=== PATIENT | female | born 1995 | race Caucasian/White ===

== ENCOUNTER 2018-03-04 18:51 | Outpatient (REF) | payer MEDICAID, SELFPAY | END 2018-03-04 19:11 | LOC: NCHCN 18:51 | PROVIDERS: PCP Nurse Practitioner Family; Visit Provider Family Medicine | DX: R34 Anuria and oliguria (principal) | CPT/HCPCS: 87086 ==

== ENCOUNTER 2018-03-23 12:07 | Outpatient (CLI) | payer MEDICAID, SELFPAY ==
[2018-03-23 13:27] LABS: Albumin 4.1 g/dL (3.4-5.0); Anion Gap 12.7 mmol/L (3-11); BUN 11 mg/dL (7-18); CO2 26.3 mmol/L (21.0-32.0); CREATININE 0.31 mg/dL (0.55-1.02); Calcium 9.7 mg/dL (8.5-10.1); Chloride 103 mmol/L (98-107); Glucose 73 mg/dL (70-100); PHOSPHORUS 4.2 mg/dL (2.6-4.7); Potassium 4.1 mmol/L (3.5-5.1); Sodium 142 mmol/L (136-145)
== END 2018-03-23 12:27 ==
PROVIDERS: PCP Nurse Practitioner Family; Visit Provider Nurse Practitioner Gerontology
DX: R34 Anuria and oliguria (principal)
CPT/HCPCS: 36415; 80069

== ENCOUNTER 2018-10-22 12:41 | Emergency (ER) | payer MEDICAID, SELFPAY ==
[2018-10-22] MEDS: Acetaminophen 325 MG TAB 650 MG PO (12:30)
[2018-10-22 12:35] VITALS: PULSE 88; RESP 18; TEMP 36.8; O2SAT 95
--- NOTE | 2018-10-22 12:51 | DI.RAD_ITS ---
SYMPTOMS/DIAGNOSIS: S/P FALL, ? FRACTURE LEFT HUMERUS: AP and transthoracic lateral views were performed. No fracture is identified. Elbow and shoulder are unremarkable as visualized. IMPRESSION: Negative left humerus. AP PELVIS: AP view of the pelvis was obtained and shows chronic severe pelvic deformity and fragmentation of both acetabula and proximal femurs, presumably chronic. Mcnair rods are in place in the lumbar spine and fixation screws transfix the SI joints. No acute fracture identified. LEFT KNEE: Two views were obtained. No acute fracture seen. LEFT WRIST: Three views were obtained. No fracture seen. SUPINE AP AND LATERAL CHEST: Supine views of the chest was performed. Rods are seen through the thoracolumbar spine. There are chronic spine and rib deformities. The heart size appears normal. The lungs are clear. IMPRESSION: No acute abnormality. RIGHT SHOULDER: The positioning is suboptimal. No fracture or dislocation is seen. IMPRESSION: No acute abnormality.
--- NOTE | 2018-10-22 12:56 | ED.GENADUL_ITS ---
Discharge Plan Disposition Patient Disposition: HOME Condition: Stable Discharge Details Chief Complaint: Trauma Clinical Impression: Fall from wheelchair, Abrasion of face, Abrasion of multiple sites of lower extremity, Abrasion of multiple sites of upper extremity and shoulder Primary Care Provider: Lorna Bal ED Provider: Magdalena Calderon Home Meds and New Rx's Prescriptions: Continued lorazepam 1 MG tablet 1 mg PO PRN Qty: 20 RF: 0 diazepam 5 MG/5 ML solution 3 mg PO Q8H PRN Qty: 60 RF: 0 polyethylene glycol 3350 17 GM powder in packet 1 - 2 cap PO DAILY Qty: 1 RF: 3 nystatin 60 GM powder 1 julio cesar Topical QID Qty: 60 RF: 2 capsaicin 60 GM cream 1 julio cesar Topical TID Qty: 60 RF: 2 baclofen 10 MG tablet 1 tab PO BID Qty: 180 RF: 3 levonorgestrel-ethinyl estrad [Introvale] 1 EACH tablets,dose pack,3 month 1 ea PO DAILY Qty: 1 RF: 2 multivitamin [Daily Multi-Vitamin] 1 EACH tablet 1 ea PO DAILY RF: 0 clotrimazole 15 GM cream 15 gm Topical DIRECTED RF: 0 Discharge Instructions Instructions: Head Injury (ED), Abrasion (ED), Fall Prevention (ED) Additional Instructions: Alternate Tylenol and Motrin as needed and directed for pain. Apply ice to the affected area several times daily for 20 minutes at a time. Follow-up with the primary care doctor next week for reevaluation. Return immediately to the emergency department if you develop any worsening or new concerning symptoms. Discharge Data Discharge Date/Time-TO BE ENTERED AT DEPARTURE: 10/22/18 15:36 Discharge Physician: Magdalena Calderon Medical Decision Making 23yo F w/ a history of cerebral palsy, TBI, scoliosis and back surgery who presents status post mechanical fall out of wheelchair. Vitals within normal limits. Patient noted to have abrasion to right face, and multiple extremity abrasions but no deformities. Lungs clear to auscultation. Chest and abdomen no trauma and nontender. No C-spine/T-spine/L-spine step-off or evidence of trauma. Due to being unable to obtain a history, and evidence of trauma, patient sent for CT head/facial bones/cervical spine in addition to chest x-ray, pelvis x- ray, left wrist x-ray, left humerus x-ray, left knee x-ray, right shoulder x-ray all of which were discussed with radiologist and negative. Patient was smiling prior to discharge. Mom felt comfortable taking patient home. She was given a dose of Tylenol here. Instructed to follow-up with primary care doctor for reevaluation and to return here anytime if worse. Medical Records Medical records reviewed: Yes I reviewed the patient's medical records. Imaging Data Radiologic Study: Radiologist's impression: CRANIAL CT: Noncontrast cranial CT was performed. The orbital and temporal bone structures appear intact. The mastoid air cells and paranasal sinuses are well aerated. No acute calvarial or facial fracture identified. There are severe changes of cerebral atrophy which appear chronic with marked encephalomalacia also noted particularly over the cerebral vertex and occipital region on the left. No evidence of acute intracranial hemorrhage, mass effect or midline shift. CONCLUSION: No evidence of acute intracranial injury. CERVICAL SPINE CT: CT examination of the cervical spine was performed utilizing multi-slice acquisition and multi-planar reconstruction. Note is made of Mcnair rods of the upper thoracic region which obscure portions of the upper thoracic posterior elements. No evidence of acute cervical fracture or dislocation. No cervical mass or adenopathy. The tracheal laryngeal structures appear intact. The lung apices appear clear. CONCLUSION: No evidence of acute cervical fracture. FACIAL CT: CT examination of the facial region was performed utilizing multi-slice acquisition and multi-planar reconstruction. Orbital structures appear intact. The paranasal sinuses are well aerated. No fracture seen involving the facial bones. Mandible appears intact as visualized. CONCLUSION: No evidence of acute facial fracture. HPI General Mode of arrival: EMS . Date/Time Provider Initiated Documentation: 10/22/18 13:20 . Limitations to Documentation: physical limitation and other (nonverbal) . Information obtained by: family . HPI Narrative: Patient is a 23-year-old female with a history of cerebral palsy, TBI with history of scoliosis and spine surgery who presents status post fall out of wheelchair. [employer] Worker states that they were pushing wheelchair up a ramp when patient was not secured in properly and she fell forward out of her wheelchair striking her head and extremities on the ground. Patient arrived to ED collared by EMS. Patient is able to make some sounds at baseline but is otherwise nonverbal and unable to provide history. Caretakers deny any LOC or vomiting. Related Data Home Medications Medication Instructions Recorded Confirmed lorazepam 1 mg PO PRN #20 02/24/13 03/24/18 diazepam 3 mg PO Q8H PRN #60 ml 01/19/14 03/24/18 polyethylene glycol 3350 1 - 2 cap PO DAILY #1 bottle 09/20/14 03/24/18 nystatin 1 julio cesar TOPICAL QID #60 gm 12/08/14 03/24/18 capsaicin 1 julio cesar TOPICAL TID #60 gm 04/10/16 03/24/18 baclofen 1 tab PO BID #180 tab 06/13/16 03/24/18 levonorgestrel-ethinyl estrad 1 ea PO DAILY #1 pack 06/13/16 03/24/18 [Introvale] clotrimazole 15 gm TOPICAL DIRECTED 09/08/17 03/24/18 multivitamin [Daily Multi-Vitamin] 1 ea PO DAILY 09/08/17 03/24/18 Allergies Allergy/AdvReac Type Severity Reaction Status Date / Time cyclobenzaprine Allergy Unknown Unverified 09/11/17 06:39 fluoxetine AdvReac Unknown Per Unverified 09/11/17 06:39 caregiver General Stated Complaint: Trauma SANG: 3 Review of Systems Review of Systems All systems reviewed & are unremarkable except as noted in HPI and below Constitutional Reports as per HPI, Denies chills and Denies fever(s) Eyes Denies blurry vision ENT Denies dizziness, Denies sore throat and Denies throat swelling Cardiovascular Denies chest pain and Denies dyspnea Respiratory Denies cough and Denies dyspnea Gastrointestinal Denies abdominal pain, Denies diarrhea and Denies vomiting Genitourinary Denies hematuria and Denies dysuria Musculoskeletal Denies back pain and Denies numbness Integumentary/Breasts Denies lesions and Denies rash Neurologic Denies dizziness, Denies focal weakness and Denies numbness Allergic/Immunologic Denies throat swelling [facility] Medical History Cognitive and neurobehavioral dysfunction following brain injury Femur fracture Idiopathic urticaria Neuromuscular scoliosis Presence of intrathecal baclofen pump Quadriplegic cerebral palsy Scoliosis Spasticity Supraventricular tachycardia Surgical History Mediport placement hip release Social History Smoking/Tobacco Use Status: Never Alcohol Intake: never Drug use: Never Do you feel safe at home: Yes Do you feel safe in your relationship?: Yes Exam Const General: cooperative and no acute distress Orientation: alert and awake [facility] Head images: 1. Superficial abrasions noted to R side of face. No bony deformity. Ears: hearing grossly normal bilaterally, external ears normal and TM's normal bilaterally General nose exam: external nose normal Face and sinus: normal facial exam Mouth: oral mucosae normal Teeth and gingiva: dentition normal Throat: posterior oropharynx normal Eyes General: appearance normal, both eyes and all related structures Eyelids: eyelids normal Pupils: PERRL EOM: EOM intact bilaterally Neck Neck: normal visual inspection Lymphatic: no lymphadenopathy noted Other: in c collar Chest Chest: normal inspection of the chest, normal palpation of entire chest wall and no tenderness Resp Effort & Inspection: normal respiratory effort and able to speak in complete sentences Auscultation: clear to auscultation bilaterally Cardio Rate: regular rate Rhythm: regular rhythm GI Inspection: normal to inspection and no abdominal wall ecchymosis Palpation: soft, not firm, no guarding, no hepatosplenomegaly, no masses and nontender Auscultation: normal bowel sounds Back/Spine/Pelvis Cervical Spine: No step off deformity Thoracic/Lumbar Spine: other (no step off deformity noted to thoracic or lumbar spine) Pelvis: no pain with anterior-posterior compression and no pain with lateral compression Skin General skin exam: no rashes or lesions noted Neuro General: alert and awake Cognition: normal cognition Speech: speech normal Gait: normal gait Motor: muscle tone normal throughout Sensory Exam: no sensory deficits noted Extrem Other: Superficial abrasions noted to left upper arm, right anterior shoulder, bilateral dorsal wrists, bilateral posterior elbows, left anterior knee. No deformities noted to any extremities. Patient has bilateral lower leg atrophy with chronic external rotation at hips b/l. Psych Appearance: grossly normal Mental Status: mental status grossly normal Speech and Movement: speech and movement normal Affect: normal affect Thought Process: normal Course Vital Signs Temperature 98.2 F 10/22/18 12:35 Pulse 88 10/22/18 12:35 Respiratory Rate 18 10/22/18 12:35 Pulse Oximetry 95 10/22/18 12:35 Temperature 98.2 F 10/22/18 12:35 Temperature Source Skin 10/22/18 12:35 Pulse 88 10/22/18 12:35 Respiratory Rate 18 10/22/18 12:35 Pulse Oximetry 95 10/22/18 12:35 Oxygen Delivery Method Room Air 10/22/18 12:35 Oxygen Flow Rate 0 10/22/18 12:35
--- NOTE | 2018-10-22 13:48 | DI.CT_ITS ---
SYMPTOMS/DIAGNOSIS: S/P FALL ONTO GROUND, ABRASIONS RT EYE/FACE, ? ACUTE FACIAL FX/INTRACRANIAL INJURY/CERVICAL FRACTURE CRANIAL CT: Noncontrast cranial CT was performed. The orbital and temporal bone structures appear intact. The mastoid air cells and paranasal sinuses are well aerated. No acute calvarial or facial fracture identified. There are severe changes of cerebral atrophy which appear chronic with marked encephalomalacia also noted particularly over the cerebral vertex and occipital region on the left. No evidence of acute intracranial hemorrhage, mass effect or midline shift. CONCLUSION: No evidence of acute intracranial injury. CERVICAL SPINE CT: CT examination of the cervical spine was performed utilizing multi-slice acquisition and multi-planar reconstruction. Note is made of Mcnair rods of the upper thoracic region which obscure portions of the upper thoracic posterior elements. No evidence of acute cervical fracture or dislocation. No cervical mass or adenopathy. The tracheal laryngeal structures appear intact. The lung apices appear clear. CONCLUSION: No evidence of acute cervical fracture. FACIAL CT: CT examination of the facial region was performed utilizing multi-slice acquisition and multi-planar reconstruction. Orbital structures appear intact. The paranasal sinuses are well aerated. No fracture seen involving the facial bones. Mandible appears intact as visualized. CONCLUSION: No evidence of acute facial fracture.
--- NOTE | 2018-10-22 14:37 | NUR.NOTE ---
Nursing Note: Abrasion noted to right catholic region. Tenderness and swelling noted to the left upper extremity and left lower extremity.
[2018-10-22 15:40] VITALS: BP 100/64; PULSE 91; RESP 14; TEMP 36.6; O2SAT 97
== END 2018-10-22 15:36 | disposition home or self-care (01) ==
PROVIDERS: Emergency Provider Physician Assistant; PCP Nurse Practitioner Family
DX: S00.81XA Abrasion of other part of head, initial encounter (principal); S40.211A Abrasion of right shoulder, initial encounter; S80.212A Abrasion, left knee, initial encounter; S70.212A Abrasion, left hip, initial encounter; S60.812A Abrasion of left wrist, initial encounter; W05.0XXA Fall from non-moving wheelchair, initial encounter; G82.50 Quadriplegia, unspecified
CPT/HCPCS: 90471; 99284; 70450; 70486; 71046; 72125; 72170; 73030; 73060; 73110; 73560

== ENCOUNTER 2020-08-31 00:32 | Outpatient (CLI) | payer MEDICAID, SELFPAY ==
--- NOTE | 2020-08-31 13:00 | NS.NUTBLAN_ITS ---
Tana was referred for Medical Nutrition Therapy for wellness check and for strategies for caregivers to increase her fluid intake. Tana also has constipation that is treated with mirilax and senna. Tana is quadriplegic with cognitive dysfunction, spasticity, hyptonia, contractures with hx of pressure ulcers to bilateral heels. No new labs to review. Estimated Needs: [id number] kcal, 50-60 g protein, 1700 ml fluid Weight taken with pelon lift: 131 lbs Ht: 62 in (documented), appears closer to 60 inches. Up 6 lbs in last 2 years. BMI: 26 (based on 60 inches). Weight is appropriate at this time, but further weight gain is not recommended. Tana appears well nourished, has had excellent mouth care. weaver [place] (Di) reports that Tana typically will only drink [place] Suns and will not drink other fluids unless bargained with. Diet recall indicates well balanced meals with focus on complex carbs, lean protein, fruits and vegetables and healthy fats. Laurie does not regularly eat simple carbs or junk foods, care givers provider her with home cooked meals and encourage her to try new things on regular basis. Reviewed different foods to offer that also count as fluids such as soups, jello, yogurt, pudding, ice pops. Goal at this time is for weight maintenance and adequate hydration. Follow up appt. scheduled for 03/05/21 at 1 pm.
== END 2020-08-31 00:33 | disposition home or self-care (01) ==
LOC: DS 00:32
PROVIDERS: PCP Nurse Practitioner Family; Visit Provider Dietitian, Registered
DX: R63.8 Other symptoms and signs concerning food and fluid intake (principal); K59.00 Constipation, unspecified; G80.0 Spastic quadriplegic cerebral palsy; Z87.820 Personal history of traumatic brain injury; Z68.26 Body mass index [BMI] 26.0-26.9, adult; Z71.3 Dietary counseling and surveillance
CPT/HCPCS: 97802

== ENCOUNTER 2021-04-02 17:35 | Outpatient (REF) | payer MEDICAID, SELFPAY ==
[2021-04-03 14:22] LABS: COVID-19 RT-PCR UVMMC Result Negative (Negative)
== END 2021-04-02 17:36 | disposition home or self-care (01) ==
LOC: NCHCN 17:35
PROVIDERS: PCP Nurse Practitioner Family; Visit Provider Nurse Practitioner Family
DX: Z20.822 Contact with and (suspected) exposure to COVID-19 (principal)
CPT/HCPCS: U0003

== ENCOUNTER 2021-04-04 01:49 | Outpatient (CLI) | payer MEDICAID, SELFPAY ==
--- NOTE | 2021-04-04 | DI.RAD_ITS ---
Exam(s) XR CHEST 2V PA LATERAL EXAM: XR CHEST 2V PA LATERAL CLINICAL HISTORY: MYALGIA,M79.10, FEVER, R50.9. TECHNIQUE: 2D digital imaging was performed. COMPARISON: CR XR CHEST 2V PA LATERAL from 10/22/2018 FINDINGS: Mcnair rods again noted in the thoracolumbar spine. Heart size is normal. The mediastinum is not widened. Lungs are clear. No infiltrates nor pleural effusions. No fractures evident. IMPRESSION: No acute pulmonary findings. DATA REPOSITORY: RADIATION DOSE DELIVERED:
--- NOTE | 2021-04-04 | DI.RAD_ITS ---
Exam(s) XR WRIST RT COMPLETE EXAM: XR WRIST RT COMPLETE CLINICAL HISTORY: RT WRIST PAIN, [id number]. TECHNIQUE: 2D digital imaging was performed. COMPARISON: CR XR WRIST LT COMPLETE from 10/22/2018 FINDINGS: No evidence of acute fracture nor osseous lesions. On the lateral view distal ulna appears somewhat dorsally located. On the AP view is no evidence coleman iance. IMPRESSION: No fracture. DATA REPOSITORY: RADIATION DOSE DELIVERED:
--- NOTE | 2021-04-04 | DI.RAD_ITS ---
Exam(s) XR HIP PELVIS ADULT BL EXAM: XR HIP PELVIS ADULT BL CLINICAL HISTORY: BILAT HIP PAIN, [id number]. TECHNIQUE: 2D digital imaging was performed. COMPARISON: CR XR pelvis AP from 10/22/2018 FINDINGS: Again noted is chronic severe pelvic deformity fragmentation the level both acetabuli and femoral hea d-necks is again evident, this on a chronic basis. No acute fractures evident. No radiographic evid ence of osteomyelitis. Abundant fecal material again noted in rectum, unchanged. Appearance of the distal aspect of the hardware is unchanged. IMPRESSION: Severe pelvic-bilateral hip deformities but without significant radiographic change compared to 10/22. DATA REPOSITORY: RADIATION DOSE DELIVERED:
== END 2021-04-04 02:09 ==
PROVIDERS: PCP Nurse Practitioner Family; Visit Provider Nurse Practitioner Family
DX: M79.18 Myalgia, other site (principal); R50.9 Fever, unspecified; M25.551 Pain in right hip; M25.531 Pain in right wrist; M25.552 Pain in left hip; M85.88 Other specified disorders of bone density and structure, other site
CPT/HCPCS: 73521; 71046; 73110

== ENCOUNTER 2022-06-17 15:19 | Inpatient (IN) | payer MEDICAID, SELFPAY ==
[2022-06-17 15:27] VITALS: BP 112/73; PULSE 107; RESP 16; O2SAT 99
--- NOTE | 2022-06-17 16:00 | DI.RAD_ITS ---
Exam(s) XR THORACIC SPINE COMPLETE EXAM: XR THORACIC SPINE COMPLETE CLINICAL HISTORY: cellulitis, osteo?. TECHNIQUE: 2D digital imaging was performed of the thoracic spine. Three views were obtained. AP, swimmer's and lateral views were obtained. COMPARISON: CR XR CHEST 2V PA LATERAL from 04/04/2021 FINDINGS: BONES: There is no fracture or destructive lesion. The vertebral bodies and posterior elements are un remarkable. Posterior fusion hardware is again seen extending from the thoracic into the lumbar spine . It appears unchanged. DISKS:Alignment is within normal limits. Interverebral disc spaces are maintained. SOFT TISSUE: Visualized lungs are clear. IMPRESSION: No radiographic evidence to suggest acute osteomyelitis. DATA REPOSITORY: RADIATION DOSE DELIVERED:
--- NOTE | 2022-06-17 16:00 | DI.RAD_ITS ---
Exam(s) XR LUMBAR SPINE COMPLETE EXAM: XR LUMBAR SPINE COMPLETE CLINICAL HISTORY: cellulitis, osteo?. TECHNIQUE: 2D digital imaging was performed of the lumbar spine. Five images were obtained. AP, la teral, right oblique, left oblique and L5-S1 spot views were obtained. COMPARISON: CR XR pelvis AP from 10/22/2018 FINDINGS: BONES: No fracture or destructive lesion. Vertebral bodies are unremarkable. There is chronic deform ity of the hips which is only partially imaged. There again seen posterior spinal instrumentation. The orthopedic hardware appears intact. DISKS: Multilevel disc space narrowing is present. ALIGNMENT: There is again seen a right convex curvature of the lower thoracic and lumbar spine. No s pondylolysis or spondylolisthesis. SOFT TISSUE: There is a large amount of stool in the rectum which may represent fecal impaction. IMPRESSION: 1. No evidence to suggest acute osteomyelitis. 2. Large amount of stool in the rectum which may represent fecal impaction. DATA REPOSITORY: RADIATION DOSE DELIVERED:
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
[2022-06-17 16:42] LABS: Lactate 1.5 mmol/L (0.6-1.4)
[2022-06-17 16:44] LABS: Abs Immature Grans 0.02 10^3/uL (0.0-0.06); Absolute Basophil Count 0.05 10^3/uL (0.0-0.2); Absolute Eosinophil Count 0.04 10^3/uL (0.0-0.7); Absolute Lymphocyte Count 1.52 10^3/uL (1.2-3.4); Absolute Monocyte Count 0.48 10^3/uL (0.1-0.8); Absolute Neutrophil Count 7.39 10^3/uL (1.2-6.7); Basophils % 0.5; Eosinophils % 0.4; HCT 37.3 % (36.0-46.0); HGB 11.3 g/dL (11.2-15.7); Immature Grans % 0.2; MCH 23.5 pg (27.0-33.0); MCHC 30.3 % (32.0-36.0); MCV 78 fL (80-95); MPV 9.1 fL (8.0-11.0); Monocytes % 5.1; Neutrophils % 77.8; Platelet Count 565 10^3/uL (130-400); RBC 4.81 10^6/uL (3.93-5.22); RDW 17.2 % (11.7-14.6); RDW-SD 48.2 fL
[2022-06-17 16:47] LABS: ESR 56 mm/hr (0-20)
[2022-06-17 16:57] LABS: ALT 30 U/L (14-59); AST 14 U/L (15-37); Albumin 3.2 g/dL (3.4-5.0); Alkaline Phosphatase 167 U/L (46-116); Anion Gap 8.4 mmol/L (3-11); BUN 7 mg/dL (7-18); Bilirubin, Total 0.2 mg/dL (0.2-1.0); C-Reactive Protein 9.45 mg/dL (0.0-0.3); CO2 30.6 mmol/L (21.0-32.0); CREATININE 0.4 mg/dL (0.55-1.02); Calcium 9.6 mg/dL (8.5-10.1); Chloride 103 mmol/L (98-107); Estimated GFR 138.17 (mL/min/1.73m2); Glucose 101 mg/dL (74-106); Potassium 3.7 mmol/L (3.5-5.1); Sodium 142 mmol/L (136-145); Total Protein 9.1 g/dL (6.4-8.2)
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
[2022-06-17 17:49] LABS: Bilirubin Negative (Negative); Blood Negative (Negative); Clarity Clear (Clear); Glucose Negative (Negative); Ketones Negative (Negative); Leukocyte Esterase Negative (Negative); Nitrite Negative (Negative); Specific Gravity 1.025 (1.005-1.025); Urobilinogen 0.2 mg/dL (Up to 0.2); pH 6.5 (5-8)
[2022-06-17 18:07] LABS: Influenza A PCR Negative (Negative); Influenza B PCR Negative (Negative); RSV PCR Negative (Negative)
[2022-06-17] MEDS: CEFEPIME 2 GM in Normal Saline 100 ML IVPB (18:07)
[2022-06-17 18:15] VITALS: BP 119/83; PULSE 107; RESP 16; O2SAT 99
[2022-06-17 18:19] LABS: COVID-19 PCR Positive (Negative); Source Nasopharynx
--- NOTE | 2022-06-17 18:52 | DI.VRAD_ITS ---
PROCEDURE INFORMATION: Exam: XR Thoracic Spine Exam date and time: 06/17/2022 5:48 PM Age: 26 years old Clinical indication: Other: Cellulitis, osteo? TECHNIQUE: Imaging protocol: Radiologic exam of the thoracic spine. Views: 3 views. COMPARISON: CR XR CHEST 2V PA LATERAL 04/04/2021 8:53 AM FINDINGS: Bones/joints: Again noted is posterior fusion hardware involving the thoracic and lumbar spine, which appears unchanged and intact. There is no focal osseous destruction or abnormal periosteal reaction to suggest acute osteomyelitis. No acute compression fractures or displaced fractures are identified. Again noted is moderate broad-based dextroscoliosis centered around the lower thoracic spine with mild levoscoliosis of the upper thoracic spine. Soft tissues: Unremarkable. Lungs: The lungs are clear. Pleural spaces: There are no pleural effusions present. Gastrointestinal tract: There is increased mild air distention of the stomach. IMPRESSION: No radiographic evidence of acute osteomyelitis. Dictated and Authenticated by: Andrade Rojas MD. Ordering:CHOCO Kay MD
--- NOTE | 2022-06-17 18:53 | DI.VRAD_ITS ---
PROCEDURE INFORMATION: Exam: XR Lumbosacral Spine Exam date and time: 06/17/2022 5:50 PM Age: 26 years old Clinical indication: Other: Cellulitis, osteo? ; Prior surgery; Surgery date: 6+ months TECHNIQUE: Imaging protocol: Radiologic exam of the lumbosacral spine. Views: 4 or 5 views. COMPARISON: CR XR HIP PELVIS ADULT BL 04/04/2021 9:04 AM FINDINGS: Bones/joints: There is hardware prior of posterior spinal fusion extending from the lower thoracic spine to the sacroiliac joints. The screw fixating the right sacroiliac joint is not connected to the posterior right spinal meredith at the lumbar level, unchanged from prior study. There is no evidence for hardware loosening. There is moderate to severe dextroscoliosis of the lumbar spine. No acute compression fractures or displaced fractures are identified. There is multilevel moderate disc space narrowing, which is without clear change. There is no focal osseous destruction or abnormal periosteal reaction to suggest acute osteomyelitis. There is chronic appearing osseous deformity around both hips, only partially imaged, which is without clear change from prior study. Soft tissues: Unremarkable. Gastrointestinal tract: Again noted is a large amount of stool within the rectum suggesting fecal impaction. There is mild air distension of the stomach and a few large bowel loops which could reflect ileus. IMPRESSION: 1. No radiographic evidence of acute osteomyelitis. 2. Moderate to severe lumbar dextroscoliosis. 3. No evidence for loosening of the spinal fusion hardware. 4. Findings suggest fecal impaction, as on prior study. Dictated and Authenticated by: Andrade Rojas MD. Ordering:CHOCO Kay MD
[2022-06-17 19:02] VITALS: BP 132/84; PULSE 131; RESP 18; TEMP 36.7; O2SAT 100
[2022-06-17] MEDS: VANCOMYCIN/WATER (PEG) 1.25 GM/250 ML BAG IV (19:09)
[2022-06-17] MEDS: Baclofen 10 MG TAB PO (19:10)
[2022-06-17] MEDS: Normal Saline Flush 10 ML SYR (19:11)
--- NOTE | 2022-06-17 20:30 | RT.EKG_ITS ---
APPROVED REPORT Exam: Resting ECG Reason for Exam: Elevated HR Patient Location: I HR:145 bpm ECG Measurements Heart Rate 145 AXIS MA 110 P 22 QRSd 82 QRS 14 QT 292 T [id number] QTc 454 Conclusion Sinus tachycardia...rate> 99 Baseline wander in lead(s) V3
[2022-06-17] MEDS: Senna TAB 2 TAB PO (21:23)
[2022-06-17] MEDS: Melatonin 3 MG TAB PO (21:24)
--- NOTE | 2022-06-17 21:44 | CE_ITS ---
Date of service: 06/17/22 Time of Service: 21:44 Event Note: Called for elevated heart rate. [facility] C[facility] states she thinks patient is anxious, calling out in ways that suggest this. Does not seem to be in any pain. Puiles approx 140/regular (130 earlier), BP 132/84, 36.7, 18, 100% RA. lungs clear; jackson tachy/regular; abdomen soft and NT EKG: sinus tach, no STTW changes A/P: Sinus tachycardia, likely due to anxiety. Will give prn Ativan 1 mg IV q4 prn Time Spent with Patient Time spent in critical care(minutes): 20 Time Spent Included: Chart review, Documenting critically ill care, Time at immediate bedside and Discussing critically ill care with other medical staff
[2022-06-17] MEDS: diazePAM 2 MG TAB PO (22:32)
[2022-06-18] MEDS: CEFEPIME 2 GM in Normal Saline 100 ML IVPB ×2 (02:36→16:05)
[2022-06-18 02:44] VITALS: BP 109/63; PULSE 104; RESP 18; TEMP 36.9; O2SAT 99
[2022-06-18 07:11] LABS: ESR 85 mm/hr (0-20)
[2022-06-18 07:25] LABS: C-Reactive Protein 9.14 mg/dL (0.0-0.3); Magnesium 1.9 mg/dL (1.8-2.4)
[2022-06-18] MEDS: Multivitamin TAB 1 TAB PO (08:40)
[2022-06-18] MEDS: Baclofen 10 MG TAB PO ×2 (08:40→20:35)
[2022-06-18] MEDS: Normal Saline Flush 10 ML SYR IVP (08:41)
[2022-06-18] MEDS: Polyethylene Glycol 3350 17 GM PACKET PO (08:41)
[2022-06-18] MEDS: VANCOMYCIN/WATER (PEG) 1.25 GM/250 ML BAG IV ×2 (08:42→16:05)
--- NOTE | 2022-06-18 12:55 | PGE_ITS ---
Date of Service Date of service: 06/18/22 Time of Service: 12:55 Assessment and Plan Assessment and plan (1) Quadriplegia: Assessment and plan: Her history states this is secondary to nonaccidental trauma at age 1. Maintain skin integrity with repositioning as per protocol. (2) Scoliosis: Assessment and plan: With history of surgical correction. (3) Spasticity: Assessment and plan: Cont her routine baclofen dosing and monitor. (4) Cellulitis: Status: Acute Assessment and plan: Area of mild redness at lumbar region over scar from previous surgery. Caregivers endorse that she has had signs representing pain of more than her normal low back pain. Inflammatory markers are elevated; trending Investigate possibility of osteomyelitis - MRI pending; she did not have an IV today for contrast, this will be done by tomorrow. Vancomycin and Cefepime initiated in the ED. MRSA swab pending (5) Lab test positive for detection of COVID-19 virus: Assessment and plan: Positive Covid at the end of February, Positive covid here in the ED, exhibiting no symptoms or signs Covid precautions maintained. (6) DVT prophylaxis: Status: Deleted Assessment and plan: SCDs - holding enoxaparin secondary to possible instrumentation if abscess (7) Discharge planning issues: Status: Deleted Assessment and plan: Return to current living situation - has 17/[address] with Dr Samuel Subjective Subjective Patient reports: no new complaints Exam Narrative Exam Narrative: Semi-fowlers, appears comfortable, interactive with caregiver Const Orientation: alert, awake and oriented to person HENMT Head: normal to inspection and normocephalic Mouth: moist mucous membranes Eyes General: appearance normal, both eyes and all related structures Conjunctivae: conjunctivae normal Neck Neck: normal visual inspection, trachea midline and supple Resp Effort & Inspection: normal respiratory effort and able to speak in complete sentences Auscultation: clear to auscultation bilaterally Cardio Rate: tachycardic (102) Rhythm: regular rhythm Heart Sounds: S1 normal and S2 normal GI Inspection: non-distended Palpation: soft and nontender Back/Spine/Pelvis Back: no CVA tenderness Other: Well-healed surgical incision, some erythema, induration, she reports discomfort when touched around the surgical scar at T12-L3. No drainage, weeping, fluctuance or pointing abscess. Skin General skin exam: erythema Neuro General: no meningeal signs and focal motor deficits present (Quadraplegia.) Cranial Nerves: facial strength normal Extrem General: capillary refill normal and other (Baseline spasticity) Psych Appearance: grossly normal Mental Status: mental status grossly normal Objective Last Vital Signs Temp 36.9 C 06/18/22 02:44 Pulse 104 H 06/18/22 02:44 Resp 18 06/18/22 02:44 BP 109/63 06/18/22 02:44 Pulse Ox 99 06/18/22 02:44 Laboratory Results - last 24 hr 06/17/22 06/17/22 06/17/22 16:30 16:30 16:30 WBC 9.50 RBC 4.81 Hgb 11.3 Hct 37.3 MCV 78 L MCH 23.5 L MCHC 30.3 L RDW 17.2 H Plt Count 565 H MPV 9.1 Immature Gran % 0.2 Neutrophils % 77.8 Lymphocytes % 16.0 Monocytes % 5.1 Eosinophils % 0.4 Basophils % 0.5 Nucleated RBC % 0.0 Absolute Neutrophils 7.39 H Absolute Lymphocytes 1.52 Absolute Monocytes 0.48 Absolute Eosinophils 0.04 Absolute Basophils 0.05 ESR VBG Lactate 1.5 H Sodium 142 Potassium 3.7 Chloride 103 Carbon Dioxide 30.6 Anion Gap 8.4 BUN 7 Creatinine 0.4 L Est GFR (CKD-EPI 2020) 138.17 Glucose 101 Calcium 9.6 Magnesium Total Bilirubin 0.2 AST 14 L ALT 30 Alkaline Phosphatase 167 H C-Reactive Protein 9.45 H Total Protein 9.1 H Albumin 3.2 L Urine Color Urine Clarity Urine pH Ur Specific [place] Urine Protein Urine Ketones Urine Blood Urine Nitrite Urine Bilirubin Urine Urobilinogen Ur Leukocyte Esterase Urine Glucose COVID-19 Source SARS-CoV-2 (PCR) Influenza Type A (PCR) Influenza Type B (PCR) RSV (PCR) 06/17/22 06/17/22 06/17/22 16:30 17:00 17:35 WBC RBC Hgb Hct MCV MCH MCHC RDW Plt Count MPV Immature Gran % Neutrophils % Lymphocytes % Monocytes % Eosinophils % Basophils % Nucleated RBC % Absolute Neutrophils Absolute Lymphocytes Absolute Monocytes Absolute Eosinophils Absolute Basophils ESR 56 H VBG Lactate Sodium Potassium Chloride Carbon Dioxide Anion Gap BUN Creatinine Est GFR (CKD-EPI 2020) Glucose Calcium Magnesium Total Bilirubin AST ALT Alkaline Phosphatase C-Reactive Protein Total Protein Albumin Urine Color Yellow Urine Clarity Clear Urine pH 6.5 Ur Specific [place] 1.025 Urine Protein Negative Urine Ketones Negative Urine Blood Negative Urine Nitrite Negative Urine Bilirubin Negative Urine Urobilinogen 0.2 Ur Leukocyte Esterase Negative Urine Glucose Negative COVID-19 Source Nasopharynx SARS-CoV-2 (PCR) Positive A Influenza Type A (PCR) Negative Influenza Type B (PCR) Negative RSV (PCR) Negative 06/18/22 06/18/22 06:58 06:58 WBC RBC Hgb Hct MCV MCH MCHC RDW Plt Count MPV Immature Gran % Neutrophils % Lymphocytes % Monocytes % Eosinophils % Basophils % Nucleated RBC % Absolute Neutrophils Absolute Lymphocytes Absolute Monocytes Absolute Eosinophils Absolute Basophils ESR 85 H VBG Lactate Sodium Potassium Chloride Carbon Dioxide Anion Gap BUN Creatinine Est GFR (CKD-EPI 2020) Glucose Calcium Magnesium 1.9 Total Bilirubin AST ALT Alkaline Phosphatase C-Reactive Protein 9.14 H Total Protein Albumin Urine Color Urine Clarity Urine pH Ur Specific [place] Urine Protein Urine Ketones Urine Blood Urine Nitrite Urine Bilirubin Urine Urobilinogen Ur Leukocyte Esterase Urine Glucose COVID-19 Source SARS-CoV-2 (PCR) Influenza Type A (PCR) Influenza Type B (PCR) RSV (PCR) Time Spent with Patient Time Spent with Patient: 25-34 minutes Time was spent: preparing to see the patient(eg.review tests), ordering medications,tests, procedures, referring, communicating with other health aged or disabled care worker, indepentently interpreting results and care coordination
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
[2022-06-18 16:18] VITALS: BP 103/63; PULSE 102; RESP 16; TEMP 35.6; O2SAT 98
--- NOTE | 2022-06-19 | DI.US_ITS ---
Exam(s) US SOFT TISS ABD WALL/LOW BACK EXAM: US SOFT TISS ABD WALL/LOW BACK CLINICAL HISTORY: Possible infection. TECHNIQUE: Ultrasound was performed using standard protocol. COMPARISON: No exams were available for comparison FINDINGS: Sonographic assessment utilizing grayscale and color Doppler imaging was performed and targeted to th e area of clinical concern. Targeted ultrasound of the lower back was performed. There does appear to be a subcutaneous fluid co llection measuring 9 x 8 mm. There is a communication to the skin surface noted. This lies deep to the surgical scar. There is edema seen in the soft tissues of the lower back. IMPRESSION: Findings suspicious for subcutaneous fluid collection at the level of the scar on the lower back. Th is may represent an abscess, seroma or resolving hematoma. Please correlate clinically. DATA REPOSITORY:
[2022-06-19] MEDS: CEFEPIME 2 GM in Normal Saline 100 ML IVPB ×3 (01:54→16:48)
[2022-06-19] MEDS: VANCOMYCIN/WATER (PEG) 1.25 GM/250 ML BAG IV ×2 (03:55→17:36)
[2022-06-19 05:30] VITALS: BP 98/59; PULSE 81; RESP 18; TEMP 36.8; O2SAT 100
[2022-06-19 07:22] LABS: Abs Immature Grans 0.03 10^3/uL (0.0-0.06); Absolute Basophil Count 0.03 10^3/uL (0.0-0.2); Absolute Eosinophil Count 0.07 10^3/uL (0.0-0.7); Absolute Lymphocyte Count 2.21 10^3/uL (1.2-3.4); Absolute Monocyte Count 0.46 10^3/uL (0.1-0.8); Absolute Neutrophil Count 4.21 10^3/uL (1.2-6.7); Basophils % 0.4; HCT 31.2 % (36.0-46.0); HGB 9.6 g/dL (11.2-15.7); Immature Grans % 0.4; Lymphocytes % 31.5; MCH 23.6 pg (27.0-33.0); MCHC 30.8 % (32.0-36.0); MCV 77 fL (80-95); MPV 9.5 fL (8.0-11.0); Monocytes % 6.6; Neutrophils % 60.1; Platelet Count 469 10^3/uL (130-400); RBC 4.06 10^6/uL (3.93-5.22); RDW 17.5 % (11.7-14.6); RDW-SD 48.8 fL; WBC 7.01 10^3/uL (4.4-10.8)
[2022-06-19 07:27] LABS: ESR 78 mm/hr (0-20)
[2022-06-19 07:41] LABS: Anion Gap 9.7 mmol/L (3-11); BUN 10 mg/dL (7-18); CO2 25.3 mmol/L (21.0-32.0); CREATININE 0.5 mg/dL (0.55-1.02); Calcium 9.2 mg/dL (8.5-10.1); Chloride 109 mmol/L (98-107); Estimated GFR 130.12 (mL/min/1.73m2); Glucose 84 mg/dL (74-106); Potassium 3.5 mmol/L (3.5-5.1); Sodium 144 mmol/L (136-145)
[2022-06-19 07:44] LABS: C-Reactive Protein 7.54 mg/dL (0.0-0.3)
[2022-06-19] MEDS: Baclofen 10 MG TAB PO ×2 (08:19→19:16)
[2022-06-19] MEDS: Multivitamin TAB 1 TAB PO (08:19)
[2022-06-19] MEDS: Nystatin POWDER 60 GM JAR TP ×3 (08:27→16:49)
[2022-06-19 08:34] VITALS: BP 104/64; PULSE 83; RESP 16; TEMP 36.3; O2SAT 97
[2022-06-19] MEDS: Ondansetron 4 MG/2 ML VIAL IVP (14:03)
[2022-06-19] MEDS: Normal Saline 1,000 ML 125 ML IV (14:04)
[2022-06-19 15:15] VITALS: BP 86/59; PULSE 81; RESP 16; TEMP 37.3; O2SAT 99
[2022-06-19 16:01] LABS: Vancomycin, Trough 18.3 ug/mL (10.0-20.0)
--- NOTE | 2022-06-19 16:09 | CHAPLAIN ---
Tana is a quadriplegic with CP. She lives in a private nursing home. She was resting in bed when I visited and I spoke with her and her caregiver, explained my role and offered support.
--- NOTE | 2022-06-19 16:11 | PDOC.CMPRO ---
- If Service Date Differs Date of service: 06/19/22 Time of Service: 16:11 Care Management Progress Note S/O: Ortho consult; cleared for discharge with outpatient follow up. Anticipated discharge today, CM continues to follow. A: 27 year old female admitted 06/17/22 for cellulitis P: Tana will return home when ready per MD. She will resume current supports and transport via private vehicle with her caregivers/home providers.
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
[2022-06-19] MEDS: Acetaminophen 325 MG TAB PO (19:15)
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
== END 2022-06-19 19:55 | disposition home or self-care (01) | DRG 602 ==
LOC: ER 17:44 → MS 18:36
PROVIDERS: Nurse Practitioner Family; Admitting Provider Family Medicine; Emergency Provider Physician Assistant; PCP Nurse Practitioner Family; Visit Provider Family Medicine
DX: L03.312 Cellulitis of back [any part except buttock and flank] (principal); G80.0 Spastic quadriplegic cerebral palsy; U07.1 COVID-19; I47.1 Supraventricular tachycardia; R25.2 Cramp and spasm; R62.50 Unspecified lack of expected normal physiological development in childhood; M41.86 Other forms of scoliosis, lumbar region; S06.89AS Other specified intracranial injury with loss of consciousness status unknown, sequela; X58.XXXS Exposure to other specified factors, sequela; F41.9 Anxiety disorder, unspecified
CPT/HCPCS: 36415; 36569; 80048; 80053; 85652; 87040; 87081; 87637; 99285; 72072; 72110; 76705; 80202; 81003; 83605; 83735; 85025; 86140; 93005; 93010; 99222; 99239; J2405

== ENCOUNTER 2022-07-15 14:56 | Outpatient (REF) | payer MEDICAID, SELFPAY ==
[2022-07-15 20:09] LABS: Abs Immature Grans 0.02 10^3/uL (0.0-0.06); Absolute Basophil Count 0.02 10^3/uL (0.0-0.2); Absolute Eosinophil Count 0.05 10^3/uL (0.0-0.7); Absolute Lymphocyte Count 1.71 10^3/uL (1.2-3.4); Absolute Monocyte Count 0.37 10^3/uL (0.1-0.8); Absolute Neutrophil Count 3.54 10^3/uL (1.2-6.7); Basophils % 0.4; Eosinophils % 0.9; HCT 34.7 % (36.0-46.0); HGB 10.5 g/dL (11.2-15.7); Immature Grans % 0.4; Lymphocytes % 29.9; MCH 24.6 pg (27.0-33.0); MCHC 30.3 % (32.0-36.0); MCV 82 fL (80-95); Monocytes % 6.5; Neutrophils % 61.9; Platelet Count 515 10^3/uL (130-400); RBC 4.26 10^6/uL (3.93-5.22); RDW 20.3 % (11.7-14.6); RDW-SD 59.6 fL; WBC 5.71 10^3/uL (4.4-10.8)
[2022-07-15 20:22] LABS: ALT 34 U/L (14-59); AST 19 U/L (15-37); Albumin 3.4 g/dL (3.4-5.0); Alkaline Phosphatase 175 U/L (46-116); BUN 9 mg/dL (7-18); Bilirubin, Total 0.2 mg/dL (0.2-1.0); C-Reactive Protein 5.44 mg/dL (0.0-0.3); CREATININE 0.4 mg/dL (0.55-1.02); Calcium 9.3 mg/dL (8.5-10.1); Chloride 106 mmol/L (98-107); Estimated GFR 137.31 (mL/min/1.73m2); Glucose 85 mg/dL (74-106); Potassium 4.4 mmol/L (3.5-5.1); Sodium 140 mmol/L (136-145); Total Protein 8.1 g/dL (6.4-8.2)
[2022-07-15 20:24] LABS: Anisocytosis 2+; Diff Comment RBC Morph Reviewed
== END 2022-07-15 14:57 | disposition home or self-care (01) ==
LOC: NCHCN 14:56
PROVIDERS: PCP Nurse Practitioner Family; Visit Provider Nurse Practitioner Family
DX: K59.09 Other constipation (principal); A41.51 Sepsis due to Escherichia coli [E. coli]; R79.82 Elevated C-reactive protein (CRP)
CPT/HCPCS: 80053; 85025; 86140

== ENCOUNTER 2022-08-07 16:35 | Outpatient (REF) | payer MEDICAID, SELFPAY ==
[2022-08-07 14:41] LABS: Abs Immature Grans 0.02 10^3/uL (0.0-0.06); Absolute Basophil Count 0.03 10^3/uL (0.0-0.2); Absolute Eosinophil Count 0.08 10^3/uL (0.0-0.7); Absolute Lymphocyte Count 2.05 10^3/uL (1.2-3.4); Absolute Monocyte Count 0.42 10^3/uL (0.1-0.8); Basophils % 0.4; Eosinophils % 1.2; HCT 36.7 % (36.0-46.0); HGB 11.5 g/dL (11.2-15.7); Immature Grans % 0.3; Lymphocytes % 29.7; MCH 25.4 pg (27.0-33.0); MCHC 31.3 % (32.0-36.0); MCV 81 fL (80-95); MPV 10.4 fL (8.0-11.0); Monocytes % 6.1; Neutrophils % 62.3; RBC 4.52 10^6/uL (3.93-5.22); RDW 18.7 % (11.7-14.6); RDW-SD 54.8 fL
[2022-08-07 15:10] LABS: Platelet Count 282 10^3/uL (130-400)
== END 2022-08-07 16:36 | disposition home or self-care (01) ==
LOC: NCHCN 16:35
PROVIDERS: PCP Nurse Practitioner Family; Visit Provider Nurse Practitioner Family
DX: A41.51 Sepsis due to Escherichia coli [E. coli] (principal)
CPT/HCPCS: 80053; 85025; 86140

== ENCOUNTER 2022-08-18 17:52 | Outpatient (REF) | payer MEDICAID, SELFPAY ==
[2022-08-18 18:08] LABS: ALT 34 U/L (14-59); AST 29 U/L (15-37); Albumin 3.5 g/dL (3.4-5.0); Alkaline Phosphatase 218 U/L (46-116); BUN 9 mg/dL (7-18); Bilirubin, Total 0.2 mg/dL (0.2-1.0); CREATININE 0.4 mg/dL (0.55-1.02); Calcium 9.3 mg/dL (8.5-10.1); Chloride 105 mmol/L (98-107); Estimated GFR 137.31 (mL/min/1.73m2); Glucose 87 mg/dL (74-106); Potassium 4.3 mmol/L (3.5-5.1); Sodium 139 mmol/L (136-145); Total Protein 8.3 g/dL (6.4-8.2)
== END 2022-08-18 17:53 | disposition home or self-care (01) ==
LOC: LBN 17:52
PROVIDERS: PCP Nurse Practitioner Family; Visit Provider Internal Medicine Addiction Medicine
DX: L03.312 Cellulitis of back [any part except buttock and flank] (principal); M46.26 Osteomyelitis of vertebra, lumbar region; B96.20 Unspecified Escherichia coli [E. coli] as the cause of diseases classified elsewhere; G06.1 Intraspinal abscess and granuloma
CPT/HCPCS: 80053; 85025; 86140

== ENCOUNTER 2022-09-03 12:39 | Outpatient (REF) | payer MEDICAID, SELFPAY ==
[2022-09-03 12:58] LABS: Absolute Basophil Count 0.02 10^3/uL (0.0-0.2); Absolute Eosinophil Count 0.08 10^3/uL (0.0-0.7); Absolute Lymphocyte Count 1.74 10^3/uL (1.2-3.4); Absolute Monocyte Count 0.23 10^3/uL (0.1-0.8); Absolute Neutrophil Count 3.68 10^3/uL (1.2-6.7); Basophils % 0.3; Eosinophils % 1.4; HCT 39.6 % (36.0-46.0); HGB 12.6 g/dL (11.2-15.7); Lymphocytes % 30.3; MCH 24.9 pg (27.0-33.0); MCHC 31.8 % (32.0-36.0); MCV 78 fL (80-95); MPV 9.9 fL (8.0-11.0); Platelet Count 353 10^3/uL (130-400); RBC 5.06 10^6/uL (3.93-5.22); RDW 17.3 % (11.7-14.6); RDW-SD 48.7 fL; WBC 5.75 10^3/uL (4.4-10.8)
[2022-09-03 13:19] LABS: ALT 41 U/L (14-59); AST 22 U/L (15-37); Albumin 3.5 g/dL (3.4-5.0); Alkaline Phosphatase 234 U/L (46-116); Anion Gap 8.6 mmol/L (3-11); BUN 8 mg/dL (7-18); Bilirubin, Total 0.3 mg/dL (0.2-1.0); C-Reactive Protein 3.49 mg/dL (0.0-0.3); CO2 27.4 mmol/L (21.0-32.0); CREATININE 0.5 mg/dL (0.55-1.02); Calcium 9.5 mg/dL (8.5-10.1); Chloride 104 mmol/L (98-107); Estimated GFR 130.12 (mL/min/1.73m2); Glucose 96 mg/dL (74-106); Potassium 4.1 mmol/L (3.5-5.1); Sodium 140 mmol/L (136-145); Total Protein 8.1 g/dL (6.4-8.2)
== END 2022-09-03 12:40 | disposition home or self-care (01) ==
LOC: LBN 12:39
PROVIDERS: PCP Nurse Practitioner Family; Visit Provider Internal Medicine Addiction Medicine
DX: R78.81 Bacteremia (principal); A49.8 Other bacterial infections of unspecified site; L02.818 Cutaneous abscess of other sites; M46.26 Osteomyelitis of vertebra, lumbar region
CPT/HCPCS: 80053; 85025; 86140

== ENCOUNTER 2022-09-19 15:57 | Outpatient (REF) | payer MEDICAID, SELFPAY ==
[2022-09-19 20:57] LABS: ESR 69 mm/hr (0-20)
[2022-09-19 20:58] LABS: Abs Immature Grans 0.01 10^3/uL (0.0-0.06); Absolute Basophil Count 0.04 10^3/uL (0.0-0.2); Absolute Eosinophil Count 0.04 10^3/uL (0.0-0.7); Absolute Lymphocyte Count 1.52 10^3/uL (1.2-3.4); Absolute Monocyte Count 0.28 10^3/uL (0.1-0.8); Absolute Neutrophil Count 4.42 10^3/uL (1.2-6.7); Basophils % 0.6; Eosinophils % 0.6; HCT 39.6 % (36.0-46.0); HGB 12.8 g/dL (11.2-15.7); Immature Grans % 0.2; Lymphocytes % 24.1; MCH 25.4 pg (27.0-33.0); MCHC 32.3 % (32.0-36.0); MCV 79 fL (80-95); MPV 10.5 fL (8.0-11.0); Monocytes % 4.4; Neutrophils % 70.1; Platelet Count 367 10^3/uL (130-400); RBC 5.03 10^6/uL (3.93-5.22); RDW 17.5 % (11.7-14.6); RDW-SD 49.1 fL; WBC 6.31 10^3/uL (4.4-10.8)
[2022-09-19 21:11] LABS: ALT 32 U/L (14-59); AST 20 U/L (15-37); Albumin 3.3 g/dL (3.4-5.0); Alkaline Phosphatase 231 U/L (46-116); Anion Gap 5.9 mmol/L (3-11); BUN 9 mg/dL (7-18); Bilirubin, Total 0.3 mg/dL (0.2-1.0); C-Reactive Protein 2.66 mg/dL (0.0-0.3); CO2 30.1 mmol/L (21.0-32.0); CREATININE 0.4 mg/dL (0.55-1.02); Calcium 9.4 mg/dL (8.5-10.1); Chloride 106 mmol/L (98-107); Estimated GFR 137.31 (mL/min/1.73m2); GGT 34 U/L (5-55); Glucose 103 mg/dL (74-106); Potassium 4.3 mmol/L (3.5-5.1); Sodium 142 mmol/L (136-145)
== END 2022-09-19 15:58 | disposition home or self-care (01) ==
LOC: NCHCN 15:57
PROVIDERS: PCP Nurse Practitioner Family; Visit Provider Nurse Practitioner Family
DX: D64.9 Anemia, unspecified (principal); R74.8 Abnormal levels of other serum enzymes; K59.09 Other constipation; G06.1 Intraspinal abscess and granuloma; E55.9 Vitamin D deficiency, unspecified; R70.0 Elevated erythrocyte sedimentation rate; R79.82 Elevated C-reactive protein (CRP)
CPT/HCPCS: 80053; 82306; 85652; 82977; 85025; 86140

== ENCOUNTER 2022-10-07 13:17 | Outpatient (REF) | payer MEDICAID, SELFPAY ==
[2022-10-07 13:05] LABS: ALT 40 U/L (14-59); AST 31 U/L (15-37); Albumin 3.2 g/dL (3.4-5.0); Alkaline Phosphatase 241 U/L (46-116); Anion Gap 7.1 mmol/L (3-11); BUN 8 mg/dL (7-18); Bilirubin, Total 0.3 mg/dL (0.2-1.0); C-Reactive Protein 4.32 mg/dL (0.0-0.3); CO2 25.9 mmol/L (21.0-32.0); CREATININE 0.4 mg/dL (0.55-1.02); Calcium 8.8 mg/dL (8.5-10.1); Chloride 104 mmol/L (98-107); Estimated GFR 137.31 (mL/min/1.73m2); Glucose 79 mg/dL (74-106); Sodium 137 mmol/L (136-145); Total Protein 7.8 g/dL (6.4-8.2)
== END 2022-10-07 13:18 | disposition home or self-care (01) ==
LOC: LBN 13:17
PROVIDERS: PCP Nurse Practitioner Family; Visit Provider Internal Medicine Addiction Medicine
DX: R78.81 Bacteremia (principal); A49.8 Other bacterial infections of unspecified site; L02.818 Cutaneous abscess of other sites; M46.26 Osteomyelitis of vertebra, lumbar region
CPT/HCPCS: 80053; 85025; 86140

== ENCOUNTER 2022-10-14 12:25 | Outpatient (REF) | payer MEDICAID, SELFPAY ==
[2022-10-14 13:14] LABS: Abs Immature Grans 0.01 10^3/uL (0.0-0.06); Absolute Basophil Count 0.04 10^3/uL (0.0-0.2); Absolute Eosinophil Count 0.06 10^3/uL (0.0-0.7); Absolute Lymphocyte Count 1.54 10^3/uL (1.2-3.4); Absolute Monocyte Count 0.28 10^3/uL (0.1-0.8); Absolute Neutrophil Count 2.99 10^3/uL (1.2-6.7); Basophils % 0.8; Eosinophils % 1.2; HGB 11.1 g/dL (11.2-15.7); Immature Grans % 0.2; Lymphocytes % 31.3; MCH 25.9 pg (27.0-33.0); MCHC 32.6 % (32.0-36.0); MCV 79 fL (80-95); Monocytes % 5.7; Neutrophils % 60.8; RBC 4.29 10^6/uL (3.93-5.22); RDW 18.1 % (11.7-14.6); RDW-SD 51.4 fL; WBC 4.92 10^3/uL (4.4-10.8)
[2022-10-14 13:23] LABS: ALT 39 U/L (14-59); AST 24 U/L (15-37); Albumin 3.2 g/dL (3.4-5.0); Alkaline Phosphatase 236 U/L (46-116); Anion Gap 10.1 mmol/L (3-11); BUN 8 mg/dL (7-18); Bilirubin, Total 0.2 mg/dL (0.2-1.0); C-Reactive Protein 2.94 mg/dL (0.0-0.3); CO2 26.9 mmol/L (21.0-32.0); CREATININE 0.4 mg/dL (0.55-1.02); Calcium 8.7 mg/dL (8.5-10.1); Chloride 104 mmol/L (98-107); Estimated GFR 137.31 (mL/min/1.73m2); Glucose 77 mg/dL (74-106); Potassium 4.6 mmol/L (3.5-5.1); Sodium 141 mmol/L (136-145); Total Protein 7.6 g/dL (6.4-8.2)
[2022-10-14 14:19] LABS: Platelet Count 355 10^3/uL (130-400)
== END 2022-10-14 12:26 | disposition home or self-care (01) ==
LOC: LBN 12:25
PROVIDERS: PCP Nurse Practitioner Family; Visit Provider Internal Medicine Addiction Medicine
DX: R78.81 Bacteremia (principal); A49.8 Other bacterial infections of unspecified site; L02.91 Cutaneous abscess, unspecified; M46.26 Osteomyelitis of vertebra, lumbar region
CPT/HCPCS: 80053; 85025; 86140

== ENCOUNTER 2022-10-21 16:05 | Outpatient (REF) | payer MEDICAID, SELFPAY ==
[2022-10-21 17:46] LABS: Abs Immature Grans 0.01 10^3/uL (0.0-0.06); Absolute Basophil Count 0.03 10^3/uL (0.0-0.2); Absolute Eosinophil Count 0.04 10^3/uL (0.0-0.7); Absolute Lymphocyte Count 1.56 10^3/uL (1.2-3.4); Absolute Monocyte Count 0.19 10^3/uL (0.1-0.8); Absolute Neutrophil Count 2.41 10^3/uL (1.2-6.7); Basophils % 0.7; Eosinophils % 0.9; HCT 35.2 % (36.0-46.0); HGB 11.1 g/dL (11.2-15.7); Immature Grans % 0.2; Lymphocytes % 36.8; MCH 25.5 pg (27.0-33.0); MCHC 31.5 % (32.0-36.0); MCV 81 fL (80-95); MPV 9.2 fL (8.0-11.0); Monocytes % 4.5; Neutrophils % 56.9; Platelet Count 346 10^3/uL (130-400); RBC 4.35 10^6/uL (3.93-5.22); RDW-SD 52.9 fL; WBC 4.24 10^3/uL (4.4-10.8)
[2022-10-21 18:56] LABS: ALT 37 U/L (14-59); AST 21 U/L (15-37); Albumin 3.4 g/dL (3.4-5.0); Alkaline Phosphatase 221 U/L (46-116); Anion Gap 9.8 mmol/L (3-11); BUN 10 mg/dL (7-18); Bilirubin, Total 0.2 mg/dL (0.2-1.0); CO2 27.2 mmol/L (21.0-32.0); CREATININE 0.4 mg/dL (0.55-1.02); Calcium 9.1 mg/dL (8.5-10.1); Chloride 103 mmol/L (98-107); Estimated GFR 137.31 (mL/min/1.73m2); Glucose 88 mg/dL (74-106); Sodium 140 mmol/L (136-145); Total Protein 7.7 g/dL (6.4-8.2)
[2022-10-21 21:22] LABS: ESR 65 mm/hr (0-20)
== END 2022-10-21 16:06 | disposition home or self-care (01) ==
LOC: NCHCN 16:05
PROVIDERS: PCP Nurse Practitioner Family; Visit Provider Nurse Practitioner Family
DX: M86.9 Osteomyelitis, unspecified (principal); R78.81 Bacteremia; A49.8 Other bacterial infections of unspecified site; L02.91 Cutaneous abscess, unspecified
CPT/HCPCS: 80053; 85652; 85025; 86140

== ENCOUNTER 2022-11-11 15:53 | Outpatient (REF) | payer MEDICAID, SELFPAY ==
[2022-11-11 16:11] LABS: Abs Immature Grans 0.01 10^3/uL (0.0-0.06); Absolute Basophil Count 0.02 10^3/uL (0.0-0.2); Absolute Eosinophil Count 0.06 10^3/uL (0.0-0.7); Absolute Lymphocyte Count 1.56 10^3/uL (1.2-3.4); Absolute Monocyte Count 0.33 10^3/uL (0.1-0.8); Absolute Neutrophil Count 2.47 10^3/uL (1.2-6.7); Basophils % 0.4; Eosinophils % 1.3; HCT 35.5 % (36.0-46.0); HGB 11.2 g/dL (11.2-15.7); Immature Grans % 0.2; Lymphocytes % 35.1; MCH 25.9 pg (27.0-33.0); MCHC 31.5 % (32.0-36.0); MCV 82 fL (80-95); Monocytes % 7.4; Neutrophils % 55.6; Platelet Count 323 10^3/uL (130-400); RBC 4.32 10^6/uL (3.93-5.22); RDW 17.7 % (11.7-14.6); WBC 4.45 10^3/uL (4.4-10.8)
[2022-11-11 16:34] LABS: ESR 71 mm/hr (0-20)
[2022-11-11 16:45] LABS: ALT 29 U/L (14-59); AST 15 U/L (15-37); Albumin 3.6 g/dL (3.4-5.0); Alkaline Phosphatase 241 U/L (46-116); Anion Gap 8.6 mmol/L (3-11); BUN 12 mg/dL (7-18); Bilirubin, Total 0.2 mg/dL (0.2-1.0); C-Reactive Protein 5.27 mg/dL (0.0-0.3); CO2 27.4 mmol/L (21.0-32.0); CREATININE 0.3 mg/dL (0.55-1.02); Calcium 9.3 mg/dL (8.5-10.1); Chloride 103 mmol/L (98-107); Estimated GFR 147.17 (mL/min/1.73m2); Glucose 69 mg/dL (74-106); Potassium 4.6 mmol/L (3.5-5.1); Sodium 139 mmol/L (136-145)
[2022-11-11 16:47] LABS: Vitamin D 25 Total 24.5 ng/mL (30-100)
== END 2022-11-11 15:54 | disposition home or self-care (01) ==
LOC: NCHCN 15:53
PROVIDERS: PCP Nurse Practitioner Family; Visit Provider Nurse Practitioner Family
DX: E55.9 Vitamin D deficiency, unspecified (principal); D64.9 Anemia, unspecified; K59.00 Constipation, unspecified; M86.9 Osteomyelitis, unspecified; G82.50 Quadriplegia, unspecified
CPT/HCPCS: 80053; 82306; 85652; 85025; 86140

== ENCOUNTER 2022-11-25 10:25 | Outpatient (REF) | payer MEDICAID, SELFPAY ==
[2022-11-25 13:28] LABS: Abs Immature Grans 0.01 10^3/uL (0.0-0.06); Absolute Basophil Count 0.02 10^3/uL (0.0-0.2); Absolute Eosinophil Count 0.05 10^3/uL (0.0-0.7); Absolute Lymphocyte Count 1.52 10^3/uL (1.2-3.4); Absolute Monocyte Count 0.17 10^3/uL (0.1-0.8); Absolute Neutrophil Count 1.75 10^3/uL (1.2-6.7); Basophils % 0.6; Eosinophils % 1.4; HCT 36.7 % (36.0-46.0); HGB 11.7 g/dL (11.2-15.7); Immature Grans % 0.3; Lymphocytes % 43.2; MCH 26.6 pg (27.0-33.0); MCHC 31.9 % (32.0-36.0); MCV 83 fL (80-95); MPV 9.7 fL (8.0-11.0); Monocytes % 4.8; Neutrophils % 49.7; Platelet Count 302 10^3/uL (130-400); RDW 18.3 % (11.7-14.6); RDW-SD 55.8 fL; WBC 3.52 10^3/uL (4.4-10.8)
[2022-11-25 13:43] LABS: ALT 51 U/L (14-59); AST 31 U/L (15-37); Albumin 3.5 g/dL (3.4-5.0); Alkaline Phosphatase 258 U/L (46-116); Anion Gap 7.5 mmol/L (3-11); BUN 12 mg/dL (7-18); Bilirubin, Total 0.2 mg/dL (0.2-1.0); C-Reactive Protein 2.13 mg/dL (0.0-0.3); CO2 25.5 mmol/L (21.0-32.0); CREATININE 0.4 mg/dL (0.55-1.02); Calcium 8.9 mg/dL (8.5-10.1); Chloride 105 mmol/L (98-107); Estimated GFR 137.31 (mL/min/1.73m2); Glucose 103 mg/dL (74-106); Potassium 3.9 mmol/L (3.5-5.1); Sodium 138 mmol/L (136-145); Total Protein 7.8 g/dL (6.4-8.2)
== END 2022-11-25 10:26 | disposition home or self-care (01) ==
LOC: LBN 10:25
PROVIDERS: PCP Nurse Practitioner Family; Visit Provider Internal Medicine Addiction Medicine
DX: R78.81 Bacteremia (principal); A49.8 Other bacterial infections of unspecified site; L02.818 Cutaneous abscess of other sites; M60.08 Infective myositis, other site; M46.26 Osteomyelitis of vertebra, lumbar region
CPT/HCPCS: 80053; 85025; 86140

== ENCOUNTER 2022-12-02 10:31 | Outpatient (REF) | payer MEDICAID, SELFPAY ==
[2022-12-02 11:16] LABS: Abs Immature Grans 0.02 10^3/uL (0.0-0.06); Absolute Basophil Count 0.02 10^3/uL (0.0-0.2); Absolute Eosinophil Count 0.05 10^3/uL (0.0-0.7); Absolute Lymphocyte Count 1.43 10^3/uL (1.2-3.4); Absolute Monocyte Count 0.24 10^3/uL (0.1-0.8); Absolute Neutrophil Count 2.62 10^3/uL (1.2-6.7); Basophils % 0.5; Eosinophils % 1.1; HCT 34.9 % (36.0-46.0); HGB 11.4 g/dL (11.2-15.7); Immature Grans % 0.5; Lymphocytes % 32.6; MCHC 32.7 % (32.0-36.0); MCV 83 fL (80-95); MPV 9.2 fL (8.0-11.0); Monocytes % 5.5; Neutrophils % 59.8; Platelet Count 294 10^3/uL (130-400); RBC 4.22 10^6/uL (3.93-5.22); RDW 18.1 % (11.7-14.6); RDW-SD 54.5 fL; WBC 4.38 10^3/uL (4.4-10.8)
== END 2022-12-02 10:32 | disposition home or self-care (01) ==
LOC: LBN 10:31
PROVIDERS: PCP Nurse Practitioner Family; Visit Provider Internal Medicine Addiction Medicine
DX: M48.26 Kissing spine, lumbar region (principal); R78.81 Bacteremia; L02.91 Cutaneous abscess, unspecified
CPT/HCPCS: 80053; 85025; 86140

== ENCOUNTER 2022-12-09 13:37 | Outpatient (REF) | payer MEDICAID, SELFPAY ==
[2022-12-09 12:32] LABS: Abs Immature Grans 0.01 10^3/uL (0.0-0.06); Absolute Basophil Count 0.02 10^3/uL (0.0-0.2); Absolute Eosinophil Count 0.06 10^3/uL (0.0-0.7); Absolute Lymphocyte Count 1.37 10^3/uL (1.2-3.4); Absolute Monocyte Count 0.22 10^3/uL (0.1-0.8); Absolute Neutrophil Count 2.37 10^3/uL (1.2-6.7); Basophils % 0.5; Eosinophils % 1.5; HCT 37.4 % (36.0-46.0); HGB 11.9 g/dL (11.2-15.7); Immature Grans % 0.2; Lymphocytes % 33.8; MCH 26.7 pg (27.0-33.0); MCHC 31.8 % (32.0-36.0); MCV 84 fL (80-95); Monocytes % 5.4; Neutrophils % 58.6; RBC 4.46 10^6/uL (3.93-5.22); RDW 17.3 % (11.7-14.6); RDW-SD 53.2 fL; WBC 4.05 10^3/uL (4.4-10.8)
[2022-12-09 12:47] LABS: ALT 27 U/L (14-59); AST 16 U/L (15-37); Albumin 3.6 g/dL (3.4-5.0); Alkaline Phosphatase 272 U/L (46-116); Anion Gap 11.6 mmol/L (3-11); BUN 11 mg/dL (7-18); Bilirubin, Total 0.2 mg/dL (0.2-1.0); CO2 26.4 mmol/L (21.0-32.0); CREATININE 0.5 mg/dL (0.55-1.02); Calcium 9.2 mg/dL (8.5-10.1); Chloride 104 mmol/L (98-107); Estimated GFR 130.12 (mL/min/1.73m2); Glucose 91 mg/dL (74-106); Potassium 4.3 mmol/L (3.5-5.1); Sodium 142 mmol/L (136-145)
[2022-12-09 13:15] LABS: Diff Comment Diff Reviewed; RBC Morphology Normal
== END 2022-12-09 13:38 | disposition home or self-care (01) ==
LOC: LBN 13:37
PROVIDERS: PCP Nurse Practitioner Family; Visit Provider Nurse Practitioner Family
DX: L03.312 Cellulitis of back [any part except buttock and flank] (principal); M46.26 Osteomyelitis of vertebra, lumbar region; B96.20 Unspecified Escherichia coli [E. coli] as the cause of diseases classified elsewhere; Z79.2 Long term (current) use of antibiotics; R74.8 Abnormal levels of other serum enzymes; R79.82 Elevated C-reactive protein (CRP)
CPT/HCPCS: 80053; 85025; 86140

== ENCOUNTER 2022-12-16 12:43 | Outpatient (REF) | payer MEDICAID, SELFPAY ==
[2022-12-16 11:27] LABS: Abs Immature Grans 0.01 10^3/uL (0.0-0.06); Absolute Basophil Count 0.03 10^3/uL (0.0-0.2); Absolute Eosinophil Count 0.07 10^3/uL (0.0-0.7); Absolute Lymphocyte Count 1.62 10^3/uL (1.2-3.4); Absolute Monocyte Count 0.26 10^3/uL (0.1-0.8); Absolute Neutrophil Count 2.32 10^3/uL (1.2-6.7); Basophils % 0.7; Eosinophils % 1.6; HCT 36.1 % (36.0-46.0); HGB 11.8 g/dL (11.2-15.7); Immature Grans % 0.2; Lymphocytes % 37.6; MCH 27.1 pg (27.0-33.0); MCHC 32.7 % (32.0-36.0); MCV 83 fL (80-95); MPV 9.5 fL (8.0-11.0); Neutrophils % 53.9; Platelet Count 352 10^3/uL (130-400); RBC 4.35 10^6/uL (3.93-5.22); RDW 16.5 % (11.7-14.6); RDW-SD 49.4 fL; WBC 4.31 10^3/uL (4.4-10.8)
[2022-12-16 11:30] LABS: ESR 83 mm/hr (0-20)
[2022-12-16 11:44] LABS: ALT 24 U/L (14-59); AST 17 U/L (15-37); Albumin 3.7 g/dL (3.4-5.0); Alkaline Phosphatase 310 U/L (46-116); Anion Gap 10.2 mmol/L (3-11); BUN 8 mg/dL (7-18); Bilirubin, Total 0.2 mg/dL (0.2-1.0); C-Reactive Protein 5.72 mg/dL (0.0-0.3); CO2 25.8 mmol/L (21.0-32.0); CREATININE 0.4 mg/dL (0.55-1.02); Calcium 9.5 mg/dL (8.5-10.1); Chloride 101 mmol/L (98-107); Estimated GFR 137.31 (mL/min/1.73m2); Glucose 74 mg/dL (74-106); Potassium 4.1 mmol/L (3.5-5.1); Sodium 137 mmol/L (136-145); Total Protein 8.4 g/dL (6.4-8.2)
== END 2022-12-16 12:44 | disposition home or self-care (01) ==
LOC: LBN 12:43
PROVIDERS: PCP Nurse Practitioner Family; Visit Provider Nurse Practitioner Family
DX: R79.82 Elevated C-reactive protein (CRP) (principal); M60.88 Other myositis, other site; R74.8 Abnormal levels of other serum enzymes; Z79.2 Long term (current) use of antibiotics; M46.26 Osteomyelitis of vertebra, lumbar region; R70.0 Elevated erythrocyte sedimentation rate
CPT/HCPCS: 80053; 85652; 85025; 86140

== ENCOUNTER 2022-12-23 13:10 | Outpatient (REF) | payer MEDICAID, SELFPAY ==
[2022-12-23 16:51] LABS: Albumin 3.7 g/dL (3.4-5.0); Alkaline Phosphatase 281 U/L (46-116); BUN 9 mg/dL (7-18); Bilirubin, Total 0.2 mg/dL (0.2-1.0); CREATININE 0.3 mg/dL (0.55-1.02); Chloride 102 mmol/L (98-107); Estimated GFR 147.17 (mL/min/1.73m2); Glucose 88 mg/dL (74-106); Potassium 4.2 mmol/L (3.5-5.1); Sodium 138 mmol/L (136-145); Total Protein 8.3 g/dL (6.4-8.2)
[2022-12-23 16:52] LABS: ALT 26 U/L (14-59); AST 15 U/L (15-37); C-Reactive Protein 2.26 mg/dL (0.0-0.3)
== END 2022-12-23 13:11 | disposition home or self-care (01) ==
LOC: LBN 13:10
PROVIDERS: PCP Nurse Practitioner Family; Visit Provider Nurse Practitioner Family
DX: M46.26 Osteomyelitis of vertebra, lumbar region (principal); L03.312 Cellulitis of back [any part except buttock and flank]; G06.1 Intraspinal abscess and granuloma; B96.20 Unspecified Escherichia coli [E. coli] as the cause of diseases classified elsewhere
CPT/HCPCS: 80053; 85652; 85025; 86140

== ENCOUNTER 2022-12-24 16:04 | Outpatient (REF) | payer MEDICAID, SELFPAY ==
[2022-12-24 17:31] LABS: Absolute Basophil Count 0.02 10^3/uL (0.0-0.2); Absolute Eosinophil Count 0.05 10^3/uL (0.0-0.7); Absolute Lymphocyte Count 1.39 10^3/uL (1.2-3.4); Absolute Monocyte Count 0.29 10^3/uL (0.1-0.8); Absolute Neutrophil Count 1.99 10^3/uL (1.2-6.7); Basophils % 0.5; Eosinophils % 1.3; HCT 37.7 % (36.0-46.0); HGB 12.4 g/dL (11.2-15.7); Lymphocytes % 37.2; MCH 27.8 pg (27.0-33.0); MCHC 32.9 % (32.0-36.0); MCV 85 fL (80-95); MPV 9.7 fL (8.0-11.0); Monocytes % 7.8; Neutrophils % 53.2; Platelet Count 346 10^3/uL (130-400); RBC 4.46 10^6/uL (3.93-5.22); RDW 16.5 % (11.7-14.6); RDW-SD 50.4 fL; WBC 3.74 10^3/uL (4.4-10.8)
[2022-12-24 18:06] LABS: ESR 77 mm/hr (0-20)
== END 2022-12-24 16:05 | disposition home or self-care (01) ==
LOC: LBN 16:04
PROVIDERS: PCP Nurse Practitioner Family; Visit Provider Nurse Practitioner Family
DX: L03.312 Cellulitis of back [any part except buttock and flank] (principal); M46.26 Osteomyelitis of vertebra, lumbar region; B96.20 Unspecified Escherichia coli [E. coli] as the cause of diseases classified elsewhere; G06.1 Intraspinal abscess and granuloma; R70.0 Elevated erythrocyte sedimentation rate
CPT/HCPCS: 85652; 85025

== ENCOUNTER 2022-12-30 10:24 | Outpatient (REF) | payer MEDICAID, SELFPAY ==
[2022-12-30 11:40] LABS: Abs Immature Grans 0.01 10^3/uL (0.0-0.06); Absolute Basophil Count 0.02 10^3/uL (0.0-0.2); Absolute Eosinophil Count 0.08 10^3/uL (0.0-0.7); Absolute Lymphocyte Count 1.46 10^3/uL (1.2-3.4); Absolute Monocyte Count 0.25 10^3/uL (0.1-0.8); Absolute Neutrophil Count 2.16 10^3/uL (1.2-6.7); Basophils % 0.5; HGB 12.1 g/dL (11.2-15.7); Immature Grans % 0.3; Lymphocytes % 36.7; MCHC 31.8 % (32.0-36.0); MCV 85 fL (80-95); MPV 9.5 fL (8.0-11.0); Monocytes % 6.3; Neutrophils % 54.2; Platelet Count 309 10^3/uL (130-400); RBC 4.48 10^6/uL (3.93-5.22); RDW 16.2 % (11.7-14.6); WBC 3.98 10^3/uL (4.4-10.8)
[2022-12-30 12:10] LABS: ALT 32 U/L (14-59); AST 23 U/L (15-37); Albumin 3.6 g/dL (3.4-5.0); Alkaline Phosphatase 287 U/L (46-116); BUN 11 mg/dL (7-18); Bilirubin, Total 0.1 mg/dL (0.2-1.0); C-Reactive Protein 2.41 mg/dL (0.0-0.3); CREATININE 0.4 mg/dL (0.55-1.02); Calcium 9.2 mg/dL (8.5-10.1); Chloride 102 mmol/L (98-107); Estimated GFR 137.31 (mL/min/1.73m2); Glucose 95 mg/dL (74-106); Sodium 139 mmol/L (136-145)
== END 2022-12-30 10:25 | disposition home or self-care (01) ==
LOC: LBN 10:24
PROVIDERS: PCP Nurse Practitioner Family; Visit Provider Internal Medicine Addiction Medicine
DX: M46.26 Osteomyelitis of vertebra, lumbar region (principal); M60.88 Other myositis, other site; L02.818 Cutaneous abscess of other sites; A49.8 Other bacterial infections of unspecified site; R78.81 Bacteremia
CPT/HCPCS: 80053; 85025; 86140

== ENCOUNTER 2023-01-05 14:35 | Outpatient (REF) | payer MEDICAID, SELFPAY ==
[2023-01-05 13:37] LABS: Absolute Basophil Count 0.02 10^3/uL (0.0-0.2); Absolute Eosinophil Count 0.04 10^3/uL (0.0-0.7); Absolute Lymphocyte Count 1.42 10^3/uL (1.2-3.4); Absolute Monocyte Count 0.21 10^3/uL (0.1-0.8); Absolute Neutrophil Count 2.06 10^3/uL (1.2-6.7); Basophils % 0.5; Eosinophils % 1.1; HCT 39.9 % (36.0-46.0); HGB 12.6 g/dL (11.2-15.7); Lymphocytes % 37.9; MCHC 31.6 % (32.0-36.0); MCV 89 fL (80-95); MPV 9.9 fL (8.0-11.0); Monocytes % 5.6; Neutrophils % 54.9; Platelet Count 324 10^3/uL (130-400); RDW 16.6 % (11.7-14.6); RDW-SD 53.1 fL; WBC 3.75 10^3/uL (4.4-10.8)
[2023-01-05 14:15] LABS: ALT 31 U/L (14-59); AST 20 U/L (15-37); Albumin 3.7 g/dL (3.4-5.0); Alkaline Phosphatase 296 U/L (46-116); Anion Gap 10.3 mmol/L (3-11); BUN 10 mg/dL (7-18); Bilirubin, Total 0.2 mg/dL (0.2-1.0); CO2 26.7 mmol/L (21.0-32.0); CREATININE 0.4 mg/dL (0.55-1.02); Calcium 9.2 mg/dL (8.5-10.1); Chloride 101 mmol/L (98-107); Estimated GFR 137.31 (mL/min/1.73m2); Glucose 78 mg/dL (74-106); Potassium 4.2 mmol/L (3.5-5.1); Sodium 138 mmol/L (136-145); Total Protein 8.3 g/dL (6.4-8.2)
== END 2023-01-05 14:36 | disposition home or self-care (01) ==
LOC: NCHCN 14:35
PROVIDERS: PCP Nurse Practitioner Family; Visit Provider Nurse Practitioner Family
DX: L03.312 Cellulitis of back [any part except buttock and flank] (principal); G06.1 Intraspinal abscess and granuloma; B96.20 Unspecified Escherichia coli [E. coli] as the cause of diseases classified elsewhere
CPT/HCPCS: 80053; 85652; 85025; 86140

== ENCOUNTER 2023-01-12 13:47 | Outpatient (REF) | payer MEDICAID, SELFPAY ==
[2023-01-12 15:21] LABS: HCT 37.3 % (36.0-46.0); MCH 27.5 pg (27.0-33.0); MCHC 32.2 % (32.0-36.0); MCV 85 fL (80-95); MPV 10.4 fL (8.0-11.0); Platelet Count 312 10^3/uL (130-400); RBC 4.37 10^6/uL (3.93-5.22); RDW-SD 50.4 fL; WBC 3.94 10^3/uL (4.4-10.8)
[2023-01-12 15:25] LABS: ESR 66 mm/hr (0-20)
== END 2023-01-12 13:48 | disposition home or self-care (01) ==
LOC: LBN 13:47
PROVIDERS: PCP Nurse Practitioner Family; Visit Provider Nurse Practitioner Family
DX: G06.1 Intraspinal abscess and granuloma (principal); M46.26 Osteomyelitis of vertebra, lumbar region; B96.20 Unspecified Escherichia coli [E. coli] as the cause of diseases classified elsewhere
CPT/HCPCS: 80053; 85027; 85652; 86140

== ENCOUNTER 2023-01-13 14:34 | Outpatient (REF) | payer MEDICAID, SELFPAY ==
[2023-01-13 15:20] LABS: Abs Immature Grans 0.01 10^3/uL (0.0-0.06); Absolute Basophil Count 0.02 10^3/uL (0.0-0.2); Absolute Eosinophil Count 0.05 10^3/uL (0.0-0.7); Absolute Lymphocyte Count 1.36 10^3/uL (1.2-3.4); Absolute Monocyte Count 0.19 10^3/uL (0.1-0.8); Absolute Neutrophil Count 2.08 10^3/uL (1.2-6.7); Basophils % 0.5; Eosinophils % 1.3; HCT 39.2 % (36.0-46.0); HGB 12.8 g/dL (11.2-15.7); Immature Grans % 0.3; Lymphocytes % 36.7; MCH 27.5 pg (27.0-33.0); MCHC 32.7 % (32.0-36.0); MCV 84 fL (80-95); MPV 9.4 fL (8.0-11.0); Monocytes % 5.1; Neutrophils % 56.1; Platelet Count 308 10^3/uL (130-400); RBC 4.65 10^6/uL (3.93-5.22); RDW 16.3 % (11.7-14.6); RDW-SD 50.4 fL; WBC 3.71 10^3/uL (4.4-10.8)
[2023-01-13 15:37] LABS: ALT 23 U/L (14-59); AST 13 U/L (15-37); Albumin 3.7 g/dL (3.4-5.0); Alkaline Phosphatase 282 U/L (46-116); Anion Gap 11.2 mmol/L (3-11); BUN 9 mg/dL (7-18); Bilirubin, Total 0.1 mg/dL (0.2-1.0); C-Reactive Protein 2.68 mg/dL (0.0-0.3); CO2 24.8 mmol/L (21.0-32.0); CREATININE 0.4 mg/dL (0.55-1.02); Calcium 9.6 mg/dL (8.5-10.1); Chloride 103 mmol/L (98-107); Estimated GFR 137.31 (mL/min/1.73m2); Glucose 96 mg/dL (74-106); Potassium 4.2 mmol/L (3.5-5.1); Sodium 139 mmol/L (136-145); Total Protein 8.6 g/dL (6.4-8.2)
== END 2023-01-13 14:35 | disposition home or self-care (01) ==
LOC: NCHCN 14:34
PROVIDERS: PCP Nurse Practitioner Family; Visit Provider Nurse Practitioner Family
DX: M46.26 Osteomyelitis of vertebra, lumbar region (principal); B96.20 Unspecified Escherichia coli [E. coli] as the cause of diseases classified elsewhere; G06.1 Intraspinal abscess and granuloma; R79.82 Elevated C-reactive protein (CRP); R79.89 Other specified abnormal findings of blood chemistry
CPT/HCPCS: 80053; 85025; 86140

== ENCOUNTER 2023-01-20 15:03 | Outpatient (REF) | payer MEDICAID, SELFPAY ==
[2023-01-20 16:56] LABS: Absolute Basophil Count 0.02 10^3/uL (0.0-0.2); Absolute Eosinophil Count 0.05 10^3/uL (0.0-0.7); Absolute Lymphocyte Count 1.26 10^3/uL (1.2-3.4); Absolute Monocyte Count 0.16 10^3/uL (0.1-0.8); Absolute Neutrophil Count 1.64 10^3/uL (1.2-6.7); Basophils % 0.6; Eosinophils % 1.6; HCT 38.1 % (36.0-46.0); HGB 12.3 g/dL (11.2-15.7); Lymphocytes % 40.3; MCH 27.6 pg (27.0-33.0); MCHC 32.3 % (32.0-36.0); MCV 86 fL (80-95); MPV 9.6 fL (8.0-11.0); Monocytes % 5.1; Neutrophils % 52.4; Platelet Count 304 10^3/uL (130-400); RBC 4.45 10^6/uL (3.93-5.22); RDW 15.9 % (11.7-14.6); RDW-SD 49.6 fL; WBC 3.13 10^3/uL (4.4-10.8)
[2023-01-20 16:58] LABS: ESR 65 mm/hr (0-20)
[2023-01-20 17:03] LABS: ALT 18 U/L (14-59); AST 17 U/L (15-37); Albumin 3.6 g/dL (3.4-5.0); Alkaline Phosphatase 272 U/L (46-116); Anion Gap 10.9 mmol/L (3-11); BUN 12 mg/dL (7-18); Bilirubin, Total 0.1 mg/dL (0.2-1.0); C-Reactive Protein 1.95 mg/dL (0.0-0.3); CO2 26.1 mmol/L (21.0-32.0); CREATININE 0.4 mg/dL (0.55-1.02); Calcium 9.4 mg/dL (8.5-10.1); Chloride 104 mmol/L (98-107); Estimated GFR 137.31 (mL/min/1.73m2); Glucose 139 mg/dL (74-106); Potassium 3.7 mmol/L (3.5-5.1); Sodium 141 mmol/L (136-145); Total Protein 8.2 g/dL (6.4-8.2)
[2023-01-20 17:19] LABS: Vitamin D 25 Total 35.1 ng/mL (30-100)
== END 2023-01-20 15:04 | disposition home or self-care (01) ==
LOC: NCHCN 15:03
PROVIDERS: PCP Nurse Practitioner Family; Visit Provider Nurse Practitioner Family
DX: G06.1 Intraspinal abscess and granuloma (principal); M46.26 Osteomyelitis of vertebra, lumbar region; B96.20 Unspecified Escherichia coli [E. coli] as the cause of diseases classified elsewhere
CPT/HCPCS: 80053; 82306; 85652; 85025; 86140

== ENCOUNTER 2023-01-27 15:07 | Outpatient (REF) | payer MEDICAID, SELFPAY ==
[2023-01-27 15:36] LABS: Abs Immature Grans 0.01 10^3/uL (0.0-0.06); Absolute Basophil Count 0.01 10^3/uL (0.0-0.2); Absolute Eosinophil Count 0.06 10^3/uL (0.0-0.7); Absolute Monocyte Count 0.27 10^3/uL (0.1-0.8); Absolute Neutrophil Count 2.53 10^3/uL (1.2-6.7); Basophils % 0.2; Eosinophils % 1.4; HCT 36.8 % (36.0-46.0); HGB 11.9 g/dL (11.2-15.7); Immature Grans % 0.2; Lymphocytes % 31.1; MCH 27.4 pg (27.0-33.0); MCHC 32.3 % (32.0-36.0); MCV 85 fL (80-95); MPV 9.5 fL (8.0-11.0); Monocytes % 6.5; Neutrophils % 60.6; Platelet Count 294 10^3/uL (130-400); RBC 4.35 10^6/uL (3.93-5.22); RDW 15.9 % (11.7-14.6); RDW-SD 49.5 fL; WBC 4.18 10^3/uL (4.4-10.8)
[2023-01-27 15:53] LABS: ALT 38 U/L (14-59); AST 27 U/L (15-37); Albumin 3.5 g/dL (3.4-5.0); Alkaline Phosphatase 277 U/L (46-116); BUN 12 mg/dL (7-18); Bilirubin, Total 0.1 mg/dL (0.2-1.0); C-Reactive Protein 2.91 mg/dL (0.0-0.3); CREATININE 0.5 mg/dL (0.55-1.02); Calcium 9.5 mg/dL (8.5-10.1); Chloride 104 mmol/L (98-107); Estimated GFR 130.12 (mL/min/1.73m2); Glucose 104 mg/dL (74-106); Potassium 4.2 mmol/L (3.5-5.1); Sodium 138 mmol/L (136-145); Total Protein 8.1 g/dL (6.4-8.2)
[2023-01-27 23:44] LABS: ESR (LRH) 85 mm/hr
== END 2023-01-27 15:08 | disposition home or self-care (01) ==
LOC: NCHCN 15:07
PROVIDERS: PCP Nurse Practitioner Family; Visit Provider Nurse Practitioner Family
DX: G06.1 Intraspinal abscess and granuloma (principal); M46.26 Osteomyelitis of vertebra, lumbar region; B96.20 Unspecified Escherichia coli [E. coli] as the cause of diseases classified elsewhere
CPT/HCPCS: 80053; 85652; 85025; 86140

== ENCOUNTER 2023-02-03 18:18 | Outpatient (REF) | payer MEDICAID, SELFPAY ==
[2023-02-03 12:32] LABS: Abs Immature Grans 0.02 10^3/uL (0.0-0.06); Absolute Basophil Count 0.02 10^3/uL (0.0-0.2); Absolute Eosinophil Count 0.03 10^3/uL (0.0-0.7); Absolute Lymphocyte Count 1.03 10^3/uL (1.2-3.4); Basophils % 0.4; Eosinophils % 0.6; HCT 37.6 % (36.0-46.0); HGB 12.3 g/dL (11.2-15.7); Immature Grans % 0.4; MCH 27.7 pg (27.0-33.0); MCHC 32.7 % (32.0-36.0); MCV 85 fL (80-95); MPV 9.8 fL (8.0-11.0); Monocytes % 4.1; Neutrophils % 73.5; Platelet Count 315 10^3/uL (130-400); RBC 4.44 10^6/uL (3.93-5.22); RDW 15.9 % (11.7-14.6); RDW-SD 48.8 fL
[2023-02-03 13:11] LABS: INR 1.1 (0.9-1.1); PTT Activated 35.8 sec (23.6-32.8); Prothrombin Time 10.6 sec (9.1-11.1)
[2023-02-03 13:38] LABS: ALT 41 U/L (14-59); AST 16 U/L (15-37); Albumin 3.7 g/dL (3.4-5.0); Alkaline Phosphatase 312 U/L (46-116); Anion Gap 10.5 mmol/L (3-11); BUN 12 mg/dL (7-18); Bilirubin, Total 0.2 mg/dL (0.2-1.0); C-Reactive Protein 2.41 mg/dL (0.0-0.3); CO2 26.5 mmol/L (21.0-32.0); CREATININE 0.5 mg/dL (0.55-1.02); Calcium 9.6 mg/dL (8.5-10.1); Chloride 102 mmol/L (98-107); Estimated GFR 130.12 (mL/min/1.73m2); Glucose 113 mg/dL (74-106); Potassium 3.8 mmol/L (3.5-5.1); Sodium 139 mmol/L (136-145); Total Protein 8.3 g/dL (6.4-8.2)
[2023-02-03 13:45] LABS: MRSA PCR Negative (Negative)
[2023-02-05 12:05] LABS: ESR (LRH) 87 mm/hr
== END 2023-02-03 18:19 | disposition home or self-care (01) ==
LOC: NCHCN 18:18
PROVIDERS: PCP Nurse Practitioner Family; Visit Provider Nurse Practitioner Family
DX: Z51.89 Encounter for other specified aftercare (principal); G80.9 Cerebral palsy, unspecified; Q67.5 Congenital deformity of spine; Z01.818 Encounter for other preprocedural examination; R53.83 Other fatigue
CPT/HCPCS: 80053; 85652; 87641; 85025; 85610; 85730; 86140; 87086

== ENCOUNTER 2023-02-27 15:34 | Outpatient (REF) | payer MEDICAID, SELFPAY ==
[2023-02-27 17:25] LABS: ESR 58 mm/hr (0-20)
[2023-02-27 17:26] LABS: Abs Immature Grans 0.03 10^3/uL (0.0-0.06); Absolute Basophil Count 0.04 10^3/uL (0.0-0.2); Absolute Eosinophil Count 0.11 10^3/uL (0.0-0.7); Absolute Lymphocyte Count 1.23 10^3/uL (1.2-3.4); Absolute Monocyte Count 0.33 10^3/uL (0.1-0.8); Absolute Neutrophil Count 2.46 10^3/uL (1.2-6.7); Eosinophils % 2.6; HCT 34.9 % (36.0-46.0); HGB 11.2 g/dL (11.2-15.7); Immature Grans % 0.7; Lymphocytes % 29.3; MCH 28.5 pg (27.0-33.0); MCHC 32.1 % (32.0-36.0); MCV 89 fL (80-95); MPV 9.3 fL (8.0-11.0); Monocytes % 7.9; Neutrophils % 58.5; Platelet Count 445 10^3/uL (130-400); RBC 3.93 10^6/uL (3.93-5.22); RDW 14.8 % (11.7-14.6); RDW-SD 47.7 fL
[2023-02-27 17:37] LABS: ALT 94 U/L (14-59); AST 68 U/L (15-37); Albumin 2.9 g/dL (3.4-5.0); Alkaline Phosphatase 327 U/L (46-116); Anion Gap 9.2 mmol/L (3-11); BUN 32 mg/dL (7-18); Bilirubin, Total 0.1 mg/dL (0.2-1.0); C-Reactive Protein 5.76 mg/dL (0.0-0.3); CO2 28.8 mmol/L (21.0-32.0); Calcium 9.3 mg/dL (8.5-10.1); Chloride 101 mmol/L (98-107); Creatine Kinase 10 U/L (26-192); Estimated GFR 78.21 (mL/min/1.73m2); Glucose 101 mg/dL (74-106); Potassium 3.6 mmol/L (3.5-5.1); Sodium 139 mmol/L (136-145); Total Protein 7.2 g/dL (6.4-8.2)
[2023-02-27 17:38] LABS: Bilirubin, Direct < 0.1 mg/dL (0.0-0.2)
== END 2023-02-27 15:35 | disposition home or self-care (01) ==
LOC: LBN 15:34
PROVIDERS: PCP Nurse Practitioner Family; Visit Provider Internal Medicine Pulmonary Disease
DX: G06.1 Intraspinal abscess and granuloma (principal); M46.26 Osteomyelitis of vertebra, lumbar region; B96.20 Unspecified Escherichia coli [E. coli] as the cause of diseases classified elsewhere; Z79.2 Long term (current) use of antibiotics; B34.1 Enterovirus infection, unspecified; T84.63XA Infection and inflammatory reaction due to internal fixation device of spine, initial encounter
CPT/HCPCS: 80053; 80076; 82550; 85652; 85025; 86140

== ENCOUNTER 2023-03-04 17:01 | Emergency (ER) | payer MEDICAID, SELFPAY ==
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
[2023-03-04 17:12] VITALS: BP 105/85; PULSE 95; RESP 20; TEMP 36.1
--- NOTE | 2023-03-04 17:30 | DI.RAD_ITS ---
Exam(s) XR PORTABLE CHEST AP EXAM: XR PORTABLE CHEST AP CLINICAL HISTORY: access picc. TECHNIQUE: 2D digital imaging was performed. COMPARISON: CR XR CHEST 2V PA LATERAL from 04/04/2021 FINDINGS: Single AP portable view. Mcnair rods noted. Heart size is upper normal. The mediastinum is not widened. No obvious infiltrates nor pleural effusions. No pulmonary edema. No pneumothorax. No obvious frac tures. IMPRESSION: No obvious acute pulmonary findings on this single AP portable view of the chest. DATA REPOSITORY: RADIATION DOSE DELIVERED:
[2023-03-04 19:34] VITALS: RESP 20
[2023-03-04 19:52] VITALS: BP 115/78; PULSE 95
[2023-03-04 20:00] VITALS: BP 114/82; PULSE 91; O2SAT 98
[2023-03-04 20:43] VITALS: BP 119/88; PULSE 102; RESP 22; TEMP 36.8; O2SAT 96
== END 2023-03-04 21:02 | disposition home or self-care (01) ==
PROVIDERS: Emergency Provider Emergency Medicine; PCP Nurse Practitioner Family
DX: T82.898A Other specified complication of vascular prosthetic devices, implants and grafts, initial encounter (principal)
CPT/HCPCS: 99283; 71045

== ENCOUNTER 2023-03-06 19:06 | Outpatient (REF) | payer MEDICAID, SELFPAY ==
[2023-03-06 19:37] LABS: Abs Immature Grans 0.03 10^3/uL (0.0-0.06); Absolute Basophil Count 0.06 10^3/uL (0.0-0.2); Absolute Eosinophil Count 0.11 10^3/uL (0.0-0.7); Absolute Neutrophil Count 3.61 10^3/uL (1.2-6.7); Eosinophils % 1.8; HCT 25.1 % (36.0-46.0); HGB 8.4 g/dL (11.2-15.7); Immature Grans % 0.5; Lymphocytes % 31.1; MCH 29.8 pg (27.0-33.0); MCHC 33.5 % (32.0-36.0); MCV 89 fL (80-95); MPV 9.7 fL (8.0-11.0); Monocytes % 6.5; Neutrophils % 59.1; Platelet Count 484 10^3/uL (130-400); RBC 2.82 10^6/uL (3.93-5.22); RDW 15.5 % (11.7-14.6); RDW-SD 50.4 fL; WBC 6.11 10^3/uL (4.4-10.8)
[2023-03-06 19:44] LABS: ALT 115 U/L (14-59); AST 54 U/L (15-37); Albumin 3.1 g/dL (3.4-5.0); Alkaline Phosphatase 343 U/L (46-116); BUN 15 mg/dL (7-18); Bilirubin, Total 0.2 mg/dL (0.2-1.0); C-Reactive Protein 2.79 mg/dL (0.0-0.3); CREATININE 0.6 mg/dL (0.55-1.02); Chloride 106 mmol/L (98-107); Creatine Kinase 34 U/L (26-192); Estimated GFR 124.53 (mL/min/1.73m2); Glucose 92 mg/dL (74-106); Potassium 4.2 mmol/L (3.5-5.1); Sodium 142 mmol/L (136-145); Total Protein 7.4 g/dL (6.4-8.2)
[2023-03-06 20:08] LABS: ESR 42 mm/hr (0-20)
== END 2023-03-06 19:07 | disposition home or self-care (01) ==
LOC: LBN 19:06
PROVIDERS: PCP Nurse Practitioner Family; Visit Provider Internal Medicine Pulmonary Disease
DX: G06.1 Intraspinal abscess and granuloma (principal); B96.20 Unspecified Escherichia coli [E. coli] as the cause of diseases classified elsewhere; M46.26 Osteomyelitis of vertebra, lumbar region; Z79.2 Long term (current) use of antibiotics; B34.1 Enterovirus infection, unspecified; T84.63XD Infection and inflammatory reaction due to internal fixation device of spine, subsequent encounter
CPT/HCPCS: 80053; 82550; 85652; 85025; 86140

== ENCOUNTER 2023-03-13 21:10 | Outpatient (REF) | payer MEDICAID, SELFPAY ==
[2023-03-13 13:17] LABS: Abs Immature Grans 0.01 10^3/uL (0.0-0.06); Absolute Basophil Count 0.03 10^3/uL (0.0-0.2); Absolute Eosinophil Count 0.13 10^3/uL (0.0-0.7); Absolute Lymphocyte Count 1.36 10^3/uL (1.2-3.4); Absolute Monocyte Count 0.28 10^3/uL (0.1-0.8); Absolute Neutrophil Count 2.35 10^3/uL (1.2-6.7); Basophils % 0.7; Eosinophils % 3.1; HCT 25.4 % (36.0-46.0); HGB 8.2 g/dL (11.2-15.7); Immature Grans % 0.2; Lymphocytes % 32.7; MCH 29.4 pg (27.0-33.0); MCHC 32.3 % (32.0-36.0); MCV 91 fL (80-95); MPV 10.2 fL (8.0-11.0); Monocytes % 6.7; Neutrophils % 56.6; Platelet Count 300 10^3/uL (130-400); RBC 2.79 10^6/uL (3.93-5.22); RDW 15.8 % (11.7-14.6); RDW-SD 51.6 fL; WBC 4.16 10^3/uL (4.4-10.8)
[2023-03-13 13:20] LABS: ALT 69 U/L (14-59); AST 37 U/L (15-37); Albumin 3.2 g/dL (3.4-5.0); Alkaline Phosphatase 276 U/L (46-116); Anion Gap 9.6 mmol/L (3-11); BUN 17 mg/dL (7-18); Bilirubin, Total 0.2 mg/dL (0.2-1.0); C-Reactive Protein 2.93 mg/dL (0.0-0.3); CO2 26.4 mmol/L (21.0-32.0); CREATININE 0.4 mg/dL (0.55-1.02); Calcium 9.6 mg/dL (8.5-10.1); Chloride 104 mmol/L (98-107); Creatine Kinase 19 U/L (26-192); ESR 37 mm/hr (0-20); Estimated GFR 137.31 (mL/min/1.73m2); Glucose 81 mg/dL (74-106); Potassium 4.2 mmol/L (3.5-5.1); Sodium 140 mmol/L (136-145); Total Protein 7.5 g/dL (6.4-8.2)
== END 2023-03-13 21:11 | disposition home or self-care (01) ==
LOC: LBN 21:10
PROVIDERS: PCP Nurse Practitioner Family; Visit Provider Internal Medicine Pulmonary Disease
DX: M46.26 Osteomyelitis of vertebra, lumbar region (principal); B96.20 Unspecified Escherichia coli [E. coli] as the cause of diseases classified elsewhere; B34.1 Enterovirus infection, unspecified; G06.1 Intraspinal abscess and granuloma; T84.63XD Infection and inflammatory reaction due to internal fixation device of spine, subsequent encounter; R70.0 Elevated erythrocyte sedimentation rate; R79.82 Elevated C-reactive protein (CRP)
CPT/HCPCS: 80053; 82550; 85652; 85025; 86140

== ENCOUNTER 2023-04-03 09:38 | Outpatient (REF) | payer MEDICAID, SELFPAY ==
[2023-04-03 11:12] LABS: Abs Immature Grans 0.02 10^3/uL (0.0-0.06); Absolute Basophil Count 0.03 10^3/uL (0.0-0.2); Absolute Eosinophil Count 0.09 10^3/uL (0.0-0.7); Absolute Lymphocyte Count 1.25 10^3/uL (1.2-3.4); Absolute Neutrophil Count 4.31 10^3/uL (1.2-6.7); Basophils % 0.5; Eosinophils % 1.5; HCT 29.6 % (36.0-46.0); HGB 9.6 g/dL (11.2-15.7); Immature Grans % 0.3; Lymphocytes % 20.8; MCH 27.9 pg (27.0-33.0); MCHC 32.4 % (32.0-36.0); MCV 86 fL (80-95); MPV 9.7 fL (8.0-11.0); Neutrophils % 71.9; Platelet Count 524 10^3/uL (130-400); RBC 3.44 10^6/uL (3.93-5.22); RDW 14.7 % (11.7-14.6); RDW-SD 46.6 fL
[2023-04-03 11:16] LABS: ESR 55 mm/hr (0-20)
[2023-04-03 11:25] LABS: ALT 89 U/L (14-59); AST 48 U/L (15-37); Albumin 3.3 g/dL (3.4-5.0); Alkaline Phosphatase 365 U/L (46-116); Anion Gap 12.5 mmol/L (3-11); BUN 13 mg/dL (7-18); Bilirubin, Direct 0.1 mg/dL (0.0-0.2); Bilirubin, Total 0.3 mg/dL (0.2-1.0); C-Reactive Protein 6.28 mg/dL (0.0-0.3); CO2 24.5 mmol/L (21.0-32.0); CREATININE 0.4 mg/dL (0.55-1.02); Calcium 9.2 mg/dL (8.5-10.1); Chloride 102 mmol/L (98-107); Creatine Kinase 45 U/L (26-192); Estimated GFR 137.31 (mL/min/1.73m2); Glucose 144 mg/dL (74-106); Potassium 3.8 mmol/L (3.5-5.1); Sodium 139 mmol/L (136-145); Total Protein 7.8 g/dL (6.4-8.2)
== END 2023-04-03 09:39 | disposition home or self-care (01) ==
LOC: LBN 09:38
PROVIDERS: PCP Nurse Practitioner Family; Visit Provider Internal Medicine Pulmonary Disease
DX: G06.1 Intraspinal abscess and granuloma (principal); Z79.2 Long term (current) use of antibiotics; B34.1 Enterovirus infection, unspecified; T84.63XD Infection and inflammatory reaction due to internal fixation device of spine, subsequent encounter
CPT/HCPCS: 80053; 80076; 82550; 85652; 85025; 86140

== ENCOUNTER 2023-04-10 09:36 | Outpatient (REF) | payer MEDICAID, SELFPAY ==
[2023-04-10 11:11] LABS: ALT 137 U/L (14-59); AST 77 U/L (15-37); Alkaline Phosphatase 414 U/L (46-116); Anion Gap 11.3 mmol/L (3-11); BUN 7 mg/dL (7-18); Bilirubin, Total 0.2 mg/dL (0.2-1.0); C-Reactive Protein 9.51 mg/dL (0.0-0.3); CO2 24.7 mmol/L (21.0-32.0); CREATININE 0.3 mg/dL (0.55-1.02); Calcium 9.3 mg/dL (8.5-10.1); Chloride 102 mmol/L (98-107); Estimated GFR 147.17 (mL/min/1.73m2); Glucose 90 mg/dL (74-106); Potassium 4.3 mmol/L (3.5-5.1); Sodium 138 mmol/L (136-145); Total Protein 7.5 g/dL (6.4-8.2)
== END 2023-04-10 09:37 | disposition home or self-care (01) ==
LOC: LBN 09:36
PROVIDERS: PCP Nurse Practitioner Family; Visit Provider Internal Medicine Pulmonary Disease
DX: M46.26 Osteomyelitis of vertebra, lumbar region (principal); R79.82 Elevated C-reactive protein (CRP); R79.89 Other specified abnormal findings of blood chemistry
CPT/HCPCS: 80053; 85652; 86140

== ENCOUNTER 2023-04-24 16:10 | Outpatient (REF) | payer MEDICAID, SELFPAY ==
[2023-04-24 14:30] LABS: ESR 53 mm/hr (0-20)
[2023-04-24 14:32] LABS: Absolute Basophil Count 0.03 10^3/uL (0.0-0.2); Absolute Eosinophil Count 0.06 10^3/uL (0.0-0.7); Absolute Monocyte Count 0.26 10^3/uL (0.1-0.8); Absolute Neutrophil Count 2.66 10^3/uL (1.2-6.7); Basophils % 0.7; Eosinophils % 1.5; HCT 31.3 % (36.0-46.0); HGB 9.6 g/dL (11.2-15.7); Lymphocytes % 24.9; MCH 25.5 pg (27.0-33.0); MCHC 30.7 % (32.0-36.0); MCV 83 fL (80-95); MPV 9.9 fL (8.0-11.0); Monocytes % 6.5; Neutrophils % 66.4; Platelet Count 423 10^3/uL (130-400); RBC 3.76 10^6/uL (3.93-5.22); RDW 16.9 % (11.7-14.6); RDW-SD 50.4 fL; WBC 4.01 10^3/uL (4.4-10.8)
[2023-04-24 14:54] LABS: ALT 34 U/L (14-59); AST 30 U/L (15-37); Albumin 3.2 g/dL (3.4-5.0); Alkaline Phosphatase 256 U/L (46-116); Anion Gap 10.2 mmol/L (3-11); BUN 11 mg/dL (7-18); Bilirubin, Total 0.1 mg/dL (0.2-1.0); C-Reactive Protein 5.46 mg/dL (0.0-0.3); CO2 27.8 mmol/L (21.0-32.0); CREATININE 0.4 mg/dL (0.55-1.02); Calcium 9.5 mg/dL (8.5-10.1); Chloride 102 mmol/L (98-107); Estimated GFR 137.31 (mL/min/1.73m2); Glucose 97 mg/dL (74-106); Potassium 3.8 mmol/L (3.5-5.1); Sodium 140 mmol/L (136-145); Total Protein 8.7 g/dL (6.4-8.2)
[2023-04-24 22:38] LABS: Hepatitis A Antibody IgM Negative (Negative); Hepatitis B Core Antibody Negative (Negative); Hepatitis B surface Ag Negative (Negative); Hepatitis C Ab w Rflx HCV PCR Negative (Negative)
== END 2023-04-24 16:11 | disposition home or self-care (01) ==
LOC: NCHCN 16:10
PROVIDERS: PCP Nurse Practitioner Family; Visit Provider Nurse Practitioner Family
DX: M86.9 Osteomyelitis, unspecified (principal); R74.9 Abnormal serum enzyme level, unspecified
CPT/HCPCS: 80053; 85652; 86704; 86709; 86803; 87340; 85025; 86140

== ENCOUNTER 2023-05-14 12:18 | Outpatient (REF) | payer MEDICAID, SELFPAY ==
[2023-05-14 12:52] LABS: Abs Immature Grans 0.01 10^3/uL (0.0-0.06); Absolute Basophil Count 0.02 10^3/uL (0.0-0.2); Absolute Eosinophil Count 0.07 10^3/uL (0.0-0.7); Absolute Lymphocyte Count 1.32 10^3/uL (1.2-3.4); Absolute Monocyte Count 0.19 10^3/uL (0.1-0.8); Basophils % 0.6; Eosinophils % 1.9; HCT 34.3 % (36.0-46.0); HGB 10.4 g/dL (11.2-15.7); Immature Grans % 0.3; Lymphocytes % 36.6; MCH 24.4 pg (27.0-33.0); MCHC 30.3 % (32.0-36.0); MCV 81 fL (80-95); MPV 9.6 fL (8.0-11.0); Monocytes % 5.3; Neutrophils % 55.3; Platelet Count 351 10^3/uL (130-400); RBC 4.26 10^6/uL (3.93-5.22); RDW 17.8 % (11.7-14.6); RDW-SD 51.3 fL; WBC 3.61 10^3/uL (4.4-10.8)
[2023-05-14 12:53] LABS: ESR 67 mm/hr (0-20)
[2023-05-14 13:04] LABS: ALT 64 U/L (14-59); AST 35 U/L (15-37); Albumin 3.3 g/dL (3.4-5.0); Alkaline Phosphatase 283 U/L (46-116); Anion Gap 10.6 mmol/L (3-11); BUN 13 mg/dL (7-18); Bilirubin, Total 0.2 mg/dL (0.2-1.0); CO2 27.4 mmol/L (21.0-32.0); CREATININE 0.4 mg/dL (0.55-1.02); Calcium 9.4 mg/dL (8.5-10.1); Chloride 102 mmol/L (98-107); Creatine Kinase 21 U/L (26-192); Estimated GFR 137.31 (mL/min/1.73m2); Glucose 90 mg/dL (74-106); Potassium 4.1 mmol/L (3.5-5.1); Sodium 140 mmol/L (136-145); Total Protein 7.8 g/dL (6.4-8.2)
== END 2023-05-14 12:19 | disposition home or self-care (01) ==
LOC: LBN 12:18
PROVIDERS: PCP Nurse Practitioner Family
DX: G06.1 Intraspinal abscess and granuloma (principal); M46.26 Osteomyelitis of vertebra, lumbar region; T84.63XD Infection and inflammatory reaction due to internal fixation device of spine, subsequent encounter
CPT/HCPCS: 80053; 82550; 85652; 85025; 86140

== ENCOUNTER → 2023-06-10 00:32 | Outpatient (CLI) | payer MEDICAID, SELFPAY ==
--- NOTE | 2023-06-10 | DI.RAD_ITS ---
Exam(s) XR HIP PELVIS ADULT BL EXAM: XR HIP PELVIS ADULT BL CLINICAL HISTORY: CEREBRAL PALSY,CHRONIC OSTEOMYELITIS,EVAL PELVIC HARDWARE. TECHNIQUE: 2D digital imaging was performed of the pelvis and bilateral hips. Three images were obt ained. AP pelvis and bilateral lateral views of both hips were obtained. COMPARISON: CR XR HIP PELVIS ADULT BL from 04/04/2021 FINDINGS: BONES: No acute fracture is present. No bony destructive lesion is seen. The distal aspects of spinal rods are seen in the lower lumbar spine and sacrum. The bones are osteopenic. No acute fracture is identified. JOINTS: Chronic deformities involving the acetabuli bilaterally and fragmentation of both humeral hea ds are noted. Chronic dislocations of the hips are noted. SOFT TISSUE: There is a large amount of stool in the rectum. IMPRESSION: 1. No acute abnormality. 2. Chronic deformities involving the pelvis and hips bilaterally. DATA REPOSITORY: RADIATION DOSE DELIVERED:
== END ==
PROVIDERS: PCP Nurse Practitioner Family; Visit Provider Neurological Surgery
DX: Q67.5 Congenital deformity of spine (principal)
CPT/HCPCS: 73521

== ENCOUNTER → 2023-06-10 00:33 | Outpatient (CLI) | payer MEDICAID, SELFPAY ==
--- NOTE | 2023-06-10 | DI.RAD_ITS ---
Exam(s) XR LUMBAR SPINE AP, LAT EXAM: XR LUMBAR SPINE AP, LAT CLINICAL HISTORY: CEREBRAL PALSY,G80.9,CONGENITAL DEFORMITY OF SPINE,q67.5,CHRONIC OSTEOMYELI. TECHNIQUE: 2D digital imaging was performed of the lumbar spine. Two images were obtained. AP and cross-table lateral views were obtained. COMPARISON: CR XR CHEST 2V PA LATERAL from 04/04/2021 CR,XR XR LUMBAR SPINE COMPLETE from 06/17/2022 FINDINGS: The cross-table lateral image is suboptimal due to patient positioning. There is again seen a marked right convex thoracolumbar curvature centered at L1. There are spinal r ods extending the entire length of the visualized thoracic and lumbosacral spine. The rods appear in tact. No acute fracture is seen in the lumbar spine, within the limits of the examination. The bone s appear osteopenic. Chronic deformity is seen of the hips bilaterally. This is not completely imag ed on the examination. There is a moderate amount of stool in the rectum. IMPRESSION: 1. Examination is limited due to the patient positioning and scoliosis. 2. Posterior spinal rods within a right convex thoracolumbar scoliosis. 3. No definite acute fracture is identified. DATA REPOSITORY: RADIATION DOSE DELIVERED:
== END ==
PROVIDERS: PCP Nurse Practitioner Family; Visit Provider Neurological Surgery
DX: Q67.5 Congenital deformity of spine
CPT/HCPCS: 72100

== ENCOUNTER 2023-06-17 13:23 | Outpatient (REF) | payer MEDICAID, SELFPAY ==
[2023-06-17 13:41] LABS: Abs Immature Grans 0.01 10^3/uL (0.0-0.06); Absolute Basophil Count 0.03 10^3/uL (0.0-0.2); Absolute Eosinophil Count 0.06 10^3/uL (0.0-0.7); Absolute Lymphocyte Count 1.34 10^3/uL (1.2-3.4); Absolute Monocyte Count 0.31 10^3/uL (0.1-0.8); Absolute Neutrophil Count 2.43 10^3/uL (1.2-6.7); Basophils % 0.7; Eosinophils % 1.4; HCT 38.4 % (36.0-46.0); HGB 12.1 g/dL (11.2-15.7); Immature Grans % 0.2; Lymphocytes % 32.1; MCH 24.7 pg (27.0-33.0); MCHC 31.5 % (32.0-36.0); MCV 78 fL (80-95); MPV 10.1 fL (8.0-11.0); Monocytes % 7.4; Neutrophils % 58.2; Platelet Count 325 10^3/uL (130-400); RDW 20.3 % (11.7-14.6); RDW-SD 56.8 fL; WBC 4.17 10^3/uL (4.4-10.8)
[2023-06-17 13:55] LABS: Anisocytosis 1+; Diff Comment RBC Morph Reviewed; Microcytosis 1+; Poikilocytes 1+
== END 2023-06-17 13:24 | disposition home or self-care (01) ==
LOC: LBN 13:23
PROVIDERS: PCP Nurse Practitioner Family; Visit Provider Nurse Practitioner Family
DX: K59.09 Other constipation (principal)
CPT/HCPCS: 85025

== ENCOUNTER 2023-07-01 13:38 | Outpatient (REF) | payer MEDICAID, SELFPAY ==
[2023-07-01 16:06] LABS: ALT 70 U/L (14-59); AST 27 U/L (15-37); Albumin 3.6 g/dL (3.4-5.0); Alkaline Phosphatase 233 U/L (46-116); Anion Gap 11.6 mmol/L (3-11); BUN 13 mg/dL (7-18); Bilirubin, Total 0.1 mg/dL (0.2-1.0); CO2 26.4 mmol/L (21.0-32.0); CREATININE 0.4 mg/dL (0.55-1.02); Calcium 9.5 mg/dL (8.5-10.1); Chloride 104 mmol/L (98-107); Estimated GFR 136.46 (mL/min/1.73m2); Glucose 102 mg/dL (74-106); Sodium 142 mmol/L (136-145); Total Protein 7.9 g/dL (6.4-8.2)
[2023-07-01 16:32] LABS: Iron 42 ug/dL (50-170); Total Iron Binding Capacity 403 ug/dL (250-450); Transferrin Sat 10 % (15-50)
[2023-07-02 10:27] LABS: Tissue Transglutaminase IgA <4.0 CU (<20.0)
[2023-07-02 11:44] LABS: IgA 284 mg/dL (85-499); IgG 1631 mg/dL (610-1616)
== END 2023-07-01 13:39 | disposition home or self-care (01) ==
LOC: LBN 13:38
PROVIDERS: PCP Nurse Practitioner Family; Visit Provider Nurse Practitioner Family
DX: K59.09 Other constipation (principal); R79.89 Other specified abnormal findings of blood chemistry
CPT/HCPCS: 80053; 82784; 83540; 83550

== ENCOUNTER 2023-07-29 12:10 | Outpatient (REF) | payer MEDICAID, SELFPAY ==
[2023-07-29 13:28] LABS: Vitamin D 25 Total 39.4 ng/mL (30-100)
== END 2023-07-29 12:11 | disposition home or self-care (01) ==
LOC: NCHCN 12:10
PROVIDERS: PCP Nurse Practitioner Family; Visit Provider Nurse Practitioner Family
DX: E55.9 Vitamin D deficiency, unspecified (principal)
CPT/HCPCS: 82306

== ENCOUNTER 2023-10-28 14:53 | Outpatient (REF) | payer MEDICAID, SELFPAY ==
[2023-10-28 13:04] LABS: Abs Immature Grans 0.03 10^3/uL (0.0-0.06); Absolute Basophil Count 0.03 10^3/uL (0.0-0.2); Absolute Eosinophil Count 0.11 10^3/uL (0.0-0.7); Absolute Lymphocyte Count 1.52 10^3/uL (1.2-3.4); Absolute Monocyte Count 0.39 10^3/uL (0.1-0.8); Absolute Neutrophil Count 5.16 10^3/uL (1.2-6.7); Basophils % 0.4 %; Eosinophils % 1.5 %; HCT 38.8 % (36.0-46.0); HGB 12.5 g/dL (11.2-15.7); Immature Grans % 0.4 %; MCH 28.3 pg (27.0-33.0); MCHC 32.2 % (32.0-36.0); MCV 88 fL (80-95); MPV 9.8 fL (8.0-11.0); Monocytes % 5.4 %; Neutrophils % 71.3 %; Platelet Count 482 10^3/uL (130-400); RBC 4.41 10^6/uL (3.93-5.22); RDW 14.3 % (11.7-14.6); RDW-SD 46.1 fL; WBC 7.24 10^3/uL (4.4-10.8)
[2023-10-28 13:24] LABS: ALT 54 U/L (14-59); AST 22 U/L (15-37); Alkaline Phosphatase 263 U/L (46-116); Anion Gap 8.8 mmol/L (3-11); BUN 8 mg/dL (7-18); Bilirubin, Total 0.27 mg/dL (0.2-1.0); CO2 29.2 mmol/L (21.0-32.0); CREATININE 0.4 mg/dL (0.55-1.02); Calcium 9.1 mg/dL (8.5-10.1); Chloride 103 mmol/L (98-107); Estimated GFR 136.46 (mL/min/1.73m2); Glucose 98 mg/dL (74-106); Potassium 4.3 mmol/L (3.5-5.1); Sodium 141 mmol/L (136-145); Total Protein 7.9 g/dL (6.4-8.2)
== END 2023-10-28 14:54 | disposition home or self-care (01) ==
LOC: NCHCN 14:53
PROVIDERS: PCP Nurse Practitioner Family; Visit Provider Nurse Practitioner Family
DX: R50.9 Fever, unspecified (principal); R79.82 Elevated C-reactive protein (CRP)
CPT/HCPCS: 80053; 85025; 86140

== ENCOUNTER 2023-11-09 18:09 | Outpatient (REF) | payer MEDICAID, SELFPAY ==
[2023-11-09 17:50] LABS: Abs Immature Grans 0.01 10^3/uL (0.0-0.06); Absolute Basophil Count 0.04 10^3/uL (0.0-0.2); Absolute Eosinophil Count 0.14 10^3/uL (0.0-0.7); Absolute Lymphocyte Count 2.02 10^3/uL (1.2-3.4); Absolute Monocyte Count 0.37 10^3/uL (0.1-0.8); Absolute Neutrophil Count 3.93 10^3/uL (1.2-6.7); Basophils % 0.6 %; Eosinophils % 2.2 %; HCT 36.7 % (36.0-46.0); HGB 11.8 g/dL (11.2-15.7); Immature Grans % 0.2 %; MCHC 32.2 % (32.0-36.0); MCV 87 fL (80-95); MPV 9.5 fL (8.0-11.0); Monocytes % 5.7 %; Neutrophils % 60.3 %; Platelet Count 430 10^3/uL (130-400); RBC 4.22 10^6/uL (3.93-5.22); RDW 14.5 % (11.7-14.6); RDW-SD 46.3 fL; WBC 6.51 10^3/uL (4.4-10.8)
--- OUTSIDE RECORDS SUMMARY | 2023-11-09 18:10 | XMS_ITS | Encounter Summary ---
Author Organization [facility] Address [facility] [place] [address] Care Team Providers Care Geothermal Production Manager Name Role Phone Lorna Bal APRN Primary Care Provider [phone] Encounter Details Date Type Department Care Team (Late st Contact Info) Description 11/09/2023 Telephone [place] [id number] Yas Tracy, RN Social History Tobacco Use Types Packs/Day Years Used Date Smoking Tobacco: Never Passive Smoke Exposure: Never Smokeless Tobacco: Never Comments:NO SMOKERS IN THE H OME Alcohol Use Standard Drinks/Week Comments No 0 (1 standard drink = 0.6 oz pur e alcohol) [facility] Utilities Answer Date Recorded In the past 12 months has e electric, gas, oil, or water [employer] threatened to shut off services in your home? No 10/29/2023 Hunger Vital Sign Answer Date Recorded Within the past 12 months, y ou worried that your food would run out before you got the money to buy more. Never true 10/29/19 24 Within the past 12 months, t he food you bought just didn't last and you didn't have money to get more. Never true 10/29/2023 PRAPARE - Transportation Answer Date Re corded In the past 12 months, has l ack of transportation kept you from medical appointments or from getting medications? No 07/2023 In the past 12 months, has l ack of transportation kept you from meetings, work, or from getting things needed for daily living? No 10/29/2023 Housing Stability Vital Sign Answer Eric e Recorded In the last 12 months, was t here a time when you were not able to pay the mortgage or rent on time? No 10/29/2023 In the past 12 months, how m any times have you moved where you were living? 0 10/29/2023 At any time in the past 12 m [facility], were you homeless or living in a nursing home (including now)? No 10/29/2023 IPV Inpatient Questions Answer Date Recorded Does Anyone Try to Keep You From Having Contact with Others or Doing Things Outside Your Home? no 10/29/2023 Feels Threatened by Someone no 07/2023 Feels Unsafe at Home or Work/School yes 10/29/2023 Physical Signs of Abuse Present no 10/29/2023 Sex and Gender Information Value Date Recorded Sex Assigned at Not on file Gender Identity Not on file Sexual Orientation Not on file documented as of this encounter Miscellaneous Notes * Telephone Encounter - Yas Tracy RN - 11/09/2023 4:17 PM EDT [facility] nurse reporting pt PICC has migrated 2CM out. Report OK as long as it isn't more than 3 CM. documented in this encounter Plan of Treatment Upcoming Encounters Date Type Department Care Team (Late st Contact Info) Description 11/19/2023 2:30 PM EDT TH Visit (TeleHealth) Infectious Disease at [facility] [place] [phone] Lilli Joy APRN [facility] [place] [address] 11/30/2023 12:50 PM EDT Appointment Radiology at [facility] [place] [address] 12/03/2023 12:30 PM EDT Office [place] [phone] Hollie Ambriz MD [facility] [place] [address] documented as of this encounter Visit Diagnoses Not on filedocumented in this encounter Care Teams Geothermal Production Manager Relationship Specialty Start Date End Date Lorna Bal APRN [address] [place] [address] PCP - General Family Medicine 05/27/18 documented as of this encounter
--- OUTSIDE RECORDS SUMMARY | 2023-11-09 18:10 | XMS_ITS | Data Portability ---
Author Organization [facility] Address [address] [facility] [address] Assessment Encounter Date Assessment Date Assessment LastModified by Organization Details LastModified Time 04/24/2023 04/24/2023 The total time devoted to today's encounter, including both the inqm-vc-mhbo time with the patient and/or family/caregi aleta and avu-qksx-hs-f scar time I personally spent is 48 minutes. Not available 04/24/2023 09:38:15 Plan of Treatment Reminders Order Date Submit Date Provider Last Modified By Organization Details Last Modified Time Details Appointments Follow Up 30 2023 10:00A M LORNA MARTINEZ Not available Not available Not available Lab hepatitis panel (A+B+C), acute, serum 2022 023 [facility] (Registration ), [address] [place] [address] [place], [address], 04/25/2023 11:53:33 CMP, serum or plasma 2022 023 [facility] (Registration ), [address] [place] [address] [place], [address], 04/24/2023 14:57:58 CBC w/ auto diff 2022 023 [facility] (Registration ), [address] [place] [address] [place], [address], 04/24/2023 14:43:55 C-reactiv e protein, quantitat brissa, serum or plasma 2022 [email or web address] [facility] (Registration ), [address] [place] [address] , [place], [address], 05/01/2023 11:12:20 ESR (erythroc yte sedimenta tion rate), blood 2022 [email or web address] [facility] (Registration ), [address] [place] [address] , [place], [address], 05/01/2023 11:12:20 Referral orthopedi c surgeon referral - 2nd time sending for spasms to the right wrist/ thumb. 2023 024 [facility], [address], [place], [address], 08/24/2023 10:27:47 Procedures None recorded. Surgeries None recorded. Imaging None recorded. Medication Orders Ensure Active High Protein oral liquid 2022 023 [facility] [place], [address], 04/24/2023 09:17:52 Patient TargetsNo targets recorded. Patient Instructions Encounter Date Encounter Id Patient Instructions Last Modified By Organization Details Last Modified Time 04/24/2023 [id number] - Call Dr Augustin at [facility] - Call infectious disease at [facility] Work on improving bowels that we discussed Not available 04/24/2023 09:34:29 Reason for Referral Orthopedic Surgeon Referral for Tetraplegia 2nd time sending for spasms to the right wrist/ thumb. 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 hand specialist for right thumb pain and contracture of hand Referring Physician: Lorna Martinez, Family Medicine, Encounter Date: 07/28/2023 Results Created Date Observation Date Name Description Value Unit Range Abnormal Flag LastModifiedBy Organization Detail LastModifiedTime 04/03/2004/03/2023 COMPL ETE BLOOD COUNT W/DIF F WBC 6.00 10_3/ uL 4.4-10 .8 normal Not Available [address] [place], [address] 04/03/2023 11:18:43 04/03/20 23 04/03/2023 COMPL ETE BLOOD COUNT W/DIF F RBC 3.44 10_6/ uL 3.93-5 .22 low Not Available [address] [place], [address] 04/03/2023 11:18:43 04/03/20 23 04/03/2023 COMPL ETE BLOOD COUNT W/DIF F HGB 9.6 g/dL 11.2-1 5.7 low Not Available [address] [place], [address] 04/03/2023 11:18:43 04/03/20 23 04/03/2023 COMPL ETE BLOOD COUNT W/DIF F HCT 29.6 % 36.0-4 6.0 low Not Available [address] [place], [address] 04/03/2023 11:18:43 04/03/20 23 04/03/2023 COMPL ETE BLOOD COUNT W/DIF F MCV 86 fL 80-95 normal Not Available [address] [place], [address] 04/03/2023 11:18:43 04/03/20 23 04/03/2023 COMPL ETE BLOOD COUNT W/DIF F MCH 27.9 pg 27.0-3 3.0 normal Not Available [address] [place], [address] 04/03/2023 11:18:43 04/03/20 23 04/03/2023 COMPL ETE BLOOD COUNT W/DIF F MCHC 32.4 % 32.0-3 6.0 normal Not Available [address] [place], [address] 04/03/2023 11:18:43 04/03/20 23 04/03/2023 COMPL ETE BLOOD COUNT W/DIF F RDW 14.7 % 11.7-1 4.6 high Not Available [address] [place], [address] 04/03/2023 11:18:43 04/03/20 23 04/03/2023 COMPL ETE BLOOD COUNT W/DIF F platelet count 524 10_3/ uL 130-40 0 high Not Available [address] [place], [address] 04/03/2023 11:18:43 04/03/20 23 04/03/2023 COMPL ETE BLOOD COUNT W/DIF F MPV 9.7 fL 8.0-11 .0 normal Not Available [address] [place], [address] 04/03/2023 11:18:43 04/03/2004/03/2023 COMPL ETE BLOOD COUNT W/DIF F neutrophils % 71.9 Not Available [address] [place], [address] 04/03/2023 11:18:43 04/03/20 23 04/03/2023 COMPL ETE BLOOD COUNT W/DIF F lymphocytes % 20.8 Not Available [address] [place], [address] 04/03/2023 11:18:43 04/03/20 23 04/03/2023 COMPL ETE BLOOD COUNT W/DIF F monocytes % 5.0 Not Available [address] [place], [address] 04/03/2023 11:18:43 04/03/20 23 04/03/2023 COMPL ETE BLOOD COUNT W/DIF F eosinophils % 1.5 Not Available [address] [place], [address] 04/03/2023 11:18:43 04/03/20 23 04/03/2023 COMPL ETE BLOOD COUNT W/DIF F basophils % 0.5 Not Available [address] [place], [address] 04/03/2023 11:18:43 04/03/20 23 04/03/2023 COMPL ETE BLOOD COUNT W/DIF F immature grans % 0.3 Not Available [address] [place], [address] 04/03/2023 11:18:43 04/03/20 23 04/03/2023 COMPL ETE BLOOD COUNT W/DIF F nucleated RBC 0.0 % 0.0-0. 3 normal Not Available [address] [place], [address] 04/03/2023 11:18:43 04/03/20 23 04/03/2023 COMPL ETE BLOOD COUNT W/DIF F absolute neutrophil count 4.31 10_3/ uL 1.2-6. 7 normal Not Available [address] [place], [address] 04/03/2023 11:18:43 04/03/20 23 04/03/2023 COMPL ETE BLOOD COUNT W/DIF F absolute lymphocyte count 1.25 10_3/ uL 1.2-3. 4 normal Not Available [address] [place], [address] 04/03/2023 11:18:43 04/03/20 23 04/03/2023 COMPL ETE BLOOD COUNT W/DIF F absolute monocyte count 0.30 10_3/ uL 0.1-0. 8 normal Not Available [address] [place], [address] 04/03/2023 11:18:43 04/03/20 23 04/03/2023 COMPL ETE BLOOD COUNT W/DIF F absolute eosinophil count 0.09 10_3/ uL 0.0-0. 7 normal Not Available [address] [place], [address] 04/03/2023 11:18:43 04/03/20 23 04/03/2023 COMPL ETE BLOOD COUNT W/DIF F absolute basophil count 0.03 10_3/ uL 0.0-0. 2 normal Not Available [address] [place], [address] 04/03/2023 11:18:43 04/03/20 23 04/03/2023 LIVER PANEL total protein 7.8 g/dL 6.4-8. 2 normal Not Available [address] [place], [address] 04/03/2023 11:30:47 04/03/2004/03/2023 LIVER PANEL albumin 3.3 g/dL 3.4-5. 0 low Not Available [address] [place], [address] 04/03/2023 11:30:47 04/03/20 23 04/03/2023 LIVER PANEL bilirubin, total 0.3 mg/dL 0.2-1. 0 normal Not Available [address] [place], [address] 04/03/2023 11:30:47 04/03/2004/03/2023 LIVER PANEL alk phos 365 U/L 46-116 high Not Available [address] [place], [address] 04/03/2023 11:30:47 04/03/2004/03/2023 LIVER PANEL AST 48 U/L 15-37 high Not Available [address] [place], [address] 04/03/2023 11:30:47 04/03/2004/03/2023 LIVER PANEL ALT 89 U/L 14-59 high Not Available [address] [place], [address] 04/03/2023 11:30:47 04/03/20 23 04/03/2023 LIVER PANEL bilirubin, conjugated 0.1 mg/dL 0.0-0. 2 normal Not Available [address] [place], [address] 04/03/2023 11:30:47 04/03/20 23 04/03/2023 COMPR EHENS BRISSA METAB OLIC PANEL calcium 9.2 mg/dL 8.5-10 .1 normal Not Available [address] [place], [address] 04/03/2023 11:30:47 04/03/20 23 04/03/2023 COMPR EHENS BRISSA METAB OLIC PANEL glucose 144 mg/dL 74-106 high Not Available [facility] [address] [place], [address] 04/03/2023 11:30:47 04/03/20 23 04/03/2023 COMPR EHENS BRISSA METAB OLIC PANEL BUN 13 mg/dL 7-18 normal Not Available [address] [place], [address] 04/03/2023 11:30:47 04/03/20 23 04/03/2023 COMPR EHENS BRISSA METAB OLIC PANEL creatinine 0.4 mg/dL 0.55-1 .02 low Not Available [address] [place], [address] 04/03/2023 11:30:47 04/03/20 23 04/03/2023 COMPR EHENS BRISSA METAB OLIC PANEL estimated GFR 137.31 mL/min /1.73m 2 Not Available [address] [place], [address] 04/03/2023 11:30:47 04/03/20 23 04/03/2023 COMPR EHENS BRISSA METAB OLIC PANEL sodium 139 mmol/ L 136-14 5 normal Not Available [address] [place], [address] 04/03/2023 11:30:47 04/03/20 23 04/03/2023 COMPR EHENS BRISSA METAB OLIC PANEL potassium 3.8 mmol/ L 3.5-5. 1 normal Not Available [address] [place], [address] 04/03/2023 11:30:47 04/03/20 23 04/03/2023 COMPR EHENS BRISSA METAB OLIC PANEL chloride 102 mmol/ L 98-107 normal Not Available [address] [place], [address] 04/03/2023 11:30:47 04/03/20 23 04/03/2023 COMPR EHENS BRISSA METAB OLIC PANEL CO2 24.5 mmol/ L 21.0-3 2.0 normal Not Available [address] [place], [address] 04/03/2023 11:30:47 04/03/20 23 04/03/2023 COMPR EHENS BRISSA METAB OLIC PANEL anion gap 12.5 mmol/ L 3-11 high Not Available [address] [place], [address] 04/03/2023 11:30:47 04/03/20 23 04/03/2023 CREAT INE KINAS E creatine kinase 45 U/L 26-192 normal Not Available [address] [place], [address] 04/03/2023 11:30:48 04/03/20 23 04/03/2023 C-MARIELOS CTIVE PROTE IN C-reactive protein 6.28 mg/dL 0.0-0. 3 high Not Available [address] [place], [address] 04/03/2023 11:30:48 04/03/20 23 04/03/2023 ESR ESR 55 mm/HR 0-20 high Not Available [address] [place], [address] 04/03/2023 11:37:48 04/10/20 23 04/10/2023 COMPR EHENS BRISSA METAB OLIC PANEL calcium 9.3 mg/dL 8.5-10 .1 normal Not Available [address] [place], [address] 04/10/2023 12:25:49 04/10/20 23 04/10/2023 COMPR EHENS BRISSA METAB OLIC PANEL glucose 90 mg/dL 74-106 normal Not Available [address] [place], [address] 04/10/2023 12:25:49 04/10/20 23 04/10/2023 COMPR EHENS BRISSA METAB OLIC PANEL BUN 7 mg/dL 7-18 normal Not Available [address] [place], [address] 04/10/2023 12:25:49 04/10/20 23 04/10/2023 COMPR EHENS BRISSA METAB OLIC PANEL creatinine 0.3 mg/dL 0.55-1 .02 low Not Available [address] [place], [address] 04/10/2023 12:25:49 04/10/20 04/10/2023 COMPR EHENS BRISSA METAB OLIC PANEL estimated GFR 147.17 mL/min /1.73m 2 Not Available [address] [place], [address] 04/10/2023 12:25:49 04/10/20 23 04/10/2023 COMPR EHENS BRISSA METAB OLIC PANEL total protein 7.5 g/dL 6.4-8. 2 normal Not Available [address] [place], [address] 04/10/2023 12:25:49 04/10/20 23 04/10/2023 COMPR EHENS BRISSA METAB OLIC PANEL albumin 3.0 g/dL 3.4-5. 0 low Not Available [address] [place], [address] 04/10/2023 12:25:49 04/10/20 23 04/10/2023 COMPR EHENS BRISSA METAB OLIC PANEL bilirubin, total 0.2 mg/dL 0.2-1. 0 normal Not Available [address] [place], [address] 04/10/2023 12:25:49 04/10/20 23 04/10/2023 COMPR EHENS BRISSA METAB OLIC PANEL alk phos 414 U/L 46-116 high Not Available [address] [place], [address] 04/10/2023 12:25:49 04/10/20 23 04/10/2023 COMPR EHENS BRISSA METAB OLIC PANEL sodium 138 mmol/ L 136-14 5 normal Not Available [address] [place], [address] 04/10/2023 12:25:49 04/10/20 23 04/10/2023 COMPR EHENS BRISSA METAB OLIC PANEL potassium 4.3 mmol/ L 3.5-5. 1 normal Not Available [address] [place], [address] 04/10/2023 12:25:49 04/10/20 23 04/10/2023 COMPR EHENS BRISSA METAB OLIC PANEL chloride 102 mmol/ L 98-107 normal Not Available [address] [place], [address] 04/10/2023 12:25:49 04/10/20 23 04/10/2023 COMPR EHENS BRISSA METAB OLIC PANEL CO2 24.7 mmol/ L 21.0-3 2.0 normal Not Available [address] [place], [address] 04/10/2023 12:25:49 04/10/20 23 04/10/2023 COMPR EHENS BRISSA METAB OLIC PANEL anion gap 11.3 mmol/ L 3-11 high Not Available [address] [place], [address] 04/10/2023 12:25:49 04/10/2004/10/2023 COMPR EHENS BRISSA METAB OLIC PANEL AST 77 U/L 15-37 high Not Available [address] [place], [address] 04/10/2023 12:25:49 04/10/20 23 04/10/2023 COMPR EHENS BRISSA METAB OLIC PANEL ALT 137 U/L 14-59 high Not Available [address] [place], [address] 04/10/2023 12:25:49 04/10/20 23 04/10/2023 C-MARIELOS CTIVE PROTE IN C-reactive protein 9.51 mg/dL 0.0-0. 3 high Not Available [address] [place], [address] 04/10/2023 12:25:50 04/10/20 23 04/10/2023 C-MARIELOS CTIVE PROTE IN C-reactive protein 9.51 mg/dL 0.0-0. 3 high Not Available [address] [place], [address] 04/12/2023 01:17:45 04/24/2004/24/2023 ESR ESR 53 mm/HR 0-20 high Not Available [address] [place], [address] 04/24/2023 14:34:51 04/24/2004/24/2023 COMPL ETE BLOOD COUNT W/DIF F WBC 4.01 10_3/ uL 4.4-10 .8 low Not Available [address] [place], [address] 04/24/2023 14:43:55 04/24/20 23 04/24/2023 COMPL ETE BLOOD COUNT W/DIF F RBC 3.76 10_6/ uL 3.93-5 .22 low Not Available [address] [place], [address] 04/24/2023 14:43:55 04/24/20 23 04/24/2023 COMPL ETE BLOOD COUNT W/DIF F HGB 9.6 g/dL 11.2-1 5.7 low Not Available [address] [place], [address] 04/24/2023 14:43:55 04/24/20 23 04/24/2023 COMPL ETE BLOOD COUNT W/DIF F HCT 31.3 % 36.0-4 6.0 low Not Available [address] [place], [address] 04/24/2023 14:43:55 04/24/20 23 04/24/2023 COMPL ETE BLOOD COUNT W/DIF F MCV 83 fL 80-95 normal Not Available [address] [place], [address] 04/24/2023 14:43:55 04/24/20 23 04/24/2023 COMPL ETE BLOOD COUNT W/DIF F MCH 25.5 pg 27.0-3 3.0 low Not Available [address] [place], [address] 04/24/2023 14:43:55 04/24/20 23 04/24/2023 COMPL ETE BLOOD COUNT W/DIF F MCHC 30.7 % 32.0-3 6.0 low Not Available [address] [place], [address] 04/24/2023 14:43:55 04/24/20 23 04/24/2023 COMPL ETE BLOOD COUNT W/DIF F RDW 16.9 % 11.7-1 4.6 high Not Available [address] [place], [address] 04/24/2023 14:43:55 04/24/20 23 04/24/2023 COMPL ETE BLOOD COUNT W/DIF F platelet count 423 10_3/ uL 130-40 0 high Not Available [address] [place], [address] 04/24/2023 14:43:55 04/24/20 23 04/24/2023 COMPL ETE BLOOD COUNT W/DIF F MPV 9.9 fL 8.0-11 .0 normal Not Available [address] [place], [address] 04/24/2023 14:43:55 04/24/2004/24/2023 COMPL ETE BLOOD COUNT W/DIF F neutrophils % 66.4 Not Available [address] [place], [address] 04/24/2023 14:43:55 04/24/20 23 04/24/2023 COMPL ETE BLOOD COUNT W/DIF F lymphocytes % 24.9 Not Available [address] [place], [address] 04/24/2023 14:43:55 04/24/20 23 04/24/2023 COMPL ETE BLOOD COUNT W/DIF F monocytes % 6.5 Not Available [address] [place], [address] 04/24/2023 14:43:55 04/24/20 23 04/24/2023 COMPL ETE BLOOD COUNT W/DIF F eosinophils % 1.5 Not Available [address] [place], [address] 04/24/2023 14:43:55 04/24/20 23 04/24/2023 COMPL ETE BLOOD COUNT W/DIF F basophils % 0.7 Not Available [address] [place], [address] 04/24/2023 14:43:55 04/24/20 23 04/24/2023 COMPL ETE BLOOD COUNT W/DIF F immature grans % 0.0 Not Available [address] [place], [address] 04/24/2023 14:43:55 04/24/20 23 04/24/2023 COMPL ETE BLOOD COUNT W/DIF F nucleated RBC 0.0 % 0.0-0. 3 normal Not Available [address] [place], [address] 04/24/2023 14:43:55 04/24/20 23 04/24/2023 COMPL ETE BLOOD COUNT W/DIF F absolute neutrophil count 2.66 10_3/ uL 1.2-6. 7 normal Not Available [address] [place], [address] 04/24/2023 14:43:55 04/24/20 23 04/24/2023 COMPL ETE BLOOD COUNT W/DIF F absolute lymphocyte count 1.00 10_3/ uL 1.2-3. 4 low Not Available [address] [place], [address] 04/24/2023 14:43:55 04/24/20 23 04/24/2023 COMPL ETE BLOOD COUNT W/DIF F absolute monocyte count 0.26 10_3/ uL 0.1-0. 8 normal Not Available [address] [place], [address] 04/24/2023 14:43:55 04/24/20 23 04/24/2023 COMPL ETE BLOOD COUNT W/DIF F absolute eosinophil count 0.06 10_3/ uL 0.0-0. 7 normal Not Available [address] [place], [address] 04/24/2023 14:43:55 04/24/20 23 04/24/2023 COMPL ETE BLOOD COUNT W/DIF F absolute basophil count 0.03 10_3/ uL 0.0-0. 2 normal Not Available [address] [place], [address] 04/24/2023 14:43:55 04/24/20 23 04/24/2023 COMPR EHENS BRISSA METAB OLIC PANEL calcium 9.5 mg/dL 8.5-10 .1 normal Not Available [address] [place], [address] 04/24/2023 14:57:58 04/24/20 23 04/24/2023 COMPR EHENS BRISSA METAB OLIC PANEL glucose 97 mg/dL 74-106 normal Not Available [address] [place], [address] 04/24/2023 14:57:58 04/24/20 23 04/24/2023 COMPR EHENS BRISSA METAB OLIC PANEL BUN 11 mg/dL 7-18 normal Not Available [address] [place], [address] 04/24/2023 14:57:58 04/24/20 23 04/24/2023 COMPR EHENS BRISSA METAB OLIC PANEL creatinine 0.4 mg/dL 0.55-1 .02 low Not Available [address] [place], [address] 04/24/2023 14:57:58 04/24/20 23 04/24/2023 COMPR EHENS BRISSA METAB OLIC PANEL estimated GFR 137.31 mL/min /1.73m 2 Not Available [address] [place], [address] 04/24/2023 14:57:58 04/24/20 23 04/24/2023 COMPR EHENS BRISSA METAB OLIC PANEL total protein 8.7 g/dL 6.4-8. 2 high Not Available [address] [place], [address] 04/24/2023 14:57:58 04/24/20 23 04/24/2023 COMPR EHENS BRISSA METAB OLIC PANEL albumin 3.2 g/dL 3.4-5. 0 low Not Available [address] [place], [address] 04/24/2023 14:57:58 04/24/20 23 04/24/2023 COMPR EHENS BRISSA METAB OLIC PANEL bilirubin, total 0.1 mg/dL 0.2-1. 0 low Not Available [address] [place], [address] 04/24/2023 14:57:58 04/24/20 23 04/24/2023 COMPR EHENS BRISSA METAB OLIC PANEL alk phos 256 U/L 46-116 high Not Available [address] [place], [address] 04/24/2023 14:57:58 04/24/20 23 04/24/2023 COMPR EHENS BRISSA METAB OLIC PANEL sodium 140 mmol/ L 136-14 5 normal Not Available [address] [place], [address] 04/24/2023 14:57:58 04/24/20 23 04/24/2023 COMPR EHENS BRISSA METAB OLIC PANEL potassium 3.8 mmol/ L 3.5-5. 1 normal Not Available [address] [place], [address] 04/24/2023 14:57:58 04/24/20 23 04/24/2023 COMPR EHENS BRISSA METAB OLIC PANEL chloride 102 mmol/ L 98-107 normal Not Available [address] [place], [address] 04/24/2023 14:57:58 04/24/20 23 04/24/2023 COMPR EHENS BRISSA METAB OLIC PANEL CO2 27.8 mmol/ L 21.0-3 2.0 normal Not Available [address] [place], [address] 04/24/2023 14:57:58 04/24/20 23 04/24/2023 COMPR EHENS BRISSA METAB OLIC PANEL anion gap 10.2 mmol/ L 3-11 normal Not Available [address] [place], [address] 04/24/2023 14:57:58 04/24/20 23 04/24/2023 COMPR EHENS BRISSA METAB OLIC PANEL AST 30 U/L 15-37 normal Not Available [address] [place], [address] 04/24/2023 14:57:58 04/24/20 23 04/24/2023 COMPR EHENS BRISSA METAB OLIC PANEL ALT 34 U/L 14-59 normal Not Available [address] [place], [address] 04/24/2023 14:57:58 04/24/20 23 04/24/2023 C-MARIELOS CTIVE PROTE IN C-reactive protein 5.46 mg/dL 0.0-0. 3 high Not Available [address] [place], [address] 04/24/2023 14:57:59 04/24/20 23 04/24/2023 ACUTE HEPAT ITIS PROFI LE hepatitis B surface Ag Negati ve negati ve Not Available [address] [place], [address] 04/25/2023 11:53:33 04/24/20 23 04/24/2023 ACUTE HEPAT ITIS PROFI LE hepatitis C Ab W rflx HCV PCR Negati ve negati ve Not Available [address] [place], [address] 04/25/2023 11:53:33 04/24/20 23 04/24/2023 ACUTE HEPAT ITIS PROFI LE hepatitis A antibody IgM Negati ve negati ve Not Available [address] [place], [address] 04/25/2023 11:53:33 04/24/20 23 04/24/2023 ACUTE HEPAT ITIS PROFI LE hepatitis B core antibody Negati ve negati ve Not Available [address] [place], [address] 04/25/2023 11:53:33 05/01/19 24 05/01/2023 fecal occul t blood , stool Occult Blood negati ve Not Available [address], [address], 05/01/2023 16:26:46 05/14/19 24 05/14/2023 COMPL ETE BLOOD COUNT W/DIF F WBC 3.61 10_3/ uL 4.4-10 .8 low Not Available [address] [place], [address] 05/14/2023 12:56:33 05/14/19 24 05/14/2023 COMPL ETE BLOOD COUNT W/DIF F RBC 4.26 10_6/ uL 3.93-5 .22 normal Not Available [address] [place], [address] 05/14/2023 12:56:33 05/14/19 24 05/14/2023 COMPL ETE BLOOD COUNT W/DIF F HGB 10.4 g/dL 11.2-1 5.7 low Not Available [address] [place], [address] 05/14/2023 12:56:33 05/14/19 24 05/14/2023 COMPL ETE BLOOD COUNT W/DIF F HCT 34.3 % 36.0-4 6.0 low Not Available [address] [place], [address] 05/14/2023 12:56:33 05/14/19 24 05/14/2023 COMPL ETE BLOOD COUNT W/DIF F MCV 81 fL 80-95 normal Not Available [address] [place], [address] 05/14/2023 12:56:33 05/14/19 24 05/14/2023 COMPL ETE BLOOD COUNT W/DIF F MCH 24.4 pg 27.0-3 3.0 low Not Available [address] [place], [address] 05/14/2023 12:56:33 05/14/19 24 05/14/2023 COMPL ETE BLOOD COUNT W/DIF F MCHC 30.3 % 32.0-3 6.0 low Not Available [address] [place], [address] 05/14/2023 12:56:33 05/14/19 24 05/14/2023 COMPL ETE BLOOD COUNT W/DIF F RDW 17.8 % 11.7-1 4.6 high Not Available [address] [place], [address] 05/14/2023 12:56:33 05/14/19 24 05/14/2023 COMPL ETE BLOOD COUNT W/DIF F platelet count 351 10_3/ uL 130-40 0 normal Not Available [address] [place], [address] 05/14/2023 12:56:33 05/14/19 24 05/14/2023 COMPL ETE BLOOD COUNT W/DIF F MPV 9.6 fL 8.0-11 .0 normal Not Available [address] [place], [address] 05/14/2023 12:56:33 05/14/19 24 05/14/2023 COMPL ETE BLOOD COUNT W/DIF F neutrophils % 55.3 Not Available [address] [place], [address] 05/14/2023 12:56:33 05/14/19 24 05/14/2023 COMPL ETE BLOOD COUNT W/DIF F lymphocytes % 36.6 Not Available [address] [place], [address] 05/14/2023 12:56:33 05/14/19 24 05/14/2023 COMPL ETE BLOOD COUNT W/DIF F monocytes % 5.3 Not Available [address] [place], [address] 05/14/2023 12:56:33 05/14/19 24 05/14/2023 COMPL ETE BLOOD COUNT W/DIF F eosinophils % 1.9 Not Available [address] [place], [address] 05/14/2023 12:56:33 05/14/19 24 05/14/2023 COMPL ETE BLOOD COUNT W/DIF F basophils % 0.6 Not Available [address] [place], [address] 05/14/2023 12:56:33 05/14/19 24 05/14/2023 COMPL ETE BLOOD COUNT W/DIF F immature grans % 0.3 Not Available [address] [place], [address] 05/14/2023 12:56:33 05/14/19 24 05/14/2023 COMPL ETE BLOOD COUNT W/DIF F nucleated RBC 0.0 % 0.0-0. 3 normal Not Available [address] [place], [address] 05/14/2023 12:56:33 05/14/19 24 05/14/2023 COMPL ETE BLOOD COUNT W/DIF F absolute neutrophil count 2.00 10_3/ uL 1.2-6. 7 normal Not Available [address] [place], [address] 05/14/2023 12:56:33 05/14/19 24 05/14/2023 COMPL ETE BLOOD COUNT W/DIF F absolute lymphocyte count 1.32 10_3/ uL 1.2-3. 4 normal Not Available [address] [place], [address] 05/14/2023 12:56:33 05/14/19 24 05/14/2023 COMPL ETE BLOOD COUNT W/DIF F absolute monocyte count 0.19 10_3/ uL 0.1-0. 8 normal Not Available [address] [place], [address] 05/14/2023 12:56:33 05/14/19 24 05/14/2023 COMPL ETE BLOOD COUNT W/DIF F absolute eosinophil count 0.07 10_3/ uL 0.0-0. 7 normal Not Available [address] [place], [address] 05/14/2023 12:56:33 05/14/19 24 05/14/2023 COMPL ETE BLOOD COUNT W/DIF F absolute basophil count 0.02 10_3/ uL 0.0-0. 2 normal Not Available [address] [place], [address] 05/14/2023 12:56:33 05/14/19 24 05/14/2023 ESR ESR 67 mm/HR 0-20 high Not Available [address] [place], [address] 05/14/2023 12:56:35 05/14/19 24 05/14/2023 COMPR EHENS BRISSA METAB OLIC PANEL calcium 9.4 mg/dL 8.5-10 .1 normal Not Available [address] [place], [address] 05/14/2023 13:06:39 05/14/19 24 05/14/2023 COMPR EHENS BRISSA METAB OLIC PANEL glucose 90 mg/dL 74-106 normal Not Available [address] [place], [address] 05/14/2023 13:06:39 05/14/19 24 05/14/2023 COMPR EHENS BRISSA METAB OLIC PANEL BUN 13 mg/dL 7-18 normal Not Available [address] [place], [address] 05/14/2023 13:06:39 05/14/19 24 05/14/2023 COMPR EHENS BRISSA METAB OLIC PANEL creatinine 0.4 mg/dL 0.55-1 .02 low Not Available [address] [place], [address] 05/14/2023 13:06:39 05/14/19 24 05/14/2023 COMPR EHENS BRISSA METAB OLIC PANEL estimated GFR 137.31 mL/min /1.73m 2 Not Available [address] [place], [address] 05/14/2023 13:06:39 05/14/19 24 05/14/2023 COMPR EHENS BRISSA METAB OLIC PANEL total protein 7.8 g/dL 6.4-8. 2 normal Not Available [address] [place], [address] 05/14/2023 13:06:39 05/14/19 24 05/14/2023 COMPR EHENS BRISSA METAB OLIC PANEL albumin 3.3 g/dL 3.4-5. 0 low Not Available [address] [place], [address] 05/14/2023 13:06:39 05/14/19 24 05/14/2023 COMPR EHENS BRISSA METAB OLIC PANEL bilirubin, total 0.2 mg/dL 0.2-1. 0 normal Not Available [address] [place], [address] 05/14/2023 13:06:39 05/14/19 24 05/14/2023 COMPR EHENS BRISSA METAB OLIC PANEL alk phos 283 U/L 46-116 high Not Available [address] [place], [address] 05/14/2023 13:06:39 05/14/19 24 05/14/2023 COMPR EHENS BRISSA METAB OLIC PANEL sodium 140 mmol/ L 136-14 5 normal Not Available [address] [place], [address] 05/14/2023 13:06:39 05/14/19 24 05/14/2023 COMPR EHENS BRISSA METAB OLIC PANEL potassium 4.1 mmol/ L 3.5-5. 1 normal Not Available [address] [place], [address] 05/14/2023 13:06:39 05/14/19 24 05/14/2023 COMPR EHENS BRISSA METAB OLIC PANEL chloride 102 mmol/ L 98-107 normal Not Available [address] [place], [address] 05/14/2023 13:06:39 05/14/19 24 05/14/2023 COMPR EHENS BRISSA METAB OLIC PANEL CO2 27.4 mmol/ L 21.0-3 2.0 normal Not Available [address] [place], [address] 05/14/2023 13:06:39 05/14/19 24 05/14/2023 COMPR EHENS BRISSA METAB OLIC PANEL anion gap 10.6 mmol/ L 3-11 normal Not Available [address] [place], [address] 05/14/2023 13:06:39 05/14/19 24 05/14/2023 COMPR EHENS BRISSA METAB OLIC PANEL AST 35 U/L 15-37 normal Not Available [address] [place], [address] 05/14/2023 13:06:39 05/14/19 24 05/14/2023 COMPR EHENS BRISSA METAB OLIC PANEL ALT 64 U/L 14-59 high Not Available [address] [place], [address] 05/14/2023 13:06:39 05/14/19 24 05/14/2023 CREAT INE KINAS E creatine kinase 21 U/L 26-192 low Not Available [address] [place], [address] 05/14/2023 13:06:43 05/14/19 24 05/14/2023 C-MARIELOS CTIVE PROTE IN C-reactive protein 3.60 mg/dL 0.0-0. 3 high Not Available [address] [place], [address] 05/14/2023 13:06:43 06/17/19 24 06/17/2023 COMPL ETE BLOOD COUNT W/DIF F WBC 4.17 10_3/ uL 4.4-10 .8 low Not Available [address] [place], [address] 06/17/2023 13:58:18 06/17/19 24 06/17/2023 COMPL ETE BLOOD COUNT W/DIF F RBC 4.90 10_6/ uL 3.93-5 .22 normal Not Available [address] [place], [address] 06/17/2023 13:58:18 06/17/19 24 06/17/2023 COMPL ETE BLOOD COUNT W/DIF F HGB 12.1 g/dL 11.2-1 5.7 normal Not Available [address] [place], [address] 06/17/2023 13:58:18 06/17/19 24 06/17/2023 COMPL ETE BLOOD COUNT W/DIF F HCT 38.4 % 36.0-4 6.0 normal Not Available [address] [place], [address] 06/17/2023 13:58:18 06/17/19 24 06/17/2023 COMPL ETE BLOOD COUNT W/DIF F MCV 78 fL 80-95 low Not Available [address] [place], [address] 06/17/2023 13:58:18 06/17/19 24 06/17/2023 COMPL ETE BLOOD COUNT W/DIF F MCH 24.7 pg 27.0-3 3.0 low Not Available [address] [place], [address] 06/17/2023 13:58:18 06/17/19 24 06/17/2023 COMPL ETE BLOOD COUNT W/DIF F MCHC 31.5 % 32.0-3 6.0 low Not Available [address] [place], [address] 06/17/2023 13:58:18 06/17/19 24 06/17/2023 COMPL ETE BLOOD COUNT W/DIF F RDW 20.3 % 11.7-1 4.6 high Not Available [address] [place], [address] 06/17/2023 13:58:18 06/17/19 24 06/17/2023 COMPL ETE BLOOD COUNT W/DIF F platelet count 325 10_3/ uL 130-40 0 normal Not Available [address] [place], [address] 06/17/2023 13:58:18 06/17/19 24 06/17/2023 COMPL ETE BLOOD COUNT W/DIF F MPV 10.1 fL 8.0-11 .0 normal Not Available [address] [place], [address] 06/17/2023 13:58:18 06/17/19 24 06/17/2023 COMPL ETE BLOOD COUNT W/DIF F neutrophils % 58.2 Not Available [address] [place], [address] 06/17/2023 13:58:18 06/17/19 24 06/17/2023 COMPL ETE BLOOD COUNT W/DIF F lymphocytes % 32.1 Not Available [address] [place], [address] 06/17/2023 13:58:18 06/17/19 24 06/17/2023 COMPL ETE BLOOD COUNT W/DIF F monocytes % 7.4 Not Available Michaela buchanan [address] [place], [address] 06/17/2023 13:58:18 06/17/19 24 06/17/2023 COMPL ETE BLOOD COUNT W/DIF F eosinophils % 1.4 Not Available [address] [place], [address] 06/17/2023 13:58:18 06/17/19 24 06/17/2023 COMPL ETE BLOOD COUNT W/DIF F basophils % 0.7 Not Available Tarasfelicia annides [address] [place], [address] 06/17/2023 13:58:18 06/17/19 24 06/17/2023 COMPL ETE BLOOD COUNT W/DIF F immature grans % 0.2 Not Available [address] [place], [address] 06/17/2023 13:58:18 06/17/19 24 06/17/2023 COMPL ETE BLOOD COUNT W/DIF F nucleated RBC 0.0 % 0.0-0. 3 normal Not Available [address] [place], [address] 06/17/2023 13:58:18 06/17/19 24 06/17/2023 COMPL ETE BLOOD COUNT W/DIF F absolute neutrophil count 2.43 10_3/ uL 1.2-6. 7 normal Not Available [address] [place], [address] 06/17/2023 13:58:18 06/17/19 24 06/17/2023 COMPL ETE BLOOD COUNT W/DIF F absolute lymphocyte count 1.34 10_3/ uL 1.2-3. 4 normal Not Available [address] [place], [address] 06/17/2023 13:58:18 06/17/19 24 06/17/2023 COMPL ETE BLOOD COUNT W/DIF F absolute monocyte count 0.31 10_3/ uL 0.1-0. 8 normal Not Available [address] [place], [address] 06/17/2023 13:58:18 06/17/19 24 06/17/2023 COMPL ETE BLOOD COUNT W/DIF F absolute eosinophil count 0.06 10_3/ uL 0.0-0. 7 normal Not Available [address] [place], [address] 06/17/2023 13:58:18 06/17/19 24 06/17/2023 COMPL ETE BLOOD COUNT W/DIF F absolute basophil count 0.03 10_3/ uL 0.0-0. 2 normal Not Available [address] [place], [address] 06/17/2023 13:58:18 06/17/19 24 06/17/2023 COMPL ETE BLOOD COUNT W/DIF F diff comment RBC Morph Review ed Not Available [address] [place], [address] 06/17/2023 13:58:18 06/17/19 24 06/17/2023 COMPL ETE BLOOD COUNT W/DIF F RBC morphology See Below Not Available [address] [place], [address] 06/17/2023 13:58:18 06/17/19 24 06/17/2023 COMPL ETE BLOOD COUNT W/DIF F anisocytosis 1+ Not Available Nor [address] [place], [address] 06/17/2023 13:58:18 06/17/19 24 06/17/2023 COMPL ETE BLOOD COUNT W/DIF F microcytosis 1+ Not Available [address] [place], [address] 06/17/2023 13:58:18 06/17/19 24 06/17/2023 COMPL ETE BLOOD COUNT W/DIF F poikilocytes 1+ Not Available Nor [address] [place], [address] 06/17/2023 13:58:18 07/01/19 24 07/01/2023 COMPR EHENS BRISSA METAB OLIC PANEL calcium 9.5 mg/dL 8.5-10 .1 normal Not Available [address] [place], [address] 07/01/2023 16:12:34 07/01/19 24 07/01/2023 COMPR EHENS BRISSA METAB OLIC PANEL glucose 102 mg/dL 74-106 normal Not Available [address] [place], [address] 07/01/2023 16:12:34 07/01/19 24 07/01/2023 COMPR EHENS BRISSA METAB OLIC PANEL BUN 13 mg/dL 7-18 normal Not Available [address] [place], [address] 07/01/2023 16:12:34 07/01/19 24 07/01/2023 COMPR EHENS BRISSA METAB OLIC PANEL creatinine 0.4 mg/dL 0.55-1 .02 low Not Available [address] [place], [address] 07/01/2023 16:12:34 07/01/19 24 07/01/2023 COMPR EHENS BRISSA METAB OLIC PANEL estimated GFR 136.46 mL/min /1.73m 2 Not Available [address] [place], [address] 07/01/2023 16:12:34 07/01/19 24 07/01/2023 COMPR EHENS BRISSA METAB OLIC PANEL total protein 7.9 g/dL 6.4-8. 2 normal Not Available [address] [place], [address] 07/01/2023 16:12:34 07/01/19 24 07/01/2023 COMPR EHENS BRISSA METAB OLIC PANEL albumin 3.6 g/dL 3.4-5. 0 normal Not Available [address] [place], [address] 07/01/2023 16:12:34 07/01/19 24 07/01/2023 COMPR EHENS BRISSA METAB OLIC PANEL bilirubin, total 0.1 mg/dL 0.2-1. 0 low Not Available [address] [place], [address] 07/01/2023 16:12:34 07/01/19 24 07/01/2023 COMPR EHENS BRISSA METAB OLIC PANEL alk phos 233 U/L 46-116 high Not Available [address] [place], [address] 07/01/2023 16:12:34 07/01/19 24 07/01/2023 COMPR EHENS BRISSA METAB OLIC PANEL sodium 142 mmol/ L 136-14 5 normal Not Available [address] [place], [address] 07/01/2023 16:12:34 07/01/19 24 07/01/2023 COMPR EHENS BRISSA METAB OLIC PANEL potassium 4.0 mmol/ L 3.5-5. 1 normal Not Available [address] [place], [address] 07/01/2023 16:12:34 07/01/19 24 07/01/2023 COMPR EHENS BRISSA METAB OLIC PANEL chloride 104 mmol/ L 98-107 normal Not Available [address] [place], [address] 07/01/2023 16:12:34 07/01/19 24 07/01/2023 COMPR EHENS BRISSA METAB OLIC PANEL CO2 26.4 mmol/ L 21.0-3 2.0 normal Not Available [address] [place], [address] 07/01/2023 16:12:34 07/01/19 24 07/01/2023 COMPR EHENS BRISSA METAB OLIC PANEL anion gap 11.6 mmol/ L 3-11 high Not Available [address] [place], [address] 07/01/2023 16:12:34 07/01/19 24 07/01/2023 COMPR EHENS BRISSA METAB OLIC PANEL AST 27 U/L 15-37 normal Not Available [address] [place], [address] 07/01/2023 16:12:34 07/01/19 24 07/01/2023 COMPR EHENS BRISSA METAB OLIC PANEL ALT 70 U/L 14-59 high Not Available [address] [place], [address] 07/01/2023 16:12:34 07/01/19 24 07/01/2023 IRON/ IBCT iron 42 ug/dL 50-170 low Not Available [address] [place], [address] 07/01/2023 16:36:37 07/01/19 24 07/01/2023 IRON/ IBCT total iron binding capacity 403 ug/dL 250-45 0 normal Not Available [address] [place], [address] 07/01/2023 16:36:37 07/01/19 24 07/01/2023 IRON/ IBCT transferrin sat 10 % 15-50 low Not Available [address] [place], [address] 07/01/2023 16:36:37 07/01/19 24 07/02/2023 TISSU E TRANS GLUTA YASH E IGA tissue transglutami nase IgA <4.0 cu <20.0 Not Available [address] [place], [address] 07/02/2023 11:39:19 07/01/19 24 07/02/2023 IGG IgG 1631 mg/dL 610-16 16 abnormal Not Available [address] [place], [address] 07/02/2023 15:55:58 07/01/19 24 07/02/2023 IGA IgA 284 mg/dL 85-499 Not Available [address] [place], [address] 07/02/2023 15:55:58 07/29/19 24 07/29/2023 VITAM IN D 25 TOTAL vitamin D 25 total 39.4 NG/mL 30-100 normal Not Available [address] [place], [address] 07/29/2023 13:31:45 06/10/19 24 06/10/2023 x-ray imagi ng repor t Ro t Name: Tana Cavazos Unit #: [id number] Loc: DI Orderi ng Provid er: Caleb Lopez M.D. 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 TECHNI QUE: 2D digita l imagin g was perfor med of the lumbar spine. Two images were obtain ed. AP and cross- table latera l views were obtain ed. COMPAR JES: CR XR CHEST 2V PA LATERA L from 2020 CR,XR XR LUMBAR SPINE COMPLE TE from 2022 FINDIN GS: The cross- table latera l image is subopt imal due to patien t positi oning. There is again seen a marked right convex thorac olumba r curvat ure center ed at L1. There are spinal rods extend ing the entire length of the visual ized thorac ic and lumbos acral spine. The rods appear intact . No acute fractu re is seen in the lumbar spine, within the limits of the examin ation. The bones appear osteop enic. Chroni c deform ity is seen of the hips bilate rally. This is not comple tely imaged on the examin ation. There is a modera te amount of stool in the rectum . IMPRES MARCELA: 1. Examin ation is limite d due to the patien t positi oning and scolio sis. 2. 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 3. No defini te acute fractu re is identi fied. DATA REPOSI TORY: RADIAT ION DOSE DELIVE RED: Ordere d By: Caleb Lopez M.D. CC: ------ ------ ------ ------ ------ ------ ------ ------ ------ ------ ------ ------ - Dictat ed By: Anurag Frost M.D. 1240 1240 Transc ribed By: Anurag Frost 1240 This is privil eged, confid ential inform ation intend ed only for the provid er named. Any use or distri bution by any person other than this provid er is strict ly prohib ited. If you receiv e this report in error, please notify us immedi corina at [phone] and return the origin al report to us at the addres s above. Thank- you. [facility] [address], [place], [address] 06/11/2023 05:27:44 06/10/19 24 06/10/2023 x-ray imagi ng repor t Patien t Name: Tana Cavazos Unit #: [id number] Loc: DI Orderi ng Provid er: LORENGILSON CAMPBELL t #: [id number] Status : REG CLI Primar y Care Provid er: Melody watsonNathalie patrick Date of Exam: Sex: F Admiss ion Date: : 1995 Age: 27 Exam(s ) XR HIP PELVIS ADULT BL EXAM: XR HIP PELVIS ADULT BL CLINIC AL HISTOR Y: CEREBR AL PALSY, CHRONI C OSTEOM YELITI S,EVAL PELVIC HARDWA RE. TECHNI QUE: 2D digita l imagin g was perfor med of the pelvis and bilate ral hips. Three images were obtain ed. AP pelvis and bilate ral latera l views of both hips were obtain ed. COMPAR JES: CR XR HIP PELVIS ADULT BL from 2020 FINDIN GS: BONES: No acute fractu re is presen t. No bony destru ctive lesion is seen. The distal aspect s of spinal rods are seen in the lower lumbar spine and sacrum . The bones are osteop enic. No acute fra cture is identi fied. JOINTS : Chroni c deform ities involv ing the acetab elzbieta bilate rally and fragme ntatio n of both ernie l heads are noted. Chroni c disloc ations of the hips are noted. SOFT TISSUE : There is a large amount of stool in the rectum . IMPRES MARCELA: 1. No acute abnorm ality. 2. Chroni c deform ities involv ing the pelvis and hips bilate rally. DATA REPOSI TORY: RADIAT ION DOSE DELIVE RED: Ordere d By: GILSON BARKSDALE CC: ------ ------ ------ ------ ------ ------ ------ ------ ------ ------ ------ ------ - Dictat ed By: Anurag Frost M.D. 1243 1243 Transc ribed By: Anurag Frost 1243 This is privil eged, confid ential inform ation intend ed only for the provid er named. Any use or distri bution by any person other than this provid er is strict ly prohib ited. If you receiv e this report in error, please notify us immedi maxinely at and return the origin al report to us at the addres s above. Thank- you. [facility] [address], [place], [address] 06/11/2023 05:27:45 Result Notes None recorded. Problems Name Status Onset Date Resolution Date Notes Provider Name and Address Organization Details Recorded Time Consciousness and/or awareness finding Active 2016 Problem Code: R41.89; Problem Code Type: ICD-10; LORNA MARTINEZ APRN [address], [place], [address] , 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 Overall stable and well cared for. 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 Order mesh slings, caregiver will contact [facility] to see if the ones needed are available through them since not able to get through [facility]. Needs new TLSO for her back, current one no longer fits due to weight gain, breast development, recent surgeries. Order new TLSO through [employer], do referral to PT for new education on TLSO once fitted as well as new wheelchair evaluation and then will order wheelchair with recommendatio ns for device specification s. Good supportive foot wear and keeping feet elevated off surfaces. has heel protectors as well. Continue with good perianal hygiene. Continue current bowel regimen since overall effective, push fluid intake and high fiber foods. Encouraged good dental hygiene and see dentist routinely. Problem Code: G82.50; Problem Code Type: ICD-10; [address], [place], [address] , [facility] 3 06:06:34 Scoliosis deformity of spine Active 2016 Problem Code: M41.9; Problem Code Type: ICD-10; [address], [place], [address] , [facility] 3 06:06:35 Spasm Active 201603/02/2017 - Comments only - Emelyn Easley MD - Patient will need on going physical therapy to help prevent worsening spasticity and contractures. Problem Code: R25.2; Problem Code Type: ICD-10; [address], [place], [address] , [facility] 3 06:06:35 Idiopathic urticaria Active 2016 Problem Code: L50.1; Problem Code Type: ICD-10; [address], [place], [address] , [facility] 3 06:06:35 Supraventricu lar tachycardia Active 201606/08/2017 - Comments only - Lorna Martinez APRN - monitor for now. Problem Code: I47.1; Problem Code Type: ICD-Kylie; [address], [place], [address] , [facility] 3 06:06:35 Traumatic or non-traumatic injury Active 2016 Problem Code: T14.90; Problem Code Type: ICD-10; LORNA MARTINEZ APRN [address], [place], [address] , [facility] 3 06:06:35 Disorder of muscle Active 201610/20/2016 - Comments only - Emelyn Easley MD - This causes some constipation that has been improved by miralax. Problem Code: M62.9; Problem Code Type: ICD-10; LORNA MARTINEZ APRN [address], [place], [address] , [facility] 3 06:06:35 Adult health examination Active 201610/20/2016 - Comments only - Emelyn Easley MD - Tana Cavazos is a 21 year old female who a quadriplegia with cognitive dysfunction. She is here with her 3 care givers for a well exam. They were able to get her on the exam table and she tolerated the exam fairly well. Jairon has never been sexually active no pap was needed. Her immunization are up to date. She sees her dentist, eats healthy food and they follow all recommended medical care. Problem Code: Z00.00; Problem Code Type: ICD-10; LORNA MARTINEZ APRN [address], [place], [address] , [facility] 3 06:06:35 Impacted cerumen of bilateral ears Completed 201609/29/2016 09/15/2016 - Comments only - Jade Arevalo SETTER OUT - Rev'd procedure for cerumen removal using warm water and hydrogen peroxide solution as well as possible need for manual removal. Discussed common side effects. Rec'd verbal consent to proceed. Right ear cerumen came out with irrigation. Left cerumen came out with irrigation. No manual removal with forceps required. She tolerated procedure well. Right EAC is clear, TM is translucent, mobile with good cone of light. Left EAC is clear, TM is transulcent, mobile with good cone of light. Problem Code: H61.23; Problem Code Type: ICD-10; Not Available [facility] 3 03:53:19 Impacted cerumen Active 201612/03/2016 - Comments only - Jade Arevalo SETTER OUT - - Cerumen not impacted today. Recommended to continue regular checks at future visits, discussed appropriate ear hygiene, and advised f/u for development of symptoms such as ear pulling/pain or trouble hearing. The patient verbalized understanding and agreement to this care plan. Problem Code: H61.20; Problem Code Type: ICD-10; [address], [place], [address] , [facility] 3 06:06:35 Pre-surgery evaluation Completed 201601/09/2017 12/26/2016 - Comments only - Jade Arevalo SETTER OUT - - Pt presents for pre-op physical as she is having a DEXA scan on 12/30 at [facility] and they have requested that she has a physical within the last 30 days. There are no concerns raised by her aid who is with her, and no findings on exam that suggest she should not move forward with procedure as scheduled. Problem Code: Z01.818; Problem Code Type: ICD-10; Not Available [facility] 3 03:53:19 Contracture of joint of hand Active 201606/08/2017 - Comments only - Lorna Martinez APRN - continue wearing splint during the day. Wash cloth in her hand while sleeping. Continue with routine stretching and movement as able. Problem Code: M24.549; Problem Code Type: ICD-10; [address], [place], [address] , [facility] 3 06:06:35 History of skin and/or subcutaneous tissue disease Active 201706/08/2017 - Comments only - Lorna Martinez APRN - has seen podiatry. Monitor feet routinely. Problem Code: Z87.2; Problem Code Type: ICD-10; [address], [place], [address] , [facility] 3 06:06:35 Disorder of tooth development Completed 201703/11/2018 Problem Code: K00.9; Problem Code Type: ICD-10; Not Available [facility] 3 03:53:19 Exposure to communicable disease Completed 202004/03/2021 Problem Code: Z20.828; Problem Code Type: ICD-10; Not Available [facility] 3 03:53:20 Localized eruption of skin Completed 202112/08/2021 Problem Code: R21; Problem Code Type: ICD-10; Not Available [facility] 3 03:53:20 Disorder of skin appendage Completed 202112/08/2021 Problem Code: L73.9; Problem Code Type: ICD-10; Not Available [facility] 3 03:53:20 Sepsis caused by Escherichia coli Active 202208/07/2022 - Comments only - Lorna Martinez APRN - continue mgmt through specialist. Blood drawn, may not be enough of sample but will send. If not enough, will need to come to office. drawn CBCD, CRP, CMP. Problem Code: A41.51; Problem Code Type: ICD-10; [address], [place], [address] , [facility] 3 06:06:35 Constipation Active 2022 Problem Code: K59.00; Problem Code Type: ICD-10; [address], [place], [address] , [facility] 3 06:06:35 Spinal cord abscess Active [address], [place], [address] , [facility] 3 06:06:35 High enzyme level in serum Active 2022 Problem Code: R74.8; Problem Code Type: ICD-10; [address], [facility] [address] , [facility] 3 06:06:35 Anemia Active 2022 Problem Code: D64.9; Problem Code Type: ICD-10; [address], [facility] [address] , [facility] 3 06:06:35 Vitamin D deficiency Active 2022 4.4.24- After completes current HD vitamin D she is to change to vitamin D 5000 IU once a day khb. [address], [place] [facility] [address] , [facility] 4 07:57:05 Osteomyelitis Active 2022 Problem Code: M86.9; Problem Code Type: ICD-10; [address], [facility] [address] , [facility] 3 06:06:35 Congenital deformity of spine Active 2022 Problem Code: Q67.5; Problem Code Type: ICD-10; [address], [facility] [address] , [facility] 3 06:06:35 Chronic osteomyelitis with draining sinus Active 2022 Problem Code: M86.48; Problem Code Type: ICD-10; [address], [facility] [id number] [place] [address] 3 06:06:35 Fever Completed 202011/07/2021 Problem Code: R50.9; Problem Code Type: ICD-10; Not Available [facility] 3 03:53:22 Pain of toe of left foot Completed 201603/02/2017 Problem Code: M79.675; Problem Code Type: ICD-10; Not Available [facility] 3 03:53:23 Tinea pedis Completed 201607/17/2020 Problem Code: B35.3; Problem Code Type: ICD-10; Not Available [facility] 3 03:53:23 Device in situ Completed 201609/02/2018 Problem Code: Z97.8; Problem Code Type: ICD-10; Not Available [facility] 3 03:53:24 Closed fracture of lower leg Completed 201607/17/2020 Problem Code: S82.90xD; Problem Code Type: ICD-10; Not Available [facility] 3 03:53:27 Pain of right wrist Completed 202011/07/2021 Problem Code: M25.531; Problem Code Type: ICD-10; Not Available [facility] 3 03:53:27 Disorder of skin and/or subcutaneous tissue Completed 201807/17/2020 Problem Code: L98.9; Problem Code Type: ICD-10; Not Available [facility] 3 03:53:28 Pain in right hip joint Completed 202011/07/2021 Problem Code: M25.551; Problem Code Type: ICD-10; Not Available [facility] 3 03:53:30 Muscle pain Completed 202011/07/2021 Problem Code: M79.10; Problem Code Type: ICD-10; Not Available [facility] 3 03:53:32 Pain in right lower limb Completed 201607/17/2020 Problem Code: M79.604; Problem Code Type: ICD-10; Not Available [facility] 3 03:53:32 Vaccine adverse reaction Completed 201911/07/2021 Not Available [facility] 3 03:53:33 Chronic ulcer of foot Completed 201707/17/2020 Problem Code: L97.529; Problem Code Type: ICD-10; Not Available [facility] 3 03:53:33 Accidental fall Completed 201807/17/2020 Not Available [facility] 3 03:53:34 Cellulitis of toe Completed 201605/08/2017 Problem Code: L03.039; Problem Code Type: ICD-10; Not Available [facility] 3 03:53:35 Pre-surgery evaluation Completed 202202/22/2023 Problem Code: Z01.818; Problem Code Type: ICD-10; Not Available [facility] 4 05:38:03 Intertrigo Active 2023 Martha Lopez RN [facility], [facility] 4 09:39:19 Thrombocytosi s Active 2023 LORNA MARTINEZ APRN [facility] [address], [place], [address] , [facility] 4 21:17:57 Notes:*Problem Name: Oliguri a and anuria *Problem Status: active *Comments: *Problem Code: R34 *Problem Code Type: ICD-10 *Note Date: 03/04/2018 Problem Notes None recorded. Procedures Surgical History None recorded. Imaging Results Imaging Date Name Status LastModified by [facility] Details LastModified Time 06/10/2023 x-ray imaging report completed [address] [facility] [id number] 06/11/2023 05:27:44 06/10/2023 x-ray imaging report completed [address] [facility] [id number] 06/11/2023 05:27:45 Procedure Notes None recorded. Medical Equipment None Reported. Allergies Allergen ID Allergen Name Allergen Category Reaction Reaction Severity Criticality Documentation Date Start Date Code Code System Note Provider Name and Address Organization Details Recorded Time 55295 fluoxetin e hydrochlo ride medicatio n other mild Not available 03/06/20232018 72053 4 RxNorm unsur e Aller gyRea ction : 'unsu re'; Not Available [facility] 3 16:14:36 14438 doxycycli ne Not available rash severe Not available 03/06/20232022 3640 RxNorm Aller gyRea ction : 'Rash , [place] avelino l,'; Not Available [facility] 16:14:36 Medications Name Sig Start Date Stop Date Status Note LastModified by Organization Details LastModified Time acetamino phen 325 mg tablet Take 3 tablet by mouth every eight hours as needed active Per [facility] d/c summary 02/25/23 Not Available Not Available Not Available cefpodoxi me 200 mg tablet TAKE ONE TABLET BY MOUTH TWICE A DAY WITH MEAL/MAXIMINO D 04/24 completed Not Available Not Available Not Available levonorge strel-eth inyl estradiol 0.1 mg-20 mcg tablet Take 1 tab by mouth daily continuo usly for the 3 weeks of active pill then start the next pack. 02/04 completed Not Available Not Available Not Available senna 8.6 mg tablet Take 2 tablet every night 2023 active Not Available Not Available Not Avai lable ondansetr on HCl 4 mg tablet Take 1 tablet by mouth every eight hours as needed 07/23 completed Per [facility] d/c summary 02/25/23 Not Available Not Available Not Available Debrox 6.5 % ear drops Instill 5 drop into both ears twice a day 3 days prior to next visit 2020 active Not Available Not Available Not Avai lable bacitraci n zinc 500 unit/gram topical ointment Apply as directed to affected area once a day Apply topicall y once daily to affected area 07/23 completed Per [facility] d/c summary 02/25/23 Not Available Not Available Not Available sulfameth oxazole 800 mg-trimet hoprim 160 mg tablet Take 1 tablet every 12 hours by oral route as directed for 120 days. 07/23 completed Not Available Not Available Not Available Ensure High Protein oral liquid Drink 1 can three times a day active Not Available Not Available No t Available baclofen 10 mg tablet TAKE ONE TABLET BY MOUTH TWO TIMES A DAY 09/19 completed Not Available Not Available Not Available bisacodyl 10 mg rectal supposito ry Insert 1 supposit ory once a day as needed 2023 active Not Available Not Available Not Avai lable cephalexi n 500 mg capsule TAKE ONE CAPSULE BY MOUTH TWICE A DAY 04/24 completed Not Available Not Available Not Available nystatin 100,000 unit/gram topical cream APPLY A SMALL AMOUNT TO AFFECTED AREA TWO TIMES A DAY TO EUGENIA- AREA UNTIL RESOLVED as needed active talk to caregive rs before prescrib ing. Not Available Not Available Not Available cephalexi n 500 mg tablet Take 1 tablet by mouth twice a day 06/22 completed Not Available Not Available Not Available capsaicin 0.025 % topical cream apply to hips and knees TID PRN pain 2016 active Not Available Not Available Not Avai lable nystatin 100,000 unit/gram topical powder APPLY TO AFFECTED AREA(S) FOUR TIMES A DAY 2023 active Not Available Not Available Not Avai lable lorazepam 1 mg tablet 1 tablet PO PRN (give 1/2 to 1 tab prior to stressfu l events) 10/20 completed Not Available Not Available Not Available polyethyl da glycol 3350 17 gram/dose oral powder MIX 1 CAPFUL IN 8 OZ OF WATER AND TAKE BY MOUTH ONCE A DAY 2023 active Not Available Not Available Not Avai lable levofloxa kylie 750 mg tablet Take 750 mg as directed 750mg daily for probably 6 wks started on 07/07/1909/19 completed Not Available Not Available Not Available Vitamin D2 1,250 mcg (50,000 unit) capsule TAKE 1 CAPSULE BY MOUTH ONCE A WEEK active Not Available Not Available No t Available ketoconaz ole 2 % topical cream apply 2 times a day between toes 05/08 completed Not Available Not Available Not Available clotrimaz ole 1 % topical cream Apply twice a day as directed 01/15 completed Not Available Not Available Not Available doxycycli ne hyclate 100 mg tablet TAKE 1 TABLET BY MOUTH TWICE DAILY 04/24 completed Not Available Not Available Not Available Bactrim 400 mg-80 mg tablet Take 1 tablet by mouth twice a day 09/27 completed last [facility] Infectio us note stated Bactrim DS 800-160m g 1 BID Not Available Not Available Not Available sodium chloride 0.9 % (flush) injection syringe Infuse 10ml into venous catheter 2 times a day 07/23 completed Per [facility] d/c summary 02/25/23 Not Available Not Available Not Available ceftriaxo ne 2 gram/50 mL in dextrose (iso-osm) intraveno us piggyback Infuse 2 gram intraven ously once a day Infuse 50ml (2g total) into a venous catheter daily 07/23 completed Per [facility] d/c summary 02/25/23 Not Available Not Available Not Available cranberry 1 gummy daily active Not Available Not Available No t Available iron 1 gummy daily active Not Available Not Available No t Available Multivita l 0.4 mg-162 mg-18 mg tablet 1 tab qd 2017 active Not Available Not Available Not Avai lable Multivita l 2 tablet once a day 2017 active Not Available Not Available Not Avai lable cholecalc iferol (vitamin D3) 50 mcg (2,000 unit) capsule TAKE ONE CAPSULE BY MOUTH EVERY DAY 04/24 completed Not Available Not Available Not Available diazepam 5 mg/5 mL (1 mg/mL, 5 mL) oral solution 3 mg PO Q8H PRN spasm 10/20 completed Not Available Not Available Not Available Azo Cranberry 250 mg chewable tablet 3 gummies at bedtime. 2019 active Not Available Not Available Not Avai lable Probiotic (B. coagulans ) 10 billion cell capsule,d elayed release Take 1 capsule by mouth twice a day active Not Available Not Available No t Available Metamucil 0.4 gram capsule Take 3 capsule by mouth once a day 2022 active Not Available Not Available Not Avai lable daptomyci n 350 mg intraveno us solution Infuse 350 mg intraven ously once a day every 24 hours 07/23 completed Not Available Not Available Not Available lidocaine HCl 4 % topical patch Apply 2 patch to skin once a day Place 2 patches on skin once daily (leave on for 12 hours, then remove patch for 12 patch free hours) 07/23 completed Per [facility] d/c summary 02/25/23 Not Available Not Available Not Available Vitals Date Recorded Body height Body mass index (BMI) Body weight Systolic blood pressure Diastolic blood pressure Provider Name and Address Organization Details Last Updated DateTime 04/24/2023 157.48 cm 22.7 kg/m2 34274.45 g 98 mm[Hg] 68 mm[Hg] YOGESH BENDER [facility] 3 09:07:06 Date Recorded Body height Body mass index (BMI) Body weight Oxygen saturation Oxygen saturation in Arterial blood by Pulse oximetry Heart rate Systolic blood pressure Diastolic blood pressure Provider Name and Address Organization Details Last Updated DateTime 4 157.48 cm 22.7 kg/m2 06847.4 5 g 99 % 99 % 86 /min 112 mm[Hg] 74 mm[Hg] YOGESH BENDER [facility] 4 08:53:15 Social History None recorded. Functional Status None recorded. Mental Status None recorded. Family History Relationship Description Onset Age of this Age Resolved Age Notes Notes:*Problem: mom - living - eye condition father not involved Siblings- 4- alive and well Children- none HTN: no HLD: no CAD: MGM DM: no Breast CA: no Colon CA: no Breast CA: no Medical History No medical history recorded. Gynecological HistoryNo gynecological history recorded. Obstetrics History GPAL:G 0 P 0 0 0 0 Immunizations Vaccine Type Date Status Provider Name and Address Organization Details Recorded Time MMR 09/16/1994 completed Not Available [facility] 03:50:44 MMR 03/20/1998 completed Not Available [facility] 03:50:45 DTaP, unspecified formulation 05/15/1994 completed Not Available [facility] 03/06/2023 03:50:45 DTaP, unspecified formulation 1993 completed Not Available [facility] 03/06/2023 03:50:45 DTaP, unspecified formulation 1993 completed Not Available [facility] 03/06/2023 03:50:45 DTaP, unspecified formulation 03/07/1994 completed Not Available [facility] 03/06/2023 03:50:45 DTaP, unspecified formulation 03/20/1998 completed Not Available [facility] 03/06/2023 03:50:45 meningococcal ACWY, unspecified formulation 09/15/2011 completed Not Available [facility] 03/06/2023 03:50:46 Td (adult), 5 Lf tetanus toxoid, preservative free, adsorbed 10/20/2016 completed Not Available [facility] 03/06/2023 03:50:46 Tdap 10/22/2018 completed Not Available [facility] 03:50:46 Tdap 11/24/2006 completed Not Available [facility] 03:50:46 Influenza, split virus, quadrivalent, PF 01/15/2021 completed Not Available [facility] 03/06/2023 03:50:47 Influenza, split virus, quadrivalent, PF 02/17/2022 completed Not Available [facility] 03/06/2023 03:50:47 Influenza, split virus, quadrivalent, PF 02/28/2019 completed Not Available [facility] 03/06/2023 03:50:48 Influenza, split virus, quadrivalent, PF 04/02/2020 completed Not Available [facility] 03/06/2023 03:50:48 Influenza, split virus, quadrivalent, preservative 03/02/2017 completed Not Available [facility] 03/06/2023 03:50:48 Influenza, split virus, quadrivalent, preservative 03/04/2018 completed Not Available [facility] 03/06/2023 03:50:48 Hib, unspecified formulation 1993 completed Not Available [facility] 03/06/2023 03:50:48 Hib, unspecified formulation 09/16/1994 completed Not Available [facility] 03/06/2023 03:50:49 Hib, unspecified formulation 1993 completed Not Available [facility] 03/06/2023 03:50:49 Hib, unspecified formulation 03/07/1994 completed Not Available [facility] 03/06/2023 03:50:49 COVID-19, mRNA, LNP-S, PF, 100 mcg/0.5mL dose or 50 mcg/0.25mL dose 08/21/2020 completed Not Available [facility] 03/06/20 03:50:49 COVID-19, mRNA, LNP-S, PF, 100 mcg/0.5mL dose or 50 mcg/0.25mL dose 09/18/2020 completed Not Available [facility] 03/06/20 03:50:49 COVID-19, mRNA, LNP-S, PF, 100 mcg/0.5mL dose or 50 mcg/0.25mL dose 04/10/2021 completed Not Available [facility] 03/06/20 03:50:50 varicella 11/24/2006 completed Not Available [facility] 03:50:50 varicella 01/21/1999 completed Not Available [facility] 03:50:50 SARS-COV-2 (COVID-19) vaccine, UNSPECIFIED 09/25/2021 completed Not Available [facility] 03/06/2023 03:50:50 Hep B, unspecified formulation 1993 completed Not Available [facility] 03/06/2023 03:50:51 Hep B, unspecified formulation 1993 completed Not Available [facility] 03/06/2023 03:50:51 Hep B, unspecified formulation 03/07/1994 completed Not Available [facility] 03/06/2023 03:50:52 Hep A, unspecified formulation 06/22/2000 completed Not Available [facility] 03/06/2023 03:50:52 Hep A, unspecified formulation 11/07/1997 completed Not Available [facility] 03/06/2023 03:50:52 influenza, unspecified formulation 01/18/2016 completed Not Available [facility] 03/06/2023 03:50:52 polio, unspecified formulation 05/15/1994 completed Not Available [facility] 03/06/2023 03:50:52 polio, unspecified formulation 1993 completed Not Available [facility] 03/06/2023 03:50:52 polio, unspecified formulation 09/15/1994 completed Not Available [facility] 03/06/2023 03:50:53 polio, unspecified formulation 03/07/1994 completed Not Available [facility] 03/06/2023 03:50:53 Influenza, split virus, quadrivalent, PF 01/23/2023 completed Not Available [facility] 05/08/2023 05:31:40 Past Encounters Encounter ID Performer Location Encounter Start Date Encounter Closed Date Diagnosis/Indication Diagnosis SNOMED-CT Code [id number] LORNA MARTINEZ APRN [address] [address] 04/24/2023 08:44:16 04/24/2023 10:09:30 Tetraplegia 43699867 Osteomyelitis 33194715 High enzym e level in serum 394365693 [id number] LORNA MARTINEZ APRN [address] [address] 07/24/2023 08:40:55 07/24/2023 09:38:18 Tetraplegia 76180454 Osteomyelitis 79014026 High enzym e level in serum 370768723 Health Concerns Section Related Observation LastModified by Organization Detai ls LastModified Time None Recorded Concern Status LastModified by Organization Details LastModified Time None Recorded Advance Directives Directive None Recorded Payers Encounter Date Sequence Insurance Name Policy Number Policy Green Covered Member ID Green Member ID Guarantor Name 04/24/2023 1 [facility] (MEDICAID) Tana Cavazos [id number] Tana Cavazos 07/24/2023 1 [facility] (MEDICAID) Tana Cavazos [id number] Tana Cavazos Notes Date Note Type Note Provider Name and Address Organization Details Recorded Time 04/24/2023 text/html HPI Notes: Is he re today for follow-up of: - FU cognitive dysfunction, quadriplegia, scoliosis with spasticity, hypotonia, leg pain, contractures, foot ulcers. Is wheelchair bound. Caregivers use pelon. Uses shower chair for bathing. Takes senna, miralax and bisacodyl PRN for her constipation. Has baclofen for her spasticity. Does not tolerate TLSO, this causes discomfort and is no longer wearing. Nystatin and interdry for skin folds and intertrigo/ skin breakdown. Frequent pressure related sores, repositioned and has padding in necessary areas. Contractures, caregivers stretch as she tolerates. - Osteomyelitis of spine. Since May. Has had inpatient stays and has been outpatient on antimicrobials. -- Had surgery 02/11/23 and was discharged 02/25. Pelvic screw revision and washout with complex plastics closure. Had a PICC line placed and was on IV antimicrobials for about 6-8 weeks. IV abx stopped 03/25/23. -- Has been working with surgeon at [facility] and ID at [facility]. -- Has elevated inflammatory markers that are gradually rising, specifically CRP and ESR -- Normal CK -- CBCD shows chronic anemia at this point, her PLT count has been elevated. WBC was normal. differential has been normal. Last checked 04/03/23 -- LFTs are elevated; initially alk phos was primarily elevated, but over the last few months her AST and ALT have been increasing. She had abdominal US done at [facility] 03/28/23 and this was normal. ID felt the elevated LFTs was r/t her APAP use and per their note recommended to decrease. -- ID 03/19, was recommended to take bactrim and if CRP did not trend down, then would need re-evaluation with imaging. -- ID 03/26/23, concerns about rising inflammatory markers. Plans was to continue repeating labs in 1-2 weeks, order CT scan, continue bactrim for suppressive. -- Had CT scan done 04/17 and showed mass like structure at level of upper sacrum that is larger than pre-surgery, it is 6cm in size. Per caregivers: Had US done for elevated LFTs. Had CT scan of her spine, shows a mass that they have not heard of. No one has called with results. They see surgeon next in 3 months. Had been off abx for 2 weeks after PICC line was pulled since ID was not getting a hold of prescribing provider. She is sleeping well. Does not usually wake during the night routinely. They have not seen any evidence of pain. Her back looks good, no redness, swelling; has healed very nicely. No fevers, chills. Appetite is poor. More picky. Has not been doing her ensure. Not drinking much fluid during the day, rarely flavored water, rarely liquids. will gag and let the fluids through her mouth or fake drink. Rarely eating jello. Will eat oatmeal and yogurt routinely urination is normal for her, holds when she wants to. Last 3 weeks are bowel movements are once per week or less. Has not been doing metamucil. Miralax once per day. Continues to do senna. skin is good, no openings, no ulcers to her heels. No yeast in folds currently. No jaundice. No chest discomfort, no SOB. No concerns about her ears. Rigidity to muscles is unchanged, bracing to the right wrist, she removes at times. Baclofen TID did help with this. LORNA MARTINEZ, [employer] [address], [place], [address], [place] [facility] 04/24/2023 10:55:28 07/24/2023 text/html HPI Notes: Is he re today for follow-up of: - FU cognitive dysfunction, quadriplegia, scoliosis with spasticity, hypotonia, leg pain, contractures, foot ulcers. Is wheelchair bound. Caregivers use pelon. Uses shower chair for bathing. Takes senna, miralax and bisacodyl PRN for her constipation. Has baclofen for her spasticity. Does not tolerate TLSO, this causes discomfort and is no longer wearing. Nystatin and interdry for skin folds and intertrigo/ skin breakdown. Frequent pressure related sores, repositioned and has padding in necessary areas. Contractures, caregivers stretch as she tolerates. - Chronic constipation. Saw gastroenterology 04/18, was recommended to get a colonoscopy, was pending consent from mother for procedure. Was recommended to trial / consider doing glycerin supp daily instead of bisacodyl as a rescue to see if this improved her bowels. Last visit with her I did recommend to restart metamucil and increase miralax to BID. - Osteomyelitis of spine. Since May. Has had inpatient stays and has been outpatient on antimicrobials. -- Had surgery 02/11/23 and was discharged 02/25. Pelvic screw revision and washout with complex plastics closure. Had a PICC line placed and was on IV antimicrobials for about 6-8 weeks. IV abx stopped 03/25/23. -- Has been working with surgeon at [facility] and ID at [facility]. -- Has elevated inflammatory markers that are gradually rising, specifically CRP and ESR -- Normal CK -- CBCD shows chronic anemia at this point, her PLT count has been elevated. WBC was normal. differential has been normal. Last checked 04/03/23 -- LFTs are elevated; initially alk phos was primarily elevated, but over the last few months her AST and ALT have been increasing. She had abdominal US done at [facility] 03/28/23 and this was normal. ID felt the elevated LFTs was r/t her APAP use and per their note recommended to decrease. -- ID 03/19, was recommended to take bactrim and if CRP did not trend down, then would need re-evaluation with imaging. -- ID 03/26/23, concerns about rising inflammatory markers. Plans was to continue repeating labs in 1-2 weeks, order CT scan, continue bactrim for suppressive. -- Had CT scan done 04/18 and showed mass like structure at level of upper sacrum that is larger than pre-surgery, it is 6cm in size. -- Phone visit with neurosurgery last 05/20, he felt the left pelvic mass was likely related to the disintegrated antibiotic impregnated beads that were placed intraoperatively. He felt symptomatically she was doing well. He was hopeful that she would not need long-term suppressive antibiotic therapy. -- Saw ID 07/18, recommendations were to continue bactrim 1 tab PO BID, FU with neurosurgery and to FU with them in 2 months. Per caregivers: Not drinking hardly anything. When she does drink it is usually ensure, sometimes flavored water or sprite but not often. Water filled fruits and veggies, still eating those. She was eating jell-o. Tana has a colo coming up. They are concerned about the colo, bowel prep. Miralax and bisacodyl. Not peeing as much, because not eating/ drinking as much. was dry from 8am-5pm. 2 lightly soaked briefs. Not super soaking as much. appetite is good. issue is fluid intake. takes meds in yogurt or pudding, crushed up typically. bowel movements are ok. 3rd day without BM she will get a supp; then will have a few good bowel movements. Miralax is BID and metamucil is daily. Needs the supp 2 times in the last 1 month. Pain has been more in the right wrist, wearing her splint. caregivers wondering about botox; thumb and fingers get stuck, tight at times. Spasms primarily to the right wrist/ hand. sometimes legs will tremor/ twitch. the increase in baclofen has not been helpful for this. Rare APAP for discomfort with good results. ears not bothering her. No issues getting abx. no issues with surgeon. plan to stop abx in July and see how she does. LORNA MARTINEZ, [employer] HELPER [address], [place], [id number], [facility]. 07/24/2023 09:32:54 OBGyn Episode No OBEpisode recorded.
--- OUTSIDE RECORDS SUMMARY | 2023-11-09 18:10 | XMS_ITS | Clinical Summary ---
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 ORDERABLES Performing Organization Address [facility] Co de Phone Number [facility] [place] [place] [address] * (ABNORMAL) Sedimentation rate (10/31/2023 4:47 AM EDT) Only the most recent of4 resultswithin the time period is included. Pathologist [facility] Sed Rate 113(H) 2 - 37 mm/hr [facility] Comment: Effective April 06, 2019 new capillary photometric technology has resulted in a change in reference ranges. It is recommended that each ESR result be reviewed with its own age appropriate reference range. Blood 10/31/2023 4:47 AM EDT 10/31/2023 4:55 AM EDT Narrative Resulting Agency Comment Spec In Lab Sharron Winters MD HEMATOLOGY ORDERABLE S Performing Organization Address [facility] Co de Phone Number [facility] [place] [address] * Magnesium (10/31/2023 4:47 AM EDT) Only the most recent of4 resultswithin the time period is included. [facility] Magnesium 0.86 0.69 - 1.07 mmol/L [facility] Blood 10/31/2023 4:47 AM EDT 10/31/2023 4:55 AM EDT Narrative Resulting Agency Comment Spec In Lab Sharron Winters MD CHEMISTRY ORDERABLES Performing Organization Address [facility] Co de Phone Number [facility] [place] [address] * (ABNORMAL) Basic Metabolic Panel (non-fasting) (10/31/2023 4:47 AM EDT) Only the most recent of4 resultswithin the time period is included. Pathologist [facility] Glucose Lvl 120 65 - 199 mg/dL [facility] Comment:Diabetes: >=200 mg/d L plus symptoms BUN 8 8 - 18 mg/dL [facility] Creatinine 0.27(L) 0.70 - 1.20 mg/dL [facility] Sodium 140 135 - 145 mmol/L [facility] Potassium 3.8 3.5 - 5.0 mmol/L [facility] Comment: Please note: ??Patients with WBC >100,000 may have falsely elevated Potassium levels. ??For accurate Potassium quantification in these patients send serum separator tube (gold top) for subsequent determinations. ??Contact the Clinical Chemistry Laboratory if there are any questions. Chloride 106 98 - 107 mmol/L [facility] CO2 23 22 - 31 mmol/L [facility] Anion Gap 11 5 - 15 mmol/L [facility] Calcium 9.2 8.5 - 10.5 mg/dL [facility] Estimated GFR 150 >=60 mL/min/1. 73 m?? [facility] Comment: This patient's estimated GFR was calculated using the 2020 CKD-EPI equation. The estimated GFR can vary from the measured GFR by up to 30% in the absence of rapidly changing kidney function. Assessment of the estimated GFR is not appropriate when creatinine concentrations are rapidly changing. For clinical situations in which a more precise estimate of GFR is necessary, consider alternative methods of GFR estimation such as a 24-hour urine creatinine clearance. Assignment of CKD stage 1-5 for patients with an eGFR near the transition point between stages may be based on clinical assessment of muscle mass and symptoms in addition to eGFR. Blood 10/31/2023 4:47 AM EDT 10/31/2023 4:55 AM EDT Narrative Resulting Agency Comment Spec In Lab Sharron Winters MD CHEMISTRY ORDERABLES [facility] [place] [address] * IR All Drainage Procedures (10/30/2023 3:23 PM EDT) Anatomical Region Laterality Modality X-Ray Angiograph y Narrative 10/30/2023 3:27 PM EDT Table formatting from the original result was not included. Images from the original result were not included. IR PROCEDURE NOTE Procedure: Paraspinal drain placement. Indication for Procedure: Per Dr. Greer, Tana Cavazos is a 28 y.o. female w/ TBI with spastic quadriplegia, CP, nonverbal, scoliosis, with history of complicated surgical fixation hardware requiring prior percutaneous drain placement for perihardware soft tissue collection. ??Additionally was recently admitted from 06/24 to 07/09 for lumbar subcutaneous abscesses and E. coli bacteremia who presents to the ED with fever, redness, warmth, and swelling spot on her back, found to have increased size of known focal collection at the lower mid posterior to the presacral region, compatible with fluid collection adjacent to sacral hardware and bone. Lucency of the underlying sacrum concerning for associated osteomyelitis. ??Orthopedic surgery was consulted and recommended and IR aspiration versus drainage to guide antibiotic therapy. Procedure events and findings: After obtaining informed consent, pt was positioned left side down on procedure table. ??Fluoroscopy performed to identify the spinal and pelvic hardware adjacent to the fluid collection on CT. ??Ultrasound in that region then showed a poorly visualized region of lower echogenicity felt to be the collection noted on CT. A site for drain placement was chosen and identified on the skin. ??The skin was marked, prepped, and local anesthesia provided with 1% lidocaine. Maximum sterile barrier technique was used throughout. ??Due to the painful nature of the procedure, patient received split doses of intravenous versed from the IR nurse while pulse, pressure, and oxygen saturation were continuously monitored. An 18 ga needle was directed into the low echogenicity region with ultrasound guidance. ??Aspiration returned purulent fluid. ??A guide wire was advanced through the needle under fluoroscopy and coiled. ??The access tract was dilated and a 10Fr locking pigtail drainage catheter was placed. Roughly 50 cc of purulent fluid was aspirated and a fluid sample sent for lab work. ??The catheter was anchored with suture and connected to bulb drainage. ?? Medications: Versed 2mg IV, 1% Lidocaine <10ccs subcutaneous. Est Blood Loss: <5cc. Complications: ??No immediate. Impression: 1. ??10 Fr paraspinal drain placement. 2. ??~50 cc purulent fluid aspirated, sample sent for lab work. 3. ??Default plan for ~4 week follow-up. ??Doubt sooner follow-up would be of use given for 3-month duration of treatment in 2022. Resident/Fellow: None. Attending: Dr. Olegario Hair performed this procedure. ? Sharron Winters MD IMG IR ORDERABLES * Anaerobic Culture (10/30/2023 3:02 PM EDT) Anaerobic Culture No anaerobic organisms isolated [facility] Fluid 10/30/2023 3:02 PM EDT 10/30/2023 3:47 PM EDT Comment:Infected seroma/absc ess lower mid posterior presacral region. Fluid culture. Narrative Resulting Agency Comment Spec In Lab Andrade Melvin MD MICROBIOLOGY - GENER AL ORDERABLES Performing Organization Address City/[facility]/ZIP Co de Phone Number [facility] [place] [place] [address] * Body Fluid Culture, Aerobic (10/30/2023 3:02 PM EDT) Body Fluid Culture Rare mixed bacterial morphotypes suggestive of normal cutaneous zenon [facility] Gram Stain Many Neutrophils seen No microorganisms seen. [facility] Fluid 10/30/2023 3:02 PM EDT 10/30/2023 3:47 PM EDT Comment:Infected seroma/absc ess lower mid posterior presacral region. Fluid culture. Narrative Resulting Agency Comment Spec In Lab Andrade Melvin MD MICROBIOLOGY - GENER AL ORDERABLES Performing Organization Address City/[facility]/ZIP Co de Phone Number [facility] [place] [place] [address] * POCT urine (10/29/2023 10:26 AM EDT) POC Urine HCG Negative POC Control Internal Controls Acceptable 10/29/2023 10:2 6 AM EDT Sharron Winters MD POINT OF CARE TEST O RDERABLES * Lactate, whole blood, send to lab [place] (10/29/2023 8:37 AM EDT) Lactate WB 1.8 0.5 - 2.2 mmol/L [facility] Blood 10/29/2023 8:37 AM EDT 10/29/2023 8:47 AM EDT Narrative Resulting Agency Comment Spec In Lab Brennan Maldonado MD CHEMISTRY ORDERABLE S Performing Organization Address City/[facility]/ZIP Co de Phone Number [facility] [place] [address] * Phosphorus (10/29/2023 8:37 AM EDT) Only the most recent of2 resultswithin the time period is included. Pathologist [facility] Phosphorus 3.6 2.5 - 4.5 mg/dL [facility] Blood 10/29/2023 8:37 AM EDT 10/29/2023 8:47 AM EDT Narrative Resulting Agency Comment Spec In Lab Brennan Maldonado MD CHEMISTRY ORDERABLE S [facility] [place] [place] [address] * (ABNORMAL) Urinalysis Microscopic Exam (10/29/2023 2:33 AM EDT) Pathologist [facility] RBC UA >100(H) 0 - 4 /HPF [facility] WBC UA 4 0 - 5 /HPF [facility] Squam Epith UA 4 <=4 /HPF [facility] Hyaline Cast UA <1 0 - 2 /LPF [facility] Comment: Interpret results with caution, microscopic results are from suboptimal specimen volume Straight Catheter Urine 10/29/2023 2:33 AM EDT 10/29/2023 2:43 AM EDT Narrative Resulting Agency Comment Spec In Lab Sharron Winters MD URINE ORDERABLES [facility] [place] [address] * (ABNORMAL) Urinalysis with reflex Culture (10/29/2023 2:33 AM EDT) Glucose UA Negative Negative mg/dL [facility] Protein UA 30(A) Negative mg/dL [facility] Bilirubin UA Negative Negative mg/dL [facility] Comment: Clinical correlation required for positive Urine Bilirubin results as false positive may occur with some drugs and drug related products. If a false positive is suspected a serum total bilirubin should be considered if clinically indicated. Urobilinogen UA Normal Normal mg/dL [facility] pH UA 6.5 5.0 - 8.0 [facility] Blood UA Large(A) Negative mg/dL [facility] Ketones UA Negative Negative mg/dL [facility] Nitrite UA Negative Negative [facility] Leukocytes UA Negative Negative mcL [facility] Appearance UA Clear Clear [facility] Spec [place] UA >=1.030(A) 1.005 - 1.030 [facility] Color UA Yellow Yellow [facility] Culture Reflexed No [facility] Straight Catheter Urine 10/29/2023 2:33 AM EDT 10/29/2023 2:43 AM EDT Narrative Resulting Agency Comment Spec In Lab Sharron Winters MD URINE ORDERABLES [facility] [place] [address] * CT Lumbar Spine w Contrast (10/28/2023 9:50 PM EDT) WORKSTATION ID [id number] RAD Anatomical Region Laterality Modality L-spine Computed Tomogra phy Impressions 10/28/2023 10:17 PM EDT Focal heterogeneous organizing collection at the lower mid posterior to the presacral region, compatible with an infected seroma/abscess. Lucency of the underlying sacrum concerning for associated osteomyelitis. Thank you for letting us participate in the care of this patient. ??If you are a health care provider and have any questions regarding this report, please contact the number below. ??For patients who have questions please contact the health care attendant that requested your imaging first. ? Electronically signed by: Enid Vargas MD, [facility] ([phone]), at 10/28/2023 10:17 PM Narrative 10/28/2023 10:17 PM EDT EXAMINATION: CT LUMBAR SPINE W CONTRAST CLINICAL HISTORY: Possible abscess in lumbar spine, has hardware in spine, infections requiring PICC Abx and IR drainage at same site TECHNIQUE: CT lumbar spine performed after the intravenous administration of contrast. Administered 100.0 ml of OMNIPAQUE 350.00 mg/ml. COMPARISON: CT lumbar spine, most recent from April 16, 2023 FINDINGS: Diagnostic quality is degraded by abnormal position related to scoliosis and streak artifact from spine fusion hardware. Scoliosis of the spine with partially imaged lower thoracic through lumbar to sacral fusion hardware is in unchanged alignment. There is no evidence of hardware fracture or loosening within limits of the study as noted. Osseous fusion of the posterior elements is again noted. No acute fracture or dislocation. There is atrophy of the body wall muscles with fatty replacement. There is a focal fluid collection along the lower mid midline extending to the presacral region, with largest collection abutting the most distal aspect of the sacral fusion hardware. The fluid collection measures approximately 8.8 x 3.2 x 6.8cm, with evidence of internal debris/heterogeneity and organization. The collection abuts the lower lumbar spine and upper sacrum, with associated osseous lucency of the right lamina, series 7 image 60, concerning for associated osteomyelitis. Partially imaged right hip dysplasia with chronic deformity of the right acetabulum and femoral head. The left hip joint is not imaged. Procedure Note Enid Vargas MD - 10/28/2023 EXAMINATION: CT LUMBAR SPINE W CONTRAST CLINICAL HISTORY: Possible abscess in lumbar spine, has hardware inspine, infections requiring PICC Abx and IR drainage at same site TECHNIQUE: CT lumbar spine performed after the intravenous administration ofcontrast. Administered 100.0 ml of OMNIPAQUE 350.00 mg/ml. COMPARISON: CT lumbar spine, most recent from April 16, 2023 FINDINGS: Diagnostic quality is degraded by abnormal position related to scoliosis and streak artifact from spine fusion hardware. Scoliosis of the spine with partially imaged lower thoracic through lumbarto sacral fusion hardware is in unchanged alignment. There is no evidenceof hardware fracture or loosening within limits of the study as noted.Osseous fusion of the posterior elements is again noted. No acute fracture or dislocation. There is atrophy of the body wall muscles with fattyreplacement. There is a focal fluid collection along the lower mid midline extending tothe presacral region, with largest collection abutting the most distal aspectof the sacral fusion hardware. The fluid collection measures approximately 8.8 x3.2 x 6.8cm, with evidence of internal debris/heterogeneity and organization.The collection abuts the lower lumbar spine and upper sacrum, withassociated osseous lucency of the right lamina, series 7 image 60, concerning for associated osteomyelitis. Partially imaged right hip dysplasia withchronic deformity of the right acetabulum and femoral head. The left hip joint isnot imaged. IMPRESSION Focal heterogeneous organizing collection at the lower mid posterior tothe presacral region, compatible with an infected seroma/abscess. Lucency ofthe underlying sacrum concerning for associated osteomyelitis. Thank you for letting us participate in the care of this patient. If youare a health care provider and have any questions regarding this report,please contact the number below. For patients who have questions please contactthe health care attendant that requested your imaging first. Electronically signed by: Enid Vargas MD, [facility]([phone]), at 10/28/2023 10:17 PM Siomara Hernandez MD IMG CT ORDERABLES from Last 3 Months Advance Directives Documents on File Type Date Recorded Patient Special Order Jeweler Expl anation Personal Special Order Jeweler 04/29/2023 4:18 PM has new guardian Personal Special Order Jeweler 04/29/2023 2:04 PM has new guardian Guardianship document 06/15/2018 11:23 AM Guardianship document 10/28/2023 7:54 PM Am dean Brown Effective 09/17/23-missing rights and responsibilities * Attempt Cardiopulmonary Resuscitation - Inpatient (Latest Code Status on File) Date Activated Date Inactivated Comments 10/30/2023 1:55 PM 11/03/2023 7:25 PM Question Answer Comments Code Status decision made by: Patient Content of discussion: full code * Attempt Cardiopulmonary Resuscitation - Inpatient Date Activated Date Inactivated Comments 10/29/2023 12:59 AM 10/30/2023 1:55 PM Question Answer Comments Code Status decision made by: Legal Guardian Name (and relationship if needed): Fannie, her le gal sarah Content of discussion: CP resuscitation * Attempt Cardiopulmonary Resuscitation - Inpatient Date Activated Date Inactivated Comments 09/26/2022 12:44 PM 09/27/2022 4:39 AM Question Answer Comments Code Status decision made by: Patient * Attempt Cardiopulmonary Resuscitation - Inpatient Date Activated Date Inactivated Comments 09/10/2022 11:14 AM 09/11/2022 4:34 AM Question Answer Comments Code Status decision made by: Patient * Attempt Cardiopulmonary Resuscitation - Inpatient Date Activated Date Inactivated Comments 08/25/2022 7:10 AM 08/26/2022 4:39 AM Question Answer Comments Code Status decision made by: Patient Care Teams Lithographic Photographer Apprentice Relationship Specialty Start Date End Date Lorna Bal APRN [address] [place] [address] PCP - General Family Medicine 05/27/18
--- OUTSIDE RECORDS SUMMARY | 2023-11-09 18:11 | XMS_ITS | Encounter Summary ---
Author Organization [facility] [place] [address] Care Team Providers Care Auto Transport Driver Name Role Phone Lorna Bal APRN Primary Care Provider [phone] Reason for Referral * Consultation (Routine) - Authorized Specialty Diagnoses / Procedures Referred By Contac t Referred To Contact Infectious Diseases Diagnoses 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 Hollie Ambriz MD [facility] [place] [address] Hollie Ambriz MD [facility] [place] [address] Referral ID Status Reason Start Date Expiration Date Visits Requested Visits Authorized [id number] Authorized Assume Subset of Care 11/02/2023 11/01/2024 1 1 * Home Health Care (Routine) - Authorized Specialty Diagnoses / Procedures Referred By Contac t Referred To Contact Diagnoses 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 Wally Rosen MD [facility] [place] [address] Home Health & [address] [place] [address] Referral ID Status Reason Start Date Expiration Date Visits Requested Visits Authorized [id number] Authorized Consult, Test & Treat 11/03/2023 05/01/2024 999 999 * Diagnostic Test (Routine) - Authorized Specialty Diagnoses / Procedures Referred By Contac t Referred To Contact Radiology Diagnoses Abscess Procedures IR Drain Check/Change/Remove Andrade Melvin MD [facility] [place] [address] [place] [address] Referral ID Status Reason Start Date Expiration Date Visits Requested Visits Authorized [id number] Authorized Specialty Service Requested 10/30/2023 05/01/2025 1 1 Reason for Visit * Reason Comments Abscess In back * Auth/Cert (Routine) Specialty Diagnoses / Procedures Referred By Contac t Referred To Contact Diagnoses Abscess Procedures EMERGENCY IPI Sharron Winters MD [facility] [place] [address] [facility] Referral ID Status Reason Start Date Expiration Date Visits Re quested Visits Authorized [id number] 1 1 Encounter Details Date Type Department Care Team (Latest Contact Info) Description 10/28/2023 8:05 PM EDT - 11/03/2023 5:25 PM EDT Hospital Encounter Medical Specialites Unit Level 1 [place] [address] Siomara Hernandez MD [facility] [place] [address] Andrade Ocampo [place] [facility] [address] [place] [address] [place] [address] [place] [address] Abscess; 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 Discharge Disposition: Home with VNA Social History Tobacco Use Types Packs/Day Years Used Date Smoking Tobacco: Never Passive Smoke Exposure: Never Smokeless Tobacco: Never Comments:NO SMOKERS IN THE H OME Alcohol Use Standard Drinks/Week Comments No 0 (1 standard drink = 0.6 oz pur e alcohol) [facility] Utilities Answer Date Recorded In the past 12 months has th e [employer], gas, oil, or water [employer] threatened to shut off services in your [...] any time in the past 12 m [facility], were you homeless or living in a senior living (including now)? No 10/29/2023 DH IPV Inpatient Questions Answer Date Recorded Does [...] on file documented as of this encounter Last Filed Vital Signs Vital Sign Reading [...] Mass Index 22.86 10/29/2023 1:01 PM EDT documented in this encounter Discharge Summaries * Wally Rosen MD - 10/30/2023 2:31 PM EDT Discharge Summary Patient Name: Tana Cavazos Patient Age: 28 y.o. Language: Russian Race: White Ethnicity: Not nor Admit date: 10/28/2023 Discharge date and time: 11/03/2023 4:34 PM Attending Physician: Wally Rosen MD Discharge Physician: WALLY ROSEN MD Follow-up Recommendations for Providers: CBC w/diff, CMP and CRP weekly while on abx Inpatient Provider Contact Information: For questions regarding this document or issues relating to this hospitalization on the Medical Service, please contact your inpatient physician through the [facility] [employer] . Issues afterhours and on weekends will be handled by the Hospitalist staff on-call. Discharge Diagnoses (Hospital Problems) and Secondary Diagnoses (Chronic Problems): Active Hospital Problems Diagnosis Abscess Resolved Hospital Problems No resolved problems to display. 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 Indication for Procedure: Per Dr. Greer, Tana Cavazos is a 28 y.o. female w/ TBI with spastic quadriplegia, CP, nonverbal, scoliosis, withhistory of complicated surgical fixation hardware requiring prior percutaneous drain placement for perihardware soft tissue collection. Additionally was recently admitted from 06/24 to 07/09 [...] the underlying sacrum concerning for associated osteomyelitis. Orthopedic surgerywas consulted and recommended and IR aspiration versus drainage to guide antibiotic therapy. Procedure events and findings: After obtaining informed consent, pt was positioned left side down on procedure table. Fluoroscopy performed to identify the spinal and pelvic hardware adjacent to the fluid collection on CT. Ultrasound in that region then showed a poorly visualized region of lower ech ogenicity felt to be the collection noted on CT. A site for drain placement was chosen and identified on the skin. The skin was marked, prepped, andlocal anesthesia provided with 1% lidocaine. Maximum sterile barrier technique was used throughout.Due to the painful nature of the procedure, patient received split doses of intravenous versed fromthe IR nurse while pulse, pressure, and oxygen saturation were continuously monitored. An 18 ga needle was directed into the low echogenicity region with ultrasound guidance. Aspiration returned purulent fluid. A guide wire was advanced through the needle under fluoroscopy and coiled. The access tract was dilated and a 10Fr locking pigtail drainage catheter was placed. Roughly 50 cc of purulent fluid was aspirated and a fluid sample sent for lab work. The catheter was anchored withsuture and connected to bulb drainage. Medications: Versed 2mg IV, 1% Lidocaine <10ccs subcutaneous. Est Blood Loss: <5cc. Complications: No immediate. Impression: 1. 10 Fr paraspinal drain placement. 2. ~50 cc purulent fluid aspirated, sample sent for lab work. 3. Default plan for ~4 week follow-up. Doubt sooner follow-up would be of use given for 3-month duration of treatment in 2022. History of Presentation: As per admitting H&P: Recently admitted from 06/24 to 07/09 for lumbar subcutaneous abscesses and E. coli bacteremia who presents to the ED with fever, redness, warmth, on her back. History was obtained from Fannie, her legal guardian. She states that Tana underwent back surgery last January, and had been on antibiotics until they were stopped in August. Fannie noticed recurrent redness and warmth in Tana's lower back, and Tana developed a fever up to 100.3??F. Lab tests at a nearby hospital showed elevated inflammatory markers. Tana was then brought to [facility], where she has been receiving her medical care. ED course: Vital signs: Temp 36, HR 110, BP 124/98, RR 19, SpO2 98% on RA Lab tests: CBC: WBC 8.7, H&H 11.9 and 36.5, platelets 525 BMP: Sodium 137, anion gap 10, BUN and creatinine 7 and 0.25 ESR >119, CRP 148 Imaging: CT Lumbar Spine w Contrast IMPRESSION Focal heterogeneous organizing collection at the lower mid posterior to the presacral region, compatible with an infected seroma/abscess. Lucency of the underlying sacrum concerning for associated osteomyelitis. Consults: Ortho recommended IR drainage to guide IV antibiotics. Hospital Course: #Infected seroma/abscess at the lower mid posterior to the presacral region #Concern for associated osteomyelitis #Hx of lumbar subcutaneous abscesses Orthopedics was consulted on admission, they recommended IR consult for drainage vs drain placementand discussion with ID for potential life-long antibiotics given signs/symptoms recrudesced not long after discontinuation of antibiotics in August. She underwent IR drain placement on 10/29 as above and afterwards was started on Ceftrixone and Daptomycin. Nasal MRSA PCR returned negative and the Daptomycin was discontinued. Her CRP steadily improved on her antibiotics and samples yielding purulent fluid however cultures remained negative ID recommended continuing CTX 2 gm IV daily for a total of 6 weeks (ending 12/11/23) with plan to likely transition back to long-term suppression with TMP-SMX. She had a PICC placed and was discharged with OPAT. #TBI with spastic quadriplegia #Cerebral palsy, nonverbal #Scoliosis s/p PSF, prior bilateral [place] Her home baclofen and acetaminophen were continued. Vital Signs at Discharge: BP: 97/65, Heart Rate: (!) 109, Temp: 36.6 ??C (97.9 ??F), Resp: 18, BMI (Calculated): 22.86 Height: 157.5 cm (5' 2) (10/29/23 1301) Weight: 56.7 kg (125 lb) (10/29/23 1301) Functional and Cognitive Status: At baseline Important Studies and Lab Data: Labs: Recent Labs 11/02/2352510/31/2344610/30/23447 WBC 7.5 5.2 6.9 HGB 11.1* 11.1* 11.3* HCT 33.8* 33.8* 34.8* PLATELET 477* 488* 432* Recent Labs 11/02/2352510/31/2344610/30/23447 NA 138 140 136 K 3.9 3.8 4.1 CL 104 106 102 CO2 21* 23 23 BUN 13 8 7* CREATININE 0.27* 0.27* 0.33* Recent Labs 11/02/23525 AST 13 ALT 27 ALKPHOS 209* BILITOT <0.2* Recent Labs 11/02/2352510/31/237 10/30/238 10/29/23 0837 10/29/23 0208 CALCIUM 9.8 9.2 9.3 9.4 -- MAGNESIUM -- 0.86 0.89 0.94 0.85 PHOS -- -- -- 3.6 3.1 Recent Labs 11/02/2352510/30/23447 CK 14 29 No results for input(s): PT, PTT, INR in the last 168 hours. Studies: Results for orders placed or performed during the hospital encounter of 10/28/23 CT Lumbar Spine w Contrast (Exam End: 10/28/2023 9:50 PM) Result Value WORKSTATION ID [id number] Impression Focal heterogeneous organizing collection at the lower mid posterior to the presacral region, compatible with an infected seroma/abscess. Lucency of the underlying sacrum concerning for associated osteomyelitis. Thank you for letting us participate in the care of this patient. If you are a health care provider and have any questions regarding this report, please contact the number below. For patients who have questions please contact the health care management specialist that requested your imaging first. Abdomen 1 view (Generic) (Exam End: 11/01/2023 10:14 PM) Result Value WORKSTATION ID [id number] Impression 1. Rectal distention with stool. 2. No evidence of obstruction. 3. Bony demineralization, LEFT hip dysplasia, Mcnair rods, severe scoliosis Thank you for letting us participate in the care of this patient. If you are a health care provider and have any questions regarding this report, please contact the number below. For patients who have questions please contact the health care management specialist that requested your imaging first. Electronically signed by: Marisela Estrella MD, [facility] ([phone]), at 11/02/2023 8:47 AM XR PICC Placement Over 5 Years with Imaging Guidance (IV Team) (Exam End: 11/03/2023 11:19 AM) Result Value WORKSTATION ID [id number] Impression Satisfactory position of left PICC. I have personally reviewed the image(s) and the resident's interpretation and agree with the findings, Deb Avery MD at 11/03/2023 11:55 AM Thank you for letting us participate in the care of this patient. If you are a health care provider and have any questions regarding this report, please contact the number below. For patients who have questions please contact the health care management specialist that requested your imaging first. Pending Studies and Lab Data: none Discharge Conditions/Prognosis: stable Discharge to: home with OPAT Updated Allergies/ADRs: Allergies Allergen Reactions Fluoxetine Other (See Comments) HIVES, HEART RACES Tegaderm [Transparent Dressings] Itching and Dermatitis Please use [id number] Cyclobenzaprine Other Reaction(s): Not available Doxycycline Other (See Comments) Cough, rash Penicillins Immunizations Given this Hospitalization: Immunization History Administered Date(s) Administered Influenza (Novel K1S4-28) Injectable 02/25/2009 Influenza Trivalent w/Preservative 04/25/2011 Influenza Vaccine, Whole 03/27/2009 Discharge Medications: Your Medications New Medications Dose Details alteplase 2 mg Recon Soln Commonly known as: Cathflo Instill reconstituted alteplase (Cathflo) 2 mg per instillation (based on volume of lumen). May repeat x1 per occlusion Quantity: 1 each Refills: PRN cefTRIAXone 1 gram injection solution Commonly known as: Rocephin Inject 2 g into the vein daily for 39 days. Estimated EOT 12/11/2023 2 g Quantity: 78 each Refills: 0 heparin flush (porcine) 10 unit/mL Solution Inject 3 mLs into the vein as needed (For Line Patency - See Instructions). FLUSH PROTOCOL WITH MEDICATIONS (SASH): Before med infusion: flush with NS 10 [...] and then heparin (10 units/mL) 3 mL 3 mL Quantity: 100 each Refills: PRN sodium chloride 0.9 % (flush) Syringe Commonly known as: BD PosiFlush Normal Saline 0.9 Inject 10 mLs into the vein as needed (For Line Patency - See Instructions). FLUSH PROTOCOL WITH MEDICATIONS (SASH): Before med infusion: flush with NS 10 [...] (10 units/mL) 3 mL. // FLUSH WITHOUT MEDICATION:Twice Daily & PRN: flush with NS 10 mL and then heparin (10 units/mL) 3 mL 10 mL Quantity: 100 each Refills: PRN Continued medications, unchanged Dose Details baclofen 10 mg tablet Commonly known as: Lioresal Take 10 mg by mouth 3 times daily. 10 mg Refills: 0 bisacodyL 10 mg Suppository Commonly known as: Dulcolax Place 10 mg rectally daily as needed (Constipation). 10 mg Refills: 0 ergocalciferoL (vitamin D2) 50,000 unit capsule Commonly known as: vitamin D2 Take 50,000 Units by mouth once a week. 50,000 Units Refills: 0 polyethylene glycoL 17 gram oral powder packet Commonly known as: Miralax Take 17 g by mouth daily. 17 g Refills: 0 senna 8.6 mg tablet Commonly known as: Senokot Take 2 tablets by mouth nightly. 2 tablet Refills: 0 STOPPED Medications nystatin 100,000 unit/gram Powder Commonly known as: MYCOSTATIN sulfamethoxazole-trimethoprim 400-80 mg tablet Commonly known as: Bactrim Smoking Status at Discharge: Social History Tobacco Use Smoking Status Never Passive exposure: Never Smokeless Tobacco Never Tobacco Comments NO SMOKERS IN THE HOME Instructions Given to Patient at Discharge: Patient Instructions Instruction after leaving the hospital Why you were hospitalized: recurrent infection in back Call your doctor or seek medical attention if you develop the following: fever, chills, increased redness or swelling Activity level: as tolerated Diet: as before Shower/Bath: Do not soak in water while drain in place Drain Care: Flush with 5cc Normal Saline twice daily Specific instructions related to your condition: Home IV antibiotics for 6 weeks Your Inpatient Doctor(s) at [facility]: Paola Carrington and Danita General Instructions None Future Appointments and Orders Future Appointments and Orders Future Appointments Provider Department Dept Phone 11/30/2023 12:50 PM [facility] IR ROOM 4 Radiology at [facility] Arrive at: [facility] [phone] Please expect a call from a radiology nurse within 3 days of your exam, you will need to follow theinstructions given at that time. Future Orders Complete By Expires IR Drain Check/Change/Remove [[id number] Custom] 11/30/2023 (Approximate) 05/31/2024 Process Instructions: Scheduling Instructions: Comments: Questions: Where will study be performed?: [facility] Radiology To be scheduled: Next available after expected date Reason for exam and clinical history: Status post paraspinal drain placement 10/30/2023, planning 4 week interval follow-up given 3-month course for drainage of same region in 2022. Exam/Procedure requested: What labs need to be collected during imaging study?: Is the patient ?: No Does patient require sedation?: Sedation rationale: Is the patient on anticoagulant / antiplatelet therapy ?: No OPAT: Order / Recommendation for Post Discharge IV Antibiotic Management [WEH522 CPT(R)] As directed Process Instructions: If no progress note charted, please enter Clinical details in comments. Scheduling Instructions: Comments: - If this order was signed greater than 72 hours prior to [facility] discharge, please call to confirm the accuracy of this order. Please Fax all results to: [facility] Program Infectious Disease Section [facility], [place] [address] FAX: - After hours, please contact the Infectious Disease Physician immigration associate at . - Line care instructions - see flush/heparin orders. Facilities may follow organizational policies/practices regarding heparin. - [facility] for medication administration/ground support equipment mechanic and catheter care/maintenance authorized. - CVC/PICC Dressing Change weekly and PRN Please use CHG or Bio Patch RN: Please care for PICC line including dressing changes weekly and prn. Please draw labs every Thursday and PRN and fax results to [facility] at [phone]. Please draw labs off PICC line. Please see [facility] for lab draw details. Please RN visit for IV ABX teaching and ongoing assessment. [facility] for Medication Administration/Hookup and catheter care/maintenance: - Teach Patient/Caregiver goals/self-monitoring/therapy administration to independence per the Nursing Care Plan. - [facility] visit frequency; initial, weekly and 2 PRN visits for complications and/or issueswith therapy for the duration of therapy. - Insert/maintain/replace/remove vascular access device as needed when clinically appropriate and per the Nursing Care Plan. ( PIV: 22 - 24 qauqe) - Change VAD dressing, extension set and needleless connector weekly and 2 PRN visits for complications and/or issues with therapy for the duration of therapy. Disinfect site with CHG or Betadine/alcohol, may use antimicrobial patch to site routinely or as needed. - If ordered, may draw labs via Central line or peripherally and flushed per orders. Questions: ID Diagnosis: Osteomyelitis and hardware infection of lower mid representative government relations to sacral region of spine S/P drain placement on 10/30 Microorganisms being treated: Unknown Special Instructions: After IV ABX, should transition back to fpc suppression with TMP-SMX Antibiotic: Ceftriaxone 2G IV Q24H Start date: 10/30/2023 Anticipated stop date: 12/11/2023 Labs: Q Thursday: CBC/Diff, CMP Q Thursday Inflammatory CRP Attending Responsible for IV Antimicrobials: Hollie Ambriz MD Referral to Home Health [[id number] Custom] As directed Process Instructions: If no progress note charted, please enter Clinical details in comments. Scheduling Instructions: Comments: Please evaluate Tana Cavazos for admission to Home Health. [address] [place] [id number] (home) [phone] (work) Date of : 1995 Inpatient DOCUMENTATION FOR VNA SERVICES (INCLUDING THOSE PATIENTS WITH MEDICARE COVERAGE REQUIRING HOME VNA SERVICES AND/OR HOSPICE SERVICES) PATIENT'S LOCATION: Tana Cavazos [address] [place] [phone] (home) Cell: Telephone Information: Enrollment Coordinator's Name: Fannie Villarreal (Guardian) [phone] (M) In discussion with the attending physician, it is certified that this patient is under their care and that they, or a Nurse Practitioner, Clinical Nurse specialist or Physician Orchid Superintendent who is working directly with them, had a face to face encounter that meets the physician face to face encounter requirements with this patient on 11/03/23 The encounter with the patient was in whole, or in part, for the following medical condition, whichis the primary reason for home health care services: recurrent paraspinal infection In discussion with the provider, it is certified that, based on their findings, the following services are medically necessary for home health services. To provide the following care/treatments with the clinical findings supporting the need for services as follows: HOME CARE ORDERS: RN ORDERS: Assess vital signs, cardiopulmonary status, nutrition, hydration, elimination -Additional Orders: Monitor medication effectiveness and management, Reinforce education regarding health issues, and Assess wound or incision (please add detailed wound care instructions here: Forward Flush drain with 5cc Normal saline BID; dry gauze dressing at tube site daily; weekly CBC, Comp Metabolic panel and CRP while on IV antibiotics; routine PICC care) HOME HEALTH CARE AGENCY: [facility] [address] [address] START OF CARE: within 24-48 hours of discharge Questions: Disciplines Requested: Nursing Recurring Lab Work Interval Expires CBC (with Diff) [[id number] Custom] Once a week until 01/03/2024 01/03/2024 Process Instructions: Scheduling Instructions: Comments: To be Drawn on Thursday. Please fax orders to [facility] ID at [phone]. Questions: Comprehensive metabolic panel (non-fasting) [LAB17 Custom] Once a week until 01/03/2024 01/03/2024 Process Instructions: Scheduling Instructions: Comments: To be Drawn on Thursday. Please fax orders to [facility] ID at [phone]. Questions: CRP, acute inflammation [[id number] Custom] Once a week until 01/03/2024 01/03/2024 Process Instructions: Scheduling Instructions: Comments: To be Drawn on Thursday. Please fax orders to [facility] ID at [phone]. Questions: Discharge References/Attachments None documented in this encounter Discharge Instructions * Patient Instructions* Wally Rosen MD - 11/03/2023 2:59 PM EDT Instruction after leaving the hospital Why you were hospitalized: recurrent infection in back Call your doctor or seek medical attention if you develop the following: fever, chills, increased redness or swelling Activity level: as tolerated Diet: as before Shower/Bath: Do not soak in water while drain in place Drain Care: Flush with 5cc Normal Saline twice daily Specific instructions related to your condition: Home IV antibiotics for 6 weeks Your Inpatient Doctor(s) at [facility]: Paola Carrington and Danita documented in this encounter Medications at Time of Discharge Medication Sig Dispensed Refills Start Date End Date cefTRIAXone (Rocephin) 1 gram injection solutionIndications:S diana abscess Inject 2 g into the vein daily for 39 days. Estimated EOT 12/11/2023 78 each 11/02/2023 12/11/2023 sodium chloride 0.9 %, flush, (BD PosiFlush Normal Saline 0.9) SyringeIndications:Sp inal abscess Inject 10 mLs into the vein as needed (For Line Patency - See Instructions). FLUSH PROTOCOL WITH MEDICATIONS (SASH): Before med infusion: flush with NS 10 [...] (10 units/mL) 3 mL 100 each 11/02/2023 heparin flush, porcine, 10 unit/mL SolutionIndications:S diana abscess Inject 3 mLs into the vein as needed (For Line Patency - See Instructions). FLUSH PROTOCOL WITH MEDICATIONS (SASH): Before med infusion: flush with NS 10 [...] (10 units/mL) 3 mL 100 each 11/02/2023 alteplase (Cathflo) 2 mg Recon SolnIndications:Spina l abscess Instill reconstituted alteplase (Cathflo) 2 mg per instillation (based on volume of lumen). May repeat x1 per occlusion 1 each 11/02/2023 bisacodyL (Dulcolax) [address] 10 mg rectally daily as needed (Constipation). ergocalciferoL, vitamin D2, (vitamin D2) 50,000 unit capsule Take 50,000 Units by mouth once a week. 01/15/2023 polyethylene glycoL (Miralax) 17 gram oral powder packet Take 17 g by mouth daily. 07/09/2022 senna (Senokot) 8.6 mg tablet Take 2 tablets by mouth nightly. baclofen (Lioresal) 10 mg tablet Take 10 mg by mouth 3 times daily. documented as of this encounter Progress Notes * Wally Rosen MD - 11/03/2023 3:21 PM EDT Hospital Medicine - Attending Day of Discharge Documentation Discharge diagnosis Active Hospital Problems Diagnosis Abscess Resolved Hospital Problems No resolved problems to display. 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 I spent >30 minutes (Day of Discharge Code 42291) involved in the final examination of the patient, discussion of the hospital stay, instructions for continuing care to all relevant caregivers, and preparation of discharge records, prescriptions and referral forms. Plans Discharge to home with OPAT Follow-up scheduled with ID Please see the Discharge Summary for complete details of any medication changes and additional plans. WALLY ROSEN MD 11/03/2023 * Wally Rosen MD - 11/02/2023 1:17 PM EDT Hospital Medicine Attending Daily Progress Note Hospital Day 4 days (10/28/2023) 24h-Interval Events & Subjective: Somewhat constipated No other acute issues Appreciate ID input, cx's neg -> 6 weeks CTX OPAT I have reviewed patient's most recent labs and imaging, pertinent findings are included in the planbelow. Assessment: Tana Cavazos is a 28 y.o. woman w/ TBI with spastic quadriplegia, CP, nonverbal, scoliosis, s/p PSF(02/2009), prior bilateral Girdlestone's-2010 who was recently admitted from 06/24 to 07/09 for lumbar subcutaneous abscesses and E. coli bacteremia who presents to the ED with fever, redness, warmth, and swelling spot on her back, found to have focal collection at the lower mid posterior to the presacral region, compatible with an infected seroma/abscess. Lucency of the underlying sacrum concerning for associated osteomyelitis. Orthopedic surgery was consulted and recommended IR drainage drainage to guide antibiotic therapy. Plan: #Infected seroma/abscess at the lower mid posterior to the presacral region #Concern for associated osteomyelitis #Hx of lumbar subcutaneous abscesses ESR >119, CRP 148 -> 133 _> 120 -> 99 Appreciate orthopedics, IR, and ID input Nasal MRSA PCR pending - d/c dapto - continue CTX 2gm IV daily x 6 weeks - PICC line - coordinate OPAT #TBI with spastic quadriplegia #Cerebral palsy, nonverbal #Scoliosis s/p PSF, prior bilateral Girdlestone Continue baclofen 10 Mg p.o. twice daily Tylenol as needed #Nutrition/Fluids: Regular diet #DVT: LMWH #Code: Attempt Cardiopulmonary Resuscitation - Inpatient #Dispo: Home with ?OPAT? IPI Certification I certify that I am a D-H credentialed attending provider with admitting privileges and that the patient meets or has met medical necessity to require an inpatient IPI level of care meeting a minimumof two midnights or is on the [facility] inpatient only procedure list (status C) due to: recurrent presacral abscess requiring drainage, IV abx, and close monitoring. WALLY ROSEN MD //Daily Patient Assessment: Comfortable in bed, nontoxic, in no distress RRR No audible wheezing, normal effort Abd soft, NT Drain site C/D/I with sero-sangious drainage in bulb. Last Weight: 56.7 kg (125 lb) Admit Weight: 56.25 kg Vitals Range last 24 hrs Temperature Temp: [36.1 ??C (97 ??F)-36.5 ??C (97.7 ??F)] Heart Rate Heart Rate: -- Blood Pressure BP: (97-126)/(66-84) Respiratory Rate Resp: [16-20] SpO2 SpO2: [98 %-99 %] Intake/Output Summary (Last 24 hours) at 11/02/2023 1317 Last data filed at 11/02/2023 0800 Gross per 24 hour Intake 537 ml Output 1180 ml Net -643 ml Infusions: IV Fluid Orders None Scheduled Medications: cefTRIAXone 2 g Intravenous Q24H polyethylene glycoL 17 g Oral Daily senna 17.2 mg Oral Nightly sodium chloride 0.9 % (flush) 5 mL Intravenous BID enoxaparin 40 mg Subcutaneous Nightly lactobacillius capsule 1 capsule Oral Daily baclofen 10 mg Oral TID PRN Medications: polyethylene glycoL (MIRALAX) oral powder AND bisacodyL AND bisacodyl EC AND lactulose AND lactulose AND magnesium citrate AND Tap water enema, acetaminophen, ondansetron, sodium chloride 0.9 % (flush), lidocaine, melatonin Labs Reviewed: Recent Labs 11/02/2352510/31/2344610/30/23447 WBC 7.5 5.2 6.9 HGB 11.1* 11.1* 11.3* HCT 33.8* 33.8* 34.8* PLATELET 477* 488* 432* Recent Labs 11/02/2352510/31/2344610/30/238 10/29/23 0837 10/29/23 0208 NA 138 140 136 140 -- K 3.9 3.8 4.1 4.2 -- CL 104 106 102 103 -- CO2 21* 23 23 26 -- BUN 13 8 7* 6* -- CREATININE 0.27* 0.27* 0.33* 0.31* -- GLUCOSE 109 120 113 96 -- ANIONGAP 13 11 11 11 -- CALCIUM 9.8 9.2 9.3 9.4 -- MAGNESIUM -- 0.86 0.89 0.94 0.85 PHOS -- -- -- 3.6 3.1 No results for input(s): POCGLU in the last 168 hours. No results for input(s): LACTATE in the last 168 hours. Recent Labs 11/02/23 0526 AST 13 ALT 27 Recent Labs 11/02/23 0526 ALKPHOS 209* BILITOT <0.2* No results for input(s): INR, PT, PTT in the last 168 hours. Recent Labs 11/02/23 0526 10/30/23 0448 CK 14 29 Recent Labs 11/02/23 0526 GLUCOSE 109 Micro: No results found for: URINECULTURE Lab Results Component Value Date/Time GRAMSTAIN Many Neutrophils seen No microorganisms seen. 10/30/2023 1502 BFCX 10/30/2023 1502 Rare mixed bacterial morphotypes suggestive of normal cutaneous zenon No results found for: BLOODCX Imaging: Results for orders placed or performed during the hospital encounter of 10/28/23 CT Lumbar Spine w Contrast (Exam End: 10/28/2023 9:50 PM) Result Value WORKSTATION ID [id number] Impression Focal heterogeneous organizing collection at the lower mid posterior to the presacral region, compatible with an infected seroma/abscess. Lucency of the underlying sacrum concerning for associated osteomyelitis. Thank you for letting us participate in the care of this patient. If you are a health care provider and have any questions regarding this report, please contact the number below. For patients who have questions please contact the health care management specialist that requested your imaging first. Abdomen 1 view (Generic) (Exam End: 11/01/2023 10:14 PM) Result Value WORKSTATION ID [id number] Impression 1. Rectal distention with stool. 2. No evidence of obstruction. 3. Bony demineralization, LEFT hip dysplasia, Mcnair rods, severe scoliosis Thank you for letting us participate in the care of this patient. If you are a health care provider and have any questions regarding this report, please contact the number below. For patients who have questions please contact the health care management specialist that requested your imaging first. Electronically signed by: Marisela Estrella MD, [facility] ([phone]), at 11/02/2023 8:47 AM ECG: No results found for: DIAGLINE, QTCCALC * Hollie Ambriz MD - 11/02/2023 1:08 PM EDT OPAT INTAKE: Diagnosis: Osteomyelitis + hardware infection, Antibiotic Type: IV, Organism(s): Unknown, Antibiotic(s) being taken: Ceftriaxone (2g daily) With a start date of 10/30/2023, and anticipated end date of 12/11/2023. Desired labs: CBC w/diff, CMP and CRP. Lab frequency: Weekly Other: Desired timing of end of therapy appointment: Week of: 12/07/2023. Other speciality appointments to coordinate with: No Dialysis patient?: No Imaging needed?: No Preferred provider for end of therapy visit: Dr. Ambriz * Hollie Ambriz MD - 11/02/2023 10:29 AM EDT Infectious Disease Service - Follow-Up Note Active ID Issue(s): - Recurrent spinal infection with underlying hardware Subjective: Caregivers feel that patient has been uncomfortable since her drain was placed but she has also been constipated. Antimicrobials: Daptomycin (10/29-) Ceftriaxone (10/29-) Vitals: Last value Range last 24 hrs Temperature Temp: 36.5 ??C (97.7 ??F) Temp: [5 ??C (41 ??F)-36.5 ??C (97.7 ??F)] Heart Rate Heart Rate: 99 Heart Rate: -- Blood Pressure BP: 99/66 BP: (96-126)/(61-84) Respiratory Rate Resp: 19 Resp: [15-20] SpO2 SpO2: 98 % SpO2: [98 %-100 %] Physical Exam: General: In no acute distress, resting in bed comfortably, pleasant Neck: Supple, trachea midline Pulmonary: Clear to auscultation listening anteriorly, no wheezes or crackles CV: Regular rate and rhythm, no murmurs Abdomen: Soft, non-distended, non-tender to palpation in all quadrants MSK: Drain in place with serosanguinous output with some debris, not frankly purulent in appearance Extremities: No peripheral edema Skin: No rashes or lesions noted on visible skin Neuro: Alert, moving upper but not lower extremities spontaneously Laboratory: Recent Labs 11/02/2352510/31/2344610/30/23447 WBC 7.5 5.2 6.9 HGB 11.1* 11.1* 11.3* HCT 33.8* 33.8* 34.8* PLATELET 477* 488* 432* Recent Labs 11/02/2352510/31/2344610/30/23447 NA 138 140 136 K 3.9 3.8 4.1 CL 104 106 102 CO2 23 BUN 13 8 7* CREATININE 0.27* 0.27* 0.33* Recent Labs 11/02/23525 AST 13 ALT 27 ALKPHOS 209* BILITOT <0.2* Microbiology: 10/30 MRSA swab - negative 10/29 Body fluid Cx - rare mixed skin zenon ... 02/11/23 OSH OR Cx - NG 08/27/22 OSH Wound Cx - rare Staph haemolyticus, rare Staph capitis 09/26/22 Abscess Cx - NG 09/26/22 Abscess fungal Cx - NG 09/26/22 Abscess AFB Cx - NG 07/31/22 BCx x2 - NG 07/30/22 BCx x1 - NG 07/28/22 BCx x2 - Pseudmonas oryzihabitans in 1/ vials 07/24/22 Body fluid Cx - NG 07/24/22 Body fluid fungal Cx - NG 07/24/22 Body fluid AFB Cx - NG 07/24/22 Abscess Cx - NG 07/22/22 Body fluid Cx - NG 07/22/22 BCx x2 - NG 07/07/22 BCx x1 - NG 07/06/22 BCx x1 - NG 07/03/22 BCx x2 - E coli in 1/4 vials (escobar-S) 07/01/22 BCx x1 - NG 06/25/22 Body fluid Cx x2 - NG 06/25/22 BCx x2 - NG Radiology/Studies/Procedures: CT of L-spine w/ IV contrast (10/28/2023) Focal heterogeneous organizing collection at the lower mid posterior to the presacral region, compatible with an infected seroma/abscess. Lucency of the underlying sacrum concerning for associated osteomyelitis. Impression: Tana Cavazos is a 28 y.o. female with Hx of cerebral palsy w/ spastic quadriplegia, non-verbal at baseline, as well as prior posterolateral spinal fusion in 2008 and bilateral Girdlestones in 2010, w/ recurrent collections around her spinal hardware that were never definitively proven to be infected, in part because Cxs were always taken after antibiotic administration. She did have transient bacteremias, including E coli in June 2022 and Pseudomonas oryzihabitans in July 2022, though it wasunknown if this correlated to the microbiology in the spine. Eventually, she underwent R pelvic srew revision and washout with complex plastics closure at [facility] in [place] on 02/11, after which she was treated with 6 weeks of IV vancomycin + pip-tazo. Then, she was placed on suppressive TMP-SMX to complete a total of ~7 months of treatment, which was eventually stopped on 09/23. She is now re-admitted with erythema and warmth at the previous incision site, w/ CT L-spine showing a reaccumulated collection with concern for underlying osteomyelitis. She is s/p IR drainage on 10/29,at which point purulent material was expressed. Cxs were obtained, and post-procedurally, she was started empirically on IV daptomycin + ceftriaxone. Unfortunately, despite the fact that she has been off of antibiotics for >1 month, patient's abscess Cxs have not revealed growth of pathogenic organisms. However, there is no doubt based on her clinical trajectory that her spinal collections are infected. Thus, I would treat her with 6 weeks ofIV ceftriaxone for a Cx-negative process, after which she should likely transition back to fpc suppression with TMP-SMX. Recommendations: - Stop daptomycin - Continue IV ceftriaxone 2g daily for a total of 6 weeks, ending on 12/11/2023 - After finishing above, should transition back to lobsterman suppression with TMP-SMX - Cleared from ID perspective for PICC placement - Check CBC w/ diff, CMP, and CRP weekly to monitor for clinical progression and antimicrobial toxicity - We will arrange ID follow-up appointment prior to completion of IV ceftriaxone I spent a total of 50 minutes on the [id number] encounter, chart review, documentation, and coordination of care. The Infectious Disease consult service will continue to follow the patient. Do not hesitate to pageID Green team with any further questions or concerns. X ID will sign off. Please contact us if further consultation required. Hollie Ambriz MD Staff Physician in Infectious Diseases * Anthony Singh RN - 11/02/2023 9:51 AM EDT During VAS Purposeful Rounding, an assessment of your patient's venous access was performed fby theVascular Access Service. The following tasks were performed if needed and communicated to the bedside RN Choose all that apply: [x] PIV(s) checked for patency if daily need for flush needs to be performed [] CVAD was checked for patency if daily flush needs to be performed [x] IV tubing clamped or capped if needed [] Visual inspection of your patient's central line dressing integrity [x] Review of indications for vascular access [] A photo was taken of your patient's central line [x] Visual inspection of your patient's IV dressing integrity [] Othe While rounding an intervention was needed and communicated to the bedside RN Choose all that apply: [] Nonocclusive IV dressing addressed [] Nonocclusive CVAD dressing (please identify type of line) [] Infusion site leaking [] IV not patent and removed [] IV not indicated [] IV placed [] IV restarted [] Implanted Port, PICC or ML dressing changed if needed (either PRN or weekly) [] Other * Wally Rosen MD - 11/01/2023 11:54 AM EDT [facility] Medicine Attending Daily Progress Note Hospital Day 3 days (10/28/2023) 24h-Interval Events & Subjective: Doing well s/p drain placement No acute events or issues Appreciate ID input On ceftriaxone and dapto pending cultures; nasal MRSA PCR pending Cultures from abscess remain NGTD CBC, CMP, CRP, CK weekly starting this Thursday and PRN. I have reviewed patient's most recent labs and imaging, pertinent findings are included in the planbelow. Assessment: Tana Cavazos is a 28 y.o. woman w/ TBI with spastic quadriplegia, CP, nonverbal, scoliosis, s/p PSF(02/2009), prior bilateral Girdlestone's-2010 who was recently admitted from 06/24 to 07/09 for lumbar subcutaneous abscesses and E. coli bacteremia who presents to the ED with fever, redness, warmth, and swelling spot on her back, found to have focal collection at the lower mid posterior to the presacral region, compatible with an infected seroma/abscess. Lucency of the underlying sacrum concerning for associated osteomyelitis. Orthopedic surgery was consulted and recommended IR drainage drainage to guide antibiotic therapy. Plan: #Infected seroma/abscess at the lower mid posterior to the presacral region #Concern for associated osteomyelitis #Hx of lumbar subcutaneous abscesses ESR >119, CRP 148 -> 133 _> 120 -> 99 Appreciate orthopedics, IR, and ID input Nasal MRSA PCR pending #TBI with spastic quadriplegia #Cerebral palsy, nonverbal #Scoliosis s/p PSF, prior bilateral Girdlestone Continue baclofen 10 Mg p.o. twice daily Tylenol as needed #Nutrition/Fluids: Regular diet #DVT: LMWH #Code: Attempt Cardiopulmonary Resuscitation - Inpatient #Dispo: Home with ?OPAT? IPI Certification I certify that I am a D-H credentialed attending provider with admitting privileges and that the patient meets or has met medical necessity to require an inpatient IPI level of care meeting a minimumof two midnights or is on the [facility] inpatient only procedure list (status C) due to: recurrent presacral abscess requiring drainage, IV abx, and close monitoring. WALLY ROSEN MD //Daily Patient Assessment: Comfortable in bed, nontoxic, in no distress RRR No audible wheezing, normal effort Abd soft, NT Drain site C/D/I with sero-sangious drainage in bulb. Last Weight: 56.7 kg (125 lb) Admit Weight: 56.25 kg Vitals Range last 24 hrs Temperature Temp: [35.7 ??C (96.3 ??F)-36.6 ??C (97.9 ??F)] Heart Rate Heart Rate: -- Blood Pressure BP: (85-107)/(59-74) Respiratory Rate Resp: [16-19] SpO2 SpO2: [97 %-99 %] Intake/Output Summary (Last 24 hours) at 11/01/2023 1154 Last data filed at 11/01/2023 0400 Gross per 24 hour Intake 355 ml Output 1410 ml Net -1055 ml Infusions: IV Fluid Orders Start Dose/Rate Route Frequency Stop 10/30/231999 DAPTOmycin (Cubicin) 450 mg in sodium chloride 0.9% 59 mL 450 mg 118 mL/hr over 30 Minutes Intravenous EVERY 24 HOURS Scheduled Medications: cefTRIAXone 2 g Intravenous Q24H DAPTOmycin 450 mg Intravenous Q24H polyethylene glycoL 17 g Oral Daily senna 17.2 mg Oral Nightly sodium chloride 0.9 % (flush) 5 mL Intravenous BID enoxaparin 40 mg Subcutaneous Nightly lactobacillius capsule 1 capsule Oral Daily baclofen 10 mg Oral TID PRN Medications: acetaminophen, ondansetron, sodium chloride 0.9 % (flush), lidocaine, melatonin Labs Reviewed: Recent Labs 10/31/2344610/30/2344710/29/23 0837 WBC 5.2 6.9 8.6 HGB 11.1* 11.3* 11.2* HCT 33.8* 34.8* 33.8* PLATELET 488* 432* 477* Recent Labs 10/31/2344610/30/2344710/29/23 0837 10/29/23 0208 NA 140 136 140 -- K 3.8 4.1 4.2 -- CL 106 102 103 -- CO2 23 23 26 -- BUN 8 7* 6* -- CREATININE 0.27* 0.33* 0.31* -- GLUCOSE 120 113 96 -- ANIONGAP 11 11 11 -- CALCIUM 9.2 9.3 9.4 -- MAGNESIUM 0.86 0.89 0.94 0.85 PHOS -- -- 3.6 3.1 No results for input(s): POCGLU in the last 168 hours. No results for input(s): LACTATE in the last 168 hours. No results for input(s): AST, ALT in the last 168 hours. No results for input(s): ALKPHOS, BILITOT, BILIDIR in the last 168 hours. No results for input(s): INR, PT, PTT in the last 168 hours. Recent Labs 10/30/23 0448 CK 29 Recent Labs 10/31/23 0447 GLUCOSE 120 Micro: No results found for: URINECULTURE Lab Results Component Value Date/Time GRAMSTAIN Many Neutrophils seen No microorganisms seen. 10/30/2023 1502 BFCX No growth to date. 10/30/2023 1502 No results found for: BLOODCX Imaging: Results for orders placed or performed during the hospital encounter of 10/28/23 CT Lumbar Spine w Contrast (Exam End: 10/28/2023 9:50 PM) Result Value WORKSTATION ID [id number] Impression Focal heterogeneous organizing collection at the lower mid posterior to the presacral region, compatible with an infected seroma/abscess. Lucency of the underlying sacrum concerning for associated osteomyelitis. Thank you for letting us participate in the care of this patient. If you are a health care provider and have any questions regarding this report, please contact the number below. For patients who have questions please contact the health care management specialist that requested your imaging first. : No results found for: DIAGLINE, QTCCALC * Wally Rosen MD - 10/31/2023 4:13 PM EDT Hospital Medicine Attending Daily Progress Note Hospital Day 2 days (10/28/2023) 24h-Interval Events & Subjective: Doing well s/p drain placement No acute events or issues Appreciate ID input On ceftriaxone and dapto pending cultures CBC, CMP, CRP, CK weekly starting this Thursday and PRN. I have reviewed patient's most recent labs and imaging, pertinent findings are included in the planbelow. Assessment: Tana Cavazos is a 28 y.o. female w/ TBI with spastic quadriplegia, CP, nonverbal, scoliosis, s/p PSF(02/2009), prior bilateral Girdlestone's-2010 who was recently admitted from 06/24 to 07/09 for lumbar subcutaneous abscesses and E. coli bacteremia who presents to the ED with fever, redness, warmth,and swelling spot on her back, found to have focal collection at the lower mid posterior to the presacral region, compatible with an infected seroma/abscess. Lucency of the underlying sacrum concerning for associated osteomyelitis. Orthopedic surgery was consulted and recommended IR drainage drainage to guide antibiotic therapy. Plan: #Infected seroma/abscess at the lower mid posterior to the presacral region #Concern for associated osteomyelitis #Hx of lumbar subcutaneous abscesses ESR >119, CRP 148 -> 133 _> 120 -> 99 Appreciate orthopedics, IR, and ID input #TBI with spastic quadriplegia #Cerebral palsy, nonverbal #Scoliosis s/p PSF, prior bilateral Girdlestone Continue baclofen 10 Mg p.o. twice daily Tylenol as needed #Nutrition/Fluids: Regular diet #DVT: LMWH #Code: Attempt Cardiopulmonary Resuscitation - Inpatient #Dispo: Home with ?OPAT? IPI Certification I certify that I am a D-H credentialed attending provider with admitting privileges and that the patient meets or has met medical necessity to require an inpatient IPI level of care meeting a minimumof two midnights or is on the [facility] inpatient only procedure list (status C) due to: recurrent presacral abscess requiring drainage, IV abx, and close monitoring. WALLY ROSEN MD //Daily Patient Assessment: Comfortable in bed, nontoxic, in no distress RRR No audible wheezing, normal effort Abd soft, NT Drain site C/D/I with sero-sangious drainage in bulb. NOTE TO THE READER: ALL INFO BELOW HERE IS AUTO-FILLED Last Weight: 56.7 kg (125 lb) Admit Weight: 56.25 kg Vitals Range last 24 hrs Temperature Temp: [35.7 ??C (96.3 ??F)-36.6 ??C (97.9 ??F)] Heart Rate Heart Rate: -- Blood Pressure BP: (90-103)/(56-68) Respiratory Rate Resp: [18-19] SpO2 SpO2: [96 %-99 %] Intake/Output Summary (Last 24 hours) at 10/31/2023 1613 Last data filed at 10/31/2023 1400 Gross per 24 hour Intake 805 ml Output 1750 ml Net -945 ml Infusions: IV Fluid Orders Start Dose/Rate Route Frequency Stop 10/30/231999 DAPTOmycin (Cubicin) 450 mg in sodium chloride 0.9% 59 mL 450 mg 118 mL/hr over 30 Minutes Intravenous EVERY 24 HOURS Scheduled Medications: cefTRIAXone 2 g Intravenous Q24H DAPTOmycin 450 mg Intravenous Q24H polyethylene glycoL 17 g Oral Daily senna 17.2 mg Oral Nightly sodium chloride 0.9 % (flush) 5 mL Intravenous BID enoxaparin 40 mg Subcutaneous Nightly lactobacillius capsule 1 capsule Oral Daily baclofen 10 mg Oral TID PRN Medications: ondansetron, sodium chloride 0.9 % (flush), lidocaine, melatonin, acetaminophen Labs Reviewed: Recent Labs 10/31/2344610/30/2344710/29/23 0837 WBC 5.2 6.9 8.6 HGB 11.1* 11.3* 11.2* HCT 33.8* 34.8* 33.8* PLATELET 488* 432* 477* Recent Labs 10/31/2344610/30/2344710/29/23 0837 10/29/23 0208 NA 140 136 140 -- K 3.8 4.1 4.2 -- CL 106 102 103 -- CO2 23 23 26 -- BUN 8 7* 6* -- CREATININE 0.27* 0.33* 0.31* -- GLUCOSE 120 113 96 -- ANIONGAP 11 11 11 -- CALCIUM 9.2 9.3 9.4 -- MAGNESIUM 0.86 0.89 0.94 0.85 PHOS -- -- 3.6 3.1 No results for input(s): POCGLU in the last 168 hours. No results for input(s): LACTATE in the last 168 hours. No results for input(s): AST, ALT in the last 168 hours. No results for input(s): ALKPHOS, BILITOT, BILIDIR in the last 168 hours. No results for input(s): INR, PT, PTT in the last 168 hours. Recent Labs 10/30/23 0448 CK 29 Recent Labs 10/31/23 0447 GLUCOSE 120 Micro: No results found for: URINECULTURE Lab Results Component Value Date/Time GRAMSTAIN Many Neutrophils seen No microorganisms seen. 10/30/2023 1502 BFCX No growth to date. 10/30/2023 1502 No results found for: BLOODCX Imaging: Results for orders placed or performed during the hospital encounter of 10/28/23 CT Lumbar Spine w Contrast (Exam End: 10/28/2023 9:50 PM) Result Value WORKSTATION ID [id number] Impression Focal heterogeneous organizing collection at the lower mid posterior to the presacral region, compatible with an infected seroma/abscess. Lucency of the underlying sacrum concerning for associated osteomyelitis. Thank you for letting us participate in the care of this patient. If you are a health care provider and have any questions regarding this report, please contact the number below. For patients who have questions please contact the health care management specialist that requested your imaging first. : No results found for: DIAGLINE, QTCCALC * Willis Calero DO - 10/31/2023 9:14 AM EDT INTERVENTIONAL RADIOLOGY Inpatient Progress Note Admitted 10/28/2023 Procedure(s): Sacral drain placement Post-procedure day: #1 Time of patient encounter: 900 24 Hour Events: - NAEO - underwent sacral drain placement with 120cc of serous/purulent material in the CARMELLA bulb Last Value 24 Hour Range Temperature 36.3 ??C (97.3 ??F) Temp: [35.7 ??C (96.2 ??F)-36.6 ??C (97.9 ??F)] Heart Rate 99 Heart Rate: [99] Blood Pressure 90/56 BP: (86-103)/(56-72) Respiratory Rate 19 Resp: [16-20] SpO2 97 % SpO2: [93 %-99 %] Physical Exam GEN No distress CARDS RRR LUNGS No wheezing, on RA ABD Non tender, nondistended, sacral drain with catheter intact and serous/purulent material in theJP bulb Drains/Tubes: Sacral drain with serous/purulent material in the CARMELLA bulb Labs: Reviewed Micro: NGTD Imaging: None New Assessment: 28 y.o. female w/ TBI with spastic quadriplegia, nonverbal, scoliosis, s/p PSF(02/2009), found to have focal collection at the lower mid posterior to the presacral region, compatible withan infected seroma/abscess. Patient underwent IR drain placement on 10/30/23. Drain catheter working well. VSS and labs stable. Micro NGTD. Remains on ceftriaxone and daptomycin. Plan: - forward flush drain catheter BID, order placed. - follow up micro - IR to sign off, please reach out for any questions or concerns, or if we can assist in any other way. - IR drain check follow up in 4 weeks ordered, sealant mixer updated. Willis Calero DO, MBA Interventional Radiology 10/31/2023 [id number] * Dimple Jimenez RN - 10/30/2023 3:33 PM EDT Called report to EUNICE Kevin at [phone] * Dimple Jimenez RN - 10/30/2023 3:04 PM EDT ANGIO NURSING DATABASE Name: Tana Cavazos Date of : 1995 AGE: 28 y.o. [address] [address] [place], [place] [address] [id number] (home) [phone] (work) Mobile: Telephone Information: Referring Provider: None REASON FOR VISIT: Order Questions Answers Is the patient on anticoagulant / antiplatelet therapy ? No,DOAC (Direct Oral Anticoagulant) Reason for exam and clinical history: #Infected seroma/abscess at the lower mid posterior to the presacral region Is the patient ? No Planned procedure: IR soft tissue aspiration/drain placement Labs to be performed day of procedure: No labs Sedation: Moderate (Conscious sedation) Prophylactic antibiotic : None Contrast: Omnipaque Additional medications for procedure: Lidocaine Planned access site: TBD Position: Supine Consent: Pending Medications to discontinue (and days held): None Case Urgency:: E- Elective IN-patient intervention within 3 days Allergies Allergen Reactions Fluoxetine Other (See Comments) HIVES, HEART RACES Tegaderm [Transparent Dressings] Itching and Dermatitis Please use [id number] Cyclobenzaprine Other Reaction(s): Not available Doxycycline Other (See Comments) Cough, rash Penicillins Pertinent PMH: 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 09/10/22 Drain removal x 2 Local only 6/2/23 Low back Fluid aspiration Midazolam 1mg IV. Caregiver Mariano in procedure w/ pt, supportive of pt and aided w/ positioning. 10/30/23 Pre-sacral drain placement IV Versed 2 mg, IV Zofran 4mg 1425 to procedure room 3 via stretcher. Onto table L side lying. All monitors, O2, safety strap in place. Meds per protocol. Laboratory Results: Lab Results Component Value Date CREATININE 0.33 (L) 10/30/2023 Lab Results Component Value Date K 4.1 10/30/2023 Lab Results Component Value Date PLATELET 432 (H) 10/30/2023 * Rebel Carrington MD - 10/30/2023 12:35 PM EDT Hospital Medicine Attending Daily Progress Note Hospital Day 1 day (10/28/2023) 24h-Interval Events & Subjective: Seen this morning prior to IR suite trip; guardian not present at the time but pt comfortable, responded hi, seemed pleased and when surveyed did not say yes to any complaints. Will consult ID pending IR drain results today. Labs stable. I have reviewed patient's most recent labs and imaging, pertinent findings are included in the planbelow. Assessment: Tana Cavazos is a 28 y.o. female w/ TBI with spastic quadriplegia, CP, nonverbal, scoliosis, s/p PSF(02/2009), prior bilateral Girdlestone's-2010 who was recently admitted from 06/24 to 07/09 for lumbar subcutaneous abscesses and E. coli bacteremia who presents to the ED with fever, redness, warmth,and swelling spot on her back, found to have focal collection at the lower mid posterior to the presacral region, compatible with an infected seroma/abscess. Lucency of the underlying sacrum concerning for associated osteomyelitis. Orthopedic surgery was consulted and recommended and IR drainage drainage to guide antibiotic therapy. Plan: #Infected seroma/abscess at the lower mid posterior to the presacral region #Concern for associated osteomyelitis #Hx of lumbar subcutaneous abscesses ESR >119, CRP 148 Patient is currently hemodynamically stable. Will continue holding off on antibiotics for now pending IR drainage Trend inflammatory markers daily Consult to orthopedics, IR, will defer ID until drain placement #TBI with spastic quadriplegia #Cerebral palsy, nonverbal #Scoliosis s/p PSF, prior bilateral Girdlestone Continue baclofen 10 Mg p.o. twice daily Tylenol as needed #Nutrition/Fluids: NPO diet (Give Meds) #DVT: LMWH #Code: Attempt Cardiopulmonary Resuscitation - Inpatient #Dispo: Home with ?OPAT? IPI Certification I certify that I am a D-H credentialed attending provider with admitting privileges and that the patient meets or has met medical necessity to require an inpatient IPI level of care meeting a minimumof two midnights or is on the [facility] inpatient only procedure list (status C) due to: IR drain of presacral abscess Rebel Carrington MD //Daily Patient Assessment: Comfortable in bed, nontoxic, in no distress RRR No audible wheezing, normal effort Abd soft, NT NOTE TO THE READER: ALL INFO BELOW HERE IS AUTO-FILLED Last Weight: 56.7 kg (125 lb) Admit Weight: 56.25 kg Vitals Range last 24 hrs Temperature Temp: [35.8 ??C (96.4 ??F)-36.7 ??C (98.1 ??F)] Heart Rate Heart Rate: -- Blood Pressure BP: (91-104)/(58-73) Respiratory Rate Resp: [16-20] SpO2 SpO2: [96 %-100 %] Intake/Output Summary (Last 24 hours) at 10/30/2023 1236 Last data filed at 10/30/2023 0908 Gross per 24 hour Intake 55 ml Output 800 ml Net -745 ml Infusions: IV Fluid Orders None Scheduled Medications: polyethylene glycoL 17 g Oral Daily senna 17.2 mg Oral Nightly sodium chloride 0.9 % (flush) 5 mL Intravenous BID enoxaparin 40 mg Subcutaneous Nightly lactobacillius capsule 1 capsule Oral Daily baclofen 10 mg Oral TID PRN Medications: sodium chloride 0.9 % (flush), lidocaine, melatonin, acetaminophen Labs Reviewed: Recent Labs 10/30/2344710/29/23 0837 10/28/23 2100 WBC 6.9 8.6 8.7 HGB 11.3* 11.2* 11.9 HCT 34.8* 33.8* 36.5 PLATELET 432* 477* 525* Recent Labs 10/30/2344710/29/23 0837 10/29/23 0208 10/28/23 2100 NA 136 140 -- 137 K 4.1 4.2 -- Not Perf CL 102 103 -- 102 CO2 23 26 -- 25 BUN 7* 6* -- 7* CREATININE 0.33* 0.31* -- 0.25* GLUCOSE 113 96 -- 88 ANIONGAP 11 11 -- 10 CALCIUM 9.3 9.4 -- 9.4 MAGNESIUM 0.89 0.94 0.85 -- PHOS -- 3.6 3.1 -- No results for input(s): POCGLU in the last 168 hours. No results for input(s): LACTATE in the last 168 hours. No results for input(s): AST, ALT in the last 168 hours. No results for input(s): ALKPHOS, BILITOT, BILIDIR in the last 168 hours. No results for input(s): INR, PT, PTT in the last 168 hours. No results for input(s): TROPONINT, CK, PROBNP in the last 168 hours. Recent Labs 10/30/23447 GLUCOSE 113 Micro: No results found for: URINECULTURE No results found for: GRAMSTAIN, BFCX, LOWERRESPCX, TISSUECX No results found for: BLOODCX Imaging: Results for orders placed or performed during the hospital encounter of 10/28/23 CT Lumbar Spine w Contrast (Exam End: 10/28/2023 9:50 PM) Result Value WORKSTATION ID [id number] Impression Focal heterogeneous organizing collection at the lower mid posterior to the presacral region, compatible with an infected seroma/abscess. Lucency of the underlying sacrum concerning for associated osteomyelitis. Thank you for letting us participate in the care of this patient. If you are a health care provider and have any questions regarding this report, please contact the number below. For patients who have questions please contact the health care management specialist that requested your imaging first. : No results found for: DIAGLINE, QTCCALC * Kristina Rodriguez RN - 10/30/2023 9:26 AM EDT IR for drain placement today for a paraspinal fluid collection; then ID will need to be consulted for results and to decide on OPAT They have requested referrals to: [address] or Note routed to a Speech Correction Consultant who will communicate referrals to facilities and provide any required information. * Rebel Carrington MD - 10/29/2023 11:50 AM EDT Hospital Medicine Attending Daily Progress Note Hospital Day 0 days (10/28/2023) 24h-Interval Events & Subjective: Soft pressures overnight; give hyaline casts on UA, expect she is likely dehydrated. Will give 1L of LR. Otherwise asymptomatic. I spoke to her legal guardian Fannie who was at bedside and night was largely uneventful, and she sometimes gets low blood pressures at home as well. Labs are also reassuring, lorraine with lactate normal. Awaiting IR consult and drain, likely tomorrow but possibly today. ID is aware of patient but will not formally consult until we have samples to guide their decision-making process. I have reviewed patient's most recent labs and imaging, pertinent findings are included in the planbelow. Assessment: Tana Cavazos is a 28 y.o. female w/ TBI with spastic quadriplegia, CP, nonverbal, scoliosis, s/p PSF(02/2009), prior bilateral Girdlestone's-2010 who was recently admitted from 06/24 to 07/09 for lumbar subcutaneous abscesses and E. coli bacteremia who presents to the ED with fever, redness, warmth,and swelling spot on her back, found to have focal collection at the lower mid posterior to the presacral region, compatible with an infected seroma/abscess. Lucency of the underlying sacrum concerning for associated osteomyelitis. Orthopedic surgery was consulted and recommended and IR drainage drainage to guide antibiotic therapy. Plan: #Infected seroma/abscess at the lower mid posterior to the presacral region #Concern for associated osteomyelitis #Hx of lumbar subcutaneous abscesses ESR >119, CRP 148 Patient is currently hemodynamically stable. Will continue holding off on antibiotics for now pending IR drainage Trend inflammatory markers daily Consult to orthopedics, IR, will defer ID until drain placement #TBI with spastic quadriplegia #Cerebral palsy, nonverbal #Scoliosis s/p PSF, prior bilateral Girdlestone Continue baclofen 10 Mg p.o. twice daily Tylenol as needed #Nutrition/Fluids: NPO diet (Give Meds) #DVT: LMWH #Code: Attempt Cardiopulmonary Resuscitation - Inpatient #Dispo: TBD IPI Certification I certify that I am a D-H credentialed attending provider with admitting privileges and that the patient meets or has met medical necessity to require an inpatient IPI level of care meeting a minimumof two midnights or is on the [facility] inpatient only procedure list (status C) due to: IR drain of presacral abscess Rebel Carrington MD //Daily Patient Assessment: Comfortable in bed, nontoxic, in no distress RRR No audible wheezing, normal effort NOTE TO THE READER: ALL INFO BELOW HERE IS AUTO-FILLED Last Weight: 56.2 kg (124 lb) Admit Weight: 56.25 kg Vitals Range last 24 hrs Temperature Temp: [36 ??C (96.8 ??F)-37.1 ??C (98.8 ??F)] Heart Rate Heart Rate: [110] Blood Pressure BP: (75-124)/(43-98) Respiratory Rate Resp: [18-20] SpO2 SpO2: [95 %-100 %] Intake/Output Summary (Last 24 hours) at 10/29/2023 1150 Last data filed at 10/29/2023 0912 Gross per 24 hour Intake 5 ml Output -- Net 5 ml Infusions: IV Fluid Orders Start Dose/Rate Route Frequency Stop 10/29/23 1151 lactated Ringers 500 mL IV bolus 250 mL/hr over 2 Hours Intravenous ONCE 10/29/23 2350 10/29/23 0755 lactated Ringers 500 mL IV bolus 500 mL/hr over 1 Hours Intravenous ONCE 10/29/23 0944 Scheduled Medications: polyethylene glycoL 17 g Oral Daily senna 17.2 mg Oral Nightly sodium chloride 0.9 % (flush) 5 mL Intravenous BID enoxaparin 40 mg Subcutaneous Nightly lactobacillius capsule 1 capsule Oral Daily lactated Ringers 500 mL IV bolus Intravenous Once baclofen 10 mg Oral TID PRN Medications: sodium chloride 0.9 % (flush), lidocaine, melatonin, acetaminophen Labs Reviewed: Recent Labs 10/29/23 0837 10/28/23 2100 WBC 8.6 8.7 HGB 11.2* 11.9 HCT 33.8* 36.5 PLATELET 477* 525* Recent Labs 10/29/23 0837 10/29/23 0208 10/28/23 2100 NA 140 -- 137 K 4.2 -- Not Perf CL 103 -- 102 CO2 26 -- 25 BUN 6* -- 7* CREATININE 0.31* -- 0.25* GLUCOSE 96 -- 88 ANIONGAP 11 -- 10 CALCIUM 9.4 -- 9.4 MAGNESIUM 0.94 0.85 -- PHOS 3.6 3.1 -- No results for input(s): POCGLU in the last 168 hours. No results for input(s): LACTATE in the last 168 hours. No results for input(s): AST, ALT in the last 168 hours. No results for input(s): ALKPHOS, BILITOT, BILIDIR in the last 168 hours. No results for input(s): INR, PT, PTT in the last 168 hours. No results for input(s): TROPONINT, CK, PROBNP in the last 168 hours. Recent Labs 10/29/23 0837 GLUCOSE 96 Micro: No results found for: URINECULTURE No results found for: GRAMSTAIN, BFCX, LOWERRESPCX, TISSUECX No results found for: BLOODCX Imaging: Results for orders placed or performed during the hospital encounter of 10/28/23 CT Lumbar Spine w Contrast (Exam End: 10/28/2023 9:50 PM) Result Value WORKSTATION ID [id number] Impression Focal heterogeneous organizing collection at the lower mid posterior to the presacral region, compatible with an infected seroma/abscess. Lucency of the underlying sacrum concerning for associated osteomyelitis. Thank you for letting us participate in the care of this patient. If you are a health care provider and have any questions regarding this report, please contact the number below. For patients who have questions please contact the health care management specialist that requested your imaging first. : No results found for: DIAGLINE, QTCCALC documented in this encounter H&P Notes * Lucho Burciaga MD - 10/30/2023 1:52 PM EDT Interventional Radiology Interval H&P: Procedure: Planned procedure: IR soft tissue aspiration/drain placement Update to H&P: The patient's history and physical exam have been reviewed and completed. There has been NO interval change from that of the pre-procedural note done within the last 30 days. Thereis NO change in the procedural plan. Meds: Current medications reviewed. No medications held. Labs: No new relevant labs. Physical Exam: General: Awake, alert, oriented Cardiovascular: Regular, Normal Pulmonary: Breath sounds clear to auscultation The planned procedure (and sedation plan if appropriate), its benefits and risks, and alternatives were discussed with the patient. The patient consented to the procedure. The indications for the procedure are still present. Pre-sedation Assessment: Sedation Plan: moderate (conscious sedation) ASA: 2: Patient with mild systemic disease Mallampati: II: tonsillar pillars are blocked by the tongue Confirm NPO status: Yes History of anesthetic complications: No Current medications reviewed: Yes Allergies reviewed: Yes * Josse Greer MD - 10/29/2023 12:25 PM EDT Images from the original note were not included. INTERVENTIONAL RADIOLOGY FOCUSED H&P and PRE-PROCEDURE NOTE: PCP: Lorna Bal APRN Referring Provider: Rebel Carrington MD Planned Procedure: Planned procedure: IR soft tissue aspiration/drain placement Procedure Indication: Chronic perihardware fluid collection Procedure Request: Interventional Radiology Service contacted by [facility] medicine at 12:15 PM regarding the procedure request below. Presenting Diagnosis/ Complaint: Tana Cavazos is a 28 y.o. female w/ TBI with spastic quadriplegia, CP, nonverbal, scoliosis, with history of complicated surgical fixation hardware requiring prior percutaneous drain placement for perihardware soft tissue collection. Additionally was recently admitted from 06/24 to 07/09 [...] the underlying sacrum concerning for associated osteomyelitis. Orthopedic surgery was consulted and recommended and IR aspiration versus drainage to guide antibiotic therapy. ROZ consulted for IR soft tissue aspiration/drain placement Past Medical/Surgical History: has no past medical history on file. has a past surgical history that includes back surgery (scoliosis repair); Hip Osteotomy (bilateral); Reconstruc Hip Socket, Resec Fem Head (80153) (08/15/2010); Apply Of Hip Casts, Two Legs (04840) (08/15/2010); Removal Deep Implant (63326) (08/15/2010); Osteotomy Femur Shaft/Supracondy (31297) (2010); Remove Spinal Canal Catheter (88351) (N/A, 05/11/2014); Remove Infusn Device/Pump (22685) (N/A, 05/11/2014); I&D, Post Spine, Lumb/Sacr/Lumbosac (03937) (N/A, 05/20/2014); Repr, Dural/Csf Leak, Not Req Laminectomy (15976) (N/A, 05/20/2014); I&D, Post Spine, Lumb/Sacr/Lumbosac (37748) (N/A, 05/26/2014); Impact Tooth Remov Comp Bony ([id number]) (N/A, 06/14/2018); Rem Imp Tooth W Mucoper Flp ([id number]) (N/A, 06/14/2018); IR All Drainage Procedures (06/25/2022); IR Drain Check/Change/Remove (07/01/2022); IR All Drainage Procedures (07/04/2022); IR All Drainage Procedures (07/24/2022); IR Drain Check/Change/Remove (08/11/2022); IR Drain Check/Change/Remove (08/25/2022); IR Drain Check/Change/Remove (09/10/2022); IR All Drainage Procedures (09/26/2022); and Colonoscopy, Biopsy (16006) (N/A, 08/05/2023). Medications: Current Outpatient Medications Medication Instructions baclofen (LIORESAL) 10 mg, Oral, 3 TIMES DAILY bisacodyL (DULCOLAX) 10 mg, Rectal, DAILY PRN ergocalciferoL (vitamin D2) (VITAMIN D2) 50,000 Units, Oral, WEEKLY polyethylene glycoL (MIRALAX) 17 g, Oral, DAILY senna (Senokot) 8.6 mg tablet 2 tablets, Oral, NIGHTLY sulfamethoxazole-trimethoprim (Bactrim) 400-80 mg tablet 1 tablet, Oral, 2 TIMES DAILY Allergies: Fluoxetine, Tegaderm [transparent dressings], Cyclobenzaprine, Doxycycline, and Penicillins Social History and Habits: Social History Tobacco Use Smoking status: Never Passive exposure: Never Smokeless tobacco: Never Tobacco comments: NO SMOKERS IN THE HOME Vaping Use Vaping status: Never Used Substance Use Topics Alcohol use: No Drug use: No Significant Family History: family history includes Cancer in her maternal grandmother; Heart Disease in her maternal grandfather. Pertinent ROS: as per HPI Labs: Lab Results Component Value Date WBC 8.6 10/29/2023 HCT 33.8 (L) 10/29/2023 PLATELET 477 (H) 10/29/2023 BUN 6 (L) 10/29/2023 CREATININE 0.31 (L) 10/29/2023 ALKPHOS 302 (H) 09/24/2023 AST 23 09/24/2023 ALBUMIN 4.6 09/24/2023 BILIDIR <0.1 04/16/2023 BILITOT 0.3 09/24/2023 ALT 49 (H) 09/24/2023 PROT 8.4 (H) 09/24/2023 K 4.2 10/29/2023 Imaging: CT lumbar spine with contrast 10/28/2023 Physical Exam: Pending (to be performed in angio the day of procedure) ASA: Pending (to be assessed in angio the day of procedure) Mallampati Class: Pending (to be assessed in angio the day of procedure) Reviewed with Attending: Dr. Self Plan: Planned procedure: IR soft tissue aspiration/drain placement Labs to be performed day of procedure: No labs Sedation: Moderate (Conscious sedation) Prophylactic antibiotic : None Contrast: Omnipaque Additional medications for procedure: Lidocaine Planned access site: TBD Position: Supine Consent: Pending Medications to discontinue (and days held): None Case Urgency:: E- Elective IN-patient intervention within 3 days Josse Greer MD PGY-6 Interventional & Diagnostic Radiology IR Team Pager: [phone] Personal Pager [phone] 10/29/2023 * Sharron Winters MD - 10/29/2023 12:07 AM EDT Inpatient Hospital Medicine - Admission Note Problem List: There are no hospital problems to display for this patient. 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 coli bacteremia who presents to the ED with fever, redness, warmth, on her back. History was obtained from Fannie, her legal guardian. She states that Tana underwent back surgery last January, and had been on antibiotics until they were stopped in August. Fannie noticed recurrent redness and warmth in Tana's lower back, and Tana developed a fever up to 100.3??F. Lab tests at a nearby hospital showed elevated inflammatory markers. Tana was then brought to [facility], where she has been receiving her medical care. ED course: Vital signs: Temp 36, HR 110, BP 124/98, RR 19, SpO2 98% on RA Lab tests: CBC: WBC 8.7, H&H 11.9 and 36.5, platelets 525 BMP: Sodium 137, anion gap 10, BUN and creatinine 7 and 0.25 ESR >119, CRP 148 Imaging: CT Lumbar Spine w Contrast IMPRESSION Focal heterogeneous organizing collection at the lower mid posterior to the presacral region, compatible with an infected seroma/abscess. Lucency of the underlying sacrum concerning for associated osteomyelitis. Consults: Ortho recommended IR drainage to guide IV antibiotics. Management: Baclofen 10 mg p.o. Review of Systems: Negative except as noted above Past Medical and Surgical History: No past medical history on file. Past Surgical History: Procedure Laterality Date BACK SURGERY scoliosis repair HIP OSTEOTOMY bilateral IR ALL DRAINAGE PROCEDURES 06/25/2022 IR All Drainage Procedures 06/25/2022 Mich Martino MD [facility] INTERVENTIONL RAD IR ALL DRAINAGE PROCEDURES 07/04/2022 IR All Drainage Procedures 07/04/2022 Mich Martino MD [facility] INTERVENTIONL RAD IR ALL DRAINAGE PROCEDURES 07/24/2022 IR All Drainage Procedures 07/24/2022 Anurag Kumar MD [facility] INTERVENTIONL RAD IR ALL DRAINAGE PROCEDURES 09/26/2022 IR All Drainage Procedures 09/26/2022 Jamaal Jenkins, DO [facility] INTERVENTIONL RAD IR DRAIN CHECK/CHANGE/REMOVE 07/01/2022 IR Drain Check/Change/Remove 07/01/2022 Jamaal Jenkins, DO [facility] INTERVENTIONL RAD IR DRAIN CHECK/CHANGE/REMOVE 08/11/2022 IR Drain Check/Change/Remove 08/11/2022 Piter Self MD [facility] INTERVENTIONL RAD IR DRAIN CHECK/CHANGE/REMOVE 08/25/2022 IR Drain Check/Change/Remove 08/25/2022 Jamaal Jenkins, [facility] INTERVENTIONL RAD IR DRAIN CHECK/CHANGE/REMOVE 09/10/2022 IR Drain Check/Change/Remove 09/10/2022 Mich Martino MD [facility] INTERVENTIONL RAD PRO APPLY OF HIP CASTS, TWO LEGS 08/15/2010 CAST APPLICATION, HIP SPICA, BOTH LEGS performed by BARRERA OLIVER at [facility] MAIN OR PRO COLONOSCOPY, BIOPSY N/A 08/05/2023 COLONOSCOPY FLEXIBLE, WITH BX (WRVU 3.56) performed by Jamar Gastelum MD at [facility] ENDOSCOPY PRO I&D, POST SPINE, LUMB/SACR/LUMBOSAC N/A 05/20/2014 @I & D, OPEN, DEEP ABSCESS, LUMBAR, SACRAL, LUMBOSACRAL performed by Freddy Isbell MD at [facility] MAIN OR PRO I&D, POST SPINE, LUMB/SACR/LUMBOSAC N/A 05/26/2014 @I & D, OPEN, DEEP ABSCESS, LUMBAR, SACRAL, LUMBOSACRAL performed by Freddy Isbell MD at [facility] MAIN OR PRO IMPACT TOOTH REMOV COMP BONY N/A 06/14/2018 SURGICAL EXTRACTIONS, REMOVAL OF IMPACTED TOOTH, COMPLETELY BONY (WRVU 1.93) performed by Keith Cotton MD at [facility] OSC PRO OSTEOTOMY FEMUR SHAFT/SUPRACONDY 08/15/2010 ??OSTEOTOMY, FEMUR SHAFT OR SUPRACONDYLAR W/O FIXATION performed by BARRERA OLIVER at [facility] MAIN OR PRO RECONSTRUC HIP SOCKET, RESEC FEM HEAD 08/15/2010 ??ACETABULOPLASTY (GIRDLESTONE), RESECTION FEMORAL HEAD, BILATERAL performed by BARRERA OLIVER [facility] MAIN OR PRO REMOVAL DEEP IMPLANT 08/15/2010 REMOVAL IMPLANT, DEEP, BRUNO performed by BARRERA OLIVER at [facility] MAIN OR PRO REMOVAL ERUPTED TOOTH WITH ELEVATION OF MUCOPERIOSTEAL FLAP N/A 06/14/2018 SURGICAL EXTRACTIONS REQUIRING ELEVATION OF MUCOPERIOSTEAL FLAP AND REMOVAL OF BONE OR SECTION OF TOOTH (WRVU 1.09) performed by Keith Cotton MD at [facility] PRO REMOVE INFUSN DEVICE/PUMP N/A 05/11/2014 REMOVAL OF SPINE INFUSION PUMP performed by Jamaal Samuel MD at [facility] MAIN OR PRO REMOVE SPINAL CANAL CATHETER N/A 05/11/2014 REMOVAL OF INTRATHECAL OR EPIDURAL CATHETER performed by Jamaal Samuel MD at [facility] MAIN OR PRO REPR, DURAL/CSF LEAK, NOT REQ LAMINECTOMY N/A 05/20/2014 @REPAIR DURAL\CSF LEAK,NOT REQUIRING LAMINECTOMY performed by Freddy Isbell MD at [facility] MAIN OR Prior To Admission Medications: (Not in a hospital admission) Allergies: Allergies Allergen Reactions Fluoxetine Other (See Comments) HIVES, HEART RACES Tegaderm [Transparent Dressings] Itching and Dermatitis Please use [id number] Cyclobenzaprine Other Reaction(s): Not available Doxycycline Other (See Comments) Cough, rash Penicillins Family History: Family History Problem Relation Age of Onset Cancer Maternal Grandmother Heart Disease Maternal Grandfather Social History and Habits: Social History Socioeconomic History Marital status: Single Spouse name: Not on file Number of children: Not on file Years of education: Not on file Highest education level: Not on file Occupational History Not on file Tobacco Use Smoking status: Never Passive exposure: Never Smokeless tobacco: Never Tobacco comments: NO SMOKERS IN THE HOME Vaping Use Vaping status: Never Used Substance and Sexual Activity Alcohol use: No Drug use: No Sexual activity: Not on file Other Topics Concern Not on file Social History Narrative Not on file Social Determinants of Health Financial Resource Strain: Low Risk (02/21/2023) Received from [employer] Overall Financial Resource Strain (CARDIA) Difficulty of Paying Living Expenses: Not very hard Food Insecurity: Unknown (02/21/2023) Received from [employer] Hunger Vital Sign Worried About Running Out of Food in the Last Year: Never true Ran Out of Food in the Last Year: Not on file Transportation Needs: No Transportation Needs (02/21/2023) Received from [employer] PRAPARE - Transportation Lack of Transportation (Medical): No Lack of Transportation (Non-Medical): No Physical Activity: Not on file Intimate Partner Violence: Unknown (02/21/2023) Received from [employer] Humiliation, Afraid, Rape, and Kick questionnaire Fear of Current or Ex-Partner: No Emotionally Abused: Not on file Physically Abused: Not on file Sexually Abused: Not on file Housing Stability: Unknown (02/21/2023) Received from [facility] Housing Stability Vital Sign Unable to Pay for Housing in the Last Year: Not on file Number of Places Lived in the Last Year: Not on file Unstable Housing in the Last Year: No Immunizations: Immunization History Administered Date(s) Administered Influenza (Novel [id number]) Injectable 02/25/2009 Influenza Trivalent w/Preservative 04/25/2011 Influenza Vaccine, Whole 03/27/2009 Physical Exam: Last Set of Vitals and range of vitals over past 24 hours: Last value Range last 24 hrs Temperature Temp: 36 ??C (96.8 ??F) Temp: [36 ??C (96.8 ??F)] Heart Rate Heart Rate: (!) 110 Heart Rate: [110] Blood Pressure BP: (!) 124/98 BP: (124)/(98) Respiratory Rate Resp: 19 Resp: [19] SpO2 SpO2: 98 % SpO2: [98 %] Body mass index is 22.68 kg/m??. Physical Exam Constitutional: General: She is not in acute distress. HENT: Head: Normocephalic and atraumatic. Mouth/Throat: Pharynx: Oropharynx is clear. Eyes: Extraocular Movements: Extraocular movements intact. Pupils: Pupils are equal, round, and reactive to light. Cardiovascular: Rate and Rhythm: Normal rate and regular rhythm. Pulmonary: Effort: No respiratory distress. Breath sounds: No wheezing. Abdominal: General: There is no distension. Tenderness: There is abdominal tenderness. Musculoskeletal: Cervical back: No rigidity or tenderness. Comments: b/l contracted LE Skin: Coloration: Skin is not jaundiced or pale. Findings: Erythema present. Comments: lower back with erythema Neurological: Mental Status: Mental status is at baseline. Laboratory (Last 24 Hours): Recent Results (from the past 24 hour(s)) Basic Metabolic Panel (non-fasting) Result Value Ref Range Glucose Lvl 88 65 - 199 mg/dL BUN 7 (L) 8 - 18 mg/dL Creatinine 0.25 (L) 0.70 - 1.20 mg/dL Sodium 137 135 - 145 mmol/L Potassium Not Perf 3.5 - 5.0 Chloride 102 98 - 107 mmol/L CO2 25 22 - 31 mmol/L Anion Gap 10 5 - 15 mmol/L Calcium 9.4 8.5 - 10.5 mg/dL Estimated GFR 153 >=60 mL/min/1.73 m?? Sedimentation rate Result Value Ref Range Sed Rate >119 (H) 2 - 37 mm/hr CRP, acute inflammation Result Value Ref Range CRP 148.3 (H) <=4.9 mg/L Hemogram Result Value Ref Range WBC 8.7 4.0 - 9.5 x10(3)/mcL RBC 4.28 4.00 - 5.21 x10(6)/mcL Hemoglobin 11.9 11.7 - 15.5 g/dL Hematocrit 36.5 35.7 - 45.8 % MCV 85.3 82.6 - 94.4 fL MCH 27.8 27.1 - 32.0 pg MCHC 32.6 31.7 - 35.0 g/dL Platelets 525 (H) 145 - 357 x10(3)/mcL RDWSD 43.8 37.0 - 46.0 fL RDWCV 14.2 (H) 11.5 - 14.1 % MPV 9.2 7.6 - 12.9 fL nRBC % Auto 0.0 % nRBC Abs Auto 0.000 0.000 - 0.000 x10(3)/mcL Differential, Automated Result Value Ref Range Neutrophils % 66.3 % Neutr Abs (ANC) 5.75 1.70 - 6.10 x10(3)/mcL Lymphocytes % 24.1 % Lymphocytes Abs 2.1 0.9 - 3.2 x10(3)/mcL Monocytes % 7.2 % Monocyte Abs 0.6 0.3 - 0.9 x10(3)/mcL Eosinophils % 1.4 % Eosinophils Abs 0.1 0.0 - 0.4 x10(3)/mcL Basophils % 0.5 % Basophils Abs 0.0 0.0 - 0.1 x10(3)/mcL Immature Gran % 0.50 % Debora Gran Abs 0.04 0.00 - 0.04 x10(3)/mcL Assessment and plan: Tana Cavazos is a 27 y.o. 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 coli bacteremia who presents to the ED with fever, redness, warmth, and swelling spot on her back, found to have focal collection at the lower mid posteriorto the presacral region, compatible with an infected seroma/abscess. Lucency of the underlying sacrum concerning for associated osteomyelitis. Orthopedic surgery was consulted and recommended and IR drainage drainage to guide antibiotic therapy. #Infected seroma/abscess at the lower mid posterior to the presacral region #Concern for associated osteomyelitis #Hx of lumbar subcutaneous abscesses ESR >119, CRP 148 Patient is currently hemodynamically stable. Will continue holding off on antibiotics for now pending IR drainage Trend inflammatory markers daily Consult to orthopedics and ID #TBI with spastic quadriplegia #Cerebral palsy, nonverbal #Scoliosis s/p PSF, prior bilateral Girdlestone Continue baclofen 10 Mg p.o. twice daily Tylenol as needed # Bundle FENGI: Regular diet DVT Prophylaxis: LMWH Anticipated Disposition: fpc care facility Code Status: Attempt Cardiopulmonary Resuscitation - Inpatient A copy of this document will be sent to the patient's Primary Care Physician and/or Referring Physician. Sharron Winters MD 10/29/2023 documented in this encounter Procedure Notes * Margie Bucio, EUNICE - 11/03/2023 11:28 AM EDTAssociated Order(s): PLACE PICC LINE: CONTACT VASCULAR ACCESS PICC/Midline Insertion Procedure Note Indications: Anti-infective This [...] procedure, the patient's identity, intended procedure, site/side, correctpatient positioning and presence of the site aleisha was confirmed as applicable. The medical history and chart were reviewed to rule out potential contraindications to the planned procedure. Hand Hygiene: The billet sawyer did perform hand hygiene prior to line insertion. Catheter type: PICC Lot number: [id number] Procedure Technique: Skin was prepped with chlorhexidine. [...] placement. A 4 Fr. single lumen Bard catheter was placed into the left basilic [...] Successful PICC placement. Margie Bucio RN 11/03/2023 * Andrade Melvin MD - 10/30/2023 3:13 PM EDT Images from the original note were not included. IR PROCEDURE NOTE Procedure: Paraspinal drain placement. Indication for Procedure: Per Tana Olivera Dirk is a 28 y.o. female w/ TBI with spastic quadriplegia, CP, nonverbal, scoliosis, withhistory of complicated surgical fixation hardware requiring prior percutaneous drain placement for perihardware soft tissue collection. Additionally was recently admitted from 06/24 to 07/09 [...] the underlying sacrum concerning for associated osteomyelitis. Orthopedic surgerywas consulted and recommended and IR aspiration versus drainage to guide antibiotic therapy. Procedure events and findings: After obtaining informed consent, pt was positioned left side down on procedure table. Fluoroscopy performed to identify the spinal and pelvic hardware adjacent to the fluid collection on CT. Ultrasound in that region then showed a poorly visualized region of lower ech ogenicity felt to be the collection noted on CT. A site for drain placement was chosen and identified on the skin. The skin was marked, prepped, andlocal anesthesia provided with 1% lidocaine. Maximum sterile barrier technique was used throughout.Due to the painful nature of the procedure, patient received split doses of intravenous versed fromthe IR nurse while pulse, pressure, and oxygen saturation were continuously monitored. An 18 ga needle was directed into the low echogenicity region with ultrasound guidance. Aspiration returned purulent fluid. A guide wire was advanced through the needle under fluoroscopy and coiled. The access tract was dilated and a 10Fr locking pigtail drainage catheter was placed. Roughly 50 cc of purulent fluid was aspirated and a fluid sample sent for lab work. The catheter was anchored withsuture and connected to bulb drainage. Medications: Versed 2mg IV, 1% Lidocaine <10ccs subcutaneous. Est Blood Loss: <5cc. Complications: No immediate. Impression: 1. 10 Fr paraspinal drain placement. 2. ~50 cc purulent fluid aspirated, sample sent for lab work. 3. Default plan for ~4 week follow-up. Doubt sooner follow-up would be of use given for 3-month duration of treatment in 2022. Resident/Fellow: None. Attending: Dr. Olegario Hair performed this procedure. documented in this encounter ED Notes * Buster Kennedy - 10/29/2023 2:25 AM EDT @0215 PT transferred from ED29 to ED32. PT transferred from stretcher to hospital bed. Dirty linen removed. PT resting comfortably. * James Frederick MD - 10/28/2023 9:52 PM EDT ED Resident Note HPI: Tana Cavazos is a 28 y.o. female traumatic brain injury with resultant spastic quadriplegia, scoliosis status post spinal surgery with implant, chronic contractures on baclofen and prior abscess in low back overlying prior surgical site who presents to the Emergency Department with their caregiverand guardian with concerns regarding a subjective fever and chills at home, new redness, swelling, pain in the low back overlying the surgical scar at the same location of the prior abscess noted since Thursday. They are unclear if Thursday was the first day that this was present that, they were both out of town for 4 days before that but noticed it for the first time on Thursday. Unclear as to changesin neurofunction and lower extremities given baseline quadriplegia. Tmax 100.3, CRP was 13 on outpatient blood draw. Patient was referred to [facility] by infectious disease for a CT of the lumbar spine aswell as consultation with IR for aspiration for culture directed antibiotics. No vomiting, no diarrhea, no other changes from patient's normal baseline per caregiver. ROS as per HPI Vitals: ED Triage Vitals [10/28/232000] BP: (!) 124/98 Heart Rate: (!) 110 Resp: 19 Temp: 36 ??C (96.8 ??F) Temp src: Temporal SpO2: 98 % O2 Device: RA O2 Flow Rate (L/min): n/a Physical Exam Vitals and nursing note reviewed. Exam conducted with a outbound telemarketer present. HENT: Head: Normocephalic and atraumatic. Cardiovascular: Rate and Rhythm: Regular rhythm. Tachycardia present. Pulses: Normal pulses. Heart sounds: Normal heart sounds. Pulmonary: Effort: Pulmonary effort is normal. Breath sounds: Normal breath sounds. Abdominal: General: Abdomen is flat. There is no distension. Palpations: Abdomen is soft. There is no mass. Tenderness: There is no abdominal tenderness. There is no guarding. Skin: General: Skin is warm. Capillary Refill: Capillary refill takes less than 2 seconds. Findings: Erythema present. Comments: Erythema in high sacral and lower lumbar spine at midline, fluctuant mass, blanchable, hot at site of prior abscess Neurological: Mental Status: She is alert. Comments: Patient is neuro exam is difficult to assess secondary to baseline inability to communicate, has muscular spasticity in upper extremities, flaccid paralysis in lower extremities at baseline ED Course: I have reviewed labs and imaging, images and available reports, and they are significant for: ED Course as of 10/29/2321Oct 28, 20232138 Sed Rate(!): >119 2138 WBC: 8.[address] Lumbar Spine w Contrast Lumbar abscess vs possible infection fluid collection overlying known hardware at site of prior abscess. Concern for osteomyelitis in underlying sacrum. 2232 CRP(!): 148.3 CT Lumbar Spine w Contrast Final Result Focal heterogeneous organizing collection at the lower mid posterior to the presacral region, compatible with an infected seroma/abscess. Lucency of the underlying sacrum concerning for associated osteomyelitis. Thank you for letting us participate in the care of this patient. If you are a health care provider and have any questions regarding this report, please contact the number below. For patients who have questions please contact the health care management specialist that requested your imaging first. Procedures Assessment and Plan: 28 y.o. female with history of abscess in her lower back overlying mechanical hardware and spine. Presenting with fevers, new swelling and erythema suggestive of an abscess at the same site. CT of the lumbar spine with contrast did demonstrate a possible abscess versus seroma with infection overlying the site of prior infection. Patient was discussed with spine surgery, they felt that there was no indication at this point in time for surgical management, will continue to follow the patient. Patient was also discussed with IR, will plan for a IR drainage for culture and antibiotic selection tomorrow morning. Patient to be admitted to hospital medicine while awaiting these procedures. Patientdoes not have any evidence of sepsis at this time, normal vital signs, no tachycardia, Tmax at 96 8in the emergency department. No antibiotics started at this time given desire for aspiration prior to initiation. Discussed all of these results and proposed plan with the family, they were comfortable with admission. Patient advised to be n.p.o. at midnight, caregiver understands. Signed out to Dr. Soria awaiting admission to hospital medicine. James Frederick MD Resident 10/29/239 Associated attestation - Siomara Hernandez MD - 10/29/2023 11:14 AM EDT ED ATTENDING ATTESTATION NOTE The patient was seen in conjunction with the resident physician. I have independently performed thekey portions of the history and physical exam. I have reviewed the diagnostic studies including labs, imaging studies and EKGs. I have discussed the details of the case with the resident and agree with the assessment and plan as described in the resident note unless noted below or in my separate note. Brief Summary: 28 y.o. female with TBI, spastic quadriplegia, scoliosis s/p fixation c/b multiple madonna hardware fluid collection treated as likely infections on fpc antibiotics currently Bactrim presenting with about 5 days of redness, swelling, tenderness at midline lumbar region, unclear if painful, interm ittently. Borderline fever. Outpatient labs with increasing CRP, referred by ID for further workup.Patient awake alert, interactive, in no apparent distress. Spastic extremities, moving upper extremities symmetrically. Limited neurologic exam at baseline. Afebrile, normotensive no tachycardia. Midline lumbar surgical incision scar with mild 6 cm region of erythema no spreading erythema no streaki ng mild warmth and ballotable no marked fluctuance. Plan for labs including CBC inflammatory markers and CT lumbar spine. Notable for marked increase of inflammatory markers. CT lumbar spine with lumbar fluid collection and concern for osteomyelitis. Plan to engage spine surgery, IR and admit to medicine for further management. * Kristel Oneil RN - 10/28/2023 8:30 PM EDT 2020 introduced self and role to pt and family/caretakers at bedside. Pt is baseline nonverbal dt TBI in infancy. pleasant mood, calm and cooperative. Attempted to place ultrasound line in left upperarm. Paged IV team for assistance with IV placement. * Esteban King APRN - 10/28/2023 7:57 PM EDT Patient Name: Tana Cavazos Patient : 1995 Encounter Date: 10/28/2023 Brief Provider Triage Note 28 y.o. female presents to the emergency department with prior back surgery, complicated by abscessrequiring surgery. Initially surgery believed to be at [facility]. Was on antibiotics until a month ago. Now with ht spot in back, called ID and they recco she come in. Tmax 100.3. Also previous baclofen pump explant c/b infection in 2015. Here with Fannie her legal guardian (paperwork just updated by registration). Brief focused physical exam notable for alert female, in wheelchair, limited verbalization, increased tone in extremities. BP (!) 124/98 Pulse (!) 110 Temp 36 ??C (96.8 ??F) (Temporal) Resp 19 Wt 56.2 kg (124 lb) SpO2 98% BMI 22.68 kg/m?? Plan: labs and U/A with reflex culture Patient requires further evaluation, diagnosis and management in the emergency department. Esteban King APRN 10/28/232002 documented in this encounter Miscellaneous Notes * Plan of Care - Diandra Luo RN - 11/03/2023 5:24 PM EDT OUTCOME EVALUATION NOTE: OUTCOME SUMMARY: Pt alert, MARYA orientation (Pt minimally verbal). Pt continues to be tachycardic, other VSS on RA. Assessment as filed, see doc flowsheets. Pt had PICC placed today, see vascular note. Teaching for OPAT given by EUNICE Armstrong. CARMELLA drain flushed per orders. Tele in sinus tach. Meds given per JUN orders. AVS reviewed with caregiver, questions answered and encouraged. Patient belonging's returned. Pt d/c home with services. CARE PLAN GOAL OUTCOME EVALUATION: Problem: Adult Inpatient Plan of Care Goal: Plan of Care Review Outcome: Outcome (s) achieved Goal: Patient-Specific Goal (Individualized) Description: Patient will rest at least 3 hours uninterrupted. Outcome: Outcome (s) achieved Goal: Absence of Hospital-Acquired Illness or Injury Outcome: Outcome (s) achieved Goal: Optimal Comfort and Wellbeing Outcome: Outcome (s) achieved Goal: Readiness for Transition of Care Outcome: Outcome (s) achieved Problem: Infection Goal: Absence of Infection Signs and Symptoms Outcome: Outcome (s) achieved Problem: Skin Injury Risk Increased Goal: Skin Health and Integrity Outcome: Outcome (s) achieved Problem: Impaired Wound Healing Goal: Optimal Wound Healing Outcome: Outcome (s) achieved Problem: Fall Injury Risk Goal: Absence of Fall and Fall-Related Injury Outcome: Outcome (s) achieved * Plan of Care - Margie Bucio RN - 11/03/2023 11:27 AM EDT Images from the original [place] [address] [facility] Vascular Access Service Peripherally Inserted Central Catheter (PICC) Teaching Sheet Peripherally inserted central catheters ([id number]) (PICC) are used when you need IV (intravenous) medicines and fluids. A catheter is a small flexible plastic tube. The catheter is put in througha vein under your skin. A vein is a tube inside your body that carries blood from the body to the heart. The catheter is usually put into a vein on the inside of your upper arm. Then it is threaded up this vein and ends in the blood vessel near your heart. The PICC catheter may be used for taking blood for laboratory tests. You may also get IV fluids andmedicines quickly and easily. Having the catheter may keep your arm from being stuck many times with a needle. The catheter will have 1-3 small tails (tubes) coming from your arm where the catheter was put in. Why do I need a PICC line or midline catheter? PICC lines are used for lobsterman treatments. PICC lines may be used for up to a year. They are often put in to give you IV medicines at home. You may need a PICC catheter because caregivers cannot use smaller veins in your body. Smaller veins may be damaged, or they may have poor blood flow. Catheters are also used in case of emergency when you would need medicines or fluids very quickly. The following are medicines and treatments you may get when you have a PICC line. ?? Antibiotics. These are medicines to prevent infection. ?? Frequent blood sample collection. ?? IV medicines that would make your smaller veins sore or damaged. ?? Receiving IV fluids for a long period of time. ?? Pain medicine. ?? Total Parenteral Nutrition: This is also called TPN. TPN is a special liquid food that goes directly into your veins. ?? Blood ?? Chemotherapy (Medicine for cancer) What are the benefits of having a PICC line put in? Having a PICC line may keep your arm from being stuck many times with a needle to draw blood or start an IV (intravenous catheter) . Through a PICC catheter, you may have blood taken for tests. You may also get IV fluids and medicines quickly and easily. Small veins can be damaged or irritated by certain drugs or nutritional solutions. A PICC line helps to decrease vein irritation from antibiotics, IV pain drugs, or IV cancer drugs. A PICC line can be left in place when you go home. If you go home with a PICC line in place, home care can be set up via the nurse [employer] to help you. What are possible complications of having a PICC line put in? Some possible complications are: bruising, swelling, or infection in the arm with the PICC line mal-positioned catheter (catheter tip in wrong place) occlusion (blocked catheter) mechanical phlebitis (vein irritation) and thrombosis (clot) Your doctor is the person you should talk to if you have questions about what would happen if you do not choose to have a PICC line put in. Your doctor can talk to you about other choices you may have. What should I expect when it is put in? A written consent that gives you're ok to have it put in needs to be signed after you understand that you are going to have a PICC put in, and all your questions about the procedure have been answered to your satisfaction. This is a safety feature that the hospital practices before doing procedures. An experienced nurse who has been through special training and education will be putting this catheter in. The procedure is done in a specially equipped room in Interventional Radiology on the third floor. The PICC nurse will first talk to you about any questions that you may have. The PICC nurse will explain to you what is going to be done before starting. Once you arrive in the procedure room in Interventional Radiology, the PICC nurse will then set up for the procedure. She will unwrap the sterile kit and open the needed supplies. A gown and mask andgloves will be worn while putting it in. An ultrasound machine will be used to help guide the catheter in the right place. This machine uses a handle with sound waves to find the vein. The area on your arm where the catheter will be put in is then numbed with a medicine put under your skin with a tiny needle. The nurse will then put in the catheter using fluoroscopy (a type of x-ray) as a guide. Once the catheter is in your vein, it will be threaded up your arm to the area beforeyour heart. While it is being threaded, you may be asked to turn your head. When the catheter is in, the nurse will place a small dressing on the site along with a little jacques which will help keep the catheter in place. After the procedure is done, a radiologist (doctor in x-ray department) will look at your x-ray to make sure that the end of the catheter is in proper position to give your fluids and/or medications. What should I expect in the care of my PICC? A dressing that is specially made to prevent infections will be put on. After this, the dressing will only be changed once a week unless it needs it sooner. If you go home with the catheter in, you may take a shower as long as you keep the site dry. You can do this by wearing a specially fitted PICC protector that will be provided to you before dischargefrom the hospital. The dressing at the site must be kept clean and dry. It is important that you watch for signs of infection at the site. Your healthcare provider should be notified if these occur: Redness Swelling Pus Pain at the site Other reasons to notify your healthcare provider are: Catheter becomes partially or totally removed Unable to infuse medication/fluid Unable to draw back blood from the catheter. This may be an early sign that a clot is forming on the end of the catheter. If this occurs, a medicine called Cathflo may be used to dissolve this clot. Ask the PICC nurse or your doctor, any questions you may have so you feel secure in consenting to having a PICC line. References: Vascular Access Device Selection, Insertion, and Management, [employer] 01/29. A Review of the Efficacy, Safety, Use, and Administration of Cathflo, [employer] 2005 * Plan of Care - Arielle Patino RN - 11/03/2023 3:34 AM EDT OUTCOME EVALUATION NOTE: OUTCOME SUMMARY: Pt tachy. MD alerted. Otherwise VSS on RA. Pt nonverbal. Unable to answer orientation questions. Residential Sales Rep at bedside. 1x BM this shift. CARMELLA drain dressing C/D/I. See I&O. Tele in place. Assessment as charted. Medication given per JUN. Safety maintained. Care ongoing. PLAN MOVING FORWARD: Monitor I&O PICC IV abx D/C planning. INDIVIDUALIZED FALL PREVENTION INTERVENTIONS: Patient-specific fall risk factors per assessment: [current deficits]: Quadriplegia, nonverbal, IV sites, Hospital; environment. Assistance [level of assistance required for transfers and ambulation]: 2X Assist Supervision [direct monitoring required during toileting and ADLs]: Eyes/ hands on Surveillance [continuous indirect monitoring]: Call fay within reach, bed alarm in place, room near nursing station, purposeful rounding. Patient-specific fall prevention interventions for sensory deficits provided, if applicable: [X] N/A CARE PLAN GOAL OUTCOME EVALUATION: Problem: Adult Inpatient Plan of Care Goal: Plan of Care Review Outcome: Ongoing (Interventions Implemented as Appropriate) Goal: Patient-Specific Goal (Individualized) Description: Patient will rest at least 3 hours uninterrupted. Outcome: Ongoing (Interventions Implemented as Appropriate) Goal: Absence of Hospital-Acquired Illness or Injury Outcome: Ongoing (Interventions Implemented as Appropriate) Goal: Optimal Comfort and Wellbeing Outcome: Ongoing (Interventions Implemented as Appropriate) Goal: Readiness for Transition of Care Outcome: Ongoing (Interventions Implemented as Appropriate) Problem: Infection Goal: Absence of Infection Signs and Symptoms Outcome: Ongoing (Interventions Implemented as Appropriate) Problem: Skin Injury Risk Increased Goal: Skin Health and Integrity Outcome: Ongoing (Interventions Implemented as Appropriate) Problem: Impaired Wound Healing Goal: Optimal Wound Healing Outcome: Ongoing (Interventions Implemented as Appropriate) Problem: Fall Injury Risk Goal: Absence of Fall and Fall-Related Injury Outcome: Ongoing (Interventions Implemented as Appropriate) * Consult Note - Rito Brown RN - 11/02/2023 7:44 PM EDTSummary: Turnback Patient Turn Back/PICC Consultation This patient has been turned back by the Vascular Access Service due to inadequate vasculature suitable for venipuncture and or peripheral IV initiation. Two Vascular Access nurses have initiated a minimum total of four unsuccessful attempts for PIV access, including the use of Ultrasound guidance technology Due to the inadequacy of vasculature available for venipuncture and for patient comfort and safety,the Vascular Access Service will not attempt further access or lab draws on this patient for: [x ] 24 hrs [ ] 48hrs It is the recommendation of the Vascular Access Service staff that this patient have an alternativevenous access device ordered by a physician as soon as possible for patient comfort and to be able to safely administer the prescribed medications via venous infusion. Please page the PICC room at [phone] or call [phone] between the hours of 7:00am and 5:30pm Thursday-Thursday for PICC line placement/scheduling. After hours the Vascular Access Service can be reached at anytime on pager [phone] PICCrequests for the following day. Primary RN Arielle notified of turnback and states she will notify admitting provider. Patient scheduled for PICC line placement tomorrow. * Plan of Care - Maryana Cottrell RN - 11/02/2023 12:44 PM EDT Problem: Adult Inpatient Plan of Care Goal: Plan of Care Review Outcome: Ongoing (Interventions Implemented as Appropriate) Goal: Patient-Specific Goal (Individualized) Description: Patient will rest at least 3 hours uninterrupted. Outcome: Ongoing (Interventions Implemented as Appropriate) Goal: Absence of Hospital-Acquired Illness or Injury Outcome: Ongoing (Interventions Implemented as Appropriate) Goal: Optimal Comfort and Wellbeing Outcome: Ongoing (Interventions Implemented as Appropriate) Goal: Readiness for Transition of Care Outcome: Ongoing (Interventions Implemented as Appropriate) Problem: Infection Goal: Absence of Infection Signs and Symptoms Outcome: Ongoing (Interventions Implemented as Appropriate) Problem: Skin Injury Risk Increased Goal: Skin Health and Integrity Outcome: Ongoing (Interventions Implemented as Appropriate) Problem: Impaired Wound Healing Goal: Optimal Wound Healing Outcome: Ongoing (Interventions Implemented as Appropriate) * Care Management - Kristina Rodriguez RN - 11/02/2023 11:48 AM EDT OFFICE OF CARE MANAGEMENT PROGRESS NOTE LOS: Hospital Day 4 days Chart reviewed, care reviewed with primary team and at interdisciplinary rounds. Patient continues to meet inpatient level of care related to: abscess at the lower mid posterior to the presacral region s/p IR drain place, ID consulted waiting for cultures. Decision Maker: Guardian Guardianship paperwork on file: Yes Decision Maker Name: Fannie Villarreal Decision Maker Contact Information: Functional status prior to admission: Completely Dependent Home Environment: Others in the home: roomate(s), other relative(s) (guardian and caregiver). Current Living Arrangements: home/apartment/condo. Accessibility Concerns: Single level home with a ramp to enter.. Current Functional Ability: Completely Dependent DME used at home: wheelchair - manual, shower chair, hospital bed DME Needed at Discharge: No Patient is insured through: Primary Insurance: [place] Payor: [place] / Plan: [place] / Product Type: *No Product type* / Secondary Insurance: N/A Plan for discharge is: Home w/ Services Outpatient Agency/Support Group Needs: Homecare agency Home Health Services: Registered Nurse Agency Referrals: [facility] [address] [place] [address] or Transportation: family or friend will provide Plan going forward: Care Management will continue to follow and assist with discharge planning and coordination of care as indicated. Anticipated Date of Discharge: 11/06/2023 Kristina Rodriguez [employer] [phone] * Plan of Care - Arielle Patino RN - 11/02/2023 5:29 AM EDT OUTCOME EVALUATION NOTE: OUTCOME SUMMARY: Pt VSS on RA. Pt nonverbal. Unable to answer orientation questions. Moans and frowns when in pain. Pain medication given per JUN. Residential Sales Rep at bedside. 1x BM this shift. CARMELLA drain dressing C/D/I. See I&O. Assessment as charted. Medication given per JUN. Safety maintained. Care ongoing. PLAN MOVING FORWARD: Monitor I&O IV abx D/C planning. INDIVIDUALIZED FALL PREVENTION INTERVENTIONS: Patient-specific fall risk factors per assessment: [current deficits]: Quadriplegia, nonverbal, IV sites, Hospital; environment. Assistance [level of assistance required for transfers and ambulation]: 2X Assist Supervision [direct monitoring required during toileting and ADLs]: Eyes/ hands on Surveillance [continuous indirect monitoring]: Call fay within reach, bed alarm in place, room near nursing station, purposeful rounding. Patient-specific fall prevention interventions for sensory deficits provided, if applicable: [X] N/A CARE PLAN GOAL OUTCOME EVALUATION: Problem: Adult Inpatient Plan of Care Goal: Plan of Care Review Outcome: Ongoing (Interventions Implemented as Appropriate) Goal: Patient-Specific Goal (Individualized) Description: Patient will rest at least 3 hours uninterrupted. Outcome: Ongoing (Interventions Implemented as Appropriate) Goal: Absence of Hospital-Acquired Illness or Injury Outcome: Ongoing (Interventions Implemented as Appropriate) Goal: Optimal Comfort and Wellbeing Outcome: Ongoing (Interventions Implemented as Appropriate) Goal: Readiness for Transition of Care Outcome: Ongoing (Interventions Implemented as Appropriate) Problem: Infection Goal: Absence of Infection Signs and Symptoms Outcome: Ongoing (Interventions Implemented as Appropriate) Problem: Skin Injury Risk Increased Goal: Skin Health and Integrity Outcome: Ongoing (Interventions Implemented as Appropriate) Problem: Impaired Wound Healing Goal: Optimal Wound Healing Outcome: Ongoing (Interventions Implemented as Appropriate) Problem: Fall Injury Risk Goal: Absence of Fall and Fall-Related Injury Outcome: Ongoing (Interventions Implemented as Appropriate) * Plan of Care - Maryana Cottrell RN - 11/01/2023 12:13 PM EDT Problem: Adult Inpatient Plan of Care Goal: Plan of Care Review Outcome: Ongoing (Interventions Implemented as Appropriate) Goal: Patient-Specific Goal (Individualized) Description: Patient will rest at least 3 hours uninterrupted. Outcome: Ongoing (Interventions Implemented as Appropriate) Goal: Absence of Hospital-Acquired Illness or Injury Outcome: Ongoing (Interventions Implemented as Appropriate) Goal: Optimal Comfort and Wellbeing Outcome: Ongoing (Interventions Implemented as Appropriate) Goal: Readiness for Transition of Care Outcome: Ongoing (Interventions Implemented as Appropriate) Problem: Infection Goal: Absence of Infection Signs and Symptoms Outcome: Ongoing (Interventions Implemented as Appropriate) Problem: Skin Injury Risk Increased Goal: Skin Health and Integrity Outcome: Ongoing (Interventions Implemented as Appropriate) Problem: Impaired Wound Healing Goal: Optimal Wound Healing Outcome: Ongoing (Interventions Implemented as Appropriate) * Plan of Care - Jaye Murry RN - 11/01/2023 6:47 AM EDT OUTCOME EVALUATION NOTE: OUTCOME SUMMARY: Patient's vitals stable, audibly moans and frowns when in pain. Pain managed with PRN medications, patient rested in bed with eyes closed. Patient tolerated turns with caregiver and staff assistance.Wound dressing clean, dry, and intact. CARMELLA drains serosanguineous fluid. Patient tolerated IV antibiotics. No other assessment changes. PLAN MOVING FORWARD: Monitor I/Os IV antibiotics D/C planning INDIVIDUALIZED FALL PREVENTION INTERVENTIONS: Patient-specific fall risk factors per assessment: [current deficits]: quadriplegic, orientation, co-morbidities Assistance [level of assistance required for transfers and ambulation]: x2 assist Supervision [direct monitoring required during toileting and ADLs]: eyes on, hands on Surveillance [continuous indirect monitoring]: call light within reach, bed alarm in place, room near RN station, purposeful rounding. CPG GOAL OUTCOME EVALUATION: Problem: Adult Inpatient Plan of Care Goal: Plan of Care Review Outcome: Ongoing (Interventions Implemented as Appropriate) Goal: Patient-Specific Goal (Individualized) Description: Patient will rest at least 3 hours uninterrupted. Outcome: Ongoing (Interventions Implemented as Appropriate) Goal: Absence of Hospital-Acquired Illness or Injury Outcome: Ongoing (Interventions Implemented as Appropriate) Goal: Optimal Comfort and Wellbeing Outcome: Ongoing (Interventions Implemented as Appropriate) Goal: Readiness for Transition of Care Outcome: Ongoing (Interventions Implemented as Appropriate) Problem: Infection Goal: Absence of Infection Signs and Symptoms Outcome: Ongoing (Interventions Implemented as Appropriate) Problem: Skin Injury Risk Increased Goal: Skin Health and Integrity Outcome: Ongoing (Interventions Implemented as Appropriate) Problem: Impaired Wound Healing Goal: Optimal Wound Healing Outcome: Ongoing (Interventions Implemented as Appropriate) * Consult Note - Hollie Ambriz MD - 10/31/2023 7:48 AM EDT Infectious Disease Service - Initial Consultation ID: Tana Cavazos Room: [address] [place] [address] Consulting Service: Hospital Medicine Consulting Attending: Rebel Carrington MD Admission Date: 10/28/2023 Reason for Consult: Recurrent spinal infection HPI: Tana Cavazos is a 28 y.o. female with Hx of cerebral palsy w/ spastic quadriplegia, non-verbal at baseline, as well as prior posterolateral spinal fusion in 2008 and bilateral Girdlestones in 2010, who was admitted to [facility] in May 2022 for redness and tenderness over midline surgical incision.CT scan showed 2 irregular collections within the posterior lumbar region. The superior collection was around T12, and the more inferior collection was around L3-L4 with a R sided gluteal component that surrounding a dislocated screw She underwent CT-guided drainage of these collections on 06/25, with purulent material found from the inferior collection. Cultures were negative and it was decided to monitor off antibiotics. Her drain was removed on 07/01, and on 07/03, she developed E coli bacteremia.Repeat CT L-spine at that time showed persistent / recurrent loculated collections in the dorsal subcutaneous fat and likely R gluteal musculature, for which IR drain was placed on 07/04, with no Cxs sent. 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 The IR drain was removed on 07/08, and was discharged to home on 07/10. However, while still on levofloxacin, patient developed worsening redness and a lump over prior drain site, for which she was readmitted to [facility] on 07/22 to manage this issue. On arrival to [facility], she was afebrile without leukocytosis. Repeat of her L-spine showed that an increase in size of the soft tissue collection about the dislocated R iliac screw was slightly larger, as well as of the dorsal subcutaneous collection along the L L2-L3 lamina. She underwent bedside I&D of the bump on 07/22, w/ GS and Cxs negat mirian to date. She then underwent placement of two IR drains on 07/24, with Cxs again negative. Subsequently, blood Cxs on 07/28 revealed growth of Pseudomonas oryzihabitans, for which decision was made to treat with PO levofloxacin. Subsequently on an outpatient basis, she was transitioned to PO doxycycline on 08/13. Of note, she was evaluated by spine surgery multiple times at [facility] and was not deemeda candidate for operative intervention. Then, she was seen at [facility] for a second surgical opinion. On 08/27/2022, superficialCxs there revealed growth of Staph hemolyticus and capitis. She was initially continued on doxycycline for this but subsequently switched to TMP-SMX in early September 2022 given ?possible allergic reaction. She also did undergo re-insertion of IR drains on 09/26, with Cxs again returning negative. Eventually, she got a third surgical opinion at [facility] in [place] given the need for plastics closure of her overlying skin. The desire had been to hold TMP-SMX prior to this to increase yield of intra-operative Cxs, but this was not done. Ultimately, patient was taken to the OR on 02/11 for R pelvic srew revision and washout with complex plastics closure. Operative Cxs were againnegative. Post-operatively, she was treated with 6 weeks of ?IV vancomycin and pip-tazo, ending on 03/25, after which she was placed back onto TMP-SMX for suppression. She was seen in ID clinic on 03/26, at which point she was noted to have onging elevated CPR in the 80-90's. This eventually downtrended to 47. Eventually, CT of the L-spine was repeated on 04/16, showing interval development of acomplex, mass-like lesion in the L posterior paraspinous tissues, felt to represent liquefied hematoma or abscess. She continued to follow in ID clinic at [facility]. We discussed the equipoise as to whether the fluid collections surrounding the lumbar spinal hardware were infected to begin with, as well as the lack offeasibility/concern for toxicity with lifelong antimicrobial suppression for a young woman in her late 20's-early 30's. Eventually, after a shared decision making process involving her caregivers, wilfredet a plan of treating for ~6 months following this patient's surgery and then watching closely offof antibiotics. Thus, her TMP-SMX was stopped on 09/23 after an ID clinic evaluation. Her CRP at that time was 42, and the plan had been to repeat this lab in ~2-4 weeks locally, though this was not done. Subsequently, the patient's caregiver, Fannie, called in to the ID clinic on 10/26 stating that the patient had had increasing warmth and erythema in her lower back, as well as low grade fevers. She hadinitially expressed a desire to evaluate on an outpatient basis, but eventually, she brought the patient into the ED on 10/27. While she was afebrile with normal WBC count, CRP had jumped up to 148.3. CT L-spine showed a focal heterogenous organizing collection along the lower mid posterior to the presacral region, compatible with an infected seroma/abscess. This also showed a lucency of the underlying sacrum, concerning for associated osteomyelitis. IR was consulted and placed a drain into the co llection on 10/29, with aspiration of purulent fluid. Post-procedurally, she was started on daptomycin and ceftriaxone. 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 M46.20 Abscess L02.91 Skin ulcer of back L98.429 Medications: ondansetron (pf) (Zofran) (2 mg/mL) injection 4 mg cefTRIAXone (Rocephin) 2 g vial attach to sodium chloride 0.9% 50 mL Mini-Bag Plus DAPTOmycin (Cubicin) 450 mg in sodium chloride 0.9% 59 mL polyethylene glycoL (Miralax) packet 17 g senna (Senokot) tablet 17.2 mg sodium chloride 0.9 % (flush) (BD PosiFlush Normal Saline 0.9) flush 5 mL sodium chloride 0.9 % (flush) (BD PosiFlush Normal Saline 0.9) flush 5-20 mL lidocaine (Xylocaine) 1% (10 mg/mL) injection 3 mg melatonin tablet 3 mg enoxaparin (Lovenox) (40 mg/0.4 mL) subcutaneous injection 40 mg acetaminophen (Tylenol) tablet 650 mg lactobacillus acidophilus capsule 1 capsule baclofen (Lioresal) tablet 10 mg Allergies: Allergies Allergen Reactions Fluoxetine Other (See Comments) HIVES, HEART RACES Tegaderm [Transparent Dressings] Itching and Dermatitis Please use [id number] Cyclobenzaprine Other Reaction(s): Not available Doxycycline Other (See Comments) Cough, rash Penicillins Family History: As above, otherwise non-contributory Social History: Social History Tobacco Use Smoking status: Never Passive exposure: Never Smokeless tobacco: Never Tobacco comments: NO SMOKERS IN THE HOME Vaping Use Vaping status: Never Used Substance Use Topics Alcohol use: No Drug use: No Vitals: Last value Range last 24 hrs Temperature Temp: 36.3 ??C (97.3 ??F) Temp: [35.7 ??C (96.2 ??F)-36.6 ??C (97.9 ??F)] Heart Rate Heart Rate: 99 Heart Rate: [99] Blood Pressure BP: 90/56 BP: (86-103)/(56-72) Respiratory Rate Resp: 19 Resp: [16-20] SpO2 SpO2: 97 % SpO2: [93 %-99 %] Physical Exam: General: In no acute distress, resting in bed comfortably, pleasant Neck: Supple, trachea midline Pulmonary: Clear to auscultation listening anteriorly, no wheezes or crackles CV: Regular rate and rhythm, no murmurs Abdomen: Soft, non-distended, non-tender to palpation in all quadrants MSK: Drain in place with serosanguinous output, not frankly purulent in appearance Extremities: No peripheral edema Skin: No rashes or lesions noted on visible skin Neuro: Alert, moving upper but not lower extremities spontaneously Laboratory: Recent Labs 07/10/18 44610/30/238 10/29/23 0837 WBC 5.2 6.9 8.6 HGB 11.1* 11.3* 11.2* HCT 33.8* 34.8* 33.8* PLATELET 488* 432* 477* Recent Labs 10/31/2344610/30/238 10/29/23 0837 NA 140 136 140 K 3.8 4.1 4.2 CL 106 102 103 CO2 23 23 26 BUN 8 7* 6* CREATININE 0.27* 0.33* 0.31* No results for input(s): AST, ALT, ALKPHOS, BILITOT, BILIDIR in the last 168 hours. Microbiology: 10/30/23 Body fluid Cx - in progress ... 02/11/23 OSH OR Cx - NG 08/27/22 OSH Wound Cx - rare Staph haemolyticus, rare Staph capitis 09/26/22 Abscess Cx - NG 09/26/22 Abscess fungal Cx - NG 09/26/22 Abscess AFB Cx - NG 07/31/22 BCx x2 - NG 07/30/22 BCx x1 - NG 07/28/22 BCx x2 - Pseudmonas oryzihabitans in 1/4 vials 07/24/22 Body fluid Cx - NG 07/24/22 Body fluid fungal Cx - NG 07/24/22 Body fluid AFB Cx - NG 07/24/22 Abscess Cx - NG 07/22/22 Body fluid Cx - NG 07/22/22 BCx x2 - NG 07/07/22 BCx x1 - NG 07/06/22 BCx x1 - NG 07/03/22 BCx x2 - E coli in 1/4 vials (escobar-S) 07/01/22 BCx x1 - NG 06/25/22 Body fluid Cx x2 - NG 06/25/22 BCx x2 - NG Radiology/Studies/Procedures: CT of L-spine w/ IV contrast (10/28/2023) Focal heterogeneous organizing collection at the lower mid posterior to the presacral region, compatible with an infected seroma/abscess. Lucency of the underlying sacrum concerning for associated osteomyelitis. Impression: Tana Cavazos is a 28 y.o. female with Hx of cerebral palsy w/ spastic quadriplegia, non-verbal at baseline, as well as prior posterolateral spinal fusion in 2008 and bilateral Girdlestones in 2010, w/ recurrent collections around her spinal hardware that were never definitively proven to be infected, in part because Cxs were always taken after antibiotic administration. She did have transient bacteremias, including E coli in June 2022 and Pseudomonas oryzihabitans in July 2022, though it wasunknown if this correlated to the microbiology in the spine. Eventually, she underwent R pelvic srew revision and washout with complex plastics closure at [facility] on 02/11, after which she was treated with 6 weeks of IV vancomycin + pip-tazo. Then, she was placed on suppressive TMP-SMX to complete a total of ~7 months of treatment, which was eventually stopped on 09/23. She is now re-admitted with erythema and warmth at the previous incision site, w/ CT L-spine showing a reaccumulated collection with concern for underlying osteomyelitis. She is s/p IR drainage on 10/29,at which point purulent material was expressed. Cxs are pending, and post-procedurally, she was started on IV daptomycin + ceftriaxone. It is unfortunate that this has recurred, and there is clearly some ongoing infection of remaining hardware. I am hopeful that this time, because Cxs were obtained off of antibiotics, that we will beable to isolate the culprit pathogen. We can then use this information to give culture-directed therapy, and I anticipate that this time, we will plan to proceed with lifelong antibiotic suppression after an up-front course. Recommendations: - Continue IV daptomycin 8 mg/kg daily - Continue IV ceftriaxone 2g daily - Awaiting result of abscess Cxs to tailor therapy -- hopeful these will reveal growth given lack of receipt of antecedent antibiotics - Expect need for PICC placement to allow administration of IV antibiotics at home - Please trend CBC w/ diff, CMP, CK, and CRP at least weekly I spent a total of 80 minutes on the [id number] encounter, chart review, documentation, and coordination of care. X The Infectious Disease consult service will continue to follow the patient. Do not hesitate to page ID Green team with any further questions or concerns. ID will sign off. Please contact us if further consultation required. Hollie Ambriz MD Staff Physician in Infectious Diseases * Plan of Care - Jaye Murry RN - 10/31/2023 6:00 AM EDT OUTCOME EVALUATION NOTE: OUTCOME SUMMARY: Patient's vitals stable, no apparent signs of distress or pain. Patient tolerated turns with caregiver and staff assistance. Wound dressing clean, dry, and intact; CARMELLA drain drains serosanguineous fluid. Patient tolerated IV antibiotics. No other assessment changes. PLAN MOVING FORWARD: Wound care IV antibiotics D/C planning INDIVIDUALIZED FALL PREVENTION INTERVENTIONS: Patient-specific fall risk factors per assessment: [current deficits]: quadriplegic, orientation, co-morbidities Assistance [level of assistance required for transfers and ambulation]: x2 turn assist Supervision [direct monitoring required during toileting and ADLs]: eyes on, hands on Surveillance [continuous indirect monitoring]: call light within reach, room near RN station, bed alarm in place, purposeful rounding CPG GOAL OUTCOME EVALUATION: Problem: Adult Inpatient Plan of Care Goal: Plan of Care Review Outcome: Ongoing (Interventions Implemented as Appropriate) Goal: Patient-Specific Goal (Individualized) Description: Patient will rest at least 3 hours uninterrupted. Outcome: Ongoing (Interventions Implemented as Appropriate) Goal: Absence of Hospital-Acquired Illness or Injury Outcome: Ongoing (Interventions Implemented as Appropriate) Goal: Optimal Comfort and Wellbeing Outcome: Ongoing (Interventions Implemented as Appropriate) Goal: Readiness for Transition of Care Outcome: Ongoing (Interventions Implemented as Appropriate) Problem: Infection Goal: Absence of Infection Signs and Symptoms Outcome: Ongoing (Interventions Implemented as Appropriate) Problem: Skin Injury Risk Increased Goal: Skin Health and Integrity Outcome: Ongoing (Interventions Implemented as Appropriate) Problem: Impaired Wound Healing Goal: Optimal Wound Healing Outcome: Ongoing (Interventions Implemented as Appropriate) * Plan of Care - Shahbaz Barfield Jr., RN - 10/30/2023 6:49 PM EDT OUTCOME EVALUATION NOTE: OUTCOME SUMMARY: Pt had IR drain of abscess. Non-verbal. RA, reg HR, VSS. Carmella drain placed draining serosanguinous drainage. ABX ordered. Vanco held due to reported reaction from guardian. PLAN MOVING FORWARD: IV ABX, DC planning INDIVIDUALIZED FALL PREVENTION INTERVENTIONS: Patient-specific fall risk factors per assessment: [current deficits]: Non verbal, spastic quadriplegia Assistance [level of assistance required for transfers and ambulation]: total, 2 assist Supervision [direct monitoring required during toileting and ADLs]: dependent, 2 assist Surveillance [continuous indirect monitoring]: Masimo Patient-specific fall prevention interventions for sensory deficits provided, if applicable: [X] No CARE PLAN GOAL OUTCOME EVALUATION: Problem: Adult Inpatient Plan of Care Goal: Plan of Care Review Outcome: Ongoing (Interventions Implemented as Appropriate) Goal: Patient-Specific Goal (Individualized) Description: Patient will rest at least 3 hours uninterrupted. Outcome: Ongoing (Interventions Implemented as Appropriate) Goal: Absence of Hospital-Acquired Illness or Injury Outcome: Ongoing (Interventions Implemented as Appropriate) Goal: Optimal Comfort and Wellbeing Outcome: Ongoing (Interventions Implemented as Appropriate) Goal: Readiness for Transition of Care Outcome: Ongoing (Interventions Implemented as Appropriate) Problem: Infection Goal: Absence of Infection Signs and Symptoms Outcome: Ongoing (Interventions Implemented as Appropriate) Problem: Skin Injury Risk Increased Goal: Skin Health and Integrity Outcome: Ongoing (Interventions Implemented as Appropriate) Problem: Impaired Wound Healing Goal: Optimal Wound Healing Outcome: Ongoing (Interventions Implemented as Appropriate) * Consult Note - Kelly Cummings, [facility] - 10/30/2023 4:10 PM EDT Adden: The pharmacist-managed vancomycin consult service will sign-off and vancomycin therapy, if it is tana continued, must be ordered by the responsible prescriber. Pharmacists??? therapeutic drug monitoring will continue for patients receiving vancomycin. Should specific assistance be needed regarding re-initation or continuation of vancomycin therapy, please page the care area pharmacist with any questions you may have. Alternately, during off-hours you may call [phone] to contact a pharmacist. [facility] Pharmacokinetics Note Drug: Vancomycin Pharmacokinetic target: AUC24 (range) 400-600 mg/L.hr Tana Cavazos is a(n) 28 years old female initiating Vancomycin for paraspinal infection, concern forosteo Recent measured serum creatinine values: 10/30/2023 04:48 0.33 mg/dL 10/29/2023 08:37 0.31 mg/dL 10/28/2023 21:00 0.25 mg/dL Assessment: Analysis using GetBack[employer] gives the following patient-specific pharmacokinetic parameters: CL: 5.38 L/hr V: 47.3 L T1/2: 8.32 hours At this time we recommend a regimen of 1250 mg IV every 12 hours, which is predicted to result in asteady-state trough of 11.9 mg/L and AUC24 of 462 mg/L.hr. Recommendations: - Vancomycin 1250 mg IV every 12 hours - Obtain Vancomycin level tomorrow, pharmacy to manage - Continue to monitor serum creatinine Kelly Cummings * Consult Note - Stephanie Auguste RN - 10/30/2023 11:41 AM EDT Certified Wound Care Nurse Rounding Note Situation: Asked to see Tana Cavazos by Zakia Mercado RN for low sumit score, 11 Background: eD-H notes reviewed for history, admitting diagnosis and active problem list. Rounded on patient, discussed patient with RN. Reviewed assessment of all bony prominences and under devices for pressure ulcer development, ability to turn/reposition and if there are any barriers due to patient condition for routine care, turning schedules and or pressure ulcer prevention. ? Issues/concerns identified: No concerns at this time ? Current Wound Care Recommendations reviewed: Follow hospital standard for pressure injury prevention and skin care. Refer to adult/pediatric pressure ulcer prevention job aid in the clinical policy library. ? Wound Care will complete the consult at this time. If there are further issues please re-consult via eD-H. Discussed with RN: Herberth ? Please contact Stephanie Auguste RN on secure chat or the wound care team at [phone] with skin and wound care concerns or questions. * Plan of Care - Jaye Murry RN - 10/30/2023 6:26 AM EDT OUTCOME EVALUATION NOTE: OUTCOME SUMMARY: Patient's vitals stable, no apparent signs of distress or pain. Patient tolerated turns with caregiver and staff assistance. Skin clean, dry, and intact. No assessment changes. PLAN MOVING FORWARD: IR drain placement Q2 turns D/C planning INDIVIDUALIZED FALL PREVENTION INTERVENTIONS: Patient-specific fall risk factors per assessment: [current deficits]: Quadriplegic, orientation, co-morbidities Assistance [level of assistance required for transfers and ambulation]: x2 turn assist Supervision [direct monitoring required during toileting and ADLs]: eyes on, hands on Surveillance [continuous indirect monitoring]: call light within reach, room near RN station, bed alarm in place, purposeful rounding CPG GOAL OUTCOME EVALUATION: Problem: Adult Inpatient Plan of Care Goal: Plan of Care Review Outcome: Ongoing (Interventions Implemented as Appropriate) Goal: Patient-Specific Goal (Individualized) Description: Patient will rest at least 3 hours uninterrupted. Outcome: Ongoing (Interventions Implemented as Appropriate) Goal: Absence of Hospital-Acquired Illness or Injury Outcome: Ongoing (Interventions Implemented as Appropriate) Goal: Optimal Comfort and Wellbeing Outcome: Ongoing (Interventions Implemented as Appropriate) Goal: Readiness for Transition of Care Outcome: Ongoing (Interventions Implemented as Appropriate) Problem: Infection Goal: Absence of Infection Signs and Symptoms Outcome: Ongoing (Interventions Implemented as Appropriate) Problem: Skin Injury Risk Increased Goal: Skin Health and Integrity Outcome: Ongoing (Interventions Implemented as Appropriate) Problem: Impaired Wound Healing Goal: Optimal Wound Healing Outcome: Ongoing (Interventions Implemented as Appropriate) * Plan of Care - Zakia Mercado RN - 10/29/2023 1:56 PM EDT Patient here for IR drainage of abscess in back. NPO most of the day, but meds allowed with applesauce. BP soft on all extremities: MD contacted, gave fluid boluses x2 with response Purewick catheter effective for incontinence management. She had a BM today. Patient is mostly nonverbal but understands and responds to cueing. Can turn with 1 assist. Caregiver states they use a pelon at home. Report given to floor charge nurse. Problem: Adult Inpatient Plan of Care Goal: Plan of Care Review Outcome: Ongoing (Interventions Implemented as Appropriate) Goal: Patient-Specific Goal (Individualized) Outcome: Ongoing (Interventions Implemented as Appropriate) Goal: Absence of Hospital-Acquired Illness or Injury Outcome: Ongoing (Interventions Implemented as Appropriate) Goal: Optimal Comfort and Wellbeing Outcome: Ongoing (Interventions Implemented as Appropriate) Goal: Readiness for Transition of Care Outcome: Ongoing (Interventions Implemented as Appropriate) * Initial Assessments - Alicja Franklin RN - 10/29/2023 9:08 AM EDTSummaximus: [place] Initial Assessment Office of Care Management Initial Assessment Alicja Franklin RN reviewed record and discussed patient with Care Team. Source of Information: Team, bedside nurse, medical record, and Guardian (Fannie Villarreal, guardian, atthe bedside.) Introduced self/reviewed role; services accepted. Admitted From: Home Reason for Hospitalization: Per H&P: 27 y.o. 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 coli bacteremia who presents to the ED with fever, redness, warmth, on her back. History was obtained from Fannie, her legal guardian. She states that Tana underwent back surgery last January, and had been on antibiotics until they were stopped in August. Fannie noticed recurrent redness and warmth in Tana's lower back, and Tana developed a fever up to 100.3??F. Lab tests at a nearby hospital showed elevated inflammatory markers. Tana was then brought to [facility], where she has been receiving her medical care. Past medical History: No past medical history on file. Hospitalizations Within the Past 30 Days: no previous admission in last 30 days Current Decision-Making Capacity: Guardian Name(s) of Court Appointed Guardian(s): Fannie Villarreal Court Appointed Guardian(s) Contact Information: Guardianship paperwork on file?: Yes Advance Care Planning: Attempt Cardiopulmonary Resuscitation - Inpatient <no information> -Advanced Directive: Other (Guardianship form on file.) Current Coping/Education/Information Needs: Pt is giggling and saying Hi Current Functional Ability: Completely Dependent Functional Status Prior to Admission: Completely Dependent Prior ADLs & IADLs: Assistance Needed with ADLs & IADLs Cooking / Eating: Completely Dependent Cleaning: Family / Friends do Cleaning Laundry: Has Assistance Driving: Family / Friends Provide Rides Groceries: Family / Friends Provide Groceries Medication Management: Dependent with Medication Management Bathing: Family / Friends do Bathing Dressing: Family / Friends do Dressing Home Environment: Others in the home: roomate(s), other relative(s) (guardian and caregiver). Current Living Arrangements: home/apartment/condo. Accessibility Concerns:Single level home with a ramp to enter.. In the last 12 months, was there a time when you were not able to pay the mortgage or rent on time?: No In the past 12 months, how many times have you moved where you were living?: 0 At any time in the past 12 months, were you homeless or living in a senior living (including now)?: No In the past 12 months has the [employer], gas, oil, or water [employer] threatened to shut off services in your home?: No Within the past 12 months, you worried that your food would run out before you got the money to buymore.: Never true Within the past 12 months, the food you bought just didn't last and you didn't have money to get more.: Never true Resource / Environmental Concerns: Resource/Environmental Concerns: none In the past 12 months, has lack of transportation kept you from medical appointments or from getting medications?: No In the past 12 months, has lack of transportation kept you from meetings, work, or from getting things needed for daily living?: No Current DME: wheelchair - manual, shower chair, hospital bed Home Address confirmed as: [address] [facility] [address] Social & Family Supports: All names listed below confirmed with patient as current and correct Extended Emergency Contact Information Primary Emergency Contact: [place] [address] [facility] Mobile Relation: Guardianship Secondary Emergency Contact: Fernanda Sorensen Mobile Relation: Paid Caregiver Mother: Anderson Thorpe Address: [address] [address] [facility] Home Phone: [phone] Mobile Current Care Provided by: other (see comments) Provides Primary Care For: no one, unable/limited ability to care for self Caregiver if needed: other (see comments) (Fannie and Fernanda) Quality of Family relationships: helpful, supportive, involved Community Resources being provided currently: homecare agency ([facility] for blood draws.) Behavioral Health History: none noted Substance Use/Abuse listed: Social History Tobacco Use Smoking Status Never Passive exposure: Never Smokeless Tobacco Never Tobacco Comments NO SMOKERS IN THE HOME 0 No problems reported 1-2 Low level 3-5 Moderate level 6-8 Substantial level 9- 10 Severe level 0 to 7 points: Low risk 8 to 15 points: Medium risk 16 to 19 points: High risk 20 to 40 points: Addiction likely Other Pertinent/Service Specific Information: none Health/Prescription Coverage: Primary Insurance: [place] Payor: [place] / Plan: [place] / Product Type: *No Product type* / Secondary Insurance: N/A Prescription Coverage: Yes Preferred Pharmacy: [facility] Home Delivery - [facility] [address] [facility] [address] [facility] [address] [facility] [address] [place] [id number] [place] Status: Patient is a : No Primary Care Provider confirmed: Lorna Bal, GAS FITTER APPRENTICE [phone] Patient/Caregiver Goals of Treatment: Fannie anticipates pt to return home upon discharge. Potential Needs for Transition of Care: home health care Agency Referrals: I have met with the passenger service representative to: discuss discharge planning needs. provide the [facility], Office of Care Management letter from the Behavioral Health Professional pertaining to rehab referrals. provide a letter describing our affiliations within the [facility] and educate about their right to choose where referrals are sent. provide a list of Home Health Agencies / Durable Medical Equipment vendors which serve their preferred geographic area. provided patient with [facility] Star Quality Rating handout. They have requested referrals to: [facility] [address] [place] [address] Note routed to a Speech Correction Consultant who will communicate referrals to facilities and provide any required information. Transportation: no concerns Transportation Anticipated: family or friend will provide Concerns to be Addressed: discharge planning Assessment: Patient is admitted to Medicine service for Abscess. Plan going forward: Plan for IR drainage of the abscess. Care Management team will continue to follow and assist with discharge planing and coordination of care as indicated. Alicja Franklin RN, BSN, ACM-AIRCRAFT RIGGING AND CONTROLS MECHANICcash posting specialist Office of Care Management Pager: [phone] * Consult Note - Zach Pierre RPH - 10/29/2023 3:01 AM EDT [facility] List Update for Medication Reconciliation 10/29/23 3:01 AM Tana Cavazos 1995 Allergies Allergen Reactions Fluoxetine Other (See Comments) HIVES, HEART RACES Tegaderm [Transparent Dressings] Itching and Dermatitis Please use [id number] Cyclobenzaprine Other Reaction(s): Not available Doxycycline Other (See Comments) Cough, rash Penicillins Person Interviewed: [facility] Quality of Interview/accuracy of medication list: excellent Sources used to compile medication list: [] Epic medication list [] SureScripts/Dispense Report [] PCP/Specialist list [x] Retail pharmacy [] Patient list [] MAR [] Other Changes made to home medication list: Additions: Bisacodyl prn Deletions: Nystatin, Probiotic, Vitamin, Psyllium Changes: None Additional Notes: [facility] Medication List Recommended changes: None The home medication list is now updated to the best of my knowledge and is ready to be reconciled by the provider. Please contact the TelePhaacy Medication Reconciliation Pharmacist at for any questions. Zach Pierre RPH * Consult Note - Zach Galvan MD - 10/29/2023 12:52 AM EDT Images from the original note were not included. Orthopaedic Spine Consult Note Attending: Dr. Hutton Tana Cavazos is a 28 y.o. female who presents to see us in consultation today at the request of Siomara Hernandez MD. Chief Complaint: Prior surgical site redness, recent fevers and chills History of Present Illness: Tana Cavazos is a 28 y.o. 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 Of note, patient has a known history of lumbar subcutaneous abscesses and E. coli bacteremia status post IR guided drainage 07/09/2022. She was also evaluated by our team on 07/22/2022 for concern for a lumbar soft tissue collection in the region of her prior hardware. At that time, she underwent an IR-guided aspiration and drainage. Cultures from that aspiration remained negative though she did have positive blood cultures for Pseudomonas necessitating therapy with Levofloxacin. On 02/12/2024, the patient underwent a revision surgery in [place], [place] that involved removal of a R pelvic screw and washout with PRS closure. OR cultures were negative at that time but patient developed post-operative hypotension requiring NCCU admission. A CT of the lumbar spine done at that time showed a Interval development of complex masslike lesion in the left posterior paraspinous tissues.. Her Bactrim was stopped on 09/23 due to a down-trending CRP and benign-looking surgical site. She has re-presented today due to subjective fevers with associated redness and warmth surrounding her prior surgical incision since termination of antibiotics. Information is obtained from the patient's ca regivers as she is nonverbal at baseline. They state that she has simply not seem to herself. VNAbecame concerned in the recent days when her CRP nearly tripled. A CT scan was performed today thatshows an increase in the size of her presacral fluid collection compared to prior imaging. On my discussion with musculoskeletal radiology, the fluid collection appears to abut her surgical hardware up to the L5 level. In our ED, she has remained afebrile but is tachycardic to 110. Vitals are otherwise stable. WBC: 8.7 ESR 119 CRP 148.3. Last known CRP while on antibiotic therapy was 42.3. 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 Past Surgical History: Procedure Laterality Date BACK SURGERY scoliosis repair HIP OSTEOTOMY bilateral IR ALL DRAINAGE PROCEDURES 06/25/2022 IR All Drainage Procedures 06/25/2022 Mich Martino MD [facility] INTERVENTIONL RAD IR ALL DRAINAGE PROCEDURES 07/04/2022 IR All Drainage Procedures 07/04/2022 Mich Martino MD [facility] INTERVENTIONL RAD IR ALL DRAINAGE PROCEDURES 07/24/2022 IR All Drainage Procedures 07/24/2022 Anurag Kumar MD [facility] INTERVENTIONL RAD IR ALL DRAINAGE PROCEDURES 09/26/2022 IR All Drainage Procedures 09/26/2022 Jamaal Jenkins, DO [facility] INTERVENTIONL RAD IR DRAIN CHECK/CHANGE/REMOVE 07/01/2022 IR Drain Check/Change/Remove 07/01/2022 Jamaal Jenkins, DO [facility] INTERVENTIONL RAD IR DRAIN CHECK/CHANGE/REMOVE 08/11/2022 IR Drain Check/Change/Remove 08/11/2022 Piter Self MD [facility] INTERVENTIONL RAD IR DRAIN CHECK/CHANGE/REMOVE 08/25/2022 IR Drain Check/Change/Remove 08/25/2022 Jamaal Jenkins, DO [facility] INTERVENTIONL RAD IR DRAIN CHECK/CHANGE/REMOVE 09/10/2022 IR Drain Check/Change/Remove 09/10/2022 Mich Martino MD [facility] INTERVENTIONL RAD PRO APPLY OF HIP CASTS, TWO LEGS 08/15/2010 CAST APPLICATION, HIP SPICA, BOTH LEGS performed by BARRERA OLIVER at [facility] MAIN OR PRO COLONOSCOPY, BIOPSY N/A 08/05/2023 COLONOSCOPY FLEXIBLE, WITH BX (WRVU 3.56) performed by Jamar Gastelum MD at [facility] ENDOSCOPY PRO I&D, POST SPINE, LUMB/SACR/LUMBOSAC N/A 05/20/2014 @I & D, OPEN, DEEP ABSCESS, LUMBAR, SACRAL, LUMBOSACRAL performed by Freddy Isbell MD at [facility] MAIN OR PRO I&D, POST SPINE, LUMB/SACR/LUMBOSAC N/A 05/26/2014 @I & D, OPEN, DEEP ABSCESS, LUMBAR, SACRAL, LUMBOSACRAL performed by Freddy Isbell MD at [facility] MAIN OR PRO IMPACT TOOTH REMOV COMP BONY N/A 06/14/2018 SURGICAL EXTRACTIONS, REMOVAL OF IMPACTED TOOTH, COMPLETELY BONY (WRVU 1.93) performed by Keith Cotton MD at [facility] OSC PRO OSTEOTOMY FEMUR SHAFT/SUPRACONDY 08/15/2010 ??OSTEOTOMY, FEMUR SHAFT OR SUPRACONDYLAR W/O FIXATION performed by BARRERA OLIVER at [facility] MAIN OR PRO RECONSTRUC HIP SOCKET, RESEC FEM HEAD 08/15/2010 ??ACETABULOPLASTY (GIRDLESTONE), RESECTION FEMORAL HEAD, BILATERAL performed by BARRERA OLIVER [facility] MAIN OR PRO REMOVAL DEEP IMPLANT 08/15/2010 REMOVAL IMPLANT, DEEP, BRUNO performed by BARRERA OLIVER at [facility] MAIN OR PRO REMOVAL ERUPTED TOOTH WITH ELEVATION OF MUCOPERIOSTEAL FLAP N/A 06/14/2018 SURGICAL EXTRACTIONS REQUIRING ELEVATION OF MUCOPERIOSTEAL FLAP AND REMOVAL OF BONE OR SECTION OF TOOTH (WRVU 1.09) performed by Keith Cotton MD at [facility] OSC PRO REMOVE INFUSN DEVICE/PUMP N/A 05/11/2014 REMOVAL OF SPINE INFUSION PUMP performed by Jamaal Samuel MD at [facility] MAIN OR PRO REMOVE SPINAL CANAL CATHETER N/A 05/11/2014 REMOVAL OF INTRATHECAL OR EPIDURAL CATHETER performed by Jamaal Samuel MD at [facility] MAIN OR PRO REPR, DURAL/CSF LEAK, NOT REQ LAMINECTOMY N/A 05/20/2014 @REPAIR DURAL\CSF LEAK,NOT REQUIRING LAMINECTOMY performed by Freddy Isbell MD at [facility] MAIN OR Home Medications: (Not in a hospital admission) Allergies: Allergies Allergen Reactions Fluoxetine Other (See Comments) HIVES, HEART RACES Tegaderm [Transparent Dressings] Itching and Dermatitis Please use [id number] Cyclobenzaprine Other Reaction(s): Not available Doxycycline Other (See Comments) Cough, rash Penicillins Current Medications: No current facility-administered medications on file prior to encounter. Current Outpatient Medications on File Prior to Encounter Medication Sig Dispense Refill sulfamethoxazole-trimethoprim (Bactrim) 400-80 mg tablet TAKE 1 TABLET BY MOUTH TWICE A DAY 60 tablet 0 ergocalciferoL, vitamin D2, (vitamin D2) 50,000 unit capsule Take 50,000 Units by mouth once a week. Psyllium Husk-Sucrose 3.4 gram/7 gram Powder Take by mouth daily. lactobacillus rhamnosus, GG, (CULTURELLE) 10 billion cell Capsule Take 1 capsule by mouth daily. polyethylene glycoL (Miralax) 17 gram oral powder packet Take 17 g by mouth daily. senna (Senokot) 8.6 mg tablet Take 2 tablets by mouth nightly. nystatin (MYCOSTATIN) 100,000 unit/gram Powder Apply 1 each topically 2 times daily. baclofen (Lioresal) 10 mg tablet Take 10 mg by mouth 3 times daily. multivitamin (THERAGRAN) Tablet Take 1 tablet by mouth daily. Family History: Non-contributory Social History: Social History Occupational History Not on file Tobacco Use Smoking status: Never Passive exposure: Never Smokeless tobacco: Never Tobacco comments: NO SMOKERS IN THE HOME Vaping Use Vaping status: Never Used Substance and Sexual Activity Alcohol use: No Drug use: No Sexual activity: Not on file Review of Systems: As per HPI, otherwise negative Objective: Temp: [36 ??C (96.8 ??F)] Heart Rate: [110] Resp: [19] BP: (124)/(98) SpO2: [98 %] Heart Rate from SpO2: -- Gen: NAD, awake, alert, appropriate CV: RRR, no MGR Pulm: Non-labored breathing, lungs CTA Focused Spine Exam: Back: Prior lumbosacral incision site is benign appearing with minimal periwound erythema. Contractures of bilateral shoulders and elbows. Contractures of bilateral hips and knees with hyperflexion of both ankles. No drainage. No stepoff. No abrasons present. Motor and sensory: Unable to assess motor activity due to quadriplegic status. Sensory exam is unreliable but respondsto light touch in all 4 extremities. Imaging: CT lumbar spine (10/28/23): Independent review of her lumbar spine CT scan shows an 8 x 3 x 7 cm heterogeneous fluid collectionextending from the presacral region up to the level of L5, where it abuts her surgical hardware. Hardware appears intact with no evidence of loosening. Assessment/Plan: 28 y.o. female who presents with repeat accumulation of a lumbosacral fluid collection surrounding spinal hardware in the setting of a rising CRP and subjective fevers since completion of antibiotic therapy at the end of August. The patient is afebrile in our emergency department withstable vital signs. On further discussion with her caregivers, they are frustrated that her most recent revision surgery and debridement did not lead to resolution of the recurrent fluid accumulations. I discussed with them that at this time, she is hemodynamically stable and not showing any signs of clinical decompensation. Options were discussed including IR-guided aspiration + drainage vs surgical debridement and likely removal or hardware. They expressed a preference to avoid an extensive surgical debridement at this time if possible. Given this, would recommend engaging with our interventional radiology team for a repeat image- guided aspiration to guide further antibiotic therapy. Would also consider drain placement to help further resolve the fluid collection. Lastly, would recommend engaging with our infectious disease team for recommendations regarding antibiotic therapy pendingher aspiration results. It appears that the patient may benefit from lifelong suppressive therapy as her CRP had been well- controlled while on antibiotic therapy. Orthopedic spine surgery will continue to be available should any clinical questions remain or she demonstrate any signs of acute clinical deterioration. - Activity: activity as tolerated - DVT prophylaxis: per primary - Medications: pain control, antibiotics per ID - Follow up: as needed pending course. James Swanson IV, DO Orthopaedic Surgery, [id number] ADDENDUM: Case reviewed with Dr. Galvan. Plan as above. If patient fails IR- guided aspiration and antibiotics, surgical debridement and likely HERI can be considered. Spine Attending I have seen and examined the patient and agree with the resident's findings and plan. Pt has long hx related to scoliosis surgery. She presented with spontaneous infection last year, initially treated with drainage and abx but infection persisted. According to family, she had I+D with hardware exchange at [facility] last year. She was doing well until oral abx stopped and she seemed listless. Inflammatory markers were elevated, and CT scan showed fluid collection dorsal to sacrum andlower L spine on R. Options discussed including IR drainage and abx vs. I+D and hardware removal. Family prefers IR drainage and abx. If this fails, she may need I+D and hardware removal. Would recommend determining what hardware is present and whether MRI could be performed to better characterize fluid collection. documented in this encounter Plan of Treatment Upcoming Encounters Date Type Department Care Team (Late st Contact Info) Description 11/19/2023 2:30 PM EDT TH Visit (TeleHealth) [place] [phone] Lilli Joy APRN [facility] [place] [address] 11/30/2023 12:50 PM [place] [phone] 12/03/2023 12:30 PM EDT Office [place] [phone] Hollie Ambriz MD [facility] [place] [address] Scheduled Orders Name Type Priority Associated Diagnoses Orde r Schedule IR Drain Check/Change/Remove Imaging Routine Abscess Expected: 11/30/2023 (Approximate), Expires: 05/31/2024 CBC (with Diff) Lab Routine 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 Once a week for 6 Occurrences starting 11/02/2023 until 01/03/2024 Comprehensive metabolic panel (non-fasting) Lab Routine 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 Once a week for 6 Occurrences starting 11/02/2023 until 01/03/2024 CRP, acute inflammation Lab Routine 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 Once a week for 6 Occurrences starting 11/02/2023 until 01/03/2024 Scheduled Referrals Name Type Priority Associated Diagnoses Order Schedule OPAT: Order / Recommendation for Post Discharge IV Antibiotic Management Outpatient Referral Routine 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 Ordered: 11/02/2023 Referral to Home Health Outpatient Referral Routine 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 Ordered: 11/03/2023 documented as of this encounter Procedures Procedure Name Priority Date/Time Associated Diagnosis Comments PLACE PICC LINE: CONTACT VASCULAR ACCESS Routine 11/03/2023 11:28 AM EDT XR PICC PLACEMENT OVER 5 YEARS (IV TEAM) Routine 11/03/2023 11:19 AM EDT HC C-REACTIVE PROTEIN Routine 11/02/2023 5:26 AM EDT HEMOGRAM Routine 11/02/2023 5:26 AM EDT DIFFERENTIAL, AUTOMATED Routine 11/02/2023 5:26 AM EDT HC CBC,PLT & AUTO DIFF Routine 5:26 AM EDT HC CREATINE PHOSPHOKINASE, SERUM Routine 11/02/2023 5:26 AM EDT COMPREHENSIVE METABOLIC PANEL (NON-FASTING) Routine 11/02/2023 5:26 AM EDT XR ABDOMEN 1 VIEW Routine 11/01/2023 10: 14 PM EDT HC MRSA DETECTION BY PCR Routine 10/31/2023 6:10 PM EDT HC C-REACTIVE PROTEIN Routine 10/31/2023 4:47 AM EDT HEMOGRAM Routine 10/31/2023 4:47 AM EDT DIFFERENTIAL, AUTOMATED Routine 10/31/2023 4:47 AM EDT HC ESR-SEDIMENTATION RATE, BLOOD Routine 10/31/2023 4:47 AM EDT HC CBC,PLT & AUTO DIFF Routine 4:47 AM EDT HC MAGNESIUM, SERUM Routine 10/31/2023 4 :47 AM EDT BASIC METABOLIC PANEL (NON-FASTING) Routine 10/31/2023 4:47 AM EDT IR ALL DRAINAGE PROCEDURES STAT 10/30/2023 3:23 PM EDT ANAEROBIC CULTURE Routine 10/30/2023 3:0 2 PM EDT HC GRAM STAIN FOR BACTERIA Routine 10/30/2023 3:02 PM EDT BODY FLUID CULTURE, AEROBIC Routine 10/30/2023 3:02 PM EDT HC C-REACTIVE PROTEIN Routine 10/30/2023 4:48 AM EDT HEMOGRAM Routine 10/30/2023 4:48 AM EDT DIFFERENTIAL, AUTOMATED Routine 10/30/2023 4:48 AM EDT HC ESR-SEDIMENTATION RATE, BLOOD Routine 10/30/2023 4:48 AM EDT HC CBC,PLT & AUTO DIFF Routine 4:48 AM EDT HC MAGNESIUM, SERUM Routine 10/30/2023 4 :48 AM EDT CK Routine 10/30/2023 4:48 AM EDT BASIC METABOLIC PANEL (NON-FASTING) Routine 10/30/2023 4:48 AM EDT POCT URINE STAT 10/29/2023 10:26 AM EDT HEMOGRAM Routine 10/29/2023 8:37 AM EDT DIFFERENTIAL, AUTOMATED Routine 10/29/2023 8:37 AM EDT HC L-LACTATE Routine 10/29/2023 8:37 AM EDT HC CBC,PLT & AUTO DIFF Routine 8:37 AM EDT HC PHOSPHORUS, SERUM Routine 10/29/2023 8:37 AM EDT HC MAGNESIUM, SERUM Routine 10/29/2023 8 :37 AM EDT BASIC METABOLIC PANEL (NON-FASTING) Routine 10/29/2023 8:37 AM EDT URINALYSIS MICROSCOPIC EXAM STAT 10/29/2023 2:33 AM EDT URINALYSIS WITH REFLEX CULTURE STAT 10/29/2023 2:33 AM EDT HC C-REACTIVE PROTEIN Routine 10/29/2023 2:08 AM EDT HC ESR-SEDIMENTATION RATE, BLOOD Routine 10/29/2023 2:08 AM EDT HC PHOSPHORUS, SERUM Routine 10/29/2023 2:08 AM EDT HC MAGNESIUM, SERUM Routine 10/29/2023 2 :[address] LUMBAR SPINE WITH CONTRAST STAT 10/28/2023 9:50 PM EDT HC C-REACTIVE PROTEIN STAT 10/28/2023 9:00 PM EDT HEMOGRAM STAT 10/28/2023 9:00 PM EDT DIFFERENTIAL, AUTOMATED STAT 10/28/2023 9:00 PM EDT HC ESR-SEDIMENTATION RATE, BLOOD STAT 10/28/2023 9:00 PM EDT HC CBC,PLT & AUTO DIFF STAT 9:00 PM EDT BASIC METABOLIC PANEL (NON-FASTING) STAT 10/28/2023 9:00 PM EDT documented in this encounter Results * Place PICC Line: Contact Vascular Access Page [phone] Extremity to exclude: No restrictions; Is PICC [...] to the planned procedure. Hand Hygiene: The billet sawyer did perform hand hygiene prior to line insertion. Catheter type: PICC Lot number: [id number] Procedure Technique: Skin was prepped with chlorhexidine. [...] Successful PICC placement. Margie Bucio RN 11/03/2023 Wally Rosen MD PROCEDURE/MINOR SURG ICAL ORDERABLES * XR PICC Placement Over 5 Years with Imaging Guidance (IV Team) (11/03/2023 11:19 AM EDT) Job1001 Signature WORKSTATION ID [id number] RAD Anatomical Region Laterality Modality N/A Radio [...] have questions please contact the health care management specialist that requested your imaging first. ? Narrative 11/03/2023 11:55 AM EDT EXAMINATION: XR [...] who have questions please contactthe health care management specialist that requested your imaging first. Wally Rosen MD IMG FLUORO ORDERABLE S * Differential, Automated (11/02/2023 5:26 AM EDT) Neutrophils % 69.0 % [facility] Neutr Abs (ANC) 5.16 1.70 - 6.10 x10(3)/[facility] Lymphocytes % 21.7 % [facility] Lymphocytes Abs 1.6 0.9 - 3.2 x10(3)/[facility] Monocytes % 6.8 % [facility] Monocyte Abs 0.5 0.3 - 0.9 x10(3)/[facility] Eosinophils % 1.6 % [facility] Eosinophils Abs 0.1 0.0 - 0.4 x10(3)/[facility] Basophils % 0.5 % [facility] Basophils Abs 0.0 0.0 - 0.1 x10(3)/[facility] Immature Gran % 0.40 % [facility] Comment: Immature granulocytes(IG's)percentage and absolute count will include metamyelocytes, myelocytes, and promyelocytes. Blood smears from CBCs yielding IG's will be scanned manually for concordance. If this scan disagrees with the automated IG or if promyelocytes are noted, a manual differential will be performed. Debora Gran Abs 0.03 0.00 - 0.04 x10(3)/[facility] Blood 11/02/2023 5:26 AM EDT 11/02/2023 5:43 AM EDT Narrative Resulting Agency Comment Spec In Lab Wally Rosen MD HEMATOLOGY ORDERABLE S [facility] [place] [address] * (ABNORMAL) Hemogram (11/02/2023 5:26 AM EDT) WBC 7.5 4.0 - 9.5 x10(3)/[facility] RBC 3.89(L) 4.00 - 5.21 x10(6)/[facility] Hemoglobin 11.1(L) 11.7 - 15.5 g/dL [facility] Hematocrit 33.8(L) 35.7 - 45.8 % [facility] MCV 86.9 82.6 - 94.4 [facility] MCH 28.5 27.1 - 32.0 pg [facility] MCHC 32.8 31.7 - 35.0 g/dL [facility] Platelets 477(H) 145 - 357 x10(3)/[facility] RDWSD 45.1 37.0 - 46.0 [facility] RDWCV 14.3(H) 11.5 - 14.1 % [facility] MPV 9.1 7.6 - 12.9 [facility] nRBC % Auto 0.0 % [facility] nRBC Abs Auto 0.000 0.000 - 0.000 x10(3)/[facility] Blood 11/02/2023 5:26 AM EDT 11/02/2023 5:43 AM EDT Narrative Resulting Agency Comment Spec In Lab Wally Rosen MD HEMATOLOGY ORDERABLE S [facility] [place] [address] * CK (11/02/2023 5:26 AM EDT) [facility] CK, Total 14 0 - 160 unit/L [facility] Blood 11/02/2023 5:26 AM EDT 11/02/2023 5:44 AM EDT Narrative Resulting Agency Comment Spec In Lab Wally Rosen MD CHEMISTRY ORDERABLES Performing Organization Address [facility] Co de Phone Number [facility] [place] [address] * (ABNORMAL) Comprehensive metabolic panel (non-fasting) (11/02/2023 5:26 AM EDT) [facility] Glucose Lvl 109 65 - 199 mg/dL [facility] Comment:Diabetes: >=200 mg/d L plus symptoms BUN 13 8 - 18 mg/dL [facility] Comment:result rechecked-mg Creatinine 0.27(L) 0.70 - 1.20 mg/dL [facility] Sodium 138 135 - 145 mmol/L [facility] Potassium 3.9 3.5 - 5.0 mmol/L [facility] Comment: Please note: ??Patients with WBC >100,000 may have falsely elevated Potassium levels. ??For accurate Potassium quantification in these patients send serum separator tube (gold top) for subsequent determinations. ??Contact the Clinical Chemistry Laboratory if there are any questions. Chloride 104 98 - 107 mmol/L [facility] CO2 21(L) 22 - 31 mmol/L [facility] Anion Gap 13 5 - 15 mmol/L [facility] Calcium 9.8 8.5 - 10.5 mg/dL [facility] Total Protein 7.2 6.1 - 8.0 g/dL [facility] Albumin 3.5 3.2 - 5.2 g/dL [facility] AST 13 0 - 30 unit/L [facility] ALT 27 0 - 30 unit/L [facility] Alk Phos 209(H) 35 - 105 unit/L [facility] Total Bilirubin <0.2(L) 0.2 - 1.3 mg/dL [facility] Estimated GFR 150 >=60 mL/min/1. 73 m?? [facility] Comment: This patient's estimated [...] Narrative Resulting Agency Comment Spec In Lab Wally Rosen MD CHEMISTRY ORDERABLES Performing Organization Address City/[facility]/ZIP Co de Phone Number [facility] [place] [address] * (ABNORMAL) CRP, acute inflammation (11/02/2023 5:26 AM EDT) CRP 62.8(H) <=4.9 mg/L [facility] Blood 11/02/2023 5:26 AM EDT 11/02/2023 5:44 AM EDT Narrative Resulting Agency Comment Spec In Lab Wally Rosen MD CHEMISTRY ORDERABLES Performing Organization Address City/[facility]/ZIP Co de Phone Number [facility] [place] [address] * XR Abdomen 1 view (Generic) (11/01/2023 10:14 PM EDT) WORKSTATION ID [id number] RAD Anatomical Region Laterality Modality Abdomen N/A [...] have questions please contact the health care management specialist that requested your imaging first. ? Electronically signed by: Marisela Estrella MD, [facility] ([phone]), at 11/02/2023 8:47 AM Narrative 11/02/2023 8:47 [...] who have questions please contactthe health care management specialist that requested your imaging first. Electronically signed by: Marisela Estrella MD, [facility]([phone]), at 11/02/2023 8:47 AM Mindy Da Silva G[employer]TER APPRENTICE IMG DX ORDERABLES * MRSA PCR Screen ([facility]/CGP/APD/NL) (10/31/2023 6:10 PM EDT) MRSA Result Negative Negative [facility] MRSA Interp Methicillin-resist ant Staphylococcus aureus (MRSA) is NOT DETECTED The MRSA target DNA sequences (mec and SCC) were not detected within the acceptable ranges using the Xpert MRSA NxG on the GeneXpert Dx System ([employer] ([employer])). This suggests the absence of MRSA in the patient specimen submitted for testing. This test is cleared by the U.S. Food and Drug Administration for clinical use and its performance characteristics have been verified by the [facility] at [facility]. This result does not rule out the presence of any other organisms. Rare false negative results may occur if MRSA is present at low concentrations with much higher concentrations of other organisms including MRSE or S. aureus with an empty SCC cassette. [facility] Comment: [VERIFIED DATE]07.07.24 Verified By:Marisela Jolly (Electronic Signature) Nasopharyngeal Swab 10/31/19 6:10 PM EDT 11/01/2023 8:24 AM EDT Comment:Specimen Type->Nasop haryngeal Swab Narrative Resulting Agency Comment Spec In Lab Wally Rosen MD MICROBIOLOGY - GENER AL ORDERABLES [facility] [place] [address] * Differential, Automated (10/31/2023 4:47 AM EDT) Neutrophils % 56.2 % [facility] Neutr Abs (ANC) 2.93 1.70 - 6.10 x10(3)/[facility] Lymphocytes % 32.1 % [facility] Lymphocytes Abs 1.7 0.9 - 3.2 x10(3)/[facility] Monocytes % 9.0 % [facility] Monocyte Abs 0.5 0.3 - 0.9 x10(3)/[facility] Eosinophils % 1.7 % [facility] Eosinophils Abs 0.1 0.0 - 0.4 x10(3)/[facility] Basophils % 0.8 % [facility] Basophils Abs 0.0 0.0 - 0.1 x10(3)/[facility] Immature Gran % 0.20 % [facility] Comment: Immature granulocytes(IG's)percentage and absolute count will include metamyelocytes, myelocytes, and promyelocytes. Blood smears from CBCs yielding IG's will be scanned manually for concordance. If this scan disagrees with the automated IG or if promyelocytes are noted, a manual differential will be performed. Debora Gran Abs 0.01 0.00 - 0.04 x10(3)/[facility] Blood 10/31/2023 4:47 AM EDT 10/31/2023 4:55 AM EDT Narrative Resulting Agency Comment Spec In Lab Sharron Winters MD HEMATOLOGY ORDERABLE S Performing Organization Address City/[facility]/ZIP Co de Phone Number [facility] [place] [address] * (ABNORMAL) Hemogram (10/31/2023 4:47 AM EDT) WBC 5.2 4.0 - 9.5 x10(3)/[facility] RBC 3.89(L) 4.00 - 5.21 x10(6)/[facility] Hemoglobin 11.1(L) 11.7 - 15.5 g/dL [facility] Hematocrit 33.8(L) 35.7 - 45.8 % [facility] MCV 86.9 82.6 - 94.4 fL [facility] MCH 28.5 27.1 - 32.0 pg [facility] MCHC 32.8 31.7 - 35.0 g/dL [facility] Platelets 488(H) 145 - 357 x10(3)/[facility] RDWSD 45.6 37.0 - 46.0 [facility] RDWCV 14.3(H) 11.5 - 14.1 % [facility] MPV 9.0 7.6 - 12.9 [facility] nRBC % Auto 0.0 % [facility] nRBC Abs Auto 0.000 0.000 - 0.000 x10(3)/[facility] Blood 10/31/2023 4:47 AM EDT 10/31/2023 4:55 AM EDT Narrative Resulting Agency Comment Spec In Lab Sharron Winters MD HEMATOLOGY ORDERABLE S [facility] [place] [address] * (ABNORMAL) CRP, acute inflammation (10/31/2023 4:47 AM EDT) CRP 99.2(H) <=4.9 mg/L [facility] Blood 10/31/2023 4:47 AM EDT 10/31/2023 4:55 AM EDT Narrative Resulting Agency Comment Spec In Lab Sharron Winters MD CHEMISTRY ORDERABLES [facility] [place] [address] * (ABNORMAL) Basic Metabolic Panel (non-fasting) (10/31/2023 4:47 AM EDT) Glucose Lvl 120 65 - 199 mg/dL [facility] Comment:Diabetes: >=200 mg/d L plus symptoms BUN 8 8 - 18 mg/dL [facility] Creatinine 0.27(L) 0.70 - 1.20 mg/dL [facility] Sodium 140 135 - 145 mmol/L [facility] Potassium 3.8 3.5 - 5.0 mmol/L [facility] Comment: Please note: ??Patients with WBC >100,000 may have falsely elevated Potassium levels. ??For accurate Potassium quantification in these patients send serum separator tube (gold top) for subsequent determinations. ??Contact the Clinical Chemistry Laboratory if there are any questions. Chloride 106 98 - 107 mmol/L [facility] CO2 23 22 - 31 mmol/L [facility] Anion Gap 11 5 - 15 mmol/L [facility] Calcium 9.2 8.5 - 10.5 mg/dL [facility] Estimated GFR 150 >=60 mL/min/1. 73 m?? [facility] Comment: This patient's estimated [...] Winters MD CHEMISTRY ORDERABLES Performing Organization Address [facility] Co de Phone Number [facility] [place] [address] * (ABNORMAL) Sedimentation rate (10/31/2023 4:47 AM EDT) Sed Rate 113(H) 2 - 37 mm/hr [facility] Comment: Effective April 06, 2019 new capillary photometric technology has resulted in a change in reference ranges. It is recommended that each ESR result be reviewed with its own age appropriate reference range. Blood 10/31/2023 4:47 AM EDT 10/31/2023 4:55 AM EDT Narrative Resulting Agency Comment Spec In Lab Sharron Winters MD HEMATOLOGY ORDERABLE S Performing Organization Address [facility] Co de Phone Number [facility] [place] [address] * Magnesium (10/31/2023 4:47 AM EDT) Magnesium 0.86 0.69 - 1.07 mmol/L [facility] Blood 10/31/2023 4:47 AM EDT 10/31/2023 4:55 AM EDT Narrative Resulting Agency Comment Spec In Lab Sharron Winters MD CHEMISTRY ORDERABLES Performing Organization Address [facility] Co de Phone Number [facility] [place] [address] * IR All Drainage Procedures (10/30/2023 3:23 PM EDT) Anatomical Region Laterality Modality X-Ray Angiograph y Narrative 10/30/2023 3:27 PM EDT Table formatting from the original result was not included. Images from the original result were not included. IR PROCEDURE NOTE Procedure: Paraspinal drain placement. Indication for Procedure: Per Tana Olivera Dirk is a 28 y.o. female w/ TBI [...] of treatment in 2022. Resident/Fellow: None. Attending: I, Dr. Melvin performed this procedure. ? Sharron Winters MD IMG IR ORDERABLES * Anaerobic Culture (10/30/2023 3:02 PM EDT) Pathologist [facility] Anaerobic Culture No anaerobic organisms isolated [facility] Fluid 10/30/2023 3:02 PM EDT 10/30/2023 3:47 PM EDT Comment:Infected seroma/absc ess lower mid posterior presacral region. Fluid culture. Narrative Resulting Agency Comment Spec In Lab Andrade Melvin MD MICROBIOLOGY - GENER AL ORDERABLES Performing Organization Address [facility]/ZIP Co de Phone Number [facility] [place] [address] * Body Fluid Culture, Aerobic (10/30/2023 3:02 PM EDT) Pathologist [facility] Body Fluid Culture Rare mixed bacterial morphotypes suggestive of normal cutaneous zenon [facility] Gram Stain Many Neutrophils seen No microorganisms seen. [facility] Fluid 10/30/2023 3:02 PM EDT 10/30/2023 3:47 PM EDT Comment:Infected seroma/absc ess lower mid posterior presacral region. Fluid culture. Narrative Resulting Agency Comment Spec In Lab Andrade Melvin MD MICROBIOLOGY - GENER AL ORDERABLES [facility] [place] [address] * CK (10/30/2023 4:48 AM EDT) CK, Total 29 0 - 160 unit/L [facility] Blood Venous Draw / Unknown 10/30/2023 4:48 AM EDT 10/30/2023 5:06 AM EDT Narrative Resulting Agency Comment Spec In Lab Hollie SIMMS CHEMISTRY ORDERABLES [facility] [place] [address] * Differential, Automated (10/30/2023 4:48 AM EDT) [facility] Neutrophils % 67.0 % [facility] Neutr Abs (ANC) 4.61 1.70 - 6.10 x10(3)/[facility] Lymphocytes % 22.3 % [facility] Lymphocytes Abs 1.5 0.9 - 3.2 x10(3)/[facility] Monocytes % 8.2 % [facility] Monocyte Abs 0.6 0.3 - 0.9 x10(3)/[facility] Eosinophils % 1.6 % [facility] Eosinophils Abs 0.1 0.0 - 0.4 x10(3)/[facility] Basophils % 0.6 % [facility] Basophils Abs 0.0 0.0 - 0.1 x10(3)/[facility] Immature Gran % 0.30 % [facility] Comment: Immature granulocytes(IG's)percentage and absolute count will include metamyelocytes, myelocytes, and promyelocytes. Blood smears from CBCs yielding IG's will be scanned manually for concordance. If this scan disagrees with the automated IG or if promyelocytes are noted, a manual differential will be performed. Debora Gran Abs 0.02 0.00 - 0.04 x10(3)/[facility] Blood 10/30/2023 4:48 AM EDT 10/30/2023 5:01 AM EDT Narrative Resulting Agency Comment Spec In Lab Sharron Winters MD HEMATOLOGY ORDERABLE S Performing Organization Address City/[facility]/ZIP Co de Phone Number [facility] [place] [address] * (ABNORMAL) Hemogram (10/30/2023 4:48 AM EDT) WBC 6.9 4.0 - 9.5 x10(3)/[facility] RBC 3.97(L) 4.00 - 5.21 x10(6)/[facility] Hemoglobin 11.3(L) 11.7 - 15.5 g/dL [facility] Hematocrit 34.8(L) 35.7 - 45.8 % [facility] MCV 87.7 82.6 - 94.4 fL [facility] MCH 28.5 27.1 - 32.0 pg [facility] MCHC 32.5 31.7 - 35.0 g/dL [facility] Platelets 432(H) 145 - 357 x10(3)/[facility] RDWSD 45.6 37.0 - 46.0 [facility] RDWCV 14.3(H) 11.5 - 14.1 % [facility] MPV 9.3 7.6 - 12.9 [facility] nRBC % Auto 0.0 % [facility] nRBC Abs Auto 0.000 0.000 - 0.000 x10(3)/[facility] Blood 10/30/2023 4:48 AM EDT 10/30/2023 5:01 AM EDT Narrative Resulting Agency Comment Spec In Lab Sharron Winters MD HEMATOLOGY ORDERABLE S [facility] [place] [address] * (ABNORMAL) CRP, acute inflammation (10/30/2023 4:48 AM EDT) CRP 120.3(H) <=4.9 mg/L [facility] Comment:result rechecked-KS Blood 10/30/2023 4:48 AM EDT 10/30/2023 5:01 AM EDT Narrative Resulting Agency Comment Spec In Lab Sharron Winters MD CHEMISTRY ORDERABLES [facility] [place] [address] * (ABNORMAL) Basic Metabolic Panel (non-fasting) (10/30/2023 4:48 AM EDT) Glucose Lvl 113 65 - 199 mg/dL [facility] Comment:Diabetes: >=200 mg/d L plus symptoms BUN 7(L) 8 - 18 mg/dL [facility] Creatinine 0.33(L) 0.70 - 1.20 mg/dL [facility] Sodium 136 135 - 145 mmol/L [facility] Potassium 4.1 3.5 - 5.0 mmol/L [facility] Comment: Please note: ??Patients with WBC >100,000 may have falsely elevated Potassium levels. ??For accurate Potassium quantification in these patients send serum separator tube (gold top) for subsequent determinations. ??Contact the Clinical Chemistry Laboratory if there are any questions. Chloride 102 98 - 107 mmol/L [facility] CO2 23 22 - 31 mmol/L [facility] Anion Gap 11 5 - 15 mmol/L [facility] Calcium 9.3 8.5 - 10.5 mg/dL [facility] Estimated GFR 143 >=60 mL/min/1. 73 m?? [facility] Comment: This patient's estimated [...] and symptoms in addition to eGFR. Blood 10/30/2023 4:48 AM EDT 10/30/2023 5:01 AM EDT Narrative Resulting Agency Comment Spec In Lab Sharron Winters MD CHEMISTRY ORDERABLES Performing Organization Address City/[facility] Co de Phone Number [facility] [place] [address] * (ABNORMAL) Sedimentation rate (10/30/2023 4:48 AM EDT) Sed Rate 103(H) 2 - 37 mm/hr [facility] Comment: Effective April 06, 2019 new capillary photometric technology has resulted in a change in reference ranges. It is recommended that each ESR result be reviewed with its own age appropriate reference range. Blood 10/30/2023 4:48 AM EDT 10/30/2023 5:01 AM EDT Narrative Resulting Agency Comment Spec In Lab Sharron Winters MD HEMATOLOGY ORDERABLE S Performing Organization Address [facility] Co de Phone Number [facility] [place] [address] * Magnesium (10/30/2023 4:48 AM EDT) Magnesium 0.89 0.69 - 1.07 mmol/L [facility] Blood 10/30/2023 4:48 AM EDT 10/30/2023 5:01 AM EDT Narrative Resulting Agency Comment Spec In Lab Sharron Winters MD CHEMISTRY ORDERABLES Performing Organization Address [facility] Co de Phone Number [facility] [place] [address] * POCT urine (10/29/2023 10:26 AM EDT) [facility] POC Urine HCG Negative POC Control Internal Controls Acceptable 10/29/2023 10:2 6 AM EDT Sharron Winters MD POINT OF CARE TEST O RDERABLES * (ABNORMAL) Differential, Automated (10/29/2023 8:37 AM EDT) [facility] Neutrophils % 74.9 % [facility] Neutr Abs (ANC) 6.45(H) 1.70 - 6.10 x10(3)/[facility] Lymphocytes % 16.8 % [facility] Lymphocytes Abs 1.4 0.9 - 3.2 x10(3)/[facility] Monocytes % 6.1 % [facility] Monocyte Abs 0.5 0.3 - 0.9 x10(3)/[facility] Eosinophils % 1.3 % [facility] Eosinophils Abs 0.1 0.0 - 0.4 x10(3)/[facility] Basophils % 0.6 % [facility] Basophils Abs 0.0 0.0 - 0.1 x10(3)/[facility] Immature Gran % 0.30 % [facility] Comment: Immature granulocytes(IG's)percentage and absolute count will include metamyelocytes, myelocytes, and promyelocytes. Blood smears from CBCs yielding IG's will be scanned manually for concordance. If this scan disagrees with the automated IG or if promyelocytes are noted, a manual differential will be performed. Debora Gran Abs 0.03 0.00 - 0.04 x10(3)/[facility] Blood 10/29/2023 8:37 AM EDT 10/29/2023 8:47 AM EDT Narrative Resulting Agency Comment Spec In Lab Brennan Maldonado MD HEMATOLOGY ORDERABL ES [facility] [place] [address] * (ABNORMAL) Hemogram (10/29/2023 8:37 AM EDT) WBC 8.6 4.0 - 9.5 x10(3)/[facility] RBC 3.98(L) 4.00 - 5.21 x10(6)/[facility] Hemoglobin 11.2(L) 11.7 - 15.5 g/dL [facility] Hematocrit 33.8(L) 35.7 - 45.8 % [facility] MCV 84.9 82.6 - 94.4 fL [facility] MCH 28.1 27.1 - 32.0 pg [facility] MCHC 33.1 31.7 - 35.0 g/dL [facility] Platelets 477(H) 145 - 357 x10(3)/[facility] RDWSD 44.0 37.0 - 46.0 [facility] RDWCV 14.1 11.5 - 14.1 % [facility] MPV 9.3 7.6 - 12.9 [facility] nRBC % Auto 0.0 % [facility] nRBC Abs Auto 0.000 0.000 - 0.000 x10(3)/[facility] Blood 10/29/2023 8:37 AM EDT 10/29/2023 8:47 AM EDT Narrative Resulting Agency Comment Spec In Lab Brennan Maldonado MD HEMATOLOGY ORDERABL ES [facility] [place] [address] * Lactate, whole blood, send to lab ([facility] (10/29/2023 8:37 AM EDT) Lactate WB 1.8 0.5 - 2.2 mmol/L [facility] Blood 10/29/2023 8:37 AM EDT 10/29/2023 8:47 AM EDT Narrative Resulting Agency Comment Spec In Lab Brennan Maldonado MD CHEMISTRY ORDERABLE S Performing Organization Address [facility]/ZIP Co de Phone Number [facility] [place] [address] * Phosphorus (10/29/2023 8:37 AM EDT) Pathologist [facility] Phosphorus 3.6 2.5 - 4.5 mg/dL [facility] Blood 10/29/2023 8:37 AM EDT 10/29/2023 8:47 AM EDT Narrative Resulting Agency Comment Spec In Lab Brennan Maldonado MD CHEMISTRY ORDERABLE S Performing Organization Address [facility] Co de Phone Number [facility] [place] [address] * Magnesium (10/29/2023 8:37 AM EDT) Pathologist [facility] Magnesium 0.94 0.69 - 1.07 mmol/L [facility] Blood 10/29/2023 8:37 AM EDT 10/29/2023 8:47 AM EDT Narrative Resulting Agency Comment Spec In Lab Brennan Maldonado MD CHEMISTRY ORDERABLE S Performing Organization Address [facility] Co de Phone Number [facility] [place] [address] * (ABNORMAL) Basic Metabolic Panel (non-fasting) (10/29/2023 8:37 AM EDT) Pathologist [facility] Glucose Lvl 96 65 - 199 mg/dL [facility] Comment:Diabetes: >=200 mg/d L plus symptoms BUN 6(L) 8 - 18 mg/dL [facility] Creatinine 0.31(L) 0.70 - 1.20 mg/dL [facility] Sodium 140 135 - 145 mmol/L [facility] Potassium 4.2 3.5 - 5.0 mmol/L [facility] Comment: Please note: ??Patients with WBC >100,000 may have falsely elevated Potassium levels. ??For accurate Potassium quantification in these patients send serum separator tube (gold top) for subsequent determinations. ??Contact the Clinical Chemistry Laboratory if there are any questions. Chloride 103 98 - 107 mmol/L [facility] CO2 26 22 - 31 mmol/L [facility] Anion Gap 11 5 - 15 mmol/L [facility] Calcium 9.4 8.5 - 10.5 mg/dL [facility] Estimated GFR 145 >=60 mL/min/1. 73 m?? [facility] Comment: This patient's estimated [...] and symptoms in addition to eGFR. Blood 10/29/2023 8:37 AM EDT 10/29/2023 8:47 AM EDT Narrative Resulting Agency Comment Spec In Lab Brennan Maldonado MD CHEMISTRY ORDERABLE S [facility] [place] [address] * (ABNORMAL) Urinalysis Microscopic Exam (10/29/2023 2:33 AM EDT) RBC UA >100(H) 0 - 4 /HPF [facility] WBC UA 4 0 - 5 /HPF [facility] Squam Epith UA 4 <=4 /HPF [facility] Hyaline Cast UA <1 0 - 2 /LPF [facility] Comment: Interpret results with caution, microscopic results are from suboptimal specimen volume Straight Catheter Urine 10/29/2023 2:33 AM EDT 10/29/2023 2:43 AM EDT Narrative Resulting Agency Comment Spec In Lab Sharron Winters MD URINE ORDERABLES Performing Organization Address City/[facility] Co de Phone Number [facility] [place] [address] * (ABNORMAL) Urinalysis with reflex Culture (10/29/2023 2:33 AM EDT) Glucose UA Negative Negative mg/dL [facility] Protein UA 30(A) Negative mg/dL [facility] Bilirubin UA Negative Negative mg/dL [facility] Comment: Clinical correlation required for positive Urine Bilirubin results as false positive may occur with some drugs and drug related products. If a false positive is suspected a serum total bilirubin should be considered if clinically indicated. Urobilinogen UA Normal Normal mg/dL [facility] pH UA 6.5 5.0 - 8.0 [facility] Blood UA Large(A) Negative mg/dL [facility] Ketones UA Negative Negative mg/dL [facility] Nitrite UA Negative Negative [facility] Leukocytes UA Negative Negative mcL [facility] Appearance UA Clear Clear [facility] Spec [place] UA >=1.030(A) 1.005 - 1.030 [facility] Color UA Yellow Yellow [facility] Culture Reflexed No [facility] Straight Catheter Urine 10/29/2023 2:33 AM EDT 10/29/2023 2:43 AM EDT Narrative Resulting Agency Comment Spec In Lab Sharron Winters MD URINE ORDERABLES [facility] [place] [address] * (ABNORMAL) CRP, acute inflammation (10/29/2023 2:08 AM EDT) CRP 133.4(H) <=4.9 mg/L [facility] Blood 10/29/2023 2:08 AM EDT 10/29/2023 2:33 AM EDT Narrative Resulting Agency Comment Spec In Lab Sharron Winters MD CHEMISTRY ORDERABLES Performing Organization Address [facility] Co de Phone Number [facility] [place] [address] * Phosphorus (10/29/2023 2:08 AM EDT) Phosphorus 3.1 2.5 - 4.5 mg/dL [facility] Blood 10/29/2023 2:08 AM EDT 10/29/2023 2:33 AM EDT Narrative Resulting Agency Comment Spec In Lab Sharron Winters MD CHEMISTRY ORDERABLES Performing Organization Address [facility] Co de Phone Number [facility] [place] [address] * (ABNORMAL) Sedimentation rate (10/29/2023 2:08 AM EDT) Sed Rate >119(H) 2 - 37 mm/hr [facility] Comment: Effective April 06, 2019 new capillary photometric technology has resulted in a change in reference ranges. It is recommended that each ESR result be reviewed with its own age appropriate reference range. Blood 10/29/2023 2:08 AM EDT 10/29/2023 2:33 AM EDT Narrative Resulting Agency Comment Spec In Lab Sharron Winters MD HEMATOLOGY ORDERABLE S Performing Organization Address City/[facility]/ZIP Co de Phone Number [facility] [place] [address] * Magnesium (10/29/2023 2:08 AM EDT) Magnesium 0.85 0.69 - 1.07 mmol/L [facility] Blood 10/29/2023 2:08 AM EDT 10/29/2023 2:33 AM EDT Narrative Resulting Agency Comment Spec In Lab Sharron Winters MD CHEMISTRY ORDERABLES [facility] [place] [address] * CT Lumbar Spine w Contrast (10/28/2023 9:50 PM EDT) WORKSTATION ID [id number] RAD Anatomical Region Laterality Modality L-spine Computed [...] have questions please contact the health care management specialist that requested your imaging first. ? Narrative 10/28/2023 10:17 PM EDT EXAMINATION: CT [...] who have questions please contactthe health care management specialist that requested your imaging first. Siomara Hernandez MD IMG CT ORDERABLES * Differential, Automated (10/28/2023 9:00 PM EDT) Neutrophils % 66.3 % [facility] Neutr Abs (ANC) 5.75 1.70 - 6.10 x10(3)/[facility] Lymphocytes % 24.1 % [facility] Lymphocytes Abs 2.1 0.9 - 3.2 x10(3)/[facility] Monocytes % 7.2 % [facility] Monocyte Abs 0.6 0.3 - 0.9 x10(3)/[facility] Eosinophils % 1.4 % [facility] Eosinophils Abs 0.1 0.0 - 0.4 x10(3)/[facility] Basophils % 0.5 % [facility] Basophils Abs 0.0 0.0 - 0.1 x10(3)/[facility] Immature Gran % 0.50 % [facility] Comment: Immature granulocytes(IG's)percentage and absolute count will include metamyelocytes, myelocytes, and promyelocytes. Blood smears from CBCs yielding IG's will be scanned manually for concordance. If this scan disagrees with the automated IG or if promyelocytes are noted, a manual differential will be performed. Debora Gran Abs 0.04 0.00 - 0.04 x10(3)/[facility] Blood 10/28/2023 9:00 PM EDT 10/28/2023 9:17 PM EDT Narrative Resulting Agency Comment Spec In Lab Esteban Sonamaxineshmuel GAS FITTER APPRENTICE HEMATOLOGY ORDERABLE S [facility] [place] [address] * (ABNORMAL) Hemogram (10/28/2023 9:00 PM EDT) WBC 8.7 4.0 - 9.5 x10(3)/[facility] RBC 4.28 4.00 - 5.21 x10(6)/[facility] Hemoglobin 11.9 11.7 - 15.5 g/dL [facility] Hematocrit 36.5 35.7 - 45.8 % [facility] MCV 85.3 82.6 - 94.4 [facility] MCH 27.8 27.1 - 32.0 pg [facility] MCHC 32.6 31.7 - 35.0 g/dL [facility] Platelets 525(H) 145 - 357 x10(3)/[facility] RDWSD 43.8 37.0 - 46.0 [facility] RDWCV 14.2(H) 11.5 - 14.1 % [facility] MPV 9.2 7.6 - 12.9 [facility] nRBC % Auto 0.0 % [facility] nRBC Abs Auto 0.000 0.000 - 0.000 x10(3)/[facility] Blood 10/28/2023 9:00 PM EDT 10/28/2023 9:17 PM EDT Narrative Resulting Agency Comment Spec In Lab Esteban Bacaicoa GAS FITTER APPRENTICE HEMATOLOGY ORDERABLE S Performing Organization Address City/[facility]/ZIP Co de Phone Number [facility] [place] [address] * (ABNORMAL) CRP, acute inflammation (10/28/2023 9:00 PM EDT) CRP 148.3(H) <=4.9 mg/L [facility] Blood 10/28/2023 9:00 PM EDT 10/28/2023 9:17 PM EDT Narrative Resulting Agency Comment Spec In Lab Esteban Bacaicoa GAS FITTER APPRENTICE CHEMISTRY ORDERABLES Performing Organization Address [facility] Co de Phone Number [facility] [place] [address] * (ABNORMAL) Sedimentation rate (10/28/2023 9:00 PM EDT) Sed Rate >119(H) 2 - 37 mm/hr [facility] Comment: Effective April 06, 2019 new capillary photometric technology has resulted in a change in reference ranges. It is recommended that each ESR result be reviewed with its own age appropriate reference range. Blood 10/28/2023 9:00 PM EDT 10/28/2023 9:17 PM EDT Narrative Resulting Agency Comment Spec In Lab Esteban Bacaicoa GAS FITTER APPRENTICE HEMATOLOGY ORDERABLE S Performing Organization Address [facility]/ZIP Co de Phone Number [facility] [place] [address] * (ABNORMAL) Basic Metabolic Panel (non-fasting) (10/28/2023 9:00 PM EDT) Glucose Lvl 88 65 - 199 mg/dL [facility] Comment:Diabetes: >=200 mg/d L plus symptoms BUN 7(L) 8 - 18 mg/dL [facility] Creatinine 0.25(L) 0.70 - 1.20 mg/dL [facility] Sodium 137 135 - 145 mmol/L [facility] Potassium Not Perf 3.5 - 5.0 [facility] Comment: Unable to quantitate due to sample hemolysis. ??Sample redraw suggested. Called by: PRATIK, Read back by: EDMUND KAMARA, Date/Time:10/28/23 22:39. Please note: ??Patients with WBC >100,000 may have falsely elevated Potassium levels. ??For accurate Potassium quantification in these patients send serum separator tube (gold top) for subsequent determinations. ??Contact the Clinical Chemistry Laboratory if there are any questions. Chloride 102 98 - 107 mmol/L [facility] CO2 25 22 - 31 mmol/L [facility] Anion Gap 10 5 - 15 mmol/L [facility] Calcium 9.4 8.5 - 10.5 mg/dL [facility] Estimated GFR 153 >=60 mL/min/1. 73 m?? [facility] Comment: This patient's estimated [...] and symptoms in addition to eGFR. Blood 10/28/2023 9:00 PM EDT 10/28/2023 9:17 PM EDT Narrative Resulting Agency Comment Spec In Lab Esteban King APRN CHEMISTRY ORDERABLES [facility] [place] [address] documented in this encounter Visit Diagnoses Diagnosis Abscess- Primary Cellulitis and abscess of unspecified site Abscess Cellulitis and abscess of unspecified site 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 Acute osteomyelitis, other specified site documented in this encounter Admitting Diagnoses Diagnosis Abscess Cellulitis and abscess of unspecified site documented in this encounter Administered Medications Inactive Administered Medications - up to 3 most recent administrations Medication Order MAR Action Action Date Dose Rate Site acetaminophen (Tylenol) tablet 650 mg 650 mg, Oral, EVERY 6 HOURS PRN, Starting on Dianne 10/29/23 at 0059, Until 10/31/23 at 1831, Pain, Maximum dose of acetaminophen is 4,000 mg from all sources in 24 hours. When ordered for pain, acetaminophen should be given even when other ordered pain medications are indicated., Routine Given 10/31/2023 2:21 PM EDT 650 mg Given 10/30/2023 8:01 PM EDT 650 mg acetaminophen (Tylenol) tablet 650 mg 650 mg, Oral, EVERY 4 HOURS PRN, Starting on 10/31/23 at 1831, Until Thu11/03/23 at 1925, Pain, Maximum dose of acetaminophen is 4,000 mg from all sources in 24 hours. When ordered for pain, acetaminophen should be given even when other ordered pain medications are indicated., Routine Given 11/02/2023 8:33 AM EDT 650 mg Given 11/02/2023 4:32 AM EDT 650 mg Given 11/01/2023 9:31 PM EDT 650 mg baclofen (Lioresal) tablet 10 mg 10 mg, Oral, 3 TIMES DAILY, First dose on Thu10/28/23 at 2155, Until Discontinued, Routine Given 11/03/2023 2:04 PM EDT 10 mg Given 11/03/2023 9:06 AM EDT 10 mg Given 11/02/2023 9:23 PM EDT 10 mg bisacodyL (Dulcolax) suppository 10 mg 10 mg, Rectal, DAILY PRN, Starting on Thu11/02/23 at 0833, Until Thu11/03/23 at 1925, Constipation, Give if no BM within last 24 hr and rectal fullness is reported or assessed. Give concomitantly with any scheduled bowel medications ordered. , Routine bisacodyl EC (Dulcolax) tablet 10 mg 10 mg, Oral, 2 TIMES DAILY PRN, Starting on Thu11/02/23 at 0833, Until Thu11/03/23 at 1925, Constipation, Give if no BM after 24 hr after prior interventions. BM expected in 6-8 hours. If BM desired sooner, use next ordered agent. Give concomitantly with any scheduled bowel medications ordered., Routine cefTRIAXone (Rocephin) 2 g vial attach to sodium chloride 0.9% 50 mL Mini-Bag Plus 2 g, Intravenous, EVERY 24 HOURS, First dose (after last modification) on Thu10/30/23 at 1700, Until Discontinued, Administer over 30 Minutes, Tolerated ceftriaxone in past, Indication for (Active or Suspected): Bone/Joint New Bag 11/02/2023 5:13 PM EDT 2 g 100 mL/h r New Bag 11/01/2023 5:10 PM EDT 2 g 100 mL/hr New Bag 10/31/2023 6:16 PM EDT 2 g 100 mL/hr cefTRIAXone (Rocephin) 2 g vial attach to sodium chloride 0.9% 50 mL Mini-Bag Plus 2 g, Intravenous, EVERY 24 HOURS, First dose (after last modification) on Thu11/03/23 at 1600, Until Discontinued, Administer over 30 Minutes, Tolerated ceftriaxone in past, Indication for (Active or Suspected): Bone/Joint New Bag 11/03/2023 4:02 PM EDT 2 g 100 mL/h r DAPTOmycin (Cubicin) 450 mg in sodium chloride 0.9% 59 mL 450 mg, Intravenous, at 118 mL/hr, EVERY 24 HOURS, First dose on Thu10/30/23 at 2000, Until Discontinued, Dose rounded per P&T policy, Routine New Bag 11/01/2023 9:01 PM EDT 450 mg 118 mL/hr New Bag 10/31/2023 10:43 PM EDT 450 mg 118 mL/hr New Bag 10/30/2023 8:11 PM EDT 450 mg 118 mL/hr enoxaparin (Lovenox) (40 mg/0.4 mL) subcutaneous injection 40 mg 40 mg, Subcutaneous, NIGHTLY, First dose on Thu10/29/23 at 2100, Until Discontinued, Routine Given 11/02/2023 9:23 PM EDT 40 mg Given 11/01/2023 9:01 PM EDT 40 mg Given 10/31/2023 10:42 PM EDT 40 mg iohexoL (Omnipaque) (350 mg/mL) solution 0-200 mL 0-200 mL, Intravenous, ONCE PRN, 1 dose, Starting on Thu10/28/23 at 2136, Until Thu10/28/23 at 2151, Per Protocol, Warning Vesicant/Irritant Medication , Radiology Contrast, Routine Given 10/28/2023 9:51 PM EDT 110 mLs lactated Ringers 500 mL IV bolus at 500 mL/hr, Intravenous, ONCE, 1 dose, On Thu10/29/23 at 0755 New Bag 10/29/2023 8:44 AM EDT 500 mL/hr lactated Ringers 500 mL IV bolus at 250 mL/hr, Intravenous, ONCE, 1 dose, On Thu10/29/23 at 1151 Continued Bag 10/29/2023 11:51 AM EDT 250 mL/hr lactobacillus acidophilus capsule 1 capsule 1 capsule, Oral, DAILY, First dose on Thu10/29/23 at 0900, Until Discontinued, Routine Given 11/03/2023 9:06 AM EDT 1 capsule Given 11/02/2023 8:33 AM EDT 1 capsule Given 11/01/2023 9:52 AM EDT 1 capsule lactulose (Chronulac) (0.67 gram/mL) oral liquid 20 g 20 g, Oral, DAILY PRN, Starting on Thu11/02/23 at 0833, Until Thu11/03/23 at 1925, Constipation, Give if no BM 24 hr after prior interventions or if BM is desired within 2 hr. Give concomitantly with any scheduled bowel medications ordered, Routine lactulose (Chronulac) (0.67 gram/mL) oral liquid 20 g 20 g, Oral, DAILY PRN, Starting on Thu11/02/23 at 0833, Until Thu11/03/23 at 1925, Constipation, Give an additional (2nd) dose of lactulose 2 hr after 1st dose if still no BM. Disregard if 1st dose of lactulose not ordered. Give concomitantly with any scheduled bowel medications ordered. , Routine lidocaine (Xylocaine) 1% (10 mg/mL) injection 10 mg 10 mg, Subcutaneous, ONCE, 1 dose, On Thu10/30/23 at 1430, For use in Interventional Radiology (IR) only for procedure with direct provider supervision and verbal order., Angio/IR (Intra-Procedure), Routine Given 10/30/2023 3:02 PM EDT 10 mg magnesium citrate oral liquid 296 mL 296 mL, Oral, ONCE PRN, 1 dose, Starting on Thu11/02/23 at 0833, Until Thu11/03/23 at 1925, Constipation, Give if no BM 2 hr after previous interventions. If 2 hr after mag citrate there is still no BM, see order for tap water enema, if placed. Give concomitantly with any scheduled bowel medications ordered., Routine midazolam (pf) (Versed) (1 mg/mL) multi-dose injection 0.5-1 mg 0.5-1 mg, Intravenous, EVERY 3 MIN PRN, Starting on Thu10/30/23 at 1341, Until Thu10/30/23 at 1535, Sedation, For use in Interventional Radiology (IR) only for procedural sedation with direct provider supervision and verbal order. - Start dose: 1 mg (Reduce dose to 0.5 mg if history of sedation sensitivity). - Titration dose: 0.5 mg - 1 mg (based on patient response) every 3 minutes PRN to obtain RASS score of -3. Maximum dose: 1 mg/dose, 5 mg/hour., Angio/IR (Intra-Procedure), Routine Given 10/30/2023 3:08 PM EDT 0.5 mg Given 10/30/2023 3:04 PM EDT 0.5 mg Given 10/30/2023 2:55 PM EDT 0.5 mg ondansetron (pf) (Zofran) (2 mg/mL) injection 4 mg 4 mg, Intravenous, EVERY 8 HOURS PRN, Starting on Thu10/30/23 at 1355, Until Thu11/03/23 at 1925, Nausea Given 10/30/2023 2:21 PM EDT 4 mg polyethylene glycoL (Miralax) packet 17 g 17 g, Oral, DAILY, First dose on Thu10/29/23 at 0900, Until Discontinued, Routine Given 11/03/2023 9:06 AM EDT 17 g Given 11/02/2023 8:33 AM EDT 17 g Given 11/01/2023 9:52 AM EDT 17 g polyethylene glycoL (Miralax) packet 17 g 17 g, Oral, DAILY PRN, Starting on Thu11/02/23 at 0833, Until Thu11/03/23 at 1925, Constipation, Give if no BM within last 24 hr. Give concomitantly with any scheduled bowel medications ordered. , Routine senna (Senokot) tablet 17.2 mg 17.2 mg, Oral, NIGHTLY, First dose on Thu10/29/23 at 2100, Until Discontinued, Routine Given 11/02/2023 9:23 PM EDT 17.2 mg Given 11/01/2023 9:01 PM EDT 17.2 mg Given 10/31/2023 10:42 PM EDT 17.2 mg sodium chloride 0.9 % (flush) (BD PosiFlush Normal Saline 0.9) flush 5 mL 5 mL, Intravenous, 2 TIMES DAILY, First dose on Thu10/29/23 at 0102, Until Discontinued, Routine Given 11/02/2023 8:33 AM EDT 5 mLs Given 11/01/2023 9:31 PM EDT 5 mLs Given 11/01/2023 9:52 AM EDT 5 mLs sodium chloride 0.9 % (flush) (BD PosiFlush Normal Saline 0.9) flush 5 mL 5 mL, Intravenous, 2 TIMES DAILY, First dose on Thu10/30/23 at 1430, Until Discontinued, Angio/IR (Day of Procedure), Routine Given 10/30/2023 3:05 PM EDT 5 mLs documented in this encounter Active and Recently Administered Medications Times are shown in EDT. Scheduled Medication Order 11/01/2023 11/02/2023 11/03/2023 baclofen (Lioresal) tablet 10 mg 10 mg, Oral, 3 TIMES DAILY, First dose on Thu10/28/23 at 2155, Until Discontinued, Routine 0951 (Given - Provider: Maryana Ctotrell RN)1331 (Given - Provider: Muriel Sanchez RN)210 (Given - Provider: Arielle Contreras RN) 0833 (Given - Provider: Maryana Cottrell RN)1315 (Given - Provider: Maryana Cottrell RN)2123 (Given - Provider: Arielle Contreras RN) 0906 (Given - Provider: Diandra Luo RN)1404 (Given - Provider: Diandra Luo RN) cefTRIAXone (Rocephin) 2 g vial attach to sodium chloride 0.9% 50 mL Mini-Bag Plus (CANCELED) 2 g, Intravenous, EVERY 24 HOURS, First dose (after last modification) on Thu10/30/23 at 1700, Until Discontinued, Administer over 30 Minutes, Tolerated ceftriaxone in past, Indication for (Active or Suspected): Bone/Joint 1710 (New Bag - Provider: Maryana Cottrell RN)1740 (Stopped - Provider: Maryana Cottrell RN) 1713 (New Bag - Provider: Maryana Cottrell RN)1743 (Stopped - Provider: Arielle Contreras RN) cefTRIAXone (Rocephin) 2 g vial attach to sodium chloride 0.9% 50 mL Mini-Bag Plus 2 g, Intravenous, EVERY 24 HOURS, First dose (after last modification) on Thu11/03/23 at 1600, Until Discontinued, Administer over 30 Minutes, Tolerated ceftriaxone in past, Indication for (Active or Suspected): Bone/Joint 1602 (New Bag - Provider: Diandra Luo RN)1632 (Stopped - Provider: Diandra Luo RN) DAPTOmycin (Cubicin) 450 mg in sodium chloride 0.9% 59 mL (CANCELED) 450 mg, Intravenous, at 118 mL/hr, EVERY 24 HOURS, First dose on Thu10/30/23 at 2000, Until Discontinued, Dose rounded per P&T policy, Routine 2100 (New Bag - Provider: Arielle Contreras RN)2130 (Stopped - Provider: Arielle Contreras RN) enoxaparin (Lovenox) (40 mg/0.4 mL) subcutaneous injection 40 mg 40 mg, Subcutaneous, NIGHTLY, First dose on Thu10/29/23 at 2100, Until Discontinued, Routine 2100 (Given - Provider: Arielle Contreras RN) 2122 (Given - Provider: Arielle Contreras RN) lactobacillus acidophilus capsule 1 capsule 1 capsule, Oral, DAILY, First dose on Thu10/29/23 at 0900, Until Discontinued, Routine 951 (Given - Provider: Maryana Cottrell RN) 08 (Given - Provider: Maryana Cottrell RN) 09 (Given - Provider: Diandra Luo RN) polyethylene glycoL (Miralax) packet 17 g 17 g, Oral, DAILY, First dose on Thu4/24 at 0900, Until Discontinued, Routine 951 (Given - Provider: Maryana Cottrell RN) 08 (Given - Provider: Maryana Cottrell RN) 09 (Given - Provider: Diandra Luo RN) senna (Senokot) tablet 17.2 mg 17.2 mg, Oral, NIGHTLY, First dose on Dianne 10/29/23 at 2100, Until Discontinued, Routine 2100 (Given - Provider: Arielle Contreras RN) 2122 (Given - Provider: Arielle Contreras RN) sodium chloride 0.9 % (flush) (BD PosiFlush Normal Saline 0.9) flush 5 mL 5 mL, Intravenous, 2 TIMES DAILY, First dose on Dianne 10/29/23 at 0102, Until Discontinued, Routine 951 (Given - Provider: Maryana Cottrell RN)2130 (Given - Provider: Arielle Contreras RN) 832 (Given - Provider: Maryana Cottrell RN)2099 (Not Given - Provider: Arielle Contreras RN - Reason: See comment - Comment: no access) 905 (Not Given - Provider: Diandra Luo RN - Reason: Loss of access) PRN Medication Order 11/01/2023 11/02/2023 11/03/2023 acetaminophen (Tylenol) tablet 650 mg 650 mg, Oral, EVERY 4 HOURS PRN, Starting on 10/31/23 at 1831, Until Thu11/03/23 at 1925, Pain, Maximum dose of acetaminophen is 4,000 mg from all sources in 24 hours. When ordered for pain, acetaminophen should be given even when other ordered pain medications are indicated., Routine 951 (Given - Provider: Maryana Cottrell RN)144 (Given - Provider: Muriel Sanchez RN)2130 (Given - Provider: Arielle Contreras RN) 431 (Given - Provider: Arielle Contreras RN)832 (Given - Provider: Maryana Cottrell RN) bisacodyL (Dulcolax) suppository 10 mg(Linked Group 1) 10 mg, Rectal, DAILY PRN, Starting on 11/02/23 at 0833, Until Thu11/03/23 at 1925, Constipation, Give if no BM within last 24 hr and rectal fullness is reported or assessed. Give concomitantly with any scheduled bowel medications ordered. , Routine bisacodyl EC (Dulcolax) tablet 10 mg(Linked Group 1) 10 mg, Oral, 2 TIMES DAILY PRN, Starting on Thu11/02/23 at 0833, Until Thu11/03/23 at 1925, Constipation, Give if no BM after 24 hr after prior interventions. BM expected in 6-8 hours. If BM desired sooner, use next ordered agent. Give concomitantly with any scheduled bowel medications ordered., Routine lactulose (Chronulac) (0.67 gram/mL) oral liquid 20 g(Linked Group 1) 20 g, Oral, DAILY PRN, Starting on Thu11/02/23 at 0833, Until Thu11/03/23 at 1925, Constipation, Give if no BM 24 hr after prior interventions or if BM is desired within 2 hr. Give concomitantly with any scheduled bowel medications ordered, Routine lactulose (Chronulac) (0.67 gram/mL) oral liquid 20 g(Linked Group 1) 20 g, Oral, DAILY PRN, Starting on Thu11/02/23 at 0833, Until Thu11/03/23 at 1925, Constipation, Give an additional (2nd) dose of lactulose 2 hr after 1st dose if still no BM. Disregard if 1st dose of lactulose not ordered. Give concomitantly with any scheduled bowel medications ordered. , Routine lidocaine (Xylocaine) 1% (10 mg/mL) injection 3 mg 3 mg (0.3 mL), Subcutaneous, ONCE PRN, 1 dose, Starting on Thu10/29/23 at 0100, Until Thu11/03/23 at 1925, for discomfort with PIV insertion, Routine magnesium citrate oral liquid 296 mL(Linked Group 1) 296 mL, Oral, ONCE PRN, 1 dose, Starting on Thu11/02/23 at 0833, Until Thu11/03/23 at 1925, Constipation, Give if no BM 2 hr after previous interventions. If 2 hr after mag citrate there is still no BM, see order for tap water enema, if placed. Give concomitantly with any scheduled bowel medications ordered., Routine melatonin tablet 3 mg 3 mg, Oral, NIGHTLY PRN, Starting on Thu10/29/23 at 0100, Until Thu11/03/23 at 1925, Sleep, Sleep, Routine ondansetron (pf) (Zofran) (2 mg/mL) injection 4 mg 4 mg, Intravenous, EVERY 8 HOURS PRN, Starting on Thu10/30/23 at 1355, Until Thu11/03/23 at 1925, Nausea polyethylene glycoL (Miralax) packet 17 g(Linked Group 1) 17 g, Oral, DAILY PRN, Starting on Thu11/02/23 at 0833, Until Thu11/03/23 at 192, Constipation, Give if no BM within last 24 hr. Give concomitantly with any scheduled bowel medications ordered. , Routine sodium chloride 0.9 % (flush) (BD PosiFlush Normal Saline 0.9) flush 5-20 mL 5-20 mL, Intravenous, EVERY 1 MIN PRN, Starting on Thu10/29/23 at 0100, Until Thu11/03/23 at 192, flush, Flush pertains to all indwelling lines. Flush per protocol found in the job aid using the link provided on this medication record., Routine Linked Groups Order Group 1: polyethylene glycoL (Miralax) packet 17 gJump to med 17 g, Oral, DAILY PRN, Starting on Thu11/02/23 at 0833, Until Thu11/03/23 at 192, Constipation, Give if no BM within last 24 hr. Give concomitantly with any scheduled bowel medications ordered. , Routine And bisacodyL (Dulcolax) suppository 10 mgJump to med 10 mg, Rectal, DAILY PRN, Starting on Thu11/02/23 at 0833, Until Thu11/03/23 at 192, Constipation, Give if no BM within last 24 hr and rectal fullness is reported or assessed. Give concomitantly with any scheduled bowel medications ordered. , Routine And bisacodyl EC (Dulcolax) tablet 10 mgJump to med 10 mg, Oral, 2 TIMES DAILY PRN, Starting on Thu11/02/23 at 0833, Until Thu11/03/23 at 192, Constipation, Give if no BM after 24 hr after prior interventions. BM expected in 6-8 hours. If BM desired sooner, use next ordered agent. Give concomitantly with any scheduled bowel medications ordered., Routine And lactulose (Chronulac) (0.67 gram/mL) oral liquid 20 gJump to med 20 g, Oral, DAILY PRN, Starting on Thu11/02/23 at 0833, Until Thu11/03/23 at 1925, Constipation, Give if no BM 24 hr after prior interventions or if BM is desired within 2 hr. Give concomitantly with any scheduled bowel medications ordered, Routine And lactulose (Chronulac) (0.67 gram/mL) oral liquid 20 gJump to med 20 g, Oral, DAILY PRN, Starting on Thu11/02/23 at 0833, Until Thu11/03/23 at 1925, Constipation, Give an additional (2nd) dose of lactulose 2 hr after 1st dose if still no BM. Disregard if 1st dose of lactulose not ordered. Give concomitantly with any scheduled bowel medications ordered. , Routine And magnesium citrate oral liquid 296 mLJump to med 296 mL, Oral, ONCE PRN, 1 dose, Starting on Thu11/02/23 at 0833, Until Thu11/03/23 at 1925, Constipation, Give if no BM 2 hr after previous interventions. If 2 hr after mag citrate there is still no BM, see order for tap water enema, if placed. Give concomitantly with any scheduled bowel medications ordered., Routine And Tap water enema (CANCELED) Routine, DAILY PRN, Starting on Thu11/02/23 at 0833, Until Specified, Give if no BM in at least 24 hr and all other ordered bowel regimen medications have been unsuccessful. Give concomitantly with any scheduled bowel medications ordered. documented in this encounter Care Teams Auto Transport Driver Relationship Specialty Start Date End Date Lorna Bal, GAS FITTER APPRENTICE [address] [place] [address] PCP - General Family Medicine 05/27/18 documented as of this encounter
--- OUTSIDE RECORDS SUMMARY | 2023-11-09 18:11 | XMS_ITS | Encounter Summary ---
Author Organization [facility] Address [facility] [place] [address] Care Team Providers Care Survey Researcher Name Role Phone Lorna Bal APRN Primary Care Provider [phone] Encounter Details Date Type Department Care Team (Late st Contact Info) Description 10/28/2023 Telephone [place] [address] Neva Thorpe, RN Social History Tobacco Use Types Packs/Day Years Used Date Smoking Tobacco: Never Passive Smoke Exposure: Never Smokeless Tobacco: Never Comments:NO SMOKERS IN THE H OME Alcohol Use Standard Drinks/Week Comments No 0 (1 standard drink = 0.6 oz pur e alcohol) [facility] Utilities Answer Date Recorded In the past 12 months has e [employer], gas, oil, or water [employer] threatened to shut off services in your [...] any time in the past 12 m [facility], were you homeless or living in a halfway (including now)? No 10/29/2023 IPV Inpatient Questions [...] encounter Miscellaneous Notes * Telephone Encounter - Neva Thorpe RN - 10/28/2023 4:[address] Hollie Ambriz: Sorry I'm not at a computer right now but can you document a note to have the ED HOLD antibiotics until imaging is done? That is assuming she's not septic of course. I'd say like if able, hold antibiotics while eval is being done to optimize cultures if able to be obtained documented in this encounter Plan of Treatment Upcoming Encounters Date Type Department Care Team (Late st Contact Info) Description 11/19/2023 2:30 PM EDT TH Visit (TeleHealth) Infectious Disease at [facility] [place] [address] [facility] [place] [address] 11/30/2023 12:50 PM EDT Appointment [place] [phone] 12/03/2023 12:30 PM EDT Office [place] [phone] Hollie Ambriz MD [facility] [place] [address] documented as of this encounter Visit Diagnoses Not on filedocumented in this encounter Care Teams Survey Researcher Relationship Specialty Start Date End Date Lorna Bal APRN [address] [place] [address] PCP - General Family Medicine 05/27/18 documented as of this encounter
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
--- OUTSIDE RECORDS SUMMARY | 2023-11-09 18:11 | XMS_ITS | Encounter Summary ---
[place] [address] Care Team Providers Care Chain Saw Mechanic Name Role Phone Lorna Bal APRN Primary Care Provider [phone] Encounter Details Date Type Department Care Team (Latest Contact Info) Description 09/24/2023 Travel Social History Tobacco Use Types Packs/Day Years Used Date Smoking Tobacco: Never Smokeless Tobacco: Never Comments:NO SMOKERS IN THE H OME Alcohol Use Standard Drinks/Week Comments No 0 (1 standard drink = 0.6 oz pur e alcohol) COUNT [facility]CLUDES [facility] Inpatient Questions Answer Date Recorded Does Anyone [...] Upcoming Encounters Date Type Department Care Team ( Contact Info) Description 11/19/2023 2:30 PM EDT TH Visit (TeleHealth) Infectious Disease at [facility] [place] [phone] Lilli Joy APRN [facility] [place] [address] 11/30/2023 12:50 PM EDT Appointment [place] [address] 12/03/2023 12:30 PM EDT Office Visit [place] [address] Hollie Ambriz MD [facility] [place] [address] documented as of this encounter Visit Diagnoses Not on filedocumented in this encounter Care Teams Chain Saw Mechanic Relationship Specialty Start Date End Date Lorna Bal APRN [address] [place] [address] PCP - General Family Medicine 05/27/18 documented as of this encounter
--- OUTSIDE RECORDS SUMMARY | 2023-11-09 18:11 | XMS_ITS | Encounter Summary ---
Author Organization Formerly [facility] Address [facility] [place] [address] Care Team Providers Care Dining Room Maid Name Role Phone Lorna Bal APRN Primary Care Provider [phone] Encounter Details Date Type Department Care Team (Latest Contact Info) Description 07/02/2023 11:00 AM EST TH Visit (TeleHealth) [place] [id number] George Tipton MD [facility] [place] [address] 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; [facility] 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 Social History Tobacco Use Types Packs/Day Years Used Date Smoking Tobacco: Never Smokeless Tobacco: Never Comments:NO SMOKERS IN THE H OME Alcohol Use Standard Drinks/Week Comments No 0 (1 standard drink = 0.6 oz pur e alcohol) [facility] Inpatient Questions Answer Date Recorded Does Anyone [...] on file documented as of this encounter Progress Notes * George Tipton MD - 07/02/2023 11:00 AM EST INFECTIOUS DISEASE CLINIC - OUTPATIENT FOLLOW-UP NOTE History of Present Illness: Tana Cavazos is a 27 y.o. female with history of traumatic brain injury with spastic quadriplegia,cerebral palsy and complex spinal history including scoliosis, bilateral Girdlestone in 2010, who was admitted in May for redness and tenderness over midline surgical scar and failed outpatient a ntibiotics. CT scan at that time showed 2 irregular collections within the posterior lumbar region.It appears more inferior collection was around L3-L4 and extended to encompass right-sided gluteal component that surrounding a dislocated screw in the more superior collection appears to be around T12. She underwent IR guided drainage. Cultures remained negative. It was decided to monitor off antibiotics. Subsequently she developed fever and hypotension. CT scan showed loculated gluteal abscess.She had E coli bacteremia during that hospitalization. She was discharged on PO ciprofloxacin to treat spinal collections gluteal abscess and bacteremia. Patient was readmitted on 07/22 with increased redness and purulent drainage from the same area. Repeat imaging showed multiple paraspinal and spinal collections. Initially levofloxacin was started. patient underwent IR drainage on 07/24. After deliberation it was decided to continue levofloxacin with weekly monitoring and use surgery as a last resort. Blood cultures were positive for Pseudomonas or yzihabitan. Levofloxacin was extended for 6 more weeks. After completing therapy she was switched to doxycycline to cover corynebacterium and strep species. On 08/27 Superficial cultures at OSH were positive for Staphylococcus hemolyticus and S. Capitis. She was evaluated in ID clinic on 09/10, Doxycyline was continued and she was switched to Bactrim on 09/25. She has remained on bactrim. Followed up with in admire. MRI was not possible sec. To hardware. CRP/ESR was trending upwards. NSG referred her to [facility] for surgery. The patient went to the OR on 02/11 for R pelvic srew revision and washout with complex plastics closure. She was started on vancomycin and pip/tazo. OR cultures remained negative. Post-operatively, patient had nausea/vomiting and hypotension requiring pressors and IV resuscitation. She was fluid resuscitated. PICC line was placed 02/13. She developed pressor-dependent hypotension and was transferred to the [facility]. ID recommended continuing vancomycin and zosyn until 03/25. Patient was discharged home. She completed her therapy on 03/25. She has a persistently elevated CRP. Repeat CT A/P lumbar spineshowed Interval development of complex masslike lesion in the left posterior paraspinous tissues. While the metallic hardware precludes accurate assessment of enhancement, spinal canal involvement, or bone involvement, the rim of the abnormality appears to be of higher attenuation than the center and therefore the lesion most likely represents liquefied hematoma or abscess. Neurosurgeon recommended continuing bed bug exterminator suppressive antibiotics. Subjective: We called and talked to the caregiver for the patient. According to her Tana has been doing better. No complaints. She has required laxatives for constipation. No diarrhea has been tolerating Bactrim. Was scheduled a phone visit with the surgeon that was canceled. Was waiting to reschedule. Pertinent Medications: Bactrim Vital signs: Televisit not performed Labs: Reviewed Microbiology: 07/03/2022 blood culture positive for E. coli 07/28/2022 blood culture positive for Pseudomonas oryzihabitans 08/27/2022 superficial wound culture positive for Staphylococcus hemolyticus and Staphylococcus capitis 02/11/2023 Intraoperative cultures no growth Imaging: Reviewed ROS: 14 point ROS (-) except as above No exam performed since it was a telephone visit Assessment/Plan: Patient is a 27-year-old female with history of spastic quadriplegia, cerebral palsy and scoliosis status post multiple surgical intervention and bilateral Girdlestone in 2010 who was admitted in June 2022 with E. coli and Pseudomonas bacteremia of unclear origin with paraspinal co llections s/p IR drain placement that was treated with IV antibiotics inpatient and oral floroquinolones in August 2022. Since then she was on bactrim based on superficial skin cultures. Patient underwent R pelvic srew revision and washout with complex plastics closure on 02/11. Post operative cultures were negative. She completed 6 weeks of vancomycin and pip/tazo on 03/25. CRP is down to 2.9 and wound appears well healed. Post operative CRP trended upwards. CT Lumbar spine showedleft paraspinous fluid collection. Post operative per surgeon. She was continued on bactrim and tolerated therapy well. Patient has been on antibiotics since June 2022. We had E. coli and Pseudomonas bacteremia in June 2022 that was adequately treated with a prolonged course of levofloxacin and superficial cultures were positive for Staphylococcus hemolyticus and capitis treated with Bactrim. Her operative cultures from January 2023 were negative. At this time we feel 6 months of antibiotics postoperatively with a trial off antibiotics to see if there is any recurrence of infection. In absence of cultures and long-term suppression with Bactrim would not be a feasible option since it is associated with significant toxicities including hyperkalemia and elevated creatinine. We will wait for Tana to be assess by her surgeons and then reassess her at the end of July( 6 months of suppression) and decide at the time about stopping bactrim. Patient has CMP performed yesterday will await for fax result. We wanted to check creatinine and LFTs for safety while she is on Bactrim Recommendations: Continue Bactrim 1 tablet p.o. twice daily Follow-up with neurosurgery Follow-up with ID clinic in 2 months George Tipton MD Infectious Diseases Fellow- [id number] Pager: [phone] 07/01/2023 5:26 PM Plan discussed with Dr. Nikolay Toledo This note was created using [email or web address]) voice recognition software. * Nikolay Toledo MD - 07/02/2023 11:00 AM EST ID Attending Attestation I have seen and examined the patient and reviewed the fellow's above history, and I agree with the details as written. The assessment and plan were formulated in discussion with me and I agree with them as documented, with the following additions/modifications: It is not clear to me that we have demonstrated over infection of these fluid collections surrounding lumbar spinal hardware, and thus, I am not in favor of continuing bed bug exterminator suppressive antibiotics. We discussed a tentative stopping point of ~6 months following her most recent revision surgery,though we will check labs to monitor for antimicrobial toxicity, which may tip this risk/benefit equation. Importantly, an elevated CRP in and of itself is not diagnostic of ongoing or recurrent infection, as this is a very non-specific test. I shared with Tana's caregivers that we would like to have one last in-person visit with her priorto officially stopping her antibiotics. Nikolay Toledo MD Staff Physician in Infectious Diseases documented in this encounter Miscellaneous Notes * Addendum Note - Nikolay Toledo MD - 07/02/2023 11:00 AM ESTAddended by: NIKOLAY TOLEDO on: 07/02/2023 04:47 PM Modules accepted: Level of Service documented in this encounter Plan of Treatment Upcoming Encounters Date Type Department Care Team (Late st Contact Info) Description 11/19/2023 2:30 PM EDT TH Visit (TeleHealth) [place] [address] Lilli Joy APRN [facility] [place] [address] 11/30/2023 12:50 PM EDT Appointment [place] [address] 12/03/2023 12:30 PM EDT Office Visit [place] [address] Nikolay Toledo MD [facility] [place] [address] documented as of this encounter Visit Diagnoses Diagnosis 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 Acute osteomyelitis, other specified site [facility] 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 Encounter for long-term (current) use of antibiotics documented in this encounter Care Teams Dining Room Maid Relationship Specialty Start Date End Date Lorna Bal APRN [address] [place] [address] PCP - General Family Medicine 05/27/18 documented as of this encounter
--- OUTSIDE RECORDS SUMMARY | 2023-11-09 18:11 | XMS_ITS | Encounter Summary ---
Author Organization [facility] [place] [address] Care Team Providers Care Ramp Manager Name Role Phone Lorna Bal APRN Primary Care Provider [phone] Encounter Details Date Type Department Care Team (Latest Contact Info) Description 08/24/2023 9:00 AM EDT TH Visit (TeleHealth) [place] [id number] Samantha Crystal APRN [facility] [place] [address] Constipation, unspecified constipation type Social History Tobacco Use Types Packs/Day Years Used Date Smoking Tobacco: Never Smokeless Tobacco: Never Comments:NO SMOKERS IN THE H OME Alcohol Use Standard Drinks/Week Comments No 0 (1 standard drink = 0.6 oz pur e alcohol) [facility] Inpatient Questions Answer Date Recorded Does Anyone [...] as of this encounter Progress Notes * Samantha Crystal, TRANSPORTATION PLANNING ENGINEER - 08/24/2023 9:00 AM EDT Gastroenterology Follow Up Telehealth Note Ms. Tana Cavazos is a 28 y.o. female who presents to the section of Gastroenterology for follow upfor constipation. Interval Update: -Here today with Fernanda her director of neighborhood service center. -Since her colonoscopy her bowels have been really good. -There was a period after the colonoscopy where she did not need the suppository. -Current routine: Miralax AM and PM. Metamucil AM and PM. Senna nightly. -She gets a suppository every 3rd day if she has not gone. -Found they can get her to drink more with syringes- did it for colonoscopy and it helped. HISTORY OF PRESENT ILLNESS from 06/08/2023: This is a pleasant 28 y.o. female with a PMH significant for history of spastic quadriplegia, cerebral palsy and scoliosis status post multiple surgical intervention and bilateral [place] in 2010. Currently is nonverbal and she presents today with her in-home caregivers Fannie and Fernanda. Her constipation has been a chronic problem for years. Her bowel routine consists of MiraLAX, senna and Metamucil. If she does not have a bowel movement within 3 days then they used a suppository. Her current bowel routine involves 1 capful of MiraLAX twice daily, 1 teaspoon of Metamucil twice daily and senna twice daily. She had also previously tried milk of magnesia in the past with no response. She is currently moving her bowels every 3 days on average. She denies any bloody or black stools. She had a CT scan that showed some inflammation in the past and was sent here to schedule colonoscopy. If she does not move her bowels and her caregivers report that she will moan and appear to have some more generalized some stomach discomfort. She is being followed in [place] after hospital stay for a spinal infection. The plan is for her to remain on antibiotics lifelong. She had a surgery in January 2023 where they removed the screw and cleaned out the hardware in her lower surgical site. She also had some implanted antibiotics at that time. Following that period of time she was on IV antibiotics with a PICC line for a period of time but she is recently converted to oral antibiotics. Presently her stools are soft for the most part-not described as loose or diarrhea but not a ton offormed to them. She had stool testing that returned normal. They deny any significant straining to move her bowels. But with her surgical history do worry about the muscles and if they are rosalba appropriately. Her in home caregivers report that it is a struggle to get her to drink water throughout the day. And sometimes it is hard to get her to eat. Tana's current legal guardian is her mom Melissa, but paperwork has been filed with the court for Fannie to become her legal guardian. Weight: Had dropped when she was sick and regained. Appetite: Low. Dietary recall B: Oatmeal and yogurt or scrambled eggs and sausage. Or waffle. Applesauce or yogurt for pills. L: Snack items. Does not really like eating lunch. Feel abx might upset her stomach D: Wide variety: salads, meat, carb and vegetable. Green beans, rice and chicken. Daily Behaviors: Soda/Coffee:Sometimes coffee. 1-2 times a week. Drinks sprite occasionally Flavored water or crystal light and Guadalupe sun. Ensure shakes. Herbal supplements: Iron gummy and cranberry gummy. NSAIDs: Avoids NSAIDs ETOH: None Smoking: None Drugs: None. Therapies Tried: Miralax (on average 1 capful BID)- helps metamucil (1 tsp BID)- helps senna (daily 8.6 BID)- helps MOM in the past- no response Social: Occupation: Has caretakers. Relationship Status: Lives with caregivers. Rent a house. Has two caretakers with Tana and her roommate. Antibiotics: significant in the year. For spinal abscess. Had E. Coli lastt year. Imaging/Studies: 08/05/2023: Colonoscopy Impression: - The examined portion of the ileum was normal. - The entire examined colon is normal. Mild melanosis throughout. Biopsied in rectum/sigmoid. Surgical Pathology DIAGNOSIS A - Rectum r/o microscopic colitis, biopsy (Multiple): - Colonic mucosa within normal limits. 03/27/2023: US RUQ IMPRESSION 1. Liver is normal in size and echogenicity without focal lesion. 2. Calcified gallstone at the gallbladder neck. Normal wall thickness. No pericholecystic fluid. 3. No intra or extrahepatic biliary dilatation. 4. No ascites. 07/05/2022: CT AP W IMPRESSION 1. Stable and smaller subcutaneous and para midline soft tissue collections extending from the skin to the edge of the lumbar spine and hardware. 2. Proctitis. 3. Cannot distinguish left lower lobe collapse from pneumonia. 4. Nonobstructing left nephrolithiasis. 5. Thick-walled bladder. Cystitis is not excluded. Previous Labs: Lab Results Component Value Date WBC 6.0 03/26/2023 HGB 8.9 (L) 03/26/2023 HCT 27.5 (L) 03/26/2023 MCV 89.6 03/26/2023 PLATELET 355 03/26/2023 Chemistry Component Value Date/Time NA 137 04/16/2023 1620 K 3.8 04/16/2023 1620 CL 99 04/16/2023 1620 CO2 27 04/16/2023 1620 BUN 10 04/16/2023 1620 CREATININE 0.49 (L) 04/16/2023 1620 Component Value Date/Time CALCIUM 9.4 04/16/2023 1620 ALKPHOS 320 (H) 04/16/2023 1620 AST 15 04/16/2023 1620 ALT 40 (H) 04/16/2023 1620 BILITOT <0.2 (L) 04/16/2023 1620 Lab Results Component Value Date IRON 52 07/08/2022 TIBC 217 (L) 07/08/2022 FERRITIN 204 (H) 07/08/2022 Lab Results Component Value Date TSH 1.45 07/02/2022 Lab Results Component Value Date GLUCFASTING 95 07/01/2022 CREATININE 0.49 (L) 04/16/2023 CRP Date/Time Value Ref Range Status 04/16/2023 04:20 PM 47.2 (H) <=4.9 mg/L Final Amylase Date/Time Value Ref Range Status 05/22/2014 12:45 PM 89 28 - 100 unit/L Final Lipase Date/Time Value Ref Range Status 07/28/2022 11:27 PM 29 0 - 60 unit/L Final REVIEW OF SYSTEMS Notable for the gastrointestinal symptoms as described above. There has been no anorexia, fever, orunintended weight change; no red or painful eyes; no oral ulcers, chronic oral lesions, or chronic sore throat. There is no cough, shortness of breath, palpitations, or chest pain. There is no dysuria, urinary incontinence. No chronic joint pains or history of inflammatory arthritis. There is no recent skin rash. The patient denies psychiatric problems. There are no neurologic symptoms or easy bruising or bleeding. 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 M46.20 Abscess L02.91 Skin ulcer of back L98.429 PAST SURGICAL HISTORY: Past Surgical History: Procedure Laterality Date BACK SURGERY scoliosis repair HIP OSTEOTOMY bilateral IR ALL DRAINAGE PROCEDURES 06/25/2022 IR All Drainage Procedures 06/25/2022 Mich Martino MD [facility] INTERVENTIONL RAD IR ALL DRAINAGE PROCEDURES 07/04/2022 IR All Drainage Procedures 07/04/2022 Mich Martino MD [facility] INTERVENTIONL RAD IR ALL DRAINAGE PROCEDURES 07/24/2022 IR All Drainage Procedures 07/24/2022 Anurag Kumar MD [facility] INTERVENTIONL RAD IR ALL DRAINAGE PROCEDURES 09/26/2022 IR All Drainage Procedures 09/26/2022 Jamaal Jenkins, DO [facility] INTERVENTIONL RAD IR DRAIN CHECK/CHANGE/REMOVE 07/01/2022 IR Drain Check/Change/Remove 07/01/2022 Jamaal Jenkins, DO [facility] INTERVENTIONL RAD IR DRAIN CHECK/CHANGE/REMOVE 08/11/2022 IR Drain Check/Change/Remove 08/11/2022 Piter Self MD [facility] INTERVENTIONL RAD IR DRAIN CHECK/CHANGE/REMOVE 08/25/2022 IR Drain Check/Change/Remove 08/25/2022 Jamaal Jenkins, DO [facility] INTERVENTIONL RAD IR DRAIN CHECK/CHANGE/REMOVE 09/10/2022 IR Drain Check/Change/Remove 09/10/2022 Mich Martino MD [facility] INTERVENTIONL RAD PRO APPLY OF HIP CASTS, TWO LEGS 08/15/2010 CAST APPLICATION, HIP SPICA, BOTH LEGS performed by BARRERA OLIVER at [facility] MAIN OR PRO COLONOSCOPY, BIOPSY N/A 08/05/2023 COLONOSCOPY FLEXIBLE, WITH BX (WRVU 3.56) performed by Jamar Gastelum MD at [facility] ENDOSCOPY PRO I&D, POST SPINE, LUMB/SACR/LUMBOSAC N/A 05/20/2014 @I & D, OPEN, DEEP ABSCESS, LUMBAR, SACRAL, LUMBOSACRAL performed by Freddy Isbell MD at [facility] MAIN OR PRO I&D, POST SPINE, LUMB/SACR/LUMBOSAC N/A 05/26/2014 @I & D, OPEN, DEEP ABSCESS, LUMBAR, SACRAL, LUMBOSACRAL performed by Freddy Isbell MD at [facility] MAIN OR PRO IMPACT TOOTH REMOV COMP BONY N/A 06/14/2018 SURGICAL EXTRACTIONS, REMOVAL OF IMPACTED TOOTH, COMPLETELY BONY (WRVU 1.93) performed by Keith Cotton MD at [facility] OSC PRO OSTEOTOMY FEMUR SHAFT/SUPRACONDY 08/15/2010 ??OSTEOTOMY, FEMUR SHAFT OR SUPRACONDYLAR W/O FIXATION performed by BARRERA OLIVER at [facility] OR PRO RECONSTRUC HIP SOCKET, RESEC FEM HEAD 08/15/2010 ??ACETABULOPLASTY (GIRDLESTONE), RESECTION FEMORAL HEAD, BILATERAL performed by BARRERA OLIVER [facility] MAIN OR PRO REMOVAL DEEP IMPLANT 08/15/2010 REMOVAL IMPLANT, DEEP, BRUNO performed by BARRERA OLIVER at [facility] MAIN OR PRO REMOVAL ERUPTED TOOTH WITH ELEVATION OF MUCOPERIOSTEAL FLAP N/A 06/14/2018 SURGICAL EXTRACTIONS REQUIRING ELEVATION OF MUCOPERIOSTEAL FLAP AND REMOVAL OF BONE OR SECTION OF TOOTH (WRVU 1.09) performed by Keith Cotton MD at [facility] OSC PRO REMOVE INFUSN DEVICE/PUMP N/A 05/11/2014 REMOVAL OF SPINE INFUSION PUMP performed by Jamaal Samuel MD at [facility] MAIN OR PRO REMOVE SPINAL CANAL CATHETER N/A 05/11/2014 REMOVAL OF INTRATHECAL OR EPIDURAL CATHETER performed by Jamaal Samuel MD at [facility] MAIN OR PRO REPR, DURAL/CSF LEAK, NOT REQ LAMINECTOMY N/A 05/20/2014 @REPAIR DURAL\CSF LEAK,NOT REQUIRING LAMINECTOMY performed by Freddy Isbell MD at [facility] MAIN OR MEDICATIONS: Current Outpatient Medications Medication Sig Dispense Refill sulfamethoxazole-trimethoprim (Bactrim) 400-80 mg tablet Take 1 tablet by mouth 2 times daily. 60 tablet 0 ergocalciferoL, vitamin D2, (vitamin [...] mg tablet Take 10 mg by mouth 2 times daily. multivitamin (THERAGRAN) Tablet Take 1 tablet by mouth daily. No current facility-administered medications for this visit. ALLERGIES/ADR Allergies Allergen Reactions Fluoxetine Other (See Comments) HIVES, HEART RACES Tegaderm [Transparent Dressings] Itching and Dermatitis Please use [id number] Cyclobenzaprine Other Reaction(s): Not available Doxycycline Other (See Comments) Cough, rash Penicillins SOCIAL HISTORY: Social History Social History Narrative Not on file Social History Tobacco Use Smoking status: Never Smokeless tobacco: Never Tobacco comments: NO SMOKERS IN THE HOME Substance Use Topics Alcohol use: No FAMILY HISTORY: family history includes Cancer in her maternal grandmother; Heart Disease in her maternal grandfather. There is no family history of inflammatory bowel disease, celiac disease, or colorectal cancer. There is no history of liver disease. PHYSICAL EXAMINATION: No data found. Wt Readings from Last 3 Encounters: 08/05/23 56.2 kg (124 lb) 03/26/23 56.2 kg (124 lb) 09/26/22 49.4 kg (108 lb 12.8 oz) There is no height or weight on file to calculate BMI. No physical exam was completed as this visit was done via Telehealth ADDITIONAL TESTING: Reviewed available labs, imaging and endoscopy results in EDH/CIS as well as Scan Docs tab. IMPRESSION: Ms. Tana Cavazos is a 28 y.o. female who presents for follow up on chronic constipation. #Anemia She had some evidence of anemia on prior test so I would like to update some more recent labs. Theyare requesting these to go to [facility] ([facility] I will need to request these results as they believe she had them drawn. #Constipation We updated a colonoscopy after her last visit for anemia and CT evidence of proctitis. Her colonoscopy and rectal biopsies were normal. From a treatment standpoint her current constipation plan seemsto be working fair. She does require bisacodyl suppositories as rescue agent every 3 days if she has not moved her bowels. This improved after the colonoscopy. We did discuss prescription grade medications like Linzess, but we will hold on those treatments as her current routine is working well. They would like to follow up PRN. Will request labs and if normal then follow up PRN. Total time spent on encounter today: Time spent reviewing records prior to this encounter: 5 minutes Time spent during encounter with patient including counselin minutes Time spent documenting encounter after office visit: 5 minutes Samantha Crystal, TOMEKA, TRANSPORTATION PLANNING ENGINEER, BILINGUAL [employer] TE[employer]ER-C Section of Gastroenterology [place] [address] documented in this encounter Plan of Treatment Upcoming Encounters Date Type Department Care Team (Late st Contact Info) Description 11/19/2023 2:30 PM EDT TH Visit (TeleHealth) [place] [address] Lilli Joy APRN [facility] [place] [address] 11/30/2023 12:50 PM EDT [place] [address] 12/03/2023 12:30 PM EDT Office [place] [address] [facility] [place] [address] documented as of this encounter Visit Diagnoses Diagnosis Constipation, unspecified constipation type documented in this encounter Care Teams Ramp Manager Relationship Specialty Start Date End Date Lorna Bal APRN [address] [place] [address] PCP - General Family Medicine 05/27/18 documented as of this encounter
--- OUTSIDE RECORDS SUMMARY | 2023-11-09 18:11 | XMS_ITS | Encounter Summary ---
Author Organization [facility] [place] [address] Care Team Providers Care Human Resources Office Assistant Name Role Phone Lorna Bal APRN Primary Care Provider [phone] Reason for Referral * Diagnostic Test (Routine) - Authorized Specialty Diagnoses / Procedures Referred By Contac t Referred To Contact Radiology Diagnoses 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 Procedures CT Lumbar Spine w Contrast Hollie Ambriz MD [facility] [place] [address] [facility] [place] [address] Referral ID Status Reason Start Date Expiration Date Visits Requested Visits Authorized [id number] Authorized Specialty Service Requested 10/27/2023 04/28/2025 1 1 Encounter Details Date Type Department Care Team (Late st Contact Info) Description 10/27/2023 Telephone [place] [address] Hollie Ambriz MD [facility] [place] [address] Social History Tobacco Use Types Packs/Day Years Used Date Smoking Tobacco: Never Passive Smoke Exposure: Never Smokeless Tobacco: Never Comments:NO SMOKERS IN THE H OME Alcohol Use Standard Drinks/Week Comments No 0 (1 standard drink = 0.6 oz pur e alcohol) [facility] Inpatient Questions Answer Date Recorded [...] encounter Miscellaneous Notes * Telephone Encounter - Hollie Ambriz MD - 10/27/2023 12:19 PM EDT ID Telephone Call Spoke with Fannie about the fact that the patient's back has been increasingly warm and erythematousfor the past week and that she has been having low-grade fevers, though also in the setting of having come down with what sounds like a viral infection. Set shared plan of obtaining labs locally at [facility] and ideally coordinating a CT L-spine at [facility] [place] [place], followed by potential IR aspiration if a collection has reaccumulated. Ideally this would all be done before antibiotics are restarted in order to increase yield of cultures. Hollie Ambriz MD Staff Physician in Infectious Diseases documented in this encounter Plan of Treatment Upcoming Encounters Date Type Department Care Team (Late st Contact Info) Description 11/19/2023 2:30 PM EDT TH Visit (TeleHealth) [place] [phone] Lilli Joy APRN [facility] [place] [address] 11/30/2023 12:50 PM EDT [place] [phone] 12/03/2023 12:30 PM EDT Office [place] [address] Hollie Ambriz MD [facility] [place] [address] Scheduled Orders Name Type Priority Associated Diagnoses Orde r Schedule CT Lumbar Spine w Contrast Imaging Routine 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 Expected: 10/27/2023, Expires: 04/27/2024 CBC (with Diff) Lab Routine 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 Expected: 10/27/2023 (Approximate), Expires: 04/27/2024 Comprehensive metabolic panel (non-fasting) Lab Routine 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 Expected: 10/27/2023 (Approximate), Expires: 04/27/2024 CRP, acute inflammation Lab Routine 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 Expected: 10/27/2023, Expires: 04/27/2024 documented as of this encounter Visit Diagnoses Diagnosis 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- Primary Acute osteomyelitis, other specified site documented in this encounter Care Teams Human Resources Office Assistant Relationship Specialty Start Date End Date Lorna Bal, [place] [address] [place] [address] PCP - General Family Medicine 05/27/18 documented as of this encounter
--- OUTSIDE RECORDS SUMMARY | 2023-11-09 18:11 | XMS_ITS | Encounter Summary ---
Author Organization [facility] Address [facility] [place] [address] Care Team Providers Care Coconut Candy Maker Name Role Phone Lorna Bal APRN Primary Care Provider [phone] Encounter Details Date Type Department Care Team (Late st Contact Info) Description 09/24/2023 10:00 AM EDT Office Visit [place] [phone] Ronn Tipton MD [facility] [place] [address] 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; shelter 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 Social History Tobacco Use Types Packs/Day Years Used Date Smoking Tobacco: Never Smokeless Tobacco: Never Comments:NO SMOKERS IN THE H OME Alcohol Use Standard Drinks/Week Comments No 0 (1 standard drink = 0.6 oz pur e alcohol) [facility] Inpatient Questions Answer Date Recorded [...] Sign Reading Time Taken Comments Blood Pressure 122/90 09/24/2023 10:02 AM EDT Pulse 88 09/24/2023 10:02 AM EDT Temperature 36.1 ??C (96.9 ??F) 09/24/2023 10:02 AM E DT Respiratory Rate 16 09/24/2023 10:02 AM EDT Oxygen Saturation 99% 09/24/2023 10:02 AM EDT Inhaled Oxygen Concentration - - Weight - - Height 157.5 cm (5' 2.01) 09/24/2023 10:02 AM E DT Body Mass Index - - documented in this encounter Progress Notes * Ronn Tipton MD - 09/24/2023 10:00 AM EDT INFECTIOUS DISEASE CLINIC - OUTPATIENT FOLLOW-UP NOTE History of Present Illness: Tana Cavazos is a 27 y.o. female with history of traumatic brain injury with spastic quadriplegia,cerebral palsy and complex spinal history including scoliosis, bilateral Girdlestone in 2010 she was initially admitted in May 2022 for redness and tenderness over midline surgical scar and failed outpatient antibiotics.CT scan showed 2 irregular collections within the [...] abscess and bacteremia. Patient was readmitted on 07/22/22 with increased redness and purulent drainage from the same area. Repeat imaging showed multiple paraspinal and spinal collections. Initially levofloxacin was started. patient underwent IR drainage on 07/24/22. After deliberation it was decided to continue levofloxacin with weekly monitoring and use surgery as a last resort. Blood cultures were positive for Pseudomonas oryzihabitan. Levofloxacin was extended for 6 more weeks. After completing therapy she was switched to doxycycline to cover corynebacterium and strep species. On 08/27 Superficial cultures at OSH were positive for Staphylococcus hemolyticus and S. Capitis. She was evaluated in ID clinic on 09/10, Doxycyline was continued and she was switched to Bactrim on 09/25. She has remained on bactrim. Followed up with in [place]. MRI was not possible sec. To hardware. CRP/ESR was trending upwards. NSG referred her to [facility] for surgery. The patient went to the [...] liquefied hematoma or abscess. Neurosurgeon recommended continuing snf suppressive antibiotics Subjective: Tana is in pleasant mood and playful. Caregivers accompanying her in clinic. Patient is doing better. The wound on her back closed 2 months ago. She was evaluated by GI and hada normal colonoscopy in July 2023. She had a telemetry health visit with her surgeon and he explained to the caregivers that imaging is showing the antibiotic beads that he had placed and he is not concerned about an abscess. Pertinent Medications: Bactrim Vital signs: Televisit not performed Labs: Reviewed Microbiology: 07/03/2022 blood culture positive for E. coli 07/28/2022 blood culture positive for Pseudomonas oryzihabitans 08/27/2022 superficial wound culture positive for Staphylococcus hemolyticus and Staphylococcus capitis 02/11/2023 Intraoperative cultures no growth Imaging: Reviewed ROS: 14 point ROS (-) except as above Physical Exam Vitals and nursing note reviewed. Constitutional: General: She is not in acute distress. Comments: Playful, does not follow commands HENT: Right Ear: External ear normal. Left Ear: External ear normal. Nose: Nose normal. Pulmonary: Effort: Pulmonary effort is normal. Musculoskeletal: Comments: Midline lumbar surgical wound is well healed. Assessment/Plan: Patient is a 27-year-old female with history of spastic quadriplegia, cerebral palsy and scoliosis status post multiple surgical intervention and bilateral Girdlestone in 2010 who was admitted in June 2022 with E. coli and Pseudomonas bacteremia of unclear origin with paraspinal collections s/p IRdrain placement that was treated with IV antibiotics inpatient and oral floroquinolones in August 2022. Since then she was on bactrim based on superficial skin cultures. She underwent R pelvic srew revision and washout with complex plastics closure on 02/11. Post operative cultures were negative. She completed 6 weeks of vancomycin and pip/tazo on 03/25/23. She has been on Bactrim since February 2023 and has tolerated therapy well. At this time we feel she has been treated with antibiotics for almost 8 months. Surgical wound has closed and she has remained afebrile and stable. She was recently evaluated by her surgical team andthey were not concerned about any recurrence of infection. At this time we feel Bactrim can be stopped and we will observe the patient off antibiotics. Check CRP today to document a new baseline. We discussed the plan with patient's caregiver and they were in agreement but wanted us to be available to answer their questions in future if they need to contact us. We reassured them that she still is clinic patient and if they have any questions they are welcome to reach out to us. Recommendations: Discontinue Bactrim Check CMP and CRP today Follow-up with ID on as-needed basis Ronn Tipton MD Infectious Diseases Fellow- [id number] Pager: [phone] 09/23/2023 11:03 AM Plan discussed with Dr. Hollie Ambriz This note was created using [employer] voice recognition software. * Hollie Ambriz MD - 09/24/2023 10:00 AM EDT ID Attending Attestation I have seen and examined the patient and reviewed the fellow's above history, and I agree with the details as written. The assessment and plan were formulated in discussion with me and I agree with them as documented, with the following additions/modifications: Given the equipoise as to whether the fluid collections surrounding the lumbar spinal hardware wereinfected to begin with, as well as the lack of feasibility/concern for toxicity with lifelong antimicrobial suppression for a young woman in her late 20's-early 30's, after a shared decision making process involving her caregivers, we had previously set a plan of treating for 6 months following this patient's most recent surgery and then watching closely off of antibiotics. We are now at this 6 month aleisha. After another discussion with this patient's caregivers today, we have opted to stop antibiotics and monitor closely for recurrence of infection. We discussed what this could look like. After today's visit, we did obtain labs prior to discontinuation, which showed that her CRP still remains in the ~40's range. I am not sure what to make of this, as CRP elevation can be nonspecific as previously discussed, and she is doing clinically very well right now. Having said that, I am in agreement with the patient's neurosurgeon's recommendation of repeating labs a fewweek after stopping antibiotics to understand the trend over time. I have asked Dr. Tipton to coordinate with this patient's caregivers to have labs obtained closer to home. Hollie Ambriz MD Staff Physician in Infectious Diseases documented in this encounter Miscellaneous Notes * Addendum Note - Ronn Titpon MD - 09/24/2023 10:00 AM EDTAddended by: RONN TIPTON on: 09/28/2023 09:51 AM Modules accepted: Orders documented in this encounter Plan of Treatment Upcoming Encounters Date Type Department Care Team (Late st Contact Info) Description 11/19/2023 2:30 PM EDT TH Visit (TeleHealth) Infectious Disease at [facility] [place] [address] Lilli Joy APRN [facility] [place] [address] 11/30/2023 12:50 PM EDT [place] [address] 12/03/2023 12:30 PM EDT Office [place] [address] Hollie Ambriz MD [facility] [place] [address] documented as of this encounter Procedures Procedure Name Priority Date/Time Associated Diagnosis Comments HC VENIPUNCTURE Routine 09/24/2023 11:03 AM EDT 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 COMPREHENSIVE METABOLIC PANEL (NON-FASTING) Routine 09/24/2023 11:03 AM EDT 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 documented in this encounter Results * (ABNORMAL) Comprehensive metabolic panel (non-fasting) (09/24/2023 11:03 AM EDT) Glucose Lvl 98 65 - 199 mg/dL [facility] Comment:Diabetes: >=200 mg/d L plus symptoms BUN 16 8 - 18 mg/dL [facility] Creatinine 0.27(L) 0.70 - 1.20 mg/dL [facility] Sodium 138 135 - 145 mmol/L [facility] Potassium 3.7 3.5 - 5.0 mmol/L [facility] Comment: Please note: ??Patients with WBC >100,000 may have falsely elevated Potassium levels. ??For accurate Potassium quantification in these patients send serum separator tube (gold top) for subsequent determinations. ??Contact the Clinical Chemistry Laboratory if there are any questions. Chloride 100 98 - 107 mmol/L [facility] CO2 23 22 - 31 mmol/L [facility] Anion Gap 15 5 - 15 mmol/L [facility] Calcium 10.3 8.5 - 10.5 mg/dL [facility] Total Protein 8.4(H) 6.1 - 8.0 g/dL [facility] Albumin 4.6 3.2 - 5.2 g/dL [facility] AST 23 0 - 30 unit/L [facility] ALT 49(H) 0 - 30 unit/L [facility] Alk Phos 302(H) 35 - 105 unit/L [facility] Total Bilirubin 0.3 0.2 - 1.3 mg/dL [facility] Estimated GFR 150 >=60 mL/min/1. 73 m?? [facility] Comment: This patient's estimated GFR was [...] and symptoms in addition to eGFR. Blood 09/24/2023 11:0 3 AM EDT 09/24/2023 11:10 AM EDT Narrative Resulting Agency Comment Spec In Lab Ronn Tipton MD CHEMISTRY ORDERABLES Performing Organization Address City/[facility]/[place] [address] * (ABNORMAL) CRP, acute inflammation (09/24/2023 11:03 AM EDT) CRP 42.3(H) <=4.9 mg/L [facility] Blood 09/24/2023 11:0 3 AM EDT 09/24/2023 11:10 AM EDT Narrative Resulting Agency Comment Spec In Lab Ronn Tipton MD [place] [address] documented in this encounter Visit Diagnoses Diagnosis 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 Acute osteomyelitis, other specified site shelter 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 Encounter for long-term (current) use of antibiotics documented in this encounter Care Teams Coconut Candy Maker Relationship Specialty Start Date End Date Lorna Bal APRN [address] [place] [address] PCP - General Family Medicine 05/27/18 documented as of this encounter
--- OUTSIDE RECORDS SUMMARY | 2023-11-09 18:11 | XMS_ITS | Encounter Summary ---
Author Organization [facility] [place] [address] Care Team Providers Care Global Consumer Sector Vice President Name Role Phone Lorna Bal APRN Primary Care Provider [phone] Encounter Details Date Type Department Care Team (Late st Contact Info) Description 06/16/2023 Telephone [place] [phone] Martha Kennedy Social History Tobacco Use Types Packs/Day Years Used Date Smoking Tobacco: Never Smokeless Tobacco: Never Comments:NO SMOKERS IN THE H OME Alcohol Use Standard Drinks/Week Comments No 0 (1 standard drink = 0.6 oz pur e alcohol) [facility] Inpatient Questions Answer Date Recorded Does [...] encounter Miscellaneous Notes * Telephone Encounter - Martha Kennedy - 06/16/2023 12:02 PM EST Patient mother called as she was giving authorization for the patient to have a procedure ordered by Yuriy. patients home provider will call to schedule the procedure. documented in this encounter Plan of Treatment Upcoming Encounters Date Type Department Care Team (Late st Contact Info) Description 11/19/2023 2:30 PM EDT TH Visit (TeleHealth) [place] [address] Lilli Joy APRN [facility] [place] [address] 11/30/2023 12:50 PM EDT [place] [address] 12/03/2023 12:30 PM EDT Office [place] [address] Hollie Ambriz MD [facility] [place] [address] documented as of this encounter Visit Diagnoses Not on filedocumented in this encounter Care Teams Global Consumer Sector Vice President Relationship Specialty Start Date End Date Lorna Bal APRN [address] [place] [address] PCP - General Family Medicine 05/27/18 documented as of this encounter
--- OUTSIDE RECORDS SUMMARY | 2023-11-09 18:11 | XMS_ITS | Encounter Summary ---
[place] [address] Care Team Providers Care Offal Trimmer Name Role Phone Lorna Bal APRN Primary Care Provider [phone] Reason for Referral * Occupational Therapy (Routine) - Closed Specialty Diagnoses / Procedures Referred By Contmonica t Referred To Contact Occupational Therapy Diagnoses Chronic pain of right thumb Lucho Foster MD [facility] [place] [address] [facility] [place] [address] Referral ID Status Reason Start Date Expiration Date V isits Requested Visits Authorized [id number] Closed Consult Only 09/29/2023 09/28/2024 30 30 * Physical Therapy (Routine) - Authorized Specialty Diagnoses / Procedures Referred By Contac t Referred To Contact Physical Therapy Diagnoses Chronic pain of right thumb Lucho Foster MD [facility] [place] [address] Referral ID Status Reason Start Date Expiration Date Visits Requested Visits Authorized [id number] Authorized Evaluate and Treat 09/29/2023 03/27/2024 12 12 Reason for Visit * Reason Comments Establish Care CONTRACTURE OF R VIKAS MB NO KNOWN INJURY Hx OF RELEASE DOS: ([facility]) CRISTELA * Consultation (Routine) - Authorized Specialty Diagnoses / Procedures Referred By Contac t Referred To Contact Orthopaedics Diagnoses Contracture of joint of hand, 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 Lorna Bal APRN [address] [place] [address] [facility] [address] [place] [phone] Referral ID Status Reason Start Date Expiration Date Visits Requested Visits Authorized [id number] Authorized Consult, Test & Treat PCP Updated and/or Approved 08/03/2023 08/02/2024 6 6 Encounter Details Date Type Department Care Team (Latest Contact Info) Description 09/29/2023 10:30 AM EDT Office [place] [address] Chuckie Mayfield MD [facility] [place] [address] Chronic pain of right thumb; 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 Social History Tobacco Use Types Packs/Day Years Used Date Smoking Tobacco: Never Passive Smoke Exposure: Never Smokeless Tobacco: Never Tobacco Cessation:Counseling Given: Not Answered Comments:NO SMOKERS IN THE HOME Alcohol Use Standard Drinks/Week Comments No 0 (1 standard drink = 0.6 oz pur e alcohol) [facility] Inpatient Questions Answer Date Recorded [...] Sign Reading Time Taken Comments Blood Pressure - - Pulse - - Temperature - - Respiratory Rate - - Oxygen Saturation - - Inhaled Oxygen Concentration - - Weight 54.4 kg (120 lb) 09/29/2023 10:2 3 AM EDT patient reported Height 157.5 cm (5' 2) 09/29/2023 10:2 3 AM EDT Body Mass Index 21.95 09/29/2023 10:23 AM EDT documented in this encounter Progress Notes * Lucho Foster MD - 09/29/2023 10:30 AM EDT Images from the original note were not included. ORTHOPAEDIC SURGERY CLINIC NEW PATIENT EVALUATION DATE OF VISIT: 09/29/23 Chief complaint: Chief Complaint Patient presents with Establish Care CONTRACTURE OF R THUMB NO KNOWN INJURY Hx OF RELEASE DOS: ([facility]) CRISTELA Date of injury: N/A History of present illness: Tana Cavazos is a 28 y.o. year-old female with CP and associated spastic quadriplegia GMFCS V, history of right elbow and wrist contracture releases, who is seen today for evaluation of right thumb and shoulder spasticity. She presents with Fannie and Mariano, who participate in her care. They report worsening flexion contracture of the thumb and adduction contracture of the shoulder, which have progressed over the past several years. They feel her thumb causes pain whenparticularly spastic, and the adducted shoulder makes hygiene difficult. They report stretching of the hand and upper extremity twice per day. She has a splint for her right hand/thumb that is primarily worn at night (Tana removes the splint during the day). Living situation: dual housing with two part time flexible clerk caregivers. Fannie is Guardian. Thumb in palm they state is periodic spasticity and contractures, sometimes relaxes. Right shoulderdoes often make hygiene difficult due to position. Hand/thumb is not affecting hygiene. 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 Right leg pain 11/09/2014 Presence of intrathecal baclofen pump 02/28/2014 Spasticity 07/20/2013 Scoliosis 11/07/2010 Edema leg 11/04/2010 Acquired dysplasia of hip, bilateral 08/16/2010 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 04/27/1995 Medications: sulfamethoxazole-trimethoprim (Bactrim) 400-80 mg tablet ergocalciferoL, vitamin D2, (vitamin D2) 50,000 unit capsule Psyllium Husk-Sucrose 3.4 gram/7 gram Powder lactobacillus rhamnosus, GG, (CULTURELLE) 10 billion cell Capsule polyethylene glycoL (Miralax) 17 gram oral powder packet senna (Senokot) 8.6 mg tablet nystatin (MYCOSTATIN) 100,000 unit/gram Powder multivitamin (THERAGRAN) Tablet baclofen (Lioresal) 10 mg tablet Allergies: Allergies Allergen Reactions Fluoxetine Other (See Comments) HIVES, HEART RACES Tegaderm [Transparent Dressings] Itching and Dermatitis Please use [id number] Cyclobenzaprine Other Reaction(s): Not available Doxycycline Other (See Comments) Cough, rash Penicillins Social history: Social History Tobacco Use Smoking status: Never Passive exposure: Never Smokeless tobacco: Never Tobacco comments: NO SMOKERS IN THE HOME Substance Use Topics Alcohol use: No Occupation: disabled Questionnaire Responses: 03/18/2019 [facility] Surgical Postop Visit PROMIS-10 General Health Very Good PROMIS-10 Quality of Life Very Good PROMIS-10 Physical Health Very Good PROMIS-10 Mental Health Very Good PROMIS-10 Social Activity Very Good PROMIS-10 Everyday Activities A little PROMIS-10 Pain 4 PROMIS-10 Fatigue Moderate PROMIS-10 Social Roles Good PROMIS-10 Anxious or Depressed Rarely PROMIS PHYSICAL HEALTH SCORE 39.8 PROMIS MENTAL HEALTH SCORE 53.3 Satisfaction with Treatment Somewhat satisfied Choose Same Treatment Again Completely uncertain No data to display No data to display Vital signs: Temp: -- Heart Rate: -- BP: -- Body mass index is 21.95 kg/m??. Physical Exam: No acute distress Affect within normal limits for age Alert and oriented Speech clear and intact, appropriate for age Head atraumatic Respirations unlabored Brisk capillary refill peripheral bilateral upper extremities, warm and well perfused RUE: Shoulder w/ 5' passive external rotation, 70' passive abduction Elbow w/ 30' -140' passive ROM Wrist w/ 70' extension 60' flexion (passive) Fingers 2-5 w/ full passive extension and flexion Thumb w/ moderate 1st webspace tightness Near full supination, pronation (passive) Imaging: N/A Assessment/Plan: 28 y.o. year-old female with CP and associated spastic quadriplegia GMFCS V, history of right elbow and wrist contracture releases, presenting for evaluation of right thumb and shoulder spasticity. On exam, she demonstrates reasonable passive ROM when spasticity is overcome. We discussed management options, including continued stretching + splinting, splint immobilization, spasticity control, or surgery in the form of releases vs thumb fusion. We discussed that her current level of passive motion is above the threshold for which surgery would be recommended. She does not have contractures, and the UE is nonfunctional at baseline. Surgery would involve isolated soft tissue releases vs fusion at a neutral position if Tana fails conservative management. In the interim, recommended medical management with PCP vs neurologist for spasticity control and consideration of botox administration. Plan for f/u in [address] Mayfield for repeat evaluation. Plan: Thumb spica custom splint w/ OT, to be worn at night and when tolerated during the day PT referral for shoulder ROM, abduction external rotation Medical management w/ PCP and/or neurology for spasticity control in the setting of periodic spasticity episodes, to see if any more room on spasticity medications for right upper extremity relaxation. At the moment her overall tone control does appear good on examination. If she continues to have Tightness despite these nonoperative measures, especially of the shoulder for hygiene, we may consider operative intervention in the future. Patient to call sooner with any questions or concerns. This plan was discussed with the patient and they are in agreement. All of the patient's questions were answered, and they were satisfied with the discussion. Follow up: When: 6 months Thu/Thu for OT Xray: No Type: In person The above dictation was made with voice recognition software. Chuckie Mayfield MD, MPH Department of Orthopaedic Surgery Pediatric Orthopaedic & Hand Surgeon documented in this encounter Plan of Treatment Upcoming Encounters Date Type Department Care Team (Late st Contact Info) Description 11/19/2023 2:30 PM EDT TH Visit (TeleHealth) [place] [address] Lilli Joy APRN [facility] [place] [address] 11/30/2023 12:50 PM EDT [place] [phone] 12/03/2023 12:30 PM EDT Office [place] [address] Hollie Ambriz MD [facility] [place] [address] Scheduled Referrals Name Type Priority Associated Diagnoses Order Schedule Referral to Physical Therapy Outpatient Referral Routine Chronic pain of right thumb Ordered: 09/29/2023 Referral to Occupational Therapy Outpatient Referral Routine Chronic pain of right thumb Ordered: 09/29/2023 documented as of this encounter Visit Diagnoses Diagnosis Chronic pain of right thumb 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
--- OUTSIDE RECORDS SUMMARY | 2023-11-09 18:11 | XMS_ITS | Encounter Summary ---
Author Organization [facility] Address [facility] [place] [address] Care Team Providers Care Inspector Balance Bridge Name Role Phone Lorna Bal APRN Primary Care Provider [phone] Encounter Details Date Type Department Care Team (Latest Contact Info) Description 08/05/2023 9:03 AM EDT - 08/05/2023 11:39 AM EDT Hospital [place] [address] Jamar Gastelum MD [facility] DR GASTROENTER[place] [address] Discharge Disposition: Home Social History Tobacco Use Types Packs/Day Years Used Date Smoking Tobacco: Never Smokeless Tobacco: Never Comments:NO SMOKERS IN THE H OME Alcohol Use Standard Drinks/Week Comments No 0 (1 standard drink = 0.6 oz pur e alcohol) [facility] Inpatient Questions Answer Date Recorded [...] Sign Reading Time Taken Comments Blood Pressure 119/81 08/05/2023 11:25 AM EDT Pulse 69 08/05/2023 9:31 AM EDT Temperature 35.7 ??C (96.3 ??F) 08/05/2023 9:31 AM ED T Respiratory Rate 16 08/05/2023 11:25 AM EDT Oxygen Saturation 99% 08/05/2023 11:25 AM EDT Inhaled Oxygen Concentration - - Weight 56.2 kg (124 lb) 08/05/2023 9:31 AM EDT Height 157.5 cm (5' 2) 08/05/2023 9:31 AM EDT Body Mass Index 22.68 08/05/2023 9:31 AM EDT documented in this encounter Discharge Instructions * Discharge Instructions* Laura Pedro RN - 08/05/2023 11:01 AM EDT Colonoscopy: What to Expect at Home Your Recovery Your doctor will talk to you about when you will need your next colonoscopy. Your doctor can help you decide how often you need to be checked. This will depend on the results of your test and your risk for colorectal cancer. After the test, you may be bloated or have gas pains. You may need to pass gas. If a biopsy was done or a polyp was removed, you may have streaks of blood in your stool (feces) for a few days. Problems such as heavy rectal bleeding may not occur until several weeks after the test. This isn't common. But it can happen after polyps are removed. This care sheet gives you a general idea about how long it will take for you to recover. But each person recovers at a different pace. Follow the steps below to get better as quickly as possible. How can you care for yourself at home? Activity Rest when you feel tired. You can do your normal activities when it feels okay to do so. Diet Follow your doctor's directions for eating. Unless your doctor has told you not to, drink plenty of fluids. This helps to replace the fluids that were lost during the colon prep. Do not drink alcohol. Medicines Your doctor will tell you if and when you can restart your medicines. He or she will also give you instructions about taking any new medicines. If you take blood thinners, such as warfarin (Coumadin), clopidogrel (Plavix), or aspirin, be sure to talk to your doctor. He or she will tell you if and when to start taking those medicines again. Make sure that you understand exactly what your doctor wants you to do. If polyps were removed or a biopsy was done during the test, your doctor may tell you not to take aspirin or other anti-inflammatory medicines for a few days. These include ibuprofen (Advil, Motrin) and naproxen (Aleve). Other instructions For your safety, do not drive or operate machinery until the medicine wears off and you can think clearly. Your doctor may tell you not to drive or operate machinery until the day after your test. Do not sign legal documents or make major decisions until the medicine wears off and you can think clearly. The anesthesia can make it hard for you to fully understand what you are agreeing to. Additional Information for Sedation Patients For patients who received sedation: You may have received medications before and/or during your procedure which effects your judgement and reaction time. Do not drive, operate machinery, drink alcoholic beverages or make important decisions for 24 hours. Be careful on stairs as you may be unsteady on your feet. You may eat a regular diet as tolerated. Do not smoke if you are alone. IV site: Slight redness or tenderness is normal, you can use a warm compress if you would like. If tenderness and/or redness increase or if foul drainage occurs, please contact your Doctor. Please call [phone] before 8pm Mon-Fri with problems, questions or concerns. If you call after 8pm or on weekends, call the Hospital at [phone] and ask to speak to the Hi Teacher refrigeration person and the overlay operator will contact that person for you. When should you call for help? Call 461 anytime you think you may need emergency care. For example, call if: You passed out (lost consciousness). You pass maroon or bloody stools. You have trouble breathing. Call your doctor now or seek immediate medical care if: You have pain that does not get better after you take pain medicine. You are sick to your stomach or cannot drink fluids. You have new or worse belly pain. You have blood in your stools. You have a fever. You cannot pass stools or gas. Watch closely for changes in your health, and be sure to contact your doctor if you have any problems. Where can you learn more? [facility] View your After Visit Summary and more online at [email or web address] If you would like to provide feedback about your hospital experience, please call the Office of Patient and Family Relations at . If you have received this After Visit Summary in error, please immediately return it in person to the department, or notify the [facility] Privacy Office by calling toll free at between the hours of 8AM and 5PM to arrange for our retrieval of the documents at no cost to you. Content Version: 12.2 ?? 3925-8688 [employer]. Care instructions adapted under license by [facility]. If you have questions about a medical condition or this instruction, always ask your healthcare professional. [employer] disclaims any warranty or liability for your use of this information. * Patient Instructions* Jamar Gastelum MD - 08/05/2023 10:58 AM EDT Please see Recommendations in the Provation procedure report which is documented in the procedural note in E-DH. documented in this encounter Medications at Time of Discharge Medication Sig Dispensed Refills Start Date End Date ergocalciferoL, vitamin D2, (vitamin D2) 50,000 unit capsule Take 50,000 Units by mouth once a week. 01/15/2023 polyethylene glycoL (Miralax) 17 gram oral powder packet Take 17 g by mouth daily. 07/09/2022 senna (Senokot) 8.6 mg tablet Take 2 tablets by mouth nightly. baclofen (Lioresal) 10 mg tablet Take 10 mg by mouth 3 times daily. sulfamethoxazole-trimet hoprim (Bactrim) 400-80 mg tablet Take 1 tablet by mouth 2 times daily. 08/11/2023 nystatin (MYCOSTATIN) 100,000 unit/gram Powder Apply 1 each topically 2 times daily. 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 ASA 3 - Patient with moderate systemic disease with functional limitations Sedation Plan: anesthesia Risks and benefits of the procedure explained to the patient. Consent signed. documented in this encounter Miscellaneous Notes * Op Note - Jamar Gastelum MD - 08/05/2023 10:35 AM EDT [facility] Operative Note Patient Name: Tana Cavazos : [id number] MR#: [id number] Case Date: 08/05/2023 Surgeon: Surgeon(s) and Role: * Jamar Gastelum MD - Primary Preoperative diagnosis: Colonoscopy- Chronic constipation and anemia Postoperative diagnosis: Normal colonoscopy exam, biopsies taken in rectum Procedure(s) (LRB): COLONOSCOPY, DIAGNOSTIC (WRVU 3.26) (N/A) Anesthesia: MAC Full procedure note is documented under the Procedure section of eDH. Attestation: Case Date: 08/05/2023 I performed this procedure without the involvement of a resident. JAMAR GASTELUM MD 08/05/2023 documented in this encounter Plan of Treatment Upcoming Encounters Date Type Department Care Team (Late st Contact Info) Description 11/19/2023 2:30 PM EDT TH Visit (TeleHealth) [place] [address] Lilli Joy APRN [facility] [place] [address] 11/30/2023 12:50 PM [place] [address] 12/03/2023 12:30 PM EDT [place] [address] Hollie Ambriz MD [facility] [place] [address] documented as of this encounter Procedures Procedure Name Priority Date/Time Associated Diagnosis Comments SPECIMEN TO PATHOLOGY Routine 08/05/2023 11:01 AM EDT SURGICAL PATHOLOGY REPORT Routine 08/05/2023 11:00 AM EDT Colonoscopy, Biopsy ([id number]) 08/05/2023 10:27 AM EDT Constipation, unspecified constipation type COLONOSCOPY Routine 08/05/2023 9:59 AM EDT documented in this encounter Results * Specimen to Pathology (08/05/2023 11:01 AM EDT) AP Specimen 08/05/2023 11:0 1 AM EDT 08/05/2023 11:01 AM EDT [facility] - 08/05/2023 11:01 AM EDT Specimen requisition ordered. ??Separate Pathology report to follow Jamar Hair MD PATHOLOGY/CYTOLO GY ORDERABLES Performing Organization Address [facility] Co de Phone Number [facility] [place] [address] * Surgical Pathology Report (08/05/2023 11:00 AM EDT) Surgical Pathology Report [id number] ? Location: 4T; EA11; A The signing pathologist has (i) examined the relevant preparation(s) for the specimen(s) and (ii) rendered or confirmed the diagnosis(es). . ?Surgical Pathology DIAGNOSIS A - Rectum r/o microscopic colitis, biopsy (Multiple): - ??Colonic mucosa within normal limits. CR-PX Electronically signed by: ?Jazmyne GIRALDO PhD, Courtney Verified: ??08/17/2023 16:08 ??Pathologist Performed at: ??-[facility] Dept. of Pathology, [place] [address] Railroad Baggage Porter: Frank Turpin MD, FCAP, ??CLIA Certificate: [id number] SPECIMEN(S) SUBMITTED A - rectum r/o microscopic colitis, biopsy (Multiple) CLINICAL INFORMATION 28-year-old female with chronic constipation SPECIMEN PROCESSING A - Labeled/Fixative : Rectum rule out microscopic colitis, formalin. Quantity/Size: Multiple, averaging 0.3 cm. Tissue Description: Soft, red tissues. Sections/Process ing: Submitted in toto ??in 2 cassettes labeled A1-A2. ??sns [facility] 08/05/2023 11:0 0 AM EDT Jamar Hair MD PATHOLOGY/CYTOLO GY ORDERABLES Performing Organization Address City/[facility]/ZIP Co de Phone Number [facility] [place] [address] * COLONOSCOPY (08/05/2023 9:59 AM EDT) COLONOSCOPY [facility] Endoscopy ___ Procedure Date: 08/05/2023 9:59 AM ? Patient Name: Tana Cavazos ? Date of : 1995 ? Age: 28 ? Order #: [id number] ? Instrument Name: [id number] ? ___ Procedure: ? Colonoscopy Indications: ? Constipation Providers: ? Jamar Gastelum MD, Angelita ? Roel Howard Referring : ?Lorna Bal Medicines: ? See the Anesthesia note for ? documentation of the administered ? medications Complications: ? No immediate complications. ___ Procedure: ? Pre-Anesthesia Assessment: ? - Prior to the procedure, a History ? and Physical was performed, and ? patient medications, allergies and ? sensitivities were reviewed. The ? patient's tolerance of previous ? anesthesia was reviewed. ? - The risks and benefits of the ? procedure and the sedation options ? and risks were discussed with the ? patient. All questions were ? answered and informed consent was ? obtained. ? - Abdominal Examination: bowel ? sounds present, abdomen soft and ? non-tender, no masses or ? organomegaly noted. ? - CV Examination: normal. ? - Mental Status Examination: alert ? and oriented. ? - Respiratory Examination: clear to ? auscultation. ? - ASA Grade Assessment: III - A ? patient with severe systemic ? disease. ? - After reviewing the risks and ? benefits, the patient was deemed in ? satisfactory condition to undergo ? the procedure. ? - Monitored anesthesia care under ? the supervision of an ? anesthesiologist was determined to ? be medically necessary for this ? procedure based on severe ? comorbidity (greater than ASA Grade ? II). ? The procedure, indications, ? benefits, risks and alternatives ? were explained to the patient. ? Specifically discussed were ? potential complications including, ? but not limited to, bleeding, ? perforation, infection, missing a ? cancer, and adverse medication ? reactions. The patient was placed ? in the left lateral decubitus ? position, and a digital rectal exam ? was performed. The Colonoscope was ? inserted in the anus and under ? direct visualization, advanced to ? the terminal ileum. Careful ? inspection was made as the ? colonoscope was withdrawn. The ? patient tolerated the procedure ? well. The quality of the bowel ? preparation was excellent. The ? colonoscopy was performed without ? difficulty. ? Findings: ? The terminal ileum appeared normal. ? The entire examined colon appeared normal. Mild ? melanosis throughout. Biopsies for histology were ? taken with a cold forceps from the rectum/sigmoid for ? evaluation of microscopic colitis. ? Moderate Sedation: ? Not applicable - See Anesthesia documentation Impression: ?- The examined portion of the ileum ? was normal. ? - The entire examined colon is ? normal. Mild melanosis throughout. ? Biopsied in rectum/sigmoid.. Recommendation: ?- Await pathology results. ? - Return to referring physician ? after studies are complete. ? Attending Participation: ? I personally performed the entire procedure. ? Jamar Gastelum MD 08/05/2023 11:05:15 AM This report has been signed electronically. Number of Addenda: 0 Note Initiated On: 08/05/2023 9:59 AM PROVATION 08/05/2023 9:59 AM EDT Lorna Bal MR TEACHER GENERAL SURGICAL ORDERABLES PROVATION documented in this encounter Visit Diagnoses Not on filedocumented in this encounter Active and Recently Administered Medications Care Teams Inspector Balance Bridge Relationship Specialty Start Date End Date Lorna Bal APRN [address] [place] [address] PCP - General Family Medicine 05/27/18 documented as of this encounter
--- OUTSIDE RECORDS SUMMARY | 2023-11-09 18:11 | XMS_ITS | Encounter Summary ---
Author Organization [facility] [place] [address] Care Team Providers Care Import/Export Clerk Name Role Phone Lorna Bal APRN Primary Care Provider [phone] Encounter Details Date Type Department Care Team (Late st Contact Info) Description 10/27/2023 Telephone [place] [address] Halima García Social History Tobacco Use Types Packs/Day Years Used Date Smoking Tobacco: Never Passive Smoke Exposure: Never Smokeless Tobacco: Never Comments:NO SMOKERS IN THE H OME Alcohol Use Standard Drinks/Week Comments No 0 (1 standard drink = 0.6 oz pur e alcohol) [facility] Inpatient Questions Answer Date Recorded Does Anyone [...] encounter Miscellaneous Notes * Telephone Encounter - Halima García - 10/27/2023 10:23 AM EDT freelance displayer (josy) called stating the patient's infection has returned in her back. They are requesting an order for a aspiration to be put in. documented in this encounter Plan of Treatment Upcoming Encounters Date Type Department Care Team (Late st Contact Info) Description 11/19/2023 2:30 PM EDT TH Visit (TeleHealth) [place] [address] Lilli Joy [place] [place] [address] 11/30/2023 12:50 PM EDT [place] [address] 12/03/2023 12:30 PM EDT Office [place] [address] Hollie Ambriz MD [facility] [place] [address] documented as of this encounter Visit Diagnoses Not on filedocumented in this encounter Care Teams Import/Export Clerk Relationship Specialty Start Date End Date Lorna Bal APRN [address] [place] [address] PCP - General Family Medicine 05/27/18 documented as of this encounter
--- OUTSIDE RECORDS SUMMARY | 2023-11-09 18:11 | XMS_ITS | Encounter Summary ---
Author Organization [facility] Address [facility] [place] [address] Care Team Providers Care Housekeeper/Laundry Assistant Name Role Phone Lorna Bal APRN Primary Care Provider [phone] Encounter Details Date Type Department Care Team (Late st Contact Info) Description 10/28/2023 Telephone [place] [address] Neva Thorpe, RN Social History Tobacco Use Types Packs/Day Years Used Date Smoking Tobacco: Never Passive Smoke Exposure: Never Smokeless Tobacco: Never Comments:NO SMOKERS IN THE H OME Alcohol Use Standard Drinks/Week Comments No 0 (1 standard drink = 0.6 oz pur e alcohol) [facility] Utilities Answer Date Recorded In the past 12 months has e [place], gas, oil, or water [employer] threatened to shut off services in your [...] any time in the past 12 m [facility], were you homeless or living in a fdc (including now)? No 10/29/2023 DH IPV Inpatient [...] Encounter - Neva Thorpe RN - 10/28/2023 1:28 PM EDT This RN reached back ot to Fannie: Labs drawn at [facility] today-waiting for results Area still on her back. Bright red. Turns white when touched. Hot to the touch. Area is hard to thetouch. No drainage noted. Running a temperature of 99.9F consistently. Three days ago she 100.3F. Fannie states she is normally 96F. CT scan not scheduled yet. Fannie will call to schedule today. Tana is eating normally/acting WNL. Inquired about Fannie being the contact on the [facility] portal. 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 Plan: Fannie will call back once she has the lab results. Will call to schedule CT Scan. Fannie understands that the department is closed tomorrow for the holiday. This RN explained how to reach the provider hydrate control tender if necessary. Will review with Dr Hollie Ambriz 10/28/2023 1634 [facility] faxing labs over. Fannie states she is bringing Tana into the ER here at to be evaluated. Dr Ambriz updated documented in this encounter Plan of Treatment Upcoming Encounters Date Type Department Care Team (Late st Contact Info) Description 11/19/2023 2:30 PM EDT TH Visit (TeleHealth) [place] [address] Lilli Joy APRN [facility] [place] [address] 11/30/2023 12:50 PM EDT [place]ointment [place] [address] 12/03/2023 12:30 PM EDT Office [place] [address] Hollie Ambriz MD [facility] [place] [address] documented as of this encounter Visit Diagnoses Not on filedocumented in this encounter Care Teams Housekeeper/Laundry Assistant Relationship Specialty Start Date End Date Lorna Bal APRN [address] [place] [address] PCP - General Family Medicine 05/27/18 documented as of this encounter
--- OUTSIDE RECORDS SUMMARY | 2023-11-09 18:11 | XMS_ITS | Encounter Summary ---
Author Organization [facility] Address [facility] [place] [address] Care Team Providers Care Steelworker Name Role Phone Lorna Bal APRN Primary Care Provider [phone] Reason for Visit * Reason Comments Medication Refill Encounter Details Date Type Department Care Team (Late st Contact Info) Description 09/10/2023 Refill [place] [address] Hollie Ambriz MD [facility] [place] [address] Social History Tobacco Use Types Packs/Day Years Used Date Smoking Tobacco: Never Smokeless Tobacco: Never Comments:NO SMOKERS IN THE H OME Alcohol Use Standard Drinks/Week Comments No 0 (1 standard drink = 0.6 oz pur e alcohol) [facility] Inpatient Questions Answer Date Recorded Does Anyone [...] EDT TH Visit (TeleHealth) [place] [address] Lilli Joy APRN [facility] [place] [address] 11/30/2023 12:50 PM EDT Appointment [place] [address] 12/03/2023 12:30 PM EDT Office Visit [place] [address] Hollie Ambriz MD [facility] [place] [address] documented as of this encounter Visit Diagnoses Not on filedocumented in this encounter Care Teams Steelworker Relationship Specialty Start Date End Date Lorna Bal APRN [address] [place] [address] PCP - General Family Medicine 05/27/18 documented as of this encounter
--- OUTSIDE RECORDS SUMMARY | 2023-11-09 18:11 | XMS_ITS | Encounter Summary ---
Author Organization [facility] Address [facility] [place] [address] Care Team Providers Care Community Outreach Advocate Name Role Phone Lorna Bal APRN Primary Care Provider [phone] Encounter Details Date Type Department Care Team (Latest Contact Info) Description 09/29/2023 Travel Social History Tobacco Use Types Packs/Day Years Used Date Smoking Tobacco: Never Passive Smoke Exposure: Never Smokeless Tobacco: Never Comments:NO SMOKERS IN THE H OME Alcohol Use Standard Drinks/Week Comments No 0 (1 standard drink = 0.6 oz pur e alcohol) [facility] Inpatient Questions Answer Date Recorded [...] EDT TH Visit (TeleHealth) Infectious Disease at [facility] [place] [address] Lilli Joy [place]N [facility] [place] [address] 11/30/2023 12:50 PM EDT Appointment [place] [address] 12/03/2023 12:30 PM EDT Office Visit [place] [address] Hollie Ambriz MD [facility] [place] [address] documented as of this encounter Visit Diagnoses Not on filedocumented in this encounter Care Teams Community Outreach Advocate Relationship Specialty Start Date End Date Lorna Bal APRN [address] [place] [address] PCP - General Family Medicine 05/27/18 documented as of this encounter
--- OUTSIDE RECORDS SUMMARY | 2023-11-09 18:11 | XMS_ITS | Encounter Summary ---
Author Organization [facility] [place] [address] Care Team Providers Care Printer Helper Name Role Phone Lorna Bal APRN Primary Care Provider +1 [phone] Encounter Details Date Type Department Care Team (Late st Contact Info) Description 08/11/2023 Telephone [place] [address] Halima García Social History Tobacco Use Types Packs/Day Years Used Date Smoking Tobacco: Never Smokeless Tobacco: Never Comments:NO SMOKERS IN THE H OME Alcohol Use Standard Drinks/Week Comments No 0 (1 standard drink = 0.6 oz pur e alcohol) [facility] Inpatient Questions Answer Date Recorded Does [...] * Telephone Encounter - Halima García - 08/11/2023 2:44 PM EDTSummary: RX REFILL Pt needs a refill for sulfamethoxazole-trimethoprim (Bactrim) 400-80 mg tablet. Please send to: [facility]- - [place], [place] - [address] [facility] documented in this encounter Plan of Treatment Upcoming Encounters Date Type Department Care Team (Late st Contact Info) Description 11/19/2023 2:30 PM EDT TH Visit (TeleHealth) [place] [address] Lilli Joy [place] [id number] 11/30/2023 12:50 PM EDT [place] [address] 12/03/2023 12:30 PM EDT Office [place] [address] Hollie Ambriz MD [facility] [place] [address] documented as of this encounter Visit Diagnoses Not on filedocumented in this encounter Care Teams Printer Helper Relationship Specialty Start Date End Date Lorna Bal APRN [address] [place] [address] PCP - General Family Medicine 05/27/18 documented as of this encounter
--- OUTSIDE RECORDS SUMMARY | 2023-11-09 18:11 | XMS_ITS | Encounter Summary ---
Author Organization [facility] Address [facility] [place] [address] Care Team Providers Care Foam Rubber Mixer Name Role Phone Lorna Bal APRN Primary Care Provider +1 [phone] Encounter Details Date Type Department Care Team (Latest Contact Info) Description 10/28/2023 Travel Social History Tobacco Use Types Packs/Day Years Used Date Smoking Tobacco: Never Passive Smoke Exposure: Never Smokeless Tobacco: Never Comments:NO SMOKERS IN THE H OME Alcohol Use Standard Drinks/Week Comments No 0 (1 standard drink = 0.6 oz pur e alcohol) [facility] Utilities Answer Date Recorded In the past 12 months has e [employer], gas, oil, or water [employer] threatened to shut off services in your [...] any time in the past [facility] or living in a f[facility] (including now)? No 10/29/2023 IPV Inpatient Questions [...] EDT TH Visit (TeleHealth) [place] [address] Lilli Joy [place]N [facility] [place] [address] 11/30/2023 12:50 PM ED[place] [address] 12/03/2023 12:30 PM EDT Office [place] [address] Hollie Ambriz MD [facility] [place] [address] documented as of this encounter Visit Diagnoses Not on filedocumented in this encounter Care Teams Foam Rubber Mixer Relationship Specialty Start Date End Date Lorna Bal APRN [address] [place] [address] PCP - General Family Medicine 05/27/18 documented as of this encounter
--- OUTSIDE RECORDS SUMMARY | 2023-11-09 18:11 | XMS_ITS | Encounter Summary ---
Author Organization [facility] [place] [address] Care Team Providers Care Fabric Worker Fitter Name Role Phone Lorna Bal APRN Primary Care Provider +1 [phone] Encounter Details Date Type Department Care Team (Late st Contact Info) Description 06/12/2023 Telephone [place] [address] Tobi Luna Social History Tobacco Use Types Packs/Day Years Used Date Smoking Tobacco: Never Smokeless Tobacco: Never Comments:NO SMOKERS IN THE H OME Alcohol Use Standard Drinks/Week Comments No 0 (1 standard drink = 0.6 oz pur e alcohol) [facility] Inpatient Questions Answer Date Recorded Does [...] encounter Miscellaneous Notes * Telephone Encounter - Tobi Luna - 06/12/2023 10:07 AM EST Home care provider called to schedule COLO There is mention of it in telehealth visit with Samantha Crystal, but no orders I sent an inbasket request for orders to be put in documented in this encounter Plan of Treatment Upcoming Encounters Date Type Department Care Team (Late st Contact Info) Description 11/19/2023 2:30 PM EDT TH Visit (TeleHealth) [place] [address] Lilli Joy APRN [facility] [place] [address] 11/30/2023 12:50 PM EDT [place] [address] 12/03/2023 12:30 PM EDT Office [place] [address] Hollie Ambriz MD [facility] [place] [address] documented as of this encounter Visit Diagnoses Not on filedocumented in this encounter Care Teams Fabric Worker Fitter Relationship Specialty Start Date End Date Lorna Bal APRN [address] [place] [address] PCP - General Family Medicine 05/27/18 documented as of this encounter
--- OUTSIDE RECORDS SUMMARY | 2023-11-09 18:11 | XMS_ITS | Encounter Summary ---
Author Organization [facility] Address [facility] [place] [address] Care Team Providers Care Facilities Director Name Role Phone Lorna Bal APRN Primary Care Provider +1 [phone] Encounter Details Date Type Department Care Team (Late st Contact Info) Description 08/05/2023 10:15 AM EDT - 08/05/2023 11:00 AM EDT Surgery [place] [address] Jamar Gastelum MD [facility] [place] [address] COLONOSCOPY FLEXIBLE, WITH BX (WRVU 3.56) Social History Tobacco Use Types Packs/Day Years Used Date Smoking Tobacco: Never Smokeless Tobacco: Never Comments:NO SMOKERS IN THE H OME Alcohol Use Standard Drinks/Week Comments No 0 (1 standard drink = 0.6 oz pur e alcohol) [facility] Inpatient Questions Answer Date Recorded Does Anyone [...] Sign Reading Time Taken Comments Blood Pressure 117/77 08/05/2023 9:31 AM EDT Pulse 69 08/05/2023 9:31 AM EDT Temperature 35.7 ??C (96.3 ??F) 08/05/2023 9:31 AM ED T Respiratory Rate - - Oxygen Saturation 98% 08/05/2023 9:31 AM EDT Inhaled Oxygen Concentration - - [...] occurs, please contact your Doctor. Please call [phone] before 8pm Mon-Fri with problems, questions or concerns. If you call after 8pm or on weekends, call the Hospital at [phone] and ask to speak to the Instructional Technology Instructor health and safety consultant and the electrolog operator will contact that person for you. When should you call for help? Call 137 anytime you think you may need emergency [...] any problems. Where can you learn more? [facility] View your After Visit Summary and more online at [email or web address] If you would like to provide feedback about your hospital experience, please call the Office of Patient and Family Relations at . If you have received this After Visit Summary in error, please immediately return it in person to the department, or notify the [facility] Privacy Office by calling toll free at between the hours of 8AM and 5PM to arrange for our retrieval of the documents at no cost to you. Content Version: 12.2 ?? [id number] [employer]. Care instructions adapted under license by [facility]. If you have questions about a medical condition or this instruction, always ask your healthcare professional. [employer] disclaims any warranty or liability for your [...] Gastelum MD - 08/05/2023 10:35 AM EDT [facility] [place] Operative Note Patient Name: Tana Cavazos : [id number] MR#: [id number] Case Date: 08/05/2023 Surgeon: Surgeon(s) and Role: [...] EDT TH Visit (TeleHealth) [place] [address] Lilli Joy APRN [facility] [place] [address] 11/30/2023 12:50 PM EDT Appointment [place] [address] 12/03/2023 12:30 PM EDT Office Visit [place] [address] Hollie Ambriz MD [facility] [place] [address] documented as of this encounter Procedures Procedure Name Priority Date/Time Associated Diagnosis Comments SPECIMEN TO PATHOLOGY Routine 08/05/2023 11:01 AM EDT SURGICAL PATHOLOGY REPORT Routine 08/05/2023 11:00 AM EDT Colonoscopy, Biopsy ([id number]) 08/05/2023 10:27 AM EDT Constipation, unspecified constipation type COLONOSCOPY Routine 08/05/2023 9:59 AM EDT documented in this encounter Results * Specimen to Pathology (08/05/2023 11:01 AM EDT) AP Specimen 08/05/2023 11:0 1 AM EDT 08/05/2023 11:01 AM EDT [facility] - 08/05/2023 11:01 AM EDT Specimen requisition ordered. ??Separate Pathology report to follow Jamar Hair MD PATHOLOGY/CYTOLO GY ORDERABLES Performing Organization Address [facility] Co de Phone Number [facility] [place] [address] * Surgical Pathology Report (08/05/2023 11:00 AM EDT) Surgical Pathology Report [id number] ? Location: 4T; EA11; A The signing pathologist has (i) examined the relevant preparation(s) for the specimen(s) and (ii) rendered or confirmed the diagnosis(es). . ?Surgical Pathology DIAGNOSIS A - Rectum r/o microscopic colitis, biopsy (Multiple): - ??Colonic mucosa within normal limits. CR-PX Electronically signed by: ?Jazmyne GIRALDO PhD, Courtney Verified: ??08/17/2023 16:08 ??Pathologist Performed at: ??-[facility] [place] Dept. of Pathology, [place] [address] Wax Blender: Frank Turpin MD, FCAP, ??CLIA Certificate: [id number] SPECIMEN(S) SUBMITTED A - rectum r/o microscopic colitis, biopsy (Multiple) CLINICAL INFORMATION 28-year-old female with chronic constipation SPECIMEN PROCESSING A - Labeled/Fixative : Rectum rule out microscopic colitis, formalin. Quantity/Size: Multiple, averaging 0.3 cm. Tissue Description: Soft, red tissues. Sections/Process ing: Submitted in toto ??in 2 cassettes labeled A1-A2. ??sns [facility] 08/05/2023 11:0 0 AM EDT Jamar Hair MD PATHOLOGY/CYTOLO GY ORDERABLES Performing Organization Address [facility]/State/ZIP Co de Phone Number [facility] [place] [address] * COLONOSCOPY (08/05/2023 9:59 AM EDT) COLONOSCOPY [facility] Endoscopy ___ Procedure Date: 08/05/2023 9:59 AM ? Patient Name: Tana Cavazos ? Date of : 1995 ? Age: 28 ? Order #: [id number] ? Instrument Name: [id number] ? ___ Procedure: ? Colonoscopy Indications: ? Constipation Providers: ? Jamar Gastelum MD, Angelita ? Roel Howard MD: ?Lorna Bal Medicines: ? See the Anesthesia [...] PROVATION 08/05/2023 9:59 AM EDT Lorna Bal CONTROL ROOM AGENT GENERAL SURGICAL ORDERABLES [employer] documented in this encounter Visit Diagnoses Diagnosis Constipation, unspecified constipation type documented in this encounter Active and Recently Administered Medications Care Teams Facilities Director Relationship Specialty Start Date End Date Lorna Bal APRN [address] [place] [address] PCP - General Family Medicine 05/27/18 documented as of this encounter
--- OUTSIDE RECORDS SUMMARY | 2023-11-09 18:11 | XMS_ITS | Encounter Summary ---
Author Organization [facility] [place] [address] Care Team Providers Care Fire Alarm Repairer Name Role Phone Lorna Bal APRN Primary Care Provider +1 -[phone] Encounter Details Date Type Department Care Team (Late st Contact Info) Description 06/17/2023 Telephone [place] [address] Tobi Luna Social History Tobacco Use Types [...] * Telephone Encounter - Tobi Luna - 06/17/2023 10:02 AM EST Tana Cavazos [id number] Diagnosis/Indication: Chronic constipation and anemia Please review patient chart to confirm if previous Endoscopy procedure was performed within system. If yes, take note of Anesthesia type used. If previous procedure found, and with MAC/propofol Anesthesia support was used, schedule this procedure with Anesthesia and skip the Anesthesia portion of questions. If not performed within system, not performed at all, or performed with IVCS, ask Anesthesia questions. SCHEDULING QUESTIONS (ask all patient these questions) Have you ever had a/an Colonoscopy before? No If yes, did you have any problems with the procedure (such as waking up during the procedure, pain or difficulties afterwards, etc.)? No What type of sedation was used: None Do you take any blood thinners or have you been diagnosed with a bleeding disorder that increases your risk of bleeding with procedures? No Do you have a Pacemaker or Defibrillator device? If yes, send pool message to Cardiology with patient information and date or procedure. No Are you a diabetic? If yes, call PCP/managing provider to discuss use of prep and any questions or concerns related to. No Do you take any iron supplements or vitamins that contain iron? Yes Do you have a preference regarding the gender of your provider? Yes female ANESTHESIA QUESTIONS (YES to any question, please book with Anesthesia support) Have you ever been diagnosed with Pulmonary Hypertension and/or Congential Heart Disease? No Have you been diagnosed with A-Fib (atrial fibrillation) that is NOT being well controled with medications? No Have you ever had an allergic or adverse reaction to Fentanyl or Versed? No Have you had a problem with sedation or anesthesia? (Waking up during procedure, extreme confusion after, etc.) Yes nausea Do you have a diagnosis of Obstructive Sleep Apnea that requires the use of a c- pap machine? No Do you use an oxygen tank at home? No Do you use a rescue inhaler more than twice per day? (COPD, severe asthma) No Do you experience breathing problems when you lay flat for a period of time? No Do you take prescription narcotic pain medications, including suboxone or methodone? No SCHEDULING CONFIRMATIONS: Please note any and all parts of your conversation with the patient here. We offer all new patients an opportunity to have an appointment with one of our associate care providers to learn more about your upcoming procedure, ask questions and get answers. These appointmentsare offered via telehealth. Would you be interested in scheduling this appointment? (Only ask if NEW referral patient; skip this question if GI provider ordered the procedure.) No Is there any other information or concerns you would like to us to share with your care team in relation to your upcoming scheduled procedure? Yes: hip issues You must have a responsible alliance party who will drive you to your procedure, stay on campus for the entire duration of your procedure, and drive you home from your procedure. Who will likely be your driver license examiner for the procedure? *Please Verify the height and weight, and adjust if height and/or weight have changed* Estimated body mass index is 24.22 kg/m?? as calculated from the following: Height as of 03/26/23: 152.4 cm (5'). Weight as of 03/26/23: 56.2 kg (124 lb). Age:27 y.o. documented in this encounter Plan of Treatment Upcoming Encounters Date Type Department Care Team (Late st Contact Info) Description 11/19/2023 2:30 PM EDT TH Visit (TeleHealth) [place] [address] Lilli Joy APRN [facility] [place] [address] 11/30/2023 12:50 PM EDT [place]ointment [place] [address] 12/03/2023 12:30 PM EDT Office Visit [place] [address] Hollie Ambriz MD [facility] [place] [address] documented as of this encounter Visit Diagnoses Not on filedocumented in this encounter Care Teams Fire Alarm Repairer Relationship Specialty Start Date End Date Lorna Bal APRN [address] [place] [address] PCP - General Family Medicine 05/27/18 documented as of this encounter
--- OUTSIDE RECORDS SUMMARY | 2023-11-09 18:11 | XMS_ITS | Encounter Summary ---
Author Organization [facility] Address [facility] [place] [address] Care Team Providers Care Welding Operator Name Role Phone Lorna Bal APRN Primary Care Provider +1 -[phone] Encounter Details Date Type Department Care Team (Late st Contact Info) Description 10/28/2023 Telephone [place] [address] Neva Thorpe, RN Social History Tobacco Use Types Packs/Day Years Used Date Smoking Tobacco: Never Passive Smoke Exposure: Never Smokeless Tobacco: Never Comments:NO SMOKERS IN THE H OME Alcohol Use Standard Drinks/Week Comments No 0 (1 standard drink = 0.6 oz pur e alcohol) [facility] Utilities Answer Date Recorded In the past 12 months has e [employer], gas, oil, or water [employer] threatened to shut off services in your [...] any time in the past 12 m [facility], were you homeless or living in a mcfp (including now)? No 10/29/2023 IPV Inpatient Questions [...] Encounter - Neva Thorpe RN - 10/28/2023 4:33 PM EDT Opened in error documented in this encounter Plan of Treatment Upcoming Encounters Date Type Department Care Team (Late st Contact Info) Description 11/19/2023 2:30 PM EDT TH Visit (TeleHealth) [place] [address] Lilli Joy [place]N [facility] [place] [id number] 11/30/2023 12:50 PM EDT [place] [address] 12/03/2023 12:30 PM EDT Office [place] [address] Hollie Ambriz MD [facility] [place] [address] documented as of this encounter Visit Diagnoses Not on filedocumented in this encounter Care Teams Welding Operator Relationship Specialty Start Date End Date Lorna Bal APRN [address] [place] [address] PCP - General Family Medicine 05/27/18 documented as of this encounter
--- OUTSIDE RECORDS SUMMARY | 2023-11-09 18:11 | XMS_ITS | Encounter Summary ---
Author Organization [facility] Address [place] [address] Care Team Providers Care Director Of Retail Analytics Name Role Phone Lorna Bal APRN Primary Care Provider +1 -[phone] Encounter Details Date Type Department Care Team (Late st Contact Info) Description 10/28/2023 Telephone [place] [address] Neva Thorpe, RN Social History Tobacco Use Types Packs/Day Years Used Date Smoking Tobacco: Never Passive Smoke Exposure: Never Smokeless Tobacco: Never Comments:NO SMOKERS IN THE H OME Alcohol Use Standard Drinks/Week Comments No 0 (1 standard drink = 0.6 oz pur e alcohol) [facility] Utilities Answer Date Recorded In the past 12 months has e [employer], gas, oil, or water [employer] threatened to shut off services in your [...] any time in the past 12 m [facility], were you homeless or living in a usp (including now)? No 10/29/2023 IPV Inpatient Questions [...] Encounter - Neva Thorpe RN - 10/28/2023 10:35 AM EDT This RN reached out to Fannie, thomas, for an update on Tana. Also, checking in to see if labs were drawn and if CYT has been scheduled. Message left requesting a return call. documented in this encounter Plan of Treatment Upcoming Encounters Date Type Department Care Team (Late st Contact Info) Description 11/19/2023 2:30 PM EDT TH Visit (TeleHealth) [place] [address] Lilli Joy APRN [facility] [place] [address] 11/30/2023 12:50 PM EDT [place] [address] 12/03/2023 12:30 PM EDT Office [place] [address] Hollie Ambriz MD [facility] [place] [address] documented as of this encounter Visit Diagnoses Not on filedocumented in this encounter Care Teams Director Of Retail Analytics Relationship Specialty Start Date End Date Lorna Bal APRN [address] [place] [address] PCP - General Family Medicine 05/27/18 documented as of this encounter
--- OUTSIDE RECORDS SUMMARY | 2023-11-09 18:11 | XMS_ITS | Encounter Summary ---
Author Organization [facility] Address [facility] [place] [address] Care Team Providers Care Boiler Fitter Name Role Phone Lorna Bal APRN Primary Care Provider +1 [phone] Encounter Details Date Type Department Care Team (Late st Contact Info) Description 08/05/2023 10:24 AM EDT Anesthesia [place] [phone] Christopher Johansen MD [facility] [place] [address] Buster Brooke Anesthesia Record Procedure Summary Procedure Name Responsible Anesthesiologist Anesthesia Start Time Anesthesia Stop Time COLONOSCOPY FLEXIBLE, WITH BX (WRVU 3.56) (Trunk) Christopher Johansen MD 08/05/23 1024 08/05/23 1109 Events Date Time Event Comment 08/05/2023 0916 1024 AN Verify 1024 Start 1024 An Start Data 1030 An Induction 1034 Anesthesia Ready 1108 an stop data 1108 Recovery or ICU Handoff Nori ent care was transferred to the destination unit staff after review of the patient's medical history, current anesthetic/surgical status and plan, according to the Provider Handoff Checklist. 1109 Stop Meds Name Total Propofol 100 mg Propofol INF 137.69 mg lactated ringers 500 mL * Agents Name O2 Auxiliary Flowmeter 1 * Blood No blood administrations on file. Lines, Drains, and Airways Type Details Placement Removal Incision 06/25/22; 1627; uppe r; lumbar spine; non-laparascopic puncture; aspiration site; LDA not present upon assessment; 10/29/23 06/25/22 1627 by Gadiel Morris RN 10/29/23 0000 by Jaye Murry, EUNICE Incision 07/01/22; 1530; Left ; lumbar spine; non-laparascopic puncture; Drain removal site.; LDA not present upon assessment; 10/29/23 07/01/22 1530 by Veronica Thornton RN 10/29/23 0000 by Jaye Murry, EUNICE Incision 07/04/22; 1559; Righ t, lower; thoracic spine; non-laparascopic puncture; LDA not present upon assessment; 10/29/23 07/04/22 1559 by Ty Alonso RN 10/29/23 0000 by Jaye Murry, RN Incision 07/08/22; 1032; lowe r; thoracic spine; non-laparascopic puncture; LDA not present upon assessment; 10/29/23 07/08/22 1032 by Kiarra Morris RN 10/29/23 0000 by Jaye Murry, RN External Catheter 07/23/22; 0032; external catheter applied; 10/29/23; 1700 07/23/22 0032 by Alma Prescott RN 10/29/23 1700 by Shahbaz Barfield Jr., RN Incision 09/10/22; 1253; Righ t; gluteal; non-laparascopic puncture; LDA not present upon assessment; 10/29/23 09/10/22 1253 by Reji Qiu RN 10/29/23 0000 by Jaye Murry, RN (RETIRED) Peripheral IV Line - Single Lumen 09/26/22; 1042; metacarpal vein (top of hand), right; uakh-ptc-hblwxa catheter system; 22 gauge; distraction, intradermal injection, tolerated well; LDA not present upon assessment; 10/29/23; 0840 09/26/22 1042 by Ramiro Aden LPN 10/29/23 0840 by Hank Christian RN Incision 09/26/22; 1328; Righ t; gluteal; non-laparascopic puncture; Aspiration site (Gregory, DO); LDA not present upon assessment; 10/29/23 09/26/22 1328 by Nathalie Hernández RN 10/29/23 0000 by Jaye Murry RN PIV 08/05/23; 1015; ecun-yov-ypgcbc catheter system; 22 gauge; great saphenous vein (medial side of leg), left; Ultrasound Guidance; Tamara; 08/05/23; 1127 08/05/23 1015 by Buster Brooke 08/05/23 1127 by Laura Pedro RN documented in this encounter Social History Tobacco Use Types Packs/Day Years Used Date Smoking Tobacco: Never Smokeless Tobacco: Never Comments:NO SMOKERS IN THE H OME Alcohol Use Standard Drinks/Week Comments No 0 (1 standard drink = 0.6 oz pur e alcohol) DH IPV Inpatient Questions Answer Date Recorded [...] on file documented as of this encounter OR Notes * Anesthesia Postprocedure Evaluation - Christopher Johansen MD - 08/05/2023 12:46 PM EDT Department of Anesthesiology Post-procedure Note Patient: Tana Cavazos Procedure Summary Date: 08/05/23 Room / Location: [facility] ENDO 5 / [facility] ENDOSCOPY Anesthesia Start: 1024 Anesthesia Stop: 110 Procedure: COLONOSCOPY FLEXIBLE, WITH BX (WRVU 3.56) (Trunk) Diagnosis: Constipation, unspecified constipation type (Colonoscopy- Chronic constipation and anemia) Surgeons: Jamar Gastelum MD Responsible Provider: Christopher Johansen MD Anesthesia Type: MAC ASA Status: 3 All Anesthesia Providers: Anesthesiologist: Christopher Johansen MD Student Nurse Casino Investigator: Buster Brooke Vitals Value Taken Time BP 119/81 08/05/23 1125 Temp Pulse Resp 16 08/05/23 1125 SpO2 99 % 08/05/23 1127 Pain Level 0 08/05/23 1125 Vitals shown include unfiled device data. Patient Location: PACU/[facility] Level of Consciousness: Awake and Alert Pain Management: Satisfactory Analgesia PONV: None Cardiovascular Status: At Baseline and Hemodynamically Stable Respiratory Status: At Baseline and Room Air Postoperative Fluid Status: Intravascular EUvolemia Possible Anesthetic Complications: NONE apparent at time of evaluation Final Primary Anesthesia Type: MAC (The anesthetic type performed was the same as planned.) Comments: CHRISTOPHER JOHANSEN MD * Anesthesia Preprocedure Evaluation - Christopher Johansen MD - 08/05/2023 9:12 AM EDT Pre-Anesthesia Evaluation for: Tana Cavazos a 28 y.o. female. Procedure(s): [facility] Patient Active Problem List Diagnosis Date Noted ??? Skin ulcer of back 01/29/2023 ??? Abscess 07/22/2022 ??? 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 06/24/2022 ??? Fracture of femur, distal 07/31/2015 ??? 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 Right leg pain 11/09/2014 ??? Presence of intrathecal baclofen pump 02/28/2014 ??? Spasticity 07/20/2013 ??? Scoliosis 11/07/2010 ??? Edema leg 11/04/2010 ??? Acquired dysplasia of hip, bilateral 08/16/2010 ??? 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 Past Surgical History: Procedure Laterality Date ??? BACK SURGERY scoliosis repair ??? HIP OSTEOTOMY bilateral ??? IR ALL DRAINAGE PROCEDURES 06/25/2022 IR All Drainage Procedures 06/25/2022 Mich Martino MD [facility] DORAL RAD ??? IR ALL DRAINAGE PROCEDURES 07/04/2022 IR All Drainage Procedures 07/04/2022 Mich Martino MD [facility] INTERVENTIONL RAD ??? IR ALL DRAINAGE PROCEDURES 07/24/2022 IR All Drainage Procedures 07/24/2022 Anurag Kumar MD [facility] INTERVENTIONL RAD ??? IR ALL DRAINAGE PROCEDURES 09/26/2022 IR All Drainage Procedures 09/26/2022 Jamaal Jenkins, DO [facility] INTERVENTIONL RAD ??? IR DRAIN CHECK/CHANGE/REMOVE 07/01/2022 IR Drain Check/Change/Remove 07/01/2022 Jamaal Jenkins, DO [facility] INTERVENTIONL RAD ??? IR DRAIN CHECK/CHANGE/REMOVE 08/11/2022 IR Drain Check/Change/Remove 08/11/2022 Piter Self MD [facility] INTERVENTIONL RAD ??? IR DRAIN CHECK/CHANGE/REMOVE 08/25/2022 IR Drain Check/Change/Remove 08/25/2022 Jamaal Jenkins, DO [facility] INTERVENTIONL RAD ??? IR DRAIN CHECK/CHANGE/REMOVE 09/10/2022 IR Drain Check/Change/Remove 09/10/2022 Mich Martino MD [facility] INTERVENTIONL RAD ??? PRO APPLY OF HIP CASTS, TWO LEGS 08/15/2010 CAST APPLICATION, HIP SPICA, BOTH LEGS performed by BARRERA OLIVER at [facility] OR ? ? PRO I&D, POST SPINE, LUMB/SACR/LUMBOSAC N/A 05/20/2014 @I & D, OPEN, DEEP ABSCESS, LUMBAR, SACRAL, LUMBOSACRAL performed by Freddy Isbell MD at [facility] MAIN OR ? ? PRO I&D, POST SPINE, LUMB/SACR/LUMBOSAC N/A 05/26/2014 @I & D, OPEN, DEEP ABSCESS, LUMBAR, SACRAL, LUMBOSACRAL performed by Freddy Isbell MD at [facility] MAIN OR ??? PRO IMPACT TOOTH REMOV COMP BONY N/A 06/14/2018 SURGICAL EXTRACTIONS, REMOVAL OF IMPACTED TOOTH, COMPLETELY BONY (WRVU 1.93) performed by Keith Cotton MD at [facility] OSC ??? PRO OSTEOTOMY FEMUR SHAFT/SUPRACONDY 08/15/2010 ??OSTEOTOMY, FEMUR SHAFT OR SUPRACONDYLAR W/O FIXATION performed by BARRERA OLIVER at [facility] MAIN OR ??? PRO RECONSTRUC HIP SOCKET, RESEC FEM HEAD 08/15/2010 ??ACETABULOPLASTY (GIRDLESTONE), RESECTION FEMORAL HEAD, BILATERAL performed by BARRERA OLIVER [facility] MAIN OR ??? PRO REMOVAL DEEP IMPLANT 08/15/2010 REMOVAL IMPLANT, DEEP, BRUNO performed by BARRERA OLIVER at [facility] MAIN OR ??? PRO REMOVAL ERUPTED TOOTH WITH ELEVATION OF MUCOPERIOSTEAL FLAP N/A 06/14/2018 SURGICAL EXTRACTIONS REQUIRING ELEVATION OF MUCOPERIOSTEAL FLAP AND REMOVAL OF BONE OR SECTION OF TOOTH (WRVU 1.09) performed by Keith Cotton MD at [facility] OSC ??? PRO REMOVE INFUSN DEVICE/PUMP N/A 05/11/2014 REMOVAL OF SPINE INFUSION PUMP performed by Jamaal Samuel MD at [facility] MAIN OR ??? PRO REMOVE SPINAL CANAL CATHETER N/A 05/11/2014 REMOVAL OF INTRATHECAL OR EPIDURAL CATHETER performed by Jamaal Samuel MD at [facility] MAIN OR ??? PRO REPR, DURAL/CSF LEAK, NOT REQ LAMINECTOMY N/A 05/20/2014 @REPAIR DURAL\CSF LEAK,NOT REQUIRING LAMINECTOMY performed by Freddy Isbell MD at [facility] MAIN OR Social History Tobacco Use ??? Smoking status: Never ??? Smokeless tobacco: Never ??? Tobacco comments: NO SMOKERS IN THE HOME Substance Use Topics ??? Alcohol use: No Social History Substance and Sexual Activity Drug Use No Allergies Allergen Reactions ??? Fluoxetine Other (See Comments) HIVES, HEART RACES ??? Tegaderm [Transparent Dressings] Itching and Dermatitis Please use [id number] ??? Cyclobenzaprine Other Reaction(s): Not available ??? Penicillins Medications: MAR and/or home medications have been reviewed. Physical Exam: Preprocedure Vitals Current as of 08/05/23 0912 No BP, pulse, respiration, SpO2, or temperature recorded. Height: Weight: BMI: IBW: Airway Assessment: Mallampati: (Unable to Assess) Cardiovascular Assessment: system normal Pulmonary Assessment: (+) decreased breath sounds Dental Assessment: Misc Assessment: Patient is wearing No contact(s). IV access: Peripheral line Last Filed Perioperative Cognitive Screening None Anesthesia Plan: ASA 3 MAC, with a(n) intravenous induction 28 year old female with spastic quadriplegia after traumatic head injury age 1 with baclofen pump here for colonoscopy after constipation. This patient requires anesthesia to mitigate those risks. Tolerated multiple anesthetics in the past. Prior inhalational induction and Grade 1 view via ETT. Will attempt IV start in endoscopy prior to procedure. Medical chart reviewed thoroughly with particular attention paid to conditions that immediately impact perioperative care and planning, including, but not limited to, cardiac, respiratory, hematological, and vascular conditions. Risks/benefits discussed with patient including, but not limited to, de ntal/airway/lip injury, vascular injury, nerve injury, thrombosis, eye injury, awareness, CVA, cardiac arrest, , adverse drug reactions, among others. All questions answered to her satisfaction. PLAN: MAC w GA backup. Std monitors PIV Region - Other Informed Consent: Anesthetic plan and risks discussed with patient. Plan discussed with RADIO INTERFERENCE INVESTIGATOR. Anesthesia Screening documented in this encounter Plan of Treatment Upcoming Encounters Date Type Department Care Team (Late st Contact Info) Description 11/19/2023 2:30 PM EDT TH Visit (TeleHealth) [place] [phone] Lilli Joy APRN [facility] [place] [address] 11/30/2023 12:50 PM EDT [place] [phone] 12/03/2023 12:30 PM EDT Office [place] [phone] Hollie Ambriz MD [facility] [place] [address] documented as of this encounter Visit Diagnoses Not on filedocumented in this encounter Administered Medications Inactive Administered Medications - up to 3 most recent administrations Medication Order MAR Action Action Date Dose Rate Site lactated ringers infusion Intravenous, CONTINUOUS PRN, Starting on Thu08/05/23 at 1024, Until Thu08/05/23 at 1109, Anesthesia Intra-op New Bag 08/05/2023 10:24 AM EDT propofoL (Diprivan) (10 mg/mL) infusion Intravenous, CONTINUOUS PRN, Starting on Thu08/05/23 at 1032, Until Thu08/05/23 at 1109, Anesthesia Intra-op, Routine Rate/Dose Change 08/05/2023 10:35 AM EDT 125 mcg/kg/min 42.15 mL/hr New Bag 08/05/2023 10:32 AM EDT 150 mcg/kg/min 50.58 mL /hr propofoL (Diprivan) 10 mg/mL bolus injection (Anesthesia) Intravenous, PRN, Starting on Thu08/05/23 at 1032, Until Thu08/05/23 at 1109, Anesthesia Intra-op Given 08/05/2023 10:52 AM EDT 20 mg Given 08/05/2023 10:43 AM EDT 20 mg Given 08/05/2023 10:32 AM EDT 60 mg documented in this encounter Care Teams Boiler Fitter Relationship Specialty Start Date End Date Lorna Bal APRN [address] [place] [address] PCP - General Family Medicine 05/27/18 documented as of this encounter
--- OUTSIDE RECORDS SUMMARY | 2023-11-09 18:11 | XMS_ITS | Encounter Summary ---
[place] [address] Care Team Providers Care Chief Engineer Production Name Role Phone Lorna Bal APRN Primary Care Provider [phone] [phone] Reason for Visit * Occupational Therapy (Routine) - Closed Specialty Diagnoses / Procedures Referred By Karlo t Referred To Contact Occupational Therapy Diagnoses Chronic pain of right thumb Lucho Foster MD [facility] [place] [address] [facility] [place] [address] Referral ID Status Reason Start Date Expiration Date V isits Requested Visits Authorized [id number] Closed Consult Only 09/29/2023 09/28/2024 30 30 Encounter Details Date Type Department Care Team (Late st Contact Info) Description 09/29/2023 10:00 AM EDT Office [place] [address] Gaby Lake OT [facility] PHYSICAL MEDICINE & [place] [address] 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 Tran Velasco MD Follow-up: 6 months Total Treatment time: 45 Minutes Timed Code Treatment Time: 0 minutes OCCUPATIONAL PROFILE: Tana Cavazos is a 28 y.o. year old Right hand dominant person who is seen today with two of her caregivers for assessment of her bilateral hands affected by spasitic quadriplegia- the right hand has a thumb adduction tightness that has not been addressed with splinting or stretching . Tana Cavazos is referred to Occupational Therapy for fabrication of a custom orthosis. Patient presents today accompanied by patient and nursing attendantcaregivers. She is very good natured and cooperative with splinting today. Date of onset of symptoms: congenital Date of surgery: na Pertinent History and/or Co-morbidities: 1. 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 Spasticity Occupation: none Vocational status: na- lives in dependent living Avocational Activities: has her communication device that she interacts with. Able to follow verbalcommands well. Pain: (Assessed using the Visual Analog Pain Scale) At Rest: 0/10 With Activity: 0/10 Patient Specific Functional Scale (PSFS) (unable to perform 0/10 - Able to perform without difficulty 10/10) Activity At Evaluation 1.) light grasping 3/10 2.)pinch tasks 0/10 3.)self care 2/10 Treatment Today: Orthosis - Elbow Orthotic W/O Jts, Custom, Fit & Adj (L3702) Orthosis - Hand Finger Orthotic, W/O Jts, Custom, Fit & Adj (L3913) Educated patient in etiology and biomechanics as related to patient's symptoms Fabricated hand based C-bar thumb abduction orthosis Instructed in orthosis wear and care- recommend for night use Had caregivers take photos for donning/doffing on their phone today Review application and skin precautions to be aware of with use Instruct on gentle passive stretching for thumb radial and palmar abduction as well. HEP is reviewed and assigned as below CLINICAL DECISION MAKING: Tana Cavazos has a well fitting orthosis post therapy. Tana Cavazos is able to independently verbalize and demonstrate the recommended home program following instructions today. Tana Cavazos has fiar potential for gains with therapy/home program use. Patient knows to call with any questions or concerns. Plan for ongoing therapy is assisted living provided care. Short Term Goals (to be met by end of the visit today): Date Goal Met: Today 1. Tana Cavazos will demonstrate independence with donning and doffing of her orthosis and verbalization of purpose. Goal Status: Meets. Today 2. Tana Cavazos will be independent with home exercises as evident with demonstration in therapy. Goal Status: Meets Detention Goals (to be met by one year): Date Goal Met: 1. Tana Cavazos will prevent thumb adduction contracture that could interfere with self care in her hand Goal Status: In progress PLAN: Orthosis to provide support and protection to the joint (X) Tana Cavazos participated in the evaluation, collaborated on treatment goals, and agrees to the treatment plan. documented in this encounter Plan of Treatment Upcoming Encounters Date Type Department Care Team (Late st Contact Info) Description 11/19/2023 2:30 PM EDT TH Visit (TeleHealth) Infectious Disease at [facility] [place] [address] Lilli Joy, [place] [facility] [place] [address] 11/30/2023 12:50 PM EDT [place] [address] 12/03/2023 12:30 PM EDT Office [place] [phone] Hollie Ambriz MD [facility] [place] [address] Scheduled Referrals Name Type Priority Associated Diagnoses Order Schedule Referral to Occupational Therapy Outpatient Referral Routine Chronic pain of right thumb Ordered: 09/29/2023 documented as of this encounter Visit Diagnoses Diagnosis 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
--- OUTSIDE RECORDS SUMMARY | 2023-11-09 18:11 | XMS_ITS | Encounter Summary ---
Author Organization [facility] Address [facility] [place] [address] Care Team Providers Care Hammerer Tab Name Role Phone Lorna Bal APRN Primary Care Provider [phone] [phone] Reason for Visit * Reason Onset Date Comments Medication Refill 08/11/2023 Encounter Details Date Type Department Care Team (Late st Contact Info) Description 08/11/2023 Refill [place] [address] Hollie Ambriz MD [facility] [place] [address] Social History Tobacco Use Types Packs/Day Years [...] EDT TH Visit (TeleHealth) [place] [address] Lilli Joy APRN [facility] [place] [address] 11/30/2023 12:50 PM EDT [place] [address] 12/03/2023 12:30 PM EDT Office [place] [phone] Hollie Ambriz MD [facility] [address] INFECTIOUS DISEASE [place], [place] [phone] documented as of this encounter Visit Diagnoses Not on filedocumented in this encounter Care Teams Hammerer Tab Relationship Specialty Start Date End Date Lorna Bal APRN [address] [place] [address] PCP - General Family Medicine 05/27/18 documented as of this encounter
--- OUTSIDE RECORDS SUMMARY | 2023-11-09 18:11 | XMS_ITS | Encounter Summary ---
Author Organization [facility] Address [facility] Benjamin [facility] [address] Care Team Providers Care Clinical Research Technician Name Role Phone Lorna Bal APRN Primary Care Provider [phone] [phone] Encounter Details Date Type Department Care Team (Late st Contact Info) Description 09/28/2023 Orders Only [place] [address] Hollie Ambriz MD [facility] [place] [address] senior care 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; 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; Acute hematogenous osteomyelitis, unspecified site Social History Tobacco Use Types Packs/Day Years Used Date Smoking Tobacco: Never Smokeless Tobacco: Never Comments:NO SMOKERS IN THE H OME Alcohol Use Standard Drinks/Week Comments No 0 (1 standard drink = 0.6 oz pur e alcohol) [facility] Inpatient Questions Answer Date Recorded Does [...] EDT TH Visit (TeleHealth) [place] [address] Lilli Joy APRN [facility] [place] [address] 11/30/2023 12:50 PM EDT [place]oint[place] [phone] 12/03/2023 12:30 PM EDT Office [place] [phone] Hollie Ambriz MD [facility] [place] [address] documented as of this encounter Visit Diagnoses Diagnosis senior care 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 Encounter for long-term (current) use of antibiotics 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 Acute osteomyelitis, other specified site Acute hematogenous osteomyelitis, unspecified site documented in this encounter Care Teams Clinical Research Technician Relationship Specialty Start Date End Date Lorna Bal APRN [address] [place] [address] PCP - General Family Medicine 05/27/18 documented as of this encounter
--- OUTSIDE RECORDS SUMMARY | 2023-11-09 18:12 | XMS_ITS | Encounter Summary ---
Author Organization [facility] [place] [address] Care Team Providers Care Gauge Maker Name Role Phone Lorna Bal APRN Primary Care Provider [phone] [phone] Encounter Details Date Type Department Care Team (Late st Contact Info) Description 04/24/2023 Telephone Infectious Disease at [facility] [place] [phone] Meme Morataya Social History Tobacco Use Types Packs/Day Years [...] EDT TH Visit (TeleHealth) [place] [address] Lilli Joy APRN [facility] [place] [address] 11/30/2023 12:50 PM EDT [place]ointment [place] [phone] 12/03/2023 12:30 PM EDT Office Visit [place] [phone] Hollie Ambriz MD [facility] [place] [address] documented as of this encounter Visit Diagnoses Not on filedocumented in this encounter Care Teams Gauge Maker Relationship Specialty Start Date End Date Lorna Bal APRN [address] [place] [address] PCP - General Family Medicine 05/27/18 documented as of this encounter
--- OUTSIDE RECORDS SUMMARY | 2023-11-09 18:12 | XMS_ITS | Encounter Summary ---
Author Organization [facility] [place] [address] Care Team Providers Care Giver Name Role Phone Lorna Bal APRN Primary Care Provider [phone] Encounter Details Date Type Department Care Team (Late st Contact Info) Description 10/27/2022 Telephone [place] [id number] Halima García Social History Tobacco Use Types Packs/Day Years Used Date Smoking Tobacco: Never Smokeless Tobacco: Never Comments:NO SMOKERS IN THE H OME Alcohol Use Standard Drinks/Week Comments No 0 (1 standard drink = 0.6 oz pur e alcohol) [facility] Inpatient Questions Answer Date Recorded Does [...] * Telephone Encounter - Halima García - 11/04/2022 11:56 AM EDT Called and relayed message to home health aid. * Telephone Encounter - Halima García - 10/27/2022 12:48 PM EDTSummary: Request Mom called, pt's caregiver would like to take the patient swimming, they have an adhesive bandage to cover the pinhole. Please advise documented in this encounter Plan of Treatment Upcoming Encounters Date Type Department Care Team (Late st Contact Info) Description 11/19/2023 2:30 PM EDT TH Visit (TeleHealth) [place] [address] Lilli Joy APRN [facility] [place] [address] 11/30/2023 12:50 PM EDT [place]oint[place] [phone] 12/03/2023 12:30 PM EDT Office [place] [address] oHllie Ambriz MD [facility] [place] [address] documented as of this encounter Visit Diagnoses Not on filedocumented in this encounter Care Teams Giver Relationship Specialty Start Date End Date Lorna Bal APRN [address] [place] [address] PCP - General Family Medicine 05/27/18 documented as of this encounter
--- OUTSIDE RECORDS SUMMARY | 2023-11-09 18:12 | XMS_ITS | Encounter Summary ---
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, other site Procedures CT Thoracic Spine wo Contrast (Generic) Lorna Bal APRN [address] [place] [address] [facility] [place] [address] Referral ID Status Reason Start Date Expiration Date V isits Requested Visits Authorized [id number] Closed Specialty Service Requested 12/25/2022 06/24/2024 1 1 * Diagnostic Test (Routine) - Closed Specialty Diagnoses / Procedures Referred By Contac t Referred To Contact Radiology Diagnoses Cerebral palsy, unspecified type 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, other site Procedures CT Cervical Spine wo Contrast Lorna Bal APRN [address] [place] [address] [facility] [place] [address] Referral ID Status Reason Start Date Expiration Date V isits Requested Visits Authorized [id number] Closed Specialty Service Requested 12/25/2022 06/24/2024 1 1 Reason for Visit * Diagnostic Test (Routine) - Closed Specialty Diagnoses / Procedures Referred By Contmonica t Referred To Contact Radiology Diagnoses Cerebral palsy, unspecified type 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, other site Procedures CT Cervical Spine wo Contrast Lorna Bal APRN [address] [place] [address] [facility] [place] [address] Referral ID Status Reason Start Date Expiration Date V isits Requested Visits Authorized [id number] Closed Specialty Service Requested 12/25/2022 06/24/2024 1 1 Encounter Details Date Type Department Care Team (Latest Contact Info) Description 12/31/2022 10:50 AM EDT - 12/31/2022 11:59 PM EDT Hospital Encounter [place] [address] Lorna Bal APRN [address] [place], [place] [id number] Cerebral palsy, unspecified type; Congenital deformity of spine; Chronic osteomyelitis with draining sinus, other site Discharge Disposition: Home Social History Tobacco Use [...] on file documented as of this encounter Medications at Time of Discharge Medication Sig Dispensed Refills Start Date End Date polyethylene glycoL (Miralax) 17 gram oral powder packet Take 17 g by mouth daily. 07/09/2022 senna (Senokot) 8.6 mg tablet Take 2 tablets by mouth nightly. baclofen (Lioresal) 10 mg tablet Take 10 mg by mouth 3 times daily. nystatin (MYCOSTATIN) 100,000 unit/gram Powder Apply 1 each topically 2 times daily. 06/02/2022 10/29/2023 documented as of this encounter Plan of Treatment Upcoming Encounters Date Type Department Care Team (Late st Contact Info) Description 11/19/2023 2:30 PM EDT TH Visit (TeleHealth) [place] [address] Lilli Joy APRN [facility] [place] [address] 11/30/2023 12:50 PM EDT Appointment [place] [address] 12/03/2023 12:30 PM EDT Office Visit Infectious [place] [address] Hollie Ambriz MD [facility] [place] [address] documented as of this encounter Procedures Procedure Name Priority Date/Time Associated Diagnosis Comments CT THORACIC SPINE WO CONTRAST Routine 12/31/2022 11:06 AM EDT Cerebral palsy, unspecified type 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 ??Minimal cervical degenerative change. 2. ??Severe thoracolumbar rotatory dextroscoliosis. 3. ??Mild left C2-C3, T9-T10, and T10-T11 neural foraminal narrowing. I have personally reviewed the image(s) and the resident's interpretation and agree with the findings, Svitlana Mcbride at 12/31/2022 4:00 PM Thank you for letting us participate in the care of this patient. ??If you are a health care provider and have any questions regarding this report, please contact the number below. ??For patients who have questions please contact the health foster care social worker that requested your imaging first. ? Electronically signed by: Svitlana Mcbride [facility] ([phone]), at 12/31/2022 4:00 PM Narrative 12/31/2022 4:00 PM EDT EXAMINATION: CT THORACIC SPINE WO CONTRAST (GENERIC), CT CERVICAL SPINE WO CONTRAST CLINICAL HISTORY: needs prior to surgery with Dr Augustin in [place] TECHNIQUE: CT cervical and thoracic spine performed without intravenous contrast administration. COMPARISON: CT lumbar spine 09/26/2022 FINDINGS: Cervical spine findings: Visualized posterior fossa contents demonstrate markedly enlarged left lateral ventricle from severe cerebral posterior back encephalomalacia. Mild left and moderate cerebellar atrophy. Alignment is maintained and the cervical spine. Normal vertebral body heights. Asymmetric posterior disc height loss at C4-5 and mild disc height loss at C5-6 and C6-7. Small anterolateral marginal osteophytes at C5-C6. Minimal uncovertebral arthropathy at C2-C3 and C3-C4. Mild left foraminal narrowing at C2-C3, otherwise no significant foraminal stenosis in the cervical spine. No significant spinal canal stenosis. No prevertebral soft tissue swelling. No cervical lymphadenopathy. The thyroid gland appears normal. Thoracic spine findings: The thoracic vertebra are numbered with T1 being the first rib-bearing vertebra. Extensive posterior spinal fixation throughout the thoracic region with rods and screws, extending from T1 through the sacrum. Severe rotatory dextroscoliosis of the thoracic vertebra centered at T9-10 with resultant mild degenerative disease, including disc calcification along the concave side of the curve, mainly at T7-T10. Scoliotic deformity produces acute curvature of the posterior right-sided ribs. Normal vertebral body heights. Mild left-sided neural foraminal narrowing at T9-T10, and T10-T11. Spinal canal views are limited by hardware artifact. The visualized portions of the lung appear normal, limited by motion. Procedure Note Svitlana Mcbride MD - 12/31/2022 EXAMINATION: CT THORACIC SPINE WO CONTRAST (GENERIC), CT CERVICAL SPINEWO CONTRAST CLINICAL HISTORY: needs prior to surgery with Dr Augustin [place] TECHNIQUE: CT cervical and thoracic spine performed without intravenous contrast administration. COMPARISON: CT lumbar spine 09/26/2022 FINDINGS: Cervical spine findings: Visualized posterior fossa contents demonstrate markedly enlarged leftlateral ventricle from severe cerebral posterior back encephalomalacia. Mild leftand moderate cerebellar atrophy. Alignment is maintained and the cervicalspine. Normal vertebral body heights. Asymmetric posterior disc height loss atC4-5 and mild disc height loss at C5-6 and C6-7. Small anterolateral marginalosteophytes at C5-C6. Minimal uncovertebral arthropathy at C2-C3 and C3-C4. Mildleft foraminal narrowing at C2-C3, otherwise no significant foraminal stenosisin the cervical spine. No significant spinal canal stenosis. No prevertebral soft tissue swelling. No cervical lymphadenopathy. Thethyroid gland appears normal. Thoracic spine findings: The thoracic vertebra are numbered with T1 being the first rib-bearingvertebra. Extensive posterior spinal fixation throughout the thoracic region withrods and screws, extending from T1 through the sacrum. Severe rotatory dextroscoliosis of the thoracic vertebra centered at T9-10with resultant mild degenerative disease, including disc calcification alongthe concave side of the curve, mainly at T7-T10. Scoliotic deformity producesacute curvature of the posterior right-sided ribs. Normal vertebral bodyheights. Mild left-sided neural foraminal narrowing at T9-T10, and T10-T11. Spinal canalviews are limited by hardware artifact. The visualized portions of the lung appear normal, limited by motion. IMPRESSION 1. Minimal cervical degenerative change. 2. Severe thoracolumbar rotatory dextroscoliosis. 3. Mild left C2-C3, T9-T10, and T10-T11 neural foraminal narrowing. I have personally reviewed the image(s) and the resident's interpretationand agree with the findings, Svitlana Mcbride at 12/31/2022 4:00 PM Thank you for letting us participate in the care of this patient. If youare a health care provider and have any questions regarding this report,please contact the number below. For patients who have questions please contactthe health foster care social worker that requested your imaging first. Electronically signed by: Svitlana Mcbride [facility]([phone]), at 12/31/2022 4:00 PM Lorna Bal APRN [facility] [place] ORDERABLES * CT Cervical Spine wo Contrast (12/31/2022 11:06 AM EDT) Anatomical Region Laterality Modality C-spine Computed Tomogra phy Impressions 12/31/2022 4:00 PM EDT 1. ??Minimal cervical degenerative change. 2. ??Severe thoracolumbar rotatory dextroscoliosis. 3. ??Mild left C2-C3, T9-T10, and T10-T11 neural foraminal narrowing. I have personally reviewed the image(s) and the resident's interpretation and agree with the findings, Svitlana Mcbride at 12/31/2022 4:00 PM Thank you for letting us participate in the care of this patient. ??If you are a health care provider and have any questions regarding this report, please contact the number below. ??For patients who have questions please contact the health foster care social worker that requested your imaging first. ? Electronically signed by: Svitlana Mcbride [facility] ([phone]), at 12/31/2022 4:00 PM Narrative 12/31/2022 4:00 PM EDT EXAMINATION: CT THORACIC SPINE WO CONTRAST (GENERIC), CT CERVICAL SPINE WO CONTRAST CLINICAL HISTORY: needs prior to surgery with Dr Augustin [place] TECHNIQUE: CT cervical and thoracic spine performed without intravenous contrast administration. COMPARISON: CT lumbar spine 09/26/2022 FINDINGS: Cervical spine findings: Visualized posterior fossa contents demonstrate markedly enlarged left lateral ventricle from severe cerebral posterior back encephalomalacia. Mild left and moderate cerebellar atrophy. Alignment is maintained and the cervical spine. Normal vertebral body heights. Asymmetric posterior disc height loss at C4-5 and mild disc height loss at C5-6 and C6-7. Small anterolateral marginal osteophytes at C5-C6. Minimal uncovertebral arthropathy at C2-C3 and C3-C4. Mild left foraminal narrowing at C2-C3, otherwise no significant foraminal stenosis in the cervical spine. No significant spinal canal stenosis. No prevertebral soft tissue swelling. No cervical lymphadenopathy. The thyroid gland appears normal. Thoracic spine findings: The thoracic vertebra are numbered with T1 being the first rib-bearing vertebra. Extensive posterior spinal fixation throughout the thoracic region with rods and screws, extending from T1 through the sacrum. Severe rotatory dextroscoliosis of the thoracic vertebra centered at T9-10 with resultant mild degenerative disease, including disc calcification along the concave side of the curve, mainly at T7-T10. Scoliotic deformity produces acute curvature of the posterior right-sided ribs. Normal vertebral body heights. Mild left-sided neural foraminal narrowing at T9-T10, and T10-T11. Spinal canal views are limited by hardware artifact. The visualized portions of the lung appear normal, limited by motion. Procedure Note Svitlana Mcbride MD - 12/31/2022 EXAMINATION: CT THORACIC SPINE WO CONTRAST (GENERIC), CT CERVICAL SPINEWO CONTRAST CLINICAL HISTORY: needs prior to surgery with Dr Augustin [place] TECHNIQUE: CT cervical and thoracic spine performed without intravenous contrast administration. COMPARISON: CT lumbar spine 09/26/2022 FINDINGS: Cervical spine findings: Visualized posterior fossa contents demonstrate markedly enlarged leftlateral ventricle from severe cerebral posterior back encephalomalacia. Mild leftand moderate cerebellar atrophy. Alignment is maintained and the cervicalspine. Normal vertebral body heights. Asymmetric posterior disc height loss atC4-5 and mild disc height loss at C5-6 and C6-7. Small anterolateral marginalosteophytes at C5-C6. Minimal uncovertebral arthropathy at C2-C3 and C3-C4. Mildleft foraminal narrowing at C2-C3, otherwise no significant foraminal stenosisin the cervical spine. No significant spinal canal stenosis. No prevertebral soft tissue swelling. No cervical lymphadenopathy. Thethyroid gland appears normal. Thoracic spine findings: The thoracic vertebra are numbered with T1 being the first rib-bearingvertebra. Extensive posterior spinal fixation throughout the thoracic region withrods and screws, extending from T1 through the sacrum. Severe rotatory dextroscoliosis of the thoracic vertebra centered at T9-10with resultant mild degenerative disease, including disc calcification alongthe concave side of the curve, mainly at T7-T10. Scoliotic deformity producesacute curvature of the posterior right-sided ribs. Normal vertebral bodyheights. Mild left-sided neural foraminal narrowing at T9-T10, and T10-T11. Spinal canalviews are limited by hardware artifact. The visualized portions of the lung appear normal, limited by motion. IMPRESSION 1. Minimal cervical degenerative change. 2. Severe thoracolumbar rotatory dextroscoliosis. 3. Mild left C2-C3, T9-T10, and T10-T11 neural foraminal narrowing. I have personally reviewed the image(s) and the resident's interpretationand agree with the findings, Svitlana Mcbride at 12/31/2022 4:00 PM Thank you for letting us participate in the care of this patient. If youare a health care provider and have any questions regarding this report,please contact the number below. For patients who have questions please contactthe health foster care social worker that requested your imaging first. 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
--- OUTSIDE RECORDS SUMMARY | 2023-11-09 18:12 | XMS_ITS | Encounter Summary ---
Author Organization [facility] Address [facility] [place] [address] Care Team Providers Care 3D Technologist Name Role Phone Lorna Bal APRN Primary Care Provider [phone] Reason for Visit * Consultation (Urgent) - Authorized Specialty Diagnoses / Procedures Referred By Contmonica t Referred To Contact Infectious Diseases Diagnoses Osteomyelitis, unspecified site, unspecified type Spinal cord abscess Lorna Bal APRN [address] [place] [address] [facility] [address] [place] [id number] Referral ID Status Reason Start Date Expiration Date Visits Requested Visits Authorized [id number] Authorized Consult, Test & Treat PCP Updated and/or Approved 12/23/2022 12/23/2023 6 6 Encounter Details Date Type Department Care Team (Late st Contact Info) Description 01/29/2023 9:30 AM EDT Office [place] [address] George Tipton MD [facility] [place] [address] 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 Social History Tobacco [...] Sign Reading Time Taken Comments Blood Pressure 122/74 01/29/2023 9:27 AM EDT Pulse 95 01/29/2023 9:27 AM EDT Temperature 36.1 ??C (96.9 ??F) 01/29/2023 9:27 AM ED T Respiratory Rate 16 01/29/2023 9:27 AM EDT Oxygen Saturation 100% 01/29/2023 9:27 AM EDT Inhaled Oxygen Concentration - - Weight - - Height 157.5 cm (5' 2.01) 01/29/2023 9:27 AM ED T Body Mass Index - - documented in this encounter Progress Notes * George Tipton MD - 01/29/2023 9:30 AM EDT INFECTIOUS DISEASE OUTPATIENT CONSULTATION NOTE Reason for Consult: Lumbar infection with hardware in place History of Present Illness: Tana Cavazos is [...] imaging showed multiple paraspinal and spinal collections. nitially levofloxacin was started. patient underwent IR drainage on 07/24. After deliberation it was decided to continue levofloxacin withweekly monitoring and use surgery as a last resort. Blood cultures were positive for Pseudomonas ory zihabitan. Levofloxacin was extended for 6 more weeks. After completing therapy she was switched to doxycycline to cover corynebacterium and strep species. On 08/27 Superficial cultures at OSH were positive for Staphylococcus hemolyticus and S. Capitis. She was evaluated in ID clinic on 09/10, Doxycyline was continued and she was switched to Bactrim on 09/25. She has remained on bactrim. Followed up with in [place]. MRI was not possible sec. To hardware. CRP/ESR was trending upwards. NSG referred her to [facility] for surgery and patient is scheduled for a procedure on 02/11/23. Patient presents to ID clinic to reestablish care in anticipation that she will need antibiotics after her surgery since she will have new hardware in setting of chronic infection. Patient is accompanied by 2 caregivers. According to the caregivers patient lives in a house in [place] with another roommate. They have been taking care of her for 7 years. Patient received flu shot last Thursday Past Medical History: Reviewed I have reviewed Vital Signs: BP 122/74, HR 95, RR 16, 100% Labs:Labs from July reviewed Antibiotics: Bactrim Microbiology: 07/03/2022 blood culture positive for E. coli 07/28/2022 blood culture positive for Pseudomonas oryzihabitans 08/27/2022 superficial wound culture positive for Staphylococcus hemolyticus and Staphylococcus capitis Imaging: IMPRESSION 1. Minimal cervical degenerative change. 2. Severe thoracolumbar rotatory dextroscoliosis. 3. Mild left C2-C3, T9-T10, and T10-T11 neural foraminal narrowing Past Surgical History: Past Surgical History: Procedure Laterality Date BACK SURGERY scoliosis repair HIP OSTEOTOMY bilateral IR ALL DRAINAGE PROCEDURES 06/25/2022 IR All Drainage Procedures 06/25/[address] [facility] RAD IR ALL DRAINAGE PROCEDURES 07/04/2022 IR All Drainage Procedures 07/04/[address] [facility] IR ALL DRAINAGE PROCEDURES 07/24/2022 IR All Drainage Procedures 07/24/[address] [facility] RAD IR ALL DRAINAGE PROCEDURES 09/26/2022 IR All Drainage Procedures 09/26/2022 Jamaal Jenkins, DO [facility] RAD IR DRAIN CHECK/CHANGE/REMOVE 07/01/2022 IR Drain Check/Change/Remove 07/01/2022 Jamaal Jenkins, DO [facility] RAD IR DRAIN CHECK/CHANGE/REMOVE 08/11/2022 IR Drain Check/Change/Remove 08/11/[address] [facility] RAD IR DRAIN CHECK/CHANGE/REMOVE 08/25/2022 IR Drain Check/Change/Remove 08/25/2022 Jamaal Jenkins, DO [facility] RAD IR DRAIN CHECK/CHANGE/REMOVE 09/10/2022 IR Drain Check/Change/Remove 09/10/[address] [facility] RAD PRO APPLY OF HIP CASTS, TWO LEGS 08/15/2010 CAST APPLICATION, HIP SPICA, BOTH LEGS performed by BARRERA OLIVER at [facility] MAIN OR PRO I&D, POST SPINE, LUMB/SACR/LUMBOSAC N/A 05/20/2014 @I & D, OPEN, DEEP ABSCESS, LUMBAR, SACRAL, LUMBOSACRAL performed by Freddy Isbell MD at [facility] MAIN OR PRO I&D, POST SPINE, LUMB/SACR/LUMBOSAC N/A 05/26/2014 @I & D, OPEN, DEEP ABSCESS, LUMBAR, SACRAL, LUMBOSACRAL performed by Freddy Isbell MD at [facility] MAIN OR PRO IMPACT TOOTH REMOV COMP BONY N/A 06/14/2018 SURGICAL EXTRACTIONS, REMOVAL OF IMPACTED TOOTH, COMPLETELY BONY (WRVU 1.93) performed by Keith Cotton MD at [facility] OSC PRO OSTEOTOMY FEMUR SHAFT/SUPRACONDY 08/15/2010 ??OSTEOTOMY, FEMUR SHAFT OR SUPRACONDYLAR W/O FIXATION performed by BARRERA OLIVER at [facility] MAIN OR PRO RECONSTRUC HIP SOCKET, RESEC FEM HEAD 08/15/2010 ??ACETABULOPLASTY (GIRDLESTONE), RESECTION FEMORAL HEAD, BILATERAL performed by BARRERA OLIVER [facility] MAIN OR PRO REMOVAL DEEP IMPLANT 08/15/2010 REMOVAL IMPLANT, DEEP, BRUNO performed by BARRERA OLIVER at [facility] MAIN OR PRO REMOVAL ERUPTED TOOTH WITH ELEVATION OF MUCOPERIOSTEAL FLAP N/A 06/14/2018 SURGICAL EXTRACTIONS REQUIRING ELEVATION OF MUCOPERIOSTEAL FLAP AND REMOVAL OF BONE OR SECTION OF TOOTH (WRVU 1.09) performed by Keith Cotton MD at [facility] OSC PRO REMOVE INFUSN DEVICE/PUMP N/A 05/11/2014 REMOVAL OF SPINE INFUSION PUMP performed by Jamaal Samuel MD at [facility] MAIN OR PRO REMOVE SPINAL CANAL CATHETER N/A 05/11/2014 REMOVAL OF INTRATHECAL OR EPIDURAL CATHETER performed by Jamaal Samuel MD at [facility] MAIN OR PRO REPR, DURAL/CSF LEAK, NOT REQ LAMINECTOMY N/A 05/20/2014 @REPAIR DURAL\CSF LEAK,NOT REQUIRING LAMINECTOMY performed by Freddy Isbell MD at [facility] MAIN OR Allergies: Allergies Allergen Reactions Fluoxetine Other (See Comments) HIVES, HEART RACES Tegaderm [Transparent Dressings] Itching and Dermatitis Please use [id number] Penicillins Immunization History: Immunization History Administered Date(s) Administered Influenza Vaccine (Novel) [id number], Injectable 02/25/2009 Influenza Vaccine w/Preservative, Split 04/25/2011 Influenza Vaccine, Whole 03/27/2009 Family History: Family History Problem Relation Age of Onset Cancer Maternal Grandmother Heart Disease Maternal Grandfather Social History: Hx of CP, lives in a senior care with care givers. ROS: 14 point ROS (-) except as above Physical Exam Vitals and nursing note reviewed. Constitutional: General: She is not in acute distress. Comments: Pleasant Babbles at times Does not follow commands HENT: Head: Normocephalic. Right Ear: External ear normal. Left Ear: External ear normal. Nose: Nose normal. Mouth/Throat: Mouth: Mucous membranes are moist. Eyes: Extraocular Movements: Extraocular movements intact. Cardiovascular: Rate and Rhythm: Normal rate and regular rhythm. Heart sounds: No murmur heard. Pulmonary: Effort: Pulmonary effort is normal. Breath sounds: Normal breath sounds. No wheezing. Abdominal: General: Bowel sounds are normal. There is no distension. Palpations: Abdomen is soft. Tenderness: There is no abdominal tenderness. Musculoskeletal: Right lower leg: No edema. Left lower leg: No edema. Comments: Right wrist incision scar Midline lumbar scar, small open with minimal redness in the midline, no discharge or tenderness around the opening Skin: General: Skin is warm. Neurological: Comments: Does not follow commands Assessment and Plan: Patient is a 27-year-old female with history of spastic quadriplegia, cerebral palsy and scoliosis status post multiple surgical intervention and bilateral [place] in 2010 who was admitted in June 2022 with E. coli and Pseudomonas bacteremia of unclear origin with paraspinal collections statuspost IR drain placement that was treated with IV antibiotics inpatient and oral zenon quinolones. Patient has been on Bactrim prophylaxis based on superficial skin cultures. Patient is being evaluated by neurosurgery in [facility] and is scheduled to undergo revision lumbar interbody fusion. We are evaluating the patient in anticipation that she will need antibiotics postprocedure. After discussing with the caregivers we decided to hold Bactrim as it will increase the yield of intraoperative cultures. Once surgery is performed in [facility] patient will need ID follow-up inpatient and then her care can be transitioned over to our clinic since it is closer to [place]. At this time Bactrim will be held and caregivers were advised to monitor for signs of infection including redness swelling or fevers. If redness and swelling worsens they can resume Bactrim and call our clinic. If patient remains stable she should stay off bactrim until the surgery is performed. Bactrim refill will be provide incase she develops redness and swelling Recommendations: Hold bactrim for now Proceed with surgery on 02/11 Follow up in ID clinic post operatively as needed Plan discussed with Dr. Nikolay Tipton MD Infectious Diseases Fellow-[id number] [facility] Pager: [phone] 01/28/2023 10:38 AM * Nikolay Toledo MD - 01/29/2023 9:30 AM EDT ID Attending Attestation I have seen and examined the patient and reviewed the fellow's above history, and I agree with the details as written. The assessment and plan were formulated in discussion with me and I agree with them as documented, with the following additions/modifications: Patient has been treated with prolonged antibiotic courses to treat presumed infected collections surrounding old lumbar spinal hardware, though these antibiotics have been targeted against either organisms that grew on blood Cxs or on superficial swab Cxs. It sounds like attempts at sampling theseactual collections have not yielded growth of any specific organisms, and as such, it is difficult to say definitively whether these are sterile or infected. She has been recently on a prolonged course of TMP-SMX, recommended by Dr. Dasilva in early September 2022, and is planned to undergo surgical removal of this hardware later this month at a hospital in [place]. I actually think this poses a good opportunity to try holding antibiotics to increase the yield of intra- operative Cxs, to potentially guide antibiotic treatment in the post-operative setting. While we did provide a refill for this patient's TMP-SMX, we have asked her caregivers to actually hold this antibiotic for as long as able, with resumption only if she develops signs or symptoms of breakthrough infection between now and her surgery. We will plan to see her back in the ID office after her surgery occurs. Nikolay Toledo MD Staff Physician in Infectious Diseases documented in this encounter Miscellaneous Notes * Addendum Note - Nikolay Toledo MD - 01/29/2023 9:30 AM EDTAddended by: NIKOLAY TOLEDO on: 02/03/2023 05:09 PM Modules accepted: Level of Service documented in this encounter Plan of Treatment Upcoming Encounters Date Type Department Care Team (Late st Contact Info) Description 11/19/2023 2:30 PM EDT TH Visit (TeleHealth) [place] [address] Lilli Joy APRN [facility] [place] [address] 11/30/2023 12:50 PM EDT [place] [phone] 12/03/2023 12:30 PM EDT Office [place] [phone] Nikolay Toledo MD [facility] [place] [address] documented as of this encounter Visit Diagnoses Diagnosis 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
--- OUTSIDE RECORDS SUMMARY | 2023-11-09 18:12 | XMS_ITS | Encounter Summary ---
[place] [address] Care Team Providers Care Pastoral Assistant Name Role Phone Lorna Bal APRN Primary Care Provider [phone] Encounter Details Date Type Department Care Team (Latest Contact Info) Description 09/09/2022 Travel Social History Tobacco Use Types Packs/Day Years Used Date Smoking Tobacco: Never Smokeless Tobacco: Never Comments:NO SMOKERS IN THE H OME Alcohol Use Standard Drinks/Week Comments No 0 (1 standard drink = 0.6 oz pur e alcohol) [facility] Inpatient Questions Answer Date Recorded Does Anyone [...] EDT TH Visit (TeleHealth) Infectious Disease at [facility] [id number] Lilli Joy APRN [facility] [place] [address] 11/30/2023 12:50 PM EDT Appointment [place] [address] 12/03/2023 12:30 PM EDT Office Visit [place] [address] Hollie Ambriz MD [facility] [address] documented as of this encounter Visit Diagnoses Not on filedocumented in this encounter Care Teams Pastoral Assistant Relationship Specialty Start Date End Date Lorna Bal APRN [address] [place] [address] PCP - General Family Medicine 05/27/18 documented as of this encounter
--- OUTSIDE RECORDS SUMMARY | 2023-11-09 18:12 | XMS_ITS | Encounter Summary ---
Author Organization [facility] Address [facility] [place] [address] Care Team Providers Care Business Improvement Manager Name Role Phone Lorna Bal APRN Primary Care Provider [phone] Reason for Visit * Reason Comments Follow-up Encounter Details Date Type Department Care Team (Late st Contact Info) Description 03/26/2023 10:00 AM EST Office [place] [address] George Tipton MD [facility] [place] [address] 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 Dx) Social History Tobacco Use Types Packs/Day Years Used Date Smoking Tobacco: Never Smokeless Tobacco: Never Tobacco Cessation:Counseling Given: Not Answered Comments:NO SMOKERS IN THE HOME Alcohol Use Standard Drinks/Week Comments No 0 (1 standard drink = 0.6 oz pur e alcohol) [facility] Inpatient Questions Answer Date Recorded Does [...] Sign Reading Time Taken Comments Blood Pressure 113/75 03/26/2023 9:59 AM EST Pulse 94 03/26/2023 9:59 AM EST Temperature 36.6 ??C (97.9 ??F) 03/26/2023 9 :59 AM EST Respiratory Rate 17 03/26/2023 9:59 AM EST Oxygen Saturation 100% 03/26/2023 9:5 9 AM EST Inhaled Oxygen Concentration - - Weight 56.2 kg (124 lb) 03/26/2023 9:59 AM EST reported by caaregiver Height 152.4 cm (5') 03/26/2023 9:59 AM EST Body Mass Index 24.22 03/26/2023 9:59 AM EST documented in this encounter Progress Notes * George Tipton MD - 03/26/2023 10:00 AM EST INFECTIOUS DISEASE CLINIC - OUTPATIENT FOLLOW-UP NOTE History of Present Illness: Tana Shelton is a 27 y.o. female with history [...] remained on bactrim. Followed up with in [place]. MRI was not possible sec. To hardware. CRP/ESR was trending upwards. NSG referred her to [facility] for surgery. The patient went to the [...] discharged home. She completed her therapy on 03/25 Subjective: Per caregivers patients has been tolerating therapy. Her last lab work was on 03/13. They were unable to draw labs last week. No diarrhea recently. No abdominal tenderness Pertinent Medications: Reviewed Vital signs: BP 113/75, HR 94, RR 17, Labs: 03/13 WBC 4.1, hemoglobin 8.2, platelets 300, ESR 58 --> 42 -->37 Sodium 140, potassium 4.2, creatinine 0.4 total bilirubin 0.2 AST 37, ALT 69, alkaline phosphatase 327 --> 343 -->276 CRP 2.9 Microbiology: Reviewed Imaging: Reviewed ROS: 14 point ROS (-) except as above Physical Exam Vitals and nursing note reviewed. Constitutional: General: She is not in acute distress. Comments: Awake HENT: Head: Normocephalic and atraumatic. Right Ear: External ear normal. Left Ear: External ear normal. Nose: Nose normal. Mouth/Throat: Mouth: Mucous membranes are moist. Eyes: Extraocular Movements: Extraocular movements intact. Pupils: Pupils are equal, round, and reactive to light. Cardiovascular: Rate and Rhythm: Normal rate and regular rhythm. Heart sounds: Normal heart sounds. No murmur heard. Pulmonary: Effort: Pulmonary effort is normal. No respiratory distress. Breath sounds: Normal breath sounds. No wheezing. Abdominal: General: Bowel sounds are normal. There is no distension. Palpations: Abdomen is soft. Tenderness: There is no abdominal tenderness. Musculoskeletal: Comments: Thin extremities Skin: General: Skin is warm. Neurological: General: No focal deficit present. Mental Status: She is oriented to person, place, and time. Psychiatric: Mood and Affect: Mood normal. Assessment/Plan: Patient is a 27-year-old female with [...] to 2.9 and wound appears well healed. Patient has an elevated CRP at 86.3 today. Labs from OSH shows it was down to 29.3 g/dl. PICC line removed in the clinic as she had completed her therapy. We recommend repeat CRP in 1 week and if continues to trend upwards will need repeat imaging. O/E wound appeared well healed but elevated CRP remains concerning. Patient has retained hardware and will need long antibiotics suppression. Since patient ws swell controlled on bactrim we intend to start bactrim. CMP ordered prior to starting bactrim showed transaminitis. Reviewing prior labs ALT and ALP were elevated since January. Patient is taking tylenol which may be contributing to transaminitis. Out patient USG ordered which showed calcified GB neck stone. No acute cholecystitis seen. Recommendations: Check CMP and CRP in 1 week Start Bactrim 1 tab PO BID George Tipton MD Infectious Diseases Fellow- [id number] Pager: [phone] 03/25/2023 4:00 PM Plan discussed with Dr. Gabo Trevino This note was created using [employer]) voice recognition software. I have seen the patient and reviewed and confirmed the salient history and physical exam findings and I agree with the details as written by Dr Tipton. The assessment and plan were formulated in discussion with me and I agree with them as documented. Detailed history reviewed and as noted above. Completed course of IV treatment, Vanco and Zosyn. Her wound looks very good and there is no tenderness in the area. She has some abdominal distension inclinic today, so recommended further evaluation with ultrasound, today if possible. Her CRP is elevated which could be related to abdomen vs lumbosacral/pelvic osteo vs other issue. Checking ESR. May need repeat imaging. Agree with Bactrim for chronic suppression, but if there is anongoing active process, she will need reevaluation to determine whether additional IV treatment is indicated. Addendum: ESR is improved at 69 but still elevated. RUQ ultrasound shows gallstone at GB neck without evidence of cholecystitis. Recommend repeat imaging and repeat ESR to further evaluate. Continue Bactrim for now. Repeat labs in 1-2 weeks from initiation. Gabo Trevino MD [facility] Infectious Disease * Olinda Barahona RN - 03/26/2023 10:00 AM EST Picc Catheter Removal: PICC Removal Catheter Removal: Date: 03/26/23 [ X] Catheter removed intact with 37 cm removed from left arm, per MD order. Reason for removal: [ X ] End of Therapy [ ] Phlebitis [ ] Cellulitis [ ] Catheter-related infection: [ ] Suspected [ ] Documented [ ] Thrombus: [ ] Suspected [ ] Documented [ ] Infiltration [ ] Other Description of insertion/exit site: [X ] no signs of infection, no bleeding at site [ ] other (see narrative below) Patient Education: [ X ] Patient instructed to observe site for redness, swelling, discomfort and /or exudates and call a Healthcare Provider if any of these signs/symptoms present. Comments:The following teaching sheet was provided to patient and patient's caregivers along with education regarding monitoring parameters and limitations. Pt's caregiver expressed understanding of teaching. Patient Guidelines for Self-Care after PICC (Peripherally Inserted Central Catheter) Removal Your PICC was removed on 03/26/23 at 11:20 A Petroleum ointment was applied to the insertion site (where the PICC went into your skin). The nurse applied gauze and a transparent (see-through) dressing over the insertion site. To help your PICC insertion site heal: *Avoid heavy lifting (for example, no more than a gallon of milk) or vigorous activities for 24 hours * Keep the dressing over the insertion site dry for 24 hours * You can remove the dressing after 24 hours. Call your doctor after your PICC has been removed if you experience any of the following: * Fever (temperature over 100.1F) * Chills * Drainage from the insertion site ( including bleeding). *Redness, warmth, pain, swelling, or a pink/red streak going up your arm *A knot at the insertion site or anywhere in the arm *If bleeding should occur, hold firm pressure for 3-5 minutes. Do not remove the dressing that the nurse put on when the PICC was removed. If needed, apply another dressing over the first dressing. If bleeding does not stop, call or seek medical attention. Gabo Rubio MD - 03/26/2023 10:00 AM EST I have seen the patient and reviewed and confirmed the salient history and physical exam findings and I agree with the details as written by Dr Tipton. The assessment and plan were formulated in discussion with me and I agree with them as documented. Detailed history reviewed and as noted above. Completed course of IV treatment, Vanco and Zosyn. Her wound looks very good and there is no tenderness in the area. She has some abdominal distension inclinic today, so recommended further evaluation with ultrasound, today if possible. Her CRP is elevated which could be related to abdomen vs lumbosacral/pelvic osteo vs other issue. Checking ESR. May need repeat imaging. Agree with Bactrim for chronic suppression, but if there is anongoing active process, she will need reevaluation to determine whether additional IV treatment is indicated. Addendum: ESR is improved at 69 but still elevated. RUQ ultrasound shows gallstone at GB neck without evidence of cholecystitis. Recommend repeat imaging and repeat ESR to further evaluate. Continue Bactrim for now. Repeat labs in 1-2 weeks from initiation. Gabo Trevino MD [facility] Infectious Disease documented in this encounter Plan of Treatment Upcoming Encounters Date Type Department Care Team (Late st Contact Info) Description 11/19/2023 2:30 PM EDT TH Visit (TeleHealth) [place] [address] Lilli Joy [place] [facility] [place] [address] 11/30/2023 12:50 PM EDT [place] [phone] 12/03/2023 12:30 PM EDT Office [place] [address] Hollie Ambriz MD [facility] [address] INFECTIOUS [place] [address] Scheduled Orders Name Type Priority Associated Diagnoses Orde r Schedule Cath, Percutaneous Central Cath Removal (PICC) Procedures Routine 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 Expected: 09/25/2023, Expires: 04/25/2024 documented as of this encounter Procedures Procedure Name Priority Date/Time Associated Diagnosis Comments HC C-REACTIVE PROTEIN Routine 03/26/2023 11:06 AM EST 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 SCAN, PERIPHERAL BLOOD Routine 11:06 AM EST HEMOGRAM Routine 03/26/2023 11:06 AM EST 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 DIFFERENTIAL, AUTOMATED Routine 03/26/2023 11:06 AM EST 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 HC ESR-SEDIMENTATION RATE, BLOOD Routine 03/26/2023 11:06 AM EST 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 HC CBC,PLT & AUTO DIFF Routine 11:06 AM EST 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 COMPREHENSIVE METABOLIC PANEL (NON-FASTING) Routine 03/26/2023 11:06 AM EST 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 documented in this encounter Results * (ABNORMAL) CRP, acute inflammation (04/16/2023 4:20 PM EST) CRP 47.2(H) <=4.9 mg/L [facility] Blood 04/16/2023 4:20 PM EST 04/16/2023 4:28 PM EST Narrative Resulting Agency Comment Spec In Lab Gabo Trevino MD CHEMISTRY ORDERABLE S Performing Organization Address City/State/[facility] Co de Phone Number [facility] [place] [address] * (ABNORMAL) Comprehensive metabolic panel (non-fasting) (04/16/2023 4:20 PM EST) Glucose Lvl 79 65 - 199 mg/dL [facility] Comment:Diabetes: >=200 mg/d L plus symptoms BUN 10 8 - 18 mg/dL [facility] Creatinine 0.49(L) 0.70 - 1.20 mg/dL [facility] Sodium 137 135 - 145 mmol/L [facility] Potassium 3.8 3.5 - 5.0 mmol/L [facility] Comment: Please note: ??Patients with WBC >100,000 may have falsely elevated Potassium levels. ??For accurate Potassium quantification in these patients send serum separator tube (gold top) for subsequent determinations. ??Contact the Clinical Chemistry Laboratory if there are any questions. Chloride 99 98 - 107 mmol/L [facility] CO2 27 22 - 31 mmol/L [facility] Anion Gap 11 5 - 15 mmol/L [facility] Calcium 9.4 8.5 - 10.5 mg/dL [facility] Total Protein 7.9 6.1 - 8.0 g/dL [facility] Albumin 4.2 3.2 - 5.2 g/dL [facility] AST 15 0 - 30 unit/L [facility] ALT 40(H) 0 - 30 unit/L [facility] Alk Phos 320(H) 35 - 105 unit/L [facility] Total Bilirubin <0.2(L) 0.2 - 1.3 mg/dL [facility] Estimated GFR 131 >=60 mL/min/1. 73 m?? [facility] Comment: This patient's estimated GFR [...] and symptoms in addition to eGFR. Blood 04/16/2023 4:20 PM EST 04/16/2023 4:28 PM EST Narrative Resulting Agency Comment Spec In Lab Gabo Trevino MD CHEMISTRY ORDERABLE S Performing Organization Address City/State/[facility] Co de Phone Number [facility] [place] [address] * US Abdomen Limited Hepatology Protocol (03/27/2023 3:24 PM EST) Anatomical Region Laterality Modality Abdomen Ultrasound 03/27/2023 3:21 PM EST Impressions 03/27/2023 3:37 PM EST 1. ??Liver is normal in size and echogenicity without focal lesion. 2. ??Calcified gallstone at the gallbladder neck. Normal wall thickness. No pericholecystic fluid. 3. ??No intra or extrahepatic biliary dilatation. 4. ??No ascites. I have personally reviewed the image(s) and the resident's interpretation and agree with the findings, Curt Dozier MD at 03/27/2023 3:31 PM Thank you for letting us participate in the care of this patient. If you are a health care provider and have any questions regarding this report, please contact the number above. For patients who have questions, please contact the health career technical counselor that requested your imaging first. ? Curt Dozier, Staff Physician Electronically Signed Final Report ?? 03/27/2023 03:36 pm Narrative 03/27/2023 3:37 PM EST Abdominal ? (Signed Final 03/27/2023 03:36 pm) PATIENT INFO: ID #: ? [id number] ?: ??[birth year] (27 yrs)(F) Name: ? TANA SHELTON ?Visit Date: 03/27/2023 03:21 pm PERFORMED BY: Attending: ?Jacoby GONZALES MD, Curt Langston Performed By: ? Shelby Gardner RDMS Referred By: ?GABO TREVINO Location: ? [place] SERVICE(S) PROVIDED: [facility] - Hepatology Protocol - Abdominal ?[id number] Limited Survey Single Organ or Quadrant - [id number] INDICATIONS: Transaminitis ------ LIVER: ------ Right Lobe Length: ?? 14.4 ?? cm Echogenicity/Echotexture: ?? Normal GALLBLADDER: Cholelithiasis: ?Mobile stone Wall Thickness: ?2. mm Focal Tenderness: ?Negative sonographic Freed's sign BILIARY TRACT: Intrahepatic Ducts: ?? Normal Extrahepatic Ducts: ?? Normal Common Duct Size: ? 3.0 ? mm FLUID COLLECTIONS: Ascites not present on 4 quadrant evaluation. Procedure Note Curt Dozier III, MD - 03/27/2023 Abdominal (Signed Final 03/27/2023 03:36 pm) PATIENT INFO: ID #: [id number] : [birth year] (27 yrs)(F) Name: TANA SHELTON Visit Date: 03/27/2023 03:21 pm PERFORMED BY: Attending: Jacoby GONZALES MD, Arthur L. Performed By: Shelby Gardner RDMS Referred By: GABO TREVINO Location: [place] SERVICE(S) [facility]: [facility] - Hepatology Protocol - Abdominal 95885 Limited Survey Single Organ or Quadrant - [id number] INDICATIONS: Transaminitis ------ LIVER: ------ Right Lobe Length: 14.4 cm Echogenicity/Echotexture: Normal GALLBLADDER: Cholelithiasis: Mobile stone Wall Thickness: 2. mm Focal Tenderness: Negative sonographic Freed's sign BILIARY TRACT: Intrahepatic Ducts: Normal Extrahepatic Ducts: Normal Common Duct Size: 3.0 mm FLUID COLLECTIONS: Ascites not present on 4 quadrant evaluation. IMPRESSION 1. Liver is normal in size and echogenicity without focal lesion. 2. Calcified gallstone at the gallbladder neck. Normal wall thickness. No pericholecystic fluid. 3. No intra or extrahepatic biliary dilatation. 4. No ascites. I have personally reviewed the image(s) and the resident's interpretation and agree with the findings, Curt Dozier MD at 03/27/2023 3:31 PM Electronically signed by: Curt Dozier MD, [facility] ([phone]), at 03/27/2023 3:31 PM Thank you for letting us participate in the care of this patient. If you are a health care provider and have any questions regarding this report, please contact the number above. For patients who have questions, please contact the health career technical counselor that requested your imaging first. Curt Dozier, Staff Physician Electronically Signed Final Report 03/27/2023 03:36 pm Gabo Trevino MD IMG US GEN ORDERABL ES * Scan, Peripheral Blood (03/26/2023 11:06 AM EST) Pathologist [facility] Estimate Normal [facility] RBC Morphology Abnormal [facility] Hypochromia Slight [facility] Stomatocytes 1-5 /HPF [facility] Stippled RBCs Present >1/HPF [facility] Blood 03/26/2023 11:0 6 AM EST 03/26/2023 11:21 AM EST Narrative Resulting Agency Comment Spec In Lab George Tipton MD HEMATOLOGY ORDERABLE S [facility] [place] [address] * Differential, Automated (03/26/2023 11:06 AM EST) [facility] Neutrophils % 62.0 % [facility] Neutr Abs (ANC) 3.69 1.70 - 6.10 x10(3)/[facility] Lymphocytes % 27.7 % [facility] Lymphocytes Abs 1.6 0.9 - 3.2 x10(3)/[facility] Monocytes % 7.7 % [facility] Monocyte Abs 0.5 0.3 - 0.9 x10(3)/[facility] Eosinophils % 1.8 % [facility] Eosinophils Abs 0.1 0.0 - 0.4 x10(3)/[facility] Basophils % 0.5 % [facility] Basophils Abs 0.0 0.0 - 0.1 x10(3)/[facility] Immature Gran % 0.30 % [facility] Comment: Immature granulocytes(IG's)percentage and absolute count will include metamyelocytes, myelocytes, and promyelocytes. Blood smears from CBCs yielding IG's will be scanned manually for concordance. If this scan disagrees with the automated IG or if promyelocytes are noted, a manual differential will be performed. Debora Gran Abs 0.02 0.00 - 0.04 x10(3)/[facility] Blood 03/26/2023 11:0 6 AM EST 03/26/2023 11:21 AM EST Narrative Resulting Agency Comment Spec In Lab George Tipton MD HEMATOLOGY ORDERABLE S [facility] [place] [address] * (ABNORMAL) Hemogram (03/26/2023 11:06 AM EST) WBC 6.0 4.0 - 9.5 x10(3)/[facility] RBC 3.07(L) 4.00 - 5.21 x10(6)/[facility] Hemoglobin 8.9(L) 11.7 - 15.5 g/dL [facility] Hematocrit 27.5(L) 35.7 - 45.8 % [facility] MCV 89.6 82.6 - 94.[address] [facility] MCH 29.0 27.1 - 32.[address] [facility] MCHC 32.4 31.7 - 35.0 g/dL [facility] Platelets 355 145 - 357 x10(3)/[facility] RDWSD 49.0(H) 37.0 - 46.0 [facility] RDWCV 15.0(H) 11.5 - 14.1 % [facility] MPV 9.1 7.6 - 12.[address] [facility] nRBC % Auto 0.0 % [facility] nRBC Abs Auto 0.000 0.000 - 0.000 x10(3)/[facility] Blood 03/26/2023 11:0 6 AM EST 03/26/2023 11:21 AM EST Narrative Resulting Agency Comment Spec In Lab George Tipton MD HEMATOLOGY ORDERABLE S [facility] [place] [address] * (ABNORMAL) Comprehensive metabolic panel (non-fasting) (03/26/2023 11:06 AM EST) Glucose Lvl 81 65 - 199 mg/dL [facility] Comment:Diabetes: >=200 mg/d L plus symptoms BUN 19(H) 8 - 18 mg/dL [facility] Creatinine 0.27(L) 0.70 - 1.20 mg/dL [facility] Sodium 140 135 - 145 mmol/L [facility] Potassium 4.3 3.5 - 5.0 mmol/L [facility] Comment: Please note: ??Patients with WBC >100,000 may have falsely elevated Potassium levels. ??For accurate Potassium quantification in these patients send serum separator tube (gold top) for subsequent determinations. ??Contact the Clinical Chemistry Laboratory if there are any questions. Chloride 104 98 - 107 mmol/L [facility] CO2 23 22 - 31 mmol/L [facility] Anion Gap 13 5 - 15 mmol/L [facility] Calcium 9.8 8.5 - 10.5 mg/dL [facility] Total Protein 7.7 6.1 - 8.0 g/dL [facility] Albumin 4.3 3.2 - 5.2 g/dL [facility] AST 45(H) 0 - 30 unit/L [facility] ALT 101(H) 0 - 30 unit/L [facility] Alk Phos 378(H) 35 - 105 unit/L [facility] Total Bilirubin <0.2(L) 0.2 - 1.3 mg/dL [facility] Estimated GFR 151 >=60 mL/min/1. 73 m?? [facility] Comment: This patient's estimated GFR [...] and symptoms in addition to eGFR. Blood 03/26/2023 11:0 6 AM EST 03/26/2023 11:21 AM EST Narrative Resulting Agency Comment Spec In Lab Gabo Trevino MD CHEMISTRY ORDERABLE S Performing Organization Address [facility] Co de Phone Number [facility] [place] [address] * (ABNORMAL) Sedimentation rate (03/26/2023 11:06 AM EST) Sed Rate 69(H) 2 - 37 mm/hr [facility] Comment: Effective April 06, 2019 new capillary photometric technology has resulted in a change in reference ranges. It is recommended that each ESR result be reviewed with its own age appropriate reference range. Blood 03/26/2023 11:0 6 AM EST 03/26/2023 11:21 AM EST Narrative Resulting Agency Comment Spec In Lab Gabo Trevino MD HEMATOLOGY ORDERABL ES Performing Organization Address [facility] Co de Phone Number [facility] [place] [address] * (ABNORMAL) CRP, acute inflammation (03/26/2023 11:06 AM EST) CRP 86.3(H) <=4.9 mg/L [facility] Blood 03/26/2023 11:0 6 AM EST 03/26/2023 11:21 AM EST Narrative Resulting Agency Comment Spec In Lab Gabo Trevino MD CHEMISTRY ORDERABLE S Performing Organization Address City/[facility] Co de Phone Number [facility] [place] [address] documented in this encounter Visit Diagnoses Diagnosis 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- Primary Acute osteomyelitis, other specified site 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 Acute osteomyelitis, other specified site documented in this encounter Care Teams Business Improvement Manager Relationship Specialty Start Date End Date Lorna Bal APRN [address] [place] [address] PCP - General Family Medicine 05/27/18 documented as of this encounter
--- OUTSIDE RECORDS SUMMARY | 2023-11-09 18:12 | XMS_ITS | Encounter Summary ---
[place] [address] Care Team Providers Care Mortgage Loan Coordinator Name Role Phone Lorna Bal APRN Primary Care Provider [phone] [phone] Reason for Referral * Consultation (Routine) - Authorized Specialty Diagnoses / Procedures Referred By Contmonica t Referred To Contact Gastroenterology Diagnoses Constipation, unspecified constipation type constipation Lorna Bal APRN [address] [place] [address] [facility] [address] [place] [phone] Referral ID Status Reason Start Date Expiration Date Visits Requested Visits Authorized [id number] Authorized Consult, Test & Treat PCP Updated and/or Approved 01/30/2023 01/30/2024 12 12 Encounter Details Date Type Department Care Team (Latest Contact Info) Description 01/30/2023 Transcribe Orders eDH Incoming Referrals [phone] Lorna Bal APRN [address] [place], [place] [id number] Constipation, unspecified constipation type Social History Tobacco Use Types Packs/Day Years Used Date Smoking Tobacco: Never Smokeless Tobacco: Never Comments:NO SMOKERS IN THE H OME Alcohol Use Standard Drinks/Week Comments No 0 (1 standard drink = 0.6 oz pur e alcohol) [facility] Inpatient Questions Answer Date Recorded Does [...] EDT TH Visit (TeleHealth) [place] [address] Lilli Joy APRN [facility] [place] [address] 11/30/2023 12:50 PM EDT [place] [address] 12/03/2023 12:30 PM EDT Office [place] [address] Hollie Ambriz MD [facility] [place] [address] Scheduled Referrals Name Type Priority Associated Diagnoses Order Schedule Referral to Gastroenterology Outpatient Referral Routine Constipation, unspecified constipation type Ordered: 01/30/2023 documented as of this encounter Visit Diagnoses Diagnosis Constipation, unspecified constipation type documented in this encounter Care Teams Mortgage Loan Coordinator Relationship Specialty Start Date End Date Lorna Bal APRN [address] [place] [address] PCP - General Family Medicine 05/27/18 documented as of this encounter
--- OUTSIDE RECORDS SUMMARY | 2023-11-09 18:12 | XMS_ITS | Encounter Summary ---
Author Organization [facility] [place] [address] Care Team Providers Care Steward Racetrack Name Role Phone Lorna Bal APRN Primary Care Provider [phone] Encounter Details Date Type Department Care Team (Late st Contact Info) Description 04/03/2023 Telephone [place] [phone] Halima García Social History Tobacco Use Types [...] as of this encounter Miscellaneous Notes * Addendum Note - Ronn Tipton MD - 04/03/2023 11:02 AM ESTAddended by: RONN TIPTON on: 04/03/2023 11:02 AM Modules accepted: Orders * Telephone Encounter - Halima García - 04/03/2023 8:56 AM EST Pt's caregiver called very upset, the pt's levels are very high and she was hoping to start the abxy. I explained the issue with the pharmacy and let her know we are working on sending another script to the pharmacy. Caregiver also mentioned the lab orders were never sent to [facility]. I reviewed the lab orders and she mentioned the ESR was missing. Thanks Halima documented in this encounter Plan of Treatment Upcoming Encounters Date Type Department Care Team (Late st Contact Info) Description 11/19/2023 2:30 PM EDT TH Visit (TeleHealth) [place] [address] [facility] [place] [address] 11/30/2023 12:50 PM ED[place] [address] 12/03/2023 12:30 PM EDT Office [place] [address] Hollie Ambriz MD [facility] [place] [address] documented as of this encounter Visit Diagnoses Diagnosis 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 Acute osteomyelitis, other specified site documented in this encounter Care Teams Steward Racetrack Relationship Specialty Start Date End Date Lorna Bal APRN [address] [place] [address] PCP - General Family Medicine 05/27/18 documented as of this encounter
--- OUTSIDE RECORDS SUMMARY | 2023-11-09 18:12 | XMS_ITS | Encounter Summary ---
[place] [address] Care Team Providers Care Geriatric Nurse Assistant Name Role Phone Lorna Bal APRN Primary Care Provider [phone] Encounter Details Date Type Department Care Team (Latest Contact Info) Description 04/16/2023 Travel Social History Tobacco Use Types Packs/Day Years Used Date Smoking Tobacco: Never Smokeless Tobacco: Never Comments:NO SMOKERS IN THE H OME Alcohol Use Standard Drinks/Week Comments No 0 (1 standard drink = 0.6 oz pur e alcohol) [facility] Inpatient Questions Answer Date Recorded [...] (TeleHealth) Infectious Disease at [facility] [place] [phone] Lilli Joy APRN [facility] [place] [address] 11/30/2023 12:50 PM EDT [place] [address] 12/03/2023 12:30 PM EDT Office [place] [address] Hollie Ambriz MD [facility] [place] [address] documented as of this encounter Visit Diagnoses Not on filedocumented in this encounter Care Teams Geriatric Nurse Assistant Relationship Specialty Start Date End Date Lorna Bal APRN [address] [place] [address] PCP - General Family Medicine 05/27/18 documented as of this encounter
--- OUTSIDE RECORDS SUMMARY | 2023-11-09 18:12 | XMS_ITS | Encounter Summary ---
[place] [address] Care Team Providers Care Directional Drill Operator Name Role Phone Lorna Bal APRN Primary Care Provider [phone] [phone] Encounter Details Date Type Department Care Team (Latest Contact Info) Description 03/26/2023 Travel Social History Tobacco Use Types Packs/Day [...] EDT TH Visit (TeleHealth) Infectious Disease [place] [phone] Lilli Joy APRN [facility] [place] [address] 11/30/2023 12:50 PM EDT [place] [address] 12/03/2023 12:30 PM EDT Office [place] [address] Hollie Ambriz MD [facility] [place] [address] documented as of this encounter Visit Diagnoses Not on filedocumented in this encounter Care Teams Directional Drill Operator Relationship Specialty Start Date End Date Lorna Bal APRN [address] [place] [address] PCP - General Family Medicine 05/27/18 documented as of this encounter
--- OUTSIDE RECORDS SUMMARY | 2023-11-09 18:12 | XMS_ITS | Encounter Summary ---
Author Organization [facility] [place] [address] Care Team Providers Care Product Safety Test Engineer Name Role Phone Lorna Bal APRN Primary Care Provider [phone] Encounter Details Date Type Department Care Team (Late st Contact Info) Description 09/26/2022 Telephone Infect[place] [address] Valentina Stanton Social History Tobacco Use Types Packs/Day Years Used Date Smoking Tobacco: Never Smokeless Tobacco: Never Comments:NO SMOKERS IN THE H OME Alcohol Use Standard Drinks/Week Comments No 0 (1 standard drink = 0.6 oz pur e alcohol) [facility] Inpatient Questions Answer Date Recorded Does Anyone [...] encounter Miscellaneous Notes * Telephone Encounter - Valentina Stanton - 09/26/2022 11:27 AM EDT Pt mom called and CT called to make us aware that CT was completed and needs provider Dr. Moya review the scan and determine if pt will need the IR drain? Will call caregiver Fernanda once we know at number [phone]. This was okay per pt Mom. documented in this encounter Plan of Treatment Upcoming Encounters Date Type Department Care Team (Late st Contact Info) Description 11/19/2023 2:30 PM EDT TH Visit (TeleHealth) [place] [phone] Lilli Joy APRN [facility] [id number] 11/30/2023 12:50 PM EDT Appointment [place] [address] 12/03/2023 12:30 PM EDT Office Visit [place] [phone] Hollie Ambriz MD [facility] [place] [address] documented as of this encounter Visit Diagnoses Not on filedocumented in this encounter Care Teams Product Safety Test Engineer Relationship Specialty Start Date End Date Lorna Bal APRN [address] [place] [address] PCP - General Family Medicine 05/27/18 documented as of this encounter
--- OUTSIDE RECORDS SUMMARY | 2023-11-09 18:12 | XMS_ITS | Encounter Summary ---
Author Organization [facility] Address [facility] [place] [address] Care Team Providers Care Net Sorter Name Role Phone Lorna Bal APRN Primary Care Provider [phone] Encounter Details Date Type Department Care Team (Late st Contact Info) Description 09/10/2022 10:00 AM EDT Office Visit [place] [phone] Sergey Keane MD [facility] [place] [address] 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; terminal carman 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; Soft tissue abscess Social History Tobacco Use Types Packs/Day Years Used Date Smoking Tobacco: Never Smokeless Tobacco: Never Comments:NO SMOKERS IN THE H OME Alcohol Use Standard Drinks/Week Comments No 0 (1 standard drink = 0.6 oz pur e alcohol) [facility] Inpatient Questions Answer Date Recorded [...] Sign Reading Time Taken Comments Blood Pressure 139/92 09/10/2022 10:00 AM EDT Pulse 96 09/10/2022 10:00 AM EDT Temperature 36.1 ??C (96.9 ??F) 09/10/2022 10:00 AM E DT Respiratory Rate 16 09/10/2022 10:00 AM EDT Oxygen Saturation 100% 09/10/2022 10:00 AM EDT Inhaled Oxygen Concentration - - Weight 49.2 kg (108 lb 6.4 oz) 09/10/2022 10:00 AM EDT Height 157.5 cm (5' 2.01) 09/10/2022 10:00 AM E DT Body Mass Index 19.82 09/10/2022 10:00 AM EDT documented in this encounter Progress Notes * Sergey Keane MD - 09/10/2022 10:00 AM EDT Images from the original note were not included. DEPARTMENT OF INF[facility]IOUS DISEASE [facility] INFECTIOUS DISEASE CLINIC NOTE PCP: Lorna Bal APRN Chief complaint: Follow up for spinal collections History of Present Illness: 27 year-old female with a PMH of??TBI with spastic quadriplegia, CP, and complex spinal hx including scoliosis, 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 and??prior bilateral Girdlestone??in??2010 admitted to [facility] on 06/24??for evaluation of??increasing redness and tenderness over the midline surgical scar??and failing courses of ABX at OSH. During that admission a??CT of the spine showed two??irregular collections within the posterior ??lumbar region. It appears the more inferior collection was around L3-L4 and extended to encompass a R sided gluteal component that surrounding a dislocated screw. The more superior collection appears to be around T12. She underwent??IR guided drainage with findings of old blood from the superior collection,and purulent material from the inferior collection, drain was placed.??Cultures obtained and finalized with no growth.??In??absence??of??identified??pathogen??and SIRS??she was??monitor off ABX. Then??she developed fever??and hypotension,?repeating lumbar CT showed??loculated collections??and a gluteal abscess. Patient underwent??new??IR drainage,??with minimal drainage, no culture were obtained??and drain kept in place??. During that admission she also developed E coli bacteremia of unclear source. possible proctitis??noted on CT abdomen???.??Decision was made for6 weeks of po levofloxacin,??to??treat the bacteremia, the spinal collections and gluteal abscess. Patient was discharged with close monitoring and ID??follow up. Eventually her drain was removed on 07/08.? Unfortunately??she developed??increased redness and purulent drainage from the same area??she returned to [facility] on 07/22, a repeated CT of the lumbar spine showed multiple spinal and paraspinal collections. Initial plan was to continue treatment with levofloxacin in addition to surgical source control by orthopedics since drains have shown to fail in multiple oportunities. Orthopedic surgery evaluated the patient decision was for another trial of drain placement plus antibiotics. Patient underwent IR drain on 07/24 one drain at L2/3 collection and the other at the sacroiliac site, culture negatives. . The overall consensus from orthopedic surgery end was for a trial of conservative management with drains in an attempt to avoid surgery, unless an indication arises. We therefore elected through shared-decision to continue levofloxacin with weekly laboratory monitoring. During that admission her BCx returned positive for Pseudomonas oryzihabitan . The clinical significance of this positive blood culture was uncertain as this organism does not typically cause clinical infection in immunocompetent hosts. Decision was to treat for another 6 weeks of levofloxacin. After completion of levofloxacin and based on culture data decision was to cover other indolent pathogens such as corynebacterium spp or strep and she was switched to doxycycline, drains remained in place and she was advised to follow up in 4 weeks and referral to orthopedic surgery was provided. In the interim patient was seen at [facility] by infectious diseases for a second opinion. I had an extensive conversation with [facility] provider regarding patient's clinical course at and treatment plan provided by our team. Some superficial cultures were obtained showing staph hemolyticus and capitis. Patient was kept on doxycycline and today presents for follow up. As per caregivers and patients mother, Mrs Cavazos is doing well with current therapy, altough she developed a facial rash after sunlight exposure, but fever, no AMS, drain output remains minimal and she is being followed by IR Review of Systems: Unable to obtain due to clinical status Meds: Current Outpatient Medications on File Prior to Visit Medication Sig Dispense Refill ??? doxycycline (Vibramycin) 100 mg capsule Take 1 capsule by mouth 2 times daily for 90 days. 60 capsule 2 ??? lactobacillus rhamnosus, GG, (CULTURELLE) 10 billion cell Capsule Take 1 capsule by mouth daily. ??? polyethylene glycoL (Miralax) 17 gram oral powder packet Take 17 g by mouth daily. ??? senna (Senokot) 8.6 mg tablet Take 2 tablets by mouth nightly. ??? nystatin (MYCOSTATIN) 100,000 unit/gram Powder Apply 1 each topically 2 times daily. ??? baclofen (Lioresal) 10 mg tablet Take 10 mg by mouth 2 times daily. ??? multivitamin (THERAGRAN) Tablet Take 1 tablet by mouth daily. No current facility-administered medications on file prior to visit. Vital Signs Last value Range last 24 hrs Temperature Temp: 36.1 ??C (96.9 ??F) Temp: -- Heart Rate Heart Rate: 96 Heart Rate: -- Blood Pressure BP: (!) 139/92 BP: -- Respiratory Rate Resp: 16 Resp: -- SpO2 SpO2: 100 % SpO2: -- Physical Exam GENERAL APPEARANCE: ??In no acute distress. VITAL SIGNS: Reviewed HEENT: Oropharynx is clear. Mouth ??no lesions. NECK: No lymphadenopathy or tenderness. LUNGS: Breath sounds are equal and clear bilaterally. No wheezes, rhonchi, or rales. HEART: Regular rate and rhythm with normal S1 and S2. No murmurs ABDOMEN: Soft. No mass, tenderness, guarding, or rebound. No organomegaly or hernia. Bowel sounds are present.?? SPINE: [address], 1 with serous drainage 3 cc. 2 with no output EXTREMITIES: No cyanosis, clubbing, or edema. NEUROLOGIC: Awake, alert,?? SKIN: ??No lesions, nodules or rashes are noted Laboratory Last 3 Lytes Recent Labs 08/11/22 1453 07/31/22 0453 07/28/22 2327 NA 141 138 138 K 4.0 3.9 3.9 CL 105 103 102 CO2 24 24 25 BUN 9 11 7* CREATININE 0.25* 0.29* 0.30* Last 3 LFTs Recent Labs 08/11/22 1453 07/28/22 2327 07/07/22 0341 07/06/22 0621 07/05/22 0531 AST 19 35* 20 25 39* ALT 26 42* 42* 57* 74* ALKPHOS 211* 182* 177* 199* 209* BILITOT <0.2* 0.2 <0.2* 0.3 0.4 BILIDIR -- -- <0.1 0.1 0.1 Last CRP, SEDRATE Recent Labs 08/11/22 1453 07/28/22 0502 07/27/22 0245 CRP 45.8* < > 27.0* SEDRATE -- -- 105* < > = values in this interval not displayed. Last 3 CBC Recent Labs 08/11/22 1453 08/01/22 0547 07/31/22 0453 WBC 6.2 5.3 4.8 Summary: 27 year-old female with a PMH of??TBI with spastic quadriplegia, CP, and complex spinal hx including scoliosis, 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 and??prior bilateral Girdlestone??in??2010 and multiple hospital admission in the past couple months( as detailed above) for management of E coli and Pseudomonas oryzihabitans bacteremia of unclear origin, and culture-negative spinal collections, requiring IR drainage and failed multiple course of IV and PO antibiotic . These collections are most likely secondary to a dislocated screw from her previous spinal surgeries. Patient seen by neurosurgery and orthopedic surgery in multiple occassions, due to the location and high risk complications that entails a surgical approach, a more conservative management with ABX and drains have been proposed, most recent witha course of po Levofloxacin then transitioned to doxycycline to cover most common pathogens associated with this presentations. Overall it is a very complex case due to the limited surgical options that she has to achieve source control, understanding that the culprit for this collections is the dislocated spinal hardware.From Infectious diseases perspective we planning to continue therapy with doxycyline as she has tolerated well and there is no evidence of worsening infection based on symptoms and lab results. Unclear the significance of outside cultures given the sterile technic used to obtain them and this can represent skin zenon and contamination. She should continue to follow up withIR for drain check and spine surgery at [facility] for possible surgical Options. They would like to continue receiving ID care at [facility] at least until surgical options are explored at outside institution. Plan Based on patient clinical presentation, review of data and chart my plan is as follows: -Continue doxycycline 100 mg PO BID -Avoid sunlight exposure while on doxyxycline -Pending evaluation by surgery at [facility], at that point they will decide if they continue care at or will see ID at other institution -Alarm signs were provided, come to the ED, call the office or 911 if initial symptoms return, fever, chills, associated with nausea, vomiting profuse diarrhea, confusion decrease urinary volumes Case discussed with Dr. Jamar Dasilva Follow up: As needed Sergey Doan MD Infectious Disease Fellow [facility] 09/14/2022 Chronic suppression Behaving as infection * Jamar Dasilva MD - 09/10/2022 10:00 AM EDT Attending Addendum: I have seen and examined the patient, reviewed the data and agree with the note by Dr. Jefferson. documented in this encounter Plan of Treatment Upcoming Encounters Date Type Department Care Team (Late st Contact Info) Description 11/19/2023 2:30 PM EDT TH Visit (TeleHealth) [place] [address] Lilli Joy APRN [facility] [place] [address] 11/30/2023 12:50 PM EDT Appointment [place] [address] 12/03/2023 12:30 PM EDT Office Visit [place] [address] Hollie Ambriz MD [facility] [place] [address] documented as of this encounter Visit Diagnoses Diagnosis 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 Acute osteomyelitis, other specified site alf 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 Encounter for long-term (current) use of antibiotics Soft tissue abscess Cellulitis and abscess of other specified site documented in this encounter Care Teams Net Sorter Relationship Specialty Start Date End Date Lorna Bal APRN [address] [place] [address] PCP - General Family Medicine 05/27/18 documented as of this encounter
--- OUTSIDE RECORDS SUMMARY | 2023-11-09 18:12 | XMS_ITS | Encounter Summary ---
Author Organization [facility] [place] [address] Care Team Providers Care Director State Pharmacy Name Role Phone Lorna Bal APRN Primary Care Provider [phone] [phone] Reason for Referral * Diagnostic Test (Routine) - Closed Specialty Diagnoses / Procedures Referred By Contac t Referred To Contact Radiology Diagnoses 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 Procedures CT Lumbar Spine w Contrast George Tipton MD [facility] [place] [address] [facility] [place] [address] Referral ID Status Reason Start Date Expiration Date V isits Requested Visits Authorized [id number] Closed Specialty Service Requested 04/15/2023 10/14/2024 1 1 Encounter Details Date Type Department Care Team (Late st Contact Info) Description 04/15/2023 Notes [place] [address] George Tipton MD [facility] [place] [address] Social History Tobacco Use Types [...] Progress Notes * George Tipton MD - 04/15/2023 10:25 AM EST Patient is a 27-year-old female with history of spastic quadriplegia and scoliosis status post right pelvic plastic closure on 02/11. She was treated with vancomycin and Zosyn. End of therapy 03/25 CRP has been persistently elevated since end of therapy. CRP was 86.3 and its up to 95 today. I called the patient's caregiver and we will order repeat CT lumbar spine with contrast. Previously MRI was not performed secondary to extensive hardware and poor signal quality. documented in this encounter Plan of Treatment Upcoming Encounters Date Type Department Care Team (Late st Contact Info) Description 11/19/2023 2:30 PM EDT TH Visit (TeleHealth) [place] [address] Lilli Joy APRN [facility] [place] [address] 11/30/2023 12:50 PM [place] [address] 12/03/2023 12:30 PM EDT Office [place] [address] Hollie Ambriz MD [facility] [place] [address] documented as of this encounter Results * CT Lumbar Spine w Contrast (04/16/2023 3:45 PM EST) Anatomical Region Laterality Modality L-spine Computed Tomogra phy Impressions 04/17/2023 10:53 AM EST Markedly limited study secondary to metallic artifact. Interval development of complex masslike lesion in the left posterior paraspinous tissues. While the metallic hardware precludes accurate assessment of enhancement, spinal canal involvement, or bone involvement, the rim of the abnormality appears to be of higher attenuation than the center and therefore the lesion most likely represents liquefied hematoma or abscess. Thank you for letting us participate in the care of this patient. ??If you are a health care provider and have any questions regarding this report, please contact the number below. ??For patients who have questions please contact the health palliative care specialist that requested your imaging first. ? Narrative 04/17/2023 10:53 AM EST EXAMINATION: CT LUMBAR SPINE W CONTRAST CLINICAL HISTORY: Low back pain, infection or inflammation suspected (Ped 0-18y) Hx of spastic paraplegia and girldstone in 2010. Revision surgery on 02/11. Completed vancomycin and zosyn on 03/24. CRP remained elevated, rule out abscess TECHNIQUE: CT lumbar spine performed after the intravenous administration of contrast. . Contrast dose 80 cc Omnipaque 350 COMPARISON: CT lumbar spine of 09/26/2022 FINDINGS: Evaluation of the lumbar spine is markedly limited by the presence of metallic hardware producing extensive streak artifact. There is interval alteration of the configuration of the metallic hardware with addition of a right and multiple additional screws. No bone erosion is evident outside the areas of artifact. No displaced fracture is visible. There is a poorly marginated masslike structure in the left posterior paraspinous tissues at the level of the upper sacrum through the level of L3. It measures approximately six cm This lies along the site of a cleft or scar along the skin surface. It appears to have a low-attenuation center and slightly higher attenuation rim. Its deep margins are difficult to identify secondary to the artifact but they appear to extend into the bone surface. This abnormality appears substantially larger than that present at a similar location on the prior study Procedure Note Bobo Keane MD - 04/17/2023 EXAMINATION: CT LUMBAR SPINE W CONTRAST CLINICAL HISTORY: Low back pain, infection or inflammation suspected (Ped0-18y) Hx of spastic paraplegia and girldstone in 2010. Revision surgery on02/11. Completed vancomycin and zosyn on 03/24. CRP remained elevated, rule outabscess TECHNIQUE: CT lumbar spine performed after the intravenous administration ofcontrast. . Contrast dose 80 cc Omnipaque 350 COMPARISON: CT lumbar spine of 09/26/2022 FINDINGS: Evaluation of the lumbar spine is markedly limited by the presence ofmetallic hardware producing extensive streak artifact. There is interval alterationof the configuration of the metallic hardware with addition of a right andmultiple additional screws. No bone erosion is evident outside the areas ofartifact. No displaced fracture is visible. There is a poorly marginated masslikestructure in the left posterior paraspinous tissues at the level of the uppersacrum through the level of L3. It measures approximately six cm This lies alongthe site of a cleft or scar along the skin surface. It appears to have a low-attenuation center and slightly higher attenuation rim. Its deepmargins are difficult to identify secondary to the artifact but they appear to extendinto the bone surface. This abnormality appears substantially larger thanthat present at a similar location on the prior study IMPRESSION Markedly limited study secondary to metallic artifact. Interval development of complex masslike lesion in the left posterior paraspinous tissues. While the metallic hardware precludes accurateassessment of enhancement, spinal canal involvement, or bone involvement, the rim ofthe abnormality appears to be of higher attenuation than the center andtherefore the lesion most likely represents liquefied hematoma or abscess. Thank you for letting us participate in the care of this patient. If youare a health care provider and have any questions regarding this report,please contact the number below. For patients who have questions please contactthe health palliative care specialist that requested your imaging first. Keri Trevino MD IMG CT ORDERABLES documented in this encounter Visit Diagnoses Diagnosis 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- Primary Acute osteomyelitis, other specified site 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 Acute osteomyelitis, other specified site documented in this encounter Care Teams Director State Pharmacy Relationship Specialty Start Date End Date Lorna Bal APRN [address] [place] [address] PCP - General Family Medicine 05/27/18 documented as of this encounter
--- OUTSIDE RECORDS SUMMARY | 2023-11-09 18:12 | XMS_ITS | Encounter Summary ---
Author Organization [facility] Address [facility] [place] [address] Care Team Providers Care Predictive Maintenance Specialist Name Role Phone Lorna Bal APRN Primary Care Provider [phone] Encounter Details Date Type Department Care Team (Late st Contact Info) Description 09/24/2022 Orders Only Radiology at [facility] [place] [address] Hank Nunez PA [facility] [place] [id number] Social History Tobacco Use Types Packs/Day Years Used Date Smoking Tobacco: Never Smokeless Tobacco: Never Comments:NO SMOKERS IN THE H OME Alcohol Use Standard Drinks/Week Comments No 0 (1 standard drink = 0.6 oz pur e alcohol) [facility] Inpatient Questions Answer Date Recorded Does [...] as of this encounter Progress Notes * Hank Nunez PA - 09/24/2022 4:46 PM EDT Interventional Radiology - Progress Note Patient Name: Tana Cavazos : 1995 MR#: [id number] Spoke with Anderson regarding concerns regarding overall plan for Tana. Recommended she attend her appointments in [place] in hope of guiding toward more definitive management of recurrent lumbar infections. If felt that repeat drainage is indicated, recommended repeat cross-sectional imaging to assess for accessible drain targets or previously undrained collections. Ideally this is ordered by areferring service. Spoke briefly to Dr Dasilva via secure chat - he was willing to enter order for CT and for further drain procedures if this plan moves forward. All questions and concerns addressed, and Anderson was thankful for the followup call. Plan or recommendation formulated in discussion with and directed by Interventional Radiology attending physician Salena. documented in this encounter Plan of Treatment Upcoming Encounters Date Type Department Care Team (Late st Contact Info) Description 11/19/2023 2:30 PM EDT TH Visit (TeleHealth) [place] [id number] Lilli Joy APRN [facility] [place] [id number] 11/30/2023 12:50 PM ED[place] [address] 12/03/2023 12:30 PM EDT Office [place] [address] Hollie Ambriz MD [facility] [place] [address] documented as of this encounter Visit Diagnoses Not on filedocumented in this encounter Care Teams Predictive Maintenance Specialist Relationship Specialty Start Date End Date Lorna Bal APRN [address] [place] [address] PCP - General Family Medicine 05/27/18 documented as of this encounter
--- OUTSIDE RECORDS SUMMARY | 2023-11-09 18:12 | XMS_ITS | Encounter Summary ---
Author Organization [facility] [address] Care Team Providers Care Billet Checker Name Role Phone Lorna Bal APRN Primary Care Provider [phone] Reason for Visit * Consultation (Routine) - Authorized Specialty Diagnoses / Procedures Referred By Karlo duarte Referred To Contact Gastroenterology Diagnoses Constipation, unspecified constipation type constipation Lorna Bal APRN [address] [place] [address] [facility] [place] [address] [address] Referral ID Status Reason Start Date Expiration Date Visits Requested Visits Authorized [id number] Authorized Consult, Test & Treat PCP Updated and/or Approved 01/30/2023 01/30/2024 12 12 Encounter Details Date Type Department Care Team (Latest Contact Info) Description 06/08/2023 9:00 AM EST TH Visit (TeleHealth) [place] [address] Samantha Crystal APRN [facility] [place] [address] Constipation, unspecified constipation type Social History Tobacco [...] of this encounter Progress Notes * Samantha Crystal APRN - 06/08/2023 9:00 AM EST Gastroenterology New Patient Telehealth Note Ms. Tana Cavazos is a 27 y.o. female who presents to the section of Gastroenterology for consultation at the request of Dr. Lorna Bal APRN for constipation. HISTORY OF PRESENT ILLNESS This is a pleasant 27 y.o. female with a PMH significant for [...] stomach discomfort. She is being followed in [place] after hospital stay for a spinal infection. [...] abscess. Had E. Coli lastt year. Imaging/Studies: 03/27/2023: US RUQ IMPRESSION 1. Liver is [...] All Drainage Procedures 06/25/2022 Mich Martino MD [facility] INTERVENTIONL RAD IR ALL DRAINAGE PROCEDURES 07/04/2022 IR All Drainage Procedures 07/04/2022 Mich Martino MD [facility] INTERVENTIONL RAD IR ALL DRAINAGE PROCEDURES 07/24/2022 IR All Drainage Procedures 07/24/2022 Anurag Kumar MD [facility] INTERVENTION[facility] RAD IR ALL DRAINAGE PROCEDURES 09/26/2022 IR All Drainage Procedures 09/26/2022 Jamaal Jenkins, DO [facility] INTERVENTIONL RAD IR DRAIN CHECK/CHANGE/REMOVE 07/01/2022 IR Drain Check/Change/Remove 07/01/2022 Jamaal Jenkins, DO [facility] INTERVENTIONL RAD IR DRAIN CHECK/CHANGE/REMOVE 08/11/2022 IR Drain Check/Change/Remove 08/11/2022 Piter Self MD [facility] INTERVENTIONL RAD IR DRAIN CHECK/CHANGE/REMOVE 08/25/2022 IR Drain Check/Change/Remove 08/25/2022 Jamaal Jenkins, DO [facility] INTERVENTIONL RAD IR DRAIN CHECK/CHANGE/REMOVE 09/10/2022 IR Drain Check/Change/Remove 09/10/2022 Mich Martino MD [facility] INTERVENTIONL RAD PRO APPLY OF HIP CASTS, TWO LEGS 08/15/2010 CAST APPLICATION, HIP SPICA, BOTH LEGS performed by BARRERA OLIVER at [facility] MAIN OR PRO I&D, POST SPINE, LUMB/SACR/LUMBOSAC N/A 05/20/2014 @I & D, OPEN, DEEP ABSCESS, LUMBAR, SACRAL, LUMBOSACRAL performed by Freddy Isbell MD at [facility] MAIN OR PRO I&D, POST SPINE, LUMB/SACR/LUMBOSAC N/A 05/26/2014 @I & D, OPEN, DEEP ABSCESS, LUMBAR, SACRAL, LUMBOSACRAL performed by Freddy Isbell MD at [facility] MAIN OR PRO IMPACT TOOTH REMOV COMP BONY N/A 06/14/2018 SURGICAL EXTRACTIONS, REMOVAL OF IMPACTED TOOTH, COMPLETELY BONY (WRVU 1.93) performed by Keith Cotton MD at [facility] OSC PRO OSTEOTOMY FEMUR SHAFT/SUPRACONDY 08/15/2010 ??OSTEOTOMY, FEMUR SHAFT OR SUPRACONDYLAR W/O FIXATION performed by BARRERA OLIVER at [facility] MAIN OR PRO RECONSTRUC HIP SOCKET, RESEC FEM HEAD 08/15/2010 ??ACETABULOPLASTY (GIRDLESTONE), RESECTION FEMORAL HEAD, BILATERAL performed by BARRERA OLIVER [facility] MAIN OR PRO REMOVAL DEEP IMPLANT 08/15/2010 REMOVAL IMPLANT, DEEP, BRUNO performed by BARRERA OLIVER at [facility] MAIN OR PRO REMOVAL ERUPTED TOOTH WITH ELEVATION OF MUCOPERIOSTEAL FLAP N/A 06/14/2018 SURGICAL EXTRACTIONS REQUIRING ELEVATION OF MUCOPERIOSTEAL FLAP AND REMOVAL OF BONE OR SECTION OF TOOTH (WRVU 1.09) performed by Keith Cotton MD at [facility] OSC PRO REMOVE INFUSN DEVICE/PUMP N/A 05/11/2014 REMOVAL OF SPINE INFUSION PUMP performed by Jamaal Samuel MD at [facility] MAIN OR PRO REMOVE SPINAL CANAL CATHETER N/A 05/11/2014 REMOVAL OF INTRATHECAL OR EPIDURAL CATHETER performed by Jamaal Samuel MD at [facility] MAIN OR PRO REPR, DURAL/CSF LEAK, NOT REQ LAMINECTOMY N/A 05/20/2014 @REPAIR DURAL\CSF LEAK,NOT REQUIRING LAMINECTOMY performed by Freddy Isbell MD at [facility] MAIN OR MEDICATIONS: Current Outpatient Medications Medication Sig Dispense Refill sulfamethoxazole-trimethoprim DS (Bactrim DS) 800-160 mg tablet Take 1 tablet by mouth 2 times daily for 120 days. 60 tablet 3 ergocalciferoL, vitamin D2, (vitamin D2) 50,000 unit [...] [Transparent Dressings] Itching and Dermatitis Please use [id number] Cyclobenzaprine Other Reaction(s): Not available Penicillins SOCIAL HISTORY: Social History Social History [...] found. Wt Readings from Last 3 Encounters: 03/26/23 56.2 kg (124 lb) 09/26/22 49.4 kg (108 lb 12.8 oz) 09/10/22 49.2 kg (108 lb 6.4 oz) There is no height or weight on file to calculate BMI. No physical exam was completed as this visit was done via Telehealth ADDITIONAL TESTING: Reviewed available labs, imaging and endoscopy results in EDH/CIS as well as Scan Docs tab. IMPRESSION: Ms. Tana Cavazos is a 27 y.o. female who presents for chronic constipation. At this time we reviewed her history, symptoms, prior trials, and prior testing. She had some evidence of anemia on prior test so I would like to update some more recent labs. Theyare requesting these to go to [facility] ([facility] hosp[facility]). They are aware that they will need to let me know when they have been completed. I would also like to update a colonoscopy at this time given her chronic constipation and history of anemia. CT also showed proctitis. The situation is somewhat complex and that the legal guardian penelope Johnson and can be challenging to get in touch with. However Fannie is currently in the process of obtaining legal guardianship with the court but this paperwork has not been finalized. I will plan to reach out to mom to notify her of our plans and work on obtaining consent for colonoscopy. From a treatment standpoint her current constipation plan seems to be working fair. However she does require bisacodyl suppositories as rescue agent every 3 days if she has not moved her bowels. I did discuss that they could consider using a glycerin suppository daily to help with management of herbowels from below and continuing to work with the Metamucil, MiraLAX and senna that she is taking. We did discuss prescription grade medications like Linzess, but we will hold on those treatments until her colonoscopy has been completed. We will plan to follow-up 2 weeks after the colonoscopy has been completed. Addendum: 06/15/23: left second voicemail- for Mom requesting consent to order colonoscopy. Called [phone]. Awaiting call back for consent for colonoscopy. Ordered colonoscopy at this time and will await consent confirmation with mom prior to procedure. Total time spent on encounter today: Time spent reviewing records prior to this encounter: 10 minutes Time spent during encounter with patient including counselin minutes Time spent documenting encounter after office visit: 5 minutes Samantha Crystal, MSN, MOLDER MACHINE TENDER, HAT BLOCK BENCH HAND-C Section of Gastroenterology [place] [address] documented in this encounter Plan of Treatment Upcoming Encounters Date Type Department Care Team (Late st Contact Info) Description 11/19/2023 2:30 PM EDT TH Visit (TeleHealth) [place] [address] [address]N [facility] [address] 11/30/2023 12:50 PM EDT [place] [address] 12/03/2023 12:30 PM EDT Office [place] [address] Hollie Ambriz MD [facility] [place] [address] Scheduled Orders Name Type Priority Associated Diagnoses Orde r Schedule CBC (with Diff) Lab Routine Constipation, unspecified constipation type Expected: 06/15/2023, Expires: 09/13/2023 IgA Lab Routine Constipation, unspecified constipation type Expected: 06/15/2023, Expires: 09/13/2023 IgG Lab Routine Constipation, unspecified constipation type Expected: 06/15/2023, Expires: 09/13/2023 Tissue transglutaminase, IgA Lab Routine Constipation, unspecified constipation type Expected: 06/15/2023, Expires: 09/13/2023 Comprehensive metabolic panel (non-fasting) Lab Routine Constipation, unspecified constipation type Expected: 06/15/2023, Expires: 09/13/2023 Ferritin Lab Routine Constipation, unspecified constipation type Expected: 06/15/2023, Expires: 09/13/2023 Iron and TIBC Lab Routine Constipation, unspecified constipation type Expected: 06/29/2023 (Approximate), Expires: 12/29/2023 TSH Lab Routine Constipation, unspecified constipation type Expected: 06/15/2023 (Approximate), Expires: 12/15/2023 ENDOSCOPY CASE REQUEST: COLONOSCOPY, DIAGNOSTIC (WRVU 3.26) Procedures Routine Constipation, unspecified constipation type Ordered: 06/15/2023 documented as of this encounter Visit Diagnoses Diagnosis Constipation, unspecified constipation type documented in this encounter Care Teams Billet Checker Relationship Specialty Start Date End Date Lorna Bal APRN [address] [place] [address] PCP - General Family Medicine 05/27/18 documented as of this encounter
--- OUTSIDE RECORDS SUMMARY | 2023-11-09 18:12 | XMS_ITS | Encounter Summary ---
Author Organization [facility] [place] [address] Care Team Providers Care Audiometrist Name Role Phone Lorna Bal APRN Primary Care Provider [phone] Reason for Referral * Consultation (Routine) - Authorized Specialty Diagnoses / Procedures Referred By Contac t Referred To Contact Wound Care Diagnoses Osteomyelitis, unspecified site, unspecified type Spinal cord abscess Lorna Bal APRN [address] [place] [address] [facility] [place] [address] Referral ID Status Reason Start Date Expiration Date Visits Requested Visits Authorized [id number] Authorized Consult, Test & Treat PCP Updated and/or Approved 12/26/2022 12/26/2023 12 12 Encounter Details Date Type Department Care Team (Latest Contact Info) Description 12/26/2022 Transcribe Orders eDH Incoming Referrals [phone] Lorna Bal APRN [address] [place] [address] Osteomyelitis, unspecified site, unspecified type; Spinal cord abscess Social History Tobacco Use Types Packs/Day [...] EDT TH Visit (TeleHealth) [place] [address] Lilli Joy APRN [facility] [place] [address] 11/30/2023 12:50 PM [place] [address] 12/03/2023 12:30 PM EDT Office [place] [address] Hollie Ambriz MD [facility] [place] [address] Scheduled Referrals Name Type Priority Associated Diagnoses Orde r Schedule Referral to Plastic Surgery Outpatient Referral Routine Osteomyelitis, unspecified site, unspecified type Spinal cord abscess Ordered: 12/26/2022 documented as of this encounter Visit Diagnoses Diagnosis Osteomyelitis, unspecified site, unspecified type Spinal cord abscess Acute osteomyelitis, other specified site documented in this encounter Care Teams Audiometrist Relationship Specialty Start Date End Date Lorna Bal APRN [address] [place] [address] PCP - General Family Medicine 05/27/18 documented as of this encounter
--- OUTSIDE RECORDS SUMMARY | 2023-11-09 18:12 | XMS_ITS | Encounter Summary ---
Author Organization [facility] [place] [address] Care Team Providers Care Creel Cleaner Name Role Phone Lorna Bal APRN Primary Care Provider [phone] Reason for Referral * Diagnostic Test (Routine) - Closed Specialty Diagnoses / Procedures Referred By Contac t Referred To Contact Radiology Diagnoses 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 Procedures IR All Drainage Procedures IR All Biopsy Procedures Jamar Dasilva MD [facility] [place] [address] [place] [address] Referral ID Status Reason Start Date Expiration Date V isits Requested Visits Authorized [id number] Closed Specialty Service Requested 09/26/2022 03/28/2024 1 1 Encounter Details Date Type Department Care Team (Late st Contact Info) Description 09/26/2022 Orders [place] [address] Jamar Dasilva MD [facility] [place] [address] 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 Social History Tobacco Use Types Packs/Day [...] EDT TH Visit (TeleHealth) [place] [address] Lilli Joy [place] [address] 11/30/2023 12:50 PM EDT [place] [address] 12/03/2023 12:30 PM EDT Office [place] [address] Hollie Ambriz MD [facility] [place] [address] documented as of this encounter Results * IR All Drainage Procedures (09/26/2022 1:33 PM EDT) Anatomical Region Laterality Modality X-Ray Angiograph y Narrative 09/26/2022 1:46 PM EDT INTERVENTIONAL RADIOLOGY PROCEDURE NOTE Procedure: Aspiration of two right gluteal collections Indication for Procedure: Paralumbar fluid collections, back pain Informed Consent: After discussing risks (including infection, trauma / damage to surrounding structures, hemorrhage, non-success, amongst others), and benefits of the procedure, the patient;s healthcare proxy consented to the procedure. Monitoring and Sedation Details: Due to the painful nature of the procedure, patient received split doses of intravenous versed from the IR nurse while pulse, pressure,??end tidal CO2 parameters and oxygen saturation were continuously monitored. Procedure Events and Technique: A standard time-out was conducted just before the start of the procedure to verify all foster aspects; including the correct patient and planned procedure, procedure location, informed consent, and all relevant critical information, all of which were correct. The patient was positioned left lateral decubitus on the procedure table. ?? The right gluteal was cleaned and prepped in typical sterile fashion; maximal sterile barrier technique was used throughout. ?? The procedure was performed under sonographic guidance. ??The more inferior collection was identified with sonography and images were stored. ??Local anesthesia was obtained with 1% lidocaine injected subcutaneously via a 25-gauge needle. ??Under realtime sonographic guidance an 18-gauge needle was advanced into the collection. The collection was aspirated. The needle was removed. Repeat sonographic image was obtained. ?? The procedure was repeated with the more superior collection. Medications: Versed 1 mg IV, 1% Lidocaine <10 cc subcutaneous. Contrast: None. Fluoroscopic Time: None. Estimated Blood Loss: < 5 cc. Complications: ??No immediate. Findings: ? ? Dual collections involving the right gluteal screws / tissues. ? ? Aspiration of both collections. ??Approximately 5 cc of blood tinged, opaque fluid aspirated from both collections. ??Samples sent for requested laboratory examinations. ? ? Final sonographic images showed no residual collections. Impression: Successful aspiration of dual gluteal collections. Resident/Fellow: None. Attending: Dr. Jamaal Jenkins. I, Dr. Jenkins, was present throughout the procedure. Jamar Dasilva MD IMG IR ORDERABLES * AFB culture Back (09/26/2022 12:49 PM EDT) Acid Fast Bacilli Culture No Acid Fast Bacilli isolated [facility] Acid Fast Stain No Acid Fast Bacilli seen [facility] Back 09/26/2022 12:4 9 PM EDT 09/26/2022 2:05 PM EDT Narrative Resulting Agency Comment Spec In Lab Jamar Dasilva MD MICROBIOLOGY - NERFL ORDERABLES [facility] [place] [address] documented in this encounter Visit Diagnoses Diagnosis 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 Acute osteomyelitis, other specified site 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 Acute osteomyelitis, other specified site documented in this encounter Care Teams Creel Cleaner Relationship Specialty Start Date End Date Lorna Bal APRN [address] [place] [address] PCP - General Family Medicine 05/27/18 documented as of this encounter
--- OUTSIDE RECORDS SUMMARY | 2023-11-09 18:12 | XMS_ITS | Encounter Summary ---
Author Organization [facility] Address [facility] [place] [address] Care Team Providers Care Metal Cut Off Saw Tender Name Role Phone Lorna Bal APRN Primary Care Provider [phone] Encounter Details Date Type Department Care Team (Late st Contact Info) Description 04/29/2023 Notes [place] [phone] George Tipton MD [facility] CRITICAL [place] [address] Social History Tobacco Use Types Packs/Day Years [...] Progress Notes * George Tipton MD - 04/29/2023 3:37 PM EST Patient had a persistently elevated CRP after completion of IV therapy. CT lumbar spine from 04/[address] Augustin(Neurosurgeon, [facility]) and talked to medical support assistant. According to her the surgeon reviewed the images and at this time no interventions are planned. Theyrecommend suppressive antibiotics and she is scheduled for an appointment in May but they willtry to arrange for an appointment sooner within the next 1 to 2 weeks and evaluate. documented in this encounter Plan of Treatment Upcoming Encounters Date Type Department Care Team (Late st Contact Info) Description 11/19/2023 2:30 PM EDT TH Visit (TeleHealth) [place] [address] Lilli Joy [place] [address] 11/30/2023 12:50 PM ED[place] [address] 12/03/2023 12:30 PM EDT Office [place] [address] Hollie Ambriz MD [facility] [place] [address] documented as of this encounter Visit Diagnoses Not on filedocumented in this encounter Care Teams Metal Cut Off Saw Tender Relationship Specialty Start Date End Date Lorna Bal APRN [address] [place] [address] PCP - General Family Medicine 05/27/18 documented as of this encounter
--- OUTSIDE RECORDS SUMMARY | 2023-11-09 18:12 | XMS_ITS | Encounter Summary ---
Author Organization [facility] Address [facility] [place] [address] Care Team Providers Care Typewriter Repairer Name Role Phone Lorna Bal APRN Primary Care Provider [phone] [phone] Encounter Details Date Type Department Care Team (Late st Contact Info) Description 01/29/2023 1:00 PM EDT Office [place] [phone] Reji Macdonald MD [facility] [place] [address] 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 Social History Tobacco Use Types [...] as of this encounter Progress Notes * Ruma Jimenez Ofelia - 01/29/2023 1:00 PM EDT Comprehensive Wound Clinic: Plastic Surgery Consultation Note Provider: Reji Macdonald MD. PCP: Lorna Bal APRN CC: spinal cord abyss HPI: Tana Cavazos is a 27 y.o. female here in consultation for management of her postoperative care for planned operation and [place]. She is here with her caregivers but her mother is her legal guardian. She has been seen at [facility] been seen by the orthopedic team and infectious diseases for extended periods of time. It is unclear as to what the long-term plan was for management of thisbut eventually apparently she made it to [place] after referral by infectious disease and then subsequently was referred to [place]. At that point time she was seen by a spine surgeon and then had planned removal of hardware and then this was to be coordinated with plastic surgery. The referral to hear from her primary care was to have us manage her postoperatively given the distance of the surgeon to her home. I attempted to call her mother but the phone went to voicemail on each occasion that I called today. 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 M46.20 Abscess L02.91 Past Surgical History: Procedure Laterality Date BACK SURGERY scoliosis repair HIP OSTEOTOMY bilateral IR ALL DRAINAGE PROCEDURES 06/25/2022 IR All Drainage Procedures 06/25/2022 Mich Martino MD [facility] INTERVENTIONL RAD IR ALL DRAINAGE PROCEDURES 07/04/2022 IR All Drainage Procedures 07/04/2022 Mich Martino MD [facility] INTERVENTIONL RAD IR ALL DRAINAGE PROCEDURES 07/24/2022 IR All Drainage Procedures 07/24/2022 Anurag Kumar MD [facility] INTERVENTIONL RAD IR ALL DRAINAGE PROCEDURES 09/26/2022 IR All Drainage Procedures 09/26/2022 Jamaal Jenkins, DO [facility] INTERVENTIONL RAD IR DRAIN CHECK/CHANGE/REMOVE 07/01/2022 IR Drain Check/Change/Remove 07/01/2022 Jamaal Jenkins, DO [facility] INTERVENTIONL RAD IR DRAIN CHECK/CHANGE/REMOVE 08/11/2022 IR Drain Check/Change/Remove 08/11/2022 Piter Self MD [facility] INTERVENTIONL RAD IR DRAIN CHECK/CHANGE/REMOVE 08/25/2022 IR Drain Check/Change/Remove 08/25/2022 Jamaal Jenkins, DO [facility] INTERVENTIONL RAD IR DRAIN CHECK/CHANGE/REMOVE 09/10/2022 IR Drain Check/Change/Remove 09/10/2022 Mich Martino MD [facility] INTERVENTIONL RAD PRO APPLY OF HIP CASTS, TWO LEGS 08/15/2010 CAST APPLICATION, HIP SPICA, BOTH LEGS performed by BARRERA OLIVER at [facility] MAIN OR PRO I&D, POST SPINE, LUMB/SACR/LUMBOSAC N/A 05/20/2014 @I & D, OPEN, DEEP ABSCESS, LUMBAR, SACRAL, LUMBOSACRAL performed by Freddy Isbell MD at [facility] MAIN OR PRO I&D, POST SPINE, LUMB/SACR/LUMBOSAC N/A 05/26/2014 @I & D, OPEN, DEEP ABSCESS, LUMBAR, SACRAL, LUMBOSACRAL performed by Freddy Isbell MD at [facility] MAIN OR PRO IMPACT TOOTH REMOV COMP BONY N/A 06/14/2018 SURGICAL EXTRACTIONS, REMOVAL OF IMPACTED TOOTH, COMPLETELY BONY (WRVU 1.93) performed by Keith Cotton MD at [facility] OSC PRO OSTEOTOMY FEMUR SHAFT/SUPRACONDY 08/15/2010 ??OSTEOTOMY, FEMUR SHAFT OR SUPRACONDYLAR W/O FIXATION performed by BARRERA OLIVER at [facility] MAIN OR PRO RECONSTRUC HIP SOCKET, RESEC FEM HEAD 08/15/2010 ??ACETABULOPLASTY (GIRDLESTONE), RESECTION FEMORAL HEAD, BILATERAL performed by BARRERA OLIVER [facility] MAIN OR PRO REMOVAL DEEP IMPLANT 08/15/2010 REMOVAL IMPLANT, DEEP, BRUNO performed by BARRERA OLIVER at [facility] MAIN OR PRO REMOVAL ERUPTED TOOTH WITH ELEVATION OF MUCOPERIOSTEAL FLAP N/A 06/14/2018 SURGICAL EXTRACTIONS REQUIRING ELEVATION OF MUCOPERIOSTEAL FLAP AND REMOVAL OF BONE OR SECTION OF TOOTH (WRVU 1.09) performed by Keith Cotton MD at [facility] OSC PRO REMOVE INFUSN DEVICE/PUMP N/A 05/11/2014 REMOVAL OF SPINE INFUSION PUMP performed by Jamaal Samuel MD at [facility] MAIN OR PRO REMOVE SPINAL CANAL CATHETER N/A 05/11/2014 REMOVAL OF INTRATHECAL OR EPIDURAL CATHETER performed by Jamaal Samuel MD at [facility] MAIN OR PRO REPR, DURAL/CSF LEAK, NOT REQ LAMINECTOMY N/A 05/20/2014 @REPAIR DURAL\CSF LEAK,NOT REQUIRING LAMINECTOMY performed by Freddy Isbell MD at [facility] MAIN OR Social History Socioeconomic History Marital status: Single Spouse name: Not on file Number of children: Not on file Years of education: Not on file Highest education level: Not on file Occupational History Not on file Tobacco Use Smoking status: Never Smokeless tobacco: Never Tobacco comments: NO SMOKERS IN THE HOME Vaping Use Vaping Use: Never used Substance and Sexual Activity Alcohol use: No Drug use: No Sexual activity: Not on file Other Topics Concern Not on file Social History Narrative Not on file Social Determinants of Health Financial Resource Strain: Not on file Food Insecurity: Not on file Transportation Needs: Not on file Physical Activity: Not on file Housing Stability: Not on file Allergies Allergen Reactions Fluoxetine Other (See Comments) HIVES, HEART RACES Tegaderm [Transparent Dressings] Itching and Dermatitis Please use [id number] Cyclobenzaprine Other Reaction(s): Not available Penicillins Current Outpatient Medications on File Prior to Visit Medication Sig Dispense Refill lactobacillus rhamnosus, GG, (CULTURELLE) 10 billion cell [...] facility-administered medications on file prior to visit. Examination: There were no vitals taken for this visit. Constitutional: No acute distress She is resting comfortably. In the center of her back there is a puncta. There is minimal erythema at this puncta. She has a long midline incision. There is no obvious drainage. She is nonverbal She has no acute distress. Impression: Tana Cavazos 27 y.o. 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 I was able to reach out and contact her PCP Sonya Bal. The referral was made to me to assume her postoperative care after a complex orthopedic and plastic surgery operation. I explained to the caregivers today that I would not find that to be an appropriate way to provideher care. I think if she is going to have a complex surgical intervention that that follow-up care should be arranged through the surgeons that are providing her with that care. They did express somefrustration with this and they had the expectation that I would assume her postoperative care. I have not had any direct communication with the surgeons nor have they reached out to the orthopedic team here that I am aware of. I think it would be very peculiar to perform a complex intervention and then discharged the patient to have follow-up elsewhere. I advised her primary care on the telephonetoday after not being able to reach her mother that they could certainly reach out to the orthopedic team here as well as the infectious disease team here to assess whether or not this is an appropriate plan. Otherwise I think her best course of care is to have all of her care associated with a surgical intervention managed by the surgeon that is doing this. Plan: 1.if she is planning to proceed with a surgical intervention she should have her follow-up care with the surgeon performing her operation. I, Ruma Jimenez, have performed the documentation for this encounter in the presence of and actingas a scribe for REJI MACDONALD MD. I performed the services which were documented by the scribe, and I agree with the accuracy of the documentation in this encounter. REJI MACDONALD MD documented in this encounter Plan of Treatment Upcoming Encounters Date Type Department Care Team (Late st Contact Info) Description 11/19/2023 2:30 PM EDT TH Visit (TeleHealth) [place] [address] Lilli Joy APRN [facility] [place] [address] 11/30/2023 12:50 PM EDT Appointment [place] [address] 12/03/2023 12:30 PM EDT Office Visit [place] [address] Hollie Ambriz MD [facility] [place] [address] documented as of this encounter Visit Diagnoses Diagnosis 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 Acute osteomyelitis, other specified site documented in this encounter Care Teams Typewriter Repairer Relationship Specialty Start Date End Date Lorna Bal APRN [address] [place] [address] PCP - General Family Medicine 05/27/18 documented as of this encounter
--- OUTSIDE RECORDS SUMMARY | 2023-11-09 18:12 | XMS_ITS | Encounter Summary ---
Author Organization [facility] [place] [address] Care Team Providers Care Grinder Set Up Operator Surface Name Role Phone Lorna Bal APRN Primary Care Provider [phone] Reason for Referral * Diagnostic Test (Routine) - Closed Specialty Diagnoses / Procedures Referred By Contac t Referred To Contact Radiology Diagnoses 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 Procedures CT Lumbar Spine w Contrast Jamar Dasilva MD [facility] [place] [address] [facility] [place] [address] Referral ID Status Reason Start Date Expiration Date V isits Requested Visits Authorized [id number] Closed Specialty Service Requested 09/25/2022 03/27/2024 1 1 Reason for Visit * Diagnostic Test (Routine) - Closed Specialty Diagnoses / Procedures Referred By Contac t Referred To Contact Radiology Diagnoses 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 Procedures CT Lumbar Spine w Contrast Jamar Dasilva MD [facility] [place] [address] [facility] [place] [address] Referral ID Status Reason Start Date Expiration Date V isits Requested Visits Authorized [id number] Closed Specialty Service Requested 09/25/2022 03/27/2024 1 1 Encounter Details Date Type Department Care Team (Latest Contact Info) Description 09/26/2022 10:24 AM EDT - 09/26/2022 12:12 PM EDT Hospital [place] [address] Jamar Dasilva MD [facility] [place] [address] 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 Discharge Disposition: Home Social History Tobacco Use [...] 10 mg by mouth 3 times daily. sulfamethoxazole-trime thoprim DS (Bactrim DS) 800-160 mg tablet Take 1 tablet by mouth 2 times daily for 30 days. 60 tablet 3 09/25/2022 10/25/2022 doxycycline (Vibramycin) 100 mg capsule Take 1 capsule by mouth 2 times daily for 90 days. 60 capsule 2 08/13/2022 11/11/2022 nystatin (MYCOSTATIN) 100,000 unit/gram Powder Apply 1 each topically 2 times daily. 06/02/2022 10/29/2023 documented as of this encounter Plan of Treatment Upcoming Encounters Date Type Department Care Team (Late st Contact Info) Description 11/19/2023 2:30 PM EDT TH Visit (TeleHealth) [place] [address] Lilli Joy APRN [facility] [address] [place], [place] [address] 11/30/2023 12:50 PM EDT [place]oint[place] [address] 12/03/2023 12:30 PM EDT Office [place] [address] Hollie Ambriz MD [facility] [place] [address] documented as of this encounter Procedures Procedure Name Priority Date/Time Associated Diagnosis Comments CT LUMBAR SPINE WITH CONTRAST Routine 09/26/2022 10:42 AM EDT 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 documented in this encounter Results * CT Lumbar Spine w Contrast (09/26/2022 10:42 AM EDT) Anatomical Region Laterality Modality L-spine Computed Tomogra phy Impressions 09/26/2022 10:59 AM EDT Prior spinal fixation for scoliosis. No pathologic demineralization is noted related to infection or hardware loosening. Thank you for letting us participate in the care of this patient. ??If you are a health care provider and have any questions regarding this report, please contact the number below. ??For patients who have questions please contact the health healthcare customer service that requested your imaging first. ? Electronically signed by: Pantera Salazar MD, [facility] ([phone]), at 09/26/2022 10:59 AM Narrative 09/26/2022 10:59 AM EDT EXAMINATION: CT LUMBAR SPINE W CONTRAST CLINICAL HISTORY: Low back pain, infection or inflammation suspected (Ped 0-18y) TECHNIQUE: CT lumbar spine performed after the intravenous administration of contrast. Administered 70.0 ml of OMNIPAQUE 350.00 mg/ml. COMPARISON: There is CT of the lumbar spine 08/13/2022 FINDINGS: Scanogram views demonstrate severe scoliotic curvature of the thoracolumbar spine convex to the right. Extensive spinal fixation is performed throughout the thoracic lumbar and sacral region with bilateral rods and multiple pedicle screws. Soft tissue images shows severe constipation. Hardware is identified as described off of the scanogram. Evaluation of meredith and screws shows them to be satisfactorily placed. No loosening is identified. No fractures are seen. No aggressive bone lesions are evident. Procedure Note Pantera Salazar MD - 09/26/2022 EXAMINATION: CT LUMBAR SPINE W CONTRAST CLINICAL HISTORY: Low back pain, infection or inflammation suspected (Ped0-18y) TECHNIQUE: CT lumbar spine performed after the intravenous administration ofcontrast. Administered 70.0 ml of OMNIPAQUE 350.00 mg/ml. COMPARISON: There is CT of the lumbar spine 08/13/2022 FINDINGS: Scanogram views demonstrate severe scoliotic curvature of thethoracolumbar spine convex to the right. Extensive spinal fixation is performedthroughout the thoracic lumbar and sacral region with bilateral rods and multiplepedicle screws. Soft tissue images shows severe constipation. Hardware is identified as described off of the scanogram. Evaluation of meredith and screws shows them tana satisfactorily placed. No loosening is identified. No fractures are seen.No aggressive bone lesions are evident. IMPRESSION Prior spinal fixation for scoliosis. No pathologic demineralization isnoted related to infection or hardware loosening. Thank you for letting us participate in the care of this patient. If youare a health care provider and have any questions regarding this report,please contact the number below. For patients who have questions please contactthe health healthcare customer service that requested your imaging first. Jamar Dasilva MD IMG CT ORDERABLES documented in this encounter Visit Diagnoses Diagnosis 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 Acute osteomyelitis, other specified site documented in this encounter Administered Medications Inactive Administered Medications - up to 3 most recent administrations Medication Order MAR Action Action Date Dose Rate Site iohexoL (Omnipaque) (350 mg/mL) solution 0-200 mL 0-200 mL, Intravenous, ONCE PRN, 1 dose, Starting on Thu09/26/22 at 1042, Until Thu09/26/22 at 1045, Per Protocol, Warning Vesicant/Irritant Medication , Radiology Contrast, Routine Given 09/26/2022 10:45 AM EDT 70 mLs documented in this encounter Care Teams Grinder Set Up Operator Surface Relationship Specialty Start Date End Date Lorna Bal, DOORS PREFITTER [address] [place] [address] PCP - General Family Medicine 05/27/18 documented as of this encounter
--- OUTSIDE RECORDS SUMMARY | 2023-11-09 18:12 | XMS_ITS | Encounter Summary ---
[place] [address] Care Team Providers Care Microfilm Operator Name Role Phone Lorna Bal APRN Primary Care Provider +1 -[phone] Reason for Referral * Consultation (Urgent) - Authorized Specialty Diagnoses / Procedures Referred By Contac t Referred To Contact Infectious Diseases Diagnoses Osteomyelitis, unspecified site, unspecified type Spinal cord abscess Lorna Bal APRN [address] [place] [address] [facility] Infectious Dis [address] [place] [phone] Referral ID Status Reason Start Date Expiration Date Visits Requested Visits Authorized [id number] Authorized Consult, Test & Treat PCP Updated and/or Approved 12/23/2022 12/23/2023 6 6 Encounter Details Date Type Department Care Team (Latest Contact Info) Description 12/23/2022 Transcribe Orders eDH Incoming Referrals [phone] Lorna Bal APRN [address] [place] [address] Osteomyelitis, unspecified site, unspecified type; [...] EDT TH Visit (TeleHealth) [place] [address] Lilli Joy APRN [facility] [place] [address] 11/30/2023 12:50 PM EDT [place] [address] 12/03/2023 12:30 PM EDT Office [place] [address] Hollie Ambriz MD [facility] [place] [address] Scheduled Referrals Name Type Priority Associated Diagnoses Order Schedule Referral to Infectious Disease and [facility] Outpatient Referral Urgent Osteomyelitis, unspecified site, unspecified type Spinal cord abscess Ordered: 12/23/2022 documented as of this encounter Visit Diagnoses Diagnosis Osteomyelitis, unspecified site, unspecified type Spinal cord abscess Acute osteomyelitis, other specified site documented in this encounter Care Teams Microfilm Operator Relationship Specialty Start Date End Date Lorna Bal, [place] [address] [place] [address] PCP - General Family Medicine 05/27/18 documented as of this encounter
--- OUTSIDE RECORDS SUMMARY | 2023-11-09 18:12 | XMS_ITS | Encounter Summary ---
Author Organization [facility] [place] [address] Care Team Providers Care Woodworker Helper Name Role Phone Lorna Bal APRN Primary Care Provider +1 [phone] Encounter Details Date Type Department Care Team (Latest Contact Info) Description 03/27/2023 2:54 PM EST - 03/27/2023 11:59 PM EST Hospital En[place] [address] [place] [address] 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 Discharge Disposition: Home Social History Tobacco Use Types Packs/Day Years Used Date Smoking Tobacco: Never Smokeless Tobacco: Never Comments:NO SMOKERS IN THE H OME Alcohol Use Standard Drinks/Week Comments No 0 (1 standard drink = 0.6 oz pur e alcohol) [facility] Inpatient Questions Answer Date [...] daily for 120 days. 60 tablet 3 03/29/2023 07/27/2023 cefTRIAXone (Rocephin) 2 gram/50 mL Piggyback Inject 2 g into the vein every 24 hours. 02/23/2023 06/08/2023 DAPTOmycin (Cubicin) 350 mg injection solution Inject 4 mg/kg/dose into the vein Daily. 06/08/2023 sodium chloride 0.9 %, flush, (BD PosiFlush Normal Saline 0.9) Syringe Inject 10 mLs into the vein Twice daily. 02/23/2023 06/08/2023 nystatin (MYCOSTATIN) 100,000 unit/gram Powder Apply 1 each topically 2 times daily. 06/02/2022 10/29/2023 documented as of this encounter Plan of Treatment Upcoming Encounters Date Type Department Care Team (Late st Contact Info) Description 11/19/2023 2:30 PM EDT TH Visit (TeleHealth) [place] [address] Lilli Joy [place]N [facility] [place] [address] 11/30/2023 12:50 PM EDT Appointment Radiology at [facility] [place] [address] 12/03/2023 12:30 PM EDT Office [place] [address] Hollie Ambriz MD [facility] [place] [address] documented as of this encounter Procedures Procedure Name Priority Date/Time Associated Diagnosis Comments US ABDOMEN LIMITED HEPATOLOGY PROTOCOL Routine 03/27/2023 3:24 PM EST 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 documented in this encounter Results * US Abdomen Limited Hepatology Protocol (03/27/2023 [...] PM Electronically signed by: Curt Dozier MD, [facility] ([phone]), at 03/27/2023 3:31 PM Thank you for letting us participate in the care of this patient. If you are a health care provider and have any questions regarding this report, please contact the number above. For patients who have questions, please contact the health patient care that requested your imaging first. ? Curt Dozier, Staff Physician Electronically Signed Final Report ?? 03/27/2023 03:36 pm Narrative 03/27/2023 3:37 PM EST Abdominal ? (Signed Final 03/27/2023 03:36 pm) PATIENT INFO: ID #: ? [id number] ?: ??[birth year] (27 yrs)(F) Name: ? TANA SHELTON ?Visit Date: 03/27/2023 03:21 pm PERFORMED BY: Attending: ?Jacoby GONZALES MD, Curt Langston Performed By: ? Shelby Gardner RDMS Referred By: ?GABO BANDA Location: ? [place] SERVICE(S) PROVIDED: [facility] - Hepatology Protocol - Abdominal ?31290 Limited Survey Single Organ or Quadrant - [id number] INDICATIONS: Transaminitis ------ LIVER: ------ Right Lobe [...] 03/27/2023 03:36 pm) PATIENT INFO: ID #: [id number] : [birth year] (27 yrs)(F) Name: TANA SHELTON Visit Date: 03/27/2023 03:21 pm PERFORMED BY: Attending: Jacoyb GONZALES MD, Arthur L. Performed By: Shelby Gardner RDMS Referred By: GABO BANDA Location: [place] SERVICE(S) PROVIDED: [facility] - Hepatology Protocol - Abdominal 20980 Limited Survey Single Organ or Quadrant - [id number] INDICATIONS: Transaminitis ------ LIVER: ------ Right Lobe [...] PM Electronically signed by: Curt Dozier MD, [facility] ([phone]), at 03/27/2023 3:31 PM Thank you for letting us participate in the care of this patient. If you are a health care provider and have any questions regarding this report, please contact the number above. For patients who have questions, please contact the health patient care that requested your imaging first. Curt Dozier, Staff Physician Electronically Signed Final Report 03/27/2023 03:36 pm Gabo Banda MD IMG US GEN ORDERABL ES documented in this encounter Visit Diagnoses Diagnosis 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 Acute osteomyelitis, other specified site documented in this encounter Care Teams Woodworker Helper Relationship Specialty Start Date End Date Lorna Bal APRN [address] [place] [address] PCP - General Family Medicine 05/27/18 documented as of this encounter
--- OUTSIDE RECORDS SUMMARY | 2023-11-09 18:12 | XMS_ITS | Encounter Summary ---
Author Organization [facility] [place] [address] Care Team Providers Care Dinkey Skinner Name Role Phone Lorna Bal APRN Primary Care Provider +1 -[phone] Reason for Referral * Diagnostic Test (Routine) - Closed Specialty Diagnoses / Procedures Referred By Contac t Referred To Contact Radiology Diagnoses 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 Procedures CT Lumbar Spine w Contrast Jaamr Dasilva MD [facility] [place] [address] [facility] [place] [address] Referral ID Status Reason Start Date Expiration Date V isits Requested Visits Authorized [id number] Closed Specialty Service Requested 09/25/2022 03/27/2024 1 1 Encounter Details Date Type Department Care Team (Late st Contact Info) Description 09/25/2022 Orders [place] [address] Jamar Dasilva MD [facility] [place] [address] 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 Social History Tobacco Use Types Packs/Day Years Used Date Smoking Tobacco: Never Smokeless Tobacco: Never Comments:NO SMOKERS IN THE H OME Alcohol Use Standard Drinks/Week Comments No 0 (1 standard drink = 0.6 oz pur e alcohol) [facility] Inpatient Questions Answer Date Recorded Does Anyone [...] EDT TH Visit (TeleHealth) [place] [address] Lilli Joy APRN [facility] [place] [address] 11/30/2023 12:50 PM EDT [place] [address] 12/03/2023 12:30 PM EDT Office [place] [address] Hollie Ambriz MD [facility] [place] [address] documented as of this encounter Results * [...] who have questions please contact the health social worker palliative care that requested your imaging first. ? Narrative 09/26/2022 10:59 AM EDT EXAMINATION: CT [...] patients who have questions please contactthe health social worker palliative care that requested your imaging first. Jamar Dasilva MD IMG CT ORDERABLES documented in this encounter Visit Diagnoses Diagnosis 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 Acute osteomyelitis, other specified site 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 Acute osteomyelitis, other specified site documented in this encounter Care Teams Dinkey Skinner Relationship Specialty Start Date End Date Lorna Bal APRN [address] [place] [address] PCP - General Family Medicine 05/27/18 documented as of this encounter
--- OUTSIDE RECORDS SUMMARY | 2023-11-09 18:12 | XMS_ITS | Encounter Summary ---
Author Organization [facility] [place] [address] Care Team Providers Care Electrical Maintenance Man Name Role Phone Lorna Bal APRN Primary Care Provider +1 -[phone] Encounter Details Date Type Department Care Team (Late st Contact Info) Description 09/25/2022 Telephone [place] [address] Jamar Dasilva MD [facility] [place] [address] Social History Tobacco Use Types Packs/Day Years [...] encounter Miscellaneous Notes * Telephone Encounter - Maryanne Sarabia RN - 09/25/2022 2:02 PM EDT Tana's mother, Javed, called to update on her daughter's status. Tana saw her neurosurgeon today in [employer]. He feels that her symptoms are an allergic reaction to the current abx and requests that the abx be changed. The neurosurgeon said that they need to go in and remove a screw and clean out the area around the meredith in Tana's back. They do not want to do this at [facility] as it will require a plastic surgeon to close up due to Tana's skin being compromised. Javed relays that the neurosurgeon is trying to arrange surgery in [place] where a plastic surgeon is available. The neurosurgeon needs to know the specific material used in the meredith and screws. Javed has put in for a records through medical records department. She is hoping Dr. Dasilva could get her this information quickly so she can forward to the neurosurgeon to facilitate surgery. Questions Javed is asking- #1 -How can we get the abx changed? #2 -What material is in the hardware? #3 -Tana's CRP is a little over 70. Mom was told previously if it went over 70 [facility] she [facility] that? No fever and WBC is normal. #4- Can Dr. Dasilva help to schedule an appt with radiology to have the drains put back in? documented in this encounter Plan of Treatment Upcoming Encounters Date Type Department Care Team (Late st Contact Info) Description 11/19/2023 2:30 PM EDT TH Visit (TeleHealth) [place] [address] Lilli Joy APRN [facility] [place] [address] 11/30/2023 12:50 PM EDT [place] [address] 12/03/2023 12:30 PM EDT Office [place] [address] Hollie Ambriz MD [facility] [place] [address] documented as of this encounter Visit Diagnoses Not on filedocumented in this encounter Care Teams Electrical Maintenance Man Relationship Specialty Start Date End Date Lorna Bal APRN [address] [place] [address] PCP - General Family Medicine 05/27/18 documented as of this encounter
--- OUTSIDE RECORDS SUMMARY | 2023-11-09 18:12 | XMS_ITS | Encounter Summary ---
Author Organization [facility] [place] [address] Care Team Providers Care Paper Rewinder Operator Name Role Phone Lorna Bal APRN Primary Care Provider +1 -[phone] Encounter Details Date Type Department Care Team (Late st Contact Info) Description 03/30/2023 Telephone [place] [address] Halima García Social History Tobacco Use Types Packs/Day Years Used Date Smoking Tobacco: Never Smokeless Tobacco: Never Comments:NO SMOKERS IN THE H OME Alcohol Use Standard Drinks/Week Comments No 0 (1 standard drink = 0.6 oz pur e alcohol) [facility] Inpatient Questions Answer Date Recorded Does [...] * Telephone Encounter - Halima García - 03/30/2023 8:44 AM EST Erika - pharmacist CB: [phone] [facility] - [place], [place] - [address] [facility]. Erika from [facility] called Dr. Tipton isn't setup with [place] medicaid so the script for bactrim won't go through. The pharmacy is requesting a new script from the attending. Jack Varghese documented in this encounter Plan of Treatment Upcoming Encounters Date Type Department Care Team (Late st Contact Info) Description 11/19/2023 2:30 PM EDT TH Visit (TeleHealth) [place] [address] Lilli Joy APRN [facility] [place] [address] 11/30/2023 12:50 PM [place] [address] 12/03/2023 12:30 PM EDT Office [place] [address] Hollie Ambriz MD [facility] [place] [address] documented as of this encounter Visit Diagnoses Not on filedocumented in this encounter Care Teams Paper Rewinder Operator Relationship Specialty Start Date End Date Lorna Bal APRN [address] [place] [address] PCP - General Family Medicine 05/27/18 documented as of this encounter
--- OUTSIDE RECORDS SUMMARY | 2023-11-09 18:12 | XMS_ITS | Encounter Summary ---
Author Organization [facility] [place] [address] Care Team Providers Care Primer Waterproofing Machine Operator Name Role Phone Lorna Bal APRN Primary Care Provider +1 -[phone] Encounter Details Date Type Department Care Team (Late st Contact Info) Description 09/25/2022 Telephone [place] [address] Valentina Stanton Social History Tobacco Use Types [...] EDT TH Visit (TeleHealth) [place] [address] Lilli Joy APRN [facility] [place] [address] 11/30/2023 12:50 PM EDT [place] [address] 12/03/2023 12:30 PM EDT Office [place] [address] Hollie Ambriz MD [facility] [place] [address] documented as of this encounter Visit Diagnoses Not on filedocumented in this encounter Care Teams Primer Waterproofing Machine Operator Relationship Specialty Start Date End Date Lorna Bal APRN [address] [place] [address] PCP - General Family Medicine 05/27/18 documented as of this encounter
--- OUTSIDE RECORDS SUMMARY | 2023-11-09 18:12 | XMS_ITS | Encounter Summary ---
Author Organization [facility] [place] [address] Care Team Providers Care Air Export Operations Agent Name Role Phone Lorna Bal APRN Primary Care Provider +1 -[phone] Encounter Details Date Type Department Care Team (Late st Contact Info) Description 12/25/[address] [place] [address] Sirisha Patino Social History Tobacco Use Types Packs/Day Years Used Date Smoking Tobacco: Never Smokeless Tobacco: Never Comments:NO SMOKERS IN THE H OME Alcohol Use Standard Drinks/Week Comments No 0 (1 standard drink = 0.6 oz pur e alcohol) [facility] Inpatient Questions Answer Date Recorded Does [...] TH Visit (TeleHealth) [place] [address] Lilli Joy APRN [facility] [place] [address] 11/30/2023 12:50 PM EDT Appointment [place] [address] 12/03/2023 12:30 PM EDT Office Visit [place] [address] Hollie Ambriz MD [facility] [place] [address] documented as of this encounter Visit Diagnoses Not on filedocumented in this encounter Care Teams Air Export Operations Agent Relationship Specialty Start Date End Date Lorna Bal APRN [address] [place] [address] PCP - General Family Medicine 05/27/18 documented as of this encounter
--- OUTSIDE RECORDS SUMMARY | 2023-11-09 18:12 | XMS_ITS | Encounter Summary ---
[place] [address] Care Team Providers Care Mailing Manager Name Role Phone Lorna Bal APRN Primary Care Provider +1 -[phone] Encounter Details Date Type Department Care Team (Latest Contact Info) Description 01/29/2023 Travel Social History Tobacco Use Types Packs/Day Years Used Date Smoking Tobacco: Never Smokeless Tobacco: Never Comments:NO SMOKERS IN THE H OME Alcohol Use Standard Drinks/Week Comments No 0 (1 standard drink = 0.6 oz pur e alcohol) [facility] Inpatient Questions Answer Date Recorded Does [...] EDT TH Visit (TeleHealth) Infectious Disease at [facility] [place] [address] Lilli Joy [place] [facility] [address] 11/30/2023 12:50 PM EDT [place] [address] 12/03/2023 12:30 PM EDT Office [place] [address] Hollie Ambriz MD [facility] [place] [address] documented as of this encounter Visit Diagnoses Not on filedocumented in this encounter Care Teams Mailing Manager Relationship Specialty Start Date End Date Lorna Bal APRN [address] [place] [address] PCP - General Family Medicine 05/27/18 documented as of this encounter
--- OUTSIDE RECORDS SUMMARY | 2023-11-09 18:12 | XMS_ITS | Encounter Summary ---
[place] [address] Care Team Providers Care Box Sealing Machine Feeder Name Role Phone Lorna Bal APRN Primary Care Provider +1 -[phone] Encounter Details Date Type Department Care Team (Latest Contact Info) Description 04/16/2023 4:05 PM EST Laboratory Appointment Lab [address] [place] [address] 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 Social History Tobacco Use Types [...] EDT TH Visit (TeleHealth) [place] [address] Lilli Joy [place] [address] 11/30/2023 12:50 PM EDT [place] [address] 12/03/2023 12:30 PM EDT Office [place] [address] Hollie Ambriz MD [facility] [place] [address] documented as of this encounter Procedures Procedure Name Priority Date/Time Associated Diagnosis Comments HC VENIPUNCTURE Routine 04/16/2023 4:20 PM EST 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 BILIRUBIN, DIRECT Routine 04/16/2023 4:2 0 PM EST COMPREHENSIVE METABOLIC PANEL (NON-FASTING) Routine 04/16/2023 4:20 PM EST 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 documented in this encounter Results * Bilirubin, Direct (04/16/2023 4:20 PM EST) [facility] Bili, Direct <0.1 0.0 - 0.3 mg/dL [facility] Blood 04/16/2023 4:20 PM EST 04/16/2023 4:28 PM EST Narrative Resulting Agency Comment Spec In Lab George Tipton MD CHEMISTRY ORDERABLES [facility] [place] [address] * (ABNORMAL) Comprehensive metabolic panel (non-fasting) (04/16/2023 4:20 PM EST) [facility] Glucose Lvl 79 65 - 199 mg/dL [facility] Comment:Diabetes: >=200 mg/d L plus symptoms BUN 10 8 - 18 mg/dL [facility] Creatinine 0.49(L) 0.70 - 1.20 mg/dL [facility] Sodium 137 135 - 145 mmol/L [facility] Potassium 3.8 3.5 - 5.0 mmol/L [facility] Comment: Please note: ??Patients with WBC >100,000 may have falsely elevated Potassium levels. ??For accurate Potassium quantification in these patients send serum separator tube (gold top) for subsequent determinations. ??Contact the Clinical Chemistry Laboratory if there are any questions. Chloride 99 98 - 107 mmol/L [facility] CO2 27 22 - 31 mmol/L [facility] Anion Gap 11 5 - 15 mmol/L [facility] Calcium 9.4 8.5 - 10.5 mg/dL [facility] Total Protein 7.9 6.1 - 8.0 g/dL [facility] Albumin 4.2 3.2 - 5.2 g/dL [facility] AST 15 0 - 30 unit/L [facility] ALT 40(H) 0 - 30 unit/L [facility] Alk Phos 320(H) 35 - 105 unit/L [facility] Total Bilirubin <0.2(L) 0.2 - 1.3 mg/dL [facility] Estimated GFR 131 >=60 mL/min/1. 73 m?? [facility] Comment: This patient's estimated GFR [...] Narrative Resulting Agency Comment Spec In Lab Keri Trevino MD CHEMISTRY ORDERABLE S Performing Organization Address City/[facility]/ZIP Co de Phone Number [facility] [place] [address] * (ABNORMAL) CRP, acute inflammation (04/16/2023 4:20 PM EST) CRP 47.2(H) <=4.9 mg/L [facility] Blood 04/16/2023 4:20 PM EST 04/16/2023 4:28 PM EST Narrative Resulting Agency Comment Spec In Lab Keri Trevino MD CHEMISTRY ORDERABLE S Performing Organization Address City/[facility]/ZIP Co de Phone Number [facility] [place] [address] documented in this encounter Visit Diagnoses Diagnosis 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 Acute osteomyelitis, other specified site documented in this encounter Care Teams Box Sealing Machine Feeder Relationship Specialty Start Date End Date Lorna Bal APRN [address] [place] [address] PCP - General Family Medicine 05/27/18 documented as of this encounter
--- OUTSIDE RECORDS SUMMARY | 2023-11-09 18:12 | XMS_ITS | Encounter Summary ---
Author Organization [facility] [place] [address] Care Team Providers Care Boat Person Name Role Phone Lorna Bal APRN Primary Care Provider [phone] Reason for Referral * Diagnostic Test (Routine) - Closed Specialty Diagnoses / Procedures Referred By Contac t Referred To Contact Radiology Diagnoses 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 Procedures CT Lumbar Spine w Contrast George Tipton MD [facility] [place] [address] [facility] [place] [address] Referral ID Status Reason Start Date Expiration Date V isits Requested Visits Authorized [id number] Closed Specialty Service Requested 04/15/2023 10/14/2024 1 1 Reason for Visit * Diagnostic Test (Routine) - Closed Specialty Diagnoses / Procedures Referred By Contac t Referred To Contact Radiology Diagnoses 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 Procedures CT Lumbar Spine w Contrast George Tipton MD [facility] [place] [address] [facility] [place] [address] Referral ID Status Reason Start Date Expiration Date V isits Requested Visits Authorized [id number] Closed Specialty Service Requested 04/15/2023 10/14/2024 1 1 Encounter Details Date Type Department Care Team (Latest Contact Info) Description 04/16/2023 3:10 PM EST - 04/16/2023 11:59 PM EST [place] [address] [place] [address] 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 Discharge Disposition: Home [...] EDT TH Visit (TeleHealth) [place] [address] Lilli Joy APRN [facility] [place] [address] 11/30/2023 12:50 PM [place] [phone] 12/03/2023 12:30 PM EDT Office [place] [phone] Hollie Ambriz MD [facility] [place] [address] documented as of this encounter Procedures Procedure Name Priority Date/Time Associated Diagnosis Comments CT LUMBAR SPINE WITH CONTRAST Routine 04/16/2023 3:45 PM EST 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 documented in this [...] your imaging first. ? Electronically signed by: Bobo Keane MD, [facility] ([phone]), at 04/17/2023 10:53 AM Narrative 04/17/2023 10:53 AM EST EXAMINATION: CT [...] requested your imaging first. Electronically signed by: Bobo Keane MD, [facility]([phone]), at 04/17/2023 10:53 AM Keri Trevino MD IMG CT ORDERABLES documented in this encounter Visit Diagnoses Diagnosis 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 Acute osteomyelitis, other specified site documented in this encounter Administered Medications Inactive Administered Medications - up to 3 most recent administrations Medication Order MAR Action Action Date Dose Rate Site iohexoL (Omnipaque) (350 mg/mL) solution 0-200 mL 0-200 mL, Intravenous, ONCE PRN, 1 dose, Starting on Dianne 04/16/23 at 1545, Until Dianne 04/16/23 at 1545, Per Protocol, Warning Vesicant/Irritant Medication , Radiology Contrast, Routine Given 04/16/2023 3:45 PM EST 80 mLs documented in this encounter Care Teams Boat Person Relationship Specialty Start Date End Date Lorna Bal, [employer] [address] [place] [address] PCP - General Family Medicine 05/27/18 documented as of this encounter
--- OUTSIDE RECORDS SUMMARY | 2023-11-09 18:12 | XMS_ITS | Encounter Summary ---
[place] [address] Care Team Providers Care Compressor Mechanic Name Role Phone Lorna Bal APRN Primary Care Provider [phone] Encounter Details Date Type Department Care Team (Latest Contact Info) Description 12/31/2022 Travel Social History Tobacco Use Types Packs/Day Years Used Date Smoking Tobacco: Never Smokeless Tobacco: Never Comments:NO SMOKERS IN THE H OME Alcohol Use Standard Drinks/Week Comments No 0 (1 standard drink = 0.6 oz pur e alcohol) [facility] Inpatient Questions Answer Date Recorded [...] EDT TH Visit (TeleHealth) Infectious Disease at [facility] [place] [phone] Lilli Joy APRN [facility] [place] [address] 11/30/2023 12:50 PM EDT Appointment [place] [address] 12/03/2023 12:30 PM EDT Office Visit [place] [address] Hollie Ambriz MD [facility] [place] [address] documented as of this encounter Visit Diagnoses Not on filedocumented in this encounter Care Teams Compressor Mechanic Relationship Specialty Start Date End Date Lorna Bal APRN [address] [place] [address] PCP - General Family Medicine 05/27/18 documented as of this encounter
--- OUTSIDE RECORDS SUMMARY | 2023-11-09 18:12 | XMS_ITS | Encounter Summary ---
[place] [address] Care Team Providers Care Spring Machine Operator Name Role Phone Lorna Bal APRN Primary Care Provider [phone] Reason for Referral * Diagnostic Test (Routine) - Closed Specialty Diagnoses / Procedures Referred By Contac t Referred To Contact Radiology Diagnoses 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 Procedures IR All Drainage Procedures IR All Biopsy Procedures Jamar Dasilva MD [facility] [place] [address] [place] [address] Referral ID Status Reason Start Date Expiration Date V isits Requested Visits Authorized [id number] Closed Specialty Service Requested 09/26/2022 03/28/2024 1 1 Reason for Visit * Diagnostic Test (Routine) - Closed Specialty Diagnoses / Procedures Referred By Contac t Referred To Contact Radiology Diagnoses 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 Procedures IR All Drainage Procedures IR All Biopsy Procedures Jamar Dasilva MD [facility] [place] [address] [facility] [place] [address] Referral ID Status Reason Start Date Expiration Date V isits Requested Visits Authorized [id number] Closed Specialty Service Requested 09/26/2022 03/28/2024 1 1 Encounter Details Date Type Department Care Team (Latest Contact Info) Description 09/26/2022 12:13 PM EDT - 09/26/2022 11:59 PM EDT Hospital [place] [address] Jamar Dasilva MD [facility] [place] [address] 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 Discharge Disposition: Home [...] Sign Reading Time Taken Comments Blood Pressure 109/76 09/26/2022 1:42 PM EDT Pulse 69 09/26/2022 12:42 PM EDT Temperature - - Respiratory Rate 16 09/26/2022 1:42 PM EDT Oxygen Saturation 97% 09/26/2022 1:42 PM EDT Inhaled Oxygen Concentration - - Weight 49.4 kg (108 lb 12.8 oz) 023 12:42 PM EDT Height - - Body Mass Index 19.89 09/10/2022 10:00 AM EDT documented in this encounter Discharge Instructions * Discharge Instructions* Nathalie Rivera RN - 09/26/2022 1:27 PM EDT Discharge Instructions For Your Puncture Site Activity and Diet: Go Home and rest quietly for the remainder of the day. You may resume your normal activities tomorrow. Resume your usual diet after the procedure. Bandage: There is a sterile dressing over the puncture site consisting of small gauze with a clear dressing (Tegaderm). This dressing should be left in place for 24 hours. If the clear dressing becomes loose you should place tape over the edges to secure it in place. Bathing: Do not take a shower until 24 hours after your procedure; after this time you may shower with the dressing in place, then remove it and pat your skin dry. You may use a bandaid to cover the site if there is any drainage. When to call your healthcare provider: If you notice bleeding or a bulge from the puncture site, you should apply firm pressure over the site for 10-15 minutes, keeping the site covered and call your doctor. If you are still bleeding after 10-15 minutes, reapply pressure, and have someone drive you to the nearest Emergency Department, or call 911. If you develop pain, redness, drainage or swelling at or around the puncture site. If you develop fever equal to or greater than 101F and/or shaking chills. When to call the Interventional Radiology Department: Please call with any questions or concerns. If it is during regular office hours, please call [phone]. If it is after regular office hours, or on weekends or holidays, please call [phone] and ask to speak to the Insulation Cutter educational specialist for Interventional Radiology. You have received medication during your procedure to help lessen anxiety and keep you comfortable.These medications affect judgement and reaction time. We recommend that you do not drive, operate equipment, sign any important documents, or smoke unattended for 24 hours following your procedure. Because of the sedation, be careful on stairs, as you may be unsteady on your feet. You may resume your regular diet as tolerated. IV site -- slight redness, or tenderness is normal, you can use a warm compress. If tenderness and redness increases or foul drainage occurs, please contact your M. D. Revised 05/11/15 documented in this encounter Medications at Time [...] 06/02/2022 10/29/2023 documented as of this encounter Progress Notes * Nathalie Rivera, RN - 09/26/2022 1:32 PM EDT [facility] DATABASE Name: Tana Cavazos Date of : 1995 AGE: 27 y.o. Address: [address] [place] [address] Phone: [phone] (home) Mobile: Telephone Information: Referring Provider: Jamar Dasilva REASON FOR VISIT: Paralumbar fluid aspiration Order Questions Answers Where will study be performed? [facility] Radiology [120] Is the patient on anticoagulant / antiplatelet therapy ? No Reason for exam and clinical history: history of fluid collections in spinie. CT shows small residual collections after drain removal. please aspirate. d/w IR (Chrissie) Is the patient ? No Planned procedure: Paralumbar fluid aspiration- 2 collections Labs to be performed day of procedure: No labs Sedation: Other (See comments) (Versed only) Prophylactic antibiotic : None Contrast: No contrast Additional medications for procedure: Lidocaine Planned access site: Existing lumbar drains Position: Prone Consent: Pending Medications to discontinue (and days held): None Case Urgency:: F- Elective OUT-patient intervention within 3 days Allergies Allergen Reactions ??? Fluoxetine Other (See Comments) HIVES, HEART RACES ??? Tegaderm [Transparent Dressings] Itching and Dermatitis Please use [id number] ??? Penicillins Pertinent PMH: Patient Active Problem List Diagnosis Code ??? 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 Acquired dysplasia of hip, bilateral M21.859 ??? Edema leg R60.0 ??? Scoliosis M41.9 ??? Spasticity R25.2 ??? Presence of intrathecal baclofen pump Z97.8 ??? Right leg pain M79.604 ??? Fracture of femur, distal S72.409A ??? 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 M46.20 ??? Abscess L02.91 Date/Procedure Meds Given/Comments 06/25/22 Low back drain placement Versed 2 mg IV 07/01/22 drain removed local 07/04/2022 Lower back drain placement IV Versed 0.5 mg 07/24/22 drain placement x 2 2mg versed, local lidocaine 08/11/22 Drain check and drain replacement of #1 10F Local only; tolerated well. 09/10/22 Drain removal x 2 Local only 09/26/22 Low back Fluid aspiration Midazolam 1mg IV. Caregiver Mariano in procedure w/ pt, supportive of pt and aided w/ positioning. 1308 to procedure room 1 via stretcher. Remains on stretcher, L side lying. All monitors, O2, safety strap in place. Meds per protocol. Laboratory Results: Lab Results Component Value Date CREATININE 0.25 (L) 08/11/2022 Lab Results Component Value Date K 4.0 08/11/2022 Lab Results Component Value Date PLATELET 387 (H) 08/11/2022 documented in this encounter H&P Notes * Chrissie Lee PA - 09/26/2022 12:12 PM EDT Images from the original note were not included. Interventional Radiology Focused Pre-procedure H&P: PCP: Lorna Bal APRN Referring Provider: Jamar Dasilva Planned procedure: Paralumbar fluid aspiration- 2 collections Procedure indication: Paralumbar fluid collections, back pain IR workflow: Procedure request received through Interventional Radiology eDH order queue. Order Questions Answers Where will study be performed? [facility] Radiology [120] Is the patient on anticoagulant / antiplatelet therapy ? No Reason for exam and clinical history: history of fluid collections in spinie. CT shows small residual collections after drain removal. please aspirate. d/w IR (Chrissie) Is the patient ? No History of Present Illness: Per chart review, Tana Cavazos is a 27 y.o. female with PMH of CP, spastic quadriplegia and scoliosis s/p spinal fusion in ' with recurrent subcutaneous paralumbar abscesses who presents to Interventional Radiology to undergo aspiration of 2 paralumbar fluid collections with cultures in the setting of recent back pain and CT L-Spine 09/26 demonstrating collections. Case discussed with IR attending, Dr. Self. Fluid collections are too small for drain placement. Remainder of patient's medical and surgical history, allergies, medications, and social/family history obtained below as previously outlined in patient's medical record. IR History: Date/Procedure Meds Given/Comments 06/25/22 Low back drain placement Versed 2 mg IV ??07/01/22 drain removed?local ??07/04/2022 Lower back drain placement ??IV Versed??0.5 mg?07/24/22??drain placement x 2 2mg versed, local lidocaine 08/11/22 Drain check??and drain replacement of #1 10F Local only; tolerated well.?09/10/22 Drain removal x 2 ??Local only ?? Imagin09/26/22 Assessment: 27 y.o. female with paralumbar fluid collections presenting to Interventional Radiologyfor aspiration and culture. Plan Planned procedure: Paralumbar fluid aspiration- 2 collections Labs to be performed day of procedure: No labs Sedation: Other (See comments) (Versed only) Prophylactic antibiotic : None Contrast: No contrast Additional medications for procedure: Lidocaine Consent: Pending Medications to discontinue (and days held): None Cytopathology presence needed: No Case Urgency:: F- Elective OUT-patient intervention within 3 days Labs: Lab Results Component Value Date HGB 12.1 08/11/2022 HCT 37.4 08/11/2022 WBC 6.2 08/11/2022 PLATELET 387 (H) 08/11/2022 BUN 9 08/11/2022 CREATININE 0.25 (L) 08/11/2022 ALBUMIN 4.2 08/11/2022 BILIDIR <0.1 07/07/2022 BILITOT <0.2 (L) 08/11/2022 AST 19 08/11/2022 ALT 26 08/11/2022 ALKPHOS 211 (H) 08/11/2022 Allergies: Fluoxetine, Tegaderm [transparent dressings], and Penicillins Medications: Current Outpatient Medications on File Prior to Encounter Medication Sig Dispense Refill ??? sulfamethoxazole-trimethoprim DS (Bactrim DS) 800-160 mg tablet Take 1 tablet by mouth 2 times daily for 30 days. 60 tablet 3 ??? doxycycline (Vibramycin) 100 mg capsule Take [...] Tablet Take 1 tablet by mouth daily. Current Facility-Administered Medications on File Prior to Encounter Medication Dose Route Frequency Provider Last Rate Last Admin ??? [COMPLETED] iohexoL (Omnipaque) (350 mg/mL) solution 0-200 mL 0-200 mL Intravenous Once PRN Aleksandr Khan, DO 70 mL at 09/26/22 1045 Past Medical/Surgical history: Patient Active Problem List Diagnosis Code ??? 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 Acquired dysplasia of hip, bilateral M21.859 ??? Edema leg R60.0 ??? Scoliosis M41.9 ??? Spasticity R25.2 ??? Presence of intrathecal baclofen pump Z97.8 ??? Right leg pain M79.604 ??? Fracture of femur, distal S72.409A ??? 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 M46.20 ??? Abscess L02.91 No past medical history on file. Past Surgical History: Procedure Laterality Date ??? BACK SURGERY scoliosis repair ??? HIP OSTEOTOMY bilateral ??? IR ALL DRAINAGE PROCEDURES 06/25/2022 IR All Drainage Procedures 06/25/2022 Mich Martino MD [facility] INTERVENTIONL RAD ??? IR ALL DRAINAGE PROCEDURES 07/04/2022 IR All Drainage Procedures 07/04/2022 Mich Martino MD [facility] RAD ??? IR ALL DRAINAGE PROCEDURES 07/24/2022 IR All Drainage Procedures 07/24/2022 Anurag Kumar MD [facility] RAD ??? IR DRAIN CHECK/CHANGE/REMOVE 07/01/2022 IR Drain Check/Change/Remove 07/01/2022 Jamaal Jenkins, DO [facility] RAD ??? IR DRAIN CHECK/CHANGE/REMOVE 08/11/2022 IR Drain Check/Change/Remove 08/11/2022 Piter Self MD [facility] RAD ??? IR DRAIN CHECK/CHANGE/REMOVE 08/25/2022 IR Drain Check/Change/Remove 08/25/2022 Jamaal Jenkins, DO [facility] RAD ??? IR DRAIN CHECK/CHANGE/REMOVE 09/10/2022 IR Drain Check/Change/Remove 09/10/2022 Mich Martino MD [facility] RAD ??? PRO APPLY OF HIP CASTS, TWO LEGS 08/15/2010 CAST APPLICATION, HIP SPICA, BOTH LEGS performed by BARRERA OLIVER at [facility] MAIN OR ? ? PRO I&D, POST SPINE, LUMB/SACR/LUMBOSAC N/A 05/20/2014 @I & D, OPEN, DEEP ABSCESS, LUMBAR, SACRAL, LUMBOSACRAL performed by Freddy Isbell MD at [facility] MA[facility] OR ? ? PRO I&D, POST SPINE, LUMB/SACR/LUMBOSAC N/A 05/26/2014 @I & D, OPEN, DEEP ABSCESS, LUMBAR, SACRAL, LUMBOSACRAL performed by Freddy Isbell MD at [facility] MA[facility] OR ??? PRO IMPACT TOOTH REMOV COMP BONY N/A 06/14/2018 SURGICAL EXTRACTIONS, REMOVAL OF IMPACTED TOOTH, COMPLETELY BONY (WRVU 1.93) performed by Keith Cotton MD at [facility] ??? PRO OSTEOTOMY FEMUR SHAFT/SUPRACONDY 08/15/2010 ??OSTEOTOMY, FEMUR SHAFT OR SUPRACONDYLAR W/O FIXATION performed by BARRERA OLIVER at [facility] MA[facility] OR ??? PRO RECONSTRUC HIP SOCKET, RESEC FEM HEAD 08/15/2010 ??ACETABULOPLASTY (GIRDLESTONE), RESECTION FEMORAL HEAD, BILATERAL performed by BARRERA OLIVER [facility] OR ??? PRO REMOVAL DEEP IMPLANT 08/15/2010 REMOVAL IMPLANT, DEEP, BRUNO performed by BARRERA OLIVER at [facility] MA[facility] OR ??? PRO REMOVAL ERUPTED TOOTH WITH ELEVATION OF MUCOPERIOSTEAL FLAP N/A 06/14/2018 SURGICAL EXTRACTIONS REQUIRING ELEVATION OF MUCOPERIOSTEAL FLAP AND REMOVAL OF BONE OR SECTION OF TOOTH (WRVU 1.09) performed by Keith Cotton MD at [facility] ??? PRO REMOVE INFUSN DEVICE/PUMP N/A 05/11/2014 REMOVAL OF SPINE INFUSION PUMP performed by Jamaal Samuel MD at [facility] OR ??? PRO REMOVE SPINAL CANAL CATHETER N/A 05/11/2014 REMOVAL OF INTRATHECAL OR EPIDURAL CATHETER performed by Jamaal Samuel MD at [facility] OR ??? PRO REPR, DURAL/CSF LEAK, NOT REQ LAMINECTOMY N/A 05/20/2014 @REPAIR DURAL\CSF LEAK,NOT REQUIRING LAMINECTOMY performed by Freddy Isbell MD at [facility] OR Social History and Habits: Social History Tobacco Use ??? Smoking status: Never ??? Smokeless tobacco: Never ??? Tobacco comments: NO SMOKERS IN THE HOME Vaping Use ??? Vaping Use: Never used Substance Use Topics ??? Alcohol use: No ??? Drug use: No Significant Family History: Family History Problem Relation Age of Onset ??? Cancer Maternal Grandmother ??? Heart Disease Maternal Grandfather Pertinent ROS: as per HPI Physical Exam: Pending (to be performed in IR the day of procedure) ASA: Pending (to be assessed in IR the day of procedure) Mallampati class: Pending (to be assessed in IR the day of procedure) 09/26/2022 Chrissie Lee PA-C documented in this encounter Plan of Treatment Upcoming Encounters Date Type Department Care Team (Late st Contact Info) Description 11/19/2023 2:30 PM EDT TH Visit (TeleHealth) [place] [address] Lilli Joy [address]N [facility] [place] [address] 11/30/2023 12:50 PM EDT [place] [phone] 12/03/2023 12:30 PM EDT Office [place] [phone] Hollie Ambriz MD [facility] [place] [address] documented as of this encounter Procedures Procedure Name Priority Date/Time Associated Diagnosis Comments IR ALL DRAINAGE PROCEDURES Routine 09/26/2022 1:33 PM EDT 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 HC FUNGUS CULTURE, MISC SOURCE Routine 09/26/2022 12:49 PM EDT 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 ANAEROBIC CULTURE Routine 09/26/2022 12: 49 PM EDT 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 HC GRAM STAIN FOR BACTERIA Routine 09/26/2022 12:49 PM EDT 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 HC MYCOBACTERIA CULTURE Routine 09/26/2022 12:49 PM EDT 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 FUNGAL STAIN Routine 09/26/2022 12:49 PM EDT 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 ABSCESS/WOUND ASPIRATE CULTURE Routine 09/26/2022 12:49 PM EDT 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 FUNGUS CULTURE Routine 09/26/2022 12:49 PM EDT 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 documented in this encounter Results * IR All Drainage [...] Jamar Dasilva MD IMG IR ORDERABLES * Anaerobic Culture (09/26/2022 12:49 PM EDT) Anaerobic Culture No anaerobic organisms isolated [facility] Abscess STRUCTURE OF BACK OF TRUNK / Unknown 09/26/2022 12:49 PM EDT 09/26/2022 2:05 PM EDT Narrative Resulting Agency Comment Spec In Lab Jamar Dasilva MD MICROBIOLOGY - GE NERAL ORDERABLES Performing Organization Address [facility] Co de Phone Number [facility] [place] [address] * Abscess/Wound Aspirate Culture (09/26/2022 12:49 PM EDT) Abscess/Wound Aspirate Culture No growth [facility] Gram Stain Few Neutrophils seen No microorganisms seen. [facility] Abscess STRUCTURE OF BACK OF TRUNK / Unknown 09/26/2022 12:49 PM EDT 09/26/2022 2:05 PM EDT Narrative Resulting Agency Comment Spec In Lab Jamar Dasilva MD MICROBIOLOGY - GE NERAL ORDERABLES Performing Organization Address [facility] Co de Phone Number [facility] [place] [address] * Calcofluor White Stain (09/26/2022 12:49 PM EDT) Calcofluor Stain Calcofluor White Preparation: Negative [facility] Abscess 09/26/2022 12:4 9 PM EDT 09/26/2022 2:05 PM EDT Narrative Resulting Agency Comment Spec In Lab Jamar Dasilva MD MICROBIOLOGY - GE NERAL ORDERABLES Performing Organization Address [facility] Co de Phone Number [facility] [place] [address] * Fungus culture (09/26/2022 12:49 PM EDT) Fungus Culture No Fungus isolated [facility] Abscess 09/26/2022 12:4 9 PM EDT 09/26/2022 2:05 PM EDT Narrative Resulting Agency Comment Spec In Lab Jamar Dasilva MD MICROBIOLOGY - GE NERAL ORDERABLES Performing Organization Address [facility] Co de Phone Number [facility] [place] [address] * AFB culture Back (09/26/2022 12:49 PM EDT) Acid Fast Bacilli Culture No Acid Fast Bacilli isolated [facility] Acid Fast Stain No Acid Fast Bacilli seen [facility] Back 09/26/2022 12:4 9 PM EDT 09/26/2022 2:05 PM EDT Narrative Resulting Agency Comment Spec In Lab Jamar Dasilva MD MICROBIOLOGY - GE NERAL ORDERABLES Performing Organization Address [facility] [place] [address] documented in this encounter Visit Diagnoses Diagnosis 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 Acute osteomyelitis, other specified site documented in this encounter Administered Medications Inactive Administered Medications - up to 3 most recent administrations Medication Order MAR Action Action Date Dose Rate Site lidocaine (Xylocaine) 1% (10 mg/mL) injection 10 mg 10 mg, Subcutaneous, ONCE, 1 dose, On Thu09/26/22 at 1315, For use in Interventional Radiology (IR) only for procedure with direct provider supervision and verbal order., Angio/IR (Intra-Procedure), Routine Given 09/26/2022 1:27 PM EDT 10 mg midazolam (pf) (Versed) (1 mg/mL) multi-dose injection 0.5-1 mg 0.5-1 mg, Intravenous, EVERY 3 MIN PRN, Starting on Thu09/26/22 at 1257, Until Thu09/26/22 at 1441, Sedation, For use in Interventional Radiology (IR) [...] mg/dose, 5 mg/hour., Angio/IR (Intra-Procedure), Routine Given 09/26/2022 1:21 PM EDT 0.5 mg Given 09/26/2022 1:17 PM EDT 0.5 mg sodium chloride 0.9 % (flush) (BD PosiFlush Normal Saline 0.9) flush 5 mL 5 mL, Intravenous, 2 TIMES DAILY, First dose on Thu09/26/22 at 1315, Until Discontinued, Angio/IR (Day of Procedure), Routine Given 09/26/2022 1:20 PM EDT 5 mLs documented in this encounter Care Teams Spring Machine Operator Relationship Specialty Start Date End Date Lorna Bal, [place] [address] [place] [address] PCP - General Family Medicine 05/27/18 documented as of this encounter
--- OUTSIDE RECORDS SUMMARY | 2023-11-09 18:12 | XMS_ITS | Encounter Summary ---
Author Organization [facility] [place] [address] Care Team Providers Care Plant Health Care Technician Name Role Phone Lorna Bal APRN Primary Care Provider [phone] Reason for Referral * Diagnostic Test (Routine) - Pending Review Specialty Diagnoses / Procedures Referred By Contmonica t Referred To Contact Radiology Diagnoses 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 Abscess Contracture of left elbow Closed fracture of distal end of right femur with routine healing, unspecified fracture morphology, subsequent encounter Right leg pain Presence of intrathecal baclofen pump Spasticity Neuromuscular scoliosis of thoracolumbar region Edema leg Acquired dysplasia of hip, unspecified laterality Traumatic brain injury, without loss of consciousness, sequela Procedures IR Drain Check/Change/Remove Jamaal Jenkins, [facility] [place] [address] [facility] [place] [address] Referral ID Status Reason Start Date Expiration Date Visits Requested Visits Authorized [id number] Pending Review Specialty Service Requested 08/25/2022 02/26/2024 1 1 Reason for Visit * Diagnostic Test (Routine) - Pending Review Specialty Diagnoses / Procedures Referred By Contac t Referred To Contact Radiology Diagnoses 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 Abscess Contracture of left elbow Closed fracture of distal end of right femur with routine healing, unspecified fracture morphology, subsequent encounter Right leg pain Presence of intrathecal baclofen pump Spasticity Neuromuscular scoliosis of thoracolumbar region Edema leg Acquired dysplasia of hip, unspecified laterality Traumatic brain injury, without loss of consciousness, sequela Procedures IR Drain Check/Change/Remove Jamaal Jenkins, [facility] [place] [address] [facility] [place] [address] Referral ID Status Reason Start Date Expiration Date Visits Requested Visits Authorized [id number] Pending Review Specialty Service Requested 08/25/2022 02/26/2024 1 1 Encounter Details Date Type Department Care Team (Latest Contact Info) Description 09/10/2022 10:49 AM EDT - 09/10/2022 11:59 PM EDT Hospital [place] [address] Jamaal Jenkins, [facility] [place] [address] 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; Abscess; Contracture of left elbow; Closed fracture of distal end of right femur with routine healing, unspecified fracture morphology, subsequent encounter; Right leg pain; Presence of intrathecal baclofen pump; Spasticity; Neuromuscular scoliosis of thoracolumbar region; Edema leg; Acquired dysplasia of hip, unspecified laterality; Traumatic brain injury, without loss of consciousness, sequela Discharge Disposition: Home Social History Tobacco Use Types Packs/Day Years Used Date Smoking Tobacco: Never Smokeless Tobacco: Never Comments:NO SMOKERS IN THE H OME Alcohol Use Standard Drinks/Week Comments No 0 (1 standard drink = 0.6 oz pur e alcohol) [facility] Inpatient Questions Answer Date Recorded Does [...] Sign Reading Time Taken Comments Blood Pressure 106/61 09/10/2022 11:39 AM EDT Pulse 90 09/10/2022 11:39 AM EDT Temperature 35.6 ??C (96 ??F) 09/10/2022 11:39 AM EDT Respiratory Rate 16 09/10/2022 11:39 AM EDT Oxygen Saturation 100% 09/10/2022 11:39 AM EDT Inhaled Oxygen Concentration - - Weight - - Height - - Body Mass Index - - documented in this encounter Discharge Instructions * Discharge Instructions* Reji Qiu RN - 09/10/2022 12:55 PM EDT [facility] Vascular and Interventional Radiology Discharge Instructions For Your Puncture Site Activity [...] is during regular office hours, please call [phone]. If it is after regular office hours, or on weekends or holidays, please call [phone] and ask to speak to the [employer] Crew Chief industrial education instructor for Interventional Radiology. You may resume your regular diet as [...] 10 mg by mouth 3 times daily. doxycycline (Vibramycin) 100 mg capsule Take 1 capsule by mouth 2 times daily for 90 days. 60 capsule 2 08/13/2022 11/11/2022 nystatin (MYCOSTATIN) 100,000 unit/gram Powder Apply 1 each topically 2 times daily. 06/02/2022 10/29/2023 documented as of this encounter Progress Notes * Reji Qiu RN - 09/05/2022 10:59 AM EDT [facility] Name: Tana Cavazos Date of : 1995 AGE: 27 y.o. [address]: [address] [place] [address] Phone: [phone] (home) Mobile: Telephone Information: Referring Provider: Jamaal Jenkins REASON FOR VISIT: Planned procedure: Routine drain check Labs to be performed day of procedure: No labs Sedation: No Sedation Prophylactic antibiotic : None Contrast: Omnipaque Additional medications for procedure: Lidocaine Planned access site: Existing lumbar drains Position: Prone Consent: Scanned Medications to discontinue (and days held): None Case Urgency:: G1-Elective Outpatient intervention within 4-7 days Order Questions Answers Where will study be performed? [facility] Radiology [120] Reason for exam and clinical history: Paraspinal abscesses status post drain palcement. Persistent collections. Drain repositioned 08/25. Routine 3-week drain check. Is the patient ? No Is the patient on anticoagulant / antiplatelet therapy ? No Allergies Allergen Reactions ??? Fluoxetine Other (See Comments) HIVES, HEART RACES ??? Tegaderm [Transparent Dressings] Itching and Dermatitis Please use [id number] ??? Penicillins Pertinent PMH: Patient Active Problem [...] Drain removal x 2 ??Local only ?? 1224 to procedure room 1 via stretcher. Onto table right side down. Safety strap in place. Meds perprotocol. Laboratory Results: Lab Results Component Value Date CREATININE 0.25 (L) 08/11/2022 Lab Results Component Value Date K 4.0 08/11/2022 Lab Results Component Value Date PLATELET 387 (H) 08/11/2022 documented in this encounter H&P Notes * Barron Hayes MD - 09/04/2022 1:16 PM EDT Images from the original note were not included. INTERVENTIONAL RADIOLOGY FOCUSED H&P and PRE-PROCEDURE NOTE: PCP: Lorna Bal APRN Referring Provider: Dr. Jenkins Planned Procedure: Planned procedure: Routine drain check Procedure Indication: Paraspinal fluid collections Procedure Request: Procedure request received through the Interventional Radiology eDH order queue. Presenting Diagnosis/ Complaint: Tana Cavazos is a 27 y.o. female with history of TBI, spastic quadriplegia, CP, scoliosis with admission for lumbar subcutaneous abscess and E. coli bacteremia status post lumbar paraspinal drain placement on 07/24. Last drain check on 08/25 demonstrates more caudal drainage catheter with persistent collection in communication with sacral screw, drain left in place.The more cranial drainage catheter within undrained paraspinal collection. This catheter was exchanged and repositioned into the undrained components. Patient now presenting for routine follow-up. Past Medical/Surgical History: Patient Active Problem List Diagnosis Code ??? [...] All Drainage Procedures 06/25/2022 Mich Martino MD [facility] INTERVENTIONL RAD ??? IR ALL DRAINAGE PROCEDURES 07/04/2022 IR All Drainage Procedures 07/04/2022 Mich Martino MD [facility] INTERVENTIONL RAD ??? IR ALL DRAINAGE PROCEDURES 07/24/2022 IR All Drainage Procedures 07/24/2022 Anurag Kumar MD [facility] INTERVENTIONL RAD ??? IR DRAIN CHECK/CHANGE/REMOVE 07/01/2022 IR Drain Check/Change/Remove 07/01/2022 Jamaal Jenkins, DO [facility] INTERVENTIONL RAD ??? IR DRAIN CHECK/CHANGE/REMOVE 08/11/2022 IR Drain Check/Change/Remove 08/11/2022 Piter Self MD [facility] INTERVENTIONL RAD ??? IR DRAIN CHECK/CHANGE/REMOVE 08/25/2022 IR Drain Check/Change/Remove 08/25/2022 Jamaal Jenkins P, DO [facility] INTERVENTIONL RAD ??? PRO APPLY OF HIP CASTS, TWO LEGS 08/15/2010 CAST APPLICATION, HIP SPICA, BOTH LEGS performed by BARRERA OLIVER at [facility] MAIN OR ? ? PRO I&D, POST SPINE, LUMB/SACR/LUMBOSAC N/A 05/20/2014 @I & D, OPEN, DEEP ABSCESS, LUMBAR, SACRAL, LUMBOSACRAL performed by Freddy Isbell MD at [facility] MAIN OR ? ? PRO I&D, POST SPINE, LUMB/SACR/LUMBOSAC N/A 05/26/2014 @I & D, OPEN, DEEP ABSCESS, LUMBAR, SACRAL, LUMBOSACRAL performed by Freddy sIbell MD at [facility] MAIN OR ??? PRO IMPACT TOOTH REMOV COMP BONY N/A 06/14/2018 SURGICAL EXTRACTIONS, REMOVAL OF IMPACTED TOOTH, COMPLETELY BONY (WRVU 1.93) performed by Keith Cotton MD at [facility] OSC ??? PRO OSTEOTOMY FEMUR SHAFT/SUPRACONDY 08/15/2010 ??OSTEOTOMY, FEMUR SHAFT OR SUPRACONDYLAR W/O FIXATION performed by BARRERA OLIVER at [facility] OR ??? PRO RECONSTRUC HIP SOCKET, RESEC FEM HEAD 08/15/2010 ??ACETABULOPLASTY (GIRDLESTONE), RESECTION FEMORAL HEAD, BILATERAL performed by BARRERA OLIVER [facility] OR ??? PRO REMOVAL DEEP IMPLANT 08/15/2010 REMOVAL IMPLANT, DEEP, BRUNO performed by BARRERA OLIVER at [facility] MAIN OR ??? PRO REMOVAL ERUPTED TOOTH WITH ELEVATION OF MUCOPERIOSTEAL FLAP N/A 06/14/2018 SURGICAL EXTRACTIONS REQUIRING ELEVATION OF MUCOPERIOSTEAL FLAP AND REMOVAL OF BONE OR SECTION OF TOOTH (WRVU 1.09) performed by Keith Cotton MD at [facility] OSC ??? PRO REMOVE INFUSN DEVICE/PUMP N/A 05/11/2014 REMOVAL OF SPINE INFUSION PUMP performed by Jamaal Samuel MD at [facility] MAIN OR ??? PRO REMOVE SPINAL CANAL CATHETER N/A 05/11/2014 REMOVAL OF INTRATHECAL OR EPIDURAL CATHETER performed by Jamaal Samuel MD at [facility] MAIN OR ??? PRO REPR, DURAL/CSF LEAK, NOT REQ LAMINECTOMY N/A 05/20/2014 @REPAIR DURAL\CSF LEAK,NOT REQUIRING LAMINECTOMY performed by Freddy Isbell MD at [facility] MAIN OR Medications: Current Outpatient Medications on File Prior to Encounter Medication Sig Dispense Refill ??? doxycycline (Vibramycin) [...] facility-administered medications on file prior to encounter. Allergies: Fluoxetine, Tegaderm [transparent dressings], and Penicillins Social History and Habits: Social History Socioeconomic History ??? Marital status: Single Spouse name: Not on file ??? Number of children: Not on file ??? Years of education: Not on file ??? Highest education level: Not on file Occupational History ??? Not on file Tobacco Use ??? Smoking status: Never ??? Smokeless tobacco: Never ??? Tobacco comments: NO SMOKERS IN THE HOME Vaping Use ??? Vaping Use: Never used Substance and Sexual Activity ??? Alcohol use: No ??? Drug use: No ??? Sexual activity: Not on file Other Topics Concern ??? Not on file Social History Narrative ??? Not on file Social Determinants of Health Financial Resource Strain: Not on file Food Insecurity: Not on file Transportation Needs: Not on file Physical Activity: Not on file Housing Stability: Not on file Significant Family History: Family History Problem Relation Age of Onset ??? Cancer Maternal Grandmother ??? Heart Disease Maternal Grandfather Pertinent ROS: as per HPI Labs: Lab Results Component Value Date WBC 6.2 08/11/2022 HCT 37.4 08/11/2022 PLATELET 387 (H) 08/11/2022 BUN 9 08/11/2022 CREATININE 0.25 (L) 08/11/2022 ALKPHOS 211 (H) 08/11/2022 AST 19 08/11/2022 ALBUMIN 4.2 08/11/2022 BILIDIR <0.1 07/07/2022 BILITOT <0.2 (L) 08/11/2022 ALT 26 08/11/2022 PROT 8.0 08/11/2022 K 4.0 08/11/2022 Imaging: Physical Exam: Pending (to be performed in angio the day of procedure) ASA: Pending (to be assessed in angio the day of procedure) Mallampati Class: Pending (to be assessed in angio the day of procedure) Assessment: 27 y.o. female with two lumbar paraspinal drains presenting for drain check. Plan: Planned procedure: Routine drain check Labs to be performed day of procedure: No labs Sedation: No Sedation Prophylactic antibiotic : None Contrast: Omnipaque Additional medications for procedure: Lidocaine Planned access site: Existing lumbar drains Position: Prone Consent: Scanned Medications to discontinue (and days held): None Case Urgency:: G1-Elective Outpatient intervention within 4-7 days 09/04/2022 documented in this encounter Plan of Treatment Upcoming Encounters Date Type Department Care Team (Late st Contact Info) Description 11/19/2023 2:30 PM EDT TH Visit (TeleHealth) [place] [phone] Lilli Joy APRN [facility] [place] [address] 11/30/2023 12:50 PM EDT Appointment Radiology at [facility] [place] [phone] 12/03/2023 12:30 PM EDT Office Visit Infectious Disease at [facility] [address] Hollie Ambriz MD [facility] DR INFECTIOUS [place] [address] documented as of this encounter Procedures Procedure Name Priority Date/Time Associated Diagnosis Comments IR DRAIN CHECK/CHANGE/REMOV E Routine 09/10/2022 12:58 PM EDT 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 Abscess Contracture of left elbow Closed fracture of distal end of right femur with routine healing, unspecified fracture morphology, subsequent encounter Right leg pain Presence of intrathecal baclofen pump Spasticity Neuromuscular scoliosis of thoracolumbar region Edema leg Acquired dysplasia of hip, unspecified laterality Traumatic brain injury, without loss of consciousness, sequela documented in this encounter Results * IR Drain Check/Change/Remove (09/10/2022 12:58 PM EDT) Anatomical Region Laterality Modality Head X-Ray Angiograph y Narrative 09/10/2022 3:07 PM EDT Preoperative Diagnosis: Percutaneous drain follow up Postoperative Diagnosis: Same Procedure Performed: Fluoroscopic drain check, removal of drain Estimated Blood Loss: Less than 5 cc. Operators: Mich Martino MD, Attending Fluoroscopy time: ?? Please see IR Tech notes for Time/dose. Cefazolin/ cefuroxime was not ordered for antimicrobial prophylaxis as it is not indicated or strongly backed by the medical literature. Anesthesia: 1. None. The risks, benefits, and alternatives to the procedure were explained to the patient's family, who then gave written consent which was placed in the chart. ??The patient could not give informed consent at this time due to current medical condition. Appropriate time-out was performed prior to the procedure. Description of Procedure: ?? Pt's previous symptoms prior to drain placement have resolved, no new symptoms, no fevers. ??Drain output is minimal (<5cc/day) The existing drains were prepped and draped in the usual sterile fashion. ?? Contrast was carefully injected into the superior drain demonstrating no significant residual cavity. ??The drain was cut to release pigtail. ??Using gentle traction, the drain and retention suture were removed. Contrast was carefully injected into the inferior drain demonstrating no significant residual cavity. ??The drain was cut to release pigtail. ??Using gentle traction, the drain and retention suture were removed. The patient tolerated the procedure well. Dressing was placed. Findings: Pt doing well with minimal drain output, no fevers or new symptoms. Impression: No significant residual cavity associated with either the upper or lower drain. ??Uneventful removal of percutaneous drain. ?? I, the attending interventional radiologist performed the entire procedure. ?? Jamaal Jenkins DO IMG IR ORDERABLES documented in this encounter Visit Diagnoses Diagnosis 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 Acute osteomyelitis, other specified site Abscess Cellulitis and abscess of unspecified site Contracture of left elbow Contracture of upper arm joint Closed fracture of distal end of right femur with routine healing, unspecified fracture morphology, subsequent encounter Right leg pain Pain in limb Presence of intrathecal baclofen pump Spasticity Abnormal involuntary movements Neuromuscular scoliosis of thoracolumbar region Other kyphoscoliosis and scoliosis Edema leg Edema Acquired dysplasia of hip, unspecified laterality Traumatic brain injury, without loss of consciousness, sequela documented in this encounter Administered Medications Inactive Administered Medications - up to 3 most recent administrations Medication Order MAR Action Action Date Dose Rate Site iohexoL (Omnipaque) (350 mg/mL) solution 1-400 mL 1-400 mL, Other, ONCE, 1 dose, On Thu09/10/22 at 1200, For intra-procedural use by proceduralist., Angio/IR (Intra-Procedure), Routine Given 09/10/2022 12:48 PM EDT 10 mLs documented in this encounter Care Teams Plant Health Care Technician Relationship Specialty Start Date End Date Lorna Bal APRN [address] [place] [address] PCP - General Family Medicine 05/27/18 documented as of this encounter
--- OUTSIDE RECORDS SUMMARY | 2023-11-09 18:12 | XMS_ITS | Encounter Summary ---
Author Organization [facility] [place] [address] Care Team Providers Care Edge Kitter Name Role Phone Lorna Bal APRN Primary Care Provider [phone] Encounter Details Date Type Department Care Team (Late st Contact Info) Description 09/24/2022 Telephone [place] [phone] Valentina Stanton Social History Tobacco Use Types [...] EDT TH Visit (TeleHealth) [place] [address] Lilli Joy APRN [facility] [place] [address] 11/30/2023 12:50 PM EDT [place] [phone] 12/03/2023 12:30 PM EDT Office [place] [phone] Hollie Ambriz MD [facility] [place] [address] documented as of this encounter Visit Diagnoses Not on filedocumented in this encounter Care Teams Edge Kitter Relationship Specialty Start Date End Date Lorna Bal APRN [address] [place] [address] PCP - General Family Medicine 05/27/18 documented as of this encounter
--- OUTSIDE RECORDS SUMMARY | 2023-11-09 18:12 | XMS_ITS | Encounter Summary ---
Author Organization [facility] [place] [address] Care Team Providers Care Lunchroom Worker Name Role Phone Lorna Bal APRN Primary Care Provider [phone] Encounter Details Date Type Department Care Team (Late st Contact Info) Description 09/08/2022 Telephone [place] [address] Sergey Keane MD [facility] [place] [address] Social History Tobacco Use Types Packs/Day Years [...] encounter Miscellaneous Notes * Telephone Encounter - Sergey Keane MD - 09/08/2022 1:49 PM EDT Images from the original note were not included. Received a message from Mrs Cavazos mother and HCP stating she wanted to talk to a physician about Mrs Cavazos plan moving forward. Patient was recently seen at [facility] for a second opinion. I had the opportunity to speak with the attending physician Dr Patel on 09/03. At the time we discussed Mrs Cavazos clinical course and therapies provided here at [facility]. After our conversation she mentioned that she didn't have any other different recommendations for now in terms of treatment and that further care from infectious disease partcan be continued whenever the patiens caregiver decides. I explained this to Tana's mother, currently she continues on doxycycline as stated in our prior visit. With no signs or symptoms of active infection. She also has drains in placed and seen periodically by IR. Plan for now is to see Mrs Cavazos in ID clinic next Thursday when we will reassess current And future plans. Sergey Doan MD Infectious Disease Fellow documented in this encounter Plan of Treatment Upcoming Encounters Date Type Department Care Team (Late st Contact Info) Description 11/19/2023 2:30 PM EDT TH Visit (TeleHealth) [place] [phone] Lilli Joy APRN [facility] [place] [address] 11/30/2023 12:50 PM EDT [place] [phone] 12/03/2023 12:30 PM EDT Office [place] [phone] Hollie Ambriz MD [facility] [place] [address] documented as of this encounter Visit Diagnoses Not on filedocumented in this encounter Care Teams Lunchroom Worker Relationship Specialty Start Date End Date Lorna Bal APRN [address] [place] [address] PCP - General Family Medicine 05/27/18 documented as of this encounter
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
--- OUTSIDE RECORDS SUMMARY | 2023-11-09 18:12 | XMS_ITS | Encounter Summary ---
[place] [address] Care Team Providers Care Transverse Abdominal Muscle Surgeon Name Role Phone Lorna Bal APRN Primary Care Provider [phone] Encounter Details Date Type Department Care Team (Latest Contact Info) Description 09/26/2022 Travel Social History Tobacco Use Types Packs/Day Years Used Date Smoking Tobacco: Never Smokeless Tobacco: Never Comments:NO SMOKERS IN THE H OME Alcohol Use Standard Drinks/Week Comments No 0 (1 standard drink = 0.6 oz pur e alcohol) [facility] Inpatient Questions Answer Date Recorded Does [...] EDT TH Visit (TeleHealth) Infectious Disease [place] [phone] Lilli Joy [place]N [facility] [place] [address] 11/30/2023 12:50 PM EDT [place] [address] 12/03/2023 12:30 PM EDT Office [place] [address] Hollie Ambriz MD [facility] [place] [address] documented as of this encounter Visit Diagnoses Not on filedocumented in this encounter Care Teams Transverse Abdominal Muscle Surgeon Relationship Specialty Start Date End Date Lorna Bal APRN [address] [place] [address] PCP - General Family Medicine 05/27/18 documented as of this encounter
--- OUTSIDE RECORDS SUMMARY | 2023-11-09 18:12 | XMS_ITS | Encounter Summary ---
Author Organization [facility] [place] [address] Care Team Providers Care Forest Ranger Technician Name Role Phone Lorna Bal APRN Primary Care Provider [phone] Encounter Details Date Type Department Care Team (Late st Contact Info) Description 09/24/2022 Telephone [place] [id number] Sergey Keane MD [facility] [place] [address] Social History Tobacco Use Types Packs/Day Years Used Date Smoking Tobacco: Never Smokeless Tobacco: Never Comments:NO SMOKERS IN THE H OME Alcohol Use Standard Drinks/Week Comments No 0 (1 standard drink = 0.6 oz pur e alcohol) [facility] Inpatient Questions Answer Date Recorded [...] encounter Miscellaneous Notes * Telephone Encounter - Jamar Dasilva MD - 09/24/2022 2:07 PM EDT Spoke to Javed, Discussed Tana's symptoms. SOunds probably that there is a reaccumulation of fluid. Suggested calling our IR here to see if they can replace drain, however, also discussed that it may be best if Tana is clinically stable to go to her appt in [place] tomorrow with NSG to show them the lesions and see if they can do something about it. I discussed I had limited ability to assist and that a change of antibiotics without new cultures and drainage was not a great idea and the I would be happy to work with either IR here or NSG in [place] to assist. Discussed warning signs to present to the ED. I suspect she just has continued inflammation of the hardware and now that the drain is out it is reaccumulating. Likely will need a chronic drain or surgery. This will be up to NSG on [place]. * Telephone Encounter - Maryanne Sarabia RN - 09/24/2022 1:41 PM EDT Patient's Mother, Javed, called. Tana's drains came out a little over a week ago. Her inflammation markers were down then but a CRP drawn at PCP is now over 70 per Mom. She lost a toenail, dry cough,skin is cracking, hair is shedding and has skin reddening and sensitivity. No fever. Mom is wondering if drains should be placed again. She prefers not to go to the ED. Tana has a neurosurgery appt tomorrow in [place]. Mom can be reached at [phone] until 5 pm. Then after 5 pm call Fannie Villarreal [phone]. Note forwarded to Dr. Gerber Dasilva and Dr. Sergey Doan. documented in this encounter Plan of Treatment Upcoming Encounters Date Type Department Care Team (Late st Contact Info) Description 11/19/2023 2:30 PM EDT TH Visit (TeleHealth) [place] [address] Lilli Joy APRN [facility] [place] [address] 11/30/2023 12:50 PM EDT [place] [phone] 12/03/2023 12:30 PM EDT Office [place] [phone] Hollie Ambriz MD [facility] [place] [address] documented as of this encounter Visit Diagnoses Not on filedocumented in this encounter Care Teams Forest Ranger Technician Relationship Specialty Start Date End Date Lorna Bal APRN [address] [place] [address] PCP - General Family Medicine 05/27/18 documented as of this encounter
--- OUTSIDE RECORDS SUMMARY | 2023-11-09 18:13 | XMS_ITS | Encounter Summary ---
Author Organization [facility] [place] [address] Care Team Providers Care Dental Equipment Technician Name Role Phone Lorna Bal APRN Primary Care Provider [phone] Reason for Referral * Diagnostic Test (Routine) [...] sequela Procedures IR Drain Check/Change/Remove Jamaal Jenkins, [facility] [place] [address] [facility] [place] [address] Referral ID Status Reason Start Date Expiration Date Visits Requested Visits Authorized [id number] Pending Review Specialty Service Requested 08/25/2022 02/26/2024 1 1 * Diagnostic Test (Routine) - New Request Specialty Diagnoses / Procedures Referred By Contac t Referred To Contact Radiology Diagnoses 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 Procedures IR Drain Check/Change/Remove Hank [place] PA [facility] [place] [address] [place] [address] Referral ID Status Reason Start Date Expiration Date Visits Requested Visits Authorized [id number] New Request Specialty Service Requested 08/21/2022 02/21/2024 1 1 Reason for Visit * Diagnostic Test (Routine) - New Request Specialty Diagnoses / Procedures Referred By Contac t Referred To Contact Radiology Diagnoses 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 Procedures IR Drain Check/Change/Remove Hank [place] PA [facility] [place] [address] [place] [address] Referral ID Status Reason Start Date Expiration Date Visits Requested Visits Authorized [id number] New Request Specialty Service Requested 08/21/2022 02/21/2024 1 1 Encounter Details Date Type Department Care Team (Latest Contact Info) Description 08/25/2022 12:57 PM EDT - 08/25/2022 11:59 PM EDT Hospital [place] [address] Piter Self MD [facility] [place] [address] 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; Abscess; Contracture of left elbow; [...] on file documented as of this encounter Discharge Instructions * Discharge Instructions* Tegan Snyder RN - 08/25/2022 3:39 PM EDT Images from the original note were not included. INTERVENTIONAL RADIOLOGY DRAIN CARE INSTRUCTIONS Drains help to keep fluid from collecting by removing the extra blood and fluid from under the skinor from an abscess within the body. A drain is temporary. It stays in place until the drainage has slowed down or stopped. Your Provider will decide when each drain should be removed. This is usuallyafter each drain has 30cc or less in 24 hours for 2-3 days in a row. You will then be scheduled for what is called a Sinogram to check and see if the fluid collection has gotten smaller. How do I care for the drains at home? Pin your drain/s to your clothing by using a safety pin through the plastic loop on the top of the bulb. If the drain is not attached to your clothing, it may pull out from under your skin. Also, a drain usually feels more comfortable when it???s attached. To care for the drain at home, you will have to empty the drain, ???strip?? the drain tubing, and change the dressing if applicable. * See the following information on instructions on how to do this. You will go home with a dressing over the insertion site. Usually, Visiting Nurses are set up to show you how to change the dressing and care for the drain. They may teach a family member if they arewilling. The dressing needs to only be change once a week provided there is no leakage around the tube. What problems may I have with my drain? The bulb is not compressed- The bulb may not be squeezed tightly enough, the plug may not be closedsecurely, or the tube has slipped out a bit and is leaking. Follow the instructions on how to emptythe drain. If the bulb remains expanded, then notify your doctor or nurse during business hours. No drainage or sudden decrease in amount of drainage- This may be due to a plug in the drain. Please notify your doctor or nurse during business hours. The tube accidentally falls out- If this happens, place a dry gauze dressing over the drain site and notify your doctor or nurse during business hours. Increased redness, swelling, or heat around the tube insertion site- This may be a sign of infection. Take your temperature: if it is higher than 101F or 38.8C, call your doctor or nurse immediately.Otherwise, notify your doctor or nurse during business hours and keep the dressing clean and dry. How to Empty Your Drain and flush drain Note: Wash your hands thoroughly before emptying your drain(s). Unpin the drain from your clothing. 1. Turn the white stopcock so it is not parallel (in line) with the tubing. 2. Unscrew the tubing with the bulb attached from stopcock. Make sure you keep everything clean. 3. Attach the syringe with sterile saline to the stopcock. 4. Inject saline per MD order, 3-5 cc's. Forward flush only, do not aspirate back. 5. Re-attach the tubing with the bulb to the stopcock. 6. Invert the bulb and pull open the plug. 7. Have the plastic measuring cup from the hospital ready to collect and measure the drainage. Please measure the output at the same time every 24 hours and record the amount. 8. Turn the drain upside down and squeeze the contents of the bulb into the measuring cup. Be sure to empty the bulb as completely as possible. Flush the contents in the toilet. 9. Use the drain output log chart to record the amount of drainage twice a day or any time the bulbis full. Record the total for 24 hours for each drain you have. 10. If you have more than one drain, remember to record the drainage from each drain separately. 11. To prevent infection, do not let the stopper or top of the bottle touch the measuring cup or any other surface. Use one hand to squeeze all of the air from the drain. With the drain still squeezed, use your other hand to replace the top. This creates the suction necessary to remove the fluids from your body. Pin the drain back on your clothing to avoid pulling it out accidently. Wash your hands again. Remember to wash your hands before and after the procedure to reduce the risk of infection. Flushing the Drain: Your doctor may want the drain to be flushed once or twice daily to keep the fluid from plugging the drain. Flush the drain with 3-5 cc daily with the syringes supplied to you. FORWARD FLUSH ONLY, DO NOT ASPIRATE BACK. When to call the Interventional Radiology Department: Please call with any questions or concerns. If it is during regular office hours, please call [phone]. If it is after regular office hours, or on weekends or holidays, please call [phone] and ask to speak to the Wet Pour Mixer cash on delivery clerk for Interventional Radiology. XX You have received medication during your procedure to help lessen anxiety and keep you comfortable. These medications affect judgement and reaction time. We [...] occurs, please contact your M. D. Revised 02/10/19 Drainage Record NAME: Date of Surgery: Date: Time: If more than one drain, which one: Drainage Amount (per drain) Total Amount (per drain; in 24 hours) documented in this encounter Medications at Time [...] as of this encounter Progress Notes * Tegan Snyder RN - 08/21/2022 3:20 PM EDT [facility] NURSING DATABASE Name: Tana Cavazos Date of : 1995 AGE: 27 y.o. Address: [address] [place] [id number] Phone: [phone] (home) Mobile: Telephone Information: Referring Provider: Hank [place] REASON FOR VISIT: Order Questions Answers Where will study be performed? [facility] Radiology [120] Reason for exam and clinical history: Lumbar drain, recurrent soft tissue infections Exam/Procedure requested: Drain leaking at site, repositioned approx 1 week ago due to partial dislodgement Is the patient ? No Does patient require sedation? None Is the patient on anticoagulant / antiplatelet therapy ? No Planned procedure: drain check/exchange/removal Labs to be performed day of procedure: No labs Sedation: No Sedation Prophylactic antibiotic : None Contrast: Omnipaque Additional medications for procedure: Lidocaine; Lido jelly Position: Left Decub Consent: Pending Medications to discontinue (and days held): None Case Urgency:: G2- Elective Outpatient intervention within 8-14 days Allergies Allergen Reactions ??? Fluoxetine Other (See Comments) HIVES, HEART RACES ??? Tegaderm [Transparent Dressings] Itching and Dermatitis Please use [id number] ??? Penicillins Pertinent PMH: Patient Active Problem [...] replacement of #1 10F Local only; tolerated well.?08/25/22 Drain Check x2 - reposition x1 Local Only 1525 to procedure room 1 via stretcher. Onto table side lying. All monitors, O2, safety strap in place. Meds per protocol. Laboratory Results: Lab Results Component Value Date CREATININE 0.25 (L) 08/11/2022 Lab Results Component Value Date K 4.0 08/11/2022 Lab Results Component Value Date PLATELET 387 (H) 08/11/2022 documented in this encounter H&P Notes * Barron Hayes MD - 08/21/2022 11:09 AM EDT Images from the original note were not included. INTERVENTIONAL RADIOLOGY FOCUSED H&P and PRE-PROCEDURE NOTE: PCP: Lorna Bal APRN Referring Provider: Dr. Self Planned Procedure: Lumbar drain check (2 drains) Procedure Indication: Posterior lumbar soft tissue collections Procedure Request: Procedure request received through the Interventional Radiology eDH order queue. Presenting Diagnosis/ Complaint: Tana Cavazos is a 27 y.o. female with with history of TBI, spastic quadriplegia, CP, scoliosis, recently admitted for lumbar subcutaneous abscess and E. coli bacteremia status post drain placement on 07/09 which was dislodged and replaced on 07/24. Additional 8 [place] drain placed into adjacent L2/L3 collection at that time. Patient presenting for drain check. Last drain check 08/11 demonstrating residual abscess cavities, drains left in place. Patient had interval CT lumbar spine on 08/13 demonstrating slightly decreased size of caudal collection and decreased size of cranial collection. Past Medical/Surgical History: Patient Active Problem List [...] All Drainage Procedures 06/25/2022 Mich Martino MD [facility] INTERVENTIONL RAD ??? IR ALL DRAINAGE PROCEDURES 07/04/2022 IR All Drainage Procedures 07/04/2022 Mich Martino MD [facility] INTERVENTIONL RAD ??? IR ALL DRAINAGE PROCEDURES 07/24/2022 IR All Drainage Procedures 07/24/2022 Anurag Kumar MD [facility] INTERVENTIONL RAD ??? IR DRAIN CHECK/CHANGE/REMOVE 07/01/2022 IR Drain Check/Change/Remove 07/01/2022 Jamaal Jenkins, DO [facility] INTERVENTIONL RAD ??? PRO APPLY OF HIP CASTS, TWO LEGS 08/15/2010 CAST APPLICATION, HIP SPICA, BOTH LEGS performed by BARRERA OLIVER at [facility] OR ? ? PRO I&D, POST SPINE, LUMB/SACR/LUMBOSAC N/A 05/20/2014 @I & D, OPEN, DEEP ABSCESS, LUMBAR, SACRAL, LUMBOSACRAL performed by Freddy Isbell MD at [facility] OR ? ? PRO I&D, POST SPINE, LUMB/SACR/LUMBOSAC N/A 05/26/2014 @I & D, OPEN, DEEP ABSCESS, LUMBAR, SACRAL, LUMBOSACRAL performed by Freddy Isbell MD at [facility] OR ??? PRO IMPACT TOOTH REMOV COMP BONY N/A 06/14/2018 SURGICAL EXTRACTIONS, REMOVAL OF IMPACTED TOOTH, COMPLETELY BONY (WRVU 1.93) performed by Keith Cotton MD at [facility] OSC ??? PRO OSTEOTOMY FEMUR SHAFT/SUPRACONDY 08/15/2010 ??OSTEOTOMY, FEMUR SHAFT OR SUPRACONDYLAR W/O FIXATION performed by BARRERA OLIVER at [facility] MAIN OR ??? PRO RECONSTRUC HIP SOCKET, RESEC FEM HEAD 08/15/2010 ??ACETABULOPLASTY (GIRDLESTONE), RESECTION FEMORAL HEAD, BILATERAL performed by BARRERA OLIVER Counts include [facility] beds at the [facility] MAIN OR ??? PRO REMOVAL DEEP IMPLANT 08/15/2010 REMOVAL IMPLANT, DEEP, BRUNO performed by BARRERA OLIVER at [facility] MAIN OR ??? PRO REMOVAL ERUPTED TOOTH WITH ELEVATION OF MUCOPERIOSTEAL FLAP N/A 06/14/2018 SURGICAL EXTRACTIONS REQUIRING ELEVATION OF MUCOPERIOSTEAL FLAP AND REMOVAL OF BONE OR SECTION OF TOOTH (WRVU 1.09) performed by Keith Cotton MD at [facility] OSC ??? PRO REMOVE INFUSN DEVICE/PUMP N/A 05/11/2014 REMOVAL OF SPINE INFUSION PUMP performed by Jamaal Samuel MD at [facility] OR ??? PRO REMOVE SPINAL CANAL CATHETER N/A 05/11/2014 REMOVAL OF INTRATHECAL OR EPIDURAL CATHETER performed by Jamaal Samuel MD at [facility] OR ??? PRO REPR, DURAL/CSF LEAK, NOT REQ LAMINECTOMY N/A 05/20/2014 @REPAIR DURAL\CSF LEAK,NOT REQUIRING LAMINECTOMY performed by Freddy Isbell MD at [facility] OR Medications: Current Outpatient Medications on File [...] day of procedure) Assessment: 27 y.o. female presenting for drain check of 2 lumbar drains. Plan: Planned procedure: drain check/exchange/removal Labs to be performed day of procedure: No labs Sedation: No Sedation Prophylactic antibiotic : None Contrast: Omnipaque Additional medications for procedure: Lidocaine; Lido jelly Position: Left Decub Consent: Pending Medications to discontinue (and days held): None Case Urgency:: G2- Elective Outpatient intervention within 8-14 days 08/21/2022 documented in this encounter Plan of Treatment Upcoming Encounters Date Type Department Care Team (Late st Contact Info) Description 11/19/2023 2:30 PM EDT TH Visit (TeleHealth) [place] [phone] Lilli Joy APRN [facility] [place] [address] 11/30/2023 12:50 PM ED[place] [phone] 12/03/2023 12:30 PM EDT Office [place] [phone] Hollie Ambriz MD [facility] [place] [address] documented as of this encounter Procedures Procedure Name Priority Date/Time Associated Diagnosis Comments IR DRAIN CHECK/CHANGE/REMOVE Routine 08/25/2022 4:12 PM EDT 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 documented in this [...] the entire procedure. ?? Jamaal Jenkins DO [facility] IR ORDERABLES * IR Drain Check/Change/Remove (08/25/2022 4:12 PM EDT) Anatomical Region Laterality Modality Head X-Ray Angiograph y Narrative 08/25/2022 4:17 PM EDT INTERVENTIONAL RADIOLOGY PROCEDURE NOTE Procedure: ?? Drainage Catheter Evaluation ?? Drainage Catheter Evaluation, Exchange, and Repositioning Indication for Procedure: Posterior lumbar soft tissue collections Tana Cavazos is a 27 y.o. female with with history of TBI, spastic quadriplegia, CP, scoliosis, recently admitted for lumbar subcutaneous abscess and E. coli bacteremia status post drain placement on 07/09 which was dislodged and replaced on 07/24. Additional 8 [place] drain placed into adjacent L2/L3 collection at that time. ??Patient presenting for drain check. Last drain check 08/11 demonstrating residual abscess cavities, drains left in place. ??Patient had interval CT lumbar spine on 08/13 demonstrating slightly decreased size of caudal collection and decreased size of cranial collection. Informed Consent: After discussing risks (including infection, trauma / damage to surrounding structures, hemorrhage, non-success, amongst others), and benefits of the procedure, the patient's healthcare proxy consented to the procedure. Monitoring and Sedation Details: The IR nurse was present continuously monitoring ??pulse, pressure, and oxygen saturation. No systemic sedation was utilized. Procedure Events and Technique: A standard time-out was conducted just before the start of the procedure to verify all foster aspects; including the correct patient and planned procedure, procedure location, informed consent, and all relevant critical information, all of which were correct. The patient was positioned left side down on the procedure table. ??The lower back including the previously placed drainage catheters were cleaned and prepped in typical sterile fashion; maximal sterile barrier technique was used throughout. ?? More Caudal Lumbar Drainage Catheter: Chemist Organic fluoroscopic images were obtained. ??Contrast was injected through the catheter and repeat fluoroscopic images were obtained. The drainage catheter was left in place. ??A sterile dressing was applied. ?? More Cranial Lumbar Drainage Catheter: Chemist Organic fluoroscopic images were obtained. ??Contrast was injected through the catheter and repeat fluoroscopic images were obtained. ??The catheter was cut and an 0.035 Amplatz wire was advanced through the catheter. ??The catheter was removed over the wire. ??Exchange was made for a 4-Fr catheter and an 0.035 stiff glide wire, and the deeper component of the collection was selected, confirmed with contrast injection. ??Exchange was made for and 0.035 Amplatz wire and a new 8.5-Fr Loaiza-Serrano drainage catheter was advanced into the collection, confirmed with contrast injection. ??The catheter was sutured in place with 2-0 prolene. ??A sterile dressing was applied. Medications: 2% Lidocaine Jelly Topically Contrast: 20 cc Omnipaque 350, intra-cavitary. Fluoroscopic Time: 1.5 minutes. Estimated Blood Loss: < 5 cc. Complications: ??No immediate. Findings: ?? More Caudal Lumbar Drainage Catheter: Residual cavity, about the size of the pigtail, but tracking along the lumber spine inferiorly and communicating with the sacral screw. ??Drainage catheter left in place. ?? More Cranial Lumbar Drainage Catheter: No significant residual cavity at the drainage catheter site; however, persistent 1 x 3 cm paraspinal collection that did not aspirate upon catheter aspiration. ??Exchange and repositioning of a new drainage catheter into the paraspinal collection. ?? Impression: 1. More caudal drainage catheter with persistent collection and communication with a sacral screw; drainage catheter left in place. 2. More cranial drainage catheter with undrained paraspinal collection; drainage catheter exchanged and repositioned into the undrained component. Resident/Fellow: None. Attending: Dr. Jamaal Jenkins. I, Dr. Jenkins, was present throughout the procedure. Piter Self MD IMG IR ORDERABLES documented in this encounter [...] brain injury, without loss of consciousness, sequela 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 Acute osteomyelitis, other specified site [...] 1-400 mL, Other, ONCE, 1 dose, On Thu08/25/22 at 1445, For intra-procedural use by proceduralist., Angio/IR (Intra-Procedure), Routine Given 08/25/2022 4:13 PM EDT 15 mLs documented in this encounter Care Teams Dental Equipment Technician Relationship Specialty Start Date End Date Lorna Bal APRN [address] [place] [address] PCP - General Family Medicine 05/27/18 documented as of this encounter
--- OUTSIDE RECORDS SUMMARY | 2023-11-09 18:13 | XMS_ITS | Encounter Summary ---
[place] [address] Care Team Providers Care Energy Management Specialist Name Role Phone Lorna Bal APRN Primary Care Provider [phone] Encounter Details Date Type Department Care Team (Latest Contact Info) Description 08/11/2022 Travel Social History Tobacco Use Types Packs/Day [...] EDT TH Visit (TeleHealth) Infectious Disease at [facility] [place] [phone] Lilli Joy APRN [facility] [place] [address] 11/30/2023 12:50 PM EDT [place] [address] 12/03/2023 12:30 PM EDT Office [place] [address] Hollie Ambriz MD [facility] [place] [address] documented as of this encounter Visit Diagnoses Not on filedocumented in this encounter Care Teams Energy Management Specialist Relationship Specialty Start Date End Date Lorna Bal APRN [address] [place] [address] PCP - General Family Medicine 05/27/18 documented as of this encounter
--- OUTSIDE RECORDS SUMMARY | 2023-11-09 18:13 | XMS_ITS | Encounter Summary ---
Author Organization [facility] [place] [address] Care Team Providers Care Photoengraving Sketch Maker Name Role Phone Lorna Bal APRN Primary Care Provider [phone] [phone] Reason for Referral * Diagnostic Test (Routine) - Closed Specialty Diagnoses / Procedures Referred By Contac t Referred To Contact Radiology Diagnoses Abscess Procedures CT Lumbar Spine w Contrast [place] [address] [facility] [place] [address] Referral ID Status Reason Start Date Expiration Date V isits Requested Visits Authorized [id number] Closed Specialty Service Requested 08/12/2022 02/12/2024 1 1 Reason for Visit * Diagnostic Test (Routine) - Closed Specialty Diagnoses / Procedures Referred By Contac t Referred To Contact Radiology Diagnoses Abscess Procedures CT Lumbar Spine w Contrast [place] [address] [facility] [place] [address] Referral ID Status Reason Start Date Expiration Date V isits Requested Visits Authorized [id number] Closed Specialty Service Requested 08/12/2022 02/12/2024 1 1 Encounter Details Date Type Department Care Team (Latest Contact Info) Description 08/13/2022 8:33 AM EDT - 08/13/2022 11:59 PM EDT Hospital [place] [phone] [place] [address] Abscess Discharge Disposition: Home Social History Tobacco Use [...] 90 days. 60 capsule 2 08/13/2022 11/11/2022 levoFLOXacin (Levaquin) 750 mg tablet Take 1 tablet by mouth every morning for 39 days. 40 tablet 07/09/2022 08/17/2022 nystatin (MYCOSTATIN) 100,000 unit/gram Powder Apply 1 each topically 2 times daily. 06/02/2022 10/29/2023 documented as of this encounter Plan of Treatment Upcoming Encounters Date Type Department Care Team (Late st Contact Info) Description 11/19/2023 2:30 PM EDT TH Visit (TeleHealth) [place] [address] Lilli Joy APRN [facility] [place] [address] 11/30/2023 12:50 PM EDT [place] [address] 12/03/2023 12:30 PM EDT Office [place] [address] Hollie Ambriz MD [facility] [place] [address] documented as of this encounter Procedures Procedure Name Priority Date/Time Associated Diagnosis Comments CT LUMBAR SPINE WITH CONTRAST Routine 08/13/2022 9:19 AM EDT Abscess documented in this encounter Results * CT Lumbar Spine w Contrast (08/13/2022 9:19 AM EDT) Anatomical Region Laterality Modality L-spine Computed Tomogra phy Impressions 08/13/2022 4:52 PM EDT Continued interval improvement. Thank you for letting us participate in the care of this patient. ??If you are a health care provider and have any questions regarding this report, please contact the number below. ??For patients who have questions please contact the health ambulatory care nurse that requested your imaging first. ? Narrative 08/13/2022 4:52 PM EDT EXAMINATION: CT LUMBAR SPINE W CONTRAST CLINICAL HISTORY: Low back pain, infection suspected Eval for internal cchnages i abcesses s/p drain placement TECHNIQUE: CT lumbar spine performed after the intravenous administration of contrast. Administered 74.9 ml of OMNIPAQUE 350.00 mg/ml. COMPARISON: Multiple recent comparison CT scans the most recent is dated 07/28/2022. FINDINGS: The severe scoliosis of the lumbar spine with posterior fusion hardware is unchanged. 2 posterior drains in the soft tissues of the lower back again identified. The collection about the inferior drain is slightly smaller. The collection about the more cephalad drain has nearly resolved. No new collections are identified. Procedure Note Jamaal Villafuerte MD - 08/13/2022 EXAMINATION: CT LUMBAR SPINE W CONTRAST CLINICAL HISTORY: Low back pain, infection suspected Eval for internal cchnages i abcesses s/p drain placement TECHNIQUE: CT lumbar spine performed after the intravenous administration ofcontrast. Administered 74.9 ml of OMNIPAQUE 350.00 mg/ml. COMPARISON: Multiple recent comparison CT scans the most recent is dated 07/28/2022. FINDINGS: The severe scoliosis of the lumbar spine with posterior fusion hardwareis unchanged. 2 posterior drains in the soft tissues of the lower back again identified.The collection about the inferior drain is slightly smaller. The collection about the more cephalad drain has nearly resolved. No new collections are identified. IMPRESSION Continued interval improvement. Thank you for letting us participate in the care of this patient. If youare a health care provider and have any questions regarding this report,please contact the number below. For patients who have questions please contactthe health ambulatory care nurse that requested your imaging first. Jamshid Collins MD IMG CT ORDERABLES documented in this encounter Visit Diagnoses Diagnosis Abscess Cellulitis and abscess of unspecified site documented in this encounter Administered Medications Inactive Administered Medications - up to 3 most recent administrations Medication Order MAR Action Action Date Dose Rate Site iohexoL (Omnipaque) (350 mg/mL) solution 0-200 mL 0-200 mL, Intravenous, ONCE PRN, 1 dose, Starting on Thu08/13/22 at 0919, Until Thu08/13/22 at 0920, Per Protocol, Warning Vesicant/Irritant Medication , Radiology Contrast, Routine Given 08/13/2022 9:20 AM EDT 75 mLs documented in this encounter Care Teams Photoengraving Sketch Maker Relationship Specialty Start Date End Date Lorna Bal APRN [address] [place] [address] PCP - General Family Medicine 05/27/18 documented as of this encounter
--- OUTSIDE RECORDS SUMMARY | 2023-11-09 18:13 | XMS_ITS | Encounter Summary ---
[place] [address] Care Team Providers Care Whipped Topping Supervisor Name Role Phone Lorna Bal APRN Primary Care Provider [phone] [phone] Encounter Details Date Type Department Care Team (Latest Contact Info) Description 08/11/2022 2:40 PM EDT Laboratory Appointment Lab [address] [phone] 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; Bacteremia; E coli infection; Soft tissue abscess; Muscle abscess Social History Tobacco Use Types Packs/Day [...] EDT TH Visit (TeleHealth) [place] [phone] Lilli Joy APRN [facility] [place] [address] 11/30/2023 12:50 PM EDT [place] [address] 12/03/2023 12:30 PM EDT Office [place] [address] Hollie Ambriz MD [facility] [place] [address] documented as of this encounter Procedures Procedure Name Priority Date/Time Associated Diagnosis Comments HC VENIPUNCTURE Routine 08/11/2022 2:53 PM EDT 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 Bacteremia E coli infection Soft tissue abscess Muscle abscess HEMOGRAM Routine 08/11/2022 2:53 PM EDT 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 Bacteremia E coli infection Soft tissue abscess Muscle abscess DIFFERENTIAL, AUTOMATED Routine 08/11/2022 2:53 PM EDT 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 Bacteremia E coli infection Soft tissue abscess Muscle abscess HC CBC,PLT & AUTO DIFF Routine 3 2:53 PM EDT 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 Bacteremia E coli infection Soft tissue abscess Muscle abscess COMPREHENSIVE METABOLIC PANEL (NON-FASTING) Routine 08/11/2022 2:53 PM EDT 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 Bacteremia E coli infection Soft tissue abscess Muscle abscess documented in this encounter Results * Differential, Automated (08/11/2022 2:53 PM EDT) Neutrophils % 66.1 % [facility] Neutr Abs (ANC) 4.09 1.70 - 6.10 x10(3)/[facility] Lymphocytes % 26.8 % [facility] Lymphocytes Abs 1.7 0.9 - 3.2 x10(3)/[facility] Monocytes % 5.7 % [facility] Monocyte Abs 0.4 0.3 - 0.9 x10(3)/[facility] Eosinophils % 1.1 % [facility] Eosinophils Abs 0.1 0.0 - 0.4 x10(3)/[facility] Basophils % 0.3 % [facility] Basophils Abs 0.0 0.0 - 0.1 x10(3)/[facility] Immature Gran % 0.00 % [facility] Comment: Immature granulocytes(IG's)percentage and absolute count will include metamyelocytes, myelocytes, and promyelocytes. Blood smears from CBCs yielding IG's will be scanned manually for concordance. If this scan disagrees with the automated IG or if promyelocytes are noted, a manual differential will be performed. Debora Gran Abs 0.00 0.00 - 0.04 x10(3)/[facility] Blood 08/11/2022 2:53 PM EDT 08/11/2022 3:21 PM EDT Narrative Resulting Agency Comment Spec In Lab Jamaal Estrada MD HEMATOLOGY ORDERABL ES [facility] [place] [address] * (ABNORMAL) Hemogram (08/11/2022 2:53 PM EDT) WBC 6.2 4.0 - 9.5 x10(3)/[facility] RBC 4.81 4.00 - 5.21 x10(6)/[facility] Hemoglobin 12.1 11.7 - 15.5 g/dL [facility] Hematocrit 37.4 35.7 - 45.8 % [facility] MCV 77.8(L) 82.6 - 94.[address] [facility] MCH 25.2(L) 27.1 - 32.[address] [facility] MCHC 32.4 31.7 - 35.0 g/dL [facility] Platelets 387(H) 145 - 357 x10(3)/[facility] RDWSD 50.0(H) 37.0 - 46.[address] [facility] RDWCV 17.9(H) 11.5 - 14.1 % [facility] MPV 9.6 7.6 - 12.[address] [facility] nRBC % Auto 0.0 % [facility] nRBC Abs Auto 0.000 0.000 - 0.000 x10(3)/[facility] Blood 08/11/2022 2:53 PM EDT 08/11/2022 3:21 PM EDT Narrative Resulting Agency Comment Spec In Lab Jamaal Estrada MD HEMATOLOGY ORDERABL ES [facility] [place] [address] * (ABNORMAL) Comprehensive metabolic panel (non-fasting) (08/11/2022 2:53 PM EDT) Glucose Lvl 75 65 - 199 mg/dL [facility] Comment:Diabetes: >=200 mg/d L plus symptoms BUN 9 8 - 18 mg/dL [facility] Creatinine 0.25(L) 0.70 - 1.20 mg/dL [facility] Sodium 141 135 - 145 mmol/L [facility] Potassium 4.0 3.5 - 5.0 mmol/L [facility] Comment: Please note: ??Patients with WBC >100,000 may have falsely elevated Potassium levels. ??For accurate Potassium quantification in these patients send serum separator tube (gold top) for subsequent determinations. ??Contact the Clinical Chemistry Laboratory if there are any questions. Chloride 105 98 - 107 mmol/L [facility] CO2 24 22 - 31 mmol/L [facility] Anion Gap 12 5 - 15 mmol/L [facility] Calcium 9.4 8.5 - 10.5 mg/dL [facility] Total Protein 8.0 6.1 - 8.0 g/dL [facility] Albumin 4.2 3.2 - 5.2 g/dL [facility] AST 19 0 - 30 unit/L [facility] ALT 26 0 - 30 unit/L [facility] Alk Phos 211(H) 35 - 105 unit/L [facility] Total Bilirubin <0.2(L) 0.2 - 1.3 mg/dL [facility] Estimated GFR 154 >=60 mL/min/1. 73 m?? [facility] [...] and symptoms in addition to eGFR. Blood 08/11/2022 2:53 PM EDT 08/11/2022 3:21 PM EDT Narrative Resulting Agency Comment Spec In Lab Jamaal Estrada MD CHEMISTRY ORDERABLE S [facility] [place] [address] * (ABNORMAL) CRP, acute inflammation (08/11/2022 2:53 PM EDT) CRP 45.8(H) <=4.9 mg/L [facility] Blood 08/11/2022 2:53 PM EDT 08/11/2022 3:21 PM EDT Narrative Resulting Agency Comment Spec In Lab Jamaal Estrada MD CHEMISTRY ORDERABLE S [facility] [place] [address] documented in this encounter Visit Diagnoses Diagnosis 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 Acute osteomyelitis, other specified site Bacteremia E coli infection Other and unspecified Escherichia coli (E. coli) Soft tissue abscess Cellulitis and abscess of other specified site Muscle abscess Other disorder of muscle, ligament, and fascia documented in this encounter Care Teams Whipped Topping Supervisor Relationship Specialty Start Date End Date Lorna Bal APRN [address] [place] [address] PCP - General Family Medicine 05/27/18 documented as of this encounter
--- OUTSIDE RECORDS SUMMARY | 2023-11-09 18:13 | XMS_ITS | Encounter Summary ---
Author Organization [facility] [place] [address] Care Team Providers Care Contract Paralegal Name Role Phone Lorna Bal APRN Primary Care Provider [phone] [phone] Reason for Referral * Diagnostic Test (Routine) - New Request Specialty Diagnoses / Procedures Referred By Karlo t Referred To Contact Radiology Diagnoses 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 Procedures IR Drain Check/Change/Remove Hank Nunez [place] [facility] [place] [address] [place] [address] Referral ID Status Reason Start Date Expiration Date Visits Requested Visits Authorized [id number] New Request Specialty Service Requested 08/21/2022 02/21/2024 1 1 Encounter Details Date Type Department Care Team (Late st Contact Info) Description 08/21/2022 Orders [place] [address] Hank Nunez [place] [facility] [place] [address] 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 Social History Tobacco Use [...] EDT TH Visit (TeleHealth) [place] [address] Lilli Joy [place] [facility] [place] [address] 11/30/2023 12:50 PM EDT Appointment [place] [address] 12/03/2023 12:30 PM EDT Office Visit [place] [address] Hollie Ambriz MD [facility] [place] [address] documented as of this encounter Results * IR Drain Check/Change/Remove (08/25/2022 4:12 PM [...] dislodged and replaced on 07/24. Additional 8 Nigerian drain placed into adjacent L2/L3 collection at [...] throughout. ?? More Caudal Lumbar Drainage Catheter: Sales Broker fluoroscopic images were obtained. ??Contrast was injected through the catheter and repeat fluoroscopic images were obtained. The drainage catheter was left in place. ??A sterile dressing was applied. ?? More Cranial Lumbar Drainage Catheter: Sales Broker fluoroscopic images were obtained. ??Contrast was injected [...] of consciousness, sequela documented in this encounter Care Teams Contract Paralegal Relationship Specialty Start Date End Date Lorna Bal APRN [address] [place] [address] PCP - General Family Medicine 05/27/18 documented as of this encounter
--- OUTSIDE RECORDS SUMMARY | 2023-11-09 18:13 | XMS_ITS | Encounter Summary ---
Author Organization [facility] [place] [address] Care Team Providers Care Motor Pool Driver Name Role Phone Lorna Bal APRN Primary Care Provider [phone] [phone] Encounter Details Date Type Department Care Team (Late st Contact Info) Description 09/03/2022 Notes Only Infectious Disease at [facility] [place] [phone] Mesha Mckeon, RN Social History Tobacco Use Types Packs/Day [...] as of this encounter Progress Notes * Mesha Mckeon, RN - 09/03/2022 11:59 PM EDT This staff writer received called from patient's mom about concerns about her daughter's drains. She reported that they have stopped draining and was wondering how long we were keeping it in. I instructed her to call IR for a drain check. Mom verbalized understanding. She also stated that she took her to [place] for a second opinion. That doctor in [place] was concerned about pt and wanted a call back as well. This staff writer sent inbasket and routed secretaries notes from the Doctor in [place] to Shawn [place]. Mom is very concerned about her daughters infection. Her end date is on 09/04. documented in this encounter Plan of Treatment Upcoming Encounters Date Type Department Care Team (Late st Contact Info) Description 11/19/2023 2:30 PM EDT TH Visit (TeleHealth) [place] [address] Lilli Joy [place] [address] 11/30/2023 12:50 PM EDT Appointment [place] [address] 12/03/2023 12:30 PM EDT Office Visit [place] [address] Hollie Ambriz MD [facility] [place] [address] documented as of this encounter Visit Diagnoses Not on filedocumented in this encounter Care Teams Motor Pool Driver Relationship Specialty Start Date End Date Lorna Bal APRN [address] [place] [address] PCP - General Family Medicine 05/27/18 documented as of this encounter
--- OUTSIDE RECORDS SUMMARY | 2023-11-09 18:13 | XMS_ITS | Encounter Summary ---
[place] [address] Care Team Providers Care Veterans Employment Representative Name Role Phone Lorna Bal APRN Primary Care Provider [phone] [phone] Encounter Details Date Type Department Care Team (Latest Contact Info) Description 08/13/2022 Travel Social History Tobacco Use Types Packs/Day Years Used Date Smoking Tobacco: Never Smokeless Tobacco: Never Comments:NO SMOKERS IN THE H OME Alcohol Use Standard Drinks/Week Comments No 0 (1 standard drink = 0.6 oz pur e alcohol) [facility] Inpatient Questions Answer Date Recorded Does [...] EDT TH Visit (TeleHealth) Infectious Disease at [facility] [place] [phone] Lilli Joy [place]N [facility] [place] [address] 11/30/2023 12:50 PM EDT [place] [address] 12/03/2023 12:30 PM EDT Office [place] [address] Hollie Ambriz MD [facility] [place] [address] documented as of this encounter Visit Diagnoses Not on filedocumented in this encounter Care Teams Veterans Employment Representative Relationship Specialty Start Date End Date Lorna Bal APRN [address] [place] [address] PCP - General Family Medicine 05/27/18 documented as of this encounter
--- OUTSIDE RECORDS SUMMARY | 2023-11-09 18:13 | XMS_ITS | Encounter Summary ---
Author Organization [facility] [place] [address] Care Team Providers Care Rn Staff Name Role Phone Lorna Bal APRN Primary Care Provider +1 [phone] Encounter Details Date Type Department Care Team (Late st Contact Info) Description 08/07/2022 1:00 PM EDT TH Visit (TeleHealth) Infectious Disease at [facility] [place] [phone] Lilli Joy APRN [facility] [place] [address] 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; Acute hematogenous osteomyelitis, unspecified site; Escherichia coli infection; Pseudomonas infection Social History Tobacco Use Types Packs/Day Years Used Date Smoking Tobacco: Never Smokeless Tobacco: Never Comments:NO SMOKERS IN THE H OME Alcohol Use Standard Drinks/Week Comments No 0 (1 standard drink = 0.6 oz pur e alcohol) [facility] Inpatient Questions Answer Date Recorded Does [...] as of this encounter Progress Notes * Lilli Joy, MORTGAGE BRANCH MANAGER - 08/07/2022 1:00 PM EDT .. INFECTIOUS DISEASE CLINIC - OUTPATIENT FOLLOW UP Chief Complaint: Osteomyelitis and Hardware Infection Microorganism(s): Eschericia coli, Pseudomonas oryzihabitans Antimicrobial Therapy: Levofloxacin 750 mg PO daily History of Present Illness: Tana Cavazos is a 27 y.o. 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 Per chart, patient had a previous admission 06/24 - 07/09/2022 for evaluation and treatment of Eschericia coli Bacteremia and spinal Abscess after presenting to ED with increasing redness and tenderness over the midline surgical scar on her back. Radiographs did not demonstrate evidence of hardware loosening and an US was performed which showed an 8 x 9 mm??subcutaneous fluid collection whic h was evaluated by Orthopaedics who did not recommend aspiration. ??During that admission, she had two attempts at IR drain placement into the lower collection, though it appears that output was minimal on both occasions, and the drain was removed after a couple of days. Cultures obtained from these drainage procedures did not reveal growth of any organisms, however, may have been sterilized due to antecedent receipt of antibiotics. She did have an episode of fever and hypotension, at which point she was noted to have E coli Bacteremia, though it was unclear if the source of Bacteremia was due to the collections. Ultimately, the decision was made to discharge Ms. Cavazos with 6 weeks of Levofloxacin, given concern for hardware involvement of this infection. Unfortunately she developed increased redness and purulent drainage from the same area and and returned to ED on 07/22/2022. A repeat CT of the lumbar spine showed multiple spinal and paraspinal collections. Per ID, the etiology of these collections remained unclear and they asked for surgical consult for source control. ID was oncerned that this progressive process represented a lack of source control, rather than antibiotic failure, and strongly suggested consideration of surgical washout in order to improve the likelihood of eradication of the infection. On 07/24/2022, she underwent IR drain placements; one at L-2/3 collection and the other at the sacroiliac site. Repeat CT lumbar spine demonstrated a slight decrease in the soft tissue collections following interval placed drains. Both the Primary team and Orthopaedics opted for a trial of conservative management with the drains in an attempt to avoid surgery. Therefore, ID recommended continuingoral Levofloxacin and obtaining repeat lumbar imaging near end of therapy. Patient presents today, via Telephone, for her ID interim visit to evaluate her progress and response to long-term antibiotic therapy. A Telehealth visit was planned, however patient does not have the technology to support that today. Interview done with patient's Care Provider, Fannie Villarreal, as patient is non- verbal and developmentally delayed at baseline. ROS: Caregiver, Fannie Villarreal, states patient is doing well and shows no overt signs of: Fevers, chills, night sweats, headache, dizziness chest pain, palpitations shortness of breath, cough abdominal pain, nausea/vomiting, constipation/diarrhea hematuria, dysuria She notes that Tana has evidence of a vaginal yeast infection and is asking for a recommendation for treatment. Medications: Current Outpatient Medications Medication Sig Dispense Refill ??? doxycycline (Vibramycin) [...] Tablet Take 1 tablet by mouth daily. Allergies: Allergies Allergen Reactions ??? Fluoxetine Other (See Comments) HIVES, HEART RACES ??? Tegaderm [Transparent Dressings] Itching and Dermatitis Please use [id number] ??? Penicillins Physical Exam: Deferred Labs: Lab Results Component Value Date WBC 6.2 08/11/2022 HGB 12.1 08/11/2022 HCT 37.4 08/11/2022 MCV 77.8 (L) 08/11/2022 PLATELET 387 (H) 08/11/2022 CRP (mg/L) Date Value 08/11/2022 45.8 (H) 07/31/2022 28.8 (H) 07/28/2022 51.5 (H) 07/28/2022 33.1 (H) 07/27/2022 27.0 (H) 07/26/2022 40.5 (H) 07/22/2022 48.9 (H) 07/08/2022 16.8 (H) 07/06/2022 54.2 (H) 07/03/2022 73.7 (H) 07/01/2022 53.1 (H) 06/28/2022 53.8 (H) 06/24/2022 96.9 (H) CRP High Sens (mg/L) Date Value 06/01/2014 15.4 Lab Results Component Value Date NA 141 08/11/2022 K 4.0 08/11/2022 CL 105 08/11/2022 CO2 24 08/11/2022 BUN 9 08/11/2022 CREATININE 0.25 (L) 08/11/2022 GLUCOSE 75 08/11/2022 GLUCFASTING 95 07/01/2022 CALCIUM 9.4 08/11/2022 ESTGFR 154 08/11/2022 Lab Results Component Value Date ALT 26 08/11/2022 AST 19 08/11/2022 ALKPHOS 211 (H) 08/11/2022 BILITOT <0.2 (L) 08/11/2022 BILIDIR <0.1 07/07/2022 ALBUMIN 4.2 08/11/2022 PROT 8.0 08/11/2022 Microbiology: Reviewed Imaging: Reviewed Assessment: From an ID perspective, the patient is doing well AEB no s/s infection (F/C, night sweats, headaches, dizziness, malaise, etc), no leukocytosis, and CRP = 28.8 this week (decreased from 51.5 last week). In addition, patient is tolerating long-term IV antimicrobial therapy well AEB no SEs and stable lab work. Patient has an EOT appointment scheduled with ID Fellow, Dr. Ronny Doan, 09/10/2022. Plan: 1. Continue Levofloxacin 750 mg PO daily 2. Continue weekly lab work: CBC w/diff, CMP, and CRP 3. OTC antifungal formulation. Apply to vaginal area, externally or internally with applicator for treatment of vaginal yeast infection. Do 2x/day while on antibiotic therapy 4. CT lumbar spine prior to EOT 5. EOT visit is scheduled 6. Patient's ID Attendings, Dr.s Woodard and Thang, apprised of above I spent a total of 30 minutes with the patient, including my review of medical records prior to thevisit, clinical decision making, coordination of care and documentation. Lilli Joy APRN, Infectious Disease 08/07/2022 1:00 PM documented in this encounter Plan of Treatment Upcoming Encounters Date Type Department Care Team (Late st Contact Info) Description 11/19/2023 2:30 PM EDT TH Visit (TeleHealth) [place] [phone] Lilli Joy [address]N [facility] [place] [address] 11/30/2023 12:50 PM EDT Appointment [place] [address] 12/03/2023 12:30 PM EDT Office [place] [phone] Hollie Ambriz MD [facility] [place] [address] documented as of this encounter Visit Diagnoses Diagnosis 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 Acute osteomyelitis, other specified site Acute hematogenous osteomyelitis, unspecified site Escherichia coli infection Other and unspecified Escherichia coli (E. coli) Pseudomonas infection Pseudomonas infection in conditions classified elsewhere and of unspecified site documented in this encounter Additional Health Concerns Infection Onset Date Last Indicated Resolved Time Enterovirus / Rhinovirus 07/28/2022 07/28/2022 8:09 PM EDT documented as of this encounter Care Teams Rn Staff Relationship Specialty Start Date End Date Lorna Bal APRN [address] [place] [address] PCP - General Family Medicine 05/27/18 documented as of this encounter
--- OUTSIDE RECORDS SUMMARY | 2023-11-09 18:13 | XMS_ITS | Encounter Summary ---
[place] [address] Care Team Providers Care Digital Content Coordinator Name Role Phone Lorna Bal APRN Primary Care Provider +1 [phone] Encounter Details Date Type Department Care Team (Latest Contact Info) Description 08/25/2022 Travel Social History Tobacco Use Types Packs/Day Years Used Date Smoking Tobacco: Never Smokeless Tobacco: Never Comments:NO SMOKERS IN THE H OME Alcohol Use Standard Drinks/Week Comments No 0 (1 standard drink = 0.6 oz pur e alcohol) [facility] Inpatient Questions Answer Date Recorded Does [...] EDT TH Visit (TeleHealth) Infectious Disease [place] [phone] Lilli Joy APRN [facility] [place] [address] 11/30/2023 12:50 PM EDT [place] [address] 12/03/2023 12:30 PM EDT Office [place] [address] Hollie Ambriz MD [facility] [place] [address] documented as of this encounter Visit Diagnoses Not on filedocumented in this encounter Care Teams Digital Content Coordinator Relationship Specialty Start Date End Date Lorna Bal APRN [address] [place] [address] PCP - General Family Medicine 05/27/18 documented as of this encounter
--- OUTSIDE RECORDS SUMMARY | 2023-11-09 18:13 | XMS_ITS | Encounter Summary ---
Author Organization [facility] [place] [address] Care Team Providers Care Triage Clinician Name Role Phone Lorna Bal APRN Primary Care Provider +1 -[phone] Encounter Details Date Type Department Care Team (Late st Contact Info) Description 08/06/2022 Telephone [place] [phone] Halima García Social History Tobacco Use Types Packs/Day Years Used Date Smoking Tobacco: Never Smokeless Tobacco: Never Comments:NO SMOKERS IN THE H OME Alcohol Use Standard Drinks/Week Comments No 0 (1 standard drink = 0.6 oz pur e alcohol) [facility] Inpatient Questions Answer Date Recorded [...] * Telephone Encounter - Halima García - 08/06/2022 8:35 AM EDT Shonna from [facility] called. Pt's home healthcare orders need to be restarted and orders need to be placed for weekly lab draw and drainage care. documented in this encounter Plan of Treatment Upcoming Encounters Date Type Department Care Team (Late st Contact Info) Description 11/19/2023 2:30 PM EDT TH Visit (TeleHealth) [place] [address] Lilli Joy APRN [facility] [place] [address] 11/30/2023 12:50 PM EDT [place] [address] 12/03/2023 12:30 PM EDT Office [place] [address] Hollie Ambriz MD [facility] [place] [address] documented as of this encounter Visit Diagnoses Not on filedocumented in this encounter Additional Health Concerns Infection Onset Date Last Indicated Resolved Time Enterovirus / Rhinovirus 07/28/2022 07/28/2022 8:09 PM EDT documented as of this encounter Care Teams Triage Clinician Relationship Specialty Start Date End Date Lorna Bal APRN [address] [place] [address] PCP - General Family Medicine 05/27/18 documented as of this encounter
--- OUTSIDE RECORDS SUMMARY | 2023-11-09 18:13 | XMS_ITS | Encounter Summary ---
[place] [address] Care Team Providers Care Personal Care Attendant Name Role Phone Lorna Bal APRN Primary Care Provider +1 -[phone] Encounter Details Date Type Department Care Team (Late st Contact Info) Description 08/25/2022 Transcribe [place] [phone] Lorna Bal APRN [address] [place], [place] [address] Social History Tobacco Use Types Packs/Day Years [...] EDT TH Visit (TeleHealth[place] [phone] Lilli Joy APRN [facility] [place] [address] 11/30/2023 12:50 PM EDT [place] [address] 12/03/2023 12:30 PM EDT Office [place] [address] Hollie Ambriz MD [facility] [place] [address] documented as of this encounter Visit Diagnoses Not on filedocumented in this encounter Care Teams Personal Care Attendant Relationship Specialty Start Date End Date Lorna Bal APRN [address] [place] [address] PCP - General Family Medicine 05/27/18 documented as of this encounter
--- OUTSIDE RECORDS SUMMARY | 2023-11-09 18:13 | XMS_ITS | Encounter Summary ---
Author Organization [facility] [place] [address] Care Team Providers Care Processing Clerk Name Role Phone Lorna Bal APRN Primary Care Provider +1 -[phone] Encounter Details Date Type Department Care Team (Late st Contact Info) Description 09/03/2022 Telephone [place] [phone] Halima García Social History Tobacco Use Types Packs/Day Years Used Date Smoking Tobacco: Never Smokeless Tobacco: Never Comments:NO SMOKERS IN THE H OME Alcohol Use Standard Drinks/Week Comments No 0 (1 standard drink = 0.6 oz pur e alcohol) [facility] Inpatient Questions Answer Date Recorded Does Anyone [...] * Telephone Encounter - Halima García - 09/03/2022 12:43 PM EDT Please return call to Dr. Ila Hadley from [facility]. Requesting a call back to discuss pt dx, 2nd option and how she can best assist with the pt's care. Dr. Hadley [phone]. Thanks Halima documented in this encounter Plan of Treatment Upcoming Encounters Date Type Department Care Team (Late st Contact Info) Description 11/19/2023 2:30 PM EDT TH Visit (TeleHealth) [place] [address] Lilli Joy APRN [facility] [place] [address] 11/30/2023 12:50 PM ED[place] [address] 12/03/2023 12:30 PM EDT Office [place] [address] Hollie Ambriz MD [facility] [place] [address] documented as of this encounter Visit Diagnoses Not on filedocumented in this encounter Care Teams Processing Clerk Relationship Specialty Start Date End Date Lorna Bal APRN [address] [place] [address] PCP - General Family Medicine 05/27/18 documented as of this encounter
--- OUTSIDE RECORDS SUMMARY | 2023-11-09 18:13 | XMS_ITS | Encounter Summary ---
Author Organization [facility] [place] [address] Care Team Providers Care Diversity Manager Name Role Phone Lorna Bal APRN Primary Care Provider +1 -[phone] Encounter Details Date Type Department Care Team (Late st Contact Info) Description 08/15/2022 Telephone [place] [address] Neva Thorpe, RN Social History Tobacco Use [...] Miscellaneous Notes * Telephone Encounter - Neva Thorpe, RN - 08/15/2022 2:26 PM EDT Pictures received via [facility] of Tana's back wound. This RN spoke with Fannie(Caregiver) and she stated that the area was healing, but is now back to where it was 3 1/2 weeks ago. Area is warm to touch,white drainage, no odor noted. Afebrile. Pt is nonverbal, but acting normally. Doxycycline started this morning as prescribed. Fannie states Dr Woodard requested pictures be sent to him. Will review with Dr Woodard and Dr Jefferson. documented in this encounter Plan of Treatment Upcoming Encounters Date Type Department Care Team (Late st Contact Info) Description 11/19/2023 2:30 PM EDT TH Visit (TeleHealth) [place] [address] [address]N [facility] [place] [address] 11/30/2023 12:50 PM EDT Appointment [place] [address] 12/03/2023 12:30 PM EDT Office Visit [place] [address] Hollie Ambriz MD [facility] [place] [address] documented as of this encounter Visit Diagnoses Not on filedocumented in this encounter Care Teams Diversity Manager Relationship Specialty Start Date End Date Lorna Bal APRN [address] [place], [place] [address] PCP - General Family Medicine 05/27/18 documented as of this encounter
--- OUTSIDE RECORDS SUMMARY | 2023-11-09 18:13 | XMS_ITS | Encounter Summary ---
Author Organization [facility] [place] [address] Care Team Providers Care Substance Abuse Technician Name Role Phone Lorna Bal APRN Primary Care Provider +1 -[phone] Encounter Details Date Type Department Care Team (Late st Contact Info) Description 08/19/2022 Telephone Infectious Disease at [facility] [place] [address] Lilli Joy [place] [facility] [place] [address] Social History Tobacco Use Types Packs/Day Years [...] encounter Miscellaneous Notes * Telephone Encounter - Lilli Joy, FILLING CARRIER - 08/19/2022 8:59 PM EDT S: Received communication from patient's caregiver, Fannie, that the dressing around one of Tana's drains was wet this morning. She is concerned that the tube is dislodged slightly. She also reports that there is zero output in the bulb but that is not new. Per Fannie, the other drain continues to drain 10-20 ml per day and that is the norm. She denies foul odor, redness, or warmth around the tube. The caregiver reports that Tana is doing well, she's as happy as can be, and denies that Tana has fever, chills, sweats, or evidence of any discomfort. She is wondering when the next drain check in IR is. Ms. Cavazos is a 27 y.o. female with PMH of??TBI with spastic quadriplegia, cerebral palsy, non-verbal, developmentally delayed, scoliosis s/p posterior spinal fusion??in??2008 with residual deformity,and bilateral Girdlestone??in??2010,??who was admitted 07/23 - 08/01/2022 due to continued infection of her lumbar spine. She is s/p IR drain placement on 07/24/2022 with one drain at L2/3 collection and the other at the sacroiliac site. Per this provider's Telehealth note of 08/07/2022: Per chart, patient had a previous admission 06/24 - 07/09/2022 for evaluation and treatment of Eschericia coli Bacteremia and spinal Abscess after presenting to ED with increasing redness and tenderness over the midline surgical scar on her back. Radiographs did not demonstrate evidence of hardware loosening and an US was performed which showed an 8 x 9 mm??subcutaneous fluid collection which was evaluated by Orthopaedics who did not recommend aspiration. ??During that admission, she hadtwo attempts at IR drain placement into the lower collection, though it appears that output was minimal on both occasions, and the drain was removed after a couple of days. Cultures obtained from these drainage procedures did not reveal growth of any organisms, however, may have been sterilized dueto antecedent receipt of antibiotics. She did have an episode of fever and hypotension, at which point she was noted to have E coli Bacteremia, though it was unclear if the source of Bacteremia was due to the collections. Ultimately, the decision was made to discharge Ms. Cavazos with 6 weeks of Levofloxacin, given concern for hardware involvement of this infection. Unfortunately??she developed??increased redness and purulent drainage from the same area??and and returned to ED on 07/22/2022. Arepeat CT of the lumbar spine showed multiple [...] the likelihood of eradication of the infection. At the time, both the Primary team and Orthopaedics opted for a trial of conservative management with the drains in an attempt to avoid surgery. Therefore, ID recommended continuing oral Levofloxacinand obtaining repeat lumbar imaging near end of therapy. This was done 08/13/2022 and demonstrated a lmost complete resolution of one collection with a drain in, and shrinkage of the other, with no new collections. Patient and her family were seen in the outpatient ID Clinic that same day and decision made for suppression therapy using Doxycycline. Recommendation at that visit was for patient to continue to follow up with IR for drain check and also with Orthopaedics to consider surgery. Currently, Ms. Cavazos is taking Doxycycline 100 mg po bid. fever, chills, associated with nausea, vomiting profuse diarrhea, confusion decrease urinary volumes O/A: Spinal Abscess with drains in place Long-term antimicrobial therapy P: 1. Continue Doxycycline 100 mg po bid 2. Caregiver advised that if fever, chills, nausea, vomiting, profuse diarrhea, confusion, or decreased urinary volume, to take patient to ED for evaluation 3. Will contact patient's ID Attending, Dr. Woodard regarding next steps. Currently there are no appointments with Orthopaedics or Interventional Radiology 4. This provider will follow-up with patient and her family on 08/20/2022 with plan 5. Patient's ID Attendings, Dr.s Woodard and Thang, apprised of above Lilli Joy APRN, Infectious Disease 08/19/2022 6:00 PM documented in this encounter Plan of Treatment Upcoming Encounters Date Type Department Care Team (Late st Contact Info) Description 11/19/2023 2:30 PM EDT TH Visit (TeleHealth) [place] [address] Lilli Joy APRN [facility] [place] [address] 11/30/2023 12:50 PM EDT [place] [address] 12/03/2023 12:30 PM EDT Office [place] [address] Hollie Ambriz MD [facility] [place] [address] documented as of this encounter Visit Diagnoses Not on filedocumented in this encounter Care Teams Substance Abuse Technician Relationship Specialty Start Date End Date Lorna Bal APRN [address] [place] [address] PCP - General Family Medicine 05/27/18 documented as of this encounter
--- OUTSIDE RECORDS SUMMARY | 2023-11-09 18:13 | XMS_ITS | Encounter Summary ---
Author Organization [place] [address] Care Team Providers Care Record Center Coordinator Name Role Phone Lorna Bal APRN Primary Care Provider [phone] [phone] Reason for Referral * Home Health Care (Routine) - Denied Specialty Diagnoses / Procedures Referred By Contac t Referred To Contact Diagnoses 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 [place] [address] [facility] [address] [place] [phone] Referral ID Status Reason Start Date Expiration Date V isits Requested Visits Authorized [id number] Denied Consult, Test & Treat 08/06/2022 08/06/2023 999 0 Encounter Details Date Type Department Care Team (Late st Contact Info) Description 08/06/2022 [place] [phone] [place] [address] 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 Social History Tobacco [...] EDT TH Visit (TeleHealth) [place] [address] Lilli Joy APRN [facility] [place] [address] 11/30/2023 12:50 PM EDT [place] [address] 12/03/2023 12:30 PM EDT Office Visit Infectious Disease at [place] [phone] Hollie Ambriz MD [facility] [place] [address] Scheduled Referrals Name Type Priority Associated Diagnoses Orde r Schedule Referral to Home Health Outpatient Referral Routine 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 Ordered: 08/06/2022 documented as of this encounter Visit Diagnoses Diagnosis 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 Acute osteomyelitis, other specified site documented in this encounter Additional Health Concerns Infection Onset Date Last Indicated Resolved Time Enterovirus / Rhinovirus 07/28/2022 07/28/2022 8:09 PM EDT documented as of this encounter Care Teams Record Center Coordinator Relationship Specialty Start Date End Date Valeriano, Lorna H, CUSTOMER [employer]ICE [employer] [address] [place] [address] PCP - General Family Medicine 05/27/18 documented as of this encounter
--- OUTSIDE RECORDS SUMMARY | 2023-11-09 18:13 | XMS_ITS | Encounter Summary ---
[place] [address] Care Team Providers Care Parakeet Raiser Name Role Phone Lorna Bal APRN Primary Care Provider [phone] [phone] Reason for Referral * Diagnostic Test (Routine) - New Request Specialty Diagnoses / Procedures Referred By Contac t Referred To Contact Radiology Diagnoses 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 Procedures IR Drain Check/Change/Remove Lucho Burciaga MD [facility] [place] [address] [place] [address] Referral ID Status Reason Start Date Expiration Date Visits Requested Visits Authorized [id number] New Request Specialty Service Requested 07/24/2022 01/25/2024 1 1 Reason for Visit * Diagnostic Test (Routine) - New Request Specialty Diagnoses / Procedures Referred By Contac t Referred To Contact Radiology Diagnoses 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 Procedures IR Drain Check/Change/Remove Lucho Burciaga MD [facility] [place] [address] [address] [place] [address] Referral ID Status Reason Start Date Expiration Date Visits Requested Visits Authorized [id number] New Request Specialty Service Requested 07/24/2022 01/25/2024 1 1 Encounter Details Date Type Department Care Team (Latest Contact Info) Description 08/11/2022 11:53 AM EDT - 08/11/2022 11:59 PM EDT Hospital [place] [address] Anurag Kumar MD [facility] [place] [address] 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 Discharge Disposition: Home Social History Tobacco Use Types Packs/Day Years Used Date Smoking Tobacco: Never Smokeless Tobacco: Never Comments:NO SMOKERS IN THE H OME Alcohol Use Standard Drinks/Week Comments No 0 (1 standard drink = 0.6 oz pur e alcohol) [facility] Inpatient Questions Answer Date Recorded Does [...] Sign Reading Time Taken Comments Blood Pressure 113/67 08/11/2022 1:59 PM EDT Pulse 94 08/11/2022 1:45 PM EDT Temperature 35.8 ??C (96.4 ??F) 08/11/2022 12:38 PM E DT Respiratory Rate 14 08/11/2022 1:59 PM EDT Oxygen Saturation 97% 08/11/2022 1:59 PM EDT Inhaled Oxygen Concentration - - Weight - - Height - - Body Mass Index - - documented in this encounter Discharge Instructions * Discharge Instructions* Carine Daniel RN - 08/11/2022 2:01 PM EDT INTERVENTIONAL RADIOLOGY DRAIN CARE INSTRUCTIONS Drains help [...] is during regular office hours, please call [phone]. If it is after regular office hours, or on weekends or holidays, please call [phone] and ask to speak to the Magnetic Testing Technician environmental permitting specialist for Interventional Radiology. XX You have received [...] 10 mg by mouth 3 times daily. levoFLOXacin (Levaquin) 750 mg tablet Take 1 tablet by mouth every morning for 39 days. 40 tablet 07/09/2022 08/17/2022 nystatin (MYCOSTATIN) 100,000 unit/gram Powder Apply 1 each topically 2 times daily. 06/02/2022 10/29/2023 documented as of this encounter Progress Notes * Carine Daniel RN - 08/11/2022 1:31 PM EDT [facility] NUR[facility] DATABASE Name: Tana Cavazos Date of : 1995 AGE: 27 y.o. Address: [address] [place] [id number] Phone: [phone] (home) Mobile: Telephone Information: Referring Provider: Lucho Burciaga REASON FOR VISIT: Order Questions Answers Where will study be performed? [facility] [120] Reason for exam and clinical history: Sacral and L2-L3 soft tissuel fluid collections Is the patient ? No Is the patient on anticoagulant / antiplatelet therapy ? No Allergies Allergen Reactions ??? Fluoxetine Other (See Comments) HIVES, HEART RACES ??? Tegaderm [Transparent Dressings] Itching and Dermatitis Please use [id number] ??? Penicillins Pertinent PMH: Patient Active Problem [...] ??07/04/2022 Lower back drain placement ??IV Versed??0.5 mg?07/24/22 drain placement x 2 2mg versed, local lidocaine 08/11/22 Drain check??and drain replacement of #1 10F Local only; tolerated well.? 1321 to procedure room IR 4 via stretcher. Onto table left lateral decubatis. All monitors, O2, safety strap in place. Meds per protocol. Laboratory Results: Lab Results Component Value Date CREATININE 0.29 (L) 07/31/2022 Lab Results Component Value Date K 3.9 07/31/2022 Lab Results Component Value Date PLATELET 329 08/01/2022 documented in this encounter H&P Notes * Anamika Todd PA - 08/06/2022 11:10 AM EDT Images from the original note were not included. Interventional Radiology Focused Pre-procedure H&P: PCP: Lorna Bal APRN Referring Provider: Lucho Burciaga Planned procedure: drain check/exchange/removal Procedure indication: routine drain check/exchange/removal IR workflow: Procedure request received through Interventional Radiology eDH order queue. Order Questions Answers Where will study be performed? [facility] Radiology [120] Reason for exam and clinical history: Sacral and L2-L3 soft tissuel fluid collections Is the patient ? No Is the patient on anticoagulant / antiplatelet therapy ? No History of Present Illness: Per chart review, Tana Cavazos is a 27 y.o. female with PMH of TBI, spastic quadriplegia, CP, scoliosis s/p PSF(02/2009) recently admitted for lumbar subcutaneous abscesses and E. coli bacteremia status post IR guided drainage 07/09/2022 (removed and subsequently replaced due to reaccumulation), now also s/p placement of 10Fr into collection adjacent to right SI joint screw as well as 8 Fr into collection adjacent to L2/L3, who presents to Interventional Radiology toundergo routine drain check for these drains. Remainder of patient's medical and surgical history, allergies, medications, and social/family history obtained below as previously outlined in patient's medical record. IR History: Date/Procedure Meds Given/Comments 06/25/22 Low back drain placement Versed 2 mg IV ??07/01/22 drain removed?local ??07/04/2022 Lower back drain placement ??IV Versed??0.5 mg?07/24/22??drain placement x 2 2mg versed, local lidocaine Anticoagulation/Antiplatelet: None listed Labs: Lab Results Component Value Date HGB 9.9 (L) 08/01/2022 HCT 32.2 (L) 08/01/2022 WBC 5.3 08/01/2022 PLATELET 329 08/01/2022 BUN 11 07/31/2022 CREATININE 0.29 (L) 07/31/2022 ALBUMIN 3.6 07/28/2022 BILIDIR <0.1 07/07/2022 BILITOT 0.2 07/28/2022 AST 35 (H) 07/28/2022 ALT 42 (H) 07/28/2022 ALKPHOS 182 (H) 07/28/2022 Allergies: Fluoxetine, Tegaderm [transparent dressings], and Penicillins Imaging: Assessment: 27 y.o. female with lumbar subcutaneous abscesses presenting to Interventional Radiology for routine drain checks. Plan Planned procedure: drain check/exchange/removal Labs to be performed day of procedure: No labs Sedation: No Sedation Prophylactic antibiotic : None Contrast: Omnipaque Additional medications for procedure: Lidocaine, Lido jelly Position: Left Decub Consent: Pending Medications to discontinue (and days held): None Cytopathology presence needed: No Case Urgency:: G2- Elective Outpatient intervention within 8-14 days Medications: Current Outpatient Medications on File Prior to Encounter Medication Sig Dispense Refill ??? polyethylene glycoL (Miralax) 17 gram oral powder packet Take 17 g by mouth daily. ??? levoFLOXacin (Levaquin) 750 mg tablet Take 1 tablet by mouth every morning for 39 days. 40 tablet 0 ??? senna (Senokot) 8.6 mg tablet Take 2 tablets by mouth nightly. ??? nystatin (MYCOSTATIN) 100,000 unit/gram Powder Apply 1 each topically 2 times daily. ??? baclofen (Lioresal) 10 mg tablet Take 10 mg by mouth 2 times daily. ??? multivitamin (THERAGRAN) Tablet Take 1 tablet by mouth daily. No current facility-administered medications on file prior to encounter. Past Medical/Surgical history: Patient Active Problem List [...] All Drainage Procedures 06/25/2022 Mich Martino MD [facility] INTERVENTIONL RAD ??? IR ALL DRAINAGE PROCEDURES 07/04/2022 IR All Drainage Procedures 07/04/2022 Mich Martino MD [facility] INTERVENTIONL RAD ??? IR ALL DRAINAGE PROCEDURES 07/24/2022 IR All Drainage Procedures 07/24/2022 Anurag Kumar MD [facility] INTERVENTIONL RAD ??? IR DRAIN CHECK/CHANGE/REMOVE 07/01/2022 IR Drain Check/Change/Remove 07/01/2022 Jamaal Jenkins, DO [facility] INTERVENTIONL RAD ??? PRO APPLY OF HIP CASTS, TWO LEGS 08/15/2010 CAST APPLICATION, HIP SPICA, BOTH LEGS performed by BARRERA OLIVER at [facility] MAIN OR ? ? PRO I&D, POST SPINE, LUMB/SACR/LUMBOSAC N/A 05/20/2014 @I & D, OPEN, DEEP ABSCESS, LUMBAR, SACRAL, LUMBOSACRAL performed by Freddy Isebll MD at [facility] MAIN OR ? ? PRO I&D, POST SPINE, LUMB/SACR/LUMBOSAC N/A 05/26/2014 @I & D, OPEN, DEEP ABSCESS, LUMBAR, SACRAL, LUMBOSACRAL performed by Freddy Isbell MD at [facility] MAIN OR ??? PRO IMPACT TOOTH REMOV COMP BONY N/A 06/14/2018 SURGICAL EXTRACTIONS, REMOVAL OF IMPACTED TOOTH, COMPLETELY BONY (WRVU 1.93) performed by Keith Cotton MD at [facility] OSC ??? PRO OSTEOTOMY FEMUR SHAFT/SUPRACONDY 08/15/2010 ??OSTEOTOMY, FEMUR SHAFT OR SUPRACONDYLAR W/O FIXATION performed by BARRERA OLIVER at [facility] OR ??? PRO RECONSTRUC HIP SOCKET, RESEC FEM HEAD 08/15/2010 ??ACETABULOPLASTY (GIRDLESTONE), RESECTION FEMORAL HEAD, BILATERAL performed by BARRERA OLIVER [facility] OR ??? PRO REMOVAL DEEP IMPLANT 08/15/2010 REMOVAL IMPLANT, DEEP, BRUNO performed by BARRERA OLIVER at [facility] OR ??? PRO REMOVAL ERUPTED TOOTH WITH ELEVATION OF MUCOPERIOSTEAL FLAP N/A 06/14/2018 SURGICAL EXTRACTIONS REQUIRING ELEVATION OF MUCOPERIOSTEAL FLAP AND REMOVAL OF BONE OR SECTION OF TOOTH (WRVU 1.09) performed by Keith Cototn MD at [facility] OSC ??? PRO REMOVE INFUSN DEVICE/PUMP N/A 05/11/2014 REMOVAL OF SPINE INFUSION PUMP performed by Jamaal aSmuel MD at [facility] MAIN OR ??? PRO REMOVE SPINAL CANAL CATHETER N/A 05/11/2014 REMOVAL OF INTRATHECAL OR EPIDURAL CATHETER performed by Jamaal Samuel MD at [facility] MAIN OR ??? PRO REPR, DURAL/CSF LEAK, NOT REQ LAMINECTOMY N/A 05/20/2014 @REPAIR DURAL\CSF LEAK,NOT REQUIRING LAMINECTOMY performed by Freddy Isbell MD at [facility] MAIN OR Social History and Habits: Social History [...] assessed in IR the day of procedure) 08/06/2022 Anamika Todd PA-C documented in this encounter Plan of Treatment Upcoming Encounters Date Type Department Care Team (Late st Contact Info) Description 11/19/2023 2:30 PM EDT TH Visit (TeleHealth) [place] [phone] Lilli Joy APRN [facility] [place] [address] 11/30/2023 12:50 PM EDT [place] [phone] 12/03/2023 12:30 PM EDT Office [place] [phone] Hollie Ambriz MD [facility] [place] [address] (work) documented as of this encounter Procedures Procedure Name Priority Date/Time Associated Diagnosis Comments IR DRAIN CHECK/CHANGE/REMOVE Routine 08/11/2022 2:08 PM EDT 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 documented in this encounter Results * IR Drain Check/Change/Remove (08/11/2022 2:08 PM EDT) Anatomical Region Laterality Modality Head X-Ray Angiograph y Impressions 08/25/2022 7:33 AM EDT : ?? Drains within abscess cavities. Recommend: continue drain to bulb suction. ??Flush with 5-10 cc NS q12 h. ?? Re-check in 1 week. Attending: I, Dr. Self, was present for the procedure. ?? Narrative 08/25/2022 7:33 AM EDT IR PROCEDURE REPORT : ??Drain check x2, drain exchange x 1 INDICATION: Drains in sacral and L2-L3 soft tissue fluid collections in continuity with spine hardware, on antibiotics. ?? TECHNIQUE: Spot image obtained. ??Contrast injected into upper drain, spot image obtained. ?? Contrast injected into lower drain, spot image obtained. ??10 Fr drain exchanged over Amplatz wire for a new 10 Fr drain with additional sideholes. ?? Patient tolerated the procedures well and there were no immediate complications. Contrast : ??25 cc Omnipaque 350. ??( 25 cc discarded) ? EBL : ??0 cc. FINDINGS: Upper drain within 3 cm residual lobulated collection Lower drain within Anurag Kumar MD IMG IR ORDERABLES documented in this encounter Visit Diagnoses Diagnosis 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 Acute osteomyelitis, other specified site documented in this encounter Administered Medications Inactive Administered Medications - up to 3 most recent administrations Medication Order MAR Action Action Date Dose Rate Site iohexoL (Omnipaque) (350 mg/mL) solution 1-400 mL 1-400 mL, Other, ONCE, 1 dose, On 08/11/22 at 1300, For intra-procedural use by proceduralist., Angio/IR (Intra-Procedure), Routine Given 08/11/2022 1:00 PM EDT 10 mLs lidocaine (Xylocaine) 1% (10 mg/mL) injection 10 mg 10 mg, Subcutaneous, ONCE, 1 dose, On 08/11/22 at 1300, For use in Interventional Radiology (IR) only for procedure with direct provider supervision and verbal order., Angio/IR (Intra-Procedure), Routine Given 08/11/2022 1:48 PM EDT 10 mg documented in this encounter Care Teams Parakeet Raiser Relationship Specialty Start Date End Date Lorna Bal APRN [address] [place] [address] PCP - General Family Medicine 05/27/18 documented as of this encounter
--- OUTSIDE RECORDS SUMMARY | 2023-11-09 18:13 | XMS_ITS | Encounter Summary ---
Author Organization [facility] [place] [address] Care Team Providers Care Scale Tester Name Role Phone Lorna Bal APRN Primary Care Provider [phone] [phone] Encounter Details Date Type Department Care Team (Late st Contact Info) Description 08/07/2022 Telephone [place] [phone] Mesha Mckeon, RN Social History Tobacco Use [...] EDT TH Visit (TeleHealth) [place] [address] Lilli Joy APRN [facility] [place] [address] 11/30/2023 12:50 PM ED[place] [phone] 12/03/2023 12:30 PM EDT Office [place] [phone] Hollie Ambriz MD [facility] [place] [address] documented as of this encounter Visit Diagnoses Not on filedocumented in this encounter Additional Health Concerns Infection Onset Date Last Indicated Resolved Time Enterovirus / Rhinovirus 07/28/2022 07/28/2022 8:09 PM EDT documented as of this encounter Care Teams Scale Tester Relationship Specialty Start Date End Date Lorna Bal APRN [address] [place] [address] PCP - General Family Medicine 05/27/18 documented as of this encounter
--- OUTSIDE RECORDS SUMMARY | 2023-11-09 18:13 | XMS_ITS | Encounter Summary ---
Author Organization [facility] [place] [address] Care Team Providers Care Wall Worker Name Role Phone Lorna Bal APRN Primary Care Provider [phone] [phone] Encounter Details Date Type Department Care Team (Latest Contact Info) Description 08/25/2022 Transcribe [place] [phone] Lorna Bal APRN [address] [place], [place] [id number] Escherichia coli septicemia; Intraspinal abscess; Spinal cord abscess Social History Tobacco Use [...] EDT TH Visit (TeleHealth) [place] [phone] Lilli Joy APRN [facility] [place] [address] 11/30/2023 12:50 PM EDT [place] [address] 12/03/2023 12:30 PM EDT Office [place] [phone] Hollie Ambriz MD [facility] [place] [address] documented as of this encounter Visit Diagnoses Diagnosis Escherichia coli septicemia Septicemia due to Escherichia coli (E. coli) Intraspinal abscess Spinal cord abscess Acute osteomyelitis, other specified site documented in this encounter Care Teams Wall Worker Relationship Specialty Start Date End Date Lorna Bal APRN [address] [place] [address] PCP - General Family Medicine 05/27/18 documented as of this encounter
--- OUTSIDE RECORDS SUMMARY | 2023-11-09 18:13 | XMS_ITS | Encounter Summary ---
Author Organization [facility] [place] [address] Care Team Providers Care Continuous Pickling Line Pickler Name Role Phone Lorna Bal APRN Primary Care Provider [phone] [phone] Encounter Details Date Type Department Care Team (Late st Contact Info) Description 09/05/2022 Telephone [place] [phone] Valentina Stanton Social History Tobacco Use Types [...] EDT TH Visit (TeleHealth) [place] [address] Lilli Joy APRN [facility] [place] [address] 11/30/2023 12:50 PM EDT [place] [phone] 12/03/2023 12:30 PM EDT Office [place] [phone] Hollie Ambriz MD [facility] [place] [address] documented as of this encounter Visit Diagnoses Not on filedocumented in this encounter Care Teams Continuous Pickling Line Pickler Relationship Specialty Start Date End Date Lorna Bal APRN [address] [place] [address] PCP - General Family Medicine 05/27/18 documented as of this encounter
--- OUTSIDE RECORDS SUMMARY | 2023-11-09 18:13 | XMS_ITS | Encounter Summary ---
Author Organization [facility] [place] [address] Care Team Providers Care Rivet Tosser Name Role Phone Lorna Bal APRN Primary Care Provider [phone] [phone] Encounter Details Date Type Department Care Team (Late st Contact Info) Description 09/08/2022 Telephone [place] [phone] Valentina Stanton Social History Tobacco Use Types [...] EDT TH Visit (TeleHealth) [place] [address] Lilli Joy APRN [facility] [place] [address] 11/30/2023 12:50 PM EDT Appointment [place] [phone] 12/03/2023 12:30 PM EDT Office Visit [place] [phone] Hollie Ambriz MD [facility] [place] [address] documented as of this encounter Visit Diagnoses Not on filedocumented in this encounter Care Teams Rivet Tosser Relationship Specialty Start Date End Date Lorna Bal APRN [address] [place] [address] PCP - General Family Medicine 05/27/18 documented as of this encounter
--- OUTSIDE RECORDS SUMMARY | 2023-11-09 18:13 | XMS_ITS | Encounter Summary ---
[place] [address] Care Team Providers Care Press Operator Meat Name Role Phone Lorna Bal APRN Primary Care Provider [phone] [phone] Reason for Referral * Consultation (Routine) - Closed Specialty Diagnoses / Procedures Referred By Contac t Referred To Contact [facility] Diagnoses 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 Soft tissue abscess Bacteremia Sergey Keane MD [facility] [place] [address] [facility] [place] [address] Referral ID Status Reason Start Date Expiration Date V isits Requested Visits Authorized [id number] Closed Consult, Test & Treat 08/13/2022 08/13/2023 1 1 Encounter Details Date Type Department Care Team (Late st Contact Info) Description 08/13/2022 11:30 AM EDT Office [place] [address] Sergey Keane MD [facility] [place] [address] 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; Soft tissue abscess; Bacteremia; [facility] 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 Social History [...] Sign Reading Time Taken Comments Blood Pressure 139/84 08/13/2022 11:02 AM EDT Pulse 88 08/13/2022 11:02 AM EDT Temperature 36.1 ??C (96.9 ??F) 08/13/2022 11:02 AM E DT Respiratory Rate 16 08/13/2022 11:02 AM EDT Oxygen Saturation 100% 08/13/2022 11:02 AM EDT Inhaled Oxygen Concentration - - Weight 49.9 kg (110 lb) 08/13/2022 11:02 AM EDT Height 157.5 cm (5' 2.01) 08/13/2022 11:02 AM E DT Body Mass Index 20.11 08/13/2022 11:02 AM EDT documented in this encounter Progress Notes * Sergey Keane MD - 08/13/2022 11:30 AM EDT Images from the original note were not included. DEPARTMENT OF INFECTIOUS DISEASE & [facility] INFECTIOUS DISEASE CLINIC NOTE PCP: Lorna Bal APRN Chief complaint: Follow up for spinal collections History of Present Illness: 27 year-old female with a PMH of??TBI with spastic quadriplegia, CP, and complex spinal hx including scoliosis, 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 and??prior bilateral [place]??in??2010 admitted to [facility] on 06/24??for evaluation of??increasing redness and tenderness [...] drainage from the same area??she returned to [facility] on 07/22, a repeated CT of the [...] admission her BCx returned positive for Pseudomonas oryzihabitans, rather than the expected E Coli . The clinical significance of this positive blood culture was uncertain as this organism does not typically cause clinical infection in immunocompetent hosts. Decision was to treat for another 6 weeks of levofloxacin. Today patient presents to ID office in company of her care givers and mother. They mention she is at her baseline mental status, no fever, no chills, no vomiting or diarrhea. One drain wit no output, the other drain with minimal serous drainage. Review of Systems: Unable to obtain due to clinical status Meds: Current Outpatient Medications on File Prior to Visit Medication Sig Dispense Refill ??? lactobacillus rhamnosus, GG, (CULTURELLE) 10 billion cell Capsule Take 1 capsule by mouth daily. ??? polyethylene glycoL (Miralax) 17 gram oral powder packet Take 17 g by mouth daily. ??? [] levoFLOXacin (Levaquin) 750 mg tablet Take 1 [...] ??F) Temp: -- Heart Rate Heart Rate: 88 Heart Rate: -- Blood Pressure BP: 139/84 BP: -- Respiratory Rate Resp: 16 Resp: [...] hernia. Bowel sounds are present.?? SPINE: [address], 1 with serous drainage [...] proposed, most recent witha course of po Levofloxacin. Today patient presented for follow up after hospital discharge. Very complex case due to the limited surgical options that she has to achieve source control, understanding that the culprit for this collections is her dislocated spinal hardware. I explained in detailed to the care givers and HCP that we are in front of an uncurable infection. They were informed that this is going to be a recurrent issue moving forward, as it has been proven that ABX therapy and drains are inefficient managing these collections. I also explained that the fact that cultures have failed to shown any pathogens makes very challenging the ABX selection, but despite these resultsthis is definitely behaving as an infection. Recent labs have shown a normal WBC but persistently elevated CRP.CT from today demonstrates almostcomplete resolution of one collection with a drain in, and shrinkage of the other, with no new collections.From Infectious diseases perspective we can offer a suppression regimen with doxycyline ( less side effects and safer profile) that can cover the most commonly associated pathogens, understanding that this is just a temporary measure. She should continue to follow up with IR for drain check.I consider that patient should be seen by orthopedic surgery as outpatient to reassess the indications of surgery and further explain the prognosis of this disease to her caregivers. Plan Based on patient clinical presentation, review of data and chart my plan is as follows: -Discontinue levofloxacin -Transition to doxycycline 100 mg PO BID -Referred to orthopedic surgery for outpatient follow up -Alarm signs were provided, come to the ED, call the office or 911 if initial symptoms return, fever, chills, associated with nausea, vomiting profuse diarrhea, confusion decrease urinary volumes Case discussed with Dr. Jamar Dasilva Follow up: As needed Sergey Doan MD Infectious Disease Fellow [facility] 08/18/2022 Chronic suppression Behaving as infection * Jamar Dasilva MD - 08/13/2022 11:30 AM EDT Attending Addendum: I have seen and examined the patient, reviewed the data and agree with the note by Dr. Jefferson. Interesting that the cultures were negative. However, I reviewed the images in detail with the family and caregivers today and showed my concerns about tracking of the inflammatory process (likely infection) to the hardware. We discussed that we would work with them to minimize intervention. This could s till progress despite this and should be followed by spine. We discussed the doxycyline use and hope she tolerates it. documented in this encounter Plan of Treatment Upcoming Encounters Date Type Department Care Team (Late st Contact Info) Description 11/19/2023 2:30 PM EDT TH Visit (TeleHealth) [place] [address] Lilli Joy [place] [facility] [place] [address] 11/30/2023 12:50 PM EDT [place] [address] 12/03/2023 12:30 PM EDT Office [place] [address] Hollie Ambriz MD [facility] [address] Scheduled Referrals Name Type Priority Associated Diagnoses Order Schedule Referral to Orthopaedics Outpatient Referral Routine 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 Soft tissue abscess Bacteremia Ordered: 08/13/2022 documented as of this encounter Visit Diagnoses Diagnosis 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 Acute osteomyelitis, other specified site Soft tissue abscess Cellulitis and abscess of other specified site Bacteremia [facility] 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 Encounter for long-term (current) use of antibiotics documented in this encounter Care Teams Press Operator Meat Relationship Specialty Start Date End Date Lorna Bal APRN [address] [place] [address] PCP - General Family Medicine 05/27/18 documented as of this encounter
--- OUTSIDE RECORDS SUMMARY | 2023-11-09 18:13 | XMS_ITS | Encounter Summary ---
[place] [address] Care Team Providers Care Leather Etcher Name Role Phone Lorna Bal APRN Primary Care Provider [phone] [phone] Encounter Details Date Type Department Care Team (Latest Contact Info) Description 08/25/2022 4:30 PM EDT Laboratory Appointment Lab [place] [address] 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; Bacteremia; E coli infection; Soft [...] EDT TH Visit (TeleHealth) [place] [address] Lilli Joy APRN [facility] [place] [address] 11/30/2023 12:50 PM EDT [place] [address] 12/03/2023 12:30 PM EDT Office [place] [address] Hollie Ambriz MD [facility] [place] [address] documented as of this encounter Visit Diagnoses Diagnosis 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 Acute osteomyelitis, other specified site Bacteremia E coli infection Other and unspecified Escherichia coli (E. coli) Soft tissue abscess Cellulitis and abscess of other specified site Muscle abscess Other disorder of muscle, ligament, and fascia documented in this encounter Care Teams Leather Etcher Relationship Specialty Start Date End Date Lorna Bal APRN [address] [place] [address] PCP - General Family Medicine 05/27/18 documented as of this encounter
--- OUTSIDE RECORDS SUMMARY | 2023-11-09 18:13 | XMS_ITS | Encounter Summary ---
Author Organization [facility] [place] [address] Care Team Providers Care Rail Car Welder Name Role Phone Lorna Bal APRN Primary Care Provider [phone] Encounter Details Date Type Department Care Team (Late st Contact Info) Description 08/15/2022 Telephone [place] [address] Shawn Woodard MD [facility] [place] [address] Social History Tobacco Use Types Packs/Day Years [...] encounter Miscellaneous Notes * Telephone Encounter - Shawn Woodard MD - 08/15/2022 3:06 PM EDT Call to Anderson, Tana's mother, to answer her earlier call to the [facility] nursing group with concerns. She was both confused after her clinic appointment of two days ago, when she feels that she received two different messages from the fellow and attending she saw (one suggesting there may not even olmedo infection and the other that Tana might need to be on antibiotics for life); and also concernedabout a [place] of erythema which she had noted around an old drain site. We also today had received a message from VNA about drainage at this old site, and Anderson was able to get on the phone with the VNA who was with the patient at the time of our call and the VNA didin fact tell us that there was definite drainage. Tana has otherwise been acting her usual self and has been without fevers. Recent labs have shown a normal WBC but persistently elevated CRP. CT from two days ago demonstrates almost complete resolution of one collection with a drain in and shrinkage of the other, with no new collections. We had a lengthy discussion about the complicated decision making around caring for Tana and reaffirmed that the infection may not be curable (hence discussion about manager long term care antibiotics), especially with the remaining screw, which Javed clearly understands. In fact she does express a wish that surgery had been performed to resolve this concern. In the short term, we agreed that it is reasonable to monitor Tana at home in the absence of fevers and given the reassuring CT, and to hope that the new drainage is from a superficial abscess only (given CT findings) and may thus spontaneously resolve with drainage. Should she develop fevers, on the other hand, or become otherwise ill, she will need to be seen in the local or ED. I offered to be available to her next week by phone should she have concerns. documented in this encounter Plan of Treatment Upcoming Encounters Date Type Department Care Team (Late st Contact Info) Description 11/19/2023 2:30 PM EDT TH Visit (TeleHealth) [place] [address] Lilli Joy [place] [address] 11/30/2023 12:50 PM EDT Appointment [place] [phone] 12/03/2023 12:30 PM EDT Office Visit [place] [address] Hollie Ambriz MD [facility] [place] [address] documented as of this encounter Visit Diagnoses Not on filedocumented in this encounter Care Teams Rail Car Welder Relationship Specialty Start Date End Date Lorna Bal APRN [address] [place] [address] PCP - General Family Medicine 05/27/18 documented as of this encounter
--- OUTSIDE RECORDS SUMMARY | 2023-11-09 18:14 | XMS_ITS | Encounter Summary ---
[place] [address] Care Team Providers Care Cloth Painter Name Role Phone Lorna Bal APRN Primary Care Provider [phone] [phone] Encounter Details Date Type Department Care Team (Latest Contact Info) Description 07/24/2022 Travel Social History Tobacco Use Types Packs/Day Years Used Date Smoking Tobacco: Never Smokeless Tobacco: Never Comments:NO SMOKERS IN THE H OME Alcohol Use Standard Drinks/Week Comments No 0 (1 standard drink = 0.6 oz pur e alcohol) [facility] Inpatient Questions Answer Date Recorded Does [...] EDT TH Visit (TeleHealth) Infectious Disease [place] [phone] Lilli Joy APRN [facility] [place] [id number] 11/30/2023 12:50 PM EDT [place] [address] 12/03/2023 12:30 PM EDT Office [place] [address] Hollie Ambriz MD [facility] [place] [address] documented as of this encounter Visit Diagnoses Not on filedocumented in this encounter Care Teams Cloth Painter Relationship Specialty Start Date End Date Lorna Bal APRN [address] [place] [address] PCP - General Family Medicine 05/27/18 documented as of this encounter
--- OUTSIDE RECORDS SUMMARY | 2023-11-09 18:14 | XMS_ITS | Encounter Summary ---
Author Organization [facility] [place] [address] Care Team Providers Care Account Supervisor Name Role Phone Lorna Bal APRN Primary Care Provider [phone] [phone] Encounter Details Date Type Department Care Team (Late st Contact Info) Description 07/09/2022 Notes Only Infectious Disease at [facility] [place] [phone] Mesha Mckeon, RN Social History Tobacco Use [...] Progress Notes * Mesha Mckeon, RN - 07/09/2022 9:51 AM EDT Infectious Disease Department Faxed to [facility] on 07/09/22 at 0950 Fax confirmation on 07/09/22 at 0952 Document(s) faxed: Standing labs documented in this encounter Plan of Treatment Upcoming Encounters Date Type Department Care Team (Late st Contact Info) Description 11/19/2023 2:30 PM EDT TH Visit (TeleHealth) [place] [address] Lilli Joy [place] [address] 11/30/2023 12:50 PM EDT [place] [address] 12/03/2023 12:30 PM EDT Office [place] [address] Hollie Ambriz MD [facility] [place] [address] documented as of this encounter Visit Diagnoses Not on filedocumented in this encounter Additional Health Concerns Infection Onset Date Last Indicated Resolved Time Parainfluenza Virus 06/28/2022 06/28/2022 07/10/19 8:09 PM EDT documented as of this encounter Care Teams Account Supervisor Relationship Specialty Start Date End Date Lorna Bal APRN [address] [place] [address] PCP - General Family Medicine 05/27/18 documented as of this encounter
--- OUTSIDE RECORDS SUMMARY | 2023-11-09 18:14 | XMS_ITS | Encounter Summary ---
Author Organization [facility] Address [facility] [place] [address] Care Team Providers Care Powder Compounder Name Role Phone Lorna Bal APRN Primary Care Provider [phone] [phone] Encounter Details Date Type Department Care Team (Late st Contact Info) Description 07/12/2022 Telephone [place] [address] Ainsley Doyle MD [facility] [place] [address] Social History Tobacco Use Types Packs/Day Years [...] encounter Miscellaneous Notes * Telephone Encounter - Ainsley Doyle MD - 07/12/2022 3:54 PM EDT Images from the original note were not included. After hr call from pt's mom today re: new redness and lump over her spinal incision. She sent me this photo: Orientation: this is pt's back, with head to the right and hip to the left. Pt does not have fevers, nor is she acting fussy or irritable. She is taking levofloxacin 750 at home. Advised close monitoring of the redness/bump. Since the paraspinal drain was removed 07/08, there may be reaccumulation of fluid. Discussed emergency s/s including fevers, confusion, acting sick - if this happens, bring pt to the ER. If not, continue monitoring and our team will touch base with mom on Thursday about next steps. Reasonable to consider basic labs (CBC, CMP, CRP) and in- person evaluation. Discussed with ID attending, Dr Huang. documented in this encounter Plan of Treatment Upcoming Encounters Date Type Department Care Team (Late st Contact Info) Description 11/19/2023 2:30 PM EDT TH Visit (TeleHealth) [place] [address] Lilli Joy APRN [facility] [place] [address] 11/30/2023 12:50 PM EDT [place] [address] 12/03/2023 12:30 PM EDT Office [place] [address] Hollie Ambriz MD [facility] [place] [address] documented as of this encounter Visit Diagnoses Not on filedocumented in this encounter Care Teams Powder Compounder Relationship Specialty Start Date End Date Lorna Bal APRN [address] [place] [address] PCP - General Family Medicine 05/27/18 documented as of this encounter
--- OUTSIDE RECORDS SUMMARY | 2023-11-09 18:14 | XMS_ITS | Encounter Summary ---
Author Organization [facility] Address [facility] [place] [address] Care Team Providers Care Lead Pressman Name Role Phone Lorna Bal APRN Primary Care Provider [phone] [phone] Encounter Details Date Type Department Care Team (Late st Contact Info) Description 07/17/[address] [facility] [place] [address] Jaamal Estrada MD [facility] [place] [address] Social History Tobacco Use Types Packs/Day Years Used Date Smoking Tobacco: Never Smokeless Tobacco: Never Comments:NO SMOKERS IN THE H OME Alcohol Use Standard Drinks/Week Comments No 0 (1 standard drink = 0.6 oz pur e alcohol) [facility] Inpatient Questions Answer Date Recorded [...] encounter Miscellaneous Notes * Telephone Encounter - Jamaal Estrada MD - 07/17/2022 3:55 PM EDT Infectious Disease Telephone Note I called Tana Cavazos 's mother to follow up on the redness on Tana's back and to discuss lab results. The red spot 'popped' and drained pus and now the redness is resolving. CRP is slightly up from 16 on 07/08 to 54 on 07/15. It's not clear to me if the infection in the back is indeed related to the E.coli bacteremia with we're treating with levofloxacin or due to another organism. However, two attempts by IR to culture the fluid collection have either not yielded enough fluid for culture or not grown anything on culture. For now, we agreed to continue levofloxacin for the planned duration of 6 weeks, treating as if Tana has osteodiscitis. The abscess in the back should stop draining and heal in the next days - if not, we should make another attempt at culturing. We will follow up next week. Jamaal Estrada MD ID Staff Physician documented in this encounter Plan of Treatment Upcoming Encounters Date Type Department Care Team (Late st Contact Info) Description 11/19/2023 2:30 PM EDT TH Visit (TeleHealth) [place] [address] Lilli Joy APRN [facility] [place] [address] 11/30/2023 12:50 PM EDT [place] [address] 12/03/2023 12:30 PM EDT Office [place] [address] Hollie Ambriz MD [facility] [place] [address] documented as of this encounter Visit Diagnoses Not on filedocumented in this encounter Care Teams Lead Pressman Relationship Specialty Start Date End Date Lorna Bal APRN [address] [place] [address] PCP - General Family Medicine 05/27/18 documented as of this encounter
--- OUTSIDE RECORDS SUMMARY | 2023-11-09 18:14 | XMS_ITS | Encounter Summary ---
Author Organization [facility] [place] [address] Care Team Providers Care Activity Manager Name Role Phone Lorna Bal APRN Primary Care Provider [phone] [phone] Encounter Details Date Type Department Care Team (Late st Contact Info) Description 07/15/2022 Telephone [place] [address] Valentina Stanton Social History Tobacco Use Types Packs/Day Years Used Date Smoking Tobacco: Never Smokeless Tobacco: Never Comments:NO SMOKERS IN THE H OME Alcohol Use Standard Drinks/Week Comments No 0 (1 standard drink = 0.6 oz pur e alcohol) [facility] Inpatient Questions Answer Date Recorded Does Anyone [...] Telephone Encounter - Jamaal Estrada MD - 07/15/2022 2:16 PM EDT Images from the original note were not included. Infectious Disease Telephone Note I called Tana Cavazos's mother. She shared with me that Tana developed redness over the previous drain site and on some spots on her buttocks three days ago. No fevers, no signs of systemic illness, alert. She is taking levofloxacin as prescribed. [facility] fallon labs today. We talked about the fact that we do not have definitive cultures from the fluid collection and presumed hardware infection in Tana's back, as there was no fluid on sonogram and drain placement on 07/04. We are basing a 6 week course for presumed spinal osteo on the E.coli bacteremia she had on 07/03. I recommended we await labs, including CRP. If rising (17 on discharge on 07/08), or if redness worsens, we might add a short course of cephalexin for a cellulitis. Alternatively, we could consider re-scanning Tana to rule out reaccumulation of fluid. We agreed to talk again after labs have been reported. I asked Tana's mother to activate her eDH account so we can assure that our communication is captured in her chart. Jamaal Estrada MD ID Staff Physician Pictures sent on 07/14: documented in this encounter Plan of Treatment Upcoming Encounters Date Type Department Care Team (Late st Contact Info) Description 11/19/2023 2:30 PM EDT TH Visit (TeleHealth) [place] [address] Lilli Joy APRN [facility] [place] [address] 11/30/2023 12:50 PM EDT [place] [address] 12/03/2023 12:30 PM EDT Office [place] [address] Hollie Ambriz MD [facility] [place] [address] documented as of this encounter Visit Diagnoses Not on filedocumented in this encounter Care Teams Activity Manager Relationship Specialty Start Date End Date Lorna Bal APRN [address] [place] [address] PCP - General Family Medicine 05/27/18 documented as of this encounter
--- OUTSIDE RECORDS SUMMARY | 2023-11-09 18:14 | XMS_ITS | Encounter Summary ---
Author Organization [facility] [place] [address] Care Team Providers Care Engine Assembly Supervisor Name Role Phone Lorna Bal APRN Primary Care Provider [phone] Encounter Details Date Type Department Care Team (Late st Contact Info) Description 07/22/2022 Orders Only Radiology at [facility] [address] Yury Gibbons MD [facility] [place] [address] Social History Tobacco Use Types Packs/Day Years [...] EDT TH Visit (TeleHealth) [place] [id number] Lilli Joy APRN [facility] [place] [address] 11/30/2023 12:50 PM [place] [address] 12/03/2023 12:30 PM EDT Office [place] [address] Hollie Ambriz MD [facility] [place] [address] documented as of this encounter Visit Diagnoses Not on filedocumented in this encounter Care Teams Engine Assembly Supervisor Relationship Specialty Start Date End Date Lorna Bal APRN [address] [place] [address] PCP - General Family Medicine 05/27/18 documented as of this encounter
--- OUTSIDE RECORDS SUMMARY | 2023-11-09 18:14 | XMS_ITS | Encounter Summary ---
Author Organization [facility] [place] [place] [address] Care Team Providers Care Electroplating Worker Name Role Phone Lorna Bal APRN Primary Care Provider [phone] Encounter Details Date Type Department Care Team (Late st Contact Info) Description 07/22/2022 Notes Only Infectious Disease at [facility] [place] [id number] Mesha Mckeon, RN Social History Tobacco Use [...] Progress Notes * Mesha Mckeon, RN - 07/22/2022 1:28 PM EDT Received call from [facility] who informed this commercial insurance underwriter that they are unable to obtain labs due to poor access. They other issue was when she did the dressing change on her spine the wound is open again and draining copious amounts of pus. Nurse also reports that the are looks like there is a bump on her lower spine that may need to be drained. Pt currently on Levofloxacin 750mg PO daily. Nurse was instructed to have the pt come to ED to be reevaluated. documented in this encounter Plan of Treatment Upcoming Encounters Date Type Department Care Team (Late st Contact Info) Description 11/19/2023 2:30 PM EDT TH Visit (TeleHealth) [place] [address] Lilli Joy APRN [facility] [place] [address] 11/30/2023 12:50 PM EDT [place]oint[place] [phone] 12/03/2023 12:30 PM EDT Office Visit [place] [address] Hollie Ambriz MD [facility] [place] [address] documented as of this encounter Visit Diagnoses Not on filedocumented in this encounter Care Teams Electroplating Worker Relationship Specialty Start Date End Date Lorna Bal APRN [address] [place] [address] PCP - General Family Medicine 05/27/18 documented as of this encounter
--- OUTSIDE RECORDS SUMMARY | 2023-11-09 18:14 | XMS_ITS | Encounter Summary ---
[place] [address] Care Team Providers Care Etched Circuit Processor Name Role Phone Lorna Bal APRN Primary Care Provider [phone] Reason for Referral * Diagnostic Test (Routine) - New Request Specialty Diagnoses / Procedures Referred By Contac t Referred To Contact Radiology Diagnoses 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 Procedures IR Drain Check/Change/Remove Lucho Burciaga MD [facility] [place] [address] [place] [address] Referral ID Status Reason Start Date Expiration Date Visits Requested Visits Authorized [id number] New Request Specialty Service Requested 07/24/2022 01/25/2024 1 1 Reason for Visit * Reason Comments Wound Check * Auth/Cert (Routine) Specialty Diagnoses / Procedures Referred By Contac t Referred To Contact Diagnoses Abscess Procedures EMERGENCY Eddi Samuel MD [facility] [place] [address] [facility] Referral ID Status Reason Start Date Expiration Date Visits Re quested Visits Authorized [id number] 1 1 Encounter Details Date Type Department Care Team (Latest Contact Info) Description 07/22/2022 5:43 PM EDT - 08/01/2022 5:12 PM EDT Hospital Encounter Medical Specialites Unit Level 1 [place] [id number] Alek Tavares MD [facility] [place] [address] Eddi Váz[place] [address] [place] [address] [place] [address] 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 Dx); QT prolongation; Abscess Discharge Disposition: Home Social History Tobacco [...] Sign Reading Time Taken Comments Blood Pressure 95/61 08/01/2022 11:14 AM EDT Pulse 118 07/28/2022 10:17 PM EDT Temperature 36.4 ??C (97.5 ??F) 08/01/2022 11:14 AM E DT Respiratory Rate 16 08/01/2022 11:13 AM EDT Oxygen Saturation 97% 08/01/2022 11:14 AM EDT Inhaled Oxygen Concentration - - Weight - - Height - - Body Mass Index - - documented in this encounter Discharge Summaries * Jamshid Collins MD - 08/01/2022 1:46 PM EDT Images from the original note were not included. Discharge Summary Patient Name: Tana Cavazos Patient Age: 27 y.o. Language: Pashto Race: White Ethnicity: Not nor Admit date: 07/22/2022 Discharge date and time: 08/01/2022 1:46 PM Attending Physician: Jamshid Collins MD Discharge Physician: Jamshid Collins MD Follow-up Recommendations for Providers: ?? Patient will need IR follow up for drain check 08/11 ?? Recommend at least weekly labs including CBC, CMP, and CRP while she remains on antibiotics ?? Recommend follow up repeat CT of lumbar spine to evaluate for interval changes in abscesses ?? Remain on levofloxacin until directed to stop by ID Inpatient Provider Contact Information: For questions regarding this document or issues relating to this hospitalization on the Medical Service, please contact your inpatient physician through the [facility] Molder Offbearer . Issues afterhours and on weekends will be handled by the Hospitalist staff on-call. Discharge Diagnoses (Hospital Problems) and Secondary Diagnoses (Chronic Problems): Active Hospital Problems Diagnosis ??? Abscess Resolved Hospital Problems No resolved problems to display. Active Non-Hospital Problems Diagnosis ??? 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 ??? Fracture of femur, distal ??? Contracture of elbow ??? Right leg pain ??? Presence of intrathecal baclofen pump ??? Spasticity ??? Scoliosis ??? Edema leg ??? Acquired dysplasia of hip, bilateral ??? 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 coli bacteremia s/p aspiration(with aspirate cultures being negative) who presented to the ED today with her caregiver for increased redness around the area andincreased purulent drainage over the last few days. Patient was previously discharged on levofloxacin to be continued through 08/17. She however denies any fevers or chills. Denies any cough or shortness of breath. Denies any nausea, vomiting or altered mental status. ?? In the ED initial vitals on presentation-94/70, 96.F, sat 99% on room air. Labs with WBC at 5.6, mild anemia. BMP unremarkable however ESR elevated to 119 and CRP uptrending to 48.[address] of the lumbar spine showed mildly increasing soft tissue collection around the right iliac screw and a dorsal subcutaneous collection at L3 which is larger as well. Considering previous cultures being pansensitive E. coli she was switched to ceftriaxone and admitted to hospital medicine forfurther management. Likely IR guided drainage versus spine consult for drainage tomorrow. Hospital Course: Tana was admitted to hospital medicine on 07/22 in stable condition. #Lumbar subcutaneous abscesses with elevated inflammatory markers ID and Orthopedics were consulted on admission. ID recommended surgical washout and removal of the loose screw in her back. They also recommended continuing oral levofloxacin given prior microbiologic data (prior blood cultures with E coli). Orthopedics, however, recommended avoiding surgery and instead recommended IR drain placement. The patient had two drains successfully placed by IR on 07/24. Following drain placement the patient remained stable and afebrile. Inflammatory markers initially trended down. The drains had several hundred cc of fluid the first day, minimal output afterwards. The patient had repeat CT of her lumbar spine per ID recommendations on 07/28. This noted interval decrease in size of the collections being drained, particularly in the more cephalad drain. After further discussions between multiple services, Orthopedics still recommended against operative washout in the immediate future, while acknowledging that this might eventually be required. Isaiah remained stable on an oral antibiotic and with no immediate operative plans, ID felt comfortable with discharging Tana to home with close follow up, regular labs, and repeat imaging. # Enterovirus/Rhinovirus On 07/28, patient noted to have new runny nose and later cough. Also noted to be more irritable and her temperature was elevated but not in febrile range. After a coughing spell, a respiratory panel and CXR were ordered. Panel was positive for enterovirus/rhinovirus. CXR was unremarkable. She was given supportive and symptomatic treatments as needed. # Positive blood culture (Pseudomonas oryzihabitans), likely contaminant Before Tana could be discharged, a blood culture that had been drawn as part of the evaluation that led to her enterovirus diagnosis turned positive approximately 48 hours after they had been collected (on the evening of 07/28). This was positive in only one of four bottles (aerobic bottle). These were not identified by PCR, but eventually it was found to be growing Pseudomonas oryzihabitans. Subsequent cultures drawn on 07/30 and 07/31 had no growth. The susceptibilities showed that this organism was susceptible to levofloxacin. As Tana was not systemically ill, not febrile, and was already on an antibiotic that was active against this organism, both Medicine and ID felt that this constituted a contaminant. ?? #TBI with spastic quadriplegia #Cerebral palsy, nonverbal #Scoliosis s/p PSF, prior bilateral Girdlestone Patient was continued on her usual home regimen including baclofen and as needed Tylenol Vital Signs at Discharge: BP: 95/61, Heart Rate: (!) 118, Temp: 36.4 ??C (97.5 ??F), Resp: 16, Functional and Cognitive Status: At baseline. Essentially nonverbal. Nonambulatory with spastic quadriplegia. Completely dependent for all care. Important Studies and Lab Data: Labs: Recent Labs 08/01/22 0547 07/31/2245207/30/22 0514 WBC 5.3 4.8 4.1 HGB 9.9* 10.3* 9.9* HCT 32.2* 33.3* 31.7* PLATELET 329 302 305 Recent Labs 07/31/2245207/28/22232607/28/22 0502 NA 138 138 138 K 3.9 3.9 4.0 CL 103 102 103 CO2 24 25 25 BUN 11 7* 10 CREATININE 0.29* 0.30* 0.28* Recent Labs 07/28/222326 AST 35* ALT 42* ALKPHOS 182* BILITOT 0.2 Recent Labs 07/31/2245207/28/22232607/28/22 0502 07/27/22 0245 CALCIUM 9.3 9.2 8.8 9.3 MAGNESIUM -- 0.73 -- 0.78 PHOS -- 4.2 -- -- No results for input(s): CK, TROPONINT in the last 168 hours. No results for input(s): PT, PTT, INR in the last 168 hours. Studies: N/A Pending Studies and Lab Data: none Discharge Conditions/Prognosis: Upon discharge the pt is hemodynamically stable, not requiring supplemental oxygen, afebrile and pain free Discharge to: home Updated Allergies/ADRs: Allergies Allergen Reactions ??? Fluoxetine Other (See Comments) HIVES, HEART RACES ??? Tegaderm [Transparent Dressings] Itching and Dermatitis Please use [id number] ??? Penicillins Immunizations Given this Hospitalization: Immunization History Administered Date(s) Administered ??? Influenza Vaccine (Novel) P2E2-24, Injectable 02/25/2009 ??? Influenza Vaccine w/Preservative, Split 04/25/2011 ??? Influenza Vaccine, Whole 03/27/2009 Discharge Medications: Your Medications Continued medications, unchanged Dose Details baclofen 10 mg tablet Commonly known as: Lioresal Take 10 mg by mouth 2 times daily. 10 mg Refills: 0 levoFLOXacin 750 mg tablet Commonly known as: Levaquin Take 1 tablet by mouth every morning for 39 days. 750 mg Quantity: 40 tablet Refills: 0 multivitamin Tab Commonly known as: THERAGRAN Take 1 tablet by mouth daily. 1 tablet Refills: 0 nystatin 100,000 unit/gram Powd Commonly known as: MYCOSTATIN Apply 1 each topically 2 times daily. 1 each Refills: 0 polyethylene glycoL 17 gram oral powder packet Commonly known as: Miralax Take 17 g by mouth daily. 17 g Refills: 0 senna 8.6 mg tablet Commonly known as: Senokot Take 2 tablets by mouth nightly. 2 tablet Refills: 0 Smoking Status at Discharge: Social History Tobacco Use Smoking Status Never Smokeless Tobacco Never Tobacco Comments NO SMOKERS IN THE HOME Instructions Given to Patient at Discharge: Patient Instructions Instructions after leaving the hospital Why you were hospitalized: Abscesses in Tana's back. Call your doctor or seek medical attention if you develop the following: chest pain, shortness of breath, feeling dizzy upon standing, passing out, diarrhea, constipation lasting longer than 2 days, fevers (temperature over 100.3), chills, abdominal pain, vomiting, difficulty or discomfort when urinating, bloody or black bowel movements, or any other acute or concerning symptom. Activity level: Resume your previous level of activity Diet: Resume your previous diet Driving: N/A Shower/Bath: See below Wound Care: See below Anticoagulation Management (Blood Thinner Medications) Upon Discharge: N/A Specific instructions related to your condition: You should watch Tana for significant changes from her baseline behaviors, which could indicate worsening of the infection. If Tana has a high fever, new wounds on her back, a change in the character of the fluid in her drains then you should call her doctor or brought her to be seen. Tana should continue to take her antibiotic (levofloxacin) every day. This will help her to fight the infection. She should continue this every day until the infectious disease doctors tell her to stop it. She might require longterm antibiotics to suppress infection. At some point in the future, the Orthopedic Surgeons may need to do an operation on her back if the infection comes back and can't be controlled with medication alone. It will be important to follow up with the infectious disease doctors shortly after discharge. Appointments are already scheduled. She will need labs drawn weekly to monitor her while she is on an antibiotic and to monitor for signs her infection could be worsening. Lab draws have been ordered and it will be best if Tana has her blood drawn before each of her upcoming appointments. She will needa repeat CT scan after discharge (this has been ordered as well), which the infectious doctors willuse to help gauge if she is continuing to get better. Tana has an appointment arranged with the radiology doctors to check her drains. Please keep this appointment and see the recommendations below on how to care for these drains at home. Important Medication changes (Please see medication list for full list of medications at time of discharge): No changes Follow-Up Appointments Future Appointments Date Time Provider Department Center 08/07/2022 1:00 PM Lilli Joy APRN [facility] ID 5C [facility] 08/11/2022 12:50 PM [facility] IR ROOM 6 MH IR [facility] Rad 08/13/2022 11:30 AM Sergey Keane MD [facility] ID 5C [facility] Non-[facility] Follow-up Appointments: N/A Your Inpatient Doctor(s) at [facility]: ALEK TAVARES, ERNESTO MCCARTHY, EDDI BELL TIMOTHY R For questions regarding issues relating to your hospitalization on the Hospital Medicine Service, please contact your inpatient physician through the [facility] Molder Offbearer [phone]. Issues after hours and on weekends will be handled by the Hospitalist staff on-call. Your Primary Care Provider Lorna Bal APRN [phone] General Instructions INTERVENTIONAL RADIOLOGY DRAIN CARE INSTRUCTIONS Drains help [...] tightly enough, the plug may not be closed securely, or the tube has slipped out a bit and is leaking. Follow the instructions on how to empty the drain. If the bulb remains expanded, then notify your doctor or nurse during business hours. ??? No drainage or sudden decrease in amount of drainage- This may be due to a plug in the drain. Please notify your doctor or nurse during business hours. ??? The tube accidentally falls out- If this happens, place a dry gauze dressing over the drain site and notify your doctor or nurse during business hours. ??? Increased redness, swelling, or heat around the tube insertion site- This may be a sign of infection. Take your temperature: if it is higher than 101F or 38.8C, call your doctor or nurse immediately. Otherwise, notify your doctor or nurse during business [...] the measuring cup or any other surface. 1. 2. Use one hand to squeeze all of the air from the drain. With the drain still squeezed, use your other hand to replace the top. This creates the suction necessary to remove the fluids from your body. 3. Pin the drain back on your clothing to avoid pulling it out accidently. 4. Wash your hands again. Remember to wash [...] is during regular office hours, please call [phone]. If it is after regular office hours, or on weekends or holidays, please call [phone] and ask to speak to the Program Control Analyst card tape converter operator for Interventional Radiology. XX You have received [...] Total Amount (per drain; in 24 hours) Future Appointments and Orders Future Appointments and Orders Future Appointments Provider Department Dept Phone 08/07/2022 1:00 PM Lilli Joy APRN Infectious Disease at [facility] Arrive at: Home [phone] Please do not come in for this visit. Your provider will call you at the number you provided. 08/11/2022 12:50 PM [facility] IR ROOM 6 Radiology at [facility] Arrive at: [facility] RADIOLOGY [phone] Please expect a call from a radiology nurse within 3 days of your exam, you will need to follow theinstructions given at that time. 08/13/2022 11:30 AM Sergey Keane MD Infectious Disease at [facility] Arrive at: [employer] Area [phone] Future Orders Complete By Expires IR Drain Check/Change/Remove [[id number] Custom] 08/07/2022 (Approximate) 02/06/2023 Process Instructions: Scheduling Instructions: Comments: Questions: Where will study be performed?: [facility] Radiology Reason for exam and clinical history: Sacral and L2-L3 soft tissuel fluid collections Clinical information / foster questions for radiologist: Exam/Procedure requested: What labs need to be collected during imaging study?: Is the patient ?: No Does patient require sedation?: GA rationale: Requested Time: Date of injury if applicable: Is the patient on anticoagulant / antiplatelet therapy ?: No CT Lumbar Spine w Contrast [[id number] Custom] 08/08/2022 02/07/2023 Process Instructions: Scheduling Instructions: Questions: Clinical information / foster questions for radiologist: eval for interval changes in abscesses s/p drain placement Where will study be performed?: [facility] Radiology Is the patient ?: No Stat read required?: Does patient require sedation?: GA rationale: Date of injury if applicable: Recurring Lab Work Interval Expires CBC (with Diff) [[id number] Custom] Once a week until 08/02/2023 08/02/2023 Process Instructions: INCLUDES: WBC, RBC, Hgb, Hct, Platelets, RBC Indices and Differential Scheduling Instructions: Comments: Questions: Comprehensive metabolic panel (non-fasting) [LAB17 Custom] Once a week until 08/02/2023 08/02/2023 Process Instructions: INCLUDES: Calcium, T Protein, Albumin, AST, ALT, Alk Phos, T Bili, BUN, Creat, GFR, Glucose, Lytes. Scheduling Instructions: Comments: Questions: CRP, acute inflammation [[id number] Custom] Once a week until 08/02/2023 08/02/2023 Process Instructions: Scheduling Instructions: Comments: Questions: Discharge References/Attachments None documented in this encounter Discharge Instructions * Discharge Instructions* Rebecca Hernandez RN - 07/24/2022 9:14 AM EDT Images from the original note [...] is during regular office hours, please call [phone]. If it is after regular office hours, or on weekends or holidays, please call [phone] and ask to speak to the Program Control Analyst card tape converter operator for Interventional Radiology. XX You have received [...] Total Amount (per drain; in 24 hours) * Patient Instructions* Jamshid Collins MD - 08/01/2022 1:14 PM EDT Instructions after leaving the hospital Why you were hospitalized: Abscesses in Yahaira back. Call your doctor or seek medical attention if you develop the following: chest pain, shortness of breath, feeling dizzy upon standing, passing out, diarrhea, constipation lasting longer than 2 days, fevers (temperature over 100.3), chills, abdominal pain, vomiting, difficulty or discomfort when urinating, bloody or black bowel movements, or any other acute or concerning symptom. Activity level: Resume your previous level of activity Diet: Resume your previous diet Driving: N/A Shower/Bath: See below Wound Care: See below Anticoagulation Management (Blood Thinner Medications) Upon Discharge: N/A Specific instructions related to your condition: You should watch Tana for significant changes from her baseline behaviors, which could indicate worsening of the infection. If Tana has a high fever, new wounds on her back, a change in the character of the fluid in her drains then you should call her doctor or brought her to be seen. Tana should continue to take her antibiotic (levofloxacin) every day. This will help her to fight the infection. She should continue this every day until the infectious disease doctors tell her to stop it. She might require longterm antibiotics to suppress infection. At some point in the future, the Orthopedic Surgeons may need to do an operation on her back if the infection comes back and can't be controlled with medication alone. It will be important to follow up with the infectious disease doctors shortly after discharge. Appointments are already scheduled. She will need labs drawn weekly to monitor her while she is on an antibiotic and to monitor for signs her infection could be worsening. Lab draws have been ordered and it will be best if Tana has her blood drawn before each of her upcoming appointments. She will needa repeat CT scan after discharge (this has been ordered as well), which the infectious doctors willuse to help gauge if she is continuing to get better. Tana has an appointment arranged with the radiology doctors to check her drains. Please keep this appointment and see the recommendations below on how to care for these drains at home. Important Medication changes (Please see medication list for full list of medications at time of discharge): No changes Follow-Up Appointments Future Appointments Date Time Provider Department Center 08/07/2022 1:00 PM Lilli Joy APRN [facility] ID 5C [facility] 08/11/2022 12:50 PM [facility] IR ROOM 6 [facility] Rad 08/13/2022 11:30 AM Sergey Keane MD [facility] ID 5C [facility] Non-[facility] Follow-up Appointments: N/A Your Inpatient Doctor(s) at [facility]: ALEK TAVARES ABHIJIT S STEWART, EMILY A O'DOWD, EDDI BELL TIMOTHY R For questions regarding issues relating to your hospitalization on the Hospital Medicine Service, please contact your inpatient physician through the [facility] Molder Offbearer [phone]. Issues after hours and on weekends will be handled by the Hospitalist staff on-call. Your Primary Care Provider Lorna Bal, HAND HEEL SEAT FITTER [phone] documented in this encounter Medications at Time [...] as of this encounter Progress Notes * Shawn Woodard MD - 08/01/2022 5:12 PM EDT Infectious Disease Follow-Up Antimicrobials: Levofloxacin Events: none Subjective: Unable to obtain. No significant interval changes per caregiver at bedside. Physical Exam: BP 95/61 (BP Location (NBP): Left arm, Patient Position: Lying) Pulse (!) 118 Temp 36.4 ??C (97.5 ??F) (Oral) Resp 16 SpO2 97% General: no acute distress, able to track to voice, occasionally smiling CV: tachycardic, regular rhythm, no obvious murmurs Resp: clear to auscultation bilaterally; no wheezing, crackles, or rhonchi Abd: soft, non-distended, non-tender on palpation MSK: drains x2 with ongoing yellow output Ext: warm and well-perfused, no lower extremity edema Skin: no visible rashes Pertinent labs, microbiology, imaging and procedures: Reviewed Impression: We remained perplexed by the isolation of Pseudomonas oryzihabitans on blood culture, rather than the expected E Coli as before. The clinical significance of this positive blood culture is uncertain as this organism does not typically cause clinical infection in humans on literature review, and if implicated, usually involves immunocompromised hosts. That said, it is difficult to completely dismiss this as a contaminant, particularly given occurrence while on susceptible antibiotics. We remain concerned about the adequacy of source control with just IR drainage despite some improvement of herfluid collections on repeat CT. Orthopedics has nevertheless recommended against surgical intervention unless there is clinical deterioration. At this juncture, we can attempt another trial of antibiotics given strong preference byher healthcare proxy for conservative management, though how successful this will be is far from certain. We therefore recommend continuing levofloxacin, an agent with excellent bioavailability and activity against isolated organisms, for a tentative duration of 6 weeks in treatment of hardware-associated infection. She will need repeat CT prior to discontinuation of therapy. We will also follow-up her surveillance blood cultures - if any of these return positive, a more aggressive approach will have to be re-considered. Recommendations: 1. Continue levofloxacin 750mg PO q24h ??? Advised to avoid co-administration with dairy products, multivitamins, and divalent cations 2. Weekly CBC, CMP, CRP while on above to monitor for toxicity and disease progression 3. Duration of therapy tentatively set at 6 weeks from most recent drain placement (anticipated enddate: 09/04/22) 4. Will need repeat CT lumbar in the next couple of weeks 5. ID follow-up scheduled on 08/07/22 Discussed with attending, Dr. Vance Lundberg DO ID Fellow Green Team Pager: [phone] I examined the patient independently of Dr. Lundberg, but agree with her findings and recommendations after discussion with her and review of her note. I also reviewed with her all pertinent labs, microbiology and radiology detailed above. At this point I think we can make final recommendations as above.Happily, repeat blood cultures are NGTD, so I don't think the isolated positive culture from 07/28 needs to change our plans. Shawn Woodard MD * Chrissie Lundberg DO - 08/01/2022 3:17 PM EDT DH OPAT INTAKE: Diagnosis: Osteomyelitis + hardware infection, Antibiotic Type: PO, Organism(s): E.coli, ?Pseudomonas oryzihabitans. Antibiotic(s) being taken: Levofloxacin (750mg PO q24h) With a start date of 07/24/2022, and anticipated end date of 09/04/2022. Desired labs: CBC w/diff, CMP and CRP. Lab frequency: Weekly Other: Desired timing of end of therapy appointment: Week of: 09/01/2022. Other speciality appointments to coordinate with: Yes Which speciality?: Ortho Dialysis patient?: No Imaging needed?: Yes What study?: CT lumbar w/ contrast Who is ordering?: to be ordered Preferred provider for end of therapy visit: whoever is available ([facility] already scheduled follow-up) * Priscilla Calixto - 08/01/2022 12:45 PM EDT Nutrition Services Note - Low Nutrition Acuity Tana Cavazos is a 27 y.o. female Reason for intervention: hospital length of stay Nutrition Plan: Continue diet order Monitor good PO Miralax noted Monitor weight weekly Patient scheduled for a hospital length of stay nutrition evaluation. Client Development Manager spoke with nursing d/tpt status. Per documentation patient has excellent PO intakes recorded at 75-100% over the past 4 days. According to dining services software they have ordered btwn 1608-3033kcals/day within the sameduration. Pt is eating great with caregiver assistance and is completing 75% of food received per RN. Client Development Manager unable to assess weight d/t only documentation upon admission 06/24. Please update and trend wts to allow for ongoing assessment of weight changes. Clinical Nutrition to monitor and follow. Active Orders Diet Regular diet Frequency: Effective Now Number of Occurrences: Until Specified Admit Weight: Estimated body mass index is 19.77 kg/m?? as calculated from the following: Height as of 07/28/22: 157.4 cm (5' 1.97). Weight as of 06/24/22: 49 kg (108 lb). Wt Readings from Last 5 Encounters: 06/24/22 49 kg (108 lb) 03/18/19 51.7 kg (114 lb) 05/27/18 54.4 kg (120 lb) 03/06/17 56.7 kg (125 lb) 12/30/16 52.2 kg (115 lb 1.3 oz) Weight loss: unable to assess d/t lack of documentation. Please update and monitor weight trends weekly to allow for further nutritional assessment. Appetite: Excellent (75%-100%) - per chart and RN. Pt has a great appetite and does not require nutritional supplementation per RN. Food allergies:no known food allergies - per chart Chewing/Swallowing difficulty: none - per RN Nausea/Vomiting: no nausea and no vomiting - per RN Last Bowel Movement: 07/31/22 Nutrition services to follow weekly through hospital course unless consulted in the interim. ALEJANDRO Roque * Jamshid Collins MD - 08/01/2022 7:23 AM EDT Hospital Medicine - Attending Day of Discharge Documentation Discharge diagnosis Active Hospital Problems Diagnosis ??? Abscess Resolved Hospital Problems No resolved problems to display. Secondary Issues Active Non-Hospital Problems Diagnosis ??? 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 ??? Fracture of femur, distal ??? Contracture of elbow ??? Right leg pain ??? Presence of intrathecal baclofen pump ??? Spasticity ??? Scoliosis ??? Edema leg ??? Acquired dysplasia of hip, bilateral ??? 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 I spent >30 minutes (Day of Discharge Code 68851) involved in the final examination of the patient, discussion of the hospital stay, instructions for continuing care to all relevant caregivers, and preparation of discharge records, prescriptions and referral forms. Plans ? Discharge to home ? Follow-up scheduled with infectious diseases, IR ? Please see the Discharge Summary for complete details of any medication changes and additional plans. Jamshid Collins MD [facility] Medicine * Yandy Masters RN - 08/01/2022 2:01 AM EDTSummary: Nursing OUTCOME EVALUATION NOTE: OUTCOME SUMMARY: Alert, non-verbal, hx of paraplegia, vss, 2a/L, no s+s of pain. Patient is resting comfortably in bed, Fannie (floor care technician) at bedside and attentive to patient, 2 JPs WNL, no acute distress, WCTM. PLAN MOVING FORWARD: PO ABX D/c planning INDIVIDUALIZED FALL PREVENTION INTERVENTIONS: Patient-specific fall risk factors per assessment: [current deficits]: Paraplegic Assistance [level of assistance required for transfers and ambulation]: 2a/lift Supervision [direct monitoring required during toileting and ADLs]: Hand/eyes on Surveillance [continuous indirect monitoring]: Hourly rounding, call fay, bed alarm, room close tonurse station, MASIMO Patient-specific fall prevention interventions for sensory deficits provided, if applicable: [X] Yes CARE PLAN GOAL OUTCOME EVALUATION: * Shawn Woodard MD - 07/31/2022 6:52 PM EDT Infectious Disease Follow-Up Antimicrobials: Levofloxacin Events: ?? Remains afebrile ?? Ortho recommendations reviewed - no plan for surgery unless clinical deterioriation Subjective: Patient non-verbal. Seemed to be smiling less than usual. Caregiver at bedside also notes that she is quieter and less interactive. Has been having more frequent bowel movements. Physical Exam: BP 101/76 (BP Location (NBP): Left arm, Patient Position: Lying) Pulse (!) 118 Temp 36.4 ??C (97.5 ??F) (Axillary) Resp 16 SpO2 97% General: no acute distress, able to track to voice, less interactive compared to usual CV: tachycardic, regular rhythm, no obvious murmurs Resp: clear to auscultation bilaterally; no wheezing, crackles, or rhonchi Abd: soft, non-distended, non-tender on palpation MSK: drains x2 with ongoing yellow output Ext: warm and well-perfused, no lower extremity edema Skin: no visible rashes Pertinent labs, microbiology, imaging and procedures: Reviewed Impression: Surprisingly, the organism from the positive blood culture on 07/28/22 is now identified as Pseudomonas oryzihabitans rather than the expected E Coli as before. On literature review, this is a Pseudomonas species (formerly known as Flavimonas oryzihabitans) that rarely causes clinical infections in humans, and if implicated, usually in immunocompromised hosts. They are apparently rarely resistant and are typically susceptible to fluoroquinolones. The clinical significance of this blood culture isolate is uncertain. I wonder whether this could be a contaminant on the basis of recovery in a single bottle and unusual organism without known association to this type of infection. That said, it is also hard to dismiss this new update in her microin her current situation, with uncertainty surrounding the adequacy of source control with just IR drainage. We noted family's preference for conservative management and recommendations against surgical intervention by Orthopedics unless there is clinical deterioration. For now, continue levofloxacin as you are given ongoing clinical stability. Will await repeat BC and susceptibilities of the Pseudomonas isolate. If repeat BC remain positive, then we will have to consider a more aggressive approach to adequately address her infection. Recommendations: 1. Continue levofloxacin 750mg PO q24h 2. Follow-up susceptibilities of Pseudomonas blood isolate 3. Follow-up repeat BC; please repeat another set today 4. Periodic CBC w/ diff, CMP, CRP while on above to monitor for toxicity and disease progression 5. If diarrhea persists, can consider C difficile screen Following. Please call with questions. Discussed with attending, Dr. Vance Lundberg, DO ID Fellow Green Team Pager: [phone] I examined the patient independently of Dr. Lundberg, but agree with her findings and recommendations after discussion with her and review of her note. I also reviewed with her all pertinent labs, microbiology and radiology detailed above. The isolation of an unusual species pf Pseudomonas from blood is very surprising and concerning for persistent infection that may not be amenable to medical therapy,which will be confirmed if this is a sensitive organism and repeat cultures are again positive. In interim would treat as above. Shawn Woodard MD * Abiola Black MD - 07/31/2022 8:22 AM EDT BRIEF UPDATE FROM ORTHO SPINE TEAM: At this time, all of Tana's cultures from lumbar fluid collections remain negative. Cultures for bacterial organisms were negative and final 07/29. Cultures for Fungal remain preliminarly NGTD. Discussed case this AM and plan to continue to follow patient peripherally. If clinically she deteriorates, will consider surgical intervention. Shady Black MD Orthopaedic Resident, PGY3 Associated attestation - Joe Harrison MD - 08/01/2022 9:36 AM EDT Agree with resident note. If this fails then consider surgical debridement vac placement possible plastics involvement. Joe Harrison MD [facility] Spine Surgery - Department of Orthopaedic Surgery [employer] - Department of Orthopedic Surgery / [employer] Pharmacy Technician Trainee Professor - [facility] 08/01/2022 * Jamshid Collins MD - 07/31/2022 7:34 AM EDT Hospital Medicine Attending Daily Progress Note Admit Date: 07/22/2022 Hospital Day 9 days Subjective Interval History: ??? No acute events ??? Stable VS overnight, remains afebrile ??? Nonverbal, unable to voice complaints. Appears in no distress today ROS: Unable to attend Active Hospital Problems Diagnosis ??? Abscess Resolved Hospital Problems No resolved problems to display. PMH Active Non-Hospital Problems Diagnosis ??? 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 ??? Fracture of femur, distal ??? Contracture of elbow ??? Right leg pain ??? Presence of intrathecal baclofen pump ??? Spasticity ??? Scoliosis ??? Edema leg ??? Acquired dysplasia of hip, bilateral ??? 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 lidocaine 1 patch Transdermal Daily ??? levoFLOXacin 750 mg Oral QAM ??? baclofen 10 mg Oral BID ??? polyethylene glycoL 17 g Oral Daily ??? senna 17.2 mg Oral Nightly ??? sodium chloride 0.9 % (flush) 5 mL Intravenous BID ??? senna-docusate 2 tablet Oral BID ??? enoxaparin 30 mg Subcutaneous Nightly Continuous infusions: PRN: ibuprofen, sodium chloride 0.9 % (flush), lidocaine, acetaminophen Objective Physical Exam Vitals Range last 24 hrs Temperature Temp: [36.5 ??C (97.7 ??F)-36.8 ??C (98.2 ??F)] Heart Rate Heart Rate: -- Blood Pressure BP: (88-121)/(53-89) Respiratory Rate Resp: [15-16] SpO2 SpO2: [98 %-99 %] Patient Vitals for the past 24 hrs: Temp Heart Rate From SP02 Resp BP SpO2 O2 Device 07/30/22 1606 36.5 ??C (97.7 ??F) 78 bpm 15 121/89 98 % -- 07/30/22 2018 36.8 ??C (98.2 ??F) 81 bpm 16 112/61 99 % RA 07/31/22 0654 36.6 ??C (97.9 ??F) 65 bpm 16 (!) 88/53 99 % RA Intake/Output Summary (Last 24 hours) at 07/31/2022 1125 Last data filed at 07/31/2022 0800 Gross per 24 hour Intake 350 ml Output -- Net 350 ml Physical Exam GEN: NAD, makes eye contact, occasionally can verbalize hello or yes HEENT: at/nc, anicteric CV: rrr, no m/r/g PULM: cta b/l, comfortable ABD: soft, nt/nd, nabs EXT: b/l contracted LE with girdlestone procedures Neuro: at baseline Skin: lower back with mild erythema, wounds dressed with two drains in place Studies reviewed in eDH. Remarkable for the following: LABS: Lab Results Component Value Date WBC 4.8 07/31/2022 HGB 10.3 (L) 07/31/2022 HCT 33.3 (L) 07/31/2022 MCV 80.0 (L) 07/31/2022 PLATELET 302 07/31/2022 Lab Results Component Value Date NA 138 07/31/2022 K 3.9 07/31/2022 CL 103 07/31/2022 CO2 24 07/31/2022 BUN 11 07/31/2022 CREATININE 0.29 (L) 07/31/2022 GLUCOSE 88 07/31/2022 GLUCFASTING 95 07/01/2022 CALCIUM 9.3 07/31/2022 ESTGFR 148 07/31/2022 MICRO: No results for input(s): URINECULTURE in the last 720 hours. Recent Labs 07/22/22 2130 07/24/22 1522 07/24/22 1547 GRAMSTAIN Many Neutrophils seen No microorganisms seen. Few Neutrophils seen No microorganisms seen. Many Neutrophils seen No microorganisms seen. BFCX No growth to date. No growth -- Recent Labs 07/07/22 0341 07/22/22 2115 07/22/22 2247 07/28/22 2311 07/28/22 2327 07/30/22 0514 BLOODCX No growth at 5 days. No growth at 5 days. No growth at 5 days. No growth at 2 days. Pseudomonas oryzihabitans isolated Susceptibility testing in progress * No growth at 1 day. ECG: Recent Labs 07/25/22 1242 DIAGLINE Sinus tachycardia Possible Inferior infarct (cited on or before 07-JUL-2022) Abnormal ECG When compared with ECG of 07-JUL-2022 11:44, Nonspecific T wave abnormality no longer evident in Anterior leads QTCCALC 435 IMAGING: CT L spine w/contrast, CT A/P OTHER Studies: NA Assessment & Plan Assessment and Plan: Tana Cavazos is a 27 y.o. year old female with TBI with spastic quadriplegia, CP, nonverbal, scoliosis, s/p PSF(02/2009), prior bilateral Girdlestone's-2010 who??was recently admitted from 06/24 to 07/09 for lumbar subcutaneous abscesses and E. coli bacteremia s/p aspiration(with aspirate cultures being negative)??on levofloxacin 04/18 who presented to the ED 07/22 with increased redness and purulent drainage from the same area. ESR elevated to 119 and CRP uptrending to 48.9 [address] ??CT imaging of the lumbar spine showed mildly increasing soft tissue collection around the right iliac screw and a dorsal subcutaneous collection at L3 which is larger as well. 07/31/2022: Status post IR drain x 2 on 07/24. Drain output remains minimal. Repeat CT overall showed improvement on the abscesses. We had discussed discharging Tana with PO abx and close follow up, but unfortunately now her blood cultures from 07/28 are positive in 1/4 bottles. This was identified as Pseudomonas oryzihabitans on 07/31, all other cultures have remained negative. Orthopedics was re-engaged and still recommending non-operative management if she remains stable. Unclear the significance of this finding, though suspect this might be a contaminant given it should usually be susceptible FLQ's, was only in a single bottle, and Tana remains well overall. Will await susceptibility, discuss further with ID. If this is concluded to be a contaminant, would be feasible to discharge with outpatient management with continued PO abx, labs (including CRP), close follow up (1-1.5 weeks). Summary of plan with changes for 07/31/2022: ??? Continue levofloxacin ??? Follow up susceptibilities for Pseudomonas oryzihabitans ??? Culture if febrile ??? Appreciate ID recommednations ??? Trending CRP #Lumbar subcutaneous abscesses with markers c/f deep infection - On Levaquin at home, previous blood cultures growing E. coli with aspirate cultures being negative - On levofloxacin per ID. ID feels outpatient management might be a reasonable option, as Ortho still feels that operative management is unfavorable. ?? #TBI with spastic quadriplegia #Cerebral palsy, nonverbal #Scoliosis s/p PSF, prior bilateral Girdlestone -??Continue baclofen 10 Mg p.o. twice daily -??Tylenol as needed # Bundle FENGI: Regular diet DVT Prophylaxis: LMWH LDA: CARMELLA drain x 2, oropeza, PIV Anticipated Disposition: supervisor intermediates care facility Code Status: Attempt Cardiopulmonary Resuscitation - Inpatient Attestation: Attending Attestation and Certification I have examined the patient myself and personally reviewed all studies. In addition, I certify thatI am a [facility] credentialed attending provider with admitting privileges and that the patient meets or has met medical necessity to require an inpatient IPI level of care meeting a minimum of two midnights or is on the [facility] inpatient only procedure list (status C) due to: monitoring of fluid status given an inability to regulate fluid balance and the need for administration or restriction of fluids Team Pager(MD Coverage 17/11): #[phone] PCP: Lorna Bal, HAND HEEL SEAT FITTER [phone] Jamshid Collins MD 07/31/2022 * Paige Gonzalez RN - 07/31/2022 5:14 AM EDT OUTCOME SUMMARY: Pt Alert, Orientation MARYA-nonverbal., VSS, afebrile, no pain, no shortness of breath, and no chest pain noted. O2@RA. CARMELLA drains in place and intact. External cath in place, working properly. No BM on this shift Pt's mom at bedside overnight. Pt remained free from falls during this shift. Assessment as filled, bed in lowest position, all belongings and call light within reach. PLAN MOVING FORWARD: Vitals/Labs Falls prevention D/C INDIVIDUALIZED FALL PREVENTION INTERVENTIONS: Patient-specific fall risk factors per assessment: [current deficits]: High fall risk, weakness, BLE absent movement. Assistance [level of assistance required for transfers and ambulation]: Total 2 person w/lift Supervision [direct monitoring required during toileting and ADLs]: Hands on Surveillance [continuous indirect monitoring]: Gojeeo Bed alarm Room near nurses' station Rounding Patient-specific fall prevention interventions for sensory deficits provided, if applicable: [X] No * Shawn Woodard MD - 07/30/2022 7:28 PM EDT Infectious Disease Follow-Up Antimicrobials: Levofloxacin Events: Repeat BC on 07/28/22 detecting GNR in 1/4 bottles, repeating pending Subjective: Unable to obtain. Nursing staff reports that she is clinically unchanged, though still not quite back to baseline. Physical Exam: BP 121/89 (BP Location (NBP): Left arm, Patient Position: Lying) Pulse (!) 118 Temp 36.5 ??C (97.7 ??F) (Oral) Resp 15 SpO2 98% General: no acute distress, able to track to voice, smiling CV: regular rate and rhythm, no obvious murmurs Resp: clear to auscultation bilaterally; no wheezing, crackles, or rhonchi Abd: soft, non-distended, non-tender on palpation MSK: drains x2 with ongoing yellow output Ext: warm and well-perfused, contracted, no lower extremity edema Skin: no visible rashes Pertinent labs, microbiology, imaging and procedures: Reviewed Impression: In brief, this is a 27 y/o female with cerebral palsy, spastic quadriplegia, scoliosis s/p PSF (02/2009) with residual deformity, bilateral proximal femoral resections (07/2010), and developmental delay who was discovered to have enlarging fluid collections in the thoracolumbar region, one of which involves a dislocated right iliac screw and another extending deep to the spine, on imaging after presenting with ongoing localized erythema overlying her surgical scar with purulent drainage despite antibiotic therapy and prior limited attempts at IR drainage. IR again placed 2 drains on 07/24/22, one in a collection adjacent to right SI screw and another in a collection adjacent to L2/3. Interestingly, repeat blood cultures on 07/28/22 are now growing GNR in 1 of 4 bottles. Unclear if this is the same E Coli as before. Also strange to not be identified by BCID. Given my concerns about the adequacy of source control with drains alone and now possible bacteremia in spite of antibiotic therapy, I think that the prudent thing to do is to have Orthopedics weigh in again on surgical intervention (in particular the dislocated screw). I am not entirely convinced of antibiotic failure, so will not make changes to her regimen for now pending ID/susceptibilitiesof the organism. This is of course assuming that she remains clinically stable. Recommendations: 1. Continue levofloxacin 750mg PO q24h 2. Please re-engage Orthopedics about surgical intervention given positive blood cultures 3. Follow-up BC 4. Periodic CBC w/ diff, CMP, CRP while on above to monitor for toxicity and disease progression Following. Please call with questions. Discussed with attending, Dr. Vance Lundberg, DO ID Fellow Green Team Pager: [phone] I interviewed and examined the patient independently of Dr. Lundberg, but agree with her findings and recommendations after discussion with her and review of her note. I also reviewed with her all pertinent labs, microbiology and radiology detailed above. Surprisingly and very concerningly recent blood culture has now turned positive for a GNR that is unidentified on BCID. This presumably is from deep infection that is being drained, but this raises concern that current medical management with drainage may not be adequate to treat the infection. Given that she is otherwise clinically stable we willdefer adjusting antimicrobials until we have microbiologic identification and sensitivity testing available on the GNR. We will of course also have to repeat blood cultures to ensure that the bacteremia resolves, since if it doesn't it will be an absolute indiction for more aggressive intervention/diagnostics. Shawn Woodard MD * Frankie Duff RN - 07/30/2022 6:56 PM EDT OUTCOME EVALUATION NOTE: OUTCOME SUMMARY: Assumed care of patient. Pt nonverbal. MARYA orientation. Alert and responds to commands. VSS on RA. Medications administered per MAR crushed in chocolate pudding. Pure wick in place, incontinence careprovided. Caregiver at bedside. No acute event during this shift. Will notify MD of any changes. PLAN MOVING FORWARD: ABX D/C planning INDIVIDUALIZED FALL PREVENTION INTERVENTIONS: Patient-specific fall risk factors per assessment: [current deficits]: Quadriplegia, PIV Assistance [level of assistance required for transfers and ambulation]: 2 assist with a lift. Supervision [direct monitoring required during toileting and ADLs]: Hands on Surveillance [continuous indirect monitoring]: Bed alarm on, Masimo on, call light within reach, purposeful rounding. Patient-specific fall prevention interventions for sensory deficits provided, if applicable: [X] N/A CARE PLAN GOAL OUTCOME EVALUATION: * Jamshid Collins MD - 07/30/2022 11:31 AM EDT [facility] Medicine Attending Daily Progress Note Admit Date: 07/22/2022 Hospital Day 8 days Subjective Interval History: ??? No acute events ??? Overnight, cultures from 4/3 became positive for GNR's (not yet identified) ??? Stable VS overnight. ??? Appears less irritable and more comfortable than yesterday, though difficult to assess ??? Nonverbal, unable to voice complaints. Appears in no distress today ROS: Unable to attend Active Hospital Problems Diagnosis ??? Abscess Resolved Hospital Problems No resolved problems to display. PMH Active Non-Hospital Problems Diagnosis ??? 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 ??? Fracture of femur, distal ??? Contracture of elbow ??? Right leg pain ??? Presence of intrathecal baclofen pump ??? Spasticity ??? Scoliosis ??? Edema leg ??? Acquired dysplasia of hip, bilateral ??? 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 lidocaine 1 patch Transdermal Daily ??? levoFLOXacin 750 mg Oral QAM ??? baclofen 10 mg Oral BID ??? polyethylene glycoL 17 g Oral Daily ??? senna 17.2 mg Oral Nightly ??? sodium chloride 0.9 % (flush) 5 mL Intravenous BID ??? senna-docusate 2 tablet Oral BID ??? enoxaparin 30 mg Subcutaneous Nightly Continuous infusions: PRN: ibuprofen, sodium chloride 0.9 % (flush), lidocaine, acetaminophen Objective Physical Exam Vitals Range last 24 hrs Temperature Temp: [35.9 ??C (96.6 ??F)-36.8 ??C (98.2 ??F)] Heart Rate Heart Rate: -- Blood Pressure BP: (97-101)/(56-70) Respiratory Rate Resp: [15-16] SpO2 SpO2: [96 %-100 %] Patient Vitals for the past 24 hrs: Temp Heart Rate From SP02 Resp BP SpO2 O2 Device 07/29/22 1305 35.9 ??C (96.6 ??F) 88 bpm 15 101/63 97 % -- 07/29/22 1953 36.3 ??C (97.3 ??F) 93 bpm 16 98/70 99 % RA 07/30/22 0519 36.4 ??C (97.5 ??F) 88 bpm 16 98/67 96 % RA 07/30/22 1105 36.8 ??C (98.2 ??F) (!) 104 bpm 15 97/56 100 % -- Intake/Output Summary (Last 24 hours) at 07/30/2022 1132 Last data filed at 07/30/2022 0800 Gross per 24 hour Intake 134 ml Output 600 ml Net -466 ml Physical Exam GEN: NAD, makes eye contact, occasionally can verbalize hello or yes HEENT: at/nc, anicteric CV: rrr, no m/r/g PULM: cta b/l, comfortable ABD: soft, nt/nd, nabs EXT: b/l contracted LE with girdlestone procedures Neuro: at baseline Skin: lower back with mild erythema, wounds dressed with two drains in place Studies reviewed in eDH. Remarkable for the following: LABS: Lab Results Component Value Date WBC 4.1 07/30/2022 HGB 9.9 (L) 07/30/2022 HCT 31.7 (L) 07/30/2022 MCV 78.9 (L) 07/30/2022 PLATELET 305 07/30/2022 Lab Results Component Value Date NA 138 07/28/2022 K 3.9 07/28/2022 CL 102 07/28/2022 CO2 25 07/28/2022 BUN 7 (L) 07/28/2022 CREATININE 0.30 (L) 07/28/2022 GLUCOSE 98 07/28/2022 GLUCFASTING 95 07/01/2022 CALCIUM 9.2 07/28/2022 ESTGFR 147 07/28/2022 MICRO: No results for input(s): URINECULTURE in the last 720 hours. Recent Labs 07/22/22 2130 07/24/22 1522 07/24/22 1547 GRAMSTAIN Many Neutrophils seen No microorganisms seen. Few Neutrophils seen No microorganisms seen. Many Neutrophils seen No microorganisms seen. BFCX No growth to date. No growth -- Recent Labs 07/06/22 0621 07/07/22 0341 07/22/22 2115 07/22/22 2247 07/28/22 2311 07/28/22 2327 BLOODCX No growth at 5 days. No growth at 5 days. No growth at 5 days. No growth at 5 days. No growth at 1 day. No organism target detected in Blood Culture Identification Panel by PCR Refer to link [email or web address] for a complete list of organisms. Identification to follow. * ECG: Recent Labs 07/25/22 1242 DIAGLINE Sinus tachycardia Possible Inferior infarct (cited on or before 07-JUL-2022) Abnormal ECG When compared with ECG of 07-JUL-2022 11:44, Nonspecific T wave abnormality no longer evident in Anterior leads QTCCALC 435 IMAGING: CT L spine w/contrast, CT A/P OTHER Studies: NA Assessment & Plan Assessment and Plan: Tana Cavazos is a 27 y.o. year old female with TBI with spastic quadriplegia, CP, nonverbal, scoliosis, s/p PSF(02/2009), prior bilateral Girdlestone's-2010 who??was recently admitted from 06/24 to 07/09 for lumbar subcutaneous abscesses and E. coli bacteremia s/p aspiration(with aspirate cultures being negative)??on levofloxacin 04/18 who presented to the ED 07/22 with increased redness and purulent drainage from the same area. ESR elevated to 119 and CRP uptrending to 48.9 from previous. ??CT imaging of the lumbar spine showed mildly increasing soft tissue collection around the right iliac screw and a dorsal subcutaneous collection at L3 which is larger as well. 07/30/2022: Status post IR drain x 2 on 07/24. Drain output is minimal at this point. Repeat CT overall showed improvement on the abscesses. We had discussed discharging Tana with PO abx and close follow up, but unfortunately now her blood cultures from 07/28 are positive, growing GNR's. Concerned thatthis means we don't truly have adequate source control. Will discuss again with Ortho whether we should pursue operative management; certainly this would not be ideal but with the positive cultures Iworry she may fail the current management. If Ortho still recommends no operative management in the immediate future, could reconsider if outpatient management with continued PO abx, labs (including CRP), close follow up (1-1.5 weeks) would be reasonable. Summary of plan with changes for 07/30/2022: ??? Continue levofloxacin ??? Culture if febrile ??? Re-engage with Ortho, ID today ??? Trending CRP #Lumbar subcutaneous abscesses with markers c/f deep infection - On Levaquin at home, previous blood cultures growing E. coli with aspirate cultures being negative - On levofloxacin per ID. ID feels outpatient management might be a reasonable option, as Ortho still feels that operative management is unfavorable. ?? #TBI with spastic quadriplegia #Cerebral palsy, nonverbal #Scoliosis s/p PSF, prior bilateral Girdlestone -??Continue baclofen 10 Mg p.o. twice daily -??Tylenol as needed # Bundle FENGI: Regular diet DVT Prophylaxis: LMWH LDA: CARMELLA drain x 2, oropeza, PIV Anticipated Disposition: supervisor intermediates care facility Code Status: Attempt Cardiopulmonary Resuscitation - Inpatient Attestation: Attending Attestation and Certification I have examined the patient myself and personally reviewed all studies. In addition, I certify thatI am a D-H credentialed attending provider with admitting privileges and that the patient meets or has met medical necessity to require an inpatient IPI level of care meeting a minimum of two midnights or is on the [facility] inpatient only procedure list (status C) due to: monitoring of fluid status given an inability to regulate fluid balance and the need for administration or restriction of fluids Team Pager(MD Coverage 17/11): [phone] PCP: Lorna Bal, HAND HEEL SE[employer]TER [phone] Jamshid Collins MD 07/30/2022 * Shawn Woodard MD - 07/29/2022 7:29 PM EDT Infectious Disease Follow-Up Antimicrobials: Levofloxacin Events: - Underwent repeat CT lumbar w/ contrast with below findings: IMPRESSION Interval decrease in size of soft tissue attenuation collections areas about each of the two interval placed drains. The degree of decrease is more substantial in the more cephalad of the two areas - Increased coughing yesterday. No new fevers, but tachycardic. Labs with WBC 4.9, lactate 1.7, CRP51.5. CXR clear. UA bland. Blood cultures in progress. RVP detected rhino/enterovirus (+ parainfluenza one month ago). Subjective: Caregiver at bedside noted that Tana had a rough night with coughing episodes and runny nose. She was surprised that there was no fevers since she appeared flush. She is more stable today, though less like herself. Physical Exam: BP 101/63 (BP Location (NBP): Left arm, Patient Position: Lying) Pulse (!) 118 Temp 35.9 ??C (96.6 ??F) (Oral) Resp 15 SpO2 97% General: no acute distress, able to track to voice, smiling CV: regular rate and rhythm, no obvious murmurs Resp: clear to auscultation bilaterally; no wheezing, crackles, or rhonchi Abd: soft, non-distended, non-tender on palpation MSK: drains x2 with minimal output Ext: warm and well-perfused, contracted, no lower extremity edema Skin: no visible rashes Pertinent labs, microbiology, imaging and procedures: Reviewed Impression: In brief, this is a 27 y/o female with cerebral palsy, spastic quadriplegia, scoliosis s/p PSF (02/2009) with residual deformity, bilateral proximal femoral resections (07/2010), and developmental delay who was discovered to have enlarging fluid collections in the thoracolumbar region, one of which involves a dislocated right iliac screw and another extending deep to the spine, on imaging after presenting with ongoing localized erythema overlying her surgical scar with purulent drainage despite antibiotic therapy and prior limited attempts at IR drainage. IR again placed 2 drains on 07/24/22, one in a collection adjacent to right SI screw and another in a collection adjacent to L2/3. Other than confirmed rhino/enterovirus infection in the setting of a new cough and runny nose yesterday, Tana has remained otherwise stable without any systemic manifestations of infection noted. Repeat CT lumbar demonstrates slight decrease in the soft tissue collections following interval placeddrains, more pronounced in the cephalad one. We are again left with sparse microbiology save for the E Coli bloodstream isolate during her prior admission on 07/03/22 that is presumably related given presence of these same spinal fluid collections at the time. I spoke with the primary team and Orthopedics about potential next steps, as my concern is of the adequacy of source control with drains based on her clinical trajectory thus far. I do not feel that her stagnant progress is the result of antibiotic failure, as cultures have repeatedly failed to identify any organism outside of the previously mentioned E Coli. The overall consensus from their end is for a trial of conservative management with drains in an attempt to avoid surgery, unless an indication arises. We therefore elected through shared- decision to continue levofloxacin with weekly laboratory monitoring. CRP right now is 51.5, slightly up from before, but difficult to interpret with her new rhino/enterovirus infection. Duration of antibiotics will likely be prolonged, on the order of several weeks, and ultimately guided by clinical course and serial imaging. Should repeat lumbar imaging show persistent fluid collections or if the patient clinically worsens in any way, we willhave to consider the option of surgical debridement with removal of the dislocated screw by Orthoped ics to optimally address her infection Recommendations: 1. Continue levofloxacin 750mg PO q24h ?? Advised to avoid co-administration with dairy products, multivitamins, and divalent cations 2. Weekly CBC, CMP, CRP while on above to monitor for toxicity and disease progression 3. Duration of therapy tentatively set at 6 weeks from most recent drain placement (anticipated enddate: 09/04/22) 4. Will need repeat CT lumbar in the next couple of weeks 5. ID follow-up scheduled on 08/07/22 We will sign off. Please call with questions. Discussed with attending, Dr. Vance Lundberg DO ID Fellow [place] Team Pager: [phone] I interviewed and examined the patient independently from Dr. Lundberg, but agree with her findings and recommendations after discussion with her and review of her note. I also reviewed with her all pertinent labs, microbiology and radiology detailed above. We agree with plan for trial of medical treatment, though likelihood of success is far from certain, so would transition to ambulatory management as above. Shawn Woodard MD * Chrissie Lundberg DO - 07/29/2022 3:28 PM EDT DH OPAT INTAKE: Diagnosis: Osteomyelitis + hardware infection, Antibiotic Type: PO, Organism(s): E.coli, Antibiotic(s) being taken: Levofloxacin (750mg PO q24h) With a start date of 07/24/2022, and anticipated end date of 09/04/2022. Desired labs: CBC w/diff, CMP and CRP. Lab frequency: Weekly Other: Desired timing of end of therapy appointment: Week of: 09/01/2022. Other speciality appointments to coordinate with: Yes Which speciality?: Ortho Dialysis patient?: No Imaging needed?: Yes What study?: CT lumbar w/ contrast Who is ordering?: to be ordered Preferred provider for end of therapy visit: whoever is available ([facility] already scheduled follow-up) * Jamshid Collins MD - 07/29/2022 1:27 PM EDT Hospital Medicine Attending Daily Progress Note Admit Date: 07/22/2022 Hospital Day 7 days Subjective Interval History: ??? No acute events ??? Noted to be coughing/sneezing much more yesterday. RN concerned and as a result ordered respiratory panel and CXR. ??? Panel positive for entero/rhinovirus. CXR unremarkable. ??? Stable VS overnight. Afebrile but RN reported patient felt warm ??? This morning, appears somewhat irritable but occasionally smiles and waves ??? Nonverbal, unable to voice complaints. Appears in no distress today ROS: Unable to attend Active Hospital Problems Diagnosis ??? Abscess Resolved Hospital Problems No resolved problems to display. PM Active Non-Hospital Problems Diagnosis ??? 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 ??? Fracture of femur, distal ??? Contracture of elbow ??? Right leg pain ??? Presence of intrathecal baclofen pump ??? Spasticity ??? Scoliosis ??? Edema leg ??? Acquired dysplasia of hip, bilateral ??? 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 lidocaine 1 patch Transdermal Daily ??? levoFLOXacin 750 mg Oral QAM ??? baclofen 10 mg Oral BID ??? polyethylene glycoL 17 g Oral Daily ??? senna 17.2 mg Oral Nightly ??? sodium chloride 0.9 % (flush) 5 mL Intravenous BID ??? senna-docusate 2 tablet Oral BID ??? enoxaparin 30 mg Subcutaneous Nightly Continuous infusions: PRN: ibuprofen, sodium chloride 0.9 % (flush), lidocaine, acetaminophen Objective Physical Exam Vitals Range last 24 hrs Temperature Temp: [35.9 ??C (96.6 ??F)-37.3 ??C (99.1 ??F)] Heart Rate Heart Rate: [118] Blood Pressure BP: (101-126)/(63-84) Respiratory Rate Resp: [15-20] SpO2 SpO2: [97 %-98 %] Patient Vitals for the past 24 hrs: Temp Heart Rate From SP02 Pulse Resp BP SpO2 O2 Device 07/28/22 1746 37.1 ??C (98.8 ??F) (!) 124 bpm -- 20 126/77 98 % -- 07/28/22 2217 37.3 ??C (99.1 ??F) (!) 120 bpm (!) 118 16 111/66 98 % RA 07/29/22 0203 36.8 ??C (98.2 ??F) 96 bpm -- -- -- 97 % RA 07/29/22 0551 36.7 ??C (98.1 ??F) 96 bpm -- 16 109/84 97 % RA 07/29/22 1305 35.9 ??C (96.6 ??F) 88 bpm -- 15 101/63 97 % -- Intake/Output Summary (Last 24 hours) at 07/29/2022 1328 Last data filed at 07/29/2022 0821 Gross per 24 hour Intake 1678 ml Output 1510.5 ml Net 167.5 ml Physical Exam GEN: NAD, makes eye contact, occasionally can verbalize hello or yes HEENT: at/nc, anicteric CV: rrr, no m/r/g PULM: cta b/l, comfortable ABD: soft, nt/nd, nabs EXT: b/l contracted LE with girdlestone procedures Neuro: at baseline Skin: lower back with mild erythema, wounds dressed with two drains in place Studies reviewed in eDH. Remarkable for the following: LABS: Lab Results Component Value Date WBC 4.9 07/28/2022 HGB 10.0 (L) 07/28/2022 HCT 32.3 (L) 07/28/2022 MCV 79.6 (L) 07/28/2022 PLATELET 303 07/28/2022 Lab Results Component Value Date NA 138 07/28/2022 K 3.9 07/28/2022 CL 102 07/28/2022 CO2 25 07/28/2022 BUN 7 (L) 07/28/2022 CREATININE 0.30 (L) 07/28/2022 GLUCOSE 98 07/28/2022 GLUCFASTING 95 07/01/2022 CALCIUM 9.2 07/28/2022 ESTGFR 147 07/28/2022 MICRO: No results for input(s): URINECULTURE in the last 720 hours. Recent Labs 07/22/22 2130 07/24/22 1522 07/24/22 1547 GRAMSTAIN Many Neutrophils seen No microorganisms seen. Few Neutrophils seen No microorganisms seen. Many Neutrophils seen No microorganisms seen. BFCX No growth to date. No growth -- Recent Labs 07/03/22 2245 07/03/22 2305 07/06/22 0621 07/07/22 0341 07/22/22 2115 07/22/22 2247 BLOODCX No growth at 5 days. Escherichia coli detected by PCR Isolate saved. If future testing is required, contact the [facility]. * No growth at 5 days. No growth at 5 days. No growth at 5 days. No growth at 5 days. ECG: Recent Labs 07/25/22 1242 DIAGLINE Sinus tachycardia Possible Inferior infarct (cited on or before 07-JUL-2022) Abnormal ECG When compared with ECG of 07-JUL-2022 11:44, Nonspecific T wave abnormality no longer evident in Anterior leads QTCCALC 435 IMAGING: CT L spine w/contrast, CT A/P OTHER Studies: NA Assessment & Plan Assessment and Plan: Tana Cavazos is a 27 y.o. year old female with TBI with spastic quadriplegia, CP, nonverbal, scoliosis, s/p PSF(02/2009), prior bilateral Girdlestone's-2010 who??was recently admitted from 06/24 to 07/09 for lumbar subcutaneous abscesses and E. coli bacteremia s/p aspiration(with aspirate cultures being negative)??on levofloxacin 04/18 who presented to the ED 07/22 with increased redness and purulent drainage from the same area. ESR elevated to 119 and CRP uptrending to 48.9 from previous. ??CT imaging of the lumbar spine showed mildly increasing soft tissue collection around the right iliac screw and a dorsal subcutaneous collection at L3 which is larger as well. 07/29/2022: Status post IR drain x 2 on 07/24. Drain output is minimal at this point. Repeat CT overall showed improvement on the abscesses. Discussed with ID today that Ortho still feels operative management is not favored due to radiographic improvement. If no plans for OR in the immediate future, ID feels outpatient management with continued PO abx, labs (including CRP), close follow up (1-1.5 weeks) would be reasonable. Summary of plan with changes for 07/29/2022: ??? Continue levofloxacin ? ? Culture if T > 101.5 ??? Trending CRP #Lumbar subcutaneous abscesses with markers c/f deep infection - On Levaquin at home, previous blood cultures growing E. coli with aspirate cultures being negative - On levofloxacin per ID. ID feels outpatient management might be a reasonable option, as Ortho still feels that operative management is unfavorable. ?? #TBI with spastic quadriplegia #Cerebral palsy, nonverbal #Scoliosis s/p PSF, prior bilateral Girdlestone -??Continue baclofen 10 Mg p.o. twice daily -??Tylenol as needed # Bundle FENGI: Regular diet DVT Prophylaxis: LMWH LDA: CARMELLA drain x 2, oropeza, PIV Anticipated Disposition: supervisor intermediates care facility Code Status: Attempt Cardiopulmonary Resuscitation - Inpatient Attestation: Attending Attestation and Certification I have examined the patient myself and personally reviewed all studies. In addition, I certify thatI am a D-H credentialed attending provider with admitting privileges and that the patient meets or has met medical necessity to require an inpatient IPI level of care meeting a minimum of two midnights or is on the [facility] inpatient only procedure list (status C) due to: monitoring of fluid status given an inability to regulate fluid balance and the need for administration or restriction of fluids Team Pager(MD Coverage 17/11): [phone] PCP: Lorna Bal, HAND HEEL SEAT FITTER [phone] Jamshid Collins MD 07/29/2022 * Jamshid Collins MD - 07/28/2022 7:31 AM EDT Hospital Medicine Attending Daily Progress Note Admit Date: 07/22/2022 Hospital Day 6 days Subjective Interval History: ??? No acute events ??? Tachy again overnight. Given another IVF bolus with good response. Limited UOP noted overnight. ??? Nonverbal, unable to voice complaints. Appears in no distress today ??? Per Caregiver at the bedside, has new runny nose this morning ROS: Unable to attend Active Hospital Problems Diagnosis ??? Abscess Resolved Hospital Problems No resolved problems to display. PMH Active Non-Hospital Problems Diagnosis ??? 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 ??? Fracture of femur, distal ??? Contracture of elbow ??? Right leg pain ??? Presence of intrathecal baclofen pump ??? Spasticity ??? Scoliosis ??? Edema leg ??? Acquired dysplasia of hip, bilateral ??? 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 levoFLOXacin 750 mg Oral QAM ??? baclofen 10 mg Oral BID ??? polyethylene glycoL 17 g Oral Daily ??? senna 17.2 mg Oral Nightly ??? sodium chloride 0.9 % (flush) 5 mL Intravenous BID ??? senna-docusate 2 tablet Oral BID ??? enoxaparin 30 mg Subcutaneous Nightly Continuous infusions: PRN: sodium chloride 0.9 % (flush), lidocaine, acetaminophen Objective Physical Exam Vitals Range last 24 hrs Temperature Temp: [37.1 ??C (98.8 ??F)] Heart Rate Heart Rate: [106-122] Blood Pressure BP: (97-113)/(64-69) Respiratory Rate Resp: [16] SpO2 SpO2: [96 %-100 %] Patient Vitals for the past 24 hrs: Temp Heart Rate From SP02 Pulse Resp BP SpO2 O2 Device 07/27/22 1155 -- (!) 113 bpm -- -- -- 99 % -- 07/27/22 1200 -- (!) 130 bpm -- -- -- 99 % -- 07/27/22 1205 -- (!) 111 bpm -- -- -- 99 % -- 07/27/22 1210 -- (!) 113 bpm -- -- -- 98 % -- 07/27/22 1215 -- (!) 107 bpm -- -- -- 98 % -- 07/27/22 1220 -- (!) 117 bpm -- -- -- 98 % -- 07/27/22 1225 -- (!) 115 bpm -- -- -- 99 % -- 07/27/22 1230 -- (!) 115 bpm -- -- -- 98 % -- 07/27/22 1235 -- (!) 115 bpm -- -- -- 98 % -- 07/27/22 1240 -- (!) 113 bpm -- -- -- 97 % -- 07/27/22 1245 -- (!) 109 bpm -- -- -- 98 % -- 07/27/22 1250 -- (!) 110 bpm -- -- -- 98 % -- 07/27/22 1255 -- (!) 112 bpm -- -- -- 98 % -- 07/27/22 1300 -- (!) 107 bpm -- -- -- 98 % -- 07/27/22 1305 -- (!) 105 bpm -- -- -- 98 % -- 07/27/22 1310 -- (!) 113 bpm -- -- -- 98 % -- 07/27/22 1315 -- (!) 111 bpm -- -- -- 98 % -- 07/27/22 1320 -- (!) 121 bpm -- -- -- 99 % -- 07/27/22 1325 -- (!) 119 bpm -- -- -- 98 % -- 07/27/22 1330 -- (!) 114 bpm -- -- -- 98 % -- 07/27/22 1335 -- (!) 115 bpm -- -- -- 98 % -- 07/27/22 1340 -- (!) 112 bpm -- -- -- 99 % -- 07/27/22 1345 -- (!) 106 bpm -- -- -- 98 % -- 07/27/22 1350 -- (!) 109 bpm -- -- -- 96 % -- 07/27/22 1355 -- 88 bpm -- -- -- 97 % -- 07/27/22 1400 -- (!) 117 bpm -- -- -- 98 % -- 07/27/22 1405 -- (!) 117 bpm -- -- -- 96 % -- 07/27/22 1410 -- (!) 106 bpm -- -- -- 98 % -- 07/27/22 1415 -- (!) 119 bpm -- -- -- 97 % -- 07/27/22 1420 -- (!) 108 bpm -- -- -- 97 % -- 07/27/22 1425 -- (!) 144 bpm -- -- -- 99 % -- 07/27/22 1430 -- (!) 119 bpm -- -- -- 98 % -- 07/27/22 1435 -- (!) 112 bpm -- -- -- 98 % -- 07/27/22 1440 -- (!) 111 bpm -- -- -- 98 % -- 07/27/22 1445 -- (!) 118 bpm -- -- -- 98 % -- 07/27/22 1450 -- (!) 109 bpm -- -- -- 98 % -- 07/27/22 1455 -- 100 bpm -- -- -- 97 % -- 07/27/22 1500 -- (!) 118 bpm -- -- -- 96 % -- 07/27/22 1505 -- (!) 113 bpm -- -- -- 98 % -- 07/27/22 1510 -- (!) 110 bpm -- -- -- 98 % -- 07/27/22 1515 -- (!) 107 bpm -- -- -- 98 % -- 07/27/22 1520 -- (!) 118 bpm -- -- -- 98 % -- 07/27/22 1525 -- (!) 104 bpm -- -- -- 98 % -- 07/27/22 1530 -- (!) 115 bpm -- -- -- 98 % -- 07/27/22 1535 -- (!) 110 bpm -- -- -- 99 % -- 07/27/22 1540 -- 97 bpm -- -- -- 98 % -- 07/27/22 1545 -- (!) 110 bpm -- -- -- 97 % -- 07/27/22 1550 -- (!) 117 bpm -- -- -- 97 % -- 07/27/22 1555 -- (!) 117 bpm -- -- -- 98 % -- 07/27/22 1600 -- (!) 109 bpm -- -- -- 98 % -- 07/27/22 1605 -- (!) 107 bpm -- -- -- 98 % -- 07/27/22 1610 -- (!) 104 bpm -- -- -- 98 % -- 07/27/22 1615 -- (!) 105 bpm -- -- -- 98 % -- 07/27/22 1620 -- (!) 105 bpm -- -- -- 98 % -- 07/27/22 1625 -- (!) 117 bpm -- -- -- 98 % -- 07/27/22 1630 -- (!) 109 bpm -- -- -- 98 % -- 07/27/22 1635 -- (!) 114 bpm -- -- -- 98 % -- 07/27/22 1640 -- (!) 108 bpm -- -- -- 98 % -- 07/27/22 164 -- (!) 118 bpm -- -- -- 98 % -- 07/27/22 1650 -- (!) 121 bpm -- -- -- 99 % -- 07/27/221654 -- (!) 117 bpm -- -- -- 97 % -- 07/27/221699 -- (!) 118 bpm -- -- -- 99 % -- 07/27/221704 -- (!) 115 bpm -- -- -- 98 % -- 07/27/221709 -- (!) 102 bpm -- -- -- 98 % -- 07/27/221714 -- (!) 103 bpm -- -- -- 100 % -- 07/27/221719 -- (!) 106 bpm -- -- -- 97 % -- 07/27/221724 -- (!) 103 bpm -- -- -- 99 % -- 07/27/221729 -- (!) 101 bpm -- -- -- 98 % -- 07/27/221734 -- (!) 118 bpm -- -- -- 99 % -- 07/27/221739 -- (!) 116 bpm -- -- -- 98 % -- 07/27/221744 -- (!) 111 bpm -- -- -- 99 % -- 07/27/221749 -- (!) 116 bpm -- -- -- 98 % -- 07/27/221751 -- (!) 116 bpm -- -- 113/68 100 % -- 07/27/22 2303 37.1 ??C (98.8 ??F) (!) 114 bpm (!) 122 16 99/69 97 % RA 07/28/22 0504 37.1 ??C (98.8 ??F) 96 bpm (!) 106 16 97/64 97 % RA 07/28/22 1049 -- -- -- -- -- -- RA Intake/Output Summary (Last 24 hours) at 07/28/2022 1150 Last data filed at 07/28/2022 0505 Gross per 24 hour Intake 20 ml Output 1199.5 ml Net -1179.5 ml Physical Exam GEN: NAD, makes eye contact, occasionally can verbalize hello or yes HEENT: at/nc, anicteric CV: rrr, no m/r/g PULM: cta b/l, comfortable ABD: soft, nt/nd, nabs EXT: b/l contracted LE with girdlestone procedures Neuro: at baseline Skin: lower back with mild erythema, wounds dressed with two drains in place Studies reviewed in eDH. Remarkable for the following: LABS: Lab Results Component Value Date WBC 4.4 07/28/2022 HGB 9.5 (L) 07/28/2022 HCT 30.3 (L) 07/28/2022 MCV 79.1 (L) 07/28/2022 PLATELET 295 07/28/2022 Lab Results Component Value Date NA 138 07/28/2022 K 4.0 07/28/2022 CL 103 07/28/2022 CO2 25 07/28/2022 BUN 10 07/28/2022 CREATININE 0.28 (L) 07/28/2022 GLUCOSE 91 07/28/2022 GLUCFASTING 95 07/01/2022 CALCIUM 8.8 07/28/2022 ESTGFR 150 07/28/2022 MICRO: No results for input(s): URINECULTURE in the last 720 hours. Recent Labs 07/22/22 2130 07/24/22 1522 07/24/22 1547 GRAMSTAIN Many Neutrophils seen No microorganisms seen. Few Neutrophils seen No microorganisms seen. Many Neutrophils seen No microorganisms seen. BFCX No growth to date. No growth -- Recent Labs 07/03/22 2245 07/03/22 2305 07/06/22 0621 07/07/22 0341 07/22/22 2115 07/22/22 2247 BLOODCX No growth at 5 days. Escherichia coli detected by PCR Isolate saved. If future testing is required, contact the Micro[facility] Fore[facility]. * No growth at 5 days. No growth at 5 days. No growth at 5 days. No growth at 5 days. ECG: Recent Labs 07/25/22 1242 DIAGLINE Sinus tachycardia Possible Inferior infarct (cited on or before 07-JUL-2022) Abnormal ECG When compared with ECG of 07-JUL-2022 11:44, Nonspecific T wave abnormality no longer evident in Anterior leads QTCCALC 435 IMAGING: CT L spine w/contrast, CT A/P OTHER Studies: NA Assessment & Plan Assessment and Plan: Tana Cavazos is a 27 y.o. year old female with TBI with spastic quadriplegia, CP, nonverbal, scoliosis, s/p PSF(02/2009), prior bilateral Girdlestone's-2010 who??was recently admitted from 06/24 to 07/09 for lumbar subcutaneous abscesses and E. coli bacteremia s/p aspiration(with aspirate cultures being negative)??on levofloxacin 04/18 who presented to the ED 07/22 with increased redness and purulent drainage from the same area. ESR elevated to 119 and CRP uptrending to 48.9 from previous. ??CT imaging of the lumbar spine showed mildly increasing soft tissue collection around the right iliac screw and a dorsal subcutaneous collection at L3 which is larger as well. 07/28/2022: Status post IR drain x 2 on 07/24. Drain output is minimal at this point. Clinically appears well, no changes on physical exam. CRP is slightly higher today (27 --> 33.1). Will obtain repeat CT of her lumbar spine today to re-evaluate the abscesses. If they appear worse or there is significant clinical change will re-engage with Ortho to advocate for more definitive treatment. Note she has been somewhat tachy in the evenings recently, with less UOP. Suspect perhaps a little behind on fluid intake. Will give her some more fluids today and monitor. Summary of plan with changes for 07/28/2022: ??? Continue levofloxacin ? ? Culture if T > 101.5 ??? Trending CRP ??? Plan CT L-spine today ??? IVF today, monitor UOP #Lumbar subcutaneous abscesses with markers c/f deep infection - On Levaquin at home, previous blood cultures growing E. coli with aspirate cultures being negative - On levofloxacin per ID. Both ID and I feel source control was not obtained with abx and drainage and would advocate for surgical debridement. For now ortho spine is saying to have IR drain. Following response but if inflammatory markers remain elevated would continue to advocate for more definitive treatment ?? #TBI with spastic quadriplegia #Cerebral palsy, nonverbal #Scoliosis s/p PSF, prior bilateral Girdlestone -??Continue baclofen 10 Mg p.o. twice daily -??Tylenol as needed # Bundle FENGI: Regular diet DVT Prophylaxis: LMWH LDA: CARMELLA drain x 2, oropeza, PIV Anticipated Disposition: supervisor intermediates care facility Code Status: Attempt Cardiopulmonary Resuscitation - Inpatient Attestation: Attending Attestation and Certification I have examined the patient myself and personally reviewed all studies. In addition, I certify thatI am a D-H credentialed attending provider with admitting privileges and that the patient meets or has met medical necessity to require an inpatient IPI level of care meeting a minimum of two midnights or is on the [facility] inpatient only procedure list (status C) due to: monitoring of fluid status given an inability to regulate fluid balance and the need for administration or restriction of fluids Team Pager( Coverage 17/11): #[phone] PCP: Lorna Bal, HAND HEEL SEAT FITTER [phone] Jamshid Collins MD 07/28/2022 * Margy Mtz RN - 07/27/2022 5:58 PM EDT OUTCOME EVALUATION NOTE: ?? OUTCOME SUMMARY: ?? Pt non-verbal. Pleasant and caregiver helps facilitate communication. VSS on RA. Pt tachycardic, was sustaining 120 BPM couple of times and during med pass HR got up to 140 BPM for few seconds. aware. TELE in place. Sinus Tach all day 100-120. Incontinence care provided as needed. Turns Q2. CARMELLA drains in place and drains serosanguineous fluid. Output for the day shift 5 & 10 mL. Drains flushed per order. BMX1. ?? PLAN MOVING FORWARD: ?? Monitor VS. Abx. DC plan ?? INDIVIDUALIZED FALL PREVENTION INTERVENTIONS: ?? Patient-specific fall risk factors per assessment: [current deficits]: quadraplegia ?? Assistance [level of assistance required for transfers and ambulation]: dependent ?? Supervision [direct monitoring required during toileting and ADLs]: Hands on ?? Surveillance [continuous indirect monitoring]: Purposeful rounding, room near nursing station ?? Patient-specific fall prevention interventions for sensory deficits provided, if applicable: N/A * Jamshid Collins MD - 07/27/2022 7:32 AM EDT Hospital Medicine Attending Daily Progress Note Admit Date: 07/22/2022 Hospital Day 5 days Subjective Interval History: ??? No acute events ??? Overnight, tachy when given medications. Prompted IVF bolus and labs notable for normal lactate. ??? Nonverbal, unable to voice complaints. Appears in no distress today ??? CARMELLA drain output much less yesterday compared with day prior ROS: Unable to attend Active Hospital Problems Diagnosis ??? Abscess Resolved Hospital Problems No resolved problems to display. PMH Active Non-Hospital Problems Diagnosis ??? 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 ??? Fracture of femur, distal ??? Contracture of elbow ??? Right leg pain ??? Presence of intrathecal baclofen pump ??? Spasticity ??? Scoliosis ??? Edema leg ??? Acquired dysplasia of hip, bilateral ??? 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 levoFLOXacin 750 mg Oral QAM ??? baclofen 10 mg Oral BID ??? polyethylene glycoL 17 g Oral Daily ??? senna 17.2 mg Oral Nightly ??? sodium chloride 0.9 % (flush) 5 mL Intravenous BID ??? senna-docusate 2 tablet Oral BID ??? enoxaparin 30 mg Subcutaneous Nightly Continuous infusions: PRN: sodium chloride 0.9 % (flush), lidocaine, acetaminophen Objective Physical Exam Vitals Range last 24 hrs Temperature Temp: [35.8 ??C (96.4 ??F)-36.7 ??C (98.1 ??F)] Heart Rate Heart Rate: -- Blood Pressure BP: (114-133)/(72-94) Respiratory Rate Resp: [16-18] SpO2 SpO2: [97 %-98 %] Patient Vitals for the past 24 hrs: Temp Heart Rate From SP02 Resp BP SpO2 O2 Device 07/26/22 1215 35.8 ??C (96.4 ??F) 96 bpm 18 114/72 98 % RA 07/26/22 1804 36.3 ??C (97.3 ??F) (!) 102 bpm 17 124/81 97 % RA 07/26/22 2048 36.7 ??C (98.1 ??F) (!) 137 bpm 16 (!) 133/94 97 % RA Intake/Output Summary (Last 24 hours) at 07/27/2022 0732 Last data filed at 07/27/2022 0500 Gross per 24 hour Intake 128 ml Output 464 ml Net -336 ml Physical Exam GEN: NAD, makes eye contact, occasionally can verbalize hello or yes HEENT: at/nc, anicteric CV: rrr, no m/r/g PULM: cta b/l, comfortable ABD: soft, nt/nd, nabs EXT: b/l contracted LE with girdlestone procedures Neuro: at baseline Skin: lower back with mild erythema, one area over lumbar suture line with active purulence, lower area with palpable fluctuance Studies reviewed in eDH. Remarkable for the following: LABS: Lab Results Component Value Date WBC 5.3 07/27/2022 HGB 10.4 (L) 07/27/2022 HCT 33.6 (L) 07/27/2022 MCV 78.7 (L) 07/27/2022 PLATELET 350 07/27/2022 Lab Results Component Value Date NA 139 07/27/2022 K 4.1 07/27/2022 CL 103 07/27/2022 CO2 25 07/27/2022 BUN 12 07/27/2022 CREATININE 0.35 (L) 07/27/2022 GLUCOSE 105 07/27/2022 GLUCFASTING 95 07/01/2022 CALCIUM 9.3 07/27/2022 ESTGFR 142 07/27/2022 MICRO: No results for input(s): URINECULTURE in the last 720 hours. Recent Labs 07/22/2207/24/23 1522 07/24/22 1547 GRAMSTAIN Many Neutrophils seen No microorganisms seen. Few Neutrophils seen No microorganisms seen. Many Neutrophils seen No microorganisms seen. BFCX No growth to date. No growth to date. -- Recent Labs 07/03/22 2245 07/03/22 2305 07/06/22 0621 07/07/22 0341 07/22/22 2115 07/22/22 2247 BLOODCX No growth at 5 days. Escherichia coli detected by PCR Isolate saved. If future testing is required, contact the Microbiology Shop Foreman. * No growth at 5 days. No growth at 5 days. No growth at 4 days. No growth at 4 days. ECG: Recent Labs 07/25/22 1242 DIAGLINE Sinus tachycardia Possible Inferior infarct (cited on or before 07-JUL-2022) Abnormal ECG When compared with ECG of 07-JUL-2022 11:44, Nonspecific T wave abnormality no longer evident in Anterior leads QTCCALC 435 IMAGING: CT L spine w/contrast, CT A/P OTHER Studies: NA Assessment & Plan Assessment and Plan: Tana Cavazos is a 27 y.o. year old female with TBI with spastic quadriplegia, CP, nonverbal, scoliosis, s/p PSF(02/2009), prior bilateral Girdlestone's-2010 who??was recently admitted from 06/24 to 07/09 for lumbar subcutaneous abscesses and E. coli bacteremia s/p aspiration(with aspirate cultures being negative)??on levofloxacin 04/18 who presented to the ED 07/22 with increased redness and purulent drainage from the same area. ESR elevated to 119 and CRP uptrending to 48.9 from previous. ??CT imaging of the lumbar spine showed mildly increasing soft tissue collection around the right iliac screw and a dorsal subcutaneous collection at L3 which is larger as well. 07/27/2022: Status post IR drain x 2 on 07/24. Drain output significantly less yesterday than day before. Clinically appears well, no changes on physical exam. Continues to get irritable and tachycardicat times, especially when being given medications. Her CRP has trended down since the drains were placed (40.5 --> 27 today). Discussed with ID today, will continue to trend CRP and will get CT lum bar spine tomorrow to re-evaluate abscesses. If CRP rises or clinical change will re-engage with Ortho to advocate for more definitive treatment. Summary of plan with changes for 07/27/2022: ??? Continue levofloxacin ? ? Culture if T > 101.5 ??? Trending CRP ??? Plan CT L-spine early this coming week #Lumbar subcutaneous abscesses with markers c/f deep infection - On Levaquin at home, previous blood cultures growing E. coli with aspirate cultures being negative - On levofloxacin per ID. Both ID and I feel source control was not obtained with abx and drainage and would advocate for surgical debridement. For now ortho spine is saying to have IR drain. Following response but if inflammatory markers remain elevated would continue to advocate for more definitive treatment ?? #TBI with spastic quadriplegia #Cerebral palsy, nonverbal #Scoliosis s/p PSF, prior bilateral Girdlestone -??Continue baclofen 10 Mg p.o. twice daily -??Tylenol as needed # Bundle FENGI: Regular diet DVT Prophylaxis: LMWH LDA: CARMELLA drain x 2, oropeza, PIV Anticipated Disposition: supervisor intermediates care facility Code Status: Attempt Cardiopulmonary Resuscitation - Inpatient Attestation: Attending Attestation and Certification I have examined the patient myself and personally reviewed all studies. In addition, I certify thatI am a [facility] credentialed attending provider with admitting privileges and that the patient meets or has met medical necessity to require an inpatient IPI level of care meeting a minimum of two midnights or is on the [facility] inpatient only procedure list (status C) due to: monitoring of fluid status given an inability to regulate fluid balance and the need for administration or restriction of fluids Team Pager( Coverage 17/11): #[phone] PCP: Lorna Bal, HAND HEEL SEAT FITTER [phone] Jamshid Collins MD 07/27/2022 * Citlali Mcdonald RN - 07/27/2022 5:37 AM EDT .. OUTCOME EVALUATION NOTE: OUTCOME SUMMARY: Pt is non-verbal with a pleasant countenance. BP stable HR irregular. Placed on Telemetry. LactatedRingers 250mL/hr over 4 hours given on RA, no distressed noted. Rested between care. Incontinence care provided. No distress noted PLAN MOVING FORWARD: D/c planning IV abx INDIVIDUALIZED FALL PREVENTION INTERVENTIONS: Patient-specific fall risk factors per assessment: [current deficits]: quadreplegia Assistance [level of assistance required for transfers and ambulation]: dependent Supervision [direct monitoring required during toileting and ADLs]: Hands on Surveillance [continuous indirect monitoring]: Purposeful rounding Patient-specific fall prevention interventions for sensory deficits provided, if applicable: na CARE PLAN GOAL OUTCOME EVALUATION: * Margy Mtz RN - 07/26/2022 6:36 PM EDT OUTCOME EVALUATION NOTE: OUTCOME SUMMARY: Pt non-verbal. Pleasant and caregiver helps facilitate communication. VSS on RA. Incontinence care provided as needed. Turns Q2. CARMELLA drains in place and drains serosanguineous fluid. Output for the day shift 3 & 11 mL. PLAN MOVING FORWARD: Monitor VS. Abx. DC plan INDIVIDUALIZED FALL PREVENTION INTERVENTIONS: Patient-specific fall risk factors per assessment: [current deficits]: quadraplegia Assistance [level of assistance required for transfers and ambulation]: dependent Supervision [direct monitoring required during toileting and ADLs]: Hands on Surveillance [continuous indirect monitoring]: Purposeful rounding, room near nursing station Patient-specific fall prevention interventions for sensory deficits provided, if applicable: N/A CARE PLAN GOAL OUTCOME EVALUATION: * Jamshid Collins MD - 07/26/2022 7:25 AM EDT Hospital Medicine Attending Daily Progress Note Admit Date: 07/22/2022 Hospital Day 4 days Subjective Interval History: ??? No acute events ??? Nonverbal, unable to voice complaints. Appears in no distress today ??? Per Caregiver Shonna, Tana is more energetic and seems happier and less irritable after her drains were placed ROS: Unable to attend Active Hospital Problems Diagnosis ??? Abscess Resolved Hospital Problems No resolved problems to display. PMH Active Non-Hospital Problems Diagnosis ??? 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 ??? Fracture of femur, distal ??? Contracture of elbow ??? Right leg pain ??? Presence of intrathecal baclofen pump ??? Spasticity ??? Scoliosis ??? Edema leg ??? Acquired dysplasia of hip, bilateral ??? 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 levoFLOXacin 750 mg Oral QAM ??? baclofen 10 mg Oral BID ??? polyethylene glycoL 17 g Oral Daily ??? senna 17.2 mg Oral Nightly ??? sodium chloride 0.9 % (flush) 5 mL Intravenous BID ??? senna-docusate 2 tablet Oral BID ??? enoxaparin 30 mg Subcutaneous Nightly Continuous infusions: PRN: sodium chloride 0.9 % (flush), lidocaine, acetaminophen Objective Physical Exam Vitals Range last 24 hrs Temperature Temp: [36.5 ??C (97.7 ??F)-36.7 ??C (98.1 ??F)] Heart Rate Heart Rate: -- Blood Pressure BP: (92-119)/(56-80) Respiratory Rate Resp: [14-17] SpO2 SpO2: [97 %-99 %] Patient Vitals for the past 24 hrs: Temp Heart Rate From SP02 Resp BP SpO2 O2 Device 07/25/22 1205 36.5 ??C (97.7 ??F) (!) 101 bpm 14 105/80 98 % -- 07/25/22 1812 36.6 ??C (97.9 ??F) (!) 123 bpm -- 119/78 99 % -- 07/25/222024 36.7 ??C (98.1 ??F) (!) 105 bpm 16 92/56 98 % RA 07/26/22 0432 36.7 ??C (98.1 ??F) 82 bpm 17 96/58 97 % RA Intake/Output Summary (Last 24 hours) at 07/26/2022 0725 Last data filed at 07/26/2022 0336 Gross per 24 hour Intake 220 ml Output 1210 ml Net -990 ml Physical Exam GEN: NAD, makes eye contact, answers most questions with yes HEENT: at/nc, anicteric CV: rrr, no m/r/g PULM: cta b/l, comfortable ABD: soft, nt/nd, nabs EXT: b/l contracted LE with girdlestone procedures Neuro: at baseline Skin: lower back with mild erythema, one area over lumbar suture line with active purulence, lower area with palpable fluctuance Studies reviewed in eDH. Remarkable for the following: LABS: Lab Results Component Value Date WBC 4.9 07/26/2022 HGB 10.1 (L) 07/26/2022 HCT 31.9 (L) 07/26/2022 MCV 78.4 (L) 07/26/2022 PLATELET 348 07/26/2022 Lab Results Component Value Date NA 139 07/26/2022 K 3.8 07/26/2022 CL 103 07/26/2022 CO2 23 07/26/2022 BUN 13 07/26/2022 CREATININE 0.25 (L) 07/26/2022 GLUCOSE 100 07/26/2022 GLUCFASTING 95 07/01/2022 CALCIUM 9.4 07/26/2022 ESTGFR 154 07/26/2022 MICRO: No results for input(s): URINECULTURE in the last 720 hours. Recent Labs 07/22/22 2130 07/24/22 1522 07/24/22 1547 GRAMSTAIN Many Neutrophils seen No microorganisms seen. Few Neutrophils seen No microorganisms seen. Many Neutrophils seen No microorganisms seen. BFCX No growth to date. No growth to date. -- Recent Labs 07/03/22 2245 07/03/22 2305 07/06/22 0621 07/07/22 0341 07/22/22 2115 07/22/22 2247 BLOODCX No growth at 5 days. Escherichia coli detected by PCR Isolate saved. If future testing is required, contact the Microbiology [facility] Foreman. * No growth at 5 days. No growth at 5 days. No growth at 3 days. No growth at 3 days. ECG: Recent Labs 07/25/22 1242 DIAGLINE Sinus tachycardia Possible Inferior infarct (cited on or before 07-JUL-2022) Abnormal ECG When compared with ECG of 07-JUL-2022 11:44, Nonspecific T wave abnormality no longer evident in Anterior leads QTCCALC 435 IMAGING: CT L spine w/contrast, CT A/P OTHER Studies: NA Assessment & Plan Assessment and Plan: Tana Cavazos is a 27 y.o. year old female with TBI with spastic quadriplegia, CP, nonverbal, scoliosis, s/p PSF(02/2009), prior bilateral Girdlestone's-2010 who??was recently admitted from 06/24 to 07/09 for lumbar subcutaneous abscesses and E. coli bacteremia s/p aspiration(with aspirate cultures being negative)??on levofloxacin 04/18 who presented to the ED 07/22 with increased redness and purulent drainage from the same area. ESR elevated to 119 and CRP uptrending to 48.9 from previous. ??CT imaging of the lumbar spine showed mildly increasing soft tissue collection around the right iliac screw and a dorsal subcutaneous collection at L3 which is larger as well. Now status post IR drain x 2 on 07/24. Clinically doing well, continuing abx. Will trend inflammatory markers and if persistently elevated or clinical change will re-engage with Ortho to advocate for more definitive treatment. Summary of plan with changes for 07/26/2022: ??? No changes to plan today ??? Continue levofloxacin ??? Follow CARMELLA drain cultures ? ? Culture if T > 101.5 ??? Consider repeat CT L-spine early next week if inflammatory markers not downtrending #Lumbar subcutaneous abscesses with markers c/f deep infection - On Levaquin at home, previous blood cultures growing E. coli with aspirate cultures being negative - On levofloxacin per ID. Both ID and I feel source control was not obtained with abx and drainage and would advocate for surgical debridement. For now ortho spine is saying to have IR drain. Following response but if inflammatory markers remain elevated would continue to advocate for more definitive treatment ?? #TBI with spastic quadriplegia #Cerebral palsy, nonverbal #Scoliosis s/p PSF, prior bilateral Girdlestone -??Continue baclofen 10 Mg p.o. twice daily -??Tylenol as needed # Bundle FENGI: Regular diet DVT Prophylaxis: LMWH LDA: CARMELLA drain x 2, oropeza, PIV Anticipated Disposition: supervisor intermediates care facility Code Status: Attempt Cardiopulmonary Resuscitation - Inpatient Attestation: Attending Attestation and Certification I have examined the patient myself and personally reviewed all studies. In addition, I certify thatI am a [facility]-H credentialed attending provider with admitting privileges and that the patient meets or has met medical necessity to require an inpatient IPI level of care meeting a minimum of two midnights or is on the [facility] inpatient only procedure list (status C) due to: monitoring of fluid status given an inability to regulate fluid balance and the need for administration or restriction of fluids Team Pager( Coverage 17/11): #[phone] PCP: Lorna Bal, HAND HEEL SEAT FITTER [phone] Jamshid Collins MD 07/26/2022 * Citlali Mcdonald RN - 07/26/2022 1:03 AM EDT .. OUTCOME EVALUATION NOTE: OUTCOME SUMMARY: Pt is non-verbal with a pleasant countenance. VSS on RA, no distressed noted. Rested between care. Incontinence care provided. No distress noted PLAN MOVING FORWARD: D/c planning IV abx INDIVIDUALIZED FALL PREVENTION INTERVENTIONS: Patient-specific fall risk factors per assessment: [current deficits]: quadreplegia Assistance [level of assistance required for transfers and ambulation]: dependent Supervision [direct monitoring required during toileting and ADLs]: Hands on Surveillance [continuous indirect monitoring]: Purposeful rounding Patient-specific fall prevention interventions for sensory deficits provided, if applicable: na CARE PLAN GOAL OUTCOME EVALUATION: * Sergey Keane MD - 07/25/2022 11:36 AM EDT Images from the original note were not included. DEPARTMENT OF INFECTIOUS DISEASE [facility] INFECTIOUS DISEASE PROGRESS NOTE Reason for follow up Spinal collections Hx of E coli bacteremia ( resolved) Major 24 Hour Events Underwent IR drain placement of lumbar and sacroiliac collection. EKG with QTc of 435 ms. Subjective Case discussed during rounds with ID team and the attending Dr. Ambriz Patient is seen and examined at bedside. Caregiver at bedside. She refers she is looking well, no fever, no vomiting no diarrhea Review of systems Unable to obtain due to patient clinical status Antimicrobials Ceftriaxone 07/22-07/23 Levofloxacin 07/23-> Physical Exam Temp: [35.6 ??C (96 ??F)-36.4 ??C (97.5 ??F)] Heart Rate: [69-105] Resp: [12-20] BP: (92-125)/(60-81) SpO2: [97 %-100 %] Heart Rate from SpO2: [67 bpm-101 bpm] GENERAL APPEARANCE: In no acute distress. VITAL SIGNS: Reviewed HEENT: Oropharynx is clear. Mouth no lesions. NECK: No lymphadenopathy or tenderness. LUNGS: Breath sounds are equal and clear bilaterally. No wheezes, rhonchi, or rales. HEART: Regular rate and rhythm with normal S1 and S2. No murmurs ABDOMEN: Soft. No mass, tenderness, guarding, or rebound. No organomegaly or hernia. Bowel sounds are present. SPINE: [address] seropurulent sanguinous drainage 3 cc EXTREMITIES: No cyanosis, clubbing, or edema. NEUROLOGIC: Awake, alert, SKIN: No lesions, nodules or rashes are noted Laboratory CBC: Recent Labs 07/25/22 0437 07/24/22 0525 07/23/22 0300 WBC 4.9 4.4 6.2 HGB 10.3* 9.6* 10.5* PLATELET 357 343 364* Chemistry: Recent Labs 07/25/22 0437 07/24/22 0525 07/23/22 0300 NA 138 138 141 K 3.9 3.9 3.6 CL 105 104 105 CO2 BUN 13 11 9 CREATININE 0.49* 0.34* 0.31* GLUCOSE 99 89 101 Recent Labs 07/25/22 0437 07/24/22 0525 07/23/22 0300 07/02/22 0615 07/01/22 1814 06/30/22 0429 06/29/22 0558 06/28/22 0538 CALCIUM 8.9 9.1 8.9 < > -- < > 9.0 9.1 MAGNESIUM -- -- -- -- 0.74 -- 0.88 0.78 < > = values in this interval not displayed. LFT's: Recent Labs 07/07/22 0341 07/06/22 0621 07/05/22 0531 BILITOT <0.2* 0.3 0.4 BILIDIR <0.1 0.1 0.1 ALBUMIN 2.9* 3.2 3.1* ALKPHOS 177* 199* 209* ALT 42* 57* 74* AST 20 25 39* Microbiology Body Fluid Culture 07/24 No growth to date. Blood Culture 07/22 No growth at 2 days New Notable Imaging/Studies: Reviewed No new in the past 24 hrs Summary 27 year-old female with a PMH of TBI with spastic quadriplegia, CP, scoliosis, s/p PSF in 2008 and prior bilateral Girdlestone in 2010 recently admitted to on 06/24 for evaluation of increasing redness and tenderness over the midline surgical scar and failing courses of ABX at OSH. During that admission a CT performed on 06/24 showed two irregular collections within the posterior lumbar region s/p IR guided drainage with findings of old blood from the superior collection, inferior collection drained purulent material, and a drain was placed. Cultures with no growth. In absence of identified pathogen and SIRS she was monitor off ABX. Then she developed fever and hypotension, repeating lumbar CT showed loculated collections and a gluteal abscess. Patient underwent new IR drainage, with minimal drainage, no culture were obtained and drain kept in place . BCx returned positive for E coli. possible source proctitis noted on CT abdomen . Decision was made to treat for 6 weeks with ABX, to cover the bacteremia and the spinal collection and gluteal abscess. Patient was discharged with close monitoring and ID follow up. Eventually her drain was removed on 07/08. Unfortunately she developed increased redness and purulent drainage from the same area she presented returned to [facility] on 07/22, a repeated CT of the lumbar spine showed multiple spinal and paraspinal collections. Initial plan was to continue treatment with levofloxacin in addition to surgical sourcecontrol by orthopedics since drains have shown to fail in multiple oportunities. Orthopedic surgeryevaluated the patient decision was for another trial of drain placement plus antibiotics. Patient underwent IR drain on 07/24 one drain at L2/3 collection and the other at the sacroiliac site. So far patient remains stable, no SIRS, culture negatives. We planning to continue current ABX therapy. Deci jesi of duration will be based on future culture data and evolution of collections. She will require repeat imaging at some point if evidence of high output from drains or clinical deteroriation Recommendations -Continue levofloxacin 750 mg PO daily -Follow up with cultures from CARMELLA drains, as well as output of these drains -Consider repeat CT lumbar spine in a few days to monitor effectiveness of drainage with this non-invasive approach -Daily monitoring of CBC and temperature curve -Repeat blood cultures if temperature greater than 101.5 -Monitor for toxicity of PO levofloxacin by checking at least weekly CBC w/ diff, CMP Thank you for allowing us to participate in the care of this patient. Infectious diseases team will: Continue to follow [x] Sign off from this case. Please call us back for any further question [] Sergey Doan MD Infectious Disease Fellow Pager [phone] 07/25/22 (Attending addendum to follow) Associated attestation - Hollie Ambriz MD - 07/25/2022 5:48 PM EDT ID Attending Attestation I have seen and examined the patient and reviewed the fellow's above history, and I agree with the details as written. The assessment and plan were formulated in discussion with me and I agree with them as documented. Hollie Ambriz MD Staff Physician in Infectious Diseases * Jamshid Collins MD - 07/25/2022 7:36 AM EDT Hospital Medicine Attending Daily Progress Note Admit Date: 07/22/2022 Hospital Day 3 days Subjective Interval History: ??? No acute events ??? Had IR drain placed yesterday x 2 ??? Nonverbal, unable to voice complaints. Appears in no distress today ROS: Unable to attend Active Hospital Problems Diagnosis ??? Abscess Resolved Hospital Problems No resolved problems to display. PMH Active Non-Hospital Problems Diagnosis ??? 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 ??? Fracture of femur, distal ??? Contracture of elbow ??? Right leg pain ??? Presence of intrathecal baclofen pump ??? Spasticity ??? Scoliosis ??? Edema leg ??? Acquired dysplasia of hip, bilateral ??? 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 levoFLOXacin 750 mg Oral QAM ??? baclofen 10 mg Oral BID ??? polyethylene glycoL 17 g Oral Daily ??? senna 17.2 mg Oral Nightly ??? sodium chloride 0.9 % (flush) 5 mL Intravenous BID ??? senna-docusate 2 tablet Oral BID ??? enoxaparin 30 mg Subcutaneous Nightly Continuous infusions: PRN: sodium chloride 0.9 % (flush), lidocaine, acetaminophen Objective Physical Exam Vitals Range last 24 hrs Temperature Temp: [35.6 ??C (96 ??F)-36.4 ??C (97.5 ??F)] Heart Rate Heart Rate: [69-105] Blood Pressure BP: (92-125)/(60-81) Respiratory Rate Resp: [12-20] SpO2 SpO2: [97 %-100 %] Patient Vitals for the past 24 hrs: Temp Heart Rate From SP02 Pulse Resp BP SpO2 O2 Device 07/24/22 0900 35.7 ??C (96.3 ??F) 82 bpm -- 16 97/60 98 % RA 07/24/22 1100 -- -- -- -- -- -- RA 07/24/22 1138 35.7 ??C (96.3 ??F) 76 bpm -- 18 110/67 98 % RA 07/24/22 1410 -- -- -- -- -- -- RA 07/24/22 1429 35.6 ??C (96 ??F) 67 bpm 69 20 99/74 100 % RA 07/24/22 1500 -- 92 bpm 87 13 92/60 100 % RA 07/24/22 1505 -- 86 bpm 83 12 110/66 98 % RA 07/24/22 1510 -- 74 bpm 75 14 113/68 100 % RA 07/24/22 1515 -- 82 bpm 82 16 103/66 100 % RA 07/24/22 1520 -- 95 bpm 81 15 104/64 98 % RA 07/24/22 1525 -- 81 bpm (!) 101 17 101/70 99 % RA 07/24/22 1530 -- 89 bpm 96 17 112/65 98 % RA 07/24/22 1535 -- 85 bpm 87 19 94/63 98 % RA 07/24/22 1540 -- 99 bpm 100 20 108/64 100 % RA 07/24/22 1545 -- (!) 101 bpm (!) 105 16 125/66 100 % RA 07/24/22 1550 -- 99 bpm (!) 102 16 105/78 97 % RA 07/24/22 1555 -- 89 bpm 96 17 97/71 99 % RA 07/24/22 1608 36 ??C (96.8 ??F) 100 bpm -- 16 103/67 99 % RA 07/24/22 1615 -- 79 bpm -- 16 99/70 98 % RA 07/24/22 1641 35.9 ??C (96.6 ??F) 84 bpm 83 18 98/66 97 % RA 07/24/222021 36 ??C (96.8 ??F) 99 bpm -- 16 119/81 98 % -- 07/25/22 0656 36.4 ??C (97.5 ??F) 86 bpm 86 18 121/80 99 % RA Intake/Output Summary (Last 24 hours) at 07/25/2022 0736 Last data filed at 07/25/2022 0400 Gross per 24 hour Intake 100 ml Output -- Net 100 ml Physical Exam GEN: NAD, makes eye contact, answers most questions with yes HEENT: at/nc, anicteric CV: rrr, no m/r/g PULM: cta b/l, comfortable ABD: soft, nt/nd, nabs EXT: b/l contracted LE with girdlestone procedures Neuro: at baseline Skin: lower back with mild erythema, one area over lumbar suture line with active purulence, lower area with palpable fluctuance Studies reviewed in eDH. Remarkable for the following: LABS: Lab Results Component Value Date WBC 4.9 07/25/2022 HGB 10.3 (L) 07/25/2022 HCT 32.6 (L) 07/25/2022 MCV 78.4 (L) 07/25/2022 PLATELET 357 07/25/2022 Lab Results Component Value Date NA 138 07/25/2022 K 3.9 07/25/2022 CL 105 07/25/2022 CO2 23 07/25/2022 BUN 13 07/25/2022 CREATININE 0.49 (L) 07/25/2022 GLUCOSE 99 07/25/2022 GLUCFASTING 95 07/01/2022 CALCIUM 8.9 07/25/2022 ESTGFR 131 07/25/2022 MICRO: No results for input(s): URINECULTURE in the last 720 hours. Recent Labs 06/25/22 1511 06/25/22 1512 07/22/22 2130 07/24/22 1522 07/24/22 1547 GRAMSTAIN Many Neutrophils seen No microorganisms seen. Many Neutrophils seen No microorganisms seen. Many Neutrophils seen No microorganisms seen. Few Neutrophils seen No microorganisms seen. Many Neutrophils seen No microorganisms seen. BFCX No growth No growth No growth to date. -- -- Recent Labs 07/03/22 2245 07/03/22 2305 07/06/22 0621 07/07/22 0341 07/22/22 2115 07/22/22 2247 BLOODCX No growth at 5 days. Escherichia coli detected by PCR Isolate saved. If future testing is required, contact the Micro[facility]. * No growth at 5 days. No growth at 5 days. No growth at 2 days. No growth at 2 days. ECG: Recent Labs 07/07/22 1144 DIAGLINE Normal sinus rhythm with sinus arrhythmia Cannot rule out Inferior infarct , age undetermined Abnormal ECG When compared with ECG of 04-JUL-2022 00:16, Vent. rate has decreased BY 74 BPM Confirmed by MD Jeanmarie, Ty ([id number]) on 07/10/2022 4:37:33 PM QTCCALC 467 IMAGING: CT L spine w/contrast, CT A/P OTHER Studies: NA Assessment & Plan Assessment and Plan: Tana Cavazos is a 27 y.o. year old female with TBI with spastic quadriplegia, CP, nonverbal, scoliosis, s/p PSF(02/2009), prior bilateral Girdlestone's-2010 who??was recently admitted from 06/24 to 07/09 for lumbar subcutaneous abscesses and E. coli bacteremia s/p aspiration(with aspirate cultures being negative)??on levofloxacin 04/18 who presented to the ED 07/22 with increased redness and purulent drainage from the same area. ESR elevated to 119 and CRP uptrending to 48.9 from previous. ??CT imaging of the lumbar spine showed mildly increasing soft tissue collection around the right iliac screw and a dorsal subcutaneous collection at L3 which is larger as well. Now status post IR drain x 2 on 07/24. Clinically doing well, continuing abx. Will trend inflammatory markers and if persistently elevated or clinical change will re-engage with Ortho to advocate for more definitive treatment. Summary of plan with changes for 07/25/2022: ??? Continue levofloxacin ??? Follow CARMELLA drain cultures ? ? Culture if T > 101.5 #Lumbar subcutaneous abscesses with markers c/f deep infection - On Levaquin at home, previous blood cultures growing E. coli with aspirate cultures being negative - On levaquin per ID consult pending drainage. Both ID and I feel source control was not obtained with abx and drainage and would advocate for surgical debridement. For now ortho spine is saying to have IR drain. Patient is in for the drain today, send cultures and we will follow response but if inflammatory markers remain elevated would continue to advocate for more definitive treatment ?? #TBI with spastic quadriplegia #Cerebral palsy, nonverbal #Scoliosis s/p PSF, prior bilateral Girdlestone -??Continue baclofen 10 Mg p.o. twice daily -??Tylenol as needed # Bundle FENGI: Regular diet DVT Prophylaxis: LMWH LDA: CARMELLA drain x 2, oropeza, PIV Anticipated Disposition: longterm care facility Code Status: Attempt Cardiopulmonary Resuscitation - Inpatient Attestation: Attending Attestation and Certification I have examined the patient myself and personally reviewed all studies. In addition, I certify thatI am a D-H credentialed attending provider with admitting privileges and that the patient meets or has met medical necessity to require an inpatient IPI level of care meeting a minimum of two midnights or is on the [facility] inpatient only procedure list (status C) due to: monitoring of fluid status given an inability to regulate fluid balance and the need for administration or restriction of fluids Team Pager( Coverage 17/11): #[phone] PCP: Lorna Bal, HAND HE[employer] SE[employer]TER [phone] Jamshid Collins MD 07/25/2022 * Anamika Todd PA - 07/25/2022 7:12 AM EDT Interventional Radiology Inpatient Progress Note Admitted 07/22/2022 Procedure(s): Drain placements - L2/3 collection and collection about the sacroiliac joint screw Post-procedure day: #1 Time of patient encounter: 07:00 24 Hour Events: No adverse events overnight. AVSS on RA. Per caregiver at bedside, patient slept well, minimal pain noted. Last Value 24 Hour Range Temperature 36.4 ??C (97.5 ??F) Temp: [35.6 ??C (96 ??F)-36.4 ??C (97.5 ??F)] Heart Rate 86 Heart Rate: [69-105] Blood Pressure 121/80 BP: (92-125)/(60-81) Respiratory Rate 18 Resp: [12-20] SpO2 99 % SpO2: [97 %-100 %] Physical Exam GEN No distress, A&O CARDS RRR LUNGS CTA B/L ABD Non tender, nondistended ACCESS CARMELLA bulbs with about 10cc serosanguinous fluid; sites C/D/I Drains/Tubes (drainage over 24 hours) - nothing charted, but each CARMELLA appears to have ~10cc serosanguinous fluid Labs: Reviewed - Last 3 wbc, hgb, hct plt Recent Labs 07/25/22 0437 07/24/22 0525 07/23/22 0300 WBC 4.9 4.4 6.2 HGB 10.3* 9.6* 10.5* HCT 32.6* 31.4* 32.7* PLATELET 357 343 364* Micro: NGTD Imaging: No relevant post procedural imaging. Assessment: 27 y.o. female s/p two drain placements into L2/3 collection and collection about the sacroiliac joint screw. Plan: -Drain check scheduled with IR for 08/11/22 -IR will sign-off at this time. Please page with further questions and concerns. Anamika Todd PA-C Interventional Radiology IR Team Pager [phone] * Citlali Mcdonald RN - 07/25/2022 4:46 AM EDT .. OUTCOME EVALUATION NOTE: OUTCOME SUMMARY: Pt is non-verbal with a pleasant countenance. VSS on RA, no distressed noted. Rested between care. Incontinence care provided. No distress noted PLAN MOVING FORWARD: D/c planning IV abx INDIVIDUALIZED FALL PREVENTION INTERVENTIONS: Patient-specific fall risk factors per assessment: [current deficits]: quadreplegia Assistance [level of assistance required for transfers and ambulation]: dependent Supervision [direct monitoring required during toileting and ADLs]: Hands on Surveillance [continuous indirect monitoring]: Purposeful rounding Patient-specific fall prevention interventions for sensory deficits provided, if applicable: na CARE PLAN GOAL OUTCOME EVALUATION: * Rebecca Hernandez RN - 07/24/2022 3:03 PM EDT ANGIO NURSING DATABASE Name: Tana Cavazos Date of : 1995 AGE: 27 y.o. [address]: [address] [place] [address] Phone: [phone] (home) Mobile: Telephone Information: Referring Provider: Unknown REASON FOR VISIT: Order Questions Answers Is the patient on anticoagulant / antiplatelet therapy ? No Reason for exam and clinical history: worsening fluid collection at inferior aspect on prior infection site Is the patient ? No Planned procedure: Paraspinal drain placement Labs to be performed day of procedure: No labs Sedation: Moderate (Conscious sedation) Prophylactic antibiotic : None Contrast: No contrast Additional medications for procedure: Lidocaine Position: Supine Consent: Pending Medications to discontinue (and days held): None Case Urgency:: D- Intervention within 24 hrs Allergies Allergen Reactions ??? Fluoxetine Other (See Comments) HIVES, HEART RACES ??? Tegaderm [Transparent Dressings] Itching and Dermatitis Please use [id number] ??? Penicillins Pertinent PMH: Patient Active Problem [...] placement Versed 2 mg IV ??07/01/22 drain removed ??local ??07/04/2022 Lower back drain placement ??IV Versed 0.5 mg ??07/24/22 drain placement x 2 2mg versed, local lidocaine ? 1440 to procedure room 2 via stretcher. Onto table left lateral decubitus. All monitors, O2, safetystrap in place. Meds per protocol. Laboratory Results: Lab Results Component Value Date CREATININE 0.34 (L) 07/24/2022 Lab Results Component Value Date K 3.9 07/24/2022 Lab Results Component Value Date PLATELET 343 07/24/2022 * Ernesto Willingham MD - 07/24/2022 8:27 AM EDT Hospital Medicine Attending Daily Progress Note Admit Date: 07/22/2022 ( Hospital Day 2 days ) Active Hospital Problems Diagnosis ??? Abscess Resolved Hospital Problems No resolved problems to display. ASSESSMENT: 27-year-old female, PMH of TBI with spastic quadriplegia, CP, nonverbal, scoliosis, s/p PSF(02/2009), prior bilateral Girdlestone's-2010 who was recently admitted from 06/24 to 07/09 for lumbar subcutaneous abscesses and E. coli bacteremia s/p aspiration(with aspirate cultures being negative) on levofloxacin 04/18 who presented to the ED 07/22 with increased redness and purulent drainage from the same area. ESR elevated to 119 and CRP uptrending to 48.[address] imaging of the lumbar spine showed mildly increasing soft tissue collection around the right iliac screw and a dorsal subcutaneous collection at L3 which is larger as well. ?? #Lumbar subcutaneous abscesses with markers c/f deep infection - On Levaquin at home, previous blood cultures growing E. coli with aspirate cultures being negative - On levaquin per ID consult pending drainage. Both ID and I feel source control was not obtained with abx and drainage and would advocate for surgical debridement. For now ortho spine is saying to have IR drain. Patient is in for the drain today, send cultures and we will follow response but if inflammatory markers remain elevated would continue to advocate for more definitive treatment ?? #TBI with spastic quadriplegia #Cerebral palsy, nonverbal #Scoliosis s/p PSF, prior bilateral Girdlestone - Continue baclofen 10 Mg p.o. twice daily - Tylenol as needed ?? #DVT prophylaxis-Lovenox #FEN/PPx/Disposition - Nutrition: NPO diet (Give Meds) - DVT PPx: lovenox - Disposition: her longterm care facility - Family support: mother and her supervisor intermediates care providers - Code Status: Attempt Cardiopulmonary Resuscitation - Inpatient IPI Certification I certify that I am a D-H credentialed attending provider with admitting privileges and that the patient meets or has met medical necessity to require an inpatient IPI level of care meeting a minimumof two midnights or is on the [facility] inpatient only procedure list (status C) due to: monitoring of fluid status given an inability to regulate fluid balance and the need for administration or restriction of fluids Ernesto Willingham MD TEAM/PAGER:[phone] Subjective/24hr events: Says yes to most questions. Fannie, her caregiver, is at bedside appropriately asking questions about surgery vs. Drainage. ROS:unable to obtain Vitals: Last value Range last 24 hrs Temperature Temp: 35.7 ??C (96.3 ??F) Temp: [35.7 ??C (96.3 ??F)-36.2 ??C (97.2 ??F)] Heart Rate Heart Rate: 88 Heart Rate: -- Blood Pressure BP: 96/60 BP: (84-108)/(55-72) Respiratory Rate Resp: 15 Resp: [15-20] SpO2 SpO2: 98 % SpO2: [96 %-100 %] Intake/Output Summary (Last 24 hours) at 07/24/2022 0827 Last data filed at 07/24/2022 0500 Gross per 24 hour Intake -- Output 1100 ml Net -1100 ml EXAM GEN: NAD, makes eye contact, answers most questions with yes HEENT: at/nc, anicteric CV: rrr, no m/r/g PULM: cta b/l, comfortable ABD: soft, nt/nd, nabs EXT: b/l contracted LE with girdlestone procedures Neuro: at baseline Skin: lower back with mild erythema, one area over lumbar suture line with active purulence, lower area with palpable fluctuance LABS: Reviewed in eDH. Remarkable for the following: Recent Labs 07/24/22 0525 07/23/220 07/22/221911 WBC 4.4 6.2 5.6 HGB 9.6* 10.5* 11.2* HCT 31.4* 32.7* 36.2 PLATELET 343 364* 449* Recent Labs 07/24/22 0525 07/23/22 0300 07/22/221911 NA 138 141 139 K 3.9 3.6 3.8 CL 104 105 103 CO2 23 23 26 BUN 11 9 10 CREATININE 0.34* 0.31* 0.34* GLUCOSE 89 101 99 CALCIUM 9.1 8.9 9.4 No results for input(s): AST, ALT, ALKPHOS, BILITOT, BILIDIR in the last 72 hours. No results for input(s): URINECULTURE in the last 720 hours. Recent Labs 06/25/22 0855 07/01/22202007/03/22224407/03/22 2305 07/06/22 0621 07/07/22 0341 07/22/22 2115 07/22/22 2247 BLOODCX No growth at 5 days. No growth at 5 days. No growth at 5 days. No growth at 5 days. Escherichia coli detected by PCR Isolate saved. If future testing is required, contact the [facility]. * No growth at 5 days. No growth at 5 days. No growth at 1 day. No growth at 1 day. STUDIES: Results for orders placed or performed during the hospital encounter of 07/22/22 CT Lumbar Spine w Contrast (Exam End: 07/22/2022 7:25 PM) Narrative EXAMINATION: CT LUMBAR SPINE W CONTRAST CLINICAL HISTORY: Low back pain, infection suspected Low back pain, infection suspected TECHNIQUE: CT lumbar spine performed after the intravenous administration of contrast. Administered 60.0 ml of OMNIPAQUE 350.00 mg/ml. COMPARISON: CT lumbar spine 07/03/2022. FINDINGS: Marked lumbar dextroscoliosis with bilateral posterior fusion consisting of pedicle screws and rods at L1-L4 with continuation of the fusion to iliac bone hardware on the left. The right-sided iliac screw is disconnected and does not articulate with the lumbar spinal hardware. Solid posterior osseous fusion. Alignment is unchanged. Irregular soft tissue density collection in the subcutaneous fat about the disconnected right iliac screw and adjacent spinal meredith measures 4.5 cm transverse, 3.1 cm AP and at least 6.1 cm craniocaudal. This compares to 3.6 x 2.5 x 6.0 cm remeasured on the current study. Stable T12/L1 posterior subcutaneous soft tissue collection that abuts the dermis. Another dorsal subcutaneous soft tissue collection at L3 that abuts the skin surface appears larger. Abnormal soft tissue fullness along left-sided lamina and L2 and L3 may be in continuity with soft tissue collections described above, but not significantly changed when compared to prior. Evaluation of spinal canal is significantly marred by the hardware artifact. Impression 1. The soft tissue collection about the dislocated right iliac screw is mildly larger. 2. The dorsal subcutaneous collection at T12 not significantly changed. 3. The dorsal subcutaneous collection at L3 which is associated with soft tissue fullness along the left L2 and L3 lamina is larger. 4. Ultrasound may be helpful for further evaluation of these collections. Thank you for letting us participate in the care of this patient. If you are a health care provider and have any questions regarding this report, please contact the number below. For patients who have questions please contact the health ambulatory care that requested your imaging first. Electronically signed by: Jamaal Villafuerte [facility] ([phone]), at 07/22/2022 8:03 PM Medications: Scheduled Meds: ??? levoFLOXacin 750 mg Oral QAM ??? baclofen 10 mg Oral BID ??? polyethylene glycoL 17 g Oral Daily ??? senna 17.2 mg Oral Nightly ??? sodium chloride 0.9 % (flush) 5 mL Intravenous BID ??? senna-docusate 2 tablet Oral BID ??? enoxaparin 30 mg Subcutaneous Nightly Continuous Infusions: ??? lactated Ringers 100 mL/hr (07/24/22 0500) PRN Meds:.sodium chloride 0.9 % (flush), lidocaine, acetaminophen * Ernesto Willingham MD - 07/23/2022 11:11 AM EDT Hospital Medicine Attending Daily Progress Note Admit Date: 07/22/2022 ( Hospital Day 1 day ) Active Hospital Problems Diagnosis ??? Abscess Resolved Hospital Problems No resolved problems to display. ASSESSMENT: 27-year-old female, PMH of TBI with spastic quadriplegia, CP, nonverbal, scoliosis, s/p PSF(02/2009), prior bilateral Girdlestone's-2010 who was recently admitted from 06/24 to 07/09 for lumbar subcutaneous abscesses and E. coli bacteremia s/p aspiration(with aspirate cultures being negative) on levofloxacin 04/18 who presented to the ED 07/22 with increased redness and purulent drainage from the same area. ESR elevated to 119 and CRP uptrending to 48.[address] imaging of the lumbar spine showed mildly increasing soft tissue collection around the right iliac screw and a dorsal subcutaneous collection at L3 which is larger as well. Considering previous cultures being pansensitive E. coli she was switched to ceftriaxone and admitted to hospital medicine for further management. ?? #Lumbar subcutaneous abscesses with markers c/f deep infection - On Levaquin at home, previous blood cultures growing E. coli with aspirate cultures being negative - I switched back to levaquin pending ID consult as I presume this collection is polymicrobial - for now holding on IR so that ID and ortho spine can see patient as I anticipate will benefit from OR washout ?? #TBI with spastic quadriplegia #Cerebral palsy, nonverbal #Scoliosis s/p PSF, prior bilateral Girdlestone - Continue baclofen 10 Mg p.o. twice daily - Tylenol as needed ?? #DVT prophylaxis-Lovenox #FEN/PPx/Disposition - Nutrition: NPO diet (Give Meds) - DVT PPx: lovenox - Disposition: her longterm care facility - Family support: mother and her supervisor intermediates care providers - Code Status: Attempt Cardiopulmonary Resuscitation - Inpatient IPI Certification I certify that I am a D-H credentialed attending provider with admitting privileges and that the patient meets or has met medical necessity to require an inpatient IPI level of care meeting a minimumof two midnights or is on the [facility] inpatient only procedure list (status C) due to: monitoring of fluid status given an inability to regulate fluid balance and the need for administration or restriction of fluids Ernesto Willingham MD TEAM/PAGER:[phone] Subjective/24hr events: Says yes to most questions. Does cry out on pain when examining her back. ROS:unable to obtain Vitals: Last value Range last 24 hrs Temperature Temp: 35.6 ??C (96 ??F) Temp: [35.6 ??C (96 ??F)] Heart Rate Heart Rate: 88 Heart Rate: [88] Blood Pressure BP: (!) 84/65 BP: (84-110)/(61-81) Respiratory Rate Resp: 20 Resp: [16-20] SpO2 SpO2: 98 % SpO2: [97 %-100 %] Intake/Output Summary (Last 24 hours) at 07/23/2022 1111 Last data filed at 07/23/2022 0031 Gross per 24 hour Intake -- Output 150 ml Net -150 ml EXAM GEN: NAD, makes eye contact, answers most questions with yes HEENT: at/nc, anicteric CV: rrr, no m/r/g PULM: cta b/l, comfortable ABD: soft, nt/nd, nabs EXT: b/l contracted LE with girdlestone procedures Neuro: at baseline Skin: lower back with mild erythema, one area over lumbar suture line with active purulence, lower area with palpable fluctuance LABS: Reviewed in eDH. Remarkable for the following: Recent Labs 07/23/2229907/22/221911 WBC 6.2 5.6 HGB 10.5* 11.2* HCT 32.7* 36.2 PLATELET 364* 449* Recent Labs 07/23/2229907/22/221911 NA 141 139 K 3.6 3.8 CL 105 103 CO2 23 26 BUN 9 10 CREATININE 0.31* 0.34* GLUCOSE 101 99 CALCIUM 8.9 9.4 No results for input(s): AST, ALT, ALKPHOS, BILITOT, BILIDIR in the last 72 hours. No results for input(s): URINECULTURE in the last 720 hours. Recent Labs 06/25/22 0855 07/01/22202007/03/22 2245 07/03/22 2305 07/06/22 0621 07/07/22 0341 BLOODCX No growth at 5 days. No growth at 5 days. No growth at 5 days. No growth at 5 days. Escherichia coli detected by PCR Isolate saved. If future testing is required, contact the Micro[facility]. * No growth at 5 days. No growth at 5 days. STUDIES: Results for orders placed or performed during the hospital encounter of 07/22/22 CT Lumbar Spine w Contrast (Exam End: 07/22/2022 7:25 PM) Narrative EXAMINATION: CT LUMBAR SPINE W CONTRAST CLINICAL HISTORY: Low back pain, infection suspected Low back pain, infection suspected TECHNIQUE: CT lumbar spine performed after the intravenous administration of contrast. Administered 60.0 ml of OMNIPAQUE 350.00 mg/ml. COMPARISON: CT lumbar spine 07/03/2022. FINDINGS: Marked lumbar dextroscoliosis with bilateral posterior fusion consisting of pedicle screws and rods at L1-L4 with continuation of the fusion to iliac bone hardware on the left. The right-sided iliac screw is disconnected and does not articulate with the lumbar spinal hardware. Solid posterior osseous fusion. Alignment is unchanged. Irregular soft tissue density collection in the subcutaneous fat about the disconnected right iliac screw and adjacent spinal meredith measures 4.5 cm transverse, 3.1 cm AP and at least 6.1 cm craniocaudal. This compares to 3.6 x 2.5 x 6.0 cm remeasured on the current study. Stable T12/L1 posterior subcutaneous soft tissue collection that abuts the dermis. Another dorsal subcutaneous soft tissue collection at L3 that abuts the skin surface appears larger. Abnormal soft tissue fullness along left-sided lamina and L2 and L3 may be in continuity with soft tissue collections described above, but not significantly changed when compared to prior. Evaluation of spinal canal is significantly marred by the hardware artifact. Impression 1. The soft tissue collection about the dislocated right iliac screw is mildly larger. 2. The dorsal subcutaneous collection at T12 not significantly changed. 3. The dorsal subcutaneous collection at L3 which is associated with soft tissue fullness along the left L2 and L3 lamina is larger. 4. Ultrasound may be helpful for further evaluation of these collections. Thank you for letting us participate in the care of this patient. If you are a health care provider and have any questions regarding this report, please contact the number below. For patients who have questions please contact the health ambulatory care that requested your imaging first. Electronically signed by: Jamaal Villafuerte [facility] ([phone]), at 07/22/2022 8:03 PM Medications: Scheduled Meds: ??? [START ON 07/24/2022] levoFLOXacin 750 mg Oral QAM ??? baclofen 10 mg Oral BID ??? polyethylene glycoL 17 g Oral Daily ??? senna 17.2 mg Oral Nightly ??? sodium chloride 0.9 % (flush) 5 mL Intravenous BID ??? senna-docusate 2 tablet Oral BID ??? enoxaparin 30 mg Subcutaneous Nightly Continuous Infusions: ??? lactated Ringers PRN Meds:.sodium chloride 0.9 % (flush), lidocaine, acetaminophen documented in this encounter H&P Notes * Lucho Burciaga MD - 07/24/2022 2:29 PM EDT INTERVENTIONAL RADIOLOGY INTERVAL H&P NOTE: PCP: Lorna Bal APRN Planned Procedure: Planned procedure: Drain placements - L2/3 collection and collection about the sacroiliac joint screw Physical Exam: Cards: RRR Pulm: Normal work of breathing ASA: Class 3 Mallampati Class: Class 3 Assessment: 27 y.o. female with CP and scoliosis s/p PSF with paraspinal fulid collections s/p IR drain placements and removals as delineated above, now with clinical concern for increasing size of the paraspinal collections, one of which is in close relationship/continuous with the hardware. Patient had an I&D at bedside yesterday and was admitted to medicine. ?? - IR re-consulted to place drains at both the collection around the sacroiliac screw and the collection in the lumbar region. - Primary team to place any desired fluid analysis labs. Plan: Planned procedure: Drain placements - L2/3 collection and collection about the sacroiliac joint screw Labs to be performed day of procedure: No labs Sedation: Moderate (Conscious sedation) Prophylactic antibiotic : None Contrast: No contrast; Omnipaque Additional medications for procedure: Lidocaine Position: Supine Consent: Completed Medications to discontinue (and days held): None Case Urgency:: D- Intervention within 24 hrs 07/24/2022 * Lisset Hernandez MD - 07/24/2022 8:14 AM EDT Images from the original note were not included. INTERVENTIONAL RADIOLOGY FOCUSED H&P and PRE-PROCEDURE NOTE: PCP: Lorna Bal APRN Referring Provider: Dr. Willingham Planned Procedure: Procedure Indication: Persistent, enlarging paraspinal (lumbar) collections Procedure Request: Procedure request received through the Interventional Radiology eDH order queue. Presenting Diagnosis/ Complaint: Tana Cavazos is a 27 y.o. female with a PMHx of TBI, spastic quadriplegia, CP, scoliosis s/p PSF(02/2009) recently admitted for lumbar subcutaneousabscesses and E. coli bacteremia status post IR guided drainage 07/09/2022. She presented to the ED yesterday evening when her caregiver noted that there had been increasing erythema and drainage from the distal and proximal aspects of the wound; patient baseline behavior and cognition have been within her normal range. Labs at that time: WBC 6.2, Hgb 10.5, PLT 364 and was HDS on RA. CT of the lumbar spine showed slightly larger fluid collections at the level of the irght iliac screw and the one at the level of L3 as compared to prior study from 06/24/22. Of note, one of the collections appears to be in close relationship with the hardware. IR history: Paraspinal drain placed 06/25/22 (Dr. Martino) Removed 07/01/22 due to minimal output (Dr. Jenkins) Replaced 07/04/22 due to reaccumulation (Dr. Martino) Site check on 07/08/22 Patient is now admitted to medicine. Ortho also consulted and a bedside I&D was performed (07/22) with fluid sent for cultures. IR re-consulted for drain placement into the collection around the sacroiliac screw and the collection in the lumbar region. Past Medical/Surgical History: Patient Active Problem List [...] All Drainage Procedures 06/25/2022 Mich Martino MD [facility] INTERVENTIONL RAD ??? IR ALL DRAINAGE PROCEDURES 07/04/2022 IR All Drainage Procedures 07/04/2022 Mich Martino MD [facility] INTERVENTIONL RAD ??? IR DRAIN CHECK/CHANGE/REMOVE 07/01/2022 IR Drain Check/Change/Remove 07/01/2022 Jamaal Jenkins, DO [facility] INTERVENTIONL RAD ??? PRO APPLY OF HIP CASTS, TWO LEGS 08/15/2010 CAST APPLICATION, HIP SPICA, BOTH LEGS performed by YAS OLIVER at [facility] OR ? ? PRO I&D, POST SPINE, LUMB/SACR/LUMBOSAC N/A 05/20/2014 @I & D, OPEN, DEEP ABSCESS, LUMBAR, SACRAL, LUMBOSACRAL performed by Freddy Isbell MD at [facility] OR ? ? PRO I&D, POST SPINE, LUMB/SACR/LUMBOSAC N/A 05/26/2014 @I & D, OPEN, DEEP ABSCESS, LUMBAR, SACRAL, LUMBOSACRAL performed by Freddy Isbell MD at [facility] OR ??? PRO IMPACT TOOTH REMOV COMP BONY N/A 06/14/2018 SURGICAL EXTRACTIONS, REMOVAL OF IMPACTED TOOTH, COMPLETELY BONY (WRVU 1.93) performed by Keith Cotton MD at [facility] ??? PRO OSTEOTOMY FEMUR SHAFT/SUPRACONDY 08/15/2010 ??OSTEOTOMY, FEMUR SHAFT OR SUPRACONDYLAR W/O FIXATION performed by YAS OLIVER at [facility] OR ??? PRO RECONSTRUC HIP SOCKET, RESEC FEM HEAD 08/15/2010 ??ACETABULOPLASTY (GIRDLESTONE), RESECTION FEMORAL HEAD, BILATERAL performed by YAS OLIVER [facility], [facility]1983 OR ??? PRO REMOVAL DEEP IMPLANT 08/15/2010 REMOVAL IMPLANT, DEEP, BRUNO performed by YAS OLIVER at [facility] OR ??? PRO REMOVAL ERUPTED TOOTH WITH ELEVATION OF MUCOPERIOSTEAL FLAP N/A 06/14/2018 SURGICAL EXTRACTIONS REQUIRING ELEVATION OF MUCOPERIOSTEAL FLAP AND REMOVAL OF BONE OR SECTION OF TOOTH (WRVU 1.09) performed by Keith Cotton MD at [facility] ??? PRO REMOVE INFUSN DEVICE/PUMP N/A 05/11/2014 REMOVAL OF SPINE INFUSION PUMP performed by Jamaal Samuel MD at [facility] OR ??? PRO REMOVE SPINAL CANAL CATHETER N/A 05/11/2014 REMOVAL OF INTRATHECAL OR EPIDURAL CATHETER performed by Jamaal Samuel MD at [facility] OR ??? PRO REPR, DURAL/CSF LEAK, NOT REQ LAMINECTOMY N/A 05/20/2014 @REPAIR DURAL\CSF LEAK,NOT REQUIRING LAMINECTOMY performed by Freddy Isbell MD at [facility] MAIN OR Medications: No current facility-administered medications on file [...] Take 1 tablet by mouth daily. Allergies: Fluoxetine, Tegaderm [transparent dressings], and Penicillins [...] comments: NO SMOKERS IN THE HOME Substance and Sexual Activity ??? Alcohol use: [...] Labs: Lab Results Component Value Date WBC 4.4 07/24/2022 HCT 31.4 (L) 07/24/2022 PLATELET 343 07/24/2022 BUN 11 07/24/2022 CREATININE 0.34 (L) 07/24/2022 ALKPHOS 177 (H) 07/07/2022 AST 20 07/07/2022 ALBUMIN 2.9 (L) 07/07/2022 BILIDIR <0.1 07/07/2022 BILITOT <0.2 (L) 07/07/2022 ALT 42 (H) 07/07/2022 PROT 6.0 (L) 07/07/2022 K 3.9 07/24/2022 Imaging: CT L-spine (07/22/22) Physical Exam: Pending (to be performed in angio the day of procedure) ASA: Pending (to be assessed in angio the day of procedure) Mallampati Class: Pending (to be assessed in angio the day of procedure) Assessment: 27 y.o. female with CP and scoliosis s/p PSF with paraspinal fulid collections s/p IR drain placements and removals as delineated above, now with clinical concern for increasing size of the paraspinal collections, one of which is in close relationship/continuous with the hardware. Patient had an I&D at bedside yesterday and was admitted to medicine. - IR re-consulted to place drains at both the collection around the sacroiliac screw and the collection in the lumbar region. - Primary team to place any desired fluid analysis labs. Reviewed with Attending: Dr. Melvin 07/24/2022 * Lisset Hernandez MD - 07/23/2022 7:27 AM EDT Images from the original note were not included. INTERVENTIONAL RADIOLOGY FOCUSED H&P and PRE-PROCEDURE NOTE: PCP: Lorna Bal APRN Referring Provider: Dr. Willingham Planned Procedure: Procedure Indication: Persistent, enlarging paraspinal (lumbar) collections Procedure Request: Procedure request received through the Interventional Radiology eDH order queue. Presenting Diagnosis/ Complaint: Tana Cavazos is a 27 y.o. female with a PMHx of TBI, spastic quadriplegia, CP, scoliosis s/p PSF(02/2009) recently admitted for lumbar subcutaneousabscesses and E. coli bacteremia status post IR guided drainage 07/09/2022. She presented to the ED yesterday evening when her caregiver noted that there had been increasing erythema and drainage from the distal and proximal aspects of the wound; patient baseline behavior and cognition have been within her normal range. Labs at that time: WBC 6.2, Hgb 10.5, PLT 364 and was HDS on RA. CT of the lumbar spine showed slightly larger fluid collections at the level of the irght iliac screw and the one at L3 as compared to prior study from 06/24/22. Of note, one of the collections appears to be in close relationship with the hardware. IR history: Paraspinal drain placed 06/25/22 (Dr. Martino) Removed 07/01/22 due to minimal output (Dr. Jenkins) Replaced 07/04/22 due to reaccumulation (Dr. Martino) Site check on 07/08/22 IR was consulted for potential drain placement Patient is now admitted to medicine. Ortho also consulted and a bedside I&D was performed (07/22) with fluid sent for cultures. Past Medical/Surgical History: Patient Active Problem List [...] All Drainage Procedures 06/25/2022 Mich Martino MD [facility] INTERVENTIONL RAD ??? IR ALL DRAINAGE PROCEDURES 07/04/2022 IR All Drainage Procedures 07/04/2022 Mich Martino MD [facility] INTERVENTIONL RAD ??? IR DRAIN CHECK/CHANGE/REMOVE 07/01/2022 IR Drain Check/Change/Remove 07/01/2022 Jamaal Jenknis, DO [facility] INTERVENTIONL RAD ??? PRO APPLY OF HIP CASTS, TWO LEGS 08/15/2010 CAST APPLICATION, HIP SPICA, BOTH LEGS performed by YAS OLIVER at [facility] OR ? ? PRO I&D, POST SPINE, LUMB/SACR/LUMBOSAC N/A 05/20/2014 @I & D, OPEN, DEEP ABSCESS, LUMBAR, SACRAL, LUMBOSACRAL performed by Freddy Isbell MD at [facility] OR ? ? PRO I&D, POST SPINE, LUMB/SACR/LUMBOSAC N/A 05/26/2014 @I & D, OPEN, DEEP ABSCESS, LUMBAR, SACRAL, LUMBOSACRAL performed by Freddy Isbell MD at [facility] OR ??? PRO IMPACT TOOTH REMOV COMP BONY N/A 06/14/2018 SURGICAL EXTRACTIONS, REMOVAL OF IMPACTED TOOTH, COMPLETELY BONY (WRVU 1.93) performed by Keith Cotton MD at [facility] ??? PRO OSTEOTOMY FEMUR SHAFT/SUPRACONDY 08/15/2010 ??OSTEOTOMY, FEMUR SHAFT OR SUPRACONDYLAR W/O FIXATION performed by YAS OLIVER at [facility] OR ??? PRO RECONSTRUC HIP SOCKET, RESEC FEM HEAD 08/15/2010 ??ACETABULOPLASTY (GIRDLESTONE), RESECTION FEMORAL HEAD, BILATERAL performed by YAS OLIVER [facility] OR ??? PRO REMOVAL DEEP IMPLANT 08/15/2010 REMOVAL IMPLANT, DEEP, BRUNO performed by YAS OLIVER at [facility] OR ??? PRO REMOVAL ERUPTED TOOTH WITH ELEVATION OF MUCOPERIOSTEAL FLAP N/A 06/14/2018 SURGICAL EXTRACTIONS REQUIRING ELEVATION OF MUCOPERIOSTEAL FLAP AND REMOVAL OF BONE OR SECTION OF TOOTH (WRVU 1.09) performed by Keith Cotton MD at [facility] ??? PRO REMOVE INFUSN DEVICE/PUMP N/A 05/11/2014 REMOVAL OF SPINE INFUSION PUMP performed by Jamaal Samuel MD at [facility] OR ??? PRO REMOVE SPINAL CANAL CATHETER N/A 05/11/2014 REMOVAL OF INTRATHECAL OR EPIDURAL CATHETER performed by Jamaal Samuel MD at [facility] OR ??? PRO REPR, DURAL/CSF LEAK, NOT REQ LAMINECTOMY N/A 05/20/2014 @REPAIR DURAL\CSF LEAK,NOT REQUIRING LAMINECTOMY performed by Freddy Isbell MD at [facility] OR Medications: No current facility-administered medications on file [...] Take 1 tablet by mouth daily. Allergies: Fluoxetine, Tegaderm [transparent dressings], and Penicillins [...] comments: NO SMOKERS IN THE HOME Substance and Sexual Activity ??? Alcohol use: [...] Lab Results Component Value Date WBC 6.2 07/23/2022 HCT 32.7 (L) 07/23/2022 PLATELET 364 (H) 07/23/2022 BUN 9 07/23/2022 CREATININE 0.31 (L) 07/23/2022 ALKPHOS 177 (H) 07/07/2022 AST 20 07/07/2022 ALBUMIN 2.9 (L) 07/07/2022 BILIDIR <0.1 07/07/2022 BILITOT <0.2 (L) 07/07/2022 ALT 42 (H) 07/07/2022 PROT 6.0 (L) 07/07/2022 K 3.6 07/23/2022 Imaging: CT L-spine (07/22/22) Physical Exam: Pending (to be performed in angio the day of procedure) ASA: Pending (to be assessed in angio the day of procedure) Mallampati Class: Pending (to be assessed in angio the day of procedure) Assessment: 27 y.o. female with CP and scoliosis s/p PSF with paraspinal fulid collections s/p IR drain placements and removals as delineated above, now with clinical concern for increasing size of the paraspinal collections, one of which is in close relationship/continuous with the hardware. Patient had an I&D at bedside yesterday and was admitted to medicine. IR was initially consulted for image guided drain placement, however, after discussion with primary team this morning, they would like engage with ortho spine in regards to pursuing operative debridement which we are in agreement with. Please reach out with questions, concerns, or if the plan changes and assistance from IR is needed.Otherwise, continued management per surgery. Reviewed with Attending: Dr. Melvin 07/23/2022 * Eddi Vázquez MD - 07/22/2022 10:00 PM EDT Inpatient Hospital Medicine - Admission Note Problem List: Active Hospital Problems Diagnosis ??? Abscess Resolved Hospital Problems No resolved problems to display. Active Non-Hospital Problems Diagnosis ??? 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 ??? Fracture of femur, distal ??? Contracture of elbow ??? Right leg pain ??? Presence of intrathecal baclofen pump ??? Spasticity ??? Scoliosis ??? Edema leg ??? Acquired dysplasia of hip, bilateral ??? 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 coli bacteremia s/p aspiration(with aspirate cultures being negative) who presented to the ED today with her caregiver for increased redness around the area andincreased purulent drainage over the last few days. Patient was previously discharged on levofloxacin to be continued through 08/17. She however denies any fevers or chills. Denies any cough or shortness of breath. Denies any nausea, vomiting or altered mental status. In the ED initial vitals on presentation-94/70, 96.F, sat 99% on room air. Labs with WBC at 5.6, mild anemia. BMP unremarkable however ESR elevated to 119 and CRP uptrending to 48.[address] of the lumbar spine showed mildly increasing soft tissue collection around the right iliac screw and a dorsal subcutaneous collection at L3 which is larger as well. Considering previous cultures being pansensitive E. coli she was switched to ceftriaxone and admitted to hospital medicine forfurther management. Likely IR guided drainage versus spine consult for drainage tomorrow. Review of Systems: Review of Systems 10 point ROS is negative except above Past Medical and Surgical History: PMH, PSH, FH, SH reviewed Past Surgical History: Procedure Laterality Date ??? BACK SURGERY scoliosis repair ??? HIP OSTEOTOMY bilateral ??? IR ALL DRAINAGE PROCEDURES 06/25/2022 IR All Drainage Procedures 06/25/2022 Mich Martino MD [facility] INTERVENTIONL RAD ??? IR ALL DRAINAGE PROCEDURES 07/04/2022 IR All Drainage Procedures 07/04/2022 Mich Martino MD [facility] INTERVENTIONL RAD ??? IR DRAIN CHECK/CHANGE/REMOVE 07/01/2022 IR Drain Check/Change/Remove 07/01/2022 Jamaal Jenkins, DO [facility] INTERVENTIONL RAD ??? PRO APPLY OF HIP CASTS, TWO LEGS 08/15/2010 CAST APPLICATION, HIP SPICA, BOTH LEGS performed by YAS OLIVER at [facility] MAIN OR ? ? PRO I&D, POST SPINE, LUMB/SACR/LUMBOSAC N/A 05/20/2014 @I & D, OPEN, DEEP ABSCESS, LUMBAR, SACRAL, LUMBOSACRAL performed by Freddy Isbell MD at [facility] MAIN OR ? ? PRO I&D, POST SPINE, LUMB/SACR/LUMBOSAC N/A 05/26/2014 @I & D, OPEN, DEEP ABSCESS, LUMBAR, SACRAL, LUMBOSACRAL performed by Freddy Isbell MD at [facility] MAIN OR ??? PRO IMPACT TOOTH REMOV COMP BONY N/A 06/14/2018 SURGICAL EXTRACTIONS, REMOVAL OF IMPACTED TOOTH, COMPLETELY BONY (WRVU 1.93) performed by Keith Cotton MD at [facility] ??? PRO OSTEOTOMY FEMUR SHAFT/SUPRACONDY 08/15/2010 ??OSTEOTOMY, FEMUR SHAFT OR SUPRACONDYLAR W/O FIXATION performed by YAS OLIVER at [facility] OR ??? PRO RECONSTRUC HIP SOCKET, RESEC FEM HEAD 08/15/2010 ??ACETABULOPLASTY (GIRDLESTONE), RESECTION FEMORAL HEAD, BILATERAL performed by AYS OLIVER [facility] OR ??? PRO REMOVAL DEEP IMPLANT 08/15/2010 REMOVAL IMPLANT, DEEP, BRUNO performed by YAS OLIVER at [facility] OR ??? PRO REMOVAL ERUPTED TOOTH WITH ELEVATION OF MUCOPERIOSTEAL FLAP N/A 06/14/2018 SURGICAL EXTRACTIONS REQUIRING ELEVATION OF MUCOPERIOSTEAL FLAP AND REMOVAL OF BONE OR SECTION OF TOOTH (WRVU 1.09) performed by Keith Cotton MD at [facility] ??? PRO REMOVE INFUSN DEVICE/PUMP N/A 05/11/2014 REMOVAL OF SPINE INFUSION PUMP performed by Jamaal Samuel MD at [facility] OR ??? PRO REMOVE SPINAL CANAL CATHETER N/A 05/11/2014 REMOVAL OF INTRATHECAL OR EPIDURAL CATHETER performed by Jamaal Samuel MD at [facility] OR ??? PRO REPR, DURAL/CSF LEAK, NOT REQ LAMINECTOMY N/A 05/20/2014 @REPAIR DURAL\CSF LEAK,NOT REQUIRING LAMINECTOMY performed by Freddy Isbell MD at [facility] OR Prior To Admission Medications: (Not in a hospital admission) Allergies: Allergies Allergen Reactions ??? Fluoxetine Other (See Comments) HIVES, HEART RACES ??? Tegaderm [Transparent Dressings] Itching and Dermatitis Please use [id number] ??? Penicillins Family History: Family History Problem Relation Age of Onset ??? Cancer Maternal Grandmother ??? Heart Disease Maternal Grandfather Social History and [...] comments: NO SMOKERS IN THE HOME Substance and Sexual Activity ??? Alcohol use: No ??? Drug use: No ??? Sexual activity: Not on file Other Topics Concern ??? Not on file Social History Narrative ??? Not on file Social Determinants of Health Financial Resource Strain: Not on file Food Insecurity: Not on file Transportation Needs: Not on file Physical Activity: Not on file Housing Stability: Not on file Immunizations: Immunization History Administered Date(s) Administered ??? Influenza Vaccine (Novel) [id number], Injectable 02/25/2009 ??? Influenza Vaccine w/Preservative, Split 04/25/2011 ??? Influenza Vaccine, Whole 03/27/2009 Physical Exam: Last Set of Vitals and range of vitals over past 24 hours: Last value Range last 24 hrs Temperature Temp: 35.6 ??C (96 ??F) Temp: [35.6 ??C (96 ??F)] Heart Rate Heart Rate: 88 Heart Rate: [88] Blood Pressure BP: (!) 86/61 (admitting team paged. pt asymptomatic) BP: (86-110)/(61-81) Respiratory Rate Resp: 20 Resp: [16-20] SpO2 SpO2: 100 % SpO2: [97 %-100 %] There is no height or weight on file to calculate BMI. Physical Exam Constitutional: Appearance: Normal appearance. HENT: Head: Normocephalic. Nose: Nose normal. Mouth/Throat: Mouth: Mucous membranes are moist. Cardiovascular: Rate and Rhythm: Normal rate and regular rhythm. Pulses: Normal pulses. Heart sounds: Normal heart sounds. Pulmonary: Effort: Pulmonary effort is normal. Breath sounds: Normal breath sounds. Abdominal: General: Abdomen is flat. There is no distension. Palpations: Abdomen is soft. Tenderness: There is no abdominal tenderness. Musculoskeletal: General: No swelling or tenderness. Skin: General: Skin is warm and dry. Capillary Refill: Capillary refill takes less than 2 seconds. Neurological: Mental Status: She is alert. Mental status is at baseline. Psychiatric: Mood and Affect: Mood normal. Laboratory (Last 24 Hours): Recent Results (from the past 24 hour(s)) Basic Metabolic Panel (non-fasting) Result Value Ref Range Glucose Lvl 99 65 - 199 mg/dL BUN 10 8 - 18 mg/dL Creatinine 0.34 (L) 0.70 - 1.20 mg/dL Sodium 139 135 - 145 mmol/L Potassium 3.8 3.5 - 5.0 mmol/L Chloride 103 98 - 107 mmol/L CO2 26 22 - 31 mmol/L Anion Gap 10 5 - 15 mmol/L Calcium 9.4 8.5 - 10.5 mg/dL Estimated GFR 143 >=60 mL/min/1.73 m?? Sedimentation rate Result Value Ref Range Sed Rate >119 (H) 2 - 37 mm/hr CRP, acute inflammation Result Value Ref Range CRP 48.9 (H) <=4.9 mg/L Hemogram Result Value Ref Range WBC 5.6 4.0 - 9.5 x10(3)/mcL RBC 4.58 4.00 - 5.21 x10(6)/mcL Hemoglobin 11.2 (L) 11.7 - 15.5 g/dL Hematocrit 36.2 35.7 - 45.8 % MCV 79.0 (L) 82.6 - 94.4 fL MCH 24.5 (L) 27.1 - 32.0 pg MCHC 30.9 (L) 31.7 - 35.0 g/dL Platelets 449 (H) 145 - 357 x10(3)/mcL RDWSD 52.9 (H) 37.0 - 46.0 fL RDWCV 18.3 (H) 11.5 - 14.1 % MPV 9.2 7.6 - 12.9 fL nRBC % Auto 0.0 % nRBC Abs Auto 0.000 0.000 - 0.000 x10(3)/mcL Differential, Automated Result Value Ref Range Neutrophils % 53.7 % Neutr Abs (ANC) 3.01 1.70 - 6.10 x10(3)/mcL Lymphocytes % 37.4 % Lymphocytes Abs 2.1 0.9 - 3.2 x10(3)/mcL Monocytes % 6.2 % Monocyte Abs 0.4 0.3 - 0.9 x10(3)/mcL Eosinophils % 1.4 % Eosinophils Abs 0.1 0.0 - 0.4 x10(3)/mcL Basophils % 1.1 % Basophils Abs 0.1 0.0 - 0.1 x10(3)/mcL Immature Gran % 0.20 % Debora Gran Abs 0.01 0.00 - 0.04 x10(3)/mcL Cell Count Body Fluid Other Result Value Ref Range Spec Type BF Other Color BF Red Appearance BF Clotted WBC BF Ct Clotted Polymorph % Clotted % Mononuc % Clotted % Polymorph BF ABS Clotted /mcl Mononuc ABS Clotted /mcl Body Fluid Culture, Aerobic Specimen: Fluid Result Value Ref Range Gram Stain Many Neutrophils seen No microorganisms seen. Basic Metabolic Panel (non-fasting) Result Value Ref Range Glucose Lvl 101 65 - 199 mg/dL BUN 9 8 - 18 mg/dL Creatinine 0.31 (L) 0.70 - 1.20 mg/dL Sodium 141 135 - 145 mmol/L Potassium 3.6 3.5 - 5.0 mmol/L Chloride 105 98 - 107 mmol/L CO2 23 22 - 31 mmol/L Anion Gap 13 5 - 15 mmol/L Calcium 8.9 8.5 - 10.5 mg/dL Estimated GFR 146 >=60 mL/min/1.73 m?? Hemogram Result Value Ref Range WBC 6.2 4.0 - 9.5 x10(3)/mcL RBC 4.19 4.00 - 5.21 x10(6)/mcL Hemoglobin 10.5 (L) 11.7 - 15.5 g/dL Hematocrit 32.7 (L) 35.7 - 45.8 % MCV 78.0 (L) 82.6 - 94.4 fL MCH 25.1 (L) 27.1 - 32.0 pg MCHC 32.1 31.7 - 35.0 g/dL Platelets 364 (H) 145 - 357 x10(3)/mcL RDWSD 53.3 (H) 37.0 - 46.0 fL RDWCV 18.6 (H) 11.5 - 14.1 % MPV 9.0 7.6 - 12.9 fL nRBC % Auto 0.0 % nRBC Abs Auto 0.000 0.000 - 0.000 x10(3)/mcL Differential, Automated Result Value Ref Range Neutrophils % 50.7 % Neutr Abs (ANC) 3.15 1.70 - 6.10 x10(3)/mcL Lymphocytes % 40.3 % Lymphocytes Abs 2.5 0.9 - 3.2 x10(3)/mcL Monocytes % 7.2 % Monocyte Abs 0.4 0.3 - 0.9 x10(3)/mcL Eosinophils % 1.1 % Eosinophils Abs 0.1 0.0 - 0.4 x10(3)/mcL Basophils % 0.5 % Basophils Abs 0.0 0.0 - 0.1 x10(3)/mcL Immature Gran % 0.20 % Debora Gran Abs 0.01 0.00 - 0.04 x10(3)/mcL Microbiology: Blood Cultures: Urine Cultures: Radiology: CXR - CT - ?? IMPRESSION 1. The soft tissue collection about the dislocated right iliac screw is mildly larger. ?? 2. The dorsal subcutaneous collection at T12 not significantly changed. ?? 3. The dorsal subcutaneous collection at L3 which is associated with soft tissue fullness along the left L2 and L3 lamina is larger. ?? 4. Ultrasound may be helpful for further evaluation of these collections. ?? 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 coli bacteremia s/p aspiration(with aspirate cultures being negative) on levofloxacin 04/18 who presented to the ED today with increased redness and purulent drainage from the same area In the ED initial vitals on presentation-94/70, 96.F, sat 99% on room air. Labs with WBC at 5.6, mild anemia. BMP unremarkable however ESR elevated to 119 and CRP uptrending to 48.[address] of the lumbar spine showed mildly increasing soft tissue collection around the right iliac screw and a dorsal subcutaneous collection at L3 which is larger as well. Considering previous cultures being pansensitive E. coli she was switched to ceftriaxone and admitted to hospital medicine forfurther management. Likely IR guided drainage versus spine consult for drainage tomorrow. #Lumbar subcutaneous abscesses - On Levaquin at home, previous blood cultures growing E. coli with aspirate cultures being negative - We will switch to ceftriaxone for now - IR consult for drainage ordered, may need spine consult for debridement/drainage #TBI with spastic quadriplegia #Cerebral palsy, nonverbal #Scoliosis s/p PSF, prior bilateral Girdlestone - Continue baclofen 10 Mg p.o. twice daily - Tylenol as needed ?? #DVT prophylaxis-Lovenox A copy of this document will be sent to the patient's Primary Care Physician and/or Referring Physician. Eddi Vázquez MD 07/23/2022 documented in this encounter ED Notes * Giorgi Woo RN - 07/23/2022 3:45 PM EDT Ortho consult back at bedside * Giorgi Woo RN - 07/23/2022 1:24 PM EDT Ortho consult at bedside * Giorgi Woo RN - 07/23/2022 9:23 AM EDT Consulting provider at bedside * Giorgi Woo RN - 07/23/2022 8:26 AM EDT IV team at bedside * Alma Prescott RN - 07/23/2022 12:12 AM EDT Pt moved into a hospital bed, external catheter placed. Will continue to monitor. Corporate Meeting Planner at bedside. * Samuel Comer MD - 07/22/2022 7:33 PM EDT ED Resident Note HPI: Tana Cavazos is a 27 y.o. female PMH of TBI with spastic quadriplegia, CP, nonverbal, scoliosis, s/p PSF(02/2009), prior bilateral Girdlestone's-2010, recent admission to the hospital medicine service for lumbar subcutaneous abscesses and E. coli bacteremia status post IR guided drainage discharged 07/09/2022, who presents to the Emergency Department with increasing erythema and drainage from prior site infection. Patient has been taking levofloxacin as an outpatient. Her caregiver notes that over the past few days there has been increasing erythema and drainage from both the distal and proximal aspects of thewound, at the proximal aspect of the lumbar spinal incision and separately from proximal aspect of anal fold. Patient's caregiver notes that the patient has been acting normally and at her baseline level of interaction and cognition. She is nonverbal at baseline. Patient caregiver spoke with the infectious disease team who encouraged her to bring the patient to the ED for further evaluation basedon the volume of drainage that the patient had. ROS as per HPI Vitals: ED Triage Vitals BP: 94/70 [07/22/22 1440] Heart Rate: 88 [07/22/22 1438] Resp: 16 [07/22/22 143] Temp: 35.6 ??C (96 ??F) [07/22/22 1438] Temp src: Temporal [07/22/22 1438] SpO2: 99 % [07/22/22 1438] O2 Device: RA [07/22/22 1805] O2 Flow Rate (L/min): n/a Physical Exam Constitutional: Appearance: Normal appearance. HENT: Head: Normocephalic and atraumatic. Cardiovascular: Rate and Rhythm: Normal rate and regular rhythm. Pulses: Normal pulses. Heart sounds: Normal heart sounds. Pulmonary: Effort: Pulmonary effort is normal. Breath sounds: Normal breath sounds. Abdominal: General: Abdomen is flat. Palpations: Abdomen is soft. Skin: General: Skin is warm. Capillary Refill: Capillary refill takes less than 2 seconds. Comments: See media images Diffuse erythema of lumbar spinal incision Separate are of erythema at proximal aspect of anal crease with mild induration, no fluctuance appreciated No active drainage Neurological: Mental Status: She is alert. Mental status is at baseline. ED Course: I have reviewed labs and imaging, images and available reports, and they are significant for: recurrence/persistence of surgical site infection CT Lumbar Spine w Contrast Final Result 1. The soft tissue collection about the dislocated right iliac screw is mildly larger. 2. The dorsal subcutaneous collection at T12 not significantly changed. 3. The dorsal subcutaneous collection at L3 which is associated with soft tissue fullness along the left L2 and L3 lamina is larger. 4. Ultrasound may be helpful for further evaluation of these collections. Thank you for letting us participate in the care of this patient. If you are a health care provider and have any questions regarding this report, please contact the number below. For patients who have questions please contact the health ambulatory care that requested your imaging first. Electronically signed by: Jamaal Villafuerte [facility] ([phone]), at 07/22/2022 8:03 PM Recent Results (from the past 24 hour(s)) Basic Metabolic Panel (non-fasting) Result Value Ref Range Glucose Lvl 99 65 - 199 mg/dL BUN 10 8 - 18 mg/dL Creatinine 0.34 (L) 0.70 - 1.20 mg/dL Sodium 139 135 - 145 mmol/L Potassium 3.8 3.5 - 5.0 mmol/L Chloride 103 98 - 107 mmol/L CO2 26 22 - 31 mmol/L Anion Gap 10 5 - 15 mmol/L Calcium 9.4 8.5 - 10.5 mg/dL Estimated GFR 143 >=60 mL/min/1.73 m?? Sedimentation rate Result Value Ref Range Sed Rate >119 (H) 2 - 37 mm/hr CRP, acute inflammation Result Value Ref Range CRP 48.9 (H) <=4.9 mg/L Hemogram Result Value Ref Range WBC 5.6 4.0 - 9.5 x10(3)/mcL RBC 4.58 4.00 - 5.21 x10(6)/mcL Hemoglobin 11.2 (L) 11.7 - 15.5 g/dL Hematocrit 36.2 35.7 - 45.8 % MCV 79.0 (L) 82.6 - 94.4 fL MCH 24.5 (L) 27.1 - 32.0 pg MCHC 30.9 (L) 31.7 - 35.0 g/dL Platelets 449 (H) 145 - 357 x10(3)/mcL RDWSD 52.9 (H) 37.0 - 46.0 fL RDWCV 18.3 (H) 11.5 - 14.1 % MPV 9.2 7.6 - 12.9 fL nRBC % Auto 0.0 % nRBC Abs Auto 0.000 0.000 - 0.000 x10(3)/mcL Differential, Automated Result Value Ref Range Neutrophils % 53.7 % Neutr Abs (ANC) 3.01 1.70 - 6.10 x10(3)/mcL Lymphocytes % 37.4 % Lymphocytes Abs 2.1 0.9 - 3.2 x10(3)/mcL Monocytes % 6.2 % Monocyte Abs 0.4 0.3 - 0.9 x10(3)/mcL Eosinophils % 1.4 % Eosinophils Abs 0.1 0.0 - 0.4 x10(3)/mcL Basophils % 1.1 % Basophils Abs 0.1 0.0 - 0.1 x10(3)/mcL Immature Gran % 0.20 % Debora Gran Abs 0.01 0.00 - 0.04 x10(3)/mcL Assessment and Plan: 27 y.o. female with PMH of TBI with spastic quadriplegia, CP, nonverbal, scoliosis, s/p PSF(02/2009), prior bilateral Girdlestone's-2010, recent admission to the hospital medicine service for lumbar subcutaneous abscesses and E. coli bacteremia status post IR guided drainage discharged 07/09/2022, who presents to the Emergency Department with increasing erythema and drainage from prior site infection. Overall, patient is afebrile with stable vitals and a reassuring white blood cell count of 5.6.She does not appear to be systemically ill from this. It is unclear whether or not the infection tracks to a deep deeper fluid collection or is superficial. On my exam I did not palpate a large area of fluctuance that was amenable to drainage, although it is possible that this site tracks deeper. ACT with contrast has been ordered to better characterize the extent of infection. At the least, thepatient has ongoing cellulitis with superficial fluid collection as the source of the drainage which may be amenable to continuation of outpatient oral antibiotic therapy with or without addition of additional agent to the levofloxacin which the patient has been taking. Final plan will be pending the results of the CT scan. Will plan to trial bedside I&D and send micro if there is no obvious need for imminent surgical I&D, and will discuss case with ID team. Addendum 2100: CT with enlargement of multiple prior lumbar abscesses. ESR > 119 (110), CRP 48.9 (16.8). Pt maybenefit from admission for IV abx and possible repeat IR guided drainage along with ID consult given that her infection appears to be worsening/she is at risk of again becoming systemically ill from this in the setting of her recent E. Coli bacteremia. Bedside aspiration performed with ~2.5ccs serosanguinous fluid aspirated from distal pilonidal superficial fluid collection. Sent for cultures/GS and cell count. Samuel Comer MD 07/22/22 Samuel Comer MD Resident 07/22/22 0805 Associated attestation - Alek Tavares MD - 07/25/2022 12:07 PM EDT ED ATTENDING ATTESTATION NOTE The patient [...] or in my separate note. Brief Summary: History obtained from floor care technician 27 y.o. female with history of traumatic brain injury, spastic quadriplegia and recent admission for paravertebral infection brought in by caregiver for concern about recurrent infection in the face of Levaquin. Specifically she notes 2 lesions, one at the superior and one at the inferior ends of surgical scar x10 days. She reports that the superior wound began to drain about 5 days ago. No fevers, chills, nausea, vomiting, other systemic symptoms. On exam pus expression superiorly, the inferior lesion is fluctuant not draining. Minimal surrounding erythema. ED course: Inflammatory markers elevated. CT scan was performed and reviewed. I&D was performed and purulent material sent for culture. Admitted to hospital medicine. I was present for and supervised the foster portions of the procedure (I&D) and immediate available for the entire procedure. * Diana Robert RN - 07/22/2022 6:45 PM EDT IV team at bedside * Diana Robert RN - 07/22/2022 6:06 PM EDT Introduced self/role to pt and caregiver, assisted pt into bed with pelon, attached to pulse oximetry monitoring and obtained VS. Pt has special needs, is at baseline per caregiver. Pt's oxygen saturation stable on RA, HR in the 70s. Pt has wounds to back, afebrile. Warm blankets provided. Bed locked and in lowest position. * Bernardo Epps LPN - 07/22/2022 2:48 PM EDT Patient will need US Guided IV for labs and fluids. Patient is special needs and a difficult stick,the least amount of sticks the better for patient * Phyllis Koenig PA - 07/22/2022 2:36 PM EDT 27F recent admission for spinal abscess 06/24/22-07/09 - now presenting for a new wound along the incision site where she had a spinal surgery in the past. Presenting for wound check. No fevers or chills. She is on Levofloxacin. Pt is alert, nontoxic appearing. Phyllis Koenig PA 07/22/22 1441 documented in this encounter Miscellaneous Notes * Plan of Care - Jimbo Willams RN - 08/01/2022 3:07 PM EDT Tana Cavazos discharged to home by wheelchair van with caretakers, Fannie and Mariano. All belongings sent with patient. MANNY removed. Discharge instructions, medications, and follow-up appointments reviewed, education provided on 08/01, all questions answered. Caregivers instructed to call with concerns.Video recorded on instructions of how to flush CARMELLA drains. Instructions and materials given to caretakers. Awaiting ride set for 1700. * Care Management Discharge - Yas John RN - 08/01/2022 9:58 AM EDT CARE MANAGEMENT FINAL DISCHARGE NOTE Chart reviewed, care reviewed with primary team and at interdisciplinary rounds. Patient is medically ready for discharge to home. Needs for Transition of Care: Plan for discharge is: Home w/o Services Outpatient Agency/Support Group Needs: None Agency Referrals & Follow-up Care:N/A Transportation: family or friend will provide Wheelchair van/Ambulance? No Functional status prior to admission: Completely Dependent Home Environment: Others in the home: friend(s), other (see comments) (caregiver Fannie). Current Living Arrangements: home/apartment/condo. Accessibility Concerns:ramp to enter. Current Functional Ability: Completely Dependent DME used at home: lift device, hospital bed DME Needed at Discharge: N/A Patient is insured through: Primary Insurance: [place] Pay[place] / Plan: [place] / Product Type: *No Product type* / Secondary Insurance: N/A Prescription Coverage: Yes This plan was formulated with input from patient, caregivers and team. All are in agreement with plan. Yas John RN, BSN, LALA Coater Helper Pager [phone] * Plan of Care - Jimbo Willams RN - 07/31/2022 3:30 PM EDT OUTCOME EVALUATION NOTE: OUTCOME SUMMARY: Patient remains alert and nonverbal, VSS and does not appear to be in any pain. Caregivers remain at bedside and are very supportive of pt. CARMELLA drains with small amount of output throughout shift, please see Doc Flows. No acute changes, will continue to monitor. PLAN MOVING FORWARD: PO abx INDIVIDUALIZED FALL PREVENTION INTERVENTIONS: Patient-specific fall risk factors per assessment: [current deficits]: IV sites, CP Assistance [level of assistance required for transfers and ambulation]: 2A lift Supervision [direct monitoring required during toileting and ADLs]: Eyes on, hands on Surveillance [continuous indirect monitoring]: Bed alarm, masimo, purposeful rounding * Care Management - Yas John RN - 07/31/2022 11:40 AM EDT OFFICE OF CARE MANAGEMENT PROGRESS NOTE LOS: Hospital Day 9 days Chart reviewed, care reviewed with primary team and at interdisciplinary rounds. Patient continues to meet inpatient level of care related to: lumbar abscess. Decision Maker: Guardian Guardianship paperwork on file: Yes Decision Maker Name: Anderson Thorpe Decision Maker Contact Information: [phone] (M) Proxy Activated: Yes Functional status prior to admission: Completely Dependent Home Environment: Others in the home: friend(s), other (see comments) (caregiver Fannie). Current Living Arrangements: home/apartment/condo. Accessibility Concerns: ramp to enter. Current Functional Ability: Completely Dependent DME used at home: lift device, hospital bed DME Needed at Discharge: No Patient is insured through: Primary Insurance: [place] / Plan[place] / Product Type: *No Product type* / Secondary Insurance: N/A Plan for discharge is: Home w/o Services Outpatient Agency/Support Group Needs: None Agency Referrals: Not Applicable Transportation family or friend will provide Barriers to discharge: Discharge planning Supports: Caregiver support Plan going forward: Care Management will continue to follow and assist with discharge planning and coordination of care as indicated. Anticipated Date of Discharge: 08/01/2022 Yas John RN, BSN, LALA Coater Helper Pager [phone] * Plan of Care - Guerita Quinonez RN - 07/30/2022 2:27 AM EDT OUTCOME EVALUATION NOTE: OUTCOME SUMMARY: Pt nonverbal at baseline. MARYA orientation. Arouses to voice and responds to commands. VSS on RA Medications administered per MAR crushed in chocolate pudding. CARMELLA drain flushed per order Purewick in place, incontinence care provided. Caregiver at bedside overnight Positive BC back around 0200. MD notified and a repeat set ordered. Pt resting between care No events, safety maintained PLAN MOVING FORWARD: Abx Dc planning INDIVIDUALIZED FALL PREVENTION INTERVENTIONS: Patient-specific fall risk factors per assessment: [current deficits]: CP, quadriplegia, PIV Assistance [level of assistance required for transfers and ambulation]: 2 assist with lift Supervision [direct monitoring required during toileting and ADLs]: Hands on Surveillance [continuous indirect monitoring]: Bed alarm on, call light in reach, masimo, purposeful rounding Patient-specific fall prevention interventions for sensory deficits provided, if applicable: [X] N/A CARE PLAN GOAL OUTCOME EVALUATION: Guerita Quinonez, EUNICE * Plan of Care - Helena Serrano RN - 07/29/2022 1:13 PM EDT OUTCOME EVALUATION NOTE: OUTCOME SUMMARY: MARYA orientation, pt nonverbal. Caregiver at bedside. PO ABX administered. PRN Ibuprofen x 1 for 6/10 pain via FACES, with good effect. CARMELLA drain flushed per order. Incontinence care provided. Resting between care. VSS on RA. Assessment as filed. Scheduled medications administered. Will continue to monitor and alert MD if any changes. PLAN MOVING FORWARD: PO ABX, pain management, d/c planning INDIVIDUALIZED FALL PREVENTION INTERVENTIONS: Patient-specific fall risk factors per assessment: [current deficits]: CP, Quadriplegia, IV site Assistance [level of assistance required for transfers and ambulation]: 2 assist with lift Supervision [direct monitoring required during toileting and ADLs]: Hands on Surveillance [continuous indirect monitoring]: Room near unit station, bed alarm on, call fay within reach, caregiver at bedside, Masimo, purposeful rounding Patient-specific fall prevention interventions for sensory deficits provided, if applicable: N/A CARE PLAN GOAL OUTCOME EVALUATION: * Plan of Care - Maren Barnard RN - 07/29/2022 2:44 AM EDT OUTCOME EVALUATION NOTE: OUTCOME SUMMARY: Pt non-verbal. Pleasant and caregiver helps facilitate communication. On RA. Pt. Running tachy 120s. Ill appearing. Showing signs of fever but no temp when taken. MD notified. COVID test order (neg).Resp PCR (+enterovirus), UA (neg), BC pending, lactic (neg), mag (low-IV mag ordered), CBC, BMP. Straight cath done to obtain urine. Tylenol given for pain/fever. Transferred care to different room at 0200. PLAN MOVING FORWARD: Monitor S&S UOP D/c planning INDIVIDUALIZED FALL PREVENTION INTERVENTIONS: Patient-specific fall risk factors per assessment: [current deficits]: quadraplegia Assistance [level of assistance required for transfers and ambulation]: dependent Supervision [direct monitoring required during toileting and ADLs]: Hands on, eyes on Surveillance [continuous indirect monitoring]: Purposeful rounding, room near nursing station, caregiver present Patient-specific fall prevention interventions for sensory deficits provided, if applicable: yes. caregivers non medical present * Plan of Care - Tasha Dseai RN - 07/29/2022 2:03 AM EDT OUTCOME EVALUATION NOTE: OUTCOME SUMMARY: This RN assumed care of pt at 0200. Pt alert but non-verbal and unable to assess orientation questions. Caregiver at bedside. VSS on RA. LR infusing at 100 mL/hr and discontinued at 0400. IV Mag given. External catheter in place. CARMELLA drain insertion sites C/D/I and minimal serosanguinous output noted in each (see Flowsheet). Respiratory panel resulted and pt positive for Enterovirus (see Results).This RN agrees with the previous RN's assessment. Safety maintained. Will continue to monitor. PLAN MOVING FORWARD: Abx CARMELLA drains VS q6h [place] INDIVIDUALIZED FALL PREVENTION INTERVENTIONS: Bed alarm, wheels locked and bed in lowest position, side rails up x3, call fay/personal items within reach, non-skid socks when OOB, purposeful hourly rounding, room near nurse's station Patient-specific fall risk factors per assessment: [current deficits]: IV site, generalized weakness, quadriplegia Assistance [level of assistance required for transfers and ambulation]: 2 Assist w/ lift Supervision [direct monitoring required during toileting and ADLs]: Hands on Surveillance [continuous indirect monitoring]: Masimo on Patient-specific fall prevention interventions for sensory deficits provided, if applicable: [X] N/A CPG GOAL OUTCOME EVALUATION: * Plan of Care - Zayda Matthews RN - 07/28/2022 7:31 PM EDT OUTCOME EVALUATION NOTE: OUTCOME SUMMARY: Patient alert, patient nonverbal- unable to assess orientation. BP down to 90/54, MD notified. Continuous fluids initiated and running at 100mL/hr. HR up to 120s, team aware. Tele Dc'd. CT lumbar of the spine completed. BMx1 during shift, incontinence care provided. External catheter in place. All medications administered, see MAR. Patient resting in between care. Safety maintained. PLAN MOVING FORWARD: Fluids, Monitor VS, I&Os, D/C planning INDIVIDUALIZED FALL PREVENTION INTERVENTIONS: Patient-specific fall risk factors per assessment: [current deficits]: Quadriplegia, hospital environment Assistance [level of assistance required for transfers and ambulation]: 2 assist with a lift Supervision [direct monitoring required during toileting and ADLs]: Hands on Surveillance [continuous indirect monitoring]: Masimo, bed alarm in use, purposeful rounding, home care music therapist at bed side. * Care Management - Yas John RN - 07/28/2022 11:42 AM EDT OFFICE OF CARE MANAGEMENT PROGRESS NOTE LOS: Hospital Day 6 days Chart reviewed, care reviewed with primary team and at interdisciplinary rounds. Patient continues to meet inpatient level of care related to: abscess. Decision Maker: Guardian Guardianship paperwork on file: Yes Decision Maker Name: Anderson Thorpe Decision Maker Contact Information: [phone] (M) Proxy Activated: Yes Functional status prior to admission: Completely Dependent Home Environment: Others in the home: friend(s), other (see comments) (caregiver Fannie). Current Living Arrangements: home/apartment/condo. Accessibility Concerns: ramp to enter. Current Functional Ability: Completely Dependent DME used at home: lift device, hospital bed DME Needed at Discharge: No Patient is insured through: Primary Insurance: [place] / Plan[place] / Product Type: *No Product type* / Secondary Insurance: N/A Plan for discharge is: Home w/o Services Outpatient Agency/Support Group Needs: None Agency Referrals: TBD Transportation: family or friend will provide Barriers to discharge: Discharge planning Supports: Caregiver support Plan going forward: Care Management will continue to follow and assist with discharge planning and coordination of care as indicated. Anticipated Date of Discharge: 07/29/2022 Yas John RN, BSN, LALA Coater Helper Pager [phone] * Plan of Care - Maren Barnard RN - 07/28/2022 3:17 AM EDT OUTCOME EVALUATION NOTE: OUTCOME SUMMARY: Pt non-verbal. Pleasant and caregiver helps facilitate communication. On . Pt. Running tachy 130's-140's. notified. 1LR slow bolus given. HR improving overnight. UOP monitored via external cath.Meds given per JUN. Assessment as charted. CARMELLA drains flushed w/ 5cc per order.Will contact MD if anything changes. Pt. With <150cc UOP all night. Bladder scan showed <50cc in bladder. MD notified. No orders at this time. PLAN MOVING FORWARD: Monitor UOP D/c planning INDIVIDUALIZED FALL PREVENTION INTERVENTIONS: Patient-specific fall risk factors per assessment: [current deficits]: quadraplegia Assistance [level of assistance required for transfers and ambulation]: dependent Supervision [direct monitoring required during toileting and ADLs]: Hands on, eyes on Surveillance [continuous indirect monitoring]: Purposeful rounding, room near nursing station, caregiver present Patient-specific fall prevention interventions for sensory deficits provided, if applicable: yes. caregivers non medical present * Plan of Care - Osman Bowen RN - 07/25/2022 5:28 PM EDT OUTCOME EVALUATION NOTE: OUTCOME SUMMARY: Pt nonverbal, marya orientation. No s/sx of pain. Reddened areas on back, no drainage observed. Bulb suction has minimal output, flushed per orders. Caregiver at the bedside, attentive to patient's needs. Resting in bed between care, safety maintained. PLAN MOVING FORWARD: D/c planning Mx VS, Labs Drains abx INDIVIDUALIZED FALL PREVENTION INTERVENTIONS: Patient-specific fall risk factors per assessment: [current deficits]: Generalized weakness, nonverbal, pain, contractures Assistance [level of assistance required for transfers and ambulation]: 2A w/ lift Supervision [direct monitoring required during toileting and ADLs]: hands on Surveillance [continuous indirect monitoring]: Purposeful rounding, call fay in reach, caregiver at the bedside Patient-specific fall prevention interventions for sensory deficits provided, if applicable: [X] Yes CARE PLAN GOAL OUTCOME EVALUATION: * Initial Assessments - Yas John RN - 07/25/2022 1:42 PM EDT Office of Care Management Initial Assessment Yas John RN reviewed record and discussed patient with Care Team. Source of Information: Team, bedside nurse, medical record, and Chart Review Reason for Hospitalization: abscess Covid Vaccination Status: 1st, 2nd & booster Past medical History: No past medical history on file. Hospitalizations Within the Past 30 Days: Current Decision-Making Capacity: Guardian Name(s) of Court Appointed Guardian(s): Anderson Maurilio Court Appointed Guardian(s) Contact Information: [phone] (H) [phone] (M) Proxy Activated: Yes Guardianship paperwork on file?: Yes Advance Care Planning: Attempt Cardiopulmonary Resuscitation - Inpatient <no information> -Advanced Directive: Yes, on file Who is your DPOA-HC?: Parent Current Coping/Education/Information Needs: caregivers aware of plans Current Functional Ability: Completely Dependent Functional Status Prior to Admission: Completely Dependent Prior ADLs & IADLs: Assistance Needed with ADLs & IADLs Cooking / Eating: Completely Dependent Cleaning: Family / Friends do Cleaning Laundry: Has Assistance Pet Care: N/A Driving: Family / Friends Provide Rides Groceries: Family / Friends Provide Groceries Medication Management: Family / Friend / Caregiver Assists with Medications (who) Bathing: Family / Friends do Bathing Dressing: Family / Friends do Dressing Home Environment: Others in the home: friend(s), other (see comments) (caregiver Fannie). Current Living Arrangements: home/apartment/condo. Accessibility Concerns:ramp to enter. Resource / Environmental Concerns: Resource/Environmental Concerns: none Current DME: lift device, hospital bed Home Address listed as: [address] [place] [id number] Social & Family Supports: All names listed below confirmed with patient as current and correct Extended Emergency Contact Information [facility] Relation: Mother Secondary Emergency Contact: [facility] Relation: Step parent Current Care Provided by: other (see comments) (caregivers) Provides Primary Care For: no one, unable/limited ability to care for self Caregiver if needed: other (see comments) (17/[address] at admission) Quality of Family relationships: helpful, involved, supportive Community Resources being provided currently: none Behavioral Health History: none noted Substance Use/Abuse listed: Social History Tobacco Use Smoking Status Never Smokeless Tobacco Never Tobacco Comments NO SMOKERS IN THE HOME 0 No problems reported 1-2 Low level 3-5 Moderate level 6-8 Substantial level 9- 10 Severe level 0 to 7 points: Low risk 8 to 15 points: Medium risk 16 to 19 points: High risk 20 to 40 points: Addiction likely Other Pertinent/Service Specific Information: n/a Health/Prescription Coverage: Primary Insurance: [place] Payor[place] / Plan: [place] / Product Type: *No Product type* / Secondary Insurance: N/A ; Prescription Coverage: Yes Preferred Pharmacy: [facility] [address] [place] [id number] [place] [address] [place] [id number] [facility] - [place], [place] - [address] [facility] [address] [id number] - [facility], [place] - [address] [facility] [address] [place] [address] Status: Patient is a : No Primary Care Provider listed: Lorna Bal APRN [phone] Patient/Caregiver Goals of Treatment: return home with caregivers Potential Needs for Transition of Care: none Agency Referrals: Not Applicable Transportation: no concerns Transportation Anticipated: family or friend will provide Concerns to be Addressed: no discharge needs identified Assessment: Patient is admitted to medicine service for abscess. Plan: TBD watch for needs based on hospital course A member of the Care Management team will continue to monitor progress, follow for continuity of care and assist with transition of care planning. Yas John RN, BSN, LALA Coater Helper Pager [phone] * Plan of Care - Osman Bowen RN - 07/24/2022 6:26 PM EDT OUTCOME EVALUATION NOTE: OUTCOME SUMMARY: Patient brightens with approach, on room air, home care music therapist at bedside, IR placed 2 carmella drains to bulb suction. No s/s of pain. Safety maintained. PLAN MOVING FORWARD: D/C planning Monitor drains I&O's Awaiting culture results Monitor for s/s of infection INDIVIDUALIZED FALL PREVENTION INTERVENTIONS: Patient-specific fall risk factors per assessment: [current deficits Generalized weakness, nonverbal, pain, contractures Assistance [level of assistance required for transfers and ambulation]: 2A with lift Supervision [direct monitoring required during toileting and ADLs]: hands on Surveillance [continuous indirect monitoring]: Purposeful rounding, call fay in reach, caregiver at the bedside Patient-specific fall prevention interventions for sensory deficits provided, if applicable: [X] Yes CARE PLAN GOAL OUTCOME EVALUATION: * Brief Op Note - Lucho Burciaga MD - 07/24/2022 4:07 PM EDT INTERVENTIONAL RADIOLOGY BRIEF PROCEDURE NOTE Patient Name: Tana Cavazos : 1995 Case Date: 07/24/2022 Operators: Attending: Anurag Kumar MD Resident/Fellow/Student: Lucho Burciaga MD Post-operative diagnosis/Indication: perivertebral abscesses Name of Procedure Performed: Planned procedure: Drain placements - L2/3 collection and collection about the sacroiliac joint screw Brief description of the procedure: ?? Ultrasound and fluoroscopic guided localization of SI joint and L2/3 collections. ?? Placement of 10fr SI and 8fr L2/3 pigtail drains under image guidance. ?? Samples collected for cultures ordered by primary team. Findings of the procedure: ?? Drains placed in 10fr SI and 8fr L2/3 abscesses EBL: <10 mL Specimens: collected for cultures ordered by primary team. Complications: No immediate Plan/Disposition: Stable, to recovery FULL PROCEDURE NOTE TO FOLLOW IN IMAGE REPORT * Plan of Care - Janna Dennison RN - 07/24/2022 4:41 AM EDT OUTCOME EVALUATION NOTE: OUTCOME SUMMARY: Bps soft overnight, 87/57 up to 90s/50s, MD aware, continuous LR fluids increased from 50mL/hr to 100mL/hr. Pt nonverbal, marya orientation. No s/sx of pain. Reddened areas on back, no drainage observed. NPO at 0000 for IR drainage 07/24. Caregiver at the bedside, attentive to patient's needs. Restingin bed between care, safety maintained. PLAN MOVING FORWARD: D/c planning Mx VS, Labs IR drainage Ortho recs INDIVIDUALIZED FALL PREVENTION INTERVENTIONS: Patient-specific fall risk factors per assessment: [current deficits]: Generalized weakness, nonverbal, pain, contractures Assistance [level of assistance required for transfers and ambulation]: 2A w/ lift Supervision [direct monitoring required during toileting and ADLs]: Hands on Surveillance [continuous indirect monitoring]: Purposeful rounding, call fay in reach, caregiver at the bedside Patient-specific fall prevention interventions for sensory deficits provided, if applicable: CARE PLAN GOAL OUTCOME EVALUATION: * Consult Note - Sergey Keane MD - 07/23/2022 12:34 PM EDT Images from the original note were not included. DEPARTMENT OF INFECTIOUS DISEASE & [facility] INFECTIOUS DISEASE CONSULT NOTE Patient Name: Tana Cavazos PCP: Lorna Bal APRN PCP phone #: [phone] Reason for Admission: Lumbar subcutaneous abscesses with markers c/f deep infection Reason for ID Consult: Draining wounds, on levofloxacin History of Present Illness: 27 year-old female with a PMH of TBI with spastic quadriplegia, CP, scoliosis, s/p PSF in 2008 and prior bilateral Girdlestone in 2010 with complex spinal history as follows: recently admitted to on 06/24 after her mother noticed she had increasing redness and tenderness over the midline surgicalscar on the back seen in OSH concerns of cellulitis, she was on cephalexin--> cefepime + vancomyc in --> cefpodoxime despite ABX symptoms persited. CT performed on 06/24 showed two irregular collections within the posterior subcutaneous fat of the lumbar region. On 06/25 she underwent IR guided drainage with findings of old blood from the superior collection, while the more inferior collection drained purulent material, and a drain was placed. Cultures with no growth which was not entirely surprising since she was on antibiotics when specimen was collected. There was a possibility that her collection was sterile in nature In absence of identified pathogen or ongoing SIRS we decided initially to monitor off ABX, with active surveillance of acute phase reactants and possible repeating imaging. Drain was removed by IR. Patient was slotted for discharge when she developed fever and hypotension prompting initiation of ABX and repeating lumbar imaging showing loculated collections and a gluteal abscess. Unfortunately given the urgency of the situation, Cefepime and vancomycin were initiated before drainage was obtain.Patient underwent IR drainage of collection with minimal drainage, no culture were obtained . BCx returned positive for E coli. Unclear source, UA was negative. Only possible source GI translocation f rom Proctitis noted on CT abdomen . Decision was made to treat for 6 weeks with ABX, to cover the bacteremia and the spinal collection and gluteal abscess. Patient was discharged with close monitoring and ID follow up. On 07/12 Patients mother noted a new redness area and a bump in the spine. Advised close monitoring of the redness/bump (pictures in the chert). Since the paraspinal drain was removed 07/08, there may be reaccumulation of fluid. Discussed emergency s/s including fevers, confusion, acting sick. Telephone encounter with ID on 07/15 and 07/17. At that time The red spot 'popped' and drained pus and the redness was resolving. CRP up from 16 -> 54. Decision was to continue levofloxac in treating as if Tana has osteodiscitis. Unfortunately with increased redness and purulent drainage from the same area she presented to the ED today. Upon arrival to [facility] she was found afebrile, hemodynamically stable. Normal WBC, ESR 119, CRP 48. CT of the spine showed The right-sided iliac screw is disconnected and does not articulate with the lumbar spinal, Irregular soft tissue density collection in the subcutaneous fat about the disconnected right iliac screw and adjacent spinal meredith Hardware, Stable T12/L1 posterior subcutaneous soft tissue collection, Abnormal soft tissue fullness along left- sided lamina and L2 and L3. I&D at bedside . Blood cultures were obtained. Patient was started on ceftriaxone and ID is consulted for further recommendations Antimicrobial assessment YES NO Prior ABX use in the past 3 months [x] [] Prior hospital admission in the past 3 months [x] [] ABX allergies [] [x] Review of Systems: Unable to obtain due to patient clinical status Antimicrobials: Ceftriaxone 07/22 Vitals: Last value Range last 24 hrs Temperature Temp: 35.6 ??C (96 ??F) Temp: [35.6 ??C (96 ??F)] Heart Rate Heart Rate: 88 Heart Rate: [88] Blood Pressure BP: (!) 84/65 BP: (84-110)/(61-81) Respiratory Rate Resp: 20 Resp: [16-20] SpO2 SpO2: 98 % SpO2: [97 %-100 %] Examination: GENERAL APPEARANCE: In no acute distress. VITAL SIGNS: Reviewed HEENT: Oropharynx is clear. Mouth no lesions. NECK: No lymphadenopathy or tenderness. LUNGS: Breath sounds are equal and clear bilaterally. No wheezes, rhonchi, or rales. HEART: Regular rate and rhythm with normal S1 and S2. No murmurs ABDOMEN: Soft. No mass, tenderness, guarding, or rebound. No organomegaly or hernia. Bowel sounds are present. SPINE: Lumbar spine covered, area of erythema, point of drainage, with no active secreetion EXTREMITIES: No cyanosis, clubbing, or edema. NEUROLOGIC: Awake, alert, SKIN: No lesions, nodules or rashes are noted Laboratory: CBC: Recent Labs 07/23/22 0300 07/22/22191107/09/22 0355 WBC 6.2 5.6 6.8 HGB 10.5* 11.2* 8.8* PLATELET 364* 449* 386* Chemistry: Recent Labs 07/23/22 0300 07/22/22191107/09/22 0355 NA 141 139 139 K 3.6 3.8 4.2 CL 105 103 104 CO2 BUN 9 10 8 CREATININE 0.31* 0.34* 0.26* GLUCOSE 101 99 101 Recent Labs 07/23/22 0300 07/22/22191107/09/22 0355 07/02/22 0615 07/01/22 1814 06/30/22 0429 06/29/22 0558 06/28/22 0538 CALCIUM 8.9 9.4 9.1 < > -- < > 9.0 9.1 MAGNESIUM -- -- -- -- 0.74 -- 0.88 0.78 < > = values in this interval not displayed. LFT's: Recent Labs 07/07/22 0341 07/06/22 0621 07/05/22 0531 BILITOT <0.2* 0.3 0.4 BILIDIR <0.1 0.1 0.1 ALBUMIN 2.9* 3.2 3.1* ALKPHOS 177* 199* 209* ALT 42* 57* 74* AST 20 25 39* Microbiology Imaging Studies: Reviewed by me CT lumbar spine 07/22 IMPRESSION 1. The soft tissue collection about the dislocated right iliac screw is mildly larger. 2. The dorsal subcutaneous collection at T12 not significantly changed. 3. The dorsal subcutaneous collection at L3 which is associated with soft tissue fullness along the left L2 and L3 lamina is larger. 4. Ultrasound may be helpful for further evaluation of these collections. Diagnosis: Spinal collections Hx of E coli bacteremia ( resolved) Summary 27 year-old female with a PMH of TBI with spastic quadriplegia, CP, scoliosis, s/p PSF in 2008 and prior bilateral Girdlestone in 2010 recently admitted to on 06/24 for evaluation of increasing redness and tenderness over the midline surgical scar and failing courses of ABX at OSH. During that admission a CT performed on 06/24 showed two irregular collections within the posterior lumbar region s/p IR guided drainage with findings of old blood from the superior collection, inferior collection drained purulent material, and a drain was placed. Cultures with no growth. In absence of identified pathogen and SIRS she was monitor off ABX. Then she developed fever and hypotension, repeating lumbar CT showed loculated collections and a gluteal abscess. Patient underwent new IR drainage, with minimal drainage, no culture were obtained and drain kept in place . BCx returned positive for E coli. possible source proctitis noted on CT abdomen . Decision was made to treat for 6 weeks with ABX, to cover the bacteremia and the spinal collection and gluteal abscess. Patient was discharged with close monitoring and ID follow up. Eventually her drain was removed on 07/08. Unfortunately she developedincreased redness and purulent drainage from the same area she presented returned to [facility] on 07/22, a repeated CT of the lumbar spine showed multiple spinal and paraspinal collections. Very complex peace e. It is unclear the etiology of these collections. The fact that patient has failed multiple timesABXs and drain placement is clear indication that there is inadequate source control, and a surgical approach should be consider. At this time per ID perspective, since she is hemodynamically stable,with no clinical evidence of SIRS and cultures negative will recommend continue treatment with levofloxacin. Orthopedic surgery evaluation is pending to decide future surgical plans. Decision of duration and further ABX will be based on culture data and plans for source control Recommendations: -Continue levofloxacin 750 mg PO daily - Please check QTc given prior prolongation to >500 ms and recent prolonged fluoroquinolone use -Agree with surgical consultation to discuss role of washing out these collections, as she has failed IR drainage -Daily monitoring of CBC and temperature curve -Repeat blood cultures if temperature greater than 101.5 -Monitor for toxicity of PO levofloxacin by checking at least weekly CBC w/ diff, CMP Patient updated, and verbalized understanding. Thank you for allowing us to participate in the care of this patient. We will continue to follow along with you Case discussed with (attending addendum to follow) Sergey Doan MD Infectious Disease Fellow 07/23/2022 Associated attestation - Hollie Ambriz MD - 07/23/2022 7:00 PM EDT ID Attending Attestation I have seen and examined the patient and reviewed the fellow's above history, and I agree with the details as written. The assessment and plan were formulated in discussion with me and I agree with them as documented, with the following additions/modifications: Patient was recently admitted to [facility] in early June 2022, at which point she was noted to have 2-3subcutaneous lumbar collections. It appears the more inferior collection is around L3-L4 and extends to encompass a R sided gluteal component that surrounding a dislocated screw. The more superior collection appears to be around T12. During that admission, she had two attempts at IR drain placementinto the lower collection, though it appears that output was minimal on both occasions, and the drain was removed after a couple of days. Cxs obtained from these drainage procedures did not reveal growth of any organisms, however, may have been sterilized due to antecedent receipt of antibiotics. She did have an episode of fever + hypotension during this admission, at which point she was noted tohave E coli bacteremia, though it was unclear if the source of bacteremia was due to these collections. Ultimately, the decision was made to discharge the patient with 6 weeks of levofloxacin, given concern for hardware involvement of this infection. After discharge, she developed a pimple over the site of a previous drain, which then popped revealing output of purulent material. She was re-admitted to [facility] on 07/22 for ongoing management, at which point a repeat CT scan showed that the lower L3-L4 and R gluteal collections had grown in size. I am concerned that this progressive process represents a lack of source control, rather than antibiotic failure, and would strongly suggest consideration of surgical washout, at which point it would also be beneficial to remove the loose screw in order to improve the likelihood of eradication of this infection. For now, it is OK to continue PO levofloxacin. We did consider the role of holding this antibiotic to improve the yield of Cxs. However, she has already been on antibiotics for weeks, and holding for 1-2 days is unlikely to provide much additional yield in terms of ability to grow organisms on Cx. I do note that she had a prolonged QTc to >500 ms on an EKG from her last admission.Though this had improved on repeat, it would be prudent to repeat an EKG now, particularly as she has been on levofloxacin for some time. We will continue to follow. I spent a total of 80 minutes on the date of service on the icdv-da-nurs encounter, chart review, clinical decision making, documentation, and coordination of care. Hollie Ambriz MD Staff Physician in Infectious Diseases * Consult Note - Mal Menchaca MD - 07/23/2022 12:28 PM EDT Images from the original note were not included. ORTHOPAEDIC SURGERY SPINE CONSULT NOTE ATTENDING: Dr. Christy Cavazos is a 27 y.o. female who presents to see us in consultation today at the request of Ernesto Willingham MD. CHIEF COMPLAINT: lumbar erythema, fluid collection Time Paged: 12:00 PM Time Seen: 12:30 PM HPI: Tanajohn Cavazos is a 27 y.o. female with history of CP/spastic quadriplegia and history of spinal fusion for scoliosis (Dr. Oliver 2008), bilateral Girdlestone procedures, removal of a baclofen pumpin 2014 complicated by infection requiring multiple washouts and prolonged antibiotics since resolved, who presents with worsening lumbar erythema and drainage. Patient had an admission to the hospital from 06/24 and 07/09 for T12-L2 fluid collection. On previous presentation on 06/24 CT demonstrated 2 fluid collections in the subcutaneous tissues of the lumbar spine. At this time the patient exhibited elevated inflammatory markers. Was unclear whether these collections communicated with the implanted hardware. IR aspiration demonstrated that the superior collection was consistent with a chronichematoma in the inferior collection demonstrated gross purulence. Drain was placed in this collection. Gram stain of the fluid at the inferior collection was negative and there was no growth on culture from this collection. Blood cultures on 07/03 demonstrated E. Coli., however these resolved by 07/07. She presents today afebrile with a WBC of 5.6 with CRP of 48.9. ESR of > 119. The patient presents today at the request of [facility] for increased purulent drainage from her superior collection site. The patient is non-verbal. Her caregiver at bedside noted no fevers or changes in demeanor. She notedthat the drainage began last Thursday, but has since had minimal output. FOCUSED REVIEW OF SYSTEMS: Unable to assess as patient is non-verbal Active Hospital Problems Diagnosis ??? Abscess Resolved Hospital Problems No resolved problems to display. Active Non-Hospital Problems Diagnosis ??? 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 ??? Fracture of femur, distal ??? Contracture of elbow ??? Right leg pain ??? Presence of intrathecal baclofen pump ??? Spasticity ??? Scoliosis ??? Edema leg ??? Acquired dysplasia of hip, bilateral ??? 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 SOCIAL HISTORY: Social History Tobacco Use Smoking Status Never Smokeless Tobacco Never Tobacco Comments NO SMOKERS IN THE HOME Social History Substance and Sexual Activity Alcohol Use No MEDICATIONS: ??? lactated ringers infusion ??? [START ON 07/24/2022] levoFLOXacin (Levaquin) tablet 750 mg ??? baclofen (Lioresal) tablet 10 mg ??? polyethylene glycoL (Miralax) packet 17 g ??? senna (Senokot) tablet 17.2 mg ??? sodium chloride 0.9 % (flush) (BD PosiFlush Normal Saline 0.9) flush 5 mL ??? sodium chloride 0.9 % (flush) (BD PosiFlush Normal Saline 0.9) flush 5-20 mL ??? lidocaine (Xylocaine) 1% (10 mg/mL) injection 3 mg ??? senna-docusate (Pericolace) 8.6-50 mg per tablet 2 tablet ??? enoxaparin (Lovenox) (30 mg/0.3 mL) subcutaneous injection 30 mg ??? acetaminophen (Tylenol) tablet 650 mg ??? polyethylene glycoL (Miralax) 17 gram oral powder packet ??? levoFLOXacin (Levaquin) 750 mg tablet ??? senna (Senokot) 8.6 mg tablet ??? nystatin (MYCOSTATIN) 100,000 unit/gram Powder ??? baclofen (Lioresal) 10 mg tablet ??? multivitamin (THERAGRAN) Tablet ??? lactated Ringers OBJECTIVE: @VITALSRANGE@ Intake/Output Summary (Last 24 hours) at 07/23/2022 1231 Last data filed at 07/23/2022 0031 Gross per 24 hour Intake -- Output 150 ml Net -150 ml There is no height or weight on file to calculate BMI. PHYSICAL EXAM: Gen: NAD, awake, alert, appropriate CV: Regular rate and rhythm Pulm: Non-labored breathing Focused Spine Exam: Neck: No apparent pain with flexion or extension. No cervical spine bony tenderness, crepitance, orstepoff. ?? Back: Two erythematous fluctuant sites in the lumbar region/sacral. Tenderness to palpation. Expressed drainage from superior site on exam. Non-tender at other regions of the spine. Significant contractures and stiffness of bilateral shoulders and elbows. Significant stiffness of bilateral hips and knees. Ankles hyper dorsiflexed. Legs with significant external rotation. Motor: Patient has spastic quadriplegia. No motor function of right upper and bilateral lower extremities.Patient demonstrates purposeful gross movements of left hand and is able to grasp on command. ?? Sensory: Appears to respond to light touch stimulus in all four extremities but does not provide reliable sensory exam. ?? Reflexes: ?? R L Biceps Not tested Not tested Franz Not tested Not tested Patellar Not tested Not tested Ankle jerk Not tested Not tested Plantar Not tested Not tested Clonus 2 beats 2 beats ? Sacral Reflexes: Not tested LABS: Last 3 wbc, hgb, hct plt Recent Labs 07/23/22 0300 07/22/22 1912 07/09/22 0355 WBC 6.2 5.6 6.8 HGB 10.5* 11.2* 8.8* HCT 32.7* 36.2 28.1* PLATELET 364* 449* 386* Last 3 Lytes Recent Labs 07/23/22 0300 07/22/22191107/09/22 0355 NA 141 139 139 K 3.6 3.8 4.2 CL 105 103 104 CO2 BUN 9 10 8 CREATININE 0.31* 0.34* 0.26* Last CRP, SEDRATE Recent Labs 07/22/221911 CRP 48.9* SEDRATE >119* IMAGING: CT Lumbar spine w/ contrast 07/23/22: Increased soft tissue collection surrounding right illiac screw . Dorsal T12 subcutaneous collection unchanged. Increased subcutaneous soft tissue collection along left L2 and L3 lamina. ASSESSMENT/RECOMMENDATIONS: 27 y.o. female who presents with purulence and erythema over her lumbarabscess. Plan to attempt initial IR guided drainage and culture directed antibiotics. Monitor for progression of symptoms. - Activity- AAT - DVT prophylaxis- per primary - Antibiotics: Per primary/ID - Diet - No orthopaedic restrictions - Discuss with Dr. Christy Menchaca MD Pager: [phone] 07/23/22 12:31 PM Future Appointments Date Time Provider Department Center 07/31/2022 1:00 PM Lilli Joy APRN [facility] ID 5C [facility] 08/13/2022 11:30 AM Sergey Keane MD [facility] ID [facility]C [facility] Associated attestation - Joe Harrison MD - 07/25/2022 12:47 PM EDT Recommend IR drainage. Try to avoid surgery. However, may need debridement and VAC placement. Joe Harrison MD [facility] - Department of Orthopaedic Surgery [employer] - Department of Orthopedic Surgery / [employer] Pharmacy Technician Trainee Professor - [facility] 07/25/2022 * Consult Note - Oriana Rondon [facility] - 07/23/2022 1:09 AM EDT TelePharmacy Home Medication List Update for Medication Reconciliation 07/23/22 1:09 AM Tana Cavazos 1995 Allergies Allergen Reactions ??? Fluoxetine Other (See Comments) HIVES, HEART RACES ??? Tegaderm [Transparent Dressings] Itching and Dermatitis Please use [id number] ??? Penicillins ??? Person Interviewed: adult floor care technician ??? Quality of Interview/accuracy of medication list: good ??? Sources used to compile medication list: [x] Epic medication list [x] SureScripts [] PCP/Specialist list [] Retail pharmacy [] Patient list [] MAR [] Other ??? Changes made to home medication list: o Additions: - None o Deletions: - None o Changes: - None ??? Additional Notes: Updated medication list with information provided by patients adult floor care technician, Fannie Villarreal. Fannie reports also using Interdry sheets BID as a dressing change for the patient. ??? Recommended changes: None The home medication list is now updated to the best of my knowledge and is ready to be reconciled by the provider. Please contact the TelePharmacy Medication Reconciliation Pharmacist at for any questions. Oriana Rondon RPH documented in this encounter Plan of Treatment Upcoming Encounters Date Type Department Care Team (Late st Contact Info) Description 11/19/2023 2:30 PM EDT TH Visit (TeleHealth) [place] [address] Lilli Joy [place] [facility] [place] [address] 11/30/2023 12:50 PM EDT [place] [address] 12/03/2023 12:30 PM EDT Office [place] [address] Hollie Ambriz MD [facility] [place] [address] documented as of this encounter Procedures Procedure Name Priority Date/Time Associated Diagnosis Comments HEMOGRAM Routine 08/01/2022 5:47 AM EDT DIFFERENTIAL, AUTOMATED Routine 08/01/2022 5:47 AM EDT HC CBC,PLT & AUTO DIFF Routine 08/01/2022 5:47 AM EDT BLOOD CULTURE Routine 07/31/2022 1:09 PM EDT HC BLOOD CULTURE- STAT 07/31/2022 1:0 4 PM EDT HC C-REACTIVE PROTEIN Routine 07/31/2022 4:53 AM EDT HEMOGRAM Routine 07/31/2022 4:53 AM EDT DIFFERENTIAL, AUTOMATED Routine 07/31/2022 4:53 AM EDT HC VENIPUNCTURE Routine 07/31/2022 4:53 AM EDT BASIC METABOLIC PANEL (NON-FASTING) Routine 07/31/2022 4:53 AM EDT HEMOGRAM Routine 07/30/2022 5:14 AM EDT DIFFERENTIAL, AUTOMATED Routine 07/30/2022 5:14 AM EDT HC BLOOD CULTURE- Routine 07/30/2022 5:1 4 AM EDT HC VENIPUNCTURE Routine 07/30/2022 5:14 AM EDT HC C-REACTIVE PROTEIN Routine 07/28/2022 11:27 PM EDT HEMOGRAM STAT 07/28/2022 11:27 PM EDT DIFFERENTIAL, AUTOMATED STAT 07/28/2022 11:27 PM EDT HC L-LACTATE STAT 07/28/2022 11:27 PM EDT HC BLOOD CULTURE- STAT 07/28/2022 11: 27 PM EDT HC VENIPUNCTURE STAT 07/28/2022 11:27 PM EDT PHOSPHORUS STAT 07/28/2022 11:27 PM EDT MAGNESIUM STAT 07/28/2022 11:27 PM EDT HC LIPASE STAT 07/28/2022 11:27 PM EDT COMPREHENSIVE METABOLIC PANEL (NON-FASTING) STAT 07/28/2022 11:27 PM EDT URINALYSIS WITH REFLEX CULTURE Routine 07/28/2022 11:20 PM EDT HC VENIPUNCTURE STAT 07/28/2022 11:11 PM EDT XR CHEST ONE VIEW Routine 07/28/2022 8:1 1 PM EDT RAPID COVID-19 PCR ([facility]) Routine 07/28/2022 8:01 PM EDT RESPIRATORY PANEL PCR Routine 07/28/2022 8:[address] LUMBAR SPINE WITH CONTRAST Routine 07/28/2022 11:29 AM EDT HC C-REACTIVE PROTEIN Routine 07/28/2022 5:02 AM EDT HEMOGRAM Routine 07/28/2022 5:02 AM EDT DIFFERENTIAL, AUTOMATED Routine 07/28/2022 5:02 AM EDT HC CBC,PLT & AUTO DIFF Routine 07/28/2022 5:02 AM EDT BASIC METABOLIC PANEL (NON-FASTING) Routine 07/28/2022 5:02 AM EDT HC C-REACTIVE PROTEIN Routine 07/27/2022 2:45 AM EDT HEMOGRAM Routine 07/27/2022 2:45 AM EDT DIFFERENTIAL, AUTOMATED Routine 07/27/2022 2:45 AM EDT HC L-LACTATE Routine 07/27/2022 2:45 AM EDT HC ESR-SEDIMENTATION RATE, BLOOD Routine 07/27/2022 2:45 AM EDT HC CBC,PLT & AUTO DIFF Routine 07/27/2022 2:45 AM EDT HC MAGNESIUM, SERUM Routine 07/27/2022 2 :45 AM EDT BASIC METABOLIC PANEL (NON-FASTING) Routine 07/27/2022 2:45 AM EDT HC C-REACTIVE PROTEIN Routine 07/26/2022 4:46 AM EDT HEMOGRAM Routine 07/26/2022 4:46 AM EDT DIFFERENTIAL, AUTOMATED Routine 07/26/2022 4:46 AM EDT HC ESR-SEDIMENTATION RATE, BLOOD Routine 07/26/2022 4:46 AM EDT HC VENIPUNCTURE Routine 07/26/2022 4:46 AM EDT BASIC METABOLIC PANEL (NON-FASTING) Routine 07/26/2022 4:46 AM EDT EKG 12-LEAD Routine 07/25/2022 12:42 PM EDT QT prolongation HEMOGRAM Routine 07/25/2022 4:37 AM EDT DIFFERENTIAL, AUTOMATED Routine 07/25/2022 4:37 AM EDT HC VENIPUNCTURE Routine 07/25/2022 4:37 AM EDT BASIC METABOLIC PANEL (NON-FASTING) Routine 07/25/2022 4:37 AM EDT IR ALL DRAINAGE PROCEDURES Routine 07/24/2022 4:02 PM EDT ANAEROBIC CULTURE Routine 07/24/2022 3:4 7 PM EDT HC CULTURE ANAEROBE PRESUMPTIVE Routine 07/24/2022 3:47 PM EDT HC BODY FLUID CRYSTALS Routine 07/24/2022 3:47 PM EDT HC WOUND/ABSCESS CX Routine 07/24/2022 3 :47 PM EDT HC BODY FLUID CELL COUNT Routine 07/24/2022 3:47 PM EDT ANAEROBIC CULTURE Routine 07/24/2022 3:2 2 PM EDT HC BODY FLUID CULTURE Routine 07/24/2022 3:22 PM EDT AFB CULTURE Routine 07/24/2022 3:22 PM EDT HC BODY FLUID CRYSTALS Routine 07/24/2022 3:22 PM EDT FUNGAL STAIN Routine 07/24/2022 3:22 PM EDT BODY FLUID CULTURE, AEROBIC Routine 07/24/2022 3:22 PM EDT FUNGUS CULTURE Routine 07/24/2022 3:22 PM EDT HC BODY FLUID CELL COUNT Routine 07/24/2022 3:22 PM EDT HEMOGRAM Routine 07/24/2022 5:25 AM EDT DIFFERENTIAL, AUTOMATED Routine 07/24/2022 5:25 AM EDT HC CBC,PLT & AUTO DIFF Routine 07/24/2022 5:25 AM EDT BASIC METABOLIC PANEL (NON-FASTING) Routine 07/24/2022 5:25 AM EDT HEMOGRAM Routine 07/23/2022 3:00 AM EDT DIFFERENTIAL, AUTOMATED Routine 07/23/2022 3:00 AM EDT HC CBC,PLT & AUTO DIFF Routine 07/23/2022 3:00 AM EDT BASIC METABOLIC PANEL (NON-FASTING) Routine 07/23/2022 3:00 AM EDT BLOOD CULTURE Routine 07/22/2022 10:47 PM EDT ANAEROBIC CULTURE STAT 07/22/2022 9:3 0 PM EDT HC BODY FLUID CULTURE STAT 07/22/2022 9:30 PM EDT BODY FLUID CULTURE, AEROBIC STAT 07/22/2022 9:30 PM EDT HC BODY FLUID CELL COUNT STAT 07/22/2022 9:30 PM EDT HC BLOOD CULTURE- STAT 07/22/2022 9:[address] LUMBAR SPINE WITH CONTRAST STAT 07/22/2022 7:25 PM EDT HC C-REACTIVE PROTEIN STAT 07/22/2022 7:12 PM EDT HEMOGRAM STAT 07/22/2022 7:12 PM EDT DIFFERENTIAL, AUTOMATED STAT 07/22/2022 7:12 PM EDT HC ESR-SEDIMENTATION RATE, BLOOD STAT 07/22/2022 7:12 PM EDT HC CBC,PLT & AUTO DIFF STAT 07/22/2022 7:12 PM EDT BASIC METABOLIC PANEL (NON-FASTING) STAT 07/22/2022 7:12 PM EDT documented in this encounter Results * IR [...] within Anurag Kumar MD IMG IR ORDERABLES * Differential, Automated (08/01/2022 5:47 AM EDT) Neutrophils % 48.3 % [facility] Neutr Abs (ANC) 2.57 1.70 - 6.10 x10(3)/[facility] Lymphocytes % 42.1 % [facility] Lymphocytes Abs 2.2 0.9 - 3.2 x10(3)/[facility] Monocytes % 6.4 % [facility] Monocyte Abs 0.3 0.3 - 0.9 x10(3)/[facility] Eosinophils % 2.6 % [facility] Eosinophils Abs 0.1 0.0 - 0.4 x10(3)/[facility] Basophils % 0.4 % [facility] Basophils Abs 0.0 0.0 - 0.1 x10(3)/[facility] Immature Gran % 0.20 % [facility] Comment: Immature granulocytes(IG's)percentage and absolute count will include metamyelocytes, myelocytes, and promyelocytes. Blood smears from CBCs yielding IG's will be scanned manually for concordance. If this scan disagrees with the automated IG or if promyelocytes are noted, a manual differential will be performed. Debora Gran Abs 0.01 0.00 - 0.04 x10(3)/[facility] Blood 08/01/2022 5:47 AM EDT 08/01/2022 6:03 AM EDT Narrative Resulting Agency Comment Spec In Lab Jamshid Collins MD HEMATOLOGY ORDERABLE S [facility] [place] [address] * (ABNORMAL) Hemogram (08/01/2022 5:47 AM EDT) WBC 5.3 4.0 - 9.5 x10(3)/[facility] RBC 3.99(L) 4.00 - 5.21 x10(6)/[facility] Hemoglobin 9.9(L) 11.7 - 15.5 g/dL [facility] Hematocrit 32.2(L) 35.7 - 45.8 % [facility] MCV 80.7(L) 82.6 - 94.4 [facility] MCH 24.8(L) 27.1 - 32.[address] [facility] MCHC 30.7(L) 31.7 - 35.0 g/dL [facility] Platelets 329 145 - 357 x10(3)/[facility] RDWSD 53.1(H) 37.0 - 46.0 [facility] RDWCV 18.1(H) 11.5 - 14.1 % [facility] MPV 9.3 7.6 - 12.[address] [facility] nRBC % Auto 0.0 % [facility] nRBC Abs Auto 0.000 0.000 - 0.000 x10(3)/mcL [facility] Blood 08/01/2022 5:47 AM EDT 08/01/2022 6:03 AM EDT Narrative Resulting Agency Comment Spec In Lab Jamshid Collins MD HEMATOLOGY ORDERABLE S [facility] [place] [address] * Blood culture (07/31/2022 1:09 PM EDT) Blood Culture No growth at [address] [facility] Blood STRUCTURE OF LEFT HAND / Unknown 07/31/2022 1:09 PM EDT 07/31/2022 2:09 PM EDT Comment:#2 Narrative Resulting Agency Comment Spec In Lab Jamshid Collins MD MICROBIOLOGY - BLOOD ORDERABLES Performing Organization Address [facility]/ZIP Co de Phone Number [facility] [place] [address] * Blood culture (07/31/2022 1:04 PM EDT) Blood Culture No growth at [address] [facility] Blood STRUCTURE OF RIGHT HAND / Unknown 07/31/2022 1:04 PM EDT 07/31/2022 2:09 PM EDT Comment:#1 Narrative Resulting Agency Comment Spec In Lab Jamshid Collins MD MICROBIOLOGY - BLOOD ORDERABLES Performing Organization Address City/[facility]/ZIP Co de Phone Number [facility] [place] [address] * Differential, Automated (07/31/2022 4:53 AM EDT) Neutrophils % 42.0 % [facility] Neutr Abs (ANC) 2.02 1.70 - 6.10 x10(3)/[facility] Lymphocytes % 47.6 % [facility] Lymphocytes Abs 2.3 0.9 - 3.2 x10(3)/[facility] Monocytes % 7.3 % [facility] Monocyte Abs 0.4 0.3 - 0.9 x10(3)/[facility] Eosinophils % 2.5 % [facility] Eosinophils Abs 0.1 0.0 - 0.4 x10(3)/[facility] Basophils % 0.4 % [facility] Basophils Abs 0.0 0.0 - 0.1 x10(3)/[facility] Immature Gran % 0.20 % [facility] Comment: Immature granulocytes(IG's)percentage and absolute count will include metamyelocytes, myelocytes, and promyelocytes. Blood smears from CBCs yielding IG's will be scanned manually for concordance. If this scan disagrees with the automated IG or if promyelocytes are noted, a manual differential will be performed. Debora Gran Abs 0.01 0.00 - 0.04 x10(3)/[facility] Blood 07/31/2022 4:53 AM EDT 07/31/2022 5:07 AM EDT Narrative Resulting Agency Comment Spec In Lab Jamshid Collins MD HEMATOLOGY ORDERABLE S [facility] [place] [address] * (ABNORMAL) Hemogram (07/31/2022 4:53 AM EDT) WBC 4.8 4.0 - 9.5 x10(3)/[facility] RBC 4.16 4.00 - 5.21 x10(6)/[facility] Hemoglobin 10.3(L) 11.7 - 15.5 g/dL [facility] Hematocrit 33.3(L) 35.7 - 45.8 % [facility] MCV 80.0(L) 82.6 - 94.[address] [facility] MCH 24.8(L) 27.1 - 32.[address] [facility] MCHC 30.9(L) 31.7 - 35.0 g/dL [facility] Platelets 302 145 - 357 x10(3)/[facility] RDWSD 53.7(H) 37.0 - 46.0 [facility] RDWCV 18.5(H) 11.5 - 14.1 % [facility] MPV 9.2 7.6 - 12.9 [facility] nRBC % Auto 0.0 % [facility] nRBC Abs Auto 0.000 0.000 - 0.000 x10(3)/[facility] Blood 07/31/2022 4:53 AM EDT 07/31/2022 5:07 AM EDT Narrative Resulting Agency Comment Spec In Lab Jamshid Collins MD HEMATOLOGY ORDERABLE S [facility] [place] [address] * (ABNORMAL) CRP, acute inflammation (07/31/2022 4:53 AM EDT) CRP 28.8(H) <=4.9 mg/L [facility] Comment:result rechecked-KS Blood 07/31/2022 4:53 AM EDT 07/31/2022 5:07 AM EDT Narrative Resulting Agency Comment Spec In Lab Jamshid Collins MD CHEMISTRY ORDERABLES [facility] [place] [address] * (ABNORMAL) Basic Metabolic Panel (non-fasting) (07/31/2022 4:53 AM EDT) Glucose Lvl 88 65 - 199 mg/dL [facility] Comment:Diabetes: >=200 mg/d L plus symptoms BUN 11 8 - 18 mg/dL [facility] Comment:result rechecked-KS Creatinine 0.29(L) 0.70 - 1.20 mg/dL [facility] Sodium 138 135 - 145 mmol/L [facility] Potassium 3.9 3.5 - 5.0 mmol/L [facility] Comment: Please note: ??Patients with WBC >100,000 may have falsely elevated Potassium levels. ??For accurate Potassium quantification in these patients send serum separator tube (gold top) for subsequent determinations. ??Contact the Clinical Chemistry Laboratory if there are any questions. Chloride 103 98 - 107 mmol/L [facility] CO2 24 22 - 31 mmol/L [facility] Anion Gap 11 5 - 15 mmol/L [facility] Calcium 9.3 8.5 - 10.5 mg/dL [facility] Estimated GFR 148 >=60 mL/min/1. 73 m?? [facility] Comment: This patient's estimated GFR [...] and symptoms in addition to eGFR. Blood 07/31/2022 4:53 AM EDT 07/31/2022 5:07 AM EDT Narrative Resulting Agency Comment Spec In Lab Jamshid Collins MD CHEMISTRY ORDERABLES [facility] [place] [address] * Differential, Automated (07/30/2022 5:14 AM EDT) Pathologist [facility] Neutrophils % 44.1 % [facility] Neutr Abs (ANC) 1.79 1.70 - 6.10 x10(3)/[facility] Lymphocytes % 42.9 % [facility] Lymphocytes Abs 1.7 0.9 - 3.2 x10(3)/[facility] Monocytes % 9.1 % [facility] Monocyte Abs 0.4 0.3 - 0.9 x10(3)/[facility] Eosinophils % 3.2 % [facility] Eosinophils Abs 0.1 0.0 - 0.4 x10(3)/[facility] Basophils % 0.5 % [facility] Basophils Abs 0.0 0.0 - 0.1 x10(3)/[facility] Immature Gran % 0.20 % [facility] Comment: Immature granulocytes(IG's)percentage and absolute count will include metamyelocytes, myelocytes, and promyelocytes. Blood smears from CBCs yielding IG's will be scanned manually for concordance. If this scan disagrees with the automated IG or if promyelocytes are noted, a manual differential will be performed. Debora Gran Abs 0.01 0.00 - 0.04 x10(3)/[facility] Blood 07/30/2022 5:14 AM EDT 07/30/2022 5:38 AM EDT Narrative Resulting Agency Comment Spec In Lab Jamshid Collins MD HEMATOLOGY ORDERABLE S [facility] [place] [address] * (ABNORMAL) Hemogram (07/30/2022 5:14 AM EDT) Pathologist [facility] WBC 4.1 4.0 - 9.5 x10(3)/[facility] RBC 4.02 4.00 - 5.21 x10(6)/[facility] Hemoglobin 9.9(L) 11.7 - 15.5 g/dL [facility] Hematocrit 31.7(L) 35.7 - 45.8 % [facility] MCV 78.9(L) 82.6 - 94.[address] [facility] MCH 24.6(L) 27.1 - 32.[address] [facility] MCHC 31.2(L) 31.7 - 35.0 g/dL [facility] Platelets 305 145 - 357 x10(3)/[facility] RDWSD 53.1(H) 37.0 - 46.[address] [facility] RDWCV 18.5(H) 11.5 - 14.1 % [facility] MPV 9.6 7.6 - 12.9 [facility] nRBC % Auto 0.0 % [facility] nRBC Abs Auto 0.000 0.000 - 0.000 x10(3)/[facility] Blood 07/30/2022 5:14 AM EDT 07/30/2022 5:38 AM EDT Narrative Resulting Agency Comment Spec In Lab Jamshid Collins MD HEMATOLOGY ORDERABLE S [facility] [place] [address] * Blood culture (07/30/2022 5:14 AM EDT) Blood Culture No growth at [address] [facility] Blood STRUCTURE OF LEFT HAND / Unknown 07/30/2022 5:14 AM EDT 07/30/2022 6:38 AM EDT Narrative Resulting Agency Comment Spec In Lab Yury Saavedra MD MICROBIOLOGY - BLOO D ORDERABLES [facility] [place] [address] * Phosphorus (07/28/2022 11:27 PM EDT) Pathologist [facility] Phosphorus 4.2 2.5 - 4.5 mg/dL [facility] Blood Venous Draw / Unknown 07/28/2022 11:27 PM EDT 07/28/2022 11:44 PM EDT Narrative Resulting Agency Comment Spec In Lab Shea Fox MD CHEMISTRY ORDERABLES Performing Organization Address City/[facility]/ZIP Co de Phone Number [facility] [place] [address] * Magnesium (07/28/2022 11:27 PM EDT) [facility] Magnesium 0.73 0.69 - 1.07 mmol/L [facility] Blood Venous Draw / Unknown 07/28/2022 11:27 PM EDT 07/28/2022 11:44 PM EDT Narrative Resulting Agency Comment Spec In Lab Shea Fox MD CHEMISTRY ORDERABLES Performing Organization Address City/[facility]/ZIP Co de Phone Number [facility] [place] [address] * Differential, Automated (07/28/2022 11:27 PM EDT) [facility] Neutrophils % 51.2 % [facility] Neutr Abs (ANC) 2.52 1.70 - 6.10 x10(3)/[facility] Lymphocytes % 37.3 % [facility] Lymphocytes Abs 1.8 0.9 - 3.2 x10(3)/[facility] Monocytes % 9.1 % [facility] Monocyte Abs 0.4 0.3 - 0.9 x10(3)/[facility] Eosinophils % 1.4 % [facility] Eosinophils Abs 0.1 0.0 - 0.4 x10(3)/[facility] Basophils % 0.6 % [facility] Basophils Abs 0.0 0.0 - 0.1 x10(3)/[facility] Immature Gran % 0.40 % [facility] Comment: Immature granulocytes(IG's)percentage and absolute count will include metamyelocytes, myelocytes, and promyelocytes. Blood smears from CBCs yielding IG's will be scanned manually for concordance. If this scan disagrees with the automated IG or if promyelocytes are noted, a manual differential will be performed. Debora Gran Abs 0.02 0.00 - 0.04 x10(3)/[facility] Blood 07/28/2022 11:2 7 PM EDT 07/28/2022 11:34 PM EDT Narrative Resulting Agency Comment Spec In Lab Shea Fox MD HEMATOLOGY ORDERABLE S Performing Organization Address City/State/[facility] Co de Phone Number [facility] [place] [address] * (ABNORMAL) Hemogram (07/28/2022 11:27 PM EDT) WBC 4.9 4.0 - 9.5 x10(3)/[facility] RBC 4.06 4.00 - 5.21 x10(6)/[facility] Hemoglobin 10.0(L) 11.7 - 15.5 g/dL [facility] Hematocrit 32.3(L) 35.7 - 45.8 % [facility] MCV 79.6(L) 82.6 - 94.[address] [facility] MCH 24.6(L) 27.1 - 32.[address] [facility] MCHC 31.0(L) 31.7 - 35.0 g/dL [facility] Platelets 303 145 - 357 x10(3)/[facility] RDWSD 53.3(H) 37.0 - 46.[address] [facility] RDWCV 18.5(H) 11.5 - 14.1 % [facility] MPV 9.2 7.6 - 12.9 [facility] nRBC % Auto 0.0 % [facility] nRBC Abs Auto 0.000 0.000 - 0.000 x10(3)/[facility] Blood 07/28/2022 11:2 7 PM EDT 07/28/2022 11:34 PM EDT Narrative Resulting Agency Comment Spec In Lab Shea Fox MD HEMATOLOGY ORDERABLE S [facility] [place] [address] * (ABNORMAL) Blood culture (07/28/2022 11:27 PM EDT) Blood Culture Pseudomonas oryzihabitans isolated Isolate saved. If future testing is required, contact the Microbiology Shop Foreman. (A) [facility] Gram Stain Aerobic Growth detected in aerobic bottle. Gram Negative Rods seen Results called to and read back by Guerita Quinonez RN ??07/30/22 02:02:27 (A) [facility] Organism Pseudomonas oryzihabitans(A) [facility] Organism Gram Negative Rods(A) [facility] Blood 07/28/2022 11:2 7 PM EDT 07/29/2022 12:17 AM EDT Comment:R hand, AER ONLY Narrative Resulting Agency Comment Spec In Lab Organism Antibiotic Method Susceptibility Pseudomonas oryzihabitans Amikacin MICROSCAN METHO D Sensitive Pseudomonas oryzihabitans Aztreonam MICROSCAN METHO D Resistant Pseudomonas oryzihabitans Cefepime MICROSCAN METHO D Sensitive Pseudomonas oryzihabitans Ceftazidime MICROSCAN METHO D Sensitive Pseudomonas oryzihabitans Ciprofloxacin MICROSCAN METH OD Sensitive Pseudomonas oryzihabitans Gentamicin MICROSCAN METHO D Sensitive Pseudomonas oryzihabitans Levofloxacin MICROSCAN METHO D Sensitive Pseudomonas oryzihabitans Meropenem MICROSCAN METHO D Sensitive Pseudomonas oryzihabitans Piperacillin/Tazobactam MICR OSCAN METHOD Sensitive Pseudomonas oryzihabitans Tobramycin MICROSCAN METHO D Sensitive Pseudomonas oryzihabitans Trimethoprim/Sulfa MICROSCAN METHOD Sensitive Shea Fox MD MICROBIOLOGY - BLOOD ORDERABLES Performing Organization Address City/[facility]/ZIP Co de Phone Number [facility] [place] [address] * Lactate, whole blood, send to lab ([facility]) (07/28/2022 11:27 PM EDT) Pathologist [facility] Lactate WB 1.7 0.5 - 2.2 mmol/L [facility] Blood 07/28/2022 11:2 7 PM EDT 07/28/2022 11:33 PM EDT Narrative Resulting Agency Comment Spec In Lab Shea Fox MD CHEMISTRY ORDERABLES Performing Organization Address [facility] Co de Phone Number [facility] [place] [address] * Lipase (07/28/2022 11:27 PM EDT) Pathologist [facility] Lipase 29 0 - 60 unit/L [facility] Blood 07/28/2022 11:2 7 PM EDT 07/28/2022 11:34 PM EDT Narrative Resulting Agency Comment Spec In Lab Shea Fox MD CHEMISTRY ORDERABLES Performing Organization Address [facility]/ZIP Co de Phone Number [facility] [place] [address] * (ABNORMAL) Comprehensive metabolic panel (non-fasting) (07/28/2022 11:27 PM EDT) Glucose Lvl 98 65 - 199 mg/dL [facility] Comment:Diabetes: >=200 mg/d L plus symptoms BUN 7(L) 8 - 18 mg/dL [facility] Creatinine 0.30(L) 0.70 - 1.20 mg/dL [facility] Sodium 138 135 - 145 mmol/L [facility] Potassium 3.9 3.5 - 5.0 mmol/L [facility] Comment: Please note: ??Patients with WBC >100,000 may have falsely elevated Potassium levels. ??For accurate Potassium quantification in these patients send serum separator tube (banner top) for subsequent determinations. ??Contact the Clinical Chemistry Laboratory if there are any questions. Chloride 102 98 - 107 mmol/L [facility] CO2 25 22 - 31 mmol/L [facility] Anion Gap 11 5 - 15 mmol/L [facility] Calcium 9.2 8.5 - 10.5 mg/dL [facility] Total Protein 7.3 6.1 - 8.0 g/dL [facility] Albumin 3.6 3.2 - 5.2 g/dL [facility] AST 35(H) 0 - 30 unit/L [facility] ALT 42(H) 0 - 30 unit/L [facility] Alk Phos 182(H) 35 - 105 unit/L [facility] Total Bilirubin 0.2 0.2 - 1.3 mg/dL [facility] Estimated GFR 147 >=60 mL/min/1. 73 m?? [facility] Comment: This patient's estimated GFR [...] and symptoms in addition to eGFR. Blood 07/28/2022 11:2 7 PM EDT 07/28/2022 11:34 PM EDT Narrative Resulting Agency Comment Spec In Lab Shea Fox MD CHEMISTRY ORDERABLES [facility] [place] [address] * (ABNORMAL) CRP, acute inflammation (07/28/2022 11:27 PM EDT) CRP 51.5(H) <=4.9 mg/L [facility] Blood 07/28/2022 11:2 7 PM EDT 07/28/2022 11:44 PM EDT Narrative Resulting Agency Comment Spec In Lab Jamshid Collins MD CHEMISTRY ORDERABLES Performing Organization Address [facility]/ZIP Co de Phone Number [facility] [place] [address] * Urinalysis with reflex Culture (07/28/2022 11:20 PM EDT) Glucose UA Negative Negative mg/dL [facility] Protein UA Negative Negative mg/dL [facility] Bilirubin UA Negative Negative mg/dL [facility] Comment: Clinical correlation required for positive Urine Bilirubin results as false positive may occur with some drugs and drug related products. If a false positive is suspected a serum total bilirubin should be considered if clinically indicated. Urobilinogen UA Normal Normal mg/dL M [facility] pH UA 7.5 5.0 - 8.0 [facility] Blood UA Negative Negative mg/dL [facility] Ketones UA Negative Negative mg/dL [facility] Nitrite UA Negative Negative [facility] Leukocytes UA Negative Negative mcL [facility] Appearance UA Clear Clear [facility] Spec Hundred UA 1.013 1.005 - 1.030 [facility] Color UA Yellow Yellow [facility] Culture Reflexed No [facility] Straight Catheter Urine 07/28/2022 11:20 PM EDT 07/29/2022 12:04 AM EDT Narrative Resulting Agency Comment Spec In Lab Shea Fox MD URINE ORDERABLES Performing Organization Address [facility] [place] [address] * Blood culture (07/28/2022 11:11 PM EDT) Blood Culture No growth at [address] [facility] Blood 07/28/2022 11:1 1 PM EDT 07/29/2022 12:17 AM EDT Comment:R hand Narrative Resulting Agency Comment Spec In Lab Shea Fox MD MICROBIOLOGY - BLOOD ORDERABLES Performing Organization Address [facility] de Phone Number [facility] [place] [address] * XR Chest One View (07/28/2022 8:11 PM EDT) Anatomical Region Laterality Modality Chest N/A Digital Radiogra phy Impressions 07/28/2022 8:32 PM EDT No appreciable airspace consolidation or effusions. Thank you for letting us participate in the care of this patient. ??If you are a health care provider and have any questions regarding this report, please contact the number below. ??For patients who have questions please contact the health ambulatory care that requested your imaging first. ? Narrative 07/28/2022 8:32 PM EDT EXAMINATION: XR CHEST ONE VIEW CLINICAL HISTORY: new cough and clinical change in nonverbal pt, c/f PNA TECHNIQUE: 1 view of the chest COMPARISON: Chest x-ray 07/02/2022 FINDINGS: No appreciable airspace consolidation. No pleural effusion or pneumothorax. Unchanged cardiomediastinal silhouette. No evidence of pulmonary edema. Thoracolumbar posterior spinal fusion hardware is redemonstrated. No acute osseous injury identified. Mild dextroconvex curvature of the lower thoracic spine. Procedure Note Faina Gallego MD - 07/28/2022 EXAMINATION: XR CHEST ONE VIEW CLINICAL HISTORY: new cough and clinical change in nonverbal pt, c/f PNA TECHNIQUE: 1 view of the chest COMPARISON: Chest x-ray 07/02/2022 FINDINGS: No appreciable airspace consolidation. No pleural effusion orpneumothorax. Unchanged cardiomediastinal silhouette. No evidence of pulmonary edema. Thoracolumbar posterior spinal fusion hardware is redemonstrated. Noacute osseous injury identified. Mild dextroconvex curvature of the lowerthoracic spine. IMPRESSION No appreciable airspace consolidation or effusions. Thank you for letting us participate in the care of this patient. If youare a health care provider and have any questions regarding this report,please contact the number below. For patients who have questions please contactthe health ambulatory care that requested your imaging first. Electronically signed by: FAINA GALLEGO MD, [facility]([phone]), at 07/28/2022 8:32 PM Jamshid Collins MD IMG DX ORDERABLES * (ABNORMAL) Respiratory Panel PCR (07/28/2022 8:01 PM EDT) Resp Panel Source [employer] Swab [facility] Resp Panel PCR Positive(A) Negative [facility] Comment: Respiratory Panels are performed on the QThru, using multiplexed PCR nucleic acid detection. ??Negative results do not preclude respiratory infection and should not be used as the sole basis for diagnosis, treatment or other management decisions. Adenovirus Not Detected Not Detected [facility] Coronavirus HKU1 Not Detected Not Detected [facility] Coronavirus NL63 Not Detected Not Detected [facility] Coronavirus 229E Not Detected Not Detected [facility] Coronavirus OC43 Not Detected Not Detected [facility] SARS-CoV-2 Not Detect[address] Not Detected [facility] Comment: Testing for SARS-CoV-2 (Severe acute respiratory syndrome coronavirus 2) to aid in the diagnosis of COVID-19 is performed using the BioHeartFlowe Respiratory Panel 2.1 (RIVS) as authorized by the FDA issued Emergency Use Authorization (EUA). This panel also tests for multiple other viral and bacterial pathogens. This assay is intended for In-vitro Diagnostic (IVD) use with nasopharyngeal swabs in viral transport media. The assay is performed based on the instructions for use and additional guidance provided by the FDA. Testing is performed in laboratories within the [facility], each of which is certified under the Clinical Laboratory Improvement Amendments of 1988 (CLIA), 42 U.S.C. section 263a, to perform high-complexity tests. Assay performance has been verified according to clinical laboratory regulatory requirements. The test result for SARS-CoV-2 provided above should be interpreted in combination with the clinical observation, patient history and epidemiological information. For testing of asymptomatic individuals, assay performance characteristics and clinical utility have not been evaluated. ??A result of Not Detected indicates that the viral RNA target is not present but does not preclude SARS-CoV-2 infection. False negative results may occur if a specimen is improperly collected, transported or handled; if amplification inhibitors are present; or if inadequate numbers of viral particles are present in the specimen. When a diagnostic test is negative, the possibility of a false negative result should be considered in the context of a patient's recent exposures and the presence of clinical signs and symptoms consistent with COVID-19. A result of Detected suggests a current or recent infection. Positive and negative predictive values for this test are dependent on disease prevalence. A result of Invalid indicates the inability to conclusively determine the presence or absence of SARS-CoV-2 RNA in the sample which can be due to a variety of factors. ??Collection of a new sample for repeat testing is recommended in the case of an invalid result. CDC COVID-19 criteria for testing on human specimens and clinical management guidance information are available at the CDC Coronavirus Disease 2019 (COVID-19) webpage under Information for Healthcare Professionals (https://www.cdc.gov/coronavirus/2019-ncov/hcp/index.html). Additional information about this and other EUA tests can be found in provider and patient fact sheets at the following FDA website: https://www.fda.gov/medical-devices/oabkapczcjm-fbpdach-6064-tpuno-13-avloatewr- use-a viwgphbosmaao-mtavhxp-ybuirtw/ehtbq-qynfjqrusei-rcfn Human Metapneumovirus Not Detected Not Detected [facility] Human Rhino/Enterovirus Detected(A) Not Detected [facility] Influenza A Not Detected Not Detected [facility] Influenza B Not Detected Not Detected [facility] Parainfluenza 1 Not Detected Not Detected [facility] Parainfluenza 2 Not Detect[address] Not Detected [facility] Parainfluenza 3 Not Detected Not Detected [facility] Parainfluenza 4 Not Detected Not Detected [facility] Respiratory Syncytial Virus Not Detected Not Detected [facility] Chlamydophila pneumoniae Not Detected Not Detected [facility] Mycoplasma pneumoniae Not Detected Not Detected [facility] Nasopharyngeal Swab Other / Unknown 07/28 8:01 PM EDT 07/28/2022 8:29 PM EDT Comment:Symptoms->Fever / Re spiratory Symptoms Narrative Resulting Agency Comment Spec In Lab Shea Fox MD MICROBIOLOGY - GENER AL ORDERABLES [facility] [place] [address] * COVID-19 PCR (07/28/2022 8:01 PM EDT) SARS-CoV-2 RNA PCR Not Detected Not Detected [facility] Comment: This result should be interpreted in combination with the clinical observations, patient history and epidemiological information. For testing of asymptomatic individuals, assay performance characteristics and clinical utility have not been evaluated. Testing for SARS-CoV-2 (Severe acute respiratory syndrome coronavirus 2, formerly known as 2019 novel coronavirus or 2019-nCoV) to aid in the diagnosis of COVID-19 is performed using the Simplexa COVID-19 Direct Assay by QThru as authorized by the FDA issued Emergency Use Authorization (EUA). This assay is intended for In-vitro Diagnostic (IVD) use with nasopharyngeal swabs collected from individuals meeting the CDC criteria for testing. The assay is performed based on the instructions for use and additional guidance provided by the FDA. Testing is performed in the Microbiology Laboratory within the Department of Pathology and Laboratory Medicine at [facility], certified under the Clinical Laboratory Improvement Amendments of 1988 (CLIA), 42 U.S.C. section 263a, to perform high complexity tests. Assay performance has been verified according to clinical laboratory regulatory requirements. Test results are provided above. A result of Not Detected indicates that the viral RNA target is not present but does not preclude SARS-CoV-2 infection. False negative results may occur if a specimen is improperly collected, transported or handled; if amplification inhibitors are present; or if inadequate numbers of viral particles are present in the specimen. A result of Detected suggests a current or recent infection and the patient is presumed to be infected. Positive and negative predictive values for this test are highly dependent on disease prevalence. A result of Invalid indicates the inability to conclusively determine the presence or absence of SARS-CoV-2 RNA in the sample which can be due to a variety of factors. Recollection is recommended in the case of an invalid result. CDC COVID-19 criteria for testing on human specimens and clinical management guidance information are available at the CDC Coronavirus Disease 2019 (COVID-19) webpage under Information for Healthcare Professionals (https://www.cdc.gov/coronavirus/2019-ncov/hcp/index.html). Additional information about this and other EUA tests can be found in provider and patient fact sheets at the following FDA website: https://www.fda.gov/medical-devices/lugrfokralg-hvnvcfo-0503-zjrsc-01-kxljtldpr- use-a rzmskvhcjlrct-schltvh-txjhsnb/hpbcm-faaahemdnyj-qmpb SARS-CoV-2 Source [employer] Swab [facility] Nasopharyngeal Swab 07/29/19 8:01 PM EDT 07/28/2022 8:29 PM EDT Comment:Symptoms->Fever / Re spiratory Symptoms Narrative Resulting Agency Comment Spec In Lab Jamshid Collins MD MICROBIOLOGY - GENER AL ORDERABLES [facility] [place] [address] * CT Lumbar Spine w Contrast (07/28/2022 11:29 AM EDT) Anatomical Region Laterality Modality L-spine Computed Tomogra phy Impressions 07/28/2022 1:12 PM EDT Interval decrease in size of soft tissue attenuation collections areas about each of the two interval placed drains. The degree of decrease is more substantial in the more cephalad of the two areas Thank you for letting us participate in the care of this patient. ??If you are a health care provider and have any questions regarding this report, please contact the number below. ??For patients who have questions please contact the health ambulatory care that requested your imaging first. ? Narrative 07/28/2022 1:12 PM EDT EXAMINATION: CT LUMBAR SPINE W CONTRAST CLINICAL HISTORY: Low back pain, infection suspected eval for interval changes in abscesses s/p drain placement; query insufficient source control TECHNIQUE: CT lumbar spine performed after the intravenous administration of contrast. Administered 65.0 ml of OMNIPAQUE 350.00 mg/ml. COMPARISON: CT lumbar spine of 07/22/2022 FINDINGS: There is been interval placement of two drains in the lower back. Soft tissue attenuation material about the lower two drains is slightly decreased when compared to the prior study; the abnormal material continues to surround the dorsal aspect of the iliac screw. The size of the collection about the more cephalad of the two drains is substantially decreased in size. No new or enlarging collection is evident. No site of osteolysis is present. The marked scoliotic deformity of the lumbar spine is unchanged. The configuration of the posterior fusion hardware is unaltered. Procedure Note Bobo Keane MD - 07/28/2022 EXAMINATION: CT LUMBAR SPINE W CONTRAST CLINICAL HISTORY: Low back pain, infection suspected eval for interval changes in abscesses s/p drain placement; queryinsufficient source control TECHNIQUE: CT lumbar spine performed after the intravenous administration ofcontrast. Administered 65.0 ml of OMNIPAQUE 350.00 mg/ml. COMPARISON: CT lumbar spine of 07/22/2022 FINDINGS: There is been interval placement of two drains in the lower back. Softtissue attenuation material about the lower two drains is slightly decreasedwhen compared to the prior study; the abnormal material continues to surroundthe dorsal aspect of the iliac screw. The size of the collection about themore cephalad of the two drains is substantially decreased in size. No new or enlarging collection is evident. No site of osteolysis is present. The marked scoliotic deformity of thelumbar spine is unchanged. The configuration of the posterior fusion hardwareis unaltered. IMPRESSION Interval decrease in size of soft tissue attenuation collections areasabout each of the two interval placed drains. The degree of decrease is more substantial in the more cephalad of the two areas Thank you for letting us participate in the care of this patient. If youare a health care provider and have any questions regarding this report,please contact the number below. For patients who have questions please contactthe health ambulatory care that requested your imaging first. Electronically signed by: Bobo Keane MD, [facility]([phone]), at 07/28/2022 1:12 PM Jamshid Collins MD IMG CT ORDERABLES * Differential, Automated (07/28/2022 5:02 AM EDT) Neutrophils % 52.9 % [facility] Neutr Abs (ANC) 2.31 1.70 - 6.10 x10(3)/[facility] Lymphocytes % 34.3 % [facility] Lymphocytes Abs 1.5 0.9 - 3.2 x10(3)/[facility] Monocytes % 11.2 % [facility] Monocyte Abs 0.5 0.3 - 0.9 x10(3)/[facility] Eosinophils % 1.1 % [facility] Eosinophils Abs 0.0 0.0 - 0.4 x10(3)/[facility] Basophils % 0.5 % [facility] Basophils Abs 0.0 0.0 - 0.1 x10(3)/[facility] Immature Gran % 0.00 % [facility] Comment: Immature granulocytes(IG's)percentage and absolute count will include metamyelocytes, myelocytes, and promyelocytes. Blood smears from CBCs yielding IG's will be scanned manually for concordance. If this scan disagrees with the automated IG or if promyelocytes are noted, a manual differential will be performed. Debora Gran Abs 0.00 0.00 - 0.04 x10(3)/[facility] Blood 07/28/2022 5:02 AM EDT 07/28/2022 5:24 AM EDT Narrative Resulting Agency Comment Spec In Lab Jamshid Collins MD HEMATOLOGY ORDERABLE S [facility] [place] [address] * (ABNORMAL) Hemogram (07/28/2022 5:02 AM EDT) Pathologist [facility] WBC 4.4 4.0 - 9.5 x10(3)/[facility] RBC 3.83(L) 4.00 - 5.21 x10(6)/[facility] Hemoglobin 9.5(L) 11.7 - 15.5 g/dL [facility] Hematocrit 30.3(L) 35.7 - 45.8 % [facility] MCV 79.1(L) 82.6 - 94.[address] [facility] MCH 24.8(L) 27.1 - 32.[address] [facility] MCHC 31.4(L) 31.7 - 35.0 g/dL [facility] Platelets 295 145 - 357 x10(3)/[facility] RDWSD 53.1(H) 37.0 - 46.[address] [facility] RDWCV 18.3(H) 11.5 - 14.1 % [facility] MPV 9.5 7.6 - 12.[address] [facility] nRBC % Auto 0.0 % [facility] nRBC Abs Auto 0.000 0.000 - 0.000 x10(3)/[facility] Blood 07/28/2022 5:02 AM EDT 07/28/2022 5:24 AM EDT Narrative Resulting Agency Comment Spec In Lab Jamshid Collins MD HEMATOLOGY ORDERABLE S Performing Organization Address City/[facility]/ZIP Co de Phone Number [facility] [place] [address] * (ABNORMAL) CRP, acute inflammation (07/28/2022 5:02 AM EDT) CRP 33.1(H) <=4.9 mg/L [facility] Blood 07/28/2022 5:02 AM EDT 07/28/2022 5:24 AM EDT Narrative Resulting Agency Comment Spec In Lab Jamshid Collins MD CHEMISTRY ORDERABLES [facility] [place] [address] * (ABNORMAL) Basic Metabolic Panel (non-fasting) (07/28/2022 5:02 AM EDT) Glucose Lvl 91 65 - 199 mg/dL [facility] Comment:Diabetes: >=200 mg/d L plus symptoms BUN 10 8 - 18 mg/dL [facility] Creatinine 0.28(L) 0.70 - 1.20 mg/dL [facility] Sodium 138 135 - 145 mmol/L [facility] Potassium 4.0 3.5 - 5.0 mmol/L [facility] Comment: Please note: ??Patients with WBC >100,000 may have falsely elevated Potassium levels. ??For accurate Potassium quantification in these patients send serum separator tube (gold top) for subsequent determinations. ??Contact the Clinical Chemistry Laboratory if there are any questions. Chloride 103 98 - 107 mmol/L [facility] CO2 25 22 - 31 mmol/L [facility] Anion Gap 10 5 - 15 mmol/L [facility] Calcium 8.8 8.5 - 10.5 mg/dL [facility] Estimated GFR 150 >=60 mL/min/1. 73 m?? [facility] Comment: This patient's estimated GFR [...] and symptoms in addition to eGFR. Blood 07/28/2022 5:02 AM EDT 07/28/2022 5:24 AM EDT Narrative Resulting Agency Comment Spec In Lab Jamshid Collins MD CHEMISTRY ORDERABLES Performing Organization Address City/[facility]/ZIP Co de Phone Number [facility] [place] [address] * Differential, Automated (07/27/2022 2:45 AM EDT) Neutrophils % 48.7 % [facility] Neutr Abs (ANC) 2.57 1.70 - 6.10 x10(3)/[facility] Lymphocytes % 40.6 % [facility] Lymphocytes Abs 2.1 0.9 - 3.2 x10(3)/[facility] Monocytes % 8.2 % [facility] Monocyte Abs 0.4 0.3 - 0.9 x10(3)/[facility] Eosinophils % 1.5 % [facility] Eosinophils Abs 0.1 0.0 - 0.4 x10(3)/[facility] Basophils % 0.8 % [facility] Basophils Abs 0.0 0.0 - 0.1 x10(3)/[facility] Immature Gran % 0.20 % [facility] Comment: Immature granulocytes(IG's)percentage and absolute count will include metamyelocytes, myelocytes, and promyelocytes. Blood smears from CBCs yielding IG's will be scanned manually for concordance. If this scan disagrees with the automated IG or if promyelocytes are noted, a manual differential will be performed. Debora Gran Abs 0.01 0.00 - 0.04 x10(3)/[facility] LABORATORY Blood 07/27/2022 2:45 AM EDT 07/27/2022 2:52 AM EDT Narrative Resulting Agency Comment Spec In Lab Jamshid Collins MD HEMATOLOGY ORDERABLE S Performing Organization Address City/[facility]/ZIP Co de Phone Number [facility] [place] [address] * (ABNORMAL) Hemogram (07/27/2022 2:45 AM EDT) Pathologist [facility] WBC 5.3 4.0 - 9.5 x10(3)/[facility] LABORATORY RBC 4.27 4.00 - 5.21 x10(6)/[facility] LABORATORY Hemoglobin 10.4(L) 11.7 - 15.5 g/dL [facility] Hematocrit 33.6(L) 35.7 - 45.8 % [facility] MCV 78.7(L) 82.6 - 94.[address] [facility] MCH 24.4(L) 27.1 - 32.[address] [facility] MCHC 31.0(L) 31.7 - 35.0 g/dL [facility] Platelets 350 145 - 357 x10(3)/[facility] LABORATORY RDWSD 52.4(H) 37.0 - 46.0 [facility] LABORATORY RDWCV 18.3(H) 11.5 - 14.1 % [facility] MPV 9.4 7.6 - 12.9 [facility] LABORATORY nRBC % Auto 0.0 % [facility] LABORATORY nRBC Abs Auto 0.000 0.000 - 0.000 x10(3)/[facility] LABORATORY Blood 07/27/2022 2:45 AM EDT 07/27/2022 2:52 AM EDT Narrative Resulting Agency Comment Spec In Lab Jamshid Collins MD HEMATOLOGY ORDERABLE S [facility] [place] [address] * Lactate, whole blood, send to lab ([facility]) (07/27/2022 2:45 AM EDT) Pathologist [facility] Lactate WB 1.2 0.5 - 2.2 mmol/L [facility] Blood 07/27/2022 2:45 AM EDT 07/27/2022 2:50 AM EDT Narrative Resulting Agency Comment Spec In Lab Shea Fox MD CHEMISTRY ORDERABLES Performing Organization Address [facility] Co de Phone Number [facility] [place] [address] * Magnesium (07/27/2022 2:45 AM EDT) Magnesium 0.78 0.69 - 1.07 mmol/L [facility] Blood 07/27/2022 2:45 AM EDT 07/27/2022 2:52 AM EDT Narrative Resulting Agency Comment Spec In Lab Sharron Winters MD CHEMISTRY ORDERABLES Performing Organization Address [facility] Co de Phone Number [facility] [place] [address] * (ABNORMAL) CRP, acute inflammation (07/27/2022 2:45 AM EDT) CRP 27.0(H) <=4.9 mg/L [facility]ORY Blood 07/27/2022 2:45 AM EDT 07/27/2022 2:52 AM EDT Narrative Resulting Agency Comment Spec In Lab Jamshid Collins MD CHEMISTRY ORDERABLES Performing Organization Address [facility] Co de Phone Number [facility] [place] [address] * (ABNORMAL) Sedimentation rate (07/27/2022 2:45 AM EDT) Sed Rate 105(H) 2 - 37 mm/hr [facility] Comment: Effective April 06, 2019 new capillary photometric technology has resulted in a change in reference ranges. It is recommended that each ESR result be reviewed with its own age appropriate reference range. Blood 07/27/2022 2:45 AM EDT 07/27/2022 2:52 AM EDT Narrative Resulting Agency Comment Spec In Lab Jamshid Collins MD HEMATOLOGY ORDERABLE S [facility] [place] [address] * (ABNORMAL) Basic Metabolic Panel (non-fasting) (07/27/2022 2:45 AM EDT) Glucose Lvl 105 65 - 199 mg/dL [facility] Comment:Diabetes: >=200 mg/d L plus symptoms BUN 12 8 - 18 mg/dL [facility] Creatinine 0.35(L) 0.70 - 1.20 mg/dL [facility] Sodium 139 135 - 145 mmol/L [facility] Potassium 4.1 3.5 - 5.0 mmol/L [facility] Comment: Please note: ??Patients with WBC >100,000 may have falsely elevated Potassium levels. ??For accurate Potassium quantification in these patients send serum separator tube (gold top) for subsequent determinations. ??Contact the Clinical Chemistry Laboratory if there are any questions. Chloride 103 98 - 107 mmol/L [facility] CO2 25 22 - 31 mmol/L [facility] Anion Gap 11 5 - 15 mmol/L [facility] Calcium 9.3 8.5 - 10.5 mg/dL [facility] Estimated GFR 142 >=60 mL/min/1. 73 m?? [facility] Comment: This patient's estimated GFR [...] and symptoms in addition to eGFR. Blood 07/27/2022 2:45 AM EDT 07/27/2022 2:52 AM EDT Narrative Resulting Agency Comment Spec In Lab Jamshid Collins MD CHEMISTRY ORDERABLES Performing Organization Address City/[facility]/ZIP [place] [address] * Differential, Automated (07/26/2022 4:46 AM EDT) Neutrophils % 46.4 % [facility] Neutr Abs (ANC) 2.25 1.70 - 6.10 x10(3)/[facility] LABORATORY Lymphocytes % 43.0 % [facility] Lymphocytes Abs 2.1 0.9 - 3.2 x10(3)/[facility] LABORATORY Monocytes % 8.0 % [facility] Monocyte Abs 0.4 0.3 - 0.9 x10(3)/[facility] LABORATORY Eosinophils % 1.6 % [facility] Eosinophils Abs 0.1 0.0 - 0.4 x10(3)/[facility] LABORATORY Basophils % 0.8 % [facility] Basophils Abs 0.0 0.0 - 0.1 x10(3)/[facility] LABORATORY Immature Gran % 0.20 % [facility] Comment: Immature granulocytes(IG's)percentage and absolute count will include metamyelocytes, myelocytes, and promyelocytes. Blood smears from CBCs yielding IG's will be scanned manually for concordance. If this scan disagrees with the automated IG or if promyelocytes are noted, a manual differential will be performed. Debora Gran Abs 0.01 0.00 - 0.04 x10(3)/[facility] LABORATORY Blood 07/26/2022 4:46 AM EDT 07/26/2022 5:23 AM EDT Narrative Resulting Agency Comment Spec In Lab Jamshid Collins MD HEMATOLOGY ORDERABLE S [facility] [place] [address] * (ABNORMAL) Hemogram (07/26/2022 4:46 AM EDT) WBC 4.9 4.0 - 9.5 x10(3)/[facility] LABORATORY RBC 4.07 4.00 - 5.21 x10(6)/[facility] LABORATORY Hemoglobin 10.1(L) 11.7 - 15.5 g/dL [facility] Hematocrit 31.9(L) 35.7 - 45.8 % [facility] MCV 78.4(L) 82.6 - 94.4 [facility] LABORATORY MCH 24.8(L) 27.1 - 32.[address] [facility] MCHC 31.7 31.7 - 35.0 g/dL [facility] Platelets 348 145 - 357 x10(3)/[facility] LABORATORY RDWSD 52.4(H) 37.0 - 46.0 [facility] LABORATORY RDWCV 18.3(H) 11.5 - 14.1 % [facility] MPV 9.6 7.6 - 12.9 [facility] LABORATORY nRBC % Auto 0.0 % [facility] nRBC Abs Auto 0.000 0.000 - 0.000 x10(3)/[facility] LABORATORY Blood 07/26/2022 4:46 AM EDT 07/26/2022 5:23 AM EDT Narrative Resulting Agency Comment Spec In Lab Jamshid Collins MD HEMATOLOGY ORDERABLE S [facility] [place] [address] * (ABNORMAL) Sedimentation rate (07/26/2022 4:46 AM EDT) Sed Rate 102(H) 2 - 37 mm/hr [facility] Comment: Effective April 06, 2019 new capillary photometric technology has resulted in a change in reference ranges. It is recommended that each ESR result be reviewed with its own age appropriate reference range. Blood 07/26/2022 4:46 AM EDT 07/26/2022 5:23 AM EDT Narrative Resulting Agency Comment Spec In Lab Jamshid Collins MD HEMATOLOGY ORDERABLE S Performing Organization Address [facility]/ZIP Co de Phone Number [facility] [place] [address] * (ABNORMAL) CRP, acute inflammation (07/26/2022 4:46 AM EDT) CRP 40.5(H) <=4.9 mg/L [facility] Blood 07/26/2022 4:46 AM EDT 07/26/2022 5:23 AM EDT Narrative Resulting Agency Comment Spec In Lab Jamshid Collins MD CHEMISTRY ORDERABLES Performing Organization Address [facility] Co de Phone Number [facility] [place] [address] * (ABNORMAL) Basic Metabolic Panel (non-fasting) (07/26/2022 4:46 AM EDT) Glucose Lvl 100 65 - 199 mg/dL [facility] Comment:Diabetes: >=200 mg/d L plus symptoms BUN 13 8 - 18 mg/dL [facility] Creatinine 0.25(L) 0.70 - 1.20 mg/dL [facility] Sodium 139 135 - 145 mmol/L [facility] Potassium 3.8 3.5 - 5.0 mmol/L [facility] Comment: Please note: ??Patients with WBC >100,000 may have falsely elevated Potassium levels. ??For accurate Potassium quantification in these patients send serum separator tube (gold top) for subsequent determinations. ??Contact the Clinical Chemistry Laboratory if there are any questions. Chloride 103 98 - 107 mmol/L [facility] CO2 23 22 - 31 mmol/L [facility] Anion Gap 13 5 - 15 mmol/L [facility] Calcium 9.4 8.5 - 10.5 mg/dL [facility] Estimated GFR 154 >=60 mL/min/1. 73 m?? [facility] Comment: This patient's estimated GFR [...] and symptoms in addition to eGFR. Blood 07/26/2022 4:46 AM EDT 07/26/2022 5:23 AM EDT Narrative Resulting Agency Comment Spec In Lab Jamshid Collins MD CHEMISTRY ORDERABLES [facility] [place] [address] * EKG 12 Lead (07/25/2022 12:42 PM EDT) Ventricular rate 106 BPM MUSE SYSTEM Atrial Rate 106 BPM MUSE SYSTEM P-R Interval 120 ms MUSE SYSTEM QRS Duration 74 ms MUSE SYSTEM Q-T Interval 328 ms MUSE SYSTEM QTC Calculated (Bezet) 435 ms MUSE SYSTEM Calculated P Hardwick 22 degrees MUSE SYSTEM Calculated R Hardwick 7 degrees MUSE SYSTEM Calculated T Hardwick 25 degrees MUSE SYSTEM INTERPRETATION Sinus tachycardia Possible Inferior infarct (cited on or before 07-JUL-2022) Abnormal ECG When compared with ECG of 07-JUL-2022 11:44, Nonspecific T wave abnormality no longer evident in Anterior leads Confirmed by MD Chowdary Daniel ([id number]) on 08/07/2022 5:45:44 PM MUSE SYSTEM 07/25/2022 12:4 2 PM EDT 08/07/2022 5:45 PM EDT Jamshid Collins MD ECG ORDERABLES MUSE SYSTEM * Differential, Automated (07/25/2022 4:37 AM EDT) Neutrophils % 54.4 % [facility] Neutr Abs (ANC) 2.66 1.70 - 6.10 x10(3)/[facility] LABORATORY Lymphocytes % 35.0 % [facility] Lymphocytes Abs 1.7 0.9 - 3.2 x10(3)/[facility] LABORATORY Monocytes % 8.6 % [facility] Monocyte Abs 0.4 0.3 - 0.9 x10(3)/[facility] LABORATORY Eosinophils % 1.0 % [facility] Eosinophils Abs 0.0 0.0 - 0.4 x10(3)/[facility] LABORATORY Basophils % 0.6 % [facility] Basophils Abs 0.0 0.0 - 0.1 x10(3)/[facility] LABORATORY Immature Gran % 0.40 % [facility] Comment: Immature granulocytes(IG's)percentage and absolute count will include metamyelocytes, myelocytes, and promyelocytes. Blood smears from CBCs yielding IG's will be scanned manually for concordance. If this scan disagrees with the automated IG or if promyelocytes are noted, a manual differential will be performed. Debora Gran Abs 0.02 0.00 - 0.04 x10(3)/[facility] LABORATORY Blood 07/25/2022 4:37 AM EDT 07/25/2022 4:50 AM EDT Narrative Resulting Agency Comment Spec In Lab Eddi Vázquez MD HEMATOLOGY ORDERABLE S Performing Organization Address City/[facility]/ZIP Co de Phone Number [facility] [place] [address] * (ABNORMAL) Hemogram (07/25/2022 4:37 AM EDT) [facility] WBC 4.9 4.0 - 9.5 x10(3)/[facility] LABORATORY RBC 4.16 4.00 - 5.21 x10(6)/[facility] LABORATORY Hemoglobin 10.3(L) 11.7 - 15.5 g/dL [facility] Hematocrit 32.6(L) 35.7 - 45.8 % [facility] MCV 78.4(L) 82.6 - 94.[address] [facility] MCH 24.8(L) 27.1 - 32.[address] [facility] MCHC 31.6(L) 31.7 - 35.0 g/dL [facility] Platelets 357 145 - 357 x10(3)/[facility] LABORATORY RDWSD 52.5(H) 37.0 - 46.0 [facility] LABORATORY RDWCV 18.5(H) 11.5 - 14.1 % [facility] MPV 9.6 7.6 - 12.9 [facility] LABORATORY nRBC % Auto 0.0 % [facility] nRBC Abs Auto 0.000 0.000 - 0.000 x10(3)/[facility] LABORATORY Blood 07/25/2022 4:37 AM EDT 07/25/2022 4:50 AM EDT Narrative Resulting Agency Comment Spec In Lab Eddi Vázquez MD HEMATOLOGY ORDERABLE S [facility] [place] [address] * (ABNORMAL) Basic Metabolic Panel (non-fasting) (07/25/2022 4:37 AM EDT) [facility] Glucose Lvl 99 65 - 199 mg/dL [facility] Comment:Diabetes: >=200 mg/d L plus symptoms BUN 13 8 - 18 mg/dL [facility] Creatinine 0.49(L) 0.70 - 1.20 mg/dL [facility] Sodium 138 135 - 145 mmol/L [facility] Potassium 3.9 3.5 - 5.0 mmol/L [facility] Comment: Please note: ??Patients with WBC >100,000 may have falsely elevated Potassium levels. ??For accurate Potassium quantification in these patients send serum separator tube (gold top) for subsequent determinations. ??Contact the Clinical Chemistry Laboratory if there are any questions. Chloride 105 98 - 107 mmol/L [facility] CO2 23 22 - 31 mmol/L [facility] Anion Gap 10 5 - 15 mmol/L [facility] Calcium 8.9 8.5 - 10.5 mg/dL [facility] Estimated GFR 131 >=60 mL/min/1. 73 m?? [facility] Comment: This patient's estimated GFR [...] and symptoms in addition to eGFR. Blood 07/25/2022 4:37 AM EDT 07/25/2022 4:49 AM EDT Narrative Resulting Agency Comment Spec In Lab Eddi Vázquez MD CHEMISTRY ORDERABLES [facility] [place] [address] * IR All Drainage Procedures (07/24/2022 4:02 PM EDT) Anatomical Region Laterality Modality X-Ray Angiograph y Impressions 07/25/2022 8:08 AM EDT Percutaneous placement of a 10 Mozambican drainage catheter into subcutaneous collection adjacent to RIGHT SI joint screw, yielding 5 mL of bloody fluid. Percutaneous placement of a 8 Mozambican drainage catheter into subcutaneous collection adjacent to L2/L3, yielding 5 mL of serosanguinous fluid. Plan: Return to floors in stable condition Routine drain care as ordered Follow-up drain check in 2-3 weeks PROCEDURE SUMMARY: - Soft tissue drainage catheter placement under fluoroscopic and ultrasound guidance x2 - Additional procedure(s): Abscessogram PROCEDURE DETAILS: Pre-procedure Consent: Informed consent for the procedure including risks, benefits and alternatives was obtained and time-out was performed prior to the procedure. Preparation: The site was prepared and draped using maximal sterile barrier technique including cutaneous antisepsis. Anesthesia/sedation Level of anesthesia/sedation: Minimal sedation (anxiolysis), intravenous Versed administered Anesthesia/sedation administered by: Independent trained observer under attending supervision with continuous monitoring of the patients level of consciousness and physiologic status Total intra-service sedation time (minutes): Not applicable Drainage catheter placement The patient was positioned left lateral decubitus. Initial imaging was performed. Local anesthesia was administered. The fluid collection was accessed using an access needle followed by wire insertion and serial dilation and a drainage catheter was placed. Position of the drainage catheter within the fluid collection was confirmed. - Initial imaging findings: Loculated fluid collection surrounding the RIGHT SI joint screw extending cephalad and medial and a similar distribution as seen on recent CT - Drainage catheter placed: Multipurpose drainage catheter - External catheter securement: Non-absorbable suture - Post-drainage imaging findings: Drain within targeted fluid collection Drainage catheter placement The patient was positioned left lateral decubitus. Initial imaging was performed. Local anesthesia was administered. The fluid collection was accessed using an access needle followed by wire insertion and serial dilation and a drainage catheter was placed. Position of the drainage catheter within the fluid collection was confirmed. - Initial imaging findings: Angular subcutaneous fluid collection at the level of L2-L3 similar in appearance to the recent CT study - Drainage catheter placed: Multipurpose drainage catheter - External catheter securement: Non-absorbable suture - Post-drainage imaging findings: Drain within targeted fluid collection Contrast Contrast agent: Omnipaque 350 Contrast volume (mL): [address] dose length product (mGy-cm): Not applicable Fluoroscopy time (minutes): 3 Reference air kerma (mGy): 26 Kerma area product (Gy-cm2): 9.95 Additional Details Additional description of procedure: After drain placement in the collection adjacent to the RIGHT SI screw, contrast was instilled showing a bilobed collection surrounding the SI joint with a thin tract along its cranial margin extending to the second collection at the L2-L3 level. Equipment details: None Specimens removed: Aspirated fluid was sent for analysis. Estimated blood loss (mL): Less than 10 Standardized report: [email or web address] Attestation Signer name: Anurag Kumar MD I attest that I was present for the entire procedure. I reviewed the stored images and agree with the report as written. Sedation attestation: N/A Thank you for letting us participate in the care of this patient. ??If you are a health care provider and have any questions regarding this report, please contact the number below. ??For patients who have questions please contact the health ambulatory care that requested your imaging first. ? Electronically signed by: Anurag Kumar MD, [facility] ([phone]), at 07/25/2022 8:08 AM Narrative 07/25/2022 8:08 AM EDT PROCEDURE: Drainage catheter placement x2 Procedural Personnel Attending physician(s): Anurag Kumar MD Fellow physician(s): None Resident physician(s): Lucho Burciaga MD Advanced practice provider(s): None Pre-procedure diagnosis: Subcutaneous abscess Post-procedure diagnosis: Same Indication: Pain associated with fluid collection Additional clinical history: None Complications: No immediate complications. Procedure Note Anurag Kumar MD - 07/25/2022 PROCEDURE: Drainage catheter placement x2 Procedural Personnel Attending physician(s): Anurag Kumar MD Fellow physician(s): None Resident physician(s): Lucho Burciaga MD Advanced practice provider(s): None Pre-procedure diagnosis: Subcutaneous abscess Post-procedure diagnosis: Same Indication: Pain associated with fluid collection Additional clinical history: None Complications: No immediate complications. IMPRESSION Percutaneous placement of a 10 Mozambican drainage catheter intosubcutaneous collection adjacent to RIGHT SI joint screw, yielding 5 mL of bloodyfluid. Percutaneous placement of a 8 [place]ambican drainage catheter into subcutaneous collection adjacent to L2/L3, yielding 5 mL of serosanguinous fluid. Plan: Return to floors in stable condition Routine drain care as ordered Follow-up drain check in 2-3 weeks PROCEDURE SUMMARY: - Soft tissue drainage catheter placement under fluoroscopic andultrasound guidance x2 - Additional procedure(s): Abscessogram PROCEDURE DETAILS: Pre-procedure Consent: Informed consent for the procedure including risks, benefitsand alternatives was obtained and time-out was performed prior to theprocedure. Preparation: The site was prepared and draped using maximal sterilebarrier technique including cutaneous antisepsis. Anesthesia/sedation Level of anesthesia/sedation: Minimal sedation (anxiolysis), intravenousVersed administered Anesthesia/sedation administered by: Independent trained observer under attending supervision with continuous monitoring of the patients levelof consciousness and physiologic status Total intra-service sedation time (minutes): Not applicable Drainage catheter placement The patient was positioned left lateral decubitus. Initial imaging was performed. Local anesthesia was administered. The fluid collection wasaccessed using an access needle followed by wire insertion and serial dilation kaden drainage catheter was placed. Position of the drainage catheter within thefluid collection was confirmed. - Initial imaging findings: Loculated fluid collection surrounding theRIGHT SI joint screw extending cephalad and medial and a similar distribution asseen on recent CT - Drainage catheter placed: Multipurpose drainage catheter - External catheter securement: Non-absorbable suture - Post-drainage imaging findings: Drain within targeted fluid collection Drainage catheter placement The patient was positioned left lateral decubitus. Initial imaging was performed. Local anesthesia was administered. The fluid collection wasaccessed using an access needle followed by wire insertion and serial dilation kaden drainage catheter was placed. Position of the drainage catheter within thefluid collection was confirmed. - Initial imaging findings: Angular subcutaneous fluid collection at thelevel of L2-L3 similar in appearance to the recent CT study - Drainage catheter placed: Multipurpose drainage catheter - External catheter securement: Non-absorbable suture - Post-drainage imaging findings: Drain within targeted fluid collection Contrast Contrast agent: Omnipaque 350 Contrast volume (mL): [address] dose length product (mGy-cm): Not applicable Fluoroscopy time (minutes): 3 Reference air kerma (mGy): 26 Kerma area product (Gy-cm2): 9.95 Additional Details Additional description of procedure: After drain placement in thecollection adjacent to the RIGHT SI screw, contrast was instilled showing a bilobed collection surrounding the SI joint with a thin tract along its cranialmargin extending to the second collection at the L2-L3 level. Equipment details: None Specimens removed: Aspirated fluid was sent for analysis. Estimated blood loss (mL): Less than 10 Standardized report: [email or web address] Attestation Signer name: Anurag Kumar MD I attest that I was present for the entire procedure. I reviewed thestored images and agree with the report as written. Sedation attestation: N/A Thank you for letting us participate in the care of this patient. If youare a health care provider and have any questions regarding this report,please contact the number below. For patients who have questions please contactthe health ambulatory care that requested your imaging first. Electronically signed by: Anurag Kumar MD, [facility]([phone]), at 07/25/2022 8:08 AM Ernesto Willingham MD IMG IR ORDERABLES * Anaerobic Culture (07/24/2022 3:47 PM EDT) Anaerobic Culture No anaerobic organisms isolated [facility] Fluid 07/24/2022 3:47 PM EDT 07/24/2022 4:43 PM EDT Comment:SI/L5 Narrative Resulting Agency Comment Spec In Lab Anurag Kumar MD MICROBIOLOGY - GEN ERAL ORDERABLES Performing Organization Address City/[facility]/ZIP Co de Phone Number [facility] [place] [address] * Crystal Exam Body Fluid Other (07/24/2022 3:47 PM EDT) Crystal BF Type Other [facility] Comment: Interpret with caution due to questionable sample integrity caused by sample age. Results may be inaccurate due to presence of many degenerated cells. Crystal BF None Seen [facility] Other 07/24/2022 3:47 PM EDT 07/24/2022 4:31 PM EDT Narrative Resulting Agency Comment Spec In Lab Anurag Kumar MD BODY FLUIDS AND ST OOLS ORDERABLES Performing Organization Address City/[facility]/ZIP Co de Phone Number [facility] [place] [address] * Cell Count Body Fluid Other (07/24/2022 3:47 PM EDT) Spec Type BF Other [facility] Comment: Interpret with caution due to questionable sample integrity caused by sample age. Results may be inaccurate due to presence of many degenerated cells. Called by: [facility], Read back by: carlin alejo, Date/Time:07/24/22 17:51. Color BF Red [facility] Comment: Interpret with caution due to questionable sample integrity caused by sample age. Results may be inaccurate due to presence of many degenerated cells. Appearance BF Cloudy [facility] Comment: Interpret with caution due to questionable sample integrity caused by sample age. Results may be inaccurate due to presence of many degenerated cells. WBC BF Ct Not Perf [facility] Comment: Interpret with caution due to questionable sample integrity caused by sample age. Results may be inaccurate due to presence of many degenerated cells. All body fluid results should always be interpreted in light of the total clinical presentation of the patient, including clinical history, data from additional tests and other appropriate information. Polymorph % Not Perf [facility] Comment: Interpret with caution due to questionable sample integrity caused by sample age. Results may be inaccurate due to presence of many degenerated cells. Polymorphonuclear cell percent and absolute values may contain Neutrophils, Eosinophils, and Basophils. Body fluid smear will be scanned manually for concordance. Mononuc % Not Perf [facility] Comment: Interpret with caution due to questionable sample integrity caused by sample age. Results may be inaccurate due to presence of many degenerated cells. Mononuclear cell percent and absolute values may contain Lymphocytes and Monocytes. Body fluid smear will be scanned manually for concordance. Polymorph BF ABS Not Perf [facility] Comment: Interpret with caution due to questionable sample integrity caused by sample age. Results may be inaccurate due to presence of many degenerated cells. Polymorphonuclear cell percent and absolute values may contain Neutrophils, Eosinophils, and Basophils. Body fluid smear will be scanned manually for concordance. Mononuc ABS Not Perf [facility] Comment: Interpret with caution due to questionable sample integrity caused by sample age. Results may be inaccurate due to presence of many degenerated cells. Mononuclear cell percent and absolute values may contain Lymphocytes and Monocytes. Body fluid smear will be scanned manually for concordance. Other 07/24/2022 3:47 PM EDT 07/24/2022 4:31 PM EDT Narrative Resulting Agency Comment Spec In Lab Anurag Kumar MD BODY FLUIDS AND ST OOLS ORDERABLES [facility] [place] [address] * Abscess/Wound Aspirate Culture Abscess; Pelvic (07/24/2022 3:47 PM EDT) Abscess/Wound Aspirate Culture No growth [facility] Gram Stain Many Neutrophils seen No microorganisms seen. [facility] Abscess [place] / Unknown 07/24/2022 3:47 PM EDT 07/24/2022 4:43 PM EDT Comment:SI/L5 Narrative Resulting Agency Comment Spec In Lab Anurag Kumar MD MICROBIOLOGY - GEN ERAL ORDERABLES Performing Organization Address City/[facility]/ZIP Co de Phone Number [facility] [place] [address] * AFB culture (07/24/2022 3:22 PM EDT) Acid Fast Bacilli Culture No Acid Fast Bacilli isolated [facility] Acid Fast Stain No Acid Fast Bacilli seen [facility] Vertebra LUMBAR SPINE STRUCTURE / Unknown 07/24/2022 3:22 PM EDT 07/27/2022 12:32 PM EDT Comment:LUMBAR ABSCESS Narrative Resulting Agency Comment Spec In Lab Jamshid Collins MD MICROBIOLOGY - GENER AL ORDERABLES Performing Organization Address [facility] [place] [address] * Calcofluor White Stain (07/24/2022 3:22 PM EDT) Calcofluor Stain Calcofluor White Preparation: Negative [facility] Abscess LUMBAR SPINE STRUCTURE / Unknown 07/24/2022 3:22 PM EDT 07/27/2022 12:30 PM EDT Comment:Lumbar abscess Narrative Resulting Agency Comment Spec In Lab Jamshid Collins MD MICROBIOLOGY - GENER AL ORDERABLES Performing Organization Address [facility] [place] [address] * Fungus culture (07/24/2022 3:22 PM EDT) Fungus Culture No Fungus isolated [facility] Abscess LUMBAR SPINE STRUCTURE / Unknown 07/24/2022 3:22 PM EDT 07/27/2022 12:30 PM EDT Comment:Lumbar abscess Narrative Resulting Agency Comment Spec In Lab Jamshid Collins MD MICROBIOLOGY - GENER AL ORDERABLES Performing Organization Address City/[facility]/ZIP Co de Phone Number [facility] [place] [address] * Anaerobic Culture (07/24/2022 3:22 PM EDT) Anaerobic Culture No anaerobic organisms isolated [facility] Fluid 07/24/2022 3:22 PM EDT 07/24/2022 4:44 PM EDT Comment:Lumbar abscess Narrative Resulting Agency Comment Spec In Lab Mal Menchaca MD MICROBIOLOGY - GENER AL ORDERABLES [facility] [place] [address] * Body Fluid Culture, Aerobic (07/24/2022 3:22 PM EDT) Body Fluid Culture No growth [facility] Gram Stain Few Neutrophils seen No microorganisms seen. [facility] Fluid 07/24/2022 3:22 PM EDT 07/24/2022 4:44 PM EDT Comment:Lumbar abscess Narrative Resulting Agency Comment Spec In Lab Mal Menchaca MD MICROBIOLOGY - GENER AL ORDERABLES Performing Organization Address [facility]/ZIP Co de Phone Number [facility] [place] [address] * Crystal Exam Body Fluid Other (07/24/2022 3:22 PM EDT) Crystal BF Type Other [facility] Comment: Interpret with caution due to questionable sample integrity caused by sample age. Results may be inaccurate due to presence of many degenerated cells. Crystal BF None Seen [facility] Other 07/24/2022 3:22 PM EDT 07/24/2022 4:34 PM EDT Narrative Resulting Agency Comment Spec In Lab Ernesto Willingham MD BODY FLUIDS AND STOO LS ORDERABLES Performing Organization Address City/[facility]/ZIP Co de Phone Number [facility] [place] [address] * Cell Count Body Fluid Other (07/24/2022 3:22 PM EDT) Spec Type BF Other [facility] Comment: Interpret with caution due to questionable sample integrity caused by sample age. Results may be inaccurate due to presence of many degenerated cells. Called by: millicent, Read back by: carlin alejo, Date/Time:07/24/22 17:51. Color BF Red [facility] Comment: Interpret with caution due to questionable sample integrity caused by sample age. Results may be inaccurate due to presence of many degenerated cells. Appearance BF Cloudy [facility] Comment: Interpret with caution due to questionable sample integrity caused by sample age. Results may be inaccurate due to presence of many degenerated cells. WBC BF Ct Not Perf [facility] Comment: Interpret with caution due to questionable sample integrity caused by sample age. Results may be inaccurate due to presence of many degenerated cells. All body fluid results should always be interpreted in light of the total clinical presentation of the patient, including clinical history, data from additional tests and other appropriate information. Polymorph % Not Perf [facility] Comment: Interpret with caution due to questionable sample integrity caused by sample age. Results may be inaccurate due to presence of many degenerated cells. Polymorphonuclear cell percent and absolute values may contain Neutrophils, Eosinophils, and Basophils. Body fluid smear will be scanned manually for concordance. Mononuc % Not Perf [facility] Comment: Interpret with caution due to questionable sample integrity caused by sample age. Results may be inaccurate due to presence of many degenerated cells. Mononuclear cell percent and absolute values may contain Lymphocytes and Monocytes. Body fluid smear will be scanned manually for concordance. Polymorph BF ABS Not Perf [facility] Comment: Interpret with caution due to questionable sample integrity caused by sample age. Results may be inaccurate due to presence of many degenerated cells. Polymorphonuclear cell percent and absolute values may contain Neutrophils, Eosinophils, and Basophils. Body fluid smear will be scanned manually for concordance. Mononuc ABS Not Perf [facility] Comment: Interpret with caution due to questionable sample integrity caused by sample age. Results may be inaccurate due to presence of many degenerated cells. Mononuclear cell percent and absolute values may contain Lymphocytes and Monocytes. Body fluid smear will be scanned manually for concordance. Other 07/24/2022 3:22 PM EDT 07/24/2022 4:34 PM EDT Narrative Resulting Agency Comment Spec In Lab Ernesto Willingham MD BODY FLUIDS AND STOO LS ORDERABLES [facility] [place] [address] * Differential, Automated (07/24/2022 5:25 AM EDT) Neutrophils % 46.6 % [facility] Neutr Abs (ANC) 2.04 1.70 - 6.10 x10(3)/[facility] Lymphocytes % 42.9 % [facility] Lymphocytes Abs 1.9 0.9 - 3.2 x10(3)/[facility] Monocytes % 8.0 % [facility] Monocyte Abs 0.4 0.3 - 0.9 x10(3)/[facility] Eosinophils % 1.8 % [facility] Eosinophils Abs 0.1 0.0 - 0.4 x10(3)/[facility] Basophils % 0.7 % [facility] Basophils Abs 0.0 0.0 - 0.1 x10(3)/[facility] Immature Gran % 0.00 % [facility] Comment: Immature granulocytes(IG's)percentage and absolute count will include metamyelocytes, myelocytes, and promyelocytes. Blood smears from CBCs yielding IG's will be scanned manually for concordance. If this scan disagrees with the automated IG or if promyelocytes are noted, a manual differential will be performed. Debora Gran Abs 0.00 0.00 - 0.04 x10(3)/[facility] Blood 07/24/2022 5:25 AM EDT 07/24/2022 5:57 AM EDT Narrative Resulting Agency Comment Spec In Lab Eddi Vázquez MD HEMATOLOGY ORDERABLE S [facility] [place] [address] * (ABNORMAL) Hemogram (07/24/2022 5:25 AM EDT) WBC 4.4 4.0 - 9.5 x10(3)/[facility] RBC 3.92(L) 4.00 - 5.21 x10(6)/[facility] Hemoglobin 9.6(L) 11.7 - 15.5 g/dL [facility] Hematocrit 31.4(L) 35.7 - 45.8 % [facility] MCV 80.1(L) 82.6 - 94.[address] [facility] MCH 24.5(L) 27.1 - 32.[address] [facility] MCHC 30.6(L) 31.7 - 35.0 g/dL [facility] Platelets 343 145 - 357 x10(3)/[facility] RDWSD 54.7(H) 37.0 - 46.0 [facility] RDWCV 18.7(H) 11.5 - 14.1 % [facility] MPV 9.5 7.6 - 12.9 [facility] nRBC % Auto 0.0 % [facility] nRBC Abs Auto 0.000 0.000 - 0.000 x10(3)/[facility] Blood 07/24/2022 5:25 AM EDT 07/24/2022 5:57 AM EDT Narrative Resulting Agency Comment Spec In Lab Eddi Vázquez MD HEMATOLOGY ORDERABLE S [facility] [place] [address] * (ABNORMAL) Basic Metabolic Panel (non-fasting) (07/24/2022 5:25 AM EDT) Glucose Lvl 89 65 - 199 mg/dL [facility] Comment:Diabetes: >=200 mg/d L plus symptoms BUN 11 8 - 18 mg/dL [facility] Creatinine 0.34(L) 0.70 - 1.20 mg/dL [facility] Sodium 138 135 - 145 mmol/L [facility] Potassium 3.9 3.5 - 5.0 mmol/L [facility] Comment: Please note: ??Patients with WBC >100,000 may have falsely elevated Potassium levels. ??For accurate Potassium quantification in these patients send serum separator tube (gold top) for subsequent determinations. ??Contact the Clinical Chemistry Laboratory if there are any questions. Chloride 104 98 - 107 mmol/L [facility] CO2 23 22 - 31 mmol/L [facility] Anion Gap 11 5 - 15 mmol/L [facility] Calcium 9.1 8.5 - 10.5 mg/dL [facility] Estimated GFR 143 >=60 mL/min/1. 73 m?? [facility] Comment: This patient's estimated GFR [...] and symptoms in addition to eGFR. Blood 07/24/2022 5:25 AM EDT 07/24/2022 5:57 AM EDT Narrative Resulting Agency Comment Spec In Lab Eddi Vázquez MD CHEMISTRY ORDERABLES [facility] [place] [address] * Differential, Automated (07/23/2022 3:00 AM EDT) Neutrophils % 50.7 % [facility] Neutr Abs (ANC) 3.15 1.70 - 6.10 x10(3)/[facility] Lymphocytes % 40.3 % [facility] Lymphocytes Abs 2.5 0.9 - 3.2 x10(3)/[facility] Monocytes % 7.2 % [facility] Monocyte Abs 0.4 0.3 - 0.9 x10(3)/[facility] Eosinophils % 1.1 % [facility] Eosinophils Abs 0.1 0.0 - 0.4 x10(3)/[facility] Basophils % 0.5 % [facility] Basophils Abs 0.0 0.0 - 0.1 x10(3)/[facility] Immature Gran % 0.20 % [facility] Comment: Immature granulocytes(IG's)percentage and absolute count will include metamyelocytes, myelocytes, and promyelocytes. Blood smears from CBCs yielding IG's will be scanned manually for concordance. If this scan disagrees with the automated IG or if promyelocytes are noted, a manual differential will be performed. Debora Gran Abs 0.01 0.00 - 0.04 x10(3)/[facility] Blood 07/23/2022 3:00 AM EDT 07/23/2022 3:02 AM EDT Narrative Resulting Agency Comment Spec In Lab Eddi Vázquez MD HEMATOLOGY ORDERABLE S [facility] [place] [address] * (ABNORMAL) Hemogram (07/23/2022 3:00 AM EDT) WBC 6.2 4.0 - 9.5 x10(3)/[facility] RBC 4.19 4.00 - 5.21 x10(6)/[facility] Hemoglobin 10.5(L) 11.7 - 15.5 g/dL [facility] Hematocrit 32.7(L) 35.7 - 45.8 % [facility] MCV 78.0(L) 82.6 - 94.[address] [facility] MCH 25.1(L) 27.1 - 32.[address] [facility] MCHC 32.1 31.7 - 35.0 g/dL [facility] Platelets 364(H) 145 - 357 x10(3)/[facility] RDWSD 53.3(H) 37.0 - 46.0 [facility] RDWCV 18.6(H) 11.5 - 14.1 % [facility] MPV 9.0 7.6 - 12.9 [facility] nRBC % Auto 0.0 % [facility] nRBC Abs Auto 0.000 0.000 - 0.000 x10(3)/[facility] Blood 07/23/2022 3:00 AM EDT 07/23/2022 3:02 AM EDT Narrative Resulting Agency Comment Spec In Lab Eddi Vázquez MD HEMATOLOGY ORDERABLE S [facility] [place] [address] * (ABNORMAL) Basic Metabolic Panel (non-fasting) (07/23/2022 3:00 AM EDT) Glucose Lvl 101 65 - 199 mg/dL [facility] Comment:Diabetes: >=200 mg/d L plus symptoms BUN 9 8 - 18 mg/dL [facility] Creatinine 0.31(L) 0.70 - 1.20 mg/dL [facility] Sodium 141 135 - 145 mmol/L [facility] Potassium 3.6 3.5 - 5.0 mmol/L [facility] Comment: Please note: ??Patients with WBC >100,000 may have falsely elevated Potassium levels. ??For accurate Potassium quantification in these patients send serum separator tube (gold top) for subsequent determinations. ??Contact the Clinical Chemistry Laboratory if there are any questions. Chloride 105 98 - 107 mmol/L [facility] CO2 23 22 - 31 mmol/L [facility] Anion Gap 13 5 - 15 mmol/L [facility] Calcium 8.9 8.5 - 10.5 mg/dL [facility] Estimated GFR 146 >=60 mL/min/1. 73 m?? [facility] Comment: This patient's estimated GFR [...] and symptoms in addition to eGFR. Blood 07/23/2022 3:00 AM EDT 07/23/2022 3:02 AM EDT Narrative Resulting Agency Comment Spec In Lab Eddi Vázquez MD CHEMISTRY ORDERABLES [facility] [place] [address] * Blood culture (07/22/2022 10:47 PM EDT) Blood Culture No growth at [address] [facility] Blood VENOUS CATHETER / Unknown 07/22/2022 10:47 PM EDT 07/22/2022 10:48 PM EDT Comment:add-on Narrative Resulting Agency Comment Spec In Lab Samuel Comer MD MICROBIOLOGY - BLOOD ORDERABLES Performing Organization Address City/[facility]/ZIP Co de Phone Number [facility] [place] [address] * Anaerobic Culture (07/22/2022 9:30 PM EDT) Anaerobic Culture No anaerobic organisms isolated [facility] Fluid 07/22/2022 9:30 PM EDT 07/22/2022 9:45 PM EDT Narrative Resulting Agency Comment Spec In Lab Samuel Comer MD MICROBIOLOGY - GENER AL ORDERABLES Performing Organization Address [facility]/ZIP Co de Phone Number [facility] [place] [address] * Body Fluid Culture, Aerobic (07/22/2022 9:30 PM EDT) Body Fluid Culture No growth to date. [facility] Gram Stain Many Neutrophils seen No microorganisms seen. [facility] Fluid 07/22/2022 9:30 PM EDT 07/22/2022 9:45 PM EDT Narrative Resulting Agency Comment Spec In Lab Samuel Comer MD MICROBIOLOGY - GENER AL ORDERABLES Performing Organization Address City/[facility]/ZIP Co de Phone Number [facility] [place] [address] * Cell Count Body Fluid Other (07/22/2022 9:30 PM EDT) Spec Type BF Other [facility] Color BF Red [facility] Appearance BF Clotted [facility] WBC BF Ct Clotted [facility] Comment: Called by: CHARLEY, Read back by: Yarelis Galdamez, Date/Time:07/22/22 21:56. All body fluid results should always be interpreted in light of the total clinical presentation of the patient, including clinical history, data from additional tests and other appropriate information. Polymorph % Clotted % [facility] Comment: Polymorphonuclear cell percent and absolute values may contain Neutrophils, Eosinophils, and Basophils. Body fluid smear will be scanned manually for concordance. Mononuc % Clotted % [facility] Comment: Mononuclear cell percent and absolute values may contain Lymphocytes and Monocytes. Body fluid smear will be scanned manually for concordance. Polymorph BF ABS Clotted /mcl [facility] Comment: Polymorphonuclear cell percent and absolute values may contain Neutrophils, Eosinophils, and Basophils. Body fluid smear will be scanned manually for concordance. Mononuc ABS Clotted /mcl [facility] Comment: Mononuclear cell percent and absolute values may contain Lymphocytes and Monocytes. Body fluid smear will be scanned manually for concordance. Other 07/22/2022 9:30 PM EDT 07/22/2022 9:38 PM EDT Narrative Resulting Agency Comment Spec In Lab Alek Tavares MD BODY FLUIDS AND STOO LS ORDERABLES Performing Organization Address City/[facility]/ZIP Co de Phone Number [facility] [place] [address] * Blood culture (07/22/2022 9:15 PM EDT) Blood Culture No growth at [address] [facility] Blood 07/22/2022 9:15 PM EDT 07/22/2022 9:29 PM EDT Comment:L AC Narrative Resulting Agency Comment Spec In Lab Alke Tavares MD MICROBIOLOGY - BLOOD ORDERABLES Performing Organization Address City/[facility] Co de Phone Number [facility] [place] [phone] * CT Lumbar Spine w Contrast (07/22/2022 7:25 PM EDT) Anatomical Region Laterality Modality L-spine Computed Tomogra phy Impressions 07/22/2022 8:03 PM EDT 1. ??The soft tissue collection about the dislocated right iliac screw is mildly larger. 2. ??The dorsal subcutaneous collection at T12 not significantly changed. 3. ??The dorsal subcutaneous collection at L3 which is associated with soft tissue fullness along the left L2 and L3 lamina is larger. 4. ??Ultrasound may be helpful for further evaluation of these collections. Thank you for letting us participate in the care of this patient. ??If you are a health care provider and have any questions regarding this report, please contact the number below. ??For patients who have questions please contact the health ambulatory care that requested your imaging first. ? Electronically signed by: Jamaal Villafuerte [facility] ([phone]), at 07/22/2022 8:03 PM Narrative 07/22/2022 8:03 PM EDT EXAMINATION: CT LUMBAR SPINE W CONTRAST CLINICAL HISTORY: Low back pain, infection suspected Low back pain, infection suspected TECHNIQUE: CT lumbar spine performed after the intravenous administration of contrast. Administered 60.0 ml of OMNIPAQUE 350.00 mg/ml. COMPARISON: CT lumbar spine 07/03/2022. FINDINGS: Marked lumbar dextroscoliosis with bilateral posterior fusion consisting of pedicle screws and rods at L1-L4 with continuation of the fusion to iliac bone hardware on the left. The right-sided iliac screw is disconnected and does not articulate with the lumbar spinal hardware. Solid posterior osseous fusion. Alignment is unchanged. Irregular soft tissue density collection in the subcutaneous fat about the disconnected right iliac screw and adjacent spinal meredith measures 4.5 cm transverse, 3.1 cm AP and at least 6.1 cm craniocaudal. This compares to 3.6 x 2.5 x 6.0 cm remeasured on the current study. Stable T12/L1 posterior subcutaneous soft tissue collection that abuts the dermis. Another dorsal subcutaneous soft tissue collection at L3 that abuts the skin surface appears larger. Abnormal soft tissue fullness along left-sided lamina and L2 and L3 may be in continuity with soft tissue collections described above, but not significantly changed when compared to prior. Evaluation of spinal canal is significantly marred by the hardware artifact. Procedure Note Jamaal Villafuerte MD - 07/22/2022 EXAMINATION: CT LUMBAR SPINE W CONTRAST CLINICAL HISTORY: Low back pain, infection suspected Low back pain, infection suspected TECHNIQUE: CT lumbar spine performed after the intravenous administration ofcontrast. Administered 60.0 ml of OMNIPAQUE 350.00 mg/ml. COMPARISON: CT lumbar spine 07/03/2022. FINDINGS: Marked lumbar dextroscoliosis with bilateral posterior fusion consistingof pedicle screws and rods at L1-L4 with continuation of the fusion to iliacbone hardware on the left. The right-sided iliac screw is disconnected and doesnot articulate with the lumbar spinal hardware. Solid posterior osseous fusion. Alignment is unchanged. Irregular soft tissue density collection in the subcutaneous fat aboutthe disconnected right iliac screw and adjacent spinal meredith measures 4.5 cm transverse, 3.1 cm AP and at least 6.1 cm craniocaudal. This compares to3.6 x 2.5 x 6.0 cm remeasured on the current study. Stable T12/L1 posterior subcutaneous soft tissue collection that abutsthe dermis. Another dorsal subcutaneous soft tissue collection at L3 that abuts theskin surface appears larger. Abnormal soft tissue fullness along left-sided lamina and L2 and L3 may bein continuity with soft tissue collections described above, but notsignificantly changed when compared to prior. Evaluation of spinal canal is significantly marred by the hardwareartifact. IMPRESSION 1. The soft tissue collection about the dislocated right iliac screw ismildly larger. 2. The dorsal subcutaneous collection at T12 not significantly changed. 3. The dorsal subcutaneous collection at L3 which is associated withsoft tissue fullness along the left L2 and L3 lamina is larger. 4. Ultrasound may be helpful for further evaluation of thesecollections. Thank you for letting us participate in the care of this patient. If youare a health care provider and have any questions regarding this report,please contact the number below. For patients who have questions please contactthe health ambulatory care that requested your imaging first. Electronically signed by: Jamaal Villafuerte [facility]([phone]), at 07/22/2022 8:03 PM Marie Telles MD IMG CT ORDERABLES * Differential, Automated (07/22/2022 7:12 PM EDT) Neutrophils % 53.7 % [facility] Neutr Abs (ANC) 3.01 1.70 - 6.10 x10(3)/[facility] Lymphocytes % 37.4 % [facility] Lymphocytes Abs 2.1 0.9 - 3.2 x10(3)/[facility] Monocytes % 6.2 % [facility] Monocyte Abs 0.4 0.3 - 0.9 x10(3)/[facility] Eosinophils % 1.4 % [facility] Eosinophils Abs 0.1 0.0 - 0.4 x10(3)/[facility] Basophils % 1.1 % [facility] Basophils Abs 0.1 0.0 - 0.1 x10(3)/[facility] Immature Gran % 0.20 % [facility] Comment: Immature granulocytes(IG's)percentage and absolute count will include metamyelocytes, myelocytes, and promyelocytes. Blood smears from CBCs yielding IG's will be scanned manually for concordance. If this scan disagrees with the automated IG or if promyelocytes are noted, a manual differential will be performed. Debora Gran Abs 0.01 0.00 - 0.04 x10(3)/[facility] Blood 07/22/2022 7:12 PM EDT 07/22/2022 7:21 PM EDT Narrative Resulting Agency Comment Spec In Lab Phyllis SIMMS HEMATOLOGY ORDERABLE S [facility] [place] [address] * (ABNORMAL) Hemogram (07/22/2022 7:12 PM EDT) WBC 5.6 4.0 - 9.5 x10(3)/[facility] RBC 4.58 4.00 - 5.21 x10(6)/[facility] Hemoglobin 11.2(L) 11.7 - 15.5 g/dL [facility] Hematocrit 36.2 35.7 - 45.8 % [facility] MCV 79.0(L) 82.6 - 94.4 [facility] MCH 24.5(L) 27.1 - 32.[address] [facility] MCHC 30.9(L) 31.7 - 35.0 g/dL [facility] Platelets 449(H) 145 - 357 x10(3)/[facility] RDWSD 52.9(H) 37.0 - 46.0 [facility] RDWCV 18.3(H) 11.5 - 14.1 % [facility] MPV 9.2 7.6 - 12.9 [facility] nRBC % Auto 0.0 % [facility] nRBC Abs Auto 0.000 0.000 - 0.000 x10(3)/[facility] Blood 07/22/2022 7:12 PM EDT 07/22/2022 7:21 PM EDT Narrative Resulting Agency Comment Spec In Lab Phyllis SIMMS HEMATOLOGY ORDERABLE S [facility] [place] [address] * (ABNORMAL) CRP, acute inflammation (07/22/2022 7:12 PM EDT) CRP 48.9(H) <=4.9 mg/L [facility] Blood 07/22/2022 7:12 PM EDT 07/22/2022 7:21 PM EDT Narrative Resulting Agency Comment Spec In Lab Amarilis Carcamo DO CHEMISTRY O RDERABLES [facility] [place] [address] * (ABNORMAL) Sedimentation rate (07/22/2022 7:12 PM EDT) Sed Rate >119(H) 2 - 37 mm/hr [facility] Comment: Effective April 06, 2019 new capillary photometric technology has resulted in a change in reference ranges. It is recommended that each ESR result be reviewed with its own age appropriate reference range. Blood 07/22/2022 7:12 PM EDT 07/22/2022 7:21 PM EDT Narrative Resulting Agency Comment Spec In Lab Amarilis Carcamo DO HEMATOLOGY ORDERABLES [facility] [place] [address] * (ABNORMAL) Basic Metabolic Panel (non-fasting) (07/22/2022 7:12 PM EDT) [facility] Glucose Lvl 99 65 - 199 mg/dL [facility] Comment:Diabetes: >=200 mg/d L plus symptoms BUN 10 8 - 18 mg/dL [facility] Creatinine 0.34(L) 0.70 - 1.20 mg/dL [facility] Sodium 139 135 - 145 mmol/L [facility] Potassium 3.8 3.5 - 5.0 mmol/L [facility] Comment: Please note: ??Patients with WBC >100,000 may have falsely elevated Potassium levels. ??For accurate Potassium quantification in these patients send serum separator tube (gold top) for subsequent determinations. ??Contact the Clinical Chemistry Laboratory if there are any questions. Chloride 103 98 - 107 mmol/L [facility] CO2 26 22 - 31 mmol/L [facility] Anion Gap 10 5 - 15 mmol/L [facility] Calcium 9.4 8.5 - 10.5 mg/dL [facility] Estimated GFR 143 >=60 mL/min/1. 73 m?? [facility] Comment: This patient's estimated GFR [...] and symptoms in addition to eGFR. Blood 07/22/2022 7:12 PM EDT 07/22/2022 7:21 PM EDT Narrative Resulting Agency Comment Spec In Lab Marie Telles MD CHEMISTRY ORDERABLES [facility] [place] [address] documented in this encounter Visit Diagnoses Diagnosis Abscess- Primary Cellulitis and abscess of unspecified site 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 Acute osteomyelitis, other specified site QT prolongation Nonspecific abnormal electrocardiogram (ECG) (EKG) Abscess Cellulitis and abscess of unspecified site [...] Oral, EVERY 6 HOURS PRN, Starting on Thu07/22/22 at 2204, Until Thu08/01/22 at 1912, Pain, Fever, Administer for temperature greater than or equal to 38.2 degrees celsius. Maximum daily dose of acetaminophen from all sources not to exceed 4,000 mg. When ordered for pain, acetaminophen should be given even when other ordered pain medications are indicated., Routine Given 07/28/2022 10:22 PM EDT 650 mg baclofen (Lioresal) tablet 10 mg 10 mg, Oral, ONCE, 1 dose, On Thu07/22/22 at 2134, Routine Given 07/22/2022 9:34 PM EDT 10 mg baclofen (Lioresal) tablet 10 mg 10 mg, Oral, 2 TIMES DAILY, First dose on Thu07/23/22 at 0900, Until Discontinued, Routine Given 08/01/2022 8:18 AM EDT 10 mg Given 07/31/2022 9:06 PM EDT 10 mg Given 07/31/2022 8:57 AM EDT 10 mg cefTRIAXone (Rocephin) 1 g vial attach to sodium chloride 0.9% 50 mL Mini-Bag Plus 1 g, Intravenous, EVERY 24 HOURS, First dose on Thu07/22/22 at 2200, Until Discontinued, Administer over 30 Minutes, Indication for (Active or Suspected): Skin/Skin Structure New Bag 07/22/2022 10:22 PM EDT 1 g 100 mL/hr enoxaparin (Lovenox) (30 mg/0.3 mL) subcutaneous injection 30 mg 30 mg, Subcutaneous, NIGHTLY, First dose on Thu07/22/22 at 2206, Until Discontinued, Routine Given 07/31/2022 9:06 PM EDT 30 mg Given 07/30/2022 8:29 PM EDT 30 mg Given 07/29/2022 8:20 PM EDT 30 mg ibuprofen (Motrin) tablet 200 mg 200 mg, Oral, EVERY 8 HOURS PRN, Starting on Thu07/29/22 at 0130, Until Thu08/01/22 at 1912, Pain, Administer orally with milk or food to minimize GI irritation. Maximum dose of 3,200 mg from all sources in 24 hours, Routine Given 07/29/2022 8:13 AM EDT 200 mg iohexoL (Omnipaque) (350 mg/mL) solution 0-200 mL 0-200 mL, Intravenous, ONCE PRN, 1 dose, Starting on Thu07/22/22 at 1916, Until Thu07/22/22 at 1921, Per Protocol, Warning Vesicant/Irritant Medication , Radiology Contrast, Routine Given 07/22/2022 7:21 PM EDT 60 mLs iohexoL (Omnipaque) (350 mg/mL) solution 0-200 mL 0-200 mL, Intravenous, ONCE PRN, 1 dose, Starting on Thu07/28/22 at 1129, Until Thu07/28/22 at 1129, Per Protocol, Warning Vesicant/Irritant Medication , Radiology Contrast, Routine Given 07/28/2022 11:29 AM EDT 65 mLs lactated Ringers 1,000 mL IV bolus Intravenous, ONCE, 1 dose, On Thu07/23/22 at 0648 07/23/2022 6:48 AM EDT lactated Ringers 1,000 mL IV bolus at 250 mL/hr, Intravenous, ONCE, 1 dose, On Thu07/27/22 at 0245 New Bag 07/27/2022 2:12 AM EDT 250 mL/hr lactated Ringers 1,000 mL IV bolus at 100 mL/hr, Intravenous, ONCE, 1 dose, On Thu07/27/22 at 2145 New Bag 07/27/2022 9:36 PM EDT 100 mL/hr lactated ringers infusion 100 mL/hr, Intravenous, CONTINUOUS, Starting on Thu07/23/22 at 1110, Until Thu07/24/22 at 1109 07/24/2022 5:00 AM EDT 100 mL/hr 100 mL/hr Rate/Dose Change 07/24/2022 12:54 AM EDT 100 mL/hr 100 mL /hr 07/23/2022 12:44 PM EDT 50 mL/hr 50 mL/hr lactated ringers infusion 100 mL/hr, Intravenous, CONTINUOUS, Starting on Thu07/28/22 at 1245, Until Thu07/29/22 at 0344 07/28/2022 10:12 PM EDT 100 mL/hr 100 mL/hr 07/28/2022 12:00 PM EDT 100 mL/hr 100 mL/hr levoFLOXacin (Levaquin) tablet 750 mg 750 mg, Oral, EVERY MORNING, First dose (after last modification) on Thu07/23/22 at 1700, Until Discontinued, Routine, Indication for (Active or Suspected): Bone/Joint, Restricted Antibiotic: Please indicate the most appropriate choice: ID Approval by Sergey Aguirre Given 08/01/2022 8:18 AM EDT 750 mg Given 07/31/2022 8:57 AM EDT 750 mg Given 07/30/2022 8:19 AM EDT 750 mg lidocaine (Lidoderm) 5% patch 1 patch 1 patch, Transdermal, Administer over 12 Hours, DAILY, First dose on Thu07/29/22 at 0900, Until Discontinued, Apply patch(es) for 12 hours, and then remove for 12 hours. Apply near drains, Routine Patch Applied 08/01/2022 8:17 AM EDT 1 patch 08- Back Lower (Right) Patch Applied 07/31/2022 8:58 AM EDT 1 patch 08- Back Lower (Right) Patch Applied 07/30/2022 8:20 AM EDT 1 patch 07- Back Lower (Left) lidocaine (Xylocaine) 1% (10 mg/mL) injection 10 mg 10 mg, Subcutaneous, ONCE, 1 dose, On Dianne 07/24/22 at 1500, For use in Interventional Radiology (IR) only for procedure with direct provider supervision and verbal order., Angio/IR (Intra-Procedure), Routine Given 07/24/2022 3:21 PM EDT 10 mg lidocaine-EPINEPHrine (1% - 1:100,000) injection 10 mL 10 mL, Intra-articular, ONCE, 1 dose, On 07/22/22 at 2111, Warning Vesicant/Irritant Medication , Routine Given 07/22/2022 9:11 PM EDT 10 mLs magnesium sulfate 2 g in sterile water 50 mL infusion 2 g, Intravenous, ONCE, 1 dose, On 07/29/22 at 0130, Administer over 120 Minutes New Bag 07/29/2022 1:49 AM EDT 2 g 25 mL/hr midazolam (pf) (Versed) (1 mg/mL) multi-dose injection 0.5-1 mg 0.5-1 mg, Intravenous, EVERY 3 MIN PRN, Starting on Dianne 07/24/22 at 1412, Until Dianne 07/24/22 at 1616, Sedation, For use in Interventional Radiology (IR) [...] mg/dose, 5 mg/hour., Angio/IR (Intra-Procedure), Routine Given 07/24/2022 3:43 PM EDT 0.5 mg Given 07/24/2022 3:30 PM EDT 0.5 mg Given 07/24/2022 3:20 PM EDT 0.5 mg polyethylene glycoL (Miralax) packet 17 g 17 g, Oral, DAILY, First dose on Thu07/23/22 at 0900, Until Discontinued, Routine Given 07/31/2022 8:59 AM EDT 17 g Given 07/30/2022 8:19 AM EDT 17 g Given 07/29/2022 8:14 AM EDT 17 g senna (Senokot) tablet 17.2 mg 17.2 mg, Oral, NIGHTLY, First dose on Thu07/22/22 at 2207, Until Discontinued, Routine Given 07/31/2022 9:06 PM EDT 17.2 mg Given 07/30/2022 8:30 PM EDT 17.2 mg Given 07/29/2022 8:17 PM EDT 17.2 mg senna-docusate (Pericolace) 8.6-50 mg per tablet 2 tablet 2 tablet, Oral, 2 TIMES DAILY, First dose on Thu07/22/22 at 2206, Until Discontinued, Routine Given 07/31/2022 9:06 PM EDT 2 tablets Given 07/31/2022 8:59 AM EDT 2 tablets Given 07/30/2022 8:30 PM EDT 2 tablets sodium chloride 0.9 % (flush) (BD PosiFlush Normal Saline 0.9) flush 5 mL 5 mL, Intravenous, 2 TIMES DAILY, First dose on Thu07/22/22 at 2206, Until Discontinued, Routine Given 08/01/2022 8:18 AM EDT 5 mLs Given 07/31/2022 9:06 PM EDT 5 mLs Given 07/31/2022 8:58 AM EDT 5 mLs documented in this encounter Active and Recently Administered Medications Times are shown in EDT. Scheduled Medication Order 07/30/2022 07/31/2022 08/01/2022 baclofen (Lioresal) tablet 10 mg 10 mg, Oral, 2 TIMES DAILY, First dose on Thu07/23/22 at 0900, Until Discontinued, Routine 818 (Given - Provider: Frankie Hair RN)2028 (Given - Provider: Paige Gonzalez RN) 0857 (Given - Provider: Jimbo Willams RN)2106 (Given - Provider: Yandy Masters RN) 0818 (Given - Provider: Jimbo Willams RN) enoxaparin (Lovenox) (30 mg/0.3 mL) subcutaneous injection 30 mg 30 mg, Subcutaneous, NIGHTLY, First dose on Thu07/22/22 at 2206, Until Discontinued, Routine 2028 (Given - Provider: Paige Gonzalez RN) 2105 (Given - Provider: Yandy Masters RN) levoFLOXacin (Levaquin) tablet 750 mg 750 mg, Oral, EVERY MORNING, First dose (after last modification) on Thu07/23/22 at 1700, Until Discontinued, Routine, Indication for (Active or Suspected): Bone/Joint, Restricted Antibiotic: Please indicate the most appropriate choice: ID Approval by Sergey Aguirre 0819 (Given - Provider: Frankie Hair RN) 0857 (Given - Provider: Jimbo Willams RN) 0818 (Given - Provider: Jimbo Willams RN) lidocaine (Lidoderm) 5% patch 1 patch 1 patch, Transdermal, Administer over 12 Hours, DAILY, First dose on Thu07/29/22 at 0900, Until Discontinued, Apply patch(es) for 12 hours, and then remove for 12 hours. Apply near drains, Routine 08 (Patch Applied - Provider: Frankie Hair RN)2019 (Patch Removed - Provider: Paige Gonzalez RN) 0858 (Patch Applied - Provider: Jimbo Willams RN)2057 (Patch Removed - Provider: Yandy Masters RN) 08 (Patch Applied - Provider: Jimbo Willams RN)2016 (Due: Patch Removed - Provider: Jimbo Willams RN) polyethylene glycoL (Miralax) packet 17 g 17 g, Oral, DAILY, First dose on Thu07/23/22 at 0900, Until Discontinued, Routine 818 (Given - Provider: Frankie Hair RN) 0859 (Given - Provider: Jimbo Willams RN) 0900 (Not Given - Provider: Jimbo Willams RN - Reason: Patient/family refused) senna (Senokot) tablet 17.2 mg 17.2 mg, Oral, NIGHTLY, First dose on Thu07/22/22 at 2207, Until Discontinued, Routine 2029 (Given - Provider: Paige Gonzalez RN) 210 (Given - Provider: Yandy Masters RN) senna-docusate (Pericolace) 8.6-50 mg per tablet 2 tablet 2 tablet, Oral, 2 TIMES DAILY, First dose on Thu07/22/22 at 2206, Until Discontinued, Routine 0819 (Given - Provider: Frankie Hair RN)2029 (Given - Provider: Paige Gonzalez RN) 0859 (Given - Provider: Jimbo Willams RN)210 (Given - Provider: Yandy Masters RN) 0900 (Not Given - Provider: Jimbo Willams RN - Reason: Patient/family refused) sodium chloride 0.9 % (flush) (BD PosiFlush Normal Saline 0.9) flush 5 mL 5 mL, Intravenous, 2 TIMES DAILY, First dose on Thu07/22/22 at 2206, Until Discontinued, Routine 0820 (Given - Provider: Frankie Hair RN)2029 (Given - Provider: Paige Gonzalez RN) 0858 (Given - Provider: Jimbo Willams RN)2105 (Given - Provider: Yandy Masters RN) 0818 (Given - Provider: Jimbo Willams RN) PRN Medication Order 07/30/2022 07/31/2022 08/01/2022 acetaminophen (Tylenol) tablet 650 mg 650 mg, Oral, EVERY 6 HOURS PRN, Starting on Thu07/22/22 at 2204, Until Thu08/01/22 at 1912, Pain, Fever, Administer for temperature greater than or equal to 38.2 degrees celsius. Maximum daily dose of acetaminophen from all sources not to exceed 4,000 mg. When ordered for pain, acetaminophen should be given even when other ordered pain medications are indicated., Routine ibuprofen (Motrin) tablet 200 mg 200 mg, Oral, EVERY 8 HOURS PRN, Starting on Thu07/29/22 at 0130, Until Thu08/01/22 at 1912, Pain, Administer orally with milk or food to minimize GI irritation. Maximum dose of 3,200 mg from all sources in 24 hours, Routine lidocaine (Xylocaine) 1% (10 mg/mL) injection 3 mg 3 mg (0.3 mL), Subcutaneous, ONCE PRN, 1 dose, Starting on Thu07/22/22 at 2204, Until Thu08/01/22 at 191, for discomfort with PIV insertion, Routine sodium chloride 0.9 % (flush) (BD PosiFlush Normal Saline 0.9) flush 5-20 mL 5-20 mL, Intravenous, EVERY 1 MIN PRN, Starting on Thu07/22/22 at 2204, Until Thu08/01/22 at 191, flush, Flush pertains to all indwelling lines. Flush per protocol found in the job aid using the link provided on this medication record., Routine documented in this encounter Additional Health Concerns Infection Onset Date Last Indicated Resolved Time Rule Out COVID-19 07/28/2022 07/29/2022 07/29/2022 12:36 AM EDT Rule Out COVID-19 07/28/2022 07/28/2022 07/29/2022 2:25 AM EDT Enterovirus / Rhinovirus 07/28/2022 07/28/2022 8:09 PM EDT Rule Out Respiratory 07/29/2022 07/29/2022 023 2:25 AM EDT documented as of this encounter Care Teams [employer] Relationship Specialty Start Date End Date Lorna Bal APRN [address] [place] [address] PCP - General Family Medicine 05/27/18 documented as of this encounter
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
--- OUTSIDE RECORDS SUMMARY | 2023-11-09 18:15 | XMS_ITS | Encounter Summary ---
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, SEQUEIA/ACQUIRED DYSPLASIA OF HIP Procedures PRO ANESTH, CAT/MRI SCAN, RADIATN THERAPY BONE SCAN Referral ID Status Reason Start Date Expiration Date Visits Re quested Visits Authorized [id number] 1 1 Encounter Details Date Type Department Care Team (Late st Contact Info) Description 12/30/2016 3:00 PM EDT - 12/30/2016 4:28 [place] [address] RESOURCE, ANESTHESIA-KRISTIN None BONE SCAN Social History Tobacco Use Types Packs/Day Years [...] Sign Reading Time Taken Comments Blood Pressure 114/91 12/30/2016 4:30 PM EDT Pulse 99 12/30/2016 4:30 PM EDT Temperature 36.2 ??C (97.2 ??F) 12/30/2016 4:08 PM ED T Respiratory Rate 16 12/30/2016 4:30 PM EDT Oxygen Saturation 99% 12/30/2016 4:30 PM EDT Inhaled Oxygen Concentration - - Weight 52.2 kg (115 lb 1.3 oz) 12/30/2016 1:49 P M EDT Height - - Body Mass Index 21.05 11/24/2016 1:33 PM EDT documented in this encounter Discharge Instructions * Discharge Instructions* Dana Antonio RN - 12/30/2016 4:50 PM EDT POST ANESTHESIA INSTRUCTIONS Go home, rest, use caution on stairs. Change positions slowly. Do not smoke if you are alone. Diet light to regular as tolerated today. If nausea occurs start with clear liquids and progress slowly. No driving, operating machinery, alcoholic beverages and no important decisions for 24 hours. Monitor IV site for signs and symptoms of infection: increasing redness, swelling, foul drainage, if occurs contact M.D. Patients who have had endotrachial tubes (this tube, used by anesthesia department, is passed down your throat after you are asleep, to ensure safe air passage during your operation). A sore throat is normal due to the tube. Cold liquids or soothing lozenges will help ease the discomfort. The generalized muscle aches are due to the medication given to you just before the tube is inserted. As the medication wears off, you may develop muscle soreness, which usually goes away in 12-24 hours. documented in this encounter Medications at Time of Discharge Medication Sig Dispensed Refills Start Date End Date baclofen (LIORESAL) 10 mg TabletIndications:Trauma tic brain injury, without LOC, sequela,Acquired dysplasia of hip, unspecified laterality,Spasticity,Ne uromuscular scoliosis of lumbar region Take 1 tablet by mouth 2 times daily. 180 tablet 11/24/2016 06/24/2022 levonorgestrel-ethinyl estradiol (INTROVALE) 0.15-30 mg-mcg per tablet Take 1 tablet by mouth daily. 03/18/2019 POLYETHYLENE GLYCOL 3350 (MIRALAX ORAL) Take 17 g by mouth as needed. 11/20/2010 07/09/2022 documented as of this encounter Progress Notes * Dana Antonio RN - 12/30/2016 4:54 PM EDT 16:50- discharge instructions discussed with mother and family. Family aware that patient had a catheter during the case. (patient is incontinent). Family aware that if patient down not void by this evening to call for instructions. Family states that they are aware and that the patient has had a catheter in the past and they know to watch for urine output. 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 I paged at 12:17; person answering says very busy; Kyie now second need on the list; someone will be coming. IV inserted left forearm 1320- paged IR at 1320 Tracer injection given by IR at 1325 Told us to send patient to radiology at 1530. Rdz attempt x 2; first unsuccessful; second successfully inserted and placed at 12:30; patent andflowing pale yellow urine. Patient received sedation in SDP; left for Nuclear Medicine by stretcher with anesthesiologists at ~3:30. Anesthesia expects procedure to last about [address] Fregoso documented in this encounter Plan of Treatment Upcoming Encounters Date Type Department Care Team (Late st Contact Info) Description 11/19/2023 2:30 PM EDT TH Visit (TeleHealth) [place] [address] Lilli Joy APRN [facility] [place] [address] 11/30/2023 12:50 PM EDT [place]oint[place] [address] 12/03/2023 12:30 PM EDT Office [place] [address] Hollie Ambriz MD [facility] [place] [address] documented as of this encounter Procedures Procedure Name Priority Date/Time Associated Diagnosis Comments BONE SCAN 12/30/2016 11:00 PM EDT TBI, 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
--- OUTSIDE RECORDS SUMMARY | 2023-11-09 18:15 | XMS_ITS | Encounter Summary ---
Author Organization Formerly [facility] Address [facility] [place] [address] Care Team Providers Care Supervisor Opening And Picking Name Role Phone Lorna Bal APRN Primary Care Provider [phone] Reason for Referral * Home Health Care (Routine) - Closed Specialty Diagnoses / Procedures Referred By Contac t Referred To Contact Diagnoses [place] [address] [facility] & [address] [place] [address] Referral ID Status Reason Start Date Expiration Date V isits Requested Visits Authorized [id number] Closed Consult, Test & Treat 07/09/2022 01/05/2023 999 999 Reason for Visit * Reason Comments Surgical Post Op * Auth/Cert (Routine) Specialty Diagnoses / Procedures Referred By Contac t Referred To Contact Diagnoses 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 Procedures EMERGENCY GABI Eddi Váz[place] [address] [facility] Referral ID Status Reason Start Date Expiration Date Visits Re quested Visits Authorized [id number] 1 1 Encounter Details Date Type Department Care Team (Latest Contact Info) Description 06/24/2022 2:05 PM EST - 07/09/2022 10:29 AM EDT Hospital Encounter Medical Specialites Unit Level 1 [place] [id number] Eddi Váz[place] [address] [place] [address] [place] [address] [place] [address] [place] [address] 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; Tachycardia; Bacteremia Discharge Disposition: Home with VNA Social History [...] Sign Reading Time Taken Comments Blood Pressure 112/78 07/09/2022 5:06 AM EDT Pulse 81 07/05/2022 2:11 PM EST Temperature 36.9 ??C (98.4 ??F) 07/09/2022 5:06 AM ED T Respiratory Rate 16 07/09/2022 5:06 AM EDT Oxygen Saturation 96% 07/09/2022 5:06 AM EDT Inhaled Oxygen Concentration - - Weight 49 kg (108 lb) 06/24/2022 1:17 PM EST Height 157.5 cm (5' 2) 06/24/2022 1:17 PM EST Body Mass Index 19.75 06/24/2022 1:17 PM EST documented in this encounter Discharge Summaries * Hollie Perez MD - 07/09/2022 9:59 AM EDT Discharge Summary Patient Name: Tana Shelton Patient Age: 27 y.o. Language: Thai Race: White Ethnicity: Not nor Admit date: 06/24/2022 Discharge date and time: 07/09/2022 12:37 PM Attending Physician: Hollie Perez Discharge Physician: Hollie Perez MD Follow-up Recommendations for Providers: 1. She is being treated for 6 weeks with Levaquin for EColi bacteremia with fluid collections in back per ID. Ends 08/17. Weekly labs with CBC, CMP, CRP. 2. Will need ID follow-up and repeat CT of back before completing antibiotics 3. Fluid cultures did not have organisms on gram stain or growth but had been on antibiotics. Not clear if truly infected but decision to treat for 6 weeks in setting of EColi bacteremia and fluid collections. 4. Consider outpatient GI evaluation with anorectal thickening on CT that may be source of EColi bacteremia/translocation. May be from some chronic constipation. Not having abdominal or rectal pain. Inpatient Provider Contact Information: For questions regarding this document or issues relating to this hospitalization on the Medical Service, please contact your inpatient physician through the [facility] [employer] . Issues afterhours and on weekends will be handled by the Hospitalist staff on-call. Discharge Diagnoses (Hospital Problems) and Secondary Diagnoses (Chronic Problems): Active Hospital Problems Diagnosis ??? 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 Resolved Hospital Problems No resolved problems to display. Active Non-Hospital Problems Diagnosis ??? Fracture of femur, distal ??? Contracture of elbow ??? Right leg pain ??? Presence of intrathecal baclofen pump ??? Spasticity ??? Scoliosis ??? Edema leg ??? Acquired dysplasia of hip, bilateral ??? 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 She was evaluated by her PCP and was given Keflex with some improvement however on 06/17 she was brought to [facility] by her corrugator for possibly increased back pain and received IV antibiotics for presumed cellulitis. No evidence of draining wounds or areas was seen at that time and the patientwas not septic. Radiographs did not demonstrate evidence of hardware loosening, a US was performed which showed a 8x9mm subcutaneous fluid collection and was evaluated by orthopedics there who did not recommend aspiration. Subsequently discharged on oral antibiotics, however PCP referred them to for further evaluation. The caregiver states that she has noticed increased redness over the last few days. ?? In the ED temp was 36.1, BP 93/79, sat 100% on room air. Labs with normal WBC at 6.8. BMP unremarkable. CRP elevated at 96.9 versus 7.5 previously, ESR 119. Further evaluation with CT imaging showed 2 irregular fluid collections within the posterior subcutaneous fat at the lumbar region with possible deep extension to the level of L1 and L2 lamina on the left side. Denser soft tissue collection around the dislocated right iliac screw likely chronic organized hematoma. She was evaluated by spinesurgery with recommendations for IR guided aspiration and drainage tomorrow. Holding antibiotics for better yield till then Hospital Course: #Possible spinal abscess/Back cellulitis: Tana was admitted with ncreasing redness and tenderness over the midline surgical scar on the backfor several weeks. She had been treated as cellulitis as an outpatient with keflex then cefepime vanc for 3 days at OSH and discharge on cefpodoxime - referred to for further management. ??CT showed two irregular fluid collections within the posterior subcutaneous fat at the lumbar region with possible deep extension to the level of L1 and L2 lamina on the left side. Concern for abscess formation due to discomfort and overlying redness over previous spinal surgery incision on presentation. IR aspiration on 06/25with CARMELLA drain left in place in inferior collection. Superior collection appeared like old blood, while inferior collection appeared purulent. ??Denser soft tissue collection around the dislocated right iliac screw likely chronic organized hematoma. ??Neutrophils seen but gram stain negative Cultures from her drain has remained no growth to date. Drain removed on 07/01. Not clear if these are sterile fluid collections or if affected by prior antibiotics. Repeat CT in setting of fevers showed persistent fluid collection with possible extension to gluteal muscles and drain placedby IR 07/04 (not able to aspirate fluid - ?granulation tissue). No output from drain and removed on 07/08. Plan for antibiotics as below. #EColi bacteremia #Sepsis with episodic tachycardia/relative hypotension, LA 2.6, fever #Hypotension - resolved Tana developed fever on 07/04, with lactic acidosis to 2.6, relative hypotension. . Blood cultures then returned positive with EColi 04/28. UA unrevealing. Fluid culture from 06/25 remained negative withnegative gram stain thus not clear if fluid collections related to EColi or if alternate source. CT A/P to further evaluate for possible GI source with some anorectal thickening that could be source/translocate. Fluid cultures from aspiration on 06/25 no growth and negative gram stain thus less clear that EColi related to fluid collections (had been on antibiotics prior). Repeat blood cultures have been negative. In discussion with ID, not clear if fluid collections related to EColi but given that persist and with hardward, decision to treat for 6 weeks of antibiotics targeting EColi with Levaquin through 08/17. These possible spinal abscesses are not due to a complication of a dislocated iliac screw/ hardware. Will need ID follow-up with repeat CT spine prior to stopping antibiotics. Requested [facility]NA for the weekly lab draws. CRP improved from 96 to 16.8 on discharge. ?? 2. Parainfluenza infection: Supportive care. Not having cough or symptoms at discharge. 3. TBI with spastic quadraplegia/Cerebral palsy/Scoliosis: Continued home baclofen 10mg PO BID. ?? RESOLVED PROBLEMS: Vital Signs at Discharge: BP: 112/78, Heart Rate: 81, Temp: 36.9 ??C (98.4 ??F), Resp: 16, BMI (Calculated): 19.75 Height: 157.5 cm (5' 2) (06/24/22 131) Weight: 49 kg (108 lb) (06/24/221316) Functional and Cognitive Status: Non verbal but awake and alert Important Studies and Lab Data: Labs: Last 3 wbc, hgb, hct plt Recent Labs 07/09/22 0355 07/08/22 0548 07/07/22 0341 WBC 6.8 5.3 3.8* HGB 8.8* 8.4* 7.6* HCT 28.1* 27.2* 25.5* PLATELET 386* 336 281 Last 3 Lytes Recent Labs 07/09/22 03507/08/22 0548 07/07/22 0341 NA 139 140 141 K 4.2 3.8 3.7 CL 104 105 110* CO2 BUN 8 6* 5* CREATININE 0.26* 0.24* 0.23* Last 3 LFTs Recent Labs 07/07/22 0341 07/06/22 0621 07/05/22 0531 AST 20 25 39* ALT 42* 57* 74* ALKPHOS 177* 199* 209* BILITOT <0.2* 0.3 0.4 BILIDIR <0.1 0.1 0.1 Last Ca, Mg, Phos Recent Labs 07/09/22354 CALCIUM 9.1 Last 3 Coags No results for input(s): PT, INR, PTT in the last 168 hours. Last 3 ProBNP, Trop, CK No results for input(s): CK, TROPONINT, PROBNP in the last 168 hours. Last 3 TFT Recent Labs 07/02/22 0615 06/29/22 0558 TSH 1.45 1.84 Last 3 Lipids No results for input(s): CHLPL, HDL, LDLCHOL, LDLDIRECT, TRIG in the last 7068 hours. Last 3 HgbA1C No results for input(s): HA1C in the last 7068 hours. Last CRP, SEDRATE Recent Labs 07/08/22 0548 07/03/22 2305 07/03/22 1008 CRP 16.8* < > -- SEDRATE -- -- 110* < > = values in this interval not displayed. Fluid Culture: (1512 inferior collection, 1511 superior collection) Recent Labs 07/03/22 2305 ORGANISM Escherichia coli* Gram Negative Rods* Anaerobic culture: (1512 inferior collection, 1511 superior collection) No results for input(s): LABANAE in the last 168 hours. Studies: Results for orders placed or performed during the hospital encounter of 06/24/22 CT Lumbar Spine w Contrast (Exam End: 06/24/2022 6:27 PM) Narrative EXAMINATION: CT LUMBAR SPINE W CONTRAST CLINICAL HISTORY: Low back pain, infection suspected; Patient had ultrasound done at outside facility on 06/17/2022 which showed a fluid collection around the L-spine could not rule out abscess TECHNIQUE: CT lumbar spine performed after the intravenous administration of contrast. Administered 65.0 ml of OMNIPAQUE 350.00 mg/ml. COMPARISON: Neck ultrasound dated 06/19/2022. CT lumbar spine 05/26/2014. Lumbar spine x-ray 06/17/2022. FINDINGS: Severe dextroscoliosis of the lumbar spine is again identified with rods and screws. Pedicle screws at L1-L4 again identified. As seen previously the metallic hardware is intact with the exception of the dislocated screw traversing the right iliac bone. Laminar wires identified within the visualized lower thoracic spine. Irregular low-density collection within the left paramedian, posterior subcutaneous fat of the mid lumbar region likely corresponds to the collection identified on the recent ultrasound. This collection extends to the skin surface and measures 4.9 cm AP, 3.2 cm transverse and 6.0 cm craniocaudal. Deep extension is not identified. Minimal rim enhancement. There is a second, more superior collection within the left paramedian posterior subcutaneous fat at T12-L1 level that may communicate with the collection described above. This collection appears to have deep extension to the level of the left L1 and L2 lamina, but evaluation is marred by hardware artifact. This collection also appears to extend to the skin surface as identified on series 5, image 60. Minimal rim enhancement. A separate, denser soft tissue collection centered about the dislocated right iliac screw was likely present previously but better visualized on the current study. This finding is identified on series 5, image 127 through 158. Impression There are 2 irregular collections within the posterior subcutaneous fat of the lumbar region. The more superior collection appears to have deep extension to the level of the L1 and L2 lamina on the left side, but evaluation is marred by artifact. Findings are nonspecific, but infected collection is a possibility. Denser soft tissue collection centered about the dislocated right iliac screw was present on prior study but better visualized on current study. This may represent a chronic organized hematoma. Thank you for letting us participate in the care of this patient. If you are a health care provider and have any questions regarding this report, please contact the number below. For patients who have questions please contact the health critical care specialist that requested your imaging first. Electronically signed by: Jamaal Villafuerte [facility] ([phone]), at 06/24/2022 6:56 PM IR All Drainage Procedures (Exam End: 06/25/2022 4:45 PM) Narrative Preoperative Diagnosis: Paraspinal fluid collections, possible abscess. Postoperative Diagnosis: Superior collection appears to be old blood. The more inferior collection drained purulent material, and a drain was placed. Procedure Performed: Ultrasound-guided aspiration of superior paraspinal fluid collection. Ultrasound-guided aspiration and drain placement of more inferior paraspinal fluid collection. Operators: Mich Martino MD, Attending Estimated Blood Loss: Less than 25 cc. Fluoroscopy time: Please see [facility] IR technologist record for procedural dose/time. Cefazolin/ cefuroxime was not ordered for antimicrobial prophylaxis as it is not indicated or strongly backed by the medical literature. Anesthesia: 1. Conscious sedation with titrated Versed during continuous hemodynamic monitoring including pulse oximetry, heart rate and blood pressure was provided by an independent qualified trained Nurse. I was present during the intraservice time as documented by the IR Nurse. Please see nursing notes for exact medication dosages. 2. 1% lidocaine, local. The risks, benefits, and alternatives to the procedure were explained to the patient's family, who then gave written consent which was placed in the chart. The patient could not give informed consent at this time due to current medical condition. Appropriate time-out was performed prior to the procedure. Description of Procedure: All elements of maximal sterile barrier technique were met including cap, mask, sterile gown, sterile gloves, large sterile sheet, hand hygiene and 2% chlorhexidine for cutaneous antisepsis. The lumbar region was prepped and draped in the usual sterile fashion. Local anesthetic was administered. Using ultrasound guidance, an 18-gauge needle was advanced into the superior paraspinal fluid collection. Only a very small amount of liquid could be aspirated and appeared to be old blood. This was sent for labs. Using ultrasound guidance, an 18-gauge needle was advanced into the more inferior paraspinal fluid collection. This demonstrated shiraz pus, a sample of which was sent for Gram stain and culture. A stiff wire was then advanced into this collection, and the needle was removed over the wire. The tract was dilated, and an 8 Italian drain was advanced over the wire into the fluid collection. This drain was sutured into position. The drain was attached to bulb suction. The patient tolerated the procedure well. Findings: The more superior paraspinal collection appears to be old blood. The more inferior collection appeared purulent, and a drain was placed. Impression: Uneventful aspiration of more superior paraspinal fluid collection. The inferior collection aspiration demonstrated shiraz pus, and an 8 Italian drain was placed using ultrasound guidance as above. I, the attending Interventional Radiologist performed the entire procedure. IR Drain Check/Change/Remove (Exam End: 07/01/2022 3:35 PM) Narrative INTERVENTIONAL RADIOLOGY PROCEDURE NOTE Procedure: Paraspinal Drainage Catheter Evaluation and Removal Indication for Procedure: Paraspinal drainage catheter in situ. Minimal output. Tana Shelton is a 27 y.o. female with PMH of TBI, cerebral palsy, scoliosis who developed two fluid collections: one in the posterior subcutaneous fat and a second, more dense collection centered about a dislocated iliac screw, who is s/p aspiration of the superior paraspinal collection and an 8FR into the more inferior collection. She now presents to Interventional Radiology to undergo drain check/exchange/remove in the setting of low output over the last few days (10mL over the last 48 hours). Informed Consent: After discussing risks (including infection, trauma / damage to surrounding structures, hemorrhage, non-success, amongst others), and benefits of the procedure, the patient consented to the procedure. Monitoring and Sedation Details: The IR nurse was present continuously monitoring pulse, pressure, and oxygen saturation. No systemic sedation was utilized. Procedure Events and Technique: A standard time-out was conducted just before the start of the procedure to verify all foster aspects; including the correct patient and planned procedure, procedure location, informed consent, and all relevant critical information, all of which were correct. The patient was positioned left side down on the procedure table. The back including the previously placed drainage catheter was cleaned and prepped in typical sterile fashion; maximal sterile barrier technique was used throughout. Cleaners fluoroscopic images were obtained. Contrast was injected through the catheter and repeat fluoroscopic images were obtained. The catheter was cut and an 0.035 Amplatz wire was advanced through the catheter. The catheter was removed over the wire. The site was evaluated to ensure no active hemorrhage following catheter removal. The wire was removed and a sterile dressing was applied. Medications: 2% Lidocaine Jelly Topically. Contrast: 10 cc Omnipaque 350, intra-cavitary. Fluoroscopic Time: 0.5 minutes. Estimated Blood Loss: < 5 cc. Complications: No immediate. Findings / Impression: No residual abscess cavity. Drainage catheter removed without incident. Resident/Fellow: None. Attending: Dr. Jamaal Jenkins. I, Dr. Jenkins, was present throughout the procedure. XR Chest One View (Exam End: 07/02/2022 5:04 PM) Narrative EXAMINATION: XR CHEST ONE VIEW CLINICAL HISTORY: fever TECHNIQUE: 1 view of the chest COMPARISON: Chest x-ray, March 23, 2009 FINDINGS: Lungs are clear and without focal consolidation. No pleural effusion or pneumothorax. Cardiomediastinal silhouette and pulmonary vasculature are stable. Stable appearance of the hemithorax and the posterior thoracic to upper lumbar spine fusion hardware. Impression 1. No focal pneumonia. 2. Stable appearance of the posterior spinous fusion hardware and chest. Thank you for letting us participate in the care of this patient. If you are a health care provider and have any questions regarding this report, please contact the number below. For patients who have questions please contact the health critical care specialist that requested your imaging first. Electronically signed by: Enid Vargas MD, [facility] ([phone]), at 07/02/2022 11:[address] Lumbar Spine w Contrast (Exam End: 07/03/2022 5:52 PM) Narrative EXAMINATION: CT LUMBAR SPINE W CONTRAST CLINICAL HISTORY: h/o fluid collection with concern for abscess. s/p CARMELLA drain placement and removal TECHNIQUE: CT lumbar spine performed after the intravenous administration of contrast. Administered 59.3 ml of OMNIPAQUE 350.00 mg/ml. COMPARISON: CT lumbar spine June 24, 2022 FINDINGS: Lumbar dextroscoliosis with apex at L2-3 posterior osseous and instrumented fusion including posterior rods, bilateral L1-L4 pedicle/vertebral body screws, and bilateral iliac screws, the right one of which remains dislocated/disconnected. Otherwise no evidence of hardware loosening or fracture. Hardware artifact partially obscures a right subcutaneous fat/intramuscular collection associated with the dislocated right iliac screw measuring 3.5 x 4.0 cm and extending superiorly in the subcutaneous fat to L3-4, where it is decreased in axial dimension to 4.7 x 2.9cm compared to 4.9cm x 3.2. Strandy changes intervene between this collection and another collection in the midline superficial and deep subcutaneous fat at T12 which is slightly decreased in size to 2.5 x 2.3 cm compared to 2.8 x 2.3 cm previously. No bone destruction. Decreased AP diameter of the vertebral bodies. No definite spinal canal stenosis. Impression Loculated collections in the dorsal subcutaneous fat and likely right gluteal musculature, slightly decreased in size at L3-4 and T12. No peripheral enhancement. Please clinically correlate for signs/symptoms of infection. Thank you for letting us participate in the care of this patient. If you are a health care provider and have any questions regarding this report, please contact the number below. For patients who have questions please contact the health critical care specialist that requested your imaging first. Electronically signed by: Zina Renae MD, [facility] ([phone]), at 07/03/2022 6:31 PM IR All Drainage Procedures (Exam End: 07/04/2022 4:14 PM) Narrative Preoperative Diagnosis: re accumulated Lumbar collection by CT, Fevers Postoperative Diagnosis: Same Procedure Performed: Ultrasound and fluoroscopically guided drain placement. Operators: Mich Martino MD, Attending Estimated Blood Loss: Negligible. Fluoroscopy dose: Please see [facility] IR technologist record for procedural dose/time. Cefazolin/ cefuroxime was not ordered for antimicrobial prophylaxis as it is not indicated or strongly backed by the medical literature. Anesthesia: 1. Conscious sedation with titrated Versed during continuous hemodynamic monitoring including pulse oximetry, heart rate and blood pressure was provided by an independent qualified trained Nurse. I was present during the intraservice time as documented by the IR Nurse. Please see nursing notes for exact medication dosages. 2. 1% lidocaine, local. The patient was informed of the risks, benefits, and alternatives to the procedure and gave written consent, which was then placed in the chart. Appropriate time-out was performed prior to the procedure. Additional DVT prophylaxis was not provided due to the short nature of the procedure, the lack of general anesthesia, and is not strongly backed by the medical literature for this patient population undergoing this type of minimally invasive image guided procedure. Description of Procedure: All elements of maximal sterile barrier technique were met including cap, mask, sterile gown, sterile gloves, large sterile sheet, hand hygiene and 2% chlorhexidine for cutaneous antisepsis. The lumabr region was prepped and draped in the usual sterile fashion. Local anesthetic was administered. Using US guidance, an 18-gauge needle was advanced into the small fluid collection in the lumbar region. An aspirate could not be obtained. A stiff wire was then advanced through the needle into the small fluid collection under fluoroscopic guidance. The needle was removed over the wire. The tract was dilated over the wire and a 8.5 Italian drain was advanced over the wire into the fluid collection. A spot fluoroscopic image shows the drain to be in the collection. The drain was sutured into place and attached to bulb suction. The patient tolerated the procedure well. Impression: Uneventful ultrasound and fluoroscopically guided drain placement as above. No fluid could be aspirated or was present by US. This may represent granulation tissue. I, the attending Interventional Radiologist performed the entire procedure. CT Abdomen & Pelvis w Contrast (Exam End: 07/05/2022 4:07 PM) Narrative EXAMINATION: CT ABDOMEN AND PELVIS W CONTRAST CLINICAL HISTORY: Sepsis - Include more detail below Ecoli bacteremia - has fluid collectsion already drained with negative cs/gram stain - ? abdominal source of EColi? bowel or biliary? TECHNIQUE: Helical CT of the abdomen and pelvis was performed following the intravenous administration of contrast. Administered 66.0 ml of OMNIPAQUE 350.00 mg/ml. Oral contrast administered. COMPARISON: CT lumbar spine June 24, 2022 and July 03, 2022 FINDINGS: Lower chest: Atelectasis versus consolidation left lower lobe. Liver: Normal size and attenuation without lesions. Bile ducts: Nondilated. Gallbladder: No calcified gallstones. Normal caliber wall. Pancreas: Normal attenuation without ductal dilatation. Spleen: Splenomegaly without focal lesion Adrenals: No suprarenal masses. Kidneys: Nonobstructing left nephrolithiasis. Urinary Bladder: Thick walled and incompletely distended Vasculature: Normal caliber abdominal aorta Lymph Nodes: No enlarged lymph nodes. Bowel: Ano rectal mural thickening. Moderate fecal burden. Normal caliber small bowel. Peritoneum and mesentery: Trace pelvic ascites. No free air. Abdominal wall: * 2.4 x 3.2 cm irregular collection without mural enhancement in the left para midline posterior soft tissues in the upper lumbar region extending to the skin surface and anterior edge of the vertebral body (#1). * Persistent stellate soft tissue thickening at the posterior edge of the mid lumbar transverse processes, series 9 image 73. * Lenticular hypodense left paramedian posterior subcutaneous midline lumbar collection stable since July 03, 2022, smaller than June 24, 2022, 1.5 x 4.4 cm (#2). * Stable size of now hypodense, previously enhancing or hyperdense, subcutaneous collection, right of midline, immediately suprajacent to a dorsally projecting fixation screw or meredith (#3). Osseous structures: Severe dextroscoliosis of the lumbar spine with meredith and screw fixation. This is been eloquently described in prior CT lumbar spine reports. Impression 1. Stable and smaller subcutaneous and para midline soft tissue collections extending from the skin to the edge of the lumbar spine and hardware. 2. Proctitis. 3. Cannot distinguish left lower lobe collapse from pneumonia. 4. Nonobstructing left nephrolithiasis. 5. Thick-walled bladder. Cystitis is not excluded. Thank you for letting us participate in the care of this patient. If you are a health care provider and have any questions regarding this report, please contact the number below. For patients who have questions please contact the health critical care specialist that requested your imaging first. Electronically signed by: Nathalie Whitaker MD, [facility] ([phone]), at 07/05/2022 5:38 PM IR Site Check In Recovery Room (Exam End: 07/08/2022 10:29 AM) Narrative This exam is auto-finalizing. No interpretation was done. Pending Studies and Lab Data: None Discharge Conditions/Prognosis: Stable Discharge to: Home Updated Allergies/ADRs: Allergies Allergen Reactions ??? Fluoxetine Other (See Comments) HIVES, HEART RACES ??? Tegaderm [Transparent Dressings] Itching and Dermatitis Please use [id number] ??? Penicillins Immunizations Given this Hospitalization: Immunization History Administered Date(s) Administered ??? Influenza Vaccine (Novel) [id number], Injectable 02/25/2009 ??? Influenza Vaccine w/Preservative, Split 04/25/2011 ??? Influenza Vaccine, Whole 03/27/2009 Discharge Medications: Your Medications New Medications Dose Details levoFLOXacin 750 mg tablet Commonly known as: Levaquin Take 1 tablet by mouth every morning for 39 days. 750 mg Quantity: 40 tablet Refills: 0 Continued medications with new dosing Dose Details baclofen 10 mg tablet Commonly known as: Lioresal Take 10 mg by mouth 2 times daily. What changed: Another medication with the same name was removed. Continue taking this medication, and follow the directions you see here. 10 mg Refills: 0 polyethylene glycoL 17 gram oral powder packet Commonly known as: Miralax Take 17 g by mouth daily. What changed: ?? medication strength ?? when to take this ?? reasons to take this 17 g Refills: 0 Continued medications, unchanged Dose Details multivitamin Tab Commonly known as: THERAGRAN Take 1 tablet by mouth daily. 1 tablet Refills: 0 nystatin 100,000 unit/gram Powd Commonly known as: MYCOSTATIN Apply 1 each topically 2 times daily. 1 each Refills: 0 senna 8.6 mg tablet Commonly known as: Senokot Take 2 tablets by mouth nightly. 2 tablet Refills: 0 STOPPED Medications Acetaminophen 500 mg/15 mL Liqd ammonium lactate 12 % Crea Commonly known as: AMLACTIN cefPODOXime 200 mg tablet Commonly known as: Vantin hydrocortisone 2.5 % Crea ibuprofen 100 mg/5 mL Susp Commonly known as: Motrin ketoconazole 2 % Crea Commonly known as: Nizoral Smoking Status at Discharge: Social History Tobacco Use Smoking Status Never Smokeless Tobacco Never Tobacco Comments NO SMOKERS IN THE HOME Instructions Given to Patient at Discharge: Patient Instructions Instruction after leaving the hospital Why you were hospitalized: You were admitted with concern for the fluid collections in your back and infection. You had the first drain placed on June 25 that was removed on the . This fluid didnot grow bacteria. You then developed fever and were found to have E.Coli in your blood. You had a CT scan of your abdomen which showed some thickening near the rectum that could have been where E.Coli came from. You had another drain placed on July 04 but there was not fluid to aspirate. That drain did not put out fluid and was removed on 07/08. At this point, it is not clear if the fluid pockets were initially infected and did not grow bacteria given prior antibiotics - or if these were unrelated to the EColi in the blood. Your repeat blood cultures have remained negative. You were seen by Infectious Disease. Given the fluid collections and EColi, you will receive a total of 6 weeks of antibiotics which will end August 17. You will see the Infectious Disease doctors before you complete the antibiotics and they will repeat a CT scan to look at the fluid collections. Call your doctor or seek medical attention if you develop the following: Fevers, chills, abdominal pain, nausea, vomiting, not tolerating the antibiotic, diarrhea from the antibiotic, increased redness or pain in your back, or any new concerns. Activity level: As prior Diet: As prior, regular diet without changes Shower/Bath: No new restrictions Specific instructions related to your condition: 1. You are prescribed Levaquin (levofloxacin) - a pill antibiotic to take every day until August 17. 2. You will be called with an appointment with Infectious Disease before your complete you antibiotics. They will do another CT scan to reassess the fluid collections in your back. The number for Infectious Disease is [phone] if you have questions or do not hear by July about your appointment 3. You can use tylenol or motrin if needed if she is having pain. 4. You can use probiotics with the antibiotics if that seems helpful or Activia yogurt. 5. If she develops profuse diarrhea, reach out to primary care for stool testing Follow-Up Appointments Date and Time Provider and Specialty Location July 15, 2022 at 1pm Lorna Bal PCP Office Your Inpatient Doctor(s) at [facility]: [facility] Medicine Dr. Hills and Dr. Jefferson - Infectious Disease. General Instructions [facility] Vascular and Interventional Radiology Discharge Instructions For Your Puncture Site (drain removed on 07/08) Activity and Diet: ??? Go Home and rest quietly for the remainder of the day. You may resume your normal activities tomorrow. ??? Resume your usual diet after the procedure. [...] drainage. When to call your healthcare provider: ??? If you notice bleeding or a bulge from the puncture site, you should apply firm pressure over the site for 10-15 minutes, keeping the site covered and call your doctor. If you are still bleeding after 10-15 minutes, reapply pressure, and have someone drive you to the nearest Emergency Department, or call 911. ??? If you develop pain, redness, drainage or swelling at or around the puncture site. ??? If you develop fever equal to or greater than 101F and/or shaking chills. When to call the Interventional Radiology Department: Please call with any questions or concerns. If it is during regular office hours, please call [phone]. If it is after regular office hours, or on weekends or holidays, please call [phone] and ask to speak to the Cannon Crewmember demand generation manager for Interventional Radiology. You have received medication [...] please contact your M. D. Revised 05/11/15 Future Appointments and Orders Future Appointments and Orders Future Appointments Provider Department Dept Phone 07/31/2022 1:00 PM Lilli Joy APRN Infectious Disease at [facility] Arrive at: Home [phone] Please do not come in for this visit. Your provider will call you at the number you provided. 08/13/2022 11:30 AM Sergey Keane MD Infectious Disease at [facility] Arrive at: [employer] [facility] [phone] Future Orders Complete By Expires IR Drain Check/Change/Remove [[id number] Custom] 07/20/2022 08/06/2022 Process Instructions: Scheduling Instructions: Questions: Where will study be performed?: [facility] Radiology Reason for exam and clinical history: paraspinal drain Clinical information / foster questions for radiologist: Exam/Procedure requested: What labs need to be collected during imaging study?: Is the patient ?: No Does patient require sedation?: GA rationale: Requested Time: Date of injury if applicable: Is the patient on anticoagulant / antiplatelet therapy ?: No Referral to Home Health [REF34 Custom] As directed Process Instructions: If no progress note charted, please enter Clinical details in comments. Scheduling Instructions: Comments: Please evaluate Tana Shelton for admission to Home Health. [address] [place] [id number] Date of : 1995 Inpatient DOCUMENTATION FOR VNA SERVICES (INCLUDING THOSE PATIENTS WITH MEDICARE COVERAGE REQUIRING HOME VNA SERVICES AND/OR HOSPICE SERVICES) PATIENT'S LOCATION: Tana Shelton [address] [facility] [address] Cell: Telephone Information: Telephone Worker's Name: Mother/Guardian Anderson [phone] In discussion with the attending physician, it is certified that this patient is under their care and that they, or a Nurse Practitioner,Clinical Nurse specialist or Physician Life Skills Trainer who is working directly with them, had a face to face encounter that meets the physician face to face encounter requirements with this patient on 07/09/22 The encounter with the patient was in whole, or in part, for the following medical condition, whichis the primary reason for home health care services: E Coli bacteremia In discussion with the provider, it is certified that, based on their findings, the following services are medically necessary for home health services. To provide the following care/treatments with the clinical findings supporting the need for services as follows: HOME CARE ORDERS: RN ORDERS:Assess wound or incision, vital signs, cardiopulmonary status, nutrition, hydration, elimination, meds effectiveness and management; reinforce education re health issues DH OPAT INTAKE: Diagnosis: Bacteremia and Soft tissue/muscle abscess, Spinal collections. Antibiotic Type: PO, ?? Organism(s): E.coli, Antibiotic(s) being taken: Levofloxacin (750 mg PO daily) ?? With a start date of 07/06/2022, and anticipated end date of 08/17/2022. ?? Desired labs: CBC w/diff, CMP and CRP. ?? Lab frequency: Weekly Other: Desired timing of end of therapy appointment: Week of: 08/15/2022. ?? Other speciality appointments to coordinate with: No ?? Dialysis patient?: No ?? Imaging needed?: Yes What study?: CT spine with IV contrast Who is ordering?: Infectious Diseases Preferred provider for end of therapy visit: Dr Jefferson, Dr Samuel HOME HEALTH CARE AGENCY: [facility]. [address] [place] [address] Start of care: Anticipated start of care 24-48 hours after discharge Please note that any additional orders needs or changes will need to be obtained from this patient's PCP: Lorna Bal APRN [address] [facility] [address] All A agencies which cover the area of patient's residence have been reviewed, either verbally fatoumtaa writing, and patient/family have chosen the home health care agency noted ' Questions: Disciplines Requested: Nursing Discharge References/Attachments None documented in this encounter Discharge Instructions * Discharge Instructions* Hollie Perez MD - 06/25/2022 5:20 AM EST [facility] Vascular and Interventional Radiology Discharge Instructions For Your Puncture Site (drain removed on 07/08) Activity and Diet: Go Home and rest [...] is during regular office hours, please call [phone]. If it is after regular office hours, or on weekends or holidays, please call [phone] and ask to speak to the Cannon Crewmember demand generation manager for Interventional Radiology. You have received medication [...] please contact your M. D. Revised 05/11/15 * Patient Instructions* Hollie Perez MD - 07/09/2022 8:42 AM EDT Instruction after leaving the hospital Why you were hospitalized: You were admitted with concern for the fluid collections in your back and infection. You had the first drain placed on June 25 that was removed on the . This fluid didnot grow bacteria. You then developed fever and were found to have E.Coli in your blood. You had a CT scan of your abdomen which showed some thickening near the rectum that could have been where E.Coli came from. You had another drain placed on July 04 but there was not fluid to aspirate. That drain did not put out fluid and was removed on 07/08. At this point, it is not clear if the fluid pockets were initially infected and did not grow bacteria given prior antibiotics - or if these were unrelated to the EColi in the blood. Your repeat blood cultures have remained negative. You were seen by Infectious Disease. Given the fluid collections and EColi, you will receive a total of 6 weeks of antibiotics which will end August 17. You will see the Infectious Disease doctors before you complete the antibiotics and they will repeat a CT scan to look at the fluid collections. Call your doctor or seek medical attention if you develop the following: Fevers, chills, abdominal pain, nausea, vomiting, not tolerating the antibiotic, diarrhea from the antibiotic, increased redness or pain in your back, or any new concerns. Activity level: As prior Diet: As prior, regular diet without changes Shower/Bath: No new restrictions Specific instructions related to your condition: You are prescribed Levaquin (levofloxacin) - a pill antibiotic to take every day until August 17. 2. You will be called with an appointment with Infectious Disease before your complete you antibiotics. They will do another CT scan to reassess the fluid collections in your back. The number for Infectious Disease is [phone] if you have questions or do not hear by July about your appointment 3. You can use tylenol or motrin if needed if she is having pain. 4. You can use probiotics with the antibiotics if that seems helpful or Activia yogurt. 5. If she develops profuse diarrhea, reach out to primary care for stool testing Follow-Up Appointments Date and Time Provider and Specialty Location July 15, 2022 at 1pm Lorna Bal PCP Office Your Inpatient Doctor(s) at [facility]: Dr. Perez - Hospital Medicine Dr. Hills and Dr. Jefferson - Infectious Disease. documented in this encounter Medications at Time [...] as of this encounter Progress Notes * Hollie Perez MD - 07/09/2022 9:59 AM EDT Hospital Medicine - Attending Day of Discharge Documentation Discharge diagnosis Active Hospital Problems Diagnosis ??? 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 Resolved Hospital Problems No resolved problems to display. Secondary Issues Active Non-Hospital Problems Diagnosis ??? Fracture of femur, distal ??? Contracture of elbow ??? Right leg pain ??? Presence of intrathecal baclofen pump ??? Spasticity ??? Scoliosis ??? Edema leg ??? Acquired dysplasia of hip, bilateral ??? 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 I spent >30 minutes (Day of Discharge Code 67408) involved in the final examination of the patient, discussion of the hospital stay, instructions for continuing care to all relevant caregivers, and preparation of discharge records, prescriptions and referral forms. Plans ? Discharge to home ? Follow-up scheduled with PCP, ID to schedule ? Please see the Discharge Summary for complete details of any medication changes and additional plans. * Hollie Perez MD - 07/08/2022 1:38 PM EDT Hospital Medicine Attending Daily Progress Note DATE OF ADMISSION: 06/24/2022 Hospital Day 14 days Active Hospital Problems Diagnosis ??? 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 Resolved Hospital Problems No resolved problems to display. ASSESSMENT: Tana is a 27 y/o with h/o TBI with spastic quadriplegia, CP, s/p intrathecal baclofen pump and removal complicated by site infection in past, nonverbal, scoliosis, s/p PSF an bilateral [place]ird[place] '11 admitted with increasing redness and tenderness over the midline surgical scar on the back for several weeks and fluid collections. Prior to this admission she had been treated as cellulitis as an outpatient with keflex then cefepime vanc for 3 days at [facility] and discharged on cefpodoxime, referred to for further management. CT showed two irregular fluid collections within the posterior subcutaneous fat at the lumbar region with possible deep extension to the level of L1 and L2 lamina on the left side. Denser soft tissue collection around the dislocated right iliac screw likely chronic organized hematoma. She was evaluatedby spine surgery with recommendations for IR guided aspiration and drainage (done 06/25). Cultures from her drain has remained no growth to date. Patient developed fever 3/10, LA 2.6, relative hypotension - repeat CT shows persistent fluid collection with possible extension to gluteal muscles and drain placed by IR 07/04 (not able to aspirate -?granulation tissue). Blood cultures then returned with EColi. UA unrevealing. Fluid cultures no growth and negative gram stain thus less clear that EColi related to fluid collections (had been on antibiotics prior though no organisms on gram stain from 06/25). CT with some anorectal thickening that could be source of EColi. . Appreciate ID and at this juncture plan for 6 weeks and change to levaquin on discharge. Will give dose of levaquin tomorrow morning to ensure tolerates then plan to dc home tomorrow. BP improved today with more oral intake; normal am cortisol. PLAN: #Sepsis with episodic tachycardia/relative hypotension, LA 2.6, fever #EColi bacteremia -? From spinal collections or other source #Hypotension - resolved -CTX through today - levaquin before leaves tomorrow -Repeat culture NGTD -CT A/P as below with anorectal thickening as possible source of bacterial translocation -Appreciate ID input - plan for 6 weeks of antibiotics with levaquin; will need ID f/u and imaging before stops abx # Possible spinal abscess/Back cellulitis - cultures negativ: -Concern for abscess formation due to discomfort and overlying redness over previous spinal surgeryincision. - S/p IR aspiration with CARMELLA drain in place from 06/25. Superior drain appeared like old blood, while inferior collection appeared purulent on drainage. CARMELLA drain removed by IR on 07/01/2022. -Attempt at re-aspiration on 07/04 - no fluid aspiration - drain placed and discussed with IR- not draining - will remove today -Follow-up fluid cultures - NGTD - At this juncture will not plan repeat drainage unless clinical change -Talk with IR about current drain # Parainfluenza, URTI - Cont supportive care -Minimal cough # TBI with spastic quadraplegia/Cerebral palsy/Scoliosis: Continue home baclofen 10mg PO BID and APAP as needed. Family: Updated mom at bedside IV access/ MIVF PIV Tubes/ Drains CARMELLA drain DVT prophylaxis Enoxaparin Wound care none Goals of care, communication with family Full code TRANSMISSION SPECIALIST, nutrition recommendations, diet regular Anticipated Disposition, PT/OT recommendations Home tomorrow Team Pager ( Coverage 17/11) [phone] PCP Lorna Bal APRN Attestation IPI Certification I certify that I am a [facility] credentialed attending provider with admitting privileges and that the patient meets or has met medical necessity to require an inpatient IPI level of care meeting a minimumof two midnights or is on the [facility] inpatient only procedure list (status C) due to possible abscess requiring IV antibiotics. Hollie Perez MD 07/08/2022 INTERVAL HISTORY/ Subjective: No acute events - SBP 100s - no bolus. Did not have a BM yesterday. No vomiting. No fevers. Non verbal but awake and smiling. Talked to mom - she has been eating and thinks she will be happy to get home. VITALS: Vitals Range last 24 hrs Temperature Temp: [35.7 ??C (96.3 ??F)-36.8 ??C (98.2 ??F)] Heart Rate Heart Rate: -- Blood Pressure BP: (87-113)/(55-74) Respiratory Rate Resp: [16-20] SpO2 SpO2: [96 %-99 %] Intake/Output Summary (Last 24 hours) at 07/08/2022 1338 Last data filed at 07/07/20222025 Gross per 24 hour Intake -- Output 2 ml Net -2 ml No data found. Body mass index is 19.75 kg/m??. Estimated Creatinine Clearance: 267.5 mL/min (A) (based on SCr of 0.24 mg/dL (L)).. PHYSICAL EXAM: CONSTITUTIONAL: In bed, non-toxic, smiling and awake HEENT: Anicteric sclera CHEST: RRR, LUNGS: Lungs clear to auscultation anteriorly ABDOMEN: soft, BS present, not grimacing to palpation of RUQ, abdomen EXTREMITIES: contractures, no edema LABS: Recent Labs 07/08/22 0548 07/07/2234007/06/22 1840 07/05/22 0531 WBC 5.3 3.8* -- 3.4* HGB 8.4* 7.6* 8.5* 7.7* HCT 27.2* 25.5* 26.4* 25.4* PLATELET 336 281 -- 240 Recent Labs 07/08/22 0548 07/07/22 0341 07/06/22 0621 NA 140 141 138 K 3.8 3.7 3.6 CL 105 110* 104 CO2 Not Perf BUN 6* 5* 4* CREATININE 0.24* 0.23* 0.26* Recent Labs 07/07/22 03407/06/22 0621 07/05/22 0531 AST 20 25 39* ALT 42* 57* 74* ALKPHOS 177* 199* 209* BILITOT <0.2* 0.3 0.4 BILIDIR <0.1 0.1 0.1 Recent Labs 07/08/22 0548 07/07/22 0341 07/06/22 0621 CALCIUM 8.7 8.3* 8.6 No results for input(s): PT, INR, PTT in the last 168 hours. No results for input(s): CK, TROPONINT in the last 168 hours. INPATIENT MEDICATIONS: Scheduled ??? [START ON 07/09/2022] levoFLOXacin 750 mg Oral QAM ??? cefTRIAXone 2 g Intravenous Q24H ??? polyethylene glycoL (MIRALAX) oral powder 17 g Oral Daily ??? senna-docusate 2 tablet Oral BID ??? miconazole Topical (Top) BID ??? sodium chloride 0.9 % (flush) 5 mL Intravenous BID ??? enoxaparin 30 mg Subcutaneous Nightly ??? baclofen 10 mg Oral BID ??? multivitamin with minerals 1 tablet Oral Daily Continuous infusions: PRN: prochlorperazine, ondansetron, benzonatate, bisacodyL, acetaminophen, sodium chloride 0.9 % (flush), lidocaine Studies reviewed in eDH. Remarkable for the following: FSBG Trend: Recent Labs 07/06/22 1736 POCGLU 86 MICRO: No results for input(s): URINECULTURE in the last 720 hours. Recent Labs 06/25/22 1511 06/25/22 1512 GRAMSTAIN Many Neutrophils seen No microorganisms seen. Many Neutrophils seen No microorganisms seen. BFCX No growth No growth Recent Labs 06/25/22 0855 07/01/22202007/03/22 2245 07/03/22 2305 07/06/22 0621 07/07/22 0341 BLOODCX No growth at 5 days. No growth at 5 days. No growth at 5 days. No growth at 4 days. Escherichia coli detected by PCR Isolate saved. If future testing is required, contact the Microbiology Marine Electronics Technician. * No growth at 1 day. No growth at 1 day. ECG: Recent Labs 07/07/22 1144 DIAGLINE Normal sinus rhythm with sinus arrhythmia Cannot rule out Inferior infarct , age undetermined Abnormal ECG When compared with ECG of 04-JUL-2022 00:16, Vent. rate has decreased BY 74 BPM Minimal criteria for Inferior infarct are now Present Nonspecific T wave abnormality, improved in Inferior leads Nonspecific T wave abnormality, improved in Lateral leads QTCCALC 467 VASCULAR: No results for input(s): VBTEXTRPT in the last 720 hours. IMAGING: Results for orders placed or performed during the hospital encounter of 06/24/22 CT Lumbar Spine w Contrast (Exam End: 06/24/2022 6:27 PM) Impression There are 2 irregular collections within the posterior subcutaneous fat of the lumbar region. The more superior collection appears to have deep extension to the level of the L1 and L2 lamina on the left side, but evaluation is marred by artifact. Findings are nonspecific, but infected collection is a possibility. Denser soft tissue collection centered about the dislocated right iliac screw was present on prior study but better visualized on current study. This may represent a chronic organized hematoma. Thank you for letting us participate in the care of this patient. If you are a health care provider and have any questions regarding this report, please contact the number below. For patients who have questions please contact the health critical care specialist that requested your imaging first. Electronically signed by: Jamaal Villafuerte, [facility] ([phone]), at 06/24/2022 6:56 PM XR Chest One View (Exam End: 07/02/2022 5:04 PM) Impression 1. No focal pneumonia. 2. Stable appearance of the posterior spinous fusion hardware and chest. Thank you for letting us participate in the care of this patient. If you are a health care provider and have any questions regarding this report, please contact the number below. For patients who have questions please contact the health critical care specialist that requested your imaging first. Electronically signed by: Enid Vargas MD, [facility] ([phone]), at 07/02/2022 11:[address] Lumbar Spine w Contrast (Exam End: 07/03/2022 5:52 PM) Impression Loculated collections in the dorsal subcutaneous fat and likely right gluteal musculature, slightly decreased in size at L3-4 and T12. No peripheral enhancement. Please clinically correlate for signs/symptoms of infection. Thank you for letting us participate in the care of this patient. If you are a health care provider and have any questions regarding this report, please contact the number below. For patients who have questions please contact the health critical care specialist that requested your imaging first. Electronically signed by: Zina Renae MD, [facility] ([phone]), at 07/03/2022 6:[address] Abdomen & Pelvis w Contrast (Exam End: 07/05/2022 4:07 PM) Impression 1. Stable and smaller subcutaneous and para midline soft tissue collections extending from the skin to the edge of the lumbar spine and hardware. 2. Proctitis. 3. Cannot distinguish left lower lobe collapse from pneumonia. 4. Nonobstructing left nephrolithiasis. 5. Thick-walled bladder. Cystitis is not excluded. Thank you for letting us participate in the care of this patient. If you are a health care provider and have any questions regarding this report, please contact the number below. For patients who have questions please contact the health critical care specialist that requested your imaging first. Electronically signed by: Nathalie Whitaker MD, [facility] ([phone]), at 07/05/2022 5:38 PM * Chrissie Lee PA - 07/08/2022 10:34 AM EDT 10:30- Paraspinal drain (placed 07/04) removed as requested per primary team 2nd scant output. IR attending, Dr. Martino, approved this request. Catheter trimmed proximal to hub to release pigtail. Catheter easily removed with all components intact without resistance. Site was covered with clean dressing. There were no immediate complications. * Sergey Keane MD - 07/08/2022 8:08 AM EDT OPAT INTAKE: Diagnosis: Bacteremia and Soft tissue/muscle abscess, Spinal collections. Antibiotic Type: PO, Organism(s): E.coli, Antibiotic(s) being taken: Levofloxacin (750 mg PO daily) With a start date of 07/06/2022, and anticipated end date of 08/17/2022. Desired labs: CBC w/diff, CMP and CRP. Lab frequency: Weekly Other: Desired timing of end of therapy appointment: Week of: 08/15/2022. Other speciality appointments to coordinate with: No Dialysis patient?: No Imaging needed?: Yes What study?: CT spine with IV contrast Who is ordering?: Infectious Diseases Preferred provider for end of therapy visit: Dr Jefferson, Dr Samuel * Hollie Perez MD - 07/07/2022 6:02 PM EDT Hospital Medicine Attending Daily Progress Note DATE OF ADMISSION: 06/24/2022 Hospital Day 13 days Active Hospital Problems Diagnosis ??? 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 Resolved Hospital Problems No resolved problems to display. INTERVAL HISTORY/ Subjective: Bolused overnight for BP Changed to ceftriaxone for escobar sens EColi Bld cx negative 07/06 and 07/07 Talked with mom at bedside and caregiver this morning. Tana more alert today and more interactive.Ate bag of pretzels with her mom. They feel her face looks puffy from IVF - outs not recorded but +5.7L. ASSESSMENT: Tana is a 27 y/o with h/o TBI with spastic quadriplegia, CP, s/p intrathecal baclofen pump and removal complicated by site infection in past, nonverbal, scoliosis, s/p PSF an bilateral Girdlestone '11 admitted with increasing redness and tenderness over the midline surgical scar on the back for several weeks. She had been treated as cellulitis as an outpatient with keflex then cefepime vanc (inpt admission [place] - no evidence of draining wounds or areas , not septic, no loosing of hardware, US hsowed 8 x 9mm subcutaneous fluid collection evaluated by ortho - not drained; discharged on cefpodoxime), referred to for further management. CT showed two irregular fluid collections within the posterior subcutaneous fat at the lumbar region with possible deep extension to the level of L1 and L2 lamina onthe left side. Denser soft tissue collection around the dislocated right iliac screw likely chronicorganized hematoma. She was evaluated by spine surgery with recommendations for IR guided aspiration and drainage (done 06/25). Cultures from her drain has remained no growth to date. Patient developed fever 07/04, LA 2.6, relative hypotension - repeat CT shows persistent fluid collection with possible extension to gluteal muscles and drain placed by IR 07/04 (not able to aspirate -?granulation tissue). Blood cultures then returned with EColi. UA unrevealing. Not clear if fluid collections related to EColi or if alternate source (no organisms on gram stain from 06/25). Vomited 07/05. CT with some anorectal thickening that could be source/ translocate. Fluid cultures no growth and negative gram stain thus less clear that EColi related to fluid collections (had been on antibiotics prior). Appreciate ID and at this juncture plan for 6 weeks and change to levaquin on discharge. Given positive fluid balance, will tolerate SBP to 80s if asymptomatic. Will check am cortisol though AI unlikely. Monitor Hgb likely some hemodilution. If remains stable, possible dc in 1-2 days. PLAN: #Sepsis with episodic tachycardia/relative hypotension, LA 2.6, fever #EColi bacteremia -? From spinal collections or other source #Hypotension -Bolus prn hypotension - tolerate SBP 80s if asymptomatic -Continue CTX -then levaquin on dc for 6 weeks from 07/06. QTc OK. -Repeat culture NGTD -CT A/P as below -Appreciate ID input # Possible spinal abscess/Back cellulitis: -Concern for abscess formation due to discomfort and overlying redness over previous spinal surgeryincision. - S/p IR aspiration with CARMELLA drain in place from 06/25. Superior drain appeared like old blood, while inferior collection appeared purulent on drainage. CARMELLA drain removed by IR on 07/01/2022. -Attempt at re-aspiration on 07/04 - no fluid aspiration - drain placed -Follow-up fluid cultures - NGTD - At this juncture will not plan repeat drainage unless clinical change -Talk with IR about current drain # Parainfluenza, URTI - Cont supportive care -Minimal cough # TBI with spastic quadraplegia/Cerebral palsy/Scoliosis: Continue home baclofen 10mg PO BID and APAP as needed. Family: Updated mom at bedside IV access/ MIVF PIV Tubes/ Drains CARMELLA drain DVT prophylaxis Enoxaparin Wound care none Goals of care, communication with family Full code TRANSMISSION SPECIALIST, nutrition recommendations, diet regular Anticipated Disposition, PT/OT recommendations Home in next 1-2 days Team Pager ( Coverage 17/11) [phone] PCP Lorna Bal APRN Attestation IPI Certification I certify that I am a [facility] credentialed attending provider with admitting privileges and that the patient meets or has met medical necessity to require an inpatient IPI level of care meeting a minimumof two midnights or is on the [facility] inpatient only procedure list (status C) due to possible abscess requiring IV antibiotics. Hollie Perez MD 07/07/2022 ROS: non verbal. Talked to caregiver at bedside. Noted did not eat as much but as bubbly this morning. Vomited during my visit which is not typical per caregiver. Does not seem to be having pain per caregiver. VITALS: Vitals Range last 24 hrs Temperature Temp: [35.6 ??C (96.1 ??F)-36.1 ??C (97 ??F)] Heart Rate Heart Rate: -- Blood Pressure BP: (83-97)/(46-64) Respiratory Rate Resp: [14-18] SpO2 SpO2: [93 %-98 %] Intake/Output Summary (Last 24 hours) at 07/07/2022 1802 Last data filed at 07/07/2022 0456 Gross per 24 hour Intake 1974 ml Output -- Net 1974 ml No data found. Body mass index is 19.75 kg/m??. Estimated Creatinine Clearance: 279.2 mL/min (A) (based on SCr of 0.23 mg/dL (L)).. PHYSICAL EXAM: CONSTITUTIONAL: In bed, non-toxic HEENT: Anicteric sclera CHEST: RRR, LUNGS: Lungs clear to auscultation anteriorly ABDOMEN: soft, BS present, not grimacing to palpation of RUQ, abdomen EXTREMITIES: contractures, no edema LABS: Recent Labs 07/07/22 0341 07/06/22 1840 07/05/22 0531 07/04/22 0607 WBC 3.8* -- 3.4* 8.3 HGB 7.6* 8.5* 7.7* 8.3* HCT 25.5* 26.4* 25.4* 26.0* PLATELET 281 -- 240 244 Recent Labs 07/07/22 0341 07/06/22 0621 07/05/22 0531 NA 141 138 142 K 3.7 3.6 3.8 CL 110* 104 108* CO2 23 Not Perf 25 BUN 5* 4* 6* CREATININE 0.23* 0.26* 0.29* Recent Labs 07/07/22 03407/06/22 0621 07/05/22 0531 AST 20 25 39* ALT 42* 57* 74* ALKPHOS 177* 199* 209* BILITOT <0.2* 0.3 0.4 BILIDIR <0.1 0.1 0.1 Recent Labs 07/07/22 03407/06/22 0621 07/05/22 0531 CALCIUM 8.3* 8.6 8.4* No results for input(s): PT, INR, PTT in the last 168 hours. No results for input(s): CK, TROPONINT in the last 168 hours. INPATIENT MEDICATIONS: Scheduled ??? cefTRIAXone 2 g Intravenous Q24H ??? polyethylene glycoL (MIRALAX) oral powder 17 g Oral Daily ??? senna-docusate 2 tablet Oral BID ??? miconazole Topical (Top) BID ??? sodium chloride 0.9 % (flush) 5 mL Intravenous BID ??? enoxaparin 30 mg Subcutaneous Nightly ??? baclofen 10 mg Oral BID ??? multivitamin with minerals 1 tablet Oral Daily Continuous infusions: PRN: prochlorperazine, ondansetron, benzonatate, bisacodyL, acetaminophen, sodium chloride 0.9 % (flush), lidocaine Studies reviewed in eDH. Remarkable for the following: FSBG Trend: Recent Labs 07/06/22 1736 POCGLU 86 MICRO: No results for input(s): URINECULTURE in the last 720 hours. Recent Labs 06/25/22 1511 06/25/22 1512 GRAMSTAIN Many Neutrophils seen No microorganisms seen. Many Neutrophils seen No microorganisms seen. BFCX No growth No growth Recent Labs 06/25/22 0855 07/01/22202007/03/22 2245 07/03/22 2305 07/06/22 0621 BLOODCX No growth at 5 days. No growth at 5 days. No growth at 5 days. No growth at 3 days. Escherichia coli detected by PCR Isolate saved. If future testing is required, contact the Microbiology Marine Electronics Technician. * No growth at 1 day. ECG: Recent Labs 07/07/22 1144 DIAGLINE Normal sinus rhythm with sinus arrhythmia Cannot rule out Inferior infarct , age undetermined Abnormal ECG When compared with ECG of 04-JUL-2022 00:16, Vent. rate has decreased BY 74 BPM Minimal criteria for Inferior infarct are now Present Nonspecific T wave abnormality, improved in Inferior leads Nonspecific T wave abnormality, improved in Lateral leads QTCCALC 467 VASCULAR: No results for input(s): VBTEXTRPT in the last 720 hours. IMAGING: Results for orders placed or performed during the hospital encounter of 06/24/22 CT Lumbar Spine w Contrast (Exam End: 06/24/2022 6:27 PM) Impression There are 2 irregular collections within the posterior subcutaneous fat of the lumbar region. The more superior collection appears to have deep extension to the level of the L1 and L2 lamina on the left side, but evaluation is marred by artifact. Findings are nonspecific, but infected collection is a possibility. Denser soft tissue collection centered about the dislocated right iliac screw was present on prior study but better visualized on current study. This may represent a chronic organized hematoma. Thank you for letting us participate in the care of this patient. If you are a health care provider and have any questions regarding this report, please contact the number below. For patients who have questions please contact the health critical care specialist that requested your imaging first. Electronically signed by: Jamaal Villafuerte [facility] ([phone]), at 06/24/2022 6:56 PM XR Chest One View (Exam End: 07/02/2022 5:04 PM) Impression 1. No focal pneumonia. 2. Stable appearance of the posterior spinous fusion hardware and chest. Thank you for letting us participate in the care of this patient. If you are a health care provider and have any questions regarding this report, please contact the number below. For patients who have questions please contact the health critical care specialist that requested your imaging first. Electronically signed by: Enid Vargas MD, [facility] ([phone]), at 07/02/2022 11:[address] Lumbar Spine w Contrast (Exam End: 07/03/2022 5:52 PM) Impression Loculated collections in the dorsal subcutaneous fat and likely right gluteal musculature, slightly decreased in size at L3-4 and T12. No peripheral enhancement. Please clinically correlate for signs/symptoms of infection. Thank you for letting us participate in the care of this patient. If you are a health care provider and have any questions regarding this report, please contact the number below. For patients who have questions please contact the health critical care specialist that requested your imaging first. Electronically signed by: Zina Renae MD, [facility] ([phone]), at 07/03/2022 6:[address] Abdomen & Pelvis w Contrast (Exam End: 07/05/2022 4:07 PM) Impression 1. Stable and smaller subcutaneous and para midline soft tissue collections extending from the skin to the edge of the lumbar spine and hardware. 2. Proctitis. 3. Cannot distinguish left lower lobe collapse from pneumonia. 4. Nonobstructing left nephrolithiasis. 5. Thick-walled bladder. Cystitis is not excluded. Thank you for letting us participate in the care of this patient. If you are a health care provider and have any questions regarding this report, please contact the number below. For patients who have questions please contact the health critical care specialist that requested your imaging first. Electronically signed by: Nathalie Whitaker MD, [facility] ([phone]), at 07/05/2022 5:38 PM * Sergey Keane MD - 07/07/2022 4:02 PM EDT Images from the original note were not included. DEPARTMENT OF INFECTIOUS DISEASE & INTERNATIONAL [facility] INFECTIOUS DISEASE PROGRESS NOTE Reason for follow up: E coli bacteremia, Spinal collections, gluteal abscess Subjective:Case discussed during rounds with ID team and the attending Dr. Samuel Patient is seen and examined at bedside. project construction manager at bedside, refers she is lethargic with decreased PO intake. No fever Review of systems: All negative except for what is stated above Antimicrobials: Cefepime 07/04-07/05 Vancomycin 07/04-07/05 Ceftriaxone 07/05 Physical Exam: Temp: [35.6 ??C (96.1 ??F)-36.2 ??C (97.2 ??F)] Heart Rate: -- Resp: [14-18] BP: (71-97)/(40-64) SpO2: [93 %-99 %] Heart Rate from SpO2: [57 bpm-76 bpm] VITAL SIGNS: Reviewed HEENT: Oropharynx is clear. Mouth no lesions. NECK: No lymphadenopathy or tenderness. LUNGS: Breath sounds are equal and clear bilaterally. No wheezes, rhonchi, or rales. HEART: Regular rate and rhythm with normal S1 and S2. No murmurs ABDOMEN: Soft. No mass, tenderness, guarding, or rebound. No organomegaly or hernia. Bowel sounds are present. EXTREMITIES: No cyanosis, clubbing, or edema. NEUROLOGIC: Awake SKIN: No lesions, nodules or rashes are noted ?? Labs: CBC: Recent Labs 07/07/22 0341 07/06/22 1840 07/05/22 0531 07/04/22 0607 WBC 3.8* -- 3.4* 8.3 HGB 7.6* 8.5* 7.7* 8.3* PLATELET 281 -- 240 244 Chemistry: Recent Labs 07/07/22 0341 07/06/22 0621 07/05/22 0531 NA 141 138 142 K 3.7 3.6 3.8 CL 110* 104 108* CO2 23 Not Perf 25 BUN 5* 4* 6* CREATININE 0.23* 0.26* 0.29* GLUCOSE 90 80 85 Recent Labs 07/07/22 0341 07/06/22 0621 07/05/22 0531 07/02/22 0615 07/01/22 1814 06/30/22 0429 06/29/22 0558 06/28/22 0538 CALCIUM 8.3* 8.6 8.4* < > -- < > 9.0 9.1 MAGNESIUM -- -- -- -- 0.74 -- 0.88 0.78 < > = values in this interval not displayed. LFT's: Recent Labs 07/07/22 0341 07/06/22 0621 07/05/22 0531 BILITOT <0.2* 0.3 0.4 BILIDIR <0.1 0.1 0.1 ALBUMIN 2.9* 3.2 3.1* ALKPHOS 177* 199* 209* ALT 42* 57* 74* AST 20 25 39* Microbiology: Blood Culture 07/03/22 ??Abnormal?? Escherichia coli detected by PCR New Notable Imaging/Studies: Reviewed No new in the past 24 hrs Summary: 27 year-old female with a PMH of??TBI with spastic quadriplegia, CP, scoliosis, 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 and??prior bilateral Girdlestone??in??2010??was admitted to on 06/24 after her mother noticed she had??increasing redness and tenderness over the midline surgical scar on the back??seen in OSH concerns of cellulitis,??she was on??cephalexin--> cefepime + vancomycin --> cefpodoxime??de spite ABX symptoms persited.??CT performed on 06/24 showed two??irregular collections within the posterior subcutaneous fat of the lumbar region. On 06/25 she underwent IR guided drainage with findings of old blood from the superior collection, while the??more inferior collection drained purulent material, and a drain was placed.??Cultures with no growth to date which is not entirely surprising since she was on antibiotics??when specimen was collected. There was a possibility that her collection were sterile in nature ??vs an indolent organism such as C.acnes?. Patient was monitored off ABX for a week, she was hemodynamically stable, afebrile, with normal WBCcount. In??absence??of??identified??pathogen or ongoing SIRS we decided to monitor off ABX, with active surveillance of acute phase reactants and possible repeating imaging. Drain was removed by IR. Patient was slotted for discharge when she developed fever and hypotension prompting initiation of ABX and repeating lumbar imaging showing loculated collections and a gluteal abscess. Unfortunately given the urgency of the situation, Cefepime and vancomycin were initiated before drainage was obtain. Patient underwent IR drainage of collection with minimal drainage, no culture were obtained . However her BCx returned positive for E coli. Unclear source, UA negative, CT no evidence of abnormalities. Only possible source is GI translocation from Proctitis. At this time it is possible that shehad transient bacteremia that promoted developing of this spinal collections. Thus we are planning to treat for 6 weeks with ABX, this will cover the bacteremia and the spinal collection and gluteal abscess . Ceftriaxone can be continued while in house, and upon discharge she can be transitioned tolevofloxacin. QTC rechecked. Recommendations: -Continue ceftriaxone 2 gr IV 8 hrs while in house -Transition to Levofloxacin 750 mg PO daily duration of therapy 6 weeks From 07/06 -Follow up with ID as outpatient prior to completion of ABX therapy -Rest of management per primary team Thank you for allowing us to participate in the care of this patient. Infectious diseases team will: Continue to follow [] Sign off from this case. Please call us back for any further question [x] Sergey Doan MD Infectious Disease Fellow Pager [phone] 07/07/22 (Attending addendum to follow) Associated attestation - Jamaal Hills MD - 07/07/2022 7:53 PM EDT I have seen and examined the patient and discussed the assessment and plan with the fellow. I reviewed the fellow's note and I agree with the documented findings and recommendations. While it's not certain that the spinal fluid collection is infected, we assume that the E.coli bacteremia related, even if it likely originates from the inflamed colon seen on CT scan. We therefore recommend a 6 week course for hardware-associated spinal osteomyelitis, which can be done with ceftriaxone while in house and with oral levofloxacin on discharge. I recommend repeat imaging or GI evaluation before the end of treatment to evaluate the colon and to assure resolution of the paraspinal fluid collections. Jamaal Hills MD ID Staff Physician * Hollie Perez MD - 07/06/2022 2:07 PM EDT Hospital Medicine Attending Daily Progress Note DATE OF ADMISSION: 06/24/2022 Hospital Day 12 days Active Hospital Problems Diagnosis ??? 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 Resolved Hospital Problems No resolved problems to display. INTERVAL HISTORY/ Subjective: Bolus IVF overnight for lower BP Remains on cefepime CT A/P done with EColi bacteremia Talked with caregiver at bedside - notes that note as interactive and not wanting to eat. Not clearif uncomfortable or nauseous or if throat hurts. Does not seem to be having abdominal pain. Notes that at home can go a week between bowel movements. ASSESSMENT: Tana is a 27 y/o with h/o TBI with spastic quadriplegia, CP, s/p intrathecal baclofen pump and removal complicated by site infection in past, nonverbal, scoliosis, s/p PSF an bilateral Girdlestone '11 admitted with increasing redness and tenderness over the midline surgical scar on the back for several weeks. She had been treated as cellulitis as an outpatient with keflex then cefepime vanc (inpt admission [place] - no evidence of draining wounds or areas , not septic, no loosing of hardware, US hsowed 8 x 9mm subcutaneous fluid collection evaluated by ortho - not drained; discharged on cefpodoxime), referred to for further management. CT showed two irregular fluid collections within the posterior subcutaneous fat at the lumbar region with possible deep extension to the level of L1 and L2 lamina onthe left side. Denser soft tissue collection around the dislocated right iliac screw likely chronicorganized hematoma. She was evaluated by spine surgery with recommendations for IR guided aspiration and drainage (done 06/25). Cultures from her drain has remained no growth to date. Patient developed fever 07/04, LA 2.6, relative hypotension - repeat CT shows persistent fluid collection with possible extension to gluteal muscles and drain placed by IR 07/04 (not able to aspirate -?granulation tissue). Blood cultures have now returned with EColi. UA unrevealing. AP, AST/ALT mildelevations (no prior this admit). Not clear if fluid collections related to EColi or if alternate source (no organisms on gram stain from 06/25). Vomited 07/05. CT with some anorectal thickening but sounds like has some chronic constipation. Possible could translocate. Fluid cultures no growth and negative gram stain thus less clear that EColi related to fluid collections (had been on antibiotics but also would have covered EColi). She is still not feeling to her baseline with lower po intake. Monitoring repeat cultures, narrow to ceftriaxone. Appreciate ID input. PLAN: # Possible spinal abscess/Back cellulitis: -Concern for abscess formation due to discomfort and overlying redness over previous spinal surgeryincision. - S/p IR aspiration with CARMELLA drain in place from 06/25. Superior drain appeared like old blood, while inferior collection appeared purulent on drainage. CARMELLA drain removed by IR on 07/01/2022. -Attempt at re-aspiration on 07/04 - no fluid aspiration - drain placed -Follow-up fluid cultures - NGTD #Sepsis with episodic tachycardia/relative hypotension, LA 2.6, fever #EColi bacteremia -? From spinal collections or other source -Continue with IV fluids - bolus prn hypotension -Change cefepime to ceftriaxone - escobar sensitive -Repeat culture today -CT A/P as below -Appreciate ID # Parainfluenza, URTI - Cont supportive care -Minimal cough # TBI with spastic quadraplegia/Cerebral palsy/Scoliosis: Continue home baclofen 10mg PO BID and APAP as needed. Family: Updated mom by phone and spoke to caregiver at bedside IV access/ MIVF PIV Tubes/ Drains CARMELLA drain DVT prophylaxis Enoxaparin Wound care none Goals of care, communication with family Full code TRANSMISSION SPECIALIST, nutrition recommendations, diet regular Anticipated Disposition, PT/OT recommendations Home Team Pager ( Coverage 17/11) [phone] PCP Lorna Bal APRN Attestation IPI Certification I certify that I am a D-H credentialed attending provider with admitting privileges and that the patient meets or has met medical necessity to require an inpatient IPI level of care meeting a minimumof two midnights or is on the CMS inpatient only procedure list (status C) due to possible abscess requiring IV antibiotics. Hollie Perez MD 07/06/2022 ROS: non verbal. Talked to caregiver at bedside. Noted did not eat as much but as bubbly this morning. Vomited during my visit which is not typical per caregiver. Does not seem to be having pain per caregiver. VITALS: Vitals Range last 24 hrs Temperature Temp: [36.1 ??C (96.9 ??F)-36.8 ??C (98.2 ??F)] Heart Rate Heart Rate: [81] Blood Pressure BP: (80-105)/(47-64) Respiratory Rate Resp: [15-18] SpO2 SpO2: [91 %-100 %] Intake/Output Summary (Last 24 hours) at 07/06/2022 1407 Last data filed at 07/05/20221999 Gross per 24 hour Intake 0 ml Output 2.5 ml Net -2.5 ml No data found. Body mass index is 19.75 kg/m??. Estimated Creatinine Clearance: 247 mL/min (A) (based on SCr of 0.26 mg/dL (L)).. PHYSICAL EXAM: CONSTITUTIONAL: In bed, non-toxic HEENT: Anicteric sclera CHEST: RRR, LUNGS: Lungs clear to auscultation anteriorly ABDOMEN: soft, BS present, not grimacing to palpation of RUQ, abdomen EXTREMITIES: contractures, no edema LABS: Recent Labs 07/05/2253007/04/22 0607/03/22 1008 WBC 3.4* 8.3 3.2* HGB 7.7* 8.3* 9.9* HCT 25.4* 26.0* 32.2* PLATELET 240 244 307 Recent Labs 07/06/2262007/05/22 0531 07/04/22 06 NA 138 142 134* K 3.6 3.8 4.1 CL 104 108* 100 CO2 Not Perf 25 24 BUN 4* 6* 8 CREATININE 0.26* 0.29* 0.34* Recent Labs 03/12/23 0621 03/11/23 0531 AST 25 39* ALT 57* 74* ALKPHOS 199* 209* BILITOT 0.3 0.4 BILIDIR 0.1 0.1 Recent Labs 07/06/22 0621 07/05/22 0531 07/04/22 0607 CALCIUM 8.6 8.4* 8.4* No results for input(s): PT, INR, PTT in the last 168 hours. No results for input(s): CK, TROPONINT in the last 168 hours. INPATIENT MEDICATIONS: Scheduled ??? cefTRIAXone 2 g Intravenous Q24H ??? senna-docusate 2 tablet Oral BID ??? miconazole Topical (Top) BID ??? sodium chloride 0.9 % (flush) 5 mL Intravenous BID ??? enoxaparin 30 mg Subcutaneous Nightly ??? baclofen 10 mg Oral BID ??? multivitamin with minerals 1 tablet Oral Daily Continuous infusions: ??? sodium chloride 0.9% PRN: prochlorperazine, ondansetron, polyethylene glycoL (MIRALAX) oral powder, benzonatate, bisacodyL, acetaminophen, sodium chloride 0.9 % (flush), lidocaine Studies reviewed in eDH. Remarkable for the following: FSBG Trend: No results for input(s): POCGLU in the last 72 hours. MICRO: No results for input(s): URINECULTURE in the last 720 hours. Recent Labs 06/25/22 1511 06/25/22 1512 GRAMSTAIN Many Neutrophils seen No microorganisms seen. Many Neutrophils seen No microorganisms seen. BFCX No growth No growth Recent Labs 06/25/22 0855 07/01/22202007/03/22 2245 07/03/22 2305 BLOODCX No growth at 5 days. No growth at 5 days. No growth at 4 days. No growth at 2 days. Escherichia coli detected by PCR Isolate saved. If future testing is required, contact the Microbiology Marine Electronics Technician. * ECG: Recent Labs 07/04/22 0016 DIAGLINE Sinus tachycardia Nonspecific T wave abnormality Abnormal ECG When compared with ECG of 01-JUL-2022 14:17, ST no longer elevated in Inferior leads Nonspecific T wave abnormality, worse in Lateral leads QTCCALC 521 VASCULAR: No results for input(s): VBTEXTRPT in the last 720 hours. IMAGING: Results for orders placed or performed during the hospital encounter of 06/24/22 CT Lumbar Spine w Contrast (Exam End: 06/24/2022 6:27 PM) Impression There are 2 irregular collections within the posterior subcutaneous fat of the lumbar region. The more superior collection appears to have deep extension to the level of the L1 and L2 lamina on the left side, but evaluation is marred by artifact. Findings are nonspecific, but infected collection is a possibility. Denser soft tissue collection centered about the dislocated right iliac screw was present on prior study but better visualized on current study. This may represent a chronic organized hematoma. Thank you for letting us participate in the care of this patient. If you are a health care provider and have any questions regarding this report, please contact the number below. For patients who have questions please contact the health critical care specialist that requested your imaging first. Electronically signed by: Jamaal Villafuerte [facility] ([phone]), at 06/24/2022 6:56 PM XR Chest One View (Exam End: 07/02/2022 5:04 PM) Impression 1. No focal pneumonia. 2. Stable appearance of the posterior spinous fusion hardware and chest. Thank you for letting us participate in the care of this patient. If you are a health care provider and have any questions regarding this report, please contact the number below. For patients who have questions please contact the health critical care specialist that requested your imaging first. Electronically signed by: Enid Vargas MD, [facility] ([phone]), at 07/02/2022 11:[address] Lumbar Spine w Contrast (Exam End: 07/03/2022 5:52 PM) Impression Loculated collections in the dorsal subcutaneous fat and likely right gluteal musculature, slightly decreased in size at L3-4 and T12. No peripheral enhancement. Please clinically correlate for signs/symptoms of infection. Thank you for letting us participate in the care of this patient. If you are a health care provider and have any questions regarding this report, please contact the number below. For patients who have questions please contact the health critical care specialist that requested your imaging first. Electronically signed by: Zina Renae MD, [facility] ([phone]), at 07/03/2022 6:[address] Abdomen & Pelvis w Contrast (Exam End: 07/05/2022 4:07 PM) Impression 1. Stable and smaller subcutaneous and para midline soft tissue collections extending from the skin to the edge of the lumbar spine and hardware. 2. Proctitis. 3. Cannot distinguish left lower lobe collapse from pneumonia. 4. Nonobstructing left nephrolithiasis. 5. Thick-walled bladder. Cystitis is not excluded. Thank you for letting us participate in the care of this patient. If you are a health care provider and have any questions regarding this report, please contact the number below. For patients who have questions please contact the health critical care specialist that requested your imaging first. Electronically signed by: Nathalie Whitaker MD, [facility] ([phone]), at 07/05/2022 5:38 PM * Willis Calero, - 07/06/2022 9:06 AM EDT INTERVENTIONAL RADIOLOGY Inpatient Progress Note Admitted 06/24/2022 Procedure(s): Paraspinal drain Post-procedure day: #2 Time of patient encounter: 856 24 Hour Events: - afebrile, labs similar to prior - minimal drain output ~2.5cc Last Value 24 Hour Range Temperature 36.2 ??C (97.2 ??F) Temp: [36.2 ??C (97.2 ??F)-36.8 ??C (98.2 ??F)] Heart Rate 81 Heart Rate: [81] Blood Pressure 97/64 BP: (80-105)/(47-64) Respiratory Rate 16 Resp: [16-18] SpO2 96 % SpO2: [91 %-97 %] Physical Exam GEN No distress, A&O CARDS RRR LUNGS No acute respiratory distress ABD Soft, non tender, nondistended BACK Lumbar paraspinal drain with <2cc of serous/serosan output in the connecting tube. DressingCDI Drains/Tubes: Paraspinal catheter Labs: Reviewed Micro: NA Imaging: NA Assessment: 27 y.o. female w/ PMH of CP with spastic quadriplegia loculated paraspinal collections at L3-L4, who underwent 8Fr paraspinal drain placement on 07/04/22. Drain is in appropriate position with minimal output. Plan: - monitor drain output - forward flush 5cc per day - IR to continue to follow peripherally. - IR follow up ordered, shortage worker notified. Willis Calero DO, MBA Interventional Radiology 07/06/2022 [id number] * Paige Gonzalez RN - 07/06/2022 5:40 AM EDT OUTCOME SUMMARY: Pt??alert but nonverbal, MARYA orientation, VSS,??no pain,??no shortness of breath, and no chest pain??noted. O2@RA. IV antibiotic given per JUN. No BM on this shift Pt remained free from falls during this shift. Assessment as filled, bed in lowest position, all belongings and call light within reach. ?? PLAN MOVING FORWARD: Pain Management Vitals/Labs Diet restrictions Falls prevention D/C ? INDIVIDUALIZED FALL PREVENTION INTERVENTIONS: ?? Patient-specific fall risk factors per assessment: [current deficits]:?High fall risk,??paraplegia, IV tubing.? Assistance [level of assistance required for transfers and ambulation]:?Total??2 person??w/lift ?? Supervision [direct monitoring required during toileting and ADLs]:?Total ?? Surveillance [facility]continuous indirect monitoring[facility] near nurses' station Rounding? Patient-specific fall prevention interventions for sensory deficits provided, if applicable:?[X]No * Azucena Ryan RN - 07/05/2022 5:23 PM EST OUTCOME EVALUATION NOTE: OUTCOME SUMMARY: Patient??is??alert??mostly??nonverbal,??except for a few words?Unable to assess orientation level. vss but hypotensive most of the shift. Pt received 500cc bolus this morning for BP in the 70s. Daily 5cc drain flush, output on this shift 2.5cc. Pt endorsed 1X episode of N/V prn zofran administered with good effect. Pt went down for a ABD/pelvis CT. Pt is still not taking PO intake, per career guidance technician have concerns for strep. No BM on this shift. No further concerns from family and caregiver at this time, Safety maintained PLAN MOVING FORWARD: Continue with Cefepime IV abx Monitor VS and drain output Encourage PO intake D/c planning ?? INDIVIDUALIZED FALL PREVENTION INTERVENTIONS: Patient-specific fall risk factors per assessment: [current deficits]: High fall risk,??paraplegia,IV tubing.?? Assistance [level of assistance required for transfers and ambulation]: Assist X2 with lift (Total) Supervision [direct monitoring required during toileting and ADLs]: Total hands on ?? Surveillance [continuous indirect monitoring]: Masimo, purposeful rounding ?? Patient-specific fall prevention interventions for sensory deficits provided, if applicable: n/a CARE PLAN GOAL OUTCOME EVALUATION: * Shawn Woodard MD - 07/05/2022 3:14 PM EST Images from the original note were not included. DEPARTMENT OF INFECTIOUS DISEASE & [facility]ATIONAL [facility] INFECTIOUS DISEASE PROGRESS NOTE Reason for follow up: subcutaneous loculated fluid collections and suspected R gluteal abscess, E.coli bacteremia Major 24 Hour Events: One of two sets of blood cultures from 07/03 growing E.coli. Nothing able to beaspirated from subcutaneous fluid collections so no culture, CARMELLA drain placed. Tmax 100 over the past 24 hours, BP trending down and most recently 77/43. Subjective: Patient is sleeping/lethargic on my exam but I was able to take history from family member at bedside. She notes that the patient has been lethargic over the past two days and has not been eating or drinking. Tana has not complained about abdominal pain but did throw up around 1 hour ago. Review of systems: Unable to obtain due to patient clinical status Antimicrobials: Cefepime 07/04 Vancomycin 07/04 Physical Exam: Temp: [35.9 ??C (96.6 ??F)-37.8 ??C (100 ??F)] Heart Rate: [81] Resp: [18-20] BP: (77-109)/(39-74) SpO2: [92 %-100 %] Heart Rate from SpO2: [73 bpm-114 bpm] GENERAL APPEARANCE: Lethargic, does not open eyes or respond to questions LUNGS: Breath sounds are equal and clear bilaterally. No wheezes, rhonchi, or rales. HEART: Regular rate and rhythm with normal S1 and S2. No murmurs ABDOMEN: Soft, no masses noted. No tenderness to palpation. CARMELLA drain with scant, clear watery sanguinous drainage. Labs: CBC: Recent Labs 07/05/22 0531 07/04/22 0607 07/03/22 1008 WBC 3.4* 8.3 3.2* HGB 7.7* 8.3* 9.9* PLATELET 240 244 307 Chemistry: Recent Labs 07/05/22 0531 07/04/22 0607 07/02/22 0615 NA 142 134* 134* K 3.8 4.1 4.0 CL 108* 100 100 CO2 25 24 24 BUN 6* 8 5* CREATININE 0.29* 0.34* 0.24* GLUCOSE 85 114 91 Recent Labs 07/05/22 0531 07/04/22 0607 07/02/22 0615 07/01/22 1814 06/30/22 0429 06/29/22 0558 06/28/22 0538 CALCIUM 8.4* 8.4* 8.7 -- < > 9.0 9.1 MAGNESIUM -- -- -- 0.74 -- 0.88 0.78 < > = values in this interval not displayed. LFT's: Recent Labs 07/05/22 0531 BILITOT 0.4 BILIDIR 0.1 ALBUMIN 3.1* ALKPHOS 209* ALT 74* AST 39* Microbiology: 07/03 blood culture: 1/2 sets with GNR in anaerobic bottle by gram stain, E.coli by PCR pending drug sensitivities Fluid ?? Specimen Comment: Superior spinal fluid collection 0 Result Notes Component 5 d ago Body Fluid Culture No growth ?? : Hand, Right; Blood Pediatric Specimen Comment: #2 0 Result Notes Component 5 d ago Blood Culture No growth at 5 days. ? New Notable Imaging/Studies: Reviewed CT lumbar spine 07/04/22 IMPRESSION Loculated collections in the dorsal subcutaneous fat and likely right gluteal musculature, slightly decreased in size at L3-4 and T12. No peripheral enhancement. Please clinically correlate for signs/symptoms of infection. Diagnosis: E.coli bacteremia, soft tissue and R gluteal abscess Summary: 27 year-old female who is found to have loculated subcutaneous fluid collections, right gluteal abscess, inflammation/myositis of psoas muscle, and is now found to have E.coli bacteremia. 1. E.coli bacteremia - new finding. Blood pressures soft over the last 48 hours and receiving fluidresuscitation. She does not have tenderness to palpation of the abdomen but did vomit today and hasslightly uptrending LFTs, so agree with obtaining CT a/p to investigate intraabdominal source of bacteremia. 2. Loculated fluid collections, right gluteal fluid collection, and muscle inflammation - IR unableto aspirate fluid from the collections, but I wonder whether that is due to the loculated nature ofthe collections. If there is nothing found on CT a/p today, discussing with IR/surgery about definitive drainage (especially given it previously drained purulence) would be the next step. Recommendations: -stop Vancomycin as we now have a target for antibiotic choice -continue cefepime 2g q8h -agree with CT a/p to look for source of bacteremia -repeat blood culture -Daily monitoring of CBC -Monitor ABX toxicity with CBC and CMP -Temperature curve -Repeat blood cultures if temperature greater than 101.5 -Rest of management per primary team Thank you for allowing us to participate in the care of this patient. Infectious diseases team will: Continue to follow [x] Sign off from this case. Please call us back for any further question [] Moise Mitchell MD Infectious Disease Fellow 07/05/22 I interviewed and examined the patient independently from Dr. Mitchell, but agree with her findings and recommendations after discussion with her and review of her note. I also reviewed with her all pertinent labs, microbiology and radiology. The identification of E.coli bacteremia is somewhat surprising so merits further work up, but also allows us to narrow therapy as ove; with further recommendations based on this work up and sensitivity testing on the bacteria. Shawn Woodard MD * GalileaWillis tavarez DO - 07/05/2022 10:47 AM EST INTERVENTIONAL RADIOLOGY Inpatient Progress Note Admitted 06/24/2022 Procedure(s): Paraspinal drain Post-procedure day: #1 Time of patient encounter: 756 24 Hour Events: - underwent paraspinal drain placement - minimal drain output Last Value 24 Hour Range Temperature 37 ??C (98.6 ??F) Temp: [36.6 ??C (97.8 ??F)-38.8 ??C (101.8 ??F)] Heart Rate 91 Heart Rate: -- Blood Pressure (!) 86/39 BP: (85-109)/(39-74) Respiratory Rate 18 Resp: [18-20] SpO2 96 % SpO2: [94 %-100 %] Physical Exam GEN No distress, A&O CARDS RRR LUNGS No acute respiratory distress ABD Soft, non tender, nondistended BACK Lumbar paraspinal drain with <2cc of serous/serosan output in the connecting tube. DressingCDI Drains/Tubes: Paraspinal catheter Labs: Reviewed Micro: NA Imaging: NA Assessment: 27 y.o. female w/ PMH of CP with spastic quadriplegia loculated paraspinal collections at L3-L4, who underwent 8Fr paraspinal drain placement on 07/04/22. Drain is in appropriate position with minimal output. Plan: - monitor drain output - forward flush 5cc per day - IR to continue to follow up Willis Calero DO, MBA Interventional Radiology 07/04/2022 [id number] * Hollie Perez MD - 07/05/2022 8:34 AM EST Hospital Medicine Attending Daily Progress Note DATE OF ADMISSION: 06/24/2022 Hospital Day 11 days Active Hospital Problems Diagnosis ??? 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 Resolved Hospital Problems No resolved problems to display. INTERVAL HISTORY/ Subjective: -1/2 blood cultures returned with EColi - started back on cefepime -IR attempted re-aspiration - not able to aspirate fluid (questioned if granulation tissue) - drainplaced -Started on IVF -Hypotension to SBP 70s this morning ASSESSMENT: Tana is a 27 y/o with h/o TBI with spastic quadriplegia, CP, s/p intrathecal baclofen pump and removal complicated by site infection in past, nonverbal, scoliosis, s/p PSF an bilateral [place] '11 admitted with increasing redness and tenderness over the midline surgical scar on the back for several weeks. She had been treated as cellulitis as an outpatient with keflex then cefepime vanc (inpt admission [place] - no evidence of draining wounds or areas , not septic, no loosing of hardware, US hsowed 8 x 9mm subcutaneous fluid collection evaluated by ortho - not drained; discharged on cefpodoxime), referred to for further management. CT showed two irregular fluid collections within the posterior subcutaneous fat at the lumbar region with possible deep extension to the level of L1 and L2 lamina onthe left side. Denser soft tissue collection around the dislocated right iliac screw likely chronicorganized hematoma. She was evaluated by spine surgery with recommendations for IR guided aspiration and drainage (done 06/25). Cultures from her drain has remained no growth to date. Patient developed fever 07/04, LA 2.6, relative hypotension - repeat CT shows persistent fluid collection with possible extension to gluteal muscles and drain placed by IR 07/04 (not able to aspirate -?granulation tissue). Blood cultures have now returned with EColi. UA unrevealing. AP, AST/ALT mildelevations (no prior this admit). Not clear if fluid collections related to EColi or if alternate source (no organisms on gram stain from 06/25). Vomited today. Will pursue CT A/P to eval for abdominalsource. PLAN: # Possible spinal abscess/Back cellulitis: -Concern for abscess formation due to discomfort and overlying redness over previous spinal surgeryincision. - S/p IR aspiration with CARMELLA drain in place from 06/25. Superior drain appeared like old blood, while inferior collection appeared purulent on drainage. CARMELLA drain removed by IR on 07/01/2022. -Attempt at re-aspiration on 07/04 - no fluid aspiration - drain placed -Follow-up fluid cultures - NGTD -Cefepime as below for EColi; stop Vanc #Sepsis with episodic tachycardia/relative hypotension, LA 2.6, fever #EColi bacteremia -? From spinal collections or other source -Continue with IV fluids - bolus prn hypotension -Continue cefepime -Repeat culture tomorrow given source not clear -CT A/P -Appreciate ID # Parainfluenza, URTI - Cont supportive care -Minimal cough now per caregiver at bedside # TBI with spastic quadraplegia/Cerebral palsy/Scoliosis: Continue home baclofen 10mg PO BID and APAP as needed. IV access/ MIVF PIV Tubes/ Drains CARMELLA drain DVT prophylaxis Enoxaparin Wound care none Goals of care, communication with family Full code TRANSMISSION SPECIALIST, nutrition recommendations, diet regular Anticipated Disposition, PT/OT recommendations Home Team Pager ( Coverage 17/11) [phone] PCP Lorna Bal APRN Attestation IPI Certification I certify that I am a D-H credentialed attending provider with admitting privileges and that the patient meets or has met medical necessity to require an inpatient IPI level of care meeting a minimumof two midnights or is on the [facility] inpatient only procedure list (status C) due to possible abscess requiring IV antibiotics. Hollie Perez MD 07/05/2022 ROS: non verbal. Talked to caregiver at bedside. Noted did not eat as much but as bubbly this morning. Vomited during my visit which is not typical per caregiver. Does not seem to be having pain per caregiver. VITALS: Vitals Range last 24 hrs Temperature Temp: [35.9 ??C (96.6 ??F)-37.8 ??C (100 ??F)] Heart Rate Heart Rate: -- Blood Pressure BP: (77-109)/(39-74) Respiratory Rate Resp: [18-20] SpO2 SpO2: [93 %-100 %] Intake/Output Summary (Last 24 hours) at 07/05/2022 0834 Last data filed at 07/04/2022 1200 Gross per 24 hour Intake 0 ml Output -- Net 0 ml No data found. Body mass index is 19.75 kg/m??. Estimated Creatinine Clearance: 221.4 mL/min (A) (based on SCr of 0.29 mg/dL (L)).. PHYSICAL EXAM: CONSTITUTIONAL: In bed, non-toxic HEENT: Anicteric sclera CHEST: RRR, LUNGS: Lungs clear to auscultation anteriorly ABDOMEN: soft, BS present, not grimacing to palpation of RUQ, abdomen EXTREMITIES: contractures, no edema LABS: Recent Labs 07/05/22 0531 07/04/22 0607 07/03/22 1008 WBC 3.4* 8.3 3.2* HGB 7.7* 8.3* 9.9* HCT 25.4* 26.0* 32.2* PLATELET 240 244 307 Recent Labs 07/05/22 0531 07/04/22 0607 07/02/22 0615 NA 142 134* 134* K 3.8 4.1 4.0 CL 108* 100 100 CO2 25 24 24 BUN 6* 8 5* CREATININE 0.29* 0.34* 0.24* Recent Labs 07/05/22 0531 AST 39* ALT 74* ALKPHOS 209* BILITOT 0.4 BILIDIR 0.1 Recent Labs 07/05/22 0531 07/04/22 0607 07/02/22 0615 CALCIUM 8.4* 8.4* 8.7 No results for input(s): PT, INR, PTT in the last 168 hours. No results for input(s): CK, TROPONINT in the last 168 hours. INPATIENT MEDICATIONS: Scheduled ??? ceFEPime 2 g Intravenous Q8H ??? senna-docusate 2 tablet Oral BID ??? miconazole Topical (Top) BID ??? sodium chloride 0.9 % (flush) 5 mL Intravenous BID ??? enoxaparin 30 mg Subcutaneous Nightly ??? baclofen 10 mg Oral BID ??? multivitamin with minerals 1 tablet Oral Daily Continuous infusions: PRN: ondansetron, polyethylene glycoL (MIRALAX) oral powder, benzonatate, bisacodyL, acetaminophen,sodium chloride 0.9 % (flush), lidocaine Studies reviewed in eDH. Remarkable for the following: FSBG Trend: No results for input(s): POCGLU in the last 72 hours. MICRO: No results for input(s): URINECULTURE in the last 720 hours. Recent Labs 06/25/22 1511 06/25/22 1512 GRAMSTAIN Many Neutrophils seen No microorganisms seen. Many Neutrophils seen No microorganisms seen. BFCX No growth No growth Recent Labs 06/25/22 0855 07/01/22202007/03/22 2245 07/03/22 2305 BLOODCX No growth at 5 days. No growth at 5 days. No growth at 3 days. No growth at 1 day. Escherichia coli detected by PCR Susceptibility testing in progress * ECG: Recent Labs 07/04/22 0016 DIAGLINE Sinus tachycardia Nonspecific T wave abnormality Abnormal ECG When compared with ECG of 01-JUL-2022 14:17, ST no longer elevated in Inferior leads Nonspecific T wave abnormality, worse in Lateral leads QTCCALC 521 VASCULAR: No results for input(s): VBTEXTRPT in the last 720 hours. IMAGING: Results for orders placed or performed during the hospital encounter of 06/24/22 CT Lumbar Spine w Contrast (Exam End: 06/24/2022 6:27 PM) Impression There are 2 irregular collections within the posterior subcutaneous fat of the lumbar region. The more superior collection appears to have deep extension to the level of the L1 and L2 lamina on the left side, but evaluation is marred by artifact. Findings are nonspecific, but infected collection is a possibility. Denser soft tissue collection centered about the dislocated right iliac screw was present on prior study but better visualized on current study. This may represent a chronic organized hematoma. Thank you for letting us participate in the care of this patient. If you are a health care provider and have any questions regarding this report, please contact the number below. For patients who have questions please contact the health critical care specialist that requested your imaging first. Electronically signed by: Jamaal Villafuerte [facility] ([phone]), at 06/24/2022 6:56 PM XR Chest One View (Exam End: 07/02/2022 5:04 PM) Impression 1. No focal pneumonia. 2. Stable appearance of the posterior spinous fusion hardware and chest. Thank you for letting us participate in the care of this patient. If you are a health care provider and have any questions regarding this report, please contact the number below. For patients who have questions please contact the health critical care specialist that requested your imaging first. Electronically signed by: Enid Vargas MD, [facility] ([phone]), at 07/02/2022 11:[address] Lumbar Spine w Contrast (Exam End: 07/03/2022 5:52 PM) Impression Loculated collections in the dorsal subcutaneous fat and likely right gluteal musculature, slightly decreased in size at L3-4 and T12. No peripheral enhancement. Please clinically correlate for signs/symptoms of infection. Thank you for letting us participate in the care of this patient. If you are a health care provider and have any questions regarding this report, please contact the number below. For patients who have questions please contact the health critical care specialist that requested your imaging first. Electronically signed by: Zina Renae MD, [facility] ([phone]), at 07/03/2022 6:31 PM * Paige Gonzalez RN - 07/05/2022 4:45 AM EST OUTCOME SUMMARY: Pt alert but nonverbal, MARYA orientation, VSS, no pain,??no shortness of breath, and no chest pain noted. O2@RA. IV antibiotic and continuous fluids given per JUN. No BM on this shift Pt remained free from falls during this shift. Assessment as filled, bed in lowest position, all belongings and call light within reach. ?? PLAN MOVING FORWARD: Pain Management Vitals/Labs Diet restrictions Falls prevention D/C ? INDIVIDUALIZED FALL PREVENTION INTERVENTIONS: ?? Patient-specific fall risk factors per assessment: [current deficits]:?High fall risk, paraplegia, IV tubing.? Assistance [level of assistance required for transfers and ambulation]:?Total??2 person w/lift ?? Supervision [direct monitoring required during toileting and ADLs]:?Total ?? Surveillance [continuous indirect monitoring[facility] near nurses' station Rounding? Patient-specific fall prevention interventions for sensory deficits provided, if applicable:?[X]No * Azucena Ryan RN - 07/04/2022 6:11 PM EST OUTCOME EVALUATION NOTE: OUTCOME SUMMARY: Patient??is alert mostly??nonverbal, except for a few words Unable to assess orientation level. Tachycardic in the 110s and febrile all shift. RN was able to give pt's tylenol at 8am with good effect. Pt is not very cooperating today. Pt went down to IR for fluid aspiration, back with drain in backto suction, CDI. No drainage seen. Caregiver brought up concern about pt's back of mouth looking red and swollen with concerns about Strep. Pt refused to open her mouth for this RN. Concern passed onto the team. Pt endorsed vomiting post IR X2, PRN zofran administered with good effect .Caregiver remains at bedside providing daily and incontinence care. Safety maintained. ?? PLAN MOVING FORWARD: IV abx Monitor VS and drain output Encourage PO intake D/c planning INDIVIDUALIZED FALL PREVENTION INTERVENTIONS: Patient-specific fall risk factors per assessment: [current deficits]: High fall risk, paraplegia, IV tubing.?? Assistance [level of assistance required for transfers and ambulation]: Assist X2 with lift (Total) Supervision [direct monitoring required during toileting and ADLs]: Total hands on Surveillance [continuous indirect monitoring]: Masimo, purposeful rounding Patient-specific fall prevention interventions for sensory deficits provided, if applicable: n/a CARE PLAN GOAL OUTCOME EVALUATION: * Ty Alonso RN - 07/04/2022 3:19 PM EST ANGIO NURSING DATABASE Name: TANA SHELTON Date of : 1995 AGE: 27 y.o. [address]: [address] [place] [id number] Phone: [phone] (home) Mobile: Telephone Information: Referring Provider: Lorna Bal REASON FOR VISIT: Order Questions Answers Is the patient on anticoagulant / antiplatelet therapy ? Low Molecular Weight Heparin Reason for exam and clinical history: Persisent fever, fluid collection in lumbar region What labs need to be collected during imaging study? cell count, gram stain, culture and sensitivity Is the patient ? No Is the patient taking any anticoagulants and/or antiplatelet meds? Yes Is patient awake, alert, and consentable? No Does patient need assist to stand? Yes Does Patient have any mobility limitations (e.g. spinal precautions) No Does patient require constant supervision? Yes Is patient over 450 lbs (200 kg) No Does patient have a pacemaker? No Does patient have a Chest Tube? No Is there a language / communication barrier? Yes Does patient have any additional special needs or accommodation required? caregiver at bedside 17/11; past TBI and nonverbal Planned procedure: Paraspinal drain placement Labs to [...] [Transparent Dressings] Itching and Dermatitis Please use [id number] ??? Penicillins Pertinent PMH: Patient Active Problem List Diagnosis Code ??? 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 Acquired dysplasia of hip, bilateral M21.859 ??? Edema leg R60.0 ??? Scoliosis M41.9 ??? Spasticity R25.2 ??? Presence of intrathecal baclofen pump Z97.8 ??? Right leg pain M79.604 ??? Fracture of femur, distal S72.409A ??? 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 M46.20 Date/Procedure Meds Given/Comments 06/25/22 Low back drain placement Versed 2 mg IV ??07/01/22 drain removed ??local ??07/04/2022 Lower back drain placement ??IV Versed 0.5 mg ? 1530 to procedure room IR 3 via stretcher. Onto table Prone/side. All monitors, O2, safety strap inplace. Meds per protocol. Laboratory Results: Lab Results Component Value Date CREATININE 0.34 (L) 07/04/2022 Lab Results Component Value Date K 4.1 07/04/2022 Lab Results Component Value Date PLATELET 244 07/04/2022 * Sergey Keane MD - 07/04/2022 1:55 PM EST Images from the original note were not included. DEPARTMENT OF INFECTIOUS DISEASE & [facility] INFECTIOUS DISEASE PROGRESS NOTE Reason for follow up: Spinal collections Major 24 Hour Events: Patient with episodes of fever and hypotension during the nights, sepsis alert triggered patient was stared on ABX Subjective:Case discussed during rounds with ID team and the attending Dr. Samuel Patient is seen and examined at bedside. Unable to provide history. Info obtained trough chart revision and nursing staff. Fever up to 38.4, hypotension 89/58 Review of systems: Unable to obtain due to patient clinical status Antimicrobials: Cefepime 07/04 Vancomycin 07/04 Physical Exam: Temp: [37.2 ??C (99 ??F)-38.8 ??C (101.8 ??F)] Heart Rate: -- Resp: [16-18] BP: (85-119)/(43-75) SpO2: [94 %-98 %] Heart Rate from SpO2: [104 bpm-157 bpm] GENERAL APPEARANCE: In no acute distress. VITAL SIGNS: Reviewed HEENT: Oropharynx is clear. Mouth no lesions. NECK: No lymphadenopathy or tenderness. LUNGS: Breath sounds are equal and clear bilaterally. No wheezes, rhonchi, or rales. HEART: Regular rate and rhythm with normal S1 and S2. No murmurs ABDOMEN: Soft. No mass, tenderness, guarding, or rebound. No organomegaly or hernia. Bowel sounds are present. EXTREMITIES: No cyanosis, clubbing, or edema. NEUROLOGIC: Awake SKIN: No lesions, nodules or rashes are noted Labs: CBC: Recent Labs 07/04/22 0607 07/03/22 1008 07/02/22 0615 WBC 8.3 3.2* 3.3* HGB 8.3* 9.9* 9.6* PLATELET 244 307 336 Chemistry: Recent Labs 07/04/22 0607 07/02/22 0615 07/01/22 0550 06/29/22 0558 06/28/22 0538 NA 134* 134* 138 < > 137 K 4.1 4.0 4.1 < > 4.0 CL 100 100 103 < > 102 CO2 24 24 24 < > 25 BUN 8 5* 10 < > 11 CREATININE 0.34* 0.24* 0.25* < > 0.27* GLUCOSE 114 91 -- -- 95 < > = values in this interval not displayed. Recent Labs 07/04/22 0607 07/02/22 0615 07/01/22 1814 07/01/22 0550 06/30/22 0429 06/29/22 0558 06/28/22 0538 CALCIUM 8.4* 8.7 -- 9.0 < > 9.0 9.1 MAGNESIUM -- -- 0.74 -- -- 0.88 0.78 < > = values in this interval not displayed. LFT's: No results for input(s): BILITOT, BILIDIR, ALBUMIN, ALKPHOS, ALT, AST in the last 7068 hours. Microbiology: Fluid ?? Specimen Comment: Superior spinal fluid collection 0 Result Notes Component 5 d ago Body Fluid Culture No growth ?? : Hand, Right; Blood Pediatric Specimen Comment: #2 0 Result Notes Component 5 d ago Blood Culture No growth at 5 days. ? New Notable Imaging/Studies: Reviewed CT lumbar spine 07/04/22 IMPRESSION Loculated collections in the dorsal subcutaneous fat and likely right gluteal musculature, slightly decreased in size at L3-4 and T12. No peripheral enhancement. Please clinically correlate for signs/symptoms of infection. Diagnosis: Spinal collection, query abscess Summary: 27 year-old female with a PMH of??TBI with spastic quadriplegia, CP, scoliosis, 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 and??prior bilateral Girdlestone??in??2010??was admitted to on 06/24 after her mother noticed she had??increasing redness and tenderness over the midline surgical scar on the back seen in OSH concerns of cellulitis, she was on cephalexin--> cefepime + vancomycin --> cefpodoxime despite ABX symptoms persited.??CT performed on 06/24 showed two??irregular collections within the posterior subcutaneous fat of the lumbar region. On 06/25 she underwent IR guided drainage with findings of old blood from the superior collection, while the??more inferior collection drained purulent material, and a drain was placed.??Cultures with no growth to date which is not entirely surprising since she was on antibiotics when specimen was collected. There was a possibility that her collection were sterile in nature vs an indolent organism such as C.acnes?. Patient was monitored off ABX for a week,she was hemodynamically stable, afebrile, with normal WBC count. In absence of identified pathogen or ongoing SIRS we decided to monitor off ABX, with active surveillance of acute phase reactants andpossible repeating imaging. Drain was removed by IR. Patient was slotted for discharge when she developed fever and hypotension prompting initiation of ABX and repeating lumbar imaging showing loculated collections. Unfortunately given the urgency of the situation, ABX were initiated before drainage was obtain. As per now will recommend stop ABX, and obtain drainage as soon as possible in an attempt to increase culture yield. ABX can be resumed after procedure. Recommendations: -Hold ABX -Obtain IR drainage of spinal lesion -Resume ABX after procedure -Daily monitoring of CBC -Monitor ABX toxicity with CBC and CMP -Temperature curve -Repeat blood cultures if temperature greater than 101.5 -Rest of management per primary team Thank you for allowing us to participate in the care of this patient. Infectious diseases team will: Continue to follow [x] Sign off from this case. Please call us back for any further question [] Sergey Doan MD Infectious Disease Fellow Pager [phone] 07/04/22 (Attending addendum to follow) Associated attestation - Jamaal Hills MD - 07/04/2022 5:39 PM EST I have seen and examined the patient and discussed the assessment and plan with the fellow. I reviewed the fellow's note and I agree with the documented findings and recommendations. Recurrent fevers and persistent fluid collection abutting her spinal hardware warrant a repeat aspiration for culture. Reasonable to start ceftriaxone and vancomycin after you've obtained samples. Jamaal Hills MD ID Staff Physician * Ian Duarte MD - 07/04/2022 1:52 PM EST [facility] Attending Daily Progress Note DATE OF ADMISSION: 06/24/2022 Hospital Day 10 days Active Hospital Problems Diagnosis ??? 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 Resolved Hospital Problems No resolved problems to display. INTERVAL HISTORY/ Subjective: Patient was febrile with tachycardia, hypotension last night. Received IV fluid bolus, started on cefepime, vancomycin. 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 CT imaging showed 2 irregular fluid collections within the posterior subcutaneous fat at the lumbarregion with possible deep extension to the level of L1 and L2 lamina on the left side. Denser soft tissue collection around the dislocated right iliac screw likely chronic organized hematoma. She wasevaluated by spine surgery with recommendations for IR guided aspiration and drainage (done 06/25). Cultures from her drain has remained no growth to date. Antibiotics were stopped and monitored . Patient developed low grade fever initially but now has spiking fevers. Repeat CT shows persistent fluid collection with possible extension to gluteal muscles. Requested ID to reevaluate patient. PLAN: # Possible spinal abscess/Back cellulitis: Concern for abscess formation due to discomfort and overlying redness over previous spinal surgery incision. - S/p IR aspiration with CARMELLA drain in place. Superior drain appeared like old blood, while inferior collection appeared purulent on drainage. CARMELLA drain removed by IR on 07/01/2022. -Patient has repeat spiking fevers now. -Discussed with infectious disease consultant nurse. Patient will get a repeat aspiration today. -Start broad-spectrum antibiotics after fluid collection aspiration. # Fever: #Sepsis -Continue with IV fluids. -Start broad-spectrum antibiotics after fluid collection aspiration. # Episodic tachycardia: -Likely related to fevers and infection. n. # Parainfluenza, URTI - Cont supportive care -Minimal cough now per caregiver at bedside. # TBI with spastic quadraplegia/Cerebral palsy/Scoliosis: Continue home baclofen 10mg PO BID and APAP as needed. IV access/ MIVF PIV Tubes/ Drains CARMELLA drain DVT prophylaxis Enoxaparin Wound care none Goals of care, communication with family Full code TRANSMISSION SPECIALIST, nutrition recommendations, diet regular Anticipated Disposition, PT/OT recommendations Home Team Pager ( Coverage 17/11) [phone] PCP Lorna Bal APRN Attestation IPI Certification I certify that I am a [facility] credentialed attending provider with admitting privileges and that the patient meets or has met medical necessity to require an inpatient IPI level of care meeting a minimumof two midnights or is on the [facility] inpatient only procedure list (status C) due to possible abscess requiring IV antibiotics. Ian Duarte MD 07/04/2022 ROS: Patient is non verbal. Appears very tired. She is not interacting as she usually does. VITALS: Vitals Range last 24 hrs Temperature Temp: [37.2 ??C (99 ??F)-38.8 ??C (101.8 ??F)] Heart Rate Heart Rate: -- Blood Pressure BP: (85-119)/(43-75) Respiratory Rate Resp: [16-18] SpO2 SpO2: [94 %-98 %] Intake/Output Summary (Last 24 hours) at 07/04/2022 1352 Last data filed at 07/04/2022 0400 Gross per 24 hour Intake 1170 ml Output -- Net 1170 ml No data found. Body mass index is 19.75 kg/m??. Estimated Creatinine Clearance: 188.9 mL/min (A) (based on SCr of 0.34 mg/dL (L)).. PHYSICAL EXAM: CONSTITUTIONAL: Appears tired. HEENT: PERRLA, EOMI, (-) JVD CHEST: RRR, (-) murmur LUNGS: Lungs clear to auscultation (-) wheeze, (-) crackles ABDOMEN: soft, NABS, (-) tenderness, (-) hepatomegaly, (-) splenomegaly EXTREMITIES: (-) edema, bilateral lower extremities with disuse atrophy. SKIN: moist, (-) rash Back: CARMELLA drain removal site. Clean. LABS: Recent Labs 07/04/22 0607 07/03/22 1008 07/02/22 0615 WBC 8.3 3.2* 3.3* HGB 8.3* 9.9* 9.6* HCT 26.0* 32.2* 30.7* PLATELET 244 307 336 Recent Labs 07/04/22 0607 07/02/22 0615 07/01/22 0550 NA 134* 134* 138 K 4.1 4.0 4.1 CL 100 100 103 CO2 24 24 24 BUN 8 5* 10 CREATININE 0.34* 0.24* 0.25* No results for input(s): AST, ALT, ALKPHOS, BILITOT, BILIDIR in the last 168 hours. Recent Labs 07/04/22 0607 07/02/22 0615 07/01/22 0550 CALCIUM 8.4* 8.7 9.0 No results for input(s): PT, INR, PTT in the last 168 hours. No results for input(s): CK, TROPONINT in the last 168 hours. INPATIENT MEDICATIONS: Scheduled ??? senna-docusate 2 tablet Oral BID ??? miconazole Topical (Top) BID ??? sodium chloride 0.9 % (flush) 5 mL Intravenous BID ??? enoxaparin 30 mg Subcutaneous Nightly ??? baclofen 10 mg Oral BID ??? multivitamin with minerals 1 tablet Oral Daily Continuous infusions: ??? lactated Ringers 100 mL/hr (07/04/22 0941) PRN: ondansetron, Vancomycin Level - MAR Order Reminder, polyethylene glycoL (MIRALAX) oral powder,benzonatate, bisacodyL, acetaminophen, sodium chloride 0.9 % (flush), lidocaine Studies reviewed in eDH. Remarkable for the following: FSBG Trend: No results for input(s): POCGLU in the last 72 hours. MICRO: No results for input(s): URINECULTURE in the last 720 hours. Recent Labs 06/25/22 1511 06/25/22 1512 GRAMSTAIN Many Neutrophils seen No microorganisms seen. Many Neutrophils seen No microorganisms seen. BFCX No growth No growth Recent Labs 06/25/22 0855 07/01/222020 BLOODCX No growth at 5 days. No growth at 5 days. No growth at 2 days. ECG: Recent Labs 07/04/22 0016 DIAGLINE Sinus tachycardia Nonspecific T wave abnormality Abnormal ECG When compared with ECG of 01-JUL-2022 14:17, ST no longer elevated in Inferior leads Nonspecific T wave abnormality, worse in Lateral leads QTCCALC 521 VASCULAR: No results for input(s): VBTEXTRPT in the last 720 hours. IMAGING: Results for orders placed or performed during the hospital encounter of 06/24/22 CT Lumbar Spine w Contrast (Exam End: 06/24/2022 6:27 PM) Impression There are 2 irregular collections within the posterior subcutaneous fat of the lumbar region. The more superior collection appears to have deep extension to the level of the L1 and L2 lamina on the left side, but evaluation is marred by artifact. Findings are nonspecific, but infected collection is a possibility. Denser soft tissue collection centered about the dislocated right iliac screw was present on prior study but better visualized on current study. This may represent a chronic organized hematoma. Thank you for letting us participate in the care of this patient. If you are a health care provider and have any questions regarding this report, please contact the number below. For patients who have questions please contact the health critical care specialist that requested your imaging first. Electronically signed by: Jamaal Villafuerte [facility] ([phone]), at 06/24/2022 6:56 PM XR Chest One View (Exam End: 07/02/2022 5:04 PM) Impression 1. No focal pneumonia. 2. Stable appearance of the posterior spinous fusion hardware and chest. Thank you for letting us participate in the care of this patient. If you are a health care provider and have any questions regarding this report, please contact the number below. For patients who have questions please contact the health critical care specialist that requested your imaging first. Electronically signed by: Enid Vargas MD, [facility] ([phone]), at 07/02/2022 11:[address] Lumbar Spine w Contrast (Exam End: 07/03/2022 5:52 PM) Impression Loculated collections in the dorsal subcutaneous fat and likely right gluteal musculature, slightly decreased in size at L3-4 and T12. No peripheral enhancement. Please clinically correlate for signs/symptoms of infection. Thank you for letting us participate in the care of this patient. If you are a health care provider and have any questions regarding this report, please contact the number below. For patients who have questions please contact the health critical care specialist that requested your imaging first. Electronically signed by: Zina Renae MD, [facility] ([phone]), at 07/03/2022 6:31 PM * Paige Gonzalez RN - 07/04/2022 5:22 AM EST OUTCOME SUMMARY: Pt alert but nonverbal, MARYA orientation, no pain, no shortness of breath, and no chest pain noted. O2@RA. Pt's tempeture 101.1F at the beginning of the shift and one event of emesis. MD notified. Blood cultures, UA, lactate draw and Zofran ordered. Zofran given with positive effect. Pt's tempeture trending down during the shift. Pt HR 150 sustaining and BP 80s/40s MD notified, LR bolus ordered 3x. BP still having soft Bps. HR improving during this shift. No BM on this shift Pt remained free from falls during this shift. Assessment as filled, bed in lowest position, all belongings and call light within reach. PLAN MOVING FORWARD: Pain Management Vitals/Labs Diet restrictions Falls prevention D/C INDIVIDUALIZED FALL PREVENTION INTERVENTIONS: Patient-specific fall risk factors per assessment: [current deficits]: High fall risk, paraplegia, IV tubing. Assistance [level of assistance required for transfers and ambulation]: Total 2 person w/lift Supervision [direct monitoring required during toileting and ADLs]: Total Surveillance [continuous indirect monitoring]: [facility] near nurses' station Rounding Patient-specific fall prevention interventions for sensory deficits provided, if applicable: [X] No * Lilli Hughes RPH - 07/04/2022 12:03 AM EST Clinical Pharmacist Note - VancFD Tana Shelton [id number] 1995 Tana Shelton is a 27 y.o. female who is starting antibiotic therapy which includes intravenous vancomycin. Based on a review of the patient???s chart and/or conversation with the patient???s providers vancomycin is being used for empiric coverage of spinal abscess infection with a targeted goal of15 - 20 mcg/mL. The following Pharmacokinetic data has been evaluated: Wt Readings from Last 1 Encounters: 06/24/22 49 kg (108 lb) Ht Readings from Last 1 Encounters: 06/24/22 157.5 cm (5' 2) Labs: Creatinine clearance: Creatinine (mg/dL) Date Value 07/02/2022 0.24 (L) Dosing recommendations: ??? Based on this information, vancomycin therapy will be initiated with a one- time dose of 1000 mgto be given now followed by 1000mg q12h. ??? A full dosing regimen will be ordered upon complete pharmacist consultation to follow. We will continue to monitor the patient as long as she remains on vancomycin therapy. Thank you forthis consult and please page the care area pharmacist with any questions you may have. Alternately,during off-hours (9p-7a) you may call [phone] to contact a pharmacist. Lilli Hughes RPH * Azucena Ryan RN - 07/03/2022 6:07 PM EST OUTCOME EVALUATION NOTE: OUTCOME SUMMARY: Patient is alert mostly nonverbal, except for a few words Unable to assess orientation level. Tachycardic in the 110s . All other vital signs stable on RA. All scheduled medications administered, seeMAR.Caregiver at bedside providing daily and incontinence care. Safety maintained. PLAN MOVING FORWARD: D/c planning. Monitor VS. Monitor labs. INDIVIDUALIZED FALL PREVENTION INTERVENTIONS: Patient-specific fall risk factors per assessment: [current deficits]: Immobility Assistance [level of assistance required for transfers and ambulation]: ASSIST X2 with lift Supervision [direct monitoring required during toileting and ADLs]: Hands on Surveillance [continuous indirect monitoring]: Christina purposeful [place] Patient-specific fall prevention interventions for sensory deficits provided, if applicable: n/a CARE PLAN GOAL OUTCOME EVALUATION: * Ian Duarte MD - 07/03/2022 2:38 PM EST Hospital Medicine Attending Daily Progress Note DATE OF ADMISSION: 06/24/2022 Hospital Day 9 days Active Hospital Problems Diagnosis ??? 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 Resolved Hospital Problems No resolved problems to display. INTERVAL HISTORY/ Subjective: Patient was very tired/sleepy entire day with poor PO intake. Spiked temp of 38.4 last night. 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 CT imaging showed 2 irregular fluid collections within the posterior subcutaneous fat at the lumbarregion with possible deep extension to the level of L1 and L2 lamina on the left side. Denser soft tissue collection around the dislocated right iliac screw likely chronic organized hematoma. She wasevaluated by spine surgery with recommendations for IR guided aspiration and drainage (done 06/25). Cultures from her drain has remained no growth to date. She has low grade fever. Repeat blood cultures, UA, CXR did not reveal any source of infection. PLAN: # Possible spinal abscess/Back cellulitis: Concern for abscess formation due to discomfort and overlying redness over previous spinal surgery incision. - S/p IR aspiration with CARMELLA drain in place. Superior drain appeared like old blood, while inferior collection appeared purulent on drainage. CARMELLA drain removed by IR on 07/01/2022. - Cultures negative so far. - Repeat CT lumbar spine today due to recurrent low grade fevers. # Fever: Site of CARMELLA site looks clean. -Back without any erythema -No cough or sob noted. cxr without infiltrates. -UA not suggestive of UTI -Repeat CT lumbar spine today. # Episodic tachycardia: -Unclear etiology -Possibly related to poor PO intake, low grade fever, pain. # Parainfluenza, URTI - Cont supportive care -Minimal cough now per caregiver at bedside. # TBI with spastic quadraplegia/Cerebral palsy/Scoliosis: Continue home baclofen 10mg PO BID and APAP as needed. IV access/ MIVF PIV Tubes/ Drains CARMELLA drain DVT prophylaxis Enoxaparin Wound care none Goals of care, communication with family Full code TRANSMISSION SPECIALIST, nutrition recommendations, diet regular Anticipated Disposition, PT/OT recommendations Home Team Pager ( Coverage 17/11) [phone] PCP Lorna Bal APRN Attestation IPI Certification I certify that I am a D-H credentialed attending provider with admitting privileges and that the patient meets or has met medical necessity to require an inpatient IPI level of care meeting a minimumof two midnights or is on the [facility] inpatient only procedure list (status C) due to possible abscess requiring IV antibiotics. Ian Duarte MD 07/03/2022 ROS: Patient is non verbal. Doesn't appear to be in pain Continues to get off&on low grade fever VITALS: Vitals Range last 24 hrs Temperature Temp: [37 ??C (98.6 ??F)-38 ??C (100.4 ??F)] Heart Rate Heart Rate: -- Blood Pressure BP: (103-149)/(70-92) Respiratory Rate Resp: [16] SpO2 SpO2: [95 %-97 %] Intake/Output Summary (Last 24 hours) at 07/03/2022 1438 Last data filed at 07/03/2022 0800 Gross per 24 hour Intake 50 ml Output 40 ml Net 10 ml No data found. Body mass index is 19.75 kg/m??. Estimated Creatinine Clearance: 267.5 mL/min (A) (based on SCr of 0.24 mg/dL (L)).. PHYSICAL EXAM: CONSTITUTIONAL: awake, alert, not in acute distress HEENT: PERRLA, EOMI, (-) JVD CHEST: RRR, (-) murmur LUNGS: Lungs clear to auscultation (-) wheeze, (-) crackles ABDOMEN: soft, NABS, (-) tenderness, (-) hepatomegaly, (-) splenomegaly EXTREMITIES: (-) edema, bilateral lower extremities with disuse atrophy. SKIN: moist, (-) rash Back: CARMELLA drain removal site. Clean. LABS: Recent Labs 07/03/22 1008 07/02/22 0615 07/01/22 0550 WBC 3.2* 3.3* 5.8 HGB 9.9* 9.6* 9.3* HCT 32.2* 30.7* 29.6* PLATELET 307 336 352 Recent Labs 07/02/22 0615 07/01/22 0550 06/30/22 0429 NA 134* 138 142 K 4.0 4.1 3.7 CL 100 103 105 CO2 24 24 25 BUN 5* 10 11 CREATININE 0.24* 0.25* 0.22* No results for input(s): AST, ALT, ALKPHOS, BILITOT, BILIDIR in the last 168 hours. Recent Labs 07/02/22 0615 07/01/22 0550 06/30/22 0429 CALCIUM 8.7 9.0 8.9 No results for input(s): PT, INR, PTT in the last 168 hours. No results for input(s): CK, TROPONINT in the last 168 hours. INPATIENT MEDICATIONS: Scheduled ??? senna-docusate 2 tablet Oral BID ??? miconazole Topical (Top) BID ??? sodium chloride 0.9 % (flush) 5 mL Intravenous BID ??? enoxaparin 30 mg Subcutaneous Nightly ??? baclofen 10 mg Oral BID ??? multivitamin with minerals 1 tablet Oral Daily Continuous infusions: PRN: polyethylene glycoL (MIRALAX) oral powder, benzonatate, bisacodyL, acetaminophen, sodium chloride 0.9 % (flush), lidocaine Studies reviewed in eDH. Remarkable for the following: FSBG Trend: No results for input(s): POCGLU in the last 72 hours. MICRO: No results for input(s): URINECULTURE in the last 720 hours. Recent Labs 06/25/22 1511 06/25/22 1512 GRAMSTAIN Many Neutrophils seen No microorganisms seen. Many Neutrophils seen No microorganisms seen. BFCX No growth No growth Recent Labs 06/25/22 0855 07/01/222020 BLOODCX No growth at 5 days. No growth at 5 days. No growth at 1 day. ECG: Recent Labs 07/01/22 1417 DIAGLINE Sinus tachycardia Nonspecific T wave abnormality Otherwise normal ECG When compared with ECG of 29-JUN-2022 08:55, No significant change was found Confirmed by Lyndon Lafleur ([id number]) on 07/02/2022 5:10:53 PM QTCCALC 443 VASCULAR: No results for input(s): VBTEXTRPT in the last 720 hours. IMAGING: Results for orders placed or performed during the hospital encounter of 06/24/22 CT Lumbar Spine w Contrast (Exam End: 06/24/2022 6:27 PM) Impression There are 2 irregular collections within the posterior subcutaneous fat of the lumbar region. The more superior collection appears to have deep extension to the level of the L1 and L2 lamina on the left side, but evaluation is marred by artifact. Findings are nonspecific, but infected collection is a possibility. Denser soft tissue collection centered about the dislocated right iliac screw was present on prior study but better visualized on current study. This may represent a chronic organized hematoma. Thank you for letting us participate in the care of this patient. If you are a health care provider and have any questions regarding this report, please contact the number below. For patients who have questions please contact the health critical care specialist that requested your imaging first. Electronically signed by: Jamaal Villafuerte, [facility] ([phone]), at 06/24/2022 6:56 PM XR Chest One View (Exam End: 07/02/2022 5:04 PM) Impression 1. No focal pneumonia. 2. Stable appearance of the posterior spinous fusion hardware and chest. Thank you for letting us participate in the care of this patient. If you are a health care provider and have any questions regarding this report, please contact the number below. For patients who have questions please contact the health critical care specialist that requested your imaging first. Electronically signed by: Enid Vargas MD, [facility] ([phone]), at 07/02/2022 11:26 PM * Nury Torres RN - 07/03/2022 4:04 AM EST OUTCOME EVALUATION NOTE: ?? OUTCOME SUMMARY: ?? Assumed care of patient. VSS on RA with the exception of tachycardia in low 100s. On tele NSR/ST, no events. TMAX 99.7F. Patient's caregiver, Fannie, at bedside overnight. Attentive to patient and performing ADLs. Pt endorsing pain in right hand/arm. Per Fannie, this is baseline pain. Pt scoring 4/10 on the Non-verbal non ICU pain scale at this time. Pt reassured with gentle touch and distraction. Fannie performed gentle ROM exercises with Tana which appeared to help. Patient no longer scoring on pain scale and appeared comfortable afterwards. Meds given per order. No acute issues. Will notify MD of changes. ?? PLAN MOVING FORWARD: ?? D/c planning. Monitor VS. Monitor labs. ?? INDIVIDUALIZED FALL PREVENTION INTERVENTIONS: ?? Patient-specific fall risk factors per assessment: [current deficits]: Immobility ?? Assistance [level of assistance required for transfers and ambulation]: 2A lift ?? Supervision [direct monitoring required during toileting and ADLs]: Hands on ?? Surveillance [continuous indirect monitoring]: Call fay within reach. Purposeful rounding. Room near nursing station. Bed alarm on. ?? Patient-specific fall prevention interventions for sensory deficits provided, if applicable: [X] No ? CARE PLAN GOAL OUTCOME EVALUATION: * Ian Duarte MD - 07/02/2022 1:21 PM EST Hospital Medicine Attending Daily Progress Note DATE OF ADMISSION: 06/24/2022 Hospital Day 8 days Active Hospital Problems Diagnosis ??? 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 Resolved Hospital Problems No resolved problems to display. INTERVAL HISTORY/ Subjective: Patient was very tired/sleepy entire day with poor PO intake. Spiked temp of 38.4 last night. 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 CT imaging showed 2 irregular fluid collections within the posterior subcutaneous fat at the lumbarregion with possible deep extension to the level of L1 and L2 lamina on the left side. Denser soft tissue collection around the dislocated right iliac screw likely chronic organized hematoma. She wasevaluated by spine surgery with recommendations for IR guided aspiration and drainage (done 06/25). Cultures from her drain has remained no growth to date. PLAN: # Possible spinal abscess/Back cellulitis: Concern for abscess formation due to discomfort and overlying redness over previous spinal surgery incision. - S/p IR aspiration with CARMELLA drain in place. Superior drain appeared like old blood, while inferior collection appeared purulent on drainage. CARMELLA drain removed by IR on 07/01/2022. - Cultures negative so far. - Sed rate > 119 yesterday to 89 today. - Discussed with ID # Fever: Site of CARMELLA site looks clean. -Back without any erythema -No cough or sob noted -No swelling in legs -Check UA # Episodic tachycardia: -Unclear etiology -Possibly related to poor PO intake - On LR 75 ml/hr since last night # Parainfluenza, URTI - Cont supportive care -Minimal cough now per caregiver at bedside. # TBI with spastic quadraplegia/Cerebral palsy/Scoliosis: Continue home baclofen 10mg PO BID and APAP as needed. IV access/ MIVF PIV Tubes/ Drains CARMELLA drain DVT prophylaxis Enoxaparin Wound care none Goals of care, communication with family Full code TRANSMISSION SPECIALIST, nutrition recommendations, diet regular Anticipated Disposition, PT/OT recommendations Home Team Pager ( Coverage 17/11) [phone] PCP Lorna Bal APRN Attestation IPI Certification I certify that I am a D-H credentialed attending provider with admitting privileges and that the patient meets or has met medical necessity to require an inpatient IPI level of care meeting a minimumof two midnights or is on the [facility] inpatient only procedure list (status C) due to possible abscess requiring IV antibiotics. Ian Duarte MD 07/02/2022 ROS: Patient is non verbal. Appears to be at her baseline today. Doesn't appear to be in pain. Appetite poor yesterday. VITALS: Vitals Range last 24 hrs Temperature Temp: [36.4 ??C (97.5 ??F)-38.4 ??C (101.1 ??F)] Heart Rate Heart Rate: -- Blood Pressure BP: (94-137)/(64-118) Respiratory Rate Resp: [16-20] SpO2 SpO2: [97 %-100 %] Intake/Output Summary (Last 24 hours) at 07/02/2022 1321 Last data filed at 07/02/2022 0850 Gross per 24 hour Intake 415 ml Output -- Net 415 ml No data found. Body mass index is 19.75 kg/m??. Estimated Creatinine Clearance: 267.5 mL/min (A) (based on SCr of 0.24 mg/dL (L)).. PHYSICAL EXAM: CONSTITUTIONAL: awake, alert, not in acute distress HEENT: PERRLA, EOMI, (-) JVD CHEST: RRR, (-) murmur LUNGS: Lungs clear to auscultation (-) wheeze, (-) crackles ABDOMEN: soft, NABS, (-) tenderness, (-) hepatomegaly, (-) splenomegaly EXTREMITIES: (-) edema, bilateral lower extremities with disuse atrophy. SKIN: moist, (-) rash Back: CARMELLA drain removal site. Clean. LABS: Recent Labs 07/02/22 0615 07/01/22 0550 06/30/22 0429 WBC 3.3* 5.8 6.4 HGB 9.6* 9.3* 9.4* HCT 30.7* 29.6* 30.4* PLATELET 336 352 349 Recent Labs 07/02/22 0615 07/01/22 0550 06/30/22 0429 NA 134* 138 142 K 4.0 4.1 3.7 CL 100 103 105 CO2 24 24 25 BUN 5* 10 11 CREATININE 0.24* 0.25* 0.22* No results for input(s): AST, ALT, ALKPHOS, BILITOT, BILIDIR in the last 168 hours. Recent Labs 07/02/22 0615 07/01/22 0550 06/30/22 0429 CALCIUM 8.7 9.0 8.9 No results for input(s): PT, INR, PTT in the last 168 hours. No results for input(s): CK, TROPONINT in the last 168 hours. INPATIENT MEDICATIONS: Scheduled ??? senna-docusate 2 tablet Oral BID ??? miconazole Topical (Top) BID ??? sodium chloride 0.9 % (flush) 5 mL Intravenous BID ??? enoxaparin 30 mg Subcutaneous Nightly ??? baclofen 10 mg Oral BID ??? multivitamin with minerals 1 tablet Oral Daily Continuous infusions: PRN: polyethylene glycoL (MIRALAX) oral powder, benzonatate, bisacodyL, acetaminophen, sodium chloride 0.9 % (flush), lidocaine Studies reviewed in eDH. Remarkable for the following: FSBG Trend: No results for input(s): POCGLU in the last 72 hours. MICRO: No results for input(s): URINECULTURE in the last 720 hours. Recent Labs 06/25/22 1511 06/25/22 1512 GRAMSTAIN Many Neutrophils seen No microorganisms seen. Many Neutrophils seen No microorganisms seen. BFCX No growth No growth Recent Labs 06/25/22 0855 BLOODCX No growth at 5 days. No growth at 5 days. ECG: Recent Labs 07/01/22 1417 DIAGLINE Sinus tachycardia Otherwise normal ECG When compared with ECG of 29-JUN-2022 08:55, Nonspecific T wave abnormality, improved in Lateral leads QTCCALC 443 VASCULAR: No results for input(s): VBTEXTRPT in the last 720 hours. IMAGING: Results for orders placed or performed during the hospital encounter of 06/24/22 CT Lumbar Spine w Contrast (Exam End: 06/24/2022 6:27 PM) Impression There are 2 irregular collections within the posterior subcutaneous fat of the lumbar region. The more superior collection appears to have deep extension to the level of the L1 and L2 lamina on the left side, but evaluation is marred by artifact. Findings are nonspecific, but infected collection is a possibility. Denser soft tissue collection centered about the dislocated right iliac screw was present on prior study but better visualized on current study. This may represent a chronic organized hematoma. Thank you for letting us participate in the care of this patient. If you are a health care provider and have any questions regarding this report, please contact the number below. For patients who have questions please contact the health critical care specialist that requested your imaging first. Electronically signed by: Jamaal Villafuerte [facility] ([phone]), at 06/24/2022 6:56 PM * Karrie Smallwood - 07/02/2022 12:21 PM EST Nutrition Services Note - Low Nutrition Acuity Tana Shelton is a 27 y.o. female Reason for intervention: hospital day 9 Nutrition Plan: Continue current diet. Encourage good PO intake. Multivitamin with minerals noted. Monitor weight. Patient screened for hospital length of stay. Deaf Teacher communicated with RN by secure chat and primary career guidance technician by phone. Per primary caregiver, patient has been eating pretty well throughout this admission, except for yesterday, but today seems to be doing well. Patient reported to have had a good breakfast today and a decent lunch. Primary caregiver describes the patient's food preferences to be picky, but they are able to find items on the menu that she will eat. Per caregiver, patient'slast weight was taken ~3 weeks ago, where patient weighed 108 lbs. Deaf Teacher recommends an updated weight on patient to allow for assessment of weight changes. Nutrition services to continue to monitor and follow up. Active Orders Diet Regular diet Frequency: Effective Now Number of Occurrences: Until Specified Admit Weight: 48.99 kg Estimated body mass index is 19.75 kg/m?? as calculated from the following: Height as of this encounter: 157.5 cm (5' 2). Weight as of this encounter: 49 kg (108 lb). Wt Readings from Last 5 Encounters: 06/24/22 49 kg (108 lb) 03/18/19 51.7 kg (114 lb) 05/27/18 54.4 kg (120 lb) 03/06/17 56.7 kg (125 lb) 12/30/16 52.2 kg (115 lb 1.3 oz) Weight loss: none - per weight graph, recommend updated weight. Appetite: Excellent (75%-100%) Food allergies:no known food allergies - per chart Chewing/Swallowing difficulty: none - per chart Nausea/Vomiting: no nausea and no vomiting - per flowsheets Last Bowel Movement: 06/29/22 Patient education / questions: not appropriate for education Nutrition services to follow weekly through hospital course unless consulted in the interim. ALEJANDRO Osei [phone] * Emeka Zavala MD - 07/02/2022 7:47 AM EST ORTHOPAEDIC SURGERY INPATIENT POST OP NOTE Patient Name: Tana Shelton Age: 27 y.o. Surgery/Issue: T12-L2 fluid collection Attending: Dr. Harrison Date of consult: 06/24 SUBJECTIVE / INTERVAL HISTORY: Tmax 38.4 yesterday night, resolved spontaneously. HR 105 this AM. No growth to date from either IR drain site, drains d/c'd yesterday. Seen by ID, recommending continuing to hold abx for now Cold symptoms, respiratory panel showing parainfluenza virus 3 Active Hospital Problems Diagnosis ??? 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 Resolved Hospital Problems No resolved problems to display. Active Non-Hospital Problems Diagnosis ??? Fracture of femur, distal ??? Contracture of elbow ??? Right leg pain ??? Presence of intrathecal baclofen pump ??? Spasticity ??? Scoliosis ??? Edema leg ??? Acquired dysplasia of hip, bilateral ??? 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 lactated ringers infusion ??? benzonatate (Tessalon) capsule 100 mg ??? senna-docusate (Pericolace) 8.6-50 mg per tablet 1 tablet ??? bisacodyL (Dulcolax) suppository 10 mg ??? miconazole (Micotin) 2 % powder ??? acetaminophen (Tylenol) tablet 500 mg ??? sodium chloride 0.9 % (flush) (BD PosiFlush Normal Saline 0.9) flush 5 mL ??? sodium chloride 0.9 % (flush) (BD PosiFlush Normal Saline 0.9) flush 5-20 mL ??? lidocaine (Xylocaine) 1% (10 mg/mL) injection 3 mg ??? enoxaparin (Lovenox) (30 mg/0.3 mL) subcutaneous injection 30 mg ??? baclofen (Lioresal) tablet 10 mg ??? multivitamin with minerals (Thera M) tablet 1 tablet ??? lactated Ringers 50 mL/hr (07/01/226) OBJECTIVE: Temp: [36.4 ??C (97.5 ??F)-38.4 ??C (101.1 ??F)] Resp: [16-20] BP: (94-137)/(64-118) Intake/Output Summary (Last 24 hours) at 07/02/2022 0747 Last data filed at 07/01/2022 2151 Gross per 24 hour Intake 410 ml Output -- Net 410 ml Body mass index is 19.75 kg/m??. Exam: General: NAD, awake/alert, responds to questions CV: RRR assessed peripherally Resp: Breathing comfortably on RA Focused Spine Exam: Well healed surgical incision. Mild erythema in upper lumbar region. no fluctuance. Appears to be nontender to palpation throughout spine ?? Significant contractures and stiffness of bilateral shoulders and elbows. Significant stiffness of bilateral hips and knees. Ankles hyper dorsiflexed. Legs with significant external rotation. Motor: Patient has spastic quadriplegia. No motor function of right upper and bilateral lower extremities. Lab Results Component Value Date NA 134 (L) 07/02/2022 K 4.0 07/02/2022 CL 100 07/02/2022 CO2 24 07/02/2022 BUN 5 (L) 07/02/2022 CREATININE 0.24 (L) 07/02/2022 GLUCOSE 91 07/02/2022 GLUCFASTING 95 07/01/2022 CALCIUM 8.7 07/02/2022 Lab Results Component Value Date WBC 3.3 (L) 07/02/2022 HGB 9.6 (L) 07/02/2022 HCT 30.7 (L) 07/02/2022 MCV 77.1 (L) 07/02/2022 PLATELET 336 07/02/2022 ASSESSMENT / PLAN: Tana Shelton is a 27 y.o. female with hx spinal fusion of thoracic spine to pelvis admitted for infectious workup of subcutaneous fluid collection T12-L2. Now s/p aspiration, drain placement w/ IR. Patient remains non-toxic appearing and hemodynamically stable. Aspirate with negative gram stain and no growth to date cultures. Defer to ID for antibiotic plan. No plans for surgical intervention from an ortho spine perspective and recommend continued medical management. Emeka Zavala MD 07/02/2022 * Nury Torres RN - 07/02/2022 6:02 AM EST OUTCOME EVALUATION NOTE: OUTCOME SUMMARY: Assumed care of patient. VSS on RA with the exception of tachycardia up to 120s. On tele ST, no events. Patient's mother, Javed, at bedside overnight. Attentive to patient and performing ADLs. Pt scoring 3/10 on the Non-verbal non ICU pain scale. Javed expressed concern about patient's hydration status due to poor PO intake that day, stating it seems like patient has a sore throat. MD notified. Tessalon PRN ordered. LR ordered for 50cc/hr. No acute issues overnight. Pt woke up and appeared to be feeling better. PLAN MOVING FORWARD: D/c planning. Monitor VS. Monitor labs. INDIVIDUALIZED FALL PREVENTION INTERVENTIONS: Patient-specific fall risk factors per assessment: [current deficits]: Immobility Assistance [level of assistance required for transfers and ambulation]: 2A lift Supervision [direct monitoring required during toileting and ADLs]: Hands on Surveillance [continuous indirect monitoring]: Call fay within reach. Purposeful rounding. Room near nursing station. Bed alarm on. Patient-specific fall prevention interventions for sensory deficits provided, if applicable: [X] No CARE PLAN GOAL OUTCOME EVALUATION: * Ian Duarte MD - 07/01/2022 1:50 PM EST [facility] Attending Daily Progress Note DATE OF ADMISSION: 06/24/2022 Hospital Day 7 days Active Hospital Problems Diagnosis ??? 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 Resolved Hospital Problems No resolved problems to display. INTERVAL HISTORY/ Subjective: Patient appears comfortable but tachycardic today again. Sed rate is up again. 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 CT imaging showed 2 irregular fluid collections within the posterior subcutaneous fat at the lumbarregion with possible deep extension to the level of L1 and L2 lamina on the left side. Denser soft tissue collection around the dislocated right iliac screw likely chronic organized hematoma. She wasevaluated by spine surgery with recommendations for IR guided aspiration and drainage (done 06/25). Cultures from her drain has remained no growth to date. PLAN: # Possible spinal abscess/Back cellulitis: Concern for abscess formation due to discomfort and overlying redness over previous spinal surgery incision. - S/p IR aspiration with CARMELLA drain in place. Superior drain appeared like old blood, while inferior collection appeared purulent on drainage. CARMELLA drain with about 5 cc of drainage per day. Discussed with IR. They would remove CARMELLA drain today as out put is minimal. - Cultures pending to guide therapy, but with no growth so far. - Sed rate > 119 today. - Appreciate ID input. - Baseline outpatient blood pressures and HRs low, 100s/60s and 90s bpm respectively. # Episodic tachycardia: -Unclear etiology -Doesn't appear to be in pain -Give Ns 500 ml fluid bolus and reevaluate. # Parainfluenza, URTI - Cont supportive care -Minimal cough now per caregiver at bedside. # TBI with spastic quadraplegia/Cerebral palsy/Scoliosis: Continue home baclofen 10mg PO BID and APAP as needed. IV access/ MIVF PIV Tubes/ Drains CARMELLA drain DVT prophylaxis Enoxaparin Wound care none Goals of care, communication with family Full code TRANSMISSION SPECIALIST, nutrition recommendations, diet regular Anticipated Disposition, PT/OT recommendations Home Team Pager ( Coverage 17/11) [phone] PCP Lorna Bal APRN Attestation IPI Certification I certify that I am a D-H credentialed attending provider with admitting privileges and that the patient meets or has met medical necessity to require an inpatient IPI level of care meeting a minimumof two midnights or is on the [facility] inpatient only procedure list (status C) due to possible abscess requiring IV antibiotics. Ian Duarte MD 07/01/2022 ROS: Patient is non verbal. Patients caregiver states she is doing good today . Doesn't appear to be in pain. Eating well. No fever, anorexia (+) cough VITALS: Vitals Range last 24 hrs Temperature Temp: [36.4 ??C (97.5 ??F)-37.5 ??C (99.5 ??F)] Heart Rate Heart Rate: -- Blood Pressure BP: (99-116)/(69-79) Respiratory Rate Resp: [16-18] SpO2 SpO2: [95 %-99 %] Intake/Output Summary (Last 24 hours) at 07/01/2022 1355 Last data filed at 07/01/2022 1334 Gross per 24 hour Intake 700 ml Output 5 ml Net 695 ml No data found. Body mass index is 19.75 kg/m??. Estimated Creatinine Clearance: 256.8 mL/min (A) (based on SCr of 0.25 mg/dL (L)).. PHYSICAL EXAM: CONSTITUTIONAL: awake, alert, not in acute distress HEENT: PERRLA, EOMI, (-) JVD CHEST: RRR, (-) murmur LUNGS: Lungs clear to auscultation (-) wheeze, (-) crackles ABDOMEN: soft, NABS, (-) tenderness, (-) hepatomegaly, (-) splenomegaly EXTREMITIES: (-) edema, bilateral lower extremities with disuse atrophy. SKIN: moist, (-) rash Back: CARMELLA drain in place.minimal pinkish drainage noted. LABS: Recent Labs 07/01/22 0550 06/30/2242806/29/22557 WBC 5.8 6.4 5.6 HGB 9.3* 9.4* 9.8* HCT 29.6* 30.4* 31.7* PLATELET 352 349 345 Recent Labs 07/01/22 0550 06/30/2242806/29/22557 NA 138 142 134* K 4.1 3.7 4.1 CL 103 105 102 CO2 24 25 21* BUN 10 11 11 CREATININE 0.25* 0.22* 0.25* No results for input(s): AST, ALT, ALKPHOS, BILITOT, BILIDIR in the last 168 hours. Recent Labs 07/01/22 0550 06/30/22 0429 06/29/22 0558 CALCIUM 9.0 8.9 9.0 No results for input(s): PT, INR, PTT in the last 168 hours. No results for input(s): CK, TROPONINT in the last 168 hours. INPATIENT MEDICATIONS: Scheduled ??? senna-docusate 1 tablet Oral BID ??? miconazole Topical (Top) BID ??? sodium chloride 0.9 % (flush) 5 mL Intravenous BID ??? enoxaparin 30 mg Subcutaneous Nightly ??? baclofen 10 mg Oral BID ??? multivitamin with minerals 1 tablet Oral Daily Continuous infusions: PRN: bisacodyL, acetaminophen, sodium chloride 0.9 % (flush), lidocaine Studies reviewed in eDH. Remarkable for the following: FSBG Trend: No results for input(s): POCGLU in the last 72 hours. MICRO: No results for input(s): URINECULTURE in the last 720 hours. Recent Labs 06/25/22 1511 06/25/22 1512 GRAMSTAIN Many Neutrophils seen No microorganisms seen. Many Neutrophils seen No microorganisms seen. BFCX No growth No growth Recent Labs 06/25/22 0855 BLOODCX No growth at 5 days. No growth at 5 days. ECG: Recent Labs 06/29/22 0855 DIAGLINE Sinus tachycardia Nonspecific T wave abnormality Abnormal ECG When compared with ECG of 26-JUN-2022 20:46, Minimal criteria for Inferior infarct are no longer Present Nonspecific T wave abnormality, worse in Lateral leads Confirmed by MD Shabazz Danette ([id number]) on 06/29/2022 9:49:48 PM QTCCALC 458 VASCULAR: No results for input(s): VBTEXTRPT in the last 720 hours. IMAGING: Results for orders placed or performed during the hospital encounter of 06/24/22 CT Lumbar Spine w Contrast (Exam End: 06/24/2022 6:27 PM) Impression There are 2 irregular collections within the posterior subcutaneous fat of the lumbar region. The more superior collection appears to have deep extension to the level of the L1 and L2 lamina on the left side, but evaluation is marred by artifact. Findings are nonspecific, but infected collection is a possibility. Denser soft tissue collection centered about the dislocated right iliac screw was present on prior study but better visualized on current study. This may represent a chronic organized hematoma. Thank you for letting us participate in the care of this patient. If you are a health care provider and have any questions regarding this report, please contact the number below. For patients who have questions please contact the health critical care specialist that requested your imaging first. Electronically signed by: Jamaal Villafuerte [facility] ([phone]), at 06/24/2022 6:56 PM * Tegan Snyder RN - 07/01/2022 11:44 AM EST ANGIO NURSING DATABASE Name: Tana Shelton Date of : 1995 AGE: 27 y.o. Address: [address] [place] [address] Phone: [phone] (home) Mobile: Telephone Information: Referring Provider: Lorna Bal REASON FOR VISIT: Order Questions Answers Is the patient on anticoagulant / antiplatelet therapy ? No Reason for exam and clinical history: Paraspinal drain into superifical collection placed 06/25 Clinical information / foster questions for radiologist: Scant output since placement, cultures negative Exam/Procedure requested: Please remove drain morning of 07/01 prior to discharge Is the patient ? No Does patient require sedation? None Is the patient taking any anticoagulants and/or antiplatelet meds? Yes Is patient awake, alert, and consentable? No Does patient need assist to stand? Yes Does Patient have any mobility limitations (e.g. spinal precautions) No Does patient require constant supervision? Yes Is patient over 450 lbs (200 kg) No Does patient have a pacemaker? No Does patient have a Chest Tube? No Is there a language / communication barrier? Yes Does patient have any additional special needs or accommodation required? caregiver at bedside 17/11; past TBI and nonverbal Planned procedure: drain check/exchange/removal Labs to be performed day of procedure: No labs Sedation: No Sedation Prophylactic antibiotic : None Contrast: Omnipaque Additional medications for procedure: Lidocaine Position: Supine Consent: Pending Medications to discontinue (and days held): None Case Urgency:: D- Intervention within 24 hrs Allergies Allergen Reactions ??? Fluoxetine Other (See Comments) HIVES, HEART RACES ??? Tegaderm [Transparent Dressings] Itching and Dermatitis Please use [id number] ??? Penicillins Pertinent PMH: Patient Active Problem List Diagnosis Code ??? 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 Acquired dysplasia of hip, bilateral M21.859 ??? Edema leg R60.0 ??? Scoliosis M41.9 ??? Spasticity R25.2 ??? Presence of intrathecal baclofen pump Z97.8 ??? Right leg pain M79.604 ??? Fracture of femur, distal S72.409A ??? 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 M46.20 Date/Procedure Meds Given/Comments 06/25/22 Low back drain placement Versed 2 mg IV ? Laboratory Results: Lab Results Component Value Date CREATININE 0.25 (L) 07/01/2022 Lab Results Component Value Date K 4.1 07/01/2022 Lab Results Component Value Date PLATELET 352 07/01/2022 * Hank Nunez PA - 06/30/2022 4:43 PM EST Interventional Radiology - Progress Note Patient Name: Tana Shelton : 1995 MR#: [id number] Received contact from primary team regarding drain in soft tissue of back, placed 06/25 by IR. Discharge tentatively planned for 07/01. Drain has had scant output since placement with negative culture results. Patient has completed all directed antibiotic therapy and remains afebrile. Recommend: removal of drain at bedside prior to discharge. * Sergey Keane MD - 06/30/2022 3:39 PM EST Images from the original note were not included. DEPARTMENT OF INFECTIOUS DISEASE & [facility] INFECTIOUS DISEASE PROGRESS NOTE Reason for follow up: Spinal collection, query abscess Major 24 Hour Events: No major events Subjective:Case discussed during rounds with ID team and the attending Dr arthur Amaya Patient is seen and examined at bedside. Patient overal feeling well, No fever, no chills, no nausea, no vomiting, no diarrhea, no rash. Tolerating ABX Review of systems: All negative except for what is stated above Antimicrobials: None at the moment Physical Exam: Temp: [36.5 ??C (97.7 ??F)] Heart Rate: -- Resp: [18] BP: (94-100)/(67-68) SpO2: [98 %-99 %] Heart Rate from SpO2: [83 bpm-86 bpm] GENERAL APPEARANCE: In no acute distress. VITAL SIGNS: Reviewed HEENT: Oropharynx is clear. Mouth no lesions. NECK: No lymphadenopathy or tenderness. LUNGS: Breath sounds are equal and clear bilaterally. No wheezes, rhonchi, or rales. HEART: Regular rate and rhythm with normal S1 and S2. No murmurs ABDOMEN: Soft. No mass, tenderness, guarding, or rebound. No organomegaly or hernia. Bowel sounds are present. EXTREMITIES: No cyanosis, clubbing, or edema. MSK: CARMELLA drain 5 cc serosanguinous fluid SKIN: No lesions, nodules or rashes are noted Labs: CBC: Recent Labs 06/30/2242806/29/2255706/28/22 0538 WBC 6.4 5.6 5.6 HGB 9.4* 9.8* 9.9* PLATELET 349 345 371* Chemistry: Recent Labs 06/30/2242806/29/2255706/28/22 0506/27/2255706/26/22 0538 NA 142 134* 137 138 141 K 3.7 4.1 4.0 3.9 4.2 CL 105 102 102 102 103 CO2 25 21* 25 25 26 BUN 11 11 11 12 12 CREATININE 0.22* 0.25* 0.27* 0.32* 0.28* GLUCOSE -- -- 95 97 97 Recent Labs 06/30/22 0429 06/29/22 0558 06/28/22 0538 CALCIUM 8.9 9.0 9.1 MAGNESIUM -- 0.88 0.78 LFT's: No results for input(s): BILITOT, BILIDIR, ALBUMIN, ALKPHOS, ALT, AST in the last 7068 hours. Microbiology: Fluid Specimen Comment: Superior spinal fluid collection 0 Result Notes Component 5 d ago Body Fluid Culture No growth : Hand, Right; Blood Pediatric Specimen Comment: #2 0 Result Notes Component 5 d ago Blood Culture No growth at 5 days. New Notable Imaging/Studies: Reviewed No new in the past 24 hours Diagnosis: Spinal collection, query abscess Summary: 27 year-old female with a PMH of TBI with spastic quadriplegia, CP, scoliosis, s/p PSF in 2008 and prior bilateral Girdlestone in 2010 was admitted to on 06/24 after her mother noticed she had increasing redness and tenderness over the midline surgical scar on the back seen in OSH concerns of cellulitis, she was on cephalexin--> cefepime + vancomycin --> cefpodoxime despite ABX symptoms pe rsited. CT performed on 06/24 showed two irregular collections within the posterior subcutaneous fatof the lumbar region. On 06/25 she underwent IR guided drainage with findings of old blood from the superior collection, while the more inferior collection drained purulent material, and a drain was placed. So far patient has been off antibiotics for almost a week, she is hemodynamically stable, afebrile, normal WBC count. Cultures with no growth to date which is not entirely surprising since she was on antibiotics when specimen was collected. Also there is a possibility for a sterile collection vs an indolent organism such as C.acnes? At this time in absence of identified pathogen or ongoing SIRS will planning to monitor off ABX, check CRP now and one week later, if CRP downtrend no further testing. If it raises up will repeat CT and drainage sample to increase culture yield. Patients mother in agreement Recommendations: -No ABX -Trend CRP in 1 week -Follow up with ID with results - Alarm signs were provided, come to the ED, call the office or 911 if initial symptoms return, fever, chills, associated with nausea, vomiting profuse diarrhea, confusion decrease urinary volumes. -Rest of management per primary team Thank you for allowing us to participate in the care of this patient. Infectious diseases team will: Continue to follow [] Sign off from this case. Please call us back for any further question [x] Sergey Doan MD Infectious Disease Fellow Pager [phone] 06/30/22 (Attending addendum to follow) Associated attestation - Jamaal Hills MD - 06/30/2022 7:22 PM EST I have seen and examined the patient and discussed the assessment and plan with the fellow. I reviewed the fellow's note and I agree with the documented findings and recommendations. I discussed our recommendations with Tana's mother on the phone: based on the absence of fever norleukocytosis despite holding antibiotics for 6 days, the lack of growth on cultures and the minimaldrainage from the IR placed drains suggest that Tana's paraspinal infection might have been adequately treated with pre-admission antibiotics and drainage; we therefore recommend no further antibiotic treatment. Since there is a small chance that Tana's hardware was infected, and considering her limited ability to verbally express herself, it would be reasonable to repeat a CRP in a week or so - if rising, we recommend repeating a CT to rule in/out repeat fluid accumulation, which should prompt repeat aspi ration and culture. Jamaal Hills MD ID Staff Physician I spent a total of 50 minutes reviewing data, examining Tana and speaking with her mother and other providers. * Ian Duarte MD - 06/30/2022 1:34 PM EST Hospital Medicine Attending Daily Progress Note DATE OF ADMISSION: 06/24/2022 Hospital Day 6 days Active Hospital Problems Diagnosis ??? 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 Resolved Hospital Problems No resolved problems to display. INTERVAL HISTORY/ Subjective: Tachycardia better now. She had a BM after suppository yesterday ASSESSMENT: 27-year-old female, PMH of TBI with spastic quadriplegia, CP, s/p intrathecal baclofen pump and removal complicated by site infection, bacteremia, nonverbal, scoliosis, s/p PSF(02/2009), prior bilateral Girdlestone's-2010 who has had increasing redness and tenderness over the midline surgical scar on the back x 3 weeks treated as cellulitis as an outpatient with Keflex, followed by an inpatient admission for 3 days where a fluid collection was seen (not drained) and subsequently referred to for further management ?? CT imaging showed 2 irregular fluid collections within the posterior subcutaneous fat at the lumbarregion with possible deep extension to the level of L1 and L2 lamina on the left side. Denser soft tissue collection around the dislocated right iliac screw likely chronic organized hematoma. She wasevaluated by spine surgery with recommendations for IR guided aspiration and drainage (done 06/25). Cultures from her drain has remained no growth to date. PLAN: # Possible spinal abscess/Back cellulitis: Concern for abscess formation due to discomfort and overlying redness over previous spinal surgery incision. - S/p IR aspiration with CARMELLA drain in place. Superior drain appeared like old blood, while inferior collection appeared purulent on drainage. CARMELLA drain with about 5 cc of drainage per day. Will discusswith IR about CARMELLA drain removal timing. - Cultures pending to guide therapy, but with no growth so far. - Repeat ESR/CRP remain elevated - Appreciate ID input. - Baseline outpatient blood pressures and HRs low, 100s/60s and 90s bpm respectively. # Parainfluenza, URTI - Cont supportive care -Minimal cough now per caregiver at bedside. # TBI with spastic quadraplegia/Cerebral palsy/Scoliosis: Continue home baclofen 10mg PO BID and APAP as needed. IV access/ MIVF PIV Tubes/ Drains none DVT prophylaxis Enoxaparin Wound care none Goals of care, communication with family Full code TRANSMISSION SPECIALIST, nutrition recommendations, diet regular Anticipated Disposition, PT/OT recommendations Home Team Pager ( Coverage 17/11) [phone] PCP Lorna Bal APRN Attestation IPI Certification I certify that I am a D-H credentialed attending provider with admitting privileges and that the patient meets or has met medical necessity to require an inpatient IPI level of care meeting a minimumof two midnights or is on the [facility] inpatient only procedure list (status C) due to possible abscess requiring IV antibiotics. Ian Duarte MD 06/30/2022 ROS: Patient is non verbal. Per patients caregiver at bedside, patient doesn't appear to be in pain. Eating well. No fever, anorexia (+) cough VITALS: Vitals Range last 24 hrs Temperature Temp: [36.5 ??C (97.7 ??F)-36.6 ??C (97.9 ??F)] Heart Rate Heart Rate: -- Blood Pressure BP: (94-130)/(67-76) Respiratory Rate Resp: [18] SpO2 SpO2: [93 %-99 %] Intake/Output Summary (Last 24 hours) at 06/30/2022 1334 Last data filed at 06/30/2022 0800 Gross per 24 hour Intake 200 ml Output 5 ml Net 195 ml Patient Vitals for the past 168 hrs: Weight 06/24/22 1317 49 kg (108 lb) Body mass index is 19.75 kg/m??. Estimated Creatinine Clearance: 291.9 mL/min (A) (based on SCr of 0.22 mg/dL (L)).. PHYSICAL EXAM: CONSTITUTIONAL: awake, alert, not in acute distress HEENT: PERRLA, EOMI, (-) JVD CHEST: RRR, (-) murmur LUNGS: Lungs clear to auscultation (-) wheeze, (-) crackles ABDOMEN: soft, NABS, (-) tenderness, (-) hepatomegaly, (-) splenomegaly EXTREMITIES: (-) edema, bilateral lower extremities with disuse atrophy. SKIN: moist, (-) rash Back: CARMELLA drain in place.minimal pinkish drainage noted. LABS: Recent Labs 06/30/22 0429 06/29/22 0558 06/28/22 0538 WBC 6.4 5.6 5.6 HGB 9.4* 9.8* 9.9* HCT 30.4* 31.7* 31.6* PLATELET 349 345 371* Recent Labs 06/30/22 0429 06/29/22 0558 06/28/22 0538 NA 142 134* 137 K 3.7 4.1 4.0 CL 105 102 102 CO2 25 21* 25 BUN 11 11 11 CREATININE 0.22* 0.25* 0.27* No results for input(s): AST, ALT, ALKPHOS, BILITOT, BILIDIR in the last 168 hours. Recent Labs 06/30/22 04206/29/22 0558 06/28/22 0538 CALCIUM 8.9 9.0 9.1 No results for input(s): PT, INR, PTT in the last 168 hours. No results for input(s): CK, TROPONINT in the last 168 hours. INPATIENT MEDICATIONS: Scheduled ??? senna-docusate 1 tablet Oral BID ??? miconazole Topical (Top) BID ??? sodium chloride 0.9 % (flush) 5 mL Intravenous BID ??? enoxaparin 30 mg Subcutaneous Nightly ??? baclofen 10 mg Oral BID ??? multivitamin with minerals 1 tablet Oral Daily Continuous infusions: PRN: bisacodyL, acetaminophen, sodium chloride 0.9 % (flush), lidocaine Studies reviewed in eDH. Remarkable for the following: FSBG Trend: No results for input(s): POCGLU in the last 72 hours. MICRO: No results for input(s): URINECULTURE in the last 720 hours. Recent Labs 06/25/22 1511 06/25/22 1512 GRAMSTAIN Many Neutrophils seen No microorganisms seen. Many Neutrophils seen No microorganisms seen. BFCX No growth No growth Recent Labs 06/25/22 0855 BLOODCX No growth at 4 days. No growth at 4 days. ECG: Recent Labs 06/29/22 0855 DIAGLINE Sinus tachycardia Nonspecific T wave abnormality Abnormal ECG When compared with ECG of 26-JUN-2022 20:46, Minimal criteria for Inferior infarct are no longer Present Nonspecific T wave abnormality, worse in Lateral leads Confirmed by MD Shabazz Danette ([id number]) on 06/29/2022 9:49:48 PM QTCCALC 458 VASCULAR: No results for input(s): VBTEXTRPT in the last 720 hours. IMAGING: Results for orders placed or performed during the hospital encounter of 06/24/22 CT Lumbar Spine w Contrast (Exam End: 06/24/2022 6:27 PM) Impression There are 2 irregular collections within the posterior subcutaneous fat of the lumbar region. The more superior collection appears to have deep extension to the level of the L1 and L2 lamina on the left side, but evaluation is marred by artifact. Findings are nonspecific, but infected collection is a possibility. Denser soft tissue collection centered about the dislocated right iliac screw was present on prior study but better visualized on current study. This may represent a chronic organized hematoma. Thank you for letting us participate in the care of this patient. If you are a health care provider and have any questions regarding this report, please contact the number below. For patients who have questions please contact the health critical care specialist that requested your imaging first. Electronically signed by: Jamaal Villafuerte [facility] ([phone]), at 06/24/2022 6:56 PM * Estevan Alfaro MD - 06/29/2022 7:21 AM EST Hospital Medicine Attending Daily Progress Note DATE OF ADMISSION: 06/24/2022 Hospital Day 5 days Active Hospital Problems Diagnosis ??? 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 Resolved Hospital Problems No resolved problems to display. INTERVAL HISTORY/ Subjective: Ongoing sinus tachycardia. Check Mg and TSH today. Monitor off IV antibiotics. Spinal fluid cultureNGTD. 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 CT imaging showed 2 irregular fluid collections within the posterior subcutaneous fat at the lumbarregion with possible deep extension to the level of L1 and L2 lamina on the left side. Denser soft tissue collection around the dislocated right iliac screw likely chronic organized hematoma. She wasevaluated by spine surgery with recommendations for IR guided aspiration and drainage (done 06/25). Cultures from her drain has remained no growth to date. PLAN: # Possible spinal abscess/Back cellulitis: Concern for abscess formation due to discomfort and overlying redness over previous spinal surgery incision. - S/p IR aspiration with CARMELLA drain in place. Superior drain appeared like old blood, while inferior collection appeared purulent on drainage. - Cultures pending to guide therapy, but with no growth so far. - Repeat ESR/CRP remain elevated - ID consult; monitor off antibiotics - Baseline outpatient blood pressures and HRs low, 100s/60s and 90s bpm respectively. # Parainfluenza, URTI - Cont supportive care # TBI with spastic quadraplegia/Cerebral palsy/Scoliosis: Continue home baclofen 10mg PO BID and APAP as needed. IV access/ MIVF PIV Tubes/ Drains none DVT prophylaxis Enoxaparin Wound care none Goals of care, communication with family Full code TRANSMISSION SPECIALIST, nutrition recommendations, diet regular Anticipated Disposition, PT/OT recommendations Home Team Pager ( Coverage 17/11) [phone] PCP Lorna Bal APRN Attestation IPI Certification I certify that I am a D-H credentialed attending provider with admitting privileges and that the patient meets or has met medical necessity to require an inpatient IPI level of care meeting a minimumof two midnights or is on the [facility] inpatient only procedure list (status C) due to: monitoring of fluid status given an inability to regulate fluid balance and the need for administration or restriction of fluids Estevan Alfaro MD 06/29/2022 ROS: No fever, anorexia (+) cough, (+) nasal congestion No chest pain, palpitation No abdominal pain, N/V No hematuria, dysuria VITALS: Vitals Range last 24 hrs Temperature Temp: [36.5 ??C (97.7 ??F)-37 ??C (98.6 ??F)] Heart Rate Heart Rate: -- Blood Pressure BP: (93-116)/(55-81) Respiratory Rate Resp: [16-18] SpO2 SpO2: [97 %-99 %] Intake/Output Summary (Last 24 hours) at 06/29/2022 0721 Last data filed at 06/28/2022 1636 Gross per 24 hour Intake 10 ml Output 5 ml Net 5 ml Patient Vitals for the past 168 hrs: Weight 06/24/22 1317 49 kg (108 lb) Body mass index is 19.75 kg/m??. Estimated Creatinine Clearance: 256.8 mL/min (A) (based on SCr of 0.25 mg/dL (L)).. PHYSICAL EXAM: CONSTITUTIONAL: awake, alert, not in acute distress HEENT: PERRLA, EOMI, (-) JVD (-) thyromegaly CHEST: RRR, (-) murmur LUNGS: SCE, resonant to percussion, (-) wheeze, (-) crackles ABDOMEN: soft, NABS, (-) tenderness, (-) hepatomegaly, (-) splenomegaly EXTREMITIES: (-) edema, pulses full and equal SKIN: moist, (-) rash LABS: Recent Labs 06/29/2255706/28/22 0538 06/27/22 05 WBC 5.6 5.6 5.5 HGB 9.8* 9.9* 9.2* HCT 31.7* 31.6* 30.0* PLATELET 345 371* 389* Recent Labs 06/29/22 0558 06/28/22 0538 06/27/22 0558 NA 134* 137 138 K 4.1 4.0 3.9 CL 102 102 102 CO2 21* 25 25 BUN 11 11 12 CREATININE 0.25* 0.27* 0.32* No results for input(s): AST, ALT, ALKPHOS, BILITOT, BILIDIR in the last 168 hours. Recent Labs 06/29/22 0558 06/28/22 0538 06/27/22 05 CALCIUM 9.0 9.1 9.2 No results for input(s): PT, INR, PTT in the last 168 hours. No results for input(s): CK, TROPONINT in the last 168 hours. INPATIENT MEDICATIONS: Scheduled ??? miconazole Topical (Top) BID ??? sodium chloride 0.9 % (flush) 5 mL Intravenous BID ??? enoxaparin 30 mg Subcutaneous Nightly ??? baclofen 10 mg Oral BID ??? senna 17.2 mg Oral Nightly ??? multivitamin with minerals 1 tablet Oral Daily Continuous infusions: PRN: acetaminophen, sodium chloride 0.9 % (flush), lidocaine Studies reviewed in eDH. Remarkable for the following: FSBG Trend: No results for input(s): POCGLU in the last 72 hours. MICRO: No results for input(s): URINECULTURE in the last 720 hours. Recent Labs 06/25/22 1511 06/25/22 1512 GRAMSTAIN Many Neutrophils seen No microorganisms seen. Many Neutrophils seen No microorganisms seen. BFCX No growth to date. No growth to date. Recent Labs 06/25/22 0855 BLOODCX No growth at 3 days. No growth at 3 days. ECG: Recent Labs 06/26/22 2046 DIAGLINE Sinus tachycardia Abnormal ECG Confirmed by Altagracia Palomo ([id number]) on 06/27/2022 3:21:46 PM QTCCALC 448 VASCULAR: No results for input(s): VBTEXTRPT in the last 720 hours. IMAGING: Results for orders placed or performed during the hospital encounter of 06/24/22 CT Lumbar Spine w Contrast (Exam End: 06/24/2022 6:27 PM) Impression There are 2 irregular collections within the posterior subcutaneous fat of the lumbar region. The more superior collection appears to have deep extension to the level of the L1 and L2 lamina on the left side, but evaluation is marred by artifact. Findings are nonspecific, but infected collection is a possibility. Denser soft tissue collection centered about the dislocated right iliac screw was present on prior study but better visualized on current study. This may represent a chronic organized hematoma. Thank you for letting us participate in the care of this patient. If you are a health care provider and have any questions regarding this report, please contact the number below. For patients who have questions please contact the health critical care specialist that requested your imaging first. Electronically signed by: Jamaal [facility]afuerte [facility] ([phone]), at 06/24/2022 6:56 PM * Edvin Looney MD - 06/29/2022 5:41 AM EST ORTHOPAEDIC SURGERY INPATIENT POST OP NOTE Patient Name: Tana Shelton Age: 27 y.o. Surgery/Issue: T12-L2 fluid collection Attending: Dr. Harrison Date of consult: 06/24 SUBJECTIVE / INTERVAL HISTORY: Afebrile, VSS aside from mild tachycardia in the low 100s Morning labs pending No growth to date from either IR drain site Seen by ID, recommending continuing to hold abx for now Cold symptoms, respiratory panel showing parainfluenza virus 3 . FOCUSED REVIEW OF SYSTEMS: unable to perform due to mental status Active Hospital Problems Diagnosis ??? 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 Resolved Hospital Problems No resolved problems to display. Active Non-Hospital Problems Diagnosis ??? Fracture of femur, distal ??? Contracture of elbow ??? Right leg pain ??? Presence of intrathecal baclofen pump ??? Spasticity ??? Scoliosis ??? Edema leg ??? Acquired dysplasia of hip, bilateral ??? 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 miconazole (Micotin) 2 % powder ??? acetaminophen (Tylenol) tablet 500 mg ??? sodium chloride 0.9 % (flush) (BD PosiFlush Normal Saline 0.9) flush 5 mL ??? sodium chloride 0.9 % (flush) (BD PosiFlush Normal Saline 0.9) flush 5-20 mL ??? lidocaine (Xylocaine) 1% (10 mg/mL) injection 3 mg ??? enoxaparin (Lovenox) (30 mg/0.3 mL) subcutaneous injection 30 mg ??? baclofen (Lioresal) tablet 10 mg ??? senna (Senokot) tablet 17.2 mg ??? multivitamin with minerals (Thera M) tablet 1 tablet OBJECTIVE: Temp: [36.5 ??C (97.7 ??F)-37 ??C (98.6 ??F)] Resp: [16-18] BP: (93-116)/(55-81) Intake/Output Summary (Last 24 hours) at 06/29/2022 0541 Last data filed at 06/28/2022 1636 Gross per 24 hour Intake 10 ml Output 5 ml Net 5 ml Body mass index is 19.75 kg/m??. Exam: General: NAD, awake/alert, responds to questions CV: RRR assessed peripherally Resp: Breathing comfortably on RA Focused Spine Exam: Well healed surgical incision. Mild erythema in upper lumbar region. no fluctuance. Appears to be nontender to palpation throughout spine ?? Significant contractures and stiffness of bilateral shoulders and elbows. Significant stiffness of bilateral hips and knees. Ankles hyper dorsiflexed. Legs with significant external rotation. Motor: Patient has spastic quadriplegia. No motor function of right upper and bilateral lower extremities.Patient demonstrates purposeful gross movements of left hand and is able to grasp on command. Sensory: Appears to respond to light touch stimulus in all four extremities but does not provide reliable sensory exam. Lab Results Component Value Date NA 137 06/28/2022 K 4.0 06/28/2022 CL 102 06/28/2022 CO2 25 06/28/2022 BUN 11 06/28/2022 CREATININE 0.27 (L) 06/28/2022 GLUCOSE 95 06/28/2022 CALCIUM 9.1 06/28/2022 Lab Results Component Value Date WBC 5.6 06/28/2022 HGB 9.9 (L) 06/28/2022 HCT 31.6 (L) 06/28/2022 MCV 77.5 (L) 06/28/2022 PLATELET 371 (H) 06/28/2022 ASSESSMENT / PLAN: Tana Shelton is a 27 y.o. female with hx spinal fusion of thoracic spine to pelvis admitted for infectious workup of subcutaneous fluid collection T12-L2. Now s/p aspiration, drain placement w/ IR. Patient remains non-toxic appearing and hemodynamically stable. Aspirate with negative gram stain and no growth to date cultures. Defer to ID for antibiotic plan. No plans for surgical intervention from an ortho spine perspective and recommend continued medical management. Edvin Looney MD 06/29/2022 * Estevan Alfaro MD - 06/28/2022 8:07 AM EST Hospital Medicine Attending Daily Progress Note DATE OF ADMISSION: 06/24/2022 Hospital Day 4 days Active Hospital Problems Diagnosis ??? 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 Resolved Hospital Problems No resolved problems to display. INTERVAL HISTORY/ Subjective: Tachycardic overnight. Given IVF bolus. Mother at bedside; noted cough and nasal congestion. ESR and CRP still elevated. Cultures NGTD. Consult ID for concern for spinal abscess. 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 CT imaging showed 2 irregular fluid collections within the posterior subcutaneous fat at the lumbarregion with possible deep extension to the level of L1 and L2 lamina on the left side. Denser soft tissue collection around the dislocated right iliac screw likely chronic organized hematoma. She wasevaluated by spine surgery with recommendations for IR guided aspiration and drainage. Cultures from her drain has remained no growth to date. PLAN: # Possible spinal abscess/Back cellulitis: Concern for abscess formation due to discomfort and overlying redness over previous spinal surgery incision. - S/p IR aspiration with CARMELLA drain in place. Superior drain appeared like old blood, while inferior collection appeared purulent on drainage. - Cultures pending to guide therapy, but with no growth so far. - Repeat ESR/CRP remain elevated - Consult ID today; previous baclofen pump removed due to site infection with Pseudomonas and coagulase negative Staphylococcus. Treated with levofloxacin. - Baseline outpatient blood pressures and HRs low, 100s/60s and 90s bpm respectively. # Cough - Send respiratory virus panel today # TBI with spastic quadraplegia/Cerebral palsy/Scoliosis: Continue home baclofen 10mg PO BID and APAP as needed. IV access/ MIVF PIV Tubes/ Drains none DVT prophylaxis Enoxaparin Wound care none Goals of care, communication with family Full code TRANSMISSION SPECIALIST, nutrition recommendations, diet regular Anticipated Disposition, PT/OT recommendations Home Team Pager ( Coverage 17/11) [phone] PCP Lorna Bal APRN Attestation IPI Certification I certify that I am a D-H credentialed attending provider with admitting privileges and that the patient meets or has met medical necessity to require an inpatient IPI level of care meeting a minimumof two midnights or is on the [facility] inpatient only procedure list (status C) due to: monitoring of fluid status given an inability to regulate fluid balance and the need for administration or restriction of fluids Estevan Alfaro MD 06/28/2022 ROS: No fever, anorexia (+) cough, (+) nasal congestion No chest pain, palpitation No abdominal pain, N/V No hematuria, dysuria VITALS: Vitals Range last 24 hrs Temperature Temp: [36.4 ??C (97.5 ??F)-36.5 ??C (97.7 ??F)] Heart Rate Heart Rate: -- Blood Pressure BP: (92-122)/(59-72) Respiratory Rate Resp: [16-19] SpO2 SpO2: [96 %-97 %] Intake/Output Summary (Last 24 hours) at 06/28/2022 0807 Last data filed at 06/27/2022 1643 Gross per 24 hour Intake 10 ml Output 5 ml Net 5 ml Patient Vitals for the past 168 hrs: Weight 06/24/22 1317 49 kg (108 lb) Body mass index is 19.75 kg/m??. Estimated Creatinine Clearance: 237.8 mL/min (A) (based on SCr of 0.27 mg/dL (L)).. PHYSICAL EXAM: CONSTITUTIONAL: awake, alert, not in acute distress HEENT: PERRLA, EOMI, (-) JVD (-) thyromegaly CHEST: RRR, (-) murmur LUNGS: SCE, resonant to percussion, (-) wheeze, (-) crackles ABDOMEN: soft, NABS, (-) tenderness, (-) hepatomegaly, (-) splenomegaly EXTREMITIES: (-) edema, pulses full and equal SKIN: moist, (-) rash LABS: Recent Labs 06/28/22 0538 06/27/22 0558 06/26/22 0538 WBC 5.6 5.5 5.3 HGB 9.9* 9.2* 10.1* HCT 31.6* 30.0* 33.5* PLATELET 371* 389* 467* Recent Labs 06/28/2238 06/27/22 0558 06/26/22 0538 NA 137 138 141 K 4.0 3.9 4.2 CL 102 102 103 CO2 25 25 26 BUN 11 12 12 CREATININE 0.27* 0.32* 0.28* No results for input(s): AST, ALT, ALKPHOS, BILITOT, BILIDIR in the last 168 hours. Recent Labs 06/28/22 0506/27/22 0558 06/26/22 0538 CALCIUM 9.1 9.2 9.3 No results for input(s): PT, INR, PTT in the last 168 hours. No results for input(s): CK, TROPONINT in the last 168 hours. INPATIENT MEDICATIONS: Scheduled ??? miconazole Topical (Top) BID ??? sodium chloride 0.9 % (flush) 5 mL Intravenous BID ??? enoxaparin 30 mg Subcutaneous Nightly ??? baclofen 10 mg Oral BID ??? senna 17.2 mg Oral Nightly ??? multivitamin with minerals 1 tablet Oral Daily Continuous infusions: PRN: acetaminophen, sodium chloride 0.9 % (flush), lidocaine Studies reviewed in eDH. Remarkable for the following: FSBG Trend: No results for input(s): POCGLU in the last 72 hours. MICRO: No results for input(s): URINECULTURE in the last 720 hours. Recent Labs 06/25/22 1511 06/25/22 1512 GRAMSTAIN Many Neutrophils seen No microorganisms seen. Many Neutrophils seen No microorganisms seen. BFCX No growth to date. No growth to date. Recent Labs 06/25/22 0855 BLOODCX No growth at 2 days. No growth at 2 days. ECG: Recent Labs 06/26/22 2046 DIAGLINE Sinus tachycardia Abnormal ECG Confirmed by Altagracia Palomo ([email or web address]) on 06/27/2022 3:21:46 PM QTCCALC 448 VASCULAR: No results for input(s): VBTEXTRPT in the last 720 hours. IMAGING: Results for orders placed or performed during the hospital encounter of 06/24/22 CT Lumbar Spine w Contrast (Exam End: 06/24/2022 6:27 PM) Impression There are 2 irregular collections within the posterior subcutaneous fat of the lumbar region. The more superior collection appears to have deep extension to the level of the L1 and L2 lamina on the left side, but evaluation is marred by artifact. Findings are nonspecific, but infected collection is a possibility. Denser soft tissue collection centered about the dislocated right iliac screw was present on prior study but better visualized on current study. This may represent a chronic organized hematoma. Thank you for letting us participate in the care of this patient. If you are a health care provider and have any questions regarding this report, please contact the number below. For patients who have questions please contact the health critical care specialist that requested your imaging first. Electronically signed by: Jamaal [facility]af[facility] ([phone]), at 06/24/2022 6:56 PM * Anurag Call DO - 06/27/2022 6:20 PM EST HOSPITAL MEDICINE ATTENDING DAILY PROGRESS NOTE Patient Tana Shelton 1995 [id number] Physician Anurag Call DO Pager [phone] Encounter Date June 27, 2022 Admit Date 06/24/2022 Hospital Day 3 PCP Lorna Bal, GEODETIC ENGINEER [phone] ASSESSMENT/PLAN: Active Hospital Problems Diagnosis ??? 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 Resolved Hospital Problems No resolved problems to display. 1. Possible spinal abscess/Back cellulitis: Concern for abscess formation due to discomfort and overlying redness over previous spinal surgery incision. IR aspiration with CARMELLA drain in place. Superiordrain appeared like old blood, while inferior collection appeared purulent on drainage. Cultures pending to guide therapy, but with no growth so far. Remains hemodynamically stable without evidence of infection off antibiotics. Follow for now with low threshold to start if febrile or not her usual self. Discussed with orthopaedics and recommending rechecking ESR/CRP. May need to involve ID if cultures remain negative. Previous baclofen pump removed due to site infection with Pseudomonas and coagulase negative Staphylococcus. Treated with levofloxacin. Follow culture results for identificationand susceptibility to tailor therapy as needed. Baseline outpatient blood pressures and HRs low, 100s/60s and 90s bpm respectively. 2. TBI with spastic quadraplegia/Cerebral palsy/Scoliosis: Continue home baclofen 10mg PO BID and APAP as needed. 3. DVT Prophylaxis: LMWH CODE STATUS: Attempt Cardiopulmonary Resuscitation - Inpatient RESOLVED PROBLEMS: NONE Disposition: Home pending infectious work-up SUBJECTIVE: Less awake and interactive this morning than yesterday, but smiling and responding to voice still. Caregiver at bedside saying close to baseline. OBJECTIVE: Last value Range last 24 hrs Temp: 36.4 ??C (97.5 ??F) Temp: [36.1 ??C (97 ??F)-36.5 ??C (97.7 ??F)] Heart Rate: 91 Heart Rate from SpO2: (!) 102 bpm Heart Rate: -- BP: 109/72 BP: (92-109)/(56-72) Resp: 18 Resp: [18-20] SpO2: 97 % SpO2: [95 %-97 %] FiO2: / on None (Room air) Height: 157.5 cm (5' 2) Weight: 49 kg (108 lb) BMI (Calculated): 19.75 BMI Classification: Normal Weight Intake/Output Summary (Last 24 hours) at 06/27/2022 1828 Last data filed at 06/27/2022 1643 Gross per 24 hour Intake 110 ml Output 8 ml Net 102 ml GEN: awake, alert, NAD HEENT: PERRLA, EOMI, MMM, trachea midline, no JVD CHEST: CTA B/L, no W/R/R, no accessory muscle use HEART: RRR S1S2, no M/R/G, no LE edema ABD/PEL/BACK: soft, NT, ND, +BS; previous incision and inflammation appears similar to image in orthopaedic note, mild redness and warmth, CARMELLA drain in place with scant amount of bloody drainage (~5mL) EXT: no clubbing or cyanosis, no erythema LABS/IMAGING: Recent Labs 06/27/2258 06/26/22 0506/25/22 022 NA 138 141 140 K 3.9 4.2 4.1 CL 102 103 103 CO2 25 26 27 BUN 12 12 9 CREATININE 0.32* 0.28* 0.30* CALCIUM 9.2 9.3 9.4 Recent Labs 06/27/2255706/26/2253706/25/22219 WBC 5.5 5.3 7.2 HGB 9.2* 10.1* 9.8* HCT 30.0* 33.5* 30.7* MCV 77.9* 77.9* 75.6* PLATELET 389* 467* 437* No results for input(s): PT, INR, PTT in the last 72 hours. Back Fluid Culture: 1512: Inferior 1511: Superior Recent Labs 06/25/22 1512 06/25/22 1511 BFCX No growth to date. No growth to date. GRAMSTAIN Many Neutrophils seen No microorganisms seen. Many Neutrophils seen No microorganisms seen. Anaerobic culture: 1512: Inferior 1511: Superior Recent Labs 06/25/22 1512 06/25/22 1511 LABANAE No anaerobic organisms isolated to date No anaerobic organisms isolated to date Imaging: No results found for this visit on 06/24/22 (from the past 24 hour(s)). CONSULTANTS: IP ADMISSION REQUEST MEDICATIONS: SCHEDULED ??? miconazole Topical (Top) BID ??? sodium chloride 0.9 % (flush) 5 mL Intravenous BID ??? enoxaparin 30 mg Subcutaneous Nightly ??? baclofen 10 mg Oral BID ??? senna 17.2 mg Oral Nightly ??? multivitamin with minerals 1 tablet Oral Daily PRN acetaminophen, 500 mg, Q4H PRN sodium chloride 0.9 % (flush), 5-20 mL, Q1 Min PRN lidocaine, 0.3 mL, Once PRN DIET: Regular diet IPI Certification I certify that I am a D-H credentialed attending provider with admitting privileges and that the patient meets or has met medical necessity to require an inpatient IPI level of care meeting a minimumof two midnights or is on the [facility] inpatient only procedure list (status C) due to: Possible spinal abscess with involvement of previous placed hardware Anurag Call DO [phone] Hospitalist 06/27/2022 6:28 PM * Cristian, Lucho Gibson MD - 06/27/2022 4:32 PM EST ORTHOPAEDIC SURGERY INPATIENT POST OP NOTE Patient Name: Tana Shelton Age: 27 y.o. Surgery/Issue: T12-L2 fluid collection Attending: Dr. Harrison Date of consult: 06/24 SUBJECTIVE / INTERVAL HISTORY: Afebrile, HDS. Remains off abx. S/p fluid aspiration w/ IR 06/25; superior collection consistent with chronic hematoma, inferior collection w/ gross purulence s/p US-guided drain placement. Aspiration: negative gram stain and NGTD cxs. Blood cxs: NGTD. WBC 5.5 (5.3). FOCUSED REVIEW OF SYSTEMS: as above. Active Hospital Problems Diagnosis ??? 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 Resolved Hospital Problems No resolved problems to display. Active Non-Hospital Problems Diagnosis ??? Fracture of femur, distal ??? Contracture of elbow ??? Right leg pain ??? Presence of intrathecal baclofen pump ??? Spasticity ??? Scoliosis ??? Edema leg ??? Acquired dysplasia of hip, bilateral ??? 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 miconazole (Micotin) 2 % powder ??? acetaminophen (Tylenol) tablet 500 mg ??? sodium chloride 0.9 % (flush) (BD PosiFlush Normal Saline 0.9) flush 5 mL ??? sodium chloride 0.9 % (flush) (BD PosiFlush Normal Saline 0.9) flush 5-20 mL ??? lidocaine (Xylocaine) 1% (10 mg/mL) injection 3 mg ??? enoxaparin (Lovenox) (30 mg/0.3 mL) subcutaneous injection 30 mg ??? baclofen (Lioresal) tablet 10 mg ??? senna (Senokot) tablet 17.2 mg ??? multivitamin with minerals (Thera M) tablet 1 tablet OBJECTIVE: Temp: [36.1 ??C (97 ??F)-36.5 ??C (97.7 ??F)] Resp: [19-20] BP: (92-101)/(56-66) Intake/Output Summary (Last 24 hours) at 06/27/2022 1632 Last data filed at 06/27/2022 0929 Gross per 24 hour Intake 350 ml Output 13 ml Net 337 ml Body mass index is 19.75 kg/m??. Exam: General: NAD, awake/alert, responds to questions CV: RRR assessed peripherally Resp: Breathing comfortably on RA Focused Spine Exam: Well healed surgical incision. Mild erythema in upper lumbar region. no fluctuance. Appears to be nontender to palpation throughout spine ?? Significant contractures and stiffness of bilateral shoulders and elbows. Significant stiffness of bilateral hips and knees. Ankles hyper dorsiflexed. Legs with significant external rotation. Motor: Patient has spastic quadriplegia. No motor function of right upper and bilateral lower extremities.Patient demonstrates purposeful gross movements of left hand and is able to grasp on command. Sensory: Appears to respond to light touch stimulus in all four extremities but does not provide reliable sensory exam. Lab Results Component Value Date NA 138 06/27/2022 K 3.9 06/27/2022 CL 102 06/27/2022 CO2 25 06/27/2022 BUN 12 06/27/2022 CREATININE 0.32 (L) 06/27/2022 GLUCOSE 97 06/27/2022 CALCIUM 9.2 06/27/2022 Lab Results Component Value Date WBC 5.5 06/27/2022 HGB 9.2 (L) 06/27/2022 HCT 30.0 (L) 06/27/2022 MCV 77.9 (L) 06/27/2022 PLATELET 389 (H) 06/27/2022 ASSESSMENT / PLAN: Tana Shelton is a 27 y.o. female with hx spinal fusion of thoracic spine to pelvis admitted for infectious workup of subcutaneous fluid collection T12-L2. Now s/p aspiration, drain placement w/ IR. Patient remains non-toxic appearing and hemodynamically stable. Aspirate with negative gram stain and no growth to date cultures. WBC stable. Recommend trending inflammatory labs by obtaining updated ESR and CRP. If cultures become positive, recommend antibiotic therapy and consideration of ID consultation. No plans for surgical intervention from an ortho spine perspective and recommend continued medical management. Lucho Foster MD 06/27/2022 * Claudine Boone RN - 06/27/2022 3:59 AM EST OUTCOME EVALUATION NOTE: OUTCOME SUMMARY: Patient alert mostly non verbal , but does answer some yes/no questions intermittently and makes noises. Upon initial assessment patients HR in 120s. 2700# MD made aware. EKG and VBG completed and telemetry monitoring applied. Ordered for 500cc bolus, HR sustaining in 110s after. Another 500 cc bolus ordered and HR in 100-110s after. Started on LR 75cc/hr, and HR continued to decrease throughout night. Mother remained at bedside throughout. Afebrile, CARMELLA draining as charted. PLAN MOVING FORWARD: Monitor labs Monitor vitals CARMELLA drain Awaiting cultures INDIVIDUALIZED FALL PREVENTION INTERVENTIONS: Patient-specific fall risk factors per assessment: [current deficits]: WC bound, CP, CARMELLA drain, hospital environment, generalized wekaness Assistance [level of assistance required for transfers and ambulation]: 2x Lift OOB Supervision [direct monitoring required during toileting and ADLs]: Eyes on, hands on Surveillance [continuous indirect monitoring]: Bed alarm, masimo, purposeful rounding, telemetry, family at bedside, room near unit station * Zhanna Garrett - 06/26/2022 7:15 PM EST [employer] Machine Operator Encounter Note Patient Name: Tana Shelton : [id number] MR#: [id number] Admit Date: 06/24/2022 2:05 PM Hospital Day 2 days Narrative: Initiated visit with Pt on unit rounds. Pt and caregiver were awake and Ms. Sehlton's caregiver invited me in. Assessment: Ms. Shelton was smiling and held my hand as she invited me in. Tana and her caregiver, Fannie, appearto have a very sweet and loving garcia. Fannie relayed that she has been tending to Tana for 12 years, since she graduated high school. Tana smiled through the whole visit and was very responsive to touch and positive attention. Fannie stated that Tana's mom would be coming back from [place] until the hospital knows what next stepsare. Fannie stated that she was so glad she got Tana to [facility], as the smaller hospitals were dissmissing and ignoring her observations and need for medical assessment for Tana. Intervention and Outcome: Held Levar hand and laughed a bit with her, while getting a brief life review through Fannie on their time together. I affirmed the amount of love, care and trust I could see between them. Follow-up: None planned Time in Direct Care: 15 min Zhanna Garrett 06/26/2022 * Anurag Call DO - 06/26/2022 4:51 PM EST [facility] MEDICINE ATTENDING DAILY PROGRESS NOTE Patient Tana Shelton 1995 [id number] Physician Anurag Call DO Pager [phone] Encounter Date June 26, 2022 Admit Date 06/24/2022 Hospital Day 2 PCP Lorna Bal, GEODETIC ENGINEER [phone] ASSESSMENT/PLAN: Active Hospital Problems Diagnosis ??? 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 Resolved Hospital Problems No resolved problems to display. 1. Possible spinal abscess/Back cellulitis: Concern for abscess formation due to discomfort and overlying redness over previous spinal surgery incision. IR aspiration with CARMELLA drain in place. Superiordrain appeared like old blood, while inferior collection appeared purulent. Cultures pending to guide therapy. Remains hemodynamically stable without evidence of infection off antibiotics. Follow fornow with low threshold to start if febrile or not her usual self. Previous baclofen pump removed due to site infection with Pseudomonas and coagulase negative Staphylococcus. Treated with levofloxacin. Follow culture results for ID and susceptibility to tailor therapy as needed. 2. TBI with spastic quadraplegia/Cerebral palsy/Scoliosis: Continue home baclofen 10mg PO BID and APAP as needed. 3. DVT Prophylaxis: LMWH CODE STATUS: Attempt Cardiopulmonary Resuscitation - Inpatient RESOLVED PROBLEMS: NONE Disposition: Home pending infectious work-up SUBJECTIVE: More awake and interactive this morning. Smiling and responding to voice OBJECTIVE: Last value Range last 24 hrs Temp: 36.6 ??C (97.8 ??F) Temp: [36.4 ??C (97.5 ??F)-36.6 ??C (97.8 ??F)] Heart Rate: 91 Heart Rate from SpO2: 91 bpm Heart Rate: [91] BP: 108/76 BP: (97-109)/(57-76) Resp: 25 Resp: [20-25] SpO2: 100 % SpO2: [97 %-100 %] FiO2: / on None (Room air) Height: 157.5 cm (5' 2) Weight: 49 kg (108 lb) BMI (Calculated): 19.75 BMI Classification: Normal Weight Intake/Output Summary (Last 24 hours) at 06/26/2022 1651 Last data filed at 06/26/2022 1332 Gross per 24 hour Intake 830 ml Output 0 ml Net 830 ml GEN: awake, alert, NAD HEENT: PERRLA, EOMI, MMM, trachea midline, no JVD CHEST: CTA B/L, no W/R/R, no accessory muscle use HEART: RRR S1S2, no M/R/G, no LE edema ABD/PEL/BACK: soft, NT, ND, +BS; previous incision and inflammation appears similar to image in orthopaedic note, mild redness and warmth, CARMELLA drain in place with small amount of bloody drainage EXT: no clubbing or cyanosis, no erythema LABS/IMAGING: Recent Labs 06/26/22 0538 06/25/22 0220 06/24/22 1623 NA 141 140 143 K 4.2 4.1 3.9 CL 103 103 104 CO2 26 27 27 BUN 12 9 9 CREATININE 0.28* 0.30* 0.26* CALCIUM 9.3 9.4 10.0 Recent Labs 06/26/22 0538 06/25/22 0220 06/24/22 1623 WBC 5.3 7.2 6.8 HGB 10.1* 9.8* 10.5* HCT 33.5* 30.7* 33.6* MCV 77.9* 75.6* 76.4* PLATELET 467* 437* 516* No results for input(s): PT, INR, PTT in the last 72 hours. Back Fluid Culture: 1512: Inferior 1511: Superior Recent Labs 06/25/22 1512 06/25/22 1511 BFCX No growth to date. No growth to date. GRAMSTAIN Many Neutrophils seen No microorganisms seen. Many Neutrophils seen No microorganisms seen. Anaerobic culture: 1512: Inferior 1511: Superior Recent Labs 06/25/22 1512 06/25/22 1511 LABANAE No anaerobic organisms isolated to date No anaerobic organisms isolated to date Imaging: No results found for this visit on 06/24/22 (from the past 24 hour(s)). CONSULTANTS: IP ADMISSION REQUEST MEDICATIONS: SCHEDULED ??? miconazole Topical (Top) BID ??? sodium chloride 0.9 % (flush) 5 mL Intravenous BID ??? enoxaparin 30 mg Subcutaneous Nightly ??? baclofen 10 mg Oral BID ??? senna 17.2 mg Oral Nightly ??? multivitamin with minerals 1 tablet Oral Daily PRN acetaminophen, 500 mg, Q4H PRN sodium chloride 0.9 % (flush), 5-20 mL, Q1 Min PRN lidocaine, 0.3 mL, Once PRN DIET: Regular diet IPI Certification I certify that I am a D-H credentialed attending provider with admitting privileges and that the patient meets or has met medical necessity to require an inpatient IPI level of care meeting a minimumof two midnights or is on the [facility] inpatient only procedure list (status C) due to: Possible spinal abscess with involvement of previous placed hardware Anurag Call DO [id number] Hospitalist 06/26/2022 4:51 PM * Jimbo Willams RN - 06/26/2022 1:54 PM EST OUTCOME EVALUATION NOTE: OUTCOME SUMMARY: Patient remains alert and more interactive today than previous shifts, able to answer yes/no questions intermittently. VSS and does not appear to be in any pain. Caregiver remains at bedside. CARMELLA drain with small serosanguineous output, 10 cc total for shift. No acute changes, will continue to monitor. PLAN MOVING FORWARD: IV abx?, monitor VS & labs INDIVIDUALIZED FALL PREVENTION INTERVENTIONS: Patient-specific fall risk factors per assessment: [current deficits]: WC bound, CP, CARMELLA drain Assistance [level of assistance required for transfers and ambulation]: Lift OOB Supervision [direct monitoring required during toileting and ADLs]: Eyes on, hands on Surveillance [continuous indirect monitoring]: Bed alarm, masimo, purposeful rounding * Cristian, Lucho Gibson MD - 06/26/2022 6:11 AM EST ORTHOPAEDIC SURGERY INPATIENT POST OP NOTE Patient Name: Tana Shelton Age: 27 y.o. Surgery/Issue: T12-L2 fluid collection Attending: Dr. Harrison Date of consult: 06/24 SUBJECTIVE / INTERVAL HISTORY: Afebrile, HDS. S/p fluid aspiration w/ IR 06/25; superior collection consistent with chronic hematoma, inferior collection w/ gross purulence s/p US-guided drain placement. Aspiration: negative gram stain and NGTD cxs. Blood cxs: NGTD. WBC 5.3 (7.2). Remains off abx. FOCUSED REVIEW OF SYSTEMS: as above. Active Hospital Problems Diagnosis ??? 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 Resolved Hospital Problems No resolved problems to display. Active Non-Hospital Problems Diagnosis ??? Fracture of femur, distal ??? Contracture of elbow ??? Right leg pain ??? Presence of intrathecal baclofen pump ??? Spasticity ??? Scoliosis ??? Edema leg ??? Acquired dysplasia of hip, bilateral ??? 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 acetaminophen (Tylenol) tablet 500 mg ??? sodium chloride 0.9 % (flush) (BD PosiFlush Normal Saline 0.9) flush 5 mL ??? sodium chloride 0.9 % (flush) (BD PosiFlush Normal Saline 0.9) flush 5-20 mL ??? lidocaine (Xylocaine) 1% (10 mg/mL) injection 3 mg ??? enoxaparin (Lovenox) (30 mg/0.3 mL) subcutaneous injection 30 mg ??? baclofen (Lioresal) tablet 10 mg ??? senna (Senokot) tablet 17.2 mg ??? multivitamin with minerals (Thera M) tablet 1 tablet OBJECTIVE: Temp: [36 ??C (96.8 ??F)-36.6 ??C (97.9 ??F)] Heart Rate: [91] Resp: [13-24] BP: (90-112)/(56-79) Intake/Output Summary (Last 24 hours) at 06/26/2022 0642 Last data filed at 06/25/2022 1815 Gross per 24 hour Intake 350 ml Output 0 ml Net 350 ml Body mass index is 19.75 kg/m??. Exam: General: NAD, awake/alert, responds to questions CV: RRR assessed peripherally Resp: Breathing comfortably on RA Focused Spine Exam: Well healed surgical incision. Mild erythema in upper lumbar region. no fluctuance. Appears to be nontender to palpation throughout spine ?? Significant contractures and stiffness of bilateral shoulders and elbows. Significant stiffness of bilateral hips and knees. Ankles hyper dorsiflexed. Legs with significant external rotation. Motor: Patient has spastic quadriplegia. No motor function of right upper and bilateral lower extremities.Patient demonstrates purposeful gross movements of left hand and is able to grasp on command. Sensory: Appears to respond to light touch stimulus in all four extremities but does not provide reliable sensory exam. Lab Results Component Value Date NA 140 06/25/2022 K 4.1 06/25/2022 CL 103 06/25/2022 CO2 27 06/25/2022 BUN 9 06/25/2022 CREATININE 0.30 (L) 06/25/2022 GLUCOSE 97 06/25/2022 CALCIUM 9.4 06/25/2022 Lab Results Component Value Date WBC 5.3 06/26/2022 HGB 10.1 (L) 06/26/2022 HCT 33.5 (L) 06/26/2022 MCV 77.9 (L) 06/26/2022 PLATELET 467 (H) 06/26/2022 ASSESSMENT / PLAN: Tana Shelton is a 27 y.o. female with hx spinal fusion of thoracic spine to pelvis admitted for infectious workup of subcutaneous fluid collection T12-L2. Now s/p aspiration, drain placement w/ IR. Patient remains non-toxic appearing and hemodynamically stable. Aspirate with negative gram stain and no growth to date cultures. Given reported purulent appearance of fluid anticipate bacterial culture growth, which could guide antibiotic therapy if warranted. No plans for surgical intervention from an ortho spine perspective and recommend continued medical management. Lucho Foster MD 06/26/2022 * Jimbo Willams RN - 06/25/2022 5:52 PM EST OUTCOME EVALUATION NOTE: OUTCOME SUMMARY: Patient arrived from IR at 1700. Pt remains nonverbal, but does not appear to be in any pain. VSS. Nely, caregiver at bedside. CARMELLA drain with no output. Given PRN Tylenol for moaning with good effect. Incontinence care provided. No acute changes, will continue to monitor. PLAN MOVING FORWARD: Pain control, IV abx? INDIVIDUALIZED FALL PREVENTION INTERVENTIONS: Patient-specific fall risk factors per assessment: [current deficits]: IV sites, non verbal, WC bound Assistance [level of assistance required for transfers and ambulation]: 1A to turn in bed Supervision [direct monitoring required during toileting and ADLs]: Eyes on, hands on Surveillance [continuous indirect monitoring]: Bed alarm, masimo, caregiver @ bedside * Anurag Call DO - 06/25/2022 5:37 PM EST HOSPITAL MEDICINE ATTENDING DAILY PROGRESS NOTE Patient Tana Shelton 1995 [id number] Physician Anurag Call DO Pager [phone] Encounter Date June 25, 2022 Admit Date 06/24/2022 Hospital Day 1 PCP Lorna Bal, GEODETIC ENGINEER [phone] ASSESSMENT/PLAN: Active Hospital Problems Diagnosis ??? 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 Resolved Hospital Problems No resolved problems to display. 1. Possible spinal abscess/Back cellulitis: Concern for abscess formation due to discomfort and overlying redness over previous incision spinal surgery. Two fluid collections seen, but unsure if theyare communicating or reach to depth of lamina. Previous baclofen pump removed due to site infection. Previously grew Pseudomonas and coagulase negative Staphylococcus treated with levofloxacin. Non-toxic appearing, so holding off on antibiotics while awaiting culture data. Follow culture results for ID and susceptibility to tailor therapy as needed. Appreciate IR assistance with sampling today. Low threshold to start antibiotics if febrile. 2. TBI with spastic quadraplegia/Cerebral palsy/Scoliosis: Continue home baclofen 10mg PO BID and APAP as needed. 3. DVT Prophylaxis: LMWH CODE STATUS: Attempt Cardiopulmonary Resuscitation - Inpatient RESOLVED PROBLEMS: NONE Disposition: Home pending infectious work-up SUBJECTIVE: Non-verbal, smiling, making eye contact, and waving. Appears at baseline per caregiver Fannie at bedside. OBJECTIVE: Last value Range last 24 hrs Temp: 36.6 ??C (97.9 ??F) Temp: [36 ??C (96.8 ??F)-36.6 ??C (97.9 ??F)] Heart Rate: 78 Heart Rate from SpO2: 72 bpm Heart Rate: [78-96] BP: 98/71 BP: (90-112)/(56-79) Resp: 16 Resp: [12-18] SpO2: 99 % SpO2: [96 %-100 %] FiO2: / on None (Room air) Height: 157.5 cm (5' 2) Weight: 49 kg (108 lb) BMI (Calculated): 19.75 BMI Classification: Normal Weight No intake or output data in the 24 hours ending 06/25/22 5027 GEN: awake, alert, NAD HEENT: PERRLA, EOMI, MMM, trachea midline, no JVD CHEST: CTA B/L, no W/R/R, no accessory muscle use HEART: RRR S1S2, no M/R/G, no LE edema ABD/PEL/BACK: soft, NT, ND, +BS; previous incision and inflammation appears similar to image in orthopaedic note, mild redness and warmth EXT: no clubbing or cyanosis, no erythema LABS/IMAGING: Recent Labs 06/25/22 0220 06/24/22 1623 NA 140 143 K 4.1 3.9 CL 103 104 CO2 27 27 BUN 9 9 CREATININE 0.30* 0.26* CALCIUM 9.4 10.0 Recent Labs 06/25/22 0220 06/24/22 1623 WBC 7.2 6.8 HGB 9.8* 10.5* HCT 30.7* 33.6* MCV 75.6* 76.4* PLATELET 437* 516* No results for input(s): PT, INR, PTT in the last 72 hours. Imaging: Results for orders placed or performed during the hospital encounter of 06/24/22 (from the past 24 hour(s)) CT Lumbar Spine w Contrast (Exam End: 06/24/2022 6:27 PM) Impression There are 2 irregular collections within the posterior subcutaneous fat of the lumbar region. The more superior collection appears to have deep extension to the level of the L1 and L2 lamina on the left side, but evaluation is marred by artifact. Findings are nonspecific, but infected collection is a possibility. Denser soft tissue collection centered about the dislocated right iliac screw was present on prior study but better visualized on current study. This may represent a chronic organized hematoma. Thank you for letting us participate in the care of this patient. If you are a health care provider and have any questions regarding this report, please contact the number below. For patients who have questions please contact the health critical care specialist that requested your imaging first. Electronically signed by: Jamaal Villafuerte [facility] ([phone]), at 06/24/2022 6:56 PM CONSULTANTS: IP ADMISSION REQUEST MEDICATIONS: SCHEDULED ??? sodium chloride 0.9 % (flush) 5 mL Intravenous BID ??? enoxaparin 30 mg Subcutaneous Nightly ??? baclofen 10 mg Oral BID ??? senna 17.2 mg Oral Nightly ??? multivitamin with minerals 1 tablet Oral Daily PRN acetaminophen, 500 mg, Q4H PRN sodium chloride 0.9 % (flush), 5-20 mL, Q1 Min PRN lidocaine, 0.3 mL, Once PRN DIET: Regular diet IPI Certification I certify that I am a D-H credentialed attending provider with admitting privileges and that the patient meets or has met medical necessity to require an inpatient IPI level of care meeting a minimumof two midnights or is on the [facility] inpatient only procedure list (status C) due to: Possible spinal abscess with involvement of previous placed hardware Anurag Call DO [id number] Hospitalist 06/25/2022 5:37 PM * Gadiel Morris RN - 06/25/2022 4:19 PM EST ANGIO NURSING DATABASE Name: Tana Shelton Date of : 1995 AGE: 27 y.o. Address: [address] [place] [address] (home) Mobile: Telephone Information: Referring Provider: Lorna Bal REASON FOR VISIT: Lumbar aspiration Order Questions Answers Is the patient on anticoagulant / antiplatelet therapy ? No Reason for exam and clinical history: Prior history of spinal surgery now with 2 irregular collections within the posterior subcutaneous fat of the What labs need to be collected during imaging study? Cultures Is the patient ? No Planned procedure: Lumbar aspiration vs drainage Labs to be performed day of procedure: No labs Sedation: Moderate (Conscious sedation) Prophylactic antibiotic : None Contrast: No contrast Additional medications for procedure: Lidocaine Position: Supine Consent: Completed Medications to discontinue (and days held): None Case Urgency:: D- Intervention within 24 hrs Allergies Allergen Reactions ??? Fluoxetine Other (See Comments) HIVES, HEART RACES ??? Tegaderm [Transparent Dressings] Itching and Dermatitis Please use [id number] ??? Penicillins Pertinent PMH: Patient Active Problem List Diagnosis Code ??? 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 Acquired dysplasia of hip, bilateral M21.859 ??? Edema leg R60.0 ??? Scoliosis M41.9 ??? Spasticity R25.2 ??? Presence of intrathecal baclofen pump Z97.8 ??? Right leg pain M79.604 ??? Fracture of femur, distal S72.409A ??? 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 M46.20 Date/Procedure Meds Given/Comments 06/25/22 Low back drain placement Versed 2 mg IV 1608 to procedure room 1 via stretcher. Onto bed right side-lying. All monitors, O2, safety strap in place. Meds per protocol. Laboratory Results: Lab Results Component Value Date CREATININE 0.30 (L) 06/25/2022 Lab Results Component Value Date K 4.1 06/25/2022 Lab Results Component Value Date PLATELET 437 (H) 06/25/2022 documented in this encounter H&P Notes * Chrissie Lee PA - 07/04/2022 2:11 PM EST Images from the original note were not included. Interventional Radiology Focused Pre-procedure H&P: PCP: Lorna Bal APRN Referring Provider: Lorna Bal Planned procedure: Paraspinal drain placement Procedure indication: Paraspinal fluid collection, fever, leukocytosis IR workflow: Procedure request received through Interventional Radiology eDH order queue. Order Questions Answers Is the patient on anticoagulant / antiplatelet therapy ? Low Molecular Weight Heparin Reason for exam and clinical history: Persisent fever, fluid collection in lumbar region What labs need to be collected during imaging study? cell count, gram stain, culture and sensitivity Is the patient ? No Is the patient taking any anticoagulants and/or antiplatelet meds? Yes Is patient awake, alert, and consentable? No Does patient need assist to stand? Yes Does Patient have any mobility limitations (e.g. spinal precautions) No Does patient require constant supervision? Yes Is patient over 450 lbs (200 kg) No Does patient have a pacemaker? No Does patient have a Chest Tube? No Is there a language / communication barrier? Yes Does patient have any additional special needs or accommodation required? caregiver at bedside 17/11; past TBI and nonverbal History of Present Illness: Per chart review, Tana Shelton is a 27 y.o. female with PMH of CP withspastic quadriplegia and non-verbal currently admitted to the medical floor for spinal abscess s/p IR drain on 06/25 (fluid culture negative, removed 07/01) with persistent fever, leukocytosis and CT L-Spine 07/03 showing persistent loculated paraspinal collections at L3-4 and T12 who presents to Interventional Radiology to undergo paraspinal drain placement. Case discussed with IR doctor of the day, Dr. Martino. Remainder of patient's medical and surgical history, allergies, medications, and social/family history obtained below as previously outlined in patient's medical record. IR History: Date/Procedure ?Meds Given/Comments 06/25/22 Low back drain placement Versed 2 mg IV ? Imagin07/03/22 Assessment: 27 y.o. female with paraspinal fluid collection presenting to Interventional Radiology for paraspinal drain placement. Plan Planned procedure: Paraspinal drain placement Labs to be performed day of procedure: No labs Sedation: Moderate (Conscious sedation) Prophylactic antibiotic : None Contrast: No contrast Additional medications for procedure: Lidocaine Position: Supine Consent: Pending Medications to discontinue (and days held): None Cytopathology presence needed: No Case Urgency:: D- Intervention within 24 hrs Labs: Lab Results Component Value Date HGB 8.3 (L) 07/04/2022 HCT 26.0 (L) 07/04/2022 WBC 8.3 07/04/2022 PLATELET 244 07/04/2022 BUN 8 07/04/2022 CREATININE 0.34 (L) 07/04/2022 ALBUMIN 3.9 05/22/2014 BILIDIR 0.1 05/22/2014 BILITOT 0.2 05/22/2014 AST 13 05/22/2014 ALT 16 05/22/2014 ALKPHOS 65 05/22/2014 Allergies: Fluoxetine, Tegaderm [transparent dressings], and Penicillins Medications: No current facility-administered medications on file prior to encounter. Current Outpatient Medications on File Prior to Encounter Medication Sig Dispense Refill ??? senna (Senokot) 8.6 mg Tablet Take 2 tablets by mouth nightly. ??? cefPODOXime (Vantin) 200 mg Tablet Take 200 mg by mouth 2 times daily. ??? nystatin (MYCOSTATIN) 100,000 unit/gram Powder Apply 1 each topically 2 times daily. ??? baclofen (Lioresal) 10 mg Tablet Take 10 mg by mouth 2 times daily. ??? multivitamin (THERAGRAN) Tablet Take 1 tablet by mouth daily. ??? POLYETHYLENE GLYCOL 3350 (MIRALAX ORAL) Take 17 g by mouth as needed. Past Medical/Surgical history: Patient Active Problem List Diagnosis Code ??? 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 Acquired dysplasia of hip, bilateral M21.859 ??? Edema leg R60.0 ??? Scoliosis M41.9 ??? Spasticity R25.2 ??? Presence of intrathecal baclofen pump Z97.8 ??? Right leg pain M79.604 ??? Fracture of femur, distal S72.409A ??? 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 M46.20 No past medical history on file. Past Surgical History: Procedure Laterality Date ??? BACK SURGERY scoliosis repair ??? HIP OSTEOTOMY bilateral ??? IR ALL DRAINAGE PROCEDURES 06/25/2022 IR All Drainage Procedures 06/25/2022 Mich Martino MD [facility] INTERVENTIONL RAD ??? IR DRAIN CHECK/CHANGE/REMOVE 07/01/2022 IR Drain Check/Change/Remove 07/01/2022 Jamaal Jenkins, DO [facility] INTERVENTIONL RAD ??? PRO APPLY OF HIP CASTS, TWO LEGS 08/15/2010 CAST APPLICATION, HIP SPICA, BOTH LEGS performed by BARRERA OLIVER at [facility] MAIN OR ? ? PRO I&D, POST SPINE, LUMB/SACR/LUMBOSAC N/A 05/20/2014 @I & D, OPEN, DEEP ABSCESS, LUMBAR, SACRAL, LUMBOSACRAL performed by Freddy Isbell MD at [facility] OR ? ? PRO I&D, POST SPINE, LUMB/SACR/LUMBOSAC N/A 05/26/2014 @I & D, OPEN, DEEP ABSCESS, LUMBAR, SACRAL, LUMBOSACRAL performed by Freddy Isbell MD at [facility] OR ??? PRO IMPACT TOOTH REMOV COMP BONY N/A 06/14/2018 SURGICAL EXTRACTIONS, REMOVAL OF IMPACTED TOOTH, COMPLETELY BONY (WRVU 1.93) performed by Keith Cotton MD at [facility] OSC ??? PRO OSTEOTOMY FEMUR SHAFT/SUPRACONDY 08/15/2010 ??OSTEOTOMY, FEMUR SHAFT OR SUPRACONDYLAR W/O FIXATION performed by BARRERA OLIVER at [facility] MAIN OR ??? PRO RECONSTRUC HIP SOCKET, RESEC FEM HEAD 08/15/2010 ??ACETABULOPLASTY (GIRDLESTONE), RESECTION FEMORAL HEAD, BILATERAL performed by BARRERA OLIVER [facility] MAIN OR ??? PRO REMOVAL DEEP IMPLANT 08/15/2010 REMOVAL IMPLANT, DEEP, BRUNO performed by BARRERA OLIVER at [facility] MAIN OR ??? PRO REMOVAL ERUPTED TOOTH WITH ELEVATION OF MUCOPERIOSTEAL FLAP N/A 06/14/2018 SURGICAL EXTRACTIONS REQUIRING ELEVATION OF MUCOPERIOSTEAL FLAP AND REMOVAL OF BONE OR SECTION OF TOOTH (WRVU 1.09) performed by Keith Cotton MD at [facility] OSC ??? PRO REMOVE INFUSN DEVICE/PUMP N/A 05/11/2014 REMOVAL OF SPINE INFUSION PUMP performed by Jamaal Samuel MD at [facility] MAIN OR ??? PRO REMOVE SPINAL CANAL CATHETER N/A 05/11/2014 REMOVAL OF INTRATHECAL OR EPIDURAL CATHETER performed by Jamaal Samuel MD at [facility] OR ??? PRO REPR, DURAL/CSF LEAK, NOT REQ LAMINECTOMY N/A 05/20/2014 @REPAIR DURAL\CSF LEAK,NOT REQUIRING LAMINECTOMY performed by Freddy Isbell MD at [facility] OR Social History and Habits: Social [...] assessed in IR the day of procedure) 07/04/2022 Chrissie Delgadoally signed by Chrissie Lee PA at 07/04/2022 3:09 PM EST * Wolf, DEMI Torres - 07/01/2022 9:39 AM EST Interventional Radiology Focused Pre-procedure H&P: PCP: Lorna Bal APRN Referring Provider: Lorna Bal Planned procedure: Drain check/removal/exchange Procedure indication: Drain check given minimal-low output IR workflow: Procedure request received through Interventional Radiology eDH order queue. There are no answered order specific questions. History of Present Illness: Per chart review, Tana Shelton is a 27 y.o. female with PMH of TBI, cerebral palsy, scoliosis who developed two fluid collections: one in the posterior subcutaneous fat and a second, more dense collection centered about a dislocated iliac screw, who is s/p aspiration ofthe superior paraspinal collection and an 8FR into the more inferior collection. She now presents to Interventional Radiology to undergo drain check/exchange/remove in the setting of low output over the last few days (10mL over the last 48 hours). Remainder of patient's medical and surgical history, allergies, medications, and social/family history obtained below as previously outlined in patient's medical record. IR History: 06/25/22 Low back drain placement Versed 2 mg IV Imaging: Drain placement 06/25/22: Assessment: 27 y.o. female s/p presenting to Interventional Radiology for interval drain check/removal/exchange in the setting of recent drain placement into paraspinal fluid collection. Plan Planned procedure: Drain check/exchange/removal Labs to be performed day of procedure: No labs Sedation: Local only Prophylactic antibiotic: None Contrast: Omnipaque Additional medications for procedure: Lidocaine Position: Supine Consent: Pending Medications to discontinue (and days held): None Cytopathology presence needed: No Case Urgency:: D- Intervention within 24 hrs Labs: Lab Results Component Value Date HGB 9.3 (L) 07/01/2022 HCT 29.6 (L) 07/01/2022 WBC 5.8 07/01/2022 PLATELET 352 07/01/2022 BUN 10 07/01/2022 CREATININE 0.25 (L) 07/01/2022 ALBUMIN 3.9 05/22/2014 BILIDIR 0.1 05/22/2014 BILITOT 0.2 05/22/2014 AST 13 05/22/2014 ALT 16 05/22/2014 ALKPHOS 65 05/22/2014 Allergies: Fluoxetine, Tegaderm [transparent dressings], and Penicillins Medications: No current facility-administered medications on file prior to encounter. Current Outpatient Medications on File Prior to Encounter Medication Sig Dispense Refill ??? senna (Senokot) 8.6 mg Tablet Take 2 tablets by mouth nightly. ??? cefPODOXime (Vantin) 200 mg Tablet Take 200 mg by mouth 2 times daily. ??? nystatin (MYCOSTATIN) 100,000 unit/gram Powder Apply 1 each topically 2 times daily. ??? baclofen (Lioresal) 10 mg Tablet Take 10 mg by mouth 2 times daily. ??? multivitamin (THERAGRAN) Tablet Take 1 tablet by mouth daily. ??? POLYETHYLENE GLYCOL 3350 (MIRALAX ORAL) Take 17 g by mouth as needed. Past Medical/Surgical history: Patient Active Problem List Diagnosis Code ??? 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 Acquired dysplasia of hip, bilateral M21.859 ??? Edema leg R60.0 ??? Scoliosis M41.9 ??? Spasticity R25.2 ??? Presence of intrathecal baclofen pump Z97.8 ??? Right leg pain M79.604 ??? Fracture of femur, distal S72.409A ??? 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 M46.20 No past medical history on file. Past Surgical History: Procedure Laterality Date ??? BACK SURGERY scoliosis repair ??? HIP OSTEOTOMY bilateral ??? IR ALL DRAINAGE PROCEDURES 06/25/2022 IR All Drainage Procedures 06/25/2022 Mich Martino MD [facility] INTERVENTIONL RAD ??? PRO APPLY OF HIP CASTS, TWO LEGS 08/15/2010 CAST APPLICATION, HIP SPICA, BOTH LEGS performed by BARRERA OLIVER at [facility] MAIN OR ? ? PRO I&D, POST SPINE, LUMB/SACR/LUMBOSAC N/A 05/20/2014 @I & D, OPEN, DEEP ABSCESS, LUMBAR, SACRAL, LUMBOSACRAL performed by Freddy Isbell MD at [facility] MAIN OR ? ? PRO I&D, POST SPINE, LUMB/SACR/LUMBOSAC N/A 05/26/2014 @I & D, OPEN, DEEP ABSCESS, LUMBAR, SACRAL, LUMBOSACRAL performed by Freddy Isbell MD at [facility] OR ??? PRO IMPACT TOOTH REMOV COMP BONY N/A 06/14/2018 SURGICAL EXTRACTIONS, REMOVAL OF IMPACTED TOOTH, COMPLETELY BONY (WRVU 1.93) performed by Keith Cotton MD at [facility] OSC ??? PRO OSTEOTOMY FEMUR SHAFT/SUPRACONDY 08/15/2010 ??OSTEOTOMY, FEMUR SHAFT OR SUPRACONDYLAR W/O FIXATION performed by BARRERA OLIVER at [facility] OR ??? PRO RECONSTRUC HIP SOCKET, RESEC FEM HEAD 08/15/2010 ??ACETABULOPLASTY (GIRDLESTONE), RESECTION FEMORAL HEAD, BILATERAL performed by BARRERA OLIVER [facility] OR ??? PRO REMOVAL DEEP IMPLANT 08/15/2010 REMOVAL IMPLANT, DEEP, BRUNO performed by BARRERA OLIVER at [facility] OR ??? PRO REMOVAL ERUPTED TOOTH WITH ELEVATION OF MUCOPERIOSTEAL FLAP N/A 06/14/2018 SURGICAL EXTRACTIONS REQUIRING ELEVATION OF MUCOPERIOSTEAL FLAP AND REMOVAL OF BONE OR SECTION OF TOOTH (WRVU 1.09) performed by Keith Cotton MD at [facility] ??? PRO REMOVE INFUSN DEVICE/PUMP N/A 05/11/2014 REMOVAL OF SPINE INFUSION PUMP performed by Jamaal Samuel MD at [facility] OR ??? PRO REMOVE SPINAL CANAL CATHETER N/A 05/11/2014 REMOVAL OF INTRATHECAL OR EPIDURAL CATHETER performed by Jamaal Samuel MD at [facility] OR ??? PRO REPR, DURAL/CSF LEAK, NOT REQ LAMINECTOMY N/A 05/20/2014 @REPAIR DURAL\CSF LEAK,NOT REQUIRING LAMINECTOMY performed by Freddy Isbell MD at [facility] OR Social History and Habits: Social [...] assessed in IR the day of procedure) 07/01/2022 Anamika Todd PA-C * Barron Garcia MD - 06/25/2022 3:40 PM EST INTERVENTIONAL RADIOLOGY FOCUSED H&P: Procedure: Planned procedure: Lumbar aspiration vs drainage Update to H&P: The patient's history and physical exam have been reviewed and completed. There has been NO interval change from that of the pre-procedural note done within the last 30 days. There is NO change in the procedural plan. Physical Exam: Cardiovascular: Regular, Normal Pulmonary: Breath sounds clear to auscultation Meds: Current medications reviewed. No medications held. Labs: No new relevant labs. The planned procedure (and sedation plan if appropriate) , its benefits and risks, and alternativeswere discussed with the legal guardian. The legal guardian consented to the procedure. PRE-SEDATION ASSESSMENT: Sedation Plan: moderate (conscious sedation) ASA: 3: Patient with severe systemic disease Mallampati: III: only the base of the uvula can be seen Confirm NPO status: Yes History of anesthetic complications: No Current medications reviewed: Yes Allergies reviewed: Yes, Tegaderms. S. Gómez Ellison MD PGY-2 Pager #[phone] Department of Radiology [facility] 06/25/2022 Source Note - Hank Nunez PA - 06/25/2022 2:21 PM EST Images from the original note were not included. Interventional Radiology Focused Pre-procedure H&P: PCP: Lorna Bal APRN Procedure indication: Quadriplegia, tender erythematous lesion, collections on imaging IR workflow: Interventional Radiology Service contacted by Elenita Call at 1400 regarding the procedurerequest below. History of present illness: Per chart review, Tana Shelton is a 27 y.o. female who presents to Interventional Radiology to undergo sampling/drainage of lumbar subcutaneous collections in setting of fluid on imaging. This is a patient with TBI, cerebral palsy, scoliosis, presenting for evaluation of posterior midline surgical scar that has become progressively tender and erythematous over recent weeks. Imaging concerning for abscess. CT demonstrates 5x3x6 cm irregular collection in the left posterior subcutaneous fat and second, more dense collection centered about a dislocated iliac screw. Elevated CRP/ESR elevated. Afebrile, no leukocytosis. IR consulted for aspiration of fluid areas, indwelling drainage as indicated. Consent obtained from mother/guardian. Patient tolerates right lateral decubitus position best. Remainder of patient's medical and surgical history, allergies, medications, and social/family history obtained below as previously outlined in patient's medical record. IR history: none Imaging: Assessment: 27 y.o. female with fluid collection in lower lumbar area presenting to Interventional Radiology for sampling, possible drainage. Assessment for moderate sedation pending based on patient's ability to communicate. May proceed with single medication anxiolysis vs analgesia vs anesthesia as necessary. Plan Planned procedure: Lumbar aspiration vs drainage Labs to be performed day of procedure: No labs Sedation: Moderate (Conscious sedation) Prophylactic antibiotic : None Contrast: No contrast Additional medications for procedure: Lidocaine Position: Supine Consent: Completed Medications to discontinue (and days held): None Cytopathology presence needed: No Case Urgency:: D- Intervention within 24 hrs Plan or recommendation formulated in discussion with and directed by Interventional Radiology attending physician Clair. Labs: Lab Results Component Value Date HGB 9.8 (L) 06/25/2022 HCT 30.7 (L) 06/25/2022 WBC 7.2 06/25/2022 PLATELET 437 (H) 06/25/2022 BUN 9 06/25/2022 CREATININE 0.30 (L) 06/25/2022 ALBUMIN 3.9 05/22/2014 BILIDIR 0.1 05/22/2014 BILITOT 0.2 05/22/2014 AST 13 05/22/2014 ALT 16 05/22/2014 ALKPHOS 65 05/22/2014 Allergies: Fluoxetine, Tegaderm [transparent dressings], and Penicillins Medications: No current facility-administered medications on file prior to encounter. Current Outpatient Medications on File Prior to Encounter Medication Sig Dispense Refill ??? senna (Senokot) 8.6 mg Tablet Take 2 tablets by mouth nightly. ??? cefPODOXime (Vantin) 200 mg Tablet Take 200 mg by mouth 2 times daily. ??? nystatin (MYCOSTATIN) 100,000 unit/gram Powder Apply 1 each topically 2 times daily. ??? baclofen (Lioresal) 10 mg Tablet Take 10 mg by mouth 2 times daily. ??? multivitamin (THERAGRAN) Tablet Take 1 tablet by mouth daily. ??? POLYETHYLENE GLYCOL 3350 (MIRALAX ORAL) Take 17 g by mouth as needed. Past medical/surgical history: Patient Active Problem List Diagnosis Code ??? 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 Acquired dysplasia of hip, bilateral M21.859 ??? Edema leg R60.0 ??? Scoliosis M41.9 ??? Spasticity R25.2 ??? Presence of intrathecal baclofen pump Z97.8 ??? Right leg pain M79.604 ??? Fracture of femur, distal S72.409A ??? 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 M46.20 No past medical history on file. Past Surgical History: Procedure Laterality Date ??? BACK SURGERY scoliosis repair ??? HIP OSTEOTOMY bilateral ??? PRO APPLY OF HIP CASTS, TWO LEGS 08/15/2010 CAST APPLICATION, HIP SPICA, BOTH LEGS performed by BARRERA OLIVER at [facility] MAIN OR ? ? PRO I&D, POST SPINE, LUMB/SACR/LUMBOSAC N/A 05/20/2014 @I & D, OPEN, DEEP ABSCESS, LUMBAR, SACRAL, LUMBOSACRAL performed by Freddy Isbell MD at [facility] MAIN OR ? ? PRO I&D, POST SPINE, LUMB/SACR/LUMBOSAC N/A 05/26/2014 @I & D, OPEN, DEEP ABSCESS, LUMBAR, SACRAL, LUMBOSACRAL performed by Freddy Isbell MD at [facility] MAIN OR ??? PRO IMPACT TOOTH REMOV COMP BONY N/A 06/14/2018 SURGICAL EXTRACTIONS, REMOVAL OF IMPACTED TOOTH, COMPLETELY BONY (WRVU 1.93) performed by Keith Cotton MD at [facility] ??? PRO OSTEOTOMY FEMUR SHAFT/SUPRACONDY 08/15/2010 ??OSTEOTOMY, FEMUR SHAFT OR SUPRACONDYLAR W/O FIXATION performed by BARRERA OLIVER at [facility] MAIN OR ??? PRO RECONSTRUC HIP SOCKET, RESEC FEM HEAD 08/15/2010 ??ACETABULOPLASTY (GIRDLESTONE), RESECTION FEMORAL HEAD, BILATERAL performed by BARRERA OLIVER [facility] MAIN OR ??? PRO REMOVAL DEEP IMPLANT 08/15/2010 REMOVAL IMPLANT, DEEP, BRUNO performed by BARRERA OLIVER at [facility] MAIN OR ??? PRO REMOVAL ERUPTED TOOTH WITH ELEVATION OF MUCOPERIOSTEAL FLAP N/A 06/14/2018 SURGICAL EXTRACTIONS REQUIRING ELEVATION OF MUCOPERIOSTEAL FLAP AND REMOVAL OF BONE OR SECTION OF TOOTH (WRVU 1.09) performed by Keith Cotton MD at [facility] ??? PRO REMOVE INFUSN DEVICE/PUMP N/A 05/11/2014 REMOVAL OF SPINE INFUSION PUMP performed by Jamaal Samuel MD at [facility] MAIN OR ??? PRO REMOVE SPINAL CANAL CATHETER N/A 05/11/2014 REMOVAL OF INTRATHECAL OR EPIDURAL CATHETER performed by Jamaal Samuel MD at [facility] OR ??? PRO REPR, DURAL/CSF LEAK, NOT REQ LAMINECTOMY N/A 05/20/2014 @REPAIR DURAL\CSF LEAK,NOT REQUIRING LAMINECTOMY performed by Freddy Isbell MD at [facility] OR Social history and habits: Social History Tobacco Use ??? Smoking status: Never ??? Smokeless tobacco: Never ??? Tobacco comments: NO SMOKERS IN THE HOME Substance Use Topics ??? Alcohol use: No ??? Drug use: No Significant family history: Family History Problem Relation Age of Onset ??? Cancer Maternal Grandmother ??? Heart Disease Maternal Grandfather Pertinent ROS: as per HPI Physical exam: Pending (to be performed in interventional radiology the day of procedure) ASA: Pending (to be assessed in interventional radiology the day of procedure) Mallampati class: Pending (to be assessed in interventional radiology the day of procedure) 06/25/2022 DEMI Haddad * Hank Nunez PA - 06/25/2022 2:21 PM EST Images from the original note were not included. Interventional Radiology Focused Pre-procedure H&P: PCP: Lorna Bal APRN Procedure indication: Quadriplegia, tender erythematous lesion, collections on imaging IR workflow: Interventional Radiology Service contacted by Elenita Call at 1400 regarding the procedurerequest below. History of present illness: Per chart review, Tana Shelton is a 27 y.o. female who presents to Interventional Radiology to undergo sampling/drainage of lumbar subcutaneous collections in setting of fluid on imaging. This is a patient with TBI, cerebral palsy, scoliosis, presenting for evaluation of posterior midline surgical scar that has become progressively tender and erythematous over recent weeks. Imaging concerning for abscess. CT demonstrates 5x3x6 cm irregular collection in the left posterior subcutaneous fat and second, more dense collection centered about a dislocated iliac screw. Elevated CRP/ESR elevated. Afebrile, no leukocytosis. IR consulted for aspiration of fluid areas, indwelling drainage as indicated. Consent obtained from mother/guardian. Patient tolerates right lateral decubitus position best. Remainder of patient's medical and surgical history, allergies, medications, and social/family history obtained below as previously outlined in patient's medical record. IR history: none Imaging: Assessment: 27 y.o. female with fluid collection in lower lumbar area presenting to Interventional Radiology for sampling, possible drainage. Assessment for moderate sedation pending based on patient's ability to communicate. May proceed with single medication anxiolysis vs analgesia vs anesthesia as necessary. Plan Planned procedure: Lumbar aspiration vs drainage Labs to be performed day of procedure: No labs Sedation: Moderate (Conscious sedation) Prophylactic antibiotic : None Contrast: No contrast Additional medications for procedure: Lidocaine Position: Supine Consent: Completed Medications to discontinue (and days held): None Cytopathology presence needed: No Case Urgency:: D- Intervention within 24 hrs Plan or recommendation formulated in discussion with and directed by Interventional Radiology attending physician Clair. Labs: Lab Results Component Value Date HGB 9.8 (L) 06/25/2022 HCT 30.7 (L) 06/25/2022 WBC 7.2 06/25/2022 PLATELET 437 (H) 06/25/2022 BUN 9 06/25/2022 CREATININE 0.30 (L) 06/25/2022 ALBUMIN 3.9 05/22/2014 BILIDIR 0.1 05/22/2014 BILITOT 0.2 05/22/2014 AST 13 05/22/2014 ALT 16 05/22/2014 ALKPHOS 65 05/22/2014 Allergies: Fluoxetine, Tegaderm [transparent dressings], and Penicillins Medications: No current facility-administered medications on file prior to encounter. Current Outpatient Medications on File Prior to Encounter Medication Sig Dispense Refill ??? senna (Senokot) 8.6 mg Tablet Take 2 tablets by mouth nightly. ??? cefPODOXime (Vantin) 200 mg Tablet Take 200 mg by mouth 2 times daily. ??? nystatin (MYCOSTATIN) 100,000 unit/gram Powder Apply 1 each topically 2 times daily. ??? baclofen (Lioresal) 10 mg Tablet Take 10 mg by mouth 2 times daily. ??? multivitamin (THERAGRAN) Tablet Take 1 tablet by mouth daily. ??? POLYETHYLENE GLYCOL 3350 (MIRALAX ORAL) Take 17 g by mouth as needed. Past medical/surgical history: Patient Active Problem List Diagnosis Code ??? 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 Acquired dysplasia of hip, bilateral M21.859 ??? Edema leg R60.0 ??? Scoliosis M41.9 ??? Spasticity R25.2 ??? Presence of intrathecal baclofen pump Z97.8 ??? Right leg pain M79.604 ??? Fracture of femur, distal S72.409A ??? 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 M46.20 No past medical history on file. Past Surgical History: Procedure Laterality Date ??? BACK SURGERY scoliosis repair ??? HIP OSTEOTOMY bilateral ??? PRO APPLY OF HIP CASTS, TWO LEGS 08/15/2010 CAST APPLICATION, HIP SPICA, BOTH LEGS performed by BARRERA OLIVER at [facility] MAIN OR ? ? PRO I&D, POST SPINE, LUMB/SACR/LUMBOSAC N/A 05/20/2014 @I & D, OPEN, DEEP ABSCESS, LUMBAR, SACRAL, LUMBOSACRAL performed by Freddy Isbell MD at [facility] MAIN OR ? ? PRO I&D, POST SPINE, LUMB/SACR/LUMBOSAC N/A 05/26/2014 @I & D, OPEN, DEEP ABSCESS, LUMBAR, SACRAL, LUMBOSACRAL performed by Freddy Isbell MD at [facility] MAIN OR ??? PRO IMPACT TOOTH REMOV COMP BONY N/A 06/14/2018 SURGICAL EXTRACTIONS, REMOVAL OF IMPACTED TOOTH, COMPLETELY BONY (WRVU 1.93) performed by Keith Cottno MD at [facility] ??? PRO OSTEOTOMY FEMUR SHAFT/SUPRACONDY 08/15/2010 ??OSTEOTOMY, FEMUR SHAFT OR SUPRACONDYLAR W/O FIXATION performed by BARRERA OLIVER at [facility] OR ??? PRO RECONSTRUC HIP SOCKET, RESEC FEM HEAD 08/15/2010 ??ACETABULOPLASTY (GIRDLESTONE), RESECTION FEMORAL HEAD, BILATERAL performed by BARRERA OLIVER [facility] OR ??? PRO REMOVAL DEEP IMPLANT 08/15/2010 REMOVAL IMPLANT, DEEP, BRUNO performed by BARRERA OLIVER at [facility] OR ??? PRO REMOVAL ERUPTED TOOTH WITH ELEVATION OF MUCOPERIOSTEAL FLAP N/A 06/14/2018 SURGICAL EXTRACTIONS REQUIRING ELEVATION OF MUCOPERIOSTEAL FLAP AND REMOVAL OF BONE OR SECTION OF TOOTH (WRVU 1.09) performed by Keith Cotton MD at [facility] ??? PRO REMOVE INFUSN DEVICE/PUMP N/A 05/11/2014 REMOVAL OF SPINE INFUSION PUMP performed by Jamaal Samuel MD at [facility] OR ??? PRO REMOVE SPINAL CANAL CATHETER N/A 05/11/2014 REMOVAL OF INTRATHECAL OR EPIDURAL CATHETER performed by Jamaal Samuel MD at [facility] OR ??? PRO REPR, DURAL/CSF LEAK, NOT REQ LAMINECTOMY N/A 05/20/2014 @REPAIR DURAL\CSF LEAK,NOT REQUIRING LAMINECTOMY performed by Freddy Isbell MD at [facility] OR Social history and habits: Social History Tobacco Use ??? Smoking status: Never ??? Smokeless tobacco: Never ??? Tobacco comments: NO SMOKERS IN THE HOME Substance Use Topics ??? Alcohol use: No ??? Drug use: No Significant family history: Family History Problem Relation Age of Onset ??? Cancer Maternal Grandmother ??? Heart Disease Maternal Grandfather Pertinent ROS: as per HPI Physical exam: Pending (to be performed in interventional radiology the day of procedure) ASA: Pending (to be assessed in interventional radiology the day of procedure) Mallampati class: Pending (to be assessed in interventional radiology the day of procedure) 06/25/2022 DEMI Haddad * Eddi Vázquez MD - 06/24/2022 10:00 PM EST Inpatient Hospital Medicine - Admission Note Problem List: Active Hospital Problems Diagnosis ??? 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 Resolved Hospital Problems No resolved problems to display. Active Non-Hospital Problems Diagnosis ??? Fracture of femur, distal ??? Contracture of elbow ??? Right leg pain ??? Presence of intrathecal baclofen pump ??? Spasticity ??? Scoliosis ??? Edema leg ??? Acquired dysplasia of hip, bilateral ??? 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 Female presents to [facility] with redness and drainage from midline surgical scar of the lumbar area History of Present Illness: HPI The patient is a 27-year-old female, PMH of TBI with spastic quadriplegia, CP, nonverbal, scoliosis, s/p PSF(02/2009), prior bilateral Girdlestone's-2010 who has had increasing redness and tendernessover the midline surgical scar on the back since the last 3 weeks or so. She was evaluated by her PCP and was given Keflex with some improvement however on 06/17 she was brought to [facility] by her corrugator for possibly increased back pain and received IV antibiotics for presumed cellulitis. No evidence of draining wounds or areas was seen at that time and the patientwas not septic. Radiographs did not demonstrate evidence of hardware loosening, a US was performed which showed a 8x9mm subcutaneous fluid collection and was evaluated by orthopedics there who did not recommend aspiration. Subsequently discharged on oral antibiotics, however PCP referred them to for further evaluation. The caregiver states that she has noticed increased redness over the last few days. In the ED temp was 36.1, BP 93/79, sat 100% on room air. Labs with normal WBC at 6.8. BMP unremarkable. CRP elevated at 96.9 versus 7.5 previously, ESR 119. Further evaluation with CT imaging showed 2 irregular fluid collections within the posterior subcutaneous fat at the lumbar region with possible deep extension to the level of L1 and L2 lamina on the left side. Denser soft tissue collection around the dislocated right iliac screw likely chronic organized hematoma. She was evaluated by spinesurgery with recommendations for IR guided aspiration and drainage tomorrow. Holding antibiotics for better yield till then Review of Systems: Review of Systems 10 point ROS is negative except above Past Medical and Surgical History: PMH, PSH, FH, SH reviewed No past medical history on file. Past Surgical History: Procedure Laterality Date ??? BACK SURGERY scoliosis repair ??? HIP OSTEOTOMY bilateral ??? PRO APPLY OF HIP CASTS, TWO LEGS 08/15/2010 CAST APPLICATION, HIP SPICA, BOTH LEGS performed by BARRERA OLIVER at [facility] MAIN OR ? ? PRO I&D, POST SPINE, LUMB/SACR/LUMBOSAC N/A 05/20/2014 @I & D, OPEN, DEEP ABSCESS, LUMBAR, SACRAL, LUMBOSACRAL performed by Freddy Isbell MD at [facility] MAIN OR ? ? PRO I&D, POST SPINE, LUMB/SACR/LUMBOSAC N/A 05/26/2014 @I & D, OPEN, DEEP ABSCESS, LUMBAR, SACRAL, LUMBOSACRAL performed by Freddy Isbell MD at [facility] MAIN OR ??? PRO IMPACT TOOTH REMOV COMP BONY N/A 06/14/2018 SURGICAL EXTRACTIONS, REMOVAL OF IMPACTED TOOTH, COMPLETELY BONY (WRVU 1.93) performed by Keith Cotton MD at [facility] ??? PRO OSTEOTOMY FEMUR SHAFT/SUPRACONDY 08/15/2010 ??OSTEOTOMY, FEMUR SHAFT OR SUPRACONDYLAR W/O FIXATION performed by BARRERA OLIVER at [facility] MAIN OR ??? PRO RECONSTRUC HIP SOCKET, RESEC FEM HEAD 08/15/2010 ??ACETABULOPLASTY (GIRDLESTONE), RESECTION FEMORAL HEAD, BILATERAL performed by BARRERA OLIVER [facility] MAIN OR ??? PRO REMOVAL DEEP IMPLANT 08/15/2010 REMOVAL IMPLANT, DEEP, BRUNO performed by BARRERA OLIVER at [facility] MAIN OR ??? PRO REMOVAL ERUPTED TOOTH WITH ELEVATION OF MUCOPERIOSTEAL FLAP N/A 06/14/2018 SURGICAL EXTRACTIONS REQUIRING ELEVATION OF MUCOPERIOSTEAL FLAP AND REMOVAL OF BONE OR SECTION OF TOOTH (WRVU 1.09) performed by Keith Cotton MD at [facility] ??? PRO REMOVE INFUSN DEVICE/PUMP N/A 05/11/2014 REMOVAL OF SPINE INFUSION PUMP performed by Jamaal Samuel MD at [facility] MAIN OR ??? PRO REMOVE SPINAL CANAL CATHETER N/A 05/11/2014 REMOVAL OF INTRATHECAL OR EPIDURAL CATHETER performed by Jamaal Samuel MD at [facility] MAIN OR ??? PRO REPR, DURAL/CSF LEAK, NOT REQ LAMINECTOMY N/A 05/20/2014 @REPAIR DURAL\CSF LEAK,NOT REQUIRING LAMINECTOMY performed by Freddy Isbell MD at [facility] MAIN OR Prior To Admission Medications: (Not in a hospital admission) Allergies: Allergies Allergen Reactions ??? Fluoxetine Other (See Comments) HIVES, HEART RACES ??? Tegaderm [Transparent Dressings] Itching and Dermatitis Please use [id number] ??? Penicillins Family History: Family History Problem [...] Administered Date(s) Administered ??? Influenza Vaccine (Novel) [id number], Injectable 02/25/2009 ??? Influenza Vaccine w/Preservative, Split 04/25/2011 ??? Influenza Vaccine, Whole 03/27/2009 Physical Exam: Last Set of Vitals and range of vitals over past 24 hours: Last value Range last 24 hrs Temperature Temp: 36.1 ??C (96.9 ??F) Temp: [36.1 ??C (96.9 ??F)] Heart Rate Heart Rate: 78 Heart Rate: [78-96] Blood Pressure BP: 94/64 BP: (93-100)/(64-81) Respiratory Rate Resp: 12 Resp: [12-18] SpO2 SpO2: 98 % SpO2: [98 %-100 %] Body mass index is 19.75 kg/m??. Physical Exam Constitutional: Appearance: Normal appearance. HENT: Nose: Nose normal. Cardiovascular: Rate and Rhythm: Normal rate and regular rhythm. Pulses: Normal pulses. Heart sounds: Normal heart sounds. Pulmonary: Effort: Pulmonary effort is normal. No respiratory distress. Breath sounds: Normal breath sounds. Abdominal: General: Abdomen is flat. Bowel sounds are normal. There is no distension. Palpations: Abdomen is soft. Tenderness: There is no abdominal tenderness. Musculoskeletal: General: No swelling. Normal range of motion. Cervical back: Normal range of motion. Skin: General: Skin is warm and dry. Capillary Refill: Capillary refill takes less than 2 seconds. Neurological: General: No focal deficit present. Mental Status: She is alert and oriented to person, place, and time. Psychiatric: Mood and Affect: Mood normal. Laboratory (Last 24 Hours): Recent Results (from the past 24 hour(s)) Basic Metabolic Panel (non-fasting) Result Value Ref Range Glucose Lvl 97 65 - 199 mg/dL BUN 9 8 - 18 mg/dL Creatinine 0.26 (L) 0.70 - 1.20 mg/dL Sodium 143 135 - 145 mmol/L Potassium 3.9 3.5 - 5.0 mmol/L Chloride 104 98 - 107 mmol/L CO2 27 22 - 31 mmol/L Anion Gap 12 5 - 15 mmol/L Calcium 10.0 8.5 - 10.5 mg/dL Estimated GFR 152 >=60 mL/min/1.73 m?? CRP, acute inflammation Result Value Ref Range CRP 96.9 (H) <=4.9 mg/L Sedimentation rate Result Value Ref Range Sed Rate >119 (H) 2 - 37 mm/hr Hemogram Result Value Ref Range WBC 6.8 4.0 - 9.5 x10(3)/mcL RBC 4.40 4.00 - 5.21 x10(6)/mcL Hemoglobin 10.5 (L) 11.7 - 15.5 g/dL Hematocrit 33.6 (L) 35.7 - 45.8 % MCV 76.4 (L) 82.6 - 94.4 fL MCH 23.9 (L) 27.1 - 32.0 pg MCHC 31.3 (L) 31.7 - 35.0 g/dL Platelets 516 (H) 145 - 357 x10(3)/mcL RDWSD 48.5 (H) 37.0 - 46.0 fL RDWCV 17.8 (H) 11.5 - 14.1 % MPV 9.0 7.6 - 12.9 fL nRBC % Auto 0.0 % nRBC Abs Auto 0.000 0.000 - 0.000 x10(3)/mcL Differential, Automated Result Value Ref Range Neutrophils % 63.2 % Neutr Abs (ANC) 4.29 1.70 - 6.10 x10(3)/mcL Lymphocytes % 29.4 % Lymphocytes Abs 2.0 0.9 - 3.2 x10(3)/mcL Monocytes % 4.6 % Monocyte Abs 0.3 0.3 - 0.9 x10(3)/mcL Eosinophils % 1.8 % Eosinophils Abs 0.1 0.0 - 0.4 x10(3)/mcL Basophils % 0.7 % Basophils Abs 0.0 0.0 - 0.1 x10(3)/mcL Immature Gran % 0.30 % Debora Gran Abs 0.02 0.00 - 0.04 x10(3)/mcL Basic Metabolic Panel (non-fasting) Result Value Ref Range Glucose Lvl 97 65 - 199 mg/dL BUN 9 8 - 18 mg/dL Creatinine 0.30 (L) 0.70 - 1.20 mg/dL Sodium 140 135 - 145 mmol/L Potassium 4.1 3.5 - 5.0 mmol/L Chloride 103 98 - 107 mmol/L CO2 27 22 - 31 mmol/L Anion Gap 10 5 - 15 mmol/L Calcium 9.4 8.5 - 10.5 mg/dL Estimated GFR 147 >=60 mL/min/1.73 m?? Hemogram Result Value Ref Range WBC 7.2 4.0 - 9.5 x10(3)/mcL RBC 4.06 4.00 - 5.21 x10(6)/mcL Hemoglobin 9.8 (L) 11.7 - 15.5 g/dL Hematocrit 30.7 (L) 35.7 - 45.8 % MCV 75.6 (L) 82.6 - 94.4 fL MCH 24.1 (L) 27.1 - 32.0 pg MCHC 31.9 31.7 - 35.0 g/dL Platelets 437 (H) 145 - 357 x10(3)/mcL RDWSD 48.7 (H) 37.0 - 46.0 fL RDWCV 17.9 (H) 11.5 - 14.1 % MPV 8.9 7.6 - 12.9 fL nRBC % Auto 0.0 % nRBC Abs Auto 0.000 0.000 - 0.000 x10(3)/mcL Differential, Automated Result Value Ref Range Neutrophils % 60.4 % Neutr Abs (ANC) 4.34 1.70 - 6.10 x10(3)/mcL Lymphocytes % 30.3 % Lymphocytes Abs 2.2 0.9 - 3.2 x10(3)/mcL Monocytes % 7.2 % Monocyte Abs 0.5 0.3 - 0.9 x10(3)/mcL Eosinophils % 1.4 % Eosinophils Abs 0.1 0.0 - 0.4 x10(3)/mcL Basophils % 0.6 % Basophils Abs 0.0 0.0 - 0.1 x10(3)/mcL Immature Gran % 0.10 % Edbora Gran Abs 0.01 0.00 - 0.04 x10(3)/mcL Microbiology: Blood Cultures: Urine Cultures: Radiology: CXR - CT - IMPRESSION There are 2 irregular collections within the posterior subcutaneous fat of the lumbar region. The more superior collection appears to have deep extension to the level of the L1 and L2 lamina on the left side, but evaluation is marred by artifact. Findings are nonspecific, but infected collection is a possibility. ?? Denser soft tissue collection centered about the dislocated right iliac screw was present on prior study but better visualized on current study. This may represent a chronic organized hematoma. Ultrasound - MRI - Other Studies: EKG - Echocardiogram - Vascular Studies - Pulmonary Report - Endoscopy - Assessment: 27-year-old female, PMH of TBI with spastic quadriplegia, CP, s/p intrathecal baclofen pump and removal complicated by site infection, bacteremia, nonverbal, scoliosis, s/p PSF(02/2009), prior bilateral Girdlestone's-2010 who has had increasing redness and tenderness over the midline surgical scar on the back since the last 3 weeks treated as cellulitis as an outpatient with Keflex, followed by an inpatient admission for 3 days where a fluid collection was seen(not drained) and subsequently referred to for further management In the ED temp was 36.1, BP 93/79, sat 100% on room air. Labs with normal WBC at 6.8. BMP unremarkable. CRP elevated at 96.9 versus 7.5 previously, ESR 119. Further evaluation with CT imaging showed 2 irregular fluid collections within the posterior subcutaneous fat at the lumbar region with possible deep extension to the level of L1 and L2 lamina on the left side. Denser soft tissue collection around the dislocated right iliac screw likely chronic organized hematoma. She was evaluated by spinesurgery with recommendations for IR guided aspiration and drainage tomorrow. Holding antibiotics for better yield till then #Cellulitis lumbar back region #Fluid collection in the lumbar subcutaneous fat - Infected versus serous, IR guided drainage today - Patient stable - Holding antibiotics till aspiration - Inflammatory markers elevated - N.p.o. #TBI with spastic quadriplegia #Cerebral palsy, nonverbal #Scoliosis s/p PSF, prior bilateral Girdlestone - Continue baclofen 10 Mg p.o. twice daily - Tylenol as needed #DVT prophylaxis-Lovenox CODE STATUS-full code A copy of this document will be sent to the patient's Primary Care Physician and/or Referring Physician. Eddi Vázquez MD documented in this encounter ED Notes * Shanel Iniguez RN - 06/25/2022 9:23 AM EST This RN assisted the caregiver with helping clean the patient, give them a bed bath and reposition in bed. More pillows added to support the pt head and neck as well as take some pressure off of her elbows/arms. * Shanel Iniguez RN - 06/25/2022 7:34 AM EST IV team paged to help get blood cultures. Pt is a hard stick and the IV team was utilized last night with getting pt IV access. * Lucy Mitchell RN - 06/24/2022 11:22 PM EST Assumed care of pt. Pt asleep on stretcher. Stores called to order a recliner for pts caregiver at bedside. Will continue to monitor. * Annabella Crawford APRN - 06/24/2022 2:53 PM EST Images from the original note were not included. ED Provider Note HPI: Tana Shelton is a 27 y.o. female with a PMHx of spastic quadriplegia CP, scoliosis s/p PSF (03/20/09), prior bilateral girdlestones (2010 Dr. Oliver). She was brought to her PCP 10 days ago for evaluation of cellulitis on her back and was subsequently started on Keflex and has had improvement in thecellulitis. Tana was brought [facility] on 06/17/2022 by her corrugator as there was some concern for having perceived pain her back (patient is non-verbal). Patient was hospitalized for IV antibiotic treatment of a presumed cellulitis. examination by providers at [facility] did not not preceded evidence of pain, with minimal erythema in the back, no evidence of draining wounds, or areas of fluctuance, and the patient was at her baseline neurologic state without new deficits. Radiographs were obtained which do did not demonstrate any evidence of hardware loosening, or change in alignment of hardware. An ultrasound was performed, which demonstrated an 8mm x 9mm subcutaneous fluid collection which may represent an abscess, seroma, or resolving hematoma. The patient was evaluated by orthopaedics at [facility] (Dr. Weiss) who did not recommend attempting to aspirate the area. Inflammatory labs on 06/19/20 were: WBC: 7, CRP: 7.5. She is afebrile, and there have been no fevers since the time she began oral antibiotics for the cellulitis. Prior to discharge Dr. Simmons from orthopedics at [facility] once consulted. Per his note on 06/19/2022 recommendation was that patient continue her antibiotic course for cellulitis (patient is on cefpodoxime) and that she may follow-up inthe spine clinic if caregivers do not continue to see improvement. Caregivers present to the ED today as they called patient's PCP for follow-up and PCP stated that patient must go to the ED for reevaluation and that PCP is not comfortable with continuing care for this issue given possibility of underlying possible abscess. Per caregivers, patient is at her baseline however states that the area of redness does seem to be progressing again since her discharge from [facility] on 06/19/2020. Patient hasbeen afebrile with no changes in urine smell or color or change in baseline behavior. History obtained from patient's caregiver and chart review as patient is nonverbal. ROS as per HPi Vitals: ED Triage Vitals [06/24/22 1317] BP: 93/79 Heart Rate: 96 Resp: 18 Temp: 36.1 ??C (96.9 ??F) Temp src: Tympanic SpO2: 100 % O2 Device: RA O2 Flow Rate (L/min): n/a Physical Exam Vitals and nursing note reviewed. HENT: Head: Normocephalic and atraumatic. Cardiovascular: Rate and Rhythm: Normal rate and regular rhythm. Pulses: Normal pulses. Heart sounds: Normal heart sounds. Pulmonary: Effort: Pulmonary effort is normal. Breath sounds: Normal breath sounds. Musculoskeletal: Comments: There is mild erythema midline tenderness to palpation over the L- spine by previous surgical incision. There is no drainage or bleeding. No step- offs, crepitus or deformities noted. Skin: General: Skin is warm and dry. Findings: Erythema present. Neurological: Mental Status: She is alert. Mental status is at baseline. ED Course: I have reviewed labs and imaging, images and available reports, and they are significant for: Patient's laboratory values are significant for CRP of 96.9 is a marked elevation from 06/19when patient'sCRP was 7.54. Sed rate greater than 119. Patient does not have any leukocytosis remainder of patient's laboratory values are within clinically acceptable limits. Paged neurosurgery to discuss imaging options. Neurosurgery requested I reach out to orthopedics [facility] are following patient and did the previous consult note from [facility]. Spoke with orthopedics who are recommending touching base with radiology to see if adding contrast to his CT would help characterize the fluid collection. CT significant for 2 irregular collections within the posterior subcutaneous fat of the lumbar region. 1908: Have paged Ortho surgery to discuss findings and plan. Ortho states that they do not follow her and therefore are recommending I reach out to neurosurgery as they do not have spine coverage. 1925: Spoke with neurosurgery who dictated that this should be discussed with orthopedics. I indicated to the neurosurgery resident that orthopedics specifically requests that I speak with them regarding plan. 2001: Caregivers are getting anxious regarding hour-long drive home and the weather conditions and are wondering about plan. Have repaged neurosurgery for plan 2046: Orthopedics were able to reach their quality improvement specialist and will evaluate patient. Plan based on initial laboratory work-up and CT results is for IR guided drainage of the abscess tomorrow. Orthopedics has requested initiation of hospital medicine admission. Plan has been discussed with patient's caregivers who are agreeable thereto. CT Lumbar Spine w Contrast Final Result There are 2 irregular collections within the posterior subcutaneous fat of the lumbar region. The more superior collection appears to have deep extension to the level of the L1 and L2 lamina on the left side, but evaluation is marred by artifact. Findings are nonspecific, but infected collection is a possibility. Denser soft tissue collection centered about the dislocated right iliac screw was present on prior study but better visualized on current study. This may represent a chronic organized hematoma. Thank you for letting us participate in the care of this patient. If you are a health care provider and have any questions regarding this report, please contact the number below. For patients who have questions please contact the health critical care specialist that requested your imaging first. Electronically signed by: Jamaal Villafuerte [facility] ([phone]), at 06/24/2022 6:56 PM Assessment and Plan: 27 y.o. female with history of spastic quadriplegia CP, scoliosis, prior bilateral Girdlestone's who was recently discharged home on 06/19/2021 from [facility] where she received IV antibiotics for possible cellulitis to the lumbar spine surrounding old surgical site. Ultrasound there was significant for8 mm x 9 mm subcutaneous fluid collection which was determined to be a possible abscess, seroma or resolving hematoma. Patient received IV antibiotics while at [facility] and was discharged on p.o. cefpodoxime which patient has been taking. Patient was brought into the ED by caregivers as PCP was not comfortable with discharge plan for further work-up and evaluation. CT is significant for 2 irregular collections within the posterior subcutaneous fat of the lumbar region. The more superior collection appears to have deep extension to the level of the L1 and L2 lamina on the left side. Denser soft tissue collection centered at the dislocated right iliac screw waspresent on prior study but better visualized on current study. This may represent a chronic organized hematoma. Patient's laboratory values are significant for CRP 96.9, sed rate greater than 119. Remainder of patient's laboratory values are within clinically acceptable limits. Ortho spine will see patient but based on imaging and inflammatory markers have recommended hospital admission for IR guided drainage of the abscess tomorrow. Plan discussed with caregivers were agreeable thereto. Patient admitted to hospital medicine. Did this case involve critical care? No The visit findings, diagnosis, and care plan were discussed with the patient. Annabella Crawford APRN [id number] * Kristel Oneil RN - 06/24/2022 2:27 PM EST 2:27 PM introduced self/role to pt and caregivers. Pt is developmentally delayed and is in normal mental state. Speaks in one word sentences, alert to self. 3:35 PM MD at bedside inserting ultrasound guided IV. Caregivers at bedside comforting patient. 4:58 PM pt resting comfortably with caregivers at bedside. 9:07 PM MD at bedside updating mom over the phone regarding admission. Caregivers at bedside. Pt isin NAD. 9:47 PM caregivers have left the bedside to get food. Pt is alert and resting comfortably in bed. * Kvng Damon PA - 06/24/2022 1:08 PM EST ED triage note Pt is 27 yo F with history of TBI with spastic quadriplegia, prior spine surgery many years ago. Has developed an redness and would on the spine for 3 wks. ? Cellulitis was on abx, seen at OSH and admitted . Sent to for re-eval. No fever, accompanied by caregivers. Chronically ill-appearing female resting in her wheelchair noted afeb 93/79 98 100% resp nad Neuro alert 27-year-old female with history of spastic quadriplegia scoliosis. Comes in with some redness over her lower back incision. Concern for cellulitis and infection. Sent from outside hospital where she was admitted recently We will get some basic labs, CRP, sed rate, evaluation the main ED Kvng Damon PA 06/24/22 1313 documented in this encounter Miscellaneous Notes * Care Management Discharge - Phyllis Abraham RN - 07/09/2022 10:29 AM EDT CARE MANAGEMENT FINAL DISCHARGE NOTE Chart reviewed, care reviewed with primary team and at interdisciplinary rounds. Patient is medically ready for discharge to Home. Needs for Transition of Care: Plan for discharge is: Home w/ Services Outpatient Agency/Support Group Needs: Homecare agency Home Health Services: Registered Nurse Agency Referrals & Follow-up Care: Contact information for [facility] [id number] [place] [id number] Transportation: family or friend will provide *Mother and caregiver will transport in handicapped van Wheelchair van/Ambulance? No Functional status prior to admission: Completely Dependent Home Environment: Others in the home: roomate(s), other (see comments) (caregiver, Fannie). Current Living Arrangements: home/apartment/condo. Accessibility Concerns:ramp to enter the home.. Current Functional Ability: Completely Dependent DME used at home: hospital bed, lift device DME Needed at Discharge: None Patient is insured through: Primary Insurance: [place] Payor: [place] / Plan: [place] / Product Type: *No Product type* / Secondary Insurance: N/A Prescription Coverage: Yes This plan was formulated with input from patient, mother John and team. All are in agreement with plan. Phyllis Abraham RN, BSN Measurement Operator - Medicine Office of Care Management Office: Pager: [phone] * Plan of Care - Jigna Neal RN - 07/09/2022 10:27 AM EDT Tana Shelton discharged to Home by private car with caregivers. All belongings sent with patient. MANNY removed, incision healing well, skin free from pressure ulcers. Discharge instructions, medications, and follow-up appointments reviewed, education provided on antibotics, paper prescriptions given to patient, all questions answered. Caregivers instructed to call with concerns. * Plan of Care - Janna Dennison RN - 07/09/2022 3:28 AM EDT OUTCOME EVALUATION NOTE: OUTCOME SUMMARY: VSS on RA, Alert, nonverbal, unable to assess orientation. Pills crushed in pudding. Mom at the bedside, turning/changing patient. Resting between care, no acute events. PLAN MOVING FORWARD: D/c planning PO anbx INDIVIDUALIZED FALL PREVENTION INTERVENTIONS: Patient-specific fall risk factors per assessment: [current deficits]: Generalized weakness, immobility Assistance [level of assistance required for transfers and ambulation]: 2A w/ lift Supervision [direct monitoring required during toileting and ADLs]: Hands on Surveillance [continuous indirect monitoring]: Purposeful rounding, call fay in reach, caregiver at bedside Patient-specific fall prevention interventions for sensory deficits provided, if applicable: CARE PLAN GOAL OUTCOME EVALUATION: * Plan of Care - Vi Bonds RN - 07/08/2022 6:41 PM EDT OUTCOME EVALUATION NOTE: ?? OUTCOME SUMMARY: ?? Pt remains alert, though nonverbal throughout shift; unable to assess orientation. VSS on RA. Pt has good oral intake throughout shift with encouragement. Mother remains at bedside throughout night. No episodes of emesis today. CARMELLA drain removed today per IR, guaze and tegaderm dressing clean, dry and intact. Incontinence care provided as needed, pt does not have BM, but has dose of miralax and senna. IV antibiotics continued, plan to transition to oral tomorrow 07/09. Medications given per JUN, assessment as filed. Will continue to monitor and notify team of changes. ?? PLAN MOVING FORWARD: ?? Encourage PO intake IV antibiotics, transition to oral 07/09 VS monitoring D/C home 07/09 ?? INDIVIDUALIZED FALL PREVENTION INTERVENTIONS: ?? Patient-specific fall risk factors per assessment: [current deficits]:?Decreased mobility, IV sites/lines, decreased orientation ?? Assistance [level of assistance required for transfers and ambulation]:?2a with lift OOB ?? Supervision [direct monitoring required during toileting and ADLs]:?Hands on, eyes on ?? Surveillance [continuous indirect monitoring]:?Caregiver at bedside, purposeful rounding ?? Patient-specific fall prevention interventions for sensory deficits provided, if applicable:?[X]N/A * Plan of Care - Diandra Luo - 07/08/2022 3:11 AM EDT OUTCOME EVALUATION NOTE: OUTCOME SUMMARY: Physical assessment as charted. Pt is alert and cooperative, though nonverbal. MARYA orientation. VSSon RA. Meds given per MAR and crushed in pudding with help pursuading from mother. CARMELLA drain is intact with little to no output overnight. Incontinence care and turning performed. Caregiver at the bedside participating in care and attending to pt's needs. Resting between care. Safety maintained at this time. PLAN MOVING FORWARD: D/C planning IV abx Monitor vitals INDIVIDUALIZED FALL PREVENTION INTERVENTIONS: Patient-specific fall risk factors per assessment: [current deficits]: Poor mobility, IV sites, MARYA orientation Assistance [level of assistance required for transfers and ambulation]: 2A w/ Lift Supervision [direct monitoring required during toileting and ADLs]: Hands on, eyes on Surveillance [continuous indirect monitoring]: Purposeful rounding, caregiver at bedside, bed in lowest position, room near unit station, call fay within reach. Patient-specific fall prevention interventions for sensory deficits provided, if applicable: [X] N/A CPG GOAL OUTCOME EVALUATION: * Plan of Care - Vi Bonds RN - 07/07/2022 5:40 PM EDT OUTCOME EVALUATION NOTE: OUTCOME SUMMARY: Pt remains alert, though nonverbal throughout shift; unable to assess orientation. VSS on RA ex forx1 hypotensive BP of 80's/50's; MDs aware and no updates to plan of care, monitor for now. Pt has fair oral intake throughout shift with encouragement. Mother at bedside, pt visibly happy. No episodes of emesis today. CARMELLA drain intact with scant serosanguinous fluid. Incontinence care provided as needed, pt does not have BM, but has dose of miralax. IV antibiotics continued, plan to transition to oral. Medications given per JUN, assessment as filed. Will continue to monitor and notify team of changes. PLAN MOVING FORWARD: Encourage PO intake IV antibiotics, transition to oral? VS monitoring INDIVIDUALIZED FALL PREVENTION INTERVENTIONS: Patient-specific fall risk factors per assessment: [current deficits]: Decreased mobility, IV sites/lines, decreased orientation ?? Assistance [level of assistance required for transfers and ambulation]: 2a with lift OOB ?? Supervision [direct monitoring required during toileting and ADLs]: Hands on, eyes on ?? Surveillance [continuous indirect monitoring]: Caregiver at bedside, purposeful rounding ?? Patient-specific fall prevention interventions for sensory deficits provided, if applicable: [X] N/A * Plan of Care - Janna Dennison RN - 07/07/2022 4:51 AM EDT OUTCOME EVALUATION NOTE: OUTCOME SUMMARY: Bps 90s/60s, MAP > 65, all other vitals WNL on RA. MARYA orientation, appears comfortable in bed. Alert, follows commands. Pills crushed in pudding, only able to tolerate a few bites. Poor PO intake, small sips observed. IVF continued through the night, d/c this AM per MAR/MD. CARMELLA drain intact, little to no output observed. Incontinence care provided. Caregiver at the bedside participating in care/ attentive to patient's needs. Resting quietly in bed between care, no acute events. PLAN MOVING FORWARD: D/c planning Mx vitals IV anbx INDIVIDUALIZED FALL PREVENTION INTERVENTIONS: Patient-specific fall risk factors per assessment: [current deficits]: Generalized weakness Assistance [level of assistance required for transfers and ambulation]: 2A w/ lift Supervision [direct monitoring required during toileting and ADLs]: Hands on Surveillance [continuous indirect monitoring]: Purposeful rounding, call fay in reach, bed alarm on, caregiver at bedside Patient-specific fall prevention interventions for sensory deficits provided, if applicable: CARE PLAN GOAL OUTCOME EVALUATION: * Plan of Care - Vi Bonds RN - 07/06/2022 6:25 PM EDT OUTCOME EVALUATION NOTE: OUTCOME SUMMARY: Pt remains awake and alert, unable to assess neuro status as she is nonverbal at baseline; makes incomprehensible sounds. Per caregiver is more tired than usual. VSS on RA ex for hypotensive BP. In AM, BP is 84/59, and received a one time 500mL bolus of LR and 100mL/hr maintenance fluids. With evening vitals, BP down to 71/40; team and life safety aware, ordered additional bolus of 500mL NS, and IVF increased to 150mL/hr. Has x1 episode of emesis, given zofran x1 with good effect, and compazinex1 post-meal. CARMELLA drain remains intact and drains scant amounts of serosanguinous fluid; flushed as ordered. Caregiver at bedside and attentive to patients needs. IV antibiotics continued. Pt continues to have poor PO intake despite encouragement. Medications given per JUN, assessment as filed. Willcontinue to monitor and notify team of changes. PLAN MOVING FORWARD: IV fluids IV antibiotics Encourage PO intake/nutrition INDIVIDUALIZED FALL PREVENTION INTERVENTIONS: Patient-specific fall risk factors per assessment: [current deficits]: Decreased mobility, IV sites/lines, decreased orientation Assistance [level of assistance required for transfers and ambulation]: 2a with lift OOB Supervision [direct monitoring required during toileting and ADLs]: Hands on, eyes on Surveillance [continuous indirect monitoring]: Caregiver at bedside, purposeful rounding Patient-specific fall prevention interventions for sensory deficits provided, if applicable: [X] N/A CARE PLAN GOAL OUTCOME EVALUATION: * Consult Note - Jean-Pierre Godinez RN - 07/06/2022 6:03 PM EDT Called to see Tana by bedside RN for hypotension, BP 71/40 Tana is in bed, awake, with caregiver at bedside. Tana is mostly non-verbal but is happy and smiling. Caregiver explains that she is not her normal self, more tired, been sleeping most of the day. Chart reviewed. Tana is somnolent, keeping eyes open, follows commands. Breathing is normal and unlabored. Skin iswarm, pink, and dry. Oral mucous membranes appear dry. Abdomen soft/non tender. No edema. CARMELLA drain on R lower back is clean and intact, dressing dry, scant serosanguineous drainage. Cap refil is 2-3 seconds in all four. Making good urine per caregiver. Tana is a 27yo female with hx TBI, CP, and numerous orthopedic surgeries. She was admitted on 06/24for increased redness on midline spine scar, found to have E. Coli bacteremia and parainfluenza URTI. Today she is hypotensive and sleepy, likely 2/2 infection, dehydration, poor PO intake. Crystalloid boluses, maintenance fluids started Encourage PO intake Antibiotics, monitor CARMELLA drain Trend lactate H+H, Hgb 7.7 yesterday morning Please call with any questions #[phone] Jean-Pierre Godinez RN * Consult Note - Vi Lawrence, [facility] - 07/05/2022 8:27 AM EST ?? The pharmacist-managed vancomycin consult service will sign-off and vancomycin therapy, if it isto be continued, must be ordered by the responsible prescriber. ?? Pharmacists??? therapeutic drug monitoring will continue for patients receiving vancomycin. Should specific assistance be needed regarding re- initation or continuation of vancomycin therapy, please page the care area pharmacist with any questions you may have. Alternately, during off-hours you comfort mason call [phone] to contact a pharmacist. * Care Management - Phyllis Abraham RN - 07/04/2022 11:47 AM EST OFFICE OF CARE MANAGEMENT PROGRESS NOTE LOS: Hospital Day 10 days Chart reviewed, care reviewed with primary team and at interdisciplinary rounds. Patient continues to meet inpatient level of care related to: sepsis, spinal abscess. Decision Maker: Guardian Guardianship paperwork on file: Yes Decision Maker Name: mother Torres Decision Maker Contact Information: Functional status prior to admission: Completely Dependent Home Environment: Others in the home: roomate(s), other (see comments) (caregiver, Fannie). Current Living Arrangements: home/apartment/condo. Accessibility Concerns: ramp to enter the home.. Current Functional Ability: Completely Dependent */ caregivers at home, may or may not need additional services DME used at home: hospital bed, lift device DME Needed at Discharge: No Patient is insured through: Primary Insurance: [place] Payor[place] / Plan: [place] / Product Type: *No Product type* / Secondary Insurance: N/A Last Physical Therapy Recommendation: with Last Occupational Therapy Recommendation: with Plan for discharge is: Home w/ Services Outpatient Agency/Support Group Needs: Homecare agency Agency Referrals: [facility] following for DC needs and possible acceptance. Transportation: family or friend will provide Barriers to discharge: Discharge planning Plan going forward: Repeat CT lumbar spine today due to recurrent low grade fevers Care Management will continue to follow and assist with discharge planning and coordination of care as indicated. Anticipated Date of Discharge: 07/07/2022 Phyllis Abraham, RN, BSN Measurement Operator - Medicine Office of Care Management Office: Pager: [phone] * Care Management - Amy Trejo RN - 07/02/2022 4:51 PM EST OFFICE OF CARE MANAGEMENT PROGRESS NOTE LOS: Hospital Day 8 days Chart reviewed, care reviewed with primary team and at interdisciplinary rounds. Patient continues to meet inpatient level of care related to: continues need for monitoring of tachycardia (per morning rounds). Decision Maker: Guardian Guardianship paperwork on file: Yes Decision Maker Name: Anderson Thorpe, mother Decision Maker Contact Information: Functional status prior to admission: Completely Dependent Home Environment: Others in the home: roomate(s), other (see comments) (caregiver, Fannie). Current Living Arrangements: home/apartment/condo. Accessibility Concerns: ramp to enter the home.. Current Functional Ability: Completely Dependent *24/ caregivers at home, may or may not need additional services DME used at home: hospital bed, lift device DME Needed at Discharge: No Patient is insured through: Primary Insurance: [place] Pay[place]: [place] / Plan: [place] / Product Type: *No Product type* / Secondary Insurance: N/A Plan for discharge is: Pending Hospital Course and PT/OT Recommendations Outpatient Agency/Support Group Needs: None Agency Referrals: I have met with the hostess party sales representative (anderson) to: ?? discuss discharge planning needs. ?? provide the [facility], Office of Care Management letter from the Cab Station Attendant pertaining to rehabreferrals. ?? provide a letter describing our affiliations within the [facility] and educate about their right to choose where referrals are sent. ?? provide a list of Home Health Agencies / Durable Medical Equipment vendors which serve their preferred geographic area. ?? provided patient with CMS Star Quality Rating handout. They have requested referrals to: [facility]. [address] [place] [id number] Note routed to a Executive Vice President who will communicate referrals to facilities and provide any required information. Transportation: family or friend will provide Barriers to discharge: Discharge planning Plan going forward: Plan pending ID recommendations (per morning rounds). Plan to continue to monitor patient's HR today. Referrals placed to above VNA per guardian request for lab draws. Care Management will continue to follow and assist with discharge planning and coordination of care as indicated. Anticipated Date of Discharge: 07/03/2022 Amy Trejo RN, Pager-[phone] * Plan of Care - Katherine Ryan RN - 07/02/2022 4:51 PM EST OUTCOME EVALUATION NOTE: OUTCOME SUMMARY: Alert on RA, assessment as documented. Does not appear to be in pain. LR 500cc bolus fo SBP 94 increased to 110. HR remain tachy to low 100s. Cont LR discontinued. [facility]ed for UA sample. CXR obtained. High temp of 38. See results. S/p CARMELLA sites CDI. Caregivers at bedside. Continuing to monitor. Safety maintained. Will cont to monitor. PLAN MOVING FORWARD: D.c planning INDIVIDUALIZED FALL PREVENTION INTERVENTIONS: Patient-specific fall risk factors per assessment: [current deficits]: low Assistance [level of assistance required for transfers and ambulation]: bedrest Supervision [direct monitoring required during toileting and ADLs]: 1a Surveillance [continuous indirect monitoring]: Purposeful hourly rounding, call fay within reach, caregiver at bedside Patient-specific fall prevention interventions for sensory deficits provided, if applicable: [X] Yes CARE PLAN GOAL OUTCOME EVALUATION: * Plan of Care - Anurag Contreras RN - 07/01/2022 5:30 PM EST OUTCOME EVALUATION NOTE: OUTCOME SUMMARY: Pt remained free from falls/injury, HR sustaining in 120s/130s, 500cc NS bolus administered with minimal effect. EKG ST. VS otherwise stable, afebrile. No appearance of pain observed or reported fromcaregivers. CARMELLA drain removed in IR, band aid applied, no drainage noted. Pt in good spirits and interactive. PLAN MOVING FORWARD: Plan to trend inflammatory markers Monitor HR Possible d/c tomorrow INDIVIDUALIZED FALL PREVENTION INTERVENTIONS: Patient-specific fall risk factors per assessment: [current deficits]: bed bound Assistance [level of assistance required for transfers and ambulation]: dependent Supervision [direct monitoring required during toileting and ADLs]: hands on/total care Surveillance [continuous indirect monitoring]: masimo, tele, hourly rounding Patient-specific fall prevention interventions for sensory deficits provided, if applicable: [X] N/A CARE PLAN GOAL OUTCOME EVALUATION: * Plan of Care - Zayda Matthews RN - 07/01/2022 6:54 AM EST OUTCOME EVALUATION NOTE: OUTCOME SUMMARY: Patient is mostly nonverbal, able to say some words. Unable to assess orientation level. Patient alert. Tachycardic when moving around up to 117, sustaining in 80s-90s at rest. All other vital signs stable. All scheduled medications administered, see MAR. CARMELLA drain in place and drained a small amount of blood. Caregiver at bedside providing incontinence care. Safety maintained. Patient resting between care. PLAN MOVING FORWARD: Awaiting culture results. Possible surgical intervention, Monitor CARMELLA drain, monitor labs, VS q6 while awake INDIVIDUALIZED FALL PREVENTION INTERVENTIONS: Patient-specific fall risk factors per assessment: [current deficits]: Bed rest Assistance [level of assistance required for transfers and ambulation]: 2 assist with a lift/dependant Supervision [direct monitoring required during toileting and ADLs]: Total care Surveillance [continuous indirect monitoring]: Christina, purposeful rounding * Plan of Care - Anurag Contreras RN - 06/30/2022 4:49 PM EST OUTCOME EVALUATION NOTE: OUTCOME SUMMARY: Pt remained free from falls/injury, VSS, tachycardia resolved. Pt with good appetite and spirits. Interactive on assessment. CARMELLA with <5cc op. No c/o pain, voiding appropriately. Caregiver at bedside for shift. PLAN MOVING FORWARD: Plan to remove drain in IR tomorrow prior to dc Probable d/c tomorrow INDIVIDUALIZED FALL PREVENTION INTERVENTIONS: Patient-specific fall risk factors per assessment: [current deficits]: complete care Assistance [level of assistance required for transfers and ambulation]: complete Supervision [direct monitoring required during toileting and ADLs]: total feed, dependent Surveillance [continuous indirect monitoring]: bed alarm, masimo Patient-specific fall prevention interventions for sensory deficits provided, if applicable: [X] N/A CARE PLAN GOAL OUTCOME EVALUATION: * Plan of Care - Zayda Matthews RN - 06/30/2022 7:22 AM EST OUTCOME EVALUATION NOTE: OUTCOME SUMMARY: Patient nonverbal, able to say some words. Unable to assess orientation level. Patient alert. VSS on RA. Fleet enema administeredx1 for discomfort related to constipation. Patient had 2 large Bms after enema, stool loose in consistency. Incontinence care provided. All scheduled medications administered, see MAR. LR 500mL/hr bolus administered for hydration. Telemetry Dc'd. Safety maintained. Patient resting between care. PLAN MOVING FORWARD: Awaiting culture results. Possible surgical intervention, Monitor CARMELLA drain, monitor labs, VS q6 while awake INDIVIDUALIZED FALL PREVENTION INTERVENTIONS: Patient-specific fall risk factors per assessment: [current deficits]: Bed rest Assistance [level of assistance required for transfers and ambulation]: 2 assist with a lift/dependant Supervision [direct monitoring required during toileting and ADLs]: Total care Surveillance [continuous indirect monitoring]: Christina, purposeful rounding * Plan of Care - Anurag Contreras RN - 06/29/2022 6:13 PM EST OUTCOME EVALUATION NOTE: OUTCOME SUMMARY: Pt remained free from falls/injury, received Mg replacement x1, remained tachycardic in low 100s, afrebile. Appears visibly comfortable in bed, intermittently nods appropriately. Received prn suppository for mother c/o constipation/decreased appetite. Mother at bedside majority of shift, requesting update from ID team on plan going forward. CARMELLA w/ 5cc serosanguinous output. PLAN MOVING FORWARD: Awaiting culture results Possible surgical intervention? Monitor drain output Trend inflammatory/infection markers INDIVIDUALIZED FALL PREVENTION INTERVENTIONS: Patient-specific fall risk factors per assessment: [current deficits]: bed bound Assistance [level of assistance required for transfers and ambulation]: complete/dependent Supervision [direct monitoring required during toileting and ADLs]: total care Surveillance [continuous indirect monitoring]: masimo, bed alarm, hourly rounding Patient-specific fall prevention interventions for sensory deficits provided, if applicable: [X] N/A CARE PLAN GOAL OUTCOME EVALUATION: * Plan of Care - Piter Magaña RN - 06/28/2022 11:54 PM EST OUTCOME EVALUATION NOTE: ?? OUTCOME SUMMARY: Patient has been sleeping intermittently throughout the night. VSS. Mom remains atthe bedside and is attentive to patient. Continues on tele. HR noted to sustain in the 120's-130's.Later returned to 90's-low 100's without intervention. Tele showed ST. All other VSS. Patient asymptomatic throughout. Droplet/contance precautions maintained. CARMELLA drain continues to bulb suction and with scant drainage. No acute issues noted @ this time. ?? PLAN MOVING FORWARD:Will continue to monitor, maintain droplet/contact precautions, monitor on tele, perform incontinence care, offer assistance, and otherwise tx as necessary/ordered. ?? INDIVIDUALIZED FALL PREVENTION INTERVENTIONS: ?? Patient-specific fall risk factors per assessment: [current deficits]: Flaccid BLLE, spasticity, generalized weakness ?? Assistance [level of assistance required for transfers and ambulation]: 2 assist, lift ?? Supervision [direct monitoring required during toileting and ADLs]: Hands on/eyes on ?? Surveillance [continuous indirect monitoring]: Bed alarm, tele, purposeful rounding ?? Patient-specific fall prevention interventions for sensory deficits provided, if applicable: [X] No ? CPG GOAL OUTCOME EVALUATION: ?? * Plan of Care - Agustin Hamm RN - 06/28/2022 3:55 PM EST OUTCOME SUMMARY: ?? Pt alert, mostly nonverbal; answering yes/no questions intermittently. VSS on RA, except BP soft at93/55 and tachy intermittently at low 100's. MD notified, 500cc LR bolus ordered and given. RecheckBP at 100/63 and 116/81, HR remain at 100's-110's, MD notified, no new orders. Remained on tele. Respiratory panel PCR ordered and obtained d/t pt coughing and had stuffy nose. Started contact anddroplet precautions. CARMELLA drain in place w/ small serosanguineous output, see I/O. New IV inserted as old IV had difficultflushing. Pt's family at bedside throughout and helped with care. Meds given per JUN. Safety maintained. No other issues. Will CTM and notify MD of any changes. ?? PLAN MOVING FORWARD: ?? Monitor VS, labs Culture pending CARMELLA drain ?? INDIVIDUALIZED FALL PREVENTION INTERVENTIONS: ?? Patient-specific fall risk factors per assessment: [current deficits]: Medical equipment, medication administration, CP ?? Assistance [level of assistance required for transfers and ambulation]: 2A w/ lift ?? Supervision [direct monitoring required during toileting and ADLs]: Hands on ?? Surveillance [continuous indirect monitoring]: Bed alarm, hourly rounding, room close to nursing station, family/caregiver at bedside ?? Patient-specific fall prevention interventions for sensory deficits provided, if applicable: [X] N/A ? CARE PLAN GOAL OUTCOME EVALUATION: ?? * Consult Note - Tonya Tee MD - 06/28/2022 11:25 AM EST Infectious Disease Reason for consult: 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 Requesting: Estevan Alfaro MD History of Present Illness: 27 year-old female with a PMH of TBI with spastic quadriplegia, CP, scoliosis, s/p PSF in 2008 and prior bilateral Gird[place] in 2010 was admitted to on 06/24 after hermother noticed she had increasing redness and tenderness over the midline surgical scar on the back. These symptoms started about 3 weeks prior to admission. The patient had been prescribed Keflex by her PCP which she took for 2-days and noted some symptom improvement. On 06/17 she was seen at [facility] due to increased back pain and received IV antibiotics (vancomycin and cefepime) for cellulitis and was also noted to have a 8x9mm subcutaneous fluid collection on US and was evaluated by orthopedics there who did not recommend aspiration. She had been discharged on oral antibiotics (cefpodoxime), however, due to ongoing symptoms she presented here. CT performed on 06/24 showed two irregular collections within the posterior subcutaneous fat of the lumbar region. The more superior collection appeared to have deep extension to the level of the L1 and L2 lamina on the left side, while the denser soft tissue collection centered about the dislocatedright iliac screw was present on prior study. On 06/25 she underwent IR guided drainage with findings of old blood from the superior collection, while the more inferior collection drained purulent material, and a drain was placed. Of note last week the patient's roommate tested positive for parainfluenza virus and according to her mother Tana is experiencing new URT symptoms over the last few days. 10-point ROS: negative other than that stated in HPI. Other Medical and Surgical History: Medications: reviewed Allergies/SE to antibiotics: none Family History: negative for recurrent infections or immunocompromised conditions Social History: noncontributory Objective: BP 99/63 (BP Location (NBP): Right arm, Patient Position: Lying) Pulse 91 Temp 36.8 ??C (98.2 ??F) (Oral) Resp 16 Ht 157.5 cm (5' 2) Wt 49 kg (108 lb) SpO2 99% BMI 19.75 kg/m?? General: no acute distress HEENT: oropharynx without exudates or erythema, neck supple CV: regular rate and rhythm, no obvious murmurs Resp: clear to auscultation bilaterally; no wheezing, crackles, or rhonchi Abd: soft, non-distended, non-tender on palpation Ext: warm and well-perfused, no lower extremity edema Skin: no visible rashes Pertinent labs, microbiology, imaging and procedures were reviewed. Labs: 06/28 WBC 5.6 (N 54%) Hb 9.9 Plt 371 Cr 0.27 CRP 53 (prior on 06/24 96) Micro: 06/25 blood cultures - no growth 06/25 spinal fluid collection cultures - gram stain many neutrophils, no microorganisms, culture withno growth to date EKG/Echo - reviewed Imaging - reviewed 06/24 CT LS w/contrast - There are 2 irregular collections within the posterior subcutaneous fat of the lumbar region. The more superior collection appears to have deep extension to the level of the L1 and L2 lamina on the left side, but evaluation is marred by artifact. Findings are nonspecific, but infected collection is a possibility. Denser soft tissue collection centered about the dislocated right iliac screw was present on prior study but better visualized on current study. This may represent a chronic organized hematoma Procedures - reviewed 06/25 IR guided drainage - Superior collection appears to be old blood. The more inferior collection drained purulent material, and a drain was placed Impression: 27 year-old female with a PMH of TBI with spastic quadriplegia, CP, scoliosis, s/p PSF in 2008 and prior bilateral Girdlestone in 2010 was admitted to on 06/24 after her mother noticed she had increasing redness and tenderness over the midline surgical scar on the back. These symptoms started about 3 weeks prior to admission (she was on keflex --> cefepime + vancomycin --> cefpodoxime before presentation here). CT performed on 06/24 showed two irregular collections within the posterior subcutaneous fat of the lumbar region. The more superior collection appeared to have deep extension to the level of the L1 and L2 lamina on the left side, while the denser soft tissue collection centered about the dislocated right iliac screw was present on prior study. On 06/25 she underwent IR guideddrainage with findings of old blood from the superior collection, while the more inferior collection drained purulent material, and a drain was placed. Cultures with no growth to date which is not entirely surprising since she was on antibiotics and also because the this was a slow to progress infection that raises suspicion for an indolent organism such as C.acne. We will wait another day for cultures to mature, if they remain unrevealing operative cultures may be needed to help make a diagnosis. If this is not feasible we may need to treat empirically. Given proximity to hardware a long course of treatment will likely be required. Recommendations: -Please check respiratory viral panel -Follow OR cultures -Continue to monitor off antibiotics for now Recommendations shared with primary team. Thank you for this consult, we will follow with you. Please call with questions, pager [phone]. Discussed with attending, Dr. Brown Tee MD Infectious Disease Fellow 06/28/22 Associated attestation - Jamar Dasilva MD - 06/29/2022 8:23 AM EST Attending Addendum: I have seen and examined the patient, reviewed the data and agree with the note by Dr. Tee. Will need to engage spine surgery. If cultures are positive, likely needs debridement. If negative, may need more tissue. It is possible that her prior antibiotics at [facility] have made cultures less sensitive. * Plan of Care - Piter Magaña RN - 06/28/2022 5:15 AM EST OUTCOME EVALUATION NOTE: OUTCOME SUMMARY: Patient has been sleeping intermittently throughout the night. VSS. Mom remains atthe bedside and is attentive to patient. Continues on tele. HR noted to sustain in the 120's-130's.Tele showed ST. All other VSS. Patient asymptomatic. MD ([id number]) made aware and ordered 500 ml bolus of LR. HR noted to improve with rates in the 90's to low 100's. CARMELLA drain continues to bulb suction and with scant drainage. No acute issues noted @ this time. PLAN MOVING FORWARD:Will continue to monitor, monitor on tele, perform incontinence care, offer assistance, and otherwise tx as necessary/ordered. INDIVIDUALIZED FALL PREVENTION INTERVENTIONS: Patient-specific fall risk factors per assessment: [current deficits]: Flaccid BLLE, spasticity, generalized weakness Assistance [level of assistance required for transfers and ambulation]: 2 assist, lift Supervision [direct monitoring required during toileting and ADLs]: Hands on/eyes on Surveillance [continuous indirect monitoring]: Bed alarm, tele, purposeful rounding Patient-specific fall prevention interventions for sensory deficits provided, if applicable: [X] No CPG GOAL OUTCOME EVALUATION: * Plan of Care - Agustin Hamm RN - 06/27/2022 1:05 PM EST OUTCOME EVALUATION NOTE: OUTCOME SUMMARY: Pt alert, mostly nonverbal; answering yes/no questions intermittently. VSS on RA, except BP soft at92/59 and tachy intermittently at high 90's to low 100's, pt asymptomatic, MD notified, no new orders. Remained on tele, no tele events. Caregiver at bedside throughout. CARMELLA drain with small serosanguineous output, 5mL throughout shift. Meds given per JUN. Safety maintained. No other issues. Will CTM and notify MD of any changes. PLAN MOVING FORWARD: Monitor VS, labs CARMELLA drain IV abx? INDIVIDUALIZED FALL PREVENTION INTERVENTIONS: Patient-specific fall risk factors per assessment: [current deficits]: Medical equipment, medication administration, CP Assistance [level of assistance required for transfers and ambulation]: 2A w/ lift Supervision [direct monitoring required during toileting and ADLs]: Hands on Surveillance [continuous indirect monitoring]: Bed alarm, hourly rounding, room close to nursing station, family/caregiver at bedside Patient-specific fall prevention interventions for sensory deficits provided, if applicable: [X] N/A CARE PLAN GOAL OUTCOME EVALUATION: * Plan of Care - Flori Villalobos RN - 06/26/2022 6:42 AM EST OUTCOME EVALUATION NOTE: ?? OUTCOME SUMMARY: Tana appeared to be sleeping for majority of shift, vitals stable. Did not appear to be in pain, caregiver at bedside overnight who agreed that Tana appeared comfortable. Took meds with pudding without difficulty. CARMELLA with scant drainage overnight. Nursing staff will continue to monitor and provide care. PLAN MOVING FORWARD: Pain control, IV abx?, drain o/p INDIVIDUALIZED FALL PREVENTION INTERVENTIONS: Patient-specific fall risk factors per assessment: [current deficits]: IV sites, non verbal, WC bound, poor insight Assistance [level of assistance required for transfers and ambulation]: 1A to turn in bed Supervision [direct monitoring required during toileting and ADLs]: Eyes on, hands on Surveillance [continuous indirect monitoring]: Bed alarm, keylao, caregiver @ bedside * Initial Assessments - Alicja Franklin RN - 06/25/2022 11:11 AM ESTSummary: CM Initial Assessment Office of Care Management Initial Assessment Alicja Franklin RN reviewed record and discussed patient with Care Team. Source of Information: Team, bedside nurse, medical record, and Caregiver (Fannie Phil, caregiver.) Introduced self/reviewed role; services accepted. Reason for Hospitalization: Per H&P: 27-year-old female, PMH of TBI with spastic quadriplegia, CP, s/p intrathecal baclofen pump and removal complicated by site infection, bacteremia, nonverbal, scoliosis, s/p PSF(02/2009), prior bilateral Girdlestone's-2010 who has had increasing redness and tenderness over the midline surgical scar on the back since the last 3 weeks treated as cellulitis asan outpatient with Keflex, followed by an inpatient admission for 3 days where a fluid collection was seen(not drained) and subsequently referred to for further management. Covid Vaccination Status: 1st, 2nd & booster Last COVID test: Past medical History: No past medical history on file. Hospitalizations Within the Past 30 Days: no previous admission in last 30 days Current Decision-Making Capacity: Guardian Name(s) of Court Appointed Guardian(s): Anderson Thorpe mother Court Appointed Guardian(s) Contact Information: Guardianship paperwork on file?: Yes Advance Care Planning: Attempt Cardiopulmonary Resuscitation - Inpatient <no information> -Advanced Directive: Other (Guardianship) Current Coping/Education/Information Needs: Caregiver is understanding about the plan of care. Current Functional Ability: Completely Dependent Functional Status [...] Environment: Others in the home: roomate(s), other (see comments) (caregiver, Fannie). Current Living Arrangements: home/apartment/condo. Accessibility Concerns:ramp to enter the home.. Resource / Environmental Concerns: Resource/Environmental Concerns: none Current DME: hospital bed, lift device Home Address confirmed as: [address] [facility] [address] Social & Family Supports: All names listed below confirmed with patient as current and correct Extended Emergency Contact Information [facility] Relation: Mother Secondary [facility] Mobile Relation: Step parent Current Care Provided by: other (see comments) (Caregiver Fannie or Di) Provides Primary Care For: no one, unable/limited ability to care for self Caregiver if needed: other (see comments) (has 24 hr care) Quality of Family relationships: involved, supportive Community Resources being provided currently: none Behavioral Health History: none noted Substance Use/Abuse listed: Social History Tobacco Use Smoking Status Never Smokeless Tobacco Never Tobacco Comments NO SMOKERS IN THE HOME In the past year have you used an illegal drug or used a prescription medication for non-medical reasons?: No 0 No problems reported 1-2 Low level 3-5 Moderate level 6-8 Substantial level 9- 10 Severe level In the past year have you had 4 or more drinks a day containing alcohol?: No 0 to 7 points: Low risk 8 to 15 points: Medium risk 16 to 19 points: High risk 20 to 40 points: Addiction likely Other Pertinent/Service Specific Information: none Health/Prescription Coverage: Primary Insurance: [place] Pay[place] / Plan: [place] / Product Type: *No Product type* / Secondary Insurance: N/A Prescription Coverage: Yes Preferred Pharmacy: [facility] [address] [place] [address] [address] [place] [id number] [facility] Home Delivery - [facility] [address] [facility] [address] [facility] [id number] - [place], [place] - [address] [facility] [address] [facility] [address] Status: Patient is a : No Primary Care Provider confirmed: Lorna Bal, GEODETIC ENGINEER [phone] Patient/Caregiver Goals of Treatment: Caregiver anticipates return home upon discharge. Potential Needs for Transition of Care: none Agency Referrals: Not Applicable Transportation: no concerns Transportation Anticipated: family or friend will provide Concerns to be Addressed: discharge planning Assessment: Patient is admitted to Medicine service for 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. Plan: Pt lives with a dual home provider. Pt has 24 hour care and all equipment needed for care. Dependent on the plan pt may or may not need HH services. A member of the Care Management team will continue to monitor progress, follow for continuity of care and assist with transition of care planning. Alicja Franklin RN, BSN technology professional Office of Care Management Pager: [phone] * Consult Note - Piter Palmer MD - 06/24/2022 11:04 PM EST Images from the original note were not included. Orthopaedic Spine Consult Note Consult Received: 6PM Patient Seen: 7PM Attending: Dr. Harrison Tana S Shelton is a 27 y.o. female who presents to see us in consultation today at the request of Eddi Vázquez MD for lumbar erythema. Chief Complaint: lumbar erythema, fluid collection History of Present Illness: Tana Shelton is a 27 y.o. female with CP/spastic quadriplegia and history of spinal fusion for scoliosis (Dr. Oliver 2008), bilateral Girdlestone procedures, removal of a baclofen pump in 2014 complicated by infection requiring multiple washouts and prolonged antibiotics since resolved, who presents with 1 week of lumbar erythema. Prior to this episode erythema, the caretakers report the patient has been doing well and has not had an issue with her back in years. Patient was originally seen at [facility] where an ultrasound performed demonstrating a small fluid collection in the subcutaneous tissue. Patient was admitted for 2 days at [facility] for IV antibiotics and then ultimately transitioned to p.o. antibiotics on discharge. Patient presents to the [facility] ED today for persistent erythema despite antibiotic regimen. Patient is nonverbal and nonambulatory. Patient is accompanied by some of her caretakers who note that Tana seems to be more uncomfortable with turns for hygiene. Currently, patient is afebrile withstable vital signs. A CT of the lumbar spine was obtained with contrast which was notable for 2 fluid collections in the subcutaneous tissues of the lumbar spine for which orthopedic surgery was consulted. AFVSS, WBC 6.8, ESR >119, CRP 96.9 Past Medical and Surgical History: Patient Active [...] of elbow M24.529 ??? 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 M46.20 No past medical history on file. Past Surgical History: Procedure Laterality Date ??? BACK SURGERY scoliosis repair ??? HIP OSTEOTOMY bilateral ??? PRO APPLY OF HIP CASTS, TWO LEGS 08/15/2010 CAST APPLICATION, HIP SPICA, BOTH LEGS performed by BARRERA OLIVER at [facility] MAIN OR ? ? PRO I&D, POST SPINE, LUMB/SACR/LUMBOSAC N/A 05/20/2014 @I & D, OPEN, DEEP ABSCESS, LUMBAR, SACRAL, LUMBOSACRAL performed by Freddy Isbell MD at [facility] MAIN OR ? ? PRO I&D, POST SPINE, LUMB/SACR/LUMBOSAC N/A 05/26/2014 @I & D, OPEN, DEEP ABSCESS, LUMBAR, SACRAL, LUMBOSACRAL performed by Freddy Isbell MD at [facility] MAIN OR ??? PRO IMPACT TOOTH REMOV COMP BONY N/A 06/14/2018 SURGICAL EXTRACTIONS, REMOVAL OF IMPACTED TOOTH, COMPLETELY BONY (WRVU 1.93) performed by Keith Cotton MD at [facility] OSC ??? PRO OSTEOTOMY FEMUR SHAFT/SUPRACONDY 08/15/2010 ??OSTEOTOMY, FEMUR SHAFT OR SUPRACONDYLAR W/O FIXATION performed by BARRERA OLIVER at [facility] MAIN OR ??? PRO RECONSTRUC HIP SOCKET, RESEC FEM HEAD 08/15/2010 ??ACETABULOPLASTY (GIRDLESTONE), RESECTION FEMORAL HEAD, BILATERAL performed by BARRERA OLIVER [facility] MAIN OR ??? PRO REMOVAL DEEP IMPLANT 08/15/2010 REMOVAL IMPLANT, DEEP, BRUNO performed by BARRERA OLIVER at [facility] MAIN OR ??? PRO REMOVAL ERUPTED TOOTH WITH ELEVATION OF MUCOPERIOSTEAL FLAP N/A 06/14/2018 SURGICAL EXTRACTIONS REQUIRING ELEVATION OF MUCOPERIOSTEAL FLAP AND REMOVAL OF BONE OR SECTION OF TOOTH (WRVU 1.09) performed by Keith Cotton MD at [facility] OSC ??? PRO REMOVE INFUSN DEVICE/PUMP N/A 05/11/2014 REMOVAL OF SPINE INFUSION PUMP performed by Jamaal Samuel MD at [facility] MAIN OR ??? PRO REMOVE SPINAL CANAL CATHETER N/A 05/11/2014 REMOVAL OF INTRATHECAL OR EPIDURAL CATHETER performed by Jamaal Samuel MD at [facility] OR ??? PRO REPR, DURAL/CSF LEAK, NOT REQ LAMINECTOMY N/A 05/20/2014 @REPAIR DURAL\CSF LEAK,NOT REQUIRING LAMINECTOMY performed by Freddy Isbell MD at [facility] OR Home Medications: (Not in a hospital admission) Allergies: Allergies Allergen Reactions ??? Fluoxetine Other (See Comments) HIVES, HEART RACES ??? Tegaderm [Transparent Dressings] Itching and Dermatitis Please use [id number] ??? Penicillins Current Medications: No current facility-administered medications on file prior to encounter. Current Outpatient Medications on File Prior to Encounter Medication Sig Dispense Refill ??? senna (Senokot) 8.6 mg Tablet Take 2 tablets by mouth nightly. ??? cefPODOXime (Vantin) 200 mg Tablet Take 200 mg by mouth 2 times daily. ??? nystatin (MYCOSTATIN) 100,000 unit/gram Powder Apply 1 each topically 2 times daily. ??? baclofen (Lioresal) 10 mg Tablet Take 10 mg by mouth 2 times daily. ??? multivitamin (THERAGRAN) Tablet Take 1 tablet by mouth daily. ??? [DISCONTINUED] baclofen (LIORESAL) 10 mg Tablet Take 1 tablet by mouth 2 times daily. 180 tablet 0 ??? POLYETHYLENE GLYCOL 3350 (MIRALAX ORAL) Take 17 g by mouth as needed. ??? [DISCONTINUED] ketoconazole (NIZORAL) 2 % Cream Ketoconazole cream mixed 1:1 with Rx: Hydrocortisone cream twice a day when flaring or before flares up to 7 days 30 g 1 ??? [DISCONTINUED] hydrocortisone 2.5 % Cream Hydrocortisone 2.5% cream mixed 1:1 with Rx: Ketoconazole cream twice a day when flaring or before flares up to 7 days 30 g 1 ??? [DISCONTINUED] Acetaminophen 500 mg/15 mL Liquid Take 15 mLs by mouth every 4 hours as needed. 1 Bottle 0 ??? [DISCONTINUED] ibuprofen (ADVIL;MOTRIN) 100 mg/5 mL Suspension Take 13.6 mLs by mouth every 4 hours as needed for Pain or Fever. 1 Bottle 0 ??? [DISCONTINUED] ammonium lactate (AMLACTIN) 12 % Cream Apply 2-3 times daily to affected area onarms and legs. 385 g 0 Family History: Non-contributory Social History: Living situation: Resides with family Review of Systems: As per HPI, otherwise negative Objective: Temp: [36.1 ??C (96.9 ??F)] Heart Rate: [94-96] Resp: [18] BP: (93-100)/(66-81) SpO2: [99 %-100 %] Heart Rate from SpO2: -- Gen: NAD, awake, alert, appropriate, limited verbalization CV: RRR assessed peripherally Pulm: Non-labored breathing on RA Focused Spine Exam: Neck: No apparent pain with flexion or extension. No cervical spine bony tenderness, crepitance, orstepoff. Back: Well healed surgical incision. Mild erythema in upper lumbar region. no fluctuance. Appears to be nontender to palpation throughout spine Significant contractures and stiffness of bilateral shoulders and elbows. Significant stiffness of bilateral hips and knees. Ankles hyper dorsiflexed. Legs with significant external rotation. Motor: Patient has spastic quadriplegia. No motor function of right upper and bilateral lower extremities.Patient demonstrates purposeful gross movements of left hand and is able to grasp on command. Sensory: Appears to respond to light touch stimulus in all four extremities but does not provide reliable sensory exam. Reflexes: R L Biceps Not tested Not tested Franz Not tested Not tested Patellar Not tested Not tested Ankle jerk Not tested Not tested Plantar Not tested Not tested Clonus 6 beats 6 beats Sacral Reflexes: Not tested Imaging: CT Lumbar spine (06/24/22): Personally reviewed CT of lumbar spine demonstrating 2 distinct fluid collections. Inferiorly, there is a 5X3X 6 cm mildly rim-enhancing fluid collection extending close to the skin surface. There yanely second fluid collection superiorly at the level of T12-L2 that extends down to the L1 and L2 lamina with mild rim enhancement. These 2 fluid collections may communicate. Evidence of displaced right iliac screw present from prior studies. Assessment/Plan: 27 y.o. female with complex medical history including CP/spastic quadriplegia, spine fusion for scoliosis (2008) who presents with lumbar erythema evidence of fluid collections on advanced imaging. Patient appears to be at her baseline neurologically per history supplemented by her caretakers. Patient remains afebrile and hemodynamically stable however does exhibit elevated inflammatory markers. Given these findings, these fluid collections may represent an infectious process. Unable to determine if these fluid collections definitively communicate with the implanted hardware. Regarding her infectious history, patient had a remote history of infection after the baclofen pumpwas removed in 2014 which required multiple washouts and prolonged antibiotics but was believed to be resolved as of 2014 with several years of no issues. Regarding her current clinical situation, the etiology of this possible infection remains unclear. Patient does not have any overlying ulcers orwounds. Recommend admission to hospital medicine. Recommend aspiration of these fluid collections for culture directed antibiotic therapy if infected. No acute surgical intervention indicated at this time. - Activity: As tolerated - DVT prophylaxis: Per primary recommend Lovenox - Antibiotics: Hold as long as hemodynamically stable until aspiration to improve yield - Diet: N.p.o. after midnight Piter Palmer MD Orthopaedic Surgery, [id number] Associated attestation - Joe Harrison MD - 06/25/2022 3:24 PM EST Complex medical patient. H/o Spinal fusion thoracic to pelvis. Presents with subcutaneous collection based on CT and ultrasound. Erythema. On prior abx. ? Extendsdeep to lamina L1. CT hard to read due to artifact. Agree with plan on aspiration of as much of the fluid as possible. Try to avoid surgical intervetion if possible. If surgical intervention may require plastic surgeryfor closure to possible poor wound healing. Joe Harrison MD [facility] Spine Surgery - Department of Orthopaedic Surgery Chairman And Ceo - Department of Orthopedic Surgery / Academics and Research Sanitarian Aide Professor - [facility] 06/25/2022 * Consult Note - Kelvin Munson, [facility] - 06/24/2022 9:44 PM EST TelePharmacy Home Medication List Update for Medication Reconciliation 06/24/22 9:45 PM Tana Shelton 1995 Allergies Allergen Reactions ??? Fluoxetine Other (See Comments) HIVES, HEART RACES ??? Tegaderm [Transparent Dressings] Itching and Dermatitis Please use [id number] ??? Penicillins ??? Person Interviewed: adult corrugator ??? Quality of Interview/accuracy of medication list: good ??? Sources used to compile medication list: [x] Epic medication list [x] SureScripts [] PCP/Specialist list [] Retail pharmacy [] Patient list [] MAR [] Other ??? Changes made to home medication list: o Additions: - Nystatin 100,000 unit/gram powder topically to the affected area(s) BID - Cefpodoxime 200 mg BID - Senna 8.6 mg take 2 tablets nightly o Deletions: - Acetaminophen 500 mg/15 mL 15 mLs Q4H PRN - Ammonium lactate 12% cream - Hydrocortisone 2.5% cream - Ibuprofen 100 mg/5 mL 13.6 mLs Q4H PRN - Ketoconazole 2% cream o Changes: - none ??? Additional Notes: o Pt was prescribed cefpodoxime 200 mg BID on 06/19/22 x 8 ds, and prescribed cephalexin 500 mg BID on 06/12/22 x 10 ds previously. ??? Recommended changes: o none The home medication list is now updated to the best of my knowledge and is ready to be reconciled by the provider. Please contact the TelePharmacy Medication Reconciliation Pharmacist at for any questions. Kelvin Munson RPH * ED Triage - Hollie Chand RN - 06/24/2022 1:19 PM EST HPI (Adult) Stated Reason for Visit: Pt. brought in by caregivers for surgical wound evaluation. Pt. had spinalsurgery for scoliosis and was admitted to hospital on June 17. Pt. sent home on antibiotics, but sent here today by MD for concern due to redness and swollen spot near surgical site. Pt. is nonverbal, in wheelchair, acting baseline per caregivers, but has vomited intermittently. Pt. is afebrile upon arrival to ED History Obtained From: other (see comments) (caregivers) documented in this encounter Plan of Treatment Upcoming Encounters Date Type Department Care Team (Late st Contact Info) Description 11/19/2023 2:30 PM EDT TH Visit (TeleHealth) [place] [id number] Lilli Joy APRN [facility] [place] [address] 11/30/2023 12:50 PM EDT Appointment [place] [address] 12/03/2023 12:30 PM EDT Office Visit [place] [address] Hollie Ambriz MD [facility] INFECTIOUS [place] [address] Scheduled Referrals Name Type Priority Associated Diagnoses Orde r Schedule Referral to Home Health Outpatient Referral Routine Bacteremia Ordered: 07/09/2022 documented as of this encounter Procedures Procedure Name Priority Date/Time Associated Diagnosis Comments HEMOGRAM Routine 07/09/2022 3:55 AM EDT DIFFERENTIAL, AUTOMATED Routine 07/09/2022 3:55 AM EDT HC CBC,PLT & AUTO DIFF Routine 3:55 AM EDT BASIC METABOLIC PANEL (NON-FASTING) Routine 07/09/2022 3:55 AM EDT IR SITE CHECK IN RECOVERY ROOM Routine 07/08/2022 10:29 AM EDT HC C-REACTIVE PROTEIN Routine 07/08/2022 5:48 AM EDT HEMOGRAM Routine 07/08/2022 5:48 AM EDT DIFFERENTIAL, AUTOMATED Routine 07/08/2022 5:48 AM EDT HC IRON BINDING CAPACITY Routine 07/08/2022 5:48 AM EDT HC CBC,PLT & AUTO DIFF Routine 5:48 AM EDT HC FERRITIN, SERUM Routine 07/08/2022 5: 48 AM EDT HC CORTISOL, BLOOD Routine 07/08/2022 5: 48 AM EDT BASIC METABOLIC PANEL (NON-FASTING) Routine 07/08/2022 5:48 AM EDT EKG 12-LEAD Routine 07/07/2022 11:44 AM EDT Bacteremia BLOOD GAS VENOUS ([facility]) Routine 7:10 AM EDT SCAN, PERIPHERAL BLOOD Routine 3:41 AM EDT HEMOGRAM Routine 07/07/2022 3:41 AM EDT DIFFERENTIAL, AUTOMATED Routine 07/07/2022 3:41 AM EDT HC BLOOD CULTURE- Routine 07/07/2022 3:4 1 AM EDT HC CBC,PLT & AUTO DIFF Routine 3:41 AM EDT HC VENIPUNCTURE Routine 07/07/2022 3:41 AM EDT BASIC METABOLIC PANEL (NON-FASTING) Routine 07/07/2022 3:41 AM EDT HC HEMOGLOBIN, BLOOD STAT 07/06/2022 6:40 PM EDT HC VENIPUNCTURE STAT 07/06/2022 6:40 PM EDT POCT GLUCOSE Routine 07/06/2022 5:36 PM EDT CRP, ACUTE INFLAMMATION Routine 07/06/2022 6:21 AM EDT LAVENDER TUBE HOLD Routine 07/06/2022 6: 21 AM EDT HC VENIPUNCTURE Routine 07/06/2022 6:21 AM EDT HEPATIC FUNCTION PANEL Routine 6:21 AM EDT BASIC METABOLIC PANEL (NON-FASTING) Routine 07/06/2022 6:[address] ABDOMEN AND PELVIS W CONTRAST Routine 07/05/2022 4:07 PM EST BILIRUBIN, DIRECT Routine 07/05/2022 5:3 1 AM EST SCAN, PERIPHERAL BLOOD Routine 5:31 AM EST HEMOGRAM Routine 07/05/2022 5:31 AM EST DIFFERENTIAL, AUTOMATED Routine 07/05/2022 5:31 AM EST HC VENIPUNCTURE Routine 07/05/2022 5:31 AM EST COMPREHENSIVE METABOLIC PANEL (NON-FASTING) Routine 07/05/2022 5:31 AM EST IR ALL DRAINAGE PROCEDURES Routine 07/04/2022 4:14 PM EST HEMOGRAM Routine 07/04/2022 6:07 AM EST DIFFERENTIAL, AUTOMATED Routine 07/04/2022 6:07 AM EST HC L-LACTATE Timed 07/04/2022 6:07 AM EST HC VENIPUNCTURE Routine 07/04/2022 6:07 AM EST BASIC METABOLIC PANEL (NON-FASTING) Routine 07/04/2022 6:07 AM EST URINALYSIS MICROSCOPIC EXAM Routine 07/04/2022 3:05 AM EST URINALYSIS WITH REFLEX CULTURE Routine 07/04/2022 3:05 AM EST HC L-LACTATE STAT 07/04/2022 12:50 AM EST EKG 12-LEAD STAT 07/04/2022 12:16 AM EST 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 HC C-REACTIVE PROTEIN Timed 07/03/2022 11:05 PM EST LAVENDER TUBE HOLD Timed 07/03/2022 11 :05 PM EST HC VENIPUNCTURE STAT 07/03/2022 11:05 PM EST HC VENIPUNCTURE STAT 07/03/2022 10:[address] LUMBAR SPINE WITH CONTRAST Routine 07/03/2022 5:52 PM EST HEMOGRAM Routine 07/03/2022 10:08 AM EST DIFFERENTIAL, AUTOMATED Routine 07/03/2022 10:08 AM EST HC ESR-SEDIMENTATION RATE, BLOOD Routine 07/03/2022 10:08 AM EST HC VENIPUNCTURE Routine 07/03/2022 10:08 AM EST XR CHEST ONE VIEW Routine 07/02/2022 5:0 4 PM EST URINALYSIS MICROSCOPIC EXAM Routine 07/02/2022 3:35 PM EST URINALYSIS WITH REFLEX CULTURE Routine 07/02/2022 3:35 PM EST HC THYROID STIMULATING HORMONE, SERUM Routine 07/02/2022 6:15 AM EST HEMOGRAM Routine 07/02/2022 6:15 AM EST DIFFERENTIAL, AUTOMATED Routine 07/02/2022 6:15 AM EST HC VENIPUNCTURE Routine 07/02/2022 6:15 AM EST HC CBC,PLT & AUTO DIFF Routine 6:15 AM EST BASIC METABOLIC PANEL (NON-FASTING) Routine 07/02/2022 6:15 AM EST HC VENIPUNCTURE STAT 07/01/2022 8:21 PM EST HC VENIPUNCTURE STAT 07/01/2022 6:14 PM EST HC MAGNESIUM, SERUM Routine 07/01/2022 6 :14 PM EST IR DRAIN CHECK/CHANGE/REMOVE Routine 07/01/2022 3:35 PM EST EKG 12-LEAD Routine 07/01/2022 2:17 PM EST Tachycardia HC C-REACTIVE PROTEIN Routine 07/01/2022 5:50 AM EST BMP W/FASTING GLUCOSE Routine 07/01/2022 5:50 AM EST HEMOGRAM Routine 07/01/2022 5:50 AM EST DIFFERENTIAL, AUTOMATED Routine 07/01/2022 5:50 AM EST HC ESR-SEDIMENTATION RATE, BLOOD Routine 07/01/2022 5:50 AM EST HC CBC,PLT & AUTO DIFF Routine 5:50 AM EST BMP W/FASTING GLUCOSE Routine 06/30/2022 4:29 AM EST HEMOGRAM Routine 06/30/2022 4:29 AM EST DIFFERENTIAL, AUTOMATED Routine 06/30/2022 4:29 AM EST HC CBC,PLT & AUTO DIFF Routine 4:29 AM EST EKG 12-LEAD Routine 06/29/2022 8:55 AM EST Tachycardia BMP W/FASTING GLUCOSE Routine 06/29/2022 5:58 AM EST HEMOGRAM Routine 06/29/2022 5:58 AM EST DIFFERENTIAL, AUTOMATED Routine 06/29/2022 5:58 AM EST HC CBC,PLT & AUTO DIFF Routine 5:58 AM EST TSH Routine 06/29/2022 5:58 AM EST MAGNESIUM Routine 06/29/2022 5:58 AM EST HC RESPIRATORY VIRUS PANEL BY PCR Routine 06/28/2022 2:58 PM EST HC C-REACTIVE PROTEIN Routine 06/28/2022 5:38 AM EST HEMOGRAM Routine 06/28/2022 5:38 AM EST DIFFERENTIAL, AUTOMATED Routine 06/28/2022 5:38 AM EST HC ESR-SEDIMENTATION RATE, BLOOD Routine 06/28/2022 5:38 AM EST HC CBC,PLT & AUTO DIFF Routine 5:38 AM EST HC MAGNESIUM, SERUM Routine 06/28/2022 5 :38 AM EST BASIC METABOLIC PANEL (NON-FASTING) Routine 06/28/2022 5:38 AM EST HEMOGRAM Routine 06/27/2022 5:58 AM EST DIFFERENTIAL, AUTOMATED Routine 06/27/2022 5:58 AM EST HC VENIPUNCTURE Routine 06/27/2022 5:58 AM EST BASIC METABOLIC PANEL (NON-FASTING) Routine 06/27/2022 5:58 AM EST BLOOD GAS VENOUS ([facility]) STAT 9:01 PM EST EKG 12-LEAD STAT 06/26/2022 8:46 PM EST 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 HEMOGRAM Routine 06/26/2022 5:38 AM EST DIFFERENTIAL, AUTOMATED Routine 06/26/2022 5:38 AM EST HC CBC,PLT & AUTO DIFF Routine 3 5:38 AM EST BASIC METABOLIC PANEL (NON-FASTING) Routine 06/26/2022 5:38 AM EST IR ALL DRAINAGE PROCEDURES Routine 06/25/2022 4:45 PM EST ANAEROBIC CULTURE Routine 06/25/2022 3:1 2 PM EST HC BODY FLUID CULTURE Routine 06/25/2022 3:12 PM EST BODY FLUID CULTURE, AEROBIC Routine 06/25/2022 3:12 PM EST ANAEROBIC CULTURE Routine 06/25/2022 3:1 1 PM EST HC BODY FLUID CULTURE Routine 06/25/2022 3:11 PM EST BODY FLUID CULTURE, AEROBIC Routine 06/25/2022 3:11 PM EST HC BLOOD CULTURE- Routine 06/25/2022 8:5 5 AM EST HC BLOOD CULTURE- Routine 06/25/2022 8:5 5 AM EST HEMOGRAM Routine 06/25/2022 2:20 AM EST DIFFERENTIAL, AUTOMATED Routine 06/25/2022 2:20 AM EST HC CBC,PLT & AUTO DIFF Routine 2:20 AM EST BASIC METABOLIC PANEL (NON-FASTING) Routine 06/25/2022 2:[address] LUMBAR SPINE WITH CONTRAST STAT 06/24/2022 6:27 PM EST HC C-REACTIVE PROTEIN STAT 06/24/2022 4:23 PM EST HEMOGRAM STAT 06/24/2022 4:23 PM EST DIFFERENTIAL, AUTOMATED STAT 06/24/2022 4:23 PM EST HC ESR-SEDIMENTATION RATE, BLOOD STAT 06/24/2022 4:23 PM EST HC CBC,PLT & AUTO DIFF STAT 4:23 PM EST BASIC METABOLIC PANEL (NON-FASTING) STAT 06/24/2022 4:23 PM EST documented in this encounter Results * (ABNORMAL) Differential, Automated (07/09/2022 3:55 AM EDT) Neutrophils % 51.7 % [facility] Neutr Abs (ANC) 3.50 1.70 - 6.10 x10(3)/[facility] Lymphocytes % 39.1 % [facility] Lymphocytes Abs 2.6 0.9 - 3.2 x10(3)/[facility] Monocytes % 5.9 % [facility] Monocyte Abs 0.4 0.3 - 0.9 x10(3)/[facility] [facility] Eosinophils % 1.5 % [facility] Eosinophils Abs 0.1 0.0 - 0.4 x10(3)/[facility] Basophils % 0.6 % [facility] Basophils Abs 0.0 0.0 - 0.1 x10(3)/[facility] [place] Immature Gran % 1.20 % [facility] Comment: Immature granulocytes(IG's)percentage and absolute count will include metamyelocytes, myelocytes, and promyelocytes. Blood smears from CBCs yielding IG's will be scanned manually for concordance. If this scan disagrees with the automated IG or if promyelocytes are noted, a manual differential will be performed. Debora Gran Abs 0.08(H) 0.00 - 0.04 x10(3)/[facility] Blood 07/09/2022 3:55 AM EDT 07/09/2022 4:02 AM EDT Narrative Resulting Agency Comment Spec In Lab Hollie Perez MD HEMATOLOGY ORDERABL ES [facility] [place] [address] * (ABNORMAL) Hemogram (07/09/2022 3:55 AM EDT) WBC 6.8 4.0 - 9.5 x10(3)/[facility] RBC 3.54(L) 4.00 - 5.21 x10(6)/[facility] Hemoglobin 8.8(L) 11.7 - 15.5 g/dL [facility] Hematocrit 28.1(L) 35.7 - 45.8 % [facility] MCV 79.4(L) 82.6 - 94.4 fL [facility] MCH 24.9(L) 27.1 - 32.0 pg [facility] MCHC 31.3(L) 31.7 - 35.0 g/dL [facility] Platelets 386(H) 145 - 357 x10(3)/[facility] LABORATORY RDWSD 57.2(H) 37.0 - 46.0 fL [facility] RDWCV 20.9(H) 11.5 - 14.1 % [facility] MPV 9.4 7.6 - 12.9 [facility] LAB[facility]ATORY nRBC % Auto 0.0 % [facility] nRBC Abs Auto 0.000 0.000 - 0.000 x10(3)/[facility] LABORAT[facility] Blood 07/09/2022 3:55 AM EDT 07/09/2022 4:02 AM EDT Narrative Resulting Agency Comment Spec In Lab Hollie Perez MD HEMATOLOGY ORDERABL ES [facility] [place] [place] [address] * (ABNORMAL) Basic Metabolic Panel (non-fasting) (07/09/2022 3:55 AM EDT) Glucose Lvl 101 65 - 199 mg/dL [facility] Comment:Diabetes: >=200 mg/d L plus symptoms BUN 8 8 - 18 mg/dL [facility] Creatinine 0.26(L) 0.70 - 1.20 mg/dL [facility] Sodium 139 135 - 145 mmol/L [facility] Potassium 4.2 3.5 - 5.0 mmol/L [facility] Comment: Please note: ??Patients with WBC >100,000 may have falsely elevated Potassium levels. ??For accurate Potassium quantification in these patients send serum separator tube (gold top) for subsequent determinations. ??Contact the Clinical Chemistry Laboratory if there are any questions. Chloride 104 98 - 107 mmol/L [facility] CO2 23 22 - 31 mmol/L [facility] Anion Gap 12 5 - 15 mmol/L [facility] Calcium 9.1 8.5 - 10.5 mg/dL [facility] Estimated GFR 152 >=60 mL/min/1. 73 m?? [facility] Comment: This patient's estimated GFR [...] and symptoms in addition to eGFR. Blood 07/09/2022 3:55 AM EDT 07/09/2022 4:02 AM EDT Narrative Resulting Agency Comment Spec In Lab Hollie Perez MD CHEMISTRY ORDERABLE S [facility] [place] [place] [address] * IR Site Check In Recovery Room (07/08/2022 10:29 AM EDT) Narrative Dicom, Auditing User - 07/08/2022 10:29 AM EDT This exam is auto-finalizing. No interpretation was done. Hollie Perez MD IMG IR ORDERABLES * (ABNORMAL) Differential, Automated (07/08/2022 5:48 AM EDT) Neutrophils % 49.5 % [facility] Neutr Abs (ANC) 2.62 1.70 - 6.10 x10(3)/[facility] Lymphocytes % 41.6 % [facility] Lymphocytes Abs 2.2 0.9 - 3.2 x10(3)/[facility] Monocytes % 5.5 % [facility] Monocyte Abs 0.3 0.3 - 0.9 x10(3)/[facility] Eosinophils % 2.1 % [facility] Eosinophils Abs 0.1 0.0 - 0.4 x10(3)/[facility] Basophils % 0.4 % [facility] Basophils Abs 0.0 0.0 - 0.1 x10(3)/[facility] Immature Gran % 0.90 % [facility] Comment: Immature granulocytes(IG's)percentage and absolute count will include metamyelocytes, myelocytes, and promyelocytes. Blood smears from CBCs yielding IG's will be scanned manually for concordance. If this scan disagrees with the automated IG or if promyelocytes are noted, a manual differential will be performed. Debora Gran Abs 0.05(H) 0.00 - 0.04 x10(3)/[facility] Blood 07/08/2022 5:48 AM EDT 07/08/2022 5:53 AM EDT Narrative Resulting Agency Comment Spec In Lab Hollie Perez MD HEMATOLOGY ORDERABL ES [facility] [place] [place] [address] * (ABNORMAL) Hemogram (07/08/2022 5:48 AM EDT) WBC 5.3 4.0 - 9.5 x10(3)/[facility] LAB[facility] RBC 3.42(L) 4.00 - 5.21 x10(6)/[facility] Hemoglobin 8.4(L) 11.7 - 15.5 g/dL [facility] Hematocrit 27.2(L) 35.7 - 45.8 % [facility] MCV 79.5(L) 82.6 - 94.4 fL [facility] MCH 24.6(L) 27.1 - 32.0 pg [facility] MCHC 30.9(L) 31.7 - 35.0 g/dL [facility] Platelets 336 145 - 357 x10(3)/[facility] RDWSD 55.7(H) 37.0 - 46.0 fL [facility] RDWCV 19.9(H) 11.5 - 14.1 % [facility] MPV 9.2 7.6 - 12.9 [facility] nRBC % Auto 0.4 % [facility] nRBC Abs Auto 0.020(H) 0.000 - 0.000 x10(3)/[facility] Blood 07/08/2022 5:48 AM EDT 07/08/2022 5:53 AM EDT Narrative Resulting Agency Comment Spec In Lab Hollie Perez MD HEMATOLOGY ORDERABL ES [facility] [place] [address] * (ABNORMAL) Basic Metabolic Panel (non-fasting) (07/08/2022 5:48 AM EDT) Glucose Lvl 92 65 - 199 mg/dL [facility] Comment:Diabetes: >=200 mg/d L plus symptoms BUN 6(L) 8 - 18 mg/dL [facility] Creatinine 0.24(L) 0.70 - 1.20 mg/dL [facility] Sodium 140 135 - 145 mmol/L [facility] Potassium 3.8 3.5 - 5.0 mmol/L [facility] Comment: Please note: ??Patients with WBC >100,000 may have falsely elevated Potassium levels. ??For accurate Potassium quantification in these patients send serum separator tube (gold top) for subsequent determinations. ??Contact the Clinical Chemistry Laboratory if there are any questions. Chloride 105 98 - 107 mmol/L [facility] CO2 23 22 - 31 mmol/L [facility] Anion Gap 12 5 - 15 mmol/L [facility] Calcium 8.7 8.5 - 10.5 mg/dL [facility] Estimated GFR 155 >=60 mL/min/1. 73 m?? [facility] Comment: This patient's estimated GFR [...] and symptoms in addition to eGFR. Blood 07/08/2022 5:48 AM EDT 07/08/2022 5:53 AM EDT Narrative Resulting Agency Comment Spec In Lab Hollie Perez MD CHEMISTRY ORDERABLE S [facility] [place] [address] * Cortisol (07/08/2022 5:48 AM EDT) Cortisol 17.6 mcg/dL [facility] Comment: Reference ranges: ??AM (6-10am): ??4.8-19.5 mcg/dL ??PM (4-8pm) : ??2.5-11.9 mcg/dL Blood 07/08/2022 5:48 AM EDT 07/08/2022 5:53 AM EDT Narrative Resulting Agency Comment Spec In Lab Hollie Perez MD CHEMISTRY ORDERABLE S Performing Organization Address City/[facility]/ZIP Co de Phone Number [facility] [place] [place] [address] * (ABNORMAL) CRP, acute inflammation (07/08/2022 5:48 AM EDT) Pathologist [facility] CRP 16.8(H) <=4.9 mg/L [facility] Blood 07/08/2022 5:48 AM EDT 07/08/2022 5:53 AM EDT Narrative Resulting Agency Comment Spec In Lab Hollie Perez MD CHEMISTRY ORDERABLE S Performing Organization Address [facility] Co de Phone Number [facility] [place] [address] * (ABNORMAL) Ferritin (07/08/2022 5:48 AM EDT) [facility] Ferritin 204(H) 15 - 150 ng/mL [facility] Comment: Pediatric reference ranges not verified at [facility], interpret with caution. Reference ranges for females greater than 50 years of age approach values for men, i.e., 30-400 ng/mL. Blood 07/08/2022 5:48 AM EDT 07/08/2022 5:53 AM EDT Narrative Resulting Agency Comment Spec In Lab Hollie Perez MD CHEMISTRY ORDERABLE S Performing Organization Address [facility]/ZIP Co de Phone Number [facility] [place] [place] [address] * (ABNORMAL) Iron and TIBC (07/08/2022 5:48 AM EDT) Pathologist [facility] Iron 52 30 - 150 mcg/dL [facility] TIBC 217(L) 250 - 450 mcg/dL [facility] Iron Saturation 24 20 - 50 % [facility] Blood 07/08/2022 5:48 AM EDT 07/08/2022 5:53 AM EDT Narrative Resulting Agency Comment Spec In Lab Hollie Perez MD CHEMISTRY ORDERABLE S Performing Organization Address City/[facility]/ZIP Co de Phone Number [facility] [place] [address] * EKG 12 Lead (07/07/2022 11:44 AM EDT) Ventricular rate 78 BPM MUSE SYSTEM Atrial Rate 78 BPM MUSE SYSTEM P-R Interval 132 ms MUSE SYSTEM QRS Duration 84 ms MUSE SYSTEM Q-T Interval 410 ms MUSE SYSTEM QTC Calculated (Bezet) 467 ms MUSE SYSTEM Calculated P [place] 23 degrees MUSE SYSTEM Calculated R [place] 0 degrees MUSE SYSTEM Calculated T [place] 24 degrees MUSE SYSTEM INTERPRETATION Normal sinus rhythm with sinus arrhythmia Cannot rule out Inferior infarct , age undetermined Abnormal ECG When compared with ECG of 04-JUL-2022 00:16, Vent. rate has decreased BY ??74 BPM Confirmed by MD Murry Michael ([id number]) on 07/10/2022 4:37:33 PM MUSE SYSTEM 07/07/2022 11:4 4 AM EDT 07/10/2022 4:37 PM EDT Hollie Perez MD ECG ORDERABLES Performing Organization Address [facility]/ZIP Co de Phone Number MUSE SYSTEM * (ABNORMAL) Blood Gas Venous ([facility]) (07/07/2022 7:10 AM EDT) pH Hitesh 7.42 7.32 - 7.42 [facility] pCO2 Hitesh 39(L) 41 - 51 mmHg [facility] pO2 Hitesh 58(H) 25 - 40 mmHg [facility] HCO3 Hitesh 24.5 mmol/L [facility] BE Hitesh 0.0 mmol/L [facility] Hgb Blood Gas 8.8(L) 11.7 - 15.5 g/dL [facility] O2HB Hitesh 89.6 % [facility] COHB Hitesh 0.3 % [facility] Comment: Nonsmokers: 0.5-1.5% COHB Smokers: Variable, but usually less than 10% Toxic: 20-30% COHB Lethal: Greater than 60% COHB METHB Hitesh 0.1 <=1.5 % [facility] Na Whole Blood 138 135 - 145 mmol/L [facility] K Whole Blood 3.6 3.5 - 5.0 mmol/L [facility] Comment: Please note: Patients with WBC >100,000 may have falsely elevated Potassium levels. Contact the Clinical Chemistry Laboratory if there are any questions. ICa Whole Blood 1.16 1.15 - 1.33 mmol/L [facility] Comment: Note: ??Total bilirubin higher than 20 mg/dL may lead to falsely low ionized calcium. CL Whole Blood 109(H) 98 - 107 mmol/L [facility] Gluc Whole Bld 89 65 - 199 mg/dL [facility] Comment:Diabetes: >=200 mg/d L plus symptoms Lactate WB 1.3 0.5 - 2.2 mmol/L [facility] BGas Source Venous [facility] Blood Venous Draw / Unknown 07/07/2022 7:10 AM EDT 07/07/2022 7:18 AM EDT Narrative Resulting Agency Comment Spec In Lab Mayank Kang MD CHEMISTRY ORDERABLES [facility] [place] [place] [address] * Scan, Peripheral Blood (07/07/2022 3:41 AM EDT) Plat Estimate Normal [facility] RBC Morphology Abnormal [facility] Macrocytes 1-5 /HPF [facility] Microcytes 6-10 /HPF [facility] Hypochromia Slight [facility] Ovalocytes 1-5 /HPF [facility] Giant Platelets Less than 1 /HPF [facility] Blood 07/07/2022 3:41 AM EDT 07/07/2022 3:46 AM EDT Narrative Resulting Agency Comment Spec In Lab Hollie Perez MD HEMATOLOGY ORDERABL ES Performing Organization Address [facility]/ZIP Co de Phone Number [facility] [place] [address] * (ABNORMAL) Differential, Automated (07/07/2022 3:41 AM EDT) Neutrophils % 40.9 % [facility] Neutr Abs (ANC) 1.54(L) 1.70 - 6.10 x10(3)/[facility] Lymphocytes % 49.7 % [facility] Lymphocytes Abs 1.9 0.9 - 3.2 x10(3)/[facility] Monocytes % 6.3 % [facility] Monocyte Abs 0.2(L) 0.3 - 0.9 x10(3)/[facility] Eosinophils % 2.1 % [facility] Eosinophils Abs 0.1 0.0 - 0.4 x10(3)/[facility] Basophils % 0.5 % [facility] Basophils Abs 0.0 0.0 - 0.1 x10(3)/[facility] Immature Gran % 0.50 % [facility] Comment: Immature granulocytes(IG's)percentage and absolute count will include metamyelocytes, myelocytes, and promyelocytes. Blood smears from CBCs yielding IG's will be scanned manually for concordance. If this scan disagrees with the automated IG or if promyelocytes are noted, a manual differential will be performed. Debora Gran Abs 0.02 0.00 - 0.04 x10(3)/[facility] Blood 07/07/2022 3:41 AM EDT 07/07/2022 3:46 AM EDT Narrative Resulting Agency Comment Spec In Lab Hollie Perez MD HEMATOLOGY ORDERABL ES Performing Organization Address City/[facility]/ZIP Co de Phone Number [facility] [place] [address] * (ABNORMAL) Hemogram (07/07/2022 3:41 AM EDT) [facility] WBC 3.8(L) 4.0 - 9.5 x10(3)/[facility] LABORATORY RBC 3.13(L) 4.00 - 5.21 x10(6)/[facility] LABORATORY Hemoglobin 7.6(L) 11.7 - 15.5 g/dL [facility] Hematocrit 25.5(L) 35.7 - 45.8 % [facility] MCV 81.5(L) 82.6 - 94.4 [facility] LABORATORY MCH 24.3(L) 27.1 - 32.0 pg [facility] MCHC 29.8(L) 31.7 - 35.0 g/dL [facility] Platelets 281 145 - 357 x10(3)/[facility] LABORATORY RDWSD 56.9(H) 37.0 - 46.0 [facility] RDWCV 19.5(H) 11.5 - 14.1 % [facility] MPV 9.5 7.6 - 12.9 [facility] nRBC % Auto 0.0 % [facility] nRBC Abs Auto 0.000 0.000 - 0.000 x10(3)/[facility] LABOR[facility] Blood 07/07/2022 3:41 AM EDT 07/07/2022 3:46 AM EDT Narrative Resulting Agency Comment Spec In Lab Hollie Perez MD HEMATOLOGY ORDERABL ES [facility] [place] [place] [address] * (ABNORMAL) Basic Metabolic Panel (non-fasting) (07/07/2022 3:41 AM EDT) Glucose Lvl 90 65 - 199 mg/dL [facility] Comment:Diabetes: >=200 mg/d L plus symptoms BUN 5(L) 8 - 18 mg/dL [facility] Creatinine 0.23(L) 0.70 - 1.20 mg/dL [facility] Sodium 141 135 - 145 mmol/L [facility] Potassium 3.7 3.5 - 5.0 mmol/L [facility] Comment: Please note: ??Patients with WBC >100,000 may have falsely elevated Potassium levels. ??For accurate Potassium quantification in these patients send serum separator tube (gold top) for subsequent determinations. ??Contact the Clinical Chemistry Laboratory if there are any questions. Chloride 110(H) 98 - 107 mmol/L [facility] CO2 23 22 - 31 mmol/L [facility] Anion Gap 8 5 - 15 mmol/L [facility] Calcium 8.3(L) 8.5 - 10.5 mg/dL [facility] Estimated GFR 157 >=60 mL/min/1. 73 m?? [facility] Comment: This patient's estimated GFR [...] and symptoms in addition to eGFR. Blood 07/07/2022 3:41 AM EDT 07/07/2022 3:46 AM EDT Narrative Resulting Agency Comment Spec In Lab Hollie Perez MD CHEMISTRY ORDERABLE S [facility] [place] [address] * Blood culture (07/07/2022 3:41 AM EDT) Blood Culture No growth at 5 days. [facility] Blood 07/07/2022 3:41 AM EDT 07/07/2022 4:59 AM EDT Comment:L hand Narrative Resulting Agency Comment Spec In Lab Hollie Perez MD MICROBIOLOGY - BLOO D ORDERABLES Performing Organization Address City/[facility]/ZIP Co de Phone Number [facility] [place] [address] * (ABNORMAL) Hepatic Function Panel (07/07/2022 3:41 AM EDT) Total Protein 6.0(L) 6.1 - 8.0 g/dL [facility] Albumin 2.9(L) 3.2 - 5.2 g/dL [facility] AST 20 0 - 30 unit/L [facility] ALT 42(H) 0 - 30 unit/L [facility] Alk Phos 177(H) 35 - 105 unit/L [facility] Total Bilirubin <0.2(L) 0.2 - 1.3 mg/dL [facility] Bili, Direct <0.1 0.0 - 0.3 mg/dL [facility] Blood 07/07/2022 3:41 AM EDT 07/07/2022 3:46 AM EDT Narrative Resulting Agency Comment Spec In Lab Hollie Perez MD CHEMISTRY ORDERABLE S Performing Organization Address [facility]/ZIP Co de Phone Number [facility] [place] [address] * (ABNORMAL) Hemoglobin and Hematocrit, blood (07/06/2022 6:40 PM EDT) Hemoglobin 8.5(L) 11.7 - 15.5 g/dL [facility] Hematocrit 26.4(L) 35.7 - 45.8 % [facility] Blood 07/06/2022 6:40 PM EDT 07/06/2022 6:46 PM EDT Narrative Resulting Agency Comment Spec In Lab Hollie Perez MD HEMATOLOGY ORDERABL ES Performing Organization Address [facility] Co de Phone Number [facility] [place] [address] * Lactate, whole blood, send to lab ([facility] (07/06/2022 6:40 PM EDT) Lactate WB 0.6 0.5 - 2.2 mmol/L [facility] Blood 07/06/2022 6:40 PM EDT 07/06/2022 6:46 PM EDT Narrative Resulting Agency Comment Spec In Lab Hollie Perez MD CHEMISTRY ORDERABLE S Performing Organization Address [facility] Co de Phone Number [facility] [place] [address] * POCT Glucose (07/06/2022 5:36 PM EDT) POC Glucose 86 65 - 199 mg/dL [facility] Comment: Supplemental ranges: <140 mg/dL before meals <180 mg/dL all other times of the day Blood 07/06/2022 5:36 PM EDT 07/06/2022 5:36 PM EDT Hollie Perez MD POINT OF CARE TEST ORDERABLES Performing Organization Address [facility] Co de Phone Number [facility] [place] [address] * (ABNORMAL) CRP, acute inflammation (07/06/2022 6:21 AM EDT) CRP 54.2(H) <=4.9 mg/L [facility] Blood Venous Draw / Unknown 07/06/2022 6:21 AM EDT 07/06/2022 7:28 AM EDT Narrative Resulting Agency Comment Spec In Lab Hollie Perez MD CHEMISTRY ORDERABLE S [facility] [place] [address] * (ABNORMAL) Basic Metabolic Panel (non-fasting) (07/06/2022 6:21 AM EDT) Glucose Lvl 80 65 - 199 mg/dL [facility] Comment:Diabetes: >=200 mg/d L plus symptoms BUN 4(L) 8 - 18 mg/dL [facility] Creatinine 0.26(L) 0.70 - 1.20 mg/dL [facility] Sodium 138 135 - 145 mmol/L [facility] Potassium 3.6 3.5 - 5.0 mmol/L [facility] Comment: Please note: ??Patients with WBC >100,000 may have falsely elevated Potassium levels. ??For accurate Potassium quantification in these patients send serum separator tube (gold top) for subsequent determinations. ??Contact the Clinical Chemistry Laboratory if there are any questions. Chloride 104 98 - 107 mmol/L [facility] CO2 Not Perf 22 - 31 [facility] Comment:Add-on request. Samp le too old to perform test. Anion Gap Unable to Calculate 5 - 15 mmol/L [facility] Calcium 8.6 8.5 - 10.5 mg/dL [facility] Estimated GFR 152 >=60 mL/min/1 .73 m?? [facility] Comment: This patient's estimated GFR [...] and symptoms in addition to eGFR. Blood Venous Draw / Unknown 07/06/2022 6:21 AM EDT 07/06/2022 7:28 AM EDT Narrative Resulting Agency Comment Spec In Lab Hollie Perez MD CHEMISTRY ORDERABLE S Performing Organization Address [facility]/ZIP Co de Phone Number [facility] [place] [address] * Lavender Tube HOLD (07/06/2022 6:21 AM EDT) Lavender Hold Sample in lab. [facility] Blood Venous Draw / Unknown 07/06/2022 6:21 AM EDT 07/06/2022 6:28 AM EDT Hollie Perez MD HEMATOLOGY ORDERABL ES Performing Organization Address [facility] Co de Phone Number [facility] [place] [address] * (ABNORMAL) Hepatic Function Panel (07/06/2022 6:21 AM EDT) Total Protein 6.7 6.1 - 8.0 g/dL [facility] Albumin 3.2 3.2 - 5.2 g/dL [facility] AST 25 0 - 30 unit/L [facility] ALT 57(H) 0 - 30 unit/L [facility] Alk Phos 199(H) 35 - 105 unit/L [facility] Total Bilirubin 0.3 0.2 - 1.3 mg/dL [facility] Bili, Direct 0.1 0.0 - 0.3 mg/dL [facility] Blood 07/06/2022 6:21 AM EDT 07/06/2022 6:27 AM EDT Narrative Resulting Agency Comment Spec In Lab Hollie Perez MD CHEMISTRY ORDERABLE S Performing Organization Address [facility] Co de Phone Number [facility] [place] [address] * Blood culture (07/06/2022 6:21 AM EDT) Blood Culture No growth at 5 days. [facility] Blood 07/06/2022 6:21 AM EDT 07/06/2022 11:05 AM EDT Comment:R Hand Narrative Resulting Agency Comment Spec In Lab Hollie Perez MD MICROBIOLOGY - BLOO D ORDERABLES Performing Organization Address [facility] Co de Phone Number [facility] [place] [address] * CT Abdomen & Pelvis w Contrast (07/05/2022 4:07 PM EST) Anatomical Region Laterality Modality Abdomen, Pelvis Computed Tomogra phy Impressions 07/05/2022 5:38 PM EST 1. ??Stable and smaller subcutaneous and para midline soft tissue collections extending from the skin to the edge of the lumbar spine and hardware. 2. ??Proctitis. 3. ??Cannot distinguish left lower lobe collapse from pneumonia. 4. ??Nonobstructing left nephrolithiasis. 5. ??Thick-walled bladder. Cystitis is not excluded. Thank you for letting us participate in the care of this patient. ??If you are a health care provider and have any questions regarding this report, please contact the number below. ??For patients who have questions please contact the health critical care specialist that requested your imaging first. ? Electronically signed by: Nathalie Whitaker MD, [facility] ([phone]), at 07/05/2022 5:38 PM Narrative 07/05/2022 5:38 PM EST EXAMINATION: CT ABDOMEN AND PELVIS W CONTRAST CLINICAL HISTORY: Sepsis - Include more detail below Ecoli bacteremia - has fluid collectsion already drained with negative cs/gram stain - ? abdominal source of EColi? bowel or biliary? TECHNIQUE: Helical CT of the abdomen and pelvis was performed following the intravenous administration of contrast. Administered 66.0 ml of OMNIPAQUE 350.00 mg/ml. Oral contrast administered. COMPARISON: CT lumbar spine June 24, 2022 and July 03, 2022 FINDINGS: Lower chest: Atelectasis versus consolidation left lower lobe. Liver: Normal size and attenuation without lesions. Bile ducts: Nondilated. Gallbladder: No calcified gallstones. Normal caliber wall. Pancreas: Normal attenuation without ductal dilatation. Spleen: Splenomegaly without focal lesion Adrenals: No suprarenal masses. Kidneys: Nonobstructing left nephrolithiasis. Urinary Bladder: Thick walled and incompletely distended Vasculature: Normal caliber abdominal aorta Lymph Nodes: No enlarged lymph nodes. Bowel: Ano rectal mural thickening. Moderate fecal burden. Normal caliber small bowel. Peritoneum and mesentery: Trace pelvic ascites. No free air. Abdominal wall: * ??2.4 x 3.2 cm irregular collection without mural enhancement in the left para midline posterior soft tissues in the upper lumbar region extending to the skin surface and anterior edge of the vertebral body (#1). * ??Persistent stellate soft tissue thickening at the posterior edge of the mid lumbar transverse processes, series 9 image 73. * ??Lenticular hypodense left paramedian posterior subcutaneous midline lumbar collection stable since July 03, 2022, smaller than June 24, 2022, 1.5 x 4.4 cm (#2). * ??Stable size of now hypodense, previously enhancing or hyperdense, subcutaneous collection, right of midline, immediately suprajacent to a dorsally projecting fixation screw or meredith (#3). Osseous structures: Severe dextroscoliosis of the lumbar spine with meredith and screw fixation. This is been eloquently described in prior CT lumbar spine reports. Procedure Note Nathalie Whitaker MD - 07/05/2022 EXAMINATION: CT ABDOMEN AND PELVIS W CONTRAST CLINICAL HISTORY: Sepsis - Include more detail below Ecoli bacteremia - has fluid collectsion already drained with negativecs/gram stain - ? abdominal source of EColi? bowel or biliary? TECHNIQUE: Helical CT of the abdomen and pelvis was performed followingthe intravenous administration of contrast. Administered 66.0 ml of KCVEDVLQL694.00 mg/ml. Oral contrast administered. COMPARISON: CT lumbar spine June 24, 2022 and July 03, 2022 FINDINGS: Lower chest: Atelectasis versus consolidation left lower lobe. Liver: Normal size and attenuation without lesions. Bile ducts: Nondilated. Gallbladder: No calcified gallstones. Normal caliber wall. Pancreas: Normal attenuation without ductal dilatation. Spleen: Splenomegaly without focal lesion Adrenals: No suprarenal masses. Kidneys: Nonobstructing left nephrolithiasis. Urinary Bladder: Thick walled and incompletely distended Vasculature: Normal caliber abdominal aorta Lymph Nodes: No enlarged lymph nodes. Bowel: Ano rectal mural thickening. Moderate fecal burden. Normal calibersmall bowel. Peritoneum and mesentery: Trace pelvic ascites. No free air. Abdominal wall: * 2.4 x 3.2 cm irregular collection without mural enhancement in the leftpara midline posterior soft tissues in the upper lumbar region extending to theskin surface and anterior edge of the vertebral body (#1). * Persistent stellate soft tissue thickening at the posterior edge of themid lumbar transverse processes, series 9 image 73. * Lenticular hypodense left paramedian posterior subcutaneous midlinelumbar collection stable since July 03, 2022, smaller than June 24, 2022, 1.5x 4.4 cm (#2). * Stable size of now hypodense, previously enhancing or hyperdense, subcutaneous collection, right of midline, immediately suprajacent to adorsally projecting fixation screw or meredith (#3). Osseous structures: Severe dextroscoliosis of the lumbar spine with rodand screw fixation. This is been eloquently described in prior CT lumbarspine reports. IMPRESSION 1. Stable and smaller subcutaneous and para midline soft tissuecollections extending from the skin to the edge of the lumbar spine and hardware. 2. Proctitis. 3. Cannot distinguish left lower lobe collapse from pneumonia. 4. Nonobstructing left nephrolithiasis. 5. Thick-walled bladder. Cystitis is not excluded. Thank you for letting us participate in the care of this patient. If youare a health care provider and have any questions regarding this report,please contact the number below. For patients who have questions please contactthe health critical care specialist that requested your imaging first. Hollei Perez MD IMG CT ORDERABLES * Scan, Peripheral Blood (07/05/2022 5:31 AM EST) [facility] Plat Estimate Normal [facility] RBC Morphology Abnormal [facility] Hypochromia Slight [facility] Blood 07/05/2022 5:31 AM EST 07/05/2022 5:43 AM EST Narrative Resulting Agency Comment Spec In Lab Ian Duarte MD HEMATOLOGY ORDArthur SALDANA Performing Organization Address City/[facility]/ZIP Co de Phone Number [facility] [place] [address] * Bilirubin, Direct (07/05/2022 5:31 AM EST) [facility] Bili, Direct 0.1 0.0 - 0.3 mg/dL [facility] Blood 07/05/2022 5:31 AM EST 07/05/2022 5:43 AM EST Narrative Resulting Agency Comment Spec In Lab Hollie Perez MD CHEMISTRY ORDERABLE S Performing Organization Address City/[facility]/ZIP Co de Phone Number [facility] [place] [address] * (ABNORMAL) Differential, Automated (07/05/2022 5:31 AM EST) [facility] Neutrophils % 41.2 % [facility] Neutr Abs (ANC) 1.39(L) 1.70 - 6.10 x10(3)/mc L [facility] Lymphocytes % 45.4 % [facility] Lymphocytes Abs 1.5 0.9 - 3.2 x10(3)/[facility] Monocytes % 11.6 % [facility] Monocyte Abs 0.4 0.3 - 0.9 x10(3)/[facility] Eosinophils % 0.6 % [facility] Eosinophils Abs 0.0 0.0 - 0.4 x10(3)/[facility] Basophils % 0.6 % [facility] Basophils Abs 0.0 0.0 - 0.1 x10(3)/[facility] Immature Gran % 0.60 % [facility] Comment: Immature granulocytes(IG's)percentage and absolute count will include metamyelocytes, myelocytes, and promyelocytes. Blood smears from CBCs yielding IG's will be scanned manually for concordance. If this scan disagrees with the automated IG or if promyelocytes are noted, a manual differential will be performed. Debora Gran Abs 0.02 0.00 - 0.04 x10(3)/[facility] Blood 07/05/2022 5:31 AM EST 07/05/2022 5:43 AM EST Narrative Resulting Agency Comment Spec In Lab Ian Duarte MD HEMATOLOGY CLEO SALDANA Performing Organization Address City/State/[facility] Co de Phone Number [facility] [place] [address] * (ABNORMAL) Hemogram (07/05/2022 5:31 AM EST) WBC 3.4(L) 4.0 - 9.5 x10(3)/[facility] RBC 3.20(L) 4.00 - 5.21 x10(6)/[facility] Hemoglobin 7.7(L) 11.7 - 15.5 g/dL [facility] Hematocrit 25.4(L) 35.7 - 45.8 % [facility] MCV 79.4(L) 82.6 - 94.4 fL [facility] MCH 24.1(L) 27.1 - 32.0 pg [facility] MCHC 30.3(L) 31.7 - 35.0 g/dL [facility] Platelets 240 145 - 357 x10(3)/[facility]ORATORY RDWSD 56.9(H) 37.0 - 46.0 fL [facility] RDWCV 19.7(H) 11.5 - 14.1 % [facility] MPV 9.5 7.6 - 12.9 fL [facility] nRBC % Auto 0.0 % [facility] nRBC Abs Auto 0.000 0.000 - 0.000 x10(3)/[facility] Blood 07/05/2022 5:31 AM EST 07/05/2022 5:43 AM EST Narrative Resulting Agency Comment Spec In Lab Ian Duarte MD HEMATOLOGY CLEO SALDANA [facility] [place] [address] * (ABNORMAL) Comprehensive metabolic panel (non-fasting) (07/05/2022 5:31 AM EST) Glucose Lvl 85 65 - 199 mg/dL [facility] Comment:Diabetes: >=200 mg/d L plus symptoms BUN 6(L) 8 - 18 mg/dL [facility] Creatinine 0.29(L) 0.70 - 1.20 mg/dL [facility] Sodium 142 135 - 145 mmol/L [facility] Potassium 3.8 3.5 - 5.0 mmol/L [facility] Comment: Please note: ??Patients with WBC >100,000 may have falsely elevated Potassium levels. ??For accurate Potassium quantification in these patients send serum separator tube (gold top) for subsequent determinations. ??Contact the Clinical Chemistry Laboratory if there are any questions. Chloride 108(H) 98 - 107 mmol/L [facility] CO2 25 22 - 31 mmol/L [facility] Anion Gap 9 5 - 15 mmol/L [facility] Calcium 8.4(L) 8.5 - 10.5 mg/dL [facility] Total Protein 5.9(L) 6.1 - 8.0 g/dL [facility] Albumin 3.1(L) 3.2 - 5.2 g/dL [facility] AST 39(H) 0 - 30 unit/L [facility] ALT 74(H) 0 - 30 unit/L [facility] Alk Phos 209(H) 35 - 105 unit/L [facility] Total Bilirubin 0.4 0.2 - 1.3 mg/dL [facility] Estimated GFR 148 >=60 mL/min/1. 73 m?? [facility] Comment: This patient's estimated GFR [...] and symptoms in addition to eGFR. Blood 07/05/2022 5:31 AM EST 07/05/2022 5:43 AM EST Narrative Resulting Agency Comment Spec In Lab Ian Duarte MD CHEMISTRY ORDER MYRANDA [facility] [place] [address] * IR All Drainage Procedures (07/04/2022 4:14 PM EST) Anatomical Region Laterality Modality X-Ray Angiograph y Narrative 07/04/2022 4:52 PM EST Preoperative Diagnosis: re accumulated Lumbar collection by CT, Fevers Postoperative Diagnosis: ?? Same Procedure Performed: Ultrasound and fluoroscopically guided drain placement. Operators: Mich Martino MD, Attending Estimated Blood Loss: Negligible. Fluoroscopy dose: ??Please see [facility] IR technologist record for procedural dose/time. Cefazolin/ cefuroxime was not ordered for antimicrobial prophylaxis as it is not indicated or strongly backed by the medical literature. Anesthesia: 1. Conscious sedation with titrated ??Versed during continuous hemodynamic monitoring including pulse oximetry, heart rate and blood pressure was provided by an independent qualified trained Nurse. ?? I was present during the intraservice time as documented by the IR Nurse. ??Please see nursing notes for exact medication dosages. 2. 1% lidocaine, local. The patient was informed of the risks, benefits, and alternatives to the procedure and gave written consent, which was then placed in the chart. Appropriate time-out was performed prior to the procedure. Additional DVT prophylaxis was not provided due to the short nature of the procedure, the lack of general anesthesia, and is not strongly backed by the medical literature for this patient population undergoing this type of minimally invasive image guided procedure. Description of Procedure: ??All elements of maximal sterile barrier technique were met including cap, mask, sterile gown, sterile gloves, large sterile sheet, hand hygiene and 2% chlorhexidine for cutaneous antisepsis. The lumabr region was prepped and draped in the usual sterile fashion. ?? Local anesthetic was administered. ??Using US guidance, an 18-gauge needle was advanced into the small fluid collection in the lumbar region. ??An aspirate could not be obtained. ??A stiff wire was then advanced through the needle into the small fluid collection under fluoroscopic guidance. ?? The needle was removed over the wire. ??The tract was dilated over the wire and a 8.5 Italian drain was advanced over the wire into the fluid collection. ??A spot fluoroscopic image shows the drain to be in the collection. ??The drain was sutured into place and attached to bulb suction. The patient tolerated the procedure well. Impression: Uneventful ultrasound and fluoroscopically guided drain placement as above. ??No fluid could be aspirated or was present by US. ??This may represent granulation tissue. I, the attending Interventional Radiologist performed the entire procedure. Ian Duarte MD IMG IR ORDERABL ES * (ABNORMAL) Differential, Automated (07/04/2022 6:07 AM EST) Neutrophils % 81.6 % [facility] Neutr Abs (ANC) 6.79(H) 1.70 - 6.10 x10(3)/mc L [facility] Lymphocytes % 11.8 % [facility] Lymphocytes Abs 1.0 0.9 - 3.2 x10(3)/[facility] Monocytes % 6.3 % [facility] Monocyte Abs 0.5 0.3 - 0.9 x10(3)/[facility] Eosinophils % 0.0 % [facility] Eosinophils Abs 0.0 0.0 - 0.4 x10(3)/[facility] Basophils % 0.1 % [facility] Basophils Abs 0.0 0.0 - 0.1 x10(3)/[facility] Immature Gran % 0.20 % [facility] Comment: Immature granulocytes(IG's)percentage and absolute count will include metamyelocytes, myelocytes, and promyelocytes. Blood smears from CBCs yielding IG's will be scanned manually for concordance. If this scan disagrees with the automated IG or if promyelocytes are noted, a manual differential will be performed. Debora Gran Abs 0.02 0.00 - 0.04 x10(3)/mc L [facility] Blood 07/04/2022 6:07 AM EST 07/04/2022 6:14 AM EST Narrative Resulting Agency Comment Spec In Lab Ian Duarte MD HEMATOLOGY CLEO SALDANA [facility] [place] [place] [address] * (ABNORMAL) Hemogram (07/04/2022 6:07 AM EST) Pathologist [facility] WBC 8.3 4.0 - 9.5 x10(3)/[facility] RBC 3.38(L) 4.00 - 5.21 x10(6)/[facility] Hemoglobin 8.3(L) 11.7 - 15.5 g/dL [facility] Hematocrit 26.0(L) 35.7 - 45.8 % [facility] MCV 76.9(L) 82.6 - 94.4 fL [facility] MCH 24.6(L) 27.1 - 32.0 pg [facility] MCHC 31.9 31.7 - 35.0 g/dL [facility] [place] Platelets 244 145 - 357 x10(3)/[facility] RDWSD 54.5(H) 37.0 - 46.0 [facility] RDWCV 19.5(H) 11.5 - 14.1 % [facility] MPV 9.3 7.6 - 12.9 [facility] nRBC % Auto 0.0 % [facility] nRBC Abs Auto 0.000 0.000 - 0.000 x10(3)/[facility] Blood 07/04/2022 6:07 AM EST 07/04/2022 6:14 AM EST Narrative Resulting Agency Comment Spec In Lab Ian Duarte MD HEMATOLOGY CLEO SALDANA [facility] [place] [place] [address] * Lactate, whole blood, send to lab ([facility] (07/04/2022 6:07 AM EST) Pathologist [facility] Lactate WB 1.9 0.5 - 2.2 mmol/L [facility] Blood 07/04/2022 6:07 AM EST 07/04/2022 6:14 AM EST Narrative Resulting Agency Comment Spec In Lab Yury Saavedra MD CHEMISTRY ORDERABLE S [facility] [address] * (ABNORMAL) Basic Metabolic Panel (non-fasting) (07/04/2022 6:07 AM EST) Glucose Lvl 114 65 - 199 mg/dL [facility] Comment:Diabetes: >=200 mg/d L plus symptoms BUN 8 8 - 18 mg/dL [facility] Creatinine 0.34(L) 0.70 - 1.20 mg/dL [facility] Sodium 134(L) 135 - 145 mmol/L [facility] Potassium 4.1 3.5 - 5.0 mmol/L [facility] Comment: Please note: ??Patients with WBC >100,000 may have falsely elevated Potassium levels. ??For accurate Potassium quantification in these patients send serum separator tube (gold top) for subsequent determinations. ??Contact the Clinical Chemistry Laboratory if there are any questions. Chloride 100 98 - 107 mmol/L [facility] CO2 24 22 - 31 mmol/L [facility] Anion Gap 10 5 - 15 mmol/L [facility] Calcium 8.4(L) 8.5 - 10.5 mg/dL [facility] Estimated GFR 143 >=60 mL/min/1. 73 m?? [facility] Comment: This patient's estimated GFR [...] and symptoms in addition to eGFR. Blood 07/04/2022 6:07 AM EST 07/04/2022 6:14 AM EST Narrative Resulting Agency Comment Spec In Lab Ian Duarte MD CHEMISTRY ORDER MYRANDA Performing Organization Address [facility]/ZIP Co de Phone Number [facility] [place] [address] * (ABNORMAL) Urinalysis Microscopic Exam (07/04/2022 3:05 AM EST) RBC UA 2 0 - 4 /HPF [facility] WBC UA 2 0 - 5 /HPF [facility] Squam Epith UA 6(H) <=4 /HPF [facility] TriPhos Adina UA Occasional (A) None /HPF [facility] Clean Catch Urine 07/04/2022 3:05 AM EST 07/04/2022 3:10 AM EST Narrative Resulting Agency Comment Spec In Lab Yury Saavedra MD URINE ORDERABLES Performing Organization Address [facility] Co de Phone Number [facility] [place] [address] * (ABNORMAL) Urinalysis with reflex Culture (07/04/2022 3:05 AM EST) Glucose UA Negative Negative mg/dL [facility] Protein UA 30(A) Negative mg/dL [facility] Bilirubin UA Negative Negative mg/dL [facility] Comment: Clinical correlation required for positive Urine Bilirubin results as false positive may occur with some drugs and drug related products. If a false positive is suspected a serum total bilirubin should be considered if clinically indicated. Urobilinogen UA Normal Normal mg/dL [facility] pH UA 8.0 5.0 - 8.0 [facility] Blood UA Negative Negative mg/dL [facility] Ketones UA Negative Negative mg/dL [facility] Nitrite UA Negative Negative [facility] Leukocytes UA Trace(A) Negative mcL [facility] Appearance UA Cloudy(A) Clear [facility] Spec [place] UA >=1.030(A) 1.005 - 1.030 [facility] Color UA Dark Yellow Yellow [facility] Culture Reflexed No [facility] Clean Catch Urine 07/04/2022 3:05 AM EST 07/04/2022 3:10 AM EST Narrative Resulting Agency Comment Spec In Lab Yury Saavedra MD URINE ORDERABLES Performing Organization Address [facility]/ZIP Co de Phone Number [facility] [address] * (ABNORMAL) Lactate, whole blood, send to lab ([facility] (07/04/2022 12:50 AM EST) Pathologist [facility] Lactate WB 2.6(H) 0.5 - 2.2 mmol/L [facility] Blood 07/04/2022 12:5 0 AM EST 07/04/2022 1:02 AM EST Narrative Resulting Agency Comment Spec In Lab Yury Saavedra MD CHEMISTRY ORDERABLE S Performing Organization Address City/[facility]/ZIP Co de Phone Number [facility] [address] * EKG 12 Lead (07/04/2022 12:16 AM EST) Ventricular rate 152 BPM MUSE SYSTEM Atrial Rate 152 BPM MUSE SYSTEM P-R Interval 112 ms MUSE SYSTEM QRS Duration 66 ms MUSE SYSTEM Q-T Interval 328 ms MUSE SYSTEM QTC Calculated (Bezet) 521 ms MUSE SYSTEM Calculated P [place] 13 degrees MUSE SYSTEM Calculated R [place] 7 degrees MUSE SYSTEM Calculated T [place] 54 degrees MUSE SYSTEM INTERPRETATION Sinus tachycardia Nonspecific T wave abnormality Abnormal ECG When compared with ECG of 01-JUL-2022 14:17, No significant change was found I personally reviewed the tracing and edited the fellows interpretation Confirmed by fellow Ravinder Garcia ([id number]) on 07/07/2022 4:08:27 AM Confirmed by MD CONTRERAS SALVATORE ([id number]) on 07/07/2022 10:33:36 AM MUSE SYSTEM 07/04/2022 12:1 6 AM EST 07/07/2022 10:33 AM EDT Yury Saavedra MD ECG ORDERABLES Performing Organization Address City/[facility]/ZIP Co de Phone Number MUSE SYSTEM * Lavender Tube HOLD (07/03/2022 11:05 PM EST) Lavender Hold Sample in lab. [facility] Blood Venous Draw / Unknown 07/03/2022 11:05 PM EST 07/03/2022 11:14 PM EST Yury Saavedra MD HEMATOLOGY ORDERABL ES Performing Organization Address [facility] Co de Phone Number [facility] [address] * (ABNORMAL) CRP, acute inflammation (07/03/2022 11:05 PM EST) Pathologist [facility] CRP 73.7(H) <=4.9 mg/L [facility] Blood 07/03/2022 11:0 5 PM EST 07/03/2022 11:14 PM EST Narrative Resulting Agency Comment Spec In Lab Yury Saavedra MD CHEMISTRY ORDERABLE S Performing Organization Address [facility] Co de Phone Number [facility] [place] [address] * (ABNORMAL) Blood culture (07/03/2022 11:05 PM EST) Pathologist [facility] Blood Culture Escherichia coli detected by PCR Isolate saved. If future testing is required, contact the Microbiology Marine Electronics Technician. (A) [facility] Gram Stain Anaerobic Growth detected in anaerobic bottle. Gram Negative Rods seen Results called to and read back by Zoila Rincon RN (A) [facility] Organism Escherichia coli(A) [facility] Organism Gram Negative Rods(A) [facility] Blood STRUCTURE OF RIGHT HAND / Unknown 07/03/2022 11:05 PM EST 07/04/2022 12:01 AM EST Narrative Resulting Agency Comment Spec In Lab Organism Antibiotic Method Susceptibility Escherichia coli Amikacin MICROSCAN METHOD Sensitive Escherichia coli Amoxicillin + Clavulanate MICROSCAN M ETHOD Sensitive Escherichia coli Ampicillin MICROSCAN METHOD Sensitive Escherichia coli Ampicillin + Sulbactam MICROSCAN METH OD Sensitive Escherichia coli Aztreonam MICROSCAN METHOD Sensitive Escherichia coli Cefazolin MICROSCAN METHOD Sensitive Escherichia coli Cefepime MICROSCAN METHOD <=2: Sensitive Escherichia coli Cefpodoxime MICROSCAN METHOD Sensitive Escherichia coli Ceftazidime MICROSCAN METHOD <=2: Sensitive Escherichia coli Ceftriaxone MICROSCAN METHOD Sensitive Escherichia coli Cefuroxime MICROSCAN METHOD Sensitive Escherichia coli Ciprofloxacin MICROSCAN METHOD Sensitive Escherichia coli Ertapenem MICROSCAN METHOD Sensitive Escherichia coli Gentamicin MICROSCAN METHOD Sensitive Escherichia coli Levofloxacin MICROSCAN METHOD Sensitive Comment: Levofloxacin and Ciprofloxacin may not adequately treat infections in critically ill patients even when isolates test susceptible in the laboratory. Contact Infectious Disease before using in critically ill patients. Escherichia coli Meropenem MICROSCAN METHOD <=1: Sensitive Escherichia coli Piperacillin/Tazobactam MICROSCAN MET HOD <=8: Sensitive Escherichia coli Tetracycline MICROSCAN METHOD Sensitive Escherichia coli Tigecycline MICROSCAN METHOD Sensitive Escherichia coli Tobramycin MICROSCAN METHOD Sensitive Escherichia coli Trimethoprim/Sulfa MICROSCAN METHOD Sensitive Yury Saavedra MD MICROBIOLOGY - BLOO D ORDERABLES Performing Organization Address City/State/[facility] Co de Phone Number [facility] [address] * Blood culture (07/03/2022 10:45 PM EST) Blood Culture No growth at 5 days. [facility] Blood STRUCTURE OF LEFT HAND / Unknown 07/03/2022 10:45 PM EST 07/04/2022 Narrative Resulting Agency Comment Spec In Lab Yury Saavedra MD MICROBIOLOGY - BLOO D ORDERABLES [facility] [place] [address] * CT Lumbar Spine w Contrast (07/03/2022 5:52 PM EST) Anatomical Region Laterality Modality L-spine Computed Tomogra phy Impressions 07/03/2022 6:31 PM EST Loculated collections in the dorsal subcutaneous fat and likely right gluteal musculature, slightly decreased in size at L3-4 and T12. No peripheral enhancement. Please clinically correlate for signs/symptoms of infection. Thank you for letting us participate in the care of this patient. ??If you are a health care provider and have any questions regarding this report, please contact the number below. ??For patients who have questions please contact the health critical care specialist that requested your imaging first. ? Electronically signed by: Zina Renae MD, [facility] ([phone]), at 07/03/2022 6:31 PM Narrative 07/03/2022 6:31 PM EST EXAMINATION: CT LUMBAR SPINE W CONTRAST CLINICAL HISTORY: h/o fluid collection with concern for abscess. s/p CARMELLA drain placement and removal TECHNIQUE: CT lumbar spine performed after the intravenous administration of contrast. Administered 59.3 ml of OMNIPAQUE 350.00 mg/ml. COMPARISON: CT lumbar spine June 24, 2022 FINDINGS: Lumbar dextroscoliosis with apex at L2-3 posterior osseous and instrumented fusion including posterior rods, bilateral L1-L4 pedicle/vertebral body screws, and bilateral iliac screws, the right one of which remains dislocated/disconnected. Otherwise no evidence of hardware loosening or fracture. Hardware artifact partially obscures a right subcutaneous fat/intramuscular collection associated with the dislocated right iliac screw measuring 3.5 x 4.0 cm and extending superiorly in the subcutaneous fat to L3-4, where it is decreased in axial dimension to 4.7 x 2.9cm compared to 4.9cm x 3.2. Strandy changes intervene between this collection and another collection in the midline superficial and deep subcutaneous fat at T12 which is slightly decreased in size to 2.5 x 2.3 cm compared to 2.8 x 2.3 cm previously. No bone destruction. Decreased AP diameter of the vertebral bodies. No definite spinal canal stenosis. Procedure Note Zina Renae MD - 07/03/2022 EXAMINATION: CT LUMBAR SPINE W CONTRAST CLINICAL HISTORY: h/o fluid collection with concern for abscess. s/p JPdrain placement and removal TECHNIQUE: CT lumbar spine performed after the intravenous administration ofcontrast. Administered 59.3 ml of OMNIPAQUE 350.00 mg/ml. COMPARISON: CT lumbar spine June 24, 2022 FINDINGS: Lumbar dextroscoliosis with apex at L2-3 posterior osseous andinstrumented fusion including posterior rods, bilateral L1-L4 pedicle/vertebral bodyscrews, and bilateral iliac screws, the right one of which remains dislocated/disconnected. Otherwise no evidence of hardware loosening or fracture. Hardware artifact partially obscures a right subcutaneousfat/intramuscular collection associated with the dislocated right iliac screw measuring 3.5x 4.0 cm and extending superiorly in the subcutaneous fat to L3-4, where it is decreased in axial dimension to 4.7 x 2.9cm compared to 4.9cm x 3.2.Strandy changes intervene between this collection and another collection in themidline superficial and deep subcutaneous fat at T12 which is slightly decreasedin size to 2.5 x 2.3 cm compared to 2.8 x 2.3 cm previously. No bone destruction. Decreased AP diameter of the vertebral bodies. Nodefinite spinal canal stenosis. IMPRESSION Loculated collections in the dorsal subcutaneous fat and likely rightgluteal musculature, slightly decreased in size at L3-4 and T12. No peripheral enhancement. Please clinically correlate for signs/symptoms ofinfection. Thank you for letting us participate in the care of this patient. If youare a health care provider and have any questions regarding this report,please contact the number below. For patients who have questions please contactthe health critical care specialist that requested your imaging first. Ian Duarte MD IMG CT ORDERABL ES * (ABNORMAL) Differential, Automated (07/03/2022 10:08 AM EST) Neutrophils % 50.0 % [facility] Neutr Abs (ANC) 1.61(L) 1.70 - 6.10 x10(3)/ L [facility] Lymphocytes % 37.0 % [facility] Lymphocytes Abs 1.2 0.9 - 3.2 x10(3)/[facility] Monocytes % 10.9 % [facility] Monocyte Abs 0.4 0.3 - 0.9 x10(3)/[facility] Eosinophils % 0.9 % [facility] Eosinophils Abs 0.0 0.0 - 0.4 x10(3)/[facility] Basophils % 0.9 % [facility] Basophils Abs 0.0 0.0 - 0.1 x10(3)/[facility] Immature Gran % 0.30 % [facility] Comment: Immature granulocytes(IG's)percentage and absolute count will include metamyelocytes, myelocytes, and promyelocytes. Blood smears from CBCs yielding IG's will be scanned manually for concordance. If this scan disagrees with the automated IG or if promyelocytes are noted, a manual differential will be performed. Debora Gran Abs 0.01 0.00 - 0.04 x10(3)/ L [facility] Blood 07/03/2022 10:0 8 AM EST 07/03/2022 10:19 AM EST Narrative Resulting Agency Comment Spec In Lab Ian Duarte MD HEMATOLOGY CLEO SALDANA [facility] [place] [address] * (ABNORMAL) Hemogram (07/03/2022 10:08 AM EST) WBC 3.2(L) 4.0 - 9.5 x10(3)/[facility] RBC 4.08 4.00 - 5.21 x10(6)/[facility] Hemoglobin 9.9(L) 11.7 - 15.5 g/dL [facility] Hematocrit 32.2(L) 35.7 - 45.8 % [facility] [place] MCV 78.9(L) 82.6 - 94.4 fL [facility] MCH 24.3(L) 27.1 - 32.0 pg [facility] MCHC 30.7(L) 31.7 - 35.0 g/dL [facility] [place] Platelets 307 145 - 357 x10(3)/[facility] RDWSD 53.3(H) 37.0 - 46.0 fL [facility] RDWCV 19.0(H) 11.5 - 14.1 % [facility] MPV 9.2 7.6 - 12.9 fL [facility] nRBC % Auto 0.0 % [facility] nRBC Abs Auto 0.000 0.000 - 0.000 x10(3)/[facility] Blood 07/03/2022 10:0 8 AM EST 07/03/2022 10:19 AM EST Narrative Resulting Agency Comment Spec In Lab Ian Duarte MD HEMATOLOGY CLEO SALDANA [facility] [place] [address] * (ABNORMAL) Sedimentation rate (07/03/2022 10:08 AM EST) Sed Rate 110(H) 2 - 37 mm/hr [facility] Comment: Effective April 06, 2019 new capillary photometric technology has resulted in a change in reference ranges. It is recommended that each ESR result be reviewed with its own age appropriate reference range. Blood 07/03/2022 10:0 8 AM EST 07/03/2022 10:19 AM EST Narrative Resulting Agency Comment Spec In Lab Ian Duarte MD HEMATOLOGY CLEO SALDANA [facility] [place] [address] * XR Chest One View (07/02/2022 5:04 PM EST) Anatomical Region Laterality Modality Chest N/A Digital Radiogra phy Impressions 07/02/2022 11:26 PM EST 1. ??No focal pneumonia. 2. ??Stable appearance of the posterior spinous fusion hardware and chest. Thank you for letting us participate in the care of this patient. ??If you are a health care provider and have any questions regarding this report, please contact the number below. ??For patients who have questions please contact the health critical care specialist that requested your imaging first. ? Narrative 07/02/2022 11:26 PM EST EXAMINATION: XR CHEST ONE VIEW CLINICAL HISTORY: fever TECHNIQUE: 1 view of the chest COMPARISON: Chest x-ray, March 23, 2009 FINDINGS: Lungs are clear and without focal consolidation. No pleural effusion or pneumothorax. Cardiomediastinal silhouette and pulmonary vasculature are stable. Stable appearance of the hemithorax and the posterior thoracic to upper lumbar spine fusion hardware. Procedure Note Enid Vargas MD - 07/02/2022 EXAMINATION: XR CHEST ONE VIEW CLINICAL HISTORY: fever TECHNIQUE: 1 view of the chest COMPARISON: Chest x-ray, March 23, 2009 FINDINGS: Lungs are clear and without focal consolidation. No pleural effusion or pneumothorax. Cardiomediastinal silhouette and pulmonary vasculature arestable. Stable appearance of the hemithorax and the posterior thoracic to upperlumbar spine fusion hardware. IMPRESSION 1. No focal pneumonia. 2. Stable appearance of the posterior spinous fusion hardware andchest. Thank you for letting us participate in the care of this patient. If youare a health care provider and have any questions regarding this report,please contact the number below. For patients who have questions please contactthe health critical care specialist that requested your imaging first. Electronically signed by: Enid Vargas MD, [facility]([phone]), at 07/02/2022 11:26 PM Ian Duarte MD IMG DX ORDERABL ES * (ABNORMAL) Urinalysis Microscopic Exam (07/02/2022 3:35 PM EST) RBC UA 7(H) 0 - 4 /HPF [facility] WBC UA 3 0 - 5 /HPF [facility] Squam Epith UA 4 <=4 /HPF [facility] Hyaline Cast UA 3(H) 0 - 2 /LPF [facility] Straight Catheter Urine 07/02/2022 3:35 PM EST 07/02/2022 4:10 PM EST Narrative Resulting Agency Comment Spec In Lab Ian Duarte MD URINE ORDERABLE S [facility] [place] [address] * (ABNORMAL) Urinalysis with reflex Culture (07/02/2022 3:35 PM EST) Glucose UA Negative Negative mg/dL [facility] Protein UA Negative Negative mg/dL [facility] Bilirubin UA Negative Negative mg/dL [facility] Comment: Clinical correlation required for positive Urine Bilirubin results as false positive may occur with some drugs and drug related products. If a false positive is suspected a serum total bilirubin should be considered if clinically indicated. Urobilinogen UA Normal Normal mg/dL [facility] pH UA 7.5 5.0 - 8.0 [facility] Blood UA Trace(A) Negative mg/dL [facility] Ketones UA Negative Negative mg/dL [facility] Nitrite UA Negative Negative [facility] Leukocytes UA Negative Negative [facility] Appearance UA Clear Clear [facility] Spec [place] UA 1.016 1.005 - 1.030 [facility] Color UA Yellow Yellow [facility] Culture Reflexed No [facility] Straight Catheter Urine 07/02/2022 3:35 PM EST 07/02/2022 4:10 PM EST Narrative Resulting Agency Comment Spec In Lab Ian Duarte MD URINE ORDERABLE S Performing Organization Address City/State/[facility] Co de Phone Number [facility] [address] * Differential, Automated (07/02/2022 6:15 AM EST) Neutrophils % 57.6 % [facility] Neutr Abs (ANC) 1.89 1.70 - 6.10 x10(3)/[facility] Lymphocytes % 32.3 % [facility] Lymphocytes Abs 1.1 0.9 - 3.2 x10(3)/[facility] Monocytes % 9.5 % [facility] Monocyte Abs 0.3 0.3 - 0.9 x10(3)/[facility] Eosinophils % 0.0 % [facility] Eosinophils Abs 0.0 0.0 - 0.4 x10(3)/[facility] Basophils % 0.3 % [facility] Basophils Abs 0.0 0.0 - 0.1 x10(3)/[facility] Immature Gran % 0.30 % [facility] Comment: Immature granulocytes(IG's)percentage and absolute count will include metamyelocytes, myelocytes, and promyelocytes. Blood smears from CBCs yielding IG's will be scanned manually for concordance. If this scan disagrees with the automated IG or if promyelocytes are noted, a manual differential will be performed. Debora Gran Abs 0.01 0.00 - 0.04 x10(3)/[facility] Blood 07/02/2022 6:15 AM EST 07/02/2022 6:49 AM EST Narrative Resulting Agency Comment Spec In Lab Ian Duarte MD HEMATOLOGY CLEO SALDANA Performing Organization Address City/State/[facility] Co de Phone Number [facility] [address] * (ABNORMAL) Hemogram (07/02/2022 6:15 AM EST) WBC 3.3(L) 4.0 - 9.5 x10(3)/[facility] RBC 3.98(L) 4.00 - 5.21 x10(6)/[facility] Hemoglobin 9.6(L) 11.7 - 15.5 g/dL [facility] Hematocrit 30.7(L) 35.7 - 45.8 % [facility] MCV 77.1(L) 82.6 - 94.4 fL [facility] MCH 24.1(L) 27.1 - 32.0 pg [facility] MCHC 31.3(L) 31.7 - 35.0 g/dL [facility] Platelets 336 145 - 357 x10(3)/[facility] RDWSD 51.1(H) 37.0 - 46.0 fL [facility] RDWCV 18.6(H) 11.5 - 14.1 % [facility] MPV 9.1 7.6 - 12.9 fL [facility] nRBC % Auto 0.0 % [facility] nRBC Abs Auto 0.000 0.000 - 0.000 x10(3)/mcL [facility] Blood 07/02/2022 6:15 AM EST 07/02/2022 6:49 AM EST Narrative Resulting Agency Comment Spec In Lab Ian Duarte MD HEMATOLOGY ORDE RABLES Performing Organization Address [facility] Co de Phone Number [facility] [place] [address] * TSH [place] (07/02/2022 6:15 AM EST) [facility] TSH 1.45 0.27 - 4.20 mcIU/mL [facility] Comment: Reference Interval (mcIU/mL): Females: ??First Trimester: 0.23-3.88 ??Second Trimester: 0.22-3.90 ??Third Trimester: 0.44-4.66 Blood 07/02/2022 6:15 AM EST 07/02/2022 6:49 AM EST Narrative Resulting Agency Comment Spec In Lab Ian Duarte MD CHEMISTRY ORDER MYRANDA Performing Organization Address [facility] Co de Phone Number [facility] [place] [address] * (ABNORMAL) Basic Metabolic Panel (non-fasting) (07/02/2022 6:15 AM EST) [facility] Glucose Lvl 91 65 - 199 mg/dL [facility] Comment:Diabetes: >=200 mg/d L plus symptoms BUN 5(L) 8 - 18 mg/dL [facility] Creatinine 0.24(L) 0.70 - 1.20 mg/dL [facility] Sodium 134(L) 135 - 145 mmol/L [facility] Potassium 4.0 3.5 - 5.0 mmol/L [facility] Comment: Please note: ??Patients with WBC >100,000 may have falsely elevated Potassium levels. ??For accurate Potassium quantification in these patients send serum separator tube (gold top) for subsequent determinations. ??Contact the Clinical Chemistry Laboratory if there are any questions. Chloride 100 98 - 107 mmol/L [facility] CO2 24 22 - 31 mmol/L [facility] Anion Gap 10 5 - 15 mmol/L [facility] Calcium 8.7 8.5 - 10.5 mg/dL [facility] Estimated GFR 155 >=60 mL/min/1. 73 m?? [facility] Comment: This patient's estimated GFR [...] and symptoms in addition to eGFR. Blood 07/02/2022 6:15 AM EST 07/02/2022 6:49 AM EST Narrative Resulting Agency Comment Spec In Lab Ian Duarte MD CHEMISTRY ORDER MYRANDA [facility] [place] [address] * (ABNORMAL) Sedimentation rate (07/02/2022 6:15 AM EST) Sed Rate 89(H) 2 - 37 mm/hr [facility] Comment: Effective April 06, 2019 new capillary photometric technology has resulted in a change in reference ranges. It is recommended that each ESR result be reviewed with its own age appropriate reference range. Blood 07/02/2022 6:15 AM EST 07/02/2022 6:49 AM EST Narrative Resulting Agency Comment Spec In Lab Ian Duarte MD HEMATOLOGY ORDE RABLES Performing Organization Address [facility] Co de Phone Number [facility] [place] [address] * Blood culture (07/01/2022 8:21 PM EST) Blood Culture No growth at 5 days. [facility] Blood 07/01/2022 8:21 PM EST 07/01/2022 8:57 PM EST Comment:RH Narrative Resulting Agency Comment Spec In Lab Ian Duarte MD MICROBIOLOGY - BLOOD ORDERABLES Performing Organization Address [facility] Co de Phone Number [facility] [address] * Magnesium (07/01/2022 6:14 PM EST) Magnesium 0.74 0.69 - 1.07 mmol/L [facility] Blood 07/01/2022 6:14 PM EST 07/01/2022 6:21 PM EST Narrative Resulting Agency Comment Spec In Lab Ian Duarte MD CHEMISTRY ORDER MYRANDA Performing Organization Address [facility] de Phone Number [facility] [place] [address] * Lactate, whole blood, send to lab ([facility] (07/01/2022 6:14 PM EST) Lactate WB 1.7 0.5 - 2.2 mmol/L [facility] Blood 07/01/2022 6:14 PM EST 07/01/2022 6:21 PM EST Narrative Resulting Agency Comment Spec In Lab Ian Duarte MD CHEMISTRY ORDER MYRANDA [facility] [place] [place] [address] * IR Drain Check/Change/Remove (07/01/2022 3:35 PM EST) Anatomical Region Laterality Modality Head X-Ray Angiograph y Narrative 07/01/2022 10:06 PM EST INTERVENTIONAL RADIOLOGY PROCEDURE NOTE Procedure: Paraspinal Drainage Catheter Evaluation and Removal Indication for Procedure: Paraspinal drainage catheter in situ. ??Minimal output. Tana Shelton is a 27 y.o. female with PMH of TBI, cerebral palsy, scoliosis who developed two fluid collections: one in the posterior subcutaneous fat and a second, more dense collection centered about a dislocated iliac screw, who is s/p aspiration of the superior paraspinal collection and an 8FR into the more inferior collection. She now presents to Interventional Radiology to undergo drain check/exchange/remove in the setting of low output over the last few days (10mL over the last 48 hours). Informed Consent: After discussing risks (including infection, trauma / damage to surrounding structures, hemorrhage, non-success, amongst others), and benefits of the procedure, the patient consented to the procedure. Monitoring and Sedation [...] side down on the procedure table. ??The back including the previously placed drainage catheter was cleaned and prepped in typical sterile fashion; maximal sterile barrier technique was used throughout. ?? Cleaners fluoroscopic images were obtained. ??Contrast was injected through the catheter and repeat fluoroscopic images were obtained. ??The catheter was cut and an 0.035 Amplatz wire was advanced through the catheter. ??The catheter was removed over the wire. ??The site was evaluated to ensure no active hemorrhage following catheter removal. ??The wire was removed and a sterile dressing was applied. ?? Medications: 2% Lidocaine Jelly Topically. Contrast: 10 cc Omnipaque 350, intra-cavitary. Fluoroscopic Time: 0.5 minutes. Estimated Blood Loss: < 5 cc. Complications: ??No immediate. Findings / Impression: No residual abscess cavity. ??Drainage catheter removed without incident. ?? Resident/Fellow: None. Attending: Dr. Jamaal Jenkins. I, Dr. Jenkins, was present throughout the procedure. Ian Duarte MD IMG IR ORDERABL ES * EKG 12 Lead (07/01/2022 2:17 PM EST) Ventricular rate 133 BPM MUSE SYSTEM Atrial Rate 133 BPM MUSE SYSTEM P-R Interval 120 ms MUSE SYSTEM QRS Duration 74 ms MUSE SYSTEM Q-T Interval 298 ms MUSE SYSTEM QTC Calculated (Bezet) 443 ms MUSE SYSTEM Calculated P [place] 37 degrees MUSE SYSTEM Calculated R [place] 62 degrees MUSE SYSTEM Calculated T [place] 19 degrees MUSE SYSTEM INTERPRETATION Sinus tachycardia Nonspecific T wave abnormality Otherwise normal ECG When compared with ECG of 29-JUN-2022 08:55, No significant change was found Confirmed by Lyndon Lafleur ([id number]) on 07/02/2022 5:10:53 PM MUSE SYSTEM 07/01/2022 2:17 PM EST 07/02/2022 5:10 PM EST Ian Duarte MD ECG ORDERABLES MUSE SYSTEM * Differential, Automated (07/01/2022 5:50 AM EST) Neutrophils % 75.5 % [facility] Neutr Abs (ANC) 4.41 1.70 - 6.10 x10(3)/[facility] Lymphocytes % 15.0 % [facility] Lymphocytes Abs 0.9 0.9 - 3.2 x10(3)/[facility] Monocytes % 7.7 % [facility] Monocyte Abs 0.4 0.3 - 0.9 x10(3)/[facility] Eosinophils % 1.0 % [facility] Eosinophils Abs 0.1 0.0 - 0.4 x10(3)/[facility] Basophils % 0.5 % [facility] Basophils Abs 0.0 0.0 - 0.1 x10(3)/[facility] Immature Gran % 0.30 % [facility] Comment: Immature granulocytes(IG's)percentage and absolute count will include metamyelocytes, myelocytes, and promyelocytes. Blood smears from CBCs yielding IG's will be scanned manually for concordance. If this scan disagrees with the automated IG or if promyelocytes are noted, a manual differential will be performed. Debora Gran Abs 0.02 0.00 - 0.04 x10(3)/[facility] Blood 07/01/2022 5:50 AM EST 07/01/2022 6:17 AM EST Narrative Resulting Agency Comment Spec In Lab Estevan Alfaro MD HEMATOLOGY ORDERABLE S Performing Organization Address City/State/[facility] Co de Phone Number [facility] [address] * (ABNORMAL) Hemogram (07/01/2022 5:50 AM EST) WBC 5.8 4.0 - 9.5 x10(3)/[facility] RBC 3.84(L) 4.00 - 5.21 x10(6)/[facility] Hemoglobin 9.3(L) 11.7 - 15.5 g/dL [facility] Hematocrit 29.6(L) 35.7 - 45.8 % [facility] MCV 77.1(L) 82.6 - 94.4 fL [facility] MCH 24.2(L) 27.1 - 32.0 pg [facility] MCHC 31.4(L) 31.7 - 35.0 g/dL [facility] Platelets 352 145 - 357 x10(3)/[facility] RDWSD 51.2(H) 37.0 - 46.0 fL [facility] RDWCV 18.6(H) 11.5 - 14.1 % [facility] MPV 9.3 7.6 - 12.9 fL [facility] nRBC % Auto 0.0 % [facility] nRBC Abs Auto 0.000 0.000 - 0.000 x10(3)/[facility] Blood 07/01/2022 5:50 AM EST 07/01/2022 6:17 AM EST Narrative Resulting Agency Comment Spec In Lab Estevan Alfaro MD HEMATOLOGY ORDERABLE S Performing Organization Address City/[facility]/ZIP Co de Phone Number [facility] [place] [address] * (ABNORMAL) CRP, acute inflammation (07/01/2022 5:50 AM EST) CRP 53.1(H) <=4.9 mg/L [facility] Comment:result rechecked-KS Blood 07/01/2022 5:50 AM EST 07/01/2022 6:17 AM EST Narrative Resulting Agency Comment Spec In Lab Ian Duarte MD CHEMISTRY ORDER MYRANDA Performing Organization Address City/[facility]/ZIP Co de Phone Number [facility] [place] [address] * (ABNORMAL) Sedimentation rate (07/01/2022 5:50 AM EST) Sed Rate >119(H) 2 - 37 mm/hr [facility] Comment: Effective April 06, 2019 new capillary photometric technology has resulted in a change in reference ranges. It is recommended that each ESR result be reviewed with its own age appropriate reference range. Blood 07/01/2022 5:50 AM EST 07/01/2022 6:17 AM EST Narrative Resulting Agency Comment Spec In Lab Ian Duarte MD HEMATOLOGY CLEO SALDANA [facility] [place] [address] * (ABNORMAL) BMP w/fasting Glucose (07/01/2022 5:50 AM EST) Glucose Fasting 95 65 - 99 mg/dL [facility] Comment: ?Fasting* Glucose Interpretive Criteria Normal ?65-99 mg/dL Impaired Fasting glucose ?100-125 mg/dL Consistent with Diabetes Mellitus ? >or= 126 mg/dL *Fasting is defined as no caloric intake for at least 8 hours In the absence of unequivocal hyperglycemia a plasma glucose value of >or= 126 mg/dL should be repeated on a subsequent day. Diagnosis and Classification of Diabetes Mellitus, Position Statement from the [place] [employer]. ??Diabetes Care, Volume 33, Supplement 1, Apr 2009 BUN 10 8 - 18 mg/dL [facility] Creatinine 0.25(L) 0.70 - 1.20 mg/dL [facility] Sodium 138 135 - 145 mmol/L [facility] Potassium 4.1 3.5 - 5.0 mmol/L [facility] Comment: Please note: ??Patients with WBC >100,000 may have falsely elevated Potassium levels. ??For accurate Potassium quantification in these patients send serum separator tube (gold top) for subsequent determinations. ??Contact the Clinical Chemistry Laboratory if there are any questions. Chloride 103 98 - 107 mmol/L [facility] CO2 24 22 - 31 mmol/L [facility] Anion Gap 11 5 - 15 mmol/L [facility] Calcium 9.0 8.5 - 10.5 mg/dL [facility] Estimated GFR 154 >=60 mL/min/1. 73 m?? [facility] Comment: This patient's estimated GFR [...] and symptoms in addition to eGFR. Blood 07/01/2022 5:50 AM EST 07/01/2022 6:17 AM EST Narrative Resulting Agency Comment Spec In Lab Estevan Alfaro MD CHEMISTRY ORDERABLES [facility] [place] [address] * Differential, Automated (06/30/2022 4:29 AM EST) Neutrophils % 57.6 % [facility] Neutr Abs (ANC) 3.68 1.70 - 6.10 x10(3)/[facility] Lymphocytes % 33.2 % [facility] Lymphocytes Abs 2.1 0.9 - 3.2 x10(3)/[facility] Monocytes % 7.0 % [facility] Monocyte Abs 0.4 0.3 - 0.9 x10(3)/[facility] Eosinophils % 1.4 % [facility] Eosinophils Abs 0.1 0.0 - 0.4 x10(3)/[facility] Basophils % 0.5 % [facility] Basophils Abs 0.0 0.0 - 0.1 x10(3)/[facility] Immature Gran % 0.30 % [facility] Comment: Immature granulocytes(IG's)percentage and absolute count will include metamyelocytes, myelocytes, and promyelocytes. Blood smears from CBCs yielding IG's will be scanned manually for concordance. If this scan disagrees with the automated IG or if promyelocytes are noted, a manual differential will be performed. Debora Gran Abs 0.02 0.00 - 0.04 x10(3)/[facility] Blood 06/30/2022 4:29 AM EST 06/30/2022 4:51 AM EST Narrative Resulting Agency Comment Spec In Lab Estevan Alfaro MD HEMATOLOGY ORDERABLE S [facility] [place] [address] * (ABNORMAL) Hemogram (06/30/2022 4:29 AM EST) WBC 6.4 4.0 - 9.5 x10(3)/[facility] RBC 3.96(L) 4.00 - 5.21 x10(6)/[facility] Hemoglobin 9.4(L) 11.7 - 15.5 g/dL [facility] Hematocrit 30.4(L) 35.7 - 45.8 % [facility] MCV 76.8(L) 82.6 - 94.4 [facility]ATORY MCH 23.7(L) 27.1 - 32.0 pg [facility] MCHC 30.9(L) 31.7 - 35.0 g/dL [facility] Platelets 349 145 - 357 x10(3)/[facility]ORY RDWSD 50.4(H) 37.0 - 46.0 [facility] RDWCV 18.4(H) 11.5 - 14.1 % [facility] MPV 9.3 7.6 - 12.9 [facility] nRBC % Auto 0.0 % [facility] nRBC Abs Auto 0.000 0.000 - 0.000 x10(3)/[facility] Blood 06/30/2022 4:29 AM EST 06/30/2022 4:51 AM EST Narrative Resulting Agency Comment Spec In Lab Estevan Alfaro MD HEMATOLOGY ORDERABLE S [facility] [place] [address] * (ABNORMAL) BMP w/fasting Glucose (06/30/2022 4:29 AM EST) Glucose Fasting 86 65 - 99 mg/dL [facility] Comment: ?Fasting* Glucose Interpretive Criteria Normal ?65-99 mg/dL Impaired Fasting glucose ?100-125 mg/dL Consistent with Diabetes Mellitus ? >or= 126 mg/dL *Fasting is defined as no caloric intake for at least 8 hours In the absence of unequivocal hyperglycemia a plasma glucose value of >or= 126 mg/dL should be repeated on a subsequent day. Diagnosis and Classification of Diabetes Mellitus, Position Statement from the [place] [employer]. ??Diabetes Care, Volume 33, Supplement 1, Apr 2009 BUN 11 8 - 18 mg/dL [facility] Creatinine 0.22(L) 0.70 - 1.20 mg/dL [facility] Sodium 142 135 - 145 mmol/L [facility] Potassium 3.7 3.5 - 5.0 mmol/L [facility] Comment: Please note: ??Patients with WBC >100,000 may have falsely elevated Potassium levels. ??For accurate Potassium quantification in these patients send serum separator tube (gold top) for subsequent determinations. ??Contact the Clinical Chemistry Laboratory if there are any questions. Chloride 105 98 - 107 mmol/L [facility] CO2 25 22 - 31 mmol/L [facility] Anion Gap 12 5 - 15 mmol/L [facility] Calcium 8.9 8.5 - 10.5 mg/dL [facility] Estimated GFR 159 >=60 mL/min/1. 73 m?? [facility] Comment: This patient's estimated GFR [...] and symptoms in addition to eGFR. Blood 06/30/2022 4:29 AM EST 06/30/2022 4:51 AM EST Narrative Resulting Agency Comment Spec In Lab Estevan Alfaro MD CHEMISTRY ORDERABLES Performing Organization Address [facility] Co de Phone Number [facility] [address] * EKG 12 Lead (06/29/2022 8:55 AM EST) Ventricular rate 112 BPM MUSE SYSTEM Atrial Rate 112 BPM MUSE SYSTEM P-R Interval 124 ms MUSE SYSTEM QRS Duration 78 ms MUSE SYSTEM Q-T Interval 336 ms MUSE SYSTEM QTC Calculated (Bezet) 458 ms MUSE SYSTEM Calculated P [place] 22 degrees MUSE SYSTEM Calculated R [place] 8 degrees MUSE SYSTEM Calculated T [place] 69 degrees MUSE SYSTEM INTERPRETATION Sinus tachycardia Nonspecific T wave abnormality Abnormal ECG When compared with ECG of 26-JUN-2022 20:46, Minimal criteria for Inferior infarct are no longer Present Nonspecific T wave abnormality, worse in Lateral leads Confirmed by MD Shabazz Danette ([id number]) on 06/29/2022 9:49:48 PM MUSE SYSTEM 06/29/2022 8:55 AM EST 06/29/2022 9:49 PM EST Estevan Alfaro MD ECG ORDERABLES Performing Organization Address [facility] Co de Phone Number MUSE SYSTEM * TSH (06/29/2022 5:58 AM EST) [facility] TSH 1.84 0.27 - 4.20 mcIU/mL [facility] Comment: Reference Interval (mcIU/mL): Females: ??First Trimester: 0.23-3.88 ??Second Trimester: 0.22-3.90 ??Third Trimester: 0.44-4.66 Blood Venous Draw / Unknown 06/29/2022 5:58 AM EST 06/29/2022 6:10 AM EST Narrative Resulting Agency Comment Spec In Lab Estevan Alfaro MD CHEMISTRY ORDERABLES Performing Organization Address City/[facility]/ZIP Co de Phone Number [facility] [place] [address] * Magnesium (06/29/2022 5:58 AM EST) [facility] Magnesium 0.88 0.69 - 1.07 mmol/L [facility] Blood Venous Draw / Unknown 06/29/2022 5:58 AM EST 06/29/2022 6:10 AM EST Narrative Resulting Agency Comment Spec In Lab Estevan Alfaro MD CHEMISTRY ORDERABLES Performing Organization Address City/[facility]/ZIP Co de Phone Number [facility] [place] [address] * Differential, Automated (06/29/2022 5:58 AM EST) [facility] Neutrophils % 61.0 % [facility] Neutr Abs (ANC) 3.44 1.70 - 6.10 x10(3)/[facility] Lymphocytes % 26.5 % [facility] Lymphocytes Abs 1.5 0.9 - 3.2 x10(3)/[facility] LABOR[facility]ORY Monocytes % 9.0 % [facility] Monocyte Abs 0.5 0.3 - 0.9 x10(3)/[facility] Eosinophils % 2.1 % [facility] Eosinophils Abs 0.1 0.0 - 0.4 x10(3)/[facility] Basophils % 0.9 % [facility] Basophils Abs 0.0 0.0 - 0.1 x10(3)/[facility] Immature Gran % 0.50 % [facility] Comment: Immature granulocytes(IG's)percentage and absolute count will include metamyelocytes, myelocytes, and promyelocytes. Blood smears from CBCs yielding IG's will be scanned manually for concordance. If this scan disagrees with the automated IG or if promyelocytes are noted, a manual differential will be performed. Debora Gran Abs 0.03 0.00 - 0.04 x10(3)/[facility] Blood 06/29/2022 5:58 AM EST 06/29/2022 6:06 AM EST Narrative Resulting Agency Comment Spec In Lab Estevan Alfaro MD HEMATOLOGY ORDERABLE S [facility] [place] [address] * (ABNORMAL) Hemogram (06/29/2022 5:58 AM EST) WBC 5.6 4.0 - 9.5 x10(3)/[facility] RBC 4.11 4.00 - 5.21 x10(6)/[facility] Hemoglobin 9.8(L) 11.7 - 15.5 g/dL [facility] Hematocrit 31.7(L) 35.7 - 45.8 % [facility] MCV 77.1(L) 82.6 - 94.4 fL [facility] MCH 23.8(L) 27.1 - 32.0 pg [facility] MCHC 30.9(L) 31.7 - 35.0 g/dL [facility] Platelets 345 145 - 357 x10(3)/[facility]ORY RDWSD 50.5(H) 37.0 - 46.0 fL [facility] RDWCV 18.3(H) 11.5 - 14.1 % [facility] MPV 9.2 7.6 - 12.9 fL [facility] nRBC % Auto 0.0 % [facility] nRBC Abs Auto 0.000 0.000 - 0.000 x10(3)/mcL [facility] Blood 06/29/2022 5:58 AM EST 06/29/2022 6:06 AM EST Narrative Resulting Agency Comment Spec In Lab Estevan Alfaro MD HEMATOLOGY ORDERABLE S Performing Organization Address City/State/[facility] Co de Phone Number [facility] [place] [address] * (ABNORMAL) BMP w/fasting Glucose (06/29/2022 5:58 AM EST) Glucose Fasting 90 65 - 99 mg/dL [facility] Comment: ?Fasting* Glucose Interpretive Criteria Normal ?65-99 mg/dL Impaired Fasting glucose ?100-125 mg/dL Consistent with Diabetes Mellitus ? >or= 126 mg/dL *Fasting is defined as no caloric intake for at least 8 hours In the absence of unequivocal hyperglycemia a plasma glucose value of >or= 126 mg/dL should be repeated on a subsequent day. Diagnosis and Classification of Diabetes Mellitus, Position Statement from the [place] [employer]. ??Diabetes Care, Volume 33, Supplement 1, Apr 2009 BUN 11 8 - 18 mg/dL [facility] Creatinine 0.25(L) 0.70 - 1.20 mg/dL [facility] Sodium 134(L) 135 - 145 mmol/L [facility] Potassium 4.1 3.5 - 5.0 mmol/L [facility] Comment: Please note: ??Patients with WBC >100,000 may have falsely elevated Potassium levels. ??For accurate Potassium quantification in these patients send serum separator tube (gold top) for subsequent determinations. ??Contact the Clinical Chemistry Laboratory if there are any questions. Chloride 102 98 - 107 mmol/L [facility] CO2 21(L) 22 - 31 mmol/L [facility] Anion Gap 11 5 - 15 mmol/L [facility] Calcium 9.0 8.5 - 10.5 mg/dL [facility] Estimated GFR 154 >=60 mL/min/1. 73 m?? [facility] Comment: This patient's estimated GFR [...] and symptoms in addition to eGFR. Blood 06/29/2022 5:58 AM EST 06/29/2022 6:06 AM EST Narrative Resulting Agency Comment Spec In Lab Estevan Alfaro MD CHEMISTRY ORDERABLES Performing Organization Address City/State/[facility] Co de Phone Number [facility] [place] [address] * (ABNORMAL) Respiratory Panel PCR (06/28/2022 2:58 PM EST) Resp Panel Source DIPLOMATIC OFFICER Swab MA [facility] Resp Panel PCR Positive(A) Negative MAR Y [facility] Comment: Respiratory Panels are performed on the [employer], using multiplexed PCR nucleic acid detection. ??Negative results do not preclude respiratory infection and should not be used as the sole basis for diagnosis, treatment or other management decisions. Adenovirus Not Detected Not Detected [facility] Coronavirus HKU1 Not Detected Not Detected [facility] Coronavirus NL63 Not Detected Not Detected [facility] Coronavirus 229E Not Detected Not Detected [facility] Coronavirus OC43 Not Detected Not Detected [facility] SARS-CoV-2 Not Detected Not Detected [facility] Comment: Testing for SARS-CoV-2 (Severe acute respiratory syndrome coronavirus 2) to aid in the diagnosis of COVID-19 is performed using the [employer] Respiratory Panel 2.1 ([employer]) as authorized by the FDA issued Emergency Use Authorization (EUA). This panel also tests for multiple other viral and bacterial pathogens. This assay is intended for In-vitro Diagnostic (IVD) use with nasopharyngeal swabs in viral transport media. The assay is performed based on the instructions for use and additional guidance provided by the FDA. Testing is performed in laboratories within the [facility], each of which is certified under the [...] fact sheets at the following FDA website: https://www.fda.gov/medical-devices/mufjdtgyico-wsrjiyi-3719-imvlc-32-gwsvycfiy- use-a ravrdqaybybus-suilopr-kingkst/ximfs-nrjguqrznui-hptn Human Metapneumovirus Not Detected Not Detected [facility] Human Rhino/Enterovirus Not Detected Not Detected [facility] Influenza A Not Detected Not Detected [facility] Influenza B Not Detected Not Detected [facility] Parainfluenza 1 Not Detected Not Detected [facility] Parainfluenza 2 Not Detected Not Detected [facility] Parainfluenza 3 Detected(A) Not Detected [facility] Parainfluenza 4 Not Detected Not Detected [facility] Respiratory Syncytial Virus Not Detected Not Detected [facility] Chlamydophila pneumoniae Not Detected Not Detected [facility] Mycoplasma pneumoniae Not Detected Not Detected [facility] Nasopharyngeal Swab 06/29/19 2:58 PM EST 06/28/2022 4:24 PM EST Narrative Resulting Agency Comment Spec In Lab Estevan Alfaro MD MICROBIOLOGY - GENER AL ORDERABLES Performing Organization Address City/State/[facility] Co de Phone Number [facility] [place] [address] * Differential, Automated (06/28/2022 5:38 AM EST) Neutrophils % 54.1 % [facility] Neutr Abs (ANC) 3.04 1.70 - 6.10 x10(3)/[facility] Lymphocytes % 34.3 % [facility] Lymphocytes Abs 1.9 0.9 - 3.2 x10(3)/[facility] Monocytes % 8.7 % [facility] Monocyte Abs 0.5 0.3 - 0.9 x10(3)/[facility] Eosinophils % 2.0 % [facility] Eosinophils Abs 0.1 0.0 - 0.4 x10(3)/[facility] Basophils % 0.5 % [facility] Basophils Abs 0.0 0.0 - 0.1 x10(3)/[facility] Immature Gran % 0.40 % [facility] Comment: Immature granulocytes(IG's)percentage and absolute count will include metamyelocytes, myelocytes, and promyelocytes. Blood smears from CBCs yielding IG's will be scanned manually for concordance. If this scan disagrees with the automated IG or if promyelocytes are noted, a manual differential will be performed. Debora Gran Abs 0.02 0.00 - 0.04 x10(3)/[facility] Blood 06/28/2022 5:38 AM EST 06/28/2022 5:54 AM EST Narrative Resulting Agency Comment Spec In Lab Anurag Call DO HEMATOLOGY ORDERABLE S [facility] [place] [place] [address] * (ABNORMAL) Hemogram (06/28/2022 5:38 AM EST) WBC 5.6 4.0 - 9.5 x10(3)/[facility] RBC 4.08 4.00 - 5.21 x10(6)/[facility] Hemoglobin 9.9(L) 11.7 - 15.5 g/dL [facility] Hematocrit 31.6(L) 35.7 - 45.8 % [facility] MCV 77.5(L) 82.6 - 94.4 fL [facility] MCH 24.3(L) 27.1 - 32.0 pg [facility] MCHC 31.3(L) 31.7 - 35.0 g/dL [facility] Platelets 371(H) 145 - 357 x10(3)/[facility] RDWSD 50.5(H) 37.0 - 46.0 [facility] RDWCV 18.2(H) 11.5 - 14.1 % [facility] MPV 9.3 7.6 - 12.9 fL [facility] nRBC % Auto 0.0 % [facility] nRBC Abs Auto 0.000 0.000 - 0.000 x10(3)/[facility] Blood 06/28/2022 5:38 AM EST 06/28/2022 5:54 AM EST Narrative Resulting Agency Comment Spec In Lab Anurag Call DO HEMATOLOGY ORDERABLE S Performing Organization Address [facility] de Phone Number [facility] [place] [address] * Magnesium (06/28/2022 5:38 AM EST) Magnesium 0.78 0.69 - 1.07 mmol/L [facility] Blood 06/28/2022 5:38 AM EST 06/28/2022 5:54 AM EST Narrative Resulting Agency Comment Spec In Lab Anurag Call DO CHEMISTRY ORDERABLES Performing Organization Address [facility] de Phone Number [facility] [place] [address] * (ABNORMAL) Basic Metabolic Panel (non-fasting) (06/28/2022 5:38 AM EST) Glucose Lvl 95 65 - 199 mg/dL [facility] Comment:Diabetes: >=200 mg/d L plus symptoms BUN 11 8 - 18 mg/dL [facility] Creatinine 0.27(L) 0.70 - 1.20 mg/dL [facility] Sodium 137 135 - 145 mmol/L [facility] Potassium 4.0 3.5 - 5.0 mmol/L [facility] Comment: Please note: ??Patients with WBC >100,000 may have falsely elevated Potassium levels. ??For accurate Potassium quantification in these patients send serum separator tube (gold top) for subsequent determinations. ??Contact the Clinical Chemistry Laboratory if there are any questions. Chloride 102 98 - 107 mmol/L [facility] CO2 25 22 - 31 mmol/L [facility] Anion Gap 10 5 - 15 mmol/L [facility] Calcium 9.1 8.5 - 10.5 mg/dL [facility] Estimated GFR 151 >=60 mL/min/1. 73 m?? [facility] Comment: This patient's estimated GFR [...] and symptoms in addition to eGFR. Blood 06/28/2022 5:38 AM EST 06/28/2022 5:54 AM EST Narrative Resulting Agency Comment Spec In Lab Anurag Call DO CHEMISTRY ORDERABLES [facility] [place] [place] [address] * (ABNORMAL) CRP, acute inflammation (06/28/2022 5:38 AM EST) CRP 53.8(H) <=4.9 mg/L [facility] Blood 06/28/2022 5:38 AM EST 06/28/2022 5:54 AM EST Narrative Resulting Agency Comment Spec In Lab Anurag Call CHEMISTRY ORDERABLES Performing Organization Address City/[facility] Co de Phone Number [facility] [address] * (ABNORMAL) Sedimentation rate (06/28/2022 5:38 AM EST) Pathologist [facility] Sed Rate 113(H) 2 - 37 mm/hr [facility] Comment: Effective April 06, 2019 new capillary photometric technology has resulted in a change in reference ranges. It is recommended that each ESR result be reviewed with its own age appropriate reference range. Blood 06/28/2022 5:38 AM EST 06/28/2022 5:54 AM EST Narrative Resulting Agency Comment Spec In Lab Anurag Call HEMATOLOGY ORDERABLE S Performing Organization Address [facility] Co de Phone Number [facility] [place] [address] * Differential, Automated (06/27/2022 5:58 AM EST) [facility] Neutrophils % 50.4 % [facility] Neutr Abs (ANC) 2.79 1.70 - 6.10 x10(3)/[facility] Lymphocytes % 38.7 % [facility] Lymphocytes Abs 2.1 0.9 - 3.2 x10(3)/[facility] Monocytes % 8.0 % [facility] Monocyte Abs 0.4 0.3 - 0.9 x10(3)/[facility] Eosinophils % 1.8 % [facility] Eosinophils Abs 0.1 0.0 - 0.4 x10(3)/[facility] Basophils % 0.7 % [facility] Basophils Abs 0.0 0.0 - 0.1 x10(3)/[facility] Immature Gran % 0.40 % [facility] Comment: Immature granulocytes(IG's)percentage and absolute count will include metamyelocytes, myelocytes, and promyelocytes. Blood smears from CBCs yielding IG's will be scanned manually for concordance. If this scan disagrees with the automated IG or if promyelocytes are noted, a manual differential will be performed. Debora Gran Abs 0.02 0.00 - 0.04 x10(3)/[facility] Blood 06/27/2022 5:58 AM EST 06/27/2022 6:24 AM EST Narrative Resulting Agency Comment Spec In Lab Eddi Vázquez MD HEMATOLOGY ORDERABLE S [facility] [place] [address] * (ABNORMAL) Hemogram (06/27/2022 5:58 AM EST) WBC 5.5 4.0 - 9.5 x10(3)/[facility] LABORATORY RBC 3.85(L) 4.00 - 5.21 x10(6)/[facility] LABORATORY Hemoglobin 9.2(L) 11.7 - 15.5 g/dL [facility] Hematocrit 30.0(L) 35.7 - 45.8 % [facility] MCV 77.9(L) 82.6 - 94.4 [facility] MCH 23.9(L) 27.1 - 32.0 pg [facility] MCHC 30.7(L) 31.7 - 35.0 g/dL [facility] Platelets 389(H) 145 - 357 x10(3)/[facility] LABORATORY RDWSD 50.5(H) 37.0 - 46.0 [facility] LABORATORY RDWCV 17.9(H) 11.5 - 14.1 % [facility] MPV 9.4 7.6 - 12.9 [facility] LABORATORY nRBC % Auto 0.0 % [facility] nRBC Abs Auto 0.000 0.000 - 0.000 x10(3)/[facility] LABORATORY Blood 06/27/2022 5:58 AM EST 06/27/2022 6:24 AM EST Narrative Resulting Agency Comment Spec In Lab Eddi Vázquez MD HEMATOLOGY ORDERABLE S [facility] [place] [address] * (ABNORMAL) Basic Metabolic Panel (non-fasting) (06/27/2022 5:58 AM EST) Glucose Lvl 97 65 - 199 mg/dL [facility] Comment:Diabetes: >=200 mg/d L plus symptoms BUN 12 8 - 18 mg/dL [facility] Creatinine 0.32(L) 0.70 - 1.20 mg/dL [facility] Sodium 138 135 - 145 mmol/L [facility] Potassium 3.9 3.5 - 5.0 mmol/L [facility] Comment: Please note: ??Patients with WBC >100,000 may have falsely elevated Potassium levels. ??For accurate Potassium quantification in these patients send serum separator tube (gold top) for subsequent determinations. ??Contact the Clinical Chemistry Laboratory if there are any questions. Chloride 102 98 - 107 mmol/L [facility] CO2 25 22 - 31 mmol/L [facility] Anion Gap 11 5 - 15 mmol/L [facility] Calcium 9.2 8.5 - 10.5 mg/dL [facility] Estimated GFR 145 >=60 mL/min/1. 73 m?? [facility] Comment: This patient's estimated GFR [...] and symptoms in addition to eGFR. Blood 06/27/2022 5:58 AM EST 06/27/2022 6:24 AM EST Narrative Resulting Agency Comment Spec In Lab Eddi Vázquez MD CHEMISTRY ORDERABLES [facility] [place] [address] * (ABNORMAL) Blood Gas Venous ([facility]) (06/26/2022 9:01 PM EST) pH Hitesh 7.45(H) 7.32 - 7.42 [facility] pCO2 Hitesh 40(L) 41 - 51 mmHg [facility] pO2 Hitesh 70(H) 25 - 40 mmHg [facility] HCO3 Hitesh 27.2 mmol/L [facility] BE Hitesh 3.2 mmol/L [facility] Hgb Blood Gas 11.5(L) 11.7 - 15.5 g/dL [facility] O2HB Hitesh 94.6 % [facility] COHB Hitesh 0.1 % [facility] Comment: Nonsmokers: 0.5-1.5% COHB Smokers: Variable, but usually less than 10% Toxic: 20-30% COHB Lethal: Greater than 60% COHB METHB Hitesh 0.3 <=1.5 % [facility] Na Whole Blood 140 135 - 145 mmol/L [facility] K Whole Blood 4.2 3.5 - 5.0 mmol/L [facility] Comment: Please note: Patients with WBC >100,000 may have falsely elevated Potassium levels. Contact the Clinical Chemistry Laboratory if there are any questions. ICa Whole Blood 1.20 1.15 - 1.33 mmol/L [facility] Comment: Note: ??Total bilirubin higher than 20 mg/dL may lead to falsely low ionized calcium. CL Whole Blood 101 98 - 107 mmol/L [facility] Gluc Whole Bld 98 65 - 199 mg/dL [facility] Comment:Diabetes: >=200 mg/d L plus symptoms Lactate WB 1.3 0.5 - 2.2 mmol/L [facility] BGas Source Venous [facility] Blood Venous Draw / Unknown 06/26/2022 9:01 PM EST 06/26/2022 9:07 PM EST Narrative Resulting Agency Comment Spec In Lab Mayank Kang MD CHEMISTRY ORDERABLES Performing Organization Address City/[facility]/ZIP Co de Phone Number [facility] [place] [address] * EKG 12 Lead (06/26/2022 8:46 PM EST) Ventricular rate 136 BPM MUSE SYSTEM Atrial Rate 136 BPM MUSE SYSTEM P-R Interval 126 ms MUSE SYSTEM QRS Duration 72 ms MUSE SYSTEM Q-T Interval 298 ms MUSE SYSTEM QTC Calculated (Bezet) 448 ms MUSE SYSTEM Calculated P [place] 35 degrees MUSE SYSTEM Calculated R [place] 7 degrees MUSE SYSTEM Calculated T [place] 52 degrees MUSE SYSTEM INTERPRETATION Sinus tachycardia Abnormal ECG Confirmed by Altagracia Palomo ([id number]) on 06/27/2022 3:21:46 PM MUSE SYSTEM 06/26/2022 8:46 PM EST 06/27/2022 3:21 PM EST Mayank Kang MD ECG ORDERABLES Performing Organization Address [facility] Co de Phone Number MUSE SYSTEM * Differential, Automated (06/26/2022 5:38 AM EST) Neutrophils % 55.3 % [facility] Neutr Abs (ANC) 2.95 1.70 - 6.10 x10(3)/[facility] LABORATORY Lymphocytes % 34.1 % [facility] Lymphocytes Abs 1.8 0.9 - 3.2 x10(3)/[facility] LABORATORY Monocytes % 8.1 % [facility] Monocyte Abs 0.4 0.3 - 0.9 x10(3)/[facility] LABORATORY Eosinophils % 1.7 % [facility] Eosinophils Abs 0.1 0.0 - 0.4 x10(3)/[facility] LABORATORY Basophils % 0.6 % [facility] Basophils Abs 0.0 0.0 - 0.1 x10(3)/[facility] LABORATORY Immature Gran % 0.20 % [facility] Comment: Immature granulocytes(IG's)percentage and absolute count will include metamyelocytes, myelocytes, and promyelocytes. Blood smears from CBCs yielding IG's will be scanned manually for concordance. If this scan disagrees with the automated IG or if promyelocytes are noted, a manual differential will be performed. Debora Gran Abs 0.01 0.00 - 0.04 x10(3)/[facility] LABORATORY Blood 06/26/2022 5:38 AM EST 06/26/2022 6:21 AM EST Narrative Resulting Agency Comment Spec In Lab Eddi Vázquez MD HEMATOLOGY ORDERABLE S [facility] [place] [address] * (ABNORMAL) Hemogram (06/26/2022 5:38 AM EST) WBC 5.3 4.0 - 9.5 x10(3)/[facility] LABORATORY RBC 4.30 4.00 - 5.21 x10(6)/[facility] LABORATORY Hemoglobin 10.1(L) 11.7 - 15.5 g/dL [facility] Hematocrit 33.5(L) 35.7 - 45.8 % [facility] MCV 77.9(L) 82.6 - 94.4 fL [facility] MCH 23.5(L) 27.1 - 32.0 pg [facility] MCHC 30.1(L) 31.7 - 35.0 g/dL [facility] Platelets 467(H) 145 - 357 x10(3)/[facility] LABORATORY RDWSD 50.8(H) 37.0 - 46.0 fL [facility] RDWCV 18.1(H) 11.5 - 14.1 % [facility] MPV 9.4 7.6 - 12.9 fL [facility] nRBC % Auto 0.0 % [facility] nRBC Abs Auto 0.000 0.000 - 0.000 x10(3)/[facility] LABORATORY Blood 06/26/2022 5:38 AM EST 06/26/2022 6:21 AM EST Narrative Resulting Agency Comment Spec In Lab Eddi Vázquez MD HEMATOLOGY ORDERABLE S [facility] [place] [address] * (ABNORMAL) Basic Metabolic Panel (non-fasting) (06/26/2022 5:38 AM EST) Glucose Lvl 97 65 - 199 mg/dL [facility] Comment:Diabetes: >=200 mg/d L plus symptoms BUN 12 8 - 18 mg/dL [facility] Creatinine 0.28(L) 0.70 - 1.20 mg/dL [facility] Sodium 141 135 - 145 mmol/L [facility] Potassium 4.2 3.5 - 5.0 mmol/L [facility] Comment: Please note: ??Patients with WBC >100,000 may have falsely elevated Potassium levels. ??For accurate Potassium quantification in these patients send serum separator tube (gold top) for subsequent determinations. ??Contact the Clinical Chemistry Laboratory if there are any questions. Chloride 103 98 - 107 mmol/L [facility] CO2 26 22 - 31 mmol/L [facility] Anion Gap 12 5 - 15 mmol/L [facility] Calcium 9.3 8.5 - 10.5 mg/dL [facility] Estimated GFR 150 >=60 mL/min/1. 73 m?? [facility] Comment: This patient's estimated GFR [...] and symptoms in addition to eGFR. Blood 06/26/2022 5:38 AM EST 06/26/2022 6:21 AM EST Narrative Resulting Agency Comment Spec In Lab Eddi Vázquez MD CHEMISTRY ORDERABLES [facility] [place] [place] [address] * IR All Drainage Procedures (06/25/2022 4:45 PM EST) Anatomical Region Laterality Modality X-Ray Angiograph y Narrative 06/26/2022 6:57 AM EST Preoperative Diagnosis: Paraspinal fluid collections, possible abscess. Postoperative Diagnosis: Superior collection appears to be old blood. ??The more inferior collection drained purulent material, and a drain was placed. Procedure Performed: Ultrasound-guided aspiration of superior paraspinal fluid collection. Ultrasound-guided aspiration and drain placement of more inferior paraspinal fluid collection. Operators: Mich Martino MD, Attending Estimated Blood Loss: Less than 25 cc. Fluoroscopy time: ?? Please see [facility] IR technologist record for procedural dose/time. Cefazolin/ cefuroxime was not ordered for antimicrobial prophylaxis as it is not indicated or strongly backed by the medical literature. Anesthesia: 1. Conscious sedation with titrated ??Versed during continuous hemodynamic monitoring including pulse oximetry, heart rate and blood pressure was provided by an independent qualified trained Nurse. ?? I was present during the intraservice time as documented by the IR Nurse. ??Please see nursing notes for exact medication dosages. 2. 1% lidocaine, local. The risks, benefits, and alternatives to the procedure were explained to the patient's family, who then gave written consent which was placed in the chart. ??The patient could not give informed consent at this time due to current medical condition. Appropriate time-out was performed prior to the procedure. Description of Procedure: ??All elements of maximal sterile barrier technique were met including cap, mask, sterile gown, sterile gloves, large sterile sheet, hand hygiene and 2% chlorhexidine for cutaneous antisepsis. The lumbar region was prepped and draped in the usual sterile fashion. ?? Local anesthetic was administered. ? Using ultrasound guidance, an 18-gauge needle was advanced into the superior paraspinal fluid collection. ??Only a very small amount of liquid could be aspirated and appeared to be old blood. ??This was sent for labs. Using ultrasound guidance, an 18-gauge needle was advanced into the more inferior paraspinal fluid collection. ??This demonstrated shiraz pus, a sample of which was sent for Gram stain and culture. ??A stiff wire was then advanced into this collection, and the needle was removed over the wire. ??The tract was dilated, and an 8 Italian drain was advanced over the wire into the fluid collection. ??This drain was sutured into position. ?? The drain was attached to bulb suction. The patient tolerated the procedure well. Findings: The more superior paraspinal collection appears to be old blood. The more inferior collection appeared purulent, and a drain was placed. Impression: Uneventful aspiration of more superior paraspinal fluid collection. ??The inferior collection aspiration demonstrated shiraz pus, and an 8 Italian drain was placed using ultrasound guidance as above. I, the attending Interventional Radiologist performed the entire procedure. ?? Eddi Vázquez MD IM IR ORDERABLES * Anaerobic Culture (06/25/2022 3:12 PM EST) Anaerobic Culture No anaerobic organisms isolated [facility] Fluid 06/25/2022 3:12 PM EST 06/25/2022 5:21 PM EST Comment:Inferior spinal flui d collection Narrative Resulting Agency Comment Spec In Lab Anurag Call DO MICROBIOLOGY - GENER AL ORDERABLES Performing Organization Address City/[facility] Co de Phone Number [facility] [place] [address] * Body Fluid Culture, Aerobic (06/25/2022 3:12 PM EST) Body Fluid Culture No growth [facility] Gram Stain Many Neutrophils seen No microorganisms seen. [facility] Fluid 06/25/2022 3:12 PM EST 06/25/2022 5:21 PM EST Comment:Inferior spinal flui d collection Narrative Resulting Agency Comment Spec In Lab Anurag Call MICROBIOLOGY - GENER AL ORDERABLES Performing Organization Address [facility] Co de Phone Number [facility] [place] [address] * Anaerobic Culture (06/25/2022 3:11 PM EST) Anaerobic Culture No anaerobic organisms isolated [facility] Fluid 06/25/2022 3:11 PM EST 06/25/2022 5:21 PM EST Comment:Superior spinal flui d collection Narrative Resulting Agency Comment Spec In Lab Anurag Call MICROBIOLOGY - GENER AL ORDERABLES Performing Organization Address [facility] Co de Phone Number [facility] [place] [address] * Body Fluid Culture, Aerobic (06/25/2022 3:11 PM EST) Body Fluid Culture No growth [facility] Gram Stain Many Neutrophils seen No microorganisms seen. [facility] Fluid 06/25/2022 3:11 PM EST 06/25/2022 5:21 PM EST Comment:Superior spinal flui d collection Narrative Resulting Agency Comment Spec In Lab Anurag Call MICROBIOLOGY - GENER AL ORDERABLES Performing Organization Address City/[facility]/ZIP Co de Phone Number [facility] [place] [address] * Blood culture (06/25/2022 8:55 AM EST) Blood Culture No growth at 5 days. [facility] Blood Pediatric STRUCTURE OF RIGHT HAND / Unknown 06/25/2022 8:55 AM EST 06/25/2022 9:16 AM EST Comment:#2 Narrative Resulting Agency Comment Spec In Lab Eddi Vázquez MD MICROBIOLOGY - BLOOD ORDERABLES Performing Organization Address City/[facility]/ZIP Co de Phone Number [facility] [place] [address] * Blood culture (06/25/2022 8:55 AM EST) Blood Culture No growth at 5 days. [facility] Blood Pediatric STRUCTURE OF RIGHT UPPER LIMB / Unknown 06/25/2022 8:55 AM EST 06/25/2022 9:16 AM EST Comment:#1 upper Narrative Resulting Agency Comment Spec In Lab Eddi Vázquez MD MICROBIOLOGY - BLOOD ORDERABLES Performing Organization Address City/[facility]/ZIP Co de Phone Number [facility] [place] [address] * Differential, Automated (06/25/2022 2:20 AM EST) Neutrophils % 60.4 % [facility] Neutr Abs (ANC) 4.34 1.70 - 6.10 x10(3)/[facility] LABORATORY Lymphocytes % 30.3 % [facility] Lymphocytes Abs 2.2 0.9 - 3.2 x10(3)/[facility] LABORATORY Monocytes % 7.2 % [facility] Monocyte Abs 0.5 0.3 - 0.9 x10(3)/[facility] LABORATORY Eosinophils % 1.4 % [facility] Eosinophils Abs 0.1 0.0 - 0.4 x10(3)/[facility] LABORATORY Basophils % 0.6 % [facility] Basophils Abs 0.0 0.0 - 0.1 x10(3)/[facility] LABORATORY Immature Gran % 0.10 % [facility] Comment: Immature granulocytes(IG's)percentage and absolute count will include metamyelocytes, myelocytes, and promyelocytes. Blood smears from CBCs yielding IG's will be scanned manually for concordance. If this scan disagrees with the automated IG or if promyelocytes are noted, a manual differential will be performed. Debora Gran Abs 0.01 0.00 - 0.04 x10(3)/[facility] LABORATORY Blood 06/25/2022 2:20 AM EST 06/25/2022 2:26 AM EST Narrative Resulting Agency Comment Spec In Lab Eddi Vázquez MD HEMATOLOGY ORDERABLE S Performing Organization Address City/State/[facility] Co de Phone Number [facility] [address] * (ABNORMAL) Hemogram (06/25/2022 2:20 AM EST) WBC 7.2 4.0 - 9.5 x10(3)/[facility] LABORATORY RBC 4.06 4.00 - 5.21 x10(6)/[facility] LABORATORY Hemoglobin 9.8(L) 11.7 - 15.5 g/dL [facility] Hematocrit 30.7(L) 35.7 - 45.8 % [facility] MCV 75.6(L) 82.6 - 94.4 fL [facility] MCH 24.1(L) 27.1 - 32.0 pg [facility] MCHC 31.9 31.7 - 35.0 g/dL [facility] Platelets 437(H) 145 - 357 x10(3)/[facility] LABORATORY RDWSD 48.7(H) 37.0 - 46.0 fL [facility] RDWCV 17.9(H) 11.5 - 14.1 % [facility] MPV 8.9 7.6 - 12.9 fL [facility] nRBC % Auto 0.0 % [facility] nRBC Abs Auto 0.000 0.000 - 0.000 x10(3)/mcL [facility] Blood 06/25/2022 2:20 AM EST 06/25/2022 2:26 AM EST Narrative Resulting Agency Comment Spec In Lab Eddi Vázquez MD HEMATOLOGY ORDERABLE S [facility] [place] [address] * (ABNORMAL) Basic Metabolic Panel (non-fasting) (06/25/2022 2:20 AM EST) Glucose Lvl 97 65 - 199 mg/dL [facility] Comment:Diabetes: >=200 mg/d L plus symptoms BUN 9 8 - 18 mg/dL [facility] Creatinine 0.30(L) 0.70 - 1.20 mg/dL [facility] Sodium 140 135 - 145 mmol/L [facility] Potassium 4.1 3.5 - 5.0 mmol/L [facility] Comment: Please note: ??Patients with WBC >100,000 may have falsely elevated Potassium levels. ??For accurate Potassium quantification in these patients send serum separator tube (gold top) for subsequent determinations. ??Contact the Clinical Chemistry Laboratory if there are any questions. Chloride 103 98 - 107 mmol/L [facility] CO2 27 22 - 31 mmol/L [facility] Anion Gap 10 5 - 15 mmol/L [facility] Calcium 9.4 8.5 - 10.5 mg/dL [facility] Estimated GFR 147 >=60 mL/min/1. 73 m?? [facility] Comment: This patient's estimated GFR [...] and symptoms in addition to eGFR. Blood 06/25/2022 2:20 AM EST 06/25/2022 2:26 AM EST Narrative Resulting Agency Comment Spec In Lab Eddi Vázquez MD CHEMISTRY ORDERABLES [facility] [place] [address] * CT Lumbar Spine w Contrast (06/24/2022 6:27 PM EST) Anatomical Region Laterality Modality L-spine Computed Tomogra phy Impressions 06/24/2022 6:56 PM EST There are 2 irregular collections within the posterior subcutaneous fat of the lumbar region. The more superior collection appears to have deep extension to the level of the L1 and L2 lamina on the left side, but evaluation is marred by artifact. Findings are nonspecific, but infected collection is a possibility. Denser soft tissue collection centered about the dislocated right iliac screw was present on prior study but better visualized on current study. This may represent a chronic organized hematoma. Thank you for letting us participate in the care of this patient. ??If you are a health care provider and have any questions regarding this report, please contact the number below. ??For patients who have questions please contact the health critical care specialist that requested your imaging first. ? Electronically signed by: Jamaal Villafuerte [facility] ([phone]), at 06/24/2022 6:56 PM Narrative 06/24/2022 6:56 PM EST EXAMINATION: CT LUMBAR SPINE W CONTRAST CLINICAL HISTORY: Low back pain, infection suspected; Patient had ultrasound done at outside facility on 06/17/2022 which showed a fluid collection around the L-spine could not rule out abscess TECHNIQUE: CT lumbar spine performed after the intravenous administration of contrast. Administered 65.0 ml of OMNIPAQUE 350.00 mg/ml. COMPARISON: Neck ultrasound dated 06/19/2022. CT lumbar spine 05/26/2014. Lumbar spine x-ray 06/17/2022. FINDINGS: Severe dextroscoliosis of the lumbar spine is again identified with rods and screws. Pedicle screws at L1-L4 again identified. As seen previously the metallic hardware is intact with the exception of the dislocated screw traversing the right iliac bone. Laminar wires identified within the visualized lower thoracic spine. Irregular low-density collection within the left paramedian, posterior subcutaneous fat of the mid lumbar region likely corresponds to the collection identified on the recent ultrasound. This collection extends to the skin surface and measures 4.9 cm AP, 3.2 cm transverse and 6.0 cm craniocaudal. Deep extension is not identified. Minimal rim enhancement. There is a second, more superior collection within the left paramedian posterior subcutaneous fat at T12-L1 level that may communicate with the collection described above. This collection appears to have deep extension to the level of the left L1 and L2 lamina, but evaluation is marred by hardware artifact. This collection also appears to extend to the skin surface as identified on series 5, image 60. Minimal rim enhancement. A separate, denser soft tissue collection centered about the dislocated right iliac screw was likely present previously but better visualized on the current study. This finding is identified on series 5, image 127 through 158. Procedure Note Jamaal Villafuerte MD - 06/24/2022 EXAMINATION: CT LUMBAR SPINE W CONTRAST CLINICAL HISTORY: Low back pain, infection suspected; Patient hadultrasound done at outside facility on 06/17/2022 which showed a fluid collectionaround the L-spine could not rule out abscess TECHNIQUE: CT lumbar spine performed after the intravenous administration ofcontrast. Administered 65.0 ml of OMNIPAQUE 350.00 mg/ml. COMPARISON: Neck ultrasound dated 06/19/2022. CT lumbar spine 05/26/2014. Lumbar spinex-ray 06/17/2022. FINDINGS: Severe dextroscoliosis of the lumbar spine is again identified with rodsand screws. Pedicle screws at L1-L4 again identified. As seen previously the metallic hardware is intact with the exception of the dislocated screw traversing the right iliac bone. Laminar wires identified within thevisualized lower thoracic spine. Irregular low-density collection within the left paramedian, posterior subcutaneous fat of the mid lumbar region likely corresponds to thecollection identified on the recent ultrasound. This collection extends to the skinsurface and measures 4.9 cm AP, 3.2 cm transverse and 6.0 cm craniocaudal. Deep extension is not identified. Minimal rim enhancement. There is a second, more superior collection within the left paramedianposterior subcutaneous fat at T12-L1 level that may communicate with thecollection described above. This collection appears to have deep extension to thelevel of the left L1 and L2 lamina, but evaluation is marred by hardware artifact.This collection also appears to extend to the skin surface as identified onseries 5, image 60. Minimal rim enhancement. A separate, denser soft tissue collection centered about the dislocatedright iliac screw was likely present previously but better visualized on thecurrent study. This finding is identified on series 5, image 127 through 158. IMPRESSION There are 2 irregular collections within the posterior subcutaneous fat ofthe lumbar region. The more superior collection appears to have deep extensionto the level of the L1 and L2 lamina on the left side, but evaluation ismarred by artifact. Findings are nonspecific, but infected collection is apossibility. Denser soft tissue collection centered about the dislocated right iliacscrew was present on prior study but better visualized on current study. Thismay represent a chronic organized hematoma. Thank you for letting us participate in the care of this patient. If youare a health care provider and have any questions regarding this report,please contact the number below. For patients who have questions please contactthe health critical care specialist that requested your imaging first. Electronically signed by: Jamaal Villafuerte [facility]([phone]), at 06/24/2022 6:56 PM Annabella uGdinoharlanbrittnee GEODETIC ENGINEER IMG CT ORDERABLES * Differential, Automated (06/24/2022 4:23 PM EST) Neutrophils % 63.2 % [facility] Neutr Abs (ANC) 4.29 1.70 - 6.10 x10(3)/[facility] Lymphocytes % 29.4 % [facility] Lymphocytes Abs 2.0 0.9 - 3.2 x10(3)/[facility] Monocytes % 4.6 % [facility] Monocyte Abs 0.3 0.3 - 0.9 x10(3)/[facility] Eosinophils % 1.8 % [facility] Eosinophils Abs 0.1 0.0 - 0.4 x10(3)/[facility] Basophils % 0.7 % [facility] Basophils Abs 0.0 0.0 - 0.1 x10(3)/[facility] Immature Gran % 0.30 % [facility] Comment: Immature granulocytes(IG's)percentage and absolute count will include metamyelocytes, myelocytes, and promyelocytes. Blood smears from CBCs yielding IG's will be scanned manually for concordance. If this scan disagrees with the automated IG or if promyelocytes are noted, a manual differential will be performed. Debora Gran Abs 0.02 0.00 - 0.04 x10(3)/[facility] Blood 06/24/2022 4:23 PM EST 06/24/2022 4:38 PM EST Narrative Resulting Agency Comment Spec In Lab Kvng SIMMS HEMATOLOGY ORDERABL ES [facility] [place] [address] * (ABNORMAL) Hemogram (06/24/2022 4:23 PM EST) WBC 6.8 4.0 - 9.5 x10(3)/[facility] RBC 4.40 4.00 - 5.21 x10(6)/[facility] Hemoglobin 10.5(L) 11.7 - 15.5 g/dL [facility] [place]ematocrit 33.6(L) 35.7 - 45.8 % [facility] MCV 76.4(L) 82.6 - 94.4 fL [facility] MCH 23.9(L) 27.1 - 32.0 pg [facility] MCHC 31.3(L) 31.7 - 35.0 g/dL [facility] Platelets 516(H) 145 - 357 x10(3)/[facility] [place] [facility] RDWSD 48.5(H) 37.0 - 46.0 [facility] RDWCV 17.8(H) 11.5 - 14.1 % [facility] MPV 9.0 7.6 - 12.9 [facility] nRBC % Auto 0.0 % [facility] nRBC Abs Auto 0.000 0.000 - 0.000 x10(3)/[facility] Blood 06/24/2022 4:23 PM EST 06/24/2022 4:38 PM EST Narrative Resulting Agency Comment Spec In Lab Kvng SIMMS HEMATOLOGY ORDERABL ES [facility] [place] [address] * (ABNORMAL) Sedimentation rate (06/24/2022 4:23 PM EST) Sed Rate >119(H) 2 - 37 mm/hr [facility] Comment: Effective April 06, 2019 new capillary photometric technology has resulted in a change in reference ranges. It is recommended that each ESR result be reviewed with its own age appropriate reference range. Blood 06/24/2022 4:23 PM EST 06/24/2022 4:38 PM EST Narrative Resulting Agency Comment Spec In Lab Gaby Robert MD HEMATOLOGY ORDERABLE S Performing Organization Address City/[facility]/ZIP Co de Phone Number [facility] [place] [address] * (ABNORMAL) CRP, acute inflammation (06/24/2022 4:23 PM EST) CRP 96.9(H) <=4.9 mg/L [facility] Blood 06/24/2022 4:23 PM EST 06/24/2022 4:38 PM EST Narrative Resulting Agency Comment Spec In Lab Gaby Robert MD CHEMISTRY ORDERABLES Performing Organization Address [facility] Co de Phone Number [facility] [place] [address] * (ABNORMAL) Basic Metabolic Panel (non-fasting) (06/24/2022 4:23 PM EST) Glucose Lvl 97 65 - 199 mg/dL [facility] Comment:Diabetes: >=200 mg/d L plus symptoms BUN 9 8 - 18 mg/dL [facility] Creatinine 0.26(L) 0.70 - 1.20 mg/dL [facility] Sodium 143 135 - 145 mmol/L [facility] Potassium 3.9 3.5 - 5.0 mmol/L [facility] Comment: Please note: ??Patients with WBC >100,000 may have falsely elevated Potassium levels. ??For accurate Potassium quantification in these patients send serum separator tube (gold top) for subsequent determinations. ??Contact the Clinical Chemistry Laboratory if there are any questions. Chloride 104 98 - 107 mmol/L [facility] CO2 27 22 - 31 mmol/L [facility] Anion Gap 12 5 - 15 mmol/L [facility] Calcium 10.0 8.5 - 10.5 mg/dL [facility] Estimated GFR 152 >=60 mL/min/1. 73 m?? [facility] Comment: This patient's estimated GFR [...] and symptoms in addition to eGFR. Blood 06/24/2022 4:23 PM EST 06/24/2022 4:38 PM EST Narrative Resulting Agency Comment Spec In Lab Gaby Robert MD CHEMISTRY ORDERABLES [facility] [place] [place] [address] documented in this encounter Visit Diagnoses Diagnosis 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- Primary Acute osteomyelitis, other specified site 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 Acute osteomyelitis, other specified site Tachycardia Tachycardia, unspecified Bacteremia documented in this encounter Admitting Diagnoses Diagnosis 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 Acute osteomyelitis, other specified site documented in this encounter Administered Medications Inactive Administered Medications - up to 3 most recent administrations Medication Order MAR Action Action Date Dose Rate Site acetaminophen (Tylenol) tablet 500 mg 500 mg, Oral, EVERY 4 HOURS PRN, Starting on Thu06/25/22 at 1724, Until Thu07/09/22 at 1229, Pain, Fever, Maximum dose of acetaminophen is 4,000 mg from all sources in 24 hours. When ordered for pain, acetaminophen should be given even when other ordered pain medications are indicated. , Routine Given 07/06/2022 1:35 PM EDT 500 mg Given 07/04/2022 1:41 PM EST 500 mg Given 07/04/2022 8:09 AM EST 500 mg baclofen (Lioresal) tablet 10 mg 10 mg, Oral, ONCE, 1 dose, On Tu06/24/22 at 2103, STAT Given 06/24/2022 9:05 PM EST 10 mg baclofen (Lioresal) tablet 10 mg 10 mg, Oral, 2 TIMES DAILY, First dose on Thu06/25/22 at 0900, Until Discontinued, Routine Given 07/09/2022 8:40 AM EDT 10 mg Given 07/08/2022 8:01 PM EDT 10 mg Given 07/08/2022 9:42 AM EDT 10 mg benzonatate (Tessalon) capsule 100 mg 100 mg, Oral, 3 TIMES DAILY PRN, Starting on Thu07/01/22 at 2206, Until Thu07/09/22 at 1229, Cough, or sore throat, DO NOT CRUSH OR OPEN, Routine bisacodyL (Dulcolax) suppository 10 mg 10 mg, Rectal, DAILY PRN, Starting on Thu06/29/22 at 1733, Until Thu07/09/22 at 1229, Constipation, Routine Given 06/29/2022 5:41 PM EST 10 mg ceFEPime (Maxipime) 2g vial attach to sodium chloride 0.9% 100 mL Mini-Bag Plus 2 g 2 g, Intravenous, EVERY 8 HOURS, First dose on Thu07/04/22 at 0045, Until Discontinued, Administer over 3 Hours, Indication for (Active or Suspected): Bone/Joint New Bag 07/04/2022 8:12 AM EST 2 g 33.3 mL/ hr New Bag 07/04/2022 2:30 AM EST 2 g 33.3 mL/hr ceFEPime (Maxipime) 2g vial attach to sodium chloride 0.9% 100 mL Mini-Bag Plus 2 g 2 g, Intravenous, EVERY 8 HOURS, First dose on Thu07/04/22 at 1745, Until Discontinued, Administer over 3 Hours, Indication for (Active or Suspected): Bacteremia/Sepsis New Bag 07/06/2022 9:22 AM EDT 2 g 3 3.3 mL/hr New Bag 07/06/2022 3:14 AM EDT 2 g 33.3 mL/hr New Bag 07/05/2022 4:54 PM EST 2 g 33.3 mL/hr cefTRIAXone (Rocephin) 2 g vial attach to sodium chloride 0.9% 50 mL Mini-Bag Plus 2 g, Intravenous, EVERY 24 HOURS, 3 doses, First dose on Thu07/06/22 at 1500, Last dose on Thu07/08/22 at 1500, Administer over 30 Minutes, Indication for (Active or Suspected): Bacteremia/Sepsis New Bag 07/08/2022 3:50 PM EDT 2 g 100 mL/hr New Bag 07/07/2022 2:24 PM EDT 2 g 100 mL/hr New Bag 07/06/2022 4:16 PM EDT 2 g 100 mL/hr enoxaparin (Lovenox) (30 mg/0.3 mL) subcutaneous injection 30 mg 30 mg, Subcutaneous, NIGHTLY, First dose on Thu06/25/22 at 2100, Until Discontinued, Routine Given 07/08/2022 8:01 PM EDT 30 mg Given 07/06/2022 8:31 PM EDT 30 mg Given 07/05/2022 8:04 PM EST 30 mg iohexoL (Omnipaque) (350 mg/mL) solution 0-200 mL 0-200 mL, Intravenous, ONCE PRN, 1 dose, Starting on Tu06/24/22 at 1820, Until Tu06/24/22 at 1820, Per Protocol, Warning Vesicant/Irritant Medication , Radiology Contrast, Routine Given 06/24/2022 6:20 PM EST 65 mLs iohexoL (Omnipaque) (350 mg/mL) solution 0-200 mL 0-200 mL, Intravenous, ONCE PRN, 1 dose, Starting on Dianne 07/03/22 at 1728, Until Dianne 07/03/22 at 1728, Per Protocol, Warning Vesicant/Irritant Medication , Radiology Contrast, Routine Given 07/03/2022 5:28 PM EST 59 mLs iohexoL (Omnipaque) (350 mg/mL) solution 0-200 mL 0-200 mL, Intravenous, ONCE PRN, 1 dose, Starting on 07/05/22 at 1603, Until 07/05/22 at 1604, Per Protocol, Warning Vesicant/Irritant Medication , Radiology Contrast, Routine Given 07/05/2022 4:04 PM EST 75 mLs iohexoL (Omnipaque) (350 mg/mL) solution 0-50 mL 0-50 mL, Oral, ONCE PRN, 1 dose, Starting on 07/05/22 at 1603, Until 07/05/22 at 1604, Per Protocol, Warning Vesicant/Irritant Medication , Radiology Contrast, Routine Given 07/05/2022 4:04 PM EST 0 mLs iohexoL (Omnipaque) (350 mg/mL) solution 1-400 mL 1-400 mL, Other, ONCE, 1 dose, On Thu07/01/22 at 1600, For intra-procedural use by proceduralist., Angio/IR (Intra-Procedure), Routine Given 07/01/2022 3:30 PM EST 3 mLs iohexoL (Omnipaque) (350 mg/mL) solution 50 mL 50 mL, Other, ONCE PRN, 1 dose, Starting on Thu07/04/22 at 1616, Until Thu07/04/22 at 1616, Per Protocol, Warning Vesicant/Irritant Medication , Routine Given 07/04/2022 4:16 PM EST 4 mLs ketorolac (Toradol) (15 mg/mL) injection 15 mg 15 mg, Intravenous, ONCE, 1 dose, On Thu07/04/22 at 1915, Routine Given 07/04/2022 6:38 PM EST 15 mg lactated Ringers 500 mL IV bolus at 500 mL/hr, Intravenous, ONCE, 1 dose, On Dianne 06/26/22 at 2130 New Bag 06/26/2022 9:01 PM EST 500 mL/hr lactated Ringers 500 mL IV bolus at 500 mL/hr, Intravenous, ONCE, 1 dose, On Thu06/27/22 at 0015 New Bag 06/26/2022 11:23 PM EST 500 mL/hr lactated Ringers 500 mL IV bolus at 500 mL/hr, Intravenous, ONCE, 1 dose, On Thu06/27/22 at 2345 New Bag 06/27/2022 10:58 PM EST 500 mL/hr lactated Ringers 500 mL IV bolus at 500 mL/hr, Intravenous, ONCE, 1 dose, On 06/28/22 at 1230 New Bag 06/28/2022 3:18 PM EST 500 mL/hr lactated Ringers 500 mL IV bolus at 500 mL/hr, Intravenous, ONCE, 1 dose, On Thu06/29/22 at 2030 New Bag 06/29/2022 8:05 PM EST 500 mL/hr lactated Ringers 500 mL IV bolus Intravenous, ONCE, 1 dose, On Thu07/02/22 at 0900 Continued Bag 07/02/2022 8:48 AM EST lactated Ringers 500 mL IV bolus at 500 mL/hr, Intravenous, ONCE, 1 dose, On Thu07/04/22 at 0045 New Bag 07/04/2022 12:27 AM EST 500 mL/hr lactated Ringers 500 mL IV bolus at 500 mL/hr, Intravenous, ONCE, 1 dose, On Thu07/04/22 at 0330 07/04/2022 3:00 AM EST 500 mL/hr lactated Ringers 500 mL IV bolus at 500 mL/hr, Intravenous, ONCE, 1 dose, On Thu07/04/22 at 0615 New Bag 07/04/2022 5:35 AM EST 500 mL/hr lactated Ringers 500 mL IV bolus Intravenous, ONCE, 1 dose, On Thu07/05/22 at 0845 Bag 07/05/2022 7:59 AM EST lactated Ringers 500 mL IV bolus at 500 mL/hr, Intravenous, ONCE, 1 dose, On Thu07/06/22 at 0730 New Bag 07/06/2022 6:47 AM EDT 500 mL/hr lactated Ringers 500 mL IV bolus Intravenous, ONCE, 1 dose, On Thu07/06/22 at 1345 07/06/2022 1:11 PM EDT 500 mL/hr lactated Ringers 500 mL IV bolus at 500 mL/hr, Intravenous, ONCE, 1 dose, On Thu07/07/22 at 0730 Bag 07/07/2022 6:30 AM EDT 500 mL/hr lactated ringers infusion 75 mL/hr, Intravenous, CONTINUOUS, Starting on Thu06/27/22 at 0200, Until Thu06/27/22 at 0859 New Bag 06/27/2022 1:42 AM EST 75 mL/hr 75 mL/hr lactated ringers infusion 50 mL/hr, Intravenous, CONTINUOUS, Starting on Thu07/01/22 at 2300, Until Thu07/02/22 at 1059 New Bag 07/01/2022 10:15 PM EST 50 mL/hr 50 mL/hr lactated ringers infusion 100 mL/hr, Intravenous, CONTINUOUS, Starting on Thu07/04/22 at 0400, Until Thu07/04/22 at 1359 New Bag 07/04/2022 9:41 AM EST 100 mL/hr 100 mL/hr Rate/Dose Change 07/04/2022 8:15 AM EST 100 mL/hr 100 mL/ hr New Bag 07/04/2022 3:59 AM EST 75 mL/hr 75 mL/hr lactated ringers infusion 100 mL/hr, Intravenous, CONTINUOUS, Starting on Thu07/04/22 at 1915, Until 07/05/22 at 0514 New Bag 07/05/2022 2:11 AM EST 100 mL/hr 100 mL/hr New Bag 07/04/2022 6:38 PM EST 100 mL/hr 100 mL/hr levoFLOXacin (Levaquin) tablet 750 mg 750 mg, Oral, EVERY MORNING, First dose on Thu07/09/22 at 0700, Until Discontinued, Routine, Indication for (Active or Suspected): Bacteremia/Sepsis, Restricted Antibiotic: Please indicate the most appropriate choice: ID Approval by Sergey Aguirre Given 07/09/2022 8:40 AM EDT 750 mg lidocaine (Xylocaine) 1% (10 mg/mL) injection 10 mg 10 mg, Subcutaneous, ONCE, 1 dose, On Thu06/25/22 at 1630, For use in Interventional Radiology (IR) only for procedure with direct provider supervision and verbal order., Angio/IR (Intra-Procedure), Routine Given 06/25/2022 4:25 PM EST 10 mg lidocaine (Xylocaine) 1% (10 mg/mL) injection 10 mg 10 mg, Subcutaneous, ONCE, 1 dose, On Thu07/04/22 at 1600, For use in Interventional Radiology (IR) only for procedure with direct provider supervision and verbal order., Angio/IR (Intra-Procedure), Routine Given 07/04/2022 3:54 PM EST 10 mg magnesium sulfate 1 g in dextrose 5% 100 mL infusion 1 g, Intravenous, ONCE, 1 dose, On Thu06/29/22 at 1230, Administer over 60 Minutes New Bag 06/29/2022 12:17 PM EST 1 g 100 mL/hr magnesium sulfate 2 g in sterile water 50 mL infusion 2 g, Intravenous, ONCE, 1 dose, On Tu07/01/22 at 2030, Administer over 120 Minutes New Bag 07/01/2022 9:57 PM EST 2 g 25 mL/hr miconazole (Micotin) 2 % powder Topical (Top), 2 TIMES DAILY, First dose on Dianne 06/26/22 at 1145, Until Discontinued Given 07/08/2022 8:01 PM EDT Given 07/08/2022 9:42 AM EDT Given 07/07/2022 8:05 PM EDT midazolam (pf) (Versed) (1 mg/mL) multi-dose injection 0.5-1 mg 0.5-1 mg, Intravenous, EVERY 3 MIN PRN, Starting on Thu06/25/22 at 1535, Until Thu06/25/22 at 1701, Sedation, For use in Interventional Radiology (IR) [...] mg/dose, 5 mg/hour., Angio/IR (Intra-Procedure), Routine Given 06/25/2022 4:28 PM EST 0.5 mg Given 06/25/2022 4:16 PM EST 0.5 mg Given 06/25/2022 4:10 PM EST 1 mg midazolam (pf) (Versed) (1 mg/mL) multi-dose injection 0.5-1 mg 0.5-1 mg, Intravenous, EVERY 3 MIN PRN, Starting on Thu07/04/22 at 1501, Until Thu07/04/22 at 1703, Sedation, For use in Interventional Radiology (IR) [...] mg/dose, 5 mg/hour., Angio/IR (Intra-Procedure), Routine Given 07/04/2022 3:46 PM EST 0.5 mg multivitamin with minerals (Thera M) tablet 1 tablet 1 tablet, Oral, DAILY, First dose on Thu06/25/22 at 0900, Until Discontinued, Routine Given 07/09/2022 8:40 AM EDT 1 tablet Given 07/08/2022 9:42 AM EDT 1 tablet Given 07/07/2022 10:27 AM EDT 1 tablet ondansetron (pf) (Zofran) (2 mg/mL) injection 4 mg 4 mg, Intravenous, EVERY 8 HOURS PRN, Starting on Dianne 07/03/22 at 2231, Until Thu07/09/22 at 1229, Nausea Given 07/08/2022 7:18 PM EDT 4 mg Given 07/07/2022 8:26 PM EDT 4 mg Given 07/06/2022 10:22 AM EDT 4 mg polyethylene glycoL (Miralax) packet 17 g 17 g, Oral, DAILY PRN, Starting on Thu07/02/22 at 0902, Until Thu07/06/22 at 1452, Constipation, Routine Given 07/02/2022 8:18 PM EST 17 g polyethylene glycoL (Miralax) packet 17 g 17 g, Oral, DAILY, First dose (after last modification) on Thu07/07/22 at 0900, Until Discontinued, Routine Given 07/09/2022 8:41 AM EDT 17 g Given 07/08/2022 9:42 AM EDT 17 g Given 07/07/2022 2:24 PM EDT 17 g prochlorperazine (Compazine) (5 mg/mL) injection 5 mg 5 mg, Intravenous, EVERY 6 HOURS PRN, Starting on Thu07/06/22 at 1354, Until Thu07/09/22 at 1229, Nausea, Vomiting, Routine Given 07/06/2022 2:14 PM EDT 5 mg senna (Senokot) tablet 17.2 mg 17.2 mg, Oral, NIGHTLY, First dose on Thu06/24/22 at 2320, Until Discontinued, Routine Given 06/28/2022 8:42 PM EST 17.2 mg Given 06/27/2022 8:40 PM EST 17.2 mg Given 06/26/2022 8:15 PM EST 17.2 mg senna-docusate (Pericolace) 8.6-50 mg per tablet 1 tablet 1 tablet, Oral, 2 TIMES DAILY, First dose on Thu06/29/22 at 2100, Until Discontinued, Routine Given 07/02/2022 8:51 AM EST 1 tablet Given 07/01/2022 9:50 PM EST 1 tablet Given 07/01/2022 8:59 AM EST 1 tablet senna-docusate (Pericolace) 8.6-50 mg per tablet 2 tablet 2 tablet, Oral, 2 TIMES DAILY, First dose (after last modification) on Thu07/02/22 at 2100, Until Discontinued, Routine Given 07/09/2022 8:40 AM EDT 2 tablets Given 07/08/2022 8:01 PM EDT 2 tablets Given 07/07/2022 8:04 PM EDT 2 tablets sodium chloride 0.9 % (flush) (BD PosiFlush Normal Saline 0.9) flush 5 mL 5 mL, Intravenous, 2 TIMES DAILY, First dose on Thu06/24/22 at 2320, Until Discontinued, Routine Given 07/09/2022 8:52 AM EDT 5 mLs Given 07/08/2022 8:06 PM EDT 5 mLs Given 07/08/2022 9:42 AM EDT 5 mLs sodium chloride 0.9% 500 mL IV bolus at 250 mL/hr, Intravenous, ONCE, 1 dose, On Thu07/01/22 at 1215 New 07/01/2022 11:28 AM EST 250 mL/hr sodium chloride 0.9% 500 mL IV bolus at 250 mL/hr, Intravenous, ONCE, 1 dose, On Thu07/06/22 at 1815 07/06/2022 5:32 PM EDT 250 mL/hr sodium chloride 0.9% infusion 100 mL/hr, Intravenous, CONTINUOUS, Starting on Thu07/06/22 at 1500, Until Thu07/06/22 at 1812 07/06/2022 4:17 PM EDT 100 mL/hr 100 mL/hr sodium chloride 0.9% infusion 150 mL/hr, Intravenous, CONTINUOUS, Starting on Thu07/06/22 at 1815, Until Thu07/07/22 at 0414 07/06/2022 10:20 PM EDT 150 mL/hr 150 mL/hr 07/06/2022 6:55 PM EDT 150 mL/hr 150 mL/hr sodium phosphates (FLEET) 19-7 gram/118 mL rectal enema 1 Bottle 1 Bottle, Rectal, ONCE, 1 dose, On Thu06/29/22 at 2000, Routine Given 06/29/2022 8:05 PM EST 1 Bottle vancomycin (Vancocin) 1 gram in sodium chloride 0.9% 250 mL infusion 1,000 mg, Intravenous, at 250 mL/hr, ONCE, 1 dose, On Thu07/04/22 at 0045, Maximum infusion rate is 1 gram/hour. If flushing of the face, neck, upper body, arms, and/or back occurs decrease infusion rate by 50% to reduce the severity of symptoms. This medication may have an associated drug lab level. Please see MAR for scheduled level. Warning Vesicant/Irritant Medication , Routine New Bag 07/04/2022 1:17 AM EST 1,000 mg 250 mL/hr vancomycin (Vancocin) 750 mg in sodium chloride 0.9% 250 mL infusion 750 mg, Intravenous, at 333.3 mL/hr, EVERY 8 HOURS, First dose (after last modification) on Thu07/04/22 at 0900, Until Discontinued, Maximum infusion rate is 1 gram/hour. If flushing of the face, neck, upper body, arms, and/or back occurs decrease infusion rate by 50% to reduce the severity of symptoms. This medication may have an associated drug lab level. Please see MAR for scheduled level. Warning Vesicant/Irritant Medication , Routine New Bag 07/04/2022 9:40 AM EST 750 mg 333.3 mL/hr documented in this encounter Active and Recently Administered Medications Times are shown in EDT. Scheduled Medication Order 07/07/2022 07/08/2022 07/09/2022 baclofen (Lioresal) tablet 10 mg 10 mg, Oral, 2 TIMES DAILY, First dose on Thu06/25/22 at 0900, Until Discontinued, Routine 1022 (Given - Provider: Vi Bonds RN)2003 (Given - Provider: Diandra Luo) 0942 (Given - Provider: Vi Bonds RN)2000 (Given - Provider: Will Vitale LPN) 0840 (Given - Provider: Jigna Neal RN) cefTRIAXone (Rocephin) 2 g vial attach to sodium chloride 0.9% 50 mL Mini-Bag Plus (COMPLETED) 2 g, Intravenous, EVERY 24 HOURS, 3 doses, First dose on Thu07/06/22 at 1500, Last dose on Thu07/08/22 at 1500, Administer over 30 Minutes, Indication for (Active or Suspected): Bacteremia/Sepsis 1424 (New Bag - Provider: Vi Bonds RN)1454 (Stopped - Provider: Vi Bonds RN) 1550 (New Bag - Provider: Vi Bonds RN)1620 (Stopped - Provider: Vi Bonds RN) enoxaparin (Lovenox) (30 mg/0.3 mL) subcutaneous injection 30 mg 30 mg, Subcutaneous, NIGHTLY, First dose on Thu06/25/22 at 2100, Until Discontinued, Routine 2100 (Not Given - Provider: Janna Dennison RN - Reason: Patient/family refused) 2000 (Given - Provider: Will Vitale LPN) lactated Ringers 500 mL IV bolus (COMPLETED) at 500 mL/hr, Intravenous, ONCE, 1 dose, On Thu07/07/22 at 0730 0630 (New Bag - Provider: Vi Bonds RN)0730 (Stopped - Provider: Vi Bonds RN) levoFLOXacin (Levaquin) tablet 750 mg 750 mg, Oral, EVERY MORNING, First dose on Thu07/09/22 at 0700, Until Discontinued, Routine, Indication for (Active or Suspected): Bacteremia/Sepsis, Restricted Antibiotic: Please indicate the most appropriate choice: ID Approval by Sergey Aguirre 0840 (Given - Provider: Jigna Neal RN) miconazole (Micotin) 2 % powder Topical (Top), 2 TIMES DAILY, First dose on Thu06/26/22 at 1145, Until Discontinued 1031 (Given - Provider: Vi Bonds RN)2004 (Given - Provider: Diandra Luo) 0942 (Given - Provider: Vi Bonds RN)2000 (Given - Provider: Will Vitale LPN) 0900 (Not Given - Provider: Jigna Neal RN - Reason: Patient/family refused) multivitamin with minerals (Thera M) tablet 1 tablet 1 tablet, Oral, DAILY, First dose on Thu06/25/22 at 0900, Until Discontinued, Routine 1027 (Given - Provider: Vi Bonds RN) 0942 (Given - Provider: Vi Bonds RN) 0840 (Given - Provider: Jigna Neal RN) polyethylene glycoL (Miralax) packet 17 g 17 g, Oral, DAILY, First dose (after last modification) on Thu07/07/22 at 0900, Until Discontinued, Routine 1424 (Given - Provider: Vi Bonds RN) 0942 (Given - Provider: Vi Bonds RN) 0841 (Given - Provider: Jigna Neal RN) senna-docusate (Pericolace) 8.6-50 mg per tablet 2 tablet 2 tablet, Oral, 2 TIMES DAILY, First dose (after last modification) on Thu07/02/22 at 2100, Until Discontinued, Routine 0900 (Not Given - Provider: Vi Bonds RN - Reason: Patient/family refused)2003 (Given - Provider: Diandra Luo) 0942 (Not Given - Provider: Vi Bonds RN - Reason: Patient/family refused)2000 (Given - Provider: Will Vitale LPN) 0840 (Given - Provider: Jigna Neal RN) sodium chloride 0.9 % (flush) (BD PosiFlush Normal Saline 0.9) flush 5 mL 5 mL, Intravenous, 2 TIMES DAILY, First dose on Thu06/24/22 at 2320, Until Discontinued, Routine 1032 (Given - Provider: Vi Bonds RN)2004 (Given - Provider: Diandra Luo) 0942 (Given - Provider: Vi Bonds RN)2005 (Given - Provider: Will Vitale LPN) 0852 (Given - Provider: Jigna Neal RN) PRN Medication Order 07/07/2022 07/08/2022 07/09/2022 acetaminophen (Tylenol) tablet 500 mg 500 mg, Oral, EVERY 4 HOURS PRN, Starting on Thu06/25/22 at 1724, Until Thu07/09/22 at 1229, Pain, Fever, Maximum dose of acetaminophen is 4,000 mg from all sources in 24 hours. When ordered for pain, acetaminophen should be given even when other ordered pain medications are indicated. , Routine benzonatate (Tessalon) capsule 100 mg 100 mg, Oral, 3 TIMES DAILY PRN, Starting on Thu07/01/22 at 2206, Until Thu07/09/22 at 1229, Cough, or sore throat, DO NOT CRUSH OR OPEN, Routine bisacodyL (Dulcolax) suppository 10 mg 10 mg, Rectal, DAILY PRN, Starting on 06/29/22 at 1733, Until Thu07/09/22 at 1229, Constipation, Routine lidocaine (Xylocaine) 1% (10 mg/mL) injection 3 mg 3 mg (0.3 mL), Subcutaneous, ONCE PRN, 1 dose, Starting on 06/24/22 at 2318, Until Thu07/09/22 at 1229, for discomfort with PIV insertion, Routine ondansetron (pf) (Zofran) (2 mg/mL) injection 4 mg 4 mg, Intravenous, EVERY 8 HOURS PRN, Starting on Dianne 07/03/22 at 2231, Until Thu07/09/22 at 1229, Nausea 2025 (Given - Provider: Diandra Luo) 1917 (Given - Provider: Vi Bonds RN) prochlorperazine (Compazine) (5 mg/mL) injection 5 mg 5 mg, Intravenous, EVERY 6 HOURS PRN, Starting on 07/06/22 at 1354, Until Thu07/09/22 at 1229, Nausea, Vomiting, Routine sodium chloride 0.9 % (flush) (BD PosiFlush Normal Saline 0.9) flush 5-20 mL 5-20 mL, Intravenous, EVERY 1 MIN PRN, Starting on 06/24/22 at 2318, Until Thu07/09/22 at 1229, flush, Flush pertains to all indwelling lines. Flush per protocol found in the job aid using the link provided on this medication record., Routine documented in this encounter Additional Health Concerns Infection Onset Date Last Indicated Resolved Time Rule Out Respiratory 06/28/2022 06/28/2022 023 5:38 PM EST Rule Out COVID-19 06/28/2022 06/28/2022 06/28/2022 5:38 PM EST Parainfluenza Virus 06/28/2022 06/28/2022 07/10/19 8:09 PM EDT documented as of this encounter Care Teams Supervisor Opening And Picking Relationship Specialty Start Date End Date Lorna Bal APRN [address] [place] [address] PCP - General Family Medicine 05/27/18 documented as of this encounter
--- OUTSIDE RECORDS SUMMARY | 2023-11-09 18:15 | XMS_ITS | Encounter Summary ---
[place] [address] Care Team Providers Care Bark Press Operator Name Role Phone Lorna Bal APRN Primary Care Provider [phone] [phone] Encounter Details Date Type Department Care Team (Late st Contact Info) Description 06/17/2022 Ancillary [place] [address] Joe Harrison MD [facility] [place] [address] Social History Tobacco Use Types Packs/Day Years [...] EDT TH Visit (TeleHealth) [place] [address] Lilli Joy APRN [facility] [place] [address] 11/30/2023 12:50 PM EDT [place] [phone] 12/03/2023 12:30 PM EDT Office [place] [address] Hollie Ambriz MD [facility] [place] [address] documented as of this encounter Procedures Procedure Name Priority Date/Time Associated Diagnosis Comments FILM LIBRARY STORAGE ONLY DX SPINE Routine 06/17/2022 12:00 AM EST documented in this encounter Results * Film Library- Storage Only DX Spine (06/17/2022 12:00 AM EST) Narrative [facility] - 06/19/2022 4:36 PM EST This exam is auto-finalizing. It's purpose is for storage only. Joe Harrison MD IMG FILM LIBRARY ORD ERABLES [place], [place] documented in this encounter Visit Diagnoses Not on filedocumented in this encounter Care Teams Bark Press Operator Relationship Specialty Start Date End Date Lorna Bal APRN [address] [address] PCP - General Family Medicine 05/27/18 documented as of this encounter
--- OUTSIDE RECORDS SUMMARY | 2023-11-09 18:15 | XMS_ITS | Encounter Summary ---
[place] [address] Care Team Providers Care Distresser Name Role Phone Lorna Bal APRN Primary Care Provider [phone] [phone] Encounter Details Date Type Department Care Team (Late st Contact Info) Description 06/19/2022 4:45 PM EST Ancillary Procedure [place] [phone] Joe Harrison MD [facility] [place] [address] Social History Tobacco Use Types Packs/Day Years [...] Visit (TeleHealth) [place] [address] Lilli Joy APRN [facility] [place] [address] 11/30/2023 12:50 PM EDT [place] [phone] 12/03/2023 12:30 PM EDT Office [place] [address] Hollie Ambriz MD [facility] [place] [address] documented as of this encounter Procedures Procedure Name Priority Date/Time Associated Diagnosis Comments FILM LIBRARY STORAGE ONLY ULTRASOUND STUDY Routine 06/19/2022 4:40 PM EST documented in this encounter Results * Film Library- Storage Only Ultrasound Study (06/19/2022 4:40 PM EST) Narrative [facility] - 06/19/2022 4:40 PM EST This exam is auto-finalizing. It's purpose is for storage only. Joe Harrison MD IMG FILM LIBRARY ORD ERABLES [place], [place] documented in this encounter Visit Diagnoses Not on filedocumented in this encounter Care Teams Distresser Relationship Specialty Start Date End Date Lorna Bal APRN [address] [place] [address] PCP - General Family Medicine 05/27/18 documented as of this encounter
--- OUTSIDE RECORDS SUMMARY | 2023-11-09 18:15 | XMS_ITS | Encounter Summary ---
Author Organization [facility] [place] [address] Care Team Providers Care Eviscerator Name Role Phone Emelyn Easley MD Primary Care Provider [phone] Reason for Referral * Diagnostic Test (Routine) - Closed Specialty Diagnoses / Procedures Referred By Contac t Referred To Contact Radiology Diagnoses Traumatic brain injury, without LOC, sequela Acquired dysplasia of hip, unspecified laterality Procedures NM Whole Body Bone Scan Vanda Carter, [place] [address] [facility] [place] [address] Referral ID Status Reason Start Date Expiration Date V isits Requested Visits Authorized [id number] Closed Specialty Service Requested 12/16/2016 12/16/2017 2 2 Reason for Visit * Auth/Cert Specialty Diagnoses / Procedures Referred By Contac t Referred To Contact Diagnoses TBI, W/O LOC, SEQUEIA/ACQUIRED DYSPLASIA OF HIP Procedures PRO ANESTH, CAT/MRI SCAN, RADIATN THERAPY BONE SCAN Referral ID Status Reason Start Date Expiration Date Visits Re quested Visits Authorized [id number] 1 1 Encounter Details Date Type Department Care Team (Latest Contact Info) Description 12/30/2016 12:00 PM EDT - 12/30/2016 2:56 PM EDT Hospital Encounter [place] [phone] Josse Mckee MD [facility] [place] [address] Traumatic brain injury, without LOC, sequela; Acquired dysplasia of hip, unspecified laterality Discharge Disposition: Home Social History Tobacco Use [...] 11/20/2010 07/09/2022 documented as of this encounter Plan of Treatment Upcoming Encounters Date Type Department Care Team (Late st Contact Info) Description 11/19/2023 2:30 PM EDT TH Visit (TeleHealth) [place] [phone] Lilli Joy APRN [facility] [place] [address] 11/30/2023 12:50 PM EDT [place] [phone] 12/03/2023 12:30 PM EDT Office Visit Infectious Disease at [facility] [place] [address] Hollie Ambriz MD [facility] [place] [address] documented as of this encounter Procedures Procedure Name Priority Date/Time Associated Diagnosis Comments NM BONE SCAN WHOLE BODY Routine 12/30/2016 4:02 PM EDT Traumatic brain injury, without LOC, sequela Acquired dysplasia of hip, unspecified laterality documented in this encounter Results * NM Whole Body Bone Scan (12/30/2016 4:02 PM EDT) Anatomical Region Laterality Modality Nuclear Medicine Impressions 12/30/2016 5:18 PM EDT 1. ??Mild diffuse increased uptake within the bilateral hip joints likely due to chronic osseous remodeling. 2. ??No focal uptake within the spine. I have personally reviewed the image(s) and the residents interpretation and agree with the findings, Angelica Taylor at 12/30/2016 5:18 PM Narrative 12/30/2016 5:18 PM EDT EXAMINATION: NM WHOLE BODY BONE SCAN CLINICAL HISTORY: Evaluate source of pain, hips vs spine. Please use a catheter and sedation for the study. TECHNIQUE: Three hours following the intravenous administration of 22 mCi of technetium-99m MDP, images of the planar entire skeleton were obtained in the anterior posterior projections, in addition to spot lateral planar images of the head. Patient was sedated for this examination by the section of Anesthesia. COMPARISON: Bone scan 12/10/2016; spine and pelvic radiographs dated 11/24/2016; CT abdomen dated 05/27/2014. FINDINGS: Evaluation is somewhat limited due to limited patient positioning particularly of the upper extremities and underlying severe thoracolumbar scoliosis extremity contractures. Rdz catheter is present. A single area of focal intense uptake is seen within the right hemipelvis which likely represents urine likely within the bladder or right ureter. Mild diffuse increased activity within the bilateral hip joints is seen. Two tiny foci of increased activity overlying the soft tissues the left anterior hip likely represent contamination. No focal increased activity within the spine. ??The kidneys are unremarkable. Procedure Note Angelica Taylor MD - 12/30/2016 EXAMINATION: NM WHOLE BODY BONE SCAN CLINICAL HISTORY: Evaluate source of pain, hips vs spine. Please use acatheter and sedation for the study. TECHNIQUE: Three hours following the intravenous administration of 22 mCiof technetium-99m MDP, images of the planar entire skeleton were obtained inthe anterior posterior projections, in addition to spot lateral planar imagesof the head. Patient was sedated for this examination by the section ofAnesthesia. COMPARISON: Bone scan 12/10/2016; spine and pelvic radiographs date11/24/2016; CT abdomen dated 05/27/2014. FINDINGS: Evaluation is somewhat limited due to limited patient positioningparticularly of the upper extremities and underlying severe thoracolumbar scoliosisextremity contractures. Rdz catheter is present. A single area of focal intenseuptake is seen within the right hemipelvis which likely represents urine likelywithin the bladder or right ureter. Mild diffuse increased activity within the bilateral hip joints is seen. Two tiny foci of increased activityoverlying the soft tissues the left anterior hip likely represent contamination. Nofocal increased activity within the spine. The kidneys are unremarkable. IMPRESSION 1. Mild diffuse increased uptake within the bilateral hip joints likelydue to chronic osseous remodeling. 2. No focal uptake within the spine. I have personally reviewed the image(s) and the residents interpretationand agree with the findings, Angelica Taylor at 12/30/2016 5:18 PM Josse Mckee MD [facility] [place] [place] ORDER[place]LES documented in this encounter Visit Diagnoses Diagnosis Traumatic brain injury, without LOC, sequela Acquired dysplasia of hip, unspecified laterality documented in this encounter Administered Medications Inactive Administered Medications - up to 3 most recent administrations Medication Order MAR Action Action Date Dose Rate Site technetium (Tc-99m) methylene diphosphonate (MDP) injection 22 mCi 22 mCi, Intravenous, ONCE PRN, 1 dose, Starting on Thu12/30/16 at 1325, Until Thu12/30/16 at 1325, Per Protocol, Routine Given 12/30/2016 1:25 PM EDT 22 mCi documented in this encounter Care Teams Eviscerator Relationship Specialty Start Date End Date Emelyn Easley MD [address] [place] [address] PCP - General Family Medicine 08/26/16 05/26/18 documented as of this encounter
--- OUTSIDE RECORDS SUMMARY | 2023-11-09 18:15 | XMS_ITS | Encounter Summary ---
[place] [address] Care Team Providers Care Dissolver Operator Name Role Phone Lorna Bal APRN Primary Care Provider [phone] Encounter Details Date Type Department Care Team (Latest Contact Info) Description 07/04/2022 Travel Social History Tobacco Use Types Packs/Day [...] (TeleHealth) Infectious Disease at [facility] [phone] Lilli Joy APRN [facility] [place] [address] 11/30/2023 12:50 PM EDT [place] [address] 12/03/2023 12:30 PM EDT Office [place] [address] Hollie Ambriz MD [facility] [place] [address] documented as of this encounter Visit Diagnoses Not on filedocumented in this encounter Additional Health Concerns Infection Onset Date Last Indicated Resolved Time Parainfluenza Virus 06/28/2022 06/28/2022 07/10/19 23 8:09 PM EDT documented as of this encounter Care Teams Dissolver Operator Relationship Specialty Start Date End Date Lorna Bal APRN [address] [place] [address] PCP - General Family Medicine 05/27/18 documented as of this encounter
--- OUTSIDE RECORDS SUMMARY | 2023-11-09 18:15 | XMS_ITS | Encounter Summary ---
Author Organization [facility] Address [facility] [place] [address] Care Team Providers Care Safety Analyst Name Role Phone Lorna Bal APRN Primary Care Provider [phone] [phone] Encounter Details Date Type Department Care Team (Latest Contact Info) Description 03/18/2019 1:45 PM EST - 03/18/2019 11:59 PM EST Hospital Encounter XRay at [address] [place] [address] Josse Mckee MD [facility] [place] [address] Acquired dysplasia of hip, unspecified laterality Discharge [...] Sig Dispensed Refills Start Date End Date Acetaminophen 500 mg/15 mL Liquid Take 15 mLs by mouth every 4 hours as needed. 1 Bottle 06/14/2018 06/24/2022 ibuprofen (ADVIL;MOTRIN) 100 mg/5 mL Suspension Take 13.6 mLs by mouth every 4 hours as needed for Pain or Fever. 1 Bottle 06/14/2018 06/24/2022 ammonium lactate (AMLACTIN) 12 % CreamIndications:Kerato sis pilaris Apply 2-3 times daily to affected area on arms and legs. 385 g 11/16/2017 06/24/2022 baclofen (LIORESAL) 10 mg TabletIndications:Traum atic brain injury, without LOC, sequela,Acquired dysplasia of hip, unspecified laterality,Spasticity,N euromuscular scoliosis of lumbar region Take 1 tablet by mouth 2 times daily. 180 tablet 11/24/2016 06/24/2022 POLYETHYLENE GLYCOL 3350 (MIRALAX ORAL) Take 17 g by mouth as needed. 11/20/2010 07/09/2022 documented as of this encounter Plan of Treatment Upcoming Encounters Date Type Department Care Team (Late st Contact Info) Description 11/19/2023 2:30 PM EDT TH Visit (TeleHealth) [place] [address] Lilli Joy APRN [facility] [place] [address] 11/30/2023 12:50 PM EDT [place] [address] 12/03/2023 12:30 PM EDT Office [place] [address] Hollie Ambriz MD [facility] [place] [address] documented as of this encounter Procedures Procedure Name Priority Date/Time Associated Diagnosis Comments XR PELVIS AND FROG LATERAL BILAT Routine 03/18/2019 2:18 PM EST Acquired dysplasia of hip, unspecified laterality documented in this encounter Results * XR Pelvis & Frog Lat Bilat (Pedi Only) (03/18/2019 2:18 PM EST) Anatomical Region Laterality Modality Pelvis, Hip N/A Digital Radiogra phy Impressions 03/18/2019 4:22 PM EST Status post [place]. No acute change. Thank you for letting us participate in the care of this patient. For questions regarding this report, please contact the number below. ? Electronically signed by: Zander Sherwood [facility] ([phone]), at 03/18/2019 4:22 PM Narrative 03/18/2019 4:22 PM EST EXAMINATION: XR [...] Diagnosis Acquired dysplasia of hip, unspecified laterality documented in this encounter Care Teams Safety Analyst Relationship Specialty Start Date End Date Lorna Bal, OCCASIONAL CAREGIVER [address] [place] [address] PCP - General Family Medicine 05/27/18 documented as of this encounter
--- OUTSIDE RECORDS SUMMARY | 2023-11-09 18:15 | XMS_ITS | Encounter Summary ---
Author Organization [facility] Address [facility] [place] [address] Care Team Providers Care Dock Operations Supervisor Name Role Phone Lorna Bal APRN Primary Care Provider [phone] [phone] Encounter Details Date Type Department Care Team (Late st Contact Info) Description 07/08/2022 Orders Only Infectious Disease at [facility] [place] [address] Jamaal Estrada MD [facility] [place] [address] 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; Bacteremia; E coli infection; Soft tissue abscess; Muscle abscess Social History Tobacco Use Types Packs/Day Years Used Date Smoking Tobacco: Never Smokeless Tobacco: Never Comments:NO SMOKERS IN THE H OME Alcohol Use Standard Drinks/Week Comments No 0 (1 standard drink = 0.6 oz pur e alcohol) [facility] Inpatient Questions Answer Date Recorded Does [...] EDT TH Visit (TeleHealth) [place] [address] Lilli Joy APRN [facility] [place] [address] 11/30/2023 12:50 PM EDT [place] [address] 12/03/2023 12:30 PM EDT Office [place] [address] Hollie Ambriz MD [facility] DR [place] [address] documented as of this encounter Visit Diagnoses Diagnosis 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 Acute osteomyelitis, other specified site Bacteremia E coli infection Other and unspecified Escherichia coli (E. coli) Soft tissue abscess Cellulitis and abscess of other specified site Muscle abscess Other disorder of muscle, ligament, and fascia documented in this encounter Additional Health Concerns Infection Onset Date Last Indicated Resolved Time Parainfluenza Virus 06/28/2022 06/28/2022 07/10/19 23 8:09 PM EDT documented as of this encounter Care Teams Dock Operations Supervisor Relationship Specialty Start Date End Date Lorna Bal APRN [address] [place] [address] PCP - General Family Medicine 05/27/18 documented as of this encounter
--- OUTSIDE RECORDS SUMMARY | 2023-11-09 18:15 | XMS_ITS | Encounter Summary ---
Author Organization [facility] Address [facility] [place] [address] Care Team Providers Care Flight Surgeon Name Role Phone Lorna Bal APRN Primary Care Provider [phone] [phone] Reason for Visit * Consultation (Routine) - Closed Specialty Diagnoses / Procedures Referred By Contact Referred To Contact Maxillofacial Surgery Diagnoses wisdom teeth extraction no images Yas [address]ner, [place] [address] Keith Cotton MD [facility] DR ORAL & [place] [address] Referral ID Status Reason Start Date Expiration Date Visits Re quested Visits Authorized [id number] Closed 03/20/2018 03/20/2019 1 1 Encounter Details Date Type Department Care Team (Late st Contact Info) Description 05/27/2018 11:00 AM EST Office Visit [place] [address] Keith Cotton MD [facility] DR ORAL & [place] [address] Impacted teeth Social History Tobacco Use Types Packs/Day Years [...] - - Weight 54.4 kg (120 lb) 05/27/2018 12:36 PM EST Height 157.5 cm (5' 2) 05/27/2018 12:36 PM EST Body Mass Index 21.95 05/27/2018 12:36 PM EST documented in this encounter Progress Notes * Keith Cotton MD - 05/27/2018 11:00 AM EST Oral & Maxillofacial Surgery Extraction Consult Tana Cavazos is a 22 y.o. female who is referred to us by at [facility] for consultation regarding wisdom teeth dental extractions. A complete history of the Tana 's symptoms and physical signs were reviewed with attention to initial findings and progression, pain, bleeding, swelling, lumps, bumps, drainage, dysphagia, odynophagia, paresthesia, dysarthria and systemic effects. Pertinent notations from today's history: ?? Pt presents in a wheelchair with 2 caregivers ?? 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 Patient Active Problem List Diagnosis Code ??? 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 Acquired dysplasia of hip, bilateral M21.859 ??? Edema leg R60.0 ??? Scoliosis M41.9 ??? Spasticity R25.2 ??? Presence of intrathecal baclofen pump Z96.89 ??? Right leg pain M79.604 ??? Fracture of femur, distal S72.409A ??? 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 ammonium lactate (AMLACTIN) 12 % Cream ??? multivitamin (THERAGRAN) Tablet ??? baclofen (LIORESAL) 10 mg Tablet ??? levonorgestrel-ethinyl estradiol (INTROVALE) 0.15-30 mg-mcg per tablet ??? POLYETHYLENE GLYCOL 3350 (MIRALAX ORAL) Allergies Allergen Reactions ??? Fluoxetine Other (See Comments) HIVES, HEART RACES ??? Tegaderm [Transparent Dressings] Itching and Dermatitis Please use [id number] ROS with attention to cardiac, pulmonary, hepatic, renal, neurologic and dermatologic systems reviewed with relevant findings as noted. Physical Exam: Physical exam was limited but demonstrated a functional occlusion and good range of motion. Teeth appeared in good repair without facial asymmetry and without buccal fluctuance. Mild mandibular anterior gingivitis; ectopic maxillary right second molar. Tongue wnl, anterior occlusion wnl. Maxillary third molars not visible transoraly; the mandibular third molars may be transverse in orientation with 1 mm of exposure. Not able to obtain panorex radiograph; wheelchair bound. Radiographic Examination: None available Impression: Impacted and ectopic teeth; Recommendations and Plans: General anesthesia and extraction of the following teeth: Extracting #1,4,16,17,32- in the MOR Requesting IV placement after sedation by the care givers since the last iv attempt required ultrasound exam and still required one hour of painful prodding. Anticipated benefits and potential risks of the surgical intervention discussed were carefully reviewed with her care givers including but not limited to bleeding, infection, soft tissue dehiscence, delayed wound healing, nerve paresthesias and palsies, sinus injuries, injuries to adjacent tissues both hard and soft and possible need for additional surgery. They have both had third molars extracted and are aware of the post operative management. Questions regarding the proposed intervention were encouraged and answered. Time Statement: Thirty minutes was spent with the patient greater than 20 minutes of which included direct discussion regarding the clinical and radiographic findings where indicated, the potential diagnoses and a review of the natural history as well as treatment alternatives, their benefits and attendant risks. Tana was given an opportunity to ask questions and instructed to contact us if further questions arise following the consultation. Mesha Hair, SHABBIR, am acting as a scribe for Dr. Cotton. All work documented was performedby Dr. Cotton. Keith Hair, performed the above scribed service and agree with the accuracy of the note. documented in this encounter Plan of Treatment Upcoming Encounters Date Type Department Care Team (Late st Contact Info) Description 11/19/2023 2:30 PM EDT TH Visit (TeleHealth) [place] [address] Lilli Joy APRN [facility] [place] [address] 11/30/2023 12:50 PM EDT Appointment [place] [address] 12/03/2023 12:30 PM EDT Office Visit [place] [address] Hollie Ambriz MD [facility] [place] [address] documented as of this encounter Visit Diagnoses Diagnosis Impacted teeth documented in this encounter Care Teams Flight Surgeon Relationship Specialty Start Date End Date Lorna Bal APRN [address] [place] [address] PCP - General Family Medicine 05/27/18 documented as of this encounter
--- OUTSIDE RECORDS SUMMARY | 2023-11-09 18:15 | XMS_ITS | Encounter Summary ---
Author Organization [facility] Address [facility] [place] [address] Care Team Providers Care Group Tester Name Role Phone Lorna Bal APRN Primary Care Provider [phone] Reason for Visit * Auth/Cert Specialty Diagnoses [...] Expiration Date Visits Re quested Visits Authorized [id number] 1 1 Encounter Details Date Type Department Care Team (Late st Contact Info) Description 06/14/2018 9:45 AM EST - 06/14/2018 11:30 AM EST Surgery [place] [id number] Keith Wilson MD [facility] DR ORAL & [place] [address] SURGICAL EXTRACTIONS, REMOVAL OF IMPACTED TOOTH, COMPLETELY BONY (WRVU 1.93) Social History Tobacco Use Types Packs/Day Years [...] Sign Reading Time Taken Comments Blood Pressure 135/64 06/14/2018 11:30 AM EST Pulse 95 06/14/2018 11:30 AM EST Temperature 36.1 ??C (97 ??F) 06/14/2018 11:15 AM EST Respiratory Rate 20 06/14/2018 11:30 AM EST Oxygen Saturation 99% 06/14/2018 11:30 AM EST Inhaled Oxygen Concentration - - Weight - - Height - - Body Mass Index - - documented in this encounter Discharge Instructions * Discharge Instructions* Jon Dey RN - 06/14/2018 9:14 AM EST General Anesthesia Discharge Instructions Go home and rest. You may be sleepy for several hours. Take it easy as sudden position changes may cause nausea and/or dizziness. Use caution on stairs. Do not smoke if you are alone. Follow a light to regular diet as tolerated today. If nausea occurs, start with clear liquids, and progress slowly to a regular diet. Do not drive, operate machinery, drink alcoholic beverages or make any legal decisions after havinggeneral anesthesia. The medications given change your reaction time and alter your judgement. IV site -- slight redness is normal, you can use warm compresses. If tenderness and redness increases or foul drainage occurs, please contact your M.D. Patients who have had endotracheal tubes/LMA (tubes used by the anesthesia staff to ensure a safe airway during your operation) may have a sore throat. This is normal and cold liquids or soothing lozenges will help ease this discomfort. Narcotic pain medications can cause constipation, please ask the surgeons office what they recommend for prevention of this. Some non-pharmaceutical means of constipation prevention include increasing intake of fluids, eating more fruits and vegetables as well as fruit juices. If you are uncomfortable and/or unable to urinate within 8 hours of discharge and it is before 5 pm, call your physician. If it is after 5pm go to the closest emergency room or call the hospital brim pouncing machine operator at [phone] and ask for physician superintendent radio communications covering for your physician. Questions or problems after 5pm or on a weekend: Call the [facility] brim pouncing machine operator at and ask for the physician superintendent radio communications covering for your doctor. * Patient Instructions* Keith Wilson MD - 06/14/2018 9:09 AM EST On the Day of Surgery: DO NOT rinse your mouth, smoke, or use a straw when drinking. Any of these could cause you to bleed more. You should remain at home, rest, and avoid alcoholic beverages. Discomfort: It is not uncommon for you to have some discomfort following a surgical procedure. Thisdiscomfort may last for three days or more. Pain relievers such as ibuprofen or Tylenol may be taken - 2 tablets every 3 to 4 hours as needed. If a narcotic is prescribed, take this only as needed. Narcotic drugs may cause nausea. DO NOT take them on an empty stomach, and DO NOT drive or consume alcohol while on narcotics. If prescribed Vicodin, usual dosage is 1- 2 tablets every 4-6 hours as needed for pain. Total daily dosage SHOULD NOT EXCEED 8 tablets. Other discomforts you may experience include: slight earache, sore throat, numbness or tingling in the lips or chin, aches in other teeth, and tightness of the jaw muscles. Bleeding: It is normal for the extraction site to bleed post-operatively. If bleeding continues, place gauze directly over the socket and bite down gently, but firmly, for 20 minutes. Repeat this process as needed. If bleeding is heavy, keep head elevated or sit upright, avoid exercise, hot liquids, smoking, and drinking from straws. If the bleeding does not stop with pressure, try a lukewarm, damp tea bag in place of the gauze foranother 20 minutes. The tea bag will help to form blood clots and stop the bleeding. If bleeding continues, call your doctor. Swelling: To reduce immediate swelling after your procedure, apply an ice pack, with pressure, to the face over the area of the procedure. Ice should be applied for 15-20 minutes at a time, for the first 24 hours. After 24 hours, a moist warm compress may be helpful. Most swelling will occur [id number] hours following the procedure. Mouth Rinse: Vigorous mouth washing may cause bleeding to begin again if clots are not formed. DO NOT RINSE on the day of surgery. Begin rinsing one day after the procedure very gently with warm saltwater (1/2 teaspoon per 8 oz. warm water). Continue rinsing 3-6 times a day for several days. This will keep surgical sites clean and will help with healing. Diet: It is best to eat light, soft foods, and drink plenty of liquids following a surgical procedure. Foods like, yogurt, pasta, eggs, soups, and ice cream are good choices. Avoid hot liquids for 24hours after tooth extraction. Avoid foods that are difficult to chew. Once chewing becomes easier, you may return to your normal diet. In General: If stitches are used, they will dissolve or unravel in about three days to one week. Avoid strenuous exercise, such as jogging and contact sports for at least one week following surgery. Swelling is usually most extensive 24- 48 hours following surgery, and usually takes 4-5 days to subside. Sockets can take 4-6 weeks to heal, and often heal from the inside out. It may take 10-14 days before you feel like your normal self again. The Oral Surgery staff can be reached during office hours at [phone]. If you have questions atnight or on weekends, Dr. Wilson can be reached at [phone]. documented in this encounter Medications at Time of Discharge Medication Sig Dispensed Refills Start Date End Date Acetaminophen 500 mg/15 mL Liquid Take 15 mLs by mouth every 4 hours as needed. 1 Bottle 06/14/2018 06/24/2022 ibuprofen (ADVIL;MOTRIN) 100 mg/5 mL Suspension Take 13.6 mLs by mouth every 4 hours as needed for Pain or Fever. 1 Bottle 06/14/2018 06/24/2022 oxyCODONE (ROXICODONE) 5 mg/5 mL Solution Take 5 mLs by mouth every 4 hours as needed for Pain. 60 mL 06/14/2018 03/18/2019 ammonium lactate (AMLACTIN) 12 % CreamIndications:Kerato sis [...] as of this encounter Progress Notes * Jessica Silva RN - 06/14/2018 12:18 PM EST Discharge instructions given to Care givers & mother. Tana tolerated Ibuprofen and Ice pop. documented in this encounter H&P Notes * Keith Wilson MD - 06/14/2018 8:58 AM EST Patient Name: Tana Cavazos Patient Age: 22 y.o. Birthdate: 1995 Admit date: 06/14/2018 Attending Physician: Keith Wilson MD INTERVAL H&P CC: impacted and carious teeth S: Tana Cavazos's condition is unchanged since H&P originally performed. Denies any new ED visits, hospitalizations, trauma, or new events. Has been overall doing well. No past medical history on file. Past Surgical History: Procedure Laterality Date ??? BACK SURGERY scoliosis repair ??? HIP OSTEOTOMY bilateral ??? PRO APPLY OF HIP CASTS, TWO LEGS 08/15/2010 CAST APPLICATION, HIP SPICA, BOTH LEGS performed by BARRERA OLIVER at [facility] MAIN OR ? ? PRO I&D, POST SPINE, LUMB/SACR/LUMBOSAC N/A 05/20/2014 @I & D, OPEN, DEEP ABSCESS, LUMBAR, SACRAL, LUMBOSACRAL performed by Freddy Isbell MD at [facility] MAIN OR ? ? PRO I&D, POST SPINE, LUMB/SACR/LUMBOSAC N/A 05/26/2014 @I & D, OPEN, DEEP ABSCESS, LUMBAR, SACRAL, LUMBOSACRAL performed by Freddy Isbell MD at [facility] MAIN OR ??? PRO OSTEOTOMY FEMUR SHAFT/SUPRACONDY 08/15/2010 ??OSTEOTOMY, FEMUR SHAFT OR SUPRACONDYLAR W/O FIXATION performed by BARRERA OLIVER at [facility] OR ??? PRO RECONSTRUC HIP SOCKET, RESEC FEM HEAD 08/15/2010 ??ACETABULOPLASTY (GIRDLESTONE), RESECTION FEMORAL HEAD, BILATERAL performed by BARRERA OLIVER [facility] OR ??? PRO REMOVAL DEEP IMPLANT 08/15/2010 REMOVAL IMPLANT, DEEP, BRUNO performed by BARRERA OLIVER at [facility] OR ??? PRO REMOVE INFUSN DEVICE/PUMP N/A [...] MD at [facility] OR Allergies Allergen Reactions ??? Fluoxetine Other (See Comments) HIVES, HEART RACES ??? Tegaderm [Transparent Dressings] Itching and Dermatitis Please use [id number] No current facility-administered medications on file prior to encounter. Current Outpatient Medications on File Prior to Encounter Medication Sig Dispense Refill ??? multivitamin (THERAGRAN) Tablet Take 1 tablet by mouth daily. ??? baclofen (LIORESAL) 10 mg Tablet Take 1 tablet by mouth 2 times daily. 180 tablet 0 ??? POLYETHYLENE GLYCOL 3350 (MIRALAX ORAL) Take by mouth daily. ??? ammonium lactate (AMLACTIN) 12 % Cream Apply 2-3 times daily to affected area on arms and legs.385 g 0 ??? levonorgestrel-ethinyl estradiol (INTROVALE) 0.15-30 mg-mcg per tablet Take 1 tablet by mouth daily. Family History Problem Relation Age of Onset ??? Cancer Maternal Grandmother ??? Heart Disease Maternal Grandfather Social History Socioeconomic History ??? Marital status: Single Spouse name: Not on file ??? Number of children: Not on file ??? Years of education: Not on file ??? Highest education level: Not on file Social Needs ??? Financial resource strain: Not on file ??? Food insecurity - worry: Not on file ??? Food insecurity - inability: Not on file ??? Transportation needs - medical: Not on file ??? Transportation needs - non-medical: Not on file Occupational History ??? Not on file Tobacco Use ??? Smoking status: Never Smoker ??? Smokeless tobacco: Never Used ??? Tobacco comment: NO SMOKERS IN THE HOME Substance and Sexual Activity ??? Alcohol use: No ??? Drug use: No ??? Sexual activity: Not on file Other Topics Concern ??? Not on file Social History Narrative ??? Not on file Review of Systems: Constitutional: denies fever, chills Skin: denies any new growths orrashes HEENT: denies head ache,no recent upper respiratory sx Resp: denies any SOB, HARRIS CV: No CP, no palpitations GI: denies abd pain, vomiting : denies dysuria, hematuria PV: denies past DVT, claudication MS: denies joint pain, swelling Neuro: denies weakness, numbness Heme/Lymph: denies bruising, bleeding Endo: no troubles with sugar, denies fatigue O: No data found. NAD, A&Ox3 Non-labored respirations, clear to auscultation bilaterally Regular rate and rhythm, no murmur on auscultation Site marked AP: 22 y.o. female with impacted wisdom teeth. - After extensive discussion of the risks, benefits, and alteratives of surgical intervention, the patient consented to proceed with surgery. - IV antibiotics ordered - Proceed to OR for: Procedure(s): SURGICAL EXTRACTIONS, REMOVAL OF IMPACTED TOOTH, COMPLETELY BONY (WRVU 1.93) SURGICAL EXTRACTIONS REQUIRING ELEVATION OF MUCOPERIOSTEAL FLAP AND REMOVAL OF BONE OR SECTION OF TOOTH (WRVU 1.09) No flowsheet data found. [place] PDMP QUERY DATE: 06/14/18 Risk Assessment Category: Low Tana Cavazos is getting a prescription opioid for the treatment of acute post- operative pain related to the surgical procedure during this encounter. Pt has been advised to take the smallest dose possible to control pain and as the pain improves to take smaller doses and increase the time between doses. In addition to this medication, pt was educated on the non-opioid pain medications that can be taken for adjunct treatment of pain. Non-pharmacological treatments were also discussed that include but not limited to ice, elevation, and activity modification as appropriate. The Acute Opioid Therapy Informed Consent form has been completed during this encounter and sent tomedical records for scanning to chart. No future appointments. Keith Wilson DMD, MD name plate stamping machine operator documented in this encounter Miscellaneous Notes * Op Note - Keith Wilson MD - 06/14/2018 11:06 AM EST [facility] Operative Note Patient Name: Tana Cavazos : [id number] MR#: [id number] Case Date: 06/14/2018 Surgeon: Surgeon(s) and Role: * Keith Wilson MD - Primary Preoperative diagnosis: impacted wisdom teeth Postoperative diagnosis: impacted wisdom teeth Procedure(s) (LRB): SURGICAL EXTRACTIONS, REMOVAL OF IMPACTED TOOTH, COMPLETELY BONY (WRVU 1.93) (N/A) SURGICAL EXTRACTIONS REQUIRING ELEVATION OF MUCOPERIOSTEAL FLAP AND REMOVAL OF BONE OR SECTION OF TOOTH (WRVU 1.09) (N/A) Anesthesia: General Estimated Blood Loss: * No values recorded between 06/14/2018 9:37 AM and 06/14/2018 11:06 AM * Specimens removed during surgery: None Drains: Surgical Closure: Primary Closure - skin incision is completely closed without any wires, linus, drains or other devices Disposition: awakened from anesthesia, extubated and taken to the recovery room in a stable condition, having suffered no apparent untoward event. Condition: doing well without problems (Please see the Surgical Encounter Summary for any Implant and Specimen details pertinent to this patient.) HPI/Surgical Indications: impacted wisdom teeth and ectopic upper right second premolar #4. Procedure : The patient was brought to the operating room and placed under general anesthesia via nasoendotracheal tube. Tana Aleman prepped and draped in the standard fashion for behavioral health assistant. The oral cavity was suctioned and an oral pharyngeal pack was placed. 7 cc of 1% Xylocaine with 1- 200,000 epinephrine was used to infiltrate the surgical sites. #15 blade was used to make an incision in the soft tissue overlying the complete bony impacted maxillary right third molar - tooth #1. Mucoperiosteum was then reflected and elevated superiorly. Bone overlying the tooth and on the lateral aspect of the alveolus was removed. The tooth was then extracted and the extraction site was curetted and irrigated. Soft tissue was then coapted with interrupted 3-0 chromic suture. An identical procedure was used remove the complete bony impacted maxillary left third molar - tooth #16. Attention was then turned to the mandible where 15 blade was used to incise the soft tissue overlying the bony impacted lower right third molar - tooth #32. Mucoperiosteum was reflected laterally andthe GL 2ours drill was used to remove bone overlying the tooth and the tooth perimeter. The impactedtooth was then divided into multiple fragments to facilitate its delivery. The extraction site was subsequently irrigated and the soft tissue was coapted with interrupted 3-0 chromic suture. An identical procedure was used remove the complete bony impacted mandibular left third molar - tooth #17. Once these were removed tooth #4 which was ectopic was surgically removed. It was oriented on the palate and the mucoperiosteum was incised and reflected on the palatal aspec t of the ridge. Once reflected, bone was removed on the palatal aspect of the crown of the tooth and it was extracted. The mu coperiosteum was coapted with 3-0 chromic. All of the above extraction sites were packed with non-compressed gelfoam. Good hemostasis was noted throughout and an additional 4 cc of 1/2 % marcaine with epi was infilrated along the surgical sites. No evidence of injury to the sinuses or inferior alveolar nerve noted. The oral cavity was then carefully suctioned and the oral pharyngeal pack was removed. An oral gastric tube was passed to empty the stomach. The patient was awakened, extubated and brought to the recovery room in satisfactory condition having tolerated the procedure well with a minimum of blood loss. Infection Bundle used? No Attestation: Case Date: 06/14/2018 I performed this procedure without the involvement of a resident. KEITH WILSON MD 06/14/2018 documented in this encounter Plan of Treatment Upcoming Encounters Date Type Department Care Team (Late st Contact Info) Description 11/19/2023 2:30 PM EDT TH Visit (TeleHealth) [place] [phone] Lilli Joy APRN [facility] [place] [address] 11/30/2023 12:50 PM EDT [place] [phone] 12/03/2023 12:30 PM EDT Office [place] [phone] [facility] [place] [address] documented as of this encounter Procedures Procedure Name Priority Date/Time Associated Diagnosis Comments SURGICAL EXTRACTIONS REQUIRING ELEVATION OF MUCOPERIOSTEAL FLAP AND REMOVAL OF BONE OR SECTION OF TOOTH (WRVU 1.09) Yes 06/14/2018 9:13 AM EST impacted wisdom teeth SURGICAL EXTRACTIONS, REMOVAL OF IMPACTED TOOTH, COMPLETELY BONY (WRVU 1.93) Yes 06/14/2018 9:13 AM EST impacted wisdom teeth documented in this encounter Visit Diagnoses Not on filedocumented in this encounter Administered Medications Inactive Administered Medications - up to 3 most recent administrations Medication Order MAR Action Action Date Dose Rate Site BUpivacaine-EPINEPHrine 0.5 %-1:200,000 injection ONCE PRN, Starting on Thu06/14/18 at 1100, Until Thu06/14/18 at 1420, Intra-Operative (Intra-Procedure), Routine Given 06/14/2018 11:00 AM EST 4 mLs fentaNYL (PF) 50mcg/mL injection 12.5-25 mcg, Intravenous, EVERY 5 MIN PRN, Starting on Thu06/14/18 at 1157, Until Thu06/14/18 at 1420, Pain, Give 12.5 mcg every 5 minutes PRN for mild to moderate pain (1-5) Give 25 mcg every 5 minutes PRN for moderate to severe pain (6-10). Hold for respiratory rate less than 10 per minute. Maximum dose 250 mcg over one hour. If ordered with hydromorphone or morphine, give hydromorphone or morphine first and use fentanyl for breakthrough pain., PACU Recovery, Routine gelatin adsorbable (GELFOAM) sponge ONCE PRN, Starting on Thu06/14/18 at 1020, Until Thu06/14/18 at 1420, Intra-Operative (Intra-Procedure) Given 06/14/2018 10:20 AM EST 3 each 19- Surgical Site hydrocortisone 1 % ointment ONCE PRN, Starting on Thu06/14/18 at 1006, Until Thu06/14/18 at 1420, Intra-Operative (Intra-Procedure) Given 06/14/2018 10:06 AM EST 0.25 Tubes 19- Surgical Site ibuprofen (ADVIL;MOTRIN) 100 mg/5 mL suspension 300 mg 300 mg, Oral, EVERY 6 HOURS PRN, Starting on Thu06/14/18 at 1112, Until Thu06/14/18 at 1420, Pain, May be given concomitantly with other analgesia. If both acetaminophen and ibuprofen ordered, please give acetaminophen first for pain. If pain not relieved in 30 minutes may administer ibuprofen, if ordered. Administer orally with milk or food to minimize GI irritation., Routine Given 06/14/2018 11:59 AM EST 300 mg lactated Ringers infusion 1,000 mL 1,000 mL, at 100 mL/hr, Intravenous, CONTINUOUS, Starting on Thu06/14/18 at 0900, Until Thu06/14/18 at 1420, Day of Surgery (Day of Procedure) New Bag 06/14/2018 9:15 AM EST lidocaine (XYLOCAINE) 10 mg/mL (1 %) injection 3 mg 3 mg (0.3 mL), Subcutaneous, ONCE PRN, 1 dose, Starting on Thu06/14/18 at 0839, Until Thu06/14/18 at 1420, for discomfort with PIV insertion, Day of Surgery (Day of Procedure), Routine lidocaine-EPINEPHrine 2 %-1:200,000 injection ONCE PRN, Starting on Thu06/14/18 at 1006, Until Thu06/14/18 at 1420, Intra-Operative (Intra-Procedure), Routine Given 06/14/2018 10:06 AM EST 3.5 mLs 19- Surgical Site sodium chloride 0.9 % flush 5-20 mL 5-20 mL, Intravenous, EVERY 1 MIN PRN, Starting on Thu06/14/18 at 0839, Until Thu06/14/18 at 1420, flush, Flush pertains to all indwelling lines. Flush per protocol found in the job aid using the link provided on this medication record., Day of Surgery (Day of Procedure), Routine documented in this encounter Active and Recently Administered Medications Times are shown in EST. Scheduled Medication Order 06/12/2018 06/13/2018 06/14/2018 ampicillin-sulbactam (UNASYN) 3 g vial attach to sodium chloride 0.9% 100 mL Mini-Bag Plus (COMPLETED) 3 g, Intravenous, ONCE, 1 dose, On Thu06/14/18 at 1000, Administer over 30 Minutes, Warning Vesicant/Irritant Medication , Day of Surgery (Day of Procedure), Indication for (Active or Suspected): Prophylaxis 0933 (New Bag - Prov ider: Laxmi Fowler CRNA) Continuous Medication Order 06/12/2018 06/13/2018 06/14/2018 dextrose 5% and sodium chloride 0.45% infusion 1,000 mL, at 100 mL/hr, Intravenous, CONTINUOUS, Starting on Thu06/14/18 at 1130, Until Thu06/14/18 at 1420 1130 (Due) lactated Ringers infusion 1,000 mL 1,000 mL, at 100 mL/hr, Intravenous, CONTINUOUS, Starting on Thu06/14/18 at 0900, Until Thu06/14/18 at 1420, Day of Surgery (Day of Procedure) 0915 (New Bag - Prov ider: Laxmi Fowler CRNA)1013 (Stopped - Provider: Laxmi Fowler CRNA) PRN Medication Order 06/12/2018 06/13/2018 06/14/2018 acetaminophen (TYLENOL) 650 mg/20.3 mL oral liquid 500 mg 500 mg, Oral, EVERY 4 HOURS PRN, Starting on Thu06/14/18 at 1112, Until Thu06/14/18 at 1420, Pain, May be given concomitantly with other analgesia. If both acetaminophen and ibuprofen ordered, please give acetaminophen first for pain. If pain not relieved in 30 minutes may administer ibuprofen, if ordered. Maximum dose of acetaminophen is 4000 mg from all sources in 24 hours., Routine BUpivacaine-EPINEPHrine 0.5 %-1:200,000 injection (CANCELED) ONCE PRN, Starting on Thu06/14/18 at 1100, Until Thu06/14/18 at 1420, Intra-Operative (Intra-Procedure), Routine 1100 (Given - Provid er: Keith Wilson MD) fentaNYL (PF) 50mcg/mL injection 12.5-25 mcg, Intravenous, EVERY 5 MIN PRN, Starting on Thu06/14/18 at 1157, Until Thu06/14/18 at 1420, Pain, Give 12.5 mcg every 5 minutes PRN for mild to moderate pain (1-5) Give 25 mcg every 5 minutes PRN for moderate to severe pain (6-10). Hold for respiratory rate less than 10 per minute. Maximum dose 250 mcg over one hour. If ordered with hydromorphone or morphine, give hydromorphone or morphine first and use fentanyl for breakthrough pain., PACU Recovery, Routine gelatin adsorbable (GELFOAM) sponge (CANCELED) ONCE PRN, Starting on Thu06/14/18 at 1020, Until Thu06/14/18 at 1420, Intra-Operative (Intra-Procedure) 1020 (Given - Provid er: Keith Wilson MD - Comment: On field for surgeon's use as needed) hydrocortisone 1 % ointment (CANCELED) ONCE PRN, Starting on Thu06/14/18 at 1006, Until Thu06/14/18 at 1420, Intra-Operative (Intra-Procedure) 1006 (Given - Provid er: Keith Wilson MD - Comment: applied to lips) ibuprofen (ADVIL;MOTRIN) 100 mg/5 mL suspension 300 mg 300 mg, Oral, EVERY 6 HOURS PRN, Starting on Thu06/14/18 at 1112, Until Thu06/14/18 at 1420, Pain, May be given concomitantly with other analgesia. If both acetaminophen and ibuprofen ordered, please give acetaminophen first for pain. If pain not relieved in 30 minutes may administer ibuprofen, if ordered. Administer orally with milk or food to minimize GI irritation., Routine 1159 (Given - Provid er: Jessica Silva RN) lidocaine (XYLOCAINE) 10 mg/mL (1 %) injection 3 mg 3 mg (0.3 mL), Subcutaneous, ONCE PRN, 1 dose, Starting on Thu06/14/18 at 0839, Until Thu06/14/18 at 1420, for discomfort with PIV insertion, Day of Surgery (Day of Procedure), Routine lidocaine-EPINEPHrine 2 %-1:200,000 injection (CANCELED) ONCE PRN, Starting on Thu06/14/18 at 1006, Until Thu06/14/18 at 1420, Intra-Operative (Intra-Procedure), Routine 1006 (Given - Provid er: Keith Wilson MD) sodium chloride 0.9 % flush 5-20 mL 5-20 mL, Intravenous, EVERY 1 MIN PRN, Starting on Thu06/14/18 at 0839, Until Thu06/14/18 at 1420, flush, Flush pertains to all indwelling lines. Flush per protocol found in the job aid using the link provided on this medication record., Day of Surgery (Day of Procedure), Routine documented in this encounter Care Teams Group Tester Relationship Specialty Start Date End Date Lorna Bal APRN [address] [place] [address] PCP - General Family Medicine 05/27/18 documented as of this encounter
--- OUTSIDE RECORDS SUMMARY | 2023-11-09 18:15 | XMS_ITS | Encounter Summary ---
Author Organization [facility] Address [facility] [place] [address] Care Team Providers Care Principal Systems Engineer Name Role Phone Emelyn Easley MD Primary Care Provider [phone] Reason for Visit * Reason Comments Follow Up Surgery Bilateral Girdle sto ne procedure Encounter Details Date Type Department Care Team (Late st Contact Info) Description 03/06/2017 11:40 AM EST Office [place] [address] Josse Mckee MD [facility] [place] [address] Acquired dysplasia of hip, unspecified laterality; Traumatic brain injury, without loss of consciousness, sequela Social History Tobacco Use Types Packs/Day Years [...] - Inhaled Oxygen Concentration - - Weight 56.7 kg (125 lb) 03/06/2017 12:09 PM EST verbal Height - - Body Mass Index 22.86 11/24/2016 1:33 PM EDT documented in this encounter Progress Notes * Vanda Carter PA - 03/06/2017 11:40 AM EST PATIENT NAME: Tana Cavazos AGE: 21 y.o.. MR#: [id number] ? DATE OF VISIT: 03/06/2017 ? STAFF: Today's covering physician is Dr. Mckee. ? HISTORY OF PRESENT ILLNESS: Tana Cavazos is a 21 y.o. 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 She was a patient of Dr. Brandt for many years. She had PSF of a severe scoliosis on 03/20/[address] Ramirez, with a residual curve. Her mother had discussed revision of this fusion surgery with Dr. Smith in the past. She underwent girdlestone procedure in July [address] Ramirez after previous bilateral proximal femoral valgus osteotomies with continued pain. She currently wears a [place] brace for her residual curve. She is non-ambulatory and uses a wheelchair. The right hip seems to be the most painful thing for her. She continues on oral Baclofen for tone [...] hand. ? RADIOLOGICAL STUDIES: I reviewed the bone scan done which shows mild difuse increased uptake in thehips bilaterally, which is symmetric. ? ASSESSMENT/PLAN: Tana Cavazos is a 21 y.o. female with spastic quadriplegic CP who presents today for follow up of her hips and spine. The bone scan was not that impressive in terms of the uptake in her hips, but atthis point her best option for pain relief may be injections of steroid into the hips, as well as botox/phenol at that time, done with physiatry at [facility]. Dr. Mckee gave them his card today and they will call if they would like to schedule these injections. Otherwise, they can follow up in 1 year with X-rays of the hips and spine. documented in this encounter Plan of Treatment Upcoming Encounters Date Type Department Care Team (Late st Contact Info) Description 11/19/2023 2:30 PM EDT TH Visit (TeleHealth) [place] [address] Lilli Joy APRN [facility] [place] [address] 11/30/2023 12:50 PM EDT [place] [address] 12/03/2023 12:30 PM EDT Office [place] [address] Hollie Ambriz MD [facility] [place] [address] documented as of this encounter Visit Diagnoses Diagnosis Acquired dysplasia of hip, unspecified laterality Traumatic brain injury, without loss of consciousness, sequela documented in this encounter Care Teams Principal Systems Engineer Relationship Specialty Start Date End Date Emelyn Easley MD [address] [place] [address] PCP - General Family Medicine 08/26/16 05/26/18 documented as of this encounter
--- OUTSIDE RECORDS SUMMARY | 2023-11-09 18:15 | XMS_ITS | Encounter Summary ---
Author Organization [facility]ly [facility] [place] [address] Care Team Providers Care Biofuels Research Scientist Name Role Phone Lorna Bal APRN Primary Care Provider [phone] Encounter Details Date Type Department Care Team (Latest Contact Info) Description 06/24/2022 Travel Social History Tobacco Use Types Packs/Day [...] Encounters Date Type Department Care Team (Late Contact Info) Description 11/19/2023 2:30 PM EDT TH Visit (TeleHealth) [place] [address] Lilli Joy [place]N [facility] [address] 11/30/2023 12:50 PM EDT [place] [address] 12/03/2023 12:30 PM EDT Office [place] [address] Hollie Ambriz MD [facility] [place] [address] documented as of this encounter Visit Diagnoses Not on filedocumented in this encounter Care Teams Biofuels Research Scientist Relationship Specialty Start Date End Date Lorna Bal, RESTAURANT AREA DIRECTOR [address] [place] [address] PCP - General Family Medicine 05/27/18 documented as of this encounter
--- OUTSIDE RECORDS SUMMARY | 2023-11-09 18:15 | XMS_ITS | Encounter Summary ---
Author Organization [facility] Address [facility] [place] [address] Care Team Providers Care Fine Arts Packer Name Role Phone Lorna Bal APRN Primary Care Provider [phone] Reason for Visit * Reason Comments Follow-up * Consultation (Routine) - Specialty Diagnoses / Procedures Referred By Karlo duarte Referred To Contact Dermatology Diagnoses Disorder of the skin and subcutaneous tissue, unspecified Lorna Bal APRN [address] [place] [address] [facility] Dermatology [address] [place] [address] Referral ID Status Reason Start Date Expiration Date V isits Requested Visits Authorized [id number] Consult, Test & Treat Connection [facility] PCP Updated and/or Approved 10/10/2019 10/09/2020 12 12 Encounter Details Date Type Department Care Team (Late st Contact Info) Description 10/31/2019 10:40 AM EDT Office Visit Dermatology at [facility] [address] [place] [address] Deanna Norton MD [facility] [address] [address] Intertrigo Social History Tobacco Use Types Packs/Day Years [...] as of this encounter Progress Notes * Deanna Norton MD - 10/31/2019 10:40 AM EDT DERMATOLOGY OUTPATIENT CLINIC NOTE Date of service: 10/31/2019 Tana Cavazos : 1995 Provider: Deanna Norton MD PROBLEM: left side crease SKIN HISTORY: - Okay to leave detailed message with results? With care givers - Skin cancer (including type): no ?? HPI Tana Cavazos is a 24 y.o. female. Established pt here with her career agent Nely. She has a creaseon the left side of her abdomen due to her scoliosis. It seems to get worse in the summer time. When not raw the caregiver uses intradry BID and when raw nystatin cream. It was reported that the PCP said maybe botox would help. Social History: Lives with home care providers in her own apartment. Wheelchair bound d/t CP Family History: None ADR: Allergies Allergen Reactions ??? Fluoxetine Other (See Comments) HIVES, HEART RACES ??? Tegaderm [Transparent Dressings] Itching and Dermatitis Please use [id number] CURRENT MEDICATIONS: Current Outpatient Medications Medication Sig Dispense Refill ??? Acetaminophen 500 mg/15 mL Liquid Take 15 mLs by mouth every 4 hours as needed. 1 Bottle 0 ??? ibuprofen (ADVIL;MOTRIN) 100 mg/5 mL Suspension Take 13.6 mLs by mouth every 4 hours as needed for Pain or Fever. 1 Bottle 0 ??? ammonium lactate (AMLACTIN) 12 % Cream Apply 2-3 times daily to affected area on arms and legs.385 g 0 ??? multivitamin (THERAGRAN) Tablet Take 1 tablet by mouth daily. ??? baclofen (LIORESAL) 10 mg Tablet Take 1 tablet by mouth 2 times daily. 180 tablet 0 ??? POLYETHYLENE GLYCOL 3350 (MIRALAX ORAL) Take by mouth daily. No current facility-administered medications for this visit. PROBLEM LIST: Patient Active Problem List Diagnosis Code ??? 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 Acquired dysplasia of hip, bilateral M21.859 ??? Edema leg R60.0 ??? Scoliosis M41.9 ??? Spasticity R25.2 ??? Presence of intrathecal baclofen pump Z97.8 ??? Right leg pain M79.604 ??? Fracture of femur, distal S72.409A ??? 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 Oriented X 3. Skin: denies other skin complaints EXAM General: NAD, pleasant, cooperative Skin: Focused skin examination of the abdomen and left flank was normal with the exception of the findings listed below. Significant skin findings: - left fold: slight erythema. No fissuring today ASSESSMENT/PLAN Intertrigo -- discussed use of botox and the difficulty of treating every ~6 months, will try other options prior to considering botox. If below does not work, can consider drysol or antiperspirant deodorant. -- start Rx: Hydrocortisone 2.5% cream mixed 1:1 with Rx: Ketoconazole cream BID when flaring or before flares up to 7 days -- continue use of nystatin powder and interdry RTC - 1 year for a follow up or sooner if problems arise. Note initiated and routed to physician for review and change by: CHENG CASTRO LPN I, Adam R Couitt, have performed the documentation for this encounter in the presence of and actingas a scribe for Deanna Norton MD. I, Dr. Deanna Norton, performed the visit service though my nurse assisted me in scribing the note. I reviewed and edited this note above, a scribed service performed by my nurse. On closure of this note I agree with the accuracy of the documentation. Deanna Norton MD Section of Dermatology [facility] documented in this encounter Plan of Treatment Upcoming Encounters Date Type Department Care Team (Late st Contact Info) Description 11/19/2023 2:30 PM EDT TH Visit (TeleHealth) [place] [address] Lilli Joy APRN [facility] [place] [address] 11/30/2023 12:50 PM EDT [place]oint[place] [address] 12/03/2023 12:30 PM EDT Office Visit [place] [address] Hollie Ambriz MD [facility] [place] [address] documented as of this encounter Visit Diagnoses Diagnosis Intertrigo Other specified erythematous condition documented in this encounter Care Teams Fine Arts Packer Relationship Specialty Start Date End Date Lorna Bal APRN [address] [place] [address] PCP - General Family Medicine 05/27/18 documented as of this encounter
--- OUTSIDE RECORDS SUMMARY | 2023-11-09 18:15 | XMS_ITS | Encounter Summary ---
Author Organization [facility] Address [facility] [place] [address] Care Team Providers Care Bookseamer Blindstitch Name Role Phone Emelyn Easley MD Primary Care Provider [phone] Encounter Details Date Type Department Care Team (Late st Contact Info) Description 01/20/2017 Telephone Orthopaedics at [facility] [place] [place] [address] Vanda Carter PA [facility] [place] [address] Social History Tobacco Use Types Packs/Day Years [...] encounter Miscellaneous Notes * Telephone Encounter - Aruna Jamil RN - 01/20/2017 12:57 PM EDT Returned call to patient's Mother, Javed, received voicemail, left message instructing per DEMI Carter-She should come back and see Dr. Mckee in February for follow up and to further discuss these results with him. Can you relay to mom that the bone scan showed increased uptake in both of her hip joints. Therefore, we can guess that a lot of her pain is actually from the hip joints. We would recommend trying steroid injections into the hip joints, which would be done at X-ray and can be done in the mean time before her visit with Dr. Mckee if she would like. She can also likely increase her Baclofen dose with whoever is currently managing that dose and prescription for Tana. Left contact number for questions/concerns * Telephone Encounter - Aruna Jamil RN - 01/20/2017 12:08 PM EDT Call from patient's mother requesting results from the Bone scan and next steps. Instructed would get her message to DEMI Carter for consideration. documented in this encounter Plan of Treatment Upcoming Encounters Date Type Department Care Team (Late st Contact Info) Description 11/19/2023 2:30 PM EDT TH Visit (TeleHealth) [place] [address] Lilli Joy APRN [facility] [place] [address] 11/30/2023 12:50 PM EDT Appointment [place] [address] 12/03/2023 12:30 PM EDT Office Visit [place] [address] Hollie Ambriz MD [facility] [place] [address] documented as of this encounter Visit Diagnoses Not on filedocumented in this encounter Care Teams Bookseamer Blindstitch Relationship Specialty Start Date End Date Emelyn Easley MD [address] [place] [address] PCP - General Family Medicine 08/26/16 05/26/18 documented as of this encounter
--- OUTSIDE RECORDS SUMMARY | 2023-11-09 18:15 | XMS_ITS | Encounter Summary ---
Author Organization [facility] Address [facility] [place] [address] Care Team Providers Care Behavioral Medical Director Name Role Phone Lorna Bal APRN Primary Care Provider [phone] Reason for Visit * Auth/Cert Specialty Diagnoses [...] Expiration Date Visits Re quested Visits Authorized [id number] 1 1 Encounter Details Date Type Department Care Team (Late st Contact Info) Description 06/14/2018 8:34 AM EST - 06/14/2018 12:20 PM EST Hospital Encounter [place] [phone] Keith Wilson MD [facility]ILL[place] [place] [address] Discharge Disposition: Home Social History Tobacco Use [...] Sign Reading Time Taken Comments Blood Pressure 128/58 06/14/2018 12:00 PM EST Pulse 95 06/14/2018 11:30 AM EST Temperature 36.1 ??C (97 ??F) 06/14/2018 11:15 AM EST Respiratory Rate 20 06/14/2018 12:00 PM EST Oxygen Saturation 97% 06/14/2018 12:00 PM EST Inhaled Oxygen Concentration - - Weight [...] closest emergency room or call the hospital refinery operator vapor recovery unit at [phone] and ask for physician intervention nurse covering for your physician. Questions or problems after 5pm or on a weekend: Call the [facility] refinery operator vapor recovery unit at and ask for the physician intervention nurse covering for your doctor. * Patient Instructions* [...] may be helpful. Most swelling will occur onegxc64-06 hours following the procedure. Mouth Rinse: Vigorous [...] can be reached during office hours at [phone]. If you have questions atnight or on weekends, Dr. Wilson can be reached at [phone]. documented in this encounter Medications at Time [...] BOTH LEGS performed by BARRERA OLIVER at [facility] MAIN OR ? ? PRO I&D, POST SPINE, LUMB/SACR/LUMBOSAC N/A 05/20/2014 @I & D, OPEN, DEEP ABSCESS, LUMBAR, SACRAL, LUMBOSACRAL performed by Freddy Isbell MD at [facility] MAIN OR ? ? PRO I&D, POST SPINE, LUMB/SACR/LUMBOSAC N/A 05/26/2014 @I & D, OPEN, DEEP ABSCESS, LUMBAR, SACRAL, LUMBOSACRAL performed by Freddy Isbell MD at [facility] MAIN OR ??? PRO OSTEOTOMY FEMUR SHAFT/SUPRACONDY 08/15/2010 ??OSTEOTOMY, FEMUR SHAFT OR SUPRACONDYLAR W/O FIXATION performed by BARRERA OLIVER at [facility] MAIN OR ??? PRO RECONSTRUC HIP SOCKET, RESEC FEM HEAD 08/15/2010 ??ACETABULOPLASTY (GIRDLESTONE), RESECTION FEMORAL HEAD, BILATERAL performed by [facility] ??? PRO REMOVAL DEEP IMPLANT 08/15/2010 REMOVAL IMPLANT, DEEP, BRUNO performed by BARRERA OLIVER at [facility] MAIN OR ??? PRO REMOVE INFUSN DEVICE/PUMP N/A 05/11/2014 REMOVAL OF SPINE INFUSION PUMP performed by Jamaal aSmuel MD at [facility] MAIN OR ??? PRO REMOVE SPINAL CANAL CATHETER N/A 05/11/2014 REMOVAL OF INTRATHECAL OR EPIDURAL CATHETER performed by Jamaal Samuel MD at [facility] OR ??? PRO REPR, DURAL/CSF LEAK, NOT REQ LAMINECTOMY N/A 05/20/2014 @REPAIR DURAL\CSF LEAK,NOT REQUIRING LAMINECTOMY performed by Freddy Isbell MD at [facility] OR Allergies Allergen Reactions ??? Fluoxetine Other (See Comments) HIVES, HEART RACES ??? Tegaderm [Transparent Dressings] Itching and Dermatitis Please use [id number] No current facility-administered medications on file prior [...] TOOTH (WRVU 1.09) No flowsheet data found. [place] PDMP QUERY DATE: 02/18/19 Risk Assessment Category: Low Tana S Cavazos is getting a prescription opioid for [...] No future appointments. Keith Wilson DMD, MD fluorescent lamp replacer documented in this encounter Miscellaneous Notes * Op Note - Keith Wilson MD - 06/14/2018 11:06 AM EST [facility] [place] Patient Name: Tana Cavazos : [id number] MR#: [id number] Case Date: 06/14/2018 Surgeon: Surgeon(s) and Role: [...] draped in the standard fashion for behavioral medical director. The oral cavity was suctioned and an [...] tooth #32. Mucoperiosteum was reflected laterally andthe [employer] drill was used to remove bone overlying [...] EDT TH Visit (TeleHealth) [place] [address] Lilli Joy APRN [facility] [place] [address] 11/30/2023 12:50 PM EDT Appointment [place] [address] 12/03/2023 12:30 PM EDT Office Visit [place] [address] Hollie Ambriz MD [facility] [place] [address] documented as of this encounter Procedures Procedure [...] MAR Action Action Date Dose Rate Site fentaNYL (PF) 50mcg/mL injection 12.5-25 mcg, Intravenous, EVERY 5 MIN PRN, Starting on 06/14/18 at 1157, Until Thu06/14/18 at 1420, Pain, [...] fentanyl for breakthrough pain., PACU Recovery, Routine ibuprofen (ADVIL;MOTRIN) 100 mg/5 mL suspension 300 [...] Day of Surgery (Day of Procedure), Routine sodium chloride 0.9 % flush 5-20 mL [...] Routine documented in this encounter Care Teams Behavioral Medical Director Relationship Specialty Start Date End Date Lorna Bal APRN [address] [place] [address] PCP - General Family Medicine 05/27/18 documented as of this encounter
--- OUTSIDE RECORDS SUMMARY | 2023-11-09 18:15 | XMS_ITS | Encounter Summary ---
Author Organization [facility] [place] [address] Care Team Providers Care Sales Representative Metals Name Role Phone Emelyn Easley MD Primary Care Provider [phone] Reason for Visit * Auth/Cert Specialty Diagnoses / Procedures Referred By Contac t Referred To Contact Diagnoses TBI, W/O LOC, SEQUEIA/ACQUIRED DYSPLASIA OF HIP Procedures PRO ANESTH, CAT/MRI SCAN, RADIATN THERAPY BONE SCAN Referral ID Status Reason Start Date Expiration Date Visits Re quested Visits Authorized [id number] 1 1 Encounter Details Date Type Department Care Team (Latest Contact Info) Description 12/30/2016 2:57 PM EDT - 12/30/2016 11:59 PM EDT Hospital Encounter [place] [address] Josse Mckee MD [facility] [place] [address] Discharge Disposition: Home Social History Tobacco Use [...] TH Visit (TeleHealth) Infect[place] [address]1000 Lilli Joy APRN [facility] [place] [address] 11/30/2023 12:50 PM EDT Appointment [place] [address] 12/03/2023 12:30 PM EDT Office Visit [place] [address] Hollie Ambriz MD [facility] [place] [address] documented as of this encounter Procedures Procedure [...] at 12/30/2016 5:18 PM Josse Mckee MD IMG NM ORDERABLES documented in this encounter Visit Diagnoses Not on filedocumented in this encounter Care Teams Sales Representative Metals Relationship Specialty Start Date End Date Emelyn Easley MD [address] [address] PCP - General Family Medicine 08/26/16 05/26/18 documented as of this encounter
--- OUTSIDE RECORDS SUMMARY | 2023-11-09 18:15 | XMS_ITS | Encounter Summary ---
Author Organization [facility] Address [facility] [place] [address] Care Team Providers Care Operating Room Orderly Name Role Phone Lorna Bal APRN Primary Care Provider [phone] Encounter Details Date Type Department Care Team (Late st Contact Info) Description 06/30/2022 Orders [place] [address] Sergey Keane MD [facility] INFECTIOUS [place] [address] 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 Social History Tobacco Use Types [...] EDT TH Visit (TeleHealth) [place] [address] Lilli Joy APRN [facility] [place] [address] 11/30/2023 12:50 PM EDT [place] [address] 12/03/2023 12:30 PM EDT Office [place] [address]1000 Hollie Ambriz MD [facility] [place] [address] documented as of this encounter Visit Diagnoses Diagnosis 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 Acute osteomyelitis, other specified site documented in this encounter Additional Health Concerns Infection Onset Date Last Indicated Resolved Time Parainfluenza Virus 06/28/2022 06/28/2022 07/10/19 23 8:09 PM EDT Rule Out COVID-19 07/28/2022 07/29/2022 07/29/2022 12:36 AM EDT Rule Out COVID-19 07/28/2022 07/28/2022 07/29/2022 2:25 AM EDT Enterovirus / Rhinovirus 07/28/2022 07/28/2022 8:09 PM EDT Rule Out Respiratory 07/29/2022 07/29/2022 023 2:25 AM EDT documented as of this encounter Care Teams Operating Room Orderly Relationship Specialty Start Date End Date Lorna Bal APRN [address] [place] [address] PCP - General Family Medicine 05/27/18 documented as of this encounter
--- OUTSIDE RECORDS SUMMARY | 2023-11-09 18:15 | XMS_ITS | Encounter Summary ---
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, SEQUEIA/ACQUIRED DYSPLASIA OF HIP Procedures PRO ANESTH, CAT/MRI SCAN, RADIATN THERAPY BONE SCAN Referral ID Status Reason Start Date Expiration Date Visits Re quested Visits Authorized [id number] 1 1 Encounter Details Date Type Department Care Team (Late st Contact Info) Description 12/30/2016 3:23 PM [place] [address] Gaby Cantu MD [facility] [place] [address] Sidney Lawson MD [facility] [place] [address] Anesthesia Record Procedure Summary Procedure Name Responsible Anesthesiologist Anesthesia Start Time Anesthesia Stop Time BONE SCAN Gaby Cantu MD 12/30/16 1523 12/30/16 1608 Events Date Time Event Comment 12/30/2016 1512 1523 Start 1529 AN Verify 1530 An Start Data 1531 Anesthesia Ready 1600 an stop data 1601 Transport 1607 Recovery or ICU Handoff Nori ent care was transferred to the destination unit staff after review of the patient's medical history, current anesthetic/surgical status and plan, according to the Provider Handoff Checklist. 1608 Stop Meds Name Total Propofol 30 mg Propofol INF 360.18 mg * Agents Name O2 * Blood No blood administrations on file. [...] 1715 by Philippe Bonner Incision 05/26/14; abdomen; other (see comments) (previous incision site); 12/23/21 (LDA [...] Thomas RN 12/23/21 1715 by Philippe Bonner Urethral Catheter 12/30/16; 1315; Physician order; Physician order, other (see comments); indwelling single lumen catheter (patient incontinent; 1st scan aborted & rescheduled today); 100% silicone; 14; inserted at this facility; 2; none; 12/30/16; 165112/30/16 1315 by Sarahy Fregoso RN 12/30/16 165 by Dana Antonio RN (RETIRED) Peripheral IV Line - Single Lumen 12/30/16; 1322; metacarpal vein (top of hand), right; 22 gauge; distraction, intradermal injection, tolerated well; 12/30/16; 165112/30/16 1322 by Ramiro Aden LPN 12/30/16 1652 by Dana Antonio RN documented in this encounter Social History [...] OR Notes * Anesthesia Postprocedure Evaluation - Sidney Lawson MD - 12/30/2016 4:27 PM EDT [facility] [place]esthesiology Post-procedure Note Patient: Tana Cavazos Procedure Summary Date Anesthesia Start Anesthesia Stop Room / Location 12/30/16 1523 1608 [facility] ADULT RADIOLOGY / [facility] Procedure Diagnosis Surgeon Responsible Provider BONE SCAN (N/A ) (TBI, W/O LOC, SEQUEIA/ACQUIRED DYSPLASIA OF HIP) RESOURCE, ANESTHESIA-Gaby Hallman MD All Anesthesia Providers: Anesthesiologist: Gaby Cantu MD Tube Bender Hand: Sidney Lawson MD Last (1hr) Vitals: BP (!) 80/50 (12/30/16 1608) Temp 36.2 ??C (97.2 ??F) (12/30/16 1608) Pulse 93 (12/30/16 1608) Resp 16 (12/30/16 1608) SpO2 97 % (12/30/16 1608) Patient Location: PACU/[facility] Level of Consciousness: Awake and Alert Pain Management: Satisfactory Analgesia PONV: None Cardiovascular Status: At Baseline Respiratory Status: At Baseline Postoperative Fluid Status: Intravascular EUvolemia Possible Anesthetic Complications: NONE apparent at time of evaluation Final Primary Anesthesia Type: MAC (The anesthetic type performed was the same as planned.) Comments: * Anesthesia Preprocedure Evaluation - Gaby Cantu MD - 12/26/2016 12:13 PM EDT Pre-Anesthesia Evaluation for: Tana Cavazos a 21 y.o. female. Procedure(s): BONE SCAN Patient Active Problem List Diagnosis ??? Fracture [...] BOTH LEGS performed by BARRERA OLIVER at [facility] OR ? ? PRO I&D, POST SPINE, LUMB/SACR/LUMBOSAC N/A 05/20/2014 @I & D, OPEN, DEEP ABSCESS, LUMBAR, SACRAL, LUMBOSACRAL performed by Freddy Isbell MD at [facility] OR ? ? PRO I&D, POST SPINE, LUMB/SACR/LUMBOSAC N/A 05/26/2014 @I & D, OPEN, DEEP ABSCESS, LUMBAR, SACRAL, LUMBOSACRAL performed by Freddy Isbell MD at [facility] OR ??? PRO OSTEOTOMY FEMUR SHAFT/SUPRACONDY 08/15/2010 ??OSTEOTOMY, FEMUR SHAFT OR SUPRACONDYLAR W/O FIXATION performed by BARRERA OLIVER at [facility] OR ??? PRO RECONSTRUC HIP SOCKET, RESEC FEM HEAD 08/15/2010 ??ACETABULOPLASTY (GIRDLESTONE), RESECTION FEMORAL HEAD, BILATERAL performed by BARRERA OLIVER Critical access hospital OR ??? PRO REMOVAL DEEP IMPLANT 08/15/2010 REMOVAL IMPLANT, DEEP, BRUNO performed by BARRERA OLIVER at [facility] OR ??? PRO REMOVE INFUSN DEVICE/PUMP N/A 05/11/2014 REMOVAL OF SPINE INFUSION PUMP performed by Jamaal Saumel MD at [facility] OR ??? PRO REMOVE SPINAL CANAL CATHETER N/A 05/11/2014 REMOVAL OF INTRATHECAL OR EPIDURAL CATHETER performed by Jamaal Samuel MD at [facility] MA[facility] OR ??? PRO REPR, DURAL/CSF LEAK, NOT REQ LAMINECTOMY N/A 05/20/2014 @REPAIR DURAL\CSF LEAK,NOT REQUIRING LAMINECTOMY performed by Freddy Isbell MD at [facility] MA[facility] OR Social History Substance Use Topics ??? Smoking status: Never Smoker ??? Smokeless tobacco: Never Used Comment: NO SMOKERS IN THE HOME ??? Alcohol use No History Drug Use No Allergies Allergen Reactions ??? Fluoxetine Other (See Comments) HIVES, HEART RACES ??? Tegaderm [Transparent Dressings] Itching and Dermatitis Please use [id number] Medications: MAR and/or home medications have been reviewed. Physical Exam: There were no vitals filed for this visit. There is no height or weight on file to calculate BMI. Airway Assessment: Proven grade I airway Cardiovascular Assessment: Rhythm: regular Rate: normal Pulmonary Assessment: Dental Assessment: Misc Assessment: IV access: Peripheral line Anesthesia Plan: ASA 2 MAC, with a(n) intravenous induction 21 y.o. 52 kg F with spastic quadroplegic CP presenting for nuc med bone scan under anesthesia to eval for source of chronic pain. PMH: TBI at 1 y.o, numerous anesthetic for pressure related wound debridements and orthopaedic injuries. She takes PO baclofen and has allergies to fluoxetine and tegaderms Proven grade 1 airway Plan: MAC with GA backup, asa monitors Region - Other Informed Consent: Anesthetic plan and risks discussed with patient and mother. Plan discussed with attending and resident. PAT Staff Note documented in this encounter Plan of Treatment Upcoming Encounters Date Type Department Care Team (Late st Contact Info) Description 11/19/2023 2:30 PM EDT TH Visit (TeleHealth) [place] [address] Lilli Joy APRN [facility] [place] [address] 11/30/2023 12:50 PM EDT [place] [address] 12/03/2023 12:30 PM EDT Office Visit Infectious Disease at [facility] [place] [address] Hollie Ambriz MD [facility] [place] [address] documented as of this encounter Visit Diagnoses Not on filedocumented in this encounter Administered Medications Inactive Administered Medications - up to 3 most recent administrations Medication Order MAR Action Action Date Dose Rate Site propofol (DIPRIVAN) 10 mg/mL bolus injection (Anesthesia) PRN, Starting on Thu12/30/16 at 1518, Until Thu12/30/16 at 1619, Anesthesia Intra-op Given 12/30/2016 3:18 PM EDT 30 mg propofol (DIPRIVAN) infusion CONTINUOUS PRN, Starting on Thu12/30/16 at 1517, Until Thu12/30/16 at 1619, Anesthesia Intra-op, Routine New Bag 12/30/2016 3:17 PM EDT 150 mcg/kg/min 47 mL/hr documented in this encounter Care Teams Ophthalmic Dispenser Relationship Specialty Start Date End Date Emelyn Easley MD [address] [place] [address] PCP - General Family Medicine 08/26/16 05/26/18 documented as of this encounter
--- OUTSIDE RECORDS SUMMARY | 2023-11-09 18:15 | XMS_ITS | Encounter Summary ---
[place] [address] Care Team Providers Care Oracle Ebs Consultant Name Role Phone Lorna Bal APRN Primary Care Provider [phone] Encounter Details Date Type Department Care Team (Late st Contact Info) Description 06/19/2022 Telephone [place] [id number] Gurdeep Simmons MD [facility] [place] [address] Social History Tobacco Use Types Packs/Day Years [...] encounter Miscellaneous Notes * Telephone Encounter - Gurdeep Simmons MD - 06/19/2022 4:51 PM EST ORTHOPAEDIC SURGERY TRANSFER [facility] CALL: Received a call from Kelly Landa APRN at [facility] regarding Tana Cavazos through the transfer center. In summary, Tana Cavazos is a 27 y.o. female with a PMHx of spastic quadriplegia CP, scoliosis s/p PSF (03/20/09), prior bilateral girdlestones (2010 Dr. Ramirez). She was brought to her PCP 4 days ago for evaluation of cellulitis on her back and was subsequently started on Keflex and has had improvement in the cellulitis. Tana was brought to the ED today byher photo mask pattern generator as there was some concern for having perceived pain her back (patient is non-verbal).Per report, examination by providers at [facility] do not demonstrate evidence of pain, with minimal erythema in the back, no evidence of draining wounds, or areas of fluctuance, and the patient is at her baseline neurologic state without new deficits. Radiographs were obtained which do not demonstrate any evidence of hardware loosening, or change in alignment of hardware. An ultrasound was performed, which demonstrated an 8mm x 9mm subcutaneous fluid collection which may represent an abscess, seroma, or resolving hematoma. The patient was evaluated by orthopaedics at [facility] (Dr. Weiss) who did not recommend attempting to aspirate the area. Inflammatory labs today are: WBC: 7, CRP: 7.5. She is afebrile, and there have been no fevers since the time she began oral antibiotics for the cellulitis. As the patient is not having pain on examination per provider report, and is not having any neurologic deficits, I recommended that she continue her antibiotic course for the cellulitis, and that shemay follow up in the spine clinic if she does not continue to see improvement. All provider questions were answered. Gurdeep Simmons MD Orthopaedic Surgery 5408 documented in this encounter Plan of Treatment Upcoming Encounters Date Type Department Care Team (Late st Contact Info) Description 11/19/2023 2:30 PM EDT TH Visit (TeleHealth) Infectious Disease at [facility] [place] [address] Lilli Joy APRN [facility] [place] [address] 11/30/2023 12:50 PM EDT [place] [address] 12/03/2023 12:30 PM EDT Office [place] [address] Hollie Ambriz MD [facility] [place] [address] documented as of this encounter Visit Diagnoses Not on filedocumented in this encounter Care Teams Oracle Ebs Consultant Relationship Specialty Start Date End Date Lorna Bal APRN [address] [place] [address] PCP - General Family Medicine 05/27/18 documented as of this encounter
--- OUTSIDE RECORDS SUMMARY | 2023-11-09 18:15 | XMS_ITS | Encounter Summary ---
Author Organization [facility] [place] [address] Care Team Providers Care Brake Coupler Dinkey Name Role Phone Emelyn Easley MD Primary Care Provider [phone] Reason for Visit * Reason Onset Date Comments Appointment 02/05/2017 Encounter Details Date Type Department Care Team (Late st Contact Info) Description 02/05/2017 Telephone [place] [phone] Sarah Shah APRN [facility] [place] [address] Appointment Social History Tobacco Use Types Packs/Day Years [...] encounter Miscellaneous Notes * Telephone Encounter - Ines Bueno - 02/05/2017 2:32 PM EDT Patient scheduled * Telephone Encounter - BuenoAlisapepe Gilbert - 02/05/2017 2:28 PM EDT LM # 1 to schedule follow up with VINCENT DELACRUZ on March 06 for XR CP SP BILAT GIRDLE STONE PROCEDURE. documented in this encounter Plan of Treatment Upcoming Encounters Date Type Department Care Team (Late st Contact Info) Description 11/19/2023 2:30 PM EDT TH Visit (TeleHealth) [place] [address] Lilli Joy APRN [facility] [place] [address] 11/30/2023 12:50 PM EDT [place] [address] 12/03/2023 12:30 PM EDT Office [place] [address] Hollie Ambriz MD [facility] [place] [address] documented as of this encounter Visit Diagnoses Not on filedocumented in this encounter Care Teams Brake Coupler Dinkey Relationship Specialty Start Date End Date Emelyn Easley MD [address] [place] [address] PCP - General Family Medicine 08/26/16 05/26/18 documented as of this encounter
--- OUTSIDE RECORDS SUMMARY | 2023-11-09 18:15 | XMS_ITS | Encounter Summary ---
Author Organization [facility] Address [facility] [place] [address] Care Team Providers Care Instrumentation Engineering Technician Name Role Phone Emelyn Easley MD Primary Care Provider [phone] Reason for Visit * Reason Comments Rash * Consultation (Routine) - Closed Specialty Diagnoses / Procedures Referred By Karlo duarte Referred To Contact Dermatology Diagnoses RASH TO UPPER EXTREMITIES EXTENDS TO RIGHT SIDE. Lorna Bal APRN [address] [place] [address] [facility] [address] [place] [address] Referral ID Status Reason Start Date Expiration Date V isits Requested Visits Authorized [id number] Closed Consult, Test & Treat Connection [facility] 09/15/2017 09/15/2018 1 1 Encounter Details Date Type Department Care Team (Late st Contact Info) Description 11/16/2017 9:00 AM EDT Office Visit Dermatology at [facility] [address] [place] [address] Emili Mcdonald MD [facility] [address] GURDEEP [place] [address] Keratosis pilaris (Primary Dx); Multiple benign nevi Social History Tobacco Use Types Packs/Day Years [...] as of this encounter Progress Notes * Emili Mcdonald MD - 11/16/2017 9:00 AM EDT Images from the original note were not included. DERMATOLOGY - NEW PATIENT NOTE Date of service: 11/16/2017 Tana Cavazos : 1995, 22 y.o. CC: Rash and moles. HPI: Tana Cavazos is a 22 y.o. female referred by Lorna Bal with the following concerns: here w home care providers, [place]. Rash on arms. Does not itch. Present for at least one year. Denies hx of seasonal allergies. No hx of asthma. Unknown family history. Also has a few moles on the R leg and neck which home care providers wanted checked. Asymptomatic. Relevant Skin History: - Okay to leave detailed message with results? With care givers - Skin cancer (including type): no Family History: Melanoma: no Relevant Social History: - lives with home care providers in her own apartment. Wheelchair bound d/t CP Meds: Current Outpatient Prescriptions Medication Sig Dispense Refill ??? multivitamin (THERAGRAN) Tablet Take 1 tablet by mouth daily. ??? baclofen (LIORESAL) 10 mg Tablet Take 1 tablet by mouth 2 times daily. 180 tablet 0 ??? levonorgestrel-ethinyl estradiol (INTROVALE) 0.15-30 mg-mcg per tablet Take 1 tablet by mouth daily. ??? POLYETHYLENE GLYCOL 3350 (MIRALAX ORAL) Take by mouth daily. No current facility-administered medications for this visit. Allergies: Allergies Allergen Reactions ??? Fluoxetine Other (See Comments) HIVES, HEART RACES ??? Tegaderm [Transparent Dressings] Itching and Dermatitis Please use [id number] Review of Systems: - General: Feels well. - Skin: No other skin concerns. Examination: - Constitutional: Patient was alert, well-appearing and in no noticeable distress. - Skin: Patient was asked to disrobe to the level of their comfort. Examination of skin from the waist up was performed. This includes examination of the skin of the face, ears, neck, chest, axillae,left and right upper extremities, hands, back, and abdomen. Diagnosis/Skin findings/Assessment/Plan: 1. Keratosis pilaris (KP) - Bilateral arms: spiny follicular based papules with slight erythema. Counseled: Keratosis pilaris is a very common condition characterized by rough skin-colored to erythematous follicular papules. The pathogenesis is due to abnormal retention of sloughed skin cells within hair follicles. Most often the papules arise on the cheeks, thighs, and outer aspect of the upper arms or forearms. When it is present only on the cheeks in babies it does tend to resolve with time, while those babies with more widespread involvement it is more often persistent. Keratosis pilaris is particularly prevalent in those with atopic dermatitis and tends to be more severe during the winter months or in low humidity environments. Although it can be bothersome, it is completely harmless. Unfortunately there is no effective treatment aside from gentle skin care and emollients. - Rx: Ammonium lactate daily OTC hydrocortisone if itchy. 2. Multiple benign nevi: 8 mm brown macule with a central darker macule on R mejia. Lower neck 4 mm pedunculated papule. -educated the patient on the ABCDE of skin cancer and melanoma. The patient is aware that a melanoma can arise from an existing mole, and that if any of the features of the ABCDE or spontaneous bleeding occur, the patient was instructed to return for an evaluation -recommended the patient's to monitor the back and posterior legs every 2-3 months, encouraged photodocumentation - wear sunscreen and broad-rimmed hat RTC: As needed. Note initiated by KENYA ARTHUR LPN. I performed the above scribed service and agree with the accuracy of the documentation in this encounter. Reviewed and signed by Emili Mcdonald MD Resident in Dermatology [facility] Patient seen in conjunction with staff theater company producer: Wally Araya MD Section of Dermatology [facility] Level of Resident Supervision: Direct Supervision (The supervising physician is physically present with the resident and patient). * Wally Araya MD - 11/16/2017 9:00 AM EDT I directly supervised Dr. Mcdonald in the care of this patient. I saw and evaluated this patient with Dr. Mcdonald. He presented the history and physical exam details to me, then we saw the patient together and I confirmed these findings. I agree with details as written. My physical examination confirms Dr. Mcdonald's findings. The assessment and plan were formulated in discussion with me at the time of visit and I agree withthem as documented. WALLY ARAYA MD FAAD Staff Physician documented in this encounter Plan of Treatment Upcoming Encounters Date Type Department Care Team (Late st Contact Info) Description 11/19/2023 2:30 PM EDT TH Visit (TeleHealth) [place] [address] Lilli Joy APRN [facility] [place] [address] 11/30/2023 12:50 PM EDT Appointment [place] [address] 12/03/2023 12:30 PM EDT Office Visit [place] [phone] Hollie Ambriz MD [facility] [place] [address] documented as of this encounter Visit Diagnoses Diagnosis Keratosis pilaris- Primary Other specified congenital anomaly of skin Multiple benign nevi Benign neoplasm of skin, site unspecified documented in this encounter Care Teams Instrumentation Engineering Technician Relationship Specialty Start Date End Date Emelyn Easley MD [address] [place] [address] PCP - General Family Medicine 08/26/16 05/26/18 documented as of this encounter
--- OUTSIDE RECORDS SUMMARY | 2023-11-09 18:16 | XMS_ITS | Encounter Summary ---
Author Organization [facility] Address One [facility] [place] [address] Care Team Providers Care Traveling Storekeeper Name Role Phone Naina Lindsey MD Primary Care Provider [phone] Encounter Details Date Type Department Care Team (Latest Contact Info) Description 11/09/2014 11:01 AM EDT - 11/09/2014 11:59 PM EDT Hospital Encounter XRay at [address] [place] [address] Acquired dysplasia of hip, unspecified laterality; Traumatic brain injury, sequela; Spasticity; Scoliosis; Right leg pain Social History Tobacco Use Types Packs/Day Years [...] Sig Dispensed Refills Start Date End Date bisacodyl (DULCOLAX) [address] 1 suppository rectally daily as needed. 60 suppository 3 06/02/2014 11/24/2016 acetaminophen (TYLENOL) 650 mg/20.3 mL Solution Take 22.3 mLs by mouth every 6 hours. 05/12/2014 11/24/2016 diaZEPam (VALIUM) 5 mg/5 mL (5 mL) Solution Take 5 mLs by mouth 2 times daily. 100 mL 0 05/12/2014 11/24/2016 levonorgestrel-ethi nyl estradiol (INTROVALE) 0.15-30 mg-mcg per tablet Take 1 tablet by mouth daily. 03/18/2019 POLYETHYLENE GLYCOL 3350 (MIRALAX ORAL) Take 17 g by mouth as needed. 11/20/2010 07/09/2022 baclofen (LIORESAL) 10 mg tablet 10 MG = 1 Tablet(s), PO, QPM 07/11/2010 11/24/2016 ibuprofen (ADVIL;MOTRIN) 100 mg/5 mL suspension 300 mg, PO, Q6H prn 07/11/2010 documented as of this encounter Plan of Treatment Upcoming Encounters Date Type Department Care Team (Late st Contact Info) Description 11/19/2023 2:30 PM EDT TH Visit (TeleHealth) [place] [address] Lilli Joy APRN [facility] [place] [address] 11/30/2023 12:50 PM EDT [place] [address] 12/03/2023 12:30 PM EDT Office [place] [address] Hollie Ambriz MD [facility] [place] [address] documented as of this encounter Procedures Procedure Name Priority Date/Time Associated Diagnosis Comments XR FEMURS 2 VIEWS BILAT Routine 11/09/2014 12:06 PM EDT Acquired dysplasia of hip, unspecified laterality Traumatic brain injury, sequela Spasticity Scoliosis Right leg pain documented in this encounter Results * (ABNORMAL) XR Bilateral Femurs 2 Views (11/09/2014 12:06 PM EDT) Anatomical Region Laterality Modality Thigh Bilateral Radiographic Becca ging 11/09/2014 12:0 6 PM EDT Addenda Addendum by Marci Bee MD on 11/23/2014 1:47 PM EDT Addendum Begins TECHNIQUE: ??Multiple views bilateral femurs. Addendum Ends Addendum by SHANNON, UNSIGNED REPORT on 11/23/2014 1:47 PM EDT Addendum Begins TECHNIQUE: ??Multiple views bilateral femurs. Addendum Ends Addendum by SHANNON, UNSIGNED REPORT on 11/23/2014 1:31 PM EDT Addendum Begins TECHNIQUE: ??Multiple views bilateral femurs. Addendum Ends Narrative 11/09/2014 1:57 PM EDT EXAMINATION: BILATERAL FEMURS 2 VIEWS CLINICAL HISTORY: Spasticity, osteopenia, assess for R (and possible L) distal femur fx TECHNIQUE: COMPARISON: Pelvic Radiographs of August [address] abdomen from April 2014 FINDINGS: Right femur: Bones: No acute fracture. Decrease bone mineralization related to disuse. 1. ??Femur-Malunited supracondylar fracture of the distal right femur. The fracture lines are completely obliterated. The healed fracture has a 90 degree angulation with apex posterior. The femur is gracile representing nonweightbearing state. ?? 2. ??Sacrum: The right sacral screw this is no longer connected to the spinal meredith. Consider supplementary spine exam as the Spine fixation hardware are not included in entirety. Joints: 1. 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 Irregular heterotopic bone formations at the empty acetabular cup. 2. ??Right knee: Knee in flexion on all images and therefore, difficult to evaluate. Soft tissue: Grossly normal Left femur: Bones: No fracture is present. Left femur-gracile left femur related to disuse. Absent left femoral head results from ??prior Girdlestone procedure. Joints: 1. ??Left hip-absent left femoral head related to Girdlestone procedure. There are small well-corticated heterotopic bone formation in the empty acetabulum. 2. ??The left knee is flexed and there is a high riding patella Soft tissue: Normal. Impression 1. ??No acute fracture 2. ??unchanged bilateral Girdlestone surgery with absent femoral heads 3. ??Malunited supracondylar fracture of the right distal femur with angular deformity. 4. ?? Possible separation of the right sacral screw and the spinal meredith. Consider supplementary pelvic radiograph. Unexpected finding Resulting Agency Comment Unexpected Finding Procedure Note Marci Bee MD / SHANNON, UNSIGNED REPORT - 11/23/2014 EXAMINATION: BILATERAL FEMURS 2 VIEWS CLINICAL HISTORY: Spasticity, osteopenia, assess for R (and possible L)distal femur fx TECHNIQUE: COMPARISON: Pelvic Radiographs of August [address] abdomen from April2014 FINDINGS: Right femur: Bones: No acute fracture. Decrease bone mineralization related to disuse. 1. Femur-Malunited supracondylar fracture of the distal right femur.The fracture lines are completely obliterated. The healed fracture has a 90degree angulation with apex posterior. The femur is gracile representing nonweightbearing state. 2. Sacrum: The right sacral screw this is no longer connected to thespinal meredith. Consider supplementary spine exam as the Spine fixation hardware arenot included in entirety. Joints: 1. Right hip Prior Girdlestone procedure results in absence of rightfemoral head. Irregular heterotopic bone formations at the empty acetabular cup. 2. Right knee: Knee in flexion on all images and therefore, difficultto evaluate. Soft tissue: Grossly normal Left femur: Bones: No fracture is present. Left femur-gracile left femur related to disuse. Absent left femoralhead results from prior Girdlestone procedure. Joints: 1. Left hip-absent left femoral head related to Girdlestone procedure.There are small well-corticated heterotopic bone formation in the emptyacetabulum. 2. The left knee is flexed and there is a high riding patella Soft tissue: Normal. Impression 1. No acute fracture 2. unchanged bilateral Girdlestone surgery with absent femoral heads 3. Malunited supracondylar fracture of the right distal femur withangular deformity. 4. Possible separation of the right sacral screw and the spinal meredith.Consider supplementary pelvic radiograph. Unexpected finding Mesha Cabral MD IMG DX ORDERABLES documented in this encounter Visit Diagnoses Diagnosis Acquired dysplasia of hip, unspecified laterality Traumatic brain injury, sequela Spasticity Abnormal involuntary movements Scoliosis Scoliosis (and kyphoscoliosis), idiopathic Right leg pain Pain in limb documented in this encounter Care Teams Traveling Storekeeper Relationship Specialty Start Date End Date Naina Lindsey MD [address] [place] [address] [place] [address] PCP - General 03/19/10 08/25/16 documented as of this encounter
--- OUTSIDE RECORDS SUMMARY | 2023-11-09 18:16 | XMS_ITS | Encounter Summary ---
Author Organization [facility] Address [facility] [place] [address] Care Team Providers Care Financial Operations Analyst Name Role Phone Naina Lindsey MD Primary Care Provider [phone] Encounter Details Date Type Department Care Team (Late st Contact Info) Description 11/09/2014 [place] [phone] Mesha Cabral MD [facility] [place] [address] Scoliosis Social History Tobacco Use Types Packs/Day Years [...] EDT TH Visit (TeleHealth) [place] [phone] Lilli Joy APRN [facility] [place] [address] 11/30/2023 12:50 PM ED[place] [address] 12/03/2023 12:30 PM EDT Office [place] [address] Hollie Ambriz MD [facility] DR [place] [address] documented as of this encounter Visit Diagnoses Diagnosis Scoliosis Scoliosis (and kyphoscoliosis), idiopathic documented in this encounter Care Teams Financial Operations Analyst Relationship Specialty Start Date End Date Naina Lindsey MD [address] [place] [address] [place] [address] PCP - General 03/19/10 08/25/16 documented as of this encounter
--- OUTSIDE RECORDS SUMMARY | 2023-11-09 18:16 | XMS_ITS | Encounter Summary ---
[place] [address] Care Team Providers Care Railway Signal Technician Name Role Phone Naina Lindsey MD Primary Care Provider [phone] Reason for Visit * Reason Onset Date Comments Referral 09/13/2014 Encounter Details Date Type Department Care Team (Late st Contact Info) Description 09/13/2014 Telephone [place] [phone] Emelyn Perez Referral Social History Tobacco Use Types Packs/Day Years [...] encounter Miscellaneous Notes * Telephone Encounter - Ruma Perez - 09/27/2014 8:00 AM EDT All ready scheduled. * Telephone Encounter - Love Chavez - 09/26/2014 9:49 AM EDT Parent requesting possible sooner eval not on a because it is for a scoliosis brace that is needed and she can't really wait until March. * Telephone Encounter - Emelyn Perez - 09/13/2014 2:54 PM EDT Message at home number to call to schedule appointment from referral: [facility] On a in [facility]. documented in this encounter Plan of Treatment Upcoming Encounters Date Type Department Care Team (Late st Contact Info) Description 11/19/2023 2:30 PM EDT TH Visit (TeleHealth) [place] [address] [facility] [place] [address] 11/30/2023 12:50 PM EDT [place] [address] 12/03/2023 12:30 PM EDT Office [place] [address] Hollie Ambriz MD [facility] [place] [address] documented as of this encounter Visit Diagnoses Not on filedocumented in this encounter Care Teams Railway Signal Technician Relationship Specialty Start Date End Date Naina Lindsey MD [address] [place] [address] PCP - General 03/19/10 08/25/16 documented as of this encounter
--- OUTSIDE RECORDS SUMMARY | 2023-11-09 18:16 | XMS_ITS | Encounter Summary ---
Author [facility] [place] [address] Care Team Providers Care Transformation Manager Name Role Phone Naina Lindsey MD Primary Care Provider [phone] Reason for Visit * Reason Onset Date Comments Appointment 10/12/2014 Encounter Details Date Type Department Care Team (Late st Contact Info) Description 10/12/2014 Telephone [place] [phone] Mesha Cabral MD [facility] DR [place] [address] Appointment Social History Tobacco Use Types Packs/Day [...] encounter Miscellaneous Notes * Telephone Encounter - Veronica Torres - 10/18/2014 8:23 AM EDT Not able to contact patient * Telephone Encounter - Nuvia Lott - 10/12/2014 11:12 AM EDT I have called and left a message for patient to call and schedule an appointment. Called to see if they would like a sooner appointment with Dr Cabral Appointment in January or later documented in this encounter Plan of Treatment Upcoming Encounters Date Type Department Care Team (Late st Contact Info) Description 11/19/2023 2:30 PM EDT TH Visit (TeleHealth) [place] [address] Lilli Joy, [place] [facility] [place] [address] 11/30/2023 12:50 PM EDT [place] [address] 12/03/2023 12:30 PM EDT Office [place] [address] Hollie Ambriz MD [facility] [place] [address] documented as of this encounter Visit Diagnoses Not on filedocumented in this encounter Care Teams Transformation Manager Relationship Specialty Start Date End Date Naina Lindsey [place] [address] PCP - General 03/19/10 08/25/16 documented as of this encounter
--- OUTSIDE RECORDS SUMMARY | 2023-11-09 18:16 | XMS_ITS | Encounter Summary ---
[place] [address] Care Team Providers Care Culinary Artist Name Role Phone Emelyn Easley MD Primary Care Provider [phone] Reason for Visit * Reason Onset Date Comments Appointment 12/10/2016 Encounter Details Date Type Department Care Team (Late st Contact Info) Description 12/10/2016 Telephone [place] [phone] Josse Mckee MD [address] [place] [address] Appointment Social History Tobacco Use Types Packs/Day [...] encounter Miscellaneous Notes * Telephone Encounter - Kristen Best - 12/17/2016 5:34 PM EDT Unable to contact, letter sent * Telephone Encounter - Ines Bueno - 12/16/2016 8:10 AM EDT LM#2 to reschedule patients bone scan with sedation and Catheter, new orders in. This is not for MRI just Bone Scan * Telephone Encounter - Renetta Denny - 12/11/2016 4:13 PM EDT Parent called to schedule patient's MRI. MRI stated the order was place incorrectly. Please place correct order so we can schedule. Patient would like to schedule around the end of month. Parent had a difficult time communicating with Dr. Mckee during previous MRI. * Telephone Encounter - Kristen Best - 12/11/2016 8:10 AM EDT LM#1 to reschedule patients bone scan with sedation, new orders in * Telephone Encounter - Ines Bueno - 12/10/2016 3:54 PM EDT Patient mother was upset that the Bone Scan Order was incorrectly placed in the system. The patient required citation and it wasn't order. Patient also required a catheter so the radiation fluid wouldn't come out of her body during the Bone Scan and that also wasn't order. Now the patient has to reschedule the appointment and a new order needs to be placed. documented in this encounter Plan of Treatment Upcoming Encounters Date Type Department Care Team (Late st Contact Info) Description 11/19/2023 2:30 PM EDT TH Visit (TeleHealth) Infectious Disease at [facility] [place] [address] Lilli Joy, [place] [facility] [place] [address] 11/30/2023 12:50 PM EDT Appointment [place] [address] 12/03/2023 12:30 PM EDT Office Visit [place] [address] Hollie Ambriz MD [facility] [place] [address] documented as of this encounter Visit Diagnoses Diagnosis Acquired dysplasia of hip, unspecified laterality Neuromuscular scoliosis of lumbar region Other kyphoscoliosis and scoliosis Traumatic brain injury, without LOC, sequela documented in this encounter Care Teams Culinary Artist Relationship Specialty Start Date End Date Emelyn Easley MD [address] [place] [address] PCP - General Family Medicine 08/26/16 05/26/18 documented as of this encounter
--- OUTSIDE RECORDS SUMMARY | 2023-11-09 18:16 | XMS_ITS | Encounter Summary ---
Author Organization [facility] Address One [facility] [place] [address] Care Team Providers Care Embroidery Cutter Name Role Phone Naina Lindsey MD Primary Care Provider [phone] Encounter Details Date Type Department Care Team (Latest Contact Info) Description 11/09/2014 11:01 AM EDT - 11/09/2014 11:59 PM EDT Hospital Encounter XRay at [address] [place] [address] Acquired dysplasia of hip, unspecified laterality; Traumatic [...] EDT TH Visit (TeleHealth) [place] [address] Lilli Joy APRN [facility] [place] [address] 11/30/2023 12:50 PM EDT Appointment [place] [address] 12/03/2023 12:30 PM EDT Office Visit [place] [address] Hollie Ambriz MD [facility] [place] [address] documented as of this encounter Procedures Procedure Name Priority Date/Time Associated Diagnosis Comments XR FOOT 2 VIEWS BILAT Routine 11/09/2014 12:06 PM EDT documented in this encounter Results * XR feet bilateral- 2 views (11/09/2014 12:06 PM EDT) Anatomical Region Laterality Modality Foot Bilateral Radiographic Becca ging 11/09/2014 12:0 6 PM EDT Impressions 11/09/2014 1:31 PM EDT IMPRESSION: Bilateral dorsiflexion deformities of both feet with probable pes planus. Marked osteopenia. Probable mild RIGHT hallux valgus. Narrative 11/09/2014 1:31 PM EDT EXAMINATION: TWO VIEW ONLY BOTH FEET CLINICAL HISTORY: 1v bilat feet - lateral only, bilat feet TECHNIQUE: Bilateral lateral views of the foot and an oblique view of the RIGHT foot COMPARISON: None FINDINGS: Both feet are apparently fixed in dorsiflexion with apparent marked pes planus, although nonweightbearing images. There appears a mild hallux valgus on the RIGHT. Diffuse bony demineralization suggesting disuse. Procedure Note Anurag Rod MD - 11/09/2014 EXAMINATION: TWO VIEW ONLY BOTH FEET CLINICAL HISTORY: 1v bilat feet - lateral only, bilat feet TECHNIQUE: Bilateral lateral views of the foot and an oblique view of theRIGHT foot COMPARISON: None FINDINGS: Both feet are apparently fixed in dorsiflexion with apparentmarked pes planus, although nonweightbearing images. There appears a mild halluxvalgus on the RIGHT. Diffuse bony demineralization suggesting disuse. IMPRESSION IMPRESSION: Bilateral dorsiflexion deformities of both feet with probable pes planus.Marked osteopenia. Probable mild RIGHT hallux valgus. Mesha Cabral MD IMG DX ORDERABLES documented in this encounter Visit Diagnoses Diagnosis Acquired dysplasia of hip, unspecified laterality Traumatic brain injury, sequela Spasticity Abnormal involuntary movements Scoliosis Scoliosis (and kyphoscoliosis), idiopathic Right leg pain Pain in limb documented in this encounter Care Teams Embroidery Cutter Relationship Specialty Start Date End Date Naina Lindsey MD [address] [place] [address] PCP - General 03/19/10 08/25/16 documented as of this encounter
--- OUTSIDE RECORDS SUMMARY | 2023-11-09 18:16 | XMS_ITS | Encounter Summary ---
Author Organization [facility] [place] [address] Care Team Providers Care Child Care Director Name Role Phone Naina Lindsey MD Primary Care Provider Reason for Visit * Reason Onset Date Comments Bumped Appointment 09/29/2014 Encounter Details Date Type Department Care Team (Late st Contact Info) Description 09/29/2014 Telephone [place] [phone] Mesha Cabral MD [facility] [place] [address] Bumped Appointment Social History Tobacco Use Types Packs/Day [...] encounter Miscellaneous Notes * Telephone Encounter - Emelyn Perez - 10/26/2014 2:21 PM EDT Patient rescheduled. * Telephone Encounter - Emelyn Perez R - 10/25/2014 8:45 AM EDT Message at home number to call to reschedule 11/[address] Cabral. May reschedule to a Thursday or clinic, double book over a follow-up patient. * Telephone Encounter - Maria Fernanda Chanel - 09/29/2014 10:05 AM EDT LM for Anderson with appt information for Tana. I have set her up for the next available appt with Dr. Cabral for a 60 minute appt, with xrays prior (per September) for an evaluation for a scoli brace. Requested a call back if this date and time are inconvenient. documented in this encounter Plan of Treatment Upcoming Encounters Date Type Department Care Team (Late st Contact Info) Description 11/19/2023 2:30 PM EDT TH Visit (TeleHealth) [place] [address] Lilli Joy APRN [facility] [place] [address] 11/30/2023 12:50 PM EDT [place] [address] 12/03/2023 12:30 PM EDT Office [place] [address] Hollie Ambriz MD [facility] [place] [address] documented as of this encounter Visit Diagnoses Not on filedocumented in this encounter Care Teams Child Care Director Relationship Specialty Start Date End Date Naina Lindsey MD [address] [place] [address] PCP - General 03/19/10 08/25/16 documented as of this encounter
--- OUTSIDE RECORDS SUMMARY | 2023-11-09 18:16 | XMS_ITS | Encounter Summary ---
[place] [address] Care Team Providers Care Chip Bin Operator Name Role Phone Emelyn Easley MD Primary Care Provider [phone] Reason for Referral * Diagnostic Test (Routine) - Closed Specialty Diagnoses / Procedures Referred By Contac t Referred To Contact Radiology Diagnoses Traumatic brain injury, without LOC, sequela Acquired dysplasia of hip, unspecified laterality Spasticity Neuromuscular scoliosis of lumbar region Procedures NM Whole Body Bone Scan Vanda Carter [place] [facility] [place] [address] [place] [address] Referral ID Status Reason Start Date Expiration Date V isits Requested Visits Authorized [id number] Closed Specialty Service Requested 11/24/2016 11/24/2017 1 1 Reason for Visit * Diagnostic Test (Routine) - Closed Specialty Diagnoses / Procedures Referred By Contac t Referred To Contact Radiology Diagnoses Traumatic brain injury, without LOC, sequela Acquired dysplasia of hip, unspecified laterality Spasticity Neuromuscular scoliosis of lumbar region Procedures NM Whole Body Bone Scan Vanda Carter [place] [facility] [place] [address] [facility] [place] [address] Referral ID Status Reason Start Date Expiration Date V isits Requested Visits Authorized [id number] Closed Specialty Service Requested 11/24/2016 11/24/2017 1 1 Encounter Details Date Type Department Care Team (Latest Contact Info) Description 12/10/2016 10:57 AM EDT - 12/10/2016 1:59 PM EDT Hospital En[place] [address] Josse Mckee MD [facility] [place] [address] Traumatic brain injury, without LOC, sequela; Acquired dysplasia of hip, unspecified laterality; Spasticity; Neuromuscular scoliosis of lumbar region Discharge Disposition: Home Social History Tobacco Use [...] Visit (TeleHealth) [place] [address] Lilli Joy APRN [facility] [place] [address] 11/30/2023 12:50 PM EDT [place] [address] 12/03/2023 12:30 PM EDT Office [place] [phone] Hollie Ambriz MD [facility] INFECTIOUS DISEASE [place], [place] [id number] documented as of this encounter Procedures Procedure Name Priority Date/Time Associated Diagnosis Comments NM BONE SCAN WHOLE BODY Routine 12/10/2016 3:33 PM EDT Traumatic brain injury, without LOC, sequela Acquired dysplasia of hip, unspecified laterality Spasticity Neuromuscular scoliosis of lumbar region documented in this encounter Results * NM Whole Body Bone Scan (12/10/2016 3:33 PM EDT) Anatomical Region Laterality Modality Nuclear Medicine Impressions 12/10/2016 4:00 PM EDT This examination is greatly limited. There is no abnormal activity within the spine. The pelvis cannot be evaluated. 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 TECHNIQUE: Three hours following the intravenous administration of 23 mCi of technetium-99m MDP, images of the entire skeleton were obtained. Comparison: None FINDINGS: This examination is greatly limited. This patient was not capable of holding still for the examination. Positioning was difficult. The left leg is not completely visualized. Urine contamination limits visualization. There is a scoliosis of the lumbar spine. No abnormal activity is identified in the spine or upper extremities. The pelvis is not adequately visualized. The right renal collecting system and ureter are dilated. 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 TECHNIQUE: Three hours following the intravenous administration of 23 mCiof technetium-99m MDP, images of the entire skeleton were obtained. Comparison: None FINDINGS: This examination is greatly limited. This patient was not capable ofholding still for the examination. Positioning was difficult. The left leg isnot completely visualized. Urine contamination limits visualization. There is a scoliosis of the lumbar spine. No abnormal activity isidentified in the spine or upper extremities. The pelvis is not adequately visualized. The right renal collecting system and ureter are dilated. IMPRESSION This examination is greatly limited. There is no abnormal activity within the spine. The pelvis cannot be evaluated. Josse Mckee MD G NM ORDERABLES documented in this encounter Visit Diagnoses Diagnosis Traumatic brain injury, without LOC, sequela Acquired dysplasia of hip, unspecified laterality Spasticity Abnormal involuntary movements Neuromuscular scoliosis of lumbar region Other kyphoscoliosis and scoliosis documented in this encounter Administered Medications Inactive Administered Medications - up to 3 most recent administrations Medication Order MAR Action Action Date Dose Rate Site technetium (Tc-99m) methylene diphosphonate (MDP) injection 23.4 mCi 23.4 mCi, Intravenous, ONCE PRN, 1 dose, Starting on Thu12/10/16 at 1245, Until Thu12/10/16 at 1245, Per Protocol, Routine Given 12/10/2016 12:45 PM EDT 23.4 mCi documented in this encounter Care Teams Chip Bin Operator Relationship Specialty Start Date End Date Emelyn Easley MD [address] [place] [address] PCP - General Family Medicine 08/26/16 05/26/18 documented as of this encounter
--- OUTSIDE RECORDS SUMMARY | 2023-11-09 18:16 | XMS_ITS | Encounter Summary ---
Author Organization [facility] Address [facility] [address] Care Team Providers Care Trim Setter Helper Name Role Phone Emelyn Easley MD Primary Care Provider [phone] Reason for Referral * Physical Therapy (Routine) - Closed Specialty Diagnoses / Procedures Referred By Contac t Referred To Contact Diagnoses Traumatic brain injury, without LOC, sequela Acquired dysplasia of hip, unspecified laterality Spasticity Neuromuscular scoliosis of lumbar region Vanda Carter PA [facility] [place] [address] Unknown None Referral ID Status Reason Start Date Expiration Date V isits Requested Visits Authorized [id number] Closed Evaluate and Treat 11/24/2016 05/23/2017 12 12 * Diagnostic Test (Routine) - Closed Specialty Diagnoses / Procedures Referred By Contac t Referred To Contact Radiology Diagnoses Traumatic brain injury, without LOC, sequela Acquired dysplasia of hip, unspecified laterality Spasticity Neuromuscular scoliosis of lumbar region Procedures NM Whole Body Bone Scan Vanda Carter PA [facility] [place] [address] [place] [address] Referral ID Status Reason Start Date Expiration Date V isits Requested Visits Authorized [id number] Closed Specialty Service Requested 11/24/2016 11/24/2017 1 1 Reason for Visit * Consultation (Routine) - Closed Specialty Diagnoses / Procedures Referred By Contac t Referred To Contact Orthopaedics Diagnoses leg pain,chronic, right Emelyn Easley MD [address] [place] [address] [facility] [address] [place] [phone] Referral ID Status Reason Start Date Expiration Date V isits Requested Visits Authorized [id number] Closed Consult, Test & Treat [facility] 08/26/2016 08/26/2017 1 1 Encounter Details Date Type Department Care Team (Late st Contact Info) Description 11/24/2016 1:00 PM EDT Office [place] [address] Josse Mckee MD [facility] [place] [address] Traumatic brain injury, without LOC, sequela; Acquired dysplasia of hip, unspecified laterality; Spasticity; Neuromuscular scoliosis of lumbar region Social History Tobacco Use Types Packs/Day Years [...] - Inhaled Oxygen Concentration - - Weight 52.2 kg (115 lb) 11/24/2016 1:33 PM EDT Height 157.5 cm (5' 2) 11/24/2016 1:33 PM EDT Body Mass Index 21.03 11/24/2016 1:33 PM EDT documented in this encounter Progress Notes * Vanda Carter PA - 11/24/2016 1:00 PM EDT PATIENT NAME: Tana Cavazos AGE: 21 y.o.. MR#: [id number] ? DATE OF VISIT: 11/24/2016 ? STAFF: Today's covering physician is Dr. [...] with continued pain. She currently wears a [place] brace for her residual curve. She is non-ambulatory and recently got a new wheelchair which is helpful. She does seem to be having pain, per her mother and caregiver, mostly on the right hip, and possibly in her spine, but it is hard to determine what causes her the most pain. She can sit in the chair for a couple of hours at a time. She did have surgeries on the right wrist and arm with . She also had her Baclofen pump removed here in 2014 and suffered a distal femur fracture during that surgery, and ended up with a post-operative infection. Since then she has been taking oral Baclofen, managed by her PCP, and is taking 15 mg per day. ROS: Negative for fever, chills, SOB, chest pain, nausea, vomiting, and diarrhea. ? Patient's medications, allergies, past medical, surgical, social and family histories were reviewedand updated as appropriate. ?? Physical Exam Constitutional: oriented to person, place, and time and well-developed, well- nourished, and in no distress. Skin: Skin is warm and dry. ? Minimal arc of hip motion on the right. About 20 degrees of abduction. Slightly more hip motion on the right with about 45 degrees of flexion and 45 degrees of abduction. Calcaneovalgus feet bilaterally. Thumb and palm deformity on right hand. ? RADIOLOGICAL STUDIES: I reviewed XR's taken today of the spine which show previous spinal fusion. Ireviewed X-rays taken today of the hips today which show previous femoral head resection. ? ASSESSMENT/PLAN: Tana Cavazos is a 21 y.o. female with spastic quadriplegic CP who presents today for follow up of her hips and spine. At this point she has undergone multiple failed surgeries and is still having pain, so we would not recommend another surgery right now. We will start by getting a bone scan to seeif we can determine what the main generator of her pain is. We will also increase her Baclofen doseto 10 mg BID, taking a total of 20 mg per day. She should follow up with a different provider to continue managing this dose, but we prescribed 3 months of that today. Depending on the bone scan results, injections of botox/phenol or even steroid into the hips may be a good option. They will followup in [address] Mckee will discuss bone scan results with them. I provided a referral for PTtoday as well. documented in this encounter Plan of Treatment Upcoming Encounters Date Type Department Care Team (Late st Contact Info) Description 11/19/2023 2:30 PM EDT TH Visit (TeleHealth) [place] [phone] Lilli Joy APRN [facility] [place] [address] 11/30/2023 12:50 PM EDT [place] [phone] 12/03/2023 12:30 PM EDT Office [place] [phone] Hollie Ambriz MD [facility] [place] [address] Scheduled Referrals Name Type Priority Associated Diagnoses Orde r Schedule Referral to Physical Therapy Outpatient Referral Routine Traumatic Brain Injury, Without Loc, Sequela Acquired dysplasia of hip, unspecified laterality Spasticity Neuromuscular scoliosis of lumbar region Ordered: 11/24/2016 documented as of this encounter Results * NM Whole Body [...] scoliosis Traumatic brain injury, without LOC, sequela Acquired dysplasia of hip, unspecified laterality Spasticity Abnormal involuntary movements Neuromuscular scoliosis of lumbar region Other kyphoscoliosis and scoliosis documented in this encounter Care Teams Trim Setter Helper Relationship Specialty Start Date End Date Emelyn Easley MD [address] [place] [address] PCP - General Family Medicine 08/26/16 05/26/18 documented as of this encounter
--- OUTSIDE RECORDS SUMMARY | 2023-11-09 18:16 | XMS_ITS | Encounter Summary ---
Author Organization [facility] Address [facility] [place] [address] Care Team Providers Care Marketing Operations Manager Name Role Phone Naina Lindsey MD Primary Care Provider [phone] Encounter Details Date Type Department Care Team (Late st Contact Info) Description 11/09/2014 9:31 AM EDT - 11/09/2014 11:00 AM EDT Hospital Encounter XRay at [address] [place] [address] Scoliosis Social History Tobacco Use Types Packs/Day [...] EDT TH Visit (TeleHealth) [place] [address] Lilli Joy APRN [facility] [place] [address] 11/30/2023 12:50 PM EDT [place]oint[place] [phone] 12/03/2023 12:30 PM EDT Office [place] [phone] Hollie Ambriz MD [facility] [place] [address] documented as of this encounter Procedures Procedure Name Priority Date/Time Associated Diagnosis Comments XR SCOLIOSIS OR TOTAL SPINE 2 VIEW Routine 11/09/2014 10:08 AM EDT Scoliosis documented in this encounter Results * XR scoliosis 2 view (11/09/2014 10:08 AM EDT) Anatomical Region Laterality Modality C-spine, T-spine, L-spine N/A Radiog raphic Imaging 11/09/2014 10:0 8 AM EDT Impressions 11/09/2014 10:20 AM EDT IMPRESSION: Stable appearance of the posterior spinal fusion since prior study of 06/12/2010. Narrative 11/09/2014 10:20 AM EDT EXAMINATION: SCOLIOSIS 2 VIEW CLINICAL HISTORY: scoliosis TECHNIQUE: Supine AP and right side down lateral views of the spine. COMPARISON: 06/12/2010 FINDINGS: The patient is status post instrumented posterior spinal fusion from the cervicothoracic junction to the sacrum. There has been no change in appearance since prior study. There is no evidence of hardware complication. Note is made of a chronically dislocated, dysplastic left hip with fragmentation of the femoral head. The rectum is very distended and stool-filled consistent with chronic constipation. The visualized portions of both humeri are quite gracile consistent with very little use. Procedure Note Barron Larkin MD - 11/09/2014 EXAMINATION: SCOLIOSIS 2 VIEW CLINICAL HISTORY: scoliosis TECHNIQUE: Supine AP and right side down lateral views of the spine. COMPARISON: 06/12/2010 FINDINGS: The patient is status post instrumented posterior spinal fusion from the cervicothoracic junction to the sacrum. There has been no change inappearance since prior study. There is no evidence of hardware complication. Note is made of a chronically dislocated, dysplastic left hip withfragmentation of the femoral head. The rectum is very distended and stool-filledconsistent with chronic constipation. The visualized portions of both humeri arequite gracile consistent with very little use. IMPRESSION IMPRESSION: Stable appearance of the posterior spinal fusion since prior study of06/12/2010. Mesha Cabral MD IMG DX ORDERABLES documented in this encounter Visit Diagnoses Diagnosis Scoliosis Scoliosis (and kyphoscoliosis), idiopathic documented in this encounter Care Teams Marketing Operations Manager Relationship Specialty Start Date End Date Naina Lindsey MD [address] [place] [address] [place] [address] PCP - General 03/19/10 08/25/16 documented as of this encounter
--- OUTSIDE RECORDS SUMMARY | 2023-11-09 18:16 | XMS_ITS | Encounter Summary ---
Author Organization [facility] [place] [address] Care Team Providers Care Emissions Testing And Repair Technician Name Role Phone Naina Lindsey MD Primary Care Provider [phone] Reason for Visit * Reason Comments Follow-up HCK / REMOVE DEE Hayes Encounter Details Date Type Department Care Team (Latest Contact Info) Description 06/08/2014 4:30 PM EST Office [place] [address] Alek Sinha, SKILLS INSTRUCTOR [facility] [place] [address] Spasticity; Postoperative wound infection, subsequent encounter Discharge Disposition: Home Social History Tobacco Use [...] Pressure - - Pulse - - Temperature 37.1 ??C (98.7 ??F) 06/08/2014 5:03 PM ES T Respiratory Rate - - Oxygen Saturation - - Inhaled Oxygen Concentration - - Weight - - Height - - Body Mass Index - - documented in this encounter Progress Notes * Alek Sinha, SKILLS INSTRUCTOR - 06/23/2014 3:02 PM EST Florin Cavazos was seen today in the pediatric neurosurgery clinic for a post-op follow up visit. Tana is a 18 year old girl with a history of increased tone which was managed with intrathecal baclofen. She underwent placement of an intrathecal baclofen pump in 2007 at the [facility]. Mother feels that the pump has not been helpful in treating Tana's tone. She has been followed Jenny Dotson who has weaned Tana off of her baclofen. For this we have been asked to explant her pump which she underwent on 05/11/2014 and was discharged on 05/12/2014. She returned to the ED on 05/20/2014 with complaint of fluid leaking from her incision and fever. She did not have any other sx at that time. For this she was admitted and taken to the OR for a wash out which she underwent on 05/21/2014: deep soft tissue abscess, repair of dural/ csf leak with out laminectomy Tana was admitted as above and taken to the OR on 05/21. She was taken back to the PICU for post-opcare and started on triple antibiotics. Gal wound cultures were positive for pseudomonas and her antibiotic therapy was narrowed to ceftazidime. On post-op day 5 she was again noted to have purulentdrainage coming form the wound and was taken back to the OR for a second washout. Vancomycin was restarted and a PICC line was place. Wound culture form the second washout grew coag negative Staph. Her antibiotics were narrowed to just oral Levaquin and she was later discharged home. Since discharge mother reports that Tana is now back to her neurological baseline and that her wounds are healing well. Temp(Src) 37.1 ??C (98.7 ??F) (Axillary) On exam Tana is her usual please self. She is lying on the exam table and is being comforted by her brother who are very caring of Tana. Tana is generally well appearing. Her incisions are clean with no drainage, no erythema, and no swelling of any kind. The wound margins have slightly over grown the sutures. All suture material was removed from the wounds today with out difficulty. Tana tolerated her suture removal very well. A/P: 19 year old girl with spasticity s/p explant of baclofen pump which was complicated by wound infection which required clean out x 2 and antibiotics. She returns today for a post-op follow up with a generally well exam and nicely healed incisions. Follow up as needed. Mother will call if she has any concerns. documented in this encounter Plan of Treatment Upcoming Encounters Date Type Department Care Team (Late st Contact Info) Description 11/19/2023 2:30 PM EDT TH Visit (TeleHealth) [place] [address] Lilli Joy APRN [facility] [place] [address] 11/30/2023 12:50 PM ED[place] [address] 12/03/2023 12:30 PM EDT Office [place] [address] Hollie Ambriz MD [facility] [place] [address] documented as of this encounter Visit Diagnoses Diagnosis Spasticity Abnormal involuntary movements Postoperative wound infection, subsequent encounter documented in this encounter Care Teams Emissions Testing And Repair Technician Relationship Specialty Start Date End Date Nain[place] [address] PCP - General 03/19/10 08/25/16 documented as of this encounter
--- OUTSIDE RECORDS SUMMARY | 2023-11-09 18:16 | XMS_ITS | Encounter Summary ---
[place] [address] Care Team Providers Care Bicycle Subassembler Name Role Phone Emelyn Easley MD Primary Care Provider [phone] Reason for Visit * Reason Onset Date Comments Other 12/19/2016 Encounter Details Date Type Department Care Team (Late st Contact Info) Description 12/19/2016 Telephone [place] [address] Josse Mckee MD [facility] [place] [address] Other Social History Tobacco Use Types Packs/Day Years [...] encounter Miscellaneous Notes * Telephone Encounter - Amy Gonzales - 12/19/2016 4:22 PM EDT Error documented in this encounter Plan of Treatment Upcoming Encounters Date Type Department Care Team (Late st Contact Info) Description 11/19/2023 2:30 PM EDT TH Visit (TeleHealth) [place] [phone] Lilli Joy APRN [facility] [place] [address] 11/30/2023 12:50 PM EDT [place]ointment [place] [address] 12/03/2023 12:30 PM EDT Office [place] [phone] Hollie Ambriz MD [facility] [place] [address] documented as of this encounter Visit Diagnoses Not on filedocumented in this encounter Care Teams Bicycle Subassembler Relationship Specialty Start Date End Date Emelyn Easley MD [address] [place] [address] PCP - General Family Medicine 08/26/16 05/26/18 documented as of this encounter
--- OUTSIDE RECORDS SUMMARY | 2023-11-09 18:16 | XMS_ITS | Encounter Summary ---
[facility] Address [facility] [place] [address] Care Team Providers Care Electronics Detail Draftsperson Name Role Phone Emelyn Easley MD Primary Care Provider [phone] Encounter Details Date Type Department Care Team (Latest Contact Info) Description 11/24/2016 12:04 PM EDT - 11/24/2016 11:59 PM EDT Hospital Encounter XRay at [address] [place] [address] Josse Mckee MD [facility] [place] [address] Acquired dysplasia of hip, unspecified laterality Discharge [...] EDT TH Visit (TeleHealth) [place] [address] Lilli Joy APRN [facility] [place] [address] 11/30/2023 12:50 PM EDT Appointment [place] [address] 12/03/2023 12:30 PM EDT Office Visit [place] [address] Hollie Ambriz MD [facility] [place] [address] documented as of this encounter Procedures Procedure Name Priority Date/Time Associated Diagnosis Comments XR PELVIS AND FROG LATERAL BILAT Routine 11/24/2016 1:23 PM EDT Acquired dysplasia of hip, unspecified laterality documented in this encounter Results * XR Pelvis & Frog Lat Bilat (Pedi Only) (11/24/2016 1:23 PM EDT) Anatomical Region Laterality Modality Pelvis, Hip N/A Digital Radiogra phy Impressions 11/24/2016 1:53 PM EDT Postsurgical changes consistent with earlier proximal femoral resection. No acute injury. Narrative 11/24/2016 1:53 PM EDT EXAMINATION: XR PELVIS AND FROG LAT BILAT (PEDI ONLY) CLINICAL HISTORY: hip dysplasia TECHNIQUE: AP and frog-leg views of the pelvis COMPARISON: 09/24/2010 and 05/09/2008. FINDINGS: As seen on previous studies proximal femoral resection is been performed bilaterally. There is proliferative bone at the margins of the proximal femur and the pseudoacetabulum bilaterally. Both hips are held in a flexed position on both studies. Posterior pedicle screw and meredith fixation extends from the lumbar spine to the pelvis. A pronounced scoliosis is present and there is a additional fixation screw at the right sacroiliac joint. Bones are demineralized and hypoplastic. No acute fractures identified. Procedure Note Zander Sherwood MD - 11/24/2016 EXAMINATION: XR PELVIS AND FROG LAT BILAT (PEDI ONLY) CLINICAL HISTORY: hip dysplasia TECHNIQUE: AP and frog-leg views of the pelvis COMPARISON: 09/24/2010 and 05/09/2008. FINDINGS: As seen on previous studies proximal femoral resection is been performed bilaterally. There is proliferative bone at the margins of the proximalfemur and the pseudoacetabulum bilaterally. Both hips are held in a flexed position on both studies. Posterior pedicle screw and meredith fixation extends from the lumbar spine tothe pelvis. A pronounced scoliosis is present and there is a additionalfixation screw at the right sacroiliac joint. Bones are demineralized and hypoplastic. No acute fractures identified. IMPRESSION Postsurgical changes consistent with earlier proximal femoral resection. No acute injury. Josse Mckee MD IMG DX ORDERABLES documented in this encounter Visit Diagnoses Diagnosis Acquired dysplasia of hip, unspecified laterality documented in this encounter Care Teams Electronics Detail Draftsperson Relationship Specialty Start Date End Date Emelyn Easley MD [address] [place] [id number] PCP - General Family Medicine 08/26/16 05/26/18 documented as of this encounter
--- OUTSIDE RECORDS SUMMARY | 2023-11-09 18:16 | XMS_ITS | Encounter Summary ---
Author Organization [facility] Address [facility] [place] [address] Care Team Providers Care Garage Door Installer Name Role Phone Naina Lindsey MD Primary Care Provider [phone] Reason for Visit * Reason Onset Date Comments Appointment 08/02/2015 Encounter Details Date Type Department Care Team (Late st Contact Info) Description 08/02/2015 Telephone [place] [phone] Mesha Cabral MD [facility] [place] [address] Appointment Social History Tobacco Use Types Packs/Day [...] * Telephone Encounter - Kristen Best - 08/13/2015 3:16 PM EDT Unable to contact, letter sent * Telephone Encounter - Lucrecia Sandhu - 08/09/2015 11:35 AM EDT Lm#2 to find out if patient wanted to schedule a follow up with an UE provider. ? Surgical options or follow up as needed? * Telephone Encounter - Kristen Best - 08/02/2015 10:50 AM EDT Lm#1 to find out if patient wanted to schedule a follow up with an UE provider. ? Surgical options or follow up as needed? documented in this encounter Plan of Treatment Upcoming Encounters Date Type Department Care Team (Late st Contact Info) Description 11/19/2023 2:30 PM EDT TH Visit (TeleHealth) [place] [address] Lilli Joy APRN [facility] [place] [address] 11/30/2023 12:50 PM EDT [place]oint[place] [address] 12/03/2023 12:30 PM EDT Office [place] [address] Hollie Ambriz MD [facility] [place] [address] documented as of this encounter Visit Diagnoses Not on filedocumented in this encounter Care Teams Garage Door Installer Relationship Specialty Start Date End Date Naina Lindsey MD [address] [place] [address] [place] [address] PCP - General 03/19/10 08/25/16 documented as of this encounter
--- OUTSIDE RECORDS SUMMARY | 2023-11-09 18:16 | XMS_ITS | Encounter Summary ---
Author Organization [facility] [place] [address] Care Team Providers Care Clinical Technician Name Role Phone Emelyn Easley MD Primary Care Provider [phone] Reason for Referral * Diagnostic Test (Routine) - Closed Specialty Diagnoses / Procedures Referred By Contac t Referred To Contact Radiology Diagnoses Traumatic brain injury, without LOC, sequela Acquired dysplasia of hip, unspecified laterality Procedures NM Whole Body Bone Scan Vanda Carter [place] [facility] [place] [address] [place] [address] Referral ID Status Reason Start Date Expiration Date V isits Requested Visits Authorized [id number] Closed Specialty Service Requested 12/16/2016 12/16/2017 2 2 Encounter Details Date Type Department Care Team (Late st Contact Info) Description 12/16/2016 Orders [place] [address] Vanda Carter [place] [facility] [place] [address] Traumatic brain injury, without LOC, sequela; Acquired dysplasia of hip, unspecified laterality Social [...] EDT TH Visit (TeleHealth) [place] [address] Lilli Joy APRN [facility] [place] [address] 11/30/2023 12:50 PM EDT Appointment [place] [address] 12/03/2023 12:30 PM EDT Office Visit [place] [address] Hollie Ambriz MD [facility] [place] [address] documented as of this encounter Results * [...] sequela Acquired dysplasia of hip, unspecified laterality Traumatic brain injury, without LOC, sequela Acquired dysplasia of hip, unspecified laterality documented in this encounter Care Teams Clinical Technician Relationship Specialty Start Date End Date Emelyn Easley MD [address] [place] [address] PCP - General Family Medicine 08/26/16 05/26/18 documented as of this encounter
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
--- OUTSIDE RECORDS SUMMARY | 2023-11-09 18:16 | XMS_ITS | Encounter Summary ---
Author Organization [facility] [place] [address] Care Team Providers Care Whipped Topping Supervisor Name Role Phone Emelyn Easley MD Primary Care Provider [phone] Reason for Visit * Auth/Cert Specialty Diagnoses / Procedures Referred By Contac t Referred To Contact Diagnoses TBI, W/O LOC, SEQUEIA/ACQUIRED DYSPLASIA OF HIP Procedures PRO ANESTH, CAT/MRI SCAN, RADIATN THERAPY BONE SCAN Referral ID Status Reason Start Date Expiration Date Visits Re quested Visits Authorized [id number] 1 1 Encounter Details Date Type Department Care Team (Latest Contact Info) Description 12/30/2016 10:57 AM EDT - 12/30/2016 4:52 PM EDT Hospital Encounter Same Day Program at [facility] [place] [address] Janna Strickland MD [facility] [place] [address] Discharge Disposition: Home Social History Tobacco Use [...] 11:40; without success they called for another optoelectronics engineer. I paged at 12:17; person answering says [...] EDT TH Visit (TeleHealth) Infectious Disease at [facility] [place] [address] Lilli Joy APRN [facility] [place] [address] 11/30/2023 12:50 PM EDT Appointment [place] [address] 12/03/2023 12:30 PM EDT Office Visit [place] [address] Hollie Ambriz MD [facility] [place] [address] documented as of this encounter Procedures Procedure Name Priority Date/Time Associated Diagnosis Comments BONE SCAN 12/30/2016 11:00 PM EDT TBI, W/O LOC, SEQUEIA/ACQUIRED DYSPLASIA OF HIP documented in this encounter Visit Diagnoses Not on filedocumented in this encounter Care Teams Whipped Topping Supervisor Relationship Specialty Start Date End Date Emelyn Easley MD [address] [place] [address] PCP - General Family Medicine 08/26/16 05/26/18 documented as of this encounter
--- OUTSIDE RECORDS SUMMARY | 2023-11-09 18:16 | XMS_ITS | Encounter Summary ---
Author Organization [facility] Address [facility] [place] [address] Care Team Providers Care Textile Finisher Name Role Phone Emelyn Easley MD Primary Care Provider [phone] Encounter Details Date Type Department Care Team (Latest Contact Info) Description 11/24/2016 12:03 PM EDT Hospital Encounter XRay at [address] [place] [address] Josse Mckee MD [facility] [place] [address] Neuromuscular scoliosis of lumbar region Discharge Disposition: [...] Sig Dispensed Refills Start Date End Date levonorgestrel-ethinyl estradiol (INTROVALE) 0.15-30 mg-mcg per tablet Take 1 tablet by mouth daily. 03/18/2019 POLYETHYLENE GLYCOL 3350 (MIRALAX ORAL) Take 17 g by mouth as needed. 11/20/2010 07/09/2022 documented as of this encounter Plan of Treatment Upcoming Encounters Date Type Department Care Team (Late st Contact Info) Description 11/19/2023 2:30 PM EDT TH Visit (TeleHealth) [place] [address] Lilli Joy APRN [facility] [place] [address] 11/30/2023 12:50 PM EDT [place] [address] 12/03/2023 12:30 PM EDT Office [place] [address] Hollie Ambriz MD [facility] [place] [address] documented as of this encounter Procedures Procedure Name Priority Date/Time Associated Diagnosis Comments XR SCOLIOSIS OR TOTAL SPINE 2 VIEW Routine 11/24/2016 1:23 PM EDT Neuromuscular scoliosis of lumbar region documented in this encounter Results * XR Scoliosis or Total Spine 2 view (11/24/2016 1:23 PM EDT) Anatomical Region Laterality Modality C-spine, T-spine, L-spine N/A Digita l Radiography Impressions 11/24/2016 2:12 PM EDT Severe see shaped scoliosis and subsequent posterior instrumentation. Disengaged present at the inferior most pedicle screw on the right is unchanged compared to the patient's earlier study. Narrative 11/24/2016 2:12 PM EDT EXAMINATION: XR SCOLIOSIS OR TOTAL SPINE 2 VIEW CLINICAL HISTORY: scoliosis TECHNIQUE: AP and lateral views of the spine COMPARISON: 11/09/2014 FINDINGS: As seen on the previous study there is a severe dextroscoliosis of the spine centered at the upper lumbar spine. Patient is present. Significant fused and stabilized with a large posterior construct extending from the cervicothoracic junction to the pelvis. As seen on the previous study the inferior most screw on the right has disengaged from the adjacent parotid. No other acute injury is seen. Procedure Note Zander Sherwood MD - 11/24/2016 EXAMINATION: XR SCOLIOSIS OR TOTAL SPINE 2 VIEW CLINICAL HISTORY: scoliosis TECHNIQUE: AP and lateral views of the spine COMPARISON: 11/09/2014 FINDINGS: As seen on the previous study there is a severe dextroscoliosis of thespine centered at the upper lumbar spine. Patient is present. Significant fusedand stabilized with a large posterior construct extending from thecervicothoracic junction to the pelvis. As seen on the previous study the inferior most screw on the right has disengaged from the adjacent parotid. No other acute injury is seen. IMPRESSION Severe see shaped scoliosis and subsequent posterior instrumentation.Disengaged present at the inferior most pedicle screw on the right is unchangedcompared to the patient's earlier study. Josse Mckee MD IMG DX ORDERABLES documented in this encounter Visit Diagnoses Diagnosis Neuromuscular scoliosis of lumbar region Other kyphoscoliosis and scoliosis documented in this encounter Care Teams Textile Finisher Relationship Specialty Start Date End Date Emelyn Easley MD [address] [place] [address] PCP - General Family Medicine 08/26/16 05/26/18 documented as of this encounter
--- OUTSIDE RECORDS SUMMARY | 2023-11-09 18:16 | XMS_ITS | Encounter Summary ---
Author Organization [facility] Address [facility] [place] [address] Care Team Providers Care Supervisor Roving Department Name Role Phone Naina Lindsey MD Primary Care Provider [phone] Reason for Referral * Consultation (Routine) - Closed Specialty Diagnoses / Procedures Referred By Contac t Referred To Contact Neurology Diagnoses Traumatic brain injury, without loss of consciousness, sequela Spasticity Contracture of elbow, left Mesha Cabral MD [facility] [place] [address] Myah Abdi, [facility] [place] [address] Referral ID Status Reason Start Date Expiration Date V isits Requested Visits Authorized [id number] Closed Consult, Test & Treat 07/31/2015 07/30/2016 1 1 * Consultation (Routine) - Closed Specialty Diagnoses / Procedures Referred By Contac t Referred To Contact Diagnoses Traumatic brain injury, without loss of consciousness, sequela Spasticity Contracture of elbow, left Mesha Cabral MD [facility] [place] [address] Unknown None Referral ID Status Reason Start Date Expiration Date V isits Requested Visits Authorized [id number] Closed Consult, Test & Treat 07/31/2015 01/27/2016 1 1 Reason for Visit * Reason Comments Right Leg Pain Delayed Development Childhood Encounter Details Date Type Department Care Team (Late st Contact Info) Description 07/31/2015 11:00 AM EDT [place] [address] Mesha Cabral MD [facility] [place] [address] Neuromuscular scoliosis of lumbar region; Traumatic brain injury, without loss of consciousness, sequela; Acquired dysplasia of hip, unspecified laterality; Closed fracture of distal end of right femur with routine healing, unspecified fracture morphology, subsequent encounter; Spasticity; Contracture of elbow, left Social History Tobacco Use Types Packs/Day Years [...] - Inhaled Oxygen Concentration - - Weight 47.6 kg (105 lb) 07/31/2015 10:51 AM EDT Height 160 cm (5' 3) 07/31/2015 10:51 AM EDT Body Mass Index 18.6 07/31/2015 10:51 AM EDT documented in this encounter Progress Notes * Mesha Cabral MD - 07/31/2015 1:18 PM EDT This is a followup for this established patient of [facility]. She is 20 years old and has an underlying diagnosis of spastic quadriplegic cerebral palsy. She is accompanied by her mother and group program manager. 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 Therapists wonder if it might be helpful to consider surgical intervention and/or splinting. Mother also notices that Tana may be having some right leg pain near where her distal femur fracture had been. This is really intermittent when she complains of pain and mostly when the leg is being moved or manipulated. She seems to be comfortable once she is situated and seated. I reviewed this patient's problem list, past medical history, medication list, and allergies in the electronic chart and made no changes. REVIEW OF SYSTEMS: No recent illnesses. No fever. No skin integrity problems. All other systems reviewed are negative. PHYSICAL EXAMINATION: Tana is her usual pleasant interactive self. She gets a little anxious when I begin the exam. She has some mild, yet flexible, torticollis. She has residual apex right lumbar scoliosis, but otherwise well-healed incisional line and no areas of tenderness to palpation throughout her back. Her TLSO brace is well fitting. She had some redness of where the brace presses on her ribs, bilaterally, but no break in the skin. She has a deep waist crease on the left side that is being treated with powder and gauze to keep it dry, and the skin does look healthy and mildly red but no moist. Her spine is very stiff, and her pelvis is oblique and also stiff. Both legs have significant hip flexion contractures. Hips tend to stay flexed, abducted, and externally rotated. Tana does have some pain with manipulation of her right leg, and it is unclear whether this is emanating from her hip or knee. She has bilateral significant knee flexion contracture. She does not have any swelling or point tenderness to palpation over the right distal femoral fracture area. She has clinically-obvious deformity, apex posterior angulation of that leg still. Her ankles are in a calcaneus position with no progression but no evidence of skin issues for her feet. X-RAY: Two views of right femur show completely healed distal femoral fracture with apex posterior angulation. We can see on the femur x-ray and on the spine x-ray that both proximal femoral resections have had some heterotopic ossification; and on the right hip area, there is some bony sclerosis between the femur and the acetabulum suggesting some ongoing irritation. Spine radiograph reveals no change in alignment of the scoliotic curve, and posterior fusion instrumentation is unchanged with dissociation of the right pelvis screw fixation to the meredith. I see no further disengagement or breakage of implant, as compared to previous x-rays, and no increase in curvature in the intrinsic. I went back and did a better upper extremity exam. Tana indeed has more spasticity on the right side than her left. She has undergone a tendon transfer on the right wrist in the past and has a well-healed dorsal scar. Her wrist can be extended to beyond neutral, but she has some mild intrinsic tightness on the right side. The elbow has some stiffness, as does the shoulder, but no pain with passive range of motion on the left side. Tana has a little more elbow flexion contracture, stiffness, and a little more difficultly with supination and holds her left wrist in flexion most of the time; and with attempted extension, she again has intrinsic tightness of her digits. IMPRESSION AND PLAN: I reassured that clinically and radiographically we see no major changes with Tana's spine alignment. We will continue with TLSO supportive treatment for her right distal femur fracture. It is both clinically and radiographically healed. I wonder if some of her discomfort is coming from her hip, and I would recommend no surgical intervention for this, but we can work with different positioning techniques to help offload that right hip. I made a prescription for a dynamic elbow extension brace to be used on the left side at nighttime, can be each night or every other night. I will also make a referral to our neurologist, Dr. Myah Abdi, who does Botox injections at this facility, to consider bilateral upper extremity Botox injections in the near future. I advised Mother that I will be leaving [facility] at the end of September of this year; and for my adult patients with spasticity, followup is on an as-needed basis with whomever might replace me, and I recommend following up with primary care physician in the meantime. Item/service Requested: L elbow dynamic extension brace, use nightly Reason why item is being requested: Decrease contracture Spasticity management Effect on recipient if requested item is not provided: Impaired mobility Joint contracture Recommended timetable of use for prescribed treatment/requested item: Ongoing Expected outcome of providing requested item: Improved joint motion Recommended timeframe required to achieve outcome: Ongoing Previous treatment plans and outcomes used: Stretching Physical Therapy Medication This item is the least restrictive, least costly product/service available to meet recipients needs. Provider: Mesha Cabral [place] [address] documented in this encounter Plan of Treatment Upcoming Encounters Date Type Department Care Team (Late st Contact Info) Description 11/19/2023 2:30 PM EDT TH Visit (TeleHealth) [place] [address] Lilli Joy APRN [facility] [place] [address] 11/30/2023 12:50 PM EDT [place] [phone] 12/03/2023 12:30 PM EDT Office [place] [address] Hollie Ambriz MD [facility] [place] [address] Scheduled Referrals Name Type Priority Associated Diagnoses Orde r Schedule Referral to Othotist Outpatient Referral Routine Traumatic brain injury, without loss of consciousness, sequela Spasticity Contracture of elbow, left Ordered: 07/31/2015 Referral to Neurology Outpatient Referral Routine Traumatic brain injury, without loss of consciousness, sequela Spasticity Contracture of elbow, left Ordered: 07/31/2015 documented as of this encounter Results * XR Scoliosis 1 View (SR GENERIC) (07/31/2015 12:04 PM EDT) Anatomical Region Laterality Modality C-spine, T-spine, L-spine N/A Digita l Radiography Impressions 07/31/2015 2:19 PM EDT IMPRESSION: 1. ??Pronounced thoracolumbar scoliosis with increased angulation. 2. ??Unchanged posterior fixation hardware. Narrative 07/31/2015 2:19 PM EDT EXAMINATION: XR SCOLIOSIS 1 VIEW CLINICAL HISTORY: Supine out of brace: ??measure scoli TECHNIQUE: 2 views COMPARISON: October 2014 FINDINGS: Cervical to sacral posterior instrumented fusion. All images were done supine. A pronounced rotoscoliosis of the thoracolumbar spine is approximately 89 degrees, formerly 71 degrees with apex at L2-3. Vertebral bodies: Normal in height. No vertebral fracture. Soft tissues:Large amount of formed stool in the rectosigmoid area. Hips: Resected left femoral head or girdle stone procedure. Procedure Note Marci Bee MD - 07/31/2015 EXAMINATION: XR SCOLIOSIS 1 VIEW CLINICAL HISTORY: Supine out of brace: measure scoli TECHNIQUE: 2 views COMPARISON: October 2014 FINDINGS: Cervical to sacral posterior instrumented fusion. All images were donesupine. A pronounced rotoscoliosis of the thoracolumbar spine is approximately 89degrees, formerly 71 degrees with apex at L2-3. Vertebral bodies: Normal in height. No vertebral fracture. Soft tissues:Large amount of formed stool in the rectosigmoid area. Hips: Resected left femoral head or girdle stone procedure. IMPRESSION IMPRESSION: 1. Pronounced thoracolumbar scoliosis with increased angulation. 2. Unchanged posterior fixation hardware. Mesha Cabral MD IMG DX ORDERABLES * XR Femur 2 View Right (GENERIC) (07/31/2015 12:03 PM EDT) Anatomical Region Laterality Modality Thigh Right Digital Radiogra phy Impressions 07/31/2015 12:39 PM EDT IMPRESSION: Progression of remodeling and sclerosis about the atka acetabulum and proximal right femoral fragment status post Girdlestone procedure in this nonweightbearing patient. Narrative 07/31/2015 12:39 PM EDT EXAMINATION: XR FEMUR 2 VIEW RIGHT CLINICAL HISTORY: F/U on R distal femur fracture TECHNIQUE: AP and lateral views right femur COMPARISON: November 09, 2014 FINDINGS: Nonunited upper right femur fracture shows interval sclerosis and remodeling of fragments and expected site of the anatomic acetabulum. Progression of irregularity and remodeling about the atka acetabulum. The femur remains gracile in nature. Absent femoral head. Procedure Note Nathalie Whitaker MD - 07/31/2015 EXAMINATION: XR FEMUR 2 VIEW RIGHT CLINICAL HISTORY: F/U on R distal femur fracture TECHNIQUE: AP and lateral views right femur COMPARISON: November 09, 2014 FINDINGS: Nonunited upper right femur fracture shows interval sclerosis andremodeling of fragments and expected site of the anatomic acetabulum. Progression of irregularity and remodeling about the atka acetabulum. The femurremains gracile in nature. Absent femoral head. IMPRESSION IMPRESSION: Progression of remodeling and sclerosis about the atka acetabulum andproximal right femoral fragment status post Girdlestone procedure in this nonweightbearing patient. Mesha Cabral MD IMG DX ORDERABLES documented in this encounter Visit Diagnoses Diagnosis Neuromuscular scoliosis of lumbar region Other kyphoscoliosis and scoliosis Traumatic brain injury, without loss of consciousness, sequela Acquired dysplasia of hip, unspecified laterality Closed fracture of distal end of right femur with routine healing, unspecified fracture morphology, subsequent encounter Spasticity Abnormal involuntary movements Contracture of elbow, left Neuromuscular scoliosis of lumbar region Other kyphoscoliosis and scoliosis Traumatic brain injury, without loss of consciousness, sequela Neuromuscular scoliosis of lumbar region Other kyphoscoliosis and scoliosis Traumatic brain injury, without loss of consciousness, sequela Acquired dysplasia of hip, unspecified laterality Closed fracture of distal end of right femur with routine healing, unspecified fracture morphology, subsequent encounter documented in this encounter Care Teams Supervisor Roving Department Relationship Specialty Start Date End Date Naina Lindsey MD [address] [place] [address] PCP - General 03/19/10 08/25/16 documented as of this encounter
--- OUTSIDE RECORDS SUMMARY | 2023-11-09 18:16 | XMS_ITS | Encounter Summary ---
Author Organization [facility] Address [facility] [place] [address] Care Team Providers Care Senior Water/Wastewater Engineer Name Role Phone Naina Lindsey MD Primary Care Provider [phone] Reason for Visit * Reason Comments Scoliosis Encounter Details Date Type Department Care Team (Late st Contact Info) Description 12/29/2014 9:00 AM EDT Office [place] [phone] Ty Vogel MD [facility] [place] [address] Scoliosis Discharge Disposition: Home Social History Tobacco Use [...] - - Weight 47.6 kg (105 lb) 12/29/2014 9:39 AM EDT Height 154.9 cm (5' 1) 12/29/2014 9:39 AM EDT Body Mass Index 19.84 12/29/2014 9:39 AM EDT documented in this encounter Progress Notes * Kristen Mendieta MD - 12/29/2014 10:12 AM EDT CHIEF COMPLAINT: Tana is a spastic quadriplegic with cerebral palsy due to TBI at age 1. She is s/p posterior spinal fusion in 2007 with instrumentation for neuromotor scoliosis with dissociation of distal implant. INTERVAL HISTORY: Tana returns with her mother. She reports that she continues to do well. She didhave an infection related to her baclofen pump this winter. Around the same time devan sustained a right distal femur fracture. Tana is nonverbal and nonambulatory and has a complicated past history with care received both at [facility] and in [place]. PAST MEDICAL HISTORY: For full history, please refer to the electronic chart. 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 She had baclofen pump for quite some time that was recently removed. She has ongoing spasticity. She had in the distant past used AFOs, but not for some time. Medications are listed in the chart. ALLERGIES ARE LISTED IN THE CHART WHICH INCLUDE FLUOXETINE AND TEGADERM. REVIEW OF SYSTEMS: No recent illnesses. No fevers. No other skin issues other than low back crease irritation which is currently stable with nystatin powder and gauze. PHYSICAL EXAMINATION: Tana was examined today in her chair. She has some mild torticollis, and neck stiffness. She has clinically obvious scoliosis with apex left lumbar curvature She has significant pelvic tilt. Her ribs contact her pelvis on the left side. Posteriorly, she has a well-healed spine incision both for her instrumentation and for her recent baclofen pump removal. Lower extremity exam reveals very easy hip range of motion. She as obligatory external rotation of her right hip. And hip and knee flexion contractures. There is obvious deformity of right right femur with apex posterior bowing. The femur fracture seems clinically healed, though Tana does point to the area of deformity and her mom is concerned that she does have pain at this location. X-RAYS: Two views of the spine reveal what is already known, in that the right pelvis to meredith connection is dissociated that is evident on x-rays from over a year ago as well. There is residual lumbar scoliosis apex right lumbar which measures ~90 degrees IMPRESSION AND PLAN: We again had a long conversation with Tana's mom about options for Tana. We discussed the potential for revision scoliosis surgery, but the significant risk of such a surgery. We discussed a possible staged procedure with removal of hardware, osteotomies, possible traction and front- back procedures. Given the revision nature of the surgery and history of infection she is atan even higher risk of infection than other neuromuscular patients. Given that she is currently able to sit in a chair and interact without obvious pain from her back and her skin is currently stable(her mom is quite vigilant about this) it would also be reasonable to continue to monitor Tana andonly consider surgery if these factors seem to change. We discussed that there really is no wrong answer in her case given the severity of her deformity. Her mother will consider these options and wewill plan to see her back as needed to discuss further. We also discussed her right leg and evaluated her wheelchair today. Given her recent fracture and associated changes in posture a new chair will be helpful in helping avoid further complications. wrote a prescription for that today. documented in this encounter Plan of Treatment Upcoming Encounters Date Type Department Care Team (Late st Contact Info) Description 11/19/2023 2:30 PM EDT TH Visit (TeleHealth) [place] [phone] Lilli [place] [address] 11/30/2023 12:50 PM EDT [place] [phone] 12/03/2023 12:30 PM EDT Office [place] [phone] Hollie Ambriz MD [facility] [place] [address] documented as of this encounter Visit Diagnoses Diagnosis Scoliosis Scoliosis (and kyphoscoliosis), idiopathic documented in this encounter Care Teams Senior Water/Wastewater Engineer Relationship Specialty Start Date End Date Naina Lindsey MD [address] [place] [address] [place] [address] PCP - General 03/19/10 08/25/16 documented as of this encounter
--- OUTSIDE RECORDS SUMMARY | 2023-11-09 18:16 | XMS_ITS | Encounter Summary ---
Author Organization [facility] [place] [address] Care Team Providers Care Ballet Soloist Name Role Phone Naina Lindsey MD Primary Care Provider [phone] Encounter Details Date Type Department Care Team (Late st Contact Info) Description 06/19/2014 External Results [place] [address] Donnell Dotson MD [facility] [place] [address] Social History Tobacco Use Types Packs/Day Years [...] EDT TH Visit (TeleHealth) [place] [phone] Lilli Joy APRN [facility] [place] [address] 11/30/2023 12:50 PM EDT Appointment [place] [phone] 12/03/2023 12:30 PM EDT Office Visit [place] [phone] Hollie Ambriz MD [facility] [place] [address] documented as of this encounter Procedures Procedure Name Priority Date/Time Associated Diagnosis Comments IMPLANTABLE DEVICES SCAN Routine 05/03/2014 3:51 PM EST documented in this encounter Visit Diagnoses Not on filedocumented in this encounter Care Teams Ballet Soloist Relationship Specialty Start Date End Date Naina Lindsey MD [address] [place] [address] PCP - General 03/19/10 08/25/16 documented as of this encounter
--- OUTSIDE RECORDS SUMMARY | 2023-11-09 18:16 | XMS_ITS | Encounter Summary ---
[place] [address] Care Team Providers Care Agricultural Plow Operator Name Role Phone Naina Lindsey MD Primary Care Provider [phone] Encounter Details Date Type Department Care Team (Late st Contact Info) Description 01/04/2015 Telephone [place] [phone] Camille Griffin RN Social History Tobacco Use Types Packs/Day [...] encounter Miscellaneous Notes * Telephone Encounter - Camille Griffin RN - 01/08/2015 8:40 AM EDT Spoke with mom last week and suggested [facility]. She stated she would call around and knows she can call us for an order when she decides where to go. * Telephone Encounter - Camille Griffin RN - 01/04/2015 10:59 AM EDT Call received from [facility]. They do not have a [place] provider licence so they will not be able to help with the wheelchair. Spoke with mom and she does not want to go through [employer] [facility] again. Will discuss with the team to see if there are other options in [place] for the wheelchair. documented in this encounter Plan of Treatment Upcoming Encounters Date Type Department Care Team (Late st Contact Info) Description 11/19/2023 2:30 PM EDT TH Visit (TeleHealth) [place] [address] Lilli Joy APRN [facility] [place] [address] 11/30/2023 12:50 PM EDT Appointment [place] [address] 12/03/2023 12:30 PM EDT Office Visit Infectious Disease at [place] [phone] Hollie Ambriz MD [facility] [place] [address] documented as of this encounter Visit Diagnoses Not on filedocumented in this encounter Care Teams Agricultural Plow Operator Relationship Specialty Start Date End Date Nain[place] [address] PCP - General 03/19/10 08/25/16 documented as of this encounter
--- OUTSIDE RECORDS SUMMARY | 2023-11-09 18:16 | XMS_ITS | Encounter Summary ---
Author Organization [facility] Address [facility] [place] [address] Care Team Providers Care Instructor Correspondence [employer] Name Role Phone Naina Lindsey MD Primary Care Provider Encounter Details Date Type Department Care Team (Latest Contact Info) Description 07/31/2015 11:18 AM EDT Hospital Encounter XRay at [address] [place] [address] Mesha Cabral MD [facility] [place] [address] Neuromuscular scoliosis of lumbar region; Traumatic brain [...] EDT TH Visit (TeleHealth) [place] [phone] Lilli Joy [place]N [facility] [place] [address] 11/30/2023 12:50 PM EDT [place] [phone] 12/03/2023 12:30 PM EDT Office [place] [phone] Hollie Ambriz MD [facility] [place] [address] documented as of this encounter Procedures Procedure Name Priority Date/Time Associated Diagnosis Comments XR SCOLIOSIS OR TOTAL SPINE 1 VIEW Routine 07/31/2015 12:04 PM EDT 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 Mesha Cabral MD IMG DX ORDERABLES documented in this encounter Visit Diagnoses Diagnosis Neuromuscular scoliosis of lumbar region Other kyphoscoliosis and scoliosis Traumatic brain injury, without loss of consciousness, sequela documented in this encounter Care Teams Instructor [employer]ence [employer] Relationship Specialty Start Date End Date Naina Lindsey MD [address] [place] [address] PCP - General 03/19/10 08/25/16 documented as of this encounter
--- OUTSIDE RECORDS SUMMARY | 2023-11-09 18:16 | XMS_ITS | Encounter Summary ---
Author Organization [facility] [place] [address] Care Team Providers Care Comic Book Writer Name Role Phone Naina Lindsey MD Primary Care Provider [phone] Reason for Referral * Consultation (Routine) - Specialty Diagnoses / Procedures Referred By Contac t Referred To Contact Physical Medicine and Rehab Diagnoses Acquired dysplasia of hip, unspecified laterality Traumatic brain injury, without LOC, sequela Ty Woods MD [facility] [place] [address] Alek Loaiza MD [address] [place] [address] [address] [place] [address] Referral ID Status Reason Start Date Expiration Date V isits Requested Visits Authorized [id number] Consult, Test & Treat 07/29/2016 01/25/2017 1 1 Encounter Details Date Type Department Care Team (Late st Contact Info) Description 07/29/2016 Orders [place] [address] Ty Woods MD [facility] [place] [address] Acquired dysplasia of hip, unspecified laterality; Traumatic brain injury, without LOC, sequela Social History Tobacco Use Types Packs/Day [...] EDT TH Visit (TeleHealth) Infectious Disease at [place] [phone] Lilli Joy [place] [address] 11/30/2023 12:50 PM EDT [place]ointment [place] [address] 12/03/2023 12:30 PM EDT Office Visit Infectious Disease at [place] [phone] Hollie Ambriz MD [facility] [place] [address] Scheduled Referrals Name Type Priority Associated Diagnoses Orde r Schedule Referral to Orthopaedics Outpatient Referral Routine Acquired dysplasia of hip, unspecified laterality Traumatic Brain Injury, Without Loc, Sequela Ordered: 07/29/2016 documented as of this encounter Visit Diagnoses Diagnosis Acquired dysplasia of hip, unspecified laterality Traumatic brain injury, without LOC, sequela documented in this encounter Care Teams Comic Book Writer Relationship Specialty Start Date End Date Naina Lindsey MD [address] [place] [address] [place] [address] PCP - General 03/19/10 08/25/16 documented as of this encounter
--- OUTSIDE RECORDS SUMMARY | 2023-11-09 18:16 | XMS_ITS | Encounter Summary ---
Author Organization [facility] [place] [address] Care Team Providers Care Tour Agent Name Role Phone Naina Lindsey MD Primary Care Provider [phone] Encounter Details Date Type Department Care Team (Late st Contact Info) Description 12/29/2014 Orders [place] [phone] Mesha Cabral MD [facility] [place] [address] Acquired dysplasia of hip, unspecified laterality; Presence of intrathecal baclofen pump; Scoliosis; Spasticity; Traumatic brain injury, sequela Social History Tobacco Use Types Packs/Day [...] EDT TH Visit (TeleHealth) [place] [address] Lilli Joy APRN [facility] [place] [address] 11/30/2023 12:50 PM EDT [place] [address] 12/03/2023 12:30 PM EDT Office [place] [address] Hollie Ambriz MD [facility] [place] [address] documented as of this encounter Visit Diagnoses Diagnosis Acquired dysplasia of hip, unspecified laterality Presence of intrathecal baclofen pump Scoliosis Scoliosis (and kyphoscoliosis), idiopathic Spasticity Abnormal involuntary movements Traumatic brain injury, sequela documented in this encounter Care Teams Tour Agent Relationship Specialty Start Date End Date Naina Lindsey [place] [address] PCP - General 03/19/10 08/25/16 documented as of this encounter
--- OUTSIDE RECORDS SUMMARY | 2023-11-09 18:16 | XMS_ITS | Encounter Summary ---
Author Organization [facility], [facility] Address [facility] [place] [address] Care Team Providers Care Licensed Aircraft Maintenance Engineer Name Role Phone Naina Lindsey MD Primary Care Provider [phone] Encounter Details Date Type Department Care Team (Latest Contact Info) Description 07/31/2015 11:19 AM EDT - 07/31/2015 11:59 PM EDT Hospital Encounter XRay at [address] [place] [address] Mesha Cabral MD [facility] [place] [address] Neuromuscular scoliosis of lumbar region; Traumatic brain injury, without loss of consciousness, sequela; Acquired dysplasia of hip, unspecified laterality; Closed fracture of distal end of right femur with routine healing, unspecified fracture morphology, subsequent encounter Discharge Disposition: Home Social History [...] TH Visit (TeleHealth) [place] [phone] Lilli Joy APRN [facility] [place] [address] 11/30/2023 12:50 PM EDT Appointment [place] [address] 12/03/2023 12:30 PM EDT Office Visit [place] [address] Hollie Ambriz MD [facility] [place] [address] documented as of this encounter Procedures Procedure Name Priority Date/Time Associated Diagnosis Comments XR FEMUR 2 VIEWS RIGHT Routine 07/31/2015 12:03 PM EDT Neuromuscular scoliosis of lumbar region Traumatic brain injury, without loss of consciousness, sequela Acquired dysplasia of hip, unspecified laterality Closed fracture of distal end of right femur with routine healing, unspecified fracture morphology, subsequent encounter documented in this encounter Results * XR Femur 2 View Right (GENERIC) (07/31/2015 12:03 PM EDT) Anatomical Region Laterality Modality Thigh Right Digital Radiogra phy Impressions 07/31/2015 12:39 PM EDT IMPRESSION: Progression of remodeling and sclerosis about the tuscarora acetabulum and proximal right femoral fragment status [...] Progression of irregularity and remodeling about the tuscarora acetabulum. The femur remains gracile in nature. [...] Progression of irregularity and remodeling about the tuscarora acetabulum. The femurremains gracile in nature. Absent femoral head. IMPRESSION IMPRESSION: Progression of remodeling and sclerosis about the tuscarora acetabulum andproximal right femoral fragment status post [...] encounter documented in this encounter Care Teams Licensed Aircraft Maintenance Engineer Relationship Specialty Start Date End Date Naina Lindsey MD [address] [place] [address] PCP - General 03/19/10 08/25/16 documented as of this encounter
--- OUTSIDE RECORDS SUMMARY | 2023-11-09 18:16 | XMS_ITS | Encounter Summary ---
Author Organization [facility] Address [facility] [place] [address] Care Team Providers Care Yellow Pages Space Salesperson Name Role Phone Naina Lindsey MD Primary Care Provider [phone] Reason for Referral * Consultation (Routine) - Closed Specialty Diagnoses / Procedures Referred By Contac t Referred To Contact Orthotics Diagnoses Traumatic brain injury, sequela Spasticity Scoliosis Mseha Cabral MD [facility] [place] [address] Referral ID Status Reason Start Date Expiration Date V isits Requested Visits Authorized [id number] Closed Consult, Test & Treat 11/09/2014 05/08/2015 3 3 Reason for Visit * Reason Comments Follow-up [facility] Encounter Details Date Type Department Care Team (Late st Contact Info) Description 11/09/2014 10:00 AM EDT Office Visit [place] [address] Mesha Cabral MD [facility] [place] [address] Acquired dysplasia of hip, unspecified laterality; Traumatic brain injury, sequela; Spasticity; Scoliosis; Right leg pain Discharge Disposition: Home Social History Tobacco Use [...] Sign Reading Time Taken Comments Blood Pressure 114/81 11/09/2014 10:18 AM EDT Pulse 124 11/09/2014 10:18 AM EDT Temperature - - Respiratory Rate - - Oxygen Saturation - - Inhaled Oxygen Concentration - - Weight 47.6 kg (105 lb) 11/09/2014 10:18 AM EDT per mom Height 157.5 cm (5' 2) 11/09/2014 10:18 AM EDT per mom Body Mass Index 19.2 11/09/2014 10:18 AM EDT documented in this encounter Progress Notes * Mesha Cabral MD - 11/10/2014 7:27 PM EDT CHIEF COMPLAINT: 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 HISTORY OF PRESENT ILLNESS: This is a 19-year-old female, accompanied by her mother. Tana is nonverbal and nonambulatory and has a complicated past history which is partly documented in our medical records from when her care was received here, but there was a two- to three-year interval when her orthopedic care was received at [facility], I do not have those notes available today, mother fills me on the history. 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 She has not ambulated for quite some time, though she does not vocalize speaking in sentences, she can vocalize and indicate physically areas of pain. This year has been a tough one for her because with an elective procedure to remove her baclofen pump she had a significant infection which required repeated washouts and prolonged IV antibiotics. She has finally recovered from that episode and mother has some concerns regarding her daughter's spine alignment where she had previously used a [place] type TLSO scoliosis brace, it does not seem to fit. Tana's curvature may have progressed since that brace had been made more than a year ago. Mother also notes that her ribs on the left side touch her pelvis and she has got some skin irritation in that deep crease as well as posteriorly. PAST MEDICAL HISTORY: For full history, please [...] skin issues other than low back crease irritation. Remainder of review of systems is noncontributory. PHYSICAL EXAMINATION: I examined Tana both while she was in her chair (not her usual chair, but one used for transport) and on the table. She has limited head control, some mild torticollis, and neck stiffness. She has clinically obvious residual scoliosis with apex left lumbar curvature which is quite severe. She has significant pelvic tilt when she is sitting or lying down and a decrease on her left side which courses across the lumbar area. She has a well-healed spine incision both for her instrumentation and for her recent baclofen pump removal. The irritated skin in the creases mother is treating with gauze to help control moisture and there is no true break in the skin currently. Upper extremity exam reveals bilateral shme-xy-[id number] contractures of the shoulders, elbows, and wrists, but she has no thumb and palm deformity and I can extend fingers very well without any evidence of pain. Lower extremity exam reveals very easy hip range of motion, of course with no crepitance. She has wide symmetrical abduction. She has some hip flexion contractures. There is no evidence of any pain with range of motion of the left leg, but she does seem to have some discomfort with right leg range of motion. There is an anterior crease on her right leg and I had picked up on distal femoral fracture from the CT scan in April, so I carefully examined the distal femur which has of course some apex posterior bowing deformity, but there is no point tenderness to palpation or swelling of the distal femur and when I stressed that area, there is no motion or crepitus. She has severely contracted knees bilaterally and stiff feet that are basically in the neutral or calcaneus position bilaterally. No evidence of any skin problems throughout the lower extremities. X-RAYS: Two views of the spine reveal what is already known, in that the right pelvis to meredith connection is dissociated that is evident on x-rays from over a year ago as well. There is residual lumbar scoliosis apex right lumbar which I measured as to about 90 degrees. The remainder of the implant appears intact, though distally and proximally, that is the right spinopelvic connector that is dissociated. Lateral view shows acceptable sagittal contour and again only the one screw to meredith connection appears to be dissociated, no other failure of implant is detected. I also obtained several views of the right lower extremity and we can see of course the proximal femur resections present. There is some heterotopic ossification between the residual proximal femur and the acetabula, but these appear to be separate islands of bone, nothing representing a fusion of the femur to the pelvis currently. There appears to be not only well-healed distal femur fracture, but also remodeling fracture with almost 90 degrees apex posterior angulation on the right side. IMPRESSION AND PLAN: I had a very long discussion with Tana's mother regarding treatment options both for the scoliosis and for the right femur. I advised her that the femur fracture appears completely healed. We can see the fracture on the CT scan of the abdomen from 04/2014 and I cannot tell from that CT scan if the fracture was acute at that point or already healed. The age of this fracture is completely unknown. It appears healed both clinically and radiographically, but both mother and I can agree that Tana seems to have some sort of pain with range of motion of the right leg. I talked about how I would not recommend any surgical treatment for the healed femur fracture currently. Mother is interested to know if realigning it would be helpful and in my opinion getting the femur back out to straight will just make the knee flexion more evident and problematic. Because this fracture appears healed, I would say we should treat with observation only. For Tana's spine, we had a long discussion about what it would take to do any sort of revision. Revision would be geared toward helping to level the pelvis and thus get rid of the skin problems on the contralateral side from the curve. Her left waist crease is very deep and has some minor skin irritation, there has been no major problems, but I expect the irritation may continue over time. Mother is managing very well with gauze and keeping the area dry and she states that with using a spine brace she did not seem to see as many skin problems. What I am recommending in making a prescription for is a soft thoracolumbosacral orthosis which may help relieve some of the pressure on the skin and the ribs to the pelvis on the left side. I advised, however, that this is not a guarantee that it will work, but is worth a try. The alternate solution of revision spine surgery is a very huge undertaking and though certainly we can consider this (this would have to be a referral to [facility] as I am no longer performing spine surgery). I would say we should give Tana some more time to recover from her previous infection before considering going forward with that. I would like to continue to follow this patient pretty closely where as at this age I would recommend one- to two-year followup, because she has some ongoing issues, I would rather see her in six months and we would repeat x-rays of the right leg if she is having pain, but no x-rays of the spine at that point in time. documented in this encounter Plan of Treatment Upcoming Encounters Date Type Department Care Team (Late st Contact Info) Description 11/19/2023 2:30 PM EDT TH Visit (TeleHealth) [place] [phone] Lilli Joy [place]N [facility] [place] [address] 11/30/2023 12:50 PM EDT Appointment [place] [address] 12/03/2023 12:30 PM EDT Office Visit [place] [address]1000 Hollie Ambriz MD [facility] [place] [address] Scheduled Referrals Name Type Priority Associated Diagnoses Orde r Schedule Referral to Othotist Outpatient Referral Routine Traumatic brain injury, sequela Spasticity Scoliosis Ordered: 11/09/2014 documented as of this encounter Results * (ABNORMAL) XR Bilateral [...] idiopathic Right leg pain Pain in limb Acquired dysplasia of hip, unspecified laterality Traumatic brain injury, sequela Spasticity Abnormal involuntary movements Scoliosis Scoliosis (and kyphoscoliosis), idiopathic Right leg pain Pain in limb documented in this encounter Care Teams Yellow Pages Space Salesperson Relationship Specialty Start Date End Date Naina Lindsey MD [address] [place] [address] PCP - General 03/19/10 08/25/16 documented as of this encounter
--- OUTSIDE RECORDS SUMMARY | 2023-11-09 18:16 | XMS_ITS | Encounter Summary ---
Author Organization [facility] [place] [address] Care Team Providers Care Fishing Worker Name Role Phone Emelyn Easley MD Primary Care Provider Encounter Details Date Type Department Care Team (Late st Contact Info) Description 11/17/2016 Orders [place] [address] Josse Mckee MD [facility] [place] [address] Neuromuscular scoliosis of lumbar region; Acquired dysplasia of hip, unspecified laterality Social [...] EDT TH Visit (TeleHealth) [place] [address] Lilli Joy APRN [facility] [place] [address] 11/30/2023 12:50 PM EDT Appointment Radiology at [facility] [place] [address] 12/03/2023 12:30 PM EDT Office Visit Infectious Disease at [facility] [place] [address] Hollie Ambriz MD [facility] [place] [address] documented as of this encounter Results * [...] injury. Josse Mckee MD IMG DX ORDERABLES * XR Scoliosis or Total Spine 2 [...] of lumbar region Other kyphoscoliosis and scoliosis Acquired dysplasia of hip, unspecified laterality Neuromuscular scoliosis of lumbar region Other kyphoscoliosis and scoliosis Acquired dysplasia of hip, unspecified laterality documented in this encounter Care Teams Fishing Worker Relationship Specialty Start Date End Date Emelyn Easley MD [address] [place] [address] PCP - General Family Medicine 08/26/16 05/26/18 documented as of this encounter
--- OUTSIDE RECORDS SUMMARY | 2023-11-09 18:16 | XMS_ITS | Encounter Summary ---
Author Organization [facility] Address [facility] [place] [address] Care Team Providers Care Quality Assurance Name Role Phone Naina Lindsey MD Primary Care Provider [phone] Encounter Details Date Type Department Care Team (Late st Contact Info) Description 11/09/2014 Orders [place] [address]1000 Mesha Cabral MD [facility] [place] [address] Scoliosis Social History Tobacco Use Types Packs/Day [...] EDT TH Visit (TeleHealth) [place] [phone] Lilli Joy APRN [facility] [place] [address] 11/30/2023 12:50 PM EDT [place] [address] 12/03/2023 12:30 PM EDT Office Visit Infectious Disease at [facility] [place] [place] [address] Hollie Ambriz MD [facility] [place] [address] documented as of this encounter Results * XR scoliosis 2 [...] Diagnoses Diagnosis Scoliosis Scoliosis (and kyphoscoliosis), idiopathic Scoliosis Scoliosis (and kyphoscoliosis), idiopathic documented in this encounter Care Teams Quality Assurance Relationship Specialty Start Date End Date Naina Lindsey MD [address] [place] [address] PCP - General 03/19/10 08/25/16 documented as of this encounter
--- OUTSIDE RECORDS SUMMARY | 2023-11-09 18:16 | XMS_ITS | Encounter Summary ---
[place] [address] Care Team Providers Care Roll Line Operator Name Role Phone Emelyn Easley MD Primary Care Provider [phone] Reason for Visit * Diagnostic Test (Routine) - Closed Specialty Diagnoses / Procedures Referred By Contac t Referred To Contact Radiology Diagnoses Traumatic brain injury, without LOC, sequela Acquired dysplasia of hip, unspecified laterality Spasticity Neuromuscular scoliosis of lumbar region Procedures NM Whole Body Bone Scan Vanda Carter PA [facility] [place] [address] [place] [address] Referral ID Status Reason Start Date Expiration Date V isits Requested Visits Authorized [id number] Closed Specialty Service Requested 11/24/2016 11/24/2017 1 1 Encounter Details Date Type Department Care Team (Latest Contact Info) Description 12/10/2016 2:00 PM EDT - 12/10/2016 11:59 PM EDT Hospital Encounter [place] [address] Josse Mckee MD [facility] [place] [address] Discharge Disposition: Home Social History Tobacco Use [...] EDT TH Visit (TeleHealth) [place] [phone] Lilli Joy APRN [facility] [place] [address] 11/30/2023 12:50 PM EDT [place] [address]1000 12/03/2023 12:30 PM EDT Office [place] [address] Hollie Ambriz MD [facility] [place] [address] documented as of this encounter Procedures Procedure Name Priority Date/Time Associated Diagnosis Comments NM BONE SCAN WHOLE BODY Routine 12/10/2016 3:33 PM EDT Traumatic brain injury, without LOC, sequela Acquired dysplasia of hip, unspecified laterality Spasticity Neuromuscular scoliosis of lumbar region documented in this encounter Visit Diagnoses Not on filedocumented in this encounter Administered Medications Inactive Administered Medications - up to 3 most recent administrations Medication Order MAR Action Action Date Dose Rate Site ALPRAZolam (XANAX) 0.5 mg tablet 1 dose, Starting on Thu12/10/16 at 1423, Until Thu12/10/16 at 1430, TOR [place]: cabinet override Given 12/10/2016 2:30 PM EDT 0.5 mg documented in this encounter Care Teams Roll Line Operator Relationship Specialty Start Date End Date Emelyn Easley MD [address] [place] [address] PCP - General Family Medicine 08/26/16 05/26/18 documented as of this encounter
--- OUTSIDE RECORDS SUMMARY | 2023-11-09 18:17 | XMS_ITS | Encounter Summary ---
Author Organization [facility] Address [facility] [place] [address] Care Team Providers Care Head Transfer Clerk Name Role Phone Naina Lindsey MD Primary Care Provider [phone] Reason for Visit * Reason Comments Post-op Problem Encounter Details Date Type Department Care Team (Latest Contact Info) Description 05/20/2014 8:13 PM EST - 06/02/2014 4:25 PM [facility] [[email or web address] Hospital Encounter [place] [address] Belkis Louie MD [facility] [place] [address] Freddy Burciaga MD [facility] [place] [address] Jamaal Samuel MD [facility] [place] [address] Febrile illness, acute Discharge Disposition: Home with VNA Social History [...] Reading Time Taken Comments Blood Pressure 95/61 06/02/2014 12:00 PM EST Pulse 98 06/02/2014 12:00 PM EST Temperature 37.4 ??C (99.3 ??F) 06/02/2014 1 2:00 PM EST Respiratory Rate 18 06/02/2014 12:0 0 PM EST Oxygen Saturation 100% 06/02/2014 12: 00 PM EST Inhaled Oxygen Concentration - - Weight 47.6 kg (105 lb) 05/25/2014 12:0 8 PM EST Height 157.5 cm (5' 2) 05/27/2014 1:00 PM EST per Mom's report Body Mass Index 19.2 05/25/2014 12:08 PM EST documented in this encounter Discharge Instructions * Discharge Instructions* Alek Sinha APRN - 06/02/2014 2:28 PM EST * Patient Instructions* Alek Sinha APRN - 06/02/2014 2:28 PM EST Discharge instructions: Activity: x Routine activities as tolerated. Your child may fatigue quite easily Avoid contact sports and other rough activities for 3 months after surgery Diet: regular Medications: Your Medications New Medications Dose Details bisacodyl 10 mg Supp Commonly known as: DULCOLAX Place 1 suppository rectally daily as needed. 10 mg Quantity: 60 suppository Refills: 3 levofloxacin 750 mg Tab Commonly known as: LEVAQUIN Take 1 tablet by mouth every morning for 10 days. 750 mg Quantity: 10 tablet Refills: 0 Continued medications, unchanged Dose Details acetaminophen 650 mg/20.3 mL Soln Commonly known as: TYLENOL Take 22.3 mLs by mouth every 6 hours. 15 mg/kg/dose Refills: 0 baclofen 10 mg Tab Commonly known as: LIORESAL 10 MG = 1 Tablet(s), PO, QPM Refills: 0 diaZEPam 5 mg/5 mL (5 mL) Soln Commonly known as: VALIUM Take 5 mLs by mouth 2 times daily. 5 mg Quantity: 100 mL Refills: 0 ibuprofen 100 mg/5 mL Susp Commonly known as: ADVIL;MOTRIN 300 mg, PO, Q6H prn Refills: 0 INTROVALE 0.15-30 mg-mcg 3mpk Take 1 tablet by mouth daily. Generic drug: levonorgestrel-ethinyl estradiol 1 tablet Refills: 0 MIRALAX ORAL Take by mouth daily. Refills: 0 STOPPED Medications oxyCODONE 5 mg Tab Commonly known as: ROXICODONE Wound care: Incision/dressings: Dressings can be removed and she can resume bathing once you get home. Shower/Bath: Don???t submerge the incision under water in a bathtub, hot tub, or go swimming until two weeks after surgery. Sutures: Your sutures are not dissolvable and will need to be removed in 2 weeks after surgery. Things to Watch For: ? Leakage of fluid from the incision ? Excessive redness surrounding the wound ? Increased swelling underneath the wound ? Worsening headache ? Stiff neck ? Sensitivity to light ? Fever greater than 101.5 F ? Anything else that is concerning to you. Follow-up appointments: Follow up in 2 weeks on June 08 at 4:30 pm. Call Pediatric Neurosurgery if you need to reschedule your follow-up appointment. Your attending pediatric neurosurgeon is: Dr. Samuel VNA/ home care orders: New (Edit) Durable Medical Equipment Order Hospital Performed, Routine, Qty-1 Name/Description of requested item: Hospital bed mattress Size requested: twin bed Vendor Name/Contact information: Rosas Smith (Edit) Referral for Outpatient Antibiotics Routine, Hospital Performed Vendor / contact information: [facility] Patient location post discharge: home Service requested: IV abx Start date: 05/26/2014 Responsible MD post discharge contact info: PCP Luis (Edit) Referral to Home Health - at DISCHARGE Routine, Clinic Performed Agency name and contact information: [facility] Patient location post discharge: home What services are requested: Registered Nurse, Home Health Aide, Physical Therapy, Occupational Therapy Start date: 05/26/2014 Responsible MD post discharge contact info: PCP PATIENT'S LOCATION: Tana Hayes Dirk [address] [place] [phone] (home) In discussion with the attending physician, it is certified that this patient is under their care and that they, or a Nurse Practitioner,Clinical Nurse specialist or Physician Scientist who is working directly with them, had a face to face encounter that meets the physician face to face encounter requirements with this patient on 05/24/2014 The encounter with the patient was in whole, or in part, for the following medical condition, which is the primary reason for home health careservices: infection on IV abx In discussion with the provider, it is certified that, based on their findings, the following services are medically necessary for home health services. To provide the following care/treatments with the clinical findings supporting the need for services as follows: HOME CARE ORDERS: RN ORDERS:Assess wound or incision, vital signs, cardiopulmonary status, nutrition, hydration, elimination, meds effectiveness and management; reinforce education re health issues. PT: Continue with therapies OT: Continue with therapies EDI DEVELOPER: Continue support HOME HEALTH CARE AGENCY: [facility]. PHONE: [phone] FAX: [phone] Start of care: 05/26/14 Please note that any additional orders needs or changes will need to be obtained from this patient's PCP: MD Coby [address] / [place] [address] All A agencies which cover the area of patient's residence have been reviewed, either verbally or in writing, and patient/family have chosen the home health care agency noted Emergency contact: After hours and weekends, call the [facility] stone operator at and ask them to page the neurosurgery resident customer experience consultant. documented in this encounter Medications at Time of Discharge Medication Sig Dispensed Refills Start Date End Date levofloxacin (LEVAQUIN) 750 mg Tablet Take 1 tablet by mouth every morning for 10 days. 10 tablet 0 06/02/2014 06/12/2014 bisacodyl (DULCOLAX) [address] 1 [...] prn 07/11/2010 documented as of this encounter Progress Notes * Elmer Cotto RN - 06/02/2014 4:03 PM EST Prior to discharge I have completed the followin) If the patient had any home medications being stored in our medication room I have ensured that they have been returned. 2) Reviewed the discharge navigator and documented all LDA's appropriately. 3) Confirmed patient assessment for flu/pneumococcal vaccination and eligibility, documented administration and/or patient refusal as appropriate. 4) Added nursing instructions and/or health information to the multidisciplinary notes. 5) Printed the After Visit Summary (AVS) and given to the patient or sales representative groceries. 6) If VNA was ordered, I faxed the discharge summary (not the AVS) to the VNA. I have provided written discharge instructions and/or AVS to mom. Participants have stated and/or demonstrated understanding of the followin) Discharge instructions. 2) Follow up visit plan. 3) Signs and symptoms to call primary doctor. 4) Where to obtain any medical supplies if needed (if no, contact [facility]). 5) Discharge medication plan. 6) Prescriptions: (x ) Have been filled and medications are in hand ( ) Have been called in or electronically sent by MD to local pharmacy and family has confirmed that the pharmacy has prescriptions and are able to fill them. ( ) Paper scripts in hand and family has confirmed that the pharmacy is able to fill them. ( ) No prescriptions needed. Additional Nursing Comments: Patient discharged to home with mom. Elmer Cotto RN * Elmer Flanagan MD - 06/02/2014 1:26 PM EST Follow-up Inpatient ID Consult Note Active ID Issues: Surgical site infection with Pseudomonas and CoNS tracking down to CSF (dural tear) without clinical evidence of overt meningitis Antibiotics: Ceftazidime 2 gm IV Q8 hours (05/22-ongoing) Ciprofloxacin 250 mg PO TID (05/27-ongoing) Vancomycin 1 gm IV Q 8 hours (05/27 - ongoing) 24 hour events/Subjective: Remains afebrile. Per Mom, she is doing well, incisions are healing. Normal WBC count. Physical Exam: Last value Range last 48 hrs Temperature Temp: 37.4 ??C (99.3 ??F) Temp: [36.5 ??C (97.7 ??F)-37.8 ??C (100 ??F)] Heart Rate Heart Rate: 98 Heart Rate: [79-138] Blood Pressure BP: 95/61 mmHg BP: (86-119)/(53-84) Respiratory Rate Resp: 18 Resp: [14-25] SpO2 SpO2: 100 % SpO2: [95 %-100 %] General NAD Neuro Spasticity with contractures of LE's Eyes No icterus, no injection Throat Mucous membranes moist. CV RRR Skin Posterior flank incision with minimal erythema but no drainage. Anterior flank incision clean without any drainage or erythema. Back incision still with minimal drainage but no surrounding erythema or fluctuance. Labs: WBC 7.4 Creatinine 0.30 Microbiology: 05/20 Blood cultures - negative 05/20 Urine cultures - negative 05/20 Intraoperative Cultures - lumbar wound cultures #1, #2, baclofen pump tubing - Pseudomonas aeruginosa, escobar-sensitive 05/26 Intraoperative Cultures - posterior flank - neg Anterior flank - CoNS from broth culture Lumbar - GPCs on gram stain; Pseudomonas aeruginosa in culture SUSCEPTIBILITY RESULTS Pseudomonas aeruginosa PAT Interp Aztreonam S Ceftazidime S Ciprofloxacin S Gentamicin S Levofloxacin S Meropenem S Piperacillin/Tazobactam S Tobramycin S SUSCEPTIBILITY RESULTS Coagulase negative Staphylococcus species PAT Interp Ampicillin R Cefazolin S Ceftriaxone S Ciprofloxacin S Clindamycin S Erythromycin R Gentamicin(1) S Levofloxacin S Oxacillin S Penicillin(2) R Trimethoprim/Sulfa S Tetracycline S Vancomycin S Imaging/Studies: None new Impressions: 18 y.o. female with h/o TBI, spastic quadriplegia, admitted with a surgical site infection after removal of a baclofen pump on 05/11/14. She underwent washout with tubing removal on 05/20 where she wasfound to have a dural tear/CSF leak, which was repaired. Unfortunately, she had clinical deterioration with significant erythema and drainage from the surgical site prompting return to the operating room for further debridement on Thursday, 05/26. Cultures growing escobar- sensitive Pseudomonas and now Coagulase negative Staphylococcus from Thursday's procedure. Imaging has not demonstrated deeper infection s/a epidural abscess, etc. Both species are susceptible to Cipro, but we suggest treatment with lev ofloxacin, which is better for gram-positives. Recommendations: -Discharge on levofloxacin, 750 mg qd, for 10 more days (will complete 3-4 weeks of treatment total) -No need to f/u with ID as long as she has close f/u with PCP and Neurosurg Patient discussed with Dr. Flanagan. Nely Boss MD Fellow, Infectious Disease 06/02/2014 ID Attending I reviewed Ms. Shelton's complicated history and discussed the case with Dr. Boss. Ms. Shelton had left the floor by the time I arrived and I did not interview or examine her myself. I agree with the plan to treat with levofloxacin for another 10 days. * Deonna Cooper - 06/02/2014 10:21 AM EST Nutrition Services - Follow-up Note Tana Shelton : 1995 AGE: 18 y.o. Patient Active Problem List Diagnosis Date Noted ??? Presence of intrathecal baclofen pump 02/28/2014 ??? Spasticity 07/20/2013 ??? Scoliosis 11/07/2010 ??? Edema leg 11/04/2010 ??? Acquired dysplasia of hip, bilateral 08/16/2010 ??? 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 Assessment: Mother denies further need for nutrition education. Nutrition Plan: Continue Current Diet. Recommend Daily Multi Vitamins. Encourage good po intake. Monitor weight. Support and encouragement provided. Nutrition services to follow weekly thru hospital course unless consulted in the interim. ALEJANDRO Estrella * Darius Maguire - 06/02/2014 7:18 AM EST Neurosurgery - Inpatient Progress Note ID: Tana Shelton, 18 y.o. female s/p removal of retained hardware, washout of infection 05/20 POD 10 POD 5 Interval Hx: -ALEKSANDRA -Neurologically stable - Afebrile Objective: Medications: Scheduled Meds: ??? nystatin Topical BID ??? docusate sodium 100 mg Oral BID ??? ciprofloxacin (CIPRO) oral liquid 250 mg Oral BID ??? vancomycin 1 g Intravenous Q8H ??? cefTAZidime (FORTAZ) 2g vial attach to sodium chloride 0.9% 50 mL Mini-Bag Plus 2 g [id number] ??? baclofen 10 mg Oral Nightly ??? levonorgestrel-ethinyl estradiol 1 tablet Oral Daily ??? polyethylene glycol 17 g Oral Daily ??? sodium chloride 0.9 % 5 mL Intravenous BID ??? diaZEPam 5 mg Oral BID Continuous Infusions: ??? sodium chloride 0.9% with potassium chloride 20 mEq 50 mL/hr (06/01/14 1705) PRN Meds:acetaminophen OR acetaminophen, flu vaccine (36 mos+) (PF), HYDROmorphone, gadobutrol,heparin flush (PF), diphenhydrAMINE, metoclopramide, ondansetron, sodium chloride 0.9 %, lidocaine,bisacodyl, oxyCODONE Vitals: Temp: [36.5 ??C (97.7 ??F)-37.3 ??C (99.1 ??F)] Heart Rate: [79-138] Resp: [14-25] BP: (87-119)/(53-84) SpO2: [95 %-100 %] I/O: Intake/Output Summary (Last 24 hours) at 06/02/14717 Last data filed at 06/02/14 0557 Gross per 24 hour Intake 2105.4 ml Output 2119 ml Net -13.6 ml Labs: Recent Labs 06/02/14 0555 06/01/14 1240 WBC 7.4 7.4 HGB 11.0* 12.0 PLATELET 362 414* Recent Labs 06/02/14 0555 06/01/14 1240 NA 139 140 K 4.0 3.9 CL 104 104 CO2 23 25 BUN 5* 4* CREATININE 0.30* 0.38* No results for input(s): PT, INR in the last 72 hours. Cx: pseudomonas, CONS Physical Exam: Awake, alert Says a few words appropriately to questions PERRL Does not comply with EOM exam No facial droop Spastic quadriparesis Small amount of drainage on lumbar dressing but none expressed from wound Assessment/Plan:: 18 y.o. female s/p removal of retained hardware, washout of infection 05/20. Neurologically stable. - Close neurological observation, q4 checks - On ceftazadime/vancomycin/ciprofloxacin - would clx with CONS + pseudomonas - PICC - Hold anticoagulation - GI PPx - ID c/s Associated attestation - Jamaal Samuel MD - 06/02/2014 10:56 AM EST Tana looks good. No fever. Sensitivities complete. Wounds healing. Will defer to ID plan. OK with discharge when ID has a firm antibiotic plan. * Mary Joe, OT - 06/01/2014 4:52 PM EST Occupational Therapy Treatment Note Visit #: 3 Patient Dx: Tana Shelton is a 18 y.o. 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 Apparently, she had the baclofen pump placed in 2007, but it hadn't been working so it was removed on 05/11/14. She went home after that procedure but then developed fevers with erythema around the incision site as well as drainage from the incision. She was subsequently admitted on 05/20 and taken tothe OR for washout of the site (by Dr. Burciaga). During the procedure, she was noted to have a CSF leak, so the remaining tubing was removed and everything was closed. (per chart review, Dr. Crabtree 05/23/14.) Precautions/Special Considerations: fall risk; high risk for skin breakdown; Keep SBP <160; joint contractures Activity Order: activity as tolerated Code Status: full code Interval History: no acute events, afebrile overnight, episode of elevated HR this am S: Kenneth Valiente. [facility], [id number] singing ABCs and counting along with stretches O: Patient seen for therapeutic activities and demonstrated the following: ?? Pt alert and engaged today during therapy; laughing and counting along. Following some simple commands such as turn you head side to side, up and down, and squeeze my hand. ?? Pt tolerated gentle AAROM and stretching to all available extremities and repositioning. Tana appeared more fussy with LE stretching today compared to usual ?? UE AAROM: RIGHT LEFT SHOULDER Flexion 0-130* 0-165* Extension WFL WFL Abduction 0-150* 0-160* Adduction WFL WFL Internal rotation WFL WFL External rotation 0-55* 0-60* ELBOW Flexion WFL WFL Extension 0-120* 0-125* WRIST Flexion WFL WFL Extension 0-40* 0-55* Able to fully range B fingers, form full grasp. Pt able to initiate L palmar grasp upon command, but unable to on R side. Pt actively reaching R shoulder above head, using R UE to assist L UE with AAROM, shoulder flexion ?? LE AAROM: RIGHT LEFT HIP Flexion WFL WFL Abduction 0-80* 0-75* Adduction WFL WFL KNEE Flexion WFL WFL Extension 0-90* 0-100* ANKLE Dorsiflexion > WFL, contractures >WFL, contractures Plantarflexion 0-40 0-38* ?? Pt left laying supine in bed, Rashi intact, positioned with pillows, mom at bedside Pain: pt grimaces and becomes fussy with knee and ankle AA ROM and R and L toe stretch. Pt laughingand counting along during remainder of stretching exercises Education: Parent education ongoing re: role of OT, therapeutic stretching, AAROM, positioning, d/cplans, recommendation, safety. Staff Communication: Patient status, treatment, and mobility recommendations discussed with nursing/other staff. A: Pt tolerating gentle AAROM and stretching to all available extremities. Pt tolerated repositioning and demonstrated more active movement of R and L UE; following commands well. Pt turning head side to side and up and down, and actively squeezing therapist's hand with R UE upon command. Pt becoming vocal and fussy with LE stretching, RN aware. Pt will benefit from ongoing therapeutic interventions to achieve pt's and therapy goals Recommendations: Equipment needs at discharge: pt has all necessary equipment. Discharge Recommendations: home PT/OT services in addition to school services. Anticipate pt to d/chome with support and continued PT/OT/SENIOR FIELD ENGINEER/VNA services. Staff communication/Mobility Recommendations: Pt. Would benefit from PROM to (B) LEs and (B) UEs daily and positioning upright in chair for mealsdaily as able. Goals: To be achieved by 06/01/14: ?? Pt will tolerate repositioning pt in bed, w/c, and bedside chair to maintain skin integrity ?? Pt will tolerate gentle PROM and AAROM, stretching and massage. ?? Pt will self feed finger foods using L UE, and R UE for stabilization ?? Family to demonstrate understanding of positioning to decrease risk of skin breakdown, contractures, and loss of range of motion. Plan: Pt to be seen 3-5 per week for therapy including role of OT, positioning, gentle PROM and stretching, massage, recommendations and d/c planning. Eval date: 05/24/2014 Total time spent with patient: 35 minutes Total timed interventions: 30 minutes for TherEx-F Pager: [phone] Mary Joe OT Occupational Therapy Rehabilitation Department * Isra Perez RN - 06/01/2014 2:43 PM EST Patient Name: Tana Shelton Patient Age: 18 y.o. Birthdate: 1995 Admit date: 05/20/2014 Attending Physician: Jamaal Samuel MD OFFICE OF CARE MANAGEMENT Farhana Perez RN Pager: [phone] CLINICAL PLATEMAKER PROGRESS NOTE e-DH reviewed. Report received from DEMI Sanchez. Patient continues to require acute inpatient care for the treatment of infection. Patient remains on triple abx while awaiting final cultures. [facility] and [facility] have been referred to for discharge. Met with patient's mother at bedside. Mom had multiple questions the other day regarding equipment for home. Mattress for hospital bed was ordered and delivered to home from [facility]. Tomasa Sling was ordered and is to be delivered by [facility] when it ships to [facility] warehouse. TLSO brace to be fitted by [employer]. Mom also inquired about a new motorized wheelchair. Called [facility] in [place] to see if patient would qualify, left message with Oliver- the rehab aide for [facility]. Patient will need a assessment and lot of paperwork to be filled out. Relayed this to patient's mother and she will look into this at a later date. Plan: [facility] will continue to follow for coordination of care and to facilitate discharge planning. * Darius Maguire - 06/01/2014 6:44 AM EST Neurosurgery - Inpatient Progress Note ID: Tana Shelton, 18 y.o. female s/p removal of retained hardware, washout of infection 05/20 POD 10 POD 5 Interval Hx: -ALEKSANDRA -Neurologically stable - Afebrile Objective: Medications: Scheduled Meds: ??? nystatin Topical BID ??? docusate sodium 100 mg Oral BID ??? ciprofloxacin (CIPRO) oral liquid 250 mg Oral BID ??? vancomycin 1 g Intravenous Q8H ??? cefTAZidime (FORTAZ) 2g vial attach to sodium chloride 0.9% 50 mL Mini-Bag Plus 2 g [id number] ??? baclofen 10 mg Oral Nightly ??? levonorgestrel-ethinyl estradiol 1 tablet Oral Daily ??? polyethylene glycol 17 g Oral Daily ??? sodium chloride 0.9 % 5 mL Intravenous BID ??? diaZEPam 5 mg Oral BID Continuous Infusions: ??? sodium chloride 0.9% with potassium chloride 20 mEq 50 mL/hr (05/31/14 1445) PRN Meds:acetaminophen OR acetaminophen, flu vaccine (36 mos+) (PF), HYDROmorphone, gadobutrol,heparin flush (PF), diphenhydrAMINE, metoclopramide, ondansetron, sodium chloride 0.9 %, lidocaine,bisacodyl, oxyCODONE Vitals: Temp: [36.8 ??C (98.2 ??F)-37.8 ??C (100 ??F)] Heart Rate: [82-124] Resp: [16-22] BP: (86-115)/(57-81) SpO2: [98 %-100 %] I/O: Intake/Output Summary (Last 24 hours) at 06/01/14 0644 Last data filed at 06/01/14 06 Gross per 24 hour Intake 2990.3 ml Output 1585 ml Net 1405.3 ml Labs: Recent Labs 05/30/14 0650 05/29/14 07 WBC 7.6 6.6 HGB 11.3 11.4 PLATELET 368 330 Recent Labs 05/30/14 0650 05/29/14 07 NA 137 142 K 3.9 3.9 CL 101 106 CO2 24 22 BUN 4* 5* CREATININE 0.29* 0.31* No results for input(s): PT, INR in the last 72 hours. Cx: pseudomonas, CONS Physical Exam: Awake, alert Says a few words appropriately to questions PERRL Does not comply with EOM exam No facial droop Spastic quadriparesis Small amount of drainage on lumbar dressing but none expressed from wound Assessment/Plan:: 18 y.o. female s/p removal of retained hardware, washout of infection 05/20. Neurologically stable. - Close neurological observation, q4 checks - On ceftazadime/vancomycin/ciprofloxacin - would clx with CONS + pseudomonas - PICC - Hold anticoagulation - GI PPx - ID c/s Associated attestation - Jamaal Samuel MD - 06/01/2014 12:39 PM EST Tana looks good. Waiting on final culture results. Intermittent elevated HR which appears to be baseline when looking over last few days of hospital records. No fevers. OK to discharge home when cleared by ID team. Mom asked about ordering a new brace, and I have deferred on this until Tana has recovered and I can review the [facility] records and films * Natividad Esqueda, PT - 05/31/2014 3:23 PM EST Physical Therapy Treatment Note Visit #: 4 Patient Dx: Tana Shelton is a 18 y.o. 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 Patient with the following active problems: Patient Active Problem List Diagnosis Code ??? 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 Acquired dysplasia of hip, bilateral 736.39 ??? Edema leg 782.3 ??? Scoliosis 737.30 ??? Spasticity 781.0 ??? Presence of intrathecal baclofen pump V45.89 PMH: History reviewed. No pertinent past medical history. Social History: Patient lives with her family in a single story home in [place], [place]. Pt's mother reports that there is no stair requirement, and that she has all necessary equipment. Stairs: 0 without a rail to enter Baseline Mobility: Completely dependent for all care, home nursing VNA services 3x/week, school-based PT/OT/SENIOR FIELD ENGINEER, pt due to receive a communication device within the next week or so and has not yet had training on the device Equipment at home: pt's mother reports that she has all necessary equipment Precautions / Special Considerations: Full code; High risk for skin breakdown; At risk to fall; Keep SBP <160 Activity Orders: Activity as tolerated Staff communication/Mobility Recommendations: Pt. Would benefit from PROM to (B) LEs daily and positioning upright in chair for meals daily as able. Interval History: no acute events Subjective: pt very smiley today, much more vocal than in previous treatment session, counting withthis news writer during stretching Objective: Patient seen for 45 mins for functional therapeutic exercise to address goals. Pt demonstrated the following: ?? Pt supine in bed upon arrival ?? Pt dependently transferred to wheelchair with maximal assist x1 and moderate assist x second person ?? Pt enjoyed wheelchair ride around floor ?? Passive stretching provided to (B) LEs in the following muscle groups: ?? Gentle to HIPS: flexors, internal rotators, adductors ?? KNEES: extensors (HS) ?? ANKLES: dorsiflexors, invertors ?? LE PROM: RIGHT LEFT HIP Flexion WFL WFL Abduction 35* 40* Adduction WFL WFL KNEE Flexion WFL WFL Extension (-) 30* (-) 20* ANKLE Dorsiflexion > WFL >WFL Plantarflexion (-) 10* (-) 8* TOES Great toe dorsiflexion (-) 2* 0* Great toe plantarflexion WFL WFL ?? Passive stretching provided to (B) UEs in the following muscle groups: ?? SHOULDERS: extensors, internal rotators, adductors ?? Pt helped this news writer with opposite UE when performing stretching as able ?? ELBOWS: flexors ?? UE PROM: RIGHT LEFT SHOULDER Flexion 130* 165* Extension WFL WFL Abduction 150* 160* Adduction WFL WFL Internal rotation WFL WFL External rotation 55* 60* ELBOW Flexion WFL WFL Extension 120 115 WRIST Flexion WFL WFL Extension 40* 55* ?? Pt dependently transferred back to bed with moderate assist x 2 ?? Pt left resting comfortably in bed with rashi monitor secured, call fay in reach Vitals: Temperature Temp: 37.4 ??C (99.3 ??F) Heart Rate Heart Rate: 124 Blood Pressure BP: 114/81 mmHg Respiratory Rate Resp: 18 SpO2 SpO2: 98 % Pain: 3/10 on FLACC scale Education: Patient and her mother have been educated on Exercise, Positioning, Safety , Home program and Role of therapy and pt's mother verbalizes understanding. Assessment: Tana Shelton admitted for management of infected baclofen pump explantation site s/p washout. Pt very social during today's session, playing with toys, playfully tricking this news writer when counting during passive stretching, and helping to perform UE AAROM as able. Pt reports that joints feel better following PROM and passive stretching, however consistently demonstrates dislike for ankle and toe stretching. Pt will benefit from ongoing therapeutic interventions to achieve therapy goals. Physical Therapy Goals: To be achieved by 06/02/14: 1. Maintain ROM in neck, trunk, and extremities. ONGOING 2. Assist pt in maintaining skin and joint integrity through positioning/splinting. ONGOING 3. Pt will participate in active/active assisted exercise to promote strength and ROM for functional mobility. ONGOING 4. Family to demonstrate understanding of positioning to decrease risk of skin breakdown, contractures, and loss of range of motion. ONGOING Plan: Pt to be seen 3-5 times per week for therapy including Bed mobility, Transfers, Exercise, Positioning and Home program. Patient agrees with plan as stated above. Initial Evaluation Date: 05/24/14 Discharge Recommendations: Patient would benefit from continued therapeutic interventions 2-3 timesa week as provided in a home environment to progress toward functional goals. No other consults recommended at this time Equipment needs: Patient has all necessary equipment. Total time spent with patient: 45 minutes Total timed interventions: 45 minutes for functional therapeutic exercise Natividad Esqueda PT, DPT 05/31/2014 Pager: [phone] Physical Therapy Inpatient Rehabilitation Department * Nathalie Weller RN - 05/30/2014 6:39 PM EST I am in agreement with student nurse Pamella Graves's assessment and recommendations. Small rash noted on pt's perineal area approx [phone], MD's made aware. Will continue to monitor. * Isra Perez RN - 05/30/2014 2:32 PM EST Patient Name: Tana Shelton Patient Age: 18 y.o. Birthdate: 1995 Admit date: 05/20/2014 Attending Physician: Jamaal Samuel MD OFFICE OF CARE MANAGEMENT Farhana Perez RN Pager: [phone] CLINICAL PLATEMAKER PROGRESS NOTE e-DH reviewed. Report received from DEMI Sanchez. Patient continues to require acute inpatient care for the treatment of infection. Patient is on triple abx. Patient needs a new mattress for her hospital bed at home. Patient's mother would like order placed with [facility]. Order pended and booking sent via mInfo Plan: CRC will continue to follow for coordination of care and to facilitate discharge planning. * Mary Joe OT - 05/30/2014 10:27 AM EST Occupational Therapy Treatment Note Visit #: 3 Patient Dx: Tana Shelton is a 18 y.o. 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 Apparently, she had the baclofen pump placed in 2007, but it hadn't been working so it was removed on 05/11/14. She went home after that procedure but then developed fevers with erythema around the incision site as well as drainage from the incision. She was subsequently admitted on 05/20 and taken tothe OR for washout of the site (by Dr. Burciaga). During the procedure, she was noted to have a CSF leak, so the remaining tubing was removed and everything was closed. (per chart review, Dr. Crabtree 05/23/14.) Precautions/Special Considerations: fall risk; high risk for skin breakdown; Keep SBP <160; joint contractures Activity Order: activity as tolerated Code Status: full code Interval History: no acute events; pt to OR on 05/26 for washout 2/2 active drainage from both lumbar and 2 flank incisions; CARMELLA drain over weekend post- operatively, removed 05/28 S: counting; +smiles and laughing; go O: Patient seen for therapeutic activities and demonstrated the following: ?? Pt alert and engaged today during therapy; laughing and counting along. Following some simple commands such as turn you head side to side, up and down, and squeeze my hand. ?? Pt tolerated gentle AAROM and stretching to all available extremities and repositioning. ?? UE AAROM: RIGHT LEFT SHOULDER Flexion 0-130* 0-165* Extension WFL WFL Abduction 0-150* 0-160* Adduction WFL WFL Internal rotation WFL WFL External rotation 0-55* 0-60* ELBOW Flexion WFL WFL Extension 0-120* 0-125* WRIST Flexion WFL WFL Extension 0-40* 0-55* Able to fully range B fingers, form full grasp. Pt able to initiate L palmar grasp upon command, but unable to on R side ?? LE AAROM: RIGHT LEFT HIP Flexion WFL WFL Abduction 0-80* 0-75* Adduction WFL WFL KNEE Flexion WFL WFL Extension 0-90* 0-100* ANKLE Dorsiflexion > WFL, contractures >WFL, contractures Plantarflexion 0-40 0-38* ?? Pt left laying supine in bed, Rashi intact, positioned with pillows, student nurse at bedside Pain: slight grimaces with ankle AAROM and R and L toe stretch. Pt laughing and counting along during remainder of stretching exercises Education: Mom not present for education this am. Educated student nurse of stretching techniques Staff Communication: Patient status, treatment, and mobility recommendations discussed with nursing/other staff. A: Pt tolerating gentle AAROM and stretching to all available extremities. Pt tolerated repositioning and demonstrated more active movement of R and L UE; following commands well. Pt turning head side to side and up and down, and actively squeezing therapist's hand with R UE upon command. Pt with playful demeanor; smiling and laughing. Pt will benefit from ongoing therapeutic interventions to achieve pt's and therapy goals Recommendations: Equipment needs at discharge: pt has all necessary equipment. Discharge Recommendations: home PT/OT services in addition to school services. Anticipate pt to d/chome with support and continued PT/OT/SENIOR FIELD ENGINEER/VNA services. Staff communication/Mobility Recommendations: Pt. Would benefit from PROM to (B) LEs and (B) UEs daily and positioning upright in chair for mealsdaily as able. Goals: To be achieved by 06/01/14: ?? Pt will tolerate repositioning pt in bed, w/c, and bedside chair to maintain skin integrity ?? Pt will tolerate gentle PROM and AAROM, stretching and massage. ?? Pt will self feed finger foods using L UE, and R UE for stabilization ?? Family to demonstrate understanding of positioning to decrease risk of skin breakdown, contractures, and loss of range of motion. Plan: Pt to be seen 3-5 per week for therapy including role of OT, positioning, gentle PROM and stretching, massage, recommendations and d/c planning. Eval date: 05/24/2014 Total time spent with patient: 45 minutes Total timed interventions: 45 minutes for TherEx Pager: [phone] Mary Joe OT Occupational Therapy Rehabilitation Department * MaguireDarius T - 05/30/2014 6:41 AM EST Neurosurgery - Inpatient Progress Note ID: Tana Shelton, 18 y.o. female s/p removal of retained hardware, washout of infection 05/20 POD 8 POD 4 Interval Hx: -ALEKSANDRA -Neurologically stable - Afebrile Objective: Medications: Scheduled Meds: ??? ciprofloxacin (CIPRO) oral liquid 250 mg Oral BID ??? vancomycin 1 g Intravenous Q8H ??? cefTAZidime (FORTAZ) 2g vial attach to sodium chloride 0.9% 50 mL Mini-Bag Plus 2 g [id number] ??? baclofen 10 mg Oral Nightly ??? levonorgestrel-ethinyl estradiol 1 tablet Oral Daily ??? polyethylene glycol 17 g Oral Daily ??? sodium chloride 0.9 % 5 mL Intravenous BID ??? docusate sodium 100 mg Oral BID ??? diaZEPam 5 mg Oral BID Continuous Infusions: ??? sodium chloride 0.9% with potassium chloride 20 mEq 50 mL/hr (05/29/14 1456) PRN Meds:acetaminophen OR acetaminophen, flu vaccine (36 mos+) (PF), HYDROmorphone, gadobutrol,heparin flush (PF), diphenhydrAMINE, metoclopramide, ondansetron, sodium chloride 0.9 %, lidocaine,bisacodyl, oxyCODONE Vitals: Temp: [36.8 ??C (98.2 ??F)-37.5 ??C (99.5 ??F)] Heart Rate: [89-132] Resp: [18-24] BP: (85-113)/(52-78) SpO2: [98 %-100 %] I/O: Intake/Output Summary (Last 24 hours) at 05/30/14 0641 Last data filed at 05/30/14 0410 Gross per 24 hour Intake 1647.9 ml Output 1830 ml Net -182.1 ml Labs: Recent Labs 05/29/14 0713 05/28/14 0900 WBC 6.6 7.6 HGB 11.4 11.3 PLATELET 330 341 Recent Labs 05/29/14 0713 05/28/14 0900 NA 142 139 K 3.9 3.9 CL 106 104 CO2 22 23 BUN 5* 4* CREATININE 0.31* 0.29* No results for input(s): PT, INR in the last 72 hours. Cx: pseudomonas, CONS Physical Exam: Awake, alert Says a few words appropriately to questions PERRL Does not comply with EOM exam No facial droop Spastic quadriparesis Small amount of drainage on lumbar dressing but none expressed from wound Assessment/Plan:: 18 y.o. female s/p removal of retained hardware, washout of infection 05/20. Neurologically stable. - Close neurological observation, q4 checks - On ceftazadime/vancomycin/ciprofloxacin - would clx with CONS + pseudomonas - PICC - Hold anticoagulation - GI PPx - ID c/s Associated attestation - Jamaal Samuel MD - 05/30/2014 9:02 AM EST Tana is stable. No fever. Eating OK. No BM. Wounds look good. Continue bowel meds for constipation. ID input for antibiotics. Has PICC. Work towards discharge home. * Isra Perez RN - 05/29/2014 3:36 PM EST Patient Name: Tana Shelton Patient Age: 18 y.o. Birthdate: 1995 Admit date: 05/20/2014 Attending Physician: Freddy Burciaga MD OFFICE OF CARE MANAGEMENT Farhana Perez RN Pager: [phone] CLINICAL PLATEMAKER PROGRESS NOTE e-DH reviewed. Report received from DEMI Hudson. Patient continues to require acute inpatient care for the treatment of removal of retained hardwares/p washout of infection. Patient continues on triple abx at this tome. VNA and [facility] are pending discharge. Plan: CRC will continue to follow for coordination of care and to facilitate discharge planning. * Mary Joe OT - 05/29/2014 12:22 PM EST Occupational Therapy Attempted to see pt 2x this am: mom requesting to let her sleep. Will follow up as pt becomes available. Please contact this news writer with any further questions or concerns. Thank you. Pager: [phone] Mary Joe, OTR/L Occupational Therapy Inpatient Rehabilitation * Natividad Esqueda, PT - 05/29/2014 9:11 AM EST Physical Therapy Treatment Note Visit #: 3 Patient Dx: Tana Shelton is a 18 y.o. 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 Patient with the following active problems: Patient Active Problem List Diagnosis Code ??? 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 Acquired dysplasia of hip, bilateral 736.39 ??? Edema leg 782.3 ??? Scoliosis 737.30 ??? Spasticity 781.0 ??? Presence of intrathecal baclofen pump V45.89 PMH: History reviewed. No pertinent past medical history. Social History: Patient lives with her family in a single story home in [place], [place]. Pt's mother reports that there is no stair requirement, and that she has all necessary equipment. Stairs: 0 without a rail to enter Baseline Mobility: Completely dependent for all care, home nursing VNA services 3x/week, school-based PT/OT/SENIOR FIELD ENGINEER, pt due to receive a communication device within the next week or so and has not yet had training on the device Equipment at home: pt's mother reports that she has all necessary equipment Precautions / Special Considerations: Full code; High risk for skin breakdown; At risk to fall; Keep SBP <160 Activity Orders: Activity as tolerated Staff communication/Mobility Recommendations: Pt. Would benefit from PROM to (B) LEs daily and positioning upright in chair for meals daily as able. Interval History: OR 05/26 for washout 2/2 active drainage from both lumbar and 2 flank incisions; CARMELLA drain over weekend post-operatively, removed 05/28 Subjective: pt very smiley today, counting with this news writer during stretching, showing off her favorite toys Objective: Patient seen for 55 mins for functional therapeutic exercise to address goals. Pt demonstrated the following: ?? Pt supine in bed upon arrival ?? Passive stretching provided to (B) LEs in the following muscle groups: ?? Gentle to HIPS: flexors, internal rotators, adductors ?? KNEES: extensors (HS) ?? ANKLES: dorsiflexors, invertors ?? LE PROM: RIGHT LEFT HIP Flexion WFL WFL Abduction 35* 40* Adduction WFL WFL KNEE Flexion WFL WFL Extension (-) 30* (-) 20* ANKLE Dorsiflexion > WFL >WFL Plantarflexion (-) 10* (-) 8* ?? Pt dependently transferred from bed to chair by her mother ?? Some noted discomfort upon initial positioning upright in wheelchair, pt calmed and comfortable following ~40 seconds upright in chair ?? At this time during session, MDs arrived for pt assessment and mom in agreement that she would like team to assess surgical site, so pt transferred back to bed dependently via her mother ?? Again, discomfort was expressed by pt upon initial transfer to bed, but resolved in <60 sec ?? Passive stretching provided to (B) UEs in the following muscle groups: ?? SHOULDERS: extensors, internal rotators, adductors ?? ELBOWS: flexors ?? UE PROM: RIGHT LEFT SHOULDER Flexion 150* 150* Extension WFL WFL Abduction 150* 150* Adduction WFL WFL Internal rotation WFL WFL External rotation 35* 35* ELBOW Flexion WFL WFL Extension (-) 20* (-) 15* WRIST Flexion WFL WFL Extension Limited; ~5* Limited; ~5* ?? Pt left resting comfortably in bed with rashi monitor secured, call fay in reach Vitals: Temperature Temp: 37.5 ??C (99.5 ??F) Heart Rate Heart Rate: 106 Blood Pressure BP: 96/65 mmHg Respiratory Rate Resp: 18 SpO2 SpO2: 99 % Pain: pt with minimal expression of discomfort with PROM / stretching to (B) ankles, otherwise did not demonstrate discomfort in today's session Education: Patient and her mother have been educated on Exercise, Positioning, Safety , Home program and Role of therapy and pt's mother verbalizes understanding. Assessment: Tana Shelton admitted for management of infected baclofen pump explantation site s/p washout. Pt much more alert and engaged in today's tx session compared to previous treatment session,and per mom's report is more herself today, although is sleepy. Pt in agreement that she feels better following PROM to (B) UEs and LEs and tolerated all PROM well, again with the exception of ankle ROM which is her baseline. Of note, discussed passive stretching of PIP of great toe into dorsiflexion to reduce joint paint / stiffness with pt's mother 2/2 pt c/o greatest discomfort with PROM in this direction. Mom noted that she has not been educated in ranging toes before, however had good understanding of and felt comfortable and competent integrating this PROM into home routine. Pt will benefit from ongoing therapeutic interventions to achieve therapy goals. Physical Therapy Goals: The following goals were updated today as appropriate. To be achieved by 05/29/14: 1. Maintain ROM in neck, trunk, and extremities. ONGOING 2. Assist pt in maintaining skin and joint integrity through positioning/splinting. ONGOING 3. Pt will participate in active/active assisted exercise to promote strength and ROM for functional mobility. ONGOING 4. Family to demonstrate understanding of positioning to decrease risk of skin breakdown, contractures, and loss of range of motion. ONGOING Plan: Pt to be seen 3-5 times per week for therapy including Bed mobility, Transfers, Exercise, Positioning and Home program. Patient agrees with plan as stated above. Initial Evaluation Date: 05/24/14 Discharge Recommendations: Patient would benefit from continued therapeutic interventions 2-3 timesa week as provided in a home environment to progress toward functional goals. No other consults recommended at this time Equipment needs: Patient has all necessary equipment. Total time spent with patient: 55 minutes Total timed interventions: 55 minutes for functional therapeutic exercise Natividad Esqueda, PT, DPT 05/29/2014 Pager: [phone] Physical Therapy Inpatient Rehabilitation Department * Wai Crabtree MD - 05/29/2014 8:36 AM EST Follow-up Inpatient ID Consult Note Active ID Issues: Surgical site infection with Pseudomonas and CoNS tracking down to CSF (dural tear) without clinical evidence of overt meningitis Antibiotics: Ceftazidime 2 gm IV Q8 hours (05/22-ongoing) Ciprofloxacin 250 mg PO TID (05/27-ongoing) Vancomycin 1 gm IV Q 8 hours (05/27 - ongoing) 24 hour events/Subjective: -05/26 back to OR, found to have purulent material at all 3 incision sites, s/p washout -Cipro added -Vancomycin resumed due to GPCs - CoNS -Afebrile, no leukocytosis -Mom reports that Tana seems very sleepy this morning, but has good appetite -Nursing report they are weaning pain meds Physical Exam: Last value Range last 48 hrs Temperature Temp: 37.5 ??C (99.5 ??F) Temp: [36.2 ??C (97.2 ??F)-37.6 ??C (99.7 ??F)] Heart Rate Heart Rate: 106 Heart Rate: [84-123] Blood Pressure BP: 96/65 mmHg BP: (87-111)/(52-77) Respiratory Rate Resp: 18 Resp: [17-26] SpO2 SpO2: 99 % SpO2: [98 %-100 %] General NAD Neuro Spasticity present with contractures of LE's Eyes No icterus, no injection Throat Mucous membranes moist. Skin Incision sites without some drainage under dressings but no erythema, tenderness, fluctuance Labs: WBC 6.6 Creatinine 0.31 Vancomycin trough 05/28 16.5 Microbiology: 05/20 Blood cultures - negative 05/20 Urine cultures - negative 05/20 Intraoperative Cultures - lumbar wound cultures #1, #2, baclofen pump tubing - Pseudomonas aeruginosa, escobar-sensitive 05/26 Intraoperative Cultures - posterior flank - NGTD Anterior flank - CoNS from broth culture Lumbar - GPCs on gram stain; Pseudomonas aeruginosa in culture SUSCEPTIBILITY RESULTS Pseudomonas aeruginosa PAT Interp Aztreonam S Ceftazidime S Ciprofloxacin S Gentamicin S Levofloxacin S Meropenem S Piperacillin/Tazobactam S Tobramycin S Imaging/Studies: 05/26 CT A/P - IMPRESSION: 1. 3.7 x 0.9 cm posterior subcutaneous air pocket with surrounding inflammatory changes overlying mid lumbar spinous processes without surrounding fluid. 2. No retained subcutaneous nor intra-abdominal foreign body fragment. Residual right anterior abdominal wall subcutaneous fluid collection measuring 6.2 x 1.1 x 2.4 cm with scant peripheral calcification may represent old hematoma/seroma at site of prior fragment retrieval. Impressions: 18 y.o. female with h/o TBI, spastic quadriplegia, admitted with a surgical site infection after removal of a baclofen pump on 05/11/14. She underwent washout with tubing removal on 05/20 where she wasfound to have a dural tear/CSF leak, which was repaired. Unfortunately, she had clinical deterioration with significant erythema and drainage from the surgical site prompting return to the operating room for further debridement on Thursday, 05/26. Cultures growing escobar- sensitive Pseudomonas and now Coagulase negative Staphylococcus from Thursday's procedure. Imaging has not demonstrated deeper infection s/a epidural abscess, etc. However, the Coagulase negative Staphylococcus complicates her antibiotic regimen. Awaiting final susceptibilities to formulate final regimen for home abx in attempts to find an easier dosing schedule (rather than 2 drugs which are both IV Q 8 hours as current). Recommendations: -Continue ceftazidime -Continue ciprofloxacin -Continue vancomycin with goal trough 15-20 -Will f/u susceptibilites of CoNS and adjust abx regimen pending results ID will continue to follow; please do not hesitate to page us on pager [phone] with further questions or concerns. Patient discussed with Dr. Wai Crabtree. Dimple Messina MD Fellow, Infectious Disease 05/29/2014 ID Staff: Discussed with Dr. Messina. Agree with current regimen. This will be a very difficult regimen at homeso some further discussion is needed. We are awaiting sensis on CoNS which may help us to narrow IVregimen. 15 minutes Brandin Crabtree MD * MaguireDarius T - 05/29/2014 6:48 AM EST Neurosurgery - Inpatient Progress Note ID: Tana Hayes Dirk, 18 y.o. female s/p removal of retained hardware, washout of infection 05/20 POD 7 POD 3 Interval Hx: -ALEKSANDRA -Neurologically stable - Afebrile Objective: Medications: Scheduled Meds: ??? ciprofloxacin (CIPRO) oral liquid 250 mg Oral BID ??? vancomycin 1 g Intravenous Q8H ??? cefTAZidime (FORTAZ) 2g vial attach to sodium chloride 0.9% 50 mL Mini-Bag Plus 2 g [id number] ??? baclofen 10 mg Oral Nightly ??? levonorgestrel-ethinyl estradiol 1 tablet Oral Daily ??? polyethylene glycol 17 g Oral Daily ??? sodium chloride 0.9 % 5 mL Intravenous BID ??? docusate sodium 100 mg Oral BID ??? diaZEPam 5 mg Oral BID Continuous Infusions: ??? sodium chloride 0.9% with potassium chloride 20 mEq 50 mL/hr (05/29/14 0624) PRN Meds:acetaminophen OR acetaminophen, flu vaccine (36 mos+) (PF), HYDROmorphone, gadobutrol,heparin flush (PF), diphenhydrAMINE, metoclopramide, ondansetron, sodium chloride 0.9 %, lidocaine,bisacodyl, oxyCODONE Vitals: Temp: [36.9 ??C (98.4 ??F)-37.4 ??C (99.3 ??F)] Heart Rate: [92-123] Resp: [17-26] BP: (87-111)/(52-72) SpO2: [98 %-100 %] I/O: Intake/Output Summary (Last 24 hours) at 05/29/14647 Last data filed at 05/29/14 06 Gross per 24 hour Intake 1543.7 ml Output 2194 ml Net -650.3 ml Labs: Recent Labs 05/28/14 0900 05/27/14 0530 WBC 7.6 6.8 HGB 11.3 10.5* PLATELET 341 321 Recent Labs 05/28/14 0900 05/27/14 0530 NA 139 137 K 3.9 3.9 CL 104 104 CO2 23 22 BUN 4* 4* CREATININE 0.29* 0.21* No results for input(s): PT, INR in the last 72 hours. Cx: pseudomonas Physical Exam: Awake, alert Says a few words appropriately to questions PERRL Does not comply with EOM exam No facial droop Spastic quadriparesis Small amount of drainage on lumbar dressing but none expressed from wound Assessment/Plan:: 18 y.o. female s/p removal of retained hardware, washout of infection 05/20. Neurologically stable. - Close neurological observation, q4 checks - On ceftazadime/vancomycin/ciprofloxacin - would clx with GPC + pseudomonas - PICC - Hold anticoagulation - GI PPx - ID c/s Associated attestation - Jamaal Samuel MD - 05/29/2014 4:27 PM EST I have seen and examined the patient, providing foster components as outlined below. I have reviewed the resident???s above note; my evaluation of the patient is below: Tana presents with wound infection of lumbar wound but not of flank wound. She required washout three days ago. Afebrile and WBC normal. Wound healing, no purulence at this time. No evidence of meningitis. Continue antibiotics. Awaiting final sensitivies for ID to make recommendations of antibiotics. Plan D/C home with PICC antibiotics. Continue PT/OT here. Pain is well controlled at this time. * Darius Maguire - 05/28/2014 7:52 AM EST Neurosurgery - Inpatient Progress Note ID: Tana Shelton, 18 y.o. female s/p removal of retained hardware, washout of infection 05/20 POD 6 POD 2 Interval Hx: -ALEKSANDRA -Neurologically stable Objective: Medications: Scheduled Meds: ??? ciprofloxacin (CIPRO) oral liquid 250 mg Oral BID ??? vancomycin 1 g Intravenous Q8H And ??? Vancomycin Level - MAR Order Reminder NOT APPLICABLE Once ??? cefTAZidime (FORTAZ) 2g vial attach to sodium chloride 0.9% 50 mL Mini-Bag Plus 2 g [id number] ??? baclofen 10 mg Oral Nightly ??? levonorgestrel-ethinyl estradiol 1 tablet Oral Daily ??? polyethylene glycol 17 g Oral Daily ??? sodium chloride 0.9 % 5 mL Intravenous BID ??? docusate sodium 100 mg Oral BID ??? diaZEPam 5 mg Oral BID Continuous Infusions: ??? sodium chloride 0.9% with potassium chloride 20 mEq 50 mL/hr (05/28/14221) PRN Meds:acetaminophen OR acetaminophen, flu vaccine (36 mos+) (PF), HYDROmorphone, gadobutrol,heparin flush (PF), diphenhydrAMINE, metoclopramide, ondansetron, sodium chloride 0.9 %, lidocaine,bisacodyl, oxyCODONE Vitals: Temp: [36.2 ??C (97.2 ??F)-37.6 ??C (99.7 ??F)] Heart Rate: [84-122] Resp: [18-24] BP: (91-106)/(56-77) SpO2: [98 %-99 %] I/O: Intake/Output Summary (Last 24 hours) at 05/28/14 0752 Last data filed at 05/28/14 0416 Gross per 24 hour Intake 2067.53 ml Output 1461 ml Net 606.53 ml Labs: Recent Labs 05/27/14 0530 05/26/14414 WBC 6.8 7.4 HGB 10.5* 10.8* PLATELET 321 378* Recent Labs 05/27/14 0530 05/26/14414 NA 137 138 K 3.9 3.8 CL 104 104 CO2 22 23 BUN 4* 6* CREATININE 0.21* 0.28* No results for input(s): PT, INR in the last 72 hours. Cx: pseudomonas Physical Exam: Awake, alert Says a few words appropriately to questions PERRL Does not comply with EOM exam No facial droop Spastic quadriparesis Dressing clean and dry Wound without fluctuance CARMELLA 5cc Assessment/Plan:: 18 y.o. female s/p removal of retained hardware, washout of infection 05/20. Neurologically stable. - Close neurological observation, q4 checks - On ceftazadime/vancomycin/ciprofloxacin - would clx with GPC + GNR - PICC placement today - Hold anticoagulation - GI PPx - ID c/s * Gretchen Camargo RN - 05/27/2014 4:34 PM EST Patient Name: Tana Shelton Patient Age: 18 y.o. Birthdate: 1995 Admit date: 05/20/2014 Attending Physician: Freddy Burciaga MD Spoke with Gabriela direct care RN. There is no definitive discharge date at this time per team. CRC received call from EUNICE Hair, from [place], [place] or Asking for status as they will follow her after discharge for IV antibiotic treatment. She will need an OPAT order faxed to above agency when she is ready for discharge as well as administration teaching for home. When ready for discharge, [facility] PHONE: [phone] FAX: [phone] will also need to be updated. Referral had been made by previous CRC. Covering pager #[phone] for pager #[phone]. * Darius Maguire T - 05/27/2014 8:23 AM EST Neurosurgery - Inpatient Progress Note ID: Tana Shelton, 18 y.o. female s/p removal of retained hardware, washout of infection 05/20 POD 5 POD 1 Interval Hx: -ALEKSANDRA -Neurologically stable Objective: Medications: Scheduled Meds: ??? bolus IV fluid Intravenous Once ??? vancomycin 1 g Intravenous Q12H ??? ciprofloxacin (CIPRO) oral liquid 250 mg Oral BID ??? cefTAZidime (FORTAZ) 2g vial attach to sodium chloride 0.9% 50 mL Mini-Bag Plus 2 g [id number] ??? baclofen 10 mg Oral Nightly ??? levonorgestrel-ethinyl estradiol 1 tablet Oral Daily ??? polyethylene glycol 17 g Oral Daily ??? sodium chloride 0.9 % 5 mL Intravenous BID ??? docusate sodium 100 mg Oral BID ??? diaZEPam 5 mg Oral BID Continuous Infusions: ??? sodium chloride 0.9% with potassium chloride 20 mEq 50 mL/hr (05/26/14 1818) PRN Meds:vancomycin AND Vancomycin, trough AND Vancomycin Level - MAR Order Reminder, acetaminophen OR acetaminophen, flu vaccine (36 mos+) (PF), HYDROmorphone, gadobutrol, heparin flush (PF), diphenhydrAMINE, metoclopramide, ondansetron, sodium chloride 0.9 %, lidocaine, bisacodyl, oxyCODONE Vitals: Temp: [36.5 ??C (97.7 ??F)-37.6 ??C (99.7 ??F)] Heart Rate: [88-121] Resp: [14-28] BP: (82-109)/(46-75) SpO2: [95 %-100 %] I/O: Intake/Output Summary (Last 24 hours) at 05/27/14 0823 Last data filed at 05/27/14 0545 Gross per 24 hour Intake 1730 ml Output 1131 ml Net 599 ml Labs: Recent Labs 05/27/14 0530 05/26/14 0415 05/25/14 0500 WBC 6.8 7.4 7.1 HGB 10.5* 10.8* 11.3 PLATELET 321 378* 358 Recent Labs 05/27/14 0530 05/26/14 0415 05/25/14 0500 NA 137 138 140 K 3.9 3.8 4.0 CL 104 104 105 CO2 22 23 23 BUN 4* 6* 6* CREATININE 0.21* 0.28* 0.27* No results for input(s): PT, INR in the last 72 hours. Cx: pseudomonas Physical Exam: Awake, alert Says a few words appropriately to questions PERRL Does not comply with EOM exam No facial droop Spastic quadriparesis Dressing clean and dry Wound without fluctuance [address] Assessment/Plan:: 18 y.o. female s/p removal of retained hardware, washout of infection 05/20. Neurologically stable. - Close neurological observation, q4 checks - On ceftazadime/vancomycin/ciprofloxacin - PICC placement today - Hold anticoagulation - GI PPx - ID c/s * Wai Crabtree MD - 05/26/2014 6:46 PM EST ID Staff: Brief note Pt seen and examined. More pronounced wound drainage over right flank. Also continue drainage and erythema of lumbar wound. Dr. Burciaga is planning further exploration in OR and CT has been requested to r/o ongoing FB in right flank. Agree with surgical exploration. Would continue Ceftaz alone pre-op but consider addition of Vanco and Cipro (with ceftaz) pending OR gram stains. ID will f/u cultures over the weekend. 25' M.MKaren Muhammad MD * Natividad Esqueda, PT - 05/26/2014 10:56 AM EST Physical Therapy Treatment Note Visit #: 2 Patient Dx: Tana Shelton is a 18 y.o. 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 Patient with the following active problems: Patient Active Problem List Diagnosis Code ??? 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 Acquired dysplasia of hip, bilateral 736.39 ??? Edema leg 782.3 ??? Scoliosis 737.30 ??? Spasticity 781.0 ??? Presence of intrathecal baclofen pump V45.89 PMH: History reviewed. No pertinent past medical history. Social History: Patient lives with her family in a single story home in [place], [place]. Pt's mother reports that there is no stair requirement, and that she has all necessary equipment. Stairs: 0 without a rail to enter Baseline Mobility: Completely dependent for all care, home nursing VNA services 3x/week, school-based PT/OT/SENIOR FIELD ENGINEER, pt due to receive a communication device within the next week or so and has not yet had training on the device Equipment at home: pt's mother reports that she has all necessary equipment Precautions / Special Considerations: Full code; High risk for skin breakdown; At risk to fall; Keep SBP <160 Activity Orders: Activity as tolerated Staff communication/Mobility Recommendations: Pt. Would benefit from PROM to (B) LEs daily and positioning upright in chair for meals daily as able. Subjective: no verbal subjective today, pt was tearful regarding potential need for OR today at beginning of session, was otherwise social throughout session Objective: Patient seen for 37 mins for functional therapeutic exercise to address goals. Pt demonstrated the following: ?? Pt supine in bed upon arrival ?? Passive stretching provided to (B) LEs in the following muscle groups: ?? Gentle to HIPS: flexors, internal rotators, adductors ?? KNEES: extensors (HS) ?? ANKLES: dorsiflexors, invertors ?? PROM: RIGHT LEFT HIP Flexion WFL WFL Abduction 35* 40* Adduction WFL WFL KNEE Flexion WFL WFL Extension (-) 30* (-) 20* ANKLE Dorsiflexion > WFL >WFL Plantarflexion (-) 10* (-) 8* ?? Pt left resting comfortably in bed with rashi monitor secured, call fya in reach Vitals: Temperature Temp: 36.2 ??C (97.2 ??F) Heart Rate Heart Rate: 100 Blood Pressure BP: 92/50 mmHg Respiratory Rate Resp: 22 SpO2 SpO2: 98 % Pain: pt with minimal expression of discomfort with PROM / stretching to (B) ankles, otherwise did not demonstrate discomfort in today's session Education: Patient and her mother have been educated on Exercise, Positioning, Safety , Home program and Role of therapy and pt's mother verbalizes understanding. Assessment: Tana Shelton admitted for management of infected baclofen pump explantation site s/p washout. Pt in agreement to participate in PT tx session despite being upset regarding potential needto return to OR today. Pt tolerated PROM and stretching to (B) LEs well, and did not demonstrate discomfort with PROM in hips or knees, however consistently demonstrates dislike for ankle PROM and stretching. Pt encouraged to ambulate frequently with staff, getting into the bathroom for toileting and walking out in the [place] as able. Pt will benefit from ongoing therapeutic interventions to achieve therapy goals. Physical Therapy Goals: To be achieved by 05/29/14: 1. Maintain ROM in neck, trunk, and extremities. 2. Assist pt in maintaining skin and joint integrity through positioning/splinting. 3. Pt will participate in active/active assisted exercise to promote strength and ROM for functional mobility 4. Family to demonstrate understanding of positioning to decrease risk of skin breakdown, contractures, and loss of range of motion. Plan: PT services to resume Thursday, pt's mother plans to perform PROM to (B) LEs over weekend and in agreement with plan. Pt to be seen 3-5 times per week for therapy including Bed mobility, Transfers, Exercise, Positioning and Home program. Patient agrees with plan as stated above. Initial Evaluation Date: 05/24/14 Discharge Recommendations: Patient would benefit from continued therapeutic interventions 2-3 timesa week as provided in a home environment to progress toward functional goals. No other consults recommended at this time Equipment needs: Patient has all necessary equipment. Total time spent with patient: 37 minutes Total timed interventions: 37 minutes for functional therapeutic exercise Natividad J Cavagnaro, PT, DPT 05/26/2014 Pager: [phone] Physical Therapy Inpatient Rehabilitation Department * Freddy Burciaga MD - 05/26/2014 6:27 AM EST Neurosurgery - Inpatient Progress Note ID: Tana Shelton, 18 y.o. female s/p removal of retained hardware, washout of infection 05/20 POD 6 Interval Hx: -ALEKSANDRA -Neurologically stable Objective: Medications: Scheduled Meds: ??? cefTAZidime (FORTAZ) 2g vial attach to sodium chloride 0.9% 50 mL Mini-Bag Plus 2 g [id number] ??? baclofen 10 mg Oral Nightly ??? levonorgestrel-ethinyl estradiol 1 tablet Oral Daily ??? polyethylene glycol 17 g Oral Daily ??? sodium chloride 0.9 % 5 mL Intravenous BID ??? docusate sodium 100 mg Oral BID ??? acetaminophen 15 mg/kg/dose Oral Q6H ??? diaZEPam 5 mg Oral BID Continuous Infusions: ??? sodium chloride 0.9% with potassium chloride 20 mEq 50 mL/hr (05/25/14 1628) PRN Meds:gadobutrol, heparin flush (PF), diphenhydrAMINE, metoclopramide, ondansetron, sodium chloride 0.9 %, lidocaine, bisacodyl, oxyCODONE Vitals: Temp: [36.3 ??C (97.3 ??F)-37.8 ??C (100 ??F)] Heart Rate: [101-141] Resp: [19-24] BP: (90-113)/(54-71) SpO2: [97 %-99 %] I/O: Intake/Output Summary (Last 24 hours) at 05/26/14 0628 Last data filed at 05/26/14 0400 Gross per 24 hour Intake 1073.93 ml Output 274 ml Net 799.93 ml Labs: Recent Labs 05/26/14 0415 05/25/14 0500 05/24/14 1242 WBC 7.4 7.1 7.0 HGB 10.8* 11.3 13.0 PLATELET 378* 358 389* Recent Labs 05/26/14 0415 05/25/14 0500 05/24/14 1242 NA 138 140 142 K 3.8 4.0 4.0 CL 104 105 103 CO2 23 23 25 BUN 6* 6* 4* CREATININE 0.28* 0.27* 0.39* No results for input(s): PT, INR in the last 72 hours. Cx: pseudomonas Physical Exam: Awake, alert Says a few words appropriately to questions PERRL Does not comply with EOM exam No facial droop Spastic quadriparesis Dressing clean and dry Wound without fluctuance Assessment/Plan:: 18 y.o. female s/p removal of retained hardware, washout of infection 05/20. Neurologically stable. - Close neurological observation, q4 checks - On ceftazadime - PICC placed - Hold anticoagulation - GI PPx - ID c/s Neurosurgery Attending addendum: I have seen and independently examined the above patient. I have reviewed the resident's history, physical exam, and impressions. I agree with the above, with the following additions/amendments: Purulent drainage on dressing with madonna-incisional tenderness. Non-toxic appearing, supple neck, baseline neurologic status per mother (except that she looks tired). Given appearance of dressing would favor aggressive management with repeat washout, re-inspection for CSF leakage, possible placement of drain. Discussed with mother who agrees. Travis Burciaga MD Neurosurgery * Natividad Esqueda, PT - 05/25/2014 4:50 PM EST Physical Therapy Note Pt unavailable for participation in PT treatment session today secondary to pt scheduled for MRI 5 minutes following first attempt and undergoing PICC placement on second attempt. Discussed plan to follow up to re-attempt tomorrow (05/26) or when appropriate. Please page this news writer if you have any questions, thank you. Natividad Esqueda PT Pager #[phone] Physical Therapy Inpatient Rehabilitation * Mary Joe, OT - 05/25/2014 2:30 PM EST Occupational Therapy Treatment Note Visit #: 2 Patient Dx: Tana Shelton is a 18 y.o. 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 Apparently, she had the baclofen pump placed in 2007, but it hadn't been working so it was removed on 05/11/14. She went home after that procedure but then developed fevers with erythema around the incision site as well as drainage from the incision. She was subsequently admitted on 05/20 and taken tothe OR for washout of the site (by Dr. Burciaga). During the procedure, she was noted to have a CSF leak, so the remaining tubing was removed and everything was closed. (per chart review, Dr. Crabtree 05/23/14. OT consult received 05/24/14 for initial evaluation. Pt planned to go for PICC at 3pm today Precautions/Special Considerations: fall risk; high risk for skin breakdown; Keep SBP <160; joint contractures Activity Order: activity as tolerated Code Status: full code Interval History: no acute events; Remains afebrile with normal WBC count. Having difficulty with IV access. S: singing ABC. 1, 2, 3, 1, 1, 1 (+laughing and smiling, 'tricking' therapist with her counting) O: Patient seen for therapeutic activities and demonstrated the following: ?? Pt laughing, smiling, alert and engaged during treatment this afternoon. Pt enjoys singing alongto Spongebob, ABCs and counting with performing gentle AAROM exercises. ?? Pt tolerated gentle AAROM and stretching to BUEs: ?? L UE ROM: ?? Pt achieving almost full ROM with shoulder flexion, pt lifting arm overhead independently upon cues, ~165*AROM ?? Pt with limited elbow extension 2/2 contractures. Full elbow flexion AAROM ?? Pt with neutral wrist, very limited wrist extension, full AAROM with wrist flexion ?? Able to fully range L fingers; pt initiating palmar grasp when cued 'squeeze my hand.' 3+/5 gripstrength ?? R UE ROM: ?? Significant contractures in R shoulder, impaired shoulder flexion ~30-40*AAROM ?? Pt with limited elbow extension 2/2 contractures. Full elbow flexion AAROM ?? Pt with neutral wrist, very limited wrist extension, full AAROM with wrist flexion ?? Able to fully range R fingers; unable to initiate palmar grasp, despite numbers verbal and tactile cues. ?? Pt tolerated B LE gentle stretching and AAROM, to all available joints ?? Pt left laying supine in bed, positioned in midline with pillows. Mom at bedside. Pain: slight grimaces with ankle AAROM and hamstring stretch. Pt laughing and counting along duringremainder of stretching exercises Education: Pt/family education ongoing. Mom present for education at beginning and end of treatmentsession Staff Communication: Patient status, treatment, and mobility recommendations discussed with nursing/other staff. A: Pt tolerating gentle AAROM and stretching to all available extremities. Pt tolerated repositioning and demonstrated more active movement of L UE; following commands well. Pt with pleasant demeanor; smiling and laughing. Pt will benefit from ongoing therapeutic interventions to achieve pt's and therapy goals Recommendations: Equipment needs at discharge: pt has all necessary equipment. Discharge Recommendations: home PT/OT services in addition to school services. Anticipate pt to d/chome with support and continued PT/OT/SENIOR FIELD ENGINEER/VNA services. Spoke to CRC this am about thoracic brace re-fitting consult. And home OT/PT services upon d/c. Staff communication/Mobility Recommendations: Pt. Would benefit from PROM to (B) LEs and (B) UEs daily and positioning upright in chair for mealsdaily as able. Goals: To be achieved by 06/01/14: ?? Pt will tolerate repositioning pt in bed, w/c, and bedside chair to maintain skin integrity ?? Pt will tolerate gentle PROM and AAROM, stretching and massage. ?? Pt will self feed finger foods using L UE, and R UE for stabilization ?? Family to demonstrate understanding of positioning to decrease risk of skin breakdown, contractures, and loss of range of motion. Plan: Pt to be seen 3-5 per week for therapy including role of OT, positioning, gentle PROM and stretching, massage, recommendations and d/c planning. Eval date: 05/24/2014 Total time spent with patient: 30 minutes Total timed interventions: 27 minutes for TherEx Pager: [phone] Mary Joe OT Occupational Therapy Rehabilitation Department * Page Torres - 05/25/2014 2:19 PM EST Nutrition Services - Initial Note Tana Shelton : 1995 AGE: 18 y.o. Patient Active Problem List Diagnosis Date Noted ??? Presence of intrathecal baclofen pump 02/28/2014 ??? Spasticity 07/20/2013 ??? Scoliosis 11/07/2010 ??? Edema leg 11/04/2010 ??? Acquired dysplasia of hip, bilateral 08/16/2010 ??? 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 04/27/1995 Reason for Nutrition Intervention: Patient Admitted to ICU Diet Order: Regular Appetite: very good per mother Food allergies: NKFA Chewing/Swallowing difficulty: not addressed Height: 154.9 cm (05/11/14) Weight: 47.6 kg Body mass index is 19.85 kg/(m^2). Assessment: Patient's mother at bedside, says that she has been eating very well and that the food has been good. No difficulties ordering from room service, no questions or concerns at this time. Nutrition Plan: Regular diet. Recommend Daily Multi Vitamins. Monitor weight. Encourage good po intake. Support and encouragement provided. Nutrition services to follow weekly thru hospital course unless consulted in the interim. ALEJANDRO Forman * Scott Gómez MD - 05/25/2014 6:21 AM EST Neurosurgery - Inpatient Progress Note ID: Tana Shelton, 18 y.o. female s/p removal of retained hardware, washout of infection 05/20 POD 5 Interval Hx: -ALEKSANDRA -Neurologically stable Objective: Medications: Scheduled Meds: ??? cefTAZidime (FORTAZ) 2g vial attach to sodium chloride 0.9% 50 mL Mini-Bag Plus 2 g [id number] ??? baclofen 10 mg Oral Nightly ??? levonorgestrel-ethinyl estradiol 1 tablet Oral Daily ??? polyethylene glycol 17 g Oral Daily ??? sodium chloride 0.9 % 5 mL Intravenous BID ??? docusate sodium 100 mg Oral BID ??? acetaminophen 15 mg/kg/dose Oral Q6H ??? diaZEPam 5 mg Oral BID Continuous Infusions: ??? sodium chloride 0.9% with potassium chloride 20 mEq 50 mL/hr (05/24/142144) PRN Meds:diphenhydrAMINE, acetaminophen, metoclopramide, ondansetron, sodium chloride 0.9 %, lidocaine, bisacodyl, HYDROmorphone, oxyCODONE Vitals: Temp: [37 ??C (98.6 ??F)-37.7 ??C (99.9 ??F)] Heart Rate: [97-138] Resp: [18-24] BP: (83-96)/(51-61) SpO2: [95 %-100 %] I/O: Intake/Output Summary (Last 24 hours) at 05/25/14 0621 Last data filed at 05/25/14 0400 Gross per 24 hour Intake 1478 ml Output 1080 ml Net 398 ml Labs: Recent Labs 05/25/14 0500 05/24/14 1242 WBC 7.1 7.0 HGB 11.3 13.0 PLATELET 358 389* Recent Labs 05/25/14 0500 05/24/14 1242 05/23/14 0030 05/22/14 1245 NA 140 142 141 < > 142 K 4.0 4.0 3.9 < > 3.6 CL 105 103 107 < > 104 CO2 23 25 21* < > 24 BUN 6* 4* -- -- 2* CREATININE 0.27* 0.39* -- -- 0.31* < > = values in this interval not displayed. No results for input(s): PT, INR in the last 72 hours. Cx: pseudomonas Physical Exam: Awake, alert Says a few words appropriately to questions PERRL Does not comply with EOM exam No facial droop Spastic quadriparesis Dressing clean and dry Wound without fluctuance Assessment/Plan:: 18 y.o. female s/p removal of retained hardware, washout of infection 05/20. Neurologically stable. - Close neurological observation, q4 checks - On ceftazadime - PICC placement today - Hold anticoagulation - GI PPx - ID c/s * Wai Crabtree MD - 05/24/2014 5:00 PM EST Follow-up Inpatient ID Consult Note Active ID Issues: Surgical site infection - Pseudomonas Antibiotics: Ceftazidime 24 hour events/Subjective: Remains afebrile with normal WBC count. Having difficulty with IV access. Physical Exam: Last value Range last 48 hrs Temperature Temp: 37.6 ??C (99.7 ??F) Temp: [37 ??C (98.6 ??F)-37.9 ??C (100.2 ??F)] Heart Rate Heart Rate: 118 Heart Rate: [102-134] Blood Pressure BP: 96/61 mmHg BP: (85-113)/(50-67) Respiratory Rate Resp: 18 Resp: [18-22] SpO2 SpO2: 100 % SpO2: [95 %-100 %] General NAD Neuro Spasticity present with contractures of LE's Eyes No icterus, no injection Throat Mucous membranes moist. Skin Incision sites mostly improved - still some erythema around lumbar incision site but improved since yesterday. Labs: WBC 7 Creatinine 0.39 Micro: Blood cultures: 05/20 - NGTD Urine cultures: 05/20 - neg OR lumbar wound cultures #1: 05/20 - Pseudomonas #2: 05/20 - Pseudomonas Pump tubin/24 - Pseudomonas SUSCEPTIBILITY RESULTS Pseudomonas aeruginosa PAT Interp Aztreonam S Ceftazidime S Ciprofloxacin S Gentamicin S Levofloxacin S Meropenem S Piperacillin/Tazobactam S Tobramycin S Impressions: 18 y.o. female with h/o TBI with spastic quadriplegia who is admitted with a surgical site infection after removal of a baclofen pump on 05/11/14. She had a washout with tubing removal on 05/20 with closure of the wound. However, there is significant erythema and drainage from the surgical site, and with the CSF leak that was appreciated during surgery, we should strongly consider that the CSF may be infected even though she is not showing clinical signs of meningitis. Cultures all growing escobar-sensitive Pseudomonas. Also question of whether or not she may have an epidural abscess beyond the surgical exploration. Recommendations: 1 - Would continue Ceftazidime for now 2 - Ok to place PICC 3 - MRI being discussed Further recs pending above discussions. Patient seen and discussed with Dr. Crabtree. Nely Boss MD Infectious Disease Fellow Internal Medicine/Pediatrics ID Staff: I saw the patient with Dr. Boss. The back and flank wounds are improving. Recommend d/c vanco and continue ceftazidime only. MRI spine may help us to transition earlier to oral cipro. Discussed with Pedi Neurosurgery associate provider. 25' MArleth Crabtree MD * Farhana Perez-Emile Hayes RN - 05/24/2014 1:46 PM EST Patient Name: Tana Shelton Patient Age: 18 y.o. Birthdate: 1995 Admit date: 05/20/2014 Attending Physician: Freddy Burciaga MD Office of Care Management Farhana Perez RN Pager: [phone] Clinical Product Managent Intern Home IV Antibiotic Therapy Referral Note. Report received from NeuroSurgery Team that patient will require continued home IV antibiotic therapy after discharge from the hospital. Met with patient/family to discuss vendor and visiting nurse choices for home IV antibiotic therapy. Reviewed Home Infusion Vendors and Home Health Agencies that serve patient???s address and accept patient???s insurance. Home Health Agency: Patient requested referral to [facility] [employer]. PHONE: [phone] FAX: [phone]. Referrals sent via edischarge. Home Infusion Vendor: Patient requested referral to [place], [place] Tel: or Fax: . Referrals sent via edischarge. Diabetic Status: Patient is not a diabetic. IV access: Type of line: Patient will have PICC place 05/25/14 * Scott Gómez MD - 05/24/2014 6:28 AM EST Neurosurgery - Inpatient Progress Note ID: Tana Shelton, 18 y.o. female s/p removal of retained hardware, washout of infection 05/20 POD 4 Interval Hx: -ALEKSANDRA -Neurologically stable Objective: Medications: Scheduled Meds: ??? Vancomycin Level - MAR Order Reminder NOT APPLICABLE Once And ??? vancomycin 1 g Intravenous Q8H ??? cefTAZidime (FORTAZ) 2g vial attach to sodium chloride 0.9% 50 mL Mini-Bag Plus 2 g [id number] ??? baclofen 10 mg Oral Nightly ??? levonorgestrel-ethinyl estradiol 1 tablet Oral Daily ??? polyethylene glycol 17 g Oral Daily ??? sodium chloride 0.9 % 5 mL Intravenous BID ??? docusate sodium 100 mg Oral BID ??? acetaminophen 15 mg/kg/dose Oral Q6H ??? diaZEPam 5 mg Oral BID Continuous Infusions: ??? sodium chloride 0.9% with potassium chloride 20 mEq 50 mL/hr (05/23/14 1852) PRN Meds:diphenhydrAMINE, acetaminophen, metoclopramide, ondansetron, sodium chloride 0.9 %, lidocaine, bisacodyl, HYDROmorphone, oxyCODONE Vitals: Temp: [37 ??C (98.6 ??F)-37.6 ??C (99.7 ??F)] Heart Rate: [102-131] Resp: [20-22] BP: (90-113)/(50-67) SpO2: [96 %-100 %] I/O: Intake/Output Summary (Last 24 hours) at 05/24/14 0628 Last data filed at 05/24/14 0218 Gross per 24 hour Intake 2558 ml Output 1325 ml Net 1233 ml Labs: Recent Labs 05/22/14 0610 WBC 7.7 HGB 11.6 PLATELET 342 Recent Labs 05/23/14 0030 05/22/14 1820 05/22/14 1245 05/22/14 0610 NA 141 141 142 141 K 3.9 4.0 3.6 2.9* CL 107 103 104 104 CO2 21* 22 24 21* BUN -- -- 2* 3* CREATININE -- -- 0.31* 0.27* No results for input(s): PT, INR in the last 72 hours. Cx: pseudomonas Physical Exam: Awake, alert Says a few words appropriately to questions PERRL Does not comply with EOM exam No facial droop Spastic quadriparesis Dressing clean and dry Wound without fluctuance Assessment/Plan:: 18 y.o. female s/p removal of retained hardware, washout of infection 05/20. Neurologically stable. - Close neurological observation, q4 checks - Vanc, ceftazadime per ID - Final cx pending - SBP <160 - Hold anticoagulation - GI PPx - ID c/s * Scott Gómez MD - 05/23/2014 6:27 AM EST Neurosurgery - Inpatient Progress Note ID: Tana Shelton, 18 y.o. female s/p removal of retained hardware, washout of infection 05/20 POD 3 Interval Hx: -ALEKSANDRA -Neurologically stable Objective: Medications: Scheduled Meds: ??? piperacillin-tazobactam 3.375 g Intravenous Q6H ??? cefTAZidime (FORTAZ) 2g vial attach to sodium chloride 0.9% 50 mL Mini-Bag Plus 2 g [id number] ??? baclofen 10 mg Oral Nightly ??? levonorgestrel-ethinyl estradiol 1 tablet Oral Daily ??? polyethylene glycol 17 g Oral Daily ??? sodium chloride 0.9 % 5 mL Intravenous BID ??? docusate sodium 100 mg Oral BID ??? acetaminophen 15 mg/kg/dose Oral Q6H ??? diaZEPam 5 mg Oral BID Continuous Infusions: ??? sodium chloride 0.9% with potassium chloride 40 mEq 50 mL/hr (05/22/14 1216) PRN Meds:acetaminophen, metoclopramide, ondansetron, sodium chloride 0.9 %, lidocaine, bisacodyl, HYDROmorphone, oxyCODONE Vitals: Temp: [36.8 ??C (98.2 ??F)-38.6 ??C (101.5 ??F)] Heart Rate: [96-153] Resp: [16-20] BP: (92-105)/(59-71) SpO2: [97 %-99 %] I/O: Intake/Output Summary (Last 24 hours) at 05/23/14 06 Last data filed at 05/23/14 0500 Gross per 24 hour Intake 2231.5 ml Output 1888 ml Net 343.5 ml Labs: Recent Labs 05/22/14 0610 05/21/14 0423 05/20/14 1715 WBC 7.7 11.2* 8.4 HGB 11.6 12.8 14.0 PLATELET 342 362 405* Recent Labs 05/23/14 0030 05/22/14 1820 05/22/14 1245 05/22/14 0610 05/21/14 0423 NA 141 141 142 141 138 K 3.9 4.0 3.6 2.9* 4.0 CL 107 103 104 104 106 CO2 21* 22 24 21* 19* BUN -- -- 2* 3* 3* CREATININE -- -- 0.31* 0.27* 0.30* No results for input(s): PT, INR in the last 72 hours. Cx: Rare pseudomonas Physical Exam: Awake, alert Says a few words appropriately to questions PERRL Does not comply with EOM exam No facial droop Spastic quadriparesis Dressing clean and dry Wound without fluctuance Assessment/Plan:: 18 y.o. female s/p removal of retained hardware, washout of infection 05/20. Neurologically stable. - Close neurological observation, q4 checks - Triple Abx - SBP <160 - Hold anticoagulation - GI PPx - ID c/s Lesly Brooks RN - 05/22/2014 1:07 PM EST Office of Care Management Clinical Product Managent Intern Patient Name: Tana Shelton : 1995, 18 yrs Admission Date: 05/20/2014 8:13 PM Attending: Freddy Burciaga MD Order to Admit: pending signature Discussed patient with Provider Team and in multidisciplinary discharge-planning rounds. Reviewed record and interviewed patient. Introduced/reviewed CRC role and services accepted. REASON for HOSPITALIZATION: s/p removal of retained hardware, washout of infection 05/20 PMH: Refer to H&P for details PREVIOUS FUNCTIONAL STATUS: dependent for all care CURRENT FUNCTIONAL STATUS: dependent with all care SOCIAL / FAMILY SUPPORTS: lives with parents. Totally dependent. No stairs. Mother feels has all DME needed to care for pt. VNA sees 3x/wk for bath and RN follows. ADVANCE DIRECTIVES: On File (), Requested Copy(), None on File (x) HEALTH /PRESCRIPTION COVERAGE: [facility] CURRENT HOME/COMMUNITY SERVICES/EQUIPMENT: DME: [facility] bed, wheelchair, tomasa lift, shower chair. Home Health Agency: [facility] PRIMARY CARE PHYSICIAN: NAINA LINDSEY MD [phone] POTENTIAL DISCHARGE NEEDS: Resume vna visits. Mother stated that she has [facility] vna - RN and Aide currently. Waiting to confirm this and pt needs. Might need home IV antibx. TRANSPORTATION @ D/C: family PLAN: CRC will continue to monitor progress, follow for continuity of care and assist with discharge planning while hospitalized Lesly Jesus RN Office of Care Management Clinical Product Managent Intern Covering for Farhana Chris [phone] Pager [phone] * Yandy Dasilva, PharmD - 05/22/2014 9:46 AM EST Clinical Pharmacist Note-Vanc Tana Barlowrd [id number] 1995 Tana Barlowrd is a 18 y.o. female is being monitored due to antibiotic therapy which includes intravenous vancomycin. Regimen: Vancomycin 1000 mg every 12 hours Indication: treatment of an Intrathecal Pump infection Initiation Date:05/20/2014 Day of Therapy:3 Targeted Goal Range: 15 - 20 mcg/mL Pharmacokinetic information: Wt Readings from Last 1 Encounters: 05/21/14 47.628 kg (105 lb) Ht Readings from Last 1 Encounters: 05/11/14 154.9 cm (5' 0.98) Labs: Vancomycin: Vanc Trough (mg/L) Date Value 05/22/2014 6.1 Creatinine clearance: Creatinine (mg/dL) Date Value 05/22/2014 0.27* Estimated Half-Life (T1/2) = 4.5 hours: Estimated Volume of distribution (Vd) = 33.3 Liters Recommendations: Dosing recommendations: ?? Based on this information a dose of 1000 mg every 8 hours, to start at 1500 (time) on 05/22/2014 should achieve an estimated trough level of 15 - 20 mcg/mL. Monitoring recommendations: ?? A new steady state level should be achieved after 4 half-lives. I suggest rechecking a vancomycin trough level 30 minutes prior to a scheduled dose at 0630 (time) on 05/23/2014. We will continue to monitor the patient as long as she remains on vancomycin therapy. Please watch SCr, BUN and fluid status closely. Please page the care area pharmacist with any questions you may have. Alternately, during off-hours you may call [phone] to contact a pharmacist. Yandy Dasilva, PHARMD Pager [phone] * Freddy Burciaga MD - 05/22/2014 6:59 AM EST Neurosurgery - Inpatient Progress Note ID: Tana Hayes Shelton, 18 y.o. female s/p removal of retained hardware, washout of infection 05/20 POD 2 Interval Hx: -ALEKSANDRA -Neurologically stable Objective: Medications: Scheduled Meds: ??? baclofen 10 mg Oral Nightly ??? levonorgestrel-ethinyl estradiol 1 tablet Oral Daily ??? polyethylene glycol 17 g Oral Daily ??? sodium chloride 0.9 % 5 mL Intravenous BID ??? docusate sodium 100 mg Oral BID ??? Vancomycin Level - MAR Order Reminder NOT APPLICABLE Once ??? vancomycin 1 g Intravenous Q12H ??? acetaminophen 15 mg/kg/dose Oral Q6H ??? diaZEPam 5 mg Oral BID ??? cefTRIAXone 2 g Intravenous Q12H ??? metroNIDAZOLE 500 mg Intravenous Q8H MARIANA Continuous Infusions: ??? sodium chloride 0.9% 50 mL/hr (05/22/14 0047) PRN Meds:ondansetron, sodium chloride 0.9 %, lidocaine, bisacodyl, HYDROmorphone, vancomycin AND Vancomycin, trough AND Vancomycin Level - [facility] Order Reminder, oxyCODONE Vitals: Temp: [36.8 ??C (98.2 ??F)-37.9 ??C (100.2 ??F)] Heart Rate: [95-133] Resp: [10-30] BP: (94-123)/(48-77) SpO2: [94 %-100 %] I/O: Intake/Output Summary (Last 24 hours) at 05/22/14 0700 Last data filed at 05/22/14 0540 Gross per 24 hour Intake 1644.6 ml Output 1465 ml Net 179.6 ml Labs: Recent Labs 05/22/14 0610 05/21/14 0423 05/20/14 1715 WBC 7.7 11.2* 8.4 HGB 11.6 12.8 14.0 PLATELET 342 362 405* Recent Labs 05/21/14 0423 05/20/14 1715 NA 138 138 K 4.0 3.7 CL 106 101 CO2 19* 20* BUN 3* 9 CREATININE 0.30* 0.37* No results for input(s): PT, INR in the last 72 hours. Physical Exam: Awake, alert Says a few words appropriately to questions PERRL Does not comply with EOM exam No facial droop Spastic quadriparesis Dressing clean and dry Wound without fluctuance Assessment/Plan:: 18 y.o. female s/p removal of retained hardware, washout of infection 05/20. Neurologically stable. - Close neurological observation, q4 checks - Triple Abx - SBP <160 - Hold anticoagulation - GI PPx Neurosurgery Attending addendum: I have seen and independently examined the above patient. I have reviewed the resident's history, physical exam, and impressions. I agree with the above, with the following additions/amendments: Afebrile. Acting normally per mother. Eyes open, interactive, moves BUE with prompting. Dressings dry. Neck supple. Vomiting overnight without obvious cause. Hypokalemic on labs this am. Needs KCl replacement, peds consult for vomiting. Clinically does not seem to be of ENVIRONMENTAL PROTECTION SPECIALIST origin. Continue triple antibiotics. ID consult. Cultures negative so far - please note that patient did receive Vancomycin in ED prior to OR wound cultures. There was obviously purulent material from the lumbar wound, so would favor empiric treatment even if cultures remain negative. Travis Burciaga MD Neurosurgery * Anurag Bradley RN - 05/21/2014 12:38 PM EST Report given to [facility]. Transferred to [place] [phone] with transport services, RN + family members. Please call Anurag ICU-RN at [phone] with regards to any questions post transfer. Thank you. * Dayday Humphrey MD - 05/21/2014 8:04 AM EST NS PROGRESS NOTE Stable overnight. ??? baclofen 10 mg Oral QAM ??? levonorgestrel-ethinyl estradiol 1 tablet Oral Daily ??? polyethylene glycol 17 g Oral Daily ??? sodium chloride 0.9 % 5 mL Intravenous BID ??? docusate sodium 100 mg Oral BID ??? vancomycin 1 g Intravenous Q12H ??? acetaminophen 15 mg/kg/dose Oral Q6H ??? diaZEPam 5 mg Oral BID ??? cefTRIAXone 2 g Intravenous Q12H ??? metroNIDAZOLE 500 mg Intravenous Q8H MARIANA ??? sodium chloride 0.9% 50 mL/hr (05/21/14 0010) Temp: [35.9 ??C (96.6 ??F)-38.1 ??C (100.6 ??F)] Heart Rate: [81-166] Resp: [11-32] BP: (97-141)/(54-122) SpO2: [97 %-100 %] I/O last 3 completed shifts: In: 1070 [I.V.:1070] Out: 1460 [Urine:1460] Awake, alert Says a few words appropriately to questions PERRL Does not comply with EOM exam No facial droop Spastic quadriparesis Dressing clean and dry Wound without fluctuance Recent Results (from the past 24 hour(s)) ELECTROLYTES PANEL Result Value Ref Range Sodium 138 135 - 145 mmol/L Potassium 3.7 3.5 - 5.0 mmol/L Chloride 101 98 - 107 mmol/L CO2 20 (*) 22 - 31 mmol/L Anion Gap 17 (*) 5 - 15 mmol/L BUN Result Value Ref Range BUN 9 8 - 18 mg/dL CREATININE Result Value Ref Range Creatinine 0.37 (*) 0.70 - 1.20 mg/dL Estimated GFR >60 >=60 GLUCOSE, RANDOM Result Value Ref Range Glucose Lvl 81 60 - 199 mg/dL HEMOGRAM Result Value Ref Range WBC 8.4 4.0 - 10.0 x10(3)/mcL RBC 4.80 3.93 - 5.22 x10(6)/mcL Hemoglobin 14.0 11.2 - 15.7 gm/dL Hematocrit 42.0 34.0 - 45.0 % MCV 87.5 79.0 - 94.0 fL MCH 29.2 26.6 - 32.2 pg MCHC 33.3 32.0 - 36.5 gm/dL Platelets 405 (*) 145 - 370 x10(3)/mcL RDWSD 44.5 35.0 - 46.0 fL RDWCV 13.9 10.9 - 14.4 % MPV 10.8 9.0 - 12.0 fL DIFFERENTIAL, AUTOMATED Result Value Ref Range Neutrophils % 71.0 Neutr Abs (ANC) 5.94 1.50 - 6.30 x10(3)/mcL Lymphocytes % 21.5 Lymphocytes Abs 1.8 1.0 - 3.6 x10(3)/mcL Monocytes % 6.0 Monocyte Abs 0.5 0.2 - 1.0 x10(3)/mcL Eosinophils % 1.2 Eosinophils Abs 0.1 0.0 - 0.5 x10(3)/mcL Basophils % 0.2 Basophils Abs 0.0 0.0 - 0.2 x10(3)/mcL Immature Gran % 0.10 Debora Gran Abs 0.01 0.00 - 0.05 x10(3)/mcL GREEN TUBE HOLD Result Value Ref Range Green Hold Sample in lab. L-LACTATE2 WHOLE BLOOD Result Value Ref Range Lactate WB 1.6 0.5 - 2.2 mmol/L URINALYSIS WITH MICROSCOPIC Result Value Ref Range Glucose UA Negative Negative mg/dL Protein UA Negative Negative mg/dL Bilirubin UA Negative Negative mg/dL Urobilinogen UA >=4.0 (*) Normal mg/dL pH UA 7.0 5.0 - 8.0 Blood UA Negative Negative mg/dL Ketones UA 20 (*) Negative mg/dL Nitrite UA Negative Negative Leukocytes UA Negative Negative mcL Appearance UA Hazy (*) Clear Spec [place] UA 1.026 1.002 - 1.030 Color UA Yellow Yellow RBC UA 32 (*) 0 - 4 /HPF WBC UA 5 0 - 5 /HPF Bacteria UA Rare (*) None /HPF Squam Epith UA 1 <=4 /HPF Trans Epith UA 1 <=1 /HPF Amorph Adina UA Rare (*) None /HPF TISSUE CULTURE Result Value Ref Range Tissue Culture Value: Patient Name: TANA SHELTON Ordered By: CELSONIKITETO Freddy DAILEY MR#: [id number] LOC: OR /Sex: 1995 (18 years), Female PROCEDURE: Tissue Culture SOURCE: Back COLLECTED: 05/20/2014 20:20 FREE TEXT SOURCE: Lumbar Wound Culture STARTED: 05/20/2014 22:13 STAINS / PREPARATIONS Gram Stain Report Verified:05/20/2014 22:28 Few White Blood Cells seen No microorganisms seen. TISSUE CULTURE Result Value Ref Range Tissue Culture Value: Patient Name: TANA SHELTON Ordered By: Freddy BURCIAGA MR#: [id number] LOC: OR /Sex: 1995 (18 years), Female PROCEDURE: Tissue Culture SOURCE: Back COLLECTED: 05/20/2014 21:25 FREE TEXT SOURCE: Lumbar wound Culture #2 STARTED: 05/20/2014 22:12 STAINS / PREPARATIONS Gram Stain Report Verified:05/20/2014 22:31 Few White Blood Cells seen No microorganisms seen. BASIC METABOLIC PANEL (NON-FASTING) Result Value Ref Range Glucose Lvl 107 60 - 199 mg/dL BUN 3 (*) 8 - 18 mg/dL Creatinine 0.30 (*) 0.70 - 1.20 mg/dL Sodium 138 135 - 145 mmol/L Potassium 4.0 3.5 - 5.0 mmol/L Chloride 106 98 - 107 mmol/L CO2 19 (*) 22 - 31 mmol/L Anion Gap 13 5 - 15 mmol/L Calcium 7.3 (*) 8.5 - 10.5 mg/dL Estimated GFR >60 >=60 HEMOGRAM Result Value Ref Range WBC 11.2 (*) 4.0 - 10.0 x10(3)/mcL RBC 4.36 3.93 - 5.22 x10(6)/mcL Hemoglobin 12.8 11.2 - 15.7 gm/dL Hematocrit 38.2 34.0 - 45.0 % MCV 87.6 79.0 - 94.0 fL MCH 29.4 26.6 - 32.2 pg MCHC 33.5 32.0 - 36.5 gm/dL Platelets 362 145 - 370 x10(3)/mcL RDWSD 43.8 35.0 - 46.0 fL RDWCV 13.9 10.9 - 14.4 % MPV 10.9 9.0 - 12.0 fL DIFFERENTIAL, AUTOMATED Result Value Ref Range Neutrophils % 94.4 Neutr Abs (ANC) 10.59 (*) 1.50 - 6.30 x10(3)/mcL Lymphocytes % 4.5 Lymphocytes Abs 0.5 (*) 1.0 - 3.6 x10(3)/mcL Monocytes % 0.9 Monocyte Abs 0.1 (*) 0.2 - 1.0 x10(3)/mcL Eosinophils % 0.0 Eosinophils Abs 0.0 0.0 - 0.5 x10(3)/mcL Basophils % 0.1 Basophils Abs 0.0 0.0 - 0.2 x10(3)/mcL Immature Gran % 0.10 Debora Gran Abs 0.01 0.00 - 0.05 x10(3)/mcL A/P: 18 y.o. female pod 1 I&D lumbar wound with CSF leak repair. Neurologically stable. - close neuro monitoring - vancomycin, ceftriaxone, and flagyl for postop infection - follow up wound cultures - monitor for pseudomeningocele/CSF leak * Jigna Duke RCP - 05/20/2014 11:57 PM EST Pt was extubated by , placed on 6 lpm simple mask with end tidal CO2 inline. Pt tolerated extubation well. * Deanna Villarreal RN - 05/20/2014 10:43 PM EST Pt arrived from OR intubated, sedated, unresponsive, propofol gtt infusing per anesthesia order, RTat bedside to set up vent, monitors applied and set appropriately for pt, lungs CTA, see flowsheet for full assessment, will continue to monitor 1125: Dr. Porras at bedside to reassess pt 1145: Dr. Laguna and Dr. Porras at bedside to administer reversal and extubate pt, RT at bedside to assist with extubation, pt transitioned to simple mask, suctioned for small amount of light brown blood tinged secretions, lungs CTA, pt tolerating well, Dr. Porras remains at bedside 0000: Pt moaning out, will medicate for pain PRN Mom at bedside to see pt 0030: Pt awake, becoming more alert, beginning to answer yes/no questions, pt appears to be at baseline per Dr. Porras, phase II initiated 0040: Report given to Jenn [employer]OW AND BORING MACHINE TENDER info reviewed/questions answered, pt ready for transfer documented in this encounter H&P Notes * Freddy Burciaga MD - 05/23/2014 8:00 AM EST Please see consult note. No changes. documented in this encounter Procedure Notes * Iron Aden RN - 05/25/2014 3:00 PM ESTAssociated Order(s): PLACE PICC LINE: CONTACT VASCULAR ACCESS [...] to the planned procedure. Hand Hygiene: The recovery room rn did perform hand hygiene prior to line insertion. Catheter type: PICC Lot number: [id number] Procedure Technique: Skin was prepped with chlorhexidine. Skin preparation agent was completely dry at the time of first skin puncture. The following barrier precaution methods were used:large sterile drape, maske/eye shield, large sterile gown, sterile gloves and cap. 3 ml of 1% Lidocaine was used for skin wheal. Ultrasound was used for guidance. Radiographic contrast agent was not injected for vein identification. Procedure Details: Order received for catheter placement. A 4 Fr. single lumen Bard Power catheter was placed into theright basilic vein over a 0.018 inch guidewire using modified seldinger technique and fluoroscopy. Arm circumference was 24 cm at 2 cm above the insertion site. Final catheter length (with trimming): 30 cm Internal: 29 cm External: 1 cm Tip in SVC per DR DORSEY. The line was not placed over a guidewire. Post Procedure: Diagnosis: FEBRILE ILLNESS Blood return noted on aspiration of line after placement confirmed. Sterile dressing applied: Biopatch and IV 3000. Findings: The patient did tolerate the procedure well. No Complications. Procedure Comments: NONE Iron Aden RN 05/25/2014 documented in this encounter Nursing Notes * Amarilis Angel RN - 05/26/2014 6:46 PM EST 0-Neuro service notified to reconcil orders Stated he would do KIRK documented in this encounter ED Notes * Belkis Louie MD - 05/20/2014 7:05 PM EST Tana Shelton is a 18 y.o. who presents to the Emergency Department with fevers increased spasticity and redness with drainage around her posterior wound. Patient had a baclofen pump removed about 48 hours ago I evaluated this patient with the resident I will cosign the resident's note Patient arrived tachycardic tachypneic increased spasticity, lactate of 1.6, external jugular vein catheterization placed on the left with good blood return patient was pancultured and identified forstarted neurosurgery was consulted Concerning for postop wound infection, patient's vital signs improved with IV fluid, Tylenol and low-dose Valium CRITICAL CARE DOCUMENTATION: Is there a high potential of sudden, clinically significant, or life threatening deterioration? yes Are there life and/or organ supporting interventions that require frequent personal assessment and manipulation or support to treat/prevent vital organ failure/deterioration? yes I personally performed 60 minutes of aggregate critical care time exclusive of procedures and teaching during this emergency department visit. This includes time spent during direct patient evaluation and reassessment, interpreting diagnostic tests, directing life and/or organ supporting interventions, and documentation. Belkis Louie MD 05/20/14 1908 * Leela Feliz RN - 05/20/2014 7:05 PM EST LATE NOTE ENTERED: Bedside Report given to EUNICE Bowman * Leela Feliz RN - 05/20/2014 6:15 PM EST Pt noted to have bilateral spasm of lower extremities Valium ordered by * Lilli Esquivel Julia - 05/20/2014 5:17 PM EST Name: Tana Shelton Date of : 1995 Chief Complaint: surgical site infection. History of Present Illness: Tana Shelton is a 18 y.o. female presenting with possible intrathecal pump infection. She had her intrathecal baclofen pump removed on She was fine post operatively and has been eating and drinking normally. She has been a little shaky and spasm-y (per Mom) over the past few days and her need for pain meds is greater than Mom would expect. Around noon her nurse changed her dressing and saw green drainage from dressing. The surgical site is red. Mom also noticed that she felt warm and was flushed. They called the customer experience consultant neurosurgeon, who advised that they come to the ED. Review of Systems: General: tactile fevers at home. Pulmonary: no cough, no increased work of breathing, no wheezing Abdominal: no abdominal pain, no nausea/vomiting, no diarrhea, no constipation Skin: has some hives but she frequently gets hives All other systems reviewed and negative. Past Medical History: Patient Active Problem List Diagnosis Code ??? 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 Acquired dysplasia of hip, bilateral 736.39 ??? Edema leg 782.3 ??? Scoliosis 737.30 ??? Spasticity 781.0 ??? Presence of intrathecal baclofen pump V45.89 Past Surgical History: Past Surgical History Procedure Laterality Date ??? Back surgery scoliosis repair ??? Hip osteotomy bilateral ??? Reconstruc hip socket, resec fem head 08/15/2010 ??ACETABULOPLASTY (GIRDLESTONE), RESECTION FEMORAL HEAD, BILATERAL performed by YAS OLIVER [facility] MAIN OR ??? Apply of hip casts, two legs 08/15/2010 CAST APPLICATION, HIP SPICA, BOTH LEGS performed by YAS OLIVER at [facility] MAIN OR ??? Removal deep implant 08/15/2010 REMOVAL IMPLANT, DEEP, BRUNO performed by YAS OLIVER at [facility] MAIN OR ??? Osteotomy femur shaft/supracondy 08/15/2010 ??OSTEOTOMY, FEMUR SHAFT OR SUPRACONDYLAR W/O FIXATION performed by YAS OLIVER at [facility] MAIN OR ??? Remove spinal canal catheter N/A 05/11/2014 REMOVAL OF INTRATHECAL OR EPIDURAL CATHETER performed by Jamaal Samuel MD at [facility] MAIN OR ??? Remove infusn device/pump N/A 05/11/2014 REMOVAL OF SPINE INFUSION PUMP performed by Jamaal Samuel MD at [facility] MAIN OR Medications: No current facility-administered medications on file prior to encounter. Current Outpatient Prescriptions on File Prior to Encounter Medication Sig Dispense Refill ??? acetaminophen (TYLENOL) 650 mg/20.3 mL Solution Take 22.3 mLs by mouth every 6 hours. ??? oxyCODONE (ROXICODONE) 5 mg Tablet Take 1-2 tablets by mouth every 4 hours as needed for Pain (PAIN) for up to 30 days. 30 tablet 0 ??? diaZEPam (VALIUM) 5 mg/5 mL (5 mL) Solution Take 5 mLs by mouth 2 times daily. 100 mL 0 ??? levonorgestrel-ethinyl estradiol (INTROVALE) 0.15-30 mg-mcg per tablet Take 1 tablet by mouth daily. ??? POLYETHYLENE GLYCOL 3350 (MIRALAX ORAL) Take by mouth daily. ??? baclofen (LIORESAL) 10 mg tablet 10 MG = 1 Tablet(s), PO, QPM ??? ibuprofen (ADVIL;MOTRIN) 100 mg/5 mL suspension 300 mg, PO, Q6H prn Allergies: Allergies Allergen Reactions ??? Fluoxetine Other (See Comments) HIVES, HEART RACES Immunizations: UTD Social History: Lives with Mom and three brothers and stepfather Tobacco exposure:No Day care/year in school: [employer] Physical Exam: Vitals: Patient Vitals for the past 24 hrs: BP Temp Temp src Pulse Resp SpO2 Weight 05/21/14 0105 118/70 mmHg - - 101 17 100 % - 05/21/14 0100 - - - 120 19 100 % - 05/21/14 0030 109/74 mmHg 36.7 ??C (98.1 ??F) Temporal 97 16 98 % - 05/21/14 0015 113/80 mmHg - - 125 20 98 % - 05/21/14 0000 111/74 mmHg - - 113 18 99 % - 05/20/14 2356 - - - - 19 100 % - 05/20/14 2345 103/54 mmHg - - 81 16 100 % - 05/20/14 2330 124/90 mmHg - - 111 12 100 % - 05/20/14 2315 125/89 mmHg - - 108 14 100 % - 05/20/14 2300 125/82 mmHg - - 103 13 100 % - 05/20/14 2245 136/100 mmHg - - 126 11 100 % - 05/20/14 2230 118/80 mmHg - - 118 12 100 % - 05/20/14 2229 - - - - 12 100 % - 05/20/14 2227 125/88 mmHg 35.9 ??C (96.6 ??F) Temporal 117 12 100 % - 05/20/14 1945 140/122 mmHg - - 155 14 - - 05/20/14 1930 118/90 mmHg - - 159 23 - - 05/20/14 1915 119/87 mmHg - - 166 23 - - 05/20/14 1845 124/61 mmHg - - 153 24 - - 05/20/14 1830 110/86 mmHg - - - - - - 05/20/14 1700 - 38.1 ??C (100.6 ??F) Rectal 144 32 98 % - 05/20/14 1620 141/90 mmHg 37.2 ??C (98.9 ??F) Axillary 138 20 100 % 47.628 kg (105 lb) Weight: Patient Vitals for the past 168 hrs: Weight 05/20/14 1620 47.628 kg (105 lb) General - awake, alert, mildly agitated but calms with Mom Head - normocephalic/atraumatic, face flushed Eyes - pupils equal, round, and reactive to light, extraocular movements intact, no conjunctival injection, no discharge, no scleral icterus Ears - normal external auditory canals bilat, tympanic membranes WNL bilat Nose - no rhinorrhea Mouth - moist mucous membranes, no oral lesions Oropharynx - no erythema, no exudate, no tonsillar enlargement Neck - supple, full range of motion, no lymphadenopathy Cardiovascular - tachycardic, regular rhythm, no murmurs Pulmonary - no cough; lungs clear to auscultation bilaterally, good air movement throughout, no wheeze, no stridor, no crackles/rales, no retractions, no accessory muscle use Abdomen - difficult exam due to severe scoliosis, soft, not obviously tender. Normoactive bs. Back: Erythema surrounding surgical wound. Purulent drainage from wound. Extremities - warm and well perfused, cap refill < 2 sec throughout Skin - no rashes Neuro - increased tone in upper and lower extremities. Contractures in upper extremities. 3 beats clonus in left ankle. Unable to move arms and legs. ED course: EJ placed 1 L NS given 1 g vancomycin IV 2 mg morphine for pain 50 mg diphenhydramine for red man's Labs (reviewed by me): Recent Results (from the past 24 hour(s)) ELECTROLYTES PANEL Result Value Range Sodium 138 135 - 145 mmol/L Potassium 3.7 3.5 - 5.0 mmol/L Chloride 101 98 - 107 mmol/L CO2 20 (*) 22 - 31 mmol/L Anion Gap 17 (*) 5 - 15 mmol/L BUN Result Value Range BUN 9 8 - 18 mg/dL CREATININE Result Value Range Creatinine 0.37 (*) 0.70 - 1.20 mg/dL Estimated GFR >60 >=60 GLUCOSE, RANDOM Result Value Range Glucose Lvl 81 60 - 199 mg/dL HEMOGRAM Result Value Range WBC 8.4 4.0 - 10.0 x10(3)/mcL RBC 4.80 3.93 - 5.22 x10(6)/mcL Hemoglobin 14.0 11.2 - 15.7 gm/dL Hematocrit 42.0 34.0 - 45.0 % MCV 87.5 79.0 - 94.0 fL MCH 29.2 26.6 - 32.2 pg MCHC 33.3 32.0 - 36.5 gm/dL Platelets 405 (*) 145 - 370 x10(3)/mcL RDWSD 44.5 35.0 - 46.0 fL RDWCV 13.9 10.9 - 14.4 % MPV 10.8 9.0 - 12.0 fL DIFFERENTIAL, AUTOMATED Result Value Range Neutrophils % 71.0 Neutr Abs (ANC) 5.94 1.50 - 6.30 x10(3)/mcL Lymphocytes % 21.5 Lymphocytes Abs 1.8 1.0 - 3.6 x10(3)/mcL Monocytes % 6.0 Monocyte Abs 0.5 0.2 - 1.0 x10(3)/mcL Eosinophils % 1.2 Eosinophils Abs 0.1 0.0 - 0.5 x10(3)/mcL Basophils % 0.2 Basophils Abs 0.0 0.0 - 0.2 x10(3)/mcL Immature Gran % 0.10 Debora Gran Abs 0.01 0.00 - 0.05 x10(3)/mcL GREEN TUBE HOLD Result Value Range Green Hold Sample in lab. L-LACTATE2 WHOLE BLOOD Result Value Range Lactate WB 1.6 0.5 - 2.2 mmol/L URINALYSIS WITH MICROSCOPIC Result Value Range Glucose UA Negative Negative mg/dL Protein UA Negative Negative mg/dL Bilirubin UA Negative Negative mg/dL Urobilinogen UA >=4.0 (*) Normal mg/dL pH UA 7.0 5.0 - 8.0 Blood UA Negative Negative mg/dL Ketones UA 20 (*) Negative mg/dL Nitrite UA Negative Negative Leukocytes UA Negative Negative mcL Appearance UA Hazy (*) Clear Spec [place] UA 1.026 1.002 - 1.030 Color UA Yellow Yellow RBC UA 32 (*) 0 - 4 /HPF WBC UA 5 0 - 5 /HPF Bacteria UA Rare (*) None /HPF Squam Epith UA 1 <=4 /HPF Trans Epith UA 1 <=1 /HPF Amorph Adina UA Rare (*) None /HPF TISSUE CULTURE Result Value Range Tissue Culture Radiographic studies (reviewed by me): Assessment and Plan: Tana Shelton is a 18 y.o. female presenting with sepsis secondary to infection of surgical wound site. She received a NS bolus, tylenol and IV antibiotics here in the ED and tachycardia and fever improved somewhat. She subsequently went to the OR for washout of her surgical wound. Further management including fluid support, antibiotics and pain control per neurosurgery team. Disposition:to PICU Lilli Esquivel MD Resident 05/21/14 0127 Lilli Esquivel MD Resident 05/21/14 1377 Associated attestation - Belkis Louie MD - 06/01/2014 12:47 PM EST ED ATTENDING ATTESTATION NOTE The patient was seen in conjunction with Dr. Esquivel, the resident physician. I have independently performed the foster portions of the history and physical exam. I have reviewed the nursing notes, vitalsigns, and all diagnostic studies personally including labs, imaging studies and EKGs. I have discussed the details of the case with the resident and agree with the assessment and plan as described in the resident note above unless noted otherwise below. Brief Summary: Patient presents with what appears to be a CSF leak and possible wound infection, patient is tachycardiac tachypneic and agitated, or lactate is not in the septic area, external jugular vein IV was placed on the left without complications cultures were sent patient was hydrated with fluids vancomycin was administered neurosurgery was consulted Final Assessment: CSF leak with possible wound infection patient to the OR by neurosurgery please see their note CRITICAL CARE DOCUMENTATION: Is there a high potential of sudden, clinically significant, or life threatening deterioration? yes Are there life and/or organ supporting interventions that require frequent personal assessment and manipulation or support to treat/prevent vital organ failure/deterioration? yes I personally performed 60 minutes of aggregate critical care time exclusive of procedures and teaching during this emergency department visit. This includes time spent during direct patient evaluation and reassessment, interpreting diagnostic tests, directing life and/or organ supporting interventions, and documentation. * Leela Feliz RN - 05/20/2014 5:15 PM EST LATE NOTE ENTERED: Dr. Louie made aware of The only peripheral IV is a 24g into left hand. Also made MD aware that pt has bilateral upper extremity contractions which inhibits attempt for antecubitalIV insertion. PLAN: MD to place external Jugular IV insertion for fluid resuscitation. Mother verbalized understanding. * Leela Feliz RN - 05/20/2014 5:00 PM EST LATE NOTE ENTERED: Assumed pt care at this time. Mother present. Mother assisted with transfer of pt to stretcher. Pt noted to have bilateral hip extension. Pillows propped upon placing pt on stretcher. See complete assessment info. Dr. Louie summonsed to room immediately upon pt's arrival to treatment area. documented in this encounter Miscellaneous Notes * Discharge Summary - Jamaal Dorsey PA - 06/02/2014 1:43 PM EST Images from the original note were not included. Discharge Summary Patient Name: Tana Shelton Patient Age: 18 y.o. date:1995 Admit date: 05/20/2014 Discharge date and time: 06/02/2014 Attending Physician: Jamaal Samuel Primary Diagnosis: wound infection s/p hardware removal Secondary Diagnoses: n/a History of Presentation: Tana is a 18 year old girl with a history of increased tone which was managed with intrathecal baclofen. She underwent placement of an intrathecal baclofen pump in 2007 at the [facility]. Mother feels that the pump has not been helpful in treating Tana's tone. She has been followed by [facility] who has weaned Tana off of [...] taken to the OR for a wash out. Procedures: 05/21/2014: deep soft tissue abscess, repair of dural/ csf leak with out laminectomy 05/26/2014: deep tissue abscess, washout. Hospital Course: Tana was admitted as above and taken to the OR on 05/21. She was taken back to thePICU for post-op care and started on triple antibiotics. Gal wound cultures were positive for pseudomonas and her antibiotic therapy was narrowed to ceftazidime. On post-op day 5 she was again notedto have purulent drainage coming form the wound and was taken back to the OR for a second washout. Vancomycin was restarted and a PICC line was place. Wound culture form the second washout grew coag negative Staph. Her antibiotics have again been narrowed to include oral Levaquin. Her PICC line hasbeen removed. She is now doing very well and back to her baseline status she is tolerating a regular diet, she is no longer having fevers and her incision is dry and intact. Tana has been deemed to be ready for discharge home. Lab data including Microbiology: Recent Results (from the past 72 hour(s)) BASIC METABOLIC PANEL (NON-FASTING) Result Value Ref Range Glucose Lvl 95 60 - 199 mg/dL BUN 4 (*) 8 - 18 mg/dL Creatinine 0.38 (*) 0.70 - 1.20 mg/dL Sodium 140 135 - 145 mmol/L Potassium 3.9 3.5 - 5.0 mmol/L Chloride 104 98 - 107 mmol/L CO2 25 22 - 31 mmol/L Anion Gap 11 5 - 15 mmol/L Calcium 9.0 8.5 - 10.5 mg/dL Estimated GFR >60 >=60 HEMOGRAM Result Value Ref Range WBC 7.4 4.0 - 10.0 x10(3)/mcL RBC 4.20 3.93 - 5.22 x10(6)/mcL Hemoglobin 12.0 11.2 - 15.7 gm/dL Hematocrit 36.5 34.0 - 45.0 % MCV 86.9 79.0 - 94.0 fL MCH 28.6 26.6 - 32.2 pg MCHC 32.9 32.0 - 36.5 gm/dL Platelets 414 (*) 145 - 370 x10(3)/mcL RDWSD 44.9 35.0 - 46.0 fL RDWCV 14.1 10.9 - 14.4 % MPV 10.2 9.0 - 12.0 fL DIFFERENTIAL, AUTOMATED Result Value Ref Range Neutrophils % 66.8 Neutr Abs (ANC) 4.96 1.50 - 6.30 x10(3)/mcL Lymphocytes % 20.9 Lymphocytes Abs 1.6 1.0 - 3.6 x10(3)/mcL Monocytes % 8.7 Monocyte Abs 0.6 0.2 - 1.0 x10(3)/mcL Eosinophils % 3.0 Eosinophils Abs 0.2 0.0 - 0.5 x10(3)/mcL Basophils % 0.5 Basophils Abs 0.0 0.0 - 0.2 x10(3)/mcL Immature Gran % 0.10 Debora Gran Abs 0.01 0.00 - 0.05 x10(3)/mcL HIGH SENSITIVITY CRP Result Value Ref Range CRP High Sens 15.4 SEDIMENTATION RATE Result Value Ref Range Sed Rate 46 (*) 0 - 20 mm/hr BASIC METABOLIC PANEL (NON-FASTING) Result Value Ref Range Glucose Lvl 75 60 - 199 mg/dL BUN 5 (*) 8 - 18 mg/dL Creatinine 0.30 (*) 0.70 - 1.20 mg/dL Sodium 139 135 - 145 mmol/L Potassium 4.0 3.5 - 5.0 mmol/L Chloride 104 98 - 107 mmol/L CO2 23 22 - 31 mmol/L Anion Gap 12 5 - 15 mmol/L Calcium 8.6 8.5 - 10.5 mg/dL Estimated GFR >60 >=60 HEMOGRAM Result Value Ref Range WBC 7.4 4.0 - 10.0 x10(3)/mcL RBC 3.85 (*) 3.93 - 5.22 x10(6)/mcL Hemoglobin 11.0 (*) 11.2 - 15.7 gm/dL Hematocrit 33.8 (*) 34.0 - 45.0 % MCV 87.8 79.0 - 94.0 fL MCH 28.6 26.6 - 32.2 pg MCHC 32.5 32.0 - 36.5 gm/dL Platelets 362 145 - 370 x10(3)/mcL RDWSD 45.9 35.0 - 46.0 fL RDWCV 14.3 10.9 - 14.4 % MPV 10.5 9.0 - 12.0 fL DIFFERENTIAL, AUTOMATED Result Value Ref Range Neutrophils % 64.5 Neutr Abs (ANC) 4.75 1.50 - 6.30 x10(3)/mcL Lymphocytes % 24.3 Lymphocytes Abs 1.8 1.0 - 3.6 x10(3)/mcL Monocytes % 6.9 Monocyte Abs 0.5 0.2 - 1.0 x10(3)/mcL Eosinophils % 3.7 Eosinophils Abs 0.3 0.0 - 0.5 x10(3)/mcL Basophils % 0.5 Basophils Abs 0.0 0.0 - 0.2 x10(3)/mcL Immature Gran % 0.10 Debora Gran Abs 0.01 0.00 - 0.05 x10(3)/mcL Patient Condition at Discharge: stable Discharge instructions: Activity: x Routine activities as tolerated. Your child may fatigue quite easily Avoid contact sports and other rough activities for 3 months after surgery Diet: regular Medications: Your Medications New Medications Dose Details bisacodyl 10 mg Supp Commonly known as: DULCOLAX Place 1 suppository rectally daily as needed. 10 mg Quantity: 60 suppository Refills: 3 levofloxacin 750 mg Tab Commonly known as: LEVAQUIN Take 1 tablet by mouth every morning for 10 days. 750 mg Quantity: 10 tablet Refills: 0 Continued medications, unchanged Dose Details acetaminophen 650 mg/20.3 mL Soln Commonly known as: TYLENOL Take 22.3 mLs by mouth every 6 hours. 15 mg/kg/dose Refills: 0 baclofen 10 mg Tab Commonly known as: LIORESAL 10 MG = 1 Tablet(s), PO, QPM Refills: 0 diaZEPam 5 mg/5 mL (5 mL) Soln Commonly known as: VALIUM Take 5 mLs by mouth 2 times daily. 5 mg Quantity: 100 mL Refills: 0 ibuprofen 100 mg/5 mL Susp Commonly known as: ADVIL;MOTRIN 300 mg, PO, Q6H prn Refills: 0 INTROVALE 0.15-30 mg-mcg 3mpk Take 1 tablet by mouth daily. Generic drug: levonorgestrel-ethinyl estradiol 1 tablet Refills: 0 MIRALAX ORAL Take by mouth daily. Refills: 0 STOPPED Medications oxyCODONE 5 mg Tab Commonly known as: ROXICODONE Wound care: Incision/dressings: Dressings can be removed and she can resume bathing once you get home. Shower/Bath: Don???t submerge the incision under water in a bathtub, hot tub, or go swimming until two weeks after surgery. Sutures: Your sutures are not dissolvable and will need to be removed in 2 weeks after surgery. Things to Watch For: ? Leakage of fluid from the incision ? Excessive redness surrounding the wound ? Increased swelling underneath the wound ? Worsening headache ? Stiff neck ? Sensitivity to light ? Fever greater than 101.5 F ? Anything else that is concerning to you. Follow-up appointments: Follow up in 2 weeks on June 08 at 4:30 pm. Call Pediatric Neurosurgery if you need to reschedule your follow-up appointment. Your attending pediatric neurosurgeon is: Dr. Samuel [facility]/ home care orders: New (Edit) Durable Medical Equipment Order Hospital Performed, Routine, Qty-1 Name/Description of requested item: Hospital bed mattress Size requested: twin bed Vendor Name/Contact information: [facility] New (Edit) Referral for Outpatient Antibiotics Routine, Hospital Performed Vendor / contact information: [facility] Patient location post discharge: home Service requested: IV abx Start date: 05/26/2014 Responsible MD post discharge contact info: PCP New (Edit) Referral to Home Health - at DISCHARGE Routine, Clinic Performed Agency name and contact information: [facility] Patient location post discharge: home What services are requested: Registered Nurse, Home Health Aide, Physical Therapy, Occupational Therapy Start date: 06/06/2014 Responsible MD post discharge contact info: PCP PATIENT'S LOCATION: Tana Freddy Shelton [address] [place] [phone] (home) In discussion with the attending physician, it is certified that this patient is under their care and that they, or a Nurse Practitioner,Clinical Nurse specialist or Physician Scientist who is working directly with them, had a face to face encounter that meets the physician face to face encounter requirements with this patient on 05/24/2014 The encounter with the patient was in whole, or in part, for the following medical condition, which is the primary reason for home health careservices: infection on IV abx In discussion with the provider, it is certified that, based on their findings, the following services are medically necessary for home health services. To provide the following care/treatments with the clinical findings supporting the need for services as follows: HOME CARE ORDERS: RN ORDERS:Assess wound or incision, vital signs, cardiopulmonary status, nutrition, hydration, elimination, meds effectiveness and management; reinforce education re health issues. PT: Continue with therapies OT: Continue with therapies EDI DEVELOPER: Continue support HOME HEALTH CARE AGENCY: [facility] PHONE: [phone] FAX: [phone] Start of care: 05/26/14 Please note that any additional orders needs or changes will need to be obtained from this patient's PCP: NAINA LINDSEY MD [address] / [place] [address] All [facility] agencies which cover the area of patient's residence have been reviewed, either verbally or in writing, and patient/family have chosen the home health care agency noted Emergency contact: After hours and weekends, call the [facility] stone operator at and ask them to page the neurosurgery resident customer experience consultant. * Plan of Care - Margot Monzon RN - 06/02/2014 4:08 AM EST Problem: General Plan of Care Goal: Plan of Care Review Outcome: Ongoing (Interventions Implemented as Appropriate) 06/01/14 0606/01/14 1707 Plan of Care Review Plan of Care Outcome Status ongoing (interventions implemented as appropriate) -- Progress -- improving Coping/Psychosocial Response Interventions Plan of Care Reviewed with -- mother OUTCOME EVALUATION NOTE: OUTCOME SUMMARY: Refused dinner. Taking small amounts of liquids with HS medication. IV fluids infusing as ordered. No discomfort noted. Mother @ bedside; stated that she herself has been vomiting and having diarrhea(got food poisoning from some soup she ate yesterday). PLAN MOVING FORWARD: Continue with antibiotics as ordered. Encourage oral intake. INDIVIDUALIZED FALL PREVENTION: Assistance: Total care. Supervision: Mother and/or nursing staff. Surveillance: The registered nurse will be responsible for purposeful rounding on each of their patients. Purposeful rounding will address the patient's pain/comfort, safety, and presence of family/observer at bedside. Purposeful rounding performed hourly between 0800 and 1800, and every other hourbetween 2000 and 08. CPG GOAL OUTCOME EVALUATION: Goal: Fall Prevention-Safe Patient Handling Outcome: Ongoing (Interventions Implemented as Appropriate) 05/21/14 0805/30/14 0805/30/14 1000 Musculoskeletal Interventions Activity/Level of Assistance -- -- -- Positioning -- -- -- Muscle Strengthening -- -- personal routines for BADL/IADL promoted Self-Care Promotion -- -- -- Activity and Safety Assistive Device -- -- -- Safety Interventions Safety Precautions/Fall Reduction -- -- -- Woodall Fall Risk History of Falling -- 0 -- Secondary Diagnosis -- 15 -- Ambulatory Aids -- 0 -- Intravenous Therapy/Heparin/Saline Lock -- 20 -- Gait/Transferring -- 0 -- Mental Status -- 15 -- Score -- 50 -- OTHER Woodall Fall Risk High (45 and higher) -- -- 05/31/14 1542 06/01/14199906/02/140 Musculoskeletal Interventions Activity/Level of Assistance -- -- with 2-person assist Positioning -- -- -- Muscle Strengthening -- -- -- Self-Care Promotion bathing assistance provided;dressing assistance provided;hygiene assistance provided;adaptive equipment provided -- -- Activity and Safety Assistive Device Wheelchair -- -- Safety Interventions Safety Precautions/Fall Reduction -- fall reduction program maintained;family at bedside -- Woodall Fall Risk History of Falling -- -- -- Secondary Diagnosis -- -- -- Ambulatory Aids -- -- -- Intravenous Therapy/Heparin/Saline Lock -- -- -- Gait/Transferring -- -- -- Mental Status -- -- -- Score -- -- -- OTHER Woodall Fall Risk -- -- -- 06/02/149 Musculoskeletal Interventions Activity/Level of Assistance -- Positioning HOB lowered Muscle Strengthening -- Self-Care Promotion -- Activity and Safety Assistive Device -- Safety Interventions Safety Precautions/Fall Reduction -- Woodall Fall Risk History of Falling -- Secondary Diagnosis -- Ambulatory Aids -- Intravenous Therapy/Heparin/Saline Lock -- Gait/Transferring -- Mental Status -- Score -- OTHER Woodall Fall Risk -- Goal: Infection Control Outcome: Ongoing (Interventions Implemented as Appropriate) 06/01/1492306/01/141999 Coping/Psychosocial Response Interventions Counseling calming techniques promoted;emotional support provided;relaxation techniques promoted;understanding of situation facilitated -- Safety Interventions Isolation Precautions -- standard precautions maintained Infection Prevention promote handwashing;rest/sleep promoted;nutrition promoted;hydration promoted;environmental surveillance;bronchial hygiene promoted -- Goal: Discharge Needs Assessment Outcome: Ongoing (Interventions Implemented as Appropriate) 05/22/1434 05/26/14 1705 05/27/14 1220 Discharge Needs Assessment Concerns to be Addressed -- -- -- Readmission Within the Last 30 Days -- clinical decline -- Equipment Needed After Discharge none -- -- Current Health Anticipated Changes Related to Illness -- none -- Living Environment Transportation Available -- -- car;family or friend will provide Self-Care Equipment Currently Used at Home -- wheelchair -- 06/01/141706 Discharge Needs Assessment Concerns to be Addressed no discharge needs identified Readmission Within the Last 30 Days -- Equipment Needed After Discharge -- Current Health Anticipated Changes Related to Illness -- Living Environment Transportation Available -- Self-Care Equipment Currently Used at Home -- Problem: Skin Integrity Impairment, Risk/Actual (Adult, Obstetrics) Goal: Identify Signs and Symptoms and Related Risk Factors Signs and symptoms and related risk factors are identified upon initiation of Human Response Clinical Practice Guideline (CPG) Outcome: Ongoing (Interventions Implemented as Appropriate) 05/28/14 0506 05/31/141541 Skin Integrity Impairment, Risk/Actual Personal Related Risk Factors (Skin Integrity Impairment, Risk/Actual) -- developmental factors Physiological Related Risk Factors (Skin Integrity Impairment, Risk/Actual) abnormal tissue growth -- Treatment Related Related Risk Factors (Skin Integrity Impairment, Risk/Actual) -- invasive catheters;surgery Signs and Symptoms (Skin Integrity Impairment, Risk/Actual) -- other (see comments) (wound sites appear to be healing well at this time) Goal: Skin Integrity/Wound Healing Patient will demonstrate the desired outcomes. Outcome: Ongoing (Interventions Implemented as Appropriate) 06/01/141706 Skin Integrity Impairment, Risk/Actual (Adult, Obstetrics) Skin Integrity/Wound Healing making progress toward outcome Problem: Infection, Risk/Actual (Adult, Obstetrics) Goal: Identify Signs and Symptoms and Related Risk Factors Signs and symptoms and related risk factors are identified upon initiation of Human Response Clinical Practice Guideline (CPG) Outcome: Ongoing (Interventions Implemented as Appropriate) 05/31/14 1542 06/01/141706 Infection, Risk/Actual Personal Related Risk Factors (Infection, Risk/Actual) -- knowledge deficit Environmental Related Risk Factors (Infection, Risk/Actual) -- hospital acquired (nosocomial) Physiological Related Risk Factors (Infection, Risk/Actual) -- chronic illness Treatment Related Related Risk Factors (Infection, Risk/Actual) invasive procedures -- Signs and Symptoms (Infection, Risk/Actual) other (see comments) (No S/s at this time; continues on IV antibiotics) -- Goal: Infection Prevention/Resolution/Control Patient will demonstrate the desired outcomes. Outcome: Ongoing (Interventions Implemented as Appropriate) 06/01/14 1707 Infection, Risk/Actual (Adult, Obstetrics) Infection Prevention/Resolution/Control making progress toward outcome Problem: Health Knowledge, Opportunity for Enhanced (Adult, NICU, , Obstetrics, Pediatric) Goal: Identify Signs and Symptoms and Related Risk Factors Signs and symptoms and related risk factors are identified upon initiation of Human Response Clinical Practice Guideline (CPG) Outcome: Ongoing (Interventions Implemented as Appropriate) 05/28/14 1727 Health Knowledge, Opportunity for Enhanced Personal Related Risk Factors (Health Knowledge, Opportunity for Enhanced) communication obstacles Physiological Related Risk Factors (Health Knowledge, Opportunity for Enhanced) cognitive limitation;developmental disability * Plan of Care - Dolores Patino RN - 06/01/2014 5:45 PM EST Problem: General Plan of Care Goal: Plan of Care Review 06/01/14 1707 Plan of Care Review Progress improving Coping/Psychosocial Response Interventions Plan of Care Reviewed with mother OUTCOME EVALUATION NOTE: OUTCOME SUMMARY: Afebrile; TMax 37.1. Continues on IV antibiotics. Labs this afternoon [facility]; CRP and Sed Rate elevated. Brief episode of elevated HR 120 - 140's late morning/noon; Dr. Samuel at bedside and reviewed VS and trend. Tana received Oxycodone for some discomfort this afternoon per Mom's request; pain score improved and Mom in agreement Tana appeared more comfortable. Approximately 1740, Tana became upset; Tana was changed and repositioned, Non verbal pain score 8/10; Mom concerned and requested RN notify MD; Dr Sparks notified. Rectal Tylenol and scheduled Baclofen dose administered ( Mom deferredValium at this time) and shortly thereafter non verbal pain score 3/10; Tana smiling with interactions and counting to 10 with encouragement. Mom in agreement Tana appears more comfortable and requesting lights off and provide relaxing environment. Mom aware of plan; Dr Sparks to evaluate later thisevening. PLAN MOVING FORWARD: Monitor closely for subtle S/S infection and or worsening pain. IV antibiotics INDIVIDUALIZED FALL PREVENTION: Assistance: Total; GDD 18 yo. Supervision: Continuous; Moraima. Fannie at home disaster recovery coordinator at bedside this morning ; Mom arrived to bedside later morning and participating in cares at bedside. Surveillance: The registered nurse will be responsible for purposeful rounding on each of their patients. Purposeful rounding will address the patient's pain/comfort, safety, and presence of family/observer at bedside. Purposeful rounding performed hourly between 0800 and 1800, and every other hourbetween 2000 and 0800. CPG GOAL OUTCOME EVALUATION: Goal: Discharge Needs Assessment 06/01/141706 Discharge Needs Assessment Concerns to be Addressed no discharge needs identified Problem: Skin Integrity Impairment, Risk/Actual (Adult, Obstetrics) Goal: Skin Integrity/Wound Healing Patient will demonstrate the desired outcomes. 06/01/141706 Skin Integrity Impairment, Risk/Actual (Adult, Obstetrics) Skin Integrity/Wound Healing making progress toward outcome Problem: Infection, Risk/Actual (Adult, Obstetrics) Goal: Identify Signs and Symptoms and Related Risk Factors Signs and symptoms and related risk factors are identified upon initiation of Human Response Clinical Practice Guideline (CPG) 06/01/141706 Infection, Risk/Actual Personal Related Risk Factors (Infection, Risk/Actual) knowledge deficit Environmental Related Risk Factors (Infection, Risk/Actual) hospital acquired (nosocomial) Physiological Related Risk Factors (Infection, Risk/Actual) chronic illness Goal: Infection Prevention/Resolution/Control Patient will demonstrate the desired outcomes. 06/01/141706 Infection, Risk/Actual (Adult, Obstetrics) Infection Prevention/Resolution/Control making progress toward outcome * Plan of Care - Linsey Mcintyre RN - 06/01/2014 8:37 AM EST Problem: General Plan of Care Goal: Plan of Care Review Outcome: Ongoing (Interventions Implemented as Appropriate) 06/01/14621 Plan of Care Review Plan of Care Outcome Status ongoing (interventions implemented as appropriate) Progress improving Coping/Psychosocial Response Interventions Plan of Care Reviewed with patient OUTCOME EVALUATION NOTE: OUTCOME SUMMARY: Care assumed at 1900, resting in bed with family caregiver at the bedside. No discomfort noted. Turned every 3-4 hours and diaper checked. Voiding qs, no stool through the night. PLAN MOVING FORWARD: Continue with IV abx. Working towards home on the IV abx. INDIVIDUALIZED FALL PREVENTION: Assistance: Total care with 2 assist for diaper changes and turning. Supervision: RN deion and moraima. Mom at bedside all shift. Surveillance: The registered nurse will be responsible for purposeful rounding on each of their patients. Purposeful rounding will address the patient's pain/comfort, safety, and presence of family/observer at bedside. Purposeful rounding performed hourly between 0800 and 1800, and every other hourbetween 2000 and 0800. CPG GOAL OUTCOME EVALUATION: Goal: Fall Prevention-Safe Patient Handling Outcome: Ongoing (Interventions Implemented as Appropriate) 05/31/142021 Safety Interventions Safety Precautions/Fall Reduction family at bedside Goal: Infection Control Outcome: Ongoing (Interventions Implemented as Appropriate) 05/31/14 1542 05/31/142015 Coping/Psychosocial Response Interventions Counseling calming techniques promoted;emotional support provided;goal setting facilitated;personalstrengths integrated;reassurance provided;verbalization of feelings encouraged;relaxation techniques promoted -- Safety Interventions Isolation Precautions -- standard precautions maintained Infection Prevention -- bronchial hygiene promoted;environmental surveillance;hydration promoted;nutrition promoted;promote handwashing;rest/sleep promoted Goal: Discharge Needs Assessment Outcome: Ongoing (Interventions Implemented as Appropriate) 05/26/14 1705 05/27/14 1220 05/31/14 1542 Discharge Needs Assessment Concerns to be Addressed -- -- no discharge needs identified Living Environment Transportation Available -- car;family or friend will provide -- Self-Care Equipment Currently Used at Home wheelchair -- -- Problem: Skin Integrity Impairment, Risk/Actual (Adult, Obstetrics) Goal: Identify Signs and Symptoms and Related Risk Factors Signs and symptoms and related risk factors are identified upon initiation of Human Response Clinical Practice Guideline (CPG) Outcome: Ongoing (Interventions Implemented as Appropriate) 05/31/14 154 Skin Integrity Impairment, Risk/Actual Personal Related Risk Factors (Skin Integrity Impairment, Risk/Actual) developmental factors Treatment Related Related Risk Factors (Skin Integrity Impairment, Risk/Actual) invasive catheters;surgery Signs and Symptoms (Skin Integrity Impairment, Risk/Actual) other (see comments) (wound sites appear to be healing well at this time) Goal: Skin Integrity/Wound Healing Patient will demonstrate the desired outcomes. Outcome: Ongoing (Interventions Implemented as Appropriate) 06/01/14 0659 Skin Integrity Impairment, Risk/Actual (Adult, Obstetrics) Skin Integrity/Wound Healing making progress toward outcome * Plan of Care - Dolores Patino RN - 05/31/2014 4:06 PM EST Problem: General Plan of Care Goal: Fall Prevention-Safe Patient Handling 05/31/14 1542 Musculoskeletal Interventions Activity/Level of Assistance bed rest (OBB to WC with PT today) Positioning HOB up 30 degrees Self-Care Promotion bathing assistance provided;dressing assistance provided;hygiene assistance provided;adaptive equipment provided Activity and Safety Assistive Device Wheelchair Safety Interventions Safety Precautions/Fall Reduction fall reduction program maintained;family at bedside OUTCOME EVALUATION NOTE: OUTCOME SUMMARY: Afebrile.VSS. Neuro checks WNL; at baseline per Mom; counting to 10 with encouragement; smiles withengagement from family and staff. Intermittent discomfort noted today; Mom related possibly due to last BM 5 days ago and Tana feeling abdominal fullness/discomfort. Received scheduled and PRN bowelorders with small results; received Fleets enema at ~ 1400 with fairly immediate large loose stool.Received bed bath. Turned Q 2 hours, repositioned with pillows. Nystatin ordered to diaper are thismorning. Mom at bedside participating in care. PT assisted to WC. Respite provided Mom during bath time and linen change. PLAN MOVING FORWARD: Continue per orders. Monitor skin/incisions for subtle changes/ worsening. Monitor diaper area for improvement with start of Nystatin INDIVIDUALIZED FALL PREVENTION: Assistance: Total; 18 yo with Global developmental delay Supervision: Continuous; Robertao. Mom at bedside providing cares Surveillance: The registered nurse will be responsible for purposeful rounding on each of their patients. Purposeful rounding will address the patient's pain/comfort, safety, and presence of family/observer at bedside. Purposeful rounding performed hourly between 0800 and 1800, and every other hourbetween 2000 and 0800. CPG GOAL OUTCOME EVALUATION: Goal: Infection Control 05/31/14 1542 Coping/Psychosocial Response Interventions Counseling calming techniques promoted;emotional support provided;goal setting facilitated;personalstrengths integrated;reassurance provided;verbalization of feelings encouraged;relaxation techniques promoted Safety Interventions Isolation Precautions standard precautions maintained Infection Prevention bronchial hygiene promoted;environmental surveillance;hydration promoted;nutrition promoted;promote handwashing;rest/sleep promoted Goal: Discharge Needs Assessment 05/31/141541 Discharge Needs Assessment Concerns to be Addressed no discharge needs identified Problem: Skin Integrity Impairment, Risk/Actual (Adult, Obstetrics) Goal: Identify Signs and Symptoms and Related Risk Factors Signs and symptoms and related risk factors are identified upon initiation of Human Response Clinical Practice Guideline (CPG) 05/31/141541 Skin Integrity Impairment, Risk/Actual Personal Related Risk Factors (Skin Integrity Impairment, Risk/Actual) developmental factors Treatment Related Related Risk Factors (Skin Integrity Impairment, Risk/Actual) invasive catheters;surgery Signs and Symptoms (Skin Integrity Impairment, Risk/Actual) other (see comments) (wound sites appear to be healing well at this time) Goal: Skin Integrity/Wound Healing Patient will demonstrate the desired outcomes. 05/31/141541 Skin Integrity Impairment, Risk/Actual (Adult, Obstetrics) Skin Integrity/Wound Healing making progress toward outcome Problem: Infection, Risk/Actual (Adult, Obstetrics) Goal: Identify Signs and Symptoms and Related Risk Factors Signs and symptoms and related risk factors are identified upon initiation of Human Response Clinical Practice Guideline (CPG) 05/31/141541 Infection, Risk/Actual Personal Related Risk Factors (Infection, Risk/Actual) knowledge deficit Environmental Related Risk Factors (Infection, Risk/Actual) hospital acquired (nosocomial) Physiological Related Risk Factors (Infection, Risk/Actual) chronic illness Treatment Related Related Risk Factors (Infection, Risk/Actual) invasive procedures Signs and Symptoms (Infection, Risk/Actual) other (see comments) (No S/s at this time; continues on IV antibiotics) Goal: Infection Prevention/Resolution/Control Patient will demonstrate the desired outcomes. 05/31/141541 Infection, Risk/Actual (Adult, Obstetrics) Infection Prevention/Resolution/Control making progress toward outcome * Plan of Care - Linsey Mcintyre RN - 05/31/2014 5:53 AM EST Problem: General Plan of Care Goal: Plan of Care Review Outcome: Ongoing (Interventions Implemented as Appropriate) 05/31/14 0548 Plan of Care Review Plan of Care Outcome Status ongoing (interventions implemented as appropriate) Progress improving Coping/Psychosocial Response Interventions Plan of Care Reviewed with patient;mother OUTCOME EVALUATION NOTE: OUTCOME SUMMARY: Care assumed at 1900, resting quietly in bed with mom at bedside. Cheerful and interactive. Dressings intact with no drainage. PICC intact with IVF running. Voiding qs, still no stool since 05/25. Abdsoft with + bowel sounds. PLAN MOVING FORWARD: Continue to encourage mobilization and bowel meds. Encourage PO. Continue IV abx. INDIVIDUALIZED FALL PREVENTION: Assistance: Total care, Mom assisting with care. Supervision: RN moraima albarran. Mom at bedside all night. Surveillance: The registered nurse will be responsible for purposeful rounding on each of their patients. Purposeful rounding will address the patient's pain/comfort, safety, and presence of family/observer at bedside. Purposeful rounding performed hourly between 0800 and 1800, and every other hourbetween 2000 and 0800. CPG GOAL OUTCOME EVALUATION: Goal: Fall Prevention-Safe Patient Handling Outcome: Ongoing (Interventions Implemented as Appropriate) Goal: Infection Control Outcome: Ongoing (Interventions Implemented as Appropriate) Goal: Discharge Needs Assessment Outcome: Ongoing (Interventions Implemented as Appropriate) 05/31/14 0548 Discharge Needs Assessment Concerns to be Addressed no discharge needs identified Problem: Skin Integrity Impairment, Risk/Actual (Adult, Obstetrics) Goal: Identify Signs and Symptoms and Related Risk Factors Signs and symptoms and related risk factors are identified upon initiation of Human Response Clinical Practice Guideline (CPG) Outcome: Ongoing (Interventions Implemented as Appropriate) 05/31/14 0548 Skin Integrity Impairment, Risk/Actual Personal Related Risk Factors (Skin Integrity Impairment, Risk/Actual) developmental factors Goal: Skin Integrity/Wound Healing Patient will demonstrate the desired outcomes. Outcome: Ongoing (Interventions Implemented as Appropriate) 05/31/14 0548 Skin Integrity Impairment, Risk/Actual (Adult, Obstetrics) Skin Integrity/Wound Healing making progress toward outcome * Plan of Care - Pamella Graves - 05/30/2014 2:45 PM EST Problem: Infection, Risk/Actual (Adult, Obstetrics) Goal: Infection Prevention/Resolution/Control Patient will demonstrate the desired outcomes. Outcome: Ongoing (Interventions Implemented as Appropriate) 05/30/14 1430 Infection, Risk/Actual (Adult, Obstetrics) Infection Prevention/Resolution/Control making progress toward outcome OUTCOME EVALUATION NOTE: OUTCOME SUMMARY: Pain controlled with PRN oxycodone, FLACC score between 0-3. Neuro checks q4 hrs PERRLA, alert no change in LOC. Received scheduled IV antibiotics. Pt. Tolerated OT well and participated with AROM ofher LUE. PLAN MOVING FORWARD: Continue to monitor pain, neuro, and administer antibiotics as scheduled. INDIVIDUALIZED FALL PREVENTION: Assistance: full Supervision: full Surveillance: full CPG GOAL OUTCOME EVALUATION: * Plan of Care - Pamella Graves - 05/30/2014 2:40 PM EST Problem: Infection, Risk/Actual (Adult, Obstetrics) Goal: Infection Prevention/Resolution/Control Patient will demonstrate the desired outcomes. Outcome: Ongoing (Interventions Implemented as Appropriate) OUTCOME EVALUATION NOTE: OUTCOME SUMMARY: Pain controlled by PRN oxycodone, FLACC score 0-3. Neuro checks completed q4 hours, PERRLA and no change in LOC. Afebrile. No BM x 3 days. Poor PO continues on maintenance IV fluids. UOP 3.2 cc/kg/hr. Received scheduled IV antibiotics. Tolerated OT well and performed AROM of LUE. Turned and repositioned Q 2h, skin intact, no signs of pressure areas. PLAN MOVING FORWARD: Continue neuro checks q4 hrs, continue to monitor pain, and administer scheduled IV antibiotics. INDIVIDUALIZED FALL PREVENTION: Assistance: full Supervision: full Surveillance: full CPG GOAL OUTCOME EVALUATION: * Plan of Care - Linsey Mcintyre RN - 05/30/2014 8:24 AM EST Problem: General Plan of Care Goal: Plan of Care Review Outcome: Ongoing (Interventions Implemented as Appropriate) 05/30/14 0617 Plan of Care Review Plan of Care Outcome Status ongoing (interventions implemented as appropriate) Progress improving Coping/Psychosocial Response Interventions Plan of Care Reviewed with mother OUTCOME EVALUATION NOTE: OUTCOME SUMMARY: Care assumed at 1900, resting quietly in bed with mom at bedside. Happy and interacting with staff.PICC intact to L arm. IVF running, abx as ordered. No discomfort noted. Slept well through the night. PLAN MOVING FORWARD: Continue IV abx. Encourage mobilization and time up in wheelchair. INDIVIDUALIZED FALL PREVENTION: Assistance: Full care, mom will assist as able. Supervision: Rn checks and moraima, mom at bedside all shift. Surveillance: The registered nurse will be responsible for purposeful rounding on each of their patients. Purposeful rounding will address the patient's pain/comfort, safety, and presence of family/observer at bedside. Purposeful rounding performed hourly between 0800 and 1800, and every other hourbetween 2000 and 0800. CPG GOAL OUTCOME EVALUATION: Goal: Fall Prevention-Safe Patient Handling Outcome: Ongoing (Interventions Implemented as Appropriate) Goal: Infection Control Outcome: Ongoing (Interventions Implemented as Appropriate) Goal: Discharge Needs Assessment Outcome: Ongoing (Interventions Implemented as Appropriate) Problem: Skin Integrity Impairment, Risk/Actual (Adult, Obstetrics) Goal: Identify Signs and Symptoms and Related Risk Factors Signs and symptoms and related risk factors are identified upon initiation of Human Response Clinical Practice Guideline (CPG) Outcome: Ongoing (Interventions Implemented as Appropriate) 05/30/14616 Skin Integrity Impairment, Risk/Actual Personal Related Risk Factors (Skin Integrity Impairment, Risk/Actual) developmental factors Goal: Skin Integrity/Wound Healing Patient will demonstrate the desired outcomes. Outcome: Ongoing (Interventions Implemented as Appropriate) 05/30/14616 Skin Integrity Impairment, Risk/Actual (Adult, Obstetrics) Skin Integrity/Wound Healing making progress toward outcome Problem: Infection, Risk/Actual (Adult, Obstetrics) Goal: Identify Signs and Symptoms and Related Risk Factors Signs and symptoms and related risk factors are identified upon initiation of Human Response Clinical Practice Guideline (CPG) Outcome: Ongoing (Interventions Implemented as Appropriate) 05/30/14616 Infection, Risk/Actual Physiological Related Risk Factors (Infection, Risk/Actual) chronic illness Treatment Related Related Risk Factors (Infection, Risk/Actual) invasive procedures Goal: Infection Prevention/Resolution/Control Patient will demonstrate the desired outcomes. Outcome: Ongoing (Interventions Implemented as Appropriate) 05/30/14616 Infection, Risk/Actual (Adult, Obstetrics) Infection Prevention/Resolution/Control making progress toward outcome * Plan of Care - Doe Rios RN - 05/29/2014 6:30 PM EST Problem: General Plan of Care Goal: Plan of Care Review Outcome: Ongoing (Interventions Implemented as Appropriate) 05/29/14 06 Plan of Care Review Plan of Care Outcome Status ongoing (interventions implemented as appropriate) Progress improving Coping/Psychosocial Response Interventions Plan of Care Reviewed with mother OUTCOME EVALUATION NOTE: OUTCOME SUMMARY: VSS, afebrile. More tired today, took nap for most of morning. PICC site c/d/i. Neuro checks WDL. Mom at bedside. PLAN MOVING FORWARD: Continue plan of care as schedule. INDIVIDUALIZED FALL PREVENTION: Assistance: Fully dependent Supervision: Alarms active and audible, Mom at bedside. Surveillance: The registered nurse will be responsible for purposeful rounding on each of their patients. Purposeful rounding will address the patient's pain/comfort, safety, and presence of family/observer at bedside. Purposeful rounding performed hourly between 0800 and 1800, and every other hourbetween 2000 and 0800. CPG OUTCOME EVALUATION: Making progress towards goals . Goal: Fall Prevention-Safe Patient Handling Outcome: Ongoing (Interventions Implemented as Appropriate) 05/21/14 0805/26/14 1000 05/29/14 0603 Musculoskeletal Interventions Activity/Level of Assistance -- -- up ad stephane Positioning -- -- -- Muscle Strengthening -- -- personal routines for BADL/IADL promoted Self-Care Promotion -- -- independence encouraged while providing assistance;adaptive equipment provided;assistance provided to decrease frustration;bathing assistance provided Activity and Safety Assistive Device -- Wheelchair -- Safety Interventions Safety Precautions/Fall Reduction -- -- -- [place] Fall Risk History of Falling -- -- 0 Secondary Diagnosis -- -- 15 Ambulatory Aids -- -- 15 Intravenous Therapy/Heparin/Saline Lock -- -- 0 Gait/Transferring -- -- 20 Mental Status -- -- 0 Score -- -- 50 OTHER [place] Fall Risk High (45 and higher) -- -- 05/29/14 0805/29/14 09 Musculoskeletal Interventions Activity/Level of Assistance -- -- Positioning -- HOB up 15 degrees Muscle Strengthening -- -- Self-Care Promotion -- -- Activity and Safety Assistive Device -- -- Safety Interventions Safety Precautions/Fall Reduction environmental modification;fall reduction program maintained;family at bedside;low bed -- [place] Fall Risk History of Falling -- -- Secondary Diagnosis -- -- Ambulatory Aids -- -- Intravenous Therapy/Heparin/Saline Lock -- -- Gait/Transferring -- -- Mental Status -- -- Score -- -- OTHER [place] Fall Risk -- -- Goal: Infection Control Outcome: Ongoing (Interventions Implemented as Appropriate) 05/29/14 0900 Coping/Psychosocial Response Interventions Counseling calming techniques promoted Safety Interventions Isolation Precautions standard precautions maintained Infection Prevention nutrition promoted;rest/sleep promoted Goal: Discharge Needs Assessment Outcome: Ongoing (Interventions Implemented as Appropriate) 05/22/14 0634 05/26/14170405/27/14 1220 Discharge Needs Assessment Concerns to be Addressed -- no discharge needs identified -- Readmission Within the Last 30 Days -- clinical decline -- Equipment Needed After Discharge none -- -- Current Health Anticipated Changes Related to Illness -- none -- Living Environment Transportation Available -- -- car;family or friend will provide Self-Care Equipment Currently Used at Home -- wheelchair -- Problem: Skin Integrity Impairment, Risk/Actual (Adult, Obstetrics) Goal: Identify Signs and Symptoms and Related Risk Factors Signs and symptoms and related risk factors are identified upon initiation of Human Response Clinical Practice Guideline (CPG) Outcome: Ongoing (Interventions Implemented as Appropriate) 05/26/14170405/28/14 0506 05/29/14 06 Skin Integrity Impairment, Risk/Actual Personal Related Risk Factors (Skin Integrity Impairment, Risk/Actual) -- -- developmental factors Physiological Related Risk Factors (Skin Integrity Impairment, Risk/Actual) -- abnormal tissue growth -- Treatment Related Related Risk Factors (Skin Integrity Impairment, Risk/Actual) invasive catheters -- -- Signs and Symptoms (Skin Integrity Impairment, Risk/Actual) exudate (purulent) -- -- Goal: Skin Integrity/Wound Healing Patient will demonstrate the desired outcomes. Outcome: Ongoing (Interventions Implemented as Appropriate) 05/29/14 06 Skin Integrity Impairment, Risk/Actual (Adult, Obstetrics) Skin Integrity/Wound Healing making progress toward outcome Problem: Infection, Risk/Actual (Adult, Obstetrics) Goal: Identify Signs and Symptoms and Related Risk Factors Signs and symptoms and related risk factors are identified upon initiation of Human Response Clinical Practice Guideline (CPG) Outcome: Ongoing (Interventions Implemented as Appropriate) 05/26/14170402/15 06 Infection, Risk/Actual Personal Related Risk Factors (Infection, Risk/Actual) -- knowledge deficit Environmental Related Risk Factors (Infection, Risk/Actual) healthcare- associated;hospital acquired(nosocomial) -- Physiological Related Risk Factors (Infection, Risk/Actual) -- chronic illness Treatment Related Related Risk Factors (Infection, Risk/Actual) -- invasive procedures Signs and Symptoms (Infection, Risk/Actual) purulent drainage -- Goal: Infection Prevention/Resolution/Control Patient will demonstrate the desired outcomes. Outcome: Ongoing (Interventions Implemented as Appropriate) 05/29/14 06 Infection, Risk/Actual (Adult, Obstetrics) Infection Prevention/Resolution/Control making progress toward outcome Problem: Health Knowledge, Opportunity for Enhanced (Adult, NICU, , Obstetrics, Pediatric) Goal: Identify Signs and Symptoms and Related Risk Factors Signs and symptoms and related risk factors are identified upon initiation of Human Response Clinical Practice Guideline (CPG) Outcome: Ongoing (Interventions Implemented as Appropriate) 05/28/14 1727 Health Knowledge, Opportunity for Enhanced Personal Related Risk Factors (Health Knowledge, Opportunity for Enhanced) communication obstacles Physiological Related Risk Factors (Health Knowledge, Opportunity for Enhanced) cognitive limitation;developmental disability * Plan of Care - Leana Hicks RN - 05/29/2014 6:08 AM EST Problem: General Plan of Care Goal: Plan of Care Review 05/29/14 06 Plan of Care Review Plan of Care Outcome Status ongoing (interventions implemented as appropriate) Progress improving Coping/Psychosocial Response Interventions Plan of Care Reviewed with mother Goal: Fall Prevention-Safe Patient Handling 05/29/14 06 Musculoskeletal Interventions Activity/Level of Assistance up ad stephane Muscle Strengthening personal routines for BADL/IADL promoted Self-Care Promotion independence encouraged while providing assistance;adaptive equipment provided;assistance provided to decrease frustration;bathing assistance provided Safety Interventions Safety Precautions/Fall Reduction lighting adjusted for task/safety;room near unit station;fall reduction program maintained;family at bedside [place] Fall Risk History of Falling 0 Secondary Diagnosis 15 Ambulatory Aids 15 Intravenous Therapy/Heparin/Saline Lock 0 Gait/Transferring 20 Mental Status 0 Score 50 Goal: Infection Control 05/29/14 06 Coping/Psychosocial Response Interventions Counseling calming techniques promoted;reassurance provided;understanding of situation facilitated Safety Interventions Infection Prevention rest/sleep promoted;promote handwashing;nutrition promoted;hydration promoted Problem: Skin Integrity Impairment, Risk/Actual (Adult, Obstetrics) Goal: Identify Signs and Symptoms and Related Risk Factors Signs and symptoms and related risk factors are identified upon initiation of Human Response Clinical Practice Guideline (CPG) 05/29/14602 Skin Integrity Impairment, Risk/Actual Personal Related Risk Factors (Skin Integrity Impairment, Risk/Actual) developmental factors Goal: Skin Integrity/Wound Healing Patient will demonstrate the desired outcomes. 05/29/14602 Skin Integrity Impairment, Risk/Actual (Adult, Obstetrics) Skin Integrity/Wound Healing making progress toward outcome Problem: Infection, Risk/Actual (Adult, Obstetrics) Goal: Identify Signs and Symptoms and Related Risk Factors Signs and symptoms and related risk factors are identified upon initiation of Human Response Clinical Practice Guideline (CPG) 05/29/14602 Infection, Risk/Actual Personal Related Risk Factors (Infection, Risk/Actual) knowledge deficit Physiological Related Risk Factors (Infection, Risk/Actual) chronic illness Treatment Related Related Risk Factors (Infection, Risk/Actual) invasive procedures Goal: Infection Prevention/Resolution/Control Patient will demonstrate the desired outcomes. 05/29/14602 Infection, Risk/Actual (Adult, Obstetrics) Infection Prevention/Resolution/Control making progress toward outcome OUTCOME EVALUATION NOTE: OUTCOME SUMMARY: Nearing outcome goals. Has remained afebrile. No growth of cultures to date. Need for pain meds decreasing. Physical exaqm negative for an acute infectious process. 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 INDIVIDUALIZED FALL PREVENTION: Assistance: 2 Assist Supervision: Mom and RN Surveillance: The registered nurse will be responsible for purposeful rounding on each of their patients. Purposeful rounding will address the patient's pain/comfort, safety, and presence of family/observer at bedside. Purposeful rounding performed hourly between 0800 and 1800, and every other hourbetween 2000 and 0800. CPG GOAL OUTCOME EVALUATION: As stated above. * Plan of Care - Doe Rios RN - 05/28/2014 5:30 PM EST Problem: General Plan of Care Goal: Plan of Care Review Outcome: Ongoing (Interventions Implemented as Appropriate) 05/25/14 0527 05/26/14 1705 Plan of Care Review Plan of Care Outcome Status ongoing (interventions implemented as appropriate) -- Progress -- improving Coping/Psychosocial Response Interventions Plan of Care Reviewed with -- patient;mother OUTCOME EVALUATION NOTE: OUTCOME SUMMARY: VSS, afebrile. CARMELLA drain removed this afternoon. Dressings all c/d/i. PICC patent, dressing also c/d/i. Voiding adequately, no stool this shift. Oxycodone for comfort. Mom at bedside, family in to visit this evening. PLAN MOVING FORWARD: Continue IV abx therapy as ordered. INDIVIDUALIZED FALL PREVENTION: Assistance: Full assist Supervision: Alarms active and audible, Mom at bedside. Surveillance: The registered nurse will be responsible for purposeful rounding on each of their patients. Purposeful rounding will address the patient's pain/comfort, safety, and presence of family/observer at bedside. Purposeful rounding performed hourly between 0800 and 1800, and every other hourbetween 1999 and 08. CPG OUTCOME EVALUATION: Making progress towards goals. Goal: Fall Prevention-Safe Patient Handling Outcome: Ongoing (Interventions Implemented as Appropriate) 05/21/14 0800 05/26/14 1000 05/26/14 1705 Musculoskeletal Interventions Activity/Level of Assistance -- -- -- Positioning -- -- -- Self-Care Promotion -- -- -- Activity and Safety Assistive Device -- Wheelchair -- Safety Interventions Safety Precautions/Fall Reduction -- -- -- [place] Fall Risk History of Falling 0 -- -- Secondary Diagnosis -- -- 15 Ambulatory Aids -- -- 0 Intravenous Therapy/Heparin/Saline Lock -- -- 20 Gait/Transferring -- -- 0 Mental Status -- -- 15 Score -- -- 50 OTHER Woodall Fall Risk High (45 and higher) -- -- 05/26/14201305/28/14 0416 05/28/14 0830 Musculoskeletal Interventions Activity/Level of Assistance -- with 2-person assist -- Positioning -- -- HOB up 15 degrees Self-Care Promotion hygiene assistance provided -- -- Activity and Safety Assistive Device -- -- -- Safety Interventions Safety Precautions/Fall Reduction -- -- environmental modification;fall reduction program maintained;family at bedside;low bed Wood[place] Fall Risk History of Falling -- -- -- Secondary Diagnosis -- -- -- Ambulatory Aids -- -- -- Intravenous Therapy/Heparin/Saline Lock -- -- -- Gait/Transferring -- -- -- Mental Status -- -- -- Score -- -- -- OTHER [place] Fall Risk -- -- -- Goal: Infection Control Outcome: Ongoing (Interventions Implemented as Appropriate) 05/26/14201305/28/14 0830 Coping/Psychosocial Response Interventions Counseling emotional support provided;calming techniques promoted;personal strengths integrated;reassurance provided;understanding of situation facilitated;relaxation techniques promoted;verbalization of feelings encouraged -- Safety Interventions Isolation Precautions -- standard precautions maintained Infection Prevention -- hydration promoted;nutrition promoted;rest/sleep promoted Goal: Discharge Needs Assessment Outcome: Ongoing (Interventions Implemented as Appropriate) 05/22/14 0634 05/26/14170405/27/14 1220 Discharge Needs Assessment Concerns to be Addressed -- no discharge needs identified -- Readmission Within the Last 30 Days -- clinical decline -- Equipment Needed After Discharge none -- -- Current Health Anticipated Changes Related to Illness -- none -- Living Environment Transportation Available -- -- car;family or friend will provide Self-Care Equipment Currently Used at Home -- wheelchair -- Problem: Skin Integrity Impairment, Risk/Actual (Adult, Obstetrics) Goal: Identify Signs and Symptoms and Related Risk Factors Signs and symptoms and related risk factors are identified upon initiation of Human Response Clinical Practice Guideline (CPG) Outcome: Ongoing (Interventions Implemented as Appropriate) 05/26/14170405/28/14 0506 Skin Integrity Impairment, Risk/Actual Personal Related Risk Factors (Skin Integrity Impairment, Risk/Actual) -- developmental factors Physiological Related Risk Factors (Skin Integrity Impairment, Risk/Actual) -- abnormal tissue growth Treatment Related Related Risk Factors (Skin Integrity Impairment, Risk/Actual) invasive catheters -- Signs and Symptoms (Skin Integrity Impairment, Risk/Actual) exudate (purulent) -- Goal: Skin Integrity/Wound Healing Patient will demonstrate the desired outcomes. Outcome: Ongoing (Interventions Implemented as Appropriate) Problem: Infection, Risk/Actual (Adult, Obstetrics) Goal: Identify Signs and Symptoms and Related Risk Factors Signs and symptoms and related risk factors are identified upon initiation of Human Response Clinical Practice Guideline (CPG) Outcome: Ongoing (Interventions Implemented as Appropriate) 05/26/14170401/15 0506 Infection, Risk/Actual Personal Related Risk Factors (Infection, Risk/Actual) malnutrition;stress -- Environmental Related Risk Factors (Infection, Risk/Actual) healthcare- associated;hospital acquired(nosocomial) -- Physiological Related Risk Factors (Infection, Risk/Actual) -- chronic illness Treatment Related Related Risk Factors (Infection, Risk/Actual) -- invasive procedures Signs and Symptoms (Infection, Risk/Actual) purulent drainage -- Goal: Infection Prevention/Resolution/Control Patient will demonstrate the desired outcomes. Outcome: Ongoing (Interventions Implemented as Appropriate) 05/28/14 1727 Infection, Risk/Actual (Adult, Obstetrics) Infection Prevention/Resolution/Control making progress toward outcome Problem: Health Knowledge, Opportunity for Enhanced (Adult, NICU, , Obstetrics, Pediatric) Goal: Identify Signs and Symptoms and Related Risk Factors Signs and symptoms and related risk factors are identified upon initiation of Human Response Clinical Practice Guideline (CPG) Outcome: Ongoing (Interventions Implemented as Appropriate) 05/28/14 1727 Health Knowledge, Opportunity for Enhanced Personal Related Risk Factors (Health Knowledge, Opportunity for Enhanced) communication obstacles Physiological Related Risk Factors (Health Knowledge, Opportunity for Enhanced) cognitive limitation;developmental disability * Consult Note - Elmer Tobin, PharmD - 05/28/2014 11:04 AM EST Clinical Pharmacist Note-Vancomycin Tana Shelton [id number] 1995 Tana Shelton is a 18 y.o. female receiving vancomycin 1g q8h with a targeted goal of 15 - 20 mcg/mL. The following Pharmacokinetic data has been evaluated: Vanc Trough (mg/L) Date Value 05/28/2014 16.5 Creatinine (mg/dL) Date Value 05/28/2014 0.29* Estimated Creatinine Clearance: 232.5 mL/min (based on Cr of 0.29). (Cockcroft & Gault calculation) Dosing recommendations: ??? No change in vancomycin dose or dosing interval at this time. Monitoring recommendations: ??? Recheck vancomycin trough level (30 minutes prior to a scheduled dose) if significant changes in SCr, BUN or fluid status occur; otherwise recheck serum trough levels (30 minutes prior to a scheduled dose) in 5-7 days. We will continue to monitor the patient as long as he/she remains on vancomycin therapy. Please watch SCr, BUN and fluid status closely. Please page the care area pharmacist with any questions you may have. Alternately, during off-hours you may call [phone] to contact a pharmacist. Elmer Tobin PHARMD Pager [phone] * Plan of Care - Leana Hicks RN - 05/28/2014 5:07 AM EST Problem: General Plan of Care Goal: Plan of Care Review OUTCOME EVALUATION NOTE: OUTCOME SUMMARY: Nearing outcome goals. Output for CARMELLA drain minimal. Dressing dry. Afeb with stableVs. One episode of pain requiring dilaudid with good affect. PLAN MOVING FORWARD: Continued monitoring and assessment. INDIVIDUALIZED FALL PREVENTION: Assistance: Full assist Supervision: Mom and RN Surveillance: The registered nurse will be responsible for purposeful rounding on each of their patients. Purposeful rounding will address the patient's pain/comfort, safety, and presence of family/observer at bedside. Purposeful rounding performed hourly between 0800 and 1800, and every other hourbetween 2000 and 0800. CPG GOAL OUTCOME EVALUATION: Nearing outcome goals Problem: Skin Integrity Impairment, Risk/Actual (Adult, Obstetrics) Goal: Identify Signs and Symptoms and Related Risk Factors Signs and symptoms and related risk factors are identified upon initiation of Human Response Clinical Practice Guideline (CPG) 05/28/14 0506 Skin Integrity Impairment, Risk/Actual Personal Related Risk Factors (Skin Integrity Impairment, Risk/Actual) developmental factors Physiological Related Risk Factors (Skin Integrity Impairment, Risk/Actual) abnormal tissue growth Goal: Skin Integrity/Wound Healing Patient will demonstrate the desired outcomes. 05/28/14 0506 Skin Integrity Impairment, Risk/Actual (Adult, Obstetrics) Skin Integrity/Wound Healing making progress toward outcome Problem: Infection, Risk/Actual (Adult, Obstetrics) Goal: Identify Signs and Symptoms and Related Risk Factors Signs and symptoms and related risk factors are identified upon initiation of Human Response Clinical Practice Guideline (CPG) 05/28/14 0506 Infection, Risk/Actual Physiological Related Risk Factors (Infection, Risk/Actual) chronic illness Treatment Related Related Risk Factors (Infection, Risk/Actual) invasive procedures Goal: Infection Prevention/Resolution/Control Patient will demonstrate the desired outcomes. 05/28/14 0506 Infection, Risk/Actual (Adult, Obstetrics) Infection Prevention/Resolution/Control making progress toward outcome * Plan of Care - Doe Rios RN - 05/27/2014 5:23 PM EST Problem: General Plan of Care Goal: Plan of Care Review Outcome: Ongoing (Interventions Implemented as Appropriate) 05/25/14 0527 05/26/14 170 Plan of Care Review Plan of Care Outcome Status ongoing (interventions implemented as appropriate) -- Progress -- improving Coping/Psychosocial Response Interventions Plan of Care Reviewed with -- patient;mother OUTCOME EVALUATION NOTE: OUTCOME SUMMARY: VSS, afebrile. LR bolus given this AM. Vancomycin and PO cipro started, well tolerated. CARMELLA drain putting out small serosanginous drainage. In good spirits today, Mom at bedside. PLAN MOVING FORWARD: Continue abx regimen as ordered. INDIVIDUALIZED FALL PREVENTION: Assistance: Dependent. Supervision: Alarms active and audible, Mom at bedside. Surveillance: The registered nurse will be responsible for purposeful rounding on each of their patients. Purposeful rounding will address the patient's pain/comfort, safety, and presence of family/observer at bedside. Purposeful rounding performed hourly between 0800 and 1800, and every other hourbetween 2000 and 0800. CPG OUTCOME EVALUATION: Making progress towards goals. Goal: Fall Prevention-Safe Patient Handling Outcome: Ongoing (Interventions Implemented as Appropriate) 05/21/14 0805/26/14 1000 05/26/14 1705 Musculoskeletal Interventions Activity/Level of Assistance -- -- -- Positioning -- -- -- Self-Care Promotion -- -- -- Activity and Safety Assistive Device -- Wheelchair -- Safety Interventions Safety Precautions/Fall Reduction -- -- -- [place] Fall Risk History of Falling 0 -- -- Secondary Diagnosis -- -- 15 Ambulatory Aids -- -- 0 Intravenous Therapy/Heparin/Saline Lock -- -- 20 Gait/Transferring -- -- 0 Mental Status -- -- 15 Score -- -- 50 OTHER [place] Fall Risk High (45 and higher) -- -- 05/26/14201305/27/14 0800 05/27/14 1000 Musculoskeletal Interventions Activity/Level of Assistance -- -- with 2-person assist Positioning -- -- -- Self-Care Promotion hygiene assistance provided -- -- Activity and Safety Assistive Device -- -- -- Safety Interventions Safety Precautions/Fall Reduction -- environmental modification;family at bedside;low bed -- [place] Fall Risk History of Falling -- -- -- Secondary Diagnosis -- -- -- Ambulatory Aids -- -- -- Intravenous Therapy/Heparin/Saline Lock -- -- -- Gait/Transferring -- -- -- Mental Status -- -- -- Score -- -- -- OTHER [place] Fall Risk -- -- -- 05/27/14 1400 Musculoskeletal Interventions Activity/Level of Assistance -- Positioning HOB up 30 degrees Self-Care Promotion -- Activity and Safety Assistive Device -- Safety Interventions Safety Precautions/Fall Reduction -- [place] Fall Risk History of Falling -- Secondary Diagnosis -- Ambulatory Aids -- Intravenous Therapy/Heparin/Saline Lock -- Gait/Transferring -- Mental Status -- Score -- OTHER [place] Fall Risk -- Goal: Infection Control Outcome: Ongoing (Interventions Implemented as Appropriate) 05/26/14201305/27/14 0800 Coping/Psychosocial Response Interventions Counseling emotional support provided;calming techniques promoted;personal strengths integrated;reassurance provided;understanding of situation facilitated;relaxation techniques promoted;verbalization of feelings encouraged -- Safety Interventions Isolation Precautions -- standard precautions maintained Infection Prevention environmental surveillance;hydration promoted;nutrition promoted;rest/sleep promoted -- Goal: Discharge Needs Assessment Outcome: Ongoing (Interventions Implemented as Appropriate) 05/22/14 0634 05/26/14 1705 05/27/14 1220 Discharge Needs Assessment Concerns to be Addressed -- no discharge needs identified -- Readmission Within the Last 30 Days -- clinical decline -- Equipment Needed After Discharge none -- -- Current Health Anticipated Changes Related to Illness -- none -- Living Environment Transportation Available -- -- car;family or friend will provide Self-Care Equipment Currently Used at Home -- wheelchair -- Problem: Skin Integrity Impairment, Risk/Actual (Adult, Obstetrics) Goal: Identify Signs and Symptoms and Related Risk Factors Signs and symptoms and related risk factors are identified upon initiation of Human Response Clinical Practice Guideline (CPG) Outcome: Ongoing (Interventions Implemented as Appropriate) 05/26/14 1705 Skin Integrity Impairment, Risk/Actual Personal Related Risk Factors (Skin Integrity Impairment, Risk/Actual) developmental factors Physiological Related Risk Factors (Skin Integrity Impairment, Risk/Actual) abnormal tissue growth;edema;sensory impairment Treatment Related Related Risk Factors (Skin Integrity Impairment, Risk/Actual) invasive catheters Signs and Symptoms (Skin Integrity Impairment, Risk/Actual) exudate (purulent) Goal: Skin Integrity/Wound Healing Patient will demonstrate the desired outcomes. Outcome: Ongoing (Interventions Implemented as Appropriate) 05/27/14 0759 Skin Integrity Impairment, Risk/Actual (Adult, Obstetrics) Skin Integrity/Wound Healing making progress toward outcome Problem: Infection, Risk/Actual (Adult, Obstetrics) Goal: Identify Signs and Symptoms and Related Risk Factors Signs and symptoms and related risk factors are identified upon initiation of Human Response Clinical Practice Guideline (CPG) Outcome: Ongoing (Interventions Implemented as Appropriate) 05/21/14 0549 05/26/14 1705 Infection, Risk/Actual Personal Related Risk Factors (Infection, Risk/Actual) -- malnutrition;stress Environmental Related Risk Factors (Infection, Risk/Actual) -- healthcare- associated;hospital acquired (nosocomial) Physiological Related Risk Factors (Infection, Risk/Actual) -- chronic illness;implanted device Treatment Related Related Risk Factors (Infection, Risk/Actual) invasive device/lines/tubes -- Signs and Symptoms (Infection, Risk/Actual) -- purulent drainage Goal: Infection Prevention/Resolution/Control Patient will demonstrate the desired outcomes. Outcome: Ongoing (Interventions Implemented as Appropriate) 05/27/14 0759 Infection, Risk/Actual (Adult, Obstetrics) Infection Prevention/Resolution/Control making progress toward outcome Problem: Health Knowledge, Opportunity for Enhanced (Adult, NICU, , Obstetrics, Pediatric) Goal: Identify Signs and Symptoms and Related Risk Factors Signs and symptoms and related risk factors are identified upon initiation of Human Response Clinical Practice Guideline (CPG) Outcome: Ongoing (Interventions Implemented as Appropriate) * Plan of Care - Angelica Rosario RN - 05/27/2014 8:10 AM EST Problem: General Plan of Care Goal: Plan of Care Review Outcome: Ongoing (Interventions Implemented as Appropriate) 05/25/14 0527 05/26/14 1705 Plan of Care Review Plan of Care Outcome Status ongoing (interventions implemented as appropriate) -- Progress -- improving Coping/Psychosocial Response Interventions Plan of Care Reviewed with -- patient;mother OUTCOME EVALUATION NOTE: OUTCOME SUMMARY: BPs overnight 82-84/46-51, with decreased urine output, decreased intake in the beginning of the shift MD Jessee pastrana. 1000 mL NS bolus X 1 administered, with + large void (see flowsheets), no BM thisshift. Pain controlled overnight with PRN Tylenol suppositories and IV Dilaudid. Pt sleeping through cares. Neuro checks intact; +CSMT. Labs drawn per orders. CARMELLA drain to back incision with 6mL of tenorio guinous drainage overnight; all dressings C,D,I. Pt turned & repositioned off pressure points. Mother present at bedside; updated on and involved in the plan of care. PLAN MOVING FORWARD: Ongoing, cont IVABX per orders. Monitor for s/s of infection. Control pain. Support pt and mother throughout this hospitalization. INDIVIDUALIZED FALL PREVENTION: Assistance: All cares. Supervision: Moraima younger. Mother present at bedside; updated on and involved in the plan of care. Surveillance: The registered nurse will be responsible for purposeful rounding on each of their patients. Purposeful rounding will address the patient's pain/comfort, safety, and presence of family/observer at bedside. Purposeful rounding performed hourly between 0800 and 1800, and every other hourbetween 2000 and 0800. CPG GOAL OUTCOME EVALUATION: Ongoing, course of IVAB, monitoring for s/s of further infection. Goal: Fall Prevention-Safe Patient Handling Outcome: Ongoing (Interventions Implemented as Appropriate) 05/21/14 0800 05/26/14 1000 05/26/14 170 Musculoskeletal Interventions Activity/Level of Assistance -- -- -- Positioning -- -- -- Self-Care Promotion -- -- -- Activity and Safety Assistive Device -- Wheelchair -- Safety Interventions Safety Precautions/Fall Reduction -- -- -- [place] Fall Risk History of Falling 0 -- -- Secondary Diagnosis -- -- 15 Ambulatory Aids -- -- 0 Intravenous Therapy/Heparin/Saline Lock -- -- 20 Gait/Transferring -- -- 0 Mental Status -- -- 15 Score -- -- 50 OTHER [place] Fall Risk High (45 and higher) -- -- 05/26/14201305/27/14 0545 Musculoskeletal Interventions Activity/Level of Assistance -- with 2-person assist Positioning -- HOB up 15 degrees Self-Care Promotion hygiene assistance provided -- Activity and Safety Assistive Device -- -- Safety Interventions Safety Precautions/Fall Reduction environmental modification;family at bedside;low bed;lighting adjusted for task/safety -- [place] Fall Risk History of Falling -- -- Secondary Diagnosis -- -- Ambulatory Aids -- -- Intravenous Therapy/Heparin/Saline Lock -- -- Gait/Transferring -- -- Mental Status -- -- Score -- -- OTHER [place] Fall Risk -- -- Goal: Infection Control Outcome: Ongoing (Interventions Implemented as Appropriate) 05/26/142013 Coping/Psychosocial Response Interventions Counseling emotional support provided;calming techniques promoted;personal strengths integrated;reassurance provided;understanding of situation facilitated;relaxation techniques promoted;verbalization of feelings encouraged Safety Interventions Isolation Precautions standard precautions maintained Infection Prevention environmental surveillance;hydration promoted;nutrition promoted;rest/sleep promoted Goal: Discharge Needs Assessment Outcome: Ongoing (Interventions Implemented as Appropriate) 05/22/14 0634 05/26/14 1705 Discharge Needs Assessment Concerns to be Addressed -- no discharge needs identified Readmission Within the Last 30 Days -- clinical decline Equipment Needed After Discharge none -- Current Health Anticipated Changes Related to Illness -- none Living Environment Transportation Available -- car;family or friend will provide Self-Care Equipment Currently Used at Home -- wheelchair Problem: Skin Integrity Impairment, Risk/Actual (Adult, Obstetrics) Goal: Identify Signs and Symptoms and Related Risk Factors Signs and symptoms and related risk factors are identified upon initiation of Human Response Clinical Practice Guideline (CPG) Outcome: Ongoing (Interventions Implemented as Appropriate) 05/26/14 1705 Skin Integrity Impairment, Risk/Actual Personal Related Risk Factors (Skin Integrity Impairment, Risk/Actual) developmental factors Physiological Related Risk Factors (Skin Integrity Impairment, Risk/Actual) abnormal tissue growth;edema;sensory impairment Treatment Related Related Risk Factors (Skin Integrity Impairment, Risk/Actual) invasive catheters Goal: Skin Integrity/Wound Healing Patient will demonstrate the desired outcomes. Outcome: Ongoing (Interventions Implemented as Appropriate) 05/27/14 0759 Skin Integrity Impairment, Risk/Actual (Adult, Obstetrics) Skin Integrity/Wound Healing making progress toward outcome Problem: Infection, Risk/Actual (Adult, Obstetrics) Goal: Identify Signs and Symptoms and Related Risk Factors Signs and symptoms and related risk factors are identified upon initiation of Human Response Clinical Practice Guideline (CPG) Outcome: Ongoing (Interventions Implemented as Appropriate) 05/21/14 0549 05/26/14 1705 Infection, Risk/Actual Personal Related Risk Factors (Infection, Risk/Actual) -- malnutrition;stress Environmental Related Risk Factors (Infection, Risk/Actual) -- healthcare- associated;hospital acquired (nosocomial) Physiological Related Risk Factors (Infection, Risk/Actual) -- chronic illness;implanted device Treatment Related Related Risk Factors (Infection, Risk/Actual) invasive device/lines/tubes -- Goal: Infection Prevention/Resolution/Control Patient will demonstrate the desired outcomes. Outcome: Ongoing (Interventions Implemented as Appropriate) 05/27/14 0759 Infection, Risk/Actual (Adult, Obstetrics) Infection Prevention/Resolution/Control making progress toward outcome Problem: Fall/Trauma/Injury Risk (Pediatric) Goal: Identify Signs and Symptoms and Related Risk Factors Signs and symptoms and related risk factors are identified upon initiation of Human Response Clinical Practice Guideline (CPG) Outcome: Outcome (s) achieved Date Met: 05/27/14 05/22/14202905/25/14 174 Fall/Trauma/Injury Risk Personal Related Risk Factors (Fall/Trauma/Injury Risk) gait/mobility problems/weakness -- Physiological Related Risk Factors (Fall/Trauma/Injury Risk) -- developmental disability;incontinence;neurologic alteration;neuromuscular alteration Treatment Related Related Risk Factors (Fall/Trauma/Injury Risk) -- invasive/noninvasive equipment;medication;bed rest Signs and Symptoms (Fall/Trauma/Injury Risk) -- presence of risk factors Problem: Health Knowledge, Opportunity for Enhanced (Adult, NICU, Conrad, Obstetrics, Pediatric) Goal: Identify Signs and Symptoms and Related Risk Factors Signs and symptoms and related risk factors are identified upon initiation of Human Response Clinical Practice Guideline (CPG) Outcome: Ongoing (Interventions Implemented as Appropriate) * Plan of Care - Amarilis Velasco RN - 05/26/2014 5:30 PM EST Problem: General Plan of Care Goal: Plan of Care Review Outcome: Ongoing (Interventions Implemented as Appropriate) 05/26/14 1705 Plan of Care Review Progress improving Coping/Psychosocial Response Interventions Plan of Care Reviewed with patient;mother OUTCOME EVALUATION NOTE: OUTCOME SUMMARY: Wound on back green discharge, CT scan completed currently in the OR having wound explored PLAN MOVING FORWARD: Continue on current antibiotics as ordered INDIVIDUALIZED FALL PREVENTION: Assistance: Total care full assist Supervision: RN and mother Surveillance: Purposeful hourly rounding CPG GOAL OUTCOME EVALUATION: Goal: Fall Prevention-Safe Patient Handling Outcome: Ongoing (Interventions Implemented as Appropriate) 05/21/14 0800 05/25/14 0527 05/26/14 1000 Musculoskeletal Interventions Activity/Level of Assistance -- -- -- Positioning -- -- -- Self-Care Promotion -- bathing assistance provided;feeding assistance provided -- Activity and Safety Assistive Device -- -- Wheelchair Safety Interventions Safety Precautions/Fall Reduction -- -- -- Woodall Fall Risk History of Falling 0 -- -- Secondary Diagnosis -- -- -- Ambulatory Aids -- -- -- Intravenous Therapy/Heparin/Saline Lock -- -- -- Gait/Transferring -- -- -- Mental Status -- -- -- Score -- -- -- 05/26/141704 Musculoskeletal Interventions Activity/Level of Assistance bed rest Positioning HOB up 15 degrees Self-Care Promotion -- Activity and Safety Assistive Device -- Safety Interventions Safety Precautions/Fall Reduction environmental modification;family at bedside;low bed Woodall Fall Risk History of Falling -- Secondary Diagnosis 15 Ambulatory Aids 0 Intravenous Therapy/Heparin/Saline Lock 20 Gait/Transferring 0 Mental Status 15 Score 50 Goal: Infection Control Outcome: Ongoing (Interventions Implemented as Appropriate) 05/26/141704 Coping/Psychosocial Response Interventions Counseling emotional support provided Safety Interventions Isolation Precautions standard precautions maintained Infection Prevention environmental surveillance Goal: Discharge Needs Assessment Outcome: Ongoing (Interventions Implemented as Appropriate) 05/26/141704 Discharge Needs Assessment Concerns to be Addressed no discharge needs identified Readmission Within the Last 30 Days clinical decline Current Health Anticipated Changes Related to Illness none Living Environment Transportation Available car;family or friend will provide Self-Care Equipment Currently Used at Home wheelchair Problem: Skin Integrity Impairment, Risk/Actual (Adult, Obstetrics) Goal: Identify Signs and Symptoms and Related Risk Factors Signs and symptoms and related risk factors are identified upon initiation of Human Response Clinical Practice Guideline (CPG) 05/26/141704 Skin Integrity Impairment, Risk/Actual Personal Related Risk Factors (Skin Integrity Impairment, Risk/Actual) developmental factors Physiological Related Risk Factors (Skin Integrity Impairment, Risk/Actual) abnormal tissue growth;edema;sensory impairment Treatment Related Related Risk Factors (Skin Integrity Impairment, Risk/Actual) invasive catheters Signs and Symptoms (Skin Integrity Impairment, Risk/Actual) exudate (purulent) Goal: Skin Integrity/Wound Healing Patient will demonstrate the desired outcomes. Outcome: Ongoing (Interventions Implemented as Appropriate) 05/26/14 1705 Skin Integrity Impairment, Risk/Actual (Adult, Obstetrics) Skin Integrity/Wound Healing unable to achieve outcome Problem: Infection, Risk/Actual (Adult, Obstetrics) Goal: Identify Signs and Symptoms and Related Risk Factors Signs and symptoms and related risk factors are identified upon initiation of Human Response Clinical Practice Guideline (CPG) Outcome: Ongoing (Interventions Implemented as Appropriate) 05/26/14 1705 Infection, Risk/Actual Personal Related Risk Factors (Infection, Risk/Actual) malnutrition;stress Environmental Related Risk Factors (Infection, Risk/Actual) healthcare- associated;hospital acquired(nosocomial) Physiological Related Risk Factors (Infection, Risk/Actual) chronic illness;implanted device Signs and Symptoms (Infection, Risk/Actual) purulent drainage Goal: Infection Prevention/Resolution/Control Patient will demonstrate the desired outcomes. Outcome: Ongoing (Interventions Implemented as Appropriate) 05/26/14 1705 Infection, Risk/Actual (Adult, Obstetrics) Infection Prevention/Resolution/Control unable to achieve outcome * Op Note - Freddy Burciaga MD - 05/26/2014 4:52 PM EST [facility] [place] Operative Note Patient Name: Tana Shelton : [id number] MR#: [id number] Case Date: 05/26/2014 Surgeon: Surgeon(s) and Role: * Freddy Burciaga MD - Primary * Dayday Humphrey MD - Resident-Surgeon Chief * Darius Maguire MD - Resident-Surgeon Mauricio Preoperative diagnosis: abscess; remove possible retained catheter Postoperative diagnosis: * No post-op diagnosis entered * Procedure(s): @I & D, OPEN, DEEP ABSCESS, LUMBAR, SACRAL, LUMBOSACRAL Procedure is washout of infected lumbar and flank wounds. Indications: Ms. Shelton is status post a previous washout of an infection, is found to have active drainage both from her lumbar incision and the two flank incisions. She is brought back to the Operating Room for a washout. Operative Findings: There was purulent material at all three incisions. Deep cultures were sent from each incision. Description of the Operative Procedure: The patient was brought to the Operating Room and general endotracheal anesthesia induced. She was placed in the lateral decubitus position with the left side down on a beanbag. A maxillary roll was placed. The right flank and lumbar region were prepped and draped in the usual sterile fashion. An appropriate time out was performed. The previous sutures were removed and all three wounds explored. Purulent material was encountered in the deep tissues. Swabs were sent. All incisions were irrigated copiously. No foreign bodies were evident within the field. The previous suture line at the catheter site was inspected and Valsalva performed. No CSF egress was noted. At this point, the decision was made to close. A small round CARMELLA drain was left within the lumbar cavity. The wounds were closed in layers with interrupted Vicryl suture and the skin closed with a running nylon. Sterile dressings were applied and the patient brought to the Recovery Area. Attestation: Case Date: 05/26/2014 I was present and I participated during the entire procedure (does not need to include opening and closing). Freddy Burciaga MD 05/26/2014 * Plan of Care - Ольга Flores RN - 05/26/2014 4:56 AM EST Problem: General Plan of Care Goal: Plan of Care Review Outcome: Ongoing (Interventions Implemented as Appropriate) 05/25/14 0527 05/26/14 0450 Plan of Care Review Plan of Care Outcome Status ongoing (interventions implemented as appropriate) -- Progress improving -- Coping/Psychosocial Response Interventions Plan of Care Reviewed with -- patient;mother OUTCOME EVALUATION NOTE: OUTCOME SUMMARY: Pt afebrile. VSS. IVAB continued. Vascular access in to do PICC line education with mother. PICC line WDL. Dressing intact, scant amount of serosanguineous drainage. Neuro checks appropriate. Will continue to monitor. PLAN MOVING FORWARD: Continue IVAB and monitor neurological status. Assess for S/S of infection. Possible discharge. INDIVIDUALIZED FALL PREVENTION: Assistance: Assistance with ADLs and repositioning Supervision: mother at bedside, active in care Surveillance: The registered nurse will be responsible for purposeful rounding on each of their patients. Purposeful rounding will address the patient's pain/comfort, safety, and presence of family/observer at bedside. Purposeful rounding performed hourly between 0800 and 1800, and every other hourbetween 2000 and 0800. CPG GOAL OUTCOME EVALUATION: Goal: Fall Prevention-Safe Patient Handling Outcome: Ongoing (Interventions Implemented as Appropriate) 05/21/14 0800 05/25/14 0527 05/25/14 0900 Musculoskeletal Interventions Activity/Level of Assistance -- -- bed rest Positioning -- -- -- Self-Care Promotion -- bathing assistance provided;feeding assistance provided -- Activity and Safety Assistive Device -- Wheelchair -- Woodall Fall Risk History of Falling 0 -- -- Secondary Diagnosis 15 -- -- Ambulatory Aids 0 -- -- Intravenous Therapy/Heparin/Saline Lock 20 -- -- Gait/Transferring 0 -- -- Mental Status 15 -- -- Score 50 -- -- OTHER Woodall Fall Risk High (45 and higher) -- -- Safety Interventions Safety Precautions/Fall Reduction -- -- -- 05/25/14 2100 Musculoskeletal Interventions Activity/Level of Assistance -- Positioning HOB up 15 degrees Self-Care Promotion -- Activity and Safety Assistive Device -- Woodall Fall Risk History of Falling -- Secondary Diagnosis -- Ambulatory Aids -- Intravenous Therapy/Heparin/Saline Lock -- Gait/Transferring -- Mental Status -- Score -- OTHER Woodall Fall Risk -- Safety Interventions Safety Precautions/Fall Reduction fall reduction program maintained;environmental modification;family at bedside;lighting adjusted for task/safety;low bed Goal: Infection Control Outcome: Ongoing (Interventions Implemented as Appropriate) 05/25/14 2100 Coping/Psychosocial Response Interventions Counseling calming techniques promoted Safety Interventions Isolation Precautions standard precautions maintained Infection Prevention hydration promoted;nutrition promoted;promote handwashing;rest/sleep promoted Goal: Discharge Needs Assessment Outcome: Ongoing (Interventions Implemented as Appropriate) 05/22/14 0634 05/24/14 9194 Discharge Needs Assessment Concerns to be Addressed no discharge needs identified -- Readmission Within the Last 30 Days clinical decline -- Equipment Needed After Discharge none -- Current Health Anticipated Changes Related to Illness none -- Living Environment Transportation Available family or friend will provide;car -- Self-Care Equipment Currently Used at Home -- wheelchair Problem: Skin Integrity Impairment, Risk/Actual (Adult, Obstetrics) Goal: Identify Signs and Symptoms and Related Risk Factors Signs and symptoms and related risk factors are identified upon initiation of Human Response Clinical Practice Guideline (CPG) Outcome: Ongoing (Interventions Implemented as Appropriate) 05/21/14 0549 Skin Integrity Impairment, Risk/Actual Personal Related Risk Factors (Skin Integrity Impairment, Risk/Actual) developmental factors Physiological Related Risk Factors (Skin Integrity Impairment, Risk/Actual) abnormal tissue growth;sensory impairment Treatment Related Related Risk Factors (Skin Integrity Impairment, Risk/Actual) invasive catheters Goal: Skin Integrity/Wound Healing Patient will demonstrate the desired outcomes. Outcome: Ongoing (Interventions Implemented as Appropriate) 05/25/14 0527 Skin Integrity Impairment, Risk/Actual (Adult, Obstetrics) Skin Integrity/Wound Healing making progress toward outcome Problem: Infection, Risk/Actual (Adult, Obstetrics) Goal: Identify Signs and Symptoms and Related Risk Factors Signs and symptoms and related risk factors are identified upon initiation of Human Response Clinical Practice Guideline (CPG) Outcome: Ongoing (Interventions Implemented as Appropriate) 05/21/14 0549 Infection, Risk/Actual Personal Related Risk Factors (Infection, Risk/Actual) stress Environmental Related Risk Factors (Infection, Risk/Actual) healthcare- associated;hospital acquired(nosocomial) Physiological Related Risk Factors (Infection, Risk/Actual) chronic illness;implanted device Treatment Related Related Risk Factors (Infection, Risk/Actual) invasive device/lines/tubes Signs and Symptoms (Infection, Risk/Actual) malaise/weakness;pain/pressure;purulent drainage Goal: Infection Prevention/Resolution/Control Patient will demonstrate the desired outcomes. Outcome: Ongoing (Interventions Implemented as Appropriate) 05/22/14 0834 Infection, Risk/Actual (Adult, Obstetrics) Infection Prevention/Resolution/Control making progress toward outcome Problem: Fall/Trauma/Injury Risk (Pediatric) Goal: Identify Signs and Symptoms and Related Risk Factors Signs and symptoms and related risk factors are identified upon initiation of Human Response Clinical Practice Guideline (CPG) Outcome: Ongoing (Interventions Implemented as Appropriate) 05/22/14202905/25/14 1746 Fall/Trauma/Injury Risk Personal Related Risk Factors (Fall/Trauma/Injury Risk) gait/mobility problems/weakness -- Physiological Related Risk Factors (Fall/Trauma/Injury Risk) -- developmental disability;incontinence;neurologic alteration;neuromuscular alteration Treatment Related Related Risk Factors (Fall/Trauma/Injury Risk) -- invasive/noninvasive equipment;medication;bed rest Signs and Symptoms (Fall/Trauma/Injury Risk) -- presence of risk factors * Plan of Care - Deo Rios RN - 05/25/2014 5:50 PM EST Problem: General Plan of Care Goal: Plan of Care Review Outcome: Ongoing (Interventions Implemented as Appropriate) 05/25/14526 Plan of Care Review Plan of Care Outcome Status ongoing (interventions implemented as appropriate) Progress improving Coping/Psychosocial Response Interventions Plan of Care Reviewed with patient OUTCOME EVALUATION NOTE: OUTCOME SUMMARY: VSS, afebrile. Spinal MRI today, and successful PICC placement. Site c/d/i. Mom at bedside and active in care. PLAN MOVING FORWARD: Continue IV antibiotic regimen. INDIVIDUALIZED FALL PREVENTION: Assistance: Dependent Supervision: Alarms active and audible, Mom at bedside. Surveillance: The registered nurse will be responsible for purposeful rounding on each of their patients. Purposeful rounding will address the patient's pain/comfort, safety, and presence of family/observer at bedside. Purposeful rounding performed hourly between 0800 and 1800, and every other hourbetween 1999 and 08. CPG OUTCOME EVALUATION: Making progress towards goals. Goal: Fall Prevention-Safe Patient Handling Outcome: Ongoing (Interventions Implemented as Appropriate) 05/21/1479905/24/14199905/25/14526 Musculoskeletal Interventions Activity/Level of Assistance -- -- -- Positioning -- supine;independent with trapeze/overhead bed frame -- Self-Care Promotion -- -- bathing assistance provided;feeding assistance provided Activity and Safety Assistive Device -- -- Wheelchair Woodall Fall Risk History of Falling 0 -- -- Secondary Diagnosis 15 -- -- Ambulatory Aids 0 -- -- Intravenous Therapy/Heparin/Saline Lock 20 -- -- Gait/Transferring 0 -- -- Mental Status 15 -- -- Score 50 -- -- OTHER Woodall Fall Risk High (45 and higher) -- -- Safety Interventions Safety Precautions/Fall Reduction -- -- -- 05/25/14 09 Musculoskeletal Interventions Activity/Level of Assistance bed rest Positioning -- Self-Care Promotion -- Activity and Safety Assistive Device -- Woodall Fall Risk History of Falling -- Secondary Diagnosis -- Ambulatory Aids -- Intravenous Therapy/Heparin/Saline Lock -- Gait/Transferring -- Mental Status -- Score -- OTHER Woodall Fall Risk -- Safety Interventions Safety Precautions/Fall Reduction environmental modification;family at bedside Goal: Infection Control Outcome: Ongoing (Interventions Implemented as Appropriate) 05/24/14199905/25/14 09 Coping/Psychosocial Response Interventions Counseling calming techniques promoted -- Safety Interventions Isolation Precautions -- standard precautions maintained Infection Prevention hydration promoted;nutrition promoted;promote handwashing;rest/sleep promoted -- Goal: Discharge Needs Assessment Outcome: Ongoing (Interventions Implemented as Appropriate) 05/22/14 0605/24/14 1454 Discharge Needs Assessment Concerns to be Addressed no discharge needs identified -- Readmission Within the Last 30 Days clinical decline -- Equipment Needed After Discharge none -- Current Health Anticipated Changes Related to Illness none -- Living Environment Transportation Available family or friend will provide;car -- Self-Care Equipment Currently Used at Home -- wheelchair Problem: Skin Integrity Impairment, Risk/Actual (Adult, Obstetrics) Goal: Identify Signs and Symptoms and Related Risk Factors Signs and symptoms and related risk factors are identified upon initiation of Human Response Clinical Practice Guideline (CPG) Outcome: Ongoing (Interventions Implemented as Appropriate) 05/21/14 0549 Skin Integrity Impairment, Risk/Actual Personal Related Risk Factors (Skin Integrity Impairment, Risk/Actual) developmental factors Physiological Related Risk Factors (Skin Integrity Impairment, Risk/Actual) abnormal tissue growth;sensory impairment Treatment Related Related Risk Factors (Skin Integrity Impairment, Risk/Actual) invasive catheters Goal: Skin Integrity/Wound Healing Patient will demonstrate the desired outcomes. Outcome: Ongoing (Interventions Implemented as Appropriate) 05/25/14 05 Skin Integrity Impairment, Risk/Actual (Adult, Obstetrics) Skin Integrity/Wound Healing making progress toward outcome Problem: Infection, Risk/Actual (Adult, Obstetrics) Goal: Identify Signs and Symptoms and Related Risk Factors Signs and symptoms and related risk factors are identified upon initiation of Human Response Clinical Practice Guideline (CPG) Outcome: Ongoing (Interventions Implemented as Appropriate) 05/21/14 0549 Infection, Risk/Actual Personal Related Risk Factors (Infection, Risk/Actual) stress Environmental Related Risk Factors (Infection, Risk/Actual) healthcare- associated;hospital acquired(nosocomial) Physiological Related Risk Factors (Infection, Risk/Actual) chronic illness;implanted device Treatment Related Related Risk Factors (Infection, Risk/Actual) invasive device/lines/tubes Signs and Symptoms (Infection, Risk/Actual) malaise/weakness;pain/pressure;purulent drainage Goal: Infection Prevention/Resolution/Control Patient will demonstrate the desired outcomes. Outcome: Ongoing (Interventions Implemented as Appropriate) 05/22/14 0834 Infection, Risk/Actual (Adult, Obstetrics) Infection Prevention/Resolution/Control making progress toward outcome Problem: Fall/Trauma/Injury Risk (Pediatric) Goal: Identify Signs and Symptoms and Related Risk Factors Signs and symptoms and related risk factors are identified upon initiation of Human Response Clinical Practice Guideline (CPG) Outcome: Ongoing (Interventions Implemented as Appropriate) 05/22/14202905/25/14 1746 Fall/Trauma/Injury Risk Personal Related Risk Factors (Fall/Trauma/Injury Risk) gait/mobility problems/weakness -- Physiological Related Risk Factors (Fall/Trauma/Injury Risk) -- developmental disability;incontinence;neurologic alteration;neuromuscular alteration Treatment Related Related Risk Factors (Fall/Trauma/Injury Risk) -- invasive/noninvasive equipment;medication;bed rest Signs and Symptoms (Fall/Trauma/Injury Risk) -- presence of risk factors Problem: Health Knowledge, Opportunity for Enhanced (Adult, NICU, , Obstetrics, Pediatric) Goal: Identify Signs and Symptoms and Related Risk Factors Signs and symptoms and related risk factors are identified upon initiation of Human Response Clinical Practice Guideline (CPG) Outcome: Ongoing (Interventions Implemented as Appropriate) * Plan of Echo - Carisa Godwin RN - 05/25/2014 8:02 AM EST Problem: Health Knowledge, Opportunity for Enhanced (Adult, NICU, , Obstetrics, Pediatric) Goal: Knowledgeable about Health Subject/Topic Patient will demonstrate the desired outcomes. Outcome: Outcome (s) achieved Date Met: 05/25/14 05/25/14 0802 Health Knowledge, Opportunity for Enhanced (Adult, NICU, Conrad, Obstetrics, Pediatric) Knowledgeable about Health Subject/Topic achieves outcome * Plan of Care - Ольга Flores RN - 05/25/2014 5:46 AM EST Problem: General Plan of Care Goal: Plan of Care Review Outcome: Ongoing (Interventions Implemented as Appropriate) 05/25/14526 Plan of Care Review Plan of Care Outcome Status ongoing (interventions implemented as appropriate) Progress improving Coping/Psychosocial Response Interventions Plan of Care Reviewed with patient OUTCOME EVALUATION NOTE: OUTCOME SUMMARY: Neuro checks appropriate. Dressing clean,dry and intact. No signs of pain noted. PIV replaced. IVABcontinued. Labs drawn. Will continue to monitor. PLAN MOVING FORWARD: PICC placement today. INDIVIDUALIZED FALL PREVENTION: Assistance: Assistance with mobility and ADLs Supervision: mother at bedside for duration of shift Surveillance: The registered nurse will be responsible for purposeful rounding on each of their patients. Purposeful rounding will address the patient's pain/comfort, safety, and presence of family/observer at bedside. Purposeful rounding performed hourly between 0800 and 1800, and every other hourbetween 1999 and 799. CPG GOAL OUTCOME EVALUATION: Goal: Fall Prevention-Safe Patient Handling 05/21/14 0800 05/22/14195805/24/141999 Musculoskeletal Interventions Activity/Level of Assistance -- bed rest -- Self-Care Promotion -- -- -- Activity and Safety Assistive Device -- -- -- Woodall Fall Risk History of Falling 0 -- -- Secondary Diagnosis 15 -- -- Ambulatory Aids 0 -- -- Intravenous Therapy/Heparin/Saline Lock 20 -- -- Gait/Transferring 0 -- -- Mental Status 15 -- -- Score 50 -- -- OTHER Woodall Fall Risk High (45 and higher) -- -- Safety Interventions Safety Precautions/Fall Reduction -- -- family at bedside;lighting adjusted for task/safety;low bed;environmental modification 05/25/14526 Musculoskeletal Interventions Activity/Level of Assistance -- Self-Care Promotion bathing assistance provided;feeding assistance provided Activity and Safety Assistive Device Wheelchair [place] Fall Risk History of Falling -- Secondary Diagnosis -- Ambulatory Aids -- Intravenous Therapy/Heparin/Saline Lock -- Gait/Transferring -- Mental Status -- Score -- OTHER [place] Fall Risk -- Safety Interventions Safety Precautions/Fall Reduction -- Goal: Infection Control Outcome: Ongoing (Interventions Implemented as Appropriate) 05/24/141999 Coping/Psychosocial Response Interventions Counseling calming techniques promoted Safety Interventions Isolation Precautions standard precautions maintained Infection Prevention hydration promoted;nutrition promoted;promote handwashing;rest/sleep promoted Goal: Discharge Needs Assessment Outcome: Ongoing (Interventions Implemented as Appropriate) 05/22/14 0634 05/24/14 9313 Discharge Needs Assessment Concerns to be Addressed no discharge needs identified -- Equipment Needed After Discharge none -- Current Health Anticipated Changes Related to Illness none -- Living Environment Transportation Available family or friend will provide;car -- Self-Care Equipment Currently Used at Home -- wheelchair Problem: Skin Integrity Impairment, Risk/Actual (Adult, Obstetrics) Goal: Identify Signs and Symptoms and Related Risk Factors Signs and symptoms and related risk factors are identified upon initiation of Human Response Clinical Practice Guideline (CPG) Outcome: Ongoing (Interventions Implemented as Appropriate) 05/21/14 0549 Skin Integrity Impairment, Risk/Actual Personal Related Risk Factors (Skin Integrity Impairment, Risk/Actual) developmental factors Physiological Related Risk Factors (Skin Integrity Impairment, Risk/Actual) abnormal tissue growth;sensory impairment Treatment Related Related Risk Factors (Skin Integrity Impairment, Risk/Actual) invasive catheters Goal: Skin Integrity/Wound Healing Patient will demonstrate the desired outcomes. Outcome: Ongoing (Interventions Implemented as Appropriate) 05/25/14 0527 Skin Integrity Impairment, Risk/Actual (Adult, Obstetrics) Skin Integrity/Wound Healing making progress toward outcome Problem: Infection, Risk/Actual (Adult, Obstetrics) Goal: Identify Signs and Symptoms and Related Risk Factors Signs and symptoms and related risk factors are identified upon initiation of Human Response Clinical Practice Guideline (CPG) Outcome: Ongoing (Interventions Implemented as Appropriate) 05/21/14 0549 Infection, Risk/Actual Personal Related Risk Factors (Infection, Risk/Actual) stress Environmental Related Risk Factors (Infection, Risk/Actual) healthcare- associated;hospital acquired(nosocomial) Physiological Related Risk Factors (Infection, Risk/Actual) chronic illness;implanted device Treatment Related Related Risk Factors (Infection, Risk/Actual) invasive device/lines/tubes Signs and Symptoms (Infection, Risk/Actual) malaise/weakness;pain/pressure;purulent drainage Goal: Infection Prevention/Resolution/Control Patient will demonstrate the desired outcomes. Outcome: Ongoing (Interventions Implemented as Appropriate) 05/22/14 0834 Infection, Risk/Actual (Adult, Obstetrics) Infection Prevention/Resolution/Control making progress toward outcome Problem: Fall/Trauma/Injury Risk (Pediatric) Goal: Identify Signs and Symptoms and Related Risk Factors Signs and symptoms and related risk factors are identified upon initiation of Human Response Clinical Practice Guideline (CPG) Outcome: Ongoing (Interventions Implemented as Appropriate) 05/22/14 2030 Fall/Trauma/Injury Risk Personal Related Risk Factors (Fall/Trauma/Injury Risk) gait/mobility problems/weakness * Plan of Care - Lilia Bridges RN - 05/24/2014 5:36 PM EST Problem: General Plan of Care Goal: Plan of Care Review Outcome: Ongoing (Interventions Implemented as Appropriate) 05/24/14 1735 Plan of Care Review Plan of Care Outcome Status ongoing (interventions implemented as appropriate) Progress improving Coping/Psychosocial Response Interventions Plan of Care Reviewed with patient OUTCOME EVALUATION NOTE: OUTCOME SUMMARY: Monitor VSS and monitor for s/sx of infection PLAN MOVING FORWARD: Plan for PICC tomorrow, monitor pain and monitor VSS INDIVIDUALIZED FALL PREVENTION: Assistance: Full assistance Supervision: mom at bedside all day Surveillance: The registered nurse will be responsible for purposeful rounding on each of their patients. Purposeful rounding will address the patient's pain/comfort, safety, and presence of family/observer at bedside. Purposeful rounding performed hourly between 0800 and 1800, and every other hour between 2000 and 0800. CPG GOAL OUTCOME EVALUATION: * Initial Assessments - Mary Joe OT - 05/24/2014 4:47 PM EST Occupational Therapy Developmental Evaluation Patient profile: Tana Shelton is a 18 y.o. 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 Apparently, she had the baclofen pump placed in 2007, but it hadn't been working so it was removed on 05/11/14. She went home after that procedure but then developed fevers with erythema around the incision site as well as drainage from the incision. She was subsequently admitted on 05/20 and taken to the OR for washout of the site (by Dr. Burciaga). During the procedure, she was noted to have a CSF leak, so the remaining tubing was removed and everything was closed. (per chart review, Dr. Crabtree 05/23/14. OT consult received 05/24/14 for initial evaluation. Patient Active Problem List Diagnosis Code ??? 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 Acquired dysplasia of hip, bilateral 736.39 ??? Edema leg 782.3 ??? Scoliosis 737.30 ??? Spasticity 781.0 ??? Presence of intrathecal baclofen pump V45.89 History reviewed. No pertinent past medical history. Past Surgical History Procedure Laterality Date ??? Back surgery scoliosis repair ??? Hip osteotomy bilateral ??? Reconstruc hip socket, resec fem head 08/15/2010 ??ACETABULOPLASTY (GIRDLESTONE), RESECTION FEMORAL HEAD, BILATERAL performed by YAS OLIVER [facility] OR ??? Apply of hip casts, two legs 08/15/2010 CAST APPLICATION, HIP SPICA, BOTH LEGS performed by YAS OLIVER at [facility] OR ??? Removal deep implant 08/15/2010 REMOVAL IMPLANT, DEEP, BRUNO performed by YAS OLIVER at [facility] OR ??? Osteotomy femur shaft/supracondy 08/15/2010 ??OSTEOTOMY, FEMUR SHAFT OR SUPRACONDYLAR W/O FIXATION performed by YAS OLIVER at [facility] OR ??? Remove spinal canal catheter N/A 05/11/2014 REMOVAL OF INTRATHECAL OR EPIDURAL CATHETER performed by Jamaal Samuel MD at [facility] OR ??? Remove infusn device/pump N/A 05/11/2014 REMOVAL OF SPINE INFUSION PUMP performed by Jamaal Samuel MD at [facility] OR ? ? I&d, post spine, lumb/sacr/lumbosac N/A 05/20/2014 @I & D, OPEN, DEEP ABSCESS, LUMBAR, SACRAL, LUMBOSACRAL performed by Freddy Burciaga MD at [facility] OR ??? Repr, dural/csf leak, not req laminectomy N/A 05/20/2014 @REPAIR DURAL\CSF LEAK,NOT REQUIRING LAMINECTOMY performed by Freddy Burciaga MD at [facility] MA[facility] OR Social and Developmental History: Patient lives with her family in a single level home in [place], [place]. Pt's mother reports that their home is set-up appropriately for Tana's needs, handicap accessible. Developmental History: developmental delay. Tana uses a communication device with one touch point system at baseline. Baseline self care: Pt is dependent for all care. Tana is typically able to eat finger foods independently, using L hand. Requires hand over hand assist for feeding using utensils Home Set-Up: 1 level; no steps to enter; walk in shower with small step up, rolling shower chair, tomasa lift, hospital bed (mom reporting that this needs a new mattress) Daycare/School: Pt's mother reports that she has this spring +1 more year left of high school. Pt participates in classes with her peers. Mom states that Tana does her exercises with everyone else during gym class Services at Baseline: Per mom report: School based therapy services: pt receives speech services almost daily in order to learn and use her new communication device, OT 1x wk and PT 1 x wk. Mom reports that school therapist has been working on stretching, ROM and use of communication device in functional activities. Mom reports that Tana's caregivers and teachers are very good at carrying out necessary stretching and therapeutic interventions throughout the school day. Home nursing VNA services 3x/week DME: tomasa lift, communication device (new device, pt is expecting to receive within the next week hopefully), rolling shower chair, tilt in space w/c, hospital bed *Tana has an older sister who lives in [place] and 3 younger brothers. She likes to listen to music, and play with her brothers in their band. Precautions/Special Considerations: fall risk; high risk for skin breakdown; Keep SBP <160; joint contractures Activity Order: activity as tolerated Code Status: full code Subjective: yea. 3,4,5,6 (pt laughing and helping to count during stretching) Objective: Seen today for OT evaluation. Pts mother present and participating in evaluation. Cognitive Skills: pt answering questioning appropriately 'yes/no' Mom reporting that pt is at her baseline cognitive level of functioning. Social/Emotional/Behavior: interactive, engaged, laughing and participating in stretching Communication: 2-3 word phrases. Pt appropriately responding 'yes' or 'no' to questions. Pt typically uses a communication device (mom reports this should be coming in the mail) Vision & Hearing: no glasses. Pt tracking in all planes, some dysconjugate movements. Mom reports this is her baseline level of functioning 2/2 previous TBI. Pt responding to her name and verbal cues. Neuromuscular: spastic; scoliosis Per PT eval: LE PROM: RIGHT LEFT HIP Flexion WFL WFL Abduction 35* 40* Adduction WFL WFL KNEE Flexion WFL WFL Extension (-) 30* (-) 20* ANKLE Dorsiflexion > WFL >WFL Plantarflexion (-) 10* (-) 8* Mom reporting that pt previously had R UE surgery to decrease contractures and provide pt with increased PROM. Pt now using R UE to stabilize in functional tasks. Pt is L hand dominant. UE PROM: Neck rotation: WFL, but unable to achieve full AROM; passively able to range neck L and R Pt presenting with impaired B shoulder flexion. ~90* PROM R elbow extension > L elbow extension Wrists flexed, internally rotated. Forearms pronated. Pt able to initiate weak grasp B hand. *Pt tolerating gentle PROM and stretching to all available extremities. Gross Motor skills: Pt is dependent for transfers. Max A for rolling to change diaper Mom performed dependent lift to tilt in space w/c. Pt positioned with pillows behind head and underarms, leg rests up and supported by lunch tray (to make one flat surface) with pillows to elevate BLEs Ambulation: w/c dependent Fine Motor skills: Pt reaching to itch face and rub eyes with L UE; pt reaching with L hand to 'high 5' therapist. Overshooting and uncoordinated movement Pt is able to isolate point with L hand Self-Help Skills: pt dependent to change diaper. RN and mom assist. Feeding: per mom: KOTZEBUE assist for use of utensils; not observed at this time. Pain: Pt demonstrating discomfort when B legs are dangled in w/c; resolves when legs are propped upright with tray and pillows, leg rests elevated Informed Consent: The pt/family agrees to and understands the OT treatment plan and goals. Education: Pt and family have been educated on gentle ROM/stretching; maintenance of skin integrity, Role of occupational therapy/rehabilitation, Transfers, Exercise, Positioning, Safety, Activity pacing/Energy conservation, Recommendations, Family training and Discharge planning and verbalizes and demonstrates understanding. Patient status, treatment, and mobility recommendations discussed with nursing. Assessment: Tana is a pleasant 18 y/o female admitted for management of infected baclofen pump explantation site s/p washout. Pt's mother is very supportive and active in her care. Pt has been seen by OT for evaluation, and she presents with spastic quadriplegia. Pt tolerated OT eval (gentle PROM and transfer to w/c) well. Pt would benefit from ongoing OT services to facilitate developmental progression. Pt will benefit from continual gentle PROM and stretching to UEs and LEs to prevent contractures and maintain skin integrity. Recommendations: Equipment needs at discharge: pt has all necessary equipment. Mom reporting that family needs a newhospital bed mattress and TLSO brace Discharge Recommendations: Mom requesting home PT/OT services in addition to school services. Anticipate pt to d/c home with support and continued PT/OT/SENIOR FIELD ENGINEER/VNA services. Spoke with [facility] about consultfor new thoracic brace or re-sizing Staff communication/Mobility Recommendations: Pt. Would benefit from PROM to (B) LEs and (B) UEs daily and positioning upright in chair for mealsdaily as able. Goals: To be achieved by 06/01/14: ?? Pt will tolerate repositioning pt in bed, w/c, and bedside chair to maintain skin integrity ?? Pt will tolerate gentle PROM and AAROM, stretching and massage. ?? Pt will self feed finger foods using L UE, and R UE for stabilization ?? Family to demonstrate understanding of positioning to decrease risk of skin breakdown, contractures, and loss of range of motion. Plan: Pt to be seen 3-5 per week for therapy including role of OT, positioning, gentle PROM and stretching, massage, recommendations and d/c planning. Eval date: 05/24/2014 Total time spent with patient: 35 minutes for initial evaluation Total timed interventions: 0 minutes Thank you for this occupational therapy consult. Pager: [phone] Mary Joe OT 05/24/2014 Occupational Therapy Rehabilitation Department * Initial Assessments - Natividad Esqueda, PT - 05/24/2014 11:12 AM EST Physical Therapy Evaluation Patient profile: Tana Shelton is a 18 y.o. 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 PT Consult Received 05/24 for initial evaluation. Patient with the following active problems: Patient Active Problem List Diagnosis Code ??? 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 Acquired dysplasia of hip, bilateral 736.39 ??? Edema leg 782.3 ??? Scoliosis 737.30 ??? Spasticity 781.0 ??? Presence of intrathecal baclofen pump V45.89 PMH: History reviewed. No pertinent past medical history. Past Surgical History Procedure Laterality Date ??? Back surgery scoliosis repair ??? Hip osteotomy bilateral ??? Reconstruc hip socket, resec fem head 08/15/2010 ??ACETABULOPLASTY (GIRDLESTONE), RESECTION FEMORAL HEAD, BILATERAL performed by YAS OLIVER [facility] MAIN OR ??? Apply of hip casts, two legs 08/15/2010 CAST APPLICATION, HIP SPICA, BOTH LEGS performed by YAS OLIVER at [facility] OR ??? Removal deep implant 08/15/2010 REMOVAL IMPLANT, DEEP, BRUNO performed by YAS OLIVER at [facility] OR ??? Osteotomy femur shaft/supracondy 08/15/2010 ??OSTEOTOMY, FEMUR SHAFT OR SUPRACONDYLAR W/O FIXATION performed by YAS OLIVER at [facility] OR ??? Remove spinal canal catheter N/A 05/11/2014 REMOVAL OF INTRATHECAL OR EPIDURAL CATHETER performed by Jamaal Samuel MD at [facility] OR ??? Remove infusn device/pump N/A 05/11/2014 REMOVAL OF SPINE INFUSION PUMP performed by Jamaal Samuel MD at [facility] OR ? ? I&d, post spine, lumb/sacr/lumbosac N/A 05/20/2014 @I & D, OPEN, DEEP ABSCESS, LUMBAR, SACRAL, LUMBOSACRAL performed by Freddy Burciaga MD at [facility] OR ??? Repr, dural/csf leak, not req laminectomy N/A 05/20/2014 @REPAIR DURAL\CSF LEAK,NOT REQUIRING LAMINECTOMY performed by Freddy Burciaga MD at [facility] OR Social History: Patient lives with her family in a single story home in [place], [place]. Pt's mother reports that there is no stair requirement, and that she has all necessary equipment. Stairs: 0 without a rail to enter Baseline Mobility: Completely dependent for all care, home nursing VNA services 3x/week, school-based PT/OT/SENIOR FIELD ENGINEER, pt due to receive a communication device within the next week or so and has not yet had training on the device Equipment at home: pt's mother reports that she has all necessary equipment Precautions/Special Considerations: Full code; High risk for skin breakdown; At risk to fall; Keep SBP <160 Activity Orders: Activity as tolerated Staff communication/Mobility Recommendations: Pt. Would benefit from PROM to (B) LEs daily and positioning upright in chair for meals daily as able. Subjective: pt very social during today's evaluation and reported yes/no as appropriate and joins in counting with this news writer while stretching Objective: Pt seen for evaluation today. Pain: pt demonstrates minimal discomfort with PROM to (B) ankles, in agreement that the ankles are her least favorite part Vital Signs: Last value Range last 8 hrs Temperature Temp: 37.5 ??C (99.5 ??F) Temp: [37.5 ??C (99.5 ??F)] Heart Rate Heart Rate: 109 Heart Rate: [109] Blood Pressure BP: 85/51 mmHg BP: (85)/(51) Respiratory Rate Resp: 20 Resp: [20] SpO2 SpO2: 95 % SpO2: [95 %] Mental Status: Alert, oriented to person, very social and happy Musculoskeletal: PROM: RIGHT LEFT HIP Flexion WFL WFL Abduction 35* 40* Adduction WFL WFL KNEE Flexion WFL WFL Extension (-) 30* (-) 20* ANKLE Dorsiflexion > WFL >WFL Plantarflexion (-) 10* (-) 8* Bed Mobility: Supine to Sit: dependent using bear hug Rolling R/L: maximal assist Transfers: Dependent Education: patient and her mother have been educated on Exercise, Positioning, Safety , Home program and Role of therapy and pt's mother verbalizes understanding. Patient status, treatment, and mobility recommendations discussed with nursing. Assessment: Tana Shelton admitted for management of infected baclofen pump explantation site s/p washout. Pt's mother and primary caregiver is very supportive and demonstrates excellent comprehension of understanding of therapeutic interventions to support the care of the patient. Provided pt with PROM to (B) LEs today with good pt tolerance. Of note, pt reports that ankles are least favorite joints for PROM 2/2 spasticity. Pt left resting comfortably in bedside chair with Masimo secured and call fay in reach. Pt would benefit PROM to (B) LEs daily and positioning upright in chair for mealsdaily as able. The pt would benefit from skilled therapy services to maximize functional independence while in the hospital and to address limitations as noted above. Goals: To be achieved by 05/29/14: 1. Maintain ROM in neck, trunk, and extremities. 2. Assist pt in maintaining skin and joint integrity through positioning/splinting. 3. Pt will participate in active/active assisted exercise to promote strength and ROM for functional mobility 4. Family to demonstrate understanding of positioning to decrease risk of skin breakdown, contractures, and loss of range of motion. Plan: Pt to be seen 3-5 times per week for therapy including Bed mobility, Transfers, Exercise, Positioning and Home program. Patient agrees with plan as stated above. Discharge Recommendations: Patient would benefit from continued therapeutic interventions 2-3 times a week as provided in a home environment to progress toward functional goals. No other consults recommended at this time Equipment needs: Patient has all necessary equipment. Total time spent with patient: 40 minutes for evaluation Total timed interventions: 40 minutes Natividad Esqueda PT, DPT 05/24/2014 Pager: [phone] Physical Therapy Inpatient Rehabilitation Department * Plan of Care - Jigna Lorenzana RN - 05/24/2014 4:03 AM EST Problem: General Plan of Care Goal: Plan of Care Review Outcome: Ongoing (Interventions Implemented as Appropriate) 05/22/14633 Plan of Care Review Plan of Care Outcome Status ongoing (interventions implemented as appropriate) Progress declining Coping/Psychosocial Response Interventions Plan of Care Reviewed with patient;mother OUTCOME EVALUATION NOTE: OUTCOME SUMMARY: Vss, afebrile, discomfort relieved with 1 dose po oxy PLAN MOVING FORWARD: Continue to monitor INDIVIDUALIZED FALL PREVENTION: Assistance: total Supervision: mom at bedside and attentive to needs Surveillance: *The registered nurse will be responsible for purposeful rounding on each of their patients. Purposeful rounding will address the patient's pain/comfort, safety, and presence of family/observer at bedside. Purposeful rounding performed hourly between 0800 and 1800, and every other hour between 1999 and 799. CPG OUTCOME EVALUATION: Goal: Fall Prevention-Safe Patient Handling Outcome: Ongoing (Interventions Implemented as Appropriate) 05/21/1479905/22/14195805/23/141999 [place] Fall Risk History of Falling 0 -- -- Secondary Diagnosis 15 -- -- Ambulatory Aids 0 -- -- Intravenous Therapy/Heparin/Saline Lock 20 -- -- Gait/Transferring 0 -- -- Mental Status 15 -- -- Score 50 -- -- OTHER [place] Fall Risk High (45 and higher) -- -- Safety Interventions Safety Precautions/Fall Reduction -- -- family at bedside Musculoskeletal Interventions Activity/Level of Assistance -- bed rest -- Positioning -- -- right side Goal: Infection Control Outcome: Ongoing (Interventions Implemented as Appropriate) 05/22/1492405/22/14199905/23/141999 Coping/Psychosocial Response Interventions Counseling -- calming techniques promoted -- Safety Interventions Isolation Precautions -- -- standard precautions maintained Infection Prevention promote handwashing;rest/sleep promoted -- -- Goal: Discharge Needs Assessment Outcome: Ongoing (Interventions Implemented as Appropriate) 05/22/14633 Discharge Needs Assessment Concerns to be Addressed no discharge needs identified Readmission Within the Last 30 Days clinical decline Equipment Needed After Discharge none Current Health Anticipated Changes Related to Illness none Living Environment Transportation Available family or friend will provide;car Self-Care Equipment Currently Used at Home none Problem: Skin Integrity Impairment, Risk/Actual (Adult, Obstetrics) Goal: Identify Signs and Symptoms and Related Risk Factors Signs and symptoms and related risk factors are identified upon initiation of Human Response Clinical Practice Guideline (CPG) Outcome: Ongoing (Interventions Implemented as Appropriate) 05/21/14 0549 Skin Integrity Impairment, Risk/Actual Personal Related Risk Factors (Skin Integrity Impairment, Risk/Actual) developmental factors Physiological Related Risk Factors (Skin Integrity Impairment, Risk/Actual) abnormal tissue growth;sensory impairment Treatment Related Related Risk Factors (Skin Integrity Impairment, Risk/Actual) invasive catheters Goal: Skin Integrity/Wound Healing Patient will demonstrate the desired outcomes. Outcome: Ongoing (Interventions Implemented as Appropriate) 05/22/14 0834 Skin Integrity Impairment, Risk/Actual (Adult, Obstetrics) Skin Integrity/Wound Healing making progress toward outcome Problem: Infection, Risk/Actual (Adult, Obstetrics) Goal: Identify Signs and Symptoms and Related Risk Factors Signs and symptoms and related risk factors are identified upon initiation of Human Response Clinical Practice Guideline (CPG) Outcome: Ongoing (Interventions Implemented as Appropriate) 05/21/14 0549 Infection, Risk/Actual Personal Related Risk Factors (Infection, Risk/Actual) stress Environmental Related Risk Factors (Infection, Risk/Actual) healthcare- associated;hospital acquired(nosocomial) Physiological Related Risk Factors (Infection, Risk/Actual) chronic illness;implanted device Treatment Related Related Risk Factors (Infection, Risk/Actual) invasive device/lines/tubes Signs and Symptoms (Infection, Risk/Actual) malaise/weakness;pain/pressure;purulent drainage Goal: Infection Prevention/Resolution/Control Patient will demonstrate the desired outcomes. Outcome: Ongoing (Interventions Implemented as Appropriate) 05/22/14 0834 Infection, Risk/Actual (Adult, Obstetrics) Infection Prevention/Resolution/Control making progress toward outcome Problem: Fall/Trauma/Injury Risk (Pediatric) Goal: Identify Signs and Symptoms and Related Risk Factors Signs and symptoms and related risk factors are identified upon initiation of Human Response Clinical Practice Guideline (CPG) Outcome: Ongoing (Interventions Implemented as Appropriate) 05/22/142029 Fall/Trauma/Injury Risk Personal Related Risk Factors (Fall/Trauma/Injury Risk) gait/mobility problems/weakness * Plan of Care - Hedy Vazquez RN - 05/23/2014 6:48 PM EST Problem: General Plan of Care Goal: Individualization and Mutuality Outcome: Outcome (s) achieved Date Met: 05/23/14 05/22/14 0634 Individualization Patient Specific Preferences likes syringes or spoons with liquids Patient Specific Interventions turns as needed through the night. Mutuality/Individual Preferences What anxieties, fears or concerns do you have about your health or care? infection control What information would help us give you more personalized care? mom will stay and assist in care. OUTCOME EVALUATION NOTE: OUTCOME SUMMARY: Turned and repositioned Q2, dressings intact, some with dried drainage, diapered, voids, no stool PLAN MOVING FORWARD: Cont IV abx, labs in AM INDIVIDUALIZED FALL PREVENTION: Assistance: Total Care Supervision:Mother Vasquez, RN Surveillance: The registered nurse will be responsible for purposeful rounding on each of their patients. Purposeful rounding will address the patient's pain/comfort, safety, and presence of family/observer at bedside. Purposeful rounding performed hourly between 0800 and 1800, and every other hourbetween 1999 and 0800. CPG GOAL OUTCOME EVALUATION: Making progress towards goal Goal: Fall Prevention-Safe Patient Handling Outcome: Ongoing (Interventions Implemented as Appropriate) 05/21/14 0805/22/14 19505/23/14 0805 [place] Fall Risk History of Falling 0 -- -- Secondary Diagnosis 15 -- -- Ambulatory Aids 0 -- -- Intravenous Therapy/Heparin/Saline Lock 20 -- -- Gait/Transferring 0 -- -- Mental Status 15 -- -- Score 50 -- -- OTHER [place] Fall Risk High (45 and higher) -- -- Safety Interventions Safety Precautions/Fall Reduction -- -- family at bedside Musculoskeletal Interventions Activity/Level of Assistance -- bed rest -- Positioning -- -- -- 05/23/14 1600 [place] Fall Risk History of Falling -- Secondary Diagnosis -- Ambulatory Aids -- Intravenous Therapy/Heparin/Saline Lock -- Gait/Transferring -- Mental Status -- Score -- OTHER [place] Fall Risk -- Safety Interventions Safety Precautions/Fall Reduction -- Musculoskeletal Interventions Activity/Level of Assistance -- Positioning left side Goal: Infection Control Outcome: Ongoing (Interventions Implemented as Appropriate) 05/22/14 0905/22/141999 Coping/Psychosocial Response Interventions Counseling -- calming techniques promoted Safety Interventions Isolation Precautions standard precautions maintained -- Infection Prevention promote handwashing;rest/sleep promoted -- Goal: Discharge Needs Assessment Outcome: Ongoing (Interventions Implemented as Appropriate) 05/22/14 0634 Living Environment Transportation Available family or friend will provide;car Problem: Skin Integrity Impairment, Risk/Actual (Adult, Obstetrics) Goal: Identify Signs and Symptoms and Related Risk Factors Signs and symptoms and related risk factors are identified upon initiation of Human Response Clinical Practice Guideline (CPG) Outcome: Ongoing (Interventions Implemented as Appropriate) 05/21/14 0549 Skin Integrity Impairment, Risk/Actual Personal Related Risk Factors (Skin Integrity Impairment, Risk/Actual) developmental factors Physiological Related Risk Factors (Skin Integrity Impairment, Risk/Actual) abnormal tissue growth;sensory impairment Treatment Related Related Risk Factors (Skin Integrity Impairment, Risk/Actual) invasive catheters Goal: Skin Integrity/Wound Healing Patient will demonstrate the desired outcomes. Outcome: Ongoing (Interventions Implemented as Appropriate) 05/22/14 0834 Skin Integrity Impairment, Risk/Actual (Adult, Obstetrics) Skin Integrity/Wound Healing making progress toward outcome Problem: Infection, Risk/Actual (Adult, Obstetrics) Goal: Identify Signs and Symptoms and Related Risk Factors Signs and symptoms and related risk factors are identified upon initiation of Human Response Clinical Practice Guideline (CPG) Outcome: Ongoing (Interventions Implemented as Appropriate) 05/21/14 0549 Infection, Risk/Actual Personal Related Risk Factors (Infection, Risk/Actual) stress Environmental Related Risk Factors (Infection, Risk/Actual) healthcare- associated;hospital acquired(nosocomial) Physiological Related Risk Factors (Infection, Risk/Actual) chronic illness;implanted device Treatment Related Related Risk Factors (Infection, Risk/Actual) invasive device/lines/tubes Signs and Symptoms (Infection, Risk/Actual) malaise/weakness;pain/pressure;purulent drainage Goal: Infection Prevention/Resolution/Control Patient will demonstrate the desired outcomes. Outcome: Ongoing (Interventions Implemented as Appropriate) 05/22/14 0834 Infection, Risk/Actual (Adult, Obstetrics) Infection Prevention/Resolution/Control making progress toward outcome Problem: Fall/Trauma/Injury Risk (Pediatric) Goal: Identify Signs and Symptoms and Related Risk Factors Signs and symptoms and related risk factors are identified upon initiation of Human Response Clinical Practice Guideline (CPG) 05/22/142029 Fall/Trauma/Injury Risk Personal Related Risk Factors (Fall/Trauma/Injury Risk) gait/mobility problems/weakness * Consult Note - Lucho Smith MD - 05/23/2014 5:23 PM EST Pediatric Consult Progress Note ID: Tana Shelton is a 18 y.o. who was admitted for baclofen pump explant site infection. We are consulting on antibiotic choice and medical management of hypokalemia Interval Events: Tolerating PO well K stable and WNL overnight. Not checking today MIVF turned down to 20 of K instead of 40 of K this afternoon due to adequate PO Fluid culture grew escobar sensitive pseudomonas Antibiotic narrowed to Vanc + Ceftaz , and then after consultation with ID, switched to solo ceftazidime O: Patient Vitals for the past 168 hrs: Weight 05/21/14 1700 47.628 kg (105 lb) 05/20/14 1620 47.628 kg (105 lb) Temp: [37 ??C (98.6 ??F)-37.9 ??C (100.2 ??F)] Heart Rate: [102-134] Resp: [20-22] BP: (90-113)/(50-67) SpO2: [96 %-100 %] General: Awake, alert, interactive. HEENT: mmm, benign oropharynx, PERRL, EOMI, no nasal secretions, eyes without conjunctival injection, drainage/crustiness CV: rrr, no murmurs, 2+ distal pulses Resp: good air entry, CTAB, no increased WOB, no wheezing, crackles Abd: active bowel sounds, soft, non tender, no masses, no HSM MS: MAEW, grossly normal strength Neuro: non focal Back: significant scoliosis. Three dressings seen, over back, right lumbar and right periumbilical areas. Dressings clean. Labs: Recent Results (from the past 24 hour(s)) ELECTROLYTES PANEL Result Value Ref Range Sodium 141 135 - 145 mmol/L Potassium 4.0 3.5 - 5.0 mmol/L Chloride 103 98 - 107 mmol/L CO2 22 22 - 31 mmol/L Anion Gap 16 (*) 5 - 15 mmol/L ELECTROLYTES PANEL Result Value Ref Range Sodium 141 135 - 145 mmol/L Potassium 3.9 3.5 - 5.0 mmol/L Chloride 107 98 - 107 mmol/L CO2 21 (*) 22 - 31 mmol/L Anion Gap 13 5 - 15 mmol/L Assessment and plan: 18 yo young lady with spastic quadriplegia s/p TBI, now admitted under neurosurgery for management of infected baclofen pump explantation site s/p washout 3 days ago. We are being consulted to help with her medical management of hypokalemia and antibiotics for the infection. Hypokalemia was likely 2/2 vomiting and as resolved. At this time she should be allowed to POAL andK in MIVF should be reduced to 20. Antibiotics should be tailored for the pansensitive pseudomonas, likely to be pathogenic. Yesterdaywe recommended switching to Ceftaz + Vanc (after 2 doses of zosyn + vanc), and would defer to ID, who recommended single therapy with Ceftaz. Recommendations: FEN- -Allow POAL -Reduce K in MIVF - D5 NS + 20 K -Recheck K only if further severe vomiting ID- -ceftazidime per ID Mitch Dean MD 05/23/2014 Attending Staff New Consult Documentation Agree with above. - If poor PO and recurrent hyopK, would also follow-up Mag and Phos as these were not specifically repleted. - Nausea/emesis and ? Abdominal pain seems much improved/resolved. Ensure narcotic bowel regimen while on opiods. If recurrent abd pain or issues, we would happy to help in further evaluation. If receiving significant quantities of antiemetics would consider screening ECG to ensure QTc OK. - Now on ceftazidime monotherapy for pseudomonas, defer further abx management to ID. Lucho Smith MD * Consult Note - Wai Crabtree MD - 05/23/2014 11:13 AM EST Infectious Disease Inpatient Consult Note Reason for Consult: We are being asked to see Tana Shelton at the request of Dr. Burciaga for evaluation of surgical site infection. HPI: Tana Shelton is a 18 y.o. 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 Apparently, she had the baclofen pump placed in 2007, but it hadn't been working so it was removed on 05/11/14. She went home after that procedure but then developed feverswith erythema around the incision site as well as drainage from the incision. She was subsequently admitted on 05/20 and taken to the OR for washout of the site. During the procedure, she was noted tohave a CSF leak, so the remaining tubing was removed and everything was closed. She was initially on Ceftriaxone, Vanco, and Flagyl, but these were switched to Zosyn, Ceftazidime when cultures showedPseudomonas. Her last fever was yesterday afternoon, and her WBC count is normal. Vanco was continued as well. ID has been consulted for antibiotic recommendations. Past Medical history: History reviewed. No pertinent past medical history. Patient Active Problem List Diagnosis Code ??? 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 Acquired dysplasia of hip, bilateral 736.39 ??? Edema leg 782.3 ??? Scoliosis 737.30 ??? Spasticity 781.0 ??? Presence of intrathecal baclofen pump V45.89 Medications: Ceftazidime Zosyn Vanco Allergies: Allergies Allergen Reactions ??? Fluoxetine Other (See Comments) HIVES, HEART RACES Social History: History Social History ??? Marital Status: Single Spouse Name: N/A Number of Children: N/A ??? Years of Education: N/A Occupational History ??? Not on file. Social History Main Topics ??? Smoking status: Never Smoker ??? Smokeless tobacco: Never Used Comment: NO SMOKERS IN THE HOME ??? Alcohol Use: No ??? Drug Use: No ??? Sexual Activity: Not on file Other Topics Concern ??? Not on file Social History Narrative Family History: non-contributory ROS Unable to obtain - patient nonverbal Physical Exam: Last value Range last 48 hrs Temperature Temp: 37.1 ??C (98.8 ??F) Temp: [36.8 ??C (98.2 ??F)-38.6 ??C (101.5 ??F)] Heart Rate Heart Rate: 120 Heart Rate: [96-153] Blood Pressure BP: 113/67 mmHg BP: (92-123)/(56-77) Respiratory Rate Resp: 22 Resp: [16-30] SpO2 SpO2: 100 % SpO2: [97 %-100 %] General NAD Neuro Spasticity present with contractures of LE's Eyes No icterus, no injection Throat Mucous membranes moist. Heart RRR Lungs CTAB Abdomen Soft, nontender Skin Multiple incisions - vertical one on lower back very erythematous with some yellowish drainage. One on R hip minimally erythematous with mild drainage. One on lower abdomen clean and healing well without erythema. Labs: WBC 7.7 Creatinine 0.31 Micro: Blood cultures: 05/20 - NGTD Urine cultures: 05/20 - neg OR lumbar wound cultures #1: 05/20 - Pseudomonas #2: 05/20 - Pseudomonas Pump tubin/24 - Pseudomonas SUSCEPTIBILITY RESULTS Pseudomonas aeruginosa PAT Interp Aztreonam S Ceftazidime S Ciprofloxacin S Gentamicin S Levofloxacin S Meropenem S Piperacillin/Tazobactam S Tobramycin S Imaging: Reviewed Impression: 18 y.o. female with h/o TBI with spastic quadriplegia who is admitted with a surgical site infection after removal of a baclofen pump on 05/11/14. She had a washout with tubing removal on 05/20 with closure of the wound. However, there is significant erythema and drainage from the surgical site, and with the CSF leak that was appreciated during surgery, we should strongly consider that the CSF may be infected even though she is not showing clinical signs of meningitis. Cultures all growing escobar-sensitive Pseudomonas. Recommendations: 1 - OK to stop Zosyn and continue Ceftazidime alone 2 - Vanco likely not necessary as no GP's growing in cultures, but ok to continue while awaiting final cultures 3 - Would try to keep her off her back as much as possible in order to allow the lumbar incision todrain and heal Thank you for this interesting consult. We will continue to follow with you. Discussed with team. Patient seen and discussed with Dr. Crabtree. Nely Boss MD Infectious Disease Fellow Internal Medicine/Pediatrics ID Staff: I saw and examined the patient with Dr. Boss.The assessment and plan above was created in discussion with me and is as documented above by the fellow. S/p explant of intrathecal baclofen pump on 05/11/14 (all except small portion of retained right flank catheter) complicated by lumbar wound infection and deep spine soft tissue infection with CSF leak (r/o epidural abscess) requiring debridement on 05/21/2014. At the time of the second surgery, the remaining broken off piece of catheter in the right flank was identified and removed. Pt is tolerating this infection well without clinical evidence of meningitis. Currently her back wound still has evidence of ongoing infection with surrounding erythema and exudate, perhaps because she has only been on effective anti-pseudomonal therapy since 05/22. She also has some milder erythema and exudate over the right lateral abdominal wall where incisions were made to remove tubing. The RLQ abdominal pump explant site wound is healing well. Agree that Ceftazidime is the foster antibiotic based on it's ability to penetrate the ENVIRONMENTAL PROTECTION SPECIALIST. We need todiscuss whether to pursue an MRI spine to help with duration of therapy decisions. If she were to have an occult epidural abscess beyond the explored surgical level, that would certainly drive my thinking to treat for 8 weeks. However, if she does well, doesn't have a persistent CSF leak, and doesn' t have any residual deep parameningeal focus, she might be able to treated for a much shorter duration. She may ultimately be able to transition to oral cipro but unclear at this time. We will continue to follow with you. 80 minutes Brandin Crabtree MD * Plan of Care - Jigna Lorenzana RN - 05/23/2014 5:10 AM EST Problem: General Plan of Care Goal: Plan of Care Review Outcome: Ongoing (Interventions Implemented as Appropriate) 05/22/14 0634 Plan of Care Review Plan of Care Outcome Status ongoing (interventions implemented as appropriate) Progress declining Coping/Psychosocial Response Interventions Plan of Care Reviewed with patient;mother OUTCOME EVALUATION NOTE: OUTCOME SUMMARY: Vss, afebrile, pain controled with po oxy and tylenol, voiding qs PLAN MOVING FORWARD: Continue to monitor INDIVIDUALIZED FALL PREVENTION: Assistance: total Supervision: mom at bedside Surveillance: The registered nurse will be responsible for purposeful rounding on each of their patients. Purposeful rounding will address the patient's pain/comfort, safety, and presence of family/observer at bedside. Purposeful rounding performed hourly between 0800 and 1800, and every other hourbetween 2000 and 0800. CPG OUTCOME EVALUATION: Goal: Individualization and Mutuality Outcome: Ongoing (Interventions Implemented as Appropriate) 05/22/14 06 Individualization Patient Specific Preferences likes syringes or spoons with liquids Patient Specific Interventions turns as needed through the night. Mutuality/Individual Preferences What anxieties, fears or concerns do you have about your health or care? infection control What information would help us give you more personalized care? mom will stay and assist in care. Goal: Fall Prevention-Safe Patient Handling Outcome: Ongoing (Interventions Implemented as Appropriate) 05/21/1479905/22/141958 [place] Fall Risk History of Falling 0 -- Secondary Diagnosis 15 -- Ambulatory Aids 0 -- Intravenous Therapy/Heparin/Saline Lock 20 -- Gait/Transferring 0 -- Mental Status 15 -- Score 50 -- OTHER [place] Fall Risk High (45 and higher) -- Safety Interventions Safety Precautions/Fall Reduction -- family at bedside Musculoskeletal Interventions Activity/Level of Assistance -- bed rest Positioning -- HOB up 30 degrees Goal: Infection Control Outcome: Ongoing (Interventions Implemented as Appropriate) 05/22/1492405/22/141999 Coping/Psychosocial Response Interventions Counseling -- calming techniques promoted Safety Interventions Isolation Precautions standard precautions maintained -- Infection Prevention promote handwashing;rest/sleep promoted -- Goal: Discharge Needs Assessment Outcome: Ongoing (Interventions Implemented as Appropriate) 05/22/14633 Discharge Needs Assessment Concerns to be Addressed no discharge needs identified Readmission Within the Last 30 Days clinical decline Equipment Needed After Discharge none Current Health Anticipated Changes Related to Illness none Living Environment Transportation Available family or friend will provide;car Self-Care Equipment Currently Used at Home none Problem: Skin Integrity Impairment, Risk/Actual (Adult, Obstetrics) Goal: Identify Signs and Symptoms and Related Risk Factors Signs and symptoms and related risk factors are identified upon initiation of Human Response Clinical Practice Guideline (CPG) Outcome: Ongoing (Interventions Implemented as Appropriate) 05/21/14 0549 Skin Integrity Impairment, Risk/Actual Personal Related Risk Factors (Skin Integrity Impairment, Risk/Actual) developmental factors Physiological Related Risk Factors (Skin Integrity Impairment, Risk/Actual) abnormal tissue growth;sensory impairment Treatment Related Related Risk Factors (Skin Integrity Impairment, Risk/Actual) invasive catheters Goal: Skin Integrity/Wound Healing Patient will demonstrate the desired outcomes. Outcome: Ongoing (Interventions Implemented as Appropriate) 05/22/14 0834 Skin Integrity Impairment, Risk/Actual (Adult, Obstetrics) Skin Integrity/Wound Healing making progress toward outcome Problem: Infection, Risk/Actual (Adult, Obstetrics) Goal: Identify Signs and Symptoms and Related Risk Factors Signs and symptoms and related risk factors are identified upon initiation of Human Response Clinical Practice Guideline (CPG) Outcome: Ongoing (Interventions Implemented as Appropriate) 05/21/14 0549 Infection, Risk/Actual Personal Related Risk Factors (Infection, Risk/Actual) stress Environmental Related Risk Factors (Infection, Risk/Actual) healthcare- associated;hospital acquired(nosocomial) Physiological Related Risk Factors (Infection, Risk/Actual) chronic illness;implanted device Treatment Related Related Risk Factors (Infection, Risk/Actual) invasive device/lines/tubes Signs and Symptoms (Infection, Risk/Actual) malaise/weakness;pain/pressure;purulent drainage Goal: Infection Prevention/Resolution/Control Patient will demonstrate the desired outcomes. Outcome: Ongoing (Interventions Implemented as Appropriate) 05/22/14 0834 Infection, Risk/Actual (Adult, Obstetrics) Infection Prevention/Resolution/Control making progress toward outcome Problem: Fall/Trauma/Injury Risk (Pediatric) Goal: Identify Signs and Symptoms and Related Risk Factors Signs and symptoms and related risk factors are identified upon initiation of Human Response Clinical Practice Guideline (CPG) Outcome: Ongoing (Interventions Implemented as Appropriate) 05/22/14 2030 Fall/Trauma/Injury Risk Personal Related Risk Factors (Fall/Trauma/Injury Risk) gait/mobility problems/weakness * Plan of Care - Angelica Rosario RN - 05/22/2014 8:45 PM EST Problem: General Plan of Care Goal: Plan of Care Review Outcome: Ongoing (Interventions Implemented as Appropriate) 05/22/14 0634 Plan of Care Review Plan of Care Outcome Status ongoing (interventions implemented as appropriate) Progress declining Coping/Psychosocial Response Interventions Plan of Care Reviewed with patient;mother OUTCOME EVALUATION NOTE: OUTCOME SUMMARY: VSS, Tmax 38.6, treated with Tylenol, resolved to 37.5. Assessment as documented. Pt K 2.9 in am following episode of vomiting, potassium increased in maint fluids to 40 mEq. One dose of IV [id number] mEq administered per orders. Re-check of K at noon noted as 3.6. One dose of oral k-phos administered. Potassium rechecked @ 1800, resulted in 4.0. IV ABX to EJ, and new PIV per orders. ABX changed today (see MAR). Vanco ran over 2 hours r/t previous report of flushing. Pain controlled today with PRN rectal Tylenol and PRN oxycodone. One dose of Valium administered r/t pt fussiness, pain resolved with multimodal pain medications. Multiple wet diapers this shift. Pt had large BM @ 1800 (soft/formed, brown). Dressing to back changed, MD aware; previous dressing to back had small amount of serous-sanguinous drainage. +CSMT, turned and repositioned with care today. Mother present at bedside;updated on and involved in the plan of care. PLAN MOVING FORWARD: Ongoing, cont to monitor for temperature, pain, incision sites, and labs. Turn and reposition as appropriate. Encourage PO intake. Support pt and mother throughout this hospitalization. INDIVIDUALIZED FALL PREVENTION: Assistance: All care; turn reposition Q2, incontinence care, complete bed bath. Supervision: Moraima younger. Mother present at bedside. Updated on and involved in the plan of care. Surveillance: The registered nurse will be responsible for purposeful rounding on each of their patients. Purposeful rounding will address the patient's pain/comfort, safety, and presence of family/observer at bedside. Purposeful rounding performed hourly between 0800 and 1800, and every other hourbetween 2000 and 0800. CPG GOAL OUTCOME EVALUATION: Ongoing, IVAB administration, monitoring for pain/fevers/labs. Goal: Individualization and Mutuality Outcome: Ongoing (Interventions Implemented as Appropriate) 05/22/14 0634 Individualization Patient Specific Preferences likes syringes or spoons with liquids Patient Specific Interventions turns as needed through the night. Mutuality/Individual Preferences What anxieties, fears or concerns do you have about your health or care? infection control What information would help us give you more personalized care? mom will stay and assist in care. Goal: Fall Prevention-Safe Patient Handling Outcome: Ongoing (Interventions Implemented as Appropriate) 05/22/141958 Safety Interventions Safety Precautions/Fall Reduction family at bedside Musculoskeletal Interventions Activity/Level of Assistance bed rest Positioning HOB up 30 degrees Goal: Infection Control Outcome: Ongoing (Interventions Implemented as Appropriate) 05/22/14 0925 05/22/141999 Coping/Psychosocial Response Interventions Counseling -- calming techniques promoted Safety Interventions Isolation Precautions standard precautions maintained -- Infection Prevention promote handwashing;rest/sleep promoted -- Goal: Discharge Needs Assessment Outcome: Ongoing (Interventions Implemented as Appropriate) 05/22/14 06 Discharge Needs Assessment Concerns to be Addressed no discharge needs identified Readmission Within the Last 30 Days clinical decline Equipment Needed After Discharge none Current Health Anticipated Changes Related to Illness none Living Environment Transportation Available family or friend will provide;car Self-Care Equipment Currently Used at Home none Problem: Skin Integrity Impairment, Risk/Actual (Adult, Obstetrics) Goal: Identify Signs and Symptoms and Related Risk Factors Signs and symptoms and related risk factors are identified upon initiation of Human Response Clinical Practice Guideline (CPG) Outcome: Ongoing (Interventions Implemented as Appropriate) 05/21/14 05 Skin Integrity Impairment, Risk/Actual Personal Related Risk Factors (Skin Integrity Impairment, Risk/Actual) developmental factors Physiological Related Risk Factors (Skin Integrity Impairment, Risk/Actual) abnormal tissue growth;sensory impairment Treatment Related Related Risk Factors (Skin Integrity Impairment, Risk/Actual) invasive catheters Goal: Skin Integrity/Wound Healing Patient will demonstrate the desired outcomes. Outcome: Ongoing (Interventions Implemented as Appropriate) 05/22/14833 Skin Integrity Impairment, Risk/Actual (Adult, Obstetrics) Skin Integrity/Wound Healing making progress toward outcome Problem: Infection, Risk/Actual (Adult, Obstetrics) Goal: Identify Signs and Symptoms and Related Risk Factors Signs and symptoms and related risk factors are identified upon initiation of Human Response Clinical Practice Guideline (CPG) Outcome: Ongoing (Interventions Implemented as Appropriate) 05/21/14 05 Infection, Risk/Actual Personal Related Risk Factors (Infection, Risk/Actual) stress Environmental Related Risk Factors (Infection, Risk/Actual) healthcare- associated;hospital acquired(nosocomial) Physiological Related Risk Factors (Infection, Risk/Actual) chronic illness;implanted device Treatment Related Related Risk Factors (Infection, Risk/Actual) invasive device/lines/tubes Signs and Symptoms (Infection, Risk/Actual) malaise/weakness;pain/pressure;purulent drainage Goal: Infection Prevention/Resolution/Control Patient will demonstrate the desired outcomes. Outcome: Ongoing (Interventions Implemented as Appropriate) 05/22/14833 Infection, Risk/Actual (Adult, Obstetrics) Infection Prevention/Resolution/Control making progress toward outcome Problem: Fall/Trauma/Injury Risk (Pediatric) Goal: Identify Signs and Symptoms and Related Risk Factors Signs and symptoms and related risk factors are identified upon initiation of Human Response Clinical Practice Guideline (CPG) Outcome: Ongoing (Interventions Implemented as Appropriate) 05/22/142029 Fall/Trauma/Injury Risk Personal Related Risk Factors (Fall/Trauma/Injury Risk) gait/mobility problems/weakness Goal: Absence of Trauma/Injury/Falls Patient will demonstrate the desired outcomes. 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 I have reviewed and summarize his prior medical records below. Initial placement of baclofen pump in 2007 in [place]. Due to lack of efficacy the baclofen pump was explanted on 05/11/2014. Uncomplicated post op course, went home on POD 2. On 05/20/14 she presented to the ED via Neurosurgery after her nurse noted green drainage from the posterior dressing. The site was noted to be red, flushed, and she was noted to have fevers. Found tohave post op infection with CSF leak. Went to OR for washout and closure. Low concern for CSF infection. Tolerated the procedure well, and has been on Vanc, Ceftr, Flagyl for antibiotic coverage in the meanwhile. Fluid Cx has grown non specific pseudomonas to date. She came up from PICU yesterday. This AM her BMP showed K down to 2.9 from 4.0 24 hours ago. She was somewhat sleep this AM but is described as being her usual self at this time. This AM she has received an IV run of 10meq K as well as 20K in her MIVF. She has had significant vomiting last night and today, and has received 8mg zofran this AM. Otherwise has been in good health. PMHx: TBI Spastic quadriplegia Scoliosis Meds: No current facility-administered medications on file prior to encounter. Current Outpatient Prescriptions on File Prior to Encounter Medication Sig Dispense Refill ??? acetaminophen (TYLENOL) 650 mg/20.3 mL Solution Take 22.3 mLs by mouth every 6 hours. ??? oxyCODONE (ROXICODONE) 5 mg Tablet Take 1-2 tablets by mouth every 4 hours as needed for Pain (PAIN) for up to 30 days. 30 tablet 0 ??? diaZEPam (VALIUM) 5 mg/5 mL (5 mL) Solution Take 5 mLs by mouth 2 times daily. 100 mL 0 ??? levonorgestrel-ethinyl estradiol (INTROVALE) 0.15-30 mg-mcg per tablet Take 1 tablet by mouth daily. ??? POLYETHYLENE GLYCOL 3350 (MIRALAX ORAL) Take by mouth daily. ??? baclofen (LIORESAL) 10 mg tablet 10 MG = 1 Tablet(s), PO, QPM ??? ibuprofen (ADVIL;MOTRIN) 100 mg/5 mL suspension 300 mg, PO, Q6H prn Allergies: NKDA SocHx: Non contributory FamHx: Non contributory PE: Temp: [36.8 ??C (98.2 ??F)-38.6 ??C (101.5 ??F)] Heart Rate: [96-153] Resp: [16-24] BP: (93-105)/(56-71) Gen: NAD, well-appearing , baseline mentation HEENT: NCAT, PERRL, EOMIs, oropharynx benign, MMM. Neck: no LAD, no stiffness. CV: RRR, nl S1/S2, no M/R/G. Resp: CTAB, good air entry, no wheezing Abd: active bowel sounds, soft, nontender, no hepatosplenomegaly Back: dressing intact Neuro: Non focal Labs: AM BMP Na 141 K 2.9 Cl 104 CO2 21 AG 16 Creat 0.27 Ca 7.8 AM CBC WBC 7.7 Hb 11.6 Plt 342 Impression: 18 yo young lady with spastic quadriplegia s/p TBI, now admitted under neurosurgery formanagement of infected baclofen pump explantation site s/p washout 2 days ago. We are being consulted to help with her medical management. Her K was low this AM at 2.9 likely secondary to vomiting. She has since been tolerating PO intake.We increased her K in MIVF to 40, and after the first run of IV K, the repeat was 3.6. We continuedto allow her to PO, we gave her a 500mg single oral dose of K-Phos orally, and continued the same MIVF. K should be repeated later today and then tomorrow AM, but would not do further runs of IV K atthis time Secondly, the culture came back with non specific pseudomonas. Given the green nature (reportedly) of the fluid drainage, and the absence of other positive growths, I would treat this as pathogenic and cover for it specifically. It would be appropriate to narrow from three antibiotics to zosyn + vanc, which will allow good anerobic, pseudomonal, gram negative coverage while still covering for possible gram positives. We do not yet have the sensitivities, so there there is an argument for doublecovering the pseudomonas till that time. However I think it would be reasonable to just use the above mentioned coverage and await the sensitivities. Recommendations: FEN- -continue MIVF with D5 NS + 40K -use 500mg K-phos oral doses upto QID as needed for persistent low K, if she is able to PO -Recheck K tonight and tomorrow AM -Maintain Mg and P in normal levels in meanwhile (so check BMP + Mg + P each time) ID- -Switch antibiotics to Zosyn + Vanc -Follow up sensitivities Mitch Dean MD Attending Staff New Consult Documentation We have been asked to see this patient in consultation by Dr. Burciaga from Neurosurgery. Please see Dr. Dean's note for details of the patient history of presentation and data. I have discussed, reviewed and agree with the documented history with ROS, social and family history, medication list, physical findings, labs/studies, Assessment and Plan of care. I have examined the patient myself and reviewed all labs and studies personally. Additions to the history, physical, assessment and plan include the followin yo young lady with spastic quadriplegia s/p TBI, now admitted under neurosurgery for management of infected baclofen pump explantation site s/p washout 2 days ago. Course notable for hypokalemia, NBNB emesis, and culture now growing pseudomonas. Issues/Reccommendations: ??? Hypokalemia - Agree with potassium repletion as above. - Magnesium is low normal and would replete (1 gm IV x1 should be sufficient) as this will help in potassium replacement. - Low phos also noted. Would also benefit from neutro-phos when able to tolerate PO. Would repeat phos level next 24 hours, may need IV KPhos if remains low and unable to tolerate PO intake. ??? Emesis: NBNB. Etiology unclear. Possible mild epigastric TTP on exam (? If patient grimaced), but no current clinical concern for acute abdominal process. LFTs and Lipase were normal. Per her daycare sizing machine tender, may be related to administration of oxycodone as this has been issue in the past. Cannotexclude component of baclofen withdrawal, but less likely. No current concern for acute ENVIRONMENTAL PROTECTION SPECIALIST process. - Serial exams. Ensure daily BMs while on opiod pain medication. - Consider further eval (repeat cultures, imaging, etc) pending clinical course. We will continue to follow with you. - Would check baseline ECG for QTc if continues to receive significant quantities of anti-emetics (e.g. Zofran). ??? Wound infection s/p baclofen pump removal on Ctx, flagyl, vanco. Wound culture now growing pseudomonas. Concern for post-op CSF leak noted. Agree with stopping CTX and flagyl and changing to anti-pseudomonal agent (CTX will not treat). If escobar-sensitive pseudomonas and no foreign bodies remain, than monotherapy (e.g. Ceftazidime alone) may be appropriate. If sensitivities return with multiple drug resistance and/or foreign bodies remain in wound site, than double coverage of pseudomonas likely indicated (e.g. ceftaz and an aminoglycoside). Zosyn would be an appropriate antiobiotic for pseudomonas, although it may not have the best ENVIRONMENTAL PROTECTION SPECIALIST penetration unless meninges are actually inflamed. - Agree with changing antibiotics for improved pseudomonal coverage. Ceftazidime (as ordered by primary team would be appropriate) and likely better choice than zosyn if consistent CSF penetration isdesired. Can d/c CTX. - If culture do not grow any other organisms after 48 hours, can likely d/c vanc and anaerobic coverage tomorrow. - Agree with primary team decision for ID consult. Remainder as above. Thanks for this interesting consult and we will continue to follow with you. Lucho Smith MD * Plan of Care - Linsey Mcintyre RN - 05/22/2014 8:51 AM EST Problem: General Plan of Care Goal: Plan of Care Review Outcome: Ongoing (Interventions Implemented as Appropriate) 05/22/14633 Plan of Care Review Plan of Care Outcome Status ongoing (interventions implemented as appropriate) Progress declining Coping/Psychosocial Response Interventions Plan of Care Reviewed with patient;mother OUTCOME EVALUATION NOTE: OUTCOME SUMMARY: Care assumed at 1900, Tana resting quietly in bed. No distress noted at that time. Mom assisting with changing of diaper and turning. Tana medicated with tylenol and oxycodone at 0030 and returned to sleep. At 0430 Tana woke and began vomiting. Vomiting started with undigested food, then retching and brownish fluid only. MD called for antiemetic and UT tylenol. Zofran given when order receivedand med available. EJ line dressing was changed due to being non- occlusive. Unable to draw am labs from EJ and IVT fallon labs periferal. K 2.9, Dr Boyd notified. Mom at bedside all night. PLAN MOVING FORWARD: Continue to monitor vomiting and neuro signs. Continue with abx as ordered INDIVIDUALIZED FALL PREVENTION: Assistance: Full assist, mom at bedside. home care and home health aides teacher will be coming in today to relieve mom for a period of time. Supervision: RN checks and masimo, mom at bedside all shift. Surveillance: The registered nurse will be responsible for purposeful rounding on each of their patients. Purposeful rounding will address the patient's pain/comfort, safety, and presence of family/observer at bedside. Purposeful rounding performed hourly between 0800 and 1800, and every other hourbetween 2000 and 0800. CPG GOAL OUTCOME EVALUATION: Goal: Individualization and Mutuality Outcome: Ongoing (Interventions Implemented as Appropriate) 05/22/1434 Individualization Patient Specific Preferences likes syringes or spoons with liquids Patient Specific Interventions turns as needed through the night. Mutuality/Individual Preferences What anxieties, fears or concerns do you have about your health or care? infection control What information would help us give you more personalized care? mom will stay and assist in care. Goal: Fall Prevention-Safe Patient Handling Outcome: Ongoing (Interventions Implemented as Appropriate) Goal: Infection Control Outcome: Ongoing (Interventions Implemented as Appropriate) Goal: Discharge Needs Assessment Outcome: Ongoing (Interventions Implemented as Appropriate) 05/22/14 0634 Discharge Needs Assessment Concerns to be Addressed no discharge needs identified Readmission Within the Last 30 Days clinical decline Equipment Needed After Discharge none Current Health Anticipated Changes Related to Illness none Living Environment Transportation Available family or friend will provide;car Self-Care Equipment Currently Used at Home none Problem: Skin Integrity Impairment, Risk/Actual (Adult, Obstetrics) Goal: Identify Signs and Symptoms and Related Risk Factors Signs and symptoms and related risk factors are identified upon initiation of Human Response Clinical Practice Guideline (CPG) Outcome: Ongoing (Interventions Implemented as Appropriate) Goal: Skin Integrity/Wound Healing Patient will demonstrate the desired outcomes. Outcome: Ongoing (Interventions Implemented as Appropriate) 05/22/14 0834 Skin Integrity Impairment, Risk/Actual (Adult, Obstetrics) Skin Integrity/Wound Healing making progress toward outcome Problem: Infection, Risk/Actual (Adult, Obstetrics) Goal: Identify Signs and Symptoms and Related Risk Factors Signs and symptoms and related risk factors are identified upon initiation of Human Response Clinical Practice Guideline (CPG) Outcome: Ongoing (Interventions Implemented as Appropriate) Goal: Infection Prevention/Resolution/Control Patient will demonstrate the desired outcomes. Outcome: Ongoing (Interventions Implemented as Appropriate) 05/22/14 0834 Infection, Risk/Actual (Adult, Obstetrics) Infection Prevention/Resolution/Control making progress toward outcome * Plan of Care - Nathalie Weller RN - 05/21/2014 8:08 PM EST Problem: General Plan of Care Goal: Plan of Care Review Outcome: Ongoing (Interventions Implemented as Appropriate) 05/21/14 0549 Plan of Care Review Plan of Care Outcome Status ongoing (interventions implemented as appropriate) Progress improving Coping/Psychosocial Response Interventions Plan of Care Reviewed with patient;mother OUTCOME EVALUATION NOTE: OUTCOME SUMMARY: Pt arrived on unit with family in no apparent distress. She is tolerating IV abx through her IJ. POpain meds administered per mom's request. Wound dressing on back remains dry, reinforced approx 1500. PRN valium administered 1543 due to increased agitation. PLAN MOVING FORWARD: Monitor neuro status, monitor pain. INDIVIDUALIZED FALL PREVENTION: Assistance: Total care Supervision: RN and moraima Surveillance: The registered nurse will be responsible for purposeful rounding on each of their patients. Purposeful rounding will address the patient's pain/comfort, safety, and presence of family/observer at bedside. Purposeful rounding performed hourly between 0800 and 1800, and every other hourbetween 2000 and 0800. CPG GOAL OUTCOME EVALUATION: * Op Note - Freddy Burciaga MD - 05/21/2014 11:53 AM EST [facility] [place] Operative Note Patient Name: Tana Shelton : [id number] MR#: [id number] Case Date: 05/20/2014 - 05/21/2014 Surgeon: Surgeon(s) and Role: * Freddy Burciaga MD - Primary * Dayday Humphrey MD - Resident-Surgeon Mauricio * Gaby Boyd MD - Resident-Surgeon Mauricio Preoperative diagnosis: lumbar wound infection Postoperative diagnosis: lumbar wound infection Procedure(s): @I & D, OPEN, DEEP ABSCESS, LUMBAR, SACRAL, LUMBOSACRAL @REPAIR DURAL\CSF LEAK,NOT REQUIRING LAMINECTOMY Procedures: 1. Wound exploration and I and D. 2. Repair of CSF leak not requiring laminectomy. 3. Retrieval of retained baclofen pump catheter. Indications: Ms. Shelton is status post removal of a Baclofen pump and presents with drainage of both purulent fluid and clear fluid from her lumbar incision. She was brought to the Operating Room for the above procedures. Description of the Operative Procedure: The patient was brought to the Operating Room and general endotracheal anesthesia induced. The patient had received a dose of vancomycin in the Emergency Room. She was placed in the lateral decubitus position, left side down, on a beanbag with an axillary roll. All pressure points were padded. The lumbar region and right flank were prepped with betadine, and the brissa of the lumbar incision were removed. The area was immediately swabbed and sent for microanalysis. It was copiously irrigated with antibiotic-containing solution. It was noted that CSF was welling up from a defect in the fascia. The previously placed suture was no longer competent. Using 2-0 Vicryl suture, this defect was closed so that it was watertight. No leakage was seen with Valsalva. Concurrently, we used fluoroscopy to identify a segment of retained catheter in the right flank. Two separate small incisions were made in an effort to identify this catheter. Ultimately we were able to find the catheter and traced it back along its full length. The catheter was removed as a single piece. Both wounds were again irrigated and then closed in layers. The deep dermal layer was closed with interrupted Vicryl sutures, and all incisions were then finally closed with 4-0 running Nurolon. Sterile dressings were applied and the patient brought to the Recovery Area. Attestation: Case Date: 05/20/2014 - 05/21/2014 I was present and I participated during the entire procedure (does not need to include opening and closing). Freddy Burciaga MD 05/21/2014 * Plan of Care - Dana Foster RN - 05/21/2014 5:50 AM EST Problem: General Plan of Care Goal: Plan of Care Review Outcome: Ongoing (Interventions Implemented as Appropriate) 05/21/14 0549 Plan of Care Review Plan of Care Outcome Status ongoing (interventions implemented as appropriate) Progress improving Coping/Psychosocial Response Interventions Plan of Care Reviewed with patient;mother Problem: Skin Integrity Impairment, Risk/Actual (Adult, Obstetrics) Goal: Identify Signs and Symptoms and Related Risk Factors Signs and symptoms and related risk factors are identified upon initiation of Human Response Clinical Practice Guideline (CPG) 05/21/14 0549 Skin Integrity Impairment, Risk/Actual Personal Related Risk Factors (Skin Integrity Impairment, Risk/Actual) developmental factors Physiological Related Risk Factors (Skin Integrity Impairment, Risk/Actual) abnormal tissue growth;sensory impairment Treatment Related Related Risk Factors (Skin Integrity Impairment, Risk/Actual) invasive catheters Problem: Infection, Risk/Actual (Adult, Obstetrics) Goal: Identify Signs and Symptoms and Related Risk Factors Signs and symptoms and related risk factors are identified upon initiation of Human Response Clinical Practice Guideline (CPG) 05/21/14 0549 Infection, Risk/Actual Personal Related Risk Factors (Infection, Risk/Actual) stress Environmental Related Risk Factors (Infection, Risk/Actual) healthcare- associated;hospital acquired(nosocomial) Physiological Related Risk Factors (Infection, Risk/Actual) chronic illness;implanted device Treatment Related Related Risk Factors (Infection, Risk/Actual) invasive device/lines/tubes Signs and Symptoms (Infection, Risk/Actual) malaise/weakness;pain/pressure;purulent drainage Comments: Pt arrived from PACU on monitored bed with 2 RNs at 0130. Hooked into ICU monitoring, VSS stable, tachy in 120s, RA. Pt able to communicate saying yes and no appropriately. Cognitive delay at baseline, quadriplegic, hip dysplasia. Mother into see pt right away, will sleep in waiting room tonight with son, did express desire to room in with pt in the future. Ceftrixone given per JUN. Pt lethargic and having some difficulty swallowing so PO meds currently held overnight, communicated with MD to acquire IV PRN pain medication. Pt cultured in ED, results pending. Sacral mepilex applied, some blanchable redness on sacrum, adult diaper removed. Old baclofen pump site covered with gauze dressing, some dried serosanguinous drainage. * Consult Note - Freddy Burciaga MD - 05/20/2014 10:36 PM EST NEUROSURGERY CONSULT H&P CC: Leaking from incision, Fever HPI: Asked by Dr Louie to see Tana Shelton, a 18 y.o. female for evaluation of a fever and leakingincision. Available records were reviewed. Tana is a 18 year old with a previous TBI and scoliosis s/p removal of baclofen pump 05/11 presenting to the ED with leaking from the back incision. She has also been febrile and reporting pain from the area. We have been asked to evaluate her. History reviewed. No pertinent past medical history. Past Surgical History Procedure Laterality Date ??? Back surgery scoliosis repair ??? Hip osteotomy bilateral ??? Reconstruc hip socket, resec fem head 08/15/2010 ??ACETABULOPLASTY (GIRDLESTONE), RESECTION FEMORAL HEAD, BILATERAL performed by YAS OLIVER [facility] MAIN OR ??? Apply of hip casts, two legs 08/15/2010 CAST APPLICATION, HIP SPICA, BOTH LEGS performed by YAS OLIVER at [facility] MAIN OR ??? Removal deep implant 08/15/2010 REMOVAL IMPLANT, DEEP, BRUNO performed by YAS OLIVER at [facility] MAIN OR ??? Osteotomy femur shaft/supracondy 08/15/2010 ??OSTEOTOMY, FEMUR SHAFT OR SUPRACONDYLAR W/O FIXATION performed by YAS OLIVER at [facility] MAIN OR ??? Remove spinal canal catheter N/A 05/11/2014 REMOVAL OF INTRATHECAL OR EPIDURAL CATHETER performed by Jamaal Samuel MD at [facility] MAIN OR ??? Remove infusn device/pump N/A 05/11/2014 REMOVAL OF SPINE INFUSION PUMP performed by Jamaal Samuel MD at [facility] MAIN OR No family history on file. History Social History ??? Marital Status: Single Spouse Name: N/A Number of Children: N/A ??? Years of Education: N/A Social History Main Topics ??? Smoking status: Never Smoker ??? Smokeless tobacco: Never Used Comment: NO SMOKERS IN THE HOME ??? Alcohol Use: No ??? Drug Use: No ??? Sexual Activity: None Other Topics Concern ??? None Social History Narrative No current facility-administered medications on file prior to encounter. Current Outpatient Prescriptions on File Prior to Encounter Medication Sig Dispense Refill ??? acetaminophen (TYLENOL) 650 mg/20.3 mL Solution Take 22.3 mLs by mouth every 6 hours. ??? oxyCODONE (ROXICODONE) 5 mg Tablet Take 1-2 tablets by mouth every 4 hours as needed for Pain (PAIN) for up to 30 days. 30 tablet 0 ??? diaZEPam (VALIUM) 5 mg/5 mL (5 mL) Solution Take 5 mLs by mouth 2 times daily. 100 mL 0 ??? levonorgestrel-ethinyl estradiol (INTROVALE) 0.15-30 mg-mcg per tablet Take 1 tablet by mouth daily. ??? POLYETHYLENE GLYCOL 3350 (MIRALAX ORAL) Take by mouth daily. ??? baclofen (LIORESAL) 10 mg tablet 10 MG = 1 Tablet(s), PO, QPM ??? ibuprofen (ADVIL;MOTRIN) 100 mg/5 mL suspension 300 mg, PO, Q6H prn Allergies Allergen Reactions ??? Fluoxetine Other (See Comments) HIVES, HEART RACES ROS: Unable to assess PE: Temp: [37.2 ??C (98.9 ??F)-38.1 ??C (100.6 ??F)] Heart Rate: [138-166] Resp: [12-32] BP: (110-141)/(61-122) SpO2: [98 %-100 %] General: Awake, alert, lying in bed Neuro: MS - Patient is minimally verbal, laying in bed crying Motor - Patient is spastic at baseline in all 4 extremities. She is moving her legs and arms but minimally Sensory - Reacts to stimulation on all 4 extremities CN - PERRL, face symmetric, passive EOM appear intact, would not cooperate with exam, Incision - Incision has erythema and some edema surrounding it. The gauze covering it is green tinged. The anterior looks incision looks clean, healing well without surrounding erythema or edema Recent Results (from the past 24 hour(s)) ELECTROLYTES PANEL Result Value Range Sodium 138 135 - 145 mmol/L Potassium 3.7 3.5 - 5.0 mmol/L Chloride 101 98 - 107 mmol/L CO2 20 (*) 22 - 31 mmol/L Anion Gap 17 (*) 5 - 15 mmol/L BUN Result Value Range BUN 9 8 - 18 mg/dL CREATININE Result Value Range Creatinine 0.37 (*) 0.70 - 1.20 mg/dL Estimated GFR >60 >=60 GLUCOSE, RANDOM Result Value Range Glucose Lvl 81 60 - 199 mg/dL HEMOGRAM Result Value Range WBC 8.4 4.0 - 10.0 x10(3)/mcL RBC 4.80 3.93 - 5.22 x10(6)/mcL Hemoglobin 14.0 11.2 - 15.7 gm/dL Hematocrit 42.0 34.0 - 45.0 % MCV 87.5 79.0 - 94.0 fL MCH 29.2 26.6 - 32.2 pg MCHC 33.3 32.0 - 36.5 gm/dL Platelets 405 (*) 145 - 370 x10(3)/mcL RDWSD 44.5 35.0 - 46.0 fL RDWCV 13.9 10.9 - 14.4 % MPV 10.8 9.0 - 12.0 fL DIFFERENTIAL, AUTOMATED Result Value Range Neutrophils % 71.0 Neutr Abs (ANC) 5.94 1.50 - 6.30 x10(3)/mcL Lymphocytes % 21.5 Lymphocytes Abs 1.8 1.0 - 3.6 x10(3)/mcL Monocytes % 6.0 Monocyte Abs 0.5 0.2 - 1.0 x10(3)/mcL Eosinophils % 1.2 Eosinophils Abs 0.1 0.0 - 0.5 x10(3)/mcL Basophils % 0.2 Basophils Abs 0.0 0.0 - 0.2 x10(3)/mcL Immature Gran % 0.10 Debora Gran Abs 0.01 0.00 - 0.05 x10(3)/mcL GREEN TUBE HOLD Result Value Range Green Hold Sample in lab. L-LACTATE2 WHOLE BLOOD Result Value Range Lactate WB 1.6 0.5 - 2.2 mmol/L URINALYSIS WITH MICROSCOPIC Result Value Range Glucose UA Negative Negative mg/dL Protein UA Negative Negative mg/dL Bilirubin UA Negative Negative mg/dL Urobilinogen UA >=4.0 (*) Normal mg/dL pH UA 7.0 5.0 - 8.0 Blood UA Negative Negative mg/dL Ketones UA 20 (*) Negative mg/dL Nitrite UA Negative Negative Leukocytes UA Negative Negative mcL Appearance UA Hazy (*) Clear Spec [place]aca UA 1.026 1.002 - 1.030 Color UA Yellow Yellow RBC UA 32 (*) 0 - 4 /HPF WBC UA 5 0 - 5 /HPF Bacteria UA Rare (*) None /HPF Squam Epith UA 1 <=4 /HPF Trans Epith UA 1 <=1 /HPF Amorph Adina UA Rare (*) None /HPF TISSUE CULTURE Result Value Range Tissue Culture Value: Patient Name: TANA SHELTON Ordered By: Freddy BURCIAGA MR#: [id number] LOC: OR /Sex: 1995 (18 years), Female PROCEDURE: Tissue Culture SOURCE: Back COLLECTED: 05/20/2014 20:20 FREE TEXT SOURCE: Lumbar Wound Culture STARTED: 05/20/2014 22:13 STAINS / PREPARATIONS Gram Stain Report Verified:05/20/2014 22:28 Few White Blood Cells seen No microorganisms seen. TISSUE CULTURE Result Value Range Tissue Culture Value: Patient Name: TANA SHELTON Ordered By: Freddy BURCIAGA MR#: [id number] LOC: OR /Sex: 1995 (18 years), Female PROCEDURE: Tissue Culture SOURCE: Back COLLECTED: 05/20/2014 21:25 FREE TEXT SOURCE: Lumbar wound Culture #2 STARTED: 05/20/2014 22:12 STAINS / PREPARATIONS Gram Stain Report Verified:05/20/2014 22:31 Few White Blood Cells seen No microorganisms seen. A/P: 18 y.o. female with post-op infection with CSF Leak. - Triple Abx - Will proceed to OR for washout and closure Neurosurgery Attending addendum: I have seen and independently examined the above patient. I have reviewed the resident's history, physical exam, and impressions. I agree with the above, with the following additions/amendments: Purulent material from lumbar wound, mixed with CSF. Acting normally per mother - not clinically meningitic. To OR for washout,wound repair, broad spectrum antibiotics. Travis Burciaga MD Neurosurgery * ED Triage - Mariposa Huntley RN - 05/20/2014 4:21 PM EST Pt brought to ED by Mother wit reports of spinal fluid leak s/p surgery last week. Pt underwesnt surgery for spinal catheter removal and ITB pump removal last . Mom notes normal post op course until yesterday when she noticed a little green drainage on bandage last night. Mom notes this morning drainage has signficantly increased and notes green, clear discharge. Denies fevers at home. Normal PO intake for Pt. No reports of pain or changes from Neurologic baseline. Pt is alert and at baseline. Skin w/p/d, RR even and unlabored. documented in this encounter Plan of Treatment Upcoming Encounters Date Type Department Care Team (Late st Contact Info) Description 11/19/2023 2:30 PM EDT TH Visit (TeleHealth) [place] [address] Lilli Joy APRN [facility] [place] [address] 11/30/2023 12:50 PM EDT [place] [address] 12/03/2023 12:30 PM EDT Office [place] [address] Hollie Ambriz MD [facility] [place] [address] Pending Results Name Type Priority Associated Diagnoses Date /Time XR Fluoro OR c-arm storage only Imaging Routine 05/20/2014 10:59 PM EST Scheduled Orders Name Type Priority Associated Diagnoses Orde r Schedule XR Fluoro OR c-arm storage only Imaging Routine Once PRN (for Ra diant use) for 1 Occurrences starting 05/20/2014 until 05/20/2014 documented as of this encounter Procedures Procedure Name Priority Date/Time Associated Diagnosis Comments ECG SCAN 06/03/2014 12:00 AM EST HEMOGRAM Routine 06/02/2014 5:55 AM EST DIFFERENTIAL, AUTOMATED Routine 06/02/19 15 5:55 AM EST CBC (WITH DIFF) Routine 06/02/2014 5:55 AM EST BASIC METABOLIC PANEL (NON-FASTING) Routine 06/02/2014 5:55 AM EST HEMOGRAM Routine 06/01/2014 12:40 PM EST DIFFERENTIAL, AUTOMATED Routine 06/01/19 15 12:40 PM EST SEDIMENTATION RATE Routine 06/01/2014 12 :40 PM EST CBC (WITH DIFF) Routine 06/01/2014 12:40 PM EST CRP, CARDIAC RISK (HS CRP) Routine 06/01/2014 12:40 PM EST BASIC METABOLIC PANEL (NON-FASTING) Routine 06/01/2014 12:40 PM EST HEMOGRAM Routine 05/30/2014 6:50 AM EST DIFFERENTIAL, AUTOMATED Routine 05/30/19 15 6:50 AM EST CBC (WITH DIFF) Routine 05/30/2014 6:50 AM EST BASIC METABOLIC PANEL (NON-FASTING) Routine 05/30/2014 6:50 AM EST HEMOGRAM Routine 05/29/2014 7:13 AM EST DIFFERENTIAL, AUTOMATED Routine 05/29/19 15 7:13 AM EST CBC (WITH DIFF) Routine 05/29/2014 7:13 AM EST BASIC METABOLIC PANEL (NON-FASTING) Routine 05/29/2014 7:13 AM EST HEMOGRAM Routine 05/28/2014 9:00 AM EST DIFFERENTIAL, AUTOMATED Routine 05/28/19 15 9:00 AM EST CBC (WITH DIFF) Routine 05/28/2014 9:00 AM EST VANCOMYCIN, TROUGH Timed 05/28/2014 9: 00 AM EST BASIC METABOLIC PANEL (NON-FASTING) Routine 05/28/2014 9:00 AM EST HEMOGRAM Routine 05/27/2014 5:30 AM EST DIFFERENTIAL, AUTOMATED Routine 05/27/19 15 5:30 AM EST CBC (WITH DIFF) Routine 05/27/2014 5:30 AM EST BASIC METABOLIC PANEL (NON-FASTING) Routine 05/27/2014 5:30 AM EST ANAEROBIC CULTURE Routine 05/26/2014 5:3 0 PM EST ANAEROBIC CULTURE Routine 05/26/2014 5:3 0 PM EST ANAEROBIC CULTURE Routine 05/26/2014 5:3 0 PM EST TISSUE CULTURE, AEROBIC & ANAEROBIC Routine 05/26/2014 5:30 PM EST TISSUE CULTURE, AEROBIC & ANAEROBIC Routine 05/26/2014 5:30 PM EST TISSUE CULTURE, AEROBIC & ANAEROBIC Routine 05/26/2014 5:30 PM EST TISSUE CULTURE Routine 05/26/2014 5:30 PM EST TISSUE CULTURE Routine 05/26/2014 5:30 PM EST TISSUE CULTURE Routine 05/26/2014 5:30 PM EST @I & D, OPEN, DEEP ABSCESS, LUMBAR, SACRAL, LUMBOSACRAL (WRVU 12.64) 05/26/2014 4:18 PM EST abscess; remove possible retained catheter ABO/RH TYPING STAT 05/26/2014 12:40 PM EST ANTIBODY SCREEN STAT 05/26/2014 12:40 PM EST TYPE AND SCREEN ([facility]) STAT 05/26/2014 12:[address] LUMBAR SPINE RECONSTRUCTION STAT 05/26/2014 12:[address] ABDOMEN AND PELVIS WO CONTRAST STAT 05/26/2014 12:04 PM EST I & D, OPEN, DEEP ABSCESS, LUMBAR, SACRAL, LUMBOSACRAL Routine 05/26/2014 9:34 AM EST HEMOGRAM Routine 05/26/2014 4:15 AM EST DIFFERENTIAL, AUTOMATED Routine 05/26/19 15 4:15 AM EST CBC (WITH DIFF) Routine 05/26/2014 4:15 AM EST BASIC METABOLIC PANEL (NON-FASTING) Routine 05/26/2014 4:[address] PICC LINE: CONTACT VASCULAR ACCESS Routine 05/25/2014 4:01 PM EST XR PICC PLACEMENT OVER 5 YEARS (IV TEAM) Routine 05/25/2014 3:46 PM EST MRI THORACIC SPINE WITHOUT CONTRAST Routine 05/25/2014 1:26 PM EST MRI CERVICAL SPINE WO CONTRAST Routine 05/25/2014 1:26 PM EST HEMOGRAM Routine 05/25/2014 5:00 AM EST DIFFERENTIAL, AUTOMATED Routine 05/25/19 15 5:00 AM EST CBC (WITH DIFF) Routine 05/25/2014 5:00 AM EST BASIC METABOLIC PANEL (NON-FASTING) Routine 05/25/2014 5:00 AM EST HEMOGRAM Routine 05/24/2014 12:42 PM EST DIFFERENTIAL, AUTOMATED Routine 05/24/19 15 12:42 PM EST CBC (WITH DIFF) Routine 05/24/2014 12:42 PM EST BASIC METABOLIC PANEL (NON-FASTING) Routine 05/24/2014 12:42 PM EST VANCOMYCIN, TROUGH Timed 05/24/2014 12 :29 PM EST ELECTROLYTES PANEL Routine 05/23/2014 12 :30 AM EST ELECTROLYTES PANEL Routine 05/22/2014 6: 20 PM EST PHOSPHORUS STAT 05/22/2014 12:45 PM EST MAGNESIUM STAT 05/22/2014 12:45 PM EST LIPASE STAT 05/22/2014 12:45 PM EST AMYLASE STAT 05/22/2014 12:45 PM EST COMPREHENSIVE METABOLIC PANEL (NON-FASTING) STAT 05/22/2014 12:45 PM EST HEMOGRAM Routine 05/22/2014 6:10 AM EST DIFFERENTIAL, AUTOMATED Routine 05/22/19 15 6:10 AM EST CBC (WITH DIFF) Routine 05/22/2014 6:10 AM EST VANCOMYCIN, TROUGH Timed 05/22/2014 6: 10 AM EST BASIC METABOLIC PANEL (NON-FASTING) Routine 05/22/2014 6:10 AM EST HEMOGRAM Routine 05/21/2014 4:23 AM EST DIFFERENTIAL, AUTOMATED Routine 05/21/19 15 4:23 AM EST CBC (WITH DIFF) Routine 05/21/2014 4:23 AM EST BASIC METABOLIC PANEL (NON-FASTING) Routine 05/21/2014 4:23 AM EST REPAIR DURAL\CSF LEAK,NOT REQUIRING LAMINECTOMY Routine 05/20/2014 10:22 PM EST RELIABILITY TECHNICIAN CULTURE Routine 5 10:01 PM EST ANAEROBIC CULTURE Routine 05/20/2014 9:2 5 PM EST TISSUE CULTURE, AEROBIC & ANAEROBIC Routine 05/20/2014 9:25 PM EST TISSUE CULTURE Routine 05/20/2014 9:25 PM EST @REPAIR DURAL\CSF LEAK,NOT REQUIRING LAMINECTOMY (WRVU 12.65) 05/20/2014 8:20 PM EST lumbar wound infection @I & D, OPEN, DEEP ABSCESS, LUMBAR, SACRAL, LUMBOSACRAL (WRVU 12.64) 05/20/2014 8:20 PM EST lumbar wound infection ANAEROBIC CULTURE Routine 05/20/2014 8:2 0 PM EST TISSUE CULTURE, AEROBIC & ANAEROBIC Routine 05/20/2014 8:20 PM EST TISSUE CULTURE Routine 05/20/2014 8:20 PM EST I & D, OPEN, DEEP ABSCESS, LUMBAR, SACRAL, LUMBOSACRAL Routine 05/20/2014 7:27 PM EST URINALYSIS WITH REFLEX CULTURE STAT 05/20/2014 6:46 PM EST URINE CULTURE STAT 05/20/2014 6:46 PM EST L-LACTATE2 WHOLE BLOOD Routine 5 6:17 PM EST BLOOD CULTURE STAT 05/20/2014 6:00 PM EST HEMOGRAM STAT 05/20/2014 5:15 PM EST DIFFERENTIAL, AUTOMATED STAT 05/20/19 15 5:15 PM EST GREEN TUBE HOLD STAT 05/20/2014 5:15 PM EST CREATININE STAT 05/20/2014 5:15 PM EST BLOOD CULTURE STAT 05/20/2014 5:15 PM EST CBC (WITH DIFF) STAT 05/20/2014 5:15 PM EST BUN STAT 05/20/2014 5:15 PM EST GLUCOSE, RANDOM STAT 05/20/2014 5:15 PM EST ELECTROLYTES PANEL STAT 05/20/2014 5: 15 PM EST documented in this encounter Results * SCAN DOC: ECG (06/03/2014 12:00 AM EST) Scanning Provider MEDIA MGR SCAN EXT O RDR/RSLT * Differential, Automated (06/02/2014 5:55 AM EST) Neutrophils % 64.5 % CERNER MILLENNIUM Neutr Abs (ANC) 4.75 1.50 - 6.30 x10(3)/mcL CERNER MILLENNIUM Lymphocytes % 24.3 % CERNER MILLENNIUM Lymphocytes Abs 1.8 1.0 - 3.6 x10(3)/mcL CERNER MILLENNIUM Monocytes % 6.9 % CERNER MILLENNIUM Monocyte Abs 0.5 0.2 - 1.0 x10(3)/mcL CERNER MILLENNIUM Eosinophils % 3.7 % CERNER MILLENNIUM Eosinophils Abs 0.3 0.0 - 0.5 x10(3)/mcL CERNER MILLENNIUM Basophils % 0.5 % CERNER MILLENNIUM Basophils Abs 0.0 0.0 - 0.2 x10(3)/mcL CERNER MILLENNIUM Immature Gran % 0.10 % CERN ER MILLENNIUM Comment: Immature granulocytes(IG's)percentage and absolute count will include metamyelocytes, myelocytes, and promyelocytes. Blood smears from CBCs yielding IG's will be scanned manually for concordance. If this scan disagrees with the automated IG or if promyelocytes are noted, a manual differential will be performed. Debora Gran Abs 0.01 0.00 - 0.05 x10(3)/mcL CERNER MILLENNIUM Blood specimen (specimen) 06/02/2014 5:55 AM EST 06/02/2014 6:09 AM EST Narrative Resulting Agency Comment Spec In Lab S Alek Burciaga MD HEMATOLOGY ORDERABLE S CERNER MILLENNIUM * (ABNORMAL) Hemogram (06/02/2014 5:55 AM EST) WBC 7.4 4.0 - 10.0 x10(3)/mcL CERNER MILLENNIUM RBC 3.85(L) 3.93 - 5.22 x10(6)/mcL CERNER MILLENNIUM Hemoglobin 11.0(L) 11.2 - 15.7 gm/dL CERNER MILLENNIUM Hematocrit 33.8(L) 34.0 - 45.0 % CERNER MILLENNIUM MCV 87.8 79.0 - 94.0 fL CERNER MILLENNIUM MCH 28.6 26.6 - 32.2 pg CERNER MILLENNIUM MCHC 32.5 32.0 - 36.5 gm/dL CERNER MILLENNIUM Platelets 362 145 - 370 x10(3)/mcL CERNER MILLENNIUM RDWSD 45.9 35.0 - 46.0 fL CERNER MILLENNIUM RDWCV 14.3 10.9 - 14.4 % CERNER MILLENNIUM MPV 10.5 9.0 - 12.0 fL CERNER MILLENNIUM Blood specimen (specimen) 06/02/2014 5:55 AM EST 06/02/2014 6:09 AM EST Narrative Resulting Agency Comment Spec In Lab S Alek Burciaga MD HEMATOLOGY ORDERABLE S CERNER MILLENNIUM * (ABNORMAL) Basic Metabolic Panel (non-fasting) (06/02/2014 5:55 AM EST) [facility] Glucose Lvl 75 60 - 199 mg/dL CERNER MILLENNIUM Comment:Diabetes: >=200 mg/d L plus symptoms BUN 5(L) 8 - 18 mg/dL CERNER MILLENNIUM Creatinine 0.30(L) 0.70 - 1.20 mg/dL CERNER MILLENNIUM Comment: Please note that the pediatric reference intervals supplied above were not validated at [facility]. Results from pediatric patients should be interpreted in conjunction to the patient's age, height and muscle mass. Sodium 139 135 - 145 mmol/L CERNER MILLENNIUM Potassium 4.0 3.5 - 5.0 mmol/L CERNER MILLENNIUM Comment: Please note: ??Patients with WBC >100,000 may have falsely elevated Potassium levels. ??For accurate Potassium quantification in these patients send serum separator tube (gold top) for subsequent determinations. ??Contact the Clinical Chemistry Laboratory if there are any questions. Chloride 104 98 - 107 mmol/L CERNER MILLENNIUM CO2 23 22 - 31 mmol/L CERNER MILLENNIUM Anion Gap 12 5 - 15 mmol/L CERNER MILLENNIUM Calcium 8.6 8.5 - 10.5 mg/dL CERNER MILLENNIUM Estimated GFR >60 >=60 CERNER MILLENNIUM Comment: This estimated GFR (eGFR) value was calculated using the MDRD equation which has been validated on patients between the ages of 18 and 70. The MDRD should not be used to assess kidney function in patients < 18 years of age or in patients with extremes of body mass, or in patients with acute kidney failure. This value should be multiplied by 1.2 for patients. For further information please copy and paste the following links into your internet browser. [email or web address] Blood specimen (specimen) 06/02/2014 5:55 AM EST 06/02/2014 6:09 AM EST Narrative Resulting Agency Comment Spec In Lab S Alek Burciaga MD CHEMISTRY ORDERABLES Performing Organization Address [facility] de Phone Number [facility] * (ABNORMAL) Sedimentation rate (06/01/2014 12:40 PM EST) Sed Rate 46(H) 0 - 20 mm/hr [facility] Blood specimen (specimen) Venous Draw / Unknown 06/01/2014 12:40 PM EST 06/01/2014 12:48 PM EST Narrative Resulting Agency Comment Spec In Lab S Alek Burciaga MD HEMATOLOGY ORDERABLE S Performing Organization Address [facility] de Phone Number [facility] * High Sensitivity CRP (06/01/2014 12:40 PM EST) Pathologist [facility] CRP High Sens 15.4 mg/L [facility] Comment: Interpretations: 1) For accurate cardiac risk assessment, the average of 2 values >2 weeks apart should be obtained (ref 1&2). A value >10 mg/L indicates an inflammatory condition, concentrations >10 mg/L should not be used for cardiac risk assessment. ?<1.0 mg/L: low risk ?1.0 - 3.0 mg/L: moderate risk ?>3.0 mg/L: high risk groups for future cardiovascular events 2) The general reference range of apparently healthy individuals using this test is <5.0 mg/L (derived from the test package insert) References: 1. Mandy BURROWS et. al. ??AHA/CDC Scientific Statement: Markers of Inflammation and Cardiovascular Disease. ??Circulation 2003; 107:499-511 2. Ridker PM. ??Clinical applications of C-reactive protein for cardiovascular disease detection and prevention. ??Circulation 2003; 107:363-369 Blood specimen (specimen) Venous Draw / Unknown 06/01/2014 12:40 PM EST 06/01/2014 12:48 PM EST Narrative Resulting Agency Comment Spec In Lab S Alek Burciaga MD CHEMISTRY ORDERABLES CERNER MILLENNIUM * Differential, Automated (06/01/2014 12:40 PM EST) Neutrophils % 66.8 % CERNER MILLENNIUM Neutr Abs (ANC) 4.96 1.50 - 6.30 x10(3)/mcL CERNER MILLENNIUM Lymphocytes % 20.9 % CERNER MILLENNIUM Lymphocytes Abs 1.6 1.0 - 3.6 x10(3)/mcL CERNER MILLENNIUM Monocytes % 8.7 % CERNER MILLENNIUM Monocyte Abs 0.6 0.2 - 1.0 x10(3)/mcL CERNER MILLENNIUM Eosinophils % 3.0 % CERNER MILLENNIUM Eosinophils Abs 0.2 0.0 - 0.5 x10(3)/mcL CERNER MILLENNIUM Basophils % 0.5 % CERNER MILLENNIUM Basophils Abs 0.0 0.0 - 0.2 x10(3)/mcL CERNER MILLENNIUM Immature Gran % 0.10 % CERN ER MILLENNIUM Comment: Immature granulocytes(IG's)percentage and absolute count will include metamyelocytes, myelocytes, and promyelocytes. Blood smears from CBCs yielding IG's will be scanned manually for concordance. If this scan disagrees with the automated IG or if promyelocytes are noted, a manual differential will be performed. Debora Gran Abs 0.01 0.00 - 0.05 x10(3)/mcL CERNER MILLENNIUM Blood specimen (specimen) 06/01/2014 12:40 PM EST 06/01/2014 12:48 PM EST Narrative Resulting Agency Comment Spec In Lab S Alek Burciaga MD HEMATOLOGY ORDERABLE S Performing Organization Address [facility] [[email or web address]] Co de Phone Number [facility] * (ABNORMAL) Hemogram (06/01/2014 12:40 PM EST) WBC 7.4 4.0 - 10.0 x10(3)/mcL CERNER MILLENNIUM RBC 4.20 3.93 - 5.22 x10(6)/mcL CERNER MILLENNIUM Hemoglobin 12.0 11.2 - 15.7 gm/dL CERNER MILLENNIUM Hematocrit 36.5 34.0 - 45.0 % CERNER MILLENNIUM MCV 86.9 79.0 - 94.0 fL CERNER MILLENNIUM MCH 28.6 26.6 - 32.2 pg CERNER MILLENNIUM MCHC 32.9 32.0 - 36.5 gm/dL CERNER MILLENNIUM Platelets 414(H) 145 - 370 x10(3)/mcL CERNER MILLENNIUM RDWSD 44.9 35.0 - 46.0 fL CERNER MILLENNIUM RDWCV 14.1 10.9 - 14.4 % CERNER MILLENNIUM MPV 10.2 9.0 - 12.0 fL CERNER MILLENNIUM Blood specimen (specimen) 06/01/2014 12:40 PM EST 06/01/2014 12:48 PM EST Narrative Resulting Agency Comment Spec In Lab S Alek Burciaga MD HEMATOLOGY ORDERABLE S Performing Organization Address [place]/[facility] [[email or web address]] Co de Phone Number [facility]ERAL[facility] KEMPI[facility] * (ABNORMAL) Basic Metabolic Panel (non-fasting) (06/01/2014 12:40 PM EST) Glucose Lvl 95 60 - 199 mg/dL CERNER MILLENNIUM Comment:Diabetes: >=200 mg/d L plus symptoms BUN 4(L) 8 - 18 mg/dL CERNER MILLENNIUM Creatinine 0.38(L) 0.70 - 1.20 mg/dL CERNER MILLENNIUM Comment: Please note that the pediatric reference intervals supplied above were not validated at [facility]. Results from pediatric patients should be interpreted in conjunction to the patient's age, height and muscle mass. Sodium 140 135 - 145 mmol/L CERNER MILLENNIUM Potassium 3.9 3.5 - 5.0 mmol/L CERNER MILLENNIUM Comment: Please note: ??Patients with WBC >100,000 may have falsely elevated Potassium levels. ??For accurate Potassium quantification in these patients send serum separator tube (gold top) for subsequent determinations. ??Contact the Clinical Chemistry Laboratory if there are any questions. Chloride 104 98 - 107 mmol/L CERNER MILLENNIUM CO2 25 22 - 31 mmol/L CERNER MILLENNIUM Anion Gap 11 5 - 15 mmol/L CERNER MILLENNIUM Calcium 9.0 8.5 - 10.5 mg/dL CERNER MILLENNIUM Estimated GFR >60 >=60 CERNER MILLENNIUM Comment: This estimated GFR (eGFR) value was calculated using the MDRD equation which has been validated on patients between the ages of 18 and 70. The MDRD should not be used to assess kidney function in patients < 18 years of age or in patients with extremes of body mass, or in patients with acute kidney failure. This value should be multiplied by 1.2 for patients. For further information please copy and paste the following links into your internet browser. [email or web address] Blood specimen (specimen) 06/01/2014 12:40 PM EST 06/01/2014 12:48 PM EST Narrative Resulting Agency Comment Spec In Lab S Alek Burciaga MD CHEMISTRY ORDERABLES CERNER MILLENNIUM * Differential, Automated (05/30/2014 6:50 AM EST) Neutrophils % 69.6 % CERNER MILLENNIUM Neutr Abs (ANC) 5.30 1.50 - 6.30 x10(3)/mcL CERNER MILLENNIUM Lymphocytes % 20.4 % CERNER MILLENNIUM Lymphocytes Abs 1.6 1.0 - 3.6 x10(3)/mcL CERNER MILLENNIUM Monocytes % 6.0 % CERNER MILLENNIUM Monocyte Abs 0.5 0.2 - 1.0 x10(3)/mcL CERNER MILLENNIUM Eosinophils % 3.5 % CERNER MILLENNIUM Eosinophils Abs 0.3 0.0 - 0.5 x10(3)/mcL CERNER MILLENNIUM Basophils % 0.4 % CERNER MILLENNIUM Basophils Abs 0.0 0.0 - 0.2 x10(3)/mcL CERNER MILLENNIUM Immature Gran % 0.10 % CERN ER MILLENNIUM Comment: Immature granulocytes(IG's)percentage and absolute count will include metamyelocytes, myelocytes, and promyelocytes. Blood smears from CBCs yielding IG's will be scanned manually for concordance. If this scan disagrees with the automated IG or if promyelocytes are noted, a manual differential will be performed. Debora Gran Abs 0.01 0.00 - 0.05 x10(3)/mcL CERNER MILLENNIUM Blood specimen (specimen) 05/30/2014 6:50 AM EST 05/30/2014 7:02 AM EST Narrative Resulting Agency Comment Spec In Lab S Alek Burciaga MD HEMATOLOGY ORDERABLE S CERNER MILLENNIUM * (ABNORMAL) Hemogram (05/30/2014 6:50 AM EST) WBC 7.6 4.0 - 10.0 x10(3)/mcL CERNER MILLENNIUM RBC 3.94 3.93 - 5.22 x10(6)/mcL CERNER MILLENNIUM Hemoglobin 11.3 11.2 - 15.7 gm/dL CERNER MILLENNIUM Hematocrit 34.7 34.0 - 45.0 % CERNER MILLENNIUM MCV 88.1 79.0 - 94.0 fL CERNER MILLENNIUM MCH 28.7 26.6 - 32.2 pg CERNER MILLENNIUM MCHC 32.6 32.0 - 36.5 gm/dL CERNER MILLENNIUM Platelets 368 145 - 370 x10(3)/mcL CERNER MILLENNIUM RDWSD 46.3(H) 35.0 - 46.0 fL CERNER MILLENNIUM RDWCV 14.3 10.9 - 14.4 % CERNER MILLENNIUM MPV 10.5 9.0 - 12.0 fL CERNER MILLENNIUM Blood specimen (specimen) 05/30/2014 6:50 AM EST 05/30/2014 7:02 AM EST Narrative Resulting Agency Comment Spec In Lab S Alek Burciaga MD HEMATOLOGY ORDERABLE S CERNER MILLENNIUM * (ABNORMAL) Basic Metabolic Panel (non-fasting) (05/30/2014 6:50 AM EST) Glucose Lvl 82 60 - 199 mg/dL CERNER MILLENNIUM Comment:Diabetes: >=200 mg/d L plus symptoms BUN 4(L) 8 - 18 mg/dL CERNER MILLENNIUM Creatinine 0.29(L) 0.70 - 1.20 mg/dL CERNER MILLENNIUM Comment: Please note that the pediatric reference intervals supplied above were not validated at [facility]. Results from pediatric patients should be interpreted in conjunction to the patient's age, height and muscle mass. Sodium 137 135 - 145 mmol/L CERNER MILLENNIUM Potassium 3.9 3.5 - 5.0 mmol/L CERNER MILLENNIUM Comment: Please note: ??Patients with WBC >100,000 may have falsely elevated Potassium levels. ??For accurate Potassium quantification in these patients send serum separator tube (gold top) for subsequent determinations. ??Contact the Clinical Chemistry Laboratory if there are any questions. Chloride 101 98 - 107 mmol/L CERNER MILLENNIUM CO2 24 22 - 31 mmol/L CERNER MILLENNIUM Anion Gap 12 5 - 15 mmol/L CERNER MILLENNIUM Calcium 8.5 8.5 - 10.5 mg/dL CERNER MILLENNIUM Estimated GFR >60 >=60 CERNER MILLENNIUM Comment: This estimated GFR (eGFR) value was calculated using the MDRD equation which has been validated on patients between the ages of 18 and 70. The MDRD should not be used to assess kidney function in patients < 18 years of age or in patients with extremes of body mass, or in patients with acute kidney failure. This value should be multiplied by 1.2 for patients. For further information please copy and paste the following links into your internet browser. [email or web address] Blood specimen (specimen) 05/30/2014 6:50 AM EST 05/30/2014 7:02 AM EST Narrative Resulting Agency Comment Spec In Lab S Alek Burciaga MD CHEMISTRY ORDERABLES CERNER MILLENNIUM * Differential, Automated (05/29/2014 7:13 AM EST) Neutrophils % 64.1 % [facility]ILLENNI[facility] Neutr Abs (ANC) 4.20 1.50 - 6.30 x10(3)/mcL [facility] Lymphocytes % 23.4 % [facility]ILLENNI[facility] Lymphocytes Abs 1.5 1.0 - 3.6 x10(3)/mcL [facility] MILLENNIUM Monocytes % 8.2 % [facility] MILLENNIUM Monocyte Abs 0.5 0.2 - 1.0 x10(3)/mcL [facility] MILLENNIUM Eosinophils % 3.5 % [facility] MILLENNIUM Eosinophils Abs 0.2 0.0 - 0.5 x10(3)/mcL [facility] MILLENNI[facility] Basophils % 0.5 % [facility] MILLENNIUM Basophils Abs 0.0 0.0 - 0.2 x10(3)/mcL [facility]ER MILLENNIUM Immature Gran % 0.30 % CERN ER MILLENNIUM Comment: Immature granulocytes(IG's)percentage and absolute count will include metamyelocytes, myelocytes, and promyelocytes. Blood smears from CBCs yielding IG's will be scanned manually for concordance. If this scan disagrees with the automated IG or if promyelocytes are noted, a manual differential will be performed. Debora Gran Abs 0.02 0.00 - 0.05 x10(3)/mcL CERNER MILLENNIUM Blood specimen (specimen) 05/29/2014 7:13 AM EST 05/29/2014 7:13 AM EST Narrative Resulting Agency Comment Spec In Lab S Alek Burciaga MD HEMATOLOGY ORDERABLE S Performing Organization Address [facility] [[email or web address]] Co de Phone Number CERALIN TOMASENNIUM * (ABNORMAL) Hemogram (05/29/2014 7:13 AM EST) WBC 6.6 4.0 - 10.0 x10(3)/mcL CERNER MILLENNIUM RBC 3.98 3.93 - 5.22 x10(6)/mcL CERNER MILLENNIUM Hemoglobin 11.4 11.2 - 15.7 gm/dL CERNER MILLENNIUM Hematocrit 35.0 34.0 - 45.0 % CERNER MILLENNIUM MCV 87.9 79.0 - 94.0 fL CERNER MILLENNIUM MCH 28.6 26.6 - 32.2 pg CERNER MILLENNIUM MCHC 32.6 32.0 - 36.5 gm/dL CERNER MILLENNIUM Platelets 330 145 - 370 x10(3)/mcL CERNER MILLENNIUM RDWSD 46.3(H) 35.0 - 46.0 fL CERNER MILLENNIUM RDWCV 14.3 10.9 - 14.4 % CERNER MILLENNIUM MPV 10.6 9.0 - 12.0 fL CERNER MILLENNIUM Blood specimen (specimen) 05/29/2014 7:13 AM EST 05/29/2014 7:13 AM EST Narrative Resulting Agency Comment Spec In Lab S Alek Burciaga MD HEMATOLOGY ORDERABLE S Performing Organization Address [place]/[facility] de Phone Number CERALIN KEMPIUM * (ABNORMAL) Basic Metabolic Panel (non-fasting) (05/29/2014 7:13 AM EST) Glucose Lvl 83 60 - 199 mg/dL CERNER MILLENNIUM Comment:Diabetes: >=200 mg/d L plus symptoms BUN 5(L) 8 - 18 mg/dL CERNER MILLENNIUM Creatinine 0.31(L) 0.70 - 1.20 mg/dL CERNER MILLENNIUM Comment: Please note that the pediatric reference intervals supplied above were not validated at [facility]. Results from pediatric patients should be interpreted in conjunction to the patient's age, height and muscle mass. Sodium 142 135 - 145 mmol/L CERNER MILLENNIUM Potassium 3.9 3.5 - 5.0 mmol/L CERNER MILLENNIUM Comment: Please note: ??Patients with WBC >100,000 may have falsely elevated Potassium levels. ??For accurate Potassium quantification in these patients send serum separator tube (gold top) for subsequent determinations. ??Contact the Clinical Chemistry Laboratory if there are any questions. Chloride 106 98 - 107 mmol/L CERNER MILLENNIUM CO2 22 22 - 31 mmol/L CERNER MILLENNIUM Anion Gap 14 5 - 15 mmol/L CERNER MILLENNIUM Calcium 8.6 8.5 - 10.5 mg/dL CERNER MILLENNIUM Estimated GFR >60 >=60 CERNER MILLENNIUM Comment: This estimated GFR (eGFR) value was calculated using the MDRD equation which has been validated on patients between the ages of 18 and 70. The MDRD should not be used to assess kidney function in patients < 18 years of age or in patients with extremes of body mass, or in patients with acute kidney failure. This value should be multiplied by 1.2 for patients. For further information please copy and paste the following links into your internet browser. http://[email or web address] [email or web address] Blood specimen (specimen) 05/29/2014 7:13 AM EST 05/29/2014 7:13 AM EST Narrative Resulting Agency Comment Spec In Lab S Alek Burciaga MD CHEMISTRY ORDERABLES CERNER MILLENNIUM * Differential, Automated (05/28/2014 9:00 AM EST) Neutrophils % 75.3 % CERNER MILLENNIUM Neutr Abs (ANC) 5.73 1.50 - 6.30 x10(3)/mcL CERNER MILLENNIUM Lymphocytes % 16.6 % CERNER MILLENNIUM Lymphocytes Abs 1.3 1.0 - 3.6 x10(3)/mcL CERNER MILLENNIUM Monocytes % 4.3 % CERNER MILLENNIUM Monocyte Abs 0.3 0.2 - 1.0 x10(3)/mcL CERNER MILLENNIUM Eosinophils % 3.2 % CERNER MILLENNIUM Eosinophils Abs 0.2 0.0 - 0.5 x10(3)/mcL CERNER MILLENNIUM Basophils % 0.3 % CERNER MILLENNIUM Basophils Abs 0.0 0.0 - 0.2 x10(3)/mcL CERNER MILLENNIUM Immature Gran % 0.30 % CERN ER MILLENNIUM Comment: Immature granulocytes(IG's)percentage and absolute count will include metamyelocytes, myelocytes, and promyelocytes. Blood smears from CBCs yielding IG's will be scanned manually for concordance. If this scan disagrees with the automated IG or if promyelocytes are noted, a manual differential will be performed. Debora Gran Abs 0.02 0.00 - 0.05 x10(3)/mcL CERNER MILLENNIUM Blood specimen (specimen) 05/28/2014 9:00 AM EST 05/28/2014 9:23 AM EST Narrative Resulting Agency Comment Spec In Lab S Alek Burciaga MD HEMATOLOGY ORDERABLE S CERNER MILLENNIUM * (ABNORMAL) Hemogram (05/28/2014 9:00 AM EST) WBC 7.6 4.0 - 10.0 x10(3)/mcL CERNER MILLENNIUM RBC 3.90(L) 3.93 - 5.22 x10(6)/mcL CERNER MILLENNIUM Hemoglobin 11.3 11.2 - 15.7 gm/dL CERNER MILLENNIUM Hematocrit 34.7 34.0 - 45.0 % CERNER MILLENNIUM MCV 89.0 79.0 - 94.0 fL CERNER MILLENNIUM MCH 29.0 26.6 - 32.2 pg CERNER MILLENNIUM MCHC 32.6 32.0 - 36.5 gm/dL CERNER MILLENNIUM Platelets 341 145 - 370 x10(3)/mcL CERNER MILLENNIUM RDWSD 47.4(H) 35.0 - 46.0 fL CERNER MILLENNIUM RDWCV 14.5(H) 10.9 - 14.4 % CERNER MILLENNIUM MPV 10.4 9.0 - 12.0 fL CERNER MILLENNIUM Blood specimen (specimen) 05/28/2014 9:00 AM EST 05/28/2014 9:23 AM EST Narrative Resulting Agency Comment Spec In Lab Freddy Burciaga MD HEMATOLOGY ORDERABLE S Performing Organization Address [facility] [[email or web address]] Co de Phone Number [facility] * Vancomycin, trough (05/28/2014 9:00 AM EST) Vanc Trough 16.5 mg/L CERNER MILLENNIUM Comment: Therapeutic range for complicated infections such as bacteremia, endocarditis, osteomyelitis, meningitis, and hospital-acquired pneumonia caused by S. aureus: 15-20 mg/L Therapeutic range for other indications: 10-15 mg/L Toxic: >25mg/L Reference: Vancomycin Therapeutic Monitoring: Review and Recommendations from the ASHP, IDSA and SIDP Task Force. ??Am J Health-Syst Pharm. 2009; 66:82-98 Blood specimen (specimen) 05/28/2014 9:00 AM EST 05/28/2014 9:23 AM EST Narrative Resulting Agency Comment Spec In Lab Freddy Burciaga MD CHEMISTRY ORDERABLES Performing Organization Address [facility] de Phone Number [facility] * (ABNORMAL) Basic Metabolic Panel (non-fasting) (05/28/2014 9:00 AM EST) Glucose Lvl 121 60 - 199 mg/dL CERNER MILLENNIUM Comment:Diabetes: >=200 mg/d L plus symptoms BUN 4(L) 8 - 18 mg/dL CERNER MILLENNIUM Creatinine 0.29(L) 0.70 - 1.20 mg/dL CERNER MILLENNIUM Comment: Please note that the pediatric reference intervals supplied above were not validated at [facility]. Results from pediatric patients should be interpreted in conjunction to the patient's age, height and muscle mass. Sodium 139 135 - 145 mmol/L CERNER MILLENNIUM Potassium 3.9 3.5 - 5.0 mmol/L CERNER MILLENNIUM Comment: Please note: ??Patients with WBC >100,000 may have falsely elevated Potassium levels. ??For accurate Potassium quantification in these patients send serum separator tube (gold top) for subsequent determinations. ??Contact the Clinical Chemistry Laboratory if there are any questions. Chloride 104 98 - 107 mmol/L CERNER MILLENNIUM CO2 23 22 - 31 mmol/L CERNER MILLENNIUM Anion Gap 12 5 - 15 mmol/L CERNER MILLENNIUM Calcium 8.8 8.5 - 10.5 mg/dL CERNER MILLENNIUM Estimated GFR >60 >=60 CERNER MILLENNIUM Comment: This estimated GFR (eGFR) value was calculated using the MDRD equation which has been validated on patients between the ages of 18 and 70. The MDRD should not be used to assess kidney function in patients < 18 years of age or in patients with extremes of body mass, or in patients with acute kidney failure. This value should be multiplied by 1.2 for patients. For further information please copy and paste the following links into your internet browser. http://[email or web address] [email or web address] Blood specimen (specimen) 05/28/2014 9:00 AM EST 05/28/2014 9:23 AM EST Narrative Resulting Agency Comment Spec In Lab S Alek Burciaga MD CHEMISTRY ORDERABLES CERALIN TOMASENNIUM * Differential, Automated (05/27/2014 5:30 AM EST) Neutrophils % 68.3 % CERNER MILLENNIUM Neutr Abs (ANC) 4.66 1.50 - 6.30 x10(3)/mcL CERNER MILLENNIUM Lymphocytes % 23.6 % CERNER MILLENNIUM Lymphocytes Abs 1.6 1.0 - 3.6 x10(3)/mcL CERNER MILLENNIUM Monocytes % 5.7 % CERNER MILLENNIUM Monocyte Abs 0.4 0.2 - 1.0 x10(3)/mcL CERNER MILLENNIUM Eosinophils % 2.0 % CERNER MILLENNIUM Eosinophils Abs 0.1 0.0 - 0.5 x10(3)/mcL CERNER MILLENNIUM Basophils % 0.3 % CERNER MILLENNIUM Basophils Abs 0.0 0.0 - 0.2 x10(3)/mcL CERNER MILLENNIUM Immature Gran % 0.10 % CERN ER MILLENNIUM Comment: Immature granulocytes(IG's)percentage and absolute count will include metamyelocytes, myelocytes, and promyelocytes. Blood smears from CBCs yielding IG's will be scanned manually for concordance. If this scan disagrees with the automated IG or if promyelocytes are noted, a manual differential will be performed. Debora Gran Abs 0.01 0.00 - 0.05 x10(3)/mcL CERNER MILLENNIUM Blood specimen (specimen) 05/27/2014 5:30 AM EST 05/27/2014 5:39 AM EST Narrative Resulting Agency Comment Spec In Lab S Alek Burciaga MD HEMATOLOGY ORDERABLE S CERNER MILLENNIUM * (ABNORMAL) Hemogram (05/27/2014 5:30 AM EST) WBC 6.8 4.0 - 10.0 x10(3)/mcL CERNER MILLENNIUM RBC 3.59(L) 3.93 - 5.22 x10(6)/mcL CERNER MILLENNIUM Hemoglobin 10.5(L) 11.2 - 15.7 gm/dL CERNER MILLENNIUM Hematocrit 31.9(L) 34.0 - 45.0 % CERNER MILLENNIUM MCV 88.9 79.0 - 94.0 fL CERNER MILLENNIUM MCH 29.2 26.6 - 32.2 pg CERNER MILLENNIUM MCHC 32.9 32.0 - 36.5 gm/dL CERNER MILLENNIUM Platelets 321 145 - 370 x10(3)/mcL CERNER MILLENNIUM RDWSD 46.9(H) 35.0 - 46.0 fL CERNER MILLENNIUM RDWCV 14.3 10.9 - 14.4 % CERNER MILLENNIUM MPV 10.5 9.0 - 12.0 fL CERNER MILLENNIUM Blood specimen (specimen) 05/27/2014 5:30 AM EST 05/27/2014 5:39 AM EST Narrative Resulting Agency Comment Spec In Lab S Alek Burciaga MD HEMATOLOGY ORDERABLE S CERNER MILLENNIUM * (ABNORMAL) Basic Metabolic Panel (non-fasting) (05/27/2014 5:30 AM EST) Glucose Lvl 81 60 - 199 mg/dL CERNER MILLENNIUM Comment:Diabetes: >=200 mg/d L plus symptoms BUN 4(L) 8 - 18 mg/dL CERNER MILLENNIUM Creatinine 0.21(L) 0.70 - 1.20 mg/dL CERNER MILLENNIUM Comment: Please note that the pediatric reference intervals supplied above were not validated at [facility]. Results from pediatric patients should be interpreted in conjunction to the patient's age, height and muscle mass. Sodium 137 135 - 145 mmol/L CERNER MILLENNIUM Potassium 3.9 3.5 - 5.0 mmol/L CERNER MILLENNIUM Comment: Please note: ??Patients with WBC >100,000 may have falsely elevated Potassium levels. ??For accurate Potassium quantification in these patients send serum separator tube (gold top) for subsequent determinations. ??Contact the Clinical Chemistry Laboratory if there are any questions. Chloride 104 98 - 107 mmol/L CERNER MILLENNIUM CO2 22 22 - 31 mmol/L CERNER MILLENNIUM Anion Gap 11 5 - 15 mmol/L CERNER MILLENNIUM Calcium 8.0(L) 8.5 - 10.5 mg/dL CERNER MILLENNIUM Estimated GFR >60 >=60 CERNER MILLENNIUM Comment: This estimated GFR (eGFR) value was calculated using the MDRD equation which has been validated on patients between the ages of 18 and 70. The MDRD should not be used to assess kidney function in patients < 18 years of age or in patients with extremes of body mass, or in patients with acute kidney failure. This value should be multiplied by 1.2 for patients. For further information please copy and paste the following links into your internet browser. [email or web address] Blood specimen (specimen) 05/27/2014 5:30 AM EST 05/27/2014 5:39 AM EST Narrative Resulting Agency Comment Spec In Lab Freddy Burciaga MD CHEMISTRY ORDERABLES LINDA BASHIR * Anaerobic Culture (05/26/2014 5:30 PM EST) Anaerobic Culture ? Patient Name: TANA SHELTON ? Ordered By: Freddy BURCIAGA ? MR#: [id number] ?LOC: ??PA ? /Sex: ??1995 (18 years), ? Female ? PROCEDURE: Anaerobic Culture ?SOURCE: Back ? COLLECTED: 05/26/2014 17:30 ?FREE TEXT SOURCE: Lumbar ? STARTED: 05/26/2014 17:41 ? FINAL REPORT ? Final Report ? Verified:2014 12:55 ? No anaerobic organisms isolated ? PRELIMINARY REPORT ? Preliminary Report ? Verified:2014 12:08 ? No anaerobic organisms isolated to date ? LINDA BASHIR Structure of back of trunk (body structure) 05/26/2014 5:30 PM EST 05/26/2014 5:41 PM EST Comment:LUMBAR Narrative Resulting Agency Comment Spec In Lab Freddy Burciaga MD MICROBIOLOGY - GENER AL ORDERABLES LINDA BASHIR * Tissue culture (05/26/2014 5:30 PM EST) Tissue Culture ? Patient Name: TANA SHELTON ? Ordered By: Freddy BURCIAGA ? MR#: [id number] ?LOC: ??PA ? /Sex: ??1995 (18 years), ? Female ? PROCEDURE: Tissue Culture ?SOURCE: Back ? COLLECTED: 05/26/2014 17:30 ?FREE TEXT SOURCE: Lumbar ? STARTED: 05/26/2014 17:41 ? STAINS / PREPARATIONS ? Gram Stain Report ? Verified:05/26/19 15 18:39 ? Many White Blood Cells seen ? Rare Gram Positive Cocci seen ? FINAL REPORT ? Final Report ? Verified:05/30/19 15 09:44 ? Few Pseudomonas aeruginosa ? PRELIMINARY REPORT ? Preliminary Report ? Verified:05/28/19 15 11:18 ? Few Pseudomonas aeruginosa ? SUSCEPTIBILITY RESULTS ? Pseudomonas aeruginosa ?PAT Interp ? Aztreonam ?S ? Ceftazidime ?S ? Ciprofloxacin ?S ? Gentamicin ? S ? Levofloxacin ? S ? Meropenem ?S ? Piperacillin/Tazo bactam ?S ? Tobramycin ? S ? Patient: TANA SHELTON ? MR#: [id number] ? S=Susceptible ??I=Intermediate ??R=Resistant ??NA=Not Applicable ? DDS=Dose dependent-suscept ible ??NS=Non-suscepti ble ? LINDA BASHIR Structure of back of trunk (body structure) 05/26/2014 5:30 PM EST 05/26/2014 5:41 PM EST Comment:LUMBAR Narrative Resulting Agency Comment Spec In Lab Freddy Burciaga MD MICROBIOLOGY - GENER AL ORDERABLES LINDA BASHIR * Anaerobic Culture (05/26/2014 5:30 PM EST) Anaerobic Culture ? Patient Name: TANA SHELTON ? Ordered By: Freddy BURCIAGA ? MR#: [id number] ?LOC: ??PA ? /Sex: ??1995 (18 years), ? Female ? PROCEDURE: Anaerobic Culture ?SOURCE: Other ? COLLECTED: 05/26/2014 17:30 ?FREE TEXT SOURCE: Anterior Flank ? STARTED: 05/26/2014 17:41 ? FINAL REPORT ? Final Report ? Verified:2014 12:54 ? No anaerobic organisms isolated ? PRELIMINARY REPORT ? Preliminary Report ? Verified:2014 12:08 ? No anaerobic organisms isolated to date ? LINDA BASHIR Specimen of unknown material (specimen) 05/26/2014 5:30 PM EST 05/26/2014 5:41 PM EST Comment:ANTERIOR FLANK Narrative Resulting Agency Comment Spec In Lab Freddy Burciaga MD MICROBIOLOGY - GENER AL ORDERABLES LINDA BASHIR * Tissue culture (05/26/2014 5:30 PM EST) Tissue Culture ? Patient Name: TANA SHELTON ? Ordered By: Freddy BURCIAGA ? MR#: [id number] ?LOC: ??PA ? /Sex: ??1995 (18 years), ? Female ? PROCEDURE: Tissue Culture ?SOURCE: Other ? COLLECTED: 05/26/2014 17:30 ?FREE TEXT SOURCE: Anterior Flank ? STARTED: 05/26/2014 17:41 ? STAINS / PREPARATIONS ? Gram Stain Report ? Verified:05/26/19 15 18:33 ? Few White Blood Cells seen ? No microorganisms seen. ? FINAL REPORT ? Final Report ? Verified:06/01/19 15 12:03 ? Coagulase negative Staphylococcus species isolated from broth culture. ? No growth on original plates. ? PRELIMINARY REPORT ? Preliminary Report ? Verified:05/30/19 15 11:35 ? Coagulase negative Staphylococcus species isolated from broth culture. ? Susceptibility testing in progress ? No growth on original plates. ? Patient: TANA SHELTON ? MR#: [id number] ? SUSCEPTIBILITY RESULTS ? Coagulase negative Staphylococcus species ? PAT Interp ? Ampicillin ?R ? Cefazolin ? S ? Ceftriaxone ? S ? Ciprofloxacin ? S ? Clindamycin ? S ? Erythromycin ?R ? Gentamicin(1) ? S ? Levofloxacin ?S ? Oxacillin ? S ? Penicillin(2) ? R ? Trimethoprim/Sulf a ?S ? Tetracycline ?S ? Vancomycin ?S ? S=Susceptible ??I=Intermediate ??R=Resistant ??NA=Not Applicable ? DDS=Dose dependent-suscept ible ??NS=Non-suscepti ble ? FOOTNOTES ? (1) ? Gentamicin is not appropriate for Sabine-therapy. ? (2) ? Penicillin resistant, Nafcillin susceptible Staphylococci are resistant to ? B-lactamase labile ? Penicillins including Ampicillin and Piperacillin, but susceptible to B- ? lactamase shelbie Penicillins ? (Nafcillin), B-lactamase inhibitor combinations, first and second ? generation Cephalosporins including ? Cefazolin, and to Cefepime and Meropenem. ? [facility] Specimen of unknown material (specimen) 05/26/2014 5:30 PM EST 05/26/2014 5:41 PM EST Comment:ANTERIOR FLANK Narrative Resulting Agency Comment Spec In Lab Freddy Burciaga MD MICROBIOLOGY - GENER AL ORDERABLES LINDA BASHIR * Anaerobic Culture (05/26/2014 5:30 PM EST) Anaerobic Culture ? Patient Name: TANA SHELTON ? Ordered By: Freddy BURCIAGA ? MR#: [id number] ?LOC: ??PA ? /Sex: ??1995 (18 years), ? Female ? PROCEDURE: Anaerobic Culture ?SOURCE: Other ? COLLECTED: 05/26/2014 17:30 ?FREE TEXT SOURCE: Posterior flank ? STARTED: 05/26/2014 17:41 ? FINAL REPORT ? Final Report ? Verified:2014 12:54 ? No anaerobic organisms isolated ? PRELIMINARY REPORT ? Preliminary Report ? Verified:2014 12:08 ? No anaerobic organisms isolated to date ? LINDA BASHIR Specimen of unknown material (specimen) 05/26/2014 5:30 PM EST 05/26/2014 5:41 PM EST Comment:POSTERIOR FLANK Narrative Resulting Agency Comment Spec In Lab Freddy Burciaga MD MICROBIOLOGY - GENER AL ORDERABLES LINDA BASHIR * Tissue culture (05/26/2014 5:30 PM EST) Tissue Culture ? Patient Name: TANA SHELTON ? Ordered By: Freddy BURCIAGA ? MR#: [id number] ?LOC: ??PA ? /Sex: ??1995 (18 years), ? Female ? PROCEDURE: Tissue Culture ?SOURCE: Other ? COLLECTED: 05/26/2014 17:30 ?FREE TEXT SOURCE: Posterior flank ? STARTED: 05/26/2014 17:41 ? STAINS / PREPARATIONS ? Gram Stain Report ? Verified:05/26/19 15 18:27 ? Few White Blood Cells seen ? No microorganisms seen. ? FINAL REPORT ? Final Report ? Verified:05/30/19 15 09:40 ? No growth ? PRELIMINARY REPORT ? Preliminary Report ? Verified:05/27/19 15 07:58 ? No growth to date. ? CERNER MILLENNIUM Specimen of unknown material (specimen) 05/26/2014 5:30 PM EST 05/26/2014 5:41 PM EST Comment:POSTERIOR FLANK Narrative Resulting Agency Comment Spec In Lab S Alek Burciaga MD MICROBIOLOGY - GENER AL ORDERABLES LINDA KEMPIUM * Antibody screen (05/26/2014 12:40 PM EST) Ab Screen Interp Negative LINDA KEMPIUM Expires at [id number] on: [id number] LINDA KEMPIUM Blood specimen (specimen) 05/26/2014 12:40 PM EST 05/26/2014 12:59 PM EST Narrative Resulting Agency Comment Spec In Lab S Alek Burciaga MD BLOOD BANK LAB ORDER MYRANDA Performing Organization Address [facility] [[email or web address]] Co de Phone Number LINDA BASHIR * ABO/Rh Typing (05/26/2014 12:40 PM EST) ABORH Type O Pos LINDA KEMPIUM Blood specimen (specimen) 05/26/2014 12:40 PM EST 05/26/2014 12:59 PM EST Narrative Resulting Agency Comment Spec In Lab S Alek Burciaga MD BLOOD BANK LAB ORDER MYRANDA Performing Organization Address [facility] [[email or web address]] Co de Phone Number LINDA BASHIR * CT abdomen & pelvis WO contrast (05/26/2014 12:04 PM EST) Anatomical Region Laterality Modality Abdomen, Pelvis Computed Tomogra phy 05/26/2014 12:0 4 PM EST Impressions 05/26/2014 1:07 PM EST IMPRESSION: 1. ??3.7 x 0.9 cm posterior subcutaneous air pocket with surrounding inflammatory changes overlying mid lumbar spinous processes without surrounding fluid. 2. ??No retained subcutaneous nor intra-abdominal foreign body fragment. Residual right anterior abdominal wall subcutaneous fluid collection measuring 6.2 x 1.1 x 2.4 cm with scant peripheral calcification may represent old hematoma/seroma at site of prior fragment retrieval. Narrative 05/26/2014 1:07 PM EST EXAMINATION: CT Abdomen / Pelvis Without Contrast CLINICAL HISTORY: abscess, r/o retained catheter fragment TECHNIQUE: Helical CT of the abdomen and pelvis was performed without the use of intravenous contrast COMPARISON: Intraoperative radiographs May 20, 2014 FINDINGS: Review of osseous structures show significant long-standing rotoscoliosis with extensive beam hardening artifact due to spine fixation rods and screws as well as sacral and right hemipelvic fixation hardware. Left and right femoral heads have been resected and there is extensive dystrophic bone at those joint sites. Imaged portions of lung bases show no airspace consolidation or pleural effusion. No retained subcutaneous nor intra-abdominal foreign body fragment. Residual right anterior abdominal wall subcutaneous fluid collection measuring 6.2 x 1.1 x 2.4 cm with scant peripheral calcification may represent old hematoma/seroma at site of prior fragment retrieval. Contour of unenhanced visualized intra-abdominal organs are within normal limits though these are severely distorted by long-standing bony changes described above. No intra-abdominal or pelvic free air. 3.7 x 0.9 cm posterior subcutaneous air pocket with surrounding inflammatory changes overlying mid lumbar spinous processes without surrounding fluid. Procedure Note Nathalie Whitaker MD - 05/26/2014 EXAMINATION: CT Abdomen / Pelvis Without Contrast CLINICAL HISTORY: abscess, r/o retained catheter fragment TECHNIQUE: Helical CT of the abdomen and pelvis was performed without theuse of intravenous contrast COMPARISON: Intraoperative radiographs May 20, 2014 FINDINGS: Review of osseous structures show significant long-standing rotoscoliosiswith extensive beam hardening artifact due to spine fixation rods and screws aswell as sacral and right hemipelvic fixation hardware. Left and right femoralheads have been resected and there is extensive dystrophic bone at those jointsites. Imaged portions of lung bases show no airspace consolidation or pleural effusion. No retained subcutaneous nor intra-abdominal foreign body fragment.Residual right anterior abdominal wall subcutaneous fluid collection measuring 6.2x 1.1 x 2.4 cm with scant peripheral calcification may represent oldhematoma/seroma at site of prior fragment retrieval. Contour of unenhanced visualized intra-abdominal organs are within normallimits though these are severely distorted by long-standing bony changesdescribed above. No intra-abdominal or pelvic free air. 3.7 x 0.9 cm posterior subcutaneous air pocket with surroundinginflammatory changes overlying mid lumbar spinous processes without surroundingfluid. IMPRESSION IMPRESSION: 1. 3.7 x 0.9 cm posterior subcutaneous air pocket with surroundinginflammatory changes overlying mid lumbar spinous processes without surroundingfluid. 2. No retained subcutaneous nor intra-abdominal foreign body fragment.Residual right anterior abdominal wall subcutaneous fluid collection measuring 6.2x 1.1 x 2.4 cm with scant peripheral calcification may represent oldhematoma/seroma at site of prior fragment retrieval. S Alek Burciaga MD IMG CT ORDERABLES * CT lumbar spine reconstruction (05/26/2014 12:04 PM EST) Anatomical Region Laterality Modality L-spine Computed Tomogra phy 05/26/2014 12:0 4 PM EST Impressions 05/26/2014 12:37 PM EST IMPRESSION: ?Numerous small radiopaque structures in the posterior paraspinous tissues. Characterization these fragments is difficult secondary to streak artifact but they have an appearance most consistent with small bone fragments. Retained catheter cannot be excluded at these sites or in the areas of greatest artifact. Narrative 05/26/2014 12:37 PM EST EXAMINATION: CT Lumbar Spine Reconstructions CLINICAL HISTORY: abscess r/o retained catheter fragment prior to surgery; please include lower thoracic region TECHNIQUE: Helical imaging through this lumbar spine was obtained without intravenous contrast. COMPARISON: MRI of thoracic spine of 05/25/2014. FINDINGS: There is severe rotatory dextroconvex scoliosis of the lumbar spine. Rods are present and there are pedicle screws are present at L1, L2, L3, most and L4; streak artifact from the metallic hardware substantially obscures osseous and nonosseous structures of the spine. The metallic hardware appears intact with the exception of the dislocated screw in the right iliac bone, unchanged from the radiograph of 12/16/2011. There are small radiopaque structures in the posterior paraspinous tissues separate from the spinous processes; they have an appearance most consistent with small bone fragments. No metallic object is seen in the region of the gas and fluid collection in the posterior paraspinous tissues. No acute osseous fracture is evident. Procedure Note Bobo Keane MD - 05/26/2014 EXAMINATION: CT Lumbar Spine Reconstructions CLINICAL HISTORY: abscess r/o retained catheter fragment prior tosurgery; please include lower thoracic region TECHNIQUE: Helical imaging through this lumbar spine was obtainedwithout intravenous contrast. COMPARISON: MRI of thoracic spine of 05/25/2014. FINDINGS: There is severe rotatory dextroconvex scoliosis of the lumbar spine. Rodsare present and there are pedicle screws are present at L1, L2, L3, most andL4; streak artifact from the metallic hardware substantially obscures osseousand nonosseous structures of the spine. The metallic hardware appears intactwith the exception of the dislocated screw in the right iliac bone, unchangedfrom the radiograph of 12/16/2011. There are small radiopaque structures inthe posterior paraspinous tissues separate from the spinous processes; theyhave an appearance most consistent with small bone fragments. No metallic objectis seen in the region of the gas and fluid collection in the posteriorparaspinous tissues. No acute osseous fracture is evident. IMPRESSION IMPRESSION: Numerous small radiopaque structures in the posterior paraspinoustissues. Characterization these fragments is difficult secondary to streak artifactbut they have an appearance most consistent with small bone fragments.Retained catheter cannot be excluded at these sites or in the areas of greatestartifact. S Alek Burciaga MD [facility] CT ORDERABLES * Differential, Automated (05/26/2014 4:15 AM EST) Neutrophils % 63.7 % CERNER MILLENNIUM Neutr Abs (ANC) 4.73 1.50 - 6.30 x10(3)/mcL CERNER MILLENNIUM Lymphocytes % 26.5 % CERNER MILLENNIUM Lymphocytes Abs 2.0 1.0 - 3.6 x10(3)/mcL CERNER MILLENNIUM Monocytes % 6.2 % CERNER MILLENNIUM Monocyte Abs 0.5 0.2 - 1.0 x10(3)/mcL CERNER MILLENNIUM Eosinophils % 3.0 % CERNER MILLENNIUM Eosinophils Abs 0.2 0.0 - 0.5 x10(3)/mcL CERNER MILLENNIUM Basophils % 0.3 % CERNER MILLENNIUM Basophils Abs 0.0 0.0 - 0.2 x10(3)/mcL CERNER MILLENNIUM Immature Gran % 0.30 % CERN ER MILLENNIUM Comment: Immature granulocytes(IG's)percentage and absolute count will include metamyelocytes, myelocytes, and promyelocytes. Blood smears from CBCs yielding IG's will be scanned manually for concordance. If this scan disagrees with the automated IG or if promyelocytes are noted, a manual differential will be performed. Debora Gran Abs 0.02 0.00 - 0.05 x10(3)/mcL CERNER MILLENNIUM Blood specimen (specimen) 05/26/2014 4:15 AM EST 05/26/2014 4:35 AM EST Narrative Resulting Agency Comment Spec In Lab S Alek Burciaga MD HEMATOLOGY ORDERABLE S CERALIN MILLENNIUM * (ABNORMAL) Hemogram (05/26/2014 4:15 AM EST) WBC 7.4 4.0 - 10.0 x10(3)/mcL CERNER MILLENNIUM RBC 3.72(L) 3.93 - 5.22 x10(6)/mcL CERNER MILLENNIUM Hemoglobin 10.8(L) 11.2 - 15.7 gm/dL CERNER MILLENNIUM Hematocrit 33.0(L) 34.0 - 45.0 % CERNER MILLENNIUM MCV 88.7 79.0 - 94.0 fL CERNER MILLENNIUM MCH 29.0 26.6 - 32.2 pg CERNER MILLENNIUM MCHC 32.7 32.0 - 36.5 gm/dL CERNER MILLENNIUM Platelets 378(H) 145 - 370 x10(3)/mcL CERNER MILLENNIUM RDWSD 47.2(H) 35.0 - 46.0 fL CERNER MILLENNIUM RDWCV 14.5(H) 10.9 - 14.4 % CERNER MILLENNIUM MPV 10.7 9.0 - 12.0 fL CERNER MILLENNIUM Blood specimen (specimen) 05/26/2014 4:15 AM EST 05/26/2014 4:35 AM EST Narrative Resulting Agency Comment Spec In Lab S Alek Burciaga MD HEMATOLOGY ORDERABLE S CERALIN KEMPIUM * (ABNORMAL) Basic Metabolic Panel (non-fasting) (05/26/2014 4:15 AM EST) Glucose Lvl 88 60 - 199 mg/dL CERNER MILLENNIUM Comment:Diabetes: >=200 mg/d L plus symptoms BUN 6(L) 8 - 18 mg/dL CERNER MILLENNIUM Creatinine 0.28(L) 0.70 - 1.20 mg/dL CERNER MILLENNIUM Comment: Please note that the pediatric reference intervals supplied above were not validated at [facility]. Results from pediatric patients should be interpreted in conjunction to the patient's age, height and muscle mass. Sodium 138 135 - 145 mmol/L CERNER MILLENNIUM Potassium 3.8 3.5 - 5.0 mmol/L CERNER MILLENNIUM Comment: Please note: ??Patients with WBC >100,000 may have falsely elevated Potassium levels. ??For accurate Potassium quantification in these patients send serum separator tube (gold top) for subsequent determinations. ??Contact the Clinical Chemistry Laboratory if there are any questions. Chloride 104 98 - 107 mmol/L CERNER MILLENNIUM CO2 23 22 - 31 mmol/L CERNER MILLENNIUM Anion Gap 11 5 - 15 mmol/L CERNER MILLENNIUM Calcium 8.5 8.5 - 10.5 mg/dL CERNER MILLENNIUM Estimated GFR >60 >=60 CERNER MILLENNIUM Comment: This estimated GFR (eGFR) value was calculated using the MDRD equation which has been validated on patients between the ages of 18 and 70. The MDRD should not be used to assess kidney function in patients < 18 years of age or in patients with extremes of body mass, or in patients with acute kidney failure. This value should be multiplied by 1.2 for patients. For further information please copy and paste the following links into your internet browser. [email or web address] Blood specimen (specimen) 05/26/2014 4:15 AM EST 05/26/2014 4:35 AM EST Narrative Resulting Agency Comment Spec In Lab S Alek Burciaga MD CHEMISTRY ORDERABLES [facility] * Place PICC Line: Contact Vascular Access Page [phone] (05/25/2014 4:01 PM EST) Narrative Iron Aden RN - 05/25/2014 4:01 PM EST Iron Aden, EUNICE ? 05/25/2014 ??4:01 PM PICC/Midline Insertion Procedure Note Indications: Anti-infective This [...] to the planned procedure. Hand Hygiene: The recovery room rn did perform hand hygiene prior to line insertion. Catheter type: PICC Lot number: [id number] Procedure Technique: Skin was prepped with chlorhexidine. Skin preparation agent was completely dry at the time of first skin puncture. The following barrier precaution methods were used:large sterile drape, maske/eye shield, large sterile gown, sterile gloves and cap. 3 ml of 1% Lidocaine was used for skin wheal. Ultrasound was used for guidance. ??Radiographic contrast agent was not injected for vein identification. Procedure Details: Order received for catheter placement. A 4 Fr. single lumen Bard Power catheter was placed into the right basilic vein over a 0.018 inch guidewire using modified seldinger technique and fluoroscopy. Arm circumference was 24 cm at 2 cm above the insertion site. Final catheter length (with trimming): 30 cm Internal: 29 cm External: 1 cm Tip in SVC per DR DORSEY. The line was not placed over a guidewire. Post Procedure: Diagnosis: FEBRILE ILLNESS Blood return noted on aspiration of line after placement confirmed. Sterile dressing applied: Biopatch and IV 3000. Findings: The patient did tolerate the procedure well. No Complications. Procedure Comments: NONE Iron Aden RN 05/25/2014 S Alek Burciaga MD PROCEDURE/MINOR SURG ICAL ORDERABLES * XR VAS venous access (PICC placement) (05/25/2014 3:46 PM EST) Anatomical Region Laterality Modality N/A Radiographic Becca ging 05/25/2014 3:46 PM EST Narrative 05/25/2014 3:56 PM EST EXAMINATION: PLACEMENT PICC LINE (IV TEAM) Over 5 yrs/XCARM CLINICAL HISTORY: DX: FEBRILE ILLNESS REASON FOR PICC: ABX ??SINGLE LUMEN NO RESTRICTIONS TECHNIQUE: C-arm placement of PICC. Limited view of the line tip only. COMPARISON: None FINDINGS: Intraprocedural frontal radiograph of the mediastinum demonstrates a Left PICC, with the catheter tip projected at the mid IVC at the level of the haseeb. ?? Procedure Note Barron Dorsey MD - 05/25/2014 EXAMINATION: PLACEMENT PICC LINE (IV TEAM) Over 5 yrs/XCARM CLINICAL HISTORY: DX: FEBRILE ILLNESS REASON FOR PICC: ABX SINGLE LUMENNO RESTRICTIONS TECHNIQUE: C-arm placement of PICC. Limited view of the line tip only. COMPARISON: None FINDINGS: Intraprocedural frontal radiograph of the mediastinumdemonstrates a Left PICC, with the catheter tip projected at the mid IVC at the level ofthe haseeb. S Alek Burciaga MD IMG FLUORO ORDERABLE S * MRI cervical spine WO contrast (05/25/2014 1:26 PM EST) Anatomical Region Laterality Modality C-spine Magnetic Resonan ce 05/25/2014 1:26 PM EST Impressions 05/25/2014 4:10 PM EST IMPRESSION: 1. ?? Limited study due to metallic artifact and patient motion. 2. ??Study terminated prior to lumbar spine due to patient motion 3. ?? Within these limits no evidence of discitis osteomyelitis in the cervical or thoracic spine. 4. ??. Very limited evaluation of the posterior elements and spinal canal at C7 and thoracic spine. This report was reviewed by Andrade Rebolledo MD at 05/25/2014 4:05 PM Film and interpretation reviewed by the attending Narrative 05/25/2014 4:10 PM EST EXAMINATION: MR Cspine and thoracic WO Johnny CLINICAL HISTORY: wound infection s/p harware removel. ? intrathecal inf, focal. COMPARISON: Scoliosis radiographs from 12/16/2011 FINDINGS: Blow Molding Machine Operator views demonstrate severe rightward scoliotic deformity centered in the thoracolumbar spine. There is scoliosis correction hardware spanning the thoracolumbar spine. 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 No cord signal abnormalities in the upper cervical spine, lower cervical spine obscured by metallic artifact. Additionally, metallic artifact is obscuring the axial images. No aggressive appearing marrow lesions No cord signal abnormalities. No gross collections in the cervical spine. Blow Molding Machine Operator coronal image 8 of series 8 demonstrates extensive supratentorial parenchymal loss in the left hemisphere not completely characterized on this exam. Thoracic spine: Metallic artifact obscures much of the cord and posterior elements. No aggressive appearing marrow lesions are seen in the visualized thoracic spine. Visualized Disc spaces are normal. Procedure Note Andrade Roth MD - 05/25/2014 EXAMINATION: MR Cspine and thoracic WO Johnny CLINICAL HISTORY: wound infection s/p harware removel. ? intrathecal inf,focal. COMPARISON: Scoliosis radiographs from 12/16/2011 FINDINGS: Blow Molding Machine Operator views demonstrate severe rightward scoliotic deformity centered inthe thoracolumbar spine. There is scoliosis correction hardware spanning the thoracolumbar spine. 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 Thereis a synovial perforation of the atlantoaxial joint. No cord signalabnormalities in the upper cervical spine, lower cervical spine obscured by metallicartifact. Additionally, metallic artifact is obscuring the axial images. Noaggressive appearing marrow lesions No cord signal abnormalities. No grosscollections in the cervical spine. Blow Molding Machine Operator coronal image 8 of series 8 demonstrates extensive supratentorial parenchymal loss in the left hemisphere not completely characterized onthis exam. Thoracic spine: Metallic artifact obscures much of the cord andposterior elements. No aggressive appearing marrow lesions are seen in thevisualized thoracic spine. Visualized Disc spaces are normal. IMPRESSION IMPRESSION: 1. Limited study due to metallic artifact and patient motion. 2. Study terminated prior to lumbar spine due to patient motion 3. Within these limits no evidence of discitis osteomyelitis in thecervical or thoracic spine. 4. . Very limited evaluation of the posterior elements and spinal canalat C7 and thoracic spine. This report was reviewed by Andrade Rebolledo MD at 05/25/2014 4:05 PM Film and interpretation reviewed by the attending Freddy Burciaga MD [facility] MRI ORDERABLES * MRI thoracic spine without contrast (05/25/2014 1:26 PM EST) Anatomical Region Laterality Modality T-spine Magnetic Resonan ce 05/25/2014 1:26 PM EST Narrative 05/25/2014 4:10 PM EST See accession #[id number] for dictation of this study. This report was reviewed by Andrade Rebolledo MD at 05/25/2014 4:05 PM Film and interpretation reviewed by the attending Procedure Note Andrade Roth MD - 05/25/2014 See accession #[id number] for dictation of this study. This report was reviewed by Andrade Rebolledo MD at 05/25/2014 4:05 PM Film and interpretation reviewed by the attending Alek Sinha APRN [facility] MRI ORDERABLES * Differential, Automated (05/25/2014 5:00 AM EST) Neutrophils % 58.9 % CERNER MILLENNIUM Neutr Abs (ANC) 4.19 1.50 - 6.30 x10(3)/mcL CERNER MILLENNIUM Lymphocytes % 31.8 % CERNER MILLENNIUM Lymphocytes Abs 2.3 1.0 - 3.6 x10(3)/mcL CERNER MILLENNIUM Monocytes % 6.0 % CERNER MILLENNIUM Monocyte Abs 0.4 0.2 - 1.0 x10(3)/mcL CERNER MILLENNIUM Eosinophils % 2.7 % CERNER MILLENNIUM Eosinophils Abs 0.2 0.0 - 0.5 x10(3)/mcL CERNER MILLENNIUM Basophils % 0.3 % CERNER MILLENNIUM Basophils Abs 0.0 0.0 - 0.2 x10(3)/mcL CERNER MILLENNIUM Immature Gran % 0.30 % CERN ER MILLENNIUM Comment: Immature granulocytes(IG's)percentage and absolute count will include metamyelocytes, myelocytes, and promyelocytes. Blood smears from CBCs yielding IG's will be scanned manually for concordance. If this scan disagrees with the automated IG or if promyelocytes are noted, a manual differential will be performed. Debora Gran Abs 0.02 0.00 - 0.05 x10(3)/mcL CERNER MILLENNIUM Blood specimen (specimen) 05/25/2014 5:00 AM EST 05/25/2014 5:19 AM EST Narrative Resulting Agency Comment Spec In Lab S Alek Burciaga MD HEMATOLOGY ORDERABLE S Performing Organization Address [facility] [[email or web address]] Co de Phone Number CERALIN MILLENNIUM * (ABNORMAL) Hemogram (05/25/2014 5:00 AM EST) WBC 7.1 4.0 - 10.0 x10(3)/mcL CERNER MILLENNIUM RBC 3.95 3.93 - 5.22 x10(6)/mcL CERNER MILLENNIUM Hemoglobin 11.3 11.2 - 15.7 gm/dL CERNER MILLENNIUM Hematocrit 34.8 34.0 - 45.0 % CERNER MILLENNIUM MCV 88.1 79.0 - 94.0 fL CERNER MILLENNIUM MCH 28.6 26.6 - 32.2 pg CERNER MILLENNIUM MCHC 32.5 32.0 - 36.5 gm/dL CERNER MILLENNIUM Platelets 358 145 - 370 x10(3)/mcL CERNER MILLENNIUM RDWSD 47.5(H) 35.0 - 46.0 fL CERNER MILLENNIUM RDWCV 14.7(H) 10.9 - 14.4 % CERNER MILLENNIUM MPV 10.5 9.0 - 12.0 fL CERNER MILLENNIUM Blood specimen (specimen) 05/25/2014 5:00 AM EST 05/25/2014 5:19 AM EST Narrative Resulting Agency Comment Spec In Lab S Alek Burciaga MD HEMATOLOGY ORDERABLE S Performing Organization Address [place]/[facility] [[email or web address]] Co de Phone Number CERALIN KEMPIUM * (ABNORMAL) Basic Metabolic Panel (non-fasting) (05/25/2014 5:00 AM EST) Glucose Lvl 87 60 - 199 mg/dL CERNER MILLENNIUM Comment:Diabetes: >=200 mg/d L plus symptoms BUN 6(L) 8 - 18 mg/dL CERNER MILLENNIUM Creatinine 0.27(L) 0.70 - 1.20 mg/dL CERNER MILLENNIUM Comment: Please note that the pediatric reference intervals supplied above were not validated at [facility]. Results from pediatric patients should be interpreted in conjunction to the patient's age, height and muscle mass. Sodium 140 135 - 145 mmol/L CERNER MILLENNIUM Potassium 4.0 3.5 - 5.0 mmol/L CERNER MILLENNIUM Comment: Please note: ??Patients with WBC >100,000 may have falsely elevated Potassium levels. ??For accurate Potassium quantification in these patients send serum separator tube (gold top) for subsequent determinations. ??Contact the Clinical Chemistry Laboratory if there are any questions. Chloride 105 98 - 107 mmol/L CERNER MILLENNIUM CO2 23 22 - 31 mmol/L CERNER MILLENNIUM Anion Gap 12 5 - 15 mmol/L CERNER MILLENNIUM Calcium 8.4(L) 8.5 - 10.5 mg/dL CERNER MILLENNIUM Estimated GFR >60 >=60 CERNER MILLENNIUM Comment: This estimated GFR (eGFR) value was calculated using the MDRD equation which has been validated on patients between the ages of 18 and 70. The MDRD should not be used to assess kidney function in patients < 18 years of age or in patients with extremes of body mass, or in patients with acute kidney failure. This value should be multiplied by 1.2 for patients. For further information please copy and paste the following links into your internet browser. [email or web address] [email or web address] Blood specimen (specimen) 05/25/2014 5:00 AM EST 05/25/2014 5:19 AM EST Narrative Resulting Agency Comment Spec In Lab S Alek Burciaga MD CHEMISTRY ORDERABLES CERNER MILLENNIUM * Differential, Automated (05/24/2014 12:42 PM EST) Neutrophils % 63.9 % CERNER MILLENNIUM Neutr Abs (ANC) 4.46 1.50 - 6.30 x10(3)/mcL CERNER MILLENNIUM Lymphocytes % 27.6 % CERNER MILLENNIUM Lymphocytes Abs 1.9 1.0 - 3.6 x10(3)/mcL CERNER MILLENNIUM Monocytes % 5.7 % CERNER MILLENNIUM Monocyte Abs 0.4 0.2 - 1.0 x10(3)/mcL CERNER MILLENNIUM Eosinophils % 2.4 % CERNER MILLENNIUM Eosinophils Abs 0.2 0.0 - 0.5 x10(3)/mcL CERNER MILLENNIUM Basophils % 0.3 % CERNER MILLENNIUM Basophils Abs 0.0 0.0 - 0.2 x10(3)/mcL CERNER MILLENNIUM Immature Gran % 0.10 % CERN ER MILLENNIUM Comment: Immature granulocytes(IG's)percentage and absolute count will include metamyelocytes, myelocytes, and promyelocytes. Blood smears from CBCs yielding IG's will be scanned manually for concordance. If this scan disagrees with the automated IG or if promyelocytes are noted, a manual differential will be performed. Debora Gran Abs 0.01 0.00 - 0.05 x10(3)/mcL CERNER MILLENNIUM Blood specimen (specimen) 05/24/2014 12:42 PM EST 05/24/2014 12:48 PM EST Narrative Resulting Agency Comment Spec In Lab S Alek Burciaga MD HEMATOLOGY ORDERABLE S CERNER MILLENNIUM * (ABNORMAL) Hemogram (05/24/2014 12:42 PM EST) WBC 7.0 4.0 - 10.0 x10(3)/mcL CERNER MILLENNIUM RBC 4.47 3.93 - 5.22 x10(6)/mcL CERNER MILLENNIUM Hemoglobin 13.0 11.2 - 15.7 gm/dL CERNER MILLENNIUM Hematocrit 39.6 34.0 - 45.0 % CERNER MILLENNIUM MCV 88.6 79.0 - 94.0 fL CERNER MILLENNIUM MCH 29.1 26.6 - 32.2 pg CERNER MILLENNIUM MCHC 32.8 32.0 - 36.5 gm/dL CERNER MILLENNIUM Platelets 389(H) 145 - 370 x10(3)/mcL CERNER MILLENNIUM RDWSD 47.3(H) 35.0 - 46.0 fL CERNER MILLENNIUM RDWCV 14.5(H) 10.9 - 14.4 % CERNER MILLENNIUM MPV 10.6 9.0 - 12.0 fL CERNER MILLENNIUM Blood specimen (specimen) 05/24/2014 12:42 PM EST 05/24/2014 12:48 PM EST Narrative Resulting Agency Comment Spec In Lab S Alek Burciaga MD HEMATOLOGY ORDERABLE S CERNER MILLENNIUM * (ABNORMAL) Basic Metabolic Panel (non-fasting) (05/24/2014 12:42 PM EST) Glucose Lvl 78 60 - 199 mg/dL CERNER MILLENNIUM Comment:Diabetes: >=200 mg/d L plus symptoms BUN 4(L) 8 - 18 mg/dL CERNER MILLENNIUM Comment:result rechecked-f Creatinine 0.39(L) 0.70 - 1.20 mg/dL CERNER MILLENNIUM Comment: Please note that the pediatric reference intervals supplied above were not validated at [facility]. Results from pediatric patients should be interpreted in conjunction to the patient's age, height and muscle mass. Sodium 142 135 - 145 mmol/L CERNER MILLENNIUM Potassium 4.0 3.5 - 5.0 mmol/L CERNER MILLENNIUM Comment: Please note: ??Patients with WBC >100,000 may have falsely elevated Potassium levels. ??For accurate Potassium quantification in these patients send serum separator tube (gold top) for subsequent determinations. ??Contact the Clinical Chemistry Laboratory if there are any questions. Chloride 103 98 - 107 mmol/L CERNER MILLENNIUM CO2 25 22 - 31 mmol/L CERNER MILLENNIUM Anion Gap 14 5 - 15 mmol/L CERNER MILLENNIUM Calcium 8.9 8.5 - 10.5 mg/dL CERNER MILLENNIUM Estimated GFR >60 >=60 CERNER MILLENNIUM Comment: This estimated GFR (eGFR) value was calculated using the MDRD equation which has been validated on patients between the ages of 18 and 70. The MDRD should not be used to assess kidney function in patients < 18 years of age or in patients with extremes of body mass, or in patients with acute kidney failure. This value should be multiplied by 1.2 for patients. For further information please copy and paste the following links into your internet browser. [email or web address] Blood specimen (specimen) 05/24/2014 12:42 PM EST 05/24/2014 12:42 PM EST Narrative Resulting Agency Comment Spec In Lab Freddy Burciaga MD CHEMISTRY ORDERABLES Performing Organization Address [facility] de Phone Number CERALIN MinteosIUM * Vancomycin, trough (05/24/2014 12:29 PM EST) Vanc Trough 12.4 mg/L CERNER MILLENNIUM Comment: Therapeutic range for complicated infections such as bacteremia, endocarditis, osteomyelitis, meningitis, and hospital-acquired pneumonia caused by S. aureus: 15-20 mg/L Therapeutic range for other indications: 10-15 mg/L Toxic: >25 mg/L Reference: Vancomycin Therapeutic Monitoring: Review and Recommendations from the ASHP, IDSA and SIDP Task Force. ??Am J Health-Syst Pharm. 2009; 66:82-98 Blood specimen (specimen) 05/24/2014 12:29 PM EST 05/24/2014 12:48 PM EST Narrative Resulting Agency Comment Spec In Lab Freddy Burciaga MD CHEMISTRY ORDERABLES Performing Organization Address [facility] de Phone Number CERALIN TOMASYoubooxIUM * (ABNORMAL) Electrolytes panel (05/23/2014 12:30 AM EST) Sodium 141 135 - 145 mmol/L CERNER MILLENNIUM Potassium 3.9 3.5 - 5.0 mmol/L CERNER MILLENNIUM Comment: Please note: ??Patients with WBC >100,000 may have falsely elevated Potassium levels. ??For accurate Potassium quantification in these patients send serum separator tube (gold top) for subsequent determinations. ??Contact the Clinical Chemistry Laboratory if there are any questions. Chloride 107 98 - 107 mmol/L CERNER MILLENNIUM CO2 21(L) 22 - 31 mmol/L CERNER MILLENNIUM Anion Gap 13 5 - 15 mmol/L CERNER MILLENNIUM Blood specimen (specimen) 05/23/2014 12:30 AM EST 05/23/2014 1:32 AM EST Narrative Resulting Agency Comment Spec In Lab S Alek Burciaga MD CHEMISTRY ORDERABLES Performing Organization Address [facility] de Phone Number CERNER MILLENNIUM * (ABNORMAL) Electrolytes panel (05/22/2014 6:20 PM EST) Sodium 141 135 - 145 mmol/L CERNER MILLENNIUM Potassium 4.0 3.5 - 5.0 mmol/L CERNER MILLENNIUM Comment: Please note: ??Patients with WBC >100,000 may have falsely elevated Potassium levels. ??For accurate Potassium quantification in these patients send serum separator tube (gold top) for subsequent determinations. ??Contact the Clinical Chemistry Laboratory if there are any questions. Chloride 103 98 - 107 mmol/L CERNER MILLENNIUM CO2 22 22 - 31 mmol/L CERNER MILLENNIUM Anion Gap 16(H) 5 - 15 mmol/L CERNER MILLENNIUM Blood specimen (specimen) 05/22/2014 6:20 PM EST 05/22/2014 6:27 PM EST Narrative Resulting Agency Comment Spec In Lab Freddy Burciaga MD CHEMISTRY ORDERABLES Performing Organization Address [facility] de Phone Number CERNER MILLENNIUM * (ABNORMAL) Phosphorus (05/22/2014 12:45 PM EST) Phosphorus 2.2(L) 2.5 - 4.5 mg/dL CERNER MILLENNIUM Blood specimen (specimen) Venous Draw / Unknown 05/22/2014 12:45 PM EST 05/22/2014 1:03 PM EST Narrative Resulting Agency Comment Spec In Lab Lucho Smith MD CHEMISTRY ORDERABLES Performing Organization Address [place]/[facility] [[email or web address]] Co de Phone Number CERNER MILLENNIUM * Magnesium (05/22/2014 12:45 PM EST) Magnesium 0.69 0.69 - 1.07 mmol/L [facility] Blood specimen (specimen) Venous Draw / Unknown 05/22/2014 12:45 PM EST 05/22/2014 1:03 PM EST Narrative Resulting Agency Comment Spec In Lab Lucho Smith MD CHEMISTRY ORDERABLES Performing Organization Address [facility] de Phone Number [facility] * Lipase (05/22/2014 12:45 PM EST) Pathologist [facility] Lipase 44 0 - 60 unit/L [facility] Blood specimen (specimen) 05/22/2014 12:45 PM EST 05/22/2014 1:03 PM EST Narrative Resulting Agency Comment Spec In Lab Lucho Smith MD CHEMISTRY ORDERABLES Performing Organization Address [facility] de Phone Number [facility] * Amylase (05/22/2014 12:45 PM EST) Amylase 89 28 - 100 unit/L [facility] Blood specimen (specimen) 05/22/2014 12:45 PM EST 05/22/2014 1:03 PM EST Narrative Resulting Agency Comment Spec In Lab Lucho Smith MD CHEMISTRY ORDERABLES Performing Organization Address [facility] de Phone Number [facility] * (ABNORMAL) Comprehensive metabolic panel (non-fasting) (05/22/2014 12:45 PM EST) Glucose Lvl 81 60 - 199 mg/dL [facility] Comment:Diabetes: >=200 mg/d L plus symptoms BUN 2(L) 8 - 18 mg/dL [facility] Creatinine 0.31(L) 0.70 - 1.20 mg/dL [facility] Comment: Please note that the pediatric reference intervals supplied above were not validated at [facility]. Results from pediatric patients should be interpreted in conjunction to the patient's age, height and muscle mass. Sodium 142 135 - 145 mmol/L CERNER MILLENNIUM Potassium 3.6 3.5 - 5.0 mmol/L [facility]ERNER MILLENNIUM Comment: Please note: ??Patients with WBC >100,000 may have falsely elevated Potassium levels. ??For accurate Potassium quantification in these patients send serum separator tube (gold top) for subsequent determinations. ??Contact the Clinical Chemistry Laboratory if there are any questions. Chloride 104 98 - 107 mmol/L CERNER MILLENNIUM CO2 24 22 - 31 mmol/L CERNER MILLENNIUM Anion Gap 14 5 - 15 mmol/L CERNER MILLENNIUM Calcium 8.6 8.5 - 10.5 mg/dL CERNER MILLENNIUM Comment:result rechecked-mkf Total Protein 7.1 6.4 - 8.3 gm/dL CERNER MILLENNIUM Albumin 3.9 3.2 - 5.2 gm/dL CERNER MILLENNIUM AST 13 0 - 30 unit/L CERNER MILLENNIUM ALT 16 0 - 30 unit/L CERNER MILLENNIUM Alk Phos 65 40 - 104 unit/L CERNER MILLENNIUM Total Bilirubin 0.2 0.2 - 1.3 mg/dL CERNER MILLENNIUM Bili, Direct 0.1 0.0 - 0.3 mg/dL CERNER MILLENNIUM Estimated GFR >60 >=60 CERNER MILLENNIUM Comment: This estimated GFR (eGFR) value was calculated using the MDRD equation which has been validated on patients between the ages of 18 and 70. The MDRD should not be used to assess kidney function in patients < 18 years of age or in patients with extremes of body mass, or in patients with acute kidney failure. This value should be multiplied by 1.2 for patients. For further information please copy and paste the following links into your internet browser. [email or web address] Blood specimen (specimen) 05/22/2014 12:45 PM EST 05/22/2014 1:03 PM EST Narrative Resulting Agency Comment Spec In Lab Lucho Smith MD CHEMISTRY ORDERABLES [facility] * Differential, Automated (05/22/2014 6:10 AM EST) Neutrophils % 58.9 % CERNER MILLENNIUM Neutr Abs (ANC) 4.55 1.50 - 6.30 x10(3)/mcL CERNER MILLENNIUM Lymphocytes % 33.5 % CERNER MILLENNIUM Lymphocytes Abs 2.6 1.0 - 3.6 x10(3)/mcL CERNER MILLENNIUM Monocytes % 6.2 % CERNER MILLENNIUM Monocyte Abs 0.5 0.2 - 1.0 x10(3)/mcL CERNER MILLENNIUM Eosinophils % 0.8 % CERNER MILLENNIUM Eosinophils Abs 0.1 0.0 - 0.5 x10(3)/mcL CERNER MILLENNIUM Basophils % 0.3 % CERNER MILLENNIUM Basophils Abs 0.0 0.0 - 0.2 x10(3)/mcL CERNER MILLENNIUM Immature Gran % 0.30 % CERN ER MILLENNIUM Comment: Immature granulocytes(IG's)percentage and absolute count will include metamyelocytes, myelocytes, and promyelocytes. Blood smears from CBCs yielding IG's will be scanned manually for concordance. If this scan disagrees with the automated IG or if promyelocytes are noted, a manual differential will be performed. Debora Gran Abs 0.02 0.00 - 0.05 x10(3)/mcL CERNER MILLENNIUM Blood specimen (specimen) 05/22/2014 6:10 AM EST 05/22/2014 6:22 AM EST Narrative Resulting Agency Comment Spec In Lab S Alek Burciaga MD HEMATOLOGY ORDERABLE S [facility] * Hemogram (05/22/2014 6:10 AM EST) WBC 7.7 4.0 - 10.0 x10(3)/mcL CERNER MILLENNIUM RBC 4.03 3.93 - 5.22 x10(6)/mcL CERNER MILLENNIUM Hemoglobin 11.6 11.2 - 15.7 gm/dL CERNER MILLENNIUM Hematocrit 35.0 34.0 - 45.0 % CERNER MILLENNIUM MCV 86.8 79.0 - 94.[address] MCH 28.8 26.6 - 32.[address] [facility] MILLENNIUM MCHC 33.1 32.0 - 36.5 gm/dL [facility] MILLEN[facility]UM Platelets 342 145 - 370 x10(3)/mcL CERNER MILLENNIUM RDWSD 45.2 35.0 - 46.[address] [facility] MILLENNIUM RDWCV 14.2 10.9 - 14.4 % [facility] MILLENNIUM MPV 10.7 9.0 - 12.0 fL [facility] MILLENNIUM Blood specimen (specimen) 05/22/2014 6:10 AM EST 05/22/2014 6:22 AM EST Narrative Resulting Agency Comment Spec In Lab S Alek Burciaga MD HEMATOLOGY ORDERABLE S Performing Organization Address City/[facility]/ZIP Co de Phone Number [facility] * Vancomycin, trough (05/22/2014 6:10 AM EST) Vanc Trough 6.1 mg/L [facility] Comment: Therapeutic range for complicated infections such as bacteremia, endocarditis, osteomyelitis, meningitis, and hospital-acquired pneumonia caused by S. aureus: 15-20 mg/L Therapeutic range for other indications: 10-15 mg/L Toxic: >25 mg/L Reference: Vancomycin Therapeutic Monitoring: Review and Recommendations from the ASHP, IDSA and SIDP Task Force. ??Am J Health-Syst Pharm. 2009; 66:82-98 Blood specimen (specimen) 05/22/2014 6:10 AM EST 05/22/2014 6:22 AM EST Narrative Resulting Agency Comment Spec In Lab S Alek Burciaga MD CHEMISTRY ORDERABLES [facility] * (ABNORMAL) Basic Metabolic Panel (non-fasting) (05/22/2014 6:10 AM EST) Glucose Lvl 86 60 - 199 mg/dL [facility] Comment:Diabetes: >=200 mg/d L plus symptoms BUN 3(L) 8 - 18 mg/dL [facility] Creatinine 0.27(L) 0.70 - 1.20 mg/dL CERNER MILLENNIUM Comment: Please note that the pediatric reference intervals supplied above were not validated at [facility]. Results from pediatric patients should be interpreted in conjunction to the patient's age, height and muscle mass. Sodium 141 135 - 145 mmol/L CERNER MILLENNIUM Potassium 2.9(Criti dean) 3.5 - 5.0 mmol/L [facility]ER MILLENNIUM Comment: Called by: whit, Read back by: fox mcintyre, Date/Time:05/22/14 07:02. Please note: ??Patients with WBC >100,000 may have falsely elevated Potassium levels. ??For accurate Potassium quantification in these patients send serum separator tube (gold top) for subsequent determinations. ??Contact the Clinical Chemistry Laboratory if there are any questions. Chloride 104 98 - 107 mmol/L CERNER MILLENNIUM CO2 21(L) 22 - 31 mmol/L CERNER MILLENNIUM Anion Gap 16(H) 5 - 15 mmol/L CERNER MILLENNIUM Calcium 7.8(L) 8.5 - 10.5 mg/dL [facility]ERNER MILLENNIUM Estimated GFR >60 >=60 [facility]ERNER MILLENNIUM Comment: This estimated GFR (eGFR) value was calculated using the MDRD equation which has been validated on patients between the ages of 18 and 70. The MDRD should not be used to assess kidney function in patients < 18 years of age or in patients with extremes of body mass, or in patients with acute kidney failure. This value should be multiplied by 1.2 for patients. For further information please copy and paste the following links into your internet browser. [email or web address] [email or web address] Blood specimen (specimen) 05/22/2014 6:10 AM EST 05/22/2014 6:22 AM EST Narrative Resulting Agency Comment Spec In Lab S Alek Burciaga MD CHEMISTRY ORDERABLES [facility] * (ABNORMAL) Differential, Automated (05/21/2014 4:23 AM EST) Neutrophils % 94.4 % CERNER MILLENNIUM Neutr Abs (ANC) 10.59(H) 1.50 - 6.30 x10(3)/mc L CERNER MILLENNIUM Lymphocytes % 4.5 % CERNER MILLENNIUM Lymphocytes Abs 0.5(L) 1.0 - 3.6 x10(3)/mc L CERNER MILLENNIUM Monocytes % 0.9 % CERNER MILLENNIUM Monocyte Abs 0.1(L) 0.2 - 1.0 x10(3)/mc L CERNER MILLENNIUM Eosinophils % 0.0 % CERNER MILLENNIUM Eosinophils Abs 0.0 0.0 - 0.5 x10(3)/mc L CERNER MILLENNIUM Basophils % 0.1 % CERNER MILLENNIUM Basophils Abs 0.0 0.0 - 0.2 x10(3)/mc L CERNER MILLENNIUM Immature Gran % 0.10 % CERN ER MILLENNIUM Comment: Immature granulocytes(IG's)percentage and absolute count will include metamyelocytes, myelocytes, and promyelocytes. Blood smears from CBCs yielding IG's will be scanned manually for concordance. If this scan disagrees with the automated IG or if promyelocytes are noted, a manual differential will be performed. Debora Gran Abs 0.01 0.00 - 0.05 x10(3)/mc L [facility]ER MILLENNIUM Blood specimen (specimen) 05/21/2014 4:23 AM EST 05/21/2014 4:38 AM EST Narrative Resulting Agency Comment Spec In Lab S Alek Burciaga MD HEMATOLOGY ORDERABLE S [facility] * (ABNORMAL) Hemogram (05/21/2014 4:23 AM EST) WBC 11.2(H) 4.0 - 10.0 x10(3)/mcL CERNER MILLENNIUM RBC 4.36 3.93 - 5.22 x10(6)/mcL CERNER MILLENNIUM Hemoglobin 12.8 11.2 - 15.7 gm/dL [facility]ERNER MILLENNIUM Hematocrit 38.2 34.0 - 45.0 % CERNER MILLENNIUM MCV 87.6 79.0 - 94.0 fL CERNER MILLENNIUM MCH 29.4 26.6 - 32.2 pg CERNER MILLENNIUM MCHC 33.5 32.0 - 36.5 gm/dL CERNER MILLENNIUM Platelets 362 145 - 370 x10(3)/mcL CERNER MILLENNIUM RDWSD 43.8 35.0 - 46.0 fL CERNER MILLENNIUM RDWCV 13.9 10.9 - 14.4 % CERNER MILLENNIUM MPV 10.9 9.0 - 12.0 fL [facility] MILLENNIUM Blood specimen (specimen) 05/21/2014 4:23 AM EST 05/21/2014 4:38 AM EST Narrative Resulting Agency Comment Spec In Lab S Alek Burciaga MD HEMATOLOGY ORDERABLE S [facility] MILL[facility] * (ABNORMAL) Basic Metabolic Panel (non-fasting) (05/21/2014 4:23 AM EST) Glucose Lvl 107 60 - 199 mg/dL CERNER MILLENNIUM Comment:Diabetes: >=200 mg/d L plus symptoms BUN 3(L) 8 - 18 mg/dL CERNER MILLENNIUM Comment:result rechecked- ll u Creatinine 0.30(L) 0.70 - 1.20 mg/dL CERNER MILLENNIUM Comment: Please note that the pediatric reference intervals supplied above were not validated at [facility]. Results from pediatric patients should be interpreted in conjunction to the patient's age, height and muscle mass. Sodium 138 135 - 145 mmol/L CERNER MILLENNIUM Potassium 4.0 3.5 - 5.0 mmol/L CERNER MILLENNIUM Comment: Please note: ??Patients with WBC >100,000 may have falsely elevated Potassium levels. ??For accurate Potassium quantification in these patients send serum separator tube (gold top) for subsequent determinations. ??Contact the Clinical Chemistry Laboratory if there are any questions. Chloride 106 98 - 107 mmol/L CERNER MILLENNIUM CO2 19(L) 22 - 31 mmol/L CERNER MILLENNIUM Anion Gap 13 5 - 15 mmol/L [facility]ERNER MILLENNIUM Calcium 7.3(L) 8.5 - 10.5 mg/dL [facility]ER MILLENNIUM Estimated GFR >60 >=60 CERNER MILLENNIUM Comment: This estimated GFR (eGFR) value was calculated using the MDRD equation which has been validated on patients between the ages of 18 and 70. The MDRD should not be used to assess kidney function in patients < 18 years of age or in patients with extremes of body mass, or in patients with acute kidney failure. This value should be multiplied by 1.2 for patients. For further information please copy and paste the following links into your internet browser. [email or web address] [email or web address] Blood specimen (specimen) 05/21/2014 4:23 AM EST 05/21/2014 4:38 AM EST Narrative Resulting Agency Comment Spec In Lab Freddy Burciaga MD CHEMISTRY ORDERABLES [facility] * Accounting Practice Manager Culture (05/20/2014 10:01 PM EST) Accounting Practice Manager Culture ? Patient Name: TANA SHELTON ? Ordered By: Freddy BURCIAGA ? MR#: [id number] ?LOC: ??PA ? /Sex: ??1995 (18 years), ? Female ? PROCEDURE: Accounting Practice Manager Culture ?SOURCE: Other ? COLLECTED: 05/20/2014 22:01 ? BODY SITE: Other ? STARTED: 05/20/2014 22:22 ?FREE TEXT SOURCE: retained baclafin pump tubing ? FINAL REPORT ? Final Report ? Verified:05/24/2014 10:28 ? Pseudomonas aeruginosa isolated ? Susceptibilities previously reported ? PRELIMINARY REPORT ? Preliminary Report ? Verified:05/23/2014 11:27 ? Pseudomonas aeruginosa isolated ? Susceptibilities previously reported ? [facility] Specimen of unknown material (specimen) TOPOGRAPHY UNKNOWN / Unknown 05/20/2014 10:01 PM EST 05/20/2014 10:21 PM EST Comment:RETAINED BACLAFIN PU MP TUBING Narrative Resulting Agency Comment Spec In Lab Freddy Burciaga MD MICROBIOLOGY - GENER AL ORDERABLES [facility] * Anaerobic Culture (05/20/2014 9:25 PM EST) Anaerobic Culture ? Patient Name: TANA SHELTON ? Ordered By: Freddy BURCIAGA ? MR#: [id number] ?LOC: ??PA ? /Sex: ??1995 (18 years), ? Female ? PROCEDURE: Anaerobic Culture ?SOURCE: Back ? COLLECTED: 05/20/2014 21:25 ?FREE TEXT SOURCE: Lumbar wound Culture #2 ? STARTED: 05/20/2014 22:12 ? FINAL REPORT ? Final Report ? Verified:2014 15:01 ? No anaerobic organisms isolated ? PRELIMINARY REPORT ? Preliminary Report ? Verified:2014 15:03 ? No anaerobic organisms isolated to date ? LINDA TOMASENNIUM Structure of back of trunk (body structure) 05/20/2014 9:25 PM EST 05/20/2014 10:12 PM EST Comment:LUMBAR WOUND CULTURE #2 Narrative Resulting Agency Comment Spec In Lab S Alek Burciaga MD MICROBIOLOGY - GENER AL ORDERABLES [facility] * Tissue culture (05/20/2014 9:25 PM EST) Tissue Culture ? Patient Name: TANA SHELTON ? Ordered By: Freddy BURCIAGA ? MR#: [id number] ?LOC: ??PA ? /Sex: ??1995 (18 years), ? Female ? PROCEDURE: Tissue Culture ?SOURCE: Back ? COLLECTED: 05/20/2014 21:25 ?FREE TEXT SOURCE: Lumbar wound Culture #2 ? STARTED: 05/20/2014 22:12 ? STAINS / PREPARATIONS ? Gram Stain Report ? Verified:05/20/19 15 22:31 ? Few White Blood Cells seen ? No microorganisms seen. ? FINAL REPORT ? Final Report ? Verified:05/24/19 15 10:26 ? Rare Pseudomonas aeruginosa ? PRELIMINARY REPORT ? Preliminary Report ? Verified:05/23/19 15 09:49 ? Rare Pseudomonas aeruginosa ? SUSCEPTIBILITY RESULTS ? Pseudomonas aeruginosa ?PAT Interp ? Aztreonam ?S ? Ceftazidime ?S ? Ciprofloxacin ?S ? Gentamicin ? S ? Levofloxacin ? S ? Meropenem ?S ? Piperacillin/Tazo bactam ?S ? Tobramycin ? S ? Patient: TANA SHELTON S ? MR#: [id number] ? S=Susceptible ??I=Intermediate ??R=Resistant ??NA=Not Applicable ? DDS=Dose dependent-suscept ible ??NS=Non-suscepti ble ? LINDA BASHIR Structure of back of trunk (body structure) 05/20/2014 9:25 PM EST 05/20/2014 10:12 PM EST Comment:LUMBAR WOUND CULTURE #2 Narrative Resulting Agency Comment Spec In Lab Freddy Burciaga MD MICROBIOLOGY - GENER AL ORDERABLES [facility] * Anaerobic Culture (05/20/2014 8:20 PM EST) Anaerobic Culture ? Patient Name: TANA SHELTON ? Ordered By: Freddy BURCIAGA ? MR#: [id number] ?LOC: ??PA ? /Sex: ??1995 (18 years), ? Female ? PROCEDURE: Anaerobic Culture ?SOURCE: Back ? COLLECTED: 05/20/2014 20:20 ?FREE TEXT SOURCE: Lumbar Wound Culture ? STARTED: 05/20/2014 22:13 ? FINAL REPORT ? Final Report ? Verified:2014 15:01 ? No anaerobic organisms isolated ? PRELIMINARY REPORT ? Preliminary Report ? Verified:2014 15:03 ? No anaerobic organisms isolated to date ? LINDA BASHIR Structure of back of trunk (body structure) 05/20/2014 8:20 PM EST 05/20/2014 10:12 PM EST Comment:LUMBAR WOUND CULTURE Narrative Resulting Agency Comment Spec In Lab Freddy Burciaga MD MICROBIOLOGY - GENER AL ORDERABLES [facility] * Tissue culture (05/20/2014 8:20 PM EST) Tissue Culture ? Patient Name: TANA SHELTON ? Ordered By: Freddy BURCIAGA ? MR#: [id number] ?LOC: ??PA ? /Sex: ??1995 (18 years), ? Female ? PROCEDURE: Tissue Culture ?SOURCE: Back ? COLLECTED: 05/20/2014 20:20 ?FREE TEXT SOURCE: Lumbar Wound Culture ? STARTED: 05/20/2014 22:13 ? STAINS / PREPARATIONS ? Gram Stain Report ? Verified:05/20/2014 22:28 ? Few White Blood Cells seen ? No microorganisms seen. ? FINAL REPORT ? Final Report ? Verified:05/24/2014 10:26 ? Rare Pseudomonas species ? Susceptibilities previously reported ? PRELIMINARY REPORT ? Preliminary Report ? Verified:05/23/2014 09:50 ? Rare Pseudomonas species ? Susceptibilities previously reported ? LINDA BASHIR Structure of back of trunk (body structure) 05/20/2014 8:20 PM EST 05/20/2014 10:12 PM EST Comment:LUMBAR WOUND CULTURE Narrative Resulting Agency Comment Spec In Lab S Alek Burciaga MD MICROBIOLOGY - GENER AL ORDERABLES [facility] * Urine culture First Catch Urine (05/20/2014 6:46 PM EST) Urine Culture ? Patient Name: TANA SHELTON ? Ordered By: BELKIS LOUIE ? MR#: [id number] ?LOC: ??PA ? /Sex: ??1995 (18 years), ? Female ? PROCEDURE: Urine Culture ?SOURCE: [facility] ? COLLECTED: 05/20/2014 18:46 ? STARTED: 05/20/2014 19:29 ? FINAL REPORT ? Final Report ? Verified:2014 09:17 ? No growth (Less than 100 cfu/ml). ? PRELIMINARY REPORT ? Preliminary Report ? Verified:2014 15:02 ? No growth to date. ? CERNER MILLENNIUM Urine specimen obtained via straight catheter (specimen) 05/20/2014 6:46 PM EST 05/20/2014 7:29 PM EST Narrative Resulting Agency Comment Spec In Lab Belkis Louie MD MICROBIOLOGY - GENER AL ORDERABLES [facility] * (ABNORMAL) Urinalysis with microscopic (05/20/2014 6:46 PM EST) Glucose UA Negative Negative mg/dL [facility] MILLENNIUM Protein UA Negative Negative mg/dL [facility] MILLENNI[facility] Bilirubin UA Negative Negative mg/dL [facility] Comment: Clinical correlation required for positive Urine Bilirubin results as false positive may occur with some drugs and drug related products. If a false positive is suspected a serum total bilirubin should be considered if clinically indicated. Urobilinogen UA >=4.0(A) Normal mg/dL C ERNER MILLENNIUM pH UA 7.0 5.0 - 8.0 CERNER MILLENNIUM Blood UA Negative Negative mg/dL [facility]ERNER MILLENNIUM Ketones UA 20(A) Negative mg/dL CERNER MILLENNIUM Nitrite UA Negative Negative CERNER MILLENNIUM Leukocytes UA Negative Negative mcL CER NER MILLENNIUM Appearance UA Hazy(A) Clear CERNER MILLENNIUM Spec [place] UA 1.026 1.002 - 1.030 CERNER MILLENNIUM Color UA Yellow Yellow CERNER MILLENNIUM RBC UA 32(H) 0 - 4 /HPF CERNER MILLENNIUM WBC UA 5 0 - 5 /HPF CERNER MILLENNIUM Bacteria UA Rare(A) None /HPF CERNER MILLENNIUM Squam Epith UA 1 <=4 /HPF CERNE R MILLENNIUM Trans Epith UA 1 <=1 /HPF CERNE R MILLENNIUM Amorph Adina UA Rare(A) None /HPF CERNE R MILLENNIUM Urine specimen (specimen) 05/20/2014 6:46 PM EST 05/20/2014 6:55 PM EST Narrative Resulting Agency Comment Spec In Lab Belkis Louie MD URINE ORDERABLES Performing Organization Address [facility] [[email or web address]] Co de Phone Number [facility] * L-Lactate2 Whole Blood (05/20/2014 6:17 PM EST) Lactate WB 1.6 0.5 - 2.2 mmol/L [facility] Blood specimen (specimen) 05/20/2014 6:17 PM EST 05/20/2014 6:17 PM EST Belkis Louie MD CHEMISTRY ORDERABLES Performing Organization Address [facility] [[email or web address]] Co de Phone Number [facility] * Blood culture (05/20/2014 6:00 PM EST) Blood Culture ? Patient Name: TANA SHELTON ? Ordered By: BELKIS LOUIE ? MR#: [id number] ?LOC: ??PA ? /Sex: ??1995 (18 years), ? Female ? PROCEDURE: Blood Culture ?SOURCE: Blood ? COLLECTED: 05/20/2014 18:00 ?FREE TEXT SOURCE: Left EJ ? STARTED: 05/20/2014 19:45 ? FINAL REPORT ? Final Report ? Verified:2014 23:01 ? No growth at 5 days. ? PRELIMINARY REPORT ? Preliminary Report ? Verified:2014 23:01 ? No growth at 4 days. ? CERNER MILLENNIUM Blood specimen (specimen) 05/20/2014 6:00 PM EST 05/20/2014 7:45 PM EST Comment:LEFT EJ Narrative Resulting Agency Comment Spec In Lab Belkis Louie MD MICROBIOLOGY - BLOOD ORDERABLES Performing Organization Address City/[facility] [[email or web address]] Co de Phone Number [facility] TOMASENNI[facility] * Green Tube HOLD (05/20/2014 5:15 PM EST) Pathologist [facility] Green Hold Sample in lab. CERALIN TOMASENNIUM Blood specimen (specimen) Venous Draw / Unknown 05/20/2014 5:15 PM EST 05/20/2014 5:32 PM EST Belkis Louie MD CHEMISTRY ORDERABLES Performing Organization Address [facility] [[email or web address]] Co de Phone Number [facility] KEMPI[facility] * Differential, Automated (05/20/2014 5:15 PM EST) Neutrophils % 71.0 % CERNER MILLENNIUM Neutr Abs (ANC) 5.94 1.50 - 6.30 x10(3)/mcL CERNER MILLENNIUM Lymphocytes % 21.5 % CERNER MILLENNIUM Lymphocytes Abs 1.8 1.0 - 3.6 x10(3)/mcL CERNER MILLENNIUM Monocytes % 6.0 % CERNER MILLENNIUM Monocyte Abs 0.5 0.2 - 1.0 x10(3)/mcL CERNER MILLENNIUM Eosinophils % 1.2 % CERNER MILLENNIUM Eosinophils Abs 0.1 0.0 - 0.5 x10(3)/mcL CERNER MILLENNIUM Basophils % 0.2 % CERNER MILLENNIUM Basophils Abs 0.0 0.0 - 0.2 x10(3)/mcL CERNER MILLENNIUM Immature Gran % 0.10 % CERN ER MILLENNIUM Comment: Immature granulocytes(IG's)percentage and absolute count will include metamyelocytes, myelocytes, and promyelocytes. Blood smears from CBCs yielding IG's will be scanned manually for concordance. If this scan disagrees with the automated IG or if promyelocytes are noted, a manual differential will be performed. Debora Gran Abs 0.01 0.00 - 0.05 x10(3)/mcL CERNER MILLENNIUM Blood specimen (specimen) 05/20/2014 5:15 PM EST 05/20/2014 5:31 PM EST Narrative Resulting Agency Comment Spec In Lab Belkis Louie MD HEMATOLOGY ORDERABLE S CERALIN MILLENNI[facility] * (ABNORMAL) Hemogram (05/20/2014 5:15 PM EST) WBC 8.4 4.0 - 10.0 x10(3)/mcL CERNER MILLENNIUM RBC 4.80 3.93 - 5.22 x10(6)/mcL CERNER MILLENNIUM Hemoglobin 14.0 11.2 - 15.7 gm/dL CERNER MILLENNIUM Hematocrit 42.0 34.0 - 45.0 % CERNER MILLENNIUM MCV 87.5 79.0 - 94.0 fL CERNER MILLENNIUM MCH 29.2 26.6 - 32.2 pg CERNER MILLENNIUM MCHC 33.3 32.0 - 36.5 gm/dL CERNER MILLENNIUM Platelets 405(H) 145 - 370 x10(3)/mcL CERNER MILLENNIUM RDWSD 44.5 35.0 - 46.0 fL CERNER MILLENNIUM RDWCV 13.9 10.9 - 14.4 % CERNER MILLENNIUM MPV 10.8 9.0 - 12.0 fL CERNER MILLENNIUM Blood specimen (specimen) 05/20/2014 5:15 PM EST 05/20/2014 5:31 PM EST Narrative Resulting Agency Comment Spec In Lab Belkis Louie MD HEMATOLOGY ORDERABLE S [facility]ERALIN [facility] * Blood culture (05/20/2014 5:15 PM EST) Blood Culture ? Patient Name: TANA SHELTON ? Ordered By: BELKIS LOUIE ? MR#: [id number] ?LOC: ??PA ? /Sex: ??1995 (18 years), ? Female ? PROCEDURE: Blood Culture ?SOURCE: Blood ? COLLECTED: 05/20/2014 17:15 ? BODY SITE: Left Hand ? STARTED: 05/20/2014 19:17 ?FREE TEXT SOURCE: Hold until MD hull ? FINAL REPORT ? Final Report ? Verified:2014 23:01 ? No growth at 5 days. ? PRELIMINARY REPORT ? Preliminary Report ? Verified:2014 23:01 ? No growth at 4 days. ? LINDA BASHIR Blood specimen (specimen) STRUCTURE OF LEFT HAND / Unknown 05/20/2014 5:15 PM EST 05/20/2014 7:17 PM EST Comment:HOLD UNTIL MD HULL Narrative Resulting Agency Comment Spec In Lab Belkis Louie MD MICROBIOLOGY - BLOOD ORDERABLES Performing Organization Address City/[facility] de Phone Number [facility] * Glucose, random (05/20/2014 5:15 PM EST) Glucose Lvl 81 60 - 199 mg/dL [facility] Comment:Diabetes: >=200 mg/d L plus symptoms Blood specimen (specimen) 05/20/2014 5:15 PM EST 05/20/2014 5:31 PM EST Narrative Resulting Agency Comment Spec In Lab Belkis Louie MD CHEMISTRY ORDERABLES Performing Organization Address [facility] de Phone Number [facility] * (ABNORMAL) Creatinine (05/20/2014 5:15 PM EST) Creatinine 0.37(L) 0.70 - 1.20 mg/dL [facility] Comment: Please note that the pediatric reference intervals supplied above were not validated at [facility]. Results from pediatric patients should be interpreted in conjunction to the patient's age, height and muscle mass. Estimated GFR >60 >=60 [facility] Comment: This estimated GFR (eGFR) value was calculated using the MDRD equation which has been validated on patients between the ages of 18 and 70. The MDRD should not be used to assess kidney function in patients < 18 years of age or in patients with extremes of body mass, or in patients with acute kidney failure. This value should be multiplied by 1.2 for patients. For further information please copy and paste the following links into your internet browser. [email or web address] Blood specimen (specimen) 05/20/2014 5:15 PM EST 05/20/2014 5:31 PM EST Narrative Resulting Agency Comment Spec In Lab Belkis Louie MD CHEMISTRY ORDERABLES Performing Organization Address [facility] de Phone Number LINDA BASHIR * BUN (05/20/2014 5:15 PM EST) BUN 9 8 - 18 mg/dL [facility]ERNER MILLENNIUM Blood specimen (specimen) 05/20/2014 5:15 PM EST 05/20/2014 5:31 PM EST Narrative Resulting Agency Comment Spec In Lab Belkis Louie MD CHEMISTRY ORDERABLES LINDA BASHIR * (ABNORMAL) Electrolytes panel (05/20/2014 5:15 PM EST) Sodium 138 135 - 145 mmol/L CERNER MILLENNIUM Potassium 3.7 3.5 - 5.0 mmol/L [facility]ERNER MILLENNIUM Comment: Please note: ??Patients with WBC >100,000 may have falsely elevated Potassium levels. ??For accurate Potassium quantification in these patients send serum separator tube (gold top) for subsequent determinations. ??Contact the Clinical Chemistry Laboratory if there are any questions. Chloride 101 98 - 107 mmol/L CERNER MILLENNIUM CO2 20(L) 22 - 31 mmol/L CERNER MILLENNIUM Anion Gap 17(H) 5 - 15 mmol/L CERNER MILLENNIUM Blood specimen (specimen) 05/20/2014 5:15 PM EST 05/20/2014 5:31 PM EST Narrative Resulting Agency Comment Spec In Lab Belkis Louie MD CHEMISTRY ORDERABLES Performing Organization Address [facility] [[email or web address]] Co de Phone Number LINDA BASHIR documented in this encounter Visit Diagnoses Diagnosis Febrile illness, acute Fever, unspecified documented in this encounter Administered Medications Inactive Administered Medications - up to 3 most recent administrations Medication Order MAR Action Action Date Dose Rate Site acetaminophen (TYLENOL) 325 mg tablet 1 dose, Starting on 05/20/14 at 1741, Until 05/20/14 at 1752, LEELA FELIZ: cabinet override Given 05/20/2014 5:52 PM EST 650 mg acetaminophen (TYLENOL) 650 mg/20.3 mL oral liquid 714.0394 mg 714.0394 mg (rounded from 714 mg = 15 mg/kg/dose ? 47.6 kg), Oral, EVERY 6 HOURS, First dose on 05/20/14 at 2245, Until Discontinued, Routine Given 05/22/2014 12:33 AM EST 714.0394 mg Given 05/21/2014 3:49 PM EST 714.0394 mg Given 05/21/2014 10:45 AM EST 714.0394 mg acetaminophen (TYLENOL) suppository 325 mg 325 mg, Rectal, EVERY 4 HOURS PRN, Starting on 05/22/14 at 0716, Until Dianne 05/25/14 at 1421, Fever, Maximum dose of acetaminophen is 4000 mg from all sources in 24 hours., Routine Given 05/23/2014 4:29 PM EST 325 mg Given 05/23/2014 12:00 PM EST 325 mg Given 05/23/2014 6:23 AM EST 325 mg acetaminophen (TYLENOL) suppository 650 mg 650 mg, Rectal, EVERY 4 HOURS PRN, Starting on Thu05/26/14 at 0904, Until Thu06/02/14 at 1832, Pain, Fever, Give if unable to tolerate PO, Maximum dose of acetaminophen is 4000 mg from all sources in 24 hours., Routine Given 05/31/2014 5:02 PM EST 650 m g Given 05/31/2014 10:10 AM EST 650 mg Given 05/29/2014 9:25 AM EST 650 mg baclofen (LIORESAL) tablet 10 mg 10 mg, Oral, NIGHTLY, First dose on Thu05/21/14 at 2100, Until Discontinued, Routine Given 06/01/2014 6:27 PM EST 10 mg Given 05/31/2014 5:57 PM EST 10 mg Given 05/30/2014 6:01 PM EST 10 mg bisacodyl (DULCOLAX) suppository 10 mg 10 mg, Rectal, DAILY PRN, Starting on Thu05/21/14 at 0126, Until Thu06/02/14 at 1832, Constipation, Administer if needed per patient's routine or if no bowel movement within 48 hours to achieve: 1) One bowel movement at least every 48 hours, AND 2) Without straining. If multiple bowel medications ordered, consider adding if docusate or milk of magnesia not sufficient., Routine Given 05/31/2014 12:38 PM EST 10 mg Given 05/22/2014 5:39 PM EST 10 mg cefTAZidime (FORTAZ) 2g vial attach to sodium chloride 0.9% 50 mL Mini-Bag Plus 2 g, Intravenous, EVERY 8 HOURS, First dose on Thu05/22/14 at 1900, Until Discontinued, Administer over 30 Minutes, Attach to 50 mL sodium chloride 0.9% Mini-Bag Plus, Restricted Antibiotic: Please indicate the most appropriate choice: ID Approval by Nely Boss, 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 Given 06/02/2014 5:57 AM EST 2 g 100 mL/hr Given 06/01/2014 10:41 PM EST 2 g 100 mL/hr Given 06/01/2014 2:10 PM EST 2 g 100 mL/hr cefTRIAXone (ROCEPHIN) 1g in dextrose 5% 50mL 1 g, Intravenous, ONCE, 1 dose, On 05/20/14 at 2315, Administer over 30 Minutes, 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 Given 05/21/2014 1:32 AM EST 1 g 100 mL/hr cefTRIAXone (ROCEPHIN) 2g in dextrose 5% 50mL 2,000 mg (2 g), Intravenous, EVERY 12 HOURS, First dose on 05/20/14 at 1000, Until Discontinued, Administer over 30 Minutes, 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 Given 05/22/2014 10:59 AM EST 2,000 mg 100 mL/hr Given 05/21/2014 10:13 PM EST 2,000 mg 100 mL/hr Given 05/21/2014 10:00 AM EST 2,000 mg 100 mL/hr ciprofloxacin (CIPRO) 500 mg/5 mL oral suspension 250 mg 250 mg, Oral, 2 TIMES DAILY, First dose on 05/27/14 at 1000, Until Discontinued, Indication for (Active or Suspected): Skin/Skin Structure Given 06/02/2014 8:31 AM EST 250 mg Given 06/01/2014 8:10 PM EST 250 mg Given 06/01/2014 7:00 AM EST 250 mg diaZEPam (VALIUM) 5 mg/5 mL (5 mL) oral solution 5 mg 5 mg, Oral, 2 TIMES DAILY, First dose on 05/20/14 at 2245, Until Discontinued, Routine Given 06/01/2014 8:51 PM EST 5 mg Given 05/31/2014 8:51 PM EST 5 mg Given 05/30/2014 8:53 PM EST 5 mg diaZEPam (VALIUM) 5 mg/mL injection 2 mg 2 mg, Intravenous, ONCE, 1 dose, On 05/20/14 at 1834, STAT Given 05/20/2014 6:34 PM EST 2 mg diaZEPam (VALIUM) 5 mg/mL injection 2 mg 2 mg, Intravenous, ONCE PRN, 1 dose, Starting on 05/21/14 at 1546, Until Thu05/21/14 at 1545, agitiation/muscle spasm, STAT Given 05/21/2014 3:45 PM EST 2 mg diphenhydrAMINE (BENADRYL) injection 25 mg 25 mg, Intravenous, EVERY 6 HOURS PRN, Starting on Tu05/23/14 at 1357, Until Thu06/02/14 at 1832, Itching, Routine Given 05/24/2014 12:33 PM EST 25 mg Given 05/24/2014 3:51 AM EST 25 mg Given 05/23/2014 7:30 PM EST 25 mg diphenhydrAMINE (BENADRYL) injection 50 mg 50 mg, Intravenous, ONCE, 1 dose, On 05/20/14 at 1907, STAT Given 05/20/2014 7:34 PM EST 50 mg docusate sodium (COLACE) capsule 100 mg 100 mg, Oral, 2 TIMES DAILY, First dose on Thu05/21/14 at 0145, Until Discontinued, Routine Given 05/30/2014 8:53 PM EST 100 mg Given 05/30/2014 8:54 AM EST 100 mg Given 05/29/2014 8:22 PM EST 100 mg docusate sodium (COLACE) oral liquid 100 mg 100 mg, Oral, 2 TIMES DAILY, First dose on Thu05/31/14 at 1230, Until Discontinued, Routine Given 06/01/2014 10:03 AM EST 100 mg Given 05/31/2014 8:51 PM EST 100 mg Given 05/31/2014 12:42 PM EST 100 mg fentaNYL (PF) 50 mcg/mL 2mL syringe 25 mcg, Intravenous, EVERY 5 MIN PRN, Pain, for breakthrough pain, Starting on 05/20/14 at 2215, Until Thu05/21/14 at 0100, Hold for respiratory rate less than 10 per minute. Maximum dose: 250 mcg over one hour., PACU Recovery Given 05/21/2014 12:21 AM EST 25 mcg Given 05/21/2014 12:14 AM EST 25 mcg Given 05/21/2014 12:09 AM EST 25 mcg heparin flush (PF) 10 unit/mL flush 30 Units 30 Units (3 mL), Intravenous, 2 TIMES DAILY PRN, Starting on Dianne 05/25/14 at 1657, Until Thu06/02/14 at 1832, Line Care, Routine Given 05/29/2014 2:11 PM EST 30 Un its Given 05/26/2014 11:06 AM EST 30 Units HYDROmorphone (DILAUDID) injection 0.2 mg 0.2 mg, Intravenous, EVERY 2 HOURS PRN, Starting on Thu05/26/14 at 2000, Until Thu06/02/14 at 1832, Pain, Routine Given 05/27/2014 10:16 PM EST 0.2 mg Given 05/27/2014 12:56 AM EST 0.2 mg Given 05/26/2014 8:14 PM EST 0.2 mg lactated ringers 250 mL IV bolus at 250 mL/hr, Intravenous, ONCE, 1 dose, On 05/27/14 at 0845 Given 05/27/2014 9:28 AM EST 25 0 mL/hr levofloxacin (LEVAQUIN) tablet 750 mg 750 mg, Oral, EVERY MORNING, 10 doses, First dose on Thu06/02/14 at 1400, Last dose on Thu06/11/14 at 0700, Routine, Indication for (Active or Suspected): Skin/Skin Structure, Restricted Antibiotic: Please indicate the most appropriate choice: ID Approval by Wai Crabtree Given 06/02/2014 3:49 PM EST 750 mg levonorgestrel-ethinyl estradiol (SEASONALE) 0.15-30 mg-mcg per tablet 1 tablet 1 tablet, Oral, DAILY, First dose on Thu05/21/14 at 0900, Until Discontinued, Pt may use own med, Routine Given 06/01/2014 6:29 PM EST 1 tablet Given 05/31/2014 6:05 PM EST 1 tablet Given 05/30/2014 6:01 PM EST 1 tablet LORazepam (ATIVAN) tablet 2 mg 2 mg, Oral, ONCE, 1 dose, On Dianne 05/25/14 at 1445, Routine Given 05/25/2014 2:32 PM EST 2 mg metroNIDAZOLE (FLAGYL) 500 mg in sodium chloride 0.9% 100 mL 500 mg, Intravenous, EVERY 8 HOURS SCHEDULED, First dose on 05/20/14 at 2245, Until Discontinued, Administer over 30 Minutes, 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 Given 05/22/2014 5:40 AM EST 500 mg 200 mL/hr Given 05/21/2014 10:55 PM EST 500 mg 200 mL/hr Given 05/21/2014 1:53 PM EST 500 mg 200 mL/hr morphine 2 mg/mL carpuject 2 mg 2 mg, Intravenous, ONCE, 1 dose, On 05/20/14 at 1945, STAT Given 05/20/2014 7:54 PM EST 2 mg nystatin (MYCOSTATIN) cream Topical, 2 TIMES DAILY, First dose on Thu05/31/14 at 0900, Until Discontinued Given 06/02/2014 8:36 AM EST Given 06/01/2014 8:11 PM EST Given 06/01/2014 9:00 AM EST ondansetron (ZOFRAN) injection 4 mg 4 mg, Intravenous, EVERY 30 MIN PRN, Starting on 05/20/14 at 2215, Until 05/21/14 at 0100, Nausea, May repeat 4 mg once in 30 minutes. Consider prochlorperazine if ineffective., PACU Recovery Given 05/20/2014 11:45 PM EST 4 mg ondansetron (ZOFRAN) injection 4 mg 4 mg, Intravenous, EVERY 8 HOURS PRN, Starting on 05/22/14 at 0615, Until 05/22/14 at 0937, Nausea Given 05/22/2014 6:46 AM EST 4 mg ondansetron (ZOFRAN) injection 4 mg 4 mg, Intravenous, EVERY 8 HOURS PRN, Starting on 05/22/14 at 0936, Until Thu06/02/14 at 1832, Nausea, may repeat if not effective in 30 minutes. Given 05/26/2014 6:45 AM EST 4 mg Given 05/22/2014 9:53 AM EST 4 mg oxyCODONE (ROXICODONE) immediate release tablet 5-10 mg 5-10 mg, Oral, EVERY 4 HOURS PRN, Starting on 05/20/14 at 2225, Until 06/02/14 at 1832, Pain, PAIN, 5 mg pain 1-6 10 mg pain 7-10, Routine Given 06/01/2014 2:16 PM EST 5 mg Given 05/31/2014 4:59 PM EST 5 mg Given 05/30/2014 2:26 PM EST 5 mg piperacillin-tazobactam (ZOSYN) 3.375 g in dextrose 5% 50 mL 3.375 g, Intravenous, EVERY 6 HOURS, First dose on Thu05/22/14 at 1530, Until Discontinued, Administer over 4 Hours, Indication for (Active or Suspected): GI/Intra-abdominal Given 05/23/2014 6:23 AM EST 3.375 g 12.5 mL/hr Given 05/23/2014 12:21 AM EST 3.375 g 12.5 mL/hr Given 05/22/2014 6:29 PM EST 3.375 g 12.5 mL/hr polyethylene glycol (MIRALAX) packet 17 g 17 g, Oral, DAILY, First dose on Thu05/21/14 at 0900, Until Discontinued Given 06/01/2014 10:03 AM EST 17 g Given 05/31/2014 9:59 AM EST 17 g Given 05/30/2014 8:59 AM EST 17 g potassium chloride 10 mEq in 100 mL 10 mEq, Intravenous, EVERY 2 HOURS, 4 doses, First dose on Thu05/22/14 at 0900, Last dose on Thu05/22/14 at 1500, Administer over 60 Minutes Given 05/22/2014 9:02 AM EST 10 mEq 100 mL/hr potassium phosphate (monobasic) (K-PHOS) tablet 500 mg 500 mg, Oral, ONCE, 1 dose, On Thu05/22/14 at 1415, Dissolve tablets in 6-8 oz of water; for best results, soak tablets in water for 2-5 minutes, then stir and give to patient., Routine Given 05/22/2014 2:52 PM EST 500 mg propofol (DIPRIVAN) infusion 50 mcg/kg/min ? 47.6 kg (14.28 mL/hr, rounded to 14.3 mL/hr), Intravenous, CONTINUOUS, Starting on 05/20/14 at 2315, Until Thu05/21/14 at 0014, PACU Recovery, Routine Continued Bag 05/20/2014 11:15 PM EST 50 mcg/kg/min 14.3 mL/hr Restarted 05/20/2014 11:07 PM EST 50 mcg/kg/min 14.3 mL/h r sodium chloride 0.9 % flush 5 mL 5 mL, Intravenous, 2 TIMES DAILY, First dose on Thu05/21/14 at 0145, Until Discontinued, Recovery (Recovery-Hospital Unit), Routine Given 05/28/2014 9:09 AM EST 5 mLs Given 05/23/2014 12:01 PM EST 5 mLs Given 05/21/2014 1:45 AM EST 5 mLs sodium chloride 0.9% 1,000 mL IV bolus Intravenous, ONCE, 1 dose, On 05/27/14 at 0100 Given 05/27/2014 12:55 AM EST sodium chloride 0.9% infusion 1,000 mL (1 L), Intravenous, ONCE, 1 dose, On 05/20/14 at 1707 New Bag 05/20/2014 5:07 PM EST 1,000 mLs sodium chloride 0.9% infusion 50 mL/hr, Intravenous, CONTINUOUS, Starting on Thu05/20/14 at 2245, Until Thu05/22/14 at 0759, Recovery (Recovery-Hospital Unit) New Bag 05/22/2014 12:47 AM EST 50 mL/hr 50 mL /hr New Bag 05/21/2014 12:10 AM EST 50 mL/hr 50 mL/hr sodium chloride 0.9% with potassium chloride 20 mEq infusion 50 mL/hr, Intravenous, CONTINUOUS, Starting on Thu05/22/14 at 0815, Until Thu05/22/14 at 1031 New Bag 05/22/2014 8:25 AM EST 50 mL/hr 50 mL /hr sodium chloride 0.9% with potassium chloride 20 mEq infusion 50 mL/hr, Intravenous, CONTINUOUS, Starting on Thu05/23/14 at 1830, Until Thu06/02/14 at 1832 New Bag 06/01/2014 5:05 PM EST 50 mL/hr 50 mL/ hr Restarted 05/31/2014 2:45 PM EST 50 mL/hr 50 mL/hr New Bag 05/31/2014 12:44 PM EST 50 mL/hr 50 mL/hr sodium chloride 0.9% with potassium chloride 40 mEq infusion 50 mL/hr, Intravenous, CONTINUOUS, Starting on Thu05/22/14 at 1100, Until Thu05/23/14 at 1800 New Bag 05/22/2014 12:16 PM EST 50 mL/hr 50 mL/hr sodium phosphates (FLEET) 19-7 gram/118 mL ADULT rectal enema 1 Bottle 1 Bottle, Rectal, ONCE, 1 dose, On Thu05/31/14 at 1330, Routine Given 05/31/2014 3:02 PM EST 1 Bottle vancomycin 1 g in dextrose 5% 200 mL 1,000 mg (1 g), Intravenous, EVERY 12 HOURS, First dose on Thu05/20/14 at 1800, Until Discontinued, Maximum infusion rate is 1 gram/hour. If flushing of the face, neck, upper body, arms, and/or back occurs decrease infusion rate by 50% to reduce the severity of symptoms. This medication may have an associated drug lab level. Please see MAR for scheduled level., Routine Given 05/22/2014 7:10 AM EST 1,000 mg Given 05/21/2014 6:51 PM EST 1,000 mg Given 05/21/2014 6:41 AM EST 1,000 mg vancomycin 1 g in dextrose 5% 200 mL 1,000 mg (1 g), Intravenous, EVERY 8 HOURS, First dose (after last modification) on Thu05/22/14 at 1500, Until Discontinued, Maximum infusion rate is 1 gram/hour. If flushing of the face, neck, upper body, arms, and/or back occurs decrease infusion rate by 50% to reduce the severity of symptoms. This medication may have an associated drug lab level. Please see MAR for scheduled level., Routine Given 05/22/2014 2:19 PM EST 1,000 mg vancomycin 1 g in dextrose 5% 200 mL 1,000 mg (1 g), Intravenous, EVERY 8 HOURS, First dose on Thu05/23/14 at 0900, Until Discontinued, Maximum infusion rate is 1 gram/hour. If flushing of the face, neck, upper body, arms, and/or back occurs decrease infusion rate by 50% to reduce the severity of symptoms. This medication may have an associated drug lab level. Please see MAR for scheduled level., Routine Given 05/23/2014 11:53 AM EST 1,000 mg vancomycin 1 g in dextrose 5% 200 mL 1,000 mg (1 g), Intravenous, EVERY 8 HOURS, First dose (after last modification) on Thu05/23/14 at 2000, Until Discontinued, Maximum infusion rate is 1 gram/hour. If flushing of the face, neck, upper body, arms, and/or back occurs decrease infusion rate by 50% to reduce the severity of symptoms. This medication may have an associated drug lab level. Please see MAR for scheduled level., Routine Given 05/24/2014 12:41 PM EST 1,000 mg Given 05/24/2014 3:47 AM EST 1,000 mg Given 05/23/2014 7:31 PM EST 1,000 mg vancomycin 1 g in dextrose 5% 200 mL 1,000 mg (1 g), Intravenous, EVERY 8 HOURS, First dose (after last modification) on 05/27/14 at 0930, Until Discontinued, Maximum infusion rate is 1 gram/hour. If flushing of the face, neck, upper body, arms, and/or back occurs decrease infusion rate by 50% to reduce the severity of symptoms. This medication may have an associated drug lab level. Please see MAR for scheduled level., STAT Given 06/02/2014 8:36 AM EST 1,000 mg Given 06/02/2014 1:20 AM EST 1,000 mg Given 06/01/2014 6:17 PM EST 1,000 mg documented in this encounter Active and Recently Administered Medications Times are shown in EST. Scheduled Medication Order 05/31/2014 06/01/2014 06/02/2014 baclofen (LIORESAL) tablet 10 mg (CANCELED) 10 mg, Oral, NIGHTLY, First dose on 05/21/14 at 2100, Until Discontinued, Routine 1757 (Given - Provider: Dolores Patino RN) 1827 (Given - Provider: Dolores Patino RN) cefTAZidime (FORTAZ) 2g vial attach to sodium chloride 0.9% 50 mL Mini-Bag Plus (CANCELED) 2 g, Intravenous, EVERY 8 HOURS, First dose on 05/22/14 at 1900, Until Discontinued, Administer over 30 Minutes, Attach to 50 mL sodium chloride 0.9% Mini-Bag Plus, Restricted Antibiotic: Please indicate the most appropriate choice: ID Approval by Nely Boss, 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 0616 (Given - Provider: Linsey Mcintyre RN)1446 (Given - Provider: Dolores Patino RN)2201 (Given - Provider: Linsey Mcintyre RN) 0627 (Given - Provider: Linsey Mcintyre, EUNICE)1410 (Given - Provider: Tasha Yu)224 (Given - Provider: Margot Monzon RN) 0557 (Given - Provider: Margot Monzon RN) ciprofloxacin (CIPRO) 500 mg/5 mL oral suspension 250 mg (CANCELED) 250 mg, Oral, 2 TIMES DAILY, First dose on 05/27/14 at 1000, Until Discontinued, Indication for (Active or Suspected): Skin/Skin Structure 0804 (Given - Provider: Linsey Mcintyre RN)2050 (Given - Provider: Linsey Mcintyre RN) 07 (Given - Provider: Dolores Patino RN)2009 (Given - Provider: Margot Monzon RN) 0831 (Given - Provider: Hedy Vazquez RN) diaZEPam (VALIUM) 5 mg/5 mL (5 mL) oral solution 5 mg (CANCELED) 5 mg, Oral, 2 TIMES DAILY, First dose on 05/20/14 at 2245, Until Discontinued, Routine 0900 (Not Given - Provider: Dolores Patino RN - Reason: Patient/family refused - Comment: Mom refusing)2050 (Given - Provider: Linsey Mcintyre RN) 0900 (Not Given - Provider: Dolores Patino RN - Reason: Patient/family refused - Comment: Caregiver Fannie refused as per Mom's directions and home routine)2050 (Given - Provider: Margot Monzon RN) 0900 (Not Given - Provider: Hedy Vazquez RN - Reason: Contraindicated - Comment: Frequent loose stools) docusate sodium (COLACE) oral liquid 100 mg (CANCELED) 100 mg, Oral, 2 TIMES DAILY, First dose on Thu05/31/14 at 1230, Until Discontinued, Routine 1242 (Given - Provider: Dolores Patino RN)2050 (Given - Provider: Linsey Mcintyre RN) 1003 (Given - Provider: Dolores Patino RN)2100 (Not Given - Provider: Margot Monzon RN - Reason: Patient/family refused) 0900 (Not Given - Provider: Hedy Vazquez RN - Reason: See comment - Comment: Frequent loose stool) levofloxacin (LEVAQUIN) tablet 750 mg 750 mg, Oral, EVERY MORNING, 10 doses, First dose on Thu06/02/14 at 1400, Last dose on Thu06/11/14 at 0700, Routine, Indication for (Active or Suspected): Skin/Skin Structure, Restricted Antibiotic: Please indicate the most appropriate choice: ID Approval by Wai Crabtree [id number] (Given - Provid er: Elmer Cotto RN) levonorgestrel-ethinyl estradiol (SEASONALE) 0.15-30 mg-mcg per tablet 1 tablet (CANCELED) 1 tablet, Oral, DAILY, First dose on Thu05/21/14 at 0900, Until Discontinued, Pt may use own med, Routine 1805 (Given - Provider: Dolores Patino RN) 1829 (Given - Provider: Dolores Patino RN) nystatin (MYCOSTATIN) cream (CANCELED) Topical, 2 TIMES DAILY, First dose on Thu05/31/14 at 0900, Until Discontinued 1000 (Given - Provider: Dolores Patino RN)2100 (Given - Provider: Linsey Mcintyre RN) 0900 (Given - Provider: Dolores Patino RN)2010 (Given - Provider: Margot Monzon RN) 0836 (Given - Provider: Hedy Vazquez RN) polyethylene glycol (MIRALAX) packet 17 g (CANCELED) 17 g, Oral, DAILY, First dose on Thu05/21/14 at 0900, Until Discontinued 0959 (Given - Provider: Dolores Patino RN) 1003 (Given - Provider: Dolores Patino RN - Comment: Caregiver) 0900 (Not Given - Provider: Hedy Vazquez RN - Reason: Contraindicated - Comment: frequennt loose stools) sodium phosphates (FLEET) 19-7 gram/118 mL ADULT rectal enema 1 Bottle (COMPLETED) 1 Bottle, Rectal, ONCE, 1 dose, On Thu05/31/14 at 1330, Routine 1502 (Given - Provider: Dolores Patino RN) vancomycin 1 g in dextrose 5% 200 mL (CANCELED)(Linked Group 1) 1,000 mg (1 g), Intravenous, EVERY 8 HOURS, First dose (after last modification) on Thu05/27/14 at 0930, Until Discontinued, Maximum infusion rate is 1 gram/hour. If flushing of the face, neck, upper body, arms, and/or back occurs decrease infusion rate by 50% to reduce the severity of symptoms. This medication may have an associated drug lab level. Please see MAR for scheduled level., STAT 0138 (Given - Provider: Linsey Mcintyre RN)0943 (Given - Provider: Dolores Patino, EUNICE)1758 (Given - Provider: Dolores Patino RN) 0142 (Given - Provider: Linsey Mcintyre RN)1027 (Given - Provider: Yas Cam RN)1817 (Given - Provider: Dolores Patino RN) 0120 (Given - Provider: Margot Monzon RN)0836 (Given - Provider: Hedy Vazquez RN) Continuous Medication Order 05/31/2014 06/01/2014 06/02/2014 sodium chloride 0.9% with potassium chloride 20 mEq infusion (CANCELED) 50 mL/hr, Intravenous, CONTINUOUS, Starting on Thu05/23/14 at 1830, Until Thu06/02/14 at 1832 1244 (New Bag - Provider: Dolores Patino RN)1330 (Stopped - Provider: Dolores Patino RN - Comment: OOb to WC with PT)1445 (Restarted - Provider: Dolores Patino RN) 1705 (New Bag - Provider: Dolores Patino RN) 1500 (Stopped - Provider: Elmer Cotto RN) PRN Medication Order 05/31/2014 06/01/2014 06/02/2014 acetaminophen (TYLENOL) suppository 650 mg (CANCELED)(Linked Group 2) 650 mg, Rectal, EVERY 4 HOURS PRN, Starting on Thu05/26/14 at 0904, Until Thu06/02/14 at 1832, Pain, Fever, Give if unable to tolerate PO, Maximum dose of acetaminophen is 4000 mg from all sources in 24 hours., Routine 1010 (Given - Provider: Dolores Patino RN)1702 (Given - Provider: Dolores Patino RN) bisacodyl (DULCOLAX) suppository 10 mg 10 mg, Rectal, DAILY PRN, Starting on 05/21/14 at 0126, Until Thu06/02/14 at 1832, Constipation, Administer if needed per patient's routine or if no bowel movement within 48 hours to achieve: 1) One bowel movement at least every 48 hours, AND 2) Without straining. If multiple bowel medications ordered, consider adding if docusate or milk of magnesia not sufficient., Routine 1238 (Given - Provider: Dolores Patino, EUNICE) oxyCODONE (ROXICODONE) immediate release tablet 5-10 mg (CANCELED) 5-10 mg, Oral, EVERY 4 HOURS PRN, Starting on 05/20/14 at 2225, Until Thu06/02/14 at 1832, Pain, PAIN, 5 mg pain 1-6 10 mg pain 7-10, Routine 1659 (Given - Provider: Dolores Patino, EUNICE) 1416 (Given - Provider: Dolores Patino RN) Linked Groups Order Group 1: vancomycin 1 g in dextrose 5% 200 mL (CANCELED)Jump to med 1,000 mg (1 g), Intravenous, EVERY 8 HOURS, First dose (after last modification) on 05/27/14 at 0930, Until Discontinued, Maximum infusion rate is 1 gram/hour. If flushing of the face, neck, upper body, arms, and/or back occurs decrease infusion rate by 50% to reduce the severity of symptoms. This medication may have an associated drug lab level. Please see MAR for scheduled level., STAT And Vancomycin, trough (CANCELED) Timed, PRN, Starting on 05/27/14 at 0848, Until Specified And Vancomycin Level - MAR Order Reminder () NOT APPLICABLE, ONCE, On 05/28/14 at 0915, 1 dose, This alert will be scheduled by a pharmacist after order placement. This order is a reminder to nursing staff to release and draw the PRN drug level at the specified time. It may be necessary to contact phlebotomy 60 minutes prior to the scheduled due time to assure a timely blood draw. Group 2: acetaminophen (TYLENOL) 650 mg/20.3 mL oral liquid 650 mg (CANCELED) 650 mg, Oral, EVERY 4 HOURS PRN, Starting on Thu05/26/14 at 0904, Until Thu06/02/14 at 1832, Pain, Fever, Maximum dose of acetaminophen is 4,000 mg from all sources in 24 hours., Routine Or acetaminophen (TYLENOL) suppository 650 mg (CANCELED)Jump to med 650 mg, Rectal, EVERY 4 HOURS PRN, Starting on Thu05/26/14 at 0904, Until Thu06/02/14 at 1832, Pain, Fever, Give if unable to tolerate PO, Maximum dose of acetaminophen is 4000 mg from all sources in 24 hours., Routine documented in this encounter Care Teams Head Transfer Clerk Relationship Specialty Start Date End Date Naina Lindsey MD [address] [place] [address] PCP - General 03/19/10 08/25/16 documented as of this encounter
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
--- OUTSIDE RECORDS SUMMARY | 2023-11-09 18:18 | XMS_ITS | Encounter Summary ---
Author Organization [facility] [place] [address] Care Team Providers Care Wrapper Operator Name Role Phone Naina Lindsey MD Primary Care Provider [phone] Reason for Visit * Reason Comments Post-op Problem Encounter Details Date Type Department Care Team (Late st Contact Info) Description 05/20/2014 7:24 PM EST - 05/20/2014 9:57 PM EST [place] [address] Freddy Burciaga MD [facility] [place] [address] @I & D, OPEN, DEEP ABSCESS, LUMBAR, SACRAL, LUMBOSACRAL (WRVU 12.64) Social History Tobacco Use Types Packs/Day Years [...] Routine, Hospital Performed Vendor / contact information: [facility] Patient location post discharge: home Service requested: IV abx Start date: 05/26/2014 Responsible MD post discharge contact info: WILL Smith (Edit) Referral to Home Health - at DISCHARGE Routine, Clinic Performed Agency name and contact information: [facility] Patient location post discharge: home What services are requested: Registered Nurse, Home Health Aide, Physical Therapy, Occupational Therapy Start date: 05/26/2014 Responsible MD post discharge contact info: PCP PATIENT'S LOCATION: Tana Shelton [address] [place] [phone] (home) In discussion with the attending physician, it is certified that this patient is under their care and that they, or a Nurse Practitioner,Clinical Nurse specialist or Physician Pharmacy Helper who is working directly with them, had [...] Continue with therapies OT: Continue with therapies DIRECTOR BIOLOGY: Continue support HOME HEALTH CARE AGENCY: [facility] Guide[facility]itter. PHONE: [phone] FAX: [phone] Start of care: 05/26/14 Please note that any additional orders needs or changes will need to be obtained from this patient's PCP: MD Coby BRAGG DR / [facility] [address] All VNA agencies which cover the area of patient's residence have been reviewed, either verbally or in writing, and patient/family have chosen the home health care agency noted Emergency contact: After hours and weekends, call the [facility] proofing machine operator at and ask them to page the neurosurgery resident conditioning yard supervisor. documented in this encounter Medications at Time [...] (AVS) and given to the patient or customer service representative. 6) If VNA was ordered, I faxed [...] the interim. ALEJANDRO Estrella * Darius Maguire T - 06/02/2014 7:18 AM EST Neurosurgery - [...] 0.9% 50 mL Mini-Bag Plus 2 g VftrzbsusmuN4N ??? baclofen 10 mg Oral Nightly ??? levonorgestrel-ethinyl estradiol 1 tablet Oral Daily ??? polyethylene glycol 17 g Oral Daily ??? sodium chloride 0.9 % 5 mL Intravenous BID ??? diaZEPam 5 mg Oral BID Continuous Infusions: ??? sodium chloride 0.9% with potassium chloride 20 mEq 50 mL/hr (06/01/14 4865) PRN Meds:acetaminophen OR acetaminophen, flu vaccine (36 mos+) (PF), HYDROmorphone, gadobutrol,heparin flush (PF), diphenhydrAMINE, metoclopramide, ondansetron, sodium chloride 0.9 %, lidocaine,bisacodyl, oxyCODONE Vitals: Temp: [36.5 ??C (97.7 ??F)-37.3 ??C (99.1 ??F)] Heart Rate: [79-138] Resp: [14-25] BP: (87-119)/(53-84) SpO2: [95 %-100 %] I/O: Intake/Output Summary (Last 24 hours) at 06/02/14 0718 Last data filed at 06/02/14 0557 Gross [...] has a firm antibiotic plan. * Mary Joe OT - 06/01/2014 4:52 PM EST Occupational [...] of elevated HR this am S: Kenneth Rocco. [facility], [id number] singing ABCs and counting along with stretches [...] pt to d/chome with support and continued PT/OT/MARINE EQUIPMENT RESEARCH ENGINEER/VNA services. Staff communication/Mobility Recommendations: Pt. Would [...] timed interventions: 30 minutes for TherEx-F Pager: [phone] Mary Joe, OT Occupational Therapy Rehabilitation Department * Isra Perez RN - 06/01/2014 2:43 PM EST Patient Name: Tana Shelton Patient Age: 18 y.o. Birthdate: 1995 Admit date: 05/20/2014 Attending Physician: Jamaal Samuel MD OFFICE OF CARE MANAGEMENT Farhana Perez RN Pager: [phone] CLINICAL AUTO GLASS INSTALLER PROGRESS NOTE e-DH reviewed. Report received from DEMI Sanchez. Patient continues to require acute inpatient care for the treatment of infection. Patient remains on triple abx while awaiting final cultures. [facility] and [facility] have been referred to for discharge. Met with patient's mother at bedside. Mom had multiple questions the other day regarding equipment for home. Mattress for hospital bed was ordered and delivered to home from [facility]. Tomasa Sling was ordered and is to be delivered by [facility] when it ships to [facility] warehouse. TLSO brace to be fitted by [facility]. Mom also inquired about a new motorized wheelchair. Called [facility] in [place] to see if patient would qualify, left message with Oliver- the rehabilitation physician for [facility]. Patient will need a assessment and lot [...] 0.9% 50 mL Mini-Bag Plus 2 g CosdkqspyqlW2F ??? baclofen 10 mg Oral Nightly ??? [...] 06/01/14 0644 Last data filed at 06/01/14 0627 Gross per 24 hour Intake 2990.3 ml Output 1585 ml Net 1405.3 ml Labs: Recent Labs 05/30/14 0650 05/29/14 0713 WBC 7.6 6.6 HGB 11.3 11.4 PLATELET 368 330 Recent Labs 05/30/14 0650 05/29/14 0713 NA 137 142 K 3.9 3.9 CL [...] has recovered and I can review the [facility] records and films * Natividad Esqueda, [...] family in a single story home in [place], [place]. Pt's mother reports that there is no stair requirement, and that she has all necessary equipment. Stairs: 0 without a rail to enter Baseline Mobility: Completely dependent for all care, home nursing VNA services 3x/week, school-based PT/OT/MARINE EQUIPMENT RESEARCH ENGINEER, pt due to receive a communication [...] than in previous treatment session, counting withthis junior copywriter during stretching Objective: Patient seen for 45 [...] internal rotators, adductors ?? Pt helped this junior copywriter with opposite UE when performing stretching as [...] session, playing with toys, playfully tricking this junior copywriter when counting during passive stretching, and helping [...] exercise Natividad Esqueda PT, DPT 05/31/2014 Pager: [phone] Physical Therapy Inpatient Rehabilitation Department * Nathalie [...] OF CARE MANAGEMENT Farhana Perez RN Pager: [phone] CLINICAL AUTO GLASS INSTALLER PROGRESS NOTE e-DH reviewed. Report received from DEMI Sanchez. Patient continues to require acute inpatient care for the treatment of infection. Patient is on triple abx. Patient needs a new mattress for her hospital bed at home. Patient's mother would like order placed with [employer]. Order pended and booking sent via [employer] Plan: CRC will continue to follow for [...] pt to d/chome with support and continued PT/OT/MARINE EQUIPMENT RESEARCH ENGINEER/VNA services. Staff communication/Mobility Recommendations: Pt. Would [...] timed interventions: 45 minutes for TherEx Pager: [phone] Mary Joe OT Occupational Therapy Rehabilitation Department * Darius Maguire T - 05/30/2014 6:41 AM EST Neurosurgery [...] 0.9% 50 mL Mini-Bag Plus 2 g RkdrgaebgueK6X ??? baclofen 10 mg Oral Nightly ??? [...] OF CARE MANAGEMENT Farhana Perez RN Pager: [phone] CLINICAL AUTO GLASS INSTALLER PROGRESS NOTE e-DH reviewed. Report received from [...] as pt becomes available. Please contact this junior copywriter with any further questions or concerns. Thank you. Pager: [phone] Mary Joe OTR/L Occupational Therapy Inpatient Rehabilitation * Natividad [...] family in a single story home in [place], [place]. Pt's mother reports that there is no stair requirement, and that she has all necessary equipment. Stairs: 0 without a rail to enter Baseline Mobility: Completely dependent for all care, home nursing VNA services 3x/week, school-based PT/OT/MARINE EQUIPMENT RESEARCH ENGINEER, pt due to receive a communication [...] pt very smiley today, counting with this junior copywriter during stretching, showing off her favorite toys [...] 55 minutes for functional therapeutic exercise Natividad Esqueda PT, DPT 05/29/2014 Pager: [phone] Physical Therapy Inpatient Rehabilitation Department * Wai [...] not hesitate to page us on pager [phone] with further questions or concerns. Patient discussed with Dr. Wai Crabtree. Dimple Messina MD Fellow, Infectious Disease 05/29/2014 ID Staff: Discussed with Dr. Messina. Agree with current regimen. This will be a very difficult regimen at [facility] some further discussion is needed. We are awaiting sensis on CoNS which may help us to narrow IVregimen. 15 minutes MArleth Crabtree MD * Darius Maguire T - 05/29/2014 6:48 AM EST Neurosurgery [...] 0.9% 50 mL Mini-Bag Plus 2 g JdqybhpyxufJ7S ??? baclofen 10 mg Oral Nightly ??? [...] I/O: Intake/Output Summary (Last 24 hours) at 05/29/14 0648 Last data filed at 05/29/14 0624 Gross per 24 hour Intake 1543.7 ml [...] controlled at this time. * Darius Maguire T - 05/28/2014 7:52 AM EST Neurosurgery - [...] 0.9% 50 mL Mini-Bag Plus 2 g BqyarswrxacI4X ??? baclofen 10 mg Oral Nightly ??? [...] 606.53 ml Labs: Recent Labs 05/27/14 0530 05/26/14 0415 WBC 6.8 7.4 HGB 10.5* 10.8* PLATELET 321 378* Recent Labs 05/27/14 0530 05/26/14 0415 NA 137 138 K 3.9 3.8 CL [...] Attending Physician: Freddy Burciaga MD Spoke with Gabriela, direct care RN. There is no definitive discharge date at this time per team. CRC received call from EUNICE Hair, from [place], [place] or Asking for status as they will follow her after discharge for IV antibiotic treatment. She will need an OPAT order faxed to above agency when she is ready for discharge as well as administration teaching for home. When ready for discharge, [facility] PHONE: [phone] FAX: [phone] will also need to be updated. Referral had been made by previous CRC. Covering pager #[phone] for pager #[phone]. * Darius Maguire T - 05/27/2014 8:23 [...] 0.9% 50 mL Mini-Bag Plus 2 g SghdfwgemggE7O ??? baclofen 10 mg Oral Nightly ??? levonorgestrel-ethinyl estradiol 1 tablet Oral Daily ??? polyethylene glycol 17 g Oral Daily ??? sodium chloride 0.9 % 5 mL Intravenous BID ??? docusate sodium 100 mg Oral BID ??? diaZEPam 5 mg Oral BID Continuous Infusions: ??? sodium chloride 0.9% with potassium chloride 20 mEq 50 mL/hr (05/26/141817) PRN Meds:vancomycin AND Vancomycin, trough AND Vancomycin [...] Dressing clean and dry Wound without fluctuance [address] Assessment/Plan:: 18 y.o. female s/p removal [...] family in a single story home in [place], [place]. Pt's mother reports that there is no stair requirement, and that she has all necessary equipment. Stairs: 0 without a rail to enter Baseline Mobility: Completely dependent for all care, home nursing VNA services 3x/week, school-based PT/OT/MARINE EQUIPMENT RESEARCH ENGINEER, pt due to receive a communication [...] call fay in reach Vitals: Temperature Temp: 36.2 ??C [...] 37 minutes for functional therapeutic exercise Natividad Esqueda PT, DPT 05/26/2014 Pager: [phone] Physical Therapy Inpatient Rehabilitation Department * Freddy Burciaga MD - 05/26/2014 6:27 AM EST Neurosurgery - Inpatient Progress Note ID: Tana Shelton, 18 y.o. female s/p removal of retained hardware, washout of infection 05/20 POD 6 Interval Hx: -ALEKSANDRA -Neurologically stable Objective: Medications: Scheduled Meds: ??? cefTAZidime (FORTAZ) 2g vial attach to sodium chloride 0.9% 50 mL Mini-Bag Plus 2 g MjergjagimyY2Q ??? baclofen 10 mg Oral Nightly ??? [...] Intake/Output Summary (Last 24 hours) at 05/26/14 06 Last data filed at 05/26/14 0400 Gross [...] (05/26) or when appropriate. Please page this junior copywriter if you have any questions, thank you. Natividad Esqueda PT Pager #[phone] Physical Therapy Inpatient Rehabilitation * Mary Joe, [...] pt to d/chome with support and continued PT/OT/MARINE EQUIPMENT RESEARCH ENGINEER/VNA services. Spoke to CRC this about thoracic brace re-fitting consult. And home [...] timed interventions: 27 minutes for TherEx Pager: [phone] Mary Joe OT Occupational Therapy Rehabilitation Department [...] hospital course unless consulted in the interim. Page Torres, DT * RootScott MD - 05/25/2014 6:21 AM EST Neurosurgery - Inpatient Progress Note ID: Tana Shelton, 18 y.o. female s/p removal of retained hardware, washout of infection 05/20 POD 5 Interval Hx: -ALEKSANDRA -Neurologically stable Objective: Medications: Scheduled Meds: ??? cefTAZidime (FORTAZ) 2g vial attach to sodium chloride 0.9% 50 mL Mini-Bag Plus 2 g NlqryvengixB6R ??? baclofen 10 mg Oral Nightly ??? levonorgestrel-ethinyl estradiol 1 tablet Oral Daily ??? polyethylene glycol 17 g Oral Daily ??? sodium chloride 0.9 % 5 mL Intravenous BID ??? docusate sodium 100 mg Oral BID ??? acetaminophen 15 mg/kg/dose Oral Q6H ??? diaZEPam 5 mg Oral BID Continuous Infusions: ??? sodium chloride 0.9% with potassium chloride 20 mEq 50 mL/hr (05/24/145) PRN Meds:diphenhydrAMINE, acetaminophen, metoclopramide, ondansetron, sodium chloride [...] anticoagulation - GI PPx - ID c/s Wai Russ MD - 05/24/2014 5:00 PM EST Follow-up [...] Discussed with Pedi Neurosurgery associate provider. 25' M.Yusuf Crabtree MD * Isra Perez RN - 05/24/2014 1:46 PM EST Patient Name: Tana Shelton Patient Age: 18 y.o. Birthdate: 1995 Admit date: 05/20/2014 Attending Physician: Freddy Burciaga MD Office of Care Management Farhana Perez RN Pager: [phone] Clinical Lock Technician Home IV Antibiotic Therapy Referral Note. Report received from NeuroSurgery Team that patient will require continued home IV antibiotic therapy after discharge from the hospital. Met with patient/family to discuss vendor and visiting nurse choices for home IV antibiotic therapy. Reviewed Home Infusion Vendors and Home Health Agencies that serve patient???s address and accept patient???s insurance. Home Health Agency: Patient requested referral to [facility]. PHONE: [phone] FAX: [phone]. Referrals sent via edischarge. Home Infusion Vendor: Patient requested referral to [place], [place] [phone] or Fax: . Referrals sent via edischarge. [...] 0.9% 50 mL Mini-Bag Plus 2 g ExuirvlciseV8F ??? baclofen 10 mg Oral Nightly ??? levonorgestrel-ethinyl estradiol 1 tablet Oral Daily ??? polyethylene glycol 17 g Oral Daily ??? sodium chloride 0.9 % 5 mL Intravenous BID ??? docusate sodium 100 mg Oral BID ??? acetaminophen 15 mg/kg/dose Oral Q6H ??? diaZEPam 5 mg Oral BID Continuous Infusions: ??? sodium chloride 0.9% with potassium chloride 20 mEq 50 mL/hr (05/23/141851) PRN Meds:diphenhydrAMINE, acetaminophen, metoclopramide, ondansetron, sodium chloride [...] 0.9% 50 mL Mini-Bag Plus 2 g LapimmehvgxG6Q ??? baclofen 10 mg Oral Nightly ??? [...] Intake/Output Summary (Last 24 hours) at 05/23/14 0627 Last data filed at 05/23/14 0500 Gross [...] - GI PPx - ID c/s Lesly Broosk RN - 05/22/2014 1:07 PM EST Office of Care Management Clinical Lock Technician Patient Name: Tana Shelton : 1995, 18 [...] None on File (x) HEALTH /PRESCRIPTION COVERAGE: [place] [facility] CURRENT HOME/COMMUNITY SERVICES/EQUIPMENT: DME: [facility] bed, wheelchair, tomasa lift, shower chair. Home Health Agency: [facility] PRIMARY CARE PHYSICIAN: NAINA LINDSEY MD [phone] POTENTIAL DISCHARGE NEEDS: Resume vna visits. Mother stated that she has [facility] - RN and Aide currently. Waiting to confirm this and pt needs. Might need home IV antibx. TRANSPORTATION @ D/C: family PLAN: CRC will continue to monitor progress, follow for continuity of care and assist with discharge planning while hospitalized Lesly Jesus RN Office of Care Management Clinical Lock Technician Covering for Farhana Chris [phone] Pager [phone] * Yandy Dasilva, PharmD - 05/22/2014 9:46 AM EST Clinical Pharmacist Note-Vanc Tana S Dirk [id number] 1995 Tana Barlowrd is a 18 y.o. [...] have. Alternately, during off-hours you may call [phone] to contact a pharmacist. Yandy Dasilva PHARMBenjamin Pager [phone] * Freddy Burciaga MD - 05/22/2014 6:59 [...] AND Vancomycin Level - MAR Order Reminder, oxyCODONE Vitals: Temp: [36.8 ??C [...] Clinically does not seem to be of BULLARD MACHINE OPERATOR origin. Continue triple antibiotics. ID consult. Cultures negative so far - please note that patient did receive Vancomycin in ED prior to OR wound cultures. There was obviously purulent material from the lumbar wound, so would favor empiric treatment even if cultures remain negative. Travis Burciaga MD Neurosurgery * Anurag Bradley RN - 05/21/2014 12:38 PM EST Report given to Diana RN Peds. Transferred to [place] [address] with transport services, RN + family members. Please call Anurag ICU-RN at [phone] with regards to any questions post transfer. [...] mcL Appearance UA Hazy (*) Clear Spec [place] UA 1.026 1.002 - 1.030 Color UA [...] TANA SHELTON Ordered By: Freddy BURCIAGA MR#: [id number] LOC: OR /Sex: 1995 (18 years), Female PROCEDURE: Tissue Culture SOURCE: Back COLLECTED: 05/20/2014 20:20 FREE TEXT SOURCE: Lumbar Wound Culture STARTED: 05/20/2014 22:13 STAINS / PREPARATIONS Gram Stain Report Verified:05/20/2014 22:28 Few White Blood Cells seen No microorganisms seen. TISSUE CULTURE Result Value Ref Range Tissue Culture Value: Patient Name: TANA SHELTON Ordered By: EVITAFreddy IRENE MR#: [id number] LOC: OR /Sex: 1995 (18 years), Female [...] II initiated 0040: Report given to Jenn ADMITTING COORDINATOR info reviewed/questions answered, pt ready for transfer [...] to the planned procedure. Hand Hygiene: The carpenter assistant installer did perform hand hygiene prior to line insertion. Catheter type: PICC Lot number: [id number] Procedure Technique: Skin was prepped with chlorhexidine. [...] Angel RN - 05/26/2014 6:46 PM EST 1830-Neuro service notified to reconcil orders Stated he [...] documentation. Belkis Louie MD 05/20/14 1908 * Ryann Feliz RN - 05/20/2014 7:05 PM EST LATE NOTE ENTERED: Bedside Report given to EUNICE Bowman * Ryann Feliz RN - 05/20/2014 6:15 PM EST Pt noted to have bilateral spasm of lower extremities Valium ordered by * Lilli Esquivel - 05/20/2014 5:17 PM EST Name: Tana [...] warm and was flushed. They called the conditioning yard supervisor neurosurgeon, who advised that they come to [...] FEMORAL HEAD, BILATERAL performed by YAS OLIVER [facility] MAIN OR ??? Apply of hip casts, two legs 08/15/2010 CAST APPLICATION, HIP SPICA, BOTH LEGS performed by YAS OLIVER at [facility] MAIN OR ??? Removal deep implant 08/15/2010 REMOVAL IMPLANT, DEEP, BRUNO performed by YAS OLIVER at [facility] MAIN OR ??? Osteotomy femur shaft/supracondy 08/15/2010 ??OSTEOTOMY, FEMUR SHAFT OR SUPRACONDYLAR W/O FIXATION performed by YAS OLIVER at [facility] MAIN OR ??? Remove spinal canal catheter N/A 05/11/2014 REMOVAL OF INTRATHECAL OR EPIDURAL CATHETER performed by Jamaal Samuel MD at [facility] MAIN OR ??? Remove infusn device/pump N/A 05/11/2014 REMOVAL OF SPINE INFUSION PUMP performed by Jamaal Samuel MD at [facility] MAIN OR Medications: No current facility-administered medications [...] stepfather Tobacco exposure:No Day care/year in school: [employer] Physical Exam: Vitals: Patient Vitals for the [...] - - 118 12 100 % - 05/20/149 - - - - 12 100 % - 05/20/14 222 125/88 mmHg 35.9 ??C (96.6 ??F) Temporal [...] mcL Appearance UA Hazy (*) Clear Spec [place] UA 1.026 1.002 - 1.030 Color UA [...] 05/21/14 0127 Lilli Esquivel MD Resident 05/21/14 1045 Associated attestation - Belkis Louie MD - [...] and/or organ supporting interventions, and documentation. * Ryann Feliz RN - 05/20/2014 5:15 PM EST LATE NOTE ENTERED: Dr. Louie made aware of The only peripheral IV is a 24g into left hand. Also made MD aware that pt has bilateral upper extremity contractions which inhibits attempt for antecubitalIV insertion. PLAN: MD to place external Jugular IV insertion for fluid resuscitation. Mother verbalized understanding. * Ryann Feliz RN - 05/20/2014 5:00 PM EST [...] intrathecal baclofen pump in 2007 at the [facility]. Mother feels that the pump has [...] Size requested: twin bed Vendor Name/Contact information: [employer] New (Edit) Referral for Outpatient Antibiotics Routine, Hospital Performed Vendor / contact information: [facility] Patient location post discharge: home Service requested: IV abx Start date: 05/26/2014 Responsible MD post discharge contact info: PCP New (Edit) Referral to Home Health - at DISCHARGE Routine, Clinic Performed Agency name and contact information: [facility] Patient location post discharge: home What services are requested: Registered Nurse, Home Health Aide, Physical Therapy, Occupational Therapy Start date: 06/06/2014 Responsible MD post discharge contact info: PCP PATIENT'S LOCATION: Tana Shelton [address] [place] [phone] (home) In discussion with the attending physician, it is certified that this patient is under their care and that they, or a Nurse Practitioner,Clinical Nurse specialist or Physician Pharmacy Helper who is working directly with them, had [...] Continue with therapies OT: Continue with therapies DIRECTOR BIOLOGY: Continue support HOME HEALTH CARE AGENCY: [facility] PHONE: [phone] FAX: [phone] Start of care: 05/26/14 Please note that any additional orders needs or changes will need to be obtained from this patient's PCP: MD Coby BRAGG [address] / [place] [address] All VNA agencies which cover the area of patient's residence have been reviewed, either verbally or in writing, and patient/family have chosen the home health care agency noted Emergency contact: After hours and weekends, call the [facility] proofing machine operator at and ask them to page the neurosurgery resident conditioning yard supervisor. * Plan of Care - Margot Monzon RN - 06/02/2014 4:08 AM EST Problem: General Plan of Care Goal: Plan of Care Review Outcome: Ongoing (Interventions Implemented as Appropriate) 06/01/14 0622 06/01/14 1707 Plan of Care Review Plan of [...] every other hourbetween 1999 and 08. CPG GOAL OUTCOME EVALUATION: Goal: [...] (45 and higher) -- -- 05/31/14 1542 06/01/14199906/02/1419 Musculoskeletal Interventions Activity/Level of Assistance -- -- [...] OTHER [place] Fall Risk -- -- -- 06/02/14318 Musculoskeletal Interventions Activity/Level of Assistance -- Positioning [...] Control Outcome: Ongoing (Interventions Implemented as Appropriate) 06/01/14 0924 06/01/141999 Coping/Psychosocial Response Interventions Counseling calming techniques promoted;emotional [...] Outcome: Ongoing (Interventions Implemented as Appropriate) 06/01/141706 Infection, Risk/Actual (Adult, Obstetrics) Infection Prevention/Resolution/Control [...] yo. Supervision: Continuous; Moraima. Fannie at home medical director occupational health at bedside this morning ; Mom arrived [...] Outcome: Ongoing (Interventions Implemented as Appropriate) 06/01/14 0622 Plan of Care Review Plan of Care [...] for diaper changes and turning. Supervision: RN checks and moraima. Mom at bedside all shift. [...] Ongoing (Interventions Implemented as Appropriate) 05/31/14 1542 Skin Integrity Impairment, Risk/Actual Personal Related Risk [...] yo with Global developmental delay Supervision: Continuous; Moraima. Mom at bedside providing cares Surveillance: The [...] promoted;promote handwashing;rest/sleep promoted Goal: Discharge Needs Assessment 05/31/14 154 Discharge Needs Assessment Concerns to be Addressed no discharge needs identified Problem: Skin Integrity Impairment, Risk/Actual (Adult, Obstetrics) Goal: Identify Signs and Symptoms and Related Risk Factors Signs and symptoms and related risk factors are identified upon initiation of Human Response Clinical Practice Guideline (CPG) 05/31/14 154 Skin Integrity Impairment, Risk/Actual Personal [...] Pt. Tolerated OT well and participated with TRICIA GARNICA. PLAN MOVING FORWARD: Continue to monitor pain, neuro, and administer antibiotics as scheduled. INDIVIDUALIZED FALL PREVENTION: Assistance: full Supervision: full Surveillance: full CPG GOAL OUTCOME EVALUATION: * Plan of Care - Pamella Graves Kesha - 05/30/2014 2:40 PM EST Problem: Infection, [...] antibiotics. Tolerated OT well and performed AROM prema GARNICA. Turned and repositioned Q 2h, skin intact, [...] Outcome: Ongoing (Interventions Implemented as Appropriate) 05/29/14 0603 Plan of Care Review Plan of Care [...] every other hourbetween 1999 and 799. CPG OUTCOME EVALUATION: Making progress towards goals [...] High (45 and higher) -- -- 05/29/14 0800 05/29/14 0900 Musculoskeletal Interventions Activity/Level of Assistance -- [...] (Interventions Implemented as Appropriate) 05/22/14 0634 05/26/14 17005/27/14 1220 Discharge Needs Assessment Concerns to be [...] (Interventions Implemented as Appropriate) 05/26/14170405/28/14 0506 05/29/14 0603 Skin Integrity Impairment, Risk/Actual Personal Related Risk [...] (CPG) Outcome: Ongoing (Interventions Implemented as Appropriate) 05/26/14170405/29/14 06 Infection, Risk/Actual Personal Related Risk Factors [...] (Interventions Implemented as Appropriate) 05/25/14 0527 05/26/14 5795 Plan of Care Review Plan of Care [...] (Interventions Implemented as Appropriate) 05/22/14 0634 05/26/14 17005/27/14 1220 Discharge Needs Assessment Concerns to be [...] Ongoing (Interventions Implemented as Appropriate) 05/26/14170405/28/14 0506 Infection, Risk/Actual Personal Related Risk Factors [...] AM EST Clinical Pharmacist Note-Vancomycin Tana Shelton [id number] 1995 Tana Shelton is a 18 y.o. [...] have. Alternately, during off-hours you may call [phone] to contact a pharmacist. Elmer Tobin, [place] Pager [phone] * Plan of Care - Leana Hicks [...] outcomes. Outcome: Ongoing (Interventions Implemented as Appropriate) 05/27/14758 Skin Integrity Impairment, Risk/Actual (Adult, Obstetrics) Skin Integrity/Wound Healing making progress toward outcome Problem: Infection, Risk/Actual (Adult, Obstetrics) Goal: Identify Signs and Symptoms and Related Risk Factors Signs and symptoms and related risk factors are identified upon initiation of Human Response Clinical Practice Guideline (CPG) Outcome: Ongoing (Interventions Implemented as Appropriate) 05/21/1454805/26/141704 Infection, Risk/Actual Personal Related Risk Factors (Infection, [...] Outcome: Ongoing (Interventions Implemented as Appropriate) 05/27/14 075 Infection, Risk/Actual (Adult, Obstetrics) Infection Prevention/Resolution/Control making [...] Review Outcome: Ongoing (Interventions Implemented as Appropriate) 05/25/1452605/26/14 1705 Plan of Care Review Plan of [...] (Interventions Implemented as Appropriate) 05/22/14 0634 05/26/14 170 Discharge Needs Assessment Concerns to be Addressed [...] (CPG) Outcome: Ongoing (Interventions Implemented as Appropriate) 05/26/141704 Skin Integrity Impairment, Risk/Actual Personal Related [...] (Interventions Implemented as Appropriate) 05/21/14 0549 05/26/14 170 Infection, Risk/Actual Personal Related Risk Factors (Infection, Risk/Actual) -- malnutrition;stress Environmental Related Risk Factors (Infection, Risk/Actual) -- healthcare- associated;hospital acquired (nosocomial) Physiological Related Risk Factors (Infection, Risk/Actual) -- chronic illness;implanted device Treatment Related Related Risk Factors (Infection, Risk/Actual) invasive device/lines/tubes -- Goal: Infection Prevention/Resolution/Control Patient will demonstrate the desired outcomes. Outcome: Ongoing (Interventions Implemented as Appropriate) 05/27/14 3469 Infection, Risk/Actual (Adult, Obstetrics) Infection Prevention/Resolution/Control making progress toward outcome Problem: Fall/Trauma/Injury Risk (Pediatric) Goal: Identify Signs and Symptoms and Related Risk Factors Signs and symptoms and related risk factors are identified upon initiation of Human Response Clinical Practice Guideline (CPG) Outcome: Outcome (s) achieved Date Met: 05/27/14 05/22/14202905/25/14 626 Fall/Trauma/Injury Risk Personal Related Risk Factors (Fall/Trauma/Injury [...] Precautions/Fall Reduction environmental modification;family at bedside;low bed [place] Fall Risk History of Falling -- Secondary [...] outcomes. Outcome: Ongoing (Interventions Implemented as Appropriate) 05/26/141704 Skin Integrity Impairment, Risk/Actual (Adult, Obstetrics) Skin Integrity/Wound Healing unable to achieve outcome Problem: Infection, Risk/Actual (Adult, Obstetrics) Goal: Identify Signs and Symptoms and Related Risk Factors Signs and symptoms and related risk factors are identified upon initiation of Human Response Clinical Practice Guideline (CPG) Outcome: Ongoing (Interventions Implemented as Appropriate) 05/26/141704 Infection, Risk/Actual Personal Related Risk Factors (Infection, Risk/Actual) malnutrition;stress Environmental Related Risk Factors (Infection, Risk/Actual) healthcare- associated;hospital acquired(nosocomial) Physiological Related Risk Factors (Infection, Risk/Actual) chronic illness;implanted device Signs and Symptoms (Infection, Risk/Actual) purulent drainage Goal: Infection Prevention/Resolution/Control Patient will demonstrate the desired outcomes. Outcome: Ongoing (Interventions Implemented as Appropriate) 05/26/141704 Infection, Risk/Actual (Adult, Obstetrics) Infection Prevention/Resolution/Control unable to achieve outcome * Op Note - Freddy Burciaga MD - 05/26/2014 4:52 PM EST [facility] [place] Patient Name: Tana Shelton : [id number] MR#: [id number] Case Date: 05/26/2014 Surgeon: Surgeon(s) and Role: [...] every other hourbetween 1999 and 08. CPG GOAL OUTCOME EVALUATION: Goal: [...] (Interventions Implemented as Appropriate) 05/22/14 0634 05/24/14 5754 Discharge Needs Assessment Concerns to be Addressed [...] risk factors * Plan of Care - Doe Rios RN - 05/25/2014 5:50 PM EST [...] every other hourbetween 1999 and 799. CPG OUTCOME EVALUATION: Making progress towards goals. [...] Interventions Safety Precautions/Fall Reduction -- -- -- 05/25/14899 Musculoskeletal Interventions Activity/Level of Assistance bed rest [...] (Interventions Implemented as Appropriate) 05/22/14 0634 05/24/14 1454 Discharge Needs Assessment Concerns to be [...] Health Knowledge, Opportunity for Enhanced (Adult, NICU, [place], Obstetrics, Pediatric) Goal: Identify Signs and Symptoms and Related Risk Factors Signs and symptoms and related risk factors are identified upon initiation of Human Response Clinical Practice Guideline (CPG) Outcome: Ongoing (Interventions Implemented as Appropriate) * Plan of Care - Carisa Godwin RN - 05/25/2014 8:02 AM EST Problem: Health Knowledge, Opportunity for Enhanced (Adult, NICU, [place], Obstetrics, Pediatric) Goal: Knowledgeable about Health Subject/Topic Patient will demonstrate the desired outcomes. Outcome: Outcome (s) achieved Date Met: 05/25/14 05/25/14 0802 Health Knowledge, Opportunity for Enhanced (Adult, NICU, [place], Obstetrics, Pediatric) Knowledgeable about Health Subject/Topic achieves outcome * Plan of Care - Ольга Flores RN - 05/25/2014 5:46 AM EST Problem: General Plan of Care Goal: Plan of Care Review Outcome: Ongoing (Interventions Implemented as Appropriate) 05/25/14 0527 Plan of Care Review Plan of Care [...] Goal: Fall Prevention-Safe Patient Handling 05/21/14 0800 05/22/14 19505/24/141999 Musculoskeletal Interventions Activity/Level of Assistance -- bed [...] at bedside;lighting adjusted for task/safety;low bed;environmental modification 05/25/14 0535 Musculoskeletal Interventions Activity/Level of Assistance -- Self-Care [...] (Interventions Implemented as Appropriate) 05/22/14 0634 05/24/14 1454 Discharge Needs Assessment Concerns to be [...] Outcome: Ongoing (Interventions Implemented as Appropriate) 05/24/14 0439 Plan of Care Review Plan of Care [...] FEMORAL HEAD, BILATERAL performed by YAS OLIVER [facility] OR ??? Apply of hip casts, two legs 08/15/2010 CAST APPLICATION, HIP SPICA, BOTH LEGS performed by YAS OLIVER at [facility] OR ??? Removal deep implant 08/15/2010 REMOVAL IMPLANT, DEEP, BRUNO performed by YAS OLIVER at [facility] OR ??? Osteotomy femur shaft/supracondy 08/15/2010 ??OSTEOTOMY, FEMUR SHAFT OR SUPRACONDYLAR W/O FIXATION performed by YAS OLIVER at [facility] OR ??? Remove spinal canal catheter N/A 05/11/2014 REMOVAL OF INTRATHECAL OR EPIDURAL CATHETER performed by Jamaal Samuel MD at [facility] OR ??? Remove infusn device/pump N/A 05/11/2014 REMOVAL OF SPINE INFUSION PUMP performed by Jamaal Samuel MD at [facility] OR ? ? I&d, post spine, lumb/sacr/lumbosac N/A 05/20/2014 @I & D, OPEN, DEEP ABSCESS, LUMBAR, SACRAL, LUMBOSACRAL performed by Freddy Burciaga MD at [facility] OR ??? Repr, dural/csf leak, not req laminectomy N/A 05/20/2014 @REPAIR DURAL\CSF LEAK,NOT REQUIRING LAMINECTOMY performed by Freddy Burciaga MD at [facility] OR Social and Developmental History: Patient lives with her family in a single level home in [place], [place]. Pt's mother reports that their home [...] has an older sister who lives in [place] and 3 younger brothers. She likes to [...] RN and mom assist. 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 Spoke with [facility] about consultfor [...] you for this occupational therapy consult. Pager: [phone] Mary Joe OT 05/24/2014 Occupational Therapy Rehabilitation [...] FEMORAL HEAD, BILATERAL performed by YAS OLIVER [facility] OR ??? Apply of hip casts, two legs 08/15/2010 CAST APPLICATION, HIP SPICA, BOTH LEGS performed by YAS OLIVER at [facility] OR ??? Removal deep implant 08/15/2010 REMOVAL IMPLANT, DEEP, BRUNO performed by YAS OLIVER at [facility] OR ??? Osteotomy femur shaft/supracondy 08/15/2010 ??OSTEOTOMY, FEMUR SHAFT OR SUPRACONDYLAR W/O FIXATION performed by YAS OLIVER at [facility] OR ??? Remove spinal canal catheter N/A 05/11/2014 REMOVAL OF INTRATHECAL OR EPIDURAL CATHETER performed by Jamaal Samuel MD at [facility] OR ??? Remove infusn device/pump N/A 05/11/2014 REMOVAL OF SPINE INFUSION PUMP performed by Jamaal Samuel MD at [facility] OR ? ? I&d, post spine, lumb/sacr/lumbosac N/A 05/20/2014 @I & D, OPEN, DEEP ABSCESS, LUMBAR, SACRAL, LUMBOSACRAL performed by Freddy Burciaga MD at [facility] OR ??? Repr, dural/csf leak, not req laminectomy N/A 05/20/2014 @REPAIR DURAL\CSF LEAK,NOT REQUIRING LAMINECTOMY performed by Freddy Burciaga MD at [facility] MAIN OR Social History: Patient lives with her family in a single story home in [place], [place]. Pt's mother reports that there is no stair requirement, and that she has all necessary equipment. 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 CPG GOAL OUTCOME EVALUATION: Making progress towards [...] of Human Response Clinical Practice Guideline (CPG) 05/22/14 2030 Fall/Trauma/Injury Risk Personal Related Risk [...] based on it's ability to penetrate the BULLARD MACHINE OPERATOR. We need todiscuss whether to pursue an [...] Ongoing (Interventions Implemented as Appropriate) 05/22/14 06 Plan of Care Review Plan of [...] Outcome: Ongoing (Interventions Implemented as Appropriate) 05/21/14 0805/22/141958 [place] Fall Risk History of Falling 0 [...] to 40 mEq. One dose of IV [id number] mEq administered per orders. Re-check of K [...] Outcome: Outcome (s) achieved Date Met: 05/22/14 05/22/14 2030 Fall/Trauma/Injury Risk (Pediatric) Absence of Trauma/Injury/Falls making [...] placement of baclofen pump in 2007 in [place]. Due to lack of efficacy the baclofen [...] and Lipase were normal. Per her daycare speech teacher, may be related to administration of oxycodone as this has been issue in the past. Cannotexclude component of baclofen withdrawal, but less likely. No current concern for acute BULLARD MACHINE OPERATOR process. - Serial exams. Ensure daily BMs [...] although it may not have the best BULLARD MACHINE OPERATOR penetration unless meninges are actually inflamed. - [...] fluid only. MD called for antiemetic and [place] tylenol. Zofran given when order receivedand med [...] PREVENTION: Assistance: Full assist, mom at bedside. dietetic aide will be coming in today to relieve mom for a period of time. Supervision: RN checks and moraima, mom at bedside all [...] Mutuality Outcome: Ongoing (Interventions Implemented as Appropriate) 05/22/14633 Individualization Patient Specific Preferences likes syringes or [...] Burciaga MD - 05/21/2014 11:53 AM EST [facility] [place] Patient Name: Tana Shelton : [id number] MR#: [id number] Case Date: 05/20/2014 - 05/21/2014 Surgeon: Surgeon(s) [...] FEMORAL HEAD, BILATERAL performed by YAS OLIVER [facility] MAIN OR ??? Apply of hip casts, two legs 08/15/2010 CAST APPLICATION, HIP SPICA, BOTH LEGS performed by YAS OLIVER at [facility] MAIN OR ??? Removal deep implant 08/15/2010 REMOVAL IMPLANT, DEEP, BRUNO performed by YAS OLIVER at [facility] MAIN OR ??? Osteotomy femur shaft/supracondy 08/15/2010 ??OSTEOTOMY, FEMUR SHAFT OR SUPRACONDYLAR W/O FIXATION performed by YAS OLIVER at [facility] MAIN OR ??? Remove spinal canal catheter N/A 05/11/2014 REMOVAL OF INTRATHECAL OR EPIDURAL CATHETER performed by Jamaal Samuel MD at [facility] MAIN OR ??? Remove infusn device/pump N/A 05/11/2014 REMOVAL OF SPINE INFUSION PUMP performed by Jamaal Samuel MD at [facility] MAIN OR No family history on file. [...] mcL Appearance UA Hazy (*) Clear Spec [place] UA 1.026 1.002 - 1.030 Color UA [...] TANA SHELTON Ordered By: Freddy BURCIAGA MR#: [id number] LOC: OR /Sex: 1995 (18 years), Female PROCEDURE: Tissue Culture SOURCE: Back COLLECTED: 05/20/2014 20:20 FREE TEXT SOURCE: Lumbar Wound Culture STARTED: 05/20/2014 22:13 STAINS / PREPARATIONS Gram Stain Report Verified:05/20/2014 22:28 Few White Blood Cells seen No microorganisms seen. TISSUE CULTURE Result Value Range Tissue Culture Value: Patient Name: TANA SHELTON Ordered By: Freddy BURCIAGA MR#: [id number] LOC: OR /Sex: 1995 (18 years), Female [...] EDT TH Visit (TeleHealth) Infect[place] [id number] Lilli Joy APRN [facility] [place] [address] 11/30/2023 12:50 PM EDT Appointment [place] [phone] 12/03/2023 12:30 PM EDT Office Visit [place] [phone] Hollie Ambriz MD [facility] [place] [address] Pending Results Name Type Priority Associated Diagnoses [...] TISSUE CULTURE Routine 05/26/2014 5:30 PM EST ABO/RH TYPING STAT 05/26/2014 12:40 PM EST [...] REQUIRING LAMINECTOMY Routine 05/20/2014 10:22 PM EST LICENSING ENGINEER CULTURE Routine 5 10:01 PM EST ANAEROBIC [...] Metabolic Panel (non-fasting) (06/02/2014 5:55 AM EST) Glucose Lvl 75 60 - 199 mg/dL CERNER MILLENNIUM Comment:Diabetes: >=200 mg/d L plus symptoms BUN 5(L) 8 - 18 mg/dL CERNER MILLENNIUM Creatinine 0.30(L) 0.70 - 1.20 mg/dL CERNER MILLENNIUM Comment: Please note that the pediatric reference intervals supplied above were not validated [place] [facility] Results from pediatric patients should be interpreted [...] the following links into your internet browser. [email or web address] Blood specimen (specimen) 06/02/2014 5:55 AM EST 06/02/2014 6:09 AM EST Narrative Resulting Agency Comment Spec In Lab S Alek Burciaga MD CHEMISTRY ORDERABLES Performing Organization Address [facility] Co de Phone Number [facility] * (ABNORMAL) Sedimentation rate (06/01/2014 12:40 PM EST) Sed Rate 46(H) 0 - 20 mm/hr [facility] Blood specimen (specimen) Venous Draw / Unknown 06/01/2014 12:40 PM EST 06/01/2014 12:48 PM EST Narrative Resulting Agency Comment Spec In Lab S Alek Burciaga MD HEMATOLOGY ORDERABLE S Performing Organization Address [facility] de Phone Number [facility] * High Sensitivity CRP (06/01/2014 12:40 PM EST) Pathologist [facility] CRP High Sens 15.4 mg/L [facility] Comment: Interpretations: 1) For accurate cardiac risk [...] ORDERABLE S CERNER MILLENNIUM * (ABNORMAL) Hemogram (06/01/2014 12:40 PM EST) [facility] WBC 7.4 4.0 - 10.0 x10(3)/mcL CERNER [...] S Alek Burciaga MD HEMATOLOGY ORDERABLE S LINDA BASHIR * (ABNORMAL) Basic Metabolic Panel (non-fasting) (06/01/2014 12:40 PM EST) [facility] Glucose Lvl 95 60 - 199 mg/dL CERNER MILLENNIUM Comment:Diabetes: >=200 mg/d L plus symptoms BUN 4(L) 8 - 18 mg/dL CERNER MILLENNIUM Creatinine 0.38(L) 0.70 - 1.20 mg/dL CERNER MILLENNIUM Comment: Please note that the pediatric reference intervals supplied above were not validated [place] [facility] Results from pediatric patients should be interpreted [...] the following links into your internet browser. [email or web address] Blood specimen (specimen) 06/01/2014 12:40 PM EST 06/01/2014 12:48 PM EST Narrative Resulting Agency Comment Spec In Lab S Alek Burciaga MD CHEMISTRY ORDERABLES CERALIN TOMASENNIUM * Differential, Automated (05/30/2014 6:50 AM EST) [...] Alek Burciaga MD HEMATOLOGY ORDERABLE S CERALIN BASHIR * (ABNORMAL) Basic Metabolic Panel (non-fasting) (05/30/2014 6:50 AM EST) Glucose Lvl 82 60 - 199 mg/dL CERNER MILLENNIUM Comment:Diabetes: >=200 mg/d L plus symptoms BUN 4(L) 8 - 18 mg/dL CERNER MILLENNIUM Creatinine 0.29(L) 0.70 - 1.20 mg/dL CERNER MILLENNIUM Comment: Please note that the pediatric reference intervals supplied above were not validated [place] [facility] Results from pediatric patients should be interpreted [...] the following links into your internet browser. [email or web address] Blood specimen (specimen) 05/30/2014 6:50 AM EST [...] ORDERABLE S CERALIN MILLENNIUM * (ABNORMAL) Hemogram (05/29/2014 7:13 AM EST) [...] MILLENNIUM * (ABNORMAL) Basic Metabolic Panel (non-fasting) (05/29/2014 7:13 AM EST) [facility] Glucose Lvl 83 60 - 199 mg/dL CERNER MILLENNIUM Comment:Diabetes: >=200 mg/d L plus symptoms BUN 5(L) 8 - 18 mg/dL CERNER MILLENNIUM Creatinine 0.31(L) 0.70 - 1.20 mg/dL CERNER MILLENNIUM Comment: Please note that the pediatric reference intervals supplied above were not validated [place] [facility] Results from pediatric patients should be interpreted [...] the following links into your internet browser. [email or web address] Blood specimen (specimen) 05/29/2014 7:13 AM EST [...] Alek Burciaga MD HEMATOLOGY ORDERABLE S CERALIN TOMASENNIUM * (ABNORMAL) Hemogram (05/28/2014 9:00 AM EST) [...] Alek Burciaga MD HEMATOLOGY ORDERABLE S CERALIN TOMASENNIUM * Vancomycin, trough (05/28/2014 9:00 AM EST) [...] MD CHEMISTRY ORDERABLES CERNER MILLENNIUM * (ABNORMAL) Basic Metabolic Panel (non-fasting) (05/28/2014 9:00 AM EST) Glucose Lvl 121 60 - 199 mg/dL CERNER MILLENNIUM Comment:Diabetes: >=200 mg/d L plus symptoms BUN 4(L) 8 - 18 mg/dL CERNER MILLENNIUM Creatinine 0.29(L) 0.70 - 1.20 mg/dL CERNER MILLENNIUM Comment: Please note that the pediatric reference intervals supplied above were not validated [place] [facility] Results from pediatric patients should be interpreted [...] the following links into your internet browser. [email or web address] Blood specimen (specimen) 05/28/2014 9:00 AM EST 05/28/2014 9:23 AM EST Narrative Resulting Agency Comment Spec In Lab S Alek Burciaga MD CHEMISTRY ORDERABLES CERNER MILLENNIUM * Differential, Automated (05/27/2014 5:30 AM EST) [...] MD HEMATOLOGY ORDERABLE S Performing Organization Address [facility] Co de Phone Number CERNER MILLENNIUM * (ABNORMAL) Hemogram (05/27/2014 5:30 [...] MD HEMATOLOGY ORDERABLE S Performing Organization Address City/[facility]/ZIP Co de Phone Number CERNER MILLENNIUM * (ABNORMAL) Basic Metabolic Panel (non-fasting) (05/27/2014 5:30 AM EST) Glucose Lvl 81 60 - 199 mg/dL CERNER MILLENNIUM Comment:Diabetes: >=200 mg/d L plus symptoms BUN 4(L) 8 - 18 mg/dL CERNER MILLENNIUM Creatinine 0.21(L) 0.70 - 1.20 mg/dL CERNER MILLENNIUM Comment: Please note that the pediatric reference intervals supplied above were not validated [place] [facility] Results from pediatric patients should be interpreted [...] the following links into your internet browser. [email or web address] Blood specimen (specimen) 05/27/2014 5:30 AM EST 05/27/2014 5:39 AM EST Narrative Resulting Agency Comment Spec In Lab Freddy Burciaga MD CHEMISTRY ORDERABLES CRISTANER MILLENNIUM * Anaerobic Culture (05/26/2014 5:30 PM EST) Anaerobic Culture ? Patient Name: TANA SHELTON ? Ordered By: Freddy BURCIAGA ? MR#: [id number] ?LOC: ??[place] ? /Sex: ??1995 (18 years), ? Female ? PROCEDURE: Anaerobic Culture ?SOURCE: Back ? COLLECTED: 05/26/2014 17:30 ?FREE TEXT SOURCE: Lumbar ? STARTED: 05/26/2014 17:41 ? FINAL REPORT ? Final Report ? Verified:2014 12:55 ? No anaerobic organisms isolated ? PRELIMINARY REPORT ? Preliminary Report ? Verified:2014 12:08 ? No anaerobic organisms isolated to date ? LINDA KEMPIUM Structure of back of trunk (body structure) 05/26/2014 5:30 PM EST 05/26/2014 5:41 PM EST Comment:LUMBAR Narrative Resulting Agency Comment Spec In Lab Freddy Burciaga MD MICROBIOLOGY - GENER AL ORDERABLES LINDA TOMASENNIUM * Tissue culture (05/26/2014 5:30 PM EST) Tissue Culture ? Patient Name: TANA SHELTON ? Ordered By: Freddy BURCIAGA ? MR#: [id number] ?LOC: ??[place] ? /Sex: ??1995 (18 years), [...] S ? Patient: TANA SHELTON ? MR#: [id number] ? S=Susceptible ??I=Intermediate ??R=Resistant ??NA=Not Applicable ? DDS=Dose dependent-suscept ible ??NS=Non-suscepti ble ? CERNER MILLENNIUM Structure of back of trunk (body structure) 05/26/2014 5:30 PM EST 05/26/2014 5:41 PM EST Comment:LUMBAR Narrative Resulting Agency Comment Spec In Lab S Alek Burciaga MD MICROBIOLOGY - GENER AL ORDERABLES [facility] * Anaerobic Culture (05/26/2014 5:30 PM EST) Anaerobic Culture ? Patient Name: TANA SHELTON ? Ordered By: Freddy BURCIAGA ? MR#: [id number] ?LOC: ??[place] ? /Sex: ??1995 (18 years), ? Female ? PROCEDURE: Anaerobic Culture ?SOURCE: Other ? COLLECTED: 05/26/2014 17:30 ?FREE TEXT SOURCE: Anterior Flank ? STARTED: 05/26/2014 17:41 ? FINAL REPORT ? Final Report ? Verified:2014 12:54 ? No anaerobic organisms isolated ? PRELIMINARY REPORT ? Preliminary Report ? Verified:2014 12:08 ? No anaerobic organisms isolated to date ? CRISTANER MILLENNIUM Specimen of unknown material (specimen) 05/26/2014 5:30 PM EST 05/26/2014 5:41 PM EST Comment:ANTERIOR FLANK Narrative Resulting Agency Comment Spec In Lab Freddy Burciaga MD MICROBIOLOGY - GENER AL ORDERABLES [facility] * Tissue culture (05/26/2014 5:30 PM EST) Tissue Culture ? Patient Name: TANA SHELTON ? Ordered By: Freddy BURCIAGA ? MR#: [id number] ?LOC: ??[place] ? /Sex: ??1995 (18 years), ? Female ? PROCEDURE: Tissue Culture ?SOURCE: Other ? COLLECTED: 05/26/2014 17:30 ?FREE TEXT SOURCE: Anterior Flank ? STARTED: 05/26/2014 17:41 ? STAINS / PREPARATIONS ? Gram Stain Report ? Verified:05/26/19 18:33 ? Few White Blood Cells seen ? No microorganisms seen. ? FINAL REPORT ? Final Report ? Verified:06/01/19 12:03 ? Coagulase negative Staphylococcus species isolated from broth culture. ? No growth on original plates. ? PRELIMINARY REPORT ? Preliminary Report ? Verified:05/30/19 11:35 ? Coagulase negative Staphylococcus species isolated from broth culture. ? Susceptibility testing in progress ? No growth on original plates. ? Patient: TANA SHELTON ? MR#: [id number] ? SUSCEPTIBILITY RESULTS ? Coagulase negative Staphylococcus [...] (1) ? Gentamicin is not appropriate for Payette-therapy. ? (2) ? Penicillin resistant, Nafcillin susceptible Staphylococci are resistant to ? B-lactamase labile ? Penicillins including Ampicillin and Piperacillin, but susceptible to B- ? lactamase shelbie Penicillins ? (Nafcillin), B-lactamase inhibitor combinations, first and second ? generation Cephalosporins including ? Cefazolin, and to Cefepime and Meropenem. ? [facility] Specimen of unknown material (specimen) 05/26/2014 5:30 PM EST 05/26/2014 5:41 PM EST Comment:ANTERIOR FLANK Narrative Resulting Agency Comment Spec In Lab S Alek Burciaga MD MICROBIOLOGY - GENER AL ORDERABLES [facility] * Anaerobic Culture (05/26/2014 5:30 PM EST) Anaerobic Culture ? Patient Name: TANA SHELTON ? Ordered By: Freddy BURCIAGA ? MR#: [id number] ?LOC: ??[place] ? /Sex: ??1995 (18 years), [...] Agency Comment Spec In Lab S Alek Bucriaga MD MICROBIOLOGY - GENER AL ORDERABLES [facility] * Tissue culture (05/26/2014 5:30 PM EST) Tissue Culture ? Patient Name: TANA SHELTON ? Ordered By: Freddy BURCIAGA ? MR#: [id number] ?LOC: ??[place] ? /Sex: ??1995 (18 years), [...] 07:58 ? No growth to date. ? LINDA KEMPIUM Specimen of unknown material (specimen) 05/26/2014 5:30 PM EST 05/26/2014 5:41 PM EST Comment:POSTERIOR FLANK Narrative Resulting Agency Comment Spec In Lab S Alek Burciaga MD MICROBIOLOGY - GENER AL ORDERABLES [facility]DA [facility] * Antibody screen (05/26/2014 12:40 PM EST) Ab Screen Interp Negative CERALIN KEMPIUM Expires at [id number] on: [id number] CERALIN MILLENNIUM Blood specimen (specimen) 05/26/2014 12:40 PM EST 05/26/2014 12:59 PM EST Narrative Resulting Agency Comment Spec In Lab S Alek Burciaga MD BLOOD BANK LAB ORDER MYRANDA LINDA BASHIR * ABO/Rh Typing (05/26/2014 12:40 PM EST) ABORH Type O Pos CERALIN KEMPIUM Blood specimen (specimen) 05/26/2014 12:40 PM EST 05/26/2014 12:59 PM EST Narrative Resulting Agency Comment Spec In Lab S Alek Burciaga MD BLOOD BANK LAB ORDER MYRANDA Performing Organization Address City/[facility] Co de Phone Number LINDA BASHIR * [...] prior fragment retrieval. S Alek Burciaga MD [facility] [place] ORDER[place]LES * CT lumbar spine reconstruction [...] areas of greatestartifact. S Alek Burciaga MD IM CT ORDERABLES * Differential, Automated (05/26/2014 4:15 [...] * (ABNORMAL) Hemogram (05/26/2014 4:15 AM EST) Pathologist [facility] [place] WBC 7.4 4.0 - 10.0 x10(3)/mcL CERNER [...] MD HEMATOLOGY ORDERABLE S Performing Organization Address City/[facility]/ZIP Co de Phone Number CERALIN TOMASENNIUM * (ABNORMAL) Basic Metabolic Panel (non-fasting) (05/26/2014 4:15 AM EST) Pathologist [facility] [place] Glucose Lvl 88 60 - 199 mg/dL CERNER MILLENNIUM Comment:Diabetes: >=200 mg/d L plus symptoms BUN 6(L) 8 - 18 mg/dL CERNER MILLENNIUM Creatinine 0.28(L) 0.70 - 1.20 mg/dL CERNER MILLENNIUM Comment: Please note that the pediatric reference intervals supplied above were not validated [place] [facility] Results from pediatric patients should be interpreted [...] the following links into your internet browser. [email or web address] Blood specimen (specimen) 05/26/2014 4:15 AM EST 05/26/2014 4:35 AM EST Narrative Resulting Agency Comment Spec In Lab S Alek Burciaga MD CHEMISTRY ORDERABLES [facility] * Place PICC Line: Contact Vascular Access Page [phone] (05/25/2014 4:01 PM EST) Narrative Iron Aden RN - 05/25/2014 4:01 PM EST Iron Aden RN ? 05/25/2014 ??4:01 PM PICC/Midline Insertion Procedure [...] to the planned procedure. Hand Hygiene: The carpenter assistant installer did perform hand hygiene prior to line insertion. Catheter type: PICC Lot number: [id number] Procedure Technique: Skin was prepped with chlorhexidine. [...] catheter placement. A 4 Fr. single lumen [employer] Power catheter was placed into the right [...] spine. This report was reviewed by Andrade Rebolleod MD at 05/25/2014 4:05 PM Film and interpretation reviewed by the attending Narrative 05/25/2014 4:10 PM EST EXAMINATION: MR Cspine and thoracic WO Johnny CLINICAL HISTORY: wound infection s/p harware removel. ? intrathecal inf, focal. COMPARISON: Scoliosis radiographs from 12/16/2011 FINDINGS: Bag Bundler views demonstrate severe rightward scoliotic deformity centered [...] No gross collections in the cervical spine. Bag Bundler coronal image 8 of series 8 demonstrates extensive supratentorial parenchymal loss in the left hemisphere not completely characterized on this exam. Thoracic spine: Metallic artifact obscures much of the cord and posterior elements. No aggressive appearing marrow lesions are seen in the visualized thoracic spine. Visualized Disc spaces are normal. Procedure Note Andrade Roth MD - 05/25/2014 EXAMINATION: MR Gideonine and thoracic WO Johnny CLINICAL HISTORY: wound infection s/p harware removel. ? intrathecal inf,focal. COMPARISON: Scoliosis radiographs from 12/16/2011 FINDINGS: Bag Bundler views demonstrate severe rightward scoliotic deformity centered [...] abnormalities. No grosscollections in the cervical spine. Bag Bundler coronal image 8 of series 8 demonstrates [...] Film and interpretation reviewed by the attending S Alek Burciaga MD IMG MRI ORDERABLES * MRI thoracic spine without contrast (05/25/2014 1:26 PM EST) Anatomical Region Laterality Modality T-spine Magnetic Resonan ce 05/25/2014 1:26 PM EST Narrative 05/25/2014 4:10 PM EST See accession #[id number] for dictation of this study. This report was reviewed by Andrade Rebolledo MD at 05/25/2014 4:05 PM Film and interpretation reviewed by the attending Procedure Note Andrade Roth MD - 05/25/2014 See accession #[id number] for dictation of this study. This report was reviewed by Andrade Rebolledo MD at 05/25/2014 4:05 PM Film and interpretation reviewed by the attending Alek Sinha [employer] CONSULTANT IMG MRI ORDERABLES * Differential, Automated (05/25/2014 5:00 [...] ORDERABLE S CERNER MILLENNIUM * (ABNORMAL) Hemogram (05/25/2014 5:00 AM EST) [facility] WBC 7.1 4.0 - 10.0 x10(3)/mcL CERNER [...] S Alek Burciaga MD HEMATOLOGY ORDERABLE S [facility] * (ABNORMAL) Basic Metabolic Panel (non-fasting) (05/25/2014 5:00 AM EST) [facility] Glucose Lvl 87 60 - 199 mg/dL CERNER MILLENNIUM Comment:Diabetes: >=200 mg/d L plus symptoms BUN 6(L) 8 - 18 mg/dL CERNER MILLENNIUM Creatinine 0.27(L) 0.70 - 1.20 mg/dL CERNER MILLENNIUM Comment: Please note that the pediatric reference intervals supplied above were not [place] [facility] Results from pediatric patients should be interpreted [...] the following links into your internet browser. [email or web address] Blood specimen (specimen) 05/25/2014 5:00 AM EST 05/25/2014 5:19 AM EST Narrative Resulting Agency Comment Spec In Lab S Alek Burciaga MD CHEMISTRY ORDERABLES CERALIN MILLENNIUM * Differential, Automated (05/24/2014 12:42 PM [...] 8 - 18 mg/dL CERNER MILLENNIUM Comment:result rechecked-mkf Creatinine 0.39(L) 0.70 - 1.20 mg/dL CERNER MILLENNIUM Comment: Please note that the pediatric reference intervals supplied above were not validated [place] [facility] Results from pediatric patients should be interpreted [...] the following links into your internet browser. [email or web address] Blood specimen (specimen) 05/24/2014 12:42 PM EST 05/24/2014 12:42 PM EST Narrative Resulting Agency Comment Spec In Lab Freddy Burciaga MD CHEMISTRY ORDERABLES Performing Organization Address [facility] de Phone Number LINDA BASHIR * Vancomycin, trough (05/24/2014 12:29 PM EST) [...] Burciaga MD CHEMISTRY ORDERABLES Performing Organization Address [facility] de Phone Number LINDA BASHIR * (ABNORMAL) Electrolytes panel (05/23/2014 12:30 AM [...] Burciaga MD CHEMISTRY ORDERABLES Performing Organization Address [facility] Co de Phone Number CERNER MILLENNIUM * (ABNORMAL) [...] Burciaga MD CHEMISTRY ORDERABLES Performing Organization Address [facility] Co de Phone Number CERNER MILLENNIUM * (ABNORMAL) Phosphorus (05/22/2014 12:45 PM EST) Phosphorus 2.2(L) 2.5 - 4.5 mg/dL CERNER MILLENNIUM Blood specimen (specimen) Venous Draw / Unknown 05/22/2014 12:45 PM EST 05/22/2014 1:03 PM EST Narrative Resulting Agency Comment Spec In Lab Lucho Smith MD CHEMISTRY ORDERABLES Performing Organization Address [facility] Co de Phone Number CERNER MILLENNIUM * Magnesium (05/22/2014 12:45 PM EST) Magnesium 0.69 0.69 - 1.07 mmol/L CERNER MILLENNIUM Blood specimen (specimen) Venous Draw / Unknown 05/22/2014 12:45 PM EST 05/22/2014 1:03 PM EST Narrative Resulting Agency Comment Spec In Lab Lucho Smith MD CHEMISTRY ORDERABLES Performing Organization Address [facility] de Phone Number CERALIN KEMPIUM * Lipase (05/22/2014 12:45 PM EST) Lipase 44 0 - 60 unit/L CERNER MILLENNIUM Blood specimen (specimen) 05/22/2014 12:45 PM EST 05/22/2014 1:03 PM EST Narrative Resulting Agency Comment Spec In Lab Lucho Smith MD CHEMISTRY ORDERABLES Performing Organization Address [facility] de Phone Number [facility] VIRID[facility]NA[facility]UM * Amylase (05/22/2014 12:45 PM EST) Amylase 89 28 - 100 unit/L CERNER MILLENNIUM Blood specimen (specimen) 05/22/2014 12:45 PM EST 05/22/2014 1:03 PM EST Narrative Resulting Agency Comment Spec In Lab Lucho Smith MD CHEMISTRY ORDERABLES Performing Organization Address [facility] de Phone Number CERALIN TOMASENNIUM * (ABNORMAL) Comprehensive metabolic panel (non-fasting) (05/22/2014 12:45 PM EST) Glucose Lvl 81 60 - 199 mg/dL CERNER MILLENNIUM Comment:Diabetes: >=200 mg/d L plus symptoms BUN 2(L) 8 - 18 mg/dL CERNER MILLENNIUM Creatinine 0.31(L) 0.70 - 1.20 mg/dL CERNER MILLENNIUM Comment: Please note that the pediatric reference intervals supplied above were not validated [place] [facility] Results from pediatric patients should be interpreted [...] the following links into your internet browser. [email or web address] Blood specimen (specimen) 05/22/2014 12:45 PM EST [...] MILLENNIUM MCV 86.8 79.0 - 94.0 fL CERNER MILLENNIUM MCH 28.8 26.6 - 32.2 pg CERNER MILLENNIUM MCHC 33.1 32.0 - 36.5 gm/dL CERNER MILLENNIUM Platelets 342 145 - 370 x10(3)/mcL CERNER MILLENNIUM RDWSD 45.2 35.0 - 46.0 fL CERNER MILLENNIUM RDWCV 14.2 10.9 - 14.4 % CERNER MILLENNIUM MPV 10.7 9.0 - 12.0 fL CERNER MILLENNIUM Blood specimen (specimen) 05/22/2014 6:10 AM EST 05/22/2014 6:22 AM EST Narrative Resulting Agency Comment Spec In Lab Freddy Alek Burciaga MD HEMATOLOGY ORDERABLE S Performing Organization Address [facility] de Phone Number LINDA [facility]ITAL[facility]APHA[facility] * Vancomycin, trough (05/22/2014 6:10 AM EST) Vanc Trough 6.1 mg/L CERNER MILLENNIUM Comment: Therapeutic range for [...] Burciaga MD CHEMISTRY ORDERABLES Performing Organization Address [facility] de Phone Number [facility] * (ABNORMAL) Basic Metabolic Panel (non-fasting) (05/22/2014 6:10 AM EST) Glucose Lvl 86 60 - 199 mg/dL CERNER MILLENNIUM Comment:Diabetes: >=200 mg/d L plus symptoms BUN 3(L) 8 - 18 mg/dL CERNER MILLENNIUM Creatinine 0.27(L) 0.70 - 1.20 mg/dL CERNER MILLENNIUM Comment: Please note that the pediatric reference intervals supplied above were not validated [place] [facility] Results from pediatric patients should be interpreted [...] the following links into your internet browser. [email or web address] Blood specimen (specimen) 05/22/2014 6:10 AM EST [...] intervals supplied above were not validated [place] [facility] Results from pediatric patients should be interpreted [...] the following links into your internet browser. [email or web address] Blood specimen (specimen) 05/21/2014 4:23 AM EST 05/21/2014 4:38 AM EST Narrative Resulting Agency Comment Spec In Lab Freddy Burciaga MD CHEMISTRY ORDERABLES [facility] * Trace Evidence Technician Culture (05/20/2014 10:01 PM EST) Trace Evidence Technician Culture ? Patient Name: TANA SHELTON ? Ordered By: Freddy BURCIAGA ? MR#: [id number] ?LOC: ??[place] ? /Sex: ??1995 (18 years), ? Female ? PROCEDURE: Trace Evidence Technician Culture ?SOURCE: Other ? COLLECTED: 05/20/2014 22:01 ? BODY SITE: Other ? STARTED: 05/20/2014 22:22 ?FREE TEXT SOURCE: retained baclafin pump tubing ? FINAL REPORT ? Final Report ? Verified:05/24/2014 10:28 ? Pseudomonas aeruginosa isolated ? Susceptibilities previously reported ? PRELIMINARY REPORT ? Preliminary Report ? Verified:05/23/2014 11:27 ? Pseudomonas aeruginosa isolated ? Susceptibilities previously reported ? LINDA BASHIR Specimen of unknown material (specimen) TOPOGRAPHY UNKNOWN / Unknown 05/20/2014 10:01 PM EST 05/20/2014 10:21 PM EST Comment:RETAINED BACLAFIN PU MP TUBING Narrative Resulting Agency Comment Spec In Lab Freddy Burciaga MD MICROBIOLOGY - GENER AL ORDERABLES LINDA BASHIR * Anaerobic Culture (05/20/2014 9:25 PM EST) Anaerobic Culture ? Patient Name: TANA SHELTON ? Ordered By: Freddy BURCIAGA ? MR#: [id number] ?LOC: ??[place] ? /Sex: ??1995 (18 years), [...] ORDERABLES LINDA BASHIR * Tissue culture (05/20/2014 9:25 PM EST) Tissue Culture ? Patient Name: TANA SHELTON ? Ordered By: Freddy BURCIAGA ? MR#: [id number] ?LOC: ??[place] ? /Sex: ??1995 (18 years), [...] ? Patient: TANA SHELTON S ? MR#: [id number] ? S=Susceptible ??I=Intermediate ??R=Resistant ??NA=Not Applicable ? DDS=Dose dependent-suscept ible ??NS=Non-suscepti ble ? CRISTANER MILLENNIUM Structure of back of trunk (body structure) 05/20/2014 9:25 PM EST 05/20/2014 10:12 PM EST Comment:LUMBAR WOUND CULTURE #2 Narrative Resulting Agency Comment Spec In Lab Freddy Burciaga MD MICROBIOLOGY - GENER AL ORDERABLES LINDA BASHIR * Anaerobic Culture (05/20/2014 8:20 PM EST) Anaerobic Culture ? Patient Name: TANA SHELTON ? Ordered By: Freddy BURCIAGA ? MR#: [id number] ?LOC: ??[place] ? /Sex: ??1995 (18 years), [...] ? Ordered By: Freddy BURCIAGA ? MR#: [id number] ?LOC: ??[place] ? /Sex: ??1995 (18 years), [...] ? Ordered By: BELKIS LOUIE ? MR#: [id number] ?LOC: ??[place] ? /Sex: ??1995 (18 years), ? Female ? PROCEDURE: Urine Culture ?SOURCE: U SCat ? COLLECTED: 05/20/2014 18:46 ? STARTED: 05/20/2014 19:29 ? FINAL REPORT ? Final Report ? Verified:2014 09:17 ? No growth (Less than 100 cfu/ml). ? PRELIMINARY REPORT ? Preliminary Report ? Verified:2014 15:02 ? No growth to date. ? LINDA BASHIR Urine specimen obtained via straight catheter (specimen) 05/20/2014 6:46 PM EST 05/20/2014 7:29 PM EST Narrative Resulting Agency Comment Spec In Lab Belkis Louie MD MICROBIOLOGY - GENER AL ORDERABLES [facility] * (ABNORMAL) Urinalysis with microscopic (05/20/2014 6:46 [...] Appearance UA Hazy(A) Clear CERNER MILLENNIUM Spec [place] UA 1.026 1.002 - 1.030 CERNER MILLENNIUM [...] In Lab Belkis Louie MD URINE ORDERABLES [facility] * L-Lactate2 Whole Blood (05/20/2014 6:17 PM EST) Lactate WB 1.6 0.5 - 2.2 mmol/L CERNER MILLENNIUM Blood specimen (specimen) 05/20/2014 6:17 PM EST 05/20/2014 6:17 PM EST Belkis Louie MD CHEMISTRY ORDERABLES LINDA BASHIR * Blood culture (05/20/2014 6:00 PM EST) Blood Culture ? Patient Name: TANA SHELTON ? Ordered By: BELKIS LOUIE ? MR#: [id number] ?LOC: ??[place] ? /Sex: ??1995 (18 years), [...] days. ? LINDA BASHIR Blood specimen (specimen) 05/20/2014 6:00 PM EST 05/20/2014 7:45 PM EST Comment:LEFT EJ Narrative Resulting Agency Comment Spec In Lab Belkis Louie MD MICROBIOLOGY - BLOOD ORDERABLES LINDA KEMPIUM * Green Tube HOLD (05/20/2014 5:15 PM EST) Green Hold Sample in lab. CERNER THOMENNIUM Blood specimen (specimen) Venous Draw / Unknown 05/20/2014 5:15 PM EST 05/20/2014 5:32 PM EST Belkis Louie MD CHEMISTRY ORDERABLES Performing Organization Address City/[facility] Co de Phone Number LINDA KEMPIUM * [...] noted, a manual differential will be performed. Deboar Gran Abs 0.01 0.00 - 0.05 x10(3)/mcL CERNER MILLENNIUM Blood specimen (specimen) 05/20/2014 5:15 PM EST 05/20/2014 5:31 PM EST Narrative Resulting Agency Comment Spec In Lab Belkis Louie MD HEMATOLOGY ORDERABLE S Performing Organization Address [facility] Co de Phone Number CERNER MILLENNIUM * (ABNORMAL) Hemogram (05/20/2014 5:15 PM [...] Lab Belkis Louie MD HEMATOLOGY ORDERABLE S Performing Organization Address City/[facility] Co de Phone Number CERNER MILLENNIUM * Blood culture (05/20/2014 5:15 PM EST) Blood Culture ? Patient Name: TANA SHELTON ? Ordered By: BELKIS LOUIE ? MR#: [id number] ?LOC: ??[place] ? /Sex: ??1995 (18 years), [...] ? No growth at 4 days. ? [facility] Blood specimen (specimen) STRUCTURE OF LEFT HAND / Unknown 05/20/2014 5:15 PM EST 05/20/2014 7:17 PM EST Comment:HOLD UNTIL MD HULL Narrative Resulting Agency Comment Spec In Lab Belkis Loiue MD MICROBIOLOGY - BLOOD ORDERABLES [facility] * Glucose, random (05/20/2014 5:15 PM EST) Glucose Lvl 81 60 - 199 mg/dL [facility] Comment:Diabetes: >=200 mg/d L plus symptoms Blood specimen (specimen) 05/20/2014 5:15 PM EST 05/20/2014 5:31 PM EST Narrative Resulting Agency Comment Spec In Lab Belkis Louie MD CHEMISTRY ORDERABLES Performing Organization Address [facility] Co de Phone Number LINDA BASHIR * (ABNORMAL) Creatinine (05/20/2014 5:15 PM EST) Creatinine 0.37(L) 0.70 - 1.20 mg/dL [facility] Comment: Please note that the pediatric reference intervals supplied above were not validated [place] [facility] Results from pediatric patients should be interpreted in conjunction to the patient's age, height and muscle mass. Estimated GFR >60 >=60 [facility] Comment: This estimated GFR (eGFR) value [...] the following links into your internet browser. [email or web address] Blood specimen (specimen) 05/20/2014 5:15 PM EST 05/20/2014 5:31 PM EST Narrative Resulting Agency Comment Spec In Lab Belkis Louie MD CHEMISTRY ORDERABLES Performing Organization Address [facility] Co de Phone Number LINDA BASHIR * BUN (05/20/2014 5:15 PM EST) BUN 9 8 - 18 mg/dL [facility] Blood specimen (specimen) 05/20/2014 5:15 PM EST 05/20/2014 5:31 PM EST Narrative Resulting Agency Comment Spec In Lab Belkis Louie MD CHEMISTRY ORDERABLES Performing Organization Address [facility] Co de Phone Number LINDA BASHIR * (ABNORMAL) Electrolytes panel (05/20/2014 [...] In Lab Belkis Louie MD CHEMISTRY ORDERABLES [facility] documented in this encounter Visit Diagnoses Not on filedocumented in this encounter Administered Medications Inactive Administered Medications - up to 3 most recent administrations Medication Order MAR Action Action Date Dose Rate Site bacitracin injection ONCE PRN, Starting on 05/20/14 at 2153, Until 05/21/14 at 0100, Intra-Operative (Intra-Procedure), Routine Given 05/20/2014 9:53 PM EST 10,000 Units gelatin adsorbable (GELFOAM) sponge ONCE PRN, Starting on 05/20/14 at 2153, Until 05/21/14 at 0100, Intra-Operative (Intra-Procedure) Given 05/20/2014 9:53 PM EST 2 each 19- Surgical Site thrombin (Bovine) (THROMBINAR) kit ONCE PRN, Starting on 05/20/14 at 2153, Until 05/21/14 at 0100, Intra-Operative (Intra-Procedure) Given 05/20/2014 9:53 PM EST 5,000 Units documented in this encounter Active and Recently [...] Nely Boss, 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 0616 (Given - Provider: Linsey Mcintyre RN)1446 (Given - Provider: Dolores Patino RN)220 (Given - Provider: Linsey Mcintyre RN) 0627 (Given - Provider: Linsey Mcintyre RN)1410 (Given - Provider: Tasha Yu)224 (Given - Provider: Margot Monzon RN) 0557 (Given - Provider: Margot Monzon RN) ciprofloxacin (CIPRO) 500 mg/5 mL oral suspension 250 mg (CANCELED) 250 mg, Oral, 2 TIMES DAILY, First dose on 05/27/14 at 1000, Until Discontinued, Indication for (Active or Suspected): Skin/Skin Structure 0804 (Given - Provider: Linsey Mcintyre RN)2050 (Given - Provider: Linsey Mcintyre RN) 0700 (Given - Provider: Dolores Patino RN)2009 (Given [...] routine)2050 (Given - Provider: Margot Monzon RN) 09 (Not Given - Provider: Hedy Vzaquez RN - Reason: Contraindicated - Comment: Frequent loose stools) docusate sodium (COLACE) oral liquid 100 mg (CANCELED) 100 mg, Oral, 2 TIMES DAILY, First dose on Thu05/31/14 at 1230, Until Discontinued, Routine 124 (Given - Provider: Dolores Patino RN)2050 (Given - Provider: Linsey Mcintyre RN) 100 (Given - Provider: Dolores Patino RN)2099 (Not Given - Provider: Margot Monzon RN - Reason: Patient/family refused) 09 (Not Given - Provider: Hedy Vazquez RN - Reason: See comment - Comment: Frequent loose stool) levofloxacin (LEVAQUIN) tablet 750 mg 750 mg, Oral, EVERY MORNING, 10 doses, First dose on Thu06/02/14 at 1400, Last dose on Thu06/11/14 at 0700, Routine, Indication for (Active or Suspected): Skin/Skin Structure, Restricted Antibiotic: Please indicate the most appropriate choice: ID Approval by Wai Crabtree [id number] (Given - Provid er: Elmer Cotto RN) levonorgestrel-ethinyl estradiol (SEASONALE) 0.15-30 mg-mcg per tablet 1 tablet (CANCELED) 1 tablet, Oral, DAILY, First dose on Thu05/21/14 at 0900, Until Discontinued, Pt may use own med, Routine 180 (Given - Provider: Dolores Patino RN) 182 (Given - Provider: Dolores Patino RN) nystatin (MYCOSTATIN) cream (CANCELED) Topical, 2 TIMES DAILY, First dose on Thu05/31/14 at 0900, Until Discontinued 1000 (Given - Provider: Dolores Patino RN)2099 (Given - Provider: Linsey Mcintyre RN) 0900 [...] Caregiver) 0900 (Not Given - Provider: Hedy Vazquez, EUNICE - Reason: Contraindicated - Comment: frequennt loose [...] Linsey Mcintyre RN)[phone] (Given - Provider: Dolores Patino RN)1758 (Given - Provider: Dolores Patino RN) 0142 (Given - Provider: Linsey Mcintyre RN)1027 (Given - Provider: Yas Cam RN)1817 (Given - Provider: Dolores Patino RN) 0120 (Given - Provider: Margot Monzon RN)0836 (Given - Provider: Hedy Vazquez, EUNICE) Continuous Medication Order 05/31/2014 06/01/2014 06/02/2014 sodium [...] sufficient., Routine 1238 (Given - Provider: Dolores Patino RN) oxyCODONE (ROXICODONE) immediate release tablet 5-10 mg (CANCELED) 5-10 mg, Oral, EVERY 4 HOURS PRN, Starting on 05/20/14 at 2225, Until Thu06/02/14 at 1832, Pain, PAIN, 5 mg pain 1-6 10 mg pain 7-10, Routine 1659 (Given - Provider: Dolores Patino RN) 1416 (Given - Provider: Dolores Patino RN) [...] Oral, EVERY 4 HOURS PRN, Starting on 05/26/14 at 0904, Until 06/02/14 at 1832, Pain, Fever, Maximum dose of acetaminophen is 4,000 mg from all sources in 24 hours., Routine Or acetaminophen (TYLENOL) suppository 650 mg (CANCELED)Jump to med 650 mg, Rectal, EVERY 4 HOURS PRN, Starting on Thu05/26/14 at 0904, Until 06/02/14 at 1832, Pain, Fever, Give if unable to tolerate PO, Maximum dose of acetaminophen is 4000 mg from all sources in 24 hours., Routine documented in this encounter Care Teams Wrapper Operator Relationship Specialty Start Date End Date Naina [place] [address] PCP - General 03/19/10 08/25/16 documented as of this encounter
--- OUTSIDE RECORDS SUMMARY | 2023-11-09 18:18 | XMS_ITS | Encounter Summary ---
Author Organization [facility] [place] [address] Care Team Providers Care Rail Operations Controller Name Role Phone Naina Lindsey MD Primary Care Provider [phone] Reason for Visit * Reason Comments Post-op Problem Encounter Details Date Type Department Care Team (Late st Contact Info) Description 05/26/2014 4:30 PM EST - 05/26/2014 7:03 PM EST Surgery [place] [address] Freddy Burciaga MD [facility] [place] [address] @I & D, OPEN, DEEP ABSCESS, LUMBAR, [...] Routine, Hospital Performed Vendor / contact information: [facility] Patient location post discharge: home Service requested: IV abx Start date: 05/26/2014 Responsible MD post discharge contact info: WILL Smith (Edit) Referral to Home Health - at DISCHARGE Routine, Clinic Performed Agency name and contact information: [facility] Patient location post discharge: home What services are requested: Registered Nurse, Home Health Aide, Physical Therapy, Occupational Therapy Start date: 05/26/2014 Responsible MD post discharge contact info: PCP PATIENT'S LOCATION: Tana Shelton [address] [place] [phone] (home) In discussion with the attending physician, it is certified that this patient is under their care and that they, or a Nurse Practitioner,Clinical Nurse specialist or Physician Gauge Inspector who is working directly with them, had [...] Continue with therapies OT: Continue with therapies ORTHODONTIC TECHNICIAN ASSISTANT: Continue support HOME HEALTH CARE AGENCY: [facility] [employer]. PHONE: [phone] FAX: [phone] Start of care: 05/26/14 Please note that any additional orders needs or changes will need to be obtained from this patient's PCP: MD Coby BRAGG DR / [facility] [id number] All VNA agencies which cover the area of patient's residence have been reviewed, either verbally or in writing, and patient/family have chosen the home health care agency noted Emergency contact: After hours and weekends, call the [facility] base wad operator adjuster at and ask them to page the neurosurgery resident assembly lead person. documented in this encounter Medications at Time [...] (AVS) and given to the patient or account representative. 6) If VNA was ordered, I [...] Comments: Patient discharged to home with mom. Elmre Cotto RN * Elmer Flanagan MD - [...] 0.9% 50 mL Mini-Bag Plus 2 g ZvybiaqvgqmG1I ??? baclofen 10 mg Oral Nightly ??? levonorgestrel-ethinyl estradiol 1 tablet Oral Daily ??? polyethylene glycol 17 g Oral Daily ??? sodium chloride 0.9 % 5 mL Intravenous BID ??? diaZEPam 5 mg Oral BID Continuous Infusions: ??? sodium chloride 0.9% with potassium chloride 20 mEq 50 mL/hr (06/01/14 7575) PRN Meds:acetaminophen OR acetaminophen, flu vaccine (36 [...] elevated HR this am S: Kenneth Rocco. [facility], [id number] singing ABCs and counting along with stretches [...] pt to d/chome with support and continued PT/OT/CAREER CENTER DIRECTOR/VNA services. Staff communication/Mobility Recommendations: Pt. Would benefit [...] timed interventions: 30 minutes for TherEx-F Pager: [phone] Mary Joe, OT Occupational Therapy Rehabilitation Department * Isra Perez RN - 06/01/2014 2:43 PM EST Patient Name: Tana Shelton Patient Age: 18 y.o. Birthdate: 1995 Admit date: 05/20/2014 Attending Physician: Jamaal Samuel MD OFFICE OF CARE MANAGEMENT Farhana Perez RN Pager: [phone] CLINICAL REFUGE MANAGER PROGRESS NOTE e-DH reviewed. Report received from DEMI Sanchez. Patient continues to require acute inpatient care for the treatment of infection. Patient remains on triple abx while awaiting final cultures. [facility] have been referred to for discharge. Met with patient's mother at bedside. Mom had multiple questions the other day regarding equipment for home. Mattress for hospital bed was ordered and delivered to home from [facility]. Tomasa Sling was ordered and is to be delivered by [facility] when it ships to [facility] warehouse. TLSO brace to be fitted by [place]. Mom also inquired about a new motorized wheelchair. Called [facility] in [place] to see if patient would qualify, left message with Oliver- the industrial rehabilitation consultant for [facility]. Patient will need a assessment and [...] 0.9% 50 mL Mini-Bag Plus 2 g JqmkgfpioprC1Q ??? baclofen 10 mg Oral Nightly ??? [...] has recovered and I can review the [facility] records and films * Natividad Esqueda, [...] family in a single story home in [place], [place]. Pt's mother reports that there is no stair requirement, and that she has all necessary equipment. Stairs: 0 without a rail to enter Baseline Mobility: Completely dependent for all care, home nursing VNA services 3x/week, school-based PT/OT/CAREER CENTER DIRECTOR, pt due to receive a communication device [...] than in previous treatment session, counting withthis scientific writer during stretching Objective: Patient seen for [...] internal rotators, adductors ?? Pt helped this scientific writer with opposite UE when performing stretching [...] session, playing with toys, playfully tricking this scientific writer when counting during passive stretching, and [...] exercise Natividad Esqueda PT, DPT 05/31/2014 Pager: [phone] Physical Therapy Inpatient Rehabilitation Department * Nathalie [...] OF CARE MANAGEMENT Farhana Perez RN Pager: [phone] CLINICAL REFUGE MANAGER PROGRESS NOTE e-DH reviewed. Report received from DEMI Sanchez. Patient continues to require acute inpatient care for the treatment of infection. Patient is on triple abx. Patient needs a new mattress for her hospital bed at home. Patient's mother would like order placed with [employer]. Order pended and booking sent via [employer] Plan: CRC will continue to follow for [...] pt to d/chome with support and continued PT/OT/CAREER CENTER DIRECTOR/VNA services. Staff communication/Mobility Recommendations: Pt. Would benefit [...] timed interventions: 45 minutes for TherEx Pager: [phone] Mary Joe OT Occupational Therapy Rehabilitation Department [...] 0.9% 50 mL Mini-Bag Plus 2 g YrmnygmsjooH3N ??? baclofen 10 mg Oral Nightly ??? [...] OF CARE MANAGEMENT Farhana Perez RN Pager: [phone] CLINICAL REFUGE MANAGER PROGRESS NOTE e-DH reviewed. Report received from [...] as pt becomes available. Please contact this scientific writer with any further questions or concerns. Thank you. Pager: [phone] Mary Joe OTR/L Occupational Therapy Inpatient Rehabilitation [...] family in a single story home in [place], [place]. Pt's mother reports that there is no stair requirement, and that she has all necessary equipment. Stairs: 0 without a rail to enter Baseline Mobility: Completely dependent for all care, home nursing VNA services 3x/week, school-based PT/OT/CAREER CENTER DIRECTOR, pt due to receive a communication device [...] pt very smiley today, counting with this scientific writer during stretching, showing off her favorite [...] exercise Natividad Esqueda PT, DPT 05/29/2014 Pager: [phone] Physical Therapy Inpatient Rehabilitation Department * Wai [...] not hesitate to page us on pager [phone] with further questions or concerns. Patient discussed with Dr. Wai Crabtree. Dimple Messina MD Fellow, Infectious Disease 05/29/2014 ID Staff: Discussed with Dr. Messina. Agree with current regimen. This will be a very difficult regimen at [facility] some further discussion is needed. [...] 0.9% 50 mL Mini-Bag Plus 2 g LqpmrqkktbcR4T ??? baclofen 10 mg Oral Nightly ??? [...] 0.9% 50 mL Mini-Bag Plus 2 g NhumwxmkfnmK4X ??? baclofen 10 mg Oral Nightly ??? [...] CRC received call from EUNICE Hair, from [place], [place] or Asking for status as they will follow her after discharge for IV antibiotic treatment. She will need an OPAT order faxed to above agency when she is ready for discharge as well as administration teaching for home. When ready for discharge, [facility] PHONE: [phone] FAX: [phone] will also need to be updated. Referral had been made by previous CRC. Covering pager #[phone] for pager #[phone]. * Darius Maguire T - 05/27/2014 8:23 [...] 0.9% 50 mL Mini-Bag Plus 2 g KlyahtfbfhaJ5O ??? baclofen 10 mg Oral Nightly ??? [...] Dressing clean and dry Wound without fluctuance [address] Assessment/Plan:: 18 y.o. female s/p removal [...] family in a single story home in [place], [place]. Pt's mother reports that there is no stair requirement, and that she has all necessary equipment. Stairs: 0 without a rail to enter Baseline Mobility: Completely dependent for all care, home nursing VNA services 3x/week, school-based PT/OT/CAREER CENTER DIRECTOR, pt due to receive a communication device [...] exercise Natividad Esqueda PT, DPT 05/26/2014 Pager: [phone] Physical Therapy Inpatient Rehabilitation Department * Freddy Burciaga MD - 05/26/2014 6:27 AM EST Neurosurgery - Inpatient Progress Note ID: Tana Shelton, 18 y.o. female s/p removal of retained hardware, washout of infection 05/20 POD 6 Interval Hx: -ALEKSANDRA -Neurologically stable Objective: Medications: Scheduled Meds: ??? cefTAZidime (FORTAZ) 2g vial attach to sodium chloride 0.9% 50 mL Mini-Bag Plus 2 g ScddosuhdvbM1Z ??? baclofen 10 mg Oral Nightly ??? [...] (05/26) or when appropriate. Please page this scientific writer if you have any questions, thank you. Natividad Esqueda PT Pager #[phone] Physical Therapy Inpatient Rehabilitation * Mary Joe, [...] pt to d/chome with support and continued PT/OT/CAREER CENTER DIRECTOR/VNA services. Spoke to CRC this about thoracic [...] timed interventions: 27 minutes for TherEx Pager: [phone] Mary Joe OT Occupational Therapy Rehabilitation Department [...] 0.9% 50 mL Mini-Bag Plus 2 g EdstlzfpduzR7N ??? baclofen 10 mg Oral Nightly ??? [...] of Care Management Farhana Perez RN Pager: [phone] Clinical Forensics Team Director Home IV Antibiotic Therapy Referral Note. Report received from NeuroSurgery Team that patient will require continued home IV antibiotic therapy after discharge from the hospital. Met with patient/family to discuss vendor and visiting nurse choices for home IV antibiotic therapy. Reviewed Home Infusion Vendors and Home Health Agencies that serve patient???s address and accept patient???s insurance. Home Health Agency: Patient requested referral to [facility] [employer] [employer]. PHONE: [phone] FAX: [phone]. Referrals sent via [employer]. Home Infusion Vendor: Patient requested referral to [place], [place] [phone] or Fax: . Referrals sent via [employer]ischarge. [...] 0.9% 50 mL Mini-Bag Plus 2 g OwwoeobolwxS9Y ??? baclofen 10 mg Oral Nightly ??? [...] of infection 05/20 POD 3 Interval Hx: -ALEKSANRDA -Neurologically stable Objective: Medications: Scheduled Meds: ??? piperacillin-tazobactam 3.375 g Intravenous Q6H ??? cefTAZidime (FORTAZ) 2g vial attach to sodium chloride 0.9% 50 mL Mini-Bag Plus 2 g AoagllxjprvC3P ??? baclofen 10 mg Oral Nightly ??? [...] PM EST Office of Care Management Clinical Forensics Team Director Patient Name: Tana Shelton : 1995, 18 [...] None on File (x) HEALTH /PRESCRIPTION COVERAGE: [place] [facility] CURRENT HOME/COMMUNITY SERVICES/EQUIPMENT: DME: [facility] bed, wheelchair, tomasa lift, shower chair. Home Health Agency: [facility] PRIMARY CARE PHYSICIAN: NAINA LINDSEY MD [phone] POTENTIAL DISCHARGE NEEDS: Resume vna visits. Mother stated that she has [facility] - RN and Aide currently. Waiting to confirm this and pt needs. Might need home IV antibx. TRANSPORTATION @ D/C: family PLAN: CRC will continue to monitor progress, follow for continuity of care and assist with discharge planning while hospitalized Lesly Jesus RN Office of Care Management Clinical Forensics Team Director Covering for Farhana Chris [phone] Pager [phone] * Yandy Dasilva, PharmD - 05/22/2014 9:46 AM EST Clinical Pharmacist Note-Vanc Tana S Dirk [id number] 1995 Tana Barlowrd is a 18 y.o. [...] have. Alternately, during off-hours you may call [phone] to contact a pharmacist. Yandy Dasilva PHARMBenjamin Pager [phone] * Freddy Burciaga MD - 05/22/2014 6:59 [...] Clinically does not seem to be of COLLATOR OPERATOR origin. Continue triple antibiotics. ID consult. [...] given to Diana RN Peds. Transferred to [place] [address] with transport services, RN + family members. Please call Anurag ICU-RN at [phone] with regards to any questions post transfer. [...] mcL Appearance UA Hazy (*) Clear Spec [place] UA 1.026 1.002 - 1.030 Color UA [...] TANA SHELTON Ordered By: Freddy BURCIAGA MR#: [id number] LOC: OR /Sex: 1995 (18 years), Female PROCEDURE: Tissue Culture SOURCE: Back COLLECTED: 05/20/2014 20:20 FREE TEXT SOURCE: Lumbar Wound Culture STARTED: 05/20/2014 22:13 STAINS / PREPARATIONS Gram Stain Report Verified:05/20/2014 22:28 Few White Blood Cells seen No microorganisms seen. TISSUE CULTURE Result Value Ref Range Tissue Culture Value: Patient Name: TANA SHELTON Ordered By: EVITAFreddy IRENE MR#: [id number] LOC: OR /Sex: 1995 (18 years), Female [...] II initiated 0040: Report given to Jenn CLINICAL DIETITIAN info reviewed/questions answered, pt ready for transfer [...] to the planned procedure. Hand Hygiene: The ambulance assistant did perform hand hygiene prior to line insertion. Catheter type: PICC Lot number: [id number] Procedure Technique: Skin was prepped with chlorhexidine. [...] warm and was flushed. They called the assembly lead person neurosurgeon, who advised that they come to [...] FEMORAL HEAD, BILATERAL performed by YAS OLIVER [facility] MAIN OR ??? Apply of hip casts, two legs 08/15/2010 CAST APPLICATION, HIP SPICA, BOTH LEGS performed by YAS OLIVER at [facility] MAIN OR ??? Removal deep implant 08/15/2010 REMOVAL IMPLANT, DEEP, BRUNO performed by YAS OLIVER at [facility] MAIN OR ??? Osteotomy femur shaft/supracondy 08/15/2010 ??OSTEOTOMY, FEMUR SHAFT OR SUPRACONDYLAR W/O FIXATION performed by YAS OLIVER at [facility] MAIN OR ??? Remove spinal canal catheter N/A 05/11/2014 REMOVAL OF INTRATHECAL OR EPIDURAL CATHETER performed by Jamaal Samuel MD at [facility] MAIN OR ??? Remove infusn device/pump N/A 05/11/2014 REMOVAL OF SPINE INFUSION PUMP performed by Jamaal Samuel MD at [facility] MAIN OR Medications: No current [...] stepfather Tobacco exposure:No Day care/year in school: [employer] Physical Exam: Vitals: Patient Vitals for the [...] mcL Appearance UA Hazy (*) Clear Spec [place] UA 1.026 1.002 - 1.030 Color UA [...] intrathecal baclofen pump in 2007 at the [facility]. Mother feels that the pump has [...] Size requested: twin bed Vendor Name/Contact information: [employer] [facility] (Edit) Referral for Outpatient Antibiotics Routine, Hospital Performed Vendor / contact information: [facility] Patient location post discharge: home Service requested: IV abx Start date: 05/26/2014 Responsible MD post discharge contact info: PCP New (Edit) Referral to Home Health - at DISCHARGE Routine, Clinic Performed Agency name and contact information: [facility] Patient location post discharge: home What services are requested: Registered Nurse, Home Health Aide, Physical Therapy, Occupational Therapy Start date: 06/06/2014 Responsible MD post discharge contact info: PCP PATIENT'S LOCATION: Tana Shelton [address] [place] [phone] (home) In discussion with the attending physician, it is certified that this patient is under their care and that they, or a Nurse Practitioner,Clinical Nurse specialist or Physician Gauge Inspector who is working directly with them, had [...] Continue with therapies OT: Continue with therapies ORTHODONTIC TECHNICIAN ASSISTANT: Continue support HOME HEALTH CARE AGENCY: [facility] PHONE: [phone] FAX: [phone] Start of care: 05/26/14 Please note that any additional orders needs or changes will need to be obtained from this patient's PCP: MD Coby BRAGG DR / [place] [address] All VNA agencies which cover the area of patient's residence have been reviewed, either verbally or in writing, and patient/family have chosen the home health care agency noted Emergency contact: After hours and weekends, call the [facility] base wad operator adjuster at and ask them to page the neurosurgery resident assembly lead person. * Plan of Care - Margot Monzon [...] yo. Supervision: Continuous; Moraima. Fannie at home water tester at bedside this morning ; Mom arrived [...] (Interventions Implemented as Appropriate) 05/25/14 0527 05/26/14 4935 Plan of Care Review Plan of Care [...] AM EST Clinical Pharmacist Note-Vancomycin Tana Shelton [id number] 1995 Tana Shelton is a 18 y.o. [...] contact a pharmacist. Elmer Tobin, [place] Pager [phone] * Plan of Care - Leana Hicks [...] Outcome: Ongoing (Interventions Implemented as Appropriate) 05/27/14 2659 Infection, Risk/Actual (Adult, Obstetrics) Infection Prevention/Resolution/Control making progress toward outcome Problem: Fall/Trauma/Injury Risk (Pediatric) Goal: Identify Signs and Symptoms and Related Risk Factors Signs and symptoms and related risk factors are identified upon initiation of Human Response Clinical Practice Guideline (CPG) Outcome: Outcome (s) achieved Date Met: 05/27/14 05/22/14202905/25/14 399 Fall/Trauma/Injury Risk Personal Related Risk Factors (Fall/Trauma/Injury [...] Burciaga MD - 05/26/2014 4:52 PM EST [facility] Operative Note Patient Name: Tana Shelton : [id number] MR#: [id number] Case Date: 05/26/2014 Surgeon: Surgeon(s) and Role: [...] (Interventions Implemented as Appropriate) 05/22/14 0634 05/24/14 3034 Discharge Needs Assessment Concerns to be Addressed [...] Health Knowledge, Opportunity for Enhanced (Adult, NICU, Leroy, Obstetrics, Pediatric) Goal: Identify Signs and Symptoms and Related Risk Factors Signs and symptoms and related risk factors are identified upon initiation of Human Response Clinical Practice Guideline (CPG) Outcome: Ongoing (Interventions Implemented as Appropriate) * Plan of Care - Carisa Godwin RN - 05/25/2014 8:02 AM EST Problem: Health Knowledge, Opportunity for Enhanced (Adult, NICU, Leroy, Obstetrics, Pediatric) Goal: Knowledgeable about Health Subject/Topic Patient will demonstrate the desired outcomes. Outcome: Outcome (s) achieved Date Met: 05/25/14 05/25/14 0802 Health Knowledge, Opportunity for Enhanced (Adult, NICU, Leroy, Obstetrics, Pediatric) Knowledgeable about Health Subject/Topic achieves [...] bedside;lighting adjusted for task/safety;low bed;environmental modification 05/25/14 0592 Musculoskeletal Interventions Activity/Level of Assistance -- Self-Care [...] Outcome: Ongoing (Interventions Implemented as Appropriate) 05/24/14 1779 Plan of Care Review Plan of Care [...] FEMORAL HEAD, BILATERAL performed by YAS OLIVER [facility] OR ??? Apply of hip casts, two legs 08/15/2010 CAST APPLICATION, HIP SPICA, BOTH LEGS performed by YAS OLIVER at [facility] OR ??? Removal deep implant 08/15/2010 REMOVAL IMPLANT, DEEP, BRUNO performed by YAS OLIVER at [facility] OR ??? Osteotomy femur shaft/supracondy 08/15/2010 ??OSTEOTOMY, FEMUR SHAFT OR SUPRACONDYLAR W/O FIXATION performed by YAS OLIVER at [facility] OR ??? Remove spinal canal catheter N/A 05/11/2014 REMOVAL OF INTRATHECAL OR EPIDURAL CATHETER performed by Jamaal Samuel MD at [facility] OR ??? Remove infusn device/pump N/A 05/11/2014 REMOVAL OF SPINE INFUSION PUMP performed by Jamaal Samuel MD at [facility] OR ? ? I&d, post spine, lumb/sacr/lumbosac N/A 05/20/2014 @I & D, OPEN, DEEP ABSCESS, LUMBAR, SACRAL, LUMBOSACRAL performed by Freddy Burciaga MD at [facility] OR ??? Repr, dural/csf leak, not req laminectomy N/A 05/20/2014 @REPAIR DURAL\CSF LEAK,NOT REQUIRING LAMINECTOMY performed by Freddy Burciaga MD at [facility] OR Social and Developmental History: Patient lives with her family in a single level home in [place], [place]. Pt's mother reports that their home [...] has an older sister who lives in [place] and 3 younger brothers. She likes to [...] RN and mom assist. Feeding: per mom: [place] assist for use of utensils; not observed [...] to d/c home with support and continued PT/OT/CAREER CENTER DIRECTOR/VNA services. Spoke with CRC about consultfor new [...] you for this occupational therapy consult. Pager: [phone] Mary Joe OT 05/24/2014 Occupational Therapy Rehabilitation [...] FEMORAL HEAD, BILATERAL performed by YAS OLIVER [facility] OR ??? Apply of hip casts, two legs 08/15/2010 CAST APPLICATION, HIP SPICA, BOTH LEGS performed by YAS OLIVER at [facility] OR ??? Removal deep implant 08/15/2010 REMOVAL IMPLANT, DEEP, BRUNO performed by YAS OLIVER at [facility] OR ??? Osteotomy femur shaft/supracondy 08/15/2010 ??OSTEOTOMY, FEMUR SHAFT OR SUPRACONDYLAR W/O FIXATION performed by YAS OLIVER at [facility] OR ??? Remove spinal canal catheter N/A 05/11/2014 REMOVAL OF INTRATHECAL OR EPIDURAL CATHETER performed by Jamaal Samuel MD at [facility] OR ??? Remove infusn device/pump N/A 05/11/2014 REMOVAL OF SPINE INFUSION PUMP performed by Jamaal Samuel MD at [facility] OR ? ? I&d, post spine, lumb/sacr/lumbosac N/A 05/20/2014 @I & D, OPEN, DEEP ABSCESS, LUMBAR, SACRAL, LUMBOSACRAL performed by Freddy Burciaga MD at [facility] OR ??? Repr, dural/csf leak, not req laminectomy N/A 05/20/2014 @REPAIR DURAL\CSF LEAK,NOT REQUIRING LAMINECTOMY performed by Freddy Burciaga MD at [facility] MAIN OR Social History: Patient lives with her family in a single story home in [place], [place]. Pt's mother reports that there is no stair requirement, and that she has all necessary equipment. Stairs: 0 without a rail to enter Baseline Mobility: Completely dependent for all care, home nursing VNA services 3x/week, school-based PT/OT/CAREER CENTER DIRECTOR, pt due to receive a communication device [...] appropriate and joins in counting with this scientific writer while stretching Objective: Pt seen for [...] minutes Natividad Esqueda PT, DPT 05/24/2014 Pager: [phone] Physical Therapy Inpatient Rehabilitation Department * Plan [...] based on it's ability to penetrate the COLLATOR OPERATOR. We need todiscuss whether to pursue [...] to 40 mEq. One dose of IV skzepmlul22 mEq administered per orders. Re-check of K [...] placement of baclofen pump in 2007 in [place]. Due to lack of efficacy the baclofen [...] and Lipase were normal. Per her daycare embedded software developer, may be related to administration of oxycodone as this has been issue in the past. Cannotexclude component of baclofen withdrawal, but less likely. No current concern for acute COLLATOR OPERATOR process. - Serial exams. Ensure daily [...] although it may not have the best COLLATOR OPERATOR penetration unless meninges are actually inflamed. [...] fluid only. MD called for antiemetic and [place] tylenol. Zofran given when order receivedand med [...] PREVENTION: Assistance: Full assist, mom at bedside. linen aide will be coming in today to [...] Burciaga MD - 05/21/2014 11:53 AM EST [facility] Operative Note Patient Name: Tana Shelton : [id number] MR#: [id number] Case Date: 05/20/2014 - 05/21/2014 Surgeon: Surgeon(s) [...] FEMORAL HEAD, BILATERAL performed by YAS OLIVER [facility] MAIN OR ??? Apply of hip casts, two legs 08/15/2010 CAST APPLICATION, HIP SPICA, BOTH LEGS performed by YAS OLIVER at [facility] MAIN OR ??? Removal deep implant 08/15/2010 REMOVAL IMPLANT, DEEP, BRUNO performed by YAS OLIVER at [facility] MAIN OR ??? Osteotomy femur shaft/supracondy 08/15/2010 ??OSTEOTOMY, FEMUR SHAFT OR SUPRACONDYLAR W/O FIXATION performed by YAS OLIVER at [facility] MAIN OR ??? Remove spinal canal catheter N/A 05/11/2014 REMOVAL OF INTRATHECAL OR EPIDURAL CATHETER performed by Jamaal Samuel MD at [facility] MAIN OR ??? Remove infusn device/pump N/A 05/11/2014 REMOVAL OF SPINE INFUSION PUMP performed by Jamaal Samuel MD at [facility] MAIN OR No family history [...] mcL Appearance UA Hazy (*) Clear Spec [place] UA 1.026 1.002 - 1.030 Color UA [...] TANA SHELTON Ordered By: Freddy BURCIAGA MR#: [id number] LOC: OR /Sex: 1995 (18 years), Female PROCEDURE: Tissue Culture SOURCE: Back COLLECTED: 05/20/2014 20:20 FREE TEXT SOURCE: Lumbar Wound Culture STARTED: 05/20/2014 22:13 STAINS / PREPARATIONS Gram Stain Report Verified:05/20/2014 22:28 Few White Blood Cells seen No microorganisms seen. TISSUE CULTURE Result Value Range Tissue Culture Value: Patient Name: TANA SHELTON Ordered By: Freddy BURCIAGA MR#: [id number] LOC: OR /Sex: 1995 (18 years), Female [...] EDT TH Visit (TeleHealth) [place] [phone] Lilli Joy APRN [facility] [place] [address] 11/30/2023 12:50 PM ED[place] [phone] 12/03/2023 12:30 PM EDT Office [place] [phone] Hollie Ambriz MD [facility] [place] [address] Pending Results Name Type Priority Associated Diagnoses [...] 05/26/2014 12:40 PM EST TYPE AND SCREEN ([facility]/ROSAS) STAT 05/26/2014 12:[address] LUMBAR [...] REQUIRING LAMINECTOMY Routine 05/20/2014 10:22 PM EST BLISTER PACK OPERATOR CULTURE Routine 5 10:01 PM EST ANAEROBIC CULTURE Routine 05/20/2014 9:2 5 PM EST TISSUE CULTURE, AEROBIC & ANAEROBIC Routine 05/20/2014 9:25 PM EST TISSUE CULTURE Routine 05/20/2014 9:25 PM EST ANAEROBIC CULTURE Routine 05/20/2014 8:2 0 PM [...] intervals supplied above were not validated at [facility]. Results from pediatric patients should be interpreted [...] the following links into your internet browser. [email or web address] Blood specimen (specimen) 06/02/2014 5:55 AM EST 06/02/2014 6:09 AM EST Narrative Resulting Agency Comment Spec In Lab S Alek Burciaga MD CHEMISTRY ORDERABLES Performing Organization Address [facility] de Phone Number [facility] * (ABNORMAL) Sedimentation rate (06/01/2014 12:40 PM EST) Sed Rate 46(H) 0 - 20 mm/hr [facility] Blood specimen (specimen) Venous Draw / Unknown 06/01/2014 12:40 PM EST 06/01/2014 12:48 PM EST Narrative Resulting Agency Comment Spec In Lab S Alek Burciaga MD HEMATOLOGY ORDERABLE S Performing Organization Address [facility] Phone Number [facility] * High Sensitivity CRP (06/01/2014 12:40 PM EST) Pathologist [facility] CRP High Sens 15.4 mg/L [facility] Comment: Interpretations: 1) For accurate cardiac [...] * (ABNORMAL) Hemogram (06/01/2014 12:40 PM EST) Pathologist [facility] WBC 7.4 4.0 - 10.0 x10(3)/mcL CERNER [...] S Alek Burciaga [facility] * (ABNORMAL) Basic Metabolic Panel (non-fasting) (06/01/2014 12:40 PM EST) [facility] Glucose Lvl 95 60 - 199 mg/dL [facility] Comment:Diabetes: >=200 mg/d L plus symptoms BUN 4(L) 8 - 18 mg/dL CERNER MILLENNIUM Creatinine 0.38(L) 0.70 - 1.20 mg/dL CERNER MILLENNIUM Comment: Please note that the pediatric reference intervals supplied above were not validated at [facility]. Results from pediatric patients should be interpreted [...] the following links into your internet browser. [email or web address] Blood specimen (specimen) 06/01/2014 12:40 PM EST [...] MD HEMATOLOGY ORDERABLE S Performing Organization Address City/State/[facility] Co de Phone Number CERNER MILLENNIUM * (ABNORMAL) Hemogram (05/30/2014 6:50 [...] S Alek Burciaga MD HEMATOLOGY ORDERABLE S [facility] * (ABNORMAL) Basic Metabolic Panel (non-fasting) (05/30/2014 6:50 AM EST) Glucose Lvl 82 60 - 199 mg/dL CERNER MILLENNIUM Comment:Diabetes: >=200 mg/d L plus symptoms BUN 4(L) 8 - 18 mg/dL CERNER MILLENNIUM Creatinine 0.29(L) 0.70 - 1.20 mg/dL CERNER MILLENNIUM Comment: Please note that the pediatric reference intervals supplied above were not validated at [facility]. Results from pediatric patients should be interpreted [...] the following links into your internet browser. [email or web address] Blood specimen (specimen) 05/30/2014 6:50 AM EST [...] ORDERABLE S CERNER MILLENNIUM * (ABNORMAL) Hemogram (05/29/2014 7:13 AM [...] intervals supplied above were not validated at [facility]. Results from pediatric patients should be interpreted [...] the following links into your internet browser. [email or web address] Blood specimen (specimen) 05/29/2014 7:13 AM EST [...] MD HEMATOLOGY ORDERABLE S Performing Organization Address City/[facility]/ZIP Co de Phone Number CERNER MILLENNIUM * (ABNORMAL) Hemogram (05/28/2014 9:00 [...] MD HEMATOLOGY ORDERABLE S Performing Organization Address City/[facility]/ZIP Co de Phone Number [facility] TOMASENNI[facility] * Vancomycin, trough (05/28/2014 9:00 [...] intervals supplied above were not validated at [facility]. Results from pediatric patients should be interpreted [...] the following links into your internet browser. [email or web address] Blood specimen (specimen) 05/28/2014 9:00 AM EST [...] MD HEMATOLOGY ORDERABLE S Performing Organization Address [facility]/ZIP Co de Phone Number CERNER MILLENNIUM * [...] Lab Freddy Burciaga MD HEMATOLOGY ORDERABLE S [facility] * (ABNORMAL) Basic Metabolic Panel (non-fasting) (05/27/2014 5:30 AM EST) Glucose Lvl 81 60 - 199 mg/dL CERNER MILLENNIUM Comment:Diabetes: >=200 mg/d L plus symptoms BUN 4(L) 8 - 18 mg/dL CERNER MILLENNIUM Creatinine 0.21(L) 0.70 - 1.20 mg/dL CERNER MILLENNIUM Comment: Please note that the pediatric reference intervals supplied above were not validated at [facility]. Results from pediatric patients should be interpreted [...] the following links into your internet browser. [email or web address] Blood specimen (specimen) 05/27/2014 5:30 AM EST 05/27/2014 5:39 AM EST Narrative Resulting Agency Comment Spec In Lab Freddy Burciaga MD CHEMISTRY ORDERABLES [facility] * Anaerobic Culture (05/26/2014 5:30 PM EST) Anaerobic Culture ? Patient Name: TANA SHELTON ? Ordered By: Freddy BURCIAGA ? MR#: [id number] ?LOC: ??[place] ? /Sex: ??1995 (18 years), [...] - GENER AL ORDERABLES LINDA KEMPIUM * Tissue culture (05/26/2014 5:30 PM EST) Tissue Culture ? Patient Name: TANA SHELTON ? Ordered By: Freddy BURCIAGA ? MR#: [id number] ?LOC: ??[place] ? /Sex: ??1995 (18 years), [...] S ? Patient: TANA SHELTON ? MR#: [id number] ? S=Susceptible ??I=Intermediate ??R=Resistant ??NA=Not Applicable ? DDS=Dose dependent-suscept ible ??NS=Non-suscepti ble ? CERNER MILLENNIUM Structure of back of trunk (body structure) 05/26/2014 5:30 PM EST 05/26/2014 5:41 PM EST Comment:LUMBAR Narrative Resulting Agency Comment Spec In Lab S Alek Burciaga MD MICROBIOLOGY - GENER AL ORDERABLES [facility] * Anaerobic Culture (05/26/2014 5:30 PM EST) Anaerobic Culture ? Patient Name: TANA SHELTON ? Ordered By: Freddy BURCIAGA ? MR#: [id number] ?LOC: ??[place] ? /Sex: ??1995 (18 years), [...] MD MICROBIOLOGY - GENER AL ORDERABLES [facility] * Tissue culture (05/26/2014 5:30 PM EST) Tissue Culture ? Patient Name: TANA SHELTON ? Ordered By: Freddy BURCIAGA ? MR#: [id number] ?LOC: ??[place] ? /Sex: ??1995 (18 years), [...] plates. ? Patient: TANA SHELTON ? MR#: [id number] ? SUSCEPTIBILITY RESULTS ? Coagulase negative Staphylococcus [...] (1) ? Gentamicin is not appropriate for [place]-therapy. ? (2) ? Penicillin resistant, Nafcillin susceptible Staphylococci are resistant to ? B-lactamase labile ? Penicillins including Ampicillin and Piperacillin, but susceptible to B- ? lactamase shelbie Penicillins ? (Nafcillin), B-lactamase inhibitor combinations, first and second ? generation Cephalosporins including ? Cefazolin, and to Cefepime and Meropenem. ? LINDA BASHIR Specimen of unknown material (specimen) 05/26/2014 5:30 PM EST 05/26/2014 5:41 PM EST Comment:ANTERIOR FLANK Narrative Resulting Agency Comment Spec In Lab S Alek Burciaga MD MICROBIOLOGY - GENER AL ORDERABLES LINDA BASHIR * Anaerobic Culture (05/26/2014 5:30 PM EST) Anaerobic Culture ? Patient Name: CRISTO SHELTONLIArthur Hayes ? Ordered By: Freddy BURCIAGA ? MR#: [id number] ?LOC: ??[place] ? /Sex: ??1995 (18 years), [...] ? Ordered By: Freddy BURCIAGA ? MR#: [id number] ?LOC: ??[place] ? /Sex: ??1995 (18 years), [...] No growth to date. ? LINDA BASHIR Specimen of unknown material (specimen) 05/26/2014 5:30 PM EST 05/26/2014 5:41 PM EST Comment:POSTERIOR FLANK Narrative Resulting Agency Comment Spec In Lab S Alek Burciaga MD MICROBIOLOGY - GENER AL ORDERABLES LINDA BASHIR * Antibody screen (05/26/2014 12:40 PM EST) Ab Screen Interp Negative LINDA KEMPIUM Expires at 2039 on: [id number] CERNER MILLENNIUM Blood specimen (specimen) 05/26/2014 12:40 PM EST 05/26/2014 12:59 PM EST Narrative Resulting Agency Comment Spec In Lab S Alek Burciaga MD BLOOD BANK LAB ORDER MYRANDA LINDA BASHIR * ABO/Rh Typing (05/26/2014 12:40 PM EST) ABORH Type O Pos LINDA BASHIR Blood specimen (specimen) 05/26/2014 12:40 PM EST 05/26/2014 12:59 PM EST Narrative Resulting Agency Comment Spec In Lab S Alek Burciaga MD BLOOD BANK LAB ORDER MYRANDA Performing Organization Address [facility] Co de Phone Number LINDA BASHIR * [...] areas of greatestartifact. S Alek Burciaga MD IMG CT ORDERABLES * Differential, Automated (05/26/2014 4:15 [...] ORDERABLE S CERNER MILLENNIUM * (ABNORMAL) Hemogram (05/26/2014 4:15 AM EST) Pathologist [facility] WBC 7.4 4.0 - 10.0 x10(3)/mcL CERNER [...] BASHIR * (ABNORMAL) Basic Metabolic Panel (non-fasting) (05/26/2014 4:15 AM EST) [facility] Glucose Lvl 88 60 - 199 mg/dL CERNER MILLENNIUM Comment:Diabetes: >=200 mg/d L plus symptoms BUN 6(L) 8 - 18 mg/dL CERNER MILLENNIUM Creatinine 0.28(L) 0.70 - 1.20 mg/dL CERNER MILLENNIUM Comment: Please note that the pediatric reference intervals supplied above were not validated at [facility]. Results from pediatric patients should be interpreted [...] the following links into your internet browser. [email or web address] Blood specimen (specimen) 05/26/2014 4:15 AM EST 05/26/2014 4:35 AM EST Narrative Resulting Agency Comment Spec In Lab S Alek Burciaga MD CHEMISTRY ORDERABLES LINDA BASHIR * Place PICC Line: Contact Vascular Access Page [phone] (05/25/2014 4:01 PM EST) Narrative Iron Aden, EUNICE - 05/25/2014 4:01 PM EST Iron Aden, [...] to the planned procedure. Hand Hygiene: The ambulance assistant did perform hand hygiene prior to line insertion. Catheter type: PICC Lot number: [id number] Procedure Technique: Skin was prepped with chlorhexidine. [...] focal. COMPARISON: Scoliosis radiographs from 12/16/2011 FINDINGS: Associate Publisher views demonstrate severe rightward scoliotic deformity centered [...] No gross collections in the cervical spine. Associate Publisher coronal image 8 of series 8 demonstrates extensive supratentorial parenchymal loss in the left hemisphere not completely characterized on this exam. Thoracic spine: Metallic artifact obscures much of the cord and posterior elements. No aggressive appearing marrow lesions are seen in the visualized thoracic spine. Visualized Disc spaces are normal. Procedure Note Andrade Roth MD - 05/25/2014 EXAMINATION: MR Amanda and thoracic WO Johnny CLINICAL HISTORY: wound infection s/p harware removel. ? intrathecal inf,focal. COMPARISON: Scoliosis radiographs from 12/16/2011 FINDINGS: Associate Publisher views demonstrate severe rightward scoliotic deformity centered [...] abnormalities. No grosscollections in the cervical spine. Associate Publisher coronal image 8 of series 8 demonstrates [...] by the attending S Alek Burciaga MD [facility] MRI ORDERABLES * MRI thoracic spine without contrast (05/25/2014 1:26 PM EST) Anatomical Region Laterality Modality T-spine Magnetic Resonan ce 05/25/2014 1:26 PM EST Narrative 05/25/2014 4:10 PM EST See accession #[id number] for dictation of this study. This report was reviewed by Andrade Rebolledo MD at 05/25/2014 4:05 PM Film and interpretation reviewed by the attending Procedure Note Andrade Roth MD - 05/25/2014 See accession #[id number] for dictation of this study. This report was reviewed by Andrade Rebolledo MD at 05/25/2014 4:05 PM Film and interpretation reviewed by the attending Alek Sinha APRN IMG MRI ORDERABLES * Differential, Automated (05/25/2014 [...] S Alek Burciaga MD [facility]OLOG[facility] * (ABNORMAL) Basic Metabolic Panel (non-fasting) (05/25/2014 5:00 AM EST) [facility] Glucose Lvl 87 60 - 199 mg/dL [facility] Comment:Diabetes: >=200 mg/d L plus symptoms BUN 6(L) 8 - 18 mg/dL CERNER MILLENNIUM Creatinine 0.27(L) 0.70 - 1.20 mg/dL CERNER MILLENNIUM Comment: Please note that the pediatric reference intervals supplied above were not validated at [facility]. Results from pediatric patients should be interpreted [...] the following links into your internet browser. [email or web address] Blood specimen (specimen) 05/25/2014 5:00 AM EST [...] Agency Comment Spec In Lab S Alek uBrciaga MD HEMATOLOGY ORDERABLE S LINDA KEMPIUM * (ABNORMAL) Basic Metabolic Panel (non-fasting) (05/24/2014 12:42 PM EST) Glucose Lvl 78 60 - 199 mg/dL CERNER MILLENNIUM Comment:Diabetes: >=200 mg/d L plus symptoms BUN 4(L) 8 - 18 mg/dL CERNER MILLENNIUM Comment:result rechecked-[facility] Creatinine 0.39(L) 0.70 - 1.20 mg/dL CERNER MILLENNIUM Comment: Please note that the pediatric reference intervals supplied above were not validated at [facility]. Results from pediatric patients should be interpreted [...] the following links into your internet browser. [email or web address] Blood specimen (specimen) 05/24/2014 12:42 PM EST 05/24/2014 12:42 PM EST Narrative Resulting Agency Comment Spec In Lab Freddy Burciaga MD CHEMISTRY ORDERABLES Performing Organization Address [facility] de Phone Number CERNER THOMENNIUM * Vancomycin, trough (05/24/2014 12:29 PM EST) [...] Burciaga MD CHEMISTRY ORDERABLES Performing Organization Address [facility] de Phone Number CERNER MILLENNIUM * (ABNORMAL) Electrolytes panel (05/23/2014 12:30 AM [...] Burciaga MD CHEMISTRY ORDERABLES Performing Organization Address [facility] Co de Phone Number CERALIN MILLENNIUM * (ABNORMAL) Electrolytes panel (05/22/2014 6:20 [...] Burciaga MD CHEMISTRY ORDERABLES Performing Organization Address City/[facility]/ZIP Co de Phone Number CERNER MILLENNIUM * (ABNORMAL) Phosphorus (05/22/2014 12:45 PM EST) Phosphorus 2.2(L) 2.5 - 4.5 mg/dL CERNER MILLENNIUM Blood specimen (specimen) Venous Draw / Unknown 05/22/2014 12:45 PM EST 05/22/2014 1:03 PM EST Narrative Resulting Agency Comment Spec In Lab Lucho Smith MD CHEMISTRY ORDERABLES Performing Organization Address City/[facility] Co de Phone Number CERNER MILLENNIUM * Magnesium (05/22/2014 12:45 PM EST) Magnesium 0.69 0.69 - 1.07 mmol/L CERNER MILLENNIUM Blood specimen (specimen) Venous Draw / Unknown 05/22/2014 12:45 PM EST 05/22/2014 1:03 PM EST Narrative Resulting Agency Comment Spec In Lab Lucho Smith MD CHEMISTRY ORDERABLES CERNER MILLENNIUM * Lipase (05/22/2014 12:45 PM EST) Lipase 44 0 - 60 unit/L CERNER MILLENNIUM Blood specimen (specimen) 05/22/2014 12:45 PM EST 05/22/2014 1:03 PM EST Narrative Resulting Agency Comment Spec In Lab Lucho Smith MD CHEMISTRY ORDERABLES Performing Organization Address [facility] Co de Phone Number CERNER MILLENNIUM * Amylase (05/22/2014 12:45 PM EST) Amylase 89 28 - 100 unit/L CERNER MILLENNIUM Blood specimen (specimen) 05/22/2014 12:45 PM EST 05/22/2014 1:03 PM EST Narrative Resulting Agency Comment Spec In Lab Lucho Smith MD CHEMISTRY ORDERABLES Performing Organization Address [facility] Co de Phone Number CERNER MILLENNIUM * (ABNORMAL) Comprehensive metabolic panel (non-fasting) (05/22/2014 12:45 PM EST) Glucose Lvl 81 60 - 199 mg/dL CERNER MILLENNIUM Comment:Diabetes: >=200 mg/d L plus symptoms BUN 2(L) 8 - 18 mg/dL CERNER MILLENNIUM Creatinine 0.31(L) 0.70 - 1.20 mg/dL CERNER MILLENNIUM Comment: Please note that the pediatric reference intervals supplied above were not validated at [facility]. Results from pediatric patients should be interpreted [...] the following links into your internet browser. [email or web address] Blood specimen (specimen) 05/22/2014 12:45 PM EST 05/22/2014 1:03 PM EST Narrative Resulting Agency Comment Spec In Lab Lucho Smith MD CHEMISTRY ORDERABLES [facility]ER[facility] MILLENNIUM * Differential, Automated (05/22/2014 6:10 AM [...] MD HEMATOLOGY ORDERABLE S Performing Organization Address [facility] Co de Phone Number LINDA BASHIR * Vancomycin, trough (05/22/2014 6:10 AM EST) [...] Burciaga MD CHEMISTRY ORDERABLES Performing Organization Address [facility] de Phone Number LINDA BASHIR * (ABNORMAL) Basic Metabolic Panel (non-fasting) (05/22/2014 6:10 AM EST) Glucose Lvl 86 60 - 199 mg/dL CERNER MILLENNIUM Comment:Diabetes: >=200 mg/d L plus symptoms BUN 3(L) 8 - 18 mg/dL CERNER MILLENNIUM Creatinine 0.27(L) 0.70 - 1.20 mg/dL CERNER MILLENNIUM Comment: Please note that the pediatric reference intervals supplied above were not validated at [facility]. Results from pediatric patients should be interpreted in conjunction to the patient's age, height and muscle mass. Sodium 141 135 - 145 mmol/L [facility] Potassium 2.9(Criti dean) 3.5 - 5.0 [...] the following links into your internet browser. [email or web address] Blood specimen (specimen) 05/22/2014 6:10 AM EST [...] BASHIR * (ABNORMAL) Basic Metabolic Panel (non-fasting) (05/21/2014 4:23 AM EST) Glucose Lvl 107 60 - 199 mg/dL CERNER MILLENNIUM Comment:Diabetes: >=200 mg/d L plus symptoms BUN 3(L) 8 - 18 mg/dL CERNER MILLENNIUM Comment:result rechecked- ll u Creatinine 0.30(L) 0.70 - 1.20 mg/dL CERNER MILLENNIUM Comment: Please note that the pediatric reference intervals supplied above were not validated at [facility]. Results from pediatric patients should be interpreted [...] the following links into your internet browser. [email or web address] Blood specimen (specimen) 05/21/2014 4:23 AM EST 05/21/2014 4:38 AM EST Narrative Resulting Agency Comment Spec In Lab Authorizing Provider Result Bala Burciaga MD CHEMISTRY ORDERABLES LINDA BASHIR * Machine Skiver Culture (05/20/2014 10:01 PM EST) Machine Skiver Culture ? Patient Name: TANA SHELTON ? Ordered By: Freddy BURCIAGA ? MR#: [id number] ?LOC: ??[place] ? /Sex: ??1995 (18 years), ? Female ? PROCEDURE: Machine Skiver Culture ?SOURCE: Other ? COLLECTED: 05/20/2014 22:01 [...] ? Ordered By: Freddy BURCIAGA ? MR#: [id number] ?LOC: ??[place] ? /Sex: ??1995 (18 years), [...] ? Ordered By: Freddy BURCIAGA ? MR#: [id number] ?LOC: ??[place] ? /Sex: ??1995 (18 years), [...] ? Patient: TANA SHELTON S ? MR#: [id number] ? S=Susceptible ??I=Intermediate ??R=Resistant ??NA=Not Applicable ? [...] ? Ordered By: Freddy BURCIAGA ? MR#: [id number] ?LOC: ??[place] ? /Sex: ??1995 (18 years), [...] ? Ordered By: Freddy BURCIAGA ? MR#: [id number] ?LOC: ??[place] ? /Sex: ??1995 (18 years), [...] species ? Susceptibilities previously reported ? LINDA THOMCHRISTINAIUM Structure of back of trunk (body structure) 05/20/2014 8:20 PM EST 05/20/2014 10:12 PM EST Comment:LUMBAR WOUND CULTURE Narrative Resulting Agency Comment Spec In Lab S Alek Burciaga MD MICROBIOLOGY - GENER AL ORDERABLES LINDA BASHIR * Urine culture First Catch Urine (05/20/2014 6:46 PM EST) Urine Culture ? Patient Name: TANA SHELTON ? Ordered By: BELKIS LOUIE ? MR#: [id number] ?LOC: ??[place] ? /Sex: ??1995 (18 years), ? Female ? PROCEDURE: Urine Culture ?SOURCE: [facility] ? COLLECTED: 05/20/2014 18:46 ? STARTED: [...] Louie MD MICROBIOLOGY - GENER AL ORDERABLES LINDA BASHIR * (ABNORMAL) Urinalysis with microscopic (05/20/2014 6:46 [...] Appearance UA Hazy(A) Clear CERNER MILLENNIUM Spec [place] UA 1.026 1.002 - 1.030 CERNER MILLENNIUM [...] In Lab Belkis Louie MD URINE ORDERABLES LINDA BASHIR * L-Lactate2 Whole Blood (05/20/2014 6:17 PM EST) Lactate WB 1.6 0.5 - 2.2 mmol/L CERNER MILLENNIUM Blood specimen (specimen) 05/20/2014 6:17 PM EST 05/20/2014 6:17 PM EST Belkis Louie MD CHEMISTRY ORDERABLES LINDA BASHIR * Blood culture (05/20/2014 6:00 PM EST) Blood Culture ? Patient Name: TANA SHELTON ? Ordered By: BELKIS LOUIE ? MR#: [id number] ?LOC: ??[place] ? /Sex: ??1995 (18 years), [...] Louie MD MICROBIOLOGY - BLOOD ORDERABLES LINDA TOMASENNIUM * Green Tube HOLD (05/20/2014 5:15 PM EST) Green Hold Sample in lab. CERALIN TOMASENNIUM Blood specimen (specimen) Venous Draw / Unknown 05/20/2014 5:15 PM EST 05/20/2014 5:32 PM EST Belkis Louie MD CHEMISTRY ORDERABLES LINDA KEMPIUM * Differential, Automated (05/20/2014 5:15 [...] MD HEMATOLOGY ORDERABLE S Performing Organization Address [facility] de Phone Number LINDA KEMPIUM * (ABNORMAL) Hemogram (05/20/2014 5:15 PM EST) [...] MD HEMATOLOGY ORDERABLE S Performing Organization Address [facility] de Phone Number LINDA KEMPIUM * Blood culture (05/20/2014 5:15 PM EST) Blood Culture ? Patient Name: TANA SHELTON ? Ordered By: BELKIS LOUIE ? MR#: [id number] ?LOC: ??[place] ? /Sex: ??1995 (18 years), [...] days. ? CERNER MILLENNIUM Blood specimen (specimen) STRUCTURE OF LEFT HAND / Unknown 05/20/2014 5:15 PM EST 05/20/2014 7:17 PM EST Comment:HOLD UNTIL MD HULL Narrative Resulting Agency Comment Spec In Lab Belkis Louie MD MICROBIOLOGY - BLOOD ORDERABLES Performing Organization Address City/State/[facility] Co de Phone Number [facility] * Glucose, random (05/20/2014 5:15 PM EST) Glucose Lvl 81 60 - 199 mg/dL [facility] Comment:Diabetes: >=200 mg/d L plus symptoms Blood specimen (specimen) 05/20/2014 5:15 PM EST 05/20/2014 5:31 PM EST Narrative Resulting Agency Comment Spec In Lab Belkis Louie MD CHEMISTRY ORDERABLES LINDA BASHIR * (ABNORMAL) Creatinine (05/20/2014 5:15 PM EST) Creatinine 0.37(L) 0.70 - 1.20 mg/dL [facility] Comment: Please note that the pediatric reference intervals supplied above were not validated at [facility]. Results from pediatric patients should be interpreted in conjunction to the patient's age, height and muscle mass. Estimated GFR >60 >=60 [facility] Comment: This estimated GFR (eGFR) value [...] the following links into your internet browser. [email or web address] [email or web address] Blood specimen (specimen) 05/20/2014 5:15 PM EST 05/20/2014 5:31 PM EST Narrative Resulting Agency Comment Spec In Lab Belkis Louie MD CHEMISTRY ORDERABLES Performing Organization Address [facility] Phone Number [facility] * BUN (05/20/2014 5:15 PM EST) BUN 9 8 - 18 mg/dL [facility] Blood specimen (specimen) 05/20/2014 5:15 PM EST 05/20/2014 5:31 PM EST Narrative Resulting Agency Comment Spec In Lab Belkis Louie MD CHEMISTRY ORDERABLES Performing Organization Address [facility] Phone Number [facility] * (ABNORMAL) Electrolytes panel (05/20/2014 5:15 PM EST) Sodium 138 135 - 145 mmol/L [facility] Potassium 3.7 3.5 - 5.0 mmol/L [facility] Comment: Please note: ??Patients with WBC [...] Belkis Louie MD CHEMISTRY ORDERABLES LINDA BASHIR documented in this encounter Visit Diagnoses Not on filedocumented in this encounter Administered Medications Inactive Administered Medications - up to 3 most recent administrations Medication Order MAR Action Action Date Dose Rate Site bacitracin injection ONCE PRN, Starting on Thu05/26/14 at 1644, Until Thu05/26/14 at 1852, Intra-Operative (Intra-Procedure), Routine Given 05/26/2014 4:44 PM EST 10,000 Units 19- Surgical Site bacitracin-polymyxin b (POLYSPORIN) ointment ONCE PRN, Starting on Thu05/26/14 at 1714, Until Thu05/26/14 at 1852, Intra-Operative (Intra-Procedure) Given 05/26/2014 5:14 PM EST 1 Tube 19- Surgical Site documented in this encounter Active and Recently Administered Medications Times are shown in EST. 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 0616 (Given - Provider: Linsey Mcintyre RN)1446 (Given - Provider: Dolores Patino RN)220 (Given - Provider: Linsey Mcintyre RN) 0627 (Given - Provider: Linsey Mcintyre RN)1410 (Given - Provider: Tasha Yu)2241 (Given - Provider: Margot Monzon RN) 0557 [...] Monzon RN) 0831 (Given - Provider: Hedy Vazquez, EUNICE) diaZEPam (VALIUM) 5 mg/5 mL (5 mL) oral solution 5 mg (CANCELED) 5 mg, Oral, 2 TIMES DAILY, First dose on 05/20/14 at 2245, Until Discontinued, Routine 09 (Not Given - Provider: Dolores Patino RN - Reason: Patient/family refused - Comment: Mom refusing)2050 (Given - Provider: Linsey Mcintyre RN) 09 (Not Given - Provider: Dolores Patino RN [...] 1 tablet, Oral, DAILY, First dose on 05/21/14 at 0900, Until Discontinued, Pt may use own med, Routine 180 (Given - Provider: Dolores Patino RN) 182 (Given - Provider: Dolores Patino RN) nystatin (MYCOSTATIN) cream (CANCELED) Topical, 2 TIMES DAILY, First dose on Thu05/31/14 at 0900, Until Discontinued 1000 (Given - Provider: Dolores Patino RN)2099 (Given - Provider: Linsey Mcintyre RN) 09 (Given - Provider: Dolores Patino RN)2010 (Given - Provider: Margot Monzon RN) 0836 (Given - Provider: Hedy Vazquez, EUNICE) polyethylene glycol (MIRALAX) packet 17 g (CANCELED) 17 g, Oral, DAILY, First dose on 05/21/14 at 0900, Until Discontinued 958 (Given - Provider: Dolores Patino RN) 1003 [...] Dolores Patino RN)1758 (Given - Provider: Dolores Patino, EUNICE) 0142 (Given - Provider: Linsey Mcintyre, EUNICE)1027 (Given - Provider: Yas Cam RN)1817 (Given - Provider: Dolores Patino, EUNICE) 0120 (Given - Provider: Margot Monzon RN)0836 [...] RN) 1705 (New Bag - Provider: Dolores Patino, EUNICE) 1500 (Stopped - Provider: Elmer Cotto RN) PRN Medication Order 05/31/2014 06/01/201406/02/2014 acetaminophen (TYLENOL) suppository 650 mg (CANCELED)(Linked Group [...] Order Reminder () NOT APPLICABLE, ONCE, On Thu05/28/14 at 0915, 1 dose, This alert will [...] Routine documented in this encounter Care Teams Rail Operations Controller Relationship Specialty Start Date End Date Naina Lindsey MD [address] [place] [address] PCP - General 03/19/10 08/25/16 documented as of this encounter
--- OUTSIDE RECORDS SUMMARY | 2023-11-09 18:18 | XMS_ITS | Encounter Summary ---
Author Organization [facility] [place] [address] Care Team Providers Care Adult Education Professional Name Role Phone Naina Lindsey MD Primary Care Provider [phone] Encounter Details Date Type Department Care Team (Late st Contact Info) Description 05/20/2014 8:18 PM EST Anesthesia [place] [id number] Eli Alexander MD [facility] [place] [address] Neva Gómez MD [facility] [place] [address] Anesthesia Record Procedure Summary Procedure Name Responsible Anesthesiologist Anesthesia Start Time Anesthesia Stop Time @I & D, OPEN, DEEP ABSCESS, LUMBAR, SACRAL, LUMBOSACRAL (WRVU 12.64) (Back) Eli Alexander MD 05/20/14201705/20/14 2353 Events Date Time Event Comment 05/20/20142010 Start 2020 AN Verify 2019 An Start Data 2019 An Start Data 2026 An Induction 2028 An Intubation 2058 Anesthesia Ready 2114 Procedure Start 2214 Quick Note Patient without any twitches on nerve stimulator. Decision made to transfer to the PACU intubated and allow rocuronium to wear off there. 2353 Extubation/LMA Out 2353 an stop data 235 Stop 235 Quick Note Patient extubat ed in the PACU after reversal of neuromuscular blockade. Uneventful extubation. Meds Name Total fentaNYL 50 mcg Propofol 180 mg Rocuronium 100 mg PHENYLephrine 240 mcg Ondansetron 4 mg Dexamethasone 4 mg Neostigmine 4 mg Glycopyrrolate 0.8 mg cefTRIAXone 1 g Propofol INF 245.62 mg Lactated Ringers 700 mL * Agents Name O2 Air Sevoflurane (et) * Blood No blood administrations [...] (RETIRED) Peripheral IV Line - Single Lumen 05/20/14; 1800; jugular vein, external left (neck); vocw-ort-hwfrzy catheter system; 18 gauge, 1 in length; Dr. Louie; distraction; lying on neck already out.; removed inadvertently, other (see comments); 05/23/14; 0735 05/20/14 1800 by Ryann Feliz RN 05/23/14 0735 by Marie Figueroa RN ETT Mask Ventilation: No t Attempted (0); ETT Type: Cuffed, Oral; ETT Size: 7 mm; Mac Blade: 3; Notes: Asleep, Pre-O2, RSI, Cricoid Pressure; Attempts: 1; Laryngoscopy Grade: 1; ETT Placement Verified By: Auscultation, Capnometry; Secured at Teeth: 22 cm; Inserted by: Vern; Removal Date: 05/20/14; Removal Time: 235205/20/142028 by Pantera Laguna MD 05/20/142352 by Neva Gómez MD Urethral Catheter 05/20/14; 2100; indwelling double lumen catheter; 100% silicone; 16; inserted at this facility; 1; 10; 10; other (see comments) (pt under general anesthesia at time of insertion); drainage bag to dependent drainage; 05/21/14; 1630 05/20/14 2100 by Andrade Oh RN 05/21/14 163 by Nathalie Barnett RN documented in this encounter Social History [...] OR Notes * Anesthesia Postprocedure Evaluation - VernEmilyqamar Dumont - 05/21/2014 12:01 AM EST Patient: Tana Cavazos Procedure(s) Performed: Procedure(s): @I & D, OPEN, DEEP ABSCESS, LUMBAR, SACRAL, LUMBOSACRAL @REPAIR DURAL\CSF LEAK,NOT REQUIRING LAMINECTOMY Actual Anesthetic: general Patient location: PACU Post-op pain: Adequate analgesia, crying but per mom does not feel she is in pain. Post-op nausea: no nausea or vomiting Last Vitals: Filed Vitals: 05/20/14 2356 BP: Pulse: Temp: Resp: 19 Post-op cardiovascular and respiratory status: is stable. Uneventful extubation in the PACU after reversal of neuromuscular blockade. Level of consciousness: awake and alert, baseline cognitive function. Complications: no apparent complications and tolerated the procedure well Fluid Status: normal * Anesthesia Preprocedure Evaluation - Pantera Laguna MD - 05/20/2014 7:54 PM EST Pre-Anesthesia Evaluation for: Tana Cavazos [...] HEAD, BILATERAL performed by BARRERA OLIVER [facility] MAIN OR ??? Apply of hip casts, two legs 08/15/2010 CAST APPLICATION, HIP SPICA, BOTH LEGS performed by BARRERA OLIVER at [facility] MAIN OR ??? Removal deep implant 08/15/2010 REMOVAL IMPLANT, DEEP, BRUNO performed by BARRERA OLIVER at [facility] MAIN OR ??? Osteotomy femur shaft/supracondy 08/15/2010 ??OSTEOTOMY, FEMUR SHAFT OR SUPRACONDYLAR W/O FIXATION performed by BARRERA OLIVER at [facility] MAIN OR ??? Remove spinal canal catheter N/A 05/11/2014 REMOVAL OF INTRATHECAL OR EPIDURAL CATHETER performed by Jamaal Samuel MD at [facility] MAIN OR ??? Remove infusn device/pump N/A 05/11/2014 REMOVAL OF SPINE INFUSION PUMP performed by Jamaal Samuel MD at [facility] MAIN OR History Substance Use Topics ??? Smoking status: Never Smoker ??? Smokeless tobacco: Never Used Comment: NO SMOKERS IN THE HOME ??? Alcohol Use: No History Drug Use No Allergies Allergen Reactions ??? Fluoxetine Other (See Comments) HIVES, HEART RACES Medications: MAR and/or home medications have been reviewed. Physical Exam: Filed Vitals: 05/20/14 1845 BP: 124/61 Pulse: 153 Temp: Resp: 24 Body mass index is 19.85 kg/(m^2). 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 Standard ASA monitors, GETA prone. Region - Other Informed Consent: Anesthetic plan and risks discussed with mother. Plan discussed with attending. Misc. Assessment: documented in this encounter Plan of Treatment Upcoming Encounters Date Type Department Care Team (Late st Contact Info) Description 11/19/2023 2:30 PM EDT TH Visit (TeleHealth) [place] [phone] Lilli Joy APRN [facility] [place] [address] 11/30/2023 12:50 PM EDT Appointment [place] [phone] 12/03/2023 12:30 PM EDT Office [place] [address] Hollie Ambriz MD [facility] [place] [address] documented as of this encounter Visit Diagnoses Not on filedocumented in this encounter Administered Medications Inactive Administered Medications - up to 3 most recent administrations Medication Order MAR Action Action Date Dose Rate Site cefTRIAXone (ROCEPHIN) injection PRN, Starting on 05/20/14 at 2120, Until 05/20/14 at 2353, Anesthesia Intra-op, Routine Given 05/20/2014 9:20 PM EST 1 g dexamethasone (DECADRON) injection PRN, Starting on 05/20/14 at 2223, Until 05/20/14 at 2353, Anesthesia Intra-op, Routine Given 05/20/2014 10:23 PM EST 4 mg fentaNYL 50mcg/mL injection PRN, Starting on 05/20/14 at 2146, Until 05/20/14 at 2353, Pain, Anesthesia Intra-op, Routine Given 05/20/2014 9:59 PM EST 25 mcg Given 05/20/2014 9:46 PM EST 25 mcg glycopyrrolate (ROBINUL) injection PRN, Starting on 05/20/14 at 2347, Until 05/22/14 at 1039, Anesthesia Intra-op, Routine Given 05/20/2014 11:47 PM EST 0.8 mg lactated ringers infusion CONTINUOUS PRN, Starting on 05/20/14 at 2018, Until 05/20/14 at 2353, Anesthesia Intra-op New Bag 05/20/2014 8:18 PM EST neostigmine (PROSTIGMINE) injection PRN, Starting on 05/20/14 at 2347, Until 05/22/14 at 1039, Anesthesia Intra-op, Routine Given 05/20/2014 11:47 PM EST 4 mg ondansetron (ZOFRAN) injection PRN, Starting on 05/20/14 at 2346, Until 05/22/14 at 0614, Nausea, Anesthesia Intra-op, Routine Given 05/20/2014 11:46 PM EST 4 mg PHENYLephrine HCl in NS (PF) (TONI-SYNEPHRINE) 0.8 mg/10 mL (80 mcg/mL) injection Syrg PRN, Starting on 05/20/14 at 2055, Until 05/20/14 at 2353, Anesthesia Intra-op, Routine Given 05/20/2014 9:31 PM EST 80 mcg Given 05/20/2014 8:55 PM EST 80 mcg Given 05/20/2014 8:33 PM EST 80 mcg propofol (DIPRIVAN) 10 mg/mL bolus injection (Anesthesia) PRN, Starting on 05/20/14 at 2027, Until 05/20/14 at 2353, Anesthesia Intra-op Given 05/20/2014 8:27 PM EST 180 mg propofol (DIPRIVAN) infusion CONTINUOUS PRN, Starting on 05/20/14 at 2137, Until 05/20/14 at 2353, Anesthesia Intra-op, Routine Rate/Dose Change 05/20/2014 10:18 PM EST 50 mcg/kg/min 14.3 mL/hr New Bag 05/20/2014 9:37 PM EST 10 mcg/kg/min 2.9 mL/hr rocuronium (ZEMURON) injection PRN, Starting on 05/20/14 at 2027, Until 05/20/14 at 2353, Anesthesia Intra-op, Routine Given 05/20/2014 8:27 PM EST 100 mg documented in this encounter Care Teams Adult Education Professional Relationship Specialty Start Date End Date Naina Lindsey MD [address] [place] [address] PCP - General 03/19/10 08/25/16 documented as of this encounter
--- OUTSIDE RECORDS SUMMARY | 2023-11-09 18:18 | XMS_ITS | Encounter Summary ---
Author Organization [facility] [place] [address] Care Team Providers Care Molded Grid And Parts Inspector Name Role Phone Naina Lindsey MD Primary Care Provider [phone] Encounter Details Date Type Department Care Team (Latest Contact Info) Description 05/11/2014 6:28 AM EST - 05/12/2014 6:08 PM EST Hospital Encounter [place] [address] Juan Samuel MD [facility] [address] [place] [address] Presence of intrathecal baclofen pump; Pre-op evaluation Discharge Disposition: Home with [facility] Social History [...] Sign Reading Time Taken Comments Blood Pressure 96/54 05/12/2014 11:46 AM EST Pulse 118 05/12/2014 11:46 AM EST Temperature 36.8 ??C (98.2 ??F) 05/12/2014 11:[address] Respiratory Rate 22 05/12/2014 11:46 AM EST Oxygen Saturation 99% 05/12/2014 11:46 AM EST Inhaled Oxygen Concentration - - Weight 47.6 kg (105 lb) 05/11/2014 7:06 AM EST Height 154.9 cm (5' 0.98) 05/11/2014 7:06 AM ES T Body Mass Index 19.85 05/11/2014 7:06 AM EST documented in this encounter Discharge Summaries * Alek Sinha, HOSPICE CASE MANAGER - 05/12/2014 12:41 PM EST Baclofen Discharge Summary Patient Name: Tana Shelton Patient Age: 18 y.o. Birthdate:1995 Admit date: 05/11/2014 Discharge date and time: 05/12/2014 Attending Physician: Juan Samuel Primary Diagnosis: Spasticity History of Presentation: Tana is a 18 year old girl with a history of increased tone which was managed with intrathecal baclofen. She underwent placement of an intrathecal baclofen pump in 2007 at the [facility]. Mother feels that the pump has not been helpful in treating Tana's tone. She has been followed by [facility] who has weaned Tana off of her baclofen. For this we have been asked to explant her pump. Procedures: 05/11/2014: Explant of intrathecal pump and intrathecal catheter. Hospital Course: Tana was admitted for removal of her Baclofen pump which she tolerated very well. She was admittedto the pediatric floor following surgery for post-op care and has remained on the floor for 24 hours. She is now tolerated a regular diet, she has been out of bed to her chair, and her pain is well controlled with oral pain medicines. She was observed for on the pedi floor post-op for 24hr and was discharged home on post-op day 2 in stable condition. Important lab data: No results found for this or any previous visit (from the past 24 hour(s)). Condition at discharge: stable DISCHARGE INSTRUCTIONS: Activity: No limitations x Avoid contact sports and other rough activities until seen in follow-up Medications at discharge: Your Medications New Medications Dose Details acetaminophen 650 mg/20.3 mL Soln Commonly known as: TYLENOL Take 22.3 mLs by mouth every 6 hours. 15 mg/kg/dose Refills: 0 diaZEPam 5 mg/5 mL (5 mL) Soln Commonly known as: VALIUM Take 5 mLs by mouth 2 times daily. 5 mg Quantity: 100 mL Refills: 0 oxyCODONE 5 mg Tab Commonly known as: ROXICODONE Take 1-2 tablets by mouth every 4 hours as needed for Pain (PAIN) for up to 30 days. 5-10 mg Quantity: 30 tablet Refills: 0 Continued medications, unchanged Dose Details baclofen 10 mg Tab Commonly known as: LIORESAL 10 MG = 1 Tablet(s), PO, QPM Refills: 0 ibuprofen 100 mg/5 mL Susp Commonly known as: ADVIL;MOTRIN 300 mg, PO, Q6H prn Refills: 0 INTROVALE 0.15-30 mg-mcg 3mpk Take 1 tablet by mouth daily. Generic drug: levonorgestrel-ethinyl estradiol 1 tablet Refills: 0 MIRALAX ORAL Take by mouth daily. Refills: 0 Diet: Regular Wound care: Incision/dressings: If your child has dressings (bandages) on their incisions, keep these on for 2 days after surgery, then you may remove them. Some incisions may have small paper tapes (Steri-strips) which should not be removed, but will fall off on their own. Shower/Bath: She may resume sponge baths beginning 3 days after surgery. Showers may be resumed in 7 days after surgery. After this, you can get them wet in the shower, but do not submerge the incision under water in a bathtub, hot tub, or go swimming for 6 weeks after surgery. Sutures: Your sutures are dissolvable and will disappear in 2-3 weeks after surgery Things to Watch For:C all your doctor for any of the following: - Excessive sleepiness - Dizziness, lightheaded - Slow or shallow breathing - Vomiting - Weakness or difficulty moving arms or legs - Increased spasticity - Double vision or other new vision problems - Child isn't himself - Redness or swelling at the incisions - Fever over 100.5 degrees F - Abdominal pain - Child has symptoms which have occurred with previous shunt problems - Anything else that concerns you about how your child looks or is acting Follow-up appointments: Call Pediatric Neurosurgery , Thursday through Thursday 8 am to 5 pm, to schedule your child???s follow-up appointment in 2 weeks. Your attending pediatric neurosurgeon is Benjamin Glass Emergency contact: After hours and weekends, call the [facility] cover making machine operator at and ask them to page the neurosurgery resident business control specialist. documented in this encounter Discharge Instructions * Patient Instructions* Alek Sinha, HOSPICE CASE MANAGER - 05/12/2014 2:54 PM EST Images from the original note were not included. DISCHARGE INSTRUCTIONS: Activity: No limitations x Avoid contact sports and other rough activities until seen in follow-up Medications at discharge: Your Medications New Medications Dose Details acetaminophen 650 mg/20.3 mL Soln Commonly known as: TYLENOL Take 22.3 mLs by mouth every 6 hours. 15 mg/kg/dose Refills: 0 diaZEPam 5 mg/5 mL (5 mL) Soln Commonly known as: VALIUM Take 5 mLs by mouth 2 times daily. 5 mg Quantity: 100 mL Refills: 0 oxyCODONE 5 mg Tab Commonly known as: ROXICODONE Take 1-2 tablets by mouth every 4 hours as needed for Pain (PAIN) for up to 30 days. 5-10 mg Quantity: 30 tablet Refills: 0 Continued medications, unchanged Dose Details baclofen 10 mg Tab Commonly known as: LIORESAL 10 MG = 1 Tablet(s), PO, QPM Refills: 0 ibuprofen 100 mg/5 mL Susp Commonly known as: ADVIL;MOTRIN 300 mg, PO, Q6H prn Refills: 0 INTROVALE 0.15-30 mg-mcg 3mpk Take 1 tablet by mouth daily. Generic drug: levonorgestrel-ethinyl estradiol 1 tablet Refills: 0 MIRALAX ORAL Take by mouth daily. Refills: 0 Diet: Regular Wound care: Incision/dressings: If your child has dressings (bandages) on their incisions, keep these on for 2 days after surgery, then you may remove them. Some incisions may have small paper tapes (Steri-strips) which should not be removed, but will fall off on their own. Shower/Bath: She may resume sponge baths beginning 3 days after surgery. Showers may be resumed in 7 days after surgery. After this, you can get them wet in the shower, but do not submerge the incision under water in a bathtub, hot tub, or go swimming for 6 weeks after surgery. Sutures: Your sutures are dissolvable and will disappear in 2-3 weeks after surgery Things to Watch For:C all your doctor for any of the following: - Excessive sleepiness - Dizziness, lightheaded - Slow or shallow breathing - Vomiting - Weakness or difficulty moving arms or legs - Increased spasticity - Double vision or other new vision problems - Child isn't himself - Redness or swelling at the incisions - Fever over 100.5 degrees F - Abdominal pain - Child has symptoms which have occurred with previous shunt problems - Anything else that concerns you about how your child looks or is acting Follow-up appointments: Call Pediatric Neurosurgery , Thursday through Thursday 8 am to 5 pm, to schedule your child???s follow-up appointment in 2 weeks. Your attending pediatric neurosurgeon is Benjamin Glass Emergency contact: After hours and weekends, call the [facility] cover making machine operator at and ask them to page the neurosurgery resident business control specialist. Revision History 05/12/2014 2:54 PM Alek Sniha APRN Nurse Practitioner Addend 05/12/2014 1:25 PM Alek Sinha APRN Nurse Practitioner Sign 05/12/2014 12:53 PM Alek Sinha APRN Nurse Practitioner Share View Details Report documented in this encounter Medications at Time of Discharge Medication Sig Dispensed Refills Start Date End Date acetaminophen (TYLENOL) 650 mg/20.3 mL Solution Take 22.3 mLs by mouth every 6 hours. 05/12/2014 11/24/2016 oxyCODONE (ROXICODONE) 5 mg Tablet Take 1-2 tablets by mouth every 4 hours as needed for Pain (PAIN) for up to 30 days. 30 tablet 0 05/12/2014 06/02/2014 diaZEPam (VALIUM) 5 mg/5 mL (5 mL) Solution Take 5 mLs by mouth 2 times daily. 100 mL 0 05/12/2014 11/24/2016 levonorgestrel-ethinyl estradiol (INTROVALE) 0.15-30 mg-mcg per tablet Take 1 tablet by mouth daily. 03/18/2019 POLYETHYLENE GLYCOL 3350 (MIRALAX ORAL) Take 17 g by mouth as needed. 11/20/2010 07/09/2022 baclofen (LIORESAL) 10 mg tablet 10 MG = 1 Tablet(s), PO, QPM 07/11/2010 11/24/2016 ibuprofen (ADVIL;MOTRIN) 100 mg/5 mL suspension 300 mg, PO, Q6H prn 07/11/2010 017 documented as of this encounter Progress Notes * Gretchen Kate RN - 05/12/2014 1:56 PM EST OFFICE OF CARE MANAGEMENT/CLINICAL TUCK POINTER (CRC) Pediatrics CRC Initial Assessment Reviewed chart, nursing admission information, and discussed patient during rounds with the Pediatric team to assess continuing care and discharge needs. Introduced self to MomAnderson at the bedside and reviewed CRC role. Admitted with: Baclofen pump removal Social: Lives with family in [place], [place]. Support systems are family. Home/community services prior to admission: Home Health Agency: Has worked with [facility] in the past but no longer receiving services DME: [facility] [place], [place] Office [place], [place] Office Mom states that Tana has Hospital bed that needs a replacement mattress. Upon Chart Review saw that Dr. Ramirez wrote script for this 01/2008. Called [facility] who verified they provided bed. Will need script for new mattress with notes documenting need as Well as Letter of Medical Necessity. Will talk with Mom about who best can do this. Gave Mom information and she will discuss with her PCP or Orthopedics for replacing mattress. Managing Principal: MD [address] / [place] [address] Insurance: [place] [employer] Uses the (pharmacy) School/development issues: None Transportation @ d/c: Yes appropriate car seat/belt: yes Social Work consult: As needed Anticipated needs for discharge: No home care needs related to this admission. Will give Mom information about requesting new mattress from PCP or orthopedics. P: CRC to follow with Team and Family for coordination of disposition if any needs arise Gretchen Kate RN Clinical Diesel Engine Mechanic Apprentice Pediatrics/PICU Phone- [phone] Pager-[phone] * Scott Gómez MD - 05/12/2014 6:20 AM EST Neurosurgery - Inpatient Progress Note ID: Tana Shelton, 18 y.o. female s/p baclofen pump removal 05/11 POD 1 Interval Hx: -ALEKSANDRA, some pain overnight -Neurologically stable Objective: Medications: Scheduled Meds: ??? baclofen 10 mg Oral QAM ??? levonorgestrel-ethinyl estradiol 1 tablet Oral Daily ??? ceFAZolin 1 g Intravenous Q8H ??? acetaminophen 15 mg/kg/dose Oral Q6H ??? ibuprofen 10 mg/kg/dose Oral Q6H Continuous Infusions: ??? sodium chloride 0.9% with potassium chloride 20 mEq 87 mL/hr (05/11/14 2205) PRN Meds:ondansetron, oxyCODONE, HYDROmorphone Vitals: Temp: [36.2 ??C (97.2 ??F)-37.9 ??C (100.2 ??F)] Heart Rate: [72-141] Resp: [9-26] BP: (98-112)/(49-72) SpO2: [95 %-100 %] I/O: Intake/Output Summary (Last 24 hours) at 05/12/14 0620 Last data filed at 05/12/14 0400 Gross per 24 hour Intake 2049 ml Output 1592 ml Net 457 ml Drain(s): CARMELLA minimal Labs: Recent Labs 05/11/14 0827 WBC 7.8 HGB 13.6 PLATELET 394* No results found for this basename: NA, K, CL, CO2, BUN, CREATININE, in the last 72 hours No results found for this basename: PT, INR, in the last 72 hours Physical Exam: -NAD, appears comfortable -Awake, alert, tracking -PERRL, EOMI -Spastic x 4 -Incisions C/D/I Assessment/Plan:: 18 y.o. female s/p baclofen pump removal. Neurologically stable. - Close neurological observation, q4 checks - Ancef for duration of drain - Advance diet - Mobilize Associated attestation - Juan Samuel MD - 05/12/2014 8:43 AM EST Tana looks great. Drain output minimal. D/c drain. On oral pain meds. Mobilize today. D/C home later today or tomorrow depending on pain control. * Janel Sullivan - 05/11/2014 4:48 PM EST Orthopaedic Surgery Post-Operative Progress Note Surgery: removal of spine infusion pump, tunneled intrathecal catheter Patient Active Problem List Diagnosis Code ??? 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 Acquired dysplasia of hip, bilateral 736.39 ??? Edema leg 782.3 ??? Scoliosis 737.30 ??? Spasticity 781.0 ??? Presence of intrathecal baclofen pump V45.89 Patient seen: In PICU Subjective/Events: Patient nonverbal, per RN and mom report, she has had some increased pain since surgery which has abated somewhat with pain meds given. No vomiting or other issues. Objective: Vitals: Temp: [36.2 ??C (97.2 ??F)-37.2 ??C (99 ??F)] Heart Rate: [72-130] Resp: [9-20] BP: (101-112)/(60-72) SpO2: [98 %-100 %] I/O this shift: In: 1199 [I.V.:1199] Out: 825 [Urine:825] Exam: General: NAD, appears uncomfortable in bed, cries when examinedd CV: RRR Resp: Breathing comfortably, lungs CTAB Abd: Soft, nontender, nondistended. Dressings c/d/i Neuro: patient with baseline spasticity with quadriplegia. Some spontaneous movement of LUE. Recent Labs 05/11/14 0827 WBC 7.8 HGB 13.6 HCT 40.7 PLATELET 394* A/P: 18 y.o. year old female POD#0 s/p removal of spine infusion pump, tunneled intrathecal catheter. - continue all post-operative care - pain control documented in this encounter H&P Notes * Es Figueroa MD - 05/11/2014 4:05 PM EST PICU Attending Progress Note Name: TANA SHELTON : 1995 Date of Admission: 05/11/2014 PCP: NAINA LINDSEY MD ID: Tana Shelton is a 18 y.o. 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 She had baclofen pump placed in 2007 (in [place], [place]) and initially had some benefit however subsequently has had lower extremity joint and tendon releases and ultimately mom does not feel the pump is useful. She has been followed by Dr Dotson who was able to titrate the baclofen infusion down in a step thomas fashion to off.Per neurosurgical team, mom noted no difference in spasticity with the weaning or discontinuation of the baclofen pump. She does continue on enteral daily baclofen. Of note, she has also had RUE surgery with muscle transfer and releases. Given the pump no longer required and that it was coming to its expiration (per mom, after 6 years) decision made to remove the pump. She met with Dr Samule who was able to do the procedure today. In the week leading up to surgery Tana has been well, no fevers, no cough, normal energy and appetite. Mom notes that she is a happy girl in general. Surgery without complications although some scar tissue around pump. Easily intubated with normal view, 7.0c ETT with mac 3. She had minimal EBL and received ondansetron, dexamethasone and fentanyl prior to end of case. Problem List: Patient Active Problem List Diagnosis Code ??? 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 Acquired dysplasia of hip, bilateral 736.39 ??? Edema leg 782.3 ??? Scoliosis 737.30 ??? Spasticity 781.0 ??? Presence of intrathecal baclofen pump V45.89 Medications Scheduled: ??? baclofen 10 mg Oral QAM ??? levonorgestrel-ethinyl estradiol 1 tablet Oral Daily ??? ceFAZolin 1 g Intravenous Q8H ??? morphine ??? diphenhydrAMINE ??? acetaminophen 15 mg/kg/dose Oral Q6H ??? ibuprofen 10 mg/kg/dose Oral Q6H ??? morphine 5 mg Intravenous Once ??? diphenhydrAMINE 25 mg Intravenous Once PRN: ondansetron Infusion: ??? sodium chloride 0.9% with potassium chloride 20 mEq 87 mL/hr (05/11/14 1400) Allergies: Allergies Allergen Reactions ??? Fluoxetine Other (See Comments) HIVES, HEART RACES PE Vitals: Last value Range last 24 hrs Temperature Temp: 37.1 ??C (98.8 ??F) Temp: [36.2 ??C (97.2 ??F)-37.6 ??C (99.7 ??F)] Heart Rate Heart Rate: 117 Heart Rate: [72-130] Blood Pressure BP: 109/60 mmHg BP: (101-112)/(60-72) Respiratory Rate Resp: 20 Resp: [9-20] SpO2 SpO2: 98 % SpO2: [95 %-100 %] Intake/Output Summary (Last 24 hours) at 05/11/14 1605 Last data filed at 05/11/14 1503 Gross per 24 hour Intake 1003 ml Output 825 ml Net 178 ml Patient Vitals for the past 168 hrs: Weight 05/11/14 0706 47.628 kg (105 lb) General: sedated, not yet stirring Cardiovascular: RR, no murmur, good pulses, cap refill brisk Respiratory: face mask and oral airway in place, low RR, CTA, no RTX, no wheezes or crackles GI/Abd: soft, ND, lower R abdomen with dressing in place, significant thoraco- lumbar scoliosis Extrem: warm and well perfused, no rash, contractures at elbows, wrists, knees and ankles Neuro: sedated, PERRL Later awake with EOMs appearing intact, interactive with mom, moving UEs LABS Specific labs eviewed below Assessment/Plan: Tana Shelton is a 18 y.o. with h/o spasticity with baclofen pump admitted to the PICU s/p removal of baclofen pump Post operatively Tana is at risk for airway/breathing compromise with emergence from anesthesia; neuro compromise if any significant bleeding or swelling at surgery sites. Also anticipate need for pain control Respiratory: currently with need for oral airway given relaxed tissue and obstruction, will continue this as needed Following respiratory status closely Weaning supplemental oxygen as tolerated Cardiovascular: well perfused with normal HR and BP Piv in place Following hemodynamics closely FEN: well hydrated, supported with IVF Isotonic fluids at maintenance Following I/O and UO HEME/ID: minimal EBL as noted, at risk for bleeding, will monitor closely. In addition has incisionover spine with sacral drape in place, will need close attention to hygiene for infection control afeb Watching closely for signs of infection GI/Nutrition: well nourished in general. NPO for OR Once awake will re-assess and advance diet if doing well May have some nausea post anesthesia - will have ondansetron as needed Neuro: anticipate some pain. At risk for neurologic compromise if any bleeding or significant swelling around surgical sites following mental status very closely acetaminophen prn for pain or fever Morphine for breakthrough pain Derm: No issues currently however at risk for pressure ulcers given her limited mobility Of note she has a tendency to get hives when upset or in pain Will had diphenhydramine prn Social: Mom at bedside, present for admission and updated to current plan critical care 45min for review of events, review of labs and imaging, exam, management of post anesthesia airway, post neurosurgery risks and coordination of care with anesthesia, neurosurgery and PICU teams * Rj Vasquez MD - 05/11/2014 11:49 AM EST PICU Admit Note ID: Tana Shelton is a 18 y.o. with h/o Non-Accidental Trauma admitted to the PICU s/p removal of Baclofen Pump Tana is a 18 year old female with a history of S[place] presenting to the PICU following the elective removal of a baclofen pump. The patient had been in her usual state of health leading up to the procedure. The pump was initially placed at an OSH in 2007 due to increased tone and spacticity in her lower extremities. Her mother states that the pump was initially adequately treating the patient's symptoms; however, the efficacy of the pump declined. The patient then had osteotomies of her lower extremities, which her mother feels is adequately treating her symptoms. The patient's mother opted to remove the pump rather than replace the pump. The patient's baclofen was tapered over the last several months and her mother reports some spasm at the end of each day. This has been adequately treatedwith intermittent as needed doses of valium. The patient has otherwise been stable and doing well. She was admitted to the PICU following an uneventful operation to remove the pump. OR Course: Airway: Easy Oral ETT: 7.0 Blade: Mac 3 View: Grade 1 Induction of anesthesia: inhaled Maintenance of anesthesia: propofol Access: peripheral Crystalloid in: 700 ml UOP: 0 ml EBL: 0 ml Other meds: Decadron, rocuronium, fentanyl, zofran Extubated at the end of the case without issue. Transferred to the PICU for immediate post op recovery and continued care. Problem List: Patient Active Problem List Diagnosis Code ??? 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 Acquired dysplasia of hip, bilateral 736.39 ??? Edema leg 782.3 ??? Scoliosis 737.30 ??? Spasticity 781.0 ??? Presence of intrathecal baclofen pump V45.89 Medications: Scheduled: ??? baclofen 10 mg Oral QAM ### ??? levonorgestrel-ethinyl estradiol 1 tablet Oral Daily ### ??? ceFAZolin 1 g Intravenous Q8H ### PRN: ??? fentaNYL (PF) 50 mcg/mL 2mL syringe 25 mcg Intravenous Q5 Min PRN ### ??? HYDROmorphone (DILAUDID) 0.2 mg/mL 10mL Syringe (IR ONLY) 0.2-0.4 mg Intravenous Q5 Min PRN ### ??? nalOXone (NARCAN) injection 40 mcg 40 mcg Intravenous Q5 Min PRN ### ??? ondansetron (ZOFRAN) injection 4 mg 4 mg Intravenous Q8H PRN ### ??? acetaminophen (TYLENOL) 650 mg/20.3 mL oral liquid 477.0936 mg 10 mg/kg/dose Oral Q4H PRN ### ??? ibuprofen (ADVIL;MOTRIN) 100 mg/5 mL suspension 238 mg 5 mg/kg/dose Oral Q6H PRN ### Infusion: Allergies: Allergies Allergen Reactions ??? Fluoxetine Other (See Comments) HIVES, HEART RACES PE Last value Range last 24 hrs Temperature Temp: 36.2 ??C (97.2 ??F) Temp: [36.2 ??C (97.2 ??F)-37.6 ??C (99.7 ??F)] Heart Rate Heart Rate: 72 Heart Rate: [72-112] Blood Pressure BP: 109/66 mmHg BP: (104-112)/(60-71) Respiratory Rate Resp: 14 Resp: [9-18] SpO2 SpO2: 100 % SpO2: [95 %-100 %] Intake/Output Summary (Last 24 hours) at 05/11/14 1149 Last data filed at 05/11/14 0945 Gross per 24 hour Intake 700 ml Output 0 ml Net 700 ml Patient Vitals for the past 168 hrs: Weight 05/11/14 0706 47.628 kg (105 lb) General: Awake, calm in bed, alert HEENT: MMM, OP grossly benign Resp: CTA, no w/c/r, good air entry bilaterally CV: RR, no murmur, cap refill less than 3 seconds, good distal pulses Abdomen: soft, NT, ND, dressing in place over lower right abdomen c/d/i. Dressing in place over back. Ext: warm and well perfused Skin: Grossly intact, no bruises or rashes appreciated; surgical incision c/d/i Neuro: Alert, PERRL Labs No results found for this basename: PHENYTOIN, PHENOBARB, VALPROATE, CBMZ Lab Results Component Value Date WBC 7.8 05/11/2014 RBC 4.70 05/11/2014 HGB 13.6 05/11/2014 HCT 40.7 05/11/2014 MCV 86.6 05/11/2014 MCH 28.9 05/11/2014 MCHC 33.4 05/11/2014 PLATELET 394* 05/11/2014 RDWCV 13.7 05/11/2014 Electrolytes No results found for this basename: sodium, k, chloride, co2 Lab Results Component Value Date BUN 3* 08/17/2010 CREATININE <0.20* 08/17/2010 Glucose No results found for this basename: GLUCOSE Microbiology N/A Radiology N/A Assessment/Plan: Tana Shelton is a 18 y.o. y/o with h/o CP admitted to the PICU s/p Baclofen pump removal. Care at present currently focused on close attention to neurologic status, electrolyte derrangments, and pain control. Issues by system: Respiratory: Initially on FM O2, weaned quickly to RA, doing well at risk for airway issues post anesthesia close respiratory monitoring Cardiac: Access: PIV. Reportedly difficult stick. BPs and HRs in acceptable range for age; doing well from hemodynamic standpoint on no CV-directed intervention. CRM close monitoring of VS OLGA/GI: Close monitoring of I/Os MIVF with isotonic fluids with NS 20 KCl NPO for now; advance po once more awake post anesthesia Heme/ID: minimal EBL Ancef post op Monitor closely for signs infection Neuro Close neuro monitoring Tylenol and ibuprofen alternating for pain Home pain regimen Freq neuro checks Social: Parents at bedside and updated to plan of care Disposition: PICU * Juan Samuel MD - 05/11/2014 6:54 AM EST Neurosurgery - Pre-op Interval H&P Chief Complaint: Baclofen pump removal. 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 05/11/14 at 1430, Until Thu05/12/14 at 2037 1400 (New Bag - Provider: Deonna Hillman, EUNICE)2205 (New Bag - Provider: Flori Chandler RN) PRN Medication Order 05/10/2014 05/11/2014 05/12/2014 acetaminophen (TYLENOL) 650 mg/20.3 mL oral liquid 477.0936 mg (CANCELED) 477.0936 mg (rounded from 476 mg = 10 mg/kg/dose ? 47.6 kg), Oral, EVERY 4 HOURS PRN, Starting on Dianne 05/11/14 at 1129, Until Dainne 05/11/14 at 1418, Pain, Do not exceed 75 mg/kg for 24 hours., Routine 1148 (Given - Provider: Deonna Hillman, EUNICE) BUpivacaine-EPINEPHrine 0.25 %-1:200,000 injection (CANCELED) ONCE PRN, Starting on Dianne 05/11/14 at 0837, Until Dianne 05/11/14 at 1129, Intra-Operative (Intra-Procedure), Routine 0837 (Given - Provider: Juan Samuel MD) ibuprofen (ADVIL;MOTRIN) 100 mg/5 mL suspension 238 mg (CANCELED) 238 mg (5 mg/kg/dose ? 47.6 kg), Oral, EVERY 6 HOURS PRN, Starting on Dianne 05/11/14 at 1129, Until Dianne 05/11/14 at 1418, Pain, Do not administer until ketorolac doses are complete., Routine 1149 (Given - Provider: Deonna Hillman RN) oxyCODONE (ROXICODONE) immediate release tablet 5 mg (CANCELED)(Linked Group 1) 5 mg, Oral, EVERY 4 HOURS PRN, Starting on Dianne 05/11/14 at 1822, Until Dianne 05/11/14 at 2223, Pain, moderate pain not relieved by tylenol or ibuprofen, Routine 1855 (Given - Provider: Deonna Hillman RN) oxyCODONE (ROXICODONE) immediate release tablet 5-10 mg 5-10 mg, Oral, EVERY 4 HOURS PRN, Starting on Dianne 05/11/14 at 2222, Until Thu05/12/14 at 2037, Pain, PAIN, Admin. Instructions: 5 mg for pain scale 1-4, 10 mg for pain scale 5-10, Routine 2354 (Given - Provider: Flori Chandler RN) 0403 (Given - Provider: Flori Chandler RN)0759 (Given - Provider: Marilee Smith, EUNICE)1146 (Given - Provider: Marilee Smith, EUNICE)1618 (Given - Provider: Marilee Smith RN) thrombin (Bovine) (THROMBINAR) kit (CANCELED) ONCE PRN, Starting on Dianne 05/11/14 at 0848, Until Dianne 05/11/14 at 1129, Intra-Operative (Intra-Procedure) 0848 (Given - Provider: Juan Samuel MD - Comment: 12x7 gelfoam soaked in 20,000 units thrombin.) Thrombn (Hum Plas)-Fib-Apro-Ca ([facility]) 4 mL topical syringe (CANCELED) ONCE PRN, Starting on Dianne 05/11/14 at 0848, Until Dianne 05/11/14 at 1129, Intra-Operative (Intra-Procedure), Routine 0848 (Given - Provider: Juan Samuel MD) No Frequency Medication Order 05/10/2014 05/11/2014 05/12/2014 fentaNYL Citrate (PF) 100 mcg/2 mL (50 mcg/mL) syringe (COMPLETED) Starting on Dianne 05/11/14 at 1252, 1 dose, Until Dianne 05/11/14 at 1300, DEONNA HILLMAN: cabinet override 1300 (Given - Provider: Deonna Hillman EUNICE) morphine 10 mg/mL carpuject (COMPLETED) 1 dose, Starting on Dianne 05/11/14 at 1507, Until Dianne 05/11/14 at 1500, LUCILLE TALLGeovanna: cabinet override 1500 (Given - Provider: Deonna Hillman, EUNICE) Linked Groups Order Group 1: oxyCODONE (ROXICODONE) immediate release tablet 5 mg (CANCELED)Jump to med 5 mg, Oral, EVERY 4 HOURS PRN, Starting on Dianne 05/11/14 at 1822, Until Dianne 05/11/14 at 2223, Pain, moderate pain not relieved by tylenol or ibuprofen, Routine Or oxyCODONE (ROXICODONE) 5 mg/5 mL solution 5 mg (CANCELED) 5 mg, Oral, EVERY 4 HOURS PRN, Starting on Dianne 05/11/14 at 1822, Until Dianne 05/11/14 at 2223, Pain, For moderate pain not relieved by tylenol or ibuprofen, Routine documented in this encounter Care Teams Molded Grid And Parts Inspector Relationship Specialty Start Date End Date Naina Lindsey MD [address] [place] [address] PCP - General 03/19/10 08/25/16 documented as of this encounter
--- OUTSIDE RECORDS SUMMARY | 2023-11-09 18:18 | XMS_ITS | Encounter Summary ---
Author Organization [facility] [address] Care Team Providers Care Media Analytics Manager Name Role Phone Naina Lindsey MD Primary Care Provider [phone] Encounter Details Date Type Department Care Team (Late st Contact Info) Description 05/23/2014 External Results [place] [phone] Unknown None Social History Tobacco Use Types Packs/Day Years [...] EDT TH Visit (TeleHealth) [place] [phone] Lilli Joy APRN [facility] [place] [address] 11/30/2023 12:50 PM EDT [place] [address] 12/03/2023 12:30 PM EDT Office [place] [address] Hollie Ambriz MD [facility] [place] [address] documented as of this encounter Procedures Procedure Name Priority Date/Time Associated Diagnosis Comments SIDING MECHANIC Routine 05/21/2014 documented in this encounter Results * athletic monitor (05/21/2014) Unknown GENERAL SUPPLY ORDER MYRANDA documented in this encounter Visit Diagnoses Not on filedocumented in this encounter Care Teams Media Analytics Manager Relationship Specialty Start Date End Date Naina Lindsey MD [address] [place] [address] PCP - General 03/19/10 08/25/16 documented as of this encounter
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
--- OUTSIDE RECORDS SUMMARY | 2023-11-09 18:19 | XMS_ITS | Encounter Summary ---
Author Organization [facility] Address [facility] [place] [address] Care Team Providers Care Outside Property Agent Name Role Phone Naina Lindsey MD Primary Care Provider [phone] Reason for Referral * Consultation (Routine) - Closed Specialty Diagnoses / Procedures Referred By Contac t Referred To Contact Pediatric Neurosurgery Diagnoses Baclofen pump failure, initial encounter Donnell Dotson MD [facility] [place] [address] Jamaal Samuel MD [facility] [place] [address] Referral ID Status Reason Start Date Expiration Date V isits Requested Visits Authorized [id number] Closed Consult, Test & Treat 02/15/2014 08/14/2014 1 1 Encounter Details Date Type Department Care Team (Late st Contact Info) Description 02/15/2014 Orders [place] [address] Donnell Dotson MD [facility] [place] [id number] Baclofen pump failure, initial encounter Social History Tobacco Use Types Packs/Day Years Used Date Smoking Tobacco: Never Smokeless Tobacco: Never Alcohol Use Standard Drinks/Week Comments Not Asked 0 (1 standard drink = 0.6 oz pur e alcohol) Sex and Gender Information Value Date Recorded Sex Assigned at Not on file Gender Identity Not on file Sexual Orientation Not on file documented as of this encounter Plan of Treatment Upcoming Encounters Date Type Department Care Team (Late st Contact Info) Description 11/19/2023 2:30 PM EDT TH Visit (TeleHealth) [place] [address] Lilli Joy APRN [facility] [place] [address] 11/30/2023 12:50 PM EDT [place] [address] 12/03/2023 12:30 PM EDT Office Visit [place] [address] Hollie Ambriz MD [facility] [place] [address] Scheduled Referrals Name Type Priority Associated Diagnoses Order Schedule Referral to Pediatric Neurosurgery Outpatient Referral Routine Baclofen pump failure, initial encounter Ordered: 02/15/2014 documented as of this encounter Visit Diagnoses Diagnosis Baclofen pump failure, initial encounter documented in this encounter Care Teams Outside Property Agent Relationship Specialty Start Date End Date Naina Lindsey MD [address] [place] [address] PCP - General 03/19/10 08/25/16 documented as of this encounter
--- OUTSIDE RECORDS SUMMARY | 2023-11-09 18:19 | XMS_ITS | Encounter Summary ---
Author Organization [facility] [place] [address] Care Team Providers Care Wood Router Hand Name Role Phone Naina Lindsey MD Primary Care Provider [phone] Encounter Details Date Type Department Care Team (Late st Contact Info) Description 04/15/2011 Orders [place] [address] Margaux Godfrey MD [facility] [place] [address] Spasticity (Primary Dx) Social History Tobacco Use Types Packs/Day Years Used Date Smoking Tobacco: Never Alcohol Use Standard Drinks/Week Comments [...] EDT TH Visit (TeleHealth) [place] [address] Lilli Joy APRN [facility] [place] [address] 11/30/2023 12:50 PM ED[place] [address] 12/03/2023 12:30 PM EDT Office [place] [address] Hollie Ambriz MD [facility] [place] [address] documented as of this encounter Visit Diagnoses Diagnosis Spasticity- Primary Abnormal involuntary movements documented in this encounter Care Teams Wood Router Hand Relationship Specialty Start Date End Date Naina Lindsey MD [address] [place] [address] [place] [address] PCP - General 03/19/10 08/25/16 documented as of this encounter
--- OUTSIDE RECORDS SUMMARY | 2023-11-09 18:19 | XMS_ITS | Encounter Summary ---
Author Organization [facility] [place] [address] Care Team Providers Care Tree Pruner Name Role Phone Naina Lindsey MD Primary Care Provider [phone] Encounter Details Date Type Department Care Team (Late st Contact Info) Description 07/12/2012 Telephone [place] [address] Aniket Heredia MD [facility] [place] [address] Social History Tobacco Use Types Packs/Day Years [...] encounter Miscellaneous Notes * Telephone Encounter - Aniket Heredia MD - 07/12/2012 5:08 PM EDT Spoke with Tana's mother. She related events of past few days which included fever, vomiting, swelling of hands. Mom asked if this could be related to baclofen or failure of the pump. She has a baclofen pump and is due for refill tomorrow. She had her child evaluated in the ED at [facility] over the weekend and today again at her rehabilitation specialist's office. She reports that Tana seems to be better now. She reports Tana did not have an elevated white count and that a viral syndrome was being considered.We discussed the serious nature of a baclofen withdrawal and that this did not sound like that situation. I did ask her to respond to a local ED if any serious symptoms occurred before she was seen by us tomorrow for pump refill. She agreed with this plan. Aniket Heredia MD Pain fellow [facility] documented in this encounter Plan of Treatment Upcoming Encounters Date Type Department Care Team (Late st Contact Info) Description 11/19/2023 2:30 PM EDT TH Visit (TeleHealth) [place] [address] Lilli Joy APRN [facility] [place] [address] 11/30/2023 12:50 PM EDT [place] [address] 12/03/2023 12:30 PM EDT Office [place] [address] [facility] [place] [address] documented as of this encounter Visit Diagnoses Not on filedocumented in this encounter Care Teams Tree Pruner Relationship Specialty Start Date End Date Naina Lindsey MD [address] [place] [address] PCP - General 03/19/10 08/25/16 documented as of this encounter
--- OUTSIDE RECORDS SUMMARY | 2023-11-09 18:19 | XMS_ITS | Encounter Summary ---
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) Discharge Disposition: Home Social History Tobacco Use [...] Sign Reading Time Taken Comments Blood Pressure 114/75 04/25/2011 10:15 AM EST Pulse 101 04/25/2011 10:15 AM EST Temperature - - Respiratory Rate - - Oxygen Saturation 98% 04/25/2011 10:15 AM EST Inhaled Oxygen Concentration - - Weight 45.4 kg (100 lb) 04/25/2011 10:15 AM EST Height 162.6 cm (5' 4) 04/25/2011 10:15 AM EST Body Mass Index 17.16 04/25/2011 10:15 AM EST Body Mass Index Percentile 3.20% 04/25/2011 10: 15 AM EST Growth Chart: [facility] (Girls, 2- 20 Years) documented in this encounter Progress Notes * Bigg Dunbar MD - 04/29/2011 9:46 AM EST I was the attending physician supervising the resident in the above care. For the purposes of billing, the resident provided the care. * Nitin Zaldivar MD - 04/25/2011 11:49 AM EST Pain Management Center Refill of Intrathecal Pump with Reprogramming Procedure Note Weaning medication today. Pump is 40 ml, I placed 20 ml into pump, see notes below for detail Tana Cavazos [id number] Date of Refill: 04/25/11 Primary Industrial Economics Teacher: Dr. Zaldivar Career Guidance Technician: Dr. Dillon Reason for Reprogramming: Refill/weaning Diagnosis: Spasticity Pre-programming: Drug Concentration Daily Dose baclofen 1,000mcg/ml 218.1 mcg/day Post-programming: Drug Concentration Daily Dose Brand (B) or Compound (C) Lot number Baclofen 1,000mcg/ml 195.1 mcg/da Compound As above As above As above As above Pump Capacity: [] 20 ml [x] 40 ml Computer Predicted Residual Volume in Pump: [5.6 ml] Measured Residual volume in Pump: [6 ml] Medication or Dose Changes: [X] Yes [] No Is dose change > 30%? [] Yes [x] No Is concentration or drug different? [] Yes [x] No If concentrated or drug is different, has a bridge bolus been programmed? [] Yes [] No Has any program been used other than simple continuous or bridge bolus and simple continuous? (] Yes [x] No Infusion Mode: [x] simple continuous [] complex continuous (flex) [] periodic bolus [] stopped Has reprogramming affected refill date and if so, has this been accommodated for? [x] Yes [] No New Pump Alarm Date: 07/23/2011 Procedure: Since patient's hip surgery, legs have been freely mobile without any problem from spasticity. Mother is interested in possibly stopping baclofen medication and having pump removed during an upcomingspine surgery. Med dose decreased 12% last visit without any problem or notice of increase in spasticity. I have decreased dose 11% today. The medication that arrived from pharmacy was only 22ml today, not 40 ml as ordered. This was discussed with mother and Dr. Dunbar. We decided to proceed with a continued wean, placing the 20 ml of solution, and planning on seeing her back in less than 3 months. Mother will schedule a f/u visit for <3mo for continued wean. We re-ordered 20ml of solution today for next visit. Risks and expected side effects were reviewed with patient and her voiced concerns addressed. The printed consent form was signed and witnessed. Time Out was performed. The pump was accessed via telemetry and the computer predicted residual volume was noted as per above. Then chlorhexidine prep over the pump refill site was performed. Sterile drapes were applied as provided with the [employer] refill kit. A 22 gauge Persaud non-coring needle supplied with the refill kit was inserted through the refill-template into the central refill port of the pump. The pump was aspirated for the above measured residual volume. This residual volume was discarded. Freshly prepared solution of the medication(s) and concentration(s) as per above was used to refill the pump. 5ml of solution was instilled and easily withdrawn, no more or no less than 5mls. 20.0 ml of the solution was instilled into the pump according to the machine setter sheet metal's directions without difficulty. There was no evidence of over pressurization at the conclusion of the filling process. The Persaud needle was withdrawn and a bandaid was applied. The pump was then re-accessed via telemetry and reprogrammed to indicate the refill volume of 20.0 ml and any dose, concentration, or different drug used, as indicated above. Battery alarms reviewed and were appropriately enabled and in working order. Patient tolerated the procedure well and was discharged from the pain clinic. Follow-up appointments will be arranged for refills as appropriate. This was a 15 min visit , 10 min of which was spent counseling regarding the advantages or disadvantages or refilling pump with 20ml vs 40ml, and weaning the medication. Nitin Zaldivar MD Fellow, Pain Medicine 1025 documented in this encounter Miscellaneous Notes * Miscellaneous - Delbert, Medical Services Coordinator - 05/01/2011 2:01 PM EST documented in this encounter Plan of Treatment Upcoming Encounters Date Type Department Care Team (Late st Contact Info) Description 11/19/2023 2:30 PM EDT TH Visit (TeleHealth) [place] [address] Lilli Joy APRN [facility] [place] [address] 11/30/2023 12:50 PM EDT Appointment [place] [phone] 12/03/2023 12:30 PM EDT Office Visit [place] [address] Hollie Ambriz MD [facility] [place] [address] documented as of this encounter Visit Diagnoses Diagnosis 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- Primary Intracranial injury of other and unspecified nature, without mention of open intracranial wound, unspecified state of consciousness documented in this encounter Administered Medications Inactive Administered Medications - up to 3 most recent administrations Medication Order MAR Action Action Date Dose Rate Site pain clinic compounded medication 1 each 1 each (0.022 Each/kg), Intrathecal, ONCE, 1 dose, On Thu04/25/11 at 1215, Routine, Medication Name and Dose: baclofen 1000 mcg/ml Given 04/25/2011 11:54 AM EST 1 each documented in this encounter Care Teams Knitting Machine Fixer Head Relationship Specialty Start Date End Date Naina Lindsey MD [address] [place] [address] PCP - General 03/19/10 08/25/16 documented as of this encounter
--- OUTSIDE RECORDS SUMMARY | 2023-11-09 18:19 | XMS_ITS | Encounter Summary ---
Author Organization [facility] [place] [address] Care Team Providers Care Patrol Judge Name Role Phone Naina Lindsey MD Primary Care Provider [phone] Reason for Visit * Reason Comments Pain Encounter Details Date Type Department Care Team (Latest Contact Info) Description 02/15/2014 4:45 PM EDT Procedure [place] [phone] Donnell Dotson MD [facility] [place] [address] Spasticity; Abnormal involuntary movements(941.0) Discharge Disposition: Home Social History Tobacco Use [...] Sign Reading Time Taken Comments Blood Pressure 100/74 02/15/2014 5:12 PM EDT Pulse 80 02/15/2014 5:12 PM EDT Temperature - - Respiratory Rate 18 02/15/2014 5:12 PM EDT Oxygen Saturation 99% 02/15/2014 5:12 PM EDT Inhaled Oxygen Concentration - - Weight 49.9 kg (110 lb) 02/15/2014 5:12 PM EDT Height 157.5 cm (5' 2) 02/15/2014 5:12 PM EDT Body Mass Index 20.12 02/15/2014 5:12 PM EDT documented in this encounter Procedure Notes * Donnell Dotson MD - 02/15/2014 5:33 PM EDTAssociated Order(s): INTRATHECAL PUMP REPROGRAMMING Pre-Procedure Diagnose(s): Abnormal involuntary movements(781.0) Progress note Mother states that there were no complications from the recent decrease from 195 down to 175 microgramsper day of intrathecal baclofen. There is no altered mental status, fever, agitation. No change in spasticity. spinal infusion pump was inquired. Currently receiving a simple continuous infusion of intrathecal baclofen at 175mcg per day.Pump was decreased to 140 mcg per day, 20% decrease. Followup one week from today to evaluate further decreases. Referral me to Dr. Samuel for possible pump removal once she is completely off the baclofen. documented in this encounter Plan of Treatment Upcoming Encounters Date Type Department Care Team (Late st Contact Info) Description 11/19/2023 2:30 PM EDT TH Visit (TeleHealth) [place] [phone] Lilli Joy [place] [address] 11/30/2023 12:50 PM EDT [place] [phone] 12/03/2023 12:30 PM EDT Office [place] [phone] Hollie Ambriz MD [facility] [place] [address] documented as of this encounter Procedures Procedure Name Priority Date/Time Associated Diagnosis Comments INTRATHECAL PUMP REPROGRAMMING Routine 02/15/2014 5:35 PM EDT Abnormal involuntary movements(781.0) documented in this encounter Results * INTRATHECAL PUMP REPROGRAMMING (02/15/2014 5:35 PM EDT) Narrative Donnell Dotson MD - 02/15/2014 5:35 PM EDT Donnell Dotson MD ? 02/15/2014 ??5:35 PM Progress note Mother states that there were no complications from the recent decrease from 195 down to 175 ??microgramsper day of intrathecal baclofen. There is no altered mental status, fever, agitation. No change in spasticity. spinal infusion pump was inquired. Currently receiving a simple continuous infusion of intrathecal baclofen at ??175mcg per day.Pump was decreased to 140 mcg per day, 20% decrease. Followup one week from today to evaluate further decreases. Referral me to Dr. Samuel for possible pump removal once she is completely off the baclofen. Procedure Note Donnell Dotson MD - 02/15/2014 5:33 PM EDT Progress note Mother states that there were no complications from the recent decreasefrom 195 down to 175 microgramsper day of intrathecal baclofen. There isno altered mental status, fever, agitation. No change in spasticity. spinal infusion pump was inquired. Currently receiving a simplecontinuous infusion of intrathecal baclofen at 175mcg per day.Pump wasdecreased to 140 mcg per day, 20% decrease. Followup one week from today to evaluate further decreases. Referral me to Dr. Samuel for possible pump removal once she is completelyoff the baclofen. Donnell Dotson MD PROCEDURE/MINOR SURG ICAL ORDERABLES documented in this encounter Visit Diagnoses Diagnosis Spasticity Abnormal involuntary movements Abnormal involuntary movements(781.0) Abnormal involuntary movements documented in this encounter Care Teams Patrol Judge Relationship Specialty Start Date End Date Naina Lindsey MD [address] [place] [address] PCP - General 03/19/10 08/25/16 documented as of this encounter
--- OUTSIDE RECORDS SUMMARY | 2023-11-09 18:19 | XMS_ITS | Encounter Summary ---
Author Organization [facility] [place] [address] Care Team Providers Care Degreaser Name Role Phone Naina Lindsey MD Primary Care Provider [phone] Reason for Visit * Reason Comments Bilateral Leg Pain CP Encounter Details Date Type Department Care Team (Late st Contact Info) Description 05/19/2011 10:40 AM EST [place] [phone] Yas Ramirez MD [facility] [place] [address] TBI (traumatic brain injury) (Primary Dx); Scoliosis; DDH (developmental dysplasia of the hip) Discharge Disposition: Home Social History Tobacco Use [...] as of this encounter Progress Notes * Yas Ramirez MD - 05/19/2011 11:08 AM EST Lizbeth was seen and examined in combination with Prince SIMMS. In general, she seems to be doinga bit better from a discomfort standpoint. She seems to be making nice headway with the cognitive skills particularly verbal vacation. It remains challenging given that her wheelchair has not been adequately refurbished or adjusted. This has been delayed while the question of further surgical intervention on her spine is determined. On examination today Lizbeth is in good spirits. She does seem to experience discomfort during transfers although is able to settle fairly quickly afterwards. She has, as expected, very mobile hips with resting posture in an externally rotated and abducted position. She has significant residual knee f lexion contractures on the order of about 45??. She has a residual lumbar curve, right with a residual left flank crease. Skin is in good condition and there is no breakdown. Mother does need to use some powder in that flank crease to prevent skin irritation. When she is brought into a seated position she does bear more weight over her right ischium. Her skin is in good condition and no evidence of breakdown. No x-rays obtained today. Assessment: Stable Plan: Discussed with mother that overall, Lizbeth seems to be doing reasonably well. We reviewed again the potential for surgical intervention to revise her scoliosis. This would necessitate a 3 stage procedure including the posterior removal of instrumentation distally, anterior procedure with release/osteotomy, followed by revision posterior osteotomy and instrumentation. Given that overall her functional status has been stable to improved decision at this time is to hold off on further surgical intervention. Given that we have provided a prescription to allow for optimization of her wheelchair. We will see her back in 45 months time for recheck with pre-clinic seated AP and lateral scoliosis x- ray. Mother is to call if there are issues or concerns. Did also review with mother that intermittently there are issues of persistent swelling and alteredtemperature of either leg. We have been using or provided a prescription for some EMMA hose to address this. Patient ID: Tana Cavazos is a 15 y.o. female. HPI ROS Objective: Physical Exam Ortho Exam Neurologic Exam Assessment and Plan: No problem-specific visit notes found for this encounter. * Zander Hi PA - 05/19/2011 10:55 AM EST Subjective: Patient ID: Tana Cavazos is a 15 y.o. female. HPI Comments: Tana is a young woman with neuromotor dysfunction status post a traumatic brain injury when she was a toddler. She has had significant issues of spasticity and spinal deformity, for which she has undergone a posterior spinal fusion. Residual lumbar deformity has been challenging and we have discussed the potential for revision procedure with mom. We talked about the fact that this would be an extensive intervention with revision posterior procedure, likely need for anteriorly, possible vertebrectomy at apex of the lumbar deformity, and re-instrumentation posteriorly. Returns today with mom, they state that in general she is doing well. Her communication has been improving asshe is working with a speech pathologist. Mom feels that the biggest obstacles are related to her wheel chair. Review of Systems Constitutional: Negative. Musculoskeletal: Negative. Skin: Negative. Objective: Physical Exam Constitutional: She is well-developed, well-nourished, and in no distress. Neurological: She is alert. Skin: Skin is warm and dry. Psychiatric: Mood and affect normal. Ortho Exam Neurologic Exam Assessment and Plan: No problem-specific visit notes found for this encounter. documented in this encounter Plan of Treatment Upcoming Encounters Date Type Department Care Team (Late st Contact Info) Description 11/19/2023 2:30 PM EDT TH Visit (TeleHealth) [place] [phone] Lilli Joy APRN [facility] [place] [address] 11/30/2023 12:50 PM EDT [place] [phone] 12/03/2023 12:30 PM EDT Office [place] [phone] Hollie Ambriz MD [facility] [place] [address] documented as of this encounter Results * XR scoliosis 1 view (12/16/2011 12:36 PM EDT) Anatomical Region Laterality Modality C-spine, T-spine, L-spine N/A Radiog raphic Imaging 12/16/2011 12:3 6 PM EDT Narrative 12/16/2011 4:35 PM EDT Examination SCOLIOSIS SINGLE VIEW Clinical History scoliosis. S/P fusion; Comparison 06/12/2010. Technique Findings AP sitting images of the spine were obtained. ??The patient is status post spinal fusion with apparent disconnection of the lower in the sacral hardware on the right. ??Baclofen pump remains in place. ??Of note, the catheter is not followed in its entirety. ??Remainder of the hardware is unchanged and the degree of spinal curvature appears stable. Impression Apparent disconnect of the lower right sacral hardware. ??This could be confirmed with a lateral view. Findings were called to the Orthopedic department and left with Marie in Dr. Ramirez's abscence. Procedure Note Stacie Castrejon MD - 12/16/2011 Examination SCOLIOSIS SINGLE VIEW Clinical History scoliosis. S/P fusion; Comparison 06/12/2010. Technique Findings AP sitting images of the spine were obtained. The patient is status post spinal fusion with apparent disconnection of the lower in the sacralhardware on the right. Baclofen pump remains in place. Of note, the catheter isnot followed in its entirety. Remainder of the hardware is unchanged and the degree of spinal curvature appears stable. Impression Apparent disconnect of the lower right sacral hardware. This could be confirmed with a lateral view. Findings were called to the Orthopedic department and left with Marie in Dr. Ramirez's abscence. Yas Ramirez MD IMG DX ORDERABLES documented in this encounter Visit Diagnoses Diagnosis TBI (traumatic brain injury)- Primary Intracranial injury of other and unspecified nature, without mention of open intracranial wound, unspecified state of consciousness Scoliosis Scoliosis (and kyphoscoliosis), idiopathic DDH (developmental dysplasia of the hip) Other congenital deformity of hip (joint) Scoliosis Scoliosis (and kyphoscoliosis), idiopathic documented in this encounter Care Teams Degreaser Relationship Specialty Start Date End Date Naina Lindsey MD [address] [place] [address] PCP - General 03/19/10 08/25/16 documented as of this encounter
--- OUTSIDE RECORDS SUMMARY | 2023-11-09 18:19 | XMS_ITS | Encounter Summary ---
Author Organization [facility] [place] [address] Care Team Providers Care Provider Relations Advocate Name Role Phone Naina Lindsey MD Primary Care Provider [phone] Reason for Visit * Reason Comments Pain Management Encounter Details Date Type Department Care Team (Latest Contact Info) Description 02/28/2014 4:30 PM EST Procedure [place] [phone] Donnell Dotson MD [facility] [place] [address] Karen Early [facility] [place] [address] Traumatic brain injury, sequela (Primary Dx) Discharge Disposition: Home Social History Tobacco Use Types Packs/Day Years Used Date Smoking Tobacco: Never Smokeless Tobacco: Never Comments:NO SMOKERS IN THE H OME Alcohol Use Standard Drinks/Week Comments Not Asked 0 (1 standard drink = 0.6 oz pur e alcohol) Sex and Gender Information Value Date Recorded Sex Assigned at Not on file Gender Identity Not on file Sexual Orientation Not on file documented as of this encounter Last Filed Vital Signs Vital Sign Reading Time Taken Comments Blood Pressure 120/85 02/28/2014 4:39 PM EST Pulse 143 02/28/2014 4:39 PM EST Temperature - - Respiratory Rate 24 02/28/2014 4:39 PM EST Oxygen Saturation - - Inhaled Oxygen Concentration - - Weight 47.6 kg (105 lb) 02/28/2014 4:39 PM EST Height - - Body Mass Index 19.2 02/15/2014 5:12 PM EDT documented in this encounter Progress Notes * Bigg Dunbar MD - 03/01/2014 7:54 AM EST I was the attending physician supervising the resident in the above care. For the purposes of billing, the resident provided the care. * Karen Early DO - 02/28/2014 4:58 PM EST Tana Cavazos 02/28/2014 [id number] Intrathecal Pump Visit Tana Cavazos presents today with her mother for continued weaning of her intrathecal baclofen. Themother reports no signs of baclofen withdrawal or increased spasticity with the previous reduction.She's been reduced in 20% increments over the past few weeks with an ultimate plan for explantationwhen she is completely weaned. This is being facilitated by Dr. Dotson in conjunction with Dr. Samuel. Today I interrogated the patient's intrathecal pump and she was at 140 mcg per day. I decreased this dose by 20% to 112.1 mcg per day. The patient will followup in 2 weeks as her mother will not beable to bring her next week. At this time as long as there is no signs of withdrawal with this reduc tion we will again reduced by 10-20%. We reviewed signs and symptoms of baclofen withdrawal and thepatient does have oral baclofen available in the event that she does experience withdrawal. KAREN EARLY DO documented in this encounter Plan of Treatment Upcoming Encounters Date Type Department Care Team (Late st Contact Info) Description 11/19/2023 2:30 PM EDT TH Visit (TeleHealth) [place] [address] Lilli Joy APRN [facility] [place] [address] 11/30/2023 12:50 PM EDT [place]ointment [place] [phone] 12/03/2023 12:30 PM EDT Office Visit [place] [phone] Hollie Ambriz MD [facility] [place] [address] documented as of this encounter Visit Diagnoses Diagnosis Traumatic brain injury, sequela- Primary documented in this encounter Care Teams Provider Relations Advocate Relationship Specialty Start Date End Date Naina Lindsey MD [address] [place] [address] [place] [address] PCP - General 03/19/10 08/25/16 documented as of this encounter
--- OUTSIDE RECORDS SUMMARY | 2023-11-09 18:19 | XMS_ITS | Encounter Summary ---
Author Organization [facility] [place] [address] Care Team Providers Care Certified Genetic Counselor Name Role Phone Naina Lindsey MD Primary Care Provider [phone] Encounter Details Date Type Department Care Team (Late st Contact Info) Description 02/27/2014 Telephone [place] [address] Donnell Dotson MD [facility] [place] [address] Social History Tobacco Use Types Packs/Day Years [...] encounter Miscellaneous Notes * Telephone Encounter - Donnell Dotson MD - 02/27/2014 9:12 AM EST Telephone call with DEMI Currie for Dr. Samuel. He now understands the circumstances behind this patient in the pump removal. He now understands more appropriate for Dr. Samuel rather than the general surgeon to remove the pump. He we'll talk to Dr. Samuel. I told him to take roughly a month not longer to taper her down on the intrathecal baclofen. documented in this encounter Plan of Treatment Upcoming Encounters Date Type Department Care Team (Late st Contact Info) Description 11/19/2023 2:30 PM EDT TH Visit (TeleHealth) [place] [address] [facility] [place] [address] 11/30/2023 12:50 PM EDT [place] [address] 12/03/2023 12:30 PM EDT Office [place] [address] Hollie Ambriz MD [facility] [place] [address] documented as of this encounter Visit Diagnoses Not on filedocumented in this encounter Care Teams Certified Genetic Counselor Relationship Specialty Start Date End Date Naina Lindsey MD [address] [place] [address] PCP - General 03/19/10 08/25/16 documented as of this encounter
--- OUTSIDE RECORDS SUMMARY | 2023-11-09 18:19 | XMS_ITS | Encounter Summary ---
Author Organization [facility] [place] [address] Care Team Providers Care Fisher Quahog Name Role Phone Naina Lindsey MD Primary Care Provider [phone] Encounter Details Date Type Department Care Team (Late st Contact Info) Description 05/03/2014 Unscheduled Encounter [place] [address] Alek Sinha, [employer] [facility] [place] [address] Spasticity Social History Tobacco Use Types Packs/Day [...] on file documented as of this encounter H&P Notes * Alek Sinha APRN - 05/12/2014 12:54 PM EST Tana Cavazos was seen in the Pediatric neurosurgery clinic today for a pre-op visit. 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 She has been Treated for tone medically and in 2007 underwent placement of a baclofen pump which mother feelsis not helping her tone. She has been seen at [facility] by Barron Dotson who has weaned the pump at mothers request in preporation for pump removal. Mother reports that Tana has been generally well and that she has had no fevers, no URI sx, and nopotential infectious exposures. Mother reports that she has no cardiac concerns, no hx of bleeding disorders. She does have an allergie to fluoxetine which has been documented in the chart. On exam, Tana is sitting in her chair and she bright and alert and generally well appearing. She has no sundowning or nystagmus noted and hers facial movements are symmetric. Her oral pharynx is pink and moist with an intact airway. Her lungs are clear through out all lung mendoza and she is breathing very relaxed with full thoracic expansion. She has normal heart sound with S1-S2 heard and and no murmurs appreciated on this exam. She will fix and follow in all directions. In summary Tana is an 18 year old female who presents for pre-op evaluation for baclofen pump explant. She presents today in good general health. I again reviewed the surgical procedure and expected hospital course with the family and they report that all questions have been answered to date. Have advised mother and father to avoid Aspirin, NSAIDS, and herbal remedies in the time leading up to surgery as these medications and supplements carry an increased risk for bleeding during the operation. Have advised the family that they can give tylenol if she requires pain medicine leading up to surgery as tylenol does not interfere with coagulation. In addition I have reviewed the recommendations for when eating should be stopped prior to time of surgery and that Tana should have an empty stomach at least two hours prior to the opperation. Have asked mother to call the clinic if Tana has URI sx, fever, or any other signs of concern during the week prior to surgery. documented in this encounter Plan of Treatment Upcoming Encounters Date Type Department Care Team (Late st Contact Info) Description 11/19/2023 2:30 PM EDT TH Visit (TeleHealth) [place] [address] Lilli Joy APRN [facility] [place] [address] 11/30/2023 12:50 PM ED[place] [phone] 12/03/2023 12:30 PM EDT Office [place] [address] Hollie Ambriz MD [facility] [place] [address] documented as of this encounter Visit Diagnoses Diagnosis Spasticity Abnormal involuntary movements documented in this encounter Care Teams Fisher Quahog Relationship Specialty Start Date End Date Naina Lindsey MD [address] [place] [address] [place] [address] PCP - General 03/19/10 08/25/16 documented as of this encounter
--- OUTSIDE RECORDS SUMMARY | 2023-11-09 18:19 | XMS_ITS | Encounter Summary ---
Author Organization Formerly [facility] [place] [address] Care Team Providers Care People Greeter Name Role Phone Naina Lindsey MD Primary Care Provider [phone] Encounter Details Date Type Department Care Team (Late st Contact Info) Description 06/30/2011 Orders [place] [phone] Boyd Dillon MD [facility] [place] [address] Spasticity (Primary Dx) Social History Tobacco Use [...] EDT TH Visit (TeleHealth) [place] [address] Lilli Joy, [place] [facility] [place] [address] 11/30/2023 12:50 PM EDT [place] [phone] 12/03/2023 12:30 PM EDT Office [place] [phone] Hollie Ambriz MD [facility] DR [place] [address] documented as of this encounter Visit Diagnoses Diagnosis Spasticity- Primary Abnormal involuntary movements documented in this encounter Care Teams People Greeter Relationship Specialty Start Date End Date Naina Lindsey MD [address] [place] [address] [place] [address] PCP - General 03/19/10 08/25/16 documented as of this encounter
--- OUTSIDE RECORDS SUMMARY | 2023-11-09 18:19 | XMS_ITS | Encounter Summary ---
Author Organization [facility] [place] [address] Care Team Providers Care Non Destructive Testing Engineer Name Role Phone Lorna Bal APRN Primary Care Provider [phone] Encounter Details Date Type Department Care Team (Late st Contact Info) Description 12/21/2013 Interpretation Only [place] [phone] Chuckie Mayfield MD [facility] [place] [address] Social History Tobacco Use Types Packs/Day Years [...] EDT TH Visit (TeleHealth) [place] [address] Lilli Joy APRN [facility] [place] [address] 11/30/2023 12:50 PM EDT [place] [address]1000 12/03/2023 12:30 PM EDT Office [place] [phone] Hollie Ambriz MD [facility] [place] [address] documented as of this encounter Procedures Procedure Name Priority Date/Time Associated Diagnosis Comments FILM LIBRARY STORAGE ONLY DX UPPER EXTREMITY Routine 12/21/2013 1:30 PM EDT documented in this encounter Results * Film Library- Storage Only DX Upper Extremity (12/21/2013 1:30 PM EDT) 08/10/2023 3:14 PM EDT Narrative [facility] - 08/10/2023 3:14 PM EDT This exam is auto-finalizing. It's purpose is for storage only. Chuckie Mayfield MD IMG FILM LIBRARY ORD ERABLES [place], [place] documented in this encounter Visit Diagnoses Not on filedocumented in this encounter Additional Health Concerns Infection Onset Date Last Indicated Resolved Time Rule Out Respiratory 06/28/2022 06/28/2022 023 5:38 PM EST Rule Out COVID-19 06/28/2022 06/28/2022 06/28/2022 5:38 PM EST Parainfluenza Virus 06/28/2022 06/28/2022 07/10/19 8:09 PM EDT Rule Out COVID-19 07/28/2022 07/29/2022 07/29/2022 12:36 AM EDT Rule Out COVID-19 07/28/2022 07/28/2022 07/29/2022 2:25 AM EDT Enterovirus / Rhinovirus 07/28/2022 07/28/2022 8:09 PM EDT Rule Out Respiratory 07/29/2022 07/29/2022 023 2:25 AM EDT documented as of this encounter Care Teams Non Destructive Testing Engineer Relationship Specialty Start Date End Date Lorna Bal APRN [address] [place] [address] PCP - General Family Medicine 05/27/18 documented as of this encounter
--- OUTSIDE RECORDS SUMMARY | 2023-11-09 18:19 | XMS_ITS | Encounter Summary ---
Author Organization [facility] [place] [address] Care Team Providers Care Photo Checker Name Role Phone Naina Lindsey MD Primary Care Provider [phone] Encounter Details Date Type Department Care Team (Late st Contact Info) Description 12/21/2013 1:40 PM EDT Ancillary Procedure [place] [address]1000 Chuckie Mayfield MD [facility] [place] [address] Social History Tobacco Use Types Packs/Day Years [...] EDT TH Visit (TeleHealth) [place] [address] [facility] [place] [address] 11/30/2023 12:50 PM EDT [place] [phone] 12/03/2023 12:30 PM EDT Office [place] [address] Hollie Ambriz MD [facility] [place] [address] documented as of this encounter Procedures Procedure Name Priority Date/Time Associated Diagnosis Comments FILM LIBRARY STORAGE ONLY DX WRIST Routine 12/21/2013 1:40 PM EDT documented in this encounter Results * Film Library- Storage Only DX Wrist (12/21/2013 1:40 PM EDT) 08/10/2023 3:14 PM EDT Narrative [facility] - 08/10/2023 3:14 PM EDT This exam is auto-finalizing. It's purpose is for storage only. Chuckie Mayfield MD IMG FILM LIBRARY ORD ERABLES [place], [place] documented in this encounter Visit Diagnoses Not on filedocumented in this encounter Care Teams Photo Checker Relationship Specialty Start Date End Date Naina Lindsey MD [address] [place] [address] [place] [address] PCP - General 03/19/10 08/25/16 documented as of this encounter
--- OUTSIDE RECORDS SUMMARY | 2023-11-09 18:19 | XMS_ITS | Encounter Summary ---
Author Organization [facility] [place] [address] Care Team Providers Care Intelligence Consultant Name Role Phone Naina Lindsey MD Primary Care Provider [phone] Reason for Visit * Reason Comments Pain Management Encounter Details Date Type Department Care Team (Latest Contact Info) Description 04/25/2014 4:15 PM EST Procedure [place] [address] Donnell Dotson MD [facility] [place] [address] Spasticity; Presence of intrathecal baclofen pump; Cerebral palsy Discharge Disposition: Home Social History Tobacco Use [...] Sign Reading Time Taken Comments Blood Pressure 110/73 04/25/2014 4:35 PM EST Pulse 123 04/25/2014 4:35 PM EST Temperature - - Respiratory Rate - - Oxygen Saturation - - Inhaled Oxygen Concentration - - Weight - - Height - - Body Mass Index - - documented in this encounter Procedure Notes * Donnell Dotson MD - 04/25/2014 5:46 PM ESTAssociated Order(s): INTRATHECAL PUMP REPROGRAMMING Pre-Procedure Diagnose(s): Cerebral palsy Patient came in today with her mother and brother to reprogram her spinal infusion pump. She currently receiving 50 mcg per cc of intrathecal baclofen 1000 mcg per cc. The pump cannot be programmed any lower. today we decided to decrease the concentration in the 250 mcg per cc. Overall goal is to decrease her today to 25 mcg per cc and then next week decrease her to 12 mcg per cc. This should be low enough dose for should not have withdrawal. She has surgery scheduled to remove the pump on May 15. proper timeout was performed. Consent was obtained. Area was prepped with the floor prep. Is a the side port kit I was easily able to aspirated 2 cc of fluid from the side-port using a 24-gauge needle. That fluid was discarded. I then used this refill kit for the pump. A total of 3 cc with was withdrawn. This is consistent with the interrogation of the pump. 25 cc was discarded. 5 cc was then placed back into the pump was additional 15 cc of saline to dilute that to 250 mcg per cc. Patient thenwas given of 0.2 cc bolus. This took 13 minutes. This was 2 removed the higher concentration and was in the internal tubing. An additional 2 cc was withdrawn from the side port. Finally a 0.2 cc bolus was given to placed the new solution into the existing tubing. Entire system was replaced, the reservoir and internal and external tubing was 250 mcg per cc. Patient was programmed at 25 mcg per day. Mom will arrange to have her reprogrammed next week. Precautions again regarding withdrawal were reviewed with the mother. Patient has not had any withdrawal whatsoever from the taper. No change in mental status or spasticity. Donnell Dotson MD documented in this encounter Plan of Treatment Upcoming Encounters Date Type Department Care Team (Late st Contact Info) Description 11/19/2023 2:30 PM EDT TH Visit (TeleHealth) [place] [address] Lilli Joy [place]N [facility] [place] [address] 11/30/2023 12:50 PM EDT Appointment Radiology at [facility] [place] [address] 12/03/2023 12:30 PM EDT Office Visit Infectious Disease at [facility] [place] [address]1000 Hollie Ambriz MD [facility] [place] [address] documented as of this encounter Procedures Procedure Name Priority Date/Time Associated Diagnosis Comments INTRATHECAL PUMP REPROGRAMMING Routine 04/25/2014 5:50 PM EST Cerebral palsy documented in this encounter Results * INTRATHECAL PUMP REPROGRAMMING (04/25/2014 5:50 PM EST) Narrative Donnell Dotson MD - 04/25/2014 5:50 PM EST Donnell Dotson MD ? 04/25/2014 ??5:50 PM Patient came in today with her mother and brother to reprogram her spinal infusion pump. She currently receiving 50 mcg per cc of intrathecal baclofen 1000 mcg per cc. The pump cannot be programmed any lower. today we decided to decrease the concentration in the 250 mcg per cc. Overall goal is to decrease her today to 25 mcg per cc and then next week decrease her to 12 mcg per cc. This should be low enough dose for should not have withdrawal. She has surgery scheduled to remove the pump on May 15. proper timeout was performed. Consent was obtained. Area was prepped with the floor prep. Is a the side port kit I was easily able to aspirated 2 cc of fluid from the side-port using a 24-gauge needle. That fluid was discarded. I then used this refill kit for the pump. A total of 3 cc with was withdrawn. This is consistent with the interrogation of the pump. 25 cc was discarded. 5 cc was then placed back into the pump was additional 15 cc of saline to dilute that to 250 mcg per cc. Patient then was given of 0.2 cc bolus. This took 13 minutes. This was 2 removed the higher concentration and was in the internal tubing. An additional 2 cc was withdrawn from the side port. Finally a 0.2 cc bolus was given to placed the new solution into the existing tubing. Entire system was replaced, the reservoir and internal and external tubing was 250 mcg per cc. Patient was programmed at 25 mcg per day. Mom will arrange to have her reprogrammed next week. Precautions again regarding withdrawal were reviewed with the mother. Patient has not had any withdrawal whatsoever from the taper. No change in mental status or spasticity. Donnell Dotson MD Donnell Dotson MD PROCEDURE/MINOR SURG ICAL ORDERABLES documented in this encounter Visit Diagnoses Diagnosis Spasticity Abnormal involuntary movements Presence of intrathecal baclofen pump Cerebral palsy Infantile cerebral palsy, unspecified documented in this encounter Care Teams Intelligence Consultant Relationship Specialty Start Date End Date Naina Lindsey MD [address] [place] [address] PCP - General 03/19/10 08/25/16 documented as of this encounter
--- OUTSIDE RECORDS SUMMARY | 2023-11-09 18:19 | XMS_ITS | Encounter Summary ---
Author Organization [facility] Address [facility] [place] [address] Care Team Providers Care Gravure Press Operator Name Role Phone Naina Lindsey MD Primary Care Provider [phone] Encounter Details Date Type Department Care Team (Latest Contact Info) Description 12/16/2011 12:15 PM EDT - 12/16/2011 11:59 PM EDT Hospital Encounter XRay at [address] [place] [address] CLINIC, Joesph Sheikh Jr., MD [facility] [place] [address] Aquiles Smith MD [facility] [place] [address] Scoliosis Discharge Disposition: Home Social History Tobacco [...] Sig Dispensed Refills Start Date End Date diaZEPam (VALIUM) 5 mg/5 mL solution Take by mouth every 8 hours as needed. 07/20/2013 POLYETHYLENE GLYCOL 3350 (MIRALAX ORAL) Take 17 g by mouth as needed. 11/20/2010 07/09/2022 baclofen (LIORESAL) 10 mg tablet 10 MG = 1 Tablet(s), PO, QPM 07/11/2010 11/24/2016 ibuprofen (ADVIL;MOTRIN) 100 mg/5 mL suspension 300 mg, PO, Q6H prn 07/11/2010 017 docusate sodium (COLACE) 50 mg/5 mL liquid 75 MG/7.5 ML, PO, Q12H 07/11/201007/22 tolnaftate (TINACTIN) 1 % powder APPLY TOPICALLY TO AREA DIRECTED, Top, PRN 07/11/2010 02/28/2014 documented as of this encounter Plan of Treatment Upcoming Encounters Date Type Department Care Team (Late st Contact Info) Description 11/19/2023 2:30 PM EDT TH Visit (TeleHealth) [place] [address] Lilli Joy APRN [facility] [place] [address] 11/30/2023 12:50 PM EDT [place]oint[place] [address] 12/03/2023 12:30 PM EDT Office [place] [address] Hollie Ambriz MD [facility] [place] [address] documented as of this encounter Procedures Procedure Name Priority Date/Time Associated Diagnosis Comments XR SCOLIOSIS OR TOTAL SPINE 1 VIEW Routine 12/16/2011 12:36 PM EDT Scoliosis documented in this encounter Results * XR scoliosis 1 [...] idiopathic documented in this encounter Care Teams Gravure Press Operator Relationship Specialty Start Date End Date Naina Lindsey MD [address] [place] [address] PCP - General 03/19/10 08/25/16 documented as of this encounter
--- OUTSIDE RECORDS SUMMARY | 2023-11-09 18:19 | XMS_ITS | Encounter Summary ---
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 For the purposes of billing, the resident provided the care. documented in this encounter Procedure Notes * Woody Marino MD - 07/22/2012 9:15 AM EDTAssociated Order(s): INTRATHECAL PUMP REPROGRAMMING Pre-Procedure Diagnose(s): Traumatic brain injury Pain Medicine Intrathecal Pump Reprogramming or Adjustment Tana Hayes Dirk [id number] Date of Programming/Adjustment: 07/22/12 Primary Mail Censor: Dr. Marino Supervisor Files: Chelsea Alva Reason for Reprogramming or Adjustment: Refill Rate Adjustment: No Diagnosis: Spasticity Concomitant Medical Problems: Telemetry Pre-programming Reading: Drug: Baclofen Concentration: 1000 mcg/ml Dose Delivery per day: 195.1 mcg/day Infusion Mode: simple continuous Telemetry Post-programming Reading: Drug: Baclofen Concentration: 1000 mcg/ml (RX #[id number], discard date 08/28/12) Dose Delivery per day: 195.1 mcg/day Infusion Mode: simple continuous Pump Capacity: [] 20 ml [xxx] 40 ml Expected Spiro Volume this visit: 2.6 ml Actual Spiro Volume this visit: 3.5 ml Medication or Dose Changes: [] Yes [xx] No Is dose change > 30%? [] Yes [x] No Is concentration or drug different? [] Yes [x] No New Pump Alarm Date: 01/30/2013 Has any program been used other than simple continuous or bridge bolus and simple continuous? NO Has reprogramming affected refill date and if so, has this been accommodated for? Yes Adverse Effect or System Complication from Reprogramming: NO If yes, description: Any change in concentration needed for the next visit? NO Other Comments: Pump refilled no concerns; ROSHAN=22 months Pump Refill Procedure: Risks and expected side effects were reviewed with patient and his voiced concerns addressed. The printed consent form was signed and witnessed. Time Out was performed. Time Out was performed including verification of: [ X] patient name [ X] [ X] drug [X ] drug concentration on syringe containing pump refill medication. The pump was accessed via telemetry and the computer predicted residual volume was noted as per above. Then chlorhexidine prep over the pump refill site was performed. Sterile drapes were applied as provided with the [employer]tronic refill kit. A 22 gauge Persaud non-coring [...] no more or no less than 5mls. 40 ml of the solution was instilled into the pump according to the binder and box builder's directions without difficulty. There was no evidence of over pressurization at the conclusion of the filling process.The Persaud needle was withdrawn and a bandaid was applied. The pump was then re-accessed via telemetry and reprogrammed to indicate the refill volume of 40 ml and any dose, concentration, or differentdrug used, as indicated above. The unused portion of the medication was discarded along with the old drug aspirated. Battery alarms reviewed and were appropriately enabled and in working order. Patient tolerated the procedure well and was discharged from the pain program. Follow-up appointments will be arranged for refills as appropriate. Plan: Return to pain clinic approximately 1 week before alarm date for refill. documented in this encounter Miscellaneous Notes * Miscellaneous - Provider, Scanning - 07/26/2012 2:16 AM EDT documented in this encounter Plan of Treatment Upcoming Encounters Date Type Department Care Team (Late st Contact Info) Description 11/19/2023 2:30 PM EDT TH Visit (TeleHealth) [place] [address] Lilli Joy APRN 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 07/22/2012 ??9:41 AM Pain Medicine Intrathecal Pump Reprogramming or Adjustment Tana Cavazos [id number] Date of Programming/Adjustment: 07/22/12 Primary Mail Censor: ??Dr. Marino Supervisor Files: ??Chelsea Alva Reason for Reprogramming or Adjustment: Refill Rate Adjustment: No Diagnosis: Spasticity Concomitant Medical Problems: ?? Telemetry Pre-programming Reading: ?? Drug: Baclofen Concentration: 1000 mcg/ml Dose Delivery per day: 195.1 mcg/day Infusion Mode: ?? simple continuous ?? Telemetry Post-programming Reading: ?? Drug: Baclofen Concentration: 1000 mcg/ml (RX #[id number], discard date 08/28/12) Dose Delivery per day: 195.1 mcg/day Infusion Mode: ?? simple continuous ? Pump Capacity: [] 20 ml [xxx] 40 ml Expected Spiro Volume this visit: 2.6 ml Actual Spiro Volume this visit: 3.5 ml Medication or Dose Changes: [] Yes [xx] No Is dose change > 30%? [] Yes [x] No Is concentration or drug different? [] Yes [x] No New Pump Alarm Date: 01/30/2013 Has any program been used other than simple continuous or bridge bolus and simple continuous? ??NO Has reprogramming affected refill date and if so, has this been accommodated for? Yes Adverse Effect or System Complication from Reprogramming: ??NO If yes, description: Any change in concentration needed for the next visit? ?? NO Other Comments: ??Pump refilled no concerns; ROSHAN=22 months Pump Refill Procedure: Risks and expected side effects were reviewed with patient and his voiced concerns addressed. The printed consent form was signed and witnessed. Time Out was performed. Time Out was performed including verification of: [ X] patient name [ X] [ X] drug [X ] drug concentration on syringe containing pump refill medication. The pump was accessed via telemetry and [...] no more or no less than 5mls. 40 ml of the solution was instilled into the pump according to the binder and box builder's directions without difficulty. There was no evidence of over pressurization at the conclusion of the filling process. The Persaud needle was withdrawn and a bandaid was applied. The pump was then re-accessed via telemetry and reprogrammed to indicate the refill volume of 40 ml and any dose, concentration, or different drug used, as indicated above. The unused portion of the medication was discarded along with the old drug aspirated. Battery alarms reviewed and were appropriately enabled and in working order. Patient tolerated the procedure well and was discharged from the pain program. Follow-up appointments will be arranged for refills as appropriate. Plan: Return to pain clinic approximately 1 week before alarm date for refill. Procedure Note Woody Marino MD - 07/22/2012 9:15 AM EDT Pain Medicine Intrathecal Pump Reprogramming or Adjustment Tana Cavazos [id number] Date of Programming/Adjustment: 07/22/12 Primary Mail Censor: Dr. Marino Supervisor Files: Chelsea Alva Reason for Reprogramming or Adjustment: Refill Rate Adjustment: No Diagnosis: Spasticity Concomitant Medical Problems: Telemetry Pre-programming Reading: Drug: Baclofen Concentration: 1000 mcg/ml Dose Delivery per day: 195.1 mcg/day Infusion Mode: simple continuous Telemetry Post-programming Reading: Drug: Baclofen Concentration: 1000 mcg/ml (RX #[id number], discard date 08/28/12) Dose Delivery per day: 195.1 mcg/day Infusion Mode: simple continuous Pump Capacity: [] 20 ml [xxx] 40 ml Expected Spiro Volume this visit: 2.6 ml Actual Spiro Volume this visit: 3.5 ml Medication or Dose Changes: [] Yes [xx] No Is dose change > 30%? [] Yes [x] No Is concentration or drug different? [] Yes [x] No New Pump Alarm Date: 01/30/2013 Has any program been used other than simple continuous or bridge bolus andsimple continuous? NO Has reprogramming affected refill date and if so, has this beenaccommodated for? Yes Adverse Effect or System Complication from Reprogramming: NO If yes, description: Any change in concentration needed for the next visit? NO Other Comments: Pump refilled no concerns; ROSHAN=22 months Pump Refill Procedure: Risks and expected side effects were reviewed with patient and his voicedconcerns addressed. The printed consent form was signed and witnessed.Time Out was performed. Time Out was performed including verification of: [ X] patient name [ X] [ X] drug [X ] drug concentration on syringe containing pump refill medication. The pump was accessed via telemetry and the computer predicted residualvolume was noted as per above. Then chlorhexidine prep over the pumprefill site was performed. Sterile drapes were applied as provided withthe [employer] refill kit. A 22 gauge Persaud non-coring needle supplied withthe refill kit was inserted through the refill-template into the centralrefill port of the pump. The pump was aspirated for the above measuredresidual volume. This residual volume was discarded. Freshly preparedsolution of the medication(s) and concentration(s) as per above was usedto refill the pump. 5ml of solution was instilled and easily withdrawn, nomore or no less than 5mls. 40 ml of the solution was instilled into the pump according to themanufacturer's directions without difficulty. There was no evidence ofover pressurization at the conclusion of the filling process. The Huberneedle was withdrawn and a bandaid was applied. The pump was thenre-accessed via telemetry and reprogrammed to indicate the refill volumeof 40 ml and any dose, concentration, or different drug used, as indicatedabove. The unused portion of the medication was discarded along with theold drug aspirated. Battery alarms reviewed and were appropriately enabled and in workingorder. Patient tolerated the procedure well and was discharged from the painprogram. Follow-up appointments will be arranged for refills asappropriate. Plan: Return to pain clinic approximately 1 week before alarm date forrefill. Sammie Olmedo MD PROCEDURE/MINOR SURG ICAL ORDERABLES documented in [...] pain clinic compounded medication 1 each 1 each, Intrathecal, ONCE, 1 dose, On Dianne 07/22/12 at 0930, Routine, Medication Name and Dose: Baclofen 1000 mcg/ml - 40 ml - RX#[id number] Given 07/22/2012 9:33 AM EDT 1 each documented in this encounter Care Teams Animal Anatomist Relationship Specialty Start Date End Date Naina Lindsey MD [address] [place] [address] PCP - General 03/19/10 08/25/16 documented as of this encounter
--- OUTSIDE RECORDS SUMMARY | 2023-11-09 18:19 | XMS_ITS | Encounter Summary ---
Author Organization [facility] [place] [address] Care Team Providers Care Assistant Manager Name Role Phone Naina Lindsey MD Primary Care Provider [phone] Encounter Details Date Type Department Care Team (Late st Contact Info) Description 07/20/2012 Orders Only [place] [phone] Bigg Dunbar MD [facility] [place] [address] Social History Tobacco Use Types Packs/Day Years [...] EDT TH Visit (TeleHealth) [place] [phone] Lilli Joy APRN [facility] [place] [address] 11/30/2023 12:50 PM EDT Appointment [place] [phone] 12/03/2023 12:30 PM EDT Office [place] [phone] Hollie Ambriz MD [facility] [place] [address] documented as of this encounter Visit Diagnoses Not on filedocumented in this encounter Care Teams Assistant Manager Relationship Specialty Start Date End Date Naina Lindsey MD [address] [place] [address] [place] [address] PCP - General 03/19/10 08/25/16 documented as of this encounter
--- OUTSIDE RECORDS SUMMARY | 2023-11-09 18:19 | XMS_ITS | Encounter Summary ---
Author [facility] [place] [address] Care Team Providers Care Supplier Development Manager Name Role Phone Naina Lindsey MD Primary Care Provider [phone] Encounter Details Date Type Department Care Team (Latest Contact Info) Description 01/12/2012 11:15 AM EDT Procedure [place] [phone] Bigg Dunbar MD [facility] [place] [address] Abnormal involuntary movements (Primary Dx) Discharge Disposition: Home Social History [...] Sign Reading Time Taken Comments Blood Pressure 123/95 01/12/2012 11:41 AM EDT Pulse 144 01/12/2012 11:41 AM EDT Temperature - - Respiratory Rate - - Oxygen Saturation - - Inhaled Oxygen Concentration - - Weight - - Height - - Body Mass Index - - documented in this encounter Progress Notes * Bigg Dunbar MD - 01/12/2012 1:15 PM EDT I was the attending physician supervising the resident in the above care and I was present with theresident for the entire procedure. Bigg Dunbar MD, MS * Farhana Lara - 01/12/2012 12:43 PM EDT Pump refill. Please see procedure note. documented in this encounter Procedure Notes * Farhana Lara - 01/12/2012 12:43 PM EDTAssociated Order(s): INTRATHECAL PUMP REFILL Pre-Procedure Diagnose(s): Abnormal involuntary movements(781.0) Pain Medicine Intrathecal Pump Reprogramming or Adjustment Tana S Dirk [id number] Date of Programming/Adjustment: January 12, 2012 Primary Rehabilitation Aide/Scheduler: Dr. Lara Freelance Makeup Artist: Dr. Dunbar Reason for Reprogramming or Adjustment: Refill Rate Adjustment: No Diagnosis: Spasticity Concomitant Medical Problems: Telemetry Pre-programming Reading: Drug: Baclofen Concentration: 1000 mcg/ml Dose Delivery per day: 195.1 mcg/day Infusion Mode: simple continuous Telemetry Post-programming Reading: Drug: Baclofen Concentration: 1000 mcg/ml Dose Delivery per day: 195.1 mcg/day Infusion Mode: simple continuous Pump Capacity: [] 20 ml [xxx] 40 ml Expected [place] Volume this visit: 4 ml Actual [place] Volume this visit: 5 ml Medication or Dose Changes: [] Yes [xx] No Is dose change > 30%? [] Yes [x] No Is concentration or drug different? [] Yes [x] No New Pump Alarm Date: 07/22/2012 Has any program been used other than simple continuous or bridge bolus and simple continuous? NO Has reprogramming affected refill date and if so, has this been accommodated for? Yes Adverse Effect or System Complication from Reprogramming: NO If yes, description: Any change in concentration needed for the next visit? NO Other Comments: Pump refilled no concerns Pump Refill Procedure: Risks and expected side [...] instilled into the pump according to the telegraphic instrument supervisor's directions without difficulty. There was no evidence [...] 1 week before alarm date for refill. Farhana Lara MD Fellow, Pain Medicine Pager [phone] documented in this encounter Miscellaneous Notes * Miscellaneous - Delbert, Technical Support Internship - 01/15/2012 4:53 PM EDT documented in this encounter Plan of Treatment Upcoming Encounters Date Type Department Care Team (Late st Contact Info) Description 11/19/2023 2:30 PM EDT TH Visit (TeleHealth) [place] [phone] Lilli Joy APRN [facility] [place] [address] 11/30/2023 12:50 PM EDT [place] [phone] 12/03/2023 12:30 PM EDT Office [place] [phone] Hollie Ambriz MD [facility] [address] documented as of this encounter Procedures Procedure Name Priority Date/Time Associated Diagnosis Comments INTRATHECAL PUMP REFILL Routine 01/12/2012 12:44 PM EDT Abnormal involuntary movements documented in this encounter Results * INTRATHECAL PUMP REFILL (01/12/2012 12:44 PM EDT) Narrative Farhana Lara - 01/12/2012 12:44 PM EDT Pain Medicine Intrathecal Pump Reprogramming or Adjustment Tana Cavazos [id number] Date of Programming/Adjustment: January 12, 2012 Primary Rehabilitation Aide/Scheduler: ??Dr. Lara ?? Freelance Makeup Artist: ??Dr. Dunbar Reason for Reprogramming or Adjustment: Refill Rate [...] [] 20 ml [xxx] 40 ml Expected [place] Volume this visit: 4 ml Actual [place] Volume this visit: 5 ml Medication or Dose Changes: [] Yes [xx] No Is dose change > 30%? [] Yes [x] No Is concentration or drug different? [] Yes [x] No New Pump Alarm Date: 07/22/2012 Has any program been used other than simple continuous or bridge bolus and simple continuous? ??NO Has reprogramming affected refill date and if so, has this been accommodated for? Yes Adverse Effect or System Complication from Reprogramming: ??NO If yes, description: Any change in concentration needed for the next visit? ?? NO Other Comments: ??Pump refilled no concerns Pump Refill Procedure: Risks and expected side [...] drapes were applied as provided with the [employer] refill kit. A 22 gauge Persaud non-coring [...] instilled into the pump according to the telegraphic instrument supervisor's directions without difficulty. There was no evidence [...] 1 week before alarm date for refill. Farhana Lara MD Fellow, Pain Medicine Pager [phone] Procedure Note Farhana Lara - 01/12/2012 12:43 PM EDT Pain Medicine Intrathecal Pump Reprogramming or Adjustment Tana Cavazos [id number] Date of Programming/Adjustment: January 12, 2012 Primary Rehabilitation Aide/Scheduler: Dr. Lara Freelance Makeup Artist: Dr. Dunbar Reason for Reprogramming or Adjustment: Refill Rate Adjustment: No Diagnosis: Spasticity Concomitant Medical Problems: Telemetry Pre-programming Reading: Drug: Baclofen Concentration: 1000 mcg/ml Dose Delivery per day: 195.1 mcg/day Infusion Mode: simple continuous Telemetry Post-programming Reading: Drug: Baclofen Concentration: 1000 mcg/ml Dose Delivery per day: 195.1 mcg/day Infusion Mode: simple continuous Pump Capacity: [] 20 ml [xxx] 40 ml Expected [place] Volume this visit: 4 ml Actual [place] Volume this visit: 5 ml Medication or Dose Changes: [] Yes [xx] No Is dose change > 30%? [] Yes [x] No Is concentration or drug different? [] Yes [x] No New Pump Alarm Date: 07/22/2012 Has any program been used other than simple continuous or bridge bolus andsimple continuous? NO Has reprogramming affected refill date and if so, has this beenaccommodated for? Yes Adverse Effect or System Complication from Reprogramming: NO If yes, description: Any change in concentration needed for the next visit? NO Other Comments: Pump refilled no concerns Pump Refill Procedure: Risks and expected side [...] Sterile drapes were applied as provided withthe [employer] refill kit. A 22 gauge Persaud non-coring [...] approximately 1 week before alarm date forrefill. Farhana Lara MD Fellow, Pain Medicine Pager [phone] Bigg Dunbar MD PROCEDURE/MINOR S URGICAL ORDERABLES documented in this encounter Visit Diagnoses Diagnosis Abnormal involuntary movements(781.0)- Primary Abnormal involuntary movements documented in this encounter Administered Medications Inactive Administered Medications - up to 3 most recent administrations Medication Order MAR Action Action Date Dose Rate Site pain clinic compounded medication 1 each 1 each, Intrathecal, ONCE, 1 dose, On Thu01/12/12 at 1300, Routine, Medication Name and Dose: Baclofen 1000 mcg/ml solution Lot [id number] Given 01/12/2012 12:38 PM EDT 1 each documented in this encounter Care Teams Supplier Development Manager Relationship Specialty Start Date End Date Naina Lindsey MD [address] [facility] [place] [address] PCP - General 03/19/10 08/25/16 documented as of this encounter
--- OUTSIDE RECORDS SUMMARY | 2023-11-09 18:19 | XMS_ITS | Encounter Summary ---
Author Organization Formerly [facility] [place] [address] Care Team Providers Care Esl Teacher Name Role Phone Naina Lindsey MD Primary Care Provider [phone] Reason for Visit * Reason Comments Cerebral Palsy Encounter Details Date Type Department Care Team (Latest Contact Info) Description 07/11/2011 8:30 AM EDT Procedure [place] [phone] Yudelka Coyne MD [facility] [place] [address] Spasticity (Primary Dx); Abnormal involuntary movements Discharge Disposition: Home Social History Tobacco Use [...] as of this encounter Progress Notes * Christiana Woods DO - 07/11/2011 7:16 PM EDT I was the attending physician supervising the resident in the above care. For the purposes of billing, the resident provided the care. Christiana Woods DO [facility] [place] [address] Dept: [phone] * Yudelka Coyne MD - 07/11/2011 10:56 AM EDT INTRATHECAL PUMP REFILL PROCEDURE NOTE WITH REPROGRAMMING Primary Satellite Tv Technician Installer: Dr. Steffany Coyne Air Launch Weapons Technician: Lucia Mazariegos LPN Reason for Reprogramming: refill Diagnosis: spasticity. Concomitant Medical Problems: CP Comments: Patient's mother would not like any dose changes today. Telemetry Pre-Refill Programming Reading: Drugs/Concentrations: Baclofen - Preservative Free - 1000 mcg/ml Daily Dose: 195.1mcg per day Telemetry Post-Refill Programming Reading: Drugs/Concentrations: Baclofen - Preservative Free - 1000 mcg/ml Daily Dose: 195.1mcg per day Brand/Compound: Compound. Pump Capacity: 40 mL Computer predicted residual volume in pump: 5cc Measured residual volume in pump: 7cc Medication or Dose Changes: no Is dose change >30%? n/a Is concentration of drug different? no Empty syringe concentration verified by lumber checker: no If concentration of drug is different, has a bridge bolus been programmed? no. Has any program been used other than simple continuous or bridge bolus and simple continuous? no Infusion Mode: simple continuous. New Alarm Date: 01/19/2012 PROCEDURE: Risks and expected side effects were reviewed with patient and her voiced concerns addressed. The printed consent form was signed and witnessed. Time out was performed including verification of. ?? Patient Name on RX: yes ?? Drug Name on RX:yes ?? Drug concentration on syringe containing pump refill medication: yes The pump was accessed via telemetry and the computer predicted residual volume was noted as per above. Then Chlorhexidine prep over the pump refill site was performed. Sterile drapes were applied as provided with the [employer] refill kit. A 22 gauge Persaud non-coring needle supplied with the refill kit was inserted through the refill-template into the central refill port of the pump. The pump was aspirated for the above measured residual volume. This residual volume was discarded. Freshly prepared solution of the drug(s) and concentration(s) as noted above was used to refill the pump 0. 5 ml of solution was instilled and easily withdrawn, no more and no less than 0.5 ml. A total of 40 ml of solution was instilled into the pump according to the oxyacetylene cutter's directions without difficulty. There was no evidence of over pressurization at the conclusion of the filling process. The Persaud needle was withdrawn and a Band-Aid was applied. The pump was then re-accessed via telemetry and reprogr ammed to indicate the refill volume of 40 ml. The unused portion of the medication was discarded along with the old drug aspirated. Battery alarms reviewed and were appropriately enabled and in working order. Patient tolerated the procedure well and was discharged from the [facility]. Follow-up appointments will be arranged for refills as appropriate. documented in this encounter Miscellaneous Notes * Miscellaneous - Delbert Hot Dog Vender - 07/15/2011 4:12 PM EDT documented in this encounter Plan of Treatment Upcoming Encounters Date Type Department Care Team (Late st Contact Info) Description 11/19/2023 2:30 PM EDT TH Visit (TeleHealth) [place] [phone] Lilli Joy APRN [facility] [place] [address] 11/30/2023 12:50 PM EDT [place] [phone] 12/03/2023 12:30 PM EDT Office [place] [phone] Hollie Ambriz MD [facility] [address] Scheduled Orders Name Type Priority Associated Diagnoses Orde r Schedule INTRATHECAL PUMP REFILL Procedures Routine Spasticity Abnormal involuntary movements Ordered: 07/11/2011 documented as of this encounter Visit Diagnoses Diagnosis Spasticity- Primary Abnormal involuntary movements Abnormal involuntary movements(781.0) Abnormal involuntary movements documented in this encounter Administered Medications Inactive Administered Medications - up to 3 most recent administrations Medication Order MAR Action Action Date Dose Rate Site pain clinic compounded medication 1 each 1 each, Intrathecal, ONCE, 1 dose, On Thu07/11/11 at 1115, Routine, Medication Name and Dose: baclofen 195.1mcg per day Given 07/11/2011 10:53 AM EDT 1 each documented in this encounter Care Teams Esl Teacher Relationship Specialty Start Date End Date Naina Lindsey MD [address] [place] [address] PCP - General 03/19/10 08/25/16 documented as of this encounter
--- OUTSIDE RECORDS SUMMARY | 2023-11-09 18:19 | XMS_ITS | Encounter Summary ---
[place] [address] Care Team Providers Care Kidney Trimmer Name Role Phone Naina Lindsey MD Primary Care Provider [phone] Reason for Visit * Reason Comments Pain Encounter Details Date Type Department Care Team (Latest Contact Info) Description 01/25/2014 4:00 PM EDT Procedure [place] [phone] [facility] [place] [address] Traumatic brain injury, subsequent encounter (Primary Dx) Discharge Disposition: Home Social History [...] Sign Reading Time Taken Comments Blood Pressure 131/70 01/25/2014 4:25 PM EDT Pulse 123 01/25/2014 4:25 PM EDT Temperature - - Respiratory Rate - - Oxygen Saturation 100% 01/25/2014 4:25 PM EDT Inhaled Oxygen Concentration - - Weight 47.6 kg (105 lb) 01/25/2014 4:25 PM EDT Height 157.5 cm (5' 2) 01/25/2014 4:25 PM EDT Body Mass Index 19.2 01/25/2014 4:25 PM EDT documented in this encounter Progress Notes * Donnell Dotson MD - 01/26/2014 7:41 AM EDT Attestation in chart SPL * Karen Early DO - 01/25/2014 6:00 PM EDT [facility] Intrathecal Pump Reprogramming Only Procedure Note Tana Cavazos [id number] Date of Refill: January 25, 2014 Primary Bolt Loader: KAREN EARLY DO Harvest Field Ticketer: Donnell Dotson MD Reason for Reprogramming: NA 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 no Is concentration or drug different? no Has any program been used other than simple continuous or bridge bolus and simple continuous? no Infusion Mode: yes Has reprogramming affected refill date and if so, has this been accommodated for? Yes New Pump Alarm Date: 03/31/2014 (see below note ) PROCEDURE: Risks and expected side effects were reviewed with patient and her, and their voiced concerns addressed. Vital signs were taken and the patient's blood pressure was adequate. The pump was accessed via telemetry and the computer predicted residual volume was noted as per above. following interrogation of the pump it was noted that the ROSHAN was in 4 months. The significance of this was explained to the patient's mother and she had previously been unaware that the pump might need to be exchanged at some point. The patient had most recently undergone a right upper extremity tendon lengthening surgery because of her spasticity orthopedics at [facility]. Prior to this surgery the patient had been decreased on her dose with the intention to ultimately potentially beenher based on the mother's wishes. The pump had initially been implanted for hip spasticity however this patient his spasticity has been surgically addressed and it is unclear to the mother as to the need for further baclofen treatment. In-depth discussion was had with the patient's mother regardingthe need to make a decision regarding weaning versus replantation. Dr. Dotson sat down with the patient's mother as well and agreed that he would be happy to make himself available to conference the patient's physicians at [facility] as this decision is made. The mother will contact the orthopedic surgeon who performed the procedure to get his input as to whether he feels the baclofen has been helping. She will also request referral to a pediatric physiatry doctor at [facility] and will contact us back with her decision so we can plan for weaning versus replacement. KAREN EARLY DO I was the attending physician supervising the resident in the above care. For the purposes of billing, the resident provided the care. documented in this encounter Plan of Treatment Upcoming Encounters Date Type Department Care Team (Late st Contact Info) Description 11/19/2023 2:30 PM EDT TH Visit (TeleHealth) [place] [address] Lilli Joy APRN [facility] [place] [address] 11/30/2023 12:50 PM EDT [place]oint[place] [phone] 12/03/2023 12:30 PM EDT Office [place] [phone] Hollie Ambriz MD [facility] [place] [address] documented as of this encounter Visit Diagnoses Diagnosis Traumatic brain injury, subsequent encounter- Primary documented in this encounter Care Teams Kidney Trimmer Relationship Specialty Start Date End Date Naina Lindsey MD [address] [place] [address] [place] [address] PCP - General 03/19/10 08/25/16 documented as of this encounter
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
--- OUTSIDE RECORDS SUMMARY | 2023-11-09 18:19 | XMS_ITS | Encounter Summary ---
Author Organization [facility] [place] [address] Care Team Providers Care Jet Piercer Operator Name Role Phone Naina Lindsey MD Primary Care Provider [phone] Reason for Visit * Reason Comments Pain Pain, Chronic Encounter Details Date Type Department Care Team (Latest Contact Info) Description 03/15/2014 4:45 PM EST Procedure [place] [phone] Donnell Dotson MD [facility] [place] [address] Presence of intrathecal baclofen pump; Abnormal involuntary movements(571.0) Discharge Disposition: Home Social History Tobacco Use [...] Sign Reading Time Taken Comments Blood Pressure 125/43 03/15/2014 5:04 PM EST Pulse 126 03/15/2014 5:04 PM EST Temperature - - Respiratory Rate - - Oxygen Saturation 99% 03/15/2014 5:04 PM EST Inhaled Oxygen Concentration - - Weight 49.9 kg (110 lb) 03/15/2014 5:04 PM EST Height 157.5 cm (5' 2) 03/15/2014 5:04 PM EST Body Mass Index 20.12 03/15/2014 5:04 PM EST documented in this encounter Procedure Notes * Donnell Dotson MD - 03/15/2014 5:19 PM ESTAssociated Order(s): INTRATHECAL PUMP REPROGRAMMING Pre-Procedure Diagnose(s): Abnormal involuntary movements(781.0) Progress Note Patient is being seen here today to Evaluate to progress with tapering down of her intrathecal baclofen pump.. 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 Mother states that there is been no problems with the taper sofar. No change in personality , nausea vomiting itching, increase in spasticity. Exam patient is interacting appropriately. No change in spasticity as I can Best discern the pump was inquired. Currently receiving a simple continuous of baclofen at 112 mcg per day. This was decreased by 24% To 85 mcg per day. Assessment and plan She continues with the tapers going quite well. The next taper I believe should be done to 50 mcg. Then I would recommend 25 mcg and then I would recommend 10 mcg. We'll after withdrawal this solution I diluted so the last 2 Rates can be achieved. The lowest Baclofen infusion rate known to cause withdrawal symptoms as 25 mcg per day. Donnell Dotson MD Insurance Attorney of Anesthesiology [facility] documented in this encounter Plan of Treatment Upcoming Encounters Date Type Department Care Team (Late st Contact Info) Description 11/19/2023 2:30 PM EDT TH Visit (TeleHealth) Infectious Disease at [facility] [place] [phone] Lilli Joy APRN [facility] [place] [address] 11/30/2023 12:50 PM EDT Appointment Radiology at [facility] [place] [address] 12/03/2023 12:30 PM EDT Office Visit Infectious Disease at [facility] [place] [phone] Hollie Ambriz MD [facility] [place] [address] documented as of this encounter Procedures Procedure Name Priority Date/Time Associated Diagnosis Comments INTRATHECAL PUMP REPROGRAMMING Routine 03/15/2014 5:25 PM EST Abnormal involuntary movements(781.0) documented in this encounter Results * INTRATHECAL PUMP REPROGRAMMING (03/15/2014 5:25 PM EST) Narrative Donnell Dotson MD - 03/15/2014 5:25 PM EST Donnell Dotson MD ? 03/15/2014 ??5:25 PM Progress Note Patient is being seen here today to ??Evaluate to progress with tapering down of her intrathecal baclofen pump.. 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 Mother states that there is been no problems with the taper so far. No change in personality , nausea vomiting itching, increase in spasticity. Exam patient is interacting appropriately. No change in spasticity as I can ??Best discern the pump was inquired. Currently receiving a simple continuous of baclofen at 112 mcg per day. This was decreased by 24% ??To 85 mcg per day. Assessment and plan ??She continues with the tapers going quite well. The next taper I believe should be done to 50 mcg. Then I would recommend 25 mcg and then I would recommend 10 mcg. We'll after withdrawal this solution I diluted so the last 2 ??Rates can be achieved. The lowest ??Baclofen infusion rate known to cause withdrawal symptoms as 25 mcg per day. Donnell Dotson MD Insurance Attorney of Anesthesiology [facility] Donnell Dotson MD PROCEDURE/MINOR SURG ICAL ORDERABLES documented in this encounter Visit Diagnoses Diagnosis Presence of intrathecal baclofen pump Abnormal involuntary movements(781.0) Abnormal involuntary movements documented in this encounter Care Teams Jet Piercer Operator Relationship Specialty Start Date End Date Naina Lindsey MD [address] [place] [address] PCP - General 03/19/10 08/25/16 documented as of this encounter
--- OUTSIDE RECORDS SUMMARY | 2023-11-09 18:19 | XMS_ITS | Encounter Summary ---
Author Organization [facility] [address] Care Team Providers Care Brake Lining Driller Name Role Phone Naina Lindsey MD Primary Care Provider [phone] Encounter Details Date Type Department Care Team (Late st Contact Info) Description 03/10/2014 Orders Only [place] [phone] Alek Sinha [facility] [place] [address] Pre-op chest exam; Pre-op evaluation Social History Tobacco Use Types Packs/Day Years [...] EDT TH Visit (TeleHealth) [place] [phone] Lilli Joy BACK ROLL LATHE OPERATOR [facility] [place] [address] 11/30/2023 12:50 PM EDT [place] [address] 12/03/2023 12:30 PM EDT Office [place] [phone] Hollie Ambriz MD [facility] [place] [address] documented as of this encounter Visit Diagnoses Diagnosis Pre-op chest exam Pre-operative respiratory examination Pre-op evaluation Preoperative examination, unspecified documented in this encounter Care Teams Brake Lining Driller Relationship Specialty Start Date End Date Naina Lindsey MD [address] [place] [address] PCP - General 03/19/10 08/25/16 documented as of this encounter
--- OUTSIDE RECORDS SUMMARY | 2023-11-09 18:19 | XMS_ITS | Encounter Summary ---
Author Organization [facility] [place] [address] Care Team Providers Care Services Host Name Role Phone Naina Lindsey MD Primary Care Provider [phone] Encounter Details Date Type Department Care Team (Late st Contact Info) Description 12/22/2012 Orders Only [place] [address] Christiano Floyd MD [facility] [place] [address] Social History Tobacco Use Types Packs/Day Years [...] TH Visit (TeleHealth) [place] [address]-1000 Lilli Joy APRN [facility] [place] [address] 11/30/2023 12:50 PM EDT [place] [address]1000 12/03/2023 12:30 PM EDT Office Visit [place] [address] Hollie Ambriz MD [facility] [place] [address] documented as of this encounter Visit Diagnoses Not on filedocumented in this encounter Care Teams Services Host Relationship Specialty Start Date End Date Naina Lindsey MD [address] [place] [address] [place] [address] PCP - General 03/19/10 08/25/16 documented as of this encounter
--- OUTSIDE RECORDS SUMMARY | 2023-11-09 18:19 | XMS_ITS | Encounter Summary ---
Author Organization [facility] [place] [address] Care Team Providers Care Assembler Tubing Name Role Phone Naina Lindsey MD Primary Care Provider [phone] Encounter Details Date Type Department Care Team (Late st Contact Info) Description 07/08/2012 Orders Only [place] [address] Bigg Dunbar MD [facility] [place] [address] Spasticity (Primary Dx) Social History Tobacco Use [...] EDT TH Visit (TeleHealth) [place] [address] Lilli Joy APRN [facility] [place] [address] 11/30/2023 12:50 PM EDT [place] [address] 12/03/2023 12:30 PM EDT Office [place] [address] Hollie Ambriz MD [facility] [place] [address] documented as of this encounter Visit Diagnoses Diagnosis Spasticity- Primary Abnormal involuntary movements documented in this encounter Care Teams Assembler Tubing Relationship Specialty Start Date End Date Naina Lindsey MD [address] [place] [address] [place] [address] PCP - General 03/19/10 08/25/16 documented as of this encounter
--- OUTSIDE RECORDS SUMMARY | 2023-11-09 18:19 | XMS_ITS | Encounter Summary ---
Author Organization [facility] [place] [address] Care Team Providers Care Poultry Culler Name Role Phone Lorna Bal APRN Primary Care Provider [phone] Encounter Details Date Type Department Care Team (Late st Contact Info) Description 12/21/2013 Interpretation [place] [phone] Chuckie Mayfield MD [facility] [place] [address] Social History Tobacco Use Types Packs/Day Years [...] EDT TH Visit (TeleHealth) [place] [address] Lilli Joy APRN [facility] [place] [address] 11/30/2023 12:50 PM EDT [place] [address] 12/03/2023 12:30 PM EDT Office [place] [address] Hollie Ambriz MD [facility] [place] [address] documented as of this encounter Procedures Procedure Name Priority Date/Time Associated Diagnosis Comments FILM LIBRARY STORAGE ONLY DX WRIST Routine 12/21/2013 1:40 PM EDT documented in this encounter Results * Film Library- Storage Only DX Wrist (12/21/2013 1:40 PM EDT) 08/10/2023 3:14 PM EDT Narrative [facility] - 08/10/2023 3:14 PM EDT This exam is auto-finalizing. It's purpose is for storage only. Chuckie Mayfield MD IMG FILM LIBRARY ORD ERABLES [place], [place] documented in this encounter Visit Diagnoses [...] documented as of this encounter Care Teams Poultry Culler Relationship Specialty Start Date End Date Lorna Bal APRN [address] [place] [address] PCP - General Family Medicine 05/27/18 documented as of this encounter
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
--- OUTSIDE RECORDS SUMMARY | 2023-11-09 18:19 | XMS_ITS | Encounter Summary ---
Author Organization [facility] [place] [address] Care Team Providers Care Supervisor [employer]er Farm Name Role Phone Naina Lindsey MD Primary Care Provider [phone] Reason for Visit * Reason Onset Date Comments Blindness 12/27/2011 Encounter Details Date Type Department Care Team (Late st Contact Info) Description 12/27/2011 Telephone [place] [phone] Aquiles Smith MD [facility] [place] [address] Blindness Social History Tobacco Use Types Packs/Day Years [...] encounter Miscellaneous Notes * Telephone Encounter - Aquiles Smith MD - 12/27/2011 10:51 AM EDT I have today spoken to Ms. Cristiano Thorpe (nother) over phone, to reply her questions that she e-mailedto us regarding Tana's proposed revision spine surgery. Specifically she asked questions about the risk of blindness and rationale for surgery. I have today explained, that blindness is a rare but definite important risk factor to be considered prior to spinal surgery. Although there are many possible factors that may influence blindness after spinal surgery, like pressure in prone position, blood loss, hypotension, blood clots etc, but the definitive caue is still unknown, and there is no definitive measure that may prevent blindness altogether. The rationale for surgery is to help improve sitting posture. If her current sitting balance is felt adequate for her comfortable sitting in a wheel chair or on bed, with support, then there is no need for further surgery. If she develops pressure sores to skin from additional support in a wheel chair to help sitting upright, then further surgery may be appropriate. Compared to her pre-op sitting balance there has not been any improvement with the first surgery. Therefore the reason for having surgery remains the same as for the first surgery. However to improve sitting posture and spinal balance she will require a spinal osteotomy, with revision of hardware, which make the revision surgerymore extensive and carries greater risk factor. Tana's mother Still was happy with the discussion and will connect with us towards the end of the year, as she prefers to schedule the surgery around April 2012. documented in this encounter Plan of Treatment Upcoming Encounters Date Type Department Care Team (Late st Contact Info) Description 11/19/2023 2:30 PM EDT TH Visit (TeleHealth) [place] [phone] Lilli Joy APRN [facility] [place] [address] 11/30/2023 12:50 PM EDT Appointment [place] [phone] 12/03/2023 12:30 PM EDT Office Visit [place] [address]1000 Hollie Ambriz MD [facility] [place] [address] documented as of this encounter Visit Diagnoses Not on filedocumented in this encounter Care Teams Supervisor Fryer Farm Relationship Specialty Start Date End Date Naina Lindsey MD [address] [place] [address] [place] [address] PCP - General 03/19/10 08/25/16 documented as of this encounter
--- OUTSIDE RECORDS SUMMARY | 2023-11-09 18:19 | XMS_ITS | Encounter Summary ---
Author Organization [facility] Address [facility] [place] [address] Care Team Providers Care Systems Programmer Analyst Name Role Phone Naina Lindsey MD Primary Care Provider [phone] Reason for Visit * Reason Comments Follow-up PRE-SURGERY QUESTION S Encounter Details Date Type Department Care Team (Late st Contact Info) Description 05/03/2014 3:00 PM EST Follow-[place] [address] Jamaal Samuel MD [facility] DR [place] [address] Presence of intrathecal baclofen pump Discharge Disposition: Home Social History Tobacco Use [...] Sign Reading Time Taken Comments Blood Pressure 130/92 05/03/2014 3:15 PM EST Pulse - - Temperature - - Respiratory Rate - - Oxygen Saturation - - Inhaled Oxygen Concentration - - Weight 47.6 kg (105 lb) 05/03/2014 3:15 PM EST Height - - Body Mass Index 19.2 03/15/2014 5:04 PM EST documented in this encounter Progress Notes * Jamaal Samuel MD - 05/03/2014 4:00 PM EST Interval History: Tana is a now 18-year-old woman whom I last saw February 28, 2014 for baclofen pump removal. She had a pump placed for increased extremity tone at [facility] in 2007 but mom believes the pump has not been helpful and the pump has been titrated to off by Dr. Dotson. Mom and her brother are here with Tana today. Mom states that Allans tone really has not changed a lot since weaning the pump although she occasionally will have some extremity muscle spasms. Mom says she currently does not have any physician that will manage Tana's overall spasticity and problems and so we talked about possible options for this today. Tana has had no evidence of recent infection and I discussed risks and benefits of pump removal including risks of spinal fluid leak and infection and mom would like to proceed with pump removal. She understands that Tana needs a referral to adult physicians for spasticity management and I have given her the names of a few of our neurologists who might be able to be helpful with this. Today I spent 25 minutes with Tana, 20 of which was in preoperative counseling regarding decision for surgery for pump removal. documented in this encounter Plan of Treatment Upcoming Encounters Date Type Department Care Team (Late st Contact Info) Description 11/19/2023 2:30 PM EDT TH Visit (TeleHealth) [place] [address] Lilli Joy APRN [facility] [place] [address] 11/30/2023 12:50 PM EDT Appointment Radiology at [facility] [place] [address] 12/03/2023 12:30 PM EDT Office [place] [address] Hollie Ambriz MD [facility] [place] [address] documented as of this encounter Visit Diagnoses Diagnosis Presence of intrathecal baclofen pump documented in this encounter Care Teams Systems Programmer Analyst Relationship Specialty Start Date End Date Naina Lindsey MD [address] [place] [address] [place] [address] PCP - General 03/19/10 08/25/16 documented as of this encounter
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
--- OUTSIDE RECORDS SUMMARY | 2023-11-09 18:19 | XMS_ITS | Encounter Summary ---
Author Organization Formerly [facility] [place] [address] Care Team Providers Care Lineman Service Or Work Dispatcher Name Role Phone Naina Lindsey MD Primary Care Provider [phone] Encounter Details Date Type Department Care Team (Late st Contact Info) Description 01/05/2012 Orders [place] [phone] Christiano Floyd MD [facility] [place] [address] Spasticity (Primary Dx) Social History Tobacco Use [...] EDT TH Visit (TeleHealth) [place] [phone] Lilli Joy APRN [facility] [place] [address] 11/30/2023 12:50 PM EDT Appointment [place] [address] 12/03/2023 12:30 PM EDT Office Visit [place] [address] Hollie Ambriz MD [facility] DR INFECTI[place] [address] documented as of this encounter Visit Diagnoses Diagnosis Spasticity- Primary Abnormal involuntary movements documented in this encounter Care Teams Lineman Service Or Work Dispatcher Relationship Specialty Start Date End Date Naina Lindsey MD [address] [place] [address] [place] [address] PCP - General 03/19/10 08/25/16 documented as of this encounter
--- OUTSIDE RECORDS SUMMARY | 2023-11-09 18:19 | XMS_ITS | Encounter Summary ---
Author Organization [facility] [place] [address] Care Team Providers Care Cyber Defense Forensics Analyst Name Role Phone Naina Lindsey MD Primary Care Provider [phone] Encounter Details Date Type Department Care Team (Late st Contact Info) Description 07/08/2012 Orders [place] [address] Aniket Heredia MD [facility] [place] [address] Spasticity (Primary Dx) Social History Tobacco Use [...] EDT TH Visit (TeleHealth) [place] [address] Lilli Joy APRN [facility] [place] [address] 11/30/2023 12:50 PM EDT [place] [address] 12/03/2023 12:30 PM EDT Office [place] [address] Hollie Ambriz MD [facility] [place] [address] documented as of this encounter Visit Diagnoses Diagnosis Spasticity- Primary Abnormal involuntary movements documented in this encounter Care Teams Cyber Defense Forensics Analyst Relationship Specialty Start Date End Date Naina Lindsey MD [address] [place] [address] [place] [address] PCP - General 03/19/10 08/25/16 documented as of this encounter
--- OUTSIDE RECORDS SUMMARY | 2023-11-09 18:19 | XMS_ITS | Encounter Summary ---
Author Organization [facility] [place] [address] Care Team Providers Care Diesel Dragline Operator Name Role Phone Naina Lindsey MD Primary Care Provider [phone] Encounter Details Date Type Department Care Team (Late st Contact Info) Description 06/16/2013 Orders [place] [address] Christiano Floyd MD [facility] [place] [place] [address] Social History Tobacco Use Types Packs/Day Years [...] EDT TH Visit (TeleHealth) [place] [address] Lilli Joy APRN [facility] [place] [address] 11/30/2023 12:50 PM EDT [place]oint[place] [address] 12/03/2023 12:30 PM EDT Office [place] [address]1000 Hollie Ambriz MD [facility] [place] [address] documented as of this encounter Visit Diagnoses Not on filedocumented in this encounter Care Teams Diesel Dragline Operator Relationship Specialty Start Date End Date Naina Lindsey MD [address] [place] [address] [place] [address] PCP - General 03/19/10 08/25/16 documented as of this encounter
--- OUTSIDE RECORDS SUMMARY | 2023-11-09 18:19 | XMS_ITS | Encounter Summary ---
Author [place] [address] Care Team Providers Care Preload Supervisor Name Role Phone Naina Lindsey MD Primary Care Provider [phone] Reason for Visit * Reason Onset Date Comments Other 03/14/2011 Encounter Details Date Type Department Care Team (Late st Contact Info) Description 03/14/2011 Tele[place] [phone] Mony Fierro RN Other Social History Tobacco Use Types Packs/Day [...] encounter Miscellaneous Notes * Telephone Encounter - Mony Fierro RN - 03/14/2011 3:56 PM EST PT called as she is struggling with positioning in her chair and pooling in her lower extremities. She can't tolerate sitting upright in her chair secondary to pooling. Discussed this also with Bart Denis PT from [place] [facility] who has been unable to find a creative way to avoid this with her seating. Discussed with Dr. Ramirez who will evaluate at her appointment on 03/31. documented in this encounter Plan of Treatment Upcoming Encounters Date Type Department Care Team (Late st Contact Info) Description 11/19/2023 2:30 PM EDT TH Visit (TeleHealth) [place] [address]-1000 Lilli Joy APRN [facility] [place] [address] 11/30/2023 12:50 PM EDT [place] [address] 12/03/2023 12:30 PM EDT Office [place] [address] Hollie Ambriz MD [facility] [address] documented as of this encounter Visit Diagnoses Not on filedocumented in this encounter Care Teams Preload Supervisor Relationship Specialty Start Date End Date Naina Lindsey MD [address] [place] [address] [place] [address] PCP - General 03/19/10 08/25/16 documented as of this encounter
--- OUTSIDE RECORDS SUMMARY | 2023-11-09 18:19 | XMS_ITS | Encounter Summary ---
Author Organization [facility] [place] [address] Care Team Providers Care Assurance Assistant Name Role Phone Naina Lindsey MD Primary Care Provider Encounter Details Date Type Department Care Team (Latest Contact Info) Description 05/03/2014 4:15 PM EST Procedure visit [place] [phone] Donnell Dotson MD [facility] [place] [address] Presence of intrathecal baclofen pump Discharge Disposition: [...] Sign Reading Time Taken Comments Blood Pressure 112/77 05/03/2014 4:36 PM EST Pulse - - Temperature - - Respiratory Rate - - Oxygen Saturation - - Inhaled Oxygen Concentration - - Weight 49.9 kg (110 lb) 05/03/2014 4:36 PM EST Height 157.5 cm (5' 2) 05/03/2014 4:36 PM EST Body Mass Index 20.12 05/03/2014 4:36 PM EST documented in this encounter Progress Notes * Donnell Dotson MD - 05/07/2014 12:38 PM EST Progress Note Patient is being seen here today to continuing to taper off of the intrathecal baclofen.. The patient has the diagnosis of intrathecal pump is no longer needed. She no longer needs the baclofen to treat her spasticity. There were no problems from tapering from 50 mcg to 25 mcg per day of intrathecal baclofen. No irritability change in personality itching or psychosis. Slight increase in spasticity only in the late afternoons treated with Valium. Past medical, past surgical, social and family history, medications, and allergies were documented as reviewed in the electronic medical record. A review of systems of 10 systems was also obtained today. All systems were negative. Exam The usual normal appearance, typical of a traumatic brain injury The pump was inquired. She is receiving 25 mcg per day of intrathecal baclofen. This was decreased down to 12 mcg per day. Assessment and plan She has not a safe level where the pump can be taken out without any fear of baclofen withdrawal. She has surgery scheduled with Dr. Jamaal Samuel relatively soon. Donnell Dotson MD Garbage Truck Dispatcher of Anesthesiology [facility] documented in this encounter Plan of Treatment Upcoming Encounters Date Type Department Care Team (Late st Contact Info) Description 11/19/2023 2:30 PM EDT TH Visit (TeleHealth) [place] [address] Lilli Joy APRN [facility] [place] [address] 11/30/2023 12:50 PM EDT [place] [address] 12/03/2023 12:30 PM EDT Office [place] [address] Hollie Ambriz MD [facility] [place] [address] documented as of this encounter Visit Diagnoses Diagnosis Presence of intrathecal baclofen pump documented in this encounter Care Teams Assurance Assistant Relationship Specialty Start Date End Date Naina Lindsey MD [address] [place] [address] PCP - General 03/19/10 08/25/16 documented as of this encounter
--- OUTSIDE RECORDS SUMMARY | 2023-11-09 18:19 | XMS_ITS | Encounter Summary ---
Author Organization [facility] [place] [address] Care Team Providers Care Speech Language Pathologist Travel Name Role Phone Naina Lindsey MD Primary Care Provider [phone] Encounter Details Date Type Department Care Team (Late st Contact Info) Description 03/03/2014 External Results [place] [address] Donnell Dotson MD [facility] [place] [address] Social History Tobacco Use Types Packs/Day Years [...] EDT TH Visit (TeleHealth) [place] [address]-1000 Lilli Joy APRN [facility] [place] [address] 11/30/2023 12:50 PM EDT Appointment [place] [address] 12/03/2023 12:30 PM EDT Office Visit [place] [address] Hollie Ambriz MD [facility] [place] [address] documented as of this encounter Procedures Procedure Name Priority Date/Time Associated Diagnosis Comments IMPLANTABLE DEVICES SCAN Routine 02/28/2014 8:00 AM EST IMPLANTABLE DEVICES SCAN Routine 02/15/2014 8:41 AM EDT IMPLANTABLE DEVICES SCAN Routine 02/09/2014 8:42 AM EDT IMPLANTABLE DEVICES SCAN Routine 01/25/2014 9:19 AM EDT documented in this encounter Visit Diagnoses Not on filedocumented in this encounter Care Teams Speech Language Pathologist Travel Relationship Specialty Start Date End Date Naina Lindsey MD [address] [address] PCP - General 03/19/10 08/25/16 documented as of this encounter
--- OUTSIDE RECORDS SUMMARY | 2023-11-09 18:19 | XMS_ITS | Encounter Summary ---
Author [place] [address] Care Team Providers Care Ultrasound Tech Name Role Phone Naina Lindsey MD Primary Care Provider [phone] Encounter Details Date Type Department Care Team (Late st Contact Info) Description 08/01/2012 Notes [place] [address] Chelsea Alva RN Social History Tobacco Use Types Packs/Day [...] as of this encounter Progress Notes * Chelsea Alva RN - 08/01/2012 8:07 PM EDT Wasted 40ml of Baclofen 1000mcg/ml intended for intrathecal use. Medication was compounded by [facility]. Wasted by myself and witnessed by Emelyn Sarabia LPN. documented in this encounter Plan of Treatment Upcoming Encounters Date Type Department Care Team (Late st Contact Info) Description 11/19/2023 2:30 PM EDT TH Visit (TeleHealth) [place] [address] Lilli Joy APRN [facility] [place] [address] 11/30/2023 12:50 PM EDT [place]ointment [place] [address] 12/03/2023 12:30 PM EDT Office [place] [address] Hollie Ambriz MD [facility] [place] [address] documented as of this encounter Visit Diagnoses Not on filedocumented in this encounter Care Teams Ultrasound Tech Relationship Specialty Start Date End Date Naina Lindsey MD [address] [place] [address] [place] [address] PCP - General 03/19/10 08/25/16 documented as of this encounter
--- OUTSIDE RECORDS SUMMARY | 2023-11-09 18:19 | XMS_ITS | Encounter Summary ---
Author Organization [facility] [place] [address] Care Team Providers Care Team Leader/Research Psychologist Name Role Phone Naina Lindsey MD Primary Care Provider [phone] Encounter Details Date Type Department Care Team (Late st Contact Info) Description 07/12/2012 Telephone [place] [address] Aniket Heredia MD [facility] [place] [address] Social History Tobacco Use Types Packs/Day Years [...] Encounter - Aniket Heredia MD - 07/12/2012 4:28 PM EDT Returned call to both work and home numbers. Was unable to reach Cristiano (pt's mother). Was told at home number that mother had some errands and would be home later. Requested that patient's mom call [employer] and ask for on-call pain service when she does so. Aniket Heredia MD documented in this encounter Plan of Treatment Upcoming Encounters Date Type Department Care Team (Late st Contact Info) Description 11/19/2023 2:30 PM EDT TH Visit (TeleHealth) [place] [address] Lilli Joy APRN [facility] [place] [address] 11/30/2023 12:50 PM EDT [place] [address] 12/03/2023 12:30 PM EDT Office [place] [address] [facility] [place] [address] documented as of this encounter Visit Diagnoses Not on filedocumented in this encounter Care Teams Team Leader/Research Psychologist Relationship Specialty Start Date End Date Naina Lindsey MD [address] [place] [address] [place] [address] PCP - General 03/19/10 08/25/16 documented as of this encounter
--- OUTSIDE RECORDS SUMMARY | 2023-11-09 18:19 | XMS_ITS | Encounter Summary ---
Author Organization [facility] [place] [address] Care Team Providers Care Boiler House Inspector Name Role Phone Naina Lindsey MD Primary Care Provider Reason for Referral * Consultation (Routine) - Closed Specialty Diagnoses / Procedures Referred By Contac t Referred To Contact Pain Management Diagnoses Scoliosis Jamar Dodd III, MD [facility] [place] [address] [facility] [address] [place] [address] Referral ID Status Reason Start Date Expiration Date V isits Requested Visits Authorized [id number] Closed Consult Only 12/16/2011 06/13/2012 1 1 * Consultation (Routine) - Complete - Unable to Contact Patient Specialty Diagnoses / Procedures Referred By Contac t Referred To Contact Pediatrics Diagnoses Scoliosis pre operative evaluation and to establish contact for future surgery at [facility] per Jamar Whiting III, MD [facility] [place] [address] [facility] [address] [place] [phone] Referral ID Status Reason Start Date Expiration Date Visits Requested Visits Authorized [id number] Complete - Unable to Contact Patient Consult Only 12/16/2011 06/13/2012 1 1 * Surgical (Routine) - Closed by system - Referral Specialty Diagnoses / Procedures Referred By Contac t Referred To Contact Anesthesiology Diagnoses Scoliosis Aquiles Smith MD [facility] [place] [address] [place] [address] Referral ID Status Reason Start Date Expiration Date Visits Requested Visits Authorized [id number] Closed by system - Referral Consult, Test & Treat 12/16/2011 06/13/2012 1 1 Reason for Visit * Reason Comments Follow Up Surgery Bilat. Hip DOS 2010 Encounter Details Date Type Department Care Team (Late st Contact Info) Description 12/16/2011 1:30 PM EDT Office Visit Orthopaedics at [place] [phone] Aquiles Smith MD [facility] [place] [address] Scoliosis (Primary Dx) Discharge Disposition: Home Social History [...] - - Weight 47.6 kg (105 lb) 12/16/2011 1:21 PM EDT Height - - Body Mass Index - - documented in this encounter Progress Notes * Jamar Dodd III, MD - 12/16/2011 5:29 PM EDT DATE OF SERVICE: 12/16/2011 RESPONSIBLE ATTENDING: Aquiles Smith MD REASON FOR EVALUATION: Followup on scoliosis status post fusion with Dr. Ramirez. INTERVAL HISTORY: Tana returns with her mom today for discussion of correction of residual scoliosis status post posterior fusion on 03/20/2009. At the prior visit with Dr. Ramirez in 04/2011, they discussed potential revision given her residual curve. Mom states that Tana is doing quite well, in fact has been making some progress with her verbal communication. She remains able to feed by mouth, however uses diapers for bowel and bladder function. Mom is very concerned today about the progression of the left-sided flank crease that is becoming quite difficult to provide adequate hygiene for. In addition, she is having difficulty using her ???strong arm,?? which is her left arm because of her significant curve. Tana has been fitted fora custom wheelchair that is working well. She is wheelchair bound with essentially no meaningful lower extremity function. They would like to discuss revision surgery today. PHYSICAL EXAMINATION: Tana is very pleasant, alert, interactive at times, able to communicate ???yes.?? Is sitting in her partially reclined wheelchair. Has flexion contractures of bilateral knees.Mom states that she has some sensation, but very limited. She is nonambulatory, wheelchair bound. There are no skin lesions or evidence of ulcers or breakdown. She has a significant flank Crease.Diaper in place. IMAGING: Imaging reveals that the distal fixation to the left ileum has become detached. Otherwise, all hardware appears to be stable with no significant change in alignment. The image is seated AP, and shows significant right lumbar curve. Baclofen pump is in place. 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 We discussed the different treatment options at this time ranging from observation to revision surgery. We discussed that although Dr. Ramirez had eluded to a three-staged procedure, we felt that it would be possible to do this in a one-staged procedure, although given the fusion segment, need for osteotomy, and revision of hardware that significant blood loss could be expected. We also discussed the risk of cord injury and paralysis; however, given the fact that she has very minimal motor function distally that this is not of our greatest concern as our priority would be restoring her alignment for hygiene, pulmonary, and functional purposes. Mother is very interested in pursuing operative intervention. Dr. Smith discussed the risks and benefits of the procedure with the patient today and it will tentatively be scheduled for February. documented in this encounter Plan of Treatment Upcoming Encounters Date Type Department Care Team (Late st Contact Info) Description 11/19/2023 2:30 PM EDT TH Visit (TeleHealth) [place] [address] Lilli Joy APRN [facility] [place] [address] 11/30/2023 12:50 PM EDT [place] [address] 12/03/2023 12:30 PM EDT Office [place] [address] Hollie Ambriz MD [facility] [place] [address] Scheduled Referrals Name Type Priority Associated Diagnoses Order Schedule REFERRAL TO GENERAL ANESTHESIOLOGY Outpatient Referral Routine Scoliosis Ordered: 12/16/2011 REFERRAL TO PEDIATRICS Outpatient Referral Routine Scoliosis Ordered: 12/16/2011 REFERRAL TO PAIN CLINIC Outpatient Referral Routine Scoliosis Ordered: 12/16/2011 documented as of this encounter Visit Diagnoses Diagnosis Scoliosis- Primary Scoliosis (and kyphoscoliosis), idiopathic documented in this encounter Care Teams Boiler House Inspector Relationship Specialty Start Date End Date Naina Lindsey MD [address] [place] [address] PCP - General 03/19/10 08/25/16 documented as of this encounter
--- OUTSIDE RECORDS SUMMARY | 2023-11-09 18:19 | XMS_ITS | Encounter Summary ---
Author Organization [facility] [place] [address] Care Team Providers Care Supervisor Sawmill Name Role Phone Naina Lindsey MD Primary Care Provider [phone] Reason for Visit * Reason Onset Date Comments Medication Refill 11/08/2013 Encounter Details Date Type Department Care Team (Late st Contact Info) Description 11/08/2013 Refill [place] [address] Aida Carey, CONTINUOUS IMPROVEMENT LEAD Social History Tobacco Use Types Packs/Day Years [...] TH Visit (TeleHealth) [place] [address] Lilli Joy, [facility] [address] 11/30/2023 12:50 PM EDT Appointment [place] [address] 12/03/2023 12:30 PM EDT Office Visit [place] [address] Hollie Ambriz MD [facility] DR INFECTIOUS [place] [address] documented as of this encounter Visit Diagnoses Not on filedocumented in this encounter Care Teams Supervisor Sawmill Relationship Specialty Start Date End Date Naina Lindsey MD [address] [place] [address] PCP - General 03/19/10 08/25/16 documented as of this encounter
--- OUTSIDE RECORDS SUMMARY | 2023-11-09 18:19 | XMS_ITS | Encounter Summary ---
Author Organization [facility] [place] [address] Care Team Providers Care Stock Holder Name Role Phone Naina Lindsey MD Primary Care Provider [phone] Reason for Referral * Consultation (Routine) - Complete - Patient Will Schedule External Appt Specialty Diagnoses / Procedures Referred By Contac t Referred To Contact Orthotics Diagnoses Edema leg Scoliosis Acquired dysplasia of hip Traumatic brain injury Yas Ramirez MD [facility] [place] [address] Referral ID Status Reason Start Date Expiration Date Visits Requested Visits Authorized [id number] Complete - Patient Will Schedule External Appt Consult, Test & Treat 1 10/13/2011 1 1 Encounter Details Date Type Department Care Team (Late st Contact Info) Description 04/16/2011 Orders Only [place] [address] Yas Ramirez MD [facility] [place] [address] Edema leg; Scoliosis; Acquired dysplasia of hip, bilateral; 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 Social History Tobacco Use Types Packs/Day Years [...] EDT TH Visit (TeleHealth) [place] [address] Lilli Joy APRN [facility] [place] [address] 11/30/2023 12:50 PM EDT Appointment [place] [address] 12/03/2023 12:30 PM EDT Office Visit [place] [address] Hollie Ambriz MD [facility] [place] [address] Scheduled Referrals Name Type Priority Associated Diagnoses Orde r Schedule REFERRAL FOR ORTHOTICS Outpatient Referral Routine Edema leg Scoliosis Acquired dysplasia of hip, 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 Ordered: 04/16/2011 documented as of this encounter Visit Diagnoses Diagnosis Edema leg Edema Scoliosis Scoliosis (and kyphoscoliosis), idiopathic Acquired dysplasia of hip, bilateral Other acquired deformities of hip 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
--- OUTSIDE RECORDS SUMMARY | 2023-11-09 18:19 | XMS_ITS | Encounter Summary ---
Author Organization [facility] [place] [address] Care Team Providers Care Family Service Center Director Name Role Phone Naina Lindsey MD Primary Care Provider Reason for Visit * Reason Comments Other pump wean Encounter Details Date Type Department Care Team (Latest Contact Info) Description 02/09/2014 11:45 AM EDT Procedure [place] [phone] Donnell Dotson MD [facility] [place] [address] Traumatic brain injury, sequela; Abnormal involuntary movements(201.0) Discharge Disposition: Home Social History Tobacco Use [...] Sign Reading Time Taken Comments Blood Pressure 127/75 02/09/2014 11:53 AM EDT Pulse 100 02/09/2014 11:53 AM EDT Temperature - - Respiratory Rate - - Oxygen Saturation 98% 02/09/2014 11:53 AM EDT Inhaled Oxygen Concentration - - Weight 49.9 kg (110 lb) 02/09/2014 11:53 AM EDT Height 162.6 cm (5' 4) 02/09/2014 11:53 AM EDT Body Mass Index 18.88 02/09/2014 11:53 AM EDT documented in this encounter Patient Instructions * Patient Instructions* Kirsty Mccormick - 02/09/2014 12:29 PM EDT I would like you to sign up for myD-H, which will give you secure online access to your electronic medical record at [facility] and the ability to communicate with your health care team whenand where it???s most convenient for you. With myD-H you will be able to: - look at parts of your medical record including test results and office notes - send and receive messages to/from me and your other providers - renew prescriptions - schedule appointments. To sign up, go to [email or web address] and click I have an activation code and follow the instructions. Here is your activation code: [email or web address] Expires: 03/26/2014 12:29 PM Remember, myD-H is NOT for urgent needs! Always dial 911 for medical emergencies. documented in this encounter Procedure Notes * Donnell Dotson MD - 02/09/2014 2:59 PM EDTAssociated Order(s): INTRATHECAL PUMP REPROGRAMMING Pre-Procedure Diagnose(s): Abnormal involuntary movements(781.0) Patient and mother coming today. Since he was last seen, the orthopedic surgeons and the rest of the team at [facility] have agreed that she no longer needs the intrathecal baclofen. She like to be tapered off the baclofen before the pump is basically no longer effective, 3 months from now. Looking at the [employer] website and calling the local [employer] baclofen pump veterans contact representative, we decided to decrease her pump by 10% this week. Reevaluate in one week. We can consider 10-20% decreases at a time. This is 20 mcg. The lowest effective dose that we can give with the pump is 50 mcg perday. We will then dilute the medication and then to switch her over to saline once she is decreasedto 10 mcg per day. The pump was inquired. Currently receiving baclofen 1000 mcg per cc, 200 g per day simple continuous infusion. Estimated replacement index of 3 months. 37.1 mL's remaining. Low reservoir alarm at thecurrent rate of August 05, 2014. The pump was decreased down to one and 75 mcg per day. Low reservoir alarm date of August 25, 2014. Followup next week. Counseling and coordination of care: 20 minutes out of total 25 face to face minutes for today's visit. Issues discussed: Various methods to taper off of baclofen were discussed. documented in this encounter Plan of Treatment Upcoming Encounters Date Type Department Care Team (Late st Contact Info) Description 11/19/2023 2:30 PM EDT TH Visit (TeleHealth) [place] [address] Lilli Joy APR[place] [facility] [place] [address] 11/30/2023 12:50 PM ED[place] [address] 12/03/2023 12:30 PM EDT Office [place] [address] Hollie Ambriz MD [facility] [place] [address] documented as of this encounter Procedures Procedure Name Priority Date/Time Associated Diagnosis Comments INTRATHECAL PUMP REPROGRAMMING Routine 02/09/2014 3:13 PM EDT Abnormal involuntary movements(781.0) documented in this encounter Results * INTRATHECAL PUMP REPROGRAMMING (02/09/2014 3:13 PM EDT) Narrative Donnell Dotson MD - 02/09/2014 3:13 PM EDT Donnell Dotson MD ? 02/09/2014 ??3:13 PM Patient and mother coming today. Since he was last seen, the orthopedic surgeons and the rest of the team at [facility] have agreed that she no longer needs the intrathecal baclofen. She like to be tapered off the baclofen before the pump is basically no longer effective, 3 months from now. Looking at the [employer] website and calling the local [employer] baclofen pump veterans contact representative, we decided to decrease her pump by 10% this week. Reevaluate in one week. We can consider 10-20% decreases at a time. This is 20 mcg. The lowest effective dose that we can give with the pump is 50 mcg per day. We will then dilute the medication and then to switch her over to saline once she is decreased to 10 mcg per day. The pump was inquired. Currently receiving baclofen 1000 mcg per cc, 200 g per day simple continuous infusion. Estimated replacement index of 3 months. 37.1 mL's remaining. Low reservoir alarm at the current rate of August 05, 2014. The pump was decreased down to one and 75 mcg per day. Low reservoir alarm date of August 25, 2014. Followup next week. Counseling and coordination of care: 20 minutes out of total 25 face to face minutes for today's visit. Issues discussed: Various methods to taper off of baclofen were discussed. Procedure Note Donnell Dotson MD - 02/09/2014 2:59 PM EDT Patient and mother coming today. Since he was last seen, the orthopedicsurgeons and the rest of the team at [facility] haveagreed that she no longer needs the intrathecal baclofen. She like to betapered off the baclofen before the pump is basically no longer effective,3 months from now. Looking at the [employer] website and calling the local [employer] baclofenpump veterans contact representative, we decided to decrease her pump by 10% this week.Reevaluate in one week. We can consider 10-20% decreases at a time. Thisis 20 mcg. The lowest effective dose that we can give with the pump is 50mcg per day. We will then dilute the medication and then to switch herover to saline once she is decreased to 10 mcg per day. The pump was inquired. Currently receiving baclofen 1000 mcg per cc, 200 gper day simple continuous infusion. Estimated replacement index of 3months. 37.1 mL's remaining. Low reservoir alarm at the current rate ofApril 2014. The pump was decreased down to one and 75 mcg per day. Low reservoir alarmdate of August 25, 2014. Followup next week. Counseling and coordination of care: 20 minutes out of total 25 face toface minutes for today's visit. Issues discussed: Various methods to taperoff of baclofen were discussed. Donnell Dotson MD PROCEDURE/MINOR SURG ICAL ORDERABLES documented in this encounter Visit Diagnoses Diagnosis Traumatic brain injury, sequela Abnormal involuntary movements(781.0) Abnormal involuntary movements documented in this encounter Care Teams Family Service Center Director Relationship Specialty Start Date End Date Naina Lindsey MD [address] [place] [address] PCP - General 03/19/10 08/25/16 documented as of this encounter
--- OUTSIDE RECORDS SUMMARY | 2023-11-09 18:19 | XMS_ITS | Encounter Summary ---
Author Organization [facility] [place] [address] Care Team Providers Care Rn Endocrinology Name Role Phone Naina Lindsey MD Primary Care Provider [phone] Encounter Details Date Type Department Care Team (Late st Contact Info) Description 12/21/2013 1:30 PM EDT Ancillary Procedure [place] [phone] Chuckie Mayfield MD [facility] [place] [address] Social History Tobacco Use Types Packs/Day Years [...] EDT TH Visit (TeleHealth) [place] [address] Lilli Joy APRN [facility] [place] [address] 11/30/2023 12:50 PM EDT Appointment [place] [address] 12/03/2023 12:30 PM EDT Office Visit [place] [address] Hollie Ambriz MD [facility] [place] [address] documented as of this encounter Procedures Procedure [...] Mayfield MD IMG FILM LIBRARY ORD ERABLES [place], [place] documented in this encounter Visit Diagnoses Not on filedocumented in this encounter Care Teams Rn Endocrinology Relationship Specialty Start Date End Date Naina Lindsey MD [address] [place] [address] [place] [address] PCP - General 03/19/10 08/25/16 documented as of this encounter
--- OUTSIDE RECORDS SUMMARY | 2023-11-09 18:19 | XMS_ITS | Encounter Summary ---
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0); Chronic pain syndrome Pain [facility] Refill of Intrathecal Pump with Reprogramming Procedure Note Tana Cavazos [id number] Date of Refill: January 20, 2013 Primary Roto Gravure Press Operator: ASHKAN BRANTLEY APRN Appeals Writer: Dr. Dotson Reason for Reprogramming: Pump alarm date approaching Diagnosis: Spacticity, traumatic head injury Telemetry Pre-programming Reading: Drug Concentration Daily Dose Baclofen 1,000 mcg/ ml 195.1 mcg/ day Telemetry Post-programming Reading: Drug Concentration Daily Dose Brand (B) or Compound (C) Lot number Baclofen 1,000 mcg/ ml 195.1 mcg/ day Compound #[id number] Simple Continuous Rx # [id number] Exp. 02/05/13 Pump Capacity: 40 ml Computer Predicted Residual Volume in Pump (ml): 4.5 ml Measured Residual volume in Pump (ml): 5.8 ml Medication or Dose Changes: no Is dose change > 30%? n/a Is concentration or drug different? no Empty syringe concentration verified by maturity checker: yes If concentration or drug is different, has a bridge bolus been programmed? n/a Has any program been used other than simple continuous or bridge bolus and simple continuous? no Infusion Mode: simple continuous Has reprogramming affected refill date and if so, has this been accommodated for? yes New Pump Alarm Date: 07/31/13 PROCEDURE: Risks and expected side effects were reviewed with patient and her mother, and mother voiced no concerns. She reports that she does not think the pump rate should be changed at this time as Tana is doing very well. The printed consent form was signed and witnessed with QUINCY Harrison. A time-out was conducted just before the start of the procedure to verify the correct patient and procedure, procedure location, and all relevant critical information with QUINCY Harrison. Time out was performed including verification of. [...] instilled into the pump according to the system software developer's directions without difficulty. There was no evidence [...] will be arranged for refills as appropriate. ASHKAN BRANTLEY APRN documented in this encounter Plan of Treatment Upcoming Encounters Date Type Department Care Team (Late st Contact Info) Description 11/19/2023 2:30 PM EDT TH Visit (TeleHealth) Infectious [place] [address] Lilli Joy APRN [facility] [place] [address] 11/30/2023 12:50 PM EDT Appointment Rad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 01/20/2013 ??4:15 PM [facility] Refill of Intrathecal Pump with Reprogramming Procedure Note Tana Cavazos ? [id number] Date of Refill: January 20, 2013 Primary Roto Gravure Press Operator: ASHKAN BRANTLEY APRN Appeals Writer: Dr. Dotson Reason for Reprogramming: ??Pump alarm date approaching Diagnosis: ??Spacticity, traumatic head injury Telemetry Pre-programming Reading: Drug Concentration Daily Dose Baclofen 1,000 mcg/ ml 195.1 mcg/ day ? Telemetry Post-programming Reading: ?? Drug Concentration Daily Dose Brand (B) or Compound (C) Lot number Baclofen 1,000 mcg/ ml 195.1 mcg/ day Compound #[id number] Simple Continuous ?? Rx # [id number] Exp. 02/05/13 ? Pump Capacity: ??40 ml Computer Predicted Residual Volume in Pump (ml): ??4.5 ml Measured Residual volume in Pump (ml): 5.8 ml Medication or Dose Changes: ?no Is dose change > 30%?n/a Is concentration or drug different? ??no Empty syringe concentration verified by maturity checker: ?? yes If concentration or drug is different, has a bridge bolus been programmed? ??n/a Has any program been used other than simple continuous or bridge bolus and simple continuous? ?? no Infusion Mode: ?? simple continuous Has reprogramming affected refill date and if so, has this been accommodated for? yes New Pump Alarm Date: 07/31/13 PROCEDURE: Risks and expected side effects were reviewed with patient and her mother, and mother voiced no concerns. ??She reports that she does not think the pump rate should be changed at this time as Tana is doing very well. The printed consent form was signed and witnessed with QUINCY Harrison. ?? A time-out was conducted just before the start of the procedure to verify the correct patient and procedure, procedure location, and all relevant critical information with QUINCY Harrison. Time out was performed including verification of. ? Patient Name on RX: yes ?? Drug Name on RX:yes ?? Drug concentration on syringe containing pump refill medication: yes The pump was accessed via telemetry and the computer predicted residual volume was noted as per above. Then Chlorhexidine prep over the pump refill site was performed. ??Sterile drapes were applied as provided with the ??[employer] refill kit. A 22 gauge Persaud non-coring [...] instilled into the pump according to the system software developer's directions without difficulty. There was no evidence [...] will be arranged for refills as appropriate. ASHKAN BRANTLEY APRN Procedure Note Ashkan Brantley APRN - 01/20/2013 3:32 PM EDT Pain Management Center Refill of Intrathecal Pump with Reprogramming Procedure Note Tana Cavazos [id number] Date of Refill: January 20, 2013 Primary Roto Gravure Press Operator: ASHKAN BRANTLEY APRN Appeals Writer: Dr. Dotson Reason for Reprogramming: Pump alarm date approaching Diagnosis: Spacticity, traumatic head injury Telemetry Pre-programming Reading: Drug Concentration Daily Dose Baclofen 1,000 mcg/ ml 195.1 mcg/ day Telemetry Post-programming Reading: Drug Concentration Daily Dose Brand (B) or Compound (C) Lot number Baclofen 1,000 mcg/ ml 195.1 mcg/ day Compound #[id number] Simple Continuous Rx # [id number] Exp. 02/05/13 Pump Capacity: 40 ml Computer Predicted Residual Volume in Pump (ml): 4.5 ml Measured Residual volume in Pump (ml): 5.8 ml Medication or Dose Changes: no Is dose change > 30%? n/a Is concentration or drug different? no Empty syringe concentration verified by maturity checker: yes If concentration or drug is different, has a bridge bolus been programmed?n/a Has any program been used other than simple continuous or bridge bolus andsimple continuous? no Infusion Mode: simple continuous Has reprogramming affected refill date and if so, has this beenaccommodated for? yes New Pump Alarm Date: 07/31/13 PROCEDURE: Risks and expected side effects were reviewed with patient and her mother,and mother voiced no concerns. She reports that she does not think thepump rate should be changed at this time as Tana is doing very well. Theprinted consent form was signed and witnessed with QUINCY Harrison. A time-out was conducted just before the start of the procedure to verifythe correct patient and procedure, procedure location, and all relevantcritical information with QUINCY Harrison. Time out was performed including verification of. ?? Patient Name on RX: yes ?? Drug Name on RX:yes ?? Drug concentration on syringe containing pump refill medication: yes The pump was accessed via telemetry and the computer predicted residualvolume was noted as per above. Then Chlorhexidine prep over the pumprefill site was performed. Sterile drapes were applied as provided withthe [employer] refill kit. A 22 gauge Persaud non-coring [...] wasinstilled into the pump according to the system software developer's directions withoutdifficulty. There was no evidence of [...] procedure well [facility] Follow-up appointments will be arranged for refills asappropriate. 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 Intracranial injury of other and unspecified nature, without mention of open intracranial wound, unspecified state of consciousness Abnormal involuntary movements(781.0) Abnormal involuntary movements Chronic pain syndrome documented in this encounter Administered Medications Inactive Administered Medications - up to 3 most recent administrations Medication Order MAR Action Action Date Dose Rate Site pain clinic compounded medication 1 each 1 each, Intrathecal, ONCE, 1 dose, On Dianne 01/20/13 at 1600, Routine, Medication Name and Dose: see procedure note Given 01/20/2013 3:32 PM EDT 1 each documented in this encounter Care Teams Back Up Machine Operator Relationship Specialty Start Date End Date Naina Lindsey MD [address] [address] PCP - General 03/19/10 08/25/16 documented as of this encounter
--- OUTSIDE RECORDS SUMMARY | 2023-11-09 18:19 | XMS_ITS | Encounter Summary ---
Author Organization [place] [address] Care Team Providers Care Cokeman Name Role Phone Naina Lindsey MD Primary Care Provider [phone] Encounter Details Date Type Department Care Team (Latest Contact Info) Description 03/29/2014 4:15 PM EST Procedure [place] [id number] Donnell Dotson MD [facility] [place] [address] Traumatic brain injury, subsequent encounter; Abnormal involuntary movements(781.0) Discharge Disposition: Home Social History Tobacco Use [...] Sign Reading Time Taken Comments Blood Pressure 107/69 03/29/2014 4:37 PM EST Pulse 127 03/29/2014 4:37 PM EST Temperature - - Respiratory Rate - - Oxygen Saturation 100% 03/29/2014 4:37 PM EST Inhaled Oxygen Concentration - - Weight - - Height - - Body Mass Index - - documented in this encounter Procedure Notes * Donnell Dotson MD - 03/29/2014 4:56 PM ESTAssociated Order(s): INTRATHECAL PUMP REPROGRAMMING Pre-Procedure Diagnose(s): Abnormal involuntary movements(781.0) Progress Note Patient is being seen here today to reevaluate her baclofen spinal infusion. The patient has the diagnosis of traumatic brain injury with questionable need for the spinal infusion Mother states that the tapers going quite well. There is been maybe one or 2 episodes only of spasm. Other than that nothing of great concern. His been no itching or personality changes. Pump was inquired. Currently receiving a simple continuous infusion of baclofen at 85 mcg per day. This was decreased to 50 mcg per day. Low reservoir alarm of October 26, 2015. Assessment and plan Continue with weekly decreases. Next decrease I suggest should be 25 mcg per day. Because she has baclofen 1000 mcg per cc we will have to dilutes the baclofen. We'll also have to withdrawal baclofenfrom the internal and external tubing. I recommend that we lower the concentration of fat we can run the pump at the lowest dose before stopping the pump at 12 mcg per day. Perhaps a concentration of1-200 mcg per cc would be in order. Donnell Dotson MD Child Care Assistant of Anesthesiology [facility] documented in this encounter Plan of Treatment Upcoming Encounters Date Type Department Care Team (Late st Contact Info) Description 11/19/2023 2:30 PM EDT TH Visit (TeleHealth) Infectious Disease at [facility] [place] [address] Lilli Joy APRN [facility] [place] [id number] 11/30/2023 12:50 PM EDT Appointment Radiology at [facility] [place] [address] 12/03/2023 12:30 PM EDT Office Visit Infectious Disease at [facility] [place] [address] Hollie Ambriz MD [facility] [place] [id number] documented as of this encounter Procedures Procedure Name Priority Date/Time Associated Diagnosis Comments INTRATHECAL PUMP REPROGRAMMING Routine 03/30/2014 7:13 AM EST Abnormal involuntary movements(781.0) documented in this encounter Results * INTRATHECAL PUMP REPROGRAMMING (03/30/2014 7:13 AM EST) Narrative Donnell Dotson MD - 03/30/2014 7:13 AM EST Donnell Dotson MD ? 03/30/2014 ??7:13 AM Progress Note Patient is being seen here today to reevaluate her baclofen spinal infusion. The patient has the diagnosis of traumatic brain injury with questionable need for the spinal infusion Mother states that the tapers going quite well. There is been maybe one or 2 episodes only of spasm. Other than that nothing of great concern. His been no itching or personality changes. Pump was inquired. Currently receiving a simple continuous infusion of baclofen at 85 mcg per day. This was decreased to 50 mcg per day. Low reservoir alarm of October 26, 2015. Assessment and plan Continue with weekly decreases. Next decrease I suggest should be 25 mcg per day. Because she has baclofen 1000 mcg per cc we will have to dilutes the baclofen. We'll also have to withdrawal baclofen from the internal and external tubing. I recommend that we lower the concentration of fat we can run the pump at the lowest dose before stopping the pump at 12 mcg per day. Perhaps a concentration of 1-200 mcg per cc would be in order. Donnell Dotson MD Child Care Assistant of Anesthesiology [facility] Donnell Dotson MD PROCEDURE/MINOR SURG ICAL ORDERABLES documented in this encounter Visit Diagnoses Diagnosis Traumatic brain injury, subsequent encounter Abnormal involuntary movements(781.0) Abnormal involuntary movements documented in this encounter Care Teams Cokeman Relationship Specialty Start Date End Date Naina Lindsey MD [address] [place] [address] PCP - General 03/19/10 08/25/16 documented as of this encounter
--- OUTSIDE RECORDS SUMMARY | 2023-11-09 18:19 | XMS_ITS | Encounter Summary ---
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 [...] EDT TH Visit (TeleHealth) [place] [address] Lilli Joy APRN [facility] [place] [address] 11/30/2023 12:50 PM EDT [place]oint[place] [address] 12/03/2023 12:30 PM EDT Office [place] [phone] Hollie Ambriz MD [facility] [place] [address] documented as of this encounter Visit Diagnoses Diagnosis Acquired dysplasia of hip, bilateral Other acquired deformities of hip Scoliosis Scoliosis (and kyphoscoliosis), idiopathic 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
--- OUTSIDE RECORDS SUMMARY | 2023-11-09 18:20 | XMS_ITS | Encounter Summary ---
[place] [address] Care Team Providers Care International Manager Name Role Phone Naina Lindsey MD Primary Care Provider [phone] Encounter Details Date Type Department Care Team (Late st Contact Info) Description 12/17/2010 Telephone [place] [address] Mony Fierro, RN Social History Tobacco Use Types Packs/Day [...] Telephone Encounter - Mony Fierro RN - 01/15/2011 1:50 PM EDT Erroneous encounter documented in this encounter Plan of Treatment Upcoming Encounters Date Type Department Care Team (Late st Contact Info) Description 11/19/2023 2:30 PM EDT TH Visit (TeleHealth) [place] [address] Lilli Joy APRN [facility] [place] [address] 11/30/2023 12:50 PM EDT [place] [address] 12/03/2023 12:30 PM EDT Office [place] [address] Hollie Ambriz MD [facility] [place] [address] documented as of this encounter Visit Diagnoses Not on filedocumented in this encounter Care Teams International Manager Relationship Specialty Start Date End Date Naina Lindsey MD [address] [place] [address] [place] [address] PCP - General 03/19/10 08/25/16 documented as of this encounter
--- OUTSIDE RECORDS SUMMARY | 2023-11-09 18:20 | XMS_ITS | Encounter Summary ---
Author Organization [facility] Address [facility] [place] [address] Care Team Providers [facility] Worker Name Role Phone Naina Lindsey MD Primary Care Provider [phone] Encounter Details Date Type Department Care Team (Latest Contact Info) Description 08/15/2010 6:32 AM EDT - 08/19/2010 1:16 PM EDT Hospital Encounter [place] [id number] Yas Oliver MD [facility] [place] [address] DDH (developmental dysplasia of the hip); Other congenital deformity of hip (joint); Acquired dysplasia of hip, bilateral; DUMMY CODE, SEND TO [facility]; Lack of normal physiological development, unspecified; Scoliosis (and kyphoscoliosis), idiopathic Discharge Disposition: Home with VNA Social History Tobacco Use Types Packs/Day Years Used Date Smoking Tobacco: Never Sex and Gender Information Value Date Recorded Sex Assigned at Not on file Gender Identity Not on file Sexual Orientation Not on file documented as of this encounter Last Filed Vital Signs Vital Sign Reading Time Taken Comments Blood Pressure 85/46 08/18/2010 12:35 PM EDT Pulse 108 08/18/2010 12:35 PM EDT Temperature 37.2 ??C (99 ??F) 08/18/2010 12:35 PM EDT Respiratory Rate 20 08/18/2010 12:35 PM EDT Oxygen Saturation 98% 08/18/2010 12:35 PM EDT Inhaled Oxygen Concentration - - Weight 45.4 kg (100 lb) 08/15/2010 7:03 AM EDT Height - - Body Mass Index - - documented in this encounter Discharge Instructions * Patient Instructions* Juan Mondragon MD - 08/19/2010 11:21 AM EDT ORTHOPAEDIC SURGERY DISCHARGE INSTRUCTIONS Activity level: Limit activity while spica cast in place Diet: Usual; encourage intake of fluids Medications: Usual medications; pain medication and medications for spasm prescribed; stool softener as needed Shower/Bath: Keep cast clean and dry at all times; sponge bathing advised Cast Care: Keep clean and dry; diaper care as shown; protect with plastic as needed for sponge bathing Call your doctor for: Fever Severe nausea or vomiting Increasing pain not controlled by pain medications Drainage or bad smell from cast Swelling, change in color of lower extremities, cool toes, decreased circulation Contact Information: Your orthopaedic surgeon:Yas Oliver MD: If it is after 5:00PM on a weekday or a weekend and it is of an urgent nature please call [phone] and ask for the on-call orthopaedic resident. Your Primary Care Physician: NAINA LINDSEY MD [phone] documented in this encounter Medications at Time of Discharge Medication Sig Dispensed Refills Start Date End Date diaZEPam (VALIUM) 5 mg/5 mL solution Take 5 mLs by mouth every 6 hours as needed (Spasm) for 10 days. 100 mL 2 08/19/2010 08/29/2010 miconazole (MICOTIN) 2 % powder Apply topically 2 times daily for 10 days. 70 g 0 08/19/2010 08/29/2010 sennosides (SENOKOT) 8.8 mg/5 mL syrup Take 10-20 mLs by mouth 2 times daily as needed for 10 days. 240 mL 2 08/19/2010 08/29/2010 tiZANidine (ZANAFLEX) 2 mg tablet Take 1 tablet by mouth 3 times daily for 10 days. 30 tablet 1 08/19/2010 08/29/2010 acetaminophen (TYLENOL) 160 mg/5 mL liquid Take 15.6 mLs by mouth every 6 hours as needed for Fever for 10 days. Take 15.6 mls by mouth every 6 hours as needed for pain for 10 days 120 mL 1 08/19/2010 08/29/2010 OXYcodone (ROXICODONE) 5 mg immediate release tablet Take 1 tablet by mouth every 4 hours as needed for Pain. 40 tablet 0 08/19/2010 12/16/2011 BACLOFEN IT 1000mcg/ml, Intrathecal, Via intrathecal infusion 07/11/2010 11/07/2010 baclofen (LIORESAL) 10 mg tablet 10 MG = 1 Tablet(s), PO, QPM 07/11/2010 11/24/2016 ibuprofen (ADVIL;MOTRIN) 100 mg/5 mL suspension 300 mg, PO, Q6H prn 07/11/2010 docusate sodium (COLACE) 50 mg/5 mL liquid 75 MG/7.5 ML, PO, Q12H 07/11/201007/22 tolnaftate (TINACTIN) 1 % powder APPLY TOPICALLY TO AREA DIRECTED, Top, PRN 07/11/2010 02/28/2014 documented as of this encounter Progress Notes * Alexanrde Frost, OT - 08/19/2010 2:00 PM EDT Occupational Therapy Note Met with pt's mother this morning to review dressing technique and answer questions before being d/c later today. Discussed need for splint for R hand/wrist to prevent contracture and mom aware and agrees. Mom agreed that this could be done as an outpt when she comes back for ortho follow up appt. Left msg with Mony Fierro RN, in Dr. Oliver's office to facilitate getting outpt OT referral for R hand splint; awaiting for her to return call. Mom has been instructed if she is not contacted in the next few days re: referral, to call Dr. Oliver's office directly. No further OT needed at this timefor inpt status. Pt to be d/c home later today. Pager [phone] Alexandre Frost, OT Occupational Therapy * Lesly Tony RN - 08/19/2010 1:49 PM EDT Office of Care management/CRC O:Pt ready for transport home today and mom is in agreement. Pt to be transferred via ambulance today at 1445 via [facility]. CRC completed necessary paperwork including letter of medeical necessity fo r ambulance. CRC faxed discharge summary and PT notes to [facility] who will begin start of care tomorrow. A:homecare services in place. Ambulance arranged for 1445. P:Please page CRC for any further coordiantion needs.[email or web address] * Nathalie Jha DT - 08/19/2010 10:53 AM EDT Clinical Nutrition Note Name: Tana Shelton Age: 15 y.o. Sex; Female Date of : 1995 Consult Date: 08/19/2010 Reason for Intervention: diagnosis Problem List: No resolved problems to display. Active Hospital Problems Diagnoses ??? Acquired dysplasia of hip, bilateral Resolved Hospital Problems Diagnoses Date Resolved Active Non-Hospital Problems Diagnoses ??? 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 Past Surgical History Procedure Date ??? Back surgery scoliosis repair ??? Hip osteotomy bilateral ??? Reconstruc hip socket, resec fem head 08/15/2010 ??ACETABULOPLASTY (GIRDLESTONE), RESECTION FEMORAL HEAD, BILATERAL performed by YAS OLIVER [facility] MAIN OR ??? Apply of hip casts, two legs 08/15/2010 CAST APPLICATION, HIP SPICA, BOTH LEGS performed by YAS OLIVER at [facility] MAIN OR ??? Removal deep implant 08/15/2010 REMOVAL IMPLANT, DEEP, BRUNO performed by YAS OLIVER at [facility] MAIN OR ??? Osteotomy femur shaft/supracondy 08/15/2010 ??OSTEOTOMY, FEMUR SHAFT OR SUPRACONDYLAR W/O FIXATION performed by YAS OLIVER at [facility] MAIN OR Current Medications: Infusions: Scheduled medications: ??? famotidine 20 mg Oral BID ??? docusate sodium 100 mg Oral Daily ??? docusate sodium 100 mg Oral Daily ??? calcium carbonate 648 mg Oral TID ??? miconazole Topical BID ??? baclofen 10 mg Oral QAM ??? tiZANidine 2 mg Oral TID PRN Medications: OXYcodone, diaZEPam, diaZEPam, LORazepam, acetaminophen, ondansetron, diaZEPam, bisacodyl, sennosides Diet: regular, pediatric Appetite: good Height: Ht Readings from Last 1 Encounters: No data found for Ht , Weight: Wt Readings from Last 1 Encounters: 08/15/10 45.36 kg (100 lb) (6.87%) , BMI: There is no height on file to calculate BMI., Assessment:patient appears to well nourished Instruction: Patient's mother denies at this time Plan/Recommendations: [place] foods preferences within restrictions NATHALIE JHA DTR 08/19/2010 * Amanda Hassan - 08/19/2010 8:22 AM EDT Orthopaedic Surgery Inpatient Progress Note Subjective: Post-Operative Day: 4 Status Post Bilateral proximal femoral resections, right supracondylar osteotomy, and spica cast application. Systemic or Specific Complaints: One episode of vomiting, but BM and decreased abdominal discomfort- mother thinks may have eaten a little fast. No other new complaints. Objective: Temp: [98.2 ??F (36.8 ??C)-99.9 ??F (37.7 ??C)] Heart Rate: [95-128] Resp: [20-22] BP: (85-116)/(46-80) SpO2: [97 %-100 %] I/O last 3 completed shifts: In: 540 [P.O.:540] Out: 2280 [Urine:2280] Gen: awake, alert and appropriate, NAD Abd: S, decreased distension, NTTP Bilat LE: Spica cast in place, c/d/i with improved appearance of abdominal irritation Toes warm and well-perfused w/ cap refill <2 seconds Assessment: S/P bilateral proximal femoral resections, right supracondylar osteotomy, and spica cast application. Plan to observe this morning and consider discharge this afternoon if taking POs wtihout difficulty. Plan: -Continue with PT/OT and spica cast care teaching -Oropeza out -Continue with bowel regimen -Pain well controlled -Follow up as scheduled Amanda Hassan, PGY III Orthopaedic Surgery Resident Pager [phone] Pt was seen and examined. I agree with the findings and recommendations of Dr. Hassan' note. * HaLonwillie - 08/18/2010 10:35 AM EDT PT note- brief Met w/ pt. And her mom briefly this AM. Spoke w/ RN who updated that pt. Will be here thru tomorrowas all d/c plans not yet solidified (meds, transport). She updated about Levar current status. Tana was Resting comfortably in bed, watching Sponge Rocco on TV, appears to be feeling MUCH better than on Thursday when last I saw Tana. Had just been given Valium per mom so was slightly lethargic, but was able to say hi w/ prompting, seen to smile for PT. Noted the edema in left hand gone. RN had indicated and I learned from chart review, pt. Was successfully transferred bed >w/c yesterday w/ OT, RN and Mom assist and tolerated being in the chair x 1hr. She was safely and successfully ret'd back to bed by RN and mom. Mom advised that Tana will visit w/ her family today and will attend an Easter alliance party on the unit and as such will wait to get up later. Mom and RN feel comfortable w/ coordinating the transfer at that time. Mom advises that her is working on elevating Tana's hosp. Bed at home w/ blocks. Mom understands the use of pillows in appropriate positions for Tana when she is in chair. Mom had questions about duration of time in w/c chair at home, we discussed trying to resume a regular a schedule w/ Tana as possible, therefore progressing time up in the chair for meals and schoolwork/activities but balancing w/ rest time in bed. Mom asked about Tana ret. To school, vs. school Work being brought into the home. We talked about Adv. And disadv. Of going back to school too soon(mom worried about infection), whether this would be too taxing on Tana and whether she would feel left out of some of the activities that the other children were doing b/c of her immobilization. Mom will further d/w Dr. Oliver. Advised I would try to stop back later today, time permitting when Tana is in the W/C to further observe her posture in the chair. Mom appreciative and in agreement w/ that plan. Time w/ pt. 13 mins pt. Related 0 timed codes. * Yas Oliver MD - 08/18/2010 8:09 AM EDT Orthopaedic Surgery Inpatient Progress Note Subjective: Post-Operative Day: 3 Status Post Bilateral proximal femoral resections, right supracondylar osteotomy, and spica cast application. Systemic or Specific Complaints: psychiatric aide instructor came last night. Big breakfast this morning. No complaints. No BM to date. Mild cough. Objective: Temp: [97.9 ??F (36.6 ??C)-99.3 ??F (37.4 ??C)] Heart Rate: [90-121] Resp: [20-22] BP: (82-110)/(38-44) SpO2: [99 %-100 %] I/O last 3 completed shifts: In: 2508 [P.O.:960; I.V.:1242; Blood:296; IV Piggyback:10] Out: 3155 [Urine:3155] Gen: awake, alert and appropriate, NAD Abd: S, mildly distended, NTTP Bilat LE: Spica cast in place, c/d/i with improved appearance of abdominal irritation Toes warm and well-perfused w/ cap refill <2 seconds Assessment: S/P bilateral proximal femoral resections, right supracondylar osteotomy, and spica cast application. Plan: -Continue with PT/OT and spica cast care teaching -Oropeza out -Continue with bowel regimen -Pain well controlled and tolerating po--will start to transition to po analgesia today -Follow up as scheduled Amanda Hassan, PGY III Orthopaedic Surgery Resident Pager [phone] Pt was seen and examined. I agree with the findings and recommendations of Dr. Hassan' note. * Gomez Inocente, OT - 08/17/2010 4:17 PM EDT Occupational Therapy Progress Note Patient profile: Patient is a 15 [address] Yas Oliver MD, admitted on 08/15/2010 secondary to Acquired dysplasia of hip. Interval History: Patient increase in HgB and feeling better today. Precautions/Special Considerations: Precautions/Limitations: other (see comments) (NON WB either LE) Subjective: Patient's mom reports there will always be two people there for the transfer. Objective: Total time spent with patient: 45 minutes therapeutic activity and ADL training Total timed interventions: 45 minutes therapeutic activity and ADL training Mental Status/Behavior: Pt status: Patient tolerated transfer w/o complaint, however once in chair for about 10 minutes patient crying with ability to sooth. Vision & Perception: NT Pain: Some pain noises noted with rolling. Strength/ROM: Limited B LE due to spica cast. ADL???s: Discussed with patient's mother clothing for spica cast. Patient's mother rolled patient on the side to place diapers onto patient with assistance from caretakers (2 assist to change diaper). Issued sippy cup with straw and instructed on its use. Bed Mobility: 1. Rolling: maximal assist x1-2. Transfers: 2. Bed <-> Chair transfer: total assist of 2 using mechanical lift. Patient's mother took lead with care takers for rolling patient on her side to place tomasa pad under patient. 3. Bottom hooks of pads kris crossed. 4. Patient lifted from bed and took patient out of room for more room to place onto w/c. W/C with foam cushion, pillows under legs and behind patient's back placed. Discussed with mom placing a pillow between legs. Education: caregiver and family have been educated on Transfers, Assistive device/technique and ADLand verbalize and demonstrate understanding. Patient status, treatment, and mobility recommendations discussed with nursing. Discussed with mother need for splint on right hand. Patient's mother agreed and reported that she had discussed with Dr. James jewell while back about getting a splint. Discussed having outpatient make splint on Thursday or when she return to [facility] for a follow-up visit. Assessment: Patient has a very supportive mother in regards to her care. Patient's mother very good at problem solving and performing transfer with tomasa lift Patient may benefit from a splint for right hand to prevent contractures. Patient will benefit fromcontinuing OT. Status of Goals: Goals: To be achieved by 3-4 days . 1. Patient 's family will be independent with assisting with changing diapers one assist as needed.(requires two people) 2. Patient's family will be independent with LE dressing assistance. F/U Thursday 3. Patient will tolerate total lift to w/c. MET Plan: Equipment needs: No equipment necessary Patient's mother brought in reclining w/c from home. Turnedarm rest and patient able to fit comfortably in w/c. PT to f/u Thursday. We will f/u Thursday if still in house. Discharge Recommendations: Patient to be d/c soon with care givers and mom. Pager: [phone] INOCENTE DYER, 08/17/2010 Occupational Therapy Rehabilitation Department * Gilda Woods RN - 08/17/2010 1:05 PM EDT Office of Care Management (OCM) / Clinical Mandolin Repair Person (CRC) Weekend D/C Planning or Continuing Care Note CRC asked to follow-up w/discharge planning needs. CRC available to assist in transportation needs when medically stable for discharge. Steffany Mancini) EUNICE Woods Weekend CRC pager [phone] * Yas Oliver MD - 08/17/2010 10:36 AM EDT Orthopaedic Surgery Inpatient Progress Note Subjective: Post-Operative Day: 2 Status Post Bilateral proximal femoral resections, right supracondylar osteotomy, and spica cast application. Systemic or Specific Complaints: Pt appeared well this morning, no complaints or concerns per mother. No nausea/vomiting in last 12hrs. Hemoglobin resolving at 9.3. She is tolerating her po, taking fluids, and urinating with out difficulty. She has not had a post op bm but continues with bowl regimen. Objective: Temp: [99 ??F (37.2 ??C)-100.9 ??F (38.3 ??C)] Heart Rate: [121-143] Resp: [20-24] BP: (70-88)/(29-43) SpO2: [99 %-100 %] Gen: awake, alert and appropriate, NAD Abd: S, ND, NTTP Bilat LE: Spica cast in place, c/d/i with area of slight pressure and irritation on left abdomen - improved in appearance Toes warm and well-perfused w/ cap refill <2 seconds Data Review CBC: Lab Results Component Value Date WBC 6.6 08/17/2010 RBC 3.17* 08/17/2010 HGB 9.3* 08/17/2010 HCT 26.5* 08/17/2010 Assessment: S/P bilateral proximal femoral resections, right supracondylar osteotomy, and spica cast application. Plan: -Continue with PT/OT and spica cast care teaching -D/c oropeza -Continue with colace for bowel regimen -Pain well controlled and tolerating po--will start to transition to po analgesia today -Follow up as scheduled Note written in conjuction w/ MURTAZA Salas patient independently seen and examined- agree with plan. Amanda Hassan, PGY III Orthopaedic Surgery Resident Pager [phone] Addendum Pt was seen and examined. I agree with the findings and recommendations of Dr. Leon's note. * Lorna Padilla RN - 08/17/2010 6:28 AM EDT Pt slept well throughout the night. Neurovascular checks done on B/L LE q 4 hrs, pt with good csm bilaterally. Around 0530 pts PIV noted to be leaking, dsg taken down at this time, site assessed and IV flushed and deemed to still be patent and benign. Tylenol given this AM, pain seems to be well controlled. Pts mother gave her baby food bananas this AM and is hoping for diet to be advanced today. * Destiny Kumar, EUNICE - 08/16/2010 4:56 PM EDT Refusing po meds. Taking clears slowly. Advanced to applesauce and regular diet slowly. BP low-HO aware. Receiving 2 units of RBCs. Appears Fairly comfortable. Spica cast intact. Lesion left abdominal area near spica cast. Toes warm. Circulation good. Repositioned every 2 hours. Oropeza draining well, IV infusing well. * Amanda Camara MSW - 08/16/2010 2:22 PM EDT Office of Care Management - Social Work Service: Pediatrics Reason for Referral: Tana Shelton is a 15 y.o. female who was admitted to Pediatric Unit on 08/15/10 due to Acquired Dysplasia of Hip and Spica cast. Relevant Information: Tana Shelton is a 15 y.o. female who was admitted to pediatric unit due to acquired dysplasia of hip and spica cast. Tana is accompanied by her mother, Anderson. Tana has developmental delays and spasticity secondary to a head injury. She also experiences high levels of anx iety with loud noises. Mother reports that she and her have a total of 5 children includingTana. Three are currently at home and attend school. Mother reports that her is staying athome right now with the other three so she can be at the hospital. Otherwise mom reports that she has a sitter at home and all the services she needs in order to care for Tana. Mother reports that th ings are going well and she feels that Tana is being taken care of. Assessment: Mother is appropriately concerned about Tana's health but also has a good understanding of the larger picture and needs. She is coping well at this time. SW informed about meal vouchers and that gas voucher was requested. No other needs expressed at this time. Plan: SW will continue to follow and provide support as needed. ELIDIA Mendoza * Lesly Tony RN - 08/16/2010 1:52 PM EDT Office of Care Management(OCM)/Clinical Mandolin Repair Person(CRC)Initial Assessment O: Reviewed chart. Introduced self to parents/ caregiver and reviewed CRC role. CRC familiar with patient and family form previous admissions. Tana uses [facility] and mom has spoken with agency to discussneeds at discharge. CRC faxed referral to [facility] requested RN, TAXATION CONSULTANT and PT, [facility]. Tana will require an ambulance for transfer to home. Letter of medical necessity completed by Ortho team. CRC spoke with Aniket at [place] medicaid who comfirmed ambulance will be covered and to provide the letter directly to the ambulance company upon transport of patient to home. CRC will also provide Tana's mother with a copy of letter. PT/OT has seen patient and working with patient and matthew corral for postioning pillows etc. Admitted with:Procedure on 08/15/10 Bilateral proximal femoral resection, removal retained fixation,right distal femoral supracondylar osteotomy Home/community services prior to admission: Home Health Agency:[facility] DME:hospital bed, tomasa lift system, reclining wheelchair Pt receives PT services at school NAINA LINDSEY MD @PCPADD@ [phone] Insurance:[place] Medicaid Family supports:mother and family School/development issues:attends school Transportation @ d/c: ambulance. She exceeds height to be in her own vehicle laying flat. Social Work consult: none Anticipated needs for discharge:[facility] services to resume with increase in frequency. P: CRC to follow with Team and Family for coordination of disposition if any needs arise. Ortho team to notify weekend CRC if discharge will be Sat/Sun. This CRC completed Ambulance form, demographics and attached letter of medical necessity, envelope place in chart pocket outside patient room, ready for discharge. Pt will need a foam form fo r positioning, PT/OT are working on that fo rpatient. * Bernarda Mcguire - 08/16/2010 12:46 PM EDT Child Life Note 08/16/2010 Tana Freddy Dirk 1995 S: CCLS involved to provide support to pt and family surrounding medical experiences and hospitalization. CCLS to provide therapeutic interventions to promote coping and decrease anticipatory anxiety. O: CCLS introduced role and services, and provided appropriate resources. CCLS assessed pt's coping, and discussed importance of normalization during admission. CCLS explored social and emotional supports. Mom is at the bedside and very involved in pt's care. Pt does have increased anxiety with loud noises. A: CCLS explained normal coping expectations. Pt continues to be comfortable with all members of interdisciplinary/medical team. Medical play sessions and therapuetic interventions have assisted pt in feelings of control and mastery over hospital environment. P: Provide continuing support and interventions to promote coping. Opportunities for normalization and socialization. John Gleason, CCLS, MACHINE TOOL TECHNICIAN INSTRUCTOR Pager [phone] * Inocente Dyer, OT - 08/16/2010 11:23 AM EDT Occupational Therapy Evaluation Patient profile: Patient is a 15 y.o. female of Yas Earl MD, admitted on 08/15/2010. Forfemoral Neck Osteotomy ([place]). 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 Patient has R hemiparesis. Patient has h/o seizure and global DD. Past Surgical History Procedure Date ??? Back surgery scoliosis repair ??? Hip osteotomy bilateral ??? Reconstruc hip socket, resec fem head 08/15/2010 ??ACETABULOPLASTY (GIRDLESTONE), RESECTION FEMORAL HEAD, BILATERAL performed by YAS OLIVER [facility] MAIN OR ??? Apply of hip casts, two legs 08/15/2010 CAST APPLICATION, HIP SPICA, BOTH LEGS performed by YAS OLIVER at [facility] MAIN OR ??? Removal deep implant 08/15/2010 REMOVAL IMPLANT, DEEP, BRUNO performed by YAS OLIVER at [facility] MAIN OR ??? Osteotomy femur shaft/supracondy 08/15/2010 ??OSTEOTOMY, FEMUR SHAFT OR SUPRACONDYLAR W/O FIXATION performed by YAS OLIVER at [facility] MAIN OR Social History: Patient lives with family And has four siblings. Prior to admit patient needed assistance for ADLs. Patient able to feed herself finger food and usefork. Patient using sippy cup. Patient does have a splint for right hand. Patient was a total lift to chair. Patient has home health, livestock yard attendant, school therapy and assistance. She enjoys Sponge Rocco and pink/purple things. Tana has a tilt in space and manual reclining w/c and a ceiling lift in her bedroom at home. Family has w/c van. Appears that Gal is well outfitted with equipment and services, and has a very attentive family. Precaution special Considerations: HgB is 6.9 this AM, Patient vomiting this AM. Patient in spica cast with about 30 degrees hip flexion and h/o spinal fusion. Subjective: Patient smiling when sponge placed over teeth. Objective: Total time spent with patient: 45 minutes eval Total timed interventions: 0 minutes Mental Status/Behavior: Pt status: Patient responding to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 Contact Information: Primary Care Provider: NAINA LINDSEY MD [phone] Hospital Attending: Yas Oliver MD Department of Orthopaedic Surgery Pediatrics: [phone] For questions regarding this document or issues relating to this hospitalization on the Medical Service, please contact your inpatient physician through the [facility] Biology Faculty Member . Issues afterhours and on weekends will be handled by the Hospitalist staff on-call. Signed: JUAN MONDRAGON 08/19/2010 * Med Student Progress Note - Fernanda Nolan Gemma - 08/17/2010 9:59 AM EDT Orthopaedic Surgery Inpatient Progress Note Subjective: Post-Operative Day: 1 Status Post Bilateral proximal femoral resections, right supracondylar osteotomy, and spica cast application. Systemic or Specific Complaints: Pt appeared well this morning, no complaints or concerns per mother. No nausea/vomiting in last 12hrs. Hemoglobin resolving at 9.3. She is tolerating her po, taking fluids, and urinating with out difficulty. She has not had a post op bm but continues with bowl regimen. Objective: Temp: [99 ??F (37.2 ??C)-100.9 ??F (38.3 ??C)] Heart Rate: [121-143] Resp: [20-24] BP: (70-88)/(29-43) SpO2: [99 %-100 %] Gen: awake, alert and appropriate, NAD Abd: S, ND, NTTP Bilat LE: Spica cast in place, c/d/i with area of slight pressure and irritation on left abdomen Toes warm and well-perfused w/ cap refill <2 seconds Data Review CBC: Lab Results Component Value Date WBC 6.6 08/17/2010 RBC 3.17* 08/17/2010 HGB 9.3* 08/17/2010 HCT 26.5* 08/17/2010 Assessment: S/P bilateral proximal femoral resections, right supracondylar osteotomy, and spica cast application. Plan: -Continue with PT/OT and spica cast care teaching -D/c oropeza -Continue with colase for bowl regimen -Pain well controlled and tolerating po--will start to transition to po analgesia today -Follow up as scheduled * Plan of Care - Mony Fierro RN - 08/16/2010 10:39 AM EDT Letter of Medical Necessity RX: Ambulance transfer home upon discharge from [facility] as well as to and from follow up appointments while in a spica cast DX:Procedure on 08/15/10 Bilateral proximal femoral resection, removal retained fixation, right distal femoral supracondylar osteotomy. Indications: Tana Shelton is a 15 y.o. 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 In 04/04 Purpose of Appliance:Allow safe transport home and to and from follow up appointments Duration of Necessity:Cast on for the next 6-8 weeks and will require ambulance transfer home upon discharge as well as to and from follow up visits at [facility] until cast is removed Medical Necessity: Pre-operative Diagnosis: Bilateral painful hips Procedure on 08/15/10 Bilateral proximal femoral resection, removal retained fixation, right distal femoral supracondylar osteotomy. Indications: Tana Shelton is a 15 y.o. 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 In 04/04 Patient s/p spinal fusion now in a spica cast and unable to sit upright in a car to travel home secondary to positioning and pain. To large to lay supine in the family vehicle/ Physician: Yas Oliver M.D. UPIN # [id number], Medicaid # ORE [id number] [facility] NPI # [id number] [place] [id number] * Op Note - Yas Oliver MD - 08/16/2010 9:33 AM EDT Surgeon: Yas Oliver MD Car Inspection And Repair Manager: Amanda Hassan Pre-operative Diagnosis: Bilateral painful hips Post-operative Diagnosis: Same Procedure: Bilateral proximal femoral resection, removal retained fixation, right distal femoral supracondylar osteotomy. Indications: Tana Shelton is a 15 y.o. 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 In 04/04, she underwent bilateral proximal femoral valgus osteotomies for treatment ofpainful hip subluxation. While hips have had improved position, she remains painful with hip movement left greater than right. Knee flexion contractures have recurred. Lengthy discussion was undertaken with mother regarding treatment options and recommendations. Decision to proceed with hardware removal, proximal femoral resection arthroplasty and possible hamstring lengthenings. Risks and benefits were reviewed. Risks include but are not limited to: Infection, blood loss, nerve or blood vessel injury, arthritis,skin healing issues or pressure sores within cast, residual pain, possible need for additional procedures. Mother understands and wishes to proceed. Procedure: Tana Shelton was taken into OR and placed onto OR table. GETA anesthesia was initiated.IV antibiotics were administered. Bilateral lower extremities were prepped and draped in sterile fashion. Attention was turned initially to right hip. 12 cm incision was made over lateral aspect of proximal thigh, overlying previous incision site. Sharp dissection through subcutaneous tissues was performed. Iliotibial band was divided in line with femoral shaft. Vastus lateralis was divided in line with its fibers. Proximal lateral femur and retained fixation were exposed. Each of the screws and plate were then removed. There was noted to be a significant amount of hypertrophic bone which hadgrown over top of the plate and screws. This was removed with utilization of osteotome, and rongeurs. C-arm guidance was then used to identify location 1 cm below lesser trochanter. Transverse osteotomy was made with oscillating saw. The proximal femur was then skeletonized using bovie and Mon elevator. It was resected fully. Once this was done it became apparent that the knee flexion contracture remained significant. This caused significant posterior direction of the proximal extent of the femor al shaft. Based on palpation of the hamstring musculature, I did not feel that lengthening the hamstrings would meaningfully improve the situation. I called out to the mother and discussed with her moving forward with a distal femoral osteotomy. She consented verbally and this was witnessed by Mary Connors RN. A second incision 3 cm in length was made over the lateral aspect of the distal femur in the regionof the supracondylar femur. Sharp dissection down to subcutaneous tissues was performed. Iliotibialband was divided. Subperiosteal dissection was performed. Hohmann retractors were placed anteriorlyand posteriorly around the distal femur and saw was utilized to make a transverse osteotomy. Once this was done we were better able to position upper portion of the leg into extension with residual knee flexion of approximately 30??. Wound was then copiously irrigated normal saline. The tissue of the joint capsule was then reapproximated in a purse string closure with 0 - vicryl suture. The proximal end of the residual femoral shaft was smoothed with a rasp and bone wax was spread over the end. The muscle of the quadriceps and lateral hamstring were approximated over the femoral shaft using 0-vicryl. Wound was then copiously irrigated with normal saline. Bovie cautery was used to gain hemostasis. Wound was then closed in layers with running 0-vicryl for vastus lateralis. Interupted figure of 8 0-vicryl for IT band. Subcutaneous tissues were re-approximated with 3-0 vicryl and skin was closed with 4-0 monocryl. Identical procedure was perform on left side with the exception of distal femoral osteotomy was notfelt to be warranted. Wound were dressed with alcohol, steri-strips, 4x4's , sterile webril and bilateral long leg spica cast was applied. Care was taken to ensure adequate padding. Patient was awakened and transferred to recovery room in stable condition. There were no apparent complications. EBL :450 cc. Post-operative plan: We will maintain spica cast for 6 weeks or so. Anticipate that we might require some further casting for her right distal femur support. * OR Attestation - Yas Oliver MD - 08/15/2010 1:42 PM EDT I was present and I participated in the entire procedure. * Miscellaneous - Provider, Scanning - 08/15/2010 7:36 AM EDT documented in this encounter Plan of Treatment Upcoming Encounters Date Type Department Care Team (Late st Contact Info) Description 11/19/2023 2:30 PM EDT TH Visit (TeleHealth) [place] [phone] Lilli Joy APRN [facility] [place] [address] 11/30/2023 12:50 PM EDT [place] [phone] 12/03/2023 12:30 PM EDT Office [place] [phone] Hollie Ambriz MD [facility] [place] [address] Pending Results Name Type Priority Associated Diagnoses Date /Time XR Fluoro OR c-arm storage only Imaging Routine 08/15/2010 2:22 PM EDT Scheduled Orders Name Type Priority Associated Diagnoses Orde r Schedule XR Fluoro OR c-arm storage only Imaging Routine Once PRN (for Ra diant use) for 1 Occurrences starting 08/15/2010 until 08/15/2010 documented as of this encounter Procedures Procedure Name Priority Date/Time Associated Diagnosis Comments LAB SCAN 08/20/2010 2:48 PM EDT GAME PROGRAMER SCAN 08/20/2010 2:48 PM EDT DIFFERENTIAL, AUTOMATED Routine 08/18/2010 11:47 AM EDT CBC (WITH DIFF) Routine 08/18/2010 11:47 AM EDT DIFFERENTIAL, AUTOMATED Routine 08/17/2010 5:35 AM EDT CBC (WITH DIFF) Routine 08/17/2010 5:35 AM EDT BASIC METABOLIC PANEL (NON-FASTING) Routine 08/17/2010 5:35 AM EDT XR ABDOMEN 1 VIEW Routine 08/16/2010 1:3 8 PM EDT DIFFERENTIAL, AUTOMATED Routine 08/16/2010 8:34 AM EDT CBC (WITH DIFF) Routine 08/16/2010 8:34 AM EDT SCAN, PERIPHERAL BLOOD Routine 6:00 AM EDT DIFFERENTIAL, AUTOMATED Routine 08/16/2010 6:00 AM EDT CBC (WITH DIFF) Routine 08/16/2010 6:00 AM EDT BASIC METABOLIC PANEL (NON-FASTING) Routine 08/16/2010 6:00 AM EDT DIFFERENTIAL, AUTOMATED STAT 08/15/2010 2:18 PM EDT CBC (WITH DIFF) STAT 08/15/2010 2:18 PM EDT SURGICAL PATHOLOGY REPORT Routine 08/15/2010 2:16 PM EDT SURGICAL PATHOLOGY REPORT Routine 08/15/2010 2:16 PM EDT SCAN, PERIPHERAL BLOOD STAT 1:20 PM EDT DIFFERENTIAL, AUTOMATED STAT 08/15/2010 1:20 PM EDT CBC (WITH DIFF) STAT 08/15/2010 1:20 PM EDT ABO/RH TYPING STAT 08/15/2010 9:30 AM EDT ANTIBODY SCREEN STAT 08/15/2010 9:30 AM EDT TYPE AND SCREEN ([facility]/CGP/ROSAS) STAT 08/15/2010 9:29 AM EDT DIFFERENTIAL, AUTOMATED STAT 08/15/2010 8:50 AM EDT CBC (WITH DIFF) STAT 08/15/2010 8:50 AM EDT @OSTEOTOMY, FEMUR SHAFT OR SUPRACONDYLAR W/O FIXATION (WRVU 11.6) 08/15/2010 7:49 AM EDT CP BRUNO DDH REMOVAL IMPLANT, DEEP, RBUNO (WRVU 5.96) 08/15/2010 7:49 AM EDT CP BRUNO DDH CAST APPLICATION, HIP SPICA, BOTH LEGS (WRVU 2.32) 08/15/2010 7:49 AM EDT CP BRUNO DDH @ACETABULOPLASTY (GIRDLESTONE), RESECTION FEMORAL HEAD, BILATERAL (WRVU 16.09) 08/15/2010 7:49 AM EDT CP BRUNO DDH documented in this encounter Results * SCAN DOC: LAB (08/20/2010 2:48 PM EDT) Narrative 08/20/2010 2:48 PM EDT Procedure Note Provider, Scanning - 08/20/2010 2:48 PM EDT Scanning Provider MEDIA MGR SCAN EXT O RDR/RSLT * SCAN DOC: GAME PROGRAMER (08/20/2010 2:48 PM EDT) Anatomical Region Laterality Modality Other Narrative 08/22/2010 12:49 PM EDT Procedure Note Provider, Scanning - 08/20/2010 2:48 PM EDT Scanning Provider MEDIA MGR SCAN EXT O RDR/RSLT * REFLEX LAB-A-DIFF (08/18/2010 11:47 AM EDT) Neutrophils % 54.9 37.0 - 77.0 % CERNER MILLENNIUM Neutr Abs (ANC) 3.66 1.50 - 8.00 x10(3)/mcL CERNER MILLENNIUM Lymphocytes % 32.4 20.0 - 50.0 % CERNER MILLENNIUM Lymphocytes Abs 2.2 1.2 - 5.2 x10(3)/mcL CERNER MILLENNIUM Monocytes % 8.4 2.0 - 12.0 % CERNER MILLENNIUM Monocyte Abs 0.6 0.2 - 1.0 x10(3)/mcL CERNER MILLENNIUM Eosinophils % 3.2 0.0 - 7.0 % CERNER MILLENNIUM Eosinophils Abs 0.2 0.0 - 0.5 x10(3)/mcL CERNER MILLENNIUM Basophils % 0.5 0.0 - 2.0 % CERNER MILLENNIUM Basophils Abs 0.0 0.0 - 0.2 x10(3)/mcL CERNER MILLENNIUM Immature Gran % 0.60 0.00 - 0.66 % CERNER MILLENNIUM Comment: Immature granulocytes(IG's)percentage and absolute count will include metamyelocytes, myelocytes, and promyelocytes. Blood smears from CBCs yielding IG's will be scanned manually for concordance. If this scan disagrees with the automated IG or if promyelocytes are noted, a manual differential will be performed. Debora Gran Abs 0.04 0.00 - 0.05 x10(3)/mcL CERNER MILLENNIUM Blood specimen (specimen) 08/18/2010 11:47 AM EDT 08/18/2010 11:53 AM EDT Yas Oliver MD HEMATOLOGY ORDERABLE S [facility] * (ABNORMAL) CBC (with Diff) (08/18/2010 11:47 AM EDT) WBC 6.7 4.5 - 13.0 x10(3)/mcL CERNER MILLENNIUM RBC 3.51(L) 4.10 - 5.10 x10(6)/mcL CERNER MILLENNIUM Hemoglobin 10.2(L) 12.0 - 16.0 gm/dL CERNER MILLENNIUM Hematocrit 30.1(L) 36.0 - 46.0 % CERNER MILLENNIUM MCV 85.8 76.0 - 98.0 fL CERNER MILLENNIUM MCH 29.1 25.0 - 35.0 pg CERNER MILLENNIUM MCHC 33.9 32.0 - 36.5 gm/dL CERNER MILLENNIUM Platelets 251 145 - 370 x10(3)/mcL CERNER MILLENNIUM RDWSD 45.1 35.0 - 46.0 fL CERNER MILLENNIUM RDWCV 14.6(H) 10.9 - 14.4 % CERNER MILLENNIUM MPV 10.9 9.0 - 12.0 fL CERNER MILLENNIUM Blood specimen (specimen) 08/18/2010 11:47 AM EDT 08/18/2010 11:53 AM EDT Yas Oliver MD HEMATOLOGY ORDERABLE S [facility] * (ABNORMAL) REFLEX LAB-A-DIFF (08/17/2010 5:35 AM EDT) Neutrophils % 53.5 37.0 - 77.0 % CERNER MILLENNIUM Neutr Abs (ANC) 3.53 1.50 - 8.00 x10(3)/mc L CERNER MILLENNIUM Lymphocytes % 31.1 20.0 - 50.0 % CERNER MILLENNIUM Lymphocytes Abs 2.1 1.2 - 5.2 x10(3)/mc L CERNER MILLENNIUM Monocytes % 14.1(H) 2.0 - 12.0 % CERNER MILLENNIUM Monocyte Abs 0.9 0.2 - 1.0 x10(3)/mc L CERNER MILLENNIUM Eosinophils % 0.2 0.0 - 7.0 % CERNER MILLENNIUM Eosinophils Abs 0.0 0.0 - 0.5 x10(3)/mc L CERNER MILLENNIUM Basophils % 0.5 0.0 - 2.0 % CERNER MILLENNIUM Basophils Abs 0.0 0.0 - 0.2 x10(3)/mc L CERNER MILLENNIUM Immature Gran % 0.60 0.00 - 0.66 % CERNER MILLENNIUM Comment: Immature granulocytes(IG's)percentage and absolute count will include metamyelocytes, myelocytes, and promyelocytes. Blood smears from CBCs yielding IG's will be scanned manually for concordance. If this scan disagrees with the automated IG or if promyelocytes are noted, a manual differential will be performed. Debora Gran Abs 0.04 0.00 - 0.05 x10(3)/mc L CERNER MILLENNIUM Blood specimen (specimen) 08/17/2010 5:35 AM EDT 08/17/2010 5:46 AM EDT Yas Oliver MD HEMATOLOGY ORDERABLE S [facility] * (ABNORMAL) Basic Metabolic Panel (non-fasting) (08/17/2010 5:35 AM EDT) Glucose Lvl 91 60 - 199 mg/dL CERNER MILLENNIUM Comment:Diabetes: >=200 mg/d L plus symptoms BUN 3(L) 10 - 20 mg/dL CERNER MILLENNIUM Creatinine <0.20(L) 0.20 - 0.70 mg/dL CERNER MILLENNIUM Comment: Results rechecked C. RAY Sodium 141 135 - 145 mmol/L CERNER MILLENNIUM Potassium 3.3(L) 3.5 - 5.0 mmol/L CERNER MILLENNIUM Comment: Please note: ??Patients with WBC >100,000 may have falsely elevated Potassium levels. ??For accurate Potassium quantification in these patients send serum separator tube (gold top) for subsequent determinations. ??Contact the Clinical Chemistry Laboratory if there are any questions. Chloride 113(H) 98 - 107 mmol/L CERNER MILLENNIUM CO2 23 22 - 31 mmol/L CERNER MILLENNIUM Anion Gap 5 5 - 15 mmol/L CERNER MILLENNIUM Calcium 7.2(L) 8.5 - 10.5 mg/dL CERNER MILLENNIUM Estimated GFR Not Calculated >=60 CERNER MILLENNIUM Comment: The National Kidney Disease Education Program (NKDEP) has recommended all laboratories report estimated GFR (eGFR) along with plasma creatinine measurements to assist you with recognition of early kidney disease. Caveats: ??Plasma creatinine should be at steady-state (unchanged within the past week). For patients multiply eGFR by 1.2.MDRD equation has not been validated for pediatric patients and is only valid for patients with age >= 18 years. At present, NKDEP does NOT recommend using the MDRD equation for drug dosing purposes and pharmacists should continue to use their current dosing methods. In addition, numerical eGFR values greater than 60 ml/min/1.73 square meters should be treated as > 60, and not an exact number due to greater inaccuracies at these higher values. Per NKDEP, they classify normal renal function as any GFR >60ml/min/1.73 square meters; chronic kidney disease when GFR <60, and renal failure when GFR <15. ??This calculation may not be valid for patients with atypical muscle mass (very lean or obese), acute renal failure, and in patients with diabetic kidney disease. References: http://nkdep.nih.gov/resources/NKDEP_Suggestn4Labs_0606_508.pdf http://www.kidney.org/professionals/kls/pdf/faq_gfr.pdf Blood specimen (specimen) 08/17/2010 5:35 AM EDT 08/17/2010 5:46 AM EDT Yas Oliver MD CHEMISTRY ORDERABLES [facility] * (ABNORMAL) CBC (with Diff) (08/17/2010 5:35 AM EDT) WBC 6.6 4.5 - 13.0 x10(3)/mcL CERNER MILLENNIUM RBC 3.17(L) 4.10 - 5.10 x10(6)/mcL CERNER MILLENNIUM Hemoglobin 9.3(L) 12.0 - 16.0 gm/dL CERNER MILLENNIUM Hematocrit 26.5(L) 36.0 - 46.0 % CERNER MILLENNIUM MCV 83.6 76.0 - 98.0 fL CERNER MILLENNIUM MCH 29.3 25.0 - 35.0 pg CERNER MILLENNIUM MCHC 35.1 32.0 - 36.5 gm/dL CERNER MILLENNIUM Platelets 190 145 - 370 x10(3)/mcL CERNER MILLENNIUM RDWSD 44.8 35.0 - 46.0 fL CERNER MILLENNIUM RDWCV 14.7(H) 10.9 - 14.4 % CERNER MILLENNIUM MPV 11.0 9.0 - 12.0 fL CERNER MILLENNIUM Blood specimen (specimen) 08/17/2010 5:35 AM EDT 08/17/2010 5:46 AM EDT Yas Oliver MD HEMATOLOGY ORDERABLE S [facility] * XR abdomen 1 view (08/16/2010 1:38 PM EDT) Anatomical Region Laterality Modality Abdomen N/A Radiographic Becca ging 08/16/2010 1:38 PM EDT Narrative 08/17/2010 10:43 PM EDT SINGLE PORTABLE SUPINE VIEW OF THE ABDOMEN: INDICATION: ??Postoperative vomiting. COMPARISON: ??06/12/10. FINDINGS: ??Markedly limited abdominal film does demonstrate multiple air-filled loops of small bowel that are not abnormally dilated. ?? Film and interpretation reviewed by the attending Procedure Note Keith Saleh MD - 08/17/2010 SINGLE PORTABLE SUPINE VIEW OF THE ABDOMEN: INDICATION: Postoperative vomiting. COMPARISON: 06/12/10. FINDINGS: Markedly limited abdominal film does demonstrate multipleair-filled loops of small bowel that are not abnormally dilated. Film and interpretation reviewed by the attending Yas Oliver MD IMG DX ORDERABLES * (ABNORMAL) REFLEX LAB-A-DIFF (08/16/2010 8:34 AM EDT) Neutrophils % 53.0 37.0 - 77.0 % CERNER MILLENNIUM Neutr Abs (ANC) 3.37 1.50 - 8.00 x10(3)/mc L CERNER MILLENNIUM Lymphocytes % 30.8 20.0 - 50.0 % CERNER MILLENNIUM Lymphocytes Abs 2.0 1.2 - 5.2 x10(3)/mc L CERNER MILLENNIUM Monocytes % 15.6(H) 2.0 - 12.0 % CERNER MILLENNIUM Monocyte Abs 1.0 0.2 - 1.0 x10(3)/mc L CERNER MILLENNIUM Eosinophils % 0.2 0.0 - 7.0 % CERNER MILLENNIUM Eosinophils Abs 0.0 0.0 - 0.5 x10(3)/mc L CERNER MILLENNIUM Basophils % 0.2 0.0 - 2.0 % CERNER MILLENNIUM Basophils Abs 0.0 0.0 - 0.2 x10(3)/mc L CERNER MILLENNIUM Immature Gran % 0.20 0.00 - 0.66 % CERNER MILLENNIUM Comment: Immature granulocytes(IG's)percentage and absolute count will include metamyelocytes, myelocytes, and promyelocytes. Blood smears from CBCs yielding IG's will be scanned manually for concordance. If this scan disagrees with the automated IG or if promyelocytes are noted, a manual differential will be performed. Debora Gran Abs 0.01 0.00 - 0.05 x10(3)/mc L CERNER MILLENNIUM Blood specimen (specimen) 08/16/2010 8:34 AM EDT 08/16/2010 8:34 AM EDT Yas Oliver MD HEMATOLOGY ORDERABLE S [facility] * (ABNORMAL) CBC (with Diff) (08/16/2010 8:34 AM EDT) WBC 6.3 4.5 - 13.0 x10(3)/mcL CERNER MILLENNIUM RBC 2.47(L) 4.10 - 5.10 x10(6)/mcL CERNER MILLENNIUM Hemoglobin 6.9(L) 12.0 - 16.0 gm/dL CERNER MILLENNIUM Hematocrit 20.8(L) 36.0 - 46.0 % CERNER MILLENNIUM MCV 84.2 76.0 - 98.0 fL CERNER MILLENNIUM MCH 27.9 25.0 - 35.0 pg CERNER MILLENNIUM MCHC 33.2 32.0 - 36.5 gm/dL CERNER MILLENNIUM Platelets 268 145 - 370 x10(3)/mcL CERNER MILLENNIUM RDWSD 43.5 35.0 - 46.0 fL CERNER MILLENNIUM RDWCV 14.1 10.9 - 14.4 % CERNER MILLENNIUM MPV 10.7 9.0 - 12.0 fL CERNER MILLENNIUM Blood specimen (specimen) 08/16/2010 8:34 AM EDT 08/16/2010 8:34 AM EDT Yas Oliver MD HEMATOLOGY ORDERABLE S [facility] * (ABNORMAL) REFLEX LAB-A-DIFF (08/16/2010 6:00 AM EDT) Neutrophils % 55.8 37.0 - 77.0 % CERNER MILLENNIUM Neutr Abs (ANC) 3.51 1.50 - 8.00 x10(3)/mc L CERNER MILLENNIUM Lymphocytes % 27.2 20.0 - 50.0 % CERNER MILLENNIUM Lymphocytes Abs 1.7 1.2 - 5.2 x10(3)/mc L CERNER MILLENNIUM Monocytes % 16.6(H) 2.0 - 12.0 % CERNER MILLENNIUM Monocyte Abs 1.0 0.2 - 1.0 x10(3)/mc L CERNER MILLENNIUM Eosinophils % 0.0 0.0 - 7.0 % CERNER MILLENNIUM Eosinophils Abs 0.0 0.0 - 0.5 x10(3)/mc L CERNER MILLENNIUM Basophils % 0.2 0.0 - 2.0 % CERNER MILLENNIUM Basophils Abs 0.0 0.0 - 0.2 x10(3)/mc L CERNER MILLENNIUM Immature Gran % 0.20 0.00 - 0.66 % CERNER MILLENNIUM Comment: Immature granulocytes(IG's)percentage and absolute count will include metamyelocytes, myelocytes, and promyelocytes. Blood smears from CBCs yielding IG's will be scanned manually for concordance. If this scan disagrees with the automated IG or if promyelocytes are noted, a manual differential will be performed. Debora Gran Abs 0.01 0.00 - 0.05 x10(3)/mc L CERNER MILLENNIUM Blood specimen (specimen) 08/16/2010 6:00 AM EDT 08/16/2010 6:20 AM EDT Yas Oliver MD HEMATOLOGY ORDERABLE S [facility]ILL[facility] * REFLEX LAB-SCAN, PERIPHERAL BLOOD (08/16/2010 6:00 AM EDT) Plat Estimate Normal CERNER MILLENNIUM RBC Morphology Normal CERNE R MILLENNIUM Blood specimen (specimen) 08/16/2010 6:00 AM EDT 08/16/2010 6:20 AM EDT Yas Oliver MD HEMATOLOGY ORDERABLE S [facility] * (ABNORMAL) Basic Metabolic Panel (non-fasting) (08/16/2010 6:00 AM EDT) Glucose Lvl 116 60 - 199 mg/dL CERNER MILLENNIUM Comment:Diabetes: >=200 mg/d L plus symptoms BUN 7(L) 10 - 20 mg/dL CERNER MILLENNIUM Creatinine 0.29 0.20 - 0.70 mg/dL CERNER MILLENNIUM Sodium 138 135 - 145 mmol/L CERNER [...] - 31 mmol/L CERNER MILLENNIUM Anion Gap 7 5 - 15 mmol/L CERNER MILLENNIUM Calcium 6.9(Criti dean) 8.5 - 10.5 mg/dL CERNER MILLENNIUM Comment: called by/read back by (full name)/date-time ??FEROZ Young: 08/16/10 07:03 Estimated GFR See note >=60 CERNER MILLENNIUM Comment: Calculated GFR not appropriate for patients less than 18 years of age. The National Kidney Disease Education Program (NKDEP) has recommended all laboratories report estimated GFR (eGFR) along with plasma creatinine measurements to assist you with recognition of early kidney disease. Caveats: ??Plasma creatinine should be at steady-state (unchanged within the past week). For patients multiply eGFR by 1.2.MDRD equation has not been validated for pediatric patients and is only valid for patients with age >= 18 years. At present, NKDEP does NOT recommend using the MDRD equation for drug dosing purposes and pharmacists should continue to use their current dosing methods. In addition, numerical eGFR values greater than 60 ml/min/1.73 square meters should be treated as > 60, and not an exact number due to greater inaccuracies at these higher values. Per NKDEP, they classify normal renal function as any GFR >60ml/min/1.73 square meters; chronic kidney disease when GFR <60, and renal failure when GFR <15. ??This calculation may not be valid for patients with atypical muscle mass (very lean or obese), acute renal failure, and in patients with diabetic kidney disease. References: http://nkdep.nih.gov/resources/NKDEP_Suggestn4Labs_0606_508.pdf http://www.kidney.org/professionals/kls/pdf/faq_gfr.pdf Blood specimen (specimen) 08/16/2010 6:00 AM EDT 08/16/2010 6:20 AM EDT Yas Oliver MD CHEMISTRY ORDERABLES [facility] * (ABNORMAL) CBC (with Diff) (08/16/2010 6:00 AM EDT) WBC 6.3 4.5 - 13.0 x10(3)/mcL CERNER MILLENNIUM RBC 2.52(L) 4.10 - 5.10 x10(6)/mcL CERNER MILLENNIUM Hemoglobin 7.2(L) 12.0 - 16.0 gm/dL [facility] Comment:Called by: _Zonia WILLIAMSON back by:MIKE MARTINEZ _, Date-Time: 6:48_. Hematocrit 21.4(L) 36.0 - 46.0 % CERNER MILLENNIUM MCV 84.9 76.0 - 98.0 fL CERNER MILLENNIUM MCH 28.6 25.0 - 35.0 pg CERNER MILLENNIUM MCHC 33.6 32.0 - 36.5 gm/dL CERNER MILLENNIUM Platelets 272 145 - 370 x10(3)/mcL CERNER MILLENNIUM RDWSD 43.9 35.0 - 46.0 fL CERNER MILLENNIUM RDWCV 14.1 10.9 - 14.4 % CERNER MILLENNIUM MPV 10.7 9.0 - 12.0 fL CERNER MILLENNIUM Blood specimen (specimen) 08/16/2010 6:00 AM EDT 08/16/2010 6:20 AM EDT Yas Oliver MD HEMATOLOGY ORDERABLE S CERNER MILLENNIUM * (ABNORMAL) REFLEX LAB-A-DIFF (08/15/2010 2:18 PM EDT) Neutrophils % 87.2(H) 37.0 - 77.0 % CERNER MILLENNIUM Neutr Abs (ANC) 8.41(H) 1.50 - 8.00 x10(3)/mcL CERNER MILLENNIUM Lymphocytes % 9.0(L) 20.0 - 50.0 % CERNER MILLENNIUM Lymphocytes Abs 0.9(L) 1.2 - 5.2 x10(3)/mcL CERNER MILLENNIUM Monocytes % 3.3 2.0 - 12.0 % CERNER MILLENNIUM Monocyte Abs 0.3 0.2 - 1.0 x10(3)/mcL CERNER MILLENNIUM Eosinophils % 0.1 0.0 - 7.0 % CERNER MILLENNIUM Eosinophils Abs 0.0 0.0 - 0.5 x10(3)/mcL CERNER MILLENNIUM Basophils % 0.1 0.0 - 2.0 % CERNER MILLENNIUM Basophils Abs 0.0 0.0 - 0.2 x10(3)/mcL CERNER MILLENNIUM Immature Gran % 0.30 0.00 - 0.66 % CERNER MILLENNIUM Debora Gran Abs 0.03 0.00 - 0.05 x10(3)/mcL CERNER MILLENNIUM Blood specimen (specimen) 08/15/2010 2:18 PM EDT 08/15/2010 2:24 PM EDT Yas Oliver MD HEMATOLOGY ORDERABLE S CERALIN TOMASENNIUM * (ABNORMAL) CBC (with Diff) (08/15/2010 2:18 PM EDT) WBC 9.6 4.5 - 13.0 x10(3)/mcL CERNER MILLENNIUM RBC 3.28(L) 4.10 - 5.10 x10(6)/mcL CERNER MILLENNIUM Hemoglobin 9.4(L) 12.0 - 16.0 gm/dL CERNER MILLENNIUM Hematocrit 28.4(L) 36.0 - 46.0 % CERNER MILLENNIUM MCV 86.6 76.0 - 98.0 fL CERNER MILLENNIUM MCH 28.7 25.0 - 35.0 pg CERNER MILLENNIUM MCHC 33.1 32.0 - 36.5 gm/dL CERNER MILLENNIUM Platelets 268 145 - 370 x10(3)/mcL CERNER MILLENNIUM RDWSD 44.4 35.0 - 46.0 fL CERNER MILLENNIUM RDWCV 14.0 10.9 - 14.4 % CERNER MILLENNIUM MPV 10.6 9.0 - 12.0 fL CERNER MILLENNIUM Blood specimen (specimen) 08/15/2010 2:18 PM EDT 08/15/2010 2:24 PM EDT Yas Oliver MD HEMATOLOGY ORDERABLE S CERALIN KEMPIUM * Surgical Pathology Report (08/15/2010 2:16 PM EDT) Surgical Pathology Report [id number] ? Location: [place]; 48; A The signing pathologist has (i) examined the relevant preparation(s) for the specimen(s) and (ii) rendered or confirmed the diagnosis(es). . ?Pathology Surgical Pathology Final Report Clinical Information Specimen Submitted: A - Bilat prox femurs Clinical History/Diagnosis: CPD Gross Description Labeled/Fixative: ? Bilat prox femurs, fresh. Qty/Size/Weight: ?Two, 9.5 x 4.5 x 4.0 cm. Tissue Description: ?? Portions of bone consistent with bilateral proximal ?femurs surfaced at one end with distorted, flattened femoral head, 3.6 x 3.3 x 2.5 cm on the apparent right side and 4.2 x 4.0 x 1.8 cm on the left side which also demonstrates partial fragmentation of the greater trochanter. ??Articular surfaces of both femoral heads are red, granular, irregular, and interrupted with osteophytes measuring up to 0.7 cm. ??Sectioning demonstrates red-brown marrow space with the articular cartilage measuring up to 0.1 cm. ??Areas of subchondral sclerosis are not identified. ??Subchondral cysts, however, are present, up to 0.5 cm. Sections/Processin g: ??(A1-A2) sections from the right femoral head ?following decalcification; (A3) right resection margin following decalcification; (A4-A5) femoral head from the apparent left side; (A6) left resection margin following decalcification. ??A loan representative portion is submitted for decalcification (block A1-A6). ??(R6, decal) ??aje/SHB Microscopic Description Slides reviewed, microscopic description not recorded. Diagnosis Bilateral proximal femur, resection: ?Articular degenerative changes consistent with degenerative joint ?disease with bone remodeling. CR-0 08/23/10 JLL 08/23/10 Verified by: ? Enrrique GIRALDO, Golden ?Pathologist ?(Electronic Signature) The attending pathologist whose signature appears on this report has reviewed all diagnostic slides and has edited the gross and/or microscopic portion of the report in rendering the final pathologic diagnosis. LINDA BASHIR 08/15/2010 2:16 PM EDT Yas Oliver MD PATHOLOGY/CYTOLOGY O RDERABLES LINDA BASHIR * SURGICAL PATHOLOGY REPORT (08/15/2010 2:16 PM EDT) Surgical Pathology Report ? [facility] ? Provider: ?? YAS OLIVER ?Pt. Name: ?? TANA SHELTON ? Acc #: ?[id number] ?Pt. ? Col Date: ?? 08/15/2010 ? /Sex: ?1995,(15 years),Female ? Rec Date: ?? 08/15/2010 ? LOC: ?[place] ? SURGICAL PATHOLOGY ? ---Pathologic Diagnosis--- ? Bilateral proximal femur, resection: ? Articular degenerative changes consistent with degenerative joint ? disease with bone remodeling. ? CR-0 ? 08/23/10 ? JLL ? 08/23/10 Verified by: ? Golden Osuna MD ? Pathologist ? (Electronic Signature) ? The attending pathologist whose signature appears on this report has ? reviewed all diagnostic slides and has edited the gross and/or ? microscopic portion of the report in rendering the final pathologic ? diagnosis. ? ---Microscopic Description--- ? Slides reviewed, microscopic description not recorded. ? ---Gross Description--- ? Labeled/Fixative: ? Bilat prox femurs, fresh. ? Qty/Size/Weight: ?Two, 9.5 x 4.5 x 4.0 cm. ? Tissue Description: ?? Portions of bone consistent with bilateral proximal ? femurs surfaced at one end with distorted, flattened ? femoral head, 3.6 x 3.3 x 2.5 cm on the apparent right side and ? 4.2 x 4.0 x 1.8 cm on the left side which also demonstrates partial ? fragmentation of the greater trochanter. ??Articular surfaces of both ? femoral heads are red, granular, irregular, and interrupted with ? osteophytes measuring up to 0.7 cm. ??Sectioning demonstrates red-brown ? marrow space with the articular cartilage measuring up to 0.1 cm. ??Areas of ? subchondral sclerosis are not identified. ??Subchondral cysts, however, are ? present, up to 0.5 cm. ? Sections/Processin g: ??(A1-A2) sections from the right femoral head ? following decalcification; (A3) right resection ? margin following decalcification; (A4-A5) femoral head from the apparent ? left side; (A6) left resection margin following decalcification. ??A ? loan representative portion is submitted for decalcification (block A1-A6). ? (R6, decal) ??aje/SHB ? ---Clinical Information--- ? Specimen Submitted: ? [facility] ? Provider: ?? YAS OLIVER ?Pt. Name: ?? TANA SHELTON ? Acc #: ?[id number] ?Pt. ? Col Date: ?? 08/15/2010 ? /Sex: ?1995,(15 years),Female ? Rec Date: ?? 08/15/2010 ? LOC: ?[place] ? SURGICAL PATHOLOGY ? A - Bilat prox femurs ? Clinical History/Diagnosis: ? CPDDH CERNER MILLENNIUM 08/15/2010 2:16 PM EDT Yas Oliver MD PATHOLOGY/CYTOLOGY O RDERABLES Performing Organization Address City/State/[facility] Co de Phone Number LINDA TOMASENNIUM * (ABNORMAL) REFLEX LAB-A-DIFF (08/15/2010 1:20 PM EDT) Neutrophils % 88.3(H) 37.0 - 77.0 % CERNER MILLENNIUM Neutr Abs (ANC) 7.80 1.50 - 8.00 x10(3)/mc L CERNER MILLENNIUM Lymphocytes % 8.6(L) 20.0 - 50.0 % CERNER MILLENNIUM Lymphocytes Abs 0.8(L) 1.2 - 5.2 x10(3)/mc L CERNER MILLENNIUM Monocytes % 2.8 2.0 - 12.0 % CERNER MILLENNIUM Monocyte Abs 0.3 0.2 - 1.0 x10(3)/mc L CERNER MILLENNIUM Eosinophils % 0.1 0.0 - 7.0 % CERNER MILLENNIUM Eosinophils Abs 0.0 0.0 - 0.5 x10(3)/mc L CERNER MILLENNIUM Basophils % 0.1 0.0 - 2.0 % CERNER MILLENNIUM Basophils Abs 0.0 0.0 - 0.2 x10(3)/mc L CERNER MILLENNIUM Immature Gran % 0.10 0.00 - 0.66 % CERNER MILLENNIUM Comment: Immature granulocytes(IG's)percentage and absolute count will include metamyelocytes, myelocytes, and promyelocytes. Blood smears from CBCs yielding IG's will be scanned manually for concordance. If this scan disagrees with the automated IG or if promyelocytes are noted, a manual differential will be performed. Debora Gran Abs 0.01 0.00 - 0.05 x10(3)/mc L CERNER MILLENNIUM Blood specimen (specimen) 08/15/2010 1:20 PM EDT 08/15/2010 1:30 PM EDT Yas Oliver MD HEMATOLOGY ORDERABLE S CERNER MILLENNIUM * REFLEX LAB-SCAN, PERIPHERAL BLOOD (08/15/2010 1:20 PM EDT) Plat Estimate Decreased CERNER MILLENNIUM RBC Morphology Normal CERNE R MILLENNIUM Blood specimen (specimen) 08/15/2010 1:20 PM EDT 08/15/2010 1:30 PM EDT Yas Oliver MD HEMATOLOGY ORDERABLE S CERNER MILLENNIUM * (ABNORMAL) CBC (with Diff) (08/15/2010 1:20 PM EDT) WBC 8.8 4.5 - 13.0 x10(3)/mcL CERNER MILLENNIUM RBC 2.68(L) 4.10 - 5.10 x10(6)/mcL CERNER MILLENNIUM Hemoglobin 7.8(L) 12.0 - 16.0 gm/dL CERNER MILLENNIUM Hematocrit 23.2(L) 36.0 - 46.0 % CERNER MILLENNIUM MCV 86.6 76.0 - 98.0 fL [facility] MCH 29.1 25.0 - 35.0 pg [facility] MCHC 33.6 32.0 - 36.5 gm/dL [facility] Platelets 31(L) 145 - 370 x10(3)/mcL [facility] Comment:CALLED HGB-PLT TO MS Karen CONNORS AT 1400 BY CARMELLA. RDWSD 44.8 35.0 - 46.0 fL [facility] RDWCV 14.2 10.9 - 14.4 % [facility] MPV 11.5 9.0 - 12.0 fL [facility] Blood specimen (specimen) 08/15/2010 1:20 PM EDT 08/15/2010 1:30 PM EDT Yas Oliver MD HEMATOLOGY ORDERABLE S Performing Organization Address City/[facility]/ZIP Co de Phone Number [facility] * REFLEX LAB-ANTIBODY SCREEN (08/15/2010 9:30 AM EDT) Ab Screen Interp Negative [facility] Expires at [id number] on: [id number] [facility] Blood specimen (specimen) 08/15/2010 9:30 AM EDT 08/15/2010 10:17 AM EDT Erika Curtis MD BLOOD BANK LAB ORDER MYRANDA Performing Organization Address City/[facility] Co de Phone Number [facility] * REFLEX LAB-ABO/RH TYPING (08/15/2010 9:30 AM EDT) ABORH Type O Pos [facility] Blood specimen (specimen) 08/15/2010 9:30 AM EDT 08/15/2010 10:17 AM EDT Erika Curtis MD BLOOD BANK LAB ORDER MYRANDA Performing Organization Address City/[facility]/ZIP Co de Phone Number [facility] * (ABNORMAL) REFLEX LAB-A-DIFF (08/15/2010 8:50 AM EDT) Neutrophils % 73.3 37.0 - 77.0 % CERNER MILLENNIUM Neutr Abs (ANC) 4.44 1.50 - 8.00 x10(3)/mc L CERNER MILLENNIUM Lymphocytes % 19.3(L) 20.0 - 50.0 % CERNER MILLENNIUM Lymphocytes Abs 1.2 1.2 - 5.2 x10(3)/mc L CERNER MILLENNIUM Monocytes % 5.4 2.0 - 12.0 % CERNER MILLENNIUM Monocyte Abs 0.3 0.2 - 1.0 x10(3)/mc L CERNER MILLENNIUM Eosinophils % 1.5 0.0 - 7.0 % CERNER MILLENNIUM Eosinophils Abs 0.1 0.0 - 0.5 x10(3)/mc L CERNER MILLENNIUM Basophils % 0.3 0.0 - 2.0 % CERNER MILLENNIUM Basophils Abs 0.0 0.0 - 0.2 x10(3)/mc L CERNER MILLENNIUM Immature Gran % 0.20 0.00 - 0.66 % CERNER MILLENNIUM Comment: Immature granulocytes(IG's)percentage and absolute count will include metamyelocytes, myelocytes, and promyelocytes. Blood smears from CBCs yielding IG's will be scanned manually for concordance. If this scan disagrees with the automated IG or if promyelocytes are noted, a manual differential will be performed. Debora Gran Abs 0.01 0.00 - 0.05 x10(3)/mc L CERNER MILLENNIUM Blood specimen (specimen) 08/15/2010 8:50 AM EDT 08/15/2010 9:11 AM EDT Erika Curtis MD HEMATOLOGY ORDERABLE S LINDA TOMASENNIUM * CBC (with Diff) (08/15/2010 8:50 AM EDT) WBC 6.1 4.5 - 13.0 x10(3)/mcL CERNER MILLENNIUM RBC 4.71 4.10 - 5.10 x10(6)/mcL CERNER MILLENNIUM Hemoglobin 13.6 12.0 - 16.0 gm/dL [facility] Hematocrit 40.6 36.0 - 46.0 % LINDA KEMPIUM MCV 86.2 76.0 - 98.0 fL LINDA KEMPIUM MCH 28.9 25.0 - 35.0 pg LINDA KEMPIUM MCHC 33.5 32.0 - 36.5 gm/dL LINDA KEMPIUM Platelets 307 145 - 370 x10(3)/mcL LINDA KEMPIUM RDWSD 44.7 35.0 - 46.0 fL [facility] RDWCV 14.2 10.9 - 14.4 % LINDA KEMPIUM MPV 10.9 9.0 - 12.0 fL LINDA KEMPIUM Blood specimen (specimen) 08/15/2010 8:50 AM EDT 08/15/2010 9:11 AM EDT Erika Curtis MD HEMATOLOGY ORDERABLE S LINDA BASHIR documented in this encounter Visit Diagnoses Diagnosis Acquired dysplasia of hip, bilateral- Primary Other acquired deformities of hip DDH (developmental dysplasia of the hip) Other congenital deformity of hip (joint) Other congenital deformity of hip (joint) DUMMY CODE, SEND TO [facility] Lack of normal physiological development, unspecified Scoliosis (and kyphoscoliosis), idiopathic documented in this encounter Administered Medications Inactive Administered Medications - up to 3 most recent administrations Medication Order MAR Action Action Date Dose Rate Site acetaminophen (TYLENOL) tablet 500 mg 500 mg (11 mg/kg/dose), Oral, EVERY 6 HOURS PRN, Starting on Thu08/16/10 at 2027, Until Thu08/19/10 at 1719, Pain, Maximum dose of acetaminophen is 90 mg/kg (up to 4000 mg maximum) from all sources in 24 hours., Routine Given 08/18/2010 5:13 PM EDT 500 mg Given 08/18/2010 10:32 AM EDT 500 mg Given 08/17/2010 11:27 AM EDT 500 mg baclofen (LIORESAL) tablet 10 mg 10 mg (0.22 mg/kg/dose), Oral, EVERY MORNING, First dose on Thu08/16/10 at 0700, Until Discontinued, Routine Given 08/19/2010 7:50 AM EDT 10 mg Given 08/18/2010 8:30 AM EDT 10 mg Given 08/17/2010 8:26 AM EDT 10 mg bisacodyl (DULCOLAX) suppository 10 mg 10 mg (0.22 mg/kg/dose), Rectal, 2 TIMES DAILY PRN, Starting on Dianne 08/15/10 at 1916, Until 08/19/10 at 1719, Constipation, Routine Given 08/18/2010 5:14 PM EDT 10 mg calcium carbonate (TUMS) tablet 648 mg 648 mg (14.3 mg/kg/dose), Oral, 3 TIMES DAILY, First dose on Thu08/16/10 at 0900, 9 doses, Last dose on Thu08/18/10 at 2100 Given 08/18/2010 8:08 PM EDT 648 mg Given 08/18/2010 2:18 PM EDT 648 mg Given 08/18/2010 8:30 AM EDT 648 mg ceFAZolin (ANCEF) 1g in dextrose 5% 50mL 1,000 mg (22 mg/kg/dose), Intravenous, EVERY 8 HOURS, 3 doses, First dose on Dianne 08/15/10 at 1600, Last dose on Thu08/16/10 at 0800 Given 08/16/2010 8:00 AM EDT 1,000 mg Given 08/16/2010 12:00 AM EDT 1,000 mg Given 08/15/2010 4:00 PM EDT 1,000 mg diaZEPam (VALIUM) tablet 5 mg 5 mg (0.11 mg/kg/dose), Oral, EVERY 6 HOURS PRN, Starting on 08/17/10 at 0735, Until Thu08/19/10 at 1719, Anxiety, Spasm, Routine Given 08/18/2010 2:18 PM EDT 5 m g Given 08/18/2010 8:20 AM EDT 5 mg Given 08/17/2010 2:34 PM EDT 5 mg docusate sodium (COLACE) 10 mg/mL pedi oral liquid 100 mg 100 mg (2.2 mg/kg/dose), Oral, DAILY, First dose (after last reorder) on 08/17/10 at 0900, Until Discontinued, Routine Given 08/19/2010 12:39 PM EDT 100 mg docusate sodium (COLACE) capsule 100 mg 100 mg (2.2 mg/kg/dose), Oral, DAILY, First dose on [facility] 08/17/10 at 0900, Until Discontinued, Routine Given 08/18/2010 8:30 AM EDT 100 mg Given 08/17/2010 8:27 AM EDT 100 mg famotidine (PEPCID) 4 mg/mL injection 20 mg 20 mg (0.441 mg/kg/dose), Intravenous, 2 TIMES DAILY, First dose on Dianne 08/15/10 at 2100, Until Discontinued, Administer over 5 Minutes Given 08/17/2010 8:47 PM EDT 20 mg 60 mL /hr Given 08/17/2010 8:27 AM EDT 20 mg 60 mL/hr Given 08/16/2010 10:05 PM EDT 20 mg 60 mL/hr famotidine (PEPCID) tablet 20 mg 20 mg (0.441 mg/kg/dose), Oral, 2 TIMES DAILY, First dose on [place] 08/18/10 at 1100, Until Discontinued, Routine Given 08/19/2010 8:51 AM EDT 20 mg Given 08/18/2010 8:09 PM EDT 20 mg Given 08/18/2010 10:33 AM EDT 20 mg HYDROmorphone (PF) (DILAUDID) 2 mg/mL injection 0.2-0.4 mg 0.2-0.4 mg (0.46906-9.45006 mg/kg/dose), Intravenous, EVERY 5 MIN PRN, Starting on Dianne 08/15/10 at 1634, Until [facility] 08/15/10 at 1837, Pain, For moderate pain give: 0.2 mg every 5 minute prn For severe pain give: 0.4 mg every 5 minutes prn Maximum dose: 4 mg per hour Hold for respiratory rate less than 10 per minute., PACU Recovery, Routine Given 08/15/2010 5:00 PM EDT 0.4 mg Given 08/15/2010 4:42 PM EDT 0.4 mg Given 08/15/2010 4:35 PM EDT 0.2 mg HYDROmorphone (PF) (DILAUDID) 2 mg/mL injection 0.5 mg 0.5 mg (0.011 mg/kg/dose), Intravenous, EVERY 2 HOURS PRN, Starting on Dianne 08/15/10 at 1550, Until 08/17/10 at 1056, Pain, PACU Recovery, Routine Given 08/15/2010 7:14 PM EDT 0.5 mg ketorolac (TORADOL) injection 15 mg 15 mg (0.33 mg/kg/dose), Intravenous, EVERY 6 HOURS PRN, Starting on Dianne 08/15/10 at 1544, Until 08/17/10 at 1543, Pain, Routine Given 08/16/2010 1:00 PM EDT 15 mg Given 08/16/2010 6:00 AM EDT 15 mg Given 08/16/2010 12:00 AM EDT 15 mg lactated ringers 500 mL IV bolus Intravenous, ONCE, 1 dose, On Thu08/16/10 at 1130 Given 08/16/2010 11:30 AM EDT lactated ringers infusion 1,000 mL 1,000 mL, at 100 mL/hr, Intravenous, CONTINUOUS, Starting on Dianne 08/15/10 at 0745, Until 08/17/10 at 1056 New Bag 08/17/2010 8:30 AM EDT 1,000 mLs 100 mL/hr New Bag 08/16/2010 10:00 PM EDT 1,000 mLs 100 mL/hr New Bag 08/16/2010 11:30 AM EDT 1,000 mLs 100 mL/hr miconazole (MICOTIN) 2 % powder Topical, 2 TIMES DAILY, First dose on Thu08/16/10 at 0930, Until Discontinued Given 08/19/2010 8:51 AM EDT each Given 08/18/2010 8:09 PM EDT each Given 08/18/2010 8:37 AM EDT each ondansetron (ZOFRAN) injection 4 mg 4 mg (0.0881 mg/kg/dose), Intravenous, EVERY 30 MIN PRN, 1 dose, Starting on Dianne 08/15/10 at 1634, Until Dianne 08/15/10 at 1735, Nausea, Consider prochlorperazine if ineffective., PACU Recovery, Routine Given 08/15/2010 5:35 PM EDT 4 mg ondansetron (ZOFRAN) injection 4 mg 4 mg (0.0881 mg/kg/dose), Intravenous, EVERY 8 HOURS PRN, Starting on Dianne 08/15/10 at 1544, Until 08/19/10 at 1719, Nausea, Routine Given 08/16/2010 8:21 AM EDT 4 mg Given 08/16/2010 12:00 AM EDT 4 mg OXYcodone (ROXICODONE) 5 mg/5 mL solution 4.5 mg 4.5 mg (0.1 mg/kg/dose ? 45.4 kg), Oral, EVERY 4 HOURS PRN, Starting on Dianne 08/15/10 at 1544, Until Thu08/18/10 at 0845, Pain, Routine Given 08/18/2010 4:15 AM EDT 4.5 mg Given 08/17/2010 11:27 AM EDT 4.5 mg OXYcodone (ROXICODONE) immediate release tablet 5 mg 5 mg (0.11 mg/kg/dose), Oral, EVERY 4 HOURS PRN, Starting on Thu08/18/10 at 0844, Until 08/19/10 at 1719, Pain, Routine Given 08/18/2010 5:14 PM EDT 5 mg Given 08/18/2010 10:33 AM EDT 5 mg tiZANidine (ZANAFLEX) tablet 2 mg 2 mg (0.0441 mg/kg/dose), Oral, 3 TIMES DAILY, First dose on Thu08/15/10 at 2100, Until Discontinued, Routine Given 08/19/2010 2:57 PM EDT 2 mg Given 08/19/2010 8:51 AM EDT 2 mg Given 08/18/2010 8:09 PM EDT 2 mg documented in this encounter Active and Recently Administered Medications Times are shown in EDT. Scheduled Medication Order 08/17/2010 08/18/2010 08/19/2010 baclofen (LIORESAL) tablet 10 mg (CANCELED) 10 mg (0.22 mg/kg/dose), Oral, EVERY MORNING, First dose on Thu08/16/10 at 0700, Until Discontinued, Routine 0826 (Given - Provider: Uma Chanel RN) 0830 (Given - Provider: Uma Chanel RN) 0750 (Given - Provider: Elmer Cotto RN) calcium carbonate (TUMS) tablet 648 mg () 648 mg (14.3 mg/kg/dose), Oral, 3 TIMES DAILY, First dose on Thu08/16/10 at 0900, 9 doses, Last dose on Thu08/18/10 at 2100 0827 (Given - Provider: Uma Chanel RN)1434 (Given - Provider: Uma Chanel RN)2043 (Given - Provider: Deanna Khan RN) 0830 (Given - Provider: Uma Chanel RN)141 (Given - Provider: Uma Chanel RN)2007 (Given - Provider: Deanna Khan RN) docusate sodium (COLACE) 10 mg/mL pedi oral liquid 100 mg (CANCELED)(Linked Group 1) 100 mg (2.2 mg/kg/dose), Oral, DAILY, First dose (after last reorder) on 08/17/10 at 0900, Until Discontinued, Routine 08 (See Alternative - Provider: Uma Chanel RN) 0830 (See Alternative - Provider: Uma Chanel RN) 1239 (Given - Provider: Elmer Cotto RN) docusate sodium (COLACE) capsule 100 mg (CANCELED)(Linked Group 1) 100 mg (2.2 mg/kg/dose), Oral, DAILY, First dose on 08/17/10 at 0900, Until Discontinued, Routine 0827 (Given - Provider: Uma Chanel RN) 0830 (Given - Provider: Uma Chanel RN) 1239 (See Alternative - Provider: Elmer Cotto RN) famotidine (PEPCID) 4 mg/mL injection 20 mg (CANCELED) 20 mg (0.441 mg/kg/dose), Intravenous, 2 TIMES DAILY, First dose on Dianne 08/15/10 at 2100, Until Discontinued, Administer over 5 Minutes 0827 (Given - Provider: Uma Chanel RN)204 (Given - Provider: Deanna Khan RN) 0900 (Not Given - Provider: Uma Chanel RN - Reason: Loss of access) famotidine (PEPCID) tablet 20 mg (CANCELED) 20 mg (0.441 mg/kg/dose), Oral, 2 TIMES DAILY, First dose on Thu08/18/10 at 1100, Until Discontinued, Routine 1033 (Given - Provider: Uma Chanel RN)2008 (Given - Provider: Deanna Khan RN) 0851 (Given - Provider: Elmer Cotto, EUNICE) miconazole (MICOTIN) 2 % powder Topical, 2 TIMES DAILY, First dose on Thu08/16/10 at 0930, Until Discontinued 0827 (Given - Provider: Uma Chanel RN)204 (Given - Provider: Deanna Khan RN) 0837 (Given - Provider: Uma Chanel RN)2008 (Given - Provider: Deanna Khan RN) 0851 (Given - Provider: Elmer Cotto RN) tiZANidine (ZANAFLEX) tablet 2 mg 2 mg (0.0441 mg/kg/dose), Oral, 3 TIMES DAILY, First dose on Thu08/15/10 at 2100, Until Discontinued, Routine 1125 (Given - Provider: Uma Chanel RN)1434 (Given - Provider: Uma Chanel RN)2046 (Given - Provider: Deanna Khan RN) 0830 (Given - Provider: Uma Chanel RN)1418 (Given - Provider: Uma Chanel RN)2008 (Given - Provider: Deanna Khan RN) 0851 (Given - Provider: Elmer Cotto, EUNICE)1457 (Given - Provider: Elmer Cotto, EUNICE) Continuous Medication Order 08/17/2010 08/18/2010 08/19/2010 lactated ringers infusion 1,000 mL (CANCELED) 1,000 mL, at 100 mL/hr, Intravenous, CONTINUOUS, Starting on Dianne 08/15/10 at 0745, Until 08/17/10 at 1056 0830 (New Bag - Provider: Uma Chanel RN)1113 (Stopped - Provider: Uma Chanel RN) PRN Medication Order 08/17/2010 08/18/2010 08/19/2010 acetaminophen (TYLENOL) tablet 500 mg (CANCELED) 500 mg (11 mg/kg/dose), Oral, EVERY 6 HOURS PRN, Starting on 08/16/10 at 2027, Until 08/19/10 at 1719, Pain, Maximum dose of acetaminophen is 90 mg/kg (up to 4000 mg maximum) from all sources in 24 hours., Routine 0551 (Given - Provider: Lorna Padilla RN)1127 (Given - Provider: Uma Chanel RN) 1032 (Given - Provider: Uma Chanel RN)1713 (Given - Provider: Uma Chanel RN) bisacodyl (DULCOLAX) suppository 10 mg (CANCELED) 10 mg (0.22 mg/kg/dose), Rectal, 2 TIMES DAILY PRN, Starting on Dianne 08/15/10 at 1916, Until Thu08/19/10 at 1719, Constipation, Routine 1714 (Given - Provider: Uma Chanel RN) diaZEPam (VALIUM) 5 mg/5 mL Oral solution 5 mg(Linked Group 2) 5 mg (0.11 mg/kg/dose), Oral, EVERY 6 HOURS PRN, Starting on 08/17/10 at 0735, Until 08/19/10 at 1719, Anxiety, Spasm, Routine 0827 (See Alternative - Provider: Uma Chanel RN)1434 (See Alternative - Provider: Uma Chanel RN) 0820 (See Alternative - Provider: Uma Chanel RN)1418 (See Alternative - Provider: Uma Chanel RN) diaZEPam (VALIUM) tablet 5 mg (CANCELED)(Linked Group 2) 5 mg (0.11 mg/kg/dose), Oral, EVERY 6 HOURS PRN, Starting on 08/17/10 at 0735, Until 08/19/10 at 1719, Anxiety, Spasm, Routine 0827 (Given - Provider: Uma Chanel RN)1434 (Given - Provider: Uma Chanel RN) 0820 (Given - Provider: Uma Chanel RN)1418 (Given - Provider: Uma Chanel RN) OXYcodone (ROXICODONE) 5 mg/5 mL solution 4.5 mg (CANCELED) 4.5 mg (0.1 mg/kg/dose ? 45.4 kg), Oral, EVERY 4 HOURS PRN, Starting on Dianne 08/15/10 at 1544, Until 08/18/10 at 0845, Pain, Routine 1127 (Given - Provider: Uma Chanel RN) 0415 (Given - Provider: Lorna Padilla RN) OXYcodone (ROXICODONE) immediate release tablet 5 mg 5 mg (0.11 mg/kg/dose), Oral, EVERY 4 HOURS PRN, Starting on 08/18/10 at 0844, Until 08/19/10 at 1719, Pain, Routine 1033 (Given - Provider: Uma Chanel RN)1714 (Given - Provider: Uma Chanel RN) sennosides (SENOKOT) 8.8 mg/5 mL oral syrup 17.6-35.2 mg 17.6-35.2 mg (0.388-0.775 mg/kg/dose), Oral, 2 TIMES DAILY PRN, Starting on Dianne 08/15/10 at 1916, Until 08/19/10 at 1719, Constipation, Routine Linked Groups Order Group 1: docusate sodium (COLACE) 10 mg/mL pedi oral liquid 100 mg (CANCELED)Jump to med 100 mg (2.2 mg/kg/dose), Oral, DAILY, First dose (after last reorder) on 08/17/10 at 0900, Until Discontinued, Routine Or docusate sodium (COLACE) capsule 100 mg (CANCELED)Jump to med 100 mg (2.2 mg/kg/dose), Oral, DAILY, First dose on 08/17/10 at 0900, Until Discontinued, Routine Group 2: diaZEPam (VALIUM) 5 mg/5 mL Oral solution 5 mgJump to med 5 mg (0.11 mg/kg/dose), Oral, EVERY 6 HOURS PRN, Starting on 08/17/10 at 0735, Until 08/19/10 at 1719, Anxiety, Spasm, Routine Or diaZEPam (VALIUM) tablet 5 mg (CANCELED)Jump to med 5 mg (0.11 mg/kg/dose), Oral, EVERY 6 HOURS PRN, Starting on 08/17/10 at 0735, Until 08/19/10 at 1719, Anxiety, Spasm, Routine documented in this encounter Care Teams [facility] Worker Relationship Specialty Start Date End Date Naina Lindsey MD [address] [place] [address] PCP - General 03/19/10 08/25/16 documented as of this encounter
--- OUTSIDE RECORDS SUMMARY | 2023-11-09 18:20 | XMS_ITS | Encounter Summary ---
Author Organization [facility] Address [address] [place] [address] Care Team Providers Care Fishing Vessel Deckhand Name Role Phone César Robert MD, Naina Primary Care Provider [phone] Encounter Details Date Type Department Care Team (Late st Contact Info) Description 04/24/2023 Lab Requisition [facility] Pathology & Laboratory Medicine - [address] [id number] Outr Resulting Lab, Provider Social History Tobacco Use Types Packs/Day Years Used Date Smoking Tobacco: Never Assessed Interpersonal Safety Answer Date Record ed Physically Hurt Never 11/27/2019 Verbally Threaten Not on file 11/27/2019 Sex and Gender Information Value Date Recorded Sex Assigned at Not on file Gender Identity Not on file Sexual Orientation Not on file documented as of this encounter Plan of Treatment Not on file documented as of this encounter Procedures Procedure Name Priority Date/Time Associated Diagnosis Comments ACUTE HEPATITIS PROFILE Routine 04/24/2023 10:00 EST documented in this encounter Results * ACUTE HEPATITIS PROFILE (04/24/2023 10:00 EST) Hep B Surface Ag Negative Negative 04/24/2023 22:33 EST [facility] Hep C Antibody Negative Negative 04/24/2023 22:33 EST [facility] Hepatitis A Antibody, IgM Negative Negative 04/24/2023 22:33 EST [facility] Comment:The results of this assay can be falsely lowered due to the consumption of Biotin. Hepatitis B Core Ab, Total Negative Negative 04/24/2023 22:33 EST [facility] Blood VENOUS BLOOD / Unknown 04/24/2023 10:00 EST 04/24/2023 21:06 EST Provider Outr Resulting Lab CHEMISTRY & BLOOD GAS ORDERABLES [facility] [address] [place] [address] documented in this encounter Visit Diagnoses Not on filedocumented in this encounter Care Teams Fishing Vessel Deckhand Relationship Specialty Start Date End Date Naina Lindsey MD [address] [place] [place] [address] PCP - General 02/13/15 documented as of this encounter
--- OUTSIDE RECORDS SUMMARY | 2023-11-09 18:20 | XMS_ITS | Encounter Summary ---
Author Organization [facility] [address] Care Team Providers Care Ion Exchange Operator Name Role Phone Naina Lindsey MD Primary Care Provider [phone] Reason for Referral * Consultation (Routine) - Complete - Patient Will Schedule External Appt Specialty Diagnoses / Procedures Referred By Contac t Referred To Contact Orthotics Diagnoses Cerebral palsy Yas Ramirez MD [facility] [place] [address] Referral ID Status Reason Start Date Expiration Date Visits Requested Visits Authorized [id number] Complete - Patient Will Schedule External Appt Assume Subset of Care 09/30/2010 03/29/2011 1 1 * Consultation (Routine) - Complete - Patient Will Schedule External Appt Specialty Diagnoses / Procedures Referred By Contac t Referred To Contact Orthotics Diagnoses Cerebral palsy Yas Ramirez MD [facility] [place] [address] Referral ID Status Reason Start Date Expiration Date Visits Requested Visits Authorized [id number] Complete - Patient Will Schedule External Appt Assume Subset of Care 09/30/2010 03/29/2011 1 1 Reason for Visit * Reason Comments Developmental Delay serial casting Encounter Details Date Type Department Care Team (Late st Contact Info) Description 09/30/2010 9:00 AM EDT Follow-Up Orthopaedics at [facility] [place] [address] Yas Ramirez MD [facility] [place] [address] Cerebral palsy (Primary Dx) Discharge Disposition: Home Social History Tobacco Use Types Packs/Day Years Used Date Smoking Tobacco: Never Sex and Gender Information Value Date Recorded Sex Assigned at Not on file Gender Identity Not on file Sexual Orientation Not on file documented as of this encounter Progress Notes * Yas Ramirez MD - 09/30/2010 10:28 AM EDT Lizbeth is seen in followup. She has underlying traumatic brain injury and a cerebral palsy type picture. Because of persistent pain, she underwent bilateral proximal femoral resections done on 08/16/10. She had her spica cast removed at last visit. She had a for several days although last few days have been better. Because of challenges with narcotic pain medicine mother has transitioned to just using Motrin only. This seems adequately tolerated. Current issues remain: Difficulty with her Oyer sling. The current sling has anterior leg extensions that require adequate tensioning of her limbs and did not provide adequate support. We discussed obtaining a new Oyer sling that has full posterior support from head to foot. There were some questions about her care. Current chair has been adjusted so that the seat angle has been opened up to about 50??, allowing more recline. The seems comfortable although she still has some difficulty maintaining head positioning in her head rest. This is likely because of residual lumbar scoliosis. She is using her leg rests in extension. Discussed that I would allow her to increase and tolerate knee flexion within her limits of discomfort. We also discussed obtaining a hip abduction orthosis to help with positioning as well as some Multi-Podus boots for positioning while in bed. Lizbeth is seen and examined in her chair. She seems more comfortable. She is able to answer some questions with yes and no. She states that she is doing good. Plan would be to see her back in 3 weeks or so for recheck. This was prior to her initiating her school program we can address those issues regarding positioning, and a wheelchair. We did provide prescriptions for those equipment pieces that she needs. documented in this encounter Miscellaneous Notes * Miscellaneous - Delbert Jewelry Department Supervisor - 10/31/2010 9:10 AM EDT documented in this encounter Plan of Treatment Upcoming Encounters Date Type Department Care Team (Late st Contact Info) Description 11/19/2023 2:30 PM EDT TH Visit (TeleHealth) [place] [address] Lilli Joy APRN [facility] [place] [address] 11/30/2023 12:50 PM EDT [place] [address] 12/03/2023 12:30 PM EDT Office [place] [address] Hollie Ambriz MD [facility] [place] [address] Scheduled Referrals Name Type Priority Associated Diagnoses Orde r Schedule REFERRAL FOR ORTHOTICS Outpatient Referral Routine Cerebral palsy Ordered: 09/30/2010 REFERRAL FOR ORTHOTICS Outpatient Referral Routine Cerebral palsy Ordered: 09/30/2010 documented as of this encounter Visit Diagnoses Diagnosis Cerebral palsy- Primary Infantile cerebral palsy, unspecified documented in this encounter Care Teams Ion Exchange Operator Relationship Specialty Start Date End Date Naina Lindsey MD [address] [place] [address] PCP - General 03/19/10 08/25/16 documented as of this encounter
--- OUTSIDE RECORDS SUMMARY | 2023-11-09 18:20 | XMS_ITS | Encounter Summary ---
Author Organization [facility] Address [facility] [place] [address] Care Team Providers Care Improvement Analyst Name Role Phone Naina Lindsey MD Primary Care Provider [phone] Reason for Referral * Physical Therapy (Routine) - Complete - Patient Will Schedule External Appt Specialty Diagnoses / Procedures Referred By Karlo t Referred To Contact Physical Therapy Diagnoses Developmental delay Yas Ramirez MD [facility] [place] [address] Referral ID Status Reason Start Date Expiration Date Visits Requested Visits Authorized [id number] Complete - Patient Will Schedule External Appt Evaluate and Treat 09/24/2010 03/23/2011 1 1 Reason for Visit * Reason Comments Follow Up Surgery spica cast Encounter Details Date Type Department Care Team (Late st Contact Info) Description 09/24/2010 2:20 PM EDT [place] [phone] Yas Ramirez MD [facility] [place] [address] Developmental delay (Primary Dx); 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 She has had scoliosis fusion, and because of persistently pain ful Hips she underwent bilateral proximal femoral resections, 08/16/10. She has been doing well and has been fairly comfortable. Exam: Cast is removed. Wounds have healed well. SKin in excellent condition. Tana tolerates mobility but expresses discomfort. RIght distal femoral osteotomy has healed. A; Stable P: Abduction pillow for comfort. Discussed use of pain meds as needed , F/u in 2 weeks, no xrays needed. documented in this encounter Plan of Treatment Upcoming Encounters Date Type Department Care Team (Late st Contact Info) Description 11/19/2023 2:30 PM EDT TH Visit (TeleHealth) [place] [phone] Lilli Joy [place]N [facility] [place] [address] 11/30/2023 12:50 PM EDT [place] [address] 12/03/2023 12:30 PM EDT Office [place] [phone] Hollie Ambriz MD [facility] [place] [address] Scheduled Referrals Name Type Priority Associated Diagnoses Orde r Schedule REFERRAL TO PHYSICAL THERAPY Outpatient Referral Routine Developmental delay Ordered: 09/24/2010 documented as of this encounter Visit Diagnoses Diagnosis Developmental delay- Primary Lack of normal physiological development, unspecified 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
--- OUTSIDE RECORDS SUMMARY | 2023-11-09 18:20 | XMS_ITS | Encounter Summary ---
Author Organization [facility] [place] [address] Care Team Providers Care Asphalt Coater Name Role Phone Naina Lindsey MD Primary Care Provider [phone] Encounter Details Date Type Department Care Team (Late st Contact Info) Description 07/11/2010 9:00 AM EDT [place] [phone] Andrade Gordon MD [facility] [place] [address] Discharge Disposition: Home Social History Tobacco Use Types Packs/Day Years Used Date Smoking Tobacco: Never Assessed Sex and Gender Information Value Date Recorded Sex Assigned at Not on file Gender Identity Not on file Sexual Orientation Not on file documented as of this encounter Plan of Treatment Upcoming Encounters Date Type Department Care Team (Late st Contact Info) Description 11/19/2023 2:30 PM EDT TH Visit (TeleHealth) [place] [address] Lilli Joy APRN [facility] [place] [address] 11/30/2023 12:50 PM EDT [place] [address] 12/03/2023 12:30 PM EDT Office [place] [address] Hollie Ambriz MD [facility] [place] [address] documented as of this encounter Visit Diagnoses Not on filedocumented in this encounter Care Teams Asphalt Coater Relationship Specialty Start Date End Date Naina Lindsey MD [address] [place] [address] [address] [facility] [place] [address] PCP - General 03/19/10 08/25/16 documented as of this encounter
--- OUTSIDE RECORDS SUMMARY | 2023-11-09 18:20 | XMS_ITS | Encounter Summary ---
Author Organization [facility] Address [address] [place] [address] Care Team Providers Care Noc Engineer Name Role Phone César Robert MD, Naina Primary Care Provider [phone] Reason for Visit * Reason Onset Date Comments Appointment Related 10/25/2019 Encounter Details Date Type Department Care Team (Late st Contact Info) Description 10/25/2019 Telephone [facility] Rehabilitation Therapy - [address] [id number] Therapy, Physical Appointment Related Social History Tobacco Use Types Packs/Day Years Used Date Smoking Tobacco: Never Assessed Sex and Gender Information Value Date Recorded Sex Assigned at Not on file Gender Identity Not on file Sexual Orientation Not on file documented as of this encounter Miscellaneous Notes * Telephone Encounter - Gretchen Dietz MA - 10/25/2019 1514 EDT I spoke with the patients caregiver and reminded them of their wheelchair clinic appointment, to occur tomorrow at [facility]. They confirmed their availability for this date/time. Gretchen Dietz MA 10/25/2019 15:15 documented in this encounter Plan of Treatment Not on file documented as of this encounter Visit Diagnoses Not on filedocumented in this encounter Care Teams Noc Engineer Relationship Specialty Start Date End Date Naina Lindsey MD [address] [place], [place] [address] PCP - General 02/13/15 documented as of this encounter
--- OUTSIDE RECORDS SUMMARY | 2023-11-09 18:20 | XMS_ITS | Encounter Summary ---
Author Organization [facility] Address [facility] [place] [address] Care Team Providers Care Petrologist Name Role Phone Naina Lindsey MD Primary Care Provider [phone] Encounter Details Date Type Department Care Team (Late st Contact Info) Description 08/15/2010 7:43 AM EDT Anesthesia Event [place] [phone] Erika Curtis MD [facility] [place] [address] Anesthesia Record Procedure Summary Procedure Name Responsible Anesthesiologist Anesthesia Start Time Anesthesia Stop Time @ACETABULOPLASTY (GIRDLESTONE), RESECTION FEMORAL HEAD, BILATERAL (WRVU 16.09) (Bilateral: Hip) Erika Curtis MD 08/15/10 0743 08/15/10 1538 Events Date Time Event Comment 08/15/2010 0743 Start 1538 Stop Meds * Agents No agents on file. * Blood No blood administrations on file. Lines, Drains, and Airways Type Details Placement Removal Urethral Catheter 08/15/10; indwelling double lumen catheter; 100% silicone; 16; inserted (placed by Emiliano DAWSON); 1; drainage bag to dependent drainage; 08/19/10; 1306 08/15/10 0000 by Mary Yeager RN 08/19/10 1306 by Elmer Cotto RN (RETIRED) Peripheral IV Line - Single Lumen 08/15/10; 08/18/10; 0830 08/15/10 0000 by Mary Yeager RN 08/18/10 0830 by Uma Chanel RN Incision 08/15/10; hip; 12/23/21 (LDA cleanup utility RA#[id number]); 1715 (LDA cleanup utility RA#[id number]) 08/15/10 0000 by Mary Yeager RN 12/23/21 1715 by Philippe Bonner Incision knee; 12/23/21 (LDA cleanup utility RA#[id number]); 1715 (LDA cleanup utility RA#[id number]) 08/15/10 1349 by 12/23/21 1715 by Philippe Bonner documented in this encounter Social History Tobacco Use Types Packs/Day Years Used Date Smoking Tobacco: Never Sex and Gender Information Value Date Recorded Sex Assigned at Not on file Gender Identity Not on file Sexual Orientation Not on file documented as of this encounter OR Notes * Anesthesia Postprocedure Evaluation - Erika Curtis MD - 08/15/2010 5:00 PM EDT Patient: Tana Cavazos Procedure(s) Performed: ??ACETABULOPLASTY (GIRDLESTONE), RESECTION FEMORAL HEAD, BILATERAL; CAST APPLICATION, HIP SPICA, BOTH LEGS; REMOVAL IMPLANT, DEEP, BRUNO; ??OSTEOTOMY, FEMUR SHAFT OR SUPRACONDYLAR W/O FIXATION Patient location: PACU Post-op pain: Adequate analgesia Post-op nausea: no nausea or vomiting Last Vitals: Filed Vitals: 08/16/10 1000 BP: 103/53 Pulse: 156 Temp: 99.7 ??F (37.6 ??C) Resp: Post-op cardiovascular and respiratory status: is stable Level of consciousness: awake, responds to stimulation and sedated Complications: no apparent complications and tolerated the procedure well Fluid Status: normal Tana is just waking up in the PACU with her parents present. She smiled at her mother's voice. Shehas had no n/v and seems in minimal discomfort. * Anesthesia Preprocedure Evaluation - Erika Curtis MD - 08/14/2010 8:16 PM EDT Anesthesia Evaluation Patient summary reviewed and Nursing notes reviewed No hx of anesthetic complications Airway Dental Pulmonary - negative ROS and normal exam (+) recent URI (pnd, mild cough. seen by pcp.), (-) rhonchi, decreased breath sounds, wheezes, rales and stridor Cardiovascular - negative ROS and normal exam Neuro/Psych (+) seizures (none in years) well controlled, GI/Hepatic/Renal - negative ROS Endo/Other - negative ROS Abdominal Anesthesia Plan ASA 2 General with inhalational induction FMI; Labs with iv placement Anesthetic plan and risks discussed with patient, mother and father. Use of blood products discussed with and consented by patient, father and mother. Plan discussed with WAD PRINTING MACHINE OPERATOR. documented in this encounter Miscellaneous Notes * Addendum Note - Erika Curtis MD - 08/18/2010 3:42 PM EDT * Addendum Note - Amy Gates - 08/16/2010 12:47 PM EDT Addendum created 08/16/10 1247 by Amy Gates Modules edited:Anesthesia Events, Anesthesia Responsible Staff documented in this encounter Plan of Treatment Upcoming Encounters Date Type Department Care Team (Late st Contact Info) Description 11/19/2023 2:30 PM EDT TH Visit (TeleHealth) [place] [address] Lilli Joy APRN [facility] [address] 11/30/2023 12:50 PM EDT [place]ointment [place] [address] 12/03/2023 12:30 PM EDT Office Visit [place] [address] Hollie Ambriz MD [facility] [place] [address] documented as of this encounter Visit Diagnoses Not on filedocumented in this encounter Care Teams Petrologist Relationship Specialty Start Date End Date Naina Lindsey MD [address] [place] [address] [place] [address] PCP - General 03/19/10 08/25/16 documented as of this encounter
--- OUTSIDE RECORDS SUMMARY | 2023-11-09 18:20 | XMS_ITS | Encounter Summary ---
Author Organization [facility] [place] [address] Care Team Providers Care Machine Operations Supervisor Name Role Phone Naina Lindsey MD Primary Care Provider Reason for Visit * Reason Comments Spasms Encounter Details Date Type Department Care Team (Late st Contact Info) Description 11/20/2010 12:45 PM EDT Follow-[place] [phone] Christiano Floyd MD [facility] [place] [address] Spastic quadriplegia (Primary Dx) Discharge Disposition: Home Social [...] Sign Reading Time Taken Comments Blood Pressure 128/89 11/20/2010 1:27 PM EDT Pulse 112 11/20/2010 1:27 PM EDT Temperature - - Respiratory Rate - - Oxygen Saturation 100% 11/20/2010 1:27 PM EDT Inhaled Oxygen Concentration - - Weight 45.4 kg (100 lb) 11/20/2010 1:27 PM EDT Height 162.6 cm (5' 4) 11/20/2010 1:27 PM EDT Body Mass Index 17.16 11/20/2010 1:27 PM EDT Body Mass Index Percentile 3.89% 11/20/2010 1:2 7 PM EDT Growth Chart: [facility] (Girls, 2- 20 Years) documented in this encounter Progress Notes * Gaby Silva - 11/20/2010 3:00 PM EDT Pain Management Center Refill of Intrathecal Pump with Reprogramming Procedure Note Tana Robles Cavazos [id number] Date of Refill: 11/20/10 Primary Commutator Tester: Dr. Silva Geospatial Scientist: Dr. Floyd Reason for Reprogramming: Refill Diagnosis: Spasticity Pre-programming: Drug Concentration Daily Dose baclofen 1,000mcg/ml 248.3mcg/day Post-programming: Drug Concentration Daily Dose Brand (B) or Compound (C) Lot number Baclofen 1,000mcg/ml 218.1mcg/da Compound As above As above As above As above Pump Capacity: [] 20 ml [x] 40 ml Computer Predicted Residual Volume in Pump: [7.3 ml] Measured Residual volume in Pump: [8 ml] Medication or Dose Changes: [] Yes [x] No Is dose change > 30%? [] Yes [x] No Is concentration or drug different? [] Yes [x] No If concentrated or drug is different, has a bridge bolus been programmed? [] Yes [x] No Has any program been used other than simple continuous or bridge bolus and simple continuous? (] Yes [x] No Infusion Mode: [x] simple continuous [] complex continuous (flex) [] periodic bolus [] stopped Has reprogramming affected refill date and if so, has this been accommodated for? [x] Yes [] No New Pump Alarm Date: 05/08/2011 Procedure: Risks and expected side effects were reviewed with patient and her voiced concerns addressed. The printed consent form was signed and witnessed. Time Out was performed. The pump was accessed via telemetry and the computer predicted residual volume was noted as per above. Then betadine prep over the pump refill site was [...] no more or no less than 5mls. 39.5 ml of the solution was instilled into the pump according to the pens and pencils dipper's directions without difficulty. There was no evidence of over pressurization at the conclusion of the filling process. The Persaud needle was withdrawn and a bandaid was applied. The pump was then re-accessed via telemetry and reprogrammed to indicate the refill volume of 39.5 ml and any dose, concentration, or different drug used, as indicated above. The unused portion of the medication was discarded along with the old drug aspirated. Battery alarms reviewed and were appropriately enabled and in working order. Patient tolerated the procedure well and was discharged from the pain clinic. Follow-up appointments will be arranged for refills as appropriate. The pump daily dosage was decreased by 12% from 248 to 218 micrograms/day. The infusion mode was also changed from flex to simple continuous. We will continue to wean on the next visit. The patient is planning to have the pump removed during her next spine surgery as it is thought it is not needed for her LE spasm since her hip surgery . I was the attending physician supervising the resident in the above care and I was present with theresident for the entire procedure. documented in this encounter Miscellaneous Notes * Miscellaneous - Suzi Mandujano - 11/26/2010 9:17 AM EDT documented in this encounter Plan of Treatment Upcoming Encounters Date Type Department Care Team (Late st Contact Info) Description 11/19/2023 2:30 PM EDT TH Visit (TeleHealth) [place] [address] Lilli Joy APRN [facility] [place] [address] 11/30/2023 12:50 PM EDT [place] [address] 12/03/2023 12:30 PM EDT Office [place] [address] Hollie Ambriz MD [facility] [place] [address] documented as of this encounter Visit Diagnoses Diagnosis Spastic quadriplegia- Primary Quadriplegia, unspecified documented in this encounter Care Teams Machine Operations Supervisor Relationship Specialty Start Date End Date Naina Lindsey MD [address] [place] [address] [place] [address] PCP - General 03/19/10 08/25/16 documented as of this encounter
--- OUTSIDE RECORDS SUMMARY | 2023-11-09 18:20 | XMS_ITS | Encounter Summary ---
Author Organization [facility] [place] [address] Care Team Providers Care Commercial Artist Name Role Phone Naina Lindsey MD Primary Care Provider [phone] Reason for Visit * Reason Onset Date Comments Other 11/11/2010 WANTED NOTES FRO M SURG Encounter Details Date Type Department Care Team (Late st Contact Info) Description 11/11/2010 Telephone [place] [phone] Yas Ramirez MD [facility] [place] [address] Other (WANTED NOTES FROM SURG) Social History Tobacco Use Types Packs/Day Years Used Date Smoking Tobacco: Never Sex and Gender Information Value Date Recorded Sex Assigned at Not on file Gender Identity Not on file Sexual Orientation Not on file documented as of this encounter Miscellaneous Notes * Telephone Encounter - Candelaria Coronado - 11/11/2010 9:16 AM EDT SENT MOTHER OP NOTES REQUESTED BY ANNA LADD TO SEND. documented in this encounter Plan of Treatment Upcoming Encounters Date Type Department Care Team (Late st Contact Info) Description 11/19/2023 2:30 PM EDT TH Visit (TeleHealth) [place] [phone] Lilli Joy APRN [facility] [place] [address] 11/30/2023 12:50 PM EDT Appointment [place] [address] 12/03/2023 12:30 PM EDT Office Visit [place] [address] Hollie Ambriz MD [facility] [place] [address] documented as of this encounter Visit Diagnoses Not on filedocumented in this encounter Care Teams Commercial Artist Relationship Specialty Start Date End Date Naina Lindsey MD [address] [place] [address] [place] [address] PCP - General 03/19/10 08/25/16 documented as of this encounter
--- OUTSIDE RECORDS SUMMARY | 2023-11-09 18:20 | XMS_ITS | Encounter Summary ---
Author Organization [facility] Address [address] [place] [address] Care Team Providers Care Sleeping Car Porter Name Role Phone César Robert MD, Naina Primary Care Provider [phone] Reason for Visit * Reason Onset Date Comments Appointment Related 09/29/2019 Encounter Details Date Type Department Care Team (Late st Contact Info) Description 09/29/2019 Telephone [facility] Rehabilitation Therapy - [address] [id number] Therapy, Physical Appointment Related Social History Tobacco Use Types Packs/Day Years Used Date Smoking Tobacco: Never Assessed Sex and Gender Information Value Date Recorded Sex Assigned at Not on file Gender Identity Not on file Sexual Orientation Not on file documented as of this encounter Miscellaneous Notes * Telephone Encounter - Gretchen Dietz MA - 09/29/2019 1110 EDT Call placed to caregiver confirming that the upcoming wheelchair appointments on 10/25 & 11/01 hereat RTC for 1:15 have been secured with Candelaria Jaquez PT, DPT and Ramin Samuel ATP from [employer]. She confirmed their availability for this date/time. Gretchen Dietz MA 09/29/2019 11:11 documented in this encounter Plan of Treatment Not on file documented as of this encounter Visit Diagnoses Not on filedocumented in this encounter Care Teams Sleeping Car Porter Relationship Specialty Start Date End Date Naina Lindsey MD [address] [place] [address] PCP - General 02/13/15 documented as of this encounter
--- OUTSIDE RECORDS SUMMARY | 2023-11-09 18:20 | XMS_ITS | Encounter Summary ---
Author Organization [facility] [place] [address] Care Team Providers Care Otr Van Cdl Truck Driver Name Role Phone Naina Lindsey MD Primary Care Provider [phone] Encounter Details Date Type Department Care Team (Late st Contact Info) Description 11/18/2010 Abstract [place] [address] Jessica López, RN Social History Tobacco Use Types Packs/Day [...] EDT TH Visit (TeleHealth) [place] [address] Lilli Joy, [place] [address] 11/30/2023 12:50 PM EDT Appointment [place] [address] 12/03/2023 12:30 PM EDT Office Visit [place] [address] Hollie Ambriz MD [facility] [address] documented as of this encounter Visit Diagnoses Not on filedocumented in this encounter Care Teams Otr Van Cdl Truck Driver Relationship Specialty Start Date End Date Naina Lindsey MD [address] [place] [address] [place] [address] PCP - General 03/19/10 08/25/16 documented as of this encounter
--- OUTSIDE RECORDS SUMMARY | 2023-11-09 18:20 | XMS_ITS | Encounter Summary ---
Author Organization [facility] [place] [address] Care Team Providers Care College Associate Name Role Phone Naina Lindsey MD Primary Care Provider [phone] Encounter Details Date Type Department Care Team (Late st Contact Info) Description 06/12/2010 9:30 AM EST [place] [address] Yas Ramirez MD [facility] [place] [address] Discharge Disposition: Home Social History Tobacco Use [...] EDT TH Visit (TeleHealth) [place] [address] Lilli Joy APRN [facility] [place] [address] 11/30/2023 12:50 PM EDT [place] [address] 12/03/2023 12:30 PM EDT Office [place] [phone] Hollie Ambriz MD [facility] [place] [address] documented as of this encounter Visit Diagnoses Not on filedocumented in this encounter Care Teams College Associate Relationship Specialty Start Date End Date Naina Lindsey MD [address] [place] [address] PCP - General 03/19/10 08/25/16 documented as of this encounter
--- OUTSIDE RECORDS SUMMARY | 2023-11-09 18:20 | XMS_ITS | Encounter Summary ---
Author Organization [facility] [place] [address] Care Team Providers Care Culinary Artist Name Role Phone Naina Lindsey MD Primary Care Provider [phone] Encounter Details Date Type Department Care Team (Late st Contact Info) Description 09/27/2010 Orders [place] [address] Yas Ramirez MD [facility] ORTHOPAEDIC [place] [address] Muscle spasticity; Acquired dysplasia of hip, bilateral; Traumatic brain [...] EDT TH Visit (TeleHealth) [place] [address] Lilli Joy APRN 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
--- OUTSIDE RECORDS SUMMARY | 2023-11-09 18:20 | XMS_ITS | Encounter Summary ---
Author Organization [facility] Address [facility] [place] [address] Care Team Providers Care Compliance Examiner Name Role Phone Naina Lindsey MD Primary Care Provider [phone] Encounter Details Date Type Department Care Team (Late st Contact Info) Description 08/13/2010 [place] [address] Yas Ramirez MD [facility] [place] [address] Social History Tobacco Use Types Packs/Day Years [...] - Inhaled Oxygen Concentration - - Weight 34.9 kg (77 lb) 08/13/2010 7:56 AM EDT Height - - Body Mass Index - - documented in this encounter Plan of Treatment Upcoming Encounters Date Type Department Care Team (Late st Contact Info) Description 11/19/2023 2:30 PM EDT TH Visit (TeleHealth) [place] [address] Lilli Joy [place] [address] 11/30/2023 12:50 PM EDT [place] [address] 12/03/2023 12:30 PM EDT Office [place] [address] Hollie Ambriz MD [facility] [place] [address] documented as of this encounter Visit Diagnoses Not on filedocumented in this encounter Care Teams Compliance Examiner Relationship Specialty Start Date End Date Naina Lindsey MD [address] [place] [address] [place] [address] PCP - General 03/19/10 08/25/16 documented as of this encounter
--- OUTSIDE RECORDS SUMMARY | 2023-11-09 18:20 | XMS_ITS | Encounter Summary ---
Author Organization [facility] Address [address] [place] [address] Care Team Providers Care Cork Floor Installer Name Role Phone César Robert MD, Naina Primary Care Provider [phone] Encounter Details Date Type Department Care Team (Late st Contact Info) Description 07/01/2023 Lab Requisition [facility] Pathology & Laboratory Medicine - [address] [address] Outr Resulting Lab, Provider Social History Tobacco [...] Procedure Name Priority Date/Time Associated Diagnosis Comments IGA Routine 07/01/2023 10:52 EST IGG Routine 07/01/2023 10:52 EST documented in this encounter Results * IGA (07/01/2023 10:52 EST) IgA 284 85 - 499 mg/dL 07/02/2023 11:39 EST [facility] Blood VENOUS BLOOD / Unknown 07/01/2023 10:52 EST 07/01/2023 21:19 EST Provider Outr Resulting Lab CHEMISTRY & BLOOD GAS ORDERABLES Performing Organization Address [facility] Co de Phone Number [facility] [address] [place] [address] * (ABNORMAL) IGG (07/01/2023 10:52 EST) IgG 1,631(H) 610 - 1,616 mg/dL 07/02/2023 11:39 EST [facility] Blood VENOUS BLOOD / Unknown 07/01/2023 10:52 EST 07/01/2023 21:19 EST Provider Outr Resulting Lab CHEMISTRY & BLOOD GAS ORDERABLES Performing Organization Address [facility] Co de Phone Number [facility] [address] [place], [place] [phone] documented in this encounter Visit Diagnoses Not on filedocumented in this encounter Care Teams Cork Floor Installer Relationship Specialty Start Date End Date Naina Lindsey MD [address] [place] [address] PCP - General 02/13/15 documented as of this encounter
--- OUTSIDE RECORDS SUMMARY | 2023-11-09 18:20 | XMS_ITS | Encounter Summary ---
Author Organization [facility] Address [address] [place] [address] Care Team Providers Care Records Management Clerk Name Role Phone César Robert MD, Naina Primary Care Provider [phone] Encounter Details Date Type Department Care Team (Late st Contact Info) Description 04/02/2021 Lab Requisition [facility] Pathology & Laboratory Medicine - [address] [address] Outr Resulting Lab, Provider Social History Tobacco [...] Procedure Name Priority Date/Time Associated Diagnosis Comments ZZCOVID-19 TEST [facility] PCR Today 04/02/2021 10:55 EST COVID-19 TESTING Routine 04/02/2021 10:5 5 EST documented in this encounter Results * COVID-19 TEST [facility] PCR (04/02/2021 10:55 EST) Swab 04/02/2021 10:5 5 EST 04/02/2021 22:22 EST Provider Outr Resulting Lab MICROBIOLOGY - GENERAL ORDERABLES [facility] [address] [place] [address] * COVID-19 TESTING (04/02/2021 10:55 EST) COVID-19 rt-PCR Result Negative Negative 04/03/2021 14:17 EST [facility] Comment: This test has not been FDA cleared or approved. This test has been authorized by FDA under an EUA for use by authorized laboratories. This test has been authorized only for detection of nucleic acid from 2019-nCoV, not for any other viruses or pathogens. This test is only authorized for the duration of the declaration that circumstances exist justifying the authorization of emergency use of in vitro diagnostic tests for detection and/or diagnosis of 2019-nCoV under section 564(b)(1) of Act, 21 U.S.C ?? 360bbb-3(b) (1), unless the authorization is terminated or revoked sooner. Negative results do not preclude 2019-nCoV infection and should not be used as the sole basis for treatment or other patient management decisions. Negative results must be combined with clinical observations, patient history, and epidemiological information. Testing was performed using the eve SARS-CoV-2 assay ([employer] on the Eve 6800 System Performing Lab Eve [address] [facility] Lab 04/03/2021 14:17 EST [facility] Swab 04/02/2021 10:5 5 EST 04/02/2021 22:22 EST Provider Outr Resulting Lab MICROBIOLOGY - GENERAL ORDERABLES [facility] [address] [place] [address] documented in this encounter Visit Diagnoses Not on filedocumented in this encounter Care Teams Records Management Clerk Relationship Specialty Start Date End Date Naina Lindsey MD [address] [place] [address] [place] [address] PCP - General 02/13/15 documented as of this encounter
--- OUTSIDE RECORDS SUMMARY | 2023-11-09 18:20 | XMS_ITS | Encounter Summary ---
Author Organization [facility] [place] [address] Care Team Providers Care Customer Service Supervisor Name Role Phone Naina Lindsey MD Primary Care Provider [phone] Encounter Details Date Type Department Care Team (Late st Contact Info) Description 11/04/2010 4:00 PM EDT Office Visit [place] [address] Gloria López, RVT Acquired dysplasia of hip, bilateral; Edema leg Social History Tobacco Use Types Packs/Day Years [...] (TeleHealth) [place] [address] Lilli Joy, [place] [facility] [place] [address] 11/30/2023 12:50 PM EDT Appointment [place] [address] 12/03/2023 12:30 PM EDT Office Visit [place] [address] Hollie Ambriz MD [facility] INFECTIOUS [place] [address] documented as of this encounter Procedures Procedure Name Priority Date/Time Associated Diagnosis Comments DUPLEX FOR DVT, LEG, UNILAT Routine 11/04/2010 3:55 PM EDT Acquired dysplasia of hip, bilateral Edema leg documented in this encounter Results * Duplex for DVT, Leg, Unilat (11/04/2010 3:55 PM EDT) VB Text Report Department: Vascular Surgery Lab Patient: [id number] (TANA SHELTON) CPT Code: 06706 ICD-9: 729.81 Referring Physician: YAS OLIVER Indication: ?? RIGHT thigh swelling s/p girdlestone procedure. Patient non-mobile with muscle spasticity secondary to traumatic brain injury. ICD9 Diagnosis Code: 729.81 RIGHT: Absence of femoral vein in the very distal thigh segment; ? long standing venous thrombosis with reconstitution vs venous abnormality. Patent common femoral vein with spontaneous, respirophasic Doppler waveforms that respond normally to augmentation maneuvers. Patent popliteal vein with minimal spontaneous flow and poor augmentation. The common femoral vein, saphenofemoral junction, femoral vein through to distal thigh and the popliteal vein are fully compressible. Only one pair of calf veins were visualized and are patent. Interpretation: RIGHT: No DVT identified; cannot exclude calf vein thrombus. Absence of femoral vein in the very distal thigh segment; ? long standing venous thrombosis with reconstitution vs venous abnormality. Signed by JAKOB BRADLEY on 2010-11-07 04:19:57 PM [facility] VB Text Report End of Report [facility] 11/04/2010 3:55 PM EDT Yas Oliver MD VASCULAR ORDERABLES [facility] documented in this encounter Visit Diagnoses Diagnosis Acquired dysplasia of hip, bilateral Other acquired deformities of hip Edema leg Edema documented in this encounter Care Teams Customer Service Supervisor Relationship Specialty Start Date End Date Naina Lindsey MD [address] [place] [address] [place] [address] PCP - General 03/19/10 08/25/16 documented as of this encounter
--- OUTSIDE RECORDS SUMMARY | 2023-11-09 18:20 | XMS_ITS | Encounter Summary ---
Author Organization [facility] Address 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 Mother thinks at least on previous discussions that if we were to proceed with that perhaps in the fall or winter. We have also in the past discussed the removal of her baclofen pump around that potential intervention. Most recently, Tana has undergone bilateral proximal femoral resection for residual painful hips after attempted reconstruction. Additionally, she had a distal femoral osteotomy on the right because of substantial knee flexion contracture despite hamstring lengthening and proximal femoral resection. She had her cast removed a few weeks back. She has done reasonably well. She does require some Motrin for discomfort on most days, but is able to be cared for and mobilized without significant discomfort. Mother called several days back because of concerns of right lower extremity swelling that extends from thigh down to foot. It fluctuates a little bit during the day improving with some elevation and that has remained fairly swollen. Tana does not seem to be particularly more uncomfortable right side to left nor has her symptoms of discomfort worsened since the notation of the swelling. PHYSICAL EXAMINATION: On examination today, Tana is seen in her wheelchair. She is in a reclined fashion with legs elevated. Pillows are used to prop her lower extremities comfortably. Right lower extremity seems to have a meaningful amount of swelling, which is fairly universally distributed from her thigh down to foot. There is no obvious discoloration around the right lower extremity. There is some mild increased warmth about the knee, but no specific erythema. She is not overtly tender to palpation, and thereis reasonable arc of motion through both hips without obvious discomfort. We did obtain a Doppler ultrasound of the right lower extremity to rule out potential DVT. There was no evidence of DVT in the proximal thigh. There was some notation of femoral vein change distally at the femur, although things will be constituted in a cast and explosive technician with whom I spoke did not feel it was consistent with DVT. PLAN: Discussed with mom continued symptomatic treatments and monitoring. Plan will be to see Tana back in eight weeks or so for a recheck. No x-rays are needed. At that time, we can clearly discuss with mom the potential for revision spinal surgery should mom feel the symptoms warrant. documented in this encounter Plan of Treatment Upcoming Encounters Date Type Department Care Team (Late st Contact Info) Description 11/19/2023 2:30 PM EDT TH Visit (TeleHealth) [place] [address] Lilli Joy APRN [facility] [place] [address] 11/30/2023 12:50 PM EDT [place] [address] 12/03/2023 12:30 PM EDT Office [place] [address] Hollie Ambriz MD [facility] [place] [address] documented as of this encounter Results * Duplex for DVT, Leg, Unilat (11/04/2010 3:55 PM EDT) VB Text Report Department: Vascular Surgery Lab Patient: [id number] (TANA SHELTON) CPT Code: 22413 ICD-9: 729.81 Referring Physician: BARRERA OLIVER Indication: ?? 

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
--- OUTSIDE RECORDS SUMMARY | 2023-11-09 18:20 | XMS_ITS | Encounter Summary ---
Author Organization [facility] Address [address] [place] [address] Care Team Providers Care Crop Duster Name Role Phone César Robert MD, Naina Primary Care Provider [phone] Reason for Visit * Reason Onset Date Comments Appointment Related 10/31/2019 Encounter Details Date Type Department Care Team (Late st Contact Info) Description 10/31/2019 Telephone [facility] Therapy - [address] [address] Therapy, Physical Appointment Related Social History Tobacco Use Types Packs/Day Years Used Date Smoking Tobacco: Never Assessed Sex and Gender Information Value Date Recorded Sex Assigned at Not on file Gender Identity Not on file Sexual Orientation Not on file documented as of this encounter Miscellaneous Notes * Telephone Encounter - Gretchen Dietz MA - 10/31/2019 1441 EDT I spoke with the patients caregiver and reminded them of their wheelchair clinic appointment, to occur in two business days time at [facility].. Gretchen Dietz MA 10/31/2019 14:41 documented in this encounter Plan of Treatment Not on file documented as of this encounter Visit Diagnoses Not on filedocumented in this encounter Care Teams Crop Duster Relationship Specialty Start Date End Date Naina Lindsey MD [address] [place] [address] PCP - General 02/13/15 documented as of this encounter
--- OUTSIDE RECORDS SUMMARY | 2023-11-09 18:20 | XMS_ITS | Encounter Summary ---
Author Organization [facility] Address [address] [place] [address] Care Team Providers Care Photoengraving Sketch Maker Name Role Phone César Robert MD, Naina Primary Care Provider [phone] Encounter Details Date Type Department Care Team (Late st Contact Info) Description 07/01/2023 Lab Requisition [facility] Pathology & Laboratory Medicine - [address] [id number] Outr Resulting Lab, Provider Social History Tobacco [...] Procedure Name Priority Date/Time Associated Diagnosis Comments TISSUE TRANSGLUTAMINASE ANTIBODY, IGA Routine 07/01/2023 10:52 EST documented in this encounter Results * TISSUE TRANSGLUTAMINASE ANTIBODY, IGA (07/01/2023 10:52 EST) Tissue Transglutaminase Antibody, IgA <4.0 <20.0 CU 07/02/2023 10:22 EST [facility] Comment: Negative: <20.0 CU Weak Positive: 20.0-30.0 CU Positive: >30.0 CU Results were obtained with the Spot[employer]anks[employer] Flash h-tTG IgA chemiluminescent immunoassay. Values obtained with different manufacturers' assay methods may not be used interchangeably. Blood VENOUS BLOOD / Unknown 07/01/2023 10:52 EST 07/01/2023 21:12 EST Provider Outr Resulting Lab IMMUNOLOGY A ND SEROLOGY ORDERABLES Performing Organization Address City/State/[facility] Co de Phone Number [facility] [address] [place], [place] [id number] documented in this encounter Visit Diagnoses Not on filedocumented in this encounter Care Teams Photoengraving Sketch Maker Relationship Specialty Start Date End Date Naina Lindsey MD [address] [place] [place] [address] PCP - General 02/13/15 documented as of this encounter
--- OUTSIDE RECORDS SUMMARY | 2023-11-09 18:20 | XMS_ITS | Referral Summary ---
Author Organization [facility] Address [address] [place] [address] Care Team Providers Care Computer Specialist Name Role Phone César Robert MD, Naina Primary Care Provider [phone] Medications Medication Sig Dispensed Refills Start Date End Date Status baclofen (LIORESAL) 10 mg tablet Take 10 mg by mouth Act mirian UNABLE TO FIND Med Name: control pill to control menses Active nystatin (MYCOSTATIN) powder Apply topically 2 times daily. Active polyethylene glycol 3350 (MIRALAX) 17 gram packet Take 17 g by mouth daily. Active clotrimazole-betameth asone (LOTRISONE) cream Apply topically to affected area 2 times daily. Active capsaicin (ZOSTRIX) 0.025 % topical creamIndications:hip and knee pain Apply topically 3 times daily. Active FA/mv,Ca,iron,min/lyc opene/lut (MULTIVITAL ORAL) Take by mouth. Active Active Problems Patient Care Coordination No te Formatting of this note migh t be different from the original. 05/06/2019 To schedule or cancel appointments, call [facility]: [phone]. No additional problems on file Social History Tobacco Use Types Packs/Day Years Used Date Smoking Tobacco: Never Assessed Interpersonal Safety Answer Date Record ed Physically Hurt Never 11/27/2019 Verbally Threaten Not on file 11/27/2019 Sex and Gender Information Value Date Recorded Sex Assigned at Not on file Gender Identity Not on file Sexual Orientation Not on file Plan of Treatment Not on file Care Teams Computer Specialist Relationship Specialty Start Date End Date Naina Lindsey MD [address] [place] [address] PCP - General 02/13/15
--- OUTSIDE RECORDS SUMMARY | 2023-11-09 18:20 | XMS_ITS | Encounter Summary ---
Author Organization [facility] Address [facility] [place] [address] Care Team Providers Care Graphics Specialist Name Role Phone Naina Lindsey MD Primary Care Provider [phone] Encounter Details Date Type Department Care Team (Late st Contact Info) Description 06/12/2010 9:00 AM EST Procedure visit [address] [address] Social History Tobacco Use Types Packs/Day Years [...] EDT TH Visit (TeleHealth) [place] [address] Lilli Joy, FRICTION PAINT MACHINE TENDER [facility] [place] [address] 11/30/2023 12:50 PM EDT [place] [address] 12/03/2023 12:30 PM EDT Office [place] [address] Hollie Ambriz MD [facility] [place] [address] documented as of this encounter Visit Diagnoses Not on filedocumented in this encounter Care Teams Graphics Specialist Relationship Specialty Start Date End Date Naina Lindsey MD [address] [place] [address] [place] [address] PCP - General 03/19/10 08/25/16 documented as of this encounter
--- OUTSIDE RECORDS SUMMARY | 2023-11-09 18:20 | XMS_ITS | Encounter Summary ---
Author Organization [facility] [place] [address] Care Team Providers Care Blackjack Pit Boss Name Role Phone Naina Lindsey MD Primary Care Provider Reason for Referral * Occupational Therapy (Routine) - Complete - Patient Will Schedule External Appt Specialty Diagnoses / Procedures Referred By Contac t Referred To Contact Occupational Therapy Diagnoses Acquired dysplasia of hip Scoliosis Traumatic brain injury Yas Ramirez MD [facility] [place] [address] Referral ID Status Reason Start Date Expiration Date Visits Requested Visits Authorized [id number] Complete - Patient Will Schedule External Appt Evaluate and Treat 01/02/2011 07/01/2011 1 1 * Physical Therapy (Routine) - Complete - Patient Will Schedule External Appt Specialty Diagnoses / Procedures Referred By Contac t Referred To Contact Physical Therapy Diagnoses Acquired dysplasia of hip Scoliosis Traumatic brain injury Yas Ramirez MD [facility] [place] [address] Referral ID Status Reason Start Date Expiration Date Visits Requested Visits Authorized [id number] Complete - Patient Will Schedule External Appt Evaluate and Treat 01/02/2011 07/01/2011 1 1 Encounter Details Date Type Department Care Team (Late st Contact Info) Description 01/02/2011 Orders Only Orthopaedics at [place] [address] Yas Ramirez MD [facility] [place] [address] Acquired dysplasia of hip, bilateral; Scoliosis; Traumatic [...] EDT TH Visit (TeleHealth) Infectious Disease at [place] [address] iLlli Joy APRN [facility] [place] [id number] 11/30/2023 12:50 PM EDT Appointment Radiology at [place] [address] 12/03/2023 12:30 PM EDT Office Visit Infectious Disease at [address] Hollie Ambriz MD [facility] [place] [address] Scheduled Referrals Name Type Priority Associated Diagnoses Orde r Schedule REFERRAL TO PHYSICAL THERAPY Outpatient Referral Routine Acquired dysplasia of hip, bilateral Scoliosis 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 Ordered: 01/02/2011 REFERRAL TO OCCUPATIONAL THERAPY Outpatient Referral Routine Acquired dysplasia of hip, bilateral Scoliosis 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 Ordered: 01/02/2011 documented as of this encounter Visit Diagnoses Diagnosis Acquired dysplasia of hip, bilateral Other acquired deformities of hip Scoliosis Scoliosis (and kyphoscoliosis), idiopathic 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
--- OUTSIDE RECORDS SUMMARY | 2023-11-09 18:20 | XMS_ITS | Encounter Summary ---
Author Organization [facility] Address [facility] [place] [address] Care Team Providers Care Mercury Recoverer Name Role Phone Naina Lindsey MD Primary Care Provider [phone] Encounter Details Date Type Department Care Team (Latest Contact Info) Description 09/24/2010 1:20 PM EDT - 09/24/2010 11:59 PM EDT Hospital Encounter XRay at [address] [place] [address] Muscle spasticity Social History Tobacco Use Types Packs/Day Years Used Date Smoking Tobacco: Never Sex and Gender Information Value Date Recorded Sex Assigned at Not on file Gender Identity Not on file Sexual Orientation Not on file documented as of this encounter Medications at Time of Discharge Medication Sig Dispensed Refills Start Date End Date tiZANidine (ZANAFLEX) 2 mg tabletIndications:mus patti spasm Take 1 tablet by mouth every 6 hours as needed. Indications: Muscle Spasm 30 tablet 1 09/05/2010 09/27/2010 OXYcodone (ROXICODONE) 5 mg immediate release tablet [...] EDT TH Visit (TeleHealth) [place] [address] Lilli Joy [place]N [facility] [place] [address] 11/30/2023 12:50 PM EDT Appointment [place] [address] 12/03/2023 12:30 PM EDT Office Visit [place] [address] Hollie Ambriz MD [facility] [place] [address] documented as of this encounter Procedures Procedure Name Priority Date/Time Associated Diagnosis Comments XR PELVIS Routine 09/24/2010 2:08 PM EDT documented in this encounter Results * XR PELVIS 1 OR 2 VIEWS (09/24/2010 2:08 PM EDT) Anatomical Region Laterality Modality Pelvis N/A Radiographic Becca ging 09/24/2010 2:08 PM EDT Impressions 09/25/2010 8:59 AM EDT IMPRESSION: ?? Interval resection of bilateral proximal femora. Narrative 09/25/2010 8:59 AM EDT AP PELVIS: ?? HISTORY: ??Bilateral proximal femoral resection. ?? FINDINGS: ??Both proximal femora are surgically absent. ??The resected bone ends are well circumscribed without destruction. ??Spinal rods overlie the lower lumbar spine and pelvis. ??There is electrical stimulator overlying the right pelvis. ?? Procedure Note Marci Bee MD - 09/25/2010 AP PELVIS: HISTORY: Bilateral proximal femoral resection. FINDINGS: Both proximal femora are surgically absent. The resected boneends are well circumscribed without destruction. Spinal rods overlie the lower lumbar spine and pelvis. There is electrical stimulator overlying theright pelvis. IMPRESSION IMPRESSION: Interval resection of bilateral proximal femora. Yas Ramirez MD IMG DX ORDERABLES documented in this encounter Visit Diagnoses Diagnosis Muscle spasticity Spasm of muscle documented in this encounter Care Teams Mercury Recoverer Relationship Specialty Start Date End Date Naina Lindsey MD [address] [place] [address] PCP - General 03/19/10 08/25/16 documented as of this encounter
--- OUTSIDE RECORDS SUMMARY | 2023-11-09 18:20 | XMS_ITS | Encounter Summary ---
Author Organization [facility] [place] [address] Care Team Providers Care Plan Consultant Name Role Phone Naina Lindsey MD Primary Care Provider [phone] Encounter Details Date Type Department Care Team (Late st Contact Info) Description 08/19/2010 Orders [place] [address] Lucho Fields MD [facility] [place] [address] Social History Tobacco Use Types Packs/Day Years [...] EDT TH Visit (TeleHealth) [place] [address] Lilli Joy APRN [facility] [place] [address] 11/30/2023 12:50 PM ED[place] [address] 12/03/2023 12:30 PM EDT Office [place] [address] Hollie Ambriz MD [facility] [place] [address] documented as of this encounter Visit Diagnoses Not on filedocumented in this encounter Care Teams Plan Consultant Relationship Specialty Start Date End Date Naina Lindsey MD [address] [place] [address] [place] [address] PCP - General 03/19/10 08/25/16 documented as of this encounter
--- OUTSIDE RECORDS SUMMARY | 2023-11-09 18:20 | XMS_ITS | Encounter Summary ---
Author Organization [facility] [place] [address] Care Team Providers Care Container Washer Name Role Phone Naian Lindsey MD Primary Care Provider [phone] Reason for Visit * Reason Comments Cerebral Palsy Encounter Details Date Type Department Care Team (Late st Contact Info) Description 09/05/2010 1:00 PM EDT Office [place] [phone] CLINIC, [address] [place] Muscle spasticity (Primary Dx) Discharge Disposition: Home Social History Tobacco Use Types Packs/Day Years Used Date Smoking Tobacco: Never Sex and Gender Information Value Date Recorded Sex Assigned at Not on file Gender Identity Not on file Sexual Orientation Not on file documented as of this encounter Progress Notes * Zander Hi PA - 09/05/2010 1:33 PM EDT Subjective: Patient ID: Tana Cavazos is a 15 y.o. female. HPI Comments: Procedure: Bilateral proximal femoral resection, removal retained fixation, right distal femoral supracondylar osteotomy. DOS: 08-16-2010 This is a pleasant 15 yo here with her mother and brother following up after the above surgery. Shehas underlying spasticity secondary to a TBI. Since surgery she seem sto be resting comfortably. Occasional muscle spasms which are well controlled with Tizinidine. She is in a bilateral hip spica cast. They are managing well with this. Mom has questions about the time frame for the cast. As well as what to expect moving forward. Otherwise no concerns. Review of Systems Constitutional: Negative. Musculoskeletal: Negative. Objective: Physical Exam Constitutional: She is well-developed, well-nourished, and in no distress. Skin: Skin is warm and dry. Left Hip Exam Comments: WNWD, spica cast in place and in good condition. Posterior aspect is slightly soiled but skin is w/d without lesions adjacent to that area. Has normal sensation to her toes. Cap refill wnl. Neurologic Exam Assessment and Plan: A: Stable exam s/p the above surgery. P: I talked at length with mom in the office today. I reassured her that things appear to be going quite well. The cast is holding up well. There is no need to make any changes at this time. We wouldlike to see them back in 2-3 weeks with XR prior. And may consider cast removal at that time. documented in this encounter Plan of Treatment Upcoming Encounters Date Type Department Care Team (Late st Contact Info) Description 11/19/2023 2:30 PM EDT TH Visit (TeleHealth) [place] [address] Lilli Joy [place] [address] 11/30/2023 12:50 PM EDT [place] [address] 12/03/2023 12:30 PM EDT Office [place] [address] Hollie Ambriz MD [facility] [place] [address] documented as of this encounter Visit Diagnoses Diagnosis Muscle spasticity- Primary Spasm of muscle documented in this encounter Care Teams Container Washer Relationship Specialty Start Date End Date Naina Lindsey MD [address] [place] [address] PCP - General 03/19/10 08/25/16 documented as of this encounter
--- OUTSIDE RECORDS SUMMARY | 2023-11-09 18:20 | XMS_ITS | Clinical Summary ---
Author Organization [facility] Address [address] [place] [address] Care Team Providers Care Truck Crane Operator Name Role Phone César Robert MD, Naina Primary Care Provider [phone] Medications Medication Sig Dispensed Refills Start Date [...] 05/06/2019 To schedule or cancel appointments, call [facility] providers [facility]: [phone]. No additional problems on file Surgical History Surgery Date Site/Laterality Comments SPINAL FUSION 04/27/2010 - 04/26/2011 OSTEOTOMY 04/27/2008 - 04/26/2009 Bilateral both hips BACLOFEN PUMP IMPLANTATION removed April 2014 HIP SURGERY 04/27/2011 - 04/26/2012 hip resections, [place] procedures TENDON RELEASE 04/27/2012 - 04/26/2013 Right wrist with relocation Medical History Medical History Date Comments Traumatic brain injury (HCC-CMS) age 16 months Neuromuscular scoliosis of thoracolumbar region Contracture, joint, multiple sites Seizure (HCC-CMS) resolved in in fancy Social History Tobacco Use Types Packs/Day Years Used Date Smoking Tobacco: Never Assessed Interpersonal Safety Answer Date Record ed Physically Hurt Never 11/27/2019 Verbally Threaten Not on file 11/27/2019 Sex and Gender Information Value Date Recorded Sex Assigned at Not on file Gender Identity Not on file Sexual Orientation Not on file Obstetrics History Plan of Treatment Health Maintenance Due Date Last Done Comments Hepatitis C Screen 1993 Hepatitis B Vaccine (1 of 3 - 19+ 3-dose series) 06/18 COVID-19 Vaccine ( season) 2022 Care Teams Truck Crane Operator Relationship Specialty Start Date End Date Naina Lindsey MD [address] [place] [address] PCP - General 02/13/15
--- OUTSIDE RECORDS SUMMARY | 2023-11-09 18:20 | XMS_ITS | Encounter Summary ---
Author Organization [facility] [place] [address] Care Team Providers Care Dry Boss Name Role Phone Naina Lindsey MD Primary Care Provider [phone] Encounter Details Date Type Department Care Team (Late st Contact Info) Description 08/13/2010 Orders [place] [address] Yas Ramirez MD [facility] [place] [address] DDH (developmental dysplasia of the hip) (Primary Dx) Social History Tobacco Use Types [...] EDT TH Visit (TeleHealth) [place] [address] Lilli Joy APRN [facility] [place] [address] 11/30/2023 12:50 PM EDT [place] [address] 12/03/2023 12:30 PM EDT Office [place] [address] Hollie Ambriz MD [facility] [place] [address] documented as of this encounter Visit Diagnoses Diagnosis DDH (developmental dysplasia of the hip)- Primary Other congenital deformity of hip (joint) documented in this encounter Care Teams Dry Boss Relationship Specialty Start Date End Date Naina Lindsey MD [address] [place] [address] PCP - General 03/19/10 08/25/16 documented as of this encounter
--- OUTSIDE RECORDS SUMMARY | 2023-11-09 18:20 | XMS_ITS | Encounter Summary ---
Author Organization [facility] [place] [address] Care Team Providers Care Rn Oncology Name Role Phone Naina Lindsey MD Primary Care Provider [phone] Encounter Details Date Type Department Care Team (Late st Contact Info) Description 11/07/2010 Orders [place] [address] Bigg Dunbar MD [facility] [place] [place] [address] Spasticity (Primary Dx) Social History Tobacco Use [...] EDT TH Visit (TeleHealth) [place] [address] [facility] [place] [address] 11/30/2023 12:50 PM EDT [place] [address] 12/03/2023 12:30 PM EDT Office [place] [address] Hollie Ambriz MD [facility] [place] [address] documented as of this encounter Visit Diagnoses Diagnosis Spasticity- Primary Abnormal involuntary movements documented in this encounter Care Teams Rn Oncology Relationship Specialty Start Date End Date Naina Lindsey MD [address] [place] [address] PCP - General 03/19/10 08/25/16 documented as of this encounter
--- OUTSIDE RECORDS SUMMARY | 2023-11-09 18:21 | XMS_ITS | Encounter Summary ---
Author Organization [facility] Address [address] [place] [address] Care Team Providers Care Liability Claims Manager Name Role Phone César Robert MD, Naina Primary Care Provider [phone] Reason for Visit * Reason Onset Date Comments Appointment Related 05/14/2015 Encounter Details Date Type Department Care Team (Late st Contact Info) Description 05/14/2015 Telephone [facility] [place] Rehabilitation Therapy - [address] [id number] Therapy, Outpatient, Appointment Related Social History Tobacco Use Types Packs/Day Years Used Date Smoking Tobacco: Never Assessed Sex and Gender Information Value Date Recorded Sex Assigned at Not on file Gender Identity Not on file Sexual Orientation Not on file documented as of this encounter Miscellaneous Notes * Telephone Encounter - Mile Ronquillo - 05/14/2015 1405 EST Patient has been scheduled for a follow up appointment on 05/29/15 @ 2:30 - vendor has confirmed availability. 3rd follow up appointment has been scheduled for 07/09 @ 12:30 - pending vendor availability. (if still necessary after 05/29 appointment) documented in this encounter Plan of Treatment Not on file documented as of this encounter Visit Diagnoses Not on filedocumented in this encounter Care Teams Liability Claims Manager Relationship Specialty Start Date End Date Naina Lindsey [place] [address] PCP - General 02/13/15 documented as of this encounter
--- OUTSIDE RECORDS SUMMARY | 2023-11-09 18:21 | XMS_ITS | Encounter Summary ---
Author Organization [facility] Address [address] [place] [address] Care Team Providers Care Is Analyst Name Role Phone César Robert MD, Naina Primary Care Provider + [phone] Encounter Details Date Type Department Care Team (Late st Contact Info) Description 08/24/2018 Results Only [facility] [phone] Raul Mak MD [address] [place] [address] Social History Tobacco Use Types Packs/Day Years Used Date Smoking Tobacco: Never Assessed Sex and Gender Information Value Date Recorded Sex Assigned at Not on file Gender Identity Not on file Sexual Orientation Not on file documented as of this encounter Plan of Treatment Not on file documented as of this encounter Procedures Procedure Name Priority Date/Time Associated Diagnosis Comments SURGICAL PATHOLOGY Routine 08/24/2018 11 :45 EDT documented in this encounter Results * SURGICAL PATHOLOGY (08/24/2018 11:45 EDT) Pathology Report: SURGICAL PATHOLOGY REPORT Reports generated via electronic interface contain original data; however they are lacking the format of the original report. Caution should be taken when reading/interpreti ng unformatted reports. Name: ? JOHN SHELTONArthur Hayes ? Accession #: ? [id number] ? : ? 1995 (Age: 23) ??F ? Collect Date: ? 08/24/2018 ? Location: ? [facility] ? Receive Date: ? 08/25/2018 ? Provider: RAUL MAK MD Copy to: [facility] ? Final Pathologic Diagnosis: UTERUS AND FALLOPIAN TUBES, HYSTERECTOMY AND BILATERAL SALPINGECTOMY: - ??Cervix: - ??Cystically dilated endocervical glands (nabothian cysts), bilateral. - ??Endometrium: ? - ??Proliferative endometrium. ?? - ??Myometrium: ? - ??No specific histopathologic features. - ??Uterine serosa: ? - ??No specific histopathologic features. - ??Fallopian tubes: ? - ??Paratubal cyst, right. Document reviewed and electronically signed by: Pretty France MD Report ??Date: 08/31/2018 06:08 By the signature above, the attending physician certifies that he/she has personally conducted a gross and/or microscopic examination of the described specimens and rendered or confirmed the above diagnosis. Specimen(s) Received: Uterus, bilateral fallopian tubes Clinical History: Dysmenorrhea, abnormal uterine bleeding, history of endometrial ablation; clinical diagnosis code: N94.6, N93.9, Z98.890 Gross Description: ?Received in normal saline labelled with proper patient identification (initials B, K) and uterus, bilateral fallopian tubes is an intact uterus and cervix (44 g, 8.5 cm cervix to fundus x 3.5 cm cornu to cornu x 2.2 cm anterior to posterior) with attached right fimbriated and detached left fallopian tubes (left: 5.1 cm in length x 0.3 cm in diameter and right: 5.8 cm in length x 0.2 cm in diameter). Ovaries are not present. ? The uterine serosa is medley-albright, smooth. Within the anterior uterine cavity there is a small probable medley-brown endometrial polyp measuring 0.2 cm in greatest dimension. The remaining endometrium is medley-brown and has a thickness of 0.1 cm. The myometrium is medley-white and has an average thickness of 1.5 cm. The ectocervix is medley-albright, and the endocervix is medley-white, shiny. The left and right fallopian tubes have medley-oliveira serosa and sectioning discloses with a pinpoint lumen throughout. The right fallopian tube has a 0.6 and mucin greatest dimension paratubal cyst. ? Cloth Finishing Range Tender sections are submitted as follows: BLOCK MONTOYA 1-2- ??detached left fallopian tube cross-sections and fimbria 3-4- ??attached right fallopian tube cross-sections with paratubal cyst and fimbria 5- bilateral cervix (anterior marked by blue) 6- ??bilateral lower uterine segments (anterior marked by blue ink) 7-9- ??posterior endomyometrium including probable endometrial polyp 10-11- ??anterior endomyometrium special service representative sections Dr. Mora 08/26/2018 3:08 PM End of Report [facility] 08/24/2018 11:4 5 EDT 08/25/2018 11:45 EDT Raul Mak MD PATHOLOGY ORDERABLES [facility] [address] [place] [address] documented in this encounter Visit Diagnoses Not on filedocumented in this encounter Care Teams Is Analyst Relationship Specialty Start Date End Date Naina Lindsey MD [address] [place] [address] PCP - General 02/13/15 documented as of this encounter
--- OUTSIDE RECORDS SUMMARY | 2023-11-09 18:21 | XMS_ITS | Encounter Summary ---
Author Organization [facility] Address [address] [place] [address] Care Team Providers Care Silviculturist Name Role Phone César Robert MD, Naina Primary Care Provider [phone] Reason for Visit * Reason Onset Date Comments Appointment Related 04/06/2019 Encounter Details Date Type Department Care Team (Late st Contact Info) Description 04/06/2019 Telephone [facility] Rehabilitation Therapy - [address] [id number] Therapy, Physical Appointment Related Social History Tobacco Use Types Packs/Day Years Used Date Smoking Tobacco: Never Assessed Sex and Gender Information Value Date Recorded Sex Assigned at Not on file Gender Identity Not on file Sexual Orientation Not on file documented as of this encounter Miscellaneous Notes * Telephone Encounter - Gretchen Dietz MA - 04/06/2019 1126 EST VM message left for patients parent confirming availability for re-schedule of May 04 from - here at [facility]. This is a re-schedule from today as the vendor was ill. Gretchen Dietz MA 04/06/2019 11:26 documented in this encounter Plan of Treatment Not on file documented as of this encounter Visit Diagnoses Not on filedocumented in this encounter Care Teams Silviculturist Relationship Specialty Start Date End Date Naina Lindsey MD [address] [place], [place] [address] PCP - General 02/13/15 documented as of this encounter
--- OUTSIDE RECORDS SUMMARY | 2023-11-09 18:21 | XMS_ITS | Encounter Summary ---
Author Organization [facility] Address [address] [place] [address] Care Team Providers Care Depilatory Painter Name Role Phone César Robert MD, Naina Primary Care Provider [phone] Reason for Visit * Reason Onset Date Comments Appointment Related 11/04/2018 Encounter Details Date Type Department Care Team (Late st Contact Info) Description 11/04/2018 Telephone [facility] Rehabilitation Therapy - [address] [address] Therapist, Physical, PT Appointment Related Social History Tobacco Use Types Packs/Day Years Used Date Smoking Tobacco: Never Assessed Sex and Gender Information Value Date Recorded Sex Assigned at Not on file Gender Identity Not on file Sexual Orientation Not on file documented as of this encounter Miscellaneous Notes * Telephone Encounter - Gretchen Dietz - 11/04/2018 1120 EDT Voicemail message left for caregiver, Fernanda, to call back into the wheelchair clinic to do the intake and scheduling for Tana to be seen for a seating evaluation. Gretchen Dietz 11/04/2018 11:21 documented in this encounter Plan of Treatment Not on file documented as of this encounter Visit Diagnoses Not on filedocumented in this encounter Care Teams Depilatory Painter Relationship Specialty Start Date End Date Naina Lindsey MD [address] [place] [address] [place], [place] [address] PCP - General 02/13/15 documented as of this encounter
--- OUTSIDE RECORDS SUMMARY | 2023-11-09 18:21 | XMS_ITS | Encounter Summary ---
Author Organization [facility] Address [address] [place] [address] Care Team Providers Care Mandarin Teacher Name Role Phone César Robert MD, Naina Primary Care Provider [phone] Encounter Details Date Type Department Care Team (Latest Contact Info) Description 11/30/2018 12:49 EDT - 11/30/2018 23:59 EDT Hospital Encounter [address] [address] Lorna Bal, MANAGER LEARNING [address] [facility] [address] [place] [phone] Discharge Disposition: Auto Discharge Social History Tobacco Use Types Packs/Day Years Used Date Smoking Tobacco: Never Assessed Sex and Gender Information Value Date Recorded Sex Assigned at Not on file Gender Identity Not on file Sexual Orientation Not on file documented as of this encounter Discharge Diagnoses Diagnosis 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 clotrimazole-betamethaso ne (LOTRISONE) cream Apply topically to affected area 2 times daily. FA/mv,Ca,iron,min/lycope ne/lut (MULTIVITAL ORAL) Take by mouth. nystatin (MYCOSTATIN) powder Apply topically 2 times daily. polyethylene glycol 3350 (MIRALAX) 17 gram packet Take 17 g by mouth daily. UNABLE TO FIND Med Name: control pill to control menses documented as of this encounter Discharge Disposition Disposition Code Departure Means Destination Auto Discharge Home documented in this encounter Plan of Treatment Not on file documented as of this encounter Visit Diagnoses Not on filedocumented in this encounter Care Teams Mandarin Teacher Relationship Specialty Start Date End Date Naina Lindsey MD [address] [place] [place] [address] PCP - General 02/13/15 documented as of this encounter
--- OUTSIDE RECORDS SUMMARY | 2023-11-09 18:21 | XMS_ITS | Encounter Summary ---
Author Organization [facility] Address [address] [place] [address] Care Team Providers Care Hide Inspector Name Role Phone César Robert MD, Naina Primary Care Provider [phone] Reason for Visit * Reason Onset Date Comments Appointment Related 11/05/2018 Encounter Details Date Type Department Care Team (Late st Contact Info) Description 11/05/2018 Telephone [facility] Rehabilitation Therapy - [address] [address] Therapist, Physical, PT Appointment Related Social History Tobacco Use Types Packs/Day Years Used Date Smoking Tobacco: Never Assessed Sex and Gender Information Value Date Recorded Sex Assigned at Not on file Gender Identity Not on file Sexual Orientation Not on file documented as of this encounter Miscellaneous Notes * Telephone Encounter - Gretchen Dietz - 11/05/2018 1344 EDT [facility] [address] [address] Person providing information? Fernanda - Caregiver Guardian: - Phone number: [phone] 1. Who recommended that you be seen in wheelchair clinic? EDU Newell 2. What is your diagnosis (reason for needing a wheelchair)? Scoliosis 3. Have you seen your referring physician within the past 6 months for the diagnosis (reason you need a wheelchair)? Yes 4. Reason for appointment? Seating issues 5. What type of chair are you currently using? Manual wheelchair 6. How old is the wheelchair? 3 yrs. a. If less than 3 years old: What isn't working with the present chair? - 7. Do you still fit in this wheelchair? No, Why not? She fits but very uncomfortable 8. If being seen for a new wheelchair: what kind do you think you need? 9. Where do you plan to use your wheelchair? For all activities of daily living in home and community 10. Do you anticipate any problems getting your new wheelchair in, out or around your home? No 11. Is there a ramp to get into your home? Yes 12. Do you have any skin breakdown on your buttocks caused by seating/cushion? no 13. Are you able to walk in your home? no If yes: Distance able to walk? - Device used? 14. How do you transfer? Tomasa lift 15. Do you need assistance for your transfers? yes 16. Will anyone be with you at time of appointment? Yes 17. Approximate Height? 5' 2 18. Approximate Weight? 114 lbs. 19. Name of Medical Vendor? [employer] 20. Are you receiving Physical Therapy, Occupational Therapy or Speech-Language Pathology Services?No 21. Are there any additional areas of function or concern that you would like help with? No 22. Do you have any other requests, comments, questions you would like to add prior to your appointment? No 23. To whom should we send an additional questionnaire (if needed)? - Gretchen Dietz [facility] - [address] [address] Telephone Intake Information for Scheduling NEW Patients for Therapy Referring Provider: EDU Newell Script/referral MD office faxing Primary Insurance: Medicaid Secondary Insurance: - If Medicaid: For patients age 21+: Have you been seen in therapy since April first of this year? No Notes/other: Caregiver reports she is very uncomfortable/feet, legs turning purple at time. Footrest are still not adequate. Pressure sores develop. Her body has changed since getting chair. Caregiver reported issues with chair and I advised that she reach out to the vendor to address those mechanical issues. Date: Nov 30 Therapist: Ismael @ 12:30 Location: [facility] Name of Supplier: [employer] Name of Rep: Ramin @ 12:30 Reason For Appt: (manual, power, scooter, cushion, seating): Seating Pressure Mapping? No Gretchen Dietz documented in this encounter Plan of Treatment Not on file documented as of this encounter Visit Diagnoses Not on filedocumented in this encounter Care Teams Hide Inspector Relationship Specialty Start Date End Date Naina Lindsey MD [address] [place] [address] PCP - General 02/13/15 documented as of this encounter
--- OUTSIDE RECORDS SUMMARY | 2023-11-09 18:21 | XMS_ITS | Encounter Summary ---
Author Organization [facility] Address [address] [place] [address] Care Team Providers Care Business Continuity Planner Name Role Phone César Robert MD, Naina Primary Care Provider [phone] Reason for Visit * Reason Onset Date Comments Appointment Related 03/03/2019 Encounter Details Date Type Department Care Team (Late st Contact Info) Description 03/03/2019 Telephone [facility] Rehabilitation Therapy - [address] [phone] Therapy, Physical Appointment Related Social History Tobacco Use Types Packs/Day Years Used Date Smoking Tobacco: Never Assessed Sex and Gender Information Value Date Recorded Sex Assigned at Not on file Gender Identity Not on file Sexual Orientation Not on file documented as of this encounter Miscellaneous Notes * Telephone Encounter - Gretchen Dietz MA - 03/03/2019 0842 EST Per phone message from caregiver into the wheelchair clinic they have confirmed that they are available for the wheelchair clinic appointment here at [facility] from 02-05. GRETCHEN DIETZ MA 03/03/2019 8:43 documented in this encounter Plan of Treatment Not on file documented as of this encounter Visit Diagnoses Not on filedocumented in this encounter Care Teams Business Continuity Planner Relationship Specialty Start Date End Date Naina Lindsey MD [address] [place] [address] PCP - General 02/13/15 documented as of this encounter
--- OUTSIDE RECORDS SUMMARY | 2023-11-09 18:21 | XMS_ITS | Encounter Summary ---
Author Organization [facility] Address [address] [place] [address] Care Team Providers Care International Logistics Analyst Name Role Phone César Robert MD, Naina Primary Care Provider [phone] Reason for Visit * Reason Onset Date Comments Appointment Related 11/26/2018 Encounter Details Date Type Department Care Team (Late st Contact Info) Description 11/26/2018 Telephone [facility] Rehabilitation Therapy - [address] [address] Therapist, Physical, PT Appointment Related Social History Tobacco Use Types Packs/Day Years Used Date Smoking Tobacco: Never Assessed Sex and Gender Information Value Date Recorded Sex Assigned at Not on file Gender Identity Not on file Sexual Orientation Not on file documented as of this encounter Miscellaneous Notes * Telephone Encounter - Gretchen Dietz - 11/26/2018 1414 EDT I spoke with the patients caregiver and reminded them of their wheelchair clinic appointment, to occur in two business days time. Gretchen Dietz 11/26/2018 14:14 documented in this encounter Plan of Treatment Not on file documented as of this encounter Visit Diagnoses Not on filedocumented in this encounter Care Teams International Logistics Analyst Relationship Specialty Start Date End Date Naina Lindsey MD [address] [place] [address] [place] [address] PCP - General 02/13/15 documented as of this encounter
--- OUTSIDE RECORDS SUMMARY | 2023-11-09 18:21 | XMS_ITS | Encounter Summary ---
Author Organization [facility] Address [address] [place] [address] Care Team Providers Care Plaster Pattern Caster Name Role Phone César Robert MD, Naina Primary Care Provider Encounter Details Date Type Department Care Team (Latest Contact Info) Description 04/03/2015 9:31 EST - 04/03/2015 23:59 EST Hospital Encounter [address] [address] Naina Lindsey MD [address] [place], [place] [id number] Discharge Disposition: Home or Self Care Social History Tobacco Use Types Packs/Day Years Used Date Smoking Tobacco: Never Assessed Sex and Gender Information Value Date Recorded Sex Assigned at Not on file Gender Identity Not on file Sexual Orientation Not on file documented as of this encounter Discharge Diagnoses Diagnosis S06.9X9S Unspecified intracranial injury with loss of consciousness of unspecified duration, sequela-S06.9X9S[ICD-10-CM] 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, 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[ICD-10-CM] Z46.89 Encounter for fitting and adjustment of other specified devices-Z46.89[ICD-10-CM] documented in this encounter Medications at Time of Discharge Medication Sig Dispensed Refills Start Date End Date baclofen (LIORESAL) 10 mg tablet Take 10 mg by mouth UNABLE TO FIND Med Name: control pill to control menses documented as of this encounter Discharge Disposition Disposition Code Departure Means Destination Home or Self Senior Living documented in this encounter Plan of Treatment Not on file documented as of this encounter Visit Diagnoses Not on filedocumented in this encounter Care Teams Plaster Pattern Caster Relationship Specialty Start Date End Date Naina Lindsey MD [address] [place] [address] PCP - General 02/13/15 documented as of this encounter
--- OUTSIDE RECORDS SUMMARY | 2023-11-09 18:21 | XMS_ITS | Encounter Summary ---
Author Organization [facility] Address [address] [place] [address] Care Team Providers Care Perinatal Coordinator Name Role Phone César Robert MD, Naina Primary Care Provider [phone] Reason for Visit * Reason Onset Date Comments Other 01/04/2016 Encounter Details Date Type Department Care Team (Late st Contact Info) Description 01/04/2016 Telephone [facility] Rehabilitation Therapy - [address] [phone] Therapy, Outpatient, Other Social History Tobacco Use Types Packs/Day Years Used Date Smoking Tobacco: Never Assessed Sex and Gender Information Value Date Recorded Sex Assigned at Not on file Gender Identity Not on file Sexual Orientation Not on file documented as of this encounter Miscellaneous Notes * Telephone Encounter - Mile Ronquillo - 01/04/2016 1112 EDT Patients mother called. They had their Wheelchair Clinic fitting appointment on 12/04/15. They were not given the wheelchair at that appointment, as the cushion needed to be upholstered. It has now been a month and [facility] has not delivered the chair, or given the patient's mother any indication of when it will be coming. Patient's mother is very upset, as this has now been a year long process. I have spoken to Oliver Lozano at [facility], but he could not see in their paperwork a clear delivery timeframe. I have sent an e-mail to Ramin Samuel and Amna Giraldo at [facility] asking that someone call Javed and give her an estimate of when the chair will be delivered. documented in this encounter Plan of Treatment Not on file documented as of this encounter Visit Diagnoses Not on filedocumented in this encounter Care Teams Perinatal Coordinator Relationship Specialty Start Date End Date Naina Lindsey MD [address] [place] [address] PCP - General 02/13/15 documented as of this encounter
--- OUTSIDE RECORDS SUMMARY | 2023-11-09 18:21 | XMS_ITS | Encounter Summary ---
Author Organization [facility] Address [address] [place] [address] Care Team Providers Care Cranberry Sorter Name Role Phone César Robert MD, Naina Primary Care Provider [phone] Reason for Visit * Reason Onset Date Comments Appointment Related 05/25/2015 Encounter Details Date Type Department Care Team (Late st Contact Info) Description 05/25/2015 Telephone [facility] Rehabilitation Therapy - [address] [phone] Therapy, Outpatient, Appointment Related Social History Tobacco Use Types Packs/Day Years Used Date Smoking Tobacco: Never Assessed Sex and Gender Information Value Date Recorded Sex Assigned at Not on file Gender Identity Not on file Sexual Orientation Not on file documented as of this encounter Miscellaneous Notes * Telephone Encounter - Mile Ronquillo - 05/25/2015 1010 EST I called and left a message on the answering machine reminding the patient's mother of their wheelchair clinic appointment, to occur in two business day's time at [facility]. documented in this encounter Plan of Treatment Not on file documented as of this encounter Visit Diagnoses Not on filedocumented in this encounter Care Teams Cranberry Sorter Relationship Specialty Start Date End Date Naina Lindsey MD [address] [place] [address] PCP - General 02/13/15 documented as of this encounter
--- OUTSIDE RECORDS SUMMARY | 2023-11-09 18:21 | XMS_ITS | Encounter Summary ---
Author Organization [facility] Address [address] [place] [address] Care Team Providers Care Director Of Solutions Architecture Name Role Phone César Robert MD, Naina Primary Care Provider [phone] Reason for Visit * Reason Onset Date Comments Appointment Related 04/04/2019 Encounter Details Date Type Department Care Team (Late st Contact Info) Description 04/04/2019 Telephone [facility] Rehabilitation Therapy - [address] [phone] Therapy, Physical Appointment Related Social History Tobacco Use Types Packs/Day Years Used Date Smoking Tobacco: Never Assessed Sex and Gender Information Value Date Recorded Sex Assigned at Not on file Gender Identity Not on file Sexual Orientation Not on file documented as of this encounter Miscellaneous Notes * Telephone Encounter - Gretchen Dietz MA - 04/04/2019 1542 EST I spoke with the patients Mom, Javed, and reminded them of their wheelchair clinic appointment, to occur in two business days time. Gretchen Dietz MA 04/04/2019 15:42 documented in this encounter Plan of Treatment Not on file documented as of this encounter Visit Diagnoses Not on filedocumented in this encounter Care Teams Director Of Solutions Architecture Relationship Specialty Start Date End Date Naina Lindsey MD [address] [place], [place] [id number] PCP - General 02/13/15 documented as of this encounter
--- OUTSIDE RECORDS SUMMARY | 2023-11-09 18:21 | XMS_ITS | Encounter Summary ---
Author Organization [facility] Address [address] [place] [address] Care Team Providers Care Terrazzo Mechanic Name Role Phone César Robert MD, Naina Primary Care Provider [phone] Encounter Details Date Type Department Care Team (Latest Contact Info) Description 08/24/2018 17:22 EDT - 08/24/2018 23:59 EDT Hospital Encounter [address] [address] Unknown, Provider, Discharge Disposition: Home or Self Care Social [...] Code Departure Means Destination Home or Self Retirement documented in this encounter Plan of Treatment Not on file documented as of this encounter Visit Diagnoses Not on filedocumented in this encounter Care Teams Terrazzo Mechanic Relationship Specialty Start Date End Date Naina Lindsey MD [address] [place] [address] [place] [address] PCP - General 02/13/15 documented as of this encounter
--- OUTSIDE RECORDS SUMMARY | 2023-11-09 18:21 | XMS_ITS | Encounter Summary ---
Author Organization [facility] Address [address] [place] [address] Care Team Providers Care Core Java Software Engineer Name Role Phone César Robert MD, Naina Primary Care Provider [phone] Encounter Details Date Type Department Care Team (Latest Contact Info) Description 07/24/2015 12:40 EDT - 07/24/2015 23:59 EDT Hospital Encounter [address] [address] Naina Lindsey MD [address] [place], [place] [address] Discharge Disposition: Auto Discharge Social History Tobacco [...] on filedocumented in this encounter Care Teams Core Java Software Engineer Relationship Specialty Start Date End Date Naina Lindsey MD [address] [facility] [facility] [place] [address] PCP - General 02/13/15 documented as of this encounter
--- OUTSIDE RECORDS SUMMARY | 2023-11-09 18:21 | XMS_ITS | Encounter Summary ---
Author Organization [facility] Address [address] [place] [address] Care Team Providers Care Cruise Counselor Name Role Phone César Robert MD, Naina Primary Care Provider [phone] Reason for Visit * Reason Onset Date Comments Appointment Related 05/04/2019 Encounter Details Date Type Department Care Team (Late st Contact Info) Description 05/04/2019 Telephone [facility] Rehabilitation Therapy - [address] [id number] Therapy, Physical Appointment Related Social History Tobacco Use Types Packs/Day Years Used Date Smoking Tobacco: Never Assessed Sex and Gender Information Value Date Recorded Sex Assigned at Not on file Gender Identity Not on file Sexual Orientation Not on file documented as of this encounter Miscellaneous Notes * Telephone Encounter - Gretchen Dietz MA - 05/04/2019 1442 EST I called and left a message on the answering machine reminding the patient of their wheelchair clinic appointment, to occur in two business day's time. Gretchen Dietz MA 05/04/2019 14:42 documented in this encounter Plan of Treatment Not on file documented as of this encounter Visit Diagnoses Not on filedocumented in this encounter Care Teams Cruise Counselor Relationship Specialty Start Date End Date Naina Lindsey MD [address] [place] [address] PCP - General 02/13/15 documented as of this encounter
--- OUTSIDE RECORDS SUMMARY | 2023-11-09 18:21 | XMS_ITS | Encounter Summary ---
Author Organization [facility] Address [address] [place] [address] Care Team Providers Care Extruder Name Role Phone César Robert MD, Naina Primary Care Provider [phone] Reason for Visit * Reason Onset Date Comments Appointment Related 05/14/2015 Encounter Details Date Type Department Care Team (Late st Contact Info) Description 05/14/2015 Telephone [facility] Rehabilitation Therapy - [facility] [address] [place] [address] Therapy, Outpatient, Appointment Related Social History Tobacco Use Types Packs/Day Years Used Date Smoking Tobacco: Never Assessed Sex and Gender Information Value Date Recorded Sex Assigned at Not on file Gender Identity Not on file Sexual Orientation Not on file documented as of this encounter Miscellaneous Notes * Telephone Encounter - Mile Ronquillo - 05/14/2015 1447 EST Images from the original note were not included. [address] [facility]; [place] [address] May 14, 2015 Dear Javed; Per our conversation, Tana has been scheduled to be seen by the [facility] Wheelchair Assessment Team for an additional power chair evaluation. Your appointment will last for approximately 3 hours and is scheduled for: Date: Friday July 10, 2015 Time: 12:30 Place: [facility] [address] [place] [id number] The evaluation team will include the following people: [facility] Rehabilitation Physical Therapist: Candelaria Jaquez PT Medical Supplier Last Inserter: Ramin from [facility] Please call to pre-register with [facility] prior to your appointment at [phone]. During the evaluation, we would like to talk about your physical condition and the environment in which you will use the chair, your mobility and the equipment you are using. Please tell us your concerns and preferences about what you feel you will need. The therapist will evaluate your posture andfunction in your current wheelchair and have you lie down to evaluate trunk, arm, and leg flexibility. During the evaluation, we would like to let you try equipment that most closely meets your needs. The appointment will end with a written prescription if specific equipment is recommended. If you are currently using a wheelchair and cushion, please bring them with you. Please have anyone who is f amiliar with your needs come to the evaluation (i.e. family, therapists, teachers, etc). *Insurance Reminder* Your health insurance will be billed for the physical therapy evaluation. Managed Care: If your insurance is a managed care, please double check with your insurance company to verify that the appropriate referrals are in place for a physical therapy visit. If they are not in place we may need to cancel this appointment due to coverage, or you may be billed for this visit. If you have any further questions or you are unable to make your appointment please call [phone]. *48-hour notice is required for cancellation.* We look forward to seeing you. Mile Ronquillo [facility] Rehabilitation Therapy Center [facility] documented in this encounter Plan of Treatment Not on file documented as of this encounter Visit Diagnoses Not on filedocumented in this encounter Care Teams Extruder Relationship Specialty Start Date End Date Naina Lindsey MD [address] [place] [address] PCP - General 02/13/15 documented as of this encounter
--- OUTSIDE RECORDS SUMMARY | 2023-11-09 18:21 | XMS_ITS | Encounter Summary ---
Author Organization [facility] Address [address] [place] [address] Care Team Providers Care Coin Collector Name Role Phone César Robert MD, Naina Primary Care Provider [phone] Reason for Visit * Reason Onset Date Comments Appointment Related 03/01/2015 Encounter Details Date Type Department Care Team (Late st Contact Info) Description 03/01/2015 Telephone [facility] Rehabilitation Therapy - [address] [id number] Therapy, Outpatient, Appointment Related Social History Tobacco Use Types Packs/Day Years Used Date Smoking Tobacco: Never Assessed Sex and Gender Information Value Date Recorded Sex Assigned at Not on file Gender Identity Not on file Sexual Orientation Not on file documented as of this encounter Miscellaneous Notes * Telephone Encounter - Mile Ronquillo - 03/01/2015 1134 EST Patient's mother has identified Assistive Technology needs : Patient's smart talk communication device needs to be better integrated with her wheelchair. Patient is coming to be seen in the Wheelchair Clinic by Candelaria Jaquez PT on 04/03/15. (as of yet unsure if they will be switching from manual to power wheelchair) This case was discussed at today's AT meeting by Candelaria Jaquez PT and Phyllis Whitman CCC-CENTERLESS GRINDER : Phyllis indicates she may need to do a Speech Language Evaluation for this patient. I have called and relayed this information to the patient's mother : Patient is part of the [facility] - being seen by their Speech Language Pathologists : Zina Thomas and Osman Rodriguez. Per Phyllis's: CENTERLESS GRINDER notes need to be obtained so that she can determine the length/scope of the patient's SLE appointment so that it may be properly scheduled. I will contact the [employer] to request these records. documented in this encounter Plan of Treatment Not on file documented as of this encounter Visit Diagnoses Not on filedocumented in this encounter Care Teams Coin Collector Relationship Specialty Start Date End Date Naina Lindsey MD [address] [place] [address] PCP - General 02/13/15 documented as of this encounter
--- OUTSIDE RECORDS SUMMARY | 2023-11-09 18:21 | XMS_ITS | Encounter Summary ---
Author Organization [facility] Address [address] [place] [address] Care Team Providers Care Cold Reduction Roller Name Role Phone César Robert MD, Naina Primary Care Provider [phone] Reason for Visit * Reason Onset Date Comments Appointment Related 11/30/2015 Encounter Details Date Type Department Care Team (Late st Contact Info) Description 11/30/2015 Telephone [facility] Rehabilitation Therapy - [address] [id number] Therapy, Outpatient, Appointment Related Social History Tobacco Use Types Packs/Day Years Used Date Smoking Tobacco: Never Assessed Sex and Gender Information Value Date Recorded Sex Assigned at Not on file Gender Identity Not on file Sexual Orientation Not on file documented as of this encounter Miscellaneous Notes * Telephone Encounter - Mile Ronquillo - 11/30/2015 1011 EDT I spoke with the patient's mother and reminded them of their wheelchair clinic appointment, to occur in two business days time at [facility]. Javed confirmed. documented in this encounter Plan of Treatment Not on file documented as of this encounter Visit Diagnoses Not on filedocumented in this encounter Care Teams Cold Reduction Roller Relationship Specialty Start Date End Date Naina Lindsey MD [address] [place] [address] PCP - General 02/13/15 documented as of this encounter
--- OUTSIDE RECORDS SUMMARY | 2023-11-09 18:21 | XMS_ITS | Encounter Summary ---
Author Organization [facility] Address [address] [place] [address] Care Team Providers Care Care Transition Coordinator Name Role Phone César Robert MD, Naina Primary Care Provider [phone] Encounter Details Date Type Department Care Team (Latest Contact Info) Description 05/29/2015 17:07 EST - 05/29/2015 23:59 EST Hospital Encounter [address] [address] Naina Lindsey MD [address] [place], [place] [address] Discharge Disposition: Home or Self Care Social History Tobacco Use Types Packs/Day Years Used Date Smoking Tobacco: Never Assessed Sex and Gender Information Value Date Recorded Sex Assigned at Not on file Gender Identity Not on file Sexual Orientation Not on file documented as of this encounter Discharge Diagnoses Diagnosis 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, 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[ICD-10-CM] S06.9X9A Unspecified intracranial injury with loss of consciousness of unspecified duration, initial encounter-S06.9X9A[ICD-10-CM] Z46.89 Encounter for fitting and adjustment of other specified devices-Z46.89[ICD-10-CM] documented in this encounter Medications at Time of Discharge Medication Sig Dispensed Refills Start Date End Date baclofen (LIORESAL) 10 mg tablet Take 10 mg by mouth UNABLE TO FIND Med Name: control pill to control menses documented as of this encounter Discharge Disposition Disposition Code Departure Means Destination Home or Self Prison documented in this encounter Plan of Treatment Not on file documented as of this encounter Visit Diagnoses Not on filedocumented in this encounter Care Teams Care Transition Coordinator Relationship Specialty Start Date End Date Naina Lindsey MD [address] [facility] [address] PCP - General 02/13/15 documented as of this encounter
--- OUTSIDE RECORDS SUMMARY | 2023-11-09 18:21 | XMS_ITS | Encounter Summary ---
Author Organization [facility] Address [address] [place] [address] Care Team Providers Care In Flight Refueling Manager Name Role Phone César Robert MD, Naina Primary Care Provider [phone] Reason for Visit * Reason Onset Date Comments Appointment Related 07/20/2015 Encounter Details Date Type Department Care Team (Late st Contact Info) Description 07/20/2015 Telephone [facility] Rehabilitation Therapy - [address] [address] Therapy, Outpatient, Appointment Related Social History Tobacco Use Types Packs/Day Years Used Date Smoking Tobacco: Never Assessed Sex and Gender Information Value Date Recorded Sex Assigned at Not on file Gender Identity Not on file Sexual Orientation Not on file documented as of this encounter Miscellaneous Notes * Telephone Encounter - Mile Ronquillo - 07/20/2015 0947 EDT I called and left a message on the answering machine reminding the patient of their wheelchair clinic appointment, to occur in two business day's time at [facility]. documented in this encounter Plan of Treatment Not on file documented as of this encounter Visit Diagnoses Not on filedocumented in this encounter Care Teams In Flight Refueling Manager Relationship Specialty Start Date End Date Naina Lindsey MD [address] [place] [address] PCP - General 02/13/15 documented as of this encounter
--- OUTSIDE RECORDS SUMMARY | 2023-11-09 18:21 | XMS_ITS | Encounter Summary ---
Author Organization [facility] Address [address] [place] [address] Care Team Providers Care Police Sergeant Precinct Name Role Phone César Robert MD, Naina Primary Care Provider [phone] Reason for Visit * Reason Onset Date Comments Appointment Related 03/30/2015 Encounter Details Date Type Department Care Team (Late st Contact Info) Description 03/30/2015 Telephone [facility] Rehabilitation Therapy - [address] [address] Therapy, Outpatient, Appointment Related Social History Tobacco Use Types Packs/Day Years Used Date Smoking Tobacco: Never Assessed Sex and Gender Information Value Date Recorded Sex Assigned at Not on file Gender Identity Not on file Sexual Orientation Not on file documented as of this encounter Miscellaneous Notes * Telephone Encounter - Mile Ronquillo - 03/30/2015 1407 EST I spoke with the patient's mother and reminded them of their wheelchair clinic appointment, to occur in two business days time at [facility]. documented in this encounter Plan of Treatment Not on file documented as of this encounter Visit Diagnoses Not on filedocumented in this encounter Care Teams Police Sergeant Precinct Relationship Specialty Start Date End Date Naina Lindsey MD [address] [place] [address] [place] [address] PCP - General 02/13/15 documented as of this encounter
--- OUTSIDE RECORDS SUMMARY | 2023-11-09 18:21 | XMS_ITS | Encounter Summary ---
Author Organization [facility] Address [address] [place] [address] Care Team Providers Care Billet Shearer Name Role Phone César Robert MD, Naina Primary Care Provider [phone] Reason for Visit * Reason Onset Date Comments Appointment Related 02/13/2015 Encounter Details Date Type Department Care Team (Late st Contact Info) Description 02/13/2015 Telephone [facility] Rehabilitation Therapy - [address] [address] Therapy, Outpatient, Appointment Related Social History Tobacco Use Types Packs/Day Years Used Date Smoking Tobacco: Never Assessed Sex and Gender Information Value Date Recorded Sex Assigned at Not on file Gender Identity Not on file Sexual Orientation Not on file documented as of this encounter Miscellaneous Notes * Telephone Encounter - Mile Ronquillo - 02/13/2015 1102 EDT [facility] [address] [address] Person providing information? Mother Guardian: Mother Phone number: [phone] 1. Who recommended that you be seen in wheelchair clinic? Naina Robert MD 2. What is your diagnosis (reason for needing a wheelchair)? TBI 3. Have you seen your referring physician within the past 6 months for the diagnosis (reason you need a wheelchair)? yes 4. Reason for appointment New Chair 5. What type of chair are you currently using? manual 6. How old is the wheelchair? 7 7. If less than 3 years old: What isn't working with the present chair? - 8. Do you still fit in this wheelchair? - If No: Why not? - 9. If being seen for a new wheelchair: what kind do you think you need (Manual, Power)? Unsure 10. Where do you plan to use your wheelchair (Inside, Outside, MD appts, Shopping, All)? ALL 11. Do you anticipate any problems getting your new wheelchair in, out or around your home? No 12. Is there a ramp to get into your home? yes 13. Do you have any skin breakdown on your buttocks caused by seating/cushion? no 14. Are you able to walk in your home, if so, include distance and device? no 15. How do you transfer pelon 16. Do you need assistance for your transfers? Yes 17. Will anyone be with you at time of appt? Yes, mother 18. Approximate Height? 5'2 19. Approximate Weight? 105lb 20. Name of Medical Vendor? [facility] 21. Are you receiving Physical Therapy? Occupational Therapy? Speech-Language Treatment? Yes If Yes: Where? School 22. Are there any additional areas of function or concern that you would like help with today? Communication Memory? Self Care? Communication? Computer? Controlling your environment such as telephone, etc.? Visual Aids to help with reading, seeing when it's dark outside, etc.? 23. Do you use any equipment to help you with your dressing/other self care/computer/communication?Is it meeting your needs? Yes What type of communication device? Smart Talk Who prescribed/acquired for you? [place] AT project -through the school 24. Do you have any other requests, comments, questions you would like to add prior to your appt? Smart talk needs to work with chair better 25. To whom should we send an additional questionnaire (if needed)? -- [facility] - [address] [address] Telephone Intake Information for Scheduling NEW Patients for Therapy Referring Provider: Naina Robert MD Script/referral MD office faxing Primary Insurance: Medicaid Secondary Insurance: - If Medicaid: Have you been seen in therapy since 04-27-14? Yes By whom? Through the school How many visits have you had since 04-27-14? 26 Let the patient know that Medicaid will only cover 30 total therapy visits (PT, OT, and VP [employer]NER[employer] combined) between 04-27-14 and 04-26-15. If the patient has exceeded 30 visits already, further therapy will not be covered by their insurance. Date: Tuesday April 07, 2015 Therapist: Candelaria Jaquez, PT @ 1:15 Location: [facility] Name of Supplier: [facility] Name of Rep: Ramin @ 1:45 Reason For Appt: manual Vs. Power Pressure Mapping? no Mile Ronquillo documented in this encounter Plan of Treatment Not on file documented as of this encounter Visit Diagnoses Not on filedocumented in this encounter Care Teams Billet Shearer Relationship Specialty Start Date End Date Naina Lindsey MD [address] [place] [address] PCP - General 02/13/15 documented as of this encounter
--- OUTSIDE RECORDS SUMMARY | 2023-11-09 18:21 | XMS_ITS | Encounter Summary ---
Author Organization [facility] Address [address] [place] [address] Care Team Providers Care Hospital Nurse Name Role Phone César Robert MD, Naina Primary Care Provider [phone] Reason for Visit * Reason Onset Date Comments Appointment Related 03/02/2019 Encounter Details Date Type Department Care Team (Late st Contact Info) Description 03/02/2019 Telephone [facility] Rehabilitation Therapy - [address] [address] Therapy, Physical Appointment Related Social History Tobacco Use Types Packs/Day Years Used Date Smoking Tobacco: Never Assessed Sex and Gender Information Value Date Recorded Sex Assigned at Not on file Gender Identity Not on file Sexual Orientation Not on file documented as of this encounter Miscellaneous Notes * Telephone Encounter - Gretchen Dietz MA - 03/02/2019 3340 EST Voicemail message left for this patient asking that she call back into the wheelchair clinic at [phone] to confirm her availability for a custom molding appointment here at [facility] with Candelaria Jaquez, PT, DPT and Ramin Samuel ATP from [employer] for Thu04/06/19, 02-05. GRETCHEN DIETZ MA 03/02/2019 15:46 documented in this encounter Plan of Treatment Not on file documented as of this encounter Visit Diagnoses Not on filedocumented in this encounter Care Teams Hospital Nurse Relationship Specialty Start Date End Date Naina Lindsey MD [address] [place] [address] PCP - General 02/13/15 documented as of this encounter
--- OUTSIDE RECORDS SUMMARY | 2023-11-09 18:21 | XMS_ITS | Encounter Summary ---
Author Organization [facility] Address [address] [place] [address] Care Team Providers Care Network Architect Manager Name Role Phone César Robert MD, Naina Primary Care Provider [phone] Reason for Visit * Reason Onset Date Comments DME 08/11/2019 Encounter Details Date Type Department Care Team (Late st Contact Info) Description 08/11/2019 Telephone [facility] Rehabilitation Therapy - [facility] [address] [place], [place] [id number] Candelaria Jaquez, ELVIRA [address] [place] [address] DME Social History Tobacco Use Types Packs/Day Years Used Date Smoking Tobacco: Never Assessed Sex and Gender Information Value Date Recorded Sex Assigned at Not on file Gender Identity Not on file Sexual Orientation Not on file documented as of this encounter Miscellaneous Notes * Telephone Encounter - Candelaria Jaquez, PT - 08/11/2019 1230 EDT Call to Tana Greco's home provider to let her know that Tana's custom seating system is in and Idid not know if there was an urgent need to deliver it versus waiting until after the COVID 19 riskis lower. She said that they are not taking her out of the home right now, so they would prefer to wait at least 3-4 weeks until the risk is lower. I will put her back on a wait list. Candelaria Jaquez, PT documented in this encounter Plan of Treatment Not on file documented as of this encounter Visit Diagnoses Not on filedocumented in this encounter Care Teams Network Architect Manager Relationship Specialty Start Date End Date Naina Lindsey MD [address] [place] [address] PCP - General 02/13/15 documented as of this encounter
--- OUTSIDE RECORDS SUMMARY | 2023-11-09 18:21 | XMS_ITS | Encounter Summary ---
Author Organization [facility] [place] Address [address] [place] [address] Care Team Providers Care Therapeutic Recreation Director Name Role Phone César Robert MD, Naina Primary Care Provider [phone] Reason for Visit * Reason Onset Date Comments Appointment Related 09/27/2019 Encounter Details Date Type Department Care Team (Late st Contact Info) Description 09/27/2019 Telephone [facility] Rehabilitation Therapy - [address] [phone] Therapy, Physical Appointment Related Social History Tobacco Use Types Packs/Day Years Used Date Smoking Tobacco: Never Assessed Sex and Gender Information Value Date Recorded Sex Assigned at Not on file Gender Identity Not on file Sexual Orientation Not on file documented as of this encounter Miscellaneous Notes * Telephone Encounter - Gretchen Dietz MA - 09/27/2019 1530 EDT VM left for care providers of patient to check in and see if they are ready to schedule the wheelchair appointment needed for Tana to get her custom seating system that is in. I asked that they callback into the wheelchar clinic to update as to when they would like this to happen. Gretchen Dietz MA 09/27/2019 15:32 documented in this encounter Plan of Treatment Not on file documented as of this encounter Visit Diagnoses Not on filedocumented in this encounter Care Teams Therapeutic Recreation Director Relationship Specialty Start Date End Date Naina Lindsey MD [address] [place] [address] PCP - General 02/13/15 documented as of this encounter
--- OUTSIDE RECORDS SUMMARY | 2023-11-09 18:21 | XMS_ITS | Encounter Summary ---
Author Organization [facility] Address [address] [place] [address] Care Team Providers Care Layout Designer Name Role Phone César Robert MD, Naina Primary Care Provider [phone] Encounter Details Date Type Department Care Team (Latest Contact Info) Description 12/04/2015 19:02 EDT - 12/04/2015 23:59 EDT Hospital Encounter [facility] [address] [place] [address] Leonid Candelaria, PT [address] [place] [phone] Andrade Lux MD [address] [facility] [address] [phone] Naina Lindsey MD [address] [place], [place] [address] Discharge Disposition: Auto Discharge Social History Tobacco [...] loss of consciousness of unspecified duration, sequela-S06.9X9S[ICD-10-CM] Z46.89 Encounter for fitting and adjustment of [...] on filedocumented in this encounter Care Teams Layout Designer Relationship Specialty Start Date End Date Naina Lindsey MD [address] [place] [address] PCP - General 02/13/15 documented as of this encounter
--- OUTSIDE RECORDS SUMMARY | 2023-11-09 18:21 | XMS_ITS | Encounter Summary ---
Author Organization [facility] Address [address] [place] [address] Care Team Providers Care Food Service Utility Worker Name Role Phone César Robert MD, Naina Primary Care Provider [phone] Reason for Visit * Reason Onset Date Comments Appointment Related 04/13/2019 Encounter Details Date Type Department Care Team (Late st Contact Info) Description 04/13/2019 Telephone [facility] Rehabilitation Therapy - [address] [phone] Therapy, Physical Appointment Related Social History Tobacco Use Types Packs/Day Years Used Date Smoking Tobacco: Never Assessed Sex and Gender Information Value Date Recorded Sex Assigned at Not on file Gender Identity Not on file Sexual Orientation Not on file documented as of this encounter Miscellaneous Notes * Telephone Encounter - Gretchen Dietz MA - 04/13/2019 1518 EST Call placed to Fannie Villarreal to updated her erickson Cristobal upcoming wheelchair appointment here at [facility] on 05/06 from 2-4. She confirmed they were available for the date/time. Gretchen Dietz MA 04/13/2019 15:19 documented in this encounter Plan of Treatment Not on file documented as of this encounter Visit Diagnoses Not on filedocumented in this encounter Care Teams Food Service Utility Worker Relationship Specialty Start Date End Date Naina Lindsey MD [address] [place] [address] [place], [place] [id number] PCP - General 02/13/15 documented as of this encounter
--- OUTSIDE RECORDS SUMMARY | 2023-11-09 18:21 | XMS_ITS | Encounter Summary ---
Author Organization [facility] Address [address] [place] [address] Care Team Providers Care Wastewater Technician Name Role Phone César Robert MD, Naina Primary Care Provider [phone] Reason for Visit * Reason Onset Date Comments Appointment Related 03/01/2015 Encounter Details Date Type Department Care Team (Late st Contact Info) Description 03/01/2015 Telephone [facility] Rehabilitation Therapy - [address] [id number] Therapy, Outpatient, Appointment Related Social History Tobacco Use Types Packs/Day Years Used Date Smoking Tobacco: Never Assessed Sex and Gender Information Value Date Recorded Sex Assigned at Not on file Gender Identity Not on file Sexual Orientation Not on file documented as of this encounter Miscellaneous Notes * Telephone Encounter - Mile Ronquillo - 03/01/2015 1352 EST On the questionnaire for Wheelchair Clinic the patient's mother indicated that they wished for the patient's Smart Talk communication device to work better with the chair. After discussing this with Phyllis Whitman CCC-SEWER CLEANER and the [employer] it was determined that we needed more info and should acquire the SEWER CLEANER notes from the patient's pathologist at her high school. Spoke with patient's student aid from [employer], Mesha Espinal. She indicates that the bracket that holds the Smart Talk device hits every door frame that they go through, and would like this remedied. Mesha states that there are no unmet SEWER CLEANER needs at this time. I indicated to Mesha that Candelaria Jaquez PT should be able to address this need at the patient's Wheelchair Clinic appointment on 04/07/15. documented in this encounter Plan of Treatment Not on file documented as of this encounter Visit Diagnoses Not on filedocumented in this encounter Care Teams Wastewater Technician Relationship Specialty Start Date End Date Naina Lindsey MD [address] [place] [address] PCP - General 02/13/15 documented as of this encounter
--- OUTSIDE RECORDS SUMMARY | 2023-11-09 18:21 | XMS_ITS | Encounter Summary ---
Author Organization [facility] Address [address] [place] [address] Care Team Providers Care Child Health Associate Name Role Phone César Robert MD, Naina Primary Care Provider [phone] Reason for Visit * Reason Onset Date Comments Other 04/03/2015 Encounter Details Date Type Department Care Team (Late st Contact Info) Description 04/03/2015 Telephone [facility] Rehabilitation Therapy - [facility] [address] [place], [place] [phone] Candelaria Jaquez, PT [address] [place] [phone] Other Social History Tobacco Use Types Packs/Day Years Used Date Smoking Tobacco: Never Assessed Sex and Gender Information Value Date Recorded Sex Assigned at Not on file Gender Identity Not on file Sexual Orientation Not on file documented as of this encounter Miscellaneous Notes * Telephone Encounter - Candelaira Jaquez, PT - 04/03/2015 1654 EST Opened in error documented in this encounter Plan of Treatment Not on file documented as of this encounter Visit Diagnoses Not on filedocumented in this encounter Care Teams Child Health Associate Relationship Specialty Start Date End Date Naina Lindsey MD [address] [place], [place] [phone] PCP - General 02/13/15 documented as of this encounter
--- OUTSIDE RECORDS SUMMARY | 2023-11-09 18:21 | XMS_ITS | Encounter Summary ---
Author Organization [facility] Address [address] [place] [address] Care Team Providers Care Immunology Specialist Name Role Phone César Robert MD, Naina Primary Care Provider [phone] Encounter Details Date Type Department Care Team (Late st Contact Info) Description 05/13/2019 Plan of Care Documentation Social History Tobacco Use Types Packs/Day Years Used Date Smoking Tobacco: Never Assessed Sex and Gender Information Value Date Recorded Sex Assigned at Not on file Gender Identity Not on file Sexual Orientation Not on file documented as of this encounter Progress Notes * Candelaria Jaquez, PT - 05/13/2019 1029 EST Images from the original note were not included. Outpatient Rehab Plan of Care REHABILITATION THERAPIES [facility] REHABILITATION THERAP[facility] - [address] [address] Physical Therapy Progress Note Date of Service: 05/06/2019 Reason for Referral: Diagnosis: Sequelae of Traumatic Brain Injury; Neuromuscular Scoliosis; Wheelchair Dependent; Wheelchair Fitting Date of Onset: 11/12/18 Referring Provider: Lorna Bal NP Precautions: Skin Risk Session #: 2 S: Caregivers report that they no longer set Tana's feet into the padded footrest panels because she gets skin breakdown on her heels. They instead float her heels on pillows. She got a new body jacket that is a little more comfortable. Pain: Tana is non verbal. Caregivers report she still signals that she is uncomfortable in her existing seating system. O: In this reporting period 11/30/2018 to 05/06/2019 Tana has been seen by a physical therapist for only one visit. Relevant objective findings: Integumentary/Anthropometric Characteristics: Palpation/Observation: Posture: Fixed pelvic obliquity and scoliosis. A: Sitting surface to top of the head-n/a B: Sitting surface to acromion-20 C: Back of hip to popliteal surface-14.5 right 15 left D: Floor to popliteal surface-n/a E: Acromion to acromion-n/a F: Width of chest-13.5 Width at waist 13.25 G: Width of hips at widest point-16 HR: Sitting surface to axilla on left 15.5 HL: Chest depth 11 I: Sitting surface to elbow (90 degrees)-n/a Range of Motion and Joint Integrity: Range of Motion: Surgically fixed spinal deformity. Interventions completed today: Physical Therapy today at 14:25-16:30 Total treatment time: 125 minutes Timed code treatment minutes: 125 minutes Interventions included: Wheelchair Management 125 min Custom mold for seating system was created today. ? Discussed ways to support legs. Caregivers float Tana's heels because they break down. She needs something on the chair to support the pillows. Patient/Family Education: Topic: Explained the remaining process for getting Prior authorization of the parts that were recommended today. Learner: caregivers Method: verbal and handout Barriers to Learning: none noted Outcome: verbalized understanding Team Communication: MYA Pleitez from [facility] [facility] and two of Tana's caregivers were present and participated in this entire visit. A: The custom mold was created for Tana's new custom seating system. 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 Scanning Tech Goals: 8 weeks Will have a wheeled mobility device that provides the following: ?? She tolerates sitting for 8 hours a day without signs of pain. P: Treatment/intervention: PT will be provided by Physical Therapist Frequency: 2 times per 8 weeks here (within one week of each other) Intensity: 90 minutes/session Duration: 2 visits Interventions may include: Wheelchair Fitting Further data: nothing to add. Patient/family education: How to position Tana in her new seating system. Discharge plan: When goals are met or progress plateaus. Thank you for this referral. Candelaria Jaquez, PT 05/06/2019 14:25 Cc: Referring Provider: LIZETH Sandoval ATP from [facility] Rehabilitation [facility] Fax: [phone] WHEELCHAIR PRESCRIPTION 05/06/2019 Tana Cavazos 1995 [address] [place] [address] (home) [phone] (work) Insurance Policy Number 1. [place] Medicaid ACO [id number] Medical/Surgical History: Current: There is no problem list on file for this patient. Relevant Diagnosis: Diagnosis: Sequelae of Traumatic Brain Injury; Neuromuscular Scoliosis; Wheelchair Dependent; Wheelchair Fitting ICD 10: S06.9X9S; M41.45; Z99.3; Z46.89 Length of Medical Necessity: Lifetime of equipment Therapeutic Results Expected: Accommodate Tana's fixed skeletal deformities so she can sit up in her wheelchair without skin breakdown or discomfort Functional Level: Total care. Dependent for transfers and all personal care. Client Measurements: A: Sitting surface to top of the head-n/a B: Sitting surface to acromion-20 C: Back of hip to popliteal surface-14.5 right 15 left D: Floor to popliteal surface-n/a E: Acromion to acromion-n/a F: Width of chest-13.5 Width at waist 13.25 G: Width of hips at widest point-16 HR: Sitting surface to axilla on left 15.5 HL: Chest depth 11 I: Sitting surface to elbow (90 degrees)-n/a Component Wheelchair Description Justification Motor Analyst, style and model USE EXISTING WHEELCHAIR Chair is only 3 years old. Frame Size Per patient measurements Back Seat Add solid seat escobar Her existing seating system is mounted directly to the frame. She needs a flat surface to mount the new seating system. Arm Style Front Rigging Drive Wheels Casters Wheel locks Cushion Other Positioning/Seating Intervention ?? Custom molded seat and back ?? Mounting hardware for custom seat and back ?? Add 1 to the product from the mold taken 05/06/2019 ?? Enhanced relief as marked on the mold. ?? Incontinent cover ?? Breckenridge headrest mounting plate ?? Breckenridge headrest mount ?? To accommodate .Tana's fixed skeletal deformities. ?? To mount the system to the chair ?? Per her femoral length ?? Skin protection over bony prominences. ?? To protect the foam from being saturated with urine. ?? To mount a headrest Legrest support panel To provide a surface that caregivers can put a pillow on top of to float her heels so her legs are supported and she does not get skin breakdown on her heels. Supplier: Assembly Instructions: Candelaria Jaquez, PT, DPT, ATP 05/13/2019 8:49 Cc: Referring Provider: Lorna Bal NP Funding at [facility] Plan ATTENDING PHYSICIAN: Your signature indicates you approve the therapy goals and plan of care outlined on this document dated 05/06/2019. It also indicates that you agree with the wheelchair prescription/recommendations. Thank you! Attending Physician Signature Date Candelaria Jaquez, PT 05/13/2019 10:28 documented in this encounter Plan of Treatment Not on file documented as of this encounter Visit Diagnoses Not on filedocumented in this encounter Care Teams Immunology Specialist Relationship Specialty Start Date End Date Naina Lindsey MD [address] [place] [address] PCP - General 02/13/15 documented as of this encounter
[2023-11-09 19:42] LABS: ALT 56 U/L (14-59); AST 20 U/L (15-37); Albumin 3.1 g/dL (3.4-5.0); Alkaline Phosphatase 213 U/L (46-116); Anion Gap 11.2 mmol/L (3-11); BUN 11 mg/dL (7-18); Bilirubin, Total 0.12 mg/dL (0.2-1.0); C-Reactive Protein 3.39 mg/dL (<or=0.5); CO2 26.8 mmol/L (21.0-32.0); CREATININE 0.4 mg/dL (0.55-1.02); Chloride 102 mmol/L (98-107); Estimated GFR 136.46 (mL/min/1.73m2); Glucose 114 mg/dL (74-106); Potassium 3.9 mmol/L (3.5-5.1); Sodium 140 mmol/L (136-145); Total Protein 7.7 g/dL (6.4-8.2)
[2023-11-09 19:45] LABS: Calcium 9.4 mg/dL (8.5-10.1)
== END 2023-11-09 18:10 | disposition home or self-care (01) ==
LOC: LBN 18:09
PROVIDERS: PCP Nurse Practitioner Family; Visit Provider Internal Medicine
DX: L02.91 Cutaneous abscess, unspecified (principal)
CPT/HCPCS: 80053; 85025; 86140

== ENCOUNTER 2023-11-16 16:52 | Outpatient (REF) | payer MEDICAID, SELFPAY ==
[2023-11-16 13:47] LABS: Abs Immature Grans 0.01 10^3/uL (0.0-0.06); Absolute Basophil Count 0.03 10^3/uL (0.0-0.2); Absolute Eosinophil Count 0.15 10^3/uL (0.0-0.7); Absolute Lymphocyte Count 1.31 10^3/uL (1.2-3.4); Absolute Monocyte Count 0.24 10^3/uL (0.1-0.8); Absolute Neutrophil Count 2.01 10^3/uL (1.2-6.7); Basophils % 0.8 %; HCT 38.3 % (36.0-46.0); HGB 12.2 g/dL (11.2-15.7); Immature Grans % 0.3 %; Lymphocytes % 34.9 %; MCH 27.9 pg (27.0-33.0); MCHC 31.9 % (32.0-36.0); MCV 87 fL (80-95); MPV 10.1 fL (8.0-11.0); Monocytes % 6.4 %; Neutrophils % 53.6 %; Platelet Count 319 10^3/uL (130-400); RBC 4.38 10^6/uL (3.93-5.22); RDW 14.4 % (11.7-14.6); RDW-SD 46.1 fL; WBC 3.75 10^3/uL (4.4-10.8)
[2023-11-16 14:36] LABS: ALT 75 U/L (14-59); AST 38 U/L (15-37); Albumin 3.1 g/dL (3.4-5.0); Alkaline Phosphatase 192 U/L (46-116); Anion Gap 8.1 mmol/L (3-11); BUN 13 mg/dL (7-18); C-Reactive Protein 1.57 mg/dL (<or=0.5); CO2 28.9 mmol/L (21.0-32.0); CREATININE 0.4 mg/dL (0.55-1.02); Calcium 8.9 mg/dL (8.5-10.1); Chloride 107 mmol/L (98-107); Estimated GFR 136.46 (mL/min/1.73m2); Glucose 108 mg/dL (74-106); Sodium 144 mmol/L (136-145); Total Protein 7.5 g/dL (6.4-8.2)
--- OUTSIDE RECORDS SUMMARY | 2023-11-16 16:54 | XMS_ITS | Clinical Summary ---
Author Organization [facility] Address [facility] [place] [address] Care Team Providers Care Curatorial Assistant Name Role Phone Lorna Bal APRN Primary Care Provider [phone] Allergies Active Allergy Reactions Criticality Noted Date Comments Cyclobenzaprine 01/28/2023 Other Reaction(s): Not available Doxycycline Other (See Comments) 08/05/2023 Cough, rash Fluoxetine Other (See Comments) High 02/28/2014 HIVES, HEART RACES Penicillins 06/24/2022 Transparent Dressings Itching,Dermatitis Medium 2014 Please use [id number] Medications Medication Sig Dispensed Refills Start Date [...] Team Description 11/09/2023 Telephone Infectious Disease at [place] [phone] Yas Tracy RN 10/28/2023 8:05 PM EDT - 11/03/2023 5:25 PM EDT Hospital Encounter Medical Specialites Unit Level 1 [place] [address] David, MD Damaris Arias, MD Vianey Zafar Muhammad, MD Ivan, Adrian M, MD Lurie, Jonathan D, MD Abscess; 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 Discharge Disposition: Home with [facility] 10/28/2023 Travel 10/28/2023 [place] [address] Neva Thorpe RN 10/28/2023 [place] [address] Neva Thorpe RN 10/28/2023 [place] [address] Neva Thorpe RN 10/28/2023 [place] [address] Neva Thorpe RN 10/27/2023 [place] [address] Hollie Ambriz MD 10/27/2023 [place] [address] Halima García 09/29/2023 10:30 AM EDT Office Visit Orthopaedics at [place] [phone] Chuckie Mayfield MD Chronic pain of right thumb; 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 09/29/2023 10:00 AM EDT Office [place] [address] Gaby Lake OT 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; Spasticity 09/29/2023 Travel 09/28/2023 Orders Only Infectious Disease at [place] [phone] 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; 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; Acute hematogenous osteomyelitis, unspecified site 09/24/2023 10:00 AM EDT Office [place] [address] George Tipton MD 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; senior care 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 09/24/2023 Travel 09/10/2023 [place] [address] Hollie Ambriz MD 08/24/2023 9:00 AM EDT TH Visit (TeleHealth) Gastroenterology at [place] [phone] Samantha Crystal, PUBLICATIONS WRITER Constipation, unspecified constipation type from Last 3 Months Immunizations Name Administration Dates Next Due Influenza (Novel G6D6-16) Injectable 02/25/2009 Influenza Trivalent w/Preservative 04/25/2011 Influenza [...] drink = 0.6 oz pur e alcohol) [facility] Utilities Answer Date Recorded In the past 12 months has th e electric, gas, oil, or water company threatened to shut off services in your [...] any time in the past 12 m [facility], were you homeless or living in a care home (including now)? No 10/29/2023 DH IPV Inpatient [...] EDT TH Visit (TeleHealth) [place] [phone] Lilli Joy APRN [facility] [place] [address] 12/03/2023 12:30 PM EDT Office [place] [address] [facility] INFECTIOUS DISEASE [place], [place] [phone] 12/03/2023 2:30 PM EDT [place] [address] [facility] [place] [address] Health Maintenance Due Date Last Done Comments HIV screen 2011 Hepatitis C Screening 2011 Hepatitis B vaccine (0-59 yrs) (1) 2012 Tdap adult 2012 Tetanus vaccine 2012 Covid-19 Vaccine ( - 2022-2 4 season) 2022 HPV test 2023 PAP Smear 2023 Influenza (Flu) vaccine (1 o f 1 - Influenza standard series) 12/27/2023 04/25/2011, 03/27/2009, 02/25/2009 Procedures Procedure Name Priority Date/Time Associated Diagnosis Comments LAB SCAN 11/16/2023 12:00 AM EDT LAB SCAN 11/16/2023 12:00 AM EDT LAB SCAN 11/09/2023 12:[address] PICC LINE: CONTACT VASCULAR ACCESS Routine [...] abscess from Last 3 Months Results * Scan Doc: Lab (11/16/2023 12:00 AM EDT) Only the most recent of5 resultswithin the time period is included. Narrative 11/16/2023 12:00 AM EDT Ordered by an unspecified provider. Scanning Provider MEDIA MGR SCAN EXT O RDR/RSLT * Place PICC Line: Contact Vascular Access Page [phone] Extremity to exclude: No restrictions; Is PICC [...] to the planned procedure. Hand Hygiene: The automotive technician did perform hand hygiene prior to line insertion. Catheter type: PICC Lot number: [id number] Procedure Technique: Skin was prepped with chlorhexidine. [...] Guidance (IV Team) (11/03/2023 11:19 AM EDT) [employer] WORKSTATION ID [id number] RAD Anatomical Region Laterality Modality N/A Radio [...] who have questions please contact the health career development facilitator that requested your imaging first. ? Electronically signed by: Deb Avery MD, [facility] ??([phone]), at 11/03/2023 11:55 AM Narrative 11/03/2023 11:55 [...] patients who have questions please contactthe health career development facilitator that requested your imaging first. Isaiah Samayoa MD IMG FLUORO ORDERABLE S [...] of6 resultswithin the time period is included. Pathologist [facility] CRP 62.8(H) <=4.9 mg/L [facility] Blood 11/02/2023 5:26 AM EDT 11/02/2023 5:44 AM EDT Narrative Resulting Agency Comment Spec In Lab Isaiah Samayoa MD CHEMISTRY ORDERABLES Performing Organization Address City/State/[facility] Co de Phone Number [facility] [place] [phone] * (ABNORMAL) Hemogram (11/02/2023 5:26 AM EDT) Only the most recent of5 resultswithin the time period is included. Pathologist [facility] WBC 7.5 4.0 - 9.5 x10(3)/[facility] LABORATORY RBC 3.89(L) 4.00 - 5.21 x10(6)/[facility] Hemoglobin 11.1(L) 11.7 - 15.5 g/dL [facility] Hematocrit 33.8(L) 35.7 - 45.8 % [facility] MCV 86.9 82.6 - 94.4 fL [facility] MCH 28.5 27.1 - 32.0 pg [facility] MCHC 32.8 31.7 - 35.0 g/dL [facility] Platelets 477(H) 145 - 357 x10(3)/[facility] LABORATORY RDWSD 45.1 37.0 - 46.0 fL [facility] RDWCV 14.3(H) 11.5 - 14.1 % [facility] MPV 9.1 7.6 - 12.9 fL [facility] nRBC % Auto 0.0 % [facility] nRBC Abs Auto 0.000 0.000 - 0.000 x10(3)/[facility] Blood 11/02/2023 5:26 AM EDT 11/02/2023 5:43 AM EDT Narrative Resulting Agency Comment Spec In Lab Isaiah Samayoa MD HEMATOLOGY ORDERABLE S [facility] [place] [address] * Differential, Automated (11/02/2023 5:26 AM EDT) Only the most recent of5 resultswithin the time period is included. Neutrophils % 69.0 % [facility] Neutr Abs (ANC) 5.16 1.70 - 6.10 x10(3)/[facility] Lymphocytes % 21.7 % [facility] Lymphocytes Abs 1.6 0.9 - 3.2 x10(3)/[facility] Monocytes % 6.8 % [facility] Monocyte Abs 0.5 0.3 - 0.9 x10(3)/[facility] Eosinophils % 1.6 % [facility] Eosinophils Abs 0.1 0.0 - 0.4 x10(3)/[facility] Basophils % 0.5 % [facility] Basophils Abs 0.0 0.0 - 0.1 x10(3)/[facility] LAB[facility] Immature Gran % 0.40 % [facility] Comment: Immature granulocytes(IG's)percentage and absolute count will include metamyelocytes, myelocytes, and promyelocytes. Blood smears from CBCs yielding IG's will be scanned manually for concordance. If this scan disagrees with the automated IG or if promyelocytes are noted, a manual differential will be performed. Debora Gran Abs 0.03 0.00 - 0.04 x10(3)/mcL [facility] Blood 11/02/2023 5:26 AM EDT 11/02/2023 5:43 AM EDT Narrative Resulting Agency Comment Spec In Lab Isaiah Samayoa MD HEMATOLOGY ORDERABLE S Performing Organization Address City/[facility]/ZIP Co de Phone Number [facility] [place] [address] * CK (11/02/2023 5:26 AM EDT) Only the most recent of2 resultswithin the time period is included. [facility] CK, Total 14 0 - 160 unit/L [facility] Blood 11/02/2023 5:26 AM EDT 11/02/2023 5:44 AM EDT Narrative Resulting Agency Comment Spec In Lab Isaiah Samayoa MD CHEMISTRY ORDERABLES Performing Organization Address [facility] Co de Phone Number [facility] [address] * (ABNORMAL) Comprehensive metabolic panel (non-fasting) (11/02/2023 5:26 AM EDT) Only the most recent of2 resultswithin the time period is included. [facility] Glucose Lvl 109 65 - 199 mg/dL [facility] Comment:Diabetes: >=200 mg/d L plus symptoms BUN 13 8 - 18 mg/dL [facility] Comment:result rechecked-mg Creatinine 0.27(L) 0.70 - 1.20 mg/dL [facility] Sodium 138 135 - 145 mmol/L [facility] Potassium 3.9 3.5 - 5.0 mmol/L [facility] Comment: Please note: ??Patients with WBC >100,000 may have falsely elevated Potassium levels. ??For accurate Potassium quantification in these patients send serum separator tube (gold top) for subsequent determinations. ??Contact the Clinical Chemistry Laboratory if there are any questions. Chloride 104 98 - 107 mmol/L [facility] CO2 21(L) 22 - 31 mmol/L [facility] Anion Gap 13 5 - 15 mmol/L [facility] Calcium 9.8 8.5 - 10.5 mg/dL [facility] Total Protein 7.2 6.1 - 8.0 g/dL [facility] Albumin 3.5 3.2 - 5.2 g/dL [facility] AST 13 0 - 30 unit/L [facility] ALT 27 0 - 30 unit/L [facility] Alk Phos 209(H) 35 - 105 unit/L [facility] Total Bilirubin <0.2(L) 0.2 - 1.3 mg/dL [facility] Estimated GFR 150 >=60 mL/min/1. 73 m?? [facility] Comment: This patient's estimated [...] In Lab Isaiah Samayoa MD CHEMISTRY ORDERABLES [facility] [place] [address] * XR Abdomen 1 view (Generic) (11/01/2023 10:14 PM EDT) WORKSTATION ID [id number] RAD Anatomical Region Laterality Modality Abdomen N/A [...] who have questions please contact the health career development facilitator that requested your imaging first. ? Electronically signed by: Marisela Estrella MD, [facility] ([phone]), at 11/02/2023 8:47 AM Narrative 11/02/2023 8:47 [...] patients who have questions please contactthe health career development facilitator that requested your imaging first. Electronically signed by: Marisela Estrella MD, [facility]([phone]), at 11/02/2023 8:47 AM Mindy Alexander Farzanafrance [place] IMG DX ORDERABLES * MRSA PCR Screen [place]/[facility] (10/31/2023 6:10 PM EDT) Pathologist [facility] MRSA Result Negative Negative [facility] MRSA Interp Methicillin-resist ant Staphylococcus aureus (MRSA) is NOT DETECTED The MRSA target DNA sequences (mec and SCC) were not detected within the acceptable ranges using the Xpert MRSA NxG on the GeneXpert Dx System (Cep[employer]otiant). This suggests the absence of MRSA in the patient specimen submitted for testing. This test is cleared by the U.S. Food and Drug Administration for clinical use and its performance characteristics have been verified by the [facility] at [facility]. This result does not rule out the presence of any other organisms. Rare false negative results may occur if MRSA is present at low concentrations with much higher concentrations of other organisms including MRSE or S. aureus with an empty SCC cassette. [facility] Comment: [VERIFIED DATE]11.01.23 Verified By:Marisela Jolly (Electronic Signature) Nasopharyngeal Swab 10/31/19 6:10 PM EDT 11/01/2023 8:24 AM EDT Comment:Specimen Type->Nasop haryngeal Swab Narrative Resulting Agency Comment Spec In Lab Isaiah Samayoa MD MICROBIOLOGY - GENER AL ORDERABLES Performing Organization Address City/[facility]/ZIP Co de Phone Number [facility] [place] [address] * (ABNORMAL) Sedimentation rate (10/31/2023 4:47 AM EDT) Only the most recent of4 resultswithin the time period is included. Sed Rate 113(H) 2 - 37 mm/hr [facility] Comment: Effective April 06, 2019 new capillary photometric technology has resulted in a change in reference ranges. It is recommended that each ESR result be reviewed with its own age appropriate reference range. Blood 10/31/2023 4:47 AM EDT 10/31/2023 4:55 AM EDT Narrative Resulting Agency Comment Spec In Lab Sharron Winters MD HEMATOLOGY ORDERABLE S Performing Organization Address [facility] Co de Phone Number [facility] [place] [address] * Magnesium (10/31/2023 4:47 AM EDT) Only the most recent of4 resultswithin the time period is included. Magnesium 0.86 0.69 - 1.07 mmol/L [facility] Blood 10/31/2023 4:47 AM EDT 10/31/2023 4:55 AM EDT Narrative Resulting Agency Comment Spec In Lab Sharron Winters MD CHEMISTRY ORDERABLES Performing Organization Address [facility] Co de Phone Number [facility] [place] [address] * (ABNORMAL) Basic Metabolic Panel (non-fasting) (10/31/2023 4:47 AM EDT) Only the most recent of4 resultswithin the time period is included. Glucose Lvl 120 65 - 199 mg/dL [facility] Comment:Diabetes: >=200 mg/d L plus symptoms BUN 8 8 - 18 mg/dL [facility] Creatinine 0.27(L) 0.70 - 1.20 mg/dL [facility] Sodium 140 135 - 145 mmol/L [facility] Potassium 3.8 3.5 - 5.0 mmol/L [facility] Comment: Please note: ??Patients with WBC >100,000 may have falsely elevated Potassium levels. ??For accurate Potassium quantification in these patients send serum separator tube (gold top) for subsequent determinations. ??Contact the Clinical Chemistry Laboratory if there are any questions. Chloride 106 98 - 107 mmol/L [facility] CO2 23 22 - 31 mmol/L [facility] Anion Gap 11 5 - 15 mmol/L [facility] Calcium 9.2 8.5 - 10.5 mg/dL [facility] Estimated GFR 150 >=60 mL/min/1. 73 m?? [facility] Comment: This patient's estimated [...] In Lab Sharron Winters MD CHEMISTRY ORDERABLES [facility] [place] [address] * IR All Drainage Procedures (10/30/2023 3:23 PM EDT) Anatomical Region Laterality Modality X-Ray Angiograph y Narrative 10/30/2023 3:27 PM EDT Table formatting from the original result was not included. Images from the original result were not included. IR PROCEDURE NOTE Procedure: Paraspinal drain placement. Indication for Procedure: Per Dr. Greer, Tanajohn Cavazos is a 28 y.o. female w/ [...] EDT) Anaerobic Culture No anaerobic organisms isolated [facility] Fluid 10/30/2023 3:02 PM EDT 10/30/2023 3:47 PM EDT Comment:Infected seroma/absc ess lower mid posterior presacral region. Fluid culture. Narrative Resulting Agency Comment Spec In Lab Andrade Melvin MD MICROBIOLOGY - GENER AL ORDERABLES Performing Organization Address [facility] Co de Phone Number [facility] [place] [address] * Body Fluid Culture, Aerobic (10/30/2023 3:02 PM EDT) Body Fluid Culture Rare mixed bacterial morphotypes suggestive of normal cutaneous zenon [facility] Gram Stain Many Neutrophils seen No microorganisms seen. [facility] Fluid 10/30/2023 3:02 PM EDT 10/30/2023 3:47 PM EDT Comment:Infected seroma/absc ess lower mid posterior presacral region. Fluid culture. Narrative Resulting Agency Comment Spec In Lab Andrade Melvin MD MICROBIOLOGY - GENER AL ORDERABLES Performing Organization Address City/[facility]/ZIP Co de Phone Number [facility] [place] [address] * POCT urine (10/29/2023 10:26 AM EDT) POC Urine HCG Negative POC Control Internal Controls Acceptable 10/29/2023 10:2 6 AM EDT Sharron Winters MD POINT OF CARE TEST O RDERABLES * Lactate, whole blood, send to lab ([facility]) (10/29/2023 8:37 AM EDT) Lactate WB 1.8 0.5 - 2.2 mmol/L [facility] Blood 10/29/2023 8:37 AM EDT 10/29/2023 8:47 AM EDT Narrative Resulting Agency Comment Spec In Lab Brennan Maldonado MD CHEMISTRY ORDERABLE S [facility] [address] * Phosphorus (10/29/2023 8:37 AM EDT) Only the most recent of2 resultswithin the time period is included. Phosphorus 3.6 2.5 - 4.5 mg/dL [facility] Blood 10/29/2023 8:37 AM EDT 10/29/2023 8:47 AM EDT Narrative Resulting Agency Comment Spec In Lab Brennan Maldonado MD CHEMISTRY ORDERABLE S [facility] [place] [address] * (ABNORMAL) Urinalysis Microscopic Exam (10/29/2023 2:33 AM EDT) RBC UA >100(H) 0 - 4 /HPF [facility] WBC UA 4 0 - 5 /HPF [facility] Squam Epith UA 4 <=4 /HPF [facility] Hyaline Cast UA <1 0 - 2 /LPF MAR Y [facility] Comment: Interpret results with caution, microscopic results are from suboptimal specimen volume Straight Catheter Urine 10/29/2023 2:33 AM EDT 10/29/2023 2:43 AM EDT Narrative Resulting Agency Comment Spec In Lab Sharron Winters MD URINE ORDERABLES [facility] [place] [address] * (ABNORMAL) Urinalysis with reflex Culture (10/29/2023 2:33 AM EDT) Glucose UA Negative Negative mg/dL [facility] Protein UA 30(A) Negative mg/dL [facility] Bilirubin UA Negative Negative mg/dL [facility] Comment: Clinical correlation required for positive Urine Bilirubin results as false positive may occur with some drugs and drug related products. If a false positive is suspected a serum total bilirubin should be considered if clinically indicated. Urobilinogen UA Normal Normal mg/dL [facility] pH UA 6.5 5.0 - 8.0 [facility] Blood UA Large(A) Negative mg/dL [facility] Ketones UA Negative Negative mg/dL [facility] Nitrite UA Negative Negative [facility] Leukocytes UA Negative Negative mcL [facility] Appearance UA Clear Clear [facility] Spec [place] UA >=1.030(A) 1.005 - 1.030 [facility] Color UA Yellow Yellow [facility] Culture Reflexed No MAR Y [facility] Straight Catheter Urine 10/29/2023 2:33 AM EDT 10/29/2023 2:43 AM EDT Narrative Resulting Agency Comment Spec In Lab Sharron Winters MD URINE ORDERABLES [facility] [place] [address] * CT Lumbar Spine w Contrast (10/28/2023 9:50 PM EDT) WORKSTATION ID [id number] RAD Anatomical Region Laterality Modality L-spine Computed [...] who have questions please contact the health career development facilitator that requested your imaging first. ? Electronically signed by: Enid Vargas MD, [facility] ([phone]), at 10/28/2023 10:17 PM Narrative 10/28/2023 10:17 [...] patients who have questions please contactthe health career development facilitator that requested your imaging first. 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
--- OUTSIDE RECORDS SUMMARY | 2023-11-16 16:54 | XMS_ITS | Data Portability ---
Author Organization [place] - [facility] Address [address] [place] [address] Assessment Encounter Date Assessment Date Assessment LastModified by Organization Details LastModified Time 04/24/2023 04/24/2023 The total time devoted to today's encounter, including both the xzzs-oy-tghe time with the patient and/or family/caregiv er and fnk-ekde-hc-fa ce time I personally spent is 48 minutes. Not available 04/24/2023 09:38:15 11/10/2023 11/10/2023 The total time devoted to today's encounter, including both the wxou-vv-tass time with the patient and/or family/caregiv er and njh-ogor-be-fa ce time I personally spent is 35 minutes. Hospital admission: 7.3.204 Hospital discharge 7.9.24. Chronic home care associate reach out 7.10.24 FU in office: 7.16.24 Complexity: high Follow-up in 6 weeks. Call or RTO sooner if needs arise. Not available 11/10/2023 10:35:50 Plan of Treatment Reminders Order Date Submit Date Provider Last Modified By Organization Details Last Modified Time Details Appointments Follow Up 2023 10:30A Julia MARTINEZ Not available Not available Not available Lab hepatitis panel (A+B+C), acute, serum 2022 023 [facility] (Registration ), [address] [place] [address] [place], [address], 04/25/2023 11:53:33 CMP, serum or plasma 2022 023 [facility] (Registration ), [address] [place] [address] , [place], [address], 04/24/2023 14:57:58 CBC w/ auto diff 2022 023 [facility] (Registration ), [address] [place] [address] [place], [address], 04/24/2023 14:43:55 C-reactiv e protein, quantitat brissa, serum or plasma [address] [facility] (Registration ), [address] [place] [address] [place], [address], 05/01/2023 11:12:20 ESR (erythroc yte sedimenta tion rate), blood [address] [facility] (Registration ), [address] [place] [address] [place], [address], 05/01/2023 11:12:20 Referral orthopedi c surgeon referral - 2nd time sending for spasms to the right wrist/ thumb. 2023 024 [facility], [address], [place], [address], 08/24/2023 10:27:47 Procedures None recorded. Surgeries None recorded. Imaging None recorded. Medication Orders Ensure Active High Protein oral liquid 2022 023 [facility], [place]-, [address] [place], [address], 04/24/2023 09:17:52 Debrox 6.5 % ear drops 2023 024 [facility] [place] [address] [place], [address], 11/10/2023 10:38:18 cholecalc iferol (vitamin D3) 125 mcg (5,000 unit) tablet 2023 024 [facility]-, [address] [place], [address], 11/10/2023 11:06:20 baclofen 15 mg tablet 2023 024 [facility]-, [address] [place], [address], 11/10/2023 10:38:17 Patient TargetsNo targets recorded. Patient Instructions Encounter Date Encounter Id Patient Instructions Last Modified By Organization Details Last Modified Time 04/24/2023 [id number] - Call Dr Augustin at [facility] - [place] [facility] [place] bowels that we discussed Not available 04/24/2023 09:34:29 Reason for Referral Orthopedic Surgeon Referral for Tetraplegia 2nd time sending for spasms to the right wrist/ thumb. 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 hand specialist for right thumb pain and contracture of hand Referring Physician: Lorna Martinez Family Medicine, Encounter Date: 07/28/2023 Results Created Date Observation Date Name Description Value Unit Range Abnormal Flag LastModifiedBy Organization Detail LastModifiedTime 04/03/2004/03/2023 COMPL ETE BLOOD COUNT W/DIF F WBC 6.00 10_3/ uL 4.4-10 .8 normal Not Available [address] [place], [address] 04/03/2023 11:18:43 04/03/20 23 04/03/2023 COMPL ETE BLOOD COUNT W/DIF F RBC 3.44 10_6/ uL 3.93-5 .22 low Not Available [address] [place], [address] 04/03/2023 11:18:43 04/03/20 23 04/03/2023 COMPL ETE BLOOD COUNT W/DIF F HGB 9.6 g/dL 11.2-1 5.7 low Not Available [address] [place], [address] 04/03/2023 11:18:43 04/03/20 23 04/03/2023 COMPL ETE BLOOD COUNT W/DIF F HCT 29.6 % 36.0-4 6.0 low Not Available [address] [place], [address] 04/03/2023 11:18:43 04/03/20 23 04/03/2023 COMPL ETE BLOOD COUNT W/DIF F MCV 86 fL 80-95 normal Not Available [address] [place], [address] 04/03/2023 11:18:43 04/03/20 23 04/03/2023 COMPL ETE BLOOD COUNT W/DIF F MCH 27.9 pg 27.0-3 3.0 normal Not Available [address] [place], [address] 04/03/2023 11:18:43 04/03/20 23 04/03/2023 COMPL ETE BLOOD COUNT W/DIF F MCHC 32.4 % 32.0-3 6.0 normal Not Available [address] [place], [address] 04/03/2023 11:18:43 04/03/20 23 04/03/2023 COMPL ETE BLOOD COUNT W/DIF F RDW 14.7 % 11.7-1 4.6 high Not Available [address] [place], [address] 04/03/2023 11:18:43 04/03/20 23 04/03/2023 COMPL ETE BLOOD COUNT W/DIF F platelet count 524 10_3/ uL 130-40 0 high Not Available [address] [place], [address] 04/03/2023 11:18:43 04/03/20 23 04/03/2023 COMPL ETE BLOOD COUNT W/DIF F MPV 9.7 fL 8.0-11 .0 normal Not Available [address] [place], [address] 04/03/2023 11:18:43 04/03/20 23 04/03/2023 COMPL ETE BLOOD COUNT W/DIF F neutrophils % 71.9 Not Available [address] [place], [address] 04/03/2023 11:18:43 04/03/20 23 04/03/2023 COMPL ETE BLOOD COUNT W/DIF F lymphocytes % 20.8 Not Available [address] [place], [address] 04/03/2023 11:18:43 04/03/20 23 04/03/2023 COMPL ETE BLOOD COUNT W/DIF F monocytes % 5.0 Not Available [address] [place], [address] 04/03/2023 11:18:43 04/03/20 23 04/03/2023 COMPL ETE BLOOD COUNT W/DIF F eosinophils % 1.5 Not Available [address] [place], [address] 04/03/2023 11:18:43 04/03/20 23 04/03/2023 COMPL ETE BLOOD COUNT W/DIF F basophils % 0.5 Not Available [address] [place], [address] 04/03/2023 11:18:43 04/03/20 23 04/03/2023 COMPL ETE BLOOD COUNT W/DIF F immature grans % 0.3 Not Available [address] [place], [address] 04/03/2023 11:18:43 04/03/20 23 04/03/2023 COMPL ETE BLOOD COUNT W/DIF F nucleated RBC 0.0 % 0.0-0. 3 normal Not Available [address] [place], [address] 04/03/2023 11:18:43 04/03/20 23 04/03/2023 COMPL ETE BLOOD COUNT W/DIF F absolute neutrophil count 4.31 10_3/ uL 1.2-6. 7 normal Not Available [address] [place], [address] 04/03/2023 11:18:43 04/03/20 23 04/03/2023 COMPL ETE BLOOD COUNT W/DIF F absolute lymphocyte count 1.25 10_3/ uL 1.2-3. 4 normal Not Available [address] [place], [address] 04/03/2023 11:18:43 04/03/20 23 04/03/2023 COMPL ETE BLOOD COUNT W/DIF F absolute monocyte count 0.30 10_3/ uL 0.1-0. 8 normal Not Available [address] [place], [address] 04/03/2023 11:18:43 04/03/20 23 04/03/2023 COMPL ETE BLOOD COUNT W/DIF F absolute eosinophil count 0.09 10_3/ uL 0.0-0. 7 normal Not Available [address] [place], [address] 04/03/2023 11:18:43 04/03/20 23 04/03/2023 COMPL ETE BLOOD COUNT W/DIF F absolute basophil count 0.03 10_3/ uL 0.0-0. 2 normal Not Available [address] [place], [address] 04/03/2023 11:18:43 04/03/20 23 04/03/2023 LIVER PANEL total protein 7.8 g/dL 6.4-8. 2 normal Not Available [address] [place], [address] 04/03/2023 11:30:47 04/03/2004/03/2023 LIVER PANEL albumin 3.3 g/dL 3.4-5. 0 low Not Available [address] [place], [address] 04/03/2023 11:30:47 04/03/20 23 04/03/2023 LIVER PANEL bilirubin, total 0.3 mg/dL 0.2-1. 0 normal Not Available [address] [place], [address] 04/03/2023 11:30:47 04/03/2004/03/2023 LIVER PANEL alk phos 365 U/L 46-116 high Not Available [address] [place], [address] 04/03/2023 11:30:47 04/03/2004/03/2023 LIVER PANEL AST 48 U/L 15-37 high Not Available [address] [place], [address] 04/03/2023 11:30:47 04/03/2004/03/2023 LIVER PANEL ALT 89 U/L 14-59 high Not Available [address], [address] 04/03/2023 11:30:47 04/03/2004/03/2023 LIVER PANEL bilirubin, conjugated 0.1 mg/dL 0.0-0. 2 normal Not Available [address] [place], [address] 04/03/2023 11:30:47 04/03/2004/03/2023 COMPR EHENS BRISSA METAB OLIC PANEL calcium 9.2 mg/dL 8.5-10 .1 normal Not Available [address] [place], [address] 04/03/2023 11:30:47 04/03/2004/03/2023 COMPR EHENS BRISSA METAB OLIC PANEL glucose 144 mg/dL 74-106 high Not Available [address] [place], [address] 04/03/2023 11:30:47 04/03/2004/03/2023 COMPR EHENS BRISSA METAB OLIC PANEL BUN 13 mg/dL 7-18 normal Not Available [address] [place], [address] 04/03/2023 11:30:47 04/03/2004/03/2023 COMPR EHENS BRISSA METAB OLIC PANEL creatinine 0.4 mg/dL 0.55-1 .02 low Not Available [address] [place], [address] 04/03/2023 11:30:47 04/03/20 23 04/03/2023 COMPR EHENS BRSISA METAB OLIC PANEL estimated GFR 137.31 mL/min /1.73m 2 Not Available [address] [place], [address] 04/03/2023 11:30:47 04/03/20 23 04/03/2023 COMPR EHENS BRISSA METAB OLIC PANEL sodium 139 mmol/ L 136-14 5 normal Not Available [address] [place], [address] 04/03/2023 11:30:47 04/03/20 23 04/03/2023 COMPR EHENS BRISSA METAB OLIC PANEL potassium 3.8 mmol/ L 3.5-5. 1 normal Not Available [address] [place], [address] 04/03/2023 11:30:47 04/03/20 23 04/03/2023 COMPR EHENS BRISSA METAB OLIC PANEL chloride 102 mmol/ L 98-107 normal Not Available [address] [place], [address] 04/03/2023 11:30:47 04/03/20 23 04/03/2023 COMPR EHENS BRISSA METAB OLIC PANEL CO2 24.5 mmol/ L 21.0-3 2.0 normal Not Available [address] [place], [address] 04/03/2023 11:30:47 04/03/20 23 04/03/2023 COMPR EHENS BRISSA METAB OLIC PANEL anion gap 12.5 mmol/ L 3-11 high Not Available [address] [place], [address] 04/03/2023 11:30:47 04/03/20 23 04/03/2023 CREAT INE KINAS E creatine kinase 45 U/L 26-192 normal Not Available [address] [place], [address] 04/03/2023 11:30:48 04/03/20 23 04/03/2023 C-MARIELOS CTIVE PROTE IN C-reactive protein 6.28 mg/dL 0.0-0. 3 high Not Available [address] [place], [address] 04/03/2023 11:30:48 04/03/20 23 04/03/2023 ESR ESR 55 mm/HR 0-20 high Not Available [address] [place], [address] 04/03/2023 11:37:48 04/10/20 23 04/10/2023 COMPR EHENS BRISSA METAB OLIC PANEL calcium 9.3 mg/dL 8.5-10 .1 normal Not Available [address] [place], [address] 04/10/2023 12:25:49 04/10/20 23 04/10/2023 COMPR EHENS BRISSA METAB OLIC PANEL glucose 90 mg/dL 74-106 normal Not Available [address] [place], [address] 04/10/2023 12:25:49 04/10/20 23 04/10/2023 COMPR EHENS BRISSA METAB OLIC PANEL BUN 7 mg/dL 7-18 normal Not Available [address] [place], [address] 04/10/2023 12:25:49 04/10/20 23 04/10/2023 COMPR EHENS BRISSA METAB OLIC PANEL creatinine 0.3 mg/dL 0.55-1 .02 low Not Available [address] [place], [address] 04/10/2023 12:25:49 04/10/20 23 04/10/2023 COMPR EHENS BRISSA METAB OLIC PANEL estimated GFR 147.17 mL/min /1.73m 2 Not Available [address] [place], [address] 04/10/2023 12:25:49 04/10/20 23 04/10/2023 COMPR EHENS BRISSA METAB OLIC PANEL total protein 7.5 g/dL 6.4-8. 2 normal Not Available [address] [place], [address] 04/10/2023 12:25:49 04/10/20 23 04/10/2023 COMPR EHENS BRISSA METAB OLIC PANEL albumin 3.0 g/dL 3.4-5. 0 low Not Available [address] [place], [address] 04/10/2023 12:25:49 04/10/20 23 04/10/2023 COMPR EHENS BRISSA METAB OLIC PANEL bilirubin, total 0.2 mg/dL 0.2-1. 0 normal Not Available [address] [place], [address] 04/10/2023 12:25:49 04/10/20 23 04/10/2023 COMPR EHENS BRISSA METAB OLIC PANEL alk phos 414 U/L 46-116 high Not Available [address] [place], [address] 04/10/2023 12:25:49 04/10/20 23 04/10/2023 COMPR EHENS BRISSA METAB OLIC PANEL sodium 138 mmol/ L 136-14 5 normal Not Available [address] [place], [address] 04/10/2023 12:25:49 04/10/20 23 04/10/2023 COMPR EHENS BRISSA METAB OLIC PANEL potassium 4.3 mmol/ L 3.5-5. 1 normal Not Available [address] [place], [address] 04/10/2023 12:25:49 04/10/20 23 04/10/2023 COMPR EHENS BRISSA METAB OLIC PANEL chloride 102 mmol/ L 98-107 normal Not Available [address] [place], [address] 04/10/2023 12:25:49 04/10/20 23 04/10/2023 COMPR EHENS BRISSA METAB OLIC PANEL CO2 24.7 mmol/ L 21.0-3 2.0 normal Not Available [address] [place], [address] 04/10/2023 12:25:49 04/10/20 23 04/10/2023 COMPR EHENS BRISSA METAB OLIC PANEL anion gap 11.3 mmol/ L 3-11 high Not Available [address] [place], [address] 04/10/2023 12:25:49 04/10/20 23 04/10/2023 COMPR EHENS BRISSA METAB OLIC PANEL AST 77 U/L 15-37 high Not Available [address] [place], [address] 04/10/2023 12:25:49 04/10/20 23 04/10/2023 COMPR EHENS BRISSA METAB OLIC PANEL ALT 137 U/L 14-59 high Not Available [address] [place], [address] 04/10/2023 12:25:49 04/10/20 23 04/10/2023 C-MARIELOS CTIVE PROTE IN C-reactive protein 9.51 mg/dL 0.0-0. 3 high Not Available [address] [place], [address] 04/10/2023 12:25:50 04/10/20 23 04/10/2023 C-MARIELOS CTIVE PROTE IN C-reactive protein 9.51 mg/dL 0.0-0. 3 high Not Available [address] [place], [address] 04/12/2023 01:17:45 04/24/20 23 04/24/2023 ESR ESR 53 mm/HR 0-20 high Not Available [address] [place], [address] 04/24/2023 14:34:51 04/24/20 23 04/24/2023 COMPL ETE BLOOD COUNT W/DIF F WBC 4.01 10_3/ uL 4.4-10 .8 low Not Available [address] [place], [address] 04/24/2023 14:43:55 04/24/20 23 04/24/2023 COMPL ETE BLOOD COUNT W/DIF F RBC 3.76 10_6/ uL 3.93-5 .22 low Not Available [address] [place], [address] 04/24/2023 14:43:55 04/24/20 23 04/24/2023 COMPL ETE BLOOD COUNT W/DIF F HGB 9.6 g/dL 11.2-1 5.7 low Not Available [address] [place], [address] 04/24/2023 14:43:55 04/24/20 23 04/24/2023 COMPL ETE BLOOD COUNT W/DIF F HCT 31.3 % 36.0-4 6.0 low Not Available [address] [place], [address] 04/24/2023 14:43:55 04/24/20 23 04/24/2023 COMPL ETE BLOOD COUNT W/DIF F MCV 83 fL 80-95 normal Not Available [address] [place], [address] 04/24/2023 14:43:55 04/24/20 23 04/24/2023 COMPL ETE BLOOD COUNT W/DIF F MCH 25.5 pg 27.0-3 3.0 low Not Available [address] [place], [address] 04/24/2023 14:43:55 04/24/20 23 04/24/2023 COMPL ETE BLOOD COUNT W/DIF F MCHC 30.7 % 32.0-3 6.0 low Not Available [address] [place], [address] 04/24/2023 14:43:55 04/24/20 23 04/24/2023 COMPL ETE BLOOD COUNT W/DIF F RDW 16.9 % 11.7-1 4.6 high Not Available [address] [place], [address] 04/24/2023 14:43:55 04/24/20 23 04/24/2023 COMPL ETE BLOOD COUNT W/DIF F platelet count 423 10_3/ uL 130-40 0 high Not Available [address] [place], [address] 04/24/2023 14:43:55 04/24/20 23 04/24/2023 COMPL ETE BLOOD COUNT W/DIF F MPV 9.9 fL 8.0-11 .0 normal Not Available [address] [place], [address] 04/24/2023 14:43:55 04/24/20 23 04/24/2023 COMPL ETE BLOOD COUNT W/DIF F neutrophils % 66.4 Not Available [address] [place], [address] 04/24/2023 14:43:55 04/24/20 23 04/24/2023 COMPL ETE BLOOD COUNT W/DIF F lymphocytes % 24.9 Not Available [address] [place], [address] 04/24/2023 14:43:55 04/24/20 23 04/24/2023 COMPL ETE BLOOD COUNT W/DIF F monocytes % 6.5 Not Available [address] [place], [address] 04/24/2023 14:43:55 04/24/20 23 04/24/2023 COMPL ETE BLOOD COUNT W/DIF F eosinophils % 1.5 Not Available [address] [place], [address] 04/24/2023 14:43:55 04/24/20 23 04/24/2023 COMPL ETE BLOOD COUNT W/DIF F basophils % 0.7 Not Available [address] [place], [address] 04/24/2023 14:43:55 04/24/20 23 04/24/2023 COMPL ETE BLOOD COUNT W/DIF F immature grans % 0.0 Not Available [address] [place], [address] 04/24/2023 14:43:55 04/24/20 23 04/24/2023 COMPL ETE BLOOD COUNT W/DIF F nucleated RBC 0.0 % 0.0-0. 3 normal Not Available [address] [place], [address] 04/24/2023 14:43:55 04/24/20 23 04/24/2023 COMPL ETE BLOOD COUNT W/DIF F absolute neutrophil count 2.66 10_3/ uL 1.2-6. 7 normal Not Available [address] [place], [address] 04/24/2023 14:43:55 04/24/20 23 04/24/2023 COMPL ETE BLOOD COUNT W/DIF F absolute lymphocyte count 1.00 10_3/ uL 1.2-3. 4 low Not Available [address] [place], [address] 04/24/2023 14:43:55 04/24/20 23 04/24/2023 COMPL ETE BLOOD COUNT W/DIF F absolute monocyte count 0.26 10_3/ uL 0.1-0. 8 normal Not Available [address] [place], [address] 04/24/2023 14:43:55 04/24/20 23 04/24/2023 COMPL ETE BLOOD COUNT W/DIF F absolute eosinophil count 0.06 10_3/ uL 0.0-0. 7 normal Not Available [address] [place], [address] 04/24/2023 14:43:55 04/24/20 23 04/24/2023 COMPL ETE BLOOD COUNT W/DIF F absolute basophil count 0.03 10_3/ uL 0.0-0. 2 normal Not Available [address] [place], [address] 04/24/2023 14:43:55 04/24/20 23 04/24/2023 COMPR EHENS BRISSA METAB OLIC PANEL calcium 9.5 mg/dL 8.5-10 .1 normal Not Available [address] [place], [address] 04/24/2023 14:57:58 04/24/20 23 04/24/2023 COMPR EHENS BRISSA METAB OLIC PANEL glucose 97 mg/dL 74-106 normal Not Available [facility] [address] [place], [address] 04/24/2023 14:57:58 04/24/20 23 04/24/2023 COMPR EHENS BRISSA METAB OLIC PANEL BUN 11 mg/dL 7-18 normal Not Available [facility] [address] [place], [address] 04/24/2023 14:57:58 04/24/20 23 04/24/2023 COMPR EHENS BRISSA METAB OLIC PANEL creatinine 0.4 mg/dL 0.55-1 .02 low Not Available [address] [place], [address] 04/24/2023 14:57:58 04/24/20 23 04/24/2023 COMPR EHENS BRISSA METAB OLIC PANEL estimated GFR 137.31 mL/min /1.73m 2 Not Available [address] [place], [address] 04/24/2023 14:57:58 04/24/20 23 04/24/2023 COMPR EHENS BRISSA METAB OLIC PANEL total protein 8.7 g/dL 6.4-8. 2 high Not Available [address] [place], [address] 04/24/2023 14:57:58 04/24/20 23 04/24/2023 COMPR EHENS BRISSA METAB OLIC PANEL albumin 3.2 g/dL 3.4-5. 0 low Not Available [address] [place], [address] 04/24/2023 14:57:58 04/24/20 23 04/24/2023 COMPR EHENS BRISSA METAB OLIC PANEL bilirubin, total 0.1 mg/dL 0.2-1. 0 low Not Available [address] [place], [address] 04/24/2023 14:57:58 04/24/20 23 04/24/2023 COMPR EHENS BRISSA METAB OLIC PANEL alk phos 256 U/L 46-116 high Not Available [address] [place], [address] 04/24/2023 14:57:58 04/24/20 23 04/24/2023 COMPR EHENS BRISSA METAB OLIC PANEL sodium 140 mmol/ L 136-14 5 normal Not Available [address] [place], [address] 04/24/2023 14:57:58 04/24/20 23 04/24/2023 COMPR EHENS BRISSA METAB OLIC PANEL potassium 3.8 mmol/ L 3.5-5. 1 normal Not Available [address] [place], [address] 04/24/2023 14:57:58 04/24/20 23 04/24/2023 COMPR EHENS BRISSA METAB OLIC PANEL chloride 102 mmol/ L 98-107 normal Not Available [address] [place], [address] 04/24/2023 14:57:58 04/24/20 23 04/24/2023 COMPR EHENS BRISSA METAB OLIC PANEL CO2 27.8 mmol/ L 21.0-3 2.0 normal Not Available [address] [place], [address] 04/24/2023 14:57:58 04/24/2004/24/2023 COMPR EHENS BRISSA METAB OLIC PANEL anion gap 10.2 mmol/ L 3-11 normal Not Available [address] [place], [address] 04/24/2023 14:57:58 04/24/2004/24/2023 COMPR EHENS BRISSA METAB OLIC PANEL AST 30 U/L 15-37 normal Not Available [address], [address] 04/24/2023 14:57:58 04/24/2004/24/2023 COMPR EHENS BRISSA METAB OLIC PANEL ALT 34 U/L 14-59 normal Not Available [address], [address] 04/24/2023 14:57:58 04/24/2004/24/2023 C-MARIELOS CTIVE PROTE IN C-reactive protein 5.46 mg/dL 0.0-0. 3 high Not Available [address] [place], [address] 04/24/2023 14:57:59 04/24/2004/24/2023 ACUTE HEPAT ITIS PROFI LE hepatitis B surface Ag Negati ve negati ve Not Available [address] [place], [address] 04/25/2023 11:53:33 04/24/20 23 04/24/2023 ACUTE HEPAT ITIS PROFI LE hepatitis C Ab W rflx HCV PCR Negati ve negati ve Not Available [address] [place], [address] 04/25/2023 11:53:33 04/24/20 23 04/24/2023 ACUTE HEPAT ITIS PROFI LE hepatitis A antibody IgM Negati ve negati ve Not Available [address] [place], [address] 04/25/2023 11:53:33 04/24/20 23 04/24/2023 ACUTE HEPAT ITIS PROFI LE hepatitis B core antibody Negati ve negati ve Not Available [address] [place], [address] 04/25/2023 11:53:33 05/01/19 24 05/01/2023 fecal occul t blood , stool Occult Blood negati ve Not Available [address], [address], 05/01/2023 16:26:46 05/14/19 24 05/14/2023 COMPL ETE BLOOD COUNT W/DIF F WBC 3.61 10_3/ uL 4.4-10 .8 low Not Available [address] [place], [address] 05/14/2023 12:56:33 05/14/19 24 05/14/2023 COMPL ETE BLOOD COUNT W/DIF F RBC 4.26 10_6/ uL 3.93-5 .22 normal Not Available [address] [place], [address] 05/14/2023 12:56:33 05/14/19 24 05/14/2023 COMPL ETE BLOOD COUNT W/DIF F HGB 10.4 g/dL 11.2-1 5.7 low Not Available [address] [place], [address] 05/14/2023 12:56:33 05/14/19 24 05/14/2023 COMPL ETE BLOOD COUNT W/DIF F HCT 34.3 % 36.0-4 6.0 low Not Available [address] [place], [address] 05/14/2023 12:56:33 05/14/19 24 05/14/2023 COMPL ETE BLOOD COUNT W/DIF F MCV 81 fL 80-95 normal Not Available [address], [address] 05/14/2023 12:56:33 05/14/19 24 05/14/2023 COMPL ETE BLOOD COUNT W/DIF F MCH 24.4 pg 27.0-3 3.0 low Not Available [address] [place], [address] 05/14/2023 12:56:33 05/14/19 24 05/14/2023 COMPL ETE BLOOD COUNT W/DIF F MCHC 30.3 % 32.0-3 6.0 low Not Available [address] [place], [address] 05/14/2023 12:56:33 05/14/19 24 05/14/2023 COMPL ETE BLOOD COUNT W/DIF F RDW 17.8 % 11.7-1 4.6 high Not Available [address] [place], [address] 05/14/2023 12:56:33 05/14/19 24 05/14/2023 COMPL ETE BLOOD COUNT W/DIF F platelet count 351 10_3/ uL 130-40 0 normal Not Available [address] [place], [address] 05/14/2023 12:56:33 05/14/19 24 05/14/2023 COMPL ETE BLOOD COUNT W/DIF F MPV 9.6 fL 8.0-11 .0 normal Not Available [address] [place], [address] 05/14/2023 12:56:33 05/14/19 24 05/14/2023 COMPL ETE BLOOD COUNT W/DIF F neutrophils % 55.3 Not Available [address] [place], [address] 05/14/2023 12:56:33 05/14/19 24 05/14/2023 COMPL ETE BLOOD COUNT W/DIF F lymphocytes % 36.6 Not Available [address] [place], [address] 05/14/2023 12:56:33 05/14/19 24 05/14/2023 COMPL ETE BLOOD COUNT W/DIF F monocytes % 5.3 Not Available [address] [place], [address] 05/14/2023 12:56:33 05/14/19 24 05/14/2023 COMPL ETE BLOOD COUNT W/DIF F eosinophils % 1.9 Not Available [address] [place], [address] 05/14/2023 12:56:33 05/14/19 24 05/14/2023 COMPL ETE BLOOD COUNT W/DIF F basophils % 0.6 Not Available [address] [place], [address] 05/14/2023 12:56:33 05/14/19 24 05/14/2023 COMPL ETE BLOOD COUNT W/DIF F immature grans % 0.3 Not Available [address] [place] [place], [address] 05/14/2023 12:56:33 05/14/19 24 05/14/2023 COMPL ETE BLOOD COUNT W/DIF F nucleated RBC 0.0 % 0.0-0. 3 normal Not Available [address] [place], [address] 05/14/2023 12:56:33 05/14/19 24 05/14/2023 COMPL ETE BLOOD COUNT W/DIF F absolute neutrophil count 2.00 10_3/ uL 1.2-6. 7 normal Not Available [address] [place], [address] 05/14/2023 12:56:33 05/14/19 24 05/14/2023 COMPL ETE BLOOD COUNT W/DIF F absolute lymphocyte count 1.32 10_3/ uL 1.2-3. 4 normal Not Available [address] [place], [address] 05/14/2023 12:56:33 05/14/19 24 05/14/2023 COMPL ETE BLOOD COUNT W/DIF F absolute monocyte count 0.19 10_3/ uL 0.1-0. 8 normal Not Available [address] [place], [address] 05/14/2023 12:56:33 05/14/19 24 05/14/2023 COMPL ETE BLOOD COUNT W/DIF F absolute eosinophil count 0.07 10_3/ uL 0.0-0. 7 normal Not Available [address] [place], [address] 05/14/2023 12:56:33 05/14/19 24 05/14/2023 COMPL ETE BLOOD COUNT W/DIF F absolute basophil count 0.02 10_3/ uL 0.0-0. 2 normal Not Available [address] [place], [address] 05/14/2023 12:56:33 05/14/19 24 05/14/2023 ESR ESR 67 mm/HR 0-20 high Not Available [address] [place], [address] 05/14/2023 12:56:35 05/14/19 24 05/14/2023 COMPR EHENS BRISSA METAB OLIC PANEL calcium 9.4 mg/dL 8.5-10 .1 normal Not Available [address] [place], [address] 05/14/2023 13:06:39 05/14/19 24 05/14/2023 COMPR EHENS BRISSA METAB OLIC PANEL glucose 90 mg/dL 74-106 normal Not Available [address] [place], [address] 05/14/2023 13:06:39 05/14/19 24 05/14/2023 COMPR EHENS BRISSA METAB OLIC PANEL BUN 13 mg/dL 7-18 normal Not Available [address], [address] 05/14/2023 13:06:39 05/14/19 24 05/14/2023 COMPR EHENS BRISSA METAB OLIC PANEL creatinine 0.4 mg/dL 0.55-1 .02 low Not Available [address] [place], [address] 05/14/2023 13:06:39 05/14/19 24 05/14/2023 COMPR EHENS BRISSA METAB OLIC PANEL estimated GFR 137.31 mL/min /1.73m 2 Not Available [address] [place], [address] 05/14/2023 13:06:39 05/14/19 24 05/14/2023 COMPR EHENS BRISSA METAB OLIC PANEL total protein 7.8 g/dL 6.4-8. 2 normal Not Available [address] [place], [address] 05/14/2023 13:06:39 05/14/19 24 05/14/2023 COMPR EHENS BRISSA METAB OLIC PANEL albumin 3.3 g/dL 3.4-5. 0 low Not Available [address] [place], [address] 05/14/2023 13:06:39 05/14/19 24 05/14/2023 COMPR EHENS BRISSA METAB OLIC PANEL bilirubin, total 0.2 mg/dL 0.2-1. 0 normal Not Available [address] [place], [address] 05/14/2023 13:06:39 05/14/19 24 05/14/2023 COMPR EHENS BRISSA METAB OLIC PANEL alk phos 283 U/L 46-116 high Not Available [address], [address] 05/14/2023 13:06:39 05/14/19 24 05/14/2023 COMPR EHENS BRISSA METAB OLIC PANEL sodium 140 mmol/ L 136-14 5 normal Not Available [address] [place], [address] 05/14/2023 13:06:39 05/14/19 24 05/14/2023 COMPR EHENS BRISSA METAB OLIC PANEL potassium 4.1 mmol/ L 3.5-5. 1 normal Not Available [address] [place], [address] 05/14/2023 13:06:39 05/14/19 24 05/14/2023 COMPR EHENS BRISSA METAB OLIC PANEL chloride 102 mmol/ L 98-107 normal Not Available [address] [place], [address] 05/14/2023 13:06:39 05/14/19 24 05/14/2023 COMPR EHENS BRISSA METAB OLIC PANEL CO2 27.4 mmol/ L 21.0-3 2.0 normal Not Available [address] [place], [address] 05/14/2023 13:06:39 05/14/19 24 05/14/2023 COMPR EHENS BRISSA METAB OLIC PANEL anion gap 10.6 mmol/ L 3-11 normal Not Available [address] [place], [address] 05/14/2023 13:06:39 05/14/19 24 05/14/2023 COMPR EHENS BRISSA METAB OLIC PANEL AST 35 U/L 15-37 normal Not Available [address] [place], [address] 05/14/2023 13:06:39 05/14/19 24 05/14/2023 COMPR EHENS BRISSA METAB OLIC PANEL ALT 64 U/L 14-59 high Not Available [address] [place], [address] 05/14/2023 13:06:39 05/14/19 24 05/14/2023 CREAT INE KINAS E creatine kinase 21 U/L 26-192 low Not Available [address] [place], [address] 05/14/2023 13:06:43 05/14/19 24 05/14/2023 C-MARIELOS CTIVE PROTE IN C-reactive protein 3.60 mg/dL 0.0-0. 3 high Not Available [address] [place], [address] 05/14/2023 13:06:43 06/17/19 24 06/17/2023 COMPL ETE BLOOD COUNT W/DIF F WBC 4.17 10_3/ uL 4.4-10 .8 low Not Available [address] [place], [address] 06/17/2023 13:58:18 06/17/19 24 06/17/2023 COMPL ETE BLOOD COUNT W/DIF F RBC 4.90 10_6/ uL 3.93-5 .22 normal Not Available [address] [place], [address] 06/17/2023 13:58:18 06/17/19 24 06/17/2023 COMPL ETE BLOOD COUNT W/DIF F HGB 12.1 g/dL 11.2-1 5.7 normal Not Available [address] [place], [address] 06/17/2023 13:58:18 06/17/19 24 06/17/2023 COMPL ETE BLOOD COUNT W/DIF F HCT 38.4 % 36.0-4 6.0 normal Not Available [address] [place], [address] 06/17/2023 13:58:18 06/17/19 24 06/17/2023 COMPL ETE BLOOD COUNT W/DIF F MCV 78 fL 80-95 low Not Available [address] [place], [address] 06/17/2023 13:58:18 06/17/19 24 06/17/2023 COMPL ETE BLOOD COUNT W/DIF F MCH 24.7 pg 27.0-3 3.0 low Not Available [address] [place], [address] 06/17/2023 13:58:18 06/17/19 24 06/17/2023 COMPL ETE BLOOD COUNT W/DIF F MCHC 31.5 % 32.0-3 6.0 low Not Available [address] [place], [address] 06/17/2023 13:58:18 06/17/19 24 06/17/2023 COMPL ETE BLOOD COUNT W/DIF F RDW 20.3 % 11.7-1 4.6 high Not Available [address] [place], [address] 06/17/2023 13:58:18 06/17/19 24 06/17/2023 COMPL ETE BLOOD COUNT W/DIF F platelet count 325 10_3/ uL 130-40 0 normal Not Available [address] [place], [address] 06/17/2023 13:58:18 06/17/19 24 06/17/2023 COMPL ETE BLOOD COUNT W/DIF F MPV 10.1 fL 8.0-11 .0 normal Not Available [address] [place], [address] 06/17/2023 13:58:18 06/17/19 24 06/17/2023 COMPL ETE BLOOD COUNT W/DIF F neutrophils % 58.2 Not Available [address] [place], [address] 06/17/2023 13:58:18 06/17/19 24 06/17/2023 COMPL ETE BLOOD COUNT W/DIF F lymphocytes % 32.1 Not Available [address] [place], [address] 06/17/2023 13:58:18 06/17/19 24 06/17/2023 COMPL ETE BLOOD COUNT W/DIF F monocytes % 7.4 Not Available [address] [place], [address] 06/17/2023 13:58:18 06/17/19 24 06/17/2023 COMPL ETE BLOOD COUNT W/DIF F eosinophils % 1.4 Not Available [address] [place], [address] 06/17/2023 13:58:18 06/17/19 24 06/17/2023 COMPL ETE BLOOD COUNT W/DIF F basophils % 0.7 Not Available [address] [place], [address] 06/17/2023 13:58:18 06/17/19 24 06/17/2023 COMPL ETE BLOOD COUNT W/DIF F immature grans % 0.2 Not Available [address] [place], [address] 06/17/2023 13:58:18 06/17/19 24 06/17/2023 COMPL ETE BLOOD COUNT W/DIF F nucleated RBC 0.0 % 0.0-0. 3 normal Not Available [address] [place], [address] 06/17/2023 13:58:18 06/17/19 24 06/17/2023 COMPL ETE BLOOD COUNT W/DIF F absolute neutrophil count 2.43 10_3/ uL 1.2-6. 7 normal Not Available [address] [place], [address] 06/17/2023 13:58:18 06/17/19 24 06/17/2023 COMPL ETE BLOOD COUNT W/DIF F absolute lymphocyte count 1.34 10_3/ uL 1.2-3. 4 normal Not Available [address] [place], [address] 06/17/2023 13:58:18 06/17/19 24 06/17/2023 COMPL ETE BLOOD COUNT W/DIF F absolute monocyte count 0.31 10_3/ uL 0.1-0. 8 normal Not Available [address] [place], [address] 06/17/2023 13:58:18 06/17/19 24 06/17/2023 COMPL ETE BLOOD COUNT W/DIF F absolute eosinophil count 0.06 10_3/ uL 0.0-0. 7 normal Not Available [address] [place], [address] 06/17/2023 13:58:18 06/17/19 24 06/17/2023 COMPL ETE BLOOD COUNT W/DIF F absolute basophil count 0.03 10_3/ uL 0.0-0. 2 normal Not Available [address] [place], [address] 06/17/2023 13:58:18 06/17/19 24 06/17/2023 COMPL ETE BLOOD COUNT W/DIF F diff comment RBC Morph Review ed Not Available [address] [place], [address] 06/17/2023 13:58:18 06/17/19 24 06/17/2023 COMPL ETE BLOOD COUNT W/DIF F RBC morphology See Below Not Available [address] [place], [address] 06/17/2023 13:58:18 06/17/19 24 06/17/2023 COMPL ETE BLOOD COUNT W/DIF F anisocytosis 1+ Not Available [address] [place], [address] 06/17/2023 13:58:18 06/17/19 24 06/17/2023 COMPL ETE BLOOD COUNT W/DIF F microcytosis 1+ Not Available [address] [place], [address] 06/17/2023 13:58:18 06/17/19 24 06/17/2023 COMPL ETE BLOOD COUNT W/DIF F poikilocytes 1+ Not Available [address] [place], [address] 06/17/2023 13:58:18 07/01/19 24 07/01/2023 COMPR EHENS BRISSA METAB OLIC PANEL calcium 9.5 mg/dL 8.5-10 .1 normal Not Available [address] [place], [address] 07/01/2023 16:12:34 07/01/19 24 07/01/2023 COMPR EHENS BRISSA METAB OLIC PANEL glucose 102 mg/dL 74-106 normal Not Available [address], [address] 07/01/2023 16:12:34 07/01/19 24 07/01/2023 COMPR EHENS BRISSA METAB OLIC PANEL BUN 13 mg/dL 7-18 normal Not Available [address], [address] 07/01/2023 16:12:34 07/01/19 24 07/01/2023 COMPR EHENS BRISSA METAB OLIC PANEL creatinine 0.4 mg/dL 0.55-1 .02 low Not Available [address] [place], [address] 07/01/2023 16:12:34 07/01/19 24 07/01/2023 COMPR EHENS BRISSA METAB OLIC PANEL estimated GFR 136.46 mL/min /1.73m 2 Not Available [address] [place], [address] 07/01/2023 16:12:34 07/01/19 24 07/01/2023 COMPR EHENS BRISSA METAB OLIC PANEL total protein 7.9 g/dL 6.4-8. 2 normal Not Available [address] [place], [address] 07/01/2023 16:12:34 07/01/19 24 07/01/2023 COMPR EHENS BRISSA METAB OLIC PANEL albumin 3.6 g/dL 3.4-5. 0 normal Not Available [address] [place], [address] 07/01/2023 16:12:34 07/01/19 24 07/01/2023 COMPR EHENS BRISSA METAB OLIC PANEL bilirubin, total 0.1 mg/dL 0.2-1. 0 low Not Available [address] [place], [address] 07/01/2023 16:12:34 07/01/19 24 07/01/2023 COMPR EHENS BRISSA METAB OLIC PANEL alk phos 233 U/L 46-116 high Not Available [address], [address] 07/01/2023 16:12:34 07/01/19 24 07/01/2023 COMPR EHENS BRISSA METAB OLIC PANEL sodium 142 mmol/ L 136-14 5 normal Not Available [address] [place], [address] 07/01/2023 16:12:34 07/01/19 24 07/01/2023 COMPR EHENS BRISSA METAB OLIC PANEL potassium 4.0 mmol/ L 3.5-5. 1 normal Not Available [address] [place], [address] 07/01/2023 16:12:34 07/01/19 24 07/01/2023 COMPR EHENS BRISSA METAB OLIC PANEL chloride 104 mmol/ L 98-107 normal Not Available [address] [place], [address] 07/01/2023 16:12:34 07/01/19 24 07/01/2023 COMPR EHENS BRISSA METAB OLIC PANEL CO2 26.4 mmol/ L 21.0-3 2.0 normal Not Available [address] [place], [address] 07/01/2023 16:12:34 07/01/19 24 07/01/2023 COMPR EHENS BRISSA METAB OLIC PANEL anion gap 11.6 mmol/ L 3-11 high Not Available [address] [place], [address] 07/01/2023 16:12:34 07/01/19 24 07/01/2023 COMPR EHENS BRISSA METAB OLIC PANEL AST 27 U/L 15-37 normal Not Available [address], [address] 07/01/2023 16:12:34 07/01/19 24 07/01/2023 COMPR EHENS BRISSA METAB OLIC PANEL ALT 70 U/L 14-59 high Not Available [address], [address] 07/01/2023 16:12:34 07/01/19 24 07/01/2023 IRON/ IBCT iron 42 ug/dL 50-170 low Not Available [address] [place], [address] 07/01/2023 16:36:37 07/01/19 24 07/01/2023 IRON/ IBCT total iron binding capacity 403 ug/dL 250-45 0 normal Not Available [address] [place], [address] 07/01/2023 16:36:37 07/01/19 24 07/01/2023 IRON/ IBCT transferrin sat 10 % 15-50 low Not Available [address] [place], [address] 07/01/2023 16:36:37 07/01/19 24 07/02/2023 TISSU E TRANS GLUTA YASH E IGA tissue transglutami nase IgA <4.0 cu <20.0 Not Available [address] [place], [address] 07/02/2023 11:39:19 07/01/19 24 07/02/2023 IGG IgG 1631 mg/dL 610-16 16 abnormal Not Available [address] [place], [address] 07/02/2023 15:55:58 07/01/19 24 07/02/2023 IGA IgA 284 mg/dL 85-499 Not Available [address] [place], [address] 07/02/2023 15:55:58 07/29/19 24 07/29/2023 VITAM IN D 25 TOTAL vitamin D 25 total 39.4 NG/mL 30-100 normal Not Available [address] [place], [address] 07/29/2023 13:31:45 10/28/19 24 10/28/2023 COMPL ETE BLOOD COUNT W/DIF F WBC 7.24 10_3/ uL 4.4-10 .8 normal Not Available [address] [place], [address] 10/28/2023 13:08:06 10/28/19 24 10/28/2023 COMPL ETE BLOOD COUNT W/DIF F RBC 4.41 10_6/ uL 3.93-5 .22 normal Not Available [address] [place], [address] 10/28/2023 13:08:06 10/28/19 24 10/28/2023 COMPL ETE BLOOD COUNT W/DIF F HGB 12.5 g/dL 11.2-1 5.7 normal Not Available [address] [place], [address] 10/28/2023 13:08:06 10/28/19 24 10/28/2023 COMPL ETE BLOOD COUNT W/DIF F HCT 38.8 % 36.0-4 6.0 normal Not Available [address] [place], [address] 10/28/2023 13:08:06 10/28/19 24 10/28/2023 COMPL ETE BLOOD COUNT W/DIF F MCV 88 fL 80-95 normal Not Available [address] [place], [address] 10/28/2023 13:08:06 10/28/19 24 10/28/2023 COMPL ETE BLOOD COUNT W/DIF F MCH 28.3 pg 27.0-3 3.0 normal Not Available [address] [place], [address] 10/28/2023 13:08:06 10/28/19 24 10/28/2023 COMPL ETE BLOOD COUNT W/DIF F MCHC 32.2 % 32.0-3 6.0 normal Not Available [address] [place], [address] 10/28/2023 13:08:06 10/28/19 24 10/28/2023 COMPL ETE BLOOD COUNT W/DIF F RDW 14.3 % 11.7-1 4.6 normal Not Available [address] [place], [address] 10/28/2023 13:08:06 10/28/19 24 10/28/2023 COMPL ETE BLOOD COUNT W/DIF F platelet count 482 10_3/ uL 130-40 0 high Not Available [address] [place], [address] 10/28/2023 13:08:06 10/28/19 24 10/28/2023 COMPL ETE BLOOD COUNT W/DIF F MPV 9.8 fL 8.0-11 .0 normal Not Available [address] [place], [address] 10/28/2023 13:08:06 10/28/19 24 10/28/2023 COMPL ETE BLOOD COUNT W/DIF F neutrophils % 71.3 % Not Available [address] [place], [address] 10/28/2023 13:08:06 10/28/19 24 10/28/2023 COMPL ETE BLOOD COUNT W/DIF F lymphocytes % 21.0 % Not Available [address] [place], [address] 10/28/2023 13:08:06 10/28/19 24 10/28/2023 COMPL ETE BLOOD COUNT W/DIF F monocytes % 5.4 % Not Available [address] [place], [address] 10/28/2023 13:08:06 10/28/19 24 10/28/2023 COMPL ETE BLOOD COUNT W/DIF F eosinophils % 1.5 % Not Available [address] [place], [address] 10/28/2023 13:08:06 10/28/19 24 10/28/2023 COMPL ETE BLOOD COUNT W/DIF F basophils % 0.4 % Not Available [address] [place], [address] 10/28/2023 13:08:06 10/28/19 24 10/28/2023 COMPL ETE BLOOD COUNT W/DIF F immature grans % 0.4 % Not Available [address] [place], [address] 10/28/2023 13:08:06 10/28/19 24 10/28/2023 COMPL ETE BLOOD COUNT W/DIF F nucleated RBC 0.0 % 0.0-0. 3 normal Not Available [address] [place], [address] 10/28/2023 13:08:06 10/28/19 24 10/28/2023 COMPL ETE BLOOD COUNT W/DIF F absolute neutrophil count 5.16 10_3/ uL 1.2-6. 7 normal Not Available [address] [place], [address] 10/28/2023 13:08:06 10/28/19 24 10/28/2023 COMPL ETE BLOOD COUNT W/DIF F absolute lymphocyte count 1.52 10_3/ uL 1.2-3. 4 normal Not Available [address] [place], [address] 10/28/2023 13:08:06 10/28/19 24 10/28/2023 COMPL ETE BLOOD COUNT W/DIF F absolute monocyte count 0.39 10_3/ uL 0.1-0. 8 normal Not Available [address] [place], [address] 10/28/2023 13:08:06 10/28/19 24 10/28/2023 COMPL ETE BLOOD COUNT W/DIF F absolute eosinophil count 0.11 10_3/ uL 0.0-0. 7 normal Not Available [address] [place], [address] 10/28/2023 13:08:06 10/28/19 24 10/28/2023 COMPL ETE BLOOD COUNT W/DIF F absolute basophil count 0.03 10_3/ uL 0.0-0. 2 normal Not Available [address] [place], [address] 10/28/2023 13:08:06 10/28/19 24 10/28/2023 COMPR EHENS BRISSA METAB OLIC PANEL calcium 9.1 mg/dL 8.5-10 .1 normal Not Available [address] [place], [address] 10/28/2023 13:27:10 10/28/19 24 10/28/2023 COMPR EHENS BRISSA METAB OLIC PANEL glucose 98 mg/dL 74-106 normal Not Available [address] [place], [address] 10/28/2023 13:27:10 10/28/19 24 10/28/2023 COMPR EHENS BRISSA METAB OLIC PANEL BUN 8 mg/dL 7-18 normal Not Available [address] [place], [address] 10/28/2023 13:27:10 10/28/19 24 10/28/2023 COMPR EHENS BRISSA METAB OLIC PANEL creatinine 0.4 mg/dL 0.55-1 .02 low Not Available [address] [place], [address] 10/28/2023 13:27:10 10/28/19 24 10/28/2023 COMPR EHENS BRISSA METAB OLIC PANEL estimated GFR 136.46 mL/min /1.73m 2 Not Available [address] [place], [address] 10/28/2023 13:27:10 10/28/19 24 10/28/2023 COMPR EHENS BRISSA METAB OLIC PANEL total protein 7.9 g/dL 6.4-8. 2 normal Not Available [address] [place], [address] 10/28/2023 13:27:10 10/28/19 24 10/28/2023 COMPR EHENS BRISSA METAB OLIC PANEL albumin 3.0 g/dL 3.4-5. 0 low Not Available [address] [place], [address] 10/28/2023 13:27:10 10/28/19 24 10/28/2023 COMPR EHENS BRISSA METAB OLIC PANEL bilirubin, total 0.27 mg/dL 0.2-1. 0 normal Not Available [address] [place], [address] 10/28/2023 13:27:10 10/28/19 24 10/28/2023 COMPR EHENS BRISSA METAB OLIC PANEL alk phos 263 U/L 46-116 high Not Available [address], [address] 10/28/2023 13:27:10 10/28/19 24 10/28/2023 COMPR EHENS BRISSA METAB OLIC PANEL sodium 141 mmol/ L 136-14 5 normal Not Available [address] [place], [address] 10/28/2023 13:27:10 10/28/19 24 10/28/2023 COMPR EHENS BRISSA METAB OLIC PANEL potassium 4.3 mmol/ L 3.5-5. 1 normal Not Available [address] [place], [address] 10/28/2023 13:27:10 10/28/19 24 10/28/2023 COMPR EHENS BRISSA METAB OLIC PANEL chloride 103 mmol/ L 98-107 normal Not Available [address] [place], [address] 10/28/2023 13:27:10 10/28/19 24 10/28/2023 COMPR EHENS BRISSA METAB OLIC PANEL CO2 29.2 mmol/ L 21.0-3 2.0 normal Not Available [address] [place], [address] 10/28/2023 13:27:10 10/28/19 24 10/28/2023 COMPR EHENS BRISSA METAB OLIC PANEL anion gap 8.8 mmol/ L 3-11 normal Not Available [address] [place], [address] 10/28/2023 13:27:10 10/28/19 24 10/28/2023 COMPR EHENS BRISSA METAB OLIC PANEL AST 22 U/L 15-37 normal Not Available [address], [address] 10/28/2023 13:27:10 10/28/19 24 10/28/2023 COMPR EHENS BRISSA METAB OLIC PANEL ALT 54 U/L 14-59 normal Not Available [address], [address] 10/28/2023 13:27:10 10/28/19 24 10/28/2023 C-MARIELOS CTIVE PROTE IN C-reactive protein 13.00 mg/dL <or=0. 5 high Not Available [facility] (Registration ) [address] [place] [address] [place], [address], 10/28/2023 13:27:11 11/09/19 24 11/09/2023 COMPL ETE BLOOD COUNT W/DIF F WBC 6.51 10_3/ uL 4.4-10 .8 normal Not Available [address] [place], [address] 11/09/2023 17:58:02 11/09/19 24 11/09/2023 COMPL ETE BLOOD COUNT W/DIF F RBC 4.22 10_6/ uL 3.93-5 .22 normal Not Available [address] [place], [address] 11/09/2023 17:58:02 11/09/19 24 11/09/2023 COMPL ETE BLOOD COUNT W/DIF F HGB 11.8 g/dL 11.2-1 5.7 normal Not Available [address] [place], [address] 11/09/2023 17:58:02 11/09/19 24 11/09/2023 COMPL ETE BLOOD COUNT W/DIF F HCT 36.7 % 36.0-4 6.0 normal Not Available [address] [place], [address] 11/09/2023 17:58:02 11/09/19 24 11/09/2023 COMPL ETE BLOOD COUNT W/DIF F MCV 87 fL 80-95 normal Not Available [address] [place], [address] 11/09/2023 17:58:02 11/09/19 24 11/09/2023 COMPL ETE BLOOD COUNT W/DIF F MCH 28.0 pg 27.0-3 3.0 normal Not Available [address] [place], [address] 11/09/2023 17:58:02 11/09/19 24 11/09/2023 COMPL ETE BLOOD COUNT W/DIF F MCHC 32.2 % 32.0-3 6.0 normal Not Available [address] [place], [address] 11/09/2023 17:58:02 11/09/19 24 11/09/2023 COMPL ETE BLOOD COUNT W/DIF F RDW 14.5 % 11.7-1 4.6 normal Not Available [address] [place], [address] 11/09/2023 17:58:02 11/09/19 24 11/09/2023 COMPL ETE BLOOD COUNT W/DIF F platelet count 430 10_3/ uL 130-40 0 high Not Available [address] [place], [address] 11/09/2023 17:58:02 11/09/19 24 11/09/2023 COMPL ETE BLOOD COUNT W/DIF F MPV 9.5 fL 8.0-11 .0 normal Not Available [address] [place], [address] 11/09/2023 17:58:02 11/09/19 24 11/09/2023 COMPL ETE BLOOD COUNT W/DIF F neutrophils % 60.3 % Not Available [address] [place], [address] 11/09/2023 17:58:02 11/09/19 24 11/09/2023 COMPL ETE BLOOD COUNT W/DIF F lymphocytes % 31.0 % Not Available [address] [place], [address] 11/09/2023 17:58:02 11/09/19 24 11/09/2023 COMPL ETE BLOOD COUNT W/DIF F monocytes % 5.7 % Not Available [address] [place], [address] 11/09/2023 17:58:02 11/09/19 24 11/09/2023 COMPL ETE BLOOD COUNT W/DIF F eosinophils % 2.2 % Not Available [address] [place], [address] 11/09/2023 17:58:02 11/09/19 24 11/09/2023 COMPL ETE BLOOD COUNT W/DIF F basophils % 0.6 % Not Available [address] [place], [address] 11/09/2023 17:58:02 11/09/19 24 11/09/2023 COMPL ETE BLOOD COUNT W/DIF F immature grans % 0.2 % Not Available [address] [place], [address] 11/09/2023 17:58:02 11/09/19 24 11/09/2023 COMPL ETE BLOOD COUNT W/DIF F nucleated RBC 0.0 % 0.0-0. 3 normal Not Available [address] [place], [address] 11/09/2023 17:58:02 11/09/19 24 11/09/2023 COMPL ETE BLOOD COUNT W/DIF F absolute neutrophil count 3.93 10_3/ uL 1.2-6. 7 normal Not Available [address] [place], [address] 11/09/2023 17:58:02 11/09/19 24 11/09/2023 COMPL ETE BLOOD COUNT W/DIF F absolute lymphocyte count 2.02 10_3/ uL 1.2-3. 4 normal Not Available [address] [place], [address] 11/09/2023 17:58:02 11/09/19 24 11/09/2023 COMPL ETE BLOOD COUNT W/DIF F absolute monocyte count 0.37 10_3/ uL 0.1-0. 8 normal Not Available [address] [place], [address] 11/09/2023 17:58:02 11/09/19 24 11/09/2023 COMPL ETE BLOOD COUNT W/DIF F absolute eosinophil count 0.14 10_3/ uL 0.0-0. 7 normal Not Available [address] [place], [address] 11/09/2023 17:58:02 11/09/19 24 11/09/2023 COMPL ETE BLOOD COUNT W/DIF F absolute basophil count 0.04 10_3/ uL 0.0-0. 2 normal Not Available [address] [place], [address] 11/09/2023 17:58:02 11/09/19 24 11/09/2023 COMPR EHENS BRISSA METAB OLIC PANEL calcium 9.1 mg/dL 8.5-10 .1 normal Not Available [address] [place], [address] 11/09/2023 18:20:06 11/09/19 24 11/09/2023 COMPR EHENS BRISSA METAB OLIC PANEL glucose 119 mg/dL 74-106 high Not Available [address] [place], [address] 11/09/2023 18:20:06 11/09/19 24 11/09/2023 COMPR EHENS BRISSA METAB OLIC PANEL BUN 30 mg/dL 7-18 high Not Available [address] [place], [address] 11/09/2023 18:20:06 11/09/19 24 11/09/2023 COMPR EHENS BRISSA METAB OLIC PANEL creatinine 1.2 mg/dL 0.55-1 .02 high Not Available [address] [place], [address] 11/09/2023 18:20:06 11/09/19 24 11/09/2023 COMPR EHENS BRISSA METAB OLIC PANEL estimated GFR 62.45 mL/min /1.73m 2 Not Available [address] [place] [place], [address] 11/09/2023 18:20:06 11/09/19 24 11/09/2023 COMPR EHENS BRISSA METAB OLIC PANEL total protein 7.4 g/dL 6.4-8. 2 normal Not Available [address] [place], [address] 11/09/2023 18:20:06 11/09/19 24 11/09/2023 COMPR EHENS BRISSA METAB OLIC PANEL albumin 3.3 g/dL 3.4-5. 0 low Not Available [address] [place], [address] 11/09/2023 18:20:06 11/09/19 24 11/09/2023 COMPR EHENS BRISSA METAB OLIC PANEL bilirubin, total 0.36 mg/dL 0.2-1. 0 normal Not Available [address] [place], [address] 11/09/2023 18:20:06 11/09/19 24 11/09/2023 COMPR EHENS BRISSA METAB OLIC PANEL alk phos 129 U/L 46-116 high Not Available [address] [place], [address] 11/09/2023 18:20:06 11/09/19 24 11/09/2023 COMPR EHENS BRISSA METAB OLIC PANEL sodium 128 mmol/ L 136-14 5 low Not Available [address] [place], [address] 11/09/2023 18:20:06 11/09/19 24 11/09/2023 COMPR EHENS BRISSA METAB OLIC PANEL potassium 4.3 mmol/ L 3.5-5. 1 normal Not Available [address] [place], [address] 11/09/2023 18:20:06 11/09/19 24 11/09/2023 COMPR EHENS BRISSA METAB OLIC PANEL chloride 92 mmol/ L 98-107 low Not Available [address] [place], [address] 11/09/2023 18:20:06 11/09/19 24 11/09/2023 COMPR EHENS BRISSA METAB OLIC PANEL CO2 26.0 mmol/ L 21.0-3 2.0 normal Not Available [address] [place], [address] 11/09/2023 18:20:06 11/09/19 24 11/09/2023 COMPR EHENS BRISSA METAB OLIC PANEL anion gap 10.0 mmol/ L 3-11 normal Not Available [address] [place], [address] 11/09/2023 18:20:06 11/09/19 24 11/09/2023 COMPR EHENS BIRSSA METAB OLIC PANEL AST 29 U/L 15-37 normal Not Available [address] [place], [address] 11/09/2023 18:20:06 11/09/19 24 11/09/2023 COMPR EHENS BRISSA METAB OLIC PANEL ALT 40 U/L 14-59 normal Not Available [address] [place], [address] 11/09/2023 18:20:06 11/09/19 24 11/09/2023 C-MARIELOS CTIVE PROTE IN C-reactive protein 3.21 mg/dL <or=0. 5 high Not Available [address] [place], [address] 11/09/2023 18:20:06 11/09/19 24 11/09/2023 C-MARIELOS CTIVE PROTE IN C-reactive protein 3.21 mg/dL <or=0. 5 high Not Available [address] [place], [address] 11/09/2023 19:28:31 11/09/19 24 11/09/2023 COMPR EHENS BRISSA METAB OLIC PANEL calcium 9.4 mg/dL 8.5-10 .1 normal Not Available [address] [place], [address] 11/09/2023 19:48:30 11/09/19 24 11/09/2023 COMPR EHENS BRISSA METAB OLIC PANEL glucose 114 mg/dL 74-106 high Not Available [address] [place], [address] 11/09/2023 19:48:30 11/09/19 24 11/09/2023 COMPR EHENS BRISSA METAB OLIC PANEL BUN 11 mg/dL 7-18 normal Not Available [address] [place], [address] 11/09/2023 19:48:30 11/09/19 24 11/09/2023 COMPR EHENS BRISSA METAB OLIC PANEL creatinine 0.4 mg/dL 0.55-1 .02 low Not Available [address] [place], [address] 11/09/2023 19:48:30 11/09/19 24 11/09/2023 COMPR EHENS BRISSA METAB OLIC PANEL estimated GFR 136.46 mL/min /1.73m 2 Not Available [address] [place], [address] 11/09/2023 19:48:30 11/09/19 24 11/09/2023 COMPR EHENS BRISSA METAB OLIC PANEL total protein 7.7 g/dL 6.4-8. 2 normal Not Available [address] [place], [address] 11/09/2023 19:48:30 11/09/19 24 11/09/2023 COMPR EHENS BRISSA METAB OLIC PANEL albumin 3.1 g/dL 3.4-5. 0 low Not Available [address] [place], [address] 11/09/2023 19:48:30 11/09/19 24 11/09/2023 COMPR EHENS BRISSA METAB OLIC PANEL bilirubin, total 0.12 mg/dL 0.2-1. 0 low Not Available [address] [place], [address] 11/09/2023 19:48:30 11/09/19 24 11/09/2023 COMPR EHENS BRISSA METAB OLIC PANEL alk phos 213 U/L 46-116 high Not Available [address] [place], [address] 11/09/2023 19:48:30 11/09/19 24 11/09/2023 COMPR EHENS BRISSA METAB OLIC PANEL sodium 140 mmol/ L 136-14 5 normal Not Available [address] [place], [address] 11/09/2023 19:48:30 11/09/19 24 11/09/2023 COMPR EHENS BRISSA METAB OLIC PANEL potassium 3.9 mmol/ L 3.5-5. 1 normal Not Available [address] [place], [address] 11/09/2023 19:48:30 11/09/19 24 11/09/2023 COMPR EHENS BRISSA METAB OLIC PANEL chloride 102 mmol/ L 98-107 normal Not Available [address] [place], [address] 11/09/2023 19:48:30 11/09/19 24 11/09/2023 COMPR EHENS BRISSA METAB OLIC PANEL CO2 26.8 mmol/ L 21.0-3 2.0 normal Not Available [address] [place], [address] 11/09/2023 19:48:30 11/09/19 24 11/09/2023 COMPR EHENS BRISSA METAB OLIC PANEL anion gap 11.2 mmol/ L 3-11 high Not Available [address] [place], [address] 11/09/2023 19:48:30 11/09/19 24 11/09/2023 COMPR EHENS BRISSA METAB OLIC PANEL AST 20 U/L 15-37 normal Not Available [address] [place], [address] 11/09/2023 19:48:30 11/09/19 24 11/09/2023 COMPR EHENS BRISSA METAB OLIC PANEL ALT 56 U/L 14-59 normal Not Available [address] [place], [address] 11/09/2023 19:48:30 11/09/19 24 11/09/2023 C-MARIELOS CTIVE PROTE IN C-reactive protein 3.39 mg/dL <or=0. 5 high Not Available [address] [place], [address] 11/09/2023 19:48:30 06/10/19 24 06/10/2023 x-ray imagi ng repor t Patien t Name: Tana Cavazos Unit #: [id number] Loc: DI Orderi ng Provid er: Caleb Lopez M.D. Accoun t #: [id number] Status : REG CLI Primar [...] t positi oning and scolio sis. 2. Connie Scratcher ior spinal rods within a right convex [...] report in error, please notify us immedi ately at and return the origin al report to us at the addres s above. Thank- you. [facility] [address] [place], [address] 06/11/2023 05:27:44 06/10/19 24 06/10/2023 x-ray imagi ng repor t Patien t Name: Tana Cavazos Unit #: [id number] Loc: DI Orderi ng Provid er: GILSON BARKSDALE N Accoun t #: [id number] Status : REG CLI Primar y Care [...] error, please notify us immedi corina at and return the origin al report to us at the addres s above. Thank- you. [facility] [address], [place], [address] 06/11/2023 05:27:45 Result Notes None recorded. Problems Name Status Onset Date Resolution Date Notes Provider Name and Address Organization Details Recorded Time Consciousness and/or awareness finding Active 2016 Problem Code: R41.89; Problem Code Type: ICD-10; LORNA MARTINEZ APRN [address], [place], [address] , [facility] 3 06:06:35 Tetraplegia Active 201609/02/2018 - Comments only - Lorna Martinez DYE ROOM HELPER - with cognitive dysfunction, scoliosis, spasticity, hypotnoia, chronic pains, contractures with pressure ulcers to bilateral heels. Overall stable and well cared for. 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 Order mesh slings, caregiver will contact [facility] to see if the ones needed are available through them since not able to get through [facility]. Needs new TLSO for her back, current [...] Problem Code: G82.50; Problem Code Type: ICD-10; LORNA MARTINEZ APRN [address], [place], [address] , [facility] 3 06:06:34 Scoliosis deformity of spine Active 2016 Problem Code: M41.9; Problem Code Type: ICD-10; LORNA MARTINEZ APRN [address], [place], [address] , [facility] 3 06:06:35 Spasm Active 201603/02/2017 - Comments only - Emelyn Easley MD - Patient will need on going physical therapy to help prevent worsening spasticity and contractures. Problem Code: R25.2; Problem Code Type: ICD-10; [address], [place], [address] , [facility] 3 06:06:35 Idiopathic urticaria Active 2016 Problem Code: L50.1; Problem Code Type: ICD-10; [address], [place], [address] , [facility] 3 06:06:35 Supraventricu lar tachycardia Active 201606/08/2017 - Comments only - Lorna Martinez APRN - monitor for now. Problem Code: I47.1; Problem Code Type: ICD-10; [address], [place], [address] , [facility] 3 06:06:35 Traumatic or non-traumatic injury Active 2016 Problem Code: T14.90; Problem Code Type: ICD-10; [address], [place], [address] , [facility] 3 06:06:35 Disorder of muscle Active 201610/20/2016 - Comments only - Emelyn Easley MD - This causes some constipation that has been improved by miralax. Problem Code: M62.9; Problem Code Type: ICD-10; [address], [place], [address] , [facility] 3 06:06:35 Adult health examination Active [...] ICD-10; LORNA MARTINEZ APRN [address], [place], [address] , [facility] 3 06:06:35 Impacted cerumen of bilateral ears Completed 201609/29/2016 09/15/2016 - Comments only - Jade Arevalo PORTER LUGGAGE - Rev'd procedure for cerumen removal using [...] H61.23; Problem Code Type: ICD-10; Not Available [facility] 3 03:53:19 Impacted cerumen Active 201612/03/2016 - Comments only - Jade Arevalo PORTER LUGGAGE - - Cerumen not impacted today. Recommended to continue regular checks at future visits, discussed appropriate ear hygiene, and advised f/u for development of symptoms such as ear pulling/pain or trouble hearing. The patient verbalized understanding and agreement to this care plan. Problem Code: H61.20; Problem Code Type: ICD-10; LORNA MARTINEZ APRN [address], [place], [address] , [facility] 3 06:06:35 Pre-surgery evaluation Completed 201601/09/2017 12/26/2016 - Comments only - Jade Arevalo PORTER LUGGAGE - - Pt presents for pre-op physical as she is [place] [facility] [place] they have requested that she has a physical within the last 30 days. There are no concerns raised by her aid who is with her, and no findings on exam that suggest she should not move forward with procedure as scheduled. Problem Code: Z01.818; Problem Code Type: ICD-10; Not Available [facility] 3 03:53:19 Contracture of joint of hand Active 201606/08/2017 - Comments only - Lorna Martinez APRN - continue wearing splint during the day. Wash cloth in her hand while sleeping. Continue with routine stretching and movement as able. Problem Code: M24.549; Problem Code Type: ICD-10; LORNA MARTINEZ APRN [address], [place], [address] , [facility] 3 06:06:35 History of skin and/or subcutaneous tissue disease Active 201706/08/2017 - Comments only - Lorna Martinez APRN - has seen podiatry. Monitor feet routinely. Problem Code: Z87.2; Problem Code Type: ICD-10; LORNA MARTINEZ APRN [address], [place], [address] , [facility] 3 06:06:35 Disorder of tooth development Completed 201703/11/2018 Problem Code: K00.9; Problem Code Type: ICD-10; Not Available [facility] 3 03:53:19 Exposure to communicable disease Completed 202004/03/2021 Problem Code: Z20.828; Problem Code Type: ICD-10; Not Available [facility] 3 03:53:20 Localized eruption of skin Completed 202112/08/2021 Problem Code: R21; Problem Code Type: ICD-10; Not Available [facility] 3 03:53:20 Disorder of skin appendage Completed 202112/08/2021 Problem Code: L73.9; Problem Code Type: ICD-10; Not Available [facility] 3 03:53:20 Sepsis caused by Escherichia coli Active 202208/07/2022 - Comments only - Lorna Martinez APRN - continue mgmt through specialist. Blood drawn, may not be enough of sample but will send. If not enough, will need to come to office. drawn CBCD, CRP, CMP. Problem Code: A41.51; Problem Code Type: ICD-10; [address], [facility] [address] , [facility] 3 06:06:35 Constipation Active 2022 Problem Code: K59.00; Problem Code Type: ICD-10; [address], [facility] [address] , [facility] 3 06:06:35 Spinal cord abscess Active [address], [facility] [address] , [facility] 3 06:06:35 High enzyme level in serum Active 2022 Problem Code: R74.8; Problem Code Type: ICD-10; [address], [facility] [address] , [facility] 3 06:06:35 Anemia Active 2022 Problem Code: D64.9; Problem Code Type: ICD-10; [address], [facility] [address] , [facility] 3 06:06:35 Vitamin D deficiency Active 2022 4.4.24- After completes current HD vitamin D she is to change to vitamin D 5000 IU once a day [address], [facility] [address] , [facility] 4 07:57:05 Osteomyelitis Active 2022 Problem Code: M86.9; Problem Code Type: ICD-10; LORNA MARTINEZ APRN [address], [place], [address] , [facility] 3 06:06:35 Congenital deformity of spine Active 2022 Problem Code: Q67.5; Problem Code Type: ICD-10; LORNA MARTINEZ APRN [address], [place], [address] , [facility] 3 06:06:35 Chronic osteomyelitis with draining sinus Active 2022 Problem Code: M86.48; Problem Code Type: ICD-10; [address], [place], [address] , [facility] 3 06:06:35 Fever Completed 202011/07/2021 Problem Code: R50.9; Problem Code Type: ICD-10; Not Available [facility] 3 03:53:22 Pain of toe of left foot Completed 201603/02/2017 Problem Code: M79.675; Problem Code Type: ICD-10; Not Available [facility] 3 03:53:23 Tinea pedis Completed 201607/17/2020 Problem Code: B35.3; Problem Code Type: ICD-10; Not Available [facility] 3 03:53:23 Device in situ Completed 201609/02/2018 Problem Code: Z97.8; Problem Code Type: ICD-10; Not Available [facility] 3 03:53:24 Closed fracture of lower leg Completed 201607/17/2020 Problem Code: S82.90xD; Problem Code Type: ICD-10; Not Available [facility] 3 03:53:27 Pain of right wrist Completed 202011/07/2021 Problem Code: M25.531; Problem Code Type: ICD-10; Not Available [facility] 3 03:53:27 Disorder of skin and/or subcutaneous tissue Completed 201807/17/2020 Problem Code: L98.9; Problem Code Type: ICD-10; Not Available [facility] 3 03:53:28 Pain in right hip joint Completed 202011/07/2021 Problem Code: M25.551; Problem Code Type: ICD-10; Not Available [facility] 3 03:53:30 Muscle pain Completed 202011/07/2021 Problem Code: M79.10; Problem Code Type: ICD-10; Not Available [facility] 3 03:53:32 Pain in right lower limb Completed 201607/17/2020 Problem Code: M79.604; Problem Code Type: ICD-10; Not Available [facility] 3 03:53:32 Vaccine adverse reaction Completed 201911/07/2021 Not Available [facility] 3 03:53:33 Chronic ulcer of foot Completed 201707/17/2020 Problem Code: L97.529; Problem Code Type: ICD-10; Not Available [facility] 3 03:53:33 Accidental fall Completed 201807/17/2020 Not Available [facility] 3 03:53:34 Cellulitis of toe Completed 201605/08/2017 Problem Code: L03.039; Problem Code Type: ICD-10; Not Available [facility] 3 03:53:35 Pre-surgery evaluation Completed 202202/22/2023 Problem Code: Z01.818; Problem Code Type: ICD-10; Not Available [facility] 4 05:38:03 Intertrigo Active 2023 Martha Lopez RN [facility], [facility]. 4 09:39:19 Thrombocytosi s Active [address], [place], [address] , [facility]. 4 21:17:57 Impacted cerumen Active 2023 LORNA MARTINEZ, DYE ROOM HELPER [address], [place], [address] , [facility] 4 10:33:20 Notes:*Problem Name: Oliguri a and anuria *Problem Status: active *Comments: *Problem Code: R34 *Problem Code Type: ICD-10 *Note Date: 03/04/2018 Problem Notes None recorded. Procedures Surgical History None recorded. Imaging Results Imaging Date Name Status LastModified by Organiz ation Details LastModified Time 06/10/2023 x-ray imaging report completed [address] [place], [address] 06/11/2023 05:27:44 06/10/2023 x-ray imaging report completed [address] [place], [address] 06/11/2023 05:27:45 Procedure Notes None recorded. Medical Equipment None Reported. Allergies Allergen ID Allergen Name Allergen Category Reaction Reaction Severity Criticality Documentation Date Start Date Code Code System Note Provider Name and Address Organization Details Recorded Time 48812 fluoxetin e hydrochlo ride medicatio n other mild Not available 03/06/20232018 83618 4 RxNorm unsur e Aller gyRea ction : 'unsu re'; Not Available [facility] 3 16:14:36 14337 doxycycli ne Not available rash severe Not available 03/06/20232022 3640 RxNorm Aller gyRea ction : 'Rash , Gastr ointe avelino l,'; Not Available [facility] 3 16:14:36 Medications Name Sig Start Date Stop Date Status Note LastModified by Organization Details LastModified Time acetamino phen 325 mg tablet Take 3 tablet by mouth every eight hours as needed active Per [facility] d/c summary 02/25/23 Not Available Not [...] eight hours as needed 07/23 completed Per [facility] d/c summary 02/25/23 Not Available Not Available Not Available Debrox 6.5 % ear drops Instill 5 drop into both ears twice a day 3 days prior to next visit 2023 active Not Available Not Available Not Avai lable bacitraci n zinc 500 unit/gram topical ointment Apply as directed to affected area once a day Apply topicall y once daily to affected area 07/23 completed Per [facility] d/c summary 02/25/23 Not Available Not [...] mg tablet TAKE ONE TABLET BY MOUTH Three TIMES A DAY 2023 active Not Available Not Available Not Avai lable bisacodyl 10 mg rectal supposito ry Insert [...] Not Available Not Available Not Avai lable ergocalci ferol (vitamin D2) 1,250 mcg (50,000 unit) capsule Take 1 capsule by mouth once a week 11/09 completed Not Available Not Available Not Available lorazepam 1 mg tablet 1 tablet PO [...] completed Not Available Not Available Not Available ketoconaz ole 2 % topical cream [...] mg tablet Take 1 tablet by mouth three times a day 09/27 completed last [facility] [place] stated Bactrim DS 800-160m g 1 BID Not Available Not Available Not Available sodium chloride 0.9 % (flush) injection syringe Infuse 10ml into venous catheter 2 times a day 07/23 completed Per [facility] d/c summary 02/25/23 Not Available Not Available Not Available Nyamyc 100,000 unit/gram topical powder APPLY TO AFFECTED AREA(S) FOUR TIMES A DAY active Not Available Not Available No t Available ceftriaxo ne 2 gram/50 mL in dextrose (iso-osm) intraveno us piggyback Infuse 2 gram intraven ously once a day Infuse 50ml (2g total) into a venous catheter daily 07/23 completed Per [facility] d/c summary 02/25/23 Not Available Not Available Not Available cranberry 1 gummy daily active Not Available Not Available No t Available iron 1 gummy daily active Not Available Not Available No t Available cephalexi n 2gm with Heparin and Saline daily 2023 active Not Available Not Available Not Avai lable Multivita l 0.4 mg-162 mg-18 mg tablet 1 tab qd 2017 active Not Available Not Available Not Avai lable Multivita l 2 tablet once a day 2017 active Not Available Not Available Not Avai lable cholecalc iferol (vitamin D3) 50 mcg (2,000 unit) capsule TAKE ONE CAPSULE BY MOUTH EVERY DAY 04/24 completed Not Available Not Available Not Available cholecalc iferol (vitamin D3) 125 mcg (5,000 unit) tablet Take 1 tablet every day by oral route. 2023 active Not Available Not Available Not Avai lable diazepam 5 mg/5 mL (1 mg/mL, 5 [...] 12 patch free hours) 07/23 completed Per [facility] d/c summary 02/25/23 Not Available Not Available Not Available baclofen 15 mg tablet Take 1 tablet 3 times a day by oral route for 3 days. 2023 active Not Available Not Available Not Avai lable Vitals Date Recorded Body height Body mass index (BMI) Body weight Systolic blood pressure Diastolic blood pressure Provider Name and Address Organization Details Last Updated DateTime 04/24/2023 157.48 cm 22.7 kg/m2 11714.45 g 98 mm[Hg] 68 mm[Hg] YOGESH BENDER [facility] 3 09:07:06 Date Recorded Body height Body mass index (BMI) Body weight Oxygen saturation Oxygen saturation in Arterial blood by Pulse oximetry Heart rate Systolic blood pressure Diastolic blood pressure Provider Name and Address Organization Details Last Updated DateTime 4 157.48 cm 22.7 kg/m2 92688.4 5 g 99 % 99 % 86 /min 112 mm[Hg] 74 mm[Hg] YOGESH BENDER [facility] 4 08:53:15 Date Recorded Body height Body mass index (BMI) Body weight Body temperature Oxygen saturation Oxygen saturation in Arterial blood by Pulse oximetry Heart rate Systolic blood pressure Diastolic blood pressure Provider Name and Address Organization Details Last Updated DateTime 4 157.48 cm 22.6 kg/m2 86966.9 6 g 97.9 [degF] 97 % 97 % 110 /min 98 mm[Hg] 64 mm[Hg] YOGESH BENDER [facility] 4 10:12:40 Social History None recorded. Functional Status None [...] Recorded Time MMR 09/16/1994 completed Not Available [facility] 03:50:44 MMR 03/20/1998 completed Not Available [facility] 03:50:45 DTaP, unspecified formulation 05/15/1994 completed Not Available [facility] 03/06/2023 03:50:45 DTaP, unspecified formulation 1993 completed Not Available [facility] 03/06/2023 03:50:45 DTaP, unspecified formulation 1993 completed Not Available [facility] 03/06/2023 03:50:45 DTaP, unspecified formulation 03/07/1994 completed Not Available [facility] 03/06/2023 03:50:45 DTaP, unspecified formulation 03/20/1998 completed Not Available [facility] 03/06/2023 03:50:45 meningococcal ACWY, unspecified formulation 09/15/2011 completed Not Available [facility] 03/06/2023 03:50:46 Td (adult), 5 Lf tetanus toxoid, preservative free, adsorbed 10/20/2016 completed Not Available [facility] 03/06/2023 03:50:46 Tdap 10/22/2018 completed Not Available [facility] 03:50:46 Tdap 11/24/2006 completed Not Available [facility] 03:50:46 Influenza, split virus, quadrivalent, PF 01/15/2021 completed Not Available [facility] 03/06/2023 03:50:47 Influenza, split virus, quadrivalent, PF 02/17/2022 completed Not Available [facility] 03/06/2023 03:50:47 Influenza, split virus, quadrivalent, PF 02/28/2019 completed Not Available [facility] 03/06/2023 03:50:48 Influenza, split virus, quadrivalent, PF 04/02/2020 completed Not Available [facility] 03/06/2023 03:50:48 Influenza, split virus, quadrivalent, preservative 03/02/2017 completed Not Available [facility] 03/06/2023 03:50:48 Influenza, split virus, quadrivalent, preservative 03/04/2018 completed Not Available [facility] 03/06/2023 03:50:48 Hib, unspecified formulation 1993 completed Not Available [facility] 03/06/2023 03:50:48 Hib, unspecified formulation 09/16/1994 completed Not Available [facility] 03/06/2023 03:50:49 Hib, unspecified formulation 1993 completed Not Available [facility] 03/06/2023 03:50:49 Hib, unspecified formulation 03/07/1994 completed Not Available [facility] 03/06/2023 03:50:49 COVID-19, mRNA, LNP-S, PF, 100 mcg/0.5mL dose or 50 mcg/0.25mL dose 08/21/2020 completed Not Available [facility] 03/06/20 03:50:49 COVID-19, mRNA, LNP-S, PF, 100 mcg/0.5mL dose or 50 mcg/0.25mL dose 09/18/2020 completed Not Available [facility] 03/06/20 03:50:49 COVID-19, mRNA, LNP-S, PF, 100 mcg/0.5mL dose or 50 mcg/0.25mL dose 04/10/2021 completed Not Available [facility] 03/06/20 03:50:50 varicella 11/24/2006 completed Not Available [facility] 03:50:50 varicella 01/21/1999 completed Not Available [facility] 03:50:50 SARS-COV-2 (COVID-19) vaccine, UNSPECIFIED 09/25/2021 completed Not Available [facility] 03/06/2023 03:50:50 Hep B, unspecified formulation 1993 completed Not Available [facility] 03/06/2023 03:50:51 Hep B, unspecified formulation 1993 completed Not Available [facility] 03/06/2023 03:50:51 Hep B, unspecified formulation 03/07/1994 completed Not Available [facility] 03/06/2023 03:50:52 Hep A, unspecified formulation 06/22/2000 completed Not Available [facility] 03/06/2023 03:50:52 Hep A, unspecified formulation 11/07/1997 completed Not Available [facility] 03/06/2023 03:50:52 influenza, unspecified formulation 01/18/2016 completed Not Available [facility] 03/06/2023 03:50:52 polio, unspecified formulation 05/15/1994 completed Not Available [facility] 03/06/2023 03:50:52 polio, unspecified formulation 1993 completed Not Available [facility] 03/06/2023 03:50:52 polio, unspecified formulation 09/15/1994 completed Not Available [facility] 03/06/2023 03:50:53 polio, unspecified formulation 03/07/1994 completed Not Available [facility] 03/06/2023 03:50:53 Influenza, split virus, quadrivalent, PF 01/23/2023 completed Not Available [facility] 05/08/2023 05:31:40 Past Encounters Encounter ID Performer Location Encounter Start Date Encounter Closed Date Diagnosis/Indication Diagnosis SNOMED-CT Code [id number] LORNAJUAN [address] [address] 04/24/2023 08:44:16 04/24/2023 10:09:30 Tetraplegia 97619856 Osteomyelitis 75554259 High enzym e level in serum [id number] LORNA MICHEL[address] [address] 07/24/2023 08:40:55 07/24/2023 09:38:18 Tetraplegia 83449103 Osteomyelitis 29963603 High enzym e level in serum [id number] LORNA MICHEL[address] [address] 11/10/2023 09:56:28 11/10/2023 12:18:07 Tetraplegia 78448126 Osteomyelitis 72859849 High enzym e level in serum 302481085 Vitamin D deficiency 347 72515 Impacted cerumen 6847530 6 Health Concerns Section Related Observation LastModified by Organization Detai ls LastModified Time None Recorded Concern Status LastModified by Organization Details LastModified Time None Recorded Advance Directives Directive None Recorded Payers Encounter Date Sequence Insurance Name Policy Number Policy Green Covered Member ID Green Member ID Guarantor Name 04/24/2023 1 [facility] (MEDICAID) Tana Cavazos [id number] Tana Cavazos 07/24/2023 1 [facility] (MEDICAID) Tana Cavazos [id number] Tana Cavazos 11/10/2023 1 [facility]MEDICAID[id number] Notes Date Note Type Note [...] -- Has been working with surgeon at [facility] and [place] [facility] -- Has elevated inflammatory markers that are [...] increasing. She had abdominal US [place] [facility] [place] and this was normal. ID felt [...] TID did help with this. LORNA MARTINEZ, DYE ROOM HELPER [address], [place], [address], [facility] 04/24/2023 10:55:28 07/24/2023 text/html HPI Notes: [...] -- Has been working with surgeon at [facility] and [place] [facility] -- Has elevated inflammatory markers that are [...] increasing. She had abdominal US done [place] [facility] [place] and this was normal. ID felt [...] and see how she does. LORNA MARTINEZ, DYE ROOM HELPER [address], [place], [address], [facility]. 07/24/2023 09:32:54 11/10/2023 text/html HPI Notes: Is he re today [...] areas. Contractures, caregivers stretch as she tolerates. -- update 7.16.24 Fluid intake is good. Urinating well, not holding her urine. Ankles and feet are good. spasticity tight per caregivers. no skin breakdown. No obvious pain. - Chronic constipation. Saw gastroenterology 04/18, was recommended to get a colonoscopy, was pending consent from mother for procedure. Was recommended to trial / consider doing glycerin supp daily instead of bisacodyl as a rescue to see if this improved her bowels. Last visit with her I did recommend to restart metamucil and increase miralax to BID. colonoscopy was done 08/18, normal. Last saw gastro shortly after her colonoscopy; they recommended to continue current regimen which is bisacodyl supp as rescue agent every 3 days if has not moved her bowels; ton consider linzess, but not doing, no FU with gastro was made. -- update 11.10.23. Bowels are good, BMs are most days of the week. Did have some constipation at hospital, but since has resumed normal movements. has not needed bisacodyl. Doing senna and miralax daily. - Osteomyelitis of spine. Since May. Has had inpatient stays and has been outpatient on antimicrobials. -- Had surgery 02/11/23 and was discharged 02/25. Pelvic screw revision and washout with complex plastics closure. Had a PICC line placed and was on IV antimicrobials for about 6-8 weeks. IV abx stopped 03/25/23. -- Has been working with surgeon at [facility] and [place] [facility] -- Has elevated inflammatory markers that are gradually rising, specifically CRP and ESR -- Normal CK -- LFTs are elevated; initially alk phos was primarily elevated, but over the last few months her AST and ALT have been increasing. She had abdominal US done [place] [facility] [place] and this was normal. ID felt [...] to FU with them in 2 months. -- Admitted to hospital November 17, discharged. Was admitted for recurrent abscess to back. Started on ceftriaxone 2gm for 39 days. has drain in place. Has PICC line, no blockages, caregivers is administering the abx and feels comfortable, HH is doing dressing changes. Currently has 1 draining to her back, drains 15ml every 12 hours, drainage is looking like raspberry vinaigrette. Dressing around the drain is changed PRN, no erythema or swelling under the dressing. Orders are to change weekly and PRN. Goes back to ID in December 02. Has been discharged from provider in [place]/ the surgeon. Fannie has full guardianship of Kalyan. LORNA MARTINEZ, DYE ROOM HELPER [address], [place], [address], [facility]. 11/10/2023 12:42:59 OBGyn Episode No OBEpisode recorded.
--- OUTSIDE RECORDS SUMMARY | 2023-11-16 16:54 | XMS_ITS | Continuity of Care Document ---
Author Organization [facility] Address [address] [place] [address] Assessment Encounter Date Assessment Date Assessment LastModified by Organization Details LastModified Time 11/10/2023 11/10/2023 The total time devoted to today's encounter, including both the hwwk-tx-[id number] time with the patient and/or family/caregiv er and oil-ffyu-gu-fa ce time I personally spent is 35 minutes. Hospital admission: 7.3.204 Hospital discharge 7.9.24. Chronic pulmonary care nurse reach out 7.10.24 FU in office: 7.16.24 Complexity: high Follow-up in 6 weeks. Call or RTO sooner if needs arise. Not available 11/10/2023 10:35:50 Plan of Treatment Reminders Order Date Submit Date Provider Last Modified By Organization Details Last Modified Time Details Appointments Follow Up 30 2023 10:30A M LORNA MARTINEZ Not available Not available Not available Lab None recorded. Referral None recorded. Procedures None recorded. Surgeries None recorded. Imaging None recorded. Medication Orders Debrox 6.5 % ear drops 2023 024 [facility] [place], [address], 11/10/2023 10:38:18 cholecalc iferol (vitamin D3) 125 mcg (5,000 unit) tablet 2023 024 [facility] [place], [address], 11/10/2023 11:06:20 baclofen 15 mg tablet 2023 024 [facility]- [address] [place], [address], 11/10/2023 10:38:17 Patient TargetsNo targets recorded. Patient InstructionsNo instructions recorded. Reason for Referral Orthopedic Surgeon Referral for Tetraplegia 2nd time sending for spasms to the right wrist/ thumb. Referring Physician: L[facility], Encounter Date: 07/24/2023 Orthopedic Surgeon Referral for Contracture of joint of hand hand specialist for right thumb pain and contracture of hand Referring Physician: L[facility], Encounter Date: 07/28/2023 Problems Name Status Onset Date Resolution Date Notes Provider Name and Address Organization Details Recorded Time Consciousness and/or awareness finding Active 2016 Problem Code: R41.89; Problem Code Type: ICD-10; LORNA MARTINEZ, [place] [address], [place], [address] , [place] [facility] 3 06:06:35 Tetraplegia Active 201609/02/2018 - Comments only - Lorna Martinez HEAT SET OPERATOR - with cognitive dysfunction, scoliosis, spasticity, hypotnoia, chronic pains, contractures with pressure ulcers to bilateral heels. Overall stable and well cared for. 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 Order mesh slings, caregiver will contact [facility] to see if the ones needed are available through them since not able to get through [facility]. Needs new TLSO for her back, current [...] Problem Code: G82.50; Problem Code Type: ICD-10; [place] [address], [place], [address] , [facility] 3 06:06:34 Scoliosis deformity of spine Active 2016 Problem Code: M41.9; Problem Code Type: ICD-10; [place] [address], [place], [address] , [facility] 3 06:06:35 Spasm Active 201603/02/2017 - Comments only - Emelyn Easley MD - Patient will need on going physical therapy to help prevent worsening spasticity and contractures. Problem Code: R25.2; Problem Code Type: ICD-10; [place] [address], [place], [address] , [facility] 3 06:06:35 Idiopathic urticaria Active 2016 Problem Code: L50.1; Problem Code Type: ICD-10; [place] [address], [place], [address] , [facility] 3 06:06:35 Supraventricu lar tachycardia Active 201606/08/2017 - Comments only - Lorna Martinez APRN - monitor for now. Problem Code: I47.1; Problem Code Type: ICD-10; [place] [address], [place], [address] , [facility] 3 06:06:35 Traumatic or non-traumatic injury Active 2016 Problem Code: T14.90; Problem Code Type: ICD-10; [place] [address], [place], [address] , [facility] 3 06:06:35 Disorder of muscle Active 201610/20/2016 - Comments only - Emelyn Easley MD - This causes some constipation that has been improved by miralax. Problem Code: M62.9; Problem Code Type: ICD-10; LORNA MARTINEZ APRN [address], [place], [address] , [facility] 3 06:06:35 Adult health examination Active [...] ICD-10; LORNA MARTINEZ APRN [address], [place], [address] , [facility] 3 06:06:35 Impacted cerumen of bilateral ears Completed 201609/29/2016 09/15/2016 - Comments only - Jade Arevalo HEALTH CARE SANITARY TECHNICIAN - Rev'd procedure for cerumen removal using [...] H61.23; Problem Code Type: ICD-10; Not Available [facility] 3 03:53:19 Impacted cerumen Active 201612/03/2016 - Comments only - Jade Arevalo HEALTH CARE SANITARY TECHNICIAN - - Cerumen not impacted today. Recommended to continue regular checks at future visits, discussed appropriate ear hygiene, and advised f/u for development of symptoms such as ear pulling/pain or trouble hearing. The patient verbalized understanding and agreement to this care plan. Problem Code: H61.20; Problem Code Type: ICD-10; [place] [address], [place], [address] , [facility] 3 06:06:35 Pre-surgery evaluation Completed 201601/09/2017 12/26/2016 - Comments only - Jade Arevalo HEALTH CARE SANITARY TECHNICIAN - - Pt presents for pre-op physical as she is having a DEXA scan on 12/30 at [facility] and they have requested that she has a physical within the last 30 days. There are no concerns raised by her aid who is with her, and no findings on exam that suggest she should not move forward with procedure as scheduled. Problem Code: Z01.818; Problem Code Type: ICD-10; Not Available [facility] 3 03:53:19 Contracture of joint of hand Active 201606/08/2017 - Comments only - Lorna Martinez APRN - continue wearing splint during the day. Wash cloth in her hand while sleeping. Continue with routine stretching and movement as able. Problem Code: M24.549; Problem Code Type: ICD-10; [place] [address], [place], [address] , [facility] 3 06:06:35 History of skin and/or subcutaneous tissue disease Active 201706/08/2017 - Comments only - Lorna Martinez APRN - has seen podiatry. Monitor feet routinely. Problem Code: Z87.2; Problem Code Type: ICD-10; [place] [address], [place], [address] , [facility] 3 06:06:35 Disorder of tooth development Completed 201703/11/2018 Problem Code: K00.9; Problem Code Type: ICD-10; Not Available [facility] 3 03:53:19 Exposure to communicable disease Completed 202004/03/2021 Problem Code: Z20.828; Problem Code Type: ICD-10; Not Available [facility] 3 03:53:20 Localized eruption of skin Completed 202112/08/2021 Problem Code: R21; Problem Code Type: ICD-10; Not Available [facility] 3 03:53:20 Disorder of skin appendage Completed 202112/08/2021 Problem Code: L73.9; Problem Code Type: ICD-10; Not Available [facility] 3 03:53:20 Sepsis caused by Escherichia coli Active 202208/07/2022 - Comments only - Lorna Martinez APRN - continue mgmt through specialist. Blood drawn, may not be enough of sample but will send. If not enough, will need to come to office. drawn CBCD, CRP, CMP. Problem Code: A41.51; Problem Code Type: ICD-10; [place] [address], [place] [address] , [facility] 3 06:06:35 Constipation Active 2022 Problem Code: K59.00; Problem Code Type: ICD-Kylie; [place] [address], [place] [address] , [facility] 3 06:06:35 Spinal cord abscess Active [address] [place] [address], [address] 3 06:06:35 High enzyme level in serum Active 2022 Problem Code: R74.8; Problem Code Type: ICD-10; [place] [address], [facility] [address] , [facility] 3 06:06:35 Anemia Active 2022 Problem Code: D64.9; Problem Code Type: ICD-10; [place] [address], [facility] [address] , [facility] 3 06:06:35 Vitamin D deficiency Active 2022 4.4.24- After completes current HD vitamin D she is to change to vitamin D 5000 IU once a day khb. [place] [address], [facility] [address] , [facility] 4 07:57:05 Osteomyelitis Active 2022 Problem Code: M86.9; Problem Code Type: ICD-10; [place] [address], [address] 3 06:06:35 Congenital deformity of spine Active 2022 Problem Code: Q67.5; Problem Code Type: ICD-10; [place] [address], [facility] [address] [place] [address] 3 06:06:35 Chronic osteomyelitis with draining sinus Active 2022 Problem Code: M86.48; Problem Code Type: ICD-10; [place] [address], [facility] [address] [place] [address] 3 06:06:35 Fever Completed 202011/07/2021 Problem Code: R50.9; Problem Code Type: ICD-10; Not Available [facility] 3 03:53:22 Pain of toe of left foot Completed 201603/02/2017 Problem Code: M79.675; Problem Code Type: ICD-10; Not Available [facility] 3 03:53:23 Tinea pedis Completed 201607/17/2020 Problem Code: B35.3; Problem Code Type: ICD-10; Not Available [facility] 3 03:53:23 Device in situ Completed 201609/02/2018 Problem Code: Z97.8; Problem Code Type: ICD-10; Not Available [facility] 3 03:53:24 Closed fracture of lower leg Completed 201607/17/2020 Problem Code: S82.90xD; Problem Code Type: ICD-10; Not Available [facility] 3 03:53:27 Pain of right wrist Completed 202011/07/2021 Problem Code: M25.531; Problem Code Type: ICD-10; Not Available [facility] 3 03:53:27 Disorder of skin and/or subcutaneous tissue Completed 201807/17/2020 Problem Code: L98.9; Problem Code Type: ICD-10; Not Available [facility] 3 03:53:28 Pain in right hip joint Completed 202011/07/2021 Problem Code: M25.551; Problem Code Type: ICD-10; Not Available [facility] 3 03:53:30 Muscle pain Completed 202011/07/2021 Problem Code: M79.10; Problem Code Type: ICD-10; Not Available [facility] 3 03:53:32 Pain in right lower limb Completed 201607/17/2020 Problem Code: M79.604; Problem Code Type: ICD-10; Not Available [facility] 3 03:53:32 Vaccine adverse reaction Completed 201911/07/2021 Not Available [facility] 3 03:53:33 Chronic ulcer of foot Completed 201707/17/2020 Problem Code: L97.529; Problem Code Type: ICD-10; Not Available [facility] 3 03:53:33 Accidental fall Completed 201807/17/2020 Not Available [facility] 3 03:53:34 Cellulitis of toe Completed 201605/08/2017 Problem Code: L03.039; Problem Code Type: ICD-10; Not Available [facility] 3 03:53:35 Pre-surgery evaluation Completed 202202/22/2023 Problem Code: Z01.818; Problem Code Type: ICD-10; Not Available [facility] 4 05:38:03 Intertrigo Active 2023 Martha Lopez RN [facility], [facility] 4 09:39:19 Thrombocytosi s Active 2023 LORNA MARTINEZ APRN [address], [address] 4 21:17:57 Impacted cerumen Active 2023 LORNA MARTINEZ APRN [address], [facility] [address] [place] [address] 4 10:33:20 Notes:*Problem Name: Oliguri a and anuria *Problem Status: active *Comments: *Problem Code: R34 *Problem Code Type: ICD-10 *Note Date: 03/04/2018 Problem Notes None recorded. Medical Equipment None Reported. Allergies Allergen ID Allergen Name Allergen Category Reaction Reaction Severity Criticality Documentation Date Start Date Code Code System Note Provider Name and Address Organization Details Recorded Time 34542 fluoxetin e hydrochlo ride medicatio n other mild Not available 03/06/20232018 49414 4 RxNorm unsur e Aller gyRea ction : 'unsu re'; Not Available [facility] 16:14:36 98793 doxycycli ne Not available rash severe Not available 03/06/20232022 3640 RxNorm Aller gyRea ction : 'Rash , Gastr ointe avelino l,'; Not Available [facility] 16:14:36 Medications Name Sig Start Date Stop Date Status Note LastModified by Organization Details LastModified Time acetamino phen 325 mg tablet Take 3 tablet by mouth every eight hours as needed active Per [facility] d/c summary 02/25/23 Not Available Not Available Not Available cefpodoxi me 200 mg tablet TAKE ONE TABLET BY MOUTH TWICE A DAY WITH MEAL/MAXIMINO D 12/29 /2023 completed Not Available Not Available Not Available [...] eight hours as needed 07/23 completed Per [facility] d/c summary 02/25/23 Not Available Not Available [...] daily to affected area 07/23 completed Per [facility] d/c summary 02/25/23 Not Available Not Available [...] three times a day 09/27 completed last [facility] Infectio us note stated Bactrim DS 800-160m g 1 BID Not Available Not Available Not Available sodium chloride 0.9 % (flush) injection syringe Infuse 10ml into venous catheter 2 times a day 07/23 completed Per [facility] d/c summary 02/25/23 Not Available Not Available Not Available Nyamyc 100,000 unit/gram topical powder APPLY TO AFFECTED AREA(S) FOUR TIMES A DAY active Not Available Not Available No t Available ceftriaxo ne 2 gram/50 mL in dextrose (iso-osm) intraveno us piggyback Infuse 2 gram intraven ously once a day Infuse 50ml (2g total) into a venous catheter daily 07/23 completed Per [facility] d/c summary 02/25/23 Not Available Not Available [...] 12 patch free hours) 07/23 completed Per [facility] d/c summary 02/25/23 Not Available Not Available [...] Updated DateTime 4 157.48 cm 22.6 kg/m2 36294.9 6 g 97.9 [degF] 97 % 97 % 110 /min 98 mm[Hg] 64 mm[Hg] YOGESH BENDER CMA [place] [facility] 4 10:12:40 Social History None recorded. [...] Recorded Time MMR 09/16/1994 completed Not Available [facility] 03:50:44 MMR 03/20/1998 completed Not Available [facility] 03:50:45 DTaP, unspecified formulation 05/15/1994 completed Not Available [facility] 03/06/2023 03:50:45 DTaP, unspecified formulation 1993 completed Not Available [facility] 03/06/2023 03:50:45 DTaP, unspecified formulation 1993 completed Not Available [facility] 03/06/2023 03:50:45 DTaP, unspecified formulation 03/07/1994 completed Not Available [facility] 03/06/2023 03:50:45 DTaP, unspecified formulation 03/20/1998 completed Not Available [facility] 03/06/2023 03:50:45 meningococcal ACWY, unspecified formulation 09/15/2011 completed Not Available [facility] 03/06/2023 03:50:46 Td (adult), 5 Lf tetanus toxoid, preservative free, adsorbed 10/20/2016 completed Not Available [facility] 03/06/2023 03:50:46 Tdap 10/22/2018 completed Not Available [facility] 03:50:46 Tdap 11/24/2006 completed Not Available [facility] 03:50:46 Influenza, split virus, quadrivalent, PF 01/15/2021 completed Not Available [facility] 03/06/2023 03:50:47 Influenza, split virus, quadrivalent, PF 02/17/2022 completed Not Available [facility] 03/06/2023 03:50:47 Influenza, split virus, quadrivalent, PF 02/28/2019 completed Not Available [facility] 03/06/2023 03:50:48 Influenza, split virus, quadrivalent, PF 04/02/2020 completed Not Available [facility] 03/06/2023 03:50:48 Influenza, split virus, quadrivalent, preservative 03/02/2017 completed Not Available [facility] 03/06/2023 03:50:48 Influenza, split virus, quadrivalent, preservative 03/04/2018 completed Not Available [facility] 03/06/2023 03:50:48 Hib, unspecified formulation 1993 completed Not Available [facility] 03/06/2023 03:50:48 Hib, unspecified formulation 09/16/1994 completed Not Available [facility] 03/06/2023 03:50:49 Hib, unspecified formulation 1993 completed Not Available [facility] 03/06/2023 03:50:49 Hib, unspecified formulation 03/07/1994 completed Not Available [facility] 03/06/2023 03:50:49 COVID-19, mRNA, LNP-S, PF, 100 mcg/0.5mL dose or 50 mcg/0.25mL dose 08/21/2020 completed Not Available [facility] 03/06/20 03:50:49 COVID-19, mRNA, LNP-S, PF, 100 mcg/0.5mL dose or 50 mcg/0.25mL dose 09/18/2020 completed Not Available [facility] 03/06/20 03:50:49 COVID-19, mRNA, LNP-S, PF, 100 mcg/0.5mL dose or 50 mcg/0.25mL dose 04/10/2021 completed Not Available [facility] 03/06/20 03:50:50 varicella 11/24/2006 completed Not Available [facility] 03:50:50 varicella 01/21/1999 completed Not Available [facility] 03:50:50 SARS-COV-2 (COVID-19) vaccine, UNSPECIFIED 09/25/2021 completed Not Available [facility] 03/06/2023 03:50:50 Hep B, unspecified formulation 1993 completed Not Available [facility] 03/06/2023 03:50:51 Hep B, unspecified formulation 1993 completed Not Available [facility] 03/06/2023 03:50:51 Hep B, unspecified formulation 03/07/1994 completed Not Available [facility] 03/06/2023 03:50:52 Hep A, unspecified formulation 06/22/2000 completed Not Available [facility] 03/06/2023 03:50:52 Hep A, unspecified formulation 11/07/1997 completed Not Available [facility] 03/06/2023 03:50:52 influenza, unspecified formulation 01/18/2016 completed Not Available [facility] 03/06/2023 03:50:52 polio, unspecified formulation 05/15/1994 completed Not Available [facility] 03/06/2023 03:50:52 polio, unspecified formulation 1993 completed Not Available [facility] 03/06/2023 03:50:52 polio, unspecified formulation 09/15/1994 completed Not Available [facility] 03/06/2023 03:50:53 polio, unspecified formulation 03/07/1994 completed Not Available [facility] 03/06/2023 03:50:53 Influenza, split virus, quadrivalent, PF 01/23/2023 completed Not Available [facility] 05/08/2023 05:31:40 Past Encounters Encounter ID Performer Location Encounter Start Date Encounter Closed Date Diagnosis/Indication Diagnosis SNOMED-CT Code [id number] LORNA MARTINEZ HEAT SET OPERATOR [address] [address] 11/10/2023 09:56:28 11/10/2023 12:18:07 Tetraplegia 70118121 Osteomyelitis 93746733 High enzym e level in serum 637057911 Vitamin D deficiency 347 96202 Impacted cerumen 9301823 6 Health Concerns Section Related Observation LastModified by Organization Detai ls LastModified Time None Recorded Concern Status LastModified by Organization Details LastModified Time None Recorded Payers Encounter Date Sequence Insurance Name Policy Number Policy Green Covered Member ID Green Member ID Guarantor Name 11/10/2023 1 [facility] (MEDICAID) Tana Cavazos [id number] Tana Cavazos Notes Date Note Type Note Provider Name and Address Organization Details Recorded Time 11/10/2023 text/html HPI Notes: Is he re [...] caregivers stretch as she tolerates. -- update 11.10.23 Fluid intake is good. Urinating well, not [...] -- Has been working with surgeon at [facility] and ID at [facility]. -- Has elevated inflammatory markers that are gradually rising, specifically CRP and ESR -- Normal CK -- LFTs are elevated; initially alk phos was primarily elevated, but over the last few months her AST and ALT have been increasing. She had abdominal US done at [facility] 03/28/23 and this was normal. ID felt [...] has full guardianship of Kalyan. LORNA MARTINEZ, HEAT SET OPERATOR [address], [place], [address], [facility]. 11/10/2023 12:42:59 OBGyn Episode No OBEpisode recorded.
--- OUTSIDE RECORDS SUMMARY | 2023-11-16 16:54 | XMS_ITS | Encounter Summary ---
Author Organization [facility] Address [facility] [place] [address] Care Team Providers Care Integration Engineer Name Role Phone Lorna Bal APRN Primary Care Provider [phone] Encounter Details Date Type Department Care Team (Late st Contact Info) Description 11/09/2023 Telephone [place] [phone] Yas Tracy, RN Social History Tobacco Use Types Packs/Day Years Used Date Smoking Tobacco: Never Passive Smoke Exposure: Never Smokeless Tobacco: Never Comments:NO SMOKERS IN THE H OME Alcohol Use Standard Drinks/Week Comments No 0 (1 standard drink = 0.6 oz pur e alcohol) [facility] Utilities Answer Date Recorded In the past 12 months has e electric, gas, oil, or water [employer] threatened to shut off services in your [...] any time in the past 12 m [facility], were you homeless or living in a senior care (including now)? No 10/29/2023 IPV Inpatient Questions [...] TH Visit (TeleHealth) [place] [phone] Lilli Joy [place] [address] 12/03/2023 12:30 PM EDT Office [place] [phone] Hollie Ambriz MD [facility] [place] [address] 12/03/2023 2:30 PM EDT [place]ointment [place] [phone] Andrade Melvin MD [facility] [place] [address] documented as of this encounter Visit Diagnoses Not on filedocumented in this encounter Care Teams Integration Engineer Relationship Specialty Start Date End Date Lorna Bal APRN [address] [place] [address] PCP - General Family Medicine 05/27/18 documented as of this encounter
--- OUTSIDE RECORDS SUMMARY | 2023-11-16 16:55 | XMS_ITS | Encounter Summary ---
[place] [address] Care Team Providers Care Electronics Instructor Name Role Phone Lorna Bal APRN Primary Care Provider +1 -[phone] Reason for Referral * Consultation (Routine) - Authorized Specialty Diagnoses / Procedures Referred By Karlo duarte Referred To Contact Orthopaedics Diagnoses Contracture of joint of hand, 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 Lorna Bal APRN [address] [place] [address] [facility] [address] [place] [phone] Referral ID Status Reason Start Date Expiration Date Visits Requested Visits Authorized [id number] Authorized Consult, Test & Treat PCP Updated and/or Approved 08/03/2023 08/02/2024 6 6 Encounter Details Date Type Department Care Team (Latest Contact Info) Description 08/03/2023 Transcribe Orders eDH Incoming Referrals [phone] Lorna Bal APRN [address] [place] [address] Contracture of joint of hand, unspecified laterality [...] EDT TH Visit (TeleHealth) Infectious Disease at [place] [address] Lilli Joy APRN [facility] [address] [place] [address] 12/03/2023 12:30 PM EDT Office Visit [place] [address] Hollie Ambriz MD [facility] [place] [address] 12/03/2023 2:30 PM EDT Appointment Radiology at [address] Andrade Melvin MD [facility] [place]NOST[place] [address] Scheduled Referrals Name Type Priority Associated Diagnoses Orde r Schedule Referral to Orthopaedics Outpatient Referral Routine Contracture of joint of hand, unspecified laterality Ordered: 08/03/2023 documented as of this encounter Visit Diagnoses Diagnosis Contracture of joint of hand, unspecified laterality documented in this encounter Care Teams Electronics Instructor Relationship Specialty Start Date End Date Lorna Bal APRN [address] [place] [address] PCP - General Family Medicine 05/27/18 documented as of this encounter
--- OUTSIDE RECORDS SUMMARY | 2023-11-16 16:55 | XMS_ITS | Encounter Summary ---
Author Organization [facility] [place] [address] Care Team Providers Care Publicity Expert Name Role Phone Lorna Bal APRN Primary Care Provider +1 [phone] Reason for Referral * Diagnostic Test (Routine) - Closed Specialty Diagnoses / Procedures Referred By Contac t Referred To Contact Radiology Diagnoses 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 Procedures CT Lumbar Spine w Contrast George Tipton MD [facility] [place] [address] [facility] [place] [address] Referral ID Status Reason Start Date Expiration Date V isits Requested Visits Authorized [id number] Closed Specialty Service Requested 04/15/2023 10/14/2024 1 1 Encounter Details Date Type Department Care Team (Late st Contact Info) Description 04/15/2023 Notes [place] [address] George Tipton MD [facility] [place] [address] Social History Tobacco Use Types Packs/Day Years Used Date Smoking Tobacco: Never Smokeless Tobacco: Never Comments:NO SMOKERS IN THE H OME Alcohol Use Standard Drinks/Week Comments No 0 (1 standard drink = 0.6 oz pur e alcohol) [facility] Inpatient Questions Answer Date Recorded Does Anyone [...] EDT TH Visit (TeleHealth) [place] [address] Lilli Joy APRN [facility] [place] [address] 12/03/2023 12:30 PM EDT Office [place] [address] Hollie Ambriz MD [facility] [place] [address] 12/03/2023 2:30 PM EDT Appointment Radiology at [facility] [place] [address] Andrade Melvin MD [facility] DR DIAGNOSTIC [place] [address] documented as of this encounter Results * [...] who have questions please contact the health small animal caretaker that requested your imaging first. ? Narrative [...] patients who have questions please contactthe health small animal caretaker that requested your imaging first. Electronically signed by: Bobo Keane MD, [facility]([phone]), at 04/17/2023 10:53 AM Keri Trevino MD IMG CT ORDERABLES documented in this encounter Visit Diagnoses Diagnosis 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- Primary Acute osteomyelitis, other specified site 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 Acute osteomyelitis, other specified site documented in this encounter Care Teams Publicity Expert Relationship Specialty Start Date End Date Lorna Bal APRN [address] [place] [address] PCP - General Family Medicine 05/27/18 documented as of this encounter
--- OUTSIDE RECORDS SUMMARY | 2023-11-16 16:55 | XMS_ITS | Encounter Summary ---
Author Organization [place] [address] Care Team Providers Care Oracle Erp Developer Name Role Phone Lorna Bal APRN Primary Care Provider [phone] [phone] Encounter Details Date Type Department Care Team (Late st Contact Info) Description 04/03/2023 Telephone [place] [phone] Halima García Social History Tobacco Use Types Packs/Day Years Used Date Smoking Tobacco: Never Smokeless Tobacco: Never Comments:NO SMOKERS IN THE H OME Alcohol Use Standard Drinks/Week Comments No 0 (1 standard drink = 0.6 oz pur e alcohol) [facility] Inpatient Questions Answer Date Recorded Does Anyone [...] Orders * Telephone Encounter - Halima García Gemma - 04/03/2023 8:56 AM EST Pt's caregiver called very upset, the pt's levels are very high and she was hoping to start the abxy. I explained the issue with the pharmacy and let her know we are working on sending another script to the pharmacy. Caregiver also mentioned the lab orders were never sent to [facility]. I reviewed the lab orders and she mentioned the ESR was missing. Thanks Halima documented in this encounter Plan of Treatment Upcoming Encounters Date Type Department Care Team (Late st Contact Info) Description 11/19/2023 2:30 PM EDT TH Visit (TeleHealth) [place] [address] Lilli Joy APRN [facility] [place] [address] 12/03/2023 12:30 PM EDT Office Visit Infectious Disease at [place] [phone] Hollie Ambriz MD [facility] [place] [address] 12/03/2023 2:30 PM EDT Appointment [place] [address] Andrade Melvin MD [facility] [place] [address] documented as of this encounter Visit Diagnoses Diagnosis 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 Acute osteomyelitis, other specified site documented in this encounter Care Teams Oracle Erp Developer Relationship Specialty Start Date End Date Lorna Bal APRN [address] [place] [address] PCP - General Family Medicine 05/27/18 documented as of this encounter
--- OUTSIDE RECORDS SUMMARY | 2023-11-16 16:55 | XMS_ITS | Encounter Summary ---
Author Organization [facility] Address [facility] [place] [address] Care Team Providers Care Tobacco Warehouse Agent Name Role Phone Lorna Bal APRN Primary Care Provider +1 [phone] Encounter Details Date Type Department Care Team (Latest Contact Info) Description 07/02/2023 11:00 AM EST TH Visit (TeleHealth) [place] [address] George Tipton MD [facility] [place] [address] Spinal abscess; USP 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 Social History Tobacco [...] remained on bactrim. Followed up with in [place]. MRI was not possible sec. To hardware. CRP/ESR was trending upwards. NSG referred her to [facility] for surgery. The patient went to [...] liquefied hematoma or abscess. Neurosurgeon recommended continuing salvage determiner suppressive antibiotics. Subjective: We called and talked [...] Tipton MD Infectious Diseases Fellow- [id number] Pager: [phone] 07/01/2023 5:26 PM Plan discussed with Dr. Nikolay Toledo This note was created using [employer]) voice recognition software. * Nikolay Toledo MD [...] I am not in favor of continuing salvage determiner suppressive antibiotics. We discussed a tentative stopping [...] EDT TH Visit (TeleHealth) [place] [address] [address] [facility] [place] [address] 12/03/2023 12:30 PM EDT Office [place] [address] Nikolay Toledo MD [facility] [place] [address] 12/03/2023 2:30 PM [place] [address] Andrade Melvin MD [facility] DR [place] [address] documented as of this encounter Visit Diagnoses Diagnosis Spinal abscess Acute osteomyelitis, other specified site USP 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 Encounter for long-term (current) use of antibiotics documented in this encounter Care Teams Tobacco Warehouse Agent Relationship Specialty Start Date End Date Lorna Bal APRN [address] [place] [address] PCP - General Family Medicine 05/27/18 documented as of this encounter
--- OUTSIDE RECORDS SUMMARY | 2023-11-16 16:55 | XMS_ITS | Encounter Summary ---
Author Organization [facility] [place] [address] Care Team Providers Care Trust Mail Clerk Name Role Phone Lorna Bal APRN Primary Care Provider +1 [phone] Encounter Details Date Type Department Care Team (Latest Contact Info) Description 03/27/2023 2:54 PM EST - 03/27/2023 11:59 PM EST Hospital Encounter [place] [address] [place] [address] Spinal abscess Discharge Disposition: Home Social History Tobacco Use Types Packs/Day Years Used Date Smoking Tobacco: Never Smokeless Tobacco: Never Comments:NO SMOKERS IN THE H OME Alcohol Use Standard Drinks/Week Comments No 0 (1 standard drink = 0.6 oz pur e alcohol) [facility] Inpatient Questions Answer Date Recorded Does Anyone [...] TH Visit (TeleHealth) [place] [address] Lilli Joy APRN [facility] [place] [address] 12/03/2023 12:30 PM EDT Office Visit [place] [address] Hollie Ambriz MD [facility] [place] [address] 12/03/2023 2:30 PM EDT Appointment Radiology at [facility] [place] [address] Andrade Melvin MD [facility] [place] [address] documented as of this encounter Procedures Procedure [...] who have questions, please contact the health child care that requested your imaging first. ? Curt Dozier, Staff Physician Electronically Signed Final Report ?? 03/27/2023 03:36 pm Narrative 03/27/2023 3:37 PM EST Abdominal ? (Signed Final 03/27/2023 03:36 pm) PATIENT INFO: ID #: ? [id number] ?: ??[birth year] (27 yrs)(F) Name: ? TANA SHELTON ?Visit Date: 03/27/2023 03:21 pm PERFORMED BY: Attending: ?Jacoby GONZALES MD, Curt Langston Performed By: ? Shelby Gardner RDMS Referred By: ?GABO BANDA Location: ? [place] SERVICE(S) PROVIDED: [facility] - Hepatology Protocol - Abdominal ?18251 Limited Survey Single Organ or Quadrant - [id number] INDICATIONS: Transaminitis ------ LIVER: ------ Right Lobe [...] 03/27/2023 03:36 pm) PATIENT INFO: ID #: [id number] : [id number] (27 yrs)(F) Name: TANA SHELTON Visit Date: 03/27/2023 03:21 pm PERFORMED BY: Attending: Jacoby GONZALES MD, Arthur L. Performed By: Shelby Gardner RDMS Referred By: GABO BANDA Location: [place] SERVICE(S) PROVIDED: [facility] - Hepatology Protocol - Abdominal 20637 Limited Survey Single Organ or Quadrant - [id number] INDICATIONS: Transaminitis ------ LIVER: ------ Right Lobe [...] who have questions, please contact the health child care that requested your imaging first. Curt Dozier, Staff Physician Electronically Signed Final Report 03/27/2023 03:36 pm Gabo Banda MD IMG US GEN ORDERABL ES documented in this encounter Visit Diagnoses Diagnosis Spinal abscess Acute osteomyelitis, other specified site documented in this encounter Care Teams Trust Mail Clerk Relationship Specialty Start Date End Date Lorna Bal APRN [address] [place] [address] PCP - General Family Medicine 05/27/18 documented as of this encounter
--- OUTSIDE RECORDS SUMMARY | 2023-11-16 16:55 | XMS_ITS | Encounter Summary ---
Author Organization [facility] [place] [address] Care Team Providers Care Patient Transition Specialist Name Role Phone Lorna Bal APRN Primary Care Provider +1 -[phone] Encounter Details Date Type Department Care Team (Late st Contact Info) Description 06/17/2023 Telephone [place] [address] Tobi Luna Social History Tobacco Use Types Packs/Day Years Used Date Smoking Tobacco: Never Smokeless Tobacco: Never Comments:NO SMOKERS IN THE H OME Alcohol Use Standard Drinks/Week Comments No 0 (1 standard drink = 0.6 oz pur e alcohol) [facility] Inpatient Questions Answer Date Recorded Does [...] - 06/17/2023 10:02 AM EST Tana Cavazos [id number] Diagnosis/Indication: Chronic constipation and anemia Please review [...] hip issues You must have a responsible libertarian who will drive you to your procedure, stay on campus for the entire duration of your procedure, and drive you home from your procedure. Who will likely be your chassis driver for the procedure? *Please Verify the height [...] EDT TH Visit (TeleHealth) Infectious Disease at [address] Lilli Joy APRN [facility] [address] [facility] [facility] 12/03/2023 12:30 PM EDT Office Visit Infectious Disease at [place] [phone] Hollie Ambriz MD [facility] [place] [address] 12/03/2023 2:30 PM EDT Appointment Radiology at [place] [phone] Andrade Melvin MD [facility] [place] [address] documented as of this encounter Visit Diagnoses Not on filedocumented in this encounter Care Teams Patient Transition Specialist Relationship Specialty Start Date End Date Lorna Bal APRN [address] [place] [address] PCP - General Family Medicine 05/27/18 documented as of this encounter
--- OUTSIDE RECORDS SUMMARY | 2023-11-16 16:55 | XMS_ITS | Encounter Summary ---
Author Organization [facility] Address [facility] [place] [address] Care Team Providers Care Oracle Webcenter Consultant Name Role Phone Lorna Bal APRN Primary Care Provider +1 -[phone] Encounter Details Date Type Department Care Team (Late st Contact Info) Description 09/28/2023 Orders [place] [address] Hollie Ambriz MD [facility] [place] [address] [facility] 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; Spinal abscess; Acute [...] EDT TH Visit (TeleHealth) Infectious Disease at [address] Lilli Joy APRN [facility] [place] [address] 12/03/2023 12:30 PM EDT Office Visit Infectious Disease at [address] Hollie Ambriz MD [facility] [place] [address] 12/03/2023 2:30 PM EDT [place] [address] Andrade Melvin MD [facility] [address] [place] [address] documented as of this encounter Visit Diagnoses Diagnosis 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 Encounter for long-term (current) use of antibiotics Spinal abscess Acute osteomyelitis, other specified site Acute hematogenous osteomyelitis, unspecified site documented in this encounter Care Teams Oracle Webcenter Consultant Relationship Specialty Start Date End Date Lorna Bal APRN [address] [place] [address] PCP - General Family Medicine 05/27/18 documented as of this encounter
--- OUTSIDE RECORDS SUMMARY | 2023-11-16 16:55 | XMS_ITS | Encounter Summary ---
Author Organization [facility] [place] [address] Care Team Providers Care Flatcar Whacker Name Role Phone Lorna Bal APRN Primary Care Provider +1 -[phone] Encounter Details Date Type Department Care Team (Late st Contact Info) Description 08/11/2023 Telephone [place] [address] Halima García Social History Tobacco Use Types Packs/Day Years Used Date Smoking Tobacco: Never Smokeless Tobacco: Never Comments:NO SMOKERS IN THE H OME Alcohol Use Standard Drinks/Week Comments No 0 (1 standard drink = 0.6 oz pur e alcohol) [facility] Inpatient Questions Answer Date Recorded [...] (Bactrim) 400-80 mg tablet. Please send to: [facility] [place], [place] - [address] [facility] documented in this encounter Plan of Treatment Upcoming Encounters Date Type Department Care Team (Late st Contact Info) Description 11/19/2023 2:30 PM EDT TH Visit (TeleHealth) [place] [address] Lilli Joy APRN [facility] [place] [address] 12/03/2023 12:30 PM EDT Office [place] [address] Hollie Ambriz MD [facility] [place] [address] 12/03/2023 2:30 PM EDT [place] [address] Andrade Melvin MD [facility] [place] [address] documented as of this encounter Visit Diagnoses Not on filedocumented in this encounter Care Teams Flatcar Whacker Relationship Specialty Start Date End Date Lorna Bal APRN [address] [place] [address] PCP - General Family Medicine 05/27/18 documented as of this encounter
--- OUTSIDE RECORDS SUMMARY | 2023-11-16 16:55 | XMS_ITS | Encounter Summary ---
Author Organization [facility] Address [facility] [place] [address] Care Team Providers Care Partition Making Machine Operator Name Role Phone Lorna Bal APRN Primary Care Provider +1 -[phone] Encounter Details Date Type Department Care Team (Late st Contact Info) Description 04/29/2023 Notes [place] [address] George Tipton MD [facility] [place] [address] Social History Tobacco Use Types Packs/Day Years [...] from 04/[address] Augustin(Neurosurgeon, [facility]) and talked to medical education manager. According to her the surgeon reviewed the [...] EDT TH Visit (TeleHealth) Infectious Disease at [place] [phone] Lilli Joy APRN [facility] [place] [address] 12/03/2023 12:30 PM EDT Office Visit Infectious Disease at [place] [phone] Hollei Ambriz MD [facility] [place] [address] 12/03/2023 2:30 PM EDT [place]ointment [place] [address] Andrade Melvin MD [facility] [place] [address] documented as of this encounter Visit Diagnoses Not on filedocumented in this encounter Care Teams Partition Making Machine Operator Relationship Specialty Start Date End Date Lorna Bal APRN [address] [place] [address] PCP - General Family Medicine 05/27/18 documented as of this encounter
--- OUTSIDE RECORDS SUMMARY | 2023-11-16 16:55 | XMS_ITS | Encounter Summary ---
Author Organization [facility] [place] [address] Care Team Providers Care Special Education Itinerant Teacher Name Role Phone Lorna Bal APRN Primary Care Provider +1 -[phone] Encounter Details Date Type Department Care Team (Late st Contact Info) Description 10/27/2023 Telephone [place] [address] Halima García Social History Tobacco Use Types Packs/Day Years Used Date Smoking Tobacco: Never Passive Smoke Exposure: Never Smokeless Tobacco: Never Comments:NO SMOKERS IN THE H OME Alcohol Use Standard Drinks/Week Comments No 0 (1 standard drink = 0.6 oz pur e alcohol) [facility] Inpatient Questions Answer Date Recorded Does Anyone [...] Halima García - 10/27/2023 10:23 AM EDT supervisor sintering plant (josy) called stating the patient's infection has returned in her back. They are requesting an order for a aspiration to be put in. documented in this encounter Plan of Treatment Upcoming Encounters Date Type Department Care Team (Late st Contact Info) Description 11/19/2023 2:30 PM EDT TH Visit (TeleHealth) [place] [address] Lilli Joy APRN [facility] [place] [address] 12/03/2023 12:30 PM EDT Office [place] [address] Hollie Ambriz MD [facility] [place] [address] 12/03/2023 2:30 PM [place] [address] Andrade Melvin MD [facility] [place] [address] documented as of this encounter Visit Diagnoses Not on filedocumented in this encounter Care Teams Special Education Itinerant Teacher Relationship Specialty Start Date End Date Lorna Bal APRN [address] [place] [address] PCP - General Family Medicine 05/27/18 documented as of this encounter
--- OUTSIDE RECORDS SUMMARY | 2023-11-16 16:55 | XMS_ITS | Encounter Summary ---
Author Organization [facility] Address [facility] [place] [address] Care Team Providers Care Regulatory Submissions Specialist Name Role Phone Lorna Bal APRN Primary Care Provider +1 [phone] Encounter Details Date Type Department Care Team (Late st Contact Info) Description 10/28/2023 Telephone [place] [address] Neva Thorpe, RN Social History Tobacco Use Types Packs/Day Years Used Date Smoking Tobacco: Never Passive Smoke Exposure: Never Smokeless Tobacco: Never Comments:NO SMOKERS IN THE H OME Alcohol Use Standard Drinks/Week Comments No 0 (1 standard drink = 0.6 oz pur e alcohol) [facility] Utilities Answer Date Recorded In the past 12 months has e [employer], gas, oil, or water [employer] threatened to shut off services in your [...] any time in the past 12 m [facility], were you homeless or living in a [...] EDT TH Visit (TeleHealth) Infectious Disease at [facility] [place] [address] Lilli Joy APRN [facility] [place] [address] 12/03/2023 12:30 PM EDT Office [place] [address] Hollie Ambriz MD [facility] [place] [address] 12/03/2023 2:30 PM ED[place] [address] Andrade Melvin MD [facility] [place] [address] documented as of this encounter Visit Diagnoses Not on filedocumented in this encounter Care Teams Regulatory Submissions Specialist Relationship Specialty Start Date End Date Lorna Bal APRN [address] [place] [address] PCP - General Family Medicine 05/27/18 documented as of this encounter
--- OUTSIDE RECORDS SUMMARY | 2023-11-16 16:55 | XMS_ITS | Encounter Summary ---
Author Organization [facility] Address [facility] [place] [address] Care Team Providers Care Pipeline Controller Name Role Phone Lorna Bal APRN Primary Care Provider +1 -[phone] Reason for Visit * Reason Comments Medication Refill Encounter Details Date Type Department Care Team (Late st Contact Info) Description 09/10/2023 Refill [place] [phone] Hollie Ambriz MD [facility] [place] [address] Social History Tobacco Use Types Packs/Day Years [...] EDT TH Visit (TeleHealth) Infectious Disease at [place] [phone] Lilli Joy APRN [facility] [place] [address] 12/03/2023 12:30 PM EDT Office [place] [address] Hollie Ambriz MD [facility] [place] [address] 12/03/2023 2:30 PM EDT [place] [address] Andrade Melvin MD [facility] [place] [address] documented as of this encounter Visit Diagnoses Not on filedocumented in this encounter Care Teams Pipeline Controller Relationship Specialty Start Date End Date Lorna Bal APRN [address] [place] [address] PCP - General Family Medicine 05/27/18 documented as of this encounter
--- OUTSIDE RECORDS SUMMARY | 2023-11-16 16:55 | XMS_ITS | Encounter Summary ---
[place] [address] Care Team Providers Care Coke Drawer Hand Name Role Phone Lorna Bal APRN Primary Care Provider +1 -[phone] Reason for Visit * Occupational Therapy (Routine) - Closed Specialty Diagnoses / Procedures Referred By Karlo t Referred To Contact Occupational Therapy Diagnoses Chronic pain of right thumb Lucho Foster MD [facility] [place] [address] [facility] [place] [address] Referral ID Status Reason Start Date Expiration Date V isits Requested Visits Authorized [id number] Closed Consult Only 09/29/2023 09/28/2024 30 30 Encounter Details Date Type Department Care Team (Late st Contact Info) Description 09/29/2023 10:00 AM EDT Office [place] [address] Gaby Lake OT [facility] PHYSICAL MEDICINE & [place] [address] 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 Goal Status: Meets Penitentiary Goals (to be met by one year): [...] EDT TH Visit (TeleHealth) Infectious Disease at [facility] [place] [address] Lilli Joy, [place] [facility] [place] [address] 12/03/2023 12:30 PM EDT Office [place] [address] Hollie Ambriz MD [facility] [place] [address] 12/03/2023 2:30 PM EDT [place] [address] Andrade Melvin MD [facility] [place] [address] Scheduled Referrals Name Type Priority Associated Diagnoses Order Schedule Referral to Occupational Therapy Outpatient Referral Routine Chronic pain of right thumb Ordered: 09/29/2023 documented as of this encounter Visit Diagnoses Diagnosis 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
--- OUTSIDE RECORDS SUMMARY | 2023-11-16 16:55 | XMS_ITS | Encounter Summary ---
Author Organization [place] [address] Care Team Providers Care Permastone Mechanic Name Role Phone Lorna Bal APRN Primary Care Provider +1 -[phone] Encounter Details Date Type Department Care Team (Late st Contact Info) Description 06/16/2023 Telephone [place] [phone] Martha Kennedy Social History Tobacco Use Types [...] EDT TH Visit (TeleHealth) Infectious Disease at [place] [phone] Lilli Joy APRN [facility] [place] [address] 12/03/2023 12:30 PM EDT Office [place] [address] Hollie Ambriz MD [facility] [address] INFECTIOUS [place] [address] 12/03/2023 2:30 PM EDT [place] [address] Andrade Melvin MD [facility] DR DIAGNOSTIC [place] [address] documented as of this encounter Visit Diagnoses Not on filedocumented in this encounter Care Teams Permastone Mechanic Relationship Specialty Start Date End Date Lorna Bal APRN [address] [place] [address] PCP - General Family Medicine 05/27/18 documented as of this encounter
--- OUTSIDE RECORDS SUMMARY | 2023-11-16 16:55 | XMS_ITS | Encounter Summary ---
Author Organization [facility] Address [facility] [place] [address] Care Team Providers Care Scouring Machine Tender Name Role Phone Lorna Bal APRN Primary Care Provider +1 -[phone] Encounter Details Date Type Department Care Team (Latest Contact Info) Description 09/29/2023 Travel Social History Tobacco Use Types Packs/Day Years Used Date Smoking Tobacco: Never Passive Smoke Exposure: Never Smokeless Tobacco: Never Comments:NO SMOKERS IN THE H OME Alcohol Use Standard Drinks/Week Comments No 0 (1 standard drink = 0.6 oz pur e alcohol) [facility] Inpatient Questions Answer Date Recorded Does [...] EDT TH Visit (TeleHealth) Infectious Disease at [facility] [place] [place] [address] [facility] [place] [address] 12/03/2023 12:30 PM EDT Office Visit Infectious Disease at [place] [phone] Hollie Ambriz MD [facility] [place] [address] 12/03/2023 2:30 PM EDT [place] [address] Andrade Melvin MD [facility] [place] [address] documented as of this encounter Visit Diagnoses Not on filedocumented in this encounter Care Teams Scouring Machine Tender Relationship Specialty Start Date End Date Lorna Bal APRN [address] [place] [address] PCP - General Family Medicine 05/27/18 documented as of this encounter
--- OUTSIDE RECORDS SUMMARY | 2023-11-16 16:55 | XMS_ITS | Encounter Summary ---
[place] [address] Care Team Providers Care Case Repairer Name Role Phone Lorna Bal APRN Primary Care Provider +1 -[phone] Encounter Details Date Type Department Care Team (Latest Contact Info) Description 04/16/2023 4:05 PM EST Laboratory Appointment Lab [address] [place] [phone] Spinal abscess Social History Tobacco Use Types [...] EDT TH Visit (TeleHealth) [place] [address] Lilli Joy APRN [facility] [place] [address] 12/03/2023 12:30 PM EDT Office [place] [address] Hollie Ambriz MD [facility] [place] [address] 12/03/2023 2:30 PM EDT [place] [address] Andrade Melvin MD [facility] [place] [address] documented as of this encounter Procedures Procedure Name Priority Date/Time Associated Diagnosis Comments HC VENIPUNCTURE Routine 04/16/2023 4:20 PM EST Spinal abscess BILIRUBIN, DIRECT Routine 04/16/2023 4:2 0 PM EST COMPREHENSIVE METABOLIC PANEL (NON-FASTING) Routine 04/16/2023 4:20 PM EST Spinal abscess documented in this encounter Results * Bilirubin, Direct (04/16/2023 4:20 PM EST) Bili, Direct <0.1 0.0 - 0.3 mg/dL [facility] Blood 04/16/2023 4:20 PM EST 04/16/2023 4:28 PM EST Narrative Resulting Agency Comment Spec In Lab George Tipton MD CHEMISTRY ORDERABLES [facility] [place] [address] * (ABNORMAL) Comprehensive metabolic panel (non-fasting) (04/16/2023 4:20 PM EST) Glucose Lvl 79 65 - 199 mg/dL [facility] Comment:Diabetes: >=200 mg/d L plus symptoms BUN 10 8 - 18 mg/dL [facility] Creatinine 0.49(L) 0.70 - 1.20 mg/dL [facility] Sodium 137 135 - 145 mmol/L [facility] Potassium 3.8 3.5 - 5.0 mmol/L [facility] Comment: Please note: ??Patients with WBC >100,000 may have falsely elevated Potassium levels. ??For accurate Potassium quantification in these patients send serum separator tube (gold top) for subsequent determinations. ??Contact the Clinical Chemistry Laboratory if there are any questions. Chloride 99 98 - 107 mmol/L [facility] CO2 27 22 - 31 mmol/L [facility] Anion Gap 11 5 - 15 mmol/L [facility] Calcium 9.4 8.5 - 10.5 mg/dL [facility] Total Protein 7.9 6.1 - 8.0 g/dL [facility] Albumin 4.2 3.2 - 5.2 g/dL [facility] AST 15 0 - 30 unit/L [facility] ALT 40(H) 0 - 30 unit/L [facility] Alk Phos 320(H) 35 - 105 unit/L [facility] Total Bilirubin <0.2(L) 0.2 - 1.3 mg/dL [facility] Estimated GFR 131 >=60 mL/min/1. 73 m?? [facility] Comment: This patient's [...] MD CHEMISTRY ORDERABLE S Performing Organization Address City/[facility]/ZIP Co de Phone Number [facility] [place] [address] * (ABNORMAL) CRP, acute inflammation (04/16/2023 4:20 PM EST) CRP 47.2(H) <=4.9 mg/L [facility] Blood 04/16/2023 4:20 PM EST 04/16/2023 4:28 PM EST Narrative Resulting Agency Comment Spec In Lab Keri Trevino MD CHEMISTRY ORDERABLE S Performing Organization Address City/[facility]/ZIP Co de Phone Number [facility] [place] [address] documented in this encounter Visit Diagnoses Diagnosis Spinal abscess Acute osteomyelitis, other specified site documented in this encounter Care Teams Case Repairer Relationship Specialty Start Date End Date Lorna Bal APRN [address] [place] [address] PCP - General Family Medicine 05/27/18 documented as of this encounter
--- OUTSIDE RECORDS SUMMARY | 2023-11-16 16:55 | XMS_ITS | Encounter Summary ---
Author Organization [facility] [place] [address] Care Team Providers Care Electron Tube Assembler Name Role Phone Lorna Bal APRN Primary Care Provider +1 -[phone] Encounter Details Date Type Department Care Team (Latest Contact Info) Description 04/16/2023 Travel Social History Tobacco Use Types Packs/Day Years Used Date Smoking Tobacco: Never Smokeless Tobacco: Never Comments:NO SMOKERS IN THE H OME Alcohol Use Standard Drinks/Week Comments No 0 (1 standard drink = 0.6 oz pur e alcohol) [facility] Inpatient Questions Answer Date Recorded Does [...] Visit (TeleHealth) Infectious Disease [place] [address] Lilli Joy APRN [facility] [place] [address] 12/03/2023 12:30 PM EDT Office Visit Infectious Disease at [place] [phone] Hollie Ambriz MD [facility] [place] [address] 12/03/2023 2:30 PM EDT [place] [address] Andrade Melvin MD [facility] [place] [address] documented as of this encounter Visit Diagnoses Not on filedocumented in this encounter Care Teams Electron Tube Assembler Relationship Specialty Start Date End Date Lorna Bal APRN [address] [place] [address] PCP - General Family Medicine 05/27/18 documented as of this encounter
--- OUTSIDE RECORDS SUMMARY | 2023-11-16 16:55 | XMS_ITS | Encounter Summary ---
Author Organization [facility] Address [facility] [place] [place] [address] Care Team Providers Care Sink Maker Name Role Phone Lorna Bal APRN Primary Care Provider +1 -[phone] Reason for Visit * Reason Onset Date Comments Medication Refill 08/11/2023 Encounter Details Date Type Department Care Team (Late st Contact Info) Description 08/11/2023 [place] [address] Hollie Ambriz MD [facility] [place] [address] Social History Tobacco Use Types Packs/Day Years Used Date Smoking Tobacco: Never Smokeless Tobacco: Never Comments:NO SMOKERS IN THE H OME Alcohol Use Standard Drinks/Week Comments No 0 (1 standard drink = 0.6 oz pur e alcohol) [facility] Inpatient Questions Answer Date Recorded [...] EDT TH Visit (TeleHealth) Infectious Disease at [place] [address] Lilli Joy APRN [facility] [place] [address] 12/03/2023 12:30 PM EDT Office Visit Infectious Disease at [place] [address] Hollie Ambriz MD [facility] [place] [address] 12/03/2023 2:30 PM EDT Appointment Radiology at [place] [phone] Andrade Melvin MD [facility] [place] [address] documented as of this encounter Visit Diagnoses Not on filedocumented in this encounter Care Teams Sink Maker Relationship Specialty Start Date End Date Lorna Bal APRN [address] [place] [address] PCP - General Family Medicine 05/27/18 documented as of this encounter
--- OUTSIDE RECORDS SUMMARY | 2023-11-16 16:55 | XMS_ITS | Encounter Summary ---
[place] [address] Care Team Providers Care Record Producer Name Role Phone Lorna Bal APRN Primary Care Provider +1 -[phone] Encounter Details Date Type Department Care Team (Latest Contact Info) Description 09/24/2023 Travel Social History Tobacco Use Types Packs/Day Years Used Date Smoking Tobacco: Never Smokeless Tobacco: Never Comments:NO SMOKERS IN THE H OME Alcohol Use Standard Drinks/Week Comments No 0 (1 standard drink = 0.6 oz pur e alcohol) [facility] Inpatient Questions Answer Date Recorded [...] EDT TH Visit (TeleHealth) Infectious Disease at [facility] [place] [address] Lilli Joy APRN [facility] [place] [address] 12/03/2023 12:30 PM EDT Office Visit Infectious Disease at [place] [phone] Hollie Ambriz MD [facility] INFECTIOUS [place] [address] 12/03/2023 2:30 PM EDT [place] [address] Andrade Melvin MD [facility] DIAGNOSTIC [place] [address] documented as of this encounter Visit Diagnoses Not on filedocumented in this encounter Care Teams Record Producer Relationship Specialty Start Date End Date Lorna Bal APRN [address] [place] [address] PCP - General Family Medicine 05/27/18 documented as of this encounter
--- OUTSIDE RECORDS SUMMARY | 2023-11-16 16:55 | XMS_ITS | Encounter Summary ---
Author Organization [facility] Address [facility] [place] [address] Care Team Providers Care Thermal Cutter Hand Name Role Phone Lorna Bal APRN Primary Care Provider +1 -[phone] Encounter Details Date Type Department Care Team (Latest Contact Info) Description 10/28/2023 Travel Social History Tobacco Use Types Packs/Day Years Used Date Smoking Tobacco: Never Passive Smoke Exposure: Never Smokeless Tobacco: Never Comments:NO SMOKERS IN THE H OME Alcohol Use Standard Drinks/Week Comments No 0 (1 standard drink = 0.6 oz pur e alcohol) [facility] Utilities Answer Date Recorded In the past 12 months has e [employer], gas, oil, or water [employer] threatened to shut off services in your [...] in the past 12 m [facility], were you homeless or living in a retirement (including now)? No 10/29/2023 IPV Inpatient Questions [...] EDT TH Visit (TeleHealth) [place] [address] Lilli Joy APRN [facility] [place] [address] 12/03/2023 12:30 PM EDT Office Visit Infectious Disease at [place] [phone] Hollie Ambriz MD [facility] [place] [address] 12/03/2023 2:30 PM EDT Appointment Radiology at [place] [phone] Andrade Melvin MD [facility] [place] [address] documented as of this encounter Visit Diagnoses Not on filedocumented in this encounter Care Teams Thermal Cutter Hand Relationship Specialty Start Date End Date Lorna Bal APRN [address] [place] [address] PCP - General Family Medicine 05/27/18 documented as of this encounter
--- OUTSIDE RECORDS SUMMARY | 2023-11-16 16:55 | XMS_ITS | Encounter Summary ---
Author Organization [facility] Address [facility] [place] [address] Care Team Providers Care Dental Intern Name Role Phone Lorna Bal APRN Primary Care Provider +1 -[phone] Encounter Details Date Type Department Care Team (Late st Contact Info) Description 10/28/2023 Telephone [place] [address] Neva Thorpe, RN Social History Tobacco Use Types Packs/Day Years Used Date Smoking Tobacco: Never Passive Smoke Exposure: Never Smokeless Tobacco: Never Comments:NO SMOKERS IN THE H OME Alcohol Use Standard Drinks/Week Comments No 0 (1 standard drink = 0.6 oz pur e alcohol) [facility] Utilities Answer Date Recorded In the past 12 months has e [employer], gas, oil, or water [employer] threatened to shut off services in your [...] any time in the past 12 m [facility], were you homeless or living in a nursing home (including now)? No 10/29/2023 DH IPV [...] back ot to Fannie: Labs drawn at [facility] today-waiting for results Area still on her [...] about Fannie being the contact on the [facility] portal. 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 Plan: Fannie will call back once she has the lab results. Will call to schedule CT Scan. Fannie understands that the department is closed tomorrow for the holiday. This RN explained how to reach the provider editor publications if necessary. Will review with Dr Hollie Ambriz 10/28/2023 1634 [facility] faxing labs over. Fannie states she is bringing Tana into the ER here at to be evaluated. Dr Ambriz updated documented in this encounter Plan of Treatment Upcoming Encounters Date Type Department Care Team (Late st Contact Info) Description 11/19/2023 2:30 PM EDT TH Visit (TeleHealth) Infectious Disease at [place] [phone] Lilli Joy APRN [facility] [place] [address] 12/03/2023 12:30 PM EDT Office Visit Infectious Disease at [place] [phone] Hollie Ambriz MD [facility] [place] [address] 12/03/2023 2:30 PM EDT Appointment Radiology at [place] [phone] Andrade Melvin MD [facility] [place] [address] documented as of this encounter Visit Diagnoses Not on filedocumented in this encounter Care Teams Dental Intern Relationship Specialty Start Date End Date Lorna Bal APRN [address] [place] [address] PCP - General Family Medicine 05/27/18 documented as of this encounter
--- OUTSIDE RECORDS SUMMARY | 2023-11-16 16:55 | XMS_ITS | Encounter Summary ---
Author Organization [facility] Address [facility] [place] [address] Care Team Providers Care Senior Maintenance Mechanic Name Role Phone Lorna Bal APRN Primary Care Provider +1 -[phone] Encounter Details Date Type Department Care Team (Late st Contact Info) Description 10/28/2023 Telephone [place] [address] Neva Thorpe, RN Social History Tobacco Use Types Packs/Day Years Used Date Smoking Tobacco: Never Passive Smoke Exposure: Never Smokeless Tobacco: Never Comments:NO SMOKERS IN THE H OME Alcohol Use Standard Drinks/Week Comments No 0 (1 standard drink = 0.6 oz pur e alcohol) [facility] Utilities Answer Date Recorded In the past 12 months has e [employer], gas, oil, or water [employer] threatened to shut off services in your [...] any time in the past 12 m [facility], were you homeless or living [...] EDT TH Visit (TeleHealth) [place] [address] Lilli Joy APRN [facility] [place] [address] 12/03/2023 12:30 PM EDT Office [place] [address] Hollie Ambriz MD [facility] [place] [address] 12/03/2023 2:30 PM EDT Appointment Radiology at [facility] [place] [address] Andrade Melvin MD [facility] DIAGNOSTIC RADIOLOGY [place], [place] [phone] documented as of this encounter Visit Diagnoses Not on filedocumented in this encounter Care Teams Senior Maintenance Mechanic Relationship Specialty Start Date End Date Lorna Bal APRN [address] [place] [address] PCP - General Family Medicine 05/27/18 documented as of this encounter
--- OUTSIDE RECORDS SUMMARY | 2023-11-16 16:55 | XMS_ITS | Encounter Summary ---
Author Organization [facility] Address [facility] [place] [address] Care Team Providers Care Mobility Engineer Name Role Phone Lorna Bal APRN Primary Care Provider +1 [phone] Encounter Details Date Type Department Care Team (Late st Contact Info) Description 10/28/2023 Telephone [place] [address] Neva Thorpe, RN Social History Tobacco Use Types Packs/Day Years Used Date Smoking Tobacco: Never Passive Smoke Exposure: Never Smokeless Tobacco: Never Comments:NO SMOKERS IN THE H OME Alcohol Use Standard Drinks/Week Comments No 0 (1 standard drink = 0.6 oz pur e alcohol) [facility] Utilities Answer Date Recorded In the past 12 months has e [employer], gas, oil, or water [employer] threatened to shut off services in your [...] any time in the past 12 m [facility], were you homeless or living in a jail (including now)? No 10/29/2023 IPV Inpatient Questions [...] EDT TH Visit (TeleHealth) [place] [address] Lilli Joy [place] [facility] [place] [address] 12/03/2023 12:30 PM EDT Office Visit [place] [address] Hollie Ambriz MD [facility] [place] [address] 12/03/2023 2:30 PM EDT Appointment [place] [phone] Andrade Melvin MD [facility] DR [place]AG[place]ST[place] [address] documented as of this encounter Visit Diagnoses Not on filedocumented in this encounter Care Teams Mobility Engineer Relationship Specialty Start Date End Date Lorna Bal, [place] [address] [place] [address] PCP - General Family Medicine 05/27/18 documented as of this encounter
--- OUTSIDE RECORDS SUMMARY | 2023-11-16 16:55 | XMS_ITS | Encounter Summary ---
Author Organization [facility] [place] [address] Care Team Providers Care Hackler Doll Wigs Name Role Phone Lorna Bal APRN Primary Care Provider +1 -[phone] Reason for Referral * Diagnostic Test (Routine) - Authorized Specialty Diagnoses / Procedures Referred By Contac t Referred To Contact Radiology Diagnoses Spinal abscess Procedures CT Lumbar Spine w Contrast Hollie Ambriz MD [facility] [place] [address] [place] [address] Referral ID Status Reason Start Date Expiration Date Visits Requested Visits Authorized [id number] Authorized Specialty Service Requested 10/27/2023 04/28/2025 1 1 Encounter Details Date Type Department Care Team (Late st Contact Info) Description 10/27/2023 Telephone [place] [address] Hollie Ambriz MD [facility] [place] [address] Social History Tobacco Use Types [...] shared plan of obtaining labs locally at [facility] and ideally coordinating a CT L-spine at [facility], followed by potential IR aspiration if a [...] EDT TH Visit (TeleHealth) [place] [address] Lilli Joy APRN [facility] [place] [address] 12/03/2023 12:30 PM EDT Office Visit Infectious Disease at [facility] [place] [phone] Hollie Ambriz MD [facility] [place] [address] 12/03/2023 2:30 PM EDT Appointment Radiology at [facility] [place] [phone] Andrade Melvin MD [facility] [place] [address] Scheduled Orders Name Type Priority Associated Diagnoses [...] site documented in this encounter Care Teams Hackler Doll Wigs Relationship Specialty Start Date End Date Lorna Bal APRN [address] [place] [address] PCP - General Family Medicine 05/27/18 documented as of this encounter
--- OUTSIDE RECORDS SUMMARY | 2023-11-16 16:55 | XMS_ITS | Encounter Summary ---
Author Organization [facility] Address [facility] [place] [address] Care Team Providers Care Township Clerk Name Role Phone Lorna Bal APRN Primary Care Provider +1 -[phone] Encounter Details Date Type Department Care Team (Late st Contact Info) Description 08/05/2023 10:24 AM EDT Anesthesia Event [place] [phone] Christopher Johansen MD [facility] [place] [address] Buster Brooke Anesthesia Record Procedure Summary Procedure [...] 1042; metacarpal vein (top of hand), right; vtkx-qyf-ipozrl catheter system; 22 gauge; distraction, intradermal injection, tolerated well; LDA not present upon assessment; 10/29/23; 0840 09/26/22 1042 by Ramiro Aden LPN 10/29/23 0840 by Hank Christian RN Incision 09/26/22; 1328; Righ t; gluteal; non-laparascopic puncture; Aspiration site (Gregory, DO); LDA not present upon assessment; 10/29/23 09/26/22 1328 by Nathalie Hernández RN 10/29/23 0000 by Jaye Murry RN PIV 08/05/23; 1015; sfbr-mcf-szjgwa catheter system; 22 gauge; great saphenous vein [...] Procedure Summary Date: 08/05/23 Room / Location: [facility] ENDO 5 / [facility] ENDOSCOPY Anesthesia Start: 1024 Anesthesia Stop: 110 Procedure: COLONOSCOPY FLEXIBLE, WITH BX (WRVU 3.56) (Trunk) Diagnosis: Constipation, unspecified constipation type (Colonoscopy- Chronic constipation and anemia) Surgeons: Jamar Gastelum MD Responsible Provider: Christopher Johansen MD Anesthesia Type: MAC ASA Status: 3 All Anesthesia Providers: Anesthesiologist: Christopher Johansen MD Student Nurse Statistical Reporting Analyst: Buster Brooke Vitals Value Taken Time BP 119/81 08/05/23 1125 Temp Pulse Resp 16 08/05/23 1125 SpO2 99 % 08/05/23 1127 Pain Level 0 08/05/23 1125 Vitals shown include unfiled device data. Patient Location: PACU/[facility] Level of Consciousness: Awake and Alert Pain [...] a 28 y.o. female. Procedure(s): [facility] Patient Active Problem List Diagnosis Date [...] All Drainage Procedures 06/25/2022 Mich Martino MD [facility] RAD ??? IR ALL DRAINAGE PROCEDURES 07/04/2022 IR All Drainage Procedures 07/04/2022 Mich Martino MD [facility]VENT[facility] RAD ??? IR ALL DRAINAGE PROCEDURES 07/24/2022 IR All Drainage Procedures 07/24/2022 Anurag Kumar MD [facility] RAD ??? IR ALL DRAINAGE PROCEDURES 09/26/2022 IR All Drainage Procedures 09/26/2022 Jamaal Jenkins, DO [facility] RAD ??? IR DRAIN CHECK/CHANGE/REMOVE 07/01/2022 IR Drain Check/Change/Remove 07/01/2022 Jamaal Jenkins, DO [facility] RAD ??? IR DRAIN CHECK/CHANGE/REMOVE 08/11/2022 IR Drain Check/Change/Remove 08/11/2022 Piter Self MD [facility] RAD ??? IR DRAIN CHECK/CHANGE/REMOVE 08/25/2022 IR Drain Check/Change/Remove 08/25/2022 Jamaal Jenkins, DO [facility] RAD ??? IR DRAIN CHECK/CHANGE/REMOVE 09/10/2022 IR Drain Check/Change/Remove 09/10/2022 Mich Martino MD [facility] RAD ??? PRO APPLY OF HIP CASTS, TWO LEGS 08/15/2010 CAST APPLICATION, HIP SPICA, BOTH LEGS performed by BARRERA OLIVER at [facility] OR ? ? PRO I&D, [...] [facility] ??? PRO IMPACT TOOTH REMOV COMP BONY N/A 06/14/2018 SURGICAL EXTRACTIONS, REMOVAL OF IMPACTED TOOTH, COMPLETELY BONY (WRVU 1.93) performed by Keith Cotton MD at [facility] OSC ??? PRO OSTEOTOMY FEMUR SHAFT/SUPRACONDY 08/15/2010 ??OSTEOTOMY, FEMUR SHAFT OR SUPRACONDYLAR W/O FIXATION performed by BARRERA OLIVER at [facility] MAIN OR ??? PRO RECONSTRUC HIP SOCKET, RESEC FEM HEAD 08/15/2010 ??ACETABULOPLASTY (GIRDLESTONE), RESECTION FEMORAL HEAD, BILATERAL performed by BARRERA OLIVER [facility] MAIN OR ??? PRO REMOVAL DEEP IMPLANT 08/15/2010 REMOVAL IMPLANT, DEEP, BRUNO performed by BARRERA OLIVER at [facility] MAIN OR ??? PRO REMOVAL ERUPTED TOOTH WITH ELEVATION OF MUCOPERIOSTEAL FLAP N/A 06/14/2018 SURGICAL EXTRACTIONS REQUIRING ELEVATION OF MUCOPERIOSTEAL FLAP AND REMOVAL OF BONE OR SECTION OF TOOTH (WRVU 1.09) performed by Keith Cotton MD at [facility] OSC ??? PRO REMOVE INFUSN DEVICE/PUMP N/A 05/11/2014 REMOVAL OF SPINE INFUSION PUMP performed by Jamaal Samuel MD at [facility] MAIN OR ??? PRO REMOVE SPINAL CANAL CATHETER N/A 05/11/2014 REMOVAL OF INTRATHECAL OR EPIDURAL CATHETER performed by Jamaal Samuel MD at [facility] MAIN OR ??? PRO REPR, DURAL/CSF LEAK, NOT REQ LAMINECTOMY N/A 05/20/2014 @REPAIR DURAL\CSF LEAK,NOT REQUIRING LAMINECTOMY performed by Freddy Isbell MD at [facility] MAIN OR Social History Tobacco Use ??? Smoking status: Never ??? Smokeless tobacco: Never ??? Tobacco comments: NO SMOKERS IN THE HOME Substance Use Topics ??? Alcohol use: No Social History Substance and Sexual Activity Drug Use No Allergies Allergen Reactions ??? Fluoxetine Other (See Comments) HIVES, HEART RACES ??? Tegaderm [Transparent Dressings] Itching and Dermatitis Please use [id number] ??? Cyclobenzaprine Other Reaction(s): Not available ??? [...] risks discussed with patient. Plan discussed with SUPERVISOR CAB. Anesthesia Screening documented in this encounter Plan of Treatment Upcoming Encounters Date Type Department Care Team (Late st Contact Info) Description 11/19/2023 2:30 PM EDT TH Visit (TeleHealth) [place] [address] Lilli Joy APRN [facility] [address] [place] [address] 12/03/2023 12:30 PM EDT Office Visit Infectious Disease at [place] [phone] Hollie Ambriz MD [facility] INFECTI[place] [address] 12/03/2023 2:30 PM EDT Appointment Radiology at [place] [phone] Andrade Melvin MD [facility] DIAGNOSTIC [place] [address] documented as of this encounter Visit Diagnoses [...] mg documented in this encounter Care Teams Township Clerk Relationship Specialty Start Date End Date Lorna Bal APRN [address] [place] [address] PCP - General Family Medicine 05/27/18 documented as of this encounter
--- OUTSIDE RECORDS SUMMARY | 2023-11-16 16:55 | XMS_ITS | Encounter Summary ---
Author Organization [facility] [place] [address] Care Team Providers Care Mobile Plant Operators Name Role Phone Lorna Bal APRN Primary Care Provider +1 -[phone] Encounter Details Date Type Department Care Team (Late st Contact Info) Description 03/30/2023 Telephone [place] [phone] Halima García Social History Tobacco Use Types [...] 8:44 AM EST Erika - pharmacist CB: [phone] [facility] [place], [place] - [address] [facility]. Erika from [facility] called Dr. [place] isn't setup [place] medicaid so the script for bactrim won't go through. The pharmacy is requesting a new script from the attending. Jack Varghese documented in this encounter Plan of Treatment Upcoming Encounters Date Type Department Care Team (Late st Contact Info) Description 11/19/2023 2:30 PM EDT TH Visit (TeleHealth) Infectious Disease at [place] [phone] Lilli Joy APRN [facility] [place] [address] 12/03/2023 12:30 PM EDT Office [place] [phone] Hollie Ambriz MD [facility] [place] [address] 12/03/2023 2:30 PM EDT Appointment Radiology at [place] [phone] Andrade Melvin MD [facility] [place] [address] documented as of this encounter Visit Diagnoses Not on filedocumented in this encounter Care Teams Mobile Plant Operators Relationship Specialty Start Date End Date Lorna Bal APRN [address] [place] [address] PCP - General Family Medicine 05/27/18 documented as of this encounter
--- OUTSIDE RECORDS SUMMARY | 2023-11-16 16:55 | XMS_ITS | Encounter Summary ---
Author Organization [facility] Address [facility] [place] [address] Care Team Providers Care Cosmetician Apprentice Name Role Phone Lorna Bal APRN Primary Care Provider +1 -[phone] Encounter Details Date Type Department Care Team (Latest Contact Info) Description 08/05/2023 9:03 AM EDT - 08/05/2023 11:39 AM EDT Hospital En[place] [address] Jamar Gastelum MD [facility] [place] [address] Discharge Disposition: Home Social History Tobacco Use [...] occurs, please contact your Doctor. Please call [phone] before 8pm Mon-Fri with problems, questions or concerns. If you call after 8pm or on weekends, call the Hospital at [phone] and ask to speak to the Production Planner Scheduler cotton ginner and the steam plant control room operator will contact that person for you. When should you call for help? Call [phone] anytime you think you may need emergency [...] any problems. Where can you learn more? [facility] View your After Visit Summary and more online at [email or web address] If you would like to provide feedback about your hospital experience, please call the Office of Patient and Family Relations at . If you have received this After Visit Summary in error, please immediately return it in person to the department, or notify the [facility] Privacy Office by calling toll free at between the hours of 8AM and 5PM to arrange for our retrieval of the documents at no cost to you. Content Version: 12.2 ?? [id number] [employer]. Care instructions adapted under license by [facility]. If you have questions about a medical condition or this instruction, always ask your healthcare professional. [employer] disclaims any warranty or liability for your [...] AM EDT [facility] [place] Patient Name: Tana Cavazos : [id number] MR#: [id number] Case Date: 08/05/2023 Surgeon: Surgeon(s) and Role: [...] EDT TH Visit (TeleHealth) Infectious Disease at [place] [phone] Lilli Joy APRN [facility] [place] [address] 12/03/2023 12:30 PM EDT Office Visit Infectious Disease at [place] [phone] Hollie Ambriz MD [facility] DR [place] [address] 12/03/2023 2:30 PM EDT [place] [address] Andrade Melvin MD [facility] DR DIAGNOST[place] [address] documented as of this encounter Procedures Procedure Name Priority Date/Time Associated Diagnosis Comments SPECIMEN TO PATHOLOGY Routine 08/05/2023 11:01 AM EDT SURGICAL PATHOLOGY REPORT Routine 08/05/2023 11:00 AM EDT Colonoscopy, Biopsy ([id number]) 08/05/2023 10:27 AM EDT Constipation, unspecified constipation type COLONOSCOPY Routine 08/05/2023 9:59 AM EDT documented in this encounter Results * Specimen to Pathology (08/05/2023 11:01 AM EDT) AP Specimen 08/05/2023 11:0 1 AM EDT 08/05/2023 11:01 AM EDT Narrative [facility] - 08/05/2023 11:01 AM EDT Specimen requisition ordered. ??Separate Pathology report to follow Jamar Hair MD PATHOLOGY/CYTOLO GY ORDERABLES [facility] [place] [id number] * Surgical Pathology Report (08/05/2023 11:00 AM EDT) Surgical Pathology Report [id number] ? Location: 4T; EA11; A The signing pathologist has (i) examined the relevant preparation(s) for the specimen(s) and (ii) rendered or confirmed the diagnosis(es). . ?Surgical Pathology DIAGNOSIS A - Rectum r/o microscopic colitis, biopsy (Multiple): - ??Colonic mucosa within normal limits. CR-PX Electronically signed by: ?Jazmyne GIRALDO PhD, [facility] Verified: ??08/17/2023 16:08 ??Pathologist Performed at: ??-[facility] Dept. of [place]ology, [place] [address] Cold Press Loader: Frank Turpin MD, FCAP, ??CLIA Certificate: [id number] SPECIMEN(S) SUBMITTED A - rectum r/o microscopic [...] MD PATHOLOGY/CYTOLO GY ORDERABLES Performing Organization Address [facility]/State/ZIP Co de Phone Number [facility] [place] [address] * COLONOSCOPY (08/05/2023 9:59 AM EDT) COLONOSCOPY [facility] Endoscopy ___ Procedure Date: 08/05/2023 9:59 AM ? Patient Name: Tana Cavazos ? N: [id number] ? Date of : 1995 ? Age: 28 ? Order #: [id number] ? Instrument Name: [id number]- [id number] ? ___ Procedure: ? Colonoscopy Indications: ? [...] PROVATION 08/05/2023 9:59 AM EDT Lorna Bal APRN GENERAL SURGICAL ORDERABLES PROVATION documented in this encounter Visit Diagnoses Not on filedocumented in this encounter Active and Recently Administered Medications Care Teams Cosmetician Apprentice Relationship Specialty Start Date End Date Lorna Bal APRN [address] [place] [address] PCP - General Family Medicine 05/27/18 documented as of this encounter
--- OUTSIDE RECORDS SUMMARY | 2023-11-16 16:55 | XMS_ITS | Encounter Summary ---
Author Organization [facility] [place] [address] Care Team Providers Care Type Inspector Name Role Phone Lorna Bal APRN Primary Care Provider +1 -[phone] Encounter Details Date Type Department Care Team (Latest Contact Info) Description 08/24/2023 9:00 AM EDT TH Visit (TeleHealth) [place] [phone] Samantha Crystal APRN [facility] [place] [address] Constipation, unspecified constipation type Social History Tobacco Use Types Packs/Day Years Used Date Smoking Tobacco: Never Smokeless Tobacco: Never Comments:NO SMOKERS IN THE H OME Alcohol Use Standard Drinks/Week Comments No 0 (1 standard drink = 0.6 oz pur e alcohol) [facility] Inpatient Questions Answer Date Recorded [...] this encounter Progress Notes * Samantha Crystal, FRESH FOODS CLERK - 08/24/2023 9:00 AM EDT Gastroenterology Follow Up Telehealth Note Ms. Tana Cavazos is a 28 y.o. female who presents to the section of Gastroenterology for follow upfor constipation. Interval Update: -Here today with Fernanda her protocol officer. -Since her colonoscopy her bowels have been [...] stomach discomfort. She is being followed in [place] after hospital stay for a spinal infection. [...] All Drainage Procedures 06/25/2022 Mich Martino MD [facility] INTERVENTION[facility] RAD IR ALL DRAINAGE PROCEDURES 07/04/2022 IR All Drainage Procedures 07/04/2022 Mich Martino MD [facility] RAD IR ALL DRAINAGE PROCEDURES 07/24/2022 IR All Drainage Procedures 07/24/2022 Anurag Kumar MD [facility] RAD IR ALL DRAINAGE PROCEDURES 09/26/2022 IR All Drainage Procedures 09/26/2022 Jamaal Jenkins, DO [facility] RAD IR DRAIN CHECK/CHANGE/REMOVE 07/01/2022 IR Drain Check/Change/Remove 07/01/2022 Jamaal Jenkins, DO [facility] RAD IR DRAIN CHECK/CHANGE/REMOVE 08/11/2022 IR Drain Check/Change/Remove 08/11/2022 Piter Self MD [facility] INTER[facility] RAD IR DRAIN CHECK/CHANGE/REMOVE 08/25/2022 IR Drain Check/Change/Remove 08/25/2022 Jamaal Jenkins, DO [facility] RAD IR DRAIN CHECK/CHANGE/REMOVE 09/10/2022 IR Drain Check/Change/Remove 09/10/2022 Mich Martino MD [facility] INTERVENT[facility] RAD PRO APPLY OF HIP CASTS, TWO LEGS 08/15/2010 CAST APPLICATION, HIP SPICA, BOTH LEGS performed by BARRERA OLIVER at [facility] MAIN OR PRO COLONOSCOPY, BIOPSY N/A 08/05/2023 COLONOSCOPY FLEXIBLE, WITH BX (WRVU 3.56) performed by Jamar Gastelum MD at [facility] ENDOSCOPY PRO I&D, POST SPINE, LUMB/SACR/LUMBOSAC N/A 05/20/2014 @I & D, OPEN, DEEP ABSCESS, LUMBAR, SACRAL, LUMBOSACRAL performed by Freddy Isbell MD at [facility] MAIN OR PRO I&D, POST SPINE, LUMB/SACR/LUMBOSAC N/A 05/26/2014 @I & D, OPEN, DEEP ABSCESS, LUMBAR, SACRAL, LUMBOSACRAL performed by Freddy Isbell MD at [facility] MAIN OR PRO IMPACT TOOTH REMOV COMP BONY N/A 06/14/2018 SURGICAL EXTRACTIONS, REMOVAL OF IMPACTED TOOTH, COMPLETELY BONY (WRVU 1.93) performed by Keith Cotton MD at [facility] OSC PRO OSTEOTOMY FEMUR SHAFT/SUPRACONDY 08/15/2010 ??OSTEOTOMY, FEMUR SHAFT OR SUPRACONDYLAR W/O FIXATION performed by BARRERA OLIVER at [facility] OR PRO RECONSTRUC HIP SOCKET, RESEC FEM HEAD 08/15/2010 ??ACETABULOPLASTY (GIRDLESTONE), RESECTION FEMORAL HEAD, BILATERAL performed by BARRERA OLIVER [facility] MAIN OR PRO REMOVAL DEEP IMPLANT 08/15/2010 REMOVAL IMPLANT, DEEP, BRUNO performed by BARRERA OLIVER at [facility] MAIN OR PRO REMOVAL ERUPTED TOOTH WITH ELEVATION OF MUCOPERIOSTEAL FLAP N/A 06/14/2018 SURGICAL EXTRACTIONS REQUIRING ELEVATION OF MUCOPERIOSTEAL FLAP AND REMOVAL OF BONE OR SECTION OF TOOTH (WRVU 1.09) performed by Keith Cotton MD at [facility] OSC PRO REMOVE INFUSN DEVICE/PUMP N/A 05/11/2014 REMOVAL OF SPINE INFUSION PUMP performed by Jamaal Samuel MD at [facility] MAIN OR PRO REMOVE SPINAL CANAL CATHETER N/A 05/11/2014 REMOVAL OF INTRATHECAL OR EPIDURAL CATHETER performed by Jamaal Samuel MD at [facility] MAIN OR PRO REPR, DURAL/CSF LEAK, NOT REQ LAMINECTOMY N/A 05/20/2014 @REPAIR DURAL\CSF LEAK,NOT REQUIRING LAMINECTOMY performed by Freddy Isbell MD at [facility] MAIN OR MEDICATIONS: Current Outpatient Medications [...] [Transparent Dressings] Itching and Dermatitis Please use [id number] Cyclobenzaprine Other Reaction(s): Not available Doxycycline Other [...] labs. Theyare requesting [facility] go [facility] ([facility] I will need to request these results [...] documenting encounter after office visit: 5 minutes TOMEKA Carvalho, FRESH FOODS CLERK, SALES REPRESENTATIVE [employer]-[facility] Section of Gastroenterology and Hepatology [place] [phone] documented in this encounter Plan of Treatment Upcoming Encounters Date Type Department Care Team (Late st Contact Info) Description 11/19/2023 2:30 PM EDT TH Visit (TeleHealth) [place] [address] Lilli Joy APRN [facility] [place] [address] 12/03/2023 12:30 PM EDT Office [place] [address] Hollie Ambriz MD [facility] INFECTIOUS [place] [address] 12/03/2023 2:30 PM EDT [place] [phone] Andrade Melvin MD [facility] [place] [address] documented as of this encounter Visit Diagnoses Diagnosis Constipation, unspecified constipation type documented in this encounter Care Teams Type Inspector Relationship Specialty Start Date End Date Lorna Bal, FRESH FOODS CLERK [address] [place] [address] PCP - General Family Medicine 05/27/18 documented as of this encounter
--- OUTSIDE RECORDS SUMMARY | 2023-11-16 16:55 | XMS_ITS | Encounter Summary ---
Author Organization [facility] [place] [address] Care Team Providers Care Professor Of Law Name Role Phone Lorna Bal APRN Primary Care Provider [phone] Reason for Referral * Consultation (Routine) - Authorized Specialty Diagnoses / Procedures Referred By Contac t Referred To Contact Infectious Diseases Diagnoses Spinal abscess Hollie Ambriz MD [facility] [place] [address] Hollie Ambriz MD [facility] [place] [address] Referral ID Status Reason Start Date Expiration Date Visits Requested Visits Authorized [id number] Authorized Assume Subset of Care 11/02/2023 11/01/2024 1 1 * Home Health Care (Routine) - Authorized Specialty Diagnoses / Procedures Referred By Contac t Referred To Contact Diagnoses Spinal abscess Wally Rosen MD [facility] [address] Home Health & [address] [place] [address] Referral ID Status Reason Start Date Expiration Date Visits Requested Visits Authorized [id number] Authorized Consult, Test & Treat 11/03/2023 05/01/2024 999 999 * Diagnostic Test (Routine) - Authorized Specialty Diagnoses / Procedures Referred By Contac t Referred To Contact Radiology Diagnoses Abscess Procedures IR Drain Check/Change/Remove Andrade Melvin MD [facility] [place] [address] [place] [address] Referral ID Status Reason Start Date Expiration Date Visits Requested Visits Authorized [id number] Authorized Specialty Service Requested 10/30/2023 05/01/2025 1 1 Reason for Visit * Reason Comments Abscess In back * Auth/Cert (Routine) Specialty Diagnoses / Procedures Referred By Contac t Referred To Contact Diagnoses Abscess Procedures EMERGENCY IPI Sharron Winters MD [facility] [place] [address] [facility] Referral ID Status Reason Start Date Expiration Date Visits Re quested Visits Authorized [id number] 1 1 Encounter Details Date Type Department Care Team (Latest Contact Info) Description 10/28/2023 8:05 PM EDT - 11/03/2023 5:25 PM EDT Hospital Encounter Medical Specialites Unit Level 1 [place] [address] Siomara Hernandez MD [facility] [place] [address] Andrade Ocampo [place] [facility] [place] [address] [place] [address] [place] [address] [place] [address] Abscess; Spinal abscess Discharge Disposition: Home with VNA Social History Tobacco Use Types Packs/Day Years Used Date Smoking Tobacco: Never Passive Smoke Exposure: Never Smokeless Tobacco: Never Comments:NO SMOKERS IN THE H OME Alcohol Use Standard Drinks/Week Comments No 0 (1 standard drink = 0.6 oz pur e alcohol) [facility] Utilities Answer Date Recorded In the past 12 months has th e [email or web address], gas, oil, or water Yippy threatened to shut off services in your [...] any time in the past 12 m [facility], were you homeless or living in a prison (including now)? No 10/29/2023 DH IPV Inpatient [...] Tana Cavazos Patient Age: 28 y.o. Language: Irish Race: White Ethnicity: Not nor Admit date: [...] please contact your inpatient physician through the [facility] Research/Program Director . Issues afterhours and on weekends will [...] inflammatory markers. Tana was then brought to [facility], where she has been receiving her medical [...] 10/28/2023 9:50 PM) Result Value WORKSTATION ID [id number] Impression Focal heterogeneous organizing collection at the [...] who have questions please contact the health hospice care transitions coordinator that requested your imaging first. Abdomen 1 view (Generic) (Exam End: 11/01/2023 10:14 PM) Result Value WORKSTATION ID [id number] Impression 1. Rectal distention with stool. 2. No evidence of obstruction. 3. Bony demineralization, LEFT hip dysplasia, Mcnair rods, severe scoliosis Thank you for letting us participate in the care of this patient. If you are a health care provider and have any questions regarding this report, please contact the number below. For patients who have questions please contact the health hospice care transitions coordinator that requested your imaging first. PICC Placement Over 5 Years with Imaging Guidance (IV Team) (Exam End: 11/03/2023 11:19 AM) Result Value WORKSTATION ID [id number] Impression Satisfactory position of left PICC. I [...] who have questions please contact the health hospice care transitions coordinator that requested your imaging first. Pending Studies and Lab Data: none Discharge Conditions/Prognosis: stable Discharge to: home with OPAT Updated Allergies/ADRs: Allergies Allergen Reactions Fluoxetine Other (See Comments) HIVES, HEART RACES Tegaderm [Transparent Dressings] Itching and Dermatitis Please use [id number] Cyclobenzaprine Other Reaction(s): Not available Doxycycline Other (See Comments) Cough, rash Penicillins Immunizations Given this Hospitalization: Immunization History Administered Date(s) Administered Influenza (Novel R4S3-94) Injectable 02/25/2009 Influenza Trivalent w/Preservative 04/25/2011 Influenza [...] for 6 weeks Your Inpatient Doctor(s) at [facility]: Paola Carrington and Danita General Instructions None Future Appointments and Orders Future Appointments and Orders Future Appointments Provider Department Dept Phone 11/30/2023 12:50 PM [facility] IR ROOM 4 Radiology at [facility] Arrive at: [facility]Z RADIOLOGY [phone] Please expect a call from a radiology nurse within 3 days of your exam, you will need to follow theinstructions given at that time. Future Orders Complete By Expires IR Drain Check/Change/Remove [[id number] Custom] 11/30/2023 (Approximate) 05/31/2024 Process Instructions: Scheduling Instructions: Comments: Questions: Where will study be performed?: [facility] Radiology To be scheduled: Next available [...] Recommendation for Post Discharge IV Antibiotic Management [HJQ157 CPT(R)] As directed Process Instructions: If no progress note charted, please enter Clinical details in comments. Scheduling Instructions: Comments: - If this order was signed greater than 72 hours prior to [facility] discharge, please call to confirm the accuracy of this order. Please Fax all results to: [facility] Program Infectious Disease Section [facility] [place], [place] [address] FAX: - After hours, please contact the Infectious Disease Physician sales service professional at . - Line care instructions - see flush/heparin orders. Facilities may follow organizational policies/practices regarding heparin. - care home for medication administration/upholstery sewer and catheter care/maintenance authorized. - CVC/PICC Dressing Change weekly and PRN Please use CHG or Bio Patch RN: Please care for PICC line including dressing changes weekly and prn. Please draw labs every Thursday and PRN and fax results to [facility] at [phone]. Please draw labs off PICC line. Please see [facility] for lab draw details. Please RN visit for IV ABX teaching and ongoing assessment. Custodial for Medication Administration/Hookup and catheter care/maintenance: - Teach Patient/Caregiver goals/self-monitoring/therapy administration to independence per the Nursing Care Plan. - care home visit frequency; initial, weekly and 2 PRN [...] Osteomyelitis and hardware infection of lower mid human resources communications manager to sacral region of spine S/P drain placement on 10/30 Microorganisms being treated: Unknown Special Instructions: After IV ABX, should transition back to prison suppression with TMP-SMX Antibiotic: Ceftriaxone 2G IV [...] Tana Cavazos for admission to Home Health. [address] [place] [address] (home) [phone] (work) Date of : 1995 Inpatient DOCUMENTATION FOR VNA SERVICES (INCLUDING THOSE PATIENTS WITH MEDICARE COVERAGE REQUIRING HOME VNA SERVICES AND/OR HOSPICE SERVICES) PATIENT'S LOCATION: Tana Cavazos [address] [place] [phone] (home) Cell: Telephone Information: Railroad Brake Repairer's Name: Fannie Villarreal (Guardian) [phone] (M) In discussion with the attending physician, it is certified that this patient is under their care and that they, or a Nurse Practitioner, Clinical Nurse specialist or Physician Courtesy Driver who is working directly with them, had [...] routine PICC care) HOME HEALTH CARE AGENCY: [facility] [address] [address] START OF CARE: within 24-48 hours of discharge Questions: Disciplines Requested: Nursing Recurring Lab Work Interval Expires CBC (with Diff) [[id number] Custom] Once a week until 01/03/2024 01/03/2024 Process Instructions: Scheduling Instructions: Comments: To be Drawn on Thursday. Please fax orders to [facility] [place] at [phone]. Questions: Comprehensive metabolic panel (non-fasting) [LAB17 Custom] Once a week until 01/03/2024 01/03/2024 Process Instructions: Scheduling Instructions: Comments: To be Drawn on Thursday. Please fax orders to [facility] ID at [phone]. Questions: CRP, acute inflammation [[id number] Custom] Once a week until 01/03/2024 01/03/2024 Process Instructions: Scheduling Instructions: Comments: To be Drawn on Thursday. Please fax orders to [facility] ID at [phone]. Questions: Discharge References/Attachments None documented in this [...] for 6 weeks Your Inpatient Doctor(s) at [facility]: Paola Carrington and Danita documented in this [...] spent >30 minutes (Day of Discharge Code 25390) involved in the final examination of the [...] minimumof two midnights or is on the [facility] inpatient only procedure list (status C) due [...] 10/28/2023 9:50 PM) Result Value WORKSTATION ID [id number] Impression Focal heterogeneous organizing collection at the [...] who have questions please contact the health hospice care transitions coordinator that requested your imaging first. Abdomen 1 view (Generic) (Exam End: 11/01/2023 10:14 PM) Result Value WORKSTATION ID [id number] Impression 1. Rectal distention with stool. 2. No evidence of obstruction. 3. Bony demineralization, LEFT hip dysplasia, Mcnair rods, severe scoliosis Thank you for letting us participate in the care of this patient. If you are a health care provider and have any questions regarding this report, please contact the number below. For patients who have questions please contact the health hospice care transitions coordinator that requested your imaging first. : No [...] and washout with complex plastics closure at [facility] in [place] on 02/11, after which she was treated [...] which she should likely transition back to prison suppression with TMP-SMX. Recommendations: - Stop daptomycin - Continue IV ceftriaxone 2g daily for a total of 6 weeks, ending on 12/11/2023 - After finishing above, should transition back to vermin exterminator suppression with TMP-SMX - Cleared from ID perspective for PICC placement - Check CBC w/ diff, CMP, and CRP weekly to monitor for clinical progression and antimicrobial toxicity - We will arrange ID follow-up appointment prior to completion of IV ceftriaxone I spent a total of 50 minutes on the [id number]-is-gkfl encounter, chart review, documentation, and coordination of [...] Rosen MD - 11/01/2023 11:54 AM EDT [facility] Medicine Attending Daily Progress Note Hospital [...] minimumof two midnights or is on the [facility] inpatient only procedure list (status C) due [...] 10/28/2023 9:50 PM) Result Value WORKSTATION ID [id number] Impression Focal heterogeneous organizing collection at the [...] who have questions please contact the health hospice care transitions coordinator that requested your imaging first. : No [...] minimumof two midnights or is on the [facility] inpatient only procedure list (status C) due [...] 10/28/2023 9:50 PM) Result Value WORKSTATION ID [id number] Impression Focal heterogeneous organizing collection at the [...] who have questions please contact the health hospice care transitions coordinator that requested your imaging first. : No [...] check follow up in 4 weeks ordered, surgery scheduler updated. Willis Calero DO, MBA Interventional Radiology 10/31/2023 [id number] * Dimple Jimenez RN - 10/30/2023 3:33 PM EDT Called report to EUNICE Kevin at [phone] * Dimple Jimenez RN - 10/30/2023 3:04 PM EDT [facility] Name: Tana Cavazos Date of : 1995 AGE: 28 y.o. Address: [address] [place], [place] [address] [address] (home) [phone] (work) Mobile: Telephone Information: Referring Provider: None [...] [Transparent Dressings] Itching and Dermatitis Please use [id number] Cyclobenzaprine Other Reaction(s): Not available Doxycycline Other [...] minimumof two midnights or is on the [facility] inpatient only procedure list (status C) due [...] 10/28/2023 9:50 PM) Result Value WORKSTATION ID [id number] Impression Focal heterogeneous organizing collection at the [...] who have questions please contact the health hospice care transitions coordinator that requested your imaging first. : No results found for: DIAGLINE, QTCCALC * Kristina Rodriguez RN - 10/30/2023 9:26 AM EDT IR for drain placement today for a paraspinal fluid collection; then ID will need to be consulted for results and to decide on OPAT They have requested referrals to: [address] or Note routed to a Cotton Stripper who will communicate referrals to facilities and [...] minimumof two midnights or is on the [facility] inpatient only procedure list (status C) due [...] 10/28/2023 9:50 PM) Result Value WORKSTATION ID [id number] Impression Focal heterogeneous organizing collection at the [...] who have questions please contact the health hospice care transitions coordinator that requested your imaging first. : No [...] Procedure Request: Interventional Radiology Service contacted by [facility] at 12:15 PM regarding the procedure [...] (bilateral); Reconstruc Hip Socket, Resec Fem Head (33922) (08/15/2010); Apply Of Hip Casts, Two Legs (76783) (08/15/2010); Removal Deep Implant (27033) (08/15/2010); Osteotomy Femur Shaft/Supracondy (70363) (2010); Remove Spinal Canal Catheter (91313) (N/A, 05/11/2014); Remove Infusn Device/Pump (29603) (N/A, 05/11/2014); I&D, Post Spine, Lumb/Sacr/Lumbosac (75646) (N/A, 05/20/2014); Repr, Dural/Csf Leak, Not Req Laminectomy (26971) (N/A, 05/20/2014); I&D, Post Spine, Lumb/Sacr/Lumbosac (31696) (N/A, 05/26/2014); Impact Tooth Remov Comp Bony (D7240) (N/A, 06/14/2018); Rem Imp Tooth W Mucoper Flp (D7210) (N/A, 06/14/2018); IR All Drainage Procedures (06/25/2022); IR Drain Check/Change/Remove (07/01/2022); IR All Drainage Procedures (07/04/2022); IR All Drainage Procedures (07/24/2022); IR Drain Check/Change/Remove (08/11/2022); IR Drain Check/Change/Remove (08/25/2022); IR Drain Check/Change/Remove (09/10/2022); IR All Drainage Procedures (09/26/2022); and Colonoscopy, Biopsy (53679) (N/A, 08/05/2023). Medications: Current Outpatient Medications Medication [...] Interventional & Diagnostic Radiology IR Team Pager: [phone] Personal Pager [phone] 10/29/2023 * Sharron Winters MD - 10/29/2023 [...] inflammatory markers. Tana was then brought [place] [facility] where she has been receiving her medical [...] All Drainage Procedures 06/25/2022 Mich Martino MD [facility] INTERVENTIONL RAD IR ALL DRAINAGE PROCEDURES 07/04/2022 IR All Drainage Procedures 07/04/2022 Mich Martino MD [facility] INTERVENTIONL RAD IR ALL DRAINAGE PROCEDURES 07/24/2022 IR All Drainage Procedures 07/24/2022 Anurag Kumar MD [facility] INTERVENTIONL RAD IR ALL DRAINAGE PROCEDURES 09/26/2022 IR All Drainage Procedures 09/26/2022 Jamaal Jenkins, DO [facility] INTERVENTIONL RAD IR DRAIN CHECK/CHANGE/REMOVE 07/01/2022 IR Drain Check/Change/Remove 07/01/2022 Jamaal Jenkins, DO [facility] INTERVENTIONL RAD IR DRAIN CHECK/CHANGE/REMOVE 08/11/2022 IR Drain Check/Change/Remove 08/11/2022 Piter Self MD [facility] INTERVENTIONL RAD IR DRAIN CHECK/CHANGE/REMOVE 08/25/2022 IR Drain Check/Change/Remove 08/25/2022 Jamaal Jenkins, [facility] INTERVENTIONL RAD IR DRAIN CHECK/CHANGE/REMOVE 09/10/2022 IR Drain Check/Change/Remove 09/10/2022 Mich Martino MD [facility] INTERVENTIONL RAD PRO APPLY OF HIP CASTS, TWO LEGS 08/15/2010 CAST APPLICATION, HIP SPICA, BOTH LEGS performed by BARRERA OLIVER at [facility] MAIN OR PRO COLONOSCOPY, BIOPSY N/A 08/05/2023 COLONOSCOPY FLEXIBLE, WITH BX (WRVU 3.56) performed by Jamar Gastelum MD at [facility] ENDOSCOPY PRO I&D, POST SPINE, LUMB/SACR/LUMBOSAC N/A 05/20/2014 @I & D, OPEN, DEEP ABSCESS, LUMBAR, SACRAL, LUMBOSACRAL performed by Freddy Isbell MD at [facility] MAIN OR PRO I&D, POST SPINE, LUMB/SACR/LUMBOSAC N/A 05/26/2014 @I & D, OPEN, DEEP ABSCESS, LUMBAR, SACRAL, LUMBOSACRAL performed by Freddy Isbell MD at [facility] MAIN OR PRO IMPACT TOOTH REMOV COMP BONY N/A 06/14/2018 SURGICAL EXTRACTIONS, REMOVAL OF IMPACTED TOOTH, COMPLETELY BONY (WRVU 1.93) performed by Keith Cotton MD at [facility] OSC PRO OSTEOTOMY FEMUR SHAFT/SUPRACONDY 08/15/2010 ??OSTEOTOMY, FEMUR SHAFT OR SUPRACONDYLAR W/O FIXATION performed by BARRERA OLIVER at [facility] MAIN OR PRO RECONSTRUC HIP SOCKET, RESEC FEM HEAD 08/15/2010 ??ACETABULOPLASTY (GIRDLESTONE), RESECTION FEMORAL HEAD, BILATERAL performed by BARRERA OLIVER [facility] MAIN OR PRO REMOVAL DEEP IMPLANT 08/15/2010 REMOVAL IMPLANT, DEEP, BRUNO performed by BARRERA OLIVER at [facility] MAIN OR PRO REMOVAL ERUPTED TOOTH WITH ELEVATION OF MUCOPERIOSTEAL FLAP N/A 06/14/2018 SURGICAL EXTRACTIONS REQUIRING ELEVATION OF MUCOPERIOSTEAL FLAP AND REMOVAL OF BONE OR SECTION OF TOOTH (WRVU 1.09) performed by Keith Cotton MD at [facility] OSC PRO REMOVE INFUSN DEVICE/PUMP N/A 05/11/2014 REMOVAL OF SPINE INFUSION PUMP performed by Jamaal Samuel MD at [facility] MAIN OR PRO REMOVE SPINAL CANAL CATHETER N/A 05/11/2014 REMOVAL OF INTRATHECAL OR EPIDURAL CATHETER performed by Jamaal Samuel MD at [facility] MAIN OR PRO REPR, DURAL/CSF LEAK, NOT REQ LAMINECTOMY N/A 05/20/2014 @REPAIR DURAL\CSF LEAK,NOT REQUIRING LAMINECTOMY performed by Freddy Isbell MD at [facility] MAIN OR Prior To Admission Medications: (Not in a hospital admission) Allergies: Allergies Allergen Reactions Fluoxetine Other (See Comments) HIVES, HEART RACES Tegaderm [Transparent Dressings] Itching and Dermatitis Please use [id number] Cyclobenzaprine Other Reaction(s): Not available Doxycycline Other [...] Resource Strain: Low Risk (02/21/2023) Received from [facility] Overall Financial Resource Strain (CARDIA) Difficulty of Paying Living Expenses: Not very hard Food Insecurity: Unknown (02/21/2023) Received from [facility] Hunger Vital Sign Worried About Running Out of Food in the Last Year: Never true Ran Out of Food in the Last Year: Not on file Transportation Needs: No Transportation Needs (02/21/2023) Received from [facility] PRAPARE - Transportation Lack of Transportation (Medical): No Lack of Transportation (Non-Medical): No Physical Activity: Not on file Intimate Partner Violence: Unknown (02/21/2023) Received from [facility] Humiliation, Afraid, Rape, and Kick questionnaire Fear of Current or Ex-Partner: No Emotionally Abused: Not on file Physically Abused: Not on file Sexually Abused: Not on file Housing Stability: Unknown (02/21/2023) Received from [facility] Housing Stability Vital Sign Unable to Pay for Housing in the Last Year: Not on file Number of Places Lived in the Last Year: Not on file Unstable Housing in the Last Year: No Immunizations: Immunization History Administered Date(s) Administered Influenza (Novel B3L8-20) Injectable 02/25/2009 Influenza Trivalent w/Preservative 04/25/2011 Influenza [...] Regular diet DVT Prophylaxis: LMWH Anticipated Disposition: prison care facility Code Status: Attempt Cardiopulmonary Resuscitation [...] to the planned procedure. Hand Hygiene: The laborer car barn did perform hand hygiene prior to line insertion. Catheter type: PICC Lot number: [id number] Procedure Technique: Skin was prepped with chlorhexidine. [...] outpatient blood draw. Patient was referred [place] [facility] by infectious disease for a CT of [...] nursing note reviewed. Exam conducted with a residential treatment staff present. HENT: Head: Normocephalic and atraumatic. Cardiovascular: [...] who have questions please contact the health hospice care transitions coordinator that requested your imaging first. Procedures Assessment [...] fluid collection treated as likely infections on prison antibiotics currently Bactrim presenting with about 5 [...] surgery. Initially surgery believed to be at [facility]. Was on antibiotics until a month [...] from [place] [address] [facility] Vascular Access Service Peripherally Inserted Central Catheter (PICC) Teaching Sheet Peripherally inserted central catheters (wdgh-ek-ukdj) (PICC) are used when you need IV [...] midline catheter? PICC lines are used for vermin exterminator treatments. PICC lines may be used for [...] can be set up via the nurse Supervisor Twisting Department to help you. What are possible complications [...] Efficacy, Safety, Use, and Administration of [employer], [employer] 2005 * Plan of Care - Arielle Patino RN - 11/03/2023 3:34 AM EDT OUTCOME EVALUATION NOTE: OUTCOME SUMMARY: Pt tachy. MD alerted. Otherwise VSS on RA. Pt nonverbal. Unable to answer orientation questions. Poker In at bedside. 1x BM this shift. CARMELLA [...] infusion. Please page the PICC room at [phone] or call [phone] between the hours of 7:00am and 5:30pm Thursday-Thursday for PICC line placement/scheduling. After hours the Vascular Access Service can be reached at anytime on pager [phone] PICCrequests for the following day. [...] Home Health Services: Registered Nurse Agency Referrals: [facility] [address] [place] [address] or Transportation: family or friend will provide Plan going forward: Care Management will continue to follow and assist with discharge planning and coordination of care as indicated. Anticipated Date of Discharge: 11/06/2023 Kristina Rodriguez BEHAVIOR SPECIALIST traffic officer [phone] * Plan of Care - Arielle Patino RN - 11/02/2023 5:29 AM EDT OUTCOME EVALUATION NOTE: OUTCOME SUMMARY: Pt VSS on RA. Pt nonverbal. Unable to answer orientation questions. Moans and frowns when in pain. Pain medication given per JUN. Poker In at bedside. 1x BM this shift. CARMELLA [...] - Initial Consultation ID: Tana Cavazos Room: [address] [place] [address] Consulting Service: Hospital Medicine Consulting Attending: Reebl Carrington MD Admission Date: 10/28/2023 Reason for Consult: Recurrent spinal infection HPI: Tana Cavazos is a 28 y.o. female with Hx of cerebral palsy w/ spastic quadriplegia, non-verbal at baseline, as well as prior posterolateral spinal fusion in 2008 and bilateral Girdlestones in 2010, who was [place] [facility] [place] for redness and tenderness [...] site, for which she was readmitted to [facility] on 07[place]22 to manage this issue. On arrival to [facility], she was afebrile without leukocytosis. Repeat of [...] evaluated by spine surgery multiple times at [facility] and was not deemeda candidate for operative intervention. Then, she was seen at [facility] for a second surgical opinion. On 08/27/2022, superficialCxs there revealed growth of Staph hemolyticus and capitis. She was initially continued on doxycycline for this but subsequently switched to TMP-SMX in early September 2022 given ?possible allergic reaction. She also did undergo re-insertion of IR drains on 09/26, with Cxs again returning negative. Eventually, she got a third surgical opinion at [facility] in [place] given the need for plastics closure of [...] continued to follow in ID clinic at [facility]. We discussed the equipoise as to whether [...] [Transparent Dressings] Itching and Dermatitis Please use [id number] Cyclobenzaprine Other Reaction(s): Not available Doxycycline Other [...] and washout with complex plastics closure at [facility] on 02/11, after which she was [...] a total of 80 minutes on the [id number] encounter, chart review, documentation, and coordination of [...] Appropriate) * Consult Note - Kelly Cummings, [facility] - 10/30/2023 4:10 PM EDT [...] have. Alternately, during off-hours you may call [phone] to contact a pharmacist. [facility] Pharmacokinetics Note Drug: Vancomycin Pharmacokinetic target: AUC24 (range) 400-600 mg/L.hr Tana Cavazos is a(n) 28 years old female initiating Vancomycin for paraspinal infection, concern forosteo Recent measured serum creatinine values: 10/30/2023 04:48 0.33 mg/dL 10/29/2023 08:37 0.31 mg/dL 10/28/2023 21:00 0.25 mg/dL Assessment: Analysis using BleepBleeps[employer] gives the following patient-specific pharmacokinetic parameters: CL: [...] chat or the wound care team at [phone] with skin and wound care concerns or [...] inflammatory markers. Tana was then brought to [facility], where she has been receiving her medical [...] were you homeless or living in a prison (including now)?: No In the past 12 months has the [email or web address], gas, oil, or water Yippy threatened to shut off services in your [...] bed Home Address confirmed as: [address] [facility] [address] Social & Family Supports: All names listed below confirmed with patient as current and correct Extended Emergency Contact Information Primary Emergency Contact: [place] [address] [facility] Mobile Relation: Guardianship Secondary Emergency Contact: Fernanda Sorensen Mobile Relation: Paid Caregiver Mother: Anderson Thorpe Address: [address] [address] [facility] Home Phone: [phone] Mobile Current Care Provided by: other (see comments) Provides Primary Care For: no one, unable/limited ability to care for self Caregiver if needed: other (see comments) (Fannie and Fernanda) Quality of Family relationships: helpful, supportive, involved Community Resources being provided currently: homecare agency ([facility] for blood draws.) Behavioral Health History: [...] Insurance: N/A Prescription Coverage: Yes Preferred Pharmacy: [facility] Home Delivery - [facility] [place], operated [facility] [address] [facility] [address] [facility] [address] [facility] [address] [place] [id number] Lam[place] Status: Patient is a : No Primary Care Provider confirmed: Lorna Bal, MEDICAL PHYSICS RESEARCHER [phone] Patient/Caregiver Goals of Treatment: Fannie anticipates pt to return home upon discharge. Potential Needs for Transition of Care: home health care Agency Referrals: I have met with the artist representative to: discuss discharge planning needs. provide the [facility], Office of Care Management letter from the Water Project Manager pertaining to rehab referrals. provide a letter describing our affiliations within the [facility] and educate about their right to choose where referrals are sent. provide a list of Home Health Agencies / Durable Medical Equipment vendors which serve their preferred geographic area. provided patient with [facility] Star Quality Rating handout. They have requested referrals to: [facility] [address] [place] [address] Note routed to a Cotton Stripper who will communicate referrals to facilities and [...] care as indicated. Alicja Franklin RN, BSN, ACM-ROUTE DELIVERY MANAGERwafer polisher Office of Care Management Pager: [phone] * Consult Note - Zach Pierre RPH - 10/29/2023 3:01 AM EDT [facility] Med[facility] List Update for Medication Reconciliation 10/29/23 3:01 AM Tana Cavazos 1995 Allergies Allergen Reactions Fluoxetine Other (See Comments) HIVES, HEART RACES Tegaderm [Transparent Dressings] Itching and Dermatitis Please use [id number] Cyclobenzaprine Other Reaction(s): Not available Doxycycline Other (See Comments) Cough, rash Penicillins Person Interviewed: [facility] Quality of Interview/accuracy of medication list: excellent Sources used to compile medication list: [] Epic medication list [] SureScripts/Dispense Report [] PCP/Specialist list [x] Retail pharmacy [] Patient list [] MAR [] Other Changes made to home medication list: Additions: Bisacodyl prn Deletions: Nystatin, Probiotic, Vitamin, Psyllium Changes: None Additional Notes: [facility] Medication List Recommended changes: None The home [...] the patient underwent a revision surgery in [place] that involved removal of a R [...] All Drainage Procedures 06/25/2022 Mich Martino MD [facility] INTERVENTIONL RAD IR ALL DRAINAGE PROCEDURES 07/04/2022 IR All Drainage Procedures 07/04/2022 Mich Martino MD [facility] INTERVENTIONL RAD IR ALL DRAINAGE PROCEDURES 07/24/2022 IR All Drainage Procedures 07/24/2022 Anurag Kumar MD [facility] INTERVENTIONL RAD IR ALL DRAINAGE PROCEDURES 09/26/2022 IR All Drainage Procedures 09/26/2022 Jamaal Jenkins, DO [facility] INTERVENTIONL RAD IR DRAIN CHECK/CHANGE/REMOVE 07/01/2022 IR Drain Check/Change/Remove 07/01/2022 Jamaal Jenkins, DO [facility] INTERVENTIONL RAD IR DRAIN CHECK/CHANGE/REMOVE 08/11/2022 IR Drain Check/Change/Remove 08/11/2022 Piter Self MD [facility] INTERVENTIONL RAD IR DRAIN CHECK/CHANGE/REMOVE 08/25/2022 IR Drain Check/Change/Remove 08/25/2022 Jamaal Jenkins, DO [facility] INTERVENTIONL RAD IR DRAIN CHECK/CHANGE/REMOVE 09/10/2022 IR Drain Check/Change/Remove 09/10/2022 Mich Martino MD [facility] INTERVENTIONL RAD PRO APPLY OF HIP CASTS, TWO LEGS 08/15/2010 CAST APPLICATION, HIP SPICA, BOTH LEGS performed by BARRERA OLIVER at [facility] MAIN OR PRO COLONOSCOPY, BIOPSY N/A 08/05/2023 COLONOSCOPY FLEXIBLE, WITH BX (WRVU 3.56) performed by Jamar Gastelum MD at [facility] ENDOSCOPY PRO I&D, POST SPINE, LUMB/SACR/LUMBOSAC N/A 05/20/2014 @I & D, OPEN, DEEP ABSCESS, LUMBAR, SACRAL, LUMBOSACRAL performed by Freddy Isbell MD at [facility] MAIN OR PRO I&D, POST SPINE, LUMB/SACR/LUMBOSAC N/A 05/26/2014 @I & D, OPEN, DEEP ABSCESS, LUMBAR, SACRAL, LUMBOSACRAL performed by Freddy Isbell MD at [facility] MAIN OR PRO IMPACT TOOTH REMOV COMP BONY N/A 06/14/2018 SURGICAL EXTRACTIONS, REMOVAL OF IMPACTED TOOTH, COMPLETELY BONY (WRVU 1.93) performed by Keith Cotton MD at [facility] OSC PRO OSTEOTOMY FEMUR SHAFT/SUPRACONDY 08/15/2010 ??OSTEOTOMY, FEMUR SHAFT OR SUPRACONDYLAR W/O FIXATION performed by BARRERA OLIVER at [facility] MAIN OR PRO RECONSTRUC HIP SOCKET, RESEC FEM HEAD 08/15/2010 ??ACETABULOPLASTY (GIRDLESTONE), RESECTION FEMORAL HEAD, BILATERAL performed by BARRERA OLIVER [facility] MAIN OR PRO REMOVAL DEEP IMPLANT 08/15/2010 REMOVAL IMPLANT, DEEP, BRUNO performed by BARRERA OLIVER at [facility] MAIN OR PRO REMOVAL ERUPTED TOOTH WITH ELEVATION OF MUCOPERIOSTEAL FLAP N/A 06/14/2018 SURGICAL EXTRACTIONS REQUIRING ELEVATION OF MUCOPERIOSTEAL FLAP AND REMOVAL OF BONE OR SECTION OF TOOTH (WRVU 1.09) performed by Keith Cotton MD at [facility] OSC PRO REMOVE INFUSN DEVICE/PUMP N/A 05/11/2014 REMOVAL OF SPINE INFUSION PUMP performed by Jamaal Samuel MD at [facility] MAIN OR PRO REMOVE SPINAL CANAL CATHETER N/A 05/11/2014 REMOVAL OF INTRATHECAL OR EPIDURAL CATHETER performed by Jamaal Samuel MD at [facility] MAIN OR PRO REPR, DURAL/CSF LEAK, NOT REQ LAMINECTOMY N/A 05/20/2014 @REPAIR DURAL\CSF LEAK,NOT REQUIRING LAMINECTOMY performed by Freddy Isbell MD at [facility] MAIN OR Home Medications: (Not in a hospital admission) Allergies: Allergies Allergen Reactions Fluoxetine Other (See Comments) HIVES, HEART RACES Tegaderm [Transparent Dressings] Itching and Dermatitis Please use [id number] Cyclobenzaprine Other Reaction(s): Not available Doxycycline Other [...] course. James Swanson IV, DO Orthopaedic Surgery, [id number] ADDENDUM: Case reviewed with Dr. Galvan. Plan [...] she had I+D with hardware exchange at [facility] last year. She was doing well until [...] EDT TH Visit (TeleHealth) Infectious Disease at [place] [id number] Lilli Joy APR[place] [facility] [place] [address] 12/03/2023 12:30 PM EDT Office Visit Infectious Disease at [place] [id number] Hollie Ambriz MD [facility] [place] [address] 12/03/2023 2:30 PM EDT Appointment Radiology at [place] [id number] Andrade Melvin MD [facility] [place] [address] Scheduled Orders Name Type Priority Associated Diagnoses [...] Place PICC Line: Contact Vascular Access Page [phone] Extremity to exclude: No restrictions; Is PICC [...] to the planned procedure. Hand Hygiene: The laborer car barn did perform hand hygiene prior to line insertion. Catheter type: PICC Lot number: [id number] Procedure Technique: Skin was prepped with chlorhexidine. [...] 2 cm Tip in SVC per MD Bnenie. The line was placed over a guidewire. [...] Guidance (IV Team) (11/03/2023 11:19 AM EDT) Revivn Signature WORKSTATION ID [id number] RAD Anatomical Region Laterality Modality N/A Radio [...] who have questions please contact the health hospice care transitions coordinator that requested your imaging first. ? Narrative [...] patients who have questions please contactthe health hospice care transitions coordinator that requested your imaging first. Wally Rosen MD IMG FLUORO ORDERABLE S * Differential, Automated (11/02/2023 5:26 AM EDT) Neutrophils % 69.0 % [facility] Neutr Abs (ANC) 5.16 1.70 - 6.10 x10(3)/[facility] Lymphocytes % 21.7 % [facility] Lymphocytes Abs 1.6 0.9 - 3.2 x10(3)/[facility] Monocytes % 6.8 % [facility] Monocyte Abs 0.5 0.3 - 0.9 x10(3)/[facility] Eosinophils % 1.6 % [facility] Eosinophils Abs 0.1 0.0 - 0.4 x10(3)/[facility] Basophils % 0.5 % [facility] Basophils Abs 0.0 0.0 - 0.1 x10(3)/[facility] Immature Gran % 0.40 % [facility] Comment: Immature granulocytes(IG's)percentage and absolute count will include metamyelocytes, myelocytes, and promyelocytes. Blood smears from CBCs yielding IG's will be scanned manually for concordance. If this scan disagrees with the automated IG or if promyelocytes are noted, a manual differential will be performed. Debora Gran Abs 0.03 0.00 - 0.04 x10(3)/[facility] Blood 11/02/2023 5:26 AM EDT 11/02/2023 5:43 AM EDT Narrative Resulting Agency Comment Spec In Lab Wally Rosen MD HEMATOLOGY ORDERABLE S [facility] [place] [address] * (ABNORMAL) Hemogram (11/02/2023 5:26 AM EDT) WBC 7.5 4.0 - 9.5 x10(3)/[facility] RBC 3.89(L) 4.00 - 5.21 x10(6)/[facility] Hemoglobin 11.1(L) 11.7 - 15.5 g/dL [facility] Hematocrit 33.8(L) 35.7 - 45.8 % [facility] MCV 86.9 82.6 - 94.4 fL [facility] MCH 28.5 27.1 - 32.0 pg [facility] MCHC 32.8 31.7 - 35.0 g/dL [facility] Platelets 477(H) 145 - 357 x10(3)/[facility] RDWSD 45.1 37.0 - 46.0 [facility] RDWCV 14.3(H) 11.5 - 14.1 % [facility] MPV 9.1 7.6 - 12.9 [facility] nRBC % Auto 0.0 % [facility] nRBC Abs Auto 0.000 0.000 - 0.000 x10(3)/[facility] Blood 11/02/2023 5:26 AM EDT 11/02/2023 5:43 AM EDT Narrative Resulting Agency Comment Spec In Lab Wally Rosen MD HEMATOLOGY ORDERABLE S [facility] [place] [address] * CK (11/02/2023 5:26 AM EDT) CK, Total 14 0 - 160 unit/L [facility] Blood 11/02/2023 5:26 AM EDT 11/02/2023 5:44 AM EDT Narrative Resulting Agency Comment Spec In Lab Wally Rosen MD CHEMISTRY ORDERABLES Performing Organization Address City/[facility]/ZIP Co de Phone Number [facility] [place] [address] * (ABNORMAL) Comprehensive metabolic panel (non-fasting) (11/02/2023 5:26 AM EDT) Glucose Lvl 109 65 - 199 mg/dL [facility] Comment:Diabetes: >=200 mg/d L plus symptoms BUN 13 8 - 18 mg/dL [facility] Comment:result rechecked-mg Creatinine 0.27(L) 0.70 - 1.20 mg/dL [facility] Sodium 138 135 - 145 mmol/L [facility] Potassium 3.9 3.5 - 5.0 mmol/L [facility] Comment: Please note: ??Patients with WBC >100,000 may have falsely elevated Potassium levels. ??For accurate Potassium quantification in these patients send serum separator tube (gold top) for subsequent determinations. ??Contact the Clinical Chemistry Laboratory if there are any questions. Chloride 104 98 - 107 mmol/L [facility] CO2 21(L) 22 - 31 mmol/L [facility] Anion Gap 13 5 - 15 mmol/L [facility] Calcium 9.8 8.5 - 10.5 mg/dL [facility] Total Protein 7.2 6.1 - 8.0 g/dL [facility] Albumin 3.5 3.2 - 5.2 g/dL [facility] AST 13 0 - 30 unit/L [facility] ALT 27 0 - 30 unit/L [facility] Alk Phos 209(H) 35 - 105 unit/L [facility] Total Bilirubin <0.2(L) 0.2 - 1.3 mg/dL [facility] Estimated GFR 150 >=60 mL/min/1. 73 m?? [facility] Comment: This patient's estimated [...] In Lab Wally Rosen MD CHEMISTRY ORDERABLES [facility] [place] [address] * (ABNORMAL) CRP, acute inflammation (11/02/2023 5:26 AM EDT) CRP 62.8(H) <=4.9 mg/L [facility] Blood 11/02/2023 5:26 AM EDT 11/02/2023 5:44 AM EDT Narrative Resulting Agency Comment Spec In Lab Wally Rosen MD CHEMISTRY ORDERABLES [facility] [place] [address] * XR Abdomen 1 view (Generic) (11/01/2023 10:14 PM EDT) WORKSTATION ID [id number] RAD Anatomical Region Laterality Modality Abdomen N/A [...] who have questions please contact the health hospice care transitions coordinator that requested your imaging first. ? Narrative 11/02/2023 8:47 AM EDT EXAMINATION: XR [...] patients who have questions please contactthe health hospice care transitions coordinator that requested your imaging first. Mindy Da Silva [place] IMG DX ORDERABLES * MRSA PCR Screen ([facility]/APD/[facility]) (10/31/2023 6:10 PM EDT) [facility] MRSA Result Negative Negative [facility] MRSA Interp Methicillin-resist ant Staphylococcus aureus (MRSA) is NOT DETECTED The MRSA target DNA sequences (mec and SCC) were not detected within the acceptable ranges using the Xpert MRSA NxG on the GeneXpert Dx System ([employer]). This suggests the absence of MRSA in the patient specimen submitted for testing. This test is cleared by the U.S. Food and Drug Administration for clinical use and its performance characteristics have been verified by the [facility] Genomics [facility] at [facility]. This result does not rule out the presence of any other organisms. Rare false negative results may occur if MRSA is present at low concentrations with much higher concentrations of other organisms including MRSE or S. aureus with an empty SCC cassette. [facility] Comment: [VERIFIED DATE]11.01.23 Verified By:Marisela Jolly (Electronic Signature) Nasopharyngeal Swab 10/31/19 6:10 PM EDT 11/01/2023 8:24 AM EDT Comment:Specimen Type->Nasop haryngeal Swab Narrative Resulting Agency Comment Spec In Lab Wally Rosen MD MICROBIOLOGY - GENER AL ORDERABLES [facility] [place] [address] * Differential, Automated (10/31/2023 4:47 AM EDT) Neutrophils % 56.2 % [facility] Neutr Abs (ANC) 2.93 1.70 - 6.10 x10(3)/[facility] Lymphocytes % 32.1 % [facility] Lymphocytes Abs 1.7 0.9 - 3.2 x10(3)/[facility] Monocytes % 9.0 % [facility] Monocyte Abs 0.5 0.3 - 0.9 x10(3)/[facility] Eosinophils % 1.7 % [facility] Eosinophils Abs 0.1 0.0 - 0.4 x10(3)/[facility] Basophils % 0.8 % [facility] Basophils Abs 0.0 0.0 - 0.1 x10(3)/[facility] Immature Gran % 0.20 % [facility] Comment: Immature granulocytes(IG's)percentage and absolute count will include metamyelocytes, myelocytes, and promyelocytes. Blood smears from CBCs yielding IG's will be scanned manually for concordance. If this scan disagrees with the automated IG or if promyelocytes are noted, a manual differential will be performed. Debora Gran Abs 0.01 0.00 - 0.04 x10(3)/[facility] Blood 10/31/2023 4:47 AM EDT 10/31/2023 4:55 AM EDT Narrative Resulting Agency Comment Spec In Lab Sharron Winters MD HEMATOLOGY ORDERABLE S [facility] [address] [place] [address] * (ABNORMAL) Hemogram (10/31/2023 4:47 AM EDT) WBC 5.2 4.0 - 9.5 x10(3)/[facility] RBC 3.89(L) 4.00 - 5.21 x10(6)/[facility] Hemoglobin 11.1(L) 11.7 - 15.5 g/dL [facility] Hematocrit 33.8(L) 35.7 - 45.8 % [facility] MCV 86.9 82.6 - 94.4 fL [facility] MCH 28.5 27.1 - 32.0 pg [facility] MCHC 32.8 31.7 - 35.0 g/dL [facility] Platelets 488(H) 145 - 357 x10(3)/[facility] RDWSD 45.6 37.0 - 46.0 [facility] RDWCV 14.3(H) 11.5 - 14.1 % [facility] MPV 9.0 7.6 - 12.9 fL [facility] nRBC % Auto 0.0 % [facility] nRBC Abs Auto 0.000 0.000 - 0.000 x10(3)/[facility] Blood 10/31/2023 4:47 AM EDT 10/31/2023 4:55 AM EDT Narrative Resulting Agency Comment Spec In Lab Sharron Winters MD HEMATOLOGY ORDERABLE S [facility] [place] [address] * (ABNORMAL) CRP, acute inflammation (10/31/2023 4:47 AM EDT) CRP 99.2(H) <=4.9 mg/L [facility] Blood 10/31/2023 4:47 AM EDT 10/31/2023 4:55 AM EDT Narrative Resulting Agency Comment Spec In Lab Sharron Winters MD CHEMISTRY ORDERABLES Performing Organization Address [facility] Co de Phone Number [facility] [place] [address] * (ABNORMAL) Basic Metabolic Panel (non-fasting) (10/31/2023 4:47 AM EDT) Pathologist [facility] Glucose Lvl 120 65 - 199 mg/dL [facility] Comment:Diabetes: >=200 mg/d L plus symptoms BUN 8 8 - 18 mg/dL [facility] Creatinine 0.27(L) 0.70 - 1.20 mg/dL [facility] Sodium 140 135 - 145 mmol/L [facility] Potassium 3.8 3.5 - 5.0 mmol/L [facility] Comment: Please note: ??Patients with WBC >100,000 may have falsely elevated Potassium levels. ??For accurate Potassium quantification in these patients send serum separator tube (gold top) for subsequent determinations. ??Contact the Clinical Chemistry Laboratory if there are any questions. Chloride 106 98 - 107 mmol/L [facility] CO2 23 22 - 31 mmol/L [facility] Anion Gap 11 5 - 15 mmol/L [facility] Calcium 9.2 8.5 - 10.5 mg/dL [facility] Estimated GFR 150 >=60 mL/min/1. 73 m?? [facility] Comment: This patient's estimated [...] Winters MD CHEMISTRY ORDERABLES Performing Organization Address [facility] Co de Phone Number [facility] [place] [address] * (ABNORMAL) Sedimentation rate (10/31/2023 4:47 AM EDT) Sed Rate 113(H) 2 - 37 mm/hr [facility] Comment: Effective April 06, 2019 new capillary photometric technology has resulted in a change in reference ranges. It is recommended that each ESR result be reviewed with its own age appropriate reference range. Blood 10/31/2023 4:47 AM EDT 10/31/2023 4:55 AM EDT Narrative Resulting Agency Comment Spec In Lab Sharron Winters MD HEMATOLOGY ORDERABLE S Performing Organization Address City/[facility] Hospital/ZIP Co de Phone Number [facility] [place] [address] * Magnesium (10/31/2023 4:47 AM EDT) Magnesium 0.86 0.69 - 1.07 mmol/L [facility] Blood 10/31/2023 4:47 AM EDT 10/31/2023 4:55 AM EDT Narrative Resulting Agency Comment Spec In Lab Sharron Winters MD CHEMISTRY ORDERABLES [facility] [place] [address] * IR All Drainage Procedures (10/30/2023 3:23 [...] performed this procedure. ? Sharron Winters MD [facility] [place] ORDERABLES * Anaerobic Culture (10/30/2023 3:02 PM EDT) Anaerobic Culture No anaerobic organisms isolated [facility] Fluid 10/30/2023 3:02 PM EDT 10/30/2023 3:47 PM EDT Comment:Infected seroma/absc ess lower mid posterior presacral region. Fluid culture. Narrative Resulting Agency Comment Spec In Lab Andrade Melvin MD MICROBIOLOGY - GENER AL ORDERABLES Performing Organization Address [facility]/ZIP Co de Phone Number [facility] [place] [address] * Body Fluid Culture, Aerobic (10/30/2023 3:02 PM EDT) Body Fluid Culture Rare mixed bacterial morphotypes suggestive of normal cutaneous zenon [facility] Gram Stain Many Neutrophils seen No microorganisms seen. [facility] Fluid 10/30/2023 3:02 PM EDT 10/30/2023 3:47 PM EDT Comment:Infected seroma/absc ess lower mid posterior presacral region. Fluid culture. Narrative Resulting Agency Comment Spec In Lab Andrade Melvin MD MICROBIOLOGY - GENER AL ORDERABLES [facility] [place] [address] * CK (10/30/2023 4:48 AM EDT) Pathologist [facility] CK, Total 29 0 - 160 unit/L [facility] Blood Venous Draw / Unknown 10/30/2023 4:48 AM EDT 10/30/2023 5:06 AM EDT Narrative Resulting Agency Comment Spec In Lab Hollie SIMMS CHEMISTRY ORDERABLES [facility] [place] [address] * Differential, Automated (10/30/2023 4:48 AM EDT) [facility] Neutrophils % 67.0 % [facility] Neutr Abs (ANC) 4.61 1.70 - 6.10 x10(3)/[facility] Lymphocytes % 22.3 % [facility] Lymphocytes Abs 1.5 0.9 - 3.2 x10(3)/[facility] LABOR[facility] Monocytes % 8.2 % [facility] Monocyte Abs 0.6 0.3 - 0.9 x10(3)/[facility] LABOR[facility] Eosinophils % 1.6 % [facility] Eosinophils Abs 0.1 0.0 - 0.4 x10(3)/[facility] LABOR[facility] Basophils % 0.6 % [facility] Basophils Abs 0.0 0.0 - 0.1 x10(3)/[facility] LABOR[facility] Immature Gran % 0.30 % [facility] Comment: Immature granulocytes(IG's)percentage and absolute count will include metamyelocytes, myelocytes, and promyelocytes. Blood smears from CBCs yielding IG's will be scanned manually for concordance. If this scan disagrees with the automated IG or if promyelocytes are noted, a manual differential will be performed. Debora Gran Abs 0.02 0.00 - 0.04 x10(3)/[facility] LAB[facility] Blood 10/30/2023 4:48 AM EDT 10/30/2023 5:01 AM EDT Narrative Resulting Agency Comment Spec In Lab Sharron Winters MD HEMATOLOGY ORDERABLE S [facility] [place] [address] * (ABNORMAL) Hemogram (10/30/2023 4:48 AM EDT) WBC 6.9 4.0 - 9.5 x10(3)/[facility] LABOR[facility] RBC 3.97(L) 4.00 - 5.21 x10(6)/[facility] Hemoglobin 11.3(L) 11.7 - 15.5 g/dL [facility] Hematocrit 34.8(L) 35.7 - 45.8 % [facility] MCV 87.7 82.6 - 94.4 [facility] MCH 28.5 27.1 - 32.0 pg [facility] MCHC 32.5 31.7 - 35.0 g/dL [facility] Platelets 432(H) 145 - 357 x10(3)/[facility] LAB[facility] RDWSD 45.6 37.0 - 46.0 [facility] RDWCV 14.3(H) 11.5 - 14.1 % [facility] MPV 9.3 7.6 - 12.9 [facility] nRBC % Auto 0.0 % [facility] nRBC Abs Auto 0.000 0.000 - 0.000 x10(3)/[facility] Blood 10/30/2023 4:48 AM EDT 10/30/2023 5:01 AM EDT Narrative Resulting Agency Comment Spec In Lab Sharron Winters MD HEMATOLOGY ORDERABLE S [facility] [place] [address] * (ABNORMAL) CRP, acute inflammation (10/30/2023 4:48 AM EDT) CRP 120.3(H) <=4.9 mg/L [facility] Comment:result rechecked-KS Blood 10/30/2023 4:48 AM EDT 10/30/2023 5:01 AM EDT Narrative Resulting Agency Comment Spec In Lab Sharron Winters MD CHEMISTRY ORDERABLES Performing Organization Address [facility] Co de Phone Number [facility] [place] [address] * (ABNORMAL) Basic Metabolic Panel (non-fasting) (10/30/2023 4:48 AM EDT) Pathologist [facility] Glucose Lvl 113 65 - 199 mg/dL [facility] Comment:Diabetes: >=200 mg/d L plus symptoms BUN 7(L) 8 - 18 mg/dL [facility] Creatinine 0.33(L) 0.70 - 1.20 mg/dL [facility] Sodium 136 135 - 145 mmol/L [facility] Potassium 4.1 3.5 - 5.0 mmol/L [facility] Comment: Please note: ??Patients with WBC >100,000 may have falsely elevated Potassium levels. ??For accurate Potassium quantification in these patients send serum separator tube (gold top) for subsequent determinations. ??Contact the Clinical Chemistry Laboratory if there are any questions. Chloride 102 98 - 107 mmol/L [facility] CO2 23 22 - 31 mmol/L [facility] Anion Gap 11 5 - 15 mmol/L [facility] Calcium 9.3 8.5 - 10.5 mg/dL [facility] Estimated GFR 143 >=60 mL/min/1. 73 m?? [facility] Comment: This patient's estimated [...] Winters MD CHEMISTRY ORDERABLES Performing Organization Address [facility] Co de Phone Number [facility] [place] [address] * (ABNORMAL) Sedimentation rate (10/30/2023 4:48 AM EDT) Sed Rate 103(H) 2 - 37 mm/hr [facility] Comment: Effective April 06, 2019 new capillary photometric technology has resulted in a change in reference ranges. It is recommended that each ESR result be reviewed with its own age appropriate reference range. Blood 10/30/2023 4:48 AM EDT 10/30/2023 5:01 AM EDT Narrative Resulting Agency Comment Spec In Lab Sharron Winters MD HEMATOLOGY ORDERABLE S Performing Organization Address City/[facility]/ZIP Co de Phone Number [facility] [place] [address] * Magnesium (10/30/2023 4:48 AM EDT) Magnesium 0.89 0.69 - 1.07 mmol/L [facility] Blood 10/30/2023 4:48 AM EDT 10/30/2023 5:01 AM EDT Narrative Resulting Agency Comment Spec In Lab Sharron Winters MD CHEMISTRY ORDERABLES [facility] [place] [address] * POCT urine (10/29/2023 10:26 AM EDT) Pathologist [facility] POC Urine HCG Negative POC Control Internal Controls Acceptable 10/29/2023 10:2 6 AM EDT Sharron Winters MD POINT OF CARE TEST O RDERABLES * (ABNORMAL) Differential, Automated (10/29/2023 8:37 AM EDT) Pathologist [facility] Neutrophils % 74.9 % [facility] Neutr Abs (ANC) 6.45(H) 1.70 - 6.10 x10(3)/[facility] Lymphocytes % 16.8 % [facility] Lymphocytes Abs 1.4 0.9 - 3.2 x10(3)/[facility] LAB[facility] Monocytes % 6.1 % [facility] Monocyte Abs 0.5 0.3 - 0.9 x10(3)/[facility] LAB[facility] Eosinophils % 1.3 % [facility] Eosinophils Abs 0.1 0.0 - 0.4 x10(3)/[facility] LAB[facility] Basophils % 0.6 % [facility] Basophils Abs 0.0 0.0 - 0.1 x10(3)/[facility] LAB[facility] Immature Gran % 0.30 % [facility] Comment: Immature granulocytes(IG's)percentage and absolute count will include metamyelocytes, myelocytes, and promyelocytes. Blood smears from CBCs yielding IG's will be scanned manually for concordance. If this scan disagrees with the automated IG or if promyelocytes are noted, a manual differential will be performed. Debora Gran Abs 0.03 0.00 - 0.04 x10(3)/[facility] Blood 10/29/2023 8:37 AM EDT 10/29/2023 8:47 AM EDT Narrative Resulting Agency Comment Spec In Lab Brennan Maldonado MD HEMATOLOGY ORDERABL ES Performing Organization Address City/[facility]/ZIP Co de Phone Number [facility] [place] [address] * (ABNORMAL) Hemogram (10/29/2023 8:37 AM EDT) WBC 8.6 4.0 - 9.5 x10(3)/[facility] LABORATORY RBC 3.98(L) 4.00 - 5.21 x10(6)/[facility] LABOR[facility]ORY Hemoglobin 11.2(L) 11.7 - 15.5 g/dL [facility] Hematocrit 33.8(L) 35.7 - 45.8 % [facility] MCV 84.9 82.6 - 94.4 fL [facility] MCH 28.1 27.1 - 32.0 pg [facility] MCHC 33.1 31.7 - 35.0 g/dL [facility] Platelets 477(H) 145 - 357 x10(3)/[facility] LABORATORY RDWSD 44.0 37.0 - 46.0 [facility] LAB[facility]ATORY RDWCV 14.1 11.5 - 14.1 % [facility] MPV 9.3 7.6 - 12.9 [facility] LAB[facility]ATORY nRBC % Auto 0.0 % [facility] nRBC Abs Auto 0.000 0.000 - 0.000 x10(3)/[facility] LABOR[facility] Blood 10/29/2023 8:37 AM EDT 10/29/2023 8:47 AM EDT Narrative Resulting Agency Comment Spec In Lab Brennan Maldonado MD HEMATOLOGY ORDERABL ES [facility] [place] [address] * Lactate, whole blood, [place] lab [place] [place] (10/29/2023 8:37 AM EDT) Lactate WB 1.8 0.5 - 2.2 mmol/L [facility] Blood 10/29/2023 8:37 AM EDT 10/29/2023 8:47 AM EDT Narrative Resulting Agency Comment Spec In Lab Brennan Maldonado MD CHEMISTRY ORDERABLE S [facility] [place] [address] * Phosphorus (10/29/2023 8:37 AM EDT) Phosphorus 3.6 2.5 - 4.5 mg/dL [facility] Blood 10/29/2023 8:37 AM EDT 10/29/2023 8:47 AM EDT Narrative Resulting Agency Comment Spec In Lab Brennan Maldonado MD CHEMISTRY ORDERABLE S [facility] [place] [address] * Magnesium (10/29/2023 8:37 AM EDT) Magnesium 0.94 0.69 - 1.07 mmol/L [facility] Blood 10/29/2023 8:37 AM EDT 10/29/2023 8:47 AM EDT Narrative Resulting Agency Comment Spec In Lab Brennan Maldonado MD CHEMISTRY ORDERABLE S [facility] [place] [address] * (ABNORMAL) Basic Metabolic Panel (non-fasting) (10/29/2023 8:37 AM EDT) Glucose Lvl 96 65 - 199 mg/dL [facility] Comment:Diabetes: >=200 mg/d L plus symptoms BUN 6(L) 8 - 18 mg/dL [facility] Creatinine 0.31(L) 0.70 - 1.20 mg/dL [facility] Sodium 140 135 - 145 mmol/L [facility] Potassium 4.2 3.5 - 5.0 mmol/L [facility] Comment: Please note: ??Patients with WBC >100,000 may have falsely elevated Potassium levels. ??For accurate Potassium quantification in these patients send serum separator tube (gold top) for subsequent determinations. ??Contact the Clinical Chemistry Laboratory if there are any questions. Chloride 103 98 - 107 mmol/L [facility] CO2 26 22 - 31 mmol/L [facility] Anion Gap 11 5 - 15 mmol/L [facility] Calcium 9.4 8.5 - 10.5 mg/dL [facility] Estimated GFR 145 >=60 mL/min/1. 73 m?? [facility] Comment: This patient's estimated [...] Lab Brennan Maldonado MD CHEMISTRY ORDERABLE S [facility] [place] [address] * (ABNORMAL) Urinalysis Microscopic Exam (10/29/2023 2:33 AM EDT) RBC UA >100(H) 0 - 4 /HPF [facility] WBC UA 4 0 - 5 /HPF [facility] Squam Epith UA 4 <=4 /HPF [facility] Hyaline Cast UA <1 0 - 2 /LPF [facility] Comment: Interpret results with caution, microscopic results are from suboptimal specimen volume Straight Catheter Urine 10/29/2023 2:33 AM EDT 10/29/2023 2:43 AM EDT Narrative Resulting Agency Comment Spec In Lab Sharron Winters MD URINE ORDERABLES [facility] [place] [address] * (ABNORMAL) Urinalysis with reflex Culture (10/29/2023 2:33 AM EDT) Glucose UA Negative Negative mg/dL [facility] Protein UA 30(A) Negative mg/dL [facility] Bilirubin UA Negative Negative mg/dL [facility] Comment: Clinical correlation required for positive Urine Bilirubin results as false positive may occur with some drugs and drug related products. If a false positive is suspected a serum total bilirubin should be considered if clinically indicated. Urobilinogen UA Normal Normal mg/dL [facility] pH UA 6.5 5.0 - 8.0 [facility] Blood UA Large(A) Negative mg/dL [facility] Ketones UA Negative Negative mg/dL [facility] Nitrite UA Negative Negative [facility] Leukocytes UA Negative Negative [facility] Appearance UA Clear Clear [facility] Spec [place] UA >=1.030(A) 1.005 - 1.030 [facility] Color UA Yellow Yellow [facility] Culture Reflexed No [facility] Straight Catheter Urine 10/29/2023 2:33 AM EDT 10/29/2023 2:43 AM EDT Narrative Resulting Agency Comment Spec In Lab Sharron Winters MD URINE ORDERABLES Performing Organization Address [facility] Co de Phone Number [facility] [place] [address] * (ABNORMAL) CRP, acute inflammation (10/29/2023 2:08 AM EDT) CRP 133.4(H) <=4.9 mg/L [facility] Blood 10/29/2023 2:08 AM EDT 10/29/2023 2:33 AM EDT Narrative Resulting Agency Comment Spec In Lab Sharron Winters MD CHEMISTRY ORDERABLES Performing Organization Address [facility] Co de Phone Number [facility] [place] [address] * Phosphorus (10/29/2023 2:08 AM EDT) Phosphorus 3.1 2.5 - 4.5 mg/dL [facility] Blood 10/29/2023 2:08 AM EDT 10/29/2023 2:33 AM EDT Narrative Resulting Agency Comment Spec In Lab Sharron Winters MD CHEMISTRY ORDERABLES Performing Organization Address [facility] de Phone Number [facility] [place] [address] * (ABNORMAL) Sedimentation rate (10/29/2023 2:08 AM EDT) Sed Rate >119(H) 2 - 37 mm/hr [facility] Comment: Effective April 06, 2019 new capillary photometric technology has resulted in a change in reference ranges. It is recommended that each ESR result be reviewed with its own age appropriate reference range. Blood 10/29/2023 2:08 AM EDT 10/29/2023 2:33 AM EDT Narrative Resulting Agency Comment Spec In Lab Sharron Winters MD HEMATOLOGY ORDERABLE S Performing Organization Address City/[facility]/ZIP Co de Phone Number [facility] [place] [address] * Magnesium (10/29/2023 2:08 AM EDT) Magnesium 0.85 0.69 - 1.07 mmol/L [facility] Blood 10/29/2023 2:08 AM EDT 10/29/2023 2:33 AM EDT Narrative Resulting Agency Comment Spec In Lab Sharron Winters MD CHEMISTRY ORDERABLES Performing Organization Address [facility] Co de Phone Number [facility] [place] [address] * CT Lumbar Spine w Contrast (10/28/2023 9:50 PM EDT) WORKSTATION ID [id number] RAD Anatomical Region Laterality Modality L-spine Computed [...] who have questions please contact the health hospice care transitions coordinator that requested your imaging first. ? Narrative [...] patients who have questions please contactthe health hospice care transitions coordinator that requested your imaging first. Siomara Hernandez MD IMG CT ORDERABLES * Differential, Automated (10/28/2023 9:00 PM EDT) Neutrophils % 66.3 % [facility] Neutr Abs (ANC) 5.75 1.70 - 6.10 x10(3)/[facility] Lymphocytes % 24.1 % [facility] Lymphocytes Abs 2.1 0.9 - 3.2 x10(3)/[facility] LAB[facility] Monocytes % 7.2 % [facility] Monocyte Abs 0.6 0.3 - 0.9 x10(3)/[facility] LAB[facility] Eosinophils % 1.4 % [facility] Eosinophils Abs 0.1 0.0 - 0.4 x10(3)/[facility] LAB[facility] Basophils % 0.5 % [facility] Basophils Abs 0.0 0.0 - 0.1 x10(3)/[facility] LAB[facility] Immature Gran % 0.50 % [facility] Comment: Immature granulocytes(IG's)percentage and absolute count will include metamyelocytes, myelocytes, and promyelocytes. Blood smears from CBCs yielding IG's will be scanned manually for concordance. If this scan disagrees with the automated IG or if promyelocytes are noted, a manual differential will be performed. Debora Gran Abs 0.04 0.00 - 0.04 x10(3)/[facility] LAB[facility] Blood 10/28/2023 9:00 PM EDT 10/28/2023 9:17 PM EDT Narrative Resulting Agency Comment Spec In Lab Esteban King APRN HEMATOLOGY ORDERABLE S [facility] [place] [address] * (ABNORMAL) Hemogram (10/28/2023 9:00 PM EDT) WBC 8.7 4.0 - 9.5 x10(3)/[facility] LABOR[facility] RBC 4.28 4.00 - 5.21 x10(6)/[facility] Hemoglobin 11.9 11.7 - 15.5 g/dL [facility] Hematocrit 36.5 35.7 - 45.8 % [facility] MCV 85.3 82.6 - 94.4 fL [facility] MCH 27.8 27.1 - 32.0 pg [facility] MCHC 32.6 31.7 - 35.0 g/dL [facility] Platelets 525(H) 145 - 357 x10(3)/[facility] LABORATORY RDWSD 43.8 37.0 - 46.0 fL [facility] RDWCV 14.2(H) 11.5 - 14.1 % [facility] MPV 9.2 7.6 - 12.9 fL [facility] nRBC % Auto 0.0 % [facility] nRBC Abs Auto 0.000 0.000 - 0.000 x10(3)/mcL [facility] Blood 10/28/2023 9:00 PM EDT 10/28/2023 9:17 PM EDT Narrative Resulting Agency Comment Spec In Lab Esteban Bacaicoa MEDICAL PHYSICS RESEARCHER HEMATOLOGY ORDERABLE S [facility] [place] [address] * (ABNORMAL) CRP, acute inflammation (10/28/2023 9:00 PM EDT) CRP 148.3(H) <=4.9 mg/L [facility] Blood 10/28/2023 9:00 PM EDT 10/28/2023 9:17 PM EDT Narrative Resulting Agency Comment Spec In Lab Esteban Bacaicoa MEDICAL PHYSICS RESEARCHER CHEMISTRY ORDERABLES Performing Organization Address [facility]/ZIP Co de Phone Number [facility] [place] [address] * (ABNORMAL) Sedimentation rate (10/28/2023 9:00 PM EDT) Sed Rate >119(H) 2 - 37 mm/hr [facility] Comment: Effective April 06, 2019 new capillary photometric technology has resulted in a change in reference ranges. It is recommended that each ESR result be reviewed with its own age appropriate reference range. Blood 10/28/2023 9:00 PM EDT 10/28/2023 9:17 PM EDT Narrative Resulting Agency Comment Spec In Lab Esteban Bacaicoa MEDICAL PHYSICS RESEARCHER HEMATOLOGY ORDERABLE S Performing Organization Address City/[facility]/ZIP Co de Phone Number [facility] [place] [address] * (ABNORMAL) Basic Metabolic Panel (non-fasting) (10/28/2023 9:00 PM EDT) Glucose Lvl 88 65 - 199 mg/dL [facility] Comment:Diabetes: >=200 mg/d L plus symptoms BUN 7(L) 8 - 18 mg/dL [facility] Creatinine 0.25(L) 0.70 - 1.20 mg/dL [facility] Sodium 137 135 - 145 mmol/L [facility] Potassium Not Perf 3.5 - 5.0 [facility] Comment: Unable to quantitate [...] questions. Chloride 102 98 - 107 mmol/L [facility] CO2 25 22 - 31 mmol/L [facility] Anion Gap 10 5 - 15 mmol/L [facility] Calcium 9.4 8.5 - 10.5 mg/dL [facility] Estimated GFR 153 >=60 mL/min/1. 73 m?? [facility] Comment: This patient's estimated [...] In Lab Esteban King APRN CHEMISTRY ORDERABLES [facility] [address] [place] [address] documented in this encounter Visit Diagnoses Diagnosis [...] 17 g, Oral, DAILY, First dose on Dianne 10/29/23 at 0900, Until Discontinued, Routine Given 11/03/2023 [...] on Thu10/28/23 at 2155, Until Discontinued, Routine 09 (Given - Provider: Maryana Cottrell RN)133 (Given - Provider: Muriel Sanchez RN)210 (Given - Provider: Arielle Contreras RN) 0833 (Given - Provider: Maryana Cottrell RN)1315 (Given - Provider: Maryana Cottrell RN)2122 (Given - Provider: Arielle Contreras RN) 09 (Given - Provider: Diandra Luo RN)1404 (Given [...] 1713 (New Bag - Provider: Maryana Cottrell RN)174 (Stopped - Provider: Arielle Contreras RN) [id number] [...] on Thu10/29/23 at 0900, Until Discontinued, Routine 09 (Given - Provider: Maryana Cottrell RN) 0833 (Given - Provider: Maryana Cottrell RN) 09 (Given - Provider: Diandra Luo RN) polyethylene glycoL (Miralax) packet 17 g 17 g, Oral, DAILY, First dose on Dianne 10/29/23 at 0900, Until Discontinued, Routine 0952 (Given - Provider: Maryana Cottrell RN) 08 [...] Dianne 10/29/23 at 0102, Until Discontinued, Routine 09 (Given - Provider: Maryana Cottrell RN)2130 (Given - Provider: Arielle Contreras RN) 08 (Given - Provider: Maryana Cottrell RN)2100 (Not Given - Provider: Arilele Contreras RN - Reason: See comment - Comment: no access) 905 (Not Given - Provider: Diandra Luo RN - Reason: Loss of access) PRN Medication Order 11/01/2023 11/02/2023 11/03/2023 acetaminophen (Tylenol) tablet 650 mg 650 mg, Oral, EVERY 4 HOURS PRN, Starting on 10/31/23 at 1831, Until 11/03/23 at 1925, Pain, Maximum dose of acetaminophen is 4,000 mg from all sources in 24 hours. When ordered for pain, acetaminophen should be given even when other ordered pain medications are indicated., Routine 09 (Given - Provider: Maryana Cottrell RN)144 (Given - Provider: Muriel Sanchez RN)2130 (Given - Provider: Arielle Contreras RN) 043 (Given - Provider: Arielle Contreras RN)08 (Given - Provider: Maryana Cottrell RN) bisacodyL [...] ordered. documented in this encounter Care Teams Professor Of Law Relationship Specialty Start Date End Date Lorna Bal APRN [address] [place] [address] PCP - General Family Medicine 05/27/18 documented as of this encounter
--- OUTSIDE RECORDS SUMMARY | 2023-11-16 16:55 | XMS_ITS | Encounter Summary ---
Author Organization [place] [address] Care Team Providers Care Manager Of Business Operations Name Role Phone Lorna Bal APRN Primary Care Provider [phone] Reason for Referral * Diagnostic Test (Routine) - Closed Specialty Diagnoses / Procedures Referred By Contac t Referred To Contact Radiology Diagnoses Spinal abscess Procedures CT Lumbar Spine w Contrast George Tipton MD [facility] DR [place] [address] [facility] [place] [address] Referral ID Status Reason Start Date Expiration Date V isits Requested Visits Authorized [id number] Closed Specialty Service Requested 04/15/2023 10/14/2024 1 1 Reason for Visit * Diagnostic Test (Routine) - Closed Specialty Diagnoses / Procedures Referred By Contac t Referred To Contact Radiology Diagnoses Spinal abscess Procedures CT Lumbar Spine w Contrast George Tipton MD [facility] [place] [address] [facility] [place] [address] Referral ID Status Reason Start Date Expiration Date V isits Requested Visits Authorized [id number] Closed Specialty Service Requested 04/15/2023 10/14/2024 1 1 Encounter Details Date Type Department Care Team (Latest Contact Info) Description 04/16/2023 3:10 PM EST - 04/16/2023 11:59 PM EST Hospital [place] [address] Keri [place] [address] Spinal abscess Discharge Disposition: Home [...] EDT TH Visit (TeleHealth) Infectious Disease at [place] [phone] Lilli Joy [place] [facility] [place] [address] 12/03/2023 12:30 PM EDT Office Visit Infectious Disease at [place] [phone] Hollie Ambriz MD [facility] [place] [address] 12/03/2023 2:30 PM EDT Appointment Radiology at [place] [phone] Andrade Melvin MD [facility] [place] [address] documented as of this encounter Procedures Procedure [...] have questions please contact the health care center manager that requested your imaging first. ? Narrative [...] who have questions please contactthe health care center manager that requested your imaging first. Keri Trevino [...] mLs documented in this encounter Care Teams Manager Of Business Operations Relationship Specialty Start Date End Date Lorna Bal APRN [address] [place] [address] PCP - General Family Medicine 05/27/18 documented as of this encounter
--- OUTSIDE RECORDS SUMMARY | 2023-11-16 16:55 | XMS_ITS | Encounter Summary ---
Author Organization [facility] Address [facility] [place] [address] Care Team Providers Care Shine Worker Name Role Phone Lorna Bal APRN Primary Care Provider [phone] Encounter Details Date Type Department Care Team (Late st Contact Info) Description 09/24/2023 10:00 AM EDT Office [place] [phone] Ronn Tipton MD [facility] [place] [address] Spinal abscess; penitentiary 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 Social History Tobacco Use Types Packs/Day Years Used Date Smoking Tobacco: Never Smokeless Tobacco: Never Comments:NO SMOKERS IN THE H OME Alcohol Use Standard Drinks/Week Comments No 0 (1 standard drink = 0.6 oz pur e alcohol) [facility] Inpatient Questions Answer Date Recorded Does [...] remained on bactrim. Followed up with in [place]. MRI was not possible sec. To hardware. CRP/ESR was trending upwards. NSG referred her to [facility] for surgery. The patient went to [...] liquefied hematoma or abscess. Neurosurgeon recommended continuing fci suppressive antibiotics Subjective: Tana is in pleasant [...] Tipton MD Infectious Diseases Fellow- PGY5 Pager: [phone] 09/23/2023 11:03 AM Plan discussed with Dr. Hollie Ambriz This note was created using [employer] voice recognition software. * Hollie Ambriz MD [...] Addendum Note - Ronn Tipton MD - 09/24/2023 10:00 AM EDTAddended by: RONN TIPTON on: 09/28/2023 09:51 AM Modules accepted: Orders documented in this encounter Plan of Treatment Upcoming Encounters Date Type Department Care Team (Late st Contact Info) Description 11/19/2023 2:30 PM EDT TH Visit (TeleHealth) Infectious Disease at [facility] [place] [address] Lilli Joy APRN [facility] [place] [address] 12/03/2023 12:30 PM EDT Office [place] [address] Hollie Ambriz MD [facility] DR INFECTIOUS DISEASE [place], [place] [id number] 12/03/2023 2:30 PM EDT [place] [address] Andrade Melvin MD [facility] DR [place] [address] documented as of this encounter Procedures Procedure Name Priority Date/Time Associated Diagnosis Comments HC VENIPUNCTURE Routine 09/24/2023 11:03 AM EDT Spinal abscess COMPREHENSIVE METABOLIC PANEL (NON-FASTING) Routine 09/24/2023 11:03 AM EDT Spinal abscess documented in this encounter Results * (ABNORMAL) Comprehensive metabolic panel (non-fasting) (09/24/2023 11:03 AM EDT) Glucose Lvl 98 65 - 199 mg/dL [facility] Comment:Diabetes: >=200 mg/d L plus symptoms BUN 16 8 - 18 mg/dL [facility] Creatinine 0.27(L) 0.70 - 1.20 mg/dL [facility] Sodium 138 135 - 145 mmol/L [facility] Potassium 3.7 3.5 - 5.0 mmol/L [facility] Comment: Please note: ??Patients with WBC >100,000 may have falsely elevated Potassium levels. ??For accurate Potassium quantification in these patients send serum separator tube (gold top) for subsequent determinations. ??Contact the Clinical Chemistry Laboratory if there are any questions. Chloride 100 98 - 107 mmol/L [facility] CO2 23 22 - 31 mmol/L [facility] Anion Gap 15 5 - 15 mmol/L [facility] Calcium 10.3 8.5 - 10.5 mg/dL [facility] Total Protein 8.4(H) 6.1 - 8.0 g/dL [facility] Albumin 4.6 3.2 - 5.2 g/dL [facility] AST 23 0 - 30 unit/L [facility] ALT 49(H) 0 - 30 unit/L [facility] Alk Phos 302(H) 35 - 105 unit/L [facility] Total Bilirubin 0.3 0.2 - 1.3 mg/dL [facility] Estimated GFR 150 >=60 mL/min/1. 73 m?? [facility] Comment: This patient's [...] In Lab Ronn Tipton MD CHEMISTRY ORDERABLES [facility] [place] [address] * (ABNORMAL) CRP, acute inflammation (09/24/2023 11:03 AM EDT) CRP 42.3(H) <=4.9 mg/L [facility] Blood 09/24/2023 11:0 3 AM EDT 09/24/2023 11:10 AM EDT Narrative Resulting Agency Comment Spec In Lab Ronn Tipton MD CHEMISTRY ORDERABLES [facility] [place] [address] documented in this encounter Visit Diagnoses Diagnosis Spinal abscess Acute osteomyelitis, other specified site penitentiary 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 Encounter for long-term (current) use of antibiotics documented in this encounter Care Teams Shine Worker Relationship Specialty Start Date End Date Lorna Bal, INGOT CAR OPERATOR [address] [place] [address] PCP - General Family Medicine 05/27/18 documented as of this encounter
--- OUTSIDE RECORDS SUMMARY | 2023-11-16 16:55 | XMS_ITS | Encounter Summary ---
Author Organization [facility] Address [facility] [place] [address] Care Team Providers Care Manager Web Name Role Phone Lorna Bal APRN Primary Care Provider [phone] Encounter Details Date Type Department Care Team (Late st Contact Info) Description 08/05/2023 10:15 AM EDT - 08/05/2023 11:00 AM EDT Surgery [place] [address] Jamar Gastelum MD [facility] [place] [address] COLONOSCOPY FLEXIBLE, WITH BX (WRVU 3.56) Social [...] occurs, please contact your Doctor. Please call [phone] before 8pm Mon-Fri with problems, questions or concerns. If you call after 8pm or on weekends, call the Hospital at [phone] and ask to speak to the Retail Field Representative production designer and the reverberatory furnace operator will contact that person for you. When should you call for help? Call [phone] anytime you think you may need emergency [...] any problems. Where can you learn more? [facility] View your After Visit Summary and more online at [email or web address] If you would like to provide feedback about your hospital experience, please call the Office of Patient and Family Relations at . If you have received this After Visit Summary in error, please immediately return it in person to the department, or notify the [facility] Privacy Office by calling toll free at between the hours of 8AM and 5PM to arrange for our retrieval of the documents at no cost to you. Content Version: 12.2 ?? [id number] [employer] Care instructions adapted under license by [facility]. If you have questions about a medical condition or this instruction, always ask your healthcare professional. [employer] disclaims any warranty or liability for your [...] Gastelum MD - 08/05/2023 10:35 AM EDT [facility] Operative Note Patient Name: Tana Cavazos : [id number] MR#: [id number] Case Date: 08/05/2023 Surgeon: Surgeon(s) and Role: [...] EDT TH Visit (TeleHealth) Infectious Disease at [place] [phone] Lilli Joy APRN [facility] [place] [address] 12/03/2023 12:30 PM EDT Office Visit [place] [address] Hollie Ambriz MD [facility] [place] [address] 12/03/2023 2:30 PM EDT Appointment Radiology at [place] [phone] Andrade Melvin MD [facility] [place] [address] documented as of this encounter Procedures Procedure Name Priority Date/Time Associated Diagnosis Comments SPECIMEN TO PATHOLOGY Routine 08/05/2023 11:01 AM EDT SURGICAL PATHOLOGY REPORT Routine 08/05/2023 11:00 AM EDT Colonoscopy, Biopsy ([id number]) 08/05/2023 10:27 AM EDT Constipation, unspecified constipation type COLONOSCOPY Routine 08/05/2023 9:59 AM EDT documented in this encounter Results * Specimen to Pathology (08/05/2023 11:01 AM EDT) AP Specimen 08/05/2023 11:0 1 AM EDT 08/05/2023 11:01 AM EDT Narrative [facility] - 08/05/2023 11:01 AM EDT Specimen requisition ordered. ??Separate Pathology report to follow Jamar Hair MD PATHOLOGY/CYTOLO GY ORDERABLES [facility] [place] [id number] * Surgical Pathology Report (08/05/2023 11:00 AM EDT) Surgical Pathology Report [id number] ? Location: 4T; EA11; A The signing pathologist has (i) examined the relevant preparation(s) for the specimen(s) and (ii) rendered or confirmed the diagnosis(es). . ?Surgical Pathology DIAGNOSIS A - Rectum r/o microscopic colitis, biopsy (Multiple): - ??Colonic mucosa within normal limits. CR-PX Electronically signed by: ?Jazmyne GIRALDO PhD, Courtney Verified: ??08/17/2023 16:08 ??Pathologist Performed at: ??-[facility] Dept. of Pathology, [place] [address] Model And Pattern Supervisor: Frank Turpin MD, AP, ??CLIA Certificate: [id number] SPECIMEN(S) SUBMITTED A - rectum r/o microscopic colitis, biopsy (Multiple) CLINICAL INFORMATION 28-year-old female with chronic constipation SPECIMEN PROCESSING A - Labeled/Fixative : Rectum rule out microscopic colitis, formalin. Quantity/Size: Multiple, averaging 0.3 cm. Tissue Description: Soft, red tissues. Sections/Process ing: Submitted in toto ??in 2 cassettes labeled A1-A2. ??sns [facility] 08/05/2023 11:0 0 AM EDT Jamar Hair MD PATHOLOGY/CYTOLO GY ORDERABLES Performing Organization Address [facility]/State/ZIP Co de Phone Number [facility] [place] [address] * COLONOSCOPY (08/05/2023 9:59 AM EDT) COLONOSCOPY [facility] Endoscopy ___ Procedure Date: 08/05/2023 9:59 AM ? Patient Name: Tana Cavazos ? N: [id number] ? Date of : 1995 ? Age: 28 ? Order #: [id number] ? Instrument Name: [id number] ? ___ Procedure: ? Colonoscopy Indications: ? [...] Active and Recently Administered Medications Care Teams Manager Web Relationship Specialty Start Date End Date Lorna Bal APRN [address] [place] [address] PCP - General Family Medicine 05/27/18 documented as of this encounter
--- OUTSIDE RECORDS SUMMARY | 2023-11-16 16:55 | XMS_ITS | Encounter Summary ---
[place] [address] Care Team Providers Care Dredge Master Name Role Phone Lorna Bal APRN Primary Care Provider [phone] Reason for Referral * Occupational Therapy (Routine) - Closed Specialty Diagnoses / Procedures Referred By Contmonica t Referred To Contact Occupational Therapy Diagnoses Chronic pain of right thumb Lucho Foster MD [facility] [place] [address] [facility] [address] Referral ID Status Reason Start Date Expiration Date V isits Requested Visits Authorized [id number] Closed Consult Only 09/29/2023 09/28/2024 30 30 * Physical Therapy (Routine) - Authorized Specialty Diagnoses / Procedures Referred By Contac t Referred To Contact Physical Therapy Diagnoses Chronic pain of right thumb Lucho Foster MD [facility] [place] [address] Referral ID Status Reason Start Date Expiration Date Visits Requested Visits Authorized [id number] Authorized Evaluate and Treat 09/29/2023 03/27/2024 12 12 Reason for Visit * Reason Comments Establish Care CONTRACTURE OF R VIKAS MB NO KNOWN INJURY Hx OF RELEASE DOS: ([facility]) CRISTELA * Consultation (Routine) - Authorized Specialty Diagnoses / Procedures Referred By Contac t Referred To Contact Orthopaedics Diagnoses Contracture of joint of hand, 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 Lorna Bal APRN [address] [place] [address] [facility] [address] [place] [address] Referral ID Status Reason Start Date Expiration Date Visits Requested Visits Authorized [id number] Authorized Consult, Test & Treat PCP Updated and/or Approved 08/03/2023 08/02/2024 6 6 Encounter Details Date Type Department Care Team (Latest Contact Info) Description 09/29/2023 10:30 AM EDT [place] [address] Chuckie Mayfield MD [facility] [place] [address] Chronic pain of right thumb; 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 Living situation: dual housing with two registered phlebotomist part time caregivers. Fannie is Guardian. Thumb in palm [...] [Transparent Dressings] Itching and Dermatitis Please use [id number] Cyclobenzaprine Other Reaction(s): Not available Doxycycline Other (See Comments) Cough, rash Penicillins Social history: Social History Tobacco Use Smoking status: Never Passive exposure: Never Smokeless tobacco: Never Tobacco comments: NO SMOKERS IN THE HOME Substance Use Topics Alcohol use: No Occupation: disabled Questionnaire Responses: 03/18/2019 [facility] Surgical Postop Visit PROMIS-10 General Health Very [...] EDT TH Visit (TeleHealth) Infectious Disease at [place] [phone] Lilli Joy [place] [facility] [place] [address] 12/03/2023 12:30 PM EDT Office Visit Infectious Disease at [place] [phone] Hollie Ambriz MD [facility] [place] [address] 12/03/2023 2:30 PM EDT Appointment Radiology at [place] [phone] Andrade Melvin MD [facility] [place] [address] Scheduled Referrals Name Type Priority Associated Diagnoses [...] unspecified documented in this encounter Care Teams Dredge Master Relationship Specialty Start Date End Date Lorna Bal APRN [address] [place] [address] PCP - General Family Medicine 05/27/18 documented as of this encounter
--- OUTSIDE RECORDS SUMMARY | 2023-11-16 16:55 | XMS_ITS | Encounter Summary ---
Author Organization [facility] [place] [address] Care Team Providers Care Pediatric Cardiologist Name Role Phone Lorna Bal APRN Primary Care Provider +1 [phone] Reason for Visit * Consultation (Routine) - Authorized Specialty Diagnoses / Procedures Referred By Karlo duarte Referred To Contact Gastroenterology Diagnoses Constipation, unspecified constipation type constipation Lorna Bal APRN [address] [place] [address] [facility] [place] [address] [address] Referral ID Status Reason Start Date Expiration Date Visits Requested Visits Authorized [id number] Authorized Consult, Test & Treat PCP Updated and/or Approved 01/30/2023 01/30/2024 12 12 Encounter Details Date Type Department Care Team (Latest Contact Info) Description 06/08/2023 9:00 AM EST TH Visit (TeleHealth) [place] [address] Samantha Crystal APRN [facility] [place] [address] Constipation, unspecified constipation type Social [...] stomach discomfort. She is being followed in [place] after hospital stay for a spinal infection. [...] All Drainage Procedures 06/25/2022 Mich Martino MD [facility] INTERVENTIONL RAD IR ALL DRAINAGE PROCEDURES 07/04/2022 IR All Drainage Procedures 07/04/2022 Mich Martino MD [facility] INTERVENTIONL RAD IR ALL DRAINAGE PROCEDURES 07/24/2022 IR All Drainage Procedures 07/24/2022 Anurag Kumar MD [facility] INTERVENTIONL RAD IR ALL DRAINAGE PROCEDURES 09/26/2022 IR All Drainage Procedures 09/26/2022 Jamaal Jenkins, DO [facility] INTERVENTIONL RAD IR DRAIN CHECK/CHANGE/REMOVE 07/01/2022 IR Drain Check/Change/Remove 07/01/2022 Jamaal Jenkins, DO [facility] INTERVENTIONL RAD IR DRAIN CHECK/CHANGE/REMOVE 08/11/2022 IR Drain Check/Change/Remove 08/11/2022 Piter Self MD [facility] INTERVENTIONL RAD IR DRAIN CHECK/CHANGE/REMOVE 08/25/2022 IR Drain Check/Change/Remove 08/25/2022 Jamaal Jenkins, DO [facility] INTERVENTIONL RAD IR DRAIN CHECK/CHANGE/REMOVE 09/10/2022 IR Drain Check/Change/Remove 09/10/2022 Mich Martino MD [facility] INTERVENTIONL RAD PRO APPLY OF HIP CASTS, TWO LEGS 08/15/2010 CAST APPLICATION, HIP SPICA, BOTH LEGS performed by BARRERA OLIVER at [facility] MAIN OR PRO I&D, POST SPINE, LUMB/SACR/LUMBOSAC N/A 05/20/2014 @I & D, OPEN, DEEP ABSCESS, LUMBAR, SACRAL, LUMBOSACRAL performed by Freddy Isbell MD at [facility] MAIN OR PRO I&D, POST SPINE, LUMB/SACR/LUMBOSAC N/A 05/26/2014 @I & D, OPEN, DEEP ABSCESS, LUMBAR, SACRAL, LUMBOSACRAL performed by Freddy Isbell MD at [facility] MAIN OR PRO IMPACT TOOTH REMOV COMP BONY N/A 06/14/2018 SURGICAL EXTRACTIONS, REMOVAL OF IMPACTED TOOTH, COMPLETELY BONY (WRVU 1.93) performed by Keith Cotton MD at [facility] OSC PRO OSTEOTOMY FEMUR SHAFT/SUPRACONDY 08/15/2010 ??OSTEOTOMY, FEMUR SHAFT OR SUPRACONDYLAR W/O FIXATION performed by BARRERA OLIVER at [facility] MAIN OR PRO RECONSTRUC HIP SOCKET, RESEC FEM HEAD 08/15/2010 ??ACETABULOPLASTY (GIRDLESTONE), RESECTION FEMORAL HEAD, BILATERAL performed by BARRERA OLIVER [facility] MAIN OR PRO REMOVAL DEEP IMPLANT 08/15/2010 REMOVAL IMPLANT, DEEP, BRUNO performed by BARRERA OLIVER at [facility] MAIN OR PRO REMOVAL ERUPTED TOOTH WITH ELEVATION OF MUCOPERIOSTEAL FLAP N/A 06/14/2018 SURGICAL EXTRACTIONS REQUIRING ELEVATION OF MUCOPERIOSTEAL FLAP AND REMOVAL OF BONE OR SECTION OF TOOTH (WRVU 1.09) performed by Keith Cotton MD at [facility] OSC PRO REMOVE INFUSN DEVICE/PUMP N/A 05/11/2014 REMOVAL OF SPINE INFUSION PUMP performed by Jamaal Samuel MD at [facility] MAIN OR PRO REMOVE SPINAL CANAL CATHETER N/A 05/11/2014 REMOVAL OF INTRATHECAL OR EPIDURAL CATHETER performed by Jamaal Samuel MD at [facility] MAIN OR PRO REPR, DURAL/CSF LEAK, NOT REQ LAMINECTOMY N/A 05/20/2014 @REPAIR DURAL\CSF LEAK,NOT REQUIRING LAMINECTOMY performed by Freddy Isbell MD at [facility] MAIN OR MEDICATIONS: Current Outpatient Medications Medication [...] [Transparent Dressings] Itching and Dermatitis Please use [id number] Cyclobenzaprine Other Reaction(s): Not available Penicillins SOCIAL [...] labs. Theyare requesting [facility] ([facility]). They are aware that [...] Mom requesting consent to order colonoscopy. Called [phone]. Awaiting call back for consent for colonoscopy. Ordered colonoscopy at this time and will await consent confirmation with mom prior to procedure. Total time spent on encounter today: Time spent reviewing records prior to this encounter: 10 minutes Time spent during encounter with patient including counselin minutes Time spent documenting encounter after office visit: 5 minutes Samantha Crystal, MSN, RECONNAISSANCE CREWMEMBER, STOVE BOTTOM WORKER-C Section of Gastroenterology [place] [address] documented in this encounter Plan of Treatment Upcoming Encounters Date Type Department Care Team (Late st Contact Info) Description 11/19/2023 2:30 PM EDT TH Visit (TeleHealth) Infectious Disease at [place] [phone] Lilli Joy [facility]N [facility] [place] [address] 12/03/2023 12:30 PM EDT Office Visit Infectious Disease at [place] [address] Hollie Ambriz MD [facility] [place] [address] 12/03/2023 2:30 PM EDT Appointment Radiology at [place] [address] Andrade Melvin MD [facility] [place] [address] Scheduled Orders Name Type Priority Associated Diagnoses Orde r Schedule Iron and TIBC Lab Routine Constipation, unspecified constipation type Expected: 06/29/2023 (Approximate), Expires: 12/29/2023 TSH Lab Routine Constipation, unspecified constipation type Expected: 06/15/2023 (Approximate), Expires: 12/15/2023 ENDOSCOPY CASE REQUEST: COLONOSCOPY, DIAGNOSTIC (WRVU 3.26) Procedures Routine Constipation, unspecified constipation type Ordered: 06/15/2023 documented as of this encounter Visit Diagnoses Diagnosis Constipation, unspecified constipation type documented in this encounter Care Teams Pediatric Cardiologist Relationship Specialty Start Date End Date Lorna Bal APRN [address] [place] [address] PCP - General Family Medicine 05/27/18 documented as of this encounter
--- OUTSIDE RECORDS SUMMARY | 2023-11-16 16:55 | XMS_ITS | Encounter Summary ---
Author Organization [facility] [place] [address] Care Team Providers Care Technology Analyst Name Role Phone Lorna Bal APRN Primary Care Provider +1 -[phone] Encounter Details Date Type Department Care Team (Late st Contact Info) Description 04/24/2023 Telephone Infectious Disease at [facility] [place] [phone] Meme Morataya Social History Tobacco Use Types [...] EDT TH Visit (TeleHealth) Infectious Disease at [place] [phone] Lilli Joy [place] [address] 12/03/2023 12:30 PM EDT Office Visit Infectious Disease at [address] Hollie Ambriz MD [facility] [place] [address] 12/03/2023 2:30 PM EDT Appointment Radiology at [place] [phone] Andrade Melvin MD [facility] DIAGNOSTIC [place] [address] documented as of this encounter Visit Diagnoses Not on filedocumented in this encounter Care Teams Technology Analyst Relationship Specialty Start Date End Date Lorna Bal APRN [address] [place] [address] PCP - General Family Medicine 05/27/18 documented as of this encounter
--- OUTSIDE RECORDS SUMMARY | 2023-11-16 16:55 | XMS_ITS | Encounter Summary ---
Author Organization [facility] [place] [address] Care Team Providers Care Bandage Wrapping Machine Operator Name Role Phone Lorna Bal APRN Primary Care Provider +1 -[phone] Encounter Details Date Type Department Care Team (Late st Contact Info) Description 06/12/2023 Telephone [place] [phone] Tobi Luna Social History Tobacco Use Types Packs/Day Years Used Date Smoking Tobacco: Never Smokeless Tobacco: Never Comments:NO SMOKERS IN THE H OME Alcohol Use Standard Drinks/Week Comments No 0 (1 standard drink = 0.6 oz pur e alcohol) [facility] Inpatient Questions Answer Date Recorded Does Anyone [...] EDT TH Visit (TeleHealth) Infectious Disease at [place] [phone] Lilli Joy APRN [facility] [place] [address] 12/03/2023 12:30 PM EDT Office [place] [address] Hollie Ambriz MD [facility] [place] [address] 12/03/2023 2:30 PM EDT [place] [address] Andrade Melvin MD [facility] [place] [address] documented as of this encounter Visit Diagnoses Not on filedocumented in this encounter Care Teams Bandage Wrapping Machine Operator Relationship Specialty Start Date End Date Lorna Bal APRN [address] [place] [address] PCP - General Family Medicine 05/27/18 documented as of this encounter
--- OUTSIDE RECORDS SUMMARY | 2023-11-16 16:56 | XMS_ITS | Encounter Summary ---
[place] [address] Care Team Providers Care Drilling Field Specialist Name Role Phone Lorna Bal APRN Primary Care Provider +1 -[phone] Encounter Details Date Type Department Care Team (Latest Contact Info) Description 08/25/2022 4:30 PM EDT Laboratory Appointment Lab [address], [place] [phone] Spinal abscess; Bacteremia; E coli infection; Soft [...] EDT TH Visit (TeleHealth) Infectious Disease at [place] [phone] Lilli Joy APRN [facility] [place] [address] 12/03/2023 12:30 PM EDT Office Visit Infectious Disease at [place] [phone] Hollie Ambriz MD [facility] [place] [address] 12/03/2023 2:30 PM EDT Appointment Radiology at [place] [phone] Andrade Melvin MD [facility] [place] [address] documented as of this encounter Visit Diagnoses Diagnosis Spinal abscess Acute osteomyelitis, other specified site Bacteremia E coli infection Other and unspecified Escherichia coli (E. coli) Soft tissue abscess Cellulitis and abscess of other specified site Muscle abscess Other disorder of muscle, ligament, and fascia documented in this encounter Care Teams Drilling Field Specialist Relationship Specialty Start Date End Date Lorna Bal APRN [address] [place] [address] PCP - General Family Medicine 05/27/18 documented as of this encounter
--- OUTSIDE RECORDS SUMMARY | 2023-11-16 16:56 | XMS_ITS | Encounter Summary ---
[place] [address] Care Team Providers Care Internal Control Analyst Name Role Phone Lorna Bal APRN Primary Care Provider +1 -[phone] Encounter Details Date Type Department Care Team [...] EDT TH Visit (TeleHealth) Infectious Disease at [facility] [place] [phone] Lilli Joy APRN [facility] [place] [address] 12/03/2023 12:30 PM EDT Office Visit Infectious Disease at [place] [phone] Hollie Ambriz MD [facility] [place] [address] 12/03/2023 2:30 PM EDT [place] [address] Andrade Melvin MD [facility] [place] [address] documented as of this encounter Visit Diagnoses Not on filedocumented in this encounter Care Teams Internal Control Analyst Relationship Specialty Start Date End Date Lorna Bal APRN [address] [place] [address] PCP - General Family Medicine 05/27/18 documented as of this encounter
--- OUTSIDE RECORDS SUMMARY | 2023-11-16 16:56 | XMS_ITS | Encounter Summary ---
[place] [address] Care Team Providers Care Compositor Apprentice Name Role Phone Lorna Bal APRN Primary Care Provider +1 -[phone] Reason for Referral * Consultation (Urgent) - Authorized Specialty Diagnoses / Procedures Referred By Contac t Referred To Contact Infectious Diseases Diagnoses Osteomyelitis, unspecified site, unspecified type Spinal cord abscess Lorna Bal APRN [address] [place] [address] [facility] Infectious Dis [address] [place] [id number] Referral ID Status Reason Start Date Expiration Date Visits Requested Visits Authorized [id number] Authorized Consult, Test & Treat PCP Updated and/or Approved 12/23/2022 12/23/2023 6 6 Encounter Details Date Type Department Care Team (Latest Contact Info) Description 12/23/2022 Transcribe Orders eDH Incoming Referrals [phone] Lorna Bal APRN [address] [place] [address] Osteomyelitis, unspecified site, unspecified type; Spinal cord abscess Social History Tobacco Use Types Packs/Day Years Used Date Smoking Tobacco: Never Smokeless Tobacco: Never Comments:NO SMOKERS IN THE H OME Alcohol Use Standard Drinks/Week Comments No 0 (1 standard drink = 0.6 oz pur e alcohol) [facility] Inpatient Questions Answer Date Recorded [...] EDT TH Visit (TeleHealth) Infectious Disease at [address] Lilli Joy APRN [facility] [place] [address] 12/03/2023 12:30 PM EDT Office Visit Infectious Disease at [place] [phone] Hollie Ambriz MD [facility] [place] [address] 12/03/2023 2:30 PM EDT Appointment [place] [address] Andrade Melvin MD [facility] [place] [address] Scheduled Referrals Name Type Priority Associated Diagnoses Order Schedule Referral to Infectious Disease and [facility] Outpatient Referral Urgent Osteomyelitis, unspecified site, unspecified type Spinal cord abscess Ordered: 12/23/2022 documented as of this encounter Visit Diagnoses Diagnosis Osteomyelitis, unspecified site, unspecified type Spinal cord abscess Acute osteomyelitis, other specified site documented in this encounter Care Teams Compositor Apprentice Relationship Specialty Start Date End Date Lorna Bal, LAUNDRY WASHER [address] [place] [address] PCP - General Family Medicine 05/27/18 documented as of this encounter
--- OUTSIDE RECORDS SUMMARY | 2023-11-16 16:56 | XMS_ITS | Encounter Summary ---
[place] [address] Care Team Providers Care Sign Manufacturer Name Role Phone Lorna Bal APRN Primary Care Provider +1 -[phone] Encounter Details Date Type Department Care Team (Late st Contact Info) Description 08/25/2022 Transcribe [place] [phone] Lorna Bal APRN [address] [place], [place] [address] Social History Tobacco Use Types Packs/Day Years [...] EDT TH Visit (TeleHealth) Infectious Disease at [place] [phone] Lilli Joy APRN [facility] [place] [address] 12/03/2023 12:30 PM EDT Office [place] [address] Hollie Ambriz MD [facility] [place] [address] 12/03/2023 2:30 PM EDT [place] [address] Andrade Melvin MD [facility] DR [place]AG[place] [address] documented as of this encounter Visit Diagnoses Not on filedocumented in this encounter Care Teams Sign Manufacturer Relationship Specialty Start Date End Date Lorna Bal APRN [address] [place] [address] PCP - General Family Medicine 05/27/18 documented as of this encounter
--- OUTSIDE RECORDS SUMMARY | 2023-11-16 16:56 | XMS_ITS | Encounter Summary ---
Author Organization [facility] [place] [address] Care Team Providers Care Superintendent System Operation Name Role Phone Lorna Bal APRN Primary Care Provider +1 -[phone] Reason for Referral * Consultation (Routine) - Authorized Specialty Diagnoses / Procedures Referred By Contac t Referred To Contact Wound Care Diagnoses Osteomyelitis, unspecified site, unspecified type Spinal cord abscess Lorna Bal APRN [address] [place] [address] [facility] [place] [address] Referral ID Status Reason Start Date Expiration Date Visits Requested Visits Authorized [id number] Authorized Consult, Test & Treat PCP Updated and/or Approved 12/26/2022 12/26/2023 12 12 Encounter Details Date Type Department Care Team (Latest Contact Info) Description 12/26/2022 Transcribe Orders eDH Incoming Referrals [phone] Lorna Bal APRN [address] [place] [address] Osteomyelitis, unspecified site, unspecified type; Spinal cord abscess Social History Tobacco Use Types Packs/Day Years Used Date Smoking Tobacco: Never Smokeless Tobacco: Never Comments:NO SMOKERS IN THE H OME Alcohol Use Standard Drinks/Week Comments No 0 (1 standard drink = 0.6 oz pur e alcohol) [facility] Inpatient Questions Answer Date [...] EDT TH Visit (TeleHealth) Infectious Disease at [place] [address] Lilli Joy APRN [facility] [place] [address] 12/03/2023 12:30 PM EDT Office Visit Infectious Disease at [address] Hollie Ambriz MD [facility] [place] [address] 12/03/2023 2:30 PM EDT Appointment Radiology at [place] [address] Andrade Melvin MD [facility] [place] [address] Scheduled Referrals Name Type Priority Associated Diagnoses Orde r Schedule Referral to Plastic Surgery Outpatient Referral Routine Osteomyelitis, unspecified site, unspecified type Spinal cord abscess Ordered: 12/26/2022 documented as of this encounter Visit Diagnoses Diagnosis Osteomyelitis, unspecified site, unspecified type Spinal cord abscess Acute osteomyelitis, other specified site documented in this encounter Care Teams Superintendent System Operation Relationship Specialty Start Date End Date Lorna Bal, SUPERINTENDENT MARINE [address] [place] [address] PCP - General Family Medicine 05/27/18 documented as of this encounter
--- OUTSIDE RECORDS SUMMARY | 2023-11-16 16:56 | XMS_ITS | Encounter Summary ---
Author Organization [facility] [place] [address] Care Team Providers Care Service Inspector Name Role Phone Lorna Bal APRN Primary Care Provider +1 -[phone] Encounter Details Date Type Department Care Team (Late st Contact Info) Description 09/26/2022 Telephone [place] [phone] Valentina Stanton Social History Tobacco Use Types [...] caregiver Fernanda once we know at number [phone]. This was okay per pt Mom. documented in this encounter Plan of Treatment Upcoming Encounters Date Type Department Care Team (Late st Contact Info) Description 11/19/2023 2:30 PM EDT TH Visit (TeleHealth) [place] [address] Lilli Joy [facility] [place] [address] 12/03/2023 12:30 PM EDT Office [place] [address] Hollie Amrbiz MD [facility] [place] [address] 12/03/2023 2:30 PM EDT Appointment Radiology at [place] [phone] Andrade Melvin MD [facility] [place] [address] documented as of this encounter Visit Diagnoses Not on filedocumented in this encounter Care Teams Service Inspector Relationship Specialty Start Date End Date Lorna Bal APRN [address] [place] [address] PCP - General Family Medicine 05/27/18 documented as of this encounter
--- OUTSIDE RECORDS SUMMARY | 2023-11-16 16:56 | XMS_ITS | Encounter Summary ---
Author Organization [facility] Address [facility] [place] [address] Care Team Providers Care Welder Production Line Arc Name Role Phone Lorna Bal APRN Primary Care Provider [phone] [phone] Reason for Visit * Consultation (Urgent) - Authorized Specialty Diagnoses / Procedures Referred By Contmonica t Referred To Contact Infectious Diseases Diagnoses Osteomyelitis, unspecified site, unspecified type Spinal cord abscess Lorna Bal APRN [address] [place] [address] [facility] [address] [place] [phone] Referral ID Status Reason Start Date Expiration Date Visits Requested Visits Authorized [id number] Authorized Consult, Test & Treat PCP Updated and/or Approved 12/23/2022 12/23/2023 6 6 Encounter Details Date Type Department Care Team (Late st Contact Info) Description 01/29/2023 9:30 AM EDT Office Visit [place] [address] George Tipton MD [facility] [place] [address]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 Followed up with in [place]. MRI was not possible sec. To hardware. CRP/ESR was trending upwards. NSG referred her to [facility] for surgery and patient is scheduled for a procedure on 02/11/23. Patient presents to ID clinic to reestablish care in anticipation that she will need antibiotics after her surgery since she will have new hardware in setting of chronic infection. Patient is accompanied by 2 caregivers. According to the caregivers patient lives in a house in [place] with another roommate. They have been taking [...] All Drainage Procedures 06/25/2022 Mich Martino MD [facility] INTERVENTIONL RAD IR ALL DRAINAGE PROCEDURES 07/04/2022 IR All Drainage Procedures 07/04/2022 Mich Martino MD [facility] INTERVENTIONL RAD IR ALL DRAINAGE PROCEDURES 07/24/2022 IR All Drainage Procedures 07/24/2022 Anurag Kumar MD [facility] INTERVENTION[facility] RAD IR ALL DRAINAGE PROCEDURES 09/26/2022 IR All Drainage Procedures 09/26/2022 Jamaal Jenkins, DO [facility] INTERVENTION[facility] RAD IR DRAIN CHECK/CHANGE/REMOVE 07/01/2022 IR Drain Check/Change/Remove 07/01/2022 Jamaal Jenkins, DO [facility] INTERVENTIONL RAD IR DRAIN CHECK/CHANGE/REMOVE 08/11/2022 IR Drain Check/Change/Remove 08/11/2022 Piter Self MD [facility] INTERVENTIONL RAD IR DRAIN CHECK/CHANGE/REMOVE 08/25/2022 IR Drain Check/Change/Remove 08/25/2022 Jamaal Jenkins, DO [facility] INTERVENTIONL RAD IR DRAIN CHECK/CHANGE/REMOVE 09/10/2022 IR Drain Check/Change/Remove 09/10/2022 Mich Martino MD [facility] INTERVENTIONL RAD PRO APPLY OF HIP CASTS, TWO LEGS 08/15/2010 CAST APPLICATION, HIP SPICA, BOTH LEGS performed by BARRERA OLIVER at [facility] MAIN OR PRO I&D, POST SPINE, LUMB/SACR/LUMBOSAC N/A 05/20/2014 @I & D, OPEN, DEEP ABSCESS, LUMBAR, SACRAL, LUMBOSACRAL performed by Freddy Isbell MD at [facility] MAIN OR PRO I&D, POST SPINE, LUMB/SACR/LUMBOSAC N/A 05/26/2014 @I & D, OPEN, DEEP ABSCESS, LUMBAR, SACRAL, LUMBOSACRAL performed by Freddy Isbell MD at [facility] MAIN OR PRO IMPACT TOOTH REMOV COMP BONY N/A 06/14/2018 SURGICAL EXTRACTIONS, REMOVAL OF IMPACTED TOOTH, COMPLETELY BONY (WRVU 1.93) performed by Keith Cotton MD at [facility] OSC PRO OSTEOTOMY FEMUR SHAFT/SUPRACONDY 08/15/2010 ??OSTEOTOMY, FEMUR SHAFT OR SUPRACONDYLAR W/O FIXATION performed by BARRERA OLIVER at [facility] MAIN OR PRO RECONSTRUC HIP SOCKET, RESEC FEM HEAD 08/15/2010 ??ACETABULOPLASTY (GIRDLESTONE), RESECTION FEMORAL HEAD, BILATERAL performed by BARRERA OLIVER [facility] MAIN OR PRO REMOVAL DEEP IMPLANT 08/15/2010 REMOVAL IMPLANT, DEEP, BRUNO performed by BARRERA OLIVER at [facility] MAIN OR PRO REMOVAL ERUPTED TOOTH WITH ELEVATION OF MUCOPERIOSTEAL FLAP N/A 06/14/2018 SURGICAL EXTRACTIONS REQUIRING ELEVATION OF MUCOPERIOSTEAL FLAP AND REMOVAL OF BONE OR SECTION OF TOOTH (WRVU 1.09) performed by Keith Cotton MD at [facility] OSC PRO REMOVE INFUSN DEVICE/PUMP N/A 05/11/2014 REMOVAL OF SPINE INFUSION PUMP performed by Jamaal Samuel MD at [facility] MAIN OR PRO REMOVE SPINAL CANAL CATHETER N/A 05/11/2014 REMOVAL OF INTRATHECAL OR EPIDURAL CATHETER performed by Jamaal Samuel MD at [facility] MAIN OR PRO REPR, DURAL/CSF LEAK, NOT REQ LAMINECTOMY N/A 05/20/2014 @REPAIR DURAL\CSF LEAK,NOT REQUIRING LAMINECTOMY performed by Freddy Isbell MD at [facility] MAIN OR Allergies: Allergies Allergen Reactions Fluoxetine Other (See Comments) HIVES, HEART RACES Tegaderm [Transparent Dressings] Itching and Dermatitis Please use [id number] Penicillins Immunization History: Immunization History Administered Date(s) Administered Influenza Vaccine (Novel) P1M5-33, Injectable 02/25/2009 Influenza Vaccine w/Preservative, Split 04/25/2011 Influenza Vaccine, Whole 03/27/2009 Family History: Family History Problem Relation Age of Onset Cancer Maternal Grandmother Heart Disease Maternal Grandfather Social History: Hx of CP, lives in a halfway with care givers. ROS: 14 point ROS [...] Patient is being evaluated by neurosurgery in [facility] and is scheduled to undergo revision lumbar interbody fusion. We are evaluating the patient in anticipation that she will need antibiotics postprocedure. After discussing with the caregivers we decided to hold Bactrim as it will increase the yield of intraoperative cultures. Once surgery is performed in [facility] patient will need ID follow-up inpatient and then her care can be transitioned over to our clinic since it is closer to [place]. At this time Bactrim will be held [...] Dr. Nikolay Tipton MD Infectious Diseases Fellow-PGY5 [facility] Pager: [phone] 01/28/2023 10:38 AM * Nikolay Abmriz MD - 01/29/2023 9:30 AM EDT ID [...] later this month at a hospital in [place]. I actually think this poses a good [...] ID office after her surgery occurs. Nikolay Ambriz MD Staff Physician in Infectious Diseases documented in this encounter Miscellaneous Notes * Addendum Note - Nikolay Ambriz MD - 01/29/2023 9:30 AM EDTAddended by: NIKOLAY AMBRIZ on: 02/03/2023 05:09 PM Modules accepted: Level of Service documented in this encounter Plan of Treatment Upcoming Encounters Date Type Department Care Team (Late st Contact Info) Description 11/19/2023 2:30 PM EDT TH Visit (TeleHealth) [place] [address] Lilli Joy APRN [facility] [place] [address] 12/03/2023 12:30 PM EDT Office Visit Infectious Disease at [place] [phone] Nikolay Ambriz MD [facility] [place] [address] 12/03/2023 2:30 PM EDT Appointment Radiology at [place] [phone] Andrade Melvin MD [facility] [place] [address] documented as of this encounter 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
--- OUTSIDE RECORDS SUMMARY | 2023-11-16 16:56 | XMS_ITS | Encounter Summary ---
Author Organization [facility] [place] [address] Care Team Providers Care Decorative Greens Cutter Name Role Phone Lorna Bal APRN Primary Care Provider [phone] Encounter Details Date Type Department Care Team (Late st Contact Info) Description 09/24/2022 Telephone [place] [phone] Sergey Keane MD [facility] [place] [address] Social History Tobacco Use Types Packs/Day Years Used Date Smoking Tobacco: Never Smokeless Tobacco: Never Comments:NO SMOKERS IN THE H OME Alcohol Use Standard Drinks/Week Comments No 0 (1 standard drink = 0.6 oz pur e alcohol) [facility] Inpatient Questions Answer Date Recorded Does Anyone [...] stable to go to her appt in [place] tomorrow with NSG to show them the lesions and see if they can do something about it. I discussed I had limited ability to assist and that a change of antibiotics without new cultures and drainage was not a great idea and the I would be happy to work with either IR here or NSG in [place] to assist. Discussed warning signs to present to the ED. I suspect she just has continued inflammation of the hardware and now that the drain is out it is reaccumulating. Likely will need a chronic drain or surgery. This will be up to NSG on [place]. * Telephone Encounter - Maryanne Sarabia RN [...] Tana has a neurosurgery appt tomorrow in [place]. Mom can be reached at [phone] until 5 pm. Then after 5 pm call Fannie Villarreal [phone]. Note forwarded to Dr. Gerber Dasilva and Dr. Sergey Doan. documented in this encounter Plan of Treatment Upcoming Encounters Date Type Department Care Team (Late st Contact Info) Description 11/19/2023 2:30 PM EDT TH Visit (TeleHealth) Infectious Disease at [place] [address] Lilli Joy APRN [facility] [place] [address] 12/03/2023 12:30 PM EDT Office Visit Infectious Disease at [address] Hollie Ambriz MD [facility] [place] [address] 12/03/2023 2:30 PM EDT [place] [address] Andrade Melvin MD [facility] [place] [address] documented as of this encounter Visit Diagnoses Not on filedocumented in this encounter Care Teams Decorative Greens Cutter Relationship Specialty Start Date End Date Lorna Bal APRN [address] [place] [address] PCP - General Family Medicine 05/27/18 documented as of this encounter
--- OUTSIDE RECORDS SUMMARY | 2023-11-16 16:56 | XMS_ITS | Encounter Summary ---
Author Organization [facility] Address [facility] [place] [address] Care Team Providers Care Financial Services Intern Name Role Phone Lorna Bal APRN Primary Care Provider [phone] Encounter Details Date Type Department Care Team (Late st Contact Info) Description 09/24/2022 Orders Only Radiology at [facility] [place] [address] Hank Nunez [place] [address] Social History Tobacco Use Types Packs/Day Years Used Date Smoking Tobacco: Never Smokeless Tobacco: Never Comments:NO SMOKERS IN THE H OME Alcohol Use Standard Drinks/Week Comments No 0 (1 standard drink = 0.6 oz pur e alcohol) [facility] Inpatient Questions Answer Date Recorded Does Anyone [...] Radiology - Progress Note Patient Name: Tana Cavaozs : 1995 MR#: [id number] Spoke with [place] regarding concerns regarding overall plan for Tana. Recommended she attend her appointments in [place] in hope of guiding toward more definitive [...] EDT TH Visit (TeleHealth) Infectious Disease at [place] [phone] Lilli Joy APRN [facility] [address] [place] [address] 12/03/2023 12:30 PM EDT Office Visit Infectious Disease at [place] [phone] Hollie Ambriz MD [facility] [place] [address] 12/03/2023 2:30 PM EDT Appointment Radiology at [place] [phone] Andrade Melvin MD [facility] [place] [address] documented as of this encounter Visit Diagnoses Not on filedocumented in this encounter Care Teams Financial Services Intern Relationship Specialty Start Date End Date Lorna Bal APRN [address] [place] [address] PCP - General Family Medicine 05/27/18 documented as of this encounter
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
--- OUTSIDE RECORDS SUMMARY | 2023-11-16 16:56 | XMS_ITS | Encounter Summary ---
Author Organization [facility] [place] [address] Care Team Providers Care Machine Former Name Role Phone Lorna Bal APRN Primary Care Provider [phone] Encounter Details Date Type Department Care Team (Late st Contact Info) Description 09/24/2022 Telephone [place] [phone] Valentina Stanton Social History Tobacco Use Types [...] EDT TH Visit (TeleHealth) Infectious Disease at [place] [phone] Lilli Joy APRN [facility] [place] [address] 12/03/2023 12:30 PM EDT Office Visit Infectious Disease at [address] Hollie Ambriz MD [facility] [place] [address] 12/03/2023 2:30 PM EDT Appointment Radiology at [place] [phone] Andrade Melvin MD [facility] [place] [address] documented as of this encounter Visit Diagnoses Not on filedocumented in this encounter Care Teams Machine Former Relationship Specialty Start Date End Date Lorna Bal APRN [address] [place] [address] PCP - General Family Medicine 05/27/18 documented as of this encounter
--- OUTSIDE RECORDS SUMMARY | 2023-11-16 16:56 | XMS_ITS | Encounter Summary ---
Author Organization [place] [address] Care Team Providers Care Product Marketing Programs Manager Name Role Phone Lorna Bal APRN Primary Care Provider [phone] Encounter Details Date Type Department Care Team (Late st Contact Info) Description 09/08/2022 Tele[place] [address] Sergey Keane MD [facility] [place] [address] Social History Tobacco Use Types Packs/Day Years [...] moving forward. Patient was recently seen at [facility] for a second opinion. I had the opportunity to speak with the attending physician Dr Patel on 09/03. At the time we discussed Mrs Cavazos clinical course and therapies provided here at [facility]. After our conversation she mentioned that she [...] EDT TH Visit (TeleHealth) [place] [address] Lilli Joy APRN [facility] [place] [address] 12/03/2023 12:30 PM EDT Office Visit [place] [address] Hollie Ambriz MD [facility] INFECTIOUS [place] [address] 12/03/2023 2:30 PM EDT Appointment [place] [address] Andrade Melvin MD [facility] DR [place] [address] documented as of this encounter Visit Diagnoses Not on filedocumented in this encounter Care Teams Product Marketing Programs Manager Relationship Specialty Start Date End Date Lorna Bal APRN [address] [place] [address] PCP - General Family Medicine 05/27/18 documented as of this encounter
--- OUTSIDE RECORDS SUMMARY | 2023-11-16 16:56 | XMS_ITS | Encounter Summary ---
Author Organization [facility] [place] [address] Care Team Providers Care Pharmacognosy Teacher Name Role Phone Lorna Bal APRN Primary Care Provider +1 -[phone] Reason for Referral * Diagnostic Test (Routine) - Closed Specialty Diagnoses / Procedures Referred By Contac t Referred To Contact Radiology Diagnoses Spinal abscess Procedures CT Lumbar Spine w Contrast Jamar Dasilva MD [facility] [place] [address] [facility] [place] [address] Referral ID Status Reason Start Date Expiration Date V isits Requested Visits Authorized [id number] Closed Specialty Service Requested 09/25/2022 03/27/2024 1 1 Encounter Details Date Type Department Care Team (Late st Contact Info) Description 09/25/2022 Orders Only [place] [address] Jamar Dasilva MD [facility] [place] [address] Spinal abscess Social History Tobacco [...] TH Visit (TeleHealth) [place] [address] Lilli Joy APRN [facility] [place], [place] [address] 12/03/2023 12:30 PM EDT Office Visit Infectious Disease at [place] [phone] Hollie Ambriz MD [facility] [place] [address] 12/03/2023 2:30 PM EDT [place] [address] Andrade Melvin MD [facility] [place] [address] documented as of this encounter Results * [...] who have questions please contact the health rn managed care that requested your imaging first. ? Electronically signed by: Pantera Salazar MD, [facility] [place] ([phone]), at 09/26/2022 10:59 AM Narrative 09/26/2022 10:59 [...] patients who have questions please contactthe health rn managed care that requested your imaging first. Electronically signed by: Pantera Salazar MD, [facility] [place]([phone]), at 09/26/2022 10:59 AM Jamar Dasilva MD IMG CT ORDERABLES documented in this encounter Visit Diagnoses Diagnosis Spinal abscess Acute osteomyelitis, other specified site Spinal abscess Acute osteomyelitis, other specified site documented in this encounter Care Teams Pharmacognosy Teacher Relationship Specialty Start Date End Date Lorna Bal APRN [address] [place] [address] PCP - General Family Medicine 05/27/18 documented as of this encounter
--- OUTSIDE RECORDS SUMMARY | 2023-11-16 16:56 | XMS_ITS | Encounter Summary ---
Author Organization [facility] [place] [address] Care Team Providers Care Track Car Operator Name Role Phone Lorna Bal APRN Primary Care Provider +1 -[phone] Encounter Details Date Type Department Care Team (Late st Contact Info) Description 01/29/2023 1:00 PM EDT Office [place] [phone] Reji Macdonald MD [facility] [place] [address] Spinal abscess Social History Tobacco Use Types [...] her postoperative care for planned operation and [place]. She is here with her caregivers but her mother is her legal guardian. She has been seen at [facility] been seen by the orthopedic team and infectious diseases for extended periods of time. It is unclear as to what the long-term plan was for management of thisbut eventually apparently she made it to [place] after referral by infectious disease and then subsequently was referred to [place]. At that point time she was seen [...] All Drainage Procedures 06/25/2022 Mich Martino MD [facility] RAD IR ALL DRAINAGE PROCEDURES 07/04/2022 IR All Drainage Procedures 07/04/2022 Mich Martino MD [facility] RAD IR ALL DRAINAGE PROCEDURES 07/24/2022 IR All Drainage Procedures 07/24/2022 Anurag Kumar MD [facility] RAD IR ALL DRAINAGE PROCEDURES 09/26/2022 IR All Drainage Procedures 09/26/2022 Jamaal Jenkins, DO [facility] RAD IR DRAIN CHECK/CHANGE/REMOVE 07/01/2022 IR Drain Check/Change/Remove 07/01/2022 Jamaal Jenkins, DO [facility] RAD IR DRAIN CHECK/CHANGE/REMOVE 08/11/2022 IR Drain Check/Change/Remove 08/11/2022 Piter Self MD [facility] RAD IR DRAIN CHECK/CHANGE/REMOVE 08/25/2022 IR Drain Check/Change/Remove 08/25/2022 Jamaal Jenkins, DO [facility] RAD IR DRAIN CHECK/CHANGE/REMOVE 09/10/2022 IR Drain Check/Change/Remove 09/10/2022 Mich Martino MD [facility] RAD PRO APPLY OF HIP CASTS, TWO LEGS 08/15/2010 CAST APPLICATION, HIP SPICA, BOTH LEGS performed by BARRERA OLVIER at [facility] MAIN OR PRO I&D, POST SPINE, LUMB/SACR/LUMBOSAC N/A 05/20/2014 @I & D, OPEN, DEEP ABSCESS, LUMBAR, SACRAL, LUMBOSACRAL performed by Freddy Isbell MD at [facility] MAIN OR PRO I&D, POST SPINE, LUMB/SACR/LUMBOSAC N/A 05/26/2014 @I & D, OPEN, DEEP ABSCESS, LUMBAR, SACRAL, LUMBOSACRAL performed by Freddy Isbell MD at [facility] MAIN OR PRO IMPACT TOOTH REMOV COMP BONY N/A 06/14/2018 SURGICAL EXTRACTIONS, REMOVAL OF IMPACTED TOOTH, COMPLETELY BONY (WRVU 1.93) performed by Keith Cotton MD at [facility] OSC PRO OSTEOTOMY FEMUR SHAFT/SUPRACONDY 08/15/2010 ??OSTEOTOMY, FEMUR SHAFT OR SUPRACONDYLAR W/O FIXATION performed by BARRERA OLIVER at [facility] MAIN OR PRO RECONSTRUC HIP SOCKET, RESEC FEM HEAD 08/15/2010 ??ACETABULOPLASTY (GIRDLESTONE), RESECTION FEMORAL HEAD, BILATERAL performed by BARRERA OLIVER [facility] MAIN OR PRO REMOVAL DEEP IMPLANT 08/15/2010 REMOVAL IMPLANT, DEEP, BRUNO performed by BARRERA OLIVER at [facility] MAIN OR PRO REMOVAL ERUPTED TOOTH WITH ELEVATION OF MUCOPERIOSTEAL FLAP N/A 06/14/2018 SURGICAL EXTRACTIONS REQUIRING ELEVATION OF MUCOPERIOSTEAL FLAP AND REMOVAL OF BONE OR SECTION OF TOOTH (WRVU 1.09) performed by Keith Cotton MD at [facility] OSC PRO REMOVE INFUSN DEVICE/PUMP N/A 05/11/2014 REMOVAL OF SPINE INFUSION PUMP performed by Jamaal Samuel MD at [facility] MAIN OR PRO REMOVE SPINAL CANAL CATHETER N/A 05/11/2014 REMOVAL OF INTRATHECAL OR EPIDURAL CATHETER performed by Jamaal Samuel MD at [facility] MAIN OR PRO REPR, DURAL/CSF LEAK, NOT REQ LAMINECTOMY N/A 05/20/2014 @REPAIR DURAL\CSF LEAK,NOT REQUIRING LAMINECTOMY performed by Freddy Isbell MD at [facility] MAIN OR Social History Socioeconomic History [...] [Transparent Dressings] Itching and Dermatitis Please use [id number] Cyclobenzaprine Other Reaction(s): Not available Penicillins Current [...] EDT TH Visit (TeleHealth) Infectious [place] [address] Lilli Joy APRN [facility] [place] [address] 12/03/2023 12:30 PM EDT Office Visit Infectious Disease at [place] [phone] Hollie Ambriz MD [facility] [place] [address] 12/03/2023 2:30 PM EDT Appointment Radiology at [place] [phone] Andrade Melvin MD [facility] [place] [address] documented as of this encounter Visit Diagnoses Diagnosis Spinal abscess Acute osteomyelitis, other specified site documented in this encounter Care Teams Track Car Operator Relationship Specialty Start Date End Date Lorna Bal APRN [address] [place] [address] PCP - General Family Medicine 05/27/18 documented as of this encounter
--- OUTSIDE RECORDS SUMMARY | 2023-11-16 16:56 | XMS_ITS | Encounter Summary ---
[place] [address] Care Team Providers Care Systems Spec Name Role Phone Lorna Bal APRN Primary Care Provider +1 -[phone] Encounter Details Date Type Department Care Team [...] (TeleHealth) Infectious Disease at [facility] [place] [address] Lilli Joy APRN [facility] [place] [address] 12/03/2023 12:30 PM EDT Office Visit Infectious Disease at [place] [phone] Hollie Ambriz MD [facility] [place] [address] 12/03/2023 2:30 PM EDT Appointment [place] [address] Andrade Melvin MD [facility] [place] [address] documented as of this encounter Visit Diagnoses Not on filedocumented in this encounter Care Teams Systems Spec Relationship Specialty Start Date End Date Lorna Bal APRN [address] [place] [address] PCP - General Family Medicine 05/27/18 documented as of this encounter
--- OUTSIDE RECORDS SUMMARY | 2023-11-16 16:56 | XMS_ITS | Encounter Summary ---
Author Organization [facility] [place] [address] Care Team Providers Care Clinical Nurse Educator Name Role Phone Lorna Bal APRN Primary Care Provider +1 -[phone] Encounter Details Date Type Department Care Team (Late st Contact Info) Description 10/27/2022 Telephone Infect[place] [phone] Halima García Social History Tobacco Use Types [...] EDT TH Visit (TeleHealth) Infectious Disease at [place] [address] Lilli Joy APRN [facility] [place] [address] 12/03/2023 12:30 PM EDT Office Visit Infectious Disease at [place] [address] Hollie Ambriz MD [facility] DR INFECTIOUS [place] [address] 12/03/2023 2:30 PM EDT Appointment Radiology at [address] Andrade Melvin MD [facility] DIAGNOSTIC [place] [address] documented as of this encounter Visit Diagnoses Not on filedocumented in this encounter Care Teams Clinical Nurse Educator Relationship Specialty Start Date End Date Lorna Bal APRN [address] [place] [address] PCP - General Family Medicine 05/27/18 documented as of this encounter
--- OUTSIDE RECORDS SUMMARY | 2023-11-16 16:56 | XMS_ITS | Encounter Summary ---
Author Organization Replaced By [facility] [place] [address] Care Team Providers Care Process Inspector Name Role Phone Lorna Bal APRN Primary Care Provider +1 -[phone] Encounter Details Date Type Department Care Team (Latest Contact Info) Description 08/25/2022 Transcribe [place] [phone] Lorna Bal APRN [address] [place], [place] [id number] Escherichia coli septicemia; Intraspinal abscess; Spinal cord [...] EDT TH Visit (TeleHealth) Infectious Disease at [place] [address] Lilli Joy APRN [facility] [address] 12/03/2023 12:30 PM EDT Office [place] [address] Hollie Ambriz MD [facility] [place] [address] 12/03/2023 2:30 PM ED[place] [address] Andrade Melvin MD [facility] [place] [address] documented as of this encounter Visit Diagnoses Diagnosis Escherichia coli septicemia Septicemia due to Escherichia coli (E. coli) Intraspinal abscess Spinal cord abscess Acute osteomyelitis, other specified site documented in this encounter Care Teams Process Inspector Relationship Specialty Start Date End Date Lorna Bal APRN [address] [place] [address] PCP - General Family Medicine 05/27/18 documented as of this encounter
--- OUTSIDE RECORDS SUMMARY | 2023-11-16 16:56 | XMS_ITS | Encounter Summary ---
Author Organization [facility] [address] Care Team Providers Care Tag Marker Name Role Phone Lorna Bal APRN Primary Care Provider +1 -[phone] Encounter Details Date Type Department Care Team (Late st Contact Info) Description 09/25/2022 Telephone [place] [address] Valentina Stanton Social History Tobacco Use Types [...] EDT TH Visit (TeleHealth) Infectious Disease at [place] [phone] Lilli Joy APRN [facility] [place] [address] 12/03/2023 12:30 PM EDT Office Visit Infectious Disease at [address] Hollie Ambriz MD [facility] [place] [address] 12/03/2023 2:30 PM EDT Appointment Radiology at [place] [phone] Andrade Melvin MD [facility] [place] [address] documented as of this encounter Visit Diagnoses Not on filedocumented in this encounter Care Teams Tag Marker Relationship Specialty Start Date End Date Lorna Bal APRN [address] [place] [address] PCP - General Family Medicine 05/27/18 documented as of this encounter
--- OUTSIDE RECORDS SUMMARY | 2023-11-16 16:56 | XMS_ITS | Encounter Summary ---
[place] [address] Care Team Providers Care Furniture Maker Name Role Phone Lorna Bal APRN Primary Care Provider +1 -[phone] Reason for Referral * Consultation (Routine) - Authorized Specialty Diagnoses / Procedures Referred By Contmonica t Referred To Contact Gastroenterology Diagnoses Constipation, unspecified constipation type constipation Lorna Bal APRN [address] [place] [address] [facility] [address] [place] [phone] Referral ID Status Reason Start Date Expiration Date Visits Requested Visits Authorized [id number] Authorized Consult, Test & Treat PCP Updated and/or Approved 01/30/2023 01/30/2024 12 12 Encounter Details Date Type Department Care Team (Latest Contact Info) Description 01/30/2023 Transcribe Orders eDH Incoming Referrals [phone] Lorna Bal APRN [address] [place], [place] [id number] Constipation, unspecified constipation type Social History Tobacco Use Types Packs/Day Years Used Date Smoking Tobacco: Never Smokeless Tobacco: Never Comments:NO SMOKERS IN THE H OME Alcohol Use Standard Drinks/Week Comments No 0 (1 standard drink = 0.6 oz pur e alcohol) [facility] Inpatient Questions Answer Date Recorded [...] EDT TH Visit (TeleHealth) Infectious Disease at [place] [address] Lilli Joy APRN [facility] [place] [address] 12/03/2023 12:30 PM EDT Office Visit Infectious Disease at [address] Hollie Ambriz MD [facility] [place] [address] 12/03/2023 2:30 PM EDT Appointment Radiology at [place] [address] Andrade Melvin MD [facility] [place] [address] Scheduled Referrals Name Type Priority Associated Diagnoses Order Schedule Referral to Gastroenterology Outpatient Referral Routine Constipation, unspecified constipation type Ordered: 01/30/2023 documented as of this encounter Visit Diagnoses Diagnosis Constipation, unspecified constipation type documented in this encounter Care Teams Furniture Maker Relationship Specialty Start Date End Date Lorna Bal APRN [address] [place] [address] PCP - General Family Medicine 05/27/18 documented as of this encounter
--- OUTSIDE RECORDS SUMMARY | 2023-11-16 16:56 | XMS_ITS | Encounter Summary ---
Author Organization [facility] [place] [address] Care Team Providers Care Technical Sales Consultant Name Role Phone Lorna Bal APRN Primary Care Provider +1 -[phone] Encounter Details Date Type Department Care Team (Late st Contact Info) Description 09/25/2022 Telephone [place] [phone] Jamar Dasilva MD [facility] [place] [address] Social History Tobacco Use Types Packs/Day Years [...] status. Tana saw her neurosurgeon today in [place]. He feels that her symptoms are an allergic reaction to the current abx and requests that the abx be changed. The neurosurgeon said that they need to go in and remove a screw and clean out the area around the meredith in Tana's back. They do not want to do this at [facility] as it will require a plastic surgeon to close up due to Tana's skin being compromised. Javed relays that the neurosurgeon is trying to arrange surgery in [place] where a plastic surgeon is available. The [...] went over 68 she needed to go [facility] ED. Should she do that? No fever and WBC is normal. #4- Can Dr. Dasilva help to schedule an appt with radiology to have the drains put back in? documented in this encounter Plan of Treatment Upcoming Encounters Date Type Department Care Team (Late st Contact Info) Description 11/19/2023 2:30 PM EDT TH Visit (TeleHealth) [place] [address] Lilli Joy APRN [facility] [place] [address] 12/03/2023 12:30 PM EDT Office [place] [address] Hollie Ambriz MD [facility] [place] [address] 12/03/2023 2:30 PM EDT [place] [address] Andrade Melvin MD [facility] [place] [address] documented as of this encounter Visit Diagnoses Not on filedocumented in this encounter Care Teams Technical Sales Consultant Relationship Specialty Start Date End Date Lorna Bal APRN [address] [place] [address] PCP - General Family Medicine 05/27/18 documented as of this encounter
--- OUTSIDE RECORDS SUMMARY | 2023-11-16 16:56 | XMS_ITS | Encounter Summary ---
Author Organization [facility] [place] [address] Care Team Providers Care Division Road Supervisor Name Role Phone Lorna Bal APRN Primary Care Provider +1 -[phone] Encounter Details Date Type Department Care Team (Late st Contact Info) Description 09/08/2022 Telephone [place] [address] Valentina Stanton Social History Tobacco Use Types [...] EDT TH Visit (TeleHealth) Infectious Disease at [place] [phone] Lilli Joy APRN [facility] [place] [address] 12/03/2023 12:30 PM EDT Office Visit Infectious Disease at [address] Hollie Ambriz MD [facility] [place] [address] 12/03/2023 2:30 PM EDT Appointment Radiology at [place] [phone] Andrade Melvin MD [facility] [place] [address] documented as of this encounter Visit Diagnoses Not on filedocumented in this encounter Care Teams Division Road Supervisor Relationship Specialty Start Date End Date Lorna Bal APRN [address] [place] [address] PCP - General Family Medicine 05/27/18 documented as of this encounter
--- OUTSIDE RECORDS SUMMARY | 2023-11-16 16:56 | XMS_ITS | Encounter Summary ---
Author Organization [place] [address] Care Team Providers Care Machine Stapler Name Role Phone Lorna Bal APRN Primary Care Provider +1 -[phone] Reason for Referral * Diagnostic Test (Routine) - Closed Specialty Diagnoses / Procedures Referred By Contac t Referred To Contact Radiology Diagnoses Spinal abscess Procedures CT Lumbar Spine w Contrast Jamar Dasilva MD [facility] [place] [address] [facility] [place] [address] Referral ID Status Reason Start Date Expiration Date V isits Requested Visits Authorized [id number] Closed Specialty Service Requested 09/25/2022 03/27/2024 1 1 Reason for Visit * Diagnostic Test (Routine) - Closed Specialty Diagnoses / Procedures Referred By Contac t Referred To Contact Radiology Diagnoses Spinal abscess Procedures CT Lumbar Spine w Contrast Jamar Dasilva MD [facility] [place] [address] [facility] [place] [address] Referral ID Status Reason Start Date Expiration Date V isits Requested Visits Authorized [id number] Closed Specialty Service Requested 09/25/2022 03/27/2024 1 1 Encounter Details Date Type Department Care Team (Latest Contact Info) Description 09/26/2022 10:24 AM EDT - 09/26/2022 12:12 PM EDT Hospital Encounter [place] [address] Jamar Dasilva MD [facility] [place] [address] Spinal abscess Discharge Disposition: Home [...] EDT TH Visit (TeleHealth) Infectious Disease at [place] [phone] Lilli Joy APRN [facility] [place] [address] 12/03/2023 12:30 PM EDT Office Visit Infectious Disease at [place] [phone] Hollie Ambriz MD [facility] INFECTIOUS DISEASE [place], [place] [address] 12/03/2023 2:30 PM EDT Appointment Radiology at [place] [phone] Andrade Melvin MD [facility] DR [place] [address] documented as of this encounter Procedures Procedure [...] who have questions please contact the health manager medicare that requested your imaging first. ? Electronically signed by: Pantera Salazar MD, [facility] ([phone]), at 09/26/2022 10:59 AM Narrative 09/26/2022 10:59 [...] patients who have questions please contactthe health manager medicare that requested your imaging first. Electronically signed by: Pantera Salazar MD, [facility]([phone]), at 09/26/2022 10:59 AM Jamar Dasilva MD [...] mLs documented in this encounter Care Teams Machine Stapler Relationship Specialty Start Date End Date Lorna Bal, APPLIANCE REPAIR TECHNICIAN [address] [place] [address] PCP - General Family Medicine 05/27/18 documented as of this encounter
--- OUTSIDE RECORDS SUMMARY | 2023-11-16 16:56 | XMS_ITS | Encounter Summary ---
[place] [address] Care Team Providers Care Carpenter Packing Name Role Phone Lorna Bal APRN Primary Care Provider +1 -[phone] Encounter Details Date Type Department Care Team (Latest Contact Info) Description 01/29/2023 Travel Social History Tobacco Use Types Packs/Day Years Used Date Smoking Tobacco: Never Smokeless Tobacco: Never Comments:NO SMOKERS IN THE H OME Alcohol Use Standard Drinks/Week Comments No 0 (1 standard drink = 0.6 oz pur e alcohol) [facility] Inpatient Questions Answer Date Recorded Does Anyone [...] EDT TH Visit (TeleHealth) Infectious Disease [place] [address] Lilli Joy [place] [address] 12/03/2023 12:30 PM EDT Office Visit Infectious Disease at [place] [phone] Hollie Ambriz MD [facility] [place] [address] 12/03/2023 2:30 PM EDT [place] [address] Andrade Melvin MD [facility] [place] [address] documented as of this encounter Visit Diagnoses Not on filedocumented in this encounter Care Teams Carpenter Packing Relationship Specialty Start Date End Date Lorna Bal APRN [address] [place] [address] PCP - General Family Medicine 05/27/18 documented as of this encounter
--- OUTSIDE RECORDS SUMMARY | 2023-11-16 16:56 | XMS_ITS | Encounter Summary ---
[place] [address] Care Team Providers Care Scalping Machine Operator Name Role Phone Lorna Bal APRN Primary Care Provider [phone] [phone] Encounter Details Date Type Department Care Team (Latest Contact Info) Description 12/31/2022 Travel Social History Tobacco Use Types Packs/Day Years Used Date Smoking Tobacco: Never Smokeless Tobacco: Never Comments:NO SMOKERS IN THE H OME Alcohol Use Standard Drinks/Week Comments No 0 (1 standard drink = 0.6 oz pur e alcohol) [facility] Inpatient Questions Answer Date Recorded Does Anyone [...] EDT TH Visit (TeleHealth) Infectious Disease at [facility] [place] [phone] Lilli Joy APRN [facility] [place] [address] 12/03/2023 12:30 PM EDT Office Visit Infectious Disease at [place] [phone] [facility] [place] [address] 12/03/2023 2:30 PM EDT [place] [address] [facility] [place] [address] documented as of this encounter Visit Diagnoses Not on filedocumented in this encounter Care Teams Scalping Machine Operator Relationship Specialty Start Date End Date Lorna Bal APRN [address] [place] [address] PCP - General Family Medicine 05/27/18 documented as of this encounter
--- OUTSIDE RECORDS SUMMARY | 2023-11-16 16:56 | XMS_ITS | Encounter Summary ---
[place] [address] Care Team Providers Care Business Unit Leader Name Role Phone Lorna Bal APRN Primary Care Provider [phone] [phone] Reason for Referral * Diagnostic Test (Routine) - Closed Specialty Diagnoses / Procedures Referred By Contac t Referred To Contact Radiology Diagnoses Spinal abscess Procedures IR All Drainage Procedures IR All Biopsy Procedures Jamar Dasilva MD [facility] [place] [address] [place] [address] Referral ID Status Reason Start Date Expiration Date V isits Requested Visits Authorized [id number] Closed Specialty Service Requested 09/26/2022 03/28/2024 1 1 Reason for Visit * Diagnostic Test (Routine) - Closed Specialty Diagnoses / Procedures Referred By Contac t Referred To Contact Radiology Diagnoses Spinal abscess Procedures IR All Drainage Procedures IR All Biopsy Procedures Jamar Dasilva MD [facility] [place] [address] [place] [address] Referral ID Status Reason Start Date Expiration Date V isits Requested Visits Authorized [id number] Closed Specialty Service Requested 09/26/2022 03/28/2024 1 1 Encounter Details Date Type Department Care Team (Latest Contact Info) Description 09/26/2022 12:13 PM EDT - 09/26/2022 11:59 PM EDT Hospital En[place] [address] Jamar Dasilva MD [facility] [place] [address] Spinal abscess Discharge Disposition: Home [...] is during regular office hours, please call [phone]. If it is after regular office hours, or on weekends or holidays, please call [phone] and ask to speak to the Pediatric Medical Assistant security operations specialist for Interventional Radiology. You have received [...] of : 1995 AGE: 27 y.o. Address: [address] [place] [address] Phone: [phone] (home) Mobile: Telephone Information: Referring Provider: Jamar Dasilva REASON FOR VISIT: Paralumbar fluid aspiration Order Questions Answers Where will study be performed? [facility] Radiology [120] Is the patient on anticoagulant [...] [Transparent Dressings] Itching and Dermatitis Please use [id number] ??? Penicillins Pertinent PMH: Patient Active Problem [...] Questions Answers Where will study be performed? [facility] Radiology [120] Is the patient on anticoagulant [...] All Drainage Procedures 06/25/2022 Mich Martino MD [facility] INTERVENTIONL RAD ??? IR ALL DRAINAGE PROCEDURES 07/04/2022 IR All Drainage Procedures 07/04/2022 Mich Martino MD [facility] INTERVENTIONL RAD ??? IR ALL DRAINAGE PROCEDURES 07/24/2022 IR All Drainage Procedures 07/24/2022 Anurag Kumar MD [facility] INTERVENTIONL RAD ??? IR DRAIN CHECK/CHANGE/REMOVE 07/01/2022 IR Drain Check/Change/Remove 07/01/2022 Jamaal Jenkins, DO [facility] INTERVENTIONL RAD ??? IR DRAIN CHECK/CHANGE/REMOVE 08/11/2022 IR Drain Check/Change/Remove 08/11/2022 Piter Self MD [facility] INTERVENTIONL RAD ??? IR DRAIN CHECK/CHANGE/REMOVE 08/25/2022 IR Drain Check/Change/Remove 08/25/2022 Jamaal Jenkins, DO [facility] INTERVENTIONL RAD ??? IR DRAIN CHECK/CHANGE/REMOVE 09/10/2022 IR Drain Check/Change/Remove 09/10/2022 Mich Martino MD [facility] INTERVENTIONL RAD ??? PRO APPLY OF HIP CASTS, TWO LEGS 08/15/2010 CAST APPLICATION, HIP SPICA, BOTH LEGS performed by BARRERA OLIVER at [facility] MAIN OR ? ? PRO I&D, POST SPINE, LUMB/SACR/LUMBOSAC N/A 05/20/2014 @I & D, OPEN, DEEP ABSCESS, LUMBAR, SACRAL, LUMBOSACRAL performed by Freddy Isbell MD at [facility] MAIN OR ? ? PRO I&D, POST SPINE, LUMB/SACR/LUMBOSAC N/A 05/26/2014 @I & D, OPEN, DEEP ABSCESS, LUMBAR, SACRAL, LUMBOSACRAL performed by Freddy Isbell MD at [facility] MAIN OR ??? PRO IMPACT TOOTH REMOV COMP BONY N/A 06/14/2018 SURGICAL EXTRACTIONS, REMOVAL OF IMPACTED TOOTH, COMPLETELY BONY (WRVU 1.93) performed by Keith Cotton MD at [facility] OSC ??? PRO OSTEOTOMY FEMUR SHAFT/SUPRACONDY 08/15/2010 ??OSTEOTOMY, FEMUR SHAFT OR SUPRACONDYLAR W/O FIXATION performed by BARRERA OLIVER at [facility] MAIN OR ??? PRO RECONSTRUC HIP SOCKET, RESEC FEM HEAD 08/15/2010 ??ACETABULOPLASTY (GIRDLESTONE), RESECTION FEMORAL HEAD, BILATERAL performed by BARRERA OLIVER [facility] OR ??? PRO REMOVAL DEEP IMPLANT 08/15/2010 REMOVAL IMPLANT, DEEP, BRUNO performed by BARRERA OLIVER at [facility] MAIN OR ??? PRO REMOVAL ERUPTED TOOTH WITH ELEVATION OF MUCOPERIOSTEAL FLAP N/A 06/14/2018 SURGICAL EXTRACTIONS REQUIRING ELEVATION OF MUCOPERIOSTEAL FLAP AND REMOVAL OF BONE OR SECTION OF TOOTH (WRVU 1.09) performed by Keith Cotton MD at [facility] OSC ??? PRO REMOVE INFUSN DEVICE/PUMP N/A 05/11/2014 REMOVAL OF SPINE INFUSION PUMP performed by Jamaal Samuel MD at [facility] OR ??? PRO REMOVE SPINAL CANAL CATHETER N/A 05/11/2014 REMOVAL OF INTRATHECAL OR EPIDURAL CATHETER performed by Jamaal Samuel MD at [facility] OR ??? PRO REPR, DURAL/CSF LEAK, NOT REQ LAMINECTOMY N/A 05/20/2014 @REPAIR DURAL\CSF LEAK,NOT REQUIRING LAMINECTOMY performed by Freddy Isbell MD at [facility] OR Social History and Habits: Social History [...] (TeleHealth) [place] [address] Lilli Joy APRN [facility] [place] [address] 12/03/2023 12:30 PM EDT Office [place] [address] Hollie Ambriz MD [facility] [place] [address] 12/03/2023 2:30 PM EDT Appointment [place] [address] Andrade Melvin MD [facility] DR DIAGNOSTIC RADIOLOGY [place], [place] [phone] documented as of this encounter Procedures Procedure [...] EDT) Anaerobic Culture No anaerobic organisms isolated [facility] Abscess STRUCTURE OF BACK OF TRUNK / Unknown 09/26/2022 12:49 PM EDT 09/26/2022 2:05 PM EDT Narrative Resulting Agency Comment Spec In Lab Jamar Dasilva MD MICROBIOLOGY - GE NERAL ORDERABLES Performing Organization Address [facility]/ZIP Co de Phone Number [facility] [place] [address] * Abscess/Wound Aspirate Culture (09/26/2022 12:49 PM EDT) Abscess/Wound Aspirate Culture No growth [facility] Gram Stain Few Neutrophils seen No microorganisms seen. [facility] Abscess STRUCTURE OF BACK OF TRUNK / Unknown 09/26/2022 12:49 PM EDT 09/26/2022 2:05 PM EDT Narrative Resulting Agency Comment Spec In Lab Jamar Dasilva MD MICROBIOLOGY - GE NERAL ORDERABLES [facility] [place] [address] * Calcofluor White Stain (09/26/2022 12:49 PM EDT) Calcofluor Stain Calcofluor White Preparation: Negative [facility] Abscess 09/26/2022 12:4 9 PM EDT 09/26/2022 2:05 PM EDT Narrative Resulting Agency Comment Spec In Lab Jamar Dasilva MD MICROBIOLOGY - GE NERAL ORDERABLES Performing Organization Address [facility] Co de Phone Number [facility] [place] [address] * Fungus culture (09/26/2022 12:49 PM EDT) Fungus Culture No Fungus isolated [facility] Abscess 09/26/2022 12:4 9 PM EDT 09/26/2022 2:05 PM EDT Narrative Resulting Agency Comment Spec In Lab Jamar Dasilva MD MICROBIOLOGY - GE NERAL ORDERABLES Performing Organization Address [facility] [place] [address] * AFB culture Back (09/26/2022 12:49 PM EDT) Acid Fast Bacilli Culture No Acid Fast Bacilli isolated [facility] Acid Fast Stain No Acid Fast Bacilli seen [facility] Back 09/26/2022 12:4 9 PM EDT 09/26/2022 2:05 PM EDT Narrative Resulting Agency Comment Spec In Lab Jamar Dasilva MD MICROBIOLOGY - GE NERAL ORDERABLES Performing Organization Address [facility] de Phone Number [facility] [place] [address] documented in this encounter Visit Diagnoses Diagnosis [...] mLs documented in this encounter Care Teams Business Unit Leader Relationship Specialty Start Date End Date Lorna Bal APRN [address] [place] [address] PCP - General Family Medicine 05/27/18 documented as of this encounter
--- OUTSIDE RECORDS SUMMARY | 2023-11-16 16:56 | XMS_ITS | Encounter Summary ---
Author Organization [facility] Address [facility] [place] [address] Care Team Providers Care Prosthetic Aides Teacher Name Role Phone Lorna Bal APRN Primary Care Provider [phone] [phone] Reason for Visit * Reason Comments Follow-up Encounter Details Date Type Department Care Team (Late st Contact Info) Description 03/26/2023 10:00 AM EST Office [place] [address] George Tipton MD [facility] CRITICAL [place] [address] 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 Dx) Social History Tobacco Use Types Packs/Day Years Used Date Smoking Tobacco: Never Smokeless Tobacco: Never Tobacco Cessation:Counseling Given: Not Answered Comments:NO SMOKERS IN THE HOME Alcohol Use Standard Drinks/Week Comments No 0 (1 standard drink = 0.6 oz pur e alcohol) [facility] Inpatient Questions Answer Date Recorded Does [...] remained on bactrim. Followed up with in [place]. MRI was not possible sec. To hardware. CRP/ESR was trending upwards. NSG referred her to [facility] for surgery. The patient went to [...] Tipton MD Infectious Diseases Fellow- [id number] Pager: [phone] 03/25/2023 4:00 PM Plan discussed with Dr. Gabo Trevino This note was created using [employer]) voice recognition software. I have seen the [...] 1-2 weeks from initiation. Gabo Trevino MD [facility] Infectious Disease * Olinda Barahona RN - [...] 1-2 weeks from initiation. Gabo Trevino MD [facility] Infectious Disease documented in this encounter Plan of Treatment Upcoming Encounters Date Type Department Care Team (Late st Contact Info) Description 11/19/2023 2:30 PM EDT TH Visit (TeleHealth) [place] [phone] [address] [facility] [place] [address] 12/03/2023 12:30 PM EDT Office [place] [address] Hollie Ambriz MD [facility] DR [place] [address] 12/03/2023 2:30 PM EDT Appointment Radiology at [place] [phone] Andrade Melvin MD [facility] DR DIAGNOST[place] [address] Scheduled Orders Name Type Priority Associated Diagnoses [...] Lab Gabo Trevino MD CHEMISTRY ORDERABLE S [facility] [place] [id number] * (ABNORMAL) Comprehensive metabolic panel (non-fasting) (04/16/2023 4:20 PM EST) Glucose Lvl 79 65 - 199 mg/dL [facility] Comment:Diabetes: >=200 mg/d L plus symptoms BUN 10 8 - 18 mg/dL [facility] Creatinine 0.49(L) 0.70 - 1.20 mg/dL [facility] Sodium 137 135 - 145 mmol/L [facility] Potassium 3.8 3.5 - 5.0 mmol/L [facility] Comment: Please note: ??Patients with WBC >100,000 may have falsely elevated Potassium levels. ??For accurate Potassium quantification in these patients send serum separator tube (gold top) for subsequent determinations. ??Contact the Clinical Chemistry Laboratory if there are any questions. Chloride 99 98 - 107 mmol/L [facility] CO2 27 22 - 31 mmol/L [facility] Anion Gap 11 5 - 15 mmol/L [facility] Calcium 9.4 8.5 - 10.5 mg/dL [facility] Total Protein 7.9 6.1 - 8.0 g/dL [facility] Albumin 4.2 3.2 - 5.2 g/dL [facility] AST 15 0 - 30 unit/L [facility] ALT 40(H) 0 - 30 unit/L [facility] Alk Phos 320(H) 35 - 105 unit/L [facility] Total Bilirubin <0.2(L) 0.2 - 1.3 mg/dL [facility] Estimated GFR 131 >=60 mL/min/1. 73 m?? [facility] Comment: This patient's estimated [...] Lab Gabo Trevino MD CHEMISTRY ORDERABLE S [facility] [place] [address] * US Abdomen Limited Hepatology Protocol (03/27/2023 [...] PM Electronically signed by: Curt Dozier MD, [facility] ([phone]), at 03/27/2023 3:31 PM Thank you for letting us participate in the care of this patient. If you are a health care provider and have any questions regarding this report, please contact the number above. For patients who have questions, please contact the health child care supervisor that requested your imaging first. ? Curt Dozier, Staff Physician Electronically Signed Final Report ?? 03/27/2023 03:36 pm Narrative 03/27/2023 3:37 PM EST Abdominal ? (Signed Final 03/27/2023 03:36 pm) PATIENT INFO: ID #: ? [id number] ?: ??[birth year] (27 yrs)(F) Name: ? TANA SHELTON ?Visit Date: 03/27/2023 03:21 pm PERFORMED BY: Attending: ?Jaocby GONZALES MD, Curt Langston Performed By: ? Shelby Gardner RDMS Referred By: ?GABO TREVINO Location: ? [place] SERVICE(S) PROVIDED: [facility] - Hepatology Protocol - Abdominal ?43806 Limited Survey Single Organ or Quadrant - [id number] INDICATIONS: Transaminitis ------ LIVER: ------ Right Lobe [...] 03/27/2023 03:36 pm) PATIENT INFO: ID #: [id number] : [birth year] (27 yrs)(F) Name: TANA SHELTON Visit Date: 03/27/2023 03:21 pm PERFORMED BY: Attending: Jacoby GONZALES MD, Arthur L. Performed By: Shelby Gardner RDMS Referred By: GABO TREVINO Location: [place] SERVICE(S) PROVIDED: [facility] - Hepatology Protocol - Abdominal 27852 Limited Survey Single Organ or Quadrant - [id number] INDICATIONS: Transaminitis ------ LIVER: ------ Right Lobe [...] questions, please contact the health child care supervisor that requested your imaging first. Curt Dozier, Staff Physician Electronically Signed Final Report 03/27/2023 03:36 pm Gabo Trevino MD IMG US GEN ORDERABL ES * Scan, Peripheral Blood (03/26/2023 11:06 AM EST) Plat Estimate Normal [facility] RBC Morphology Abnormal [facility] Hypochromia Slight [facility] Stomatocytes 1-5 /HPF [facility] Stippled RBCs Present >1/HPF [facility] Blood 03/26/2023 11:0 6 AM EST 03/26/2023 11:21 AM EST Narrative Resulting Agency Comment Spec In Lab George Tipton MD HEMATOLOGY ORDERABLE S [facility] [place] [id number] * Differential, Automated (03/26/2023 11:06 AM EST) Pathologist [facility] Neutrophils % 62.0 % [facility] Neutr Abs (ANC) 3.69 1.70 - 6.10 x10(3)/[facility] Lymphocytes % 27.7 % [facility] Lymphocytes Abs 1.6 0.9 - 3.2 x10(3)/[facility] Monocytes % 7.7 % [facility] Monocyte Abs 0.5 0.3 - 0.9 x10(3)/[facility] Eosinophils % 1.8 % [facility] Eosinophils Abs 0.1 0.0 - 0.4 x10(3)/[facility] Basophils % 0.5 % [facility] Basophils Abs 0.0 0.0 - 0.1 x10(3)/[facility] Immature Gran % 0.30 % [facility] Comment: Immature granulocytes(IG's)percentage and absolute count will include metamyelocytes, myelocytes, and promyelocytes. Blood smears from CBCs yielding IG's will be scanned manually for concordance. If this scan disagrees with the automated IG or if promyelocytes are noted, a manual differential will be performed. Debora Gran Abs 0.02 0.00 - 0.04 x10(3)/[facility] Blood 03/26/2023 11:0 6 AM EST 03/26/2023 11:21 AM EST Narrative Resulting Agency Comment Spec In Lab George Tipton MD HEMATOLOGY ORDERABLE S [facility] [place] [address] * (ABNORMAL) Hemogram (03/26/2023 11:06 AM EST) WBC 6.0 4.0 - 9.5 x10(3)/[facility] RBC 3.07(L) 4.00 - 5.21 x10(6)/[facility] Hemoglobin 8.9(L) 11.7 - 15.5 g/dL [facility] Hematocrit 27.5(L) 35.7 - 45.8 % [facility] MCV 89.6 82.6 - 94.4 fL [facility] MCH 29.0 27.1 - 32.0 pg [facility] MCHC 32.4 31.7 - 35.0 g/dL [facility] Platelets 355 145 - 357 x10(3)/[facility] RDWSD 49.0(H) 37.0 - 46.0 [facility] RDWCV 15.0(H) 11.5 - 14.1 % [facility] MPV 9.1 7.6 - 12.9 fL [facility] nRBC % Auto 0.0 % [facility] nRBC Abs Auto 0.000 0.000 - 0.000 x10(3)/[facility] Blood 03/26/2023 11:0 6 AM EST 03/26/2023 11:21 AM EST Narrative Resulting Agency Comment Spec In Lab George Tipton MD HEMATOLOGY ORDERABLE S [facility] [place] [address] * (ABNORMAL) Comprehensive metabolic panel (non-fasting) (03/26/2023 11:06 AM EST) Glucose Lvl 81 65 - 199 mg/dL [facility] Comment:Diabetes: >=200 mg/d L plus symptoms BUN 19(H) 8 - 18 mg/dL [facility] Creatinine 0.27(L) 0.70 - 1.20 mg/dL [facility] Sodium 140 135 - 145 mmol/L [facility] Potassium 4.3 3.5 - 5.0 mmol/L [facility] Comment: Please note: ??Patients with WBC >100,000 may have falsely elevated Potassium levels. ??For accurate Potassium quantification in these patients send serum separator tube (gold top) for subsequent determinations. ??Contact the Clinical Chemistry Laboratory if there are any questions. Chloride 104 98 - 107 mmol/L [facility] CO2 23 22 - 31 mmol/L [facility] Anion Gap 13 5 - 15 mmol/L [facility] Calcium 9.8 8.5 - 10.5 mg/dL [facility] Total Protein 7.7 6.1 - 8.0 g/dL [facility] Albumin 4.3 3.2 - 5.2 g/dL [facility] AST 45(H) 0 - 30 unit/L [facility] ALT 101(H) 0 - 30 unit/L [facility] Alk Phos 378(H) 35 - 105 unit/L [facility] Total Bilirubin <0.2(L) 0.2 - 1.3 mg/dL [facility] Estimated GFR 151 >=60 mL/min/1. 73 m?? [facility] Comment: This patient's estimated [...] MD CHEMISTRY ORDERABLE S Performing Organization Address [facility] Co de Phone Number [facility] [place] [address] * (ABNORMAL) Sedimentation rate (03/26/2023 11:06 AM EST) Sed Rate 69(H) 2 - 37 mm/hr [facility] Comment: Effective April 06, 2019 new capillary photometric technology has resulted in a change in reference ranges. It is recommended that each ESR result be reviewed with its own age appropriate reference range. Blood 03/26/2023 11:0 6 AM EST 03/26/2023 11:21 AM EST Narrative Resulting Agency Comment Spec In Lab Gabo Trevino MD HEMATOLOGY ORDERABL ES Performing Organization Address [facility] Co de Phone Number [facility] [place] [address] * (ABNORMAL) CRP, acute inflammation (03/26/2023 11:06 AM EST) CRP 86.3(H) <=4.9 mg/L [facility] Blood 03/26/2023 11:0 6 AM EST 03/26/2023 11:21 AM EST Narrative Resulting Agency Comment Spec In Lab Gabo Trevino MD CHEMISTRY ORDERABLE S [facility] [place] [address] documented in this encounter Visit Diagnoses Diagnosis Spinal abscess- Primary Acute osteomyelitis, other specified site Spinal abscess Acute osteomyelitis, other specified site documented in this encounter Care Teams Prosthetic Aides Teacher Relationship Specialty Start Date End Date Lorna Bal APRN [address] [place] [address] PCP - General Family Medicine 05/27/18 documented as of this encounter
--- OUTSIDE RECORDS SUMMARY | 2023-11-16 16:56 | XMS_ITS | Encounter Summary ---
Author Organization [facility] [place] [address] Care Team Providers Care Firm Administrator Name Role Phone Lorna Bal APRN Primary Care Provider +1 [phone] Reason for Referral * Diagnostic Test (Routine) - Closed Specialty Diagnoses / Procedures Referred By Contac t Referred To Contact Radiology Diagnoses Spinal abscess Procedures IR All Drainage Procedures IR All Biopsy Procedures Jamar Dasilva MD [facility] [place] [address] [place] [address] Referral ID Status Reason Start Date Expiration Date V isits Requested Visits Authorized [id number] Closed Specialty Service Requested 09/26/2022 03/28/2024 1 1 Encounter Details Date Type Department Care Team (Late st Contact Info) Description 09/26/2022 Orders [place] [address] Jamar Dasilva MD [facility] [place] [address] Spinal abscess Social History Tobacco [...] EDT TH Visit (TeleHealth) Infectious Disease at [place] [phone] Lilli Joy APRN [facility] [place] [address] 12/03/2023 12:30 PM EDT Office Visit Infectious Disease at [place] [phone] Hollie Ambriz MD [facility] [place] [address] 12/03/2023 2:30 PM EDT Appointment Radiology at [place] [phone] Andrade Melvin MD [facility] [place] [address] documented as of this encounter Results * [...] Fast Bacilli seen [facility] Back 09/26/2022 12:4 9 PM EDT 09/26/2022 2:05 PM EDT Narrative Resulting Agency Comment Spec In Lab Jamar Dasilva MD [facility]OLOGY - [facility] ORDERABLES Performing Organization Address City/State/[facility] Co de Phone Number [facility] [place] [address] documented in this encounter Visit Diagnoses Diagnosis Spinal abscess Acute osteomyelitis, other specified site Spinal abscess Acute osteomyelitis, other specified site documented in this encounter Care Teams Firm Administrator Relationship Specialty Start Date End Date Lorna Bal APRN [address] [place] [address] PCP - General Family Medicine 05/27/18 documented as of this encounter
--- OUTSIDE RECORDS SUMMARY | 2023-11-16 16:56 | XMS_ITS | Encounter Summary ---
Author Organization [facility] [place] [address] Care Team Providers Care Wind Turbine Blade Repair Technician Name Role Phone Lorna Bal APRN Primary Care Provider +1 [phone] Reason for Referral * Diagnostic Test (Routine) [...] IR Drain Check/Change/Remove Jamaal Jenkins, [facility] [place] [address] [facility] [place] [address] Referral ID Status Reason Start Date Expiration Date Visits Requested Visits Authorized [id number] Pending Review Specialty Service Requested 08/25/2022 02/26/2024 1 1 * Diagnostic Test (Routine) - New Request Specialty Diagnoses / Procedures Referred By Contac t Referred To Contact Radiology Diagnoses Spinal abscess Procedures IR Drain Check/Change/Remove Hank Nunez PA [facility] [place] [address] [place] [address] Referral ID Status Reason Start Date Expiration Date Visits Requested Visits Authorized [id number] New Request Specialty Service Requested 08/21/2022 02/21/2024 1 1 Reason for Visit * Diagnostic Test (Routine) - New Request Specialty Diagnoses / Procedures Referred By Contac t Referred To Contact Radiology Diagnoses Spinal abscess Procedures IR Drain Check/Change/Remove Hank Nunez PA [facility] [place] [address] [place] [address] Referral ID Status Reason Start Date Expiration Date Visits Requested Visits Authorized [id number] New Request Specialty Service Requested 08/21/2022 02/21/2024 1 1 Encounter Details Date Type Department Care Team (Latest Contact Info) Description 08/25/2022 12:57 PM EDT - 08/25/2022 11:59 PM EDT Hospital En[place] [address] Piter Self MD [facility] [place] [address] Spinal abscess; Abscess; Contracture of left elbow; [...] is during regular office hours, please call [phone]. If it is after regular office hours, or on weekends or holidays, please call [phone] and ask to speak to the Social Psychologist device sales consultant for Interventional Radiology. XX You have received [...] : 1995 AGE: 27 y.o. Address: [address] [place] [address] Phone: [phone] (home) Mobile: Telephone Information: Referring Provider: Hank Nunez REASON FOR VISIT: Order Questions Answers Where will study be performed? [facility] Radiology [120] Reason for exam and [...] [Transparent Dressings] Itching and Dermatitis Please use [id number] ??? Penicillins Pertinent PMH: Patient Active Problem [...] dislodged and replaced on 07/24. Additional 8 Palestinian drain placed into adjacent L2/L3 collection at [...] All Drainage Procedures 06/25/2022 Mich Martino MD [facility] INTERVENTIONL RAD ??? IR ALL DRAINAGE PROCEDURES 07/04/2022 IR All Drainage Procedures 07/04/2022 Mich Martino MD [facility] INTERVENTIONL RAD ??? IR ALL DRAINAGE PROCEDURES 07/24/2022 IR All Drainage Procedures 07/24/2022 Anurag Kumar MD [facility] INTERVENTIONL RAD ??? IR DRAIN CHECK/CHANGE/REMOVE 07/01/2022 IR Drain Check/Change/Remove 07/01/2022 Jamaal Jenkins, DO [facility] INTERVENTIONL RAD ??? PRO APPLY OF HIP CASTS, TWO LEGS 08/15/2010 CAST APPLICATION, HIP SPICA, BOTH LEGS performed by BARRERA OLIVER at [facility] OR ? ? PRO I&D, POST SPINE, LUMB/SACR/LUMBOSAC N/A 05/20/2014 @I & D, OPEN, DEEP ABSCESS, LUMBAR, SACRAL, LUMBOSACRAL performed by Freddy Isbell MD at [facility] OR ? ? PRO I&D, POST SPINE, LUMB/SACR/LUMBOSAC N/A 05/26/2014 @I & D, OPEN, DEEP ABSCESS, LUMBAR, SACRAL, LUMBOSACRAL performed by Freddy Isbell MD at [facility] OR ??? PRO IMPACT TOOTH REMOV COMP BONY N/A 06/14/2018 SURGICAL EXTRACTIONS, REMOVAL OF IMPACTED TOOTH, COMPLETELY BONY (WRVU 1.93) performed by Keith Cotton MD at [facility] OSC ??? PRO OSTEOTOMY FEMUR SHAFT/SUPRACONDY 08/15/2010 ??OSTEOTOMY, FEMUR SHAFT OR SUPRACONDYLAR W/O FIXATION performed by BARRERA OLIVER at [facility] MAIN OR ??? PRO RECONSTRUC HIP SOCKET, RESEC FEM HEAD 08/15/2010 ??ACETABULOPLASTY (GIRDLESTONE), RESECTION FEMORAL HEAD, BILATERAL performed by BARRERA OLIVER [facility] MAIN OR ??? PRO REMOVAL DEEP IMPLANT 08/15/2010 REMOVAL IMPLANT, DEEP, BRUNO performed by BARRERA OLIVER at [facility] MAIN OR ??? PRO REMOVAL ERUPTED TOOTH WITH ELEVATION OF MUCOPERIOSTEAL FLAP N/A 06/14/2018 SURGICAL EXTRACTIONS REQUIRING ELEVATION OF MUCOPERIOSTEAL FLAP AND REMOVAL OF BONE OR SECTION OF TOOTH (WRVU 1.09) performed by Keith Cotton MD at [facility] OSC ??? PRO REMOVE INFUSN DEVICE/PUMP N/A 05/11/2014 REMOVAL OF SPINE INFUSION PUMP performed by Jamaal Samuel MD at [facility] OR ??? PRO REMOVE SPINAL CANAL CATHETER N/A 05/11/2014 REMOVAL OF INTRATHECAL OR EPIDURAL CATHETER performed by Jamaal Samuel MD at [facility] OR ??? PRO REPR, DURAL/CSF LEAK, NOT REQ LAMINECTOMY N/A 05/20/2014 @REPAIR DURAL\CSF LEAK,NOT REQUIRING LAMINECTOMY performed by Freddy Isbell MD at [facility] OR Medications: Current Outpatient Medications [...] EDT TH Visit (TeleHealth) Infectious Disease at [place] [phone] Lilli Joy APRN [facility] [place] [address] 12/03/2023 12:30 PM EDT Office [place] [address] Hollie Ambriz MD [facility] [place] [address] 12/03/2023 2:30 PM EDT Appointment Radiology at [place] [phone] Andrade Melvin MD [facility] [place] [address] documented as of this encounter Procedures Procedure [...] the entire procedure. ?? Jamaal Jenkins DO [facility] ORDERABLES * IR Drain Check/Change/Remove (08/25/2022 [...] dislodged and replaced on 07/24. Additional 8 Palestinian drain placed into adjacent L2/L3 collection at [...] throughout. ?? More Caudal Lumbar Drainage Catheter: Oxygen Therapy Teacher fluoroscopic images were obtained. ??Contrast was injected through the catheter and repeat fluoroscopic images were obtained. The drainage catheter was left in place. ??A sterile dressing was applied. ?? More Cranial Lumbar Drainage Catheter: Oxygen Therapy Teacher fluoroscopic images were obtained. ??Contrast was injected [...] mLs documented in this encounter Care Teams Wind Turbine Blade Repair Technician Relationship Specialty Start Date End Date Lorna Bal APRN [address] [place] [address] PCP - General Family Medicine 05/27/18 documented as of this encounter
--- OUTSIDE RECORDS SUMMARY | 2023-11-16 16:56 | XMS_ITS | Encounter Summary ---
Author Organization [facility] [place] [address] Care Team Providers Care Director Advertising Name Role Phone Lorna Bal APRN Primary Care Provider +1 [phone] Encounter Details Date Type Department Care Team (Late st Contact Info) Description 09/03/2022 Notes Only Infectious Disease at [facility] [place] [phone] Mesha Mckeon, RN Social History Tobacco Use [...] RN - 09/03/2022 11:59 PM EDT This editorial writer received called from patient's mom about concerns about her daughter's drains. She reported that they have stopped draining and was wondering how long we were keeping it in. I instructed her to call IR for a drain check. Mom verbalized understanding. She also stated that she took her to [place] for a second opinion. [place] doctor [place] was concerned about pt and wanted a call back as well. This editorial writer sent inbasket and routed secretaries notes from the Doctor in [place] to Shawn Woodard. Mom is very concerned about her daughters infection. Her end date is on 09/04. documented in this encounter Plan of Treatment Upcoming Encounters Date Type Department Care Team (Late st Contact Info) Description 11/19/2023 2:30 PM EDT TH Visit (TeleHealth) Infectious Disease at [place] [phone] Lilli Joy APRN [facility] [place] [address] 12/03/2023 12:30 PM EDT Office Visit Infectious Disease at [place] [phone] Hollie Ambriz MD [facility] [place] [address] 12/03/2023 2:30 PM EDT [place] [address] Andrade Melvin MD [facility] [place] [address] documented as of this encounter Visit Diagnoses Not on filedocumented in this encounter Care Teams Director Advertising Relationship Specialty Start Date End Date Lorna Bal APRN [address] [place] [address] PCP - General Family Medicine 05/27/18 documented as of this encounter
--- OUTSIDE RECORDS SUMMARY | 2023-11-16 16:56 | XMS_ITS | Encounter Summary ---
Author Organization [facility] [address] Care Team Providers Care Trustee Of Estate Name Role Phone Lorna Bal APRN Primary Care Provider [phone] [phone] Reason for Referral * Diagnostic Test (Routine) - New Request Specialty Diagnoses / Procedures Referred By Karlo t Referred To Contact Radiology Diagnoses Spinal abscess Procedures IR Drain Check/Change/Remove Hank Nunez PA [facility] [place] [address] [place] [address] Referral ID Status Reason Start Date Expiration Date Visits Requested Visits Authorized [id number] New Request Specialty Service Requested 08/21/2022 02/21/2024 1 1 Encounter Details Date Type Department Care Team (Late st Contact Info) Description 08/21/2022 Orders [place] [address] Hank Nunez PA [facility] [place] [address] Spinal abscess Social History Tobacco Use [...] EDT TH Visit (TeleHealth) [place] [address] Lilli Joy APRN [facility] [place] [address] 12/03/2023 12:30 PM EDT Office Visit Infectious Disease at [place] [phone] Hollie Ambriz MD [facility] [place] [address] 12/03/2023 2:30 PM EDT Appointment Radiology at [place] [phone] Andrade Melvin MD [facility] [place] [address] documented as of this encounter Results * [...] dislodged and replaced on 07/24. Additional 8 Iranian drain placed into adjacent L2/L3 collection at [...] throughout. ?? More Caudal Lumbar Drainage Catheter: Csm Consultant fluoroscopic images were obtained. ??Contrast was injected through the catheter and repeat fluoroscopic images were obtained. The drainage catheter was left in place. ??A sterile dressing was applied. ?? More Cranial Lumbar Drainage Catheter: Csm Consultant fluoroscopic images were obtained. ??Contrast was injected [...] present throughout the procedure. Piter Self MD [facility] IR ORDERABLES documented in this encounter Visit [...] sequela documented in this encounter Care Teams Trustee Of Estate Relationship Specialty Start Date End Date Lorna Bal APRN [address] [place] [address] PCP - General Family Medicine 05/27/18 documented as of this encounter
--- OUTSIDE RECORDS SUMMARY | 2023-11-16 16:56 | XMS_ITS | Encounter Summary ---
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 [place] [address] Referral ID Status Reason Start Date Expiration Date V isits Requested Visits Authorized [id number] Closed Specialty Service Requested 12/25/2022 06/24/2024 1 1 Encounter Details Date Type Department Care Team (Latest Contact Info) Description 12/31/2022 10:50 AM EDT - 12/31/2022 11:59 PM EDT Hospital [place] [address] Lorna Bal APRN [address] [place], [place] [id number] Cerebral palsy, unspecified type; Congenital deformity of [...] Visit (TeleHealth) Infectious Disease at [place] [phone] Lilli Joy APRN [facility] [place] [address] 12/03/2023 12:30 PM EDT Office [place] [address] Hollie Ambriz MD [facility] [place] [address] 12/03/2023 2:30 PM EDT Appointment Radiology at [place] [phone] Andrade Melvin MD [facility] [place] [address] documented as of this encounter Procedures Procedure [...] who have questions please contact the health pet caretaker that requested your imaging first. ? Narrative 12/31/2022 4:00 PM EDT EXAMINATION: CT [...] patients who have questions please contactthe health pet caretaker that requested your imaging first. Lorna Bal APRN [facility] ORDERABLES * CT Cervical Spine wo [...] who have questions please contact the health pet caretaker that requested your imaging first. ? Narrative 12/31/2022 4:00 PM EDT EXAMINATION: CT [...] patients who have questions please contactthe health pet caretaker that requested your imaging first. 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
--- OUTSIDE RECORDS SUMMARY | 2023-11-16 16:56 | XMS_ITS | Encounter Summary ---
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 I had an extensive conversation with [facility] provider regarding patient's clinical course at and [...] for drain check and spine surgery at [facility] for possible surgical Options. They would like to continue receiving ID care at [facility] [place] [place] at least until surgical options are explored at outside institution. Plan Based on patient clinical presentation, review of data and chart my plan is as follows: -Continue doxycycline 100 mg PO BID -Avoid sunlight exposure while on doxyxycline -Pending evaluation by surgery at [facility], at that point they will decide if they continue care at or will see ID at other institution -Alarm signs were provided, come to the ED, call the office or 911 if initial symptoms return, fever, chills, associated with nausea, vomiting profuse diarrhea, confusion decrease urinary volumes Case discussed with Dr. Jamar Dasilva Follow up: As needed Sergey Doan MD Infectious Disease Fellow [facility] 09/14/2022 Chronic suppression Behaving as infection * [...] EDT TH Visit (TeleHealth) [place] [address] Lilli Joy APRN [facility] [place] [address] 12/03/2023 12:30 PM EDT Office Visit Infectious Disease at [place] [phone] Hollie Ambriz MD [facility] [place] [address] 12/03/2023 2:30 PM ED[place] [phone] Andrade Melvin MD [facility] DIAGNOSTIC [place] [address] documented as of this encounter Visit Diagnoses Diagnosis Spinal abscess Acute osteomyelitis, other specified site half-way 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 Encounter for long-term (current) use of antibiotics Soft tissue abscess Cellulitis and abscess of other specified site documented in this encounter Care Teams Data Base Administrator Relationship Specialty Start Date End Date Lorna Bal APRN [address] [place] [address] PCP - General Family Medicine 05/27/18 documented as of this encounter
--- OUTSIDE RECORDS SUMMARY | 2023-11-16 16:56 | XMS_ITS | Encounter Summary ---
Author Organization [facility] [place] [address] Care Team Providers Care Supply Chain Analyst Name Role Phone Lorna Bal APRN Primary Care Provider [phone] [phone] Encounter Details Date Type Department Care Team (Late st Contact Info) Description 09/03/2022 Telephone [place] [phone] Halima García Social History Tobacco Use Types Packs/Day Years Used Date Smoking Tobacco: Never Smokeless Tobacco: Never Comments:NO SMOKERS IN THE H OME Alcohol Use Standard Drinks/Week Comments No 0 (1 standard drink = 0.6 oz pur e alcohol) [facility] Inpatient Questions Answer Date Recorded Does [...] return call to Dr. Ila Hadley from [facility]. Requesting a call back to discuss pt dx, 2nd option and how she can best assist with the pt's care. Dr. Hadley [phone]. Thanks Halima documented in this encounter Plan of Treatment Upcoming Encounters Date Type Department Care Team (Late st Contact Info) Description 11/19/2023 2:30 PM EDT TH Visit (TeleHealth) Infectious Disease at [address] Lilli Joy APRN [facility] [address] [place] [address] 12/03/2023 12:30 PM EDT Office Visit [place] [address] Hollie Ambriz MD [facility] INFECTIOUS [place] [address] 12/03/2023 2:30 PM EDT Appointment Radiology at [place] [phone] Andrade Melvin MD [facility] DIAGNOSTIC [place] [address] documented as of this encounter Visit Diagnoses Not on filedocumented in this encounter Care Teams Supply Chain Analyst Relationship Specialty Start Date End Date Lorna Bal APRN [address] [place] [address] PCP - General Family Medicine 05/27/18 documented as of this encounter
--- OUTSIDE RECORDS SUMMARY | 2023-11-16 16:56 | XMS_ITS | Encounter Summary ---
[place] [address] Care Team Providers Care Outlet Manager Name Role Phone Lorna Bal APRN Primary Care Provider [phone] [phone] Encounter Details Date Type Department Care Team [...] TH Visit (TeleHealth) Infectious Disease at [facility] [place] [address] Lilli Joy APRN [facility] [address] 12/03/2023 12:30 PM EDT Office Visit Infectious Disease at [place] [phone] Hollie Ambriz MD [facility] [place] [address] 12/03/2023 2:30 PM EDT [place]oint[place] [address] Andrade Melvin MD [facility] [place] [address] documented as of this encounter Visit Diagnoses Not on filedocumented in this encounter Care Teams Outlet Manager Relationship Specialty Start Date End Date Lorna Bal APRN [address] [place] [address] PCP - General Family Medicine 05/27/18 documented as of this encounter
--- OUTSIDE RECORDS SUMMARY | 2023-11-16 16:56 | XMS_ITS | Encounter Summary ---
Author Organization [facility] [place] [address] Care Team Providers Care Patients Transporter Name Role Phone Lorna Bal APRN Primary Care Provider +1 -[phone] Encounter Details Date Type Department Care Team (Late st Contact Info) Description 12/25/[address] [place] [phone] Sirisha Patino Social History Tobacco Use Types [...] EDT TH Visit (TeleHealth) [place] [address] Lilli Joy APRN [facility] [place] [address] 12/03/2023 12:30 PM EDT Office Visit Infectious Disease at [address]1000 Hollie Ambriz MD [facility] [place] [address] 12/03/2023 2:30 PM EDT Appointment Radiology at [place] [phone] Andrade Melvin MD [facility] [place] [address] documented as of this encounter Visit Diagnoses Not on filedocumented in this encounter Care Teams Patients Transporter Relationship Specialty Start Date End Date Lorna Bal APRN [address] [place] [address] PCP - General Family Medicine 05/27/18 documented as of this encounter
--- OUTSIDE RECORDS SUMMARY | 2023-11-16 16:56 | XMS_ITS | Encounter Summary ---
Author Organization [facility] [place] [address] Care Team Providers Care Medical Specialist Name Role Phone Lorna Bal APRN Primary Care Provider +1 -[phone] Encounter Details Date Type Department Care Team (Late st Contact Info) Description 09/05/2022 Telephone [place] [address] Valentina Stanton Social History Tobacco Use Types [...] Visit (TeleHealth) Infectious Disease at [place] [phone] Lilli Joy APRN [facility] [place] [address] 12/03/2023 12:30 PM EDT Office Visit Infectious Disease at [address]1000 Hollie Ambriz MD [facility] [place] [address] 12/03/2023 2:30 PM EDT Appointment Radiology at [place] [phone] Andrade Melvin MD [facility] DIAGNOSTIC [place] [address] documented as of this encounter Visit Diagnoses Not on filedocumented in this encounter Care Teams Medical Specialist Relationship Specialty Start Date End Date Lorna Bal APRN [address] [place] [address] PCP - General Family Medicine 05/27/18 documented as of this encounter
--- OUTSIDE RECORDS SUMMARY | 2023-11-16 16:56 | XMS_ITS | Encounter Summary ---
Author Organization [facility] [place] [address] Care Team Providers Care Pump House Operator Name Role Phone Lorna Bal APRN Primary Care Provider +1 -[phone] Reason for Referral * Diagnostic Test (Routine) [...] sequela Procedures IR Drain Check/Change/Remove Jamaal Jenkins, [facility] [place] [address] [facility] [place] [address] Referral ID Status Reason Start Date Expiration Date Visits Requested Visits Authorized [id number] Pending Review Specialty Service Requested 08/25/2022 02/26/2024 [...] sequela Procedures IR Drain Check/Change/Remove Jamaal Jenkins, [facility] [place] [address] [facility] [place] [address] Referral ID Status Reason Start Date Expiration Date Visits Requested Visits Authorized [id number] Pending Review Specialty Service Requested 08/25/2022 02/26/2024 1 1 Encounter Details Date Type Department Care Team (Latest Contact Info) Description 09/10/2022 10:49 AM EDT - 09/10/2022 11:59 PM EDT Hospital [place] [address] Jamaal Jenkins, [facility] [place] [address] Spinal abscess; Abscess; Contracture of [...] drink = 0.6 oz pur e alcohol) [facility] Inpatient Questions Answer Date Recorded [...] RN - 09/10/2022 12:55 PM EDT [facility] Vascular and Interventional Radiology Discharge Instructions For [...] is during regular office hours, please call [phone]. If it is after regular office hours, or on weekends or holidays, please call [phone] and ask to speak to the Event Representative apartment leasing consultant for Interventional Radiology. You may resume your [...] of : 1995 AGE: 27 y.o. Address: [address] [place] [address] Phone: [phone] (home) Mobile: Telephone Information: Referring Provider: Jamaal [...] Questions Answers Where will study be performed? [facility] Radiology [120] Reason for exam and clinical history: Paraspinal abscesses status post drain palcement. Persistent collections. Drain repositioned 08/25. Routine 3-week drain check. Is the patient ? No Is the patient on anticoagulant / antiplatelet therapy ? No Allergies Allergen Reactions ??? Fluoxetine Other (See Comments) HIVES, HEART RACES ??? Tegaderm [Transparent Dressings] Itching and Dermatitis Please use [id number] ??? Penicillins Pertinent PMH: Patient Active Problem [...] All Drainage Procedures 06/25/2022 Mich Martino MD [facility] INTERVENTIONL RAD ??? IR ALL DRAINAGE PROCEDURES 07/04/2022 IR All Drainage Procedures 07/04/2022 Mich Martino MD [facility] INTERVENTIONL RAD ??? IR ALL DRAINAGE PROCEDURES 07/24/2022 IR All Drainage Procedures 07/24/2022 Anurag Kumar MD [facility] INTERVENTIONL RAD ??? IR DRAIN CHECK/CHANGE/REMOVE 07/01/2022 IR Drain Check/Change/Remove 07/01/2022 Jamaal Jenkins, DO [facility] INTERVENTIONL RAD ??? IR DRAIN CHECK/CHANGE/REMOVE 08/11/2022 IR Drain Check/Change/Remove 08/11/2022 Ptier Self MD [facility] INTERVENTIONL RAD ??? IR DRAIN CHECK/CHANGE/REMOVE 08/25/2022 IR Drain Check/Change/Remove 08/25/2022 Jamaal Jenkins P, DO [facility] INTERVENTIONL RAD ??? PRO APPLY OF HIP CASTS, TWO LEGS 08/15/2010 CAST APPLICATION, HIP SPICA, BOTH LEGS performed by BARRERA OLIVER at [facility] MAIN OR ? ? PRO I&D, POST SPINE, LUMB/SACR/LUMBOSAC N/A 05/20/2014 @I & D, OPEN, DEEP ABSCESS, LUMBAR, SACRAL, LUMBOSACRAL performed by Freddy Isbell MD at [facility] MAIN OR ? ? PRO I&D, POST SPINE, LUMB/SACR/LUMBOSAC N/A 05/26/2014 @I & D, OPEN, DEEP ABSCESS, LUMBAR, SACRAL, LUMBOSACRAL performed by Freddy Isbell MD at [facility] MAIN OR ??? PRO IMPACT TOOTH REMOV COMP BONY N/A 06/14/2018 SURGICAL EXTRACTIONS, REMOVAL OF IMPACTED TOOTH, COMPLETELY BONY (WRVU 1.93) performed by Keith Cotton MD at [facility] OSC ??? PRO OSTEOTOMY FEMUR SHAFT/SUPRACONDY 08/15/2010 ??OSTEOTOMY, FEMUR SHAFT OR SUPRACONDYLAR W/O FIXATION performed by BARRERA OLIVER at [facility] OR ??? PRO RECONSTRUC HIP SOCKET, RESEC FEM HEAD 08/15/2010 ??ACETABULOPLASTY (GIRDLESTONE), RESECTION FEMORAL HEAD, BILATERAL performed by BARRERA OLIVER [facility] OR ??? PRO REMOVAL DEEP IMPLANT 08/15/2010 REMOVAL IMPLANT, DEEP, BRUNO performed by BARRERA OLIVER at [facility] MAIN OR ??? PRO REMOVAL ERUPTED TOOTH WITH ELEVATION OF MUCOPERIOSTEAL FLAP N/A 06/14/2018 SURGICAL EXTRACTIONS REQUIRING ELEVATION OF MUCOPERIOSTEAL FLAP AND REMOVAL OF BONE OR SECTION OF TOOTH (WRVU 1.09) performed by Keith Cotton MD at [facility] OSC ??? PRO REMOVE INFUSN DEVICE/PUMP N/A 05/11/2014 REMOVAL OF SPINE INFUSION PUMP performed by Jamaal Samuel MD at [facility] MAIN OR ??? PRO REMOVE SPINAL CANAL CATHETER N/A 05/11/2014 REMOVAL OF INTRATHECAL OR EPIDURAL CATHETER performed by Jamaal Samuel MD at [facility] MAIN OR ??? PRO REPR, DURAL/CSF LEAK, NOT REQ LAMINECTOMY N/A 05/20/2014 @REPAIR DURAL\CSF LEAK,NOT REQUIRING LAMINECTOMY performed by Freddy Isbell MD at [facility] MAIN OR Medications: Current Outpatient Medications on [...] EDT TH Visit (TeleHealth) [place] [address]1000 Lilli Joy APRN [facility] [place] [address] 12/03/2023 12:30 PM EDT Office [place] [address] [facility] [place] [address] 12/03/2023 2:30 PM EDT Appointment Radiology at [facility] [place] [address] Andrade Melvin MD [facility] [place] [address] documented as of this encounter Procedures Procedure [...] mLs documented in this encounter Care Teams Pump House Operator Relationship Specialty Start Date End Date Lorna Bal APRN [address] [place] [address] PCP - General Family Medicine 05/27/18 documented as of this encounter
--- OUTSIDE RECORDS SUMMARY | 2023-11-16 16:56 | XMS_ITS | Encounter Summary ---
[place] [address] Care Team Providers Care Caving Guide Name Role Phone Lorna Bal APRN Primary Care Provider +1 -[phone] Encounter Details Date Type Department Care Team (Latest Contact Info) Description 09/09/2022 Travel Social History Tobacco Use Types Packs/Day Years Used Date Smoking Tobacco: Never Smokeless Tobacco: Never Comments:NO SMOKERS IN THE H OME Alcohol Use Standard Drinks/Week Comments No 0 (1 standard drink = 0.6 oz pur e alcohol) [facility] Inpatient Questions Answer Date Recorded Does Anyone [...] EDT TH Visit (TeleHealth) Infectious Disease at [facility] [place] [address] Lilli Joy APRN [facility] [place] [address] 12/03/2023 12:30 PM EDT Office Visit Infectious Disease at [place] [phone] Hollie Ambriz MD [facility] [place] [address] 12/03/2023 2:30 PM EDT [place] [address] Andrade Melvin MD [facility] [place] [address] documented as of this encounter Visit Diagnoses Not on filedocumented in this encounter Care Teams Caving Guide Relationship Specialty Start Date End Date Lorna Bal APRN [address] [place] [address] PCP - General Family Medicine 05/27/18 documented as of this encounter
--- OUTSIDE RECORDS SUMMARY | 2023-11-16 16:57 | XMS_ITS | Encounter Summary ---
[place] [address] Care Team Providers Care Shag Truck Driver Name Role Phone Lorna Bal APRN Primary Care Provider +1 -[phone] Reason for Referral * Diagnostic Test (Routine) - New Request Specialty Diagnoses / Procedures Referred By Contac t Referred To Contact Radiology Diagnoses Spinal abscess Procedures IR Drain Check/Change/Remove Lucho Burciaga MD [facility] [place] [address] [place] [address] Referral ID Status Reason Start Date Expiration Date Visits Requested Visits Authorized [id number] New Request Specialty Service Requested 07/24/2022 01/25/2024 1 1 Reason for Visit * Diagnostic Test (Routine) - New Request Specialty Diagnoses / Procedures Referred By Contac t Referred To Contact Radiology Diagnoses Spinal abscess Procedures IR Drain Check/Change/Remove Lucho Burciaga MD [facility] [address] [address] Referral ID Status Reason Start Date Expiration Date Visits Requested Visits Authorized [id number] New Request Specialty Service Requested 07/24/2022 01/25/2024 1 1 Encounter Details Date Type Department Care Team (Latest Contact Info) Description 08/11/2022 11:53 AM EDT - 08/11/2022 11:59 PM EDT Hospital [place] [address] Anurag Kumar MD [facility] [place] [address] Spinal abscess Discharge Disposition: Home Social History Tobacco Use Types Packs/Day Years Used Date Smoking Tobacco: Never Smokeless Tobacco: Never Comments:NO SMOKERS IN THE H OME Alcohol Use Standard Drinks/Week Comments No 0 (1 standard drink = 0.6 oz pur e alcohol) PENDING SALE TO [facility] Inpatient Questions Answer Date Recorded [...] is during regular office hours, please call [phone]. If it is after regular office hours, or on weekends or holidays, please call [phone] and ask to speak to the [employer] sanitation worker for Interventional Radiology. XX You have received [...] of : 1995 AGE: 27 y.o. Address: [address] [place] [address] Phone: [phone] (home) Mobile: Telephone Information: Referring Provider: Lucho [...] [Transparent Dressings] Itching and Dermatitis Please use [id number] ??? Penicillins Pertinent PMH: Patient Active Problem [...] Questions Answers Where will study be performed? [facility] Radiology [120] Reason for exam and [...] MD [facility] INTERVENTIONL RAD ??? IR ALL DRAINAGE PROCEDURES 07/04/2022 IR All Drainage Procedures 07/04/2022 Mich Martino MD [facility] INTERVENTIONL RAD ??? IR ALL DRAINAGE PROCEDURES 07/24/2022 IR All Drainage Procedures 07/24/2022 Anurag Kumar MD [facility] INTERVENTIONL RAD ??? IR DRAIN CHECK/CHANGE/REMOVE 07/01/2022 IR Drain Check/Change/Remove 07/01/2022 Jamaal Jenkins, DO [facility] INTERVENTIONL RAD ??? PRO APPLY OF HIP CASTS, TWO LEGS 08/15/2010 CAST APPLICATION, HIP SPICA, BOTH LEGS performed by BARRERA OLIVER at [facility] MAIN OR ? ? PRO I&D, POST SPINE, LUMB/SACR/LUMBOSAC N/A 05/20/2014 @I & D, OPEN, DEEP ABSCESS, LUMBAR, SACRAL, LUMBOSACRAL performed by Freddy Isbell MD at [facility] MAIN OR ? ? PRO I&D, POST SPINE, LUMB/SACR/LUMBOSAC N/A 05/26/2014 @I & D, OPEN, DEEP ABSCESS, LUMBAR, SACRAL, LUMBOSACRAL performed by Freddy Isbell MD at [facility] MAIN OR ??? PRO IMPACT TOOTH REMOV COMP BONY N/A 06/14/2018 SURGICAL EXTRACTIONS, REMOVAL OF IMPACTED TOOTH, COMPLETELY BONY (WRVU 1.93) performed by Keith Cotton MD at [facility] OSC ??? PRO OSTEOTOMY FEMUR SHAFT/SUPRACONDY 08/15/2010 ??OSTEOTOMY, FEMUR SHAFT OR SUPRACONDYLAR W/O FIXATION performed by BARRERA OLIVER at [facility] OR ??? PRO RECONSTRUC HIP SOCKET, RESEC FEM HEAD 08/15/2010 ??ACETABULOPLASTY (GIRDLESTONE), RESECTION FEMORAL HEAD, BILATERAL performed by BARRERA OLIVER Pending sale to [facility] OR ??? PRO REMOVAL DEEP IMPLANT 08/15/2010 REMOVAL IMPLANT, DEEP, BRUNO performed by BARRERA OLIVER at [facility] OR ??? PRO REMOVAL ERUPTED TOOTH WITH ELEVATION OF MUCOPERIOSTEAL FLAP N/A 06/14/2018 SURGICAL EXTRACTIONS REQUIRING ELEVATION OF MUCOPERIOSTEAL FLAP AND REMOVAL OF BONE OR SECTION OF TOOTH (WRVU 1.09) performed by Keith Cotton MD at [facility] OSC ??? PRO REMOVE INFUSN DEVICE/PUMP N/A 05/11/2014 REMOVAL OF SPINE INFUSION PUMP performed by Jamaal Samuel MD at [facility] MAIN OR ??? PRO REMOVE SPINAL CANAL CATHETER N/A 05/11/2014 REMOVAL OF INTRATHECAL OR EPIDURAL CATHETER performed by Jamaal Samuel MD at [facility] MAIN OR ??? PRO REPR, DURAL/CSF LEAK, NOT REQ LAMINECTOMY N/A 05/20/2014 @REPAIR DURAL\CSF LEAK,NOT REQUIRING LAMINECTOMY performed by Freddy Isbell MD at [facility] MAIN OR Social History and Habits: [...] EDT TH Visit (TeleHealth) [place] [address] Lilli Joy APRN [facility] [place] [address] 12/03/2023 12:30 PM EDT Office [place] [address] Hollie Ambriz MD [facility] [place] [address] 12/03/2023 2:30 PM ED[place] [address] Andrade Melvin MD [facility] [place] [address] documented as of this encounter Procedures Procedure [...] 1-400 mL, Other, ONCE, 1 dose, On Thu08/11/22 at 1300, For intra-procedural use by proceduralist., Angio/IR (Intra-Procedure), Routine Given 08/11/2022 1:00 PM EDT 10 mLs lidocaine (Xylocaine) 1% (10 mg/mL) injection 10 mg 10 mg, Subcutaneous, ONCE, 1 dose, On Thu08/11/22 at 1300, For use in Interventional Radiology (IR) only for procedure with direct provider supervision and verbal order., Angio/IR (Intra-Procedure), Routine Given 08/11/2022 1:48 PM EDT 10 mg documented in this encounter Care Teams Shag Truck Driver Relationship Specialty Start Date End Date Lorna Bal, [place] [address] [place] [address] PCP - General Family Medicine 05/27/18 documented as of this encounter
--- OUTSIDE RECORDS SUMMARY | 2023-11-16 16:57 | XMS_ITS | Encounter Summary ---
Author Organization [facility] [place] [address] Care Team Providers Care Cardiology Technologist Name Role Phone Lorna Bal APRN Primary Care Provider +1 -[phone] Reason for Referral * Diagnostic Test (Routine) - Closed Specialty Diagnoses / Procedures Referred By Contac t Referred To Contact Radiology Diagnoses Abscess Procedures CT Lumbar Spine w Contrast [place] [address] [facility] [place] [address] Referral ID Status Reason Start Date Expiration Date V isits Requested Visits Authorized [id number] Closed Specialty Service Requested 08/12/2022 02/12/2024 1 1 Reason for Visit * Diagnostic Test (Routine) - Closed Specialty Diagnoses / Procedures Referred By Contac t Referred To Contact Radiology Diagnoses Abscess Procedures CT Lumbar Spine w Contrast [place] [address] [facility] [place] [address] Referral ID Status Reason Start Date Expiration Date V isits Requested Visits Authorized [id number] Closed Specialty Service Requested 08/12/2022 02/12/2024 1 1 Encounter Details Date Type Department Care Team (Latest Contact Info) Description 08/13/2022 8:33 AM EDT - 08/13/2022 11:59 PM EDT Hospital [place] [address] [place] [address] Abscess Discharge Disposition: Home Social [...] EDT TH Visit (TeleHealth) [place] [address] Lilli Joy APRN [facility] [place] [address] 12/03/2023 12:30 PM EDT Office Visit [place] [address] Hollie Ambriz MD [facility] [place] [address] 12/03/2023 2:30 PM EDT Appointment [place] [address] Andrade Melvin MD [facility] [place] [address] documented as of this encounter [...] who have questions please contact the health director of healthcare systems that requested your imaging first. ? Narrative [...] patients who have questions please contactthe health director of healthcare systems that requested your imaging first. Jamshid Collins [...] mLs documented in this encounter Care Teams Cardiology Technologist Relationship Specialty Start Date End Date Lorna Bal APRN [address] [place] [address] PCP - General Family Medicine 05/27/18 documented as of this encounter
--- OUTSIDE RECORDS SUMMARY | 2023-11-16 16:57 | XMS_ITS | Encounter Summary ---
Author Organization [facility] [place] [address] Care Team Providers Care Multiple Sclerosis Nurse Name Role Phone Lorna Bal APRN Primary Care Provider +1 -[phone] Encounter Details Date Type Department Care Team (Late st Contact Info) Description 08/15/2022 Telephone [place] [address] Shawn Woodard MD [facility] [place] [address] Social History Tobacco Use Types Packs/Day Years [...] to answer her earlier call to the [facility] nursing group with concerns. She was both confused after her clinic appointment of two days ago, when she feels that she received two different messages from the fellow and attending she saw (one suggesting there may not even olmedo infection and the other that Tana might need to be on antibiotics for life); and also concernedabout a craig of erythema which she had noted around [...] may not be curable (hence discussion about superintendent terminal antibiotics), especially with the remaining screw, which [...] EDT TH Visit (TeleHealth) Infectious Disease at [address]1000 Lilli Joy APRN [facility] [place] [address] 12/03/2023 12:30 PM EDT Office Visit Infectious Disease at [place] [phone] Hollie Ambriz MD [facility] [place] [address] 12/03/2023 2:30 PM EDT Appointment Radiology at [place] [phone] Andrade Melvin MD [facility] [place] [address] documented as of this encounter Visit Diagnoses Not on filedocumented in this encounter Care Teams Multiple Sclerosis Nurse Relationship Specialty Start Date End Date Lorna Bal APRN [address] [place] [address] PCP - General Family Medicine 05/27/18 documented as of this encounter
--- OUTSIDE RECORDS SUMMARY | 2023-11-16 16:57 | XMS_ITS | Encounter Summary ---
Author Organization [facility] [place] [address] Care Team Providers Care Box Order Person Name Role Phone Lorna Bal APRN Primary Care Provider +1 -[phone] Encounter Details Date Type Department Care Team (Late st Contact Info) Description 08/15/2022 Telephone [place] [address] Neva Thorpe, RN Social History Tobacco Use [...] 08/15/2022 2:26 PM EDT Pictures received via [facility] of Tana's back wound. This RN spoke [...] EDT TH Visit (TeleHealth) Infectious Disease at [address]1000 Lilli Joy APRN [facility] [place] [address] 12/03/2023 12:30 PM EDT Office Visit Infectious Disease at [address]1000 Hollie Ambriz MD [facility] [place] [address] 12/03/2023 2:30 PM EDT Appointment Radiology at [address]1000 Andrade Melvin MD [facility] [place]NOST[place] [address] documented as of this encounter Visit Diagnoses Not on filedocumented in this encounter Care Teams Box Order Person Relationship Specialty Start Date End Date Lorna Bal APRN [address] [place] [address] PCP - General Family Medicine 05/27/18 documented as of this encounter
--- OUTSIDE RECORDS SUMMARY | 2023-11-16 16:57 | XMS_ITS | Encounter Summary ---
Author Organization [facility] [place] [address] Care Team Providers Care Auto Transmission Mechanic Name Role Phone Lorna Bal APRN Primary Care Provider +1 -[phone] Encounter Details Date Type Department Care Team (Late st Contact Info) Description 08/19/2022 Telephone Infectious Disease at [facility] [place] [address] Lilli Joy APRN [facility] [place] [address] Social History Tobacco Use Types Packs/Day Years [...] Notes * Telephone Encounter - Lilli Joy, SWIMMING POOL SERVICEPERSON - 08/19/2022 8:59 PM EDT S: Received [...] EDT TH Visit (TeleHealth) Infectious Disease at [address]1000 Lilli Joy APRN [facility] [place] [address] 12/03/2023 12:30 PM EDT Office [place] [address] Hollie Ambriz MD [facility] [place] [address] 12/03/2023 2:30 PM EDT Appointment Radiology at [place] [phone] Andrade Melvin MD [facility] [place] [address] documented as of this encounter Visit Diagnoses Not on filedocumented in this encounter Care Teams Auto Transmission Mechanic Relationship Specialty Start Date End Date Lorna Bal APRN [address] [place] [address] PCP - General Family Medicine 05/27/18 documented as of this encounter
--- OUTSIDE RECORDS SUMMARY | 2023-11-16 16:57 | XMS_ITS | Encounter Summary ---
[place] [address] Care Team Providers Care Pipefitter Name Role Phone Lorna Bal APRN Primary Care Provider [phone] Encounter Details Date Type Department Care Team (Latest Contact Info) Description 08/11/2022 2:40 PM EDT Laboratory Appointment Lab [address] [id number] Spinal abscess; Bacteremia; E coli infection; Soft [...] EDT TH Visit (TeleHealth) [place] [address] Lilli Joy [facility]N [facility] [place] [address] 12/03/2023 12:30 PM EDT Office [place] [address] Hollie Ambriz MD [facility] [place] [address] 12/03/2023 2:30 PM EDT [place] [address] Andrade Melvin MD [facility] DIAGNOSTIC RADIOLOGY [place], [place] [id number] documented as of this encounter Procedures Procedure [...] abscess HC CBC,PLT & AUTO DIFF Routine 2:53 PM EDT Spinal abscess Bacteremia E coli infection Soft tissue abscess Muscle abscess COMPREHENSIVE METABOLIC PANEL (NON-FASTING) Routine 08/11/2022 2:53 PM EDT Spinal abscess Bacteremia E coli infection Soft tissue abscess Muscle abscess documented in this encounter Results * Differential, Automated (08/11/2022 2:53 PM EDT) Neutrophils % 66.1 % [facility] Neutr Abs (ANC) 4.09 1.70 - 6.10 x10(3)/[facility]OR[facility] Lymphocytes % 26.8 % [facility] Lymphocytes Abs 1.7 0.9 - 3.2 x10(3)/[facility]OR[facility] Monocytes % 5.7 % [facility] Monocyte Abs 0.4 0.3 - 0.9 x10(3)/[facility] Eosinophils % 1.1 % [facility] Eosinophils Abs 0.1 0.0 - 0.4 x10(3)/[facility] Basophils % 0.3 % [facility] Basophils Abs 0.0 0.0 - 0.1 x10(3)/[facility] LABORATORY Immature Gran % 0.00 % [facility] Comment: Immature granulocytes(IG's)percentage and absolute count will include metamyelocytes, myelocytes, and promyelocytes. Blood smears from CBCs yielding IG's will be scanned manually for concordance. If this scan disagrees with the automated IG or if promyelocytes are noted, a manual differential will be performed. Debora Gran Abs 0.00 0.00 - 0.04 x10(3)/[facility] LABORATORY Blood 08/11/2022 2:53 PM EDT 08/11/2022 3:21 PM EDT Narrative Resulting Agency Comment Spec In Lab Jamaal Estrada MD HEMATOLOGY ORDERABL ES [facility] [place] [address] * (ABNORMAL) Hemogram (08/11/2022 2:53 PM EDT) Pathologist [facility] WBC 6.2 4.0 - 9.5 x10(3)/[facility] LABORATORY RBC 4.81 4.00 - 5.21 x10(6)/[facility] Hemoglobin 12.1 11.7 - 15.5 g/dL [facility] Hematocrit 37.4 35.7 - 45.8 % [facility] MCV 77.8(L) 82.6 - 94.4 [facility] MCH 25.2(L) 27.1 - 32.0 pg [facility] MCHC 32.4 31.7 - 35.0 g/dL [facility] Platelets 387(H) 145 - 357 x10(3)/[facility]OR[facility] RDWSD 50.0(H) 37.0 - 46.0 [facility] RDWCV 17.9(H) 11.5 - 14.1 % [facility] MPV 9.6 7.6 - 12.9 [facility] nRBC % Auto 0.0 % [facility] nRBC Abs Auto 0.000 0.000 - 0.000 x10(3)/[facility] Blood 08/11/2022 2:53 PM EDT 08/11/2022 3:21 PM EDT Narrative Resulting Agency Comment Spec In Lab Jamaal Estrada MD HEMATOLOGY ORDERABL ES [facility] [place] [address] * (ABNORMAL) Comprehensive metabolic panel (non-fasting) (08/11/2022 2:53 PM EDT) Glucose Lvl 75 65 - 199 mg/dL [facility] Comment:Diabetes: >=200 mg/d L plus symptoms BUN 9 8 - 18 mg/dL [facility] Creatinine 0.25(L) 0.70 - 1.20 mg/dL [facility] Sodium 141 135 - 145 mmol/L [facility] Potassium 4.0 3.5 - 5.0 mmol/L [facility] Comment: Please note: ??Patients with WBC >100,000 may have falsely elevated Potassium levels. ??For accurate Potassium quantification in these patients send serum separator tube (gold top) for subsequent determinations. ??Contact the Clinical Chemistry Laboratory if there are any questions. Chloride 105 98 - 107 mmol/L [facility] CO2 24 22 - 31 mmol/L [facility] Anion Gap 12 5 - 15 mmol/L [facility] Calcium 9.4 8.5 - 10.5 mg/dL [facility] Total Protein 8.0 6.1 - 8.0 g/dL [facility] Albumin 4.2 3.2 - 5.2 g/dL [facility] AST 19 0 - 30 unit/L [facility] ALT 26 0 - 30 unit/L [facility] Alk Phos 211(H) 35 - 105 unit/L [facility] Total Bilirubin <0.2(L) 0.2 - 1.3 mg/dL [facility] Estimated GFR 154 >=60 mL/min/1. 73 m?? [facility] Comment: This patient's estimated GFR [...] Lab Jamaal Estrada MD CHEMISTRY ORDERABLE S [facility] [place] [address] * (ABNORMAL) CRP, acute inflammation (08/11/2022 2:53 PM EDT) CRP 45.8(H) <=4.9 mg/L [facility] Blood 08/11/2022 2:53 PM EDT 08/11/2022 3:21 PM EDT Narrative Resulting Agency Comment Spec In Lab Jamaal Estrada MD CHEMISTRY ORDERABLE S Performing Organization Address City/State/[facility] Co de Phone Number [facility] [place] [address] documented in this encounter Visit Diagnoses Diagnosis Spinal abscess Acute osteomyelitis, other specified site Bacteremia E coli infection Other and unspecified Escherichia coli (E. coli) Soft tissue abscess Cellulitis and abscess of other specified site Muscle abscess Other disorder of muscle, ligament, and fascia documented in this encounter Care Teams Pipefitter Relationship Specialty Start Date End Date Lorna Bal APRN [address] [place] [address] PCP - General Family Medicine 05/27/18 documented as of this encounter
--- OUTSIDE RECORDS SUMMARY | 2023-11-16 16:57 | XMS_ITS | Encounter Summary ---
[place] [address] Care Team Providers Care Structural Biologist Name Role Phone Lorna Bal APRN Primary Care Provider [phone] Reason for Referral * Diagnostic Test (Routine) - New Request Specialty Diagnoses / Procedures Referred By Contac t Referred To Contact Radiology Diagnoses Spinal abscess Procedures IR Drain Check/Change/Remove Lucho Burciaga MD [facility] [place] [address] [place] [address] Referral ID Status Reason Start Date Expiration Date Visits Requested Visits Authorized [id number] New Request Specialty Service Requested 07/24/2022 01/25/2024 1 1 Reason for Visit * Reason Comments Wound Check * Auth/Cert (Routine) Specialty Diagnoses / Procedures Referred By Contac t Referred To Contact Diagnoses Abscess Procedures EMERGENCY Eddi Samuel MD [facility] [place] [address] [facility] Referral ID Status Reason Start Date Expiration Date Visits Re quested Visits Authorized [id number] 1 1 Encounter Details Date Type Department Care Team (Latest Contact Info) Description 07/22/2022 5:43 PM EDT - 08/01/2022 5:12 PM EDT Hospital Encounter Medical Specialites Unit Level 1 [place] [id number] Alek Tavares MD [facility] [address] [place] [address] Eddi Váz[place] [address] [place] [address] [place] [address] 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 Dx); QT prolongation; Abscess [...] Tana Cavazos Patient Age: 27 y.o. Language: Tajik Race: White Ethnicity: Not nor Admit date: [...] please contact your inpatient physician through the [facility] Diagnostic Imaging Manager . Issues afterhours and on weekends will [...] [Transparent Dressings] Itching and Dermatitis Please use [id number] ??? Penicillins Immunizations Given this Hospitalization: Immunization History Administered Date(s) Administered ??? Influenza Vaccine (Novel) [id number], Injectable 02/25/2009 ??? Influenza Vaccine w/Preservative, Split [...] her to stop it. She might require nursing home antibiotics to suppress infection. At some point [...] Center 08/07/2022 1:00 PM Lilli Joy APRN [facility] [place] [facility] 08/11/2022 12:50 PM [facility] IR ROOM 6 MH IR [facility] Rad 08/13/2022 11:30 AM Sergey Keane MD [facility] Follow-up Appointments: N/A Your Inpatient Doctor(s) at [facility]: ALEK TAVARES, ERNESTO MCCARTHY, EDDI BELL TIMOTHY R For questions regarding issues relating to your hospitalization on the Hospital Medicine Service, please contact your inpatient physician through the [facility] Diagnostic Imaging Manager [phone]. Issues after hours and on weekends will be handled by the Hospitalist staff on-call. Your Primary Care Provider Lorna Bal APRN [phone] General Instructions INTERVENTIONAL RADIOLOGY DRAIN CARE INSTRUCTIONS [...] is during regular office hours, please call [phone]. If it is after regular office hours, or on weekends or holidays, please call [phone] and ask to speak to the Supervisor Fabrication Department consulting technical director for Interventional Radiology. XX You have received [...] PM Lilli Joy APRN Infectious Disease at [facility] Arrive at: Home [phone] Please do not come in for this visit. Your provider will call you at the number you provided. 08/11/2022 12:50 PM [facility] IR ROOM 6 Radiology at [facility] Arrive at: [facility] RADIOLOGY [phone] Please expect a call from a radiology nurse within 3 days of your exam, you will need to follow theinstructions given at that time. 08/13/2022 11:30 AM Sergey Keane MD Infectious Disease at [facility] Arrive at: Pediatric Nurse Practitioner Area [phone] Future Orders Complete By Expires IR Drain Check/Change/Remove [[id number] Custom] 08/07/2022 (Approximate) 02/06/2023 Process Instructions: Scheduling Instructions: Comments: Questions: Where will study be performed?: [facility] Radiology Reason for exam and [...] ?: No CT Lumbar Spine w Contrast [[id number] Custom] 08/08/2022 02/07/2023 Process Instructions: Scheduling Instructions: Questions: Clinical information / foster questions for radiologist: eval for interval changes in abscesses s/p drain placement Where will study be performed?: [facility] Radiology Is the patient ?: No Stat read required?: Does patient require sedation?: GA rationale: Date of injury if applicable: Recurring Lab Work Interval Expires CBC (with Diff) [VCP516 Custom] Once a week until 08/02/2023 08/02/2023 Process Instructions: INCLUDES: WBC, RBC, Hgb, Hct, Platelets, RBC Indices and Differential Scheduling Instructions: Comments: Questions: Comprehensive metabolic panel (non-fasting) [LAB17 Custom] Once a week until 08/02/2023 08/02/2023 Process Instructions: INCLUDES: Calcium, T Protein, Albumin, AST, ALT, Alk Phos, T Bili, BUN, Creat, GFR, Glucose, Lytes. Scheduling Instructions: Comments: Questions: CRP, acute inflammation [[id number] Custom] Once a week until 08/02/2023 08/02/2023 [...] is during regular office hours, please call [phone]. If it is after regular office hours, or on weekends or holidays, please call [phone] and ask to speak to the Supervisor Fabrication Department consulting technical director for Interventional Radiology. XX You have received [...] her to stop it. She might require nursing home antibiotics to suppress infection. At some point [...] Center 08/07/2022 1:00 PM Lilli Joy APRN [facility] 5C [facility] 08/11/2022 12:50 PM [facility] IR ROOM 6 [facility] Rad 08/13/2022 11:30 AM Sergey Keane MD [facility] 5C [facility] Follow-up Appointments: N/A Your Inpatient Doctor(s) at [facility]: ALEK TAVARES ABHIJIT S STEWART, EMILY A O'DOWD, EDDI BELL TIMOTHY R For questions regarding issues relating to your hospitalization on the Hospital Medicine Service, please contact your inpatient physician through the [facility] Diagnostic Imaging Manager [phone]. Issues after hours and on weekends will be handled by the Hospitalist staff on-call. Your Primary Care Provider Lorna Bal, INSURANCE ACCOUNT EXECUTIVE [phone] documented in this encounter Medications at Time [...] Lundberg DO ID Fellow Green Team Pager: [phone] I examined the patient independently of Dr. [...] a hospital length of stay nutrition evaluation. Veterans Adviser spoke with nursing d/tpt status. Per documentation patient has excellent PO intakes recorded at 75-100% over the past 4 days. According to dining services software they have ordered btwn 1608-3033kcals/day within the sameduration. Pt is eating great with caregiver assistance and is completing 75% of food received per RN. Veterans Adviser unable to assess weight d/t only documentation [...] spent >30 minutes (Day of Discharge Code 68997) involved in the final examination of the patient, discussion of the hospital stay, instructions for continuing care to all relevant caregivers, and preparation of discharge records, prescriptions and referral forms. Plans ? Discharge to home ? Follow-up scheduled with infectious diseases, IR ? Please see the Discharge Summary for complete details of any medication changes and additional plans. Jamshid [place] MD [facility] Medicine * Yandy Masters RN - 08/01/2022 2:01 AM EDTSummary: Nursing OUTCOME EVALUATION NOTE: OUTCOME SUMMARY: Alert, non-verbal, hx of paraplegia, vss, 2a/L, no s+s of pain. Patient is resting comfortably in bed, Fannie (reel operator) at bedside and attentive to patient, 2 [...] Lundberg, DO ID Fellow Green Team Pager: [phone] I examined the patient independently of Dr. [...] placement possible plastics involvement. Joe Harrison MD [facility] - Department of Orthopaedic Surgery Veneer Taping Machine Operator - Department of Orthopedic Surgery / Academics and Research Special Agent Fbi Professor - [facility] 08/01/2022 * Jamshid [place] MD [...] drain x 2, oropeza, PIV Anticipated Disposition: termite helper care facility Code Status: Attempt Cardiopulmonary Resuscitation [...] of two midnights or is on the [facility] inpatient only procedure list (status C) due to: monitoring of fluid status given an inability to regulate fluid balance and the need for administration or restriction of fluids Team Pager(MD Coverage 17/11): #[phone] PCP: Lorna Bal, INSURANCE ACCOUNT EXECUTIVE [phone] Jamshid [place] MD 07/31/2022 * Paige Gonzalez [...] ADLs]: Hands on Surveillance [continuous indirect monitoring]: [employer] Bed alarm Room near nurses' station Rounding [...] Lundberg, DO ID Fellow Green Team Pager: [phone] I interviewed and examined the patient independently [...] [place] MD - 07/30/2022 11:31 AM EDT [facility] Medicine Attending Daily Progress Note Admit [...] Identification Panel by PCR Refer to link [email or web address] for a complete list of organisms. Identification [...] drain x 2, oropeza, PIV Anticipated Disposition: termite helper care facility Code Status: Attempt Cardiopulmonary Resuscitation [...] of two midnights or is on the [facility] inpatient only procedure list (status C) due to: monitoring of fluid status given an inability to regulate fluid balance and the need for administration or restriction of fluids Team Pager(MD Coverage 17/11): #[phone] PCP: Lorna Bal, INSURANCE ACCOUNT EXECUTIVE [phone] Jamshid [place] MD 07/30/2022 * Shawn Woodard [...] attending, Dr. Vance Lundberg DO ID Fellow Dale Team Pager: [phone] I interviewed and examined the patient independently [...] future testing is required, contact the Microbiology Telesales Consultant. * No growth at 5 days. No [...] drain x 2, oropeza, PIV Anticipated Disposition: termite helper care facility Code Status: Attempt Cardiopulmonary Resuscitation [...] of two midnights or is on the [facility] inpatient only procedure list (status C) due to: monitoring of fluid status given an inability to regulate fluid balance and the need for administration or restriction of fluids Team Pager(MD Coverage 17/11): #[phone] PCP: Lorna Bal, INSURANCE ACCOUNT EXECUTIVE [phone] Jamshid [place] MD 07/29/2022 * Jamshid Collins [...] future testing is required, contact the Microbiology Telesales Consultant. * No growth at 5 days. No [...] drain x 2, oropeza, PIV Anticipated Disposition: termite helper care facility Code Status: Attempt Cardiopulmonary Resuscitation [...] of two midnights or is on the [facility] inpatient only procedure list (status C) due to: monitoring of fluid status given an inability to regulate fluid balance and the need for administration or restriction of fluids Team Pager( Coverage 17/11): #[phone] PCP: Lorna Bal, INSURANCE ACCOUNT EXECUTIVE [phone] Jamshid [place] MD 07/28/2022 * Margy Mtz [...] future testing is required, contact the Microbiology Telesales Consultant. * No growth at 5 days. No [...] drain x 2, oropeza, PIV Anticipated Disposition: termite helper care facility Code Status: Attempt Cardiopulmonary Resuscitation [...] of two midnights or is on the [facility] inpatient only procedure list (status C) due to: monitoring of fluid status given an inability to regulate fluid balance and the need for administration or restriction of fluids Team Pager( Coverage 17/11): #[phone] PCP: Lorna Bal, INSURANCE ACCOUNT EXECUTIVE [phone] Jamshid [place] MD 07/27/2022 * Citlali Mcdonald [...] future testing is required, contact the Microbiology Telesales Consultant. * No growth at 5 days. No [...] drain x 2, oropeza, PIV Anticipated Disposition: termite helper care facility Code Status: Attempt Cardiopulmonary Resuscitation [...] of two midnights or is on the [facility] inpatient only procedure list (status C) due to: monitoring of fluid status given an inability to regulate fluid balance and the need for administration or restriction of fluids Team Pager( Coverage 17/11): #[phone] PCP: Lorna Bal, INSURANCE ACCOUNT EXECUTIVE [phone] Jamshid [place] MD 07/26/2022 * Citlali Mcdonald [...] the same area she presented returned to [facility] on 07/[place], a repeated CT of the [...] Sergey Doan MD Infectious Disease Fellow Pager [phone] 07/25/22 (Attending addendum to follow) Associated attestation [...] future testing is required, contact the Microbiology Telesales Consultant. * No growth at 5 days. No [...] drain x 2, oropeza, PIV Anticipated Disposition: nursing home care facility Code Status: Attempt Cardiopulmonary Resuscitation [...] of two midnights or is on the [facility] inpatient only procedure list (status C) due to: monitoring of fluid status given an inability to regulate fluid balance and the need for administration or restriction of fluids Team Pager( Coverage 17/11): #[phone] PCP: Lorna Bal, INSURANCE ACCOUNT EXECUTIVE [phone] Jamshid [place] MD 07/25/2022 * Anamika Todd [...] Todd PA-C Interventional Radiology IR Team Pager [phone] * Citlali Mcdonald RN - 07/25/2022 4:46 [...] of : 1995 AGE: 27 y.o. Address: [address] [place] [address] Phone: [phone] (home) Mobile: Telephone Information: Referring Provider: Unknown [...] [Transparent Dressings] Itching and Dermatitis Please use [id number] ??? Penicillins Pertinent PMH: Patient Active Problem [...] - DVT PPx: lovenox - Disposition: her nursing home care facility - Family support: mother and her termite helper care providers - Code Status: Attempt Cardiopulmonary Resuscitation - Inpatient IPI Certification I certify that I am a D-H credentialed attending provider with admitting privileges and that the patient meets or has met medical necessity to require an inpatient IPI level of care meeting a minimumof two midnights or is on the [facility] inpatient only procedure list (status C) due to: monitoring of fluid status given an inability to regulate fluid balance and the need for administration or restriction of fluids Ernesto Willingham MD TEAM/PAGER:[phone] Subjective/24hr events: Says yes to most questions. [...] future testing is required, contact the Microbiology Telesales Consultant. * No growth at 5 days. No [...] who have questions please contact the health acute care assistant that requested your imaging first. Electronically signed by: Jamaal Villafuerte [facility] ([phone]), at 07/22/2022 8:03 PM Medications: Scheduled Meds: [...] - DVT PPx: lovenox - Disposition: her nursing home care facility - Family support: mother and her termite helper care providers - Code Status: Attempt Cardiopulmonary Resuscitation - Inpatient IPI Certification I certify that I am a D-H credentialed attending provider with admitting privileges and that the patient meets or has met medical necessity to require an inpatient IPI level of care meeting a minimumof two midnights or is on the [facility] inpatient only procedure list (status C) due to: monitoring of fluid status given an inability to regulate fluid balance and the need for administration or restriction of fluids Ernesto Willingham MD TEAM/PAGER:[phone] Subjective/24hr events: Says yes to most questions. [...] future testing is required, contact the Microbiology Telesales Consultant. * No growth at 5 days. No [...] who have questions please contact the health acute care assistant that requested your imaging first. Electronically signed by: Jamaal Villafuerte [facility] ([phone]), at 07/22/2022 8:03 PM Medications: Scheduled Meds: [...] All Drainage Procedures 06/25/2022 Mich Martino MD [facility] INTERVENTIONL RAD ??? IR ALL DRAINAGE PROCEDURES 07/04/2022 IR All Drainage Procedures 07/04/2022 Mich Martino MD [facility] INTERVENTIONL RAD ??? IR DRAIN CHECK/CHANGE/REMOVE 07/01/2022 IR Drain Check/Change/Remove 07/01/2022 Jamaal Jenkins, DO [facility] INTERVENTIONL RAD ??? PRO APPLY OF HIP CASTS, TWO LEGS 08/15/2010 CAST APPLICATION, HIP SPICA, BOTH LEGS performed by YAS OLIVER at [facility] OR ? ? PRO I&D, POST SPINE, LUMB/SACR/LUMBOSAC N/A 05/20/2014 @I & D, OPEN, DEEP ABSCESS, LUMBAR, SACRAL, LUMBOSACRAL performed by Freddy Isbell MD at [facility] OR ? ? PRO I&D, POST SPINE, LUMB/SACR/LUMBOSAC N/A 05/26/2014 @I & D, OPEN, DEEP ABSCESS, LUMBAR, SACRAL, LUMBOSACRAL performed by Freddy Isbell MD at [facility] OR ??? PRO IMPACT TOOTH REMOV COMP BONY N/A 06/14/2018 SURGICAL EXTRACTIONS, REMOVAL OF IMPACTED TOOTH, COMPLETELY BONY (WRVU 1.93) performed by Keith [place] MD at [facility] OSC ??? PRO OSTEOTOMY FEMUR SHAFT/SUPRACONDY 08/15/2010 ??OSTEOTOMY, FEMUR SHAFT OR SUPRACONDYLAR W/O FIXATION performed by YAS OLIVER at [facility] OR ??? PRO RECONSTRUC HIP SOCKET, RESEC FEM HEAD 08/15/2010 ??ACETABULOPLASTY (GIRDLESTONE), RESECTION FEMORAL HEAD, BILATERAL performed [facility] ??? PRO REMOVAL DEEP IMPLANT 08/15/2010 REMOVAL IMPLANT, DEEP, BRUNO performed by YAS OLIVER at [facility] OR ??? PRO REMOVAL ERUPTED TOOTH WITH ELEVATION OF MUCOPERIOSTEAL FLAP N/A 06/14/2018 SURGICAL EXTRACTIONS REQUIRING ELEVATION OF MUCOPERIOSTEAL FLAP AND REMOVAL OF BONE OR SECTION OF TOOTH (WRVU 1.09) performed by Keith [place] MD at [facility] OSC ??? PRO REMOVE INFUSN DEVICE/PUMP N/A 05/11/2014 REMOVAL OF SPINE INFUSION PUMP performed by Jamaal Samuel MD at [facility] OR ??? PRO REMOVE SPINAL CANAL CATHETER N/A 05/11/2014 REMOVAL OF INTRATHECAL OR EPIDURAL CATHETER performed by Jamaal Samuel MD at [facility] OR ??? PRO REPR, DURAL/CSF LEAK, NOT REQ LAMINECTOMY N/A 05/20/2014 @REPAIR DURAL\CSF LEAK,NOT REQUIRING LAMINECTOMY performed by Freddy Isbell MD at [facility] MAIN OR Medications: No current facility-administered [...] All Drainage Procedures 06/25/2022 Mich Martino MD [facility] INTERVENTIONL RAD ??? IR ALL DRAINAGE PROCEDURES 07/04/2022 IR All Drainage Procedures 07/04/2022 Mich Martino MD [facility] INTERVENTIONL RAD ??? IR DRAIN CHECK/CHANGE/REMOVE 07/01/2022 IR Drain Check/Change/Remove 07/01/2022 Jamaal Jenkins, DO [facility] INTERVENTIONL RAD ??? PRO APPLY OF HIP CASTS, TWO LEGS 08/15/2010 CAST APPLICATION, HIP SPICA, BOTH LEGS performed by YAS OLIVER at [facility] OR ? ? PRO I&D, POST SPINE, LUMB/SACR/LUMBOSAC N/A 05/20/2014 @I & D, OPEN, DEEP ABSCESS, LUMBAR, SACRAL, LUMBOSACRAL performed by Freddy Isbell MD at [facility] OR ? ? PRO I&D, POST SPINE, LUMB/SACR/LUMBOSAC N/A 05/26/2014 @I & D, OPEN, DEEP ABSCESS, LUMBAR, SACRAL, LUMBOSACRAL performed by Freddy Isbell MD at [facility] OR ??? PRO IMPACT TOOTH REMOV COMP BONY N/A 06/14/2018 SURGICAL EXTRACTIONS, REMOVAL OF IMPACTED TOOTH, COMPLETELY BONY (WRVU 1.93) performed by Keith [place] MD at [facility] OSC ??? PRO OSTEOTOMY FEMUR SHAFT/SUPRACONDY 08/15/2010 ??OSTEOTOMY, FEMUR SHAFT OR SUPRACONDYLAR W/O FIXATION performed by YAS OLIVER at [facility] OR ??? PRO RECONSTRUC HIP SOCKET, RESEC FEM HEAD 08/15/2010 ??ACETABULOPLASTY (GIRDLESTONE), RESECTION FEMORAL HEAD, BILATERAL performed [facility] ??? PRO REMOVAL DEEP IMPLANT 08/15/2010 REMOVAL IMPLANT, DEEP, BRUNO performed by YAS OLIVER at [facility] OR ??? PRO REMOVAL ERUPTED TOOTH WITH ELEVATION OF MUCOPERIOSTEAL FLAP N/A 06/14/2018 SURGICAL EXTRACTIONS REQUIRING ELEVATION OF MUCOPERIOSTEAL FLAP AND REMOVAL OF BONE OR SECTION OF TOOTH (WRVU 1.09) performed by Keith [place] MD at [facility] OSC ??? PRO REMOVE INFUSN DEVICE/PUMP N/A 05/11/2014 REMOVAL OF SPINE INFUSION PUMP performed by Jamaal Samuel MD at [facility] OR ??? PRO REMOVE SPINAL CANAL CATHETER N/A 05/11/2014 REMOVAL OF INTRATHECAL OR EPIDURAL CATHETER performed by Jamaal Samuel MD at [facility] OR ??? PRO REPR, DURAL/CSF LEAK, NOT REQ LAMINECTOMY N/A 05/20/2014 @REPAIR DURAL\CSF LEAK,NOT REQUIRING LAMINECTOMY performed by Freddy Isbell MD at [facility] OR Medications: No current facility-administered [...] quadriplegia ID: 27 y.o. Female presents to [facility] with increased drainage from prior lumbar subcutaneous [...] All Drainage Procedures 06/25/2022 Mich Martino MD [facility] INTERVENTIONL RAD ??? IR ALL DRAINAGE PROCEDURES 07/04/2022 IR All Drainage Procedures 07/04/2022 Mich Martino MD [facility] INTERVENTIONL RAD ??? IR DRAIN CHECK/CHANGE/REMOVE 07/01/2022 IR Drain Check/Change/Remove 07/01/2022 Jamaal Jenkins, DO [facility] INTERVENTIONL RAD ??? PRO APPLY OF HIP CASTS, TWO LEGS 08/15/2010 CAST APPLICATION, HIP SPICA, BOTH LEGS performed by YAS OLIVER at [facility] MAIN OR ? ? PRO I&D, POST SPINE, LUMB/SACR/LUMBOSAC N/A 05/20/2014 @I & D, OPEN, DEEP ABSCESS, LUMBAR, SACRAL, LUMBOSACRAL performed by Freddy Isbell MD at [facility] MAIN OR ? ? PRO I&D, POST SPINE, LUMB/SACR/LUMBOSAC N/A 05/26/2014 @I & D, OPEN, DEEP ABSCESS, LUMBAR, SACRAL, LUMBOSACRAL performed by Freddy Isbell MD at [facility] MAIN OR ??? PRO IMPACT TOOTH REMOV COMP BONY N/A 06/14/2018 SURGICAL EXTRACTIONS, REMOVAL OF IMPACTED TOOTH, COMPLETELY BONY (WRVU 1.93) performed by Keith [place] MD at [facility] O[facility] ??? PRO OSTEOTOMY FEMUR SHAFT/SUPRACONDY 08/15/2010 ??OSTEOTOMY, FEMUR SHAFT OR SUPRACONDYLAR W/O FIXATION performed by YAS OLIVER at [facility] OR ??? PRO RECONSTRUC HIP SOCKET, RESEC FEM HEAD 08/15/2010 ??ACETABULOPLASTY (GIRDLESTONE), RESECTION FEMORAL HEAD, BILATERAL performed [facility] ??? PRO REMOVAL DEEP IMPLANT 08/15/2010 REMOVAL IMPLANT, DEEP, BRUNO performed by YAS OLIVER at [facility] OR ??? PRO REMOVAL ERUPTED TOOTH WITH ELEVATION OF MUCOPERIOSTEAL FLAP N/A 06/14/2018 SURGICAL EXTRACTIONS REQUIRING ELEVATION OF MUCOPERIOSTEAL FLAP AND REMOVAL OF BONE OR SECTION OF TOOTH (WRVU 1.09) performed by Keith [place] MD at [facility] O[facility] ??? PRO REMOVE INFUSN DEVICE/PUMP N/A 05/11/2014 REMOVAL OF SPINE INFUSION PUMP performed by Jamaal Samuel MD at [facility] OR ??? PRO REMOVE SPINAL CANAL CATHETER N/A 05/11/2014 REMOVAL OF INTRATHECAL OR EPIDURAL CATHETER performed by Jamaal Samuel MD at [facility] OR ??? PRO REPR, DURAL/CSF LEAK, NOT REQ LAMINECTOMY N/A 05/20/2014 @REPAIR DURAL\CSF LEAK,NOT REQUIRING LAMINECTOMY performed by Freddy Isbell MD at [facility] OR Prior To Admission Medications: (Not in a hospital admission) Allergies: Allergies Allergen Reactions ??? Fluoxetine Other (See Comments) HIVES, HEART RACES ??? Tegaderm [Transparent Dressings] Itching and Dermatitis Please use [id number] ??? Penicillins Family History: Family History Problem [...] Administered Date(s) Administered ??? Influenza Vaccine (Novel) [id number], Injectable 02/25/2009 ??? Influenza Vaccine w/Preservative, Split [...] external catheter placed. Will continue to monitor. Retort Setter at bedside. * Samuel Comer MD - [...] who have questions please contact the health acute care assistant that requested your imaging first. Electronically signed by: Jamaal Villafuerte [facility] ([phone]), at 07/22/2022 8:03 PM Recent Results (from [...] MD 07/22/22 Samuel Comer MD Resident 07/22/22 [id number] Associated attestation - Alek Tavares MD - [...] separate note. 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 female with history of traumatic [...] Willams RN - 08/01/2022 3:07 PM EDT Taan Cavazos discharged to home by wheelchair van [...] with plan. Yas John RN, BSN, LALA Manager Risk Pager [phone] * Plan of Care - Jimbo Willams [...] Name: Anderson Thorpe Decision Maker Contact Information: [phone] (M) Proxy Activated: Yes Functional status prior [...] Discharge: 08/01/2022 Yas John RN, BSN, LALA Manager Risk Pager [phone] * Plan of Care - Guerita Quinonez [...] for sensory deficits provided, if applicable: yes. dinkey mechanic present * Plan of Care - Tasha Desai RN - 07/29/2022 2:03 AM EDT OUTCOME [...] Masimo, bed alarm in use, purposeful rounding, resident care associate at bed side. * Care Management - [...] Name: Anderson Thorpe Decision Maker Contact Information: [phone] (M) Proxy Activated: Yes Functional status prior [...] Discharge: 07/29/2022 Yas John RN, BSN, LALA Manager Risk Pager [phone] * Plan of Care - Maren Barnard [...] for sensory deficits provided, if applicable: yes. dinkey mechanic present * Plan of Care - Osman [...] [address] Appointed Guardian(s) Contact Information: [phone] (H) [phone] (M) Proxy Activated: Yes Guardianship paperwork on [...] device, hospital bed Home Address listed as: [address] [place] [id number] Social & Family Supports: All names listed below confirmed with patient as current and correct Extended Emergency Contact Information [facility]: [facility] Relation: Mother Secondary Emergency [facility] Relation: Step parent Current Care Provided [...] N/A ; Prescription Coverage: Yes Preferred Pharmacy: [facility] [address] [place] [address] [place] [address] [place] [address] [facility] Home Delivery - [place], [place] - [address] [facility] [address] [address] - [facility], [place] - [address] [facility] [address] [place] [address] Status: Patient is a : No Primary Care Provider listed: Lorna Bal APRN [phone] Patient/Caregiver Goals of Treatment: return home with [...] care planning. Yas John RN, BSN, LALA Manager Risk Pager [phone] * Plan of Care - Osman Bowen RN - 07/24/2022 6:26 PM EDT OUTCOME EVALUATION NOTE: OUTCOME SUMMARY: Patient brightens with approach, on room air, resident care associate at bedside, IR placed 2 carmella drains [...] included. DEPARTMENT OF INFECTIOUS DISEASE & [facility] INFECTIOUS DISEASE CONSULT NOTE Patient Name: Tana Cavazos PCP: Lorna Bal APRN PCP phone #: [phone] Reason for Admission: Lumbar subcutaneous abscesses with [...] to the ED today. Upon arrival [place] [facility] she was found afebrile, hemodynamically stable. Normal [...] the same area she presented returned to [facility] on 07[place], a repeated CT of the [...] following additions/modifications: Patient was recently admitted to [facility] in early June 2022, at which point [...] of purulent material. She was re-admitted to [facility] on 07/22 for ongoing management, at which [...] on the date of service on the [id number] encounter, chart review, clinical decision making, documentation, [...] Discuss with Dr. Christy Menchaca MD Pager: [phone] 07/23/22 12:31 PM Future Appointments Date Time Provider Department Center 07/31/2022 1:00 PM Lilli Joy APRN [facility] 08/13/2022 11:30 AM Sergey Keane MD [facility] Associated attestation - Joe Harrison MD - 07/25/2022 12:47 PM EDT Recommend IR drainage. Try to avoid surgery. However, may need debridement and VAC placement. Joe Harrison MD [facility] - Department of Orthopaedic Surgery Veneer Taping Machine Operator - Department of Orthopedic Surgery / Academics and Research Special Agent Fbi Professor - [facility] 07/25/2022 * Consult Note - Oriana Rondon [facility] - 07/23/2022 1:09 AM EDT TelePharmacy Home Medication List Update for Medication Reconciliation 07/23/22 1:09 AM Tana Cavazos 1995 Allergies Allergen Reactions ??? Fluoxetine Other (See Comments) HIVES, HEART RACES ??? Tegaderm [Transparent Dressings] Itching and Dermatitis Please use [id number] ??? Penicillins ??? 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 Quality of Interview/accuracy of medication list: [...] list with information provided by patients adult reel operator, Fannie Villarreal. Fannie reports also using Interdry [...] EDT TH Visit (TeleHealth) Infectious Disease at [place] [phone] Lilli Joy APRN [facility] [address] [place] [address] 12/03/2023 12:30 PM EDT Office Visit [place] [phone] Hollie Ambriz MD [facility] INFECTIOUS DISEASE [place] [id number] 12/03/2023 2:30 PM EDT Appointment Radiology at [place] [phone] Andrade Melvin MD [facility] [place] [address] documented as of this encounter Procedures Procedure [...] 8:1 1 PM EDT RAPID COVID-19 PCR ([facility]) Routine 07/28/2022 8:01 PM EDT RESPIRATORY PANEL [...] 5:47 AM EDT) Neutrophils % 48.3 % [facility] Neutr Abs (ANC) 2.57 1.70 - 6.10 x10(3)/[facility] Lymphocytes % 42.1 % [facility] Lymphocytes Abs 2.2 0.9 - 3.2 x10(3)/[facility] Monocytes % 6.4 % [facility] Monocyte Abs 0.3 0.3 - 0.9 x10(3)/[facility] Eosinophils % 2.6 % [facility] Eosinophils Abs 0.1 0.0 - 0.4 x10(3)/[facility] Basophils % 0.4 % [facility] Basophils Abs 0.0 0.0 - 0.1 x10(3)/[facility] Immature Gran % 0.20 % [facility] Comment: Immature granulocytes(IG's)percentage and absolute count will include metamyelocytes, myelocytes, and promyelocytes. Blood smears from CBCs yielding IG's will be scanned manually for concordance. If this scan disagrees with the automated IG or if promyelocytes are noted, a manual differential will be performed. Debora Gran Abs 0.01 0.00 - 0.04 x10(3)/[facility] Blood 08/01/2022 5:47 AM EDT 08/01/2022 6:03 AM EDT Narrative Resulting Agency Comment Spec In Lab Jamshid Collins MD HEMATOLOGY ORDERABLE S [facility] [place] [address] * (ABNORMAL) Hemogram (08/01/2022 5:47 AM EDT) WBC 5.3 4.0 - 9.5 x10(3)/[facility] RBC 3.99(L) 4.00 - 5.21 x10(6)/[facility] Hemoglobin 9.9(L) 11.7 - 15.5 g/dL [facility] Hematocrit 32.2(L) 35.7 - 45.8 % [facility] MCV 80.7(L) 82.6 - 94.4 fL [facility] MCH 24.8(L) 27.1 - 32.0 pg [facility] MCHC 30.7(L) 31.7 - 35.0 g/dL [facility] Platelets 329 145 - 357 x10(3)/[facility] RDWSD 53.1(H) 37.0 - 46.0 fL [facility] RDWCV 18.1(H) 11.5 - 14.1 % [facility] MPV 9.3 7.6 - 12.9 fL [facility] nRBC % Auto 0.0 % [facility] nRBC Abs Auto 0.000 0.000 - 0.000 x10(3)/mcL [facility] Blood 08/01/2022 5:47 AM EDT 08/01/2022 6:03 AM EDT Narrative Resulting Agency Comment Spec In Lab Jamshid Collins MD HEMATOLOGY ORDERABLE S Performing Organization Address City/[facility]/ZIP Co de Phone Number [facility] [place] [address] * Blood culture (07/31/2022 1:09 PM EDT) Blood Culture No growth at 5 days. [facility] Blood STRUCTURE OF LEFT HAND / Unknown 07/31/2022 1:09 PM EDT 07/31/2022 2:09 PM EDT Comment:#2 Narrative Resulting Agency Comment Spec In Lab Jamshid Collins MD MICROBIOLOGY - BLOOD ORDERABLES Performing Organization Address City/[facility]/ZIP Co de Phone Number [facility] [place] [address] * Blood culture (07/31/2022 1:04 PM EDT) Blood Culture No growth at 5 days. [facility] Blood STRUCTURE OF RIGHT HAND / Unknown 07/31/2022 1:04 PM EDT 07/31/2022 2:09 PM EDT Comment:#1 Narrative Resulting Agency Comment Spec In Lab Jamshid Collins MD MICROBIOLOGY - BLOOD ORDERABLES Performing Organization Address City/[facility]/ZIP Co de Phone Number [facility] [place] [address] * Differential, Automated (07/31/2022 4:53 AM EDT) Neutrophils % 42.0 % [facility] Neutr Abs (ANC) 2.02 1.70 - 6.10 x10(3)/[facility] Lymphocytes % 47.6 % [facility] Lymphocytes Abs 2.3 0.9 - 3.2 x10(3)/[facility] Monocytes % 7.3 % [facility] Monocyte Abs 0.4 0.3 - 0.9 x10(3)/[facility] Eosinophils % 2.5 % [facility] Eosinophils Abs 0.1 0.0 - 0.4 x10(3)/[facility] Basophils % 0.4 % [facility] Basophils Abs 0.0 0.0 - 0.1 x10(3)/[facility] Immature Gran % 0.20 % [facility] Comment: Immature granulocytes(IG's)percentage and absolute count will include metamyelocytes, myelocytes, and promyelocytes. Blood smears from CBCs yielding IG's will be scanned manually for concordance. If this scan disagrees with the automated IG or if promyelocytes are noted, a manual differential will be performed. Debora Gran Abs 0.01 0.00 - 0.04 x10(3)/[facility] Blood 07/31/2022 4:53 AM EDT 07/31/2022 5:07 AM EDT Narrative Resulting Agency Comment Spec In Lab Jamshid Collins MD HEMATOLOGY ORDERABLE S [facility] [place] [address] * (ABNORMAL) Hemogram (07/31/2022 4:53 AM EDT) Pathologist [facility] WBC 4.8 4.0 - 9.5 x10(3)/[facility] RBC 4.16 4.00 - 5.21 x10(6)/[facility] Hemoglobin 10.3(L) 11.7 - 15.5 g/dL [facility] Hematocrit 33.3(L) 35.7 - 45.8 % [facility] MCV 80.0(L) 82.6 - 94.4 [facility] MCH 24.8(L) 27.1 - 32.0 pg [facility] MCHC 30.9(L) 31.7 - 35.0 g/dL [facility] Platelets 302 145 - 357 x10(3)/[facility] RDWSD 53.7(H) 37.0 - 46.0 [facility] RDWCV 18.5(H) 11.5 - 14.1 % [facility] MPV 9.2 7.6 - 12.9 [facility] nRBC % Auto 0.0 % [facility] nRBC Abs Auto 0.000 0.000 - 0.000 x10(3)/[facility] Blood 07/31/2022 4:53 AM EDT 07/31/2022 5:07 AM EDT Narrative Resulting Agency Comment Spec In Lab Jamshid Collins MD HEMATOLOGY ORDERABLE S [facility] [place] [address] * (ABNORMAL) CRP, acute inflammation (07/31/2022 4:53 AM EDT) CRP 28.8(H) <=4.9 mg/L [facility] Comment:result rechecked-KS Blood 07/31/2022 4:53 AM EDT 07/31/2022 5:07 AM EDT Narrative Resulting Agency Comment Spec In Lab Jamshid Collins MD CHEMISTRY ORDERABLES [facility] [place] [address] * (ABNORMAL) Basic Metabolic Panel (non-fasting) (07/31/2022 4:53 AM EDT) Glucose Lvl 88 65 - 199 mg/dL [facility] Comment:Diabetes: >=200 mg/d L plus symptoms BUN 11 8 - 18 mg/dL [facility] Comment:result rechecked-KS Creatinine 0.29(L) 0.70 - 1.20 mg/dL [facility] Sodium 138 135 - 145 mmol/L [facility] Potassium 3.9 3.5 - 5.0 mmol/L [facility] Comment: Please note: ??Patients with WBC >100,000 may have falsely elevated Potassium levels. ??For accurate Potassium quantification in these patients send serum separator tube (gold top) for subsequent determinations. ??Contact the Clinical Chemistry Laboratory if there are any questions. Chloride 103 98 - 107 mmol/L [facility] CO2 24 22 - 31 mmol/L [facility] Anion Gap 11 5 - 15 mmol/L [facility] Calcium 9.3 8.5 - 10.5 mg/dL [facility] Estimated GFR 148 >=60 mL/min/1. 73 m?? [facility] Comment: This patient's estimated [...] Collins MD CHEMISTRY ORDERABLES Performing Organization Address City/[facility]/ZIP Co de Phone Number [facility] [place] [address] * Differential, Automated (07/30/2022 5:14 AM EDT) Neutrophils % 44.1 % [facility] Neutr Abs (ANC) 1.79 1.70 - 6.10 x10(3)/[facility] Lymphocytes % 42.9 % [facility] Lymphocytes Abs 1.7 0.9 - 3.2 x10(3)/[facility] Monocytes % 9.1 % [facility] Monocyte Abs 0.4 0.3 - 0.9 x10(3)/[facility] Eosinophils % 3.2 % [facility] Eosinophils Abs 0.1 0.0 - 0.4 x10(3)/[facility] Basophils % 0.5 % [facility] Basophils Abs 0.0 0.0 - 0.1 x10(3)/[facility] Immature Gran % 0.20 % [facility] Comment: Immature granulocytes(IG's)percentage and absolute count will include metamyelocytes, myelocytes, and promyelocytes. Blood smears from CBCs yielding IG's will be scanned manually for concordance. If this scan disagrees with the automated IG or if promyelocytes are noted, a manual differential will be performed. Debora Gran Abs 0.01 0.00 - 0.04 x10(3)/[facility] Blood 07/30/2022 5:14 AM EDT 07/30/2022 5:38 AM EDT Narrative Resulting Agency Comment Spec In Lab Jamshid Collins MD HEMATOLOGY ORDERABLE S Performing Organization Address City/[facility]/ZIP Co de Phone Number [facility] [place] [address] * (ABNORMAL) Hemogram (07/30/2022 5:14 AM EDT) WBC 4.1 4.0 - 9.5 x10(3)/[facility] RBC 4.02 4.00 - 5.21 x10(6)/[facility] Hemoglobin 9.9(L) 11.7 - 15.5 g/dL [facility] Hematocrit 31.7(L) 35.7 - 45.8 % [facility] MCV 78.9(L) 82.6 - 94.4 fL [facility] MCH 24.6(L) 27.1 - 32.0 pg [facility] MCHC 31.2(L) 31.7 - 35.0 g/dL [facility] Platelets 305 145 - 357 x10(3)/[facility] RDWSD 53.1(H) 37.0 - 46.0 [facility] RDWCV 18.5(H) 11.5 - 14.1 % [facility] MPV 9.6 7.6 - 12.9 [facility] nRBC % Auto 0.0 % [facility] nRBC Abs Auto 0.000 0.000 - 0.000 x10(3)/[facility] Blood 07/30/2022 5:14 AM EDT 07/30/2022 5:38 AM EDT Narrative Resulting Agency Comment Spec In Lab Jamshid Collins MD HEMATOLOGY ORDERABLE S [facility] [place] [address] * Blood culture (07/30/2022 5:14 AM EDT) Blood Culture No growth at 5 days. [facility] Blood STRUCTURE OF LEFT HAND / Unknown 07/30/2022 5:14 AM EDT 07/30/2022 6:38 AM EDT Narrative Resulting Agency Comment Spec In Lab Yury Saavedra MD MICROBIOLOGY - BLOO D ORDERABLES [facility] [place] [address] * Phosphorus (07/28/2022 11:27 PM EDT) Phosphorus 4.2 2.5 - 4.5 mg/dL [facility] Blood Venous Draw / Unknown 07/28/2022 11:27 PM EDT 07/28/2022 11:44 PM EDT Narrative Resulting Agency Comment Spec In Lab Shea Fox MD CHEMISTRY ORDERABLES Performing Organization Address City/[facility]/ZIP Co de Phone Number [facility] [place] [address] * Magnesium (07/28/2022 11:27 PM EDT) Magnesium 0.73 0.69 - 1.07 mmol/L [facility] Blood Venous Draw / Unknown 07/28/2022 11:27 PM EDT 07/28/2022 11:44 PM EDT Narrative Resulting Agency Comment Spec In Lab Shea Fox MD CHEMISTRY ORDERABLES Performing Organization Address City/[facility]/ZIP Co de Phone Number [facility] [place] [address] * Differential, Automated (07/28/2022 11:27 PM EDT) Neutrophils % 51.2 % [facility] Neutr Abs (ANC) 2.52 1.70 - 6.10 x10(3)/[facility] Lymphocytes % 37.3 % [facility] Lymphocytes Abs 1.8 0.9 - 3.2 x10(3)/[facility] Monocytes % 9.1 % [facility] Monocyte Abs 0.4 0.3 - 0.9 x10(3)/[facility] Eosinophils % 1.4 % [facility] Eosinophils Abs 0.1 0.0 - 0.4 x10(3)/[facility] Basophils % 0.6 % [facility] Basophils Abs 0.0 0.0 - 0.1 x10(3)/[facility] Immature Gran % 0.40 % [facility] Comment: Immature granulocytes(IG's)percentage and absolute count will include metamyelocytes, myelocytes, and promyelocytes. Blood smears from CBCs yielding IG's will be scanned manually for concordance. If this scan disagrees with the automated IG or if promyelocytes are noted, a manual differential will be performed. Debora Gran Abs 0.02 0.00 - 0.04 x10(3)/[facility] Blood 07/28/2022 11:2 7 PM EDT 07/28/2022 11:34 PM EDT Narrative Resulting Agency Comment Spec In Lab Shea Fox MD HEMATOLOGY ORDERABLE S [facility] [place] [address] * (ABNORMAL) Hemogram (07/28/2022 11:27 PM EDT) WBC 4.9 4.0 - 9.5 x10(3)/[facility] RBC 4.06 4.00 - 5.21 x10(6)/[facility] Hemoglobin 10.0(L) 11.7 - 15.5 g/dL [facility] Hematocrit 32.3(L) 35.7 - 45.8 % [facility] MCV 79.6(L) 82.6 - 94.4 fL [facility] MCH 24.6(L) 27.1 - 32.0 pg [facility] MCHC 31.0(L) 31.7 - 35.0 g/dL [facility] Platelets 303 145 - 357 x10(3)/[facility] RDWSD 53.3(H) 37.0 - 46.0 fL [facility] RDWCV 18.5(H) 11.5 - 14.1 % [facility] MPV 9.2 7.6 - 12.9 fL [facility] nRBC % Auto 0.0 % [facility] nRBC Abs Auto 0.000 0.000 - 0.000 x10(3)/[facility] Blood 07/28/2022 11:2 7 PM EDT 07/28/2022 11:34 PM EDT Narrative Resulting Agency Comment Spec In Lab Shea Fox MD HEMATOLOGY ORDERABLE S [facility] [place] [id number] * (ABNORMAL) Blood culture (07/28/2022 11:27 PM EDT) Blood Culture Pseudomonas oryzihabitans isolated Isolate saved. If future testing is required, contact the Microbiology Telesales Consultant. (A) [facility] Gram Stain Aerobic Growth detected in aerobic bottle. Gram Negative Rods seen Results called to and read back by Guerita Quinonez RN ??07/30/22 02:02:27 (A) [facility] Organism Pseudomonas oryzihabitans(A) [facility] Organism Gram Negative Rods(A) [facility] Blood 07/28/2022 11:2 7 [...] MICROBIOLOGY - BLOOD ORDERABLES Performing Organization Address City/[facility]/ZIP Co de Phone Number [facility] [place] [address] * Lactate, whole blood, send to lab ([facility] (07/28/2022 11:27 PM EDT) Lactate WB 1.7 0.5 - 2.2 mmol/L [facility] Blood 07/28/2022 11:2 7 PM EDT 07/28/2022 11:33 PM EDT Narrative Resulting Agency Comment Spec In Lab Shea Fox MD CHEMISTRY ORDERABLES Performing Organization Address City/[facility]/ZIP Co de Phone Number [facility] [place] [address] * Lipase (07/28/2022 11:27 PM EDT) Lipase 29 0 - 60 unit/L [facility] Blood 07/28/2022 11:2 7 PM EDT 07/28/2022 11:34 PM EDT Narrative Resulting Agency Comment Spec In Lab hSea Fox MD CHEMISTRY ORDERABLES Performing Organization Address City/[facility]/ZIP Co de Phone Number [facility] [place] [address] * (ABNORMAL) Comprehensive metabolic panel (non-fasting) (07/28/2022 11:27 PM EDT) Glucose Lvl 98 65 - 199 mg/dL [facility] Comment:Diabetes: >=200 mg/d L plus symptoms BUN 7(L) 8 - 18 mg/dL [facility] Creatinine 0.30(L) 0.70 - 1.20 mg/dL [facility] Sodium 138 135 - 145 mmol/L [facility] Potassium 3.9 3.5 - 5.0 mmol/L [facility] Comment: Please note: ??Patients with WBC >100,000 may have falsely elevated Potassium levels. ??For accurate Potassium quantification in these patients send serum separator tube (gold top) for subsequent determinations. ??Contact the Clinical Chemistry Laboratory if there are any questions. Chloride 102 98 - 107 mmol/L [facility] CO2 25 22 - 31 mmol/L [facility] Anion Gap 11 5 - 15 mmol/L [facility] Calcium 9.2 8.5 - 10.5 mg/dL [facility] Total Protein 7.3 6.1 - 8.0 g/dL [facility] Albumin 3.6 3.2 - 5.2 g/dL [facility] AST 35(H) 0 - 30 unit/L [facility] ALT 42(H) 0 - 30 unit/L [facility] Alk Phos 182(H) 35 - 105 unit/L [facility] Total Bilirubin 0.2 0.2 - 1.3 mg/dL [facility] Estimated GFR 147 >=60 mL/min/1. 73 m?? [facility] Comment: This patient's estimated [...] Fox MD CHEMISTRY ORDERABLES Performing Organization Address City/[facility]/ZIP Co de Phone Number [facility] [place] [address] * (ABNORMAL) CRP, acute inflammation (07/28/2022 11:27 PM EDT) CRP 51.5(H) <=4.9 mg/L [facility] Blood 07/28/2022 11:2 7 PM EDT 07/28/2022 11:44 PM EDT Narrative Resulting Agency Comment Spec In Lab Jamshid Collins MD CHEMISTRY ORDERABLES Performing Organization Address City/[facility]/ZIP Co de Phone Number [facility] [place] [address] * Urinalysis with reflex Culture (07/28/2022 11:20 PM EDT) Glucose UA Negative Negative mg/dL [facility] Protein UA Negative Negative mg/dL [facility] Bilirubin UA Negative Negative mg/dL [facility] Comment: Clinical correlation required for positive Urine Bilirubin results as false positive may occur with some drugs and drug related products. If a false positive is suspected a serum total bilirubin should be considered if clinically indicated. Urobilinogen UA Normal Normal mg/dL [facility] pH UA 7.5 5.0 - 8.0 [facility] Blood UA Negative Negative mg/dL [facility] Ketones UA Negative Negative mg/dL [facility] Nitrite UA Negative Negative [facility] Leukocytes UA Negative Negative mcL [facility] Appearance UA Clear Clear [facility] Spec [place] UA 1.013 1.005 - 1.030 [facility] Color UA Yellow Yellow [facility] Culture Reflexed No [facility] Straight Catheter Urine 07/28/2022 11:20 PM EDT 07/29/2022 12:04 AM EDT Narrative Resulting Agency Comment Spec In Lab Shea Fox MD URINE ORDERABLES Performing Organization Address [facility] Co de Phone Number [facility] [place] [address] * Blood culture (07/28/2022 11:11 PM EDT) Blood Culture No growth at 5 days. [facility] Blood 07/28/2022 11:1 1 PM EDT 07/29/2022 12:17 AM EDT Comment:R hand Narrative Resulting Agency Comment Spec In Lab Shea Fox MD MICROBIOLOGY - BLOOD ORDERABLES Performing Organization Address [facility] de Phone Number [facility] [place] [address] * XR Chest One View (07/28/2022 8:11 [...] who have questions please contact the health acute care assistant that requested your imaging first. ? Electronically signed by: FAINA GALLEGO MD, [facility] ??([phone]), at 07/28/2022 8:32 PM Narrative 07/28/2022 8:32 PM EDT EXAMINATION: XR [...] patients who have questions please contactthe health acute care assistant that requested your imaging first. Jamshid Collins MD IMG DX ORDERABLES * (ABNORMAL) Respiratory Panel PCR (07/28/2022 8:01 PM EDT) Resp Panel Source [employer] Swab [facility] Resp Panel PCR Positive(A) Negative [facility] Comment: Respiratory Panels are performed on the Snip2Code, using multiplexed PCR nucleic acid detection. ??Negative results do not preclude respiratory infection and should not be used as the sole basis for diagnosis, treatment or other management decisions. Adenovirus Not Detected Not Detected [facility] Coronavirus HKU1 Not Detected Not Detected [facility] Coronavirus NL63 Not Detected Not Detected [facility] Coronavirus 229E Not Detected Not Detected [facility] Coronavirus OC43 Not Detected Not Detected [facility] SARS-CoV-2 Not Detected Not Detected [facility] Comment: Testing for SARS-CoV-2 (Severe acute respiratory syndrome coronavirus 2) to aid in the diagnosis of COVID-19 is performed using the kSARIAe Respiratory Panel 2.1 ([employer]) as authorized by the FDA issued Emergency Use Authorization (EUA). This panel also tests for multiple other viral and bacterial pathogens. This assay is intended for In-vitro Diagnostic (IVD) use with nasopharyngeal swabs in viral transport media. The assay is performed based on the instructions for use and additional guidance provided by the FDA. Testing is performed in laboratories within the [facility], each of which is certified under the [...] fact sheets at the following FDA website: https://www.fda.gov/medical-devices/rfpetdimqdb-nheyyxb-4210-ekemp-15-jvzsdhyuo- use-a ezpbqpimpawkh-tuyevnx-xiutoog/vesgs-kzqnxshslgf-gdfn Human Metapneumovirus Not Detected Not Detected [facility] Human Rhino/Enterovirus Detected(A) Not Detected [facility] Influenza A Not Detected Not Detected [facility] Influenza B Not Detected Not Detected [facility] Parainfluenza 1 Not Detected Not Detected [facility] Parainfluenza 2 Not Detected Not Detected [facility] Parainfluenza 3 Not Detected Not Detected [facility] Parainfluenza 4 Not Detected Not Detected [facility] Respiratory Syncytial Virus Not Detected Not Detected [facility] Chlamydophila pneumoniae Not Detected Not Detected [facility] Mycoplasma pneumoniae Not Detected Not Detected [facility] Nasopharyngeal Swab Other / Unknown 07/28 8:01 PM EDT 07/28/2022 8:29 PM EDT Comment:Symptoms->Fever / Re spiratory Symptoms Narrative Resulting Agency Comment Spec In Lab Shea Fox MD MICROBIOLOGY - GENER AL ORDERABLES [facility] [place] [address] * COVID-19 PCR (07/28/2022 8:01 PM EDT) SARS-CoV-2 RNA PCR Not Detected Not Detected [facility] Comment: This result should be interpreted [...] using the Simplexa COVID-19 Direct Assay by [employer] as authorized by the FDA issued Emergency [...] Department of Pathology and Laboratory Medicine at [facility], certified under the Clinical Laboratory Improvement Amendments [...] fact sheets at the following FDA website: https://www.fda.gov/medical-devices/mdhhlzdwnwb-xblrvit-8742-tsmpm-99-nhshdhpmw- use-a ktblpaitlmtvh-fmtxsdp-fslrkkb/ecdah-gjttuxamtdb-emqc SARS-CoV-2 Source [employer] Swab [facility] Nasopharyngeal Swab 07/29/19 8:01 PM EDT 07/28/2022 8:29 PM EDT Comment:Symptoms->Fever / Re spiratory Symptoms Narrative Resulting Agency Comment Spec In Lab Jamshid Collins MD MICROBIOLOGY - GENER AL ORDERABLES [facility] [place] [address] * CT Lumbar Spine w Contrast (07/28/2022 [...] who have questions please contact the health acute care assistant that requested your imaging first. ? Narrative [...] patients who have questions please contactthe health acute care assistant that requested your imaging first. Jamshid Collins MD IMG CT ORDERABLES * Differential, Automated (07/28/2022 5:02 AM EDT) Pathologist [facility] Neutrophils % 52.9 % [facility] Neutr Abs (ANC) 2.31 1.70 - 6.10 x10(3)/[facility] Lymphocytes % 34.3 % [facility] Lymphocytes Abs 1.5 0.9 - 3.2 x10(3)/[facility] Monocytes % 11.2 % [facility] Monocyte Abs 0.5 0.3 - 0.9 x10(3)/[facility] Eosinophils % 1.1 % [facility] Eosinophils Abs 0.0 0.0 - 0.4 x10(3)/[facility] Basophils % 0.5 % [facility] Basophils Abs 0.0 0.0 - 0.1 x10(3)/[facility] Immature Gran % 0.00 % [facility] Comment: Immature granulocytes(IG's)percentage and absolute count will include metamyelocytes, myelocytes, and promyelocytes. Blood smears from CBCs yielding IG's will be scanned manually for concordance. If this scan disagrees with the automated IG or if promyelocytes are noted, a manual differential will be performed. Debora Gran Abs 0.00 0.00 - 0.04 x10(3)/[facility] Blood 07/28/2022 5:02 AM EDT 07/28/2022 5:24 AM EDT Narrative Resulting Agency Comment Spec In Lab Jamshid Collins MD HEMATOLOGY ORDERABLE S [facility] [place] [address] * (ABNORMAL) Hemogram (07/28/2022 5:02 AM EDT) [facility] WBC 4.4 4.0 - 9.5 x10(3)/[facility] RBC 3.83(L) 4.00 - 5.21 x10(6)/[facility] Hemoglobin 9.5(L) 11.7 - 15.5 g/dL [facility] Hematocrit 30.3(L) 35.7 - 45.8 % [facility] MCV 79.1(L) 82.6 - 94.4 fL [facility] MCH 24.8(L) 27.1 - 32.0 pg [facility] MCHC 31.4(L) 31.7 - 35.0 g/dL [facility] Platelets 295 145 - 357 x10(3)/[facility] RDWSD 53.1(H) 37.0 - 46.0 fL [facility] RDWCV 18.3(H) 11.5 - 14.1 % [facility] MPV 9.5 7.6 - 12.9 fL [facility] nRBC % Auto 0.0 % [facility] nRBC Abs Auto 0.000 0.000 - 0.000 x10(3)/[facility] Blood 07/28/2022 5:02 AM EDT 07/28/2022 5:24 AM EDT Narrative Resulting Agency Comment Spec In Lab Jamshid Collins MD HEMATOLOGY ORDERABLE S [facility] [place] [address] * (ABNORMAL) CRP, acute inflammation (07/28/2022 5:02 AM EDT) Pathologist [facility] CRP 33.1(H) <=4.9 mg/L [facility] Blood 07/28/2022 5:02 AM EDT 07/28/2022 5:24 AM EDT Narrative Resulting Agency Comment Spec In Lab Jamshid Collins MD CHEMISTRY ORDERABLES [facility] [place] [address] * (ABNORMAL) Basic Metabolic Panel (non-fasting) (07/28/2022 5:02 AM EDT) Glucose Lvl 91 65 - 199 mg/dL [facility] Comment:Diabetes: >=200 mg/d L plus symptoms BUN 10 8 - 18 mg/dL [facility] Creatinine 0.28(L) 0.70 - 1.20 mg/dL [facility] Sodium 138 135 - 145 mmol/L [facility] Potassium 4.0 3.5 - 5.0 mmol/L [facility] Comment: Please note: ??Patients with WBC >100,000 may have falsely elevated Potassium levels. ??For accurate Potassium quantification in these patients send serum separator tube (gold top) for subsequent determinations. ??Contact the Clinical Chemistry Laboratory if there are any questions. Chloride 103 98 - 107 mmol/L [facility] CO2 25 22 - 31 mmol/L [facility] Anion Gap 10 5 - 15 mmol/L [facility] Calcium 8.8 8.5 - 10.5 mg/dL [facility] Estimated GFR 150 >=60 mL/min/1. 73 m?? [facility] Comment: This patient's estimated [...] Collins MD CHEMISTRY ORDERABLES Performing Organization Address City/[facility]/ZIP Co de Phone Number [facility] [place] [address] * Differential, Automated (07/27/2022 2:45 AM EDT) Neutrophils % 48.7 % [facility] Neutr Abs (ANC) 2.57 1.70 - 6.10 x10(3)/[facility] Lymphocytes % 40.6 % [facility] Lymphocytes Abs 2.1 0.9 - 3.2 x10(3)/[facility] Monocytes % 8.2 % [facility] Monocyte Abs 0.4 0.3 - 0.9 x10(3)/[facility] Eosinophils % 1.5 % [facility] Eosinophils Abs 0.1 0.0 - 0.4 x10(3)/[facility] Basophils % 0.8 % [facility] Basophils Abs 0.0 0.0 - 0.1 x10(3)/[facility] Immature Gran % 0.20 % [facility] Comment: Immature granulocytes(IG's)percentage and absolute count will include metamyelocytes, myelocytes, and promyelocytes. Blood smears from CBCs yielding IG's will be scanned manually for concordance. If this scan disagrees with the automated IG or if promyelocytes are noted, a manual differential will be performed. Debora Gran Abs 0.01 0.00 - 0.04 x10(3)/[facility] Blood 07/27/2022 2:45 AM EDT 07/27/2022 2:52 AM EDT Narrative Resulting Agency Comment Spec In Lab Jamshid Collins MD HEMATOLOGY ORDERABLE S [facility] [place] [address] * (ABNORMAL) Hemogram (07/27/2022 2:45 AM EDT) [facility] WBC 5.3 4.0 - 9.5 x10(3)/[facility] RBC 4.27 4.00 - 5.21 x10(6)/[facility] Hemoglobin 10.4(L) 11.7 - 15.5 g/dL [facility] Hematocrit 33.6(L) 35.7 - 45.8 % [facility] MCV 78.7(L) 82.6 - 94.4 fL [facility] MCH 24.4(L) 27.1 - 32.0 pg [facility] MCHC 31.0(L) 31.7 - 35.0 g/dL [facility] Platelets 350 145 - 357 x10(3)/[facility] RDWSD 52.4(H) 37.0 - 46.0 [facility] RDWCV 18.3(H) 11.5 - 14.1 % [facility] MPV 9.4 7.6 - 12.9 [facility] nRBC % Auto 0.0 % [facility] nRBC Abs Auto 0.000 0.000 - 0.000 x10(3)/[facility] Blood 07/27/2022 2:45 AM EDT 07/27/2022 2:52 AM EDT Narrative Resulting Agency Comment Spec In Lab Jamshid Collins [place] [address] * Lactate, whole blood, [place] lab [place] (07/27/2022 2:45 AM EDT) [facility] Lactate WB 1.2 0.5 - 2.2 mmol/L [facility] Blood 07/27/2022 2:45 AM EDT 07/27/2022 2:50 AM EDT Narrative Resulting Agency Comment Spec In Lab Shea Fox MD CHEMISTRY ORDERABLES Performing Organization Address [facility] Co de Phone Number [facility] [place] [address] * Magnesium (07/27/2022 2:45 AM EDT) Magnesium 0.78 0.69 - 1.07 mmol/L [facility] Blood 07/27/2022 2:45 AM EDT 07/27/2022 2:52 AM EDT Narrative Resulting Agency Comment Spec In Lab Sharron Winters MD CHEMISTRY ORDERABLES Performing Organization Address [facility] Co de Phone Number [facility] [place] [address] * (ABNORMAL) CRP, acute inflammation (07/27/2022 2:45 AM EDT) CRP 27.0(H) <=4.9 mg/L [facility] Blood 07/27/2022 2:45 AM EDT 07/27/2022 2:52 AM EDT Narrative Resulting Agency Comment Spec In Lab Jamshid Collins MD CHEMISTRY ORDERABLES Performing Organization Address [facility]/ZIP Co de Phone Number [facility] [place] [address] * (ABNORMAL) Sedimentation rate (07/27/2022 2:45 AM EDT) Sed Rate 105(H) 2 - 37 mm/hr [facility] Comment: Effective April 06, 2019 new capillary photometric technology has resulted in a change in reference ranges. It is recommended that each ESR result be reviewed with its own age appropriate reference range. Blood 07/27/2022 2:45 AM EDT 07/27/2022 2:52 AM EDT Narrative Resulting Agency Comment Spec In Lab Jamshid Collins MD HEMATOLOGY ORDERABLE S [facility] [place] [address] * (ABNORMAL) Basic Metabolic Panel (non-fasting) (07/27/2022 2:45 AM EDT) Glucose Lvl 105 65 - 199 mg/dL [facility] Comment:Diabetes: >=200 mg/d L plus symptoms BUN 12 8 - 18 mg/dL [facility] Creatinine 0.35(L) 0.70 - 1.20 mg/dL [facility] Sodium 139 135 - 145 mmol/L [facility] Potassium 4.1 3.5 - 5.0 mmol/L [facility] Comment: Please note: ??Patients with WBC >100,000 may have falsely elevated Potassium levels. ??For accurate Potassium quantification in these patients send serum separator tube (gold top) for subsequent determinations. ??Contact the Clinical Chemistry Laboratory if there are any questions. Chloride 103 98 - 107 mmol/L [facility] CO2 25 22 - 31 mmol/L [facility] Anion Gap 11 5 - 15 mmol/L [facility] Calcium 9.3 8.5 - 10.5 mg/dL [facility] Estimated GFR 142 >=60 mL/min/1. 73 m?? [facility] Comment: This patient's estimated [...] In Lab Jamshid Collins MD CHEMISTRY ORDERABLES [facility] [place] [address] * Differential, Automated (07/26/2022 4:46 AM EDT) Neutrophils % 46.4 % [facility] Neutr Abs (ANC) 2.25 1.70 - 6.10 x10(3)/[facility] Lymphocytes % 43.0 % [facility] Lymphocytes Abs 2.1 0.9 - 3.2 x10(3)/[facility] Monocytes % 8.0 % [facility] Monocyte Abs 0.4 0.3 - 0.9 x10(3)/[facility] Eosinophils % 1.6 % [facility] Eosinophils Abs 0.1 0.0 - 0.4 x10(3)/[facility] Basophils % 0.8 % [facility] Basophils Abs 0.0 0.0 - 0.1 x10(3)/[facility] Immature Gran % 0.20 % [facility] Comment: Immature granulocytes(IG's)percentage and absolute count will include metamyelocytes, myelocytes, and promyelocytes. Blood smears from CBCs yielding IG's will be scanned manually for concordance. If this scan disagrees with the automated IG or if promyelocytes are noted, a manual differential will be performed. Debora Gran Abs 0.01 0.00 - 0.04 x10(3)/[facility] Blood 07/26/2022 4:46 AM EDT 07/26/2022 5:23 AM EDT Narrative Resulting Agency Comment Spec In Lab Jamshid Collins MD HEMATOLOGY ORDERABLE S Performing Organization Address City/[facility]/ZIP Co de Phone Number [facility] [place] [address] * (ABNORMAL) Hemogram (07/26/2022 4:46 AM EDT) WBC 4.9 4.0 - 9.5 x10(3)/[facility] RBC 4.07 4.00 - 5.21 x10(6)/[facility] Hemoglobin 10.1(L) 11.7 - 15.5 g/dL [facility] Hematocrit 31.9(L) 35.7 - 45.8 % [facility] MCV 78.4(L) 82.6 - 94.4 fL [facility] MCH 24.8(L) 27.1 - 32.0 pg [facility] MCHC 31.7 31.7 - 35.0 g/dL [facility] Platelets 348 145 - 357 x10(3)/[facility] RDWSD 52.4(H) 37.0 - 46.0 [facility] RDWCV 18.3(H) 11.5 - 14.1 % [facility] MPV 9.6 7.6 - 12.9 [facility] nRBC % Auto 0.0 % [facility] nRBC Abs Auto 0.000 0.000 - 0.000 x10(3)/[facility] Blood 07/26/2022 4:46 AM EDT 07/26/2022 5:23 AM EDT Narrative Resulting Agency Comment Spec In Lab Jamshid Collins MD HEMATOLOGY ORDERABLE S Performing Organization Address City/[facility]/ZIP Co de Phone Number [facility] [place] [address] * (ABNORMAL) Sedimentation rate (07/26/2022 4:46 AM EDT) Pathologist [facility] Sed Rate 102(H) 2 - 37 mm/hr [facility] Comment: Effective April 06, 2019 new capillary photometric technology has resulted in a change in reference ranges. It is recommended that each ESR result be reviewed with its own age appropriate reference range. Blood 07/26/2022 4:46 AM EDT 07/26/2022 5:23 AM EDT Narrative Resulting Agency Comment Spec In Lab Jamshid Collins MD HEMATOLOGY ORDERABLE S Performing Organization Address [facility]/ZIP Co de Phone Number [facility] [place] [address] * (ABNORMAL) CRP, acute inflammation (07/26/2022 4:46 AM EDT) [facility] CRP 40.5(H) <=4.9 mg/L [facility] Blood 07/26/2022 4:46 AM EDT 07/26/2022 5:23 AM EDT Narrative Resulting Agency Comment Spec In Lab Jamshid Collins MD CHEMISTRY ORDERABLES Performing Organization Address [facility]/ZIP Co de Phone Number [facility] [place] [address] * (ABNORMAL) Basic Metabolic Panel (non-fasting) (07/26/2022 4:46 AM EDT) [facility] Glucose Lvl 100 65 - 199 mg/dL [facility] Comment:Diabetes: >=200 mg/d L plus symptoms BUN 13 8 - 18 mg/dL [facility] Creatinine 0.25(L) 0.70 - 1.20 mg/dL [facility] Sodium 139 135 - 145 mmol/L [facility] Potassium 3.8 3.5 - 5.0 mmol/L [facility] Comment: Please note: ??Patients with WBC >100,000 may have falsely elevated Potassium levels. ??For accurate Potassium quantification in these patients send serum separator tube (gold top) for subsequent determinations. ??Contact the Clinical Chemistry Laboratory if there are any questions. Chloride 103 98 - 107 mmol/L [facility] CO2 23 22 - 31 mmol/L [facility] Anion Gap 13 5 - 15 mmol/L [facility] Calcium 9.4 8.5 - 10.5 mg/dL [facility] Estimated GFR 154 >=60 mL/min/1. 73 m?? [facility] Comment: This patient's estimated [...] In Lab Jamshid Collins MD CHEMISTRY ORDERABLES [facility] [place] [address] * EKG 12 Lead (07/25/2022 12:42 PM EDT) Ventricular rate 106 BPM MUSE SYSTEM Atrial Rate 106 BPM MUSE SYSTEM P-R Interval 120 ms MUSE SYSTEM QRS Duration 74 ms MUSE SYSTEM Q-T Interval 328 ms MUSE SYSTEM QTC Calculated (Bezet) 435 ms MUSE SYSTEM Calculated P [place] 22 degrees MUSE SYSTEM Calculated R [place] 7 degrees MUSE SYSTEM Calculated T [place] 25 degrees MUSE SYSTEM INTERPRETATION Sinus tachycardia Possible Inferior infarct (cited on or before 07-JUL-2022) Abnormal ECG When compared with ECG of 07-JUL-2022 11:44, Nonspecific T wave abnormality no longer evident in Anterior leads Confirmed by MD Chowdary Daniel ([id number]) on 08/07/2022 5:45:44 PM MUSE SYSTEM 07/25/2022 12:4 2 PM EDT 08/07/2022 5:45 PM EDT Jamshid Collins MD ECG ORDERABLES Performing Organization Address City/[facility]/ZIP Co de Phone Number MUSE SYSTEM * Differential, Automated (07/25/2022 4:37 AM EDT) Neutrophils % 54.4 % [facility] Neutr Abs (ANC) 2.66 1.70 - 6.10 x10(3)/[facility] Lymphocytes % 35.0 % [facility] Lymphocytes Abs 1.7 0.9 - 3.2 x10(3)/[facility] Monocytes % 8.6 % [facility] Monocyte Abs 0.4 0.3 - 0.9 x10(3)/[facility] Eosinophils % 1.0 % [facility] Eosinophils Abs 0.0 0.0 - 0.4 x10(3)/[facility] Basophils % 0.6 % [facility] Basophils Abs 0.0 0.0 - 0.1 x10(3)/[facility] Immature Gran % 0.40 % [facility] Comment: Immature granulocytes(IG's)percentage and absolute count will include metamyelocytes, myelocytes, and promyelocytes. Blood smears from CBCs yielding IG's will be scanned manually for concordance. If this scan disagrees with the automated IG or if promyelocytes are noted, a manual differential will be performed. Debora Gran Abs 0.02 0.00 - 0.04 x10(3)/[facility] Blood 07/25/2022 4:37 AM EDT 07/25/2022 4:50 AM EDT Narrative Resulting Agency Comment Spec In Lab Eddi Vázquez MD HEMATOLOGY ORDERABLE S [facility] [place] [address] * (ABNORMAL) Hemogram (07/25/2022 4:37 AM EDT) [facility] [facility] 4.9 4.0 - 9.5 x10(3)/[facility] RBC 4.16 4.00 - 5.21 x10(6)/[facility] Hemoglobin 10.3(L) 11.7 - 15.5 g/dL [facility] Hematocrit 32.6(L) 35.7 - 45.8 % [facility] MCV 78.4(L) 82.6 - 94.4 fL [facility] MCH 24.8(L) 27.1 - 32.0 pg [facility] MCHC 31.6(L) 31.7 - 35.0 g/dL [facility] Platelets 357 145 - 357 x10(3)/[facility] RDWSD 52.5(H) 37.0 - 46.0 [facility] RDWCV 18.5(H) 11.5 - 14.1 % [facility] MPV 9.6 7.6 - 12.9 [facility] nRBC % Auto 0.0 % [facility] nRBC Abs Auto 0.000 0.000 - 0.000 x10(3)/[facility] Blood 07/25/2022 4:37 AM EDT 07/25/2022 4:50 AM EDT Narrative Resulting Agency Comment Spec In Lab Eddi Vázquez MD HEMATOLOGY ORDERABLE S [facility] [place] [address] * (ABNORMAL) Basic Metabolic Panel (non-fasting) (07/25/2022 4:37 AM EDT) [facility] Glucose Lvl 99 65 - 199 mg/dL [facility] Comment:Diabetes: >=200 mg/d L plus symptoms BUN 13 8 - 18 mg/dL [facility] Creatinine 0.49(L) 0.70 - 1.20 mg/dL [facility] Sodium 138 135 - 145 mmol/L [facility] Potassium 3.9 3.5 - 5.0 mmol/L [facility] Comment: Please note: ??Patients with WBC >100,000 may have falsely elevated Potassium levels. ??For accurate Potassium quantification in these patients send serum separator tube (gold top) for subsequent determinations. ??Contact the Clinical Chemistry Laboratory if there are any questions. Chloride 105 98 - 107 mmol/L [facility] CO2 23 22 - 31 mmol/L [facility] Anion Gap 10 5 - 15 mmol/L [facility] Calcium 8.9 8.5 - 10.5 mg/dL [facility] Estimated GFR 131 >=60 mL/min/1. 73 m?? [facility] Comment: This patient's estimated [...] In Lab Eddi Vázquez MD CHEMISTRY ORDERABLES [facility] [place] [address] * IR All Drainage Procedures (07/24/2022 4:02 PM EDT) Anatomical Region Laterality Modality X-Ray Angiograph y Impressions 07/25/2022 8:08 AM EDT Percutaneous placement of a 10 German drainage catheter into subcutaneous collection adjacent to RIGHT SI joint screw, yielding 5 mL of bloody fluid. Percutaneous placement of a 8 German drainage catheter into subcutaneous collection adjacent to [...] who have questions please contact the health acute care assistant that requested your imaging first. ? Narrative 07/25/2022 8:08 AM EDT PROCEDURE: Drainage catheter placement x2 Procedural Personnel Attending physician(s): Anurag Kumar MD Fellow physician(s): None Resident physician(s): Lucho Burcaiga MD Advanced practice provider(s): None Pre-procedure diagnosis: [...] complications. IMPRESSION Percutaneous placement of a 10 German drainage catheter intosubcutaneous collection adjacent to RIGHT SI joint screw, yielding 5 mL of bloodyfluid. Percutaneous placement of a 8 German drainage catheter into subcutaneous collection adjacent to [...] patients who have questions please contactthe health acute care assistant that requested your imaging first. Ernesto Willingham MD IMG IR ORDERABLES * Anaerobic Culture (07/24/2022 3:47 PM EDT) Anaerobic Culture No anaerobic organisms isolated [facility] Fluid 07/24/2022 3:47 PM EDT 07/24/2022 4:43 PM EDT Comment:SI/L5 Narrative Resulting Agency Comment Spec In Lab Anurag Kumar MD MICROBIOLOGY - GEN ERAL ORDERABLES [facility] [place] [address] * Crystal Exam Body Fluid Other (07/24/2022 3:47 PM EDT) Crystal BF Type Other [facility] Comment: Interpret with caution due to questionable sample integrity caused by sample age. Results may be inaccurate due to presence of many degenerated cells. Crystal BF None Seen [facility] Other 07/24/2022 3:47 PM EDT 07/24/2022 4:31 PM EDT Narrative Resulting Agency Comment Spec In Lab Anurag Kumar MD BODY FLUIDS AND ST OOLS ORDERABLES [facility] [place] [address] * Cell Count Body Fluid Other (07/24/2022 3:47 PM EDT) Spec Type BF Other [facility] Comment: Interpret with caution due to questionable sample integrity caused by sample age. Results may be inaccurate due to presence of many degenerated cells. Called by: millicent, Read back by: carlin alejo, Date/Time:07/24/22 17:51. Color BF Red [facility] Comment: Interpret with caution due to questionable sample integrity caused by sample age. Results may be inaccurate due to presence of many degenerated cells. Appearance BF Cloudy [facility] Comment: Interpret with caution due to questionable sample integrity caused by sample age. Results may be inaccurate due to presence of many degenerated cells. WBC BF Ct Not Perf [facility] Comment: Interpret with caution due to questionable sample integrity caused by sample age. Results may be inaccurate due to presence of many degenerated cells. All body fluid results should always be interpreted in light of the total clinical presentation of the patient, including clinical history, data from additional tests and other appropriate information. Polymorph % Not Perf [facility] Comment: Interpret with caution due to questionable sample integrity caused by sample age. Results may be inaccurate due to presence of many degenerated cells. Polymorphonuclear cell percent and absolute values may contain Neutrophils, Eosinophils, and Basophils. Body fluid smear will be scanned manually for concordance. Mononuc % Not Perf [facility] Comment: Interpret with caution due to questionable sample integrity caused by sample age. Results may be inaccurate due to presence of many degenerated cells. Mononuclear cell percent and absolute values may contain Lymphocytes and Monocytes. Body fluid smear will be scanned manually for concordance. Polymorph BF ABS Not Perf [facility] Comment: Interpret with caution due to questionable sample integrity caused by sample age. Results may be inaccurate due to presence of many degenerated cells. Polymorphonuclear cell percent and absolute values may contain Neutrophils, Eosinophils, and Basophils. Body fluid smear will be scanned manually for concordance. Mononuc ABS Not Perf [facility] Comment: Interpret with caution [...] MD BODY FLUIDS AND ST OOLS ORDERABLES [facility] [place] [address] * Abscess/Wound Aspirate Culture Abscess; Pelvic (07/24/2022 3:47 PM EDT) Abscess/Wound Aspirate Culture No growth [facility] Gram Stain Many Neutrophils seen No microorganisms seen. [facility] Abscess [facility] / Unknown 07/24/2022 3:47 PM EDT 07/24/2022 4:43 PM EDT Comment:SI/L5 Narrative Resulting Agency Comment Spec In Lab Anurag Kumar MD MICROBIOLOGY - GEN ERAL ORDERABLES Performing Organization Address [facility] Co de Phone Number [facility] [place] [address] * AFB culture (07/24/2022 3:22 PM EDT) Acid Fast Bacilli Culture No Acid Fast Bacilli isolated [facility] Acid Fast Stain No Acid Fast Bacilli seen [facility] Vertebra LUMBAR SPINE STRUCTURE / Unknown 07/24/2022 3:22 PM EDT 07/27/2022 12:32 PM EDT Comment:LUMBAR ABSCESS Narrative Resulting Agency Comment Spec In Lab Jamshid Collins MD MICROBIOLOGY - GENER AL ORDERABLES Performing Organization Address [facility] Co de Phone Number [facility] [place] [address] * Calcofluor White Stain (07/24/2022 3:22 PM EDT) Calcofluor Stain Calcofluor White Preparation: Negative [facility] Abscess LUMBAR SPINE STRUCTURE / Unknown 07/24/2022 3:22 PM EDT 07/27/2022 12:30 PM EDT Comment:Lumbar abscess Narrative Resulting Agency Comment Spec In Lab Jamshid Collins MD MICROBIOLOGY - GENER AL ORDERABLES Performing Organization Address City/[facility] Co de Phone Number [facility] [place] [address] * Fungus culture (07/24/2022 3:22 PM EDT) Fungus Culture No Fungus isolated [facility] Abscess LUMBAR SPINE STRUCTURE / Unknown 07/24/2022 3:22 PM EDT 07/27/2022 12:30 PM EDT Comment:Lumbar abscess Narrative Resulting Agency Comment Spec In Lab Jamshid Collins MD MICROBIOLOGY - GENER AL ORDERABLES Performing Organization Address [facility]/ZIP Co de Phone Number [facility] [place] [address] * Anaerobic Culture (07/24/2022 3:22 PM EDT) Anaerobic Culture No anaerobic organisms isolated [facility] Fluid 07/24/2022 3:22 PM EDT 07/24/2022 4:44 PM EDT Comment:Lumbar abscess Narrative Resulting Agency Comment Spec In Lab Mal Menchaca MD MICROBIOLOGY - GENER AL ORDERABLES Performing Organization Address [facility] Co de Phone Number [facility] [place] [address] * Body Fluid Culture, Aerobic (07/24/2022 3:22 PM EDT) Body Fluid Culture No growth [facility] Gram Stain Few Neutrophils seen No microorganisms seen. [facility] Fluid 07/24/2022 3:22 PM EDT 07/24/2022 4:44 PM EDT Comment:Lumbar abscess Narrative Resulting Agency Comment Spec In Lab Mal Menchaca MD MICROBIOLOGY - GENER AL ORDERABLES Performing Organization Address [facility] Co de Phone Number [facility] [place] [address] * Crystal Exam Body Fluid Other (07/24/2022 3:22 PM EDT) Crystal BF Type Other [facility] Comment: Interpret with caution due to questionable sample integrity caused by sample age. Results may be inaccurate due to presence of many degenerated cells. Crystal BF None Seen [facility] Other 07/24/2022 3:22 PM EDT 07/24/2022 4:34 PM EDT Narrative Resulting Agency Comment Spec In Lab Ernesto Willingham MD BODY FLUIDS AND STOO LS ORDERABLES [facility] [place] [address] * Cell Count Body Fluid Other (07/24/2022 3:22 PM EDT) Spec Type BF Other [facility] Comment: Interpret with caution due to questionable sample integrity caused by sample age. Results may be inaccurate due to presence of many degenerated cells. Called by: millicent, Read back by: carlin alejo, Date/Time:07/24/22 17:51. Color BF Red [facility] Comment: Interpret with caution due to questionable sample integrity caused by sample age. Results may be inaccurate due to presence of many degenerated cells. Appearance BF Cloudy [facility] Comment: Interpret with caution due to questionable sample integrity caused by sample age. Results may be inaccurate due to presence of many degenerated cells. WBC BF Ct Not Perf [facility] Comment: Interpret with caution due to questionable sample integrity caused by sample age. Results may be inaccurate due to presence of many degenerated cells. All body fluid results should always be interpreted in light of the total clinical presentation of the patient, including clinical history, data from additional tests and other appropriate information. Polymorph % Not Perf [facility] Comment: Interpret with caution due to questionable sample integrity caused by sample age. Results may be inaccurate due to presence of many degenerated cells. Polymorphonuclear cell percent and absolute values may contain Neutrophils, Eosinophils, and Basophils. Body fluid smear will be scanned manually for concordance. Mononuc % Not Perf [facility] Comment: Interpret with caution due to questionable sample integrity caused by sample age. Results may be inaccurate due to presence of many degenerated cells. Mononuclear cell percent and absolute values may contain Lymphocytes and Monocytes. Body fluid smear will be scanned manually for concordance. Polymorph BF ABS Not Perf [facility] Comment: Interpret with caution due to questionable sample integrity caused by sample age. Results may be inaccurate due to presence of many degenerated cells. Polymorphonuclear cell percent and absolute values may contain Neutrophils, Eosinophils, and Basophils. Body fluid smear will be scanned manually for concordance. Mononuc ABS Not Perf [facility] Comment: Interpret with caution [...] Lab Ernesto Willingham MD BODY FLUIDS AND FARNAZ [place] ORDERABLES [facility] [place] [address] * Differential, Automated (07/24/2022 5:25 AM EDT) Neutrophils % 46.6 % [facility] Neutr Abs (ANC) 2.04 1.70 - 6.10 x10(3)/[facility] Lymphocytes % 42.9 % [facility] Lymphocytes Abs 1.9 0.9 - 3.2 x10(3)/[facility] Monocytes % 8.0 % [facility] Monocyte Abs 0.4 0.3 - 0.9 x10(3)/[facility] Eosinophils % 1.8 % [facility] Eosinophils Abs 0.1 0.0 - 0.4 x10(3)/[facility] Basophils % 0.7 % [facility] Basophils Abs 0.0 0.0 - 0.1 x10(3)/[facility] Immature Gran % 0.00 % [facility] Comment: Immature granulocytes(IG's)percentage and absolute count will include metamyelocytes, myelocytes, and promyelocytes. Blood smears from CBCs yielding IG's will be scanned manually for concordance. If this scan disagrees with the automated IG or if promyelocytes are noted, a manual differential will be performed. Debora Gran Abs 0.00 0.00 - 0.04 x10(3)/[facility] Blood 07/24/2022 5:25 AM EDT 07/24/2022 5:57 AM EDT Narrative Resulting Agency Comment Spec In Lab Eddi Vázquez MD HEMATOLOGY ORDERABLE S [facility] [place] [address] * (ABNORMAL) Hemogram (07/24/2022 5:25 AM EDT) WBC 4.4 4.0 - 9.5 x10(3)/[facility] RBC 3.92(L) 4.00 - 5.21 x10(6)/[facility] Hemoglobin 9.6(L) 11.7 - 15.5 g/dL [facility] Hematocrit 31.4(L) 35.7 - 45.8 % [facility] MCV 80.1(L) 82.6 - 94.4 fL [facility] MCH 24.5(L) 27.1 - 32.0 pg [facility] MCHC 30.6(L) 31.7 - 35.0 g/dL [facility] Platelets 343 145 - 357 x10(3)/[facility] RDWSD 54.7(H) 37.0 - 46.0 [facility] RDWCV 18.7(H) 11.5 - 14.1 % [facility] MPV 9.5 7.6 - 12.9 [facility] nRBC % Auto 0.0 % [facility] nRBC Abs Auto 0.000 0.000 - 0.000 x10(3)/[facility] Blood 07/24/2022 5:25 AM EDT 07/24/2022 5:57 AM EDT Narrative Resulting Agency Comment Spec In Lab Eddi Vázquez MD HEMATOLOGY ORDERABLE S [facility] [place] [address] * (ABNORMAL) Basic Metabolic Panel (non-fasting) (07/24/2022 5:25 AM EDT) Glucose Lvl 89 65 - 199 mg/dL [facility] Comment:Diabetes: >=200 mg/d L plus symptoms BUN 11 8 - 18 mg/dL [facility] Creatinine 0.34(L) 0.70 - 1.20 mg/dL [facility] Sodium 138 135 - 145 mmol/L [facility] Potassium 3.9 3.5 - 5.0 mmol/L [facility] Comment: Please note: ??Patients with WBC >100,000 may have falsely elevated Potassium levels. ??For accurate Potassium quantification in these patients send serum separator tube (gold top) for subsequent determinations. ??Contact the Clinical Chemistry Laboratory if there are any questions. Chloride 104 98 - 107 mmol/L [facility] CO2 23 22 - 31 mmol/L [facility] Anion Gap 11 5 - 15 mmol/L [facility] Calcium 9.1 8.5 - 10.5 mg/dL [facility] Estimated GFR 143 >=60 mL/min/1. 73 m?? [facility] Comment: This patient's estimated [...] In Lab Eddi Vázquez MD CHEMISTRY ORDERABLES Performing Organization Address City/[facility]/ZIP Co de Phone Number [facility] [place] [address] * Differential, Automated (07/23/2022 3:00 AM EDT) Neutrophils % 50.7 % [facility] Neutr Abs (ANC) 3.15 1.70 - 6.10 x10(3)/[facility] Lymphocytes % 40.3 % [facility] Lymphocytes Abs 2.5 0.9 - 3.2 x10(3)/[facility] Monocytes % 7.2 % [facility] Monocyte Abs 0.4 0.3 - 0.9 x10(3)/[facility] Eosinophils % 1.1 % [facility] Eosinophils Abs 0.1 0.0 - 0.4 x10(3)/[facility] Basophils % 0.5 % [facility] Basophils Abs 0.0 0.0 - 0.1 x10(3)/[facility] Immature Gran % 0.20 % [facility] Comment: Immature granulocytes(IG's)percentage and absolute count will include metamyelocytes, myelocytes, and promyelocytes. Blood smears from CBCs yielding IG's will be scanned manually for concordance. If this scan disagrees with the automated IG or if promyelocytes are noted, a manual differential will be performed. Debora Gran Abs 0.01 0.00 - 0.04 x10(3)/[facility] Blood 07/23/2022 3:00 AM EDT 07/23/2022 3:02 AM EDT Narrative Resulting Agency Comment Spec In Lab Eddi Vázquez MD HEMATOLOGY ORDERABLE S Performing Organization Address City/[facility]/ZIP Co de Phone Number [facility] [place] [address] * (ABNORMAL) Hemogram (07/23/2022 3:00 AM EDT) Pathologist [facility] WBC 6.2 4.0 - 9.5 x10(3)/[facility] RBC 4.19 4.00 - 5.21 x10(6)/[facility] Hemoglobin 10.5(L) 11.7 - 15.5 g/dL [facility] Hematocrit 32.7(L) 35.7 - 45.8 % [facility] MCV 78.0(L) 82.6 - 94.4 fL [facility] MCH 25.1(L) 27.1 - 32.0 pg [facility] MCHC 32.1 31.7 - 35.0 g/dL [facility] Platelets 364(H) 145 - 357 x10(3)/[facility] RDWSD 53.3(H) 37.0 - 46.0 [facility] RDWCV 18.6(H) 11.5 - 14.1 % [facility] MPV 9.0 7.6 - 12.9 [facility] nRBC % Auto 0.0 % [facility] nRBC Abs Auto 0.000 0.000 - 0.000 x10(3)/[facility] Blood 07/23/2022 3:00 AM EDT 07/23/2022 3:02 AM EDT Narrative Resulting Agency Comment Spec In Lab Eddi Vázquez MD HEMATOLOGY ORDERABLE S [facility] [place] [address] * (ABNORMAL) Basic Metabolic Panel (non-fasting) (07/23/2022 3:00 AM EDT) [facility] Glucose Lvl 101 65 - 199 mg/dL [facility] Comment:Diabetes: >=200 mg/d L plus symptoms BUN 9 8 - 18 mg/dL [facility] Creatinine 0.31(L) 0.70 - 1.20 mg/dL [facility] Sodium 141 135 - 145 mmol/L [facility] Potassium 3.6 3.5 - 5.0 mmol/L [facility] Comment: Please note: ??Patients with WBC >100,000 may have falsely elevated Potassium levels. ??For accurate Potassium quantification in these patients send serum separator tube (gold top) for subsequent determinations. ??Contact the Clinical Chemistry Laboratory if there are any questions. Chloride 105 98 - 107 mmol/L [facility] CO2 23 22 - 31 mmol/L [facility] Anion Gap 13 5 - 15 mmol/L [facility] Calcium 8.9 8.5 - 10.5 mg/dL [facility] Estimated GFR 146 >=60 mL/min/1. 73 m?? [facility] Comment: This patient's estimated [...] In Lab Eddi Vázquez MD CHEMISTRY ORDERABLES [facility] [place] [address] * Blood culture (07/22/2022 10:47 PM EDT) Blood Culture No growth at 5 days. [facility] Blood VENOUS CATHETER / Unknown 07/22/2022 10:47 PM EDT 07/22/2022 10:48 PM EDT Comment:add-on Narrative Resulting Agency Comment Spec In Lab Samuel Comer MD MICROBIOLOGY - BLOOD ORDERABLES Performing Organization Address [facility] Co de Phone Number [facility] [place] [address] * Anaerobic Culture (07/22/2022 9:30 PM EDT) Anaerobic Culture No anaerobic organisms isolated [facility] Fluid 07/22/2022 9:30 PM EDT 07/22/2022 9:45 PM EDT Narrative Resulting Agency Comment Spec In Lab Samuel Comer MD MICROBIOLOGY - GENER AL ORDERABLES Performing Organization Address [facility] de Phone Number [facility] [place] [address] * Body Fluid Culture, Aerobic (07/22/2022 9:30 PM EDT) Body Fluid Culture No growth to date. [facility] Gram Stain Many Neutrophils seen No microorganisms seen. [facility] Fluid 07/22/2022 9:30 PM EDT 07/22/2022 9:45 PM EDT Narrative Resulting Agency Comment Spec In Lab Samuel Comer MD MICROBIOLOGY - GENER AL ORDERABLES Performing Organization Address [facility] de Phone Number [facility] [place] [address] * Cell Count Body Fluid Other (07/22/2022 9:30 PM EDT) Spec Type BF Other [facility] Color BF Red [facility] Appearance BF Clotted [facility] WBC BF Ct Clotted [facility] Comment: Called by: CHARLEY, Read back by: Yarelis Galdamez, Date/Time:07/22/22 21:56. All body fluid results should always be interpreted in light of the total clinical presentation of the patient, including clinical history, data from additional tests and other appropriate information. Polymorph % Clotted % [facility] Comment: Polymorphonuclear cell percent and absolute values may contain Neutrophils, Eosinophils, and Basophils. Body fluid smear will be scanned manually for concordance. Mononuc % Clotted % [facility] Comment: Mononuclear cell percent and absolute values may contain Lymphocytes and Monocytes. Body fluid smear will be scanned manually for concordance. Polymorph BF ABS Clotted /mcl [facility] Comment: Polymorphonuclear cell percent and absolute values may contain Neutrophils, Eosinophils, and Basophils. Body fluid smear will be scanned manually for concordance. Mononuc ABS Clotted /mcl [facility] Comment: Mononuclear cell percent and absolute values may contain Lymphocytes and Monocytes. Body fluid smear will be scanned manually for concordance. Other 07/22/2022 9:30 PM EDT 07/22/2022 9:38 PM EDT Narrative Resulting Agency Comment Spec In Lab Alek Tavares MD BODY FLUIDS AND STOO LS ORDERABLES [facility] [place] [address] * Blood culture (07/22/2022 9:15 PM EDT) Blood Culture No growth at 5 days. [facility] Blood 07/22/2022 9:15 PM EDT 07/22/2022 9:29 PM EDT Comment:L AC Narrative Resulting Agency Comment Spec In Lab Alek Tavares MD MICROBIOLOGY - BLOOD ORDERABLES Performing Organization Address [facility]/ZIP Co de Phone Number [facility] [place] [address] * CT Lumbar Spine w Contrast (07/22/2022 [...] who have questions please contact the health acute care assistant that requested your imaging first. ? Electronically signed by: Jamaal Villafuerte [facility] ([phone]), at 07/22/2022 8:03 PM Narrative 07/22/2022 8:03 [...] patients who have questions please contactthe health acute care assistant that requested your imaging first. Marie Telles MD [facility] ORDERABLES * Differential, Automated (07/22/2022 7:12 PM EDT) Pathologist [facility] Neutrophils % 53.7 % [facility] Neutr Abs (ANC) 3.01 1.70 - 6.10 x10(3)/[facility] Lymphocytes % 37.4 % [facility] Lymphocytes Abs 2.1 0.9 - 3.2 x10(3)/[facility] Monocytes % 6.2 % [facility] Monocyte Abs 0.4 0.3 - 0.9 x10(3)/[facility] Eosinophils % 1.4 % [facility] Eosinophils Abs 0.1 0.0 - 0.4 x10(3)/[facility] Basophils % 1.1 % [facility] Basophils Abs 0.1 0.0 - 0.1 x10(3)/[facility] Immature Gran % 0.20 % [facility] Comment: Immature granulocytes(IG's)percentage and absolute count will include metamyelocytes, myelocytes, and promyelocytes. Blood smears from CBCs yielding IG's will be scanned manually for concordance. If this scan disagrees with the automated IG or if promyelocytes are noted, a manual differential will be performed. Debora Gran Abs 0.01 0.00 - 0.04 x10(3)/[facility] Blood 07/22/2022 7:12 PM EDT 07/22/2022 7:21 PM EDT Narrative Resulting Agency Comment Spec In Lab Phyllis SIMMS HEMATOLOGY ORDERABLE S [facility] [place] [address] * (ABNORMAL) Hemogram (07/22/2022 7:12 PM EDT) Pathologist [facility] WBC 5.6 4.0 - 9.5 x10(3)/[facility] RBC 4.58 4.00 - 5.21 x10(6)/[facility] Hemoglobin 11.2(L) 11.7 - 15.5 g/dL [facility] Hematocrit 36.2 35.7 - 45.8 % [facility] MCV 79.0(L) 82.6 - 94.4 fL [facility] MCH 24.5(L) 27.1 - 32.0 pg [facility] MCHC 30.9(L) 31.7 - 35.0 g/dL [facility] Platelets 449(H) 145 - 357 x10(3)/[facility] RDWSD 52.9(H) 37.0 - 46.0 fL [facility] RDWCV 18.3(H) 11.5 - 14.1 % [facility] MPV 9.2 7.6 - 12.9 [facility] nRBC % Auto 0.0 % [facility] nRBC Abs Auto 0.000 0.000 - 0.000 x10(3)/[facility] Blood 07/22/2022 7:12 PM EDT 07/22/2022 7:21 PM EDT Narrative Resulting Agency Comment Spec In Lab Phyllis SIMMS HEMATOLOGY ORDERABLE S [facility] [place] [address] * (ABNORMAL) CRP, acute inflammation (07/22/2022 7:12 PM EDT) Pathologist [facility] CRP 48.9(H) <=4.9 mg/L [facility] Blood 07/22/2022 7:12 PM EDT 07/22/2022 7:21 PM EDT Narrative Resulting Agency Comment Spec In Lab Amarilis Carcamo DO CHEMISTRY O RDERABLES Performing Organization Address [facility] Co de Phone Number [facility] [place] [address] * (ABNORMAL) Sedimentation rate (07/22/2022 7:12 PM EDT) Sed Rate >119(H) 2 - 37 mm/hr [facility] Comment: Effective April 06, 2019 new capillary photometric technology has resulted in a change in reference ranges. It is recommended that each ESR result be reviewed with its own age appropriate reference range. Blood 07/22/2022 7:12 PM EDT 07/22/2022 7:21 PM EDT Narrative Resulting Agency Comment Spec In Lab Amarilis Carcamo DO HEMATOLOGY ORDERABLES Performing Organization Address [facility] Co de Phone Number [facility] [place] [address] * (ABNORMAL) Basic Metabolic Panel (non-fasting) (07/22/2022 7:12 PM EDT) Glucose Lvl 99 65 - 199 mg/dL [facility] Comment:Diabetes: >=200 mg/d L plus symptoms BUN 10 8 - 18 mg/dL [facility] Creatinine 0.34(L) 0.70 - 1.20 mg/dL [facility] Sodium 139 135 - 145 mmol/L [facility] Potassium 3.8 3.5 - 5.0 mmol/L [facility] Comment: Please note: ??Patients with WBC >100,000 may have falsely elevated Potassium levels. ??For accurate Potassium quantification in these patients send serum separator tube (gold top) for subsequent determinations. ??Contact the Clinical Chemistry Laboratory if there are any questions. Chloride 103 98 - 107 mmol/L [facility] CO2 26 22 - 31 mmol/L [facility] Anion Gap 10 5 - 15 mmol/L [facility] Calcium 9.4 8.5 - 10.5 mg/dL [facility] Estimated GFR 143 >=60 mL/min/1. 73 m?? [facility] Comment: This patient's estimated [...] In Lab Marie Telles MD CHEMISTRY ORDERABLES Performing Organization Address City/State/[facility] Co de Phone Number [facility] [place] [address] documented in this encounter Visit Diagnoses Diagnosis [...] ONCE, 1 dose, On Thu07/23/22 at 0648 New Bag 07/23/2022 6:48 AM EDT lactated Ringers 1,000 [...] Thu07/23/22 at 1110, Until Thu07/24/22 at 1109 New Bag 07/24/2022 5:00 AM EDT 100 mL/hr 100 mL/hr Rate/Dose Change 07/24/2022 12:54 AM EDT 100 mL/hr 100 mL /hr New Bag 07/23/2022 12:44 PM EDT 50 mL/hr 50 mL/hr lactated ringers infusion 100 mL/hr, Intravenous, CONTINUOUS, Starting on Thu07/28/22 at 1245, Until Thu07/29/22 at 0344 New Bag 07/28/2022 10:12 PM EDT 100 mL/hr 100 mL/hr New Bag 07/28/2022 12:00 PM EDT 100 mL/hr 100 [...] 10 mL, Intra-articular, ONCE, 1 dose, On Thu07/22/22 at 2111, Warning Vesicant/Irritant Medication , Routine Given 07/22/2022 9:11 PM EDT 10 mLs magnesium sulfate 2 g in sterile water 50 mL infusion 2 g, Intravenous, ONCE, 1 dose, On Thu07/29/22 at 0130, Administer over 120 Minutes New [...] on Thu07/23/22 at 0900, Until Discontinued, Routine 0819 (Given - Provider: Boldelia Hair RN)2028 (Given - Provider: Paige Gonzalez RN) 0857 (Given - Provider: Jimbo Willams RN)2105 (Given [...] appropriate choice: ID Approval by Sergey Aguirre 818 (Given - Provider: Frankie Hair RN) 0857 [...] on Thu07/22/22 at 2207, Until Discontinued, Routine 2030 (Given - Provider: Paige Gonzalez RN) 210 (Given - Provider: Yandy Masters, EUNICE) senna-docusate (Pericolace) 8.6-50 mg per tablet 2 [...] RN) 0858 (Given - Provider: Jimbo Willams RN)210 (Given - Provider: Yandy Masters RN) 0818 [...] documented as of this encounter Care Teams Structural Biologist Relationship Specialty Start Date End Date Lorna Bal, [place] [address] [place] [address] PCP - General Family Medicine 05/27/18 documented as of this encounter
--- OUTSIDE RECORDS SUMMARY | 2023-11-16 16:57 | XMS_ITS | Encounter Summary ---
Author Organization [facility] [place] [address] Care Team Providers Care Film Cleaner Name Role Phone Lorna Bal APRN Primary Care Provider [phone] [phone] Encounter Details Date Type Department Care Team (Late st Contact Info) Description 08/07/2022 1:00 PM EDT TH Visit (TeleHealth) Infectious Disease at [facility] [place] [phone] Lilli Joy APRN [facility] [place] [address] Spinal abscess; Acute hematogenous osteomyelitis, unspecified site; Escherichia coli infection; Pseudomonas infection Social History Tobacco Use Types Packs/Day Years Used Date Smoking Tobacco: Never Smokeless Tobacco: Never Comments:NO SMOKERS IN THE H OME Alcohol Use Standard Drinks/Week Comments No 0 (1 standard drink = 0.6 oz pur e alcohol) [facility] Inpatient Questions Answer Date [...] this encounter Progress Notes * Lilli Joy, [place] [employer] [place] SALESPERSON - 08/07/2022 1:00 PM EDT .. INFECTIOUS [...] [Transparent Dressings] Itching and Dermatitis Please use [id number] ??? Penicillins Physical Exam: Deferred Labs: Lab [...] EDT TH Visit (TeleHealth) [place] [address] Lilli Joy APRN [facility] [place] [address] 12/03/2023 12:30 PM EDT Office Visit Infectious Disease at [place] [phone] Hollie Ambriz MD [facility] INFECTIOUS DISEASE [place], [place] [id number] 12/03/2023 2:30 PM EDT Appointment Radiology at [place] [phone] Andrade Melvin MD [facility] [place] [address] documented as of this encounter Visit Diagnoses [...] documented as of this encounter Care Teams Film Cleaner Relationship Specialty Start Date End Date Lorna Bal APRN [address] [place] [address] PCP - General Family Medicine 05/27/18 documented as of this encounter
--- OUTSIDE RECORDS SUMMARY | 2023-11-16 16:57 | XMS_ITS | Encounter Summary ---
[place] [address] Care Team Providers Care Hogshead Press Operator Name Role Phone Lorna Bal APRN Primary Care Provider [phone] [phone] Encounter Details Date Type Department Care Team (Latest Contact Info) Description 08/11/2022 Travel Social History Tobacco Use Types Packs/Day Years Used Date Smoking Tobacco: Never Smokeless Tobacco: Never Comments:NO SMOKERS IN THE H OME Alcohol Use Standard Drinks/Week Comments No 0 (1 standard drink = 0.6 oz pur e alcohol) [facility] Inpatient Questions Answer Date Recorded Does [...] TH Visit (TeleHealth) Infectious Disease at [facility] [place] [phone] Lilli Joy APRN [facility] [place] [address] 12/03/2023 12:30 PM EDT Office Visit Infectious Disease at [place] [phone] Hollie Ambriz MD [facility] [place] [address] 12/03/2023 2:30 PM EDT [place] [address] Andrade Melvin MD [facility] [place] [address] documented as of this encounter Visit Diagnoses Not on filedocumented in this encounter Care Teams Hogshead Press Operator Relationship Specialty Start Date End Date Lorna Bal APRN [address] [place] [address] PCP - General Family Medicine 05/27/18 documented as of this encounter
--- OUTSIDE RECORDS SUMMARY | 2023-11-16 16:57 | XMS_ITS | Encounter Summary ---
Author Organization [facility] [place] [address] Care Team Providers Care Manufacturing Project Manager Name Role Phone Lorna Bal APRN Primary Care Provider [phone] [phone] Encounter Details Date Type Department Care Team (Late st Contact Info) Description 08/06/2022 Telephone [place] [phone] Halima García Social History Tobacco Use Types Packs/Day Years Used Date Smoking Tobacco: Never Smokeless Tobacco: Never Comments:NO SMOKERS IN THE H OME Alcohol Use Standard Drinks/Week Comments No 0 (1 standard drink = 0.6 oz pur e alcohol) [facility] Inpatient Questions Answer Date Recorded [...] EDT TH Visit (TeleHealth) Infectious Disease at [place] [phone] Lilli Joy [facility]N [facility] [place] [address] 12/03/2023 12:30 PM EDT Office [place] [address] Hollie Ambriz MD [facility] [address] [place] [address] 12/03/2023 2:30 PM EDT Appointment Radiology at [place] [phone] Andrade Melvin MD [facility] DR [place] [address] documented as of this encounter Visit Diagnoses Not on filedocumented in this encounter Additional Health Concerns Infection Onset Date Last Indicated Resolved Time Enterovirus / Rhinovirus 07/28/2022 07/28/2022 8:09 PM EDT documented as of this encounter Care Teams Manufacturing Project Manager Relationship Specialty Start Date End Date Lorna Bal APRN [address] [place] [address] PCP - General Family Medicine 05/27/18 documented as of this encounter
--- OUTSIDE RECORDS SUMMARY | 2023-11-16 16:57 | XMS_ITS | Encounter Summary ---
[place] [address] Care Team Providers Care Computer Typesetter Keyliner Name Role Phone Lorna Bal APRN Primary Care Provider [phone] [phone] Encounter Details Date Type Department Care Team [...] EDT TH Visit (TeleHealth) Infectious Disease at [place] [place] [phone] Lilli Joy APRN [facility] [place] [address] 12/03/2023 12:30 PM EDT Office Visit Infectious Disease at [place] [phone] Hollie Ambriz MD [facility] [place] [address] 12/03/2023 2:30 PM EDT [place] [address] Andrade Melvin MD [facility] [place] [address] documented as of this encounter Visit Diagnoses Not on filedocumented in this encounter Care Teams Computer Typesetter Keyliner Relationship Specialty Start Date End Date Lorna Bal APRN [address] [place] [address] PCP - General Family Medicine 05/27/18 documented as of this encounter
--- OUTSIDE RECORDS SUMMARY | 2023-11-16 16:57 | XMS_ITS | Encounter Summary ---
Author Organization [facility] [place] [address] Care Team Providers Care Riprap Worker Name Role Phone Lorna Bal APRN Primary Care Provider [phone] [phone] Reason for Referral * Home Health Care (Routine) - Denied Specialty Diagnoses / Procedures Referred By Contac t Referred To Contact Diagnoses Spinal abscess [place] [address] [facility] [address] [place] [id number] Referral ID Status Reason Start Date Expiration Date V isits Requested Visits Authorized [id number] Denied Consult, Test & Treat 08/06/2022 08/06/2023 999 0 Encounter Details Date Type Department Care Team (Late st Contact Info) Description 08/06/2022 [place] [phone] [place] [address] Spinal abscess Social History Tobacco [...] EDT TH Visit (TeleHealth) Infectious Disease at [address] Lilli Joy APRN [facility] [place] [address] 12/03/2023 12:30 PM EDT Office Visit Infectious Disease at [address] Hollie Ambriz MD [facility] [place] [address] 12/03/2023 2:30 PM EDT Appointment Radiology at [place] [address] Andrade Melvin MD [facility] [place] [address] Scheduled Referrals Name Type Priority Associated Diagnoses [...] documented as of this encounter Care Teams Riprap Worker Relationship Specialty Start Date End Date Lorna Bal APRN [address] [place] [address] PCP - General Family Medicine 05/27/18 documented as of this encounter
--- OUTSIDE RECORDS SUMMARY | 2023-11-16 16:57 | XMS_ITS | Encounter Summary ---
Author Organization [facility] [place] [address] Care Team Providers Care Automation Developer Name Role Phone Lorna Bal APRN Primary Care Provider [phone] [phone] Encounter Details Date Type Department Care Team (Late st Contact Info) Description 08/07/2022 Telephone Infectious [place] [phone] Mesha Mckeon, RN Social History Tobacco Use [...] EDT TH Visit (TeleHealth) Infectious Disease at [place] [address] Lilli Joy APRN [facility] [place] [address] 12/03/2023 12:30 PM EDT Office Visit Infectious Disease at [place] [address] Hollie Ambriz MD [facility] [place] [address] 12/03/2023 2:30 PM EDT Appointment Radiology at [place] [address] Andrade Melvin MD [facility] DIAGNOSTIC [place] [address] documented as of this encounter Visit Diagnoses Not on filedocumented in this encounter Additional Health Concerns Infection Onset Date Last Indicated Resolved Time Enterovirus / Rhinovirus 07/28/2022 07/28/2022 8:09 PM EDT documented as of this encounter Care Teams Automation Developer Relationship Specialty Start Date End Date Lorna Bal APRN [address] [place] [address] PCP - General Family Medicine 05/27/18 documented as of this encounter
--- OUTSIDE RECORDS SUMMARY | 2023-11-16 16:57 | XMS_ITS | Encounter Summary ---
[place] [address] Care Team Providers Care Environmental Systems Coordinator Name Role Phone Lorna Bal APRN Primary Care Provider [phone] [phone] Reason for Referral * Consultation (Routine) - Closed Specialty Diagnoses / Procedures Referred By Contac t Referred To Contact [facility] Diagnoses Spinal abscess Soft tissue abscess Bacteremia Sergey Keane MD [facility] [place] [address] [facility] [place] [address] Referral ID Status Reason Start Date Expiration Date V isits Requested Visits Authorized [id number] Closed Consult, Test & Treat 08/13/2022 08/13/2023 1 1 Encounter Details Date Type Department Care Team (Late st Contact Info) Description 08/13/2022 11:30 AM EDT Office [place] [address] Sergey Keane MD [facility] [place] [address] Spinal abscess; Soft tissue abscess; Bacteremia; assisted 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 Social History Tobacco [...] 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 and??prior bilateral [place]??in??2010 admitted to [facility] on 06/24??for evaluation of??increasing redness and tenderness [...] drainage from the same area??she returned to [facility] on 07/22, a repeated CT of the [...] needed Sergey Doan MD Infectious Disease Fellow [facility] 08/18/2022 Chronic suppression Behaving as infection * [...] EDT TH Visit (TeleHealth) [place] [address] Lilli Joy APRN [facility] [address] [place] [address] 12/03/2023 12:30 PM EDT Office [place] [address] Hollie Ambriz MD [facility] [place] [address] 12/03/2023 2:30 PM EDT Appointment Radiology at [address] Andrade Melvin MD [facility] [place] [address] Scheduled Referrals Name Type Priority Associated Diagnoses Order Schedule Referral to Orthopaedics Outpatient Referral Routine Spinal abscess Soft tissue abscess Bacteremia Ordered: 08/13/2022 documented as of this encounter Visit Diagnoses Diagnosis Spinal abscess Acute osteomyelitis, other specified site Soft tissue abscess Cellulitis and abscess of other specified site Bacteremia medical terminologist 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 Encounter for long-term (current) use of antibiotics documented in this encounter Care Teams Environmental Systems Coordinator Relationship Specialty Start Date End Date Lorna Bal APRN [address] [place] [address] PCP - General Family Medicine 05/27/18 documented as of this encounter
--- OUTSIDE RECORDS SUMMARY | 2023-11-16 16:58 | XMS_ITS | Encounter Summary ---
Author Organization [facility] Address [facility] [place] [address] Care Team Providers Care Field Services Analyst Name Role Phone Lorna Bal APRN Primary Care Provider [phone] [phone] Encounter Details Date Type Department Care Team (Late st Contact Info) Description 07/17/2022 Telephone Infectious Disease at [facility] [place] [address] Jamaal Estrada MD [facility] [place] [address] Social History Tobacco Use Types Packs/Day Years [...] EDT TH Visit (TeleHealth) [place] [address] Lilli Joy APRN [facility] [place] [address] 12/03/2023 12:30 PM EDT Office [place] [address] [facility] INFECTIOUS [place] [address] 12/03/2023 2:30 PM EDT [place]oint[place] [address] [facility] DR DIAGNOSTIC [place] [address] documented as of this encounter Visit Diagnoses Not on filedocumented in this encounter Care Teams Field Services Analyst Relationship Specialty Start Date End Date Lorna Bal APRN [address] [place] [address] PCP - General Family Medicine 05/27/18 documented as of this encounter
--- OUTSIDE RECORDS SUMMARY | 2023-11-16 16:58 | XMS_ITS | Encounter Summary ---
Author Organization [facility] [place] [address] Care Team Providers Care Gate Attendant Name Role Phone Lorna Bal APRN Primary Care Provider [phone] [phone] Encounter Details Date Type Department Care Team (Late st Contact Info) Description 07/22/2022 Orders Only Radiology at [facility] [place] [address] Yury Gibbons MD [facility] [place] [address] Social History Tobacco Use Types Packs/Day Years Used Date Smoking Tobacco: Never Smokeless Tobacco: Never Comments:NO SMOKERS IN THE H OME Alcohol Use Standard Drinks/Week Comments No 0 (1 standard drink = 0.6 oz pur e alcohol) [facility] Inpatient Questions Answer Date Recorded Does [...] EDT TH Visit (TeleHealth) Infectious Disease at [place] [phone] Lilli Joy APRN [facility] [place] [address] 12/03/2023 12:30 PM EDT Office Visit Infectious Disease at [place] [phone] Hollie Ambriz MD [facility] [place] [address] 12/03/2023 2:30 PM EDT Appointment Radiology at [place] [phone] Andrade Melvin MD [facility] [address] [place] [address] documented as of this encounter Visit Diagnoses Not on filedocumented in this encounter Care Teams Gate Attendant Relationship Specialty Start Date End Date Lorna Bal APRN [address] [place] [address] PCP - General Family Medicine 05/27/18 documented as of this encounter
--- OUTSIDE RECORDS SUMMARY | 2023-11-16 16:58 | XMS_ITS | Encounter Summary ---
Author Organization [facility] [place] [address] Care Team Providers Care Induction Machine Operator Name Role Phone Lorna Bal APRN Primary Care Provider [phone] Encounter Details Date Type Department Care Team (Late st Contact Info) Description 07/09/2022 Notes Only Infectious Disease at [facility] [place] [phone] Mesha Mckeon, RN Social History Tobacco Use [...] AM EDT Infectious Disease Department Faxed to [facility] and [facility] on 07/09/22 at 0950 Fax confirmation on 07/09/22 at 0952 Document(s) faxed: Standing labs documented in this encounter Plan of Treatment Upcoming Encounters Date Type Department Care Team (Late st Contact Info) Description 11/19/2023 2:30 PM EDT TH Visit (TeleHealth) Infectious Disease at [place] [phone] Lilli Joy APRN [facility] [place] [address] 12/03/2023 12:30 PM EDT Office [place] [address] Hollie Ambriz MD [facility] [place] [address] 12/03/2023 2:30 PM EDT Appointment Radiology at [place] [phone] Andrade Melvin MD [facility] [place] [address] documented as of this encounter Visit Diagnoses Not on filedocumented in this encounter Additional Health Concerns Infection Onset Date Last Indicated Resolved Time Parainfluenza Virus 06/28/2022 06/28/2022 07/10/19 8:09 PM EDT documented as of this encounter Care Teams Induction Machine Operator Relationship Specialty Start Date End Date Lorna Bal APRN [address] [place] [address] PCP - General Family Medicine 05/27/18 documented as of this encounter
--- OUTSIDE RECORDS SUMMARY | 2023-11-16 16:58 | XMS_ITS | Encounter Summary ---
[place] [address] Care Team Providers Care Crime Data Specialist Name Role Phone Lorna Bal APRN Primary Care Provider [phone] Encounter Details Date Type Department Care Team (Latest Contact Info) Description 07/24/2022 Travel Social History Tobacco Use Types Packs/Day Years Used Date Smoking Tobacco: Never Smokeless Tobacco: Never Comments:NO SMOKERS IN THE H OME Alcohol Use Standard Drinks/Week Comments No 0 (1 standard drink = 0.6 oz pur e alcohol) [facility] Inpatient Questions Answer Date Recorded Does Anyone [...] EDT TH Visit (TeleHealth) Infectious Disease at [facility] [place] [phone] [address] [facility] [address] 12/03/2023 12:30 PM EDT Office Visit Infectious Disease at [place] [phone] Hollie Ambriz MD [facility] [place] [address] 12/03/2023 2:30 PM EDT Appointment [place] [address] Andrade Melvin MD [facility] [place] [address] documented as of this encounter Visit Diagnoses Not on filedocumented in this encounter Care Teams Crime Data Specialist Relationship Specialty Start Date End Date Lorna Bal APRN [address] [place] [address] PCP - General Family Medicine 05/27/18 documented as of this encounter
--- OUTSIDE RECORDS SUMMARY | 2023-11-16 16:58 | XMS_ITS | Encounter Summary ---
Author Organization [facility] [place] [address] Care Team Providers Care Director Of Procurement Name Role Phone Lorna Bal APRN Primary Care Provider [phone] [phone] Encounter Details Date Type Department Care Team (Late st Contact Info) Description 07/22/2022 Notes Only Infectious Disease at [facility] [place] [phone] Mesha Mckeon, RN Social History Tobacco Use [...] 07/22/2022 1:28 PM EDT Received call from [facility] who informed this writer technical publications that they are unable to obtain labs [...] EDT TH Visit (TeleHealth) Infectious Disease at [address] Lilli Joy APRN [facility] [place] [address] 12/03/2023 12:30 PM EDT Office Visit Infectious Disease at [address] Hollie Ambriz MD [facility] [place] [address] 12/03/2023 2:30 PM EDT Appointment Radiology at [address] Andrade Melvin MD [facility] [place] [address] documented as of this encounter Visit Diagnoses Not on filedocumented in this encounter Care Teams Director Of Procurement Relationship Specialty Start Date End Date Lorna Bal APRN [address] [place] [address] PCP - General Family Medicine 05/27/18 documented as of this encounter
--- OUTSIDE RECORDS SUMMARY | 2023-11-16 16:58 | XMS_ITS | Encounter Summary ---
Author Organization [facility] [place] [address] Care Team Providers Care Cone Cleaner Name Role Phone Lorna Bal APRN Primary Care Provider [phone] Encounter Details Date Type Department Care Team (Late st Contact Info) Description 07/15/2022 Telephone [place] [phone] Valentina Stanton Social History Tobacco Use Types Packs/Day Years Used Date Smoking Tobacco: Never Smokeless Tobacco: Never Comments:NO SMOKERS IN THE H OME Alcohol Use Standard Drinks/Week Comments No 0 (1 standard drink = 0.6 oz pur e alcohol) [facility] Inpatient Questions Answer Date Recorded [...] alert. She is taking levofloxacin as prescribed. [facility] labs today. We talked about the [...] EDT TH Visit (TeleHealth) [place] [phone] Lilli Joy APRN [facility] [place] [address] 12/03/2023 12:30 PM EDT Office [place] [phone] Hollie Ambriz MD [facility] [place] [address] 12/03/2023 2:30 PM EDT Appoint[place] [address] Andrade Melvin MD [facility] DR DIAGNOSTIC [place] [address] documented as of this encounter Visit Diagnoses Not on filedocumented in this encounter Care Teams Cone Cleaner Relationship Specialty Start Date End Date Lorna Bal APRN [address] [place] [address] PCP - General Family Medicine 05/27/18 documented as of this encounter
--- OUTSIDE RECORDS SUMMARY | 2023-11-16 16:58 | XMS_ITS | Encounter Summary ---
Author Organization [facility] Address [facility] [place] [address] Care Team Providers Care Buckle Sewer Machine Name Role Phone Lorna Bal APRN Primary Care Provider [phone] Encounter Details Date Type Department Care Team (Late st Contact Info) Description 07/12/2022 Telephone [place] [phone] Ainsley Doyle MD [facility] [place] [address] Social History Tobacco Use Types Packs/Day Years [...] EDT TH Visit (TeleHealth) [place] [address] Lilli Joy [address]N [facility] [address] 12/03/2023 12:30 PM EDT Office [place] [address] Hollie Ambriz MD [facility] [place] [address] 12/03/2023 2:30 PM EDT Appointment Radiology at [place] [phone] Andrade Melvin MD [facility] [place] [address] documented as of this encounter Visit Diagnoses Not on filedocumented in this encounter Care Teams Buckle Sewer Machine Relationship Specialty Start Date End Date Lorna Bal APRN [address] [address] PCP - General Family Medicine 05/27/18 documented as of this encounter
--- OUTSIDE RECORDS SUMMARY | 2023-11-16 16:59 | XMS_ITS | Encounter Summary ---
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, sequela Acquired dysplasia of hip, unspecified laterality Procedures NM Whole Body Bone Scan Vanda Carter [place] [facility] [place] [address] [place] [address] Referral ID Status Reason Start Date Expiration Date V isits Requested Visits Authorized [id number] Closed Specialty Service Requested 12/16/2016 12/16/2017 2 2 Encounter Details Date Type Department Care Team (Late st Contact Info) Description 12/16/2016 Orders [place] [address] Vanda Carter PA [facility] [place] [address] Traumatic brain injury, without LOC, sequela; Acquired [...] EDT TH Visit (TeleHealth) Infectious Disease at [address] Lilli Joy APRN [facility] [place] [address] 12/03/2023 12:30 PM EDT Office [place] [address] Hollie Ambriz MD [facility] DR [place] [address] 12/03/2023 2:30 PM EDT [place] [address] Andrade Melvin MD [facility] DR [place]AGNO[place] [address] documented as of this encounter Results * [...] laterality documented in this encounter Care Teams Housecleaner Floor Relationship Specialty Start Date End Date Emelyn Easley MD [address] [place] [address] PCP - General Family Medicine 08/26/16 05/26/18 documented as of this encounter
--- OUTSIDE RECORDS SUMMARY | 2023-11-16 16:59 | XMS_ITS | Encounter Summary ---
[place] [address] Care Team Providers Care Decision Science Analyst Name Role Phone Lorna Bal APRN Primary Care Provider [phone] Encounter Details Date Type Department Care Team (Late st Contact Info) Description 06/19/2022 Telephone [place] [phone] Gurdeep Simmons MD [facility] [place] [address] Social History Tobacco Use Types Packs/Day Years [...] a call from Kelly Landa APRN at [facility] regarding Tana Cavazos through the transfer center. [...] was brought to the ED today byher grounds caretaker as there was some concern for having perceived pain her back (patient is non-verbal).Per report, examination by providers at [facility] do not demonstrate evidence of pain, [...] The patient was evaluated by orthopaedics at [facility] (Dr. Weiss) who did not recommend [...] were answered. Gurdeep Simmons MD Orthopaedic Surgery 0969 documented in this encounter Plan of Treatment Upcoming Encounters Date Type Department Care Team (Late st Contact Info) Description 11/19/2023 2:30 PM EDT TH Visit (TeleHealth) Infectious Disease at [facility] [place] [address] Lilli Joy APRN [facility] [place] [address] 12/03/2023 12:30 PM EDT Office [place] [phone] Hollie Ambriz MD [facility] [place] [address] 12/03/2023 2:30 PM EDT [place]oint[place] [address] Andrade Melvin MD [facility] [place] [address] documented as of this encounter Visit Diagnoses Not on filedocumented in this encounter Care Teams Decision Science Analyst Relationship Specialty Start Date End Date Lorna Bal APRN [address] [place] [address] PCP - General Family Medicine 05/27/18 documented as of this encounter
--- OUTSIDE RECORDS SUMMARY | 2023-11-16 16:59 | XMS_ITS | Encounter Summary ---
Author Organization [facility] Address [facility] [place] [address] Care Team Providers Care Router Machine Operator Name Role Phone Lorna Bal APRN Primary Care Provider [phone] Reason for Referral * Home Health Care (Routine) - Closed Specialty Diagnoses / Procedures Referred By Contac t Referred To Contact Diagn[place] [address] [facility] [address] [place] [address] Referral ID Status Reason Start Date Expiration Date V isits Requested Visits Authorized [id number] Closed Consult, Test & Treat 07/09/2022 01/05/2023 999 999 Reason for Visit * Reason Comments Surgical Post Op * Auth/Cert (Routine) Specialty Diagnoses / Procedures Referred By Contac t Referred To Contact Diagnoses Spinal abscess Procedures EMERGENCY GABI Eddi Váz[place] [address] [facility] Referral ID Status Reason Start Date Expiration Date Visits Re quested Visits Authorized [id number] 1 1 Encounter Details Date Type Department Care Team (Latest Contact Info) Description 06/24/2022 2:05 PM EST - 07/09/2022 10:29 AM EDT Hospital Encounter Medical Specialites Unit Level 1 [place] [id number] Eddi Váz[place] [address] [place] [address] [place] [address] [place] [address] [place] [address] Spinal abscess; Tachycardia; Bacteremia Discharge Disposition: Home [...] Tana Shelton Patient Age: 27 y.o. Language: German Race: White Ethnicity: Not nor Admit date: [...] please contact your inpatient physician through the [facility] Product Developer . Issues afterhours and on weekends will [...] however on 06/17 she was brought to [facility] by her staff anesthetist for possibly increased back pain and received [...] questions please contact the health career development specialist that requested your imaging first. All Drainage Procedures (Exam End: 06/25/2022 4:45 [...] than 25 cc. Fluoroscopy time: Please see [facility] IR technologist record for procedural dose/time. Cefazolin/ [...] The tract was dilated, and an 8 Bolivian drain was advanced over the wire into [...] aspiration demonstrated shiraz pus, and an 8 Bolivian drain was placed using ultrasound guidance as [...] maximal sterile barrier technique was used throughout. Scientist Engineer fluoroscopic images were obtained. Contrast was injected [...] questions please contact the health career development specialist that requested your imaging first. Lumbar Spine w Contrast (Exam End: 07/03/2022 [...] questions please contact the health career development specialist that requested your imaging first. All Drainage Procedures (Exam End: 07/04/2022 4:14 PM) Narrative Preoperative Diagnosis: re accumulated Lumbar collection by CT, Fevers Postoperative Diagnosis: Same Procedure Performed: Ultrasound and fluoroscopically guided drain placement. Operators: Mich Martino MD, Attending Estimated Blood Loss: Negligible. Fluoroscopy dose: Please see [facility] IR technologist record for procedural dose/time. Cefazolin/ [...] dilated over the wire and a 8.5 Bolivian drain was advanced over the wire into [...] questions please contact the health career development specialist that requested your imaging first. Electronically signed by: Nathalie Whitaker MD, [facility] ([phone]), at 07/05/2022 5:38 PM IR Site Check In Recovery Room (Exam End: 07/08/2022 10:29 AM) Narrative This exam is auto-finalizing. No interpretation was done. Pending Studies and Lab Data: None Discharge Conditions/Prognosis: Stable Discharge to: Home Updated Allergies/ADRs: Allergies Allergen Reactions ??? Fluoxetine Other (See Comments) HIVES, HEART RACES ??? Tegaderm [Transparent Dressings] Itching and Dermatitis Please use [id number] ??? Penicillins Immunizations Given this Hospitalization: Immunization History Administered Date(s) Administered ??? Influenza Vaccine (Novel) [id number], Injectable 02/25/2009 ??? Influenza Vaccine w/Preservative, Split [...] back. The number for Infectious Disease is [phone] if you have questions or do not [...] Bal PCP Office Your Inpatient Doctor(s) at [facility]: [facility] Medicine Dr. Hills and Dr. Jefferson - Infectious Disease. General Instructions [facility] Vascular and Interventional Radiology Discharge Instructions For [...] is during regular office hours, please call [phone]. If it is after regular office hours, or on weekends or holidays, please call [phone] and ask to speak to the Sales Consultant personnel and payroll technician for Interventional Radiology. You have received medication [...] PM Lilli Joy APRN Infectious Disease at [facility] Arrive at: Home [phone] Please do not come in for this visit. Your provider will call you at the number you provided. 08/13/2022 11:30 AM Sergey Keane MD Infectious Disease at [facility] Arrive at: Desk Operator Area [phone] Future Orders Complete By Expires IR Drain Check/Change/Remove [[id number] Custom] 07/20/2022 08/06/2022 Process Instructions: Scheduling Instructions: Questions: Where will study be performed?: [facility] Radiology Reason for exam and clinical [...] Tana Shelton for admission to Home Health. [address] [place] [id number] Date of : 1995 Inpatient DOCUMENTATION FOR VNA SERVICES (INCLUDING THOSE PATIENTS WITH MEDICARE COVERAGE REQUIRING HOME VNA SERVICES AND/OR HOSPICE SERVICES) PATIENT'S LOCATION: Tana Shelton [address] [facility] [address] Cell: Telephone Information: Starch Crab's Name: Mother/Guardian Anderson [phone] In discussion with the attending physician, it is certified that this patient is under their care and that they, or a Nurse Practitioner,Clinical Nurse specialist or Physician Jackerman who is working directly with them, had [...] Jefferson, Dr Samuel HOME HEALTH CARE AGENCY: [facility]. [address] [place] [address] Start of care: Anticipated start of care 24-48 hours after discharge Please note that any additional orders needs or changes will need to be obtained from this patient's PCP: Lorna Bal APRN [address] [facility] [address] All A agencies which cover the area of patient's residence have been reviewed, either verbally fatoumata writing, and patient/family have chosen the home health care agency noted ' Questions: Disciplines Requested: Nursing Discharge References/Attachments None documented in this encounter Discharge Instructions * Discharge Instructions* Hollie Perez MD - 06/25/2022 5:20 AM EST [facility] Vascular and Interventional Radiology Discharge Instructions For [...] is during regular office hours, please call [phone]. If it is after regular office hours, or on weekends or holidays, please call [phone] and ask to speak to the Sales Consultant personnel and payroll technician for Interventional Radiology. You have received medication [...] back. The number for Infectious Disease is [phone] if you have questions or do not [...] Bal PCP Office Your Inpatient Doctor(s) at [facility]: Dr. Perez - Hospital Medicine Dr. Hills [...] spent >30 minutes (Day of Discharge Code 11467) involved in the final examination of the [...] then cefepime vanc for 3 days at [facility] and discharged on cefpodoxime, referred to for [...] of care, communication with family Full code UNDERCOVER COP, nutrition recommendations, diet regular Anticipated Disposition, PT/OT recommendations Home tomorrow Team Pager ( Coverage 17/11) [phone] PCP Lorna Bal APRN Attestation IPI Certification I certify that I am a D-H credentialed attending provider with admitting privileges and that the patient meets or has met medical necessity to require an inpatient IPI level of care meeting a minimumof two midnights or is on the [facility] inpatient only procedure list (status C) [...] future testing is required, contact the Microbiology Transportation Engineer. * No growth at 1 day. No [...] questions please contact the health career development specialist that requested your imaging first. Chest One View (Exam End: 07/02/2022 5:04 [...] questions please contact the health career development specialist that requested your imaging first. Lumbar Spine w Contrast (Exam End: 07/03/2022 [...] questions please contact the health career development specialist that requested your imaging first. Abdomen & Pelvis w Contrast (Exam End: [...] questions please contact the health career development specialist that requested your imaging first. Electronically signed by: Nathalie Whitaker MD, [facility] ([phone]), at 07/05/2022 5:38 PM * Chrissie Lee [...] of care, communication with family Full code UNDERCOVER COP, nutrition recommendations, diet regular Anticipated Disposition, PT/OT recommendations Home in next 1-2 days Team Pager ( Coverage 17/11) [phone] PCP Lorna Bal APRN Attestation IPI Certification I certify that I am a D-H credentialed attending provider with admitting privileges and that the patient meets or has met medical necessity to require an inpatient IPI level of care meeting a minimumof two midnights or is on the [facility] inpatient only procedure list (status C) [...] future testing is required, contact the Microbiology Transportation Engineer. * No growth at 1 day. ECG: [...] questions please contact the health career development specialist that requested your imaging first. Chest One View (Exam End: 07/02/2022 5:04 [...] questions please contact the health career development specialist that requested your imaging first. Lumbar Spine w Contrast (Exam End: 07/03/2022 [...] questions please contact the health career development specialist that requested your imaging first. Abdomen & Pelvis w Contrast (Exam End: [...] questions please contact the health career development specialist that requested your imaging first. Electronically signed by: Nathalie Whitaker MD, [facility] ([phone]), at 07/05/2022 5:38 PM * Sergey Keane MD - 07/07/2022 4:02 PM EDT Images from the original note were not included. DEPARTMENT OF INFECTIOUS DISEASE & INTERNATIONAL HEALTH INFECTIOUS DISEASE PROGRESS NOTE Reason for follow up: E coli bacteremia, Spinal collections, gluteal abscess Subjective:Case discussed during rounds with ID team and the attending Dr. Samuel Patient is seen and examined at bedside. third cook at bedside, refers she is lethargic with [...] Sergey Doan MD Infectious Disease Fellow Pager [phone] 07/07/22 (Attending addendum to follow) Associated attestation [...] of care, communication with family Full code UNDERCOVER COP, nutrition recommendations, diet regular Anticipated Disposition, PT/OT recommendations Home Team Pager ( Coverage 17/11) [phone] PCP Lorna Bal APRN Attestation IPI Certification [...] future testing is required, contact the Microbiology Transportation Engineer. * ECG: Recent Labs 07/04/22 0016 DIAGLINE [...] questions please contact the health career development specialist that requested your imaging first. Chest One View (Exam End: 07/02/2022 5:04 [...] questions please contact the health career development specialist that requested your imaging first. Lumbar Spine w Contrast (Exam End: 07/03/2022 [...] questions please contact the health career development specialist that requested your imaging first. Abdomen & Pelvis w Contrast (Exam End: [...] questions please contact the health career development specialist that requested your imaging first. Electronically signed by: Nathalie Whitaker MD, [facility] ([phone]), at 07/05/2022 5:38 PM * Willis Calero, [...] follow peripherally. - IR follow up ordered, toolroom clerk notified. Willis Calero DO, MBA Interventional Radiology [...] and ADLs]:?Total ?? Surveillance [continuous indirect monitoring]:?? [facility] Bed alarm Room near nurses' station Rounding? [...] is still not taking PO intake, per occasional caregiver have concerns for strep. No BM on [...] of care, communication with family Full code UNDERCOVER COP, nutrition recommendations, diet regular Anticipated Disposition, PT/OT recommendations Home Team Pager ( Coverage 17/11) [phone] PCP Lorna Bal APRN Attestation IPI Certification I certify that I am a D-H credentialed attending provider with admitting privileges and that the patient meets or has met medical necessity to require an inpatient IPI level of care meeting a minimumof two midnights or is on the [facility] inpatient only procedure list (status C) [...] questions please contact the health career development specialist that requested your imaging first. Chest One View (Exam End: 07/02/2022 5:04 [...] questions please contact the health career development specialist that requested your imaging first. Lumbar Spine w Contrast (Exam End: 07/03/2022 [...] questions please contact the health career development specialist that requested your imaging first. * Paige Gonzalez RN - 07/05/2022 4:45 [...] and ADLs]:?Total ?? Surveillance [continuous indirect monitoring]:?? [facility] Bed alarm Room near nurses' station Rounding? [...] of : 1995 AGE: 27 y.o. Address: [address] [place] [address] Phone: [phone] (home) Mobile: Telephone Information: Referring Provider: Lorna [...] [Transparent Dressings] Itching and Dermatitis Please use [id number] ??? Penicillins Pertinent PMH: Patient Active Problem [...] Sergey Doan MD Infectious Disease Fellow Pager [phone] 07/04/22 (Attending addendum to follow) Associated attestation [...] Duarte MD - 07/04/2022 1:52 PM EST [facility] Medicine Attending Daily Progress Note DATE [...] spiking fevers now. -Discussed with infectious disease computer systems consultant. Patient will get a repeat aspiration today. [...] of care, communication with family Full code UNDERCOVER COP, nutrition recommendations, diet regular Anticipated Disposition, PT/OT recommendations Home Team Pager ( Coverage 17/11) [phone] PCP Lorna Bal APRN Attestation IPI Certification I certify that I am a D-H credentialed attending provider with admitting privileges and that the patient meets or has met medical necessity to require an inpatient IPI level of care meeting a minimumof two midnights or is on the [facility] inpatient only procedure list (status C) [...] questions please contact the health career development specialist that requested your imaging first. Chest One View (Exam End: 07/02/2022 5:04 [...] questions please contact the health career development specialist that requested your imaging first. Lumbar Spine w Contrast (Exam End: 07/03/2022 [...] questions please contact the health career development specialist that requested your imaging first. * Paige Gonzalez RN - 07/04/2022 5:22 [...] and ADLs]: Total Surveillance [continuous indirect monitoring]: [facility] Bed alarm Room near nurses' station Rounding Patient-specific fall prevention interventions for sensory deficits provided, if applicable: [X] No * Lilli Hughes RPH - 07/04/2022 12:03 AM EST Clinical Pharmacist Note - VancFD Tana Shelton [id number] 1995 Tana Shelton is a 27 y.o. [...] have. Alternately,during off-hours (9p-7a) you may call [phone] to contact a pharmacist. Lilli Hughes RPH [...] of care, communication with family Full code UNDERCOVER COP, nutrition recommendations, diet regular Anticipated Disposition, PT/OT recommendations Home Team Pager ( Coverage 17/11) [phone] PCP Lorna Bal APRN Attestation IPI Certification I certify that I am a D-H credentialed attending provider with admitting privileges and that the patient meets or has met medical necessity to require an inpatient IPI level of care meeting a minimumof two midnights or is on the [facility] inpatient only procedure list (status C) [...] change was found Confirmed by Lyndon Lafleur ([id number]) on 07/02/2022 5:10:53 PM QTCCALC 443 VASCULAR: [...] questions please contact the health career development specialist that requested your imaging first. Chest One View (Exam End: 07/02/2022 5:04 [...] questions please contact the health career development specialist that requested your imaging first. * Nury Torres RN - 07/03/2022 4:04 [...] of care, communication with family Full code UNDERCOVER COP, nutrition recommendations, diet regular Anticipated Disposition, PT/OT recommendations Home Team Pager ( Coverage 17/11) [phone] PCP Lorna Bal APRN Attestation IPI Certification I certify that I am a D-H credentialed attending provider with admitting privileges and that the patient meets or has met medical necessity to require an inpatient IPI level of care meeting a minimumof two midnights or is on the [facility] inpatient only procedure list (status C) [...] questions please contact the health career development specialist that requested your imaging first. * Karrie Smallwood - 07/02/2022 12:21 PM EST Nutrition Services Note - Low Nutrition Acuity Tana Shelton is a 27 y.o. female Reason for intervention: hospital day 9 Nutrition Plan: Continue current diet. Encourage good PO intake. Multivitamin with minerals noted. Monitor weight. Patient screened for hospital length of stay. Can Dragger communicated with RN by secure chat and primary occasional caregiver by phone. Per primary caregiver, patient has [...] weeks ago, where patient weighed 108 lbs. Can Dragger recommends an updated weight on patient to [...] unless consulted in the interim. ALEJANDRO Osei [phone] * Emeka Zavala MD - 07/02/2022 7:47 [...] 1 tablet ??? lactated Ringers 50 mL/hr (07/01/221) OBJECTIVE: Temp: [36.4 ??C (97.5 ??F)-38.4 ??C [...] Duarte MD - 07/01/2022 1:50 PM EST [facility] Medicine Attending Daily Progress Note DATE [...] of care, communication with family Full code UNDERCOVER COP, nutrition recommendations, diet regular Anticipated Disposition, PT/OT recommendations Home Team Pager ( Coverage 17/11) [phone] PCP Lorna Bal APRN Attestation IPI Certification I certify that I am a D-H credentialed attending provider with admitting privileges and that the patient meets or has met medical necessity to require an inpatient IPI level of care meeting a minimumof two midnights or is on the [facility] inpatient only procedure list (status C) [...] Lateral leads Confirmed by MD Shabazz Danette ([id number]) on 06/29/2022 9:49:48 PM QTCCALC 458 VASCULAR: [...] questions please contact the health career development specialist that requested your imaging first. * Tegan Snyder RN - 07/01/2022 11:44 AM EST [facility] DATABASE Name: Tana Shelton Date of : 1995 AGE: 27 y.o. Address: [address] [place] [address] Phone: [phone] (home) Mobile: Telephone Information: Referring Provider: Lorna [...] [Transparent Dressings] Itching and Dermatitis Please use [id number] ??? Penicillins Pertinent PMH: Patient Active Problem [...] Patient Name: Tana Shelton : 1995 MR#: [id number] Received contact from primary team regarding drain [...] Sergey Doan MD Infectious Disease Fellow Pager [phone] 06/30/22 (Attending addendum to follow) Associated attestation [...] of care, communication with family Full code UNDERCOVER COP, nutrition recommendations, diet regular Anticipated Disposition, PT/OT recommendations Home Team Pager ( Coverage 17/11) [phone] PCP Lorna Bal APRN Attestation IPI Certification I certify that I am a D-H credentialed attending provider with admitting privileges and that the patient meets or has met medical necessity to require an inpatient IPI level of care meeting a minimumof two midnights or is on the [facility] inpatient only procedure list (status C) [...] Lateral leads Confirmed by MD Shabazz Danette ([id number]) on 06/29/2022 9:49:48 PM QTCCALC 458 VASCULAR: [...] questions please contact the health career development specialist that requested your imaging first. * Estevan Alfaro MD - 06/29/2022 7:21 [...] of care, communication with family Full code UNDERCOVER COP, nutrition recommendations, diet regular Anticipated Disposition, PT/OT recommendations Home Team Pager ( Coverage 17/11) [phone] PCP Lorna Bal APRN Attestation IPI Certification I certify that I am a D-H credentialed attending provider with admitting privileges and that the patient meets or has met medical necessity to require an inpatient IPI level of care meeting a minimumof two midnights or is on the [facility] inpatient only procedure list (status C) [...] questions please contact the health career development specialist that requested your imaging first. * Edvin Looney MD - 06/29/2022 5:41 [...] of care, communication with family Full code UNDERCOVER COP, nutrition recommendations, diet regular Anticipated Disposition, PT/OT recommendations Home Team Pager ( Coverage 17/11) [phone] PCP Lorna Bal APRN Attestation IPI Certification I certify that I am a D-H credentialed attending provider with admitting privileges and that the patient meets or has met medical necessity to require an inpatient IPI level of care meeting a minimumof two midnights or is on the [facility] inpatient only procedure list (status C) [...] questions please contact the health career development specialist that requested your imaging first. * Anurag Call DO - 06/27/2022 6:20 PM EST HOSPITAL MEDICINE ATTENDING DAILY PROGRESS NOTE Patient Tana Shelton 1995 [id number] Physician Anurag Call DO Pager [phone] Encounter Date June 27, 2022 Admit Date 06/24/2022 Hospital Day 3 PCP Lorna Bal, WELD TECHNICIAN [phone] ASSESSMENT/PLAN: Active Hospital Problems Diagnosis ??? Spinal [...] minimumof two midnights or is on the [facility] inpatient only procedure list (status C) [...] Zhanna Garrett - 06/26/2022 7:15 PM EST Spray Crew Encounter Note Patient Name: Tana Shelton : [id number] MR#: [id number] Admit Date: 06/24/2022 2:05 PM Hospital Day 2 days Narrative: Initiated visit with Pt on unit rounds. Pt and caregiver were awake and Ms. Shelton's caregiver invited me in. Assessment: Ms. Shelton [...] Tana's mom would be coming [place] from [place] until the hospital knows what next stepsare. Fannie stated that she was so glad she got Tana to [facility], as the smaller hospitals were dissmissing and [...] Call DO - 06/26/2022 4:51 PM EST [facility] MEDICINE ATTENDING DAILY PROGRESS NOTE Patient Tana Shelton 1995 [id number] Physician Anurag Call DO Pager [phone] Encounter Date June 26, 2022 Admit Date 06/24/2022 Hospital Day 2 PCP Lorna Bal, WELD TECHNICIAN [phone] ASSESSMENT/PLAN: Active Hospital Problems Diagnosis ??? Spinal [...] minimumof two midnights or is on the [facility] inpatient only procedure list (status C) due to: Possible spinal abscess with involvement of previous placed hardware Anurag Call DO [phone] Hospitalist 06/26/2022 4:51 PM * Jimbo Willams [...] DAILY PROGRESS NOTE Patient Tana Shelton 1995 [id number] Physician Anurag Call DO Pager [phone] Encounter Date June 25, 2022 Admit Date 06/24/2022 Hospital Day 1 PCP Lorna Bal, WELD TECHNICIAN [phone] ASSESSMENT/PLAN: Active Hospital Problems Diagnosis ??? Spinal [...] data in the 24 hours ending 06/25/22 0577 GEN: awake, alert, NAD HEENT: PERRLA, EOMI, [...] questions please contact the health career development specialist that requested your imaging first. ULTANTS: IP ADMISSION REQUEST MEDICATIONS: SCHEDULED ??? sodium [...] minimumof two midnights or is on the [facility] inpatient only procedure list (status C) due to: Possible spinal abscess with involvement of previous placed hardware Anurag Call DO 2700 Hospitalist 06/25/2022 5:37 PM * Gadiel Morris RN - 06/25/2022 4:19 PM EST [facility] NURSING DATABASE Name: Tana Shelton Date of : 1995 AGE: 27 y.o. Address: [address] [place] [address] (home) Mobile: Telephone Information: Referring Provider: Lorna [...] [Transparent Dressings] Itching and Dermatitis Please use [id number] ??? Penicillins Pertinent PMH: Patient Active Problem [...] Drainage Procedures 06/25/2022 Mich Martino MD [facility] INTERVENTIONL RAD ??? IR DRAIN CHECK/CHANGE/REMOVE 07/01/2022 IR Drain Check/Change/Remove 07/01/2022 Jamaal Jenkins, DO [facility] INTERVENTIONL RAD ??? PRO APPLY OF HIP CASTS, TWO LEGS 08/15/2010 CAST APPLICATION, HIP SPICA, BOTH LEGS performed by BARRERA OLIVER at [facility] MAIN OR ? ? PRO I&D, POST SPINE, LUMB/SACR/LUMBOSAC N/A 05/20/2014 @I & D, OPEN, DEEP ABSCESS, LUMBAR, SACRAL, LUMBOSACRAL performed by Freddy Isbell MD at [facility] OR ? ? PRO I&D, POST SPINE, LUMB/SACR/LUMBOSAC N/A 05/26/2014 @I & D, OPEN, DEEP ABSCESS, LUMBAR, SACRAL, LUMBOSACRAL performed by Freddy Isbell MD at [facility] OR ??? PRO IMPACT TOOTH REMOV COMP BONY N/A 06/14/2018 SURGICAL EXTRACTIONS, REMOVAL OF IMPACTED TOOTH, COMPLETELY BONY (WRVU 1.93) performed by Keith Cotton MD at [facility] OSC ??? PRO OSTEOTOMY FEMUR SHAFT/SUPRACONDY 08/15/2010 ??OSTEOTOMY, FEMUR SHAFT OR SUPRACONDYLAR W/O FIXATION performed by BARRERA OLIVER at [facility] MAIN OR ??? PRO RECONSTRUC HIP SOCKET, RESEC FEM HEAD 08/15/2010 ??ACETABULOPLASTY (GIRDLESTONE), RESECTION FEMORAL HEAD, BILATERAL performed by BARRERA OLIVER [facility] MAIN OR ??? PRO REMOVAL DEEP IMPLANT 08/15/2010 REMOVAL IMPLANT, DEEP, BRUNO performed by BARRERA OLIVER at [facility] MAIN OR ??? PRO REMOVAL ERUPTED TOOTH WITH ELEVATION OF MUCOPERIOSTEAL FLAP N/A 06/14/2018 SURGICAL EXTRACTIONS REQUIRING ELEVATION OF MUCOPERIOSTEAL FLAP AND REMOVAL OF BONE OR SECTION OF TOOTH (WRVU 1.09) performed by Keith Cotton MD at [facility] OSC ??? PRO REMOVE INFUSN DEVICE/PUMP N/A 05/11/2014 REMOVAL OF SPINE INFUSION PUMP performed by Jamaal Samuel MD at [facility] MAIN OR ??? PRO REMOVE SPINAL CANAL CATHETER N/A 05/11/2014 REMOVAL OF INTRATHECAL OR EPIDURAL CATHETER performed by Jamaal Samuel MD at [facility] OR ??? PRO REPR, DURAL/CSF LEAK, NOT REQ LAMINECTOMY N/A 05/20/2014 @REPAIR DURAL\CSF LEAK,NOT REQUIRING LAMINECTOMY performed by Freddy Isbell MD at [facility] OR Social History and Habits: [...] PA at 07/04/2022 3:09 PM EST * Vest, DEMI Torres - 07/01/2022 9:39 AM EST [...] Drainage Procedures 06/25/2022 Mich Martino MD [facility] INTERVENTION[facility] RAD ??? PRO APPLY OF HIP CASTS, TWO LEGS 08/15/2010 CAST APPLICATION, HIP SPICA, BOTH LEGS performed by BARRERA OLIVER at [facility] MAIN OR ? ? PRO I&D, POST SPINE, LUMB/SACR/LUMBOSAC N/A 05/20/2014 @I & D, OPEN, DEEP ABSCESS, LUMBAR, SACRAL, LUMBOSACRAL performed by Freddy Isbell MD at [facility] MAIN OR ? ? PRO I&D, POST SPINE, LUMB/SACR/LUMBOSAC N/A 05/26/2014 @I & D, OPEN, DEEP ABSCESS, LUMBAR, SACRAL, LUMBOSACRAL performed by Freddy Isbell MD at [facility] OR ??? PRO IMPACT TOOTH REMOV COMP BONY N/A 06/14/2018 SURGICAL EXTRACTIONS, REMOVAL OF IMPACTED TOOTH, COMPLETELY BONY (WRVU 1.93) performed by Keith Cotton MD at [facility] OSC ??? PRO OSTEOTOMY FEMUR SHAFT/SUPRACONDY 08/15/2010 ??OSTEOTOMY, FEMUR SHAFT OR SUPRACONDYLAR W/O FIXATION performed by BARRERA OLIVER at [facility] OR ??? PRO RECONSTRUC HIP SOCKET, RESEC FEM HEAD 08/15/2010 ??ACETABULOPLASTY (GIRDLESTONE), RESECTION FEMORAL HEAD, BILATERAL performed by BARRERA OLIVER [facility] OR ??? PRO REMOVAL DEEP IMPLANT 08/15/2010 REMOVAL IMPLANT, DEEP, BRUNO performed by BARRERA OLIVER at [facility] OR ??? PRO REMOVAL ERUPTED TOOTH WITH ELEVATION OF MUCOPERIOSTEAL FLAP N/A 06/14/2018 SURGICAL EXTRACTIONS REQUIRING ELEVATION OF MUCOPERIOSTEAL FLAP AND REMOVAL OF BONE OR SECTION OF TOOTH (WRVU 1.09) performed by Keith Cotton MD at [facility] OSC ??? PRO REMOVE INFUSN DEVICE/PUMP N/A 05/11/2014 REMOVAL OF SPINE INFUSION PUMP performed by Jamaal Samuel MD at [facility] OR ??? PRO REMOVE SPINAL CANAL CATHETER N/A 05/11/2014 REMOVAL OF INTRATHECAL OR EPIDURAL CATHETER performed by Jamaal Samuel MD at [facility] OR ??? PRO REPR, DURAL/CSF LEAK, NOT REQ LAMINECTOMY N/A 05/20/2014 @REPAIR DURAL\CSF LEAK,NOT REQUIRING LAMINECTOMY performed by Freddy Isbell MD at [facility] OR Social History and Habits: [...] Tegaderms. S. Gómez Ellison MD PGY-2 Pager #[phone] Department of Radiology [facility] 06/25/2022 Source Note - Hank Nunez PA [...] LEGS performed by BARRERA OLIVER at [facility] MAIN OR ? ? PRO I&D, POST SPINE, LUMB/SACR/LUMBOSAC N/A 05/20/2014 @I & D, OPEN, DEEP ABSCESS, LUMBAR, SACRAL, LUMBOSACRAL performed by Freddy Isbell MD at [facility] MAIN OR ? ? PRO I&D, POST SPINE, LUMB/SACR/LUMBOSAC N/A 05/26/2014 @I & D, OPEN, DEEP ABSCESS, LUMBAR, SACRAL, LUMBOSACRAL performed by Freddy Isbell MD at [facility] MAIN OR ??? PRO IMPACT TOOTH REMOV COMP BONY N/A 06/14/2018 SURGICAL EXTRACTIONS, REMOVAL OF IMPACTED TOOTH, COMPLETELY BONY (WRVU 1.93) performed by Keith Cotton MD at [facility] OSC ??? PRO OSTEOTOMY FEMUR SHAFT/SUPRACONDY 08/15/2010 ??OSTEOTOMY, FEMUR SHAFT OR SUPRACONDYLAR W/O FIXATION performed by BARRERA OLIVER at [facility] MAIN OR ??? PRO RECONSTRUC HIP SOCKET, RESEC FEM HEAD 08/15/2010 ??ACETABULOPLASTY (GIRDLESTONE), RESECTION FEMORAL HEAD, BILATERAL performed by BARRERA OLIVER [facility] MAIN OR ??? PRO REMOVAL DEEP IMPLANT 08/15/2010 REMOVAL IMPLANT, DEEP, BRUNO performed by BARRERA OLIVER at [facility] MAIN OR ??? PRO REMOVAL ERUPTED TOOTH WITH ELEVATION OF MUCOPERIOSTEAL FLAP N/A 06/14/2018 SURGICAL EXTRACTIONS REQUIRING ELEVATION OF MUCOPERIOSTEAL FLAP AND REMOVAL OF BONE OR SECTION OF TOOTH (WRVU 1.09) performed by Keith Cotton MD at [facility] OSC ??? PRO REMOVE INFUSN DEVICE/PUMP N/A 05/11/2014 REMOVAL OF SPINE INFUSION PUMP performed by Jamaal Samuel MD at [facility] MAIN OR ??? PRO REMOVE SPINAL CANAL CATHETER N/A 05/11/2014 REMOVAL OF INTRATHECAL OR EPIDURAL CATHETER performed by Jamaal Samuel MD at [facility] OR ??? PRO REPR, DURAL/CSF LEAK, NOT REQ LAMINECTOMY N/A 05/20/2014 @REPAIR DURAL\CSF LEAK,NOT REQUIRING LAMINECTOMY performed by Freddy Isbell MD at [facility] OR Social history and habits: [...] LEGS performed by BARRERA OLIVER at [facility] MAIN OR ? ? PRO I&D, POST SPINE, LUMB/SACR/LUMBOSAC N/A 05/20/2014 @I & D, OPEN, DEEP ABSCESS, LUMBAR, SACRAL, LUMBOSACRAL performed by Freddy Isbell MD at [facility] MAIN OR ? ? PRO I&D, POST SPINE, LUMB/SACR/LUMBOSAC N/A 05/26/2014 @I & D, OPEN, DEEP ABSCESS, LUMBAR, SACRAL, LUMBOSACRAL performed by Freddy Isbell MD at [facility] MAIN OR ??? PRO IMPACT TOOTH REMOV COMP BONY N/A 06/14/2018 SURGICAL EXTRACTIONS, REMOVAL OF IMPACTED TOOTH, COMPLETELY BONY (WRVU 1.93) performed by Keith Cotton MD at [facility] OSC ??? PRO OSTEOTOMY FEMUR SHAFT/SUPRACONDY 08/15/2010 ??OSTEOTOMY, FEMUR SHAFT OR SUPRACONDYLAR W/O FIXATION performed by BARRERA OLIVER at [facility] OR ??? PRO RECONSTRUC HIP SOCKET, RESEC FEM HEAD 08/15/2010 ??ACETABULOPLASTY (GIRDLESTONE), RESECTION FEMORAL HEAD, BILATERAL performed by BARRERA OLIVER [facility] OR ??? PRO REMOVAL DEEP IMPLANT 08/15/2010 REMOVAL IMPLANT, DEEP, BRUNO performed by BARRERA OLIVER at [facility] OR ??? PRO REMOVAL ERUPTED TOOTH WITH ELEVATION OF MUCOPERIOSTEAL FLAP N/A 06/14/2018 SURGICAL EXTRACTIONS REQUIRING ELEVATION OF MUCOPERIOSTEAL FLAP AND REMOVAL OF BONE OR SECTION OF TOOTH (WRVU 1.09) performed by Keith Cotton MD at [facility] OSC ??? PRO REMOVE INFUSN DEVICE/PUMP N/A 05/11/2014 REMOVAL OF SPINE INFUSION PUMP performed by Jamaal Samuel MD at [facility] OR ??? PRO REMOVE SPINAL CANAL CATHETER N/A 05/11/2014 REMOVAL OF INTRATHECAL OR EPIDURAL CATHETER performed by Jamaal Samuel MD at [facility] OR ??? PRO REPR, DURAL/CSF LEAK, NOT REQ LAMINECTOMY N/A 05/20/2014 @REPAIR DURAL\CSF LEAK,NOT REQUIRING LAMINECTOMY performed by Freddy Isbell MD at [facility] OR Social history and habits: [...] quadriplegia ID: 27 y.o. Female presents to [facility] with redness and drainage from midline surgical [...] however on 06/17 she was brought to [facility] by her staff anesthetist for possibly increased back pain and received [...] LEGS performed by BARRERA OLIVER at [facility] MAIN OR ? ? PRO I&D, POST SPINE, LUMB/SACR/LUMBOSAC N/A 05/20/2014 @I & D, OPEN, DEEP ABSCESS, LUMBAR, SACRAL, LUMBOSACRAL performed by Freddy Isbell MD at [facility] MAIN OR ? ? PRO I&D, POST SPINE, LUMB/SACR/LUMBOSAC N/A 05/26/2014 @I & D, OPEN, DEEP ABSCESS, LUMBAR, SACRAL, LUMBOSACRAL performed by Freddy Isbell MD at [facility] MAIN OR ??? PRO IMPACT TOOTH REMOV COMP BONY N/A 06/14/2018 SURGICAL EXTRACTIONS, REMOVAL OF IMPACTED TOOTH, COMPLETELY BONY (WRVU 1.93) performed by Keith Cotton MD at [facility] OSC ??? PRO OSTEOTOMY FEMUR SHAFT/SUPRACONDY 08/15/2010 ??OSTEOTOMY, FEMUR SHAFT OR SUPRACONDYLAR W/O FIXATION performed by BARRERA OLIVER at [facility] MAIN OR ??? PRO RECONSTRUC HIP SOCKET, RESEC FEM HEAD 08/15/2010 ??ACETABULOPLASTY (GIRDLESTONE), RESECTION FEMORAL HEAD, BILATERAL performed by BARRERA OLIVER [facility] MAIN OR ??? PRO REMOVAL DEEP IMPLANT 08/15/2010 REMOVAL IMPLANT, DEEP, BRUNO performed by BARRERA OLIVER at [facility] MAIN OR ??? PRO REMOVAL ERUPTED TOOTH WITH ELEVATION OF MUCOPERIOSTEAL FLAP N/A 06/14/2018 SURGICAL EXTRACTIONS REQUIRING ELEVATION OF MUCOPERIOSTEAL FLAP AND REMOVAL OF BONE OR SECTION OF TOOTH (WRVU 1.09) performed by Keith Cotton MD at [facility] OSC ??? PRO REMOVE INFUSN DEVICE/PUMP N/A 05/11/2014 REMOVAL OF SPINE INFUSION PUMP performed by Jamaal Samuel MD at [facility] MAIN OR ??? PRO REMOVE SPINAL CANAL CATHETER N/A 05/11/2014 REMOVAL OF INTRATHECAL OR EPIDURAL CATHETER performed by Jamaal Samuel MD at [facility] MAIN OR ??? PRO REPR, DURAL/CSF LEAK, NOT REQ LAMINECTOMY N/A 05/20/2014 @REPAIR DURAL\CSF LEAK,NOT REQUIRING LAMINECTOMY performed by Freddy Isbell MD at [facility] MAIN OR Prior To Admission Medications: (Not in a hospital admission) Allergies: Allergies Allergen Reactions ??? Fluoxetine Other (See Comments) HIVES, HEART RACES ??? Tegaderm [Transparent Dressings] Itching and Dermatitis Please use [id number] ??? Penicillins Family History: Family History Problem [...] Administered Date(s) Administered ??? Influenza Vaccine (Novel) [id number], Injectable 02/25/2009 ??? Influenza Vaccine w/Preservative, Split [...] 0.1 x10(3)/mcL Immature Gran % 0.10 % Debora Gran Abs 0.01 0.00 - [...] improvement in thecellulitis. Tana was brought [facility] on 06/17/2022 by her staff anesthetist as there was some concern for having perceived pain her back (patient is non-verbal). Patient was hospitalized for IV antibiotic treatment of a presumed cellulitis. examination by providers at [facility] did not not preceded evidence of pain, [...] The patient was evaluated by orthopaedics at [facility] (Dr. Weiss) who did not recommend attempting to aspirate the area. Inflammatory labs on 06/19/20 were: WBC: 7, CRP: 7.5. She is afebrile, and there have been no fevers since the time she began oral antibiotics for the cellulitis. Prior to discharge Dr. Simmons from orthopedics at [facility] once consulted. Per his note on 06/19/2022 [...] be progressing again since her discharge from [facility] on 06/19/2020. Patient hasbeen afebrile with no [...] and did the previous consult note from [facility]. Spoke with orthopedics who are recommending touching [...] 2046: Orthopedics were able to reach their customer care specialist and will evaluate patient. Plan based [...] questions please contact the health career development specialist that requested your imaging first. Assessment and Plan: 27 y.o. female with history of spastic quadriplegia CP, scoliosis, prior bilateral Girdlestone's who was recently discharged home on 06/19/2021 from [facility] where she received IV antibiotics for possible [...] Contact information [facility] [place] [place] [address] [place] [address] Transportation: family or friend will provide *Mother [...] agreement with plan. Phyllis Abraham RN, BSN Band Saw Operator - Medicine Office of Care Management Office: Pager: [phone] * Plan of Care - Jigna Neal RN - 07/09/2022 10:27 AM EDT aTna Shelton discharged to Home by private car [...] yesterday morning Please call with any questions #[phone] Jean-Pierre Godinez RN * Consult Note - Vi Lawrence, [facility] - 07/05/2022 8:27 AM EST ?? The [...] Alternately, during off-hours you comfort mason call [phone] to contact a pharmacist. * Care Management [...] Agency/Support Group Needs: Homecare agency Agency Referrals: [facility] following for DC needs and possible acceptance. Transportation: family or friend will provide Barriers to discharge: Discharge planning Plan going forward: Repeat CT lumbar spine today due to recurrent low grade fevers Care Management will continue to follow and assist with discharge planning and coordination of care as indicated. Anticipated Date of Discharge: 07/07/2022 Phyllis Abraham, RN, BSN Band Saw Operator - Medicine Office of Care Management Office: Pager: [phone] * Care Management - Amy Trejo RN [...] Agency Referrals: I have met with the shared services representative (anderson) to: ?? discuss discharge planning needs. ?? provide the [facility], Office of Care Management letter from the Senior Backup Administrator pertaining to rehabreferrals. ?? provide a letter describing our affiliations within the [facility] and educate about their right to choose where referrals are sent. ?? provide a list of Home Health Agencies / Durable Medical Equipment vendors which serve their preferred geographic area. ?? provided patient with CMS Star Quality Rating handout. They have requested referrals to: [facility]. [address] [place] [id number] Note routed to a Emergency Response Officer who will communicate referrals to facilities and [...] Date of Discharge: 07/03/2022 Amy Trejo RN, Pager-[phone] * Plan of Care - Katherine Ryan RN - 07/02/2022 4:51 PM EST OUTCOME EVALUATION NOTE: OUTCOME SUMMARY: Alert on RA, assessment as documented. Does not appear to be in pain. LR 500cc bolus fo SBP 94 increased to 110. HR remain tachy to low 100s. Cont LR discontinued. [facility]. CXR obtained. High [...] improvement. On 06/17 she was seen at [facility] due to increased back pain and received [...] with you. Please call with questions, pager [phone]. Discussed with attending, Dr. Brown Tee MD [...] is possible that her prior antibiotics at [facility] have made cultures less sensitive. * Plan of Care - Piter Magaña RN - 06/28/2022 5:15 AM EST OUTCOME EVALUATION NOTE: OUTCOME SUMMARY: Patient has been sleeping intermittently throughout the night. VSS. Mom remains atthe bedside and is attentive to patient. Continues on tele. HR noted to sustain in the 120's-130's.Tele showed ST. All other VSS. Patient asymptomatic. MD ([id number]) made aware and ordered 500 ml bolus [...] device Home Address confirmed as: [address] [facility] [address] Social & Family Supports: All names listed below confirmed with patient as current and correct Extended Emergency Contact Information [facility] Relation: Mother Secondary Emergency Contact: [facility] Mobile Relation: Step parent Current Care Provided [...] Insurance: N/A Prescription Coverage: Yes Preferred Pharmacy: [facility] [address] [place] [address] [address] [facility] [address] [place] [id number] [facility] Home Delivery - [facility] [address] [employer] [facility] [address] [id number] - [place], [place] - [address] [facility] [address] [facility] [address] Status: Patient is a : No Primary Care Provider confirmed: Lorna Bal, WELD TECHNICIAN [phone] Patient/Caregiver Goals of Treatment: Caregiver anticipates return [...] of care planning. Alicja Franklin RN, BSN mini bar attendant Office of Care Management Pager: [phone] * Consult Note - Piter Palmer MD [...] in years. Patient was originally seen at [facility] where an ultrasound performed demonstrating a small fluid collection in the subcutaneous tissue. Patient was admitted for 2 days at [facility] for IV antibiotics and then ultimately transitioned to p.o. antibiotics on discharge. Patient presents to the [facility] ED today for persistent erythema despite antibiotic [...] LEGS performed by BARRERA OLIVER at [facility] MAIN OR ? ? PRO I&D, POST SPINE, LUMB/SACR/LUMBOSAC N/A 05/20/2014 @I & D, OPEN, DEEP ABSCESS, LUMBAR, SACRAL, LUMBOSACRAL performed by Freddy Isbell MD at [facility] MAIN OR ? ? PRO I&D, POST SPINE, LUMB/SACR/LUMBOSAC N/A 05/26/2014 @I & D, OPEN, DEEP ABSCESS, LUMBAR, SACRAL, LUMBOSACRAL performed by Freddy Isbell MD at [facility] MAIN OR ??? PRO IMPACT TOOTH REMOV COMP BONY N/A 06/14/2018 SURGICAL EXTRACTIONS, REMOVAL OF IMPACTED TOOTH, COMPLETELY BONY (WRVU 1.93) performed by Keith Cotton MD at [facility] OSC ??? PRO OSTEOTOMY FEMUR SHAFT/SUPRACONDY 08/15/2010 ??OSTEOTOMY, FEMUR SHAFT OR SUPRACONDYLAR W/O FIXATION performed by BARRERA OLIVER at [facility] MAIN OR ??? PRO RECONSTRUC HIP SOCKET, RESEC FEM HEAD 08/15/2010 ??ACETABULOPLASTY (GIRDLESTONE), RESECTION FEMORAL HEAD, BILATERAL performed by BARRERA OLIVER [facility] MAIN OR ??? PRO REMOVAL DEEP IMPLANT 08/15/2010 REMOVAL IMPLANT, DEEP, BRUNO performed by BARRERA OLIVER at [facility] MAIN OR ??? PRO REMOVAL ERUPTED TOOTH WITH ELEVATION OF MUCOPERIOSTEAL FLAP N/A 06/14/2018 SURGICAL EXTRACTIONS REQUIRING ELEVATION OF MUCOPERIOSTEAL FLAP AND REMOVAL OF BONE OR SECTION OF TOOTH (WRVU 1.09) performed by Keith Cotton MD at [facility] OSC ??? PRO REMOVE INFUSN DEVICE/PUMP N/A 05/11/2014 REMOVAL OF SPINE INFUSION PUMP performed by Jamaal Samuel MD at [facility] MAIN OR ??? PRO REMOVE SPINAL CANAL CATHETER N/A 05/11/2014 REMOVAL OF INTRATHECAL OR EPIDURAL CATHETER performed by Jamaal Samuel MD at [facility] OR ??? PRO REPR, DURAL/CSF LEAK, NOT REQ LAMINECTOMY N/A 05/20/2014 @REPAIR DURAL\CSF LEAK,NOT REQUIRING LAMINECTOMY performed by Freddy Isbell MD at [facility] OR Home Medications: (Not in a hospital admission) Allergies: Allergies Allergen Reactions ??? Fluoxetine Other (See Comments) HIVES, HEART RACES ??? Tegaderm [Transparent Dressings] Itching and Dermatitis Please use [id number] ??? Penicillins Current Medications: No current facility-administered [...] Spine Surgery - Department of Orthopaedic Surgery Jewelry Technician - Department of Orthopedic Surgery / Academics and Research Receiving Associate Professor - [facility] 06/25/2022 * Consult Note - Kelvin Munson, [facility] - 06/24/2022 9:44 PM EST TelePharmacy Home Medication List Update for Medication Reconciliation 06/24/22 9:45 PM Tana Shelton 1995 Allergies Allergen Reactions ??? Fluoxetine Other (See Comments) HIVES, HEART RACES ??? Tegaderm [Transparent Dressings] Itching and Dermatitis Please use [id number] ??? Penicillins ??? Person Interviewed: adult staff anesthetist ??? Quality of Interview/accuracy of medication list: [...] EDT TH Visit (TeleHealth) Infectious Disease at [place] [phone] Lilli Joy APRN [facility] [address] [place] [address] 12/03/2023 12:30 PM EDT Office [place] [address] Hollie Ambriz MD [facility] [place] [address] 12/03/2023 2:30 PM EDT Appointment Radiology at [place] [phone] Andrade Melvin MD [facility] [place] [address] Scheduled Referrals Name Type Priority Associated Diagnoses [...] 7:10 AM EDT SCAN, PERIPHERAL BLOOD Routine 03/13/202 3 3:41 AM EDT HEMOGRAM Routine 07/07/2022 3:41 [...] & AUTO DIFF Routine 5:38 AM EST BASIC METABOLIC PANEL (NON-FASTING) [...] 3:55 AM EDT) Neutrophils % 51.7 % [facility] Neutr Abs (ANC) 3.50 1.70 - 6.10 x10(3)/[facility] Lymphocytes % 39.1 % [facility] Lymphocytes Abs 2.6 0.9 - 3.2 x10(3)/[facility] Monocytes % 5.9 % [facility] Monocyte Abs 0.4 0.3 - 0.9 x10(3)/[facility] Eosinophils % 1.5 % [facility] Eosinophils Abs 0.1 0.0 - 0.4 x10(3)/[facility] Basophils % 0.6 % [facility] Basophils Abs 0.0 0.0 - 0.1 x10(3)/[facility] Immature Gran % 1.20 % [facility] Comment: Immature granulocytes(IG's)percentage and absolute count will include metamyelocytes, myelocytes, and promyelocytes. Blood smears from CBCs yielding IG's will be scanned manually for concordance. If this scan disagrees with the automated IG or if promyelocytes are noted, a manual differential will be performed. [place] Gran Abs 0.08(H) 0.00 - 0.04 x10(3)/[facility] Blood 07/09/2022 3:55 AM EDT 07/09/2022 4:02 AM EDT Narrative Resulting Agency Comment Spec In Lab Hollie Perez MD HEMATOLOGY ORDERABL ES [facility] [place] [address] * (ABNORMAL) Hemogram (07/09/2022 3:55 AM EDT) WBC 6.8 4.0 - 9.5 x10(3)/[facility] RBC 3.54(L) 4.00 - 5.21 x10(6)/[facility] Hemoglobin 8.8(L) 11.7 - 15.5 g/dL [facility] Hematocrit 28.1(L) 35.7 - 45.8 % [facility] MCV 79.4(L) 82.6 - 94.4 fL [facility] MCH 24.9(L) 27.1 - 32.0 pg [facility] MCHC 31.3(L) 31.7 - 35.0 g/dL [facility] Platelets 386(H) 145 - 357 x10(3)/[facility] RDWSD 57.2(H) 37.0 - 46.0 [facility] RDWCV 20.9(H) 11.5 - 14.1 % [facility] MPV 9.4 7.6 - 12.9 [facility] nRBC % Auto 0.0 % [facility] nRBC Abs Auto 0.000 0.000 - 0.000 x10(3)/[facility] Blood 07/09/2022 3:55 AM EDT 07/09/2022 4:02 AM EDT Narrative Resulting Agency Comment Spec In Lab Hollie Perez MD HEMATOLOGY ORDERABL ES [facility] [place] [address] * (ABNORMAL) Basic Metabolic Panel (non-fasting) (07/09/2022 3:55 AM EDT) Glucose Lvl 101 65 - 199 mg/dL [facility] Comment:Diabetes: >=200 mg/d L plus symptoms BUN 8 8 - 18 mg/dL [facility] Creatinine 0.26(L) 0.70 - 1.20 mg/dL [facility] Sodium 139 135 - 145 mmol/L [facility] Potassium 4.2 3.5 - 5.0 mmol/L [facility] [...] mmol/L [facility] Anion Gap 12 5 - 15 mmol/L [facility] Calcium 9.1 8.5 - 10.5 mg/dL [facility] Estimated GFR 152 >=60 mL/min/1. 73 m?? [facility] [facility] [...] Lab Hollie Perez MD CHEMISTRY ORDERABLE S [facility] [place] [address] * IR Site Check In Recovery Room (07/08/2022 10:29 AM EDT) Narrative Dicom, Auditing User - 07/08/2022 10:29 AM EDT This exam is auto-finalizing. No interpretation was done. Hollie Perez MD IMG IR ORDERABLES * (ABNORMAL) Differential, Automated (07/08/2022 5:48 AM EDT) Neutrophils % 49.5 % [facility] Neutr Abs (ANC) 2.62 1.70 - 6.10 x10(3)/[facility] Lymphocytes % 41.6 % [facility] Lymphocytes Abs 2.2 0.9 - 3.2 x10(3)/[facility] LABORATORY Monocytes % 5.5 % [facility] Monocyte Abs 0.3 0.3 - 0.9 x10(3)/[facility] LABORATORY Eosinophils % 2.1 % [facility] Eosinophils Abs 0.1 0.0 - 0.4 x10(3)/[facility] LABORATORY Basophils % 0.4 % [facility] Basophils Abs 0.0 0.0 - 0.1 x10(3)/[facility] LABORATORY Immature Gran % 0.90 % [facility] Comment: Immature granulocytes(IG's)percentage and absolute count will include metamyelocytes, myelocytes, and promyelocytes. Blood smears from CBCs yielding IG's will be scanned manually for concordance. If this scan disagrees with the automated IG or if promyelocytes are noted, a manual differential will be performed. Debora Gran Abs 0.05(H) 0.00 - 0.04 x10(3)/[facility] LABORATORY Blood 07/08/2022 5:48 AM EDT 07/08/2022 5:53 AM EDT Narrative Resulting Agency Comment Spec In Lab Hollie Perez MD HEMATOLOGY ORDERABL ES [facility] [place] [address] * (ABNORMAL) Hemogram (07/08/2022 5:48 AM EDT) WBC 5.3 4.0 - 9.5 x10(3)/[facility] LABORATORY RBC 3.42(L) 4.00 - 5.21 x10(6)/[facility]ORATORY Hemoglobin 8.4(L) 11.7 - 15.5 g/dL [facility] Hematocrit 27.2(L) 35.7 - 45.8 % [facility] MCV 79.5(L) 82.6 - 94.4 fL [facility] MCH 24.6(L) 27.1 - 32.0 pg [facility] MCHC 30.9(L) 31.7 - 35.0 g/dL [facility] Platelets 336 145 - 357 x10(3)/[facility]ORATORY RDWSD 55.7(H) 37.0 - 46.0 [facility] RDWCV 19.9(H) 11.5 - 14.1 % [facility] MPV 9.2 7.6 - 12.9 [facility] nRBC % Auto 0.4 % [facility] nRBC Abs Auto 0.020(H) 0.000 - 0.000 x10(3)/[facility] Blood 07/08/2022 5:48 AM EDT 07/08/2022 5:53 AM EDT Narrative Resulting Agency Comment Spec In Lab Hollie Perez MD HEMATOLOGY ORDERABL ES [facility] [place] [address] * (ABNORMAL) Basic Metabolic Panel (non-fasting) (07/08/2022 5:48 AM EDT) Glucose Lvl 92 65 - 199 mg/dL [facility] Comment:Diabetes: >=200 mg/d L plus symptoms BUN 6(L) 8 - 18 mg/dL [facility] Creatinine 0.24(L) 0.70 - 1.20 mg/dL [facility] [...] questions. Chloride 105 98 - 107 mmol/L [facility] CO2 23 22 - 31 mmol/L [facility] Anion Gap 12 5 - 15 mmol/L [facility] Calcium 8.7 8.5 - 10.5 mg/dL [facility] Estimated GFR 155 >=60 mL/min/1. 73 m?? [facility] [...] Lab Hollie Perez MD CHEMISTRY ORDERABLE S [facility] [place] [address] * Cortisol (07/08/2022 5:48 AM EDT) Cortisol 17.6 mcg/dL [facility] Comment: Reference ranges: ??AM (6-10am): ??4.8-19.5 mcg/dL ??PM (4-8pm) : ??2.5-11.9 mcg/dL Blood 07/08/2022 5:48 AM EDT 07/08/2022 5:53 AM EDT Narrative Resulting Agency Comment Spec In Lab Hollie Perez MD CHEMISTRY ORDERABLE S [facility] [place] [address] * (ABNORMAL) CRP, acute inflammation (07/08/2022 5:48 AM EDT) CRP 16.8(H) <=4.9 mg/L [facility] Blood 07/08/2022 5:48 AM EDT 07/08/2022 5:53 AM EDT Narrative Resulting Agency Comment Spec In Lab Hollie Perez MD CHEMISTRY ORDERABLE S Performing Organization Address [facility]/ZIP Co de Phone Number [facility] [place] [address] * (ABNORMAL) Ferritin (07/08/2022 5:48 AM EDT) Ferritin 204(H) 15 - 150 ng/mL [facility] Comment: Pediatric reference ranges not verified at [facility], interpret with caution. Reference ranges for females greater than 50 years of age approach values for men, i.e., 30-400 ng/mL. Blood 07/08/2022 5:48 AM EDT 07/08/2022 5:53 AM EDT Narrative Resulting Agency Comment Spec In Lab Hollie Perez MD CHEMISTRY ORDERABLE S [facility] [place] [address] * (ABNORMAL) Iron and TIBC (07/08/2022 5:48 AM EDT) Iron 52 30 - 150 mcg/dL [facility] TIBC 217(L) 250 - 450 mcg/dL [facility] Iron Saturation 24 20 - 50 % [facility] Blood 07/08/2022 5:48 AM EDT 07/08/2022 5:53 AM EDT Narrative Resulting Agency Comment Spec In Lab Hollie Perez MD CHEMISTRY ORDERABLE S Performing Organization Address [facility] Co de Phone Number [facility] [place] [address] * EKG 12 Lead (07/07/2022 11:44 AM EDT) Ventricular rate 78 BPM MUSE SYSTEM Atrial Rate 78 BPM MUSE SYSTEM P-R Interval 132 ms MUSE SYSTEM QRS Duration 84 ms MUSE SYSTEM Q-T Interval 410 ms MUSE SYSTEM QTC Calculated (Bezet) 467 ms MUSE SYSTEM Calculated P Racine 23 degrees MUSE SYSTEM Calculated R Rac[place] 0 degrees MUSE SYSTEM Calculated T Racine 24 degrees MUSE SYSTEM INTERPRETATION Normal sinus rhythm with sinus arrhythmia Cannot rule out Inferior infarct , age undetermined Abnormal ECG When compared with ECG of 04-JUL-2022 00:16, Vent. rate has decreased BY ??74 BPM Confirmed by MD Jeanmarie Ty ([id number]) on 07/10/2022 4:37:33 PM MUSE SYSTEM 07/07/2022 11:4 4 AM EDT 07/10/2022 4:37 PM EDT Hollie Perez MD ECG ORDERABLES Performing Organization Address [facility] de Phone Number MUSE SYSTEM * (ABNORMAL) Blood Gas Venous ([facility]) (07/07/2022 7:10 AM EDT) pH Hitesh 7.42 7.32 - 7.42 [facility] pCO2 Hitesh 39(L) 41 - 51 mmHg [facility] pO2 Hitesh 58(H) 25 - 40 mmHg [facility] HCO3 Hitesh 24.5 mmol/L [facility] BE Hitesh 0.0 mmol/L [facility] Hgb Blood Gas 8.8(L) 11.7 - 15.5 g/dL [facility] O2HB Hitesh 89.6 % [facility] COHB Hitesh 0.3 % [facility] Comment: Nonsmokers: 0.5-1.5% COHB Smokers: Variable, but usually less than 10% Toxic: 20-30% COHB Lethal: Greater than 60% COHB METHB Hitesh 0.1 <=1.5 % [facility] Na Whole Blood 138 135 - 145 mmol/L [facility] K Whole Blood 3.6 3.5 - 5.0 mmol/L [facility] Comment: Please note: Patients with WBC >100,000 may have falsely elevated Potassium levels. Contact the Clinical Chemistry Laboratory if there are any questions. ICa Whole Blood 1.16 1.15 - 1.33 mmol/L [facility] Comment: Note: ??Total bilirubin higher than 20 mg/dL may lead to falsely low ionized calcium. CL Whole Blood 109(H) 98 - 107 mmol/L [facility] Gluc Whole Bld 89 65 - 199 mg/dL [facility] Comment:Diabetes: >=200 mg/d L plus symptoms Lactate WB 1.3 0.5 - 2.2 mmol/L [facility] BGas Source Venous [facility] Blood Venous Draw / Unknown 07/07/2022 7:10 AM EDT 07/07/2022 7:18 AM EDT Narrative Resulting Agency Comment Spec In Lab Mayank Kang MD CHEMISTRY ORDERABLES [facility] [place] [address] * Scan, Peripheral Blood (07/07/2022 3:41 AM EDT) Plat Estimate Normal [facility] RBC Morphology Abnormal [facility] Macrocytes 1-5 /HPF [facility] Microcytes 6-10 /HPF [facility] Hypochromia Slight [facility] Ovalocytes 1-5 /HPF [facility] Giant Platelets Less than 1 /HPF [facility] Blood 07/07/2022 3:41 AM EDT 07/07/2022 3:46 AM EDT Narrative Resulting Agency Comment Spec In Lab Hollie Perez MD HEMATOLOGY ORDERABL ES [facility] [place] [address] * (ABNORMAL) Differential, Automated (07/07/2022 3:41 AM EDT) Neutrophils % 40.9 % [facility] Neutr Abs (ANC) 1.54(L) 1.70 - 6.10 x10(3)/ L [facility] Lymphocytes % 49.7 % [facility] Lymphocytes Abs 1.9 0.9 - 3.2 x10(3)/[facility] LABORAT[facility] Monocytes % 6.3 % [facility] Monocyte Abs 0.2(L) 0.3 - 0.9 x10(3)/ L [facility] Eosinophils % 2.1 % [facility] Eosinophils Abs 0.1 0.0 - 0.4 x10(3)/ L [facility] Basophils % 0.5 % [facility] Basophils Abs 0.0 0.0 - 0.1 x10(3)/ L [facility] Immature Gran % 0.50 % [facility] Comment: Immature granulocytes(IG's)percentage and absolute count will include metamyelocytes, myelocytes, and promyelocytes. Blood smears from CBCs yielding IG's will be scanned manually for concordance. If this scan disagrees with the automated IG or if promyelocytes are noted, a manual differential will be performed. Debora Gran Abs 0.02 0.00 - 0.04 x10(3)/mc L [facility] Blood 07/07/2022 3:41 AM EDT 07/07/2022 3:46 AM EDT Narrative Resulting Agency Comment Spec In Lab Hollie Perez MD HEMATOLOGY ORDERABL ES Performing Organization Address City/[facility]/ZIP Co de Phone Number [facility] [place] [address] * (ABNORMAL) Hemogram (07/07/2022 3:41 AM EDT) WBC 3.8(L) 4.0 - 9.5 x10(3)/[facility] LABORATORY RBC 3.13(L) 4.00 - 5.21 x10(6)/[facility]ORATORY Hemoglobin 7.6(L) 11.7 - 15.5 g/dL [facility] Hematocrit 25.5(L) 35.7 - 45.8 % [facility] MCV 81.5(L) 82.6 - 94.4 [facility] MCH 24.3(L) 27.1 - 32.0 pg [facility] MCHC 29.8(L) 31.7 - 35.0 g/dL [facility] Platelets 281 145 - 357 x10(3)/[facility] RDWSD 56.9(H) 37.0 - 46.0 [facility] RDWCV 19.5(H) 11.5 - 14.1 % [facility] MPV 9.5 7.6 - 12.9 [facility] nRBC % Auto 0.0 % [facility] nRBC Abs Auto 0.000 0.000 - 0.000 x10(3)/[facility] Blood 07/07/2022 3:41 AM EDT 07/07/2022 3:46 AM EDT Narrative Resulting Agency Comment Spec In Lab Hollie Perez MD HEMATOLOGY ORDERABL ES [facility] [place] [address] * (ABNORMAL) Basic Metabolic Panel (non-fasting) (07/07/2022 3:41 AM EDT) Glucose Lvl 90 65 - 199 mg/dL [facility] Comment:Diabetes: >=200 mg/d L plus symptoms BUN 5(L) 8 - 18 mg/dL [facility] Creatinine 0.23(L) 0.70 - 1.20 mg/dL [facility] Sodium 141 135 - 145 mmol/L [facility] Potassium 3.7 3.5 - 5.0 mmol/L [facility] Comment: Please note: ??Patients with WBC >100,000 may have falsely elevated Potassium levels. ??For accurate Potassium quantification in these patients send serum separator tube (gold top) for subsequent determinations. ??Contact the Clinical Chemistry Laboratory if there are any questions. Chloride 110(H) 98 - 107 mmol/L [facility] CO2 23 22 - 31 mmol/L [facility] Anion Gap 8 5 - 15 mmol/L [facility] Calcium 8.3(L) 8.5 - 10.5 mg/dL [facility] Estimated GFR 157 >=60 mL/min/1. 73 m?? [facility] [...] Lab Hollie Perez MD CHEMISTRY ORDERABLE S [facility] [place] [address] * Blood culture (07/07/2022 3:41 AM EDT) [facility] Blood Culture No growth at 5 days. [facility] Blood 07/07/2022 3:41 AM EDT 07/07/2022 4:59 AM EDT Comment:L hand Narrative Resulting Agency Comment Spec In Lab Hollie Perez MD MICROBIOLOGY - BLOO D ORDERABLES Performing Organization Address [facility]/ZIP Co de Phone Number [facility] [place] [address] * (ABNORMAL) Hepatic Function Panel (07/07/2022 3:41 AM EDT) [facility] Total Protein 6.0(L) 6.1 - 8.0 g/dL [facility] Albumin 2.9(L) 3.2 - 5.2 g/dL [facility] AST 20 0 - 30 unit/L [facility] ALT 42(H) 0 - 30 unit/L [facility] Alk Phos 177(H) 35 - 105 unit/L [facility] Total Bilirubin <0.2(L) 0.2 - 1.3 mg/dL [facility] Bili, Direct <0.1 0.0 - 0.3 mg/dL [facility] Blood 07/07/2022 3:41 AM EDT 07/07/2022 3:46 AM EDT Narrative Resulting Agency Comment Spec In Lab Hollie Perez MD CHEMISTRY ORDERABLE S Performing Organization Address City/[facility]/ZIP Co de Phone Number [facility] [place] [address] * (ABNORMAL) Hemoglobin and Hematocrit, blood (07/06/2022 6:40 PM EDT) [facility] Hemoglobin 8.5(L) 11.7 - 15.5 g/dL [facility] Hematocrit 26.4(L) 35.7 - 45.8 % [facility] Blood 07/06/2022 6:40 PM EDT 07/06/2022 6:46 PM EDT Narrative Resulting Agency Comment Spec In Lab Hollie Perez MD HEMATOLOGY ORDERABL ES Performing Organization Address City/[facility]/ZIP Co de Phone Number [facility] [place] [address] * Lactate, whole blood, send to lab ([facility]) (07/06/2022 6:40 PM EDT) [facility] Lactate WB 0.6 0.5 - 2.2 mmol/L [facility] Blood 07/06/2022 6:40 PM EDT 07/06/2022 6:46 PM EDT Narrative Resulting Agency Comment Spec In Lab Hollie Perez MD CHEMISTRY ORDERABLE S Performing Organization Address [facility] Co de Phone Number [facility] [place] [address] * POCT Glucose (07/06/2022 5:36 PM EDT) [facility] POC Glucose 86 65 - 199 mg/dL [facility] Comment: Supplemental ranges: <140 mg/dL before meals <180 mg/dL all other times of the day Blood 07/06/2022 5:36 PM EDT 07/06/2022 5:36 PM EDT Hollie Perez MD POINT OF CARE TEST ORDERABLES Performing Organization Address [facility] Co de Phone Number [facility] [place] [address] * (ABNORMAL) CRP, acute inflammation (07/06/2022 6:21 AM EDT) CRP 54.2(H) <=4.9 mg/L [facility] Blood Venous Draw / Unknown 07/06/2022 6:21 AM EDT 07/06/2022 7:28 AM EDT Narrative Resulting Agency Comment Spec In Lab Hollie Perez MD CHEMISTRY ORDERABLE S [facility] [place] [address] * (ABNORMAL) Basic Metabolic Panel (non-fasting) (07/06/2022 6:21 AM EDT) Pathologist [facility] Glucose Lvl 80 65 - 199 mg/dL [facility] Comment:Diabetes: >=200 mg/d L plus symptoms BUN 4(L) 8 - 18 mg/dL [facility] Creatinine 0.26(L) 0.70 - 1.20 mg/dL [facility] Sodium 138 135 - 145 mmol/L [facility] Potassium 3.6 3.5 - 5.0 mmol/L [facility] Comment: Please note: ??Patients with WBC >100,000 may have falsely elevated Potassium levels. ??For accurate Potassium quantification in these patients send serum separator tube (gold top) for subsequent determinations. ??Contact the Clinical Chemistry Laboratory if there are any questions. Chloride 104 98 - 107 mmol/L [facility] CO2 Not Perf 22 - 31 [facility] Comment:Add-on request. Samp le too old to perform test. Anion Gap Unable to Calculate 5 - 15 mmol/L [facility] Calcium 8.6 8.5 - 10.5 mg/dL [facility] Estimated GFR 152 >=60 mL/min/1 .73 m?? [facility] Comment: This [...] MD CHEMISTRY ORDERABLE S Performing Organization Address [facility] Co de Phone Number [facility] [place] [address] * Lavender Tube HOLD (07/06/2022 6:21 AM EDT) Lavender Hold Sample in lab. [facility] Blood Venous Draw / Unknown 07/06/2022 6:21 AM EDT 07/06/2022 6:28 AM EDT Hollie Perez MD HEMATOLOGY ORDERABL ES Performing Organization Address [facility] Co de Phone Number [facility] [place] [address] * (ABNORMAL) Hepatic Function Panel (07/06/2022 6:21 AM EDT) Total Protein 6.7 6.1 - 8.0 g/dL [facility] Albumin 3.2 3.2 - 5.2 g/dL [facility] AST 25 0 - 30 unit/L [facility] ALT 57(H) 0 - 30 unit/L [facility] Alk Phos 199(H) 35 - 105 unit/L [facility] Total Bilirubin 0.3 0.2 - 1.3 mg/dL [facility] Bili, Direct 0.1 0.0 - 0.3 mg/dL [facility] Blood 07/06/2022 6:21 AM EDT 07/06/2022 6:27 AM EDT Narrative Resulting Agency Comment Spec In Lab Hollie Perez MD CHEMISTRY ORDERABLE S Performing Organization Address [facility] Co de Phone Number [facility] [place] [address] * Blood culture (07/06/2022 6:21 AM EDT) Blood Culture No growth at 5 days. [facility] Blood 07/06/2022 6:21 AM EDT 07/06/2022 11:05 AM EDT Comment:R Hand Narrative Resulting Agency Comment Spec In Lab Hollie Perez MD MICROBIOLOGY - BLOO D ORDERABLES Performing Organization Address [facility] de Phone Number [facility] [place] [address] * CT Abdomen & Pelvis w Contrast [...] questions please contact the health career development specialist that requested your imaging first. ? Electronically signed by: Nathalie Whitaker MD, [facility] ([phone]), at 07/05/2022 5:38 PM Narrative 07/05/2022 5:38 [...] administration of contrast. Administered 66.0 ml of [id number] mg/ml. Oral contrast administered. COMPARISON: CT lumbar [...] have questions please contactthe health career development specialist that requested your imaging first. Hollie Perez MD IMG CT ORDERABLES * Scan, Peripheral Blood (07/05/2022 5:31 AM EST) [facility] Plat Estimate Normal [facility] RBC Morphology Abnormal [facility] Hypochromia Slight [facility] Blood 07/05/2022 5:31 AM EST 07/05/2022 5:43 AM EST Narrative Resulting Agency Comment Spec In Lab Ian Duarte MD HEMATOLOGY ORDArthur SALDANA Performing Organization Address City/[facility]/ZIP Co de Phone Number [facility] [place] [address] * Bilirubin, Direct (07/05/2022 5:31 AM EST) [facility] Bili, Direct 0.1 0.0 - 0.3 mg/dL [facility] Blood 07/05/2022 5:31 AM EST 07/05/2022 5:43 AM EST Narrative Resulting Agency Comment Spec In Lab Hollie Perez MD CHEMISTRY ORDERABLE S Performing Organization Address City/[facility]/ZIP Co de Phone Number [facility] [place] [address] * (ABNORMAL) Differential, Automated (07/05/2022 5:31 AM EST) [facility] Neutrophils % 41.2 % [facility] Neutr Abs (ANC) 1.39(L) 1.70 - 6.10 x10(3)/[facility] Lymphocytes % 45.4 % [facility] Lymphocytes Abs 1.5 0.9 - 3.2 x10(3)/[facility] Monocytes % 11.6 % [facility] Monocyte Abs 0.4 0.3 - 0.9 x10(3)/[facility] Eosinophils % 0.6 % [facility] Eosinophils Abs 0.0 0.0 - 0.4 x10(3)/[facility] Basophils % 0.6 % [facility] Basophils Abs 0.0 0.0 - 0.1 x10(3)/[facility] Immature Gran % 0.60 % [facility] Comment: Immature granulocytes(IG's)percentage and absolute count will include metamyelocytes, myelocytes, and promyelocytes. Blood smears from CBCs yielding IG's will be scanned manually for concordance. If this scan disagrees with the automated IG or if promyelocytes are noted, a manual differential will be performed. Debora Gran Abs 0.02 0.00 - 0.04 x10(3)/[facility] Blood 07/05/2022 5:31 AM EST 07/05/2022 5:43 AM EST Narrative Resulting Agency Comment Spec In Lab Ian Duarte MD HEMATOLOGY CLEO SALDANA [facility] [place] [address] * (ABNORMAL) Hemogram (07/05/2022 5:31 AM EST) WBC 3.4(L) 4.0 - 9.5 x10(3)/[facility] RBC 3.20(L) 4.00 - 5.21 x10(6)/[facility] Hemoglobin 7.7(L) 11.7 - 15.5 g/dL [facility] Hematocrit 25.4(L) 35.7 - 45.8 % [facility] MCV 79.4(L) 82.6 - 94.4 [facility] MCH 24.1(L) 27.1 - 32.0 pg [facility] MCHC 30.3(L) 31.7 - 35.0 g/dL [facility] Platelets 240 145 - 357 x10(3)/[facility] RDWSD 56.9(H) 37.0 - 46.0 [facility] RDWCV 19.7(H) 11.5 - 14.1 % [facility] MPV 9.5 7.6 - 12.9 [facility] nRBC % Auto 0.0 % [facility] nRBC Abs Auto 0.000 0.000 - 0.000 x10(3)/[facility] Blood 07/05/2022 5:31 AM EST 07/05/2022 5:43 AM EST Narrative Resulting Agency Comment Spec In Lab Ian Duarte MD HEMATOLOGY CLEO SALDANA [facility] [place] [address] * (ABNORMAL) Comprehensive metabolic panel (non-fasting) (07/05/2022 5:31 AM EST) Glucose Lvl 85 65 - 199 mg/dL [facility] Comment:Diabetes: >=200 mg/d L plus symptoms BUN 6(L) 8 - 18 mg/dL [facility] Creatinine 0.29(L) 0.70 - 1.20 mg/dL [facility] Sodium 142 135 - 145 mmol/L [facility] Potassium 3.8 3.5 - 5.0 mmol/L [facility] Comment: Please note: ??Patients with WBC >100,000 may have falsely elevated Potassium levels. ??For accurate Potassium quantification in these patients send serum separator tube (gold top) for subsequent determinations. ??Contact the Clinical Chemistry Laboratory if there are any questions. Chloride 108(H) 98 - 107 mmol/L [facility] CO2 25 22 - 31 mmol/L [facility] Anion Gap 9 5 - 15 mmol/L [facility] Calcium 8.4(L) 8.5 - 10.5 mg/dL [facility] Total Protein 5.9(L) 6.1 - 8.0 g/dL [facility] Albumin 3.1(L) 3.2 - 5.2 g/dL [facility] AST 39(H) 0 - 30 unit/L [facility] ALT 74(H) 0 - 30 unit/L [facility] Alk Phos 209(H) 35 - 105 unit/L [facility] Total Bilirubin 0.4 0.2 - 1.3 mg/dL [facility] Estimated GFR 148 >=60 mL/min/1. 73 m?? [facility] [...] Lab Ian Duarte MD CHEMISTRY ORDER MYRANDA [facility] [place] [address] * IR All Drainage Procedures (07/04/2022 4:14 PM EST) Anatomical Region Laterality Modality X-Ray Angiograph y Narrative 07/04/2022 4:52 PM EST Preoperative Diagnosis: re accumulated Lumbar collection by CT, Fevers Postoperative Diagnosis: ?? Same Procedure Performed: Ultrasound and fluoroscopically guided drain placement. Operators: Mich Martino MD, Attending Estimated Blood Loss: Negligible. Fluoroscopy dose: ??Please see [facility] IR technologist record for procedural dose/time. Cefazolin/ [...] dilated over the wire and a 8.5 Bol[place]ian drain was advanced over the wire into [...] performed the entire procedure. Ian Duarte MD [facility] IR ORDERABL ES * (ABNORMAL) Differential, Automated (07/04/2022 6:07 AM EST) Neutrophils % 81.6 % [facility] Neutr Abs (ANC) 6.79(H) 1.70 - 6.10 x10(3)/[facility] LABORATORY Lymphocytes % 11.8 % [facility] Lymphocytes Abs 1.0 0.9 - 3.2 x10(3)/[facility] LABORATORY Monocytes % 6.3 % [facility] Monocyte Abs 0.5 0.3 - 0.9 x10(3)/[facility] LABORATORY Eosinophils % 0.0 % [facility] Eosinophils Abs 0.0 0.0 - 0.4 x10(3)/[facility] LABORATORY Basophils % 0.1 % [facility] Basophils Abs 0.0 0.0 - 0.1 x10(3)/[facility] LABORATORY Immature Gran % 0.20 % [facility] Comment: Immature granulocytes(IG's)percentage and absolute count will include metamyelocytes, myelocytes, and promyelocytes. Blood smears from CBCs yielding IG's will be scanned manually for concordance. If this scan disagrees with the automated IG or if promyelocytes are noted, a manual differential will be performed. Debora Gran Abs 0.02 0.00 - 0.04 x10(3)/[facility] LABORATORY Blood 07/04/2022 6:07 AM EST 07/04/2022 6:14 AM EST Narrative Resulting Agency Comment Spec In Lab Ian Duarte MD HEMATOLOGY ORDArthur SALDANA Performing Organization Address City/[facility]/ZIP Co de Phone Number [facility] [place] [address] * (ABNORMAL) Hemogram (07/04/2022 6:07 AM EST) WBC 8.3 4.0 - 9.5 x10(3)/[facility] LABORATORY RBC 3.38(L) 4.00 - 5.21 x10(6)/[facility] LABORATORY Hemoglobin 8.3(L) 11.7 - 15.5 g/dL [facility] Hematocrit 26.0(L) 35.7 - 45.8 % [facility] MCV 76.9(L) 82.6 - 94.4 fL [facility] MCH 24.6(L) 27.1 - 32.0 pg [facility] MCHC 31.9 31.7 - 35.0 g/dL [facility] Platelets 244 145 - 357 x10(3)/[facility] LABORATORY RDWSD 54.5(H) 37.0 - 46.0 [facility] LABORATORY RDWCV 19.5(H) 11.5 - 14.1 % [facility] MPV 9.3 7.6 - 12.9 [facility] LABOR[facility]ORY nRBC % Auto 0.0 % [facility] nRBC Abs Auto 0.000 0.000 - 0.000 x10(3)/[facility] LABORATORY Blood 07/04/2022 6:07 AM EST 07/04/2022 6:14 AM EST Narrative Resulting Agency Comment Spec In Lab Ian Duarte MD HEMATOLOGY ORDArthur SALDANA [facility] [place] [address] * Lactate, whole blood, send to lab ([facility] [place] (07/04/2022 6:07 AM EST) Lactate WB 1.9 0.5 - 2.2 mmol/L [facility] Blood 07/04/2022 6:07 AM EST 07/04/2022 6:14 AM EST Narrative Resulting Agency Comment Spec In Lab Yury Saavedra MD CHEMISTRY ORDERABLE S [facility] [place] [address] * (ABNORMAL) Basic Metabolic Panel (non-fasting) (07/04/2022 6:07 AM EST) Pathologist [facility] Glucose Lvl 114 65 - 199 mg/dL [facility] Comment:Diabetes: >=200 mg/d L plus symptoms BUN 8 8 - 18 mg/dL [facility] Creatinine 0.34(L) 0.70 - 1.20 mg/dL [facility] Sodium 134(L) 135 - 145 mmol/L [facility] Potassium 4.1 3.5 - 5.0 mmol/L [facility] Comment: Please note: ??Patients with WBC >100,000 may have falsely elevated Potassium levels. ??For accurate Potassium quantification in these patients send serum separator tube (gold top) for subsequent determinations. ??Contact the Clinical Chemistry Laboratory if there are any questions. Chloride 100 98 - 107 mmol/L [facility] CO2 24 22 - 31 mmol/L [facility] Anion Gap 10 5 - 15 mmol/L [facility] Calcium 8.4(L) 8.5 - 10.5 mg/dL [facility] Estimated GFR 143 >=60 mL/min/1. 73 m?? [facility] [...] MD CHEMISTRY ORDER MYRANDA Performing Organization Address [facility]/ZIP Co de Phone Number [facility] [place] [address] * (ABNORMAL) Urinalysis Microscopic Exam (07/04/2022 3:05 AM EST) RBC UA 2 0 - 4 /HPF [facility] WBC UA 2 0 - 5 /HPF [facility] Squam Epith UA 6(H) <=4 /HPF [facility] TriPhos Adina UA Occasional (A) None /HPF [facility] Clean Catch Urine 07/04/2022 3:05 AM EST 07/04/2022 3:10 AM EST Narrative Resulting Agency Comment Spec In Lab Yury Saavedra MD URINE ORDERABLES Performing Organization Address [facility] Co de Phone Number [facility] [place] [address] * (ABNORMAL) Urinalysis with reflex Culture (07/04/2022 3:05 AM EST) Glucose UA Negative Negative mg/dL [facility] Protein UA 30(A) Negative mg/dL [facility] Bilirubin UA Negative Negative mg/dL [facility] Comment: Clinical correlation required for positive Urine Bilirubin results as false positive may occur with some drugs and drug related products. If a false positive is suspected a serum total bilirubin should be considered if clinically indicated. Urobilinogen UA Normal Normal mg/dL [facility] pH UA 8.0 5.0 - 8.0 [facility] Blood UA Negative Negative mg/dL [facility] Ketones UA Negative Negative mg/dL [facility] Nitrite UA Negative Negative [facility] Leukocytes UA Trace(A) Negative [facility] Appearance UA Cloudy(A) Clear [facility] Spec [place] UA >=1.030(A) 1.005 - 1.030 [facility] Color UA Dark Yellow Yellow [facility] Culture Reflexed No [facility] Clean Catch Urine 07/04/2022 3:05 AM EST 07/04/2022 3:10 AM EST Narrative Resulting Agency Comment Spec In Lab Yury Saavedra MD URINE ORDERABLES Performing Organization Address City/[facility]/ZIP Co de Phone Number [facility] [place] [address] * (ABNORMAL) Lactate, whole blood, send to lab ([facility] [place]) (07/04/2022 12:50 AM EST) Pathologist [facility] Lactate WB 2.6(H) 0.5 - 2.2 mmol/L [facility] Blood 07/04/2022 12:5 0 AM EST 07/04/2022 1:02 AM EST Narrative Resulting Agency Comment Spec In Lab Yury Saavedra MD CHEMISTRY ORDERABLE S Performing Organization Address City/[facility]/ZIP Co de Phone Number [facility] [place] [address] * EKG 12 Lead (07/04/2022 12:16 AM EST) Ventricular rate 152 BPM MUSE SYSTEM Atrial Rate 152 BPM MUSE SYSTEM P-R Interval 112 ms MUSE SYSTEM QRS Duration 66 ms MUSE SYSTEM Q-T Interval 328 ms MUSE SYSTEM QTC Calculated (Bezet) 521 ms MUSE SYSTEM Calculated P [place] 13 degrees MUSE SYSTEM Calculated R [place] 7 degrees MUSE SYSTEM Calculated T [place] 54 degrees MUSE SYSTEM INTERPRETATION Sinus tachycardia Nonspecific T wave abnormality Abnormal ECG When compared with ECG of 01-JUL-2022 14:17, No significant change was found I personally reviewed the tracing and edited the fellows interpretation Confirmed by fellow Ravinder Garcia ([id number]) on 07/07/2022 4:08:27 AM Confirmed by MD CONTRERAS SALVATORE ([id number]) on 07/07/2022 10:33:36 AM MUSE SYSTEM 07/04/2022 12:1 6 AM EST 07/07/2022 10:33 AM EDT Yury Saavedra MD ECG ORDERABLES MUSE SYSTEM * Lavender Tube HOLD (07/03/2022 11:05 PM EST) Pathologist [facility] Lavender Hold Sample in lab. [facility] Blood Venous Draw / Unknown 07/03/2022 11:05 PM EST 07/03/2022 11:14 PM EST Yury Saavedra MD HEMATOLOGY ORDERABL ES Performing Organization Address City/[facility]/ZIP Co de Phone Number [facility] [place] [address] * (ABNORMAL) CRP, acute inflammation (07/03/2022 11:05 PM EST) Pathologist [facility] CRP 73.7(H) <=4.9 mg/L [facility] Blood 07/03/2022 11:0 5 PM EST 07/03/2022 11:14 PM EST Narrative Resulting Agency Comment Spec In Lab Yury Saavedra MD CHEMISTRY ORDERABLE S Performing Organization Address City/[facility]/ZIP Co de Phone Number [facility] [place] [address] * (ABNORMAL) Blood culture (07/03/2022 11:05 PM EST) Blood Culture Escherichia coli detected by PCR Isolate saved. If future testing is required, contact the Microbiology Transportation Engineer. (A) [facility] Gram Stain Anaerobic Growth detected in anaerobic bottle. Gram Negative Rods seen Results called to and read back by Zoila Rincon RN (A) [facility] Organism Escherichia coli(A) [facility] Organism Gram Negative Rods(A) [facility] Blood STRUCTURE OF RIGHT [...] Saavedra MD MICROBIOLOGY - BLOO D ORDERABLES [facility] [place] [address] * Blood culture (07/03/2022 10:45 PM EST) Blood Culture No growth at 5 days. [facility] Blood STRUCTURE OF LEFT HAND / Unknown 07/03/2022 10:45 PM EST 07/04/2022 Narrative Resulting Agency Comment Spec In Lab Yury Saavedra MD MICROBIOLOGY - BLOO D ORDERABLES [facility] [address] [place] [address] * CT Lumbar Spine w Contrast (07/03/2022 [...] questions please contact the health career development specialist that requested your imaging first. ? Narrative 07/03/2022 6:31 PM EST EXAMINATION: CT [...] have questions please contactthe health career development specialist that requested your imaging first. Ian Duarte MD IMG CT ORDERABL ES * (ABNORMAL) Differential, Automated (07/03/2022 10:08 AM EST) Neutrophils % 50.0 % [facility] Neutr Abs (ANC) 1.61(L) 1.70 - 6.10 x10(3)/[facility] LABORATORY Lymphocytes % 37.0 % [facility] Lymphocytes Abs 1.2 0.9 - 3.2 x10(3)/[facility] LABORATORY Monocytes % 10.9 % [facility] Monocyte Abs 0.4 0.3 - 0.9 x10(3)/[facility] LABORATORY Eosinophils % 0.9 % [facility] Eosinophils Abs 0.0 0.0 - 0.4 x10(3)/[facility] LABORATORY Basophils % 0.9 % [facility] Basophils Abs 0.0 0.0 - 0.1 x10(3)/[facility] LABORATORY Immature Gran % 0.30 % [facility] Comment: Immature granulocytes(IG's)percentage and absolute count will include metamyelocytes, myelocytes, and promyelocytes. Blood smears from CBCs yielding IG's will be scanned manually for concordance. If this scan disagrees with the automated IG or if promyelocytes are noted, a manual differential will be performed. Debora Gran Abs 0.01 0.00 - 0.04 x10(3)/ L [facility] Blood 07/03/2022 10:0 8 AM EST 07/03/2022 10:19 AM EST Narrative Resulting Agency Comment Spec In Lab Ian Duarte MD HEMATOLOGY CLEO SALDANA [facility] [place] [address] * (ABNORMAL) Hemogram (07/03/2022 10:08 AM EST) WBC 3.2(L) 4.0 - 9.5 x10(3)/[facility] LABORATORY RBC 4.08 4.00 - 5.21 x10(6)/[facility] LABORATORY Hemoglobin 9.9(L) 11.7 - 15.5 g/dL [facility] Hematocrit 32.2(L) 35.7 - 45.8 % [facility] MCV 78.9(L) 82.6 - 94.4 fL [facility] MCH 24.3(L) 27.1 - 32.0 pg [facility] MCHC 30.7(L) 31.7 - 35.0 g/dL [facility] Platelets 307 145 - 357 x10(3)/[facility] LABORATORY RDWSD 53.3(H) 37.0 - 46.0 fL [facility] RDWCV 19.0(H) 11.5 - 14.1 % [facility] MPV 9.2 7.6 - 12.9 [facility] LABORATORY nRBC % Auto 0.0 % [facility] nRBC Abs Auto 0.000 0.000 - 0.000 x10(3)/[facility] LABORATORY Blood 07/03/2022 10:0 8 AM EST 07/03/2022 10:19 AM EST Narrative Resulting Agency Comment Spec In Lab Ian Duarte MD HEMATOLOGY CLEO SALDANA [facility] [place] [address] * (ABNORMAL) Sedimentation rate (07/03/2022 10:08 AM EST) Sed Rate 110(H) 2 - 37 mm/hr [facility] [...] Lab Ian Duarte MD HEMATOLOGY CLEO SALDANA [facility] [place] [address] * XR Chest One View (07/02/2022 5:04 [...] questions please contact the health career development specialist that requested your imaging first. ? [...] have questions please contactthe health career development specialist that requested your imaging first. Ian Duarte MD IMG DX ORDERABL ES * (ABNORMAL) Urinalysis Microscopic Exam (07/02/2022 3:35 PM EST) RBC UA 7(H) 0 - 4 /HPF [facility] WBC UA 3 0 - 5 /HPF [facility] Squam Epith UA 4 <=4 /HPF [facility] Hyaline Cast UA 3(H) 0 - 2 /LPF [facility] Straight Catheter Urine 07/02/2022 3:35 PM EST 07/02/2022 4:10 PM EST Narrative Resulting Agency Comment Spec In Lab Ian Duarte MD URINE ORDERABLE S [facility] [place] [address] * (ABNORMAL) Urinalysis with reflex Culture (07/02/2022 3:35 PM EST) Glucose UA Negative Negative mg/dL [facility] Protein UA Negative Negative mg/dL [facility] Bilirubin UA Negative Negative mg/dL [facility] Comment: Clinical correlation required for positive Urine Bilirubin results as false positive may occur with some drugs and drug related products. If a false positive is suspected a serum total bilirubin should be considered if clinically indicated. Urobilinogen UA Normal Normal mg/dL [facility] pH UA 7.5 5.0 - 8.0 [facility] Blood UA Trace(A) Negative mg/dL [facility] Ketones UA Negative Negative mg/dL [facility] Nitrite UA Negative Negative [facility] Leukocytes UA Negative Negative [facility] Appearance UA Clear Clear [facility] Spec [place] UA 1.016 1.005 - 1.030 [facility] Color UA Yellow Yellow [facility] Culture Reflexed No [facility] Straight Catheter Urine 07/02/2022 3:35 PM EST 07/02/2022 4:10 PM EST Narrative Resulting Agency Comment Spec In Lab Ian Duarte MD URINE ORDERABLE S [facility] [place] [address] * Differential, Automated (07/02/2022 6:15 AM EST) Neutrophils % 57.6 % [facility] Neutr Abs (ANC) 1.89 1.70 - 6.10 x10(3)/[facility] LABORATORY Lymphocytes % 32.3 % [facility] Lymphocytes Abs 1.1 0.9 - 3.2 x10(3)/[facility] Monocytes % 9.5 % [facility] Monocyte Abs 0.3 0.3 - 0.9 x10(3)/[facility]ORATORY Eosinophils % 0.0 % [facility] Eosinophils Abs 0.0 0.0 - 0.4 x10(3)/[facility]ORY Basophils % 0.3 % [facility] Basophils Abs 0.0 0.0 - 0.1 x10(3)/[facility]ORAT[facility] Immature Gran % 0.30 % [facility] Comment: Immature granulocytes(IG's)percentage and absolute count will include metamyelocytes, myelocytes, and promyelocytes. Blood smears from CBCs yielding IG's will be scanned manually for concordance. If this scan disagrees with the automated IG or if promyelocytes are noted, a manual differential will be performed. Debora Gran Abs 0.01 0.00 - 0.04 x10(3)/[facility] Blood 07/02/2022 6:15 AM EST 07/02/2022 6:49 AM EST Narrative Resulting Agency Comment Spec In Lab Ian Duarte MD HEMATOLOGY CLEO SALDANA [facility] [place] [address] * (ABNORMAL) Hemogram (07/02/2022 6:15 AM EST) WBC 3.3(L) 4.0 - 9.5 x10(3)/[facility]ORY RBC 3.98(L) 4.00 - 5.21 x10(6)/[facility] Hemoglobin 9.6(L) 11.7 - 15.5 g/dL [facility] Hematocrit 30.7(L) 35.7 - 45.8 % [facility] MCV 77.1(L) 82.6 - 94.4 fL [facility] MCH 24.1(L) 27.1 - 32.0 pg [facility] MCHC 31.3(L) 31.7 - 35.0 g/dL [facility] Platelets 336 145 - 357 x10(3)/[facility] RDWSD 51.1(H) 37.0 - 46.0 fL [facility] RDWCV 18.6(H) 11.5 - 14.1 % [facility] MPV 9.1 7.6 - 12.9 fL [facility] nRBC % Auto 0.0 % [facility] nRBC Abs Auto 0.000 0.000 - 0.000 x10(3)/[facility] Blood 07/02/2022 6:15 AM EST 07/02/2022 6:49 AM EST Narrative Resulting Agency Comment Spec In Lab Ian Duarte MD HEMATOLOGY ORDE RABLES Performing Organization Address [facility]/ZIP Co de Phone Number [facility] [place] [address] * TSH [place] (07/02/2022 6:15 AM EST) TSH 1.45 0.27 - 4.20 mcIU/mL [facility] Comment: Reference Interval (mcIU/mL): Females: ??First Trimester: 0.23-3.88 ??Second Trimester: 0.22-3.90 ??Third Trimester: 0.44-4.66 Blood 07/02/2022 6:15 AM EST 07/02/2022 6:49 AM EST Narrative Resulting Agency Comment Spec In Lab Ian Duarte MD CHEMISTRY ORDER MYRANDA Performing Organization Address City/[facility]/ZIP Co de Phone Number [facility] [place] [address] * (ABNORMAL) Basic Metabolic Panel (non-fasting) (07/02/2022 6:15 AM EST) Glucose Lvl 91 65 - 199 mg/dL [facility] Comment:Diabetes: >=200 mg/d L plus symptoms BUN 5(L) 8 - 18 mg/dL [facility] Creatinine 0.24(L) 0.70 - 1.20 mg/dL [facility] Sodium 134(L) 135 - 145 mmol/L [facility] Potassium 4.0 3.5 - 5.0 mmol/L [facility] Comment: Please note: ??Patients with WBC >100,000 may have falsely elevated Potassium levels. ??For accurate Potassium quantification in these patients send serum separator tube (gold top) for subsequent determinations. ??Contact the Clinical Chemistry Laboratory if there are any questions. Chloride 100 98 - 107 mmol/L [facility] CO2 24 22 - 31 mmol/L [facility] Anion Gap 10 5 - 15 mmol/L [facility] Calcium 8.7 8.5 - 10.5 mg/dL [facility] Estimated GFR 155 >=60 mL/min/1. 73 m?? [facility] [...] Lab Ian Duarte MD CHEMISTRY ORDER MYRANDA [facility] [place] [address] * (ABNORMAL) Sedimentation rate (07/02/2022 6:15 AM EST) Sed Rate 89(H) 2 - 37 mm/hr [facility] Comment: Effective April 06, 2019 new capillary photometric technology has resulted in a change in reference ranges. It is recommended that each ESR result be reviewed with its own age appropriate reference range. Blood 07/02/2022 6:15 AM EST 07/02/2022 6:49 AM EST Narrative Resulting Agency Comment Spec In Lab Ian Duarte MD HEMATOLOGY ORDE RABJOE Performing Organization Address City/[facility]/ZIP Co de Phone Number [facility] [place] [address] * Blood culture (07/01/2022 8:21 PM EST) Blood Culture No growth at 5 days. [facility] Blood 07/01/2022 8:21 PM EST 07/01/2022 8:57 PM EST Comment:RH Narrative Resulting Agency Comment Spec In Lab Ian Duarte MD MICROBIOLOGY - BLOOD ORDERABLES Performing Organization Address [facility] Co de Phone Number [facility] [place] [address] * Magnesium (07/01/2022 6:14 PM EST) Magnesium 0.74 0.69 - 1.07 mmol/L [facility] Blood 07/01/2022 6:14 PM EST 07/01/2022 6:21 PM EST Narrative Resulting Agency Comment Spec In Lab Ian Duarte MD CHEMISTRY ORDER MYRANDA Performing Organization Address [facility] Co de Phone Number [facility] [place] [address] * Lactate, whole blood, send to lab ([facility] [place] (07/01/2022 6:14 PM EST) Lactate WB 1.7 0.5 - 2.2 mmol/L [facility] Blood 07/01/2022 6:14 PM EST 07/01/2022 6:21 PM EST Narrative Resulting Agency Comment Spec In Lab Ian Duarte MD CHEMISTRY ORDER MYRANDA [facility] [place] [address] * IR Drain Check/Change/Remove (07/01/2022 3:35 PM [...] sterile barrier technique was used throughout. ?? Scientist Engineer fluoroscopic images were obtained. ??Contrast was injected [...] (Bezet) 443 ms MUSE SYSTEM Calculated P [place] 37 degrees MUSE SYSTEM Calculated R [place] 62 degrees MUSE SYSTEM Calculated T [place] 19 degrees MUSE SYSTEM INTERPRETATION Sinus tachycardia Nonspecific T wave abnormality Otherwise normal ECG When compared with ECG of 29-JUN-2022 08:55, No significant change was found Confirmed by Lyndon Lafleur ([id number]) on 07/02/2022 5:10:53 PM MUSE SYSTEM 07/01/2022 2:17 PM EST 07/02/2022 5:10 PM EST Ian Duarte MD ECG ORDERABLES MUSE SYSTEM * Differential, Automated (07/01/2022 5:50 AM EST) Neutrophils % 75.5 % [facility] Neutr Abs (ANC) 4.41 1.70 - 6.10 x10(3)/[facility] Lymphocytes % 15.0 % [facility] Lymphocytes Abs 0.9 0.9 - 3.2 x10(3)/[facility] Monocytes % 7.7 % [facility] Monocyte Abs 0.4 0.3 - 0.9 x10(3)/[facility] Eosinophils % 1.0 % [facility] Eosinophils Abs 0.1 0.0 - 0.4 x10(3)/[facility] Basophils % 0.5 % [facility] [place] Basophils Abs 0.0 0.0 - 0.1 x10(3)/[facility] Immature Gran % 0.30 % [facility] Comment: Immature granulocytes(IG's)percentage and absolute count will include metamyelocytes, myelocytes, and promyelocytes. Blood smears from CBCs yielding IG's will be scanned manually for concordance. If this scan disagrees with the automated IG or if promyelocytes are noted, a manual differential will be performed. Debora Gran Abs 0.02 0.00 - 0.04 x10(3)/[facility] Blood 07/01/2022 5:50 AM EST 07/01/2022 6:17 AM EST Narrative Resulting Agency Comment Spec In Lab Estevan Alfaro MD HEMATOLOGY ORDERABLE S [facility] [place] [address] * (ABNORMAL) Hemogram (07/01/2022 5:50 AM EST) WBC 5.8 4.0 - 9.5 x10(3)/[facility] LAB[facility] RBC 3.84(L) 4.00 - 5.21 x10(6)/[facility] Hemoglobin 9.3(L) 11.7 - 15.5 g/dL [facility] Hematocrit 29.6(L) 35.7 - 45.8 % [facility] MCV 77.1(L) 82.6 - 94.4 fL [facility] MCH 24.2(L) 27.1 - 32.0 pg [facility] MCHC 31.4(L) 31.7 - 35.0 g/dL [facility] LABORATORY Platelets 352 145 - 357 x10(3)/[facility] LABORATORY RDWSD 51.2(H) 37.0 - 46.0 fL [facility] RDWCV 18.6(H) 11.5 - 14.1 % [facility] MPV 9.3 7.6 - 12.9 fL [facility] nRBC % Auto 0.0 % [facility] nRBC Abs Auto 0.000 0.000 - 0.000 x10(3)/[facility] LABORATORY Blood 07/01/2022 5:50 AM EST 07/01/2022 6:17 AM EST Narrative Resulting Agency Comment Spec In Lab Estevan Alfaro MD HEMATOLOGY ORDERABLE S [facility] [place] [address] * (ABNORMAL) CRP, acute inflammation (07/01/2022 5:50 AM EST) CRP 53.1(H) <=4.9 mg/L [facility] Comment:result rechecked-KS Blood 07/01/2022 5:50 AM EST 07/01/2022 6:17 AM EST Narrative Resulting Agency Comment Spec In Lab Ian Duarte MD CHEMISTRY ORDER MYRANDA Performing Organization Address City/[facility]/ZIP Co de Phone Number [facility] [place] [address] * (ABNORMAL) Sedimentation rate (07/01/2022 5:50 AM EST) Sed Rate >119(H) 2 - 37 mm/hr [facility] Comment: Effective April 06, 2019 new capillary photometric technology has resulted in a change in reference ranges. It is recommended that each ESR result be reviewed with its own age appropriate reference range. Blood 07/01/2022 5:50 AM EST 07/01/2022 6:17 AM EST Narrative Resulting Agency Comment Spec In Lab Ian Duarte MD HEMATOLOGY CLEO SALDANA [facility] [place] [address] * (ABNORMAL) BMP w/fasting Glucose (07/01/2022 5:50 AM EST) Glucose Fasting 95 65 - 99 mg/dL [facility] Comment: ?Fasting* Glucose Interpretive Criteria Normal [...] of Diabetes Mellitus, Position Statement from the [place] [employer]. ??Diabetes Care, Volume 33, Supplement 1, Apr 2009 BUN 10 8 - 18 mg/dL [facility] Creatinine 0.25(L) 0.70 - 1.20 mg/dL [facility] Sodium 138 135 - 145 mmol/L [facility] Potassium 4.1 3.5 - 5.0 mmol/L [facility] Comment: Please note: ??Patients with WBC >100,000 may have falsely elevated Potassium levels. ??For accurate Potassium quantification in these patients send serum separator tube (gold top) for subsequent determinations. ??Contact the Clinical Chemistry Laboratory if there are any questions. Chloride 103 98 - 107 mmol/L [facility] CO2 24 22 - 31 mmol/L [facility] Anion Gap 11 5 - 15 mmol/L [facility] Calcium 9.0 8.5 - 10.5 mg/dL [facility] Estimated GFR 154 >=60 mL/min/1. 73 m?? [facility] [...] In Lab Estevan Alfaro MD CHEMISTRY ORDERABLES [facility] [place] [address] * Differential, Automated (06/30/2022 4:29 AM EST) Neutrophils % 57.6 % [facility] Neutr Abs (ANC) 3.68 1.70 - 6.10 x10(3)/[facility] LABORATORY Lymphocytes % 33.2 % [facility] Lymphocytes Abs 2.1 0.9 - 3.2 x10(3)/[facility] LABORATORY Monocytes % 7.0 % [facility] Monocyte Abs 0.4 0.3 - 0.9 x10(3)/[facility] LABORATORY Eosinophils % 1.4 % [facility] Eosinophils Abs 0.1 0.0 - 0.4 x10(3)/[facility] LABORATORY Basophils % 0.5 % [facility] Basophils Abs 0.0 0.0 - 0.1 x10(3)/[facility] LABORATORY Immature Gran % 0.30 % [facility] Comment: Immature granulocytes(IG's)percentage and absolute count will include metamyelocytes, myelocytes, and promyelocytes. Blood smears from CBCs yielding IG's will be scanned manually for concordance. If this scan disagrees with the automated IG or if promyelocytes are noted, a manual differential will be performed. Debora Gran Abs 0.02 0.00 - 0.04 x10(3)/[facility] LABORATORY Blood 06/30/2022 4:29 AM EST 06/30/2022 4:51 AM EST Narrative Resulting Agency Comment Spec In Lab Estevan Alfaro MD HEMATOLOGY ORDERABLE S Performing Organization Address City/State/[facility] Co de Phone Number [facility] [place] [address] * (ABNORMAL) Hemogram (06/30/2022 4:29 AM EST) WBC 6.4 4.0 - 9.5 x10(3)/[facility] LABORATORY RBC 3.96(L) 4.00 - 5.21 x10(6)/[facility] LABORATORY Hemoglobin 9.4(L) 11.7 - 15.5 g/dL [facility] Hematocrit 30.4(L) 35.7 - 45.8 % [facility] MCV 76.8(L) 82.6 - 94.4 fL [facility] MCH 23.7(L) 27.1 - 32.0 pg [facility] MCHC 30.9(L) 31.7 - 35.0 g/dL [facility] Platelets 349 145 - 357 x10(3)/[facility] LABORATORY RDWSD 50.4(H) 37.0 - 46.0 fL [facility] RDWCV 18.4(H) 11.5 - 14.1 % [facility] MPV 9.3 7.6 - 12.9 [facility] LABORATORY nRBC % Auto 0.0 % [facility] nRBC Abs Auto 0.000 0.000 - 0.000 x10(3)/mcL [facility] Blood 06/30/2022 4:29 AM EST 06/30/2022 4:51 AM EST Narrative Resulting Agency Comment Spec In Lab Estevan Alfaro MD HEMATOLOGY ORDERABLE S Performing Organization Address City/State/[facility] Co de Phone Number [facility] [place] [address] * (ABNORMAL) BMP w/fasting Glucose (06/30/2022 4:29 AM EST) Glucose Fasting 86 65 - 99 mg/dL [facility] Comment: ?Fasting* Glucose Interpretive Criteria Normal [...] of Diabetes Mellitus, Position Statement from the [place] [employer]. ??Diabetes Care, Volume 33, Supplement 1, Apr 2009 BUN 11 8 - 18 mg/dL [facility] Creatinine 0.22(L) 0.70 - 1.20 mg/dL [facility] Sodium 142 135 - 145 mmol/L [facility] Potassium 3.7 3.5 - 5.0 mmol/L [facility] Comment: Please note: ??Patients with WBC >100,000 may have falsely elevated Potassium levels. ??For accurate Potassium quantification in these patients send serum separator tube (gold top) for subsequent determinations. ??Contact the Clinical Chemistry Laboratory if there are any questions. Chloride 105 98 - 107 mmol/L [facility] CO2 25 22 - 31 mmol/L [facility] Anion Gap 12 5 - 15 mmol/L [facility] Calcium 8.9 8.5 - 10.5 mg/dL [facility] Estimated GFR 159 >=60 mL/min/1. 73 m?? [facility] [...] In Lab Estevan Alfaro MD CHEMISTRY ORDERABLES [facility] [place] [address] * EKG 12 Lead (06/29/2022 8:55 AM EST) Ventricular rate 112 BPM MUSE SYSTEM Atrial Rate 112 BPM MUSE SYSTEM P-R Interval 124 ms MUSE SYSTEM QRS Duration 78 ms MUSE SYSTEM Q-T Interval 336 ms MUSE SYSTEM QTC Calculated (Bezet) 458 ms MUSE SYSTEM Calculated P [place] 22 degrees MUSE SYSTEM Calculated R [place] 8 degrees MUSE SYSTEM Calculated T [place] 69 degrees MUSE SYSTEM INTERPRETATION Sinus tachycardia Nonspecific T wave abnormality Abnormal ECG When compared with ECG of 26-JUN-2022 20:46, Minimal criteria for Inferior infarct are no longer Present Nonspecific T wave abnormality, worse in Lateral leads Confirmed by MD Mele, Luba ([id number]) on 06/29/2022 9:49:48 PM MUSE SYSTEM 06/29/2022 8:55 AM EST 06/29/2022 9:49 PM EST Estevan Alfaro MD ECG ORDERABLES Performing Organization Address City/[facility]/ZIP Co de Phone Number MUSE SYSTEM * TSH (06/29/2022 5:58 AM EST) [facility] TSH 1.84 0.27 - 4.20 mcIU/mL [facility] Comment: Reference Interval (mcIU/mL): Females: ??First Trimester: 0.23-3.88 ??Second Trimester: 0.22-3.90 ??Third Trimester: 0.44-4.66 Blood Venous Draw / Unknown 06/29/2022 5:58 AM EST 06/29/2022 6:10 AM EST Narrative Resulting Agency Comment Spec In Lab Estevan Alfaro MD CHEMISTRY ORDERABLES Performing Organization Address [facility] Co de Phone Number [facility] [place] [address] * Magnesium (06/29/2022 5:58 AM EST) [facility] Magnesium 0.88 0.69 - 1.07 mmol/L [facility] Blood Venous Draw / Unknown 06/29/2022 5:58 AM EST 06/29/2022 6:10 AM EST Narrative Resulting Agency Comment Spec In Lab Estevan Alfaro MD CHEMISTRY ORDERABLES Performing Organization Address City/[facility] Co de Phone Number [facility] [place] [address] * Differential, Automated (06/29/2022 5:58 AM EST) [facility] Neutrophils % 61.0 % [facility] Neutr Abs (ANC) 3.44 1.70 - 6.10 x10(3)/[facility] LABORATORY Lymphocytes % 26.5 % [facility] Lymphocytes Abs 1.5 0.9 - 3.2 x10(3)/[facility] LABORATORY Monocytes % 9.0 % [facility] Monocyte Abs 0.5 0.3 - 0.9 x10(3)/[facility] LABORATORY Eosinophils % 2.1 % [facility] Eosinophils Abs 0.1 0.0 - 0.4 x10(3)/[facility] LABORATORY Basophils % 0.9 % [facility] Basophils Abs 0.0 0.0 - 0.1 x10(3)/[facility] LABORATORY Immature Gran % 0.50 % [facility] Comment: Immature granulocytes(IG's)percentage and absolute count will include metamyelocytes, myelocytes, and promyelocytes. Blood smears from CBCs yielding IG's will be scanned manually for concordance. If this scan disagrees with the automated IG or if promyelocytes are noted, a manual differential will be performed. Debora Gran Abs 0.03 0.00 - 0.04 x10(3)/[facility] LABORATORY Blood 06/29/2022 5:58 AM EST 06/29/2022 6:06 AM EST Narrative Resulting Agency Comment Spec In Lab Estevan Alfaro MD HEMATOLOGY ORDERABLE S [facility] [place] [address] * (ABNORMAL) Hemogram (06/29/2022 5:58 AM EST) WBC 5.6 4.0 - 9.5 x10(3)/[facility] LABORATORY RBC 4.11 4.00 - 5.21 x10(6)/[facility] LABORATORY Hemoglobin 9.8(L) 11.7 - 15.5 g/dL [facility] Hematocrit 31.7(L) 35.7 - 45.8 % [facility] MCV 77.1(L) 82.6 - 94.4 fL [facility] MCH 23.8(L) 27.1 - 32.0 pg [facility] MCHC 30.9(L) 31.7 - 35.0 g/dL [facility] Platelets 345 145 - 357 x10(3)/[facility] LABORATORY RDWSD 50.5(H) 37.0 - 46.0 fL [facility] RDWCV 18.3(H) 11.5 - 14.1 % [facility] MPV 9.2 7.6 - 12.9 fL [facility] nRBC % Auto 0.0 % [facility] nRBC Abs Auto 0.000 0.000 - 0.000 x10(3)/[facility] LABORATORY Blood 06/29/2022 5:58 AM EST 06/29/2022 6:06 AM EST Narrative Resulting Agency Comment Spec In Lab Estevan Alfaro MD HEMATOLOGY ORDERABLE S Performing Organization Address City/State/[facility] Co de Phone Number [facility] [place] [address] * (ABNORMAL) BMP w/fasting Glucose (06/29/2022 5:58 AM EST) Glucose Fasting 90 65 - 99 mg/dL [facility] Comment: ?Fasting* Glucose Interpretive Criteria Normal [...] of Diabetes Mellitus, Position Statement from the [place] [employer]. ??Diabetes Care, Volume 33, Supplement 1, Apr 2009 BUN 11 8 - 18 mg/dL [facility] Creatinine 0.25(L) 0.70 - 1.20 mg/dL [facility] Sodium 134(L) 135 - 145 mmol/L [facility] Potassium 4.1 3.5 - 5.0 mmol/L [facility] Comment: Please note: ??Patients with WBC >100,000 may have falsely elevated Potassium levels. ??For accurate Potassium quantification in these patients send serum separator tube (gold top) for subsequent determinations. ??Contact the Clinical Chemistry Laboratory if there are any questions. Chloride 102 98 - 107 mmol/L [facility] CO2 21(L) 22 - 31 mmol/L [facility] Anion Gap 11 5 - 15 mmol/L [facility] Calcium 9.0 8.5 - 10.5 mg/dL [facility] Estimated GFR 154 >=60 mL/min/1. 73 m?? [facility] [...] In Lab Estevan Alfaro MD CHEMISTRY ORDERABLES [facility] [place] [address] * (ABNORMAL) Respiratory Panel PCR (06/28/2022 2:58 PM EST) Resp Panel Source [employer] MA RY [facility] Resp Panel PCR Positive(A) Negative MAR Y [facility] Comment: Respiratory Panels are performed on the FilmArray, using multiplexed PCR nucleic acid detection. ??Negative results do not preclude respiratory infection and should not be used as the sole basis for diagnosis, treatment or other management decisions. Adenovirus Not Detected Not Detected [facility] Coronavirus HKU1 Not Detected Not Detected [facility] Coronavirus NL63 Not Detected Not Detected [facility] Coronavirus 229E Not Detected Not Detected [facility] Coronavirus OC43 Not Detected Not Detected [facility] SARS-CoV-2 Not Detected Not Detected [facility] Comment: Testing for SARS-CoV-2 (Severe acute respiratory syndrome coronavirus 2) to aid in the diagnosis of COVID-19 is performed using the [employer].come Respiratory Panel 2.1 ([employer]) as authorized by the FDA issued Emergency Use Authorization (EUA). This panel also tests for multiple other viral and bacterial pathogens. This assay is intended for In-vitro Diagnostic (IVD) use with nasopharyngeal swabs in viral transport media. The assay is performed based on the instructions for use and additional guidance provided by the FDA. Testing is performed in laboratories within the [facility], each of which is certified under the [...] fact sheets at the following FDA website: https://www.fda.gov/medical-devices/szogsybpgdk-vutqaah-1877-nyspc-42-rbjpgjrbd- use-a etctrjwkqoxnt-xkzapwj-fnrlclc/mhntf-oiqsogstaqr-jtcn Human Metapneumovirus Not Detected Not Detected [facility] Human Rhino/Enterovirus Not Detected Not Detected [facility] Influenza A Not Detected Not Detected [facility] Influenza B Not Detected Not Detected [facility] Parainfluenza 1 Not Detected Not Detected [facility] Parainfluenza 2 Not Detected Not Detected [facility] Parainfluenza 3 Detected(A) Not Detected [facility] Parainfluenza 4 Not Detected Not Detected [facility] Respiratory Syncytial Virus Not Detected Not Detected [facility] Chlamydophila pneumoniae Not Detected Not Detected [facility] Mycoplasma pneumoniae Not Detected Not Detected [facility] Nasopharyngeal Swab 06/29/19 2:58 PM EST 06/28/2022 4:24 PM EST Narrative Resulting Agency Comment Spec In Lab Estevan Alfaro MD MICROBIOLOGY - GENER AL ORDERABLES [facility] [place] [address] * Differential, Automated (06/28/2022 5:38 AM EST) Neutrophils % 54.1 % [facility] Neutr Abs (ANC) 3.04 1.70 - 6.10 x10(3)/mcL [facility] Lymphocytes % 34.3 % [facility] Lymphocytes Abs 1.9 0.9 - 3.2 x10(3)/[facility] LABORATORY Monocytes % 8.7 % [facility] Monocyte Abs 0.5 0.3 - 0.9 x10(3)/[facility] LABORATORY Eosinophils % 2.0 % [facility] Eosinophils Abs 0.1 0.0 - 0.4 x10(3)/[facility] LABORATORY Basophils % 0.5 % [facility] Basophils Abs 0.0 0.0 - 0.1 x10(3)/[facility] LABORATORY Immature Gran % 0.40 % [facility] Comment: Immature granulocytes(IG's)percentage and absolute count will include metamyelocytes, myelocytes, and promyelocytes. Blood smears from CBCs yielding IG's will be scanned manually for concordance. If this scan disagrees with the automated IG or if promyelocytes are noted, a manual differential will be performed. Debora Gran Abs 0.02 0.00 - 0.04 x10(3)/[facility] LABORATORY Blood 06/28/2022 5:38 AM EST 06/28/2022 5:54 AM EST Narrative Resulting Agency Comment Spec In Lab Anurag Call DO HEMATOLOGY ORDERABLE S Performing Organization Address City/State/[facility] Co de Phone Number [facility] [place] [address] * (ABNORMAL) Hemogram (06/28/2022 5:38 AM EST) WBC 5.6 4.0 - 9.5 x10(3)/[facility] LABORATORY RBC 4.08 4.00 - 5.21 x10(6)/[facility] LABORATORY Hemoglobin 9.9(L) 11.7 - 15.5 g/dL [facility] Hematocrit 31.6(L) 35.7 - 45.8 % [facility] MCV 77.5(L) 82.6 - 94.4 fL [facility] MCH 24.3(L) 27.1 - 32.0 pg [facility] MCHC 31.3(L) 31.7 - 35.0 g/dL [facility] Platelets 371(H) 145 - 357 x10(3)/[facility] LABORATORY RDWSD 50.5(H) 37.0 - 46.0 fL [facility] RDWCV 18.2(H) 11.5 - 14.1 % [facility] MPV 9.3 7.6 - 12.9 [facility] LABORATORY nRBC % Auto 0.0 % [facility] nRBC Abs Auto 0.000 0.000 - 0.000 x10(3)/[facility] LABORATORY Blood 06/28/2022 5:38 AM EST 06/28/2022 5:54 AM EST Narrative Resulting Agency Comment Spec In Lab Anurag Call DO HEMATOLOGY ORDERABLE S Performing Organization Address City/[facility] Co de Phone Number [facility] [place] [address] * Magnesium (06/28/2022 5:38 AM EST) Pathologist [facility] Magnesium 0.78 0.69 - 1.07 mmol/L [facility] Blood 06/28/2022 5:38 AM EST 06/28/2022 5:54 AM EST Narrative Resulting Agency Comment Spec In Lab Anurag Call DO CHEMISTRY ORDERABLES Performing Organization Address [facility]/ZIP Co de Phone Number [facility] [place] [address] * (ABNORMAL) Basic Metabolic Panel (non-fasting) (06/28/2022 5:38 AM EST) Glucose Lvl 95 65 - 199 mg/dL [facility] Comment:Diabetes: >=200 mg/d L plus symptoms BUN 11 8 - 18 mg/dL [facility] Creatinine 0.27(L) 0.70 - 1.20 mg/dL [facility] Sodium 137 135 - 145 mmol/L [facility] Potassium 4.0 3.5 - 5.0 mmol/L [facility] Comment: Please note: ??Patients with WBC >100,000 may have falsely elevated Potassium levels. ??For accurate Potassium quantification in these patients send serum separator tube (gold top) for subsequent determinations. ??Contact the Clinical Chemistry Laboratory if there are any questions. Chloride 102 98 - 107 mmol/L [facility] CO2 25 22 - 31 mmol/L [facility] Anion Gap 10 5 - 15 mmol/L [facility] Calcium 9.1 8.5 - 10.5 mg/dL [facility] Estimated GFR [...] In Lab Anurag Call DO CHEMISTRY ORDERABLES [facility] [place] [address] * (ABNORMAL) CRP, acute inflammation (06/28/2022 5:38 AM EST) CRP 53.8(H) <=4.9 mg/L [facility] Blood 06/28/2022 5:38 AM EST 06/28/2022 5:54 AM EST Narrative Resulting Agency Comment Spec In Lab Anurag Call DO CHEMISTRY ORDERABLES Performing Organization Address [facility] Co de Phone Number [facility] [place] [address] * (ABNORMAL) Sedimentation rate (06/28/2022 5:38 AM EST) Pathologist [facility] Sed Rate 113(H) 2 - 37 mm/hr [facility] DO HEMATOLOGY ORDERABLE S Performing Organization Address City/[facility] Co de Phone Number [facility] [place] [address] * Differential, Automated (06/27/2022 5:58 AM EST) [facility] Neutrophils % 50.4 % [facility] Neutr Abs (ANC) 2.79 1.70 - 6.10 x10(3)/[facility] Lymphocytes % 38.7 % [facility] Lymphocytes Abs 2.1 0.9 - 3.2 x10(3)/[facility] Monocytes % 8.0 % [facility] Monocyte Abs 0.4 0.3 - 0.9 x10(3)/[facility]OR[facility] Eosinophils % 1.8 % [facility] Eosinophils Abs 0.1 0.0 - 0.4 x10(3)/[facility]OR[facility] Basophils % 0.7 % [facility] Basophils Abs 0.0 0.0 - 0.1 x10(3)/[facility]OR[facility] Immature Gran % 0.40 % [facility] Comment: Immature granulocytes(IG's)percentage and absolute count will include metamyelocytes, myelocytes, and promyelocytes. Blood smears from CBCs yielding IG's will be scanned manually for concordance. If this scan disagrees with the automated IG or if promyelocytes are noted, a manual differential will be performed. Debora Gran Abs 0.02 0.00 - 0.04 x10(3)/[facility] Blood 06/27/2022 5:58 AM EST 06/27/2022 6:24 AM EST Narrative Resulting Agency Comment Spec In Lab Eddi Vázquez MD HEMATOLOGY ORDERABLE S Performing Organization Address City/State/[facility] Co de Phone Number [facility] [place] [address] * (ABNORMAL) Hemogram (06/27/2022 5:58 AM EST) WBC 5.5 4.0 - 9.5 x10(3)/[facility] LABORATORY RBC 3.85(L) 4.00 - 5.21 x10(6)/[facility] Hemoglobin 9.2(L) 11.7 - 15.5 g/dL [facility] Hematocrit 30.0(L) 35.7 - 45.8 % [facility] MCV 77.9(L) 82.6 - 94.4 fL [facility] MCH 23.9(L) 27.1 - 32.0 pg [facility] MCHC 30.7(L) 31.7 - 35.0 g/dL [facility] Platelets 389(H) 145 - 357 x10(3)/[facility]ORAT[facility] RDWSD 50.5(H) 37.0 - 46.0 fL [facility] RDWCV 17.9(H) 11.5 - 14.1 % [facility] MPV 9.4 7.6 - 12.9 fL [facility] nRBC % Auto 0.0 % [facility] nRBC Abs Auto 0.000 0.000 - 0.000 x10(3)/mcL [facility] Blood 06/27/2022 5:58 AM EST 06/27/2022 6:24 AM EST Narrative Resulting Agency Comment Spec In Lab Eddi Vázquez MD HEMATOLOGY ORDERABLE S [facility] [place] [address] * (ABNORMAL) Basic Metabolic Panel (non-fasting) (06/27/2022 5:58 AM EST) Glucose Lvl 97 65 - 199 mg/dL [facility] Comment:Diabetes: >=200 mg/d L plus symptoms BUN 12 8 - 18 mg/dL [facility] Creatinine 0.32(L) 0.70 - 1.20 mg/dL [facility] Sodium 138 135 - 145 mmol/L [facility] Potassium 3.9 3.5 - 5.0 mmol/L [facility] Comment: Please note: ??Patients with WBC >100,000 may have falsely elevated Potassium levels. ??For accurate Potassium quantification in these patients send serum separator tube (gold top) for subsequent determinations. ??Contact the Clinical Chemistry Laboratory if there are any questions. Chloride 102 98 - 107 mmol/L [facility] CO2 25 22 - 31 mmol/L [facility] Anion Gap 11 5 - 15 mmol/L [facility] Calcium 9.2 8.5 - 10.5 mg/dL [facility] Estimated GFR 145 >=60 mL/min/1. 73 m?? [facility] [...] In Lab Eddi Vázquez MD CHEMISTRY ORDERABLES [facility] [place] [address] * (ABNORMAL) Blood Gas Venous ([facility]) (06/26/2022 9:01 PM EST) pH Hitesh 7.45(H) 7.32 - 7.42 [facility] [facility] pCO2 Hitesh 40(L) 41 - 51 mmHg [facility] pO2 Hitesh 70(H) 25 - 40 mmHg [facility] HCO3 Hitesh 27.2 mmol/L [facility] BE Hitesh 3.2 mmol/L [facility] Hgb Blood Gas 11.5(L) 11.7 - 15.5 g/dL [facility] O2HB Hitesh 94.6 % [facility] COHB Hitesh 0.1 % [facility] Comment: Nonsmokers: 0.5-1.5% COHB Smokers: Variable, but usually less than 10% Toxic: 20-30% COHB Lethal: Greater than 60% COHB METHB Hitesh 0.3 <=1.5 % [facility] Na Whole Blood 140 135 - 145 mmol/L [facility] K Whole Blood 4.2 3.5 - 5.0 mmol/L [facility] Comment: Please note: Patients with WBC >100,000 may have falsely elevated Potassium levels. Contact the Clinical Chemistry Laboratory if there are any questions. ICa Whole Blood 1.20 1.15 - 1.33 mmol/L [facility] Comment: Note: ??Total bilirubin higher than 20 mg/dL may lead to falsely low ionized calcium. CL Whole Blood 101 98 - 107 mmol/L [facility] Gluc Whole Bld 98 65 - 199 mg/dL [facility] Comment:Diabetes: >=200 mg/d L plus symptoms Lactate WB 1.3 0.5 - 2.2 mmol/L [facility] BGas Source Venous [facility] Blood Venous Draw / Unknown 06/26/2022 9:01 PM EST 06/26/2022 9:07 PM EST Narrative Resulting Agency Comment Spec In Lab Mayank Kang MD CHEMISTRY ORDERABLES Performing Organization Address City/[facility] Co de Phone Number [facility] [place] [address] * EKG 12 Lead (06/26/2022 8:46 PM EST) Ventricular rate 136 BPM MUSE SYSTEM Atrial Rate 136 BPM MUSE SYSTEM P-R Interval 126 ms MUSE SYSTEM QRS Duration 72 ms MUSE SYSTEM Q-T Interval 298 ms MUSE SYSTEM QTC Calculated (Bezet) 448 ms MUSE SYSTEM Calculated P [place] 35 degrees MUSE SYSTEM Calculated R [place] 7 degrees MUSE SYSTEM Calculated T [place] 52 degrees MUSE SYSTEM INTERPRETATION Sinus tachycardia Abnormal ECG Confirmed by Altagracia Palomo ([id number]) on 06/27/2022 3:21:46 PM MUSE SYSTEM 06/26/2022 8:46 PM EST 06/27/2022 3:21 PM EST Mayank Kang MD ECG ORDERABLES Performing Organization Address City/[facility]/ZIP Co de Phone Number MUSE SYSTEM * Differential, Automated (06/26/2022 5:38 AM EST) Neutrophils % 55.3 % [facility] Neutr Abs (ANC) 2.95 1.70 - 6.10 x10(3)/[facility] Lymphocytes % 34.1 % [facility] Lymphocytes Abs 1.8 0.9 - 3.2 x10(3)/[facility] Monocytes % 8.1 % [facility] Monocyte Abs 0.4 0.3 - 0.9 x10(3)/[facility] Eosinophils % 1.7 % [facility] Eosinophils Abs 0.1 0.0 - 0.4 x10(3)/[facility] Basophils % 0.6 % [facility] [place] [place] Basophils Abs 0.0 0.0 - 0.1 x10(3)/[facility] Immature Gran % 0.20 % [facility] Comment: Immature granulocytes(IG's)percentage and absolute count will include metamyelocytes, myelocytes, and promyelocytes. Blood smears from CBCs yielding IG's will be scanned manually for concordance. If this scan disagrees with the automated IG or if promyelocytes are noted, a manual differential will be performed. Debora Gran Abs 0.01 0.00 - 0.04 x10(3)/[facility] Blood 06/26/2022 5:38 AM EST 06/26/2022 6:21 AM EST Narrative Resulting Agency Comment Spec In Lab Eddi Vázquez MD HEMATOLOGY ORDERABLE S [facility] [place] [address] * (ABNORMAL) Hemogram (06/26/2022 5:38 AM EST) WBC 5.3 4.0 - 9.5 x10(3)/[facility] RBC 4.30 4.00 - 5.21 x10(6)/[facility] Hemoglobin 10.1(L) 11.7 - 15.5 g/dL [facility] Hematocrit 33.5(L) 35.7 - 45.8 % [facility] MCV 77.9(L) 82.6 - 94.4 fL [facility] MCH 23.5(L) 27.1 - 32.0 pg [facility] MCHC 30.1(L) 31.7 - 35.0 g/dL [facility] Platelets 467(H) 145 - 357 x10(3)/[facility] RDWSD 50.8(H) 37.0 - 46.0 fL [facility] RDWCV 18.1(H) 11.5 - 14.1 % [facility] MPV 9.4 7.6 - 12.9 fL [facility] nRBC % Auto 0.0 % [facility] nRBC Abs Auto 0.000 0.000 - 0.000 x10(3)/[facility] Blood 06/26/2022 5:38 AM EST 06/26/2022 6:21 AM EST Narrative Resulting Agency Comment Spec In Lab Eddi Vázquez MD HEMATOLOGY ORDERABLE S Performing Organization Address City/State/[facility] Co de Phone Number [facility] [place] [address] * (ABNORMAL) Basic Metabolic Panel (non-fasting) (06/26/2022 5:38 AM EST) Glucose Lvl 97 65 - 199 mg/dL [facility] Comment:Diabetes: >=200 mg/d L plus symptoms BUN 12 8 - 18 mg/dL [facility] Creatinine 0.28(L) 0.70 - 1.20 mg/dL [facility] Sodium 141 135 - 145 mmol/L [facility] Potassium 4.2 3.5 - 5.0 mmol/L [facility] Comment: Please note: ??Patients with WBC >100,000 may have falsely elevated Potassium levels. ??For accurate Potassium quantification in these patients send serum separator tube (gold top) for subsequent determinations. ??Contact the Clinical Chemistry Laboratory if there are any questions. Chloride 103 98 - 107 mmol/L [facility] CO2 26 22 - 31 mmol/L [facility] Anion Gap 12 5 - 15 mmol/L [facility] Calcium 9.3 8.5 - 10.5 mg/dL [facility] Estimated GFR 150 >=60 mL/min/1. 73 m?? [facility] In Lab Eddi Vázquez MD CHEMISTRY ORDERABLES [facility] [place] [address] * IR All Drainage Procedures (06/25/2022 4:45 [...] 25 cc. Fluoroscopy time: ?? Please see eD IR technologist record for procedural dose/time. Cefazolin/ [...] ??The tract was dilated, and an 8 Bolivian drain was advanced over the wire into [...] aspiration demonstrated shiraz pus, and an 8 Bolivian drain was placed using ultrasound guidance as above. I, the attending Interventional Radiologist performed the entire procedure. ?? Eddi Vázquez MD G IR ORDERABLES * Anaerobic Culture (06/25/2022 3:12 PM EST) Anaerobic Culture No anaerobic organisms isolated [facility] Fluid 06/25/2022 3:12 PM EST 06/25/2022 5:21 PM EST Comment:Inferior spinal flui d collection Narrative Resulting Agency Comment Spec In Lab Anurag Call DO MICROBIOLOGY - GENER AL ORDERABLES Performing Organization Address [facility] Co de Phone Number [facility] [place] [address] * Body Fluid Culture, Aerobic (06/25/2022 3:12 PM EST) Body Fluid Culture No growth [facility] Gram Stain Many Neutrophils seen No microorganisms seen. [facility] Fluid 06/25/2022 3:12 PM EST 06/25/2022 5:21 PM EST Comment:Inferior spinal flui d collection Narrative Resulting Agency Comment Spec In Lab Anurag Call MICROBIOLOGY - GENER AL ORDERABLES Performing Organization Address [facility] Co de Phone Number [facility] [place] [address] * Anaerobic Culture (06/25/2022 3:11 PM EST) Anaerobic Culture No anaerobic organisms isolated [facility] Fluid 06/25/2022 3:11 PM EST 06/25/2022 5:21 PM EST Comment:Superior spinal flui d collection Narrative Resulting Agency Comment Spec In Lab Anurag Call MICROBIOLOGY - GENER AL ORDERABLES Performing Organization Address [facility] Co de Phone Number [facility] [place] [address] * Body Fluid Culture, Aerobic (06/25/2022 3:11 PM EST) Body Fluid Culture No growth [facility] Gram Stain Many Neutrophils seen No microorganisms seen. [facility] Fluid 06/25/2022 3:11 PM EST 06/25/2022 5:21 PM EST Comment:Superior spinal flui d collection Narrative Resulting Agency Comment Spec In Lab Anurag Call DO MICROBIOLOGY - GENER AL ORDERABLES Performing Organization Address City/[facility]/ZIP Co de Phone Number [facility] [place] [address] * Blood culture (06/25/2022 8:55 AM EST) Blood Culture No growth at 5 days. [facility] Blood Pediatric STRUCTURE OF RIGHT HAND / Unknown 06/25/2022 8:55 AM EST 06/25/2022 9:16 AM EST Comment:#2 Narrative Resulting Agency Comment Spec In Lab Eddi Vázquez MD MICROBIOLOGY - BLOOD ORDERABLES Performing Organization Address [facility]/ZIP Co de Phone Number [facility] [place] [address] * Blood culture (06/25/2022 8:55 AM EST) Blood Culture No growth at 5 days. [facility] Blood Pediatric STRUCTURE OF RIGHT UPPER LIMB / Unknown 06/25/2022 8:55 AM EST 06/25/2022 9:16 AM EST Comment:#1 upper Narrative Resulting Agency Comment Spec In Lab Eddi Vázquez MD MICROBIOLOGY - BLOOD ORDERABLES Performing Organization Address City/[facility] Co de Phone Number [facility] [place] [address] * Differential, Automated (06/25/2022 2:20 AM EST) Neutrophils % 60.4 % [facility] Neutr Abs (ANC) 4.34 1.70 - 6.10 x10(3)/[facility] Lymphocytes % 30.3 % [facility] Lymphocytes Abs 2.2 0.9 - 3.2 x10(3)/[facility] Monocytes % 7.2 % [facility] Monocyte Abs 0.5 0.3 - 0.9 x10(3)/[facility] Eosinophils % 1.4 % [facility] Eosinophils Abs 0.1 0.0 - 0.4 x10(3)/[facility] Basophils % 0.6 % [facility] Basophils Abs 0.0 0.0 - 0.1 x10(3)/[facility] Immature Gran % 0.10 % [facility] Comment: Immature granulocytes(IG's)percentage and absolute count will include metamyelocytes, myelocytes, and promyelocytes. Blood smears from CBCs yielding IG's will be scanned manually for concordance. If this scan disagrees with the automated IG or if promyelocytes are noted, a manual differential will be performed. Debora Gran Abs 0.01 0.00 - 0.04 x10(3)/[facility] Blood 06/25/2022 2:20 AM EST 06/25/2022 2:26 AM EST Narrative Resulting Agency Comment Spec In Lab Eddi Vázquez MD HEMATOLOGY ORDERABLE S Performing Organization Address City/State/[facility] Co de Phone Number [facility] [place] [address] * (ABNORMAL) Hemogram (06/25/2022 2:20 AM EST) WBC 7.2 4.0 - 9.5 x10(3)/[facility] RBC 4.06 4.00 - 5.21 x10(6)/[facility] Hemoglobin 9.8(L) 11.7 - 15.5 g/dL [facility] Hematocrit 30.7(L) 35.7 - 45.8 % [facility] MCV 75.6(L) 82.6 - 94.4 fL [facility] MCH 24.1(L) 27.1 - 32.0 pg [facility] MCHC 31.9 31.7 - 35.0 g/dL [facility] Platelets 437(H) 145 - 357 x10(3)/[facility] RDWSD 48.7(H) 37.0 - 46.0 fL [facility] RDWCV 17.9(H) 11.5 - 14.1 % [facility] MPV 8.9 7.6 - 12.9 fL [facility] nRBC % Auto 0.0 % [facility] nRBC Abs Auto 0.000 0.000 - 0.000 x10(3)/[facility] Blood 06/25/2022 2:20 AM EST 06/25/2022 2:26 AM EST Narrative Resulting Agency Comment Spec In Lab Eddi Vázquez MD HEMATOLOGY ORDERABLE S [facility] [place] [address] * (ABNORMAL) Basic Metabolic Panel (non-fasting) (06/25/2022 2:20 AM EST) Glucose Lvl 97 65 - 199 mg/dL [facility] Comment:Diabetes: >=200 mg/d L plus symptoms BUN 9 8 - 18 mg/dL [facility] Creatinine 0.30(L) 0.70 - 1.20 mg/dL [facility] Sodium 140 135 - 145 mmol/L [facility] Potassium 4.1 3.5 - 5.0 mmol/L [facility] Comment: Please note: ??Patients with WBC >100,000 may have falsely elevated Potassium levels. ??For accurate Potassium quantification in these patients send serum separator tube (gold top) for subsequent determinations. ??Contact the Clinical Chemistry Laboratory if there are any questions. Chloride 103 98 - 107 mmol/L [facility] CO2 27 22 - 31 mmol/L [facility] Anion Gap 10 5 - 15 mmol/L [facility] Calcium 9.4 8.5 - 10.5 mg/dL [facility] Estimated GFR 147 >=60 mL/min/1. 73 m?? [facility] [...] In Lab Eddi Vázquez MD CHEMISTRY ORDERABLES [facility] [place] [address] * CT Lumbar Spine w Contrast (06/24/2022 [...] questions please contact the health career development specialist that requested your imaging first. ? Narrative 06/24/2022 6:56 PM EST EXAMINATION: CT [...] have questions please contactthe health career development specialist that requested your imaging first. Annabella Crawford APRN IMG CT ORDERABLES * Differential, Automated (06/24/2022 4:23 PM EST) Neutrophils % 63.2 % [facility] Neutr Abs (ANC) 4.29 1.70 - 6.10 x10(3)/[facility] Lymphocytes % 29.4 % [facility] Lymphocytes Abs 2.0 0.9 - 3.2 x10(3)/[facility] Monocytes % 4.6 % [facility] Monocyte Abs 0.3 0.3 - 0.9 x10(3)/[facility] Eosinophils % 1.8 % [facility] Eosinophils Abs 0.1 0.0 - 0.4 x10(3)/[facility] Basophils % 0.7 % [facility] Basophils Abs 0.0 0.0 - 0.1 x10(3)/[facility] Immature Gran % 0.30 % [facility] Comment: Immature granulocytes(IG's)percentage and absolute count will include metamyelocytes, myelocytes, and promyelocytes. Blood smears from CBCs yielding IG's will be scanned manually for concordance. If this scan disagrees with the automated IG or if promyelocytes are noted, a manual differential will be performed. Debora Gran Abs 0.02 0.00 - 0.04 x10(3)/[facility] Blood 06/24/2022 4:23 PM EST 06/24/2022 4:38 PM EST Narrative Resulting Agency Comment Spec In Lab Kvng SIMMS HEMATOLOGY ORDERABL ES [facility] [place] [address] * (ABNORMAL) Hemogram (06/24/2022 4:23 PM EST) WBC 6.8 4.0 - 9.5 x10(3)/[facility] RBC 4.40 4.00 - 5.21 x10(6)/[facility] Hemoglobin 10.5(L) 11.7 - 15.5 g/dL [facility] Hematocrit 33.6(L) 35.7 - 45.8 % [facility] MCV 76.4(L) 82.6 - 94.4 fL [facility] MCH 23.9(L) 27.1 - 32.0 pg [facility] MCHC 31.3(L) 31.7 - 35.0 g/dL [facility] Platelets 516(H) 145 - 357 x10(3)/[facility] RDWSD 48.5(H) 37.0 - 46.0 [facility] RDWCV 17.8(H) 11.5 - 14.1 % [facility] MPV 9.0 7.6 - 12.9 [facility] nRBC % Auto 0.0 % [facility] nRBC Abs Auto 0.000 0.000 - 0.000 x10(3)/[facility] Blood 06/24/2022 4:23 PM EST 06/24/2022 4:38 PM EST Narrative Resulting Agency Comment Spec In Lab Kvng SIMMS HEMATOLOGY ORDERABL ES [facility] [place] [address] * (ABNORMAL) Sedimentation rate (06/24/2022 4:23 PM EST) Sed Rate >119(H) 2 - 37 mm/hr [facility] [...] MD HEMATOLOGY ORDERABLE S Performing Organization Address [facility] Co de Phone Number [facility] [place] [address] * (ABNORMAL) CRP, acute inflammation (06/24/2022 4:23 PM EST) CRP 96.9(H) <=4.9 mg/L [facility] Blood 06/24/2022 4:23 PM EST 06/24/2022 4:38 PM EST Narrative Resulting Agency Comment Spec In Lab Gaby Robert MD CHEMISTRY ORDERABLES Performing Organization Address [facility] Co de Phone Number [facility] [place] [address] * (ABNORMAL) Basic Metabolic Panel (non-fasting) (06/24/2022 4:23 PM EST) Glucose Lvl 97 65 - 199 mg/dL [facility] Comment:Diabetes: >=200 mg/d L plus symptoms BUN 9 8 - 18 mg/dL [facility] Creatinine 0.26(L) 0.70 - 1.20 mg/dL [facility] Sodium 143 135 - 145 mmol/L [facility] Potassium 3.9 3.5 - 5.0 mmol/L [facility] [...] mmol/L [facility] Anion Gap 12 5 - 15 mmol/L [facility] Calcium 10.0 8.5 - 10.5 mg/dL [facility] Estimated GFR 152 >=60 mL/min/1. 73 m?? [facility] [...] In Lab Gaby Robert MD CHEMISTRY ORDERABLES [facility] [place] [phone] documented in this encounter Visit Diagnoses Diagnosis [...] 10 mg, Oral, ONCE, 1 dose, On Thu06/24/22 at 2103, STAT Given 06/24/2022 9:05 PM [...] Intravenous, ONCE PRN, 1 dose, Starting on Thu06/24/22 at 1820, Until Thu06/24/22 at 1820, Per Protocol, Warning Vesicant/Irritant Medication [...] 1-400 mL, Other, ONCE, 1 dose, On Tu07/01/22 at 1600, For intra-procedural use by proceduralist., [...] 1 dose, On Thu07/04/22 at 0045 New 07/04/2022 12:27 AM EST 500 mL/hr lactated Ringers 500 mL IV bolus at 500 mL/hr, Intravenous, ONCE, 1 dose, On Thu07/04/22 at 0330 New 07/04/2022 3:00 AM EST 500 mL/hr lactated Ringers 500 mL IV bolus at 500 mL/hr, Intravenous, ONCE, 1 dose, On Thu07/04/22 at 0615 07/04/2022 5:35 AM EST 500 mL/hr lactated Ringers 500 mL IV bolus Intravenous, ONCE, 1 dose, On Thu07/05/22 at 0845 07/05/2022 7:59 AM EST lactated Ringers 500 mL IV bolus at 500 mL/hr, Intravenous, ONCE, 1 dose, On Thu07/06/22 at 0730 07/06/2022 6:47 AM EDT 500 mL/hr lactated Ringers 500 mL IV bolus Intravenous, ONCE, 1 dose, On Thu07/06/22 at 1345 07/06/2022 1:11 PM EDT 500 mL/hr lactated Ringers 500 mL IV bolus at 500 mL/hr, Intravenous, ONCE, 1 dose, On Thu07/07/22 at 0730 New 07/07/2022 6:30 AM EDT 500 mL/hr lactated ringers infusion 75 mL/hr, Intravenous, CONTINUOUS, Starting on Thu06/27/22 at 0200, Until Thu06/27/22 at 0859 New 06/27/2022 1:42 AM EST 75 mL/hr 75 mL/hr lactated ringers infusion 50 mL/hr, Intravenous, CONTINUOUS, Starting on Thu07/01/22 at 2300, Until Thu07/02/22 at 1059 New 07/01/2022 10:15 PM EST 50 mL/hr 50 [...] CONTINUOUS, Starting on Thu07/04/22 at 1915, Until Thu07/05/22 at 0514 New Bag 07/05/2022 2:11 AM [...] 2 g, Intravenous, ONCE, 1 dose, On Thu07/01/22 at 2030, Administer over 120 Minutes New [...] Intravenous, EVERY 8 HOURS PRN, Starting on Thu07/03/22 at 2231, Until Thu07/09/22 at 1229, Nausea [...] 1 dose, On Thu07/01/22 at 1215 New Bag 07/01/2022 11:28 AM EST 250 mL/hr sodium chloride 0.9% 500 mL IV bolus at 250 mL/hr, Intravenous, ONCE, 1 dose, On Thu07/06/22 at 1815 New 07/06/2022 5:32 PM EDT 250 mL/hr sodium chloride 0.9% infusion 100 mL/hr, Intravenous, CONTINUOUS, Starting on Thu07/06/22 at 1500, Until Thu07/06/22 at 1812 New 07/06/2022 4:17 PM EDT 100 mL/hr 100 mL/hr sodium chloride 0.9% infusion 150 mL/hr, Intravenous, CONTINUOUS, Starting on Thu07/06/22 at 1815, Until Thu07/07/22 at 0414 New 07/06/2022 10:20 PM EDT 150 mL/hr 150 [...] Vi Bonds RN)0730 (Stopped - Provider: Vi Bodns RN) levoFLOXacin (Levaquin) tablet 750 mg 750 [...] Bonds RN) 0840 (Given - Provider: Jigna Neal, EUNICE) polyethylene glycoL (Miralax) packet 17 g 17 g, Oral, DAILY, First dose (after last modification) on Thu07/07/22 at 0900, Until Discontinued, Routine 1424 (Given - Provider: Vi Bonds RN) 0942 (Given - Provider: Vi Bonds RN) 0841 (Given - Provider: Jigna Neal, EUNICE) senna-docusate (Pericolace) 8.6-50 mg per tablet [...] Oral, 3 TIMES DAILY PRN, Starting on 07/01/22 at 2206, Until Thu07/09/22 at 1229, Cough, or sore throat, DO NOT CRUSH OR OPEN, Routine bisacodyL (Dulcolax) suppository 10 mg 10 mg, Rectal, DAILY PRN, Starting on 06/29/22 at 1733, Until Thu07/09/22 at 1229, Constipation, Routine lidocaine (Xylocaine) 1% (10 mg/mL) injection 3 mg 3 mg (0.3 mL), Subcutaneous, ONCE PRN, 1 dose, Starting on Thu06/24/22 at 2318, Until Thu07/09/22 at 1229, for discomfort with PIV insertion, Routine ondansetron (pf) (Zofran) (2 mg/mL) injection 4 mg 4 mg, Intravenous, EVERY 8 HOURS PRN, Starting on Dianne 07/03/22 at 2231, Until Thu07/09/22 at 1229, Nausea 2025 (Given - Provider: Diandra Luo) 191 (Given - Provider: Vi Bonds RN) prochlorperazine (Compazine) (5 mg/mL) injection 5 mg 5 mg, Intravenous, EVERY 6 HOURS PRN, Starting on Thu07/06/22 at 1354, Until Thu07/09/22 at 1229, Nausea, Vomiting, Routine sodium chloride 0.9 % (flush) (BD PosiFlush Normal Saline 0.9) flush 5-20 mL 5-20 mL, Intravenous, EVERY 1 MIN PRN, Starting on Thu06/24/22 at 2318, Until Thu07/09/22 at 1229, flush, [...] PM EST Parainfluenza Virus 06/28/2022 06/28/2022 07/10/19 23 8:09 PM EDT documented as of this encounter Care Teams 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
--- OUTSIDE RECORDS SUMMARY | 2023-11-16 16:59 | XMS_ITS | Encounter Summary ---
Author Organization [facility] Address [facility] [place] [address] Care Team Providers Care Head Baggage Porter Name Role Phone Lorna Bal APRN Primary Care Provider [phone] Reason for Visit * Reason Comments Cerebral Palsy CP hip dysplasia Encounter Details Date Type Department Care Team (Late st Contact Info) Description 03/18/2019 2:00 PM EST Office Visit [place] [address] Josse Mckee MD [facility] [place] [address] Acquired dysplasia of hip, unspecified laterality Social [...] NAME: Tana Cavazos AGE: 23 y.o.. MR#: [id number] ? DATE OF VISIT: 03/18/2019 ? STAFF: [...] continued pain. She continues to wear a [place] TLSO brace for her residual curve. She [...] would be continued care with an adult retention manager to try to utilize botox/phenol injections to manage her pain. He did recommend [facility] in the [place] area, as a good option for an adult retention manager. She can follow up PRN with Dr. Mckee, and will be transitioning to an adult provider. documented in this encounter Plan of Treatment Upcoming Encounters Date Type Department Care Team (Late st Contact Info) Description 11/19/2023 2:30 PM EDT TH Visit (TeleHealth) [place] [address] Lilli Joy APRN [facility] [place] [address] 12/03/2023 12:30 PM EDT Office Visit Infectious Disease at [place] [phone] Hollie Ambriz MD [facility] [place] [address] 12/03/2023 2:30 PM EDT Appointment Radiology at [place] [phone] Andrade Melvin MD [facility] [place] [address] documented as of this encounter Results * [...] below. ? Electronically signed by: Zander Sherwood [facility] ([phone]), at 03/18/2019 4:22 PM Narrative 03/18/2019 4:22 [...] laterality documented in this encounter Care Teams Head Baggage Porter Relationship Specialty Start Date End Date Lorna Bal APRN [address] [place] [address] PCP - General Family Medicine 05/27/18 documented as of this encounter
--- OUTSIDE RECORDS SUMMARY | 2023-11-16 16:59 | XMS_ITS | Encounter Summary ---
Author Organization [place] [address] Care Team Providers Care Mottle Lay Up Operator Name Role Phone Emelyn Easley MD Primary Care Provider [phone] Reason for Visit * Reason Onset Date Comments Appointment 02/05/2017 Encounter Details Date Type Department Care Team (Late st Contact Info) Description 02/05/2017 Telephone [place] [address] Sarah Shah APRN [facility] [place] [address] Appointment Social History Tobacco Use Types Packs/Day [...] EDT Patient scheduled * Telephone Encounter - Ines Bueno - 02/05/2017 2:28 PM EDT LM # 1 to schedule follow up with VINCENT DELACRUZ on March 06 for XR CP SP BILAT GIRDLE STONE PROCEDURE. documented in this encounter Plan of Treatment Upcoming Encounters Date Type Department Care Team (Late st Contact Info) Description 11/19/2023 2:30 PM EDT TH Visit (TeleHealth) [place] [address] Lilli Joy APRN [facility] [place] [address] 12/03/2023 12:30 PM EDT Office [place] [address] Hollie Ambriz MD [facility] DR [place] [address] 12/03/2023 2:30 PM EDT [place] [address] Andrade Melvin MD [facility] DR [place]ST[place] [address] documented as of this encounter Visit Diagnoses Not on filedocumented in this encounter Care Teams Mottle Lay Up Operator Relationship Specialty Start Date End Date Emelyn Easley MD [address] [place] [address] PCP - General Family Medicine 08/26/16 05/26/18 documented as of this encounter
--- OUTSIDE RECORDS SUMMARY | 2023-11-16 16:59 | XMS_ITS | Encounter Summary ---
Author Organization [facility] Address [facility] [place] [address] Care Team Providers Care Manager Of Compensation Name Role Phone Lorna Bal APRN Primary Care Provider [phone] Reason for Visit * Consultation (Routine) - Closed Specialty Diagnoses / Procedures Referred By Contact Referred To Contact Maxillofacial Surgery Diagnoses wisdom teeth extraction no images Yas [address]ner, [place] [address] Keith Cotton MD [facility] DR ORAL & [place] [address] Referral ID Status Reason Start Date Expiration Date Visits Re quested Visits Authorized [id number] Closed 03/20/2018 03/20/2019 1 1 Encounter Details Date Type Department Care Team (Late st Contact Info) Description 05/27/2018 11:00 AM EST Office Visit [place] [address] Keith Cotton MD [facility] DR ORAL & [place] [address] Impacted teeth Social History Tobacco Use Types [...] who is referred to us by at [facility] for consultation regarding wisdom teeth dental extractions. [...] [Transparent Dressings] Itching and Dermatitis Please use [id number] ROS with attention to cardiac, pulmonary, hepatic, [...] EDT TH Visit (TeleHealth) Infectious Disease at [place] [phone] Lilli Joy [place]N [facility] [place] [address] 12/03/2023 12:30 PM EDT Office Visit Infectious Disease at [place] [phone] Hollie Ambriz MD [facility] [place] [address] 12/03/2023 2:30 PM EDT Appointment Radiology at [place] [phone] Andrade Melvin MD [facility] [place] [address] documented as of this encounter Visit Diagnoses Diagnosis Impacted teeth documented in this encounter Care Teams Manager Of Compensation Relationship Specialty Start Date End Date Lorna Bal APRN [address] [place] [address] PCP - General Family Medicine 05/27/18 documented as of this encounter
--- OUTSIDE RECORDS SUMMARY | 2023-11-16 16:59 | XMS_ITS | Encounter Summary ---
Author Organization [facility] Address [facility] [place] [address] Care Team Providers Care Tile Grinder Name Role Phone Lorna Bal APRN Primary Care Provider [phone] Encounter Details Date Type Department Care Team (Late st Contact Info) Description 07/08/2022 Orders Only Infectious Disease at [facility] [place] [address] Jamaal Estrada MD [facility] [place] [address] Spinal abscess; Bacteremia; E coli infection; Soft tissue abscess; Muscle abscess Social History Tobacco Use Types Packs/Day Years Used Date Smoking Tobacco: Never Smokeless Tobacco: Never Comments:NO SMOKERS IN THE H OME Alcohol Use Standard Drinks/Week Comments No 0 (1 standard drink = 0.6 oz pur e alcohol) [facility] Inpatient Questions Answer Date Recorded Does Anyone [...] Visit (TeleHealth) Infectious Disease at [place] [phone] Lilli Joy APRN [facility] [place] [address] 12/03/2023 12:30 PM EDT Office [place] [address] Hollie Ambriz MD [facility] [place] [address] 12/03/2023 2:30 PM EDT [place] [address] Andrade Melvin MD [facility] [place] [address] documented as of this encounter Visit Diagnoses [...] documented as of this encounter Care Teams Tile Grinder Relationship Specialty Start Date End Date Lorna Bal APRN [address] [place] [address] PCP - General Family Medicine 05/27/18 documented as of this encounter
--- OUTSIDE RECORDS SUMMARY | 2023-11-16 16:59 | XMS_ITS | Encounter Summary ---
Author Organization [facility] Address [facility] [place] [address] Care Team Providers Care Foreign Correspondent Name Role Phone Lorna Bal APRN Primary Care Provider [phone] Reason for Visit * Auth/Cert Specialty Diagnoses [...] Expiration Date Visits Re quested Visits Authorized [id number] 1 1 Encounter Details Date Type Department Care Team (Late st Contact Info) Description 06/14/2018 8:34 AM EST - 06/14/2018 12:20 PM EST Hospital Encounter [place] [address] Keith Wilson MD [facility] DR ORAL & [place] [address] Discharge Disposition: Home Social History Tobacco Use [...] closest emergency room or call the hospital charge operator at [phone] and ask for physician directional bore operator covering for your physician. Questions or problems after 5pm or on a weekend: Call the [facility] charge operator at and ask for the physician directional bore operator covering for your doctor. * Patient Instructions* [...] may be helpful. Most swelling will occur [id number] hours following the procedure. Mouth Rinse: Vigorous [...] can be reached during office hours at [phone]. If you have questions atnight or on weekends, Dr. Wilson can be reached at [phone]. documented in this encounter Medications at Time [...] LEGS performed by BARRERA OLIVER at [facility] OR ? ? PRO I&D, POST SPINE, LUMB/SACR/LUMBOSAC N/A 05/20/2014 @I & D, OPEN, DEEP ABSCESS, LUMBAR, SACRAL, LUMBOSACRAL performed by Freddy Isbell MD at [facility] OR ? ? PRO I&D, POST SPINE, LUMB/SACR/LUMBOSAC N/A 05/26/2014 @I & D, OPEN, DEEP ABSCESS, LUMBAR, SACRAL, LUMBOSACRAL performed by Freddy Isbell MD at [facility] OR ??? PRO OSTEOTOMY FEMUR SHAFT/SUPRACONDY 08/15/2010 ??OSTEOTOMY, FEMUR SHAFT OR SUPRACONDYLAR W/O FIXATION performed by BARRERA OLIVER at [facility] OR ??? PRO RECONSTRUC HIP SOCKET, RESEC FEM HEAD 08/15/2010 ??ACETABULOPLASTY (GIRDLESTONE), RESECTION FEMORAL HEAD, BILATERAL performed by BARRERA OLIVER [facility] OR ??? PRO REMOVAL DEEP IMPLANT 08/15/2010 REMOVAL IMPLANT, DEEP, BRUNO performed by BARRERA OLIVER at [facility] OR ??? PRO REMOVE INFUSN DEVICE/PUMP N/A 05/11/2014 REMOVAL OF SPINE INFUSION PUMP performed by Jamaal Samuel MD at [facility] OR ??? PRO REMOVE SPINAL CANAL CATHETER N/A 05/11/2014 REMOVAL OF INTRATHECAL OR EPIDURAL CATHETER performed by Jamaal Samuel MD at [facility] OR ??? PRO REPR, DURAL/CSF LEAK, NOT REQ LAMINECTOMY N/A 05/20/2014 @REPAIR DURAL\CSF LEAK,NOT REQUIRING LAMINECTOMY performed by Freddy Isbell MD at [facility] OR Allergies Allergen Reactions ??? Fluoxetine Other (See Comments) HIVES, HEART RACES ??? Tegaderm [Transparent Dressings] Itching and Dermatitis Please use [id number] No current facility-administered medications on file prior [...] TOOTH (WRVU 1.09) No flowsheet data found. [place] PDMP QUERY DATE: 02/18/19 Risk Assessment Category: [...] No future appointments. Keith Wilson DMD, MD rehabilitation liaison documented in this encounter Miscellaneous Notes * Op Note - Keith Wilson MD - 06/14/2018 11:06 AM EST [facility] Operative Note Patient Name: Tana Cavazos : [id number] MR#: [id number] Case Date: 06/14/2018 Surgeon: Surgeon(s) and Role: [...] and draped in the standard fashion for oval or circular glass cutter. The oral cavity was suctioned and an [...] tooth #32. Mucoperiosteum was reflected laterally andthe Loyalize drill was used to remove bone overlying [...] EDT TH Visit (TeleHealth) Infectious Disease at [place] [phone] Lilli Joy APRN [facility] [place] [address] 12/03/2023 12:30 PM EDT Office Visit Infectious Disease at [place] [phone] Hollie Ambriz MD [facility] [place] [address] 12/03/2023 2:30 PM EDT Appointment Radiology at [place] [phone] Andrade Melvin MD [facility] DR [place] [address] documented as of this encounter Procedures Procedure [...] PRN, Starting on Thu06/14/18 at 0839, Until 06/14/18 at 1420, flush, Flush pertains to all indwelling lines. Flush per protocol found in the job aid using the link provided on this medication record., Day of Surgery (Day of Procedure), Routine documented in this encounter Care Teams Foreign Correspondent Relationship Specialty Start Date End Date Lorna Bal APRN [address] [place] [address] PCP - General Family Medicine 05/27/18 documented as of this encounter
--- OUTSIDE RECORDS SUMMARY | 2023-11-16 16:59 | XMS_ITS | Encounter Summary ---
[place] [address] Care Team Providers Care Medical Voucher Clerk Name Role Phone Emelyn Easley MD Primary Care Provider [phone] Reason for Referral * Diagnostic Test (Routine) - Closed Specialty Diagnoses / Procedures Referred By Contac t Referred To Contact Radiology Diagnoses Traumatic brain injury, without LOC, sequela Acquired dysplasia of hip, unspecified laterality Spasticity Neuromuscular scoliosis of lumbar region Procedures NM Whole Body Bone Scan Vanda Carter PA [facility] [place] [address] [place] [address] Referral ID Status Reason Start Date Expiration Date V isits Requested Visits Authorized [id number] Closed Specialty Service Requested 11/24/2016 11/24/2017 1 1 Reason for Visit * Diagnostic Test (Routine) - Closed Specialty Diagnoses / Procedures Referred By Contac t Referred To Contact Radiology Diagnoses Traumatic brain injury, without LOC, sequela Acquired dysplasia of hip, unspecified laterality Spasticity Neuromuscular scoliosis of lumbar region Procedures NM Whole Body Bone Scan Vanda Carter [place] [facility] [place] [address] [facility] [place] [address] Referral ID Status Reason Start Date Expiration Date V isits Requested Visits Authorized [id number] Closed Specialty Service Requested 11/24/2016 11/24/2017 1 1 Encounter Details Date Type Department Care Team (Latest Contact Info) Description 12/10/2016 10:57 AM EDT - 12/10/2016 1:59 PM EDT Hospital Encounter [place] [address] Josse Mckee MD [facility] [place] [address] Traumatic brain injury, without LOC, [...] TH Visit (TeleHealth) [place] [address]556[address] Lilli Joy APRN [facility] [place] [address] 12/03/2023 12:30 PM EDT Office [place] [address] Hollie Ambriz MD [facility] INFECTIOUS DISEASE [place], [place] [address] 12/03/2023 2:30 PM EDT Appointment [place] [address] Andrade Melvin MD [facility] [place] [address] documented as of this encounter Procedures Procedure [...] pelvis cannot be evaluated. Josse Mckee MD [facility] [place] ORDERABLES documented in this encounter Visit [...] mCi documented in this encounter Care Teams Medical Voucher Clerk Relationship Specialty Start Date End Date Emelyn Easley MD [address] [place] [address] PCP - General Family Medicine 08/26/16 05/26/18 documented as of this encounter
--- OUTSIDE RECORDS SUMMARY | 2023-11-16 16:59 | XMS_ITS | Encounter Summary ---
Author Organization [facility] Address [facility] [place] [address] Care Team Providers Care Feed Research Aide Name Role Phone Emelyn Easley MD Primary Care Provider Reason for Visit * Reason Comments Follow Up Surgery Bilateral Girdle sto ne procedure Encounter Details Date Type Department Care Team (Late st Contact Info) Description 03/06/2017 11:40 AM EST Office [place] [address] Josse Mckee MD [facility] [place] [address] Acquired dysplasia of hip, unspecified laterality; Traumatic [...] NAME: Tana Cavazos AGE: 21 y.o.. MR#: [id number] ? DATE OF VISIT: 03/06/2017 ? STAFF: [...] at that time, done with physiatry at [facility]. Dr. Mckee gave them his card [...] EDT TH Visit (TeleHealth) Infectious Disease at [place] [phone] Lilli Joy APRN [facility] [place] [address] 12/03/2023 12:30 PM EDT Office Visit Infectious Disease at [address] Hollie Ambriz MD [facility] [place] [address] 12/03/2023 2:30 PM EDT Appointment Radiology at [place] [phone] Andrade Melvin MD [facility] [place] [address] documented as of this encounter Visit Diagnoses Diagnosis Acquired dysplasia of hip, unspecified laterality Traumatic brain injury, without loss of consciousness, sequela documented in this encounter Care Teams Feed Research Aide Relationship Specialty Start Date End Date Emelyn Easley MD [address] [place] [address] PCP - General Family Medicine 08/26/16 05/26/18 documented as of this encounter
--- OUTSIDE RECORDS SUMMARY | 2023-11-16 16:59 | XMS_ITS | Encounter Summary ---
Author Organization [facility] Address [facility] [place] [address] Care Team Providers Care Clay House Worker Name Role Phone Lorna Bal APRN Primary Care Provider [phone] Encounter Details Date Type Department Care Team (Latest Contact Info) Description 03/18/2019 1:45 PM EST - 03/18/2019 11:59 PM EST Hospital Encounter XRay at [address] [place] [address] Josse Mckee MD [facility] [place] [address] Acquired dysplasia of hip, unspecified laterality Discharge [...] EDT TH Visit (TeleHealth) [place] [address] Lilli Joy [place] [address] 12/03/2023 12:30 PM EDT Office Visit Infectious Disease at [place] [phone] Hollie Ambriz MD [facility] DR [place] [address] 12/03/2023 2:30 PM EDT Appointment Radiology at [place] [phone] Andrade Melivn MD [facility] DR DIAGNOSTIC [place] [address] documented as of this encounter Procedures Procedure [...] laterality documented in this encounter Care Teams Clay House Worker Relationship Specialty Start Date End Date Lorna Bal, [place] [address] [place] [address] PCP - General Family Medicine 05/27/18 documented as of this encounter
--- OUTSIDE RECORDS SUMMARY | 2023-11-16 16:59 | XMS_ITS | Encounter Summary ---
Author Organization [facility] [place] [address] Care Team Providers Care Fixed Wing Pilot Name Role Phone Lorna Bal APRN Primary Care Provider [phone] Encounter Details Date Type Department Care Team [...] EDT TH Visit (TeleHealth) Infect[place] [address] Lilli Joy APRN [facility] [place] [address] 12/03/2023 12:30 PM EDT Office Visit [place] [address] Hollie Ambriz MD [facility] [place] [address] 12/03/2023 2:30 PM EDT Appointment [place] [address] Andrade Melvin MD [facility] [place] [address] documented as of this encounter Visit Diagnoses Not on filedocumented in this encounter Care Teams Fixed Wing Pilot Relationship Specialty Start Date End Date Lorna Bal APRN [address] [place] [address] PCP - General Family Medicine 05/27/18 documented as of this encounter
--- OUTSIDE RECORDS SUMMARY | 2023-11-16 16:59 | XMS_ITS | Encounter Summary ---
[place] [address] Care Team Providers Care Warp Knitting Machine Operator Name Role Phone Emelyn Easley MD Primary Care Provider [phone] Reason for Visit * Auth/Cert Specialty Diagnoses / Procedures Referred By Contac t Referred To Contact Diagnoses TBI, W/O LOC, SEQUEIA/ACQUIRED DYSPLASIA OF HIP Procedures PRO ANESTH, CAT/MRI SCAN, RADIATN THERAPY BONE SCAN Referral ID Status Reason Start Date Expiration Date Visits Re quested Visits Authorized [id number] 1 1 Encounter Details Date Type Department Care Team (Late st Contact Info) Description 12/30/2016 3:00 PM EDT - 12/30/2016 4:28 [place] [address] RESOURCE, ANESTHESIA-KRISTIN None BONE SCAN Social History [...] 11:40; without success they called for another semiconductor manufacturing technician. I paged at 12:17; person answering says [...] EDT TH Visit (TeleHealth) [place] [address] Lilli Joy APRN [facility] [place] [address] 12/03/2023 12:30 PM EDT Office Visit [place] [address] Hollie Ambriz MD [facility] [place] [address] 12/03/2023 2:30 PM EDT Appointment [place] [address] Andrade Melvin MD [facility] [place] [address] documented as of this encounter Procedures Procedure Name Priority Date/Time Associated Diagnosis Comments BONE SCAN 12/30/2016 11:00 PM EDT TBI, W/O LOC, SEQUEIA/ACQUIRED DYSPLASIA OF HIP documented in this encounter Visit Diagnoses Not on filedocumented in this encounter Care Teams Warp Knitting Machine Operator Relationship Specialty Start Date End Date Emelyn Easley MD [address] [place] [address] PCP - General Family Medicine 08/26/16 05/26/18 documented as of this encounter
--- OUTSIDE RECORDS SUMMARY | 2023-11-16 16:59 | XMS_ITS | Encounter Summary ---
Author Organization [facility] Address [facility] [place] [address] Care Team Providers Care Land Degradation Analyst Name Role Phone Emelyn Easley MD Primary Care Provider [phone] Encounter Details Date Type Department Care Team (Latest Contact Info) Description 11/24/2016 12:03 PM EDT Hospital Encounter XRay at [address] [place] [address] Josse Mckee MD [facility] [place] [address] Neuromuscular scoliosis of lumbar region Discharge Disposition: [...] EDT TH Visit (TeleHealth) [place] [address] Lilli Joy APRN [facility] [place] [address] 12/03/2023 12:30 PM EDT Office [place] [address] Hollie Ambriz MD [facility] [place] [address] 12/03/2023 2:30 PM EDT [place] [address] Andrade Melvin MD [facility] DR DIAGNOSTIC RADIOLOGY [place], [place] 48[address] documented as of this encounter Procedures Procedure [...] scoliosis documented in this encounter Care Teams Land Degradation Analyst Relationship Specialty Start Date End Date Emelyn Easley MD [address] [place] [address] PCP - General Family Medicine 08/26/16 05/26/18 documented as of this encounter
--- OUTSIDE RECORDS SUMMARY | 2023-11-16 16:59 | XMS_ITS | Encounter Summary ---
Author Organization [facility] [place] [address] Care Team Providers Care House Wrecker Name Role Phone Emelyn Easley MD Primary Care Provider [phone] Reason for Visit * Auth/Cert Specialty Diagnoses / Procedures Referred By Contac t Referred To Contact Diagnoses TBI, W/O LOC, SEQUEIA/ACQUIRED DYSPLASIA OF HIP Procedures PRO ANESTH, CAT/MRI SCAN, RADIATN THERAPY BONE SCAN Referral ID Status Reason Start Date Expiration Date Visits Re quested Visits Authorized [id number] 1 1 Encounter Details Date Type Department Care Team (Latest Contact Info) Description 12/30/2016 10:57 AM EDT - 12/30/2016 4:52 PM EDT Hospital Encounter Same Day Program at [facility] [place] [address] Janna Strickland MD [facility] [place] [address] Discharge Disposition: Home Social History Tobacco Use [...] 11:40; without success they called for another transport technician. I paged at 12:17; person answering [...] TH Visit (TeleHealth) Infectious Disease at [facility] [place] [address] Lilli Joy APRN [facility] [place] [address] 12/03/2023 12:30 PM EDT Office Visit Infectious Disease at [place] [phone] Hollie Ambriz MD [facility] [place] [address] 12/03/2023 2:30 PM EDT Appointment [place] [address] Andrade Melvin MD [facility] [address] [place] [address] documented as of this encounter Procedures Procedure Name Priority Date/Time Associated Diagnosis Comments BONE SCAN 12/30/2016 11:00 PM EDT TBI, W/O LOC, SEQUEIA/ACQUIRED DYSPLASIA OF HIP documented in this encounter Visit Diagnoses Not on filedocumented in this encounter Care Teams House Wrecker Relationship Specialty Start Date End Date Emelyn Easley MD [address] [place] [address] PCP - General Family Medicine 08/26/16 05/26/18 documented as of this encounter
--- OUTSIDE RECORDS SUMMARY | 2023-11-16 16:59 | XMS_ITS | Encounter Summary ---
[place] [address] Care Team Providers Care Flame Cutter Name Role Phone Emelyn Easley MD Primary Care Provider [phone] Reason for Visit * Diagnostic Test (Routine) - Closed Specialty Diagnoses / Procedures Referred By Contac t Referred To Contact Radiology Diagnoses Traumatic brain injury, without LOC, sequela Acquired dysplasia of hip, unspecified laterality Spasticity Neuromuscular scoliosis of lumbar region Procedures NM Whole Body Bone Scan Vanda Carter PA [facility] [place] [address] [place] [address] Referral ID Status Reason Start Date Expiration Date V isits Requested Visits Authorized [id number] Closed Specialty Service Requested 11/24/2016 11/24/2017 1 1 Encounter Details Date Type Department Care Team (Latest Contact Info) Description 12/10/2016 2:00 PM EDT - 12/10/2016 11:59 PM EDT Hospital En[place] [address] Josse Mckee MD [facility] [place] [address] Discharge Disposition: Home Social History [...] EDT TH Visit (TeleHealth) [place] [address] [address]N [facility] [address] [place] [address] 12/03/2023 12:30 PM EDT Office Visit Infectious Disease at [place] [phone] Hollie Ambriz MD [facility] INFECTIOUS [place] [address] 12/03/2023 2:30 PM EDT Appointment Radiology at [address] Andrade Melvin MD [facility] DR DIAGNOSTIC [place] [address] documented as of this encounter Procedures Procedure [...] mg documented in this encounter Care Teams Flame Cutter Relationship Specialty Start Date End Date Emelyn Easley MD [address] [place] [address] PCP - General Family Medicine 08/26/16 05/26/18 documented as of this encounter
--- OUTSIDE RECORDS SUMMARY | 2023-11-16 16:59 | XMS_ITS | Encounter Summary ---
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, SEQUEIA/ACQUIRED DYSPLASIA OF HIP Procedures PRO ANESTH, CAT/MRI SCAN, RADIATN THERAPY BONE SCAN Referral ID Status Reason Start Date Expiration Date Visits Re quested Visits Authorized [id number] 1 1 Encounter Details Date Type Department Care Team (Latest Contact Info) Description 12/30/2016 2:57 PM EDT - 12/30/2016 11:59 PM EDT Hospital Encounter [place] [address] Josse Mckee MD [facility] DR [place] [address] Discharge Disposition: Home Social History Tobacco Use [...] EDT TH Visit (TeleHealth) Infectious Disease at [place] [phone] Lilli Joy [place]N [facility] [place] [address] 12/03/2023 12:30 PM EDT Office [place] [address] Hollie Ambriz MD [facility] [place] [address] 12/03/2023 2:30 PM EDT Appointment Radiology at [place] [phone] Andrade Melvin MD [facility] [place] [address] documented as of this encounter Procedures Procedure [...] on filedocumented in this encounter Care Teams Tooling Inspector Relationship Specialty Start Date End Date Emelyn Easley MD [address] [place] [address] PCP - General Family Medicine 08/26/16 05/26/18 documented as of this encounter
--- OUTSIDE RECORDS SUMMARY | 2023-11-16 16:59 | XMS_ITS | Encounter Summary ---
[place] [address] Care Team Providers Care Assistant Front Office Manager Name Role Phone Lorna Bal APRN Primary Care Provider [phone] Encounter Details Date Type Department Care Team (Late st Contact Info) Description 06/17/2022 Ancillary Procedure [place] [address] Joe Harrison MD [facility] [place] [address] Social History Tobacco Use Types Packs/Day Years [...] TH Visit (TeleHealth) Infectious [place] [address] Lilli Joy APRN [facility] [place] [address] 12/03/2023 12:30 PM EDT Office Visit [place] [address] Hollie Ambriz MD [facility] INFECTIOUS DISEASE [place], [place] [address] 12/03/2023 2:30 PM EDT Appointment [place] [address] Andrade Melvin MD [facility] [place] [address] documented as of this encounter Procedures Procedure Name Priority Date/Time Associated Diagnosis Comments FILM LIBRARY STORAGE ONLY DX SPINE Routine 06/17/2022 12:00 AM EST documented in this encounter Results * Film Library- Storage Only DX Spine (06/17/2022 12:00 AM EST) Narrative [facility] - 06/19/2022 4:36 PM EST This exam is auto-finalizing. It's purpose is for storage only. Joe Harrison MD IMG FILM LIBRARY ORD ERABLES [place], [place] documented in this encounter Visit Diagnoses Not on filedocumented in this encounter Care Teams Assistant Front Office Manager Relationship Specialty Start Date End Date Lorna Bal APRN [address] [place] [address] PCP - General Family Medicine 05/27/18 documented as of this encounter
--- OUTSIDE RECORDS SUMMARY | 2023-11-16 16:59 | XMS_ITS | Encounter Summary ---
Author Organization [facility] Address [facility] [place] [address] Care Team Providers Care Hand Kiss Setter Name Role Phone Lorna Bal APRN Primary Care Provider [phone] Reason for Visit * Auth/Cert Specialty Diagnoses [...] Expiration Date Visits Re quested Visits Authorized [id number] 1 1 Encounter Details Date Type Department Care Team (Late st Contact Info) Description 06/14/2018 9:12 AM EST Anesthesia Event [facility] [place] [address] Ty Amin MD [facility] [place] [address] Andrade Baldwin MD [facility] [place] [address] Anesthesia Record Procedure Summary Procedure Name Responsible [...] cleanup utility RA#[id number]) 05/26/14 0000 by Zakia Tohmas RN 12/23/21 1715 by Philippe Bonner Incision 05/26/14; abdomen; 12/23/21 (LDA cleanup utility RA#[id number]); 1715 (LDA cleanup utility RA#[id number]) 05/26/14 0000 by Zakia Thomas RN 12/23/21 1715 by Philippe Bonner (RETIRED) Peripheral IV Line - Single Lumen 06/14/18; 0917; other (see comments) (right saphenous); [id number] catheter system; 22 gauge; Dr. Amin; 1; no longer indicated, removed per policy/procedure, catheter/device intact; 06/14/18; 1218 06/14/18 0917 by Laxmi Fowler, AUTO CLUB SAFETY PROGRAM COORDINATOR 06/14/18 1218 by Jessica Silva, EUNICE ETT Mask Ventilation: Ea sy (1); ETT Type: Cuffed, Nasal, KRISH; ETT Size: 7 mm; Mac Blade: 3; Notes: Asleep, Pre-O2; Attempts: 1; Laryngoscopy Grade: 1; ETT Placement Verified By: Auscultation, Capnometry, Visual; Secured at Teeth: 21 cm; Inserted by: Dr. Amin; Removal Date: 06/14/18; Removal Time: 1106 06/14/18 0924 by Laxmi Fowler, AUT[employer] CLUB SAFETY PROGRAM COORDINATOR 06/14/18 1106 by Laxmi Fowler, AUTO CLUB SAFETY PROGRAM COORDINATOR Incision 06/14/18; 0937; gum; 12/23/21 (LDA cleanup [...] Amin MD - 06/14/2018 11:[address] [facility] Department of Anesthesiology Post-procedure Note Patient: Tana Cavazos Procedure Summary Date: 06/14/18 Room / Location: [facility] [place] [address] [place] [address] Anesthesia Start: 911 Anesthesia Stop: 1117 Procedures: [...] All Anesthesia Providers: Anesthesiologist: Ty Amin MD [employer] SAFETY PROGRAM COORDINATOR: Laxmi Fowler CRNA Vitals Value Taken Time BP 128/58 06/14/2018 12:00 PM Temp 36.1 ??C (97 ??F) 06/14/2018 11:15 AM Pulse 95 06/14/2018 11:30 AM Resp 20 06/14/2018 12:00 PM SpO2 97 % 06/14/2018 12:00 PM Pain Level 1 06/14/2018 12:00 PM Patient Location: PACU/[facility] Level of Consciousness: Awake and Alert [...] BOTH LEGS performed by BARRERA OLIVER at [facility] OR ? ? PRO I&D, POST SPINE, LUMB/SACR/LUMBOSAC N/A 05/20/2014 @I & D, OPEN, DEEP ABSCESS, LUMBAR, SACRAL, LUMBOSACRAL performed by Freddy Isbell MD at [facility] OR ? ? PRO I&D, POST SPINE, LUMB/SACR/LUMBOSAC N/A 05/26/2014 @I & D, OPEN, DEEP ABSCESS, LUMBAR, SACRAL, LUMBOSACRAL performed by Freddy Isbell MD at [facility] OR ??? PRO OSTEOTOMY FEMUR SHAFT/SUPRACONDY 08/15/2010 ??OSTEOTOMY, FEMUR SHAFT OR SUPRACONDYLAR W/O FIXATION performed by BARRERA OLIVER at [facility] OR ??? PRO RECONSTRUC HIP SOCKET, RESEC FEM HEAD 08/15/2010 ??ACETABULOPLASTY (GIRDLESTONE), RESECTION FEMORAL HEAD, BILATERAL performed by BARRERA OLIVER [facility] OR ??? PRO REMOVAL DEEP IMPLANT 08/15/2010 REMOVAL IMPLANT, DEEP, BRUNO performed by BARRERA OLIVER at [facility] OR ??? PRO REMOVE INFUSN DEVICE/PUMP N/A 05/11/2014 REMOVAL OF SPINE INFUSION PUMP performed by Jamaal Samuel MD at [facility] OR ??? PRO REMOVE SPINAL CANAL CATHETER N/A 05/11/2014 REMOVAL OF INTRATHECAL OR EPIDURAL CATHETER performed by Jamaal Samuel MD at [facility] MAIN OR ??? PRO REPR, DURAL/CSF LEAK, NOT REQ LAMINECTOMY N/A 05/20/2014 @REPAIR DURAL\CSF LEAK,NOT REQUIRING LAMINECTOMY performed by Freddy Isbell MD at [facility] MAIN OR Social History Tobacco Use ??? Smoking status: Never Smoker ??? Smokeless tobacco: Never Used ??? Tobacco comment: NO SMOKERS IN THE HOME Substance Use Topics ??? Alcohol use: No Social History Substance and Sexual Activity Drug Use No Allergies Allergen Reactions ??? Fluoxetine Other (See Comments) HIVES, HEART RACES ??? Tegaderm [Transparent Dressings] Itching and Dermatitis Please use [id number] Medications: MAR and/or home medications have been [...] EDT TH Visit (TeleHealth) [place] [address] Lilli Joy APRN [facility] [place] [address] 12/03/2023 12:30 PM EDT Office [place] [address] Hollie Ambriz MD [facility] [place] [address] 12/03/2023 2:30 PM EDT [place] [address] Andrade Melvin MD [facility] [place] [address] documented as of this encounter Visit Diagnoses [...] EST documented in this encounter Care Teams Hand Kiss Setter Relationship Specialty Start Date End Date Lorna Bal APRN [address] [place] [address] PCP - General Family Medicine 05/27/18 documented as of this encounter
--- OUTSIDE RECORDS SUMMARY | 2023-11-16 16:59 | XMS_ITS | Encounter Summary ---
[place] [address] Care Team Providers Care Industrial Ecology Technician Name Role Phone Emelyn Easley MD Primary Care Provider [phone] Reason for Visit * Reason Onset Date Comments Appointment 12/10/2016 Encounter Details Date Type Department Care Team (Late st Contact Info) Description 12/10/2016 Telephone [place] [address] Josse Mckee MD [address] [place] [address] Appointment Social History Tobacco Use Types Packs/Day [...] Disease at [facility] [place] [address] Lilli Joy, [place] [facility] [place] [address] 12/03/2023 12:30 PM EDT Office [place] [address] Hollie Ambriz MD [facility] DR [place] [address] 12/03/2023 2:30 PM EDT [place] [address] Andrade Melvin MD [facility] DR [place]AGNO[place] [address] documented as of this encounter Visit Diagnoses Diagnosis Acquired dysplasia of hip, unspecified laterality Neuromuscular scoliosis of lumbar region Other kyphoscoliosis and scoliosis Traumatic brain injury, without LOC, sequela documented in this encounter Care Teams Industrial Ecology Technician Relationship Specialty Start Date End Date Emelyn Easley MD [address] [place] [address] PCP - General Family Medicine 08/26/16 05/26/18 documented as of this encounter
--- OUTSIDE RECORDS SUMMARY | 2023-11-16 16:59 | XMS_ITS | Encounter Summary ---
Author Organization [facility] Address [facility] [place] [address] Care Team Providers Care All Source Intelligence Name Role Phone Emelyn Easley MD Primary Care Provider [phone] Reason for Visit * Reason Comments Rash * Consultation (Routine) - Closed Specialty Diagnoses / Procedures Referred By Karlo duarte Referred To Contact Dermatology Diagnoses RASH TO UPPER EXTREMITIES EXTENDS TO RIGHT SIDE. Lorna Bal APRN [address] [place] [address] [facility] Dermatology [address] [place] [address] Referral ID Status Reason Start Date Expiration Date V isits Requested Visits Authorized [id number] Closed Consult, Test & Treat Connection Center 09/15/2017 09/15/2018 1 1 Encounter Details Date Type Department Care Team (Late st Contact Info) Description 11/16/2017 9:00 AM EDT Office Visit Dermatology at [facility] [address] [place] [address] Emili Mcdonald MD [facility] [place] [address] Keratosis pilaris (Primary Dx); Multiple [...] [Transparent Dressings] Itching and Dermatitis Please use [id number] Review of Systems: - General: Feels well. [...] by Emili Mcdonald MD Resident in Dermatology [facility] Patient seen in conjunction with staff extrusion utility worker: Wally Araya MD Section of Dermatology [facility] Level of Resident Supervision: Direct Supervision (The [...] EDT TH Visit (TeleHealth) Infectious Disease at [place] [phone] Lilli Joy APRN [facility] [address] [facility] 12/03/2023 12:30 PM EDT Office [place] [address] Hollie Ambriz MD [facility] [place] [address] 12/03/2023 2:30 PM EDT Appointment Radiology at [address] Andrade Melvin MD [facility] [place]AGNOSTIC [place] [address] documented as of this encounter Visit Diagnoses Diagnosis Keratosis pilaris- Primary Other specified congenital anomaly of skin Multiple benign nevi Benign neoplasm of skin, site unspecified documented in this encounter Care Teams All Source Intelligence Relationship Specialty Start Date End Date Emelyn Easley MD [address] [place] [address] PCP - General Family Medicine 08/26/16 05/26/18 documented as of this encounter
--- OUTSIDE RECORDS SUMMARY | 2023-11-16 16:59 | XMS_ITS | Encounter Summary ---
[place] [address] Care Team Providers Care Processing Talc And Borate Supervisor Name Role Phone Lorna Bal APRN Primary Care Provider [phone] Encounter Details Date Type Department Care Team [...] EDT TH Visit (TeleHealth) Infectious Disease at [facility] [place] [address] [address]N [facility] [place] [address] 12/03/2023 12:30 PM EDT Office Visit Infectious Disease at [place] [phone] Hollie Ambriz MD [facility] INFECTIOUS DISEASE [place], [place] [address] 12/03/2023 2:30 PM EDT [place] [address] Andrade Melvin MD [facility] [place] [address] documented as of this encounter Visit Diagnoses Not on filedocumented in this encounter Additional Health Concerns Infection Onset Date Last Indicated Resolved Time Parainfluenza Virus 06/28/2022 06/28/2022 07/10/19 23 8:09 PM EDT documented as of this encounter Care Teams Processing Talc And Borate Supervisor Relationship Specialty Start Date End Date Lorna Bal APRN [address] [place] [address] PCP - General Family Medicine 05/27/18 documented as of this encounter
--- OUTSIDE RECORDS SUMMARY | 2023-11-16 16:59 | XMS_ITS | Encounter Summary ---
Author Organization [facility] Address [facility] [place] [address] Care Team Providers Care Analytics Specialist Name Role Phone Lorna Bal APRN Primary Care Provider [phone] Encounter Details Date Type Department Care Team (Late st Contact Info) Description 06/30/2022 Orders [place] [address] Sergey Keane MD [facility] [place] [address] Spinal abscess Social History Tobacco Use Types [...] EDT TH Visit (TeleHealth) [place] [address] Lilli Joy APRN [facility] [place] [address] 12/03/2023 12:30 PM EDT Office Visit [place] [address] Hollie Ambriz MD [facility] [place] [address] 12/03/2023 2:30 PM EDT Appointment [place] [address] Andrade Melvin MD [facility] DR [place] [address] documented as of this encounter Visit Diagnoses [...] documented as of this encounter Care Teams Analytics Specialist Relationship Specialty Start Date End Date Lorna Bal APRN [address] [place] [address] PCP - General Family Medicine 05/27/18 documented as of this encounter
--- OUTSIDE RECORDS SUMMARY | 2023-11-16 16:59 | XMS_ITS | Encounter Summary ---
Author Organization [facility] [place] [address] Care Team Providers Care Wrapper Hand Name Role Phone Emelyn Easley MD Primary Care Provider [phone] Reason for Referral * Diagnostic Test (Routine) - Closed Specialty Diagnoses / Procedures Referred By Contac t Referred To Contact Radiology Diagnoses Traumatic brain injury, without LOC, sequela Acquired dysplasia of hip, unspecified laterality Procedures NM Whole Body Bone Scan Vanda Carter, [place] [address] [facility] [place] [address] Referral ID Status Reason Start Date Expiration Date V isits Requested Visits Authorized [id number] Closed Specialty Service Requested 12/16/2016 12/16/2017 2 2 Reason for Visit * Auth/Cert Specialty Diagnoses / Procedures Referred By Contac t Referred To Contact Diagnoses TBI, 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, SEQUEIA/ACQUIRED DYSPLASIA OF HIP Procedures PRO ANESTH, CAT/MRI SCAN, RADIATN THERAPY BONE SCAN Referral ID Status Reason Start Date Expiration Date Visits Re quested Visits Authorized [id number] 1 1 Encounter Details Date Type Department Care Team (Latest Contact Info) Description 12/30/2016 12:00 PM EDT - 12/30/2016 2:56 PM EDT Hospital Encounter [place] [address] Josse Mckee MD [facility] [place] [address] Traumatic brain injury, without LOC, sequela; Acquired [...] EDT TH Visit (TeleHealth) [place] [address] Lilli Joy APRN [facility] [place] [address] 12/03/2023 12:30 PM EDT Office Visit [place] [address] Hollie Ambriz MD [facility] [place] [address] 12/03/2023 2:30 PM EDT Appointment Radiology at [facility] [place] [address] Andrade Melvin MD [facility] [place] [address] documented as of this encounter Procedures Procedure [...] at 12/30/2016 5:18 PM Josse Mckee MD [facility] [place] ORDERABLES documented in this encounter Visit Diagnoses Diagnosis Traumatic brain injury, without LOC, sequela Acquired dysplasia of hip, unspecified laterality documented in this encounter Administered Medications Inactive Administered Medications - up to 3 most recent administrations Medication Order MAR Action Action Date Dose Rate Site technetium (Tc-99m) methylene diphosphonate (MDP) injection 22 mCi 22 mCi, Intravenous, ONCE PRN, 1 dose, Starting on Tu12/30/16 at 1325, Until Tu12/30/16 at 1325, Per Protocol, Routine Given 12/30/2016 1:25 PM EDT 22 mCi documented in this encounter Care Teams Wrapper Hand Relationship Specialty Start Date End Date Emelyn Easley MD [address] [place] [address] PCP - General Family Medicine 08/26/16 05/26/18 documented as of this encounter
--- OUTSIDE RECORDS SUMMARY | 2023-11-16 16:59 | XMS_ITS | Encounter Summary ---
Author Organization [facility] Address [facility] [place] [address] Care Team Providers Care Digital Strategy Director Name Role Phone Emelyn Easley MD Primary Care Provider [phone] Encounter Details Date Type Department Care Team (Late st Contact Info) Description 01/20/2017 Telephone Orthopaedics at [facility] [place] [address] Vanda Carter PA [facility] [place] [address] Social History Tobacco Use Types Packs/Day Years [...] EDT TH Visit (TeleHealth) Infectious Disease at [place] [phone] Lilli Joy APRN [facility] [address] [place] [address] 12/03/2023 12:30 PM EDT Office Visit Infectious Disease at [place] [phone] Hollie Ambriz MD [facility] [place] [address] 12/03/2023 2:30 PM EDT Appointment Radiology at [place] [phone] Andrade Melvin MD [facility] [place] [address] documented as of this encounter Visit Diagnoses Not on filedocumented in this encounter Care Teams Digital Strategy Director Relationship Specialty Start Date End Date Emelyn Easley MD [address] [place] [address] PCP - General Family Medicine 08/26/16 05/26/18 documented as of this encounter
--- OUTSIDE RECORDS SUMMARY | 2023-11-16 16:59 | XMS_ITS | Encounter Summary ---
Author Organization [facility] Address [facility] [place] [address] Care Team Providers Care Wire Coating Operator Metal Name Role Phone Lorna Bal APRN Primary Care Provider [phone] Reason for Visit * Reason Comments Follow-up * Consultation (Routine) - Specialty Diagnoses / Procedures Referred By Karlo duarte Referred To Contact Dermatology Diagnoses Disorder of the skin and subcutaneous tissue, unspecified Lorna Bal APRN [address] [place] [address] [facility] Dermatology [address] [place] [address] Referral ID Status Reason Start Date Expiration Date V isits Requested Visits Authorized [id number] Consult, Test & Treat [facility] PCP Updated and/or Approved 10/10/2019 10/09/2020 12 12 Encounter Details Date Type Department Care Team (Late st Contact Info) Description 10/31/2019 10:40 AM EDT Office Visit Dermatology at [facility] [address] [place] [address] Deanna Norton MD [facility] [address] G[place] [address] Intertrigo Social History Tobacco Use [...] service: 10/31/2019 Tana Cavazos : 1995 Provider: eDanna Norton MD PROBLEM: left side crease SKIN HISTORY: - Okay to leave detailed message with results? With care givers - Skin cancer (including type): no ?? HPI Tana Cavazos is a 24 y.o. female. Established pt here with her palliative care coordinator Nely. She has a creaseon the left [...] [Transparent Dressings] Itching and Dermatitis Please use [id number] CURRENT MEDICATIONS: Current Outpatient Medications Medication Sig [...] documentation. Deanna Norton MD Section of Dermatology [facility] documented in this encounter Plan of Treatment Upcoming Encounters Date Type Department Care Team (Late st Contact Info) Description 11/19/2023 2:30 PM EDT TH Visit (TeleHealth) Infectious Disease at [place] [phone] Lilli Joy [place]N [facility] [place] [address] 12/03/2023 12:30 PM EDT Office Visit Infectious Disease at [place] [phone] Hollie Ambriz MD [facility] [place] [address] 12/03/2023 2:30 PM EDT Appointment Radiology at [place] [phone] Andrade Melvin MD [facility] [place] [address] documented as of this encounter Visit Diagnoses Diagnosis Intertrigo Other specified erythematous condition documented in this encounter Care Teams Wire Coating Operator Metal Relationship Specialty Start Date End Date Lorna Bal APRN [address] [place] [address] PCP - General Family Medicine 05/27/18 documented as of this encounter
--- OUTSIDE RECORDS SUMMARY | 2023-11-16 16:59 | XMS_ITS | Encounter Summary ---
[place] [address] Care Team Providers Care Airborne Mission Systems Superintendent Name Role Phone Emelyn Easley MD Primary Care Provider [phone] Reason for Visit * Reason Onset Date Comments Other 12/19/2016 Encounter Details Date Type Department Care Team (Late st Contact Info) Description 12/19/2016 Telephone [place] [phone] Josse Mckee MD [facility] [place] [address] Other Social History Tobacco Use Types Packs/Day [...] EDT TH Visit (TeleHealth) [place] [address] Lilli Joy APRN [facility] [place] [address] 12/03/2023 12:30 PM EDT Office Visit Infectious Disease at [place] [phone] Hollie Ambriz MD [facility] [place] [address] 12/03/2023 2:30 PM EDT [place] [address] Andrade Melvin MD [facility] [place] [address] documented as of this encounter Visit Diagnoses Not on filedocumented in this encounter Care Teams Airborne Mission Systems Superintendent Relationship Specialty Start Date End Date Emelyn Easley MD [address] [place] [address] PCP - General Family Medicine 08/26/16 05/26/18 documented as of this encounter
--- OUTSIDE RECORDS SUMMARY | 2023-11-16 16:59 | XMS_ITS | Encounter Summary ---
Author Organization [facility] Address [facility] [place] [address] Care Team Providers Care Corporate Administrative Assistant Name Role Phone Lorna Bal APRN Primary Care Provider [phone] Reason for Visit * Auth/Cert Specialty Diagnoses [...] Expiration Date Visits Re quested Visits Authorized [id number] 1 1 Encounter Details Date Type Department Care Team (Late st Contact Info) Description 06/14/2018 9:45 AM EST - 06/14/2018 11:30 AM EST Surgery [place] [address] Keith Wilson MD [facility] DR ORAL & [place] [address] SURGICAL EXTRACTIONS, REMOVAL OF IMPACTED TOOTH, COMPLETELY [...] closest emergency room or call the hospital senior reactor operator at [phone] and ask for physician pension administrator covering for your physician. Questions or problems after 5pm or on a weekend: Call the [facility] senior reactor operator at and ask for the physician pension administrator covering for your doctor. * Patient Instructions* [...] may be helpful. Most swelling will occur -10 hours following the procedure. Mouth Rinse: Vigorous [...] can be reached during office hours at [phone]. If you have questions atnight or on weekends, Dr. Wilson can be reached at [phone]. documented in this encounter Medications at Time [...] BOTH LEGS performed by BARRERA OLIVER at [facility] MAIN OR ? ? PRO I&D, POST SPINE, LUMB/SACR/LUMBOSAC N/A 05/20/2014 @I & D, OPEN, DEEP ABSCESS, LUMBAR, SACRAL, LUMBOSACRAL performed by Freddy Isbell MD at [facility] MAIN OR ? ? PRO I&D, POST SPINE, LUMB/SACR/LUMBOSAC N/A 05/26/2014 @I & D, OPEN, DEEP ABSCESS, LUMBAR, SACRAL, LUMBOSACRAL performed by Freddy Isbell MD at [facility] MAIN OR ??? PRO OSTEOTOMY FEMUR SHAFT/SUPRACONDY 08/15/2010 ??OSTEOTOMY, FEMUR SHAFT OR SUPRACONDYLAR W/O FIXATION performed by BARRERA OLIVER at [facility] OR ??? PRO RECONSTRUC HIP SOCKET, RESEC FEM HEAD 08/15/2010 ??ACETABULOPLASTY (GIRDLESTONE), RESECTION FEMORAL HEAD, BILATERAL performed by BARRERA OLIVER [facility] OR ??? PRO REMOVAL DEEP IMPLANT 08/15/2010 REMOVAL IMPLANT, DEEP, BRUNO performed by BARRERA OLIVER at [facility] OR ??? PRO REMOVE INFUSN DEVICE/PUMP N/A 05/11/2014 REMOVAL OF SPINE INFUSION PUMP performed by Jamaal Samuel MD at [facility] OR ??? PRO REMOVE SPINAL CANAL CATHETER N/A 05/11/2014 REMOVAL OF INTRATHECAL OR EPIDURAL CATHETER performed by Jamaal Samuel MD at [facility] OR ??? PRO REPR, DURAL/CSF LEAK, NOT REQ LAMINECTOMY N/A 05/20/2014 @REPAIR DURAL\CSF LEAK,NOT REQUIRING LAMINECTOMY performed by Freddy Isbell MD at [facility] OR Allergies Allergen Reactions ??? Fluoxetine Other (See Comments) HIVES, HEART RACES ??? Tegaderm [Transparent Dressings] Itching and Dermatitis Please use [id number] No current facility-administered medications on file prior [...] TOOTH (WRVU 1.09) No flowsheet data found. [place] PDMP QUERY DATE: 06/14/18 Risk Assessment Category: [...] No future appointments. Keith Wilson DMD, MD hydroelectric station chief documented in this encounter Miscellaneous Notes * Op Note - Keith Wilson MD - 06/14/2018 11:06 AM EST [facility] [place] Patient Name: Tana Cavazos : [id number] MR#: [id number] Case Date: 06/14/2018 Surgeon: Surgeon(s) and Role: [...] and draped in the standard fashion for pastoral assistant. The oral cavity was suctioned and [...] tooth #32. Mucoperiosteum was reflected laterally andthe [employer] drill was used to remove bone overlying [...] EDT TH Visit (TeleHealth) [place] [address] Lilli Joy APRN [facility] [place] [address] 12/03/2023 12:30 PM EDT Office [place] [address] Hollie Ambriz MD [facility] [place] [address] 12/03/2023 2:30 PM EDT Appointment Radiology at [place] [phone] Andrade Melvin MD [facility] [place] [address] documented as of this encounter Procedures Procedure [...] Routine documented in this encounter Care Teams Corporate Administrative Assistant Relationship Specialty Start Date End Date Lorna Bal APRN [address] [place] [address] PCP - General Family Medicine 05/27/18 documented as of this encounter
--- OUTSIDE RECORDS SUMMARY | 2023-11-16 16:59 | XMS_ITS | Encounter Summary ---
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, SEQUEIA/ACQUIRED DYSPLASIA OF HIP Procedures PRO ANESTH, CAT/MRI SCAN, RADIATN THERAPY BONE SCAN Referral ID Status Reason Start Date Expiration Date Visits Re quested Visits Authorized [id number] 1 1 Encounter Details Date Type Department Care Team (Late st Contact Info) Description 12/30/2016 3:23 PM EDT [place] [address] Gaby Cantu MD [facility] [place] [address] Sidney Lawson MD [facility] [place] [address] Anesthesia Record Procedure Summary Procedure Name Responsible [...] Andrade Oh RN 12/23/21 1715 by Philippe Bonnre Incision 05/26/14; abdomen; other (see comments) (previous [...] Lawson MD - 12/30/2016 4:27 PM EDT [facility] Department of Anesthesiology Post-procedure Note Patient: Tana Cavazos Procedure Summary Date Anesthesia Start Anesthesia Stop Room / Location 12/30/16 1523 1608 [facility] ADULT RADIOLOGY / [facility] Procedure Diagnosis Surgeon Responsible Provider BONE SCAN (N/A ) (TBI, W/O LOC, SEQUEIA/ACQUIRED DYSPLASIA OF HIP) RESOURCE, ANESTHESIA-Gaby Hallman MD All Anesthesia Providers: Anesthesiologist: Gaby Cantu MD Solid Waste Collector: Sidney Lawson MD Last (1hr) Vitals: BP (!) 80/50 (12/30/16 1608) Temp 36.2 ??C (97.2 ??F) (12/30/16 1608) Pulse 93 (12/30/16 1608) Resp 16 (12/30/16 1608) SpO2 97 % (12/30/16 1608) Patient Location: PACU/[facility] Level of Consciousness: Awake and Alert [...] BOTH LEGS performed by BARRERA OLIVER at [facility] OR ? ? PRO I&D, POST SPINE, LUMB/SACR/LUMBOSAC N/A 05/20/2014 @I & D, OPEN, DEEP ABSCESS, LUMBAR, SACRAL, LUMBOSACRAL performed by Freddy Isbell MD at [facility] OR ? ? PRO I&D, POST SPINE, LUMB/SACR/LUMBOSAC N/A 05/26/2014 @I & D, OPEN, DEEP ABSCESS, LUMBAR, SACRAL, LUMBOSACRAL performed by Freddy Isbell MD at [facility] OR ??? PRO OSTEOTOMY FEMUR SHAFT/SUPRACONDY 08/15/2010 ??OSTEOTOMY, FEMUR SHAFT OR SUPRACONDYLAR W/O FIXATION performed by BARRERA OLIVER at [facility] OR ??? PRO RECONSTRUC HIP SOCKET, RESEC FEM HEAD 08/15/2010 ??ACETABULOPLASTY (GIRDLESTONE), RESECTION FEMORAL HEAD, BILATERAL performed by BARRERA OLIVER [facility] OR ??? PRO REMOVAL DEEP IMPLANT 08/15/2010 REMOVAL IMPLANT, DEEP, BRUNO performed by BARRERA OLIVER at [facility] OR ??? PRO REMOVE INFUSN DEVICE/PUMP N/A 05/11/2014 REMOVAL OF SPINE INFUSION PUMP performed by Jamaal Samuel MD at [facility] OR ??? PRO REMOVE SPINAL CANAL CATHETER N/A 05/11/2014 REMOVAL OF INTRATHECAL OR EPIDURAL CATHETER performed by Jamaal Samuel MD at [facility] MAIN OR ??? PRO REPR, DURAL/CSF LEAK, NOT REQ LAMINECTOMY N/A 05/20/2014 @REPAIR DURAL\CSF LEAK,NOT REQUIRING LAMINECTOMY performed by Freddy Isbell MD at [facility] MAIN OR Social History Substance Use Topics ??? Smoking status: Never Smoker ??? Smokeless tobacco: Never Used Comment: NO SMOKERS IN THE HOME ??? Alcohol use No History Drug Use No Allergies Allergen Reactions ??? Fluoxetine Other (See Comments) HIVES, HEART RACES ??? Tegaderm [Transparent Dressings] Itching and Dermatitis Please use [id number] Medications: MAR and/or home medications have been [...] EDT TH Visit (TeleHealth) [place] [address] Lilli Joy [place]N [facility] [place] [address] 12/03/2023 12:30 PM EDT Office [place] [phone] Hollie Ambriz MD [facility] [place] [address] 12/03/2023 2:30 PM EDT Appointment Radiology at [facility] [place] [place] [address] Andrade Melvin MD [facility] [place] [address] documented as of this encounter Visit Diagnoses [...] mL/hr documented in this encounter Care Teams Medical Doctor Relationship Specialty Start Date End Date Emelyn Easley MD [address] [place] [address] PCP - General Family Medicine 08/26/16 05/26/18 documented as of this encounter
--- OUTSIDE RECORDS SUMMARY | 2023-11-16 16:59 | XMS_ITS | Encounter Summary ---
[place] [address] Care Team Providers Care Mechanical Operator Name Role Phone Lorna Bal APRN Primary Care Provider [phone] Encounter Details Date Type Department Care Team (Late st Contact Info) Description 06/19/2022 4:45 PM EST Ancillary Procedure [place] [phone] Joe Harrison MD [facility] [place] [address] Social History Tobacco Use Types Packs/Day Years [...] EDT TH Visit (TeleHealth) [place] [address] Lilli Joy [place] [facility] [place] [address] 12/03/2023 12:30 PM EDT Office [place] [address] Hollie Ambriz MD [facility] INFECTIOUS DISEASE [place], [place] [address] 12/03/2023 2:30 PM EDT [place] [address] Andrade Melvin MD [facility] [place] [address] documented as of this encounter Procedures Procedure Name Priority Date/Time Associated Diagnosis Comments FILM LIBRARY STORAGE ONLY ULTRASOUND STUDY Routine 06/19/2022 4:40 PM EST documented in this encounter Results * Film Library- Storage Only Ultrasound Study (06/19/2022 4:40 PM EST) Narrative [facility] - 06/19/2022 4:40 PM EST This exam is auto-finalizing. It's purpose is for storage only. Joe Harrison MD IMG FILM LIBRARY ORD ERABLES [place], [place] documented in this encounter Visit Diagnoses Not on filedocumented in this encounter Care Teams Mechanical Operator Relationship Specialty Start Date End Date Lorna Bal APRN [address] [place] [address] PCP - General Family Medicine 05/27/18 documented as of this encounter
--- OUTSIDE RECORDS SUMMARY | 2023-11-16 16:59 | XMS_ITS | Encounter Summary ---
Author Organization [facility] Address [facility] [place] [address] Care Team Providers Care Oracle Fusion Developer Name Role Phone Emelyn Easley MD Primary Care Provider [phone] Encounter Details Date Type Department Care Team (Latest Contact Info) Description 11/24/2016 12:04 PM EDT - 11/24/2016 11:59 PM EDT Hospital Encounter XRay at [address] [place] [address] Josse Mckee MD [facility] [place] [address] Acquired dysplasia of hip, unspecified laterality Discharge [...] Visit (TeleHealth) [place] [phone] Lilli Joy APRN [facility] [place] [address] 12/03/2023 12:30 PM EDT Office [place] [address] Hollie Ambriz MD [facility] [place] [address] 12/03/2023 2:30 PM EDT [place]oint[place] [address] Andrade Melvin MD [facility] DR [place]AG[place] [address] documented as of this encounter Procedures Procedure [...] laterality documented in this encounter Care Teams Oracle Fusion Developer Relationship Specialty Start Date End Date Emelyn Easley MD [address] [place] [address] PCP - General Family Medicine 08/26/16 05/26/18 documented as of this encounter
--- OUTSIDE RECORDS SUMMARY | 2023-11-16 17:00 | XMS_ITS | Encounter Summary ---
Author Organization [facility] Address [facility] [place] [address] Care Team Providers Care Fuel Testing Technician Name Role Phone Naina Lindsey MD Primary Care Provider [phone] Encounter Details Date Type Department Care Team (Latest Contact Info) Description 07/31/2015 11:19 AM EDT - 07/31/2015 11:59 PM EDT Hospital Encounter XRay at [address] [place] [address] Mesha Cabral MD [facility] [place] [address] Neuromuscular scoliosis of lumbar region; Traumatic brain [...] EDT TH Visit (TeleHealth) Infectious Disease at [place] [phone] Lilli Joy APRN [facility] [place] [address] 12/03/2023 12:30 PM EDT Office Visit Infectious Disease at [place] [phone] Hollie Ambriz MD [facility] [place] [address] 12/03/2023 2:30 PM EDT Appointment Radiology at [place] [phone] Andrade Melvin MD [facility] [place] [address] (work) documented as of this encounter Procedures [...] Progression of remodeling and sclerosis about the chickaloon acetabulum and proximal right femoral fragment status [...] Progression of irregularity and remodeling about the [place] acetabulum. The femur remains gracile in nature. [...] Progression of irregularity and remodeling about the [place] acetabulum. The femurremains gracile in nature. Absent femoral head. IMPRESSION IMPRESSION: Progression of remodeling and sclerosis about the [place] acetabulum andproximal right femoral fragment status post [...] encounter documented in this encounter Care Teams Fuel Testing Technician Relationship Specialty Start Date End Date Naina Lindsey MD [address] [place] [address] PCP - General 03/19/10 08/25/16 documented as of this encounter
--- OUTSIDE RECORDS SUMMARY | 2023-11-16 17:00 | XMS_ITS | Encounter Summary ---
Author Organization [facility] [place] [address] Care Team Providers Care Timber Hand Name Role Phone Naina Lindsey MD Primary Care Provider [phone] Encounter Details Date Type Department Care Team (Late st Contact Info) Description 06/19/2014 External [place] [address] Donnell Dotson MD [facility] [place] [address] Social History Tobacco Use Types Packs/Day Years [...] EDT TH Visit (TeleHealth) [place] [address] Lilli Joy APRN [facility] [place] [address] 12/03/2023 12:30 PM EDT Office Visit Infectious Disease at [place] [phone] Hollie Ambriz MD [facility] [place] [address] 12/03/2023 2:30 PM EDT Appointment [place] [phone] Andrade Melvin MD [facility] [place] [address] documented as of this encounter Procedures Procedure Name Priority Date/Time Associated Diagnosis Comments IMPLANTABLE DEVICES SCAN Routine 05/03/2014 3:51 PM EST documented in this encounter Visit Diagnoses Not on filedocumented in this encounter Care Teams Timber Hand Relationship Specialty Start Date End Date Naina Lindsey MD [address] [place] [address] [place] [address] PCP - General 03/19/10 08/25/16 documented as of this encounter
--- OUTSIDE RECORDS SUMMARY | 2023-11-16 17:00 | XMS_ITS | Encounter Summary ---
Author Organization [facility] Address [facility] [place] [address] Care Team Providers Care Security Administrator Name Role Phone Naina Lindsey MD Primary Care Provider [phone] Encounter Details Date Type Department Care Team (Latest Contact Info) Description 07/31/2015 11:18 AM EDT Hospital Encounter XRay at [address] [place] [address] Mesha Cabral MD [facility] [place] [address] Neuromuscular scoliosis of lumbar region; Traumatic brain [...] Visit (TeleHealth) Infectious Disease at [place] [phone] Lilli Joy APRN [facility] [place] [address] 12/03/2023 12:30 PM EDT Office [place] [address] Hollie Ambriz MD [facility] [place] [address] 12/03/2023 2:30 PM EDT Appointment Radiology at [place] [phone] Andrade Melvin MD [facility] [place] [address] documented as of this encounter Procedures Procedure [...] sequela documented in this encounter Care Teams Security Administrator Relationship Specialty Start Date End Date Naina Lindsey MD [address] [place] [address] PCP - General 03/19/10 08/25/16 documented as of this encounter
--- OUTSIDE RECORDS SUMMARY | 2023-11-16 17:00 | XMS_ITS | Encounter Summary ---
Author Organization [facility] Address [facility] [place] [address] Care Team Providers Care Change Management Lead Name Role Phone Naina Lindsey MD Primary Care Provider [phone] Encounter Details Date Type Department Care Team (Latest Contact Info) Description 11/09/2014 11:01 AM EDT - 11/09/2014 11:59 PM EDT Hospital Encounter XRay at [address] [place] [address] Acquired dysplasia of hip, unspecified laterality; Traumatic [...] EDT TH Visit (TeleHealth) Infectious Disease at [place] [phone] Lilli Joy APRN [facility] [place] [address] 12/03/2023 12:30 PM EDT Office [place] [phone] Hollie Ambriz MD [facility] [place] [address] 12/03/2023 2:30 PM EDT [place] [phone] Andrade Melvin MD [facility] [place] [address] documented as of this encounter Procedures Procedure [...] limb documented in this encounter Care Teams Change Management Lead Relationship Specialty Start Date End Date Naina Lindsey MD [address] [place] [address] PCP - General 03/19/10 08/25/16 documented as of this encounter
--- OUTSIDE RECORDS SUMMARY | 2023-11-16 17:00 | XMS_ITS | Encounter Summary ---
Author Organization Formerly [facility] [place] [address] Care Team Providers Care Aircraft Structural Repairer Name Role Phone Emelyn Easley MD Primary Care Provider [phone] Encounter Details Date Type Department Care Team (Late st Contact Info) Description 11/17/2016 Orders [place] [address] Josse Mckee MD [facility] DR [place] [address] Neuromuscular scoliosis of lumbar region; Acquired dysplasia [...] EDT TH Visit (TeleHealth) [place] [address] Lilli Joy APRN [facility] [place] [address] 12/03/2023 12:30 PM EDT Office [place] [address] Hollie Ambriz MD [facility] [place] [address] 12/03/2023 2:30 PM EDT [place] [address] Andrade Melvin MD [facility] [place]NOST[place] [address] documented as of this encounter Results * [...] laterality documented in this encounter Care Teams Aircraft Structural Repairer Relationship Specialty Start Date End Date Emelyn Easley MD [address] [place] [address] PCP - General Family Medicine 08/26/16 05/26/18 documented as of this encounter
--- OUTSIDE RECORDS SUMMARY | 2023-11-16 17:00 | XMS_ITS | Encounter Summary ---
Author Organization [facility] Address [facility] [place] [address] Care Team Providers Care Produce Department Manager Name Role Phone Naina Lindsey MD Primary Care Provider [phone] Reason for Referral * Consultation (Routine) - Closed Specialty Diagnoses / Procedures Referred By Contac t Referred To Contact Orthotics Diagnoses Traumatic brain injury, sequela Spasticity Scoliosis Mesha Cabral MD [facility] [place] [address] Referral ID Status Reason Start Date Expiration Date V isits Requested Visits Authorized [id number] Closed Consult, Test & Treat 11/09/2014 05/08/2015 3 3 Reason for Visit * Reason Comments Follow-up [facility] Encounter Details Date Type Department Care Team (Late st Contact Info) Description 11/09/2014 10:00 AM EDT Office [place] [address] Mesha Cabral MD [facility] [place] [address] Acquired dysplasia of hip, unspecified laterality; Traumatic [...] when her orthopedic care was received at [facility], I do not have those notes available [...] alignment where she had previously used a Aquilla type TLSO scoliosis brace, it does not [...] skin currently. Upper extremity exam reveals bilateral [id number] contractures of the shoulders, elbows, and wrists, [...] would have to be a referral to [facility] as I am no longer performing spine [...] EDT TH Visit (TeleHealth) [place] [address] [address] [facility] [place] [address] 12/03/2023 12:30 PM EDT Office [place] [address] Hollie Ambriz MD [facility] [place] [address] 12/03/2023 2:30 PM EDT Appointment Radiology at [facility] [place] [address] Andrade Melvin MD [facility] DR [place] [address] Scheduled Referrals Name Type Priority Associated Diagnoses [...] limb documented in this encounter Care Teams Produce Department Manager Relationship Specialty Start Date End Date Naina Lindsey MD [address] [place] [address] PCP - General 03/19/10 08/25/16 documented as of this encounter
--- OUTSIDE RECORDS SUMMARY | 2023-11-16 17:00 | XMS_ITS | Encounter Summary ---
[place] [address] Care Team Providers Care Extension Worker Name Role Phone Naina Lindsey MD Primary Care Provider [phone] Encounter Details Date Type Department Care Team (Late st Contact Info) Description 01/04/2015 Telephone [place] [phone] Camille Griffin RN Social History Tobacco Use [...] equipment services. They do not have a [place] provider licence so they will not be able to help with the wheelchair. Spoke with mom and she does not want to go through [employer] again. Will discuss with the team to see if there are other options in [place] for the wheelchair. documented in this encounter Plan of Treatment Upcoming Encounters Date Type Department Care Team (Late st Contact Info) Description 11/19/2023 2:30 PM EDT TH Visit (TeleHealth) Infectious Disease at [address] Lilli Joy APRN [facility] [place] [address] 12/03/2023 12:30 PM EDT Office Visit Infectious Disease at [address] Hollie Ambriz MD [facility] [place] [address] 12/03/2023 2:30 PM EDT Appointment Radiology at [address] Andrade Melvin MD [facility] [place] [address] documented as of this encounter Visit Diagnoses Not on filedocumented in this encounter Care Teams Extension Worker Relationship Specialty Start Date End Date Naina Lindsey MD [address] [place] [address] [place] [address] PCP - General 03/19/10 08/25/16 documented as of this encounter
--- OUTSIDE RECORDS SUMMARY | 2023-11-16 17:00 | XMS_ITS | Encounter Summary ---
Author Organization [facility] Address [facility] [place] [address] Care Team Providers Care Brass Wind Instrument Maker Name Role Phone Naina Lindsey MD Primary Care Provider [phone] Reason for Referral * Consultation (Routine) - Specialty Diagnoses / Procedures Referred By Contmonica duarte Referred To Contact Orthotics Diagnoses Neuromuscular scoliosis of lumbar region Joe Porter MD [facility] [place] [address] Referral ID Status Reason Start Date Expiration Date V isits Requested Visits Authorized [id number] Consult, Test & Treat 06/19/2016 12/16/2016 1 1 Encounter Details Date Type Department Care Team (Late st Contact Info) Description 06/19/2016 Orders [place] [address] Joe Porter MD [facility] [place] [address] Neuromuscular scoliosis of lumbar region Social History [...] requesting a new RX be sent to [facility]. Discussed with Dr. Porter, new Rx for soft TLSO brace faxed to [facility] in [facility]. documented in this encounter Plan of Treatment Upcoming Encounters Date Type Department Care Team (Late st Contact Info) Description 11/19/2023 2:30 PM EDT TH Visit (TeleHealth) [place] [address] Lilli Joy APRN [facility] [place] [address] 12/03/2023 12:30 PM EDT Office Visit Infectious Disease at [place] [phone] Hollie Ambriz MD [facility] [place] [address] 12/03/2023 2:30 PM EDT Appointment Radiology at [address] Andrade Melvin MD [facility] [place] [address] Scheduled Referrals Name Type Priority Associated Diagnoses Orde r Schedule Referral to Othotist Outpatient Referral Routine Neuromuscular scoliosis of lumbar region Ordered: 06/19/2016 documented as of this encounter Visit Diagnoses Diagnosis Neuromuscular scoliosis of lumbar region Other kyphoscoliosis and scoliosis documented in this encounter Care Teams Brass Wind Instrument Maker Relationship Specialty Start Date End Date Naina Lindsey MD [address] [place] [address] PCP - General 03/19/10 08/25/16 documented as of this encounter
--- OUTSIDE RECORDS SUMMARY | 2023-11-16 17:00 | XMS_ITS | Encounter Summary ---
Author Organization [facility] Address [facility] [place] [address] Care Team Providers Care Dispensary Clerk Name Role Phone Naina Lindsey MD Primary Care Provider [phone] Encounter Details Date Type Department Care Team (Late st Contact Info) Description 11/09/2014 9:31 AM EDT - 11/09/2014 11:00 AM EDT Hospital Encounter XRay at [address] [place] [address] Scoliosis Social History Tobacco Use Types Packs/Day [...] EDT TH Visit (TeleHealth) Infectious Disease at [place] [phone] Lilli Joy APRN [facility] [place] [address] 12/03/2023 12:30 PM EDT Office Visit Infectious Disease at [place] [phone] Hollie Ambriz MD [facility] [place] [address] 12/03/2023 2:30 PM EDT Appointment Radiology at [place] [phone] Andrade Melvin MD [facility] [place] [address] documented as of this encounter Procedures Procedure [...] idiopathic documented in this encounter Care Teams Dispensary Clerk Relationship Specialty Start Date End Date Naina Lindsey MD [address] [place] [address] PCP - General 03/19/10 08/25/16 documented as of this encounter
--- OUTSIDE RECORDS SUMMARY | 2023-11-16 17:00 | XMS_ITS | Encounter Summary ---
Author Organization [facility] Address [facility] [place] [address] Care Team Providers Care Television Audio Engineer Name Role Phone Naina Lindsey MD Primary Care Provider Encounter Details Date Type Department Care Team (Late st Contact Info) Description 11/09/2014 Orders [place] [address] Mesha Cabral MD [facility] [place] [address] Scoliosis Social History Tobacco Use Types Packs/Day [...] EDT TH Visit (TeleHealth) [place] [address] Lilli Joy [place]N [facility] [place] [address] 12/03/2023 12:30 PM EDT Office [place] [address] Hollie Ambriz MD [facility] [place] [address] 12/03/2023 2:30 PM EDT [place] [address] Andrade Melvin MD [facility] [place] [address] documented as of this encounter [...] idiopathic documented in this encounter Care Teams Television Audio Engineer Relationship Specialty Start Date End Date Naina Lindsey MD [address] [place] [address] PCP - General 03/19/10 08/25/16 documented as of this encounter
--- OUTSIDE RECORDS SUMMARY | 2023-11-16 17:00 | XMS_ITS | Encounter Summary ---
Author Organization [facility] Address [facility] [place] [address] Care Team Providers Care Shipyard Helper Name Role Phone Naina Lindsey MD Primary Care Provider [phone] Reason for Referral * Consultation (Routine) - Closed Specialty Diagnoses / Procedures Referred By Contac t Referred To Contact Neurology Diagnoses Traumatic brain injury, without loss of consciousness, sequela Spasticity Contracture of elbow, left Mesha Cabral MD [facility] [place] [address] Myah Abdi, [facility] [place] [address] Referral ID Status Reason Start Date Expiration Date V isits Requested Visits Authorized [id number] Closed Consult, Test & Treat 07/31/2015 07/30/2016 1 1 * Consultation (Routine) - Closed Specialty Diagnoses / Procedures Referred By Contac t Referred To Contact Diagnoses Traumatic brain injury, without loss of consciousness, sequela Spasticity Contracture of elbow, left Mesha Cabral MD [facility] [place] [address] Unknown None Referral ID Status Reason Start Date Expiration Date V isits Requested Visits Authorized [id number] Closed Consult, Test & Treat 07/31/2015 01/27/2016 1 1 Reason for Visit * Reason Comments Right Leg Pain Delayed Development Childhood Encounter Details Date Type Department Care Team (Late st Contact Info) Description 07/31/2015 11:00 AM EDT Office [place] [address] Mesha Cabral MD [facility] [place] [address] Neuromuscular scoliosis of lumbar region; Traumatic brain [...] a followup for this established patient of [facility]. She is 20 years old and has an underlying diagnosis of spastic quadriplegic cerebral palsy. She is accompanied by her mother and radiologic technologist chief. Recently it has been noted that she [...] that I will be leaving [facility] at the end of September of this [...] needs. Provider: Mesha Cabral MD [place] [address] documented in this encounter Plan of Treatment Upcoming Encounters Date Type Department Care Team (Late st Contact Info) Description 11/19/2023 2:30 PM EDT TH Visit (TeleHealth) [place] [address] Lilli Joy APRN [facility] [place] [address] 12/03/2023 12:30 PM EDT Office Visit Infectious Disease at [place] [phone] Hollie Ambriz MD [facility] [place] [address] 12/03/2023 2:30 PM EDT Appointment Radiology at [address] Andrade Melvin MD [facility] [place] [address] Scheduled Referrals Name Type Priority Associated Diagnoses [...] Progression of remodeling and sclerosis about the habematolel acetabulum and proximal right femoral fragment status [...] Progression of irregularity and remodeling about the habematolel acetabulum. The femur remains gracile in nature. [...] Progression of irregularity and remodeling about the habematolel acetabulum. The femurremains gracile in nature. Absent femoral head. IMPRESSION IMPRESSION: Progression of remodeling and sclerosis about the habematolel acetabulum andproximal right femoral fragment status post [...] encounter documented in this encounter Care Teams Shipyard Helper Relationship Specialty Start Date End Date Naina Lindsey MD [address] [place] [address] PCP - General 03/19/10 08/25/16 documented as of this encounter
--- OUTSIDE RECORDS SUMMARY | 2023-11-16 17:00 | XMS_ITS | Encounter Summary ---
Author Organization [facility] Benjamin [place] [address] Care Team Providers Care Legal Mediator Name Role Phone Naina Lindsey MD Primary Care Provider [phone] Reason for Visit * Reason Comments Follow-up HCK / REMOVE DEE Hayes Encounter Details Date Type Department Care Team (Latest Contact Info) Description 06/08/2014 4:30 PM EST Office Visit [place] [address] Alek Sinha, CUSTOMER SERVICE COORDINATOR [facility] [place] [address] Spasticity; Postoperative wound infection, subsequent encounter Discharge [...] this encounter Progress Notes * Alek Sinha, CUSTOMER SERVICE COORDINATOR - 06/23/2014 3:02 PM EST Florin Cavazos was seen today in the pediatric neurosurgery clinic for a post-op follow up visit. Tana is a 18 year old girl with a history of increased tone which was managed with intrathecal baclofen. She underwent placement of an intrathecal baclofen pump in 2007 at the [facility]. Mother feels that the pump has not [...] EDT TH Visit (TeleHealth) Infectious Disease at [place] [phone] Lilli Joy APRN [facility] [place] [address] 12/03/2023 12:30 PM EDT Office Visit Infectious Disease at [place] [phone] [facility] [place] [address] 12/03/2023 2:30 PM EDT Appointment Radiology at [place] [phone] [facility] [place] [address] documented as of this encounter Visit Diagnoses Diagnosis Spasticity Abnormal involuntary movements Postoperative wound infection, subsequent encounter documented in this encounter Care Teams Legal Mediator Relationship Specialty Start Date End Date Naina Lindsey MD [address] [place] [address] [place] [address] PCP - General 03/19/10 08/25/16 documented as of this encounter
--- OUTSIDE RECORDS SUMMARY | 2023-11-16 17:00 | XMS_ITS | Encounter Summary ---
Author Organization [facility] [place] [address] Care Team Providers Care Unit Assembler Name Role Phone Naina Lindsey MD Primary Care Provider [phone] Reason for Visit * Reason Onset Date Comments Bumped Appointment 09/29/2014 Encounter Details Date Type Department Care Team (Late st Contact Info) Description 09/29/2014 Telephone [place] [address] Mesha Cabral MD [facility] DR [place] [address] Bumped Appointment Social History Tobacco Use Types [...] rescheduled. * Telephone Encounter - Emelyn Perez - 10/25/2014 8:45 AM EDT Message at [...] EDT TH Visit (TeleHealth) Infectious Disease at [place] [phone] Lilli Joy APRN [facility] [address] [place] [address] 12/03/2023 12:30 PM EDT Office Visit Infectious Disease at [place] [phone] Hollie Ambriz MD [facility] [place] [address] 12/03/2023 2:30 PM EDT Appointment Radiology at [place] [phone] Andrade Melvin MD [facility] [place] [address] documented as of this encounter Visit Diagnoses Not on filedocumented in this encounter Care Teams Unit Assembler Relationship Specialty Start Date End Date Naina Lindsey MD [address] [place] [address] PCP - General 03/19/10 08/25/16 documented as of this encounter
--- OUTSIDE RECORDS SUMMARY | 2023-11-16 17:00 | XMS_ITS | Encounter Summary ---
Author Organization [facility] Address [facility] [place] [address] Care Team Providers Care Drop Tester Name Role Phone Naina Lindsey MD Primary Care Provider [phone] Encounter Details Date Type Department Care Team (Latest Contact Info) Description 11/09/2014 11:01 AM EDT - 11/09/2014 11:59 PM EDT Hospital Encounter XRay at [address] [place] [address] Acquired dysplasia of hip, unspecified laterality; Traumatic [...] EDT TH Visit (TeleHealth) Infectious Disease at [place] [phone] Lilli Joy [place] [address] 12/03/2023 12:30 PM EDT Office [place] [address] Hollie Ambriz MD [facility] [place] [address] 12/03/2023 2:30 PM EDT [place] [address] Andrade Melvin MD [facility] [place] [address] documented as of this encounter Procedures Procedure [...] limb documented in this encounter Care Teams Drop Tester Relationship Specialty Start Date End Date Naina Lindsey MD [address] [place] [address] PCP - General 03/19/10 08/25/16 documented as of this encounter
--- OUTSIDE RECORDS SUMMARY | 2023-11-16 17:00 | XMS_ITS | Encounter Summary ---
Author Organization [place] [address] Care Team Providers Care Petrography Teacher Name Role Phone Naina Lindsey MD Primary Care Provider [phone] Reason for Referral * Consultation (Routine) - Specialty Diagnoses / Procedures Referred By Contac t Referred To Contact Physical Medicine and Rehab Diagnoses Acquired dysplasia of hip, unspecified laterality Traumatic brain injury, without LOC, sequela Ty Woods MD [facility] [place] [address] Alek Loaiza MD [address] [place] [address] [address] [place] [address] Referral ID Status Reason Start Date Expiration Date V isits Requested Visits Authorized [id number] Consult, Test & Treat 07/29/2016 01/25/2017 1 1 Encounter Details Date Type Department Care Team (Late st Contact Info) Description 07/29/2016 Orders [place] [address] Ty Woods MD [facility] [place] [address] Acquired dysplasia of hip, unspecified laterality; Traumatic [...] Visit (TeleHealth) Infectious Disease at [place] [address] [address] [facility] [place] [address] 12/03/2023 12:30 PM EDT Office Visit Infectious Disease at [place] [address] Hollie Ambriz MD [facility] [place] [address] 12/03/2023 2:30 PM EDT Appointment Radiology at [place] [address] Andrade Melvin MD [facility] [place] [address] Scheduled Referrals Name Type Priority Associated Diagnoses Orde r Schedule Referral to Orthopaedics Outpatient Referral Routine Acquired dysplasia of hip, unspecified laterality Traumatic Brain Injury, Without Loc, Sequela Ordered: 07/29/2016 documented as of this encounter Visit Diagnoses Diagnosis Acquired dysplasia of hip, unspecified laterality Traumatic brain injury, without LOC, sequela documented in this encounter Care Teams Petrography Teacher Relationship Specialty Start Date End Date Naina Lindsey [place] [address] PCP - General 03/19/10 08/25/16 documented as of this encounter
--- OUTSIDE RECORDS SUMMARY | 2023-11-16 17:00 | XMS_ITS | Encounter Summary ---
Author Organization [place] [address] Care Team Providers Care Blueprint Duplicator Name Role Phone Naina Lindsey MD Primary Care Provider [phone] Encounter Details Date Type Department Care Team (Late st Contact Info) Description 12/29/2014 Orders [place] [address] Mesha Cabral MD [facility] [place] [address] Acquired dysplasia of hip, unspecified laterality; Presence [...] EDT TH Visit (TeleHealth) [place] [address] Lilli Joy APRN [facility] [place] [address] 12/03/2023 12:30 PM EDT Office Visit Infectious Disease at [place] [phone] Hollie Ambriz MD [facility] [place] [address] 12/03/2023 2:30 PM EDT Appointment Radiology at [place] [phone] Andrade Melvin MD [facility] [place] [address] documented as of this encounter Visit Diagnoses Diagnosis Acquired dysplasia of hip, unspecified laterality Presence of intrathecal baclofen pump Scoliosis Scoliosis (and kyphoscoliosis), idiopathic Spasticity Abnormal involuntary movements Traumatic brain injury, sequela documented in this encounter Care Teams Blueprint Duplicator Relationship Specialty Start Date End Date Naina Lindsey MD [address] [place] [address] PCP - General 03/19/10 08/25/16 documented as of this encounter
--- OUTSIDE RECORDS SUMMARY | 2023-11-16 17:00 | XMS_ITS | Encounter Summary ---
Author Organization [facility] Address [facility] [place] [address] Care Team Providers Care Construction Field Engineer Name Role Phone Emelyn Easley MD Primary Care Provider [phone] Reason for Referral * Physical Therapy (Routine) - Closed Specialty Diagnoses / Procedures Referred By Contac t Referred To Contact Diagnoses Traumatic brain injury, without LOC, sequela Acquired dysplasia of hip, unspecified laterality Spasticity Neuromuscular scoliosis of lumbar region Vanda Carter PA [facility] [place] [address] Unknown None Referral ID Status Reason Start Date Expiration Date V isits Requested Visits Authorized [id number] Closed Evaluate and Treat 11/24/2016 05/23/2017 12 12 * Diagnostic Test (Routine) - Closed Specialty Diagnoses / Procedures Referred By Contac t Referred To Contact Radiology Diagnoses Traumatic brain injury, without LOC, sequela Acquired dysplasia of hip, unspecified laterality Spasticity Neuromuscular scoliosis of lumbar region Procedures NM Whole Body Bone Scan Vanda Carter [place] [facility] [place] [address] [place] [address] Referral ID Status Reason Start Date Expiration Date V isits Requested Visits Authorized [id number] Closed Specialty Service Requested 11/24/2016 11/24/2017 1 1 Reason for Visit * Consultation (Routine) - Closed Specialty Diagnoses / Procedures Referred By Contac t Referred To Contact Orthopaedics Diagnoses leg pain,chronic, right Emelyn Easley MD [address] [place] [address] [facility] [address] [place] [phone] Referral ID Status Reason Start Date Expiration Date V isits Requested Visits Authorized [id number] Closed Consult, Test & Treat [facility] 08/26/2016 08/26/2017 1 1 Encounter Details Date Type Department Care Team (Late st Contact Info) Description 11/24/2016 1:00 PM EDT Office [place] [address] Josse Mckee MD [facility] DR ORTHOPAEDIC [place] [address] Traumatic brain injury, without LOC, sequela; Acquired [...] NAME: Tana Cavazos AGE: 21 y.o.. MR#: [id number] ? DATE OF VISIT: 11/24/2016 ? STAFF: [...] EDT TH Visit (TeleHealth) [place] [address] Lilli Joy APRN [facility] [place] [address] 12/03/2023 12:30 PM EDT Office [place] [address] Hollie Ambriz MD [facility] [place] [address] 12/03/2023 2:30 PM EDT [place] [address] Andrade Melvin MD [facility] [place] [address] Scheduled Referrals Name Type Priority Associated Diagnoses [...] pelvis cannot be evaluated. Josse Mckee MD IMG NM ORDERABLES documented [...] scoliosis documented in this encounter Care Teams Construction Field Engineer Relationship Specialty Start Date End Date Emelyn Easley MD [address] [place] [id number] PCP - General Family Medicine 08/26/16 05/26/18 documented as of this encounter
--- OUTSIDE RECORDS SUMMARY | 2023-11-16 17:00 | XMS_ITS | Encounter Summary ---
Author Organization [facility] Address [facility] [place] [address] Care Team Providers Care Pouako K[place] Maori Name Role Phone Naina Lindsey MD Primary Care Provider [phone] Reason for Visit * Reason Onset Date Comments Appointment 08/02/2015 Encounter Details Date Type Department Care Team (Late st Contact Info) Description 08/02/2015 Telephone [place] [address] Mesha Cabral MD [facility] [place] [address] Appointment Social History Tobacco Use Types Packs/Day [...] EDT TH Visit (TeleHealth) [place] [address] Lilli Joy APRN [facility] [place] [address] 12/03/2023 12:30 PM EDT Office [place] [address] Hollie Ambriz MD [facility] [place] [address] 12/03/2023 2:30 PM EDT Appointment Radiology at [place] [phone] Andrade Melvin MD [facility] [place] [address] documented as of this encounter Visit Diagnoses Not on filedocumented in this encounter Care Teams P[place] Maori Relationship Specialty Start Date End Date Naina Lindsey MD [address] [place], [place] [address] [address] PCP - General 03/19/10 08/25/16 documented as of this encounter
--- OUTSIDE RECORDS SUMMARY | 2023-11-16 17:00 | XMS_ITS | Encounter Summary ---
Author Organization [facility] Address [facility] [place] [address] Care Team Providers Care Magazine Publisher Name Role Phone Naina Lindsey MD Primary Care Provider [phone] Reason for Visit * Reason Comments Scoliosis Encounter Details Date Type Department Care Team (Late st Contact Info) Description 12/29/2014 9:00 AM EDT Office [place] [phone] Ty Vogel MD [facility] [place] [address] Scoliosis Discharge Disposition: Home Social History Tobacco [...] past history with care received both at [facility] and in [place]. PAST MEDICAL HISTORY: For full history, please [...] EDT TH Visit (TeleHealth) [place] [address] Lilli Joy [place]N [facility] [address] 12/03/2023 12:30 PM EDT Office [place] [phone] Hollie Ambriz MD [facility] [place] [address] 12/03/2023 2:30 PM EDT Appoint[place] [address] Andrade Melvin MD [facility] [place] [address] documented as of this encounter Visit Diagnoses Diagnosis Scoliosis Scoliosis (and kyphoscoliosis), idiopathic documented in this encounter Care Teams Magazine Publisher Relationship Specialty Start Date End Date Naina Lindsey MD [address] [place] [address] [place] [address] PCP - General 03/19/10 08/25/16 documented as of this encounter
--- OUTSIDE RECORDS SUMMARY | 2023-11-16 17:00 | XMS_ITS | Encounter Summary ---
[place] [address] Care Team Providers Care Complaint Analyst Name Role Phone Naina Lindsey MD Primary Care Provider [phone] Reason for Visit * Reason Onset Date Comments Referral 09/13/2014 Encounter Details Date Type Department Care Team (Late st Contact Info) Description 09/13/2014 [place] [address] Emelyn Perez Referral Social History Tobacco Use [...] from referral: [facility] On a in [facility]. documented in this encounter Plan of Treatment Upcoming Encounters Date Type Department Care Team (Late st Contact Info) Description 11/19/2023 2:30 PM EDT TH Visit (TeleHealth) Infectious Disease at [place] [phone] Lilli Joy [address] [facility] [place] [place] [address] 12/03/2023 12:30 PM EDT Office Visit Infectious Disease at [address] Hollie Ambriz MD [facility] [place] [address] 12/03/2023 2:30 PM EDT Appointment Radiology at [address] Andrade Melvin MD [facility] [place] [address] documented as of this encounter Visit Diagnoses Not on filedocumented in this encounter Care Teams Complaint Analyst Relationship Specialty Start Date End Date Nain[place] [address] PCP - General 03/19/10 08/25/16 documented as of this encounter
--- OUTSIDE RECORDS SUMMARY | 2023-11-16 17:00 | XMS_ITS | Encounter Summary ---
Author Organization [facility] Address [facility] [place] [address] Care Team Providers Care Medical Biller/Coder Name Role Phone Naina Lindsey MD Primary Care Provider [phone] Encounter Details Date Type Department Care Team (Late st Contact Info) Description 11/09/2014 Orders [place] [phone] Mesha Cabral MD [facility] [place] [address] Scoliosis Social History Tobacco Use Types Packs/Day [...] EDT TH Visit (TeleHealth) [place] [phone] Lilli Joy [place]N [facility] [place] [address] 12/03/2023 12:30 PM EDT Office Visit Infectious Disease at [place] [phone] Hollie Ambriz MD [facility] [place] [address] 12/03/2023 2:30 PM EDT [place] [address] Andrade Melvin MD [facility] [place] [address] documented as of this encounter Visit Diagnoses Diagnosis Scoliosis Scoliosis (and kyphoscoliosis), idiopathic documented in this encounter Care Teams Medical Biller/Coder Relationship Specialty Start Date End Date Naina Lindsey MD [place] [address] PCP - General 03/19/10 08/25/16 documented as of this encounter
--- OUTSIDE RECORDS SUMMARY | 2023-11-16 17:00 | XMS_ITS | Encounter Summary ---
Author Organization [facility] [place] [address] Care Team Providers Care Inspector Rubber Stamp Die Name Role Phone Naina Lindsey MD Primary Care Provider [phone] Reason for Visit * Reason Onset Date Comments Appointment 10/12/2014 Encounter Details Date Type Department Care Team (Late st Contact Info) Description 10/12/2014 Telephone [place] [phone] Mesha Cabral MD [facility] [place] [address] Appointment Social History Tobacco Use Types Packs/Day [...] EDT TH Visit (TeleHealth) Infectious Disease at [address] Lilli Joy APRN [facility] [place] [address] 12/03/2023 12:30 PM EDT Office Visit Infectious Disease at [place] [address] Hollie Ambriz MD [facility] [place] [address] 12/03/2023 2:30 PM EDT Appointment [place] [address] Andrade Melvin MD [facility] DR [place] [address] documented as of this encounter Visit Diagnoses Not on filedocumented in this encounter Care Teams Inspector Rubber Stamp Die Relationship Specialty Start Date End Date Naina Lindsey MD [address] [place] [address] [place] [address] PCP - General 03/19/10 08/25/16 documented as of this encounter
--- OUTSIDE RECORDS SUMMARY | 2023-11-16 17:01 | XMS_ITS | Encounter Summary ---
[place] [address] Care Team Providers Care Relationship Manager Name Role Phone Naina Lindsey MD Primary Care Provider [phone] Encounter Details Date Type Department Care Team (Late st Contact Info) Description 05/26/2014 4:16 PM EST Anesthesia [place] [phone] Buster Rajput MD [facility] [place] [address] Yury Kruse MD [facility] [place] [address] Anesthesia Record Procedure Summary Procedure Name Responsible [...] (LDA cleanup utility RA#[id number]) 05/26/14 0000 by Zakai Thomas RN 12/23/21 1715 by Philippe Bonner [...] HEAD, BILATERAL performed by BARRERA OLIVER [facility] OR ??? Apply of hip casts, two legs 08/15/2010 CAST APPLICATION, HIP SPICA, BOTH LEGS performed by BARRERA OLIVER at [facility] OR ??? Removal deep implant 08/15/2010 REMOVAL IMPLANT, DEEP, BRUNO performed by BARRERA OLIVER at [facility] OR ??? Osteotomy femur shaft/supracondy 08/15/2010 ??OSTEOTOMY, FEMUR SHAFT OR SUPRACONDYLAR W/O FIXATION performed by BARRERA OLIVER at [facility] OR ??? Remove spinal canal catheter N/A 05/11/2014 REMOVAL OF INTRATHECAL OR EPIDURAL CATHETER performed by Jamaal Samuel MD at [facility] OR ??? Remove infusn device/pump N/A 05/11/2014 REMOVAL OF SPINE INFUSION PUMP performed by Jamaal Samuel MD at [facility] OR ? ? I&d, post spine, lumb/sacr/lumbosac N/A 05/20/2014 @I & D, OPEN, DEEP ABSCESS, LUMBAR, SACRAL, LUMBOSACRAL performed by Freddy Isbell MD at [facility] OR ??? Repr, dural/csf leak, not req laminectomy N/A 05/20/2014 @REPAIR DURAL\CSF LEAK,NOT REQUIRING LAMINECTOMY performed by Freddy Isbell MD at [facility] OR History Substance Use Topics ??? Smoking status: Never Smoker ??? Smokeless tobacco: Never Used Comment: NO SMOKERS IN THE HOME ??? Alcohol Use: No History Drug Use No Allergies Allergen Reactions ??? Fluoxetine Other (See Comments) HIVES, HEART RACES ??? Tegaderm [Transparent Dressings] Itching and Dermatitis Please use [id number] Medications: MAR and/or home medications have been [...] EDT TH Visit (TeleHealth) Infectious Disease at [place] [phone] Lilli Joy APRN [facility] [address] [place] [id number] 12/03/2023 12:30 PM EDT Office [place] [address] Hollie Ambriz MD [facility] [place] [address] 12/03/2023 2:30 PM EDT Appointment Radiology at [place] [phone] Andrade Melvin MD [facility] [place] [address] documented as of this encounter Visit Diagnoses [...] mg documented in this encounter Care Teams Relationship Manager Relationship Specialty Start Date End Date [place] [address] PCP - General 03/19/10 08/25/16 documented as of this encounter
--- OUTSIDE RECORDS SUMMARY | 2023-11-16 17:01 | XMS_ITS | Encounter Summary ---
Author Organization [facility] [place] [address] Care Team Providers Care Sociology Teacher Name Role Phone Naina Lindsey MD Primary Care Provider [phone] Encounter Details Date Type Department Care Team (Late st Contact Info) Description 05/20/2014 8:18 PM EST Anesthesia Event [place] [phone] Eli Alexander MD [facility] [place] [address] Neva Gómez MD [facility] [place] [address] Anesthesia Record Procedure Summary Procedure Name Responsible [...] (LDA cleanup utility RA#[id number]) 05/11/14 0000 by lGoria Salmon RN 12/23/21 1715 by Philippe Bonner [...] 05/20/14; 1800; jugular vein, external left (neck); [id number] catheter system; 18 gauge, 1 in length; [...] OR Notes * Anesthesia Postprocedure Evaluation - VernEimlyqamar Dumont - 05/21/2014 12:01 AM EST Patient: [...] by BARRERA OLIVER [facility] MAIN OR ??? Apply of hip casts, two legs 08/15/2010 CAST APPLICATION, HIP SPICA, BOTH LEGS performed by BARRERA OLIVER at [facility] MAIN OR ??? Removal deep implant 08/15/2010 REMOVAL IMPLANT, DEEP, BRUNO performed by BARRERA OLIVER at [facility] MAIN OR ??? Osteotomy femur shaft/supracondy 08/15/2010 ??OSTEOTOMY, FEMUR SHAFT OR SUPRACONDYLAR W/O FIXATION performed by BARRERA OLIVER at [facility] MAIN OR ??? Remove spinal canal catheter N/A 05/11/2014 REMOVAL OF INTRATHECAL OR EPIDURAL CATHETER performed by Jamaal Samuel MD at [facility] MAIN OR ??? Remove infusn device/pump N/A 05/11/2014 REMOVAL OF SPINE INFUSION PUMP performed by Jamaal Samuel MD at [facility] MAIN OR History Substance Use Topics ??? [...] EDT TH Visit (TeleHealth) [place] [address] Lilli Joy APRN [facility] [place] [address] 12/03/2023 12:30 PM EDT Office [place] [address] Hollie Ambriz MD [facility] [place] [address] 12/03/2023 2:30 PM EDT [place] [address] Andrade Melvin MD [facility] [place] [address] documented as of this encounter Visit Diagnoses [...] mg documented in this encounter Care Teams Sociology Teacher Relationship Specialty Start Date End Date Naina Lindsey MD [address] [place] [address] PCP - General 03/19/10 08/25/16 documented as of this encounter
--- OUTSIDE RECORDS SUMMARY | 2023-11-16 17:01 | XMS_ITS | Encounter Summary ---
Author Organization [facility] [place] [address] Care Team Providers Care Paraplanner Name Role Phone Naina Lindsey MD Primary Care Provider [phone] Encounter Details Date Type Department Care Team (Late st Contact Info) Description 05/23/2014 External Results [place] [address] Unknown None Social History Tobacco Use Types [...] EDT TH Visit (TeleHealth) [place] [address] Lilli Joy APRN [facility] [place] [address] 12/03/2023 12:30 PM EDT Office [place] [address] Hollie Ambriz MD [facility] [place] [address] 12/03/2023 2:30 PM EDT [place] [address] Andrade Melvin MD [facility] [place] [address] documented as of this encounter Procedures Procedure Name Priority Date/Time Associated Diagnosis Comments CELLAR PUMPER Routine 05/21/2014 documented in this encounter Results * 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
--- OUTSIDE RECORDS SUMMARY | 2023-11-16 17:01 | XMS_ITS | Encounter Summary ---
Author Organization [facility] Address [facility] [place] [address] Care Team Providers Care Sheriff'S Sergeant Name Role Phone Naina Lindsey MD Primary Care Provider [phone] Reason for Visit * Reason Comments Post-op Problem Encounter Details Date Type Department Care Team (Latest Contact Info) Description 05/20/2014 8:13 PM EST - 06/02/2014 4:25 PM [facility] Hospital Encounter [place] [address] Belkis Louie MD [facility] [place] [address] Freddy Burciaga [address] [facility] [place] [address] Jamaal Samuel MD [facility] [place] [address] Febrile illness, acute Discharge Disposition: Home with [...] Routine, Hospital Performed Vendor / contact information: [facility] Patient location post discharge: home Service requested: IV abx Start date: 05/26/2014 Responsible MD post discharge contact info: PCP Luis (Edit) Referral to Home Health - at DISCHARGE Routine, Clinic Performed Agency name and contact information: [facility] Patient location post discharge: home What services are requested: Registered Nurse, Home Health Aide, Physical Therapy, Occupational Therapy Start date: 05/26/2014 Responsible MD post discharge contact info: PCP PATIENT'S LOCATION: Tana Hayes Dirk [address] [place] [phone] (home) In discussion with the attending physician, it is certified that this patient is under their care and that they, or a Nurse Practitioner,Clinical Nurse specialist or Physician Dairy Specialist who is working directly with them, had [...] Continue with therapies OT: Continue with therapies TAX COLLECTION COORDINATOR: Continue support HOME HEALTH CARE AGENCY: [facility]. PHONE: [phone] FAX: [phone] Start of care: 05/26/14 Please note that any additional orders needs or changes will need to be obtained from this patient's PCP: MD Coby [address] / [place] [address] All A agencies which cover the area of patient's residence have been reviewed, either verbally or in writing, and patient/family have chosen the home health care agency noted Emergency contact: After hours and weekends, call the [facility] mix crusher operator at and ask them to page the neurosurgery resident automation and controls manager. documented in this encounter Medications at Time [...] given to the patient or sales representative adding machines. 6) If VNA was ordered, I faxed [...] 0.9% 50 mL Mini-Bag Plus 2 g EdovhjlgudcW5E ??? baclofen 10 mg Oral Nightly ??? [...] elevated HR this am S: Kenneth Valiente. [facility], [phone] singing ABCs and counting along with stretches [...] pt to d/chome with support and continued PT/OT/PRODUCTION MATERIAL HANDLER/VNA services. Staff communication/Mobility Recommendations: Pt. Would benefit [...] timed interventions: 30 minutes for TherEx-F Pager: [phone] Mary Joe OT Occupational Therapy Rehabilitation Department * Isra Perez RN - 06/01/2014 2:43 PM EST Patient Name: Tana Shelton Patient Age: 18 y.o. Birthdate: 1995 Admit date: 05/20/2014 Attending Physician: Jamaal Samuel MD OFFICE OF CARE MANAGEMENT Farhana Perez RN Pager: [phone] CLINICAL ANIMAL CARE SPECIALIST PROGRESS NOTE e-DH reviewed. Report received from DEMI Sanchez. Patient continues to require acute inpatient care for the treatment of infection. Patient remains on triple abx while awaiting final cultures. [facility] and [facility] have been referred to for discharge. Met with patient's mother at bedside. Mom had multiple questions the other day regarding equipment for home. Mattress for hospital bed was ordered and delivered to home from [facility]. Tomasa Sling was ordered and is to be delivered by [facility] when it ships to [facility] warehouse. TLSO brace to be fitted by [facility]. Mom also inquired about a new motorized wheelchair. Called [facility] in [place] to see if patient would qualify, left message with Oliver- the rehabilitation tech for [facility]. Patient will need a assessment [...] 0.9% 50 mL Mini-Bag Plus 2 g HurrxzaqmufB0D ??? baclofen 10 mg Oral Nightly ??? [...] has recovered and I can review the [facility] records and films * Natividad Esqueda, PT [...] family in a single story home in [place], [place]. Pt's mother reports that there is no stair requirement, and that she has all necessary equipment. Stairs: 0 without a rail to enter Baseline Mobility: Completely dependent for all care, home nursing VNA services 3x/week, school-based PT/OT/PRODUCTION MATERIAL HANDLER, pt due to receive a communication device [...] than in previous treatment session, counting withthis continuity writer during stretching Objective: Patient seen for [...] internal rotators, adductors ?? Pt helped this continuity writer with opposite UE when performing stretching [...] session, playing with toys, playfully tricking this continuity writer when counting during passive stretching, and [...] exercise Natividad Esqueda PT, DPT 05/31/2014 Pager: [phone] Physical Therapy Inpatient Rehabilitation Department * Nathalie [...] OF CARE MANAGEMENT Farhana Perez RN Pager: [phone] CLINICAL ANIMAL CARE SPECIALIST PROGRESS NOTE e-DH reviewed. Report received from DEMI Sanchez. Patient continues to require acute inpatient care for the treatment of infection. Patient is on triple abx. Patient needs a new mattress for her hospital bed at home. Patient's mother would like order placed with [employer]. Order pended and booking sent via [employer] Plan: CRC will continue to follow for [...] pt to d/chome with support and continued PT/OT/PRODUCTION MATERIAL HANDLER/VNA services. Staff communication/Mobility Recommendations: Pt. Would benefit [...] timed interventions: 45 minutes for TherEx Pager: [phone] Mary Joe OT Occupational Therapy Rehabilitation Department [...] 0.9% 50 mL Mini-Bag Plus 2 g YkzbefwwhnoS2F ??? baclofen 10 mg Oral Nightly ??? [...] OF CARE MANAGEMENT Farhana Perez RN Pager: [phone] CLINICAL ANIMAL CARE SPECIALIST PROGRESS NOTE e-DH reviewed. Report received from [...] as pt becomes available. Please contact this continuity writer with any further questions or concerns. Thank you. Pager: [phone] Mary Joe, OTR/L Occupational Therapy Inpatient Rehabilitation [...] family in a single story home in [place], [place]. Pt's mother reports that there is no stair requirement, and that she has all necessary equipment. Stairs: 0 without a rail to enter Baseline Mobility: Completely dependent for all care, home nursing VNA services 3x/week, school-based PT/OT/PRODUCTION MATERIAL HANDLER, pt due to receive a communication device [...] pt very smiley today, counting with this continuity writer during stretching, showing off her favorite [...] exercise Natividad Esqueda, PT, DPT 05/29/2014 Pager: [phone] Physical Therapy Inpatient Rehabilitation Department * Wai [...] not hesitate to page us on pager [phone] with further questions or concerns. Patient discussed [...] 0.9% 50 mL Mini-Bag Plus 2 g LlaguutmfynL9F ??? baclofen 10 mg Oral Nightly ??? [...] 0.9% 50 mL Mini-Bag Plus 2 g BbsycjvxbafT3Z ??? baclofen 10 mg Oral Nightly ??? [...] CRC received call from EUNICE Hair, from [place], [place] or Asking for status as they will follow her after discharge for IV antibiotic treatment. She will need an OPAT order faxed to above agency when she is ready for discharge as well as administration teaching for home. When ready for discharge, [facility] PHONE: [phone] FAX: [phone] will also need to be updated. Referral had been made by previous CRC. Covering pager #[phone] for pager #[phone]. * Darius Maguire T - 05/27/2014 8:23 [...] 0.9% 50 mL Mini-Bag Plus 2 g MdeuyssprrjW5F ??? baclofen 10 mg Oral Nightly ??? [...] Dressing clean and dry Wound without fluctuance [address] Assessment/Plan:: 18 y.o. female s/p removal [...] family in a single story home in [place], [place]. Pt's mother reports that there is no stair requirement, and that she has all necessary equipment. Stairs: 0 without a rail to enter Baseline Mobility: Completely dependent for all care, home nursing VNA services 3x/week, school-based PT/OT/PRODUCTION MATERIAL HANDLER, pt due to receive a communication device [...] Natividad J Cavagnaro, PT, DPT 05/26/2014 Pager: [phone] Physical Therapy Inpatient Rehabilitation Department * Freddy Burciaga MD - 05/26/2014 6:27 AM EST Neurosurgery - Inpatient Progress Note ID: Tana Shelton, 18 y.o. female s/p removal of retained hardware, washout of infection 05/20 POD 6 Interval Hx: -ALEKSANDRA -Neurologically stable Objective: Medications: Scheduled Meds: ??? cefTAZidime (FORTAZ) 2g vial attach to sodium chloride 0.9% 50 mL Mini-Bag Plus 2 g ItflnkpzkxqF2C ??? baclofen 10 mg Oral Nightly ??? [...] (05/26) or when appropriate. Please page this continuity writer if you have any questions, thank you. Natividad Esqueda PT Pager #[phone] Physical Therapy Inpatient Rehabilitation * Mary Joe, [...] pt to d/chome with support and continued PT/OT/PRODUCTION MATERIAL HANDLER/VNA services. Spoke to CRC this am about [...] timed interventions: 27 minutes for TherEx Pager: [phone] Mary Joe OT Occupational Therapy Rehabilitation Department [...] 0.9% 50 mL Mini-Bag Plus 2 g TnejhxhzefbB7O ??? baclofen 10 mg Oral Nightly ??? [...] of Care Management Farhana Perez RN Pager: [phone] Clinical Public Records Officer Home IV Antibiotic Therapy Referral Note. Report received from NeuroSurgery Team that patient will require continued home IV antibiotic therapy after discharge from the hospital. Met with patient/family to discuss vendor and visiting nurse choices for home IV antibiotic therapy. Reviewed Home Infusion Vendors and Home Health Agencies that serve patient???s address and accept patient???s insurance. Home Health Agency: Patient requested referral to [facility]. PHONE: [phone] FAX: [phone]. Referrals sent via edischarge. Home Infusion Vendor: Patient requested referral to [place], [place] Tel: or Fax: . Referrals sent [...] 0.9% 50 mL Mini-Bag Plus 2 g XwmptiafmbuE7W ??? baclofen 10 mg Oral Nightly ??? [...] 0.9% 50 mL Mini-Bag Plus 2 g IxzblqihotpI4U ??? baclofen 10 mg Oral Nightly ??? [...] PM EST Office of Care Management Clinical Public Records Officer Patient Name: Tana Shelton : 1995, 18 [...] /PRESCRIPTION COVERAGE: [place] [facility] CURRENT HOME/COMMUNITY SERVICES/EQUIPMENT: DME: [facility] - [facility] bed, wheelchair, tomasa lift, shower chair. Home Health Agency: [facility] PRIMARY CARE PHYSICIAN: NAINA LINDSEY MD [phone] POTENTIAL DISCHARGE NEEDS: Resume vna visits. Mother stated that she has [facility] - RN and Aide currently. Waiting to confirm this and pt needs. Might need home IV antibx. TRANSPORTATION @ D/C: family PLAN: CRC will continue to monitor progress, follow for continuity of care and assist with discharge planning while hospitalized Lesly Jesus RN Office of Care Management Clinical Public Records Officer Covering for Farhana Chris [phone] Pager [phone] * Yandy Dasilva, PharmD - 05/22/2014 9:46 AM EST Clinical Pharmacist Note-Vanc Tana Barlowrd [id number] 1995 Tana Barlowrd is a 18 y.o. [...] have. Alternately, during off-hours you may call [phone] to contact a pharmacist. Yandy Dasilva, PHARMD Pager [phone] * Freddy Burciaga MD - 05/22/2014 6:59 [...] AND Vancomycin, trough AND Vancomycin Level - [facility] Order Reminder, oxyCODONE Vitals: Temp: [36.8 ??C [...] Clinically does not seem to be of REGISTERED NURSE OBSTETRICS origin. Continue triple antibiotics. ID consult. Cultures [...] given to [facility]. Transferred to [place] [address] with transport services, RN + family members. Please call Anurag ICU-RN at [phone] with regards to any questions post transfer. [...] mcL Appearance UA Hazy (*) Clear Spec [place] UA 1.026 1.002 - 1.030 Color UA [...] SHELTON Ordered By: CELSONIKITETO Freddy DAILEY MR#: [id number] LOC: OR /Sex: 1995 (18 years), Female PROCEDURE: Tissue Culture SOURCE: Back COLLECTED: 05/20/2014 20:20 FREE TEXT SOURCE: Lumbar Wound Culture STARTED: 05/20/2014 22:13 STAINS / PREPARATIONS Gram Stain Report Verified:05/20/2014 22:28 Few White Blood Cells seen No microorganisms seen. TISSUE CULTURE Result Value Ref Range Tissue Culture Value: Patient Name: TANA SHELTON Ordered By: Freddy BURCIAGA MR#: [id number] LOC: OR /Sex: 1995 (18 years), Female [...] II initiated 0040: Report given to Jenn STORE HOST info reviewed/questions answered, pt ready for transfer [...] to the planned procedure. Hand Hygiene: The blender helper did perform hand hygiene prior to line insertion. Catheter type: PICC Lot number: [id number] Procedure Technique: Skin was prepped with chlorhexidine. [...] warm and was flushed. They called the automation and controls manager neurosurgeon, who advised that they come to [...] FEMORAL HEAD, BILATERAL performed by YAS OLIVER [facility] MAIN OR ??? Apply of hip casts, two legs 08/15/2010 CAST APPLICATION, HIP SPICA, BOTH LEGS performed by YAS OLIVER at [facility] MAIN OR ??? Removal deep implant 08/15/2010 REMOVAL IMPLANT, DEEP, BRUNO performed by YAS OLIVER at [facility] MAIN OR ??? Osteotomy femur shaft/supracondy 08/15/2010 ??OSTEOTOMY, FEMUR SHAFT OR SUPRACONDYLAR W/O FIXATION performed by YAS OLIVER at [facility] MAIN OR ??? Remove spinal canal catheter N/A 05/11/2014 REMOVAL OF INTRATHECAL OR EPIDURAL CATHETER performed by Jamaal Samuel MD at [facility] MAIN OR ??? Remove infusn device/pump N/A 05/11/2014 REMOVAL OF SPINE INFUSION PUMP performed by Jamaal Samuel MD at [facility] MAIN OR Medications: No current facility-administered medications [...] stepfather Tobacco exposure:No Day care/year in school: [employer] Physical Exam: Vitals: Patient Vitals for the [...] mcL Appearance UA Hazy (*) Clear Spec [place] UA 1.026 1.002 - 1.030 Color UA [...] 05/21/14 0127 Lilli Esquivel MD Resident 05/21/14 3730 Associated attestation - Belkis Louie MD - [...] intrathecal baclofen pump in 2007 at the [facility]. Mother feels that the pump [...] Routine, Hospital Performed Vendor / contact information: [facility] Patient location post discharge: home Service requested: IV abx Start date: 05/26/2014 Responsible MD post discharge contact info: PCP New (Edit) Referral to Home Health - at DISCHARGE Routine, Clinic Performed Agency name and contact information: [facility] Patient location post discharge: home What services are requested: Registered Nurse, Home Health Aide, Physical Therapy, Occupational Therapy Start date: 06/06/2014 Responsible MD post discharge contact info: PCP PATIENT'S LOCATION: Tana Freddy Shelton [address] [place] [phone] (home) In discussion with the attending physician, it is certified that this patient is under their care and that they, or a Nurse Practitioner,Clinical Nurse specialist or Physician Dairy Specialist who is working directly with them, had [...] Continue with therapies OT: Continue with therapies TAX COLLECTION COORDINATOR: Continue support HOME HEALTH CARE AGENCY: [facility] PHONE: [phone] FAX: [phone] Start of care: 05/26/14 Please note that any additional orders needs or changes will need to be obtained from this patient's PCP: NAINA LINDSEY MD [address] / [place] [address] All VNA agencies which cover the area of patient's residence have been reviewed, either verbally or in writing, and patient/family have chosen the home health care agency noted Emergency contact: After hours and weekends, call the [facility] mix crusher operator at and ask them to page the neurosurgery resident automation and controls manager. * Plan of Care - Margot Monzon [...] yo. Supervision: Continuous; Moraima. Fannie at home probate judge at bedside this morning ; Mom arrived [...] 11:04 AM EST Clinical Pharmacist Note-Vancomycin Tana Shetlon [id number] 1995 Tana Shelton is a 18 y.o. [...] have. Alternately, during off-hours you may call [phone] to contact a pharmacist. Elmer Tobin PHARMD Pager [phone] * Plan of Care - Leana Hicks [...] Health Knowledge, Opportunity for Enhanced (Adult, NICU, [place], Obstetrics, Pediatric) Goal: Identify Signs and Symptoms [...] Burciaga MD - 05/26/2014 4:52 PM EST [facility] Operative Note Patient Name: Tana Shelton : [id number] MR#: [id number] Case Date: 05/26/2014 Surgeon: Surgeon(s) and Role: [...] (Interventions Implemented as Appropriate) 05/22/14 0634 05/24/14 7164 Discharge Needs Assessment Concerns to be Addressed [...] Health Knowledge, Opportunity for Enhanced (Adult, NICU, [place], Obstetrics, Pediatric) Knowledgeable about Health Subject/Topic achieves [...] (Interventions Implemented as Appropriate) 05/22/14 0634 05/24/14 2807 Discharge Needs Assessment Concerns to be Addressed [...] FEMORAL HEAD, BILATERAL performed by YAS OLIVER [facility] OR ??? Apply of hip casts, two legs 08/15/2010 CAST APPLICATION, HIP SPICA, BOTH LEGS performed by YAS OLIVER at [facility] OR ??? Removal deep implant 08/15/2010 REMOVAL IMPLANT, DEEP, BRUNO performed by YAS OLIVER at [facility] OR ??? Osteotomy femur shaft/supracondy 08/15/2010 ??OSTEOTOMY, FEMUR SHAFT OR SUPRACONDYLAR W/O FIXATION performed by YAS OLIVER at [facility] OR ??? Remove spinal canal catheter N/A 05/11/2014 REMOVAL OF INTRATHECAL OR EPIDURAL CATHETER performed by Jamaal Samuel MD at [facility] OR ??? Remove infusn device/pump N/A 05/11/2014 REMOVAL OF SPINE INFUSION PUMP performed by Jamaal Samuel MD at [facility] OR ? ? I&d, post spine, lumb/sacr/lumbosac N/A 05/20/2014 @I & D, OPEN, DEEP ABSCESS, LUMBAR, SACRAL, LUMBOSACRAL performed by Freddy Burciaga MD at [facility] OR ??? Repr, dural/csf leak, not req laminectomy N/A 05/20/2014 @REPAIR DURAL\CSF LEAK,NOT REQUIRING LAMINECTOMY performed by Freddy Burciaga MD at [facility] MAIN OR Social and Developmental History: Patient lives with her family in a single level home in [place], [place]. Pt's mother reports that their home [...] has an older sister who lives in [place] and 3 younger brothers. She likes to [...] RN and mom assist. Feeding: per mom: STANDING ROCK assist for use of utensils; not observed [...] to d/c home with support and continued PT/OT/PRODUCTION MATERIAL HANDLER/VNA services. Spoke with CRC about consultfor new [...] you for this occupational therapy consult. Pager: [phone] Mary Joe OT 05/24/2014 Occupational Therapy Rehabilitation [...] FEMORAL HEAD, BILATERAL performed by YAS OLIVER [facility] MAIN OR ??? Apply of hip casts, two legs 08/15/2010 CAST APPLICATION, HIP SPICA, BOTH LEGS performed by YAS OLIVER at [facility] MAIN OR ??? Removal deep implant 08/15/2010 REMOVAL IMPLANT, DEEP, BRUNO performed by YAS OLIVER at [facility] MAIN OR ??? Osteotomy femur shaft/supracondy 08/15/2010 ??OSTEOTOMY, FEMUR SHAFT OR SUPRACONDYLAR W/O FIXATION performed by YAS OLIVER at [facility] MAIN OR ??? Remove spinal canal catheter N/A 05/11/2014 REMOVAL OF INTRATHECAL OR EPIDURAL CATHETER performed by Jamaal Samuel MD at [facility] MAIN OR ??? Remove infusn device/pump N/A 05/11/2014 REMOVAL OF SPINE INFUSION PUMP performed by Jamaal Samuel MD at [facility] MAIN OR ? ? I&d, post spine, lumb/sacr/lumbosac N/A 05/20/2014 @I & D, OPEN, DEEP ABSCESS, LUMBAR, SACRAL, LUMBOSACRAL performed by Freddy Burciaga MD at [facility] MAIN OR ??? Repr, dural/csf leak, not req laminectomy N/A 05/20/2014 @REPAIR DURAL\CSF LEAK,NOT REQUIRING LAMINECTOMY performed by Freddy Burciaga MD at [facility] MAIN OR Social History: Patient lives with her family in a single story home in [place], [place]. Pt's mother reports that there is no stair requirement, and that she has all necessary equipment. Stairs: 0 without a rail to enter Baseline Mobility: Completely dependent for all care, home nursing VNA services 3x/week, school-based PT/OT/PRODUCTION MATERIAL HANDLER, pt due to receive a communication device [...] appropriate and joins in counting with this continuity writer while stretching Objective: Pt seen for [...] minutes Natividad Esqueda PT, DPT 05/24/2014 Pager: [phone] Physical Therapy Inpatient Rehabilitation Department * Plan [...] based on it's ability to penetrate the REGISTERED NURSE OBSTETRICS. We need todiscuss whether to pursue an [...] to 40 mEq. One dose of IV [id number] mEq administered per orders. Re-check of K [...] placement of baclofen pump in 2007 in [place]. Due to lack of efficacy the baclofen [...] and Lipase were normal. Per her daycare disability hearing officer, may be related to administration of oxycodone as this has been issue in the past. Cannotexclude component of baclofen withdrawal, but less likely. No current concern for acute REGISTERED NURSE OBSTETRICS process. - Serial exams. Ensure daily BMs [...] although it may not have the best REGISTERED NURSE OBSTETRICS penetration unless meninges are actually inflamed. - [...] fluid only. MD called for antiemetic and MS tylenol. Zofran given when order receivedand med [...] PREVENTION: Assistance: Full assist, mom at bedside. ocular care aide will be coming in today to [...] Burciaga MD - 05/21/2014 11:53 AM EST [facility] Operative Note Patient Name: Tana Shelton : [id number] MR#: [id number] Case Date: 05/20/2014 - 05/21/2014 Surgeon: Surgeon(s) [...] FEMORAL HEAD, BILATERAL performed by YAS OLIVER [facility] MAIN OR ??? Apply of hip casts, two legs 08/15/2010 CAST APPLICATION, HIP SPICA, BOTH LEGS performed by YAS OLIVER at [facility] MAIN OR ??? Removal deep implant 08/15/2010 REMOVAL IMPLANT, DEEP, BRUNO performed by YAS OLIVER at [facility] MAIN OR ??? Osteotomy femur shaft/supracondy 08/15/2010 ??OSTEOTOMY, FEMUR SHAFT OR SUPRACONDYLAR W/O FIXATION performed by YAS OLIVER at [facility] MAIN OR ??? Remove spinal canal catheter N/A 05/11/2014 REMOVAL OF INTRATHECAL OR EPIDURAL CATHETER performed by Jamaal Samuel MD at [facility] MAIN OR ??? Remove infusn device/pump N/A 05/11/2014 REMOVAL OF SPINE INFUSION PUMP performed by Jaamal Samuel MD at [facility] MAIN OR No family history on file. [...] mcL Appearance UA Hazy (*) Clear Spec [place] UA 1.026 1.002 - 1.030 Color UA [...] TANA SHELTON Ordered By: Freddy BURCIAGA MR#: [id number] LOC: OR /Sex: 1995 (18 years), Female PROCEDURE: Tissue Culture SOURCE: Back COLLECTED: 05/20/2014 20:20 FREE TEXT SOURCE: Lumbar Wound Culture STARTED: 05/20/2014 22:13 STAINS / PREPARATIONS Gram Stain Report Verified:05/20/2014 22:28 Few White Blood Cells seen No microorganisms seen. TISSUE CULTURE Result Value Range Tissue Culture Value: Patient Name: TANA SHELTON Ordered By: Freddy BURCIAGA MR#: [id number] LOC: OR /Sex: 1995 (18 years), Female [...] EDT TH Visit (TeleHealth) [place] [phone] Lilli Joy [address] [facility] [place] [address] 12/03/2023 12:30 PM EDT Office [place] [phone] Hollie Ambriz MD [facility] [place] [address] 12/03/2023 2:30 PM [place] [id number] Andrade Melvin MD [facility] [place] [address] Pending Results Name Type Priority Associated Diagnoses [...] REQUIRING LAMINECTOMY Routine 05/20/2014 10:22 PM EST INTERNET CAFE MANAGER CULTURE Routine 5 10:01 PM EST ANAEROBIC [...] S Alek Burciaga MD HEMATOLOGY ORDERABLE S [facility] MILLENNIUM * (ABNORMAL) Basic Metabolic Panel (non-fasting) (06/02/2014 5:55 AM EST) Pathologist [facility] Glucose Lvl 75 60 - 199 mg/dL CERNER MILLENNIUM Comment:Diabetes: >=200 mg/d L plus symptoms BUN 5(L) 8 - 18 mg/dL CERNER MILLENNIUM Creatinine 0.30(L) 0.70 - 1.20 mg/dL CERNER MILLENNIUM Comment: Please note that the pediatric reference intervals supplied above were not validated at [facility]. Results from pediatric patients should be interpreted [...] the following links into your internet browser. [email or web address] Blood specimen (specimen) 06/02/2014 5:55 AM EST 06/02/2014 6:09 AM EST Narrative Resulting Agency Comment Spec In Lab S Alek Burciaga MD CHEMISTRY ORDERABLES Performing Organization Address [facility] Co de Phone Number [facility] * (ABNORMAL) Sedimentation rate (06/01/2014 12:40 PM EST) Sed Rate 46(H) 0 - 20 mm/hr CERNER MILLENNIUM Blood specimen (specimen) Venous Draw / Unknown 06/01/2014 12:40 PM EST 06/01/2014 12:48 PM EST Narrative Resulting Agency Comment Spec In Lab S Alek Burciaga MD HEMATOLOGY ORDERABLE S Performing Organization Address [facility] Co de Phone Number [facility] * High Sensitivity CRP (06/01/2014 12:40 PM EST) CRP High Sens 15.4 mg/L CERNER MILLENNIUM Comment: Interpretations: 1) For accurate cardiac risk [...] ORDERABLE S CERALIN MILLENNIUM * (ABNORMAL) Hemogram (06/01/2014 12:40 PM [...] TOMASENNIUM * (ABNORMAL) Basic Metabolic Panel (non-fasting) (06/01/2014 12:40 PM EST) Glucose Lvl 95 60 - 199 mg/dL CERNER MILLENNIUM Comment:Diabetes: >=200 mg/d L plus symptoms BUN 4(L) 8 - 18 mg/dL CERNER MILLENNIUM Creatinine 0.38(L) 0.70 - 1.20 mg/dL CERNER MILLENNIUM Comment: Please note that the pediatric reference intervals supplied above were not validated at [facility]. Results from pediatric patients should be interpreted [...] the following links into your internet browser. [email or web address] Blood specimen (specimen) 06/01/2014 12:40 PM EST 06/01/2014 12:48 PM EST Narrative Resulting Agency Comment Spec In Lab S Alek Burciaga MD CHEMISTRY ORDERABLES [facility] * Differential, Automated (05/30/2014 6:50 AM EST) [...] intervals supplied above were not validated at [facility]. Results from pediatric patients should be interpreted [...] the following links into your internet browser. [email or web address] Blood specimen (specimen) 05/30/2014 6:50 AM EST [...] Organization Address [facility] de Phone Number CERNER MILLENNIUM * (ABNORMAL) Hemogram (05/29/2014 7:13 [...] MD HEMATOLOGY ORDERABLE S Performing Organization Address City/[facility] Co de Phone Number CERNER MILLENNIUM * (ABNORMAL) Basic Metabolic Panel (non-fasting) (05/29/2014 7:13 AM EST) Glucose Lvl 83 60 - 199 mg/dL CERNER MILLENNIUM Comment:Diabetes: >=200 mg/d L plus symptoms BUN 5(L) 8 - 18 mg/dL CERNER MILLENNIUM Creatinine 0.31(L) 0.70 - 1.20 mg/dL CERNER MILLENNIUM Comment: Please note that the pediatric reference intervals supplied above were not validated at [facility]. Results from pediatric patients should be interpreted [...] the following links into your internet browser. [email or web address] Blood specimen (specimen) 05/29/2014 7:13 AM EST [...] Organization Address [facility] Co de Phone Number [facility] * Vancomycin, trough (05/28/2014 9:00 AM EST) [...] Organization Address [facility] Phone Number [facility] * (ABNORMAL) Basic Metabolic Panel (non-fasting) (05/28/2014 9:00 AM EST) Glucose Lvl 121 60 - 199 mg/dL CERNER MILLENNIUM Comment:Diabetes: >=200 mg/d L plus symptoms BUN 4(L) 8 - 18 mg/dL CERNER MILLENNIUM Creatinine 0.29(L) 0.70 - 1.20 mg/dL CERNER MILLENNIUM Comment: Please note that the pediatric reference intervals supplied above were not validated at [facility]. Results from pediatric patients should be interpreted [...] the following links into your internet browser. [email or web address] Blood specimen (specimen) 05/28/2014 9:00 AM EST [...] intervals supplied above were not validated at [facility]. Results from pediatric patients should be interpreted [...] the following links into your internet browser. [email or web address] POTEAUnkf Blood specimen (specimen) 05/27/2014 5:30 AM EST 05/27/2014 5:39 AM EST Narrative Resulting Agency Comment Spec In Lab Authorizing Provider Result Bala Burciaga MD CHEMISTRY ORDERABLES LINDA BASHIR * Anaerobic Culture (05/26/2014 5:30 PM EST) Anaerobic Culture ? Patient Name: TANA SHELTON ? Ordered By: Freddy BURCIAGA ? MR#: [id number] ?LOC: ??[place] ? /Sex: ??1995 (18 years), [...] ? Ordered By: Freddy BURCIAGA ? MR#: [id number] ?LOC: ??PA ? /Sex: ??1995 (18 years), [...] S ? Patient: TANA SHELTON ? MR#: [id number] ? S=Susceptible ??I=Intermediate ??R=Resistant ??NA=Not Applicable ? [...] ? Ordered By: Freddy BURCIAGA ? MR#: [id number] ?LOC: ??PA ? /Sex: ??1995 (18 years), ? Female ? PROCEDURE: Anaerobic Culture ?SOURCE: Other ? COLLECTED: 05/26/2014 17:30 ?FREE TEXT SOURCE: Anterior Flank ? STARTED: 05/26/2014 17:41 ? FINAL REPORT ? Final Report ? Verified:2014 12:54 ? No anaerobic organisms isolated ? PRELIMINARY REPORT ? Preliminary Report ? Verified:2014 12:08 ? No anaerobic organisms isolated to date ? [facility] Specimen of unknown material (specimen) 05/26/2014 5:30 PM EST 05/26/2014 5:41 PM EST Comment:ANTERIOR FLANK Narrative Resulting Agency Comment Spec In Lab S Alek Burciaga MD MICROBIOLOGY - GENER AL ORDERABLES [facility] * Tissue culture (05/26/2014 5:30 PM EST) Tissue Culture ? Patient Name: TANA SHELTON ? Ordered By: Freddy BURCIAGA ? MR#: [id number] ?LOC: ??PA ? /Sex: ??1995 (18 years), [...] plates. ? Patient: TANA SHELTON ? MR#: [id number] ? SUSCEPTIBILITY RESULTS ? Coagulase negative Staphylococcus [...] (1) ? Gentamicin is not appropriate for [place]-therapy. ? (2) ? Penicillin resistant, Nafcillin susceptible [...] ? Ordered By: Freddy BURCIAGA ? MR#: [id number] ?LOC: ??PA ? /Sex: ??1995 (18 years), [...] ? Ordered By: Freddy BURCIAGA ? MR#: [id number] ?LOC: ??PA ? /Sex: ??1995 (18 years), [...] Burciaga MD MICROBIOLOGY - GENER AL ORDERABLES Performing Organization Address [facility] de Phone Number LINDA BASHIR * Antibody screen (05/26/2014 12:40 PM EST) Ab Screen Interp Negative LINDA KEMPIUM Expires at [id number] on: [id number] LINDA BASHIR Blood specimen (specimen) 05/26/2014 12:40 PM EST 05/26/2014 12:59 PM EST Narrative Resulting Agency Comment Spec In Lab S Alek Burciaga MD BLOOD BANK LAB ORDER MYRANDA Performing Organization Address [facility] de Phone Number LINDA BASHIR * ABO/Rh Typing (05/26/2014 12:40 PM EST) ABORH Type O Pos LINDA BASHIR Blood specimen (specimen) 05/26/2014 12:40 PM EST 05/26/2014 12:59 PM EST Narrative Resulting Agency Comment Spec In Lab S Alek Burciaga MD BLOOD BANK LAB ORDER MYRANDA Performing Organization Address [facility] de Phone Number LINDA BASHIR * CT [...] areas of greatestartifact. S Alek Burciaga MD [facility] CT ORDERABLES * Differential, Automated (05/26/2014 4:15 [...] Alek Burciaga MD HEMATOLOGY ORDERABLE S CERNER THOMENNIUM * (ABNORMAL) Hemogram (05/26/2014 4:15 AM EST) [...] intervals supplied above were not validated at [facility]. Results from pediatric patients should be interpreted [...] the following links into your internet browser. [email or web address] Blood specimen (specimen) 05/26/2014 4:15 AM EST 05/26/2014 4:35 AM EST Narrative Resulting Agency Comment Spec In Lab S Alek Burciaga MD CHEMISTRY ORDERABLES LINDA BASHIR * Place PICC Line: Contact Vascular Access Page [phone] (05/25/2014 4:01 PM EST) Narrative [place] [...] to the planned procedure. Hand Hygiene: The blender helper did perform hand hygiene prior to line insertion. Catheter type: PICC Lot number: [id number] Procedure Technique: Skin was prepped with chlorhexidine. [...] focal. COMPARISON: Scoliosis radiographs from 12/16/2011 FINDINGS: Automobile Spring Repairer views demonstrate severe rightward scoliotic deformity centered [...] No gross collections in the cervical spine. Automobile Spring Repairer coronal image 8 of series 8 demonstrates [...] inf,focal. COMPARISON: Scoliosis radiographs from 12/16/2011 FINDINGS: Automobile Spring Repairer views demonstrate severe rightward scoliotic deformity centered [...] abnormalities. No grosscollections in the cervical spine. Automobile Spring Repairer coronal image 8 of series 8 demonstrates [...] reviewed by the attending Freddy Burciaga MD [facility] MRI ORDERABLES * MRI thoracic spine without contrast (05/25/2014 1:26 PM EST) Anatomical Region Laterality Modality T-spine Magnetic Resonan ce 05/25/2014 1:26 PM EST Narrative 05/25/2014 4:10 PM EST See accession #[id number] for dictation of this study. This report was reviewed by Andrade Rebolledo MD at 05/25/2014 4:05 PM Film and interpretation reviewed by the attending Procedure Note Andrade Roth MD - 05/25/2014 See accession #[id number] for dictation of this study. This report was reviewed by Andrade Rebolledo MD at 05/25/2014 4:05 PM Film and interpretation reviewed by the attending Alek Sinha APRN [facility] MRI ORDERABLES * Differential, Automated (05/25/2014 5:00 [...] MD HEMATOLOGY ORDERABLE S Performing Organization Address City/[facility] Co de Phone Number CERALIN TOMASENNIUM * (ABNORMAL) Hemogram (05/25/2014 5:00 AM EST) [...] TOMASENNIUM * (ABNORMAL) Basic Metabolic Panel (non-fasting) (05/25/2014 5:00 AM EST) Glucose Lvl 87 60 - 199 mg/dL CERNER MILLENNIUM Comment:Diabetes: >=200 mg/d L plus symptoms BUN 6(L) 8 - 18 mg/dL CERNER MILLENNIUM Creatinine 0.27(L) 0.70 - 1.20 mg/dL CERNER MILLENNIUM Comment: Please note that the pediatric reference intervals supplied above were not validated at [facility]. Results from pediatric patients should be interpreted [...] the following links into your internet browser. [email or web address] Blood specimen (specimen) 05/25/2014 5:00 AM EST 05/25/2014 5:19 AM EST Narrative Resulting Agency Comment Spec In Lab S Alek Burciaga MD CHEMISTRY ORDERABLES [facility] * Differential, Automated (05/24/2014 12:42 PM EST) [...] Metabolic Panel (non-fasting) (05/24/2014 12:42 PM EST) [facility] Glucose Lvl 78 60 - 199 mg/dL CERNER MILLENNIUM Comment:Diabetes: >=200 mg/d L plus symptoms BUN 4(L) 8 - 18 mg/dL CERNER MILLENNIUM Comment:result rechecked-[facility] Creatinine 0.39(L) 0.70 - 1.20 mg/dL CERNER MILLENNIUM Comment: Please note that the pediatric reference intervals supplied above were not validated at [facility]. Results from pediatric patients should be interpreted [...] the following links into your internet browser. [email or web address] Blood specimen (specimen) 05/24/2014 12:42 PM EST 05/24/2014 12:42 PM EST Narrative Resulting Agency Comment Spec In Lab S Alek Burciaga MD CHEMISTRY ORDERABLES Performing Organization Address [facility] de Phone Number CERALIN TOMASENNIUM * Vancomycin, trough (05/24/2014 12:29 PM EST) [...] Organization Address [facility] Co de Phone Number CERALIN MILLENNIUM * (ABNORMAL) Electrolytes panel (05/23/2014 12:30 [...] Burciaga MD CHEMISTRY ORDERABLES Performing Organization Address City/State/[facility] Co de Phone Number CERNER MILLENNIUM [...] Burciaga MD CHEMISTRY ORDERABLES CERALIN TOMASENNIUM * (ABNORMAL) Phosphorus (05/22/2014 12:45 PM EST) Phosphorus 2.2(L) 2.5 - 4.5 mg/dL CERNER MILLENNIUM Blood specimen (specimen) Venous Draw / Unknown 05/22/2014 12:45 PM EST 05/22/2014 1:03 PM EST Narrative Resulting Agency Comment Spec In Lab Lucho Smith MD CHEMISTRY ORDERABLES Performing Organization Address [facility] de Phone Number [facility] * Magnesium (05/22/2014 12:45 PM EST) Magnesium 0.69 0.69 - 1.07 mmol/L [facility] Blood specimen (specimen) Venous Draw / Unknown 05/22/2014 12:45 PM EST 05/22/2014 1:03 PM EST Narrative Resulting Agency Comment Spec In Lab Lucho Smith MD CHEMISTRY ORDERABLES Performing Organization Address [facility] de Phone Number [facility] * Lipase (05/22/2014 12:45 PM EST) Pathologist [facility] Lipase 44 0 - 60 unit/L [facility] Blood specimen (specimen) 05/22/2014 12:45 PM EST 05/22/2014 1:03 PM EST Narrative Resulting Agency Comment Spec In Lab Lucho Smith MD CHEMISTRY ORDERABLES Performing Organization Address [facility] Co de Phone Number [facility] * Amylase (05/22/2014 12:45 PM EST) Pathologist [facility] Amylase 89 28 - 100 unit/L [facility] Blood specimen (specimen) 05/22/2014 12:45 PM EST 05/22/2014 1:03 PM EST Narrative Resulting Agency Comment Spec In Lab Lucho Smith MD CHEMISTRY ORDERABLES Performing Organization Address [facility] Co de Phone Number [facility] * (ABNORMAL) Comprehensive metabolic panel (non-fasting) (05/22/2014 12:45 PM EST) Glucose Lvl 81 60 - 199 mg/dL [facility] Comment:Diabetes: >=200 mg/d L plus symptoms BUN 2(L) 8 - 18 mg/dL [facility] Creatinine 0.31(L) 0.70 - 1.20 mg/dL CERNER MILLENNIUM Comment: Please note that the pediatric reference intervals supplied above were not validated at [facility]. Results from pediatric patients should be interpreted [...] the following links into your internet browser. [email or web address]/[email or web address] [email or web address]/[email or web address] Blood specimen (specimen) 05/22/2014 12:45 PM EST [...] MILLENNIUM Hemoglobin 11.6 11.2 - 15.7 gm/dL [facility] Hematocrit 35.0 34.0 - 45.0 % [facility] MCV 86.8 79.0 - 94.0 fL [facility] MCH 28.8 26.6 - 32.[address] [facility] MCHC 33.1 32.0 - 36.5 gm/dL [facility] Platelets 342 145 - 370 x10(3)/mcL [facility] RDWSD 45.2 35.0 - 46.0 fL [facility] RDWCV 14.2 10.9 - 14.4 % [facility] MPV 10.7 9.0 - 12.[address] [facility] Blood specimen (specimen) 05/22/2014 6:10 AM EST 05/22/2014 6:22 AM EST Narrative Resulting Agency Comment Spec In Lab S Alek Burciaga MD HEMATOLOGY ORDERABLE S Performing Organization Address City/[facility] Co de Phone Number [facility] * Vancomycin, trough (05/22/2014 6:10 AM EST) Vanc Trough 6.1 mg/L [facility] Comment: Therapeutic range for complicated infections such [...] Organization Address [facility] Co de Phone Number [facility] * (ABNORMAL) Basic Metabolic Panel (non-fasting) (05/22/2014 6:10 AM EST) Glucose Lvl 86 60 - 199 mg/dL CERNER MILLENNIUM Comment:Diabetes: >=200 mg/d L plus symptoms BUN 3(L) 8 - 18 mg/dL CERNER MILLENNIUM Creatinine 0.27(L) 0.70 - 1.20 mg/dL CERNER MILLENNIUM Comment: Please note that the pediatric reference intervals supplied above were not validated at [facility]. Results from pediatric patients should be interpreted [...] the following links into your internet browser. [email or web address]://[email or web address]/DHMCnkf Blood specimen (specimen) 05/22/2014 6:10 AM EST [...] intervals supplied above were not validated at [facility]. Results from pediatric patients should be interpreted [...] the following links into your internet browser. [email or web address] Blood specimen (specimen) 05/21/2014 4:23 AM EST 05/21/2014 4:38 AM EST Narrative Resulting Agency Comment Spec In Lab Freddy Burciaga MD CHEMISTRY ORDERABLES LINDA BASHIR * Tearer Press Clipping Culture (05/20/2014 10:01 PM EST) Tearer Press Clipping Culture ? Patient Name: TANA SHELTON ? Ordered By: Freddy BURCIAGA ? MR#: [id number] ?LOC: ??[place] ? /Sex: ??1995 (18 years), ? Female ? PROCEDURE: Tearer Press Clipping Culture ?SOURCE: Other ? COLLECTED: 05/20/2014 22:01 ? BODY SITE: Other ? STARTED: 05/20/2014 22:22 ?FREE TEXT SOURCE: retained baclafin pump tubing ? FINAL REPORT ? Final Report ? Verified:05/24/2014 10:28 ? Pseudomonas aeruginosa isolated ? Susceptibilities previously reported ? PRELIMINARY REPORT ? Preliminary Report ? Verified:05/23/2014 11:27 ? Pseudomonas aeruginosa isolated ? Susceptibilities previously reported ? CERNER MILLENNIUM Specimen of unknown material (specimen) TOPOGRAPHY UNKNOWN / Unknown 05/20/2014 10:01 PM EST 05/20/2014 10:21 PM EST Comment:RETAINED BACLAFIN PU MP TUBING Narrative Resulting Agency Comment Spec In Lab Freddy Burciaga MD MICROBIOLOGY - GENER AL ORDERABLES [facility] * Anaerobic Culture (05/20/2014 9:25 PM EST) Anaerobic Culture ? Patient Name: TANA SHELTON ? Ordered By: Freddy BURCIAGA ? MR#: [id number] ?LOC: ??[place] ? /Sex: ??1995 (18 years), [...] ? Ordered By: Freddy BURCIAGA ? MR#: [id number] ?LOC: ??[place] ? /Sex: ??1995 (18 years), [...] PRELIMINARY REPORT ? Preliminary Report ? Verified:05/23/19 09:49 ? Rare Pseudomonas aeruginosa ? SUSCEPTIBILITY RESULTS ? Pseudomonas aeruginosa ?PAT Interp ? Aztreonam ?S ? Ceftazidime ?S ? Ciprofloxacin ?S ? Gentamicin ? S ? Levofloxacin ? S ? Meropenem ?S ? Piperacillin/Tazo bactam ?S ? Tobramycin ? S ? Patient: CRISTO SHELTONLIE S ? MR#: [id number] ? S=Susceptible ??I=Intermediate ??R=Resistant ??NA=Not Applicable ? DDS=Dose dependent-suscept ible ??NS=Non-suscepti ble ? LINDA BASHIR Structure of back of trunk (body structure) 05/20/2014 9:25 PM EST 05/20/2014 10:12 PM EST Comment:LUMBAR WOUND CULTURE #2 Narrative Resulting Agency Comment Spec In Lab Authorizing Provider Result Bala Burciaga MD MICROBIOLOGY - GENER AL ORDERABLES LINDA BASHIR * Anaerobic Culture (05/20/2014 8:20 PM EST) Anaerobic Culture ? Patient Name: TANA SHELTON ? Ordered By: Freddy BURCIAGA ? MR#: [id number] ?LOC: ??[place] ? /Sex: ??1995 (18 years), [...] ? Ordered By: Freddy BURCIAGA ? MR#: [id number] ?LOC: ??PA ? /Sex: ??1995 (18 years), [...] species ? Susceptibilities previously reported ? LINDA TOMASENNIUM Structure of back of trunk (body structure) 05/20/2014 8:20 PM EST 05/20/2014 10:12 PM EST Comment:LUMBAR WOUND CULTURE Narrative Resulting Agency Comment Spec In Lab S Alek Burciaga MD MICROBIOLOGY - GENER AL ORDERABLES [facility] * Urine culture First Catch Urine (05/20/2014 6:46 PM EST) Urine Culture ? Patient Name: TANA SHELTON ? Ordered By: BELKIS LOUIE ? MR#: [id number] ?LOC: ??[place] ? /Sex: ??1995 (18 years), [...] Appearance UA Hazy(A) Clear CERNER MILLENNIUM Spec [place] UA 1.026 1.002 - 1.030 CERNER MILLENNIUM [...] Adina UA Rare(A) None /HPF CERNE R THOMENNIUM Urine specimen (specimen) 05/20/2014 6:46 PM EST 05/20/2014 6:55 PM EST Narrative Resulting Agency Comment Spec In Lab Belkis Louie MD URINE ORDERABLES Performing Organization Address [facility] Co de Phone Number [facility] * L-Lactate2 Whole Blood (05/20/2014 6:17 PM EST) Lactate WB 1.6 0.5 - 2.2 mmol/L LINDA BASHIR Blood specimen (specimen) 05/20/2014 6:17 PM EST 05/20/2014 6:17 PM EST Belkis Louie MD CHEMISTRY ORDERABLES Performing Organization Address [facility] de Phone Number [facility] * Blood culture (05/20/2014 6:00 PM EST) Blood Culture ? Patient Name: TANA SHELTON ? Ordered By: BELKIS LOUIE ? MR#: [id number] ?LOC: ??PA ? /Sex: ??1995 (18 years), ? Female ? PROCEDURE: Blood Culture ?SOURCE: Blood ? COLLECTED: 05/20/2014 18:00 ?FREE TEXT SOURCE: Left EJ ? STARTED: 05/20/2014 19:45 ? FINAL REPORT ? Final Report ? Verified:2014 23:01 ? No growth at 5 days. ? PRELIMINARY REPORT ? Preliminary Report ? Verified:2014 23:01 ? No growth at 4 days. ? CERNER THOMENNIUM Blood specimen (specimen) 05/20/2014 6:00 PM EST 05/20/2014 7:45 PM EST Comment:LEFT EJ Narrative Resulting Agency Comment Spec In Lab Belkis Louie MD MICROBIOLOGY - BLOOD ORDERABLES Performing Organization Address [facility] Phone Number LINDA KEMPIUM * Green Tube HOLD (05/20/2014 5:15 PM EST) Green Hold Sample in lab. LINDA KEMPIUM Blood specimen (specimen) Venous Draw / Unknown 05/20/2014 5:15 PM EST 05/20/2014 5:32 PM EST Belkis Louie MD CHEMISTRY ORDERABLES Performing Organization Address [facility] Co ca Phone Number LINDA KEMPIUM * Differential, Automated [...] Lab Belkis Louie MD HEMATOLOGY ORDERABLE S CERNER MILLENNIUM * (ABNORMAL) Hemogram (05/20/2014 5:15 [...] Lab Belkis Louie MD HEMATOLOGY ORDERABLE S [facility] * Blood culture (05/20/2014 5:15 PM EST) Blood Culture ? Patient Name: TANA SHELTON ? Ordered By: BELKIS LOUIE ? MR#: [id number] ?LOC: ??[place] ? /Sex: ??1995 (18 years), [...] MICROBIOLOGY - BLOOD ORDERABLES Performing Organization Address [facility] [facility] de Phone Number [facility] * Glucose, random (05/20/2014 5:15 PM EST) Glucose Lvl 81 60 - 199 mg/dL [facility] Comment:Diabetes: >=200 mg/d L plus symptoms Blood specimen (specimen) 05/20/2014 5:15 PM EST 05/20/2014 5:31 PM EST Narrative Resulting Agency Comment Spec In Lab Belkis Louie MD CHEMISTRY ORDERABLES Performing Organization Address [facility] Phone Number [facility] * (ABNORMAL) Creatinine (05/20/2014 5:15 PM EST) Creatinine 0.37(L) 0.70 - 1.20 mg/dL [facility] Comment: Please note that the pediatric reference intervals supplied above were not validated at [facility]. Results from pediatric patients should be interpreted in conjunction to the patient's age, height and muscle mass. Estimated GFR >60 >=60 [facility] Comment: This estimated GFR (eGFR) value was [...] the following links into your internet browser. [email or web address] Blood specimen (specimen) 05/20/2014 5:15 PM EST 05/20/2014 5:31 PM EST Narrative Resulting Agency Comment Spec In Lab Belkis Louie MD CHEMISTRY ORDERABLES Performing Organization Address [facility] de Phone Number CERNER MILLENNIUM * BUN (05/20/2014 5:15 PM EST) BUN 9 8 - 18 mg/dL CERNER MILLENNIUM Blood specimen (specimen) 05/20/2014 5:15 PM EST 05/20/2014 5:31 PM EST Narrative Resulting Agency Comment Spec In Lab Belkis Louie MD CHEMISTRY ORDERABLES Performing Organization Address City/[facility] Co de Phone Number LINDA TOMASENNIUM * (ABNORMAL) Electrolytes panel (05/20/2014 5:15 PM [...] Louie MD CHEMISTRY ORDERABLES Performing Organization Address City/[facility] Co de Phone Number LINDA BASHIR documented [...] Rectal, EVERY 4 HOURS PRN, Starting on 05/26/14 [...] on 05/21/14 at 2100, Until Discontinued, Routine Given 06/01/2014 [...] Nely Boss, Indication for (Active or Suspected): REGISTERED NURSE OBSTETRICS/Meningitis Given 06/02/2014 5:57 AM EST 2 g 100 mL/hr Given 06/01/2014 10:41 PM EST 2 g 100 mL/hr Given 06/01/2014 2:10 PM EST 2 g 100 mL/hr cefTRIAXone (ROCEPHIN) 1g in dextrose 5% 50mL 1 g, Intravenous, ONCE, 1 dose, On 05/20/14 at 2315, Administer over 30 Minutes, Indication for (Active or Suspected): REGISTERED NURSE OBSTETRICS/Meningitis Given 05/21/2014 1:32 AM EST 1 g 100 mL/hr cefTRIAXone (ROCEPHIN) 2g in dextrose 5% 50mL 2,000 mg (2 g), Intravenous, EVERY 12 HOURS, First dose on 05/20/14 at 1000, Until Discontinued, Administer over 30 Minutes, Indication for (Active or Suspected): for REGISTERED NURSE OBSTETRICS/Meningitis Given 05/22/2014 10:59 AM EST 2,000 mg [...] Intravenous, ONCE PRN, 1 dose, Starting on Thu05/21/14 at 1546, Until Thu05/21/14 at 1545, agitiation/muscle spasm, STAT Given 05/21/2014 3:45 PM EST 2 mg diphenhydrAMINE (BENADRYL) injection 25 mg 25 mg, Intravenous, EVERY 6 HOURS PRN, Starting on Thu05/23/14 at 1357, Until Thu06/02/14 at 1832, Itching, [...] Starting on Dianne 05/25/14 at 1657, Until 06/02/14 at 1832, Line Care, Routine Given 05/29/2014 [...] 30 Minutes, Indication for (Active or Suspected): REGISTERED NURSE OBSTETRICS/Meningitis Given 05/22/2014 5:40 AM EST 500 mg [...] Intravenous, EVERY 8 HOURS PRN, Starting on Thu05/22/14 at 0936, Until Thu06/02/14 at 1832, Nausea, [...] Intravenous, EVERY 6 HOURS, First dose on 05/22/14 at 1530, Until Discontinued, Administer over 4 Hours, Indication for (Active or Suspected): GI/Intra-abdominal Given 05/23/2014 6:23 AM EST 3.375 g 12.5 mL/hr Given 05/23/2014 12:21 AM EST 3.375 g 12.5 mL/hr Given 05/22/2014 6:29 PM EST 3.375 g 12.5 mL/hr polyethylene glycol (MIRALAX) packet 17 g 17 g, Oral, DAILY, First dose on 05/21/14 at 0900, Until Discontinued Given 06/01/2014 10:03 [...] 500 mg, Oral, ONCE, 1 dose, On 05/22/14 at 1415, Dissolve tablets in 6-8 oz of water; for best results, soak tablets in water for 2-5 minutes, then stir and give to patient., Routine Given 05/22/2014 2:52 PM EST 500 mg propofol (DIPRIVAN) infusion 50 mcg/kg/min ? 47.6 kg (14.28 mL/hr, rounded to 14.3 mL/hr), Intravenous, CONTINUOUS, Starting on 05/20/14 at 2315, Until 05/21/14 at 0014, PACU Recovery, Routine Continued Bag [...] Nely Boss, Indication for (Active or Suspected): REGISTERED NURSE OBSTETRICS/Meningitis 0616 (Given - Provider: Linsey Mcintyre RN)1446 [...] Indication for (Active or Suspected): Skin/Skin Structure 08 (Given - Provider: Linsey Mcintyre RN)2050 (Given [...] Oral, 2 TIMES DAILY, First dose on 05/31/14 at 1230, Until Discontinued, Routine 1242 (Given [...] Patino RN) 0120 (Given - Provider: Margot Monzon, EUNICE)0836 (Given - Provider: Hedy Vazquez RN) Continuous [...] Routine documented in this encounter Care Teams Sheriff'S Sergeant Relationship Specialty Start Date End Date Naina Lindsey MD [address] [place] [address] PCP - General 03/19/10 08/25/16 documented as of this encounter
--- OUTSIDE RECORDS SUMMARY | 2023-11-16 17:01 | XMS_ITS | Encounter Summary ---
Author Organization Formerly [facility] [place] [address] Care Team Providers Care Chocolate Temperer Name Role Phone Naina Lindsey MD Primary Care Provider [phone] Reason for Visit * Reason Comments Post-op Problem Encounter Details Date Type Department Care Team (Late st Contact Info) Description 05/26/2014 4:30 PM EST - 05/26/2014 7:03 PM EST [place] [address] Freddy Burciaga MD [facility] [place] [address] @I & D, OPEN, DEEP ABSCESS, LUMBAR, [...] Routine, Hospital Performed Vendor / contact information: [facility] Patient location post discharge: home Service requested: IV abx Start date: 05/26/2014 Responsible MD post discharge contact info: WILL Smith (Edit) Referral to Home Health - at DISCHARGE Routine, Clinic Performed Agency name and contact information: [facility] Patient location post discharge: home What services are requested: Registered Nurse, Home Health Aide, Physical Therapy, Occupational Therapy Start date: 05/26/2014 Responsible MD post discharge contact info: PCP PATIENT'S LOCATION: Tana Shelton [address] [place] [phone] (home) In discussion with the attending physician, it is certified that this patient is under their care and that they, or a Nurse Practitioner,Clinical Nurse specialist or Physician Nutrient Management Specialist who is working directly with them, [...] Continue with therapies OT: Continue with therapies MATLAB DEVELOPER: Continue support HOME HEALTH CARE AGENCY: [facility]. PHONE: [phone] FAX: [phone] Start of care: 05/26/14 Please note that any additional orders needs or changes will need to be obtained from this patient's PCP: MD Coby BRAGG DR / [facility] [id number] All VNA agencies which cover the area of patient's residence have been reviewed, either verbally or in writing, and patient/family have chosen the home health care agency noted Emergency contact: After hours and weekends, call the [facility] power shovel operator helper at and ask them to page the neurosurgery resident financial sales professional. documented in this encounter Medications at Time [...] (AVS) and given to the patient or retail representative. 6) If VNA was ordered, I [...] 0.9% 50 mL Mini-Bag Plus 2 g TlkzyzkitarH2O ??? baclofen 10 mg Oral Nightly ??? levonorgestrel-ethinyl estradiol 1 tablet Oral Daily ??? polyethylene glycol 17 g Oral Daily ??? sodium chloride 0.9 % 5 mL Intravenous BID ??? diaZEPam 5 mg Oral BID Continuous Infusions: ??? sodium chloride 0.9% with potassium chloride 20 mEq 50 mL/hr (06/01/14 0085) PRN Meds:acetaminophen OR acetaminophen, flu vaccine (36 [...] elevated HR this am S: Kenneth Rocco. [facility], [id number] singing ABCs and counting along with stretches [...] pt to d/chome with support and continued PT/OT/SAMPLE SEWER/VNA services. Staff communication/Mobility Recommendations: Pt. Would benefit [...] timed interventions: 30 minutes for TherEx-F Pager: [phone] Mary Joe, OT Occupational Therapy Rehabilitation Department * Isra Perez RN - 06/01/2014 2:43 PM EST Patient Name: Tana Shelton Patient Age: 18 y.o. Birthdate: 1995 Admit date: 05/20/2014 Attending Physician: Jamaal Samuel MD OFFICE OF CARE MANAGEMENT Farhana Perez RN Pager: [phone] CLINICAL ACOUSTICAL TILE PATTERNMAKER PROGRESS NOTE e-DH reviewed. Report received from DEMI Sanchez. Patient continues to require acute inpatient care for the treatment of infection. Patient remains on triple abx while awaiting final cultures. [facility] and [facility] have been referred to for discharge. Met with patient's mother at bedside. Mom had multiple questions the other day regarding equipment for home. Mattress for hospital bed was ordered and delivered to home from [facility]. Tomasa Sling was ordered and is to be delivered by [facility] when it ships to [facility] warehouse. TLSO brace to be fitted by [facility]. Mom also inquired about a new motorized wheelchair. Called [facility] in [place] to see if patient would qualify, left message with Oliver- the rehab therapist for [facility]. Patient will need a assessment [...] 0.9% 50 mL Mini-Bag Plus 2 g PxumwmfrjmwQ0O ??? baclofen 10 mg Oral Nightly ??? [...] has recovered and I can review the [facility] records and films * Natividad [...] family in a single story home in [place], [place]. Pt's mother reports that there is no stair requirement, and that she has all necessary equipment. Stairs: 0 without a rail to enter Baseline Mobility: Completely dependent for all care, home nursing VNA services 3x/week, school-based PT/OT/SAMPLE SEWER, pt due to receive a communication device [...] than in previous treatment session, counting withthis freelance copywriter during stretching Objective: Patient seen for [...] internal rotators, adductors ?? Pt helped this freelance copywriter with opposite UE when performing stretching [...] session, playing with toys, playfully tricking this freelance copywriter when counting during passive stretching, and [...] exercise Natividad Esqueda PT, DPT 05/31/2014 Pager: [phone] Physical Therapy Inpatient Rehabilitation Department * Nathalie [...] OF CARE MANAGEMENT Farhana Perez RN Pager: [phone] CLINICAL ACOUSTICAL TILE PATTERNMAKER PROGRESS NOTE e-DH reviewed. Report received from DEMI Sanchez. Patient continues to require acute inpatient care for the treatment of infection. Patient is on triple abx. Patient needs a new mattress for her hospital bed at home. Patient's mother would like order placed with [employer]. Order pended and booking sent via [employer] Plan: CRC will continue to follow for [...] pt to d/chome with support and continued PT/OT/SAMPLE SEWER/VNA services. Staff communication/Mobility Recommendations: Pt. Would benefit [...] timed interventions: 45 minutes for TherEx Pager: [phone] Mary Joe OT Occupational Therapy Rehabilitation Department [...] 0.9% 50 mL Mini-Bag Plus 2 g YojcuawvrgbB4Z ??? baclofen 10 mg Oral Nightly ??? [...] PPx - ID c/s Associated attestation - Jaamal Samuel MD - 05/30/2014 9:02 AM EST [...] OF CARE MANAGEMENT Farhana Perez RN Pager: [phone] CLINICAL ACOUSTICAL TILE PATTERNMAKER PROGRESS NOTE e-DH reviewed. Report received from [...] as pt becomes available. Please contact this freelance copywriter with any further questions or concerns. Thank you. Pager: [phone] Mary Joe OTR/L Occupational Therapy Inpatient Rehabilitation [...] family in a single story home in [place], [place]. Pt's mother reports that there is no stair requirement, and that she has all necessary equipment. Stairs: 0 without a rail to enter Baseline Mobility: Completely dependent for all care, home nursing VNA services 3x/week, school-based PT/OT/SAMPLE SEWER, pt due to receive a communication device [...] pt very smiley today, counting with this freelance copywriter during stretching, showing off her favorite [...] exercise Natividad Esqueda PT, DPT 05/29/2014 Pager: [phone] Physical Therapy Inpatient Rehabilitation Department * Wai [...] not hesitate to page us on pager [phone] with further questions or concerns. Patient discussed with Dr. Wai Crabtree. Dimple Messina MD Fellow, Infectious Disease 05/29/2014 ID Staff: Discussed with Dr. Messina. Agree with current regimen. This will be a very difficult regimen at [facility] some further discussion is needed. We are [...] 0.9% 50 mL Mini-Bag Plus 2 g IulporxpfkhC6T ??? baclofen 10 mg Oral Nightly ??? [...] 0.9% 50 mL Mini-Bag Plus 2 g UdbxifatymrI0U ??? baclofen 10 mg Oral Nightly ??? [...] CRC received call from EUNICE Hair, from [place], [place] or Asking for status as they will follow her after discharge for IV antibiotic treatment. She will need an OPAT order faxed to above agency when she is ready for discharge as well as administration teaching for home. When ready for discharge, [facility] PHONE: [phone] FAX: [phone] will also need to be updated. Referral had been made by previous CRC. Covering pager #[phone] for pager #[phone]. * Darius Maguire T - 05/27/2014 8:23 [...] 0.9% 50 mL Mini-Bag Plus 2 g DbofwsbhgfgV3C ??? baclofen 10 mg Oral Nightly ??? [...] clean and dry Wound without fluctuance [address] Assessment/Plan:: 18 y.o. female s/p removal [...] family in a single story home in [place], [place]. Pt's mother reports that there is no stair requirement, and that she has all necessary equipment. Stairs: 0 without a rail to enter Baseline Mobility: Completely dependent for all care, home nursing VNA services 3x/week, school-based PT/OT/SAMPLE SEWER, pt due to receive a communication device [...] exercise Natividad Esqueda PT, DPT 05/26/2014 Pager: [phone] Physical Therapy Inpatient Rehabilitation Department * Freddy Burciaga MD - 05/26/2014 6:27 AM EST Neurosurgery - Inpatient Progress Note ID: Tana Shelton, 18 y.o. female s/p removal of retained hardware, washout of infection 05/20 POD 6 Interval Hx: -ALEKSANDRA -Neurologically stable Objective: Medications: Scheduled Meds: ??? cefTAZidime (FORTAZ) 2g vial attach to sodium chloride 0.9% 50 mL Mini-Bag Plus 2 g BdlrfputemjM6V ??? baclofen 10 mg Oral Nightly ??? [...] (05/26) or when appropriate. Please page this freelance copywriter if you have any questions, thank you. Natividad Esqueda PT Pager #[phone] Physical Therapy Inpatient Rehabilitation * Mary Joe, [...] pt to d/chome with support and continued PT/OT/SAMPLE SEWER/VNA services. Spoke to CRC this about thoracic [...] timed interventions: 27 minutes for TherEx Pager: [phone] Mary Joe OT Occupational Therapy Rehabilitation Department [...] 0.9% 50 mL Mini-Bag Plus 2 g RzoiakqbxzzZ3Q ??? baclofen 10 mg Oral Nightly ??? [...] of Care Management Farhana Perez RN Pager: [phone] Clinical Dental Equipment Technician Home IV Antibiotic Therapy Referral Note. [...] Home Health Agency: Patient requested referral to [facility]. PHONE: [phone] FAX: [phone]. Referrals sent via edischarge. Home Infusion Vendor: Patient requested referral to [place], [place] Tel: or Fax: . Referrals sent [...] 0.9% 50 mL Mini-Bag Plus 2 g AtkiiqesshjT1O ??? baclofen 10 mg Oral Nightly ??? [...] 0.9% 50 mL Mini-Bag Plus 2 g KwmdzyqfdngU8V ??? baclofen 10 mg Oral Nightly ??? [...] PM EST Office of Care Management Clinical Dental Equipment Technician Patient Name: Tana Shelton : 1995, [...] None on File (x) HEALTH /PRESCRIPTION COVERAGE: [place] [facility] CURRENT HOME/COMMUNITY SERVICES/EQUIPMENT: DME: [facility] bed, wheelchair, tomasa lift, shower chair. Home Health Agency: [facility] PRIMARY CARE PHYSICIAN: NAINA LINDSEY MD [phone] POTENTIAL DISCHARGE NEEDS: Resume vna visits. Mother stated that she has [facility]na - RN and Aide currently. Waiting to confirm this and pt needs. Might need home IV antibx. TRANSPORTATION @ D/C: family PLAN: CRC will continue to monitor progress, follow for continuity of care and assist with discharge planning while hospitalized Lesly Jesus RN Office of Care Management Clinical Dental Equipment Technician Covering for Farhana Chris [phone] Pager [phone] * Yandy Dasilva, PharmD - 05/22/2014 9:46 AM EST Clinical Pharmacist Note-Vanc Tana S Dirk [id number] 1995 Tana Barlowrd is a 18 y.o. [...] have. Alternately, during off-hours you may call [phone] to contact a pharmacist. Yandy Dasilva PHARMBenjamin Pager [phone] * Freddy Burciaga MD - 05/22/2014 6:59 [...] Clinically does not seem to be of GEOGRAPHY FACULTY MEMBER origin. Continue triple antibiotics. ID consult. Cultures [...] given to Diana RN Peds. Transferred to [place] [address] with transport services, RN + family members. Please call Anurag ICU-RN at [phone] with regards to any questions post transfer. [...] mcL Appearance UA Hazy (*) Clear Spec [place] UA 1.026 1.002 - 1.030 Color UA [...] TANA SHELTON Ordered By: Freddy BURCIAGA MR#: [id number] LOC: OR /Sex: 1995 (18 years), Female PROCEDURE: Tissue Culture SOURCE: Back COLLECTED: 05/20/2014 20:20 FREE TEXT SOURCE: Lumbar Wound Culture STARTED: 05/20/2014 22:13 STAINS / PREPARATIONS Gram Stain Report Verified:05/20/2014 22:28 Few White Blood Cells seen No microorganisms seen. TISSUE CULTURE Result Value Ref Range Tissue Culture Value: Patient Name: TANA SHELTON Ordered By: EVITAFreddy IRENE MR#: [id number] LOC: OR /Sex: 1995 (18 years), Female [...] II initiated 0040: Report given to Jenn SENIOR IT SPECIALIST info reviewed/questions answered, pt ready for transfer [...] to the planned procedure. Hand Hygiene: The radiologic tech did perform hand hygiene prior to line insertion. Catheter type: PICC Lot number: [id number] Procedure Technique: Skin was prepped with chlorhexidine. [...] warm and was flushed. They called the financial sales professional neurosurgeon, who advised that they come to [...] by YAS OLIVER [facility] MAIN OR ??? Apply of hip casts, two legs 08/15/2010 CAST APPLICATION, HIP SPICA, BOTH LEGS performed by YAS OLIVER at [facility] MAIN OR ??? Removal deep implant 08/15/2010 REMOVAL IMPLANT, DEEP, BRUNO performed by YAS OLIVER at [facility] MAIN OR ??? Osteotomy femur shaft/supracondy 08/15/2010 ??OSTEOTOMY, FEMUR SHAFT OR SUPRACONDYLAR W/O FIXATION performed by YAS OLIVER at [facility] MAIN OR ??? Remove spinal canal catheter N/A 05/11/2014 REMOVAL OF INTRATHECAL OR EPIDURAL CATHETER performed by Jamaal Samuel MD at [facility] MAIN OR ??? Remove infusn device/pump N/A 05/11/2014 REMOVAL OF SPINE INFUSION PUMP performed by Jamaal Samuel MD at [facility] MAIN OR Medications: No current [...] stepfather Tobacco exposure:No Day care/year in school: [employer] Physical Exam: Vitals: Patient Vitals for [...] mcL Appearance UA Hazy (*) Clear Spec [place] UA 1.026 1.002 - 1.030 Color UA [...] pump in 2007 at [facility]. Mother feels that the pump [...] Size requested: twin bed Vendor Name/Contact information: [place] [facility] New (Edit) Referral for Outpatient Antibiotics Routine, Hospital Performed Vendor / contact information: [facility] Patient location post discharge: home Service requested: IV abx Start date: 05/26/2014 Responsible MD post discharge contact info: PCP New (Edit) Referral to Home Health - at DISCHARGE Routine, Clinic Performed Agency name and contact information: [facility] Patient location post discharge: home What services are requested: Registered Nurse, Home Health Aide, Physical Therapy, Occupational Therapy Start date: 06/06/2014 Responsible MD post discharge contact info: PCP PATIENT'S LOCATION: Tana Shelton [address] [place] [phone] (home) In discussion with the attending physician, it is certified that this patient is under their care and that they, or a Nurse Practitioner,Clinical Nurse specialist or Physician Nutrient Management Specialist who is working directly with them, [...] Continue with therapies OT: Continue with therapies MATLAB DEVELOPER: Continue support HOME HEALTH CARE AGENCY: [facility] PHONE: [phone] FAX: [phone] Start of care: 05/26/14 Please note that any additional orders needs or changes will need to be obtained from this patient's PCP: MD Coby BRAGG DR / [place] [address] All VNA agencies which cover the area of patient's residence have been reviewed, either verbally or in writing, and patient/family have chosen the home health care agency noted Emergency contact: After hours and weekends, call the [facility] power shovel operator helper at and ask them to page the neurosurgery resident financial sales professional. * Plan of Care - Margot Monzon [...] yo. Supervision: Continuous; Moraima. Fannie at home director talent management at bedside this morning ; Mom arrived [...] (Interventions Implemented as Appropriate) 05/25/14 0527 05/26/14 6415 Plan of Care Review Plan of Care [...] AM EST Clinical Pharmacist Note-Vancomycin Tana Shelton [id number] 1995 Tana Shelton is a 18 y.o. [...] contact a pharmacist. Elmer Tobin, [place] Pager [phone] * Plan of Care - Leana Hicks [...] Outcome: Ongoing (Interventions Implemented as Appropriate) 05/27/14 4089 Infection, Risk/Actual (Adult, Obstetrics) Infection Prevention/Resolution/Control making progress toward outcome Problem: Fall/Trauma/Injury Risk (Pediatric) Goal: Identify Signs and Symptoms and Related Risk Factors Signs and symptoms and related risk factors are identified upon initiation of Human Response Clinical Practice Guideline (CPG) Outcome: Outcome (s) achieved Date Met: 05/27/14 05/22/14202905/25/14 411 Fall/Trauma/Injury Risk Personal Related Risk Factors (Fall/Trauma/Injury [...] Burciaga MD - 05/26/2014 4:52 PM EST [facility] Operative Note Patient Name: Tana Shelton : [id number] MR#: [id number] Case Date: 05/26/2014 Surgeon: Surgeon(s) and Role: [...] (Interventions Implemented as Appropriate) 05/22/14 0634 05/24/14 3494 Discharge Needs Assessment Concerns to be Addressed [...] Health Knowledge, Opportunity for Enhanced (Adult, NICU, [place], Obstetrics, Pediatric) Goal: Identify Signs and Symptoms and Related Risk Factors Signs and symptoms and related risk factors are identified upon initiation of Human Response Clinical Practice Guideline (CPG) Outcome: Ongoing (Interventions Implemented as Appropriate) * Plan of Care - Carisa Godwin RN - 05/25/2014 8:02 AM EST Problem: Health Knowledge, Opportunity for Enhanced (Adult, NICU, [place], Obstetrics, Pediatric) Goal: Knowledgeable about Health Subject/Topic Patient will demonstrate the desired outcomes. Outcome: Outcome (s) achieved Date Met: 05/25/14 05/25/14 0802 Health Knowledge, Opportunity for Enhanced (Adult, NICU, [place], Obstetrics, Pediatric) Knowledgeable about Health Subject/Topic achieves [...] bedside;lighting adjusted for task/safety;low bed;environmental modification 05/25/14 0556 Musculoskeletal Interventions Activity/Level of Assistance -- Self-Care [...] Outcome: Ongoing (Interventions Implemented as Appropriate) 05/24/14 5701 Plan of Care Review Plan of Care [...] FEMORAL HEAD, BILATERAL performed by YAS OLIVER [facility] OR ??? Apply of hip casts, two legs 08/15/2010 CAST APPLICATION, HIP SPICA, BOTH LEGS performed by YAS OLIVER at [facility] OR ??? Removal deep implant 08/15/2010 REMOVAL IMPLANT, DEEP, BRUNO performed by YAS OLIVER at [facility] OR ??? Osteotomy femur shaft/supracondy 08/15/2010 ??OSTEOTOMY, FEMUR SHAFT OR SUPRACONDYLAR W/O FIXATION performed by YAS OLIVER at [facility] OR ??? Remove spinal canal catheter N/A 05/11/2014 REMOVAL OF INTRATHECAL OR EPIDURAL CATHETER performed by Jamaal Samuel MD at [facility] OR ??? Remove infusn device/pump N/A 05/11/2014 REMOVAL OF SPINE INFUSION PUMP performed by Jamaal Samuel MD at [facility] OR ? ? I&d, post spine, lumb/sacr/lumbosac N/A 05/20/2014 @I & D, OPEN, DEEP ABSCESS, LUMBAR, SACRAL, LUMBOSACRAL performed by Freddy Burciaga MD at [facility] OR ??? Repr, dural/csf leak, not req laminectomy N/A 05/20/2014 @REPAIR DURAL\CSF LEAK,NOT REQUIRING LAMINECTOMY performed by Freddy Burciaga MD at [facility] OR Social and Developmental History: Patient lives with her family in a single level home in [place], [place]. Pt's mother reports that their home [...] has an older sister who lives in [place] and 3 younger brothers. She likes to [...] RN and mom assist. Feeding: per mom: LEVELOCK assist for use of utensils; not observed [...] to d/c home with support and continued PT/OT/SAMPLE SEWER/VNA services. Spoke with CRC about consultfor new [...] you for this occupational therapy consult. Pager: [phone] Mary Joe OT 05/24/2014 Occupational Therapy Rehabilitation [...] FEMORAL HEAD, BILATERAL performed by YAS OLIVER [facility] OR ??? Apply of hip casts, two legs 08/15/2010 CAST APPLICATION, HIP SPICA, BOTH LEGS performed by YAS OLIVER at [facility] OR ??? Removal deep implant 08/15/2010 REMOVAL IMPLANT, DEEP, BRUNO performed by YAS OLIVER at [facility] OR ??? Osteotomy femur shaft/supracondy 08/15/2010 ??OSTEOTOMY, FEMUR SHAFT OR SUPRACONDYLAR W/O FIXATION performed by YAS OLIVER at [facility] OR ??? Remove spinal canal catheter N/A 05/11/2014 REMOVAL OF INTRATHECAL OR EPIDURAL CATHETER performed by Jamaal Samuel MD at [facility] OR ??? Remove infusn device/pump N/A 05/11/2014 REMOVAL OF SPINE INFUSION PUMP performed by Jamaal Samuel MD at [facility] OR ? ? I&d, post spine, lumb/sacr/lumbosac N/A 05/20/2014 @I & D, OPEN, DEEP ABSCESS, LUMBAR, SACRAL, LUMBOSACRAL performed by Freddy Burciaga MD at [facility] OR ??? Repr, dural/csf leak, not req laminectomy N/A 05/20/2014 @REPAIR DURAL\CSF LEAK,NOT REQUIRING LAMINECTOMY performed by Freddy Burciaga MD at [facility] MAIN OR Social History: Patient lives with her family in a single story home in [place], [place]. Pt's mother reports that there is no stair requirement, and that she has all necessary equipment. Stairs: 0 without a rail to enter Baseline Mobility: Completely dependent for all care, home nursing VNA services 3x/week, school-based PT/OT/SAMPLE SEWER, pt due to receive a communication device [...] appropriate and joins in counting with this freelance copywriter while stretching Objective: Pt seen for [...] minutes Natividad Esqueda PT, DPT 05/24/2014 Pager: [phone] Physical Therapy Inpatient Rehabilitation Department * Plan [...] based on it's ability to penetrate the GEOGRAPHY FACULTY MEMBER. We need todiscuss whether to pursue an [...] to 40 mEq. One dose of IV mEq administered per orders. Re-check of K [...] placement of baclofen pump in 2007 in [place]. Due to lack of efficacy the baclofen [...] and Lipase were normal. Per her daycare live games dealer, may be related to administration of oxycodone as this has been issue in the past. Cannotexclude component of baclofen withdrawal, but less likely. No current concern for acute GEOGRAPHY FACULTY MEMBER process. - Serial exams. Ensure daily BMs [...] although it may not have the best GEOGRAPHY FACULTY MEMBER penetration unless meninges are actually inflamed. - [...] PREVENTION: Assistance: Full assist, mom at bedside. clerical aide teacher will be coming in today to [...] Burciaga MD - 05/21/2014 11:53 AM EST [facility] Operative Note Patient Name: Tana Shelton : [id number] MR#: [id number] Case Date: 05/20/2014 - 05/21/2014 Surgeon: Surgeon(s) [...] FEMORAL HEAD, BILATERAL performed by AYS OLIVER [facility] MAIN OR ??? Apply of hip casts, two legs 08/15/2010 CAST APPLICATION, HIP SPICA, BOTH LEGS performed by YAS OLIVER at [facility] MAIN OR ??? Removal deep implant 08/15/2010 REMOVAL IMPLANT, DEEP, BRUNO performed by YAS OLIVER at [facility] MAIN OR ??? Osteotomy femur shaft/supracondy 08/15/2010 ??OSTEOTOMY, FEMUR SHAFT OR SUPRACONDYLAR W/O FIXATION performed by YAS OLIVER at [facility] MAIN OR ??? Remove spinal canal catheter N/A 05/11/2014 REMOVAL OF INTRATHECAL OR EPIDURAL CATHETER performed by Jamaal Samuel MD at [facility] MAIN OR ??? Remove infusn device/pump N/A 05/11/2014 REMOVAL OF SPINE INFUSION PUMP performed by Jamaal Samuel MD at [facility] MAIN OR No family history on [...] mcL Appearance UA Hazy (*) Clear Spec [place] UA 1.026 1.002 - 1.030 Color UA [...] TANA SHELTON Ordered By: Freddy BURCIAGA MR#: [id number] LOC: OR /Sex: 1995 (18 years), Female PROCEDURE: Tissue Culture SOURCE: Back COLLECTED: 05/20/2014 20:20 FREE TEXT SOURCE: Lumbar Wound Culture STARTED: 05/20/2014 22:13 STAINS / PREPARATIONS Gram Stain Report Verified:05/20/2014 22:28 Few White Blood Cells seen No microorganisms seen. TISSUE CULTURE Result Value Range Tissue Culture Value: Patient Name: TANA SHELTON Ordered By: Freddy BURCIAGA MR#: [id number] LOC: OR /Sex: 1995 (18 years), Female [...] EDT TH Visit (TeleHealth) [place] [address] Lilli Joy APRN [facility] [place] [address] 12/03/2023 12:30 PM EDT Office [place] [address] Hollie Ambriz MD [facility] [place] [address] 12/03/2023 2:30 PM [place] [address] Andrade Melvin MD [facility] [place] [address] Pending Results Name Type Priority Associated Diagnoses [...] 05/26/2014 12:40 PM EST TYPE AND SCREEN (MC/CGP/ROSAS) STAT 05/26/2014 12:[address] LUMBAR [...] REQUIRING LAMINECTOMY Routine 05/20/2014 10:22 PM EST DISPATCHER [place] CULTURE Routine 5 10:01 PM EST ANAEROBIC [...] 5:55 AM EST) Neutrophils % 64.5 % LINDA MILLENNIUM Neutr Abs (ANC) 4.75 1.50 - [...] intervals supplied above were not validated at [facility]. Results from pediatric patients should be interpreted [...] the following links into your internet browser. [email or web address] Blood specimen (specimen) 06/02/2014 5:55 AM EST 06/02/2014 6:09 AM EST Narrative Resulting Agency Comment Spec In Lab S Alek Burciaga MD CHEMISTRY ORDERABLES Performing Organization Address [facility] Co de Phone Number [facility] [employer] * (ABNORMAL) Sedimentation rate (06/01/2014 12:40 PM EST) Sed Rate 46(H) 0 - 20 mm/hr [facility] Blood specimen (specimen) Venous Draw / Unknown 06/01/2014 12:40 PM EST 06/01/2014 12:48 PM EST Narrative Resulting Agency Comment Spec In Lab S Alek Burciaga MD HEMATOLOGY ORDERABLE S Performing Organization Address [facility] Phone Number [facility] [employer] * High Sensitivity CRP (06/01/2014 12:40 PM EST) CRP High Sens 15.4 mg/L [facility] [employer] Comment: Interpretations: 1) For accurate cardiac risk [...] Burciaga MD CHEMISTRY ORDERABLES Performing Organization Address City/State/[facility] Co de Phone Number CERNER MILLENNIUM * Differential, Automated (06/01/2014 12:40 [...] MD HEMATOLOGY ORDERABLE S Performing Organization Address City/[facility] Co de Phone Number LINDA TOMASENNIUM * (ABNORMAL) Hemogram (06/01/2014 12:40 PM EST) [facility] WBC 7.4 4.0 - 10.0 x10(3)/mcL CERNER [...] S Performing Organization Address [facility] Co de Phone Number LINDA BASHIR * (ABNORMAL) Basic Metabolic Panel (non-fasting) (06/01/2014 12:40 PM EST) [facility] Glucose Lvl 95 60 - 199 mg/dL CERNER MILLENNIUM Comment:Diabetes: >=200 mg/d L plus symptoms BUN 4(L) 8 - 18 mg/dL CERNER MILLENNIUM Creatinine 0.38(L) 0.70 - 1.20 mg/dL CERNER MILLENNIUM Comment: Please note that the pediatric reference intervals supplied above were not validated at [facility]. Results from pediatric patients should be interpreted [...] the following links into your internet browser. [email or web address] Blood specimen (specimen) 06/01/2014 12:40 PM EST [...] intervals supplied above were not validated at [facility]. Results from pediatric patients should be interpreted [...] the following links into your internet browser. [email or web address] Blood specimen (specimen) 05/30/2014 6:50 AM EST [...] S Alek Burciaga MD HEMATOLOGY ORDERABLE S [facility] * (ABNORMAL) Basic Metabolic Panel (non-fasting) (05/29/2014 7:13 AM EST) Glucose Lvl 83 60 - 199 mg/dL CERNER MILLENNIUM Comment:Diabetes: >=200 mg/d L plus symptoms BUN 5(L) 8 - 18 mg/dL CERNER MILLENNIUM Creatinine 0.31(L) 0.70 - 1.20 mg/dL CERNER MILLENNIUM Comment: Please note that the pediatric reference intervals supplied above were not validated at [facility]. Results from pediatric patients should be interpreted [...] the following links into your internet browser. [email or web address] Blood specimen (specimen) 05/29/2014 7:13 AM EST [...] Alek Burciaga MD HEMATOLOGY ORDERABLE S LINDA TOMASENNIUM * (ABNORMAL) Hemogram (05/28/2014 9:00 AM [...] Alek Burciaga MD HEMATOLOGY ORDERABLE S LINDA KEMPIUM * Vancomycin, trough (05/28/2014 9:00 AM EST) [...] intervals supplied above were not validated at [facility]. Results from pediatric patients should be interpreted [...] the following links into your internet browser. [email or web address] Blood specimen (specimen) 05/28/2014 9:00 AM EST [...] ORDERABLE S CERALIN MILLENNIUM * (ABNORMAL) Hemogram (05/27/2014 5:30 AM [...] intervals supplied above were not validated at [facility]. Results from pediatric patients should be interpreted [...] the following links into your internet browser. [email or web address] Blood specimen (specimen) 05/27/2014 5:30 AM EST 05/27/2014 5:39 AM EST Narrative Resulting Agency Comment Spec In Lab Freddy Burciaga MD CHEMISTRY ORDERABLES LINDA BASHIR * Anaerobic Culture (05/26/2014 5:30 PM EST) Anaerobic Culture ? Patient Name: TANA SHELTON ? Ordered By: Freddy BURCIAGA ? MR#: [id number] ?LOC: ??[place] ? /Sex: ??1995 (18 years), [...] ? Ordered By: Freddy BURCIAGA ? MR#: [id number] ?LOC: ??[place] ? /Sex: ??1995 (18 years), [...] S ? Patient: TANA SHELTON ? MR#: [id number] ? S=Susceptible ??I=Intermediate ??R=Resistant ??NA=Not Applicable ? DDS=Dose dependent-suscept ible ??NS=Non-suscepti ble ? CERNER MILLENNIUM Structure of back of trunk (body structure) 05/26/2014 5:30 PM EST 05/26/2014 5:41 PM EST Comment:LUMBAR Narrative Resulting Agency Comment Spec In Lab S Alek Burciaga MD MICROBIOLOGY - GENER AL ORDERABLES [facility] * Anaerobic Culture (05/26/2014 5:30 PM EST) Anaerobic Culture ? Patient Name: TANA SHELTON ? Ordered By: Freddy BURCIAGA ? MR#: [id number] ?LOC: ??[place] ? /Sex: ??1995 (18 years), ? Female ? PROCEDURE: Anaerobic Culture ?SOURCE: Other ? COLLECTED: 05/26/2014 17:30 ?FREE TEXT SOURCE: Anterior Flank ? STARTED: 05/26/2014 17:41 ? FINAL REPORT ? Final Report ? Verified:2014 12:54 ? No anaerobic organisms isolated ? PRELIMINARY REPORT ? Preliminary Report ? Verified:2014 12:08 ? No anaerobic organisms isolated to date ? LINDA KEMPIUM Specimen of unknown material (specimen) 05/26/2014 5:30 PM EST 05/26/2014 5:41 PM EST Comment:ANTERIOR FLANK Narrative Resulting Agency Comment Spec In Lab Freddy Burciaga MD MICROBIOLOGY - GENER AL ORDERABLES [facility] * Tissue culture (05/26/2014 5:30 PM EST) Tissue Culture ? Patient Name: TANA SHELTON ? Ordered By: Freddy BURCIAGA ? MR#: [id number] ?LOC: ??[place] ? /Sex: ??1995 (18 years), [...] plates. ? Patient: TANA SHELTON ? MR#: [id number] ? SUSCEPTIBILITY RESULTS ? Coagulase negative Staphylococcus [...] (1) ? Gentamicin is not appropriate for [facility]-the[facility]. ? (2) ? Penicillin resistant, Nafcillin susceptible [...] ? Ordered By: Freddy BURCIAGA ? MR#: [id number] ?LOC: ??[place] ? /Sex: ??1995 (18 years), [...] MD MICROBIOLOGY - GENER AL ORDERABLES [facility] * Tissue culture (05/26/2014 5:30 PM EST) Tissue Culture ? Patient Name: TANA SHELTON ? Ordered By: Freddy BURCIAGA ? MR#: [id number] ?LOC: ??[place] ? /Sex: ??1995 (18 years), [...] PM EST) Ab Screen Interp Negative LINDA BASHIR Expires at 2359 on: [id number] LINDA KEMPIUM [...] BANK LAB ORDER MYRANDA Performing Organization Address City/[facility]/ZIP Co de Phone Number LINDA BASHIR * [...] MD HEMATOLOGY ORDERABLE S Performing Organization Address City/[facility]/ZIP Co de Phone Number CERALIN MILLENNIUM * (ABNORMAL) Hemogram (05/26/2014 4:15 [...] intervals supplied above were not validated at [facility]. Results from pediatric patients should be interpreted [...] the following links into your internet browser. [email or web address] Blood specimen (specimen) 05/26/2014 4:15 AM EST 05/26/2014 4:35 AM EST Narrative Resulting Agency Comment Spec In Lab S Alek Burciaga MD CHEMISTRY ORDERABLES LINDA BASHIR * Place PICC Line: Contact Vascular Access Page [phone] (05/25/2014 4:01 PM EST) Narrative [place] [...] to the planned procedure. Hand Hygiene: The radiologic tech did perform hand hygiene prior to line insertion. Catheter type: PICC Lot number: [id number] Procedure Technique: Skin was prepped with chlorhexidine. [...] focal. COMPARISON: Scoliosis radiographs from 12/16/2011 FINDINGS: Girl Friday views demonstrate severe rightward scoliotic deformity centered [...] No gross collections in the cervical spine. Girl Friday coronal image 8 of series 8 demonstrates [...] inf,focal. COMPARISON: Scoliosis radiographs from 12/16/2011 FINDINGS: Girl Friday views demonstrate severe rightward scoliotic deformity centered [...] abnormalities. No grosscollections in the cervical spine. Girl Friday coronal image 8 of series 8 demonstrates [...] Narrative 05/25/2014 4:10 PM EST See accession #[id number] for dictation of this study. This report was reviewed by Andrade Rebolledo MD at 05/25/2014 4:05 PM Film and interpretation reviewed by the attending Procedure Note Andrade Roth MD - 05/25/2014 See accession #[id number] for dictation of this study. This report [...] Alek Burciaga MD HEMATOLOGY ORDERABLE S LINDA TOMASENNIUM * (ABNORMAL) Hemogram (05/25/2014 5:00 AM EST) Pathologist [facility] WBC 7.1 4.0 - 10.0 x10(3)/mcL CERNER [...] Alek uBrciaga MD HEMATOLOGY ORDERABLE S LINDA BASHIR * (ABNORMAL) Basic Metabolic Panel (non-fasting) (05/25/2014 5:00 AM EST) Pathologist [facility] Glucose Lvl 87 60 - 199 mg/dL CERNER MILLENNIUM Comment:Diabetes: >=200 mg/d L plus symptoms BUN 6(L) 8 - 18 mg/dL CERNER MILLENNIUM Creatinine 0.27(L) 0.70 - 1.20 mg/dL CERNER MILLENNIUM Comment: Please note that the pediatric reference intervals supplied above were not validated at [facility]. Results from pediatric patients should be interpreted [...] the following links into your internet browser. [email or web address] Blood specimen (specimen) 05/25/2014 5:00 AM EST 05/25/2014 5:19 AM EST Narrative Resulting Agency Comment Spec In Lab S Alek Burciaga MD CHEMISTRY ORDERABLES CERALIN TOMASENNIUM * Differential, Automated (05/24/2014 12:42 PM EST) [...] BASHIR * (ABNORMAL) Basic Metabolic Panel (non-fasting) (05/24/2014 12:42 PM EST) Glucose Lvl 78 60 - 199 mg/dL CERNER MILLENNIUM Comment:Diabetes: >=200 mg/d L plus symptoms BUN 4(L) 8 - 18 mg/dL CERNER MILLENNIUM Comment:result rechecked-f Creatinine 0.39(L) 0.70 - 1.20 mg/dL CERNER MILLENNIUM Comment: Please note that the pediatric reference intervals supplied above were not validated at [facility]. Results from pediatric patients should be interpreted [...] the following links into your internet browser. [email or web address] Blood specimen (specimen) 05/24/2014 12:42 PM EST 05/24/2014 12:42 PM EST Narrative Resulting Agency Comment Spec In Lab Freddy Burciaga MD CHEMISTRY ORDERABLES Performing Organization Address [facility] Co de Phone Number LINDA BASHIR * [...] ORDERABLES Performing Organization Address [facility] Co de Phone Number LINDA BASHIR * [...] ORDERABLES Performing Organization Address [facility] Co de Phone Number CERNER MILLENNIUM * [...] ORDERABLES Performing Organization Address [facility] Co de Phone Number CERNER MILLENNIUM * (ABNORMAL) Phosphorus (05/22/2014 12:45 PM EST) Phosphorus 2.2(L) 2.5 - 4.5 mg/dL CERNER MILLENNIUM Blood specimen (specimen) Venous Draw / Unknown 05/22/2014 12:45 PM EST 05/22/2014 1:03 PM EST Narrative Resulting Agency Comment Spec In Lab Lucho Smith MD CHEMISTRY ORDERABLES Performing Organization Address [facility] Co de Phone Number CERNER MILLENNIUM * Magnesium (05/22/2014 12:45 PM EST) Magnesium 0.69 0.69 - 1.07 mmol/L CERNER MILLENNIUM Blood specimen (specimen) Venous Draw / Unknown 05/22/2014 12:45 PM EST 05/22/2014 1:03 PM EST Narrative Resulting Agency Comment Spec In Lab Lucho Smith MD CHEMISTRY ORDERABLES Performing Organization Address [facility] de Phone Number CERALIN TOMASENNIUM * Lipase (05/22/2014 12:45 PM EST) Lipase 44 0 - 60 unit/L CERNER MILLENNIUM Blood specimen (specimen) 05/22/2014 12:45 PM EST 05/22/2014 1:03 PM EST Narrative Resulting Agency Comment Spec In Lab Lucho Smith MD CHEMISTRY ORDERABLES Performing Organization Address [facility] de Phone Number [facility] * Amylase (05/22/2014 12:45 PM EST) Amylase 89 28 - 100 unit/L CERNER MILLENNIUM Blood specimen (specimen) 05/22/2014 12:45 PM EST 05/22/2014 1:03 PM EST Narrative Resulting Agency Comment Spec In Lab Lucho Smith MD CHEMISTRY ORDERABLES Performing Organization Address [facility] de Phone Number [facility] * (ABNORMAL) Comprehensive metabolic panel (non-fasting) (05/22/2014 12:45 PM EST) Pathologist [facility] Glucose Lvl 81 60 - 199 mg/dL CERNER MILLENNIUM Comment:Diabetes: >=200 mg/d L plus symptoms BUN 2(L) 8 - 18 mg/dL CERNER MILLENNIUM Creatinine 0.31(L) 0.70 - 1.20 mg/dL CERNER MILLENNIUM Comment: Please note that the pediatric reference intervals supplied above were not validated at [facility]. Results from pediatric patients should be interpreted [...] the following links into your internet browser. [email or web address] Blood specimen (specimen) 05/22/2014 12:45 PM EST [...] S Performing Organization Address [facility] Co de Phone Number [facility] * Vancomycin, trough (05/22/2014 6:10 AM [...] ORDERABLES Performing Organization Address [facility] Co de Phone Number [facility] KRYSTEN * (ABNORMAL) Basic Metabolic Panel (non-fasting) (05/22/2014 6:10 AM EST) Glucose Lvl 86 60 - 199 mg/dL CERNER MILLENNIUM Comment:Diabetes: >=200 mg/d L plus symptoms BUN 3(L) 8 - 18 mg/dL CERNER MILLENNIUM Creatinine 0.27(L) 0.70 - 1.20 mg/dL CERNER MILLENNIUM Comment: Please note that the pediatric reference intervals supplied above were not validated at [facility]. Results from pediatric patients should be interpreted [...] the following links into your internet browser. [email or web address] Blood specimen (specimen) 05/22/2014 6:10 AM EST 05/22/2014 6:22 AM EST Narrative Resulting Agency Comment Spec In Lab S Alek Burciaga MD CHEMISTRY ORDERABLES LINDA KEMPIUM * (ABNORMAL) Differential, Automated (05/21/2014 4:23 AM [...] intervals supplied above were not validated at [facility]. Results from pediatric patients should be interpreted [...] the following links into your internet browser. [email or web address] Blood specimen (specimen) 05/21/2014 4:23 AM EST 05/21/2014 4:38 AM EST Narrative Resulting Agency Comment Spec In Lab Freddy Burciaga MD CHEMISTRY ORDERABLES Performing Organization Address City/State/ZIP Co mo Phone Number [facility] * Environmental Studies Program Director Culture (05/20/2014 10:01 PM EST) Environmental Studies Program Director Culture ? Patient Name: TANA SHELTON ? Ordered By: Freddy BURCIAGA ? MR#: [id number] ?LOC: ??[place] ? /Sex: ??1995 (18 years), ? Female ? PROCEDURE: Environmental Studies Program Director Culture ?SOURCE: Other ? COLLECTED: 05/20/2014 22:01 [...] ? Ordered By: Freddy BURCIAGA ? MR#: [id number] ?LOC: ??[place] ? /Sex: ??1995 (18 years), [...] ? Ordered By: Freddy BURCIAGA ? MR#: [id number] ?LOC: ??[place] ? /Sex: ??1995 (18 years), [...] ?S ? Tobramycin ? S ? Patient: SHELTONTANA S ? MR#: [id number] ? S=Susceptible ??I=Intermediate ??R=Resistant ??NA=Not Applicable ? DDS=Dose dependent-suscept ible ??NS=Non-suscepti ble ? CRISTANER MILLENNIUM Structure of back of trunk (body structure) 05/20/2014 9:25 PM EST 05/20/2014 10:12 PM EST Comment:LUMBAR WOUND CULTURE #2 Narrative Resulting Agency Comment Spec In Lab Freddy Burciaga MD MICROBIOLOGY - GENER AL ORDERABLES [facility] * Anaerobic Culture (05/20/2014 8:20 PM EST) Anaerobic Culture ? Patient Name: TANA SHELTON ? Ordered By: Freddy BURCIAGA ? MR#: [id number] ?LOC: ??[place] ? /Sex: ??1995 (18 years), [...] Agency Comment Spec In Lab S Alek Lollis MD MICROBIOLOGY - GENER AL ORDERABLES LINDA BASHIR * Tissue culture (05/20/2014 8:20 PM EST) Tissue Culture ? Patient Name: TANA SHELTON ? Ordered By: Freddy BURCIAGA ? MR#: [id number] ?LOC: ??[place] ? /Sex: ??1995 (18 years), [...] ? Ordered By: BELKIS LOUIE ? MR#: [id number] ?LOC: ??[place] ? /Sex: ??1995 (18 years), ? Female ? PROCEDURE: Urine Culture ?SOURCE: [facility] ? COLLECTED: 05/20/2014 18:46 ? STARTED: 05/20/2014 [...] Louie MD MICROBIOLOGY - GENER AL ORDERABLES [facility] * (ABNORMAL) Urinalysis with microscopic (05/20/2014 6:46 [...] Appearance UA Hazy(A) Clear CERNER MILLENNIUM Spec [place] UA 1.026 1.002 - 1.030 CERNER MILLENNIUM [...] In Lab Belkis Louie MD URINE ORDERABLES [facility] * L-Lactate2 Whole Blood (05/20/2014 6:17 PM EST) Lactate WB 1.6 0.5 - 2.2 mmol/L LINDA BASHIR Blood specimen (specimen) 05/20/2014 6:17 PM EST 05/20/2014 6:17 PM EST Belkis Louie MD CHEMISTRY ORDERABLES LINDA BASHIR * Blood culture (05/20/2014 6:00 PM EST) Blood Culture ? Patient Name: TANA SHELTON ? Ordered By: BELKIS LOUIE ? MR#: [id number] ?LOC: ??[place] ? /Sex: ??1995 (18 years), [...] Louie MD CHEMISTRY ORDERABLES Performing Organization Address City/[facility] Co de Phone Number LINDA KEMPIUM * [...] S Performing Organization Address [facility] Co de Phone Number CERNER MILLENNIUM * [...] MD HEMATOLOGY ORDERABLE S CERNER MILLENNIUM * Blood culture (05/20/2014 5:15 PM EST) Blood Culture ? Patient Name: TANA SHELTON ? Ordered By: BELKIS LOUIE ? MR#: [id number] ?LOC: ??[place] ? /Sex: ??1995 (18 years), [...] ? No growth at 4 days. ? [facility] Blood specimen (specimen) STRUCTURE OF LEFT HAND / Unknown 05/20/2014 5:15 PM EST 05/20/2014 7:17 PM EST Comment:HOLD UNTIL MD HULL Narrative Resulting Agency Comment Spec In Lab Belkis Louie MD MICROBIOLOGY - BLOOD ORDERABLES [facility] * Glucose, random (05/20/2014 5:15 PM EST) Glucose Lvl 81 60 - 199 mg/dL [facility] Comment:Diabetes: >=200 mg/d L plus symptoms Blood specimen (specimen) 05/20/2014 5:15 PM EST 05/20/2014 5:31 PM EST Narrative Resulting Agency Comment Spec In Lab Belkis Louie MD CHEMISTRY ORDERABLES Performing Organization Address [facility] Phone Number LINDA BASHIR * (ABNORMAL) Creatinine (05/20/2014 5:15 PM EST) Creatinine 0.37(L) 0.70 - 1.20 mg/dL [facility] Comment: Please note that the pediatric reference intervals supplied above were not validated at [facility]. Results from pediatric patients should be interpreted in conjunction to the patient's age, height and muscle mass. Estimated GFR >60 >=60 [facility] Comment: This estimated GFR (eGFR) value [...] the following links into your internet browser. [email or web address] Blood specimen (specimen) 05/20/2014 5:15 PM EST 05/20/2014 5:31 PM EST Narrative Resulting Agency Comment Spec In Lab Belkis Louie MD CHEMISTRY ORDERABLES Performing Organization Address [facility] Phone Number LINDA BASHIR * BUN (05/20/2014 5:15 PM EST) BUN 9 8 - 18 mg/dL [facility] Blood specimen (specimen) 05/20/2014 5:15 PM EST 05/20/2014 5:31 PM EST Narrative Resulting Agency Comment Spec In Lab Belkis Louie MD CHEMISTRY ORDERABLES Performing Organization Address [facility] de Phone Number LINDA BASHIR * (ABNORMAL) [...] Resulting Agency Comment Spec In Lab Belkis oLuie MD CHEMISTRY ORDERABLES [facility] documented in this encounter Visit Diagnoses [...] Nely Boss, Indication for (Active or Suspected): GEOGRAPHY FACULTY MEMBER/Meningitis 0616 (Given - Provider: Linsey Mcintyre RN)1446 [...] RN) 09 (Not Given - Provider: Hedy Vazquez RN - Reason: Contraindicated - Comment: Frequent loose stools) docusate sodium (COLACE) oral liquid 100 mg (CANCELED) 100 mg, Oral, 2 TIMES DAILY, First dose on Thu05/31/14 at 1230, Until Discontinued, Routine 1242 (Given - Provider: Dolores Patino RN)2050 (Given - Provider: Linsey Mcintyre RN) 100 (Given - Provider: Dolores Patino RN)2100 (Not [...] RN)2010 (Given - Provider: Margot Monzon RN) 08 (Given - Provider: Hedy Vazquez RN) polyethylene glycol (MIRALAX) packet 17 g (CANCELED) 17 g, Oral, DAILY, First dose on 05/21/14 at 0900, Until Discontinued 0959 (Given - Provider: Dolores Patino RN) 1003 (Given - Provider: Dolores Patino RN - Comment: Caregiver) 0900 (Not Given - Provider: Hdey Vazquez, EUNICE - Reason: Contraindicated - Comment: [...] 1832 1244 (New Bag - Provider: Dolores Patino, EUNICE)1330 (Stopped - Provider: Dolores Patino RN - Comment: OOb to WC with PT)1445 (Restarted - Provider: Dolores Patino RN) 1705 (New Bag - Provider: Dolores Patino RN) 1500 (Stopped - Provider: Elmer Cotto RN) PRN Medication Order 05/31/2014 06/01/2014 06/02/2014 acetaminophen (TYLENOL) suppository 650 mg (CANCELED)(Linked Group 2) 650 mg, Rectal, EVERY 4 HOURS PRN, Starting on 05/26/14 at 0904, Until Thu06/02/14 at 1832, Pain, [...] Patino RN) 1416 (Given - Provider: Dolores Patino, EUNICE) Linked Groups Order Group 1: vancomycin 1 [...] Routine documented in this encounter Care Teams Chocolate Temperer Relationship Specialty Start Date End Date Naina Lindsey MD [address] [place] [address] PCP - General 03/19/10 08/25/16 documented as of this encounter
--- OUTSIDE RECORDS SUMMARY | 2023-11-16 17:02 | XMS_ITS | Encounter Summary ---
Author Organization [facility] [place] [address] Care Team Providers Care Health Analytics Consultant Name Role Phone Naina Lindsey MD Primary Care Provider [phone] Reason for Visit * Reason Comments Pain Management Encounter Details Date Type Department Care Team (Latest Contact Info) Description 04/25/2014 4:15 PM EST Procedure [place] [phone] Donnell Dotson MD [facility] [place] [address] Spasticity; Presence of intrathecal baclofen pump; Cerebral [...] EDT TH Visit (TeleHealth) [place] [address] Lilli Joy APRN [facility] [place], [place] [address] 12/03/2023 12:30 PM EDT Office [place] [address] Hollie Ambriz MD [facility] DR [place]FECTI[place] [address] 12/03/2023 2:30 PM EDT Appoint[place] [address] Andrade Melvin MD [facility] DR DIAGNOSTIC [place] [address] documented as of this encounter Procedures Procedure Name Priority Date/Time Associated Diagnosis Comments INTRATHECAL PUMP REPROGRAMMING Routine 04/25/2014 5:50 PM EST Cerebral palsy documented in this encounter Results * INTRATHECAL PUMP REPROGRAMMING (04/25/2014 5:50 PM EST) Narrative Donnlel Dotson MD - 04/25/2014 5:50 PM EST [...] unspecified documented in this encounter Care Teams Health Analytics Consultant Relationship Specialty Start Date End Date Naina Lindsey MD [address] [facility] [place] [address] PCP - General 03/19/10 08/25/16 documented as of this encounter
--- OUTSIDE RECORDS SUMMARY | 2023-11-16 17:02 | XMS_ITS | Encounter Summary ---
Author Organization [facility] [place] [address] Care Team Providers Care Headwaiter/Headwaitress Name Role Phone Naina Lindsey MD Primary Care Provider [phone] Reason for Visit * Reason Comments Pain Pain, Chronic Encounter Details Date Type Department Care Team (Latest Contact Info) Description 03/15/2014 4:45 PM EST Procedure [place] [phone] Donnell Dotson MD [facility] [place] [address] Presence of intrathecal baclofen pump; Abnormal involuntary movements(601.0) Discharge Disposition: Home Social History Tobacco Use [...] 25 mcg per day. Donnell Dotson MD Pediatric Anesthesiologist of Anesthesiology [facility] documented in this encounter Plan of Treatment Upcoming Encounters Date Type Department Care Team (Late st Contact Info) Description 11/19/2023 2:30 PM EDT TH Visit (TeleHealth) Infectious Disease at [facility] [place] [address] Lilli Joy APRN [facility] [place] [address] 12/03/2023 12:30 PM EDT Office [place] [address] Hollie Ambriz MD [facility] [place] [address] 12/03/2023 2:30 PM EDT [place] [address] Andrade Melvin MD [facility] [place] [address] documented as of this encounter [...] 25 mcg per day. Donnell Dotson MD Pediatric Anesthesiologist of Anesthesiology Pain Management [facility] Donnell Dotson MD PROCEDURE/MINOR SURG ICAL ORDERABLES documented in this encounter Visit Diagnoses Diagnosis Presence of intrathecal baclofen pump Abnormal involuntary movements(781.0) Abnormal involuntary movements documented in this encounter Care Teams Headwaiter/Headwaitress Relationship Specialty Start Date End Date Naina Lindsey MD [address] [place] [address] PCP - General 03/19/10 08/25/16 documented as of this encounter
--- OUTSIDE RECORDS SUMMARY | 2023-11-16 17:02 | XMS_ITS | Encounter Summary ---
Author Organization [facility] [place] [address] Care Team Providers Care Exterior Interior Specialist Name Role Phone Naina Lindsey MD Primary Care Provider [phone] Encounter Details Date Type Department Care Team (Latest Contact Info) Description 05/03/2014 4:15 PM EST Procedure [place] [phone] Donnell Dotson MD [facility] [place] [address] Presence of intrathecal baclofen pump Discharge Disposition: [...] Jamaal Samuel relatively soon. Donnell Dotson MD [place] Worker of Anesthesiology [facility] documented in this encounter Plan of Treatment Upcoming Encounters Date Type Department Care Team (Late st Contact Info) Description 11/19/2023 2:30 PM EDT TH Visit (TeleHealth) [place] [address] Lilli Joy APRN [facility] [place] [address] 12/03/2023 12:30 PM EDT Office [place] [phone] Hollie Ambriz MD [facility] [place] [address] 12/03/2023 2:30 PM EDT [place] [phone] Andrade Melvin MD [facility] DR [place] [address] documented as of this encounter Visit Diagnoses Diagnosis Presence of intrathecal baclofen pump documented in this encounter Care Teams Exterior Interior Specialist Relationship Specialty Start Date End Date Naina Lindsey MD [address] [address] PCP - General 03/19/10 08/25/16 documented as of this encounter
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
--- OUTSIDE RECORDS SUMMARY | 2023-11-16 17:02 | XMS_ITS | Encounter Summary ---
Author Organization [facility] [place] [address] Care Team Providers Care Signing Agent Name Role Phone Naina Lindsey MD Primary Care Provider [phone] Encounter Details Date Type Department Care Team (Late st Contact Info) Description 05/11/2014 7:31 AM EST Anesthesia Event [place] [address] Danielle Kwan MD [facility] ANESTHESIOLOGY [place] [address] Anesthesia Record Procedure Summary Procedure Name Responsible [...] 0731; metacarpal vein right (top of hand); ztgs-[id number]-fnqaip catheter system; 22 gauge; [place]; 05/12/14; 141605/11/14 [...] BILATERAL performed by BARRERA OLIVER [facility] MAIN OR ??? Apply of hip casts, two legs 08/15/2010 CAST APPLICATION, HIP SPICA, BOTH LEGS performed by BARRERA OLIVER at [facility] MAIN OR ??? Removal deep implant 08/15/2010 REMOVAL IMPLANT, DEEP, BRUNO performed by BARRERA OLIVER at [facility] MAIN OR ??? Osteotomy femur shaft/supracondy 08/15/2010 ??OSTEOTOMY, FEMUR SHAFT OR SUPRACONDYLAR W/O FIXATION performed by BARRERA OLIVER at [facility] MAIN OR History Substance Use Topics ??? [...] Assessment: Pulmonary Assessment: [facility]: Anesthesia Plan: ASA 2 general, with [...] and mother whom consented to blood products. [facility]. Assessment: documented in this encounter Plan of Treatment Upcoming Encounters Date Type Department Care Team (Late st Contact Info) Description 11/19/2023 2:30 PM EDT TH Visit (TeleHealth) [place] [address] Lilli Joy APRN [facility] [place] [address] 12/03/2023 12:30 PM EDT Office Visit [place] [address] Hollie Ambriz MD [facility] INFECTIOUS [place] [address] 12/03/2023 2:30 PM EDT Appointment [place] [address] Andrade Melvin MD [facility] DIAGNOSTIC RADIOLOGY [place], [place] [id number] documented as of this encounter Visit Diagnoses [...] mg documented in this encounter Care Teams Signing Agent Relationship Specialty Start Date End Date Naina Lindsey MD [address] [place] [address] PCP - General 03/19/10 08/25/16 documented as of this encounter
--- OUTSIDE RECORDS SUMMARY | 2023-11-16 17:02 | XMS_ITS | Encounter Summary ---
Author Organization [facility] [place] [address] Care Team Providers Care Manager Payroll Name Role Phone Naina Lindsey MD Primary Care Provider [phone] Reason for Visit * Reason Comments Post-op Problem Encounter Details Date Type Department Care Team (Late st Contact Info) Description 05/20/2014 7:24 PM EST - 05/20/2014 9:57 PM EST Surgery [place] [phone] Freddy Burciaga MD [facility] [place] [address] @I & D, OPEN, DEEP ABSCESS, LUMBAR, [...] Routine, Hospital Performed Vendor / contact information: [facility] Patient location post discharge: home Service requested: IV abx Start date: 05/26/2014 Responsible MD post discharge contact info: WILL Smith (Edit) Referral to Home Health - at DISCHARGE Routine, Clinic Performed Agency name and contact information: [facility] Patient location post discharge: home What services are requested: Registered Nurse, Home Health Aide, Physical Therapy, Occupational Therapy Start date: 05/26/2014 Responsible MD post discharge contact info: PCP PATIENT'S LOCATION: Tana Shelton [address] [place] [phone] (home) In discussion with the attending physician, it is certified that this patient is under their care and that they, or a Nurse Practitioner,Clinical Nurse specialist or Physician Seat Cover Maker who is working directly with them, had [...] Continue with therapies OT: Continue with therapies HORTICULTURE SUPERINTENDENT: Continue support HOME HEALTH CARE AGENCY: [facility] [email or web address]. PHONE: [phone] FAX: [phone] Start of care: 05/26/14 Please note that any additional orders needs or changes will need to be obtained from this patient's PCP: MD Coby BRAGG DR / [facility] [id number] All VNA agencies which cover the area of patient's residence have been reviewed, either verbally or in writing, and patient/family have chosen the home health care agency noted Emergency contact: After hours and weekends, call the [facility] rope coiling machine operator at and ask them to page the neurosurgery resident quality control auditor. documented in this encounter Medications at Time [...] (AVS) and given to the patient or industrial relations representative. 6) If VNA was ordered, I [...] 0.9% 50 mL Mini-Bag Plus 2 g QmrplrnybwnE3R ??? baclofen 10 mg Oral Nightly ??? levonorgestrel-ethinyl estradiol 1 tablet Oral Daily ??? polyethylene glycol 17 g Oral Daily ??? sodium chloride 0.9 % 5 mL Intravenous BID ??? diaZEPam 5 mg Oral BID Continuous Infusions: ??? sodium chloride 0.9% with potassium chloride 20 mEq 50 mL/hr (06/01/14 0985) PRN Meds:acetaminophen OR acetaminophen, flu vaccine (36 [...] elevated HR this am S: Kenneth Rocco. [facility], [id number] singing ABCs and counting along with stretches [...] pt to d/chome with support and continued PT/OT/FIELD AUTO APPRAISER/VNA services. Staff communication/Mobility Recommendations: Pt. Would benefit [...] timed interventions: 30 minutes for TherEx-F Pager: [phone] Mary Joe, OT Occupational Therapy Rehabilitation Department * Isra Perez RN - 06/01/2014 2:43 PM EST Patient Name: Tana Shelton Patient Age: 18 y.o. Birthdate: 1995 Admit date: 05/20/2014 Attending Physician: Jamaal Samuel MD OFFICE OF CARE MANAGEMENT Farhana Perez RN Pager: [phone] CLINICAL FINANCIAL COACH PROGRESS NOTE e-DH reviewed. Report received from DEMI Sanchez. Patient continues to require acute inpatient care for the treatment of infection. Patient remains on triple abx while awaiting final cultures. [facility] and [facility] have been referred to for discharge. Met with patient's mother at bedside. Mom had multiple questions the other day regarding equipment for home. Mattress for hospital bed was ordered and delivered to home from [facility]. Tomasa Sling was ordered and is to be delivered by [facility] when it ships to [facility] warehouse. TLSO brace to be fitted by [facility]. Mom also inquired about a new motorized wheelchair. Called [facility] in [place] to see if patient would qualify, left message with Oliver- the rehabilitation services counselor for [facility]. Patient will need [...] 0.9% 50 mL Mini-Bag Plus 2 g AglpzwokbldH2Y ??? baclofen 10 mg Oral Nightly ??? [...] has recovered and I can review the [facility] records and films * Natividad Esqueda, [...] family in a single story home in [place], [place]. Pt's mother reports that there is no stair requirement, and that she has all necessary equipment. Stairs: 0 without a rail to enter Baseline Mobility: Completely dependent for all care, home nursing VNA services 3x/week, school-based PT/OT/FIELD AUTO APPRAISER, pt due to receive a communication device [...] than in previous treatment session, counting withthis abstract writer during stretching Objective: Patient seen for [...] internal rotators, adductors ?? Pt helped this abstract writer with opposite UE when performing stretching [...] session, playing with toys, playfully tricking this abstract writer when counting during passive stretching, and [...] exercise Natividad Esqueda PT, DPT 05/31/2014 Pager: [phone] Physical Therapy Inpatient Rehabilitation Department * Nathalie [...] OF CARE MANAGEMENT Farhana Perez RN Pager: [phone] CLINICAL FINANCIAL COACH PROGRESS NOTE e-DH reviewed. Report received from DEMI Sanchez. Patient continues to require acute inpatient care for the treatment of infection. Patient is on triple abx. Patient needs a new mattress for her hospital bed at home. Patient's mother would like order placed with [employer]. Order pended and booking sent via [employer] Plan: CRC will continue to follow for [...] pt to d/chome with support and continued PT/OT/FIELD AUTO APPRAISER/VNA services. Staff communication/Mobility Recommendations: Pt. Would benefit [...] timed interventions: 45 minutes for TherEx Pager: [phone] Mary Joe OT Occupational Therapy Rehabilitation Department [...] 0.9% 50 mL Mini-Bag Plus 2 g PhnararftpfM6N ??? baclofen 10 mg Oral Nightly ??? [...] OF CARE MANAGEMENT Farhana Perez RN Pager: [phone] CLINICAL FINANCIAL COACH PROGRESS NOTE e-DH reviewed. Report received from [...] as pt becomes available. Please contact this abstract writer with any further questions or concerns. Thank you. Pager: [phone] Mary Joe OTR/L Occupational Therapy Inpatient Rehabilitation [...] family in a single story home in [place], [place]. Pt's mother reports that there is no stair requirement, and that she has all necessary equipment. Stairs: 0 without a rail to enter Baseline Mobility: Completely dependent for all care, home nursing VNA services 3x/week, school-based PT/OT/FIELD AUTO APPRAISER, pt due to receive a communication device [...] pt very smiley today, counting with this abstract writer during stretching, showing off her favorite [...] exercise Natividad Esqueda PT, DPT 05/29/2014 Pager: [phone] Physical Therapy Inpatient Rehabilitation Department * Wai [...] not hesitate to page us on pager [phone] with further questions or concerns. Patient discussed with Dr. Wai Crabtree. Dimple Messina MD Fellow, Infectious Disease 05/29/2014 ID Staff: Discussed with Dr. Messina. Agree with current regimen. This will be a very difficult regimen at [facility] some further discussion is needed. We are [...] 0.9% 50 mL Mini-Bag Plus 2 g PxzjawtfryaR1O ??? baclofen 10 mg Oral Nightly ??? [...] 0.9% 50 mL Mini-Bag Plus 2 g OylugykuaziO1X ??? baclofen 10 mg Oral Nightly ??? [...] CRC received call from EUNICE Hair, from [place], [place] or Asking for status as they will follow her after discharge for IV antibiotic treatment. She will need an OPAT order faxed to above agency when she is ready for discharge as well as administration teaching for home. When ready for discharge, [facility] [employer] PHONE: [phone] FAX: [phone] will also need to be updated. Referral had been made by previous CRC. Covering pager #[phone] for pager #[phone]. * Darius Maguire T - 05/27/2014 8:23 [...] 0.9% 50 mL Mini-Bag Plus 2 g FuptmfbvofkF9H ??? baclofen 10 mg Oral Nightly ??? [...] Dressing clean and dry Wound without fluctuance [address] Assessment/Plan:: 18 y.o. female s/p removal [...] family in a single story home in [place], [place]. Pt's mother reports that there is no stair requirement, and that she has all necessary equipment. Stairs: 0 without a rail to enter Baseline Mobility: Completely dependent for all care, home nursing VNA services 3x/week, school-based PT/OT/FIELD AUTO APPRAISER, pt due to receive a communication device [...] exercise Natividad Esqueda PT, DPT 05/26/2014 Pager: [phone] Physical Therapy Inpatient Rehabilitation Department * Freddy Burciaga MD - 05/26/2014 6:27 AM EST Neurosurgery - Inpatient Progress Note ID: Tana Shelton, 18 y.o. female s/p removal of retained hardware, washout of infection 05/20 POD 6 Interval Hx: -ALEKSANDRA -Neurologically stable Objective: Medications: Scheduled Meds: ??? cefTAZidime (FORTAZ) 2g vial attach to sodium chloride 0.9% 50 mL Mini-Bag Plus 2 g UwieddzggatV4H ??? baclofen 10 mg Oral Nightly ??? [...] (05/26) or when appropriate. Please page this abstract writer if you have any questions, thank you. Natividad Esqueda PT Pager #[phone] Physical Therapy Inpatient Rehabilitation * Mary Joe, [...] pt to d/chome with support and continued PT/OT/FIELD AUTO APPRAISER/VNA services. Spoke to CRC this about thoracic [...] timed interventions: 27 minutes for TherEx Pager: [phone] Mary Joe OT Occupational Therapy Rehabilitation Department [...] 0.9% 50 mL Mini-Bag Plus 2 g CgfcygpsitwE1F ??? baclofen 10 mg Oral Nightly ??? [...] of Care Management Farhana Perez RN Pager: [phone] Clinical Window Dresser Home IV Antibiotic Therapy Referral Note. Report received from NeuroSurgery Team that patient will require continued home IV antibiotic therapy after discharge from the hospital. Met with patient/family to discuss vendor and visiting nurse choices for home IV antibiotic therapy. Reviewed Home Infusion Vendors and Home Health Agencies that serve patient???s address and accept patient???s insurance. Home Health Agency: Patient requested referral to [facility] [email or web address]. PHONE: [phone] FAX: [phone]. Referrals sent via edischarge. Home Infusion Vendor: Patient requested referral to [place], [place] Tel: or Fax: . Referrals sent [...] 0.9% 50 mL Mini-Bag Plus 2 g PkmsegrnmzsO3S ??? baclofen 10 mg Oral Nightly ??? [...] 0.9% 50 mL Mini-Bag Plus 2 g XovmkbeviknR5G ??? baclofen 10 mg Oral Nightly ??? [...] PM EST Office of Care Management Clinical Window Dresser Patient Name: Tana Shelton : 1995, 18 [...] None on File (x) HEALTH /PRESCRIPTION COVERAGE: [facility] [facility] CURRENT HOME/COMMUNITY SERVICES/EQUIPMENT: DME: [facility] bed, wheelchair, tomasa lift, shower chair. Home Health Agency: [facility] PRIMARY CARE PHYSICIAN: NAINA LINDSEY MD [phone] POTENTIAL DISCHARGE NEEDS: Resume vna visits. Mother stated that she has [facility] vna - RN and Aide currently. Waiting to confirm this and pt needs. Might need home IV antibx. TRANSPORTATION @ D/C: family PLAN: CRC will continue to monitor progress, follow for continuity of care and assist with discharge planning while hospitalized Lesly Jesus RN Office of Care Management Clinical Window Dresser Covering for Farhana Chris [phone] Pager [phone] * Yandy Dasilva, PharmD - 05/22/2014 9:46 AM EST Clinical Pharmacist Note-Vanc Tana S Dirk [id number] 1995 Tana Barlowrd is a 18 y.o. [...] have. Alternately, during off-hours you may call [phone] to contact a pharmacist. Yandy Dasilva PHARMBenjamin Pager [phone] * Freddy Burciaga MD - 05/22/2014 6:59 [...] Clinically does not seem to be of MAGNETIC GRINDER OPERATOR origin. Continue triple antibiotics. ID consult. [...] given to Diana RN Peds. Transferred to [place] [id number] with transport services, RN + family members. Please call Anurag ICU-RN at [phone] with regards to any questions post transfer. [...] mcL Appearance UA Hazy (*) Clear Spec Roy UA 1.026 1.002 - 1.030 Color UA [...] TANA SHELTON Ordered By: Freddy BURCIAGA MR#: [id number] LOC: OR /Sex: 1995 (18 years), Female PROCEDURE: Tissue Culture SOURCE: Back COLLECTED: 05/20/2014 20:20 FREE TEXT SOURCE: Lumbar Wound Culture STARTED: 05/20/2014 22:13 STAINS / PREPARATIONS Gram Stain Report Verified:05/20/2014 22:28 Few White Blood Cells seen No microorganisms seen. TISSUE CULTURE Result Value Ref Range Tissue Culture Value: Patient Name: TANA SHELTON Ordered By: EVITAFreddy IRENE MR#: [id number] LOC: OR /Sex: 1995 (18 years), Female [...] II initiated 0040: Report given to Jenn RUBBER TRIMMER info reviewed/questions answered, pt ready for transfer [...] to the planned procedure. Hand Hygiene: The tour manager did perform hand hygiene prior to line insertion. Catheter type: PICC Lot number: [id number] Procedure Technique: Skin was prepped with chlorhexidine. [...] warm and was flushed. They called the quality control auditor neurosurgeon, who advised that they come to [...] FEMORAL HEAD, BILATERAL performed by YAS OLIVER [facility] MAIN OR ??? Apply of hip casts, two legs 08/15/2010 CAST APPLICATION, HIP SPICA, BOTH LEGS performed by YAS OLIVER at [facility] MAIN OR ??? Removal deep implant 08/15/2010 REMOVAL IMPLANT, DEEP, BRUNO performed by YAS OLIVER at [facility] MAIN OR ??? Osteotomy femur shaft/supracondy 08/15/2010 ??OSTEOTOMY, FEMUR SHAFT OR SUPRACONDYLAR W/O FIXATION performed by YAS OLIVER at [facility] MAIN OR ??? Remove spinal canal catheter N/A 05/11/2014 REMOVAL OF INTRATHECAL OR EPIDURAL CATHETER performed by Jamaal Samuel MD at [facility] MAIN OR ??? Remove infusn device/pump N/A 05/11/2014 REMOVAL OF SPINE INFUSION PUMP performed by Jamaal Samuel MD at [facility] MA[facility] OR Medications: No current facility-administered [...] stepfather Tobacco exposure:No Day care/year in school: [employer] Physical Exam: Vitals: Patient Vitals for the [...] mcL Appearance UA Hazy (*) Clear Spec Roy UA 1.026 1.002 - 1.030 Color UA [...] intrathecal baclofen pump in 2007 at the [facility]. Mother feels that the pump has [...] Size requested: twin bed Vendor Name/Contact information: [facility] New (Edit) Referral for Outpatient Antibiotics Routine, Hospital Performed Vendor / contact information: [facility] Patient location post discharge: home Service requested: IV abx Start date: 05/26/2014 Responsible MD post discharge contact info: PCP New (Edit) Referral to Home Health - at DISCHARGE Routine, Clinic Performed Agency name and contact information: [facility] Patient location post discharge: home What services are requested: Registered Nurse, Home Health Aide, Physical Therapy, Occupational Therapy Start date: 06/06/2014 Responsible MD post discharge contact info: PCP PATIENT'S LOCATION: Tana Shelton [address] [place] [phone] (home) In discussion with the attending physician, it is certified that this patient is under their care and that they, or a Nurse Practitioner,Clinical Nurse specialist or Physician Seat Cover Maker who is working directly with them, had [...] Continue with therapies OT: Continue with therapies HORTICULTURE SUPERINTENDENT: Continue support HOME HEALTH CARE AGENCY: [facility] PHONE: [phone] FAX: [phone] Start of care: 05/26/14 Please note that any additional orders needs or changes will need to be obtained from this patient's PCP: MD Coby BRAGG DR / [place] [address] All VNA agencies which cover the area of patient's residence have been reviewed, either verbally or in writing, and patient/family have chosen the home health care agency noted Emergency contact: After hours and weekends, call the [facility] rope coiling machine operator at and ask them to page the neurosurgery resident quality control auditor. * Plan of Care - Margot Monzon [...] yo. Supervision: Continuous; Moraima. Fannie at home plant protection supervisor at bedside this morning ; Mom arrived [...] (Interventions Implemented as Appropriate) 05/25/14 0527 05/26/14 8155 Plan of Care Review Plan of Care [...] AM EST Clinical Pharmacist Note-Vancomycin Tana Shelton [id number] 1995 Tana Shelton is a 18 y.o. [...] contact a pharmacist. Elmer Tobin, [place] Pager [phone] * Plan of Care - Leana Hicks [...] Outcome: Ongoing (Interventions Implemented as Appropriate) 05/27/14 5509 Infection, Risk/Actual (Adult, Obstetrics) Infection Prevention/Resolution/Control making progress toward outcome Problem: Fall/Trauma/Injury Risk (Pediatric) Goal: Identify Signs and Symptoms and Related Risk Factors Signs and symptoms and related risk factors are identified upon initiation of Human Response Clinical Practice Guideline (CPG) Outcome: Outcome (s) achieved Date Met: 05/27/14 05/22/14202905/25/14 233 Fall/Trauma/Injury Risk Personal Related Risk Factors (Fall/Trauma/Injury [...] Burciaga MD - 05/26/2014 4:52 PM EST [facility] Operative Note Patient Name: Tana Shelton : [id number] MR#: [id number] Case Date: 05/26/2014 Surgeon: Surgeon(s) and Role: [...] (Interventions Implemented as Appropriate) 05/22/14 0634 05/24/14 7424 Discharge Needs Assessment Concerns to be Addressed [...] Health Knowledge, Opportunity for Enhanced (Adult, NICU, [place], Obstetrics, Pediatric) Goal: Identify Signs and Symptoms and Related Risk Factors Signs and symptoms and related risk factors are identified upon initiation of Human Response Clinical Practice Guideline (CPG) Outcome: Ongoing (Interventions Implemented as Appropriate) * Plan of Care - Carisa Godwin RN - 05/25/2014 8:02 AM EST Problem: Health Knowledge, Opportunity for Enhanced (Adult, NICU, [place], Obstetrics, Pediatric) Goal: Knowledgeable about Health Subject/Topic Patient will demonstrate the desired outcomes. Outcome: Outcome (s) achieved Date Met: 05/25/14 05/25/14 0802 Health Knowledge, Opportunity for Enhanced (Adult, NICU, [place], Obstetrics, Pediatric) Knowledgeable about Health Subject/Topic achieves [...] bedside;lighting adjusted for task/safety;low bed;environmental modification 05/25/14 0544 Musculoskeletal Interventions Activity/Level of Assistance -- Self-Care [...] Outcome: Ongoing (Interventions Implemented as Appropriate) 05/24/14 0054 Plan of Care Review Plan of Care [...] FEMORAL HEAD, BILATERAL performed by YAS OLIVER [facility] OR ??? Apply of hip casts, two legs 08/15/2010 CAST APPLICATION, HIP SPICA, BOTH LEGS performed by YAS OLIVER at [facility] OR ??? Removal deep implant 08/15/2010 REMOVAL IMPLANT, DEEP, BRUNO performed by YAS OLIVER at [facility] OR ??? Osteotomy femur shaft/supracondy 08/15/2010 ??OSTEOTOMY, FEMUR SHAFT OR SUPRACONDYLAR W/O FIXATION performed by YAS OLIVER at [facility] OR ??? Remove spinal canal catheter N/A 05/11/2014 REMOVAL OF INTRATHECAL OR EPIDURAL CATHETER performed by Jamaal Samuel MD at [facility] OR ??? Remove infusn device/pump N/A 05/11/2014 REMOVAL OF SPINE INFUSION PUMP performed by Jamaal Samuel MD at [facility] OR ? ? I&d, post spine, lumb/sacr/lumbosac N/A 05/20/2014 @I & D, OPEN, DEEP ABSCESS, LUMBAR, SACRAL, LUMBOSACRAL performed by Freddy Burciaga MD at [facility] OR ??? Repr, dural/csf leak, not req laminectomy N/A 05/20/2014 @REPAIR DURAL\CSF LEAK,NOT REQUIRING LAMINECTOMY performed by Freddy Burciaga MD at [facility] OR Social and Developmental History: Patient lives with her family in a single level home in [place], [place]. Pt's mother reports that their home [...] has an older sister who lives in [place] and 3 younger brothers. She likes to [...] RN and mom assist. Feeding: per mom: [place] assist for use of utensils; not observed [...] to d/c home with support and continued PT/OT/FIELD AUTO APPRAISER/VNA services. Spoke with CRC about consultfor new [...] you for this occupational therapy consult. Pager: [phone] Mary Joe OT 05/24/2014 Occupational Therapy Rehabilitation [...] FEMORAL HEAD, BILATERAL performed by YAS OLIVER [facility] OR ??? Apply of hip casts, two legs 08/15/2010 CAST APPLICATION, HIP SPICA, BOTH LEGS performed by YAS OLIVER at [facility] OR ??? Removal deep implant 08/15/2010 REMOVAL IMPLANT, DEEP, BRUNO performed by YAS OLIVER at [facility] OR ??? Osteotomy femur shaft/supracondy 08/15/2010 ??OSTEOTOMY, FEMUR SHAFT OR SUPRACONDYLAR W/O FIXATION performed by YAS OLIVER at [facility] OR ??? Remove spinal canal catheter N/A 05/11/2014 REMOVAL OF INTRATHECAL OR EPIDURAL CATHETER performed by Jamaal Samuel MD at [facility] OR ??? Remove infusn device/pump N/A 05/11/2014 REMOVAL OF SPINE INFUSION PUMP performed by Jamaal Samuel MD at [facility] OR ? ? I&d, post spine, lumb/sacr/lumbosac N/A 05/20/2014 @I & D, OPEN, DEEP ABSCESS, LUMBAR, SACRAL, LUMBOSACRAL performed by Freddy Burciaga MD at [facility] OR ??? Repr, dural/csf leak, not req laminectomy N/A 05/20/2014 @REPAIR DURAL\CSF LEAK,NOT REQUIRING LAMINECTOMY performed by Freddy Burciaga MD at [facility] MA[facility] OR Social History: Patient lives with her family in a single story home in [place], [place]. Pt's mother reports that there is no stair requirement, and that she has all necessary equipment. Stairs: 0 without a rail to enter Baseline Mobility: Completely dependent for all care, home nursing VNA services 3x/week, school-based PT/OT/FIELD AUTO APPRAISER, pt due to receive a communication device [...] appropriate and joins in counting with this abstract writer while stretching Objective: Pt seen for [...] minutes Natividad Esqueda PT, DPT 05/24/2014 Pager: [phone] Physical Therapy Inpatient Rehabilitation Department * Plan [...] based on it's ability to penetrate the MAGNETIC GRINDER OPERATOR. We need todiscuss whether to pursue [...] to 40 mEq. One dose of IV ezewliool29 mEq administered per orders. Re-check of K [...] placement of baclofen pump in 2007 in [place]. Due to lack of efficacy the baclofen [...] and Lipase were normal. Per her daycare instrumentation tech, may be related to administration of oxycodone as this has been issue in the past. Cannotexclude component of baclofen withdrawal, but less likely. No current concern for acute MAGNETIC GRINDER OPERATOR process. - Serial exams. Ensure daily [...] although it may not have the best MAGNETIC GRINDER OPERATOR penetration unless meninges are actually inflamed. [...] fluid only. MD called for antiemetic and RI tylenol. Zofran given when order receivedand med [...] PREVENTION: Assistance: Full assist, mom at bedside. recreation aide will be coming in today to [...] Burciaga MD - 05/21/2014 11:53 AM EST [facility] Operative Note Patient Name: Tana Shelton : [id number] MR#: [id number] Case Date: 05/20/2014 - 05/21/2014 Surgeon: Surgeon(s) [...] FEMORAL HEAD, BILATERAL performed by YAS OLIVER [facility] MAIN OR ??? Apply of hip casts, two legs 08/15/2010 CAST APPLICATION, HIP SPICA, BOTH LEGS performed by YAS OLIVER at [facility] MA[facility] OR ??? Removal deep implant 08/15/2010 REMOVAL IMPLANT, DEEP, BRUNO performed by YAS OLIVER at [facility] MA[facility] OR ??? Osteotomy femur shaft/supracondy 08/15/2010 ??OSTEOTOMY, FEMUR SHAFT OR SUPRACONDYLAR W/O FIXATION performed by YAS OLVIER at [facility] MA[facility] OR ??? Remove spinal canal catheter N/A 05/11/2014 REMOVAL OF INTRATHECAL OR EPIDURAL CATHETER performed by Jamaal Samuel MD at [facility] MA[facility] OR ??? Remove infusn device/pump N/A 05/11/2014 REMOVAL OF SPINE INFUSION PUMP performed by Jamaal Samuel MD at [facility] No family history on file. [...] mcL Appearance UA Hazy (*) Clear Spec Roy UA 1.026 1.002 - 1.030 Color UA [...] TANA SHELTON Ordered By: Freddy BURCIAGA MR#: [id number] LOC: OR /Sex: 1995 (18 years), Female PROCEDURE: Tissue Culture SOURCE: Back COLLECTED: 05/20/2014 20:20 FREE TEXT SOURCE: Lumbar Wound Culture STARTED: 05/20/2014 22:13 STAINS / PREPARATIONS Gram Stain Report Verified:05/20/2014 22:28 Few White Blood Cells seen No microorganisms seen. TISSUE CULTURE Result Value Range Tissue Culture Value: Patient Name: TANA SHELTON Ordered By: Freddy BURCIAGA MR#: [id number] LOC: OR /Sex: 1995 (18 years), Female [...] EDT TH Visit (TeleHealth) [place] [address] Lilli Joy APRN [facility] [place] [address] 12/03/2023 12:30 PM EDT Office [place] [address] Hollie Ambriz MD [facility] [place] [address] 12/03/2023 2:30 PM EDT [place] [address] Andrade Melvin MD [facility] [place] [address] Pending Results Name Type Priority Associated Diagnoses [...] 5:30 AM EST DIFFERENTIAL, AUTOMATED Routine 05/27/19 5:30 AM EST CBC (WITH DIFF) Routine [...] REQUIRING LAMINECTOMY Routine 05/20/2014 10:22 PM EST ZIG ZAG STITCHER CULTURE Routine 5 10:01 PM EST ANAEROBIC [...] intervals supplied above were not validated at [facility]. Results from pediatric patients should be interpreted [...] the following links into your internet browser. http://[employer]DHnkdep [email or web address]://[employer][email or web address] Blood specimen (specimen) 06/02/2014 5:55 AM EST 06/02/2014 6:09 AM EST Narrative Resulting Agency Comment Spec In Lab S Alek Burciaga MD CHEMISTRY ORDERABLES Performing Organization Address [facility] Phone Number [facility] * (ABNORMAL) Sedimentation rate (06/01/2014 12:40 PM EST) Sed Rate 46(H) 0 - 20 mm/hr [facility] Blood specimen (specimen) Venous Draw / Unknown 06/01/2014 12:40 PM EST 06/01/2014 12:48 PM EST Narrative Resulting Agency Comment Spec In Lab S Alek Burciaga MD HEMATOLOGY ORDERABLE S Performing Organization Address [facility] Phone Number [facility] * High Sensitivity CRP (06/01/2014 12:40 PM EST) CRP High Sens 15.4 mg/L [facility] Comment: Interpretations: 1) For accurate cardiac risk [...] and Cardiovascular Disease. ??Circulation 2003; [phone] 2. Negarker PM. ??Clinical applications of C-reactive protein for [...] MD HEMATOLOGY ORDERABLE S Performing Organization Address [facility] Co de Phone Number CERALIN MILLENNIUM * (ABNORMAL) Hemogram (06/01/2014 12:40 [...] MD HEMATOLOGY ORDERABLE S Performing Organization Address [facility] de Phone Number CERALIN KEMPIUM * (ABNORMAL) Basic Metabolic Panel (non-fasting) (06/01/2014 12:40 PM EST) Glucose Lvl 95 60 - 199 mg/dL CERNER MILLENNIUM Comment:Diabetes: >=200 mg/d L plus symptoms BUN 4(L) 8 - 18 mg/dL CERNER MILLENNIUM Creatinine 0.38(L) 0.70 - 1.20 mg/dL CERNER MILLENNIUM Comment: Please note that the pediatric reference intervals supplied above were not validated at [facility]. Results from pediatric patients should be interpreted [...] the following links into your internet browser. http://[employer]DHnkdep [email or web address]://[employer]DHMCnkf Blood specimen (specimen) 06/01/2014 12:40 PM EST [...] intervals supplied above were not validated at [facility]. Results from pediatric patients should be interpreted [...] the following links into your internet browser. http://[employer]DHnkdep [email or web address]://[employer]DHMCnkf Blood specimen (specimen) 05/30/2014 6:50 AM EST [...] * (ABNORMAL) Hemogram (05/29/2014 7:13 AM EST) Pathologist [facility] WBC 6.6 4.0 - 10.0 x10(3)/mcL CERNER [...] S Alek Burciaga MD HEMATOLOGY ORDERABLE S [facility] * (ABNORMAL) Basic Metabolic Panel (non-fasting) (05/29/2014 7:13 AM EST) Pathologist [facility] Glucose Lvl 83 60 - 199 mg/dL CERNER MILLENNIUM Comment:Diabetes: >=200 mg/d L plus symptoms BUN 5(L) 8 - 18 mg/dL CERNER MILLENNIUM Creatinine 0.31(L) 0.70 - 1.20 mg/dL CERNER MILLENNIUM Comment: Please note that the pediatric reference intervals supplied above were not validated at [facility]. Results from pediatric patients should be interpreted [...] the following links into your internet browser. http://[employer]DHnkdep [email or web address]://[employer]DHMCnkf Blood specimen (specimen) 05/29/2014 7:13 AM EST [...] MD HEMATOLOGY ORDERABLE S Performing Organization Address [facility] Co de Phone Number LINDA TOMASENNIUM * Vancomycin, trough (05/28/2014 9:00 AM [...] Burciaga MD CHEMISTRY ORDERABLES Performing Organization Address [facility] Co de Phone Number CERALIN TOMASENNIUM * (ABNORMAL) Basic Metabolic Panel (non-fasting) (05/28/2014 9:00 AM EST) Glucose Lvl 121 60 - 199 mg/dL CERNER MILLENNIUM Comment:Diabetes: >=200 mg/d L plus symptoms BUN 4(L) 8 - 18 mg/dL CERNER MILLENNIUM Creatinine 0.29(L) 0.70 - 1.20 mg/dL CERNER MILLENNIUM Comment: Please note that the pediatric reference intervals supplied above were not validated at [facility]. Results from pediatric patients should be interpreted [...] the following links into your internet browser. http://[employer]DHnkdep [email or web address]://[employer]DHMCnkf Blood specimen (specimen) 05/28/2014 9:00 AM EST [...] MD HEMATOLOGY ORDERABLE S Performing Organization Address [facility] Co de Phone Number LINDA KEMPIUM * (ABNORMAL) Hemogram (05/27/2014 5:30 AM EST) [...] MD HEMATOLOGY ORDERABLE S Performing Organization Address [facility] de Phone Number LINDA BASHIR * (ABNORMAL) Basic Metabolic Panel (non-fasting) (05/27/2014 5:30 AM EST) Glucose Lvl 81 60 - 199 mg/dL CERNER MILLENNIUM Comment:Diabetes: >=200 mg/d L plus symptoms BUN 4(L) 8 - 18 mg/dL CERNER MILLENNIUM Creatinine 0.21(L) 0.70 - 1.20 mg/dL CERNER MILLENNIUM Comment: Please note that the pediatric reference intervals supplied above were not validated at [facility]. Results from pediatric patients should be interpreted [...] the following links into your internet browser. [email or web address]/[email or web address] [email or web address]://[employer]DHnkf Blood specimen (specimen) 05/27/2014 5:30 AM EST 05/27/2014 5:39 AM EST Narrative Resulting Agency Comment Spec In Lab S Alek Burciaga MD CHEMISTRY ORDERABLES [facility] * Anaerobic Culture (05/26/2014 5:30 PM EST) Anaerobic Culture ? Patient Name: TANA SHELTON ? Ordered By: Freddy BURCIAGA ? MR#: [id number] ?LOC: ??[place] ? /Sex: ??1995 (18 years), [...] MD MICROBIOLOGY - GENER AL ORDERABLES [facility] * Tissue culture (05/26/2014 5:30 PM EST) Tissue Culture ? Patient Name: TANA SHELTON ? Ordered By: Freddy BURCIAGA ? MR#: [id number] ?LOC: ??[place] ? /Sex: ??1995 (18 years), [...] S ? Patient: TANA SHELTON ? MR#: [id number] ? S=Susceptible ??I=Intermediate ??R=Resistant ??NA=Not Applicable ? DDS=Dose dependent-suscept ible ??NS=Non-suscepti ble ? LINDA KEMPIUM Structure of back of trunk (body structure) 05/26/2014 5:30 PM EST 05/26/2014 5:41 PM EST Comment:LUMBAR Narrative Resulting Agency Comment Spec In Lab S Alek Burcaiga MD MICROBIOLOGY - GENER AL ORDERABLES [facility]DA BASHIR * Anaerobic Culture (05/26/2014 5:30 PM EST) Anaerobic Culture ? Patient Name: TANA SHELTON ? Ordered By: Freddy BURCIAGA ? MR#: [id number] ?LOC: ??PA ? /Sex: ??1995 (18 years), ? Female ? PROCEDURE: Anaerobic Culture ?SOURCE: Other ? COLLECTED: 05/26/2014 17:30 ?FREE TEXT SOURCE: Anterior Flank ? STARTED: 05/26/2014 17:41 ? FINAL REPORT ? Final Report ? Verified:2014 12:54 ? No anaerobic organisms isolated ? PRELIMINARY REPORT ? Preliminary Report ? Verified:2014 12:08 ? No anaerobic organisms isolated to date ? LINDA TOMASENNIUM Specimen of unknown material (specimen) 05/26/2014 5:30 PM EST 05/26/2014 5:41 PM EST Comment:ANTERIOR FLANK Narrative Resulting Agency Comment Spec In Lab Freddy Burciaga MD MICROBIOLOGY - GENER AL ORDERABLES [facility]DA BASHIR * Tissue culture (05/26/2014 5:30 PM EST) Tissue Culture ? Patient Name: TANA SHELTON ? Ordered By: Freddy BURCIAGA ? MR#: [id number] ?LOC: ??[place] ? /Sex: ??1995 (18 years), [...] plates. ? Patient: TANA SHELTON ? MR#: [id number] ? SUSCEPTIBILITY RESULTS ? Coagulase negative Staphylococcus [...] (1) ? Gentamicin is not appropriate for Josephine-therapy. ? (2) ? Penicillin resistant, Nafcillin susceptible [...] MD MICROBIOLOGY - GENER AL ORDERABLES LINDA BSAHIR * Anaerobic Culture (05/26/2014 5:30 PM EST) Anaerobic Culture ? Patient Name: TANA SHELTON ? Ordered By: Freddy BURCIAGA ? MR#: [id number] ?LOC: ??PA ? /Sex: ??1995 (18 years), [...] ? Ordered By: Freddy BURCIAGA ? MR#: [id number] ?LOC: ??[place] ? /Sex: ??1995 (18 years), [...] AL ORDERABLES Performing Organization Address City/[facility]/ZIP Co de Phone Number [facility] * Antibody screen (05/26/2014 12:40 PM EST) Ab Screen Interp Negative [facility] Expires at [id number] on: [id number] [facility] KRYSTEN Blood specimen (specimen) 05/26/2014 12:40 PM EST 05/26/2014 12:59 PM EST Narrative Resulting Agency Comment Spec In Lab S Alek Burciaga MD BLOOD BANK LAB ORDER MYRANDA Performing Organization Address [facility] Co de Phone Number [facility] * ABO/Rh Typing (05/26/2014 12:40 PM EST) ABORH Type O Pos [facility] Blood specimen (specimen) 05/26/2014 12:40 PM EST 05/26/2014 12:59 PM EST Narrative Resulting Agency Comment Spec In Lab S Alek Burciaga MD BLOOD BANK LAB ORDER MYRANDA Performing Organization Address [facility] Co de Phone Number [facility] * CT abdomen & pelvis WO contrast [...] prior fragment retrieval. S Alek Burciaga MD [facility] CT ORDERABLES * CT lumbar spine reconstruction [...] MD HEMATOLOGY ORDERABLE S Performing Organization Address [facility] Co de Phone Number CERNER MILLENNIUM * (ABNORMAL) Hemogram (05/26/2014 4:15 [...] Lab Freddy Burciaga MD HEMATOLOGY ORDERABLE S CERNER MILLENNIUM * (ABNORMAL) Basic Metabolic Panel (non-fasting) (05/26/2014 4:15 AM EST) Glucose Lvl 88 60 - 199 mg/dL CERNER MILLENNIUM Comment:Diabetes: >=200 mg/d L plus symptoms BUN 6(L) 8 - 18 mg/dL CERNER MILLENNIUM Creatinine 0.28(L) 0.70 - 1.20 mg/dL CERNER MILLENNIUM Comment: Please note that the pediatric reference intervals supplied above were not validated at [facility]. Results from pediatric patients should be interpreted [...] the following links into your internet browser. http://[employer]DHnkdep [email or web address]://[employer]DHMCnkf Blood specimen (specimen) 05/26/2014 4:15 AM EST 05/26/2014 4:35 AM EST Narrative Resulting Agency Comment Spec In Lab S Alek Burciaga MD CHEMISTRY ORDERABLES [facility] BASHIR * Place PICC Line: Contact Vascular Access Page [phone] (05/25/2014 4:01 PM EST) Narrative [place] [...] to the planned procedure. Hand Hygiene: The tour manager did perform hand hygiene prior to line insertion. Catheter type: PICC Lot number: [id number] Procedure Technique: Skin was prepped with chlorhexidine. [...] focal. COMPARISON: Scoliosis radiographs from 12/16/2011 FINDINGS: Water Pollution Specialist views demonstrate severe rightward scoliotic deformity centered [...] No gross collections in the cervical spine. Water Pollution Specialist coronal image 8 of series 8 demonstrates [...] inf,focal. COMPARISON: Scoliosis radiographs from 12/16/2011 FINDINGS: Water Pollution Specialist views demonstrate severe rightward scoliotic deformity centered [...] abnormalities. No grosscollections in the cervical spine. Water Pollution Specialist coronal image 8 of series 8 demonstrates [...] by the attending S Alek Burciaga MD IM MRI ORDERABLES * MRI thoracic spine without contrast (05/25/2014 1:26 PM EST) Anatomical Region Laterality Modality T-spine Magnetic Resonan ce 05/25/2014 1:26 PM EST Narrative 05/25/2014 4:10 PM EST See accession #[id number] for dictation of this study. This report was reviewed by Andrade Rebolledo MD at 05/25/2014 4:05 PM Film and interpretation reviewed by the attending Procedure Note Andrade Roth MD - 05/25/2014 See accession #[id number] for dictation of this study. This report was reviewed by Andrade Rebolledo MD at 05/25/2014 4:05 PM Film and interpretation reviewed by the attending Alek Sinha GOLD LEAF LAYER IMG MRI ORDERABLES * Differential, Automated (05/25/2014 [...] MD HEMATOLOGY ORDERABLE S Performing Organization Address [facility]/ZIP Co de Phone Number LINDA KEMPIUM * (ABNORMAL) Hemogram (05/25/2014 5:00 AM EST) [...] MD HEMATOLOGY ORDERABLE S Performing Organization Address [facility] Co de Phone Number CERALIN BASHIR * (ABNORMAL) Basic Metabolic Panel (non-fasting) (05/25/2014 5:00 AM EST) Glucose Lvl 87 60 - 199 mg/dL CERNER MILLENNIUM Comment:Diabetes: >=200 mg/d L plus symptoms BUN 6(L) 8 - 18 mg/dL CERNER MILLENNIUM Creatinine 0.27(L) 0.70 - 1.20 mg/dL CERNER MILLENNIUM Comment: Please note that the pediatric reference intervals supplied above were not validated at [facility]. Results from pediatric patients should be interpreted [...] the following links into your internet browser. http://[employer]DHnkdep http://[employer]DHMCnkf Blood specimen (specimen) 05/25/2014 5:00 AM EST [...] intervals supplied above were not validated at [facility]. Results from pediatric patients should be interpreted [...] the following links into your internet browser. http://[employer]nkdep [email or web address]://[employer]DHMCnkf Blood specimen (specimen) 05/24/2014 12:42 PM EST 05/24/2014 12:42 PM EST Narrative Resulting Agency Comment Spec In Lab Freddy Burciaga MD CHEMISTRY ORDERABLES Performing Organization Address [facility] de Phone Number [facility] * Vancomycin, trough (05/24/2014 12:29 PM EST) [...] Burciaga MD CHEMISTRY ORDERABLES Performing Organization Address [facility] Phone Number CERALIN BASHIR * (ABNORMAL) Electrolytes panel (05/23/2014 12:30 [...] Burciaga MD CHEMISTRY ORDERABLES Performing Organization Address [facility] de Phone Number CERALIN TOMASENNIUM * (ABNORMAL) Electrolytes panel (05/22/2014 6:20 PM [...] Burciaga MD CHEMISTRY ORDERABLES Performing Organization Address [facility] de Phone Number CERNER THOMENNIUM * (ABNORMAL) Phosphorus (05/22/2014 12:45 PM EST) Phosphorus 2.2(L) 2.5 - 4.5 mg/dL CERNER MILLENNIUM Blood specimen (specimen) Venous Draw / Unknown 05/22/2014 12:45 PM EST 05/22/2014 1:03 PM EST Narrative Resulting Agency Comment Spec In Lab Lucho Smith MD CHEMISTRY ORDERABLES Performing Organization Address City/[facility] Co de Phone Number CERNER MILLENNIUM * Magnesium (05/22/2014 12:45 PM EST) Magnesium 0.69 0.69 - 1.07 mmol/L CERNER MILLENNIUM Blood specimen (specimen) Venous Draw / Unknown 05/22/2014 12:45 PM EST 05/22/2014 1:03 PM EST Narrative Resulting Agency Comment Spec In Lab Lucho Smith MD CHEMISTRY ORDERABLES Performing Organization Address [facility] de Phone Number CERALIN KEMPIUM * Lipase (05/22/2014 12:45 PM EST) Lipase 44 0 - 60 unit/L CERNER MILLENNIUM Blood specimen (specimen) 05/22/2014 12:45 PM EST 05/22/2014 1:03 PM EST Narrative Resulting Agency Comment Spec In Lab Lucho Smith MD CHEMISTRY ORDERABLES Performing Organization Address [facility] Phone Number LINDA TOMASENNIUM * Amylase (05/22/2014 12:45 PM EST) Pathologist [facility] Amylase 89 28 - 100 unit/L CERNER MILLENNIUM Blood specimen (specimen) 05/22/2014 12:45 PM EST 05/22/2014 1:03 PM EST Narrative Resulting Agency Comment Spec In Lab Lucho Smith MD CHEMISTRY ORDERABLES Performing Organization Address [facility] Phone Number CERALIN KEMPIUM * (ABNORMAL) Comprehensive metabolic panel (non-fasting) (05/22/2014 12:45 PM EST) Pathologist [facility] Glucose Lvl 81 60 - 199 mg/dL CERNER MILLENNIUM Comment:Diabetes: >=200 mg/d L plus symptoms BUN 2(L) 8 - 18 mg/dL CERNER MILLENNIUM Creatinine 0.31(L) 0.70 - 1.20 mg/dL CERNER MILLENNIUM Comment: Please note that the pediatric reference intervals supplied above were not validated at [facility]. Results from pediatric patients should be interpreted [...] the following links into your internet browser. http://[employer]DHnkdep http://[employer]DHMCnkf Blood specimen (specimen) 05/22/2014 12:45 PM EST 05/22/2014 1:03 PM EST Narrative Resulting Agency Comment Spec In Lab Lucoh Smith MD CHEMISTRY ORDERABLES CERNER MILLENNIUM * [...] MD HEMATOLOGY ORDERABLE S CERNER THOMENNIUM * Hemogram (05/22/2014 6:10 AM EST) WBC [...] MD HEMATOLOGY ORDERABLE S Performing Organization Address [facility] de Phone Number [facility] * Vancomycin, trough (05/22/2014 6:10 AM EST) [...] Burciaga MD CHEMISTRY ORDERABLES Performing Organization Address [facility] Phone Number [facility] * (ABNORMAL) Basic Metabolic Panel (non-fasting) (05/22/2014 6:10 AM EST) Glucose Lvl 86 60 - 199 mg/dL CERNER MILLENNIUM Comment:Diabetes: >=200 mg/d L plus symptoms BUN 3(L) 8 - 18 mg/dL CERNER MILLENNIUM Creatinine 0.27(L) 0.70 - 1.20 mg/dL CERNER MILLENNIUM Comment: Please note that the pediatric reference intervals supplied above were not validated at [facility]. Results from pediatric patients should be interpreted in conjunction to the patient's age, height and muscle mass. Sodium 141 135 - 145 mmol/L [facility] MILLENNIUM Potassium 2.9(Criti dean) 3.5 - [...] the following links into your internet browser. http://[employer]DHnkdep [email or web address]://[employer]DHMCnkf Blood specimen (specimen) 05/22/2014 6:10 AM EST [...] Resulting Agency Comment Spec In Lab S lAek Burciaga MD HEMATOLOGY ORDERABLE S [facility] MILLENNIUM [...] intervals supplied above were not validated at [facility]. Results from pediatric patients should be interpreted [...] the following links into your internet browser. [email or web address]/[email or web address] [email or web address]://[employer]DHMCnkf Blood specimen (specimen) 05/21/2014 4:23 AM EST 05/21/2014 4:38 AM EST Narrative Resulting Agency Comment Spec In Lab Freddy Burciaga MD CHEMISTRY ORDERABLES [facility] * Crusher Loader Equipment Operator Culture (05/20/2014 10:01 PM EST) Crusher Loader Equipment Operator Culture ? Patient Name: TANA SHELTON ? Ordered By: Freddy BURCIAGA ? MR#: [id number] ?LOC: ??[place] ? /Sex: ??1995 (18 years), ? Female ? PROCEDURE: Crusher Loader Equipment Operator Culture ?SOURCE: Other ? COLLECTED: 05/20/2014 22:01 [...] ? Ordered By: Freddy BURCIAGA ? MR#: [id number] ?LOC: ??[place] ? /Sex: ??1995 (18 years), [...] MD MICROBIOLOGY - GENER AL ORDERABLES [facility] * Tissue culture (05/20/2014 9:25 PM EST) Tissue Culture ? Patient Name: TANA SHELTON ? Ordered By: Freddy BURCIAGA ? MR#: [id number] ?LOC: ??[place] ? /Sex: ??1995 (18 years), [...] ? Patient: TANA SHELTON S ? MR#: [id number] ? S=Susceptible ??I=Intermediate ??R=Resistant ??NA=Not Applicable ? DDS=Dose dependent-suscept ible ??NS=Non-suscepti ble ? LINDA MILLENNIUM Structure of back of trunk (body structure) 05/20/2014 9:25 PM EST 05/20/2014 10:12 PM EST Comment:LUMBAR WOUND CULTURE #2 Narrative Resulting Agency Comment Spec In Lab Freddy Burciaga MD MICROBIOLOGY - GENER AL ORDERABLES [facility]DA BASHIR * Anaerobic Culture (05/20/2014 8:20 PM EST) Anaerobic Culture ? Patient Name: TANA SHELTON ? Ordered By: Freddy BURCIAGA ? MR#: [id number] ?LOC: ??[place] ? /Sex: ??1995 (18 years), [...] ? Ordered By: Freddy BURCIAGA ? MR#: [id number] ?LOC: ??[place] ? /Sex: ??1995 (18 years), [...] ? Ordered By: BELKIS LOUIE ? MR#: [id number] ?LOC: ??[place] ? /Sex: ??1995 (18 years), [...] Louie MD MICROBIOLOGY - GENER AL ORDERABLES [facility] * (ABNORMAL) Urinalysis with microscopic (05/20/2014 6:46 [...] Appearance UA Hazy(A) Clear CERNER MILLENNIUM Spec Roy UA 1.026 1.002 - 1.030 CERNER MILLENNIUM [...] In Lab Belkis Louie MD URINE ORDERABLES CERALIN TOMASENNIUM * L-Lactate2 Whole Blood (05/20/2014 6:17 PM EST) Lactate WB 1.6 0.5 - 2.2 mmol/L LINDA BASHIR Blood specimen (specimen) 05/20/2014 6:17 PM EST 05/20/2014 6:17 PM EST Belkis Louie MD CHEMISTRY ORDERABLES [facility] * Blood culture (05/20/2014 6:00 PM EST) Blood Culture ? Patient Name: TANA SHELTON ? Ordered By: BELKIS LOUIE ? MR#: [id number] ?LOC: ??[place] ? /Sex: ??1995 (18 years), [...] Belkis Louie MD MICROBIOLOGY - BLOOD ORDERABLES CERALIN TOMASENNIUM * Green Tube HOLD (05/20/2014 5:15 PM EST) Green Hold Sample in lab. CERNER THOMENNIUM Blood specimen (specimen) Venous Draw / Unknown 05/20/2014 5:15 PM EST 05/20/2014 5:32 PM EST Belkis Louie MD CHEMISTRY ORDERABLES [facility] TOMAS[facility] * Differential, Automated (05/20/2014 5:15 PM EST) [...] ORDERABLE S Performing Organization Address City/[facility] Co de Phone Number CERNER MILLENNIUM [...] ORDERABLE S Performing Organization Address City/[facility] Co de Phone Number CERALIN TOMASENNIUM * Blood culture (05/20/2014 5:15 PM EST) Blood Culture ? Patient Name: TANA SHELTON ? Ordered By: BELKIS LOUIE ? MR#: [id number] ?LOC: ??[place] ? /Sex: ??1995 (18 years), [...] ? No growth at 4 days. ? [facility] Blood specimen (specimen) STRUCTURE OF LEFT HAND / Unknown 05/20/2014 5:15 PM EST 05/20/2014 7:17 PM EST Comment:HOLD UNTIL MD HULL Narrative Resulting Agency Comment Spec In Lab Belkis Louie MD MICROBIOLOGY - BLOOD ORDERABLES [facility] * Glucose, random (05/20/2014 5:15 PM EST) Glucose Lvl 81 60 - 199 mg/dL [facility] Comment:Diabetes: >=200 mg/d L plus symptoms Blood specimen (specimen) 05/20/2014 5:15 PM EST 05/20/2014 5:31 PM EST Narrative Resulting Agency Comment Spec In Lab Belkis Louie MD CHEMISTRY ORDERABLES Performing Organization Address [facility] Co de Phone Number [facility] * (ABNORMAL) Creatinine (05/20/2014 5:15 PM EST) Creatinine 0.37(L) 0.70 - 1.20 mg/dL [facility] Comment: Please note that the pediatric reference intervals supplied above were not validated at [facility]. Results from pediatric patients should be interpreted in conjunction to the patient's age, height and muscle mass. Estimated GFR >60 >=60 [facility] Comment: This estimated GFR (eGFR) value [...] the following links into your internet browser. [email or web address] Blood specimen (specimen) 05/20/2014 5:15 PM EST 05/20/2014 5:31 PM EST Narrative Resulting Agency Comment Spec In Lab Belkis Louie MD CHEMISTRY ORDERABLES Performing Organization Address [facility] de Phone Number [facility] * BUN (05/20/2014 5:15 PM EST) BUN 9 8 - 18 mg/dL [facility] Blood specimen (specimen) 05/20/2014 5:15 PM EST 05/20/2014 5:31 PM EST Narrative Resulting Agency Comment Spec In Lab Belkis Louie MD CHEMISTRY ORDERABLES Performing Organization Address [facility]/ZIP Co de Phone Number LINDA BASHIR * [...] Nely Boss, Indication for (Active or Suspected): 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
--- OUTSIDE RECORDS SUMMARY | 2023-11-16 17:02 | XMS_ITS | Encounter Summary ---
Author Organization [facility] [place] [address] Care Team Providers Care Lab Tech Name Role Phone Naina Lindsey MD Primary Care Provider [phone] Encounter Details Date Type Department Care Team (Late st Contact Info) Description 05/03/2014 Unscheduled Encounter [place] [address] Alek Sinha, DOGMAN/WOMAN [facility] [place] [address] Spasticity Social History Tobacco Use Types Packs/Day [...] her tone. She [place] [facility] [place] Barron Dotson who has weaned the [...] TH Visit (TeleHealth) [place] [address] Lilli Joy [place] [address] 12/03/2023 12:30 PM EDT Office Visit Infectious Disease at [place] [phone] [facility] [address] 12/03/2023 2:30 PM EDT Appointment Radiology at [place] [phone] [facility] [place] [address] documented as of this encounter Visit Diagnoses Diagnosis Spasticity Abnormal involuntary movements documented in this encounter Care Teams Lab Tech Relationship Specialty Start Date End Date Naina Lindsey MD [address] [place] [address] [place] [address] PCP - General 03/19/10 08/25/16 documented as of this encounter
--- OUTSIDE RECORDS SUMMARY | 2023-11-16 17:02 | XMS_ITS | Encounter Summary ---
Author Organization [facility] Address [facility] [address] Care Team Providers Care Fur Examiner Name Role Phone Naina Lindsey MD Primary Care Provider [phone] Reason for Visit * Reason Comments Follow-up PRE-SURGERY QUESTION S Encounter Details Date Type Department Care Team (Late st Contact Info) Description 05/03/2014 3:00 PM EST Follow-[place] [address] Jamaal Samuel MD [facility] [place] [address] Presence of intrathecal baclofen pump Discharge Disposition: [...] pump placed for increased extremity tone at [facility] in 2007 but mom believes the [...] TH Visit (TeleHealth) [place] [address] Lilli Joy APRN [facility] [place] [address] 12/03/2023 12:30 PM EDT Office [place] [address] Hollie Ambriz MD [facility] [place] [address] 12/03/2023 2:30 PM EDT Appoint[place] [phone] Andrade Melvin MD [facility] [place] [address] documented as of this encounter Visit Diagnoses Diagnosis Presence of intrathecal baclofen pump documented in this encounter Care Teams Fur Examiner Relationship Specialty Start Date End Date Naina Lindsey MD [address] [place] [address] [place] [address] PCP - General 03/19/10 08/25/16 documented as of this encounter
--- OUTSIDE RECORDS SUMMARY | 2023-11-16 17:02 | XMS_ITS | Encounter Summary ---
[place] [address] Care Team Providers Care Nail Cutter Name Role Phone Naina Lindsey MD Primary Care Provider [phone] Encounter Details Date Type Department Care Team (Latest Contact Info) Description 03/29/2014 4:15 PM EST Procedure visit [place] [phone] Donnell Dotson MD [facility] [place] [place] [address] Traumatic brain injury, subsequent encounter; Abnormal involuntary [...] would be in order. Donnell Dotson MD Community Administrator of Anesthesiology Pain Management Center [facility] documented in this encounter Plan of Treatment Upcoming Encounters Date Type Department Care Team (Late st Contact Info) Description 11/19/2023 2:30 PM EDT TH Visit (TeleHealth) [place] [address] Lilli Joy APRN [facility] [place] [address] 12/03/2023 12:30 PM EDT Office [place] [address] Hollie Ambriz MD [facility] [place] [address] 12/03/2023 2:30 PM EDT Appointment Radiology at [facility] [place] [phone] Andrade Melvin MD [facility] [place] [address] documented as of this encounter Procedures Procedure [...] would be in order. Donnell Dotson MD Community Administrator of Anesthesiology Pain Management Center [facility] Donnell Dotson MD PROCEDURE/MINOR SURG ICAL ORDERABLES documented in this encounter Visit Diagnoses Diagnosis Traumatic brain injury, subsequent encounter Abnormal involuntary movements(781.0) Abnormal involuntary movements documented in this encounter Care Teams Nail Cutter Relationship Specialty Start Date End Date Naina Lindsey MD [address] [place] [address] [address] [facility] [address] PCP - General 03/19/10 08/25/16 documented as of this encounter
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
--- OUTSIDE RECORDS SUMMARY | 2023-11-16 17:03 | XMS_ITS | Encounter Summary ---
Author Organization [facility] [place] [address] Care Team Providers Care Lead Developer Name Role Phone Naina Lindsey MD Primary Care Provider [phone] Encounter Details Date Type Department Care Team (Late st Contact Info) Description 07/12/2012 Telephone [place] [phone] Aniket Heredia MD [facility] [place] [address] Social History Tobacco Use Types Packs/Day Years [...] EDT TH Visit (TeleHealth) Infectious Disease at [place] [address] Lilli Joy APRN [facility] [place] [address] 12/03/2023 12:30 PM EDT Office Visit Infectious Disease at [place] [address] Hollie Ambriz MD [facility] [place] [address] 12/03/2023 2:30 PM EDT Appointment [place] [address] Andrade Melvin MD [facility] [place] [address] documented as of this encounter Visit Diagnoses Not on filedocumented in this encounter Care Teams Lead Developer Relationship Specialty Start Date End Date Naina Lindsey MD [address] [place] [address] [place] [address] PCP - General 03/19/10 08/25/16 documented as of this encounter
--- OUTSIDE RECORDS SUMMARY | 2023-11-16 17:03 | XMS_ITS | Encounter Summary ---
Author Organization [facility] [place] [address] Care Team Providers Care Assembler Billiard Table Name Role Phone Naina Lindsey MD Primary Care Provider [phone] Reason for Visit * Reason Onset Date Comments Medication Refill 11/08/2013 Encounter Details Date Type Department Care Team (Late st Contact Info) Description 11/08/2013 Refill [place] [address] Aida Carey, CODING FILE CLERK Social History Tobacco Use Types Packs/Day Years [...] EDT TH Visit (TeleHealth) [place] [address] Lilli Joy, [place] [address] 12/03/2023 12:30 PM EDT Office Visit [place] [address] Hollie Ambriz MD [facility] [place] [address] 12/03/2023 2:30 PM EDT Appointment [place] [address] Andrade Melvin MD [facility] [place] [address] documented as of this encounter Visit Diagnoses Not on filedocumented in this encounter Care Teams Assembler Billiard Table Relationship Specialty Start Date End Date Naina [place] [address] PCP - General 03/19/10 08/25/16 documented as of this encounter
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
--- OUTSIDE RECORDS SUMMARY | 2023-11-16 17:03 | XMS_ITS | Encounter Summary ---
[place] [address] Care Team Providers Care Rn Or Lvn Name Role Phone Naina Lindsey MD Primary Care Provider [phone] Encounter Details Date Type Department Care Team (Late st Contact Info) Description 08/01/2012 Notes [place] [address] Chelsea Alva RN Social History Tobacco Use [...] EDT TH Visit (TeleHealth) Infectious Disease at [place] [address] [facility] [place] [address] 12/03/2023 12:30 PM EDT Office Visit Infectious Disease at [address] Hollie Ambriz MD [facility] [place] [address] 12/03/2023 2:30 PM EDT [place] [address] Andrade Melvin MD [facility] [place] [address] documented as of this encounter Visit Diagnoses Not on filedocumented in this encounter Care Teams Rn Or Lvn Relationship Specialty Start Date End Date Naina Lindsey MD [address] [place] [address] [place] [address] PCP - General 03/19/10 08/25/16 documented as of this encounter
--- OUTSIDE RECORDS SUMMARY | 2023-11-16 17:03 | XMS_ITS | Encounter Summary ---
[place] [address] Care Team Providers Care Mercury Cell Cleaner Name Role Phone Naina Lindsey MD Primary Care Provider [phone] Reason for Visit * Reason Comments Pain Encounter Details Date Type Department Care Team (Latest Contact Info) Description 01/25/2014 4:00 PM EDT Procedure [place] [phone] [facility] [place] [address] Traumatic brain injury, subsequent encounter (Primary Dx) [...] Pump Reprogramming Only Procedure Note Tana Cavazos [id number] Date of Refill: January 25, 2014 Primary Plastic Sewer: KAREN EARLY DO Chain Mender: Donnell Dotson MD Reason for Reprogramming: NA 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 Prior to this surgery the patient had [...] available to conference the patient's physicians at [facility] as this decision is made. The mother will contact the orthopedic surgeon who performed the procedure to get his input as to whether he feels the baclofen has been helping. She will also request referral to a pediatric physiatry doctor at [facility] and will contact us back with her [...] EDT TH Visit (TeleHealth) [place] [address] Lilli Joy APRN [facility] [place] [address] 12/03/2023 12:30 PM EDT Office [place] [address] Hollie Ambriz MD [facility] [place] [address] 12/03/2023 2:30 PM EDT [place] [address] Andrade Melvin MD [facility] [place] [address] documented as of this encounter Visit Diagnoses Diagnosis Traumatic brain injury, subsequent encounter- Primary documented in this encounter Care Teams Mercury Cell Cleaner Relationship Specialty Start Date End Date Naina Lindsey MD [address] [place] [address] [place] [address] PCP - General 03/19/10 08/25/16 documented as of this encounter
--- OUTSIDE RECORDS SUMMARY | 2023-11-16 17:03 | XMS_ITS | Encounter Summary ---
Author Organization [facility] [place] [address] Care Team Providers Care Clinical Nurse Educator Name Role Phone Naina Lindsey MD Primary Care Provider [phone] Reason for Visit * Reason Onset Date Comments Other 11/11/2010 WANTED NOTES FRO M SURG Encounter Details Date Type Department Care Team (Late st Contact Info) Description 11/11/2010 Telephone [place] [phone] Yas Ramirez MD [facility] [place] [address] Other (WANTED NOTES FROM SURG) Social History [...] EDT TH Visit (TeleHealth) Infectious Disease at [place] [address] [address] [facility] [place] [address] 12/03/2023 12:30 PM EDT Office Visit Infectious Disease at [address] Hollie Ambriz MD [facility] [place] [address] 12/03/2023 2:30 PM EDT [place] [address] Andrade Melvin MD [facility] [place] [address] documented as of this encounter Visit Diagnoses Not on filedocumented in this encounter Care Teams Clinical Nurse Educator Relationship Specialty Start Date End Date Naina Lindsey MD [address] [place] [address] [place] [address] PCP - General 03/19/10 08/25/16 documented as of this encounter
--- OUTSIDE RECORDS SUMMARY | 2023-11-16 17:03 | XMS_ITS | Encounter Summary ---
Author Organization [facility] [place] [address] Care Team Providers Care Consumer Loan Underwriter Name Role Phone Naina Lindsey MD Primary Care Provider [phone] Reason for Visit * Reason Comments Pain Management Encounter Details Date Type Department Care Team (Latest Contact Info) Description 02/28/2014 4:30 PM EST Procedure [place] [phone] Donnell Dotson MD [facility] [place] [address] Karen Early [facility] [place] [address] Traumatic brain injury, sequela (Primary Dx) Discharge [...] 02/28/2014 4:58 PM EST Tana Cavazos 02/28/2014 [id number] Intrathecal Pump Visit Tana Cavazos presents today [...] EDT TH Visit (TeleHealth) Infectious Disease at [address] Lilli Joy [facility]N [facility] [place] [address] 12/03/2023 12:30 PM EDT Office Visit Infectious Disease at [place] [address] Hollie Ambriz MD [facility] [place] [address] 12/03/2023 2:30 PM EDT Appointment Radiology at [place] [address] Andrade Melvin MD [facility] [place] [address] documented as of this encounter Visit Diagnoses Diagnosis Traumatic brain injury, sequela- Primary documented in this encounter Care Teams Consumer Loan Underwriter Relationship Specialty Start Date End Date Naina Lindsey MD [address] [place] [address] [place] [address] PCP - General 03/19/10 08/25/16 documented as of this encounter
--- OUTSIDE RECORDS SUMMARY | 2023-11-16 17:03 | XMS_ITS | Encounter Summary ---
Author Organization [facility] [place] [address] Care Team Providers Care Home Theater Expert Name Role Phone Naina Lindsey MD Primary Care Provider [phone] Encounter Details Date Type Department Care Team (Late st Contact Info) Description 12/22/2012 Orders [place] [address] Christiano Floyd MD [facility] [place] [address] Social History Tobacco Use Types Packs/Day Years [...] EDT TH Visit (TeleHealth[place] [address] Lilli Joy APRN [facility] [place] [address] 12/03/2023 12:30 PM EDT Office [place] [address] Hollie Ambriz MD [facility] [place] [address] 12/03/2023 2:30 PM ED[place] [address] Andrade Melvin MD [facility] [place] [address] documented as of this encounter Visit Diagnoses Not on filedocumented in this encounter Care Teams Home Theater Expert Relationship Specialty Start Date End Date Naina Lindsey MD [address] [place] [address] PCP - General 03/19/10 08/25/16 documented as of this encounter
--- OUTSIDE RECORDS SUMMARY | 2023-11-16 17:03 | XMS_ITS | Encounter Summary ---
Author Organization [facility] [place] [address] Care Team Providers Care Broadcast Program Director Name Role Phone Naina Lindsey MD Primary Care Provider [phone] Encounter Details Date Type Department Care Team (Late st Contact Info) Description 07/12/2012 Telephone [place] [phone] Aniket Heredia MD [facility] [place] [place] [address] Social History Tobacco Use Types Packs/Day Years [...] her child evaluated in the ED at [facility] over the weekend and today again at her jail guard's office. She reports that Tana seems to [...] this plan. Aniket Heredia MD Pain fellow [facility] documented in this encounter Plan of Treatment Upcoming Encounters Date Type Department Care Team (Late st Contact Info) Description 11/19/2023 2:30 PM EDT TH Visit (TeleHealth) Infectious Disease at [place] [address] [facility] [place] [address] 12/03/2023 12:30 PM EDT Office Visit Infectious Disease at [place] [address] Hollie Ambriz MD [facility] DR INFECT[place] [address] 12/03/2023 2:30 PM EDT Appointment Radiology at [place] [address] Andrade Melvin MD [facility] DIAGNOST[place] [address] documented as of this encounter Visit Diagnoses Not on filedocumented in this encounter Care Teams Broadcast Program Director Relationship Specialty Start Date End Date Naina [place] [address] PCP - General 03/19/10 08/25/16 documented as of this encounter
--- OUTSIDE RECORDS SUMMARY | 2023-11-16 17:03 | XMS_ITS | Encounter Summary ---
[place] [address] Care Team Providers Care Instructional Systems Specialist Name Role Phone Naina Lindsey MD Primary Care Provider [phone] Reason for Visit * Reason Onset Date Comments Other 03/14/2011 Encounter Details Date Type Department Care Team (Late st Contact Info) Description 03/14/2011 [place] [address] Mony Fierro RN Other Social History Tobacco [...] this also with Bart Denis PT from [place] [facility] who has been unable to find a creative way to avoid this with her seating. Discussed with Dr. Ramirez who will evaluate at her appointment on 03/31. documented in this encounter Plan of Treatment Upcoming Encounters Date Type Department Care Team (Late st Contact Info) Description 11/19/2023 2:30 PM EDT TH Visit (TeleHealth) [place] [address] Lilli Joy APRN [facility] [place] [address] 12/03/2023 12:30 PM EDT Office [place] [address] Hollie Ambriz MD [facility] INFECTI[place] [address] 12/03/2023 2:30 PM EDT [place] [address] Andrade Melvin MD [facility] DIAGNOSTIC [place] [address] documented as of this encounter Visit Diagnoses Not on filedocumented in this encounter Care Teams Instructional Systems Specialist Relationship Specialty Start Date End Date Naina Lindsey [place] [address] PCP - General 03/19/10 08/25/16 documented as of this encounter
--- OUTSIDE RECORDS SUMMARY | 2023-11-16 17:03 | XMS_ITS | Encounter Summary ---
Author Organization [facility] [place] [address] Care Team Providers Care Contact Lens Curve Grinder Name Role Phone Naina Lindsey MD Primary Care Provider [phone] Encounter Details Date Type Department Care Team (Late st Contact Info) Description 03/03/2014 External Results [place] [address] Donnell Dotson MD [facility] [place] [address] Social History Tobacco Use Types Packs/Day Years [...] EDT TH Visit (TeleHealth) [place] [address] Lilli Joy APRN [facility] [place] [address] 12/03/2023 12:30 PM EDT Office Visit Infectious Disease at [place] [phone] Hollie Ambriz MD [facility] [place] [address] 12/03/2023 2:30 PM EDT [place]oint[place] [address] Andrade Melvin MD [facility] [place] [address] documented as of this encounter Procedures Procedure Name Priority Date/Time Associated Diagnosis Comments IMPLANTABLE DEVICES SCAN Routine 02/28/2014 8:00 AM EST IMPLANTABLE DEVICES SCAN Routine 02/15/2014 8:41 AM EDT IMPLANTABLE DEVICES SCAN Routine 02/09/2014 8:42 AM EDT IMPLANTABLE DEVICES SCAN Routine 01/25/2014 9:19 AM EDT documented in this encounter Visit Diagnoses Not on filedocumented in this encounter Care Teams Contact Lens Curve Grinder Relationship Specialty Start Date End Date Naina Lindsey MD [address] [place] [address] PCP - General 03/19/10 08/25/16 documented as of this encounter
--- OUTSIDE RECORDS SUMMARY | 2023-11-16 17:03 | XMS_ITS | Encounter Summary ---
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 Dotson Reason for Reprogramming: Pump alarm date approaching Diagnosis: Spacticity, traumatic head injury Telemetry Pre-programming Reading: Drug Concentration Daily Dose Baclofen 1,000 mcg/ ml 195.1 mcg/ day Telemetry Post-programming Reading: Drug Concentration Daily Dose Brand (B) or Compound (C) Lot number Baclofen 1,000 mcg/ ml 195.1 mcg/ day Compound #[id number] Simple Continuous Rx # [id number] Exp. 02/05/13 Pump Capacity: 40 ml Computer Predicted Residual Volume in Pump (ml): 4.5 ml Measured Residual volume in Pump (ml): 5.8 ml Medication or Dose Changes: no Is dose change > 30%? n/a Is concentration or drug different? no Empty syringe concentration verified by seam checker: yes If concentration or drug is [...] instilled into the pump according to the ncqa specialist's directions without difficulty. There was no evidence [...] EDT TH Visit (TeleHealth) [place] [address] Lilli Joy [place] [facility] [place] [address] 12/03/2023 12:30 PM EDT Office Visit [place] [address] Hollie Ambriz MD [facility] [place] [address] 12/03/2023 2:30 PM EDT Appointment Radiology at [facility] [place] [phone] Andrade Melvin MD [facility] [place] [address] documented as of this encounter Procedures Procedure [...] with Reprogramming Procedure Note Tana Cavazos ? [id number] Date of Refill: January 20, 2013 Primary See Wheeler: ASHKAN BRANTLEY APRN Furniture Installer: Dr. Dotson Reason for Reprogramming: ??Pump alarm date approaching Diagnosis: ??Spacticity, traumatic head injury Telemetry Pre-programming Reading: Drug Concentration Daily Dose Baclofen 1,000 mcg/ ml 195.1 mcg/ day ? Telemetry Post-programming Reading: ?? Drug Concentration Daily Dose Brand (B) or Compound (C) Lot number Baclofen 1,000 mcg/ ml 195.1 mcg/ day Compound #[id number] Simple Continuous ?? Rx # [id number] Exp. 02/05/13 ? Pump Capacity: ??40 ml Computer Predicted Residual Volume in Pump (ml): ??4.5 ml Measured Residual volume in Pump (ml): 5.8 ml Medication or Dose Changes: ?no Is dose change > 30%?n/a Is concentration or drug different? ??no Empty syringe concentration verified by seam checker: ?? yes If concentration or drug [...] drapes were applied as provided with the ??[employer] refill kit. A 22 gauge Persaud non-coring [...] instilled into the pump according to the ncqa specialist's directions without difficulty. There was no evidence [...] Pump with Reprogramming Procedure Note Tana Cavazos [id number] Date of Refill: January 20, 2013 Primary See Wheeler: ASHKAN BRANTLEY APRN Furniture Installer: Dr. Dotson Reason for Reprogramming: Pump alarm date approaching Diagnosis: Spacticity, traumatic head injury Telemetry Pre-programming Reading: Drug Concentration Daily Dose Baclofen 1,000 mcg/ ml 195.1 mcg/ day Telemetry Post-programming Reading: Drug Concentration Daily Dose Brand (B) or Compound (C) Lot number Baclofen 1,000 mcg/ ml 195.1 mcg/ day Compound #[id number] Simple Continuous Rx # [id number] Exp. 02/05/13 Pump Capacity: 40 ml Computer Predicted Residual Volume in Pump (ml): 4.5 ml Measured Residual volume in Pump (ml): 5.8 ml Medication or Dose Changes: no Is dose change > 30%? n/a Is concentration or drug different? no Empty syringe concentration verified by seam checker: yes If concentration or drug is [...] wasinstilled into the pump according to the ncqa specialist's directions withoutdifficulty. There was no evidence of [...] procedure well [facility] Follow-up appointments will be arranged for refills asappropriate. ASHKAN BRANTLEY, MICE RAISER Bigg Dunbar MD PROCEDURE/MINOR S URGICAL ORDERABLES [...] 1 each, Intrathecal, ONCE, 1 dose, On Dianen 01/20/13 at 1600, Routine, Medication Name and Dose: see procedure note Given 01/20/2013 3:32 PM EDT 1 each documented in this encounter Care Teams Set Up Mechanic Heading Machines Relationship Specialty Start Date End Date Naina Lindsey MD [address] [place] [address] PCP - General 03/19/10 08/25/16 documented as of this encounter
--- OUTSIDE RECORDS SUMMARY | 2023-11-16 17:03 | XMS_ITS | Encounter Summary ---
Author Organization [facility] [place] [address] Care Team Providers Care Mainspring Former Brace End Name Role Phone Naina Lindsey MD Primary Care Provider [phone] Encounter Details Date Type Department Care Team (Late st Contact Info) Description 07/08/2012 Orders [place] [address] Bigg Dunbar MD [facility] [place] [address] Spasticity (Primary Dx) Social History Tobacco Use [...] EDT TH Visit (TeleHealth) [place] [address] Lilli Joy APRN [facility] [place] [address] 12/03/2023 12:30 PM EDT Office Visit Infectious Disease at [place] [phone] Hollie Ambriz MD [facility] [place] [address] 12/03/2023 2:30 PM EDT [place] [address] Andrade Melvin MD [facility] [address] documented as of this encounter Visit Diagnoses Diagnosis Spasticity- Primary Abnormal involuntary movements documented in this encounter Care Teams Mainspring Former Brace End Relationship Specialty Start Date End Date Naina [place] [address] PCP - General 03/19/10 08/25/16 documented as of this encounter
--- OUTSIDE RECORDS SUMMARY | 2023-11-16 17:03 | XMS_ITS | Encounter Summary ---
Author Organization [facility] [place] [address] Care Team Providers Care Draw String Knotter Name Role Phone Naina Lindsey MD Primary Care Provider [phone] Encounter Details Date Type Department Care Team (Late st Contact Info) Description 11/07/2010 Orders Only [place] [address] Bigg Dunbar MD [facility] [place] [address] Spasticity (Primary Dx) Social History Tobacco Use [...] EDT TH Visit (TeleHealth) [place] [address] L[place] [address] 12/03/2023 12:30 PM EDT Office [place] [address] Hollie Ambriz MD [facility] [place] [address] 12/03/2023 2:30 PM EDT [place] [address] Andrade Melvin MD [facility] [place] [address] documented as of this encounter Visit Diagnoses Diagnosis Spasticity- Primary Abnormal involuntary movements documented in this encounter Care Teams Draw String Knotter Relationship Specialty Start Date End Date Naina Lindsey MD [address] [place] [address] PCP - General 03/19/10 08/25/16 documented as of this encounter
--- OUTSIDE RECORDS SUMMARY | 2023-11-16 17:03 | XMS_ITS | Encounter Summary ---
Author Organization [facility] [place] [address] Care Team Providers Care All Around Patternmaker Name Role Phone Naina Lindsey MD Primary Care Provider [phone] Encounter Details Date Type Department Care Team (Late st Contact Info) Description 01/05/2012 Orders Only [place] [address] Christiano Floyd MD [facility] [place] [place] [address] Spasticity (Primary Dx) Social History Tobacco Use [...] EDT TH Visit (TeleHealth) [place] [address] Lilli Joy APRN [place] [address] 12/03/2023 12:30 PM EDT Office Visit Infectious Disease at [place] [phone] Hollie Ambriz MD [facility] [place] [address] 12/03/2023 2:30 PM EDT Appointment [place] [address] Andrade Melvin MD [facility] [place] [address] documented as of this encounter Visit Diagnoses Diagnosis Spasticity- Primary Abnormal involuntary movements documented in this encounter Care Teams All Around Patternmaker Relationship Specialty Start Date End Date Naina [place] [address] PCP - General 03/19/10 08/25/16 documented as of this encounter
--- OUTSIDE RECORDS SUMMARY | 2023-11-16 17:03 | XMS_ITS | Encounter Summary ---
Author Organization [facility] Address [facility] [place] [address] Care Team Providers Care Paint Booth Operator Name Role Phone Naina Lindsey MD Primary Care Provider [phone] Reason for Referral * Consultation (Routine) - Closed Specialty Diagnoses / Procedures Referred By Contac t Referred To Contact Pediatric Neurosurgery Diagnoses Baclofen pump failure, initial encounter Donnell Dotson MD [facility] [place] [address] Jamaal Samuel MD [facility] [place] [address] Referral ID Status Reason Start Date Expiration Date V isits Requested Visits Authorized [id number] Closed Consult, Test & Treat 02/15/2014 08/14/2014 1 1 Encounter Details Date Type Department Care Team (Late st Contact Info) Description 02/15/2014 Orders [place] [address] Donnell Dotson MD [facility] [place] [phone] Baclofen pump failure, initial encounter Social History [...] EDT TH Visit (TeleHealth) Infectious Disease at [place] [address] Lilli Joy APRN [facility] [place] [address] 12/03/2023 12:30 PM EDT Office Visit Infectious Disease at [place] [address] Hollie Ambriz MD [facility] [place] [address] 12/03/2023 2:30 PM EDT Appointment Radiology at [place] [address] Andrade Melvni MD [facility] [place] [address] Scheduled Referrals Name Type Priority Associated Diagnoses Order Schedule Referral to Pediatric Neurosurgery Outpatient Referral Routine Baclofen pump failure, initial encounter Ordered: 02/15/2014 documented as of this encounter Visit Diagnoses Diagnosis Baclofen pump failure, initial encounter documented in this encounter Care Teams Paint Booth Operator Relationship Specialty Start Date End Date Naina [place] [address] PCP - General 03/19/10 08/25/16 documented as of this encounter
--- OUTSIDE RECORDS SUMMARY | 2023-11-16 17:03 | XMS_ITS | Encounter Summary ---
Author Organization [facility] [place] [address] Care Team Providers Care Director Of Tax Services Name Role Phone Naina Lindsey MD Primary Care Provider [phone] Reason for Visit * Reason Comments Bilateral Leg Pain CP Encounter Details Date Type Department Care Team (Late st Contact Info) Description 05/19/2011 10:40 AM EST Follow-[place] [phone] Yas Ramirez MD [facility] [place] [address] TBI (traumatic brain injury) (Primary Dx); Scoliosis; [...] Stable Plan: Discussed with mother that overall, Lizebth seems to be doing reasonably well. We [...] EDT TH Visit (TeleHealth) [place] [phone] Lilli Joy APRN [facility] [place] [address] 12/03/2023 12:30 PM EDT Office [place] [address] Hollie Ambriz MD [facility] [place] [address] 12/03/2023 2:30 PM EDT Appointment Radiology at [place] [phone] Andrade Melvin MD [facility] DR DIAGNOSTIC [place] [address] documented as of this encounter Results * [...] idiopathic documented in this encounter Care Teams Director Of Tax Services Relationship Specialty Start Date End Date Naina Lindsey MD [address] [place] [address] PCP - General 03/19/10 08/25/16 documented as of this encounter
--- OUTSIDE RECORDS SUMMARY | 2023-11-16 17:03 | XMS_ITS | Encounter Summary ---
[place] [address] Care Team Providers Care Interactive Developer Name Role Phone Naina Lindsey MD Primary Care Provider [phone] Encounter Details Date Type Department Care Team (Late st Contact Info) Description 12/17/2010 [place] [address] Mony Fierro, RN Social History [...] [place] [address] Lilli Joy APRN [facility] [place] [address] 12/03/2023 12:30 PM EDT Office Visit Infectious Disease at [place] [phone] Hollie Ambriz MD [facility] [place] [address] 12/03/2023 2:30 PM EDT [place] [address] Andrade Melvin MD [facility] [place] [address] documented as of this encounter Visit Diagnoses Not on filedocumented in this encounter Care Teams Interactive Developer Relationship Specialty Start Date End Date Naina Lindsey MD [address] [place] [address] [place] [address] PCP - General 03/19/10 08/25/16 documented as of this encounter
--- OUTSIDE RECORDS SUMMARY | 2023-11-16 17:03 | XMS_ITS | Encounter Summary ---
Author Organization [facility] Address [facility] [place] [address] Care Team Providers Care Seaming Machine Operator Name Role Phone Naina Lindsey MD Primary Care Provider [phone] Encounter Details Date Type Department Care Team (Late st Contact Info) Description 02/03/2011 Orders [place] [address] Yas Ramirez MD [facility] [place] [address] Acquired dysplasia of hip, bilateral; Scoliosis; Traumatic [...] EDT TH Visit (TeleHealth) [place] [address] Lilli Joy APRN [facility] [place] [address] 12/03/2023 12:30 PM EDT Office Visit Infectious Disease at [place] [phone] Hollie Ambriz MD [facility] [place] [address] 12/03/2023 2:30 PM EDT Appoint[place] [address] Andrade Melvin MD [facility] [place] [address] documented as of this encounter Visit Diagnoses Diagnosis Acquired dysplasia of hip, bilateral Other acquired deformities of hip Scoliosis Scoliosis (and kyphoscoliosis), idiopathic 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
--- OUTSIDE RECORDS SUMMARY | 2023-11-16 17:03 | XMS_ITS | Encounter Summary ---
Author Organization [facility] [place] [address] Care Team Providers Care Job Spotter Name Role Phone Naina Lindsey MD Primary Care Provider [phone] Encounter Details Date Type Department Care Team (Late st Contact Info) Description 03/10/2014 Orders [place] [phone] Alek Sinha [facility] [place] [address] Pre-op chest exam; Pre-op evaluation Social History [...] EDT TH Visit (TeleHealth) [place] [phone] Lilli Joy PICK UP TRUCK DRIVER [facility] [place] [address] 12/03/2023 12:30 PM EDT Office [place] [address] Hollie Ambriz MD [facility] [place] [address] 12/03/2023 2:30 PM ED[place] [address] Andrade Melvin MD [facility] DIAGNOSTIC RADIOLOGY [place], [place] [phone] documented as of this encounter Visit Diagnoses Diagnosis Pre-op chest exam Pre-operative respiratory examination Pre-op evaluation Preoperative examination, unspecified documented in this encounter Care Teams Job Spotter Relationship Specialty Start Date End Date Naina Lindsey MD [address] [place] [address] [place] [address] PCP - General 03/19/10 08/25/16 documented as of this encounter
--- OUTSIDE RECORDS SUMMARY | 2023-11-16 17:03 | XMS_ITS | Encounter Summary ---
Author Organization [facility] [place] [address] Care Team Providers Care A/C Technician Name Role Phone Naina Lindsey MD Primary Care Provider [phone] Encounter Details Date Type Department Care Team (Late st Contact Info) Description 07/20/2012 Orders Only [place] [address] Bigg Dunbar MD [facility] [place] [place] [address] Social History Tobacco Use Types Packs/Day Years [...] EDT TH Visit (TeleHealth) [place] [phone] Lilli Joy [place] [address] 12/03/2023 12:30 PM EDT Office [place] [address] Hollie Ambriz MD [facility] [place] [address] 12/03/2023 2:30 PM EDT [place] [phone] Andrade Melvin MD [facility] [place] [address] documented as of this encounter Visit Diagnoses Not on filedocumented in this encounter Care Teams A/C Technician Relationship Specialty Start Date End Date Naina Lindsey MD [address] [place] [address] PCP - General 03/19/10 08/25/16 documented as of this encounter
--- OUTSIDE RECORDS SUMMARY | 2023-11-16 17:03 | XMS_ITS | Encounter Summary ---
Author Organization [facility] [place] [address] Care Team Providers Care Gear Lapping Machine Operator Name Role Phone Naina Lindsey MD Primary Care Provider Encounter Details Date Type Department Care Team (Late st Contact Info) Description 07/08/2012 Orders [place] [address] Aniket Heredia MD [facility] [place] [address] Spasticity (Primary Dx) Social History [...] EDT TH Visit (TeleHealth) [place] [address] Lilli Joy APRN [facility] [place] [address] 12/03/2023 12:30 PM EDT Office [place] [address] Hollie Ambriz MD [facility] DR [place] [address] 12/03/2023 2:30 PM EDT [place] [address] Andrade Melvin MD [facility] [place] [address] documented as of this encounter Visit Diagnoses Diagnosis Spasticity- Primary Abnormal involuntary movements documented in this encounter Care Teams Gear Lapping Machine Operator Relationship Specialty Start Date End Date Naina Lindsey MD [address] [place] [address] [place] [address] PCP - General 03/19/10 08/25/16 documented as of this encounter
--- OUTSIDE RECORDS SUMMARY | 2023-11-16 17:03 | XMS_ITS | Encounter Summary ---
Author Organization [facility] [place] [address] Care Team Providers Care Vice President Of Talent Acquisition Name Role Phone Naina Lindsey MD Primary Care Provider [phone] Reason for Visit * Reason Comments Other pump wean Encounter Details Date Type Department Care Team (Latest Contact Info) Description 02/09/2014 11:45 AM EDT Procedure visit [place] [phone] Donnell Dotson MD [facility] [place] [address] Traumatic brain injury, sequela; Abnormal involuntary movements(131.0) Discharge Disposition: Home Social History Tobacco Use [...] access to your electronic medical record at [facility] and the ability to communicate with your [...] the instructions. Here is your activation code: [email or web address] Expires: 03/26/2014 12:29 PM Remember, myD-H is NOT for urgent needs! Always dial 911 for medical emergencies. documented in this encounter Procedure Notes * Donnell Dotson MD - 02/09/2014 2:59 PM EDTAssociated Order(s): INTRATHECAL PUMP REPROGRAMMING Pre-Procedure Diagnose(s): Abnormal involuntary movements(781.0) Patient and mother coming today. Since he was last seen, the orthopedic surgeons and the rest of the team at [facility] have agreed that she no longer needs the intrathecal baclofen. She like to be tapered off the baclofen before the pump is basically no longer effective, 3 months from now. Looking at the [employer] website and calling the local [employer] baclofen pump pharmacy sales representative, we decided to decrease her pump [...] EDT TH Visit (TeleHealth) Infectious Disease at [place] [phone] Lilli Joy [place]N [facility] [place] [address] 12/03/2023 12:30 PM EDT Office Visit [place] [address] Hollie Ambriz MD [facility] [place] [address] 12/03/2023 2:30 PM EDT [place]oint[place] [address] Andrade Melvin MD [facility] [place] [address] documented as of this encounter Procedures Procedure [...] and the rest of the team at [facility] have agreed that she no longer needs the intrathecal baclofen. She like to be tapered off the baclofen before the pump is basically no longer effective, 3 months from now. Looking at the [employer] website and calling the local [employer] baclofen pump pharmacy sales representative, we decided to decrease her pump [...] and the rest of the team at [facility] haveagreed that she no longer needs the intrathecal baclofen. She like to betapered off the baclofen before the pump is basically no longer effective,3 months from now. Looking at the [employer] website and calling the local [employer] baclofenpump pharmacy sales representative, we decided to decrease her pump [...] movements documented in this encounter Care Teams Vice President Of Talent Acquisition Relationship Specialty Start Date End Date Naina Lindsey MD [address] [place] [address] PCP - General 03/19/10 08/25/16 documented as of this encounter
--- OUTSIDE RECORDS SUMMARY | 2023-11-16 17:03 | XMS_ITS | Encounter Summary ---
Author Organization [facility] Address [facility] [place] [address] Care Team Providers Care Real Estate Valuer Name Role Phone Naina Lindsey MD Primary Care Provider [phone] Encounter Details Date Type Department Care Team (Latest Contact Info) Description 12/16/2011 12:15 PM EDT - 12/16/2011 11:59 PM EDT Hospital Encounter XRay at [address] [place] [address] CLINIC, Joesph Sheikh Jr., MD [facility] ORTHOPA[place] [address] Aquiles Smith MD [facility] [place] [address] Scoliosis Discharge Disposition: Home Social History Tobacco [...] EDT TH Visit (TeleHealth) Infectious Disease at [place] [phone] Lilli Joy APRN [facility] [place] [address] 12/03/2023 12:30 PM EDT Office Visit Infectious Disease at [place] [phone] Hollie Ambriz MD [facility] [place] [address] 12/03/2023 2:30 PM EDT Appointment Radiology at [place] [phone] Andrade Melvin MD [facility] [place] [address] documented as of this encounter Procedures Procedure [...] idiopathic documented in this encounter Care Teams Real Estate Valuer Relationship Specialty Start Date End Date Naina Lindsey MD [address] [place] [address] PCP - General 03/19/10 08/25/16 documented as of this encounter
--- OUTSIDE RECORDS SUMMARY | 2023-11-16 17:03 | XMS_ITS | Encounter Summary ---
Author Organization [facility] [place] [address] Care Team Providers Care Wood Tool Maker Name Role Phone Lorna Bal APRN Primary Care Provider [phone] Encounter Details Date Type Department Care Team (Late st Contact Info) Description 12/21/2013 Interpretation [place] [phone] Chuckie Mayfield MD [facility] [place] [address] Social History Tobacco Use Types Packs/Day Years [...] EDT TH Visit (TeleHealth) [place] [address] Lilli Joy APRN [facility] [place], [place] [address] 12/03/2023 12:30 PM EDT Office [place] [address] Hollie Ambriz MD [facility] [address] 12/03/2023 2:30 PM EDT [place] [address] Andrade Melvin MD [facility] [place] [address] documented as of this encounter Procedures Procedure Name Priority Date/Time Associated Diagnosis Comments FILM LIBRARY STORAGE ONLY DX UPPER EXTREMITY Routine 12/21/2013 1:30 PM EDT documented in this encounter Results * Film Library- Storage Only DX Upper Extremity (12/21/2013 1:30 PM EDT) 08/10/2023 3:14 PM EDT Narrative [facility] - 08/10/2023 3:14 PM EDT This exam is auto-finalizing. It's purpose is for storage only. Chuckie Mayfield MD IMG FILM LIBRARY ORD ERABLES [place], [place] documented in this encounter Visit Diagnoses [...] documented as of this encounter Care Teams Wood Tool Maker Relationship Specialty Start Date End Date Lorna Bal APRN [address] [place] [address] PCP - General Family Medicine 05/27/18 documented as of this encounter
--- OUTSIDE RECORDS SUMMARY | 2023-11-16 17:03 | XMS_ITS | Encounter Summary ---
Author Organization [facility] [place] [address] Care Team Providers Care Civil Geotechnical Engineer Name Role Phone Naina Lindsey MD Primary Care Provider [phone] Encounter Details Date Type Department Care Team (Latest Contact Info) Description 01/12/2012 11:15 AM EDT Procedure [place] [phone] Bigg Dunbar MD [facility] [place] [address] Abnormal involuntary movements (Primary Dx) Discharge Disposition: [...] Pump Reprogramming or Adjustment Tana S Dirk [id number] Date of Programming/Adjustment: January 12, 2012 Primary Applied Researcher: Dr. Lara Hardening Machine Operator: Dr. Dunbar Reason for Reprogramming or Adjustment: Refill Rate Adjustment: No Diagnosis: Spasticity Concomitant Medical Problems: Telemetry Pre-programming [place]: Drug: Baclofen Concentration: 1000 mcg/ml Dose Delivery per day: 195.1 mcg/day Infusion Mode: simple continuous Telemetry Post-programming [place]: Drug: Baclofen Concentration: 1000 mcg/ml Dose Delivery per day: 195.1 mcg/day Infusion Mode: simple continuous Pump Capacity: [] 20 ml [xxx] 40 ml Expected [place] Volume this visit: 4 ml Actual [place] Volume this visit: 5 ml Medication or [...] instilled into the pump according to the animal trapper's directions without difficulty. There was no evidence [...] Farhana Lara MD Fellow, Pain Medicine Pager [phone] documented in this encounter Miscellaneous Notes * Miscellaneous - Delbert, [facility] - 01/15/2012 4:53 PM EDT documented in this encounter Plan of Treatment Upcoming Encounters Date Type Department Care Team (Late st Contact Info) Description 11/19/2023 2:30 PM EDT TH Visit (TeleHealth) Infectious Disease at [place] [phone] Lilli Joy APRN [facility] [place] [address] 12/03/2023 12:30 PM EDT Office Visit Infectious Disease at [place] [phone] Hollie Ambriz MD [facility] [place] [address] 12/03/2023 2:30 PM EDT Appointment Radiology at [place] [phone] Andrade Melvin MD [facility] [place] [address] documented as of this encounter Procedures Procedure Name Priority Date/Time Associated Diagnosis Comments INTRATHECAL PUMP REFILL Routine 01/12/2012 12:44 PM EDT Abnormal involuntary movements documented in this encounter Results * INTRATHECAL PUMP REFILL (01/12/2012 12:44 PM EDT) Narrative Farhana Lara - 01/12/2012 12:44 PM EDT Pain Medicine Intrathecal Pump Reprogramming or Adjustment Tana Cavazos [id number] Date of Programming/Adjustment: January 12, 2012 Primary Applied Researcher: ??Dr. Lara ?? Hardening Machine Operator: ??Dr. Dunbar Reason for Reprogramming or Adjustment: [...] [] 20 ml [xxx] 40 ml Expected [place] Volume this visit: 4 ml Actual [place] Volume this visit: 5 ml Medication or [...] drapes were applied as provided with the [employer] refill kit. A 22 gauge Persaud non-coring [...] instilled into the pump according to the animal trapper's directions without difficulty. There was no evidence [...] Farhana Lara MD Fellow, Pain Medicine Pager [phone] Procedure Note Jane Farhana Julia - 01/12/2012 12:43 PM EDT Pain Medicine Intrathecal Pump Reprogramming or Adjustment Tana Cavazos [id number] Date of Programming/Adjustment: January 12, 2012 Primary Applied Researcher: Dr. Lara Hardening Machine Operator: Dr. Dunbar Reason for Reprogramming or Adjustment: Refill Rate Adjustment: No Diagnosis: Spasticity Concomitant Medical Problems: Telemetry Pre-programming [place]: Drug: Baclofen Concentration: 1000 mcg/ml Dose Delivery per day: 195.1 mcg/day Infusion Mode: simple continuous Telemetry Post-programming [place]: Drug: Baclofen Concentration: 1000 mcg/ml Dose Delivery per day: 195.1 mcg/day Infusion Mode: simple continuous Pump Capacity: [] 20 ml [xxx] 40 ml Expected [place] Volume this visit: 4 ml Actual [place] Volume this visit: 5 ml Medication or [...] Sterile drapes were applied as provided withthe [employer] refill kit. A 22 gauge Perasud non-coring needle supplied withthe refill kit was [...] Farhana Lara MD Fellow, Pain Medicine Pager [phone] Bigg Dunbar MD PROCEDURE/MINOR S URGICAL ORDERABLES [...] and Dose: Baclofen 1000 mcg/ml solution Lot [id number] Given 01/12/2012 12:38 PM EDT 1 each documented in this encounter Care Teams Civil Geotechnical Engineer Relationship Specialty Start Date End Date Naina Lindsey MD [address] [place] [address] PCP - General 03/19/10 08/25/16 documented as of this encounter
--- OUTSIDE RECORDS SUMMARY | 2023-11-16 17:03 | XMS_ITS | Encounter Summary ---
Author Organization [facility] [place] [address] Care Team Providers Care Signal Maintainer Helper Name Role Phone Naina Lindsey MD Primary Care Provider Reason for Referral * Occupational Therapy (Routine) - Complete - Patient Will Schedule External Appt Specialty Diagnoses / Procedures Referred By Contac t Referred To Contact Occupational Therapy Diagnoses Acquired dysplasia of hip Scoliosis Traumatic brain injury Yas Ramirez MD [facility] [place] [address] Referral ID Status Reason Start Date Expiration Date Visits Requested Visits Authorized [id number] Complete - Patient Will Schedule External Appt Evaluate and Treat 01/02/2011 07/01/2011 1 1 * Physical Therapy (Routine) - Complete - Patient Will Schedule External Appt Specialty Diagnoses / Procedures Referred By Contac t Referred To Contact Physical Therapy Diagnoses Acquired dysplasia of hip Scoliosis Traumatic brain injury Yas Ramirez MD [facility] [place] [address] Referral ID Status Reason Start Date Expiration Date Visits Requested Visits Authorized [id number] Complete - Patient Will Schedule External Appt Evaluate and Treat 01/02/2011 07/01/2011 1 1 Encounter Details Date Type Department Care Team (Late st Contact Info) Description 01/02/2011 Orders Only Orthopaedics at [place] [address] Yas Ramirez MD [facility] [place] [address] Acquired dysplasia of hip, bilateral; Scoliosis; Traumatic [...] EDT TH Visit (TeleHealth) Infectious Disease at [place] [address] [facility] [place] [address] 12/03/2023 12:30 PM EDT Office Visit Infectious Disease at [place] [address] Hollie Ambriz MD [facility] [place] [address] 12/03/2023 2:30 PM EDT Appointment Radiology at [place] [address] Andrade Melvin MD [facility] [place] [address] Scheduled Referrals Name Type Priority Associated Diagnoses [...] consciousness documented in this encounter Care Teams Signal Maintainer Helper Relationship Specialty Start Date End Date Naina [place] MD [address] [place] [address] PCP - General 03/19/10 08/25/16 documented as of this encounter
--- OUTSIDE RECORDS SUMMARY | 2023-11-16 17:03 | XMS_ITS | Encounter Summary ---
Author Organization [facility] [place] [address] Care Team Providers Care Emergency Management Specialist Name Role Phone Naina Lindsey MD Primary Care Provider [phone] Encounter Details Date Type Department Care Team (Late st Contact Info) Description 12/21/2013 1:40 PM EDT Ancillary Procedure [place] [phone] Chuckie Mayfield MD [facility] ORTHOPAEDIC [place] [address] Social History Tobacco Use Types Packs/Day Years [...] EDT TH Visit (TeleHealth) [place] [address] [facility] [place] [address] 12/03/2023 12:30 PM EDT Office [place] [address] Hollie Ambriz MD [facility] INFECTI[place] [address] 12/03/2023 2:30 PM EDT [place] [address] Andrade Melvin MD [facility] DIAGNOSTIC [place] [address] documented as of this encounter Procedures Procedure Name Priority Date/Time Associated Diagnosis Comments FILM LIBRARY STORAGE ONLY DX WRIST Routine 12/21/2013 1:40 PM EDT documented in this encounter Results * Film Library- Storage Only DX Wrist (12/21/2013 1:40 PM EDT) 08/10/2023 3:14 PM EDT Narrative [facility] 08/10/2023 3:14 PM EDT This exam is auto-finalizing. It's purpose is for storage only. Chuckie Mayfield MD IMG FILM LIBRARY ORD ERABLES [place], [place] documented in this encounter Visit Diagnoses Not on filedocumented in this encounter Care Teams Emergency Management Specialist Relationship Specialty Start Date End Date Naina Lindsey MD [address] [place] [address] PCP - General 03/19/10 08/25/16 documented as of this encounter
--- OUTSIDE RECORDS SUMMARY | 2023-11-16 17:03 | XMS_ITS | Encounter Summary ---
Author Organization [facility] [place] [address] Care Team Providers Care Energy Professional Name Role Phone Naina Lindsey MD Primary Care Provider [phone] Encounter Details Date Type Department Care Team (Late st Contact Info) Description 11/18/2010 [place] [address] Jessica López, RN Social History [...] EDT TH Visit (TeleHealth) [place] [address] Lilli Joy, [place] [facility] [place] [address] 12/03/2023 12:30 PM EDT Office [place] [address] Hollie Ambriz MD [facility] [place] [address] 12/03/2023 2:30 PM EDT [place] [phone] Andrade Melvin MD [facility] [place] [address] documented as of this encounter Visit Diagnoses Not on filedocumented in this encounter Care Teams Energy Professional Relationship Specialty Start Date End Date Naina Lindsey MD [address] [place] [address] [place] [address] PCP - General 03/19/10 08/25/16 documented as of this encounter
--- OUTSIDE RECORDS SUMMARY | 2023-11-16 17:03 | XMS_ITS | Encounter Summary ---
Author Organization [facility] [place] [address] Care Team Providers Care Shrimp Cleaner Name Role Phone Naina Lindsey MD Primary Care Provider Encounter Details Date Type Department Care Team (Late st Contact Info) Description 04/15/2011 Orders [place] [address] Margaux Godfrey MD [facility] [place] [address] Spasticity (Primary Dx) Social History Tobacco Use [...] EDT TH Visit (TeleHealth) [place] [address] Lilli Joy APRN [facility] [place] [address] 12/03/2023 12:30 PM EDT Office [place] [address] Hollie Ambriz MD [facility] DR [place] [address] 12/03/2023 2:30 PM ED[place] [phone] Andrade Melvin MD [facility] [address] [place]AG[place]ST[place] [address] documented as of this encounter Visit Diagnoses Diagnosis Spasticity- Primary Abnormal involuntary movements documented in this encounter Care Teams Shrimp Cleaner Relationship Specialty Start Date End Date Naina Lindsey MD [address] [place] [address] PCP - General 03/19/10 08/25/16 documented as of this encounter
--- OUTSIDE RECORDS SUMMARY | 2023-11-16 17:03 | XMS_ITS | Encounter Summary ---
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 Zaldivar Energy Efficiency Specialist: Dr. Dillon Reason for Reprogramming: Refill/weaning Diagnosis: [...] instilled into the pump according to the abrasive grader's directions without difficulty. There was no evidence [...] medication. Nitin Zaldivar MD Fellow, Pain Medicine 6175 documented in this encounter Miscellaneous Notes * Miscellaneous - Delbert, Fine Arts Model - 05/01/2011 2:01 PM EST documented in this encounter Plan of Treatment Upcoming Encounters Date Type Department Care Team (Late st Contact Info) Description 11/19/2023 2:30 PM EDT TH Visit (TeleHealth) Infectious Disease at [place] [phone] Lilli Joy [place] [address] 12/03/2023 12:30 PM EDT Office Visit Infectious Disease at [place] [phone] Hollie Ambriz MD [facility] [place] [address] 12/03/2023 2:30 PM EDT Appointment Radiology at [place] [phone] Andrade Melvin MD [facility] [place] [address] documented as of this encounter Visit Diagnoses [...] each documented in this encounter Care Teams Clinical Audiologist Relationship Specialty Start Date End Date Naina Lindsey MD [address] [place] [address] PCP - General 03/19/10 08/25/16 documented as of this encounter
--- OUTSIDE RECORDS SUMMARY | 2023-11-16 17:03 | XMS_ITS | Encounter Summary ---
Author Organization [facility] [place] [address] Care Team Providers Care Pattern Wheel Maker Name Role Phone Naina Lindsey MD Primary Care Provider [phone] Reason for Referral * Consultation (Routine) - Closed Specialty Diagnoses / Procedures Referred By Contac t Referred To Contact Pain Management Diagnoses Scoliosis Jamar Dodd III, MD [facility] [place] [address] [facility] [address] [place] [address] Referral ID Status Reason Start Date Expiration Date V isits Requested Visits Authorized [id number] Closed Consult Only 12/16/2011 06/13/2012 1 1 * Consultation (Routine) - Complete - Unable to Contact Patient Specialty Diagnoses / Procedures Referred By Contac t Referred To Contact Pediatrics Diagnoses Scoliosis pre operative evaluation and to establish contact for [place] [facility] [place] Jamar Whtiing III, MD [facility] [place] [address] [facility] [address] [place] [phone] Referral ID Status Reason Start Date Expiration Date Visits Requested Visits Authorized [id number] Complete - Unable to Contact Patient Consult Only 12/16/2011 06/13/2012 1 1 * Surgical (Routine) - Closed by system - Referral Specialty Diagnoses / Procedures Referred By Contac t Referred To Contact Anesthesiology Diagnoses Scoliosis Aquiles Smith MD [facility] [place] [address] [facility] [place] [address] Referral ID Status Reason Start Date Expiration Date Visits Requested Visits Authorized [id number] Closed by system - Referral Consult, Test & Treat 12/16/2011 06/13/2012 1 1 Reason for Visit * Reason Comments Follow Up Surgery Bilat. Hip DOS 2010 Encounter Details Date Type Department Care Team (Late st Contact Info) Description 12/16/2011 1:30 PM EDT Office Visit Orthopaedics at [place] [phone] Aquiles Smith MD [facility] [place] [address] Scoliosis (Primary Dx) Discharge Disposition: Home Social [...] DATE OF SERVICE: 12/16/2011 RESPONSIBLE ATTENDING: Aquiles Smtih MD REASON FOR EVALUATION: Followup on scoliosis [...] EDT TH Visit (TeleHealth) Infectious Disease at [place] [phone] Lilli Joy APRN [facility] [place] [address] 12/03/2023 12:30 PM EDT Office Visit Infectious Disease at [place] [address] Hollie Ambriz MD [facility] [place] [address] 12/03/2023 2:30 PM EDT Appointment Radiology at [place] [address] Andrade Melvin MD [facility] [place] [address] Scheduled Referrals Name Type Priority Associated Diagnoses Order Schedule REFERRAL TO GENERAL ANESTHESIOLOGY Outpatient Referral Routine Scoliosis Ordered: 12/16/2011 REFERRAL TO PEDIATRICS Outpatient Referral Routine Scoliosis Ordered: 12/16/2011 REFERRAL TO PAIN CLINIC Outpatient Referral Routine Scoliosis Ordered: 12/16/2011 documented as of this encounter Visit Diagnoses Diagnosis Scoliosis- Primary Scoliosis (and kyphoscoliosis), idiopathic documented in this encounter Care Teams Pattern Wheel Maker Relationship Specialty Start Date End Date Naina Lindsey MD [address] [place] [address] PCP - General 03/19/10 08/25/16 documented as of this encounter
--- OUTSIDE RECORDS SUMMARY | 2023-11-16 17:03 | XMS_ITS | Encounter Summary ---
Author Organization [facility] [place] [address] Care Team Providers Care Retail District Manager Name Role Phone Lorna Bal APRN Primary Care Provider [phone] Encounter Details Date Type Department Care Team (Late st Contact Info) Description 12/21/2013 Interpretation [place] [phone] Chuckie Mayfield MD [facility] [place] [address] Social History Tobacco Use Types Packs/Day Years [...] EDT TH Visit (TeleHealth) [place] [address] Lilli Joy [place] [facility] [place] [address] 12/03/2023 12:30 PM EDT Office [place] [address] Hollie Ambriz MD [facility] [place] [address] 12/03/2023 2:30 PM EDT [place] [address] Andrade Melvin MD [facility] DIAGNOSTIC RADIOLOGY [place], [place] [address] documented as of this encounter Procedures Procedure Name Priority Date/Time Associated Diagnosis Comments FILM LIBRARY STORAGE ONLY DX WRIST Routine 12/21/2013 1:40 PM EDT documented in this encounter Results * Film Library- Storage Only DX Wrist (12/21/2013 1:40 PM EDT) 08/10/2023 3:14 PM EDT Narrative [facility] - 08/10/2023 3:14 PM EDT This exam is auto-finalizing. It's purpose is for storage only. Chuckie Mayfield MD IMG FILM LIBRARY ORD ERABLES [place], [place] documented in this encounter Visit Diagnoses [...] documented as of this encounter Care Teams Retail District Manager Relationship Specialty Start Date End Date Lorna Bal APRN [address] [place] [address] PCP - General Family Medicine 05/27/18 documented as of this encounter
--- OUTSIDE RECORDS SUMMARY | 2023-11-16 17:03 | XMS_ITS | Encounter Summary ---
Author Organization [facility] [place] [address] Care Team Providers Care Puff Ironer Name Role Phone Naina Lindsey MD Primary Care Provider [phone] Encounter Details Date Type Department Care Team (Late st Contact Info) Description 12/21/2013 1:30 PM EDT Ancillary Procedure [place] [address] Chuckie Mayfield MD [facility] [place] [address] Social History Tobacco Use Types Packs/Day Years [...] TH Visit (TeleHealth) [place] [address] Lilli Joy APRN [facility] [place] [address] 12/03/2023 12:30 PM EDT Office Visit [place] [address] Hollie Ambriz MD [facility] [place] [address] 12/03/2023 2:30 PM EDT Appointment [place] [address] Andrade Melvin MD [facility] [place] [address] documented as of this encounter Procedures Procedure Name Priority Date/Time Associated Diagnosis Comments FILM LIBRARY STORAGE ONLY DX UPPER EXTREMITY Routine 12/21/2013 1:30 PM EDT documented in this encounter Results * Film Library- Storage Only DX Upper Extremity (12/21/2013 1:30 PM EDT) 08/10/2023 3:14 PM EDT Narrative [facility] 08/10/2023 3:14 PM EDT This exam is auto-finalizing. It's purpose is for storage only. Chuckie Mayfield MD IMG FILM LIBRARY ORD ERABLES Performing Organization Address City/State/[facility] Co de Phone Number [place], [place] documented in this encounter Visit Diagnoses Not on filedocumented in this encounter Care Teams Puff Ironer Relationship Specialty Start Date End Date Naina Lindsey MD [address] [place] [address] PCP - General 03/19/10 08/25/16 documented as of this encounter
--- OUTSIDE RECORDS SUMMARY | 2023-11-16 17:03 | XMS_ITS | Encounter Summary ---
Author Organization [facility] [place] [address] Care Team Providers Care Writing Tutor Name Role Phone Naina Lindsey MD Primary Care Provider Reason for Referral * Consultation (Routine) - Complete - Patient Will Schedule External Appt Specialty Diagnoses / Procedures Referred By Contac t Referred To Contact Orthotics Diagnoses Edema leg Scoliosis Acquired dysplasia of hip Traumatic brain injury Yas Ramirez MD [facility] [place] [address] Referral ID Status Reason Start Date Expiration Date Visits Requested Visits Authorized [id number] Complete - Patient Will Schedule External Appt Consult, Test & Treat 1 10/13/2011 1 1 Encounter Details Date Type Department Care Team (Late st Contact Info) Description 04/16/2011 Orders Only [place] [address] Yas Ramirez MD [facility] [place] [address] Edema leg; Scoliosis; Acquired dysplasia of hip, [...] EDT TH Visit (TeleHealth) Infectious Disease at [place] [address] [address] Joy [address] [facility] [place] [place] [address] 12/03/2023 12:30 PM EDT Office Visit Infectious Disease at [place] [address] Hollie Ambriz MD [facility] [place] [address] 12/03/2023 2:30 PM EDT Appointment Radiology at [place] [address] Andrade Melvin MD [facility] [place] [address] Scheduled Referrals Name Type Priority Associated Diagnoses [...] consciousness documented in this encounter Care Teams Writing Tutor Relationship Specialty Start Date End Date Naina Lindsey [place] [address] PCP - General 03/19/10 08/25/16 documented as of this encounter
--- OUTSIDE RECORDS SUMMARY | 2023-11-16 17:03 | XMS_ITS | Encounter Summary ---
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 Marino Rides Supervisor: Chelsea Alva Reason for Reprogramming or Adjustment: Refill Rate Adjustment: No Diagnosis: Spasticity Concomitant Medical Problems: Telemetry Pre-programming Reading: Drug: Baclofen Concentration: 1000 mcg/ml Dose Delivery per day: 195.1 mcg/day Infusion Mode: simple continuous Telemetry Post-programming Reading: Drug: Baclofen Concentration: 1000 mcg/ml (RX #[id number], discard date 08/28/12) Dose Delivery per day: 195.1 mcg/day Infusion Mode: simple continuous Pump Capacity: [] 20 ml [xxx] 40 ml Expected [place] Volume this visit: 2.6 ml Actual [place] Volume this visit: 3.5 ml Medication or [...] drapes were applied as provided with the [employer]epskort[employer] refill kit. A 22 gauge Persaud non-coring [...] instilled into the pump according to the assistant facility manager's directions without difficulty. There was no evidence [...] EDT TH Visit (TeleHealth) Infectious Disease at [place] [phone] Lilli Joy APRN [facility] [place] [address] 12/03/2023 12:30 PM EDT Office Visit Infectious Disease at [address] Hollie Ambriz MD [facility] [place] [address] 12/03/2023 2:30 PM EDT Appointment Radiology at [place] [address] Andrade Melvin MD [facility] [place] [address] documented as of this encounter Procedures Procedure [...] Medicine Intrathecal Pump Reprogramming or Adjustment Tana Freddy Dirk [id number] Date of Programming/Adjustment: 07/22/12 Primary Factory Focus Technician: ??Dr. Marino Rides Supervisor: ??Chelsea Alva Reason for Reprogramming or Adjustment: Refill Rate Adjustment: No Diagnosis: Spasticity Concomitant Medical Problems: ?? Telemetry Pre-programming Reading: ?? Drug: Baclofen Concentration: 1000 mcg/ml Dose Delivery per day: 195.1 mcg/day Infusion Mode: ?? simple continuous ?? Telemetry Post-programming Reading: ?? Drug: Baclofen Concentration: 1000 mcg/ml (RX #[id number], discard date 5/4/13) Dose Delivery per day: 195.1 mcg/day Infusion Mode: ?? simple continuous ? Pump Capacity: [] 20 ml [xxx] 40 ml Expected [place] Volume this visit: 2.6 ml Actual [place] Volume this visit: 3.5 ml Medication or [...] drapes were applied as provided with the [employer]epskort[employer] refill kit. A 22 gauge Persaud non-coring [...] instilled into the pump according to the assistant facility manager's directions without difficulty. There was no evidence [...] Intrathecal Pump Reprogramming or Adjustment Tana Cavazos [id number] Date of Programming/Adjustment: 07/22/12 Primary Factory Focus Technician: Dr. Marino Rides Supervisor: Chelsea Alva Reason for Reprogramming or Adjustment: Refill Rate Adjustment: No Diagnosis: Spasticity Concomitant Medical Problems: Telemetry Pre-programming Reading: Drug: Baclofen Concentration: 1000 mcg/ml Dose Delivery per day: 195.1 mcg/day Infusion Mode: simple continuous Telemetry Post-programming Reading: Drug: Baclofen Concentration: 1000 mcg/ml (RX #[id number], discard date 08/28/12) Dose Delivery per day: 195.1 mcg/day Infusion Mode: simple continuous Pump Capacity: [] 20 ml [xxx] 40 ml Expected [place] Volume this visit: 2.6 ml Actual [place] Volume this visit: 3.5 ml Medication or [...] Baclofen 1000 mcg/ml - 40 ml - RX#[id number] Given 07/22/2012 9:33 AM EDT 1 each documented in this encounter Care Teams Coal Unloader Relationship Specialty Start Date End Date Naina Lindsey MD [address] [place] [address] PCP - General 03/19/10 08/25/16 documented as of this encounter
--- OUTSIDE RECORDS SUMMARY | 2023-11-16 17:03 | XMS_ITS | Encounter Summary ---
Author Organization [facility] [place] [place] [address] Care Team Providers Care Licensing Specialist Name Role Phone Naina Lindsey MD Primary Care Provider [phone] Reason for Visit * Reason Comments Cerebral Palsy Encounter Details Date Type Department Care Team (Latest Contact Info) Description 07/11/2011 8:30 AM EDT Procedure [place] [phone] Yudelka Coyne MD [facility] [place] [address] Spasticity (Primary Dx); Abnormal involuntary movements Discharge [...] provided the care. Christiana Woods DO N [facility] PAIN MANAGEMENT [place] [address] Dept: [phone] * Yudelka Coyne MD - 07/11/2011 10:56 AM EDT INTRATHECAL PUMP REFILL PROCEDURE NOTE WITH REPROGRAMMING Primary Network Coordinator: Dr. Steffany Coyne Clinical Faculty: Lucia Mazariegos LPN Reason for Reprogramming: refill [...] different? no Empty syringe concentration verified by liner checker: no If concentration of drug is [...] drapes were applied as provided with the [employer] refill kit. A 22 gauge Persaud non-coring [...] instilled into the pump according to the fat pressroom worker's directions without difficulty. There was no evidence [...] encounter Miscellaneous Notes * Miscellaneous - Delbert Electrical Superintendent - 07/15/2011 4:12 PM EDT documented in this encounter Plan of Treatment Upcoming Encounters Date Type Department Care Team (Late st Contact Info) Description 11/19/2023 2:30 PM EDT TH Visit (TeleHealth) [place] [phone] Lilli Joy [address] [facility] [place] [address] 12/03/2023 12:30 PM EDT Office [place] [address] Hollie Ambriz MD [facility] INFECTIOUS DISEASE [place], [place] [address] 12/03/2023 2:30 PM EDT Appointment Radiology at [place] [phone] Andrade Melvin MD [facility] [place] [address] Scheduled Orders Name Type Priority Associated Diagnoses [...] each documented in this encounter Care Teams Licensing Specialist Relationship Specialty Start Date End Date Naina Lindsey MD [address] [place] [address] PCP - General 03/19/10 08/25/16 documented as of this encounter
--- OUTSIDE RECORDS SUMMARY | 2023-11-16 17:03 | XMS_ITS | Encounter Summary ---
Author Organization [facility] [place] [address] Care Team Providers Care Resident Assistant Name Role Phone Naina Lindsey MD Primary Care Provider Reason for Visit * Reason Onset Date Comments Blindness 12/27/2011 Encounter Details Date Type Department Care Team (Late st Contact Info) Description 12/27/2011 Telephone [place] [address] Aquiles Smith MD [facility] [place] [address] Blindness Social History Tobacco Use Types Packs/Day [...] EDT TH Visit (TeleHealth) [place] [address] Lilli Joy APRN [facility] [place] [address] 12/03/2023 12:30 PM EDT Office Visit [place] [address] Hollie Ambriz MD [facility] [place] [address] 12/03/2023 2:30 PM EDT Appointment [place] [address] Andrade Melvin MD [facility] [place] [address] documented as of this encounter Visit Diagnoses Not on filedocumented in this encounter Care Teams Resident Assistant Relationship Specialty Start Date End Date Naina Lindsey MD [address] [place] [address] [place] [address] PCP - General 03/19/10 08/25/16 documented as of this encounter
--- OUTSIDE RECORDS SUMMARY | 2023-11-16 17:03 | XMS_ITS | Encounter Summary ---
Author Organization [facility] [place] [address] Care Team Providers Care Tool Design Checker Name Role Phone Naina Lindsey MD Primary Care Provider Reason for Visit * Reason Comments Spasms Encounter Details Date Type Department Care Team (Late st Contact Info) Description 11/20/2010 12:45 PM EDT Follow-[place] [phone] Christiano Floyd MD [facility] [place] [address] Spastic quadriplegia (Primary Dx) Discharge Disposition: Home [...] 11/20/2010 1:2 7 PM EDT Growth Chart: [facility] (Girls, 2- 20 Years) documented in this encounter Progress Notes * Gaby Silva - 11/20/2010 3:00 PM EDT Pain Management Center Refill of Intrathecal Pump with Reprogramming Procedure Note Tana Robles Cavazos [id number] Date of Refill: 11/20/10 Primary Solid Waste Technician: Dr. Silva Orthodontic Treatment Coordinator: Dr. Floyd Reason for Reprogramming: Refill Diagnosis: [...] instilled into the pump according to the chemical maker's directions without difficulty. There was no evidence [...] EDT TH Visit (TeleHealth) [place] [address] Lilli Joy [place] [address] 12/03/2023 12:30 PM EDT Office Visit Infectious Disease at [place] [phone] Hollie Ambriz MD [facility] [place] [address] 12/03/2023 2:30 PM EDT Appointment [place] [address] Andrade Melvin MD [facility] [place] [address] documented as of this encounter Visit Diagnoses Diagnosis Spastic quadriplegia- Primary Quadriplegia, unspecified documented in this encounter Care Teams Tool Design Checker Relationship Specialty Start Date End Date Nain[place] [address] PCP - General 03/19/10 08/25/16 documented as of this encounter
--- OUTSIDE RECORDS SUMMARY | 2023-11-16 17:03 | XMS_ITS | Encounter Summary ---
Author Organization [facility] [place] [address] Care Team Providers Care Bore Miner Operator Name Role Phone Naina Lindsey MD Primary Care Provider [phone] Encounter Details Date Type Department Care Team (Late st Contact Info) Description 06/30/2011 Orders [place] [address] Boyd Dillon MD [facility] [place] [address] Spasticity (Primary Dx) Social History Tobacco Use [...] EDT TH Visit (TeleHealth) [place] [address] Lilli Joy, [facility] [place] [address] 12/03/2023 12:30 PM EDT Office [place] [address] Hollie Ambriz MD [facility] [place] [address] 12/03/2023 2:30 PM EDT [place] [address] Andrade Melvin MD [facility] [place] [address] documented as of this encounter Visit Diagnoses Diagnosis Spasticity- Primary Abnormal involuntary movements documented in this encounter Care Teams Bore Miner Operator Relationship Specialty Start Date End Date Naina [place] [address] PCP - General 03/19/10 08/25/16 documented as of this encounter
--- OUTSIDE RECORDS SUMMARY | 2023-11-16 17:03 | XMS_ITS | Encounter Summary ---
Author Organization [facility] [place] [address] Care Team Providers Care Sales Lead Generator Name Role Phone Naina Lindsey MD Primary Care Provider [phone] Reason for Visit * Reason Comments Pain Encounter Details Date Type Department Care Team (Latest Contact Info) Description 02/15/2014 4:45 PM EDT Procedure [place] [phone] Donnell Dotson MD [facility] [place] [address] Spasticity; Abnormal involuntary movements(011.0) Discharge Disposition: Home Social History Tobacco Use [...] EDT TH Visit (TeleHealth) [place] [address] Lilli Joy [place] [address] 12/03/2023 12:30 PM EDT Office Visit [place] [address] Hollie Ambriz MD [facility] [place] [address] 12/03/2023 2:30 PM EDT Appointment Radiology at [place] [phone] Andrade Miranda MD [facility] DIAGNOSTIC [place] [address] documented as of this encounter Procedures Procedure [...] movements documented in this encounter Care Teams Sales Lead Generator Relationship Specialty Start Date End Date Naina Lindsey MD [address] [place] [address] [place] [address] PCP - General 03/19/10 08/25/16 documented as of this encounter
--- OUTSIDE RECORDS SUMMARY | 2023-11-16 17:03 | XMS_ITS | Encounter Summary ---
Author Organization [facility] [place] [address] Care Team Providers Care High School Music Director Name Role Phone Naina Lindsey MD Primary Care Provider [phone] Encounter Details Date Type Department Care Team (Late st Contact Info) Description 06/16/2013 Orders [place] [address] [facility] [place] [address] Social History Tobacco Use Types Packs/Day Years [...] EDT TH Visit (TeleHealth) [place] [address] Lilli Joy [address]N [facility] [place] [address] 12/03/2023 12:30 PM EDT Office [place] [address] [facility] [place] [address] 12/03/2023 2:30 PM EDT [place] [address] [facility] [address] [place] [address] documented as of this encounter Visit Diagnoses Not on filedocumented in this encounter Care Teams High School Music Director Relationship Specialty Start Date End Date Naina Lindsey MD [address] [place] [address] PCP - General 03/19/10 08/25/16 documented as of this encounter
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
--- OUTSIDE RECORDS SUMMARY | 2023-11-16 17:03 | XMS_ITS | Encounter Summary ---
Author Organization [facility] [place] [address] Care Team Providers Care Supervisor Pre Wave Name Role Phone Naina Lindsey MD Primary Care Provider [phone] Encounter Details Date Type Department Care Team (Late st Contact Info) Description 02/27/2014 Telephone [place] [address] [facility] [place] [place] [address] Social History Tobacco Use Types Packs/Day Years [...] EDT TH Visit (TeleHealth) [place] [address] Lilli Joy APRN [facility] [place] [address] 12/03/2023 12:30 PM EDT Office [place] [address] [facility] [place] [address] 12/03/2023 2:30 PM EDT [place] [address] [facility] DR [place]AGNOSTIC [place] [address] documented as of this encounter Visit Diagnoses Not on filedocumented in this encounter Care Teams Supervisor Pre Wave Relationship Specialty Start Date End Date Naina Lindsey MD [address] [place] [address] [place] [address] PCP - General 03/19/10 08/25/16 documented as of this encounter
--- OUTSIDE RECORDS SUMMARY | 2023-11-16 17:04 | XMS_ITS | Encounter Summary ---
Author Organization [facility] Address [address] [place] [address] Care Team Providers Care Party Host Name Role Phone César Robert MD, Naina Primary Care Provider [phone] Reason for Visit * Reason Onset Date Comments Appointment Related 04/13/2019 Encounter Details Date Type Department Care Team (Late st Contact Info) Description 04/13/2019 Telephone [facility] Rehabilitation Therapy - [address] [phone] Therapy, Physical Appointment Related Social History Tobacco [...] erickson Cristobal [facility]4. She confirmed they were available for the date/time. Gretchen Dietz MA 04/13/2019 15:19 documented in this encounter Plan of Treatment Not on file documented as of this encounter Visit Diagnoses Not on filedocumented in this encounter Care Teams Party Host Relationship Specialty Start Date End Date Naina Lindsey MD [address] [place] [address] [place], [place] [id number] PCP - General 02/13/15 documented as of this encounter
--- OUTSIDE RECORDS SUMMARY | 2023-11-16 17:04 | XMS_ITS | Encounter Summary ---
Author Organization Health system Address [address] [place] [address] Care Team Providers Care As400 Operator Name Role Phone César Robert MD, Naina Primary Care Provider [phone] Reason for Visit * Reason Onset Date Comments Appointment Related 09/27/2019 Encounter Details Date Type Department Care Team (Late st Contact Info) Description 09/27/2019 Telephone [facility] Rehabilitation Therapy - [address] [phone] Therapy, Physical Appointment Related Social History Tobacco [...] on filedocumented in this encounter Care Teams As400 Operator Relationship Specialty Start Date End Date Naina Lindsey MD [address] [place] [address] PCP - General 02/13/15 documented as of this encounter
--- OUTSIDE RECORDS SUMMARY | 2023-11-16 17:04 | XMS_ITS | Encounter Summary ---
Author Organization [facility] [place] [address] Care Team Providers Care Wares Sorter Name Role Phone Naina Lindsey MD Primary Care Provider [phone] Encounter Details Date Type Department Care Team (Late st Contact Info) Description 07/11/2010 9:00 AM EDT Follow-[place] [address] Andrade Gordon MD [facility] [place] [address] Discharge Disposition: Home Social History Tobacco Use [...] EDT TH Visit (TeleHealth) [place] [address] Lilli Joy APRN [facility] [place] [address] 12/03/2023 12:30 PM EDT Office [place] [address] Hollie Ambriz MD [facility] DR INFECTIOUS [place] [address] 12/03/2023 2:30 PM EDT [place] [address] Andrade Melvin MD [facility] DIAGNOSTIC [place] [address] documented as of this encounter Visit Diagnoses Not on filedocumented in this encounter Care Teams Wares Sorter Relationship Specialty Start Date End Date Naina Lindsey MD [address] [place] [address] [place] [address] PCP - General 03/19/10 08/25/16 documented as of this encounter
--- OUTSIDE RECORDS SUMMARY | 2023-11-16 17:04 | XMS_ITS | Encounter Summary ---
Author Organization [facility] Address [facility] [place] [address] Care Team Providers Care Spanish Medical Interpreter Name Role Phone Naina Lindsey MD Primary Care Provider [phone] Encounter Details Date Type Department Care Team (Late st Contact Info) Description 06/12/2010 9:00 AM EST Procedure visit [address] [address] Social History Tobacco Use Types Packs/Day Years [...] Visit (TeleHealth) [place] [address] Lilli Joy APRN [facility] [place] [address] 12/03/2023 12:30 PM EDT Office [place] [address] Hollie Ambriz MD [facility] [place] [address] 12/03/2023 2:30 PM EDT [place] [address] Andrade Melvin MD [facility] [place] [address] documented as of this encounter Visit Diagnoses Not on filedocumented in this encounter Care Teams Spanish Medical Interpreter Relationship Specialty Start Date End Date Naina Lindsey MD [address] [place] [address] [facility] [place] [address] PCP - General 03/19/10 08/25/16 documented as of this encounter
--- OUTSIDE RECORDS SUMMARY | 2023-11-16 17:04 | XMS_ITS | Encounter Summary ---
Author Organization [facility]1983 Address [facility] Benjamin [facility] [place] [address] Care Team Providers Care Asphalt Paving Superintendent Name Role Phone Naina Lindsey MD Primary Care Provider [phone] Encounter Details Date Type Department Care Team (Late st Contact Info) Description 08/13/2010 [place] [address] Yas Ramirez MD [facility] [place] [address] Social History Tobacco Use Types Packs/Day Years [...] EDT TH Visit (TeleHealth) [place] [address] Lilli Joy APRN [facility] [place] [address] 12/03/2023 12:30 PM EDT Office Visit Infectious Disease at [place] [phone] Hollie Ambriz MD [facility] [place] [address] 12/03/2023 2:30 PM EDT Appointment Radiology at [place] [phone] Andrade Melvin MD [facility] [place] [address] documented as of this encounter Visit Diagnoses Not on filedocumented in this encounter Care Teams Asphalt Paving Superintendent Relationship Specialty Start Date End Date Naina [place] [address] PCP - General 03/19/10 08/25/16 documented as of this encounter
--- OUTSIDE RECORDS SUMMARY | 2023-11-16 17:04 | XMS_ITS | Encounter Summary ---
Author Organization [facility] Address [address] [place] [address] Care Team Providers Care Rigger Chief Name Role Phone César Robert MD, Naina Primary Care Provider [phone] Encounter Details Date Type Department Care Team (Late st Contact Info) Description 07/01/2023 Lab Requisition [facility] Pathology & Laboratory Medicine - [address] [phone] Outr Resulting Lab, Provider Social History Tobacco [...] IgA <4.0 <20.0 CU 07/02/2023 10:22 EST [facility] Comment: Negative: <20.0 CU Weak Positive: 20.0-30.0 CU Positive: >30.0 CU Results were obtained with the [employer] Flash h-tTG IgA chemiluminescent immunoassay. Values obtained with different manufacturers' assay methods may not be used interchangeably. Blood VENOUS BLOOD / Unknown 07/01/2023 10:52 EST 07/01/2023 21:12 EST Provider Outr Resulting Lab IMMUNOLOGY A ND SEROLOGY ORDERABLES Performing Organization Address City/State/[facility] Co de Phone Number [facility] [address] [place], [place] [phone] documented in this encounter Visit Diagnoses Not on filedocumented in this encounter Care Teams Rigger Chief Relationship Specialty Start Date End Date Naina Lindsey MD [address] [place] [address] PCP - General 02/13/15 documented as of this encounter
--- OUTSIDE RECORDS SUMMARY | 2023-11-16 17:04 | XMS_ITS | Encounter Summary ---
Author Organization [facility] Address [address] [place] [address] Care Team Providers Care Millwright Supervisor Name Role Phone César Robert MD, Naina Primary Care Provider [phone] Reason for Visit * Reason Onset Date Comments Appointment Related 05/04/2019 Encounter Details Date Type Department Care Team (Late st Contact Info) Description 05/04/2019 Telephone [facility] Rehabilitation Therapy - [address] [address] Therapy, Physical Appointment Related Social History Tobacco [...] on filedocumented in this encounter Care Teams Millwright Supervisor Relationship Specialty Start Date End Date Naina Lindsey MD [address] [place] [address] PCP - General 02/13/15 documented as of this encounter
--- OUTSIDE RECORDS SUMMARY | 2023-11-16 17:04 | XMS_ITS | Encounter Summary ---
Author Organization [facility] Address [address] [place] [address] Care Team Providers Care Nanotechnologist Name Role Phone César Robert MD, Naina Primary Care Provider [phone] Reason for Visit * Reason Onset Date Comments Appointment Related 09/29/2019 Encounter Details Date Type Department Care Team (Late st Contact Info) Description 09/29/2019 Telephone [facility] Rehabilitation Therapy - [address] [address] Therapy, Physical Appointment Related Social History Tobacco [...] PT, DPT and Ramin Samuel ATP from [employer]. She confirmed their availability for this date/time. Gretchen Dietz MA 09/29/2019 11:11 documented in this encounter Plan of Treatment Not on file documented as of this encounter Visit Diagnoses Not on filedocumented in this encounter Care Teams Nanotechnologist Relationship Specialty Start Date End Date Naina Lindsey MD [address] [place] [address] PCP - General 02/13/15 documented as of this encounter
--- OUTSIDE RECORDS SUMMARY | 2023-11-16 17:04 | XMS_ITS | Encounter Summary ---
Author Organization [facility] Address [facility] [place] [address] Care Team Providers Care Customer Care Associate Name Role Phone Naina Lindsey MD Primary Care Provider [phone] Encounter Details Date Type Department Care Team (Late st Contact Info) Description 08/15/2010 7:43 AM EDT Anesthesia [place] [address] Erika Curtis MD [facility] [place] [address] Anesthesia Record Procedure Summary Procedure Name Responsible [...] patient, father and mother. Plan discussed with TREADLE CUT OFF SAW OPERATOR. documented in this encounter Miscellaneous Notes [...] EDT TH Visit (TeleHealth) [place] [address] Lilli Joy APRN [facility] [place] [address] 12/03/2023 12:30 PM EDT Office [place] [address] Hollie Ambriz MD [facility] [place] [address] 12/03/2023 2:30 PM EDT [place] [phone] Andrade Melvin MD [facility] [place] [address] documented as of this encounter Visit Diagnoses Not on filedocumented in this encounter Care Teams Customer Care Associate Relationship Specialty Start Date End Date Naina Lindsey MD [address] [place] [address] PCP - General 03/19/10 08/25/16 documented as of this encounter
--- OUTSIDE RECORDS SUMMARY | 2023-11-16 17:04 | XMS_ITS | Encounter Summary ---
Author Organization [facility] Address [facility] [place] [address] Care Team Providers Care Jewel Setter Name Role Phone Naina Lindsey MD Primary Care Provider [phone] Reason for Referral * Physical Therapy (Routine) - Complete - Patient Will Schedule External Appt Specialty Diagnoses / Procedures Referred By Karlo t Referred To Contact Physical Therapy Diagnoses Developmental delay Yas Ramirez MD [facility] [place] [address] Referral ID Status Reason Start Date Expiration Date Visits Requested Visits Authorized [id number] Complete - Patient Will Schedule External Appt Evaluate and Treat 09/24/2010 03/23/2011 1 1 Reason for Visit * Reason Comments Follow Up Surgery spica cast Encounter Details Date Type Department Care Team (Late st Contact Info) Description 09/24/2010 2:20 PM EDT [place] [phone] Yas Ramirez MD [facility] [place] [address] Developmental delay (Primary Dx); Traumatic brain injury [...] EDT TH Visit (TeleHealth) Infectious Disease at [address] Lilli Joy APRN [facility] [address] [place] [address] 12/03/2023 12:30 PM EDT Office Visit [place] [address] Hollie Ambriz MD [facility] [place] [address] 12/03/2023 2:30 PM EDT Appointment Radiology at [address] Andrade Melvin MD [facility] [place] [address] Scheduled Referrals Name Type Priority Associated Diagnoses [...] hip documented in this encounter Care Teams Jewel Setter Relationship Specialty Start Date End Date Naina Lindsey MD [address] [place] [address] PCP - General 03/19/10 08/25/16 documented as of this encounter
--- OUTSIDE RECORDS SUMMARY | 2023-11-16 17:04 | XMS_ITS | Encounter Summary ---
Author Organization Formerly [facility] [place] [address] Care Team Providers Care Repairer Helper Name Role Phone Naina Lindsey MD Primary Care Provider Encounter Details Date Type Department Care Team (Late st Contact Info) Description 09/27/2010 Orders [place] [address] Yas Ramirez MD [facility] [place] [address] Muscle spasticity; Acquired dysplasia of hip, bilateral; [...] EDT TH Visit (TeleHealth) [place] [address] Lilli Joy APRN [facility] [place] [address] 12/03/2023 12:30 PM EDT Office [place] [address] Hollie Ambriz MD [facility] [place] [address] 12/03/2023 2:30 PM EDT [place] [address] Andrade Melvin MD [facility] [place] [address] documented as of this encounter Visit Diagnoses Diagnosis Muscle spasticity Spasm of muscle Acquired dysplasia of hip, bilateral Other acquired deformities of hip 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
--- OUTSIDE RECORDS SUMMARY | 2023-11-16 17:04 | XMS_ITS | Encounter Summary ---
Author Organization Formerly [facility] [place] [address] Care Team Providers Care Health Nurse Name Role Phone Naina Lindsey MD Primary Care Provider [phone] Encounter Details Date Type Department Care Team (Late st Contact Info) Description 08/13/2010 Orders Only [place] [phone] Yas Ramirez MD [facility] [place] [address] DDH (developmental dysplasia of the hip) (Primary [...] EDT TH Visit (TeleHealth) [place] [address] [facility] [place] [address] 12/03/2023 12:30 PM EDT Office Visit [place] [address] Hollie Ambriz MD [facility] [place] [address] 12/03/2023 2:30 PM EDT Appointment [place] [address] Andrade Melvin MD [facility] [place] [address] documented as of this encounter Visit Diagnoses Diagnosis DDH (developmental dysplasia of the hip)- Primary Other congenital deformity of hip (joint) documented in this encounter Care Teams Health Nurse Relationship Specialty Start Date End Date Naina Lindsey MD [address] [place] [address] PCP - General 03/19/10 08/25/16 documented as of this encounter
--- OUTSIDE RECORDS SUMMARY | 2023-11-16 17:04 | XMS_ITS | Clinical Summary ---
Author Organization [facility] Address [address] [place] [address] Care Team Providers Care Technical Architect Name Role Phone César Robert MD, Naina Primary Care Provider [phone] Medications Medication Sig Dispensed Refills Start Date [...] appointments, call [facility] dual living providers Kavita: [phone]. No additional problems on file Surgical History [...] COVID-19 Vaccine ( season) 2022 Care Teams Technical Architect Relationship Specialty Start Date End Date Naina Lindsey MD [address] [place] [address] PCP - General 02/13/15
--- OUTSIDE RECORDS SUMMARY | 2023-11-16 17:04 | XMS_ITS | Encounter Summary ---
Author Organization [facility] Address [facility] [place] [place] [address] Care Team Providers Care Recreation Therapy Director Name Role Phone Naina Lindsey MD Primary Care Provider [phone] Reason for Visit * Reason Comments Foot Swelling Encounter Details Date Type Department Care Team (Late st Contact Info) Description 11/04/2010 3:05 PM EDT [place] [phone] Barrera Oliver MD [facility] [address] [place] [address] Acquired dysplasia of hip, bilateral; Edema leg; [...] will be constituted in a cast and orthotics technician with whom I spoke did not [...] EDT TH Visit (TeleHealth) Infectious Disease at [place] [phone] Lilli Joy APRN [facility] [address] [place], [place] [id number] 12/03/2023 12:30 PM EDT Office Visit Infectious Disease at [place] [phone] Hollie Ambriz MD [facility] [place] [address] 12/03/2023 2:30 PM EDT Appointment Radiology at [place] [phone] Andrade Melvin MD [facility] [place] [address] documented as of this encounter Results * Duplex for DVT, Leg, Unilat (11/04/2010 3:55 PM EDT) VB Text Report Department: Vascular Surgery Lab Patient: [id number] (TANA SHELTON) CPT Code: 70630 ICD-9: 729.81 Referring Physician: BARRERA OLIVER Indication: [...] consciousness documented in this encounter Care Teams Recreation Therapy Director Relationship Specialty Start Date End Date Naina Lindsey MD [address] [place] [address] PCP - General 03/19/10 08/25/16 documented as of this encounter
--- OUTSIDE RECORDS SUMMARY | 2023-11-16 17:04 | XMS_ITS | Encounter Summary ---
Author Organization [facility] Address [address] [place] [address] Care Team Providers Care Keypuncher Name Role Phone César Robert MD, Naina Primary Care Provider [phone] Encounter Details Date Type Department Care Team (Late st Contact Info) Description 04/02/2021 Lab Requisition [facility] Pathology & Laboratory Medicine - [address] [address] Outr Resulting Lab, Provider Social History Tobacco [...] Outr Resulting Lab MICROBIOLOGY - GENERAL ORDERABLES [facility] [address] [place] [address] * COVID-19 TESTING (04/02/2021 10:55 EST) COVID-19 rt-PCR Result Negative Negative 04/03/2021 14:17 EST [facility] Comment: This test has not [...] performed using the eve SARS-CoV-2 assay ([employer] on the Eve 6800 System Performing Lab Eve [address] [facility] Lab 04/03/2021 14:17 EST [facility] Swab 04/02/2021 10:5 5 EST 04/02/2021 22:22 EST Provider Outr Resulting Lab MICROBIOLOGY - GENERAL ORDERABLES [facility] [address] [place] [address] documented in this encounter Visit Diagnoses Not on filedocumented in this encounter Care Teams Keypuncher Relationship Specialty Start Date End Date Naina Lindsey MD [address] [place] [address] [place] [address] PCP - General 02/13/15 documented as of this encounter
--- OUTSIDE RECORDS SUMMARY | 2023-11-16 17:04 | XMS_ITS | Encounter Summary ---
Author Organization [facility] Address [address] [place] [address] Care Team Providers Care Lemon Grower Name Role Phone César Robert MD, Naina Primary Care Provider [phone] Encounter Details Date Type Department Care Team (Late st Contact Info) Description 07/01/2023 Lab Requisition [facility] Pathology & Laboratory Medicine - [address] [address] Outr Resulting Lab, Provider Social History Tobacco [...] 85 - 499 mg/dL 07/02/2023 11:39 EST [facility] Blood VENOUS BLOOD / Unknown 07/01/2023 10:52 EST 07/01/2023 21:19 EST Provider Outr Resulting Lab CHEMISTRY & BLOOD GAS ORDERABLES Performing Organization Address City/[facility] Co de Phone Number [facility] [address] [place] [address] * (ABNORMAL) IGG (07/01/2023 10:52 EST) IgG 1,631(H) 610 - 1,616 mg/dL 07/02/2023 11:39 EST [facility] Blood VENOUS BLOOD / Unknown 07/01/2023 10:52 EST 07/01/2023 21:19 EST Provider Outr Resulting Lab CHEMISTRY & BLOOD GAS ORDERABLES Performing Organization Address City/[facility] Co de Phone Number [facility] [address] [place], [place] [address] documented in this encounter Visit Diagnoses Not on filedocumented in this encounter Care Teams Lemon Grower Relationship Specialty Start Date End Date Naina Lindsey MD [address] [place] [address] PCP - General 02/13/15 documented as of this encounter
--- OUTSIDE RECORDS SUMMARY | 2023-11-16 17:04 | XMS_ITS | Encounter Summary ---
Author Organization [facility] Address [facility] [place] [address] Care Team Providers Care Screen Door Maker Name Role Phone Naina Lindsey MD Primary Care Provider [phone] Encounter Details Date Type Department Care Team (Latest Contact Info) Description 09/24/2010 1:20 PM EDT - 09/24/2010 11:59 PM EDT Hospital Encounter XRay at [address] [place] [address] Muscle spasticity Social History Tobacco Use Types [...] Visit (TeleHealth) Infectious Disease at [place] [phone] Lilli Joy APRN [facility] [place] [address] 12/03/2023 12:30 PM EDT Office Visit Infectious Disease at [place] [phone] Hollie Ambriz MD [facility] [place] [address] 12/03/2023 2:30 PM EDT Appointment Radiology at [place] [phone] Andrade Melvin MD [facility] [place] [address] documented as of this encounter Procedures Procedure [...] muscle documented in this encounter Care Teams Screen Door Maker Relationship Specialty Start Date End Date Naina Lindsey MD [address] [place] [address] PCP - General 03/19/10 08/25/16 documented as of this encounter
--- OUTSIDE RECORDS SUMMARY | 2023-11-16 17:04 | XMS_ITS | Referral Summary ---
Author Organization [facility] Address [address] [place] [address] Care Team Providers Care Carpet Jack Name Role Phone César Robert MD, Naina Primary Care Provider [phone] Medications Medication Sig Dispensed Refills Start Date [...] appointments, call [facility]ana's dual living providers Kavita: [phone]. No additional problems on file Social History [...] of Treatment Not on file Care Teams Carpet Jack Relationship Specialty Start Date End Date Naina Lindsey MD [address] [place] [address] PCP - General 02/13/15
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
--- OUTSIDE RECORDS SUMMARY | 2023-11-16 17:04 | XMS_ITS | Encounter Summary ---
Author Organization [facility] [place] [address] Care Team Providers Care Locum Tenens Hospitalist Name Role Phone Naina Lindsey MD Primary Care Provider [phone] Reason for Referral * Consultation (Routine) - Complete - Patient Will Schedule External Appt Specialty Diagnoses / Procedures Referred By Contac t Referred To Contact Orthotics Diagnoses Cerebral palsy Yas Ramirez MD [facility] [place] [address] Referral ID Status Reason Start Date Expiration Date Visits Requested Visits Authorized [id number] Complete - Patient Will Schedule External Appt Assume Subset of Care 09/30/2010 03/29/2011 1 1 * Consultation (Routine) - Complete - Patient Will Schedule External Appt Specialty Diagnoses / Procedures Referred By Contac t Referred To Contact Orthotics Diagnoses Cerebral palsy Yas Ramirez MD [facility] [place] [address] Referral ID Status Reason Start Date Expiration Date Visits Requested Visits Authorized [id number] Complete - Patient Will Schedule External Appt Assume Subset of Care 09/30/2010 03/29/2011 1 1 Reason for Visit * Reason Comments Developmental Delay serial casting Encounter Details Date Type Department Care Team (Late st Contact Info) Description 09/30/2010 9:00 AM EDT Follow-Up Orthopaedics at [facility] [place] [address] Yas Ramirez MD [facility] [place] [address] Cerebral palsy (Primary Dx) Discharge Disposition: Home [...] encounter Miscellaneous Notes * Miscellaneous - Delbert Bottle Line Worker - 10/31/2010 9:10 AM EDT documented in this encounter Plan of Treatment Upcoming Encounters Date Type Department Care Team (Late st Contact Info) Description 11/19/2023 2:30 PM EDT TH Visit (TeleHealth) Infectious Disease at [place] [address] Lilli Joy APRN [facility] [place] [address] 12/03/2023 12:30 PM EDT Office Visit Infectious Disease at [place] [address] Hollie Ambriz MD [facility] [place] [address] 12/03/2023 2:30 PM EDT Appointment Radiology at [place] [address] Andrade Melvin MD [facility] [place] [address] Scheduled Referrals Name Type Priority Associated Diagnoses Orde r Schedule REFERRAL FOR ORTHOTICS Outpatient Referral Routine Cerebral palsy Ordered: 09/30/2010 REFERRAL FOR ORTHOTICS Outpatient Referral Routine Cerebral palsy Ordered: 09/30/2010 documented as of this encounter Visit Diagnoses Diagnosis Cerebral palsy- Primary Infantile cerebral palsy, unspecified documented in this encounter Care Teams Locum Tenens Hospitalist Relationship Specialty Start Date End Date [place]ain[place] [address] PCP - General 03/19/10 08/25/16 documented as of this encounter
--- OUTSIDE RECORDS SUMMARY | 2023-11-16 17:04 | XMS_ITS | Encounter Summary ---
Author Organization [facility] [place] [address] Care Team Providers Care Laser Beam Color Scanner Operator Name Role Phone Naina Lindsey MD Primary Care Provider [phone] Encounter Details Date Type Department Care Team (Late st Contact Info) Description 08/19/2010 Orders [place] [phone] [facility] [place] [address] Social History Tobacco Use Types Packs/Day Years [...] EDT TH Visit (TeleHealth) [place] [phone] Lilli Joy APR[place] [facility] [place] [address] 12/03/2023 12:30 PM EDT Office [place] [phone] [facility] [place] [address] 12/03/2023 2:30 PM EDT [place] [phone] [facility] [place] [address] documented as of this encounter Visit Diagnoses Not on filedocumented in this encounter Care Teams Laser Beam Color Scanner Operator Relationship Specialty Start Date End Date Naina Lindsey MD [address] [place] [address] [place] [address] PCP - General 03/19/10 08/25/16 documented as of this encounter
--- OUTSIDE RECORDS SUMMARY | 2023-11-16 17:04 | XMS_ITS | Encounter Summary ---
Author Organization [facility] Address [address] [place] [address] Care Team Providers Care Truck Rental Manager Name Role Phone César Robert MD, Naina Primary Care Provider [phone] Reason for Visit * Reason Onset Date Comments Appointment Related 10/31/2019 Encounter Details Date Type Department Care Team (Late st Contact Info) Description 10/31/2019 Telephone [facility] Rehabilitation Therapy - [address] [id number] Therapy, Physical Appointment Related Social History Tobacco [...] occur in two business days time at [facility] Gretchen Dietz MA 10/31/2019 14:41 documented in this encounter Plan of Treatment Not on file documented as of this encounter Visit Diagnoses Not on filedocumented in this encounter Care Teams Truck Rental Manager Relationship Specialty Start Date End Date Naina Lindsey MD [address] [place] [address] PCP - General 02/13/15 documented as of this encounter
--- OUTSIDE RECORDS SUMMARY | 2023-11-16 17:04 | XMS_ITS | Encounter Summary ---
Author Organization [facility] Address [address] [place] [address] Care Team Providers Care Jde Developer Name Role Phone César Robert MD, Naina Primary Care Provider [phone] Reason for Visit * Reason Onset Date Comments Appointment Related 04/04/2019 Encounter Details Date Type Department Care Team (Late st Contact Info) Description 04/04/2019 Telephone [facility] Rehabilitation Therapy - [address] [phone] Therapy, Physical Appointment Related Social History Tobacco [...] on filedocumented in this encounter Care Teams Jde Developer Relationship Specialty Start Date End Date Naina Lindsey MD [address] [place], [place] [phone] PCP - General 02/13/15 documented as of this encounter
--- OUTSIDE RECORDS SUMMARY | 2023-11-16 17:04 | XMS_ITS | Encounter Summary ---
Author Organization [facility] [address] Care Team Providers Care Mathematics Instructor Name Role Phone Naina Lindsey MD Primary Care Provider [phone] Reason for Visit * Reason Comments Cerebral Palsy Encounter Details Date Type Department Care Team (Late st Contact Info) Description 09/05/2010 1:00 PM EDT Office [place] [phone] CLINIC, DR [place] Muscle spasticity (Primary Dx) [...] Visit (TeleHealth) [place] [phone] Lilli Joy [place] [address] 12/03/2023 12:30 PM EDT Office [place] [address] Hollie Ambriz MD [facility] INFECTIOUS DISEASE [place], [place] [phone] 12/03/2023 2:30 PM EDT Appointment Radiology at [place] [phone] Andrade Melvin MD [facility] [place] [address] documented as of this encounter Visit Diagnoses Diagnosis Muscle spasticity- Primary Spasm of muscle documented in this encounter Care Teams Mathematics Instructor Relationship Specialty Start Date End Date Naina Lindsey MD [address] [place] [address] PCP - General 03/19/10 08/25/16 documented as of this encounter
--- OUTSIDE RECORDS SUMMARY | 2023-11-16 17:04 | XMS_ITS | Encounter Summary ---
Author Organization [facility] [place] [address] Care Team Providers Care Order Taker Name Role Phone Naina Lindsey MD Primary Care Provider [phone] Encounter Details Date Type Department Care Team (Late st Contact Info) Description 11/04/2010 4:00 PM EDT Office Visit [place] [address] Gloria López, RVT Acquired dysplasia [...] EDT TH Visit (TeleHealth) [place] [address] Lilli Joy, [place] [facility] [place] [address] 12/03/2023 12:30 PM EDT Office [place] [address] Hollie Ambriz MD [facility] [place] [address] 12/03/2023 2:30 PM EDT Appointment Radiology at [facility] [place] [address] Andrade Melvin MD [facility] [place] [address] documented as of this encounter Procedures Procedure Name Priority Date/Time Associated Diagnosis Comments DUPLEX FOR DVT, LEG, UNILAT Routine 11/04/2010 3:55 PM EDT Acquired dysplasia of hip, bilateral Edema leg documented in this encounter Results * Duplex for DVT, Leg, Unilat (11/04/2010 3:55 PM EDT) Pathologist [facility] VB Text Report Department: Vascular Surgery Lab Patient: [id number] (TANA SHELTON) CPT Code: 01116 ICD-9: 729.81 Referring Physician: YAS OLIVER Indication: [...] Edema documented in this encounter Care Teams Order Taker Relationship Specialty Start Date End Date Naina Lindsey MD [address] [place] [place] [address] PCP - General 03/19/10 08/25/16 documented as of this encounter
--- OUTSIDE RECORDS SUMMARY | 2023-11-16 17:04 | XMS_ITS | Encounter Summary ---
Author Organization [facility] Address [address] [place] [address] Care Team Providers Care Skills Instructor Name Role Phone César Robert MD, Naina Primary Care Provider [phone] Encounter Details Date Type Department Care Team (Late st Contact Info) Description 04/24/2023 Lab Requisition [facility] Pathology & Laboratory Medicine - [address] [phone] Outr Resulting Lab, Provider Social History Tobacco [...] Surface Ag Negative Negative 04/24/2023 22:33 EST [facility] Hep C Antibody Negative Negative 04/24/2023 22:33 EST [facility] Hepatitis A Antibody, IgM Negative Negative 04/24/2023 22:33 EST [facility] Comment:The results of this assay can be falsely lowered due to the consumption of Biotin. Hepatitis B Core Ab, Total Negative Negative 04/24/2023 22:33 EST [facility] Blood VENOUS BLOOD / Unknown 04/24/2023 10:00 EST 04/24/2023 21:06 EST Provider Outr Resulting Lab CHEMISTRY & BLOOD GAS ORDERABLES [facility] [address] [place] [address] documented in this encounter Visit Diagnoses Not on filedocumented in this encounter Care Teams Skills Instructor Relationship Specialty Start Date End Date Naina Lindsey MD [address] [place] [address] PCP - General 02/13/15 documented as of this encounter
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
--- OUTSIDE RECORDS SUMMARY | 2023-11-16 17:04 | XMS_ITS | Encounter Summary ---
Author Organization [facility] [address] Care Team Providers Care Lead Esthetician Name Role Phone Naina Lindsey MD Primary Care Provider [phone] Encounter Details Date Type Department Care Team (Late st Contact Info) Description 06/12/2010 9:30 AM EST Follow-[place] [phone] Yas Ramirez MD [facility] [place] [address] Discharge Disposition: Home Social History Tobacco Use [...] EDT TH Visit (TeleHealth) [place] [phone] Lilli Joy APRN [facility] [place] [address] 12/03/2023 12:30 PM EDT Office Visit [place] [phone] Hollie Ambriz MD [facility] [place] [address] 12/03/2023 2:30 PM EDT Appointment [place] [address] Andrade Melvin MD [facility] [place] [address] documented as of this encounter Visit Diagnoses Not on filedocumented in this encounter Care Teams Lead Esthetician Relationship Specialty Start Date End Date Naina Lindsey [place] [address] PCP - General 03/19/10 08/25/16 documented as of this encounter
--- OUTSIDE RECORDS SUMMARY | 2023-11-16 17:04 | XMS_ITS | Encounter Summary ---
Author Organization [facility] Address [address] [place] [address] Care Team Providers Care Drilling Field Operator Name Role Phone César Robert MD, Naina Primary Care Provider [phone] Encounter Details Date Type Department Care Team [...] Outpatient Rehab Plan of Care REHABILITATION THERAPIES [facility] REHABILITATION THERAPY - [address] [address] Physical Therapy Progress Note Date of Service: [...] verbalized understanding Team Communication: MYA Pleitez from [facility] and two of Tana's caregivers were present and participated in this entire visit. A: The custom mold was created for Tana's new custom seating system. 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 Automatic Vulcanizing Lead Operator Goals: 8 weeks Will have a wheeled [...] Cc: Referring Provider: LIZETH Sandoval ATP from [facility] Rehabilitation Therapies [facility] Fax: [phone] WHEELCHAIR PRESCRIPTION 05/06/2019 Tana Cavazos 1995 [address] [place] [address] (home) [phone] (work) Insurance Policy Number 1. [place] Medicaid ACO [id number] Medical/Surgical History: Current: There is no problem [...] elbow (90 degrees)-n/a Component Wheelchair Description Justification Import/Export Specialist, style and model USE EXISTING WHEELCHAIR Chair [...] on the mold. ?? Incontinent cover ?? Bison headrest mounting plate ?? Bison headrest mount ?? To accommodate .Tana's fixed [...] Referring Provider: Lorna Bal NP Funding at [facility] Plan ATTENDING PHYSICIAN: Your [...] on filedocumented in this encounter Care Teams Drilling Field Operator Relationship Specialty Start Date End Date Naina Lindsey MD [address] [place] [address] PCP - General 02/13/15 documented as of this encounter
--- OUTSIDE RECORDS SUMMARY | 2023-11-16 17:04 | XMS_ITS | Encounter Summary ---
Author Organization [facility] Address [address] [place] [address] Care Team Providers Care Etl Informatica Developer Name Role Phone César Robert MD, Naina Primary Care Provider [phone] Reason for Visit * Reason Onset Date Comments Appointment Related 10/25/2019 Encounter Details Date Type Department Care Team (Late st Contact Info) Description 10/25/2019 Telephone [facility] Rehabilitation Therapy - [address] [id number] Therapy, Physical Appointment Related Social History Tobacco [...] wheelchair clinic appointment, to occur tomorrow at [facility]. They confirmed their availability for this date/time. Gretchen Dietz MA 10/25/2019 15:15 documented in this encounter Plan of Treatment Not on file documented as of this encounter Visit Diagnoses Not on filedocumented in this encounter Care Teams Etl Informatica Developer Relationship Specialty Start Date End Date Naina Lindsey MD [address] [place], [place] [id number] PCP - General 02/13/15 documented as of this encounter
--- OUTSIDE RECORDS SUMMARY | 2023-11-16 17:04 | XMS_ITS | Encounter Summary ---
Author Organization [facility] Address [address] [place] [address] Care Team Providers Care Home Stereo Equipment Installer Name Role Phone César Robert MD, Naina Primary Care Provider [phone] Reason for Visit * Reason Onset Date Comments Appointment Related 04/06/2019 Encounter Details Date Type Department Care Team (Late st Contact Info) Description 04/06/2019 Telephone [facility] Rehabilitation Therapy - [address] [phone] Therapy, Physical Appointment Related Social History Tobacco [...] [facility] This is a re-schedule from today as the vendor was ill. Gretchen Dietz MA 04/06/2019 11:26 documented in this encounter Plan of Treatment Not on file documented as of this encounter Visit Diagnoses Not on filedocumented in this encounter Care Teams Home Stereo Equipment Installer Relationship Specialty Start Date End Date Naina Lindsey MD [address] [place], [place] [address] PCP - General 02/13/15 documented as of this encounter
--- OUTSIDE RECORDS SUMMARY | 2023-11-16 17:04 | XMS_ITS | Encounter Summary ---
Author Organization [facility] Address [address] [place] [address] Care Team Providers Care Sorority Mother Name Role Phone César Robert MD, Naina Primary Care Provider [phone] Reason for Visit * Reason Onset Date Comments DME 08/11/2019 Encounter Details Date Type Department Care Team (Late st Contact Info) Description 08/11/2019 Telephone [facility] Rehabilitation Therapy - [facility] [address] [place], [place] [address] Candelaria Jaquez, ELVIRA [address] [place] [address] DME Social History Tobacco Use [...] on filedocumented in this encounter Care Teams Sorority Mother Relationship Specialty Start Date End Date Naina Lindsey MD [address] [place] [address] PCP - General 02/13/15 documented as of this encounter
--- OUTSIDE RECORDS SUMMARY | 2023-11-16 17:05 | XMS_ITS | Encounter Summary ---
Author Organization [facility] Address [address] [place] [address] Care Team Providers Care Coil Inspector Name Role Phone César Robert MD, Naina Primary Care Provider [phone] Reason for Visit * Reason Onset Date Comments Appointment Related 05/25/2015 Encounter Details Date Type Department Care Team (Late st Contact Info) Description 05/25/[address] [facility] Rehabilitation Therapy - [address] [address] Therapy, Outpatient, Appointment Related Social History Tobacco [...] on filedocumented in this encounter Care Teams Coil Inspector Relationship Specialty Start Date End Date Naina Lindsey MD [address] [place] [address] PCP - General 02/13/15 documented as of this encounter
--- OUTSIDE RECORDS SUMMARY | 2023-11-16 17:05 | XMS_ITS | Encounter Summary ---
Author Organization [facility] Address [address] [place] [address] Care Team Providers Care In Flight Refueling Operator Name Role Phone César Robert MD, Naina Primary Care Provider Encounter Details Date Type Department Care Team (Latest Contact Info) Description 12/04/2015 19:02 EDT - 12/04/2015 23:59 EDT Hospital Encounter [facility] [address] [place] [address] Leonid Candelaria, PT [address] [place] [id number] Andrade Lux MD [address] [facility] [address] [phone] Naina Lindsey MD [address] [place], [place] [address] Discharge Disposition: Auto Discharge Social History Tobacco [...] this encounter Care Teams In Flight Refueling Operator Relationship Specialty Start Date End Date Naina Lindsey MD [address] [place] [address] PCP - General 02/13/15 documented as of this encounter
--- OUTSIDE RECORDS SUMMARY | 2023-11-16 17:05 | XMS_ITS | Encounter Summary ---
Author Organization [facility] Address [address] [place] [address] Care Team Providers Care B2B Managed Service Sales Exec Name Role Phone César Robert MD, Naina Primary Care Provider [phone] Reason for Visit * Reason Onset Date Comments Appointment Related 03/30/2015 Encounter Details Date Type Department Care Team (Late st Contact Info) Description 03/30/2015 Telephone [facility] Rehabilitation Therapy - [address] [address] Therapy, Outpatient, Appointment Related Social History Tobacco [...] on filedocumented in this encounter Care Teams B2B Managed Service Sales Exec Relationship Specialty Start Date End Date Naina Lindsey MD [address] [place] [address] [place] [address] PCP - General 02/13/15 documented as of this encounter
--- OUTSIDE RECORDS SUMMARY | 2023-11-16 17:05 | XMS_ITS | Encounter Summary ---
Author Organization [facility] Address [address] [place] [address] Care Team Providers Care Pacs Specialist Name Role Phone César Robert MD, Naina Primary Care Provider [phone] Reason for Visit * Reason Onset Date Comments Appointment Related 02/13/2015 Encounter Details Date Type Department Care Team (Late st Contact Info) Description 02/13/2015 Telephone [facility] Rehabilitation Therapy - [address] [address] Therapy, Outpatient, Appointment Related Social History Tobacco Use Types Packs/Day Years Used Date Smoking Tobacco: Never Assessed Sex and Gender Information Value Date Recorded Sex Assigned at Not on file Gender Identity Not on file Sexual Orientation Not on file documented as of this encounter Miscellaneous Notes * Telephone Encounter - Mile Ronquillo - 02/13/2015 1102 EDT [facility] [address] [address] Person providing information? Mother Guardian: Mother Phone number: [phone] 1. Who recommended that you be seen [...] device? Smart Talk Who prescribed/acquired for you? [place] AT project -through the school 24. Do you have any other requests, comments, questions you would like to add prior to your appt? Smart talk needs to work with chair better 25. To whom should we send an additional questionnaire (if needed)? -- [facility] - [address] [address] Telephone Intake Information for Scheduling NEW Patients [...] 30 total therapy visits (PT, OT, and SECURITY PROGRAM MANAGER combined) between 04-27-14 and 04-26-15. If the patient has exceeded 30 visits already, further therapy will not be covered by their insurance. Date: Tuesday April 07, 2015 Therapist: Candelaria Jaquez, PT @ 1:15 Location: [facility] Name of Supplier: [facility] Name of Rep: Ramin @ 1:45 Reason For Appt: manual Vs. Power Pressure Mapping? no Mile Ronquillo documented in this encounter Plan of Treatment Not on file documented as of this encounter Visit Diagnoses Not on filedocumented in this encounter Care Teams Pacs Specialist Relationship Specialty Start Date End Date Naina Lindsey MD [address] [place] [address] PCP - General 02/13/15 documented as of this encounter
--- OUTSIDE RECORDS SUMMARY | 2023-11-16 17:05 | XMS_ITS | Encounter Summary ---
Author Organization [facility] Address [address] [place] [address] Care Team Providers Care Seater Assembler Name Role Phone César Robert MD, Naina Primary Care Provider [phone] Reason for Visit * Reason Onset Date Comments Appointment Related 11/26/2018 Encounter Details Date Type Department Care Team (Late st Contact Info) Description 11/26/2018 Telephone [facility] Rehabilitation Therapy - [address] [address] Therapist, Physical, PT Appointment Related Social History [...] on filedocumented in this encounter Care Teams Seater Assembler Relationship Specialty Start Date End Date Naina Lindsey MD [address] [place] [address] [place] [address] PCP - General 02/13/15 documented as of this encounter
--- OUTSIDE RECORDS SUMMARY | 2023-11-16 17:05 | XMS_ITS | Encounter Summary ---
Author Organization [facility] Address [address] [place] [address] Care Team Providers Care Advertising Project Manager Name Role Phone César Robert MD, Naina Primary Care Provider [phone] Reason for Visit * Reason Onset Date Comments Appointment Related 05/14/2015 Encounter Details Date Type Department Care Team (Late st Contact Info) Description 05/14/2015 Telephone [facility] Rehabilitation Therapy - [address] [phone] Therapy, Outpatient, Appointment Related Social History Tobacco [...] on filedocumented in this encounter Care Teams Advertising Project Manager Relationship Specialty Start Date End Date Naina Lindsey [place] [address] PCP - General 02/13/15 documented as of this encounter
--- OUTSIDE RECORDS SUMMARY | 2023-11-16 17:05 | XMS_ITS | Encounter Summary ---
Author Organization [facility] Address [address] [place] [address] Care Team Providers Care Strategic Partnership Representative Name Role Phone César Robert MD, Naina Primary Care Provider [phone] Reason for Visit * Reason Onset Date Comments Appointment Related 07/20/2015 Encounter Details Date Type Department Care Team (Late st Contact Info) Description 07/20/2015 Telephone [facility] Rehabilitation Therapy - [address] [address] Therapy, Outpatient, Appointment Related Social History Tobacco [...] on filedocumented in this encounter Care Teams Strategic Partnership Representative Relationship Specialty Start Date End Date Naina Lindsey MD [address] [place] [address] PCP - General 02/13/15 documented as of this encounter
--- OUTSIDE RECORDS SUMMARY | 2023-11-16 17:05 | XMS_ITS | Encounter Summary ---
Author Organization [facility] Address [address] [place] [address] Care Team Providers Care Water Taxi Boat Mate Name Role Phone César Robert MD, Naina Primary Care Provider [phone] Reason for Visit * Reason Onset Date Comments Appointment Related 03/01/2015 Encounter Details Date Type Department Care Team (Late st Contact Info) Description 03/01/2015 Telephone [facility] Rehabilitation Therapy - [address] [phone] Therapy, Outpatient, Appointment Related Social History Tobacco [...] by Candelaria Jaquez PT and Phyllis Whitman CCC-GREEN CHAIN WORKER : Phyllis indicates she may need to do a Speech Language Evaluation for this patient. I have called and relayed this information to the patient's mother : Patient is part of the [facility] - being seen by their Speech Language Pathologists : Zina Thomas and Osman Rodriguez. Per Phyllis's: GREEN CHAIN WORKER notes need to be obtained so that she can determine the length/scope of the patient's SLE appointment so that it may be properly scheduled. I will contact the [facility] to request these records. documented in this encounter Plan of Treatment Not on file documented as of this encounter Visit Diagnoses Not on filedocumented in this encounter Care Teams Water Taxi Boat Mate Relationship Specialty Start Date End Date Naina Lindsey MD [address] [place] [address] PCP - General 02/13/15 documented as of this encounter
--- OUTSIDE RECORDS SUMMARY | 2023-11-16 17:05 | XMS_ITS | Encounter Summary ---
Author Organization [facility] Address [address] [place] [address] Care Team Providers Care Instrument Maker And Repairer Name Role Phone César Robert MD, Naina Primary Care Provider [phone] Reason for Visit * Reason Onset Date Comments Other 01/04/2016 Encounter Details Date Type Department Care Team (Late st Contact Info) Description 01/04/2016 Telephone [facility] Rehabilitation Therapy - [address] [phone] Therapy, Outpatient, Other Social History Tobacco Use Types Packs/Day Years Used Date Smoking Tobacco: Never Assessed Sex and Gender Information Value Date Recorded Sex Assigned at Not on file Gender Identity Not on file Sexual Orientation Not on file documented as of this encounter Miscellaneous Notes * Telephone Encounter - Miel Ronquillo - 01/04/2016 1112 EDT Patients mother [...] I have spoken to Oliver Lozano at [facility], but he could not see in their paperwork a clear delivery timeframe. I have sent an e-mail to Ramin Samuel and Amna Giraldo at [facility] asking that someone call Javed and give her an estimate of when the chair will be delivered. documented in this encounter Plan of Treatment Not on file documented as of this encounter Visit Diagnoses Not on filedocumented in this encounter Care Teams Instrument Maker And Repairer Relationship Specialty Start Date End Date Naina Lindsey MD [address] [place] [address] PCP - General 02/13/15 documented as of this encounter
--- OUTSIDE RECORDS SUMMARY | 2023-11-16 17:05 | XMS_ITS | Encounter Summary ---
Author Organization [facility] Address [address] [place] [address] Care Team Providers Care Leadership Development Instructor Name Role Phone César Robert MD, Naina Primary Care Provider [phone] Reason for Visit * Reason Onset Date Comments Appointment Related 03/03/2019 Encounter Details Date Type Department Care Team (Late st Contact Info) Description 03/03/2019 Telephone [facility] Rehabilitation Therapy - [address] [phone] Therapy, Physical Appointment Related Social History Tobacco [...] for the wheelchair clinic appointment here at [facility] from 02-05. GRETCHEN DIETZ MA 03/03/2019 8:43 documented in this encounter Plan of Treatment Not on file documented as of this encounter Visit Diagnoses Not on filedocumented in this encounter Care Teams Leadership Development Instructor Relationship Specialty Start Date End Date Naina Lindsey MD [address] [place] [address] PCP - General 02/13/15 documented as of this encounter
--- OUTSIDE RECORDS SUMMARY | 2023-11-16 17:05 | XMS_ITS | Encounter Summary ---
Author Organization [facility] Address [address] [place] [address] Care Team Providers Care Model Engine Mechanic Name Role Phone César Robert MD, Naina Primary Care Provider [phone] Reason for Visit * Reason Onset Date Comments Appointment Related 11/30/2015 Encounter Details Date Type Department Care Team (Late st Contact Info) Description 11/30/2015 Telephone [facility] Rehabilitation Therapy - [address] [address] Therapy, Outpatient, Appointment Related Social History Tobacco [...] on filedocumented in this encounter Care Teams Model Engine Mechanic Relationship Specialty Start Date End Date Naina Lindsey MD [address] [place] [place] [address] PCP - General 02/13/15 documented as of this encounter
--- OUTSIDE RECORDS SUMMARY | 2023-11-16 17:05 | XMS_ITS | Encounter Summary ---
Author Organization [facility] Address [address] [place] [address] Care Team Providers Care Automobile Club Membership Sales Agent Name Role Phone César Robert MD, Naina Primary Care Provider [phone] Reason for Visit * Reason Onset Date Comments Appointment Related 03/01/2015 Encounter Details Date Type Department Care Team (Late st Contact Info) Description 03/01/2015 Telephone [facility] Rehabilitation Therapy - [address] [address] Therapy, Outpatient, Appointment Related Social History Tobacco [...] chair. 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 Spoke with patient's student aid from [employer], Mesha Espinal. She indicates that the bracket that holds the Smart Talk device hits every door frame that they go through, and would like this remedied. Mesha states that there are no unmet BLUE PRINTS TRIMMER needs at this time. I indicated to Mesha that Candelaria Jaquez PT should be able to address this need at the patient's Wheelchair Clinic appointment on 04/07/15. documented in this encounter Plan of Treatment Not on file documented as of this encounter Visit Diagnoses Not on filedocumented in this encounter Care Teams Automobile Club Membership Sales Agent Relationship Specialty Start Date End Date Naina Lindsey MD [address] [place] [address] PCP - General 02/13/15 documented as of this encounter
--- OUTSIDE RECORDS SUMMARY | 2023-11-16 17:05 | XMS_ITS | Encounter Summary ---
Author Organization [facility] Address [address] [place] [address] Care Team Providers Care Rivet Hammer Machine Operator Name Role Phone César Robert MD, Naina Primary Care Provider [phone] Encounter Details Date Type Department Care Team (Latest Contact Info) Description 07/24/2015 12:40 EDT - 07/24/2015 23:59 EDT Hospital Encounter [address] [address] Naina Lindsey MD [address] [place], [place] [address] Discharge Disposition: Auto Discharge Social History Tobacco [...] filedocumented in this encounter Care Teams Rivet Hammer Machine Operator Relationship Specialty Start Date End Date Naina Lindsey MD [address] [facility] [place] [address] PCP - General 02/13/15 documented as of this encounter
--- OUTSIDE RECORDS SUMMARY | 2023-11-16 17:05 | XMS_ITS | Encounter Summary ---
Author Organization [facility] Address [address] [place] [address] Care Team Providers Care Wool Hat Finisher Name Role Phone César Robert MD, Naina Primary Care Provider [phone] Encounter Details Date Type Department Care Team (Latest Contact Info) Description 05/29/2015 17:07 EST - 05/29/2015 23:59 EST Hospital Encounter [address] [address] Naina Lindsey MD [address] [place], [place] [address] Discharge Disposition: Home or Self Care Social [...] on filedocumented in this encounter Care Teams Wool Hat Finisher Relationship Specialty Start Date End Date Naina Lindsey MD [address] [facility] [place] [address] PCP - General 02/13/15 documented as of this encounter
--- OUTSIDE RECORDS SUMMARY | 2023-11-16 17:05 | XMS_ITS | Encounter Summary ---
Author Organization [facility] Address [address] [place] [address] Care Team Providers Care Support Engineer Name Role Phone César Robert MD, Naina Primary Care Provider [phone] Reason for Visit * Reason Onset Date Comments Appointment Related 05/14/2015 Encounter Details Date Type Department Care Team (Late st Contact Info) Description 05/14/2015 Telephone [facility] Rehabilitation Therapy - [facility] [address] [place] [address] Therapy, Outpatient, Appointment Related Social [...] the original note were not included. 0 [facility]; [place] [address] May 14, 2015 Dear Javed; Per our conversation, Tana has been scheduled to be seen by the [facility] Wheelchair Assessment Team for an additional power chair evaluation. Your appointment will last for approximately 3 hours and is scheduled for: Date: Friday July 10, 2015 Time: 12:30 Place: [facility] [address] [place] [id number] The evaluation team will include the following people: [facility] Rehabilitation Physical Therapist: Candelaria Jaquez PT Medical Supplier Medical Officer: Ramin from [facility] Please call to pre-register with [facility] prior to your appointment at [phone]. During the evaluation, we would like to [...] unable to make your appointment please call [phone]. *48-hour notice is required for cancellation.* We look forward to seeing you. Mile Ronquillo [facility] Rehabilitation Therapy Center [facility] documented in this encounter Plan of Treatment Not on file documented as of this encounter Visit Diagnoses Not on filedocumented in this encounter Care Teams Support Engineer Relationship Specialty Start Date End Date Naina Lindsey MD [address] [place] [address] PCP - General 02/13/15 documented as of this encounter
--- OUTSIDE RECORDS SUMMARY | 2023-11-16 17:05 | XMS_ITS | Encounter Summary ---
Author Organization [facility] Address [address] [place] [address] Care Team Providers Care Livestock Commission Agent Name Role Phone César Robert MD, Naina Primary Care Provider [phone] Reason for Visit * Reason Onset Date Comments Other 04/03/2015 Encounter Details Date Type Department Care Team (Late st Contact Info) Description 04/03/2015 Telephone [facility] Rehabilitation Therapy - [facility] [address] [place], [place] [id number] Candelaria Jaquez, PT [address] [place] [address] Other Social History Tobacco Use Types Packs/Day Years Used Date Smoking Tobacco: Never Assessed Sex and Gender Information Value Date Recorded Sex Assigned at Not on file Gender Identity Not on file Sexual Orientation Not on file documented as of this encounter Miscellaneous Notes * Telephone Encounter - Candelaria Jaquez, PT - 04/03/2015 1654 EST Opened in error documented in this encounter Plan of Treatment Not on file documented as of this encounter Visit Diagnoses Not on filedocumented in this encounter Care Teams Livestock Commission Agent Relationship Specialty Start Date End Date Naina Lindsey MD [address] [place], [place] [id number] PCP - General 02/13/15 documented as of this encounter
--- OUTSIDE RECORDS SUMMARY | 2023-11-16 17:05 | XMS_ITS | Encounter Summary ---
Author Organization [facility] Address [address] [place] [address] Care Team Providers Care Tool Hardener Name Role Phone César Robert MD, Naina Primary Care Provider Encounter Details Date Type Department Care Team (Latest Contact Info) Description 04/03/2015 9:31 EST - 04/03/2015 23:59 EST Hospital Encounter [address] [address] Naina Lindsey MD [address] [place], [place] [id number] Discharge Disposition: Home or Self Care Social [...] Code Departure Means Destination Home or Self Group Home documented in this encounter Plan of Treatment Not on file documented as of this encounter Visit Diagnoses Not on filedocumented in this encounter Care Teams Tool Hardener Relationship Specialty Start Date End Date Naina Lindsey MD [address] [place] [address] PCP - General 02/13/15 documented as of this encounter
--- OUTSIDE RECORDS SUMMARY | 2023-11-16 17:05 | XMS_ITS | Encounter Summary ---
Author Organization [facility] Address [address] [place] [address] Care Team Providers Care Lozenge Dough Mixer Name Role Phone César Robert MD, Naina Primary Care Provider [phone] Reason for Visit * Reason Onset Date Comments Appointment Related 11/05/2018 Encounter Details Date Type Department Care Team (Late st Contact Info) Description 11/05/2018 Telephone [facility] Rehabilitation Therapy - [address] [address] Therapist, Physical, PT Appointment Related Social History Tobacco Use Types Packs/Day Years Used Date Smoking Tobacco: Never Assessed Sex and Gender Information Value Date Recorded Sex Assigned at Not on file Gender Identity Not on file Sexual Orientation Not on file documented as of this encounter Miscellaneous Notes * Telephone Encounter - Gretchen Dietz - 11/05/2018 1344 EDT [facility] [address] [address] Person providing information? Fernanda - Caregiver Guardian: - Phone number: [phone] 1. Who recommended that you be seen [...] additional questionnaire (if needed)? - Gretchen Dietz [facility] - [address] [address] Telephone Intake Information for Scheduling NEW Patients [...] on filedocumented in this encounter Care Teams Lozenge Dough Mixer Relationship Specialty Start Date End Date Naina Lindsey MD [address] [place] [address] PCP - General 02/13/15 documented as of this encounter
--- OUTSIDE RECORDS SUMMARY | 2023-11-16 17:05 | XMS_ITS | Encounter Summary ---
Author Organization [facility] Address [address] [place] [address] Care Team Providers Care Director Medical Surgical Name Role Phone César Robert MD, Naina Primary Care Provider + [phone] Encounter Details Date Type Department Care Team (Late st Contact Info) Description 08/24/2018 Results Only [facility] [phone] Raul Mak MD [address] [place] [address] Social History Tobacco Use Types Packs/Day Years [...] JOHN SHELTONArthur Hayes ? Accession #: ? [id number] ? : ? 1995 (Age: 23) ??F ? Collect Date: ? 08/24/2018 ? Location: ? [facility] ? Receive Date: ? 08/25/2018 ? Provider: RAUL MAK MD Copy to: JERED MARTINEZ AIR VALVE REPAIRER ? Final Pathologic Diagnosis: UTERUS AND FALLOPIAN [...] and mucin greatest dimension paratubal cyst. ? General Office Clerk sections are submitted as follows: BLOCK MONTOYA 1-2- ??detached left fallopian tube cross-sections and fimbria 3-4- ??attached right fallopian tube cross-sections with paratubal cyst and fimbria 5- bilateral cervix (anterior marked by blue) 6- ??bilateral lower uterine segments (anterior marked by blue ink) 7-9- ??posterior endomyometrium including probable endometrial polyp 10-11- ??anterior endomyometrium construction sales representative sections Dr. Mora 08/26/2018 3:08 PM End of Report [facility] 08/24/2018 11:4 5 EDT 08/25/2018 11:45 EDT Raul Mak MD PATHOLOGY ORDERABLES [facility] [address] [place] [address] documented in this encounter Visit Diagnoses Not on filedocumented in this encounter Care Teams Director Medical Surgical Relationship Specialty Start Date End Date Naina Lindsey MD [address] [place] [address] PCP - General 02/13/15 documented as of this encounter
--- OUTSIDE RECORDS SUMMARY | 2023-11-16 17:05 | XMS_ITS | Encounter Summary ---
Author Organization [facility] Address [address] [place] [address] Care Team Providers Care Computer Aide Name Role Phone César Robert MD, Naina Primary Care Provider [phone] Reason for Visit * Reason Onset Date Comments Appointment Related 11/04/2018 Encounter Details Date Type Department Care Team (Late st Contact Info) Description 11/04/2018 Telephone [facility] Rehabilitation Therapy - [address] [id number] Therapist, Physical, PT Appointment Related Social History [...] filedocumented in this encounter Care Teams Computer Aide Relationship Specialty Start Date End Date Naina Lindsey MD [address] [place] [address] [place], [place] [address] PCP - General 02/13/15 documented as of this encounter
--- OUTSIDE RECORDS SUMMARY | 2023-11-16 17:05 | XMS_ITS | Encounter Summary ---
Author Organization [facility] Address [address] [place] [address] Care Team Providers Care Clinical Appeals Rn Name Role Phone César Robert MD, Naina Primary Care Provider [phone] Encounter Details Date Type Department Care Team (Latest Contact Info) Description 08/24/2018 17:22 EDT - 08/24/2018 23:59 EDT Hospital Encounter [address] [address] Unknown, Provider, Discharge Disposition: Home or Self [...] Code Departure Means Destination Home or Self Assisted documented in this encounter Plan of Treatment Not on file documented as of this encounter Visit Diagnoses Not on filedocumented in this encounter Care Teams Clinical Appeals Rn Relationship Specialty Start Date End Date Naina Lindsey MD [address] [place] [address] [place] [address] PCP - General 02/13/15 documented as of this encounter
--- OUTSIDE RECORDS SUMMARY | 2023-11-16 17:05 | XMS_ITS | Encounter Summary ---
Author Organization [facility] Address [address] [place] [address] Care Team Providers Care Revenue Research Analyst Name Role Phone César Robert MD, Naina Primary Care Provider [phone] Encounter Details Date Type Department Care Team (Latest Contact Info) Description 11/30/2018 12:49 EDT - 11/30/2018 23:59 EDT Hospital Encounter [address] [address] Lorna Bal, ASSEMBLY MEMBER [address] [facility] [address] [place] [phone] Discharge Disposition: Auto Discharge Social History Tobacco [...] on filedocumented in this encounter Care Teams Revenue Research Analyst Relationship Specialty Start Date End Date Naina Lindsey MD [address] [place] [address] PCP - General 02/13/15 documented as of this encounter
--- OUTSIDE RECORDS SUMMARY | 2023-11-16 17:05 | XMS_ITS | Encounter Summary ---
Author Organization [facility] Address [address] [place] [address] Care Team Providers Care Geological Specialist Name Role Phone César Robert MD, Naina Primary Care Provider [phone] Reason for Visit * Reason Onset Date Comments Appointment Related 03/02/2019 Encounter Details Date Type Department Care Team (Late st Contact Info) Description 03/02/2019 Telephone [facility] Rehabilitation Therapy - [address] [address] Therapy, Physical Appointment Related Social History Tobacco Use Types Packs/Day Years Used Date Smoking Tobacco: Never Assessed Sex and Gender Information Value Date Recorded Sex Assigned at Not on file Gender Identity Not on file Sexual Orientation Not on file documented as of this encounter Miscellaneous Notes * Telephone Encounter - Gretchen Dietz MA - 03/02/2019 1016 EST Voicemail message left for this patient asking that she call back into the wheelchair clinic at [phone] to confirm her availability for a custom molding appointment here at [facility] with Candelaria Jaquez, PT, DPT and Ramin Samuel ATP from [employer] for Thu04/06/19, 02-05. GRETCHEN DIETZ MA 03/02/2019 15:46 documented in this encounter Plan of Treatment Not on file documented as of this encounter Visit Diagnoses Not on filedocumented in this encounter Care Teams Geological Specialist Relationship Specialty Start Date End Date Naina Lindsey MD [address] [place] [address] PCP - General 02/13/15 documented as of this encounter
== END 2023-11-16 16:53 | disposition home or self-care (01) ==
LOC: LBN 16:52
PROVIDERS: PCP Nurse Practitioner Family; Visit Provider Internal Medicine
DX: L02.818 Cutaneous abscess of other sites (principal); R79.82 Elevated C-reactive protein (CRP); R79.89 Other specified abnormal findings of blood chemistry
CPT/HCPCS: 80053; 85025; 86140

== ENCOUNTER 2023-11-23 16:31 | Outpatient (REF) | payer MEDICAID, SELFPAY ==
[2023-11-23 13:40] LABS: Abs Immature Grans 0.01 10^3/uL (0.0-0.06); Absolute Basophil Count 0.03 10^3/uL (0.0-0.2); Absolute Eosinophil Count 0.11 10^3/uL (0.0-0.7); Absolute Lymphocyte Count 1.57 10^3/uL (1.2-3.4); Absolute Monocyte Count 0.38 10^3/uL (0.1-0.8); Basophils % 0.7 %; Eosinophils % 2.5 %; HCT 37.2 % (36.0-46.0); HGB 12.2 g/dL (11.2-15.7); Immature Grans % 0.2 %; Lymphocytes % 35.7 %; MCH 28.2 pg (27.0-33.0); MCHC 32.8 % (32.0-36.0); MCV 86 fL (80-95); MPV 10.2 fL (8.0-11.0); Monocytes % 8.6 %; Neutrophils % 52.3 %; Platelet Count 269 10^3/uL (130-400); RBC 4.32 10^6/uL (3.93-5.22); RDW 15.2 % (11.7-14.6); RDW-SD 47.7 fL
[2023-11-23 13:49] LABS: ALT 83 U/L (14-59); AST 40 U/L (15-37); Albumin 3.3 g/dL (3.4-5.0); Alkaline Phosphatase 201 U/L (46-116); Anion Gap 8.2 mmol/L (3-11); BUN 16 mg/dL (7-18); Bilirubin, Total 0.22 mg/dL (0.2-1.0); C-Reactive Protein 2.24 mg/dL (<or=0.5); CO2 29.8 mmol/L (21.0-32.0); CREATININE 0.3 mg/dL (0.55-1.02); Calcium 9.3 mg/dL (8.5-10.1); Chloride 107 mmol/L (98-107); Estimated GFR 146.26 (mL/min/1.73m2); Glucose 90 mg/dL (74-106); Potassium 3.8 mmol/L (3.5-5.1); Sodium 145 mmol/L (136-145); Total Protein 7.6 g/dL (6.4-8.2)
--- OUTSIDE RECORDS SUMMARY | 2023-11-23 16:33 | XMS_ITS | Encounter Summary ---
Author Organization [facility] Address [facility] [place] [address] Care Team Providers Care Human Resources Services Specialist Name Role Phone Lorna Bal APRN Primary Care Provider [phone] Encounter Details Date Type Department Care Team (Late st Contact Info) Description 11/09/2023 Telephone [place] [phone] Yas Tracy, RN Social History Tobacco Use Types Packs/Day Years Used Date Smoking Tobacco: Never Passive Smoke Exposure: Never Smokeless Tobacco: Never Comments:NO SMOKERS IN THE H OME Alcohol Use Standard Drinks/Week Comments No 0 (1 standard drink = 0.6 oz pur e alcohol) [facility] Utilities Answer Date Recorded In the past 12 months has e electric, gas, oil, or water [employer] threatened to shut off services in your [...] any time in the past 12 m [facility], were you homeless or living in a residential (including now)? No 10/29/2023 IPV Inpatient Questions [...] Care Team (Late st Contact Info) Description 11/25/2023 2:00 PM EDT TH Visit (TeleHealth) [place] [phone] Lilli Joy APRN [facility] [place] [address] 12/03/2023 12:30 PM EDT Office [place] [phone] Hollie Ambriz MD [facility] [place] [address] 12/03/2023 2:30 PM EDT Hospital Encounter Radiology at [facility] [place] [place] [phone] Andrade Melvin MD [facility] [place] [address] documented as of this encounter Visit Diagnoses Not on filedocumented in this encounter Care Teams Human Resources Services Specialist Relationship Specialty Start Date End Date Lorna Bal APRN [address] [place] [address] PCP - General Family Medicine 05/27/18 documented as of this encounter
--- OUTSIDE RECORDS SUMMARY | 2023-11-23 16:33 | XMS_ITS | Continuity of Care Document ---
Author Organization [facility] Address [address] [place] [address] Assessment Encounter Date Assessment Date Assessment LastModified by Organization Details LastModified Time 11/10/2023 11/10/2023 The total time devoted to today's encounter, including both the axbe-fd-ajif time with the patient and/or family/caregiv er and afj-nfes-fn-fa ce time I personally spent is 35 minutes. Hospital admission: 7.3.204 Hospital discharge 7.9.24. Chronic progressive care unit registered nurse reach out 7.10.24 FU in office: [...] 6.5 % ear drops 2023 024 [facility] [place], [address], 11/10/2023 10:38:18 cholecalc iferol (vitamin D3) 125 mcg (5,000 unit) tablet 2023 024 [facility] [place], [address], 11/10/2023 11:06:20 baclofen 15 mg tablet 2023 024 [facility] [place], [address], 11/10/2023 10:38:17 Patient TargetsNo targets recorded. Patient [...] ICD-10; LORNA MARTINEZ, [place] [address], [place], [address] , [place] - [facility] 3 06:06:35 Tetraplegia Active 201609/02/2018 - Comments only - Lorna Martinez RIB KNITTER - with cognitive dysfunction, scoliosis, spasticity, hypotnoia, chronic pains, contractures with pressure ulcers to bilateral heels. Overall stable and well cared for. 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 Order mesh slings, caregiver will contact [facility] to see if the ones needed are available through them since not able to get through [facility]. Needs new TLSO for her back, [...] Problem Code Type: ICD-10; [address], [place], [address] , [facility] 3 06:06:34 Scoliosis deformity of spine Active 2016 Problem Code: M41.9; Problem Code Type: ICD-10; [address], [place], [address] , [facility] 3 06:06:35 Spasm Active 201603/02/2017 - Comments only - Emelyn Easley MD - Patient will need on going physical therapy to help prevent worsening spasticity and contractures. Problem Code: R25.2; Problem Code Type: ICD-10; [address], [place], [address] , [facility] 3 06:06:35 Idiopathic urticaria Active 2016 Problem Code: L50.1; Problem Code Type: ICD-10; [address], [place], [address] , [facility] 3 06:06:35 Supraventricu lar tachycardia Active 201606/08/2017 - Comments only - Lorna Martinez APRN - monitor for now. Problem Code: I47.1; Problem Code Type: ICD-10; [address], [place], [address] , [facility] 3 06:06:35 Traumatic or non-traumatic injury Active 2016 Problem Code: T14.90; Problem Code Type: ICD-10; [address], [place], [address] , [facility] 3 06:06:35 Disorder of muscle Active 201610/20/2016 - Comments only - Emelyn Easley MD - This causes some constipation that has been improved by miralax. Problem Code: M62.9; Problem Code Type: ICD-10; LORNA MARTINEZ APRN [address], [place], [address] , [facility] 3 06:06:35 Adult health examination Active 201610/20/2016 [...] ICD-10; LORNA MARTINEZ APRN [address], [place], [address] , [facility] 3 06:06:35 Impacted cerumen of bilateral ears Completed 201609/29/2016 09/15/2016 - Comments only - Jade Arevalo APPLICATIONS SPECIALIST - Rev'd procedure for cerumen removal using [...] H61.23; Problem Code Type: ICD-10; Not Available [facility] 3 03:53:19 Impacted cerumen Active 201612/03/2016 - Comments only - Jade Arevalo APPLICATIONS SPECIALIST - - Cerumen not impacted today. Recommended to continue regular checks at future visits, discussed appropriate ear hygiene, and advised f/u for development of symptoms such as ear pulling/pain or trouble hearing. The patient verbalized understanding and agreement to this care plan. Problem Code: H61.20; Problem Code Type: ICD-10; [address], [place], [address] , [facility] 3 06:06:35 Pre-surgery evaluation Completed 201601/09/2017 12/26/2016 - Comments only - Jade Arevalo APPLICATIONS SPECIALIST - - Pt presents for pre-op physical as she is having a DEXA scan on 12/30 at [facility] and they have requested that she has a physical within the last 30 days. There are no concerns raised by her aid who is with her, and no findings on exam that suggest she should not move forward with procedure as scheduled. Problem Code: Z01.818; Problem Code Type: ICD-10; Not Available [facility] 3 03:53:19 Contracture of joint of hand Active 201606/08/2017 - Comments only - Lorna Martinez APRN - continue wearing splint during the day. Wash cloth in her hand while sleeping. Continue with routine stretching and movement as able. Problem Code: M24.549; Problem Code Type: ICD-10; [address], [place], [address] , [facility] 3 06:06:35 History of skin and/or subcutaneous tissue disease Active 201706/08/2017 - Comments only - Lorna Martinez APRN - has seen podiatry. Monitor feet routinely. Problem Code: Z87.2; Problem Code Type: ICD-10; [address], [place], [address] , [facility] 3 06:06:35 Disorder of tooth development Completed 201703/11/2018 Problem Code: K00.9; Problem Code Type: ICD-10; Not Available [facility] 3 03:53:19 Exposure to communicable disease Completed 202004/03/2021 Problem Code: Z20.828; Problem Code Type: ICD-10; Not Available [facility] 3 03:53:20 Localized eruption of skin Completed 202112/08/2021 Problem Code: R21; Problem Code Type: ICD-10; Not Available [facility] 3 03:53:20 Disorder of skin appendage Completed 202112/08/2021 Problem Code: L73.9; Problem Code Type: ICD-10; Not Available [facility] 3 03:53:20 Sepsis caused by Escherichia coli Active 202208/07/2022 - Comments only - Lorna Martinez APRN - continue mgmt through specialist. Blood drawn, may not be enough of sample but will send. If not enough, will need to come to office. drawn CBCD, CRP, CMP. Problem Code: A41.51; Problem Code Type: ICD-10; [address], [place] [address] , [facility] 3 06:06:35 Constipation Active 2022 Problem Code: K59.00; Problem Code Type: ICD-Kylie; [address], [place] [address] , [facility] 3 06:06:35 Spinal cord abscess Active [address], [address] 3 06:06:35 High enzyme level in serum Active 2022 Problem Code: R74.8; Problem Code Type: ICD-10; [address], [facility] [address] , [facility] 3 06:06:35 Anemia Active 2022 Problem Code: D64.9; Problem Code Type: ICD-10; [address], [facility] [address] , [facility] 3 06:06:35 Vitamin D deficiency Active 2022 4.4.24- After completes current HD vitamin D she is to change to vitamin D 5000 IU once a day khb. [address], [facility] [address] , [facility] 4 07:57:05 Osteomyelitis Active 2022 Problem Code: M86.9; Problem Code Type: ICD-10; [address], [address] 3 06:06:35 Congenital deformity of spine Active 2022 Problem Code: Q67.5; Problem Code Type: ICD-10; [address], [facility] [address] [place] [address] 3 06:06:35 Chronic osteomyelitis with draining sinus Active 2022 Problem Code: M86.48; Problem Code Type: ICD-10; [address], [facility] [address] [place] [address] 3 06:06:35 Fever Completed 202011/07/2021 Problem Code: R50.9; Problem Code Type: ICD-10; Not Available [facility] 3 03:53:22 Pain of toe of left foot Completed 201603/02/2017 Problem Code: M79.675; Problem Code Type: ICD-10; Not Available [facility] 3 03:53:23 Tinea pedis Completed 201607/17/2020 Problem Code: B35.3; Problem Code Type: ICD-10; Not Available [facility] 3 03:53:23 Device in situ Completed 201609/02/2018 Problem Code: Z97.8; Problem Code Type: ICD-10; Not Available [facility] 3 03:53:24 Closed fracture of lower leg Completed 201607/17/2020 Problem Code: S82.90xD; Problem Code Type: ICD-10; Not Available [facility] 3 03:53:27 Pain of right wrist Completed 202011/07/2021 Problem Code: M25.531; Problem Code Type: ICD-10; Not Available [facility] 3 03:53:27 Disorder of skin and/or subcutaneous tissue Completed 201807/17/2020 Problem Code: L98.9; Problem Code Type: ICD-10; Not Available [facility] 3 03:53:28 Pain in right hip joint Completed 202011/07/2021 Problem Code: M25.551; Problem Code Type: ICD-10; Not Available [facility] 3 03:53:30 Muscle pain Completed 202011/07/2021 Problem Code: M79.10; Problem Code Type: ICD-10; Not Available [facility] 3 03:53:32 Pain in right lower limb Completed 201607/17/2020 Problem Code: M79.604; Problem Code Type: ICD-10; Not Available [facility] 3 03:53:32 Vaccine adverse reaction Completed 201911/07/2021 Not Available [facility] 3 03:53:33 Chronic ulcer of foot Completed 201707/17/2020 Problem Code: L97.529; Problem Code Type: ICD-10; Not Available [facility] 3 03:53:33 Accidental fall Completed 201807/17/2020 Not Available [facility] 3 03:53:34 Cellulitis of toe Completed 201605/08/2017 Problem Code: L03.039; Problem Code Type: ICD-10; Not Available [facility] 3 03:53:35 Pre-surgery evaluation Completed 202202/22/2023 Problem Code: Z01.818; Problem Code Type: ICD-10; Not Available [facility] 4 05:38:03 Intertrigo Active 2023 Martha Lopez RN [facility], [facility] 4 09:39:19 Thrombocytosi s Active 2023 LORNA MARTINEZ APRN [address], [address] 4 21:17:57 Impacted cerumen Active 2023 LORNA MARTINEZ APRN [address], [facility] [id number] [place] [address] 4 10:33:20 Notes:*Problem Name: Oliguri a and anuria *Problem Status: active *Comments: *Problem Code: R34 *Problem Code Type: ICD-10 *Note Date: 03/04/2018 Problem Notes None recorded. Medical Equipment None Reported. Allergies Allergen ID Allergen Name Allergen Category Reaction Reaction Severity Criticality Documentation Date Start Date Code Code System Note Provider Name and Address Organization Details Recorded Time 97297 fluoxetin e hydrochlo ride medicatio n other mild Not available 03/06/20232018 11607 4 RxNorm unsur e Aller gyRea ction : 'unsu re'; Not Available [facility] 16:14:36 65150 doxycycli ne Not available rash severe Not available 03/06/20232022 3640 RxNorm Aller gyRea ction : 'Rash , Gastr ointe avelino l,'; Not Available [facility] 16:14:36 Medications Name Sig Start Date Stop Date Status Note LastModified by Organization Details LastModified Time acetamino phen 325 mg tablet Take 3 tablet by mouth every eight hours as needed active Per [facility] d/c summary 02/25/23 Not Available Not [...] eight hours as needed 07/23 completed Per [facility] d/c summary 02/25/23 Not Available Not [...] daily to affected area 07/23 completed Per [facility] d/c summary 02/25/23 Not Available Not [...] three times a day 09/27 completed last [facility] Infectio us note stated Bactrim DS 800-160m g 1 BID Not Available Not Available Not Available sodium chloride 0.9 % (flush) injection syringe Infuse 10ml into venous catheter 2 times a day 07/23 completed Per [facility] d/c summary 02/25/23 Not Available Not Available Not Available Nyamyc 100,000 unit/gram topical powder APPLY TO AFFECTED AREA(S) FOUR TIMES A DAY active Not Available Not Available No t Available ceftriaxo ne 2 gram/50 mL in dextrose (iso-osm) intraveno us piggyback Infuse 2 gram intraven ously once a day Infuse 50ml (2g total) into a venous catheter daily 07/23 completed Per [facility] d/c summary 02/25/23 Not Available Not [...] 12 patch free hours) 07/23 completed Per [facility] d/c summary 02/25/23 Not Available Not [...] Updated DateTime 4 157.48 cm 22.6 kg/m2 69717.9 6 g 97.9 [degF] 97 % 97 % 110 /min 98 mm[Hg] 64 mm[Hg] YOGESH BENDER CMA [place] - [facility] 4 10:12:40 Social History None recorded. Functional [...] Recorded Time MMR 09/16/1994 completed Not Available [facility] 03:50:44 MMR 03/20/1998 completed Not Available [facility] 03:50:45 DTaP, unspecified formulation 05/15/1994 completed Not Available [facility] 03/06/2023 03:50:45 DTaP, unspecified formulation 1993 completed Not Available [facility] 03/06/2023 03:50:45 DTaP, unspecified formulation 1993 completed Not Available [facility] 03/06/2023 03:50:45 DTaP, unspecified formulation 03/07/1994 completed Not Available [facility] 03/06/2023 03:50:45 DTaP, unspecified formulation 03/20/1998 completed Not Available [facility] 03/06/2023 03:50:45 meningococcal ACWY, unspecified formulation 09/15/2011 completed Not Available [facility] 03/06/2023 03:50:46 Td (adult), 5 Lf tetanus toxoid, preservative free, adsorbed 10/20/2016 completed Not Available [facility] 03/06/2023 03:50:46 Tdap 10/22/2018 completed Not Available [facility] 03:50:46 Tdap 11/24/2006 completed Not Available [facility] 03:50:46 Influenza, split virus, quadrivalent, PF 01/15/2021 completed Not Available [facility] 03/06/2023 03:50:47 Influenza, split virus, quadrivalent, PF 02/17/2022 completed [facility] 03/06/2023 03:50:47 Influenza, split virus, quadrivalent, PF 02/28/2019 completed Not Available [facility] 03/06/2023 03:50:48 Influenza, split virus, quadrivalent, PF 04/02/2020 completed Not Available [facility] 03/06/2023 03:50:48 Influenza, split virus, quadrivalent, preservative 03/02/2017 completed Not Available [facility] 03/06/2023 03:50:48 Influenza, split virus, quadrivalent, preservative 03/04/2018 completed Not Available [facility] 03/06/2023 03:50:48 Hib, unspecified formulation 1993 completed Not Available [facility] 03/06/2023 03:50:48 Hib, unspecified formulation 09/16/1994 completed Not Available [facility] 03/06/2023 03:50:49 Hib, unspecified formulation 1993 completed Not Available [facility] 03/06/2023 03:50:49 Hib, unspecified formulation 03/07/1994 completed Not Available [facility] 03/06/2023 03:50:49 COVID-19, mRNA, LNP-S, PF, 100 mcg/0.5mL dose or 50 mcg/0.25mL dose 08/21/2020 completed Not Available [facility] 03/06/20 03:50:49 COVID-19, mRNA, LNP-S, PF, 100 mcg/0.5mL dose or 50 mcg/0.25mL dose 09/18/2020 completed Not Available [facility] 03/06/20 03:50:49 COVID-19, mRNA, LNP-S, PF, 100 mcg/0.5mL dose or 50 mcg/0.25mL dose 04/10/2021 completed Not Available [facility] 03/06/20 03:50:50 varicella 11/24/2006 completed Not Available [facility] 03:50:50 varicella 01/21/1999 completed Not Available [facility] 03:50:50 SARS-COV-2 (COVID-19) vaccine, UNSPECIFIED 09/25/2021 completed Not Available [facility] 03/06/2023 03:50:50 Hep B, unspecified formulation 1993 completed Not Available [facility] 03/06/2023 03:50:51 Hep B, unspecified formulation 1993 completed Not Available [facility] 03/06/2023 03:50:51 Hep B, unspecified formulation 03/07/1994 completed Not Available [facility] 03/06/2023 03:50:52 Hep A, unspecified formulation 06/22/2000 completed Not Available [facility] 03/06/2023 03:50:52 Hep A, unspecified formulation 11/07/1997 completed Not Available [facility] 03/06/2023 03:50:52 influenza, unspecified formulation 01/18/2016 completed Not Available [facility] 03/06/2023 03:50:52 polio, unspecified formulation 05/15/1994 completed Not Available [facility] 03/06/2023 03:50:52 polio, unspecified formulation 1993 completed Not Available [facility] 03/06/2023 03:50:52 polio, unspecified formulation 09/15/1994 completed Not Available [facility] 03/06/2023 03:50:53 polio, unspecified formulation 03/07/1994 completed Not Available [facility] 03/06/2023 03:50:53 Influenza, split virus, quadrivalent, PF 01/23/2023 completed Not Available [facility] 05/08/2023 05:31:40 Past Encounters Encounter ID Performer Location Encounter Start Date Encounter Closed Date Diagnosis/Indication Diagnosis SNOMED-CT Code [id number] LORNA MARTINEZ RIB KNITTER [address] [address] 11/10/2023 09:56:28 11/10/2023 12:18:07 Tetraplegia 27760490 Osteomyelitis 17930309 High enzym e level in serum 648303951 Vitamin D deficiency 347 11852 Impacted cerumen 6325244 6 Health Concerns Section Related Observation LastModified by Organization Detai ls LastModified Time None Recorded Concern Status LastModified by Organization Details LastModified Time None Recorded Payers Encounter Date Sequence Insurance Name Policy Number Policy Green Covered Member ID Green Member ID Guarantor Name 11/10/2023 1 [facility] (MEDICAID) Tana Cavazos [id number] Tana Cavazos Notes Date Note Type Note [...] -- Has been working with surgeon at [facility] and ID at [facility]. -- Has elevated inflammatory markers that are gradually rising, specifically CRP and ESR -- Normal CK -- LFTs are elevated; initially alk phos was primarily elevated, but over the last few months her AST and ALT have been increasing. She had abdominal US done at [facility] 03/28/23 and this was normal. ID felt [...] has full guardianship of Kalyan. LORNA MARTINEZ, RIB KNITTER [address], [place], [address], [facility]. 11/10/2023 12:42:59 OBGyn Episode No OBEpisode recorded.
--- OUTSIDE RECORDS SUMMARY | 2023-11-23 16:33 | XMS_ITS | Data Portability ---
Author Organization [place] [facility] Address [address] [facility] [place] [address] Assessment Encounter Date Assessment Date Assessment LastModified by Organization Details LastModified Time 04/24/2023 04/24/2023 The total time devoted to today's encounter, including both the dtpp-mb-gucv time with the patient and/or family/caregiv er and ydv-sypa-gc-fa ce time I personally spent is 48 minutes. Not available 04/24/2023 09:38:15 11/10/2023 11/10/2023 The total time devoted to today's encounter, including both the cjnu-ve-ixqz time with the patient and/or family/caregiv er and ryk-uadv-em-fa ce time I personally spent is 35 minutes. Hospital admission: 7.3.204 Hospital discharge 7.9.24. 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 Call or RTO sooner if needs arise. Not available 11/10/2023 10:35:50 Plan of Treatment Reminders Order Date Submit Date Provider Last Modified By Organization Details Last Modified Time Details Appointments Follow Up 2023 10:30A Julia MARTINEZ Not available Not available Not available Lab hepatitis panel (A+B+C), acute, serum 2022 023 [facility] (Registration ), [address] [place] [address] [place], [address], 04/25/2023 11:53:33 CMP, serum or plasma 2022 023 [facility] (Registration ), [address] [place] [address] , [place], [address], 04/24/2023 14:57:58 CBC w/ auto diff 2022 023 [facility] (Registration ), [address] [place] [address] [place], [address], 04/24/2023 14:43:55 C-reactiv e protein, quantitat brissa, serum or plasma [address] [facility] (Registration ), [address] [place] [address] [place], [address], 05/01/2023 11:12:20 ESR (erythroc yte sedimenta tion rate), blood [address] [facility] (Registration ), [address] [place] [address] [place], [address], 05/01/2023 11:12:20 Referral orthopedi c surgeon referral - 2nd time sending for spasms to the right wrist/ thumb. 2023 024 [facility], [address], [place], [address], 08/24/2023 10:27:47 Procedures None recorded. Surgeries None recorded. Imaging None recorded. Medication Orders Ensure Active High Protein oral liquid 2022 023 [facility]-, [address] [place], [address], 04/24/2023 09:17:52 Debrox 6.5 % ear drops 2023 024 [facility]-, [address] [place], [address], 11/10/2023 10:38:18 cholecalc iferol (vitamin D3) 125 mcg (5,000 unit) tablet 2023 024 [facility]-, [address] [place], [address], 11/10/2023 11:06:20 baclofen 15 mg tablet 2023 024 [facility]-, [address] [place], [address], 11/10/2023 10:38:17 Patient TargetsNo targets recorded. Patient Instructions Encounter Date Encounter Id Patient Instructions Last Modified By Organization Details Last Modified Time 04/24/2023 [id number] - Call Dr Augustin at [facility] - Call infectious disease at [facility] [...] 10_3/ uL 4.4-10 .8 normal Not Available [address] [place], [address] 04/03/2023 11:18:43 04/03/20 23 04/03/2023 COMPL ETE BLOOD COUNT W/DIF F RBC 3.44 10_6/ uL 3.93-5 .22 low Not Available [address] [place], [address] 04/03/2023 11:18:43 04/03/20 23 04/03/2023 COMPL ETE BLOOD COUNT W/DIF F HGB 9.6 g/dL 11.2-1 5.7 low Not Available [address] [place], [address] 04/03/2023 11:18:43 04/03/20 23 04/03/2023 COMPL ETE BLOOD COUNT W/DIF F HCT 29.6 % 36.0-4 6.0 low Not Available [address] [place], [address] 04/03/2023 11:18:43 04/03/20 23 04/03/2023 COMPL ETE BLOOD COUNT W/DIF F MCV 86 fL 80-95 normal Not Available [address] [place], [address] 04/03/2023 11:18:43 04/03/20 23 04/03/2023 COMPL ETE BLOOD COUNT W/DIF F MCH 27.9 pg 27.0-3 3.0 normal Not Available [address] [place], [address] 04/03/2023 11:18:43 04/03/20 23 04/03/2023 COMPL ETE BLOOD COUNT W/DIF F MCHC 32.4 % 32.0-3 6.0 normal Not Available [address] [place], [address] 04/03/2023 11:18:43 04/03/20 23 04/03/2023 COMPL ETE BLOOD COUNT W/DIF F RDW 14.7 % 11.7-1 4.6 high Not Available [address] [place], [address] 04/03/2023 11:18:43 04/03/20 23 04/03/2023 COMPL ETE BLOOD COUNT W/DIF F platelet count 524 10_3/ uL 130-40 0 high Not Available [address] [place], [address] 04/03/2023 11:18:43 04/03/20 23 04/03/2023 COMPL ETE BLOOD COUNT W/DIF F MPV 9.7 fL 8.0-11 .0 normal Not Available [address] [place], [address] 04/03/2023 11:18:43 04/03/20 23 04/03/2023 COMPL ETE BLOOD COUNT W/DIF F neutrophils % 71.9 Not Available [address] [place], [address] 04/03/2023 11:18:43 04/03/20 23 04/03/2023 COMPL ETE BLOOD COUNT W/DIF F lymphocytes % 20.8 Not Available [address] [place], [address] 04/03/2023 11:18:43 04/03/20 23 04/03/2023 COMPL ETE BLOOD COUNT W/DIF F monocytes % 5.0 Not Available [address] [place], [address] 04/03/2023 11:18:43 04/03/20 23 04/03/2023 COMPL ETE BLOOD COUNT W/DIF F eosinophils % 1.5 Not Available [address] [place], [address] 04/03/2023 11:18:43 04/03/20 23 04/03/2023 COMPL ETE BLOOD COUNT W/DIF F basophils % 0.5 Not Available [address] [place], [address] 04/03/2023 11:18:43 04/03/20 23 04/03/2023 COMPL ETE BLOOD COUNT W/DIF F immature grans % 0.3 Not Available [address] [place], [address] 04/03/2023 11:18:43 04/03/20 23 04/03/2023 COMPL ETE BLOOD COUNT W/DIF F nucleated RBC 0.0 % 0.0-0. 3 normal Not Available [address] [place], [address] 04/03/2023 11:18:43 04/03/20 23 04/03/2023 COMPL ETE BLOOD COUNT W/DIF F absolute neutrophil count 4.31 10_3/ uL 1.2-6. 7 normal Not Available [address] [place], [address] 04/03/2023 11:18:43 04/03/20 23 04/03/2023 COMPL ETE BLOOD COUNT W/DIF F absolute lymphocyte count 1.25 10_3/ uL 1.2-3. 4 normal Not Available [address] [place], [address] 04/03/2023 11:18:43 04/03/20 23 04/03/2023 COMPL ETE BLOOD COUNT W/DIF F absolute monocyte count 0.30 10_3/ uL 0.1-0. 8 normal Not Available [address] [place], [address] 04/03/2023 11:18:43 04/03/20 23 04/03/2023 COMPL ETE BLOOD COUNT W/DIF F absolute eosinophil count 0.09 10_3/ uL 0.0-0. 7 normal Not Available [address] [place], [address] 04/03/2023 11:18:43 04/03/20 23 04/03/2023 COMPL ETE BLOOD COUNT W/DIF F absolute basophil count 0.03 10_3/ uL 0.0-0. 2 normal Not Available [address] [place], [address] 04/03/2023 11:18:43 04/03/20 23 04/03/2023 LIVER PANEL total protein 7.8 g/dL 6.4-8. 2 normal Not Available [address] [place], [address] 04/03/2023 11:30:47 04/03/2004/03/2023 LIVER PANEL albumin 3.3 g/dL 3.4-5. 0 low Not Available [address] [place], [address] 04/03/2023 11:30:47 04/03/20 23 04/03/2023 LIVER PANEL bilirubin, total 0.3 mg/dL 0.2-1. 0 normal Not Available [address] [place], [address] 04/03/2023 11:30:47 04/03/2004/03/2023 LIVER PANEL alk phos 365 U/L 46-116 high Not Available [address] [place], [address] 04/03/2023 11:30:47 04/03/2004/03/2023 LIVER PANEL AST 48 U/L 15-37 high Not Available [address] [place], [address] 04/03/2023 11:30:47 04/03/2004/03/2023 LIVER PANEL ALT 89 U/L 14-59 high Not Available [address] [place], [address] 04/03/2023 11:30:47 04/03/2004/03/2023 LIVER PANEL bilirubin, conjugated 0.1 mg/dL 0.0-0. 2 normal Not Available [address] [place], [address] 04/03/2023 11:30:47 04/03/2004/03/2023 COMPR EHENS BRISSA METAB OLIC PANEL calcium 9.2 mg/dL 8.5-10 .1 normal Not Available [address] [place], [address] 04/03/2023 11:30:47 04/03/2004/03/2023 COMPR EHENS BRISSA METAB OLIC PANEL glucose 144 mg/dL 74-106 high Not Available [address] [place], [address] 04/03/2023 11:30:47 04/03/2004/03/2023 COMPR EHENS BRISSA METAB OLIC PANEL BUN 13 mg/dL 7-18 normal Not Available [address] [place], [address] 04/03/2023 11:30:47 04/03/2004/03/2023 COMPR EHENS BRISSA METAB OLIC PANEL creatinine 0.4 mg/dL 0.55-1 .02 low Not Available [address] [place], [address] 04/03/2023 11:30:47 04/03/20 23 04/03/2023 COMPR EHENS BRISSA METAB OLIC PANEL estimated GFR 137.31 mL/min /1.73m 2 Not Available [address] [place], [address] 04/03/2023 11:30:47 04/03/20 23 04/03/2023 COMPR EHENS BRISSA METAB OLIC PANEL sodium 139 mmol/ L 136-14 5 normal Not Available [address] [place], [address] 04/03/2023 11:30:47 04/03/20 23 04/03/2023 COMPR EHENS BRISSA METAB OLIC PANEL potassium 3.8 mmol/ L 3.5-5. 1 normal Not Available [address] [place], [address] 04/03/2023 11:30:47 04/03/20 23 04/03/2023 COMPR EHENS BRISSA METAB OLIC PANEL chloride 102 mmol/ L 98-107 normal Not Available [address] [place], [address] 04/03/2023 11:30:47 04/03/20 23 04/03/2023 COMPR EHENS BRISSA METAB OLIC PANEL CO2 24.5 mmol/ L 21.0-3 2.0 normal Not Available [address] [place], [address] 04/03/2023 11:30:47 04/03/20 23 04/03/2023 COMPR EHENS BRISSA METAB OLIC PANEL anion gap 12.5 mmol/ L 3-11 high Not Available [address] [place], [address] 04/03/2023 11:30:47 04/03/20 23 04/03/2023 CREAT INE KINAS E creatine kinase 45 U/L 26-192 normal Not Available [address] [place], [address] 04/03/2023 11:30:48 04/03/20 23 04/03/2023 C-MARIELOS CTIVE PROTE IN C-reactive protein 6.28 mg/dL 0.0-0. 3 high Not Available [address] [place], [address] 04/03/2023 11:30:48 04/03/20 23 04/03/2023 ESR ESR 55 mm/HR 0-20 high Not Available [address] [place], [address] 04/03/2023 11:37:48 04/10/20 23 04/10/2023 COMPR EHENS BRISSA METAB OLIC PANEL calcium 9.3 mg/dL 8.5-10 .1 normal Not Available [address] [place], [address] 04/10/2023 12:25:49 04/10/20 23 04/10/2023 COMPR EHENS BRISSA METAB OLIC PANEL glucose 90 mg/dL 74-106 normal Not Available [address] [place], [address] 04/10/2023 12:25:49 04/10/20 23 04/10/2023 COMPR EHENS BRISSA METAB OLIC PANEL BUN 7 mg/dL 7-18 normal Not Available [address] [place], [address] 04/10/2023 12:25:49 04/10/20 23 04/10/2023 COMPR EHENS BRISSA METAB OLIC PANEL creatinine 0.3 mg/dL 0.55-1 .02 low Not Available [address] [place], [address] 04/10/2023 12:25:49 04/10/20 23 04/10/2023 COMPR EHENS BRISSA METAB OLIC PANEL estimated GFR 147.17 mL/min /1.73m 2 Not Available [address] [place], [address] 04/10/2023 12:25:49 04/10/20 23 04/10/2023 COMPR EHENS BRISSA METAB OLIC PANEL total protein 7.5 g/dL 6.4-8. 2 normal Not Available [address] [place], [address] 04/10/2023 12:25:49 04/10/20 23 04/10/2023 COMPR EHENS BRISSA METAB OLIC PANEL albumin 3.0 g/dL 3.4-5. 0 low Not Available [address] [place], [address] 04/10/2023 12:25:49 04/10/20 23 04/10/2023 COMPR EHENS BRISSA METAB OLIC PANEL bilirubin, total 0.2 mg/dL 0.2-1. 0 normal Not Available [address] [place], [address] 04/10/2023 12:25:49 04/10/20 23 04/10/2023 COMPR EHENS BRISSA METAB OLIC PANEL alk phos 414 U/L 46-116 high Not Available [address] [place], [address] 04/10/2023 12:25:49 04/10/20 23 04/10/2023 COMPR EHENS BRISSA METAB OLIC PANEL sodium 138 mmol/ L 136-14 5 normal Not Available [address] [place], [address] 04/10/2023 12:25:49 04/10/20 23 04/10/2023 COMPR EHENS BRISSA METAB OLIC PANEL potassium 4.3 mmol/ L 3.5-5. 1 normal Not Available [address] [place], [address] 04/10/2023 12:25:49 04/10/20 23 04/10/2023 COMPR EHENS BRISSA METAB OLIC PANEL chloride 102 mmol/ L 98-107 normal Not Available [address] [place], [address] 04/10/2023 12:25:49 04/10/20 23 04/10/2023 COMPR EHENS BRISSA METAB OLIC PANEL CO2 24.7 mmol/ L 21.0-3 2.0 normal Not Available [address] [place], [address] 04/10/2023 12:25:49 04/10/20 23 04/10/2023 COMPR EHENS BRISSA METAB OLIC PANEL anion gap 11.3 mmol/ L 3-11 high Not Available [address] [place], [address] 04/10/2023 12:25:49 04/10/20 23 04/10/2023 COMPR EHENS BRISSA METAB OLIC PANEL AST 77 U/L 15-37 high Not Available [address] [place], [address] 04/10/2023 12:25:49 04/10/20 23 04/10/2023 COMPR EHENS BRISSA METAB OLIC PANEL ALT 137 U/L 14-59 high Not Available [address] [place], [address] 04/10/2023 12:25:49 04/10/20 23 04/10/2023 C-MARIELOS CTIVE PROTE IN C-reactive protein 9.51 mg/dL 0.0-0. 3 high Not Available [address] [place], [address] 04/10/2023 12:25:50 04/10/20 23 04/10/2023 C-MARIELOS CTIVE PROTE IN C-reactive protein 9.51 mg/dL 0.0-0. 3 high Not Available [address] [place], [address] 04/12/2023 01:17:45 04/24/20 23 04/24/2023 ESR ESR 53 mm/HR 0-20 high Not Available [address] [place], [address] 04/24/2023 14:34:51 04/24/20 23 04/24/2023 COMPL ETE BLOOD COUNT W/DIF F WBC 4.01 10_3/ uL 4.4-10 .8 low Not Available [address] [place], [address] 04/24/2023 14:43:55 04/24/20 23 04/24/2023 COMPL ETE BLOOD COUNT W/DIF F RBC 3.76 10_6/ uL 3.93-5 .22 low Not Available [address] [place], [address] 04/24/2023 14:43:55 04/24/20 23 04/24/2023 COMPL ETE BLOOD COUNT W/DIF F HGB 9.6 g/dL 11.2-1 5.7 low Not Available [address] [place], [address] 04/24/2023 14:43:55 04/24/20 23 04/24/2023 COMPL ETE BLOOD COUNT W/DIF F HCT 31.3 % 36.0-4 6.0 low Not Available [address] [place], [address] 04/24/2023 14:43:55 04/24/20 23 04/24/2023 COMPL ETE BLOOD COUNT W/DIF F MCV 83 fL 80-95 normal Not Available [address] [place], [address] 04/24/2023 14:43:55 04/24/20 23 04/24/2023 COMPL ETE BLOOD COUNT W/DIF F MCH 25.5 pg 27.0-3 3.0 low Not Available [address] [place], [address] 04/24/2023 14:43:55 04/24/20 23 04/24/2023 COMPL ETE BLOOD COUNT W/DIF F MCHC 30.7 % 32.0-3 6.0 low Not Available [address] [place], [address] 04/24/2023 14:43:55 04/24/20 23 04/24/2023 COMPL ETE BLOOD COUNT W/DIF F RDW 16.9 % 11.7-1 4.6 high Not Available [address] [place], [address] 04/24/2023 14:43:55 04/24/20 23 04/24/2023 COMPL ETE BLOOD COUNT W/DIF F platelet count 423 10_3/ uL 130-40 0 high Not Available [address] [place], [address] 04/24/2023 14:43:55 04/24/20 23 04/24/2023 COMPL ETE BLOOD COUNT W/DIF F MPV 9.9 fL 8.0-11 .0 normal Not Available [address] [place], [address] 04/24/2023 14:43:55 04/24/20 23 04/24/2023 COMPL ETE BLOOD COUNT W/DIF F neutrophils % 66.4 Not Available [address] [place], [address] 04/24/2023 14:43:55 04/24/20 23 04/24/2023 COMPL ETE BLOOD COUNT W/DIF F lymphocytes % 24.9 Not Available [address] [place], [address] 04/24/2023 14:43:55 04/24/20 23 04/24/2023 COMPL ETE BLOOD COUNT W/DIF F monocytes % 6.5 Not Available [address] [place], [address] 04/24/2023 14:43:55 04/24/20 23 04/24/2023 COMPL ETE BLOOD COUNT W/DIF F eosinophils % 1.5 Not Available [address] [place], [address] 04/24/2023 14:43:55 04/24/20 23 04/24/2023 COMPL ETE BLOOD COUNT W/DIF F basophils % 0.7 Not Available [address] [place], [address] 04/24/2023 14:43:55 04/24/20 23 04/24/2023 COMPL ETE BLOOD COUNT W/DIF F immature grans % 0.0 Not Available [address] [place], [address] 04/24/2023 14:43:55 04/24/20 23 04/24/2023 COMPL ETE BLOOD COUNT W/DIF F nucleated RBC 0.0 % 0.0-0. 3 normal Not Available [address] [place], [address] 04/24/2023 14:43:55 04/24/20 23 04/24/2023 COMPL ETE BLOOD COUNT W/DIF F absolute neutrophil count 2.66 10_3/ uL 1.2-6. 7 normal Not Available [address] [place], [address] 04/24/2023 14:43:55 04/24/20 23 04/24/2023 COMPL ETE BLOOD COUNT W/DIF F absolute lymphocyte count 1.00 10_3/ uL 1.2-3. 4 low Not Available [address] [place], [address] 04/24/2023 14:43:55 04/24/20 23 04/24/2023 COMPL ETE BLOOD COUNT W/DIF F absolute monocyte count 0.26 10_3/ uL 0.1-0. 8 normal Not Available [address] [place], [address] 04/24/2023 14:43:55 04/24/20 23 04/24/2023 COMPL ETE BLOOD COUNT W/DIF F absolute eosinophil count 0.06 10_3/ uL 0.0-0. 7 normal Not Available [address] [place], [address] 04/24/2023 14:43:55 04/24/20 23 04/24/2023 COMPL ETE BLOOD COUNT W/DIF F absolute basophil count 0.03 10_3/ uL 0.0-0. 2 normal Not Available [address] [place], [address] 04/24/2023 14:43:55 04/24/20 23 04/24/2023 COMPR EHENS BRISSA METAB OLIC PANEL calcium 9.5 mg/dL 8.5-10 .1 normal Not Available [address] [place], [address] 04/24/2023 14:57:58 04/24/20 23 04/24/2023 COMPR EHENS BRISSA METAB OLIC PANEL glucose 97 mg/dL 74-106 normal Not Available [place] [address] [place], [address] 04/24/2023 14:57:58 04/24/20 23 04/24/2023 COMPR EHENS BRISSA METAB OLIC PANEL BUN 11 mg/dL 7-18 normal Not Available [place] [facility] [address] [place], [address] 04/24/2023 14:57:58 04/24/20 23 04/24/2023 COMPR EHENS BRISSA METAB OLIC PANEL creatinine 0.4 mg/dL 0.55-1 .02 low Not Available [address] [place], [address] 04/24/2023 14:57:58 04/24/20 23 04/24/2023 COMPR EHENS BRISSA METAB OLIC PANEL estimated GFR 137.31 mL/min /1.73m 2 Not Available [address] [place], [address] 04/24/2023 14:57:58 04/24/20 23 04/24/2023 COMPR EHENS BRISSA METAB OLIC PANEL total protein 8.7 g/dL 6.4-8. 2 high Not Available [address] [place], [address] 04/24/2023 14:57:58 04/24/20 23 04/24/2023 COMPR EHENS BRISSA METAB OLIC PANEL albumin 3.2 g/dL 3.4-5. 0 low Not Available [address] [place], [address] 04/24/2023 14:57:58 04/24/20 23 04/24/2023 COMPR EHENS BRISSA METAB OLIC PANEL bilirubin, total 0.1 mg/dL 0.2-1. 0 low Not Available [address] [place], [address] 04/24/2023 14:57:58 04/24/20 23 04/24/2023 COMPR EHENS BRISSA METAB OLIC PANEL alk phos 256 U/L 46-116 high Not Available [address] [place], [address] 04/24/2023 14:57:58 04/24/20 23 04/24/2023 COMPR EHENS BRISSA METAB OLIC PANEL sodium 140 mmol/ L 136-14 5 normal Not Available [address] [place], [address] 04/24/2023 14:57:58 04/24/20 23 04/24/2023 COMPR EHENS BRISSA METAB OLIC PANEL potassium 3.8 mmol/ L 3.5-5. 1 normal Not Available [address] [place], [address] 04/24/2023 14:57:58 04/24/20 23 04/24/2023 COMPR EHENS BRISSA METAB OLIC PANEL chloride 102 mmol/ L 98-107 normal Not Available [address] [place], [address] 04/24/2023 14:57:58 04/24/20 23 04/24/2023 COMPR EHENS BRISSA METAB OLIC PANEL CO2 27.8 mmol/ L 21.0-3 2.0 normal Not Available [address] [place], [address] 04/24/2023 14:57:58 04/24/2004/24/2023 COMPR EHENS BRISSA METAB OLIC PANEL anion gap 10.2 mmol/ L 3-11 normal Not Available [address] [place], [address] 04/24/2023 14:57:58 04/24/2004/24/2023 COMPR EHENS BRISSA METAB OLIC PANEL AST 30 U/L 15-37 normal Not Available [address] [place], [address] 04/24/2023 14:57:58 04/24/2004/24/2023 COMPR EHENS BRISSA METAB OLIC PANEL ALT 34 U/L 14-59 normal Not Available [address] [place], [address] 04/24/2023 14:57:58 04/24/2004/24/2023 C-MARIELOS CTIVE PROTE IN C-reactive protein 5.46 mg/dL 0.0-0. 3 high Not Available [address] [place], [address] 04/24/2023 14:57:59 04/24/2004/24/2023 ACUTE HEPAT ITIS PROFI LE hepatitis B surface Ag Negati ve negati ve Not Available [address] [place], [address] 04/25/2023 11:53:33 04/24/20 23 04/24/2023 ACUTE HEPAT ITIS PROFI LE hepatitis C Ab W rflx HCV PCR Negati ve negati ve Not Available [address] [place], [address] 04/25/2023 11:53:33 04/24/20 23 04/24/2023 ACUTE HEPAT ITIS PROFI LE hepatitis A antibody IgM Negati ve negati ve Not Available [address] [place], [address] 04/25/2023 11:53:33 04/24/20 23 04/24/2023 ACUTE HEPAT ITIS PROFI LE hepatitis B core antibody Negati ve negati ve Not Available [address] [place], [address] 04/25/2023 11:53:33 05/01/19 24 05/01/2023 fecal occul t blood , stool Occult Blood negati ve Not Available [address], [address], 05/01/2023 16:26:46 05/14/19 24 05/14/2023 COMPL ETE BLOOD COUNT W/DIF F WBC 3.61 10_3/ uL 4.4-10 .8 low Not Available [address] [place], [address] 05/14/2023 12:56:33 05/14/19 24 05/14/2023 COMPL ETE BLOOD COUNT W/DIF F RBC 4.26 10_6/ uL 3.93-5 .22 normal Not Available [address] [place], [address] 05/14/2023 12:56:33 05/14/19 24 05/14/2023 COMPL ETE BLOOD COUNT W/DIF F HGB 10.4 g/dL 11.2-1 5.7 low Not Available [address] [place], [address] 05/14/2023 12:56:33 05/14/19 24 05/14/2023 COMPL ETE BLOOD COUNT W/DIF F HCT 34.3 % 36.0-4 6.0 low Not Available [address] [place], [address] 05/14/2023 12:56:33 05/14/19 24 05/14/2023 COMPL ETE BLOOD COUNT W/DIF F MCV 81 fL 80-95 normal Not Available [address] [place], [address] 05/14/2023 12:56:33 05/14/19 24 05/14/2023 COMPL ETE BLOOD COUNT W/DIF F MCH 24.4 pg 27.0-3 3.0 low Not Available [address] [place], [address] 05/14/2023 12:56:33 05/14/19 24 05/14/2023 COMPL ETE BLOOD COUNT W/DIF F MCHC 30.3 % 32.0-3 6.0 low Not Available [address] [place], [address] 05/14/2023 12:56:33 05/14/19 24 05/14/2023 COMPL ETE BLOOD COUNT W/DIF F RDW 17.8 % 11.7-1 4.6 high Not Available [address] [place], [address] 05/14/2023 12:56:33 05/14/19 24 05/14/2023 COMPL ETE BLOOD COUNT W/DIF F platelet count 351 10_3/ uL 130-40 0 normal Not Available [address] [place], [address] 05/14/2023 12:56:33 05/14/19 24 05/14/2023 COMPL ETE BLOOD COUNT W/DIF F MPV 9.6 fL 8.0-11 .0 normal Not Available [address] [place], [address] 05/14/2023 12:56:33 05/14/19 24 05/14/2023 COMPL ETE BLOOD COUNT W/DIF F neutrophils % 55.3 Not Available [address] [place], [address] 05/14/2023 12:56:33 05/14/19 24 05/14/2023 COMPL ETE BLOOD COUNT W/DIF F lymphocytes % 36.6 Not Available [address] [place], [address] 05/14/2023 12:56:33 05/14/19 24 05/14/2023 COMPL ETE BLOOD COUNT W/DIF F monocytes % 5.3 Not Available [address] [place], [address] 05/14/2023 12:56:33 05/14/19 24 05/14/2023 COMPL ETE BLOOD COUNT W/DIF F eosinophils % 1.9 Not Available [address] [place], [address] 05/14/2023 12:56:33 05/14/19 24 05/14/2023 COMPL ETE BLOOD COUNT W/DIF F basophils % 0.6 Not Available [address] [place], [address] 05/14/2023 12:56:33 05/14/19 24 05/14/2023 COMPL ETE BLOOD COUNT W/DIF F immature grans % 0.3 Not Available [address] [place], [address] 05/14/2023 12:56:33 05/14/19 24 05/14/2023 COMPL ETE BLOOD COUNT W/DIF F nucleated RBC 0.0 % 0.0-0. 3 normal Not Available [address] [place], [address] 05/14/2023 12:56:33 05/14/19 24 05/14/2023 COMPL ETE BLOOD COUNT W/DIF F absolute neutrophil count 2.00 10_3/ uL 1.2-6. 7 normal Not Available [address] [address] [place], [address] 05/14/2023 12:56:33 05/14/19 24 05/14/2023 COMPL ETE BLOOD COUNT W/DIF F absolute lymphocyte count 1.32 10_3/ uL 1.2-3. 4 normal Not Available [address] [place], [address] 05/14/2023 12:56:33 05/14/19 24 05/14/2023 COMPL ETE BLOOD COUNT W/DIF F absolute monocyte count 0.19 10_3/ uL 0.1-0. 8 normal Not Available [address] [place], [address] 05/14/2023 12:56:33 05/14/19 24 05/14/2023 COMPL ETE BLOOD COUNT W/DIF F absolute eosinophil count 0.07 10_3/ uL 0.0-0. 7 normal Not Available [address] [place], [address] 05/14/2023 12:56:33 05/14/19 24 05/14/2023 COMPL ETE BLOOD COUNT W/DIF F absolute basophil count 0.02 10_3/ uL 0.0-0. 2 normal Not Available [address] [place], [address] 05/14/2023 12:56:33 05/14/19 24 05/14/2023 ESR ESR 67 mm/HR 0-20 high Not Available [address] [place], [address] 05/14/2023 12:56:35 05/14/19 24 05/14/2023 COMPR EHENS BRISSA METAB OLIC PANEL calcium 9.4 mg/dL 8.5-10 .1 normal Not Available [address] [place], [address] 05/14/2023 13:06:39 05/14/19 24 05/14/2023 COMPR EHENS BRISSA METAB OLIC PANEL glucose 90 mg/dL 74-106 normal Not Available [address] [place], [address] 05/14/2023 13:06:39 05/14/19 24 05/14/2023 COMPR EHENS BRISSA METAB OLIC PANEL BUN 13 mg/dL 7-18 normal Not Available [address] [place], [address] 05/14/2023 13:06:39 05/14/19 24 05/14/2023 COMPR EHENS BRISSA METAB OLIC PANEL creatinine 0.4 mg/dL 0.55-1 .02 low Not Available [address] [place], [address] 05/14/2023 13:06:39 05/14/19 24 05/14/2023 COMPR EHENS BRISSA METAB OLIC PANEL estimated GFR 137.31 mL/min /1.73m 2 Not Available [address] [place], [address] 05/14/2023 13:06:39 05/14/19 24 05/14/2023 COMPR EHENS BRISSA METAB OLIC PANEL total protein 7.8 g/dL 6.4-8. 2 normal Not Available [address] [place], [address] 05/14/2023 13:06:39 05/14/19 24 05/14/2023 COMPR EHENS BRISSA METAB OLIC PANEL albumin 3.3 g/dL 3.4-5. 0 low Not Available [address] [place], [address] 05/14/2023 13:06:39 05/14/19 24 05/14/2023 COMPR EHENS BRISSA METAB OLIC PANEL bilirubin, total 0.2 mg/dL 0.2-1. 0 normal Not Available [address] [place], [address] 05/14/2023 13:06:39 05/14/19 24 05/14/2023 COMPR EHENS BRISSA METAB OLIC PANEL alk phos 283 U/L 46-116 high Not Available [address] [place], [address] 05/14/2023 13:06:39 05/14/19 24 05/14/2023 COMPR EHENS BRISSA METAB OLIC PANEL sodium 140 mmol/ L 136-14 5 normal Not Available [address] [place], [address] 05/14/2023 13:06:39 05/14/19 24 05/14/2023 COMPR EHENS BRISSA METAB OLIC PANEL potassium 4.1 mmol/ L 3.5-5. 1 normal Not Available [address] [place], [address] 05/14/2023 13:06:39 05/14/19 24 05/14/2023 COMPR EHENS BRISSA METAB OLIC PANEL chloride 102 mmol/ L 98-107 normal Not Available [address] [place], [address] 05/14/2023 13:06:39 05/14/19 24 05/14/2023 COMPR EHENS BRISSA METAB OLIC PANEL CO2 27.4 mmol/ L 21.0-3 2.0 normal Not Available [address] [place], [address] 05/14/2023 13:06:39 05/14/19 24 05/14/2023 COMPR EHENS BRISSA METAB OLIC PANEL anion gap 10.6 mmol/ L 3-11 normal Not Available [address] [place], [address] 05/14/2023 13:06:39 05/14/19 24 05/14/2023 COMPR EHENS BRISSA METAB OLIC PANEL AST 35 U/L 15-37 normal Not Available [address] [place], [address] 05/14/2023 13:06:39 05/14/19 24 05/14/2023 COMPR EHENS BRISSA METAB OLIC PANEL ALT 64 U/L 14-59 high Not Available [address] [place], [address] 05/14/2023 13:06:39 05/14/19 24 05/14/2023 CREAT INE KINAS E creatine kinase 21 U/L 26-192 low Not Available [address] [place], [address] 05/14/2023 13:06:43 05/14/19 24 05/14/2023 C-MARIELOS CTIVE PROTE IN C-reactive protein 3.60 mg/dL 0.0-0. 3 high Not Available [address] [place], [address] 05/14/2023 13:06:43 06/17/19 24 06/17/2023 COMPL ETE BLOOD COUNT W/DIF F WBC 4.17 10_3/ uL 4.4-10 .8 low Not Available [address] [place], [address] 06/17/2023 13:58:18 06/17/19 24 06/17/2023 COMPL ETE BLOOD COUNT W/DIF F RBC 4.90 10_6/ uL 3.93-5 .22 normal Not Available [address] [place], [address] 06/17/2023 13:58:18 06/17/19 24 06/17/2023 COMPL ETE BLOOD COUNT W/DIF F HGB 12.1 g/dL 11.2-1 5.7 normal Not Available [address] [place], [address] 06/17/2023 13:58:18 06/17/19 24 06/17/2023 COMPL ETE BLOOD COUNT W/DIF F HCT 38.4 % 36.0-4 6.0 normal Not Available [address] [place], [address] 06/17/2023 13:58:18 06/17/19 24 06/17/2023 COMPL ETE BLOOD COUNT W/DIF F MCV 78 fL 80-95 low Not Available [address] [place], [address] 06/17/2023 13:58:18 06/17/19 24 06/17/2023 COMPL ETE BLOOD COUNT W/DIF F MCH 24.7 pg 27.0-3 3.0 low Not Available [address] [place], [address] 06/17/2023 13:58:18 06/17/19 24 06/17/2023 COMPL ETE BLOOD COUNT W/DIF F MCHC 31.5 % 32.0-3 6.0 low Not Available [address] [place], [address] 06/17/2023 13:58:18 06/17/19 24 06/17/2023 COMPL ETE BLOOD COUNT W/DIF F RDW 20.3 % 11.7-1 4.6 high Not Available [address] [place], [address] 06/17/2023 13:58:18 06/17/19 24 06/17/2023 COMPL ETE BLOOD COUNT W/DIF F platelet count 325 10_3/ uL 130-40 0 normal Not Available [address] [place], [address] 06/17/2023 13:58:18 06/17/19 24 06/17/2023 COMPL ETE BLOOD COUNT W/DIF F MPV 10.1 fL 8.0-11 .0 normal Not Available [address] [place], [address] 06/17/2023 13:58:18 06/17/19 24 06/17/2023 COMPL ETE BLOOD COUNT W/DIF F neutrophils % 58.2 Not Available [address] [place], [address] 06/17/2023 13:58:18 06/17/19 24 06/17/2023 COMPL ETE BLOOD COUNT W/DIF F lymphocytes % 32.1 Not Available [address] [place], [address] 06/17/2023 13:58:18 06/17/19 24 06/17/2023 COMPL ETE BLOOD COUNT W/DIF F monocytes % 7.4 Not Available [address] [place], [address] 06/17/2023 13:58:18 06/17/19 24 06/17/2023 COMPL ETE BLOOD COUNT W/DIF F eosinophils % 1.4 Not Available [address] [place], [address] 06/17/2023 13:58:18 06/17/19 24 06/17/2023 COMPL ETE BLOOD COUNT W/DIF F basophils % 0.7 Not Available [address] [place], [address] 06/17/2023 13:58:18 06/17/19 24 06/17/2023 COMPL ETE BLOOD COUNT W/DIF F immature grans % 0.2 Not Available [address] [place], [address] 06/17/2023 13:58:18 06/17/19 24 06/17/2023 COMPL ETE BLOOD COUNT W/DIF F nucleated RBC 0.0 % 0.0-0. 3 normal Not Available [address] [place], [address] 06/17/2023 13:58:18 06/17/19 24 06/17/2023 COMPL ETE BLOOD COUNT W/DIF F absolute neutrophil count 2.43 10_3/ uL 1.2-6. 7 normal Not Available [address] [place], [address] 06/17/2023 13:58:18 06/17/19 24 06/17/2023 COMPL ETE BLOOD COUNT W/DIF F absolute lymphocyte count 1.34 10_3/ uL 1.2-3. 4 normal Not Available [address] [place], [address] 06/17/2023 13:58:18 06/17/19 24 06/17/2023 COMPL ETE BLOOD COUNT W/DIF F absolute monocyte count 0.31 10_3/ uL 0.1-0. 8 normal Not Available [address] [place], [address] 06/17/2023 13:58:18 06/17/19 24 06/17/2023 COMPL ETE BLOOD COUNT W/DIF F absolute eosinophil count 0.06 10_3/ uL 0.0-0. 7 normal Not Available [address] [place], [address] 06/17/2023 13:58:18 06/17/19 24 06/17/2023 COMPL ETE BLOOD COUNT W/DIF F absolute basophil count 0.03 10_3/ uL 0.0-0. 2 normal Not Available [address] [place], [address] 06/17/2023 13:58:18 06/17/19 24 06/17/2023 COMPL ETE BLOOD COUNT W/DIF F diff comment RBC Morph Review ed Not Available [address] [place], [address] 06/17/2023 13:58:18 06/17/19 24 06/17/2023 COMPL ETE BLOOD COUNT W/DIF F RBC morphology See Below Not Available [address] [place], [address] 06/17/2023 13:58:18 06/17/19 24 06/17/2023 COMPL ETE BLOOD COUNT W/DIF F anisocytosis 1+ Not Available [address] [place], [address] 06/17/2023 13:58:18 06/17/19 24 06/17/2023 COMPL ETE BLOOD COUNT W/DIF F microcytosis 1+ Not Available [address] [place], [address] 06/17/2023 13:58:18 06/17/19 24 06/17/2023 COMPL ETE BLOOD COUNT W/DIF F poikilocytes 1+ Not Available [address] [place], [address] 06/17/2023 13:58:18 07/01/19 24 07/01/2023 COMPR EHENS BRISSA METAB OLIC PANEL calcium 9.5 mg/dL 8.5-10 .1 normal Not Available [address] [place], [address] 07/01/2023 16:12:34 07/01/19 24 07/01/2023 COMPR EHENS BRISSA METAB OLIC PANEL glucose 102 mg/dL 74-106 normal Not Available [address] [place], [address] 07/01/2023 16:12:34 07/01/19 24 07/01/2023 COMPR EHENS BRISSA METAB OLIC PANEL BUN 13 mg/dL 7-18 normal Not Available [address] [place], [address] 07/01/2023 16:12:34 07/01/19 24 07/01/2023 COMPR EHENS BRISSA METAB OLIC PANEL creatinine 0.4 mg/dL 0.55-1 .02 low Not Available [address] [place], [address] 07/01/2023 16:12:34 07/01/19 24 07/01/2023 COMPR EHENS BRISSA METAB OLIC PANEL estimated GFR 136.46 mL/min /1.73m 2 Not Available [address] [place], [address] 07/01/2023 16:12:34 07/01/19 24 07/01/2023 COMPR EHENS BRISSA METAB OLIC PANEL total protein 7.9 g/dL 6.4-8. 2 normal Not Available [address] [place], [address] 07/01/2023 16:12:34 07/01/19 24 07/01/2023 COMPR EHENS BRISSA METAB OLIC PANEL albumin 3.6 g/dL 3.4-5. 0 normal Not Available [address] [place], [address] 07/01/2023 16:12:34 07/01/19 24 07/01/2023 COMPR EHENS BRISSA METAB OLIC PANEL bilirubin, total 0.1 mg/dL 0.2-1. 0 low Not Available [address] [place], [address] 07/01/2023 16:12:34 07/01/19 24 07/01/2023 COMPR EHENS BRISSA METAB OLIC PANEL alk phos 233 U/L 46-116 high Not Available [address] [place], [address] 07/01/2023 16:12:34 07/01/19 24 07/01/2023 COMPR EHENS BRISSA METAB OLIC PANEL sodium 142 mmol/ L 136-14 5 normal Not Available [address] [place], [address] 07/01/2023 16:12:34 07/01/19 24 07/01/2023 COMPR EHENS BRISSA METAB OLIC PANEL potassium 4.0 mmol/ L 3.5-5. 1 normal Not Available [address] [place], [address] 07/01/2023 16:12:34 07/01/19 24 07/01/2023 COMPR EHENS BRISSA METAB OLIC PANEL chloride 104 mmol/ L 98-107 normal Not Available [address] [place], [address] 07/01/2023 16:12:34 07/01/19 24 07/01/2023 COMPR EHENS BRISSA METAB OLIC PANEL CO2 26.4 mmol/ L 21.0-3 2.0 normal Not Available [address] [place], [address] 07/01/2023 16:12:34 07/01/19 24 07/01/2023 COMPR EHENS BRISSA METAB OLIC PANEL anion gap 11.6 mmol/ L 3-11 high Not Available [address] [place], [address] 07/01/2023 16:12:34 07/01/19 24 07/01/2023 COMPR EHENS BRISSA METAB OLIC PANEL AST 27 U/L 15-37 normal Not Available [address] [place], [address] 07/01/2023 16:12:34 07/01/19 24 07/01/2023 COMPR EHENS BRISSA METAB OLIC PANEL ALT 70 U/L 14-59 high Not Available [address] [place], [address] 07/01/2023 16:12:34 07/01/19 24 07/01/2023 IRON/ IBCT iron 42 ug/dL 50-170 low Not Available [address] [place], [address] 07/01/2023 16:36:37 07/01/19 24 07/01/2023 IRON/ IBCT total iron binding capacity 403 ug/dL 250-45 0 normal Not Available [address] [place], [address] 07/01/2023 16:36:37 07/01/19 24 07/01/2023 IRON/ IBCT transferrin sat 10 % 15-50 low Not Available [address] [place], [address] 07/01/2023 16:36:37 07/01/19 24 07/02/2023 TISSU E TRANS GLUTA YASH E IGA tissue transglutami nase IgA <4.0 cu <20.0 Not Available [address] [place], [address] 07/02/2023 11:39:19 07/01/19 24 07/02/2023 IGG IgG 1631 mg/dL 610-16 16 abnormal Not Available [address] [place], [address] 07/02/2023 15:55:58 07/01/19 24 07/02/2023 IGA IgA 284 mg/dL 85-499 Not Available [address] [place], [address] 07/02/2023 15:55:58 07/29/19 24 07/29/2023 VITAM IN D 25 TOTAL vitamin D 25 total 39.4 NG/mL 30-100 normal Not Available [address] [place], [address] 07/29/2023 13:31:45 10/28/19 24 10/28/2023 COMPL ETE BLOOD COUNT W/DIF F WBC 7.24 10_3/ uL 4.4-10 .8 normal Not Available [address] [place], [address] 10/28/2023 13:08:06 10/28/19 24 10/28/2023 COMPL ETE BLOOD COUNT W/DIF F RBC 4.41 10_6/ uL 3.93-5 .22 normal Not Available [address] [place], [address] 10/28/2023 13:08:06 10/28/19 24 10/28/2023 COMPL ETE BLOOD COUNT W/DIF F HGB 12.5 g/dL 11.2-1 5.7 normal Not Available [address] [place], [address] 10/28/2023 13:08:06 10/28/19 24 10/28/2023 COMPL ETE BLOOD COUNT W/DIF F HCT 38.8 % 36.0-4 6.0 normal Not Available [address] [place], [address] 10/28/2023 13:08:06 10/28/19 24 10/28/2023 COMPL ETE BLOOD COUNT W/DIF F MCV 88 fL 80-95 normal Not Available [address] [place], [address] 10/28/2023 13:08:06 10/28/19 24 10/28/2023 COMPL ETE BLOOD COUNT W/DIF F MCH 28.3 pg 27.0-3 3.0 normal Not Available [address] [place], [address] 10/28/2023 13:08:06 10/28/19 24 10/28/2023 COMPL ETE BLOOD COUNT W/DIF F MCHC 32.2 % 32.0-3 6.0 normal Not Available [address] [place], [address] 10/28/2023 13:08:06 10/28/19 24 10/28/2023 COMPL ETE BLOOD COUNT W/DIF F RDW 14.3 % 11.7-1 4.6 normal Not Available [address] [place], [address] 10/28/2023 13:08:06 10/28/19 24 10/28/2023 COMPL ETE BLOOD COUNT W/DIF F platelet count 482 10_3/ uL 130-40 0 high Not Available [address] [place], [address] 10/28/2023 13:08:06 10/28/19 24 10/28/2023 COMPL ETE BLOOD COUNT W/DIF F MPV 9.8 fL 8.0-11 .0 normal Not Available [address] [place], [address] 10/28/2023 13:08:06 10/28/19 24 10/28/2023 COMPL ETE BLOOD COUNT W/DIF F neutrophils % 71.3 % Not Available [address] [place], [address] 10/28/2023 13:08:06 10/28/19 24 10/28/2023 COMPL ETE BLOOD COUNT W/DIF F lymphocytes % 21.0 % Not Available [address] [place], [address] 10/28/2023 13:08:06 10/28/19 24 10/28/2023 COMPL ETE BLOOD COUNT W/DIF F monocytes % 5.4 % Not Available [address] [place], [address] 10/28/2023 13:08:06 10/28/19 24 10/28/2023 COMPL ETE BLOOD COUNT W/DIF F eosinophils % 1.5 % Not Available [address] [place], [address] 10/28/2023 13:08:06 10/28/19 24 10/28/2023 COMPL ETE BLOOD COUNT W/DIF F basophils % 0.4 % Not Available [address] [place], [address] 10/28/2023 13:08:06 10/28/19 24 10/28/2023 COMPL ETE BLOOD COUNT W/DIF F immature grans % 0.4 % Not Available [address] [place], [address] 10/28/2023 13:08:06 10/28/19 24 10/28/2023 COMPL ETE BLOOD COUNT W/DIF F nucleated RBC 0.0 % 0.0-0. 3 normal Not Available [address] [place], [address] 10/28/2023 13:08:06 10/28/19 24 10/28/2023 COMPL ETE BLOOD COUNT W/DIF F absolute neutrophil count 5.16 10_3/ uL 1.2-6. 7 normal Not Available [address] [place], [address] 10/28/2023 13:08:06 10/28/19 24 10/28/2023 COMPL ETE BLOOD COUNT W/DIF F absolute lymphocyte count 1.52 10_3/ uL 1.2-3. 4 normal Not Available [address] [place], [address] 10/28/2023 13:08:06 10/28/19 24 10/28/2023 COMPL ETE BLOOD COUNT W/DIF F absolute monocyte count 0.39 10_3/ uL 0.1-0. 8 normal Not Available [address] [place], [address] 10/28/2023 13:08:06 10/28/19 24 10/28/2023 COMPL ETE BLOOD COUNT W/DIF F absolute eosinophil count 0.11 10_3/ uL 0.0-0. 7 normal Not Available [address] [place], [address] 10/28/2023 13:08:06 10/28/19 24 10/28/2023 COMPL ETE BLOOD COUNT W/DIF F absolute basophil count 0.03 10_3/ uL 0.0-0. 2 normal Not Available [address] [place], [address] 10/28/2023 13:08:06 10/28/19 24 10/28/2023 COMPR EHENS BRISSA METAB OLIC PANEL calcium 9.1 mg/dL 8.5-10 .1 normal Not Available [address] [place], [address] 10/28/2023 13:27:10 10/28/19 24 10/28/2023 COMPR EHENS BRISSA METAB OLIC PANEL glucose 98 mg/dL 74-106 normal Not Available [address] [place], [address] 10/28/2023 13:27:10 10/28/19 24 10/28/2023 COMPR EHENS BRISSA METAB OLIC PANEL BUN 8 mg/dL 7-18 normal Not Available [address] [place], [address] 10/28/2023 13:27:10 10/28/19 24 10/28/2023 COMPR EHENS BRISSA METAB OLIC PANEL creatinine 0.4 mg/dL 0.55-1 .02 low Not Available [address] [place], [address] 10/28/2023 13:27:10 10/28/19 24 10/28/2023 COMPR EHENS BRISSA METAB OLIC PANEL estimated GFR 136.46 mL/min /1.73m 2 Not Available [address] [place], [address] 10/28/2023 13:27:10 10/28/19 24 10/28/2023 COMPR EHENS BRISSA METAB OLIC PANEL total protein 7.9 g/dL 6.4-8. 2 normal Not Available [address] [place], [address] 10/28/2023 13:27:10 10/28/19 24 10/28/2023 COMPR EHENS BRISSA METAB OLIC PANEL albumin 3.0 g/dL 3.4-5. 0 low Not Available [address] [place], [address] 10/28/2023 13:27:10 10/28/19 24 10/28/2023 COMPR EHENS BRISSA METAB OLIC PANEL bilirubin, total 0.27 mg/dL 0.2-1. 0 normal Not Available [address] [place], [address] 10/28/2023 13:27:10 10/28/19 24 10/28/2023 COMPR EHENS BRISSA METAB OLIC PANEL alk phos 263 U/L 46-116 high Not Available [address] [place], [address] 10/28/2023 13:27:10 10/28/19 24 10/28/2023 COMPR EHENS BRISSA METAB OLIC PANEL sodium 141 mmol/ L 136-14 5 normal Not Available [address] [place], [address] 10/28/2023 13:27:10 10/28/19 24 10/28/2023 COMPR EHENS BRISSA METAB OLIC PANEL potassium 4.3 mmol/ L 3.5-5. 1 normal Not Available [address] [place], [address] 10/28/2023 13:27:10 10/28/19 24 10/28/2023 COMPR EHENS BRISSA METAB OLIC PANEL chloride 103 mmol/ L 98-107 normal Not Available [address] [place], [address] 10/28/2023 13:27:10 10/28/19 24 10/28/2023 COMPR EHENS BRISSA METAB OLIC PANEL CO2 29.2 mmol/ L 21.0-3 2.0 normal Not Available [address] [place], [address] 10/28/2023 13:27:10 10/28/19 24 10/28/2023 COMPR EHENS BRISSA METAB OLIC PANEL anion gap 8.8 mmol/ L 3-11 normal Not Available [address] [place], [address] 10/28/2023 13:27:10 10/28/19 24 10/28/2023 COMPR EHENS BRISSA METAB OLIC PANEL AST 22 U/L 15-37 normal Not Available [address] [place], [address] 10/28/2023 13:27:10 10/28/19 24 10/28/2023 COMPR EHENS BRISSA METAB OLIC PANEL ALT 54 U/L 14-59 normal Not Available [address] [place], [address] 10/28/2023 13:27:10 10/28/19 24 10/28/2023 C-MARIELOS CTIVE PROTE IN C-reactive protein 13.00 mg/dL <or=0. 5 high Not Available [facility] (Registration ) [address] [place] [address] [place], [address], 10/28/2023 13:27:11 11/09/19 24 11/09/2023 COMPL ETE BLOOD COUNT W/DIF F WBC 6.51 10_3/ uL 4.4-10 .8 normal Not Available [address] [place], [address] 11/09/2023 17:58:02 11/09/19 24 11/09/2023 COMPL ETE BLOOD COUNT W/DIF F RBC 4.22 10_6/ uL 3.93-5 .22 normal Not Available [address] [place], [address] 11/09/2023 17:58:02 11/09/19 24 11/09/2023 COMPL ETE BLOOD COUNT W/DIF F HGB 11.8 g/dL 11.2-1 5.7 normal Not Available [address] [place], [address] 11/09/2023 17:58:02 11/09/19 24 11/09/2023 COMPL ETE BLOOD COUNT W/DIF F HCT 36.7 % 36.0-4 6.0 normal Not Available [address] [place], [address] 11/09/2023 17:58:02 11/09/19 24 11/09/2023 COMPL ETE BLOOD COUNT W/DIF F MCV 87 fL 80-95 normal Not Available [address] [place], [address] 11/09/2023 17:58:02 11/09/19 24 11/09/2023 COMPL ETE BLOOD COUNT W/DIF F MCH 28.0 pg 27.0-3 3.0 normal Not Available [address] [place], [address] 11/09/2023 17:58:02 11/09/19 24 11/09/2023 COMPL ETE BLOOD COUNT W/DIF F MCHC 32.2 % 32.0-3 6.0 normal Not Available [address] [place], [address] 11/09/2023 17:58:02 11/09/19 24 11/09/2023 COMPL ETE BLOOD COUNT W/DIF F RDW 14.5 % 11.7-1 4.6 normal Not Available [address] [place], [address] 11/09/2023 17:58:02 11/09/19 24 11/09/2023 COMPL ETE BLOOD COUNT W/DIF F platelet count 430 10_3/ uL 130-40 0 high Not Available [address] [place], [address] 11/09/2023 17:58:02 11/09/19 24 11/09/2023 COMPL ETE BLOOD COUNT W/DIF F MPV 9.5 fL 8.0-11 .0 normal Not Available [address] [place], [address] 11/09/2023 17:58:02 11/09/19 24 11/09/2023 COMPL ETE BLOOD COUNT W/DIF F neutrophils % 60.3 % Not Available [address] [place], [address] 11/09/2023 17:58:02 11/09/19 24 11/09/2023 COMPL ETE BLOOD COUNT W/DIF F lymphocytes % 31.0 % Not Available [address] [place], [address] 11/09/2023 17:58:02 11/09/19 24 11/09/2023 COMPL ETE BLOOD COUNT W/DIF F monocytes % 5.7 % Not Available [address] [place], [address] 11/09/2023 17:58:02 11/09/19 24 11/09/2023 COMPL ETE BLOOD COUNT W/DIF F eosinophils % 2.2 % Not Available [address] [place], [address] 11/09/2023 17:58:02 11/09/19 24 11/09/2023 COMPL ETE BLOOD COUNT W/DIF F basophils % 0.6 % Not Available [address] [place], [address] 11/09/2023 17:58:02 11/09/19 24 11/09/2023 COMPL ETE BLOOD COUNT W/DIF F immature grans % 0.2 % Not Available [address] [place], [address] 11/09/2023 17:58:02 11/09/19 24 11/09/2023 COMPL ETE BLOOD COUNT W/DIF F nucleated RBC 0.0 % 0.0-0. 3 normal Not Available [address] [place], [address] 11/09/2023 17:58:02 11/09/19 24 11/09/2023 COMPL ETE BLOOD COUNT W/DIF F absolute neutrophil count 3.93 10_3/ uL 1.2-6. 7 normal Not Available [address] [place], [address] 11/09/2023 17:58:02 11/09/19 24 11/09/2023 COMPL ETE BLOOD COUNT W/DIF F absolute lymphocyte count 2.02 10_3/ uL 1.2-3. 4 normal Not Available [address] [place], [address] 11/09/2023 17:58:02 11/09/19 24 11/09/2023 COMPL ETE BLOOD COUNT W/DIF F absolute monocyte count 0.37 10_3/ uL 0.1-0. 8 normal Not Available [address] [place], [address] 11/09/2023 17:58:02 11/09/19 24 11/09/2023 COMPL ETE BLOOD COUNT W/DIF F absolute eosinophil count 0.14 10_3/ uL 0.0-0. 7 normal Not Available [address] [place], [address] 11/09/2023 17:58:02 11/09/19 24 11/09/2023 COMPL ETE BLOOD COUNT W/DIF F absolute basophil count 0.04 10_3/ uL 0.0-0. 2 normal Not Available [address] [place], [address] 11/09/2023 17:58:02 11/09/19 24 11/09/2023 COMPR EHENS BRISSA METAB OLIC PANEL calcium 9.1 mg/dL 8.5-10 .1 normal Not Available [address] [place], [address] 11/09/2023 18:20:06 11/09/19 24 11/09/2023 COMPR EHENS BRISSA METAB OLIC PANEL glucose 119 mg/dL 74-106 high Not Available [address] [place], [address] 11/09/2023 18:20:06 11/09/19 24 11/09/2023 COMPR EHENS BRISSA METAB OLIC PANEL BUN 30 mg/dL 7-18 high Not Available [address] [place], [address] 11/09/2023 18:20:06 11/09/19 24 11/09/2023 COMPR EHENS BRISSA METAB OLIC PANEL creatinine 1.2 mg/dL 0.55-1 .02 high Not Available [address] [place], [address] 11/09/2023 18:20:06 11/09/19 24 11/09/2023 COMPR EHENS BRISSA METAB OLIC PANEL estimated GFR 62.45 mL/min /1.73m 2 Not Available [address] [place], [address] 11/09/2023 18:20:06 11/09/19 24 11/09/2023 COMPR EHENS BRISSA METAB OLIC PANEL total protein 7.4 g/dL 6.4-8. 2 normal Not Available [address] [place], [address] 11/09/2023 18:20:06 11/09/19 24 11/09/2023 COMPR EHENS BRISSA METAB OLIC PANEL albumin 3.3 g/dL 3.4-5. 0 low Not Available [address] [place], [address] 11/09/2023 18:20:06 11/09/19 24 11/09/2023 COMPR EHENS BRISSA METAB OLIC PANEL bilirubin, total 0.36 mg/dL 0.2-1. 0 normal Not Available [address] [place], [address] 11/09/2023 18:20:06 11/09/19 24 11/09/2023 COMPR EHENS BRISSA METAB OLIC PANEL alk phos 129 U/L 46-116 high Not Available [address] [place], [address] 11/09/2023 18:20:06 11/09/19 24 11/09/2023 COMPR EHENS BRISSA METAB OLIC PANEL sodium 128 mmol/ L 136-14 5 low Not Available [address] [place], [address] 11/09/2023 18:20:06 11/09/19 24 11/09/2023 COMPR EHENS BRISSA METAB OLIC PANEL potassium 4.3 mmol/ L 3.5-5. 1 normal Not Available [address] [place], [address] 11/09/2023 18:20:06 11/09/19 24 11/09/2023 COMPR EHENS BRISSA METAB OLIC PANEL chloride 92 mmol/ L 98-107 low Not Available [address] [place], [address] 11/09/2023 18:20:06 11/09/19 24 11/09/2023 COMPR EHENS BRISSA METAB OLIC PANEL CO2 26.0 mmol/ L 21.0-3 2.0 normal Not Available [address] [place], [address] 11/09/2023 18:20:06 11/09/19 24 11/09/2023 COMPR EHENS BRISSA METAB OLIC PANEL anion gap 10.0 mmol/ L 3-11 normal Not Available [address] [place], [address] 11/09/2023 18:20:06 11/09/19 24 11/09/2023 COMPR EHENS BRISSA METAB OLIC PANEL AST 29 U/L 15-37 normal Not Available [address] [place], [address] 11/09/2023 18:20:06 11/09/19 24 11/09/2023 COMPR EHENS BRISSA METAB OLIC PANEL ALT 40 U/L 14-59 normal Not Available [address] [place], [address] 11/09/2023 18:20:06 11/09/19 24 11/09/2023 C-MARIELOS CTIVE PROTE IN C-reactive protein 3.21 mg/dL <or=0. 5 high Not Available [address] [place], [address] 11/09/2023 18:20:06 11/09/19 24 11/09/2023 C-MARIELOS CTIVE PROTE IN C-reactive protein 3.21 mg/dL <or=0. 5 high Not Available [address] [place], [address] 11/09/2023 19:28:31 11/09/19 24 11/09/2023 COMPR EHENS BRISSA METAB OLIC PANEL calcium 9.4 mg/dL 8.5-10 .1 normal Not Available [address] [place], [address] 11/09/2023 19:48:30 11/09/19 24 11/09/2023 COMPR EHENS BRISSA METAB OLIC PANEL glucose 114 mg/dL 74-106 high Not Available [address] [place], [address] 11/09/2023 19:48:30 11/09/19 24 11/09/2023 COMPR EHENS BRISSA METAB OLIC PANEL BUN 11 mg/dL 7-18 normal Not Available [address] [place], [address] 11/09/2023 19:48:30 11/09/19 24 11/09/2023 COMPR EHENS BRISSA METAB OLIC PANEL creatinine 0.4 mg/dL 0.55-1 .02 low Not Available [address] [place], [address] 11/09/2023 19:48:30 11/09/19 24 11/09/2023 COMPR EHENS BRISSA METAB OLIC PANEL estimated GFR 136.46 mL/min /1.73m 2 Not Available [address] [place], [address] 11/09/2023 19:48:30 11/09/19 24 11/09/2023 COMPR EHENS BRISSA METAB OLIC PANEL total protein 7.7 g/dL 6.4-8. 2 normal Not Available [address] [place], [address] 11/09/2023 19:48:30 11/09/19 24 11/09/2023 COMPR EHENS BRISSA METAB OLIC PANEL albumin 3.1 g/dL 3.4-5. 0 low Not Available [address] [place], [address] 11/09/2023 19:48:30 11/09/19 24 11/09/2023 COMPR EHENS BRISSA METAB OLIC PANEL bilirubin, total 0.12 mg/dL 0.2-1. 0 low Not Available [address] [place], [address] 11/09/2023 19:48:30 11/09/19 24 11/09/2023 COMPR EHENS BRISSA METAB OLIC PANEL alk phos 213 U/L 46-116 high Not Available [address] [place], [address] 11/09/2023 19:48:30 11/09/19 24 11/09/2023 COMPR EHENS BRISSA METAB OLIC PANEL sodium 140 mmol/ L 136-14 5 normal Not Available [address] [place], [address] 11/09/2023 19:48:30 11/09/19 24 11/09/2023 COMPR EHENS BRISSA METAB OLIC PANEL potassium 3.9 mmol/ L 3.5-5. 1 normal Not Available [address] [place], [address] 11/09/2023 19:48:30 11/09/19 24 11/09/2023 COMPR EHENS BRISSA METAB OLIC PANEL chloride 102 mmol/ L 98-107 normal Not Available [address] [place], [address] 11/09/2023 19:48:30 11/09/19 24 11/09/2023 COMPR EHENS BRISSA METAB OLIC PANEL CO2 26.8 mmol/ L 21.0-3 2.0 normal Not Available [address] [place], [address] 11/09/2023 19:48:30 11/09/19 24 11/09/2023 COMPR EHENS BRISSA METAB OLIC PANEL anion gap 11.2 mmol/ L 3-11 high Not Available [address] [place], [address] 11/09/2023 19:48:30 11/09/19 24 11/09/2023 COMPR EHENS BRISSA METAB OLIC PANEL AST 20 U/L 15-37 normal Not Available [address] [place], [address] 11/09/2023 19:48:30 11/09/19 24 11/09/2023 COMPR EHENS BRISSA METAB OLIC PANEL ALT 56 U/L 14-59 normal Not Available [address] [place], [address] 11/09/2023 19:48:30 11/09/19 24 11/09/2023 C-MARIELOS CTIVE PROTE IN C-reactive protein 3.39 mg/dL <or=0. 5 high Not Available [address] [place], [address] 11/09/2023 19:48:30 11/16/19 24 11/16/2023 COMPL ETE BLOOD COUNT W/DIF F WBC 3.75 10_3/ uL 4.4-10 .8 low Not Available [address] [place], [address] 11/16/2023 13:50:58 11/16/19 24 11/16/2023 COMPL ETE BLOOD COUNT W/DIF F RBC 4.38 10_6/ uL 3.93-5 .22 normal Not Available [address] [place], [address] 11/16/2023 13:50:58 11/16/19 24 11/16/2023 COMPL ETE BLOOD COUNT W/DIF F HGB 12.2 g/dL 11.2-1 5.7 normal Not Available [address] [place], [address] 11/16/2023 13:50:58 11/16/19 24 11/16/2023 COMPL ETE BLOOD COUNT W/DIF F HCT 38.3 % 36.0-4 6.0 normal Not Available [address] [place], [address] 11/16/2023 13:50:58 11/16/19 24 11/16/2023 COMPL ETE BLOOD COUNT W/DIF F MCV 87 fL 80-95 normal Not Available [address] [place], [address] 11/16/2023 13:50:58 11/16/19 24 11/16/2023 COMPL ETE BLOOD COUNT W/DIF F MCH 27.9 pg 27.0-3 3.0 normal Not Available [address] [place], [address] 11/16/2023 13:50:58 11/16/19 24 11/16/2023 COMPL ETE BLOOD COUNT W/DIF F MCHC 31.9 % 32.0-3 6.0 low Not Available [address] [place], [address] 11/16/2023 13:50:58 11/16/19 24 11/16/2023 COMPL ETE BLOOD COUNT W/DIF F RDW 14.4 % 11.7-1 4.6 normal Not Available [address] [place], [address] 11/16/2023 13:50:58 11/16/19 24 11/16/2023 COMPL ETE BLOOD COUNT W/DIF F platelet count 319 10_3/ uL 130-40 0 normal Not Available [address] [place], [address] 11/16/2023 13:50:58 11/16/19 24 11/16/2023 COMPL ETE BLOOD COUNT W/DIF F MPV 10.1 fL 8.0-11 .0 normal Not Available [address] [place], [address] 11/16/2023 13:50:58 11/16/19 24 11/16/2023 COMPL ETE BLOOD COUNT W/DIF F neutrophils % 53.6 % Not Available [address] [place], [address] 11/16/2023 13:50:58 11/16/19 24 11/16/2023 COMPL ETE BLOOD COUNT W/DIF F lymphocytes % 34.9 % Not Available [address] [place], [address] 11/16/2023 13:50:58 11/16/19 24 11/16/2023 COMPL ETE BLOOD COUNT W/DIF F monocytes % 6.4 % Not Available [address] [place], [address] 11/16/2023 13:50:58 11/16/19 24 11/16/2023 COMPL ETE BLOOD COUNT W/DIF F eosinophils % 4.0 % Not Available [address] [place], [address] 11/16/2023 13:50:58 11/16/19 24 11/16/2023 COMPL ETE BLOOD COUNT W/DIF F basophils % 0.8 % Not Available [address] [place], [address] 11/16/2023 13:50:58 11/16/19 24 11/16/2023 COMPL ETE BLOOD COUNT W/DIF F immature grans % 0.3 % Not Available [address] [place], [address] 11/16/2023 13:50:58 11/16/19 24 11/16/2023 COMPL ETE BLOOD COUNT W/DIF F nucleated RBC 0.0 % 0.0-0. 3 normal Not Available [address] [place], [address] 11/16/2023 13:50:58 11/16/19 24 11/16/2023 COMPL ETE BLOOD COUNT W/DIF F absolute neutrophil count 2.01 10_3/ uL 1.2-6. 7 normal Not Available [address] [place], [address] 11/16/2023 13:50:58 11/16/19 24 11/16/2023 COMPL ETE BLOOD COUNT W/DIF F absolute lymphocyte count 1.31 10_3/ uL 1.2-3. 4 normal Not Available [address] [place], [address] 11/16/2023 13:50:58 11/16/19 24 11/16/2023 COMPL ETE BLOOD COUNT W/DIF F absolute monocyte count 0.24 10_3/ uL 0.1-0. 8 normal Not Available [address] [place], [address] 11/16/2023 13:50:58 11/16/19 24 11/16/2023 COMPL ETE BLOOD COUNT W/DIF F absolute eosinophil count 0.15 10_3/ uL 0.0-0. 7 normal Not Available [address] [place], [address] 11/16/2023 13:50:58 11/16/19 24 11/16/2023 COMPL ETE BLOOD COUNT W/DIF F absolute basophil count 0.03 10_3/ uL 0.0-0. 2 normal Not Available [address] [place], [address] 11/16/2023 13:50:58 11/16/19 24 11/16/2023 COMPR EHENS BRISSA METAB OLIC PANEL calcium 8.9 mg/dL 8.5-10 .1 normal Not Available [address] [place], [address] 11/16/2023 14:42:19 11/16/19 24 11/16/2023 COMPR EHENS BRISSA METAB OLIC PANEL glucose 108 mg/dL 74-106 high Not Available [address] [place], [address] 11/16/2023 14:42:19 11/16/19 24 11/16/2023 COMPR EHENS BRISSA METAB OLIC PANEL BUN 13 mg/dL 7-18 normal Not Available [address] [place], [address] 11/16/2023 14:42:19 11/16/19 24 11/16/2023 COMPR EHENS BRISSA METAB OLIC PANEL creatinine 0.4 mg/dL 0.55-1 .02 low Not Available [address] [place], [address] 11/16/2023 14:42:19 11/16/19 24 11/16/2023 COMPR EHENS BRISSA METAB OLIC PANEL estimated GFR 136.46 mL/min /1.73m 2 Not Available [address] [place], [address] 11/16/2023 14:42:19 11/16/19 24 11/16/2023 COMPR EHENS BRISSA METAB OLIC PANEL total protein 7.5 g/dL 6.4-8. 2 normal Not Available [address] [place], [address] 11/16/2023 14:42:19 11/16/19 24 11/16/2023 COMPR EHENS BRISSA METAB OLIC PANEL albumin 3.1 g/dL 3.4-5. 0 low Not Available [address] [place], [address] 11/16/2023 14:42:19 11/16/19 24 11/16/2023 COMPR EHENS BRISSA METAB OLIC PANEL bilirubin, total 0.20 mg/dL 0.2-1. 0 normal Not Available [address] [place], [address] 11/16/2023 14:42:19 11/16/19 24 11/16/2023 COMPR EHENS BRISSA METAB OLIC PANEL alk phos 192 U/L 46-116 high Not Available [address] [place], [address] 11/16/2023 14:42:19 11/16/19 24 11/16/2023 COMPR EHENS BRISSA METAB OLIC PANEL sodium 144 mmol/ L 136-14 5 normal Not Available [address] [place], [address] 11/16/2023 14:42:19 11/16/19 24 11/16/2023 COMPR EHENS BRISSA METAB OLIC PANEL potassium 4.0 mmol/ L 3.5-5. 1 normal Not Available [address] [place], [address] 11/16/2023 14:42:19 11/16/19 24 11/16/2023 COMPR EHENS BRISSA METAB OLIC PANEL chloride 107 mmol/ L 98-107 normal Not Available [address] [place], [address] 11/16/2023 14:42:19 11/16/19 24 11/16/2023 COMPR EHENS BRISSA METAB OLIC PANEL CO2 28.9 mmol/ L 21.0-3 2.0 normal Not Available [address] [place], [address] 11/16/2023 14:42:19 11/16/19 24 11/16/2023 COMPR EHENS BRISSA METAB OLIC PANEL anion gap 8.1 mmol/ L 3-11 normal Not Available [address] [place], [address] 11/16/2023 14:42:19 11/16/19 24 11/16/2023 COMPR EHENS BRISSA METAB OLIC PANEL AST 38 U/L 15-37 high Not Available [address] [place], [address] 11/16/2023 14:42:19 11/16/19 24 11/16/2023 COMPR EHENS BRISSA METAB OLIC PANEL ALT 75 U/L 14-59 high Not Available [address] [place], [address] 11/16/2023 14:42:19 11/16/19 24 11/16/2023 C-MARIELOS CTIVE PROTE IN C-reactive protein 1.57 mg/dL <or=0. 5 high Not Available [address] [place], [address] 11/16/2023 14:42:19 06/10/19 24 06/10/2023 x-ray imagi ng manny duarte Name: Tana Cavazos Unit #: [id number] Loc: DI Orderi ng Provid er: Caleb Lopez M.D. Accoun t #: [id number] Status : REG CLI Primar [...] t positi oning and scolio sis. 2. Pharmacist Technician ior spinal rods within a right convex [...] bution by any person other than this [facility] is strict ly prohib ited. If you receiv e this report in error, please notify us immedi corina at and return the origin al report to us at the addres s above. Thank- you. [facility] [address], [place], [address] 06/11/2023 05:27:44 06/10/19 24 06/10/2023 x-ray imagi ng repor t Patien t Name: Tana Cavazos Unit #: [id number] Loc: DI Kevin Pantoja er: GILSON BARKSDALE [place]ear[place] t #: [id number] Status : REG CLI Primar y Care [...] REPOSI TORY: RADIAT ION DOSE DELIVE RED: Domingo richards By: GILSON BARKSDALE CC: ------ ------ ------ [...] at the addres s above. Thank- you. [facility] [address], [place], [address] 06/11/2023 05:27:45 Result Notes None recorded. 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 Overall stable and well cared for. 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 Order mesh slings, caregiver will contact [facility] to see if the ones needed are available through them since not able to get through [facility]. Needs new TLSO for her back, [...] Problem Code Type: ICD-10; [address], [place], [address] , [facility] 3 06:06:34 Scoliosis deformity of spine Active 2016 Problem Code: M41.9; Problem Code Type: ICD-10; [address], [facility] [address] , [facility] 3 06:06:35 Spasm Active 201603/02/2017 - Comments only - Emelyn Easley MD - Patient will need on going physical therapy to help prevent worsening spasticity and contractures. Problem Code: R25.2; Problem Code Type: ICD-10; [address], [place], [address] , [facility] 3 06:06:35 Idiopathic urticaria Active 2016 Problem Code: L50.1; Problem Code Type: ICD-10; [address], [place], [address] , [facility] 3 06:06:35 Supraventricu lar tachycardia Active 201606/08/2017 - Comments only - Lorna Martinez APRN - monitor for now. Problem Code: I47.1; Problem Code Type: ICD-10; [address], [place], [address] , [facility] 3 06:06:35 Traumatic or non-traumatic injury Active 2016 Problem Code: T14.90; Problem Code Type: ICD-10; [address], [place], [address] , [facility] 3 06:06:35 Disorder of muscle Active 201610/20/2016 - Comments only - Emelyn Easley MD - This causes some constipation that has been improved by miralax. Problem Code: M62.9; Problem Code Type: ICD-10; LORNA MARTINEZ APRN [address], [place], [address] , [facility] 3 06:06:35 Adult health examination Active [...] ICD-10; LORNA MARTINEZ APRN [address], [place], [address] , [facility] 3 06:06:35 Impacted cerumen of bilateral ears Completed 201609/29/2016 09/15/2016 - Comments only - Jade Arevalo APPLICATION DEVELOPMENT PROJECT MANAGER - Rev'd procedure for cerumen removal using [...] H61.23; Problem Code Type: ICD-10; Not Available [facility] 3 03:53:19 Impacted cerumen Active 201612/03/2016 - Comments only - Jade Arevalo APPLICATION DEVELOPMENT PROJECT MANAGER - - Cerumen not impacted today. Recommended to continue regular checks at future visits, discussed appropriate ear hygiene, and advised f/u for development of symptoms such as ear pulling/pain or trouble hearing. The patient verbalized understanding and agreement to this care plan. 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 Wash cloth in her hand while sleeping. Continue with routine stretching and movement as able. Problem Code: M24.549; Problem Code Type: ICD-10; [address], [place], [address] , [facility] 3 06:06:35 History of skin and/or subcutaneous tissue disease Active 201706/08/2017 - Comments only - Lorna Martinez APRN - has seen podiatry. Monitor feet routinely. Problem Code: Z87.2; Problem Code Type: ICD-10; [address], [place], [address] , [facility] 3 06:06:35 Disorder of tooth development Completed 201703/11/2018 Problem Code: K00.9; Problem Code Type: ICD-10; Not Available [facility] 3 03:53:19 Exposure to communicable disease Completed 202004/03/2021 Problem Code: Z20.828; Problem Code Type: ICD-10; Not Available [facility] 3 03:53:20 Localized eruption of skin Completed 202112/08/2021 Problem Code: R21; Problem Code Type: ICD-10; Not Available [facility] 3 03:53:20 Disorder of skin appendage Completed 202112/08/2021 Problem Code: L73.9; Problem Code Type: ICD-10; Not Available [facility] 3 03:53:20 Sepsis caused by Escherichia coli Active 202208/07/2022 - Comments only - Lorna Martinez APRN - continue mgmt through specialist. Blood drawn, may not be enough of sample but will send. If not enough, will need to come to office. drawn CBCD, CRP, CMP. Problem Code: A41.51; Problem Code Type: ICD-10; LORNA MARTINEZ APRN [address], [facility] [address] , [facility] 3 06:06:35 Constipation Active 2022 Problem Code: K59.00; Problem Code Type: ICD-10; LORNA MARTINEZ APRN [address], [facility] [address] , [facility] 3 06:06:35 Spinal cord abscess Active [address], [facility] [address] , [facility] 3 06:06:35 High enzyme level in serum Active 2022 Problem Code: R74.8; Problem Code Type: ICD-10; [address], [place], [address] , [facility] 3 06:06:35 Anemia Active 2022 Problem Code: D64.9; Problem Code Type: ICD-10; LORNA MARTINEZ APRN [address], [facility] [address] , [facility] 3 06:06:35 Vitamin D deficiency Active 2022 4.4.24- After completes current HD vitamin D she is to change to vitamin D 5000 IU once a day khb. LORNA MARTINEZ APRN [address], [place], [address] , [facility] 4 07:57:05 Osteomyelitis Active 2022 Problem Code: M86.9; Problem Code Type: ICD-10; LORNA MARTINEZ APRN [address], [facility] [address] , [facility] 3 06:06:35 Congenital deformity of spine Active 2022 Problem Code: Q67.5; Problem Code Type: ICD-10; [address], [facility] [address] , [facility] 3 06:06:35 Chronic osteomyelitis with draining sinus Active 2022 Problem Code: M86.48; Problem Code Type: ICD-10; [address], [facility] [address] , [facility] 3 06:06:35 Fever Completed 202011/07/2021 Problem Code: R50.9; Problem Code Type: ICD-10; Not Available [facility] 3 03:53:22 Pain of toe of left foot Completed 201603/02/2017 Problem Code: M79.675; Problem Code Type: ICD-10; Not Available [facility] 3 03:53:23 Tinea pedis Completed 201607/17/2020 Problem Code: B35.3; Problem Code Type: ICD-10; Not Available [facility] 3 03:53:23 Device in situ Completed 201609/02/2018 Problem Code: Z97.8; Problem Code Type: ICD-10; Not Available [facility] 3 03:53:24 Closed fracture of lower leg Completed 201607/17/2020 Problem Code: S82.90xD; Problem Code Type: ICD-10; Not Available [facility] 3 03:53:27 Pain of right wrist Completed 202011/07/2021 Problem Code: M25.531; Problem Code Type: ICD-10; Not Available [facility] 3 03:53:27 Disorder of skin and/or subcutaneous tissue Completed 201807/17/2020 Problem Code: L98.9; Problem Code Type: ICD-10; Not Available [facility] 3 03:53:28 Pain in right hip joint Completed 202011/07/2021 Problem Code: M25.551; Problem Code Type: ICD-10; Not Available [facility] 3 03:53:30 Muscle pain Completed 202011/07/2021 Problem Code: M79.10; Problem Code Type: ICD-10; Not Available [facility] 3 03:53:32 Pain in right lower limb Completed 201607/17/2020 Problem Code: M79.604; Problem Code Type: ICD-10; Not Available [facility] 3 03:53:32 Vaccine adverse reaction Completed 201911/07/2021 Not Available [facility] 3 03:53:33 Chronic ulcer of foot Completed 201707/17/2020 Problem Code: L97.529; Problem Code Type: ICD-10; Not Available [facility] 3 03:53:33 Accidental fall Completed 201807/17/2020 Not Available [facility] 3 03:53:34 Cellulitis of toe Completed 201605/08/2017 Problem Code: L03.039; Problem Code Type: ICD-10; Not Available [facility] 3 03:53:35 Pre-surgery evaluation Completed 202202/22/2023 Problem Code: Z01.818; Problem Code Type: ICD-10; Not Available [facility] 4 05:38:03 Intertrigo Active 2023 Martha Lopez RN null, [facility] 4 09:39:19 Thrombocytosi s Active 2023 LORNA MARTINEZ APRN [address], [place], [address] , [facility] 4 21:17:57 Impacted cerumen Active 2023 LORNA MARTINEZ APRN [address], [place], [address] , [facility] 4 10:33:20 Notes:*Problem Name: Oliguri a and anuria *Problem Status: active *Comments: *Problem Code: R34 *Problem Code Type: ICD-10 *Note Date: 03/04/2018 Problem Notes None recorded. Procedures Surgical History None recorded. Imaging Results Imaging Date Name Status LastModified by Organiz [facility] Details LastModified Time 06/10/2023 x-ray imaging report completed [address] [place], [address] 06/11/2023 05:27:44 06/10/2023 x-ray imaging report completed [address] [place], [address] 06/11/2023 05:27:45 Procedure Notes None recorded. Medical Equipment None Reported. Allergies Allergen ID Allergen Name Allergen Category Reaction Reaction Severity Criticality Documentation Date Start Date Code Code System Note Provider Name and Address Organization Details Recorded Time 06395 fluoxetin e hydrochlo ride medicatio n other mild Not available 03/06/20232018 14595 4 RxNorm unsur e Aller gyRea ction : 'unsu re'; Not Available [facility] 3 16:14:36 30052 doxycycli ne Not available rash severe Not available 03/06/20232022 3640 RxNorm Aller gyRea ction : 'Rash , Gastr ointe avelino l,'; Not Available [facility] 3 16:14:36 Medications Name Sig Start Date [...] three times a day 09/27 completed last [facility] [...] Updated DateTime 04/24/2023 157.48 cm 22.7 kg/m2 40390.45 g 98 mm[Hg] 68 mm[Hg] [facility] 3 09:07:06 Date Recorded Body height Body mass index (BMI) Body weight Oxygen saturation Oxygen saturation in Arterial blood by Pulse oximetry Heart rate Systolic blood pressure Diastolic blood pressure Provider Name and Address Organization Details Last Updated DateTime 4 157.48 cm 22.7 kg/m2 83031.4 5 g 99 % 99 % 86 /min 112 mm[Hg] 74 mm[Hg] [facility] 4 08:53:15 Date Recorded Body height Body mass index (BMI) Body weight Body temperature Oxygen saturation Oxygen saturation in Arterial blood by Pulse oximetry Heart rate Systolic blood pressure Diastolic blood pressure Provider Name and Address Organization Details Last Updated DateTime 4 157.48 cm 22.6 kg/m2 26948.9 6 g 97.9 [degF] 97 % 97 % 110 /min 98 mm[Hg] 64 mm[Hg] [facility] 10:12:40 Social History None recorded. [...] Recorded Time MMR 09/16/1994 completed Not [facility] 03:50:44 MMR 03/20/1998 completed Not Available [facility] 03:50:45 DTaP, unspecified formulation 05/15/1994 completed Not Available [facility] 03/06/2023 03:50:45 DTaP, unspecified formulation 1993 completed Not Available [facility] 03/06/2023 03:50:45 DTaP, unspecified formulation 1993 completed Not Available [facility] 03/06/2023 03:50:45 DTaP, unspecified formulation 03/07/1994 completed Not Available [facility] 03/06/2023 03:50:45 DTaP, unspecified formulation 03/20/1998 completed Not Available [facility] 03/06/2023 03:50:45 meningococcal ACWY, unspecified formulation 09/15/2011 completed Not Available [facility] 03/06/2023 03:50:46 Td (adult), 5 Lf tetanus toxoid, preservative free, adsorbed 10/20/2016 completed Not Available [facility] 03/06/2023 03:50:46 Tdap 10/22/2018 completed Not Available [facility] 03:50:46 Tdap 11/24/2006 completed Not Available [facility] 03:50:46 Influenza, split virus, quadrivalent, PF 01/15/2021 completed Not Available [facility] 03/06/2023 03:50:47 Influenza, split virus, quadrivalent, PF 02/17/2022 completed Not Available [facility] 03/06/2023 03:50:47 Influenza, split virus, quadrivalent, PF 02/28/2019 completed Not Available [facility] 03/06/2023 03:50:48 Influenza, split virus, quadrivalent, PF 04/02/2020 completed Not Available [facility] 03/06/2023 03:50:48 Influenza, split virus, quadrivalent, preservative 03/02/2017 completed Not Available [facility] 03/06/2023 03:50:48 Influenza, split virus, quadrivalent, preservative 03/04/2018 completed Not Available [facility] 03/06/2023 03:50:48 Hib, unspecified formulation 1993 completed Not Available [facility] 03/06/2023 03:50:48 Hib, unspecified formulation 09/16/1994 completed Not Available [facility] 03/06/2023 03:50:49 Hib, unspecified formulation 1993 completed Not Available [facility] 03/06/2023 03:50:49 Hib, unspecified formulation 03/07/1994 completed Not Available [facility] 03/06/2023 03:50:49 COVID-19, mRNA, LNP-S, PF, 100 mcg/0.5mL dose or 50 mcg/0.25mL dose 08/21/2020 completed Not Available [facility] 03/06/20 03:50:49 COVID-19, mRNA, LNP-S, PF, 100 mcg/0.5mL dose or 50 mcg/0.25mL dose 09/18/2020 completed Not Available [facility] 03/06/20 03:50:49 COVID-19, mRNA, LNP-S, PF, 100 mcg/0.5mL dose or 50 mcg/0.25mL dose 04/10/2021 completed Not Available [facility] 03/06/20 03:50:50 varicella 11/24/2006 completed Not Available [facility] 03:50:50 varicella 01/21/1999 completed Not Available [facility] 03:50:50 SARS-COV-2 (COVID-19) vaccine, UNSPECIFIED 09/25/2021 completed Not Available [facility] 03/06/2023 03:50:50 Hep B, unspecified formulation 1993 completed Not Available [facility] 03/06/2023 03:50:51 Hep B, unspecified formulation 1993 completed Not Available [facility] 03/06/2023 03:50:51 Hep B, unspecified formulation 03/07/1994 completed Not Available [facility] 03/06/2023 03:50:52 Hep A, unspecified formulation 06/22/2000 completed Not Available [facility] 03/06/2023 03:50:52 Hep A, unspecified formulation 11/07/1997 completed Not Available [facility] 03/06/2023 03:50:52 influenza, unspecified formulation 01/18/2016 completed Not Available [facility] 03/06/2023 03:50:52 polio, unspecified formulation 05/15/1994 completed Not Available [facility] 03/06/2023 03:50:52 polio, unspecified formulation 1993 completed Not Available [facility] 03/06/2023 03:50:52 polio, unspecified formulation 09/15/1994 completed Not Available [facility] 03/06/2023 03:50:53 polio, unspecified formulation 03/07/1994 completed Not Available [facility] 03/06/2023 03:50:53 Influenza, split virus, quadrivalent, PF 01/23/2023 completed Not Available [facility] 05/08/2023 05:31:40 Past Encounters Encounter ID Performer Location Encounter Start Date Encounter Closed Date Diagnosis/Indication Diagnosis SNOMED-CT Code [id number] LORNA MICHEL[address] [address] 04/24/2023 08:44:16 04/24/2023 10:09:30 Tetraplegia 97600943 Osteomyelitis 29800195 High enzym e level in serum 303922171 [id number] LORNA [address] [address] 07/24/2023 08:40:55 07/24/2023 09:38:18 Tetraplegia 06094284 Osteomyelitis 42080427 High enzym e level in serum 226698885 [id number] [address] [address] 11/10/2023 09:56:28 11/10/2023 12:18:07 Tetraplegia 51577776 Osteomyelitis 29516470 High enzym e level in serum 817807467 Vitamin D deficiency 347 [address]1244 [facility] cerumen 4538979 6 Health Concerns Section Related Observation LastModified by Organization Detai ls LastModified Time None Recorded Concern Status LastModified by Organization Details LastModified Time None Recorded Advance Directives Directive None Recorded Payers Encounter Date Sequence Insurance Name Policy Number Policy Green Covered Member ID Green Member ID Guarantor Name 04/24/2023 1 [facility] (MEDICAID) Tana Cavazos [id number] Tana Cavazos 07/24/2023 1 [facility] (MEDICAID) Tana Cavazos [id number] Tana Dirk 11/10/2023 1 [facility] (MEDICAID) Tana Cavazos [id number] Tana Cavazos Notes Date Note Type Note [...] at [facility] and ID at [facility] [...] TID did help with this. LORNA MARTINEZ, [employer]ODUCTION [employer] [address], [place], [address], [facility]. 04/24/2023 10:55:28 07/24/2023 text/html HPI Notes: Is [...] at [facility] and ID at [facility] [...] and see how she does. LORNA MARTINEZ, PRODUCTION TRUCK [employer]IVER [address], [place], [address], [facility]. 07/24/2023 09:32:54 11/10/2023 text/html HPI Notes: [...] at [facility] and ID at [facility] [...] has full guardianship of Kalyan. LORNA MARTINEZ, PRODUCTION TRUCK DRIVER [address], [place], [address], [facility]. 11/10/2023 12:42:59 OBGyn Episode No OBEpisode recorded.
--- OUTSIDE RECORDS SUMMARY | 2023-11-23 16:33 | XMS_ITS | Clinical Summary ---
Author Organization [facility] Address [facility] [address] Care Team Providers Care Delivery Specialist Name Role Phone Lorna Bal APRN Primary Care Provider [phone] Allergies Active Allergy Reactions Criticality Noted Date Comments Cyclobenzaprine 01/28/2023 Other Reaction(s): Not available Doxycycline Other (See Comments) 08/05/2023 Cough, rash Fluoxetine Other (See Comments) High 02/28/2014 HIVES, HEART RACES Penicillins 06/24/2022 Transparent Dressings Itching,Dermatitis Medium 2014 Please use [id number] Medications Medication Sig Dispensed Refills Start Date [...] Team Description 11/09/2023 Telephone Infectious Disease at [place] [phone] Yas Tracy RN 10/28/2023 8:05 PM EDT - 11/03/2023 5:25 PM EDT Hospital Encounter Medical Specialites Unit Level 1 [place] [address] David, MD Damaris Arias, MD Vianey Zafar Muhammad, MD Ivan, Adrian M, MD Lurie, Jonathan D, MD Abscess; Spinal abscess Discharge Disposition: Home with VNA 10/28/2023 Travel 10/28/2023 [place] [address] Neva Thorpe RN 10/28/2023 [place] [address] Neva Thorpe RN 10/28/2023 Tele[place] [address] Neva Thorpe RN 10/28/2023 [place] [address] Neva Thorpe RN 10/27/2023 [place] [address] Hollie Ambriz MD 10/27/2023 Tele[place] [address] Halima García 09/29/2023 10:30 AM EDT Office Visit Orthopaedics at [place] [phone] Chuckie Mayfield MD Chronic pain of right thumb; 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 09/29/2023 10:00 AM EDT Office [place] [address] Gaby Lake OT 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; Spasticity 09/29/2023 Travel 09/28/2023 Orders Only Infectious Disease at [place] [phone] Hollie Ambriz MD 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; Spinal abscess; Acute hematogenous osteomyelitis, unspecified site 09/24/2023 10:00 AM EDT Office [place] [address] George Tipton MD Spinal abscess; penitentiary 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 09/24/2023 Travel 09/10/2023 [place] [address] Hollie Ambriz MD 08/24/2023 9:00 AM EDT TH Visit (TeleHealth) Gastroenterology at [place] [phone] 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 No 10/29/2023 DH IPV Inpatient [...] EDT TH Visit (TeleHealth) [place] [phone] Lilli Joy APRN [facility] [place] [address] 12/03/2023 12:30 PM EDT Office [place] [address] Hollie Ambriz MD [facility] INFECTIOUS DISEASE [place], [place] [phone] 12/03/2023 2:30 PM EDT Hospital [place] [address] Andrade Melvin MD [facility] [place] [address] Health Maintenance Due Date Last Done Comments [...] Priority Date/Time Associated Diagnosis Comments LAB SCAN 11/18/2023 12:00 AM EDT LAB SCAN 11/17/2023 12:00 AM EDT LAB SCAN 11/16/2023 12:00 [...] 3 Months Results * Scan Doc: Lab (11/18/2023 12:00 AM EDT) Only the most recent of7 resultswithin the time period is included. Narrative 11/18/2023 12:00 AM EDT Ordered by an unspecified provider. Scanning Provider MEDIA MGR SCAN EXT O RDR/RSLT * Place PICC Line: Contact Vascular Access Page [phone] Extremity to exclude: No restrictions; Is PICC [...] to the planned procedure. Hand Hygiene: The cardboard inserter did perform hand hygiene prior to line insertion. Catheter type: PICC Lot number: [id number] Procedure Technique: Skin was prepped with chlorhexidine. [...] Guidance (IV Team) (11/03/2023 11:19 AM EDT) WORKSTATION ID [id number] DH RAD Anatomical Region Laterality Modality N/A Radio [...] who have questions please contact the health group care worker that requested your imaging first. ? Narrative [...] patients who have questions please contactthe health group care worker that requested your imaging first. Isaiah Samayoa [...] [facility] CRP 62.8(H) <=4.9 mg/L [facility] Blood 11/02/2023 5:26 AM EDT 11/02/2023 5:44 AM EDT Narrative Resulting Agency Comment Spec In Lab Isaiah Samayoa MD CHEMISTRY ORDERABLES [facility] [place] [address] * (ABNORMAL) Hemogram (11/02/2023 5:26 AM EDT) Only the most recent of5 resultswithin the time period is included. Pathologist [facility] WBC 7.5 4.0 - 9.5 x10(3)/[facility] LAB[facility] RBC 3.89(L) 4.00 - 5.21 x10(6)/[facility] Hemoglobin 11.1(L) 11.7 - 15.5 g/dL [facility] Hematocrit 33.8(L) 35.7 - 45.8 % [facility] MCV 86.9 82.6 - 94.4 fL [facility] MCH 28.5 27.1 - 32.0 pg [facility] MCHC 32.8 31.7 - 35.0 g/dL [facility] Platelets 477(H) 145 - 357 x10(3)/[facility] LABORATORY RDWSD 45.1 37.0 - 46.0 fL [facility] RDWCV 14.3(H) 11.5 - 14.1 % [facility] MPV 9.1 7.6 - 12.9 fL [facility] nRBC % Auto 0.0 % [facility] nRBC Abs Auto 0.000 0.000 - 0.000 x10(3)/[facility] Blood 11/02/2023 5:26 AM EDT 11/02/2023 5:43 AM EDT Narrative Resulting Agency Comment Spec In Lab Isaiah Samayoa MD HEMATOLOGY ORDERABLE S Performing Organization Address City/State/[facility] Co de Phone Number [facility] [place] [address] * Differential, Automated (11/02/2023 5:26 AM EDT) Only the most recent of5 resultswithin the time period is included. Neutrophils % 69.0 % [facility] Neutr Abs (ANC) 5.16 1.70 - 6.10 x10(3)/[facility] Lymphocytes % 21.7 % [facility] Lymphocytes Abs 1.6 0.9 - 3.2 x10(3)/[facility] Monocytes % 6.8 % [facility] Monocyte Abs 0.5 0.3 - 0.9 x10(3)/[facility] LABOR[facility]ORY Eosinophils % 1.6 % [facility] Eosinophils Abs 0.1 0.0 - 0.4 x10(3)/[facility] LABOR[facility]ORY Basophils % 0.5 % [facility] Basophils Abs 0.0 0.0 - 0.1 x10(3)/[facility] Immature Gran % 0.40 % [facility] Comment: Immature granulocytes(IG's)percentage and absolute count will include metamyelocytes, myelocytes, and promyelocytes. Blood smears from CBCs yielding IG's will be scanned manually for concordance. If this scan disagrees with the automated IG or if promyelocytes are noted, a manual differential will be performed. Debora Gran Abs 0.03 0.00 - 0.04 x10(3)/mcL [facility] Blood 11/02/2023 5:26 AM EDT 11/02/2023 5:43 AM EDT Narrative Resulting Agency Comment Spec In Lab Isaiah Samayoa MD HEMATOLOGY ORDERABLE S [facility] [place] [address] * CK (11/02/2023 5:26 AM EDT) Only the most recent of2 resultswithin the time period is included. CK, Total 14 0 - 160 unit/L [facility] Blood 11/02/2023 5:26 AM EDT 11/02/2023 5:44 AM EDT Narrative Resulting Agency Comment Spec In Lab Isaiah Samayoa MD CHEMISTRY ORDERABLES Performing Organization Address City/[facility]/ZIP Co de Phone Number [facility] [place] [address] * (ABNORMAL) Comprehensive metabolic panel (non-fasting) (11/02/2023 5:26 AM EDT) Only the most recent of2 resultswithin the time period is included. Glucose Lvl 109 65 - 199 mg/dL [facility] Comment:Diabetes: >=200 mg/d L plus symptoms BUN 13 8 - 18 mg/dL [facility] Comment:result rechecked-mg Creatinine 0.27(L) 0.70 - 1.20 mg/dL [facility] Sodium 138 135 - 145 mmol/L [facility] Potassium 3.9 3.5 - 5.0 mmol/L [facility] Comment: Please note: ??Patients with WBC >100,000 may have falsely elevated Potassium levels. ??For accurate Potassium quantification in these patients send serum separator tube (gold top) for subsequent determinations. ??Contact the Clinical Chemistry Laboratory if there are any questions. Chloride 104 98 - 107 mmol/L [facility] CO2 21(L) 22 - 31 mmol/L [facility] Anion Gap 13 5 - 15 mmol/L [facility] Calcium 9.8 8.5 - 10.5 mg/dL [facility] Total Protein 7.2 6.1 - 8.0 g/dL [facility] Albumin 3.5 3.2 - 5.2 g/dL [facility] AST 13 0 - 30 unit/L [facility] ALT 27 0 - 30 unit/L [facility] Alk Phos 209(H) 35 - 105 unit/L [facility] Total Bilirubin <0.2(L) 0.2 - 1.3 mg/dL [facility] Estimated GFR 150 >=60 mL/min/1. 73 m?? [facility] Comment: This patient's estimated GFR [...] In Lab Isaiah Samayoa MD CHEMISTRY ORDERABLES [facility] [place] [place] [address] * XR Abdomen 1 view (Generic) (11/01/2023 10:14 PM EDT) WORKSTATION ID [id number] RAD Anatomical Region Laterality Modality Abdomen N/A [...] who have questions please contact the health group care worker that requested your imaging first. ? Electronically signed by: Marisela Estrella MD, [facility] ([phone]), at 11/02/2023 8:47 AM Narrative 11/02/2023 8:47 [...] patients who have questions please contactthe health group care worker that requested your imaging first. Electronically signed by: Marisela Estrella MD, [facility]([phone]), at 11/02/2023 8:47 AM Mindy Benjamin Da Silva APRN IMG DX ORDERABLES * MRSA PCR Screen ([facility]/CGP/APD/NL) (10/31/2023 6:10 PM EDT) MRSA Result Negative Negative [facility] MRSA Interp Methicillin-resist ant Staphylococcus aureus (MRSA) is NOT DETECTED The MRSA target DNA sequences (mec and SCC) were not detected within the acceptable ranges using the Xpert MRSA NxG on the GeneXpert Dx System ([employer]). This suggests the absence of MRSA in the patient specimen submitted for testing. This test is cleared by the U.S. Food and Drug Administration for clinical use and its performance characteristics have been verified by the [facility] at [facility]. This result does not rule out the presence of any other organisms. Rare false negative results may occur if MRSA is present at low concentrations with much higher concentrations of other organisms including MRSE or S. aureus with an empty SCC cassette. [facility] Comment: [VERIFIED DATE]11.01.23 Verified By:Marisela Jolly (Electronic Signature) Nasopharyngeal Swab 10/31/19 6:10 PM EDT 11/01/2023 8:24 AM EDT Comment:Specimen Type->Nasop haryngeal Swab Narrative Resulting Agency Comment Spec In Lab Isaiah Samayoa MD MICROBIOLOGY - GENER AL ORDERABLES Performing Organization Address [facility] Co de Phone Number [facility] [place] [address] * (ABNORMAL) Sedimentation rate (10/31/2023 4:47 AM EDT) Only the most recent of4 resultswithin the time period is included. Sed Rate 113(H) 2 - 37 mm/hr [facility] Comment: Effective April 06, 2019 new capillary photometric technology has resulted in a change in reference ranges. It is recommended that each ESR result be reviewed with its own age appropriate reference range. Blood 10/31/2023 4:47 AM EDT 10/31/2023 4:55 AM EDT Narrative Resulting Agency Comment Spec In Lab Sharron Winters MD HEMATOLOGY ORDERABLE S Performing Organization Address [facility] de Phone Number [facility] [place] [address] * Magnesium (10/31/2023 4:47 AM EDT) Only the most recent of4 resultswithin the time period is included. Magnesium 0.86 0.69 - 1.07 mmol/L [facility] Blood 10/31/2023 4:47 AM EDT 10/31/2023 4:55 AM EDT Narrative Resulting Agency Comment Spec In Lab Sharron Winters MD CHEMISTRY ORDERABLES Performing Organization Address [facility] Co de Phone Number [facility] [place] [address] * (ABNORMAL) Basic Metabolic Panel (non-fasting) (10/31/2023 4:47 AM EDT) Only the most recent of4 resultswithin the time period is included. Glucose Lvl 120 65 - 199 mg/dL [facility] Comment:Diabetes: >=200 mg/d L plus symptoms BUN 8 8 - 18 mg/dL [facility] Creatinine 0.27(L) 0.70 - 1.20 mg/dL [facility] Sodium 140 135 - 145 mmol/L [facility] Potassium 3.8 3.5 - 5.0 mmol/L [facility] Comment: Please note: ??Patients with WBC >100,000 may have falsely elevated Potassium levels. ??For accurate Potassium quantification in these patients send serum separator tube (gold top) for subsequent determinations. ??Contact the Clinical Chemistry Laboratory if there are any questions. Chloride 106 98 - 107 mmol/L [facility] CO2 23 22 - 31 mmol/L [facility] Anion Gap 11 5 - 15 mmol/L [facility] Calcium 9.2 8.5 - 10.5 mg/dL [facility] Estimated GFR 150 >=60 mL/min/1. 73 m?? [facility] Comment: This patient's estimated GFR [...] In Lab Sharron Winters MD CHEMISTRY ORDERABLES [facility] [place] [address] * IR All Drainage Procedures (10/30/2023 3:23 [...] performed this procedure. ? Sharron Winters MD [facility] [place] ORDERABLES * Anaerobic Culture (10/30/2023 3:02 PM EDT) Anaerobic Culture No anaerobic organisms isolated [facility] Fluid 10/30/2023 3:02 PM EDT 10/30/2023 3:47 PM EDT Comment:Infected seroma/absc ess lower mid posterior presacral region. Fluid culture. Narrative Resulting Agency Comment Spec In Lab Andrade Melvin MD MICROBIOLOGY - GENER AL ORDERABLES Performing Organization Address [facility]/ZIP Co de Phone Number [facility] [place] [address] * Body Fluid Culture, Aerobic (10/30/2023 3:02 PM EDT) Body Fluid Culture Rare mixed bacterial morphotypes suggestive of normal cutaneous zenon [facility] Gram Stain Many Neutrophils seen No microorganisms seen. [facility] Fluid 10/30/2023 3:02 PM EDT 10/30/2023 3:47 PM EDT Comment:Infected seroma/absc ess lower mid posterior presacral region. Fluid culture. Narrative Resulting Agency Comment Spec In Lab Andrade Melvin MD MICROBIOLOGY - GENER AL ORDERABLES [facility] [place] [address] * POCT urine (10/29/2023 10:26 AM EDT) [facility] POC Urine HCG Negative POC Control Internal Controls Acceptable 10/29/2023 10:2 6 AM EDT Sharron Winters MD POINT OF CARE TEST O RDERABLES * Lactate, whole blood, send to lab ([facility]) (10/29/2023 8:37 AM EDT) [facility] Lactate WB 1.8 0.5 - 2.2 mmol/L [facility] Blood 10/29/2023 8:37 AM EDT 10/29/2023 8:47 AM EDT Narrative Resulting Agency Comment Spec In Lab Brennan Maldonado MD CHEMISTRY ORDERABLE S [facility] [place] [address] * Phosphorus (10/29/2023 8:37 AM EDT) Only the most recent of2 resultswithin the time period is included. [facility] Phosphorus 3.6 2.5 - 4.5 mg/dL [facility] Blood 10/29/2023 8:37 AM EDT 10/29/2023 8:47 AM EDT Narrative Resulting Agency Comment Spec In Lab Brennan Maldonado MD CHEMISTRY ORDERABLE S [facility] [place] [address] * (ABNORMAL) Urinalysis Microscopic Exam (10/29/2023 2:33 AM EDT) [facility] RBC UA >100(H) 0 - 4 /HPF [facility] WBC UA 4 0 - 5 /HPF [facility] Squam Epith UA 4 <=4 /HPF [facility] Hyaline Cast UA <1 0 - 2 /LPF [facility] Comment: Interpret results with caution, microscopic results are from suboptimal specimen volume Straight Catheter Urine 10/29/2023 2:33 AM EDT 10/29/2023 2:43 AM EDT Narrative Resulting Agency Comment Spec In Lab Sharron Winters MD URINE ORDERABLES Performing Organization Address City/[facility] Co de Phone Number [facility] [place] [address] * (ABNORMAL) Urinalysis with reflex Culture (10/29/2023 2:33 AM EDT) Glucose UA Negative Negative mg/dL [facility] Protein UA 30(A) Negative mg/dL [facility] Bilirubin UA Negative Negative mg/dL [facility] Comment: Clinical correlation required for positive Urine Bilirubin results as false positive may occur with some drugs and drug related products. If a false positive is suspected a serum total bilirubin should be considered if clinically indicated. Urobilinogen UA Normal Normal mg/dL [facility] pH UA 6.5 5.0 - 8.0 [facility] Blood UA Large(A) Negative mg/dL [facility] Ketones UA Negative Negative mg/dL [facility] Nitrite UA Negative Negative [facility] Leukocytes UA Negative Negative mcL [facility] Appearance UA Clear Clear [facility] Spec [place] UA >=1.030(A) 1.005 - 1.030 [facility] Color UA Yellow Yellow [facility] Culture Reflexed No [facility] Straight Catheter Urine 10/29/2023 2:33 AM EDT 10/29/2023 2:43 AM EDT Narrative Resulting Agency Comment Spec In Lab Sharron Winters MD URINE ORDERABLES [facility] [place] [address] * CT Lumbar Spine w Contrast (10/28/2023 9:50 PM EDT) WORKSTATION ID [id number] RAD Anatomical Region Laterality Modality L-spine Computed [...] who have questions please contact the health group care worker that requested your imaging first. ? Narrative [...] patients who have questions please contactthe health group care worker that requested your imaging first. Siomara Hernandez MD IMG CT ORDERABLES from Last 3 Months Advance Directives Documents on File Type Date Recorded Patient Methods Specialist Engineer Expl anation Personal Methods Specialist Engineer 04/29/2023 4:18 PM has new guardian Personal Methods Specialist Engineer 04/29/2023 2:04 PM has new guardian [...] Status decision made by: Patient Care Teams Delivery Specialist Relationship Specialty Start Date End Date Lorna Bal APRN [address] [place] [address] PCP - General Family Medicine 05/27/18
--- OUTSIDE RECORDS SUMMARY | 2023-11-23 16:34 | XMS_ITS | Encounter Summary ---
Author Organization [facility] Address [facility] [place] [address] Care Team Providers Care Entrepreneurial Finance Professor Name Role Phone Lorna Bal APRN Primary Care Provider [phone] Encounter Details Date Type Department Care Team [...] Department Care Team ( Contact Info) Description 11/25/2023 2:00 PM EDT TH Visit (TeleHealth) Infectious Disease [place] [address] Lilli Joy APRN [facility] [place] [address] 12/03/2023 12:30 PM EDT Office Visit Infectious Disease at [place] [phone] Hollie Ambriz MD [facility] [place] [address] 12/03/2023 2:30 PM EDT Hospital Encounter Radiology at [place] [phone] Andrade Melvin MD [facility] [place] [address] documented as of this encounter Visit Diagnoses Not on filedocumented in this encounter Care Teams Entrepreneurial Finance Professor Relationship Specialty Start Date End Date Lorna Bal APRN [address] [place] [address] PCP - General Family Medicine 05/27/18 documented as of this encounter
--- OUTSIDE RECORDS SUMMARY | 2023-11-23 16:34 | XMS_ITS | Encounter Summary ---
Author Organization [facility] Address [facility] [place] [address] Care Team Providers Care Pharmacometrician Name Role Phone Lorna Bal APRN Primary Care Provider [phone] Encounter Details Date Type Department Care Team (Late st Contact Info) Description 10/28/2023 Telephone [place] [address] Neva Thorpe, RN Social History Tobacco Use Types Packs/Day Years Used Date Smoking Tobacco: Never Passive Smoke Exposure: Never Smokeless Tobacco: Never Comments:NO SMOKERS IN THE H OME Alcohol Use Standard Drinks/Week Comments No 0 (1 standard drink = 0.6 oz pur e alcohol) [facility] Utilities Answer Date Recorded In the past 12 months has e [place], gas, oil, or water [employer] threatened to shut off services in your [...] any time in the past 12 m [facility], were you homeless or living in a [...] back ot to Fannie: Labs drawn at [facility] today-waiting for results Area still on her back. Bright red. Turns white when touched. Hot to the touch. Area is hard to thetouch. No drainage noted. Running a temperature of 99.9F consistently. Three days ago she 100.3F. Fannie states she is normally 96F. CT scan not scheduled yet. aFnnie will call to schedule today. Tana is eating normally/acting WNL. Inquired about Fannie being the contact on the [facility] portal. 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 Plan: Fannie will call back once she has the lab results. Will call to schedule CT Scan. Fannie understands that the department is closed tomorrow for the holiday. This RN explained how to reach the provider special weapons and tactics officer if necessary. Will review with Dr Hollie Ambriz 10/28/2023 1634 [facility] faxing labs over. Fannie states she is bringing Tana into the ER here at to be evaluated. Dr Ambriz updated documented in this encounter Plan of Treatment Upcoming Encounters Date Type Department Care Team (Late st Contact Info) Description 11/25/2023 2:00 PM EDT TH Visit (TeleHealth) Infectious Disease at [place] [phone] Lilli Joy APRN [facility] [place] [address] 12/03/2023 12:30 PM EDT Office Visit Infectious Disease at [place] [phone] Hollie Ambriz MD [facility] [place] [address] 12/03/2023 2:30 PM EDT Hospital Encounter Radiology at [place] [phone] Andrade Melvin MD [facility] [place] [address] documented as of this encounter Visit Diagnoses Not on filedocumented in this encounter Care Teams Pharmacometrician Relationship Specialty Start Date End Date Lorna Bal APRN [address] [place] [address] PCP - General Family Medicine 05/27/18 documented as of this encounter
--- OUTSIDE RECORDS SUMMARY | 2023-11-23 16:34 | XMS_ITS | Encounter Summary ---
[place] [address] Care Team Providers Care Triple Drum Operator Name Role Phone Lorna Bal APRN Primary Care Provider +1 -[phone] Reason for Referral * Occupational Therapy (Routine) - Closed Specialty Diagnoses / Procedures Referred By Contmonica t Referred To Contact Occupational Therapy Diagnoses Chronic pain of right thumb Lucho Foster MD [facility] [place] [address] [facility] [place] [address] Referral ID Status Reason Start Date Expiration Date V isits Requested Visits Authorized [id number] Closed Consult Only 09/29/2023 09/28/2024 30 30 * Physical Therapy (Routine) - Authorized Specialty Diagnoses / Procedures Referred By Contac t Referred To Contact Physical Therapy Diagnoses Chronic pain of right thumb Lucho Foster MD [facility] [place] [address] Referral ID Status Reason Start Date Expiration Date Visits Requested Visits Authorized [id number] Authorized Evaluate and Treat 09/29/2023 03/27/2024 12 12 Reason for Visit * Reason Comments Establish Care CONTRACTURE OF R VIKAS MB NO KNOWN INJURY Hx OF RELEASE DOS: ([facility]) CRISTELA * Consultation (Routine) - Authorized Specialty Diagnoses / Procedures Referred By Contac t Referred To Contact Orthopaedics Diagnoses Contracture of joint of hand, 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 Lorna Bal APRN [address] [place] [address] 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 Living situation: dual housing with two multimedia authoring specialist caregivers. Fannie is Guardian. Thumb in palm [...] [Transparent Dressings] Itching and Dermatitis Please use [id number] Cyclobenzaprine Other Reaction(s): Not available Doxycycline Other (See Comments) Cough, rash Penicillins Social history: Social History Tobacco Use Smoking status: Never Passive exposure: Never Smokeless tobacco: Never Tobacco comments: NO SMOKERS IN THE HOME Substance Use Topics Alcohol use: No Occupation: disabled Questionnaire Responses: 03/18/2019 [facility] Surgical Postop Visit PROMIS-10 General Health Very [...] EDT TH Visit (TeleHealth) [place] [address] Lilli Joy APRN [facility] [place] [address] 12/03/2023 12:30 PM EDT Office [place] [address] Hollie Ambriz MD [facility] [place] [address] 12/03/2023 2:30 PM EDT Hospital Encounter Radiology at [place] [address] Andrade Melvin MD [facility] [place] [address] Scheduled Referrals Name Type Priority Associated Diagnoses [...] unspecified documented in this encounter Care Teams Triple Drum Operator Relationship Specialty Start Date End Date Lorna Bal APRN [address] [place] [address] PCP - General Family Medicine 05/27/18 documented as of this encounter
--- OUTSIDE RECORDS SUMMARY | 2023-11-23 16:34 | XMS_ITS | Encounter Summary ---
Author Organization [facility] Address [facility] [place] [address] Care Team Providers Care Sheriffs Name Role Phone Lorna Bal APRN Primary Care Provider +1 -[phone] Encounter Details Date Type Department Care Team (Late st Contact Info) Description 08/05/2023 10:24 AM EDT Anesthesia [place] [phone] Christopher Johansen MD [facility] [place] [address] Buster Brooke Anesthesia Record Procedure Summary Procedure [...] Thornton RN 10/29/23 0000 by Jaye Murry, ENUICE Incision 07/04/22; 1559; Righ t, lower; thoracic [...] RN 10/29/23 1700 by Shahbaz Barfield Jr., EUNICE Incision 09/10/22; 1253; Righ t; gluteal; non-laparascopic puncture; LDA not present upon assessment; 10/29/23 09/10/22 1253 by Reji Qiu RN 10/29/23 0000 by Jaye Murry, RN (RETIRED) Peripheral IV Line - Single Lumen 09/26/22; 1042; metacarpal vein (top of hand), right; [id number] catheter system; 22 gauge; distraction, intradermal injection, tolerated well; LDA not present upon assessment; 10/29/23; 0840 09/26/22 1042 by Ramiro Aden LPN 10/29/23 0840 by Hank Christian RN Incision 09/26/22; 1328; Righ t; gluteal; non-laparascopic puncture; Aspiration site (Gregory, DO); LDA not present upon assessment; 10/29/23 09/26/22 1328 by Nathalie Hernández RN 10/29/23 0000 by Jaye Murry RN PIV 08/05/23; 1015; aypq-[id number] catheter system; 22 gauge; great saphenous vein [...] Procedure Summary Date: 08/05/23 Room / Location: [facility] ENDO 5 / [facility] ENDOSCOPY Anesthesia Start: 1024 Anesthesia Stop: 110 Procedure: COLONOSCOPY FLEXIBLE, WITH BX (WRVU 3.56) (Trunk) Diagnosis: Constipation, unspecified constipation type (Colonoscopy- Chronic constipation and anemia) Surgeons: Jamar Gastelum MD Responsible Provider: Christopher Johansen MD Anesthesia Type: MAC ASA Status: 3 All Anesthesia Providers: Anesthesiologist: Christopher Johansen MD Student Nurse Plant Quality Manager: Buster Brooke Vitals Value Taken Time BP 119/81 08/05/23 1125 Temp Pulse Resp 16 08/05/23 1125 SpO2 99 % 08/05/23 1127 Pain Level 0 08/05/23 1125 Vitals shown include unfiled device data. Patient Location: PACU/[facility] Level of Consciousness: Awake and Alert Pain [...] a 28 y.o. female. Procedure(s): [facility] Patient Active Problem List Diagnosis Date [...] All Drainage Procedures 06/25/2022 Mich Martino MD [facility] RAD ??? IR ALL DRAINAGE PROCEDURES 07/04/2022 IR All Drainage Procedures 07/04/2022 Mich Martino MD [facility] INTERVENTIONL RAD ??? IR ALL DRAINAGE PROCEDURES 07/24/2022 IR All Drainage Procedures 07/24/2022 Anurag Kumar MD [facility] INTERVENTIONL RAD ??? IR ALL DRAINAGE PROCEDURES 09/26/2022 IR All Drainage Procedures 09/26/2022 Jamaal Jenkins, DO [facility] INTERVENTIONL RAD ??? IR DRAIN CHECK/CHANGE/REMOVE 07/01/2022 IR Drain Check/Change/Remove 07/01/2022 Jamaal Jenkins, DO [facility] INTERVENTIONL RAD ??? IR DRAIN CHECK/CHANGE/REMOVE 08/11/2022 IR Drain Check/Change/Remove 08/11/2022 Piter Self MD [facility] INTERVENTIONL RAD ??? IR DRAIN CHECK/CHANGE/REMOVE 08/25/2022 IR Drain Check/Change/Remove 08/25/2022 Jamaal Jenkins, DO [facility] INTERVENTIONL RAD ??? IR DRAIN CHECK/CHANGE/REMOVE 09/10/2022 IR Drain Check/Change/Remove 09/10/2022 Mich Martino MD [facility] INTERVENTIONL RAD ??? PRO APPLY OF HIP CASTS, TWO LEGS 08/15/2010 CAST APPLICATION, HIP SPICA, BOTH LEGS performed by BARRERA OLIVER at [facility] OR ? ? PRO I&D, POST SPINE, LUMB/SACR/LUMBOSAC N/A 05/20/2014 @I & D, OPEN, DEEP ABSCESS, LUMBAR, SACRAL, LUMBOSACRAL performed by Freddy Isbell MD at [facility] OR ? ? PRO I&D, POST SPINE, LUMB/SACR/LUMBOSAC N/A 05/26/2014 @I & D, OPEN, DEEP ABSCESS, LUMBAR, SACRAL, LUMBOSACRAL performed by Freddy Isbell MD at [facility] OR ??? PRO IMPACT TOOTH REMOV COMP BONY N/A 06/14/2018 SURGICAL EXTRACTIONS, REMOVAL OF IMPACTED TOOTH, COMPLETELY BONY (WRVU 1.93) performed by Keith Cotton MD at [facility] OSC ??? PRO OSTEOTOMY FEMUR SHAFT/SUPRACONDY 08/15/2010 ??OSTEOTOMY, FEMUR SHAFT OR SUPRACONDYLAR W/O FIXATION performed by BARRERA OLIVER at [facility] MAIN OR ??? PRO RECONSTRUC HIP SOCKET, RESEC FEM HEAD 08/15/2010 ??ACETABULOPLASTY (GIRDLESTONE), RESECTION FEMORAL HEAD, BILATERAL performed by BARRERA OLIVER [facility] MAIN OR ??? PRO REMOVAL DEEP IMPLANT 08/15/2010 REMOVAL IMPLANT, DEEP, BRUNO performed by BARRERA OLIVER at [facility] MAIN OR ??? PRO REMOVAL ERUPTED TOOTH WITH ELEVATION OF MUCOPERIOSTEAL FLAP N/A 06/14/2018 SURGICAL EXTRACTIONS REQUIRING ELEVATION OF MUCOPERIOSTEAL FLAP AND REMOVAL OF BONE OR SECTION OF TOOTH (WRVU 1.09) performed by Keith Cotton MD at [facility] OSC ??? PRO REMOVE INFUSN DEVICE/PUMP N/A 05/11/2014 REMOVAL OF SPINE INFUSION PUMP performed by Jamaal Samuel MD at [facility] MAIN OR ??? PRO REMOVE SPINAL CANAL CATHETER N/A 05/11/2014 REMOVAL OF INTRATHECAL OR EPIDURAL CATHETER performed by Jamaal Samuel MD at [facility] MAIN OR ??? PRO REPR, DURAL/CSF LEAK, NOT REQ LAMINECTOMY N/A 05/20/2014 @REPAIR DURAL\CSF LEAK,NOT REQUIRING LAMINECTOMY performed by Freddy Isbell MD at [facility] MAIN OR Social History Tobacco Use ??? Smoking status: Never ??? Smokeless tobacco: Never ??? Tobacco comments: NO SMOKERS IN THE HOME Substance Use Topics ??? Alcohol use: No Social History Substance and Sexual Activity Drug Use No Allergies Allergen Reactions ??? Fluoxetine Other (See Comments) HIVES, HEART RACES ??? Tegaderm [Transparent Dressings] Itching and Dermatitis Please use [id number] ??? Cyclobenzaprine Other Reaction(s): Not available ??? [...] risks discussed with patient. Plan discussed with WAREHOUSE FREIGHT HANDLER. Anesthesia Screening documented in this encounter Plan of Treatment Upcoming Encounters Date Type Department Care Team (Late st Contact Info) Description 11/25/2023 2:00 PM EDT TH Visit (TeleHealth) [place] [address] Lilli Joy APRN [facility] [place] [address] 12/03/2023 12:30 PM EDT Office Visit Infectious Disease at [place] [phone] Hollie Ambriz MD [facility] [place] [address] 12/03/2023 2:30 PM EDT Hospital Encounter Radiology at [place] [phone] Andrade Melvin MD [facility] [place] [address] documented as of this encounter Visit Diagnoses [...] mg documented in this encounter Care Teams Sheriffs Relationship Specialty Start Date End Date Lorna Bal APRN [address] [place] [address] PCP - General Family Medicine 05/27/18 documented as of this encounter
--- OUTSIDE RECORDS SUMMARY | 2023-11-23 16:34 | XMS_ITS | Encounter Summary ---
Author Organization [facility] Address [facility] [place] [address] Care Team Providers Care Phlebotomist Prn Name Role Phone Lorna Bal APRN Primary Care Provider +1 -[phone] Reason for Visit * Reason Onset Date Comments Medication Refill 08/11/2023 Encounter Details Date Type Department Care Team (Late st Contact Info) Description 08/11/2023 Refill [place] [address] Hollie Ambriz MD [facility] [place] [address] Social History Tobacco Use Types Packs/Day Years [...] Visit (TeleHealth) Infectious Disease at [place] [address] Lilli Joy APRN [facility] [place] [address] 12/03/2023 12:30 PM EDT Office Visit Infectious Disease at [place] [address] Hollie Ambriz MD [facility] [place] [address] 12/03/2023 2:30 PM EDT Hospital [place] [address] Andrade Melvin MD [facility] [place] [address] documented as of this encounter Visit Diagnoses Not on filedocumented in this encounter Care Teams Phlebotomist Prn Relationship Specialty Start Date End Date Lorna Bal APRN [address] [place] [address] PCP - General Family Medicine 05/27/18 documented as of this encounter
--- OUTSIDE RECORDS SUMMARY | 2023-11-23 16:34 | XMS_ITS | Encounter Summary ---
Author Organization [facility] Address [facility] [place] [address] Care Team Providers Care Bingo Usher Name Role Phone Lorna Bal APRN Primary Care Provider +1 -[phone] Encounter Details Date Type Department Care Team (Latest Contact Info) Description 07/02/2023 11:00 AM EST TH Visit (TeleHealth) [place] [address] George Tipton MD [facility] CR[place]ICAL [place] [address] Spinal abscess; intermediate 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 Social History Tobacco Use Types Packs/Day Years Used Date Smoking Tobacco: Never Smokeless Tobacco: Never Comments:NO SMOKERS IN THE H OME Alcohol Use Standard Drinks/Week Comments No 0 (1 standard drink = 0.6 oz pur e alcohol) [facility] Inpatient Questions Answer Date Recorded Does [...] remained on bactrim. Followed up with in [place]. MRI was not possible sec. To hardware. CRP/ESR was trending upwards. NSG referred her to [facility] for surgery. The patient went [...] liquefied hematoma or abscess. 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 Subjective: We called and talked [...] Tipton MD Infectious Diseases Fellow- [id number] Pager: [phone] 07/01/2023 5:26 PM Plan discussed with Dr. Nikolay Toledo This note was created using [employer]) voice recognition software. * Nikolay Toledo MD [...] I am not in favor of continuing intermodal truck driver suppressive antibiotics. We discussed a tentative stopping [...] TH Visit (TeleHealth) [place] [address] Lilli Joy APRN [facility] DR [place] [address] 12/03/2023 12:30 PM EDT Office [place] [address] Nikolay Toledo MD [facility] DR [place] [address] 12/03/2023 2:30 PM EDT Hospital [place] [address] Andrade Melvin MD [facility] DR INTERVENTIONAL [place] [address] documented as of this encounter Visit Diagnoses Diagnosis Spinal abscess Acute osteomyelitis, other specified site 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
--- OUTSIDE RECORDS SUMMARY | 2023-11-23 16:34 | XMS_ITS | Encounter Summary ---
Author Organization formerly [facility] [place] [address] Care Team Providers Care Miniature Model Maker Name Role Phone Lorna Bal APRN Primary Care Provider +1 -[phone] Encounter Details Date Type Department Care Team (Late st Contact Info) Description 08/11/2023 Telephone [place] [phone] Halima García Social History Tobacco Use Types [...] (Bactrim) 400-80 mg tablet. Please send to: [facility]- - [place], [place] - [address] [facility] documented in this encounter Plan of Treatment Upcoming Encounters Date Type Department Care Team (Late st Contact Info) Description 11/25/2023 2:00 PM EDT TH Visit (TeleHealth) [place] [address] Lilli Joy APRN [facility] [place] [address] 12/03/2023 12:30 PM EDT Office [place] [address] Hollie Ambriz MD [facility] [place] [address] 12/03/2023 2:30 PM EDT Hospital Encounter Radiology at [place] [phone] Andrade Melvin MD [facility] DR [place] [address] documented as of this encounter Visit Diagnoses Not on filedocumented in this encounter Care Teams Miniature Model Maker Relationship Specialty Start Date End Date Lorna Bal APRN [address] [place] [address] PCP - General Family Medicine 05/27/18 documented as of this encounter
--- OUTSIDE RECORDS SUMMARY | 2023-11-23 16:34 | XMS_ITS | Encounter Summary ---
Author Organization [facility] Address [facility] [place] [address] Care Team Providers Care Bingo Checker Name Role Phone Lorna Bal APRN Primary Care Provider +1 -[phone] Encounter Details Date Type Department Care Team (Late st Contact Info) Description 10/28/2023 Telephone [place] [address] Neva Thorpe, RN Social History Tobacco Use Types Packs/Day Years Used Date Smoking Tobacco: Never Passive Smoke Exposure: Never Smokeless Tobacco: Never Comments:NO SMOKERS IN THE H OME Alcohol Use Standard Drinks/Week Comments No 0 (1 standard drink = 0.6 oz pur e alcohol) [facility] Utilities Answer Date Recorded In the past 12 months has e [employer], gas, oil, or water [employer] threatened to shut off services in your [...] any time in the past 12 m [facility], were you homeless or living in a fdc (including now)? No 10/29/2023 IPV Inpatient Questions [...] (TeleHealth) Infectious Disease at [facility] [place] [address] Lilli Joy APRN [facility] [place] [address] 12/03/2023 12:30 PM EDT Office [place] [address] Hollie Ambriz MD [facility] [place] [address] 12/03/2023 2:30 PM EDT Hospital [place] [address] Andrade Melvin MD [facility] [place] [address] documented as of this encounter Visit Diagnoses Not on filedocumented in this encounter Care Teams Bingo Checker Relationship Specialty Start Date End Date Lorna Bal APRN [address] [place] [address] PCP - General Family Medicine 05/27/18 documented as of this encounter
--- OUTSIDE RECORDS SUMMARY | 2023-11-23 16:34 | XMS_ITS | Encounter Summary ---
Author Organization [facility] Address [facility] [place] [address] Care Team Providers Care Shake Table Operator Name Role Phone Lorna Bal APRN Primary Care Provider +1 -[phone] Encounter Details Date Type Department Care Team (Late st Contact Info) Description 09/28/2023 Orders [place] [address] Hollie Ambriz MD [facility] [place] [address] senior living 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; Spinal abscess; Acute hematogenous osteomyelitis, unspecified site Social History Tobacco Use Types Packs/Day Years Used Date Smoking Tobacco: Never Smokeless Tobacco: Never Comments:NO SMOKERS IN THE H OME Alcohol Use Standard Drinks/Week Comments No 0 (1 standard drink = 0.6 oz pur e alcohol) [facility] Inpatient Questions Answer Date Recorded Does Anyone [...] EDT TH Visit (TeleHealth) Infectious Disease at [address] Lilli Joy APRN [facility] [place] [address] 12/03/2023 12:30 PM EDT Office [place] [address] Hollie Ambriz MD [facility] [place] [address] 12/03/2023 2:30 PM EDT Hospital [place] [address] Andrade Melvin MD 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
--- OUTSIDE RECORDS SUMMARY | 2023-11-23 16:34 | XMS_ITS | Encounter Summary ---
Author Organization [facility] Address [facility] [place] [address] Care Team Providers Care Manager Data Name Role Phone Lorna Bal APRN Primary Care Provider +1 -[phone] Encounter Details Date Type Department Care Team (Late st Contact Info) Description 09/24/2023 10:00 AM EDT Office [place] [address] Ronn Tipton MD [facility] [place] [address] Spinal abscess; [facility] 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 Social History Tobacco [...] remained on bactrim. Followed up with in [place]. MRI was not possible sec. To hardware. CRP/ESR was trending upwards. NSG referred her to [facility] for surgery. The patient went [...] liquefied hematoma or abscess. Neurosurgeon recommended continuing penitentiary suppressive antibiotics Subjective: [place] in [place] [...] Tipton MD Infectious Diseases Fellow- [id number] Pager: [phone] 09/23/2023 11:03 AM Plan discussed with Dr. Hollie Ambriz This note was created using [employer] voice recognition software. * Hollie Ambriz MD [...] EDT TH Visit (TeleHealth) [place] [address] Lilli Joy APRN [facility] [place] [address] 12/03/2023 12:30 PM EDT Office Visit Infectious Disease at [place] [phone] Hollie Ambriz MD [facility] DR INFECTIOUS DISEASE [place], [place] [address] 12/03/2023 2:30 PM EDT Hospital [place] [address] Andrade Melvin MD [facility] [place] [address] documented as of this encounter [...] In Lab Ronn Tipton MD CHEMISTRY ORDERABLES [facility] [place] [address] * (ABNORMAL) CRP, acute inflammation (09/24/2023 11:03 AM EDT) CRP 42.3(H) <=4.9 mg/L [facility] Blood 09/24/2023 11:0 3 AM EDT 09/24/2023 11:10 AM EDT Narrative Resulting Agency Comment Spec In Lab Ronn Tipton MD CHEMISTRY ORDERABLES [facility] [place] [address] documented in this encounter Visit Diagnoses Diagnosis Spinal abscess Acute osteomyelitis, other specified site 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
--- OUTSIDE RECORDS SUMMARY | 2023-11-23 16:34 | XMS_ITS | Encounter Summary ---
Author Organization [facility] Address [facility] [place] [address] Care Team Providers Care Roundsman Name Role Phone Lorna Bal APRN Primary Care Provider +1 [phone] Reason for Visit * Reason Comments Medication Refill Encounter Details Date Type Department Care Team (Late st Contact Info) Description 09/10/2023 Refill [place] [phone] Hollie Ambriz MD [facility] [place] [address] Social History Tobacco Use Types Packs/Day Years Used Date Smoking Tobacco: Never Smokeless Tobacco: Never Comments:NO SMOKERS IN THE H OME Alcohol Use Standard Drinks/Week Comments No 0 (1 standard drink = 0.6 oz pur e alcohol) [facility] Inpatient Questions Answer Date Recorded Does Anyone [...] EDT TH Visit (TeleHealth) [place] [address] Lilli Joy APRN [facility] [place] [address] 12/03/2023 12:30 PM EDT Office [place] [address] Hollie Ambriz MD [facility] [place] [address] 12/03/2023 2:30 PM EDT Hospital Encounter Radiology at [place] [phone] Andrade Melvin MD [facility] [place] [address] documented as of this encounter Visit Diagnoses Not on filedocumented in this encounter Care Teams Roundsman Relationship Specialty Start Date End Date Lorna Bal APRN [address] [place] [address] PCP - General Family Medicine 05/27/18 documented as of this encounter
--- OUTSIDE RECORDS SUMMARY | 2023-11-23 16:34 | XMS_ITS | Encounter Summary ---
Author Organization [facility] Address [facility] [place] [address] Care Team Providers Care Merchandising Manager Name Role Phone Lorna Bal APRN Primary Care Provider +1 [phone] Encounter Details Date Type Department Care Team (Late st Contact Info) Description 08/05/2023 10:15 AM EDT - 08/05/2023 11:00 AM EDT [place] [address] Jamar Gastelum MD [facility] [place] [address] COLONOSCOPY FLEXIBLE, WITH BX (WRVU 3.56) Social History Tobacco Use Types Packs/Day Years Used Date Smoking Tobacco: Never Smokeless Tobacco: Never Comments:NO SMOKERS IN THE H OME Alcohol Use Standard Drinks/Week Comments No 0 (1 standard drink = 0.6 oz pur e alcohol) [facility] Inpatient Questions Answer Date Recorded Does [...] occurs, please contact your Doctor. Please call [phone] before 8pm Mon-Fri with problems, questions or concerns. If you call after 8pm or on weekends, call the Hospital at [phone] and ask to speak to the Machine Maintenance Servicer control clerk repairs and the transportation maintenance operator will contact that person for you. When should you call for help? Call [phone] anytime you think you may need emergency [...] any problems. Where can you learn more? [facility] View your After Visit Summary and more online at [email or web address] If you would like to provide feedback about your hospital experience, please call the Office of Patient and Family Relations at . If you have received this After Visit Summary in error, please immediately return it in person to the department, or notify the [facility] Privacy Office by calling toll free at between the hours of 8AM and 5PM to arrange for our retrieval of the documents at no cost to you. Content Version: 12.2 ?? 4346-6474 [employer]. Care instructions adapted under license by [facility]. If you have questions about a medical condition or this instruction, always ask your healthcare professional. [employer] disclaims any warranty or liability for your [...] Gastelum MD - 08/05/2023 10:35 AM EDT [facility] Operative Note Patient Name: Tana Cavazos : [id number] MR#: [id number] Case Date: 08/05/2023 Surgeon: Surgeon(s) and Role: [...] EDT TH Visit (TeleHealth) Infectious Disease at [place] [phone] Lilli Joy APRN [facility] [place] [address] 12/03/2023 12:30 PM EDT Office Visit Infectious Disease at [place] [phone] Hollie Ambriz MD [facility] [place] [address] 12/03/2023 2:30 PM EDT Hospital Encounter Radiology at [place] [phone] Andrade Melvin MD [facility] [place] [address] documented as of this encounter Procedures Procedure Name Priority Date/Time Associated Diagnosis Comments SPECIMEN TO PATHOLOGY Routine 08/05/2023 11:01 AM EDT SURGICAL PATHOLOGY REPORT Routine 08/05/2023 11:00 AM EDT Colonoscopy, Biopsy ([id number]) 08/05/2023 10:27 AM EDT Constipation, unspecified constipation type COLONOSCOPY Routine 08/05/2023 9:59 AM EDT documented in this encounter Results * Specimen to Pathology (08/05/2023 11:01 AM EDT) AP Specimen 08/05/2023 11:0 1 AM EDT 08/05/2023 11:01 AM EDT Narrative [facility] - 08/05/2023 11:01 AM EDT Specimen requisition ordered. ??Separate Pathology report to follow Jamar Hair MD PATHOLOGY/CYTOLO GY ORDERABLES [facility] [place] [address] * Surgical Pathology Report (08/05/2023 11:00 AM EDT) FINAL DIAGNOSIS (AP) [id number] ? Location: 4T; EA11; A The signing pathologist has (i) examined the relevant preparation(s) for the specimen(s) and (ii) rendered or confirmed the diagnosis(es). . ?Surgical Pathology DIAGNOSIS A - Rectum r/o microscopic colitis, biopsy (Multiple): - ??Colonic mucosa within normal limits. CR-PX Electronically signed by: ?Jazmyne GIRALDO PhD, Courtney Verified: ??08/17/2023 16:08 ??Pathologist Performed at: ??-[facility] Dept. of Pathology, [place] [address] Musical Therapist: Frank Turpin MD, FCAP, ??CLIA Certificate: [id number] SPECIMEN(S) SUBMITTED A - rectum r/o microscopic colitis, biopsy (Multiple) CLINICAL INFORMATION 28-year-old female with chronic constipation SPECIMEN PROCESSING A - Labeled/Fixative : Rectum rule out microscopic colitis, formalin. Quantity/Size: Multiple, averaging 0.3 cm. Tissue Description: Soft, red tissues. Sections/Process ing: Submitted in toto ??in 2 cassettes labeled A1-A2. ??sns 08/17/2023 4:08 PM EDT [facility] 08/05/2023 11:0 0 AM EDT Jamar Hair MD PATHOLOGY/CYTOLO GY ORDERABLES Performing Organization Address [facility]/State/ZIP Co de Phone Number [facility] [place] [address] * COLONOSCOPY (08/05/2023 9:59 AM EDT) COLONOSCOPY [facility] Endoscopy ___ Procedure Date: 08/05/2023 9:59 AM ? Patient Name: Tana Cavazos ? Date of : 1995 ? Age: 28 ? Order #: [id number] ? Instrument Name: EC-760R- [id number] ? ___ Procedure: ? Colonoscopy Indications: ? [...] Active and Recently Administered Medications Care Teams Merchandising Manager Relationship Specialty Start Date End Date Lorna Bal, [place] [address] [place] [address] PCP - General Family Medicine 05/27/18 documented as of this encounter
--- OUTSIDE RECORDS SUMMARY | 2023-11-23 16:34 | XMS_ITS | Encounter Summary ---
Author Organization [facility] [place] [address] Care Team Providers Care Medical Record Coder Name Role Phone Lorna Bal APRN Primary Care Provider +1 [phone] Encounter Details Date Type Department Care Team (Late st Contact Info) Description 10/27/2023 Telephone [place] [phone] Halima García Social History Tobacco Use Types [...] Halima García - 10/27/2023 10:23 AM EDT geospatial technologist (josy) called stating the patient's infection has returned in her back. They are requesting an order for a aspiration to be put in. documented in this encounter Plan of Treatment Upcoming Encounters Date Type Department Care Team (Late st Contact Info) Description 11/25/2023 2:00 PM EDT TH Visit (TeleHealth) [place] [address] Lilli Joy APRN [facility] [place] [address] 12/03/2023 12:30 PM EDT Office [place] [address] Hollie Ambriz MD [facility] [place] [address] 12/03/2023 2:30 PM EDT Hospital [place] [address] Andrade Melvin MD [facility] [place] [address] documented as of this encounter Visit Diagnoses Not on filedocumented in this encounter Care Teams Medical Record Coder Relationship Specialty Start Date End Date Lorna Bal APRN [address] [place] [address] PCP - General Family Medicine 05/27/18 documented as of this encounter
--- OUTSIDE RECORDS SUMMARY | 2023-11-23 16:34 | XMS_ITS | Encounter Summary ---
Author Organization [facility] Address [facility] [place] [address] Care Team Providers Care Workforce Planner Name Role Phone Lorna Bal APRN Primary Care Provider +1 -[phone] Encounter Details Date Type Department Care Team (Latest Contact Info) Description 08/05/2023 9:03 AM EDT - 08/05/2023 11:39 AM EDT Hospital En[place] [address] Jamar Gastelum MD [facility] [place] [address] Discharge Disposition: Home Social History Tobacco Use [...] occurs, please contact your Doctor. Please call [phone] before 8pm Mon-Fri with problems, questions or concerns. If you call after 8pm or on weekends, call the Hospital at [phone] and ask to speak to the News Wire Photo Operator chief substation operator and the dampener operator will contact that person for you. When should you call for help? Call [phone] anytime you think you may need emergency [...] any problems. Where can you learn more? [facility] View your After Visit Summary and more online at [email or web address] If you would like to provide feedback about your hospital experience, please call the Office of Patient and Family Relations at . If you have received this After Visit Summary in error, please immediately return it in person to the department, or notify the [facility] Privacy Office by calling toll free at between the hours of 8AM and 5PM to arrange for our retrieval of the documents at no cost to you. Content Version: 12.2 ?? 1511-0327 [employer]. Care instructions adapted under license by [facility]. If you have questions about a medical condition or this instruction, always ask your healthcare professional. [employer] disclaims any warranty or liability for your [...] Gastelum MD - 08/05/2023 10:35 AM EDT [facility] Operative Note Patient Name: Tana Cavazos : [id number] MR#: [id number] Case Date: 08/05/2023 Surgeon: Surgeon(s) and Role: [...] Visit (TeleHealth) Infectious Disease at [place] [phone] Lilli Joy APRN [facility] [place] [address] 12/03/2023 12:30 PM EDT Office Visit Infectious Disease at [place] [phone] Hollie Ambriz MD [facility] [place] [address] 12/03/2023 2:30 PM EDT Hospital [place] [address] Andrade Melvin MD [facility] [place] [address] documented as of this encounter Procedures Procedure Name Priority Date/Time Associated Diagnosis Comments SPECIMEN TO PATHOLOGY Routine 08/05/2023 11:01 AM EDT SURGICAL PATHOLOGY REPORT Routine 08/05/2023 11:00 AM EDT Colonoscopy, Biopsy ([id number]) 08/05/2023 10:27 AM EDT Constipation, unspecified constipation type COLONOSCOPY Routine 08/05/2023 9:59 AM EDT documented in this encounter Results * Specimen to Pathology (08/05/2023 11:01 AM EDT) AP Specimen 08/05/2023 11:0 1 AM EDT 08/05/2023 11:01 AM EDT Narrative [facility] - 08/05/2023 11:01 AM EDT Specimen requisition ordered. ??Separate Pathology report to follow Jamar Hair MD PATHOLOGY/CYTOLO GY ORDERABLES [facility] [place] [address] * Surgical Pathology Report (08/05/2023 11:00 AM EDT) FINAL DIAGNOSIS (AP) [id number] ? Location: 4T; EA11; A The signing pathologist has (i) examined the relevant preparation(s) for the specimen(s) and (ii) rendered or confirmed the diagnosis(es). . ?Surgical Pathology DIAGNOSIS A - Rectum r/o microscopic colitis, biopsy (Multiple): - ??Colonic mucosa within normal limits. CR-PX Electronically signed by: ?Jazmyne GIRALDO PhD, Courtney Verified: ??08/17/2023 16:08 ??Pathologist Performed at: ??-[facility] Dept. of Pathology, [place] [address] Physical Anthropologist: Frank Turpin MD, FCAP, ??CLIA Certificate: [id number] SPECIMEN(S) SUBMITTED A - rectum r/o microscopic colitis, biopsy (Multiple) CLINICAL INFORMATION 28-year-old female with chronic constipation SPECIMEN PROCESSING A - Labeled/Fixative : Rectum rule out microscopic colitis, formalin. Quantity/Size: Multiple, averaging 0.3 cm. Tissue Description: Soft, red tissues. Sections/Process ing: Submitted in toto ??in 2 cassettes labeled A1-A2. ??sns 08/17/2023 4:08 PM EDT [facility] 08/05/2023 11:0 0 AM EDT Jamar Hair MD PATHOLOGY/CYTOLO GY ORDERABLES Performing Organization Address [facility]/State/ZIP Co de Phone Number [facility] [place] [place] [address] * COLONOSCOPY (08/05/2023 9:59 AM EDT) COLONOSCOPY [facility] Endoscopy ___ Procedure Date: 08/05/2023 9:59 AM ? Patient Name: Tana Cavazos ? Date of : 1995 ? Age: 28 ? Order #: [id number] ? Instrument Name: EC-760R- [id number] ? ___ Procedure: ? Colonoscopy Indications: ? [...] Active and Recently Administered Medications Care Teams Workforce Planner Relationship Specialty Start Date End Date Lorna Bal APRN [address] [place] [address] PCP - General Family Medicine 05/27/18 documented as of this encounter
--- OUTSIDE RECORDS SUMMARY | 2023-11-23 16:34 | XMS_ITS | Encounter Summary ---
Author Organization [facility] Address [facility] [place] [address] Care Team Providers Care Plant Director Name Role Phone Lorna Bal APRN Primary Care Provider +1 [phone] Encounter Details Date Type Department Care Team (Late st Contact Info) Description 10/27/2023 Telephone [place] [address] Nikolay Toledo MD [facility] [place] [address] Social History Tobacco Use Types Packs/Day Years Used Date Smoking Tobacco: Never Passive Smoke Exposure: Never Smokeless Tobacco: Never Comments:NO SMOKERS IN THE H OME Alcohol Use Standard Drinks/Week Comments No 0 (1 standard drink = 0.6 oz pur e alcohol) [facility] Utilities Answer Date Recorded In the past 12 months has e electric, gas, oil, or water company [...] were you homeless or living in a chcf (including now)? No 10/29/2023 [facility] Inpatient Questions Answer Date [...] Addendum Note - Nikolay Toledo MD - 11/19/2023 2:33 PM EDTAddended by: NIKOLAY TOLEDO on: 11/19/2023 02:33 PM Modules accepted: Orders * Telephone Encounter - Nikolay Toledo MD - 10/27/2023 12:19 PM EDT ID Telephone Call Spoke with Fannie about the fact that the patient's back has been increasingly warm and erythematousfor the past week and that she has been having low-grade fevers, though also in the setting of having come down with what sounds like a viral infection. Set shared plan of obtaining labs locally at [facility] and ideally coordinating a CT [facility]spine at [facility], followed by potential IR aspiration if a collection has reaccumulated. Ideally this would all be done before antibiotics are restarted in order to increase yield of cultures. Nikolay Toledo MD Staff Physician in Infectious Diseases documented in this encounter Plan of Treatment Upcoming Encounters Date Type Department Care Team (Late st Contact Info) Description 11/25/2023 2:00 PM EDT TH Visit (TeleHealth) [place] [address] Lilli Joy APRN [facility] DR INFECTIOUS DISEASE [place], [place] [id number] 12/03/2023 12:30 PM EDT Office [place] [address] Nikolay Toledo MD [facility] [place] [address] 12/03/2023 2:30 PM EDT Hospital [place] [address] Andrade Melvin MD [facility] [place] [address] Scheduled Orders Name Type Priority Associated Diagnoses Orde r Schedule CBC (with Diff) Lab Routine Spinal abscess Expected: 10/27/2023 (Approximate), Expires: 04/27/2024 Comprehensive metabolic panel (non-fasting) Lab Routine Spinal abscess Expected: 10/27/2023 (Approximate), Expires: 04/27/2024 CRP, acute inflammation Lab Routine Spinal abscess Expected: 10/27/2023, Expires: 04/27/2024 documented as of this encounter Visit Diagnoses Diagnosis Spinal abscess- Primary Acute osteomyelitis, other specified site documented in this encounter Care Teams Plant Director Relationship Specialty Start Date End Date Lorna Bal APRN [address] [place] [address] PCP - General Family Medicine 05/27/18 documented as of this encounter
--- OUTSIDE RECORDS SUMMARY | 2023-11-23 16:34 | XMS_ITS | Encounter Summary ---
Author Organization [facility] Address [facility] [place] [address] Care Team Providers Care Concert Pianist Name Role Phone Lorna Bal APRN Primary Care Provider +1 [phone] Encounter Details Date Type Department Care Team (Late st Contact Info) Description 10/28/2023 Telephone [place] [address] Neva Thorpe, RN Social History Tobacco Use Types Packs/Day Years Used Date Smoking Tobacco: Never Passive Smoke Exposure: Never Smokeless Tobacco: Never Comments:NO SMOKERS IN THE H OME Alcohol Use Standard Drinks/Week Comments No 0 (1 standard drink = 0.6 oz pur e alcohol) [facility] Utilities Answer Date Recorded In the past 12 months has e [facility], gas, oil, or water [employer] threatened to shut off services in your [...] any time in the past 12 m [facility], were you homeless or living in [...] EDT TH Visit (TeleHealth) [place] [address] Lilli Joy APRN [facility] [place] [address] 12/03/2023 12:30 PM EDT Office [place] [address] Hollie Ambriz MD [facility] [place] [address] 12/03/2023 2:30 PM EDT Hospital [place] [address] Andrade Melvin MD [facility] [place] [address] documented as of this encounter Visit Diagnoses Not on filedocumented in this encounter Care Teams Concert Pianist Relationship Specialty Start Date End Date Lorna Bal, TRAVEL TRAILER COMPONENTS ASSEMBLER [address] [place] [address] PCP - General Family Medicine 05/27/18 documented as of this encounter
--- OUTSIDE RECORDS SUMMARY | 2023-11-23 16:34 | XMS_ITS | Encounter Summary ---
Author Organization Formerly [facility] [place] [address] Care Team Providers Care Bottom Scrubber Name Role Phone Lorna Bal APRN Primary Care Provider [phone] Reason for Referral * Consultation (Routine) - Authorized Specialty Diagnoses / Procedures Referred By Contac t Referred To Contact Infectious Diseases Diagnoses Spinal abscess Hollie Ambriz MD [facility] [place] [address] Hollie Ambriz MD [facility] [place] [address] Referral ID Status Reason Start Date Expiration Date Visits Requested Visits Authorized [id number] Authorized Assume Subset of Care 11/02/2023 11/01/2024 1 1 * Home Health Care (Routine) - Authorized Specialty Diagnoses / Procedures Referred By Contac t Referred To Contact Diagnoses Spinal abscess Wally Rosen MD [facility] [place] [address] Home Health & [address] [place] [address] Referral ID Status Reason Start Date Expiration Date Visits Requested Visits Authorized [id number] Authorized Consult, Test & Treat 11/03/2023 05/01/2024 999 999 * Diagnostic Test (Routine) - Authorized Specialty Diagnoses / Procedures Referred By Contac t Referred To Contact Radiology Diagnoses Abscess Procedures IR Drain Check/Change/Remove Andrade Melvin MD [facility] [place] [address] [facility] [place] [address] Referral ID Status Reason Start Date Expiration Date Visits Requested Visits Authorized [id number] Authorized Specialty Service Requested 10/30/2023 05/01/2025 1 1 Reason for Visit * Reason Comments Abscess In back * Auth/Cert (Routine) Specialty Diagnoses / Procedures Referred By Contac t Referred To Contact Diagnoses Abscess Procedures EMERGENCY IPI Sharron Winters MD [facility] [place] [address] [facility] Referral ID Status Reason Start Date Expiration Date Visits Re quested Visits Authorized [id number] 1 1 Encounter Details Date Type Department Care Team (Latest Contact Info) Description 10/28/2023 8:05 PM EDT - 11/03/2023 5:25 PM EDT Hospital Encounter Medical Specialites Unit Level 1 [place] [address] Siomara Hernandez MD [facility] [place] [address] Andrade Ocapmo MD [facility] [place] [address] [place] [address] [place] [address] [place] [address] Abscess; Spinal abscess Discharge Disposition: Home with VNA Social History Tobacco Use Types Packs/Day Years Used Date Smoking Tobacco: Never Passive Smoke Exposure: Never Smokeless Tobacco: Never Comments:NO SMOKERS IN THE H OME Alcohol Use Standard Drinks/Week Comments No 0 (1 standard drink = 0.6 oz pur e alcohol) [facility] Utilities Answer Date Recorded In the past 12 months has th e [employer], gas, oil, or water [employer] threatened to shut off services in your [...] were you homeless or living in a custodial (including now)? No 10/29/2023 DH IPV Inpatient [...] Tana Cavazos Patient Age: 28 y.o. Language: Eritrean Race: White Ethnicity: Not nor Admit date: [...] please contact your inpatient physician through the [facility] [employer] . Issues afterhours and on weekends will [...] Paraspinal drain placement. Indication for Procedure: Per Viktoriya Oliverajohn Cavazos is a 28 y.o. female w/ [...] inflammatory markers. Tana was then brought to [facility], where she has been receiving her medical [...] 10/28/2023 9:50 PM) Result Value WORKSTATION ID [id number] Impression Focal heterogeneous organizing collection at the [...] who have questions please contact the health managed care provider that requested your imaging first. Abdomen 1 view (Generic) (Exam End: 11/01/2023 10:14 PM) Result Value WORKSTATION ID [id number] Impression 1. Rectal distention with stool. 2. No evidence of obstruction. 3. Bony demineralization, LEFT hip dysplasia, Mcnair rods, severe scoliosis Thank you for letting us participate in the care of this patient. If you are a health care provider and have any questions regarding this report, please contact the number below. For patients who have questions please contact the health managed care provider that requested your imaging first. Electronically signed by: Marisela Estrella MD, [facility] ([phone]), at 11/02/2023 8:47 AM XR PICC Placement Over 5 Years with Imaging Guidance (IV Team) (Exam End: 11/03/2023 11:19 AM) Result Value WORKSTATION ID [id number] Impression Satisfactory position of left PICC. I [...] who have questions please contact the health managed care provider that requested your imaging first. Pending Studies and Lab Data: none Discharge Conditions/Prognosis: stable Discharge to: home with OPAT Updated Allergies/ADRs: Allergies Allergen Reactions Fluoxetine Other (See Comments) HIVES, HEART RACES Tegaderm [Transparent Dressings] Itching and Dermatitis Please use [id number] Cyclobenzaprine Other Reaction(s): Not available Doxycycline Other (See Comments) Cough, rash Penicillins Immunizations Given this Hospitalization: Immunization History Administered Date(s) Administered Influenza (Novel S3V7-06) Injectable 02/25/2009 Influenza Trivalent w/Preservative 04/25/2011 Influenza [...] for 6 weeks Your Inpatient Doctor(s) at [facility]: Paola Carrington and Danita General Instructions None Future Appointments and Orders Future Appointments and Orders Future Appointments Provider Department Dept Phone 11/30/2023 12:50 PM [facility] IR ROOM 4 Radiology at [facility] Arrive at: [facility] [phone] Please expect a call from a radiology nurse within 3 days of your exam, you will need to follow theinstructions given at that time. Future Orders Complete By Expires IR Drain Check/Change/Remove [[id number] Custom] 11/30/2023 (Approximate) 05/31/2024 Process Instructions: Scheduling Instructions: Comments: Questions: Where will study be performed?: [facility] Radiology To be scheduled: Next available after [...] Recommendation for Post Discharge IV Antibiotic Management [ANP569 CPT(R)] As directed Process Instructions: If no progress note charted, please enter Clinical details in comments. Scheduling Instructions: Comments: - If this order was signed greater than 72 hours prior to [facility] discharge, please call to confirm the accuracy of this order. Please Fax all results to: OPAT Program Infectious Disease Section [facility] [place], [place] [address] FAX: - After hours, please contact the Infectious Disease Physician clearing distribution clerk at . - Line care instructions - see flush/heparin orders. Facilities may follow organizational policies/practices regarding heparin. - custodial for medication administration/supervisor machining and catheter care/maintenance authorized. - CVC/PICC Dressing Change weekly and PRN Please use CHG or Bio Patch RN: Please care for PICC line including dressing changes weekly and prn. Please draw labs every Thursday and PRN and fax results to OPAT at [phone]. Please draw labs off PICC line. [facility]. Please RN visit for IV ABX teaching and ongoing assessment. Long Term for Medication Administration/Hookup and catheter care/maintenance: - Teach Patient/Caregiver goals/self-monitoring/therapy administration to independence per the Nursing Care Plan. - custodial visit frequency; initial, weekly and 2 PRN visits for complications and/or issueswith therapy for the duration of therapy. - Insert/maintain/replace/remove vascular access device as needed when clinically appropriate and per the Nursing Care Plan. 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 [address] [place] [address] (home) [phone] (work) Date of : 1995 Inpatient DOCUMENTATION FOR VNA SERVICES (INCLUDING THOSE PATIENTS WITH MEDICARE COVERAGE REQUIRING HOME VNA SERVICES AND/OR HOSPICE SERVICES) PATIENT'S LOCATION: Tana Cavazos [address] [facility] [address] (home) Cell: Telephone Information: Linoleum Floor Installer's Name: Fannie Villarreal (Guardian) [phone] (M) In discussion with the attending physician, it is certified that this patient is under their care and that they, or a Nurse Practitioner, Clinical Nurse specialist or Physician [employer] who is working directly with them, had [...] routine PICC care) HOME HEALTH CARE AGENCY: [facility] [employer]. [address] [place] [id number] START OF CARE: within 24-48 hours of discharge Questions: Disciplines Requested: Nursing Recurring Lab Work Interval Expires CBC (with Diff) [[id number] Custom] Once a week until 01/03/2024 01/03/2024 Process Instructions: Scheduling Instructions: Comments: To be Drawn on Thursday. Please fax orders to [facility] ID at [phone]. Questions: Comprehensive metabolic panel (non-fasting) [LAB17 Custom] Once a week until 01/03/2024 01/03/2024 Process Instructions: Scheduling Instructions: Comments: To be Drawn on Thursday. Please fax orders to [facility] ID at [phone]. Questions: CRP, acute inflammation [[id number] Custom] Once a week until 01/03/2024 01/03/2024 Process Instructions: Scheduling Instructions: Comments: To be Drawn on Thursday. Please fax orders to [facility] ID at [phone]. Questions: Discharge References/Attachments None documented in this [...] for 6 weeks Your Inpatient Doctor(s) at [facility]: Paola Carrington and Danita documented in this encounter Medications at Time of Discharge Medication Sig Dispensed Refills Start Date End Date bisacodyL (Dulcolax) [address] 10 [...] 10 mg by mouth 3 times daily. cefTRIAXone (Rocephin) 1 gram injection solutionIndications:S diana [...] repeat x1 per occlusion 1 each 11/02/2023 documented as of this encounter Progress Notes [...] spent >30 minutes (Day of Discharge Code 31476) involved in the final examination of the [...] minimumof two midnights or is on the [facility] inpatient only procedure list (status C) due [...] 0448 CK 14 29 Recent Labs 11/02/23 05 GLUCOSE 109 Micro: No results found for: [...] 10/28/2023 9:50 PM) Result Value WORKSTATION ID [id number] Impression Focal heterogeneous organizing collection at the [...] who have questions please contact the health managed care provider that requested your imaging first. Abdomen 1 view (Generic) (Exam End: 11/01/2023 10:14 PM) Result Value WORKSTATION ID [id number] Impression 1. Rectal distention with stool. 2. No evidence of obstruction. 3. Bony demineralization, LEFT hip dysplasia, Mcnair rods, severe scoliosis Thank you for letting us participate in the care of this patient. If you are a health care provider and have any questions regarding this report, please contact the number below. For patients who have questions please contact the health managed care provider that requested your imaging first. Electronically signed by: Marisela Estrella MD, [facility] ([phone]), at 11/02/2023 8:47 AM ECG: No results [...] and washout with complex plastics closure at [facility] in [place] on 02/11, after which [...] which she should likely transition back to [facility] suppression with TMP-SMX. Recommendations: - Stop daptomycin - Continue IV ceftriaxone 2g daily for a total of 6 weeks, ending on 12/11/2023 - After finishing above, should transition back to [facility] suppression with TMP-SMX - Cleared from ID perspective for PICC placement - Check CBC w/ diff, CMP, and CRP weekly to monitor for clinical progression and antimicrobial toxicity - We will arrange ID follow-up appointment prior to completion of IV ceftriaxone I spent a total of 50 minutes on the bwom-wu-jqnp encounter, chart review, documentation, and coordination of [...] Rosen MD - 11/01/2023 11:54 AM EDT Hospital Medicine Attending Daily Progress [...] minimumof two midnights or is on the [facility] inpatient only procedure list (status C) due [...] 10/28/2023 9:50 PM) Result Value WORKSTATION ID [id number] Impression Focal heterogeneous organizing collection at the [...] who have questions please contact the health managed care provider that requested your imaging first. : No [...] minimumof two midnights or is on the [facility] inpatient only procedure list (status C) due [...] 432* 477* Recent Labs 10/31/2344610/30/238 10/29/23 0837 10/29/23 0208 NA 140 136 140 [...] 10/28/2023 9:50 PM) Result Value WORKSTATION ID [id number] Impression Focal heterogeneous organizing collection at the [...] who have questions please contact the health managed care provider that requested your imaging first. : No [...] check follow up in 4 weeks ordered, voice data communications engineer updated. Willis Calero DO, MBA Interventional Radiology 10/31/2023 [id number] * Dimple Jimenez RN - 10/30/2023 3:33 PM EDT Called report to EUNICE Kevin at [phone] * Dimple Jimenez RN - 10/30/2023 3:04 PM EDT [facility] Name: Tana Cavazos Date of : 1995 AGE: 28 y.o. Address: [address] [place] [phone] (home) [phone] (work) Mobile: Telephone Information: Referring Provider: None [...] [Transparent Dressings] Itching and Dermatitis Please use [id number] Cyclobenzaprine Other Reaction(s): Not available Doxycycline Other [...] minimumof two midnights or is on the [facility] inpatient only procedure list (status C) due [...] melatonin, acetaminophen Labs Reviewed: Recent Labs 10/30/2344710/29/23 0810/28/23 2100 WBC 6.9 8.6 8.7 HGB 11.3* 11.2* 11.9 HCT 34.8* 33.8* 36.5 PLATELET 432* 477* 525* Recent Labs 10/30/2344710/29/23 0810/29/23 0208 10/28/23 2100 NA 136 140 -- [...] 10/28/2023 9:50 PM) Result Value WORKSTATION ID [id number] Impression Focal heterogeneous organizing collection at the [...] who have questions please contact the health managed care provider that requested your imaging first. : No results found for: DIAGLINE, QTCCALC * Kristina Rodriguez RN - 10/30/2023 9:26 AM EDT IR for drain placement today for a paraspinal fluid collection; then ID will need to be consulted for results and to decide on OPAT They have requested referrals to: [address] or Note routed to a Final Tester who will communicate referrals to facilities and [...] minimumof two midnights or is on the [facility] inpatient only procedure list (status C) due [...] 10/28/2023 9:50 PM) Result Value WORKSTATION ID [id number] Impression Focal heterogeneous organizing collection at the [...] who have questions please contact the health managed care provider that requested your imaging first. : No [...] Procedure Request: Interventional Radiology Service contacted by [facility] at 12:15 PM regarding the [...] (bilateral); Reconstruc Hip Socket, Resec Fem Head (79741) (08/15/2010); Apply Of Hip Casts, Two Legs (40364) (08/15/2010); Removal Deep Implant (86049) (08/15/2010); Osteotomy Femur Shaft/Supracondy (41404) (2010); Remove Spinal Canal Catheter (34333) (N/A, 05/11/2014); Remove Infusn Device/Pump (89442) (N/A, 05/11/2014); I&D, Post Spine, Lumb/Sacr/Lumbosac (11269) (N/A, 05/20/2014); Repr, Dural/Csf Leak, Not Req Laminectomy (22863) (N/A, 05/20/2014); I&D, Post Spine, Lumb/Sacr/Lumbosac (22413) (N/A, 05/26/2014); Impact Tooth Remov Comp Bony (D7240) (N/A, 06/14/2018); Rem Imp Tooth W Mucoper Flp (D7210) (N/A, 06/14/2018); IR All Drainage Procedures (06/25/2022); IR Drain Check/Change/Remove (07/01/2022); IR All Drainage Procedures (07/04/2022); IR All Drainage Procedures (07/24/2022); IR Drain Check/Change/Remove (08/11/2022); IR Drain Check/Change/Remove (08/25/2022); IR Drain Check/Change/Remove (09/10/2022); IR All Drainage Procedures (09/26/2022); and Colonoscopy, Biopsy (24123) (N/A, 08/05/2023). Medications: Current Outpatient Medications Medication [...] Interventional & Diagnostic Radiology IR Team Pager: [phone] Personal Pager [phone] 10/29/2023 * Sharron Winters MD - 10/29/2023 [...] antibiotics until they were stopped in August. aFnnie noticed recurrent redness and warmth in Tana's lower back, and Tana developed a fever up to 100.3??F. Lab tests at a nearby hospital showed elevated inflammatory markers. Tana was then brought to [facility], where she has been receiving her medical [...] All Drainage Procedures 06/25/2022 Mich Martino MD [facility] INTERVENTIONL RAD IR ALL DRAINAGE PROCEDURES 07/04/2022 IR All Drainage Procedures 07/04/2022 Mich Martino MD [facility] INTERVENTIONL RAD IR ALL DRAINAGE PROCEDURES 07/24/2022 IR All Drainage Procedures 07/24/2022 Anurag Kumar MD [facility] INTERVENTIONL RAD IR ALL DRAINAGE PROCEDURES 09/26/2022 IR All Drainage Procedures 09/26/2022 Jamaal Jenkins, DO [facility] INTERVENTIONL RAD IR DRAIN CHECK/CHANGE/REMOVE 07/01/2022 IR Drain Check/Change/Remove 07/01/2022 Jamaal Jenkins, DO [facility] INTERVENTIONL RAD IR DRAIN CHECK/CHANGE/REMOVE 08/11/2022 IR Drain Check/Change/Remove 08/11/2022 Piter Self MD [facility] INTERVENTIONL RAD IR DRAIN CHECK/CHANGE/REMOVE 08/25/2022 IR Drain Check/Change/Remove 08/25/2022 Jamaal Jenkins, [facility] INTERVENTIONL RAD IR DRAIN CHECK/CHANGE/REMOVE 09/10/2022 IR Drain Check/Change/Remove 09/10/2022 Mich Martino MD [facility] INTERVENTIONL RAD PRO APPLY OF HIP CASTS, TWO LEGS 08/15/2010 CAST APPLICATION, HIP SPICA, BOTH LEGS performed by BARRERA OLIVER at [facility] MAIN OR PRO COLONOSCOPY, BIOPSY N/A 08/05/2023 COLONOSCOPY FLEXIBLE, WITH BX (WRVU 3.56) performed by Jamar Gastelum MD at [facility] ENDOSCOPY PRO I&D, POST SPINE, LUMB/SACR/LUMBOSAC N/A 05/20/2014 @I & D, OPEN, DEEP ABSCESS, LUMBAR, SACRAL, LUMBOSACRAL performed by Freddy Isbell MD at [facility] MAIN OR PRO I&D, POST SPINE, LUMB/SACR/LUMBOSAC N/A 05/26/2014 @I & D, OPEN, DEEP ABSCESS, LUMBAR, SACRAL, LUMBOSACRAL performed by Freddy Isbell MD at [facility] MAIN OR PRO IMPACT TOOTH REMOV COMP BONY N/A 06/14/2018 SURGICAL EXTRACTIONS, REMOVAL OF IMPACTED TOOTH, COMPLETELY BONY (WRVU 1.93) performed by Keith Cotton MD at [facility] OSC PRO OSTEOTOMY FEMUR SHAFT/SUPRACONDY 08/15/2010 ??OSTEOTOMY, FEMUR SHAFT OR SUPRACONDYLAR W/O FIXATION performed by BARRERA OLIVER at [facility] MAIN OR PRO RECONSTRUC HIP SOCKET, RESEC FEM HEAD 08/15/2010 ??ACETABULOPLASTY (GIRDLESTONE), RESECTION FEMORAL HEAD, BILATERAL performed by BARRERA OLIVER [facility] MAIN OR PRO REMOVAL DEEP IMPLANT 08/15/2010 REMOVAL IMPLANT, DEEP, BRUNO performed by BARRERA OLIVER at [facility] MAIN OR PRO REMOVAL ERUPTED TOOTH WITH ELEVATION OF MUCOPERIOSTEAL FLAP N/A 06/14/2018 SURGICAL EXTRACTIONS REQUIRING ELEVATION OF MUCOPERIOSTEAL FLAP AND REMOVAL OF BONE OR SECTION OF TOOTH (WRVU 1.09) performed by Keith Cotton MD at [facility] OSC PRO REMOVE INFUSN DEVICE/PUMP N/A 05/11/2014 REMOVAL OF SPINE INFUSION PUMP performed by Jamaal Samuel MD at [facility] MAIN OR PRO REMOVE SPINAL CANAL CATHETER N/A 05/11/2014 REMOVAL OF INTRATHECAL OR EPIDURAL CATHETER performed by Jamaal Samuel MD at [facility] MAIN OR PRO REPR, DURAL/CSF LEAK, NOT REQ LAMINECTOMY N/A 05/20/2014 @REPAIR DURAL\CSF LEAK,NOT REQUIRING LAMINECTOMY performed by Freddy Isbell MD at [facility] MAIN OR Prior To Admission Medications: (Not in a hospital admission) Allergies: Allergies Allergen Reactions Fluoxetine Other (See Comments) HIVES, HEART RACES Tegaderm [Transparent Dressings] Itching and Dermatitis Please use [id number] Cyclobenzaprine Other Reaction(s): Not available Doxycycline Other [...] Resource Strain: Low Risk (02/21/2023) Received from [facility] Overall Financial Resource Strain (CARDIA) Difficulty of Paying Living Expenses: Not very hard Food Insecurity: Unknown (02/21/2023) Received from [facility] Hunger Vital Sign Worried About Running Out of Food in the Last Year: Never true Ran Out of Food in the Last Year: Not on file Transportation Needs: No Transportation Needs (02/21/2023) Received from [facility] PRAPARE - Transportation Lack of Transportation (Medical): No Lack of Transportation (Non-Medical): No Physical Activity: Not on file Intimate Partner Violence: Unknown (02/21/2023) Received from [facility] Humiliation, Afraid, Rape, and Kick questionnaire Fear of Current or Ex-Partner: No Emotionally Abused: Not on file Physically Abused: Not on file Sexually Abused: Not on file Housing Stability: Unknown (02/21/2023) Received from [facility] Housing Stability Vital Sign Unable to Pay for Housing in the Last Year: Not on file Number of Places Lived in the Last Year: Not on file Unstable Housing in the Last Year: No Immunizations: Immunization History Administered Date(s) Administered Influenza (Novel X6W2-57) Injectable 02/25/2009 Influenza Trivalent w/Preservative 04/25/2011 Influenza [...] Regular diet DVT Prophylaxis: LMWH Anticipated Disposition: nutrition intern care facility Code Status: Attempt Cardiopulmonary Resuscitation - Inpatient A copy of this document will be sent to the patient's Primary Care Physician and/or Referring Physician. Sharron Winters MD 10/29/2023 documented in this encounter Procedure Notes * Margie Bucio RN - 11/03/2023 11:28 AM EDTAssociated Order(s): PLACE [...] to the planned procedure. Hand Hygiene: The band bias machine operator did perform hand hygiene prior to line insertion. Catheter type: PICC Lot number: [id number] Procedure Technique: Skin was prepped with chlorhexidine. [...] outpatient blood draw. Patient was referred to [facility] by infectious disease for a CT of [...] nursing note reviewed. Exam conducted with a special events manager present. HENT: Head: Normocephalic and atraumatic. Cardiovascular: [...] who have questions please contact the health managed care provider that requested your imaging first. Procedures Assessment [...] fluid collection treated as likely infections on [facility] antibiotics currently Bactrim presenting with about 5 [...] for assistance with IV placement. * Esteban Kign APRN - 10/28/2023 7:57 PM EDT Patient Name: Tana Cavazos Patient : 1995 Encounter Date: 10/28/2023 Brief Provider Triage Note 28 y.o. female presents to the emergency department with prior back surgery, complicated by abscessrequiring surgery. Initially surgery believed to be at [facility]. Was on antibiotics until a month [...] from the original note were not included. [facility] [place] [address] [facility] Vascular Access Service Peripherally Inserted Central Catheter (PICC) Teaching Sheet Peripherally inserted central catheters (auls-fr-ntij) (PICC) are used when you need IV [...] midline catheter? PICC lines are used for [facility] treatments. PICC lines may be used for [...] can be set up via the nurse Meteorological Aide to help you. What are possible complications [...] Efficacy, Safety, Use, and Administration of [employer], [employer] 2005 * Plan of Care - Arielle Patino, RN - 11/03/2023 3:34 AM EDT OUTCOME EVALUATION NOTE: OUTCOME SUMMARY: Pt tachy. MD alerted. Otherwise VSS on RA. Pt nonverbal. Unable to answer orientation questions. Program Evaluation Consultant at bedside. 1x BM this shift. CARMELLA [...] infusion. Please page the PICC room at [phone] or call [phone] between the hours of 7:00am and 5:30pm Thursday-Thursday for PICC line placement/scheduling. After hours the Vascular Access Service can be reached at anytime on pager [phone] PICCrequests for the following day. [...] Home Health Services: Registered Nurse Agency Referrals: [facility] [address] [place] [address] or Transportation: family or friend will provide Plan going forward: Care Management will continue to follow and assist with discharge planning and coordination of care as indicated. Anticipated Date of Discharge: 11/06/2023 Kristina Rodriguez RN BSN kiosk sales representative [phone] * Plan of Care - Areille Patino RN - 11/02/2023 5:29 AM EDT OUTCOME EVALUATION NOTE: OUTCOME SUMMARY: Pt VSS on RA. Pt nonverbal. Unable to answer orientation questions. Moans and frowns when in pain. Pain medication given per JUN. Program Evaluation Consultant at bedside. 1x BM this shift. CARMELLA [...] - Initial Consultation ID: Tana Cavazos Room: [address] [place], [place] [address]A Consulting Service: Hospital Medicine Consulting Attending: Rebel Carrington MD Admission Date: 10/28/2023 Reason for Consult: Recurrent spinal infection HPI: Tana Cavazos is a 28 y.o. female with Hx of cerebral palsy w/ spastic quadriplegia, non-verbal at baseline, as well as prior posterolateral spinal fusion in 2008 and bilateral Girdlestones in 2010, who was admitted to [facility] in May 2022 for redness and tenderness [...] site, for which she was readmitted to [facility] on 07/22 to manage this issue. On arrival to [facility], she was afebrile without leukocytosis. Repeat of [...] evaluated by spine surgery multiple times at [facility] and was not deemeda candidate for operative intervention. Then, she was seen at [facility] for a second surgical opinion. On 08/27/2022, superficialCxs there revealed growth of Staph hemolyticus and capitis. She was initially continued on doxycycline for this but subsequently switched to TMP-SMX in early September 2022 given ?possible allergic reaction. She also did undergo re-insertion of IR drains on 09/26, with Cxs again returning negative. Eventually, she got a third surgical opinion at [facility] in [place] given the need for [...] continued to follow in ID clinic at [facility]. We discussed the equipoise as to whether [...] [Transparent Dressings] Itching and Dermatitis Please use [id number] Cyclobenzaprine Other Reaction(s): Not available Doxycycline Other [...] not lower extremities spontaneously Laboratory: Recent Labs 10/31/237 10/30/238 10/29/23 0837 WBC 5.2 6.9 8.6 HGB 11.1* 11.3* 11.2* HCT 33.8* 34.8* 33.8* PLATELET 488* 432* 477* Recent Labs 10/31/237 10/30/238 10/29/23 0837 NA 140 136 140 K 3.8 4.1 4.2 CL 106 102 103 CO2 23 26 BUN 8 7* 6* CREATININE [...] and washout with complex plastics closure at [facility] on 02/11, after which she was treated [...] a total of 80 minutes on the [id number] encounter, chart review, documentation, and coordination of [...] Appropriate) * Consult Note - Kelly Cummings, [facility] - 10/30/2023 4:10 PM EDT Adden: The [...] have. Alternately, during off-hours you may call [phone] to contact a pharmacist. [facility] Pharmacokinetics Note Drug: Vancomycin Pharmacokinetic target: AUC24 (range) 400-600 mg/L.hr Tana Cavazos is a(n) 28 years old female initiating Vancomycin for paraspinal infection, concern forosteo Recent measured serum creatinine values: 10/30/2023 04:48 0.33 mg/dL 10/29/2023 08:37 0.31 mg/dL 10/28/2023 21:00 0.25 mg/dL Assessment: Analysis using PT PALRX gives the following patient-specific pharmacokinetic parameters: CL: [...] or the wound care team at [phone] with skin and wound care concerns or [...] Alicja Franklin RN - 10/29/2023 9:08 AM EDTSummary: [place] Initial Assessment Office of Care Management [...] inflammatory markers. Tana was then brought to [facility], where she has been receiving her medical [...] were you homeless or living in a custodial (including now)?: No In the past 12 months has the [employer], gas, oil, or water [employer] threatened to shut off services in your [...] hospital bed Home Address confirmed as: [address] [facility] [address] Social & Family Supports: All names listed below confirmed with patient as current and correct Extended Emergency Contact Information Primary Emergency Contact: PhilFannie [place], [place] [id number] [place] [address] of [place] Mobile Relation: Guardianship Secondary Emergency Contact: Fernanda Sorensen Mobile Relation: Paid Caregiver Mother: Anderson Thorpe Address: [address] [address] [facility] Home Phone: [phone] Mobile Current Care Provided by: other (see comments) Provides Primary Care For: no one, unable/limited ability to care for self Caregiver if needed: other (see comments) (Fannie and Fernanda) Quality of Family relationships: helpful, supportive, involved Community Resources being provided currently: homecare agency ([facility] for blood draws.) Behavioral Health History: [...] Insurance: N/A Prescription Coverage: Yes Preferred Pharmacy: [facility] Home Delivery - [place], [place] - [address] [facility] [address] [facility] [address] [facility] [address] [place] [id number] Status: Patient is a : No Primary Care Provider confirmed: Lorna Bal APRN [phone] Patient/Caregiver Goals of Treatment: Fannie anticipates pt to return home upon discharge. Potential Needs for Transition of Care: home health care Agency Referrals: I have met with the client account representative to: discuss discharge planning needs. provide the [facility], Office of Care Management letter from the [employer] pertaining to rehab referrals. provide a letter describing our affiliations within the [facility] and educate about their right to choose where referrals are sent. provide a list of Home Health Agencies / Durable Medical Equipment vendors which serve their preferred geographic area. provided patient with [facility] Star Quality Rating handout. They have requested referrals to: [facility] [address] [place] [address] Note routed to a Final Tester who will communicate referrals to facilities and [...] care as indicated. Alicja Franklin RN, BSN, ACM-ARTIFICIAL BREEDING RANCH SUPERVISORethylene plant helper Office of Care Management Pager: [phone] * Consult Note - Zach Pierre RPH - 10/29/2023 3:01 AM EDT TelePharmacy Home Medication List Update for Medication Reconciliation 10/29/23 3:01 AM Tana Cavazos 1995 Allergies Allergen Reactions Fluoxetine Other (See Comments) HIVES, HEART RACES Tegaderm [Transparent Dressings] Itching and Dermatitis Please use [id number] Cyclobenzaprine Other Reaction(s): Not available Doxycycline Other (See Comments) Cough, rash Penicillins Person Interviewed: [facility] Quality of Interview/accuracy of medication list: excellent Sources used to compile medication list: [] Epic medication list [] SureScripts/Dispense Report [] PCP/Specialist list [x] Retail pharmacy [] Patient list [] MAR [] Other Changes made to home medication list: Additions: Bisacodyl prn Deletions: Nystatin, Probiotic, Vitamin, Psyllium Changes: None Additional Notes: [facility] Medication List Recommended changes: None The home [...] the patient underwent a revision surgery in [place], [place] that involved removal of a R [...] All Drainage Procedures 06/25/2022 Mich Martino MD [facility] INTERVENTIONL RAD IR ALL DRAINAGE PROCEDURES 07/04/2022 IR All Drainage Procedures 07/04/2022 Mich Martino MD [facility] RAD IR ALL DRAINAGE PROCEDURES 07/24/2022 IR All Drainage Procedures 07/24/2022 Anurag Kumar MD [facility] INTERVENTION[facility] RAD IR ALL DRAINAGE PROCEDURES 09/26/2022 IR All Drainage Procedures 09/26/2022 Jamaal Jenkins, DO [facility] INTERVENTIONL RAD IR DRAIN CHECK/CHANGE/REMOVE 07/01/2022 IR Drain Check/Change/Remove 07/01/2022 Jamaal Jenkins, DO [facility] INTERVENTION[facility] RAD IR DRAIN CHECK/CHANGE/REMOVE 08/11/2022 IR Drain Check/Change/Remove 08/11/2022 Piter Self MD [facility] INTERVENTIONL RAD IR DRAIN CHECK/CHANGE/REMOVE 08/25/2022 IR Drain Check/Change/Remove 08/25/2022 Jamaal Jenkins, DO [facility] INTERVENTIONL RAD IR DRAIN CHECK/CHANGE/REMOVE 09/10/2022 IR Drain Check/Change/Remove 09/10/2022 Mich Martino MD [facility] INTERVENTIONL RAD PRO APPLY OF HIP CASTS, TWO LEGS 08/15/2010 CAST APPLICATION, HIP SPICA, BOTH LEGS performed by BARRERA OLIVER at [facility] MAIN OR PRO COLONOSCOPY, BIOPSY N/A 08/05/2023 COLONOSCOPY FLEXIBLE, WITH BX (WRVU 3.56) performed by Jamar Gastelum MD at [facility] ENDOSCOPY PRO I&D, POST SPINE, LUMB/SACR/LUMBOSAC N/A 05/20/2014 @I & D, OPEN, DEEP ABSCESS, LUMBAR, SACRAL, LUMBOSACRAL performed by Freddy Isbell MD at [facility] MAIN OR PRO I&D, POST SPINE, LUMB/SACR/LUMBOSAC N/A 05/26/2014 @I & D, OPEN, DEEP ABSCESS, LUMBAR, SACRAL, LUMBOSACRAL performed by Freddy Isbell MD at [facility] MAIN OR PRO IMPACT TOOTH REMOV COMP BONY N/A 06/14/2018 SURGICAL EXTRACTIONS, REMOVAL OF IMPACTED TOOTH, COMPLETELY BONY (WRVU 1.93) performed by Keith Cotton MD at [facility] OSC PRO OSTEOTOMY FEMUR SHAFT/SUPRACONDY 08/15/2010 ??OSTEOTOMY, FEMUR SHAFT OR SUPRACONDYLAR W/O FIXATION performed by BARRERA OLVIER at [facility] MAIN OR PRO RECONSTRUC HIP SOCKET, RESEC FEM HEAD 08/15/2010 ??ACETABULOPLASTY (GIRDLESTONE), RESECTION FEMORAL HEAD, BILATERAL performed by BARRERA OLIVER [facility] MAIN OR PRO REMOVAL DEEP IMPLANT 08/15/2010 REMOVAL IMPLANT, DEEP, BRUNO performed by BARRERA OLIVER at [facility] MAIN OR PRO REMOVAL ERUPTED TOOTH WITH ELEVATION OF MUCOPERIOSTEAL FLAP N/A 06/14/2018 SURGICAL EXTRACTIONS REQUIRING ELEVATION OF MUCOPERIOSTEAL FLAP AND REMOVAL OF BONE OR SECTION OF TOOTH (WRVU 1.09) performed by Keith Cotton MD at [facility] OSC PRO REMOVE INFUSN DEVICE/PUMP N/A 05/11/2014 REMOVAL OF SPINE INFUSION PUMP performed by Jamaal Saumel MD at [facility] MAIN OR PRO REMOVE SPINAL CANAL CATHETER N/A 05/11/2014 REMOVAL OF INTRATHECAL OR EPIDURAL CATHETER performed by Jamaal Samuel MD at [facility] MAIN OR PRO REPR, DURAL/CSF LEAK, NOT REQ LAMINECTOMY N/A 05/20/2014 @REPAIR DURAL\CSF LEAK,NOT REQUIRING LAMINECTOMY performed by Freddy Isbell MD at [facility] MAIN OR Home Medications: (Not in a hospital admission) Allergies: Allergies Allergen Reactions Fluoxetine Other (See Comments) HIVES, HEART RACES Tegaderm [Transparent Dressings] Itching and Dermatitis Please use [id number] Cyclobenzaprine Other Reaction(s): Not available Doxycycline Other [...] course. James Swanson IV, DO Orthopaedic Surgery, [id number] ADDENDUM: Case reviewed with Dr. Galvan. Plan [...] she had I+D with hardware exchange at [facility] last year. She was doing well until [...] EDT TH Visit (TeleHealth) [place] [address] Lilli Joy APRN [facility] [place] [address] 12/03/2023 12:30 PM EDT Office Visit Infectious Disease at [place] [phone] Hollie Ambriz MD [facility] [place] [address] 12/03/2023 2:30 PM EDT Hospital [place] [address] Andrade Melvin MD [facility] [place] [address] Scheduled Orders Name Type Priority Associated Diagnoses [...] Place PICC Line: Contact Vascular Access Page [phone] Extremity to exclude: No restrictions; Is PICC [...] to the planned procedure. Hand Hygiene: The band bias machine operator did perform hand hygiene prior to line insertion. Catheter type: PICC Lot number: [id number] Procedure Technique: Skin was prepped with chlorhexidine. [...] Guidance (IV Team) (11/03/2023 11:19 AM EDT) [facility] WORKSTATION ID [id number] RAD Anatomical Region Laterality Modality N/A Radio [...] who have questions please contact the health managed care provider that requested your imaging first. ? Narrative [...] patients who have questions please contactthe health managed care provider that requested your imaging first. Wally Rosen MD IMG FLUORO ORDERABLE S * Differential, Automated (11/02/2023 5:26 AM EDT) Neutrophils % 69.0 % [facility] Neutr Abs (ANC) 5.16 1.70 - 6.10 x10(3)/[facility] Lymphocytes % 21.7 % [facility] Lymphocytes Abs 1.6 0.9 - 3.2 x10(3)/[facility] Monocytes % 6.8 % [facility] Monocyte Abs 0.5 0.3 - 0.9 x10(3)/[facility] Eosinophils % 1.6 % [facility] Eosinophils Abs 0.1 0.0 - 0.4 x10(3)/[facility] Basophils % 0.5 % [facility] Basophils Abs 0.0 0.0 - 0.1 x10(3)/[facility] Immature Gran % 0.40 % [facility] Comment: Immature granulocytes(IG's)percentage and absolute count will include metamyelocytes, myelocytes, and promyelocytes. Blood smears from CBCs yielding IG's will be scanned manually for concordance. If this scan disagrees with the automated IG or if promyelocytes are noted, a manual differential will be performed. Debora Gran Abs 0.03 0.00 - 0.04 x10(3)/[facility] Blood 11/02/2023 5:26 AM EDT 11/02/2023 5:43 AM EDT Narrative Resulting Agency Comment Spec In Lab Wally Rosen MD HEMATOLOGY ORDERABLE S [facility] [place] [address] * (ABNORMAL) Hemogram (11/02/2023 5:26 AM EDT) WBC 7.5 4.0 - 9.5 x10(3)/[facility] RBC 3.89(L) 4.00 - 5.21 x10(6)/[facility] Hemoglobin 11.1(L) 11.7 - 15.5 g/dL [facility] Hematocrit 33.8(L) 35.7 - 45.8 % [facility] MCV 86.9 82.6 - 94.4 fL [facility] MCH 28.5 27.1 - 32.0 pg [facility] MCHC 32.8 31.7 - 35.0 g/dL [facility] Platelets 477(H) 145 - 357 x10(3)/[facility] RDWSD 45.1 37.0 - 46.0 [facility] RDWCV 14.3(H) 11.5 - 14.1 % [facility] MPV 9.1 7.6 - 12.9 [facility] nRBC % Auto 0.0 % [facility] nRBC Abs Auto 0.000 0.000 - 0.000 x10(3)/mcL [facility] Blood 11/02/2023 5:26 AM EDT 11/02/2023 5:43 AM EDT Narrative Resulting Agency Comment Spec In Lab Wally Rosen MD HEMATOLOGY ORDERABLE S Performing Organization Address City/[facility]/ZIP Co de Phone Number [facility] [place] [address] * CK (11/02/2023 5:26 AM EDT) CK, Total 14 0 - 160 unit/L [facility] Blood 11/02/2023 5:26 AM EDT 11/02/2023 5:44 AM EDT Narrative Resulting Agency Comment Spec In Lab Wally Rosen MD CHEMISTRY ORDERABLES Performing Organization Address City/[facility]/ZIP Co de Phone Number [facility] [place] [address] * (ABNORMAL) Comprehensive metabolic panel (non-fasting) (11/02/2023 5:26 AM EDT) [facility] Glucose Lvl 109 65 - 199 mg/dL [facility] Comment:Diabetes: >=200 mg/d L plus symptoms BUN 13 8 - 18 mg/dL [facility] Comment:result rechecked-mg Creatinine 0.27(L) 0.70 - 1.20 mg/dL [facility] Sodium 138 135 - 145 mmol/L [facility] Potassium 3.9 3.5 - 5.0 mmol/L [facility] Comment: Please note: ??Patients with WBC >100,000 may have falsely elevated Potassium levels. ??For accurate Potassium quantification in these patients send serum separator tube (gold top) for subsequent determinations. ??Contact the Clinical Chemistry Laboratory if there are any questions. Chloride 104 98 - 107 mmol/L [facility] CO2 21(L) 22 - 31 mmol/L [facility] Anion Gap 13 5 - 15 mmol/L [facility] Calcium 9.8 8.5 - 10.5 mg/dL [facility] Total Protein 7.2 6.1 - 8.0 g/dL [facility] Albumin 3.5 3.2 - 5.2 g/dL [facility] AST 13 0 - 30 unit/L [facility] ALT 27 0 - 30 unit/L [facility] Alk Phos 209(H) 35 - 105 unit/L [facility] Total Bilirubin <0.2(L) 0.2 - 1.3 mg/dL [facility] [...] In Lab Wally Rosen MD CHEMISTRY ORDERABLES [facility] [place] [address] * (ABNORMAL) CRP, acute inflammation (11/02/2023 5:26 AM EDT) CRP 62.8(H) <=4.9 mg/L [facility] Blood 11/02/2023 5:26 AM EDT 11/02/2023 5:44 AM EDT Narrative Resulting Agency Comment Spec In Lab Wally Rosen MD CHEMISTRY ORDERABLES [facility] [place] [address] * XR Abdomen 1 view (Generic) (11/01/2023 10:14 PM EDT) WORKSTATION ID [id number] RAD Anatomical Region Laterality Modality Abdomen N/A [...] who have questions please contact the health managed care provider that requested your imaging first. ? Electronically signed by: Marisela Estrella MD, [facility] ([phone]), at 11/02/2023 8:47 AM Narrative 11/02/2023 8:47 [...] patients who have questions please contactthe health managed care provider that requested your imaging first. Electronically signed by: Marisela Estrella MD, [facility]([phone]), at 11/02/2023 8:47 AM Mindy Da Silva SALT MACHINE OPERATOR IMG DX ORDERABLES * MRSA PCR Screen ([facility]/CGP/APD/NLH) (10/31/2023 6:10 PM EDT) [facility] MRSA Result Negative Negative [facility] MRSA Interp Methicillin-resist ant Staphylococcus aureus (MRSA) is NOT DETECTED The MRSA target DNA sequences (mec and SCC) were not detected within the acceptable ranges using the Xpert MRSA NxG on the GeneXpert Dx System (Level). This suggests the absence of MRSA in the patient specimen submitted for testing. This test is cleared by the U.S. Food and Drug Administration for clinical use and its performance characteristics have been verified by the [facility] Gen[facility] at [facility]. This result does not rule out the presence of any other organisms. Rare false negative results may occur if MRSA is present at low concentrations with much higher concentrations of other organisms including MRSE or S. aureus with an empty SCC cassette. [facility] Comment: [VERIFIED DATE]11.01.23 Verified By:Marisela Jolly (Electronic Signature) Nasopharyngeal Swab 10/31/19 6:10 PM EDT 11/01/2023 8:24 AM EDT Comment:Specimen Type->Nasop haryngeal Swab Narrative Resulting Agency Comment Spec In Lab Wally Rosen MD MICROBIOLOGY - GENER AL ORDERABLES [facility] [place] [address] * Differential, Automated (10/31/2023 4:47 AM EDT) Neutrophils % 56.2 % [facility] Neutr Abs (ANC) 2.93 1.70 - 6.10 x10(3)/[facility] Lymphocytes % 32.1 % [facility] Lymphocytes Abs 1.7 0.9 - 3.2 x10(3)/[facility] Monocytes % 9.0 % [facility] Monocyte Abs 0.5 0.3 - 0.9 x10(3)/[facility] Eosinophils % 1.7 % [facility] Eosinophils Abs 0.1 0.0 - 0.4 x10(3)/[facility] Basophils % 0.8 % [facility] Basophils Abs 0.0 0.0 - 0.1 x10(3)/[facility] Immature Gran % 0.20 % [facility] Comment: Immature granulocytes(IG's)percentage and absolute count will include metamyelocytes, myelocytes, and promyelocytes. Blood smears from CBCs yielding IG's will be scanned manually for concordance. If this scan disagrees with the automated IG or if promyelocytes are noted, a manual differential will be performed. Debora Gran Abs 0.01 0.00 - 0.04 x10(3)/[facility] Blood 10/31/2023 4:47 AM EDT 10/31/2023 4:55 AM EDT Narrative Resulting Agency Comment Spec In Lab Sharron Winters MD HEMATOLOGY ORDERABLE S [facility] [place] [address] * (ABNORMAL) Hemogram (10/31/2023 4:47 AM EDT) WBC 5.2 4.0 - 9.5 x10(3)/[facility] RBC 3.89(L) 4.00 - 5.21 x10(6)/[facility] Hemoglobin 11.1(L) 11.7 - 15.5 g/dL [facility] Hematocrit 33.8(L) 35.7 - 45.8 % [facility] MCV 86.9 82.6 - 94.4 fL [facility] MCH 28.5 27.1 - 32.0 pg [facility] MCHC 32.8 31.7 - 35.0 g/dL [facility] Platelets 488(H) 145 - 357 x10(3)/[facility] RDWSD 45.6 37.0 - 46.0 [facility] RDWCV 14.3(H) 11.5 - 14.1 % [facility] MPV 9.0 7.6 - 12.9 fL [facility] nRBC % Auto 0.0 % [facility] nRBC Abs Auto 0.000 0.000 - 0.000 x10(3)/[facility] Blood 10/31/2023 4:47 AM EDT 10/31/2023 4:55 AM EDT Narrative Resulting Agency Comment Spec In Lab Sharron Winters MD HEMATOLOGY ORDERABLE S Performing Organization Address City/[facility]/ZIP Co de Phone Number [facility] [place] [address] * (ABNORMAL) CRP, acute inflammation (10/31/2023 4:47 AM EDT) CRP 99.2(H) <=4.9 mg/L [facility] Blood 10/31/2023 4:47 AM EDT 10/31/2023 4:55 AM EDT Narrative Resulting Agency Comment Spec In Lab Sharron Winters MD CHEMISTRY ORDERABLES Performing Organization Address [facility] Co de Phone Number [facility] [place] [address] * (ABNORMAL) Basic Metabolic Panel (non-fasting) (10/31/2023 4:47 AM EDT) Pathologist [facility] Glucose Lvl 120 65 - 199 mg/dL [facility] Comment:Diabetes: >=200 mg/d L plus symptoms BUN 8 8 - 18 mg/dL [facility] Creatinine 0.27(L) 0.70 - 1.20 mg/dL [facility] Sodium 140 135 - 145 mmol/L [facility] Potassium 3.8 3.5 - 5.0 mmol/L [facility] Comment: Please note: ??Patients with WBC >100,000 may have falsely elevated Potassium levels. ??For accurate Potassium quantification in these patients send serum separator tube (gold top) for subsequent determinations. ??Contact the Clinical Chemistry Laboratory if there are any questions. Chloride 106 98 - 107 mmol/L [facility] CO2 23 22 - 31 mmol/L [facility] Anion Gap 11 5 - 15 mmol/L [facility] Calcium 9.2 8.5 - 10.5 mg/dL [facility] Estimated GFR [...] CHEMISTRY ORDERABLES Performing Organization Address [facility] [facility] Co de Phone Number [facility] [place] [address] * (ABNORMAL) Sedimentation rate (10/31/2023 4:47 AM EDT) Sed Rate 113(H) 2 - 37 mm/hr [facility] Comment: Effective April 06, 2019 new capillary photometric technology has resulted in a change in reference ranges. It is recommended that each ESR result be reviewed with its own age appropriate reference range. Blood 10/31/2023 4:47 AM EDT 10/31/2023 4:55 AM EDT Narrative Resulting Agency Comment Spec In Lab Sharron Winters MD HEMATOLOGY ORDERABLE S Performing Organization Address City/[facility] Co de Phone Number [facility] [place] [address] * Magnesium (10/31/2023 4:47 AM EDT) Magnesium 0.86 0.69 - 1.07 mmol/L [facility] Blood 10/31/2023 4:47 AM EDT 10/31/2023 4:55 AM EDT Narrative Resulting Agency Comment Spec In Lab Sharron Winters MD CHEMISTRY ORDERABLES [facility] [place] [address] * IR All Drainage Procedures (10/30/2023 3:23 PM EDT) Anatomical Region Laterality Modality X-Ray Angiograph y Narrative 10/30/2023 3:27 PM EDT Table formatting from the original result was not included. Images from the original result were not included. IR PROCEDURE NOTE Procedure: Paraspinal drain placement. Indication for Procedure: Per Tana Olivera Freddy Cavazos is a 28 y.o. female w/ [...] performed this procedure. ? Sharron Winters MD [facility] IR ORDERABLES * Anaerobic Culture (10/30/2023 3:02 PM EDT) Anaerobic Culture No anaerobic organisms isolated [facility] Fluid 10/30/2023 3:02 PM EDT 10/30/2023 3:47 PM EDT Comment:Infected seroma/absc ess lower mid posterior presacral region. Fluid culture. Narrative Resulting Agency Comment Spec In Lab Andrade Melvin MD MICROBIOLOGY - GENER AL ORDERABLES Performing Organization Address [facility] Co de Phone Number [facility] [place] [address] * Body Fluid Culture, Aerobic (10/30/2023 3:02 PM EDT) Body Fluid Culture Rare mixed bacterial morphotypes suggestive of normal cutaneous zenon [facility] Gram Stain Many Neutrophils seen No microorganisms seen. [facility] Fluid 10/30/2023 3:02 PM EDT 10/30/2023 3:47 PM EDT Comment:Infected seroma/absc ess lower mid posterior presacral region. Fluid culture. Narrative Resulting Agency Comment Spec In Lab Andrade Melvin MD MICROBIOLOGY - GENER AL ORDERABLES [facility] [place] [address] * CK (10/30/2023 4:48 AM EDT) [facility] CK, Total 29 0 - 160 unit/L [facility] Blood Venous Draw / Unknown 10/30/2023 4:48 AM EDT 10/30/2023 5:06 AM EDT Narrative Resulting Agency Comment Spec In Lab Hollie SIMMS CHEMISTRY ORDERABLES [facility] [place] [address] * Differential, Automated (10/30/2023 4:48 AM EDT) [facility] Neutrophils % 67.0 % [facility] Neutr Abs (ANC) 4.61 1.70 - 6.10 x10(3)/[facility] LABORATORY Lymphocytes % 22.3 % [facility] Lymphocytes Abs 1.5 0.9 - 3.2 x10(3)/[facility] LABOR[facility]ORY Monocytes % 8.2 % [facility] Monocyte Abs 0.6 0.3 - 0.9 x10(3)/[facility] LABOR[facility]ORY Eosinophils % 1.6 % [facility] Eosinophils Abs 0.1 0.0 - 0.4 x10(3)/[facility] LABORATORY Basophils % 0.6 % [facility] Basophils Abs 0.0 0.0 - 0.1 x10(3)/[facility] LABOR[facility]ORY Immature Gran % 0.30 % [facility] Comment: Immature granulocytes(IG's)percentage and absolute count will include metamyelocytes, myelocytes, and promyelocytes. Blood smears from CBCs yielding IG's will be scanned manually for concordance. If this scan disagrees with the automated IG or if promyelocytes are noted, a manual differential will be performed. Debora Gran Abs 0.02 0.00 - 0.04 x10(3)/[facility] LABOR[facility]ORY Blood 10/30/2023 4:48 AM EDT 10/30/2023 5:01 AM EDT Narrative Resulting Agency Comment Spec In Lab Sharron Winters MD HEMATOLOGY ORDERABLE S [facility] [place] [address] * (ABNORMAL) Hemogram (10/30/2023 4:48 AM EDT) WBC 6.9 4.0 - 9.5 x10(3)/[facility] LABOR[facility] RBC 3.97(L) 4.00 - 5.21 x10(6)/[facility] Hemoglobin 11.3(L) 11.7 - 15.5 g/dL [facility] Hematocrit 34.8(L) 35.7 - 45.8 % [facility] MCV 87.7 82.6 - 94.4 fL [facility] MCH 28.5 27.1 - 32.0 pg [facility] MCHC 32.5 31.7 - 35.0 g/dL [facility] Platelets 432(H) 145 - 357 x10(3)/[facility] LABORATORY RDWSD 45.6 37.0 - 46.0 [facility] LABORATORY RDWCV 14.3(H) 11.5 - 14.1 % [facility] MPV 9.3 7.6 - 12.9 fL [facility] nRBC % Auto 0.0 % [facility] nRBC Abs Auto 0.000 0.000 - 0.000 x10(3)/[facility] Blood 10/30/2023 4:48 AM EDT 10/30/2023 5:01 AM EDT Narrative Resulting Agency Comment Spec In Lab Sharron Winters MD HEMATOLOGY ORDERABLE S Performing Organization Address City/[facility]/ZIP Co de Phone Number [facility] [place] [address] * (ABNORMAL) CRP, acute inflammation (10/30/2023 4:48 AM EDT) Pathologist [facility] CRP 120.3(H) <=4.9 mg/L [facility] Comment:result rechecked-KS Blood 10/30/2023 4:48 AM EDT 10/30/2023 5:01 AM EDT Narrative Resulting Agency Comment Spec In Lab Sharron Winters MD CHEMISTRY ORDERABLES Performing Organization Address [facility] Co de Phone Number [facility] [place] [address] * (ABNORMAL) Basic Metabolic Panel (non-fasting) (10/30/2023 4:48 AM EDT) Pathologist [facility] Glucose Lvl 113 65 - 199 mg/dL [facility] Comment:Diabetes: >=200 mg/d L plus symptoms BUN 7(L) 8 - 18 mg/dL [facility] Creatinine 0.33(L) 0.70 - 1.20 mg/dL [facility] Sodium 136 135 - 145 mmol/L [facility] Potassium 4.1 3.5 - 5.0 mmol/L [facility] Comment: Please note: ??Patients with WBC >100,000 may have falsely elevated Potassium levels. ??For accurate Potassium quantification in these patients send serum separator tube (gold top) for subsequent determinations. ??Contact the Clinical Chemistry Laboratory if there are any questions. Chloride 102 98 - 107 mmol/L [facility] CO2 23 22 - 31 mmol/L [facility] Anion Gap 11 5 - 15 mmol/L [facility] Calcium 9.3 8.5 - 10.5 mg/dL [facility] Estimated GFR 143 >=60 mL/min/1. 73 m?? [facility] [...] CHEMISTRY ORDERABLES Performing Organization Address [facility] Co de Phone Number [facility] [place] [address] * (ABNORMAL) Sedimentation rate (10/30/2023 4:48 AM EDT) Sed Rate 103(H) 2 - 37 mm/hr [facility] Comment: Effective April 06, 2019 new capillary photometric technology has resulted in a change in reference ranges. It is recommended that each ESR result be reviewed with its own age appropriate reference range. Blood 10/30/2023 4:48 AM EDT 10/30/2023 5:01 AM EDT Narrative Resulting Agency Comment Spec In Lab Sharron Winters MD HEMATOLOGY ORDERABLE S Performing Organization Address [facility] Co de Phone Number [facility] [place] [address] * Magnesium (10/30/2023 4:48 AM EDT) Magnesium 0.89 0.69 - 1.07 mmol/L [facility] Blood 10/30/2023 4:48 AM EDT 10/30/2023 5:01 AM EDT Narrative Resulting Agency Comment Spec In Lab Sharron Winters MD CHEMISTRY ORDERABLES [facility] [place] [address] * POCT urine (10/29/2023 10:26 AM EDT) [facility] POC Urine HCG Negative POC Control Internal Controls Acceptable 10/29/2023 10:2 6 AM EDT Sharron Winters MD POINT OF CARE TEST O RDERABLES * (ABNORMAL) Differential, Automated (10/29/2023 8:37 AM EDT) [facility] Neutrophils % 74.9 % [facility] Neutr Abs (ANC) 6.45(H) 1.70 - 6.10 x10(3)/[facility] LABORATORY Lymphocytes % 16.8 % [facility] Lymphocytes Abs 1.4 0.9 - 3.2 x10(3)/[facility] LABORATORY Monocytes % 6.1 % [facility] Monocyte Abs 0.5 0.3 - 0.9 x10(3)/[facility] LABOR[facility]ORY Eosinophils % 1.3 % [facility] Eosinophils Abs 0.1 0.0 - 0.4 x10(3)/[facility] LABORATORY Basophils % 0.6 % [facility] Basophils Abs 0.0 0.0 - 0.1 x10(3)/[facility] LABORATORY Immature Gran % 0.30 % [facility] Comment: Immature granulocytes(IG's)percentage and absolute count will include metamyelocytes, myelocytes, and promyelocytes. Blood smears from CBCs yielding IG's will be scanned manually for concordance. If this scan disagrees with the automated IG or if promyelocytes are noted, a manual differential will be performed. Debora Gran Abs 0.03 0.00 - 0.04 x10(3)/ L [facility] Blood 10/29/2023 8:37 AM EDT 10/29/2023 8:47 AM EDT Narrative Resulting Agency Comment Spec In Lab Brennan Maldonado MD HEMATOLOGY ORDERABL ES [facility] [place] [address] * (ABNORMAL) Hemogram (10/29/2023 8:37 AM EDT) WBC 8.6 4.0 - 9.5 x10(3)/[facility] LABORATORY RBC 3.98(L) 4.00 - 5.21 x10(6)/[facility] LAB[facility]ORY Hemoglobin 11.2(L) 11.7 - 15.5 g/dL [facility] Hematocrit 33.8(L) 35.7 - 45.8 % [facility] MCV 84.9 82.6 - 94.4 [facility] LABORATORY MCH 28.1 27.1 - 32.0 pg [facility] MCHC 33.1 31.7 - 35.0 g/dL [facility] Platelets 477(H) 145 - 357 x10(3)/[facility] LABORATORY RDWSD 44.0 37.0 - 46.0 [facility] LABORATORY RDWCV 14.1 11.5 - 14.1 % [facility] MPV 9.3 7.6 - 12.9 [facility] LAB[facility] nRBC % Auto 0.0 % [facility] nRBC Abs Auto 0.000 0.000 - 0.000 x10(3)/[facility] LABOR[facility] Blood 10/29/2023 8:37 AM EDT 10/29/2023 8:47 AM EDT Narrative Resulting Agency Comment Spec In Lab Brennan Maldonado MD HEMATOLOGY ORDERABL ES [facility] [place] [address] * Lactate, whole blood, send to lab ([facility]) (10/29/2023 8:37 AM EDT) [facility] Lactate WB 1.8 0.5 - 2.2 mmol/L [facility] Blood 10/29/2023 8:37 AM EDT 10/29/2023 8:47 AM EDT Narrative Resulting Agency Comment Spec In Lab Brennan Maldonado MD CHEMISTRY ORDERABLE S [facility] [place] [address] * Phosphorus (10/29/2023 8:37 AM EDT) [facility] Phosphorus 3.6 2.5 - 4.5 mg/dL [facility] Blood 10/29/2023 8:37 AM EDT 10/29/2023 8:47 AM EDT Narrative Resulting Agency Comment Spec In Lab Brennan Maldonado MD CHEMISTRY ORDERABLE S [facility] [place] [address] * Magnesium (10/29/2023 8:37 AM EDT) [facility] Magnesium 0.94 0.69 - 1.07 mmol/L [facility] Blood 10/29/2023 8:37 AM EDT 10/29/2023 8:47 AM EDT Narrative Resulting Agency Comment Spec In Lab Brennan Maldonado MD CHEMISTRY ORDERABLE S [facility] [place] [address] * (ABNORMAL) Basic Metabolic Panel (non-fasting) (10/29/2023 8:37 AM EDT) [facility] Glucose Lvl 96 65 - 199 mg/dL [facility] Comment:Diabetes: >=200 mg/d L plus symptoms BUN 6(L) 8 - 18 mg/dL [facility] Creatinine 0.31(L) 0.70 - 1.20 mg/dL [facility] Sodium 140 135 - 145 mmol/L [facility] Potassium 4.2 3.5 - 5.0 mmol/L [facility] Comment: Please note: ??Patients with WBC >100,000 may have falsely elevated Potassium levels. ??For accurate Potassium quantification in these patients send serum separator tube (gold top) for subsequent determinations. ??Contact the Clinical Chemistry Laboratory if there are any questions. Chloride 103 98 - 107 mmol/L [facility] CO2 26 22 - 31 mmol/L [facility] Anion Gap 11 5 - 15 mmol/L [facility] Calcium 9.4 8.5 - 10.5 mg/dL [facility] Estimated GFR 145 >=60 mL/min/1. 73 m?? [facility] [...] Lab Brennan Maldonado MD CHEMISTRY ORDERABLE S [facility] [place] [address] * (ABNORMAL) Urinalysis Microscopic Exam (10/29/2023 2:33 AM EDT) RBC UA >100(H) 0 - 4 /HPF [facility] WBC UA 4 0 - 5 /HPF [facility] Squam Epith UA 4 <=4 /HPF [facility] Hyaline Cast UA <1 0 - 2 /LPF [facility] Comment: Interpret results with caution, microscopic results are from suboptimal specimen volume Straight Catheter Urine 10/29/2023 2:33 AM EDT 10/29/2023 2:43 AM EDT Narrative Resulting Agency Comment Spec In Lab Sharron Winters MD URINE ORDERABLES [facility] [place] [address] * (ABNORMAL) Urinalysis with reflex Culture (10/29/2023 2:33 AM EDT) Glucose UA Negative Negative mg/dL [facility] Protein UA 30(A) Negative mg/dL [facility] Bilirubin UA Negative Negative mg/dL [facility] Comment: Clinical correlation required for positive Urine Bilirubin results as false positive may occur with some drugs and drug related products. If a false positive is suspected a serum total bilirubin should be considered if clinically indicated. Urobilinogen UA Normal Normal mg/dL [facility] pH UA 6.5 5.0 - 8.0 [facility] Blood UA Large(A) Negative mg/dL [facility] Ketones UA Negative Negative mg/dL [facility] Nitrite UA Negative Negative [facility] Leukocytes UA Negative Negative [facility] Appearance UA Clear Clear [facility] Spec [place] UA >=1.030(A) 1.005 - 1.030 [facility] Color UA Yellow Yellow [facility] Culture Reflexed No [facility] Straight Catheter Urine 10/29/2023 2:33 AM EDT 10/29/2023 2:43 AM EDT Narrative Resulting Agency Comment Spec In Lab Sharron Winters MD URINE ORDERABLES Performing Organization Address [facility] Co de Phone Number [facility] [place] [address] * (ABNORMAL) CRP, acute inflammation (10/29/2023 2:08 AM EDT) CRP 133.4(H) <=4.9 mg/L [facility] Blood 10/29/2023 2:08 AM EDT 10/29/2023 2:33 AM EDT Narrative Resulting Agency Comment Spec In Lab Sharron Winters MD CHEMISTRY ORDERABLES Performing Organization Address [facility] Co de Phone Number [facility] [place] [address] * Phosphorus (10/29/2023 2:08 AM EDT) Phosphorus 3.1 2.5 - 4.5 mg/dL [facility] Blood 10/29/2023 2:08 AM EDT 10/29/2023 2:33 AM EDT Narrative Resulting Agency Comment Spec In Lab Sharron Winters MD CHEMISTRY ORDERABLES Performing Organization Address [facility] Co de Phone Number [facility] [place] [address] * (ABNORMAL) Sedimentation rate (10/29/2023 2:08 AM EDT) Sed Rate >119(H) 2 - 37 mm/hr [facility] Comment: Effective April 06, 2019 new capillary photometric technology has resulted in a change in reference ranges. It is recommended that each ESR result be reviewed with its own age appropriate reference range. Blood 10/29/2023 2:08 AM EDT 10/29/2023 2:33 AM EDT Narrative Resulting Agency Comment Spec In Lab Sharron Winters MD HEMATOLOGY ORDERABLE S Performing Organization Address [facility]/ZIP Co de Phone Number [facility] [place] [address] * Magnesium (10/29/2023 2:08 AM EDT) Magnesium 0.85 0.69 - 1.07 mmol/L [facility] Blood 10/29/2023 2:08 AM EDT 10/29/2023 2:33 AM EDT Narrative Resulting Agency Comment Spec In Lab Sharron Winters MD CHEMISTRY ORDERABLES Performing Organization Address [facility] de Phone Number [facility] [place] [address] * CT Lumbar Spine w Contrast (10/28/2023 9:50 PM EDT) Pathologist [facility] WORKSTATION ID [id number] RAD Anatomical Region Laterality Modality L-spine Computed [...] who have questions please contact the health managed care provider that requested your imaging first. ? Narrative [...] patients who have questions please contactthe health managed care provider that requested your imaging first. Siomara Hernandez MD IMG CT ORDERABLES * Differential, Automated (10/28/2023 9:00 PM EDT) Neutrophils % 66.3 % [facility] Neutr Abs (ANC) 5.75 1.70 - 6.10 x10(3)/[facility] Lymphocytes % 24.1 % [facility] Lymphocytes Abs 2.1 0.9 - 3.2 x10(3)/[facility] Monocytes % 7.2 % [facility] Monocyte Abs 0.6 0.3 - 0.9 x10(3)/[facility] Eosinophils % 1.4 % [facility] Eosinophils Abs 0.1 0.0 - 0.4 x10(3)/[facility] Basophils % 0.5 % [facility] Basophils Abs 0.0 0.0 - 0.1 x10(3)/[facility] LABOR[facility] Immature Gran % 0.50 % [facility] Comment: Immature granulocytes(IG's)percentage and absolute count will include metamyelocytes, myelocytes, and promyelocytes. Blood smears from CBCs yielding IG's will be scanned manually for concordance. If this scan disagrees with the automated IG or if promyelocytes are noted, a manual differential will be performed. Debora Gran Abs 0.04 0.00 - 0.04 x10(3)/[facility] Blood 10/28/2023 9:00 PM EDT 10/28/2023 9:17 PM EDT Narrative Resulting Agency Comment Spec In Lab Esteban King APRN HEMATOLOGY ORDERABLE S [facility] [place] [address] * (ABNORMAL) Hemogram (10/28/2023 9:00 PM EDT) WBC 8.7 4.0 - 9.5 x10(3)/[facility] LAB[facility] RBC 4.28 4.00 - 5.21 x10(6)/[facility] Hemoglobin 11.9 11.7 - 15.5 g/dL [facility] Hematocrit 36.5 35.7 - 45.8 % [facility] MCV 85.3 82.6 - 94.4 fL [facility] MCH 27.8 27.1 - 32.0 pg [facility] MCHC 32.6 31.7 - 35.0 g/dL [facility] Platelets 525(H) 145 - 357 x10(3)/[facility] RDWSD 43.8 37.0 - 46.0 fL [facility] RDWCV 14.2(H) 11.5 - 14.1 % [facility] MPV 9.2 7.6 - 12.9 fL [facility] nRBC % Auto 0.0 % [facility] nRBC Abs Auto 0.000 0.000 - 0.000 x10(3)/mcL [facility] Blood 10/28/2023 9:00 PM EDT 10/28/2023 9:17 PM EDT Narrative Resulting Agency Comment Spec In Lab Esteban Bacaicoa SALT MACHINE OPERATOR HEMATOLOGY ORDERABLE S [facility] [place] [address] * (ABNORMAL) CRP, acute inflammation (10/28/2023 9:00 PM EDT) CRP 148.3(H) <=4.9 mg/L [facility] Blood 10/28/2023 9:00 PM EDT 10/28/2023 9:17 PM EDT Narrative Resulting Agency Comment Spec In Lab Esteban Bacaicoa SALT MACHINE OPERATOR CHEMISTRY ORDERABLES Performing Organization Address [facility]/ZIP Co de Phone Number [facility] [place] [address] * (ABNORMAL) Sedimentation rate (10/28/2023 9:00 PM EDT) Sed Rate >119(H) 2 - 37 mm/hr [facility] Comment: Effective April 06, 2019 new capillary photometric technology has resulted in a change in reference ranges. It is recommended that each ESR result be reviewed with its own age appropriate reference range. Blood 10/28/2023 9:00 PM EDT 10/28/2023 9:17 PM EDT Narrative Resulting Agency Comment Spec In Lab Esteban Bacaicoa SALT MACHINE OPERATOR HEMATOLOGY ORDERABLE S Performing Organization Address City/[facility]/ZIP Co de Phone Number [facility] [place] [address] * (ABNORMAL) Basic Metabolic Panel (non-fasting) (10/28/2023 9:00 PM EDT) Glucose Lvl 88 65 - 199 mg/dL [facility] Comment:Diabetes: >=200 mg/d L plus symptoms BUN 7(L) 8 - 18 mg/dL [facility] Creatinine 0.25(L) 0.70 - 1.20 mg/dL [facility] Sodium 137 135 - 145 mmol/L [facility] Potassium Not Perf 3.5 - 5.0 [facility] Comment: Unable to quantitate due to [...] questions. Chloride 102 98 - 107 mmol/L [facility] CO2 25 22 - 31 mmol/L [facility] Anion Gap 10 5 - 15 mmol/L [facility] Calcium 9.4 8.5 - 10.5 mg/dL [facility] Estimated GFR 153 >=60 mL/min/1. 73 m?? [facility] [...] Agency Comment Spec In Lab Esteban Bacaicoa [place] CHEMISTRY ORDERABLES [facility] [place] [address] documented in this encounter Visit Diagnoses Diagnosis [...] PM EDT 2 g 100 mL/hr New 10/31/2023 6:16 PM EDT 2 g 100 [...] PM EDT 450 mg 118 mL/hr New 10/31/2023 10:43 PM EDT 450 mg 118 mL/hr New 10/30/2023 8:11 PM EDT 450 mg 118 [...] Routine 09 (Given - Provider: Maryana Cottrell RN)1331 (Given - Provider: Muriel Sanchez RN)210 [...] Dianne 10/29/23 at 0102, Until Discontinued, Routine 0952 (Given - Provider: Maryana Cottrell RN)2130 (Given - Provider: Arielle Conrteras RN) 08 (Given - Provider: Maryana Cottrell RN)2100 (Not Given - Provider: Arielle Contreras RN - Reason: See comment - Comment: no access) 09 (Not Given - Provider: Diandra Luo RN [...] other ordered pain medications are indicated., Routine 0952 (Given - Provider: Maryana Cottrell RN)1445 (Given - Provider: Muriel Sanchez RN)2130 (Given [...] Thu10/29/23 at 0100, Until Thu11/03/23 at 192, Sleep, Sleep, Routine ondansetron (pf) (Zofran) (2 [...] ordered. documented in this encounter Care Teams Bottom Scrubber Relationship Specialty Start Date End Date Lorna Bal APRN [address] [place] [address] PCP - General Family Medicine 05/27/18 documented as of this encounter
--- OUTSIDE RECORDS SUMMARY | 2023-11-23 16:34 | XMS_ITS | Encounter Summary ---
Author Organization [facility] Address [facility] [place] [address] Care Team Providers Care Wool Washing Machine Operator Name Role Phone Lorna Bal APRN Primary Care Provider +1 -[phone] Encounter Details Date Type Department Care Team (Latest Contact Info) Description 10/28/2023 Travel Social History Tobacco Use Types Packs/Day Years Used Date Smoking Tobacco: Never Passive Smoke Exposure: Never Smokeless Tobacco: Never Comments:NO SMOKERS IN THE H OME Alcohol Use Standard Drinks/Week Comments No 0 (1 standard drink = 0.6 oz pur e alcohol) [facility] Utilities Answer Date Recorded In the past 12 months has e [employer], gas, oil, or water [employer] threatened to shut off services in your [...] any time in the past 12 m ont, were you homeless or living in a fci (including now)? No 10/29/2023 IPV Inpatient Questions [...] EDT TH Visit (TeleHealth) [place] [address] Lilli Joy APRN [facility] [place] [address] 12/03/2023 12:30 PM EDT Office Visit Infectious Disease at [place] [phone] Hollie Ambriz MD [facility] [place] [address] 12/03/2023 2:30 PM EDT Hospital Encounter Radiology at [place] [phone] Andrade Melvin MD [facility] [place] [address] documented as of this encounter Visit Diagnoses Not on filedocumented in this encounter Care Teams Wool Washing Machine Operator Relationship Specialty Start Date End Date Lorna Bal APRN [address] [place] [address] PCP - General Family Medicine 05/27/18 documented as of this encounter
--- OUTSIDE RECORDS SUMMARY | 2023-11-23 16:34 | XMS_ITS | Encounter Summary ---
Author Organization [facility] [place] [address] Care Team Providers Care Financial Analyst Name Role Phone Lorna Bal APRN Primary Care Provider +1 -[phone] Encounter Details Date Type Department Care Team (Latest Contact Info) Description 09/24/2023 Travel Social History Tobacco Use Types Packs/Day Years Used Date Smoking Tobacco: Never Smokeless Tobacco: Never Comments:NO SMOKERS IN THE H OME Alcohol Use Standard Drinks/Week Comments No 0 (1 standard drink = 0.6 oz pur e alcohol) [facility] Inpatient Questions Answer Date Recorded Does Anyone [...] Infectious Disease at [facility] [place] [phone] Lilli Joy APRN [facility] [place] [address] 12/03/2023 12:30 PM EDT Office Visit Infectious Disease at [place] [phone] Hollie Ambriz MD [facility] [place] [address] 12/03/2023 2:30 PM EDT Hospital [place] [address] Andrade Melvin MD [facility] [place] [address] documented as of this encounter Visit Diagnoses Not on filedocumented in this encounter Care Teams Financial Analyst Relationship Specialty Start Date End Date Lorna Bal APRN [address] [place] [address] PCP - General Family Medicine 05/27/18 documented as of this encounter
--- OUTSIDE RECORDS SUMMARY | 2023-11-23 16:34 | XMS_ITS | Encounter Summary ---
Author Organization [facility] Address [facility] [place] [address] Care Team Providers Care Utility Spray Operator Name Role Phone Lorna Bal APRN Primary Care Provider +1 -[phone] Encounter Details Date Type Department Care Team (Late st Contact Info) Description 10/28/2023 Telephone [place] [address] Neva Thorpe, RN Social History Tobacco Use Types Packs/Day Years Used Date Smoking Tobacco: Never Passive Smoke Exposure: Never Smokeless Tobacco: Never Comments:NO SMOKERS IN THE H OME Alcohol Use Standard Drinks/Week Comments No 0 (1 standard drink = 0.6 oz pur e alcohol) [facility] Utilities Answer Date Recorded In the past 12 months has e [employer], gas, oil, or water [employer] threatened to shut off services in your [...] any time in the past 12 m [facility], were you homeless or living in [...] EDT This RN reached out to Fannie, caregiver, for an update on Tana. Also, checking in to see if labs were drawn and if CYT has been scheduled. Message left requesting a return call. documented in this encounter Plan of Treatment Upcoming Encounters Date Type Department Care Team (Late st Contact Info) Description 11/25/2023 2:00 PM EDT TH Visit (TeleHealth) [place] [address] Lilli Joy APRN [facility] [place] [address] 12/03/2023 12:30 PM EDT Office Visit [place] [phone] Hollie Ambriz MD [facility] [place] [address] 12/03/2023 2:30 PM EDT Hospital Encounter [place] [address] Andrade Melvin MD [facility] [place] [address] documented as of this encounter Visit Diagnoses Not on filedocumented in this encounter Care Teams Utility Spray Operator Relationship Specialty Start Date End Date Lorna Bal, MANAGER GROUP [address] [place] [address] PCP - General Family Medicine 05/27/18 documented as of this encounter
--- OUTSIDE RECORDS SUMMARY | 2023-11-23 16:34 | XMS_ITS | Encounter Summary ---
[place] [address] Care Team Providers Care Financial Recruiter Name Role Phone Lorna Bal APRN Primary Care Provider +1 -[phone] Reason for Referral * Consultation (Routine) - Authorized Specialty Diagnoses / Procedures Referred By Karlo duarte Referred To Contact Orthopaedics Diagnoses Contracture of joint of hand, 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 Lorna Bal APRN [address] [place] [address] [facility] [address] [place] [phone] Referral ID Status Reason Start Date Expiration Date Visits Requested Visits Authorized [id number] Authorized Consult, Test & Treat PCP Updated and/or Approved 08/03/2023 08/02/2024 6 6 Encounter Details Date Type Department Care Team (Latest Contact Info) Description 08/03/2023 Transcribe Orders eDH Incoming Referrals [phone] Lorna Bal APRN [address] [place] [address] Contracture of joint of hand, unspecified laterality [...] Visit (TeleHealth) Infectious Disease at [place] [phone] Lilli Joy APRN [facility] [address] [place] [address] 12/03/2023 12:30 PM EDT Office Visit Infectious Disease at [place] [phone] Hollie Ambriz MD [facility] [place] [address] 12/03/2023 2:30 PM EDT Hospital Encounter Radiology at [place] [phone] Andrade Melvin MD [facility] [place] [address] Scheduled Referrals Name Type Priority Associated Diagnoses Orde r Schedule Referral to Orthopaedics Outpatient Referral Routine Contracture of joint of hand, unspecified laterality Ordered: 08/03/2023 documented as of this encounter Visit Diagnoses Diagnosis Contracture of joint of hand, unspecified laterality documented in this encounter Care Teams Financial Recruiter Relationship Specialty Start Date End Date Lorna Bal APRN [address] [place] [address] PCP - General Family Medicine 05/27/18 documented as of this encounter
--- OUTSIDE RECORDS SUMMARY | 2023-11-23 16:34 | XMS_ITS | Encounter Summary ---
[place] [address] Care Team Providers Care Health Education Coordinator Name Role Phone Lorna Bal APRN Primary Care Provider +1 -[phone] Reason for Visit * Occupational Therapy (Routine) - Closed Specialty Diagnoses / Procedures Referred By Karlo t Referred To Contact Occupational Therapy Diagnoses Chronic pain of right thumb Lucho Foster MD [facility] DR [place] [address] [facility] [place] [address] Referral ID Status Reason Start Date Expiration Date V isits Requested Visits Authorized [id number] Closed Consult Only 09/29/2023 09/28/2024 30 30 Encounter Details Date Type Department Care Team (Latest Contact Info) Description 09/29/2023 10:00 AM EDT Office [place] [address] Gaby Lake OT Spastic quadriparesis secondary to [...] Code Treatment Time: 0 minutes OCCUPATIONAL PROFILE: Taan Cavazos is a 28 y.o. year old [...] with demonstration in therapy. Goal Status: Meets Group Home Goals (to be met by one year): [...] EDT TH Visit (TeleHealth) [place] [address] Lilli Joy APRN [facility] [place] [address] 12/03/2023 12:30 PM EDT Office [place] [phone] Hollie Ambriz MD [facility] [place] [address] 12/03/2023 2:30 PM EDT Hospital [place] [address] Andrade Melvin MD [facility] INTERVENTION[place] [address] Scheduled Referrals Name Type Priority Associated Diagnoses Order Schedule Referral to Occupational Therapy Outpatient Referral Routine Chronic pain of right thumb Ordered: 09/29/2023 documented as of this encounter Visit Diagnoses Diagnosis 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
--- OUTSIDE RECORDS SUMMARY | 2023-11-23 16:34 | XMS_ITS | Encounter Summary ---
Author Organization [facility] [place] [address] Care Team Providers Care Professor Of English Name Role Phone Lorna Bal APRN Primary Care Provider +1 -[phone] Encounter Details Date Type Department Care Team (Latest Contact Info) Description 08/24/2023 9:00 AM EDT TH Visit (TeleHealth) [place] [phone] Samantha Crystal APRN [facility] [place] [address] Constipation, unspecified constipation type Social History Tobacco Use Types Packs/Day Years Used Date Smoking Tobacco: Never Smokeless Tobacco: Never Comments:NO SMOKERS IN THE H OME Alcohol Use Standard Drinks/Week Comments No 0 (1 standard drink = 0.6 oz pur e alcohol) [facility] Inpatient Questions Answer Date Recorded Does Anyone [...] this encounter Progress Notes * Samantha Crystal, FRONT OFFICE SUPERVISOR - 08/24/2023 9:00 AM EDT Gastroenterology Follow Up Telehealth Note Ms. Tana Cavazos is a 28 y.o. female who presents to the section of Gastroenterology for follow upfor constipation. Interval Update: -Here today with Fernanda her md pediatric allergist. -Since her colonoscopy her bowels have been [...] stomach discomfort. She is being followed in [place] after hospital stay for a spinal infection. [...] Martino MD [facility] INTERVENTIONL RAD IR ALL DRAINAGE PROCEDURES 07/04/2022 IR All Drainage Procedures 07/04/2022 Mich Martino MD [facility] INTERVENTIONL RAD IR ALL DRAINAGE PROCEDURES 07/24/2022 IR All Drainage Procedures 07/24/2022 Anurag Kumar MD [facility] INTERVENTIONL RAD IR ALL DRAINAGE PROCEDURES 09/26/2022 IR All Drainage Procedures 09/26/2022 Jamaal Jenkins, DO [facility] INTERVENTIONL RAD IR DRAIN CHECK/CHANGE/REMOVE 07/01/2022 IR Drain Check/Change/Remove 07/01/2022 Jamaal Jenkins, DO [facility] INTERVENTIONL RAD IR DRAIN CHECK/CHANGE/REMOVE 08/11/2022 IR Drain Check/Change/Remove 08/11/2022 Piter Self MD [facility] INTERVENTIONL RAD IR DRAIN CHECK/CHANGE/REMOVE 08/25/2022 IR Drain Check/Change/Remove 08/25/2022 Jamaal Jenkins, DO [facility] INTERVENTIONL RAD IR DRAIN CHECK/CHANGE/REMOVE 09/10/2022 IR Drain Check/Change/Remove 09/10/2022 Mich Martino MD [facility] INTERVENTIONL RAD PRO APPLY OF HIP CASTS, TWO LEGS 08/15/2010 CAST APPLICATION, HIP SPICA, BOTH LEGS performed by BARRERA OLIVER at [facility] MAIN OR PRO COLONOSCOPY, BIOPSY N/A 08/05/2023 COLONOSCOPY FLEXIBLE, WITH BX (WRVU 3.56) performed by Jamar Gastelum MD at [facility] ENDOSCOPY PRO I&D, POST SPINE, LUMB/SACR/LUMBOSAC N/A 05/20/2014 @I & D, OPEN, DEEP ABSCESS, LUMBAR, SACRAL, LUMBOSACRAL performed by Freddy Isbell MD at [facility] MAIN OR PRO I&D, POST SPINE, LUMB/SACR/LUMBOSAC N/A 05/26/2014 @I & D, OPEN, DEEP ABSCESS, LUMBAR, SACRAL, LUMBOSACRAL performed by Freddy Isbell MD at [facility] MAIN OR PRO IMPACT TOOTH REMOV COMP BONY N/A 06/14/2018 SURGICAL EXTRACTIONS, REMOVAL OF IMPACTED TOOTH, COMPLETELY BONY (WRVU 1.93) performed by Keith Cotton MD at [facility] OSC PRO OSTEOTOMY FEMUR SHAFT/SUPRACONDY 08/15/2010 ??OSTEOTOMY, FEMUR SHAFT OR SUPRACONDYLAR W/O FIXATION performed by BARRERA OLIVER at [facility] OR PRO RECONSTRUC HIP SOCKET, RESEC FEM HEAD 08/15/2010 ??ACETABULOPLASTY (GIRDLESTONE), RESECTION FEMORAL HEAD, BILATERAL performed by BARRERA OLIVER [facility] MAIN OR PRO REMOVAL DEEP IMPLANT 08/15/2010 REMOVAL IMPLANT, DEEP, BRUNO performed by BARRERA OLIVER at [facility] MAIN OR PRO REMOVAL ERUPTED TOOTH WITH ELEVATION OF MUCOPERIOSTEAL FLAP N/A 06/14/2018 SURGICAL EXTRACTIONS REQUIRING ELEVATION OF MUCOPERIOSTEAL FLAP AND REMOVAL OF BONE OR SECTION OF TOOTH (WRVU 1.09) performed by Keith Cotton MD at [facility] OSC PRO REMOVE INFUSN DEVICE/PUMP N/A 05/11/2014 REMOVAL OF SPINE INFUSION PUMP performed by Jamaal Samuel MD at [facility] MAIN OR PRO REMOVE SPINAL CANAL CATHETER N/A 05/11/2014 REMOVAL OF INTRATHECAL OR EPIDURAL CATHETER performed by Jamaal Samuel MD at [facility] MAIN OR PRO REPR, DURAL/CSF LEAK, NOT REQ LAMINECTOMY N/A 05/20/2014 @REPAIR DURAL\CSF LEAK,NOT REQUIRING LAMINECTOMY performed by Freddy Isbell MD at [facility] MAIN OR MEDICATIONS: Current Outpatient [...] [Transparent Dressings] Itching and Dermatitis Please use [id number] Cyclobenzaprine Other Reaction(s): Not available Doxycycline Other [...] labs. Theyare requesting [facility] ([facility] and [facility]). I will need to request [...] office visit: 5 minutes Samantha Crystal, TOMEKA, FRONT OFFICE SUPERVISOR, STRIP MILL OPERATOR-C Section of Gastroenterology and Hepatology [place] [phone] documented in this encounter Plan of Treatment Upcoming Encounters Date Type Department Care Team (Late st Contact Info) Description 11/25/2023 2:00 PM EDT TH Visit (TeleHealth) [place] [address] Lilli Joy APRN [facility] [place] [address] 12/03/2023 12:30 PM EDT Office [place] [address] Hollie Ambriz MD [facility] [place] [address] 12/03/2023 2:30 PM EDT Hospital [place] [phone] Andrade Melvin MD [facility] [address] [place] [address] documented as of this encounter Visit Diagnoses Diagnosis Constipation, unspecified constipation type documented in this encounter Care Teams Professor Of English Relationship Specialty Start Date End Date Lorna Bal, [place] [address] [place] [address] PCP - General Family Medicine 05/27/18 documented as of this encounter
--- OUTSIDE RECORDS SUMMARY | 2023-11-23 16:35 | XMS_ITS | Encounter Summary ---
Author Organization [facility] Address [facility] [place] [address] Care Team Providers Care Tax Technician Name Role Phone Lorna Bal APRN Primary Care Provider +1 -[phone] Encounter Details Date Type Department Care Team (Late st Contact Info) Description 09/24/2022 [place] [address] Hank Nunez PA [facility] [place] [address] Social History Tobacco Use Types Packs/Day Years Used Date Smoking Tobacco: Never Smokeless Tobacco: Never Comments:NO SMOKERS IN THE H OME Alcohol Use Standard Drinks/Week Comments No 0 (1 standard drink = 0.6 oz pur e alcohol) [facility] Inpatient Questions Answer Date Recorded [...] Patient Name: Tana Cavazos : 1995 MR#: [id number] Spoke with Anderson regarding concerns regarding overall plan for Tana. Recommended she attend her appointments in [place] in hope of guiding toward more definitive [...] EDT TH Visit (TeleHealth) Infectious Disease at [place] [phone] Lilli Joy APRN [facility] [place] [address] 12/03/2023 12:30 PM EDT Office [place] [address] Hollie Ambriz MD [facility] [place] [address] 12/03/2023 2:30 PM EDT Hospital Encounter Radiology at [place] [phone] Andrade Melvin MD [facility] [address] [place] [address] documented as of this encounter Visit Diagnoses Not on filedocumented in this encounter Care Teams Tax Technician Relationship Specialty Start Date End Date Lorna Bal APRN [address] [place] [address] PCP - General Family Medicine 05/27/18 documented as of this encounter
--- OUTSIDE RECORDS SUMMARY | 2023-11-23 16:35 | XMS_ITS | Encounter Summary ---
Author Organization [facility] [place] [address] Care Team Providers Care Laborer Cutting Tool Name Role Phone Lorna Bal APRN Primary Care Provider +1 -[phone] Encounter Details Date Type Department Care Team (Latest Contact Info) Description 12/31/2022 Travel Social History Tobacco Use Types Packs/Day Years Used Date Smoking Tobacco: Never Smokeless Tobacco: Never Comments:NO SMOKERS IN THE H OME Alcohol Use Standard Drinks/Week Comments No 0 (1 standard drink = 0.6 oz pur e alcohol) [facility] Inpatient Questions Answer Date Recorded Does [...] Disease at [facility] [place] [address] Lilli Joy APRN [facility] [place] [address] 12/03/2023 12:30 PM EDT Office Visit Infectious Disease at [place] [phone] Hollie Ambriz MD [facility] [place] [address] 12/03/2023 2:30 PM EDT Hospital En[place] [address] Andrade Melvin MD [facility] [place] [address] documented as of this encounter Visit Diagnoses Not on filedocumented in this encounter Care Teams Laborer Cutting Tool Relationship Specialty Start Date End Date Lorna Bla APRN [address] [place] [address] PCP - General Family Medicine 05/27/18 documented as of this encounter
--- OUTSIDE RECORDS SUMMARY | 2023-11-23 16:35 | XMS_ITS | Encounter Summary ---
Author Organization [facility] [place] [address] Care Team Providers Care Car Record Clerk Name Role Phone Lorna Bal APRN Primary Care Provider +1 -[phone] Encounter Details Date Type Department Care Team (Late st Contact Info) Description 04/03/2023 Telephone [place] [phone] Halima García Social History Tobacco Use Types [...] the lab orders were never sent to [facility]. I reviewed the lab orders and she mentioned the ESR was missing. Jack Varghese documented in this encounter Plan of Treatment Upcoming Encounters Date Type Department Care Team (Late st Contact Info) Description 11/25/2023 2:00 PM EDT TH Visit (TeleHealth) Infectious Disease at [place] [phone] Lilli Joy APRN [facility] [place] [address] 12/03/2023 12:30 PM EDT Office [place] [address] Hollie Ambriz MD [facility] [place] [address] 12/03/2023 2:30 PM EDT Hospital [place] [address] Andrade Melvin MD [facility] [place] [address] documented as of this encounter Visit Diagnoses Diagnosis Spinal abscess Acute osteomyelitis, other specified site documented in this encounter Care Teams Car Record Clerk Relationship Specialty Start Date End Date Valeriano, Lorna H, MANUAL TRAINING TEACHER [address] [place] [address] PCP - General Family Medicine 05/27/18 documented as of this encounter
--- OUTSIDE RECORDS SUMMARY | 2023-11-23 16:35 | XMS_ITS | Encounter Summary ---
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, other site Procedures CT Thoracic Spine wo Contrast (Generic) Lorna Bal APRN [address] [place] [address] [facility] [place] [address] Referral ID Status Reason Start Date Expiration Date V isits Requested Visits Authorized [id number] Closed Specialty Service Requested 12/25/2022 06/24/2024 1 1 * Diagnostic Test (Routine) - Closed Specialty Diagnoses / Procedures Referred By Contac t Referred To Contact Radiology Diagnoses Cerebral palsy, unspecified type 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, other site Procedures CT Cervical Spine wo Contrast Lorna Bal APRN [address] [place] [address] [facility] [place] [address] Referral ID Status Reason Start Date Expiration Date V isits Requested Visits Authorized [id number] Closed Specialty Service Requested 12/25/2022 06/24/2024 1 1 Reason for Visit * Diagnostic Test (Routine) - Closed Specialty Diagnoses / Procedures Referred By Contmonica t Referred To Contact Radiology Diagnoses Cerebral palsy, unspecified type 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, other site Procedures CT Cervical Spine wo Contrast Lorna Bal APRN [address] [place] [address] [facility] [place] [address] Referral ID Status Reason Start Date Expiration Date V isits Requested Visits Authorized [id number] Closed Specialty Service Requested 12/25/2022 06/24/2024 1 1 Encounter Details Date Type Department Care Team (Latest Contact Info) Description 12/31/2022 10:50 AM EDT - 12/31/2022 11:59 PM EDT Hospital [place] [address] Lorna Bal APRN [address] [place], [place] [id number] Cerebral palsy, unspecified type; Congenital deformity of spine; Chronic osteomyelitis with draining sinus, other site Discharge Disposition: Home Social History Tobacco Use Types Packs/Day Years Used Date Smoking Tobacco: Never Smokeless Tobacco: Never Comments:NO SMOKERS IN THE H OME Alcohol Use Standard Drinks/Week Comments No 0 (1 standard drink = 0.6 oz pur e alcohol) COUNTS INCLUDE 234 BEDS AT [facility] Inpatient Questions Answer Date Recorded [...] EDT TH Visit (TeleHealth) Infectious Disease at [place] [phone] Lilli Joy APRN [facility] [place] [address] 12/03/2023 12:30 PM EDT Office Visit Infectious Disease at [place] [phone] Hollie Ambriz MD [facility] [place] [address] 12/03/2023 2:30 PM EDT Hospital Encounter Radiology at [place] [phone] Andrade Melvin MD [facility] [place] [address] documented as of this encounter Procedures Procedure [...] service that requested your imaging first. ? Narrative [...] customer service that requested your imaging first. Lorna Bal APRN [facility] CT ORDERABLES * CT Cervical [...] service that requested your imaging first. ? Narrative [...] customer service that requested your imaging first. 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
--- OUTSIDE RECORDS SUMMARY | 2023-11-23 16:35 | XMS_ITS | Encounter Summary ---
Author Organization [facility] [place] [address] Care Team Providers Care Employment Office Clerk Name Role Phone Lorna Bal APRN Primary Care Provider [phone] [phone] Reason for Referral * Diagnostic Test (Routine) - Closed Specialty Diagnoses / Procedures Referred By Contac t Referred To Contact Radiology Diagnoses Spinal abscess Procedures IR All Drainage Procedures IR All Biopsy Procedures Jamar Dasilva MD [facility] [place] [address] [place] [address] Referral ID Status Reason Start Date Expiration Date V isits Requested Visits Authorized [id number] Closed Specialty Service Requested 09/26/2022 03/28/2024 1 1 Encounter Details Date Type Department Care Team (Late st Contact Info) Description 09/26/2022 Orders Only [place] [address] Jamar Dasilva MD [facility] [place] [address] Spinal abscess Social History Tobacco [...] EDT TH Visit (TeleHealth) [place] [address] Lilli Joy APRN [facility] [place] [address] 12/03/2023 12:30 PM EDT Office Visit Infectious Disease at [place] [phone] Hollie Ambriz MD [facility] [place] [address] 12/03/2023 2:30 PM EDT Hospital [place] [address] Andrade Melvin MD [facility] [place] [address] documented as of this encounter Results * [...] present throughout the procedure. Jamar Dasilva MD G IR ORDERABLES * AFB culture Back (09/26/2022 12:49 PM EDT) Acid Fast Bacilli Culture No Acid Fast Bacilli isolated [facility] Acid Fast Stain No Acid Fast Bacilli seen [facility] Back 09/26/2022 12:4 9 PM EDT 09/26/2022 2:05 PM EDT Narrative Resulting Agency Comment Spec In Lab Jamar Dasilva MD [facility] ORDERABLES Performing Organization Address City/State/[facility] Co de Phone Number [facility] [place] [place] [address] documented in this encounter Visit Diagnoses Diagnosis Spinal abscess Acute osteomyelitis, other specified site Spinal abscess Acute osteomyelitis, other specified site documented in this encounter Care Teams Employment Office Clerk Relationship Specialty Start Date End Date Lorna Bal APRN [address] [place] [address] PCP - General Family Medicine 05/27/18 documented as of this encounter
--- OUTSIDE RECORDS SUMMARY | 2023-11-23 16:35 | XMS_ITS | Encounter Summary ---
Author Organization [facility] [place] [address] Care Team Providers Care Racing Mechanic Name Role Phone Lorna Bal APRN Primary Care Provider +1 [phone] Encounter Details Date Type Department Care Team (Late st Contact Info) Description 06/12/2023 Telephone [place] [phone] Tobi Luna Social History Tobacco Use Types [...] Visit (TeleHealth) Infectious Disease at [place] [phone] Lilli Joy APRN [facility] [place] [address] 12/03/2023 12:30 PM EDT Office [place] [address] Hollie Ambriz MD [facility] [place] [address] 12/03/2023 2:30 PM EDT Hospital [place] [address] Andrade Melvin MD [facility] [place] [address] documented as of this encounter Visit Diagnoses Not on filedocumented in this encounter Care Teams Racing Mechanic Relationship Specialty Start Date End Date Lorna Bal APRN [address] [place] [address] PCP - General Family Medicine 05/27/18 documented as of this encounter
--- OUTSIDE RECORDS SUMMARY | 2023-11-23 16:35 | XMS_ITS | Encounter Summary ---
Author Organization [facility] [place] [address] Care Team Providers Care Calculation Reviewer Name Role Phone Lorna Bal APRN Primary Care Provider +1 [phone] Encounter Details Date Type Department Care Team (Late st Contact Info) Description 03/30/2023 Telephone [place] [phone] Halima García Social History Tobacco Use Types Packs/Day Years Used Date Smoking Tobacco: Never Smokeless Tobacco: Never Comments:NO SMOKERS IN THE H OME Alcohol Use Standard Drinks/Week Comments No 0 (1 standard drink = 0.6 oz pur e alcohol) [facility] Inpatient Questions Answer Date Recorded Does Anyone [...] 8:44 AM EST Erika - pharmacist CB: [phone] [facility] [place], [place] - [address] [facility]. Erika from [facility] called Dr. Tipt[place] isn't setup with [place] medicaid so the script for bactrim won't go through. The pharmacy is requesting a new script from the attending. Jack Varghese documented in this encounter Plan of Treatment Upcoming Encounters Date Type Department Care Team (Late st Contact Info) Description 11/25/2023 2:00 PM EDT TH Visit (TeleHealth) Infectious Disease at [place] [phone] Lilli Joy APRN [facility] [place] [address] 12/03/2023 12:30 PM EDT Office Visit Infectious Disease at [place] [phone] Hollie Ambriz MD [facility] [place] [address] 12/03/2023 2:30 PM EDT Hospital Encounter Radiology at [place] [phone] Andrade Melvin MD [facility] [place] [address] documented as of this encounter Visit Diagnoses Not on filedocumented in this encounter Care Teams Calculation Reviewer Relationship Specialty Start Date End Date Lorna Bal APRN [address] [place] [address] PCP - General Family Medicine 05/27/18 documented as of this encounter
--- OUTSIDE RECORDS SUMMARY | 2023-11-23 16:35 | XMS_ITS | Encounter Summary ---
Author Organization [facility] [place] [address] Care Team Providers Care Cell Coverer Name Role Phone Lorna Bal APRN Primary Care Provider +1 -[phone] Encounter Details Date Type Department Care Team (Latest Contact Info) Description 04/16/2023 Travel Social History Tobacco Use Types Packs/Day Years Used Date Smoking Tobacco: Never Smokeless Tobacco: Never Comments:NO SMOKERS IN THE H OME Alcohol Use Standard Drinks/Week Comments No 0 (1 standard drink = 0.6 oz pur e alcohol) [facility] Inpatient Questions Answer Date Recorded [...] EDT TH Visit (TeleHealth) Infectious Disease at [facility] [place] [phone] Lilli Joy APRN [facility] [place] [address] 12/03/2023 12:30 PM EDT Office Visit Infectious Disease at [place] [phone] Hollie Ambriz MD [facility] [place] [address] 12/03/2023 2:30 PM EDT Hospital [place] [address] Andrade Melvin MD [facility] [place] [address] documented as of this encounter Visit Diagnoses Not on filedocumented in this encounter Care Teams Cell Coverer Relationship Specialty Start Date End Date Lorna Bal APRN [address] [place] [address] PCP - General Family Medicine 05/27/18 documented as of this encounter
--- OUTSIDE RECORDS SUMMARY | 2023-11-23 16:35 | XMS_ITS | Encounter Summary ---
Author Organization [facility] [place] [address] Care Team Providers Care Convention Manager Name Role Phone Lorna Bal APRN Primary Care Provider +1 -[phone] Encounter Details Date Type Department Care Team (Late st Contact Info) Description 09/25/2022 Telephone [place] [phone] Jamar Dasilva MD [facility] [place] [address] Social History Tobacco Use Types Packs/Day Years [...] status. Tana saw her neurosurgeon today in [place]. He feels that her symptoms are an allergic reaction to the current abx and requests that the abx be changed. The neurosurgeon said that they need to go in and remove a screw and clean out the area around the meredith in Tana's back. They do not want to do this at [facility] as it will require a plastic surgeon to close up due to Tana's skin being compromised. Javed relays that the neurosurgeon is trying to arrange surgery in [place] where a plastic surgeon is available. The [...] went over 70 she needed to go [facility] ED. Should she do that? No fever and WBC is normal. #4- Can Dr. Dasilva help to schedule an appt with radiology to have the drains put back in? documented in this encounter Plan of Treatment Upcoming Encounters Date Type Department Care Team (Late st Contact Info) Description 11/25/2023 2:00 PM EDT TH Visit (TeleHealth) [place] [address] Lilli Joy APRN [facility] [place] [address] 12/03/2023 12:30 PM EDT Office [place] [phone] Hollie Ambriz MD [facility] [place] [address] 12/03/2023 2:30 PM EDT Hospital [place] [address] Andrade Melvin MD [facility] [place] [address] documented as of this encounter Visit Diagnoses Not on filedocumented in this encounter Care Teams Convention Manager Relationship Specialty Start Date End Date Lorna Bal APRN [address] [place] [address] PCP - General Family Medicine 05/27/18 documented as of this encounter
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
--- OUTSIDE RECORDS SUMMARY | 2023-11-23 16:35 | XMS_ITS | Encounter Summary ---
Author Organization [facility] [place] [address] Care Team Providers Care Sulfur Chloride Operator Name Role Phone Lorna Bal APRN Primary Care Provider [phone] [phone] Encounter Details Date Type Department Care Team (Late st Contact Info) Description 12/25/[address] [place] [phone] Sirisha Patino Social History Tobacco Use Types [...] EDT TH Visit (TeleHealth) [place] [address] Lilli Joy APRN [facility] [place] [address] 12/03/2023 12:30 PM EDT Office Visit Infectious Disease at [place] [phone] Hollie Ambriz MD [facility] [place] [address] 12/03/2023 2:30 PM EDT Hospital Encounter Radiology at [place] [phone] Andrade Melvin MD [facility] [place] [address] documented as of this encounter Visit Diagnoses Not on filedocumented in this encounter Care Teams Sulfur Chloride Operator Relationship Specialty Start Date End Date Lorna Bal APRN [address] [place] [address] PCP - General Family Medicine 05/27/18 documented as of this encounter
--- OUTSIDE RECORDS SUMMARY | 2023-11-23 16:35 | XMS_ITS | Encounter Summary ---
Author Organization [facility] [place] [address] Care Team Providers Care Upfitter Name Role Phone Lorna Bal APRN Primary Care Provider +1 -[phone] Encounter Details Date Type Department Care Team (Late st Contact Info) Description 04/24/2023 Telephone Infectious Disease at [facility] [place] [address] Meme Morataya Social History Tobacco Use Types [...] EDT TH Visit (TeleHealth) Infectious Disease at [place] [phone] Lilli Joy APRN [facility] [place] [address] 12/03/2023 12:30 PM EDT Office Visit [place] [address] Hollie Ambriz MD [facility] [place] [address] 12/03/2023 2:30 PM EDT Hospital Encounter Radiology at [place] [phone] Andrade Melvin MD [facility] [place] [address] documented as of this encounter Visit Diagnoses Not on filedocumented in this encounter Care Teams Upfitter Relationship Specialty Start Date End Date Lorna Bal APRN [address] [place] [address] PCP - General Family Medicine 05/27/18 documented as of this encounter
--- OUTSIDE RECORDS SUMMARY | 2023-11-23 16:35 | XMS_ITS | Encounter Summary ---
Author Organization [facility] [place] [address] Care Team Providers Care Coin Wrapping Machine Operator Name Role Phone Lorna Bal APRN Primary Care Provider +1 [phone] Reason for Referral * Diagnostic Test (Routine) - Closed Specialty Diagnoses / Procedures Referred By Contac t Referred To Contact Radiology Diagnoses Spinal abscess Procedures CT Lumbar Spine w Contrast Jamar Dasilva MD [facility] [place] [address] [place] [address] Referral ID Status Reason Start Date Expiration Date V isits Requested Visits Authorized [id number] Closed Specialty Service Requested 09/25/2022 03/27/2024 1 1 Encounter Details Date Type Department Care Team (Late st Contact Info) Description 09/25/2022 Orders Only [place] [address] Jamar Dasilva MD [facility] [place] [address] Spinal abscess Social History Tobacco [...] EDT TH Visit (TeleHealth) [place] [address] Lilli Joy APRN [facility] [place] [address] 12/03/2023 12:30 PM EDT Office Visit [place] [address] Hollie Ambriz MD [facility] [place] [address] 12/03/2023 2:30 PM EDT Hospital [place] [address] Andrade Melvin MD [facility] [place] [address] documented as of this encounter Results * [...] who have questions please contact the health health care marketing manager that requested your imaging first. ? [...] patients who have questions please contactthe health health care marketing manager that requested your imaging first. Jamar Dasilva MD IMG CT ORDERABLES documented in this encounter Visit Diagnoses Diagnosis Spinal abscess Acute osteomyelitis, other specified site Spinal abscess Acute osteomyelitis, other specified site documented in this encounter Care Teams Coin Wrapping Machine Operator Relationship Specialty Start Date End Date Lorna Bal APRN [address] [place] [address] PCP - General Family Medicine 05/27/18 documented as of this encounter
--- OUTSIDE RECORDS SUMMARY | 2023-11-23 16:35 | XMS_ITS | Encounter Summary ---
Author Organization [facility] [address] Care Team Providers Care Ring Attacher Name Role Phone Lorna Bal APRN Primary Care Provider +1 -[phone] Encounter Details Date Type Department Care Team (Latest Contact Info) Description 01/29/2023 Travel Social History Tobacco Use Types Packs/Day Years Used Date Smoking Tobacco: Never Smokeless Tobacco: Never Comments:NO SMOKERS IN THE H OME Alcohol Use Standard Drinks/Week Comments No 0 (1 standard drink = 0.6 oz pur e alcohol) [facility] Inpatient Questions Answer Date Recorded Does [...] Infectious Disease at [facility] [place] [address] Lilli Joy APRN [facility] [place] [address] 12/03/2023 12:30 PM EDT Office Visit Infectious Disease at [place] [phone] Hollie Ambriz MD [facility] [place] [address] 12/03/2023 2:30 PM EDT Hospital [place] [address] Andrade Melvin MD [facility] [place] [address] documented as of this encounter Visit Diagnoses Not on filedocumented in this encounter Care Teams Ring Attacher Relationship Specialty Start Date End Date Lorna Bal APRN [address] [place] [address] PCP - General Family Medicine 05/27/18 documented as of this encounter
--- OUTSIDE RECORDS SUMMARY | 2023-11-23 16:35 | XMS_ITS | Encounter Summary ---
Author Organization [facility] [place] [address] Care Team Providers Care Naval Aircrewman Tactical Helicopter Name Role Phone Lorna Bal APRN Primary Care Provider +1 [phone] Encounter Details Date Type Department Care Team (Latest Contact Info) Description 03/27/2023 2:54 PM EST - 03/27/2023 11:59 PM EST Hospital [place] [address] [place] [address] Spinal abscess Discharge Disposition: Home Social History Tobacco Use Types Packs/Day Years Used Date Smoking Tobacco: Never Smokeless Tobacco: Never Comments:NO SMOKERS IN THE H OME Alcohol Use Standard Drinks/Week Comments No 0 (1 standard drink = 0.6 oz pur e alcohol) [facility] Inpatient Questions Answer Date Recorded [...] EDT TH Visit (TeleHealth) [place] [address] Lilli Joy APRN [facility] [place] [address] 12/03/2023 12:30 PM EDT Office [place] [address] Hollie Ambriz MD [facility] [place] [address] 12/03/2023 2:30 PM EDT Hospital [place] [address] Andrade Melvin MD [facility] [place] [address] documented as of this encounter Procedures Procedure [...] who have questions, please contact the health menagerie caretaker that requested your imaging first. ? Curt Dozier, Staff Physician Electronically Signed Final Report ?? 03/27/2023 03:36 pm Narrative 03/27/2023 3:37 PM EST Abdominal ? (Signed Final 03/27/2023 03:36 pm) PATIENT INFO: ID #: ? [id number] ?: ??[id number] (27 yrs)(F) Name: ? TANA SHELTON ?Visit Date: 03/27/2023 03:21 pm PERFORMED BY: Attending: ?Jacoby GONZALES MD, Curt Langston Performed By: ? Shelby Gardner RDMS Referred By: ?GABO BANDA Location: ? [place] SERVICE(S) PROVIDED: [facility] - Hepatology Protocol - Abdominal ?06445 Limited Survey Single Organ or Quadrant - [id number] INDICATIONS: Transaminitis ------ LIVER: ------ Right Lobe [...] 03/27/2023 03:36 pm) PATIENT INFO: ID #: [id number] : [id number] (27 yrs)(F) Name: TANA SHELTON Visit Date: 03/27/2023 03:21 pm PERFORMED BY: Attending: Jacoby GONZALES MD, Arthur L. Performed By: Shelby Gardner RDMS Referred By: GABO BANDA Location: [place] SERVICE(S) PROVIDED: [facility] - Hepatology Protocol - Abdominal 22104 Limited Survey Single Organ or Quadrant - [id number] INDICATIONS: Transaminitis ------ LIVER: ------ Right Lobe [...] who have questions, please contact the health menagerie caretaker that requested your imaging first. Curt Dozier, Staff Physician Electronically Signed Final Report 03/27/2023 03:36 pm Gabo Banda MD IMG US GEN ORDERABL ES documented in this encounter Visit Diagnoses Diagnosis Spinal abscess Acute osteomyelitis, other specified site documented in this encounter Care Teams Naval Aircrewman Tactical Helicopter Relationship Specialty Start Date End Date Lorna Bal APRN [address] [place] [address] PCP - General Family Medicine 05/27/18 documented as of this encounter
--- OUTSIDE RECORDS SUMMARY | 2023-11-23 16:35 | XMS_ITS | Encounter Summary ---
Author Organization [facility] [place] [address] Care Team Providers Care Major Sales Associate Name Role Phone Lorna Bal APRN Primary Care Provider +1 [phone] Reason for Referral * Diagnostic Test (Routine) - Closed Specialty Diagnoses / Procedures Referred By Contac t Referred To Contact Radiology Diagnoses Spinal abscess Procedures CT Lumbar Spine w Contrast Jamar Dasilva MD [facility] [place] [address] [facility] [place] [address] Referral ID Status Reason Start Date Expiration Date V isits Requested Visits Authorized [id number] Closed Specialty Service Requested 09/25/2022 03/27/2024 1 1 Reason for Visit * Diagnostic Test (Routine) - Closed Specialty Diagnoses / Procedures Referred By Contac t Referred To Contact Radiology Diagnoses Spinal abscess Procedures CT Lumbar Spine w Contrast Jamar Dasilva MD [facility] [place] [address] [facility] [place] [address] Referral ID Status Reason Start Date Expiration Date V isits Requested Visits Authorized [id number] Closed Specialty Service Requested 09/25/2022 03/27/2024 1 1 Encounter Details Date Type Department Care Team (Latest Contact Info) Description 09/26/2022 10:24 AM EDT - 09/26/2022 12:12 PM EDT Hospital [place] [address] Jamar Dasilva MD [facility] [place] [address] Spinal abscess Discharge Disposition: Home [...] EDT TH Visit (TeleHealth) Infectious Disease at [place] [phone] Lilli Joy APRN [facility] [place] [address] 12/03/2023 12:30 PM EDT Office Visit Infectious Disease at [place] [phone] Hollie Ambriz MD [facility] [place] [address] 12/03/2023 2:30 PM EDT Hospital Encounter Radiology at [place] [phone] Andrade Melvin MD [facility] DR [place]ION[place] [address] documented as of this encounter Procedures Procedure [...] have questions please contact the health career services representative that requested your imaging first. ? Narrative [...] who have questions please contactthe health career services representative that requested your imaging first. Jamar Dasilva [...] mLs documented in this encounter Care Teams Major Sales Associate Relationship Specialty Start Date End Date Lorna Bal, BRICK TESTER [address] [place] [address] PCP - General Family Medicine 05/27/18 documented as of this encounter
--- OUTSIDE RECORDS SUMMARY | 2023-11-23 16:35 | XMS_ITS | Encounter Summary ---
Author Organization [facility] [place] [address] Care Team Providers Care Gem Technician Name Role Phone Lorna Bal APRN Primary Care Provider +1 -[phone] Encounter Details Date Type Department Care Team (Late st Contact Info) Description 09/25/2022 Telephone [place] [address] Valentina Stanton Social History Tobacco Use Types [...] EDT TH Visit (TeleHealth) Infectious Disease at [place] [phone] Lilli Joy APRN [facility] [place] [address] 12/03/2023 12:30 PM EDT Office Visit Infectious Disease at [place] [phone] Hollie Ambriz MD [facility] [place] [address] 12/03/2023 2:30 PM EDT Hospital Encounter Radiology at [place] [phone] Andrade Melvin MD [facility] [place] [address] documented as of this encounter Visit Diagnoses Not on filedocumented in this encounter Care Teams Gem Technician Relationship Specialty Start Date End Date Lorna Bal APRN [address] [place] [address] PCP - General Family Medicine 05/27/18 documented as of this encounter
--- OUTSIDE RECORDS SUMMARY | 2023-11-23 16:35 | XMS_ITS | Encounter Summary ---
Author Organization [facility] [place] [address] Care Team Providers Care Casualty Insurance Claim Adjuster Name Role Phone Lorna Bal APRN Primary Care Provider +1 -[phone] Reason for Referral * Consultation (Routine) - Authorized Specialty Diagnoses / Procedures Referred By Contac t Referred To Contact Wound Care Diagnoses Osteomyelitis, unspecified site, unspecified type Spinal cord abscess Lorna Bal APRN [address] [place] [address] [facility] [place] [address] Referral ID Status Reason Start Date Expiration Date Visits Requested Visits Authorized [id number] Authorized Consult, Test & Treat PCP Updated and/or Approved 12/26/2022 12/26/2023 12 12 Encounter Details Date Type Department Care Team (Latest Contact Info) Description 12/26/2022 Transcribe Orders eDH Incoming Referrals [phone] Lorna Bal APRN [address] [place] [address] Osteomyelitis, unspecified site, unspecified type; Spinal cord abscess Social History Tobacco Use Types Packs/Day Years Used Date Smoking Tobacco: Never Smokeless Tobacco: Never Comments:NO SMOKERS IN THE H OME Alcohol Use Standard Drinks/Week Comments No 0 (1 standard drink = 0.6 oz pur e alcohol) [facility] Inpatient Questions Answer Date Recorded Does Anyone [...] EDT TH Visit (TeleHealth) [place] [address] Lilli Joy APRN [facility] [place] [address] 12/03/2023 12:30 PM EDT Office Visit Infectious Disease at [place] [phone] Hollie Ambriz MD [facility] [place] [address] 12/03/2023 2:30 PM EDT Hospital Encounter Radiology at [address] Andrade Melvin MD [facility] [place] [address] Scheduled Referrals Name Type Priority Associated Diagnoses Orde r Schedule Referral to Plastic Surgery Outpatient Referral Routine Osteomyelitis, unspecified site, unspecified type Spinal cord abscess Ordered: 12/26/2022 documented as of this encounter Visit Diagnoses Diagnosis Osteomyelitis, unspecified site, unspecified type Spinal cord abscess Acute osteomyelitis, other specified site documented in this encounter Care Teams Casualty Insurance Claim Adjuster Relationship Specialty Start Date End Date Lorna Bal APRN [address] [place] [address] PCP - General Family Medicine 05/27/18 documented as of this encounter
--- OUTSIDE RECORDS SUMMARY | 2023-11-23 16:35 | XMS_ITS | Encounter Summary ---
[place] [address] Care Team Providers Care Rivet Bucker Name Role Phone Lorna Bal APRN Primary Care Provider +1 -[phone] Reason for Referral * Consultation (Urgent) - Authorized Specialty Diagnoses / Procedures Referred By Contac t Referred To Contact Infectious Diseases Diagnoses Osteomyelitis, unspecified site, unspecified type Spinal cord abscess Lorna Bal APRN [address] [place] [address] [facility] Infectious Dis [address] [place] [address] Referral ID Status Reason Start Date Expiration Date Visits Requested Visits Authorized [id number] Authorized Consult, Test & Treat PCP Updated and/or Approved 12/23/2022 12/23/2023 6 6 Encounter Details Date Type Department Care Team (Latest Contact Info) Description 12/23/2022 Transcribe Orders eDH Incoming Referrals [phone] Lorna Bal APRN [address] [place] [address] Osteomyelitis, unspecified site, unspecified type; [...] EDT TH Visit (TeleHealth) Infectious Disease at [address] Lilli Joy APRN [facility] [place] [address] 12/03/2023 12:30 PM EDT Office Visit Infectious Disease at [place] [phone] Hollie Ambriz MD [facility] [place] [address] 12/03/2023 2:30 PM EDT Hospital Encounter Radiology at [address] Andrade Melvin MD [facility] [place] [address] Scheduled Referrals Name Type Priority Associated Diagnoses Order Schedule Referral to Infectious Disease and [facility] Outpatient Referral Urgent Osteomyelitis, unspecified site, unspecified type Spinal cord abscess Ordered: 12/23/2022 documented as of this encounter Visit Diagnoses Diagnosis Osteomyelitis, unspecified site, unspecified type Spinal cord abscess Acute osteomyelitis, other specified site documented in this encounter Care Teams Rivet Bucker Relationship Specialty Start Date End Date Lorna Bal APRN [address] [place] [address] PCP - General Family Medicine 05/27/18 documented as of this encounter
--- OUTSIDE RECORDS SUMMARY | 2023-11-23 16:35 | XMS_ITS | Encounter Summary ---
Author Organization [facility] Address [facility] [place] [address] Care Team Providers Care Top Dyeing Machine Loader Name Role Phone Lorna Bal APRN Primary Care Provider +1 -[phone] Encounter Details Date Type Department Care Team (Late st Contact Info) Description 04/29/2023 Notes [place] [address] George Tipton MD [facility] [place] [address] Social History Tobacco Use Types Packs/Day Years [...] from 04/[address] Augustin(Neurosurgeon, [facility]) and talked to medical research scientist. According to her the surgeon reviewed the [...] Visit (TeleHealth) Infectious Disease at [place] [phone] Lilli Joy APRN [facility] [place] [address] 12/03/2023 12:30 PM EDT Office Visit Infectious Disease at [place] [phone] Hollie Ambriz MD [facility] [place] [address] 12/03/2023 2:30 PM EDT Hospital Encounter Radiology at [place] [phone] Andrade Melvin MD [facility] [place] [address] documented as of this encounter Visit Diagnoses Not on filedocumented in this encounter Care Teams Top Dyeing Machine Loader Relationship Specialty Start Date End Date Lorna Bal APRN [address] [place] [address] PCP - General Family Medicine 05/27/18 documented as of this encounter
--- OUTSIDE RECORDS SUMMARY | 2023-11-23 16:35 | XMS_ITS | Encounter Summary ---
Author Organization [facility] [place] [address] Care Team Providers Care Sludge Control Attendant Name Role Phone Lorna Bal APRN Primary Care Provider +1 -[phone] Reason for Referral * Diagnostic Test (Routine) - Closed Specialty Diagnoses / Procedures Referred By Contac t Referred To Contact Radiology Diagnoses Spinal abscess Procedures CT Lumbar Spine w Contrast George Tipton MD [facility] [place] [address] [facility] [place] [address] Referral ID Status Reason Start Date Expiration Date V isits Requested Visits Authorized [id number] Closed Specialty Service Requested 04/15/2023 10/14/2024 1 1 Encounter Details Date Type Department Care Team (Late st Contact Info) Description 04/15/2023 Notes [place] [address] George Tipton MD [facility] [place] [address] Social History Tobacco Use Types [...] EDT TH Visit (TeleHealth) [place] [address] Lilli Joy APRN [facility] [place] [address] 12/03/2023 12:30 PM EDT Office [place] [address] Hollie Ambriz MD [facility] [place] [address] 12/03/2023 2:30 PM EDT Hospital Encounter Radiology at [facility] [place] [address] Andrade Melvin MD [facility] [place] [address] documented as of this encounter Results * [...] who have questions please contact the health neurocritical care physician that requested your imaging first. ? Narrative [...] patients who have questions please contactthe health neurocritical care physician that requested your imaging first. Keri Trevino MD IMG CT ORDERABLES documented in this encounter Visit Diagnoses Diagnosis Spinal abscess- Primary Acute osteomyelitis, other specified site Spinal abscess Acute osteomyelitis, other specified site documented in this encounter Care Teams Sludge Control Attendant Relationship Specialty Start Date End Date Lorna Bal APRN [address] [place] [address] PCP - General Family Medicine 05/27/18 documented as of this encounter
--- OUTSIDE RECORDS SUMMARY | 2023-11-23 16:35 | XMS_ITS | Encounter Summary ---
Author Organization [facility] [place] [address] Care Team Providers Care Support Assistant Name Role Phone Lorna Bal APRN Primary Care Provider +1 -[phone] Encounter Details Date Type Department Care Team (Late st Contact Info) Description 09/24/2022 Telephone [place] [address] Valentina Stanton Social History Tobacco Use Types [...] EDT TH Visit (TeleHealth) Infectious Disease at [place] [phone] Lilli Joy APRN [facility] [place] [address] 12/03/2023 12:30 PM EDT Office Visit Infectious Disease at [place] [phone] Hollie Ambriz MD [facility] [place] [address] 12/03/2023 2:30 PM EDT Hospital Encounter Radiology at [place] [phone] Andrade Melvin MD [facility] [place] [address] documented as of this encounter Visit Diagnoses Not on filedocumented in this encounter Care Teams Support Assistant Relationship Specialty Start Date End Date Lorna Bal APRN [address] [place] [address] PCP - General Family Medicine 05/27/18 documented as of this encounter
--- OUTSIDE RECORDS SUMMARY | 2023-11-23 16:35 | XMS_ITS | Encounter Summary ---
Author Organization [facility] Address [facility] [place] [address] Care Team Providers Care Human Services Manager Name Role Phone Lorna Bal APRN Primary Care Provider +1 [phone] Reason for Visit * Consultation (Urgent) - Authorized Specialty Diagnoses / Procedures Referred By Contmonica t Referred To Contact Infectious Diseases Diagnoses Osteomyelitis, unspecified site, unspecified type Spinal cord abscess Lorna Bal APRN [address] [place] [address] [facility] Infectious Dis [address] [place] [phone] Referral ID Status Reason Start Date Expiration Date Visits Requested Visits Authorized [id number] Authorized Consult, Test & Treat PCP Updated and/or Approved 12/23/2022 12/23/2023 6 6 Encounter Details Date Type Department Care Team (Late st Contact Info) Description 01/29/2023 9:30 AM EDT Office [place] [address] George Tipton MD [facility] [place] [address]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 Followed up with in [place]. MRI was not possible sec. To hardware. CRP/ESR was trending upwards. NSG referred her to [facility] for surgery and patient is scheduled for a procedure on 02/11/23. Patient presents to ID clinic to reestablish care in anticipation that she will need antibiotics after her surgery since she will have new hardware in setting of chronic infection. Patient is accompanied by 2 caregivers. According to the caregivers patient lives in a house in [place] with another roommate. They have been taking [...] All Drainage Procedures 06/25/2022 Mich Martino MD [facility] INTERVENTION[facility] RAD IR ALL DRAINAGE PROCEDURES 07/04/2022 IR All Drainage Procedures 07/04/2022 Mich Martino MD [facility] RAD IR ALL DRAINAGE PROCEDURES 07/24/2022 IR All Drainage Procedures 07/24/2022 Anurag Kumar MD [facility] RAD IR ALL DRAINAGE PROCEDURES 09/26/2022 IR All Drainage Procedures 09/26/2022 Jamaal Jenkins, DO [facility] INTER[facility] RAD IR DRAIN CHECK/CHANGE/REMOVE 07/01/2022 IR Drain Check/Change/Remove 07/01/2022 Jamaal Jenkins, DO [facility] RAD IR DRAIN CHECK/CHANGE/REMOVE 08/11/2022 IR Drain Check/Change/Remove 08/11/2022 Piter Self MD [facility] INTER[facility]IONL RAD IR DRAIN CHECK/CHANGE/REMOVE 08/25/2022 IR Drain Check/Change/Remove 08/25/2022 Jamaal Jenkins, DO [facility] INTER[facility] RAD IR DRAIN CHECK/CHANGE/REMOVE 09/10/2022 IR Drain Check/Change/Remove 09/10/2022 Mich Martino MD [facility] RAD PRO APPLY OF HIP CASTS, TWO LEGS 08/15/2010 CAST APPLICATION, HIP SPICA, BOTH LEGS performed by BARRERA OLIVER at [facility] MAIN OR PRO I&D, POST SPINE, LUMB/SACR/LUMBOSAC N/A 05/20/2014 @I & D, OPEN, DEEP ABSCESS, LUMBAR, SACRAL, LUMBOSACRAL performed by Freddy Isbell MD at [facility] MAIN OR PRO I&D, POST SPINE, LUMB/SACR/LUMBOSAC N/A 05/26/2014 @I & D, OPEN, DEEP ABSCESS, LUMBAR, SACRAL, LUMBOSACRAL performed by Freddy Isbell MD at [facility] MAIN OR PRO IMPACT TOOTH REMOV COMP BONY N/A 06/14/2018 SURGICAL EXTRACTIONS, REMOVAL OF IMPACTED TOOTH, COMPLETELY BONY (WRVU 1.93) performed by Keith Cotton MD at [facility] OSC PRO OSTEOTOMY FEMUR SHAFT/SUPRACONDY 08/15/2010 ??OSTEOTOMY, FEMUR SHAFT OR SUPRACONDYLAR W/O FIXATION performed by BARRERA OLIVER at [facility] MAIN OR PRO RECONSTRUC HIP SOCKET, RESEC FEM HEAD 08/15/2010 ??ACETABULOPLASTY (GIRDLESTONE), RESECTION FEMORAL HEAD, BILATERAL performed by BARRERA OLIVER [facility] MAIN OR PRO REMOVAL DEEP IMPLANT 08/15/2010 REMOVAL IMPLANT, DEEP, BRUNO performed by BARRERA OLIVER at [facility] MAIN OR PRO REMOVAL ERUPTED TOOTH WITH ELEVATION OF MUCOPERIOSTEAL FLAP N/A 06/14/2018 SURGICAL EXTRACTIONS REQUIRING ELEVATION OF MUCOPERIOSTEAL FLAP AND REMOVAL OF BONE OR SECTION OF TOOTH (WRVU 1.09) performed by Keith Cotton MD at [facility] OSC PRO REMOVE INFUSN DEVICE/PUMP N/A 05/11/2014 REMOVAL OF SPINE INFUSION PUMP performed by Jamaal Samuel MD at [facility] MAIN OR PRO REMOVE SPINAL CANAL CATHETER N/A 05/11/2014 REMOVAL OF INTRATHECAL OR EPIDURAL CATHETER performed by Jamaal Samuel MD at [facility] MAIN OR PRO REPR, DURAL/CSF LEAK, NOT REQ LAMINECTOMY N/A 05/20/2014 @REPAIR DURAL\CSF LEAK,NOT REQUIRING LAMINECTOMY performed by Freddy Isbell MD at [facility] MAIN OR Allergies: Allergies Allergen Reactions Fluoxetine Other (See Comments) HIVES, HEART RACES Tegaderm [Transparent Dressings] Itching and Dermatitis Please use [id number] Penicillins Immunization History: Immunization History Administered Date(s) Administered Influenza Vaccine (Novel) [id number], Injectable 02/25/2009 Influenza Vaccine w/Preservative, Split 04/25/2011 Influenza Vaccine, Whole 03/27/2009 Family History: Family History Problem Relation Age of Onset Cancer Maternal Grandmother Heart Disease Maternal Grandfather Social History: Hx of CP, lives in a mcf[facility] with care givers. ROS: 14 point ROS [...] Patient is being evaluated by neurosurgery in [facility] and is scheduled to undergo revision lumbar interbody fusion. We are evaluating the patient in anticipation that she will need antibiotics postprocedure. After discussing with the caregivers we decided to hold Bactrim as it will increase the yield of intraoperative cultures. Once surgery is performed in [facility] patient will need ID follow-up inpatient and then her care can be transitioned over to our clinic since it is closer to [place]. At this time Bactrim will be held [...] Dr. Nikolay Tipton MD Infectious Diseases Fellow-[id number] [facility] Pager: [phone] 01/28/2023 10:38 AM * Nikolay Ambriz MD - 01/29/2023 9:30 AM EDT ID [...] EDT TH Visit (TeleHealth) [place] [address] Lilli Joy APRN [facility] [place] [address] 12/03/2023 12:30 PM EDT Office Visit Infectious Disease at [place] [phone] Nikolay Ambriz MD [facility] [place] [address] 12/03/2023 2:30 PM EDT Hospital Encounter Radiology at [place] [phone] Andrade Melvin MD [facility] [place] [address] documented as of this encounter Visit Diagnoses Diagnosis assisted 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 Encounter for long-term (current) use of antibiotics documented in this encounter Care Teams Human Services Manager Relationship Specialty Start Date End Date Lorna Bal APRN [address] [place] [address] PCP - General Family Medicine 05/27/18 documented as of this encounter
--- OUTSIDE RECORDS SUMMARY | 2023-11-23 16:35 | XMS_ITS | Encounter Summary ---
[place] [address] Care Team Providers Care Insulation Cupola Charger Name Role Phone Lorna Bal APRN Primary Care Provider +1 [phone] Reason for Referral * Consultation (Routine) - Authorized Specialty Diagnoses / Procedures Referred By Contmonica t Referred To Contact Gastroenterology Diagnoses Constipation, unspecified constipation type constipation Lorna Bal APRN [address] [place] [address] [facility] [address] [place] [phone] Referral ID Status Reason Start Date Expiration Date Visits Requested Visits Authorized [id number] Authorized Consult, Test & Treat PCP Updated and/or Approved 01/30/2023 01/30/2024 12 12 Encounter Details Date Type Department Care Team (Latest Contact Info) Description 01/30/2023 Transcribe Orders eDH Incoming Referrals [phone] Lorna Bal APRN [address] [place], [place] [id number] Constipation, unspecified constipation type Social History Tobacco [...] EDT TH Visit (TeleHealth) [place] [address] Lilli Joy APRN [facility] [place] [address] 12/03/2023 12:30 PM EDT Office [place] [address] Hollie Ambriz MD [facility] [address] 12/03/2023 2:30 PM EDT Hospital Encounter Radiology at [place] [address] Andrade Melvin MD [facility] [place] [address] Scheduled Referrals Name Type Priority Associated Diagnoses Order Schedule Referral to Gastroenterology Outpatient Referral Routine Constipation, unspecified constipation type Ordered: 01/30/2023 documented as of this encounter Visit Diagnoses Diagnosis Constipation, unspecified constipation type documented in this encounter Care Teams Insulation Cupola Charger Relationship Specialty Start Date End Date Lorna Bal APRN [address] [place] [address] PCP - General Family Medicine 05/27/18 documented as of this encounter
--- OUTSIDE RECORDS SUMMARY | 2023-11-23 16:35 | XMS_ITS | Encounter Summary ---
Author Organization [facility] Address [facility] [address] Care Team Providers Care Keeper Helper Name Role Phone Lorna Bal APRN Primary Care Provider [phone] [phone] Encounter Details Date Type Department Care Team (Late st Contact Info) Description 01/29/2023 1:00 PM EDT Office [place] [phone] Reji Macdonald MD [facility] [place] [address] Spinal abscess Social History Tobacco Use Types [...] her postoperative care for planned operation and [place]. She is here with her caregivers but her mother is her legal guardian. She has been seen at [facility] been seen by the orthopedic team and infectious diseases for extended periods of time. It is unclear as to what the long-term plan was for management of thisbut eventually apparently she made it to [place] after referral by infectious disease and then subsequently was referred to [place]. At that point time she was seen [...] All Drainage Procedures 06/25/2022 Mich Martino MD [facility] INTERVENTIONL RAD IR ALL DRAINAGE PROCEDURES 07/04/2022 IR All Drainage Procedures 07/04/2022 Mich Martino MD [facility] RAD IR ALL DRAINAGE PROCEDURES 07/24/2022 IR All Drainage Procedures 07/24/2022 Anurag Kumar MD [facility] RAD IR ALL DRAINAGE PROCEDURES 09/26/2022 IR All Drainage Procedures 09/26/2022 Jamaal Jenkins, DO [facility] RAD IR DRAIN CHECK/CHANGE/REMOVE 07/01/2022 IR Drain Check/Change/Remove 07/01/2022 Jamaal Jenkins, DO [facility] RAD IR DRAIN CHECK/CHANGE/REMOVE 08/11/2022 IR Drain Check/Change/Remove 08/11/2022 Piter Self MD [facility] INTER[facility] RAD IR DRAIN CHECK/CHANGE/REMOVE 08/25/2022 IR Drain Check/Change/Remove 08/25/2022 Jamaal Jenkins, DO [facility] RAD IR DRAIN CHECK/CHANGE/REMOVE 09/10/2022 IR Drain Check/Change/Remove 09/10/2022 Mich Martino MD [facility] RAD PRO APPLY OF HIP CASTS, TWO LEGS 08/15/2010 CAST APPLICATION, HIP SPICA, BOTH LEGS performed by BARRERA OLIVER at [facility] MAIN OR PRO I&D, POST SPINE, LUMB/SACR/LUMBOSAC N/A 05/20/2014 @I & D, OPEN, DEEP ABSCESS, LUMBAR, SACRAL, LUMBOSACRAL performed by Freddy Isbell MD at [facility] MAIN OR PRO I&D, POST SPINE, LUMB/SACR/LUMBOSAC N/A 05/26/2014 @I & D, OPEN, DEEP ABSCESS, LUMBAR, SACRAL, LUMBOSACRAL performed by Freddy Isbell MD at [facility] MAIN OR PRO IMPACT TOOTH REMOV COMP BONY N/A 06/14/2018 SURGICAL EXTRACTIONS, REMOVAL OF IMPACTED TOOTH, COMPLETELY BONY (WRVU 1.93) performed by Keith Cotton MD at [facility] OSC PRO OSTEOTOMY FEMUR SHAFT/SUPRACONDY 08/15/2010 ??OSTEOTOMY, FEMUR SHAFT OR SUPRACONDYLAR W/O FIXATION performed by BARRERA OLIVER at [facility] MAIN OR PRO RECONSTRUC HIP SOCKET, RESEC FEM HEAD 08/15/2010 ??ACETABULOPLASTY (GIRDLESTONE), RESECTION FEMORAL HEAD, BILATERAL performed by BARRERA OLIVER [facility] MAIN OR PRO REMOVAL DEEP IMPLANT 08/15/2010 REMOVAL IMPLANT, DEEP, BRUNO performed by BARRERA OLIVER at [facility] MAIN OR PRO REMOVAL ERUPTED TOOTH WITH ELEVATION OF MUCOPERIOSTEAL FLAP N/A 06/14/2018 SURGICAL EXTRACTIONS REQUIRING ELEVATION OF MUCOPERIOSTEAL FLAP AND REMOVAL OF BONE OR SECTION OF TOOTH (WRVU 1.09) performed by Keith Cotton MD at [facility] OSC PRO REMOVE INFUSN DEVICE/PUMP N/A 05/11/2014 REMOVAL OF SPINE INFUSION PUMP performed by Jamaal Samuel MD at [facility] MAIN OR PRO REMOVE SPINAL CANAL CATHETER N/A 05/11/2014 REMOVAL OF INTRATHECAL OR EPIDURAL CATHETER performed by Jamaal Samuel MD at [facility] MAIN OR PRO REPR, DURAL/CSF LEAK, NOT REQ LAMINECTOMY N/A 05/20/2014 @REPAIR DURAL\CSF LEAK,NOT REQUIRING LAMINECTOMY performed by Freddy Isbell MD at [facility] MAIN OR Social History Socioeconomic History Marital [...] [Transparent Dressings] Itching and Dermatitis Please use [id number] Cyclobenzaprine Other Reaction(s): Not available Penicillins Current [...] TH Visit (TeleHealth) [place] [address] Lilli Joy APRN [facility] [place] [address] 12/03/2023 12:30 PM EDT Office Visit Infectious Disease at [place] [phone] Hollie Ambriz MD [facility] [address] 12/03/2023 2:30 PM EDT Hospital Encounter Radiology at [place] [phone] Andrade Melvin MD [facility] [place] [address] documented as of this encounter Visit Diagnoses Diagnosis Spinal abscess Acute osteomyelitis, other specified site documented in this encounter Care Teams Keeper Helper Relationship Specialty Start Date End Date Lorna Bal APRN [address] [place] [address] PCP - General Family Medicine 05/27/18 documented as of this encounter
--- OUTSIDE RECORDS SUMMARY | 2023-11-23 16:35 | XMS_ITS | Encounter Summary ---
Author Organization [facility] [place] [address] Care Team Providers Care Rn Clinical Quality Name Role Phone Lorna Bal APRN Primary Care Provider +1 [phone] Encounter Details Date Type Department Care Team [...] (TeleHealth) Infectious Disease at [facility] [place] [phone] Lilli Joy APRN [facility] [place] [address] 12/03/2023 12:30 PM EDT Office Visit Infectious Disease at [place] [phone] Hollie Ambriz MD [facility] [place] [address] 12/03/2023 2:30 PM EDT Hospital [place] [address] Andrade Melvin MD [facility] [place] [address] documented as of this encounter Visit Diagnoses Not on filedocumented in this encounter Care Teams Rn Clinical Quality Relationship Specialty Start Date End Date Lorna Bal APRN [address] [place] [address] PCP - General Family Medicine 05/27/18 documented as of this encounter
--- OUTSIDE RECORDS SUMMARY | 2023-11-23 16:35 | XMS_ITS | Encounter Summary ---
Author Organization [place] [address] Care Team Providers Care Baseball Coach Name Role Phone Lorna Bal APRN Primary Care Provider +1 -[phone] Encounter Details Date Type Department Care Team (Late st Contact Info) Description 06/17/2023 Telephone [place] [phone] Tobi Luna Social History Tobacco Use Types Packs/Day Years Used Date Smoking Tobacco: Never Smokeless Tobacco: Never Comments:NO SMOKERS IN THE H OME Alcohol Use Standard Drinks/Week Comments No 0 (1 standard drink = 0.6 oz pur e alcohol) [facility] Inpatient Questions Answer Date Recorded Does Anyone [...] - 06/17/2023 10:02 AM EST Tana Cavazos [id number] Diagnosis/Indication: Chronic constipation and anemia Please review [...] your procedure. Who will likely be your car pick up driver for the procedure? *Please Verify the [...] EDT TH Visit (TeleHealth) Infectious Disease at [address] Lilli Joy APRN [facility] [address] [place] [address] 12/03/2023 12:30 PM EDT Office Visit Infectious Disease at [place] [phone] Hollie Ambriz MD [facility] [place] [address] 12/03/2023 2:30 PM EDT Hospital Encounter Radiology at [place] [phone] Andrade Melvin MD [facility] INTER[place]ION[place] [address] documented as of this encounter Visit Diagnoses Not on filedocumented in this encounter Care Teams Baseball Coach Relationship Specialty Start Date End Date Lorna Bal APRN [address] [place] [address] PCP - General Family Medicine 05/27/18 documented as of this encounter
--- OUTSIDE RECORDS SUMMARY | 2023-11-23 16:35 | XMS_ITS | Encounter Summary ---
Author Organization [facility] [place] [address] Care Team Providers Care Airport Attendant Name Role Phone Lorna Bal APRN Primary Care Provider +1 -[phone] Encounter Details Date Type Department Care Team (Latest Contact Info) Description 09/26/2022 Travel Social History Tobacco Use Types Packs/Day Years Used Date Smoking Tobacco: Never Smokeless Tobacco: Never Comments:NO SMOKERS IN THE H OME Alcohol Use Standard Drinks/Week Comments No 0 (1 standard drink = 0.6 oz pur e alcohol) [facility] Inpatient Questions Answer Date Recorded Does Anyone [...] (TeleHealth) Infectious Disease at [facility] [phone] Lilli Joy APRN [facility] [place] [address] 12/03/2023 12:30 PM EDT Office Visit Infectious Disease at [place] [phone] Hollie Ambriz MD [facility] [address] 12/03/2023 2:30 PM EDT Hospital En[place] [address] Andrade Melvin MD [facility] [place] [address] documented as of this encounter Visit Diagnoses Not on filedocumented in this encounter Care Teams Airport Attendant Relationship Specialty Start Date End Date Lorna Bal APRN [address] [place] [address] PCP - General Family Medicine 05/27/18 documented as of this encounter
--- OUTSIDE RECORDS SUMMARY | 2023-11-23 16:35 | XMS_ITS | Encounter Summary ---
Author Organization [facility] [place] [address] Care Team Providers Care Continuing Education Director Name Role Phone Lorna Bal APRN Primary Care Provider +1 -[phone] Encounter Details Date Type Department Care Team (Late st Contact Info) Description 06/16/2023 Telephone [place] [phone] Martha Kennedy Social History Tobacco Use Types [...] EDT TH Visit (TeleHealth) Infectious Disease at [place] [phone] Lilli Joy APRN [facility] [place] [address] 12/03/2023 12:30 PM EDT Office Visit Infectious Disease at [place] [phone] Hollie Ambriz MD [facility] [place] [address] 12/03/2023 2:30 PM EDT Hospital Encounter Radiology at [address] Andrade Melvin MD [facility] [place] [address] documented as of this encounter Visit Diagnoses Not on filedocumented in this encounter Care Teams Continuing Education Director Relationship Specialty Start Date End Date Lorna Bal APRN [address] [place] [address] PCP - General Family Medicine 05/27/18 documented as of this encounter
--- OUTSIDE RECORDS SUMMARY | 2023-11-23 16:35 | XMS_ITS | Encounter Summary ---
Author Organization [facility] [place] [address] Care Team Providers Care Drying Supervisor Name Role Phone Lorna Bal APRN Primary Care Provider +1 -[phone] Encounter Details Date Type Department Care Team (Late st Contact Info) Description 09/24/2022 Telephone [place] [phone] Sergey Keane MD [facility] [place] [address] Social History Tobacco Use Types Packs/Day Years Used Date Smoking Tobacco: Never Smokeless Tobacco: Never Comments:NO SMOKERS IN THE H OME Alcohol Use Standard Drinks/Week Comments No 0 (1 standard drink = 0.6 oz pur e alcohol) [facility] Inpatient Questions Answer Date Recorded Does Anyone [...] stable to go to her appt in [place] tomorrow with NSG to show them the lesions and see if they can do something about it. I discussed I had limited ability to assist and that a change of antibiotics without new cultures and drainage was not a great idea and the I would be happy to work with either IR here or NSG in [place] to assist. Discussed warning signs to present to the ED. I suspect she just has continued inflammation of the hardware and now that the drain is out it is reaccumulating. Likely will need a chronic drain or surgery. This will be up to NSG on [place]. * Telephone Encounter - Maryanne Sarabia RN [...] Tana has a neurosurgery appt tomorrow in [place]. Mom can be reached at [phone] until 5 pm. Then after 5 pm call Fannie Villarreal [phone]. Note forwarded to Dr. Gerber Dasilva and Dr. Sergey Doan. documented in this encounter Plan of Treatment Upcoming Encounters Date Type Department Care Team (Late st Contact Info) Description 11/25/2023 2:00 PM EDT TH Visit (TeleHealth) Infectious Disease at [address]1000 Lilli Joy APRN [facility] DR INFECTI[place] [address] 12/03/2023 12:30 PM EDT Office Visit [place] [address] Hollie Ambriz MD [facility] INFECTIOUS [place] [address] 12/03/2023 2:30 PM EDT Hospital Encounter Radiology at [place] [phone] Andrade Melvin MD [facility] DR INTERVENTIONAL [place] [address] documented as of this encounter Visit Diagnoses Not on filedocumented in this encounter Care Teams Drying Supervisor Relationship Specialty Start Date End Date Lorna Bal APRN [address] [place] [address] PCP - General Family Medicine 05/27/18 documented as of this encounter
--- OUTSIDE RECORDS SUMMARY | 2023-11-23 16:35 | XMS_ITS | Encounter Summary ---
Author Organization [place] [address] Care Team Providers Care Valve Setter Name Role Phone Lorna Bal APRN Primary Care Provider +1 -[phone] Encounter Details Date Type Department Care Team (Late st Contact Info) Description 10/27/2022 Telephone [place] [phone] Halima García Social History Tobacco Use Types [...] Visit (TeleHealth) Infectious Disease at [place] [address] Lilli Joy APRN [facility] [place] [address] 12/03/2023 12:30 PM EDT Office Visit Infectious Disease at [place] [address] Hollie Ambriz MD [facility] [place] [address] 12/03/2023 2:30 PM EDT Hospital Encounter Radiology at [address]1000 Andrade Mlevin MD [facility] [place] [address] documented as of this encounter Visit Diagnoses Not on filedocumented in this encounter Care Teams Valve Setter Relationship Specialty Start Date End Date Lorna Bal APRN [address] [place] [address] PCP - General Family Medicine 05/27/18 documented as of this encounter
--- OUTSIDE RECORDS SUMMARY | 2023-11-23 16:35 | XMS_ITS | Encounter Summary ---
Author Organization [facility] Address [facility] [place] [address] Care Team Providers Care Steamboat Inspector Name Role Phone Lorna Bal APRN Primary Care Provider [phone] Reason for Visit * Reason Comments Follow-up Encounter Details Date Type Department Care Team (Late st Contact Info) Description 03/26/2023 10:00 AM EST Office [place] [address] George Tipton MD [facility] [place] [address] 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 Dx) Social History Tobacco [...] remained on bactrim. Followed up with in [place]. MRI was not possible sec. To hardware. CRP/ESR was trending upwards. NSG referred her to [facility] for surgery. The patient went [...] Tipton MD Infectious Diseases Fellow- [id number] Pager: [phone] 03/25/2023 4:00 PM Plan discussed with Dr. Gabo Trevino This note was created using [employer]) voice recognition software. I have seen the [...] 1-2 weeks from initiation. Gabo Trevino MD [facility] Infectious Disease * Olinda Barahona RN - [...] 1-2 weeks from initiation. Gabo Trevino MD [facility] Infectious Disease documented in this encounter Plan of Treatment Upcoming Encounters Date Type Department Care Team (Late st Contact Info) Description 11/25/2023 2:00 PM EDT TH Visit (TeleHealth) Infectious Disease at [place] [phone] Lilli Joy APRN [facility] [place] [address] 12/03/2023 12:30 PM EDT Office Visit Infectious Disease at [place] [phone] Hollie Ambriz MD [facility] [place] [address] 12/03/2023 2:30 PM EDT Hospital Encounter Radiology at [place] [phone] Andrade Melvin MD [facility] [place] [address] Scheduled Orders Name Type Priority Associated Diagnoses [...] 4:20 PM EST) CRP 47.2(H) <=4.9 mg/L [facility] Blood 04/16/2023 4:20 PM EST 04/16/2023 4:28 PM EST Narrative Resulting Agency Comment Spec In Lab Gabo Trevino MD CHEMISTRY ORDERABLE S [facility] [place] [address] * (ABNORMAL) Comprehensive metabolic panel (non-fasting) (04/16/2023 [...] Lab Gabo Trevino MD CHEMISTRY ORDERABLE S [facility] [place] [address] * US Abdomen Limited Hepatology Protocol (03/27/2023 [...] interpretation and agree with the findings, Curt Dozeir MD at 03/27/2023 3:31 PM Thank you for letting us participate in the care of this patient. If you are a health care provider and have any questions regarding this report, please contact the number above. For patients who have questions, please contact the health youth care worker that requested your imaging first. ? Curt Dozier, Staff Physician Electronically Signed Final Report ?? 03/27/2023 03:36 pm Narrative 03/27/2023 3:37 PM EST Abdominal ? (Signed Final 03/27/2023 03:36 pm) PATIENT INFO: ID #: ? [id number] ?: ??[birth year] (27 yrs)(F) Name: ? TANA Freddy CAT ?Visit Date: 03/27/2023 03:21 pm PERFORMED BY: Attending: ?Jacoby GONZALES MD, Curt Langston Performed By: ? Shelby Gardner RDMS Referred By: ?GABO TREVINO Location: ? [place] SERVICE(S) PROVIDED: [facility] - Hepatology Protocol - Abdominal ?[id number] Limited Survey Single Organ or Quadrant - [id number] INDICATIONS: Transaminitis ------ LIVER: ------ Right Lobe [...] 03/27/2023 03:36 pm) PATIENT INFO: ID #: [id number] : [birth year] (27 yrs)(F) Name: TANA SHELTON Visit Date: 03/27/2023 03:21 pm PERFORMED BY: Attending: Jacoby GONZALES MD, Arthur L. Performed By: Shelby Gardner RDMS Referred By: GABO TREVINO Location: [place] SERVICE(S) PROVIDED: [facility] - Hepatology Protocol - Abdominal [id number] Limited Survey Single Organ or Quadrant - [id number] INDICATIONS: Transaminitis ------ LIVER: ------ Right Lobe [...] who have questions, please contact the health youth care worker that requested your imaging first. Curt Dozier, Staff Physician Electronically Signed Final Report 03/27/2023 03:36 pm Gabo Trevino MD IMG US GEN ORDERABL ES * Scan, Peripheral Blood (03/26/2023 11:06 AM EST) Pathologist [facility] Plat Estimate Normal [facility] RBC Morphology Abnormal [facility] Hypochromia Slight [facility] Stomatocytes 1-5 /HPF [facility] Stippled RBCs Present >1/HPF [facility] Blood 03/26/2023 11:0 6 AM EST 03/26/2023 11:21 AM EST Narrative Resulting Agency Comment Spec In Lab George Tipton MD HEMATOLOGY ORDERABLE S [facility] [place] [address] * Differential, Automated (03/26/2023 11:06 AM EST) Pathologist [facility] Neutrophils % 62.0 % [facility] Neutr Abs (ANC) 3.69 1.70 - 6.10 x10(3)/[facility] Lymphocytes % 27.7 % [facility] Lymphocytes Abs 1.6 0.9 - 3.2 x10(3)/[facility] Monocytes % 7.7 % [facility] Monocyte Abs 0.5 0.3 - 0.9 x10(3)/[facility] Eosinophils % 1.8 % [facility] Eosinophils Abs 0.1 0.0 - 0.4 x10(3)/[facility] Basophils % 0.5 % [facility] Basophils Abs 0.0 0.0 - 0.1 x10(3)/[facility] Immature Gran % 0.30 % [facility] Comment: Immature granulocytes(IG's)percentage and absolute count will include metamyelocytes, myelocytes, and promyelocytes. Blood smears from CBCs yielding IG's will be scanned manually for concordance. If this scan disagrees with the automated IG or if promyelocytes are noted, a manual differential will be performed. Debora Gran Abs 0.02 0.00 - 0.04 x10(3)/[facility] Blood 03/26/2023 11:0 6 AM EST 03/26/2023 11:21 AM EST Narrative Resulting Agency Comment Spec In Lab George Tipton MD HEMATOLOGY ORDERABLE S [facility] [place] [address] * (ABNORMAL) Hemogram (03/26/2023 11:06 AM EST) WBC 6.0 4.0 - 9.5 x10(3)/[facility] RBC 3.07(L) 4.00 - 5.21 x10(6)/[facility] Hemoglobin 8.9(L) 11.7 - 15.5 g/dL [facility] Hematocrit 27.5(L) 35.7 - 45.8 % [facility] MCV 89.6 82.6 - 94.4 fL [facility] MCH 29.0 27.1 - 32.0 pg [facility] MCHC 32.4 31.7 - 35.0 g/dL [facility] Platelets 355 145 - 357 x10(3)/[facility] RDWSD 49.0(H) 37.0 - 46.0 [facility] RDWCV 15.0(H) 11.5 - 14.1 % [facility] MPV 9.1 7.6 - 12.9 fL [facility] nRBC % Auto 0.0 % [facility] nRBC Abs Auto 0.000 0.000 - 0.000 x10(3)/[facility] Blood 03/26/2023 11:0 6 AM EST 03/26/2023 11:21 AM EST Narrative Resulting Agency Comment Spec In Lab George Tipton MD HEMATOLOGY ORDERABLE S [facility] [place] [address] * (ABNORMAL) Comprehensive metabolic panel (non-fasting) (03/26/2023 11:06 AM EST) Glucose Lvl 81 65 - 199 mg/dL [facility] Comment:Diabetes: >=200 mg/d L plus symptoms BUN 19(H) 8 - 18 mg/dL [facility] Creatinine 0.27(L) 0.70 - 1.20 mg/dL [facility] Sodium 140 135 - 145 mmol/L [facility] Potassium 4.3 3.5 - 5.0 mmol/L [facility] Comment: Please note: ??Patients with WBC >100,000 may have falsely elevated Potassium levels. ??For accurate Potassium quantification in these patients send serum separator tube (gold top) for subsequent determinations. ??Contact the Clinical Chemistry Laboratory if there are any questions. Chloride 104 98 - 107 mmol/L [facility] CO2 23 22 - 31 mmol/L [facility] Anion Gap 13 5 - 15 mmol/L [facility] Calcium 9.8 8.5 - 10.5 mg/dL [facility] Total Protein 7.7 6.1 - 8.0 g/dL [facility] Albumin 4.3 3.2 - 5.2 g/dL [facility] AST 45(H) 0 - 30 unit/L [facility] ALT 101(H) 0 - 30 unit/L [facility] Alk Phos 378(H) 35 - 105 unit/L [facility] Total Bilirubin <0.2(L) 0.2 - 1.3 mg/dL [facility] Estimated GFR 151 >=60 mL/min/1. 73 m?? [facility] [...] MD CHEMISTRY ORDERABLE S Performing Organization Address [facility] Co de Phone Number [facility] [place] [address] * (ABNORMAL) Sedimentation rate (03/26/2023 11:06 AM EST) Sed Rate 69(H) 2 - 37 mm/hr [facility] Comment: Effective April 06, 2019 new capillary photometric technology has resulted in a change in reference ranges. It is recommended that each ESR result be reviewed with its own age appropriate reference range. Blood 03/26/2023 11:0 6 AM EST 03/26/2023 11:21 AM EST Narrative Resulting Agency Comment Spec In Lab Gabo Trevino MD HEMATOLOGY ORDERABL ES Performing Organization Address [facility] Co de Phone Number [facility] [place] [address] * (ABNORMAL) CRP, acute inflammation (03/26/2023 11:06 AM EST) CRP 86.3(H) <=4.9 mg/L [facility] Blood 03/26/2023 11:0 6 AM EST 03/26/2023 11:21 AM EST Narrative Resulting Agency Comment Spec In Lab Gabo Trevino MD CHEMISTRY ORDERABLE S [facility] [place] [address] documented in this encounter Visit Diagnoses Diagnosis Spinal abscess- Primary Acute osteomyelitis, other specified site Spinal abscess Acute osteomyelitis, other specified site documented in this encounter Care Teams Steamboat Inspector Relationship Specialty Start Date End Date Lorna Bal, FRAME STYLIST [address] [place] [address] PCP - General Family Medicine 05/27/18 documented as of this encounter
--- OUTSIDE RECORDS SUMMARY | 2023-11-23 16:35 | XMS_ITS | Encounter Summary ---
[place] [address] Care Team Providers Care Tower Operator Name Role Phone Lorna Bal APRN Primary Care Provider [phone] [phone] Encounter Details Date Type Department Care Team (Latest Contact Info) Description 04/16/2023 4:05 PM EST Laboratory Appointment Lab [address] [place] [id number] Spinal abscess Social History Tobacco Use Types [...] EDT TH Visit (TeleHealth) [place] [address] Lilli Joy APRN [facility] [address] [place] [address] 12/03/2023 12:30 PM EDT Office [place] [address] Hollie Ambriz MD [facility] [place] [address] 12/03/2023 2:30 PM EDT Hospital [place] [address] Andrade Melvin MD [facility] DR [place] [address] documented as of this encounter Procedures Procedure Name Priority Date/Time Associated Diagnosis Comments HC VENIPUNCTURE Routine 04/16/2023 4:20 PM EST Spinal abscess BILIRUBIN, DIRECT Routine 04/16/2023 4:2 0 PM EST COMPREHENSIVE METABOLIC PANEL (NON-FASTING) Routine 04/16/2023 4:20 PM EST Spinal abscess documented in this encounter Results * Bilirubin, Direct (04/16/2023 4:20 PM EST) Bili, Direct <0.1 0.0 - 0.3 mg/dL [facility] Blood 04/16/2023 4:20 PM EST 04/16/2023 4:28 PM EST Narrative Resulting Agency Comment Spec In Lab George Tipton MD CHEMISTRY ORDERABLES [facility] [place] [address] * (ABNORMAL) Comprehensive metabolic panel (non-fasting) (04/16/2023 4:20 PM EST) Glucose Lvl 79 65 - 199 mg/dL [facility] Comment:Diabetes: >=200 mg/d L plus symptoms BUN 10 8 - 18 mg/dL [facility] Creatinine 0.49(L) 0.70 - 1.20 mg/dL [facility] [...] questions. Chloride 99 98 - 107 mmol/L [facility] CO2 27 22 - 31 mmol/L [facility] Anion Gap 11 5 - 15 mmol/L [facility] Calcium 9.4 8.5 - 10.5 mg/dL [facility] Total Protein 7.9 6.1 - 8.0 g/dL [facility] Albumin 4.2 3.2 - 5.2 g/dL [facility] AST 15 0 - 30 unit/L [facility] ALT 40(H) 0 - 30 unit/L [facility] Alk Phos 320(H) 35 - 105 unit/L [facility] Total Bilirubin <0.2(L) 0.2 - 1.3 mg/dL [facility] Estimated GFR 131 >=60 mL/min/1. 73 m?? [place] [...] MD CHEMISTRY ORDERABLE S Performing Organization Address City/[facility]/ZIP Co de Phone Number [facility] [place] [address] * (ABNORMAL) CRP, acute inflammation (04/16/2023 4:20 PM EST) CRP 47.2(H) <=4.9 mg/L [facility] Blood 04/16/2023 4:20 PM EST 04/16/2023 4:28 PM EST Narrative Resulting Agency Comment Spec In Lab Keri Trevino MD CHEMISTRY ORDERABLE S Performing Organization Address City/[facility]/ZIP Co de Phone Number [facility] [place] [address] documented in this encounter Visit Diagnoses Diagnosis Spinal abscess Acute osteomyelitis, other specified site documented in this encounter Care Teams Tower Operator Relationship Specialty Start Date End Date Lorna Bal APRN [address] [place] [address] PCP - General Family Medicine 05/27/18 documented as of this encounter
--- OUTSIDE RECORDS SUMMARY | 2023-11-23 16:35 | XMS_ITS | Encounter Summary ---
Author Organization [facility] [place] [address] Care Team Providers Care Campus Administrator Name Role Phone Lorna Bal APRN Primary Care Provider [phone] [phone] Reason for Visit * Consultation (Routine) - Authorized Specialty Diagnoses / Procedures Referred By Karlo duarte Referred To Contact Gastroenterology Diagnoses Constipation, unspecified constipation type constipation Lorna Bal APRN [address] [place] [address] [facility] [address] [place] [address] Referral ID Status Reason Start Date Expiration Date Visits Requested Visits Authorized [id number] Authorized Consult, Test & Treat PCP Updated and/or Approved 01/30/2023 01/30/2024 12 12 Encounter Details Date Type Department Care Team (Latest Contact Info) Description 06/08/2023 9:00 AM EST TH Visit (TeleHealth) [place] [address] Samantha Crystal APRN [facility] [place] [address] Constipation, unspecified constipation type Social [...] stomach discomfort. She is being followed in [place] after hospital stay for a spinal infection. [...] All Drainage Procedures 06/25/2022 Mich Martino MD [facility] INTERVENTIONL RAD IR ALL DRAINAGE PROCEDURES 07/04/2022 IR All Drainage Procedures 07/04/2022 Mich Martino MD [facility] INTERVENTIONL RAD IR ALL DRAINAGE PROCEDURES 07/24/2022 IR All Drainage Procedures 07/24/2022 Anurag Kumar MD [facility] INTERVENTIONL RAD IR ALL DRAINAGE PROCEDURES 09/26/2022 IR All Drainage Procedures 09/26/2022 Jamaal Jenkins, DO [facility] INTERVENTIONL RAD IR DRAIN CHECK/CHANGE/REMOVE 07/01/2022 IR Drain Check/Change/Remove 07/01/2022 Jamaal Jenkins, DO [facility] INTERVENTIONL RAD IR DRAIN CHECK/CHANGE/REMOVE 08/11/2022 IR Drain Check/Change/Remove 08/11/2022 Piter Self MD [facility] INTERVENTIONL RAD IR DRAIN CHECK/CHANGE/REMOVE 08/25/2022 IR Drain Check/Change/Remove 08/25/2022 Jamaal Jenkins, DO [facility] INTERVENTIONL RAD IR DRAIN CHECK/CHANGE/REMOVE 09/10/2022 IR Drain Check/Change/Remove 09/10/2022 Mich Martino MD [facility] INTERVENTIONL RAD PRO APPLY OF HIP CASTS, TWO LEGS 08/15/2010 CAST APPLICATION, HIP SPICA, BOTH LEGS performed by BARRERA OLIVER at [facility] MAIN OR PRO I&D, POST SPINE, LUMB/SACR/LUMBOSAC N/A 05/20/2014 @I & D, OPEN, DEEP ABSCESS, LUMBAR, SACRAL, LUMBOSACRAL performed by Freddy Isbell MD at [facility] MAIN OR PRO I&D, POST SPINE, LUMB/SACR/LUMBOSAC N/A 05/26/2014 @I & D, OPEN, DEEP ABSCESS, LUMBAR, SACRAL, LUMBOSACRAL performed by Freddy Isbell MD at [facility] MAIN OR PRO IMPACT TOOTH REMOV COMP BONY N/A 06/14/2018 SURGICAL EXTRACTIONS, REMOVAL OF IMPACTED TOOTH, COMPLETELY BONY (WRVU 1.93) performed by Keith Cotton MD at [facility] OSC PRO OSTEOTOMY FEMUR SHAFT/SUPRACONDY 08/15/2010 ??OSTEOTOMY, FEMUR SHAFT OR SUPRACONDYLAR W/O FIXATION performed by BARRERA OLIVER at [facility] MAIN OR PRO RECONSTRUC HIP SOCKET, RESEC FEM HEAD 08/15/2010 ??ACETABULOPLASTY (GIRDLESTONE), RESECTION FEMORAL HEAD, BILATERAL performed by BARRERA OLIVER [facility] MAIN OR PRO REMOVAL DEEP IMPLANT 08/15/2010 REMOVAL IMPLANT, DEEP, BRUNO performed by BARRERA OLIVER at [facility] MAIN OR PRO REMOVAL ERUPTED TOOTH WITH ELEVATION OF MUCOPERIOSTEAL FLAP N/A 06/14/2018 SURGICAL EXTRACTIONS REQUIRING ELEVATION OF MUCOPERIOSTEAL FLAP AND REMOVAL OF BONE OR SECTION OF TOOTH (WRVU 1.09) performed by Keith Cotton MD at [facility] OSC PRO REMOVE INFUSN DEVICE/PUMP N/A 05/11/2014 REMOVAL OF SPINE INFUSION PUMP performed by Jamaal Samuel MD at [facility] MAIN OR PRO REMOVE SPINAL CANAL CATHETER N/A 05/11/2014 REMOVAL OF INTRATHECAL OR EPIDURAL CATHETER performed by Jamaal Samuel MD at [facility] MAIN OR PRO REPR, DURAL/CSF LEAK, NOT REQ LAMINECTOMY N/A 05/20/2014 @REPAIR DURAL\CSF LEAK,NOT REQUIRING LAMINECTOMY performed by Freddy Isbell MD at [facility] MAIN OR MEDICATIONS: Current Outpatient Medications [...] [Transparent Dressings] Itching and Dermatitis Please use [id number] Cyclobenzaprine Other Reaction(s): Not available Penicillins SOCIAL [...] labs. Theyare requesting these to go to [facility] ([facility] and hospice). They are aware [...] Mom requesting consent to order colonoscopy. Called [phone]. Awaiting call back for consent for colonoscopy. Ordered colonoscopy at this time and will await consent confirmation with mom prior to procedure. Total time spent on encounter today: Time spent reviewing records prior to this encounter: 10 minutes Time spent during encounter with patient including counselin minutes Time spent documenting encounter after office visit: 5 minutes Samantha Crystal, MSN, PUG MACHINE OPERATOR, TREATER HELPER-C Section of [place] [address] documented in this encounter Plan of Treatment Upcoming Encounters Date Type Department Care Team (Late st Contact Info) Description 11/25/2023 2:00 PM EDT TH Visit (TeleHealth) Infectious Disease at [place] [phone] Lilli Joy APRN [facility] [place] [address] 12/03/2023 12:30 PM EDT Office Visit Infectious Disease at [address] Hollie Ambriz MD [facility] [place] [address] 12/03/2023 2:30 PM EDT Hospital Encounter Radiology at [place] [address] Andrade Melvin MD [facility] [place] [address] Scheduled Orders Name Type Priority Associated Diagnoses [...] type documented in this encounter Care Teams Campus Administrator Relationship Specialty Start Date End Date Lorna Bal APRN [address] [place] [address] PCP - General Family Medicine 05/27/18 documented as of this encounter
--- OUTSIDE RECORDS SUMMARY | 2023-11-23 16:35 | XMS_ITS | Encounter Summary ---
Author Organization [facility] [place] [address] Care Team Providers Care Assistant Drafter Name Role Phone Lorna Bal APRN Primary Care Provider [phone] Reason for Referral * Diagnostic Test (Routine) - Closed Specialty Diagnoses / Procedures Referred By Contac t Referred To Contact Radiology Diagnoses Spinal abscess Procedures CT Lumbar Spine w Contrast George Tipton MD [facility] [place] [address] [facility] [place] [address] Referral ID Status Reason Start Date Expiration Date V isits Requested Visits Authorized [id number] Closed Specialty Service Requested 04/15/2023 10/14/2024 1 1 Reason for Visit * Diagnostic Test (Routine) - Closed Specialty Diagnoses / Procedures Referred By Contac t Referred To Contact Radiology Diagnoses Spinal abscess Procedures CT Lumbar Spine w Contrast George Tipton MD [facility] [place] [address] [facility] [place] [address] Referral ID Status Reason Start Date Expiration Date V isits Requested Visits Authorized [id number] Closed Specialty Service Requested 04/15/2023 10/14/2024 1 1 Encounter Details Date Type Department Care Team (Latest Contact Info) Description 04/16/2023 3:10 PM EST - 04/16/2023 11:59 PM EST Hospital En[place] [address] [place] [address] Spinal abscess Discharge Disposition: Home [...] Visit (TeleHealth) Infectious Disease at [place] [phone] Lilli Joy APRN [facility] DR INFECTI[place] [address] 12/03/2023 12:30 PM EDT Office Visit Infectious Disease at [place] [phone] Hollie Ambriz MD [facility] [place] [address] 12/03/2023 2:30 PM EDT Hospital Encounter Radiology at [place] [phone] Andrade Melvin MD [facility] [place] [address] documented as of this encounter Procedures Procedure [...] questions please contact the health acute care occupational therapist that requested your imaging first. ? Electronically signed by: Bobo Keane MD, [facility] ([phone]), at 04/17/2023 10:53 AM Narrative 04/17/2023 10:53 [...] have questions please contactthe health acute care occupational therapist that requested your imaging first. Keri Trevino [...] mLs documented in this encounter Care Teams Assistant Drafter Relationship Specialty Start Date End Date Lorna Bal APRN [address] [place] [address] PCP - General Family Medicine 05/27/18 documented as of this encounter
--- OUTSIDE RECORDS SUMMARY | 2023-11-23 16:35 | XMS_ITS | Encounter Summary ---
[place] [address] Care Team Providers Care Bore Mill Operator For Plastic Name Role Phone Lorna Bal APRN Primary Care Provider +1 -[phone] Reason for Referral * Diagnostic Test (Routine) - Closed Specialty Diagnoses / Procedures Referred By Contac t Referred To Contact Radiology Diagnoses Spinal abscess Procedures IR All Drainage Procedures IR All Biopsy Procedures Jamar Dasilva MD [facility] [address] [place] [address] Referral ID Status Reason Start Date Expiration Date V isits Requested Visits Authorized [id number] Closed Specialty Service Requested 09/26/2022 03/28/2024 1 1 Reason for Visit * Diagnostic Test (Routine) - Closed Specialty Diagnoses / Procedures Referred By Contac t Referred To Contact Radiology Diagnoses Spinal abscess Procedures IR All Drainage Procedures IR All Biopsy Procedures Jamar Dasilva MD [facility] [address] [facility] [place] [address] Referral ID Status Reason Start Date Expiration Date V isits Requested Visits Authorized [id number] Closed Specialty Service Requested 09/26/2022 03/28/2024 1 1 Encounter Details Date Type Department Care Team (Latest Contact Info) Description 09/26/2022 12:13 PM EDT - 09/26/2022 11:59 PM EDT Hospital [place] [address] Jamar Dasilva MD [facility] [place] [address] Spinal abscess Discharge Disposition: Home [...] is during regular office hours, please call [phone]. If it is after regular office hours, or on weekends or holidays, please call [phone] and ask to speak to the Scenario Writer addiction therapist for Interventional Radiology. You have received medication [...] of : 1995 AGE: 27 y.o. Address: [address] [place] [address] Phone: [phone] (home) Mobile: Telephone Information: Referring Provider: Jamar Dasilva REASON FOR VISIT: Paralumbar fluid aspiration Order Questions Answers Where will study be performed? [facility] Radiology [120] Is the patient on [...] [Transparent Dressings] Itching and Dermatitis Please use [id number] ??? Penicillins Pertinent PMH: Patient Active Problem [...] Questions Answers Where will study be performed? [facility] Radiology [120] Is the patient on [...] All Drainage Procedures 06/25/2022 Mich Martino MD [facility] INTERVENTIONL RAD ??? IR ALL DRAINAGE PROCEDURES 07/04/2022 IR All Drainage Procedures 07/04/2022 Mich Martino MD [facility] INTERVENTIONL RAD ??? IR ALL DRAINAGE PROCEDURES 07/24/2022 IR All Drainage Procedures 07/24/2022 Anurag Kumar MD [facility] INTERVENTIONL RAD ??? IR DRAIN CHECK/CHANGE/REMOVE 07/01/2022 IR Drain Check/Change/Remove 07/01/2022 Jamaal Jenkins, DO [facility] INTERVENTIONL RAD ??? IR DRAIN CHECK/CHANGE/REMOVE 08/11/2022 IR Drain Check/Change/Remove 08/11/2022 Piter Self MD [facility] INTERVENTIONL RAD ??? IR DRAIN CHECK/CHANGE/REMOVE 08/25/2022 IR Drain Check/Change/Remove 08/25/2022 Jamaal Jenkins, DO [facility] INTERVENTIONL RAD ??? IR DRAIN CHECK/CHANGE/REMOVE 09/10/2022 IR Drain Check/Change/Remove 09/10/2022 Mich Martino MD [facility] INTERVENTIONL RAD ??? PRO APPLY OF HIP CASTS, TWO LEGS 08/15/2010 CAST APPLICATION, HIP SPICA, BOTH LEGS performed by BARRERA OLIVER at [facility] MAIN OR ? ? PRO I&D, POST SPINE, LUMB/SACR/LUMBOSAC N/A 05/20/2014 @I & D, OPEN, DEEP ABSCESS, LUMBAR, SACRAL, LUMBOSACRAL performed by Freddy Isbell MD at [facility] MAIN OR ? ? PRO I&D, POST SPINE, LUMB/SACR/LUMBOSAC N/A 05/26/2014 @I & D, OPEN, DEEP ABSCESS, LUMBAR, SACRAL, LUMBOSACRAL performed by Freddy Isbell MD at [facility] MAIN OR ??? PRO IMPACT TOOTH REMOV COMP BONY N/A 06/14/2018 SURGICAL EXTRACTIONS, REMOVAL OF IMPACTED TOOTH, COMPLETELY BONY (WRVU 1.93) performed by Keith Cotton MD at [facility] OSC ??? PRO OSTEOTOMY FEMUR SHAFT/SUPRACONDY 08/15/2010 ??OSTEOTOMY, FEMUR SHAFT OR SUPRACONDYLAR W/O FIXATION performed by BARRERA OLIVER at [facility] MAIN OR ??? PRO RECONSTRUC HIP SOCKET, RESEC FEM HEAD 08/15/2010 ??ACETABULOPLASTY (GIRDLESTONE), RESECTION FEMORAL HEAD, BILATERAL performed by BARRERA OLIVER [facility] OR ??? PRO REMOVAL DEEP IMPLANT 08/15/2010 REMOVAL IMPLANT, DEEP, BRUNO performed by BARRERA OLIVER at [facility] MAIN OR ??? PRO REMOVAL ERUPTED TOOTH WITH ELEVATION OF MUCOPERIOSTEAL FLAP N/A 06/14/2018 SURGICAL EXTRACTIONS REQUIRING ELEVATION OF MUCOPERIOSTEAL FLAP AND REMOVAL OF BONE OR SECTION OF TOOTH (WRVU 1.09) performed by Keith Cotton MD at [facility] OSC ??? PRO REMOVE INFUSN DEVICE/PUMP N/A 05/11/2014 REMOVAL OF SPINE INFUSION PUMP performed by Jamaal Samuel MD at [facility] OR ??? PRO REMOVE SPINAL CANAL CATHETER N/A 05/11/2014 REMOVAL OF INTRATHECAL OR EPIDURAL CATHETER performed by Jamaal Samuel MD at [facility] OR ??? PRO REPR, DURAL/CSF LEAK, NOT REQ LAMINECTOMY N/A 05/20/2014 @REPAIR DURAL\CSF LEAK,NOT REQUIRING LAMINECTOMY performed by Freddy Isbell MD at [facility] OR Social History and Habits: Social [...] EDT TH Visit (TeleHealth) [place] [address] Lilli Joy APRN [facility] [place] [address] 12/03/2023 12:30 PM EDT Office [place] [address] Hollie Ambriz MD [facility] [place] [address] 12/03/2023 2:30 PM EDT Hospital [place] [address] Andrade Melvin MD [facility] [place] [address] documented as of this encounter Procedures Procedure [...] EDT) Anaerobic Culture No anaerobic organisms isolated [facility] Abscess STRUCTURE OF BACK OF TRUNK / Unknown 09/26/2022 12:49 PM EDT 09/26/2022 2:05 PM EDT Narrative Resulting Agency Comment Spec In Lab Jamar Dasilva MD MICROBIOLOGY - GE NERAL ORDERABLES Performing Organization Address City/[facility]/ZIP Co de Phone Number [facility] [place] [place] [address] * Abscess/Wound Aspirate Culture (09/26/2022 12:49 PM EDT) Abscess/Wound Aspirate Culture No growth [facility] Gram Stain Few Neutrophils seen No microorganisms seen. [facility] Abscess STRUCTURE OF BACK OF TRUNK / Unknown 09/26/2022 12:49 PM EDT 09/26/2022 2:05 PM EDT Narrative Resulting Agency Comment Spec In Lab Jamar Dasilva MD MICROBIOLOGY - GE NERAL ORDERABLES [facility] [place] [place] [address] * Calcofluor White Stain (09/26/2022 12:49 PM EDT) Calcofluor Stain Calcofluor White Preparation: Negative [facility] Abscess 09/26/2022 12:4 9 PM EDT 09/26/2022 2:05 PM EDT Narrative Resulting Agency Comment Spec In Lab Jamar Dasilva MD MICROBIOLOGY - GE NERAL ORDERABLES Performing Organization Address [facility] [place] [address] * Fungus culture (09/26/2022 12:49 PM EDT) Fungus Culture No Fungus isolated [facility] Abscess 09/26/2022 12:4 9 PM EDT 09/26/2022 2:05 PM EDT Narrative Resulting Agency Comment Spec In Lab Jamar Dasilva MD MICROBIOLOGY - GE NERAL ORDERABLES Performing Organization Address [facility] [place] [address] * AFB culture Back (09/26/2022 12:49 PM EDT) Acid Fast Bacilli Culture No Acid Fast Bacilli isolated [facility] Acid Fast Stain No Acid Fast Bacilli seen [facility] Back 09/26/2022 12:4 9 PM EDT 09/26/2022 2:05 PM EDT Narrative Resulting Agency Comment Spec In Lab Jamar Dasilva MD MICROBIOLOGY - GE NERAL ORDERABLES Performing Organization Address [facility] [place] [address] documented in this encounter Visit Diagnoses Diagnosis [...] mLs documented in this encounter Care Teams Bore Mill Operator For Plastic Relationship Specialty Start Date End Date Lorna Bal, PICK UP OPERATOR [address] [place] [address] PCP - General Family Medicine 05/27/18 documented as of this encounter
--- OUTSIDE RECORDS SUMMARY | 2023-11-23 16:35 | XMS_ITS | Encounter Summary ---
Author Organization [facility] [place] [address] Care Team Providers Care Res Habilitation Assistant Name Role Phone Lorna Bal APRN Primary Care Provider +1 -[phone] Encounter Details Date Type Department Care Team (Late st Contact Info) Description 09/26/2022 Telephone [place] [phone] Valentina Stanton Social History Tobacco Use Types [...] caregiver Fernanda once we know at number [phone]. This was okay per pt Mom. documented in this encounter Plan of Treatment Upcoming Encounters Date Type Department Care Team (Late st Contact Info) Description 11/25/2023 2:00 PM EDT TH Visit (TeleHealth) [place] [address] Lilli Joy APRN [facility] [place] [address] 12/03/2023 12:30 PM EDT Office [place] [address] Hollie Ambriz MD [facility] [place] [address] 12/03/2023 2:30 PM EDT Hospital Encounter Radiology at [place] [phone] Andrade Melvin MD [facility] [place] [address] documented as of this encounter Visit Diagnoses Not on filedocumented in this encounter Care Teams Res Habilitation Assistant Relationship Specialty Start Date End Date Lorna Bal APRN [address] [place] [address] PCP - General Family Medicine 05/27/18 documented as of this encounter
--- OUTSIDE RECORDS SUMMARY | 2023-11-23 16:36 | XMS_ITS | Encounter Summary ---
Author Organization [facility] [place] [address] Care Team Providers Care Jailor Name Role Phone Lorna Bal APRN Primary Care Provider +1 -[phone] Encounter Details Date Type Department Care Team (Late st Contact Info) Description 09/08/2022 Telephone [place] [address] Valentina Stanton Social History Tobacco Use Types [...] Visit (TeleHealth) Infectious Disease at [place] [phone] Lilli Joy APRN [facility] [place] [address] 12/03/2023 12:30 PM EDT Office Visit Infectious Disease at [place] [phone] Hollie Ambriz MD [facility] [place] [address] 12/03/2023 2:30 PM EDT Hospital Encounter Radiology at [place] [phone] Andrade Melvin MD [facility] [place] [address] documented as of this encounter Visit Diagnoses Not on filedocumented in this encounter Care Teams Jailor Relationship Specialty Start Date End Date Lorna Bal APRN [address] [place] [address] PCP - General Family Medicine 05/27/18 documented as of this encounter
--- OUTSIDE RECORDS SUMMARY | 2023-11-23 16:36 | XMS_ITS | Encounter Summary ---
[place] [address] Care Team Providers Care Tankroom Worker Name Role Phone Lorna Bal APRN Primary Care Provider +1 -[phone] Encounter Details Date Type Department Care Team (Latest Contact Info) Description 08/11/2022 2:40 PM EDT Laboratory Appointment Lab [address] [phone] Spinal abscess; Bacteremia; E coli infection; Soft [...] EDT TH Visit (TeleHealth) [place] [address] Lilli Joy APRN [facility] [place] [address] 12/03/2023 12:30 PM EDT Office [place] [address] Hollie Ambriz MD [facility] [place] [address] 12/03/2023 2:30 PM EDT Hospital [place] [address] Andrade Melvin MD [facility] [place] [address] documented as of this encounter [...] 2:53 PM EDT) Neutrophils % 66.1 % [facility] Neutr Abs (ANC) 4.09 1.70 - 6.10 x10(3)/[facility] Lymphocytes % 26.8 % [facility] Lymphocytes Abs 1.7 0.9 - 3.2 x10(3)/[facility] Monocytes % 5.7 % [facility] Monocyte Abs 0.4 0.3 - 0.9 x10(3)/[facility] Eosinophils % 1.1 % [facility] Eosinophils Abs 0.1 0.0 - 0.4 x10(3)/[facility] Basophils % 0.3 % [facility] Basophils Abs 0.0 0.0 - 0.1 x10(3)/[facility] Immature Gran % 0.00 % [facility] Comment: Immature granulocytes(IG's)percentage and absolute count will include metamyelocytes, myelocytes, and promyelocytes. Blood smears from CBCs yielding IG's will be scanned manually for concordance. If this scan disagrees with the automated IG or if promyelocytes are noted, a manual differential will be performed. Debora Gran Abs 0.00 0.00 - 0.04 x10(3)/[facility] Blood 08/11/2022 2:53 PM EDT 08/11/2022 3:21 PM EDT Narrative Resulting Agency Comment Spec In Lab Jamaal Estrada MD HEMATOLOGY ORDERABL ES [facility] [place] [address] * (ABNORMAL) Hemogram (08/11/2022 2:53 PM EDT) WBC 6.2 4.0 - 9.5 x10(3)/[facility] RBC 4.81 4.00 - 5.21 x10(6)/[facility] Hemoglobin 12.1 11.7 - 15.5 g/dL [facility] Hematocrit 37.4 35.7 - 45.8 % [facility] MCV 77.8(L) 82.6 - 94.4 [facility] MCH 25.2(L) 27.1 - 32.0 pg [facility] MCHC 32.4 31.7 - 35.0 g/dL [facility] Platelets 387(H) 145 - 357 x10(3)/[facility] RDWSD 50.0(H) 37.0 - 46.0 [facility] RDWCV 17.9(H) 11.5 - 14.1 % [facility] MPV 9.6 7.6 - 12.9 [facility] nRBC % Auto 0.0 % [facility] nRBC Abs Auto 0.000 0.000 - 0.000 x10(3)/[facility] Blood 08/11/2022 2:53 PM EDT 08/11/2022 3:21 PM EDT Narrative Resulting Agency Comment Spec In Lab Jamaal Estrada MD HEMATOLOGY ORDERABL ES [facility] [place] [address] * (ABNORMAL) Comprehensive metabolic panel (non-fasting) (08/11/2022 2:53 PM EDT) Glucose Lvl 75 65 - 199 mg/dL [facility] Comment:Diabetes: >=200 mg/d L plus symptoms BUN 9 8 - 18 mg/dL [facility] Creatinine 0.25(L) 0.70 - 1.20 mg/dL [facility] Sodium 141 135 - 145 mmol/L [facility] Potassium 4.0 3.5 - 5.0 mmol/L [facility] Comment: Please note: ??Patients with WBC >100,000 may have falsely elevated Potassium levels. ??For accurate Potassium quantification in these patients send serum separator tube (gold top) for subsequent determinations. ??Contact the Clinical Chemistry Laboratory if there are any questions. Chloride 105 98 - 107 mmol/L [facility] CO2 24 22 - 31 mmol/L [facility] Anion Gap 12 5 - 15 mmol/L [facility] Calcium 9.4 8.5 - 10.5 mg/dL [facility] Total Protein 8.0 6.1 - 8.0 g/dL [facility] Albumin 4.2 3.2 - 5.2 g/dL [facility] AST 19 0 - 30 unit/L [facility] ALT 26 0 - 30 unit/L [facility] Alk Phos 211(H) 35 - 105 unit/L [facility] Total Bilirubin <0.2(L) 0.2 - 1.3 mg/dL [facility] Estimated GFR 154 >=60 mL/min/1. 73 m?? [facility] Comment: This patient's estimated [...] Lab Jamaal Estrada MD CHEMISTRY ORDERABLE S [facility] [place] [address] * (ABNORMAL) CRP, acute inflammation (08/11/2022 2:53 PM EDT) CRP 45.8(H) <=4.9 mg/L [facility] Blood 08/11/2022 2:53 PM EDT 08/11/2022 3:21 PM EDT Narrative Resulting Agency Comment Spec In Lab Jamaal Estrada MD CHEMISTRY ORDERABLE S [facility] [place] [address] documented in this encounter Visit Diagnoses Diagnosis Spinal abscess Acute osteomyelitis, other specified site Bacteremia E coli infection Other and unspecified Escherichia coli (E. coli) Soft tissue abscess Cellulitis and abscess of other specified site Muscle abscess Other disorder of muscle, ligament, and fascia documented in this encounter Care Teams Tankroom Worker Relationship Specialty Start Date End Date Lorna Bal APRN [address] [place] [address] PCP - General Family Medicine 05/27/18 documented as of this encounter
--- OUTSIDE RECORDS SUMMARY | 2023-11-23 16:36 | XMS_ITS | Encounter Summary ---
[place] [address] Care Team Providers Care Leadership Development Instructor Name Role Phone Lorna Bal APRN Primary Care Provider +1 -[phone] Reason for Referral * Consultation (Routine) - Closed Specialty Diagnoses / Procedures Referred By Contac t Referred To Contact [facility] Diagnoses Spinal abscess Soft tissue abscess Bacteremia Sergey Keane MD [facility] [place] [address] [facility] [place] [address] Referral ID Status Reason Start Date Expiration Date V isits Requested Visits Authorized [id number] Closed Consult, Test & Treat 08/13/2022 08/13/2023 1 1 Encounter Details Date Type Department Care Team (Late st Contact Info) Description 08/13/2022 11:30 AM EDT Office Visit [place] [address] Sergey Keane MD [facility] [place] [address] Spinal abscess; Soft tissue abscess; Bacteremia; long-term 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 Social History Tobacco [...] 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 and??prior bilateral [place]??in??2010 [place] [facility] [place]for evaluation of??increasing [...] drainage from the same area??she [place] [facility] [place], a repeated [...] needed Sergey Doan MD Infectious Disease Fellow [facility] 08/18/2022 Chronic suppression Behaving as infection * [...] EDT TH Visit (TeleHealth) Infectious Disease at [address] Lilli Joy APRN [facility] [place] [address] 12/03/2023 12:30 PM EDT Office [place] [address] Hollie Ambriz MD [facility] [place] [address] 12/03/2023 2:30 PM EDT Hospital Encounter Radiology at [address] Andrade Melvin MD [facility] [place] [address] Scheduled Referrals Name Type Priority Associated Diagnoses Order Schedule Referral to Orthopaedics Outpatient Referral Routine Spinal abscess Soft tissue abscess Bacteremia Ordered: 08/13/2022 documented as of this encounter Visit Diagnoses Diagnosis Spinal abscess Acute osteomyelitis, other specified site Soft tissue abscess Cellulitis and abscess of other specified site Bacteremia 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
--- OUTSIDE RECORDS SUMMARY | 2023-11-23 16:36 | XMS_ITS | Encounter Summary ---
Author Organization [facility] [place] [address] Care Team Providers Care Roller Leveler Name Role Phone Lorna Bal APRN Primary Care Provider +1 -[phone] Encounter Details Date Type Department Care Team [...] Infectious Disease at [facility] [place] [phone] Lilli Joy APRN [facility] [place] [address] 12/03/2023 12:30 PM EDT Office Visit Infectious Disease at [place] [phone] Hollie Ambriz MD [facility] [place] [address] 12/03/2023 2:30 PM EDT Hospital En[place] [address] Andrade Melvin MD [facility] [place] [address] documented as of this encounter Visit Diagnoses Not on filedocumented in this encounter Care Teams Roller Leveler Relationship Specialty Start Date End Date Lorna Bal APRN [address] [place] [address] PCP - General Family Medicine 05/27/18 documented as of this encounter
--- OUTSIDE RECORDS SUMMARY | 2023-11-23 16:36 | XMS_ITS | Encounter Summary ---
Author Organization [facility] [place] [address] Care Team Providers Care Dental Secretary Name Role Phone Lorna Bal APRN Primary Care Provider +1 -[phone] Encounter Details Date Type Department Care Team (Late st Contact Info) Description 09/03/2022 Telephone [place] [phone] Halima García Social History Tobacco Use Types Packs/Day Years Used Date Smoking Tobacco: Never Smokeless Tobacco: Never Comments:NO SMOKERS IN THE H OME Alcohol Use Standard Drinks/Week Comments No 0 (1 standard drink = 0.6 oz pur e alcohol) [facility] Inpatient Questions Answer Date [...] return call to Dr. Ila Hadley from [facility]. Requesting a call back to discuss pt dx, 2nd option and how she can best assist with the pt's care. Dr. Hadley [phone]. Thanks Halima documented in this encounter Plan of Treatment Upcoming Encounters Date Type Department Care Team (Late st Contact Info) Description 11/25/2023 2:00 PM EDT TH Visit (TeleHealth) Infectious Disease at [place] [phone] Lilli Joy APRN [facility] [place] [address] 12/03/2023 12:30 PM EDT Office Visit Infectious Disease at [place] [phone] Hollie Ambriz MD [facility] [place] [address] 12/03/2023 2:30 PM EDT Hospital Encounter Radiology at [place] [phone] Andrade Melvin MD [facility] [address] [place] [address] documented as of this encounter Visit Diagnoses Not on filedocumented in this encounter Care Teams Dental Secretary Relationship Specialty Start Date End Date Lorna Bal APRN [address] [place] [address] PCP - General Family Medicine 05/27/18 documented as of this encounter
--- OUTSIDE RECORDS SUMMARY | 2023-11-23 16:36 | XMS_ITS | Encounter Summary ---
Author Organization [facility] [place] [address] Care Team Providers Care Assisted Living Coordinator Name Role Phone Lorna Bal APRN Primary Care Provider +1 [phone] Encounter Details Date Type Department Care Team [...] EDT TH Visit (TeleHealth) Infectious Disease at [facility] [place] [phone] Lilli Joy APRN [facility] [place] [address] 12/03/2023 12:30 PM EDT Office Visit Infectious Disease at [place] [phone] Hollie Ambriz MD [facility] [place] [address] 12/03/2023 2:30 PM EDT Hospital En[place] [address] Andrade Melvin MD [facility] [place] [address] documented as of this encounter Visit Diagnoses Not on filedocumented in this encounter Care Teams Assisted Living Coordinator Relationship Specialty Start Date End Date Lorna Bal APRN [address] [place] [address] PCP - General Family Medicine 05/27/18 documented as of this encounter
--- OUTSIDE RECORDS SUMMARY | 2023-11-23 16:36 | XMS_ITS | Encounter Summary ---
[place] [address] Care Team Providers Care Order Booker Name Role Phone Lorna Bal APRN Primary Care Provider +1 -[phone] Reason for Referral * Diagnostic Test (Routine) - New Request Specialty Diagnoses / Procedures Referred By Contac t Referred To Contact Radiology Diagnoses Spinal abscess Procedures IR Drain Check/Change/Remove Lucho Burciaga MD [facility] [place] [address] [place] [address] Referral ID Status Reason Start Date Expiration Date Visits Requested Visits Authorized [id number] New Request Specialty Service Requested 07/24/2022 01/25/2024 1 1 Reason for Visit * Diagnostic Test (Routine) - New Request Specialty Diagnoses / Procedures Referred By Contac t Referred To Contact Radiology Diagnoses Spinal abscess Procedures IR Drain Check/Change/Remove Lucho Burciaga MD [facility] [place] [address] [place] [address] Referral ID Status Reason Start Date Expiration Date Visits Requested Visits Authorized [id number] New Request Specialty Service Requested 07/24/2022 01/25/2024 1 1 Encounter Details Date Type Department Care Team (Latest Contact Info) Description 08/11/2022 11:53 AM EDT - 08/11/2022 11:59 PM EDT Hospital [place] [address] Anurag Kumar MD [facility] [place] [address] Spinal abscess Discharge Disposition: Home [...] is during regular office hours, please call [phone]. If it is after regular office hours, or on weekends or holidays, please call [phone] and ask to speak to the Subway Car Repairer rehabilitation construction specialist for Interventional Radiology. XX You have [...] of : 1995 AGE: 27 y.o. Address: [address] [place] [address] Phone: [phone] (home) Mobile: Telephone Information: Referring Provider: Lucho [...] [Transparent Dressings] Itching and Dermatitis Please use [id number] ??? Penicillins Pertinent PMH: Patient Active Problem [...] will study be performed? [facility] Radiology [120] Reason for exam and clinical [...] 06/25/2022 Mich Martino MD [facility] INTERVENTIONL RAD ??? IR ALL DRAINAGE PROCEDURES 07/04/2022 IR All Drainage Procedures 07/04/2022 Mich Martino MD [facility] INTERVENTIONL RAD ??? IR ALL DRAINAGE PROCEDURES 07/24/2022 IR All Drainage Procedures 07/24/2022 Anurag Kumar MD [facility] INTERVENTIONL RAD ??? IR DRAIN CHECK/CHANGE/REMOVE 07/01/2022 IR Drain Check/Change/Remove 07/01/2022 Jamaal Jenkins, DO [facility] INTERVENTIONL RAD ??? PRO APPLY OF HIP CASTS, TWO LEGS 08/15/2010 CAST APPLICATION, HIP SPICA, BOTH LEGS performed by BARRERA OLIVER at [facility] MAIN OR ? ? PRO I&D, POST SPINE, LUMB/SACR/LUMBOSAC N/A 05/20/2014 @I & D, OPEN, DEEP ABSCESS, LUMBAR, SACRAL, LUMBOSACRAL performed by Freddy Isbell MD at [facility] MAIN OR ? ? PRO I&D, POST SPINE, LUMB/SACR/LUMBOSAC N/A 05/26/2014 @I & D, OPEN, DEEP ABSCESS, LUMBAR, SACRAL, LUMBOSACRAL performed by Freddy Isbell MD at [facility] MAIN OR ??? PRO IMPACT TOOTH REMOV COMP BONY N/A 06/14/2018 SURGICAL EXTRACTIONS, REMOVAL OF IMPACTED TOOTH, COMPLETELY BONY (WRVU 1.93) performed by Keiht Cotton MD at [facility] OSC ??? PRO OSTEOTOMY FEMUR SHAFT/SUPRACONDY 08/15/2010 ??OSTEOTOMY, FEMUR SHAFT OR SUPRACONDYLAR W/O FIXATION performed by BARRERA OLIVER at [facility] OR ??? PRO RECONSTRUC HIP SOCKET, RESEC FEM HEAD 08/15/2010 ??ACETABULOPLASTY (GIRDLESTONE), RESECTION FEMORAL HEAD, BILATERAL performed by BARRERA OLIVER [facility] OR ??? PRO REMOVAL DEEP IMPLANT 08/15/2010 REMOVAL IMPLANT, DEEP, BRUNO performed by BARRERA OLIVER at [facility] OR ??? PRO REMOVAL ERUPTED TOOTH WITH ELEVATION OF MUCOPERIOSTEAL FLAP N/A 06/14/2018 SURGICAL EXTRACTIONS REQUIRING ELEVATION OF MUCOPERIOSTEAL FLAP AND REMOVAL OF BONE OR SECTION OF TOOTH (WRVU 1.09) performed by Keith Cotton MD at [facility] OSC ??? PRO REMOVE INFUSN DEVICE/PUMP N/A 05/11/2014 REMOVAL OF SPINE INFUSION PUMP performed by Jamaal Samuel MD at [facility] MAIN OR ??? PRO REMOVE SPINAL CANAL CATHETER N/A 05/11/2014 REMOVAL OF INTRATHECAL OR EPIDURAL CATHETER performed by Jamaal Samuel MD at [facility] MAIN OR ??? PRO REPR, DURAL/CSF LEAK, NOT REQ LAMINECTOMY N/A 05/20/2014 @REPAIR DURAL\CSF LEAK,NOT REQUIRING LAMINECTOMY performed by Freddy Isbell MD at [facility] MAIN OR Social History and Habits: Social [...] EDT TH Visit (TeleHealth) [place] [address] Lilli Joy APRN [facility] [place] [address] 12/03/2023 12:30 PM EDT Office [place] [phone] Hollie Ambriz MD [facility] [place] [address] 12/03/2023 2:30 PM EDT Hospital [place] [address] Andrade Melvin MD [facility] [place] [address] documented as of this encounter Procedures Procedure [...] mg documented in this encounter Care Teams Order Booker Relationship Specialty Start Date End Date Lorna Bal APRN [address] [place] [address] PCP - General Family Medicine 05/27/18 documented as of this encounter
--- OUTSIDE RECORDS SUMMARY | 2023-11-23 16:36 | XMS_ITS | Encounter Summary ---
Author Organization [facility] [place] [address] Care Team Providers Care Shell Sieve Operator Name Role Phone Lorna Bal APRN Primary Care Provider +1 -[phone] Reason for Referral * Diagnostic Test (Routine) - New Request Specialty Diagnoses / Procedures Referred By Contac t Referred To Contact Radiology Diagnoses Spinal abscess Procedures IR Drain Check/Change/Remove Hank Nunez PA [facility] [place] [address] [place] [address] Referral ID Status Reason Start Date Expiration Date Visits Requested Visits Authorized [id number] New Request Specialty Service Requested 08/21/2022 02/21/2024 1 1 Encounter Details Date Type Department Care Team (Late st Contact Info) Description 08/21/2022 [place] [address] Hank Nunez PA [facility] [place] [address] Spinal abscess Social History Tobacco Use Types [...] EDT TH Visit (TeleHealth) Infectious Disease at [place] [phone] Lilli Joy APRN [facility] DR INFECTIOUS [place] [address] 12/03/2023 12:30 PM EDT Office Visit Infectious Disease at [place] [phone] Hollie Ambriz MD [facility] INFECTIOUS [place] [address] 12/03/2023 2:30 PM EDT Hospital Encounter Radiology at [place] [phone] Andrade Melvin MD [facility] DR INTERVENTIONAL [place] [address] documented as of this encounter Results * [...] dislodged and replaced on 07/24. Additional 8 Japanese drain placed into adjacent L2/L3 collection at [...] throughout. ?? More Caudal Lumbar Drainage Catheter: Patient Educator fluoroscopic images were obtained. ??Contrast was injected through the catheter and repeat fluoroscopic images were obtained. The drainage catheter was left in place. ??A sterile dressing was applied. ?? More Cranial Lumbar Drainage Catheter: Patient Educator fluoroscopic images were obtained. ??Contrast was injected [...] present throughout the procedure. Piter Self MD [facility] IR ORDERABLES documented in this encounter Visit [...] sequela documented in this encounter Care Teams Shell Sieve Operator Relationship Specialty Start Date End Date Lorna Bal APRN [address] [place] [address] PCP - General Family Medicine 05/27/18 documented as of this encounter
--- OUTSIDE RECORDS SUMMARY | 2023-11-23 16:36 | XMS_ITS | Encounter Summary ---
Author Organization [facility] [place] [address] Care Team Providers Care Tool Filer Hand Name Role Phone Lorna Bal APRN Primary Care Provider +1 -[phone] Encounter Details Date Type Department Care Team (Late st Contact Info) Description 09/05/2022 Telephone [place] [address] Valentina Stanton Social History Tobacco Use Types [...] EDT TH Visit (TeleHealth) Infectious Disease at [place] [phone] Lilli Joy APRN [facility] [place] [address] 12/03/2023 12:30 PM EDT Office Visit Infectious Disease at [place] [phone] Hollie Ambriz MD [facility] [place] [address] 12/03/2023 2:30 PM EDT Hospital Encounter Radiology at [place] [phone] Andrade Melvin MD [facility] [place] [address] documented as of this encounter Visit Diagnoses Not on filedocumented in this encounter Care Teams Tool Filer Hand Relationship Specialty Start Date End Date Lorna Bal APRN [address] [place] [address] PCP - General Family Medicine 05/27/18 documented as of this encounter
--- OUTSIDE RECORDS SUMMARY | 2023-11-23 16:36 | XMS_ITS | Encounter Summary ---
Author Organization [facility] [place] [address] Care Team Providers Care Strike On Machine Operator Name Role Phone Lorna Bal APRN Primary Care Provider +1 -[phone] Encounter Details Date Type Department Care Team (Late st Contact Info) Description 08/15/2022 Telephone [place] [address] Neva Thorpe, RN Social History Tobacco Use [...] 08/15/2022 2:26 PM EDT Pictures received via [facility] of Tana's back wound. This RN spoke [...] Visit (TeleHealth) Infectious Disease at [place] [address] Lilli Joy APRN [facility] [place] [address] 12/03/2023 12:30 PM EDT Office Visit Infectious Disease at [address] Hollie Ambriz MD [facility] [place] [address] 12/03/2023 2:30 PM EDT Hospital [place] [address] Andrade Melvin MD [facility] [place] [address] documented as of this encounter Visit Diagnoses Not on filedocumented in this encounter Care Teams Strike On Machine Operator Relationship Specialty Start Date End Date Loran Bal APRN [address] [place] [address] PCP - General Family Medicine 05/27/18 documented as of this encounter
--- OUTSIDE RECORDS SUMMARY | 2023-11-23 16:36 | XMS_ITS | Encounter Summary ---
Author Organization [facility] [place] [address] Care Team Providers Care Control Engineer Name Role Phone Lorna Bal APRN Primary Care Provider +1 -[phone] Encounter Details Date Type Department Care Team (Late st Contact Info) Description 08/19/2022 Telephone [place] [phone] Lilli Joy APRN [facility] [place] [address] Social History Tobacco Use Types Packs/Day Years [...] Notes * Telephone Encounter - Lilli Joy, MOLDER PIPE COVERING - 08/19/2022 8:59 PM EDT S: Received [...] Thang, apprised of above Lilli Joy APRN, BC Infectious Disease 08/19/2022 6:00 PM documented in this encounter Plan of Treatment Upcoming Encounters Date Type Department Care Team (Late st Contact Info) Description 11/25/2023 2:00 PM EDT TH Visit (TeleHealth) Infectious Disease at [place] [address] [facility] [place] [address] 12/03/2023 12:30 PM EDT Office [place] [address] [facility] [place] [address] 12/03/2023 2:30 PM EDT Hospital [place] [address] [facility] [place] [address] documented as of this encounter Visit Diagnoses Not on filedocumented in this encounter Care Teams Control Engineer Relationship Specialty Start Date End Date Lorna Bal APRN [address] [place] [address] PCP - General Family Medicine 05/27/18 documented as of this encounter
--- OUTSIDE RECORDS SUMMARY | 2023-11-23 16:36 | XMS_ITS | Encounter Summary ---
Author Organization [facility] [place] [address] Care Team Providers Care Beater Operator Name Role Phone Lorna Bal APRN Primary Care Provider +1 -[phone] Encounter Details Date Type Department Care Team (Late st Contact Info) Description 08/15/2022 Telephone [place] [address] Shawn Woodard MD [facility] [place] [address] Social History Tobacco Use Types Packs/Day Years [...] to answer her earlier call to the [facility] nursing group with concerns. She was both confused after her clinic appointment of two days ago, when she feels that she received two different messages from the fellow and attending she saw (one suggesting there may not even olmedo infection and the other that Tana might need to be on antibiotics for life); and also concernedabout a siletz tribe of erythema which she had noted [...] may not be curable (hence discussion about adjunct faculty for medical terminology antibiotics), especially with the remaining screw, which [...] TH Visit (TeleHealth) Infectious Disease at [address] Lilli Joy APRN [facility] [place] [address] 12/03/2023 12:30 PM EDT Office Visit Infectious Disease at [address] Hollie Ambriz MD [facility] [place] [address] 12/03/2023 2:30 PM EDT Hospital Encounter Radiology at [place] [phone] Andrade Melvin MD [facility] [place] [address] documented as of this encounter Visit Diagnoses Not on filedocumented in this encounter Care Teams Beater Operator Relationship Specialty Start Date End Date Lorna Bal APRN [address] [place] [address] PCP - General Family Medicine 05/27/18 documented as of this encounter
--- OUTSIDE RECORDS SUMMARY | 2023-11-23 16:36 | XMS_ITS | Encounter Summary ---
Author Organization [facility] [place] [address] Care Team Providers Care Glaze Sprayer Name Role Phone Lorna Bal APRN Primary Care Provider +1 -[phone] Reason for Referral * Diagnostic Test (Routine) - Pending Review Specialty Diagnoses / Procedures Referred By Karlo duarte Referred To Contact Radiology Diagnoses Spinal abscess [...] sequela Procedures IR Drain Check/Change/Remove Jamaal Jenkins, [facility] [place] [address] [facility] [place] [address] Referral ID Status Reason Start Date Expiration Date Visits Requested Visits Authorized [id number] Pending Review Specialty Service Requested 08/25/2022 02/26/2024 1 1 Reason for Visit * Diagnostic Test (Routine) - Pending Review Specialty Diagnoses / Procedures Referred By Karlo duarte Referred To Contact Radiology Diagnoses Spinal abscess [...] sequela Procedures IR Drain Check/Change/Remove Jamaal Jenkins, [facility] [place] [address] [facility] [place] [address] Referral ID Status Reason Start Date Expiration Date Visits Requested Visits Authorized [id number] Pending Review Specialty Service Requested 08/25/2022 02/26/2024 1 1 Encounter Details Date Type Department Care Team (Latest Contact Info) Description 09/10/2022 10:49 AM EDT - 09/10/2022 11:59 PM EDT Hospital [place] [address] Jamaal Jenkins, [facility] [place] [address] Spinal abscess; Abscess; Contracture of left elbow; [...] Qiu RN - 09/10/2022 12:55 PM EDT [facility] Vascular and Interventional Radiology Discharge Instructions [...] is during regular office hours, please call [phone]. If it is after regular office hours, or on weekends or holidays, please call [phone] and ask to speak to the Soda Flaker communications director for Interventional Radiology. You may resume your [...] : 1995 AGE: 27 y.o. Address: [address] [place] [address] Phone: [phone] (home) Mobile: Telephone Information: Referring Provider: Jamaal [...] [Transparent Dressings] Itching and Dermatitis Please use [id number] ??? Penicillins Pertinent PMH: Patient Active Problem [...] MD [facility] INTERVENTIONL RAD ??? IR ALL DRAINAGE PROCEDURES 07/04/2022 IR All Drainage Procedures 07/04/2022 Mich Martino MD [facility] INTERVENTIONL RAD ??? IR ALL DRAINAGE PROCEDURES 07/24/2022 IR All Drainage Procedures 07/24/2022 Anurag Kumar MD [facility] INTERVENTIONL RAD ??? IR DRAIN CHECK/CHANGE/REMOVE 07/01/2022 IR Drain Check/Change/Remove 07/01/2022 Jamaal Jenkins, DO [facility] INTERVENTIONL RAD ??? IR DRAIN CHECK/CHANGE/REMOVE 08/11/2022 IR Drain Check/Change/Remove 08/11/2022 Piter Self MD [facility] INTERVENTIONL RAD ??? IR DRAIN CHECK/CHANGE/REMOVE 08/25/2022 IR Drain Check/Change/Remove 08/25/2022 Jamaal Jenkins, DO [facility] INTERVENTIONL RAD ??? PRO APPLY OF HIP CASTS, TWO LEGS 08/15/2010 CAST APPLICATION, HIP SPICA, BOTH LEGS performed by BARRERA OLIVER at [facility] MAIN OR ? ? PRO I&D, POST SPINE, LUMB/SACR/LUMBOSAC N/A 05/20/2014 @I & D, OPEN, DEEP ABSCESS, LUMBAR, SACRAL, LUMBOSACRAL performed by Freddy Isbell MD at [facility] MAIN OR ? ? PRO I&D, POST SPINE, LUMB/SACR/LUMBOSAC N/A 05/26/2014 @I & D, OPEN, DEEP ABSCESS, LUMBAR, SACRAL, LUMBOSACRAL performed by Freddy Isbell MD at [facility] MAIN OR ??? PRO IMPACT TOOTH REMOV COMP BONY N/A 06/14/2018 SURGICAL EXTRACTIONS, REMOVAL OF IMPACTED TOOTH, COMPLETELY BONY (WRVU 1.93) performed by Keith Cotton MD at [facility] OSC ??? PRO OSTEOTOMY FEMUR SHAFT/SUPRACONDY 08/15/2010 ??OSTEOTOMY, FEMUR SHAFT OR SUPRACONDYLAR W/O FIXATION performed by BARRERA OLIVER at [facility] MAIN OR ??? PRO RECONSTRUC HIP SOCKET, RESEC FEM HEAD 08/15/2010 ??ACETABULOPLASTY (GIRDLESTONE), RESECTION FEMORAL HEAD, BILATERAL performed by BARRERA OLIVER [facility] OR ??? PRO REMOVAL DEEP IMPLANT 08/15/2010 REMOVAL IMPLANT, DEEP, BRUNO performed by BARRERA OLIVER at [facility] OR ??? PRO REMOVAL ERUPTED TOOTH WITH ELEVATION OF MUCOPERIOSTEAL FLAP N/A 06/14/2018 SURGICAL EXTRACTIONS REQUIRING ELEVATION OF MUCOPERIOSTEAL FLAP AND REMOVAL OF BONE OR SECTION OF TOOTH (WRVU 1.09) performed by Keith Cotton MD at [facility] OSC ??? PRO REMOVE INFUSN DEVICE/PUMP N/A 05/11/2014 REMOVAL OF SPINE INFUSION PUMP performed by Jamaal Samuel MD at [facility] MAIN OR ??? PRO REMOVE SPINAL CANAL CATHETER N/A 05/11/2014 REMOVAL OF INTRATHECAL OR EPIDURAL CATHETER performed by Jamaal Samuel MD at [facility] MAIN OR ??? PRO REPR, DURAL/CSF LEAK, NOT REQ LAMINECTOMY N/A 05/20/2014 @REPAIR DURAL\CSF LEAK,NOT REQUIRING LAMINECTOMY performed by Freddy Isbell MD at [facility] MAIN OR Medications: Current Outpatient Medications [...] EDT TH Visit (TeleHealth) [place] [address] Lilli Joy APRN [facility] [place] [address] 12/03/2023 12:30 PM EDT Office [place] [address] Hollie Ambriz MD [facility] [place] [address] 12/03/2023 2:30 PM EDT Hospital Encounter Radiology at [facility] [place] [address] Andrade Melvin MD [facility] [place] [address] documented as of this encounter [...] mLs documented in this encounter Care Teams Glaze Sprayer Relationship Specialty Start Date End Date Lorna Bal APRN [address] [place] [address] PCP - General Family Medicine 05/27/18 documented as of this encounter
--- OUTSIDE RECORDS SUMMARY | 2023-11-23 16:36 | XMS_ITS | Encounter Summary ---
[place] [address] Care Team Providers Care Senior Qa Tester Name Role Phone Lorna Bal APRN Primary Care Provider +1 -[phone] Encounter Details Date Type Department Care Team (Latest Contact Info) Description 08/25/2022 4:30 PM EDT Laboratory Appointment Lab [address] [address] Spinal abscess; Bacteremia; E coli infection; Soft [...] EDT TH Visit (TeleHealth) Infectious Disease at [place] [phone] Lilli Joy APRN [facility] [place] [address] 12/03/2023 12:30 PM EDT Office Visit Infectious Disease at [place] [phone] Hollie Ambriz MD [facility] [place] [address] 12/03/2023 2:30 PM EDT Hospital Encounter Radiology at [place] [phone] Andrade Melvin MD [facility] [place] [address] documented as of this encounter Visit Diagnoses Diagnosis Spinal abscess Acute osteomyelitis, other specified site Bacteremia E coli infection Other and unspecified Escherichia coli (E. coli) Soft tissue abscess Cellulitis and abscess of other specified site Muscle abscess Other disorder of muscle, ligament, and fascia documented in this encounter Care Teams Senior Qa Tester Relationship Specialty Start Date End Date Lorna Bal APRN [address] [place] [address] PCP - General Family Medicine 05/27/18 documented as of this encounter
--- OUTSIDE RECORDS SUMMARY | 2023-11-23 16:36 | XMS_ITS | Encounter Summary ---
Author Organization [facility] [place] [address] Care Team Providers Care President [employer] Name Role Phone Lorna Bal APRN Primary Care Provider +1 -[phone] Encounter Details Date Type Department Care Team (Late st Contact Info) Description 08/07/2022 1:00 PM EDT TH Visit (TeleHealth) [place] [phone] Lilli Joy APRN [facility] [place] [address] Spinal abscess; Acute hematogenous osteomyelitis, unspecified site; [...] this encounter Progress Notes * Lilli Joy, BRANCH SERVICE REPRESENTATIVE - 08/07/2022 1:00 PM EDT .. INFECTIOUS [...] [Transparent Dressings] Itching and Dermatitis Please use [id number] ??? Penicillins Physical Exam: Deferred Labs: Lab [...] EDT TH Visit (TeleHealth) Infectious Disease at [place] [phone] Lilli Joy APRN [facility] [place] [address] 12/03/2023 12:30 PM EDT Office Visit Infectious Disease at [place] [phone] Hollie Ambriz MD [facility] [place] [address] 12/03/2023 2:30 PM EDT Hospital Encounter Radiology at [place] [phone] Andrade Melvin MD [facility] [place] [address] documented as of this encounter Visit Diagnoses [...] documented as of this encounter Care Teams President [employer] Relationship Specialty Start Date End Date Lorna Bal APRN [address] [place] [address] PCP - General Family Medicine 05/27/18 documented as of this encounter
--- OUTSIDE RECORDS SUMMARY | 2023-11-23 16:36 | XMS_ITS | Encounter Summary ---
Author Organization [facility] [place] [address] Care Team Providers Care Readiness Paraprofessional Name Role Phone Lorna Bal APRN Primary Care Provider +1 -[phone] Reason for Referral * Home Health Care (Routine) - Denied Specialty Diagnoses / Procedures Referred By Contac t Referred To Contact Diagnoses Spinal abscess [place] [address] [facility] [address] [place] [phone] Referral ID Status Reason Start Date Expiration Date V isits Requested Visits Authorized [id number] Denied Consult, Test & Treat 08/06/2022 08/06/2023 999 0 Encounter Details Date Type Department Care Team (Late st Contact Info) Description 08/06/2022 [place] [address] Curt Torres MD [place], [place] [id number] Spinal abscess Social History Tobacco Use Types Packs/Day Years Used Date Smoking Tobacco: Never Smokeless Tobacco: Never Comments:NO SMOKERS IN THE H OME Alcohol Use Standard Drinks/Week Comments No 0 (1 standard drink = 0.6 oz pur e alcohol) [facility] Inpatient Questions Answer Date Recorded Does [...] EDT TH Visit (TeleHealth) Infectious Disease at [address] Lilli Joy APRN [facility] [place] [address] 12/03/2023 12:30 PM EDT Office Visit Infectious Disease at [address] Hollie Ambriz MD [facility] [place] [address] 12/03/2023 2:30 PM EDT Hospital Encounter Radiology at [place] [address] Andrade Melvin MD [facility] [place] [address] Scheduled Referrals Name Type Priority Associated Diagnoses [...] documented as of this encounter Care Teams Readiness Paraprofessional Relationship Specialty Start Date End Date Lorna Bal APRN [address] [place] [address] PCP - General Family Medicine 05/27/18 documented as of this encounter
--- OUTSIDE RECORDS SUMMARY | 2023-11-23 16:36 | XMS_ITS | Encounter Summary ---
Author Organization [facility] Address [facility] [place] [address] Care Team Providers Care Correctional Counselor Name Role Phone Lorna Bal APRN Primary Care Provider +1 -[phone] Encounter Details Date Type Department Care Team (Late st Contact Info) Description 09/08/2022 Telephone [place] [address] Sergey Keane MD [facility] [place] [address] Social History Tobacco Use Types Packs/Day Years [...] moving forward. Patient was recently seen [place] [facility] [place]. I had the opportunity to speak with the attending physician Dr Patel on 09/03. At the time we discussed Mrs Cavazos clinical course and therapies provided here at [facility]. After our conversation [...] Visit (TeleHealth) [place] [address] Lilli Joy APRN [facility] [place] [address] 12/03/2023 12:30 PM EDT Office [place] [phone] Hollie Ambriz MD [facility] INF[place] [address] 12/03/2023 2:30 PM EDT Hospital [place] [address] Andrade Melvin MD [facility] DR INTERVENTIONAL [place] [address] documented as of this encounter Visit Diagnoses Not on filedocumented in this encounter Care Teams Correctional Counselor Relationship Specialty Start Date End Date Lorna Bal APRN [address] [place] [address] PCP - General Family Medicine 05/27/18 documented as of this encounter
--- OUTSIDE RECORDS SUMMARY | 2023-11-23 16:36 | XMS_ITS | Encounter Summary ---
Author Organization [facility] [place] [address] Care Team Providers Care Director Sales Training Name Role Phone Lorna Bal APRN Primary Care Provider +1 [phone] Reason for Referral * Diagnostic Test (Routine) - Closed Specialty Diagnoses / Procedures Referred By Contac t Referred To Contact Radiology Diagnoses Abscess Procedures CT Lumbar Spine w Contrast [place] [address] [facility] [place] [address] Referral ID Status Reason Start Date Expiration Date V isits Requested Visits Authorized [id number] Closed Specialty Service Requested 08/12/2022 02/12/2024 1 1 Reason for Visit * Diagnostic Test (Routine) - Closed Specialty Diagnoses / Procedures Referred By Contac t Referred To Contact Radiology Diagnoses Abscess Procedures CT Lumbar Spine w Contrast [place] [address] [facility] [place] [address] Referral ID Status Reason Start Date Expiration Date V isits Requested Visits Authorized [id number] Closed Specialty Service Requested 08/12/2022 02/12/2024 1 1 Encounter Details Date Type Department Care Team (Latest Contact Info) Description 08/13/2022 8:33 AM EDT - 08/13/2022 11:59 PM EDT Hospital [place] [address] [place] [address] Abscess Discharge Disposition: Home Social [...] EDT TH Visit (TeleHealth) Infectious Disease at [place] [phone] Lilli Joy APRN [facility] [place] [address] 12/03/2023 12:30 PM EDT Office Visit Infectious Disease at [place] [phone] Hollie Ambriz MD [facility] [place] [address] 12/03/2023 2:30 PM EDT Hospital [place] [address] Andrade Melvin MD [facility] DR [place] [address] documented as of this encounter [...] who have questions please contact the health medicare insurance specialist that requested your imaging first. ? [...] patients who have questions please contactthe health medicare insurance specialist that requested your imaging first. Jamshid Collins [...] mLs documented in this encounter Care Teams Director Sales Training Relationship Specialty Start Date End Date Lorna Bal APRN [address] [place] [address] PCP - General Family Medicine 05/27/18 documented as of this encounter
--- OUTSIDE RECORDS SUMMARY | 2023-11-23 16:36 | XMS_ITS | Encounter Summary ---
Author Organization [facility] [place] [address] Care Team Providers Care Head Silverman Name Role Phone Lorna Bal APRN Primary Care Provider +1 -[phone] Encounter Details Date Type Department Care Team [...] [facility] [place] [place] [address] Lilli Joy APRN [facility] [place] [address] 12/03/2023 12:30 PM EDT Office Visit Infectious Disease at [place] [phone] Hollie Ambriz MD [facility] [place] [address] 12/03/2023 2:30 PM EDT Hospital En[place] [address] Andrade Melvin MD [facility] [place] [address] documented as of this encounter Visit Diagnoses Not on filedocumented in this encounter Care Teams Head Silverman Relationship Specialty Start Date End Date Lorna Bal APRN [address] [place] [address] PCP - General Family Medicine 05/27/18 documented as of this encounter
--- OUTSIDE RECORDS SUMMARY | 2023-11-23 16:36 | XMS_ITS | Encounter Summary ---
Author Organization [facility] [place] [address] Care Team Providers Care Weight And Test Bar Clerk Name Role Phone Lorna Bal APRN Primary Care Provider +1 [phone] Encounter Details Date Type Department Care Team (Late st Contact Info) Description 08/06/2022 Telephone [place] [address] Halima García Social History Tobacco Use Types [...] - 08/06/2022 8:35 AM EDT Shonna from [facility] called. Pt's home healthcare orders need to be restarted and orders need to be placed for weekly lab draw and drainage care. documented in this encounter Plan of Treatment Upcoming Encounters Date Type Department Care Team (Late st Contact Info) Description 11/25/2023 2:00 PM EDT TH Visit (TeleHealth) Infectious Disease at [place] [phone] Lilli Joy APRN [facility] [place] [address] 12/03/2023 12:30 PM EDT Office Visit Infectious Disease at [place] [phone] Hollie Ambriz MD [facility] [place] [address] 12/03/2023 2:30 PM EDT Hospital [place] [address] Andrade Melvin MD [facility] [place] [address] documented as of this encounter Visit Diagnoses Not on filedocumented in this encounter Additional Health Concerns Infection Onset Date Last Indicated Resolved Time Enterovirus / Rhinovirus 07/28/2022 07/28/2022 8:09 PM EDT documented as of this encounter Care Teams Weight And Test Bar Clerk Relationship Specialty Start Date End Date Lorna Bal APRN [address] [place] [address] PCP - General Family Medicine 05/27/18 documented as of this encounter
--- OUTSIDE RECORDS SUMMARY | 2023-11-23 16:36 | XMS_ITS | Encounter Summary ---
Author Organization [facility] [place] [address] Care Team Providers Care Writer Technical Publications Name Role Phone Lorna Bal APRN Primary Care Provider +1 -[phone] Encounter Details Date Type Department Care Team (Late st Contact Info) Description 08/07/2022 Telephone [place] [phone] Mesha Mckeon, RN Social History Tobacco Use [...] EDT TH Visit (TeleHealth) Infectious Disease at [address]1000 Lilli Joy APRN [facility] [place] [address] 12/03/2023 12:30 PM EDT Office Visit Infectious Disease at [place] [address] Hollie Ambriz MD [facility] [place] [address] 12/03/2023 2:30 PM EDT Hospital [place] [address] Andrade Melvin MD [facility] INTERVENTION[place] [address] documented as of this encounter Visit Diagnoses Not on filedocumented in this encounter Additional Health Concerns Infection Onset Date Last Indicated Resolved Time Enterovirus / Rhinovirus 07/28/2022 07/28/2022 8:09 PM EDT documented as of this encounter Care Teams Writer Technical Publications Relationship Specialty Start Date End Date Lorna Bal APRN [address] [place] [address] PCP - General Family Medicine 05/27/18 documented as of this encounter
--- OUTSIDE RECORDS SUMMARY | 2023-11-23 16:36 | XMS_ITS | Encounter Summary ---
Author Organization [facility] [place] [address] Care Team Providers Care Student Accounts Manager Name Role Phone Lorna Bal APRN Primary Care Provider +1 -[phone] Encounter Details Date Type Department Care Team (Late st Contact Info) Description 09/03/2022 Notes Only Infectious Disease at [facility] [place] [phone] Mesha Mckeon, RN Social History Tobacco Use [...] RN - 09/03/2022 11:59 PM EDT This caption writer received called from patient's mom about concerns about her daughter's drains. She reported that they have stopped draining and was wondering how long we were keeping it in. I instructed her to call IR for a drain check. Mom verbalized understanding. She also stated that she took her to [place] for a second opinion. That doctor in [place] was concerned about pt and wanted a call back as well. This caption writer sent inbasket and routed secretaries notes from the Doctor in [place] to Shawn Woodard. Mom is very concerned about her daughters infection. Her end date is on 09/04. documented in this encounter Plan of Treatment Upcoming Encounters Date Type Department Care Team (Late st Contact Info) Description 11/25/2023 2:00 PM EDT TH Visit (TeleHealth) [place] [address] Lilli Joy APRN [facility] [place] [address] 12/03/2023 12:30 PM EDT Office Visit Infectious Disease at [place] [phone] Hollie Ambriz MD [facility] [place] [address] 12/03/2023 2:30 PM EDT Hospital Encounter Radiology at [place] [phone] Andrade Melvin MD [facility] [place] [address] documented as of this encounter Visit Diagnoses Not on filedocumented in this encounter Care Teams Student Accounts Manager Relationship Specialty Start Date End Date Lorna Bal APRN [address] [place] [address] PCP - General Family Medicine 05/27/18 documented as of this encounter
--- OUTSIDE RECORDS SUMMARY | 2023-11-23 16:36 | XMS_ITS | Encounter Summary ---
Author Organization [facility] [place] [address] Care Team Providers Care Regional Sales Director Name Role Phone Lorna Bal APRN Primary Care Provider +1 -[phone] Encounter Details Date Type Department Care Team (Latest Contact Info) Description 08/25/2022 Transcribe Orders [place] [phone] Lorna Bal APRN [address] [place], [place] [phone] Escherichia coli septicemia; Intraspinal abscess; Spinal cord [...] EDT TH Visit (TeleHealth) Infectious Disease at [place] [address] Lilli Joy APRN [facility] [place] [address] 12/03/2023 12:30 PM EDT Office Visit Infectious Disease at [place] [address] Hollie Ambriz MD [facility] [place] [address] 12/03/2023 2:30 PM EDT Hospital Encounter Radiology at [place] [address] Andrade Melvin MD [facility] [place] [address] documented as of this encounter Visit Diagnoses Diagnosis Escherichia coli septicemia Septicemia due to Escherichia coli (E. coli) Intraspinal abscess Spinal cord abscess Acute osteomyelitis, other specified site documented in this encounter Care Teams Regional Sales Director Relationship Specialty Start Date End Date Lorna Bal APRN [address] [place] [address] PCP - General Family Medicine 05/27/18 documented as of this encounter
--- OUTSIDE RECORDS SUMMARY | 2023-11-23 16:36 | XMS_ITS | Encounter Summary ---
Author Organization [facility] [place] [address] Care Team Providers Care News Photographer Name Role Phone Lorna Bal APRN Primary Care Provider +1 -[phone] Reason for Referral * Diagnostic Test (Routine) [...] sequela Procedures IR Drain Check/Change/Remove Jamaal Jenkins, [facility] [place] [address] [facility] [place] [address] Referral ID Status Reason Start Date Expiration Date Visits Requested Visits Authorized [id number] Pending Review Specialty Service Requested 08/25/2022 02/26/2024 1 1 * Diagnostic Test (Routine) - New Request Specialty Diagnoses / Procedures Referred By Contac t Referred To Contact Radiology Diagnoses Spinal abscess Procedures IR Drain Check/Change/Remove Hank Nunez PA [facility] [place] [address] [place] [address] Referral ID Status Reason Start Date Expiration Date Visits Requested Visits Authorized [id number] New Request Specialty Service Requested 08/21/2022 02/21/2024 1 1 Reason for Visit * Diagnostic Test (Routine) - New Request Specialty Diagnoses / Procedures Referred By Contac t Referred To Contact Radiology Diagnoses Spinal abscess Procedures IR Drain Check/Change/Remove Hank Nunez PA [facility] [place] [address] [place] [address] Referral ID Status Reason Start Date Expiration Date Visits Requested Visits Authorized [id number] New Request Specialty Service Requested 08/21/2022 02/21/2024 1 1 Encounter Details Date Type Department Care Team (Latest Contact Info) Description 08/25/2022 12:57 PM EDT - 08/25/2022 11:59 PM EDT Hospital [place] [address] Piter Self MD [facility] [place] [address] Spinal abscess; Abscess; Contracture of left elbow; [...] is during regular office hours, please call [phone]. If it is after regular office hours, or on weekends or holidays, please call [phone] and ask to speak to the Paying Teller applications packager for Interventional Radiology. XX You have received [...] of : 1995 AGE: 27 y.o. [address]: [address] [place] [address] Phone: [phone] (home) Mobile: Telephone Information: Referring Provider: Hank Nunez REASON FOR VISIT: Order Questions Answers Where will study be performed? [facility] Radiology [120] Reason for exam and [...] [Transparent Dressings] Itching and Dermatitis Please use [id number] ??? Penicillins Pertinent PMH: Patient Active Problem [...] dislodged and replaced on 07/24. Additional 8 Russian drain placed into adjacent L2/L3 collection at [...] All Drainage Procedures 06/25/2022 Mich Martino MD [facility] INTERVENTIONL RAD ??? IR ALL DRAINAGE PROCEDURES 07/04/2022 IR All Drainage Procedures 07/04/2022 Mich Martino MD [facility] INTERVENTIONL RAD ??? IR ALL DRAINAGE PROCEDURES 07/24/2022 IR All Drainage Procedures 07/24/2022 Anurag Kumar MD [facility] INTERVENTIONL RAD ??? IR DRAIN CHECK/CHANGE/REMOVE 07/01/2022 IR Drain Check/Change/Remove 07/01/2022 Jamaal Jenkins, DO [facility] INTERVENTIONL RAD ??? PRO APPLY OF HIP CASTS, TWO LEGS 08/15/2010 CAST APPLICATION, HIP SPICA, BOTH LEGS performed by BARRERA OLIVER at [facility] OR ? ? PRO I&D, POST SPINE, LUMB/SACR/LUMBOSAC N/A 05/20/2014 @I & D, OPEN, DEEP ABSCESS, LUMBAR, SACRAL, LUMBOSACRAL performed by Freddy Isbell MD at [facility] OR ? ? PRO I&D, POST SPINE, LUMB/SACR/LUMBOSAC N/A 05/26/2014 @I & D, OPEN, DEEP ABSCESS, LUMBAR, SACRAL, LUMBOSACRAL performed by Freddy Isbell MD at [facility] OR ??? PRO IMPACT TOOTH REMOV COMP BONY N/A 06/14/2018 SURGICAL EXTRACTIONS, REMOVAL OF IMPACTED TOOTH, COMPLETELY BONY (WRVU 1.93) performed by Keith Cotton MD at [facility] OSC ??? PRO OSTEOTOMY FEMUR SHAFT/SUPRACONDY 08/15/2010 ??OSTEOTOMY, FEMUR SHAFT OR SUPRACONDYLAR W/O FIXATION performed by BARRERA OLIVER at [facility] MAIN OR ??? PRO RECONSTRUC HIP SOCKET, RESEC FEM HEAD 08/15/2010 ??ACETABULOPLASTY (GIRDLESTONE), RESECTION FEMORAL HEAD, BILATERAL performed by BARRERA OLIVER Critical [facility] hospital OR ??? PRO REMOVAL DEEP IMPLANT 08/15/2010 REMOVAL IMPLANT, DEEP, BRUNO performed by BARRERA OLIVER at [facility] MAIN OR ??? PRO REMOVAL ERUPTED TOOTH WITH ELEVATION OF MUCOPERIOSTEAL FLAP N/A 06/14/2018 SURGICAL EXTRACTIONS REQUIRING ELEVATION OF MUCOPERIOSTEAL FLAP AND REMOVAL OF BONE OR SECTION OF TOOTH (WRVU 1.09) performed by Keith Cotton MD at [facility] OSC ??? PRO REMOVE INFUSN DEVICE/PUMP N/A 05/11/2014 REMOVAL OF SPINE INFUSION PUMP performed by Jamaal Samuel MD at [facility] OR ??? PRO REMOVE SPINAL CANAL CATHETER N/A 05/11/2014 REMOVAL OF INTRATHECAL OR EPIDURAL CATHETER performed by Jamaal Samuel MD at [facility] OR ??? PRO REPR, DURAL/CSF LEAK, NOT REQ LAMINECTOMY N/A 05/20/2014 @REPAIR DURAL\CSF LEAK,NOT REQUIRING LAMINECTOMY performed by Freddy Isbell MD at [facility] OR Medications: Current Outpatient Medications on File [...] EDT TH Visit (TeleHealth) Infectious Disease at [place] [phone] Lilli Joy APRN [facility] [place] [address] 12/03/2023 12:30 PM EDT Office Visit Infectious Disease at [place] [phone] Hollie Ambriz MD [facility] [place] [address] 12/03/2023 2:30 PM EDT Hospital Encounter Radiology at [place] [phone] Andrade Melvin MD [facility] [place] [address] documented as of this encounter Procedures Procedure [...] the entire procedure. ?? Jamaal Jenkins DO [facility] IR ORDERABLES * IR Drain Check/Change/Remove (08/25/2022 [...] dislodged and replaced on 07/24. Additional 8 Russian drain placed into adjacent L2/L3 collection at [...] throughout. ?? More Caudal Lumbar Drainage Catheter: Line Mechanic fluoroscopic images were obtained. ??Contrast was injected through the catheter and repeat fluoroscopic images were obtained. The drainage catheter was left in place. ??A sterile dressing was applied. ?? More Cranial Lumbar Drainage Catheter: Line Mechanic fluoroscopic images were obtained. ??Contrast was injected [...] mLs documented in this encounter Care Teams News Photographer Relationship Specialty Start Date End Date Lorna Bal APRN [address] [place] [address] PCP - General Family Medicine 05/27/18 documented as of this encounter
--- OUTSIDE RECORDS SUMMARY | 2023-11-23 16:36 | XMS_ITS | Encounter Summary ---
[place] [address] Care Team Providers Care Maintenance Electrician Name Role Phone Lorna Bal APRN Primary Care Provider +1 -[phone] Encounter Details Date Type Department Care Team (Late st Contact Info) Description 08/25/2022 Transcribe [place] [phone] Lorna Bal APRN [address] [place], [place] [address] Social History Tobacco Use Types Packs/Day Years [...] EDT TH Visit (TeleHealth) Infectious Disease at [place] [phone] Lilli Joy APRN [facility] [place] [address] 12/03/2023 12:30 PM EDT Office [place] [address] Hollie Ambriz MD [facility] [place] [address] 12/03/2023 2:30 PM EDT Hospital [place] [address] Andrade Melvin MD [facility] [place] [address] documented as of this encounter Visit Diagnoses Not on filedocumented in this encounter Care Teams Maintenance Electrician Relationship Specialty Start Date End Date Lorna Bal APRN [address] [place] [address] PCP - General Family Medicine 05/27/18 documented as of this encounter
--- OUTSIDE RECORDS SUMMARY | 2023-11-23 16:36 | XMS_ITS | Encounter Summary ---
Author Organization [facility] [address] Care Team Providers Care Retail Support Specialist Name Role Phone Lorna Bal APRN Primary Care Provider +1 -[phone] Encounter Details Date Type Department Care Team (Latest Contact Info) Description 08/11/2022 Travel Social History Tobacco Use Types Packs/Day Years Used Date Smoking Tobacco: Never Smokeless Tobacco: Never Comments:NO SMOKERS IN THE H OME Alcohol Use Standard Drinks/Week Comments No 0 (1 standard drink = 0.6 oz pur e alcohol) [facility] Inpatient Questions Answer Date Recorded Does [...] (TeleHealth) Infectious Disease at [facility] [place] [address] Lilli Joy APRN [facility] [place] [address] 12/03/2023 12:30 PM EDT Office Visit Infectious Disease at [place] [phone] Hollie Ambriz MD [facility] [place] [address] 12/03/2023 2:30 PM EDT Hospital [place] [address] Andrade Melvin MD [facility] [place] [address] documented as of this encounter Visit Diagnoses Not on filedocumented in this encounter Care Teams Retail Support Specialist Relationship Specialty Start Date End Date Lorna Bal APRN [address] [place] [address] PCP - General Family Medicine 05/27/18 documented as of this encounter
--- OUTSIDE RECORDS SUMMARY | 2023-11-23 16:36 | XMS_ITS | Encounter Summary ---
Author Organization [facility] Address [facility] [place] [place] [address] Care Team Providers Care Blueprint Duplicator Name Role Phone Lorna Bal APRN Primary Care Provider [phone] Encounter Details Date Type Department Care Team (Late st Contact Info) Description 09/10/2022 10:00 AM EDT Office Visit Infectious [place] [id number] Sergey Keane MD [facility] [place] [address] Spinal abscess; group home 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; Soft tissue abscess [...] 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 I had an extensive conversation with [facility] provider regarding patient's clinical course at and [...] for drain check and spine surgery at [facility] for possible surgical Options. They would like to continue receiving ID care at [facility] at least until surgical options are explored at outside institution. Plan Based on patient clinical presentation, review of data and chart my plan is as follows: -Continue doxycycline 100 mg PO BID -Avoid sunlight exposure while on doxyxycline -Pending evaluation by surgery at [facility], at that point they will decide if they continue care at or will see ID at other institution -Alarm signs were provided, come to the ED, call the office or 911 if initial symptoms return, fever, chills, associated with nausea, vomiting profuse diarrhea, confusion decrease urinary volumes Case discussed with Dr. Jamar Dasilva Follow up: As needed Sergey Doan MD Infectious Disease Fellow [facility] 09/14/2022 Chronic suppression Behaving as infection [...] EDT TH Visit (TeleHealth) Infectious [place] [address] Lilli Joy APRN [facility] [place] [address] 12/03/2023 12:30 PM EDT Office Visit Infectious [place] [address] Hollie Ambriz MD [facility] [place] [address] 12/03/2023 2:30 PM EDT Hospital Encounter [place] [address] Andrade Melvin MD [facility] [place] [address] documented as of this encounter Visit Diagnoses Diagnosis Spinal abscess Acute osteomyelitis, other specified site 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
--- OUTSIDE RECORDS SUMMARY | 2023-11-23 16:37 | XMS_ITS | Encounter Summary ---
Author Organization [facility] [place] [address] Care Team Providers Care Poultry Culler Name Role Phone Lorna Bal APRN Primary Care Provider [phone] Encounter Details Date Type Department Care Team (Late st Contact Info) Description 07/22/2022 Orders [place] [address] Yury Gibbons MD [facility] [place] [address] Social History Tobacco Use Types Packs/Day Years [...] EDT TH Visit (TeleHealth) Infectious Disease at [place] [id number] Lilli Joy APRN [facility] [place] [address] 12/03/2023 12:30 PM EDT Office Visit [place] [address] Hollie Ambriz MD [facility] [place] [address] 12/03/2023 2:30 PM EDT Hospital Encounter [place] [address] Andrade Melvin MD [facility] [place] [address] documented as of this encounter Visit Diagnoses Not on filedocumented in this encounter Care Teams Poultry Culler Relationship Specialty Start Date End Date Lorna Bal APRN [address] [place] [address] PCP - General Family Medicine 05/27/18 documented as of this encounter
--- OUTSIDE RECORDS SUMMARY | 2023-11-23 16:37 | XMS_ITS | Encounter Summary ---
[place] [address] Care Team Providers Care Welding Instructor Name Role Phone Lorna Bal APRN Primary Care Provider [phone] Reason for Referral * Diagnostic Test (Routine) - New Request Specialty Diagnoses / Procedures Referred By Contac t Referred To Contact Radiology Diagnoses Spinal abscess Procedures IR Drain Check/Change/Remove Lucho Burciaga MD [facility] [address] RADIOLOGY [place] [address] [place] [address] Referral ID Status Reason Start Date Expiration Date Visits Requested Visits Authorized [id number] New Request Specialty Service Requested 07/24/2022 01/25/2024 1 1 Reason for Visit * Reason Comments Wound Check * Auth/Cert (Routine) Specialty Diagnoses / Procedures Referred By Contac t Referred To Contact Diagnoses Abscess Procedures EMERGENCY Eddi Samuel MD [facility] [place] [address] [facility] Referral ID Status Reason Start Date Expiration Date Visits Re quested Visits Authorized [id number] 1 1 Encounter Details Date Type Department Care Team (Latest Contact Info) Description 07/22/2022 5:43 PM EDT - 08/01/2022 5:12 PM EDT Hospital Encounter Medical Specialites Unit Level 1 [place] [id number] Alek Tavares MD [facility] [place] [address] Eddi Váz[place] [address] [place] [address] [place] [address] 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 Dx); QT prolongation; Abscess [...] documented in this encounter Discharge Summaries * Jody Collins MD - 08/01/2022 1:46 PM EDT Images from the original note were not included. Discharge Summary Patient Name: Tana Cavazos Patient Age: 27 y.o. Language: Indonesian Race: White Ethnicity: Not nor Admit date: 07/22/2022 Discharge date and time: 08/01/2022 1:46 PM Attending Physician: Jody Collins MD Discharge Physician: Jody Collins MD Follow-up Recommendations for Providers: ?? [...] please contact your inpatient physician through the [facility] Printer Machine . Issues afterhours and on weekends will [...] Lab Data: Labs: Recent Labs 08/01/22 0547 07/31/22 0453 07/30/22 0514 WBC 5.3 4.8 4.1 HGB 9.9* 10.3* 9.9* HCT 32.2* 33.3* 31.7* PLATELET 329 302 305 Recent Labs 07/31/223 07/28/22232607/28/22 0502 NA 138 138 138 K 3.9 [...] [Transparent Dressings] Itching and Dermatitis Please use [id number] ??? Penicillins Immunizations Given this Hospitalization: Immunization History Administered Date(s) Administered ??? Influenza Vaccine (Novel) [id number], Injectable 02/25/2009 ??? Influenza Vaccine w/Preservative, Split [...] her to stop it. She might require penitentiary antibiotics to suppress infection. At some point [...] Center 08/07/2022 1:00 PM Lilli Joy APRN [facility] ID 5C [facility] 08/11/2022 12:50 PM [facility] IR ROOM 6 IR [facility] Rad 08/13/2022 11:30 AM Sergey Keane MD [facility] ID 5C [facility] Non-[facility] Follow-up Appointments: N/A Your Inpatient Doctor(s) at [facility]: ALEK TAVARES, ERNESTO MCCARTHY, EDDI BELL, JODY Kwong For questions regarding issues relating to your hospitalization on the Hospital Medicine Service, please contact your inpatient physician through the [facility] Printer Machine [phone]. Issues after hours and on weekends will be handled by the Hospitalist staff on-call. Your Primary Care Provider Lorna Bal APRN [phone] General Instructions INTERVENTIONAL RADIOLOGY DRAIN CARE INSTRUCTIONS [...] is during regular office hours, please call [phone]. If it is after regular office hours, or on weekends or holidays, please call [phone] and ask to speak to the [employer] Sorting Machine Feeder recreation establishment manager for Interventional Radiology. XX You have received [...] PM Lilli Joy APRN Infectious Disease at [facility] Arrive at: Home [phone] Please do not come in for this visit. Your provider will call you at the number you provided. 08/11/2022 12:50 PM [facility] IR ROOM 6 Radiology at [facility] Arrive at: 3Z RADIOLOGY [phone] Please expect a call from a radiology nurse within 3 days of your exam, you will need to follow theinstructions given at that time. 08/13/2022 11:30 AM Sergey Keane MD Infectious Disease at [facility] Arrive at: Sport Intern Area [phone] Future Orders Complete By Expires IR Drain Check/Change/Remove [[id number] Custom] 08/07/2022 (Approximate) 02/06/2023 Process Instructions: Scheduling Instructions: Comments: Questions: Where will study be performed?: [facility] Radiology Reason for exam and clinical [...] ?: No CT Lumbar Spine w Contrast [[id number] Custom] 08/08/2022 02/07/2023 Process Instructions: Scheduling Instructions: Questions: Clinical information / foster questions for radiologist: eval for interval changes in abscesses s/p drain placement Where will study be performed?: [facility] Radiology Is the patient ?: No Stat read required?: Does patient require sedation?: GA rationale: Date of injury if applicable: Recurring Lab Work Interval Expires CBC (with Diff) [ULC432 Custom] Once a week until 08/02/2023 08/02/2023 Process Instructions: INCLUDES: WBC, RBC, Hgb, Hct, Platelets, RBC Indices and Differential Scheduling Instructions: Comments: Questions: Comprehensive metabolic panel (non-fasting) [LAB17 Custom] Once a week until 08/02/2023 08/02/2023 Process Instructions: INCLUDES: Calcium, T Protein, Albumin, AST, ALT, Alk Phos, T Bili, BUN, Creat, GFR, Glucose, Lytes. Scheduling Instructions: Comments: Questions: CRP, acute inflammation [[id number] Custom] Once a week until 08/02/2023 08/02/2023 [...] is during regular office hours, please call [phone]. If it is after regular office hours, or on weekends or holidays, please call [phone] and ask to speak to the C[employer] Sorting Machine Feeder recreation establishment manager for Interventional Radiology. XX You have received [...] drain; in 24 hours) * Patient Instructions* Jody Collins MD - 08/01/2022 1:14 PM EDT [...] her to stop it. She might require assistant terminal manager antibiotics to suppress infection. At some point [...] Center 08/07/2022 1:00 PM Lilli Joy APRN [facility] ID 5C [facility] 08/11/2022 12:50 PM [facility] IR ROOM 6 [facility] Rad 08/13/2022 11:30 AM Sergey Keane MD [facility] ID 5C [facility] Non-[facility] Follow-up Appointments: N/A Your Inpatient Doctor(s) at [facility]: ALEK TAVARES ABHIJIT S STEWART, EMILY A O'DOWD, EDDI BELL TIMOTHY R For questions regarding issues relating to your hospitalization on the Hospital Medicine Service, please contact your inpatient physician through the [facility] Printer Machine [phone]. Issues after hours and on weekends will be handled by the Hospitalist staff on-call. Your Primary Care Provider Lorna Bal, PERIPHERAL EQUIPMENT OPERATOR [phone] documented in this encounter Medications at Time [...] on 08/07/22 Discussed with attending, Dr. Vance Lundberg, ID Fellow Green Team Pager: [phone] I examined the patient independently of Dr. [...] a hospital length of stay nutrition evaluation. Division Sales Manager spoke with nursing d/tpt status. Per documentation patient has excellent PO intakes recorded at 75-100% over the past 4 days. According to dining services software they have ordered btwn 1608-3033kcals/day within the sameduration. Pt is eating great with caregiver assistance and is completing 75% of food received per RN. Division Sales Manager unable to assess weight d/t only [...] consulted in the interim. ALEJANDRO Roque * Jody Collins MD - 08/01/2022 7:23 AM EDT [...] spent >30 minutes (Day of Discharge Code 68825) involved in the final examination of the patient, discussion of the hospital stay, instructions for continuing care to all relevant caregivers, and preparation of discharge records, prescriptions and referral forms. Plans ? Discharge to home ? Follow-up scheduled with infectious diseases, IR ? Please see the Discharge Summary for complete details of any medication changes and additional plans. Jody Collins MD [facility] Medicine * Yandy Masters RN - 08/01/2022 2:01 AM EDTSummary: Nursing OUTCOME EVALUATION NOTE: OUTCOME SUMMARY: Alert, non-verbal, hx of paraplegia, vss, 2a/L, no s+s of pain. Patient is resting comfortably in bed, Fannie (brand executive) at bedside and attentive to patient, 2 [...] Lundberg, DO ID Fellow Green Team Pager: [phone] I examined the patient independently of Dr. [...] placement possible plastics involvement. Joe Harrison MD [facility] - Department of Orthopaedic Surgery Front End Developer Designer - Department of Orthopedic Surgery / Academics and Research Hollow Handle Knife Assembler Professor - [facility] 08/01/2022 * Jody Collins MD - 07/31/2022 7:34 AM EDT [...] drain x 2, oropeza, PIV Anticipated Disposition: penitentiary care facility Code Status: Attempt Cardiopulmonary Resuscitation [...] of two midnights or is on the [facility] inpatient only procedure list (status C) due to: monitoring of fluid status given an inability to regulate fluid balance and the need for administration or restriction of fluids Team Pager( Coverage 17/11): #[phone] PCP: Lorna Bal, PERIPHERAL EQUIPMENT OPERATOR [phone] Jody Collins MD 07/31/2022 * Paige Gonzalez RN [...] ADLs]: Hands on Surveillance [continuous indirect monitoring]: [facility] Room near nurses' station Rounding [...] Lundberg, DO ID Fellow Green Team Pager: [phone] I interviewed and examined the patient independently [...] N/A CARE PLAN GOAL OUTCOME EVALUATION: * Jody Collins MD - 07/30/2022 11:31 AM EDT Hospital Medicine Attending Daily Progress Note Admit Date: 07/22/2022 Hospital Day 8 days Subjective Interval History: ??? No acute events ??? Overnight, cultures from 07/28 became positive for GNR's (not yet identified) [...] Identification Panel by PCR Refer to link [email or web address] for a complete list of organisms. Identification [...] drain x 2, oropeza, PIV Anticipated Disposition: penitentiary care facility Code Status: Attempt Cardiopulmonary Resuscitation [...] of two midnights or is on the [facility] inpatient only procedure list (status C) due to: monitoring of fluid status given an inability to regulate fluid balance and the need for administration or restriction of fluids Team Pager(MD Coverage 17/11): #[phone] PCP: Lorna Bal, PERIPHERAL EQUIPMENT OPERATOR [phone] Jody Collins MD 07/30/2022 * Shawn Woodard MD [...] Lundberg DO ID Fellow Green Team Pager: [phone] I interviewed and examined the patient independently [...] is available ([facility] already scheduled follow-up) * Jody Collins MD - 07/29/2022 1:27 PM EDT [...] Hospital Problems No resolved problems to display. [facility] Active Non-Hospital Problems Diagnosis ??? Spinal abscess [...] future testing is required, contact the Microbiology Bridge Ironworker. * No growth at 5 days. No [...] Prophylaxis: LMWH LDA: CARMELLA drain x 2, roopeza, PIV Anticipated Disposition: assistant terminal manager care facility Code Status: Attempt Cardiopulmonary Resuscitation [...] of two midnights or is on the [facility] inpatient only procedure list (status C) due to: monitoring of fluid status given an inability to regulate fluid balance and the need for administration or restriction of fluids Team Pager( Coverage 17/11): #[phone] PCP: Lorna Bal, PERIPHERAL EQUIPMENT OPERATOR [phone] Jody Collins MD 07/29/2022 * Jody Collins MD - 07/28/2022 7:31 AM EDT [...] -- -- -- 98 % -- 07/27/22 1645 -- (!) 118 bpm -- -- -- [...] future testing is required, contact the Microbiology Bridge Ironworker. * No growth at 5 days. No [...] drain x 2, oropeza, PIV Anticipated Disposition: assistant terminal manager care facility Code Status: Attempt Cardiopulmonary Resuscitation [...] of two midnights or is on the [facility] inpatient only procedure list (status C) due to: monitoring of fluid status given an inability to regulate fluid balance and the need for administration or restriction of fluids Team Pager(MD Coverage 17/11): #[phone] PCP: Lorna Bal, PERIPHERAL EQUIPMENT OPERATOR [phone] Jody Collins MD 07/28/2022 * Margy Mtz RN [...] sensory deficits provided, if applicable: N/A * Jody Collins MD - 07/27/2022 7:32 AM EDT [...] future testing is required, contact the Microbiology Bridge Ironworker. * No growth at 5 days. No [...] drain x 2, oropeza, PIV Anticipated Disposition: penitentiary care facility Code Status: Attempt Cardiopulmonary Resuscitation [...] of two midnights or is on the [facility] inpatient only procedure list (status C) due to: monitoring of fluid status given an inability to regulate fluid balance and the need for administration or restriction of fluids Team Pager( Coverage 17/11): #[phone] PCP: Lorna Bal, PERIPHERAL EQUIPMENT OPERATOR [phone] Jody Collins MD 07/27/2022 * Citlali Mcdonald RN [...] N/A CARE PLAN GOAL OUTCOME EVALUATION: * Jody Collins MD - 07/26/2022 7:25 AM EDT [...] future testing is required, contact the Microbiology Bridge Ironworker. * No growth at 5 days. No [...] drain x 2, oropeza, PIV Anticipated Disposition: penitentiary care facility Code Status: Attempt Cardiopulmonary Resuscitation [...] of two midnights or is on the [facility] inpatient only procedure list (status C) due to: monitoring of fluid status given an inability to regulate fluid balance and the need for administration or restriction of fluids Team Pager( Coverage 17/11): #[phone] PCP: Lorna Bal, PERIPHERAL EQUIPMENT OPERATOR [phone] Jody Collins MD 07/26/2022 * Citlali Mcdonald RN [...] the same area she presented returned to [facility] on 07/22, a repeated CT of the [...] Sergey Doan MD Infectious Disease Fellow Pager [phone] 07/25/22 (Attending addendum to follow) Associated attestation [...] MD Staff Physician in Infectious Diseases * Jody Collins MD - 07/25/2022 7:36 AM EDT [...] future testing is required, contact the Microbiology Bridge Ironworker. * No growth at 5 days. No [...] drain x 2, oropeza, PIV Anticipated Disposition: penitentiary care facility Code Status: Attempt Cardiopulmonary Resuscitation [...] of two midnights or is on the [facility] inpatient only procedure list (status C) due to: monitoring of fluid status given an inability to regulate fluid balance and the need for administration or restriction of fluids Team Pager( Coverage 17/11): #[phone] PCP: Lorna Bal, PERIPHERAL EQUIPMENT OPERATOR [phone] Jody Collins MD 07/25/2022 * Anamika Todd PA [...] Todd PA-C Interventional Radiology IR Team Pager [phone] * Citlali Mcdonald RN - 07/25/2022 4:46 [...] of : 1995 AGE: 27 y.o. [address]: [address] [place] [address] Phone: [phone] (home) Mobile: Telephone Information: Referring Provider: Unknown [...] [Transparent Dressings] Itching and Dermatitis Please use [id number] ??? Penicillins Pertinent PMH: Patient Active Problem [...] - DVT PPx: lovenox - Disposition: her assistant terminal manager care facility - Family support: mother and her assistant terminal manager care providers - Code Status: Attempt Cardiopulmonary Resuscitation - Inpatient IPI Certification I certify that I am a D-H credentialed attending provider with admitting privileges and that the patient meets or has met medical necessity to require an inpatient IPI level of care meeting a minimumof two midnights or is on the [facility] inpatient only procedure list (status C) due to: monitoring of fluid status given an inability to regulate fluid balance and the need for administration or restriction of fluids Ernesto Willingham MD TEAM/PAGER:[phone] Subjective/24hr events: Says yes to most questions. [...] for the following: Recent Labs 07/24/22 0525 07/23/2229907/22/221911 WBC 4.4 6.2 5.6 HGB 9.6* 10.5* 11.2* HCT 31.4* 32.7* 36.2 PLATELET 343 364* 449* Recent Labs 07/24/22 0525 07/23/220 07/22/221911 NA 138 141 139 K 3.9 [...] future testing is required, contact the Microbiology Bridge Ironworker. * No growth at 5 days. No [...] who have questions please contact the health occasional caregiver that requested your imaging first. Electronically signed by: Jamaal Villafuerte [facility] ([phone]), at 07/22/2022 8:03 PM Medications: Scheduled Meds: [...] 0.9 % (flush), lidocaine, acetaminophen * Ernesto Willnigham MD - 07/23/2022 11:11 AM EDT Hospital [...] - DVT PPx: lovenox - Disposition: her assistant terminal manager care facility - Family support: mother and her assistant terminal manager care providers - Code Status: Attempt Cardiopulmonary Resuscitation - Inpatient IPI Certification I certify that I am a D-H credentialed attending provider with admitting privileges and that the patient meets or has met medical necessity to require an inpatient IPI level of care meeting a minimumof two midnights or is on the [facility] inpatient only procedure list (status C) due to: monitoring of fluid status given an inability to regulate fluid balance and the need for administration or restriction of fluids Ernesto Willingham MD TEAM/PAGER:[phone] Subjective/24hr events: Says yes to most questions. [...] future testing is required, contact the Microbiology Bridge Ironworker. * No growth at 5 days. No [...] who have questions please contact the health occasional caregiver that requested your imaging first. Electronically signed by: Jamaal Villafuerte [facility] ([phone]), at 07/22/2022 8:03 PM Medications: Scheduled Meds: [...] All Drainage Procedures 06/25/2022 Mich Martino MD [facility] INTERVENTIONL RAD ??? IR ALL DRAINAGE PROCEDURES 07/04/2022 IR All Drainage Procedures 07/04/2022 Mich Martino MD [facility] INTERVENTIONL RAD ??? IR DRAIN CHECK/CHANGE/REMOVE 07/01/2022 IR Drain Check/Change/Remove 07/01/2022 Jamaal Jenkins, DO [facility] INTERVENTIONL RAD ??? PRO APPLY OF HIP CASTS, TWO LEGS 08/15/2010 CAST APPLICATION, HIP SPICA, BOTH LEGS performed by YAS OLIVER at [facility] OR ? ? PRO I&D, POST SPINE, LUMB/SACR/LUMBOSAC N/A 05/20/2014 @I & D, OPEN, DEEP ABSCESS, LUMBAR, SACRAL, LUMBOSACRAL performed by Freddy Isbell MD at [facility] MAIN OR ? ? PRO I&D, POST SPINE, LUMB/SACR/LUMBOSAC N/A 05/26/2014 @I & D, OPEN, DEEP ABSCESS, LUMBAR, SACRAL, LUMBOSACRAL performed by Freddy Isbell MD at [facility] OR ??? PRO IMPACT TOOTH REMOV COMP BONY N/A 06/14/2018 SURGICAL EXTRACTIONS, REMOVAL OF IMPACTED TOOTH, COMPLETELY BONY (WRVU 1.93) performed by Keith Cotton MD at [facility] OSC ??? PRO OSTEOTOMY FEMUR SHAFT/SUPRACONDY 08/15/2010 ??OSTEOTOMY, FEMUR SHAFT OR SUPRACONDYLAR W/O FIXATION performed by YAS OLIVER at [facility] OR ??? PRO RECONSTRUC HIP SOCKET, RESEC FEM HEAD 08/15/2010 ??ACETABULOPLASTY (GIRDLESTONE), RESECTION FEMORAL HEAD, BILATERAL performed by YAS OLIVER [facility] OR ??? PRO REMOVAL DEEP IMPLANT 08/15/2010 REMOVAL IMPLANT, DEEP, BRUNO performed by YAS OLIVER at [facility] OR ??? PRO REMOVAL ERUPTED TOOTH WITH ELEVATION OF MUCOPERIOSTEAL FLAP N/A 06/14/2018 SURGICAL EXTRACTIONS REQUIRING ELEVATION OF MUCOPERIOSTEAL FLAP AND REMOVAL OF BONE OR SECTION OF TOOTH (WRVU 1.09) performed by Keith Cotton MD at [facility] OSC ??? PRO REMOVE INFUSN DEVICE/PUMP N/A 05/11/2014 REMOVAL OF SPINE INFUSION PUMP performed by Jamaal Samuel MD at [facility] OR ??? PRO REMOVE SPINAL CANAL CATHETER N/A 05/11/2014 REMOVAL OF INTRATHECAL OR EPIDURAL CATHETER performed by Jamaal Samuel MD at [facility] OR ??? PRO REPR, DURAL/CSF LEAK, NOT REQ LAMINECTOMY N/A 05/20/2014 @REPAIR DURAL\CSF LEAK,NOT REQUIRING LAMINECTOMY performed by Freddy Isbell MD at [facility] MA[facility] OR Medications: No current facility-administered [...] All Drainage Procedures 06/25/2022 Mich Martino MD [facility] INTERVENTION[facility] RAD ??? IR ALL DRAINAGE PROCEDURES 07/04/2022 IR All Drainage Procedures 07/04/2022 Mich Martino MD [facility] RAD ??? IR DRAIN CHECK/CHANGE/REMOVE 07/01/2022 IR Drain Check/Change/Remove 07/01/2022 Jamaal Jenkins, DO [facility] RAD ??? PRO APPLY OF HIP CASTS, TWO LEGS 08/15/2010 CAST APPLICATION, HIP SPICA, BOTH LEGS performed by YAS OLIVER at [facility] OR ? ? PRO I&D, POST SPINE, LUMB/SACR/LUMBOSAC N/A 05/20/2014 @I & D, OPEN, DEEP ABSCESS, LUMBAR, SACRAL, LUMBOSACRAL performed by Freddy Isbell MD at [facility] OR ? ? PRO I&D, POST SPINE, LUMB/SACR/LUMBOSAC N/A 05/26/2014 @I & D, OPEN, DEEP ABSCESS, LUMBAR, SACRAL, LUMBOSACRAL performed by Freddy Isbell MD at [facility] OR ??? PRO IMPACT TOOTH REMOV COMP BONY N/A 06/14/2018 SURGICAL EXTRACTIONS, REMOVAL OF IMPACTED TOOTH, COMPLETELY BONY (WRVU 1.93) performed by Keith Cotton MD at [facility] ??? PRO OSTEOTOMY FEMUR SHAFT/SUPRACONDY 08/15/2010 ??OSTEOTOMY, FEMUR SHAFT OR SUPRACONDYLAR W/O FIXATION performed by YAS OLIVER at [facility] OR ??? PRO RECONSTRUC HIP SOCKET, RESEC FEM HEAD 08/15/2010 ??ACETABULOPLASTY (GIRDLESTONE), RESECTION FEMORAL HEAD, BILATERAL performed by YAS OLIVER [facility] OR ??? PRO REMOVAL DEEP IMPLANT 08/15/2010 REMOVAL IMPLANT, DEEP, BRUNO performed by YAS OLIVER at [facility] OR ??? PRO REMOVAL ERUPTED TOOTH WITH ELEVATION OF MUCOPERIOSTEAL FLAP N/A 06/14/2018 SURGICAL EXTRACTIONS REQUIRING ELEVATION OF MUCOPERIOSTEAL FLAP AND REMOVAL OF BONE OR SECTION OF TOOTH (WRVU 1.09) performed by Keith Cotton MD at [facility] ??? PRO REMOVE INFUSN DEVICE/PUMP N/A 05/11/2014 REMOVAL OF SPINE INFUSION PUMP performed by Jamaal Samuel MD at [facility] OR ??? PRO REMOVE SPINAL CANAL CATHETER N/A 05/11/2014 REMOVAL OF INTRATHECAL OR EPIDURAL CATHETER performed by Jamaal Samuel MD at [facility] OR ??? PRO REPR, DURAL/CSF LEAK, NOT REQ LAMINECTOMY N/A 05/20/2014 @REPAIR DURAL\CSF LEAK,NOT REQUIRING LAMINECTOMY performed by Freddy Isbell MD at [facility] MA[facility] OR Medications: No current facility-administered medications [...] quadriplegia ID: 27 y.o. Female presents to [facility] with increased drainage from prior lumbar subcutaneous [...] All Drainage Procedures 06/25/2022 Mich Martino MD [facility] INTERVENT[facility] RAD ??? IR ALL DRAINAGE PROCEDURES 07/04/2022 IR All Drainage Procedures 07/04/2022 Mich Martino MD [facility] INTERVENT[facility] RAD ??? IR DRAIN CHECK/CHANGE/REMOVE 07/01/2022 IR Drain Check/Change/Remove 07/01/2022 Jamaal Jenkins, DO [facility] INTERVENT[facility] RAD ??? PRO APPLY OF HIP CASTS, TWO LEGS 08/15/2010 CAST APPLICATION, HIP SPICA, BOTH LEGS performed by YAS OLIVER at [facility] OR ? ? PRO I&D, POST SPINE, LUMB/SACR/LUMBOSAC N/A 05/20/2014 @I & D, OPEN, DEEP ABSCESS, LUMBAR, SACRAL, LUMBOSACRAL performed by Freddy Isbell MD at [facility] OR ? ? PRO I&D, POST SPINE, LUMB/SACR/LUMBOSAC N/A 05/26/2014 @I & D, OPEN, DEEP ABSCESS, LUMBAR, SACRAL, LUMBOSACRAL performed by Freddy Isbell MD at [facility] OR ??? PRO IMPACT TOOTH REMOV COMP BONY N/A 06/14/2018 SURGICAL EXTRACTIONS, REMOVAL OF IMPACTED TOOTH, COMPLETELY BONY (WRVU 1.93) performed by Keith Cotton MD at [facility] ??? PRO OSTEOTOMY FEMUR SHAFT/SUPRACONDY 08/15/2010 ??OSTEOTOMY, FEMUR SHAFT OR SUPRACONDYLAR W/O FIXATION performed by YAS OLIVER at [facility] OR ??? PRO RECONSTRUC HIP SOCKET, RESEC FEM HEAD 08/15/2010 ??ACETABULOPLASTY (GIRDLESTONE), RESECTION FEMORAL HEAD, BILATERAL performed by YAS OLIVER [facility] OR ??? PRO REMOVAL DEEP IMPLANT 08/15/2010 REMOVAL IMPLANT, DEEP, BRUNO performed by YAS OLIVER at [facility] OR ??? PRO REMOVAL ERUPTED TOOTH WITH ELEVATION OF MUCOPERIOSTEAL FLAP N/A 06/14/2018 SURGICAL EXTRACTIONS REQUIRING ELEVATION OF MUCOPERIOSTEAL FLAP AND REMOVAL OF BONE OR SECTION OF TOOTH (WRVU 1.09) performed by Keith Cotton MD at [facility] ??? PRO REMOVE INFUSN DEVICE/PUMP N/A 05/11/2014 REMOVAL OF SPINE INFUSION PUMP performed by Jamaal Samuel MD at [facility] OR ??? PRO REMOVE SPINAL CANAL CATHETER N/A 05/11/2014 REMOVAL OF INTRATHECAL OR EPIDURAL CATHETER performed by Jamaal Samuel MD at [facility] OR ??? PRO REPR, DURAL/CSF LEAK, NOT REQ LAMINECTOMY N/A 05/20/2014 @REPAIR DURAL\CSF LEAK,NOT REQUIRING LAMINECTOMY performed by Freddy Isbell MD at [facility] OR Prior To Admission Medications: (Not in a hospital admission) Allergies: Allergies Allergen Reactions ??? Fluoxetine Other (See Comments) HIVES, HEART RACES ??? Tegaderm [Transparent Dressings] Itching and Dermatitis Please use [id number] ??? Penicillins Family History: Family History Problem [...] Administered Date(s) Administered ??? Influenza Vaccine (Novel) [id number], Injectable 02/25/2009 ??? Influenza Vaccine w/Preservative, Split [...] external catheter placed. Will continue to monitor. Embroidery Specialist at bedside. * Samuel Comer MD - [...] Rate: 88 [07/22/22 1438] Resp: 16 [07/22/22 1438] Temp: 35.6 ??C (96 ??F) [07/22/22 1438] [...] who have questions please contact the health occasional caregiver that requested your imaging first. Electronically signed by: Jamaal Villafuerte [facility] ([phone]), at 07/22/2022 8:03 PM Recent Results (from [...] MD 07/22/22 Samuel Comer MD Resident 07/22/22 [id number] Associated attestation - Alek Tavares MD - [...] separate note. 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 female with history of traumatic [...] with plan. Yas John RN, BSN, [employer] Winders Assembler Pager [phone] * Plan of Care - Jimbo Willams [...] Name: Anderson Thorpe Decision Maker Contact Information: [phone] (M) Proxy Activated: Yes Functional status prior [...] Discharge: 08/01/2022 Yas John RN, BSN, [employer] Winders Assembler Pager [phone] * Plan of Care - Guerita Quinonez [...] CARE PLAN GOAL OUTCOME EVALUATION: Guerita Quinonez, RN * Plan of Care - Helena Serrano [...] for sensory deficits provided, if applicable: yes. mailing section clerk present * Plan of Care - Tasha [...] Masimo, bed alarm in use, purposeful rounding, senior resident care director at bed side. * Care Management - [...] Name: Anderson Thorpe Decision Maker Contact Information: [phone] (M) Proxy Activated: Yes Functional status prior [...] Discharge: 07/29/2022 Yas John RN, BSN, [employer] Motor Winders Assembler Pager [phone] * Plan of Care - Maren Barnard RN - 07/28/2022 3:17 AM EDT OUTCOME EVALUATION NOTE: OUTCOME SUMMARY: Pt non-verbal. Pleasant and caregiver helps facilitate communication. On . Pt. Running tachy 130's-140's. MD notified. 1LR slow bolus given. HR improving overnight. UOP monitored via external cath.Meds given per JUN. Assessment as charted. CARMELLA drains flushed w/ 5cc per order.Will contact MD if anything changes. Pt. With <150cc UOP all night. Bladder scan showed <50cc in bladder. notified. No orders at this time. PLAN [...] for sensory deficits provided, if applicable: yes. mailing section clerk present * Plan of Care - Osman [...] Anderson [address] Appointed Guardian(s) Contact Information: [phone] (H) [phone] (M) Proxy Activated: Yes Guardianship paperwork on [...] device, hospital bed Home Address listed as: [address] [place] [id number] Social & Family Supports: All names listed below confirmed with patient as current and correct Extended Emergency Contact Information [facility]: [facility] Relation: Mother Secondary Emergency Contact: Curt [facility] Mobile Relation: Step parent Current Care [...] N/A ; Prescription Coverage: Yes Preferred Pharmacy: [facility] [address] [facility] [address] [place] [address] [facility] [place] [facility] [address] [facility] [address] [facility] [address] [address] - [facility], [place] - [address] [facility] [address] [place] [address] [place] Status: Patient is a : No Primary Care Provider listed: Lorna Bal APRN [phone] Patient/Caregiver Goals of Treatment: return home with [...] care planning. Yas John RN, BSN, [employer] Electric Motor Winders Assembler Pager [phone] * Plan of Care - Osman Bowen RN - 07/24/2022 6:26 PM EDT OUTCOME EVALUATION NOTE: OUTCOME SUMMARY: Patient brightens with approach, on room air, senior resident care director at bedside, IR placed 2 carmella drains [...] Bps soft overnight, 87/57 up to 90s/50s, aware, continuous LR fluids increased from 50mL/hr [...] INFECTIOUS DISEASE & [facility] INFECTIOUS DISEASE CONSULT NOTE Patient Name: Tana Cavazos PCP: Lorna Bal APRN PCP phone #: [phone] Reason for Admission: Lumbar subcutaneous abscesses with [...] to the ED today. Upon arrival to [facility] she was found afebrile, hemodynamically stable. Normal [...] the same area she presented returned to [facility] on 07/22, a repeated CT of the [...] following additions/modifications: Patient was recently admitted to [facility] in early June 2022, at which point [...] of purulent material. She was re-admitted to [facility] on 07/22 for ongoing management, at which [...] on the date of service on the [id number] encounter, chart review, clinical decision making, documentation, [...] Discuss with Dr. Christy Menchaca MD Pager: #[phone] 07/23/22 12:31 PM Future Appointments Date Time Provider Department Center 07/31/2022 1:00 PM Lilli Joy APRN [facility] ID 5C [facility] 08/13/2022 11:30 AM Sergey Keane MD [facility] ID 5C [facility] Associated attestation - Joe Harrison MD - 07/25/2022 12:47 PM EDT Recommend IR drainage. Try to avoid surgery. However, may need debridement and VAC placement. Joe Harrison MD [facility] - Department of Orthopaedic Surgery Front End Developer Designer - Department of Orthopedic Surgery / Academics [employer] Hollow Handle Knife Assembler Professor - [facility] 07/25/2022 * Consult Note - Oriana Rondon RP - 07/23/2022 1:09 AM EDT TelePharmacy Home Medication List Update for Medication Reconciliation 07/23/22 1:09 AM Tana Cavazos 1995 Allergies Allergen Reactions ??? Fluoxetine Other (See Comments) HIVES, HEART RACES ??? Tegaderm [Transparent Dressings] Itching and Dermatitis Please use [id number] ??? Penicillins ??? 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 Quality of Interview/accuracy of medication list: [...] list with information provided by patients adult brand executive, Fannie Villarreal. Fannie reports also using Interdry [...] Visit (TeleHealth) Infectious Disease at [place] [id number] Lilli Joy APRN [facility] INFECTIOUS [place] [address] 12/03/2023 12:30 PM EDT Office [place] [address] Hollie Ambriz MD [facility] INFECTIOUS DISEASE [place] [id number] 12/03/2023 2:30 PM EDT Hospital Encounter Radiology at [place] [phone] Andrade Melvin MD [facility] DR INTERVENTIONAL [place] [address] documented as of this encounter Procedures Procedure [...] 8:1 1 PM EDT RAPID COVID-19 PCR ([facility]) Routine 07/28/2022 8:01 PM EDT RESPIRATORY [...] 5:47 AM EDT) Neutrophils % 48.3 % [facility] Neutr Abs (ANC) 2.57 1.70 - 6.10 x10(3)/[facility] Lymphocytes % 42.1 % [facility] Lymphocytes Abs 2.2 0.9 - 3.2 x10(3)/[facility] Monocytes % 6.4 % [facility] Monocyte Abs 0.3 0.3 - 0.9 x10(3)/[facility] Eosinophils % 2.6 % [facility] Eosinophils Abs 0.1 0.0 - 0.4 x10(3)/[facility] Basophils % 0.4 % [facility] Basophils Abs 0.0 0.0 - 0.1 x10(3)/[facility] Immature Gran % 0.20 % [facility] Comment: Immature granulocytes(IG's)percentage and absolute count will include metamyelocytes, myelocytes, and promyelocytes. Blood smears from CBCs yielding IG's will be scanned manually for concordance. If this scan disagrees with the automated IG or if promyelocytes are noted, a manual differential will be performed. Debora Gran Abs 0.01 0.00 - 0.04 x10(3)/[facility] Blood 08/01/2022 5:47 AM EDT 08/01/2022 6:03 AM EDT Narrative Resulting Agency Comment Spec In Lab Jody Collins MD HEMATOLOGY ORDERABLE S Performing Organization Address City/State/[facility] Co de Phone Number [facility] [place] [address] * (ABNORMAL) Hemogram (08/01/2022 5:47 AM EDT) WBC 5.3 4.0 - 9.5 x10(3)/[facility] RBC 3.99(L) 4.00 - 5.21 x10(6)/[facility] Hemoglobin 9.9(L) 11.7 - 15.5 g/dL [facility] Hematocrit 32.2(L) 35.7 - 45.8 % [facility] MCV 80.7(L) 82.6 - 94.4 fL [facility] MCH 24.8(L) 27.1 - 32.0 pg [facility] MCHC 30.7(L) 31.7 - 35.0 g/dL [facility] Platelets 329 145 - 357 x10(3)/[facility] RDWSD 53.1(H) 37.0 - 46.0 fL [facility] RDWCV 18.1(H) 11.5 - 14.1 % [facility] MPV 9.3 7.6 - 12.9 fL [facility] nRBC % Auto 0.0 % [facility] nRBC Abs Auto 0.000 0.000 - 0.000 x10(3)/mcL [facility] Blood 08/01/2022 5:47 AM EDT 08/01/2022 6:03 AM EDT Narrative Resulting Agency Comment Spec In Lab Jody Collins MD HEMATOLOGY ORDERABLE S Performing Organization Address [facility]/ZIP Co de Phone Number [facility] [place] [address] * Blood culture (07/31/2022 1:09 PM EDT) Blood Culture No growth at 5 days. [facility] Blood STRUCTURE OF LEFT HAND / Unknown 07/31/2022 1:09 PM EDT 07/31/2022 2:09 PM EDT Comment:#2 Narrative Resulting Agency Comment Spec In Lab Jody Collins MD MICROBIOLOGY - BLOOD ORDERABLES Performing Organization Address City/[facility]/ZIP Co de Phone Number [facility] [place] [address] * Blood culture (07/31/2022 1:04 PM EDT) Blood Culture No growth at 5 days. [facility] Blood STRUCTURE OF RIGHT HAND / Unknown 07/31/2022 1:04 PM EDT 07/31/2022 2:09 PM EDT Comment:#1 Narrative Resulting Agency Comment Spec In Lab Jody Collins MD MICROBIOLOGY - BLOOD ORDERABLES Performing Organization Address City/[facility]/ZIP Co [place] [address] * Differential, Automated (07/31/2022 4:53 AM EDT) Neutrophils % 42.0 % [facility] Neutr Abs (ANC) 2.02 1.70 - 6.10 x10(3)/[facility] Lymphocytes % 47.6 % [facility] Lymphocytes Abs 2.3 0.9 - 3.2 x10(3)/[facility] Monocytes % 7.3 % [facility] Monocyte Abs 0.4 0.3 - 0.9 x10(3)/[facility] Eosinophils % 2.5 % [facility] Eosinophils Abs 0.1 0.0 - 0.4 x10(3)/[facility] Basophils % 0.4 % [facility] Basophils Abs 0.0 0.0 - 0.1 x10(3)/[facility] Immature Gran % 0.20 % [facility] Comment: Immature granulocytes(IG's)percentage and absolute count will include metamyelocytes, myelocytes, and promyelocytes. Blood smears from CBCs yielding IG's will be scanned manually for concordance. If this scan disagrees with the automated IG or if promyelocytes are noted, a manual differential will be performed. Debora Gran Abs 0.01 0.00 - 0.04 x10(3)/[facility] Blood 07/31/2022 4:53 AM EDT 07/31/2022 5:07 AM EDT Narrative Resulting Agency Comment Spec In Lab Jody Collins MD [place] [address] * (ABNORMAL) Hemogram (07/31/2022 4:53 AM EDT) Pathologist [facility] WBC 4.8 4.0 - 9.5 x10(3)/[facility] RBC 4.16 4.00 - 5.21 x10(6)/[facility] Hemoglobin 10.3(L) 11.7 - 15.5 g/dL [facility] Hematocrit 33.3(L) 35.7 - 45.8 % [facility] MCV 80.0(L) 82.6 - 94.4 [facility] MCH 24.8(L) 27.1 - 32.0 pg [facility] MCHC 30.9(L) 31.7 - 35.0 g/dL [facility] Platelets 302 145 - 357 x10(3)/[facility] RDWSD 53.7(H) 37.0 - 46.0 [facility] RDWCV 18.5(H) 11.5 - 14.1 % [facility] MPV 9.2 7.6 - 12.9 [facility] nRBC % Auto 0.0 % [facility] nRBC Abs Auto 0.000 0.000 - 0.000 x10(3)/[facility] Blood 07/31/2022 4:53 AM EDT 07/31/2022 5:07 AM EDT Narrative Resulting Agency Comment Spec In Lab Jody Collins MD HEMATOLOGY ORDERABLE S [facility] [place] [address] * (ABNORMAL) CRP, acute inflammation (07/31/2022 4:53 AM EDT) CRP 28.8(H) <=4.9 mg/L [facility] Comment:result rechecked-KS Blood 07/31/2022 4:53 AM EDT 07/31/2022 5:07 AM EDT Narrative Resulting Agency Comment Spec In Lab Jody Collins MD CHEMISTRY ORDERABLES [facility] [place] [address] * (ABNORMAL) Basic Metabolic Panel (non-fasting) (07/31/2022 4:53 AM EDT) Glucose Lvl 88 65 - 199 mg/dL [facility] Comment:Diabetes: >=200 mg/d L plus symptoms BUN 11 8 - 18 mg/dL [facility] Comment:result rechecked-KS Creatinine 0.29(L) 0.70 - 1.20 mg/dL [facility] [...] questions. Chloride 103 98 - 107 mmol/L [facility] CO2 24 22 - 31 mmol/L [facility] Anion Gap 11 5 - 15 mmol/L [facility] Calcium 9.3 8.5 - 10.5 mg/dL [facility] Estimated GFR 148 >=60 mL/min/1. 73 m?? [facility] [...] Narrative Resulting Agency Comment Spec In Lab Jody Collins MD CHEMISTRY ORDERABLES Performing Organization Address City/[facility]/ZIP Co de Phone Number [facility] [place] [address] * Differential, Automated (07/30/2022 5:14 AM EDT) Neutrophils % 44.1 % [facility] Neutr Abs (ANC) 1.79 1.70 - 6.10 x10(3)/[facility] Lymphocytes % 42.9 % [facility] Lymphocytes Abs 1.7 0.9 - 3.2 x10(3)/[facility] Monocytes % 9.1 % [facility] Monocyte Abs 0.4 0.3 - 0.9 x10(3)/[facility] Eosinophils % 3.2 % [facility] Eosinophils Abs 0.1 0.0 - 0.4 x10(3)/[facility] Basophils % 0.5 % [facility] Basophils Abs 0.0 0.0 - 0.1 x10(3)/[facility] Immature Gran % 0.20 % [facility] Comment: Immature granulocytes(IG's)percentage and absolute count will include metamyelocytes, myelocytes, and promyelocytes. Blood smears from CBCs yielding IG's will be scanned manually for concordance. If this scan disagrees with the automated IG or if promyelocytes are noted, a manual differential will be performed. Debora Gran Abs 0.01 0.00 - 0.04 x10(3)/[facility] Blood 07/30/2022 5:14 AM EDT 07/30/2022 5:38 AM EDT Narrative Resulting Agency Comment Spec In Lab Jody Collins MD HEMATOLOGY ORDERABLE S [facility] [place] [address] * (ABNORMAL) Hemogram (07/30/2022 5:14 AM EDT) Pathologist [facility] WBC 4.1 4.0 - 9.5 x10(3)/[facility] RBC 4.02 4.00 - 5.21 x10(6)/[facility] Hemoglobin 9.9(L) 11.7 - 15.5 g/dL [facility] Hematocrit 31.7(L) 35.7 - 45.8 % [facility] MCV 78.9(L) 82.6 - 94.4 fL [facility] MCH 24.6(L) 27.1 - 32.0 pg [facility] MCHC 31.2(L) 31.7 - 35.0 g/dL [facility] Platelets 305 145 - 357 x10(3)/[facility] RDWSD 53.1(H) 37.0 - 46.0 [facility] RDWCV 18.5(H) 11.5 - 14.1 % [facility] MPV 9.6 7.6 - 12.9 [facility] nRBC % Auto 0.0 % [facility] nRBC Abs Auto 0.000 0.000 - 0.000 x10(3)/[facility] Blood 07/30/2022 5:14 AM EDT 07/30/2022 5:38 AM EDT Narrative Resulting Agency Comment Spec In Lab Jody Collins MD [place] [address] * Blood culture (07/30/2022 5:14 AM EDT) Blood Culture No growth at 5 days. [facility] Blood STRUCTURE OF LEFT HAND / Unknown 07/30/2022 5:14 AM EDT 07/30/2022 6:38 AM EDT Narrative Resulting Agency Comment Spec In Lab Yury Saavedra MD MICROBIOLOGY - BLOO D ORDERABLES Performing Organization Address [facility]/ZIP Co de Phone Number [facility] [place] [address] * Phosphorus (07/28/2022 11:27 PM EDT) Phosphorus 4.2 2.5 - 4.5 mg/dL [facility] Blood Venous Draw / Unknown 07/28/2022 11:27 PM EDT 07/28/2022 11:44 PM EDT Narrative Resulting Agency Comment Spec In Lab Shea Fox MD CHEMISTRY ORDERABLES Performing Organization Address [facility]/ZIP Co de Phone Number [facility] [place] [address] * Magnesium (07/28/2022 11:27 PM EDT) Pathologist [facility] Magnesium 0.73 0.69 - 1.07 mmol/L [facility] Blood Venous Draw / Unknown 07/28/2022 11:27 PM EDT 07/28/2022 11:44 PM EDT Narrative Resulting Agency Comment Spec In Lab Shea Fox MD CHEMISTRY ORDERABLES Performing Organization Address City/[facility]/ZIP Co de Phone Number [facility] [place] [address] * Differential, Automated (07/28/2022 11:27 PM EDT) Neutrophils % 51.2 % [facility] Neutr Abs (ANC) 2.52 1.70 - 6.10 x10(3)/[facility] Lymphocytes % 37.3 % [facility] Lymphocytes Abs 1.8 0.9 - 3.2 x10(3)/[facility] Monocytes % 9.1 % [facility] Monocyte Abs 0.4 0.3 - 0.9 x10(3)/[facility] Eosinophils % 1.4 % [facility] Eosinophils Abs 0.1 0.0 - 0.4 x10(3)/[facility] Basophils % 0.6 % [facility] Basophils Abs 0.0 0.0 - 0.1 x10(3)/[facility] Immature Gran % 0.40 % [facility] Comment: Immature granulocytes(IG's)percentage and absolute count will include metamyelocytes, myelocytes, and promyelocytes. Blood smears from CBCs yielding IG's will be scanned manually for concordance. If this scan disagrees with the automated IG or if promyelocytes are noted, a manual differential will be performed. Debora Gran Abs 0.02 0.00 - 0.04 x10(3)/[facility] Blood 07/28/2022 11:2 7 PM EDT 07/28/2022 11:34 PM EDT Narrative Resulting Agency Comment Spec In Lab Shea Fox MD HEMATOLOGY ORDERABLE S [facility] [place] [address] * (ABNORMAL) Hemogram (07/28/2022 11:27 PM EDT) WBC 4.9 4.0 - 9.5 x10(3)/[facility] RBC 4.06 4.00 - 5.21 x10(6)/[facility] Hemoglobin 10.0(L) 11.7 - 15.5 g/dL [facility] Hematocrit 32.3(L) 35.7 - 45.8 % [facility] MCV 79.6(L) 82.6 - 94.4 fL [facility] MCH 24.6(L) 27.1 - 32.0 pg [facility] MCHC 31.0(L) 31.7 - 35.0 g/dL [facility] Platelets 303 145 - 357 x10(3)/[facility] RDWSD 53.3(H) 37.0 - 46.0 fL [facility] RDWCV 18.5(H) 11.5 - 14.1 % [facility] MPV 9.2 7.6 - 12.9 [facility] nRBC % Auto 0.0 % [facility] nRBC Abs Auto 0.000 0.000 - 0.000 x10(3)/[facility] Blood 07/28/2022 11:2 7 PM EDT 07/28/2022 11:34 PM EDT Narrative Resulting Agency Comment Spec In Lab Shea Fox MD HEMATOLOGY ORDERABLE S [facility] [place] [address] * (ABNORMAL) Blood culture (07/28/2022 11:27 PM EDT) Blood Culture Pseudomonas oryzihabitans isolated Isolate saved. If future testing is required, contact the Microbiology Bridge Ironworker. (A) [facility] Gram Stain Aerobic Growth detected in aerobic bottle. Gram Negative Rods seen Results called to and read back by Guerita Quinonez RN ??07/30/22 02:02:27 (A) [facility] Organism Pseudomonas oryzihabitans(A) [facility] Organism Gram Negative Rods(A) [facility] Blood 07/28/2022 11:2 [...] MICROBIOLOGY - BLOOD ORDERABLES Performing Organization Address City/[facility]/ZIP Co de Phone Number [facility] [place] [address] * Lactate, whole blood, send to lab ([facility]) (07/28/2022 11:27 PM EDT) Lactate WB 1.7 0.5 - 2.2 mmol/L [facility] Blood 07/28/2022 11:2 7 PM EDT 07/28/2022 11:33 PM EDT Narrative Resulting Agency Comment Spec In Lab Shea Fox MD CHEMISTRY ORDERABLES Performing Organization Address City/[facility]/ZIP Co de Phone Number [facility] [place] [address] * Lipase (07/28/2022 11:27 PM EDT) Lipase 29 0 - 60 unit/L [facility] Blood 07/28/2022 11:2 7 PM EDT 07/28/2022 11:34 PM EDT Narrative Resulting Agency Comment Spec In Lab Shea Fox MD CHEMISTRY ORDERABLES [facility] [place] [address] * (ABNORMAL) Comprehensive metabolic panel (non-fasting) (07/28/2022 11:27 PM EDT) Glucose Lvl 98 65 - 199 mg/dL [facility] Comment:Diabetes: >=200 mg/d L plus symptoms BUN 7(L) 8 - 18 mg/dL [facility] Creatinine 0.30(L) 0.70 - 1.20 mg/dL [facility] [...] questions. Chloride 102 98 - 107 mmol/L [facility] CO2 25 22 - 31 mmol/L [facility] Anion Gap 11 5 - 15 mmol/L [facility] [facility] Calcium 9.2 8.5 - 10.5 mg/dL [facility] Total Protein 7.3 6.1 - 8.0 g/dL [facility] Albumin 3.6 3.2 - 5.2 g/dL [facility] AST 35(H) 0 - 30 unit/L [facility] ALT 42(H) 0 - 30 unit/L [facility] Alk Phos 182(H) 35 - 105 unit/L [facility] Total Bilirubin 0.2 0.2 - 1.3 mg/dL [facility] Estimated GFR 147 >=60 mL/min/1. 73 m?? [facility] Fox MD CHEMISTRY ORDERABLES Performing Organization Address City/[facility]/ZIP Co de Phone Number [facility] [place] [address] * (ABNORMAL) CRP, acute inflammation (07/28/2022 11:27 PM EDT) CRP 51.5(H) <=4.9 mg/L [facility] Blood 07/28/2022 11:2 7 PM EDT 07/28/2022 11:44 PM EDT Narrative Resulting Agency Comment Spec In Lab Jody Collins MD CHEMISTRY ORDERABLES Performing Organization Address City/[facility]/ZIP Co de Phone Number [facility] [place] [address] * Urinalysis with reflex Culture (07/28/2022 11:20 PM EDT) Glucose UA Negative Negative mg/dL [facility] Protein UA Negative Negative mg/dL [facility] Bilirubin UA Negative Negative mg/dL [facility] Comment: Clinical correlation required for positive Urine Bilirubin results as false positive may occur with some drugs and drug related products. If a false positive is suspected a serum total bilirubin should be considered if clinically indicated. Urobilinogen UA Normal Normal mg/dL [facility] pH UA 7.5 5.0 - 8.0 [facility] Blood UA Negative Negative mg/dL [facility] Ketones UA Negative Negative mg/dL [facility] Nitrite UA Negative Negative [facility] Leukocytes UA Negative Negative mcL MAR Y [facility] Appearance UA Clear Clear [facility] Spec [place] UA 1.013 1.005 - 1.030 [facility] Color UA Yellow Yellow [facility] Culture Reflexed No JEANNA Y [facility] Straight Catheter Urine 07/28/2022 11:20 PM EDT 07/29/2022 12:04 AM EDT Narrative Resulting Agency Comment Spec In Lab Shea Fox MD URINE ORDERABLES Performing Organization Address [facility] de Phone Number [facility] [place] [address] * Blood culture (07/28/2022 11:11 PM EDT) Blood Culture No growth at 5 days. [facility] Blood 07/28/2022 11:1 1 PM EDT 07/29/2022 12:17 AM EDT Comment:R hand Narrative Resulting Agency Comment Spec In Lab Shea Fox MD MICROBIOLOGY - BLOOD ORDERABLES Performing Organization Address [facility] de Phone Number [facility] [place] [address] * XR Chest One View (07/28/2022 8:11 [...] who have questions please contact the health occasional caregiver that requested your imaging first. ? Electronically signed by: FAINA GALLEGO MD, [facility] ??([phone]), at 07/28/2022 8:32 PM Narrative 07/28/2022 8:32 [...] patients who have questions please contactthe health occasional caregiver that requested your imaging first. Jody Collins MD IMG DX ORDERABLES * (ABNORMAL) Respiratory Panel PCR (07/28/2022 8:01 PM EDT) Resp Panel Source [employer] Swab MA RY [facility] Resp Panel PCR Positive(A) Negative MAR Y [facility] Comment: Respiratory Panels are performed on the [employer] using multiplexed PCR nucleic acid detection. ??Negative results do not preclude respiratory infection and should not be used as the sole basis for diagnosis, treatment or other management decisions. Adenovirus Not Detected Not Detected [facility] Coronavirus HKU1 Not Detected Not Detected [facility] Coronavirus NL63 Not Detected Not Detected [facility] Coronavirus 229E Not Detected Not Detected [facility] Coronavirus OC43 Not Detected Not Detected [facility] SARS-CoV-2 Not Detected Not Detected [facility] Comment: Testing for SARS-CoV-2 (Severe acute respiratory syndrome coronavirus 2) to aid in the diagnosis of COVID-19 is performed using the BioFire Respiratory Panel 2.1 ([employer]) as authorized by the FDA issued Emergency Use Authorization (EUA). This panel also tests for multiple other viral and bacterial pathogens. This assay is intended for In-vitro Diagnostic (IVD) use with nasopharyngeal swabs in viral transport media. The assay is performed based on the instructions for use and additional guidance provided by the FDA. Testing is performed in laboratories within the [facility], each of which is certified under [...] fact sheets at the following FDA website: https://www.fda.gov/medical-devices/ladvqsmoaxu-jvwuqqp-0200-vjhnx-85-exjdpopmq- use-a vvqleywzyllyd-jxonudg-tglolyh/erwuf-ywqfzispjyx-nkyu Human Metapneumovirus Not Detected Not Detected [facility] Human Rhino/Enterovirus Detected(A) Not Detected [facility] Influenza A Not Detected Not Detected [facility] Influenza B Not Detected Not Detected [facility] Parainfluenza 1 Not Detected Not Detected [facility] Parainfluenza 2 Not Detected Not Detected [facility] Parainfluenza 3 Not Detected Not Detected [facility] Parainfluenza 4 Not Detected Not Detected [facility] Respiratory Syncytial Virus Not Detected Not Detected [facility] Chlamydophila pneumoniae Not Detected Not Detected [facility] Mycoplasma pneumoniae Not Detected Not Detected [facility] Nasopharyngeal Swab Other / Unknown 07/28 8:01 PM EDT 07/28/2022 8:29 PM EDT Comment:Symptoms->Fever / Re spiratory Symptoms Narrative Resulting Agency Comment Spec In Lab Shea Fox MD MICROBIOLOGY - GENER AL ORDERABLES Performing Organization Address City/State/[facility] Co de Phone Number [facility] [place] [address] * COVID-19 PCR (07/28/2022 8:01 PM EDT) SARS-CoV-2 RNA PCR Not Detected Not Detected [facility] Comment: This result should be [...] using the Simplexa COVID-19 Direct Assay by [employer] as authorized by the FDA issued Emergency [...] Department of Pathology and Laboratory Medicine at [facility], certified under the Clinical Laboratory Improvement [...] fact sheets at the following FDA website: https://www.fda.gov/medical-devices/nwpdxhgtiwj-gekmwwk-2780-tdejf-69-wdcwaoqkp- use-a qfhyhwwjxmnuc-eficpom-fmjcghu/qbczl-nwzjfaehxjw-huel SARS-CoV-2 Source [employer] Swab MAKENZIE MUNSON [facility] Nasopharyngeal Swab 07/29/19 8:01 PM EDT 07/28/2022 8:29 PM EDT Comment:Symptoms->Fever / Re spiratory Symptoms Narrative Resulting Agency Comment Spec In Lab Jody Collins MD MICROBIOLOGY - GENER AL ORDERABLES [facility] [place] [address] * CT Lumbar Spine w Contrast (07/28/2022 [...] who have questions please contact the health occasional caregiver that requested your imaging first. ? Narrative [...] patients who have questions please contactthe health occasional caregiver that requested your imaging first. Jody Collins MD IMG CT ORDERABLES * Differential, Automated (07/28/2022 5:02 AM EDT) Neutrophils % 52.9 % [facility] Neutr Abs (ANC) 2.31 1.70 - 6.10 x10(3)/[facility] Lymphocytes % 34.3 % [facility] Lymphocytes Abs 1.5 0.9 - 3.2 x10(3)/[facility] Monocytes % 11.2 % [facility] Monocyte Abs 0.5 0.3 - 0.9 x10(3)/[facility] Eosinophils % 1.1 % [facility] Eosinophils Abs 0.0 0.0 - 0.4 x10(3)/[facility] Basophils % 0.5 % [facility] Basophils Abs 0.0 0.0 - 0.1 x10(3)/[facility] Immature Gran % 0.00 % [facility] Comment: Immature granulocytes(IG's)percentage and absolute count will include metamyelocytes, myelocytes, and promyelocytes. Blood smears from CBCs yielding IG's will be scanned manually for concordance. If this scan disagrees with the automated IG or if promyelocytes are noted, a manual differential will be performed. Debora Gran Abs 0.00 0.00 - 0.04 x10(3)/[facility] Blood 07/28/2022 5:02 AM EDT 07/28/2022 5:24 AM EDT Narrative Resulting Agency Comment Spec In Lab Jody Collins MD HEMATOLOGY ORDERABLE S [facility] [place] [address] * (ABNORMAL) Hemogram (07/28/2022 5:02 AM EDT) WBC 4.4 4.0 - 9.5 x10(3)/[facility] RBC 3.83(L) 4.00 - 5.21 x10(6)/[facility] Hemoglobin 9.5(L) 11.7 - 15.5 g/dL [facility] Hematocrit 30.3(L) 35.7 - 45.8 % [facility] MCV 79.1(L) 82.6 - 94.4 fL [facility] MCH 24.8(L) 27.1 - 32.0 pg [facility] MCHC 31.4(L) 31.7 - 35.0 g/dL [facility] Platelets 295 145 - 357 x10(3)/[facility] RDWSD 53.1(H) 37.0 - 46.0 fL [facility] RDWCV 18.3(H) 11.5 - 14.1 % [facility] MPV 9.5 7.6 - 12.9 [facility] nRBC % Auto 0.0 % [facility] nRBC Abs Auto 0.000 0.000 - 0.000 x10(3)/[facility] Blood 07/28/2022 5:02 AM EDT 07/28/2022 5:24 AM EDT Narrative Resulting Agency Comment Spec In Lab Jody Collins MD HEMATOLOGY ORDERABLE S [facility] [place] [address] * (ABNORMAL) CRP, acute inflammation (07/28/2022 5:02 AM EDT) Pathologist [facility] CRP 33.1(H) <=4.9 mg/L [facility] Blood 07/28/2022 5:02 AM EDT 07/28/2022 5:24 AM EDT Narrative Resulting Agency Comment Spec In Lab Jody Collins MD CHEMISTRY ORDERABLES [facility] [place] [address] * (ABNORMAL) Basic Metabolic Panel (non-fasting) (07/28/2022 5:02 AM EDT) Glucose Lvl 91 65 - 199 mg/dL [facility] Comment:Diabetes: >=200 mg/d L plus symptoms BUN 10 8 - 18 mg/dL [facility] Creatinine 0.28(L) 0.70 - 1.20 mg/dL [facility] Sodium 138 135 - 145 mmol/L [facility] Potassium 4.0 3.5 - 5.0 mmol/L [facility] Comment: Please note: ??Patients with WBC >100,000 may have falsely elevated Potassium levels. ??For accurate Potassium quantification in these patients send serum separator tube (gold top) for subsequent determinations. ??Contact the Clinical Chemistry Laboratory if there are any questions. Chloride 103 98 - 107 mmol/L [facility] CO2 25 22 - 31 mmol/L [facility] Anion Gap 10 5 - 15 mmol/L [facility] Calcium 8.8 8.5 - 10.5 mg/dL [facility] [...] Narrative Resulting Agency Comment Spec In Lab Jody Collins MD CHEMISTRY ORDERABLES Performing Organization Address City/[facility]/ZIP Co de Phone Number [facility] [place] [address] * Differential, Automated (07/27/2022 2:45 AM EDT) Neutrophils % 48.7 % [facility] Neutr Abs (ANC) 2.57 1.70 - 6.10 x10(3)/[facility] Lymphocytes % 40.6 % [facility] Lymphocytes Abs 2.1 0.9 - 3.2 x10(3)/[facility] Monocytes % 8.2 % [facility] Monocyte Abs 0.4 0.3 - 0.9 x10(3)/[facility] Eosinophils % 1.5 % [facility] Eosinophils Abs 0.1 0.0 - 0.4 x10(3)/[facility] Basophils % 0.8 % [facility] Basophils Abs 0.0 0.0 - 0.1 x10(3)/[facility] Immature Gran % 0.20 % [facility] Comment: Immature granulocytes(IG's)percentage and absolute count will include metamyelocytes, myelocytes, and promyelocytes. Blood smears from CBCs yielding IG's will be scanned manually for concordance. If this scan disagrees with the automated IG or if promyelocytes are noted, a manual differential will be performed. Debora Gran Abs 0.01 0.00 - 0.04 x10(3)/[facility] Blood 07/27/2022 2:45 AM EDT 07/27/2022 2:52 AM EDT Narrative Resulting Agency Comment Spec In Lab Jody Collins MD HEMATOLOGY ORDERABLE S [facility] [place] [address] * (ABNORMAL) Hemogram (07/27/2022 2:45 AM EDT) [facility] WBC 5.3 4.0 - 9.5 x10(3)/[facility] RBC 4.27 4.00 - 5.21 x10(6)/[facility] Hemoglobin 10.4(L) 11.7 - 15.5 g/dL [facility] Hematocrit 33.6(L) 35.7 - 45.8 % [facility] MCV 78.7(L) 82.6 - 94.4 [facility] MCH 24.4(L) 27.1 - 32.0 pg [facility] MCHC 31.0(L) 31.7 - 35.0 g/dL [facility] Platelets 350 145 - 357 x10(3)/[facility] RDWSD 52.4(H) 37.0 - 46.0 [facility] RDWCV 18.3(H) 11.5 - 14.1 % [facility] MPV 9.4 7.6 - 12.9 [facility] nRBC % Auto 0.0 % [facility] nRBC Abs Auto 0.000 0.000 - 0.000 x10(3)/[facility] Blood 07/27/2022 2:45 AM EDT 07/27/2022 2:52 AM EDT Narrative Resulting Agency Comment Spec In Lab Jody Collins MD HEMATOLOGY ORDERABLE S Performing Organization Address City/[facility]/ZIP Co de Phone Number [facility] [place] [address] * Lactate, whole blood, send to lab ([facility]) (07/27/2022 2:45 AM EDT) Lactate WB 1.2 0.5 - 2.2 mmol/L [facility] Blood 07/27/2022 2:45 AM EDT 07/27/2022 2:50 AM EDT Narrative Resulting Agency Comment Spec In Lab Shea Fox MD CHEMISTRY ORDERABLES Performing Organization Address City/[facility]/ZIP Co de Phone Number [facility] [place] [address] * Magnesium (07/27/2022 2:45 AM EDT) Pathologist [facility] Magnesium 0.78 0.69 - 1.07 mmol/L [facility] Blood 07/27/2022 2:45 AM EDT 07/27/2022 2:52 AM EDT Narrative Resulting Agency Comment Spec In Lab Sharron Winters MD CHEMISTRY ORDERABLES Performing Organization Address City/[facility]/ZIP Co de Phone Number [facility] [place] [address] * (ABNORMAL) CRP, acute inflammation (07/27/2022 2:45 AM EDT) Pathologist [facility] CRP 27.0(H) <=4.9 mg/L [facility] Blood 07/27/2022 2:45 AM EDT 07/27/2022 2:52 AM EDT Narrative Resulting Agency Comment Spec In Lab Jody Collins MD CHEMISTRY ORDERABLES Performing Organization Address City/[facility]/ZIP Co de Phone Number [facility] [place] [address] * (ABNORMAL) Sedimentation rate (07/27/2022 2:45 AM EDT) Pathologist [facility] Sed Rate 105(H) 2 - 37 mm/hr [facility] Comment: Effective April 06, 2019 new capillary photometric technology has resulted in a change in reference ranges. It is recommended that each ESR result be reviewed with its own age appropriate reference range. Blood 07/27/2022 2:45 AM EDT 07/27/2022 2:52 AM EDT Narrative Resulting Agency Comment Spec In Lab Jody Collins MD HEMATOLOGY ORDERABLE S [facility] [place] [address] * (ABNORMAL) Basic Metabolic Panel (non-fasting) (07/27/2022 2:45 AM EDT) Glucose Lvl 105 65 - 199 mg/dL [facility] Comment:Diabetes: >=200 mg/d L plus symptoms BUN 12 8 - 18 mg/dL [facility] Creatinine 0.35(L) 0.70 - 1.20 mg/dL [facility] Sodium 139 135 - 145 mmol/L [facility] Potassium 4.1 3.5 - 5.0 mmol/L [facility] Comment: Please note: ??Patients with WBC >100,000 may have falsely elevated Potassium levels. ??For accurate Potassium quantification in these patients send serum separator tube (gold top) for subsequent determinations. ??Contact the Clinical Chemistry Laboratory if there are any questions. Chloride 103 98 - 107 mmol/L [facility] CO2 25 22 - 31 mmol/L [facility] Anion Gap 11 5 - 15 mmol/L [facility] Calcium 9.3 8.5 - 10.5 mg/dL [facility] Estimated GFR 142 >=60 mL/min/1. 73 m?? [facility] [...] Narrative Resulting Agency Comment Spec In Lab Jody Collins MD CHEMISTRY ORDERABLES [facility] [place] [address] * Differential, Automated (07/26/2022 4:46 AM EDT) Neutrophils % 46.4 % [facility] Neutr Abs (ANC) 2.25 1.70 - 6.10 x10(3)/[facility] Lymphocytes % 43.0 % [facility] Lymphocytes Abs 2.1 0.9 - 3.2 x10(3)/[facility] Monocytes % 8.0 % [facility] Monocyte Abs 0.4 0.3 - 0.9 x10(3)/[facility] Eosinophils % 1.6 % [facility] Eosinophils Abs 0.1 0.0 - 0.4 x10(3)/[facility] Basophils % 0.8 % [facility] Basophils Abs 0.0 0.0 - 0.1 x10(3)/[facility] Immature Gran % 0.20 % [facility] Comment: Immature granulocytes(IG's)percentage and absolute count will include metamyelocytes, myelocytes, and promyelocytes. Blood smears from CBCs yielding IG's will be scanned manually for concordance. If this scan disagrees with the automated IG or if promyelocytes are noted, a manual differential will be performed. Debora Gran Abs 0.01 0.00 - 0.04 x10(3)/[facility] Blood 07/26/2022 4:46 AM EDT 07/26/2022 5:23 AM EDT Narrative Resulting Agency Comment Spec In Lab Jody Collins MD HEMATOLOGY ORDERABLE S [facility] [place] [address] * (ABNORMAL) Hemogram (07/26/2022 4:46 AM EDT) WBC 4.9 4.0 - 9.5 x10(3)/[facility] RBC 4.07 4.00 - 5.21 x10(6)/[facility] Hemoglobin 10.1(L) 11.7 - 15.5 g/dL [facility] Hematocrit 31.9(L) 35.7 - 45.8 % [facility] MCV 78.4(L) 82.6 - 94.4 fL [facility] MCH 24.8(L) 27.1 - 32.0 pg [facility] MCHC 31.7 31.7 - 35.0 g/dL [facility] Platelets 348 145 - 357 x10(3)/[facility] RDWSD 52.4(H) 37.0 - 46.0 [facility] RDWCV 18.3(H) 11.5 - 14.1 % [facility] MPV 9.6 7.6 - 12.9 [facility] nRBC % Auto 0.0 % [facility] nRBC Abs Auto 0.000 0.000 - 0.000 x10(3)/[facility] Blood 07/26/2022 4:46 AM EDT 07/26/2022 5:23 AM EDT Narrative Resulting Agency Comment Spec In Lab Jody Collins MD HEMATOLOGY ORDERABLE S [facility] [place] [address] * (ABNORMAL) Sedimentation rate (07/26/2022 4:46 AM EDT) Sed Rate 102(H) 2 - 37 mm/hr [facility] Comment: Effective April 06, 2019 new capillary photometric technology has resulted in a change in reference ranges. It is recommended that each ESR result be reviewed with its own age appropriate reference range. Blood 07/26/2022 4:46 AM EDT 07/26/2022 5:23 AM EDT Narrative Resulting Agency Comment Spec In Lab Jody Collins MD HEMATOLOGY ORDERABLE S Performing Organization Address [facility]/ZIP Co de Phone Number [facility] [place] [address] * (ABNORMAL) CRP, acute inflammation (07/26/2022 4:46 AM EDT) Pathologist [facility] CRP 40.5(H) <=4.9 mg/L [facility] Blood 07/26/2022 4:46 AM EDT 07/26/2022 5:23 AM EDT Narrative Resulting Agency Comment Spec In Lab Jody Collins MD CHEMISTRY ORDERABLES Performing Organization Address [facility] Co de Phone Number [facility] [place] [address] * (ABNORMAL) Basic Metabolic Panel (non-fasting) (07/26/2022 4:46 AM EDT) [facility] Glucose Lvl 100 65 - 199 mg/dL [facility] Comment:Diabetes: >=200 mg/d L plus symptoms BUN 13 8 - 18 mg/dL [facility] Creatinine 0.25(L) 0.70 - 1.20 mg/dL [facility] Sodium 139 135 - 145 mmol/L [facility] Potassium 3.8 3.5 - 5.0 mmol/L [facility] Comment: Please note: ??Patients with WBC >100,000 may have falsely elevated Potassium levels. ??For accurate Potassium quantification in these patients send serum separator tube (gold top) for subsequent determinations. ??Contact the Clinical Chemistry Laboratory if there are any questions. Chloride 103 98 - 107 mmol/L [facility] CO2 23 22 - 31 mmol/L [facility] Anion Gap 13 5 - 15 mmol/L [facility] Calcium 9.4 8.5 - 10.5 mg/dL [facility] Estimated GFR 154 >=60 mL/min/1. 73 m?? [facility] [...] Narrative Resulting Agency Comment Spec In Lab Jody Collins MD CHEMISTRY ORDERABLES [facility] [place] [address] * EKG 12 Lead (07/25/2022 12:42 PM EDT) Ventricular rate 106 BPM MUSE SYSTEM Atrial Rate 106 BPM MUSE SYSTEM P-R Interval 120 ms MUSE SYSTEM QRS Duration 74 ms MUSE SYSTEM Q-T Interval 328 ms MUSE SYSTEM QTC Calculated (Bezet) 435 ms MUSE SYSTEM Calculated P [place] 22 degrees MUSE SYSTEM Calculated R [place] 7 degrees MUSE SYSTEM Calculated T [place] 25 degrees MUSE SYSTEM INTERPRETATION Sinus tachycardia Possible Inferior infarct (cited on or before 07-JUL-2022) Abnormal ECG When compared with ECG of 07-JUL-2022 11:44, Nonspecific T wave abnormality no longer evident in Anterior leads Confirmed by MD Chowdary Daniel ([id number]) on 08/07/2022 5:45:44 PM MUSE SYSTEM 07/25/2022 12:4 2 PM EDT 08/07/2022 5:45 PM EDT Jody Collins MD ECG ORDERABLES MUSE SYSTEM * Differential, Automated (07/25/2022 4:37 AM EDT) Neutrophils % 54.4 % [facility] Neutr Abs (ANC) 2.66 1.70 - 6.10 x10(3)/[facility] Lymphocytes % 35.0 % [facility] Lymphocytes Abs 1.7 0.9 - 3.2 x10(3)/[facility] Monocytes % 8.6 % [facility] Monocyte Abs 0.4 0.3 - 0.9 x10(3)/[facility] Eosinophils % 1.0 % [facility] Eosinophils Abs 0.0 0.0 - 0.4 x10(3)/[facility] Basophils % 0.6 % [facility] Basophils Abs 0.0 0.0 - 0.1 x10(3)/[facility] Immature Gran % 0.40 % [facility] Comment: Immature granulocytes(IG's)percentage and absolute count will include metamyelocytes, myelocytes, and promyelocytes. Blood smears from CBCs yielding IG's will be scanned manually for concordance. If this scan disagrees with the automated IG or if promyelocytes are noted, a manual differential will be performed. Debora Gran Abs 0.02 0.00 - 0.04 x10(3)/[facility] LABORATORY Blood 07/25/2022 4:37 AM EDT 07/25/2022 4:50 AM EDT Narrative Resulting Agency Comment Spec In Lab Eddi Vázquez MD HEMATOLOGY ORDERABLE S [facility] [place] [address] * (ABNORMAL) Hemogram (07/25/2022 4:37 AM EDT) WBC 4.9 4.0 - 9.5 x10(3)/[facility] LABORATORY RBC 4.16 4.00 - 5.21 x10(6)/[facility] LABORATORY Hemoglobin 10.3(L) 11.7 - 15.5 g/dL [facility] Hematocrit 32.6(L) 35.7 - 45.8 % [facility] MCV 78.4(L) 82.6 - 94.4 [facility] LABORATORY MCH 24.8(L) 27.1 - 32.0 pg [facility] MCHC 31.6(L) 31.7 - 35.0 g/dL [facility] Platelets 357 145 - 357 x10(3)/[facility] LABORATORY RDWSD 52.5(H) 37.0 - 46.0 [facility] LABORATORY RDWCV 18.5(H) 11.5 - 14.1 % [facility] MPV 9.6 7.6 - 12.9 [facility] LABORATORY nRBC % Auto 0.0 % [facility] LABORATORY nRBC Abs Auto 0.000 0.000 - 0.000 x10(3)/[facility] LABORATORY Blood 07/25/2022 4:37 AM EDT 07/25/2022 4:50 AM EDT Narrative Resulting Agency Comment Spec In Lab Eddi Vázquez MD HEMATOLOGY ORDERABLE S [facility] [place] [address] * (ABNORMAL) Basic Metabolic Panel (non-fasting) (07/25/2022 4:37 AM EDT) Glucose Lvl 99 65 - 199 mg/dL [facility] Comment:Diabetes: >=200 mg/d L plus symptoms BUN 13 8 - 18 mg/dL [facility] Creatinine 0.49(L) 0.70 - 1.20 mg/dL [facility] [...] questions. Chloride 105 98 - 107 mmol/L [facility] CO2 23 22 - 31 mmol/L [facility] Anion Gap 10 5 - 15 mmol/L [facility] Calcium 8.9 8.5 - 10.5 mg/dL [facility] Estimated GFR 131 >=60 mL/min/1. 73 m?? [facility] [...] In Lab Eddi Vázquez MD CHEMISTRY ORDERABLES [facility] [place] [address] * IR All Drainage Procedures (07/24/2022 4:02 PM EDT) Anatomical Region Laterality Modality X-Ray Angiograph y Impressions 07/25/2022 8:08 AM EDT Percutaneous placement of a 10 Iranian drainage catheter into subcutaneous collection adjacent to RIGHT SI joint screw, yielding 5 mL of bloody fluid. Percutaneous placement of a 8 Iranian drainage catheter into subcutaneous collection adjacent to [...] who have questions please contact the health occasional caregiver that requested your imaging first. ? Narrative [...] complications. IMPRESSION Percutaneous placement of a 10 Iranian drainage catheter intosubcutaneous collection adjacent to RIGHT SI joint screw, yielding 5 mL of bloodyfluid. Percutaneous placement of a 8 Iranian drainage catheter into subcutaneous collection adjacent to [...] patients who have questions please contactthe health occasional caregiver that requested your imaging first. Ernesto Willingham MD IMG IR ORDERABLES * Anaerobic Culture (07/24/2022 3:47 PM EDT) Anaerobic Culture No anaerobic organisms isolated [facility] Fluid 07/24/2022 3:47 PM EDT 07/24/2022 4:43 PM EDT Comment:SI/L5 Narrative Resulting Agency Comment Spec In Lab Anurag Kumar MD MICROBIOLOGY - GEN ERAL ORDERABLES Performing Organization Address City/[facility]/ZIP Co de Phone Number [facility] [place] [address] * Crystal Exam Body Fluid Other (07/24/2022 3:47 PM EDT) Crystal BF Type Other [facility] Comment: Interpret with caution due to questionable sample integrity caused by sample age. Results may be inaccurate due to presence of many degenerated cells. Crystal BF None Seen [facility] Other 07/24/2022 3:47 PM EDT 07/24/2022 4:31 PM EDT Narrative Resulting Agency Comment Spec In Lab Anurag Kumar MD BODY FLUIDS AND ST OOLS ORDERABLES Performing Organization Address City/[facility] Co de Phone Number [facility] [place] [address] * Cell Count Body Fluid Other (07/24/2022 3:47 PM EDT) Spec Type BF Other [facility]ORY Comment: Interpret with caution due to questionable sample integrity caused by sample age. Results may be inaccurate due to presence of many degenerated cells. Called by: millicent, Read back by: carlin alejo, Date/Time:07/24/22 17:51. Color BF Red [facility]ORATORY Comment: Interpret with caution due to questionable sample integrity caused by sample age. Results may be inaccurate due to presence of many degenerated cells. Appearance BF Cloudy [facility]ORY Comment: Interpret with caution due to questionable sample integrity caused by sample age. Results may be inaccurate due to presence of many degenerated cells. WBC BF Ct Not Perf [facility] Comment: Interpret with caution [...] manually for concordance. Mononuc % Not Perf [facility] Comment: Interpret with caution due to questionable sample integrity caused by sample age. Results may be inaccurate due to presence of many degenerated cells. Mononuclear cell percent and absolute values may contain Lymphocytes and Monocytes. Body fluid smear will be scanned manually for concordance. Polymorph BF ABS Not Perf [facility] Comment: Interpret with [...] MD BODY FLUIDS AND ST OOLS ORDERABLES [facility] [place] [address] * Abscess/Wound Aspirate Culture Abscess; Pelvic (07/24/2022 3:47 PM EDT) Abscess/Wound Aspirate Culture No growth [facility] Gram Stain Many Neutrophils seen No microorganisms seen. [facility] Abscess [place] / Unknown 07/24/2022 3:47 PM EDT 07/24/2022 4:43 PM EDT Comment:SI/L5 Narrative Resulting Agency Comment Spec In Lab Anurag Kumar MD MICROBIOLOGY - GEN ERAL ORDERABLES Performing Organization Address [facility]/ZIP Co de Phone Number [facility] [place] [address] * AFB culture (07/24/2022 3:22 PM EDT) Acid Fast Bacilli Culture No Acid Fast Bacilli isolated [facility] Acid Fast Stain No Acid Fast Bacilli seen [facility] Vertebra LUMBAR SPINE STRUCTURE / Unknown 07/24/2022 3:22 PM EDT 07/27/2022 12:32 PM EDT Comment:LUMBAR ABSCESS Narrative Resulting Agency Comment Spec In Lab Jody Collins MD MICROBIOLOGY - GENER AL ORDERABLES Performing Organization Address City/[facility] Co de Phone Number [facility] [place] [address] * Calcofluor White Stain (07/24/2022 3:22 PM EDT) Calcofluor Stain Calcofluor White Preparation: Negative [facility] Abscess LUMBAR SPINE STRUCTURE / Unknown 07/24/2022 3:22 PM EDT 07/27/2022 12:30 PM EDT Comment:Lumbar abscess Narrative Resulting Agency Comment Spec In Lab Jody Collins MD MICROBIOLOGY - GENER AL ORDERABLES Performing Organization Address City/[facility]/ZIP Co de Phone Number [facility] [place] [address] * Fungus culture (07/24/2022 3:22 PM EDT) Fungus Culture No Fungus isolated [facility] Abscess LUMBAR SPINE STRUCTURE / Unknown 07/24/2022 3:22 PM EDT 07/27/2022 12:30 PM EDT Comment:Lumbar abscess Narrative Resulting Agency Comment Spec In Lab Jody Collins MD MICROBIOLOGY - GENER AL ORDERABLES Performing Organization Address City/[facility]/ZIP Co de Phone Number [facility] [place] [address] * Anaerobic Culture (07/24/2022 3:22 PM EDT) Anaerobic Culture No anaerobic organisms isolated [facility] Fluid 07/24/2022 3:22 PM EDT 07/24/2022 4:44 PM EDT Comment:Lumbar abscess Narrative Resulting Agency Comment Spec In Lab Mal Menchaca MD MICROBIOLOGY - GENER AL ORDERABLES Performing Organization Address [facility] Co de Phone Number [facility] [place] [address] * Body Fluid Culture, Aerobic (07/24/2022 3:22 PM EDT) Body Fluid Culture No growth [facility] Gram Stain Few Neutrophils seen No microorganisms seen. [facility] Fluid 07/24/2022 3:22 PM EDT 07/24/2022 4:44 PM EDT Comment:Lumbar abscess Narrative Resulting Agency Comment Spec In Lab Mal Menchaca MD MICROBIOLOGY - GENER AL ORDERABLES Performing Organization Address [facility] Co de Phone Number [facility] [place] [address] * Crystal Exam Body Fluid Other (07/24/2022 3:22 PM EDT) Crystal BF Type Other [facility] Comment: Interpret with caution due to questionable sample integrity caused by sample age. Results may be inaccurate due to presence of many degenerated cells. Crystal BF None Seen [facility] Other 07/24/2022 3:22 PM EDT 07/24/2022 4:34 PM EDT Narrative Resulting Agency Comment Spec In Lab Ernesto Willingham MD BODY FLUIDS AND STOO LS ORDERABLES [facility] [place] [address] * Cell Count Body Fluid Other (07/24/2022 3:22 PM EDT) Spec Type BF Other [facility] Comment: Interpret with caution due to questionable sample integrity caused by sample age. Results may be inaccurate due to presence of many degenerated cells. Called by: millicent, Read back by: carlin alejo, Date/Time:07/24/22 17:51. Color BF Red [facility] Comment: Interpret with caution due to questionable sample integrity caused by sample age. Results may be inaccurate due to presence of many degenerated cells. Appearance BF Cloudy [facility] Comment: Interpret with caution due to questionable sample integrity caused by sample age. Results may be inaccurate due to presence of many degenerated cells. WBC BF Ct Not Perf [facility] Comment: Interpret with caution [...] manually for concordance. Mononuc % Not Perf [facility] Comment: Interpret with caution due to questionable sample integrity caused by sample age. Results may be inaccurate due to presence of many degenerated cells. Mononuclear cell percent and absolute values may contain Lymphocytes and Monocytes. Body fluid smear will be scanned manually for concordance. Polymorph BF ABS Not Perf [facility] Comment: Interpret with caution due [...] Resulting Agency Comment Spec In Lab Ernesto Willnigham MD BODY FLUIDS AND [place]AR[place] ORDERABLES [facility] [place] [address] * Differential, Automated (07/24/2022 5:25 AM EDT) Neutrophils % 46.6 % [facility] Neutr Abs (ANC) 2.04 1.70 - 6.10 x10(3)/[facility] LABORATORY Lymphocytes % 42.9 % [facility] Lymphocytes Abs 1.9 0.9 - 3.2 x10(3)/[facility] LABORATORY Monocytes % 8.0 % [facility]ORATORY Monocyte Abs 0.4 0.3 - 0.9 x10(3)/[facility] LABORATORY Eosinophils % 1.8 % [facility] Eosinophils Abs 0.1 0.0 - 0.4 x10(3)/[facility] LABORATORY Basophils % 0.7 % [facility] Basophils Abs 0.0 0.0 - 0.1 x10(3)/[facility] LABORATORY Immature Gran % 0.00 % [facility] Comment: Immature granulocytes(IG's)percentage and absolute count will include metamyelocytes, myelocytes, and promyelocytes. Blood smears from CBCs yielding IG's will be scanned manually for concordance. If this scan disagrees with the automated IG or if promyelocytes are noted, a manual differential will be performed. Debora Gran Abs 0.00 0.00 - 0.04 x10(3)/[facility] LABORATORY Blood 07/24/2022 5:25 AM EDT 07/24/2022 5:57 AM EDT Narrative Resulting Agency Comment Spec In Lab Eddi Vázquez MD HEMATOLOGY ORDERABLE S Performing Organization Address City/State/[facility] Co de Phone Number [facility] [place] [address] * (ABNORMAL) Hemogram (07/24/2022 5:25 AM EDT) WBC 4.4 4.0 - 9.5 x10(3)/[facility] LABORATORY RBC 3.92(L) 4.00 - 5.21 x10(6)/[facility] LABORATORY Hemoglobin 9.6(L) 11.7 - 15.5 g/dL [facility] Hematocrit 31.4(L) 35.7 - 45.8 % [facility] MCV 80.1(L) 82.6 - 94.4 [facility] LABORATORY MCH 24.5(L) 27.1 - 32.0 pg [facility] MCHC 30.6(L) 31.7 - 35.0 g/dL [facility] Platelets 343 145 - 357 x10(3)/[facility] LABORATORY RDWSD 54.7(H) 37.0 - 46.0 [facility] LABORATORY RDWCV 18.7(H) 11.5 - 14.1 % [facility] MPV 9.5 7.6 - 12.9 [facility] LABORATORY nRBC % Auto 0.0 % [facility]AT[facility] nRBC Abs Auto 0.000 0.000 - 0.000 x10(3)/[facility] LABORATORY Blood 07/24/2022 5:25 AM EDT 07/24/2022 5:57 AM EDT Narrative Resulting Agency Comment Spec In Lab Eddi Vázquez MD HEMATOLOGY ORDERABLE S [facility] [place] [address] * (ABNORMAL) Basic Metabolic Panel (non-fasting) (07/24/2022 5:25 AM EDT) Glucose Lvl 89 65 - 199 mg/dL [facility] Comment:Diabetes: >=200 mg/d L plus symptoms BUN 11 8 - 18 mg/dL [facility] Creatinine 0.34(L) 0.70 - 1.20 mg/dL [facility] [...] 15 mmol/L [facility] Calcium 9.1 8.5 - 10.5 mg/dL [facility] Estimated GFR 143 >=60 mL/min/1. 73 m?? [facility] [...] Resulting Agency Comment Spec In Lab Eddi S Saggu MD CHEMISTRY ORDERABLES Performing Organization Address City/[facility]/ZIP Co de Phone Number [facility] [place] [address] * Differential, Automated (07/23/2022 3:00 AM EDT) Neutrophils % 50.7 % [facility] Neutr Abs (ANC) 3.15 1.70 - 6.10 x10(3)/[facility] LABORATORY Lymphocytes % 40.3 % [facility] Lymphocytes Abs 2.5 0.9 - 3.2 x10(3)/[facility] LABORATORY Monocytes % 7.2 % [facility] Monocyte Abs 0.4 0.3 - 0.9 x10(3)/[facility] LABORATORY Eosinophils % 1.1 % [facility] Eosinophils Abs 0.1 0.0 - 0.4 x10(3)/[facility] LABORATORY Basophils % 0.5 % [facility] Basophils Abs 0.0 0.0 - 0.1 x10(3)/[facility] LABORATORY Immature Gran % 0.20 % [facility] Comment: Immature granulocytes(IG's)percentage and absolute count will include metamyelocytes, myelocytes, and promyelocytes. Blood smears from CBCs yielding IG's will be scanned manually for concordance. If this scan disagrees with the automated IG or if promyelocytes are noted, a manual differential will be performed. Debora Gran Abs 0.01 0.00 - 0.04 x10(3)/[facility] LABORATORY Blood 07/23/2022 3:00 AM EDT 07/23/2022 3:02 AM EDT Narrative Resulting Agency Comment Spec In Lab Eddi Vázquez MD HEMATOLOGY ORDERABLE S Performing Organization Address City/[facility]/ZIP Co de Phone Number [facility] [place] [address] * (ABNORMAL) Hemogram (07/23/2022 3:00 AM EDT) Pathologist [facility] WBC 6.2 4.0 - 9.5 x10(3)/[facility] LABORATORY RBC 4.19 4.00 - 5.21 x10(6)/[facility] LABORATORY Hemoglobin 10.5(L) 11.7 - 15.5 g/dL [facility] Hematocrit 32.7(L) 35.7 - 45.8 % [facility] MCV 78.0(L) 82.6 - 94.4 fL [facility] MCH 25.1(L) 27.1 - 32.0 pg [facility] MCHC 32.1 31.7 - 35.0 g/dL [facility] Platelets 364(H) 145 - 357 x10(3)/[facility] LABORATORY RDWSD 53.3(H) 37.0 - 46.0 fL [facility] RDWCV 18.6(H) 11.5 - 14.1 % [facility] MPV 9.0 7.6 - 12.9 fL [facility] nRBC % Auto 0.0 % [facility] nRBC Abs Auto 0.000 0.000 - 0.000 x10(3)/[facility] LABORATORY Blood 07/23/2022 3:00 AM EDT 07/23/2022 3:02 AM EDT Narrative Resulting Agency Comment Spec In Lab Eddi Vázquez MD HEMATOLOGY ORDERABLE S [facility] [place] [address] * (ABNORMAL) Basic Metabolic Panel (non-fasting) (07/23/2022 3:00 AM EDT) Pathologist [facility] Glucose Lvl 101 65 - 199 mg/dL [facility] Comment:Diabetes: >=200 mg/d L plus symptoms BUN 9 8 - 18 mg/dL [facility] Creatinine 0.31(L) 0.70 - 1.20 mg/dL [facility] Sodium 141 135 - 145 mmol/L [facility] Potassium 3.6 3.5 - 5.0 mmol/L [facility] Comment: Please note: ??Patients with WBC >100,000 may have falsely elevated Potassium levels. ??For accurate Potassium quantification in these patients send serum separator tube (gold top) for subsequent determinations. ??Contact the Clinical Chemistry Laboratory if there are any questions. Chloride 105 98 - 107 mmol/L [facility] CO2 23 22 - 31 mmol/L [facility] Anion Gap 13 5 - 15 mmol/L [facility] Calcium 8.9 8.5 - 10.5 mg/dL [facility] Estimated GFR 146 >=60 mL/min/1. 73 m?? [facility] [...] In Lab Eddi Vázquez MD CHEMISTRY ORDERABLES [facility] [place] [address] * Blood culture (07/22/2022 10:47 PM EDT) Blood Culture No growth at 5 days. [facility] Blood VENOUS CATHETER / Unknown 07/22/2022 10:47 PM EDT 07/22/2022 10:48 PM EDT Comment:add-on Narrative Resulting Agency Comment Spec In Lab Samuel Comer MD MICROBIOLOGY - BLOOD ORDERABLES Performing Organization Address [facility] Co de Phone Number [facility] [place] [address] * Anaerobic Culture (07/22/2022 9:30 PM EDT) Anaerobic Culture No anaerobic organisms isolated [facility] Fluid 07/22/2022 9:30 PM EDT 07/22/2022 9:45 PM EDT Narrative Resulting Agency Comment Spec In Lab Samuel Comer MD MICROBIOLOGY - GENER AL ORDERABLES Performing Organization Address [facility] de Phone Number [facility] [place] [address] * Body Fluid Culture, Aerobic (07/22/2022 9:30 PM EDT) Body Fluid Culture No growth to date. [facility] Gram Stain Many Neutrophils seen No microorganisms seen. [facility] Fluid 07/22/2022 9:30 PM EDT 07/22/2022 9:45 PM EDT Narrative Resulting Agency Comment Spec In Lab Samuel Comer MD MICROBIOLOGY - GENER AL ORDERABLES Performing Organization Address [facility] Co de Phone Number [facility] [place] [address] * Cell Count Body Fluid Other (07/22/2022 9:30 PM EDT) Spec Type BF Other [facility] Color BF Red [facility] Appearance BF Clotted [facility] WBC BF Ct Clotted [facility] Comment: Called by: CHARLEY, [...] manually for concordance. Mononuc % Clotted % [facility] Comment: Mononuclear cell percent and absolute values may contain Lymphocytes and Monocytes. Body fluid smear will be scanned manually for concordance. Polymorph BF ABS Clotted /mcl [facility] Comment: Polymorphonuclear cell percent [...] MD BODY FLUIDS AND STOO LS ORDERABLES [facility] [place] [address] * Blood culture (07/22/2022 9:15 PM EDT) Blood Culture No growth at 5 days. [facility] Blood 07/22/2022 9:15 PM EDT 07/22/2022 9:29 PM EDT Comment:L AC Narrative Resulting Agency Comment Spec In Lab Alek Tavares MD MICROBIOLOGY - BLOOD ORDERABLES [facility] [place] [address] * CT Lumbar Spine w Contrast (07/22/2022 [...] who have questions please contact the health occasional caregiver that requested your imaging first. ? Electronically signed by: Jamaal Villafuerte [facility] ([phone]), at 07/22/2022 8:03 PM Narrative 07/22/2022 8:03 [...] patients who have questions please contactthe health occasional caregiver that requested your imaging first. Marie Telles MD IM CT ORDERABLES * Differential, Automated (07/22/2022 7:12 PM EDT) Neutrophils % 53.7 % [facility] Neutr Abs (ANC) 3.01 1.70 - 6.10 x10(3)/[facility] LABORATORY Lymphocytes % 37.4 % [facility] Lymphocytes Abs 2.1 0.9 - 3.2 x10(3)/[facility] LABORATORY Monocytes % 6.2 % [facility] Monocyte Abs 0.4 0.3 - 0.9 x10(3)/[facility] LABORATORY Eosinophils % 1.4 % [facility] Eosinophils Abs 0.1 0.0 - 0.4 x10(3)/[facility] LABORATORY Basophils % 1.1 % [facility] Basophils Abs 0.1 0.0 - 0.1 x10(3)/[facility] LABORATORY Immature Gran % 0.20 % [facility] Comment: Immature granulocytes(IG's)percentage and absolute count will include metamyelocytes, myelocytes, and promyelocytes. Blood smears from CBCs yielding IG's will be scanned manually for concordance. If this scan disagrees with the automated IG or if promyelocytes are noted, a manual differential will be performed. Debora Gran Abs 0.01 0.00 - 0.04 x10(3)/[facility] LABORATORY Blood 07/22/2022 7:12 PM EDT 07/22/2022 7:21 PM EDT Narrative Resulting Agency Comment Spec In Lab Phyllis SIMMS HEMATOLOGY ORDERABLE S [facility] [place] [address] * (ABNORMAL) Hemogram (07/22/2022 7:12 PM EDT) WBC 5.6 4.0 - 9.5 x10(3)/[facility] LABORATORY RBC 4.58 4.00 - 5.21 x10(6)/[facility] LABOR[facility]ORY Hemoglobin 11.2(L) 11.7 - 15.5 g/dL [facility] Hematocrit 36.2 35.7 - 45.8 % [facility] MCV 79.0(L) 82.6 - 94.4 fL [facility] MCH 24.5(L) 27.1 - 32.0 pg [facility] MCHC 30.9(L) 31.7 - 35.0 g/dL [facility] Platelets 449(H) 145 - 357 x10(3)/[facility] LABORATORY RDWSD 52.9(H) 37.0 - 46.0 [facility] LABORATORY RDWCV 18.3(H) 11.5 - 14.1 % [facility] MPV 9.2 7.6 - 12.9 [facility] LABORATORY nRBC % Auto 0.0 % [facility] nRBC Abs Auto 0.000 0.000 - 0.000 x10(3)/[facility] LABORATORY Blood 07/22/2022 7:12 PM EDT 07/22/2022 7:21 PM EDT Narrative Resulting Agency Comment Spec In Lab Phyllis SIMMS HEMATOLOGY ORDERABLE S [facility] [place] [address] * (ABNORMAL) CRP, acute inflammation (07/22/2022 7:12 PM EDT) CRP 48.9(H) <=4.9 mg/L [facility] Blood 07/22/2022 7:12 PM EDT 07/22/2022 7:21 PM EDT Narrative Resulting Agency Comment Spec In Lab Amarilis Carcamo DO CHEMISTRY O RDERABLES Performing Organization Address [facility] [facility] Co de Phone Number [facility] [place] [address] * (ABNORMAL) Sedimentation rate (07/22/2022 7:12 PM EDT) Sed Rate >119(H) 2 - 37 mm/hr [facility] Carcamo DO HEMATOLOGY ORDERABLES Performing Organization Address [facility] Co de Phone Number [facility] [place] [address] * (ABNORMAL) Basic Metabolic Panel (non-fasting) (07/22/2022 7:12 PM EDT) [facility] Glucose Lvl 99 65 - 199 mg/dL [facility] Comment:Diabetes: >=200 mg/d L plus symptoms BUN 10 8 - 18 mg/dL [facility] Creatinine 0.34(L) 0.70 - 1.20 mg/dL [facility] Sodium 139 135 - 145 mmol/L [facility] Potassium 3.8 3.5 - 5.0 mmol/L [facility] Comment: Please note: ??Patients with WBC >100,000 may have falsely elevated Potassium levels. ??For accurate Potassium quantification in these patients send serum separator tube (gold top) for subsequent determinations. ??Contact the Clinical Chemistry Laboratory if there are any questions. Chloride 103 98 - 107 mmol/L [facility] CO2 26 22 - 31 mmol/L [facility] Anion Gap 10 5 - 15 mmol/L [facility] Calcium 9.4 8.5 - 10.5 mg/dL [facility] Estimated GFR 143 >=60 mL/min/1. 73 m?? [facility] [...] In Lab Marie Telles MD CHEMISTRY ORDERABLES [facility] [place] [address] documented in this encounter Visit Diagnoses Diagnosis [...] 1 dose, On Thu07/27/22 at 2145 New 07/27/2022 9:36 PM EDT 100 mL/hr lactated ringers infusion 100 mL/hr, Intravenous, CONTINUOUS, Starting on Thu07/23/22 at 1110, Until Thu07/24/22 at 1109 New 07/24/2022 5:00 AM EDT 100 mL/hr 100 mL/hr Rate/Dose Change 07/24/2022 12:54 AM EDT 100 mL/hr 100 mL /hr New 07/23/2022 12:44 PM EDT 50 mL/hr 50 mL/hr lactated ringers infusion 100 mL/hr, Intravenous, CONTINUOUS, Starting on Thu07/28/22 at 1245, Until Thu07/29/22 at 0344 New 07/28/2022 10:12 PM EDT 100 mL/hr 100 [...] Routine 0819 (Given - Provider: Frankie Hair RN)2028 (Given - Provider: Paige Gonzalez RN) 0857 (Given - Provider: Jimbo Willams RN)2105 (Given - Provider: Yandy Masters RN) 08 (Given - Provider: Jimbo Willams RN) enoxaparin [...] appropriate choice: ID Approval by Sergey Aguirre 08 (Given - Provider: Frankie Hair RN) 08 (Given - Provider: Jimbo Willams RN) 0818 [...] on Thu07/23/22 at 0900, Until Discontinued, Routine 08 (Given - Provider: Frankie Hair RN) 0859 [...] on Thu07/22/22 at 2204, Until Thu08/01/22 at 1911, flush, Flush pertains to all indwelling lines. [...] documented as of this encounter Care Teams Welding Instructor Relationship Specialty Start Date End Date Lorna Bal APRN [address] [place] [address] PCP - General Family Medicine 05/27/18 documented as of this encounter
--- OUTSIDE RECORDS SUMMARY | 2023-11-23 16:37 | XMS_ITS | Encounter Summary ---
Author Organization [facility] [place] [address] Care Team Providers Care Band Manager Name Role Phone Lorna Bal APRN Primary Care Provider +1 -[phone] Encounter Details Date Type Department Care Team (Late st Contact Info) Description 07/15/2022 Telephone [place] [address] Valentina Stanton Social History Tobacco Use Types Packs/Day Years Used Date Smoking Tobacco: Never Smokeless Tobacco: Never Comments:NO SMOKERS IN THE H OME Alcohol Use Standard Drinks/Week Comments No 0 (1 standard drink = 0.6 oz pur e alcohol) [facility] Inpatient Questions Answer Date Recorded Does [...] alert. She is taking levofloxacin as prescribed. [facility] labs today. We talked about the [...] EDT TH Visit (TeleHealth) [place] [address] Lilli Joy APRN [facility] [place] [address] 12/03/2023 12:30 PM EDT Office Visit [place] [phone] Hollie Ambriz MD [facility] [place] [address] 12/03/2023 2:30 PM EDT Hospital En[place] [address] Andrade Melvin MD [facility] DR INTERVENTIONAL [place] [address] documented as of this encounter Visit Diagnoses Not on filedocumented in this encounter Care Teams Band Manager Relationship Specialty Start Date End Date Lorna Bal APRN [address] [place] [address] PCP - General Family Medicine 05/27/18 documented as of this encounter
--- OUTSIDE RECORDS SUMMARY | 2023-11-23 16:37 | XMS_ITS | Encounter Summary ---
Author Organization [facility] Address [facility] [place] [address] Care Team Providers Care Apprentice Instrument Technician Name Role Phone Lorna Bal APRN Primary Care Provider +1 -[phone] Encounter Details Date Type Department Care Team (Late st Contact Info) Description 07/12/2022 [place] [phone] Ainsley Doyle MD [facility] [place] [address] Social History Tobacco Use Types Packs/Day Years [...] TH Visit (TeleHealth) [place] [address] Lilli Joy APRN [facility] [place] [address] 12/03/2023 12:30 PM EDT Office Visit [place] [address] Hollie Ambriz MD [facility] [place] [address] 12/03/2023 2:30 PM EDT Hospital Encounter Radiology at [place] [phone] Andrade Melvin MD [facility] [place] [address] documented as of this encounter Visit Diagnoses Not on filedocumented in this encounter Care Teams Apprentice Instrument Technician Relationship Specialty Start Date End Date Lorna Bal APRN [address] [place] [address] PCP - General Family Medicine 05/27/18 documented as of this encounter
--- OUTSIDE RECORDS SUMMARY | 2023-11-23 16:37 | XMS_ITS | Encounter Summary ---
Author Organization [facility] [place] [address] Care Team Providers Care Drafter Civil (Cad) Name Role Phone Lorna Bal APRN Primary Care Provider +1 -[phone] Encounter Details Date Type Department Care Team [...] (TeleHealth) Infectious Disease at [facility] [place] [phone] Lilli Joy APRN [facility] [place] [address] 12/03/2023 12:30 PM EDT Office Visit Infectious Disease at [place] [phone] Hollie Ambriz MD [facility] [place] [address] 12/03/2023 2:30 PM EDT Hospital En[place] [address] Andrade Melvin MD [facility] INTERVENTION[place] [address] documented as of this encounter Visit Diagnoses Not on filedocumented in this encounter Care Teams Drafter Civil (Cad) Relationship Specialty Start Date End Date Lorna Bal APRN [address] [place] [address] PCP - General Family Medicine 05/27/18 documented as of this encounter
--- OUTSIDE RECORDS SUMMARY | 2023-11-23 16:37 | XMS_ITS | Encounter Summary ---
Author Organization [facility] [place] [place] [address] Care Team Providers Care Photographic Equipment Mechanic Name Role Phone Lorna Bal APRN Primary Care Provider +1 -[phone] Encounter Details Date Type Department Care Team (Late st Contact Info) Description 07/22/2022 Notes Only Infectious Disease at [facility] [place] [phone] Mesha Mckeon, RN Social History Tobacco Use [...] 07/22/2022 1:28 PM EDT Received call from [facility] who informed this underwriter that they are unable to obtain [...] EDT TH Visit (TeleHealth) Infectious Disease at [address] Lilli Joy APRN [facility] [place] [address] 12/03/2023 12:30 PM EDT Office Visit [place] [address] Hollie Ambriz MD [facility] [place] [address] 12/03/2023 2:30 PM EDT Hospital En[place] [address] Andrade Melvni MD [facility] [place] [address] documented as of this encounter Visit Diagnoses Not on filedocumented in this encounter Care Teams Photographic Equipment Mechanic Relationship Specialty Start Date End Date Lorna Bal APRN [address] [place] [address] PCP - General Family Medicine 05/27/18 documented as of this encounter
--- OUTSIDE RECORDS SUMMARY | 2023-11-23 16:37 | XMS_ITS | Encounter Summary ---
Author Organization [facility] Address [facility] [place] [address] Care Team Providers Care Polysilicon Preparation Worker Name Role Phone Lorna Bal APRN Primary Care Provider +1 -[phone] Encounter Details Date Type Department Care Team (Late st Contact Info) Description 07/17/2022 Telephone [place] [phone] Jamaal Estrada MD [facility] [place] [address] Social History Tobacco Use Types Packs/Day Years [...] EDT TH Visit (TeleHealth) [place] [phone] Lilli Joy APRN [facility] [place] [address] 12/03/2023 12:30 PM EDT Office Visit [place] [phone] Hollie Ambriz MD [facility] [place] [address] 12/03/2023 2:30 PM EDT Hospital En[place] [address] Andrade Melvin MD [facility] [place] [address] documented as of this encounter Visit Diagnoses Not on filedocumented in this encounter Care Teams Polysilicon Preparation Worker Relationship Specialty Start Date End Date Lorna Bal APRN [address] [place] [address] PCP - General Family Medicine 05/27/18 documented as of this encounter
--- OUTSIDE RECORDS SUMMARY | 2023-11-23 16:37 | XMS_ITS | Encounter Summary ---
Author Organization [facility] [place] [address] Care Team Providers Care Enterprise Application Developer Name Role Phone Lorna Bal APRN Primary Care Provider +1 -[phone] Encounter Details Date Type Department Care Team (Late st Contact Info) Description 07/09/2022 Notes Only Infectious Disease at [facility] [place] [address] Mesha Mckeon, RN Social History Tobacco Use [...] AM EDT Infectious Disease Department Faxed to [facility] and [facility] on 07/09/22 at 0950 Fax confirmation on 07/09/22 at 0952 Document(s) faxed: Standing labs documented in this encounter Plan of Treatment Upcoming Encounters Date Type Department Care Team (Late st Contact Info) Description 11/25/2023 2:00 PM EDT TH Visit (TeleHealth) Infectious Disease at [place] [phone] Lilli Joy APRN [facility] [place] [address] 12/03/2023 12:30 PM EDT Office Visit [place] [address] Hollie Ambriz MD [facility] [place] [address] 12/03/2023 2:30 PM EDT Hospital Encounter Radiology at [place] [phone] Andrade Melvin MD [facility] [place] [address] documented as of this encounter Visit Diagnoses Not on filedocumented in this encounter Additional Health Concerns Infection Onset Date Last Indicated Resolved Time Parainfluenza Virus 06/28/2022 06/28/2022 07/10/19 8:09 PM EDT documented as of this encounter Care Teams Enterprise Application Developer Relationship Specialty Start Date End Date Lorna Bal APRN [address] [place] [address] PCP - General Family Medicine 05/27/18 documented as of this encounter
--- OUTSIDE RECORDS SUMMARY | 2023-11-23 16:38 | XMS_ITS | Encounter Summary ---
[place] [address] Care Team Providers Care Decoration Checker Name Role Phone Lorna Bal APRN Primary Care Provider +1 -[phone] Encounter Details Date Type Department Care Team (Late st Contact Info) Description 06/19/2022 4:45 PM EST Ancillary Procedure [place] [phone] Joe Harrison MD [facility] [place] [address] Social History Tobacco Use Types Packs/Day Years [...] EDT TH Visit (TeleHealth) [place] [address] Lilli Joy APRN [facility] [place] [address] 12/03/2023 12:30 PM EDT Office [place] [address] Hollie Ambriz MD [facility] [place] [address] 12/03/2023 2:30 PM EDT Hospital [place] [address] Andrade Melvin MD [facility] [place] [address] documented as of this encounter Procedures Procedure Name Priority Date/Time Associated Diagnosis Comments FILM LIBRARY STORAGE ONLY ULTRASOUND STUDY Routine 06/19/2022 4:40 PM EST documented in this encounter Results * Film Library- Storage Only Ultrasound Study (06/19/2022 4:40 PM EST) Narrative [facility] - 06/19/2022 4:40 PM EST This exam is auto-finalizing. It's purpose is for storage only. Joe Harrison MD IMG FILM LIBRARY ORD ERABLES Performing Organization Address City/State/[facility] Co de Phone Number [place], [place] documented in this encounter Visit Diagnoses Not on filedocumented in this encounter Care Teams Decoration Checker Relationship Specialty Start Date End Date Lorna Bal APRN [address] [place] [address] PCP - General Family Medicine 05/27/18 documented as of this encounter
--- OUTSIDE RECORDS SUMMARY | 2023-11-23 16:38 | XMS_ITS | Encounter Summary ---
Author Organization [facility] [place] [address] Care Team Providers Care Corporate Training Manager Name Role Phone Lorna Bal APRN Primary Care Provider +1 -[phone] Encounter Details Date Type Department Care Team (Late st Contact Info) Description 06/17/2022 Ancillary Procedure [place] [address] [facility] [place] [address] Social History Tobacco Use Types Packs/Day Years [...] EDT TH Visit (TeleHealth) [place] [address] [facility] [place] [address] 12/03/2023 12:30 PM EDT Office [place] [address] [facility] INFECTIOUS DISEASE [place], [place] [address] 12/03/2023 2:30 PM EDT Hospital [place] [address] [facility] [place] [address] documented as of this encounter Procedures Procedure Name Priority Date/Time Associated Diagnosis Comments FILM LIBRARY STORAGE ONLY DX SPINE Routine 06/17/2022 12:00 AM EST documented in this encounter Results * Film Library- Storage Only DX Spine (06/17/2022 12:00 AM EST) Narrative [facility] - 06/19/2022 4:36 PM EST This exam is auto-finalizing. It's purpose is for storage only. Joe Harrison MD IMG FILM LIBRARY ORD ERABLES [place], [place] documented in this encounter Visit Diagnoses Not on filedocumented in this encounter Care Teams Corporate Training Manager Relationship Specialty Start Date End Date Lorna Bal APRN [address] [place] [address] PCP - General Family Medicine 05/27/18 documented as of this encounter
--- OUTSIDE RECORDS SUMMARY | 2023-11-23 16:38 | XMS_ITS | Encounter Summary ---
Author Organization [facility] Address [facility] [place] [address] Care Team Providers Care Liquor Runner Name Role Phone Lorna Bal APRN Primary Care Provider +1 -[phone] Encounter Details Date Type Department Care Team (Late st Contact Info) Description 06/30/2022 Orders [place] [phone] Sergey Keane MD [facility] [place] [address] Spinal abscess Social History Tobacco Use Types [...] EDT TH Visit (TeleHealth) [place] [address] Lilli Joy APRN [facility] [place] [address] 12/03/2023 12:30 PM EDT Office Visit [place] [address] Hollie Ambriz MD [facility] [place] [address] 12/03/2023 2:30 PM EDT Hospital Encounter [place] [address] Andrade Melvin MD [facility] [place] [address] documented as of this encounter Visit Diagnoses [...] documented as of this encounter Care Teams Liquor Runner Relationship Specialty Start Date End Date Lorna Bal APRN [address] [place] [address] PCP - General Family Medicine 05/27/18 documented as of this encounter
--- OUTSIDE RECORDS SUMMARY | 2023-11-23 16:38 | XMS_ITS | Encounter Summary ---
Author Organization [facility] Address [facility] [place] [address] Care Team Providers Care Salon Sales Consultant Name Role Phone Lorna Bal APRN Primary Care Provider +1 -[phone] Encounter Details Date Type Department Care Team (Latest Contact Info) Description 03/18/2019 1:45 PM EST - 03/18/2019 11:59 PM EST Hospital Encounter XRay at [address] [place] [address] Josse Mckee MD [facility] [address] Acquired dysplasia of hip, unspecified laterality Discharge [...] EDT TH Visit (TeleHealth) [place] [address] Lilli Joy APRN [facility] [place] [address] 12/03/2023 12:30 PM EDT Office [place] [address] Hollie Ambriz MD [facility] [place] [address] 12/03/2023 2:30 PM EDT Hospital Encounter Radiology at [address] Andrade Melvin MD [facility] [place] [address] documented as of this encounter Procedures Procedure [...] laterality documented in this encounter Care Teams Salon Sales Consultant Relationship Specialty Start Date End Date Lorna Bal APRN [address] [place] [address] PCP - General Family Medicine 05/27/18 documented as of this encounter
--- OUTSIDE RECORDS SUMMARY | 2023-11-23 16:38 | XMS_ITS | Encounter Summary ---
Author Organization [facility] Address [facility] [place] [address] Care Team Providers Care Director Life Name Role Phone Lorna Bal APRN Primary Care Provider +1 -[phone] Encounter Details Date Type Department Care Team (Late st Contact Info) Description 07/08/2022 Orders [place] [address] Jamaal Estrada MD [facility] [place] [address] Spinal abscess; Bacteremia; E coli infection; Soft [...] EDT TH Visit (TeleHealth) Infectious Disease at [place] [phone] Lilli Joy APRN [facility] [place] [address] 12/03/2023 12:30 PM EDT Office Visit Infectious Disease at [address]1000 Hollie Ambriz MD [facility] [place] [address] 12/03/2023 2:30 PM EDT Hospital En[place] [address] Andrade Melvin MD [facility] [place] [address] documented as of this encounter Visit Diagnoses [...] documented as of this encounter Care Teams Director Life Relationship Specialty Start Date End Date Lorna Bal APRN [address] [place] [address] PCP - General Family Medicine 05/27/18 documented as of this encounter
--- OUTSIDE RECORDS SUMMARY | 2023-11-23 16:38 | XMS_ITS | Encounter Summary ---
Author Organization [facility] Address [facility] [place] [address] Care Team Providers Care Wet Primer Powder Blender Name Role Phone Lorna Bal APRN Primary Care Provider [phone] [phone] Reason for Visit * Auth/Cert Specialty Diagnoses [...] Expiration Date Visits Re quested Visits Authorized [id number] 1 1 Encounter Details Date Type Department Care Team (Late st Contact Info) Description 06/14/2018 9:45 AM EST - 06/14/2018 11:30 AM EST Surgery [facility] [address] Keith Wilson MD [facility] ORAL [place] [address] SURGICAL EXTRACTIONS, REMOVAL OF IMPACTED TOOTH, COMPLETELY [...] closest emergency room or call the hospital barrel rifler operator at [phone] and ask for physician telephone solicitor supervisor covering for your physician. Questions or problems after 5pm or on a weekend: Call the [facility] barrel rifler operator at and ask for the physician telephone solicitor supervisor covering for your doctor. * Patient Instructions* [...] may be helpful. Most swelling will occur [id number] hours following the procedure. Mouth Rinse: Vigorous [...] can be reached during office hours at [phone]. If you have questions atnight or on weekends, Dr. Wilson can be reached at [phone]. documented in this encounter Medications at Time [...] BOTH LEGS performed by BARRERA OLIVER at [facility] MAIN OR ? ? PRO I&D, POST SPINE, LUMB/SACR/LUMBOSAC N/A 05/20/2014 @I & D, OPEN, DEEP ABSCESS, LUMBAR, SACRAL, LUMBOSACRAL performed by Freddy Isbell MD at [facility] MAIN OR ? ? PRO I&D, POST SPINE, LUMB/SACR/LUMBOSAC N/A 05/26/2014 @I & D, OPEN, DEEP ABSCESS, LUMBAR, SACRAL, LUMBOSACRAL performed by Freddy Isbell MD at [facility] MAIN OR ??? PRO OSTEOTOMY FEMUR SHAFT/SUPRACONDY 08/15/2010 ??OSTEOTOMY, FEMUR SHAFT OR SUPRACONDYLAR W/O FIXATION performed by BARRERA OLIVER at [facility] OR ??? PRO RECONSTRUC HIP SOCKET, RESEC FEM HEAD 08/15/2010 ??ACETABULOPLASTY (GIRDLESTONE), RESECTION FEMORAL HEAD, BILATERAL performed by BARRERA OILVER [facility] OR ??? PRO REMOVAL DEEP IMPLANT 08/15/2010 REMOVAL IMPLANT, DEEP, BRUNO performed by BARRERA OLIVER at [facility] OR ??? PRO REMOVE INFUSN DEVICE/PUMP N/A 05/11/2014 REMOVAL OF SPINE INFUSION PUMP performed by Jamaal Samuel MD at [facility] MAIN OR ??? PRO REMOVE SPINAL CANAL CATHETER N/A 05/11/2014 REMOVAL OF INTRATHECAL OR EPIDURAL CATHETER performed by Jamaal Samuel MD at [facility] OR ??? PRO REPR, DURAL/CSF LEAK, NOT REQ LAMINECTOMY N/A 05/20/2014 @REPAIR DURAL\CSF LEAK,NOT REQUIRING LAMINECTOMY performed by Freddy Isbell MD at [facility] OR Allergies Allergen Reactions ??? Fluoxetine Other (See Comments) HIVES, HEART RACES ??? Tegaderm [Transparent Dressings] Itching and Dermatitis Please use [id number] No current facility-administered medications on file prior [...] TOOTH (WRVU 1.09) No flowsheet data found. [place] PDMP QUERY DATE: 06/14/18 Risk Assessment Category: [...] No future appointments. Keith Wilson DMD, MD senior qc technician documented in this encounter Miscellaneous Notes * Op Note - Keith Wilson MD - 06/14/2018 11:06 AM EST [facility] Operative Note Patient Name: aTna Cavazos : [id number] MR#: [id number] Case Date: 06/14/2018 Surgeon: Surgeon(s) and Role: [...] tooth #32. Mucoperiosteum was reflected laterally andthe [place] drill was used to remove bone overlying [...] Visit (TeleHealth) Infectious Disease at [place] [phone] Lilli Joy APRN [facility] [place] [address] 12/03/2023 12:30 PM EDT Office [place] [address] Hollie Ambriz MD [facility] [place] [address] 12/03/2023 2:30 PM EDT Hospital [place] [address] Andrade Melvin MD [facility] [place] [address] documented as of this encounter Procedures Procedure [...] 0933 (New Bag - Prov ider: Laxmi Fowlre CRNA) Continuous Medication Order 06/12/2018 06/13/2018 06/14/2018 [...] Routine documented in this encounter Care Teams Wet Primer Powder Blender Relationship Specialty Start Date End Date Lorna Bal APRN [address] [place] [address] PCP - General Family Medicine 05/27/18 documented as of this encounter
--- OUTSIDE RECORDS SUMMARY | 2023-11-23 16:38 | XMS_ITS | Encounter Summary ---
Author Organization [facility] Address [facility] [place] [address] Care Team Providers Care Conveyor Maintenance Mechanic Name Role Phone Lorna Bal APRN Primary Care Provider [phone] Reason for Visit * Auth/Cert Specialty Diagnoses [...] Expiration Date Visits Re quested Visits Authorized [id number] 1 1 Encounter Details Date Type Department Care Team (Late st Contact Info) Description 06/14/2018 8:34 AM EST - 06/14/2018 12:20 PM EST Hospital Encounter [place] [phone] Keith Wilson MD [facility] ORAL AND [place] [address] Discharge Disposition: Home Social History Tobacco Use [...] closest emergency room or call the hospital clothespin drier operator at [phone] and ask for physician administrative liaison covering for your physician. Questions or problems after 5pm or on a weekend: Call the [facility] clothespin drier operator at and ask for the physician administrative liaison covering for your doctor. * Patient Instructions* [...] may be helpful. Most swelling will occur [id number] hours following the procedure. Mouth Rinse: Vigorous [...] can be reached during office hours at [phone]. If you have questions atnight or on weekends, Dr. Wilson can be reached at [phone]. documented in this encounter Medications at Time [...] BOTH LEGS performed by BARRERA OLIVER at [facility] MAIN OR ? ? PRO I&D, POST SPINE, LUMB/SACR/LUMBOSAC N/A 05/20/2014 @I & D, OPEN, DEEP ABSCESS, LUMBAR, SACRAL, LUMBOSACRAL performed by Freddy Isbell MD at [facility] MAIN OR ? ? PRO I&D, POST SPINE, LUMB/SACR/LUMBOSAC N/A 05/26/2014 @I & D, OPEN, DEEP ABSCESS, LUMBAR, SACRAL, LUMBOSACRAL performed by Freddy Isbell MD at [facility] MAIN OR ??? PRO OSTEOTOMY FEMUR SHAFT/SUPRACONDY 08/15/2010 ??OSTEOTOMY, FEMUR SHAFT OR SUPRACONDYLAR W/O FIXATION performed by BARRERA OLIVER at [facility] MAIN OR ??? PRO RECONSTRUC HIP SOCKET, RESEC FEM HEAD 08/15/2010 ??ACETABULOPLASTY (GIRDLESTONE), RESECTION FEMORAL HEAD, BILATERAL performed by BARRERA OLIVER [facility] OR ??? PRO REMOVAL DEEP IMPLANT 08/15/2010 REMOVAL IMPLANT, DEEP, BRUNO performed by BARRERA OLIVER at [facility] MAIN OR ??? PRO REMOVE INFUSN DEVICE/PUMP N/A 05/11/2014 REMOVAL OF SPINE INFUSION PUMP performed by Jamaal Samuel MD at [facility] OR ??? PRO REMOVE SPINAL CANAL CATHETER N/A 05/11/2014 REMOVAL OF INTRATHECAL OR EPIDURAL CATHETER performed by Jamaal Samuel MD at [facility] OR ??? PRO REPR, DURAL/CSF LEAK, NOT REQ LAMINECTOMY N/A 05/20/2014 @REPAIR DURAL\CSF LEAK,NOT REQUIRING LAMINECTOMY performed by Freddy Isbell MD at [facility] OR Allergies Allergen Reactions ??? Fluoxetine Other (See Comments) HIVES, HEART RACES ??? Tegaderm [Transparent Dressings] Itching and Dermatitis Please use [id number] No current facility-administered medications on file prior [...] TOOTH (WRVU 1.09) No flowsheet data found. [place] PDMP QUERY DATE: 06/14/18 Risk Assessment Category: Low Tana S Cavazos [...] No future appointments. Keith Wilson DMD, MD sales service executive documented in this encounter Miscellaneous Notes * Op Note - Keith Wilson MD - 06/14/2018 11:06 AM EST [facility] Operative Note Patient Name: Tana Cavazos : [id number] MR#: [id number] Case Date: 06/14/2018 Surgeon: Surgeon(s) and Role: [...] draped in the standard fashion for behavioral psychologist. The oral cavity was suctioned and an [...] tooth #32. Mucoperiosteum was reflected laterally andthe [employer] drill was used to remove bone overlying [...] Visit (TeleHealth) Infectious Disease at [place] [phone] Lilli Joy APRN [facility] [place] [address] 12/03/2023 12:30 PM EDT Office Visit Infectious Disease at [place] [phone] Hollie Ambriz MD [facility] [place] [address] 12/03/2023 2:30 PM EDT Hospital Encounter Radiology at [place] [phone] Andrade Melvin MD [facility] DR [place] [address] documented as of this encounter Procedures Procedure [...] Routine documented in this encounter Care Teams Conveyor Maintenance Mechanic Relationship Specialty Start Date End Date Lorna Bal APRN [address] [place] [address] PCP - General Family Medicine 05/27/18 documented as of this encounter
--- OUTSIDE RECORDS SUMMARY | 2023-11-23 16:38 | XMS_ITS | Encounter Summary ---
Author Organization [facility] Address [facility] [place] [address] Care Team Providers Care Security Sales Manager Name Role Phone Lorna Bal APRN Primary Care Provider [phone] [phone] Reason for Visit * Reason Comments Cerebral Palsy CP hip dysplasia Encounter Details Date Type Department Care Team (Late st Contact Info) Description 03/18/2019 2:00 PM EST Office [place] [phone] Josse Mckee MD [facility] [place] [address] Acquired dysplasia of hip, unspecified laterality Social [...] NAME: Tana Cavazos AGE: 23 y.o.. MR#: [id number] ? DATE OF VISIT: 03/18/2019 ? STAFF: [...] continued pain. She continues to wear a [place] TLSO brace for her residual curve. She [...] would be continued care with an adult day care provider to try to utilize botox/phenol injections to manage her pain. He did recommend [facility] in the [place] area, as a good option for an adult day care provider. She can follow up PRN with Dr. Mckee, and will be transitioning to an adult provider. documented in this encounter Plan of Treatment Upcoming Encounters Date Type Department Care Team (Late st Contact Info) Description 11/25/2023 2:00 PM EDT TH Visit (TeleHealth) [place] [phone] Lilli Joy APRN [facility] [place] [address] 12/03/2023 12:30 PM EDT Office Visit Infectious Disease at [place] [phone] Hollie Ambriz MD [facility] [place] [address] 12/03/2023 2:30 PM EDT Hospital Encounter Radiology at [place] [phone] Andrade Melvin MD [facility] [place] [address] documented as of this encounter Results * [...] laterality documented in this encounter Care Teams Security Sales Manager Relationship Specialty Start Date End Date Lorna Bal APRN [address] [place] [address] PCP - General Family Medicine 05/27/18 documented as of this encounter
--- OUTSIDE RECORDS SUMMARY | 2023-11-23 16:38 | XMS_ITS | Encounter Summary ---
Author Organization [facility] [place] [address] Care Team Providers Care Wall Steamer Name Role Phone Lorna Bal APRN Primary Care Provider [phone] Reason for Referral * Home Health Care (Routine) - Closed Specialty Diagnoses / Procedures Referred By Contac t Referred To Contact Diagn[place] [address] [facility] [address] [address] Referral ID Status Reason Start Date Expiration Date V isits Requested Visits Authorized [id number] Closed Consult, Test & Treat 07/09/2022 01/05/2023 999 999 Reason for Visit * Reason Comments Surgical Post Op * Auth/Cert (Routine) Specialty Diagnoses / Procedures Referred By Contac t Referred To Contact Diagnoses Spinal abscess Procedures EMERGENCY GABI Eddi Váz[place] [address] [facility] Referral ID Status Reason Start Date Expiration Date Visits Re quested Visits Authorized [id number] 1 1 Encounter Details Date Type Department Care Team (Latest Contact Info) Description 06/24/2022 2:05 PM EST - 07/09/2022 10:29 AM EDT Hospital Encounter Medical Specialites Unit Level 1 [place] [id number] Eddi Váz[place] [address] [place] [address] [place] [address] [place] [address] [place] [address] Spinal abscess; Tachycardia; Bacteremia Discharge Disposition: Home [...] Tana Shelton Patient Age: 27 y.o. Language: Mohawk Race: White Ethnicity: Not nor Admit date: [...] please contact your inpatient physician through the [facility] Floorwalker . Issues afterhours and on weekends will [...] however on 06/17 she was brought to [facility] by her svp digital ad sales for possibly increased back pain and received [...] wbc, hgb, hct plt Recent Labs 07/09/22 03507/08/22 0548 07/07/22 0341 WBC 6.8 5.3 3.8* [...] have questions please contact the health director career services that requested your imaging first. Electronically signed by: Jamaal Villafuerte [facility] ([phone]), at 06/24/2022 6:56 PM IR All Drainage [...] than 25 cc. Fluoroscopy time: Please see [facility] IR technologist record for procedural dose/time. Cefazolin/ [...] The tract was dilated, and an 8 Malagasy drain was advanced over the wire into [...] aspiration demonstrated shiraz pus, and an 8 Malagasy drain was placed using ultrasound guidance as [...] maximal sterile barrier technique was used throughout. Sticker On fluoroscopic images were obtained. Contrast was injected [...] have questions please contact the health director career services that requested your imaging first. Lumbar Spine [...] have questions please contact the health director career services that requested your imaging first. All Drainage Procedures (Exam End: 07/04/2022 4:14 PM) Narrative Preoperative Diagnosis: re accumulated Lumbar collection by CT, Fevers Postoperative Diagnosis: Same Procedure Performed: Ultrasound and fluoroscopically guided drain placement. Operators: Mich Martino MD, Attending Estimated Blood Loss: Negligible. Fluoroscopy dose: Please see [facility] IR technologist record for procedural dose/time. Cefazolin/ [...] dilated over the wire and a 8.5 Malagasy drain was advanced over the wire into [...] have questions please contact the health director career services that requested your imaging first. Electronically signed by: Nathalie Whitaker MD, [facility] ([phone]), at 07/05/2022 5:38 PM IR Site Check In Recovery Room (Exam End: 07/08/2022 10:29 AM) Narrative This exam is auto-finalizing. No interpretation was done. Pending Studies and Lab Data: None Discharge Conditions/Prognosis: Stable Discharge to: Home Updated Allergies/ADRs: Allergies Allergen Reactions ??? Fluoxetine Other (See Comments) HIVES, HEART RACES ??? Tegaderm [Transparent Dressings] Itching and Dermatitis Please use [id number] ??? Penicillins Immunizations Given this Hospitalization: Immunization History Administered Date(s) Administered ??? Influenza Vaccine (Novel) [id number], Injectable 02/25/2009 ??? Influenza Vaccine w/Preservative, Split [...] back. The number for Infectious Disease is [phone] if you have questions or do not [...] Bal PCP Office Your Inpatient Doctor(s) at [facility]: Dr. Ana Guerrero [facility] Medicine Dr. Hills and Dr. Jefferson - Infectious Disease. General Instructions [facility] Vascular and Interventional Radiology Discharge Instructions For [...] is during regular office hours, please call [phone]. If it is after regular office hours, or on weekends or holidays, please call [phone] and ask to speak to the Hardness Tester job honer for Interventional Radiology. You have received medication [...] PM Lilli Joy APRN Infectious Disease at [facility] Arrive at: Home [phone] Please do not come in for this visit. Your provider will call you at the number you provided. 08/13/2022 11:30 AM Sergey Keane MD Infectious Disease at [facility] Arrive at: Outreach Team Member Area [phone] Future Orders Complete By Expires IR Drain Check/Change/Remove [FIO1543 Custom] 07/20/2022 08/06/2022 Process Instructions: Scheduling Instructions: Questions: Where will study be performed?: [facility] Radiology Reason for exam and clinical [...] in comments. Scheduling Instructions: Comments: Please evaluate Tnaa Shelton for admission to Home Health. [address] [place] [address] Date of : 1995 Inpatient DOCUMENTATION FOR VNA SERVICES (INCLUDING THOSE PATIENTS WITH MEDICARE COVERAGE REQUIRING HOME VNA SERVICES AND/OR HOSPICE SERVICES) PATIENT'S LOCATION: Tana Shelton [address] [facility] [address] Cell: Telephone Information: Tugboat Captain's Name: Mother/Guardian Anderson [phone] In discussion with the attending physician, it is certified that this patient is under their care and that they, or a Nurse Practitioner,Clinical Nurse specialist or Physician Accounting Clerks Supervisor who is working directly with them, had [...] Jefferson, Dr Samuel HOME HEALTH CARE AGENCY: [facility]. [address] [place] [address] Start of care: Anticipated start of care 24-48 hours after discharge Please note that any additional orders needs or changes will need to be obtained from this patient's PCP: Lorna Bal APRN [address] [facility] [address] All VNA agencies which cover the area of patient's residence have been reviewed, either verbally fatoumata writing, and patient/family have chosen the home health care agency noted ' Questions: Disciplines Requested: Nursing Discharge References/Attachments None documented in this encounter Discharge Instructions * Discharge Instructions* Hollie Perez MD - 06/25/2022 5:20 AM EST [facility] Vascular and Interventional Radiology Discharge Instructions For [...] is during regular office hours, please call [phone]. If it is after regular office hours, or on weekends or holidays, please call [phone] and ask to speak to the Hardness Tester job honer for Interventional Radiology. You have received medication [...] back. The number for Infectious Disease is [phone] if you have questions or do not [...] Bal PCP Office Your Inpatient Doctor(s) at [facility]: Dr. Perez - Hospital Medicine Dr. Hills [...] spent >30 minutes (Day of Discharge Code 62480) involved in the final examination of the [...] then cefepime vanc for 3 days at [facility] and discharged on cefpodoxime, referred to [...] of care, communication with family Full code ARCH CUSHION SKIVING MACHINE OPERATOR, nutrition recommendations, diet regular Anticipated Disposition, PT/OT recommendations Home tomorrow Team Pager ( Coverage 17/11) [phone] PCP Lorna Bal APRN Attestation IPI Certification I certify that I am a D-H credentialed attending provider with admitting privileges and that the patient meets or has met medical necessity to require an inpatient IPI level of care meeting a minimumof two midnights or is on the [facility] inpatient only procedure list (status C) due [...] 281 -- 240 Recent Labs 07/08/22 0548 07/07/2234007/06/22 0621 NA 140 141 138 K 3.8 3.7 3.6 CL 105 110* 104 CO2 Not Perf BUN 6* 5* 4* CREATININE 0.24* 0.23* 0.26* Recent Labs 07/07/2234007/06/22 0621 07/05/22 0531 AST 20 25 39* [...] growth No growth Recent Labs 06/25/22 0855 07/01/22 2021 07/03/22 2245 07/03/22 2305 07/06/22 0621 07/07/22 0341 BLOODCX No growth at 5 days. No growth at 5 days. No growth at 5 days. No growth at 4 days. Escherichia coli detected by PCR Isolate saved. If future testing is required, contact the Microbiology Residence Director. * No growth at 1 day. No [...] have questions please contact the health director career services that requested your imaging first. Electronically signed by: Jamaal Villafurete [facility] ([phone]), at 06/24/2022 6:56 PM XR Chest One [...] have questions please contact the health director career services that requested your imaging first. Lumbar Spine [...] have questions please contact the health director career services that requested your imaging first. Abdomen & [...] have questions please contact the health director career services that requested your imaging first. Electronically signed by: Nathalie Whitaker MD, [facility] ([phone]), at 07/05/2022 5:38 PM * Chrissie Lee [...] of care, communication with family Full code ARCH CUSHION SKIVING MACHINE OPERATOR, nutrition recommendations, diet regular Anticipated Disposition, PT/OT recommendations Home in next 1-2 days Team Pager ( Coverage 17/11) [phone] PCP Lorna Bal APRN Attestation IPI Certification I certify that I am a D-H credentialed attending provider with admitting privileges and that the patient meets or has met medical necessity to require an inpatient IPI level of care meeting a minimumof two midnights or is on the [facility] inpatient only procedure list (status C) due [...] future testing is required, contact the Microbiology Residence Director. * No growth at 1 day. ECG: [...] have questions please contact the health director career services that requested your imaging first. Electronically signed by: Jamaal Villafuerte [facility] ([phone]), at 06/24/2022 6:56 PM XR Chest One [...] have questions please contact the health director career services that requested your imaging first. Lumbar Spine [...] have questions please contact the health director career services that requested your imaging first. Abdomen & [...] have questions please contact the health director career services that requested your imaging first. Electronically signed by: Nathalie Whitaker MD, [facility] ([phone]), at 07/05/2022 5:38 PM * Sergey Keane MD - 07/07/2022 4:02 PM EDT Images from the original note were not included. DEPARTMENT OF INFECTIOUS DISEASE & [facility] INFECTIOUS DISEASE PROGRESS NOTE Reason for follow up: E coli bacteremia, Spinal collections, gluteal abscess Subjective:Case discussed during rounds with ID team and the attending Dr. Samuel Patient is seen and examined at bedside. relocation specialist at bedside, refers she is lethargic with [...] Sergey Doan MD Infectious Disease Fellow Pager [phone] 07/07/22 (Attending addendum to follow) Associated attestation [...] of care, communication with family Full code ARCH CUSHION SKIVING MACHINE OPERATOR, nutrition recommendations, diet regular Anticipated Disposition, PT/OT recommendations Home Team Pager ( Coverage 17/11) [phone] PCP Lorna Bal APRN Attestation IPI Certification I certify that I am a D-H credentialed attending provider with admitting privileges and that the patient meets or has met medical necessity to require an inpatient IPI level of care meeting a minimumof two midnights or is on the [facility] inpatient only procedure list (status C) due [...] contractures, no edema LABS: Recent Labs 07/05/2253007/04/22 0607 07/03/22 1008 WBC 3.4* 8.3 3.2* HGB 7.7* 8.3* 9.9* HCT 25.4* 26.0* 32.2* PLATELET 240 244 307 Recent Labs 07/06/2262007/05/22 0531 07/04/22 0607 NA 138 142 134* K 3.6 3.8 4.1 CL 104 108* 100 CO2 Not Perf 25 24 BUN 4* 6* 8 CREATININE 0.26* 0.29* 0.34* Recent Labs 07/06/2262007/05/22 0531 AST 25 39* ALT 57* 74* [...] future testing is required, contact the Microbiology Residence Director. * ECG: Recent Labs 07/04/22 0016 DIAGLINE [...] have questions please contact the health director career services that requested your imaging first. Electronically signed by: Jamaal Villafuerte [facility] ([phone]), at 06/24/2022 6:56 PM XR Chest One [...] have questions please contact the health director career services that requested your imaging first. Lumbar Spine [...] have questions please contact the health director career services that requested your imaging first. Abdomen & [...] have questions please contact the health director career services that requested your imaging first. Electronically signed by: Nathalie Whitaker MD, [facility] ([phone]), at 07/05/2022 5:38 PM * Willis Calero, [...] follow peripherally. - IR follow up ordered, operations scheduler notified. Willis Calero DO, MBA Interventional Radiology [...] and ADLs]:?Total ?? Surveillance [continuous indirect monitoring]:?? [facility] Room near nurses' station Rounding? [...] is still not taking PO intake, per acute care surgeon have concerns for strep. No BM on [...] on the bacteria. Shawn Woodard MD * Willis Calero DO - 07/05/2022 10:47 AM EST INTERVENTIONAL [...] of care, communication with family Full code ARCH CUSHION SKIVING MACHINE OPERATOR, nutrition recommendations, diet regular Anticipated Disposition, PT/OT recommendations Home Team Pager ( Coverage 17/11) [phone] PCP Lorna Bal APRN Attestation IPI Certification I certify that I am a D-H credentialed attending provider with admitting privileges and that the patient meets or has met medical necessity to require an inpatient IPI level of care meeting a minimumof two midnights or is on the [facility] inpatient only procedure list (status C) due [...] have questions please contact the health director career services that requested your imaging first. Electronically signed by: Jamaal Villafuerte [facility] ([phone]), at 06/24/2022 6:56 PM XR Chest One [...] have questions please contact the health director career services that requested your imaging first. Lumbar Spine [...] have questions please contact the health director career services that requested your imaging first. * Paige [...] and ADLs]:?Total ?? Surveillance [continuous indirect monitoring]:?? [facility] Bed alarm Room near nurses' station Rounding? [...] of : 1995 AGE: 27 y.o. Address: [address] [place] [address] Phone: [phone] (home) Mobile: Telephone Information: Referring Provider: Lorna [...] [Transparent Dressings] Itching and Dermatitis Please use [id number] ??? Penicillins Pertinent PMH: Patient Active Problem [...] Sergey Doan MD Infectious Disease Fellow Pager [phone] 07/04/22 (Attending addendum to follow) Associated attestation [...] Duarte MD - 07/04/2022 1:52 PM EST Hospital Medicine Attending Daily Progress [...] spiking fevers now. -Discussed with infectious disease warehouse consultant. Patient will get a repeat aspiration [...] of care, communication with family Full code ARCH CUSHION SKIVING MACHINE OPERATOR, nutrition recommendations, diet regular Anticipated Disposition, PT/OT recommendations Home Team Pager ( Coverage 17/11) [phone] PCP Lorna Bal APRN Attestation IPI Certification I certify that I am a D-H credentialed attending provider with admitting privileges and that the patient meets or has met medical necessity to require an inpatient IPI level of care meeting a minimumof two midnights or is on the [facility] inpatient only procedure list (status C) due [...] Continuous infusions: ??? lactated Ringers 100 mL/hr (07/04/22940) PRN: ondansetron, Vancomycin Level - MAR Order [...] have questions please contact the health director career services that requested your imaging first. Electronically signed by: Jamaal Villafuerte [facility] ([phone]), at 06/24/2022 6:56 PM XR Chest One [...] have questions please contact the health director career services that requested your imaging first. Lumbar Spine [...] have questions please contact the health director career services that requested your imaging first. * Paige [...] and ADLs]: Total Surveillance [continuous indirect monitoring]: [facility] Bed alarm Room near nurses' station Rounding Patient-specific fall prevention interventions for sensory deficits provided, if applicable: [X] No * Lilli Hughes RPH - 07/04/2022 12:03 AM EST Clinical Pharmacist Note - VancFD Tana Shelton [id number] 1995 Tana Shelton is a 27 y.o. [...] have. Alternately,during off-hours (9p-7a) you may call [phone] to contact a pharmacist. Lilli Hughes RPH * Azucean Ryan RN - 07/03/2022 6:07 PM EST [...] ADLs]: Hands on Surveillance [continuous indirect monitoring]: Moraima purposeful rouding Patient-specific fall prevention interventions for sensory deficits [...] of care, communication with family Full code ARCH CUSHION SKIVING MACHINE OPERATOR, nutrition recommendations, diet regular Anticipated Disposition, PT/OT recommendations Home Team Pager ( Coverage 17/11) [phone] PCP Lorna Bal APRN Attestation IPI Certification I certify that I am a D-H credentialed attending provider with admitting privileges and that the patient meets or has met medical necessity to require an inpatient IPI level of care meeting a minimumof two midnights or is on the [facility] inpatient only procedure list (status C) due [...] change was found Confirmed by Lyndon Lafleur ([id number]) on 07/02/2022 5:10:53 PM QTCCALC 443 VASCULAR: [...] have questions please contact the health director career services that requested your imaging first. Electronically signed by: Jamaal Villafuerte, [facility] ([phone]), at 06/24/2022 6:56 PM XR Chest One [...] have questions please contact the health director career services that requested your imaging first. * Nury [...] Duarte MD - 07/02/2022 1:21 PM EST [facility] Medicine Attending Daily Progress Note DATE OF [...] of care, communication with family Full code ARCH CUSHION SKIVING MACHINE OPERATOR, nutrition recommendations, diet regular Anticipated Disposition, PT/OT recommendations Home Team Pager ( Coverage 17/11) [phone] PCP Lorna Bal APRN Attestation IPI Certification I certify that I am a D-H credentialed attending provider with admitting privileges and that the patient meets or has met medical necessity to require an inpatient IPI level of care meeting a minimumof two midnights or is on the [facility] inpatient only procedure list (status C) due [...] have questions please contact the health director career services that requested your imaging first. Electronically signed by: Jamaal Villafuerte [facility] ([phone]), at 06/24/2022 6:56 PM * Karrie Smallwood - 07/02/2022 12:21 PM EST Nutrition Services Note - Low Nutrition Acuity Tana Shelton is a 27 y.o. female Reason for intervention: hospital day 9 Nutrition Plan: Continue current diet. Encourage good PO intake. Multivitamin with minerals noted. Monitor weight. Patient screened for hospital length of stay. Tetryl Blender Operator communicated with RN by secure chat and primary acute care surgeon by phone. Per primary caregiver, patient has [...] weeks ago, where patient weighed 108 lbs. Tetryl Blender Operator recommends an updated weight on patient to [...] unless consulted in the interim. ALEJANDRO Osei [phone] * Emeka Zavala MD - 07/02/2022 7:47 [...] Duarte MD - 07/01/2022 1:50 PM EST Hospital Medicine Attending Daily Progress [...] of care, communication with family Full code ARCH CUSHION SKIVING MACHINE OPERATOR, nutrition recommendations, diet regular Anticipated Disposition, PT/OT recommendations Home Team Pager ( Coverage 17/11) [phone] PCP Lorna Bal APRN Attestation IPI Certification I certify that I am a D-H credentialed attending provider with admitting privileges and that the patient meets or has met medical necessity to require an inpatient IPI level of care meeting a minimumof two midnights or is on the [facility] inpatient only procedure list (status C) due [...] Lateral leads Confirmed by MD Mele, Luba ([id number]) on 06/29/2022 9:49:48 PM QTCCALC 458 VASCULAR: [...] have questions please contact the health director career services that requested your imaging first. Electronically signed by: Jamaal Villafuerte [facility] ([phone]), at 06/24/2022 6:56 PM * Tegan Snyder RN - 07/01/2022 11:44 AM EST ANGIO NURSING DATABASE Name: Tana Shelton Date of : 1995 AGE: 27 y.o. Address: [address] [place] [address] Phone: [phone] (home) Mobile: Telephone Information: Referring Provider: Lorna [...] [Transparent Dressings] Itching and Dermatitis Please use [id number] ??? Penicillins Pertinent PMH: Patient Active Problem [...] Patient Name: Tana Shelton : 1995 MR#: [id number] Received contact from primary team regarding drain [...] rashes are noted Labs: CBC: Recent Labs 06/30/2242806/29/2255706/28/22537 WBC 6.4 5.6 5.6 HGB 9.4* 9.8* 9.9* PLATELET 349 345 371* Chemistry: Recent Labs 06/30/2242806/29/2255706/28/2253706/27/2255706/26/22537 NA 142 134* 137 138 141 K [...] Sergey Doan MD Infectious Disease Fellow Pager [phone] 06/30/22 (Attending addendum to follow) Associated attestation [...] of care, communication with family Full code ARCH CUSHION SKIVING MACHINE OPERATOR, nutrition recommendations, diet regular Anticipated Disposition, PT/OT recommendations Home Team Pager ( Coverage 17/11) [phone] PCP Lorna Bal APRN Attestation IPI Certification I certify that I am a D-H credentialed attending provider with admitting privileges and that the patient meets or has met medical necessity to require an inpatient IPI level of care meeting a minimumof two midnights or is on the [facility] inpatient only procedure list (status C) due [...] Lateral leads Confirmed by MD Shabazz Danette ([id number]) on 06/29/2022 9:49:48 PM QTCCALC 458 VASCULAR: [...] have questions please contact the health director career services that requested your imaging first. Electronically signed by: Jamaal Villafuerte [facility] ([phone]), at 06/24/2022 6:56 PM * Estevan Alfaro [...] of care, communication with family Full code ARCH CUSHION SKIVING MACHINE OPERATOR, nutrition recommendations, diet regular Anticipated Disposition, PT/OT recommendations Home Team Pager ( Coverage 17/11) [phone] PCP Lorna Bal APRN Attestation IPI Certification I certify that I am a D-H credentialed attending provider with admitting privileges and that the patient meets or has met medical necessity to require an inpatient IPI level of care meeting a minimumof two midnights or is on the [facility] inpatient only procedure list (status C) due [...] SKIN: moist, (-) rash LABS: Recent Labs 06/29/2255706/28/2253706/27/22557 WBC 5.6 5.6 5.5 HGB 9.8* 9.9* 9.2* HCT 31.7* 31.6* 30.0* PLATELET 345 371* 389* Recent Labs 06/29/22 0506/28/22 0538 06/27/22 05 NA 134* 137 138 K 4.1 4.0 3.9 CL 102 102 102 CO2 21* 25 25 BUN 11 11 12 CREATININE 0.25* 0.27* 0.32* No results for input(s): AST, ALT, ALKPHOS, BILITOT, BILIDIR in the last 168 hours. Recent Labs 06/29/2258 06/28/2238 06/27/22 0558 CALCIUM 9.0 9.1 9.2 No results for [...] growth at 3 days. ECG: Recent Labs 06/26/222045 DIAGLINE Sinus tachycardia Abnormal ECG Confirmed by [...] have questions please contact the health director career services that requested your imaging first. Electronically signed by: Jamaal Villafuerte [facility] ([phone]), at 06/24/2022 6:56 PM * Edvin Looney [...] of care, communication with family Full code ARCH CUSHION SKIVING MACHINE OPERATOR, nutrition recommendations, diet regular Anticipated Disposition, PT/OT recommendations Home Team Pager ( Coverage 17/11) [phone] PCP Lorna Bal APRN Attestation IPI Certification I certify that I am a D-H credentialed attending provider with admitting privileges and that the patient meets or has met medical necessity to require an inpatient IPI level of care meeting a minimumof two midnights or is on the [facility] inpatient only procedure list (status C) due [...] SKIN: moist, (-) rash LABS: Recent Labs 06/28/2253706/27/22 0558 06/26/22 0538 WBC 5.6 5.5 5.3 HGB 9.9* 9.2* 10.1* HCT 31.6* 30.0* 33.5* PLATELET 371* 389* 467* Recent Labs 06/28/2253706/27/22 0558 06/26/22 0538 NA 137 138 141 K 4.0 3.9 4.2 CL 102 102 103 CO2 25 25 26 BUN 11 12 12 CREATININE 0.27* 0.32* 0.28* No results for input(s): AST, ALT, ALKPHOS, BILITOT, BILIDIR in the last 168 hours. Recent Labs 06/28/2253706/27/2258 06/26/22 0538 CALCIUM 9.1 9.2 9.3 No [...] have questions please contact the health director career services that requested your imaging first. Electronically signed by: Jamaal Villafuerte [facility] ([phone]), at 06/24/2022 6:56 PM * Anurag Call DO - 06/27/2022 6:20 PM EST HOSPITAL MEDICINE ATTENDING DAILY PROGRESS NOTE Patient Tana Shelton 1995 [id number] Physician Anurag Call DO Pager [phone] Encounter Date June 27, 2022 Admit Date 06/24/2022 Hospital Day 3 PCP Lorna Bal, MICA PASTER [phone] ASSESSMENT/PLAN: Active Hospital Problems Diagnosis ??? Spinal [...] or cyanosis, no erythema LABS/IMAGING: Recent Labs 06/27/2255706/26/22 0506/25/22 022 NA 138 141 140 K 3.9 4.2 4.1 CL 102 103 103 CO2 25 26 27 BUN 12 12 9 CREATININE 0.32* 0.28* 0.30* CALCIUM 9.2 9.3 9.4 Recent Labs 06/27/2255706/26/2253706/25/22 022 WBC 5.5 5.3 7.2 HGB 9.2* 10.1* [...] minimumof two midnights or is on the [facility] inpatient only procedure list (status C) due to: Possible spinal abscess with involvement of previous placed hardware Anurag Call DO 2700 Hospitalist 06/27/2022 6:28 PM * CristianLucho MD - 06/27/2022 4:32 PM EST ORTHOPAEDIC [...] Zhanna Garrett - 06/26/2022 7:15 PM EST Whittling Room Operator Encounter Note Patient Name: Tana Shelton : [id number] MR#: [id number] Admit Date: 06/24/2022 2:05 PM Hospital Day [...] Tana's mom would be coming back from [place] until the hospital knows what next stepsare. Fannie stated that she was so glad she got Tana to [facility], as the smaller hospitals were dissmissing and [...] Call DO - 06/26/2022 4:51 PM EST [facility] MEDICINE ATTENDING DAILY PROGRESS NOTE Patient Tana Shelton 1995 [id number] Physician Anurag Call DO Pager [phone] Encounter Date June 26, 2022 Admit Date 06/24/2022 Hospital Day 2 PCP Lorna Bal, MICA PASTER [phone] ASSESSMENT/PLAN: Active Hospital Problems Diagnosis ??? Spinal [...] of previous placed hardware Anurag Call DO 8320 Hospitalist 06/26/2022 4:51 PM * Jimbo Willams [...] monitoring]: Bed alarm, masimo, purposeful rounding * CristianLucho MD - 06/26/2022 6:11 AM EST ORTHOPAEDIC [...] DAILY PROGRESS NOTE Patient Tana Shelton 1995 [id number] Physician Anurag Call DO Pager [phone] Encounter Date June 25, 2022 Admit Date 06/24/2022 Hospital Day 1 PCP Lorna Bal, MICA PASTER [phone] ASSESSMENT/PLAN: Active Hospital Problems Diagnosis ??? Spinal [...] data in the 24 hours ending 06/25/22 4233 GEN: awake, alert, NAD HEENT: PERRLA, EOMI, [...] have questions please contact the health director career services that requested your imaging first. Electronically signed by: Jamaal Villafuerte [facility] ([phone]), at 06/24/2022 6:56 PM CONSULTANTS: IP ADMISSION [...] minimumof two midnights or is on the [facility] inpatient only procedure list (status C) due to: Possible spinal abscess with involvement of previous placed hardware Anurag Call DO 2700 Hospitalist 06/25/2022 5:37 PM * Gadiel Morris RN - 06/25/2022 4:19 PM EST ANGIO NURSING DATABASE Name: Tana Shelton Date of : 1995 AGE: 27 y.o. Address: [address] [place] [address] (home) Mobile: Telephone Information: Referring Provider: Lorna [...] [Transparent Dressings] Itching and Dermatitis Please use [id number] ??? Penicillins Pertinent PMH: Patient Active Problem [...] drain on 06/25 (fluid culture negative, removed 3/7) with persistent fever, leukocytosis and CT L-Spine [...] All Drainage Procedures 06/25/2022 Mich Martino MD [facility] RAD ??? IR DRAIN CHECK/CHANGE/REMOVE 07/01/2022 IR Drain Check/Change/Remove 07/01/2022 Jamaal Jenkins, DO [facility] RAD ??? PRO APPLY OF HIP CASTS, TWO LEGS 08/15/2010 CAST APPLICATION, HIP SPICA, BOTH LEGS performed by BARRERA OLIVER at [facility] OR ? ? PRO I&D, POST SPINE, LUMB/SACR/LUMBOSAC N/A 05/20/2014 @I & D, OPEN, DEEP ABSCESS, LUMBAR, SACRAL, LUMBOSACRAL performed by Freddy Isbell MD at [facility] OR ? ? PRO I&D, POST SPINE, LUMB/SACR/LUMBOSAC N/A 05/26/2014 @I & D, OPEN, DEEP ABSCESS, LUMBAR, SACRAL, LUMBOSACRAL performed by Freddy Isbell MD at [facility] OR ??? PRO IMPACT TOOTH REMOV COMP BONY N/A 06/14/2018 SURGICAL EXTRACTIONS, REMOVAL OF IMPACTED TOOTH, COMPLETELY BONY (WRVU 1.93) performed by Keith Cotton MD at [facility] OSC ??? PRO OSTEOTOMY FEMUR SHAFT/SUPRACONDY 08/15/2010 ??OSTEOTOMY, FEMUR SHAFT OR SUPRACONDYLAR W/O FIXATION performed by BARRERA OLIVER at [facility] MAIN OR ??? PRO RECONSTRUC HIP SOCKET, RESEC FEM HEAD 08/15/2010 ??ACETABULOPLASTY (GIRDLESTONE), RESECTION FEMORAL HEAD, BILATERAL performed by BARRERA OLIVER [facility] MAIN OR ??? PRO REMOVAL DEEP IMPLANT 08/15/2010 REMOVAL IMPLANT, DEEP, BRUNO performed by BARRERA OLIVER at [facility] MAIN OR ??? PRO REMOVAL ERUPTED TOOTH WITH ELEVATION OF MUCOPERIOSTEAL FLAP N/A 06/14/2018 SURGICAL EXTRACTIONS REQUIRING ELEVATION OF MUCOPERIOSTEAL FLAP AND REMOVAL OF BONE OR SECTION OF TOOTH (WRVU 1.09) performed by Keith Cotton MD at [facility] ??? PRO REMOVE INFUSN DEVICE/PUMP N/A 05/11/2014 REMOVAL OF SPINE INFUSION PUMP performed by Jamaal Samuel MD at [facility] OR ??? PRO REMOVE SPINAL CANAL CATHETER N/A 05/11/2014 REMOVAL OF INTRATHECAL OR EPIDURAL CATHETER performed by Jamaal Samuel MD at [facility] OR ??? PRO REPR, DURAL/CSF LEAK, NOT REQ LAMINECTOMY N/A 05/20/2014 @REPAIR DURAL\CSF LEAK,NOT REQUIRING LAMINECTOMY performed by Freddy Isbell MD at [facility] OR Social History and Habits: Social History [...] IR the day of procedure) 07/04/2022 Chrissie Lee PA-C * ShinerAnamika PA - 07/01/2022 9:39 AM EST Interventional Radiology [...] All Drainage Procedures 06/25/2022 Mich Martino MD [facility] ??? PRO APPLY OF HIP CASTS, TWO LEGS 08/15/2010 CAST APPLICATION, HIP SPICA, BOTH LEGS performed by BARRERA OLIVER at [facility] MAIN OR ? ? PRO I&D, POST SPINE, LUMB/SACR/LUMBOSAC N/A 05/20/2014 @I & D, OPEN, DEEP ABSCESS, LUMBAR, SACRAL, LUMBOSACRAL performed by Freddy Isbell MD at [facility] MAIN OR ? ? PRO I&D, POST SPINE, LUMB/SACR/LUMBOSAC N/A 05/26/2014 @I & D, OPEN, DEEP ABSCESS, LUMBAR, SACRAL, LUMBOSACRAL performed by Freddy Isbell MD at [facility] MAIN OR ??? PRO IMPACT TOOTH REMOV COMP BONY N/A 06/14/2018 SURGICAL EXTRACTIONS, REMOVAL OF IMPACTED TOOTH, COMPLETELY BONY (WRVU 1.93) performed by Keith Cotton MD at [facility] ??? PRO OSTEOTOMY FEMUR SHAFT/SUPRACONDY 08/15/2010 ??OSTEOTOMY, FEMUR SHAFT OR SUPRACONDYLAR W/O FIXATION performed by BARRERA OLIVER at [facility] OR ??? PRO RECONSTRUC HIP SOCKET, RESEC FEM HEAD 08/15/2010 ??ACETABULOPLASTY (GIRDLESTONE), RESECTION FEMORAL HEAD, BILATERAL performed by BARRERA OLIVER [facility] OR ??? PRO REMOVAL DEEP IMPLANT 08/15/2010 REMOVAL IMPLANT, DEEP, BRUNO performed by BARRERA OLIVER at [facility] OR ??? PRO REMOVAL ERUPTED TOOTH WITH ELEVATION OF MUCOPERIOSTEAL FLAP N/A 06/14/2018 SURGICAL EXTRACTIONS REQUIRING ELEVATION OF MUCOPERIOSTEAL FLAP AND REMOVAL OF BONE OR SECTION OF TOOTH (WRVU 1.09) performed by Keith Cotton MD at [facility] ??? PRO REMOVE INFUSN DEVICE/PUMP N/A 05/11/2014 REMOVAL OF SPINE INFUSION PUMP performed by Jamaal Samuel MD at [facility] OR ??? PRO REMOVE SPINAL CANAL CATHETER N/A 05/11/2014 REMOVAL OF INTRATHECAL OR EPIDURAL CATHETER performed by Jamaal Samuel MD at [facility] MAIN OR ??? PRO REPR, DURAL/CSF LEAK, NOT REQ LAMINECTOMY N/A 05/20/2014 @REPAIR DURAL\CSF LEAK,NOT REQUIRING LAMINECTOMY performed by Freddy Isbell MD at [facility] OR Social History and Habits: Social History [...] Tegaderms. S. Gómez Ellison MD PGY-2 Pager #[phone] Department of Radiology [facility] 06/25/2022 Source Note - Hank Nunez [...] BOTH LEGS performed by BARRERA OLIVER at [facility] MAIN OR ? ? PRO I&D, POST SPINE, LUMB/SACR/LUMBOSAC N/A 05/20/2014 @I & D, OPEN, DEEP ABSCESS, LUMBAR, SACRAL, LUMBOSACRAL performed by Freddy Isbell MD at [facility] MAIN OR ? ? PRO I&D, POST SPINE, LUMB/SACR/LUMBOSAC N/A 05/26/2014 @I & D, OPEN, DEEP ABSCESS, LUMBAR, SACRAL, LUMBOSACRAL performed by Freddy Isbell MD at [facility] MAIN OR ??? PRO IMPACT TOOTH REMOV COMP BONY N/A 06/14/2018 SURGICAL EXTRACTIONS, REMOVAL OF IMPACTED TOOTH, COMPLETELY BONY (WRVU 1.93) performed by Keith Cotton MD at [facility] ??? PRO OSTEOTOMY FEMUR SHAFT/SUPRACONDY 08/15/2010 ??OSTEOTOMY, FEMUR SHAFT OR SUPRACONDYLAR W/O FIXATION performed by BARRERA OLIVER at [facility] MAIN OR ??? PRO RECONSTRUC HIP SOCKET, RESEC FEM HEAD 08/15/2010 ??ACETABULOPLASTY (GIRDLESTONE), RESECTION FEMORAL HEAD, BILATERAL performed by BARRERA OLIVER [facility] MAIN OR ??? PRO REMOVAL DEEP IMPLANT 08/15/2010 REMOVAL IMPLANT, DEEP, BRUNO performed by BARRERA OLIVER at [facility] MAIN OR ??? PRO REMOVAL ERUPTED TOOTH WITH ELEVATION OF MUCOPERIOSTEAL FLAP N/A 06/14/2018 SURGICAL EXTRACTIONS REQUIRING ELEVATION OF MUCOPERIOSTEAL FLAP AND REMOVAL OF BONE OR SECTION OF TOOTH (WRVU 1.09) performed by Keith Cotton MD at [facility] ??? PRO REMOVE INFUSN DEVICE/PUMP N/A 05/11/2014 REMOVAL OF SPINE INFUSION PUMP performed by Jamaal Samuel MD at [facility] MAIN OR ??? PRO REMOVE SPINAL CANAL CATHETER N/A 05/11/2014 REMOVAL OF INTRATHECAL OR EPIDURAL CATHETER performed by Jamaal Samuel MD at [facility] OR ??? PRO REPR, DURAL/CSF LEAK, NOT REQ LAMINECTOMY N/A 05/20/2014 @REPAIR DURAL\CSF LEAK,NOT REQUIRING LAMINECTOMY performed by Freddy Isbell MD at [facility] OR Social history and habits: Social History [...] BOTH LEGS performed by BARRERA OLIVER at [facility] MAIN OR ? ? PRO I&D, POST SPINE, LUMB/SACR/LUMBOSAC N/A 05/20/2014 @I & D, OPEN, DEEP ABSCESS, LUMBAR, SACRAL, LUMBOSACRAL performed by Freddy Isbell MD at [facility] MAIN OR ? ? PRO I&D, POST SPINE, LUMB/SACR/LUMBOSAC N/A 05/26/2014 @I & D, OPEN, DEEP ABSCESS, LUMBAR, SACRAL, LUMBOSACRAL performed by Freddy Isbell MD at [facility] OR ??? PRO IMPACT TOOTH REMOV COMP BONY N/A 06/14/2018 SURGICAL EXTRACTIONS, REMOVAL OF IMPACTED TOOTH, COMPLETELY BONY (WRVU 1.93) performed by Keith Cotton MD at [facility] ??? PRO OSTEOTOMY FEMUR SHAFT/SUPRACONDY 08/15/2010 ??OSTEOTOMY, FEMUR SHAFT OR SUPRACONDYLAR W/O FIXATION performed by BARRERA OLIVER at [facility] OR ??? PRO RECONSTRUC HIP SOCKET, RESEC FEM HEAD 08/15/2010 ??ACETABULOPLASTY (GIRDLESTONE), RESECTION FEMORAL HEAD, BILATERAL performed by BARRERA OLIVER [facility] OR ??? PRO REMOVAL DEEP IMPLANT 08/15/2010 REMOVAL IMPLANT, DEEP, BRUNO performed by BARRERA OLIVER at [facility] MAIN OR ??? PRO REMOVAL ERUPTED TOOTH WITH ELEVATION OF MUCOPERIOSTEAL FLAP N/A 06/14/2018 SURGICAL EXTRACTIONS REQUIRING ELEVATION OF MUCOPERIOSTEAL FLAP AND REMOVAL OF BONE OR SECTION OF TOOTH (WRVU 1.09) performed by Keith Cotton MD at [facility] ??? PRO REMOVE INFUSN DEVICE/PUMP N/A 05/11/2014 REMOVAL OF SPINE INFUSION PUMP performed by Jamaal Samuel MD at [facility] OR ??? PRO REMOVE SPINAL CANAL CATHETER N/A 05/11/2014 REMOVAL OF INTRATHECAL OR EPIDURAL CATHETER performed by Jamaal Samuel MD at [facility] OR ??? PRO REPR, DURAL/CSF LEAK, NOT REQ LAMINECTOMY N/A 05/20/2014 @REPAIR DURAL\CSF LEAK,NOT REQUIRING LAMINECTOMY performed by Freddy Isbell MD at [facility] OR Social history and habits: Social History [...] quadriplegia ID: 27 y.o. Female presents to [facility] with redness and drainage from midline surgical [...] however on 06/17 she was brought to [facility] by her svp digital ad sales for possibly increased back pain and received [...] BOTH LEGS performed by BARRERA OLIVER at [facility] MAIN OR ? ? PRO I&D, POST SPINE, LUMB/SACR/LUMBOSAC N/A 05/20/2014 @I & D, OPEN, DEEP ABSCESS, LUMBAR, SACRAL, LUMBOSACRAL performed by Freddy Isbell MD at [facility] MAIN OR ? ? PRO I&D, POST SPINE, LUMB/SACR/LUMBOSAC N/A 05/26/2014 @I & D, OPEN, DEEP ABSCESS, LUMBAR, SACRAL, LUMBOSACRAL performed by Freddy Isbell MD at [facility] MAIN OR ??? PRO IMPACT TOOTH REMOV COMP BONY N/A 06/14/2018 SURGICAL EXTRACTIONS, REMOVAL OF IMPACTED TOOTH, COMPLETELY BONY (WRVU 1.93) performed by Keith Cotton MD at [facility] ??? PRO OSTEOTOMY FEMUR SHAFT/SUPRACONDY 08/15/2010 ??OSTEOTOMY, FEMUR SHAFT OR SUPRACONDYLAR W/O FIXATION performed by BARRERA OLIVER at [facility] MAIN OR ??? PRO RECONSTRUC HIP SOCKET, RESEC FEM HEAD 08/15/2010 ??ACETABULOPLASTY (GIRDLESTONE), RESECTION FEMORAL HEAD, BILATERAL performed by BARRERA OLIVER [facility] MAIN OR ??? PRO REMOVAL DEEP IMPLANT 08/15/2010 REMOVAL IMPLANT, DEEP, BRUNO performed by BARRERA OLIVER at [facility] MAIN OR ??? PRO REMOVAL ERUPTED TOOTH WITH ELEVATION OF MUCOPERIOSTEAL FLAP N/A 06/14/2018 SURGICAL EXTRACTIONS REQUIRING ELEVATION OF MUCOPERIOSTEAL FLAP AND REMOVAL OF BONE OR SECTION OF TOOTH (WRVU 1.09) performed by Keith Cotton MD at [facility] ??? PRO REMOVE INFUSN DEVICE/PUMP N/A 05/11/2014 REMOVAL OF SPINE INFUSION PUMP performed by Jamaal Samuel MD at [facility] MAIN OR ??? PRO REMOVE SPINAL CANAL CATHETER N/A 05/11/2014 REMOVAL OF INTRATHECAL OR EPIDURAL CATHETER performed by Jamaal Samuel MD at [facility] MAIN OR ??? PRO REPR, DURAL/CSF LEAK, NOT REQ LAMINECTOMY N/A 05/20/2014 @REPAIR DURAL\CSF LEAK,NOT REQUIRING LAMINECTOMY performed by Freddy Isbell MD at [facility] MAIN OR Prior To Admission Medications: (Not in a hospital admission) Allergies: Allergies Allergen Reactions ??? Fluoxetine Other (See Comments) HIVES, HEART RACES ??? Tegaderm [Transparent Dressings] Itching and Dermatitis Please use [id number] ??? Penicillins Family History: Family History Problem [...] Administered Date(s) Administered ??? Influenza Vaccine (Novel) [id number], Injectable 02/25/2009 ??? Influenza Vaccine w/Preservative, Split [...] improvement in thecellulitis. Tana was brought [facility] on 06/17/2022 by her svp digital ad sales as there was some concern for having perceived pain her back (patient is non-verbal). Patient was hospitalized for IV antibiotic treatment of a presumed cellulitis. examination by providers at [facility] did not not preceded evidence of [...] The patient was evaluated by orthopaedics at [facility] (Dr. Weiss) who did not recommend attempting to aspirate the area. Inflammatory labs on 06/19/20 were: WBC: 7, CRP: 7.5. She is afebrile, and there have been no fevers since the time she began oral antibiotics for the cellulitis. Prior to discharge Dr. Simmons from orthopedics at [facility] once consulted. Per his note on [...] be progressing again since her discharge from [facility] on 06/19/2020. Patient hasbeen afebrile [...] and did the previous consult note from [facility]. Spoke with orthopedics who are recommending touching base with radiology to see if adding contrast to his CT would help characterize the fluid collection. CT significant for 2 irregular collections within the posterior subcutaneous fat of the lumbar region. 190: Have paged Ortho surgery to discuss findings [...] 2046: Orthopedics were able to reach their land conservation specialist and will evaluate patient. Plan based [...] have questions please contact the health director career services that requested your imaging first. Electronically signed by: Jamaal Villafuerte [facility] ([phone]), at 06/24/2022 6:56 PM Assessment and Plan: 27 y.o. female with history of spastic quadriplegia CP, scoliosis, prior bilateral Girdlestone's who was recently discharged home on 06/19/2021 from [facility] where she received IV antibiotics for possible [...] regarding admission. Caregivers at bedside. Pt isin KHALIF. 9:47 PM caregivers have left the bedside [...] [facility] [address] [place] [address] Transportation: family or friend will provide *Mother [...] agreement with plan. Phyllis Abraham RN, BSN Speech Therapist Technician - Medicine Office of Care Management Office: Pager: [phone] * Plan of Care - Jigna Neal [...] yesterday morning Please call with any questions #[phone] Jean-Pierre Godinez RN * Consult Note - Vi Lawrence [facility] - 07/05/2022 8:27 AM EST ?? The [...] may have. Alternately, during off-hours you comfort marlon call [phone] to contact a pharmacist. * Care Management [...] the home.. Current Functional Ability: Completely Dependent *24/7 caregivers at home, may or may not [...] Agency/Support Group Needs: Homecare agency Agency Referrals: [facility] following for DC needs and possible acceptance. Transportation: family or friend will provide Barriers to discharge: Discharge planning Plan going forward: Repeat CT lumbar spine today due to recurrent low grade fevers Care Management will continue to follow and assist with discharge planning and coordination of care as indicated. Anticipated Date of Discharge: 07/07/2022 Phyllis D. Yanelis, RN, BSN Speech Therapist Technician - Medicine Office of Care Management Office: Pager: [phone] * Care Management - Amy Trejo RN [...] Agency Referrals: I have met with the community service representative (anderson) to: ?? discuss discharge planning needs. ?? provide the [facility], Office of Care Management letter from the Commodities Broker pertaining to rehabreferrals. ?? provide a letter describing our affiliations within the [facility] and educate about their right to choose where referrals are sent. ?? provide a list of Home Health Agencies / Durable Medical Equipment vendors which serve their preferred geographic area. ?? provided patient with [facility] Star Quality Rating handout. They have requested referrals to: [facility] [employer]. [address] [place] [phone] Note routed to a Appeals And Generalist Clerk who will communicate referrals to facilities and [...] Date of Discharge: 07/03/2022 Amy Trejo RN, Pager-[phone] * Plan of Care - Katherine Ryan RN - 07/02/2022 4:51 PM EST OUTCOME EVALUATION NOTE: OUTCOME SUMMARY: Alert on RA, assessment as documented. Does not appear to be in pain. LR 500cc bolus fo SBP 94 increased to 110. HR remain tachy to low 100s. Cont LR discontinued. St cath'ed for UA sample. CXR obtained. High temp [...] ADLs]: Total care Surveillance [continuous indirect monitoring]: Masyaritzao, purposeful rounding * Plan of Care - [...] ADLs]: Total care Surveillance [continuous indirect monitoring]: Moraima, purposeful rounding * Plan of Care - [...] improvement. On 06/17 she was seen at [facility] due to increased back pain and [...] with you. Please call with questions, pager [phone]. Discussed with attending, Dr. Brown Tee MD [...] is possible that her prior antibiotics at [facility] have made cultures less sensitive. * Plan of Care - Piter Magaña RN - 06/28/2022 5:15 AM EST OUTCOME EVALUATION NOTE: OUTCOME SUMMARY: Patient has been sleeping intermittently throughout the night. VSS. Mom remains atthe bedside and is attentive to patient. Continues on tele. HR noted to sustain in the 120's-130's.Tele showed ST. All other VSS. Patient asymptomatic. MD ([id number]) made aware and ordered 500 ml bolus [...] on Surveillance [continuous indirect monitoring]: Bed alarm, moraima, caregiver @ bedside * Initial Assessments - Alicja Franklin RN - 06/25/2022 11:11 AM ESTSummary: CM Initial Assessment Office of Care Management Initial Assessment Alicja Franklin RN reviewed record and discussed patient with Care Team. Source of Information: Team, bedside nurse, medical record, and Caregiver (Fannie Villarreal, caregiver.) Introduced self/reviewed role; services accepted. Reason [...] Guardian Name(s) of Court Appointed Guardian(s): Anderson Thorpe, mother Court Appointed Guardian(s) Contact Information: Guardianship [...] bed, lift device Home Address confirmed as: [address] [place] [address] Social & Family Supports: All names listed below confirmed with patient as current and correct Extended Emergency Contact Information Primary Emergency Contact: Anderson Thorpe [facility] Mobile Relation: Mother Secondary Emergency Contact: Curt Philippe [facility] Mobile Relation: Step parent Current Care [...] Insurance: N/A Prescription Coverage: Yes Preferred Pharmacy: [facility] [address] [place] [address] [facility] [address] [place] [address] [facility] Home Delivery - [facility] [address] [facility] ([place], [place]) [address] [facility] [id number] - [place], [place] - [address] [facility] [address] [facility] [id number] Status: Patient is a : No Primary Care Provider confirmed: Lorna Maia Valeriano, MICA PASTER [phone] Patient/Caregiver Goals of Treatment: Caregiver anticipates return [...] of care planning. Alicja Franklin RN, BSN kindergarten aide Office of Care Management Pager: [phone] * Consult Note - Piter Palmer MD - 06/24/2022 11:04 PM EST Images from the original note were not included. Orthopaedic Spine Consult Note Consult Received: 6PM Patient Seen: 7PM Attending: Dr. Christy Sadlerarthur Hayes Dirk is a 27 y.o. female who presents [...] in years. Patient was originally seen at [facility] where an ultrasound performed demonstrating a small fluid collection in the subcutaneous tissue. Patient was admitted for 2 days at [facility] for IV antibiotics and then ultimately transitioned to p.o. antibiotics on discharge. Patient presents to the [facility] ED today for persistent erythema despite antibiotic [...] BOTH LEGS performed by BARRERA OLIVER at [facility] MAIN OR ? ? PRO I&D, POST SPINE, LUMB/SACR/LUMBOSAC N/A 05/20/2014 @I & D, OPEN, DEEP ABSCESS, LUMBAR, SACRAL, LUMBOSACRAL performed by Freddy Isbell MD at [facility] MAIN OR ? ? PRO I&D, POST SPINE, LUMB/SACR/LUMBOSAC N/A 05/26/2014 @I & D, OPEN, DEEP ABSCESS, LUMBAR, SACRAL, LUMBOSACRAL performed by Freddy Isbell MD at [facility] MAIN OR ??? PRO IMPACT TOOTH REMOV COMP BONY N/A 06/14/2018 SURGICAL EXTRACTIONS, REMOVAL OF IMPACTED TOOTH, COMPLETELY BONY (WRVU 1.93) performed by Keith Cotton MD at [facility] ??? PRO OSTEOTOMY FEMUR SHAFT/SUPRACONDY 08/15/2010 ??OSTEOTOMY, FEMUR SHAFT OR SUPRACONDYLAR W/O FIXATION performed by BARRERA OLIVER at [facility] MA[facility] OR ??? PRO RECONSTRUC HIP SOCKET, RESEC FEM HEAD 08/15/2010 ??ACETABULOPLASTY (GIRDLESTONE), RESECTION FEMORAL HEAD, BILATERAL performed by BARRERA OLIVER [facility]ly [facility] MAIN OR ??? PRO REMOVAL DEEP IMPLANT 08/15/2010 REMOVAL IMPLANT, DEEP, BRUNO performed by BARRERA OLIVER at [facility] MAIN OR ??? PRO REMOVAL ERUPTED TOOTH WITH ELEVATION OF MUCOPERIOSTEAL FLAP N/A 06/14/2018 SURGICAL EXTRACTIONS REQUIRING ELEVATION OF MUCOPERIOSTEAL FLAP AND REMOVAL OF BONE OR SECTION OF TOOTH (WRVU 1.09) performed by Keith Cotton MD at [facility] OSC ??? PRO REMOVE INFUSN DEVICE/PUMP N/A 05/11/2014 REMOVAL OF SPINE INFUSION PUMP performed by Jamaal Samuel MD at [facility] OR ??? PRO REMOVE SPINAL CANAL CATHETER N/A 05/11/2014 REMOVAL OF INTRATHECAL OR EPIDURAL CATHETER performed by Jamaal Samuel MD at [facility] OR ??? PRO REPR, DURAL/CSF LEAK, NOT REQ LAMINECTOMY N/A 05/20/2014 @REPAIR DURAL\CSF LEAK,NOT REQUIRING LAMINECTOMY performed by Freddy Isbell MD at [facility] OR Home Medications: (Not in a hospital admission) Allergies: Allergies Allergen Reactions ??? Fluoxetine Other (See Comments) HIVES, HEART RACES ??? Tegaderm [Transparent Dressings] Itching and Dermatitis Please use [id number] ??? Penicillins Current Medications: No current facility-administered [...] possible poor wound healing. Joe Harrison MD [facility] - Department of Orthopaedic Surgery Director [employer] - Department of Orthopedic Surgery / Academics and Research Database Administration Associate Professor - [facility] 06/25/2022 * Consult Note - Kelvin Munson, [facility] - 06/24/2022 9:44 PM EST TelePharmacy Home Medication List Update for Medication Reconciliation 06/24/22 9:45 PM Tana Shelton 1995 Allergies Allergen Reactions ??? Fluoxetine Other (See Comments) HIVES, HEART RACES ??? Tegaderm [Transparent Dressings] Itching and Dermatitis Please use [id number] ??? Penicillins ??? Person Interviewed: adult svp digital ad sales ??? Quality of Interview/accuracy of medication list: [...] EDT TH Visit (TeleHealth) Infectious Disease at [place] [id number] Lilli Joy APRN [facility] [place] [address] 12/03/2023 12:30 PM EDT Office [place] [phone] Hollie Ambriz MD [facility] [place] [address] 12/03/2023 2:30 PM EDT Hospital Encounter Radiology at [place] [phone] Andrade Melvin MD [facility] [place] [address] Scheduled Referrals Name Type Priority Associated Diagnoses [...] 3:55 AM EDT) Neutrophils % 51.7 % [facility] Neutr Abs (ANC) 3.50 1.70 - 6.10 x10(3)/[facility] Lymphocytes % 39.1 % [facility] Lymphocytes Abs 2.6 0.9 - 3.2 x10(3)/[facility] Monocytes % 5.9 % [facility] Monocyte Abs 0.4 0.3 - 0.9 x10(3)/[facility] Eosinophils % 1.5 % [facility] Eosinophils Abs 0.1 0.0 - 0.4 x10(3)/[facility] Basophils % 0.6 % [facility] Basophils Abs 0.0 0.0 - 0.1 x10(3)/[facility] Immature Gran % 1.20 % [facility] Comment: Immature granulocytes(IG's)percentage and absolute count will include metamyelocytes, myelocytes, and promyelocytes. Blood smears from CBCs yielding IG's will be scanned manually for concordance. If this scan disagrees with the automated IG or if promyelocytes are noted, a manual differential will be performed. Debora Gran Abs 0.08(H) 0.00 - 0.04 x10(3)/[facility] Blood 07/09/2022 3:55 AM EDT 07/09/2022 4:02 AM EDT Narrative Resulting Agency Comment Spec In Lab Hollie Perez MD HEMATOLOGY ORDERABL ES [facility] [place] [address] * (ABNORMAL) Hemogram (07/09/2022 3:55 AM EDT) WBC 6.8 4.0 - 9.5 x10(3)/[facility] LABORATORY RBC 3.54(L) 4.00 - 5.21 x10(6)/[facility] Hemoglobin 8.8(L) 11.7 - 15.5 g/dL [facility] Hematocrit 28.1(L) 35.7 - 45.8 % [facility] MCV 79.4(L) 82.6 - 94.4 fL [facility] MCH 24.9(L) 27.1 - 32.0 pg [facility] MCHC 31.3(L) 31.7 - 35.0 g/dL [facility] Platelets 386(H) 145 - 357 x10(3)/[facility] LABOR[facility]ORY RDWSD 57.2(H) 37.0 - 46.0 [facility]ORY RDWCV 20.9(H) 11.5 - 14.1 % [facility] MPV 9.4 7.6 - 12.9 [facility] nRBC % Auto 0.0 % [facility] nRBC Abs Auto 0.000 0.000 - 0.000 x10(3)/[facility] Blood 07/09/2022 3:55 AM EDT 07/09/2022 4:02 AM EDT Narrative Resulting Agency Comment Spec In Lab Hollie Perez MD HEMATOLOGY ORDERABL ES [facility] [place] [address] * (ABNORMAL) Basic Metabolic Panel (non-fasting) (07/09/2022 3:55 AM EDT) Glucose Lvl 101 65 - 199 mg/dL [facility] Comment:Diabetes: >=200 mg/d L plus symptoms BUN 8 8 - 18 mg/dL [facility] Creatinine 0.26(L) 0.70 - 1.20 mg/dL [facility] Sodium 139 135 - 145 mmol/L [facility] Potassium 4.2 3.5 - 5.0 mmol/L [facility] Comment: Please note: ??Patients with WBC >100,000 may have falsely elevated Potassium levels. ??For accurate Potassium quantification in these patients send serum separator tube (gold top) for subsequent determinations. ??Contact the Clinical Chemistry Laboratory if there are any questions. Chloride 104 98 - 107 mmol/L [facility] CO2 23 22 - 31 mmol/L [facility] Anion Gap 12 5 - 15 mmol/L [facility] Calcium 9.1 8.5 - 10.5 mg/dL [facility] Estimated GFR 152 >=60 mL/min/1. 73 m?? [facility] Comment: This patient's estimated GFR [...] Lab Hollie Perez MD CHEMISTRY ORDERABLE S [facility] [place] [address] * IR Site Check In Recovery Room (07/08/2022 10:29 AM EDT) Narrative Dicom, Auditing User - 07/08/2022 10:29 AM EDT This exam is auto-finalizing. No interpretation was done. Hollie Perez MD IMG IR ORDERABLES * (ABNORMAL) Differential, Automated (07/08/2022 5:48 AM EDT) Neutrophils % 49.5 % [facility] Neutr Abs (ANC) 2.62 1.70 - 6.10 x10(3)/[facility] Lymphocytes % 41.6 % [facility] Lymphocytes Abs 2.2 0.9 - 3.2 x10(3)/[facility] Monocytes % 5.5 % [facility] Monocyte Abs 0.3 0.3 - 0.9 x10(3)/[facility] Eosinophils % 2.1 % [facility] Eosinophils Abs 0.1 0.0 - 0.4 x10(3)/[facility] Basophils % 0.4 % [facility] Basophils Abs 0.0 0.0 - 0.1 x10(3)/[facility] Immature Gran % 0.90 % [facility] Comment: Immature granulocytes(IG's)percentage and absolute count will include metamyelocytes, myelocytes, and promyelocytes. Blood smears from CBCs yielding IG's will be scanned manually for concordance. If this scan disagrees with the automated IG or if promyelocytes are noted, a manual differential will be performed. Debora Gran Abs 0.05(H) 0.00 - 0.04 x10(3)/[facility] Blood 07/08/2022 5:48 AM EDT 07/08/2022 5:53 AM EDT Narrative Resulting Agency Comment Spec In Lab Hollie Perez MD HEMATOLOGY ORDERABL ES [facility] [place] [address] * (ABNORMAL) Hemogram (07/08/2022 5:48 AM EDT) WBC 5.3 4.0 - 9.5 x10(3)/[facility] LABORATORY RBC 3.42(L) 4.00 - 5.21 x10(6)/[facility] Hemoglobin 8.4(L) 11.7 - 15.5 g/dL [facility] Hematocrit 27.2(L) 35.7 - 45.8 % [facility] MCV 79.5(L) 82.6 - 94.4 [facility] MCH 24.6(L) 27.1 - 32.0 pg [facility] MCHC 30.9(L) 31.7 - 35.0 g/dL [facility] Platelets 336 145 - 357 x10(3)/[facility] LABORATORY RDWSD 55.7(H) 37.0 - 46.0 [facility] RDWCV 19.9(H) 11.5 - 14.1 % [facility] MPV 9.2 7.6 - 12.9 [facility] nRBC % Auto 0.4 % [facility] nRBC Abs Auto 0.020(H) 0.000 - 0.000 x10(3)/[facility] Blood 07/08/2022 5:48 AM EDT 07/08/2022 5:53 AM EDT Narrative Resulting Agency Comment Spec In Lab Hollie Perez MD HEMATOLOGY ORDERABL ES [facility] [place] [address] * (ABNORMAL) Basic Metabolic Panel (non-fasting) (07/08/2022 5:48 AM EDT) Glucose Lvl 92 65 - 199 mg/dL [facility] Comment:Diabetes: >=200 mg/d L plus symptoms BUN 6(L) 8 - 18 mg/dL [facility] Creatinine 0.24(L) 0.70 - 1.20 mg/dL [facility] Sodium 140 135 - 145 mmol/L [facility] Potassium 3.8 3.5 - 5.0 mmol/L [facility] Comment: Please note: ??Patients with WBC >100,000 may have falsely elevated Potassium levels. ??For accurate Potassium quantification in these patients send serum separator tube (gold top) for subsequent determinations. ??Contact the Clinical Chemistry Laboratory if there are any questions. Chloride 105 98 - 107 mmol/L [facility] CO2 23 22 - 31 mmol/L [facility] Anion Gap 12 5 - 15 mmol/L [facility] Calcium 8.7 8.5 - 10.5 mg/dL [facility] Estimated GFR 155 >=60 mL/min/1. 73 m?? [facility] Comment: This patient's estimated GFR [...] Resulting Agency Comment Spec In Lab Hollie Peerz MD CHEMISTRY ORDERABLE S [facility] [place] [address] * Cortisol (07/08/2022 5:48 AM EDT) Cortisol 17.6 mcg/dL [facility] Comment: Reference ranges: ??AM (6-10am): ??4.8-19.5 mcg/dL ??PM (4-8pm) : ??2.5-11.9 mcg/dL Blood 07/08/2022 5:48 AM EDT 07/08/2022 5:53 AM EDT Narrative Resulting Agency Comment Spec In Lab Hollie Perez MD CHEMISTRY ORDERABLE S [facility] [place] [address] * (ABNORMAL) CRP, acute inflammation (07/08/2022 5:48 AM EDT) CRP 16.8(H) <=4.9 mg/L [facility] Blood 07/08/2022 5:48 AM EDT 07/08/2022 5:53 AM EDT Narrative Resulting Agency Comment Spec In Lab Hollie Perez MD CHEMISTRY ORDERABLE S Performing Organization Address [facility]/ZIP Co de Phone Number [facility] [place] [address] * (ABNORMAL) Ferritin (07/08/2022 5:48 AM EDT) Ferritin 204(H) 15 - 150 ng/mL [facility] Comment: Pediatric reference ranges not verified at [facility], interpret with caution. Reference ranges for females greater than 50 years of age approach values for men, i.e., 30-400 ng/mL. Blood 07/08/2022 5:48 AM EDT 07/08/2022 5:53 AM EDT Narrative Resulting Agency Comment Spec In Lab Hollie Perez MD CHEMISTRY ORDERABLE S Performing Organization Address City/[facility]/ZIP Co de Phone Number [facility] [place] [address] * (ABNORMAL) Iron and TIBC (07/08/2022 5:48 AM EDT) Iron 52 30 - 150 mcg/dL [facility] TIBC 217(L) 250 - 450 mcg/dL [facility] Iron Saturation 24 20 - 50 % [facility] Blood 07/08/2022 5:48 AM EDT 07/08/2022 5:53 AM EDT Narrative Resulting Agency Comment Spec In Lab Hollie Perez MD CHEMISTRY ORDERABLE S Performing Organization Address [facility] Co de Phone Number [facility] [place] [address] * EKG 12 Lead (07/07/2022 11:44 AM EDT) Ventricular rate 78 BPM MUSE SYSTEM Atrial Rate 78 BPM MUSE SYSTEM P-R Interval 132 ms MUSE SYSTEM QRS Duration 84 ms MUSE SYSTEM Q-T Interval 410 ms MUSE SYSTEM QTC Calculated (Bezet) 467 ms MUSE SYSTEM Calculated P [place] 23 degrees MUSE SYSTEM Calculated R [place] 0 degrees MUSE SYSTEM Calculated T [place] 24 degrees MUSE SYSTEM INTERPRETATION Normal sinus rhythm with sinus arrhythmia Cannot rule out Inferior infarct , age undetermined Abnormal ECG When compared with ECG of 04-JUL-2022 00:16, Vent. rate has decreased BY ??74 BPM Confirmed by MD Jeanmarie, Ty ([id number]) on 07/10/2022 4:37:33 PM MUSE SYSTEM 07/07/2022 11:4 4 AM EDT 07/10/2022 4:37 PM EDT Hollie Perez MD ECG ORDERABLES Performing Organization Address [facility] Co de Phone Number MUSE SYSTEM * (ABNORMAL) Blood Gas Venous ([facility]) (07/07/2022 7:10 AM EDT) pH Hitesh 7.42 7.32 - 7.42 [facility] pCO2 Hitesh 39(L) 41 - 51 mmHg [facility] pO2 Hitesh 58(H) 25 - 40 mmHg [facility] HCO3 Hitesh 24.5 mmol/L [facility] BE Ihtesh 0.0 mmol/L [facility] Hgb Blood Gas 8.8(L) 11.7 - 15.5 g/dL [facility] O2HB Hitesh 89.6 % [facility] COHB Hitesh 0.3 % [facility] Comment: Nonsmokers: 0.5-1.5% COHB Smokers: Variable, but usually less than 10% Toxic: 20-30% COHB Lethal: Greater than 60% COHB METHB Hitesh 0.1 <=1.5 % [facility] Na Whole Blood 138 135 - 145 mmol/L [facility] K Whole Blood 3.6 3.5 - 5.0 mmol/L [facility] Comment: Please note: Patients with WBC >100,000 may have falsely elevated Potassium levels. Contact the Clinical Chemistry Laboratory if there are any questions. ICa Whole Blood 1.16 1.15 - 1.33 mmol/L [facility] Comment: Note: ??Total bilirubin higher than 20 mg/dL may lead to falsely low ionized calcium. CL Whole Blood 109(H) 98 - 107 mmol/L [facility] Gluc Whole Bld 89 65 - 199 mg/dL [facility] Comment:Diabetes: >=200 mg/d L plus symptoms Lactate WB 1.3 0.5 - 2.2 mmol/L [facility] BGas Source Venous [facility] Blood Venous Draw / Unknown 07/07/2022 7:10 AM EDT 07/07/2022 7:18 AM EDT Narrative Resulting Agency Comment Spec In Lab Mayank Kang MD CHEMISTRY ORDERABLES [facility] [place] [address] * Scan, Peripheral Blood (07/07/2022 3:41 AM EDT) Plat Estimate Normal [facility] RBC Morphology Abnormal [facility] Macrocytes 1-5 /HPF [facility] Microcytes 6-10 /HPF [facility] Hypochromia Slight [facility] Ovalocytes 1-5 /HPF [facility] Giant Platelets Less than 1 /HPF MA RY [facility] Blood 07/07/2022 3:41 AM EDT 07/07/2022 3:46 AM EDT Narrative Resulting Agency Comment Spec In Lab Hollie Perez MD HEMATOLOGY ORDERABL ES [facility] [place] [address] * (ABNORMAL) Differential, Automated (07/07/2022 3:41 AM EDT) Neutrophils % 40.9 % [facility] Neutr Abs (ANC) 1.54(L) 1.70 - 6.10 x10(3)/ L [facility] Lymphocytes % 49.7 % [facility] Lymphocytes Abs 1.9 0.9 - 3.2 x10(3)/[facility] Monocytes % 6.3 % [facility] Monocyte Abs 0.2(L) 0.3 - 0.9 x10(3)/[facility] Eosinophils % 2.1 % [facility] Eosinophils Abs 0.1 0.0 - 0.4 x10(3)/[facility] Basophils % 0.5 % [facility] Basophils Abs 0.0 0.0 - 0.1 x10(3)/ L [facility] Immature Gran % 0.50 % [facility] Comment: Immature granulocytes(IG's)percentage and absolute count will include metamyelocytes, myelocytes, and promyelocytes. Blood smears from CBCs yielding IG's will be scanned manually for concordance. If this scan disagrees with the automated IG or if promyelocytes are noted, a manual differential will be performed. Debora Gran Abs 0.02 0.00 - 0.04 x10(3)/mc L [facility] Blood 07/07/2022 3:41 AM EDT 07/07/2022 3:46 AM EDT Narrative Resulting Agency Comment Spec In Lab Hollie Perez MD HEMATOLOGY ORDERABL ES Performing Organization Address City/[facility]/[place] [address] * (ABNORMAL) Hemogram (07/07/2022 3:41 AM EDT) WBC 3.8(L) 4.0 - 9.5 x10(3)/[facility] LAB[facility]ORY RBC 3.13(L) 4.00 - 5.21 x10(6)/[facility] Hemoglobin 7.6(L) 11.7 - 15.5 g/dL [facility] Hematocrit 25.5(L) 35.7 - 45.8 % [facility] MCV 81.5(L) 82.6 - 94.4 fL [facility] MCH 24.3(L) 27.1 - 32.0 pg [facility] MCHC 29.8(L) 31.7 - 35.0 g/dL [facility] Platelets 281 145 - 357 x10(3)/[facility] RDWSD 56.9(H) 37.0 - 46.0 [facility] RDWCV 19.5(H) 11.5 - 14.1 % [facility] MPV 9.5 7.6 - 12.9 [facility] nRBC % Auto 0.0 % [facility] nRBC Abs Auto 0.000 0.000 - 0.000 x10(3)/[facility] Blood 07/07/2022 3:41 AM EDT 07/07/2022 3:46 AM EDT Narrative Resulting Agency Comment Spec In Lab Hollie Perez MD HEMATOLOGY ORDERABL ES [facility] [place] [address] * (ABNORMAL) Basic Metabolic Panel (non-fasting) (07/07/2022 3:41 AM EDT) Glucose Lvl 90 65 - 199 mg/dL [facility] Comment:Diabetes: >=200 mg/d L plus symptoms BUN 5(L) 8 - 18 mg/dL [facility] Creatinine 0.23(L) 0.70 - 1.20 mg/dL [facility] Sodium 141 135 - 145 mmol/L [facility] Potassium 3.7 3.5 - 5.0 mmol/L [facility] Comment: Please note: ??Patients with WBC >100,000 may have falsely elevated Potassium levels. ??For accurate Potassium quantification in these patients send serum separator tube (gold top) for subsequent determinations. ??Contact the Clinical Chemistry Laboratory if there are any questions. Chloride 110(H) 98 - 107 mmol/L [facility] CO2 23 22 - 31 mmol/L [facility] Anion Gap 8 5 - 15 mmol/L [facility] Calcium 8.3(L) 8.5 - 10.5 mg/dL [facility] Estimated GFR 157 >=60 mL/min/1. 73 m?? [facility] Comment: This patient's estimated GFR [...] MD CHEMISTRY ORDERABLE S Performing Organization Address City/[facility]/ZIP Co de Phone Number [facility] [place] [address] * Blood culture (07/07/2022 3:41 AM EDT) Blood Culture No growth at 5 days. [facility] Blood 07/07/2022 3:41 AM EDT 07/07/2022 4:59 AM EDT Comment:L hand Narrative Resulting Agency Comment Spec In Lab Hollie Perez MD MICROBIOLOGY - BLOO D ORDERABLES Performing Organization Address [facility] Co de Phone Number [facility] [place] [address] * (ABNORMAL) Hepatic Function Panel (07/07/2022 3:41 AM EDT) Total Protein 6.0(L) 6.1 - 8.0 g/dL [facility] Albumin 2.9(L) 3.2 - 5.2 g/dL [facility] AST 20 0 - 30 unit/L [facility] ALT 42(H) 0 - 30 unit/L [facility] Alk Phos 177(H) 35 - 105 unit/L [facility] Total Bilirubin <0.2(L) 0.2 - 1.3 mg/dL [facility] Bili, Direct <0.1 0.0 - 0.3 mg/dL [facility] Blood 07/07/2022 3:41 AM EDT 07/07/2022 3:46 AM EDT Narrative Resulting Agency Comment Spec In Lab Hollie Perez MD CHEMISTRY ORDERABLE S Performing Organization Address City/[facility]/ZIP Co de Phone Number [facility] [place] [address] * (ABNORMAL) Hemoglobin and Hematocrit, blood (07/06/2022 6:40 PM EDT) Hemoglobin 8.5(L) 11.7 - 15.5 g/dL [facility] Hematocrit 26.4(L) 35.7 - 45.8 % [facility] Blood 07/06/2022 6:40 PM EDT 07/06/2022 6:46 PM EDT Narrative Resulting Agency Comment Spec In Lab Hollie Perez MD HEMATOLOGY ORDERABL ES Performing Organization Address City/[facility]/ZIP Co de Phone Number [facility] [place] [address] * Lactate, whole blood, send to lab ([facility]) (07/06/2022 6:40 PM EDT) Lactate WB 0.6 0.5 - 2.2 mmol/L [facility] Blood 07/06/2022 6:40 PM EDT 07/06/2022 6:46 PM EDT Narrative Resulting Agency Comment Spec In Lab Hollie Perez MD CHEMISTRY ORDERABLE S Performing Organization Address [facility] Co de Phone Number [facility] [place] [address] * POCT Glucose (07/06/2022 5:36 PM EDT) Pathologist [facility] POC Glucose 86 65 - 199 mg/dL [facility] Comment: Supplemental ranges: <140 mg/dL before meals <180 mg/dL all other times of the day Blood 07/06/2022 5:36 PM EDT 07/06/2022 5:36 PM EDT Hollie Perez MD POINT OF CARE TEST ORDERABLES Performing Organization Address [facility]/ZIP Co de Phone Number [facility] [place] [address] * (ABNORMAL) CRP, acute inflammation (07/06/2022 6:21 AM EDT) CRP 54.2(H) <=4.9 mg/L [facility] Blood Venous Draw / Unknown 07/06/2022 6:21 AM EDT 07/06/2022 7:28 AM EDT Narrative Resulting Agency Comment Spec In Lab Hollie Perez MD CHEMISTRY ORDERABLE S [facility] [place] [address] * (ABNORMAL) Basic Metabolic Panel (non-fasting) (07/06/2022 6:21 AM EDT) Glucose Lvl 80 65 - 199 mg/dL [facility] Comment:Diabetes: >=200 mg/d L plus symptoms BUN 4(L) 8 - 18 mg/dL [facility] Creatinine 0.26(L) 0.70 - 1.20 mg/dL [facility] Sodium 138 135 - 145 mmol/L [facility] Potassium 3.6 3.5 - 5.0 mmol/L [facility] Comment: Please note: ??Patients with WBC >100,000 may have falsely elevated Potassium levels. ??For accurate Potassium quantification in these patients send serum separator tube (gold top) for subsequent determinations. ??Contact the Clinical Chemistry Laboratory if there are any questions. Chloride 104 98 - 107 mmol/L [facility] CO2 Not Perf 22 - 31 [facility] Comment:Add-on request. Samp le too old to perform test. Anion Gap Unable to Calculate 5 - 15 mmol/L [facility] Calcium 8.6 8.5 - 10.5 mg/dL [facility] Estimated GFR 152 >=60 mL/min/1 .73 m?? [facility] Comment: This patient's estimated GFR [...] MD CHEMISTRY ORDERABLE S Performing Organization Address [facility] Co de Phone Number [facility] [place] [address] * Lavender Tube HOLD (07/06/2022 6:21 AM EDT) [facility] Signature Lavender Hold Sample in lab. [facility] Blood Venous Draw / Unknown 07/06/2022 6:21 AM EDT 07/06/2022 6:28 AM EDT Hollie Perez MD HEMATOLOGY ORDERABL ES Performing Organization Address [facility] Co de Phone Number [facility] [place] [address] * (ABNORMAL) Hepatic Function Panel (07/06/2022 6:21 AM EDT) Total Protein 6.7 6.1 - 8.0 g/dL [facility] Albumin 3.2 3.2 - 5.2 g/dL [facility] AST 25 0 - 30 unit/L [facility] ALT 57(H) 0 - 30 unit/L [facility] Alk Phos 199(H) 35 - 105 unit/L [facility] Total Bilirubin 0.3 0.2 - 1.3 mg/dL [facility] Bili, Direct 0.1 0.0 - 0.3 mg/dL [facility] Blood 07/06/2022 6:21 AM EDT 07/06/2022 6:27 AM EDT Narrative Resulting Agency Comment Spec In Lab Hollie Perez MD CHEMISTRY ORDERABLE S Performing Organization Address [facility] Co de Phone Number [facility] [place] [address] * Blood culture (07/06/2022 6:21 AM EDT) Blood Culture No growth at 5 days. [facility] Blood 07/06/2022 6:21 AM EDT 07/06/2022 11:05 AM EDT Comment:R Hand Narrative Resulting Agency Comment Spec In Lab Hollie Perez MD MICROBIOLOGY - BLOO D ORDERABLES Performing Organization Address [facility] de Phone Number [facility] [place] [address] * CT Abdomen & Pelvis w Contrast [...] have questions please contact the health director career services that requested your imaging first. ? Electronically signed by: Nathalie Whitaker MD, [facility] ([phone]), at 07/05/2022 5:38 PM Narrative 07/05/2022 5:38 [...] administration of contrast. Administered 66.0 ml of ORKNBIHSA654.00 mg/ml. Oral contrast administered. COMPARISON: CT lumbar [...] who have questions please contactthe health director career services that requested your imaging first. Hollie Perez MD IMG CT ORDERABLES * Scan, Peripheral Blood (07/05/2022 5:31 AM EST) [facility] Plat Estimate Normal [facility] RBC Morphology Abnormal [facility] Hypochromia Slight [facility] Blood 07/05/2022 5:31 AM EST 07/05/2022 5:43 AM EST Narrative Resulting Agency Comment Spec In Lab Ian Duarte MD HEMATOLOGY ORDArthur SALDANA Performing Organization Address City/[facility]/ZIP Co de Phone Number [facility] [place] [address] * Bilirubin, Direct (07/05/2022 5:31 AM EST) [facility] Bili, Direct 0.1 0.0 - 0.3 mg/dL [facility] Blood 07/05/2022 5:31 AM EST 07/05/2022 5:43 AM EST Narrative Resulting Agency Comment Spec In Lab Hollie Perez MD CHEMISTRY ORDERABLE S Performing Organization Address City/[facility]/ZIP Co de Phone Number [facility] [place] [address] * (ABNORMAL) Differential, Automated (07/05/2022 5:31 AM EST) Neutrophils % 41.2 % [facility] Neutr Abs (ANC) 1.39(L) 1.70 - 6.10 x10(3)/[facility] Lymphocytes % 45.4 % [facility] Lymphocytes Abs 1.5 0.9 - 3.2 x10(3)/[facility] Monocytes % 11.6 % [facility] Monocyte Abs 0.4 0.3 - 0.9 x10(3)/[facility] Eosinophils % 0.6 % [facility] Eosinophils Abs 0.0 0.0 - 0.4 x10(3)/[facility] Basophils % 0.6 % [facility] Basophils Abs 0.0 0.0 - 0.1 x10(3)/[facility] Immature Gran % 0.60 % [facility] Comment: Immature granulocytes(IG's)percentage and absolute count will include metamyelocytes, myelocytes, and promyelocytes. Blood smears from CBCs yielding IG's will be scanned manually for concordance. If this scan disagrees with the automated IG or if promyelocytes are noted, a manual differential will be performed. Debora Gran Abs 0.02 0.00 - 0.04 x10(3)/[facility] Blood 07/05/2022 5:31 AM EST 07/05/2022 5:43 AM EST Narrative Resulting Agency Comment Spec In Lab Ian Duarte MD HEMATOLOGY CLEO SALDANA [facility] [place] [address] * (ABNORMAL) Hemogram (07/05/2022 5:31 AM EST) WBC 3.4(L) 4.0 - 9.5 x10(3)/[facility] RBC 3.20(L) 4.00 - 5.21 x10(6)/[facility] Hemoglobin 7.7(L) 11.7 - 15.5 g/dL [facility] Hematocrit 25.4(L) 35.7 - 45.8 % [facility] MCV 79.4(L) 82.6 - 94.4 [facility] MCH 24.1(L) 27.1 - 32.0 pg [facility] MCHC 30.3(L) 31.7 - 35.0 g/dL [facility] Platelets 240 145 - 357 x10(3)/[facility] RDWSD 56.9(H) 37.0 - 46.0 [facility] RDWCV 19.7(H) 11.5 - 14.1 % [facility] MPV 9.5 7.6 - 12.9 [facility] nRBC % Auto 0.0 % [facility] nRBC Abs Auto 0.000 0.000 - 0.000 x10(3)/[facility] Blood 07/05/2022 5:31 AM EST 07/05/2022 5:43 AM EST Narrative Resulting Agency Comment Spec In Lab Ian Duarte MD HEMATOLOGY CLEO SALDANA [facility] [place] [address] * (ABNORMAL) Comprehensive metabolic panel (non-fasting) (07/05/2022 5:31 AM EST) Glucose Lvl 85 65 - 199 mg/dL [facility] Comment:Diabetes: >=200 mg/d L plus symptoms BUN 6(L) 8 - 18 mg/dL [facility] Creatinine 0.29(L) 0.70 - 1.20 mg/dL [facility] Sodium 142 135 - 145 mmol/L [facility] Potassium 3.8 3.5 - 5.0 mmol/L [facility] Comment: Please note: ??Patients with WBC >100,000 may have falsely elevated Potassium levels. ??For accurate Potassium quantification in these patients send serum separator tube (gold top) for subsequent determinations. ??Contact the Clinical Chemistry Laboratory if there are any questions. Chloride 108(H) 98 - 107 mmol/L [facility] CO2 25 22 - 31 mmol/L [facility] Anion Gap 9 5 - 15 mmol/L [facility] Calcium 8.4(L) 8.5 - 10.5 mg/dL [facility] Total Protein 5.9(L) 6.1 - 8.0 g/dL [facility] Albumin 3.1(L) 3.2 - 5.2 g/dL [facility] AST 39(H) 0 - 30 unit/L [facility] ALT 74(H) 0 - 30 unit/L [facility] Alk Phos 209(H) 35 - 105 unit/L [facility] Total Bilirubin 0.4 0.2 - 1.3 mg/dL [facility] Estimated GFR 148 >=60 mL/min/1. 73 m?? [facility] Comment: This patient's estimated GFR [...] Lab Ian Duarte MD CHEMISTRY ORDER MYRANDA [facility] [place] [address] * IR All Drainage Procedures (07/04/2022 4:14 PM EST) Anatomical Region Laterality Modality X-Ray Angiograph y Narrative 07/04/2022 4:52 PM EST Preoperative Diagnosis: re accumulated Lumbar collection by CT, Fevers Postoperative Diagnosis: ?? Same Procedure Performed: Ultrasound and fluoroscopically guided drain placement. Operators: Mich Martino MD, Attending Estimated Blood Loss: Negligible. Fluoroscopy dose: ??Please see [facility] IR technologist record for procedural dose/time. Cefazolin/ [...] dilated over the wire and a 8.5 Malagasy drain was advanced over the wire into [...] performed the entire procedure. Ian Duarte MD IM IR ORDERABL ES * (ABNORMAL) Differential, Automated (07/04/2022 6:07 AM EST) Neutrophils % 81.6 % [facility] Neutr Abs (ANC) 6.79(H) 1.70 - 6.10 x10(3)/[facility] Lymphocytes % 11.8 % [facility] Lymphocytes Abs 1.0 0.9 - 3.2 x10(3)/[facility] Monocytes % 6.3 % [facility] Monocyte Abs 0.5 0.3 - 0.9 x10(3)/[facility] Eosinophils % 0.0 % [facility] Eosinophils Abs 0.0 0.0 - 0.4 x10(3)/[facility] Basophils % 0.1 % [facility] Basophils Abs 0.0 0.0 - 0.1 x10(3)/[facility] Immature Gran % 0.20 % [facility] Comment: Immature granulocytes(IG's)percentage and absolute count will include metamyelocytes, myelocytes, and promyelocytes. Blood smears from CBCs yielding IG's will be scanned manually for concordance. If this scan disagrees with the automated IG or if promyelocytes are noted, a manual differential will be performed. Debora Gran Abs 0.02 0.00 - 0.04 x10(3)/[facility] Blood 07/04/2022 6:07 AM EST 07/04/2022 6:14 AM EST Narrative Resulting Agency Comment Spec In Lab Ian Duarte MD HEMATOLOGY ORDArthur SALDANA Performing Organization Address City/[facility]/ZIP Co de Phone Number [facility] [place] [address] * (ABNORMAL) Hemogram (07/04/2022 6:07 AM EST) WBC 8.3 4.0 - 9.5 x10(3)/[facility] RBC 3.38(L) 4.00 - 5.21 x10(6)/[facility] Hemoglobin 8.3(L) 11.7 - 15.5 g/dL [facility] Hematocrit 26.0(L) 35.7 - 45.8 % [facility] MCV 76.9(L) 82.6 - 94.4 fL [facility] MCH 24.6(L) 27.1 - 32.0 pg [facility] MCHC 31.9 31.7 - 35.0 g/dL [facility] Platelets 244 145 - 357 x10(3)/[facility] RDWSD 54.5(H) 37.0 - 46.0 fL [facility] RDWCV 19.5(H) 11.5 - 14.1 % [facility] MPV 9.3 7.6 - 12.9 fL [facility] nRBC % Auto 0.0 % [facility] nRBC Abs Auto 0.000 0.000 - 0.000 x10(3)/[facility] Blood 07/04/2022 6:07 AM EST 07/04/2022 6:14 AM EST Narrative Resulting Agency Comment Spec In Lab Ian Duarte MD HEMATOLOGY ORDArthur SALDANA Performing Organization Address City/[facility]/ZIP Co de Phone Number [facility] [place] [address] * Lactate, whole blood, send to lab ([facility]) (07/04/2022 6:07 AM EST) Lactate WB 1.9 0.5 - 2.2 mmol/L [facility] Blood 07/04/2022 6:07 AM EST 07/04/2022 6:14 AM EST Narrative Resulting Agency Comment Spec In Lab Yury Saavedra MD CHEMISTRY ORDERABLE S [facility] [place] [address] * (ABNORMAL) Basic Metabolic Panel (non-fasting) (07/04/2022 6:07 AM EST) Glucose Lvl 114 65 - 199 mg/dL [facility] Comment:Diabetes: >=200 mg/d L plus symptoms BUN 8 8 - 18 mg/dL [facility] Creatinine 0.34(L) 0.70 - 1.20 mg/dL [facility] Sodium 134(L) 135 - 145 mmol/L [facility] Potassium 4.1 3.5 - 5.0 mmol/L [facility] Comment: Please note: ??Patients with WBC >100,000 may have falsely elevated Potassium levels. ??For accurate Potassium quantification in these patients send serum separator tube (gold top) for subsequent determinations. ??Contact the Clinical Chemistry Laboratory if there are any questions. Chloride 100 98 - 107 mmol/L [facility] CO2 24 22 - 31 mmol/L [facility] Anion Gap 10 5 - 15 mmol/L [facility] Calcium 8.4(L) 8.5 - 10.5 mg/dL [facility] Estimated GFR 143 >=60 mL/min/1. 73 m?? [facility] Comment: This patient's estimated GFR [...] MD CHEMISTRY ORDER MYRANDA Performing Organization Address [facility] Co de Phone Number [facility] [place] [address] * (ABNORMAL) Urinalysis Microscopic Exam (07/04/2022 3:05 AM EST) RBC UA 2 0 - 4 /HPF [facility] WBC UA 2 0 - 5 /HPF [facility] Squam Epith UA 6(H) <=4 /HPF [facility] TriPhos Adina UA Occasional (A) None /HPF [facility] Clean Catch Urine 07/04/2022 3:05 AM EST 07/04/2022 3:10 AM EST Narrative Resulting Agency Comment Spec In Lab Yury Saavedra MD URINE ORDERABLES Performing Organization Address [facility] Co de Phone Number [facility] [place] [address] * (ABNORMAL) Urinalysis with reflex Culture (07/04/2022 3:05 AM EST) Glucose UA Negative Negative mg/dL [facility] Protein UA 30(A) Negative mg/dL [facility] Bilirubin UA Negative Negative mg/dL [facility] Comment: Clinical correlation required for positive Urine Bilirubin results as false positive may occur with some drugs and drug related products. If a false positive is suspected a serum total bilirubin should be considered if clinically indicated. Urobilinogen UA Normal Normal mg/dL [facility] pH UA 8.0 5.0 - 8.0 [facility] Blood UA Negative Negative mg/dL [facility] Ketones UA Negative Negative mg/dL [facility] Nitrite UA Negative Negative [facility] Leukocytes UA Trace(A) Negative [facility] Appearance UA Cloudy(A) Clear [facility] Spec Alvin UA >=1.030(A) 1.005 - 1.030 [facility] Color UA Dark Yellow Yellow [facility] Culture Reflexed No [facility] Clean Catch Urine 07/04/2022 3:05 AM EST 07/04/2022 3:10 AM EST Narrative Resulting Agency Comment Spec In Lab Yury Saavedra MD URINE ORDERABLES Performing Organization Address [facility] Co de Phone Number [facility] [place] [address] * (ABNORMAL) Lactate, whole blood, send to lab ([facility]) (07/04/2022 12:50 AM EST) [facility] Lactate WB 2.6(H) 0.5 - 2.2 mmol/L [facility] Blood 07/04/2022 12:5 0 AM EST 07/04/2022 1:02 AM EST Narrative Resulting Agency Comment Spec In Lab Yury Saavedra MD CHEMISTRY ORDERABLE S Performing Organization Address City/[facility]/ZIP Co de Phone Number [facility] [place] [address] * EKG 12 Lead (07/04/2022 12:16 AM EST) Ventricular rate 152 BPM MUSE SYSTEM Atrial Rate 152 BPM MUSE SYSTEM P-R Interval 112 ms MUSE SYSTEM QRS Duration 66 ms MUSE SYSTEM Q-T Interval 328 ms MUSE SYSTEM QTC Calculated (Bezet) 521 ms MUSE SYSTEM Calculated P [place] 13 degrees MUSE SYSTEM Calculated R [place] 7 degrees MUSE SYSTEM Calculated T [place] 54 degrees MUSE SYSTEM INTERPRETATION Sinus tachycardia Nonspecific T wave abnormality Abnormal ECG When compared with ECG of 01-JUL-2022 14:17, No significant change was found I personally reviewed the tracing and edited the fellows interpretation Confirmed by fellow Ravinder Garcia ([id number]) on 07/07/2022 4:08:27 AM Confirmed by MD BEN, GLADYS ([id number]) on 07/07/2022 10:33:36 AM MUSE SYSTEM 07/04/2022 12:1 6 AM EST 07/07/2022 10:33 AM EDT Yury Saavedra MD ECG ORDERABLES Performing Organization Address City/[facility]/ZIP Co de Phone Number MUSE SYSTEM * Lavender Tube HOLD (07/03/2022 11:05 PM EST) Lavender Hold Sample in lab. [facility] Blood Venous Draw / Unknown 07/03/2022 11:05 PM EST 07/03/2022 11:14 PM EST Yury Saavedra MD HEMATOLOGY ORDERABL ES Performing Organization Address City/[facility]/ZIP Co de Phone Number [facility] [place] [address] * (ABNORMAL) CRP, acute inflammation (07/03/2022 11:05 PM EST) CRP 73.7(H) <=4.9 mg/L [facility] Blood 07/03/2022 11:0 5 PM EST 07/03/2022 11:14 PM EST Narrative Resulting Agency Comment Spec In Lab Yury Saavedra MD CHEMISTRY ORDERABLE S Performing Organization Address [facility]/ZIP Co de Phone Number [facility] [place] [address] * (ABNORMAL) Blood culture (07/03/2022 11:05 PM EST) Blood Culture Escherichia coli detected by PCR Isolate saved. If future testing is required, contact the Microbiology Residence Director. (A) [facility] Gram Stain Anaerobic Growth detected in anaerobic bottle. Gram Negative Rods seen Results called to and read back by Zoila Rincon RN (A) [facility] Organism Escherichia coli(A) [facility] Organism Gram Negative Rods(A) [facility] Blood STRUCTURE OF RIGHT HAND [...] Saavedra MD MICROBIOLOGY - BLOO D ORDERABLES [facility] [place] [address] * Blood culture (07/03/2022 10:45 PM EST) Blood Culture No growth at 5 days. [facility] Blood STRUCTURE OF LEFT HAND / Unknown 07/03/2022 10:45 PM EST 07/04/2022 Narrative Resulting Agency Comment Spec In Lab Yury Saavedra MD MICROBIOLOGY - BLOO D ORDERABLES [facility] [place] [address] * CT Lumbar Spine w Contrast (07/03/2022 [...] have questions please contact the health director career services that requested your imaging first. ? Narrative [...] who have questions please contactthe health director career services that requested your imaging first. Ian Duarte MD IMG CT ORDERABL ES * (ABNORMAL) Differential, Automated (07/03/2022 10:08 AM EST) Neutrophils % 50.0 % [facility] Neutr Abs (ANC) 1.61(L) 1.70 - 6.10 x10(3)/ L [facility] Lymphocytes % 37.0 % [facility] Lymphocytes Abs 1.2 0.9 - 3.2 x10(3)/[facility] Monocytes % 10.9 % [facility] Monocyte Abs 0.4 0.3 - 0.9 x10(3)/ L [facility] Eosinophils % 0.9 % [facility] Eosinophils Abs 0.0 0.0 - 0.4 x10(3)/[facility] Basophils % 0.9 % [facility] Basophils Abs 0.0 0.0 - 0.1 x10(3)/[facility] Immature Gran % 0.30 % [facility] Comment: Immature granulocytes(IG's)percentage and absolute count will include metamyelocytes, myelocytes, and promyelocytes. Blood smears from CBCs yielding IG's will be scanned manually for concordance. If this scan disagrees with the automated IG or if promyelocytes are noted, a manual differential will be performed. Debora Gran Abs 0.01 0.00 - 0.04 x10(3)/ L [facility] Blood 07/03/2022 10:0 8 AM EST 07/03/2022 10:19 AM EST Narrative Resulting Agency Comment Spec In Lab Ian Duarte MD HEMATOLOGY CLEO SALDANA [facility] [place] [address] * (ABNORMAL) Hemogram (07/03/2022 10:08 AM EST) WBC 3.2(L) 4.0 - 9.5 x10(3)/[facility] RBC 4.08 4.00 - 5.21 x10(6)/[facility] Hemoglobin 9.9(L) 11.7 - 15.5 g/dL [facility] Hematocrit 32.2(L) 35.7 - 45.8 % [facility] MCV 78.9(L) 82.6 - 94.4 fL [facility] MCH 24.3(L) 27.1 - 32.0 pg [facility] MCHC 30.7(L) 31.7 - 35.0 g/dL [facility] Platelets 307 145 - 357 x10(3)/[facility] RDWSD 53.3(H) 37.0 - 46.0 [facility] RDWCV 19.0(H) 11.5 - 14.1 % [facility] MPV 9.2 7.6 - 12.9 [facility] nRBC % Auto 0.0 % [facility] nRBC Abs Auto 0.000 0.000 - 0.000 x10(3)/[facility] Blood 07/03/2022 10:0 8 AM EST 07/03/2022 10:19 AM EST Narrative Resulting Agency Comment Spec In Lab Ian Duarte MD HEMATOLOGY CLEO SALDANA [facility] [place] [address] * (ABNORMAL) Sedimentation rate (07/03/2022 10:08 AM EST) Sed Rate 110(H) 2 - 37 mm/hr [facility] Comment: Effective April 06, 2019 new capillary photometric technology has resulted in a change in reference ranges. It is recommended that each ESR result be reviewed with its own age appropriate reference range. Blood 07/03/2022 10:0 8 AM EST 07/03/2022 10:19 AM EST Narrative Resulting Agency Comment Spec In Lab Ian Duarte MD HEMATOLOGY CLEO SALDANA [facility] [place] [address] * XR Chest One View (07/02/2022 5:04 [...] have questions please contact the health director career services that requested your imaging first. ? Narrative [...] who have questions please contactthe health director career services that requested your imaging first. Ian Duarte MD IMG DX ORDERABL ES * (ABNORMAL) Urinalysis Microscopic Exam (07/02/2022 3:35 PM EST) RBC UA 7(H) 0 - 4 /HPF [facility] WBC UA 3 0 - 5 /HPF [facility] Squam Epith UA 4 <=4 /HPF [facility] Hyaline Cast UA 3(H) 0 - 2 /LPF [facility] Straight Catheter Urine 07/02/2022 3:35 PM EST 07/02/2022 4:10 PM EST Narrative Resulting Agency Comment Spec In Lab Ian Duarte MD URINE ORDERABLE S [facility] [place] [address] * (ABNORMAL) Urinalysis with reflex Culture (07/02/2022 3:35 PM EST) Glucose UA Negative Negative mg/dL [facility] Protein UA Negative Negative mg/dL [facility] Bilirubin UA Negative Negative mg/dL [facility] Comment: Clinical correlation required for positive Urine Bilirubin results as false positive may occur with some drugs and drug related products. If a false positive is suspected a serum total bilirubin should be considered if clinically indicated. Urobilinogen UA Normal Normal mg/dL [facility] pH UA 7.5 5.0 - 8.0 [facility] Blood UA Trace(A) Negative mg/dL [facility] Ketones UA Negative Negative mg/dL [facility] Nitrite UA Negative Negative [facility] Leukocytes UA Negative Negative [facility] Appearance UA Clear Clear [facility] Spec Alvin UA 1.016 1.005 - 1.030 [facility] Color UA Yellow Yellow [facility] Culture Reflexed No [facility] Straight Catheter Urine 07/02/2022 3:35 PM EST 07/02/2022 4:10 PM EST Narrative Resulting Agency Comment Spec In Lab Ian Duarte MD URINE ORDERABLE S [facility] [place] [address] * Differential, Automated (07/02/2022 6:15 AM EST) Neutrophils % 57.6 % [facility] Neutr Abs (ANC) 1.89 1.70 - 6.10 x10(3)/[facility] Lymphocytes % 32.3 % [facility] Lymphocytes Abs 1.1 0.9 - 3.2 x10(3)/[facility] Monocytes % 9.5 % [facility] Monocyte Abs 0.3 0.3 - 0.9 x10(3)/[facility] Eosinophils % 0.0 % [facility] Eosinophils Abs 0.0 0.0 - 0.4 x10(3)/[facility] Basophils % 0.3 % [facility] Basophils Abs 0.0 0.0 - 0.1 x10(3)/[facility] Immature Gran % 0.30 % [facility] Comment: Immature granulocytes(IG's)percentage and absolute count will include metamyelocytes, myelocytes, and promyelocytes. Blood smears from CBCs yielding IG's will be scanned manually for concordance. If this scan disagrees with the automated IG or if promyelocytes are noted, a manual differential will be performed. Debora Gran Abs 0.01 0.00 - 0.04 x10(3)/[facility] Blood 07/02/2022 6:15 AM EST 07/02/2022 6:49 AM EST Narrative Resulting Agency Comment Spec In Lab Ian Duarte MD HEMATOLOGY CLEO SALDANA [facility] Organization Address City/State/ZIP Co de Phone Number [facility] [place] [address] * (ABNORMAL) Hemogram (07/02/2022 6:15 AM EST) WBC 3.3(L) 4.0 - 9.5 x10(3)/[facility] RBC 3.98(L) 4.00 - 5.21 x10(6)/[facility] Hemoglobin 9.6(L) 11.7 - 15.5 g/dL [facility] Hematocrit 30.7(L) 35.7 - 45.8 % [facility] MCV 77.1(L) 82.6 - 94.4 fL [facility] MCH 24.1(L) 27.1 - 32.0 pg [facility] MCHC 31.3(L) 31.7 - 35.0 g/dL [facility] Platelets 336 145 - 357 x10(3)/[facility] RDWSD 51.1(H) 37.0 - 46.0 [facility] RDWCV 18.6(H) 11.5 - 14.1 % [facility] MPV 9.1 7.6 - 12.9 [facility] nRBC % Auto 0.0 % [facility] nRBC Abs Auto 0.000 0.000 - 0.000 x10(3)/[facility] Blood 07/02/2022 6:15 AM EST 07/02/2022 6:49 AM EST Narrative Resulting Agency Comment Spec In Lab Ian Duarte MD HEMATOLOGY ORDE LES Performing Organization Address [facility]/ZIP Co de Phone Number [facility] [place] [address] * TSH Dickinson (07/02/2022 6:15 AM EST) Pathologist [facility] TSH 1.45 0.27 - 4.20 mcIU/mL [facility] Comment: Reference Interval (mcIU/mL): Females: ??First Trimester: 0.23-3.88 ??Second Trimester: 0.22-3.90 ??Third Trimester: 0.44-4.66 Blood 07/02/2022 6:15 AM EST 07/02/2022 6:49 AM EST Narrative Resulting Agency Comment Spec In Lab Ian Duarte MD CHEMISTRY ORDER MYRANDA Performing Organization Address City/[facility]/ZIP Co de Phone Number [facility] [place] [address] * (ABNORMAL) Basic Metabolic Panel (non-fasting) (07/02/2022 6:15 AM EST) Glucose Lvl 91 65 - 199 mg/dL [facility] Comment:Diabetes: >=200 mg/d L plus symptoms BUN 5(L) 8 - 18 mg/dL [facility] Creatinine 0.24(L) 0.70 - 1.20 mg/dL [facility] Sodium 134(L) 135 - 145 mmol/L [facility] Potassium 4.0 3.5 - 5.0 mmol/L [facility] Comment: Please note: ??Patients with WBC >100,000 may have falsely elevated Potassium levels. ??For accurate Potassium quantification in these patients send serum separator tube (gold top) for subsequent determinations. ??Contact the Clinical Chemistry Laboratory if there are any questions. Chloride 100 98 - 107 mmol/L [facility] CO2 24 22 - 31 mmol/L [facility] Anion Gap 10 5 - 15 mmol/L [facility] Calcium 8.7 8.5 - 10.5 mg/dL [facility] Estimated GFR 155 >=60 mL/min/1. 73 m?? [facility] Comment: This patient's estimated GFR [...] Lab Ian Duarte MD CHEMISTRY ORDER MYRANDA [facility] [place] [address] * (ABNORMAL) Sedimentation rate (07/02/2022 6:15 AM EST) Sed Rate 89(H) 2 - 37 mm/hr [facility] Comment: Effective April 06, 2019 new capillary photometric technology has resulted in a change in reference ranges. It is recommended that each ESR result be reviewed with its own age appropriate reference range. Blood 07/02/2022 6:15 AM EST 07/02/2022 6:49 AM EST Narrative Resulting Agency Comment Spec In Lab Ian Duarte MD HEMATOLOGY ORDE RABJOE [facility] [place] [address] * Blood culture (07/01/2022 8:21 PM EST) [facility] Blood Culture No growth at 5 days. [facility] Blood 07/01/2022 8:21 PM EST 07/01/2022 8:57 PM EST Comment:RH Narrative Resulting Agency Comment Spec In Lab Ian Duarte MD MICROBIOLOGY - BLOOD ORDERABLES Performing Organization Address [facility]/ZIP Co de Phone Number [facility] [place] [address] * Magnesium (07/01/2022 6:14 PM EST) [facility] Magnesium 0.74 0.69 - 1.07 mmol/L [facility] Blood 07/01/2022 6:14 PM EST 07/01/2022 6:21 PM EST Narrative Resulting Agency Comment Spec In Lab Ian Duarte MD CHEMISTRY ORDER MYRANDA Performing Organization Address [facility] Co de Phone Number [facility] [place] [address] * Lactate, whole blood, send to lab ([facility]) (07/01/2022 6:14 PM EST) [facility] Lactate WB 1.7 0.5 - 2.2 mmol/L [facility] Blood 07/01/2022 6:14 PM EST 07/01/2022 6:21 PM EST Narrative Resulting Agency Comment Spec In Lab Ian Duarte MD CHEMISTRY ORDER MYRANDA [facility] [place] [address] * IR Drain Check/Change/Remove (07/01/2022 3:35 PM [...] sterile barrier technique was used throughout. ?? Sticker On fluoroscopic images were obtained. ??Contrast was injected [...] (Bezet) 443 ms MUSE SYSTEM Calculated P [place] 37 degrees MUSE SYSTEM Calculated R [place] 62 degrees MUSE SYSTEM Calculated T [place] 19 degrees MUSE SYSTEM INTERPRETATION Sinus tachycardia Nonspecific T wave abnormality Otherwise normal ECG When compared with ECG of 29-JUN-2022 08:55, No significant change was found Confirmed by Lyndon Lafleur ([id number]) on 07/02/2022 5:10:53 PM MUSE SYSTEM 07/01/2022 2:17 PM EST 07/02/2022 5:10 PM EST Ian Duarte MD ECG ORDERABLES MUSE SYSTEM * Differential, Automated (07/01/2022 5:50 AM EST) Neutrophils % 75.5 % [facility] Neutr Abs (ANC) 4.41 1.70 - 6.10 x10(3)/mcL [facility] Lymphocytes % 15.0 % [facility] Lymphocytes Abs 0.9 0.9 - 3.2 x10(3)/[facility] Monocytes % 7.7 % [facility] Monocyte Abs 0.4 0.3 - 0.9 x10(3)/[facility] Eosinophils % 1.0 % [facility] Eosinophils Abs 0.1 0.0 - 0.4 x10(3)/[facility] Basophils % 0.5 % [facility] Basophils Abs 0.0 0.0 - 0.1 x10(3)/[facility] Immature Gran % 0.30 % [facility] Comment: Immature granulocytes(IG's)percentage and absolute count will include metamyelocytes, myelocytes, and promyelocytes. Blood smears from CBCs yielding IG's will be scanned manually for concordance. If this scan disagrees with the automated IG or if promyelocytes are noted, a manual differential will be performed. Debora Gran Abs 0.02 0.00 - 0.04 x10(3)/[facility] Blood 07/01/2022 5:50 AM EST 07/01/2022 6:17 AM EST Narrative Resulting Agency Comment Spec In Lab Estevan Alfaro MD HEMATOLOGY ORDERABLE S [facility] [place] [address] * (ABNORMAL) Hemogram (07/01/2022 5:50 AM EST) WBC 5.8 4.0 - 9.5 x10(3)/[facility] RBC 3.84(L) 4.00 - 5.21 x10(6)/[facility] Hemoglobin 9.3(L) 11.7 - 15.5 g/dL [facility] Hematocrit 29.6(L) 35.7 - 45.8 % [facility] MCV 77.1(L) 82.6 - 94.4 fL [facility] MCH 24.2(L) 27.1 - 32.0 pg [facility] MCHC 31.4(L) 31.7 - 35.0 g/dL [facility] Platelets 352 145 - 357 x10(3)/[facility] RDWSD 51.2(H) 37.0 - 46.0 fL [facility] RDWCV 18.6(H) 11.5 - 14.1 % [facility] MPV 9.3 7.6 - 12.9 fL [facility] nRBC % Auto 0.0 % [facility] nRBC Abs Auto 0.000 0.000 - 0.000 x10(3)/[facility] Blood 07/01/2022 5:50 AM EST 07/01/2022 6:17 AM EST Narrative Resulting Agency Comment Spec In Lab Estevan Alfaro MD HEMATOLOGY ORDERABLE S [facility] [place] [address] * (ABNORMAL) CRP, acute inflammation (07/01/2022 5:50 AM EST) Pathologist [facility] CRP 53.1(H) <=4.9 mg/L [facility] Comment:result rechecked-KS Blood 07/01/2022 5:50 AM EST 07/01/2022 6:17 AM EST Narrative Resulting Agency Comment Spec In Lab Ian Duarte MD CHEMISTRY ORDER MYRANDA [facility] [place] [address] * (ABNORMAL) Sedimentation rate (07/01/2022 5:50 AM EST) Pathologist [facility] Sed Rate >119(H) 2 - 37 mm/hr [facility] Comment: Effective April 06, 2019 new capillary photometric technology has resulted in a change in reference ranges. It is recommended that each ESR result be reviewed with its own age appropriate reference range. Blood 07/01/2022 5:50 AM EST 07/01/2022 6:17 AM EST Narrative Resulting Agency Comment Spec In Lab Ian Duarte MD HEMATOLOGY CLEO SALDANA [facility] [place] [address] * (ABNORMAL) BMP w/fasting Glucose (07/01/2022 5:50 AM EST) Glucose Fasting 95 65 - 99 mg/dL [facility] Comment: ?Fasting* Glucose Interpretive Criteria [...] of Diabetes Mellitus, Position Statement from the [employer]. ??Diabetes Care, Volume 33, Supplement 1, Apr 2009 BUN 10 8 - 18 mg/dL [facility] Creatinine 0.25(L) 0.70 - 1.20 mg/dL [facility] Sodium 138 135 - 145 mmol/L [facility] Potassium 4.1 3.5 - 5.0 mmol/L [facility] Comment: Please note: ??Patients with WBC >100,000 may have falsely elevated Potassium levels. ??For accurate Potassium quantification in these patients send serum separator tube (gold top) for subsequent determinations. ??Contact the Clinical Chemistry Laboratory if there are any questions. Chloride 103 98 - 107 mmol/L [facility] CO2 24 22 - 31 mmol/L [facility] Anion Gap 11 5 - 15 mmol/L [facility] Calcium 9.0 8.5 - 10.5 mg/dL [facility] Estimated GFR 154 >=60 mL/min/1. 73 m?? [facility] Comment: This patient's estimated GFR [...] In Lab Estevan Alfaro MD CHEMISTRY ORDERABLES [facility] [place] [id number] * Differential, Automated (06/30/2022 4:29 AM EST) Neutrophils % 57.6 % [facility] Neutr Abs (ANC) 3.68 1.70 - 6.10 x10(3)/[facility] Lymphocytes % 33.2 % [facility] Lymphocytes Abs 2.1 0.9 - 3.2 x10(3)/[facility] Monocytes % 7.0 % [facility] Monocyte Abs 0.4 0.3 - 0.9 x10(3)/[facility] Eosinophils % 1.4 % [facility] Eosinophils Abs 0.1 0.0 - 0.4 x10(3)/[facility] Basophils % 0.5 % [facility] Basophils Abs 0.0 0.0 - 0.1 x10(3)/[facility] Immature Gran % 0.30 % [facility] Comment: Immature granulocytes(IG's)percentage and absolute count will include metamyelocytes, myelocytes, and promyelocytes. Blood smears from CBCs yielding IG's will be scanned manually for concordance. If this scan disagrees with the automated IG or if promyelocytes are noted, a manual differential will be performed. Debora Gran Abs 0.02 0.00 - 0.04 x10(3)/[facility] Blood 06/30/2022 4:29 AM EST 06/30/2022 4:51 AM EST Narrative Resulting Agency Comment Spec In Lab Estevan Alfaro MD HEMATOLOGY ORDERABLE S Performing Organization Address City/State/[facility] Co de Phone Number [facility] [place] [address] * (ABNORMAL) Hemogram (06/30/2022 4:29 AM EST) WBC 6.4 4.0 - 9.5 x10(3)/[facility] RBC 3.96(L) 4.00 - 5.21 x10(6)/[facility] Hemoglobin 9.4(L) 11.7 - 15.5 g/dL [facility] Hematocrit 30.4(L) 35.7 - 45.8 % [facility] MCV 76.8(L) 82.6 - 94.4 fL [facility] MCH 23.7(L) 27.1 - 32.0 pg [facility] MCHC 30.9(L) 31.7 - 35.0 g/dL [facility] Platelets 349 145 - 357 x10(3)/[facility] RDWSD 50.4(H) 37.0 - 46.0 fL [facility] RDWCV 18.4(H) 11.5 - 14.1 % [facility] MPV 9.3 7.6 - 12.9 fL [facility] nRBC % Auto 0.0 % [facility] nRBC Abs Auto 0.000 0.000 - 0.000 x10(3)/mcL [facility] Blood 06/30/2022 4:29 AM EST 06/30/2022 4:51 AM EST Narrative Resulting Agency Comment Spec In Lab Estevan Alfaro MD HEMATOLOGY ORDERABLE S [facility] [place] [address] * (ABNORMAL) BMP w/fasting Glucose (06/30/2022 4:29 AM EST) Glucose Fasting 86 65 - 99 mg/dL [facility] Comment: ?Fasting* Glucose Interpretive Criteria [...] of Diabetes Mellitus, Position Statement from the [employer]. ??Diabetes Care, Volume 33, Supplement 1, Apr 2009 BUN 11 8 - 18 mg/dL [facility] Creatinine 0.22(L) 0.70 - 1.20 mg/dL [facility] Sodium 142 135 - 145 mmol/L [facility] Potassium 3.7 3.5 - 5.0 mmol/L [facility] Comment: Please note: ??Patients with WBC >100,000 may have falsely elevated Potassium levels. ??For accurate Potassium quantification in these patients send serum separator tube (gold top) for subsequent determinations. ??Contact the Clinical Chemistry Laboratory if there are any questions. Chloride 105 98 - 107 mmol/L [facility] CO2 25 22 - 31 mmol/L [facility] Anion Gap 12 5 - 15 mmol/L [facility] Calcium 8.9 8.5 - 10.5 mg/dL [facility] Estimated GFR 159 >=60 mL/min/1. 73 m?? [facility] Comment: This patient's estimated GFR [...] In Lab Estevan Alfaro MD CHEMISTRY ORDERABLES [facility] [place] [address] * EKG 12 Lead (06/29/2022 8:55 AM EST) Ventricular rate 112 BPM MUSE SYSTEM Atrial Rate 112 BPM MUSE SYSTEM P-R Interval 124 ms MUSE SYSTEM QRS Duration 78 ms MUSE SYSTEM Q-T Interval 336 ms MUSE SYSTEM QTC Calculated (Bezet) 458 ms MUSE SYSTEM Calculated P [place] 22 degrees MUSE SYSTEM Calculated R [place] 8 degrees MUSE SYSTEM Calculated T [place] 69 degrees MUSE SYSTEM INTERPRETATION Sinus tachycardia Nonspecific T wave abnormality Abnormal ECG When compared with ECG of 26-JUN-2022 20:46, Minimal criteria for Inferior infarct are no longer Present Nonspecific T wave abnormality, worse in Lateral leads Confirmed by MD Shabazz Danette ([id number]) on 06/29/2022 9:49:48 PM MUSE SYSTEM 06/29/2022 8:55 AM EST 06/29/2022 9:49 PM EST Estevan Alfaro MD ECG ORDERABLES Performing Organization Address City/[facility] Co de Phone Number MUSE SYSTEM * TSH (06/29/2022 5:58 AM EST) [facility] TSH 1.84 0.27 - 4.20 mcIU/mL [facility] Comment: Reference Interval (mcIU/mL): Females: ??First Trimester: 0.23-3.88 ??Second Trimester: 0.22-3.90 ??Third Trimester: 0.44-4.66 Blood Venous Draw / Unknown 06/29/2022 5:58 AM EST 06/29/2022 6:10 AM EST Narrative Resulting Agency Comment Spec In Lab Estevan Alfaro MD CHEMISTRY ORDERABLES Performing Organization Address City/[facility] Co de Phone Number [facility] [place] [address] * Magnesium (06/29/2022 5:58 AM EST) [facility] Magnesium 0.88 0.69 - 1.07 mmol/L [facility] Blood Venous Draw / Unknown 06/29/2022 5:58 AM EST 06/29/2022 6:10 AM EST Narrative Resulting Agency Comment Spec In Lab Estevan Alfaro MD CHEMISTRY ORDERABLES Performing Organization Address City/[facility] Co de Phone Number [facility] [place] [address] * Differential, Automated (06/29/2022 5:58 AM EST) [facility] Neutrophils % 61.0 % [facility] Neutr Abs (ANC) 3.44 1.70 - 6.10 x10(3)/[facility] Lymphocytes % 26.5 % [facility] Lymphocytes Abs 1.5 0.9 - 3.2 x10(3)/[facility] Monocytes % 9.0 % [facility] Monocyte Abs 0.5 0.3 - 0.9 x10(3)/[facility] Eosinophils % 2.1 % [facility] Eosinophils Abs 0.1 0.0 - 0.4 x10(3)/[facility] Basophils % 0.9 % [facility] Basophils Abs 0.0 0.0 - 0.1 x10(3)/[facility] Immature Gran % 0.50 % [facility] Comment: Immature granulocytes(IG's)percentage and absolute count will include metamyelocytes, myelocytes, and promyelocytes. Blood smears from CBCs yielding IG's will be scanned manually for concordance. If this scan disagrees with the automated IG or if promyelocytes are noted, a manual differential will be performed. Debora Gran Abs 0.03 0.00 - 0.04 x10(3)/[facility] Blood 06/29/2022 5:58 AM EST 06/29/2022 6:06 AM EST Narrative Resulting Agency Comment Spec In Lab Estevan Alfaro MD HEMATOLOGY ORDERABLE S [facility] [place] [address] * (ABNORMAL) Hemogram (06/29/2022 5:58 AM EST) WBC 5.6 4.0 - 9.5 x10(3)/[facility] RBC 4.11 4.00 - 5.21 x10(6)/[facility] Hemoglobin 9.8(L) 11.7 - 15.5 g/dL [facility] Hematocrit 31.7(L) 35.7 - 45.8 % [facility] MCV 77.1(L) 82.6 - 94.4 fL [facility] MCH 23.8(L) 27.1 - 32.0 pg [facility] MCHC 30.9(L) 31.7 - 35.0 g/dL [facility] Platelets 345 145 - 357 x10(3)/[facility] RDWSD 50.5(H) 37.0 - 46.0 fL [facility] RDWCV 18.3(H) 11.5 - 14.1 % [facility] MPV 9.2 7.6 - 12.9 fL [facility] nRBC % Auto 0.0 % [facility] nRBC Abs Auto 0.000 0.000 - 0.000 x10(3)/[facility] Blood 06/29/2022 5:58 AM EST 06/29/2022 6:06 AM EST Narrative Resulting Agency Comment Spec In Lab Estevan Alfaro MD HEMATOLOGY ORDERABLE S Performing Organization Address City/State/[facility] Co de Phone Number [facility] [place] [address] * (ABNORMAL) BMP w/fasting Glucose (06/29/2022 5:58 AM EST) Glucose Fasting 90 65 - 99 mg/dL [facility] Comment: ?Fasting* Glucose Interpretive Criteria [...] of Diabetes Mellitus, Position Statement from the [employer]. ??Diabetes Care, Volume 33, Supplement 1, Apr 2009 BUN 11 8 - 18 mg/dL [facility] Creatinine 0.25(L) 0.70 - 1.20 mg/dL [facility] Sodium 134(L) 135 - 145 mmol/L [facility] Potassium 4.1 3.5 - 5.0 mmol/L [facility] Comment: Please note: ??Patients with WBC >100,000 may have falsely elevated Potassium levels. ??For accurate Potassium quantification in these patients send serum separator tube (gold top) for subsequent determinations. ??Contact the Clinical Chemistry Laboratory if there are any questions. Chloride 102 98 - 107 mmol/L [facility] CO2 21(L) 22 - 31 mmol/L [facility] Anion Gap 11 5 - 15 mmol/L [facility] Calcium 9.0 8.5 - 10.5 mg/dL [facility] Estimated GFR 154 >=60 mL/min/1. 73 m?? [facility] Comment: This patient's estimated GFR [...] In Lab Estevan Alfaro MD CHEMISTRY ORDERABLES [facility] [place] [address] * (ABNORMAL) Respiratory Panel PCR (06/28/2022 2:58 PM EST) Resp Panel Source CLIENT SERVICE MANAGER Swab MA [facility] Resp Panel PCR Positive(A) Negative MAR [facility] Comment: Respiratory Panels are performed on the FilmArray, using multiplexed PCR nucleic acid detection. ??Negative results do not preclude respiratory infection and should not be used as the sole basis for diagnosis, treatment or other management decisions. Adenovirus Not Detected Not Detected [facility] Coronavirus HKU1 Not Detected Not Detected [facility] Coronavirus NL63 Not Detected Not Detected [facility] Coronavirus 229E Not Detected Not Detected [facility] Coronavirus OC43 Not Detected Not Detected [facility] SARS-CoV-2 Not Detected Not Detected [facility] Comment: Testing for SARS-CoV-2 (Severe acute respiratory syndrome coronavirus 2) to aid in the diagnosis of COVID-19 is performed using the BiooctoScopee Respiratory Panel 2.1 ([employer]) as authorized by the FDA issued Emergency Use Authorization (EUA). This panel also tests for multiple other viral and bacterial pathogens. This assay is intended for In-vitro Diagnostic (IVD) use with nasopharyngeal swabs in viral transport media. The assay is performed based on the instructions for use and additional guidance provided by the FDA. Testing is performed in laboratories within the [facility], each of which is certified under the [...] fact sheets at the following FDA website: https://www.fda.gov/medical-devices/qvdclmwqqgt-rbtgnmm-4377-xejie-34-zgntzsmgs- use-a odpoflofutwic-zqhktqn-odmzmuy/lugir-nqrekeqezgg-njfo Human Metapneumovirus Not Detected Not Detected [facility] Human Rhino/Enterovirus Not Detected Not Detected [facility] Influenza A Not Detected Not Detected [facility] Influenza B Not Detected Not Detected [facility] Parainfluenza 1 Not Detected Not Detected [facility] Parainfluenza 2 Not Detected Not Detected [facility] Parainfluenza 3 Detected(A) Not Detected [facility] Parainfluenza 4 Not Detected Not Detected [facility] Respiratory Syncytial Virus Not Detected Not Detected [facility] Chlamydophila pneumoniae Not Detected Not Detected [facility] Mycoplasma pneumoniae Not Detected Not Detected [facility] Nasopharyngeal Swab 06/29/19 2:58 PM EST 06/28/2022 4:24 PM EST Narrative Resulting Agency Comment Spec In Lab Estevan Alfaro MD MICROBIOLOGY - GENER AL ORDERABLES [facility] [place] [address] * Differential, Automated (06/28/2022 5:38 AM EST) Neutrophils % 54.1 % [facility] Neutr Abs (ANC) 3.04 1.70 - 6.10 x10(3)/mcL [facility] Lymphocytes % 34.3 % [facility] Lymphocytes Abs 1.9 0.9 - 3.2 x10(3)/[facility] Monocytes % 8.7 % [facility] Monocyte Abs 0.5 0.3 - 0.9 x10(3)/[facility] Eosinophils % 2.0 % [facility] Eosinophils Abs 0.1 0.0 - 0.4 x10(3)/[facility] Basophils % 0.5 % [facility] Basophils Abs 0.0 0.0 - 0.1 x10(3)/[facility] Immature Gran % 0.40 % [facility] Comment: Immature granulocytes(IG's)percentage and absolute count will include metamyelocytes, myelocytes, and promyelocytes. Blood smears from CBCs yielding IG's will be scanned manually for concordance. If this scan disagrees with the automated IG or if promyelocytes are noted, a manual differential will be performed. Debora Gran Abs 0.02 0.00 - 0.04 x10(3)/[facility] Blood 06/28/2022 5:38 AM EST 06/28/2022 5:54 AM EST Narrative Resulting Agency Comment Spec In Lab Anurag Call DO HEMATOLOGY ORDERABLE S [facility] [place] [address] * (ABNORMAL) Hemogram (06/28/2022 5:38 AM EST) WBC 5.6 4.0 - 9.5 x10(3)/[facility] RBC 4.08 4.00 - 5.21 x10(6)/[facility] Hemoglobin 9.9(L) 11.7 - 15.5 g/dL [facility] Hematocrit 31.6(L) 35.7 - 45.8 % [facility] MCV 77.5(L) 82.6 - 94.4 fL [facility] MCH 24.3(L) 27.1 - 32.0 pg [facility] MCHC 31.3(L) 31.7 - 35.0 g/dL [facility] Platelets 371(H) 145 - 357 x10(3)/[facility] RDWSD 50.5(H) 37.0 - 46.0 fL [facility] RDWCV 18.2(H) 11.5 - 14.1 % [facility] MPV 9.3 7.6 - 12.9 fL [facility] nRBC % Auto 0.0 % [facility] nRBC Abs Auto 0.000 0.000 - 0.000 x10(3)/[facility] Blood 06/28/2022 5:38 AM EST 06/28/2022 5:54 AM EST Narrative Resulting Agency Comment Spec In Lab Anurag Call DO HEMATOLOGY ORDERABLE S Performing Organization Address City/[facility] Co de Phone Number [facility] [place] [address] * Magnesium (06/28/2022 5:38 AM EST) Magnesium 0.78 0.69 - 1.07 mmol/L [facility] Blood 06/28/2022 5:38 AM EST 06/28/2022 5:54 AM EST Narrative Resulting Agency Comment Spec In Lab Anurag Call DO CHEMISTRY ORDERABLES Performing Organization Address [facility]/ZIP Co de Phone Number [facility] [place] [address] * (ABNORMAL) Basic Metabolic Panel (non-fasting) (06/28/2022 5:38 AM EST) Glucose Lvl 95 65 - 199 mg/dL [facility] Comment:Diabetes: >=200 mg/d L plus symptoms BUN 11 8 - 18 mg/dL [facility] Creatinine 0.27(L) 0.70 - 1.20 mg/dL [facility] Sodium 137 135 - 145 mmol/L [facility] Potassium 4.0 3.5 - 5.0 mmol/L [facility] Comment: Please note: ??Patients with WBC >100,000 may have falsely elevated Potassium levels. ??For accurate Potassium quantification in these patients send serum separator tube (gold top) for subsequent determinations. ??Contact the Clinical Chemistry Laboratory if there are any questions. Chloride 102 98 - 107 mmol/L [facility] CO2 25 22 - 31 mmol/L [facility] Anion Gap 10 5 - 15 mmol/L [facility] Calcium 9.1 8.5 - 10.5 mg/dL [facility] Estimated GFR 151 >=60 mL/min/1. 73 m?? [facility] Comment: This patient's estimated GFR [...] In Lab Anurag Call DO CHEMISTRY ORDERABLES [facility] [place] [address] * (ABNORMAL) CRP, acute inflammation (06/28/2022 5:38 AM EST) CRP 53.8(H) <=4.9 mg/L [facility] Blood 06/28/2022 5:38 AM EST 06/28/2022 5:54 AM EST Narrative Resulting Agency Comment Spec In Lab Anurag Call DO CHEMISTRY ORDERABLES Performing Organization Address [facility]/State/ZIP Co de Phone Number [facility] [place] [address] * (ABNORMAL) Sedimentation rate (06/28/2022 5:38 AM EST) [facility] Sed Rate 113(H) 2 - 37 mm/hr [facility] Comment: Effective April 06, 2019 new capillary photometric technology has resulted in a change in reference ranges. It is recommended that each ESR result be reviewed with its own age appropriate reference range. Blood 06/28/2022 5:38 AM EST 06/28/2022 5:54 AM EST Narrative Resulting Agency Comment Spec In Lab Anurag Call DO HEMATOLOGY ORDERABLE S [facility] [place] [address] * Differential, Automated (06/27/2022 5:58 AM EST) [facility] Neutrophils % 50.4 % [facility] Neutr Abs (ANC) 2.79 1.70 - 6.10 x10(3)/[facility] Lymphocytes % 38.7 % [facility] Lymphocytes Abs 2.1 0.9 - 3.2 x10(3)/[facility] Monocytes % 8.0 % [facility] Monocyte Abs 0.4 0.3 - 0.9 x10(3)/[facility] Eosinophils % 1.8 % [facility] Eosinophils Abs 0.1 0.0 - 0.4 x10(3)/[facility] Basophils % 0.7 % [facility] Basophils Abs 0.0 0.0 - 0.1 x10(3)/[facility] Immature Gran % 0.40 % [facility] Comment: Immature granulocytes(IG's)percentage and absolute count will include metamyelocytes, myelocytes, and promyelocytes. Blood smears from CBCs yielding IG's will be scanned manually for concordance. If this scan disagrees with the automated IG or if promyelocytes are noted, a manual differential will be performed. Debora Gran Abs 0.02 0.00 - 0.04 x10(3)/[facility] Blood 06/27/2022 5:58 AM EST 06/27/2022 6:24 AM EST Narrative Resulting Agency Comment Spec In Lab Eddi Vázquez MD HEMATOLOGY ORDERABLE S Performing Organization Address City/State/[facility] Co de Phone Number [facility] [place] [address] * (ABNORMAL) Hemogram (06/27/2022 5:58 AM EST) WBC 5.5 4.0 - 9.5 x10(3)/[facility] RBC 3.85(L) 4.00 - 5.21 x10(6)/[facility] Hemoglobin 9.2(L) 11.7 - 15.5 g/dL [facility] Hematocrit 30.0(L) 35.7 - 45.8 % [facility] MCV 77.9(L) 82.6 - 94.4 fL [facility] MCH 23.9(L) 27.1 - 32.0 pg [facility] MCHC 30.7(L) 31.7 - 35.0 g/dL [facility] Platelets 389(H) 145 - 357 x10(3)/[facility] RDWSD 50.5(H) 37.0 - 46.0 fL [facility] RDWCV 17.9(H) 11.5 - 14.1 % [facility] MPV 9.4 7.6 - 12.9 fL [facility] nRBC % Auto 0.0 % [facility] nRBC Abs Auto 0.000 0.000 - 0.000 x10(3)/mcL [facility] Blood 06/27/2022 5:58 AM EST 06/27/2022 6:24 AM EST Narrative Resulting Agency Comment Spec In Lab Eddi Vázquez MD HEMATOLOGY ORDERABLE S [facility] [place] [address] * (ABNORMAL) Basic Metabolic Panel (non-fasting) (06/27/2022 5:58 AM EST) Glucose Lvl 97 65 - 199 mg/dL [facility] Comment:Diabetes: >=200 mg/d L plus symptoms BUN 12 8 - 18 mg/dL [facility] Creatinine 0.32(L) 0.70 - 1.20 mg/dL [facility] Sodium 138 135 - 145 mmol/L [facility] Potassium 3.9 3.5 - 5.0 mmol/L [facility] Comment: Please note: ??Patients with WBC >100,000 may have falsely elevated Potassium levels. ??For accurate Potassium quantification in these patients send serum separator tube (gold top) for subsequent determinations. ??Contact the Clinical Chemistry Laboratory if there are any questions. Chloride 102 98 - 107 mmol/L [facility] CO2 25 22 - 31 mmol/L [facility] Anion Gap 11 5 - 15 mmol/L [facility] Calcium 9.2 8.5 - 10.5 mg/dL [facility] Estimated GFR 145 >=60 mL/min/1. 73 m?? [facility] Comment: This patient's estimated GFR [...] In Lab Eddi Vázquez MD CHEMISTRY ORDERABLES [facility] [place] [address] * (ABNORMAL) Blood Gas Venous ([facility]) (06/26/2022 9:01 PM EST) pH Hitesh 7.45(H) 7.32 - 7.42 [facility] pCO2 Hitesh 40(L) 41 - 51 mmHg [facility] pO2 Hitesh 70(H) 25 - 40 mmHg [facility] HCO3 Hitesh 27.2 mmol/L [facility] BE Hitesh 3.2 mmol/L [facility] Hgb Blood Gas 11.5(L) 11.7 - 15.5 g/dL [facility] O2HB Hitesh 94.6 % [facility] COHB Hitesh 0.1 % [facility] Comment: Nonsmokers: 0.5-1.5% COHB Smokers: Variable, but usually less than 10% Toxic: 20-30% COHB Lethal: Greater than 60% COHB METHB Hitesh 0.3 <=1.5 % [facility] Na Whole Blood 140 135 - 145 mmol/L [facility] K Whole Blood 4.2 3.5 - 5.0 mmol/L [facility] Comment: Please note: Patients with WBC >100,000 may have falsely elevated Potassium levels. Contact the Clinical Chemistry Laboratory if there are any questions. ICa Whole Blood 1.20 1.15 - 1.33 mmol/L [facility] Comment: Note: ??Total bilirubin higher than 20 mg/dL may lead to falsely low ionized calcium. CL Whole Blood 101 98 - 107 mmol/L [facility] Gluc Whole Bld 98 65 - 199 mg/dL [facility] Comment:Diabetes: >=200 mg/d L plus symptoms Lactate WB 1.3 0.5 - 2.2 mmol/L [facility] BGas Source Venous [facility] Blood Venous Draw / Unknown 06/26/2022 9:01 PM EST 06/26/2022 9:07 PM EST Narrative Resulting Agency Comment Spec In Lab Mayank Kang MD CHEMISTRY ORDERABLES Performing Organization Address [facility] Co de Phone Number [facility] [place] [address] * EKG 12 Lead (06/26/2022 8:46 PM EST) Ventricular rate 136 BPM MUSE SYSTEM Atrial Rate 136 BPM MUSE SYSTEM P-R Interval 126 ms MUSE SYSTEM QRS Duration 72 ms MUSE SYSTEM Q-T Interval 298 ms MUSE SYSTEM QTC Calculated (Bezet) 448 ms MUSE SYSTEM Calculated P [place] 35 degrees MUSE SYSTEM Calculated R [place] 7 degrees MUSE SYSTEM Calculated T [place] 52 degrees MUSE SYSTEM INTERPRETATION Sinus tachycardia Abnormal ECG Confirmed by Altagracia Palomo ([id number]) on 06/27/2022 3:21:46 PM MUSE SYSTEM 06/26/2022 8:46 PM EST 06/27/2022 3:21 PM EST Mayank Kang MD ECG ORDERABLES Performing Organization Address City/[facility]/ZIP Co de Phone Number MUSE SYSTEM * Differential, Automated (06/26/2022 5:38 AM EST) Neutrophils % 55.3 % [facility] Neutr Abs (ANC) 2.95 1.70 - 6.10 x10(3)/[facility] Lymphocytes % 34.1 % [facility] Lymphocytes Abs 1.8 0.9 - 3.2 x10(3)/[facility] Monocytes % 8.1 % [facility] Monocyte Abs 0.4 0.3 - 0.9 x10(3)/[facility] Eosinophils % 1.7 % [facility] Eosinophils Abs 0.1 0.0 - 0.4 x10(3)/[facility] Basophils % 0.6 % [facility] Basophils Abs 0.0 0.0 - 0.1 x10(3)/[facility] Immature Gran % 0.20 % [facility] Comment: Immature granulocytes(IG's)percentage and absolute count will include metamyelocytes, myelocytes, and promyelocytes. Blood smears from CBCs yielding IG's will be scanned manually for concordance. If this scan disagrees with the automated IG or if promyelocytes are noted, a manual differential will be performed. Debora Gran Abs 0.01 0.00 - 0.04 x10(3)/[facility] Blood 06/26/2022 5:38 AM EST 06/26/2022 6:21 AM EST Narrative Resulting Agency Comment Spec In Lab Eddi Vázquez MD HEMATOLOGY ORDERABLE S [facility] [place] [address] * (ABNORMAL) Hemogram (06/26/2022 5:38 AM EST) WBC 5.3 4.0 - 9.5 x10(3)/[facility] RBC 4.30 4.00 - 5.21 x10(6)/[facility] Hemoglobin 10.1(L) 11.7 - 15.5 g/dL [facility] Hematocrit 33.5(L) 35.7 - 45.8 % [facility] MCV 77.9(L) 82.6 - 94.4 fL [facility] MCH 23.5(L) 27.1 - 32.0 pg [facility] MCHC 30.1(L) 31.7 - 35.0 g/dL [facility] Platelets 467(H) 145 - 357 x10(3)/[facility] RDWSD 50.8(H) 37.0 - 46.0 fL [facility] RDWCV 18.1(H) 11.5 - 14.1 % [facility] MPV 9.4 7.6 - 12.9 fL [facility] nRBC % Auto 0.0 % [facility] nRBC Abs Auto 0.000 0.000 - 0.000 x10(3)/[facility] Blood 06/26/2022 5:38 AM EST 06/26/2022 6:21 AM EST Narrative Resulting Agency Comment Spec In Lab Eddi Vázquez MD HEMATOLOGY ORDERABLE S [facility] [place] [phone] * (ABNORMAL) Basic Metabolic Panel (non-fasting) (06/26/2022 5:38 AM EST) Glucose Lvl 97 65 - 199 mg/dL [facility] Comment:Diabetes: >=200 mg/d L plus symptoms BUN 12 8 - 18 mg/dL [facility] Creatinine 0.28(L) 0.70 - 1.20 mg/dL [facility] Sodium 141 135 - 145 mmol/L [facility] Potassium 4.2 3.5 - 5.0 mmol/L [facility] Comment: Please note: ??Patients with WBC >100,000 may have falsely elevated Potassium levels. ??For accurate Potassium quantification in these patients send serum separator tube (gold top) for subsequent determinations. ??Contact the Clinical Chemistry Laboratory if there are any questions. Chloride 103 98 - 107 mmol/L [facility] CO2 26 22 - 31 mmol/L [facility] Anion Gap 12 5 - 15 mmol/L [facility] Calcium 9.3 8.5 - 10.5 mg/dL [facility] Estimated GFR 150 >=60 mL/min/1. 73 m?? [facility] Comment: This patient's estimated GFR [...] In Lab Eddi Vázquez MD CHEMISTRY ORDERABLES [facility] [place] [phone] * IR All Drainage Procedures (06/25/2022 4:45 [...] ??The tract was dilated, and an 8 Malagasy drain was advanced over the wire into [...] aspiration demonstrated shiraz pus, and an 8 Malagasy drain was placed using ultrasound guidance as above. I, the attending Interventional Radiologist performed the entire procedure. ?? Eddi Vázquez MD [facility] IR ORDERABLES * Anaerobic Culture (06/25/2022 3:12 PM EST) Anaerobic Culture No anaerobic organisms isolated [facility] Fluid 06/25/2022 3:12 PM EST 06/25/2022 5:21 PM EST Comment:Inferior spinal flui d collection Narrative Resulting Agency Comment Spec In Lab Anurag Call MICROBIOLOGY - GENER AL ORDERABLES Performing Organization Address [facility] Co de Phone Number [facility] [place] [address] * Body Fluid Culture, Aerobic (06/25/2022 3:12 PM EST) Body Fluid Culture No growth [facility] Gram Stain Many Neutrophils seen No microorganisms seen. [facility] Fluid 06/25/2022 3:12 PM EST 06/25/2022 5:21 PM EST Comment:Inferior spinal flui d collection Narrative Resulting Agency Comment Spec In Lab Anurag Call MICROBIOLOGY - GENER AL ORDERABLES Performing Organization Address [facility] Co de Phone Number [facility] [place] [address] * Anaerobic Culture (06/25/2022 3:11 PM EST) Anaerobic Culture No anaerobic organisms isolated [facility] Fluid 06/25/2022 3:11 PM EST 06/25/2022 5:21 PM EST Comment:Superior spinal flui d collection Narrative Resulting Agency Comment Spec In Lab Anurag Call MICROBIOLOGY - GENER AL ORDERABLES Performing Organization Address [facility] Co de Phone Number [facility] [place] [address] * Body Fluid Culture, Aerobic (06/25/2022 3:11 PM EST) Body Fluid Culture No growth [facility] Gram Stain Many Neutrophils seen No microorganisms seen. [facility] Fluid 06/25/2022 3:11 PM EST 06/25/2022 5:21 PM EST Comment:Superior spinal flui d collection Narrative Resulting Agency Comment Spec In Lab Anurag Call DO MICROBIOLOGY - GENER AL ORDERABLES Performing Organization Address City/[facility]/ZIP Co de Phone Number [facility] [place] [address] * Blood culture (06/25/2022 8:55 AM EST) Blood Culture No growth at 5 days. [facility] Blood Pediatric STRUCTURE OF RIGHT HAND / Unknown 06/25/2022 8:55 AM EST 06/25/2022 9:16 AM EST Comment:#2 Narrative Resulting Agency Comment Spec In Lab Eddi Vázquez MD MICROBIOLOGY - BLOOD ORDERABLES Performing Organization Address [facility] Co de Phone Number [facility] [place] [address] * Blood culture (06/25/2022 8:55 AM EST) Blood Culture No growth at 5 days. [facility] Blood Pediatric STRUCTURE OF RIGHT UPPER LIMB / Unknown 06/25/2022 8:55 AM EST 06/25/2022 9:16 AM EST Comment:#1 upper Narrative Resulting Agency Comment Spec In Lab Eddi Vázquez MD MICROBIOLOGY - BLOOD ORDERABLES Performing Organization Address City/[facility] Co de Phone Number [facility] [place] [address] * Differential, Automated (06/25/2022 2:20 AM EST) Neutrophils % 60.4 % [facility] Neutr Abs (ANC) 4.34 1.70 - 6.10 x10(3)/[facility] Lymphocytes % 30.3 % [facility] Lymphocytes Abs 2.2 0.9 - 3.2 x10(3)/[facility] Monocytes % 7.2 % [facility] Monocyte Abs 0.5 0.3 - 0.9 x10(3)/[facility] Eosinophils % 1.4 % [facility] Eosinophils Abs 0.1 0.0 - 0.4 x10(3)/[facility] LABORATORY Basophils % 0.6 % [facility] LABORATORY Basophils Abs 0.0 0.0 - 0.1 x10(3)/[facility] LABORATORY Immature Gran % 0.10 % [facility] LABOR[facility] Comment: Immature granulocytes(IG's)percentage and absolute count will include metamyelocytes, myelocytes, and promyelocytes. Blood smears from CBCs yielding IG's will be scanned manually for concordance. If this scan disagrees with the automated IG or if promyelocytes are noted, a manual differential will be performed. Debora Gran Abs 0.01 0.00 - 0.04 x10(3)/[facility] LABORATORY Blood 06/25/2022 2:20 AM EST 06/25/2022 2:26 AM EST Narrative Resulting Agency Comment Spec In Lab Eddi Vázquez MD HEMATOLOGY ORDERABLE S [facility] [place] [address] * (ABNORMAL) Hemogram (06/25/2022 2:20 AM EST) WBC 7.2 4.0 - 9.5 x10(3)/[facility] LABORATORY RBC 4.06 4.00 - 5.21 x10(6)/[facility] LABORATORY Hemoglobin 9.8(L) 11.7 - 15.5 g/dL [facility] Hematocrit 30.7(L) 35.7 - 45.8 % [facility] MCV 75.6(L) 82.6 - 94.4 fL [facility] MCH 24.1(L) 27.1 - 32.0 pg [facility] MCHC 31.9 31.7 - 35.0 g/dL [facility] Platelets 437(H) 145 - 357 x10(3)/[facility] LABORATORY RDWSD 48.7(H) 37.0 - 46.0 [facility] LABORATORY RDWCV 17.9(H) 11.5 - 14.1 % [facility] MPV 8.9 7.6 - 12.9 [facility] LABORATORY nRBC % Auto 0.0 % [facility] nRBC Abs Auto 0.000 0.000 - 0.000 x10(3)/[facility] LABORATORY Blood 06/25/2022 2:20 AM EST 06/25/2022 2:26 AM EST Narrative Resulting Agency Comment Spec In Lab Eddi Váqzuez MD HEMATOLOGY ORDERABLE S Performing Organization Address City/State/[facility] Co de Phone Number [facility] [place] [address] * (ABNORMAL) Basic Metabolic Panel (non-fasting) (06/25/2022 2:20 AM EST) Glucose Lvl 97 65 - 199 mg/dL [facility] Comment:Diabetes: >=200 mg/d L plus symptoms BUN 9 8 - 18 mg/dL [facility] Creatinine 0.30(L) 0.70 - 1.20 mg/dL [facility] Sodium 140 135 - 145 mmol/L [facility] Potassium 4.1 3.5 - 5.0 mmol/L [facility] Comment: Please note: ??Patients with WBC >100,000 may have falsely elevated Potassium levels. ??For accurate Potassium quantification in these patients send serum separator tube (gold top) for subsequent determinations. ??Contact the Clinical Chemistry Laboratory if there are any questions. Chloride 103 98 - 107 mmol/L [facility] CO2 27 22 - 31 mmol/L [facility] Anion Gap 10 5 - 15 mmol/L [facility] Calcium 9.4 8.5 - 10.5 mg/dL [facility] Estimated GFR 147 >=60 mL/min/1. 73 m?? [facility] Comment: This patient's estimated GFR [...] In Lab Eddi Vázquez MD CHEMISTRY ORDERABLES [facility] [place] [address] * CT Lumbar Spine w Contrast (06/24/2022 [...] have questions please contact the health director career services that requested your imaging first. ? Electronically signed by: Jamaal Villafuerte [facility] ([phone]), at 06/24/2022 6:56 PM Narrative 06/24/2022 6:56 [...] who have questions please contactthe health director career services that requested your imaging first. Electronically signed by: Jamaal Villafuerte [facility]([phone]), at 06/24/2022 6:56 PM Annabella Crawford APRN IMG CT ORDERABLES * Differential, Automated (06/24/2022 4:23 PM EST) Neutrophils % 63.2 % [facility] Neutr Abs (ANC) 4.29 1.70 - 6.10 x10(3)/[facility] LABORATORY Lymphocytes % 29.4 % [facility] Lymphocytes Abs 2.0 0.9 - 3.2 x10(3)/[facility] LABORATORY Monocytes % 4.6 % [facility] Monocyte Abs 0.3 0.3 - 0.9 x10(3)/[facility] LABORATORY Eosinophils % 1.8 % [facility] Eosinophils Abs 0.1 0.0 - 0.4 x10(3)/[facility] LABORATORY Basophils % 0.7 % [facility] Basophils Abs 0.0 0.0 - 0.1 x10(3)/[facility] LABORATORY Immature Gran % 0.30 % [facility] Comment: Immature granulocytes(IG's)percentage and absolute count will include metamyelocytes, myelocytes, and promyelocytes. Blood smears from CBCs yielding IG's will be scanned manually for concordance. If this scan disagrees with the automated IG or if promyelocytes are noted, a manual differential will be performed. Debora Gran Abs 0.02 0.00 - 0.04 x10(3)/[facility] LABORATORY Blood 06/24/2022 4:23 PM EST 06/24/2022 4:38 PM EST Narrative Resulting Agency Comment Spec In Lab Kvng SIMMS [place]EMATOLOG[place] [address] * (ABNORMAL) Hemogram (06/24/2022 4:23 PM EST) WBC 6.8 4.0 - 9.5 x10(3)/[facility] LABORATORY RBC 4.40 4.00 - 5.21 x10(6)/[facility] LABORATORY Hemoglobin 10.5(L) 11.7 - 15.5 g/dL [facility] Hematocrit 33.6(L) 35.7 - 45.8 % [facility] MCV 76.4(L) 82.6 - 94.4 fL [facility] MCH 23.9(L) 27.1 - 32.0 pg [facility] MCHC 31.3(L) 31.7 - 35.0 g/dL [facility] Platelets 516(H) 145 - 357 x10(3)/[facility] RDWSD 48.5(H) 37.0 - 46.0 [facility] LABORATORY RDWCV 17.8(H) 11.5 - 14.1 % [facility] MPV 9.0 7.6 - 12.9 [facility] LABORATORY nRBC % Auto 0.0 % [facility] nRBC Abs Auto 0.000 0.000 - 0.000 x10(3)/[facility] LABORATORY Blood 06/24/2022 4:23 PM EST 06/24/2022 4:38 PM EST Narrative Resulting Agency Comment Spec In Lab Kvng SIMMS HEMATOLOGY ORDERABL ES [facility] [place] [address] * (ABNORMAL) Sedimentation rate (06/24/2022 4:23 PM EST) Sed Rate >119(H) 2 - 37 mm/hr [facility] Comment: Effective April 06, 2019 new capillary photometric technology has resulted in a change in reference ranges. It is recommended that each ESR result be reviewed with its own age appropriate reference range. Blood 06/24/2022 4:23 PM EST 06/24/2022 4:38 PM EST Narrative Resulting Agency Comment Spec In Lab Gaby Robert MD HEMATOLOGY ORDERABLE S Performing Organization Address [facility]/ZIP Co de Phone Number [facility] [place] [address] * (ABNORMAL) CRP, acute inflammation (06/24/2022 4:23 PM EST) CRP 96.9(H) <=4.9 mg/L [facility] Blood 06/24/2022 4:23 PM EST 06/24/2022 4:38 PM EST Narrative Resulting Agency Comment Spec In Lab Gaby Robert MD CHEMISTRY ORDERABLES Performing Organization Address [facility] Co de Phone Number [facility] [place] [address] * (ABNORMAL) Basic Metabolic Panel (non-fasting) (06/24/2022 4:23 PM EST) Glucose Lvl 97 65 - 199 mg/dL [facility] Comment:Diabetes: >=200 mg/d L plus symptoms BUN 9 8 - 18 mg/dL [facility] Creatinine 0.26(L) 0.70 - 1.20 mg/dL [facility] Sodium 143 135 - 145 mmol/L [facility] Potassium 3.9 3.5 - 5.0 mmol/L [facility] Comment: Please note: ??Patients with WBC >100,000 may have falsely elevated Potassium levels. ??For accurate Potassium quantification in these patients send serum separator tube (gold top) for subsequent determinations. ??Contact the Clinical Chemistry Laboratory if there are any questions. Chloride 104 98 - 107 mmol/L [facility] CO2 27 22 - 31 mmol/L [facility] Anion Gap 12 5 - 15 mmol/L [facility] Calcium 10.0 8.5 - 10.5 mg/dL [facility] Estimated GFR 152 >=60 mL/min/1. 73 m?? [facility] Comment: This patient's estimated GFR [...] In Lab Gaby Robert MD CHEMISTRY ORDERABLES [facility] [place] [address] documented in this encounter Visit Diagnoses Diagnosis [...] 1 dose, On Thu07/06/22 at 0730 New 07/06/2022 6:47 AM EDT 500 mL/hr lactated [...] at 1815, Until Thu07/07/22 at 0414 New Bag 07/06/2022 10:20 PM EDT 150 mL/hr 150 mL/hr New 07/06/2022 6:55 PM EDT 150 mL/hr 150 [...] Bonds RN) 0942 (Given - Provider: Vi Bonsd RN) 0840 (Given - Provider: Jigna Neal, [...] documented as of this encounter Care Teams Wall Steamer Relationship Specialty Start Date End Date Lorna Bal APRN [address] [place] [address] PCP - General Family Medicine 05/27/18 documented as of this encounter
--- OUTSIDE RECORDS SUMMARY | 2023-11-23 16:38 | XMS_ITS | Encounter Summary ---
Author Organization [facility] [place] [address] Care Team Providers Care Skip Locator Name Role Phone Lorna Bal APRN Primary Care Provider [phone] Encounter Details Date Type Department Care Team [...] EDT TH Visit (TeleHealth) Infectious Disease at [facility] [place] [address] Lilli Joy APRN [facility] [place] [address] 12/03/2023 12:30 PM EDT Office Visit Infectious Disease at [place] [phone] Hollie Ambriz MD [facility] [place] [address] 12/03/2023 2:30 PM EDT Hospital En[place] [phone] Andrade Melvin MD [facility] [place] [address] documented as of this encounter Visit Diagnoses Not on filedocumented in this encounter Additional Health Concerns Infection Onset Date Last Indicated Resolved Time Parainfluenza Virus 06/28/2022 06/28/2022 07/10/19 23 8:09 PM EDT documented as of this encounter Care Teams Skip Locator Relationship Specialty Start Date End Date Lorna Bal APRN [address] [place] [address] PCP - General Family Medicine 05/27/18 documented as of this encounter
--- OUTSIDE RECORDS SUMMARY | 2023-11-23 16:38 | XMS_ITS | Encounter Summary ---
Author Organization [facility] Address [facility] [place] [address] Care Team Providers Care Piano Assembler Name Role Phone Lorna Bal APRN Primary Care Provider [phone] Reason for Visit * Auth/Cert Specialty Diagnoses [...] Expiration Date Visits Re quested Visits Authorized [id number] 1 1 Encounter Details Date Type Department Care Team (Late st Contact Info) Description 06/14/2018 9:12 AM EST Anesthesia Event [place] [address] Ty Amin MD [facility] [place] [address] Andrade Baldwin MD [facility] [place] [address] Anesthesia Record Procedure Summary Procedure Name Responsible Anesthesiologist Anesthesia Start Time Anesthesia Stop Time SURGICAL EXTRACTIONS, REMOVAL OF IMPACTED TOOTH, COMPLETELY BONY (WRVU 1.93) Ty Aimn MD 06/14/18 0912 06/14/18 1118 Events Date [...] 06/14/18; 0917; other (see comments) (right saphenous); [id number] catheter system; 22 gauge; Dr. Amin; 1; no longer indicated, removed per policy/procedure, catheter/device intact; 06/14/18; 1218 06/14/18 0917 by Laxmi Fowler, STORE KEEPER 06/14/18 1218 by Jessica Silva, EUNICE ETT Mask Ventilation: Ea sy (1); ETT Type: Cuffed, Nasal, KRISH; ETT Size: 7 mm; Mac Blade: 3; Notes: Asleep, Pre-O2; Attempts: 1; Laryngoscopy Grade: 1; ETT Placement Verified By: Auscultation, Capnometry, Visual; Secured at Teeth: 21 cm; Inserted by: Dr. Amin; Removal Date: 06/14/18; Removal Time: 1106 06/14/18 0924 by Laxmi Fowler, STORE KEEPER 06/14/18 1106 by Laxmi Fowler, STORE KEEPER Incision 06/14/18; 0937; gum; 12/23/21 (LDA cleanup [...] Amin MD - 06/14/2018 11:39 AM EST [facility] Department of Anesthesiology Post-procedure Note Patient: Tana Cavazos Procedure Summary Date: 06/14/18 [place] [facility] [place] [address] [place] [address] Anesthesia Start: 911 Anesthesia Stop: 1117 Procedures: [...] All Anesthesia Providers: Anesthesiologist: Ty Amin MD STORE KEEPER: Laxmi Fowler CRNA Vitals Value Taken Time BP 128/58 06/14/2018 12:00 PM Temp 36.1 ??C (97 ??F) 06/14/2018 11:15 AM Pulse 95 06/14/2018 11:30 AM Resp 20 06/14/2018 12:00 PM SpO2 97 % 06/14/2018 12:00 PM Pain Level 1 06/14/2018 12:00 PM Patient Location: PACU[facility] Level of Consciousness: Awake and Alert [...] at [facility] OR ??? PRO OSTEOTOMY FEMUR SHAFT/SUPRACONDY 08/15/2010 ??OSTEOTOMY, FEMUR SHAFT OR SUPRACONDYLAR W/O FIXATION performed by BARRERA OLIVER at [facility] OR ??? PRO RECONSTRUC HIP SOCKET, RESEC FEM HEAD 08/15/2010 ??ACETABULOPLASTY (GIRDLESTONE), RESECTION FEMORAL HEAD, BILATERAL performed by BARRERA OLIVER [facility] OR ??? PRO REMOVAL DEEP IMPLANT 08/15/2010 REMOVAL IMPLANT, DEEP, BRUNO performed by BARRERA OLIVER at [facility] OR ??? PRO REMOVE INFUSN DEVICE/PUMP N/A 05/11/2014 REMOVAL OF SPINE INFUSION PUMP performed by Jamaal Samuel MD at [facility] OR ??? PRO REMOVE SPINAL CANAL CATHETER N/A 05/11/2014 REMOVAL OF INTRATHECAL OR EPIDURAL CATHETER performed by Jamaal Samuel MD at [facility] OR ??? PRO REPR, DURAL/CSF LEAK, NOT REQ LAMINECTOMY N/A 05/20/2014 @REPAIR DURAL\CSF LEAK,NOT REQUIRING LAMINECTOMY performed by Freddy Isbell MD at [facility] OR Social History Tobacco Use ??? Smoking status: Never Smoker ??? Smokeless tobacco: Never Used ??? Tobacco comment: NO SMOKERS IN THE HOME Substance Use Topics ??? Alcohol use: No Social History Substance and Sexual Activity Drug Use No Allergies Allergen Reactions ??? Fluoxetine Other (See Comments) HIVES, HEART RACES ??? Tegaderm [Transparent Dressings] Itching and Dermatitis Please use [id number] Medications: MAR and/or home medications have been [...] EDT TH Visit (TeleHealth) [place] [address] Lilli Joy APRN [facility] [place] [address] 12/03/2023 12:30 PM EDT Office [place] [address] Hollie Ambriz MD [facility] [place] [address] 12/03/2023 2:30 PM EDT Hospital Encounter Radiology at [facility] [place] [phone] Andrade Melvin MD [facility] [place] [address] documented as of this encounter Visit Diagnoses [...] chloride 0.9% infusion CONTINUOUS PRN, Starting on 2/18/19 at 1017, Until 06/14/18 at 1118, Anesthesia Intra-op New Bag 06/14/2018 10:17 AM EST documented in this encounter Care Teams Piano Assembler Relationship Specialty Start Date End Date Lorna Bal APRN [address] [place] [address] PCP - General Family Medicine 05/27/18 documented as of this encounter
--- OUTSIDE RECORDS SUMMARY | 2023-11-23 16:38 | XMS_ITS | Encounter Summary ---
Author Organization [facility] Address [facility] [place] [address] Care Team Providers Care Historic Sites Supervisor Name Role Phone Lorna Bal APRN Primary Care Provider [phone] Reason for Visit * Reason Comments Follow-up * Consultation (Routine) - Specialty Diagnoses / Procedures Referred By Karlo duarte Referred To Contact Dermatology Diagnoses Disorder of the skin and subcutaneous tissue, unspecified Lorna Bal APRN [address] [place] [address] [facility] Dermatology [address] [place] [address] Referral ID Status Reason Start Date Expiration Date V isits Requested Visits Authorized [id number] Consult, Test & Treat Connection [facility] PCP Updated and/or Approved 10/10/2019 10/09/2020 12 12 Encounter Details Date Type Department Care Team (Late st Contact Info) Description 10/31/2019 10:40 AM EDT Office Visit Dermatology at [facility] [address] [place] [address] Deanna Norton MD [facility] [address] [place] [address] [employer] Social History Tobacco Use [...] Skin cancer (including type): no ?? HPI aTna Cavazos is a 24 y.o. female. Established pt here with her child care teacher Nely. She has a creaseon the left [...] [Transparent Dressings] Itching and Dermatitis Please use [id number] CURRENT MEDICATIONS: Current Outpatient Medications Medication Sig [...] documentation. Deanna Norton MD Section of Dermatology [facility] documented in this encounter Plan of Treatment Upcoming Encounters Date Type Department Care Team (Late st Contact Info) Description 11/25/2023 2:00 PM EDT TH Visit (TeleHealth) Infectious Disease at [place] [phone] Lilli Joy APRN [facility] [place] [address] 12/03/2023 12:30 PM EDT Office Visit Infectious Disease at [place] [phone] Hollie Ambriz MD [facility] [place] [address] 12/03/2023 2:30 PM EDT Hospital Encounter Radiology at [place] [phone] Andrade Melvin MD [facility] DR [place] [address] documented as of this encounter Visit Diagnoses Diagnosis Intertrigo Other specified erythematous condition documented in this encounter Care Teams Historic Sites Supervisor Relationship Specialty Start Date End Date Lorna Bal APRN [address] [place] [address] PCP - General Family Medicine 05/27/18 documented as of this encounter
--- OUTSIDE RECORDS SUMMARY | 2023-11-23 16:38 | XMS_ITS | Encounter Summary ---
[place] [address] Care Team Providers Care Medicaid Specialist Name Role Phone Lorna Bal APRN Primary Care Provider [phone] Encounter Details Date Type Department Care Team (Late st Contact Info) Description 06/19/2022 Telephone [place] [phone] Gurdeep Simmons MD [facility] [place] [address] Social History Tobacco Use Types Packs/Day Years [...] a call from Kelly Landa APRN at [facility] regarding Tana Cavazos through the transfer [...] was brought to the ED today byher roller operator as there was some concern for having perceived pain her back (patient is non-verbal).Per report, examination by providers at [facility] do not demonstrate evidence of pain, [...] The patient was evaluated by orthopaedics at [facility] (Dr. Weiss) who did not recommend [...] were answered. Gurdeep Simmons MD Orthopaedic Surgery 0010 documented in this encounter Plan of Treatment Upcoming Encounters Date Type Department Care Team (Late st Contact Info) Description 11/25/2023 2:00 PM EDT TH Visit (TeleHealth) [place] [address] Lilli Joy APRN [facility] [place] [address] 12/03/2023 12:30 PM EDT Office [place] [address] Hollie Ambriz MD [facility] [place] [address] 12/03/2023 2:30 PM EDT Hospital [place] [phone] Andrade Melvin MD [facility] [place] [address] documented as of this encounter Visit Diagnoses Not on filedocumented in this encounter Care Teams Medicaid Specialist Relationship Specialty Start Date End Date Lorna Bal APRN [address] [place] [address] PCP - General Family Medicine 05/27/18 documented as of this encounter
--- OUTSIDE RECORDS SUMMARY | 2023-11-23 16:38 | XMS_ITS | Encounter Summary ---
Author Organization [facility] [place] [address] Care Team Providers Care Hyperbaric Welder Diver Name Role Phone Lorna Bal APRN Primary Care Provider [phone] Encounter Details Date Type Department Care Team [...] EDT TH Visit (TeleHealth) [place] [phone] Lilli Joy APRN [facility] [place] [address] 12/03/2023 12:30 PM EDT Office Visit [place] [phone] Hollie Ambriz MD [facility] [place] [address] 12/03/2023 2:30 PM EDT Hospital Encounter Radiology at [facility] [place] [phone] Andrade Melvin MD [facility] INTERVENTION[place] [address] documented as of this encounter Visit Diagnoses Not on filedocumented in this encounter Care Teams Hyperbaric Welder Diver Relationship Specialty Start Date End Date Lorna Bal APRN [address] [place] [address] PCP - General Family Medicine 05/27/18 documented as of this encounter
--- OUTSIDE RECORDS SUMMARY | 2023-11-23 16:39 | XMS_ITS | Encounter Summary ---
[place] [address] Care Team Providers Care Consumer Loan Officer Name Role Phone Emelyn Easley MD Primary Care Provider [phone] Reason for Visit * Reason Onset Date Comments Appointment 12/10/2016 Encounter Details Date Type Department Care Team (Late st Contact Info) Description 12/10/2016 Telephone [place] [phone] Josse Mckee MD [address] [place] [address] Appointment Social History Tobacco Use Types Packs/Day [...] EDT TH Visit (TeleHealth) [place] [address] Lilli Joy, [facility] [place] [address] 12/03/2023 12:30 PM EDT Office [place] [address] Hollie Ambriz MD [facility] [place] [address] 12/03/2023 2:30 PM EDT Hospital Encounter Radiology at [place] [phone] Andrade Melvin MD [facility] [place] [address] documented as of this encounter Visit Diagnoses Diagnosis Acquired dysplasia of hip, unspecified laterality Neuromuscular scoliosis of lumbar region Other kyphoscoliosis and scoliosis Traumatic brain injury, without LOC, sequela documented in this encounter Care Teams Consumer Loan Officer Relationship Specialty Start Date End Date Emelyn Easley MD [address] [place] [address] PCP - General Family Medicine 08/26/16 05/26/18 documented as of this encounter
--- OUTSIDE RECORDS SUMMARY | 2023-11-23 16:39 | XMS_ITS | Encounter Summary ---
Author Organization [facility] [place] [address] Care Team Providers Care Enrollment Management Coordinator Name Role Phone Emelyn Easley MD Primary Care Provider [phone] Reason for Visit * Auth/Cert Specialty Diagnoses / Procedures Referred By Contac t Referred To Contact Diagnoses TBI, W/O LOC, SEQUEIA/ACQUIRED DYSPLASIA OF HIP Procedures PRO ANESTH, CAT/MRI SCAN, RADIATN THERAPY BONE SCAN Referral ID Status Reason Start Date Expiration Date Visits Re quested Visits Authorized [id number] 1 1 Encounter Details Date Type Department Care Team (Latest Contact Info) Description 12/30/2016 2:57 PM EDT - 12/30/2016 11:59 PM EDT Hospital Encounter [place] [address] Josse Mckee MD [facility] DR [place] [address] Discharge Disposition: Home Social History Tobacco Use [...] EDT TH Visit (TeleHealth) [place] [address] Lilli Joy APRN [facility] [place] [address] 12/03/2023 12:30 PM EDT Office Visit [place] [address] Hollie Ambriz MD [facility] [place] [address] 12/03/2023 2:30 PM EDT Hospital Encounter Radiology at [place] [phone] Andrade Melvin MD [facility] [place] [address] documented as of this encounter Procedures Procedure [...] on filedocumented in this encounter Care Teams Enrollment Management Coordinator Relationship Specialty Start Date End Date Emelyn Easley MD [address] [place] [address] PCP - General Family Medicine 08/26/16 05/26/18 documented as of this encounter
--- OUTSIDE RECORDS SUMMARY | 2023-11-23 16:39 | XMS_ITS | Encounter Summary ---
Author Organization [facility] Address [facility] [place] [address] Care Team Providers Care Cold Roll Inspector Name Role Phone Emelyn Easley MD Primary Care Provider [phone] Reason for Visit * Reason Comments Follow Up Surgery Bilateral Girdle sto ne procedure Encounter Details Date Type Department Care Team (Late st Contact Info) Description 03/06/2017 11:40 AM EST Office [place] [address] Josse Mckee MD [facility] DR [place] [address] Acquired dysplasia of hip, unspecified laterality; Traumatic [...] NAME: Tana Cavazos AGE: 21 y.o.. MR#: [id number] ? DATE OF VISIT: 03/06/2017 ? STAFF: [...] at that time, done with physiatry at [facility]. Dr. Mckee gave them his card [...] EDT TH Visit (TeleHealth) [place] [address] Lilli Joy APRN [facility] [place] [address] 12/03/2023 12:30 PM EDT Office [place] [address] Hollie Ambriz MD [facility] [place] [address] 12/03/2023 2:30 PM EDT Hospital [place] [address] Andrade Melvin MD [facility] [place] [address] documented as of this encounter Visit Diagnoses Diagnosis Acquired dysplasia of hip, unspecified laterality Traumatic brain injury, without loss of consciousness, sequela documented in this encounter Care Teams Cold Roll Inspector Relationship Specialty Start Date End Date Emelyn Easley MD [address] [place] [address] PCP - General Family Medicine 08/26/16 05/26/18 documented as of this encounter
--- OUTSIDE RECORDS SUMMARY | 2023-11-23 16:39 | XMS_ITS | Encounter Summary ---
Author Organization [facility] [place] [address] Care Team Providers Care Finger Waver Name Role Phone Naina Lindsey MD Primary Care Provider [phone] Reason for Visit * Reason Comments Follow-up HCK / REMOVE DEE Hayes Encounter Details Date Type Department Care Team (Latest Contact Info) Description 06/08/2014 4:30 PM EST Office Visit Pediatric [place] [address] Alek Sinha, LOCKMAKER [facility] [place] [address] Spasticity; Postoperative wound infection, subsequent encounter Discharge [...] this encounter Progress Notes * Alek Sinha, LOCKMAKER - 06/23/2014 3:02 PM EST Florin Cavazos was seen today in the pediatric neurosurgery clinic for a post-op follow up visit. Tana is a 18 year old girl with a history of increased tone which was managed with intrathecal baclofen. She underwent placement of an intrathecal baclofen pump in 2007 at the [facility]. Mother feels that the pump [...] EDT TH Visit (TeleHealth) Infectious Disease at [place] [phone] Lilli Joy APRN [facility] [address] [place] [address] 12/03/2023 12:30 PM EDT Office Visit Infectious Disease at [address] Hollie Ambriz MD [facility] [address] [place] [address] 12/03/2023 2:30 PM EDT Hospital Encounter Radiology at [place] [address] Andrade Melvin MD [facility] DR INTERVENTION[place] [address] documented as of this encounter Visit Diagnoses Diagnosis Spasticity Abnormal involuntary movements Postoperative wound infection, subsequent encounter documented in this encounter Care Teams Finger Waver Relationship Specialty Start Date End Date Naina Lindsey MD [address] [place], [place] [address] [address] PCP - General 03/19/10 08/25/16 documented as of this encounter
--- OUTSIDE RECORDS SUMMARY | 2023-11-23 16:39 | XMS_ITS | Encounter Summary ---
Author Organization [facility] [place] [address] Care Team Providers Care Emergency Room Physician Name Role Phone Emelyn Easley MD Primary Care Provider Reason for Visit * Reason Onset Date Comments Appointment 02/05/2017 Encounter Details Date Type Department Care Team (Late st Contact Info) Description 02/05/2017 Telephone [place] [address] Sarah Shah APRN [facility] [place] [address] Appointment Social History Tobacco Use Types Packs/Day [...] Visit (TeleHealth) Infectious Disease at [place] [phone] Lilli Joy APRN [facility] [place] [address] 12/03/2023 12:30 PM EDT Office [place] [address] Hollie Ambriz MD [facility] [place] [address] 12/03/2023 2:30 PM EDT Hospital Encounter Radiology at [place] [phone] Andrade Melvin MD [facility] [place] [address] documented as of this encounter Visit Diagnoses Not on filedocumented in this encounter Care Teams Emergency Room Physician Relationship Specialty Start Date End Date Emelyn Easley MD [address] [place] [address] PCP - General Family Medicine 08/26/16 05/26/18 documented as of this encounter
--- OUTSIDE RECORDS SUMMARY | 2023-11-23 16:39 | XMS_ITS | Encounter Summary ---
Author Organization [facility] [place] [address] Care Team Providers Care Prototype Fabricator Name Role Phone Emelyn Easley MD Primary Care Provider [phone] Encounter Details Date Type Department Care Team (Late st Contact Info) Description 11/17/2016 Orders [place] [address] Josse Mckee MD [facility] [place] [address] Neuromuscular scoliosis of lumbar region; Acquired dysplasia [...] EDT TH Visit (TeleHealth) [place] [address] Lilli Joy APRN [facility] INFECTIOUS DISEASE [place], [place] [address] 12/03/2023 12:30 PM EDT Office [place] [address] Hollie mAbriz MD [facility] [place] [address] 12/03/2023 2:30 PM EDT Hospital [place] [address] Andrade Melvin MD [facility] [place] [address] documented as of this encounter [...] laterality documented in this encounter Care Teams Prototype Fabricator Relationship Specialty Start Date End Date Emelyn Easley MD [address] [place] [address] PCP - General Family Medicine 08/26/16 05/26/18 documented as of this encounter
--- OUTSIDE RECORDS SUMMARY | 2023-11-23 16:39 | XMS_ITS | Encounter Summary ---
[place] [address] Care Team Providers Care Dairy Lab Technician Name Role Phone Naina Lindsey MD Primary Care Provider Reason for Visit * Reason Onset Date Comments Referral 09/13/2014 Encounter Details Date Type Department Care Team (Late st Contact Info) Description 09/13/2014 Telephone [place] [address] Emelyn Preez Referral Social History Tobacco Use Types Packs/Day [...] from referral: QUADRIPLEGIA NXR On a in [facility]. documented in this encounter Plan of Treatment Upcoming Encounters Date Type Department Care Team (Late st Contact Info) Description 11/25/2023 2:00 PM EDT TH Visit (TeleHealth) Infectious Disease at [place] [phone] Lilli Joy APRN [facility] [place] [address] 12/03/2023 12:30 PM EDT Office Visit Infectious Disease at [place] [address] Hollie Ambriz MD [facility] [place] [address] 12/03/2023 2:30 PM EDT Hospital Encounter Radiology at [address] Andrade Melvin MD [facility] [place] [address] documented as of this encounter Visit Diagnoses Not on filedocumented in this encounter Care Teams Dairy Lab Technician Relationship Specialty Start Date End Date [place]ain[place] [address] PCP - General 03/19/10 08/25/16 documented as of this encounter
--- OUTSIDE RECORDS SUMMARY | 2023-11-23 16:39 | XMS_ITS | Encounter Summary ---
Author Organization [facility] Address [facility] [place] [address] Care Team Providers Care Room Inspector Name Role Phone Naina Lindsey MD Primary Care Provider [phone] Reason for Referral * Consultation (Routine) - Closed Specialty Diagnoses / Procedures Referred By Contac t Referred To Contact Orthotics Diagnoses Traumatic brain injury, sequela Spasticity Scoliosis Mesha Cabral MD [facility] [place] [address] Referral ID Status Reason Start Date Expiration Date V isits Requested Visits Authorized [id number] Closed Consult, Test & Treat 11/09/2014 05/08/2015 3 3 Reason for Visit * Reason Comments Follow-up [place] Encounter Details Date Type Department Care Team (Late st Contact Info) Description 11/09/2014 10:00 AM EDT Office Visit [place] [address] Mesha Cabral MD [facility] [place] [address] Acquired dysplasia of hip, unspecified laterality; Traumatic [...] when her orthopedic care was received at [facility], I do not have those notes available [...] alignment where she had previously used a [place] type TLSO scoliosis brace, it does not [...] skin currently. Upper extremity exam reveals bilateral [id number] contractures of the shoulders, elbows, and wrists, [...] would have to be a referral to [facility] as I am no longer performing [...] EDT TH Visit (TeleHealth) [place] [address] Lilli Joy APRN [facility] [place] [address] 12/03/2023 12:30 PM EDT Office Visit [place] [address] Hollie Ambriz MD [facility] [place] [address] 12/03/2023 2:30 PM EDT Hospital Encounter [place] [address] Andrade Melvin MD [facility] DR [place] [address] Scheduled Referrals Name Type Priority Associated Diagnoses [...] limb documented in this encounter Care Teams Room Inspector Relationship Specialty Start Date End Date Naina Lindsey MD [address] [place] [address] PCP - General 03/19/10 08/25/16 documented as of this encounter
--- OUTSIDE RECORDS SUMMARY | 2023-11-23 16:39 | XMS_ITS | Encounter Summary ---
Author Organization [facility] Address [facility] [place] [address] Care Team Providers Care Dewaxer Name Role Phone Naina Lindsey MD Primary Care Provider [phone] Encounter Details Date Type Department Care Team (Latest Contact Info) Description 07/31/2015 11:18 AM EDT Hospital Encounter XRay at [address] [place] [address] Mesha Cabral MD [facility] [place] [address] Neuromuscular scoliosis of lumbar region; Traumatic brain [...] EDT TH Visit (TeleHealth) Infectious Disease at [place] [phone] Lilli Joy APRN [facility] [place] [address] 12/03/2023 12:30 PM EDT Office [place] [address] Hollie Ambriz MD [facility] [place] [address] 12/03/2023 2:30 PM EDT Hospital [place] [address] Andrade Melvin MD [facility] [place] [address] documented as of this encounter Procedures Procedure [...] sequela documented in this encounter Care Teams Dewaxer Relationship Specialty Start Date End Date Naina Lindsey MD [address] [place] [address] PCP - General 03/19/10 08/25/16 documented as of this encounter
--- OUTSIDE RECORDS SUMMARY | 2023-11-23 16:39 | XMS_ITS | Encounter Summary ---
Author Organization [facility] Address [facility] [place] [address] Care Team Providers Care Police Shift Commander Name Role Phone Emelyn Easley MD Primary Care Provider [phone] Reason for Visit * Reason Comments Rash * Consultation (Routine) - Closed Specialty Diagnoses / Procedures Referred By Karlo duarte Referred To Contact Dermatology Diagnoses RASH TO UPPER EXTREMITIES EXTENDS TO RIGHT SIDE. Lorna Bal APRN [address] [place] [address] [facility] [address] [place] [address] Referral ID Status Reason Start Date Expiration Date V isits Requested Visits Authorized [id number] Closed Consult, Test & Treat [facility] 09/15/2017 09/15/2018 1 1 Encounter Details Date Type Department Care Team (Late st Contact Info) Description 11/16/2017 9:00 AM EDT Office Visit Dermatology at [facility] [address] [place] [address] Emili Mcdonald MD [facility] DR GURDEEP [facility]J[place] [address] Keratosis pilaris (Primary Dx); Multiple [...] [Transparent Dressings] Itching and Dermatitis Please use [id number] Review of Systems: - General: Feels well. [...] by Emili Mcdonald MD Resident in Dermatology [facility] Patient seen in conjunction with staff rehab physician: Wally Araya MD Section of Dermatology [facility] Level of Resident Supervision: Direct Supervision (The [...] TH Visit (TeleHealth) [place] [address] Lilli Joy APRN [facility] [place] [address] 12/03/2023 12:30 PM EDT Office Visit Infectious Disease at [place] [phone] Hollie Ambriz MD [facility] [place] [address] 12/03/2023 2:30 PM EDT Hospital En[place] [address] Andrade Melvin MD [facility] INTERVENTIONAL [place] [address] documented as of this encounter Visit Diagnoses Diagnosis Keratosis pilaris- Primary Other specified congenital anomaly of skin Multiple benign nevi Benign neoplasm of skin, site unspecified documented in this encounter Care Teams Police Shift Commander Relationship Specialty Start Date End Date Emelyn Easley MD [address] [place] [address] PCP - General Family Medicine 08/26/16 05/26/18 documented as of this encounter
--- OUTSIDE RECORDS SUMMARY | 2023-11-23 16:39 | XMS_ITS | Encounter Summary ---
Author Organization [facility] [place] [address] Care Team Providers Care Street And Building Decorator Name Role Phone Naina Lindsey MD Primary Care Provider [phone] Encounter Details Date Type Department Care Team (Late st Contact Info) Description 12/29/2014 Orders [place] [address] Mesha Cabral MD [facility] [place] [address] Acquired dysplasia of hip, unspecified laterality; Presence [...] EDT TH Visit (TeleHealth) [place] [address] Lilli Joy APRN [facility] [place] [address] 12/03/2023 12:30 PM EDT Office Visit Infectious Disease at [place] [phone] Hollie Ambriz MD [facility] [place] [address] 12/03/2023 2:30 PM EDT Hospital Encounter Radiology at [place] [phone] Andrade Melvin MD [facility] [place] [address] documented as of this encounter Visit Diagnoses Diagnosis Acquired dysplasia of hip, unspecified laterality Presence of intrathecal baclofen pump Scoliosis Scoliosis (and kyphoscoliosis), idiopathic Spasticity Abnormal involuntary movements Traumatic brain injury, sequela documented in this encounter Care Teams Street And Building Decorator Relationship Specialty Start Date End Date Naina Lindsey MD [address] [place] [address] PCP - General 03/19/10 08/25/16 documented as of this encounter
--- OUTSIDE RECORDS SUMMARY | 2023-11-23 16:39 | XMS_ITS | Encounter Summary ---
Author Organization [facility] [place] [address] Care Team Providers Care Spray Machine Operator Name Role Phone Naina Lindsey MD Primary Care Provider [phone] Reason for Referral * Consultation (Routine) - Closed Specialty Diagnoses / Procedures Referred By Contac t Referred To Contact Neurology Diagnoses Traumatic brain injury, without loss of consciousness, sequela Spasticity Contracture of elbow, left Mesha Cabral MD [facility] [place] [address] Myah Abdi, [facility] [place] [address] Referral ID Status Reason Start Date Expiration Date V isits Requested Visits Authorized [id number] Closed Consult, Test & Treat 07/31/2015 07/30/2016 1 1 * Consultation (Routine) - Closed Specialty Diagnoses / Procedures Referred By Contac t Referred To Contact Diagnoses Traumatic brain injury, without loss of consciousness, sequela Spasticity Contracture of elbow, left Mesha Cabral MD [facility] [place] [address] Unknown None Referral ID Status Reason Start Date Expiration Date V isits Requested Visits Authorized [id number] Closed Consult, Test & Treat 07/31/2015 01/27/2016 1 1 Reason for Visit * Reason Comments Right Leg Pain Delayed Development Childhood Encounter Details Date Type Department Care Team (Late st Contact Info) Description 07/31/2015 11:00 AM EDT Office [place] [address] [facility] DR [place] [address] Neuromuscular scoliosis of lumbar region; Traumatic brain [...] a followup for this established patient of Clerk. She is 20 years old and has an underlying diagnosis of spastic quadriplegic cerebral palsy. She is accompanied by her mother and engineering project designer. Recently it has been noted that she [...] advised Mother that I will be leaving [facility] at the end of September of this [...] needs. Provider: Mesha Cabral [place] [address] documented in this encounter Plan of Treatment Upcoming Encounters Date Type Department Care Team (Late st Contact Info) Description 11/25/2023 2:00 PM EDT TH Visit (TeleHealth) Infectious Disease at [address] [facility] [place] [address] 12/03/2023 12:30 PM EDT Office Visit Infectious Disease at [address] [facility] [place] [address] 12/03/2023 2:30 PM EDT Hospital Encounter Radiology at [place] [address] [facility] [place] [address] Scheduled Referrals Name Type Priority Associated Diagnoses [...] Progression of remodeling and sclerosis about the [place] acetabulum and proximal right femoral fragment status [...] Progression of irregularity and remodeling about the [place] acetabulum. The femur remains gracile in nature. [...] Progression of irregularity and remodeling about the [place] acetabulum. The femurremains gracile in nature. Absent femoral head. IMPRESSION IMPRESSION: Progression of remodeling and sclerosis about the [place] acetabulum andproximal right femoral fragment status post [...] encounter documented in this encounter Care Teams Spray Machine Operator Relationship Specialty Start Date End Date Naina Lindsey MD [address] [place] [address] PCP - General 03/19/10 08/25/16 documented as of this encounter
--- OUTSIDE RECORDS SUMMARY | 2023-11-23 16:39 | XMS_ITS | Encounter Summary ---
[place] [address] Care Team Providers Care Clam Sorter Name Role Phone Emelyn Esaley MD Primary Care Provider [phone] Reason for Visit * Diagnostic Test (Routine) - Closed Specialty Diagnoses / Procedures Referred By Contac t Referred To Contact Radiology Diagnoses Traumatic brain injury, without LOC, sequela Acquired dysplasia of hip, unspecified laterality Spasticity Neuromuscular scoliosis of lumbar region Procedures NM Whole Body Bone Scan Vanda Carter PA [facility] [place] [address] [place] [address] Referral ID Status Reason Start Date Expiration Date V isits Requested Visits Authorized [id number] Closed Specialty Service Requested 11/24/2016 11/24/2017 1 1 Encounter Details Date Type Department Care Team (Latest Contact Info) Description 12/10/2016 2:00 PM EDT - 12/10/2016 11:59 PM EDT Hospital Encounter [place] [address] Josse Mckee MD [facility] [place] [address] Discharge Disposition: Home Social History [...] EDT TH Visit (TeleHealth) Infectious Disease at [address] Lilli Joy APRN [facility] [place] [address] 12/03/2023 12:30 PM EDT Office Visit Infectious Disease at [place] [phone] Hollie Ambriz MD [facility] [place] [address] 12/03/2023 2:30 PM EDT Hospital Encounter Radiology at [address] Andrade Melvin MD [facility] [place] [address] documented as of this encounter Procedures Procedure [...] mg documented in this encounter Care Teams Clam Sorter Relationship Specialty Start Date End Date Emelyn Easley MD [address] [place] [address] PCP - General Family Medicine 08/26/16 05/26/18 documented as of this encounter
--- OUTSIDE RECORDS SUMMARY | 2023-11-23 16:39 | XMS_ITS | Encounter Summary ---
[place] [address] Care Team Providers Care Poolroom Table Attendant Name Role Phone Naina Lindsey MD Primary Care Provider [phone] Encounter Details Date Type Department Care Team (Late st Contact Info) Description 01/04/2015 Telephone [place] [phone] Camille Griffin RN Social History Tobacco Use [...] equipment services. They do not have a [place] provider licence so they will not be able to help with the wheelchair. Spoke with mom and she does not want to go through [employer] again. Will discuss with the team to see if there are other options in [place] for the wheelchair. documented in this encounter Plan of Treatment Upcoming Encounters Date Type Department Care Team (Late st Contact Info) Description 11/25/2023 2:00 PM EDT TH Visit (TeleHealth) Infectious Disease at [address] Lilli Joy APRN [facility] [place] [address] 12/03/2023 12:30 PM EDT Office Visit Infectious Disease at [address] Hollie Ambriz MD [facility] [place] [address] 12/03/2023 2:30 PM EDT Hospital Encounter Radiology at [address] Andrade Melvin MD [facility] [place] [address] documented as of this encounter Visit Diagnoses Not on filedocumented in this encounter Care Teams Poolroom Table Attendant Relationship Specialty Start Date End Date Naina Lindsey MD [address] [place] [address] [place] [address] PCP - General 03/19/10 08/25/16 documented as of this encounter
--- OUTSIDE RECORDS SUMMARY | 2023-11-23 16:39 | XMS_ITS | Encounter Summary ---
[place] [address] Care Team Providers Care Lithograph Operator Name Role Phone Emelyn Easley MD Primary Care Provider [phone] Reason for Visit * Auth/Cert Specialty Diagnoses / Procedures Referred By Karlo duarte Referred To Contact Diagnoses TBI, W/O LOC, SEQUEIA/ACQUIRED DYSPLASIA OF HIP Procedures PRO ANESTH, CAT/MRI SCAN, RADIATN THERAPY BONE SCAN Referral ID Status Reason Start Date Expiration Date Visits Re quested Visits Authorized [id number] 1 1 Encounter Details Date Type Department Care Team (Late st Contact Info) Description 12/30/2016 3:23 PM EDT [place]est[place] [address] Gaby Cantu MD [facility] [place] [address] Sidney Lawson MD [facility] [place] [address] Anesthesia Record Procedure Summary Procedure Name Responsible [...] 165112/30/16 1315 by Sarahy Fregoso RN 12/30/16 1652 by Dana Antonio RN (RETIRED) Peripheral IV [...] Lawson MD - 12/30/2016 4:27 PM EDT [facility] Department of Anesthesiology Post-procedure Note Patient: Tana Cavazos Procedure Summary Date Anesthesia Start Anesthesia Stop Room / Location 12/30/16 1523 1608 [facility] ADULT RADIOLOGY / [facility] Procedure Diagnosis Surgeon Responsible Provider BONE SCAN (N/A ) (TBI, W/O LOC, SEQUEIA/ACQUIRED DYSPLASIA OF HIP) RESOURCE, ANESTHESIA-Gaby Hallman MD All Anesthesia Providers: Anesthesiologist: Gaby Cantu MD Broomcorn Seeder: Sidney Lawson MD Last (1hr) Vitals: BP (!) 80/50 (12/30/16 1608) Temp 36.2 ??C (97.2 ??F) (12/30/16 1608) Pulse 93 (12/30/16 1608) Resp 16 (12/30/16 1608) SpO2 97 % (12/30/16 1608) Patient Location: PACU/[facility] Level of Consciousness: Awake and Alert [...] BOTH LEGS performed by BARRERA OLIVER at [facility] OR ? ? PRO I&D, POST SPINE, LUMB/SACR/LUMBOSAC N/A 05/20/2014 @I & D, OPEN, DEEP ABSCESS, LUMBAR, SACRAL, LUMBOSACRAL performed by Freddy Isbell MD at [facility] OR ? ? PRO I&D, POST SPINE, LUMB/SACR/LUMBOSAC N/A 05/26/2014 @I & D, OPEN, DEEP ABSCESS, LUMBAR, SACRAL, LUMBOSACRAL performed by Freddy Isbell MD at [facility] OR ??? PRO OSTEOTOMY FEMUR SHAFT/SUPRACONDY 08/15/2010 ??OSTEOTOMY, FEMUR SHAFT OR SUPRACONDYLAR W/O FIXATION performed by BARRERA OLIVER at [facility] OR ??? PRO RECONSTRUC HIP SOCKET, RESEC FEM HEAD 08/15/2010 ??ACETABULOPLASTY (GIRDLESTONE), RESECTION FEMORAL HEAD, BILATERAL performed by BARRERA OLIVER [facility] OR ??? PRO REMOVAL DEEP IMPLANT 08/15/2010 REMOVAL IMPLANT, DEEP, BRUNO performed by BARRERA OLIVER at [facility] OR ??? PRO REMOVE INFUSN DEVICE/PUMP N/A 05/11/2014 REMOVAL OF SPINE INFUSION PUMP performed by Jamaal Samuel MD at [facility] OR ??? PRO REMOVE SPINAL CANAL CATHETER N/A 05/11/2014 REMOVAL OF INTRATHECAL OR EPIDURAL CATHETER performed by Jamaal Samuel MD at [facility] MAIN OR ??? PRO REPR, DURAL/CSF LEAK, NOT REQ LAMINECTOMY N/A 05/20/2014 @REPAIR DURAL\CSF LEAK,NOT REQUIRING LAMINECTOMY performed by Freddy Isbell MD at [facility] MAIN OR Social History Substance Use Topics ??? Smoking status: Never Smoker ??? Smokeless tobacco: Never Used Comment: NO SMOKERS IN THE HOME ??? Alcohol use No History Drug Use No Allergies Allergen Reactions ??? Fluoxetine Other (See Comments) HIVES, HEART RACES ??? Tegaderm [Transparent Dressings] Itching and Dermatitis Please use [id number] Medications: MAR and/or home medications have been [...] TH Visit (TeleHealth) [place] [address] Lilli Joy APRN [facility] [place] [address] 12/03/2023 12:30 PM EDT Office Visit [place] [phone] Hollie Ambriz MD [facility] [place] [address] 12/03/2023 2:30 PM EDT Hospital Encounter Radiology at [facility] [place] [phone] Andrade Melvin MD [facility] [place] [address] documented as of this encounter Visit Diagnoses [...] mL/hr documented in this encounter Care Teams Lithograph Operator Relationship Specialty Start Date End Date Emelyn Easley MD [address] [place] [address] PCP - General Family Medicine 08/26/16 05/26/18 documented as of this encounter
--- OUTSIDE RECORDS SUMMARY | 2023-11-23 16:39 | XMS_ITS | Encounter Summary ---
Author Organization [facility] [place] [address] Care Team Providers Care Millwright Apprentice Name Role Phone Emelyn Easley MD Primary Care Provider [phone] Reason for Referral * Diagnostic Test (Routine) - Closed Specialty Diagnoses / Procedures Referred By Contac t Referred To Contact Radiology Diagnoses Traumatic brain injury, without LOC, sequela Acquired dysplasia of hip, unspecified laterality Procedures NM Whole Body Bone Scan Vanda Carter PA [facility] [place] [address] [place] [address] Referral ID Status Reason Start Date Expiration Date V isits Requested Visits Authorized [id number] Closed Specialty Service Requested 12/16/2016 12/16/2017 2 2 Encounter Details Date Type Department Care Team (Late st Contact Info) Description 12/16/2016 [place] [address] Vanda Carter [place] [facility] [place] [address] Traumatic brain injury, without LOC, sequela; Acquired [...] EDT TH Visit (TeleHealth) [place] [address] Lilli Joy APRN [facility] [place] [address] 12/03/2023 12:30 PM EDT Office [place] [address] Hollie Ambriz MD [facility] [address] [place] [address] 12/03/2023 2:30 PM EDT Hospital Encounter Radiology at [place] [phone] Andrade Melvin MD [facility] DR [place] [address] documented as of this encounter Results * [...] laterality documented in this encounter Care Teams Millwright Apprentice Relationship Specialty Start Date End Date Emelyn Easley MD [address] [place] [address] PCP - General Family Medicine 08/26/16 05/26/18 documented as of this encounter
--- OUTSIDE RECORDS SUMMARY | 2023-11-23 16:39 | XMS_ITS | Encounter Summary ---
[place] [address] Care Team Providers Care Supervising Deputy Name Role Phone Emelyn Easley MD Primary Care Provider [phone] Reason for Visit * Reason Onset Date Comments Other 12/19/2016 Encounter Details Date Type Department Care Team (Late st Contact Info) Description 12/19/2016 [place] [phone] Josse Mckee MD [facility] [place] [address] Other Social History Tobacco Use Types Packs/Day [...] EDT TH Visit (TeleHealth) Infectious Disease at [place] [phone] Lilli Joy APRN [facility] [place] [address] 12/03/2023 12:30 PM EDT Office Visit Infectious Disease at [place] [phone] Hollie Ambriz MD [facility] [place] [address] 12/03/2023 2:30 PM EDT Hospital Encounter Radiology at [place] [phone] Andrade Melvin MD [facility] [place] [address] documented as of this encounter Visit Diagnoses Not on filedocumented in this encounter Care Teams Supervising Deputy Relationship Specialty Start Date End Date Emelyn Easley MD [address] [place] [address] PCP - General Family Medicine 08/26/16 05/26/18 documented as of this encounter
--- OUTSIDE RECORDS SUMMARY | 2023-11-23 16:39 | XMS_ITS | Encounter Summary ---
Author Organization [facility] Address [facility] [place] [address] Care Team Providers Care Manager Life Name Role Phone Emelyn Easley MD Primary Care Provider [phone] Reason for Referral * Physical Therapy (Routine) - Closed Specialty Diagnoses / Procedures Referred By Contac t Referred To Contact Diagnoses Traumatic brain injury, without LOC, sequela Acquired dysplasia of hip, unspecified laterality Spasticity Neuromuscular scoliosis of lumbar region Vanda Carter PA [facility] [place] [address] Unknown None Referral ID Status Reason Start Date Expiration Date V isits Requested Visits Authorized [id number] Closed Evaluate and Treat 11/24/2016 05/23/2017 12 12 * Diagnostic Test (Routine) - Closed Specialty Diagnoses / Procedures Referred By Contac t Referred To Contact Radiology Diagnoses Traumatic brain injury, without LOC, sequela Acquired dysplasia of hip, unspecified laterality Spasticity Neuromuscular scoliosis of lumbar region Procedures NM Whole Body Bone Scan Vanda Carter [place] [address] [place] [address] Referral ID Status Reason Start Date Expiration Date V isits Requested Visits Authorized [id number] Closed Specialty Service Requested 11/24/2016 11/24/2017 1 1 Reason for Visit * Consultation (Routine) - Closed Specialty Diagnoses / Procedures Referred By Contac t Referred To Contact Orthopaedics Diagnoses leg pain,chronic, right Emelyn Easley MD [address] [place] [address] [facility] Orthopa[facility]ics [address] [place] [address] Referral ID Status Reason Start Date Expiration Date V isits Requested Visits Authorized [id number] Closed Consult, Test & Treat [facility] 08/26/2016 08/26/2017 1 1 Encounter Details Date Type Department Care Team (Late st Contact Info) Description 11/24/2016 1:00 PM EDT Office [place] [address] Josse Mckee MD [facility] DR OR[place]OPA[place] [address] Traumatic brain injury, without LOC, sequela; Acquired [...] NAME: Tana Cavazos AGE: 21 y.o.. MR#: [id number] ? DATE OF VISIT: 11/24/2016 ? STAFF: [...] EDT TH Visit (TeleHealth) [place] [phone] Lilli Joy APRN [facility] [place] [address] 12/03/2023 12:30 PM EDT Office [place] [phone] Hollie Ambriz MD [facility] [place] [address] 12/03/2023 2:30 PM EDT Hospital [place] [address] Andrade Melvin MD [facility] [place] [address] Scheduled Referrals Name Type Priority Associated Diagnoses [...] scoliosis documented in this encounter Care Teams Manager Life Relationship Specialty Start Date End Date Emelyn Easley MD [address] [place] [address] PCP - General Family Medicine 08/26/16 05/26/18 documented as of this encounter
--- OUTSIDE RECORDS SUMMARY | 2023-11-23 16:39 | XMS_ITS | Encounter Summary ---
Author Organization [facility] [place] [address] Care Team Providers Care Epoxy Fabrication Supervisor Name Role Phone Naina Lindsey MD Primary Care Provider [phone] Encounter Details Date Type Department Care Team (Late st Contact Info) Description 06/19/2014 External Results [place] [phone] Donnell Dotson MD [facility] [place] [address] Social History Tobacco Use Types Packs/Day Years [...] EDT TH Visit (TeleHealth) [place] [phone] Lilli Joy [address]N [facility] [place] [address] 12/03/2023 12:30 PM EDT Office Visit Infectious Disease at [place] [phone] Hollie Ambriz MD [facility] DR [place] [address] 12/03/2023 2:30 PM EDT Hospital [place] [address] Andrade Melvin MD [facility] [place] [address] documented as of this encounter Procedures Procedure Name Priority Date/Time Associated Diagnosis Comments IMPLANTABLE DEVICES SCAN Routine 05/03/2014 3:51 PM EST documented in this encounter Visit Diagnoses Not on filedocumented in this encounter Care Teams Epoxy Fabrication Supervisor Relationship Specialty Start Date End Date Naina [place] [address] PCP - General 03/19/10 08/25/16 documented as of this encounter
--- OUTSIDE RECORDS SUMMARY | 2023-11-23 16:39 | XMS_ITS | Encounter Summary ---
Author Organization [facility] Address [facility] Benjamin [facility] [place] [address] Care Team Providers Care Anaesthetic Technician Name Role Phone Naina Lindsey MD Primary Care Provider [phone] Encounter Details Date Type Department Care Team (Late st Contact Info) Description 11/09/2014 Orders [place] [phone] Mesha Cabral MD [facility] [place] [address] Scoliosis Social History Tobacco Use Types Packs/Day [...] (TeleHealth) [place] [address] Lilli Joy APRN [facility] [place] [address] 12/03/2023 12:30 PM EDT Office Visit [place] [address] Hollie Ambriz MD [facility] [place] [address] 12/03/2023 2:30 PM EDT Hospital Encounter Radiology at [place] [phone] Andrade Melvin MD [facility] [place] [address] documented as of this encounter Visit Diagnoses Diagnosis Scoliosis Scoliosis (and kyphoscoliosis), idiopathic documented in this encounter Care Teams Anaesthetic Technician Relationship Specialty Start Date End Date Naina [place] [address] PCP - General 03/19/10 08/25/16 documented as of this encounter
--- OUTSIDE RECORDS SUMMARY | 2023-11-23 16:39 | XMS_ITS | Encounter Summary ---
Author Organization [facility] Address [facility] [place] [address] Care Team Providers Care Cook Apprentice Name Role Phone Emelyn Easley MD Primary Care Provider [phone] Encounter Details Date Type Department Care Team (Late st Contact Info) Description 01/20/2017 Telephone Orthopaedics at [facility] [place] [phone] Vanda Carter PA [facility] [place] [address] Social History Tobacco Use Types Packs/Day Years [...] EDT TH Visit (TeleHealth) Infectious Disease at [address] Lilli Joy APRN [facility] [place] [address] 12/03/2023 12:30 PM EDT Office Visit Infectious Disease at [place] [phone] Hollie Ambriz MD [facility] [place] [address] 12/03/2023 2:30 PM EDT Hospital Encounter Radiology at [place] [phone] Andrade Melvin MD [facility] [place] [address] documented as of this encounter Visit Diagnoses Not on filedocumented in this encounter Care Teams Cook Apprentice Relationship Specialty Start Date End Date Emelyn Easley MD [address] [place] [address] PCP - General Family Medicine 08/26/16 05/26/18 documented as of this encounter
--- OUTSIDE RECORDS SUMMARY | 2023-11-23 16:39 | XMS_ITS | Encounter Summary ---
Author [place] [address] Care Team Providers Care Intake Coordinator Name Role Phone Emelyn Easley MD Primary Care Provider [phone] Reason for Visit * Auth/Cert Specialty Diagnoses / Procedures Referred By Contac t Referred To Contact Diagnoses TBI, W/O LOC, SEQUEIA/ACQUIRED DYSPLASIA OF HIP Procedures PRO ANESTH, CAT/MRI SCAN, RADIATN THERAPY BONE SCAN Referral ID Status Reason Start Date Expiration Date Visits Re quested Visits Authorized [id number] 1 1 Encounter Details Date Type Department Care Team (Late st Contact Info) Description 12/30/2016 3:00 PM EDT - 12/30/2016 4:28 [place] [address] RESOURCE, ANESTHESIA-KRISTIN None BONE SCAN Social History [...] 11:40; without success they called for another small package and bundle sorter clerk. I paged at 12:17; person answering says [...] EDT TH Visit (TeleHealth) [place] [address] Lilli Joy APRN [facility] [place] [address] 12/03/2023 12:30 PM EDT Office [place] [address] Hollie Ambriz MD [facility] [place] [address] 12/03/2023 2:30 PM EDT Hospital [place] [address] Andrade Melvin MD [facility] [place] [address] documented as of this encounter Procedures Procedure Name Priority Date/Time Associated Diagnosis Comments BONE SCAN 12/30/2016 11:00 PM EDT TBI, W/O LOC, SEQUEIA/ACQUIRED DYSPLASIA OF HIP documented in this encounter Visit Diagnoses Not on filedocumented in this encounter Care Teams Intake Coordinator Relationship Specialty Start Date End Date Emelyn Easley MD [address] [place] [address] PCP - General Family Medicine 08/26/16 05/26/18 documented as of this encounter
--- OUTSIDE RECORDS SUMMARY | 2023-11-23 16:39 | XMS_ITS | Encounter Summary ---
Author Organization [facility] [place] [address] Care Team Providers Care Chemical Production Engineer Name Role Phone Naina Lindsey MD Primary Care Provider [phone] Reason for Referral * Consultation (Routine) - Specialty Diagnoses / Procedures Referred By Contac t Referred To Contact Physical Medicine and Rehab Diagnoses Acquired dysplasia of hip, unspecified laterality Traumatic brain injury, without LOC, sequela Ty Woods MD [facility] [place] [address] Alek Loaiza MD [address] [place] [address] [address] [place] [address] Referral ID Status Reason Start Date Expiration Date V isits Requested Visits Authorized [id number] Consult, Test & Treat 07/29/2016 01/25/2017 1 1 Encounter Details Date Type Department Care Team (Late st Contact Info) Description 07/29/2016 [place] [address] Ty Woods MD [facility] [place] [address] Acquired dysplasia of hip, unspecified laterality; Traumatic [...] EDT TH Visit (TeleHealth) Infectious Disease at [address] Lilli Joy APRN [facility] [place] [address] 12/03/2023 12:30 PM EDT Office Visit Infectious Disease at [address]1000 Hollie Ambriz MD [facility] DR [place] [address] 12/03/2023 2:30 PM EDT Hospital Encounter Radiology at [place] [address] Andrade Melvin MD [facility] DR INTERVENTION[place] [address] Scheduled Referrals Name Type Priority Associated Diagnoses Orde r Schedule Referral to Orthopaedics Outpatient Referral Routine Acquired dysplasia of hip, unspecified laterality Traumatic Brain Injury, Without Loc, Sequela Ordered: 07/29/2016 documented as of this encounter Visit Diagnoses Diagnosis Acquired dysplasia of hip, unspecified laterality Traumatic brain injury, without LOC, sequela documented in this encounter Care Teams Chemical Production Engineer Relationship Specialty Start Date End Date Naina Lindsey [place] [address] PCP - General 03/19/10 08/25/16 documented as of this encounter
--- OUTSIDE RECORDS SUMMARY | 2023-11-23 16:39 | XMS_ITS | Encounter Summary ---
Author Organization [facility] Address [facility] [place] [address] Care Team Providers Care Boiling Tub Operator Name Role Phone Naina Lindsey MD Primary Care Provider [phone] Encounter Details Date Type Department Care Team (Late st Contact Info) Description 11/09/2014 9:31 AM EDT - 11/09/2014 11:00 AM EDT Hospital Encounter XRay at [address] [place] [address] Scoliosis Social History Tobacco Use Types Packs/Day [...] EDT TH Visit (TeleHealth) Infectious Disease at [place] [phone] Lilli Joy APRN [facility] [place] [address] 12/03/2023 12:30 PM EDT Office Visit Infectious Disease at [place] [phone] Hollie Ambriz MD [facility] [place] [address] 12/03/2023 2:30 PM EDT Hospital Encounter Radiology at [place] [phone] Andrade Melvin MD [facility] [place] [address] documented as of this encounter Procedures Procedure [...] idiopathic documented in this encounter Care Teams Boiling Tub Operator Relationship Specialty Start Date End Date Naina Lindsey MD [address] [place] [address] PCP - General 03/19/10 08/25/16 documented as of this encounter
--- OUTSIDE RECORDS SUMMARY | 2023-11-23 16:39 | XMS_ITS | Encounter Summary ---
Author Organization [facility] Address [facility] [place] [address] Care Team Providers Care Bottle Capper Name Role Phone Naina Lindsey MD Primary Care Provider [phone] Reason for Referral * Consultation (Routine) - Specialty Diagnoses / Procedures Referred By Contmonica duarte Referred To Contact Orthotics Diagnoses Neuromuscular scoliosis of lumbar region Joe Porter MD [facility] [place] [address] Referral ID Status Reason Start Date Expiration Date V isits Requested Visits Authorized [id number] Consult, Test & Treat 06/19/2016 12/16/2016 1 1 Encounter Details Date Type Department Care Team (Late st Contact Info) Description 06/19/2016 [place] [address] Joe Porter MD [facility] [place] [address] Neuromuscular scoliosis of lumbar region Social History [...] requesting a new RX be sent to [facility]. Discussed with Dr. Porter, new Rx for soft TLSO brace faxed to [facility] in [facility]. documented in this encounter Plan of Treatment Upcoming Encounters Date Type Department Care Team (Late st Contact Info) Description 11/25/2023 2:00 PM EDT TH Visit (TeleHealth) [place] [address] Lilli Joy APRN [facility] [place] [address] 12/03/2023 12:30 PM EDT Office Visit Infectious Disease at [place] [phone] Hollie Ambriz MD [facility] [place] [address] 12/03/2023 2:30 PM EDT Hospital Encounter Radiology at [place] [address] Andrade Melvin MD [facility] [place] [address] Scheduled Referrals Name Type Priority Associated Diagnoses Orde r Schedule Referral to Othotist Outpatient Referral Routine Neuromuscular scoliosis of lumbar region Ordered: 06/19/2016 documented as of this encounter Visit Diagnoses Diagnosis Neuromuscular scoliosis of lumbar region Other kyphoscoliosis and scoliosis documented in this encounter Care Teams Bottle Capper Relationship Specialty Start Date End Date Naina Lindsey MD [address] [address] PCP - General 03/19/10 08/25/16 documented as of this encounter
--- OUTSIDE RECORDS SUMMARY | 2023-11-23 16:39 | XMS_ITS | Encounter Summary ---
Author Organization [facility] [place] [address] Care Team Providers Care Print Manager Name Role Phone Naina Lindsey MD Primary Care Provider [phone] Reason for Visit * Reason Onset Date Comments Bumped Appointment 09/29/2014 Encounter Details Date Type Department Care Team (Late st Contact Info) Description 09/29/2014 Telephone [place] [phone] Mesha Cabral MD [facility] [place] [address] Bumped Appointment Social History Tobacco Use Types [...] EDT TH Visit (TeleHealth) [place] [address] Lilli Joy APRN [facility] [place] [address] 12/03/2023 12:30 PM EDT Office Visit Infectious Disease at [place] [phone] Hollie Ambriz MD [facility] [place] [address] 12/03/2023 2:30 PM EDT Hospital Encounter Radiology at [place] [phone] Andrade Melvin MD [facility] [place] [address] documented as of this encounter Visit Diagnoses Not on filedocumented in this encounter Care Teams Print Manager Relationship Specialty Start Date End Date Naina Lindsey MD [address] [place] [address] PCP - General 03/19/10 08/25/16 documented as of this encounter
--- OUTSIDE RECORDS SUMMARY | 2023-11-23 16:39 | XMS_ITS | Encounter Summary ---
Author Organization [facility] [place] [address] Care Team Providers Care Plant Controls Specialist Name Role Phone Emelyn Easley MD Primary Care Provider [phone] Reason for Referral * Diagnostic Test (Routine) - Closed Specialty Diagnoses / Procedures Referred By Contac t Referred To Contact Radiology Diagnoses Traumatic brain injury, without LOC, sequela Acquired dysplasia of hip, unspecified laterality Procedures NM Whole Body Bone Scan Vanda Carter, [place] [address] [facility] [place] [address] Referral ID Status Reason Start Date Expiration Date V isits Requested Visits Authorized [id number] Closed Specialty Service Requested 12/16/2016 12/16/2017 2 2 Reason for Visit * Auth/Cert Specialty Diagnoses / Procedures Referred By Contac t Referred To Contact Diagnoses TBI, W/O LOC, SEQUEIA/ACQUIRED DYSPLASIA OF HIP Procedures PRO ANESTH, CAT/MRI SCAN, RADIATN THERAPY BONE SCAN Referral ID Status Reason Start Date Expiration Date Visits Re quested Visits Authorized [id number] 1 1 Encounter Details Date Type Department Care Team (Latest Contact Info) Description 12/30/2016 12:00 PM EDT - 12/30/2016 2:56 PM EDT Hospital Encounter [place] [address] Josse Mckee MD [facility] [place] [address] Traumatic brain injury, without LOC, sequela; Acquired [...] EDT TH Visit (TeleHealth) [place] [address] Lilli Joy APRN [facility] [place] [address] 12/03/2023 12:30 PM EDT Office [place] [address] Hollie Ambriz MD [facility] [place] [address] 12/03/2023 2:30 PM EDT Hospital Encounter Radiology at [facility] [place] [address] Andrade Melvin MD [facility] [place] [address] documented as of this encounter Procedures Procedure [...] at 12/30/2016 5:18 PM Josse Mckee MD [facility] [place] ORDERABLES documented in this encounter Visit Diagnoses Diagnosis Traumatic brain injury, without LOC, sequela Acquired dysplasia of hip, unspecified laterality documented in this encounter Administered Medications Inactive Administered Medications - up to 3 most recent administrations Medication Order MAR Action Action Date Dose Rate Site technetium (Tc-99m) methylene diphosphonate (MDP) injection 22 mCi 22 mCi, Intravenous, ONCE PRN, 1 dose, Starting on 12/30/16 at 1325, Until Tu12/30/16 at 1325, Per Protocol, Routine Given 12/30/2016 1:25 PM EDT 22 mCi documented in this encounter Care Teams Plant Controls Specialist Relationship Specialty Start Date End Date Emelyn Easley MD [address] [place] [address] PCP - General Family Medicine 08/26/16 05/26/18 documented as of this encounter
--- OUTSIDE RECORDS SUMMARY | 2023-11-23 16:39 | XMS_ITS | Encounter Summary ---
Author Organization [facility] [place] [address] Care Team Providers Care State Superintendent Of Schools Name Role Phone Naina Lindsey MD Primary Care Provider [phone] Reason for Visit * Reason Onset Date Comments Appointment 10/12/2014 Encounter Details Date Type Department Care Team (Late st Contact Info) Description 10/12/2014 Tele[place] [phone] Mesha Cabral MD [facility] DR ORTHOPAEDIC [place] [address] Appointment Social History Tobacco Use Types Packs/Day [...] EDT TH Visit (TeleHealth) Infectious Disease at [place] [phone] Lilli Joy APRN [facility] [place] [address] 12/03/2023 12:30 PM EDT Office Visit [place] [address] Hollie Ambriz MD [facility] DR INFECTIOUS [place] [address] 12/03/2023 2:30 PM EDT Hospital Encounter Radiology at [place] [phone] Andrade Melvin MD [facility] DR INTERVENTION[place] [address] documented as of this encounter Visit Diagnoses Not on filedocumented in this encounter Care Teams State Superintendent Of Schools Relationship Specialty Start Date End Date Naina [place] [address] PCP - General 03/19/10 08/25/16 documented as of this encounter
--- OUTSIDE RECORDS SUMMARY | 2023-11-23 16:39 | XMS_ITS | Encounter Summary ---
[place] [address] Care Team Providers Care Press Tender Incendiary Grenade Name Role Phone Emelyn Easley MD Primary Care Provider [phone] Reason for Referral * Diagnostic Test (Routine) - Closed Specialty Diagnoses / Procedures Referred By Contac t Referred To Contact Radiology Diagnoses Traumatic brain injury, without LOC, sequela Acquired dysplasia of hip, unspecified laterality Spasticity Neuromuscular scoliosis of lumbar region Procedures NM Whole Body Bone Scan Vanda Carter PA [facility] [place] [address] [place] [address] Referral ID Status Reason Start Date Expiration Date V isits Requested Visits Authorized [id number] Closed Specialty Service Requested 11/24/2016 11/24/2017 1 1 Reason for Visit * Diagnostic Test (Routine) - Closed Specialty Diagnoses / Procedures Referred By Contac t Referred To Contact Radiology Diagnoses Traumatic brain injury, without LOC, sequela Acquired dysplasia of hip, unspecified laterality Spasticity Neuromuscular scoliosis of lumbar region Procedures NM Whole Body Bone Scan Vanda Carter [place] [facility] [place] [address] [facility] [place] [address] Referral ID Status Reason Start Date Expiration Date V isits Requested Visits Authorized [id number] Closed Specialty Service Requested 11/24/2016 11/24/2017 1 1 Encounter Details Date Type Department Care Team (Latest Contact Info) Description 12/10/2016 10:57 AM EDT - 12/10/2016 1:59 PM EDT Hospital Encounter [place] [address] [facility] [place] [address] Traumatic brain injury, without LOC, [...] EDT TH Visit (TeleHealth) [place] [address] [facility] [place] [address] 12/03/2023 12:30 PM EDT Office [place] [address] [facility] [place] [address] 12/03/2023 2:30 PM EDT Hospital Encounter Radiology at [place] [phone] [facility] [place] [address] documented as of this encounter Procedures Procedure [...] mCi documented in this encounter Care Teams Press Tender Incendiary Grenade Relationship Specialty Start Date End Date Emelyn Easley MD [address] [place] [address] PCP - General Family Medicine 08/26/16 05/26/18 documented as of this encounter
--- OUTSIDE RECORDS SUMMARY | 2023-11-23 16:39 | XMS_ITS | Encounter Summary ---
Author Organization [facility] Address [facility] [place] [address] Care Team Providers Care Uppers Edge Burnisher Name Role Phone Emelyn Easley MD Primary Care Provider [phone] Encounter Details Date Type Department Care Team (Latest Contact Info) Description 11/24/2016 12:03 PM EDT Hospital Encounter XRay at [address] [place] [address] Josse Mckee MD [facility] [place] [address] Neuromuscular scoliosis of lumbar region Discharge Disposition: [...] EDT TH Visit (TeleHealth) [place] [address] Lilli Joy APRN [facility] [place] [address] 12/03/2023 12:30 PM EDT Office [place] [address] Hollie Ambriz MD [facility] INFECTIOUS DISEASE [place], [place] [address] 12/03/2023 2:30 PM EDT Hospital [place] [address] Andrade Melvin MD [facility] [place] [address] documented as of this encounter Procedures Procedure [...] scoliosis documented in this encounter Care Teams Uppers Edge Burnisher Relationship Specialty Start Date End Date Emelyn Easley MD [address] [place] [address] PCP - General Family Medicine 08/26/16 05/26/18 documented as of this encounter
--- OUTSIDE RECORDS SUMMARY | 2023-11-23 16:39 | XMS_ITS | Encounter Summary ---
Author Organization [facility] Address [facility] [place] [address] Care Team Providers Care Regulatory Analyst Name Role Phone Naina Lindsey MD Primary Care Provider [phone] Encounter Details Date Type Department Care Team (Late st Contact Info) Description 11/09/2014 Orders [place] [address] Mesha Cabral MD [facility] [place] [address] Scoliosis Social History Tobacco Use Types Packs/Day [...] EDT TH Visit (TeleHealth) [place] [address] Lilli Joy APRN [facility] [place] [address] 12/03/2023 12:30 PM EDT Office Visit Infectious Disease at [place] [phone] Hollie Ambriz MD [facility] [place] [address] 12/03/2023 2:30 PM EDT Hospital [place] [address] Andrade Melvin MD [facility] [place] [address] documented as of this encounter [...] idiopathic documented in this encounter Care Teams Regulatory Analyst Relationship Specialty Start Date End Date Naina Lindsey MD [address] [place] [address] PCP - General 03/19/10 08/25/16 documented as of this encounter
--- OUTSIDE RECORDS SUMMARY | 2023-11-23 16:39 | XMS_ITS | Encounter Summary ---
Author Organization [facility] Address [facility] [place] [address] Care Team Providers Care Master Automotive Technician Name Role Phone Naina Lindsey MD Primary Care Provider [phone] Encounter Details Date Type Department Care Team (Latest Contact Info) Description 11/09/2014 11:01 AM EDT - 11/09/2014 11:59 PM EDT Hospital Encounter XRay at [address] [place] [address] Acquired dysplasia of hip, unspecified laterality; Traumatic [...] Visit (TeleHealth) Infectious Disease at [place] [phone] Lilli Joy APRN [facility] [place] [address] 12/03/2023 12:30 PM EDT Office Visit Infectious Disease at [place] [phone] Hollie Ambriz MD [facility] [place] [address] 12/03/2023 2:30 PM EDT Hospital En[place] [address] Andrade Melvin MD [facility] [place] [address] documented as of this encounter Procedures Procedure [...] limb documented in this encounter Care Teams Master Automotive Technician Relationship Specialty Start Date End Date Naina Lindsey MD [address] [place] [address] PCP - General 03/19/10 08/25/16 documented as of this encounter
--- OUTSIDE RECORDS SUMMARY | 2023-11-23 16:39 | XMS_ITS | Encounter Summary ---
Author Organization [facility] Address [facility] [place] [address] Care Team Providers Care Oven Equipment Repairer Name Role Phone Naina Lindsey MD Primary Care Provider Encounter Details Date Type Department Care Team (Latest Contact Info) Description 07/31/2015 11:19 AM EDT - 07/31/2015 11:59 PM EDT Hospital Encounter XRay at [address] [place] [address] Mesha Cabral MD [facility] [place] [address] Neuromuscular scoliosis of lumbar region; Traumatic brain [...] EDT TH Visit (TeleHealth) [place] [address] Lilli Joy APRN [facility] [place] [address] 12/03/2023 12:30 PM EDT Office Visit Infectious Disease at [place] [phone] Hollie Ambriz MD [facility] [place] [address] 12/03/2023 2:30 PM EDT Hospital [place] [address] Andrade Melvin MD [facility] DR [place] [address] documented as of this encounter Procedures Procedure [...] Progression of remodeling and sclerosis about the lower elwha acetabulum and proximal right femoral fragment status [...] Progression of irregularity and remodeling about the lower elwha acetabulum. The femur remains gracile in nature. [...] Progression of irregularity and remodeling about the lower elwha acetabulum. The femurremains gracile in nature. Absent femoral head. IMPRESSION IMPRESSION: Progression of remodeling and sclerosis about the lower elwha acetabulum andproximal right femoral fragment status post [...] encounter documented in this encounter Care Teams Oven Equipment Repairer Relationship Specialty Start Date End Date Naina Lindsey MD [address] [place] [address] PCP - General 03/19/10 08/25/16 documented as of this encounter
--- OUTSIDE RECORDS SUMMARY | 2023-11-23 16:39 | XMS_ITS | Encounter Summary ---
Author Organization [facility] [place] [address] Care Team Providers Care Partnership Development Manager Name Role Phone Emelyn Easley MD Primary Care Provider [phone] Reason for Visit * Auth/Cert Specialty Diagnoses / Procedures Referred By Contac t Referred To Contact Diagnoses TBI, W/O LOC, SEQUEIA/ACQUIRED DYSPLASIA OF HIP Procedures PRO ANESTH, CAT/MRI SCAN, RADIATN THERAPY BONE SCAN Referral ID Status Reason Start Date Expiration Date Visits Re quested Visits Authorized [id number] 1 1 Encounter Details Date Type Department Care Team (Latest Contact Info) Description 12/30/2016 10:57 AM EDT - 12/30/2016 4:52 PM EDT Hospital Encounter Same Day Program at [facility] [place] [address] Janna Strickland [place] [facility] [place] [address] Discharge Disposition: Home Social History Tobacco Use [...] 11:40; without success they called for another computer education professor. I paged at 12:17; person answering says [...] EDT TH Visit (TeleHealth) Infectious [place] [address] Lilli Joy, [facility] [address] 12/03/2023 12:30 PM EDT Office Visit Infectious Disease at [place] [phone] Hollie Ambriz MD [facility] [place] [address] 12/03/2023 2:30 PM EDT Hospital Encounter Radiology at [place] [phone] Andrade Melvin MD [facility] [place] [address] documented as of this encounter Procedures Procedure Name Priority Date/Time Associated Diagnosis Comments BONE SCAN 12/30/2016 11:00 PM EDT TBI, W/O LOC, SEQUEIA/ACQUIRED DYSPLASIA OF HIP documented in this encounter Visit Diagnoses Not on filedocumented in this encounter Care Teams Partnership Development Manager Relationship Specialty Start Date End Date Emelyn Easley MD [address] [place] [address] PCP - General Family Medicine 08/26/16 05/26/18 documented as of this encounter
--- OUTSIDE RECORDS SUMMARY | 2023-11-23 16:39 | XMS_ITS | Encounter Summary ---
Author Organization [facility] Address [facility] [place] [address] Care Team Providers Care Mix Crusher Operator Name Role Phone Emelyn Easley MD Primary Care Provider Encounter Details Date Type Department Care Team (Latest Contact Info) Description 11/24/2016 12:04 PM EDT - 11/24/2016 11:59 PM EDT Hospital Encounter XRay at [address] [place] [address] Josse Mckee MD [facility] [place] [address] Acquired dysplasia of hip, unspecified laterality Discharge [...] EDT TH Visit (TeleHealth) [place] [address] Lilli Joy APRN [facility] [place] [address] 12/03/2023 12:30 PM EDT Office Visit Infectious Disease at [place] [phone] Hollie Ambriz MD [facility] [place] [address] 12/03/2023 2:30 PM EDT Hospital Encounter Radiology at [place] [phone] Andrade Melvin MD [facility] [place] [address] documented as of this encounter Procedures Procedure [...] laterality documented in this encounter Care Teams Mix Crusher Operator Relationship Specialty Start Date End Date Emelyn Easley MD [address] [place] [address] PCP - General Family Medicine 08/26/16 05/26/18 documented as of this encounter
--- OUTSIDE RECORDS SUMMARY | 2023-11-23 16:39 | XMS_ITS | Encounter Summary ---
Author Organization [facility] Address [facility] [place] [address] Care Team Providers Care Geomagnetician Name Role Phone Naina Lindsey MD Primary Care Provider [phone] Encounter Details Date Type Department Care Team (Latest Contact Info) Description 11/09/2014 11:01 AM EDT - 11/09/2014 11:59 PM EDT Hospital Encounter XRay at [address] [place] [address] Acquired dysplasia of hip, unspecified laterality; Traumatic [...] TH Visit (TeleHealth) Infectious Disease at [place] [phone] Lilli Joy APRN [facility] [place] [address] 12/03/2023 12:30 PM EDT Office Visit Infectious Disease at [place] [phone] Hollie Ambriz MD [facility] [place] [address] 12/03/2023 2:30 PM EDT Hospital [place] [address] Andrade Melvin MD [facility] [place] [address] documented as of this encounter Procedures Procedure [...] limb documented in this encounter Care Teams Geomagnetician Relationship Specialty Start Date End Date Naina Lindsey MD [address] [place] [address] PCP - General 03/19/10 08/25/16 documented as of this encounter
--- OUTSIDE RECORDS SUMMARY | 2023-11-23 16:39 | XMS_ITS | Encounter Summary ---
Author Organization [facility] Address [facility] [place] [address] Care Team Providers Care Lang Path Therapist Name Role Phone Naina Lindsey MD Primary Care Provider [phone] Reason for Visit * Reason Onset Date Comments Appointment 08/02/2015 Encounter Details Date Type Department Care Team (Late st Contact Info) Description 08/02/2015 Telephone [place] [address] Mesha Cabral MD [facility] [place] [address] Appointment Social History Tobacco Use Types Packs/Day [...] EDT TH Visit (TeleHealth) [place] [address] Lilli Joy APRN [facility] [place] [address] 12/03/2023 12:30 PM EDT Office [place] [address] Hollie Ambriz MD [facility] [place] [address] 12/03/2023 2:30 PM EDT Hospital Encounter Radiology at [address] Andrade Melvin MD [facility] [place] [address] documented as of this encounter Visit Diagnoses Not on filedocumented in this encounter Care Teams Lang Path Therapist Relationship Specialty Start Date End Date Naina [place] [address] PCP - General 03/19/10 08/25/16 documented as of this encounter
--- OUTSIDE RECORDS SUMMARY | 2023-11-23 16:39 | XMS_ITS | Encounter Summary ---
Author Organization Count Includes [facility] Address [facility] [place] [address] Care Team Providers Care Information Management Manager Name Role Phone Lorna Bal APRN Primary Care Provider [phone] Reason for Visit * Consultation (Routine) - Closed Specialty Diagnoses / Procedures Referred By Contact Referred To Contact Maxillofacial Surgery Diagnoses wisdom teeth extraction no images Yas Conner, [place] [address] Keith Cotton MD [facility] [place] [place] [address] Referral ID Status Reason Start Date Expiration Date Visits Re quested Visits Authorized [id number] Closed 03/20/2018 03/20/2019 1 1 Encounter Details Date Type Department Care Team (Late st Contact Info) Description 05/27/2018 11:00 AM EST Office Visit [place] [address] Keith Cotton MD [facility] [place] [address] Impacted teeth Social History Tobacco Use Types [...] who is referred to us by at [facility] for consultation regarding wisdom teeth dental extractions. [...] [Transparent Dressings] Itching and Dermatitis Please use [id number] ROS with attention to cardiac, pulmonary, hepatic, [...] Visit (TeleHealth) Infectious Disease at [place] [phone] Lilli Joy APRN [facility] [place] [address] 12/03/2023 12:30 PM EDT Office Visit Infectious Disease at [place] [phone] Hollie Ambriz MD [facility] DR INFECTIOUS DISEASE [place] [id number] 12/03/2023 2:30 PM EDT Hospital Encounter Radiology at [place] [phone] Andrade Melvin MD [facility] [place] [address] documented as of this encounter Visit Diagnoses Diagnosis Impacted teeth documented in this encounter Care Teams Information Management Manager Relationship Specialty Start Date End Date Lorna Bal APRN [address] [place] [address] PCP - General Family Medicine 05/27/18 documented as of this encounter
--- OUTSIDE RECORDS SUMMARY | 2023-11-23 16:39 | XMS_ITS | Encounter Summary ---
Author Organization [facility] Address [facility] [place] [address] Care Team Providers Care Car Wiper Name Role Phone Naina Lindsey MD Primary Care Provider [phone] Reason for Visit * Reason Comments Scoliosis Encounter Details Date Type Department Care Team (Late st Contact Info) Description 12/29/2014 9:00 AM EDT Office [place] [phone] Ty Vogel MD [facility] [place] [address] Scoliosis Discharge Disposition: Home Social History Tobacco [...] past history with care received both at [facility] and in [place]. PAST MEDICAL HISTORY: For full history, please [...] EDT TH Visit (TeleHealth) [place] [address] Lilli Joy APRN [facility] [place] [address] 12/03/2023 12:30 PM EDT Office [place] [phone] Hollie Ambriz MD [facility] [place] [address] 12/03/2023 2:30 PM EDT Hospital [place] [address] Andrade Melvin MD [facility] [place] [address] documented as of this encounter Visit Diagnoses Diagnosis Scoliosis Scoliosis (and kyphoscoliosis), idiopathic documented in this encounter Care Teams Car Wiper Relationship Specialty Start Date End Date Naina Lindsey MD [address] [place] [address] [facility] [place] [address] PCP - General 03/19/10 08/25/16 documented as of this encounter
--- OUTSIDE RECORDS SUMMARY | 2023-11-23 16:40 | XMS_ITS | Encounter Summary ---
Author Organization [facility] Address [facility] [place] [address] Care Team Providers Care Land Surveying Survey Worker Name Role Phone Naina Lindsey MD Primary Care Provider [phone] Reason for Visit * Reason Comments Post-op Problem Encounter Details Date Type Department Care Team (Latest Contact Info) Description 05/20/2014 8:13 PM EST - 06/02/2014 4:25 PM [facility] Hospital Encounter [place] [address] Belkis Louie MD [facility] [place] [address] Freddy Burciaga MD [facility] [place] [address] Jamaal Samuel MD [facility] [place] [address] Febrile illness, acute Discharge Disposition: Home with [...] Routine, Hospital Performed Vendor / contact information: [facility] Patient location post discharge: home Service requested: IV abx Start date: 05/26/2014 Responsible MD post discharge contact info: PCP Luis (Edit) Referral to Home Health - at DISCHARGE Routine, Clinic Performed Agency name and contact information: [facility] Patient location post discharge: home What services are requested: Registered Nurse, Home Health Aide, Physical Therapy, Occupational Therapy Start date: 05/26/2014 Responsible MD post discharge contact info: PCP PATIENT'S LOCATION: Tana Hayes Dirk [address] [place] [phone] (home) In discussion with the attending physician, it is certified that this patient is under their care and that they, or a Nurse Practitioner,Clinical Nurse specialist or Physician Jewelry Maker who is working directly with them, [...] Continue with therapies OT: Continue with therapies SONOGRAPHER: Continue support HOME HEALTH CARE AGENCY: [facility]. PHONE: [phone] FAX: [phone] Start of care: 05/26/14 Please note that any additional orders needs or changes will need to be obtained from this patient's PCP: MD Coby [address] / [place] [address] All A agencies which cover the area of patient's residence have been reviewed, either verbally or in writing, and patient/family have chosen the home health care agency noted Emergency contact: After hours and weekends, call the [facility] stamp press operator at and ask them to page the neurosurgery resident studio operation engineer. documented in this encounter Medications at Time [...] (AVS) and given to the patient or assisted sales representative. 6) If VNA was ordered, [...] 0.9% 50 mL Mini-Bag Plus 2 g WltwxbfgktsH8P ??? baclofen 10 mg Oral Nightly ??? [...] elevated HR this am S: Kenneth Valiente. [facility], [id number] singing ABCs and counting along with stretches [...] pt to d/chome with support and continued PT/OT/VIDEO OPERATOR/VNA services. Staff communication/Mobility Recommendations: Pt. Would benefit [...] timed interventions: 30 minutes for TherEx-F Pager: [phone] Mary Joe OT Occupational Therapy Rehabilitation Department * Isra Perez RN - 06/01/2014 2:43 PM EST Patient Name: Tana Shelton Patient Age: 18 y.o. Birthdate: 1995 Admit date: 05/20/2014 Attending Physician: Jamaal Samuel MD OFFICE OF CARE MANAGEMENT Farhana Perez RN Pager: [phone] CLINICAL DENTAL OFFICE MANAGER PROGRESS NOTE e-DH reviewed. Report received from DEMI Sanchez. Patient continues to require acute inpatient care for the treatment of infection. Patient remains on triple abx while awaiting final cultures. [facility] and [facility] have been referred to for discharge. Met with patient's mother at bedside. Mom had multiple questions the other day regarding equipment for home. Mattress for hospital bed was ordered and delivered to home from [facility]. Tomasa Sling was ordered and is to be delivered by [facility] when it ships to [facility] warehouse. TLSO brace to be fitted by [place]. Mom also inquired about a new motorized wheelchair. Called [facility] in [place] to see if patient would qualify, left message with Oliver- the rehabilitation medicine physician for [facility]. Patient will need a assessment and [...] 0.9% 50 mL Mini-Bag Plus 2 g AeiroxruftcB6S ??? baclofen 10 mg Oral Nightly ??? [...] has recovered and I can review the [facility] records and films * Natividad [...] family in a single story home in [place], [place]. Pt's mother reports that there is no stair requirement, and that she has all necessary equipment. Stairs: 0 without a rail to enter Baseline Mobility: Completely dependent for all care, home nursing VNA services 3x/week, school-based PT/OT/VIDEO OPERATOR, pt due to receive a communication device [...] than in previous treatment session, counting withthis residential mortgage underwriter during stretching Objective: Patient seen for 45 [...] internal rotators, adductors ?? Pt helped this residential mortgage underwriter with opposite UE when performing stretching as [...] session, playing with toys, playfully tricking this residential mortgage underwriter when counting during passive stretching, and helping [...] exercise Natividad Esqueda PT, DPT 05/31/2014 Pager: [phone] Physical Therapy Inpatient Rehabilitation Department * Nathalie [...] OF CARE MANAGEMENT Farhana Perez RN Pager: [phone] CLINICAL DENTAL OFFICE MANAGER PROGRESS NOTE e-DH reviewed. Report received from DEMI Sanchez. Patient continues to require acute inpatient care for the treatment of infection. Patient is on triple abx. Patient needs a new mattress for her hospital bed at home. Patient's mother would like order placed with [employer]. Order pended and booking sent via [employer] Plan: CRC will continue to follow for [...] pt to d/chome with support and continued PT/OT/VIDEO OPERATOR/VNA services. Staff communication/Mobility Recommendations: Pt. Would benefit [...] timed interventions: 45 minutes for TherEx Pager: [phone] Mary Joe OT Occupational Therapy Rehabilitation Department [...] 0.9% 50 mL Mini-Bag Plus 2 g DuvmwsutrsvH2P ??? baclofen 10 mg Oral Nightly ??? [...] OF CARE MANAGEMENT Farhana Perez RN Pager: [phone] CLINICAL DENTAL OFFICE MANAGER PROGRESS NOTE e-DH reviewed. Report received [...] as pt becomes available. Please contact this residential mortgage underwriter with any further questions or concerns. Thank you. Pager: [phone] Mary Joe, OTR/L Occupational Therapy Inpatient Rehabilitation [...] family in a single story home in [place], [place]. Pt's mother reports that there is no stair requirement, and that she has all necessary equipment. Stairs: 0 without a rail to enter Baseline Mobility: Completely dependent for all care, home nursing VNA services 3x/week, school-based PT/OT/VIDEO OPERATOR, pt due to receive a communication device [...] pt very smiley today, counting with this residential mortgage underwriter during stretching, showing off her favorite toys [...] exercise Natividad Esqueda, PT, DPT 05/29/2014 Pager: [phone] Physical Therapy Inpatient Rehabilitation Department * Wai [...] not hesitate to page us on pager [phone] with further questions or concerns. Patient discussed with Dr. Wai Crabtree. Dimple Messina MD Fellow, Infectious Disease 05/29/2014 ID Staff: Discussed with Dr. Messina. Agree with current regimen. This will be a very difficult regimen at homeso some further discussion is needed. We are awaiting sensis on CoNS which may help us to narrow IVregimen. 15 minutes Brandin Crabtree MD * MaguireaDrius T - 05/29/2014 6:48 AM EST Neurosurgery [...] 0.9% 50 mL Mini-Bag Plus 2 g FslfacaekmrE4B ??? baclofen 10 mg Oral Nightly ??? [...] 0.9% 50 mL Mini-Bag Plus 2 g DpqbadpsjzlC7Z ??? baclofen 10 mg Oral Nightly ??? [...] CRC received call from EUNICE Hair, from [place], [place] or Asking for status as they will follow her after discharge for IV antibiotic treatment. She will need an OPAT order faxed to above agency when she is ready for discharge as well as administration teaching for home. When ready for discharge, [facility] PHONE: [phone] FAX: [phone] will also need to be updated. Referral had been made by previous CRC. Covering pager #[phone] for pager #[phone]. * Darius Maguire T - 05/27/2014 8:23 [...] 0.9% 50 mL Mini-Bag Plus 2 g DmbmntxbubzY4S ??? baclofen 10 mg Oral Nightly ??? [...] Dressing clean and dry Wound without fluctuance [address] Assessment/Plan:: 18 y.o. female s/p removal [...] family in a single story home in [place], [place]. Pt's mother reports that there is no stair requirement, and that she has all necessary equipment. Stairs: 0 without a rail to enter Baseline Mobility: Completely dependent for all care, home nursing VNA services 3x/week, school-based PT/OT/VIDEO OPERATOR, pt due to receive a communication device [...] Natividad J Cavagnaro, PT, DPT 05/26/2014 Pager: [phone] Physical Therapy Inpatient Rehabilitation Department * Freddy Burciaga MD - 05/26/2014 6:27 AM EST Neurosurgery - Inpatient Progress Note ID: Tana Shelton, 18 y.o. female s/p removal of retained hardware, washout of infection 05/20 POD 6 Interval Hx: -ALEKSANDRA -Neurologically stable Objective: Medications: Scheduled Meds: ??? cefTAZidime (FORTAZ) 2g vial attach to sodium chloride 0.9% 50 mL Mini-Bag Plus 2 g FwuqiziqoqnA1G ??? baclofen 10 mg Oral Nightly ??? [...] (05/26) or when appropriate. Please page this residential mortgage underwriter if you have any questions, thank you. Natividad Esqueda PT Pager #[phone] Physical Therapy Inpatient Rehabilitation * Mary Joe, [...] pt to d/chome with support and continued PT/OT/VIDEO OPERATOR/VNA services. Spoke to CRC this am about [...] timed interventions: 27 minutes for TherEx Pager: [phone] Mary Joe OT Occupational Therapy Rehabilitation Department [...] 0.9% 50 mL Mini-Bag Plus 2 g AixlwucpcmxM7R ??? baclofen 10 mg Oral Nightly ??? [...] of Care Management Farhana Perez RN Pager: [phone] Clinical Ripening Room Attendant Home IV Antibiotic Therapy Referral Note. Report received from NeuroSurgery Team that patient will require continued home IV antibiotic therapy after discharge from the hospital. Met with patient/family to discuss vendor and visiting nurse choices for home IV antibiotic therapy. Reviewed Home Infusion Vendors and Home Health Agencies that serve patient???s address and accept patient???s insurance. Home Health Agency: Patient requested referral to [facility] [email or web address]. PHONE: [phone] FAX: [phone]. Referrals sent via edischarge. Home Infusion Vendor: Patient requested referral to [place], [place] [phone] or Fax: . Referrals sent via edischarge. [...] 0.9% 50 mL Mini-Bag Plus 2 g TizgupfcsitS4Y ??? baclofen 10 mg Oral Nightly ??? [...] 0.9% 50 mL Mini-Bag Plus 2 g YxqsooqrvdyB3D ??? baclofen 10 mg Oral Nightly ??? [...] PM EST Office of Care Management Clinical Ripening Room Attendant Patient Name: Tana Shelton : 1995, 18 [...] None on File (x) HEALTH /PRESCRIPTION COVERAGE: [place] [facility] - [facility] CURRENT HOME/COMMUNITY SERVICES/EQUIPMENT: DME: [place] [facility] bed, wheelchair, tomasa lift, shower chair. Home Health Agency: [facility] PRIMARY CARE PHYSICIAN: NAINA LINDSEY MD [phone] POTENTIAL DISCHARGE NEEDS: Resume vna visits. Mother stated that she has [facility] vna - RN and Aide currently. Waiting to confirm this and pt needs. Might need home IV antibx. TRANSPORTATION @ D/C: family PLAN: CRC will continue to monitor progress, follow for continuity of care and assist with discharge planning while hospitalized Lesly Jesus RN Office of Care Management Clinical Ripening Room Attendant Covering for Farhana Chris [phone] Pager [phone] * Yandy Dasilva, PharmD - 05/22/2014 9:46 AM EST Clinical Pharmacist Note-Vanc Tana Barlowrd [id number] 1995 Tana Barlowrd is a 18 y.o. [...] have. Alternately, during off-hours you may call [phone] to contact a pharmacist. Yandy Dasilva, PHARMD Pager [phone] * Freddy Burciaga MD - 05/22/2014 6:59 [...] AND Vancomycin, trough AND Vancomycin Level - [facility] Order Reminder, oxyCODONE Vitals: Temp: [36.8 ??C [...] Clinically does not seem to be of HANDER IN origin. Continue triple antibiotics. ID consult. Cultures [...] given to [facility]. Transferred to [place] [phone] with transport services, RN + family members. Please call Anurag ICU-RN at [phone] with regards to any questions post transfer. [...] mcL Appearance UA Hazy (*) Clear Spec [place] UA 1.026 1.002 - 1.030 Color UA [...] SHELTON Ordered By: CELSONIKITETO Freddy DAILEY MR#: [id number] LOC: OR /Sex: 1995 (18 years), Female PROCEDURE: Tissue Culture SOURCE: Back COLLECTED: 05/20/2014 20:20 FREE TEXT SOURCE: Lumbar Wound Culture STARTED: 05/20/2014 22:13 STAINS / PREPARATIONS Gram Stain Report Verified:05/20/2014 22:28 Few White Blood Cells seen No microorganisms seen. TISSUE CULTURE Result Value Ref Range Tissue Culture Value: Patient Name: TANA SHELTON Ordered By: Freddy BURCIAGA MR#: [id number] LOC: OR /Sex: 1995 (18 years), Female [...] II initiated 0040: Report given to Jenn CATH LAB RADIOLOGY TECHNICIAN info reviewed/questions answered, pt ready for transfer [...] to the planned procedure. Hand Hygiene: The lens inserter did perform hand hygiene prior to line insertion. Catheter type: PICC Lot number: [id number] Procedure Technique: Skin was prepped with chlorhexidine. [...] warm and was flushed. They called the studio operation engineer neurosurgeon, who advised that they come to [...] BOTH LEGS performed by YAS OLIVER at [facility] MAIN OR ??? Removal deep implant 08/15/2010 REMOVAL IMPLANT, DEEP, BRUNO performed by YAS OLIVER at [facility] MAIN OR ??? Osteotomy femur shaft/supracondy 08/15/2010 ??OSTEOTOMY, FEMUR SHAFT OR SUPRACONDYLAR W/O FIXATION performed by YAS OLIVER at [facility] MAIN OR ??? Remove spinal canal catheter N/A 05/11/2014 REMOVAL OF INTRATHECAL OR EPIDURAL CATHETER performed by Jamaal Samuel MD at [facility] MAIN OR ??? Remove infusn device/pump N/A 05/11/2014 REMOVAL OF SPINE INFUSION PUMP performed by Jamaal Samuel MD at [facility] MAIN OR Medications: No current facility-administered medications [...] stepfather Tobacco exposure:No Day care/year in school: [employer] Physical Exam: Vitals: Patient Vitals for [...] mcL Appearance UA Hazy (*) Clear Spec [place] UA 1.026 1.002 - 1.030 Color UA [...] 05/21/14 0127 Lilli Esquivel MD Resident 05/21/14 2468 Associated attestation - Belkis Louie MD - [...] intrathecal baclofen pump in 2007 at the [facility] [place]. Mother feels that the pump has not [...] Routine, Hospital Performed Vendor / contact information: [facility] Patient location post discharge: home Service requested: IV abx Start date: 05/26/2014 Responsible MD post discharge contact info: PCP New (Edit) Referral to Home Health - at DISCHARGE Routine, Clinic Performed Agency name and contact information: [facility] Patient location post discharge: home What services are requested: Registered Nurse, Home Health Aide, Physical Therapy, Occupational Therapy Start date: 06/06/2014 Responsible MD post discharge contact info: PCP PATIENT'S LOCATION: Tana Freddy Shelton [address] [place] [phone] (home) In discussion with the attending physician, it is certified that this patient is under their care and that they, or a Nurse Practitioner,Clinical Nurse specialist or Physician Jewelry Maker who is working directly with them, [...] Continue with therapies OT: Continue with therapies SONOGRAPHER: Continue support HOME HEALTH CARE AGENCY: [facility] PHONE: [phone] FAX: [phone] Start of care: 05/26/14 Please note that any additional orders needs or changes will need to be obtained from this patient's PCP: NAINA LINDSEY MD [address] / [place] [id number] All VNA agencies which cover the area of patient's residence have been reviewed, either verbally or in writing, and patient/family have chosen the home health care agency noted Emergency contact: After hours and weekends, call the [facility] stamp press operator at and ask them to page the neurosurgery resident studio operation engineer. * Plan of Care - Margot Monzon [...] yo. Supervision: Continuous; Moraima. Fannie at home barking machine feeder at bedside this morning ; Mom arrived [...] AM EST Clinical Pharmacist Note-Vancomycin Tana Shelton [id number] 1995 Tana Shelton is a 18 y.o. [...] have. Alternately, during off-hours you may call [phone] to contact a pharmacist. Elmer Tobin PHARMD Pager [phone] * Plan of Care - Leana Hicks [...] Health Knowledge, Opportunity for Enhanced (Adult, NICU, [place], Obstetrics, Pediatric) Goal: Identify Signs and Symptoms [...] Burciaga MD - 05/26/2014 4:52 PM EST [facility] Operative Note Patient Name: Tana Shelton : [id number] MR#: [id number] Case Date: 05/26/2014 Surgeon: Surgeon(s) and Role: [...] (Interventions Implemented as Appropriate) 05/22/14 0634 05/24/14 2044 Discharge Needs Assessment Concerns to be Addressed [...] Health Knowledge, Opportunity for Enhanced (Adult, NICU, [place], Obstetrics, Pediatric) Knowledgeable about Health Subject/Topic achieves [...] (Interventions Implemented as Appropriate) 05/22/14 0634 05/24/14 2296 Discharge Needs Assessment Concerns to be Addressed [...] BILATERAL performed by YAS OLIVER [facility] OR ??? Apply of hip casts, two legs 08/15/2010 CAST APPLICATION, HIP SPICA, BOTH LEGS performed by YAS OLIVER at [facility] OR ??? Removal deep implant 08/15/2010 REMOVAL IMPLANT, DEEP, BRUNO performed by YAS OLIVER at [facility] OR ??? Osteotomy femur shaft/supracondy 08/15/2010 ??OSTEOTOMY, FEMUR SHAFT OR SUPRACONDYLAR W/O FIXATION performed by YAS OLIVER at [facility] OR ??? Remove spinal canal catheter N/A 05/11/2014 REMOVAL OF INTRATHECAL OR EPIDURAL CATHETER performed by Jamaal Samuel MD at [facility] OR ??? Remove infusn device/pump N/A 05/11/2014 REMOVAL OF SPINE INFUSION PUMP performed by Jamaal Samuel MD at [facility] OR ? ? I&d, post spine, lumb/sacr/lumbosac N/A 05/20/2014 @I & D, OPEN, DEEP ABSCESS, LUMBAR, SACRAL, LUMBOSACRAL performed by Freddy Burciaga MD at [facility] OR ??? Repr, dural/csf leak, not req laminectomy N/A 05/20/2014 @REPAIR DURAL\CSF LEAK,NOT REQUIRING LAMINECTOMY performed by Freddy Burciaga MD at [facility] MAIN OR Social and Developmental History: Patient lives with her family in a single level home in [place], [place]. Pt's mother reports that their home [...] has an older sister who lives in [place] and 3 younger brothers. She likes to [...] RN and mom assist. Feeding: per mom: [place] assist for use of utensils; not observed [...] to d/c home with support and continued PT/OT/VIDEO OPERATOR/VNA services. Spoke with CRC about consultfor new [...] you for this occupational therapy consult. Pager: [phone] Mary Joe OT 05/24/2014 Occupational Therapy Rehabilitation [...] BOTH LEGS performed by YAS OLIVER at [facility] MAIN OR ??? Removal deep implant 08/15/2010 REMOVAL IMPLANT, DEEP, BRUNO performed by YAS OLIVER at [facility] MA[facility] OR ??? Osteotomy femur shaft/supracondy 08/15/2010 ??OSTEOTOMY, FEMUR SHAFT OR SUPRACONDYLAR W/O FIXATION performed by YAS OLIVER at [facility] MAIN OR ??? Remove spinal canal catheter N/A 05/11/2014 REMOVAL OF INTRATHECAL OR EPIDURAL CATHETER performed by Jamaal Samuel MD at [facility] MA[facility] OR ??? Remove infusn device/pump N/A 05/11/2014 REMOVAL OF SPINE INFUSION PUMP performed by Jamaal Samuel MD at [facility] MA[facility] OR ? ? I&d, post spine, lumb/sacr/lumbosac N/A 05/20/2014 @I & D, OPEN, DEEP ABSCESS, LUMBAR, SACRAL, LUMBOSACRAL performed by Freddy Burciaga MD at [facility] MA[facility] OR ??? Repr, dural/csf leak, not req laminectomy N/A 05/20/2014 @REPAIR DURAL\CSF LEAK,NOT REQUIRING LAMINECTOMY performed by Freddy Burciaga MD at [facility] MA[facility] OR Social History: Patient lives with her family in a single story home in [place]. Pt's mother reports that there is no stair requirement, and that she has all necessary equipment. Stairs: 0 without a rail to enter Baseline Mobility: Completely dependent for all care, home nursing VNA services 3x/week, school-based PT/OT/VIDEO OPERATOR, pt due to receive a communication device [...] appropriate and joins in counting with this residential mortgage underwriter while stretching Objective: Pt seen for evaluation [...] minutes Natividad Esqueda PT, DPT 05/24/2014 Pager: [phone] Physical Therapy Inpatient Rehabilitation Department * Plan [...] clinical signs of meningitis. Cultures all growing secobar-sensitive Pseudomonas. Recommendations: 1 - OK to stop [...] team. Patient seen and discussed with Dr. rCabtree. Nely Boss MD Infectious Disease Fellow Internal [...] based on it's ability to penetrate the HANDER IN. We need todiscuss whether to pursue an [...] to 40 mEq. One dose of IV lgxeirexk96 mEq administered per orders. Re-check of K [...] placement of baclofen pump in 2007 in [place]. Due to lack of efficacy the baclofen [...] and Lipase were normal. Per her daycare shot hole shooter, may be related to administration of oxycodone as this has been issue in the past. Cannotexclude component of baclofen withdrawal, but less likely. No current concern for acute HANDER IN process. - Serial exams. Ensure daily BMs [...] although it may not have the best HANDER IN penetration unless meninges are actually inflamed. - [...] fluid only. MD called for antiemetic and OK tylenol. Zofran given when order receivedand med [...] PREVENTION: Assistance: Full assist, mom at bedside. bilingual teacher aide will be coming in today to [...] Burciaga MD - 05/21/2014 11:53 AM EST [facility] Operative Note Patient Name: Tana Shelton : [id number] MR#: [id number] Case Date: 05/20/2014 - 05/21/2014 Surgeon: Surgeon(s) [...] BOTH LEGS performed by YAS OLIVER at [facility] MA[facility] OR ??? Removal deep implant 08/15/2010 REMOVAL IMPLANT, DEEP, BRUNO performed by YAS OLIVER at [facility] MA[facility] OR ??? Osteotomy femur shaft/supracondy 08/15/2010 ??OSTEOTOMY, FEMUR SHAFT OR SUPRACONDYLAR W/O FIXATION performed by YAS OLIVER at [facility] MA[facility] OR ??? Remove spinal canal catheter N/A 05/11/2014 REMOVAL OF INTRATHECAL OR EPIDURAL CATHETER performed by Jamaal Samuel MD at [facility] MA[facility] OR ??? Remove infusn device/pump N/A 05/11/2014 REMOVAL OF SPINE INFUSION PUMP performed by Jamaal Samuel MD at [facility] MA[facility] OR No family history on file. [...] mcL Appearance UA Hazy (*) Clear Spec [place] UA 1.026 1.002 - 1.030 Color UA [...] TANA SHELTON Ordered By: Freddy BURCIAGA MR#: [id number] LOC: OR /Sex: 1995 (18 years), Female PROCEDURE: Tissue Culture SOURCE: Back COLLECTED: 05/20/2014 20:20 FREE TEXT SOURCE: Lumbar Wound Culture STARTED: 05/20/2014 22:13 STAINS / PREPARATIONS Gram Stain Report Verified:05/20/2014 22:28 Few White Blood Cells seen No microorganisms seen. TISSUE CULTURE Result Value Range Tissue Culture Value: Patient Name: TANA SHELTON Ordered By: Freddy BURCIAGA MR#: [id number] LOC: OR /Sex: 1995 (18 years), Female [...] EDT TH Visit (TeleHealth) [place] [phone] Lilli Joy APRN [facility] [place] [address] 12/03/2023 12:30 PM EDT Office [place] [phone] Hollie Ambriz MD [facility] [place] [address] 12/03/2023 2:30 PM EDT Hospital [place] [phone] Andrade Melvin MD [facility] [place] [address] Pending Results Name Type Priority Associated Diagnoses [...] REQUIRING LAMINECTOMY Routine 05/20/2014 10:22 PM EST RISK ADJUSTMENT SPECIALIST CULTURE Routine 5 10:01 PM EST ANAEROBIC [...] * (ABNORMAL) Hemogram (06/02/2014 5:55 AM EST) [facility] WBC 7.4 4.0 - 10.0 x10(3)/mcL CERNER [...] S Alek Burciaga MD HEMATOLOGY ORDERABLE S [facility] * (ABNORMAL) Basic Metabolic Panel (non-fasting) (06/02/2014 5:55 AM EST) [facility] Glucose Lvl 75 60 - 199 mg/dL CERNER MILLENNIUM Comment:Diabetes: >=200 mg/d L plus symptoms BUN 5(L) 8 - 18 mg/dL CERNER MILLENNIUM Creatinine 0.30(L) 0.70 - 1.20 mg/dL CERNER MILLENNIUM Comment: Please note that the pediatric reference intervals supplied above were not validated at [facility]. Results from pediatric patients should be interpreted [...] the following links into your internet browser. [email or web address] Blood specimen (specimen) 06/02/2014 5:55 AM EST 06/02/2014 6:09 AM EST Narrative Resulting Agency Comment Spec In Lab S Alek Burciaga MD CHEMISTRY ORDERABLES Performing Organization Address [facility] de Phone Number [facility] * (ABNORMAL) Sedimentation rate (06/01/2014 12:40 PM EST) Sed Rate 46(H) 0 - 20 mm/hr CERNER MILLENNIUM Blood specimen (specimen) Venous Draw / Unknown 06/01/2014 12:40 PM EST 06/01/2014 12:48 PM EST Narrative Resulting Agency Comment Spec In Lab S Alek Burciaga MD HEMATOLOGY ORDERABLE S Performing Organization Address [facility] de Phone Number [facility] * High Sensitivity CRP (06/01/2014 12:40 [...] HEMATOLOGY ORDERABLE S LINDA TOMASENNIUM * (ABNORMAL) Basic Metabolic Panel (non-fasting) (06/01/2014 12:40 PM EST) [facility] Signature Glucose Lvl 95 60 - 199 mg/dL CERNER MILLENNIUM Comment:Diabetes: >=200 mg/d L plus symptoms BUN 4(L) 8 - 18 mg/dL CERNER MILLENNIUM Creatinine 0.38(L) 0.70 - 1.20 mg/dL CERNER MILLENNIUM Comment: Please note that the pediatric reference intervals supplied above were not validated at [facility]. Results from pediatric patients should be interpreted [...] the following links into your internet browser. [email or web address] Blood specimen (specimen) 06/01/2014 12:40 PM EST 06/01/2014 12:48 PM EST Narrative Resulting Agency Comment Spec In Lab S Alek Burciaga MD CHEMISTRY ORDERABLES [facility] * Differential, Automated (05/30/2014 6:50 AM EST) [...] Metabolic Panel (non-fasting) (05/30/2014 6:50 AM EST) [facility] Signature Glucose Lvl 82 60 - 199 mg/dL CERNER MILLENNIUM Comment:Diabetes: >=200 mg/d L plus symptoms BUN 4(L) 8 - 18 mg/dL CERNER MILLENNIUM Creatinine 0.29(L) 0.70 - 1.20 mg/dL CERNER MILLENNIUM Comment: Please note that the pediatric reference intervals supplied above were not validated at [facility]. Results from pediatric patients should be interpreted [...] the following links into your internet browser. [email or web address] Blood specimen (specimen) 05/30/2014 6:50 AM EST [...] MD HEMATOLOGY ORDERABLE S Performing Organization Address [facility] Co de Phone Number CERNER [...] intervals supplied above were not validated at [facility]. Results from pediatric patients should be interpreted [...] the following links into your internet browser. [email or web address] Blood specimen (specimen) 05/29/2014 7:13 AM EST [...] MD HEMATOLOGY ORDERABLE S Performing Organization Address [facility] Co de Phone Number [facility] * Vancomycin, trough (05/28/2014 9:00 AM EST) Vanc Trough 16.5 mg/L [facility] MILLENNIUM Comment: Therapeutic range for complicated infections [...] Burciaga MD CHEMISTRY ORDERABLES Performing Organization Address [facility] de Phone Number [facility] * (ABNORMAL) Basic Metabolic Panel (non-fasting) (05/28/2014 9:00 AM EST) Glucose Lvl 121 60 - 199 mg/dL [facility] MILLENNIUM Comment:Diabetes: >=200 mg/d L plus symptoms BUN 4(L) 8 - 18 mg/dL CERNER MILLENNIUM Creatinine 0.29(L) 0.70 - 1.20 mg/dL CERNER MILLENNIUM Comment: Please note that the pediatric reference intervals supplied above were not validated at [facility]. Results from pediatric patients should be interpreted [...] the following links into your internet browser. [email or web address] Blood specimen (specimen) 05/28/2014 9:00 AM EST [...] intervals supplied above were not validated at [facility]. Results from pediatric patients should be interpreted [...] the following links into your internet browser. [email or web address] Blood specimen (specimen) 05/27/2014 5:30 AM EST 05/27/2014 5:39 AM EST Narrative Resulting Agency Comment Spec In Lab Authorizing Provider Result Bala Burciaga MD CHEMISTRY ORDERABLES LINDA BASHIR * Anaerobic Culture (05/26/2014 5:30 PM EST) Anaerobic Culture ? Patient Name: TANA SHELTON ? Ordered By: Freddy BURCIAGA ? MR#: [id number] ?LOC: ??[place] ? /Sex: ??1995 (18 years), [...] ? Ordered By: Freddy BURCIAGA ? MR#: [id number] ?LOC: ??[place] ? /Sex: ??1995 (18 years), [...] S ? Patient: TANA SHELTON ? MR#: [id number] ? S=Susceptible ??I=Intermediate ??R=Resistant ??NA=Not Applicable ? [...] ? Ordered By: Freddy BURCIAGA ? MR#: [id number] ?LOC: ??[place] ? /Sex: ??1995 (18 years), ? Female ? PROCEDURE: Anaerobic Culture ?SOURCE: Other ? COLLECTED: 05/26/2014 17:30 ?FREE TEXT SOURCE: Anterior Flank ? STARTED: 05/26/2014 17:41 ? FINAL REPORT ? Final Report ? Verified:2014 12:54 ? No anaerobic organisms isolated ? PRELIMINARY REPORT ? Preliminary Report ? Verified:2014 12:08 ? No anaerobic organisms isolated to date ? [facility] Specimen of unknown material (specimen) 05/26/2014 5:30 PM EST 05/26/2014 5:41 PM EST Comment:ANTERIOR FLANK Narrative Resulting Agency Comment Spec In Lab S Alek Burciaga MD MICROBIOLOGY - GENER AL ORDERABLES Performing Organization Address City/State/ZIP Co nm Phone Number [facility] * Tissue culture (05/26/2014 5:30 PM EST) Tissue Culture ? Patient Name: TANA SHELTON ? Ordered By: Freddy BURCIAGA ? MR#: [id number] ?LOC: ??[place] ? /Sex: ??1995 (18 years), [...] plates. ? Patient: TANA SHELTON ? MR#: [id number] ? SUSCEPTIBILITY RESULTS ? Coagulase negative Staphylococcus [...] (1) ? Gentamicin is not appropriate for Travis-therapy. ? (2) ? Penicillin resistant, Nafcillin susceptible [...] ? Ordered By: Freddy BURCIAGA ? MR#: [id number] ?LOC: ??[place] ? /Sex: ??1995 (18 years), [...] ? Ordered By: Freddy BURCIAGA ? MR#: [id number] ?LOC: ??[place] ? /Sex: ??1995 (18 years), [...] GENER AL ORDERABLES Performing Organization Address [facility] de Phone Number LINDA BASHIR * Antibody screen (05/26/2014 12:40 PM EST) Ab Screen Interp Negative LINDA KEMPIUM Expires at [id number] on: [id number] LINDA BASHIR Blood specimen (specimen) 05/26/2014 12:40 PM EST 05/26/2014 12:59 PM EST Narrative Resulting Agency Comment Spec In Lab S Alek Burciaga MD BLOOD BANK LAB ORDER MYRANDA Performing Organization Address [facility] de Phone Number LINDA BASHIR * ABO/Rh Typing (05/26/2014 12:40 PM EST) ABORH Type O Pos LINDA BASHIR Blood specimen (specimen) 05/26/2014 12:40 PM EST 05/26/2014 12:59 PM EST Narrative Resulting Agency Comment Spec In Lab S Alek Burciaga MD BLOOD BANK LAB ORDER MYRANDA Performing Organization Address [facility] de Phone Number LINDA BASHIR * [...] S Alek Burciaga MD HEMATOLOGY ORDERABLE S [facility] MILLENNIUM * (ABNORMAL) Basic Metabolic Panel (non-fasting) (05/26/2014 4:15 AM EST) Glucose Lvl 88 60 - 199 mg/dL CERNER MILLENNIUM Comment:Diabetes: >=200 mg/d L plus symptoms BUN 6(L) 8 - 18 mg/dL CERNER MILLENNIUM Creatinine 0.28(L) 0.70 - 1.20 mg/dL CERNER MILLENNIUM Comment: Please note that the pediatric reference intervals supplied above were not validated at [facility]. Results from pediatric patients should be interpreted [...] the following links into your internet browser. [email or web address] Blood specimen (specimen) 05/26/2014 4:15 AM EST 05/26/2014 4:35 AM EST Narrative Resulting Agency Comment Spec In Lab Authorizing Provider Result Bala Barronis MD CHEMISTRY ORDERABLES LINDA BASHIR * Place PICC Line: Contact Vascular Access Page [phone] (05/25/2014 4:01 PM EST) Narrative Iron Aden [...] to the planned procedure. Hand Hygiene: The lens inserter did perform hand hygiene prior to line insertion. Catheter type: PICC Lot number: [id number] Procedure Technique: Skin was prepped with chlorhexidine. [...] Procedure Comments: NONE Iron Aden RN 05/25/2014 Freddy Burciaga MD PROCEDURE/MINOR SURG ICAL ORDERABLES * [...] of the haseeb. ?? Procedure Note Barron Dosrey MD - 05/25/2014 EXAMINATION: PLACEMENT PICC LINE [...] focal. COMPARISON: Scoliosis radiographs from 12/16/2011 FINDINGS: Dog Boarder views demonstrate severe rightward scoliotic deformity centered [...] No gross collections in the cervical spine. Dog Boarder coronal image 8 of series 8 demonstrates [...] inf,focal. COMPARISON: Scoliosis radiographs from 12/16/2011 FINDINGS: Dog Boarder views demonstrate severe rightward scoliotic deformity centered [...] abnormalities. No grosscollections in the cervical spine. Dog Boarder coronal image 8 of series 8 demonstrates [...] reviewed by the attending Freddy Burciaga MD [facility] [place] ORDER[place]LES * MRI thoracic spine without contrast (05/25/2014 1:26 PM EST) Anatomical Region Laterality Modality T-spine Magnetic Resonan ce 05/25/2014 1:26 PM EST Narrative 05/25/2014 4:10 PM EST See accession #[id number] for dictation of this study. This report was reviewed by Andrade Rebolledo MD at 05/25/2014 4:05 PM Film and interpretation reviewed by the attending Procedure Note Andrade Roth MD - 05/25/2014 See accession #[id number] for dictation of this study. This report was reviewed by Andrade Rebolledo MD at 05/25/2014 4:05 PM Film and interpretation reviewed by the attending Alek Sinha APRN [facility] [place] ORDERABLES * Differential, Automated (05/25/2014 5:00 [...] S Performing Organization Address City/[facility]/ZIP Co de Phone Number LINDA TOMASENNIUM * (ABNORMAL) Hemogram (05/25/2014 5:00 [...] intervals supplied above were not validated at [facility]. Results from pediatric patients should be interpreted [...] the following links into your internet browser. [email or web address] Blood specimen (specimen) 05/25/2014 5:00 AM EST 05/25/2014 5:19 AM EST Narrative Resulting Agency Comment Spec In Lab S Alek Burciaga MD CHEMISTRY ORDERABLES [facility] * Differential, Automated (05/24/2014 12:42 PM EST) [...] Metabolic Panel (non-fasting) (05/24/2014 12:42 PM EST) [facility] Glucose Lvl 78 60 - 199 mg/dL CERNER MILLENNIUM Comment:Diabetes: >=200 mg/d L plus symptoms BUN 4(L) 8 - 18 mg/dL CERNER MILLENNIUM Comment:result rechecked-[facility] Creatinine 0.39(L) 0.70 - 1.20 mg/dL CERNER MILLENNIUM Comment: Please note that the pediatric reference intervals supplied above were not validated at [facility]. Results from pediatric patients should be interpreted [...] the following links into your internet browser. [email or web address] Blood specimen (specimen) 05/24/2014 12:42 PM EST 05/24/2014 12:42 PM EST Narrative Resulting Agency Comment Spec In Lab S Alek Burciaga MD CHEMISTRY ORDERABLES Performing Organization Address [facility] de Phone Number CERNER MILLENNIUM * Vancomycin, trough (05/24/2014 12:29 PM EST) [...] Burciaga MD CHEMISTRY ORDERABLES Performing Organization Address [facility] Co de Phone Number CERNER [...] Burciaga MD CHEMISTRY ORDERABLES Performing Organization Address [facility] Co de Phone Number CERNER [...] In Lab Freddy Burciaga MD CHEMISTRY ORDERABLES CERNER MILLENNIUM * (ABNORMAL) Phosphorus (05/22/2014 12:45 PM EST) Phosphorus 2.2(L) 2.5 - 4.5 mg/dL CERNER MILLENNIUM Blood specimen (specimen) Venous Draw / Unknown 05/22/2014 12:45 PM EST 05/22/2014 1:03 PM EST Narrative Resulting Agency Comment Spec In Lab Lucho Smith MD CHEMISTRY ORDERABLES Performing Organization Address [facility] Co de Phone Number [facility] * Magnesium (05/22/2014 12:45 PM EST) Magnesium 0.69 0.69 - 1.07 mmol/L [facility] Blood specimen (specimen) Venous Draw / Unknown 05/22/2014 12:45 PM EST 05/22/2014 1:03 PM EST Narrative Resulting Agency Comment Spec In Lab Lucho Smith MD CHEMISTRY ORDERABLES Performing Organization Address [facility] de Phone Number [facility] * Lipase (05/22/2014 12:45 PM EST) Lipase 44 0 - 60 unit/L [facility] Blood specimen (specimen) 05/22/2014 12:45 PM EST 05/22/2014 1:03 PM EST Narrative Resulting Agency Comment Spec In Lab Lucho Smith MD CHEMISTRY ORDERABLES Performing Organization Address [facility] de Phone Number [facility] * Amylase (05/22/2014 12:45 PM EST) Amylase 89 28 - 100 unit/L [facility] Blood specimen (specimen) 05/22/2014 12:45 PM EST 05/22/2014 1:03 PM EST Narrative Resulting Agency Comment Spec In Lab Lucho Smith MD CHEMISTRY ORDERABLES Performing Organization Address [facility] Co de Phone Number [facility] VIRIDIANAIUM * (ABNORMAL) Comprehensive metabolic panel (non-fasting) (05/22/2014 12:45 PM EST) Glucose Lvl 81 60 - 199 mg/dL [facility] Comment:Diabetes: >=200 mg/d L plus symptoms BUN 2(L) 8 - 18 mg/dL [facility] Creatinine 0.31(L) 0.70 - 1.20 mg/dL CERNER MILLENNIUM Comment: Please note that the pediatric reference intervals supplied above were not validated at [facility]. Results from pediatric patients should be interpreted [...] the following links into your internet browser. [email or web address] Blood specimen (specimen) 05/22/2014 12:45 PM EST [...] MILLENNIUM Hemoglobin 11.6 11.2 - 15.7 gm/dL [facility] MILLENNIUM Hematocrit 35.0 34.0 - 45.0 % [facility] MILLENNIUM MCV 86.8 79.0 - 94.0 fL [facility] MILLENNIUM MCH 28.8 26.6 - 32.2 pg CERNER MILLENNIUM MCHC 33.1 32.0 - 36.5 gm/dL [facility] MILLENNIUM Platelets 342 145 - 370 x10(3)/mcL [facility] MILLENNIUM RDWSD 45.2 35.0 - 46.0 fL [facility] MILLENNIUM RDWCV 14.2 10.9 - 14.4 % [facility] MILLENNIUM MPV 10.7 9.0 - 12.0 fL [facility] MILLENNIUM Blood specimen (specimen) 05/22/2014 6:10 AM EST 05/22/2014 6:22 AM EST Narrative Resulting Agency Comment Spec In Lab S Alek Burciaga MD HEMATOLOGY ORDERABLE S Performing Organization Address City/[facility]/ZIP Co de Phone Number [facility] * Vancomycin, trough (05/22/2014 6:10 AM EST) Vanc Trough 6.1 mg/L [facility] Comment: Therapeutic range for complicated infections [...] Burciaga MD CHEMISTRY ORDERABLES Performing Organization Address [facility] Co de Phone Number [facility] * (ABNORMAL) Basic Metabolic Panel (non-fasting) (05/22/2014 6:10 AM EST) Glucose Lvl 86 60 - 199 mg/dL CERNER MILLENNIUM Comment:Diabetes: >=200 mg/d L plus symptoms BUN 3(L) 8 - 18 mg/dL CERNER MILLENNIUM Creatinine 0.27(L) 0.70 - 1.20 mg/dL CERNER MILLENNIUM Comment: Please note that the pediatric reference intervals supplied above were not validated at [facility]. Results from pediatric patients should be interpreted [...] the following links into your internet browser. [email or web address] Blood specimen (specimen) 05/22/2014 6:10 AM EST [...] S Alek Burciaga MD HEMATOLOGY ORDERABLE S [facility] MILLENNIUM * (ABNORMAL) Basic Metabolic Panel (non-fasting) (05/21/2014 4:23 AM EST) Glucose Lvl 107 60 - 199 mg/dL CERNER MILLENNIUM Comment:Diabetes: >=200 mg/d L plus symptoms BUN 3(L) 8 - 18 mg/dL CERNER MILLENNIUM Comment:result rechecked- ll u Creatinine 0.30(L) 0.70 - 1.20 mg/dL CERNER MILLENNIUM Comment: Please note that the pediatric reference intervals supplied above were not validated at [facility]. Results from pediatric patients should be interpreted [...] the following links into your internet browser. [email or web address] Blood specimen (specimen) 05/21/2014 4:23 AM EST 05/21/2014 4:38 AM EST Narrative Resulting Agency Comment Spec In Lab Freddy Burciaga MD CHEMISTRY ORDERABLES LINDA BASHIR * Charge Entry Clerk Culture (05/20/2014 10:01 PM EST) Charge Entry Clerk Culture ? Patient Name: TANA SHELTON ? Ordered By: Freddy BURCIAGA ? MR#: [id number] ?LOC: ??[place] ? /Sex: ??1995 (18 years), ? Female ? PROCEDURE: Charge Entry Clerk Culture ?SOURCE: Other ? COLLECTED: 05/20/2014 22:01 [...] ? Ordered By: Freddy BURCIAGA ? MR#: [id number] ?LOC: ??[place] ? /Sex: ??1995 (18 years), [...] ? Ordered By: Freddy BURCIAGA ? MR#: [id number] ?LOC: ??[place] ? /Sex: ??1995 (18 years), [...] ? Patient: TANA SHELTON S ? MR#: [id number] ? S=Susceptible ??I=Intermediate ??R=Resistant ??NA=Not Applicable ? [...] ? Ordered By: Freddy BURCIAGA ? MR#: [id number] ?LOC: ??[place] ? /Sex: ??1995 (18 years), [...] ? Ordered By: Freddy BURCIAGA ? MR#: [id number] ?LOC: ??[place] ? /Sex: ??1995 (18 years), [...] MD MICROBIOLOGY - GENER AL ORDERABLES [facility] * Urine culture First Catch Urine (05/20/2014 6:46 PM EST) Urine Culture ? Patient Name: TANA SHELTON ? Ordered By: BELKIS LOUIE ? MR#: [id number] ?LOC: ??[place] ? /Sex: ??1995 (18 years), ? Female ? PROCEDURE: Urine Culture ?SOURCE: U SCath ? COLLECTED: 05/20/2014 18:46 ? STARTED: 05/20/2014 [...] Appearance UA Hazy(A) Clear CERNER MILLENNIUM Spec [place] UA 1.026 1.002 - 1.030 CERNER MILLENNIUM [...] Louie MD URINE ORDERABLES Performing Organization Address [facility] Co de Phone Number LINDA BASHIR * L-Lactate2 Whole Blood (05/20/2014 6:17 PM EST) Lactate WB 1.6 0.5 - 2.2 mmol/L LINDA BASHIR Blood specimen (specimen) 05/20/2014 6:17 PM EST 05/20/2014 6:17 PM EST Belkis Louie MD CHEMISTRY ORDERABLES Performing Organization Address City/[facility] Co de Phone Number LINDA BASHIR * Blood culture (05/20/2014 6:00 PM EST) Blood Culture ? Patient Name: TANA SHELTON ? Ordered By: BELKIS LOUIE ? MR#: [id number] ?LOC: ??[place] ? /Sex: ??1995 (18 years), [...] - BLOOD ORDERABLES Performing Organization Address [facility] de Phone Number LINDA TOMASENNIUM * Green Tube HOLD (05/20/2014 5:15 PM EST) Green Hold Sample in lab. CERALIN TMOASENNIUM Blood specimen (specimen) Venous Draw / Unknown 05/20/2014 5:15 PM EST 05/20/2014 5:32 PM EST Belkis Louie MD CHEMISTRY ORDERABLES Performing Organization Address [facility] de Phone Number LINDA TOMASENNIUM * Differential, Automated (05/20/2014 5:15 PM [...] Lab Belkis Louie MD HEMATOLOGY ORDERABLE S LINAD BASHIR * Blood culture (05/20/2014 5:15 PM EST) Blood Culture ? Patient Name: TANA SHELTON ? Ordered By: BELKIS LOUIE ? MR#: [id number] ?LOC: ??[place] ? /Sex: ??1995 (18 years), ? Female ? PROCEDURE: Blood Culture ?SOURCE: Blood ? COLLECTED: 05/20/2014 17:15 ? BODY SITE: Left Hand ? STARTED: 05/20/2014 19:17 ?FREE TEXT SOURCE: Hold until eval ? FINAL REPORT ? Final Report ? [...] - BLOOD ORDERABLES Performing Organization Address [facility] Phone Number [facility] * Glucose, random (05/20/2014 5:15 PM EST) Glucose Lvl 81 60 - 199 mg/dL [facility] Comment:Diabetes: >=200 mg/d L plus symptoms Blood specimen (specimen) 05/20/2014 5:15 PM EST 05/20/2014 5:31 PM EST Narrative Resulting Agency Comment Spec In Lab Belkis Louie MD CHEMISTRY ORDERABLES Performing Organization Address [facility] Phone Number [facility] * (ABNORMAL) Creatinine (05/20/2014 5:15 PM EST) Creatinine 0.37(L) 0.70 - 1.20 mg/dL [facility] Comment: Please note that the pediatric reference intervals supplied above were not validated at [facility]. Results from pediatric patients should be interpreted in conjunction to the patient's age, height and muscle mass. Estimated GFR >60 >=60 [facility] Comment: This estimated GFR (eGFR) value [...] the following links into your internet browser. [email or web address] Blood specimen (specimen) 05/20/2014 5:15 PM EST 05/20/2014 5:31 PM EST Narrative Resulting Agency Comment Spec In Lab Belkis Louie MD CHEMISTRY ORDERABLES Performing Organization Address [facility] System/[facility] de Phone Number LINDA BASHIR * BUN (05/20/2014 5:15 PM EST) BUN 9 8 - 18 mg/dL CERNER MILLENNIUM Blood specimen (specimen) 05/20/2014 5:15 PM EST 05/20/2014 5:31 PM EST Narrative Resulting Agency Comment Spec In Lab Belkis Louie MD CHEMISTRY ORDERABLES Performing Organization Address [facility] Co de Phone Number LINDA [...] Louie MD CHEMISTRY ORDERABLES Performing Organization Address [facility] Co de Phone Number LINDA [...] Nely Boss, Indication for (Active or Suspected): HANDER IN/Meningitis Given 06/02/2014 5:57 AM EST 2 g 100 mL/hr Given 06/01/2014 10:41 PM EST 2 g 100 mL/hr Given 06/01/2014 2:10 PM EST 2 g 100 mL/hr cefTRIAXone (ROCEPHIN) 1g in dextrose 5% 50mL 1 g, Intravenous, ONCE, 1 dose, On 05/20/14 at 2315, Administer over 30 Minutes, Indication for (Active or Suspected): HANDER IN/Meningitis Given 05/21/2014 1:32 AM EST 1 g 100 mL/hr cefTRIAXone (ROCEPHIN) 2g in dextrose 5% 50mL 2,000 mg (2 g), Intravenous, EVERY 12 HOURS, First dose on 05/20/14 at 1000, Until Discontinued, Administer over 30 Minutes, Indication for (Active or Suspected): for HANDER IN/Meningitis Given 05/22/2014 10:59 AM EST 2,000 mg [...] 30 Minutes, Indication for (Active or Suspected): HANDER IN/Meningitis Given 05/22/2014 5:40 AM EST 500 mg [...] PRN, Starting on 05/22/14 at 0615, Until Thu05/22/14 at 0937, Nausea Given 05/22/2014 6:46 AM [...] (1 L), Intravenous, ONCE, 1 dose, On Thu05/20/14 at 1707 New Bag 05/20/2014 5:07 PM EST 1,000 mLs sodium chloride 0.9% infusion 50 mL/hr, Intravenous, CONTINUOUS, Starting on Thu05/20/14 at 2245, Until Thu05/22/14 at 0759, Recovery (Recovery-Hospital Unit) New 05/22/2014 12:47 AM EST 50 mL/hr 50 [...] Nely Boss, Indication for (Active or Suspected): HANDER IN/Meningitis 0616 (Given - Provider: Linsey Mcintyre RN)1446 (Given - Provider: Dolores Patino RN)2201 (Given - Provider: Lnisey Mcintyre RN) 0627 (Given - Provider: Linsey Mcintyre RN)1410 (Given - Provider: Tasha Yu)2240 (Given - Provider: Margot Monzon RN) 0557 [...] RN)2009 (Given - Provider: Margot Monzon RN) 08 (Given - Provider: Hedy Vazquez RN) diaZEPam [...] level., STAT 0138 (Given - Provider: Linsey Mcintyre, RN)0943 (Given - Provider: Dolores Patino RN)1758 (Given - Provider: Dolores Patino, EUNICE) 0142 (Given - Provider: Linsey Mcintyre RN)1027 [...] Dolores Patino RN)1702 (Given - Provider: Dolores Patino, EUNICE) bisacodyl (DULCOLAX) suppository 10 mg 10 mg, [...] Routine documented in this encounter Care Teams Land Surveying Survey Worker Relationship Specialty Start Date End Date Naina Lindsey MD [address] [facility] [place] [address] PCP - General 03/19/10 08/25/16 documented as of this encounter
--- OUTSIDE RECORDS SUMMARY | 2023-11-23 16:40 | XMS_ITS | Encounter Summary ---
[place] [address] Care Team Providers Care Ion Implant Machine Operator Name Role Phone Naina Lindsey MD Primary Care Provider [phone] Encounter Details Date Type Department Care Team (Late st Contact Info) Description 05/26/2014 4:16 PM EST Anesthesia [place] [id number] Buster Rajput MD [facility] [place] [address] Yury Kruse MD [facility] [place] [address] Anesthesia Record Procedure Summary Procedure Name Responsible [...] by Zakia Thomas RN 05/28/14 1400 by Rios, Allysen M, RN ETT Mask Ventilation: Kevin schwab (1); ETT Type: Cuffed, Oral; Mac Blade: [...] FEMORAL HEAD, BILATERAL performed by BARRERA OLIVER [facility] OR ??? Apply of hip casts, two legs 08/15/2010 CAST APPLICATION, HIP SPICA, BOTH LEGS performed by BARRERA OLIVER at [facility] OR ??? Removal deep implant 08/15/2010 REMOVAL IMPLANT, DEEP, BRUNO performed by BARRERA OLIVER at [facility] OR ??? Osteotomy femur shaft/supracondy 08/15/2010 ??OSTEOTOMY, FEMUR SHAFT OR SUPRACONDYLAR W/O FIXATION performed by BARRERA OLIVER at [facility] OR ??? Remove spinal canal catheter N/A 05/11/2014 REMOVAL OF INTRATHECAL OR EPIDURAL CATHETER performed by Jamaal Samuel MD at [facility] OR ??? Remove infusn device/pump N/A 05/11/2014 REMOVAL OF SPINE INFUSION PUMP performed by Jamaal Samuel MD at [facility] OR ? ? I&d, post spine, lumb/sacr/lumbosac N/A 05/20/2014 @I & D, OPEN, DEEP ABSCESS, LUMBAR, SACRAL, LUMBOSACRAL performed by Freddy Isbell MD at [facility] OR ??? Repr, dural/csf leak, not req laminectomy N/A 05/20/2014 @REPAIR DURAL\CSF LEAK,NOT REQUIRING LAMINECTOMY performed by Freddy Isbell MD at [facility] OR History Substance Use Topics ??? Smoking status: Never Smoker ??? Smokeless tobacco: Never Used Comment: NO SMOKERS IN THE HOME ??? Alcohol Use: No History Drug Use No Allergies Allergen Reactions ??? Fluoxetine Other (See Comments) HIVES, HEART RACES ??? Tegaderm [Transparent Dressings] Itching and Dermatitis Please use [id number] Medications: MAR and/or home medications have been [...] TH Visit (TeleHealth) Infectious Disease at [address] Lilli Joy APRN [facility] [address] 12/03/2023 12:30 PM EDT Office Visit Infectious Disease at [place] [phone] Hollie Ambriz MD [facility] [place] [address] 12/03/2023 2:30 PM EDT Hospital Encounter Radiology at [place] [phone] Andrade Melvin MD [facility] INTERVENTIONAL [place] [address] documented as of this encounter Visit Diagnoses [...] mg documented in this encounter Care Teams Ion Implant Machine Operator Relationship Specialty Start Date End Date Naina Lindsey MD [address] [place] [address] PCP - General 03/19/10 08/25/16 documented as of this encounter
--- OUTSIDE RECORDS SUMMARY | 2023-11-23 16:41 | XMS_ITS | Encounter Summary ---
Author Organization [facility] [place] [address] Care Team Providers Care Automation Qa Analyst Name Role Phone Naina Lindsey MD Primary Care Provider [phone] Reason for Visit * Reason Comments Post-op Problem Encounter Details Date Type Department Care Team (Late st Contact Info) Description 05/26/2014 4:30 PM EST - 05/26/2014 7:03 PM EST Surgery [place] [address] Freddy Burciaga MD [facility] [address] [place] [address] @I & D, OPEN, DEEP ABSCESS, LUMBAR, [...] Routine, Hospital Performed Vendor / contact information: [facility] Patient location post discharge: home Service requested: IV abx Start date: 05/26/2014 Responsible MD post discharge contact info: WILL Smith (Edit) Referral to Home Health - at DISCHARGE Routine, Clinic Performed Agency name and contact information: [facility] Patient location post discharge: home What services are requested: Registered Nurse, Home Health Aide, Physical Therapy, Occupational Therapy Start date: 05/26/2014 Responsible MD post discharge contact info: PCP PATIENT'S LOCATION: Tana Shelton [address] [place] [phone] (home) In discussion with the attending physician, it is certified that this patient is under their care and that they, or a Nurse Practitioner,Clinical Nurse specialist or Physician Poultry Dresser who is working directly with them, had [...] Continue with therapies OT: Continue with therapies COMPUTER AIDED DESIGN OPERATOR: Continue support HOME HEALTH CARE AGENCY: [facility]. PHONE: [phone] FAX: [phone] Start of care: 05/26/14 Please note that any additional orders needs or changes will need to be obtained from this patient's PCP: MD Coby BRAGG DR / [facility] [id number] All VNA agencies which cover the area of patient's residence have been reviewed, either verbally or in writing, and patient/family have chosen the home health care agency noted Emergency contact: After hours and weekends, call the [facility] paper products machine operator at and ask them to page the neurosurgery resident infusion therapy nurse. documented in this encounter Medications at Time [...] (AVS) and given to the patient or desk representative. 6) If VNA was ordered, I [...] Comments: Patient discharged to home with mom. Elemr Cotto RN * Elmer Flanagan MD - [...] 0.9% 50 mL Mini-Bag Plus 2 g GpyflftdgovX6G ??? baclofen 10 mg Oral Nightly ??? levonorgestrel-ethinyl estradiol 1 tablet Oral Daily ??? polyethylene glycol 17 g Oral Daily ??? sodium chloride 0.9 % 5 mL Intravenous BID ??? diaZEPam 5 mg Oral BID Continuous Infusions: ??? sodium chloride 0.9% with potassium chloride 20 mEq 50 mL/hr (06/01/14 6285) PRN Meds:acetaminophen OR acetaminophen, flu vaccine (36 [...] elevated HR this am S: Kenneth Rocco. [facility], [id number] singing ABCs and counting along with stretches [...] pt to d/chome with support and continued PT/OT/CARBON CAPTURE POWER PLANT OPERATOR/VNA services. Staff communication/Mobility Recommendations: Pt. Would [...] timed interventions: 30 minutes for TherEx-F Pager: [phone] Mary Joe, OT Occupational Therapy Rehabilitation Department * Isra Perez RN - 06/01/2014 2:43 PM EST Patient Name: Tana Shelton Patient Age: 18 y.o. Birthdate: 1995 Admit date: 05/20/2014 Attending Physician: Jamaal Samuel MD OFFICE OF CARE MANAGEMENT Farhana Perez RN Pager: [phone] CLINICAL PATIENT ACCESS REPRESENTATIVE PROGRESS NOTE e-DH reviewed. Report received from DEMI Sanchez. Patient continues to require acute inpatient care for the treatment of infection. Patient remains on triple abx while awaiting final cultures. [facility] and [facility] have been referred to for discharge. Met with patient's mother at bedside. Mom had multiple questions the other day regarding equipment for home. Mattress for hospital bed was ordered and delivered to home from [facility]. Tomasa Sling was ordered and is to be delivered by [facility] when it ships to [facility] warehouse. TLSO brace to be fitted by [place]. Mom also inquired about a new motorized wheelchair. Called [facility] in [place] to see if patient would qualify, left message with Oliver- the vocational rehabilitation supervisor for [facility]. Patient will need a assessment [...] 0.9% 50 mL Mini-Bag Plus 2 g GzdopjeydqoC1C ??? baclofen 10 mg Oral Nightly ??? [...] has recovered and I can review the [facility] records and films * Natividad [...] family in a single story home in [place], [place]. Pt's mother reports that there is no stair requirement, and that she has all necessary equipment. Stairs: 0 without a rail to enter Baseline Mobility: Completely dependent for all care, home nursing VNA services 3x/week, school-based PT/OT/CARBON CAPTURE POWER PLANT OPERATOR, pt due to receive a communication [...] than in previous treatment session, counting withthis screen writer during stretching Objective: Patient seen for [...] internal rotators, adductors ?? Pt helped this screen writer with opposite UE when performing stretching [...] session, playing with toys, playfully tricking this screen writer when counting during passive stretching, and [...] exercise Natividad Esqueda PT, DPT 05/31/2014 Pager: [phone] Physical Therapy Inpatient Rehabilitation Department * Nathalie [...] OF CARE MANAGEMENT Farhana Perez RN Pager: [phone] CLINICAL PATIENT ACCESS REPRESENTATIVE PROGRESS NOTE e-DH reviewed. Report received from DEMI Sanchez. Patient continues to require acute inpatient care for the treatment of infection. Patient is on triple abx. Patient needs a new mattress for her hospital bed at home. Patient's mother would like order placed with [employer]. Order pended and booking sent via [employer] Plan: CRC will continue to follow for [...] pt to d/chome with support and continued PT/OT/CARBON CAPTURE POWER PLANT OPERATOR/VNA services. Staff communication/Mobility Recommendations: Pt. Would [...] timed interventions: 45 minutes for TherEx Pager: [phone] Mary Joe OT Occupational Therapy Rehabilitation Department [...] 0.9% 50 mL Mini-Bag Plus 2 g OsxxvyiqsbqQ7X ??? baclofen 10 mg Oral Nightly ??? [...] OF CARE MANAGEMENT Farhana Perez RN Pager: [phone] CLINICAL PATIENT ACCESS REPRESENTATIVE PROGRESS NOTE e-DH reviewed. Report received from [...] as pt becomes available. Please contact this screen writer with any further questions or concerns. Thank you. Pager: [phone] Mary Joe OTR/L Occupational Therapy Inpatient Rehabilitation [...] family in a single story home in [place], [place]. Pt's mother reports that there is no stair requirement, and that she has all necessary equipment. Stairs: 0 without a rail to enter Baseline Mobility: Completely dependent for all care, home nursing VNA services 3x/week, school-based PT/OT/CARBON CAPTURE POWER PLANT OPERATOR, pt due to receive a communication [...] pt very smiley today, counting with this screen writer during stretching, showing off her favorite [...] exercise Natividad Esqueda PT, DPT 05/29/2014 Pager: [phone] Physical Therapy Inpatient Rehabilitation Department * Wai [...] not hesitate to page us on pager [phone] with further questions or concerns. Patient discussed with Dr. Wai Crabtree. Dimple Messina MD Fellow, Infectious Disease 05/29/2014 ID Staff: Discussed with Dr. Messina. Agree with current regimen. This will be a very difficult regimen at [facility] some further discussion is needed. [...] 0.9% 50 mL Mini-Bag Plus 2 g NlytwzpymahL6P ??? baclofen 10 mg Oral Nightly ??? [...] 0.9% 50 mL Mini-Bag Plus 2 g HlxfprtqpudW6M ??? baclofen 10 mg Oral Nightly ??? [...] CRC received call from EUNICE Hair, from [facility], [place] or Asking for status as they will follow her after discharge for IV antibiotic treatment. She will need an OPAT order faxed to above agency when she is ready for discharge as well as administration teaching for home. When ready for discharge, [facility] [employer] [facility] PHONE: [phone] FAX: [phone] will also need to be updated. Referral had been made by previous CRC. Covering pager #[phone] for pager #[phone]. * Darius Maguire T - 05/27/2014 8:23 [...] 0.9% 50 mL Mini-Bag Plus 2 g MqepqhsbszkJ2N ??? baclofen 10 mg Oral Nightly ??? [...] Dressing clean and dry Wound without fluctuance [address] Assessment/Plan:: 18 y.o. female s/p removal [...] family in a single story home in [place], [place]. Pt's mother reports that there is no stair requirement, and that she has all necessary equipment. Stairs: 0 without a rail to enter Baseline Mobility: Completely dependent for all care, home nursing VNA services 3x/week, school-based PT/OT/CARBON CAPTURE POWER PLANT OPERATOR, pt due to receive a communication [...] exercise Natividad Esqueda PT, DPT 05/26/2014 Pager: [phone] Physical Therapy Inpatient Rehabilitation Department * Freddy Burciaga MD - 05/26/2014 6:27 AM EST Neurosurgery - Inpatient Progress Note ID: Tana Shelton, 18 y.o. female s/p removal of retained hardware, washout of infection 05/20 POD 6 Interval Hx: -ALEKSANDRA -Neurologically stable Objective: Medications: Scheduled Meds: ??? cefTAZidime (FORTAZ) 2g vial attach to sodium chloride 0.9% 50 mL Mini-Bag Plus 2 g OieoammqfvuQ0J ??? baclofen 10 mg Oral Nightly ??? [...] (05/26) or when appropriate. Please page this screen writer if you have any questions, thank you. Natividad Esqueda PT Pager #[phone] Physical Therapy Inpatient Rehabilitation * aMry Joe, OT - 05/25/2014 2:30 PM EST Occupational Therapy Treatment Note Visit #: 2 Patient Dx: Tana Shelton is a 18 y.o. female patient of Fredyd Callahan MD, admitted on 05/20/2014 with h/o [...] pt to d/chome with support and continued PT/OT/CARBON CAPTURE POWER PLANT OPERATOR/VNA services. Spoke to CRC this about thoracic [...] timed interventions: 27 minutes for TherEx Pager: [phone] Mary Joe OT Occupational Therapy Rehabilitation Department [...] 0.9% 50 mL Mini-Bag Plus 2 g LjuumoazhnjE9M ??? baclofen 10 mg Oral Nightly ??? [...] of Care Management Farhana Perez RN Pager: [phone] Clinical Sensitized Paper Tester Home IV Antibiotic Therapy Referral Note. Report received from NeuroSurgery Team that patient will require continued home IV antibiotic therapy after discharge from the hospital. Met with patient/family to discuss vendor and visiting nurse choices for home IV antibiotic therapy. Reviewed Home Infusion Vendors and Home Health Agencies that serve patient???s address and accept patient???s insurance. Home Health Agency: Patient requested referral to [facility]. PHONE: [phone] FAX: [phone]. Referrals sent via edischarge. Home Infusion Vendor: Patient requested referral to [facility], [place] [phone] or Fax: . Referrals sent via edischarge. [...] 0.9% 50 mL Mini-Bag Plus 2 g YdydetyfgtcD8T ??? baclofen 10 mg Oral Nightly ??? [...] 0.9% 50 mL Mini-Bag Plus 2 g WxuynwdtjdbJ0X ??? baclofen 10 mg Oral Nightly ??? [...] PM EST Office of Care Management Clinical Sensitized Paper Tester Patient Name: Tana Shelton : 1995, 18 [...] None on File (x) HEALTH /PRESCRIPTION COVERAGE: [place] [facility] CURRENT HOME/COMMUNITY SERVICES/EQUIPMENT: DME: [facility] bed, wheelchair, tomasa lift, shower chair. Home Health Agency: [facility] PRIMARY CARE PHYSICIAN: NAINA LINDSEY MD [phone] POTENTIAL DISCHARGE NEEDS: Resume vna visits. Mother stated that she has [facility]na - RN and Aide currently. Waiting to confirm this and pt needs. Might need home IV antibx. TRANSPORTATION @ D/C: family PLAN: CRC will continue to monitor progress, follow for continuity of care and assist with discharge planning while hospitalized Lesly Jesus RN Office of Care Management Clinical Sensitized Paper Tester Covering for Farhana Chris [phone] Pager [phone] * Yandy Dasilva, PharmD - 05/22/2014 9:46 AM EST Clinical Pharmacist Note-[facility]anc Tana S Dirk [id number] 1995 Tana Barlowrd is a 18 y.o. [...] have. Alternately, during off-hours you may call [phone] to contact a pharmacist. Yandy Dasilva PHARMBenjamin Pager [phone] * Freddy Burciaga MD - 05/22/2014 6:59 [...] Clinically does not seem to be of SENIOR PRODUCT INTEGRITY ENGINEER origin. Continue triple antibiotics. ID consult. Cultures [...] given to Diana RN Peds. Transferred to [place] [phone] with transport services, RN + family members. Please call Anurag ICU-RN at [phone] with regards to any questions post transfer. [...] mcL Appearance UA Hazy (*) Clear Spec [place] UA 1.026 1.002 - 1.030 Color UA [...] TANA SHELTON Ordered By: Freddy BURCIAGA MR#: [id number] LOC: OR /Sex: 1995 (18 years), Female PROCEDURE: Tissue Culture SOURCE: Back COLLECTED: 05/20/2014 20:20 FREE TEXT SOURCE: Lumbar Wound Culture STARTED: 05/20/2014 22:13 STAINS / PREPARATIONS Gram Stain Report Verified:05/20/2014 22:28 Few White Blood Cells seen No microorganisms seen. TISSUE CULTURE Result Value Ref Range Tissue Culture Value: Patient Name: TANA SHELTON Ordered By: EVITAFreddy IRENE MR#: [id number] LOC: OR /Sex: 1995 (18 years), Female [...] II initiated 0040: Report given to Jenn SWING GRINDER info reviewed/questions answered, pt ready for transfer [...] to the planned procedure. Hand Hygiene: The dairy store manager did perform hand hygiene prior to line insertion. Catheter type: PICC Lot number: [id number] Procedure Technique: Skin was prepped with chlorhexidine. [...] warm and was flushed. They called the infusion therapy nurse neurosurgeon, who advised that they come to [...] FEMORAL HEAD, BILATERAL performed by YAS OLIVER [facility] MAIN OR ??? Apply of hip casts, two legs 08/15/2010 CAST APPLICATION, HIP SPICA, BOTH LEGS performed by YAS OLIVER at [facility] MAIN OR ??? Removal deep implant 08/15/2010 REMOVAL IMPLANT, DEEP, BRUNO performed by YAS OLIVER at [facility] MAIN OR ??? Osteotomy femur shaft/supracondy 08/15/2010 ??OSTEOTOMY, FEMUR SHAFT OR SUPRACONDYLAR W/O FIXATION performed by YAS OLIVER at [facility] MAIN OR ??? Remove spinal canal catheter N/A 05/11/2014 REMOVAL OF INTRATHECAL OR EPIDURAL CATHETER performed by Jamaal Samuel MD at [facility] MAIN OR ??? Remove infusn device/pump N/A 05/11/2014 REMOVAL OF SPINE INFUSION PUMP performed by Jamaal Samuel MD at [facility] MAIN OR Medications: No current facility-administered [...] stepfather Tobacco exposure:No Day care/year in school: [employer] Physical Exam: Vitals: Patient Vitals for [...] mcL Appearance UA Hazy (*) Clear Spec [place] UA 1.026 1.002 - 1.030 Color UA [...] pump in 2007 at the [facility]. Mother feels that the pump [...] Size requested: twin bed Vendor Name/Contact information: [place] [facility] (Edit) Referral for Outpatient Antibiotics Routine, Hospital Performed Vendor / contact information: [facility] Patient location post discharge: home Service requested: IV abx Start date: 05/26/2014 Responsible MD post discharge contact info: PCP New (Edit) Referral to Home Health - at DISCHARGE Routine, Clinic Performed Agency name and contact information: [facility] Patient location post discharge: home What services are requested: Registered Nurse, Home Health Aide, Physical Therapy, Occupational Therapy Start date: 06/06/2014 Responsible MD post discharge contact info: PCP PATIENT'S LOCATION: Tana Shelton [address] [place] [phone] (home) In discussion with the attending physician, it is certified that this patient is under their care and that they, or a Nurse Practitioner,Clinical Nurse specialist or Physician Poultry Dresser who is working directly with them, had [...] Continue with therapies OT: Continue with therapies COMPUTER AIDED DESIGN OPERATOR: Continue support HOME HEALTH CARE AGENCY: [facility] PHONE: [phone] FAX: [phone] Start of care: 05/26/14 Please note that any additional orders needs or changes will need to be obtained from this patient's PCP: MD Coby BRAGG DR / [place] [address] All VNA agencies which cover the area of patient's residence have been reviewed, either verbally or in writing, and patient/family have chosen the home health care agency noted Emergency contact: After hours and weekends, call the [facility] paper products machine operator at and ask them to page the neurosurgery resident infusion therapy nurse. * Plan of Care - Margot Monzon [...] yo. Supervision: Continuous; Moraima. Fannie at home lawn caretaker at bedside this morning ; Mom arrived [...] (Interventions Implemented as Appropriate) 05/25/14 0527 05/26/14 7855 Plan of Care Review Plan of Care [...] AM EST Clinical Pharmacist Note-Vancomycin Tana Shelton [id number] 1995 Tana Shelton is a 18 y.o. [...] contact a pharmacist. Elmer Tobin, [place] Pager [phone] * Plan of Care - Leana Hicks [...] Outcome: Ongoing (Interventions Implemented as Appropriate) 05/27/14 2029 Infection, Risk/Actual (Adult, Obstetrics) Infection Prevention/Resolution/Control making progress toward outcome Problem: Fall/Trauma/Injury Risk (Pediatric) Goal: Identify Signs and Symptoms and Related Risk Factors Signs and symptoms and related risk factors are identified upon initiation of Human Response Clinical Practice Guideline (CPG) Outcome: Outcome (s) achieved Date Met: 05/27/14 05/22/14202905/25/14 703 Fall/Trauma/Injury Risk Personal Related Risk Factors (Fall/Trauma/Injury [...] Burciaga MD - 05/26/2014 4:52 PM EST [facility] Operative Note Patient Name: Tana Shelton : [id number] MR#: [id number] Case Date: 05/26/2014 Surgeon: Surgeon(s) and Role: [...] MD 05/26/2014 * Plan of Care - Оьлга Flores RN - 05/26/2014 4:56 AM EST [...] (Interventions Implemented as Appropriate) 05/22/14 0634 05/24/14 5654 Discharge Needs Assessment Concerns to be Addressed [...] Health Knowledge, Opportunity for Enhanced (Adult, NICU, [place], Obstetrics, Pediatric) Goal: Identify Signs and Symptoms and Related Risk Factors Signs and symptoms and related risk factors are identified upon initiation of Human Response Clinical Practice Guideline (CPG) Outcome: Ongoing (Interventions Implemented as Appropriate) * Plan of Care - Carisa Godwin RN - 05/25/2014 8:02 AM EST Problem: Health Knowledge, Opportunity for Enhanced (Adult, NICU, [place], Obstetrics, Pediatric) Goal: Knowledgeable about Health Subject/Topic Patient will demonstrate the desired outcomes. Outcome: Outcome (s) achieved Date Met: 05/25/14 05/25/14 0802 Health Knowledge, Opportunity for Enhanced (Adult, NICU, [place], Obstetrics, Pediatric) Knowledgeable about Health Subject/Topic achieves [...] bedside;lighting adjusted for task/safety;low bed;environmental modification 05/25/14 0508 Musculoskeletal Interventions Activity/Level of Assistance -- Self-Care [...] Outcome: Ongoing (Interventions Implemented as Appropriate) 05/24/14 1647 Plan of Care Review Plan of Care [...] HEAD, BILATERAL performed by YAS OLIVER [facility] OR ??? Apply of hip casts, two legs 08/15/2010 CAST APPLICATION, HIP SPICA, BOTH LEGS performed by YAS OLIVER at [facility] OR ??? Removal deep implant 08/15/2010 REMOVAL IMPLANT, DEEP, BRUNO performed by YAS OLIVER at [facility] OR ??? Osteotomy femur shaft/supracondy 08/15/2010 ??OSTEOTOMY, FEMUR SHAFT OR SUPRACONDYLAR W/O FIXATION performed by YAS OLIVER at [facility] OR ??? Remove spinal canal catheter N/A 05/11/2014 REMOVAL OF INTRATHECAL OR EPIDURAL CATHETER performed by Jamaal Samuel MD at [facility] OR ??? Remove infusn device/pump N/A 05/11/2014 REMOVAL OF SPINE INFUSION PUMP performed by Jamaal Samuel MD at [facility] OR ? ? I&d, post spine, lumb/sacr/lumbosac N/A 05/20/2014 @I & D, OPEN, DEEP ABSCESS, LUMBAR, SACRAL, LUMBOSACRAL performed by Freddy Burciaga MD at [facility] OR ??? Repr, dural/csf leak, not req laminectomy N/A 05/20/2014 @REPAIR DURAL\CSF LEAK,NOT REQUIRING LAMINECTOMY performed by Freddy Burciaga MD at [facility] OR Social and Developmental History: Patient lives with her family in a single level home in [place], [place]. Pt's mother reports that their home [...] has an older sister who lives in [place] and 3 younger brothers. She likes to [...] RN and mom assist. Feeding: per mom: HAVASUPAI assist for use of utensils; not observed [...] to d/c home with support and continued PT/OT/CARBON CAPTURE POWER PLANT OPERATOR/VNA services. Spoke with CRC about consultfor [...] you for this occupational therapy consult. Pager: [phone] Mary Joe OT 05/24/2014 Occupational Therapy Rehabilitation [...] HEAD, BILATERAL performed by YAS OLIVER [facility] OR ??? Apply of hip casts, two legs 08/15/2010 CAST APPLICATION, HIP SPICA, BOTH LEGS performed by YAS OLIVER at [facility] OR ??? Removal deep implant 08/15/2010 REMOVAL IMPLANT, DEEP, BRUNO performed by YAS OLIVER at [facility] OR ??? Osteotomy femur shaft/supracondy 08/15/2010 ??OSTEOTOMY, FEMUR SHAFT OR SUPRACONDYLAR W/O FIXATION performed by YAS OLIVER at [facility] OR ??? Remove spinal canal catheter N/A 05/11/2014 REMOVAL OF INTRATHECAL OR EPIDURAL CATHETER performed by Jamaal Samuel MD at [facility] OR ??? Remove infusn device/pump N/A 05/11/2014 REMOVAL OF SPINE INFUSION PUMP performed by Jamaal Samuel MD at [facility] OR ? ? I&d, post spine, lumb/sacr/lumbosac N/A 05/20/2014 @I & D, OPEN, DEEP ABSCESS, LUMBAR, SACRAL, LUMBOSACRAL performed by Freddy Burciaga MD at [facility] OR ??? Repr, dural/csf leak, not req laminectomy N/A 05/20/2014 @REPAIR DURAL\CSF LEAK,NOT REQUIRING LAMINECTOMY performed by Freddy Burciaga MD at [facility] MAIN OR Social History: Patient lives with her family in a single story home in [place], [place]. Pt's mother reports that there is no stair requirement, and that she has all necessary equipment. Stairs: 0 without a rail to enter Baseline Mobility: Completely dependent for all care, home nursing VNA services 3x/week, school-based PT/OT/CARBON CAPTURE POWER PLANT OPERATOR, pt due to receive a communication [...] appropriate and joins in counting with this screen writer while stretching Objective: Pt seen for [...] minutes Natividad Esqueda PT, DPT 05/24/2014 Pager: [phone] Physical Therapy Inpatient Rehabilitation Department * Plan [...] based on it's ability to penetrate the SENIOR PRODUCT INTEGRITY ENGINEER. We need todiscuss whether to pursue an [...] to 40 mEq. One dose of IV xuqlpsltr34 mEq administered per orders. Re-check of K [...] placement of baclofen pump in 2007 in [place]. Due to lack of efficacy the baclofen [...] and Lipase were normal. Per her daycare knitted goods shaper, may be related to administration of oxycodone as this has been issue in the past. Cannotexclude component of baclofen withdrawal, but less likely. No current concern for acute SENIOR PRODUCT INTEGRITY ENGINEER process. - Serial exams. Ensure daily BMs [...] although it may not have the best SENIOR PRODUCT INTEGRITY ENGINEER penetration unless meninges are actually inflamed. - [...] fluid only. MD called for antiemetic and DE tylenol. Zofran given when order receivedand med [...] PREVENTION: Assistance: Full assist, mom at bedside. computer lab aide will be coming in today to [...] Burciaga MD - 05/21/2014 11:53 AM EST [facility] Operative Note Patient Name: Tana Shelton : [id number] MR#: [id number] Case Date: 05/20/2014 - 05/21/2014 Surgeon: Surgeon(s) [...] FEMORAL HEAD, BILATERAL performed by YAS OLIVER [facility] MAIN OR ??? Apply of hip casts, two legs 08/15/2010 CAST APPLICATION, HIP SPICA, BOTH LEGS performed by YAS OLIVER at [facility] MAIN OR ??? Removal deep implant 08/15/2010 REMOVAL IMPLANT, DEEP, BRUNO performed by YAS OLIVER at [facility] MAIN OR ??? Osteotomy femur shaft/supracondy 08/15/2010 ??OSTEOTOMY, FEMUR SHAFT OR SUPRACONDYLAR W/O FIXATION performed by YAS OLIVER at [facility] MAIN OR ??? Remove spinal canal catheter N/A 05/11/2014 REMOVAL OF INTRATHECAL OR EPIDURAL CATHETER performed by Jamaal Samuel MD at [facility] MAIN OR ??? Remove infusn device/pump N/A 05/11/2014 REMOVAL OF SPINE INFUSION PUMP performed by Jamaal Samuel MD at [facility] MAIN OR No family history on [...] mcL Appearance UA Hazy (*) Clear Spec [place] UA 1.026 1.002 - 1.030 Color UA [...] TANA SHELTON Ordered By: Freddy BURCIAGA MR#: [id number] LOC: OR /Sex: 1995 (18 years), Female PROCEDURE: Tissue Culture SOURCE: Back COLLECTED: 05/20/2014 20:20 FREE TEXT SOURCE: Lumbar Wound Culture STARTED: 05/20/2014 22:13 STAINS / PREPARATIONS Gram Stain Report Verified:05/20/2014 22:28 Few White Blood Cells seen No microorganisms seen. TISSUE CULTURE Result Value Range Tissue Culture Value: Patient Name: TANA SHELTON Ordered By: Freddy BURCIAGA MR#: [id number] LOC: OR /Sex: 1995 (18 years), Female [...] EDT TH Visit (TeleHealth) Infectious Disease at [place] [id number] Lilli Joy APRN [facility] [place] [address] 12/03/2023 12:30 PM EDT Office Visit Infectious Disease at [place] [id number] Hollie Ambriz MD [facility] [address] 12/03/2023 2:30 PM EDT Hospital Encounter Radiology at [place] [phone] Andrade Melvin MD [facility] [place] [address] Pending Results Name Type Priority Associated Diagnoses [...] 5:55 AM EST DIFFERENTIAL, AUTOMATED Routine 06/02/19 5:55 AM EST CBC (WITH DIFF) Routine [...] REQUIRING LAMINECTOMY Routine 05/20/2014 10:22 PM EST CHILDREN'S AUTHOR CULTURE Routine 5 10:01 PM EST ANAEROBIC [...] intervals supplied above were not validated at [facility]. Results from pediatric patients should be [...] the following links into your internet browser. [email or web address] Blood specimen (specimen) 06/02/2014 5:55 AM EST 06/02/2014 6:09 AM EST Narrative Resulting Agency Comment Spec In Lab S Alek Burciaga MD CHEMISTRY ORDERABLES Performing Organization Address [facility] de Phone Number [facility] Keukey * (ABNORMAL) Sedimentation rate (06/01/2014 12:40 PM EST) Sed Rate 46(H) 0 - 20 mm/hr [facility] Blood specimen (specimen) Venous Draw / Unknown 06/01/2014 12:40 PM EST 06/01/2014 12:48 PM EST Narrative Resulting Agency Comment Spec In Lab S Alek Burciaga MD HEMATOLOGY ORDERABLE S Performing Organization Address [facility] Phone Number [facility] Keukey * High Sensitivity CRP (06/01/2014 12:40 PM EST) CRP High Sens 15.4 mg/L [facility] Comment: Interpretations: 1) For accurate cardiac risk [...] MD HEMATOLOGY ORDERABLE S Performing Organization Address [facility]/ZIP Co de Phone Number LINDA TOMASENNIUM * (ABNORMAL) Hemogram (06/01/2014 12:40 PM EST) Pathologist [facility] WBC 7.4 4.0 - 10.0 x10(3)/mcL CERNER [...] MD HEMATOLOGY ORDERABLE S Performing Organization Address [facility] de Phone Number CERALIN KEMPIUM * (ABNORMAL) Basic Metabolic Panel (non-fasting) (06/01/2014 12:40 PM EST) [facility] Glucose Lvl 95 60 - 199 mg/dL CERNER MILLENNIUM Comment:Diabetes: >=200 mg/d L plus symptoms BUN 4(L) 8 - 18 mg/dL CERNER MILLENNIUM Creatinine 0.38(L) 0.70 - 1.20 mg/dL CERNER MILLENNIUM Comment: Please note that the pediatric reference intervals supplied above were not validated at [facility]. Results from pediatric patients should be [...] the following links into your internet browser. [email or web address] Blood specimen (specimen) 06/01/2014 12:40 PM EST 06/01/2014 12:48 PM EST Narrative Resulting Agency Comment Spec In Lab S Alek Burciaga MD CHEMISTRY ORDERABLES CERALIN MILLENNIUM * Differential, Automated (05/30/2014 6:50 AM [...] intervals supplied above were not validated at [facility]. Results from pediatric patients should be [...] the following links into your internet browser. [email or web address]://[email or web address] [email or web address] Blood specimen (specimen) 05/30/2014 6:50 AM EST [...] S Alek Burciaga MD HEMATOLOGY ORDERABLE S [facility] * (ABNORMAL) Basic Metabolic Panel (non-fasting) (05/29/2014 7:13 AM EST) Glucose Lvl 83 60 - 199 mg/dL CERNER MILLENNIUM Comment:Diabetes: >=200 mg/d L plus symptoms BUN 5(L) 8 - 18 mg/dL CERNER MILLENNIUM Creatinine 0.31(L) 0.70 - 1.20 mg/dL CERNER MILLENNIUM Comment: Please note that the pediatric reference intervals supplied above were not validated at [facility]. Results from pediatric patients should be [...] the following links into your internet browser. [email or web address]://[email or web address] Blood specimen (specimen) 05/29/2014 7:13 AM EST [...] MD HEMATOLOGY ORDERABLE S CERNER MILLENNIUM * Vancomycin, trough (05/28/2014 9:00 AM EST) [...] intervals supplied above were not validated at [facility]. Results from pediatric patients should be [...] the following links into your internet browser. [email or web address]://[email or web address] Blood specimen (specimen) 05/28/2014 9:00 AM EST [...] HEMATOLOGY ORDERABLE S Performing Organization Address City/[facility] Co de Phone Number CERALIN KEMPIUM * (ABNORMAL) Hemogram (05/27/2014 5:30 AM [...] HEMATOLOGY ORDERABLE S Performing Organization Address City/[facility]/ZIP Co de Phone Number CERALIN KEMPIUM * (ABNORMAL) Basic Metabolic Panel (non-fasting) (05/27/2014 5:30 AM EST) Glucose Lvl 81 60 - 199 mg/dL CERNER MILLENNIUM Comment:Diabetes: >=200 mg/d L plus symptoms BUN 4(L) 8 - 18 mg/dL CERNER MILLENNIUM Creatinine 0.21(L) 0.70 - 1.20 mg/dL CERNER MILLENNIUM Comment: Please note that the pediatric reference intervals supplied above were not validated at [facility]. Results from pediatric patients should be [...] the following links into your internet browser. [email or web address] Blood specimen (specimen) 05/27/2014 5:30 AM EST 05/27/2014 5:39 AM EST Narrative Resulting Agency Comment Spec In Lab Freddy Burciaga MD CHEMISTRY ORDERABLES LINDA BASHIR * Anaerobic Culture (05/26/2014 5:30 PM EST) Anaerobic Culture ? Patient Name: TANA SHELTON ? Ordered By: Freddy BURCIAGA ? MR#: [id number] ?LOC: ??[place] ? /Sex: ??1995 (18 years), [...] ? Ordered By: Freddy BURCIAGA ? MR#: [id number] ?LOC: ??[place] ? /Sex: ??1995 (18 years), [...] ?S ? Tobramycin ? S ? Patient: TNAA SHELTON ? MR#: [id number] ? S=Susceptible ??I=Intermediate ??R=Resistant ??NA=Not Applicable ? DDS=Dose dependent-suscept ible ??NS=Non-suscepti ble ? CERNER MILLENNIUM Structure of back of trunk (body structure) 05/26/2014 5:30 PM EST 05/26/2014 5:41 PM EST Comment:LUMBAR Narrative Resulting Agency Comment Spec In Lab S Alek Burciaga MD MICROBIOLOGY - GENER AL ORDERABLES [facility] * Anaerobic Culture (05/26/2014 5:30 PM EST) Anaerobic Culture ? Patient Name: TANA SHELTON ? Ordered By: Freddy BURCIAGA ? MR#: [id number] ?LOC: ??[place] ? /Sex: ??1995 (18 years), [...] Burciaga MD MICROBIOLOGY - GENER AL ORDERABLES [facility] * Tissue culture (05/26/2014 5:30 PM EST) Tissue Culture ? Patient Name: TANA SHELTON ? Ordered By: Freddy BURCIAGA ? MR#: [id number] ?LOC: ??[place] ? /Sex: ??1995 (18 years), [...] plates. ? Patient: TANA SHELTON ? MR#: [id number] ? SUSCEPTIBILITY RESULTS ? Coagulase negative Staphylococcus [...] (1) ? Gentamicin is not appropriate for Dixie-therapy. ? (2) ? Penicillin resistant, Nafcillin susceptible [...] ? Ordered By: Freddy BURCIAGA ? MR#: [id number] ?LOC: ??[place] ? /Sex: ??1995 (18 years), [...] Burciaga MD MICROBIOLOGY - GENER AL ORDERABLES [facility] * Tissue culture (05/26/2014 5:30 PM EST) Tissue Culture ? Patient Name: TANA SHELTON ? Ordered By: Freddy BURCIAGA ? MR#: [id number] ?LOC: ??[place] ? /Sex: ??1995 (18 years), [...] ? No growth to date. ? LINDA TOMASENNIUM Specimen of unknown material (specimen) 05/26/2014 5:30 PM EST 05/26/2014 5:41 PM EST Comment:POSTERIOR FLANK Narrative Resulting Agency Comment Spec In Lab S Alek Burciaga MD MICROBIOLOGY - GENER AL ORDERABLES LINDA BASHIR * Antibody screen (05/26/2014 12:40 PM EST) Ab Screen Interp Negative LINDA BASHIR Expires at 2359 on: [id number] LINDA BASHIR [...] BANK LAB ORDER MYRANDA Performing Organization Address [facility] Co de Phone Number LINDA BASHIR [...] HEMATOLOGY ORDERABLE S Performing Organization Address City/[facility]/ZIP Co de Phone Number CERALIN MILLENNIUM * [...] intervals supplied above were not validated at [facility]. Results from pediatric patients should be [...] the following links into your internet browser. [email or web address]://[email or web address] Blood specimen (specimen) 05/26/2014 4:15 AM EST 05/26/2014 4:35 AM EST Narrative Resulting Agency Comment Spec In Lab S Alek Burciaga MD CHEMISTRY ORDERABLES LINDA BASHIR * Place PICC Line: Contact Vascular Access Page [phone] (05/25/2014 4:01 PM EST) Narrative [place] [...] to the planned procedure. Hand Hygiene: The dairy store manager did perform hand hygiene prior to line insertion. Catheter type: PICC Lot number: [id number] Procedure Technique: Skin was prepped with chlorhexidine. [...] focal. COMPARISON: Scoliosis radiographs from 12/16/2011 FINDINGS: Threader Operator views demonstrate severe rightward scoliotic deformity [...] No gross collections in the cervical spine. Threader Operator coronal image 8 of series 8 [...] inf,focal. COMPARISON: Scoliosis radiographs from 12/16/2011 FINDINGS: Threader Operator views demonstrate severe rightward scoliotic deformity [...] abnormalities. No grosscollections in the cervical spine. Threader Operator coronal image 8 of series 8 [...] by the attending S Alek Burciaga MD [facility] MRI ORDERABLES * MRI thoracic spine without contrast (05/25/2014 1:26 PM EST) Anatomical Region Laterality Modality T-spine Magnetic Resonan ce 05/25/2014 1:26 PM EST Narrative 05/25/2014 4:10 PM EST See accession #[id number] for dictation of this study. This report was reviewed by Andrade Rebolledo MD at 05/25/2014 4:05 PM Film and interpretation reviewed by the attending Procedure Note Andrade Roth MD - 05/25/2014 See accession #[id number] for dictation of this study. This report [...] ORDERABLE S CERALIN TOMASENNIUM * (ABNORMAL) Hemogram (05/25/2014 5:00 AM EST) Pathologist [facility] WBC 7.1 4.0 - 10.0 x10(3)/mcL CERNER [...] MD HEMATOLOGY ORDERABLE S Performing Organization Address [facility] Co de Phone Number CERALIN KEMPIUM * (ABNORMAL) Basic Metabolic Panel (non-fasting) (05/25/2014 5:00 AM EST) Pathologist [facility] Glucose Lvl 87 60 - 199 mg/dL CERNER MILLENNIUM Comment:Diabetes: >=200 mg/d L plus symptoms BUN 6(L) 8 - 18 mg/dL CERNER MILLENNIUM Creatinine 0.27(L) 0.70 - 1.20 mg/dL CERNER MILLENNIUM Comment: Please note that the pediatric reference intervals supplied above were not validated at [facility]. Results from pediatric patients should be [...] the following links into your internet browser. [email or web address] Blood specimen (specimen) 05/25/2014 5:00 AM EST [...] intervals supplied above were not validated at [facility]. Results from pediatric patients should be [...] the following links into your internet browser. [email or web address]://[email or web address] http://[employer]/[facility] Blood specimen (specimen) 05/24/2014 12:42 PM EST 05/24/2014 12:42 PM EST Narrative Resulting Agency Comment Spec In Lab Freddy Burciaga MD CHEMISTRY ORDERABLES Performing Organization Address [facility] Co de Phone Number LINDA BASHIR [...] Burciaga MD CHEMISTRY ORDERABLES Performing Organization Address [facility] Co de Phone Number CERALIN BASHIR * (ABNORMAL) Electrolytes [...] Burciaga MD CHEMISTRY ORDERABLES Performing Organization Address [facility] Co de Phone Number CERNER MILLENNIUM [...] Burciaga MD CHEMISTRY ORDERABLES Performing Organization Address [facility] Co de Phone Number CERNER MILLENNIUM * (ABNORMAL) Phosphorus (05/22/2014 12:45 PM EST) Phosphorus 2.2(L) 2.5 - 4.5 mg/dL CERNER MILLENNIUM Blood specimen (specimen) Venous Draw / Unknown 05/22/2014 12:45 PM EST 05/22/2014 1:03 PM EST Narrative Resulting Agency Comment Spec In Lab Lucho Smith MD CHEMISTRY ORDERABLES Performing Organization Address [facility] Co de Phone Number CERNER MILLENNIUM * Magnesium (05/22/2014 12:45 PM EST) Magnesium 0.69 0.69 - 1.07 mmol/L CERNER MILLENNIUM Blood specimen (specimen) Venous Draw / Unknown 05/22/2014 12:45 PM EST 05/22/2014 1:03 PM EST Narrative Resulting Agency Comment Spec In Lab Lucho Smith MD CHEMISTRY ORDERABLES Performing Organization Address [facility] Co de Phone Number CERALIN KEMPIUM * Lipase (05/22/2014 12:45 PM EST) Lipase 44 0 - 60 unit/L CERNER MILLENNIUM Blood specimen (specimen) 05/22/2014 12:45 PM EST 05/22/2014 1:03 PM EST Narrative Resulting Agency Comment Spec In Lab Lucho Smith MD CHEMISTRY ORDERABLES Performing Organization Address [facility] Co de Phone Number CERALIN KEMPIUM * Amylase (05/22/2014 12:45 PM EST) Pathologist [facility] Amylase 89 28 - 100 unit/L CERNER MILLENNIUM Blood specimen (specimen) 05/22/2014 12:45 PM EST 05/22/2014 1:03 PM EST Narrative Resulting Agency Comment Spec In Lab Lucho Smith MD CHEMISTRY ORDERABLES Performing Organization Address [facility] de Phone Number CERALIN TOMASENNIUM * (ABNORMAL) Comprehensive metabolic panel (non-fasting) (05/22/2014 12:45 PM EST) Pathologist [facility] Glucose Lvl 81 60 - 199 mg/dL CERNER MILLENNIUM Comment:Diabetes: >=200 mg/d L plus symptoms BUN 2(L) 8 - 18 mg/dL CERNER MILLENNIUM Creatinine 0.31(L) 0.70 - 1.20 mg/dL CERNER MILLENNIUM Comment: Please note that the pediatric reference intervals supplied above were not validated at [facility]. Results from pediatric patients should be [...] the following links into your internet browser. [email or web address] Blood specimen (specimen) 05/22/2014 12:45 PM EST [...] MD HEMATOLOGY ORDERABLE S Performing Organization Address [facility] Co de Phone Number [facility] * Vancomycin, trough (05/22/2014 6:10 AM [...] Burciaga MD CHEMISTRY ORDERABLES Performing Organization Address [facility] Phone Number [facility] * (ABNORMAL) Basic Metabolic Panel (non-fasting) (05/22/2014 6:10 AM EST) Glucose Lvl 86 60 - 199 mg/dL CERNER MILLENNIUM Comment:Diabetes: >=200 mg/d L plus symptoms BUN 3(L) 8 - 18 mg/dL CERNER MILLENNIUM Creatinine 0.27(L) 0.70 - 1.20 mg/dL CERNER MILLENNIUM Comment: Please note that the pediatric reference intervals supplied above were not validated at [facility]. Results from pediatric patients should be interpreted in conjunction to the patient's age, height and muscle mass. Sodium 141 135 - 145 mmol/L CERNER MILLENNIUM Potassium 2.9(Criti dean) 3.5 - 5.0 mmol/L CERNER MILLENNIUM Comment: Called by: whit, Read back by: foxsteve mcintyre, Date/Time:05/22/14 07:02. Please note: ??Patients with [...] the following links into your internet browser. [email or web address]://[email or web address] Blood specimen (specimen) 05/22/2014 6:10 AM EST [...] intervals supplied above were not validated at [facility]. Results from pediatric patients should be [...] the following links into your internet browser. [email or web address]://[email or web address] [email or web address] Blood specimen (specimen) 05/21/2014 4:23 AM EST 05/21/2014 4:38 AM EST Narrative Resulting Agency Comment Spec In Lab Freddy Burciaga MD CHEMISTRY ORDERABLES Performing Organization Address City/State/ZIP Co [place] Phone Number [facility] * Blue Leather Sorter Culture (05/20/2014 10:01 PM EST) Blue Leather Sorter Culture ? Patient Name: TANA SHELTON ? Ordered By: Freddy BURCIAGA ? MR#: [id number] ?LOC: ??[place] ? /Sex: ??1995 (18 years), ? Female ? PROCEDURE: Blue Leather Sorter Culture ?SOURCE: Other ? COLLECTED: 05/20/2014 22:01 ? BODY SITE: Other ? STARTED: 05/20/2014 22:22 ?FREE TEXT SOURCE: retained baclafin pump tubing ? FINAL REPORT ? Final Report ? Verified:05/24/2014 10:28 ? Pseudomonas aeruginosa isolated ? Susceptibilities previously reported ? PRELIMINARY REPORT ? Preliminary Report ? Verified:05/23/2014 11:27 ? Pseudomonas aeruginosa isolated ? Susceptibilities previously reported ? LINAD BASHIR Specimen of unknown material (specimen) TOPOGRAPHY UNKNOWN / Unknown 05/20/2014 10:01 PM EST 05/20/2014 10:21 PM EST Comment:RETAINED BACLAFIN PU MP TUBING Narrative Resulting Agency Comment Spec In Lab Freddy Burciaga MD MICROBIOLOGY - GENER AL ORDERABLES LINDA BASHIR * Anaerobic Culture (05/20/2014 9:25 PM EST) Anaerobic Culture ? Patient Name: TANA SHELTON ? Ordered By: Freddy BURCIAGA ? MR#: [id number] ?LOC: ??[place] ? /Sex: ??1995 (18 years), [...] Name: TANA SHELTON ? Ordered By: Freddy BURCIGAA ? MR#: [id number] ?LOC: ??[place] ? /Sex: ??1995 (18 years), [...] S ? Patient: SHELTONTANA S ? MR#: [id number] ? S=Susceptible ??I=Intermediate ??R=Resistant ??NA=Not Applicable ? [...] ? Ordered By: Freddy BURCIAGA ? MR#: [id number] ?LOC: ??[place] ? /Sex: ??1995 (18 years), [...] MD MICROBIOLOGY - GENER AL ORDERABLES [facility] * Tissue culture (05/20/2014 8:20 PM EST) Tissue Culture ? Patient Name: TANA SHELTON ? Ordered By: Freddy BURCIAGA ? MR#: [id number] ?LOC: ??[place] ? /Sex: ??1995 (18 years), [...] ? Ordered By: BELKIS LOUIE ? MR#: [id number] ?LOC: ??[place] ? /Sex: ??1995 (18 years), [...] Louie MD MICROBIOLOGY - GENER AL ORDERABLES [facility] VIRIDIANAIUM * (ABNORMAL) Urinalysis with microscopic (05/20/2014 6:46 [...] Appearance UA Hazy(A) Clear CERNER MILLENNIUM Spec [place] UA 1.026 1.002 - 1.030 CERNER MILLENNIUM [...] Lab Belkis Louie MD URINE ORDERABLES [facility] * L-Lactate2 Whole Blood (05/20/2014 6:17 PM EST) Lactate WB 1.6 0.5 - 2.2 mmol/L LINDA BASHIR Blood specimen (specimen) 05/20/2014 6:17 PM EST 05/20/2014 6:17 PM EST Belkis Louie MD CHEMISTRY ORDERABLES [facility] * Blood culture (05/20/2014 6:00 PM EST) Blood Culture ? Patient Name: TANA SHELTON ? Ordered By: BELKIS LOUIE ? MR#: [id number] ?LOC: ??[place] ? /Sex: ??1995 (18 years), [...] Louie MD CHEMISTRY ORDERABLES Performing Organization Address City/[facility]/ZIP Co de Phone Number LINDA KEMPIUM * [...] MD HEMATOLOGY ORDERABLE S Performing Organization Address [facility] Co de Phone Number CERNER MILLENNIUM [...] ? Ordered By: BELKIS LOUIE ? MR#: [id number] ?LOC: ??[place] ? /Sex: ??1995 (18 years), [...] ? No growth at 4 days. ? [facility] Blood specimen (specimen) STRUCTURE OF LEFT HAND / Unknown 05/20/2014 5:15 PM EST 05/20/2014 7:17 PM EST Comment:HOLD UNTIL MD HULL Narrative Resulting Agency Comment Spec In Lab Belkis Louie MD MICROBIOLOGY - BLOOD ORDERABLES [facility] * Glucose, random (05/20/2014 5:15 PM EST) Glucose Lvl 81 60 - 199 mg/dL [facility] Comment:Diabetes: >=200 mg/d L plus symptoms Blood specimen (specimen) 05/20/2014 5:15 PM EST 05/20/2014 5:31 PM EST Narrative Resulting Agency Comment Spec In Lab Belkis Louie MD CHEMISTRY ORDERABLES Performing Organization Address [facility] de Phone Number LINDA BASHIR * (ABNORMAL) Creatinine (05/20/2014 5:15 PM EST) Creatinine 0.37(L) 0.70 - 1.20 mg/dL [facility] Comment: Please note that the pediatric reference intervals supplied above were not validated at [facility]. Results from pediatric patients should be interpreted in conjunction to the patient's age, height and muscle mass. Estimated GFR >60 >=60 [facility] Comment: This estimated GFR (eGFR) value [...] the following links into your internet browser. [email or web address] Blood specimen (specimen) 05/20/2014 5:15 PM EST 05/20/2014 5:31 PM EST Narrative Resulting Agency Comment Spec In Lab Belkis Louie MD CHEMISTRY ORDERABLES Performing Organization Address [facility] de Phone Number LINDA BASHIR * BUN (05/20/2014 5:15 PM EST) BUN 9 8 - 18 mg/dL [facility] Blood specimen (specimen) 05/20/2014 5:15 PM EST 05/20/2014 5:31 PM EST Narrative Resulting Agency Comment Spec In Lab Belkis Louie MD CHEMISTRY ORDERABLES Performing Organization Address [facility] Co de Phone Number LINDA BASHIR [...] In Lab Belkis Louie MD CHEMISTRY ORDERABLES [facility] documented in this encounter Visit Diagnoses [...] Nely Boss, Indication for (Active or Suspected): 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
--- OUTSIDE RECORDS SUMMARY | 2023-11-23 16:41 | XMS_ITS | Encounter Summary ---
[place] [address] Care Team Providers Care Armhole Raiser Lockstitch Name Role Phone Naina Lindsey MD Primary Care Provider [phone] Encounter Details Date Type Department Care Team (Late st Contact Info) Description 05/20/2014 8:18 PM EST Anesthesia Event [place] [phone] Eli Alexander MD [facility] [place] [address] Neva Gómez MD [facility] [place] [address] Anesthesia Record Procedure Summary Procedure Name Responsible Anesthesiologist Anesthesia Start Time Anesthesia Stop Time @I & D, OPEN, DEEP ABSCESS, LUMBAR, SACRAL, LUMBOSACRAL (WRVU 12.64) (Back) Eli Alexander MD 05/20/14201705/20/14 2353 Events Date Time Event Comment 05/20/20142010 Start 2020 AN Verify 2019 An Start Data 2019 An Start Data 2026 An Induction 2028 An Intubation 2058 Anesthesia Ready 2115 Procedure Start 2214 Quick Note Patient without any twitches on nerve stimulator. Decision made to transfer to the PACU intubated and allow rocuronium to wear off there. 2353 Extubation/LMA Out 235 an stop data 2352 Stop 235 Quick Note Patient extubat ed [...] 05/20/14; 1800; jugular vein, external left (neck); foec-cma-acejjg catheter system; 18 gauge, 1 in length; [...] OR Notes * Anesthesia Postprocedure Evaluation - Vern Neva M - 05/21/2014 12:01 AM EST Patient: [facility] [...] [facility] ??? Apply of hip casts, two legs 08/15/2010 CAST APPLICATION, HIP SPICA, BOTH LEGS performed by BARRERA OLIVER at [facility] MAIN OR ??? Removal deep implant 08/15/2010 REMOVAL IMPLANT, DEEP, BRUNO performed by BARRERA OLIVER at [facility] MAIN OR ??? Osteotomy femur shaft/supracondy 08/15/2010 ??OSTEOTOMY, FEMUR SHAFT OR SUPRACONDYLAR W/O FIXATION performed by BARRERA OLIVER at [facility] MAIN OR ??? Remove spinal canal catheter N/A 05/11/2014 REMOVAL OF INTRATHECAL OR EPIDURAL CATHETER performed by Jamaal Samuel MD at [facility] MAIN OR ??? Remove infusn device/pump N/A 05/11/2014 REMOVAL OF SPINE INFUSION PUMP performed by Jamaal Samuel MD at [facility] MAIN OR History Substance Use Topics ??? [...] exam normal Dental Assessment: - normal exam Mis Assessment: Anesthesia Plan: ASA 3 emergent general, [...] Upcoming Encounters Date Type Department Care Team (Irais Contact Info) Description 11/25/2023 2:00 PM EDT TH Visit (TeleHealth) [place] [address] Lilli Joy APRN [facility] [place] [address] 12/03/2023 12:30 PM EDT Office [place] [address] Hollie Ambriz MD [facility] [place] [address] 12/03/2023 2:30 PM EDT Hospital En[place] [address] Andrade Melvin MD [facility] [place] [address] documented as of this encounter [...] mg documented in this encounter Care Teams Armhole Raiser Lockstitch Relationship Specialty Start Date End Date Naina Lindsey MD [address] [place] [address] PCP - General 03/19/10 08/25/16 documented as of this encounter
--- OUTSIDE RECORDS SUMMARY | 2023-11-23 16:41 | XMS_ITS | Encounter Summary ---
Author Organization [facility] [place] [address] Care Team Providers Care Grief Counselor Name Role Phone Naina Lindsey MD Primary Care Provider [phone] Encounter Details Date Type Department Care Team (Late st Contact Info) Description 05/23/2014 External Results [place] [phone] Unknown None Social History Tobacco Use Types [...] EDT TH Visit (TeleHealth) [place] [address] Lilli Joy APRN [facility] [place] [address] 12/03/2023 12:30 PM EDT Office [place] [address] Hollie Ambriz MD [facility] [place] [address] 12/03/2023 2:30 PM EDT Hospital [place] [address] Andrade Melvin MD [facility] [place] [address] documented as of this encounter Procedures Procedure Name Priority Date/Time Associated Diagnosis Comments EDITORIAL WRITER Routine 05/21/2014 documented in this encounter Results * environmental conservation professor (05/21/2014) Unknown GENERAL SUPPLY ORDER MYRANDA documented in this encounter Visit Diagnoses Not on filedocumented in this encounter Care Teams Grief Counselor Relationship Specialty Start Date End Date Naina Lindsey MD [place] [address] PCP - General 03/19/10 08/25/16 documented as of this encounter
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
--- OUTSIDE RECORDS SUMMARY | 2023-11-23 16:42 | XMS_ITS | Encounter Summary ---
Author Organization [facility] [place] [address] Care Team Providers Care Lower School Music Teacher Name Role Phone Naina Lindsey MD Primary Care Provider [phone] Reason for Visit * Reason Comments Pain Pain, Chronic Encounter Details Date Type Department Care Team (Latest Contact Info) Description 03/15/2014 4:45 PM EST Procedure [place] [phone] Donnell Dotson MD [facility] [place] [address] Presence of intrathecal baclofen pump; Abnormal involuntary movements(151.0) Discharge Disposition: Home Social History Tobacco Use [...] 25 mcg per day. Donnell Dotson MD Overedger of Anesthesiology Pain Management Center [facility] documented in this encounter Plan of Treatment Upcoming Encounters Date Type Department Care Team (Late st Contact Info) Description 11/25/2023 2:00 PM EDT TH Visit (TeleHealth) [facility] [place] [address] Lilli Joy APRN [facility] [place] [address] 12/03/2023 12:30 PM EDT Office [place] [address] Hollie Ambriz MD [facility] [place] [address] 12/03/2023 2:30 PM EDT Hospital [place] [address] Andrade Melvin MD [facility] [place] [address] documented as of this encounter [...] 25 mcg per day. Donnell Dotson MD Overedger of Anesthesiology Pain Management Center [facility] Donnell Dotson MD PROCEDURE/MINOR SURG ICAL ORDERABLES documented in this encounter Visit Diagnoses Diagnosis Presence of intrathecal baclofen pump Abnormal involuntary movements(781.0) Abnormal involuntary movements documented in this encounter Care Teams Lower School Music Teacher Relationship Specialty Start Date End Date Naina Lindsey MD [address] [place] [address] PCP - General 03/19/10 08/25/16 documented as of this encounter
--- OUTSIDE RECORDS SUMMARY | 2023-11-23 16:42 | XMS_ITS | Encounter Summary ---
Author Organization [facility] Benjamin [facility] [place] [address] Care Team Providers Care Building Estimator Name Role Phone Naina Lindsey MD Primary Care Provider [phone] Reason for Visit * Reason Comments Pain Management Encounter Details Date Type Department Care Team (Latest Contact Info) Description 02/28/2014 4:30 PM EST Procedure visit [place] [address] Donnell Dotson MD [facility] [place] [address] Karen Early [facility] [place] [address] Traumatic brain injury, sequela (Primary Dx) Discharge [...] 02/28/2014 4:58 PM EST Tana Cavazos 02/28/2014 [id number] Intrathecal Pump Visit Tana Cavazos presents today [...] TH Visit (TeleHealth) Infectious Disease at [address] Lilli Joy APRN [facility] [place] [address] 12/03/2023 12:30 PM EDT Office Visit Infectious Disease at [address] Hollie Ambriz MD [facility] [place] [address] 12/03/2023 2:30 PM EDT Hospital Encounter Radiology at [place] [address] Andrade Melvin MD [facility] [place] [address] documented as of this encounter Visit Diagnoses Diagnosis Traumatic brain injury, sequela- Primary documented in this encounter Care Teams Building Estimator Relationship Specialty Start Date End Date Naina Lindsey MD [address] [place] [address] [place] [address] PCP - General 03/19/10 08/25/16 documented as of this encounter
--- OUTSIDE RECORDS SUMMARY | 2023-11-23 16:42 | XMS_ITS | Encounter Summary ---
Author Organization [facility] Address [facility] [place] [address] Care Team Providers Care Pillar Worker Name Role Phone Naina Lindsey MD Primary Care Provider [phone] Reason for Visit * Reason Comments Follow-up PRE-SURGERY QUESTION S Encounter Details Date Type Department Care Team (Late st Contact Info) Description 05/03/2014 3:00 PM EST Follow-Up [place] [address] Jamaal Samuel MD [facility] [address] [place] [address] Presence of intrathecal baclofen pump Discharge Disposition: [...] pump placed for increased extremity tone at [facility] in 2007 but mom believes the pump [...] EDT TH Visit (TeleHealth) [place] [address] Lilli Joy APRN [facility] [place] [address] 12/03/2023 12:30 PM EDT Office Visit [place] [address] Hollie Ambriz MD [facility] [place] [address] 12/03/2023 2:30 PM EDT Hospital Encounter Radiology at [facility] [place] [address] Andrade Melvin MD [facility] INTERVENTION[place] [address] documented as of this encounter Visit Diagnoses Diagnosis Presence of intrathecal baclofen pump documented in this encounter Care Teams Pillar Worker Relationship Specialty Start Date End Date Naina Lindsey MD [address] [place] [address] PCP - General 03/19/10 08/25/16 documented as of this encounter
--- OUTSIDE RECORDS SUMMARY | 2023-11-23 16:42 | XMS_ITS | Encounter Summary ---
Author Organization [facility] [place] [address] Care Team Providers Care Liquor Gallery Operator Name Role Phone Naina Lindsey MD Primary Care Provider [phone] Encounter Details Date Type Department Care Team (Latest Contact Info) Description 05/03/2014 4:15 PM EST Procedure [place] [address] Donnell Dotson MD [facility] [place] [address] Presence of intrathecal baclofen pump Discharge Disposition: [...] Jamaal Samuel relatively soon. Donnell Dotson MD Pottery Machine Operator of Anesthesiology Pain Management Center [facility] documented in this encounter Plan of Treatment Upcoming Encounters Date Type Department Care Team (Late st Contact Info) Description 11/25/2023 2:00 PM EDT TH Visit (TeleHealth) [place] [address] Lilli Joy APRN [facility] [place] [address] 12/03/2023 12:30 PM EDT Office [place] [address] Hollie Ambriz MD [facility] [place] [address] 12/03/2023 2:30 PM EDT Hospital [place] [address] Andrade Melvin MD [facility] [place] [address] documented as of this encounter Visit Diagnoses Diagnosis Presence of intrathecal baclofen pump documented in this encounter Care Teams Liquor Gallery Operator Relationship Specialty Start Date End Date Naina Lindsey MD [address] [place] [address] [place] [address] PCP - General 03/19/10 08/25/16 documented as of this encounter
--- OUTSIDE RECORDS SUMMARY | 2023-11-23 16:42 | XMS_ITS | Encounter Summary ---
Author Organization [facility] Benjamin [place] [address] Care Team Providers Care Rn Production Name Role Phone Naina Lindsey MD Primary Care Provider [phone] Encounter Details Date Type Department Care Team (Late st Contact Info) Description 07/12/2012 Telephone [place] [address] Aniket Heredia MD [facility] [place] [address] Social History Tobacco Use Types Packs/Day Years [...] Visit (TeleHealth) Infectious Disease at [place] [address] Lilli Joy APRN [facility] [place] [address] 12/03/2023 12:30 PM EDT Office [place] [address] Hollie Ambriz MD [facility] [place] [address] 12/03/2023 2:30 PM EDT Hospital Encounter Radiology at [place] [phone] Andrade Melvin MD [facility] [place] [address] documented as of this encounter Visit Diagnoses Not on filedocumented in this encounter Care Teams Rn Production Relationship Specialty Start Date End Date Naina Lindsey MD [address] [place] [address] PCP - General 03/19/10 08/25/16 documented as of this encounter
--- OUTSIDE RECORDS SUMMARY | 2023-11-23 16:42 | XMS_ITS | Encounter Summary ---
[place] [address] Care Team Providers Care Ged Tutor Name Role Phone Naina Lindsey MD Primary Care Provider [phone] Encounter Details Date Type Department Care Team (Late st Contact Info) Description 08/01/2012 Notes [place] [address] Chelsea Alva RN Social History Tobacco Use [...] EDT TH Visit (TeleHealth) Infectious Disease at [address] Lilli Joy APRN [facility] [place] [address] 12/03/2023 12:30 PM EDT Office Visit Infectious Disease at [place] [phone] Hollie Ambriz MD [facility] [place] [address] 12/03/2023 2:30 PM EDT Hospital Encounter Radiology at [place] [phone] Andrade Melvin MD [facility] [place] [address] documented as of this encounter Visit Diagnoses Not on filedocumented in this encounter Care Teams Ged Tutor Relationship Specialty Start Date End Date Naina Lindsey MD [address] [place] [address] [place] [address] PCP - General 03/19/10 08/25/16 documented as of this encounter
--- OUTSIDE RECORDS SUMMARY | 2023-11-23 16:42 | XMS_ITS | Encounter Summary ---
Author Organization [facility] [place] [address] Care Team Providers Care Boiler Assistant Operator Name Role Phone Naina Lindsey MD Primary Care Provider [phone] Reason for Visit * Reason Comments Pain Encounter Details Date Type Department Care Team (Latest Contact Info) Description 02/15/2014 4:45 PM EDT Procedure visit [place] [address] Donnell Dotson MD [facility] [place] [address] Spasticity; Abnormal involuntary movements(081.0) Discharge Disposition: Home Social History Tobacco Use [...] EDT TH Visit (TeleHealth) [place] [address] Lilli Joy APRN [facility] INFECTIOUS [place] [address] 12/03/2023 12:30 PM EDT Office [place] [address] Hollie Ambriz MD [facility] INFECTIOUS [place] [address] 12/03/2023 2:30 PM EDT Hospital Encounter Radiology at [place] [phone] Andrade Melvin MD [facility] INTERVENTIONAL [place] [address] documented as of this encounter Procedures Procedure [...] movements documented in this encounter Care Teams Boiler Assistant Operator Relationship Specialty Start Date End Date Naina Lindsey MD [address] [place] [address] [place] [address] PCP - General 03/19/10 08/25/16 documented as of this encounter
--- OUTSIDE RECORDS SUMMARY | 2023-11-23 16:42 | XMS_ITS | Encounter Summary ---
Author Organization [facility] [place] [address] Care Team Providers Care Sap Portal Developer Name Role Phone Lorna Bal APRN Primary Care Provider [phone] Encounter Details Date Type Department Care Team (Late st Contact Info) Description 12/21/2013 Interpretation [place] [phone] Chuckie Mayfield MD [facility] [place] [address] Social History Tobacco Use Types Packs/Day Years [...] EDT TH Visit (TeleHealth) [place] [address] Lilli Joy APRN [facility] [place] [address] 12/03/2023 12:30 PM EDT Office [place] [address] Hollie Ambriz MD [facility] [address] 12/03/2023 2:30 PM EDT Hospital En[place] [address] Andrade Melvin MD [facility] [place] [address] documented as of this encounter Procedures Procedure Name Priority Date/Time Associated Diagnosis Comments FILM LIBRARY STORAGE ONLY DX UPPER EXTREMITY Routine 12/21/2013 1:30 PM EDT documented in this encounter Results * Film Library- Storage Only DX Upper Extremity (12/21/2013 1:30 PM EDT) 08/10/2023 3:14 PM EDT Narrative [facility] - 08/10/2023 3:14 PM EDT This exam is auto-finalizing. It's purpose is for storage only. Chuckie [place] MD IMG FILM LIBRARY ORD ERABLES [place], [place] documented in this encounter Visit Diagnoses [...] documented as of this encounter Care Teams Sap Portal Developer Relationship Specialty Start Date End Date Lorna Bal APRN [address] [place] [address] PCP - General Family Medicine 05/27/18 documented as of this encounter
--- OUTSIDE RECORDS SUMMARY | 2023-11-23 16:42 | XMS_ITS | Encounter Summary ---
Author Organization [facility] [place] [address] Care Team Providers Care Conversion Worker Name Role Phone Naina Lindsey MD Primary Care Provider [phone] Encounter Details Date Type Department Care Team (Late st Contact Info) Description 06/16/2013 Orders [place] [phone] [facility] [place] [address] Social History Tobacco Use Types Packs/Day Years [...] EDT TH Visit (TeleHealth) [place] [phone] [facility] [place] [address] 12/03/2023 12:30 PM EDT Office [place] [phone] [facility] [place] [address] 12/03/2023 2:30 PM EDT Hospital [place] [phone] [facility] [place] [address] documented as of this encounter Visit Diagnoses Not on filedocumented in this encounter Care Teams Conversion Worker Relationship Specialty Start Date End Date Naina Lindsey MD [address] [place] [address] PCP - General 03/19/10 08/25/16 documented as of this encounter
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
--- OUTSIDE RECORDS SUMMARY | 2023-11-23 16:42 | XMS_ITS | Encounter Summary ---
Author Organization [facility] [place] [address] Care Team Providers Care Pharmacy Sales Assistant Name Role Phone Naina Lindsey MD Primary Care Provider [phone] Encounter Details Date Type Department Care Team (Late st Contact Info) Description 07/12/2012 Telephone [place] [phone] Aniket Heredia MD [facility] [place] [address] Social History Tobacco Use Types Packs/Day Years [...] her child evaluated in the ED at [facility] over the weekend and today again at her snack bar cashier's office. She reports that Tana seems to [...] this plan. Aniket Heredia MD Pain fellow [employer] [employer] documented in this encounter Plan of Treatment Upcoming Encounters Date Type Department Care Team (Late st Contact Info) Description 11/25/2023 2:00 PM EDT TH Visit (TeleHealth) Infectious Disease at [place] [address] Lilli Joy APRN [facility] [place] [address] 12/03/2023 12:30 PM EDT Office Visit Infectious Disease at [place] [address] Hollie Ambriz MD [facility] [place] [address] 12/03/2023 2:30 PM EDT Hospital Encounter Radiology at [place] [address] Andrade Melvin MD [facility] [place] [address] documented as of this encounter Visit Diagnoses Not on filedocumented in this encounter Care Teams Pharmacy Sales Assistant Relationship Specialty Start Date End Date Naina Lindsey MD [address] [place] [address] PCP - General 03/19/10 08/25/16 documented as of this encounter
--- OUTSIDE RECORDS SUMMARY | 2023-11-23 16:42 | XMS_ITS | Encounter Summary ---
Author Organization [facility] [place] [address] Care Team Providers Care Felling Bucking Supervisor Name Role Phone Naina Lindsey MD Primary Care Provider [phone] Reason for Visit * Reason Comments Pain Management Encounter Details Date Type Department Care Team (Latest Contact Info) Description 04/25/2014 4:15 PM EST Procedure [place] [phone] Donnell Dotson MD [facility] [place] [address] Spasticity; Presence of intrathecal baclofen pump; Cerebral [...] EDT TH Visit (TeleHealth) [place] [address] Lilli Joy APRN [facility] [place] [address] 12/03/2023 12:30 PM EDT Office [place] [address] Hollie Ambriz MD [facility] [place] [address] 12/03/2023 2:30 PM EDT Hospital [place] [address] Andrade Melvin MD [facility] [place] [address] documented as of this encounter [...] unspecified documented in this encounter Care Teams Felling Bucking Supervisor Relationship Specialty Start Date End Date Naina Lindsey MD [address] [place] [address] PCP - General 03/19/10 08/25/16 documented as of this encounter
--- OUTSIDE RECORDS SUMMARY | 2023-11-23 16:42 | XMS_ITS | Encounter Summary ---
Author Organization [facility] [place] [address] Care Team Providers Care Sintering Plant Supervisor Name Role Phone Naina Lindsey MD Primary Care Provider Encounter Details Date Type Department Care Team (Late st Contact Info) Description 07/20/2012 Orders [place] [address] Bigg Dunbar MD [facility] [place] [address] Social History Tobacco Use Types Packs/Day Years [...] EDT TH Visit (TeleHealth) [place] [phone] Lilli Joy APRN [facility] [place] [address] 12/03/2023 12:30 PM EDT Office Visit Infectious Disease at [place] [phone] Hollie Ambriz MD [facility] [place] [address] 12/03/2023 2:30 PM EDT Hospital [place] [address] Andrade Melvin MD [facility] [place] [address] documented as of this encounter Visit Diagnoses Not on filedocumented in this encounter Care Teams Sintering Plant Supervisor Relationship Specialty Start Date End Date Naina [place] [address] PCP - General 03/19/10 08/25/16 documented as of this encounter
--- OUTSIDE RECORDS SUMMARY | 2023-11-23 16:42 | XMS_ITS | Encounter Summary ---
Author Organization [facility] [place] [address] Care Team Providers Care Thermospray Operator Name Role Phone Naina Lindsey MD Primary Care Provider [phone] Encounter Details Date Type Department Care Team (Latest Contact Info) Description 03/29/2014 4:15 PM EST Procedure [place] [phone] Donnell Dotson MD [facility] [place] [address] Traumatic brain injury, subsequent encounter; Abnormal involuntary [...] would be in order. Donnell Dotson MD Circulation Librarian of Anesthesiology [facility] documented in this encounter Plan of Treatment Upcoming Encounters Date Type Department Care Team (Late st Contact Info) Description 11/25/2023 2:00 PM EDT TH Visit (TeleHealth) [place] [address] Lilli Joy APRN [facility] [place] [address] 12/03/2023 12:30 PM EDT Office [place] [address] Hollie Ambriz MD [facility] [place] [address] 12/03/2023 2:30 PM EDT Hospital Encounter Radiology at [facility] [place] [address] Andrade Melvin MD [facility] [place] [address] documented as of this encounter Procedures Procedure [...] would be in order. Donnell Dotson MD Circulation Librarian of Anesthesiology [facility] Donnell Dotson MD PROCEDURE/MINOR SURG ICAL ORDERABLES documented in this encounter Visit Diagnoses Diagnosis Traumatic brain injury, subsequent encounter Abnormal involuntary movements(781.0) Abnormal involuntary movements documented in this encounter Care Teams Thermospray Operator Relationship Specialty Start Date End Date Naina Lindsey MD [address] [place] [address] [place] [address] PCP - General 03/19/10 08/25/16 documented as of this encounter
--- OUTSIDE RECORDS SUMMARY | 2023-11-23 16:42 | XMS_ITS | Encounter Summary ---
Author Organization [facility] [place] [address] Care Team Providers Care Ent Physician Name Role Phone Lorna Bal APRN Primary Care Provider [phone] Encounter Details Date Type Department Care Team (Late st Contact Info) Description 12/21/2013 Interpretation [place] [phone] Chuckie Mayfield MD [facility] [place] [address] Social History Tobacco Use Types Packs/Day Years [...] Visit (TeleHealth) [place] [address] Lilli Joy APRN [facility] [address] 12/03/2023 12:30 PM EDT Office [place] [address] Hollie Ambriz MD [facility] [address] 12/03/2023 2:30 PM EDT Hospital [place] [address] Andrade Melvin MD [facility] [place] [address] documented as of this encounter Procedures Procedure Name Priority Date/Time Associated Diagnosis Comments FILM LIBRARY STORAGE ONLY DX WRIST Routine 12/21/2013 1:40 PM EDT documented in this encounter Results * Film Library- Storage Only DX Wrist (12/21/2013 1:40 PM EDT) 08/10/2023 3:14 PM EDT Narrative [facility] - 08/10/2023 3:14 PM EDT This exam is auto-finalizing. It's purpose is for storage only. Chuckie Mayfield MD IMG FILM LIBRARY ORD ERABLES [place], [place] documented in this encounter Visit Diagnoses Not on filedocumented in this encounter Additional Health Concerns Infection Onset Date Last Indicated Resolved Time Rule Out Respiratory 06/28/2022 06/28/2022 03/04/2 023 5:38 PM EST Rule Out COVID-19 06/28/2022 06/28/2022 06/28/2022 5:38 PM EST Parainfluenza Virus 06/28/2022 06/28/2022 07/10/19 8:09 PM EDT Rule Out COVID-19 07/28/2022 07/29/2022 07/29/2022 12:36 AM EDT Rule Out COVID-19 07/28/2022 07/28/2022 07/29/2022 2:25 AM EDT Enterovirus / Rhinovirus 07/28/2022 07/28/2022 8:09 PM EDT Rule Out Respiratory 07/29/2022 07/29/2022 023 2:25 AM EDT documented as of this encounter Care Teams Ent Physician Relationship Specialty Start Date End Date Lorna Bal APRN [address] [place] [address] PCP - General Family Medicine 05/27/18 documented as of this encounter
--- OUTSIDE RECORDS SUMMARY | 2023-11-23 16:42 | XMS_ITS | Encounter Summary ---
Author Organization [facility] [place] [address] Care Team Providers Care Dishtank Operator Name Role Phone Naina Lindsey MD Primary Care Provider [phone] Encounter Details Date Type Department Care Team (Late st Contact Info) Description 12/21/2013 1:30 PM EDT Ancillary Procedure [place] [phone] Chuckie Mayfield MD [facility] [place] [address] Social History Tobacco Use Types Packs/Day Years [...] EDT TH Visit (TeleHealth) [place] [address] Lilli Joy APRN [facility] [place] [address] 12/03/2023 12:30 PM EDT Office Visit [place] [address] Hollie Ambriz MD [facility] [place] [address] 12/03/2023 2:30 PM EDT Hospital En[place] [address] Andrade Melvin MD [facility] [place] [address] documented as of this encounter Procedures Procedure Name Priority Date/Time Associated Diagnosis Comments FILM LIBRARY STORAGE ONLY DX UPPER EXTREMITY Routine 12/21/2013 1:30 PM EDT documented in this encounter Results * Film Library- Storage Only DX Upper Extremity (12/21/2013 1:30 PM EDT) 08/10/2023 3:14 PM EDT Narrative [facility] 08/10/2023 3:14 PM EDT This exam is auto-finalizing. It's purpose is for storage only. Chuckie Mayfield MD IMG FILM LIBRARY ORD ERABLES [place], [place] documented in this encounter Visit Diagnoses Not on filedocumented in this encounter Care Teams Dishtank Operator Relationship Specialty Start Date End Date Naina Lindsey MD [address] [place] [address] PCP - General 03/19/10 08/25/16 documented as of this encounter
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
--- OUTSIDE RECORDS SUMMARY | 2023-11-23 16:42 | XMS_ITS | Encounter Summary ---
Author Organization [facility] [place] [address] Care Team Providers Care Recycling Technician Name Role Phone Naina Lindsey MD Primary Care Provider [phone] Encounter Details Date Type Department Care Team (Late st Contact Info) Description 05/11/2014 7:31 AM EST Anesthesia Event [place] [phone] Danielle Kwan MD [facility] [place] [address] Anesthesia Record Procedure Summary Procedure Name Responsible [...] 0731; metacarpal vein right (top of hand); qbbo-lcd-cksytm catheter system; 22 gauge; [place]; 05/12/14; 141605/11/14 [...] BILATERAL performed by BARRERA OLIVER [facility] MAIN OR ??? Apply of hip casts, two legs 08/15/2010 CAST APPLICATION, HIP SPICA, BOTH LEGS performed by BARRERA OLIVER at [facility] MAIN OR ??? Removal deep implant 08/15/2010 REMOVAL IMPLANT, DEEP, BRUNO performed by BARRERA OLIVER at [facility] MAIN OR ??? Osteotomy femur shaft/supracondy 08/15/2010 ??OSTEOTOMY, FEMUR SHAFT OR SUPRACONDYLAR W/O FIXATION performed by BARRERA OLIVER at [facility] MAIN OR History Substance Use Topics [...] full Cardiovascular Assessment: Pulmonary Assessment: [facility] Plan: ASA 2 general, with [...] and mother whom consented to blood products. [facility]. Assessment: documented in this encounter Plan of Treatment Upcoming Encounters Date Type Department Care Team (Late st Contact Info) Description 11/25/2023 2:00 PM EDT TH Visit (TeleHealth) [place] [address] Lilli Joy APRN [facility] [place] [address] 12/03/2023 12:30 PM EDT Office [place] [address] Hollie Ambriz MD [facility] [place] [address] 12/03/2023 2:30 PM EDT Hospital [place] [address] Andrade Melvin MD [facility] [place] [address] documented as of this encounter [...] mg documented in this encounter Care Teams Recycling Technician Relationship Specialty Start Date End Date Naina Lindsey MD [address] [place] [address] PCP - General 03/19/10 08/25/16 documented as of this encounter
--- OUTSIDE RECORDS SUMMARY | 2023-11-23 16:42 | XMS_ITS | Encounter Summary ---
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 Dotson Reason for Reprogramming: Pump alarm date approaching Diagnosis: Spacticity, traumatic head injury Telemetry Pre-programming Reading: Drug Concentration Daily Dose Baclofen 1,000 mcg/ ml 195.1 mcg/ day Telemetry Post-programming Reading: Drug Concentration Daily Dose Brand (B) or Compound (C) Lot number Baclofen 1,000 mcg/ ml 195.1 mcg/ day Compound #[id number] Simple Continuous Rx # [id number] Exp. 02/05/13 Pump Capacity: 40 ml Computer Predicted Residual Volume in Pump (ml): 4.5 ml Measured Residual volume in Pump (ml): 5.8 ml Medication or Dose Changes: no Is dose change > 30%? n/a Is concentration or drug different? no Empty syringe concentration verified by auto design checker: yes If concentration or drug is [...] instilled into the pump according to the adjunct communications faculty member's directions without difficulty. There was no evidence [...] will be arranged for refills as appropriate. LISSET BRANTLEY APRN documented in this encounter Plan of Treatment Upcoming Encounters Date Type Department Care Team (Late st Contact Info) Description 11/25/2023 2:00 PM EDT TH Visit (TeleHealth) [place] [address] Lilli Joy APRN [facility] [place] [place] [address] 12/03/2023 12:30 PM EDT Office Visit [place] [address] Hollie Ambriz MD [facility] [place] [address] 12/03/2023 2:30 PM EDT Hospital Encounter Radiology at [facility] [place] [phone] Andrade Melvin MD [facility] [place] [address] documented as of this encounter Procedures Procedure Name Priority Date/Time Associated Diagnosis Comments INTRATHECAL PUMP REFILL Routine 01/20/2013 4:15 PM EDT 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 01/20/2013 ??4:15 PM [facility] Refill of Intrathecal Pump with Reprogramming Procedure Note Tana Cavazos ? [id number] Date of Refill: January 20, 2013 Primary Superintendent Plant: LISSET BRANTLEY APRN Air Conditioning Service Technician: Dr. Dotson Reason for Reprogramming: ??Pump alarm date approaching Diagnosis: ??Spacticity, traumatic head injury Telemetry Pre-programming Reading: Drug Concentration Daily Dose Baclofen 1,000 mcg/ ml 195.1 mcg/ day ? Telemetry Post-programming Reading: ?? Drug Concentration Daily Dose Brand (B) or Compound (C) Lot number Baclofen 1,000 mcg/ ml 195.1 mcg/ day Compound #[id number] Simple Continuous ?? Rx # [id number] Exp. 02/05/13 ? Pump Capacity: ??40 ml Computer Predicted Residual Volume in Pump (ml): ??4.5 ml Measured Residual volume in Pump (ml): 5.8 ml Medication or Dose Changes: ?no Is dose change > 30%?n/a Is concentration or drug different? ??no Empty syringe concentration verified by auto design checker: ?? yes If concentration or drug [...] drapes were applied as provided with the ??Peerbytronic refill kit. A 22 gauge Persaud non-coring [...] instilled into the pump according to the adjunct communications faculty member's directions without difficulty. There was no evidence [...] will be arranged for refills as appropriate. LISSET BRANTLEY APRN Procedure Note Lisset Brantley APRN - 01/20/2013 3:32 PM EDT [facility] Refill of Intrathecal Pump with Reprogramming Procedure Note Tana Cavazos [id number] Date of Refill: January 20, 2013 Primary Superintendent Plant: LISSET BRANTLEY APRN Air Conditioning Service Technician: Dr. Dotson Reason for Reprogramming: Pump alarm date approaching Diagnosis: Spacticity, traumatic head injury Telemetry Pre-programming Reading: Drug Concentration Daily Dose Baclofen 1,000 mcg/ ml 195.1 mcg/ day Telemetry Post-programming Reading: Drug Concentration Daily Dose Brand (B) or Compound (C) Lot number Baclofen 1,000 mcg/ ml 195.1 mcg/ day Compound #[id number] Simple Continuous Rx # [id number] Exp. 02/05/13 Pump Capacity: 40 ml Computer Predicted Residual Volume in Pump (ml): 4.5 ml Measured Residual volume in Pump (ml): 5.8 ml Medication or Dose Changes: no Is dose change > 30%? n/a Is concentration or drug different? no Empty syringe concentration verified by auto design checker: yes If concentration or drug is [...] wasinstilled into the pump according to the adjunct communications faculty member's directions withoutdifficulty. There was no evidence of [...] procedure well [facility] Follow-up appointments will be arranged for refills asappropriate. LISSET BRANTLEY APRN Bigg Dunbar MD PROCEDURE/MINOR S URGICAL ORDERABLES [...] each documented in this encounter Care Teams Neurosurgical Physician Assistant Relationship Specialty Start Date End Date Naina Lindsey MD [address] [place] [address] PCP - General 03/19/10 08/25/16 documented as of this encounter
--- OUTSIDE RECORDS SUMMARY | 2023-11-23 16:42 | XMS_ITS | Encounter Summary ---
Author Organization [facility] [place] [address] Care Team Providers Care Patent Law Specialist Name Role Phone Naina Lindsey MD Primary Care Provider [phone] Reason for Visit * Reason Comments Other pump wean Encounter Details Date Type Department Care Team (Latest Contact Info) Description 02/09/2014 11:45 AM EDT Procedure [place] [phone] Donnell Dotson MD [facility] [place] [address] Traumatic brain injury, sequela; Abnormal involuntary movements(591.0) Discharge Disposition: Home Social History Tobacco Use [...] access to your electronic medical record at [facility] and the ability to communicate with [...] the instructions. Here is your activation code: [email or web address] Expires: 03/26/2014 12:29 PM Remember, my[facility] is NOT for urgent needs! Always dial 911 for medical emergencies. documented in this encounter Procedure Notes * Donnell Dotson MD - 02/09/2014 2:59 PM EDTAssociated Order(s): INTRATHECAL PUMP REPROGRAMMING Pre-Procedure Diagnose(s): Abnormal involuntary movements(781.0) Patient and mother coming today. Since he was last seen, the orthopedic surgeons and the rest of the team at [facility] have agreed that she no longer needs the intrathecal baclofen. She like to be tapered off the baclofen before the pump is basically no longer effective, 3 months from now. Looking at the [employer] website and calling the local Medtronic baclofen pump merchandiser retail representative, we decided to decrease her pump [...] EDT TH Visit (TeleHealth) Infectious Disease at [place] [phone] Lilli Joy APRN [facility] [place] [address] 12/03/2023 12:30 PM EDT Office Visit [place] [phone] Hollie Ambriz MD [facility] [place] [address] 12/03/2023 2:30 PM EDT Hospital Encounter [place] [address] Andrade Melvin MD [facility] [place] [address] documented as of this encounter Procedures Procedure [...] and the rest of the team at [facility] have agreed that she no longer needs the intrathecal baclofen. She like to be tapered off the baclofen before the pump is basically no longer effective, 3 months from now. Looking at the [employer] website and calling the local Medtronic baclofen pump merchandiser retail representative, we decided to decrease her pump [...] and the rest of the team at [facility] haveagreed that she no longer needs the intrathecal baclofen. She like to betapered off the baclofen before the pump is basically no longer effective,3 months from now. Looking at the [employer] website and calling the local Medtronic baclofenpump merchandiser retail representative, we decided to decrease her pump [...] movements documented in this encounter Care Teams Patent Law Specialist Relationship Specialty Start Date End Date Naina Lindsey MD [address] [place] [address] PCP - General 03/19/10 08/25/16 documented as of this encounter
--- OUTSIDE RECORDS SUMMARY | 2023-11-23 16:42 | XMS_ITS | Encounter Summary ---
Author Organization [facility] [place] [address] Care Team Providers Care Metal Rivet Machine Operator Name Role Phone Naina Lindsey MD Primary Care Provider Encounter Details Date Type Department Care Team (Late st Contact Info) Description 12/21/2013 1:40 PM EDT Ancillary Procedure [place] [phone] Chuckie Mayfield MD [facility] [place] [address] Social History Tobacco Use Types Packs/Day Years [...] EDT TH Visit (TeleHealth) [place] [address] Lilli Joy APRN [facility] [place] [address] 12/03/2023 12:30 PM EDT Office [place] [address] Hollie Ambriz MD [facility] [place] [address] 12/03/2023 2:30 PM EDT Hospital En[place] [address] Andrade Melvin MD [facility] [place] [address] documented as of this encounter Procedures Procedure Name Priority Date/Time Associated Diagnosis Comments FILM LIBRARY STORAGE ONLY DX WRIST Routine 12/21/2013 1:40 PM EDT documented in this encounter Results * Film Library- Storage Only DX Wrist (12/21/2013 1:40 PM EDT) 08/10/2023 3:14 PM EDT Narrative [facility] 08/10/2023 3:14 PM EDT This exam is auto-finalizing. It's purpose is for storage only. Chuckie Mayfield MD IMG FILM LIBRARY ORD ERABLES [place], [place] documented in this encounter Visit Diagnoses Not on filedocumented in this encounter Care Teams Metal Rivet Machine Operator Relationship Specialty Start Date End Date Naina Lindsey MD [address] [place] [address] PCP - General 03/19/10 08/25/16 documented as of this encounter
--- OUTSIDE RECORDS SUMMARY | 2023-11-23 16:42 | XMS_ITS | Encounter Summary ---
Author Organization [facility] [place] [address] Care Team Providers Care Immigration Manager Name Role Phone Naina Lindsey MD Primary Care Provider Encounter Details Date Type Department Care Team (Late st Contact Info) Description 02/27/2014 Telephone [place] [address] Donnell Dotson MD [facility] [place] [place] [address] Social History Tobacco Use Types Packs/Day Years [...] EDT TH Visit (TeleHealth) Infectious Disease at [address] Lilli Joy APRN [facility] [place] [address] 12/03/2023 12:30 PM EDT Office [place] [address] Hollie Ambriz MD [facility] [place] [address] 12/03/2023 2:30 PM EDT Hospital Encounter Radiology at [place] [address] Andrade Melvin MD [facility] [place] [address] documented as of this encounter Visit Diagnoses Not on filedocumented in this encounter Care Teams Immigration Manager Relationship Specialty Start Date End Date Naina Lindsey MD [address] [place] [address] [place] [address] PCP - General 03/19/10 08/25/16 documented as of this encounter
--- OUTSIDE RECORDS SUMMARY | 2023-11-23 16:42 | XMS_ITS | Encounter Summary ---
Author Organization [facility] [place] [address] Care Team Providers Care Implementation Advisor Name Role Phone Naina Lindsey MD Primary Care Provider [phone] Reason for Visit * Reason Onset Date Comments Medication Refill 11/08/2013 Encounter Details Date Type Department Care Team (Late st Contact Info) Description 11/08/2013 Refill [place] [address] Aida Carey, BI DEVELOPER Social History Tobacco Use Types Packs/Day Years [...] EDT TH Visit (TeleHealth) [place] [address] Lilli Joy, [facility] [place] [address] 12/03/2023 12:30 PM EDT Office [place] [address] Hollie Ambriz MD [facility] [place] [address] 12/03/2023 2:30 PM EDT Hospital [place] [address] Andrade Melvin MD [facility] [place] [address] documented as of this encounter Visit Diagnoses Not on filedocumented in this encounter Care Teams Implementation Advisor Relationship Specialty Start Date End Date Naina Lindsey MD [address] [place] [address] PCP - General 03/19/10 08/25/16 documented as of this encounter
--- OUTSIDE RECORDS SUMMARY | 2023-11-23 16:42 | XMS_ITS | Encounter Summary ---
Author Organization Formerly [facility] [place] [address] Care Team Providers Care Motor Grader Operator Name Role Phone Naina Lindsey MD Primary Care Provider [phone] Reason for Visit * Reason Comments Post-op Problem Encounter Details Date Type Department Care Team (Late st Contact Info) Description 05/20/2014 7:24 PM EST - 05/20/2014 9:57 PM EST Surgery [place] [address] Freddy Burciaga MD [facility] [address] [place] [address] @I & D, OPEN, DEEP ABSCESS, LUMBAR, [...] Routine, Hospital Performed Vendor / contact information: [facility] Patient location post discharge: home Service requested: IV abx Start date: 05/26/2014 Responsible MD post discharge contact info: WILL Smith (Edit) Referral to Home Health - at DISCHARGE Routine, Clinic Performed Agency name and contact information: [facility] Patient location post discharge: home What services are requested: Registered Nurse, Home Health Aide, Physical Therapy, Occupational Therapy Start date: 05/26/2014 Responsible MD post discharge contact info: PCP PATIENT'S LOCATION: Tana Shelton [address] [place] [phone] (home) In discussion with the attending physician, it is certified that this patient is under their care and that they, or a Nurse Practitioner,Clinical Nurse specialist or Physician Button Inspector who is working directly with them, [...] Continue with therapies OT: Continue with therapies GINNER: Continue support HOME HEALTH CARE AGENCY: [facility] [employer]. PHONE: [phone] FAX: [phone] Start of care: 05/26/14 Please note that any additional orders needs or changes will need to be obtained from this patient's PCP: MD Coby BRAGG DR / [facility] [id number] All VNA agencies which cover the area of patient's residence have been reviewed, either verbally or in writing, and patient/family have chosen the home health care agency noted Emergency contact: After hours and weekends, call the [facility] payloader machine operator at and ask them to page the neurosurgery resident presentation designer. documented in this encounter Medications at Time [...] (AVS) and given to the patient or client relations representative. 6) If VNA was ordered, [...] 0.9% 50 mL Mini-Bag Plus 2 g OhkzbhlnwlnH5F ??? baclofen 10 mg Oral Nightly ??? levonorgestrel-ethinyl estradiol 1 tablet Oral Daily ??? polyethylene glycol 17 g Oral Daily ??? sodium chloride 0.9 % 5 mL Intravenous BID ??? diaZEPam 5 mg Oral BID Continuous Infusions: ??? sodium chloride 0.9% with potassium chloride 20 mEq 50 mL/hr (06/01/14 8005) PRN Meds:acetaminophen OR acetaminophen, flu vaccine (36 [...] elevated HR this am S: Kenneth Rocco. [facility], [id number] singing ABCs and counting along with stretches [...] to d/chome with support and continued PT/OT/SAMPLE GRINDER/VNA services. Staff communication/Mobility Recommendations: Pt. Would benefit [...] timed interventions: 30 minutes for TherEx-F Pager: [phone] Mary Joe, OT Occupational Therapy Rehabilitation Department * Isra Perez RN - 06/01/2014 2:43 PM EST Patient Name: Tana Shelton Patient Age: 18 y.o. Birthdate: 1995 Admit date: 05/20/2014 Attending Physician: Jamaal Samuel MD OFFICE OF CARE MANAGEMENT Farhana Perez RN Pager: [phone] CLINICAL SCREENING REPRESENTATIVE PROGRESS NOTE e-DH reviewed. Report received from DEMI Sanchez. Patient continues to require acute inpatient care for the treatment of infection. Patient remains on triple abx while awaiting final cultures. [facility] and [facility] have been referred to for discharge. Met with patient's mother at bedside. Mom had multiple questions the other day regarding equipment for home. Mattress for hospital bed was ordered and delivered to home from [facility]. Tomasa Sling was ordered and is to be delivered by [facility] when it ships to [facility] warehouse. TLSO brace to be fitted by [employer]. Mom also inquired about a new motorized wheelchair. Called [facility] in [place] to see if patient would qualify, left message with Oliver- the rehab spec for [facility]. Patient will need a assessment and lot of paperwork to be filled out. Relayed this to patient's mother and she will look into this at a later date. Plan: CRC will continue to follow for coordination of care and to facilitate discharge planning. * Draius Maguire - 06/01/2014 6:44 AM EST Neurosurgery [...] 0.9% 50 mL Mini-Bag Plus 2 g HwpdkyryxhlT7S ??? baclofen 10 mg Oral Nightly ??? [...] has recovered and I can review the [facility] records and films * Natividad Esqueda, PT [...] family in a single story home in [place], [place]. Pt's mother reports that there is no stair requirement, and that she has all necessary equipment. Stairs: 0 without a rail to enter Baseline Mobility: Completely dependent for all care, home nursing VNA services 3x/week, school-based PT/OT/SAMPLE GRINDER, pt due to receive a communication device [...] than in previous treatment session, counting withthis signwriter during stretching Objective: Patient seen for 45 [...] internal rotators, adductors ?? Pt helped this signwriter with opposite UE when performing stretching as [...] session, playing with toys, playfully tricking this signwriter when counting during passive stretching, and helping [...] exercise Natividad Esqueda PT, DPT 05/31/2014 Pager: [phone] Physical Therapy Inpatient Rehabilitation Department * Nathalie [...] OF CARE MANAGEMENT Farhana Perez RN Pager: [phone] CLINICAL SCREENING REPRESENTATIVE PROGRESS NOTE e-DH reviewed. Report received from DEMI Sanchez. Patient continues to require acute inpatient care for the treatment of infection. Patient is on triple abx. Patient needs a new mattress for her hospital bed at home. Patient's mother would like order placed with [employer]. Order pended and booking sent via [employer] Plan: CRC will continue to follow for [...] to d/chome with support and continued PT/OT/SAMPLE GRINDER/VNA services. Staff communication/Mobility Recommendations: Pt. Would benefit [...] timed interventions: 45 minutes for TherEx Pager: [phone] Mary Joe OT Occupational Therapy Rehabilitation Department [...] 0.9% 50 mL Mini-Bag Plus 2 g AdjfvuzrjurL2B ??? baclofen 10 mg Oral Nightly ??? [...] OF CARE MANAGEMENT Farhana Perez RN Pager: [phone] CLINICAL SCREENING REPRESENTATIVE PROGRESS NOTE e-DH reviewed. Report received [...] as pt becomes available. Please contact this signwriter with any further questions or concerns. Thank you. Pager: [phone] Mary Joe OTR/L Occupational Therapy Inpatient Rehabilitation [...] family in a single story home in [place], [place]. Pt's mother reports that there is no stair requirement, and that she has all necessary equipment. Stairs: 0 without a rail to enter Baseline Mobility: Completely dependent for all care, home nursing VNA services 3x/week, school-based PT/OT/SAMPLE GRINDER, pt due to receive a communication device [...] pt very smiley today, counting with this signwriter during stretching, showing off her favorite toys [...] therapy and pt's mother verbalizes understanding. Assessment: Taan Shelton admitted for management of infected baclofen [...] exercise Natividad Esqueda PT, DPT 05/29/2014 Pager: [phone] Physical Therapy Inpatient Rehabilitation Department * Wai [...] not hesitate to page us on pager [phone] with further questions or concerns. Patient discussed with Dr. Wai Crabtree. Dimple Messina MD Fellow, Infectious Disease 05/29/2014 ID Staff: Discussed with Dr. Messina. Agree with current regimen. This will be a very difficult regimen at [facility] some further discussion is needed. [...] 0.9% 50 mL Mini-Bag Plus 2 g CluvxxpaygbY2G ??? baclofen 10 mg Oral Nightly ??? [...] 0.9% 50 mL Mini-Bag Plus 2 g QnuhivlkfkeE9F ??? baclofen 10 mg Oral Nightly ??? [...] CRC received call from EUNICE Hair, from [place], [place] or Asking for status as they will follow her after discharge for IV antibiotic treatment. She will need an OPAT order faxed to above agency when she is ready for discharge as well as administration teaching for home. When ready for discharge, [facility] [employer] PHONE: [phone] FAX: [phone] will also need to be updated. Referral had been made by previous CRC. Covering pager #[phone] for pager #[phone]. * Darius Maguire T - 05/27/2014 8:23 [...] 0.9% 50 mL Mini-Bag Plus 2 g CtstzhmgghsU0A ??? baclofen 10 mg Oral Nightly ??? [...] Dressing clean and dry Wound without fluctuance [address] Assessment/Plan:: 18 y.o. female s/p removal [...] family in a single story home in [place], [place]. Pt's mother reports that there is no stair requirement, and that she has all necessary equipment. Stairs: 0 without a rail to enter Baseline Mobility: Completely dependent for all care, home nursing VNA services 3x/week, school-based PT/OT/SAMPLE GRINDER, pt due to receive a communication device [...] exercise Natividad Esqueda PT, DPT 05/26/2014 Pager: [phone] Physical Therapy Inpatient Rehabilitation Department * Freddy Burciaga MD - 05/26/2014 6:27 AM EST Neurosurgery - Inpatient Progress Note ID: Tana Shelton, 18 y.o. female s/p removal of retained hardware, washout of infection 05/20 POD 6 Interval Hx: -ALEKSANDRA -Neurologically stable Objective: Medications: Scheduled Meds: ??? cefTAZidime (FORTAZ) 2g vial attach to sodium chloride 0.9% 50 mL Mini-Bag Plus 2 g TczgezvlfygG9U ??? baclofen 10 mg Oral Nightly ??? [...] (05/26) or when appropriate. Please page this signwriter if you have any questions, thank you. Natividad Esqueda PT Pager #[phone] Physical Therapy Inpatient Rehabilitation * Mary Joe, [...] to d/chome with support and continued PT/OT/SAMPLE GRINDER/VNA services. Spoke to CRC this about thoracic [...] timed interventions: 27 minutes for TherEx Pager: [phone] Mary Joe OT Occupational Therapy Rehabilitation Department [...] 0.9% 50 mL Mini-Bag Plus 2 g UkzcqunjedwZ9B ??? baclofen 10 mg Oral Nightly ??? [...] of Care Management Farhana Perez RN Pager: [phone] Clinical Taxonomy Teacher Home IV Antibiotic Therapy Referral Note. Report received from NeuroSurgery Team that patient will require continued home IV antibiotic therapy after discharge from the hospital. Met with patient/family to discuss vendor and visiting nurse choices for home IV antibiotic therapy. Reviewed Home Infusion Vendors and Home Health Agencies that serve patient???s address and accept patient???s insurance. Home Health Agency: Patient requested referral to [facility] [employer]. PHONE: [phone] FAX: [phone]. Referrals sent via [employer]. Home Infusion Vendor: Patient requested referral to [place], [place] [phone] or Fax: . Referrals sent via edischarge. [...] 0.9% 50 mL Mini-Bag Plus 2 g FzmqnhzkgfxJ6W ??? baclofen 10 mg Oral Nightly ??? [...] 0.9% 50 mL Mini-Bag Plus 2 g WknwtyglmpbE8Y ??? baclofen 10 mg Oral Nightly ??? [...] PM EST Office of Care Management Clinical Taxonomy Teacher Patient Name: Tana Shelton : 1995, 18 [...] None on File (x) HEALTH /PRESCRIPTION COVERAGE: [place] [facility] CURRENT HOME/COMMUNITY SERVICES/EQUIPMENT: DME: [facility] Hospital bed, wheelchair, tomasa lift, shower chair. Home Health Agency: [facility] PRIMARY CARE PHYSICIAN: NAINA LINDSEY MD [phone] POTENTIAL DISCHARGE NEEDS: Resume vna visits. Mother stated that she has [facility] - RN and Aide currently. Waiting to confirm this and pt needs. Might need home IV antibx. TRANSPORTATION @ D/C: family PLAN: CRC will continue to monitor progress, follow for continuity of care and assist with discharge planning while hospitalized Lesly Jesus RN Office of Care Management Clinical Taxonomy Teacher Covering for Farhana Chris [phone] Pager [phone] * Yandy Dasilva, PharmD - 05/22/2014 9:46 AM EST Clinical Pharmacist Note-Vanc Tana S Dirk [id number] 1995 Tana Barlowrd is a 18 y.o. [...] have. Alternately, during off-hours you may call [phone] to contact a pharmacist. Yandy Dasilva PHARMBenjamin Pager [phone] * Freddy Burciaga MD - 05/22/2014 6:59 [...] Clinically does not seem to be of LOAN SERVICE OFFICER origin. Continue triple antibiotics. ID consult. Cultures [...] given to Diana RN Peds. Transferred to [place] [address] with transport services, RN + family members. Please call Anurag ICU-RN at [phone] with regards to any questions post transfer. [...] mcL Appearance UA Hazy (*) Clear Spec [place] UA 1.026 1.002 - 1.030 Color UA [...] TANA SHELTON Ordered By: Freddy BURCIAGA MR#: [id number] LOC: OR /Sex: 1995 (18 years), Female PROCEDURE: Tissue Culture SOURCE: Back COLLECTED: 05/20/2014 20:20 FREE TEXT SOURCE: Lumbar Wound Culture STARTED: 05/20/2014 22:13 STAINS / PREPARATIONS Gram Stain Report Verified:05/20/2014 22:28 Few White Blood Cells seen No microorganisms seen. TISSUE CULTURE Result Value Ref Range Tissue Culture Value: Patient Name: TANA SHELTON Ordered By: EVITAFreddy IRENE MR#: [id number] LOC: OR /Sex: 1995 (18 years), Female [...] II initiated 0040: Report given to Jenn EMBEDDED SOFTWARE ENGINEER info reviewed/questions answered, pt ready for transfer [...] to the planned procedure. Hand Hygiene: The cooler service supervisor did perform hand hygiene prior to line insertion. Catheter type: PICC Lot number: [id number] Procedure Technique: Skin was prepped with chlorhexidine. [...] warm and was flushed. They called the presentation designer neurosurgeon, who advised that they come to [...] HEAD, BILATERAL performed by YAS OLIVER [facility] MAIN OR ??? Apply of hip casts, two legs 08/15/2010 CAST APPLICATION, HIP SPICA, BOTH LEGS performed by YAS OLIVER at [facility] MAIN OR ??? Removal deep implant 08/15/2010 REMOVAL IMPLANT, DEEP, BRUNO performed by YAS OLIVER at [facility] MAIN OR ??? Osteotomy femur shaft/supracondy 08/15/2010 ??OSTEOTOMY, FEMUR SHAFT OR SUPRACONDYLAR W/O FIXATION performed by YAS OLIVER at [facility] MAIN OR ??? Remove spinal canal catheter N/A 05/11/2014 REMOVAL OF INTRATHECAL OR EPIDURAL CATHETER performed by Jamaal Samuel MD at [facility] MAIN OR ??? Remove infusn device/pump N/A 05/11/2014 REMOVAL OF SPINE INFUSION PUMP performed by Jamaal Samuel MD at [facility] MAIN OR Medications: No current facility-administered [...] stepfather Tobacco exposure:No Day care/year in school: [employer] Physical Exam: Vitals: Patient Vitals for the [...] mcL Appearance UA Hazy (*) Clear Spec [place] UA 1.026 1.002 - 1.030 Color UA [...] intrathecal baclofen pump in [address] [facility]. Mother feels that the pump has [...] Size requested: twin bed Vendor Name/Contact information: [facility] (Edit) Referral for Outpatient Antibiotics Routine, Hospital Performed Vendor / contact information: [facility] Patient location post discharge: home Service requested: IV abx Start date: 05/26/2014 Responsible MD post discharge contact info: PCP New (Edit) Referral to Home Health - at DISCHARGE Routine, Clinic Performed Agency name and contact information: [facility] Patient location post discharge: home What services are requested: Registered Nurse, Home Health Aide, Physical Therapy, Occupational Therapy Start date: 06/06/2014 Responsible MD post discharge contact info: PCP PATIENT'S LOCATION: Tana Shelton [address] [place] [phone] (home) In discussion with the attending physician, it is certified that this patient is under their care and that they, or a Nurse Practitioner,Clinical Nurse specialist or Physician Button Inspector who is working directly with them, [...] Continue with therapies OT: Continue with therapies GINNER: Continue support HOME HEALTH CARE AGENCY: [facility] PHONE: [phone] FAX: [phone] Start of care: 05/26/14 Please note that any additional orders needs or changes will need to be obtained from this patient's PCP: MD Coby BRAGG DR / [place] [address] All VNA agencies which cover the area of patient's residence have been reviewed, either verbally or in writing, and patient/family have chosen the home health care agency noted Emergency contact: After hours and weekends, call the [facility] payloader machine operator at and ask them to page the neurosurgery resident presentation designer. * Plan of Care - Margot Monzon [...] yo. Supervision: Continuous; Moraima. Fannie at home carbon lamp cleaner at bedside this morning ; Mom arrived [...] (Interventions Implemented as Appropriate) 05/25/14 0527 05/26/14 4005 Plan of Care Review Plan of Care [...] AM EST Clinical Pharmacist Note-Vancomycin Tana Shelton [id number] 1995 Tana Shelton is a 18 y.o. [...] contact a pharmacist. Elmer Tobin, [place] Pager [phone] * Plan of Care - Leana Hicks [...] Outcome: Ongoing (Interventions Implemented as Appropriate) 05/27/14 1729 Infection, Risk/Actual (Adult, Obstetrics) Infection Prevention/Resolution/Control making progress toward outcome Problem: Fall/Trauma/Injury Risk (Pediatric) Goal: Identify Signs and Symptoms and Related Risk Factors Signs and symptoms and related risk factors are identified upon initiation of Human Response Clinical Practice Guideline (CPG) Outcome: Outcome (s) achieved Date Met: 05/27/14 05/22/14202905/25/14 748 Fall/Trauma/Injury Risk Personal Related Risk Factors (Fall/Trauma/Injury [...] Burciaga MD - 05/26/2014 4:52 PM EST [facility] Operative Note Patient Name: Tana Shelton : [id number] MR#: [id number] Case Date: 05/26/2014 Surgeon: Surgeon(s) and Role: [...] (Interventions Implemented as Appropriate) 05/22/14 0634 05/24/14 5494 Discharge Needs Assessment Concerns to be Addressed [...] Health Knowledge, Opportunity for Enhanced (Adult, NICU, [place], Obstetrics, Pediatric) Goal: Identify Signs and Symptoms and Related Risk Factors Signs and symptoms and related risk factors are identified upon initiation of Human Response Clinical Practice Guideline (CPG) Outcome: Ongoing (Interventions Implemented as Appropriate) * Plan of Care - Carisa Godwin RN - 05/25/2014 8:02 AM EST Problem: Health Knowledge, Opportunity for Enhanced (Adult, NICU, [place], Obstetrics, Pediatric) Goal: Knowledgeable about Health Subject/Topic Patient will demonstrate the desired outcomes. Outcome: Outcome (s) achieved Date Met: 05/25/14 05/25/14 0802 Health Knowledge, Opportunity for Enhanced (Adult, NICU, [place], Obstetrics, Pediatric) Knowledgeable about Health Subject/Topic achieves [...] bedside;lighting adjusted for task/safety;low bed;environmental modification 05/25/14 0503 Musculoskeletal Interventions Activity/Level of Assistance -- Self-Care [...] Outcome: Ongoing (Interventions Implemented as Appropriate) 05/24/14 2912 Plan of Care Review Plan of Care [...] BILATERAL performed by YAS OLIVER [facility] OR ??? Apply of hip casts, two legs 08/15/2010 CAST APPLICATION, HIP SPICA, BOTH LEGS performed by YAS OLIVER at [facility] OR ??? Removal deep implant 08/15/2010 REMOVAL IMPLANT, DEEP, BRUNO performed by YAS OLIVER at [facility] OR ??? Osteotomy femur shaft/supracondy 08/15/2010 ??OSTEOTOMY, FEMUR SHAFT OR SUPRACONDYLAR W/O FIXATION performed by YAS OLIVER at [facility] OR ??? Remove spinal canal catheter N/A 05/11/2014 REMOVAL OF INTRATHECAL OR EPIDURAL CATHETER performed by Jamaal Samuel MD at [facility] OR ??? Remove infusn device/pump N/A 05/11/2014 REMOVAL OF SPINE INFUSION PUMP performed by Jamaal Samuel MD at [facility] OR ? ? I&d, post spine, lumb/sacr/lumbosac N/A 05/20/2014 @I & D, OPEN, DEEP ABSCESS, LUMBAR, SACRAL, LUMBOSACRAL performed by Freddy Burciaga MD at [facility] OR ??? Repr, dural/csf leak, not req laminectomy N/A 05/20/2014 @REPAIR DURAL\CSF LEAK,NOT REQUIRING LAMINECTOMY performed by Freddy Burciaga MD at [facility] OR Social and Developmental History: Patient lives with her family in a single level home in [place], [place]. Pt's mother reports that their home [...] has an older sister who lives in [place] and 3 younger brothers. She likes to [...] RN and mom assist. Feeding: per mom: TEJON assist for use of utensils; not observed [...] d/c home with support and continued PT/OT/SAMPLE GRINDER/VNA services. Spoke with CRC about consultfor new [...] you for this occupational therapy consult. Pager: [phone] Mary Joe OT 05/24/2014 Occupational Therapy Rehabilitation [...] BILATERAL performed by YAS OLIVER [facility] OR ??? Apply of hip casts, two legs 08/15/2010 CAST APPLICATION, HIP SPICA, BOTH LEGS performed by YAS OLIVER at [facility] OR ??? Removal deep implant 08/15/2010 REMOVAL IMPLANT, DEEP, BRUNO performed by YAS OLIVER at [facility] OR ??? Osteotomy femur shaft/supracondy 08/15/2010 ??OSTEOTOMY, FEMUR SHAFT OR SUPRACONDYLAR W/O FIXATION performed by YAS OLIVER at [facility] OR ??? Remove spinal canal catheter N/A 05/11/2014 REMOVAL OF INTRATHECAL OR EPIDURAL CATHETER performed by Jamaal Samuel MD at [facility] OR ??? Remove infusn device/pump N/A 05/11/2014 REMOVAL OF SPINE INFUSION PUMP performed by Jamaal Samuel MD at [facility] OR ? ? I&d, post spine, lumb/sacr/lumbosac N/A 05/20/2014 @I & D, OPEN, DEEP ABSCESS, LUMBAR, SACRAL, LUMBOSACRAL performed by Freddy Burciaga MD at [facility] OR ??? Repr, dural/csf leak, not req laminectomy N/A 05/20/2014 @REPAIR DURAL\CSF LEAK,NOT REQUIRING LAMINECTOMY performed by Freddy Burciaga MD at [facility] MAIN OR Social History: Patient lives with her family in a single story home in [place], [place]. Pt's mother reports that there is no stair requirement, and that she has all necessary equipment. Stairs: 0 without a rail to enter Baseline Mobility: Completely dependent for all care, home nursing VNA services 3x/week, school-based PT/OT/SAMPLE GRINDER, pt due to receive a communication device [...] appropriate and joins in counting with this signwriter while stretching Objective: Pt seen for evaluation [...] minutes Natividad Esqueda PT, DPT 05/24/2014 Pager: [phone] Physical Therapy Inpatient Rehabilitation Department * Plan [...] based on it's ability to penetrate the LOAN SERVICE OFFICER. We need todiscuss whether to pursue an [...] to 40 mEq. One dose of IV npdouyieq14 mEq administered per orders. Re-check of K [...] placement of baclofen pump in 2007 in [place]. Due to lack of efficacy the baclofen [...] and Lipase were normal. Per her daycare scarfer, may be related to administration of oxycodone as this has been issue in the past. Cannotexclude component of baclofen withdrawal, but less likely. No current concern for acute LOAN SERVICE OFFICER process. - Serial exams. Ensure daily BMs [...] although it may not have the best LOAN SERVICE OFFICER penetration unless meninges are actually inflamed. - [...] fluid only. MD called for antiemetic and VA tylenol. Zofran given when order receivedand med [...] PREVENTION: Assistance: Full assist, mom at bedside. administrative aide will be coming in today to [...] Burciaga MD - 05/21/2014 11:53 AM EST [facility] Operative Note Patient Name: Tana Shelton : [id number] MR#: [id number] Case Date: 05/20/2014 - 05/21/2014 Surgeon: Surgeon(s) [...] HEAD, BILATERAL performed by YAS OLIVER [facility] MAIN OR ??? Apply of hip casts, two legs 08/15/2010 CAST APPLICATION, HIP SPICA, BOTH LEGS performed by YAS OLIVER at [facility] MAIN OR ??? Removal deep implant 08/15/2010 REMOVAL IMPLANT, DEEP, BRUNO performed by YAS OLIVER at [facility] MAIN OR ??? Osteotomy femur shaft/supracondy 08/15/2010 ??OSTEOTOMY, FEMUR SHAFT OR SUPRACONDYLAR W/O FIXATION performed by YAS OLIVER at [facility] OR ??? Remove spinal canal catheter N/A 05/11/2014 REMOVAL OF INTRATHECAL OR EPIDURAL CATHETER performed by Jamaal Samuel MD at [facility] OR ??? Remove infusn device/pump N/A 05/11/2014 REMOVAL OF SPINE INFUSION PUMP performed by Jamaal Samuel MD at [facility] OR No family history on [...] mcL Appearance UA Hazy (*) Clear Spec [place] UA 1.026 1.002 - 1.030 Color UA [...] TANA SHELTON Ordered By: Freddy BURCIAGA MR#: [id number] LOC: OR /Sex: 1995 (18 years), Female PROCEDURE: Tissue Culture SOURCE: Back COLLECTED: 05/20/2014 20:20 FREE TEXT SOURCE: Lumbar Wound Culture STARTED: 05/20/2014 22:13 STAINS / PREPARATIONS Gram Stain Report Verified:05/20/2014 22:28 Few White Blood Cells seen No microorganisms seen. TISSUE CULTURE Result Value Range Tissue Culture Value: Patient Name: TANA SHELTON Ordered By: Freddy BURCIAGA MR#: [id number] LOC: OR /Sex: 1995 (18 years), Female [...] for washout,wound repair, broad spectrum antibiotics. Travis Buricaga MD Neurosurgery * ED Triage - [place] [...] EDT TH Visit (TeleHealth) Infectious Disease at [place] [id number] Lilli Joy APRN [facility] [place] [address] 12/03/2023 12:30 PM EDT Office Visit Infectious Disease at [place] [id number] Hollie Ambriz MD [facility] [place] [address] 12/03/2023 2:30 PM EDT Hospital Encounter Radiology at [place] [phone] Andrade Melvin MD [facility] [place] [address] Pending Results Name Type Priority Associated Diagnoses [...] REQUIRING LAMINECTOMY Routine 05/20/2014 10:22 PM EST SHREDDING MACHINE TENDER CULTURE Routine 5 10:01 PM EST ANAEROBIC [...] * (ABNORMAL) Hemogram (06/02/2014 5:55 AM EST) Pathologist [facility] WBC 7.4 4.0 - 10.0 x10(3)/mcL [...] intervals supplied above were not validated at [facility]. Results from pediatric patients [...] the following links into your internet browser. [email or web address] Blood specimen (specimen) 06/02/2014 5:55 AM EST 06/02/2014 6:09 AM EST Narrative Resulting Agency Comment Spec In Lab S Alek Burciaga MD CHEMISTRY ORDERABLES Performing Organization Address [facility] de Phone Number [facility] * (ABNORMAL) Sedimentation rate (06/01/2014 12:40 PM EST) Sed Rate 46(H) 0 - 20 mm/hr [facility] Blood specimen (specimen) Venous Draw / Unknown 06/01/2014 12:40 PM EST 06/01/2014 12:48 PM EST Narrative Resulting Agency Comment Spec In Lab S Alek Burciaga MD HEMATOLOGY ORDERABLE S Performing Organization Address [facility] Phone Number [facility] * High Sensitivity CRP (06/01/2014 12:40 PM EST) CRP High Sens 15.4 mg/L [facility] Comment: Interpretations: 1) For accurate [...] and Cardiovascular Disease. ??Circulation 2003; 107:499-511 2. Claribel PM. ??Clinical applications of C-reactive protein for [...] MD HEMATOLOGY ORDERABLE S Performing Organization Address [facility] Co de Phone Number CERALIN TOMASENNIUM * [...] MD HEMATOLOGY ORDERABLE S Performing Organization Address [facility] de Phone Number CERALIN KEMPIUM * (ABNORMAL) Basic Metabolic Panel (non-fasting) (06/01/2014 12:40 PM EST) Glucose Lvl 95 60 - 199 mg/dL CERNER MILLENNIUM Comment:Diabetes: >=200 mg/d L plus symptoms BUN 4(L) 8 - 18 mg/dL CERNER MILLENNIUM Creatinine 0.38(L) 0.70 - 1.20 mg/dL CERNER MILLENNIUM Comment: Please note that the pediatric reference intervals supplied above were not validated at [facility]. Results from pediatric patients [...] the following links into your internet browser. [email or web address] Blood specimen (specimen) 06/01/2014 12:40 PM EST [...] intervals supplied above were not validated at [facility]. Results from pediatric patients [...] the following links into your internet browser. [email or web address][email or web address] Blood specimen (specimen) 05/30/2014 6:50 AM EST [...] (ABNORMAL) Hemogram (05/29/2014 7:13 AM EST) Pathologist [facility] WBC 6.6 4.0 - 10.0 x10(3)/mcL CERNER [...] S Alek Burciaga MD HEMATOLOGY ORDERABLE S [facility] * (ABNORMAL) Basic Metabolic Panel (non-fasting) (05/29/2014 7:13 AM EST) Pathologist [facility] Glucose Lvl 83 60 - 199 mg/dL CERNER MILLENNIUM Comment:Diabetes: >=200 mg/d L plus symptoms BUN 5(L) 8 - 18 mg/dL CERNER MILLENNIUM Creatinine 0.31(L) 0.70 - 1.20 mg/dL CERNER MILLENNIUM Comment: Please note that the pediatric reference intervals supplied above were not validated at [facility]. Results from pediatric patients [...] the following links into your internet browser. [email or web address] Blood specimen (specimen) 05/29/2014 7:13 AM EST 05/29/2014 7:13 AM EST Narrative Resulting Agency Comment Spec In Lab S Alek Burciaga MD CHEMISTRY ORDERABLES CERALIN MILLENNIUM * Differential, Automated (05/28/2014 9:00 AM [...] MD HEMATOLOGY ORDERABLE S Performing Organization Address City/[facility]/ZIP Co de Phone Number LINDA KEMPIUM * Vancomycin, trough (05/28/2014 9:00 [...] Burciaga MD CHEMISTRY ORDERABLES Performing Organization Address [facility] Co de Phone Number CERALIN KEMPIUM * (ABNORMAL) Basic Metabolic Panel (non-fasting) (05/28/2014 9:00 AM EST) Glucose Lvl 121 60 - 199 mg/dL CERNER MILLENNIUM Comment:Diabetes: >=200 mg/d L plus symptoms BUN 4(L) 8 - 18 mg/dL CERNER MILLENNIUM Creatinine 0.29(L) 0.70 - 1.20 mg/dL CERNER MILLENNIUM Comment: Please note that the pediatric reference intervals supplied above were not validated at [facility]. Results from pediatric patients [...] the following links into your internet browser. [email or web address] Blood specimen (specimen) 05/28/2014 9:00 AM EST [...] MD HEMATOLOGY ORDERABLE S Performing Organization Address [facility] Co de Phone Number [...] MD HEMATOLOGY ORDERABLE S Performing Organization Address [facility] Co de Phone Number [...] intervals supplied above were not validated at [facility]. Results from pediatric patients [...] the following links into your internet browser. [email or web address] Blood specimen (specimen) 05/27/2014 5:30 AM EST 05/27/2014 5:39 AM EST Narrative Resulting Agency Comment Spec In Lab S Alek Burciaga MD CHEMISTRY ORDERABLES [facility] * Anaerobic Culture (05/26/2014 5:30 PM EST) Pathologist [facility] Anaerobic Culture ? Patient Name: TANA SHELTON ? Ordered By: Freddy BURCIAGA ? MR#: [id number] ?LOC: ??[place] ? /Sex: ??1995 (18 years), [...] MD MICROBIOLOGY - GENER AL ORDERABLES [facility] * Tissue culture (05/26/2014 5:30 PM EST) Tissue Culture ? Patient Name: TANA SHELTON ? Ordered By: Freddy BURCIAGA ? MR#: [id number] ?LOC: ??[place] ? /Sex: ??1995 (18 years), [...] S ? Patient: TANA SHELTON ? MR#: [id number] ? S=Susceptible ??I=Intermediate ??R=Resistant ??NA=Not Applicable ? [...] ? Ordered By: Freddy BURCIAGA ? MR#: [id number] ?LOC: ??[place] ? /Sex: ??1995 (18 years), [...] ? Ordered By: Freddy BURCIAGA ? MR#: [id number] ?LOC: ??[place] ? /Sex: ??1995 (18 years), [...] plates. ? Patient: TANA SHELTON ? MR#: [id number] ? SUSCEPTIBILITY RESULTS ? Coagulase negative Staphylococcus [...] (1) ? Gentamicin is not appropriate for Dawson-therapy. ? (2) ? Penicillin resistant, Nafcillin susceptible Staphylococci are resistant to ? B-lactamase labile ? Penicillins including Ampicillin and Piperacillin, but susceptible to B- ? lactamase shelbie Penicillins ? (Nafcillin), B-lactamase inhibitor combinations, first and second ? generation Cephalosporins including ? Cefazolin, and to Cefepime and Meropenem. ? LINDA MILLENNIUM Specimen of unknown material (specimen) 05/26/2014 5:30 PM EST 05/26/2014 5:41 PM EST Comment:ANTERIOR FLANK Narrative Resulting Agency Comment Spec In Lab S Alek Burciaga MD MICROBIOLOGY - GENER AL ORDERABLES CERNER MILLENNIUM * Anaerobic Culture (05/26/2014 5:30 PM EST) Anaerobic Culture ? Patient Name: TANA SHELTON ? Ordered By: Freddy BURCIAGA ? MR#: [id number] ?LOC: ??[place] ? /Sex: ??1995 (18 years), [...] - GENER AL ORDERABLES Performing Organization Address City/State/[facility] Co de Phone Number LINDA BASHIR * Tissue culture (05/26/2014 5:30 PM EST) Tissue Culture ? Patient Name: TANA SHELTON ? Ordered By: Freddy BURCIAGA ? MR#: [id number] ?LOC: ??[place] ? /Sex: ??1995 (18 years), [...] Burciaga MD MICROBIOLOGY - GENER AL ORDERABLES [facility] * Antibody screen (05/26/2014 12:40 PM EST) Ab Screen Interp Negative [facility] Expires at [id number] on: [id number] [facility] Blood specimen (specimen) 05/26/2014 12:40 PM EST 05/26/2014 12:59 PM EST Narrative Resulting Agency Comment Spec In Lab S Alek Burciaga MD BLOOD BANK LAB ORDER MYRANDA Performing Organization Address [facility] Co de Phone Number [facility] * ABO/Rh Typing (05/26/2014 12:40 PM EST) ABORH Type O Pos [facility] Blood specimen (specimen) 05/26/2014 12:40 PM EST 05/26/2014 12:59 PM EST Narrative Resulting Agency Comment Spec In Lab S Alek Burciaga MD BLOOD BANK LAB ORDER MYRANDA Performing Organization Address [facility] Co de Phone Number [facility] * CT abdomen & pelvis WO contrast [...] MD HEMATOLOGY ORDERABLE S Performing Organization Address [facility]/ZIP Co de Phone Number CERNER MILLENNIUM * [...] intervals supplied above were not validated at [facility]. Results from pediatric patients [...] the following links into your internet browser. [email or web address] Blood specimen (specimen) 05/26/2014 4:15 AM EST 05/26/2014 4:35 AM EST Narrative Resulting Agency Comment Spec In Lab S Alek Burciaga MD CHEMISTRY ORDERABLES LINDA BASHIR * Place PICC Line: Contact Vascular Access Page [phone] (05/25/2014 4:01 PM EST) Narrative [place] [...] to the planned procedure. Hand Hygiene: The cooler service supervisor did perform hand hygiene prior to line insertion. Catheter type: PICC Lot number: [id number] Procedure Technique: Skin was prepped with chlorhexidine. [...] Narrative 05/25/2014 4:10 PM EST EXAMINATION: MR Amanda and thoracic WO Johnny CLINICAL HISTORY: wound infection s/p harware removel. ? intrathecal inf, focal. COMPARISON: Scoliosis radiographs from 12/16/2011 FINDINGS: [employer] views demonstrate severe rightward scoliotic deformity centered [...] No gross collections in the cervical spine. [employer] coronal image 8 of series 8 demonstrates [...] inf,focal. COMPARISON: Scoliosis radiographs from 12/16/2011 FINDINGS: [employer] views demonstrate severe rightward scoliotic deformity centered [...] abnormalities. No grosscollections in the cervical spine. [employer] coronal image 8 of series 8 demonstrates [...] Narrative 05/25/2014 4:10 PM EST See accession #[id number] for dictation of this study. This report was reviewed by Andrade Rebolledo MD at 05/25/2014 4:05 PM Film and interpretation reviewed by the attending Procedure Note Andrade Roth MD - 05/25/2014 See accession #[id number] for dictation of this study. This report was reviewed by Andrade Rebolledo MD at 05/25/2014 4:05 PM Film and interpretation reviewed by the attending Alek Sinha [facility] MRI ORDERABLES * Differential, Automated (05/25/2014 [...] MD HEMATOLOGY ORDERABLE S Performing Organization Address [facility]/ZIP Co de Phone Number CERALIN KEMPIUM * (ABNORMAL) Hemogram (05/25/2014 5:00 AM EST) Pathologist [facility] WBC 7.1 4.0 - 10.0 x10(3)/mcL CERNER [...] Agency Comment Spec In Lab S Alek Buricaga MD HEMATOLOGY ORDERABLE S Performing Organization Address [facility] de Phone Number CERALIN BASHIR * (ABNORMAL) Basic Metabolic Panel (non-fasting) (05/25/2014 5:00 AM EST) Glucose Lvl 87 60 - 199 mg/dL CERNER MILLENNIUM Comment:Diabetes: >=200 mg/d L plus symptoms BUN 6(L) 8 - 18 mg/dL CERNER MILLENNIUM Creatinine 0.27(L) 0.70 - 1.20 mg/dL CERNER MILLENNIUM Comment: Please note that the pediatric reference intervals supplied above were not validated at [facility]. Results from pediatric patients [...] the following links into your internet browser. [email or web address] Blood specimen (specimen) 05/25/2014 5:00 AM EST [...] intervals supplied above were not validated at [facility]. Results from pediatric patients [...] the following links into your internet browser. [email or web address] Blood specimen (specimen) 05/24/2014 12:42 PM EST 05/24/2014 12:42 PM EST Narrative Resulting Agency Comment Spec In Lab Freddy Alek Burciaga MD CHEMISTRY ORDERABLES Performing Organization Address [facility] Phone Number [facility] * Vancomycin, trough (05/24/2014 12:29 PM EST) [...] Burciaga MD CHEMISTRY ORDERABLES Performing Organization Address [facility] de Phone Number CERALIN BASHIR * (ABNORMAL) [...] Burciaga MD CHEMISTRY ORDERABLES Performing Organization Address [facility] Co de Phone Number CERALIN TOMASENNIUM * [...] Burciaga MD CHEMISTRY ORDERABLES Performing Organization Address [facility] Co de Phone Number CERALIN TOMASENNIUM * (ABNORMAL) Phosphorus (05/22/2014 12:45 PM EST) Phosphorus 2.2(L) 2.5 - 4.5 mg/dL CERNER MILLENNIUM Blood specimen (specimen) Venous Draw / Unknown 05/22/2014 12:45 PM EST 05/22/2014 1:03 PM EST Narrative Resulting Agency Comment Spec In Lab Lucho Smith MD CHEMISTRY ORDERABLES Performing Organization Address [facility] Co de Phone Number CERNER MILLENNIUM * Magnesium (05/22/2014 12:45 PM EST) Magnesium 0.69 0.69 - 1.07 mmol/L CERNER MILLENNIUM Blood specimen (specimen) Venous Draw / Unknown 05/22/2014 12:45 PM EST 05/22/2014 1:03 PM EST Narrative Resulting Agency Comment Spec In Lab Lucho Smith MD CHEMISTRY ORDERABLES Performing Organization Address [facility] de Phone Number [facility] * Lipase (05/22/2014 12:45 PM EST) Pathologist [facility] Lipase 44 0 - 60 unit/L CERNER MILLENNIUM Blood specimen (specimen) 05/22/2014 12:45 PM EST 05/22/2014 1:03 PM EST Narrative Resulting Agency Comment Spec In Lab Lucho Smith MD CHEMISTRY ORDERABLES Performing Organization Address [facility] Phone Number [facility] * Amylase (05/22/2014 12:45 PM EST) Pathologist [facility] Amylase 89 28 - 100 unit/L [facility] M[facility] Blood specimen (specimen) 05/22/2014 12:45 PM EST 05/22/2014 1:03 PM EST Narrative Resulting Agency Comment Spec In Lab Lucho Smith MD CHEMISTRY ORDERABLES Performing Organization Address [facility] Phone Number [facility]ER[facility] * (ABNORMAL) Comprehensive metabolic panel (non-fasting) (05/22/2014 12:45 PM EST) Pathologist [facility] Glucose Lvl 81 60 - 199 mg/dL [facility] MILLENNIUM Comment:Diabetes: >=200 mg/d L plus symptoms BUN 2(L) 8 - 18 mg/dL CERNER MILLENNIUM Creatinine 0.31(L) 0.70 - 1.20 mg/dL CERNER MILLENNIUM Comment: Please note that the pediatric reference intervals supplied above were not validated at [facility]. Results from pediatric patients [...] the following links into your internet browser. [email or web address] Blood specimen (specimen) 05/22/2014 12:45 PM EST [...] MD HEMATOLOGY ORDERABLE S Performing Organization Address [facility] de Phone Number [facility] * Vancomycin, trough (05/22/2014 6:10 AM EST) Vanc Trough 6.1 mg/L [facility] Comment: Therapeutic range for complicated infections [...] Burciaga MD CHEMISTRY ORDERABLES Performing Organization Address [facility] de Phone Number [facility] * (ABNORMAL) Basic Metabolic Panel (non-fasting) (05/22/2014 6:10 AM EST) Glucose Lvl 86 60 - 199 mg/dL [facility] M[facility]ENNIUM Comment:Diabetes: >=200 mg/d L plus symptoms BUN 3(L) 8 - 18 mg/dL CERNER MILLENNIUM Creatinine 0.27(L) 0.70 - 1.20 mg/dL CERNER MILLENNIUM Comment: Please note that the pediatric reference intervals supplied above were not validated at [facility]. Results from pediatric patients should be interpreted in conjunction to the patient's age, height and muscle mass. Sodium 141 135 - 145 mmol/L [facility] MILLENNIUM Potassium 2.9(Criti dean) 3.5 - 5.0 [...] the following links into your internet browser. [email or web address] Blood specimen (specimen) 05/22/2014 6:10 AM EST [...] intervals supplied above were not validated at [facility]. Results from pediatric patients [...] the following links into your internet browser. [email or web address] Blood specimen (specimen) 05/21/2014 4:23 AM EST 05/21/2014 4:38 AM EST Narrative Resulting Agency Comment Spec In Lab Freddy Burciaga MD CHEMISTRY ORDERABLES [facility] * Video Library Assistant Culture (05/20/2014 10:01 PM EST) Video Library Assistant Culture ? Patient Name: TANA SHELTON ? Ordered By: Freddy BURCIAGA ? MR#: [id number] ?LOC: ??[place] ? /Sex: ??1995 (18 years), ? Female ? PROCEDURE: Video Library Assistant Culture ?SOURCE: Other ? COLLECTED: 05/20/2014 22:01 [...] ? Ordered By: Freddy BURCIAGA ? MR#: [id number] ?LOC: ??[place] ? /Sex: ??1995 (18 years), [...] MD MICROBIOLOGY - GENER AL ORDERABLES [facility] * Tissue culture (05/20/2014 9:25 PM EST) Tissue Culture ? Patient Name: TANA SHELTON ? Ordered By: Freddy BURCIAGA ? MR#: [id number] ?LOC: ??[place] ? /Sex: ??1995 (18 years), [...] ? Patient: TANA SHELTON S ? MR#: [id number] ? S=Susceptible ??I=Intermediate ??R=Resistant ??NA=Not Applicable ? [...] ? Ordered By: Freddy BURCIAGA ? MR#: [id number] ?LOC: ??[place] ? /Sex: ??1995 (18 years), [...] ? Ordered By: Freddy BURCIAGA ? MR#: [id number] ?LOC: ??[place] ? /Sex: ??1995 (18 years), [...] ? Ordered By: BELKIS LOUIE ? MR#: [id number] ?LOC: ??[place] ? /Sex: ??1995 (18 years), ? Female ? PROCEDURE: Urine Culture ?SOURCE: U [facility] ? COLLECTED: 05/20/2014 18:46 ? STARTED: 05/20/2014 [...] Louie MD MICROBIOLOGY - GENER AL ORDERABLES [facility] THOMENNIUM * (ABNORMAL) Urinalysis with microscopic (05/20/2014 [...] Appearance UA Hazy(A) Clear CERNER MILLENNIUM Spec [place] UA 1.026 1.002 - 1.030 CERNER MILLENNIUM [...] In Lab Belkis Louie MD URINE ORDERABLES [facility] VIRIDIANAIUM * L-Lactate2 Whole Blood (05/20/2014 6:17 PM EST) Lactate WB 1.6 0.5 - 2.2 mmol/L LINDA BASHIR Blood specimen (specimen) 05/20/2014 6:17 PM EST 05/20/2014 6:17 PM EST Belkis Louie MD CHEMISTRY ORDERABLES [facility] * Blood culture (05/20/2014 6:00 PM EST) Blood Culture ? Patient Name: TANA SHELTON ? Ordered By: BELKIS LOUIE ? MR#: [id number] ?LOC: ??[place] ? /Sex: ??1995 (18 years), [...] MD HEMATOLOGY ORDERABLE S Performing Organization Address City/[facility] Co de Phone Number CERALIN TOMASENNIUM * (ABNORMAL) Hemogram (05/20/2014 5:15 PM EST) [...] MD HEMATOLOGY ORDERABLE S Performing Organization Address City/[facility] de Phone Number LINDA KEMPIUM * Blood culture (05/20/2014 5:15 PM EST) Blood Culture ? Patient Name: TANA SHELTON ? Ordered By: BELKIS LOIUE ? MR#: [id number] ?LOC: ??[place] ? /Sex: ??1995 (18 years), [...] ? No growth at 4 days. ? [facility] Blood specimen (specimen) STRUCTURE OF LEFT HAND / Unknown 05/20/2014 5:15 PM EST 05/20/2014 7:17 PM EST Comment:HOLD UNTIL MD HULL Narrative Resulting Agency Comment Spec In Lab Belkis Louie MD MICROBIOLOGY - BLOOD ORDERABLES [facility] * Glucose, random (05/20/2014 5:15 PM EST) Glucose Lvl 81 60 - 199 mg/dL [facility] Comment:Diabetes: >=200 mg/d L plus symptoms Blood specimen (specimen) 05/20/2014 5:15 PM EST 05/20/2014 5:31 PM EST Narrative Resulting Agency Comment Spec In Lab Belkis Louie MD CHEMISTRY ORDERABLES Performing Organization Address [facility] de Phone Number [facility] * (ABNORMAL) Creatinine (05/20/2014 5:15 PM EST) Creatinine 0.37(L) 0.70 - 1.20 mg/dL [facility] Comment: Please note that the pediatric reference intervals supplied above were not validated at [facility]. Results from pediatric patients should be interpreted in conjunction to the patient's age, height and muscle mass. Estimated GFR >60 >=60 [facility] Comment: This estimated GFR (eGFR) value was [...] the following links into your internet browser. [email or web address] Blood specimen (specimen) 05/20/2014 5:15 PM EST 05/20/2014 5:31 PM EST Narrative Resulting Agency Comment Spec In Lab Belkis Louie MD CHEMISTRY ORDERABLES Performing Organization Address [facility] de Phone Number [facility] * BUN (05/20/2014 5:15 PM EST) BUN 9 8 - 18 mg/dL [facility] Blood specimen (specimen) 05/20/2014 5:15 PM EST 05/20/2014 5:31 PM EST Narrative Resulting Agency Comment Spec In Lab Belkis Louie MD CHEMISTRY ORDERABLES Performing Organization Address City/[facility]/ZIP Co de Phone Number LINDA BASHIR * [...] Louie MD CHEMISTRY ORDERABLES Performing Organization Address [facility] Co de Phone Number LINDA BASHIR documented [...] Nely Boss, Indication for (Active or Suspected): 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/Meningitis 0616 (Given - Provider: Linsey Mcintyre RN)1446 [...] RN)2100 (Given - Provider: Linsey Mcintyre RN) 09 [...] Provider: Dolores Patino RN)1758 (Given - Provider: Doloers Patino RN) 0142 (Given - Provider: Linsey Mcintyre RN)1027 (Given - Provider: Yas Cam RN)1817 (Given - Provider: Dolores Patino RN) 0120 (Given - Provider: Margot Monzon RN)0836 (Given - Provider: Hedy Vazquez, EUNICE) Continuous Medication Order 05/31/2014 06/01/2014 06/02/2014 sodium chloride 0.9% with potassium chloride 20 mEq infusion (CANCELED) 50 mL/hr, Intravenous, CONTINUOUS, Starting on Thu15 at 1830, Until Thu06/02/14 at 1832 1244 [...] Routine documented in this encounter Care Teams Motor Grader Operator Relationship Specialty Start Date End Date Naina Lindsey MD [facility] [address] PCP - General 03/19/10 08/25/16 documented as of this encounter
--- OUTSIDE RECORDS SUMMARY | 2023-11-23 16:42 | XMS_ITS | Encounter Summary ---
Author Organization [facility] Benjamin [place] [address] Care Team Providers Care Embroidery Operator Name Role Phone Naina Lindsey MD Primary Care Provider [phone] Encounter Details Date Type Department Care Team (Late st Contact Info) Description 03/03/2014 External Results [place] [phone] Donnell Dotson MD [facility] [place] [address] Social History Tobacco Use Types Packs/Day Years [...] EDT TH Visit (TeleHealth) [place] [phone] Lilli Joy APRN [facility] [place] [address] 12/03/2023 12:30 PM EDT Office Visit Infectious Disease at [place] [phone] Hollie Ambriz MD [facility] [place] [address] 12/03/2023 2:30 PM EDT Hospital Encounter Radiology at [place] [phone] Andrade Melvin MD [facility] [place] [address] documented as of this encounter Procedures Procedure Name Priority Date/Time Associated Diagnosis Comments IMPLANTABLE DEVICES SCAN Routine 02/28/2014 8:00 AM EST IMPLANTABLE DEVICES SCAN Routine 02/15/2014 8:41 AM EDT IMPLANTABLE DEVICES SCAN Routine 02/09/2014 8:42 AM EDT IMPLANTABLE DEVICES SCAN Routine 01/25/2014 9:19 AM EDT documented in this encounter Visit Diagnoses Not on filedocumented in this encounter Care Teams Embroidery Operator Relationship Specialty Start Date End Date Naina Lindsey MD [address] [place] [address] PCP - General 03/19/10 08/25/16 documented as of this encounter
--- OUTSIDE RECORDS SUMMARY | 2023-11-23 16:42 | XMS_ITS | Encounter Summary ---
Author Organization [facility] [place] [address] Care Team Providers Care Marsh Buggy Operator Name Role Phone Naina Lindsey MD Primary Care Provider [phone] Encounter Details Date Type Department Care Team (Late st Contact Info) Description 03/10/2014 Orders Only Pediatric [place] [phone] Alek Sinha [facility] [place] [address] Pre-op chest exam; Pre-op evaluation Social History [...] EDT TH Visit (TeleHealth) Infectious [place] [phone] Lilli Joy APPRENTICE JOCKEY [facility] [place] [address] 12/03/2023 12:30 PM EDT Office Visit Infectious Disease at [place] [phone] Hollie Ambriz MD [facility] [place] [address] 12/03/2023 2:30 PM EDT Hospital Encounter [place] [address] Andrade Melvin MD [facility] [place] [address] documented as of this encounter Visit Diagnoses Diagnosis Pre-op chest exam Pre-operative respiratory examination Pre-op evaluation Preoperative examination, unspecified documented in this encounter Care Teams Marsh Buggy Operator Relationship Specialty Start Date End Date Naina Lindsey MD [address] [place], [place] [address] [address] PCP - General 03/19/10 08/25/16 documented as of this encounter
--- OUTSIDE RECORDS SUMMARY | 2023-11-23 16:42 | XMS_ITS | Encounter Summary ---
Author Organization [facility] [place] [address] Care Team Providers Care Speech Professor Name Role Phone Naina Lindsey MD Primary Care Provider [phone] Encounter Details Date Type Department Care Team (Late st Contact Info) Description 05/03/2014 Unscheduled Encounter [place] [address] Alek Sinha, TECHNICAL EDUCATION TEACHER [facility] [place] [address] Spasticity Social History Tobacco Use Types Packs/Day [...] her tone. She has been seen at [facility] by Barron Dotson who has weaned the pump at mothers request in preporation for pump removal. Mother reports that Taan has been generally well and that she [...] EDT TH Visit (TeleHealth) [place] [address] [facility] [place] [address] 12/03/2023 12:30 PM EDT Office Visit Infectious Disease at [place] [phone] [facility] [place] [address] 12/03/2023 2:30 PM EDT Hospital Encounter Radiology at [place] [phone] [facility] [place] [address] documented as of this encounter Visit Diagnoses Diagnosis Spasticity Abnormal involuntary movements documented in this encounter Care Teams Speech Professor Relationship Specialty Start Date End Date Naina Lindsey MD [address] [place] [address] [place] [address] PCP - General 03/19/10 08/25/16 documented as of this encounter
--- OUTSIDE RECORDS SUMMARY | 2023-11-23 16:42 | XMS_ITS | Encounter Summary ---
Author Organization [facility] [place] [address] Care Team Providers Care Energy Economist Name Role Phone Naina Lindsey MD Primary Care Provider [phone] Encounter Details Date Type Department Care Team (Late st Contact Info) Description 12/22/2012 Orders Only [place] [phone] Christiano Floyd MD [facility] [place] [address] Social History Tobacco Use Types Packs/Day Years [...] EDT TH Visit (TeleHealth) [place] [phone] Lilli Joy APRN [facility] [place] [address] 12/03/2023 12:30 PM EDT Office [place] [phone] Hollie Ambriz MD [facility] [place] [address] 12/03/2023 2:30 PM EDT Hospital [place] [phone] Andrade Melvin MD [facility] [place] [address] documented as of this encounter Visit Diagnoses Not on filedocumented in this encounter Care Teams Energy Economist Relationship Specialty Start Date End Date Naina Lindsey MD [address] [place] [address] PCP - General 03/19/10 08/25/16 documented as of this encounter
--- OUTSIDE RECORDS SUMMARY | 2023-11-23 16:42 | XMS_ITS | Encounter Summary ---
Author Organization [facility] Address [facility] [place] [address] Care Team Providers Care Employee Communications Specialist Name Role Phone Naina Lindsey MD Primary Care Provider [phone] Reason for Referral * Consultation (Routine) - Closed Specialty Diagnoses / Procedures Referred By Contac t Referred To Contact Pediatric Neurosurgery Diagnoses Baclofen pump failure, initial encounter Donnell Dotson MD [facility] [place] [address] Jamaal Samuel MD [facility] [place] [address] Referral ID Status Reason Start Date Expiration Date V isits Requested Visits Authorized [id number] Closed Consult, Test & Treat 02/15/2014 08/14/2014 1 1 Encounter Details Date Type Department Care Team (Late st Contact Info) Description 02/15/2014 Orders [place] [address] Donnell Dotson MD [facility] [place] [phone] Baclofen pump failure, initial encounter Social History [...] EDT TH Visit (TeleHealth) Infectious Disease at [place] [address] Lilli Joy APRN [facility] [place] [address] 12/03/2023 12:30 PM EDT Office Visit Infectious Disease at [place] [address] Hollie Ambriz MD [facility] [place] [address] 12/03/2023 2:30 PM EDT Hospital Encounter Radiology at [place] [address] Andrade Melvin MD [facility] [place] [address] Scheduled Referrals Name Type Priority Associated Diagnoses Order Schedule Referral to Pediatric Neurosurgery Outpatient Referral Routine Baclofen pump failure, initial encounter Ordered: 02/15/2014 documented as of this encounter Visit Diagnoses Diagnosis Baclofen pump failure, initial encounter documented in this encounter Care Teams Employee Communications Specialist Relationship Specialty Start Date End Date Naina Lindsey MD [address] [place] [address] [place] [address] PCP - General 03/19/10 08/25/16 documented as of this encounter
--- OUTSIDE RECORDS SUMMARY | 2023-11-23 16:42 | XMS_ITS | Encounter Summary ---
[place] [address] Care Team Providers Care Regulatory Submissions Associate Name Role Phone Naina Lindsey MD Primary Care Provider [phone] Reason for Visit * Reason Comments Pain Encounter Details Date Type Department Care Team (Latest Contact Info) Description 01/25/2014 4:00 PM EDT Procedure [place] [phone] [facility] [place] [place] [address] Traumatic brain injury, subsequent encounter (Primary Dx) [...] Pump Reprogramming Only Procedure Note Tana Cavazos [id number] Date of Refill: January 25, 2014 Primary Multiple Needle Stitcher: KAREN EARLY DO Carbon Furnace Operator Helper: Donnell Dotson MD Reason for Reprogramming: NA 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 Prior to this surgery the patient [...] available to conference the patient's physicians at [facility] as this decision is made. The mother will contact the orthopedic surgeon who performed the procedure to get his input as to whether he feels the baclofen has been helping. She will also request referral to a pediatric physiatry doctor at [facility] and will contact us back with [...] EDT TH Visit (TeleHealth) [place] [address] Lilli Joy APRN [facility] [place] [address] 12/03/2023 12:30 PM EDT Office [place] [phone] Hollie Ambriz MD [facility] [place] [address] 12/03/2023 2:30 PM EDT Hospital [place] [address] Andrade Melvin MD [facility] [place] [address] documented as of this encounter Visit Diagnoses Diagnosis Traumatic brain injury, subsequent encounter- Primary documented in this encounter Care Teams Regulatory Submissions Associate Relationship Specialty Start Date End Date Naina Lindsey MD [address] [place] [address] [place] [address] PCP - General 03/19/10 08/25/16 documented as of this encounter
--- OUTSIDE RECORDS SUMMARY | 2023-11-23 16:42 | XMS_ITS | Encounter Summary ---
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 Marino Mva Reactor Operator: Chelsea Alva Reason for Reprogramming or Adjustment: Refill Rate Adjustment: No Diagnosis: Spasticity Concomitant Medical Problems: Telemetry Pre-programming Reading: Drug: Baclofen Concentration: 1000 mcg/ml Dose Delivery per day: 195.1 mcg/day Infusion Mode: simple continuous Telemetry Post-programming Reading: Drug: Baclofen Concentration: 1000 mcg/ml (RX #[id number], discard date 08/28/12) Dose Delivery per day: 195.1 mcg/day Infusion Mode: simple continuous Pump Capacity: [] 20 ml [xxx] 40 ml Expected Faxon Volume this visit: 2.6 ml Actual Faxon Volume this visit: 3.5 ml Medication or [...] drapes were applied as provided with the Ced[employer] In[employer]red System[employer] refill kit. A 22 gauge Persaud non-coring [...] instilled into the pump according to the oracle endeca consultant's directions without difficulty. There was no evidence [...] EDT TH Visit (TeleHealth) Infectious Disease at [place] [phone] Lilli Joy APRN [facility] [place] [address] 12/03/2023 12:30 PM EDT Office Visit Infectious Disease at [place] [phone] Hollie Ambriz MD [facility] [place] [address] 12/03/2023 2:30 PM EDT Hospital Encounter Radiology at [address] Andrade Melvin MD [facility] [place] [address] documented as of this encounter Procedures Procedure [...] Pump Reprogramming or Adjustment Tana Hayes Dirk [id number] Date of Programming/Adjustment: 07/22/12 Primary Sports Attorney: ??Dr. Marino Mva Reactor Operator: ??Chelsea Alva Reason for Reprogramming or Adjustment: Refill Rate Adjustment: No Diagnosis: Spasticity Concomitant Medical Problems: ?? Telemetry Pre-programming Reading: ?? Drug: Baclofen Concentration: 1000 mcg/ml Dose Delivery per day: 195.1 mcg/day Infusion Mode: ?? simple continuous ?? Telemetry Post-programming Reading: ?? Drug: Baclofen Concentration: 1000 mcg/ml (RX #[id number], discard date 08/28/12) Dose Delivery per day: 195.1 mcg/day Infusion Mode: ?? simple continuous ? Pump Capacity: [] 20 ml [xxx] 40 ml Expected Faxon Volume this visit: 2.6 ml Actual Faxon Volume this visit: 3.5 ml Medication or [...] drapes were applied as provided with the [employer] refill kit. A 22 gauge Persaud non-coring [...] instilled into the pump according to the oracle endeca consultant's directions without difficulty. There was no evidence [...] Intrathecal Pump Reprogramming or Adjustment Tana Cavazos [id number] Date of Programming/Adjustment: 07/22/12 Primary Sports Attorney: Dr. Marino Mva Reactor Operator: Chelsea Alva Reason for Reprogramming or Adjustment: Refill Rate Adjustment: No Diagnosis: Spasticity Concomitant Medical Problems: Telemetry Pre-programming Reading: Drug: Baclofen Concentration: 1000 mcg/ml Dose Delivery per day: 195.1 mcg/day Infusion Mode: simple continuous Telemetry Post-programming Reading: Drug: Baclofen Concentration: 1000 mcg/ml (RX #[id number], discard date 08/28/12) Dose Delivery per day: 195.1 mcg/day Infusion Mode: simple continuous Pump Capacity: [] 20 ml [xxx] 40 ml Expected Faxon Volume this visit: 2.6 ml Actual Faxon Volume this visit: 3.5 ml Medication or [...] Baclofen 1000 mcg/ml - 40 ml - RX#[id number] Given 07/22/2012 9:33 AM EDT 1 each documented in this encounter Care Teams Pharmacy Technologist Relationship Specialty Start Date End Date Naina Lindsey MD [address] [place] [address] PCP - General 03/19/10 08/25/16 documented as of this encounter
--- OUTSIDE RECORDS SUMMARY | 2023-11-23 16:43 | XMS_ITS | Encounter Summary ---
Author Organization [facility] Address [facility] [place] [address] Care Team Providers Care Brake Engineer Name Role Phone Naina Lindsey MD Primary Care Provider [phone] Reason for Visit * Reason Comments Foot Swelling Encounter Details Date Type Department Care Team (Late st Contact Info) Description 11/04/2010 3:05 PM EDT [place] [phone] Barrera Oliver MD [facility] DR OR[place] [address] Acquired dysplasia of hip, bilateral; Edema leg; [...] will be constituted in a cast and infrastructure tech with whom I spoke did not feel [...] EDT TH Visit (TeleHealth) [place] [address] Lilli Joy [address]N [facility] [place] [address] 12/03/2023 12:30 PM EDT Office Visit Infectious Disease at [place] [phone] Hollie Ambriz MD [facility] [place] [address] 12/03/2023 2:30 PM EDT Hospital Encounter Radiology at [place] [phone] Andrade Melvin MD [facility] [place] [address] documented as of this encounter Results * Duplex for DVT, Leg, Unilat (11/04/2010 3:55 PM EDT) VB Text Report Department: Vascular Surgery Lab Patient: [id number] (TANA SHELTON) CPT Code: 36079 ICD-9: 729.81 Referring Physician: BARRERA OLIVER Indication: [...] consciousness documented in this encounter Care Teams Brake Engineer Relationship Specialty Start Date End Date Naina Lindsey MD [address] [place] [address] PCP - General 03/19/10 08/25/16 documented as of this encounter
--- OUTSIDE RECORDS SUMMARY | 2023-11-23 16:43 | XMS_ITS | Encounter Summary ---
Author Organization [facility] [place] [address] Care Team Providers Care Appeals And Generalist Clerk Name Role Phone Naina Lindsey MD Primary Care Provider [phone] Encounter Details Date Type Department Care Team (Late st Contact Info) Description 09/27/2010 Orders [place] [phone] Yas Ramirez MD [facility] [place] [address] Muscle spasticity; Acquired dysplasia of hip, bilateral; [...] Visit (TeleHealth) [place] [phone] Lilli Joy APRN [facility] [place] [address] 12/03/2023 12:30 PM EDT Office Visit Infectious Disease at [place] [phone] Hollie Ambriz MD [facility] [place] [address] 12/03/2023 2:30 PM EDT Hospital Encounter Radiology at [place] [phone] Andrade Melvin MD [facility] [place] [address] documented as of this encounter Visit Diagnoses Diagnosis Muscle spasticity Spasm of muscle Acquired dysplasia of hip, bilateral Other acquired deformities of hip 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
--- OUTSIDE RECORDS SUMMARY | 2023-11-23 16:43 | XMS_ITS | Encounter Summary ---
Author Organization [facility] [place] [place] [address] Care Team Providers Care Economic Historian Name Role Phone Naina Lindsey MD Primary Care Provider [phone] Encounter Details Date Type Department Care Team (Latest Contact Info) Description 01/12/2012 11:15 AM EDT Procedure [place] [phone] Bigg Dunbar MD [facility] [place] [address] Abnormal involuntary movements (Primary Dx) Discharge Disposition: [...] Pump Reprogramming or Adjustment Tana S Dirk [id number] Date of Programming/Adjustment: January 12, 2012 Primary Negotiations Director: Dr. Lara Small Arms Artillery Repairer: Dr. Dunbar Reason for Reprogramming or Adjustment: Refill Rate Adjustment: No Diagnosis: Spasticity Concomitant Medical Problems: Telemetry Pre-programming Reading: Drug: Baclofen Concentration: 1000 mcg/ml Dose Delivery per day: 195.1 mcg/day Infusion Mode: simple continuous Telemetry Post-programming Reading: Drug: Baclofen Concentration: 1000 mcg/ml Dose Delivery per day: 195.1 mcg/day Infusion Mode: simple continuous Pump Capacity: [] 20 ml [xxx] 40 ml Expected [employer] Volume this visit: 4 ml Actual [employer] Volume this visit: 5 ml Medication or [...] instilled into the pump according to the reaming machine operator's directions without difficulty. There was no evidence [...] Farhana Lara MD Fellow, Pain Medicine Pager [phone] documented in this encounter Miscellaneous Notes * Miscellaneous - Delbert, Chair Spring Assembler - 01/15/2012 4:53 PM EDT documented in this encounter Plan of Treatment Upcoming Encounters Date Type Department Care Team (Late st Contact Info) Description 11/25/2023 2:00 PM EDT TH Visit (TeleHealth) Infectious Disease at [place] [phone] Lilli Joy APRN [facility] [place] [address] 12/03/2023 12:30 PM EDT Office Visit Infectious Disease at [place] [phone] Hollie Ambriz MD [facility] [place] [address] 12/03/2023 2:30 PM EDT Hospital Encounter Radiology at [place] [phone] Andarde Melvin MD [facility] [place] [address] documented as of this encounter Procedures Procedure Name Priority Date/Time Associated Diagnosis Comments INTRATHECAL PUMP REFILL Routine 01/12/2012 12:44 PM EDT Abnormal involuntary movements documented in this encounter Results * INTRATHECAL PUMP REFILL (01/12/2012 12:44 PM EDT) Narrative Farhana Lara - 01/12/2012 12:44 PM EDT Pain Medicine Intrathecal Pump Reprogramming or Adjustment Tana Cavazos [id number] Date of Programming/Adjustment: January 12, 2012 Primary Negotiations Director: ??Dr. Lara ?? Small Arms Artillery Repairer: ??Dr. Dunbar Reason for Reprogramming or Adjustment: [...] [] 20 ml [xxx] 40 ml Expected [employer] Volume this visit: 4 ml Actual [employer] Volume this visit: 5 ml Medication or [...] drapes were applied as provided with the [employer] refill kit. A 22 gauge Persaud non-coring [...] instilled into the pump according to the reaming machine operator's directions without difficulty. There was no evidence [...] Farhana Lara MD Fellow, Pain Medicine Pager [phone] Procedure Note Farhana Lara - 01/12/2012 12:43 PM EDT Pain Medicine Intrathecal Pump Reprogramming or Adjustment Tana Cavazos [id number] Date of Programming/Adjustment: January 12, 2012 Primary Negotiations Director: Dr. Lara Small Arms Artillery Repairer: Dr. Dunbar Reason for Reprogramming or Adjustment: Refill Rate Adjustment: No Diagnosis: Spasticity Concomitant Medical Problems: Telemetry Pre-programming Reading: Drug: Baclofen Concentration: 1000 mcg/ml Dose Delivery per day: 195.1 mcg/day Infusion Mode: simple continuous Telemetry Post-programming Reading: Drug: Baclofen Concentration: 1000 mcg/ml Dose Delivery per day: 195.1 mcg/day Infusion Mode: simple continuous Pump Capacity: [] 20 ml [xxx] 40 ml Expected [employer] Volume this visit: 4 ml Actual [employer] Volume this visit: 5 ml Medication or [...] Sterile drapes were applied as provided withthe [employer] refill kit. A 22 gauge Persaud non-coring [...] Farhana Lara MD Fellow, Pain Medicine Pager [phone] Bigg Dunbar MD PROCEDURE/MINOR S URGICAL ORDERABLES [...] and Dose: Baclofen 1000 mcg/ml solution Lot [id number] Given 01/12/2012 12:38 PM EDT 1 each documented in this encounter Care Teams Economic Historian Relationship Specialty Start Date End Date Naina Lindsey MD [address] [place] [address] PCP - General 03/19/10 08/25/16 documented as of this encounter
--- OUTSIDE RECORDS SUMMARY | 2023-11-23 16:43 | XMS_ITS | Encounter Summary ---
Author Organization [facility] [place] [address] Care Team Providers Care Health And Safety Representative Name Role Phone Naina Lindsey MD Primary Care Provider [phone] Encounter Details Date Type Department Care Team (Late st Contact Info) Description 07/08/2012 Orders [place] [phone] Bigg Dunbar MD [facility] [place] [address] Spasticity (Primary Dx) Social History Tobacco Use [...] EDT TH Visit (TeleHealth) [place] [phone] Lilli Joy APRN [facility] [place] [address] 12/03/2023 12:30 PM EDT Office Visit Infectious Disease at [place] [phone] Hollie Ambriz MD [facility] [place] [address] 12/03/2023 2:30 PM EDT Hospital Encounter Radiology at [place] [phone] Andrade Melvin MD [facility] [place] [address] documented as of this encounter Visit Diagnoses Diagnosis Spasticity- Primary Abnormal involuntary movements documented in this encounter Care Teams Health And Safety Representative Relationship Specialty Start Date End Date Naina [place] [address] PCP - General 03/19/10 08/25/16 documented as of this encounter
--- OUTSIDE RECORDS SUMMARY | 2023-11-23 16:43 | XMS_ITS | Encounter Summary ---
Author Organization [facility] [place] [address] Care Team Providers Care Upper Leather Cutter Name Role Phone Naina Lindsey MD Primary Care Provider [phone] Encounter Details Date Type Department Care Team (Late st Contact Info) Description 01/05/2012 Orders [place] [phone] Christiano Floyd MD [facility] [place] [address] Spasticity (Primary Dx) Social History Tobacco Use [...] EDT TH Visit (TeleHealth) [place] [phone] Lilli Joy APRN [facility] [place] [address] 12/03/2023 12:30 PM EDT Office [place] [address] Hollie Ambriz MD [facility] [place] [address] 12/03/2023 2:30 PM EDT Hospital [place] [phone] Andrade Melvin MD [facility] [place] [address] documented as of this encounter Visit Diagnoses Diagnosis Spasticity- Primary Abnormal involuntary movements documented in this encounter Care Teams Upper Leather Cutter Relationship Specialty Start Date End Date Naina Lindsey MD [address] [place] [address] [place] [address] PCP - General 03/19/10 08/25/16 documented as of this encounter
--- OUTSIDE RECORDS SUMMARY | 2023-11-23 16:43 | XMS_ITS | Encounter Summary ---
Author Organization [facility] [place] [address] Care Team Providers Care Film Editor Name Role Phone Naina Lindsey MD Primary Care Provider [phone] Encounter Details Date Type Department Care Team (Late st Contact Info) Description 08/19/2010 Orders Only [place] [phone] Lucho Fields MD [facility] [place] [address] Social History Tobacco Use Types Packs/Day Years [...] EDT TH Visit (TeleHealth) [place] [phone] Lilli Joy APRN [facility] [place] [address] 12/03/2023 12:30 PM EDT Office [place] [address] Hollie Ambriz MD [facility] [place] [address] 12/03/2023 2:30 PM EDT Hospital [place] [phone] Andrade Melvin MD [facility] [place] [address] documented as of this encounter Visit Diagnoses Not on filedocumented in this encounter Care Teams Film Editor Relationship Specialty Start Date End Date Naina Lindsey MD [address] [place] [address] [place] [address] PCP - General 03/19/10 08/25/16 documented as of this encounter
--- OUTSIDE RECORDS SUMMARY | 2023-11-23 16:43 | XMS_ITS | Encounter Summary ---
Author Organization [facility] Address [facility] [place] [address] Care Team Providers Care Biomass Power Plant Manager Name Role Phone Naina Lindsey MD Primary Care Provider [phone] Reason for Referral * Physical Therapy (Routine) - Complete - Patient Will Schedule External Appt Specialty Diagnoses / Procedures Referred By Karlo t Referred To Contact Physical Therapy Diagnoses Developmental delay Yas Ramirez MD [facility] [place] [address] Referral ID Status Reason Start Date Expiration Date Visits Requested Visits Authorized [id number] Complete - Patient Will Schedule External Appt Evaluate and Treat 09/24/2010 03/23/2011 1 1 Reason for Visit * Reason Comments Follow Up Surgery spica cast Encounter Details Date Type Department Care Team (Late st Contact Info) Description 09/24/2010 2:20 PM EDT Follow-[place] [phone] Yas Ramirez MD [facility] [place] [address] Developmental delay (Primary Dx); Traumatic brain injury [...] EDT TH Visit (TeleHealth) [place] [address] Lilli Joy APRN [facility] INF[place] [address] 12/03/2023 12:30 PM EDT Office Visit Infectious Disease at [place] [phone] Hollie Ambriz MD [facility] [place] [address] 12/03/2023 2:30 PM EDT Hospital Encounter Radiology at [address] Andrade Melvin MD [facility] INTERVENTIONAL [place] [address] Scheduled Referrals Name Type Priority Associated Diagnoses [...] hip documented in this encounter Care Teams Biomass Power Plant Manager Relationship Specialty Start Date End Date Naina Lindsey MD [address] [place] [address] PCP - General 03/19/10 08/25/16 documented as of this encounter
--- OUTSIDE RECORDS SUMMARY | 2023-11-23 16:43 | XMS_ITS | Encounter Summary ---
[place] [address] Care Team Providers Care Dice Table Operator Name Role Phone Naina Lindsey MD Primary Care Provider [phone] Reason for Visit * Reason Onset Date Comments Other 03/14/2011 Encounter Details Date Type Department Care Team (Late st Contact Info) Description 03/14/2011 Telephone [place] [address]1000 Mony Fierro RN Other Social History Tobacco [...] this also with Bart Denis PT from [place] [facility] who has been unable to find a creative way to avoid this with her seating. Discussed with Dr. Ramirez who will evaluate at her appointment on 03/31. documented in this encounter Plan of Treatment Upcoming Encounters Date Type Department Care Team (Late st Contact Info) Description 11/25/2023 2:00 PM EDT TH Visit (TeleHealth) Infectious Disease at [address] Lilli Joy APRN [facility] [place] [address] 12/03/2023 12:30 PM EDT Office Visit [place] [address] Hollie Ambriz MD [facility] [place] [address] 12/03/2023 2:30 PM EDT Hospital En[place] [address] Andrade Melvin MD [facility] [place] [address] documented as of this encounter Visit Diagnoses Not on filedocumented in this encounter Care Teams Dice Table Operator Relationship Specialty Start Date End Date Naina Lindsey MD [place] [address] PCP - General 03/19/10 08/25/16 documented as of this encounter
--- OUTSIDE RECORDS SUMMARY | 2023-11-23 16:43 | XMS_ITS | Encounter Summary ---
Author Organization [facility] [place] [address] Care Team Providers Care Websphere Administrator Name Role Phone Naina Lindsey MD Primary Care Provider [phone] Reason for Referral * Consultation (Routine) - Complete - Patient Will Schedule External Appt Specialty Diagnoses / Procedures Referred By Contac t Referred To Contact Orthotics Diagnoses Cerebral palsy Yas Ramirez MD [facility] [place] [address] Referral ID Status Reason Start Date Expiration Date Visits Requested Visits Authorized [id number] Complete - Patient Will Schedule External Appt Assume Subset of Care 09/30/2010 03/29/2011 1 1 * Consultation (Routine) - Complete - Patient Will Schedule External Appt Specialty Diagnoses / Procedures Referred By Contac t Referred To Contact Orthotics Diagnoses Cerebral palsy Yas Ramirez MD [facility] [place] [address] Referral ID Status Reason Start Date Expiration Date Visits Requested Visits Authorized [id number] Complete - Patient Will Schedule External Appt Assume Subset of Care 09/30/2010 03/29/2011 1 1 Reason for Visit * Reason Comments Developmental Delay serial casting Encounter Details Date Type Department Care Team (Late st Contact Info) Description 09/30/2010 9:00 AM EDT Follow-Up Orthopaedics at [facility] [place] [address] Yas Ramirez MD [facility] [place] [address] Cerebral palsy (Primary Dx) Discharge Disposition: Home [...] encounter Miscellaneous Notes * Miscellaneous - Delbert Forestry Foreman - 10/31/2010 9:10 AM EDT documented in this encounter Plan of Treatment Upcoming Encounters Date Type Department Care Team (Late st Contact Info) Description 11/25/2023 2:00 PM EDT TH Visit (TeleHealth) Infectious Disease at [place] [address] Lilli Joy APRN [facility] [place] [address] 12/03/2023 12:30 PM EDT Office Visit Infectious Disease at [place] [address] Hollie Ambriz MD [facility] [place] [address] 12/03/2023 2:30 PM EDT Hospital Encounter Radiology at [place] [address] Andrade Melvin MD [facility] [place] [address] Scheduled Referrals Name Type Priority Associated Diagnoses Orde r Schedule REFERRAL FOR ORTHOTICS Outpatient Referral Routine Cerebral palsy Ordered: 09/30/2010 REFERRAL FOR ORTHOTICS Outpatient Referral Routine Cerebral palsy Ordered: 09/30/2010 documented as of this encounter Visit Diagnoses Diagnosis Cerebral palsy- Primary Infantile cerebral palsy, unspecified documented in this encounter Care Teams Websphere Administrator Relationship Specialty Start Date End Date Naina Lindsey MD [address] [place] [address] PCP - General 03/19/10 08/25/16 documented as of this encounter
--- OUTSIDE RECORDS SUMMARY | 2023-11-23 16:43 | XMS_ITS | Encounter Summary ---
Author Organization [facility] [place] [address] Care Team Providers Care Insurance Sales Professional Name Role Phone Naina Lindsey MD Primary Care Provider [phone] Reason for Referral * Occupational Therapy (Routine) - Complete - Patient Will Schedule External Appt Specialty Diagnoses / Procedures Referred By Contac t Referred To Contact Occupational Therapy Diagnoses Acquired dysplasia of hip Scoliosis Traumatic brain injury Yas Ramirez MD [facility] [place] [address] Referral ID Status Reason Start Date Expiration Date Visits Requested Visits Authorized [id number] Complete - Patient Will Schedule External Appt Evaluate and Treat 01/02/2011 07/01/2011 1 1 * Physical Therapy (Routine) - Complete - Patient Will Schedule External Appt Specialty Diagnoses / Procedures Referred By Contac t Referred To Contact Physical Therapy Diagnoses Acquired dysplasia of hip Scoliosis Traumatic brain injury Yas Ramirez MD [facility] [place] [address] Referral ID Status Reason Start Date Expiration Date Visits Requested Visits Authorized [id number] Complete - Patient Will Schedule External Appt Evaluate and Treat 01/02/2011 07/01/2011 1 1 Encounter Details Date Type Department Care Team (Late st Contact Info) Description 01/02/2011 Orders Only Orthopaedics at [place] [address] Yas Ramirez MD [facility] [place] [address] Acquired dysplasia of hip, bilateral; Scoliosis; Traumatic [...] Visit (TeleHealth) Infectious Disease at [place] [address] Lilli Joy APRN [facility] [place] [address] 12/03/2023 12:30 PM EDT Office Visit Infectious Disease at [place] [address] Hollie Ambriz MD [facility] [place] [address] 12/03/2023 2:30 PM EDT Hospital Encounter Radiology at [place] [address] Andrade Melvin MD [facility] [place] [address] Scheduled Referrals Name Type Priority Associated Diagnoses [...] consciousness documented in this encounter Care Teams Insurance Sales Professional Relationship Specialty Start Date End Date Naina Lindsey MD [address] [place] [address] PCP - General 03/19/10 08/25/16 documented as of this encounter
--- OUTSIDE RECORDS SUMMARY | 2023-11-23 16:43 | XMS_ITS | Encounter Summary ---
[place] [address] Care Team Providers Care Sharepoint Consultant Name Role Phone Naina Lindsey MD Primary Care Provider [phone] Encounter Details Date Type Department Care Team (Late st Contact Info) Description 12/17/2010 Telephone [place] [address] Mony Fierro, RN Social History [...] EDT TH Visit (TeleHealth[place] [address] Lilli Joy APRN [facility] [place] [address] 12/03/2023 12:30 PM EDT Office Visit Infectious Disease at [place] [phone] Hollie Ambriz MD [facility] [address] 12/03/2023 2:30 PM EDT Hospital [place] [address] Andrade Melvin MD [facility] [place] [address] documented as of this encounter Visit Diagnoses Not on filedocumented in this encounter Care Teams Sharepoint Consultant Relationship Specialty Start Date End Date Naina [place] [address] PCP - General 03/19/10 08/25/16 documented as of this encounter
--- OUTSIDE RECORDS SUMMARY | 2023-11-23 16:43 | XMS_ITS | Encounter Summary ---
Author Organization [facility] [address] Care Team Providers Care J2Ee Programmer Name Role Phone Naina Lindsey MD Primary Care Provider [phone] Encounter Details Date Type Department Care Team (Late st Contact Info) Description 11/18/2010 Abstract [place] [address] Jessica López, RN Social History [...] EDT TH Visit (TeleHealth) [place] [address] Lilli Joy, [facility] [place] [address] 12/03/2023 12:30 PM EDT Office [place] [address] Hollie Ambriz MD [facility] [place] [address] 12/03/2023 2:30 PM EDT Hospital Encounter Radiology at [facility] [place] [address] Andrade Melvin MD [facility] [place] [address] documented as of this encounter Visit Diagnoses Not on filedocumented in this encounter Care Teams J2Ee Programmer Relationship Specialty Start Date End Date Naina Lindsey MD [address] [place] [address] PCP - General 03/19/10 08/25/16 documented as of this encounter
--- OUTSIDE RECORDS SUMMARY | 2023-11-23 16:43 | XMS_ITS | Encounter Summary ---
Author Organization [facility] [place] [address] Care Team Providers Care Inspector Aligning Name Role Phone Naina Lindsey MD Primary Care Provider [phone] Encounter Details Date Type Department Care Team (Late st Contact Info) Description 07/08/2012 Orders [place] [address] Aniket Heredia MD [facility] [place] [address] Spasticity (Primary Dx) Social History [...] EDT TH Visit (TeleHealth) [place] [address]1000 Lilli Joy APRN [facility] INFECTIOUS [place] [address] 12/03/2023 12:30 PM EDT Office Visit Infectious Disease at [place] [phone] Hollie Ambriz MD [facility] DR INFECTI[place] [address] 12/03/2023 2:30 PM EDT Hospital Encounter Radiology at [place] [phone] Andrade Melvin MD [facility] INTERVENTIONAL [place] [address] documented as of this encounter Visit Diagnoses Diagnosis Spasticity- Primary Abnormal involuntary movements documented in this encounter Care Teams Inspector Aligning Relationship Specialty Start Date End Date Naina Lindsey MD [address] [place] [address] [place] [address] PCP - General 03/19/10 08/25/16 documented as of this encounter
--- OUTSIDE RECORDS SUMMARY | 2023-11-23 16:43 | XMS_ITS | Encounter Summary ---
Author Organization [facility] Address [facility] [place] [address] Care Team Providers Care Grocery Team Member Name Role Phone Naina Lindsey MD Primary Care Provider [phone] Encounter Details Date Type Department Care Team (Latest Contact Info) Description 09/24/2010 1:20 PM EDT - 09/24/2010 11:59 PM EDT Hospital Encounter XRay at [address] [place] [address] Muscle spasticity Social History Tobacco Use Types [...] EDT TH Visit (TeleHealth) Infectious Disease at [place] [phone] Lilli Joy APRN [facility] [place] [address] 12/03/2023 12:30 PM EDT Office Visit [place] [address] Hollie Ambriz MD [facility] [place] [address] 12/03/2023 2:30 PM EDT Hospital Encounter Radiology at [place] [phone] Andrade Melvin MD [facility] [place] [address] documented as of this encounter Procedures Procedure [...] muscle documented in this encounter Care Teams Grocery Team Member Relationship Specialty Start Date End Date Naina Lindsey MD [address] [place] [address] PCP - General 03/19/10 08/25/16 documented as of this encounter
--- OUTSIDE RECORDS SUMMARY | 2023-11-23 16:43 | XMS_ITS | Encounter Summary ---
Author Organization [facility] [place] [address] Care Team Providers Care Steward/Stewardess Third Name Role Phone Naina Lindsey MD Primary Care Provider [phone] Reason for Referral * Consultation (Routine) - Closed Specialty Diagnoses / Procedures Referred By Contac t Referred To Contact Pain Management Diagnoses Scoliosis Jamar Dodd III, MD [facility] [place] [address] [facility] [address] [place] [address] Referral ID Status Reason Start Date Expiration Date V isits Requested Visits Authorized [id number] Closed Consult Only 12/16/2011 06/13/2012 1 1 * Consultation (Routine) - Complete - Unable to Contact Patient Specialty Diagnoses / Procedures Referred By Contac t Referred To Contact Pediatrics Diagnoses Scoliosis pre operative evaluation and to establish contact for future [place] [facility] [place] Jamar Whiting III, MD [facility] [place] [address] [facility] [address] [place] [phone] Referral ID Status Reason Start Date Expiration Date Visits Requested Visits Authorized [id number] Complete - Unable to Contact Patient Consult Only 12/16/2011 06/13/2012 1 1 * Surgical (Routine) - Closed by system - Referral Specialty Diagnoses / Procedures Referred By Contac t Referred To Contact Anesthesiology Diagnoses Scoliosis Aquiles Smith MD [facility] [place] [address] [place] [address] Referral ID Status Reason Start Date Expiration Date Visits Requested Visits Authorized [id number] Closed by system - Referral Consult, Test & Treat 12/16/2011 06/13/2012 1 1 Reason for Visit * Reason Comments Follow Up Surgery Bilat. Hip DOS 2010 Encounter Details Date Type Department Care Team (Late st Contact Info) Description 12/16/2011 1:30 PM EDT Office Visit Orthopaedics at [place] [phone] Aquiles Smith MD [facility] [place] [address] Scoliosis (Primary Dx) Discharge Disposition: Home Social [...] on scoliosis status post fusion with Dr. Ramierz. INTERVAL HISTORY: Tana returns with her mom [...] Visit (TeleHealth) Infectious Disease at [place] [phone] Lilli Joy APRN [facility] [address] 12/03/2023 12:30 PM EDT Office Visit Infectious Disease at [place] [phone] Hollie Ambriz MD [facility] [place] [address] 12/03/2023 2:30 PM EDT Hospital Encounter Radiology at [place] [phone] Andrade Melvin MD [facility] [place] [address] Scheduled Referrals Name Type Priority Associated Diagnoses Order Schedule REFERRAL TO GENERAL ANESTHESIOLOGY Outpatient Referral Routine Scoliosis Ordered: 12/16/2011 REFERRAL TO PEDIATRICS Outpatient Referral Routine Scoliosis Ordered: 12/16/2011 REFERRAL TO PAIN CLINIC Outpatient Referral Routine Scoliosis Ordered: 12/16/2011 documented as of this encounter Visit Diagnoses Diagnosis Scoliosis- Primary Scoliosis (and kyphoscoliosis), idiopathic documented in this encounter Care Teams Steward/Stewardess Third Relationship Specialty Start Date End Date Naina Lindsey MD [address] [address] PCP - General 03/19/10 08/25/16 documented as of this encounter
--- OUTSIDE RECORDS SUMMARY | 2023-11-23 16:43 | XMS_ITS | Encounter Summary ---
Author Organization [facility] [place] [address] Care Team Providers Care Program Director [employer] Name Role Phone Naina Lindsey MD Primary Care Provider [phone] Reason for Visit * Reason Onset Date Comments Other 11/11/2010 WANTED NOTES [facility]AMSI M SURG Encounter Details Date Type Department Care Team (Late st Contact Info) Description 11/11/2010 Telephone [place] [phone] Yas Ramirez MD [facility] [place] [address] Other (WANTED NOTES FROM SURG) Social History [...] TH Visit (TeleHealth) Infectious Disease at [address] [facility] [place] [address] 12/03/2023 12:30 PM EDT Office Visit Infectious Disease at [place] [phone] [facility] [place] [address] 12/03/2023 2:30 PM EDT Hospital Encounter Radiology at [place] [phone] [facility] [place] [address] documented as of this encounter Visit Diagnoses Not on filedocumented in this encounter Care Teams Program Director Cable Television Relationship Specialty Start Date End Date Naina Lindsey MD [address] [place] [address] [place] [address] PCP - General 03/19/10 08/25/16 documented as of this encounter
--- OUTSIDE RECORDS SUMMARY | 2023-11-23 16:43 | XMS_ITS | Encounter Summary ---
Author Organization [facility] [place] [address] Care Team Providers Care Sagger Maker Name Role Phone Naina Lindsey MD Primary Care Provider [phone] Encounter Details Date Type Department Care Team (Late st Contact Info) Description 11/07/2010 Orders [place] [phone] Bigg Dunbar MD [facility] [place] [address] Spasticity (Primary Dx) Social History Tobacco Use [...] EDT TH Visit (TeleHealth) [place] [phone] Lilli Joy APRN [facility] [place] [address] 12/03/2023 12:30 PM EDT Office [place] [phone] Hollie Ambriz MD [facility] [place] [address] 12/03/2023 2:30 PM EDT Hospital [place] [phone] Andrade Melvin MD [facility] [place] [address] documented as of this encounter Visit Diagnoses Diagnosis Spasticity- Primary Abnormal involuntary movements documented in this encounter Care Teams Sagger Maker Relationship Specialty Start Date End Date Naina Lindsey MD [address] [place] [address] PCP - General 03/19/10 08/25/16 documented as of this encounter
--- OUTSIDE RECORDS SUMMARY | 2023-11-23 16:43 | XMS_ITS | Encounter Summary ---
Author Organization [facility] [place] [address] Care Team Providers Care Make Up Editor Name Role Phone Naina Lindsey MD Primary Care Provider [phone] Reason for Referral * Consultation (Routine) - Complete - Patient Will Schedule External Appt Specialty Diagnoses / Procedures Referred By Contac t Referred To Contact Orthotics Diagnoses Edema leg Scoliosis Acquired dysplasia of hip Traumatic brain injury Yas Ramirez MD [facility] [place] [address] Referral ID Status Reason Start Date Expiration Date Visits Requested Visits Authorized [id number] Complete - Patient Will Schedule External Appt Consult, Test & Treat 1 10/13/2011 1 1 Encounter Details Date Type Department Care Team (Late st Contact Info) Description 04/16/2011 Orders [place] [address] Yas Ramirez MD [facility] [place] [address] Edema leg; Scoliosis; Acquired dysplasia of hip, [...] EDT TH Visit (TeleHealth) Infectious Disease at [address] Lilli Joy APRN [facility] [address] INFECTI[place] [address] 12/03/2023 12:30 PM EDT Office Visit Infectious Disease at [place] [address] Hollie Ambriz MD [facility] DR INFECTIOUS [place] [address] 12/03/2023 2:30 PM EDT Hospital Encounter Radiology at [place] [address] Andrade Melvin MD [facility] DR INTERVENTIONAL [place] [address] Scheduled Referrals Name Type Priority Associated Diagnoses [...] consciousness documented in this encounter Care Teams Make Up Editor Relationship Specialty Start Date End Date Naina Lindsey [place] [address] PCP - General 03/19/10 08/25/16 documented as of this encounter
--- OUTSIDE RECORDS SUMMARY | 2023-11-23 16:43 | XMS_ITS | Encounter Summary ---
Author Organization [facility] Address [facility] [place] [address] Care Team Providers Care Knockout Man Name Role Phone Naina Lindsey MD Primary Care Provider [phone] Encounter Details Date Type Department Care Team (Latest Contact Info) Description 12/16/2011 12:15 PM EDT - 12/16/2011 11:59 PM EDT Hospital Encounter XRay at [address] [place] [address] CLINIC, Joesph Sheikh Jr., MD [facility] [place] [address] Aquiles Smith MD [facility] [place] [address] Scoliosis Discharge Disposition: Home Social History Tobacco [...] EDT TH Visit (TeleHealth) Infectious Disease at [place] [phone] Lilli Joy APRN [facility] [place] [address] 12/03/2023 12:30 PM EDT Office Visit Infectious Disease at [place] [phone] Hollie Ambriz MD [facility] [place] [address] 12/03/2023 2:30 PM EDT Hospital Encounter Radiology at [place] [phone] Andrade Melvin MD [facility] [address] [place] [address] documented as of this encounter Procedures Procedure [...] idiopathic documented in this encounter Care Teams Knockout Man Relationship Specialty Start Date End Date Naina Lindsey MD [address] [place] [address] PCP - General 03/19/10 08/25/16 documented as of this encounter
--- OUTSIDE RECORDS SUMMARY | 2023-11-23 16:43 | XMS_ITS | Encounter Summary ---
Author Organization [facility] [place] [address] Care Team Providers Care Parking Regulation Enforcement Officer Name Role Phone Naina Lindsey MD Primary Care Provider [phone] Reason for Visit * Reason Comments Cerebral Palsy Encounter Details Date Type Department Care Team (Latest Contact Info) Description 07/11/2011 8:30 AM EDT Procedure [place] [phone] Yudelka Coyne MD [facility] [place] [address] Spasticity (Primary Dx); Abnormal involuntary movements Discharge [...] provided the care. Christiana Woods DO N [facility] PAIN MANAGEMENT [place] [address] Dept: [phone] * Yudelka Coyne MD - 07/11/2011 10:56 AM EDT INTRATHECAL PUMP REFILL PROCEDURE NOTE WITH REPROGRAMMING Primary Correctional Supervisor: Dr. Steffany Coyne Electrical And Radio Mock Up Mechanic: Lucia Mazariegos LPN Reason for Reprogramming: refill [...] different? no Empty syringe concentration verified by schedule checker: no If concentration of drug is [...] drapes were applied as provided with the [employer] refill kit. A 22 gauge Persaud non-coring [...] instilled into the pump according to the general car yard supervisor's directions without difficulty. There was no [...] encounter Miscellaneous Notes * Miscellaneous - Delbert Match Marker - 07/15/2011 4:12 PM EDT documented in this encounter Plan of Treatment Upcoming Encounters Date Type Department Care Team (Late st Contact Info) Description 11/25/2023 2:00 PM EDT TH Visit (TeleHealth) [place] [phone] Lilli Joy APRN [facility] [place] [address] 12/03/2023 12:30 PM EDT Office [place] [phone] Hollie Ambriz MD [facility] [place] [address] 12/03/2023 2:30 PM EDT Hospital Encounter Radiology at [place] [phone] Andrade Melvin MD [facility] [place] [address] Scheduled Orders Name Type Priority Associated Diagnoses [...] each documented in this encounter Care Teams Parking Regulation Enforcement Officer Relationship Specialty Start Date End Date Naina Lindsey MD [address] [place] [address] PCP - General 03/19/10 08/25/16 documented as of this encounter
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
--- OUTSIDE RECORDS SUMMARY | 2023-11-23 16:43 | XMS_ITS | Encounter Summary ---
Author Organization [facility] Address [facility] [place] [address] Care Team Providers Care Electric Knife Operator Name Role Phone Naina Lindsey MD Primary Care Provider [phone] Encounter Details Date Type Department Care Team (Late st Contact Info) Description 02/03/2011 Orders [place] [address] Yas Ramirez MD [facility] [place] [address] Acquired dysplasia of hip, bilateral; Scoliosis; Traumatic [...] EDT TH Visit (TeleHealth) [place] [address] Lilli Joy APRN [facility] [place] [address] 12/03/2023 12:30 PM EDT Office [place] [address] Hollie Ambriz MD [facility] [place] [address] 12/03/2023 2:30 PM EDT Hospital [place] [address] Andrade Melvin MD [facility] INTERVENTIONAL [place] [address] documented as of this encounter Visit Diagnoses Diagnosis Acquired dysplasia of hip, bilateral Other acquired deformities of hip Scoliosis Scoliosis (and kyphoscoliosis), idiopathic 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
--- OUTSIDE RECORDS SUMMARY | 2023-11-23 16:43 | XMS_ITS | Encounter Summary ---
Author Organization [facility] [place] [address] Care Team Providers Care Transmission Supervisor Name Role Phone Naina Lindsey MD Primary Care Provider [phone] Encounter Details Date Type Department Care Team (Late st Contact Info) Description 11/04/2010 4:00 PM EDT Office Visit [place] [address] Gloria López, RVT Acquired dysplasia [...] EDT TH Visit (TeleHealth) [place] [address] Lilli Joy, [place] [facility] [place] [address] 12/03/2023 12:30 PM EDT Office [place] [address] Hollie Ambriz MD [facility] [place] [address] 12/03/2023 2:30 PM EDT Hospital Encounter Radiology at [facility] [place] [address] Andrade Melvin MD [facility] [place] [address] documented as of this encounter Procedures Procedure Name Priority Date/Time Associated Diagnosis Comments DUPLEX FOR DVT, LEG, UNILAT Routine 11/04/2010 3:55 PM EDT Acquired dysplasia of hip, bilateral Edema leg documented in this encounter Results * Duplex for DVT, Leg, Unilat (11/04/2010 3:55 PM EDT) VB Text Report Department: Vascular Surgery Lab Patient: [id number] (TANA SHELTON) CPT Code: 93223 ICD-9: 729.81 Referring Physician: YAS OLIVER Indication: [...] Edema documented in this encounter Care Teams Transmission Supervisor Relationship Specialty Start Date End Date Naina Lindsey MD [address] [place] [address] PCP - General 03/19/10 08/25/16 documented as of this encounter
--- OUTSIDE RECORDS SUMMARY | 2023-11-23 16:43 | XMS_ITS | Encounter Summary ---
Author Organization [facility] [place] [address] Care Team Providers Care Ct Technician Name Role Phone Naina Lindsey MD Primary Care Provider [phone] Reason for Visit * Reason Comments Spasms Encounter Details Date Type Department Care Team (Late st Contact Info) Description 11/20/2010 12:45 PM EDT Follow-[place] [id number] Christiano Floyd MD [facility] [place] [address] Spastic quadriplegia (Primary Dx) Discharge Disposition: Home [...] 11/20/2010 1:2 7 PM EDT Growth Chart: [facility] (Girls, 2- 20 Years) documented in this encounter Progress Notes * Gaby Silva - 11/20/2010 3:00 PM EDT Pain Management Center Refill of Intrathecal Pump with Reprogramming Procedure Note Tana Robles Cavazos [id number] Date of Refill: 11/20/10 Primary Mat Inspector: Dr. Silva K9 Handler: Dr. Floyd Reason for Reprogramming: Refill Diagnosis: [...] instilled into the pump according to the manager music's directions without difficulty. There was no evidence [...] EDT TH Visit (TeleHealth) [place] [address] Lilli Joy APRN [facility] [place] [address] 12/03/2023 12:30 PM EDT Office Visit Infectious Disease at [place] [phone] Hollie Ambriz MD [facility] [place] [address] 12/03/2023 2:30 PM EDT Hospital Encounter Radiology at [place] [phone] Andrade Melvin MD [facility] [place] [address] documented as of this encounter Visit Diagnoses Diagnosis Spastic quadriplegia- Primary Quadriplegia, unspecified documented in this encounter Care Teams Ct Technician Relationship Specialty Start Date End Date Naina Lindsey MD [address] [place] [address] PCP - General 03/19/10 08/25/16 documented as of this encounter
--- OUTSIDE RECORDS SUMMARY | 2023-11-23 16:43 | XMS_ITS | Encounter Summary ---
Author Organization [facility] [place] [address] Care Team Providers Care Engineering Mgr Name Role Phone Naina Lindsey MD Primary Care Provider [phone] Encounter Details Date Type Department Care Team (Late st Contact Info) Description 06/30/2011 Orders [place] [address]1000 Boyd Dillon MD [facility] [place] [address] Spasticity (Primary Dx) Social History Tobacco Use [...] EDT TH Visit (TeleHealth) [place] [address]-1000 Lilli Joy APRN [facility] [place] [address] 12/03/2023 12:30 PM EDT Office Visit Infectious Disease at [place] [phone] Hollie Ambriz MD [facility] [place] [address] 12/03/2023 2:30 PM EDT Hospital Encounter [place] [phone] Andrade Melvin MD [facility] [place] [address] documented as of this encounter Visit Diagnoses Diagnosis Spasticity- Primary Abnormal involuntary movements documented in this encounter Care Teams Engineering Mgr Relationship Specialty Start Date End Date Naina Lindsey MD [address] [place] [address] [place] [address] PCP - General 03/19/10 08/25/16 documented as of this encounter
--- OUTSIDE RECORDS SUMMARY | 2023-11-23 16:43 | XMS_ITS | Encounter Summary ---
Author Organization [facility] [place] [address] Care Team Providers Care Field Hauler Name Role Phone Naina Lindsey MD Primary Care Provider [phone] Reason for Visit * Reason Comments Cerebral Palsy Encounter Details Date Type Department Care Team (Late st Contact Info) Description 09/05/2010 1:00 PM EDT Office [place] [phone] CLINIC, DR VALADEZ Muscle spasticity (Primary Dx) [...] EDT TH Visit (TeleHealth) [place] [address] Lilli Joy APRN [facility] [place] [address] 12/03/2023 12:30 PM EDT Office [place] [address] Hollie Ambriz MD [facility] [place] [address] 12/03/2023 2:30 PM EDT Hospital Encounter Radiology at [place] [phone] Andrade Melvin MD [facility] INTERVENTIONAL [place] [address] documented as of this encounter Visit Diagnoses Diagnosis Muscle spasticity- Primary Spasm of muscle documented in this encounter Care Teams Field Hauler Relationship Specialty Start Date End Date Naina Lindsey MD [address] [place] [address] PCP - General 03/19/10 08/25/16 documented as of this encounter
--- OUTSIDE RECORDS SUMMARY | 2023-11-23 16:43 | XMS_ITS | Encounter Summary ---
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 Encounter Details Date Type Department Care Team (Late st Contact Info) Description 12/27/2011 Telephone [place] [phone] Aquiles Smith MD [facility] [place] [address] Blindness Social History Tobacco Use Types Packs/Day [...] EDT TH Visit (TeleHealth) [place] [address] Lilli Joy APRN [facility] [place] [address] 12/03/2023 12:30 PM EDT Office [place] [address]-1000 Hollie Ambriz MD [facility] [place] [address] 12/03/2023 2:30 PM EDT Hospital [place] [address] Andrade Melvin MD [facility] DR [place]ION[place] [address] documented as of this encounter Visit Diagnoses Not on filedocumented in this encounter Care Teams Store Sales Consultant Relationship Specialty Start Date End Date Naina Lindsey MD [address] [place] [address] [place] [address] PCP - General 03/19/10 08/25/16 documented as of this encounter
--- OUTSIDE RECORDS SUMMARY | 2023-11-23 16:43 | XMS_ITS | Encounter Summary ---
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 Zaldivar Radiation Therapy Technician: Dr. Dillon Reason for Reprogramming: Refill/weaning [...] instilled into the pump according to the satellite manager's directions without difficulty. There was no [...] medication. Nitin Zaldivar MD Fellow, Pain Medicine 3409 documented in this encounter Miscellaneous Notes * Miscellaneous - Delbert, Administration Professional - 05/01/2011 2:01 PM EST documented in this encounter Plan of Treatment Upcoming Encounters Date Type Department Care Team (Late st Contact Info) Description 11/25/2023 2:00 PM EDT TH Visit (TeleHealth) Infectious Disease at [place] [phone] Lilli Joy APRN [facility] [place] [address] 12/03/2023 12:30 PM EDT Office Visit Infectious Disease at [place] [phone] Hollie Ambriz MD [facility] [place] [address] 12/03/2023 2:30 PM EDT Hospital Encounter Radiology [place] [facility] [address] Andrade Melvin MD [facility] [place] [address] documented as of this encounter Visit Diagnoses [...] each documented in this encounter Care Teams Fire Prevention Engineer Relationship Specialty Start Date End Date Naina Lindsey MD [address] [place] [address] PCP - General 03/19/10 08/25/16 documented as of this encounter
--- OUTSIDE RECORDS SUMMARY | 2023-11-23 16:43 | XMS_ITS | Encounter Summary ---
Author Organization [facility] [place] [address] Care Team Providers Care Lining Layer Name Role Phone Naina Lindsey MD Primary Care Provider [phone] Encounter Details Date Type Department Care Team (Late st Contact Info) Description 04/15/2011 Orders [place] [address]-1000 Margaux Godfrey MD [facility] [address] PAIN CLINIC [place], [place] [phone] Spasticity (Primary Dx) Social History Tobacco Use [...] EDT TH Visit (TeleHealth) [place] [address]-1000 Lilli Joy APRN [facility] [place] [address] 12/03/2023 12:30 PM EDT Office [place] [address]-1000 Hollie Ambriz MD [facility] [place] [address] 12/03/2023 2:30 PM EDT Hospital [place] [address]-1000 Andrade Melvin MD [facility] [address] [place] [address] documented as of this encounter Visit Diagnoses Diagnosis Spasticity- Primary Abnormal involuntary movements documented in this encounter Care Teams Lining Layer Relationship Specialty Start Date End Date Naina [place] [address] PCP - General 03/19/10 08/25/16 documented as of this encounter
--- OUTSIDE RECORDS SUMMARY | 2023-11-23 16:43 | XMS_ITS | Encounter Summary ---
Author Organization [facility] [place] [address] Care Team Providers Care Baby Formula Worker Name Role Phone Naina Lindsey MD Primary Care Provider [phone] Reason for Visit * Reason Comments Bilateral Leg Pain CP Encounter Details Date Type Department Care Team (Late st Contact Info) Description 05/19/2011 10:40 AM EST [place] [address]1000 Yas Ramirez MD [facility] [place] [address] TBI (traumatic brain injury) (Primary Dx); Scoliosis; [...] EDT TH Visit (TeleHealth) [place] [address]-1000 Lilil Joy APRN [facility] [place] [address] 12/03/2023 12:30 PM EDT Office [place] [address] Hollie Ambriz MD [facility] [place] [address] 12/03/2023 2:30 PM EDT Hospital Encounter Radiology at [place] [phone] Andrade Melvin MD [facility] [place] [address] documented as of this encounter Results * [...] idiopathic documented in this encounter Care Teams Baby Formula Worker Relationship Specialty Start Date End Date Naina Lindsey MD [address] [place] [address] PCP - General 03/19/10 08/25/16 documented as of this encounter
--- OUTSIDE RECORDS SUMMARY | 2023-11-23 16:44 | XMS_ITS | Encounter Summary ---
Author Organization [facility] Address [address] [place] [address] Care Team Providers Care Equipment Processer Storage Name Role Phone César Robert MD, Naina Primary Care Provider [phone] Reason for Visit * Reason Onset Date Comments Appointment Related 11/04/2018 Encounter Details Date Type Department Care Team (Late st Contact Info) Description 11/04/2018 Telephone [facility] Rehabilitation Therapy - [address] [address] Therapist, Physical, PT Appointment Related Social History [...] on filedocumented in this encounter Care Teams Equipment Processer Storage Relationship Specialty Start Date End Date Naina Lindsey MD [address] [place] [address] [place], [place] [address] PCP - General 02/13/15 documented as of this encounter
--- OUTSIDE RECORDS SUMMARY | 2023-11-23 16:44 | XMS_ITS | Encounter Summary ---
Author Organization [facility] Address [address] [place] [address] Care Team Providers Care Polisher And Sander Name Role Phone César Robert MD, Naina Primary Care Provider [phone] Encounter Details Date Type Department Care Team (Latest Contact Info) Description 11/30/2018 12:49 EDT - 11/30/2018 23:59 EDT Hospital Encounter [address] [address] Lorna Bal, EMAIL OPERATIONS MANAGER [address] [facility] [address] [place] [address] Discharge Disposition: Auto Discharge Social History Tobacco [...] on filedocumented in this encounter Care Teams Polisher And Sander Relationship Specialty Start Date End Date Naina Lindsey MD [address] [place] [address] PCP - General 02/13/15 documented as of this encounter
--- OUTSIDE RECORDS SUMMARY | 2023-11-23 16:44 | XMS_ITS | Encounter Summary ---
Author Organization [facility] Address [address] [place] [address] Care Team Providers Care Furniture Upholsterer Name Role Phone César Robert MD, Naina Primary Care Provider [phone] Reason for Visit * Reason Onset Date Comments Appointment Related 03/01/2015 Encounter Details Date Type Department Care Team (Late st Contact Info) Description 03/01/2015 Telephone [facility] Rehabilitation Therapy - [address] [phone] Therapy, Outpatient, Appointment Related Social History Tobacco [...] by Candelaria Jaquez PT and Phyllis Whitman CCC-POWER BUILDER DEVELOPER : Phyllis indicates she may need to do a Speech Language Evaluation for this patient. I have called and relayed this information to the patient's mother : Patient is part of the [facility] - being seen by their Speech Language Pathologists : Zina Thomas and Osman Rodriguez. Per Phyllis's: POWER BUILDER DEVELOPER notes need to be obtained so that she can determine the length/scope of the patient's SLE appointment so that it may be properly scheduled. I will contact the [facility] to request these records. documented in this encounter Plan of Treatment Not on file documented as of this encounter Visit Diagnoses Not on filedocumented in this encounter Care Teams Furniture Upholsterer Relationship Specialty Start Date End Date Naina Lindsey MD [address] [place] [address] PCP - General 02/13/15 documented as of this encounter
--- OUTSIDE RECORDS SUMMARY | 2023-11-23 16:44 | XMS_ITS | Encounter Summary ---
Author Organization [facility] Address [address] [place] [address] Care Team Providers Care Snag Grinder Name Role Phone César Robert MD, Naina Primary Care Provider [phone] Reason for Visit * Reason Onset Date Comments Appointment Related 04/06/2019 Encounter Details Date Type Department Care Team (Late st Contact Info) Description 04/06/2019 Telephone [facility] Rehabilitation Therapy - [address] [phone] Therapy, Physical Appointment Related Social History Tobacco [...] of May 04 from - here at [facility]. This is a re-schedule from today as the vendor was ill. Gretchen Dietz MA 04/06/2019 11:26 documented in this encounter Plan of Treatment Not on file documented as of this encounter Visit Diagnoses Not on filedocumented in this encounter Care Teams Snag Grinder Relationship Specialty Start Date End Date Naina Lindsey MD [address] [place], [place] [address] PCP - General 02/13/15 documented as of this encounter
--- OUTSIDE RECORDS SUMMARY | 2023-11-23 16:44 | XMS_ITS | Encounter Summary ---
Author Organization [facility] Address [address] [place] [address] Care Team Providers Care Video System Repairer Name Role Phone César Robert MD, Naina Primary Care Provider [phone] Reason for Visit * Reason Onset Date Comments Appointment Related 05/25/2015 Encounter Details Date Type Department Care Team (Late st Contact Info) Description 05/25/2015 Telephone [facility] Rehabilitation Therapy - [address] [address]64[address] Therapy, Outpatient, Appointment Related Social History Tobacco [...] on filedocumented in this encounter Care Teams Video System Repairer Relationship Specialty Start Date End Date Naina Lindsey MD [address] [place] [address] PCP - General 02/13/15 documented as of this encounter
--- OUTSIDE RECORDS SUMMARY | 2023-11-23 16:44 | XMS_ITS | Encounter Summary ---
Author Organization [facility] Address [address] [place] [address] Care Team Providers Care Sock Knitting Machine Operator Name Role Phone César Robert MD, Naina Primary Care Provider [phone] Reason for Visit * Reason Onset Date Comments Appointment Related 11/26/2018 Encounter Details Date Type Department Care Team (Late st Contact Info) Description 11/26/2018 Telephone [facility] Rehabilitation Therapy - [address] [phone] Therapist, Physical, PT Appointment Related Social History [...] on filedocumented in this encounter Care Teams Sock Knitting Machine Operator Relationship Specialty Start Date End Date Naina Lindsey MD [address] [place] [address] [place] [address] PCP - General 02/13/15 documented as of this encounter
--- OUTSIDE RECORDS SUMMARY | 2023-11-23 16:44 | XMS_ITS | Encounter Summary ---
Author Organization [facility] Address [address] [place] [address] Care Team Providers Care Lead Data Entry Operator Name Role Phone César Robert MD, Naina Primary Care Provider [phone] Encounter Details Date Type Department Care Team [...] Outpatient Rehab Plan of Care REHABILITATION THERAPIES [facility] REHABILITATION THERAPY - [address] [address] Physical Therapy Progress Note Date of Service: [...] verbalized understanding Team Communication: MYA Pleitez from [facility] and two of Tana's caregivers were present and participated in this entire visit. A: The custom mold was created for Tana's new custom seating system. 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 Silver Miner Goals: 8 weeks Will have a wheeled [...] Cc: Referring Provider: LIZETH Sandoval ATP from [facility] Rehabilitation Therapies [facility] Fax: [phone] WHEELCHAIR PRESCRIPTION 05/06/2019 Tana Cavazos 1995 [address] [place] [id number] (home) [phone] (work) Insurance Policy Number 1. [place] Medicaid ACO [id number] Medical/Surgical History: Current: There is no problem [...] elbow (90 degrees)-n/a Component Wheelchair Description Justification Business Support Manager, style and model USE EXISTING WHEELCHAIR Chair [...] on the mold. ?? Incontinent cover ?? [place] headrest mounting plate ?? [place] headrest mount ?? To accommodate .Tana's fixed [...] Referring Provider: Lorna Bal NP Funding at [facility] Plan ATTENDING PHYSICIAN: Your [...] filedocumented in this encounter Care Teams Lead Data Entry Operator Relationship Specialty Start Date End Date Naina Lindsey MD [address] [place] [address] PCP - General 02/13/15 documented as of this encounter
--- OUTSIDE RECORDS SUMMARY | 2023-11-23 16:44 | XMS_ITS | Encounter Summary ---
Author Organization [facility] Address [address] [place] [address] Care Team Providers Care Financial Project Manager Name Role Phone César Robert MD, Naina Primary Care Provider [phone] Encounter Details Date Type Department Care Team (Latest Contact Info) Description 12/04/2015 19:02 EDT - 12/04/2015 23:59 EDT Hospital Encounter [facility] [address] [place] [address] Leonid Candelaria, PT [address] [place] [address] Andrade Lux MD [address] [facility] [address] [phone] Naina Lindsey MD [address] [place], [place] [address] Discharge Disposition: Auto Discharge Social History Tobacco [...] filedocumented in this encounter Care Teams Financial Project Manager Relationship Specialty Start Date End Date Naina Lindsey MD [address] [place] [address] PCP - General 02/13/15 documented as of this encounter
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
--- OUTSIDE RECORDS SUMMARY | 2023-11-23 16:44 | XMS_ITS | Encounter Summary ---
Author Organization [facility] Address [facility] [place] [address] Care Team Providers Care Hi Teacher Name Role Phone Naina Lindsey MD Primary Care Provider [phone] Encounter Details Date Type Department Care Team (Late st Contact Info) Description 08/13/2010 [place] [address] Yas Ramirez MD [facility] [place] [address] Social History Tobacco Use Types Packs/Day Years [...] EDT TH Visit (TeleHealth) [place] [address] Lilli Joy APRN [facility] [place] [address] 12/03/2023 12:30 PM EDT Office Visit Infectious Disease at [address] Hollie Ambriz MD [facility] [place] [address] 12/03/2023 2:30 PM EDT Hospital Encounter Radiology at [place] [phone] Andrade Melvin MD [facility] [place] [address] documented as of this encounter Visit Diagnoses Not on filedocumented in this encounter Care Teams Hi Teacher Relationship Specialty Start Date End Date Naina Lindsey MD [address] [place] [address] PCP - General 03/19/10 08/25/16 documented as of this encounter
--- OUTSIDE RECORDS SUMMARY | 2023-11-23 16:44 | XMS_ITS | Encounter Summary ---
Author Organization [facility] [place] [address] Care Team Providers Care Retail Client Manager Name Role Phone Naina Lindsey MD Primary Care Provider [phone] Encounter Details Date Type Department Care Team (Late st Contact Info) Description 08/13/2010 Orders [place] [phone] Yas Ramirez MD [facility] [place] [address] DDH (developmental dysplasia of the hip) (Primary [...] EDT TH Visit (TeleHealth) [place] [phone] Lilli Joy APRN [facility] [place] [address] 12/03/2023 12:30 PM EDT Office [place] [phone] Hollie Ambriz MD [facility] [place] [address] 12/03/2023 2:30 PM EDT Hospital [place] [address] Andrade Melvin MD [facility] [place] [address] documented as of this encounter Visit Diagnoses Diagnosis DDH (developmental dysplasia of the hip)- Primary Other congenital deformity of hip (joint) documented in this encounter Care Teams Retail Client Manager Relationship Specialty Start Date End Date Naina Lindsey MD [address] [place] [address] PCP - General 03/19/10 08/25/16 documented as of this encounter
--- OUTSIDE RECORDS SUMMARY | 2023-11-23 16:44 | XMS_ITS | Encounter Summary ---
Author Organization [facility] Address [address] [place] [address] Care Team Providers Care Hot Roller Name Role Phone César Robert MD, Naina Primary Care Provider [phone] Reason for Visit * Reason Onset Date Comments Appointment Related 10/31/2019 Encounter Details Date Type Department Care Team (Late st Contact Info) Description 10/31/2019 Telephone [facility] Rehabilitation Therapy - [address] [phone] Therapy, Physical Appointment Related Social History Tobacco [...] occur in two business days time at [facility] Gretchen Dietz MA 10/31/2019 14:41 documented in this encounter Plan of Treatment Not on file documented as of this encounter Visit Diagnoses Not on filedocumented in this encounter Care Teams Hot Roller Relationship Specialty Start Date End Date Naina Lindsey MD [address] [place] [address] PCP - General 02/13/15 documented as of this encounter
--- OUTSIDE RECORDS SUMMARY | 2023-11-23 16:44 | XMS_ITS | Encounter Summary ---
Author Organization [facility] [place] [address] Care Team Providers Care Mortar Mixer Name Role Phone Naina Lindsey MD Primary Care Provider [phone] Encounter Details Date Type Department Care Team (Late st Contact Info) Description 07/11/2010 9:00 AM EDT Follow-[place] [phone] Andrade Gordon MD [facility] [place] [address] Discharge Disposition: Home Social History Tobacco Use [...] EDT TH Visit (TeleHealth) [place] [phone] Lilli Joy APRN [facility] [place] [address] 12/03/2023 12:30 PM EDT Office [place] [phone] Hollie Ambriz MD [facility] [place] [address] 12/03/2023 2:30 PM EDT Hospital [place] [address] Andrade Melvin MD [facility] [place] [address] documented as of this encounter Visit Diagnoses Not on filedocumented in this encounter Care Teams Mortar Mixer Relationship Specialty Start Date End Date Naina Lindsey MD [address] [place] [address] [place] [address] PCP - General 03/19/10 08/25/16 documented as of this encounter
--- OUTSIDE RECORDS SUMMARY | 2023-11-23 16:44 | XMS_ITS | Encounter Summary ---
Author Organization [facility] Address [address] [place] [address] Care Team Providers Care Lock Assembler Name Role Phone César Robert MD, Naina Primary Care Provider [phone] Reason for Visit * Reason Onset Date Comments Other 01/04/2016 Encounter Details Date Type Department Care Team (Late st Contact Info) Description 01/04/2016 Telephone [facility] Rehabilitation Therapy - [address] [id number] Therapy, Outpatient, Other Social History Tobacco Use [...] I have spoken to Oliver Lozano at [facility], but he could not see in their paperwork a clear delivery timeframe. I have sent an e-mail to Ramin Samuel and Amna Giraldo at [facility] asking that someone call Javed and give her an estimate of when the chair will be delivered. documented in this encounter Plan of Treatment Not on file documented as of this encounter Visit Diagnoses Not on filedocumented in this encounter Care Teams Lock Assembler Relationship Specialty Start Date End Date Naina Lindsye MD [address] [place] [address] PCP - General 02/13/15 documented as of this encounter
--- OUTSIDE RECORDS SUMMARY | 2023-11-23 16:44 | XMS_ITS | Encounter Summary ---
Author Organization [facility] Address [address] [place] [address] Care Team Providers Care Office Cleaner Name Role Phone César Robert MD, Naina Primary Care Provider [phone] Reason for Visit * Reason Onset Date Comments Appointment Related 07/20/2015 Encounter Details Date Type Department Care Team (Late st Contact Info) Description 07/20/2015 Telephone [facility] Rehabilitation Therapy - [address] [phone] Therapy, Outpatient, Appointment Related Social History Tobacco [...] on filedocumented in this encounter Care Teams Office Cleaner Relationship Specialty Start Date End Date Naina Lindsey MD [address] [place] [address] PCP - General 02/13/15 documented as of this encounter
--- OUTSIDE RECORDS SUMMARY | 2023-11-23 16:44 | XMS_ITS | Encounter Summary ---
Author Organization [facility] Address [address] [place] [address] Care Team Providers Care Engineering Scientist Name Role Phone César Robert MD, Naina Primary Care Provider [phone] Encounter Details Date Type Department Care Team (Latest Contact Info) Description 08/24/2018 17:22 EDT - 08/24/2018 23:59 EDT Hospital Encounter [address] [address] Unknown, Provider, Discharge Disposition: Home or Self [...] Code Departure Means Destination Home or Self Jail documented in this encounter Plan of Treatment Not on file documented as of this encounter Visit Diagnoses Not on filedocumented in this encounter Care Teams Engineering Scientist Relationship Specialty Start Date End Date Naina Lindsey MD [address] [place] [address] [place] [address] PCP - General 02/13/15 documented as of this encounter
--- OUTSIDE RECORDS SUMMARY | 2023-11-23 16:44 | XMS_ITS | Encounter Summary ---
Author Organization [facility] Address [address] [place] [address] Care Team Providers Care Die Repair Name Role Phone César Robert MD, Naina Primary Care Provider [phone] Encounter Details Date Type Department Care Team (Latest Contact Info) Description 05/29/2015 17:07 EST - 05/29/2015 23:59 EST Hospital Encounter [address] [address] Naina Lindsey MD [address] [place], [place] [address] Discharge Disposition: Home or Self Care Social [...] Code Departure Means Destination Home or Self Longterm documented in this encounter Plan of Treatment Not on file documented as of this encounter Visit Diagnoses Not on filedocumented in this encounter Care Teams Die Repair Relationship Specialty Start Date End Date Naina Lindsey MD [address] [facility] [address] PCP - General 02/13/15 documented as of this encounter
--- OUTSIDE RECORDS SUMMARY | 2023-11-23 16:44 | XMS_ITS | Encounter Summary ---
Author Organization [facility] Address [address] [place] [address] Care Team Providers Care Gym Instructor Name Role Phone César Robert MD, Naina Primary Care Provider [phone] Encounter Details Date Type Department Care Team (Late st Contact Info) Description 07/01/2023 Lab Requisition [facility] Pathology & Laboratory Medicine - [address] [address] Outr Resulting Lab, Provider Social History Tobacco [...] IgA <4.0 <20.0 CU 07/02/2023 10:22 EST [facility] Comment: Negative: <20.0 CU Weak Positive: 20.0-30.0 CU Positive: >30.0 CU Results were obtained with the Black House[employer] Flash h-tTG IgA chemiluminescent immunoassay. Values obtained with different manufacturers' assay methods may not be used interchangeably. Blood VENOUS BLOOD / Unknown 07/01/2023 10:52 EST 07/01/2023 21:12 EST Provider Outr Resulting Lab IMMUNOLOGY A ND SEROLOGY ORDERABLES Performing Organization Address City/State/[facility] Co de Phone Number [facility] [address] [place], [place] [phone] documented in this encounter Visit Diagnoses Not on filedocumented in this encounter Care Teams Gym Instructor Relationship Specialty Start Date End Date Naina Lindsey MD [address] [place] [address] PCP - General 02/13/15 documented as of this encounter
--- OUTSIDE RECORDS SUMMARY | 2023-11-23 16:44 | XMS_ITS | Encounter Summary ---
Author Organization [facility] Address [address] [place] [address] Care Team Providers Care Loop Cutter Name Role Phone César Robert MD, Naina Primary Care Provider Encounter Details Date Type Department Care Team (Latest Contact Info) Description 04/03/2015 9:31 EST - 04/03/2015 23:59 EST Hospital Encounter [address] [address] Naina Lindsey MD [address] [place], [place] [id number] Discharge Disposition: Home or Self Care Social [...] Code Departure Means Destination Home or Self Detention documented in this encounter Plan of Treatment Not on file documented as of this encounter Visit Diagnoses Not on filedocumented in this encounter Care Teams Loop Cutter Relationship Specialty Start Date End Date Naina Lindsey MD [address] [facility] [place] [address] PCP - General 02/13/15 documented as of this encounter
--- OUTSIDE RECORDS SUMMARY | 2023-11-23 16:44 | XMS_ITS | Referral Summary ---
Author Organization [facility] Address [address] [place] [address] Care Team Providers Care Extension Service Specialist Name Role Phone César Robert MD, Naina Primary Care Provider + [phone] Medications Medication Sig Dispensed Refills Start Date [...] appointments, call [facility] dual living providers [facility]: [phone]. No additional problems on file Social History [...] of Treatment Not on file Care Teams Extension Service Specialist Relationship Specialty Start Date End Date Naina Lindsey MD [address] [place] [address] PCP - General 02/13/15
--- OUTSIDE RECORDS SUMMARY | 2023-11-23 16:44 | XMS_ITS | Encounter Summary ---
Author Organization [facility] Address [address] [place] [address] Care Team Providers Care Student Counselor Name Role Phone César Robert MD, Naina Primary Care Provider [phone] Reason for Visit * Reason Onset Date Comments Appointment Related 03/01/2015 Encounter Details Date Type Department Care Team (Late st Contact Info) Description 03/01/2015 Telephone [facility] Rehabilitation Therapy - [address] [address] Therapy, Outpatient, Appointment Related Social History Tobacco [...] chair. 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 Spoke with patient's student aid from [employer], Mesha Espinal. She indicates that the bracket that holds the Smart Talk device hits every door frame that they go through, and would like this remedied. Mesha states that there are no unmet NICK SETTER needs at this time. I indicated to Mesha that Candelaria Jaquez PT should be able to address this need at the [facility] appointment on 04/07/15. documented in this encounter Plan of Treatment Not on file documented as of this encounter Visit Diagnoses Not on filedocumented in this encounter Care Teams Student Counselor Relationship Specialty Start Date End Date Naina Lindsey MD [address] [place] [address] PCP - General 02/13/15 documented as of this encounter
--- OUTSIDE RECORDS SUMMARY | 2023-11-23 16:44 | XMS_ITS | Encounter Summary ---
Author Organization [facility] Address [address] [place] [address] Care Team Providers Care Executive Candidate Developer Name Role Phone César Robert MD, Naina Primary Care Provider [phone] Encounter Details Date Type Department Care Team (Late st Contact Info) Description 04/24/2023 Lab Requisition [facility] Pathology & Laboratory Medicine - [address] [phone] Outr Resulting Lab, Provider Social History Tobacco [...] Surface Ag Negative Negative 04/24/2023 22:33 EST [facility] Hep C Antibody Negative Negative 04/24/2023 22:33 EST [facility] Hepatitis A Antibody, IgM Negative Negative 04/24/2023 22:33 EST [facility] Comment:The results of this assay can be falsely lowered due to the consumption of Biotin. Hepatitis B Core Ab, Total Negative Negative 04/24/2023 22:33 EST [facility] Blood VENOUS BLOOD / Unknown 04/24/2023 10:00 EST 04/24/2023 21:06 EST Provider Outr Resulting Lab CHEMISTRY & BLOOD GAS ORDERABLES [facility] [address] [place] [address] documented in this encounter Visit Diagnoses Not on filedocumented in this encounter Care Teams Executive Candidate Developer Relationship Specialty Start Date End Date Naina Lindsey MD [address] [place] [address] PCP - General 02/13/15 documented as of this encounter
--- OUTSIDE RECORDS SUMMARY | 2023-11-23 16:44 | XMS_ITS | Encounter Summary ---
Author Organization [facility] Address [address] [place] [address] Care Team Providers Care Scrubbing Machine Operator Name Role Phone César Robert MD, Naina Primary Care Provider [phone] Reason for Visit * Reason Onset Date Comments Appointment Related 04/13/2019 Encounter Details Date Type Department Care Team (Late st Contact Info) Description 04/13/2019 Telephone [facility] Rehabilitation Therapy - [address] [phone] Therapy, Physical Appointment Related Social History Tobacco [...] erickson Cristobal upcoming wheelchair appointment here at [facility] on 05/06 from 2-4. She confirmed they were available for the date/time. Gretchen Dietz MA 04/13/2019 15:19 documented in this encounter Plan of Treatment Not on file documented as of this encounter Visit Diagnoses Not on filedocumented in this encounter Care Teams Scrubbing Machine Operator Relationship Specialty Start Date End Date Naina Lindsey MD [address] [place] [address] [place], [place] [phone] PCP - General 02/13/15 documented as of this encounter
--- OUTSIDE RECORDS SUMMARY | 2023-11-23 16:44 | XMS_ITS | Encounter Summary ---
Author Organization [facility] Address [address] [place] [address] Care Team Providers Care Subacute Nurse Name Role Phone César Robert MD, Naina Primary Care Provider [phone] Encounter Details Date Type Department Care Team (Late st Contact Info) Description 07/01/2023 Lab Requisition [facility] Pathology & Laboratory Medicine - [address] [address] Outr Resulting Lab, Provider Social History Tobacco [...] 85 - 499 mg/dL 07/02/2023 11:39 EST [facility] Blood VENOUS BLOOD / Unknown 07/01/2023 10:52 EST 07/01/2023 21:19 EST Provider Outr Resulting Lab CHEMISTRY & BLOOD GAS ORDERABLES Performing Organization Address City/[facility] Co de Phone Number [facility] [address] [place] [address] * (ABNORMAL) IGG (07/01/2023 10:52 EST) IgG 1,631(H) 610 - 1,616 mg/dL 07/02/2023 11:39 EST [facility] Blood VENOUS BLOOD / Unknown 07/01/2023 10:52 EST 07/01/2023 21:19 EST Provider Outr Resulting Lab CHEMISTRY & BLOOD GAS ORDERABLES Performing Organization Address City/[facility] Co de Phone Number [facility] [address] [place], [place] [address] documented in this encounter Visit Diagnoses Not on filedocumented in this encounter Care Teams Subacute Nurse Relationship Specialty Start Date End Date Naina Lindsey MD [address] [place] [address] PCP - General 02/13/15 documented as of this encounter
--- OUTSIDE RECORDS SUMMARY | 2023-11-23 16:44 | XMS_ITS | Encounter Summary ---
Author Organization [facility] Address [address] [place] [address] Care Team Providers Care Grinder Set Up Operator Centerless Name Role Phone César Robert MD, Naina Primary Care Provider [phone] Reason for Visit * Reason Onset Date Comments Appointment Related 03/03/2019 Encounter Details Date Type Department Care Team (Late st Contact Info) Description 03/03/2019 Telephone [facility] Rehabilitation Therapy - [address] [address] Therapy, Physical Appointment Related Social History Tobacco [...] on filedocumented in this encounter Care Teams Grinder Set Up Operator Centerless Relationship Specialty Start Date End Date Naina Lindsey MD [address] [place] [address] PCP - General 02/13/15 documented as of this encounter
--- OUTSIDE RECORDS SUMMARY | 2023-11-23 16:44 | XMS_ITS | Encounter Summary ---
Author Organization [facility] Address [address] [place] [address] Care Team Providers Care Pressing Department Supervisor Name Role Phone César Robert MD, Naina Primary Care Provider [phone] Reason for Visit * Reason Onset Date Comments Appointment Related 02/13/2015 Encounter Details Date Type Department Care Team (Late st Contact Info) Description 02/13/2015 Telephone [facility] Rehabilitation Therapy - [address] [address] Therapy, Outpatient, Appointment Related Social History Tobacco Use Types Packs/Day Years Used Date Smoking Tobacco: Never Assessed Sex and Gender Information Value Date Recorded Sex Assigned at Not on file Gender Identity Not on file Sexual Orientation Not on file documented as of this encounter Miscellaneous Notes * Telephone Encounter - Mile Ronquillo - 02/13/2015 1102 EDT [facility] [address] [address] Person providing information? Mother Guardian: Mother Phone number: [phone] 1. Who recommended that you be seen [...] device? Smart Talk Who prescribed/acquired for you? [place] [employer] -through the school 24. Do you have any other requests, comments, questions you would like to add prior to your appt? Smart talk needs to work with chair better 25. To whom should we send an additional questionnaire (if needed)? -- [facility] - [address] [address] Telephone Intake Information for Scheduling NEW Patients [...] 30 total therapy visits (PT, OT, and COGNOS ANALYST combined) between 04-27-14 and 04-26-15. If the patient has exceeded 30 visits already, further therapy will not be covered by their insurance. Date: Tuesday April 07, 2015 Therapist: Candelaria Jaquez, PT @ 1:15 Location: [facility] Name of Supplier: [employer] Name of Rep: Ramin @ 1:45 Reason For Appt: manual Vs. Power Pressure Mapping? no Mile Ronquillo documented in this encounter Plan of Treatment Not on file documented as of this encounter Visit Diagnoses Not on filedocumented in this encounter Care Teams Pressing Department Supervisor Relationship Specialty Start Date End Date Naina Lindsey MD [address] [place] [address] PCP - General 02/13/15 documented as of this encounter
--- OUTSIDE RECORDS SUMMARY | 2023-11-23 16:44 | XMS_ITS | Encounter Summary ---
Author Organization [facility] Address [address] [place] [address] Care Team Providers Care Leather Goods Sales Representative Name Role Phone César Robert MD, Naina Primary Care Provider [phone] Reason for Visit * Reason Onset Date Comments Other 04/03/2015 Encounter Details Date Type Department Care Team (Late st Contact Info) Description 04/03/2015 Telephone [facility] Rehabilitation Therapy - [facility] [address] [place], [place] [phone] Candelaria Jaquez, PT [address] [place] [address] Other Social History Tobacco Use [...] on filedocumented in this encounter Care Teams Leather Goods Sales Representative Relationship Specialty Start Date End Date Naina Lindsey MD [address] [place], [place] [phone] PCP - General 02/13/15 documented as of this encounter
--- OUTSIDE RECORDS SUMMARY | 2023-11-23 16:44 | XMS_ITS | Encounter Summary ---
Author Organization [facility] Address [facility] [place] [address] Care Team Providers Care Accounting Recruiter Name Role Phone Naina Lindsey MD Primary Care Provider [phone] Encounter Details Date Type Department Care Team (Late st Contact Info) Description 06/12/2010 9:00 AM EST Procedure visit [address] [address] Social History Tobacco Use Types Packs/Day Years [...] EDT TH Visit (TeleHealth) [place] [address] Lilli Joy APRN [facility] [place] [address] 12/03/2023 12:30 PM EDT Office [place] [phone] Hollie Ambriz MD [facility] [place] [address] 12/03/2023 2:30 PM EDT Hospital [place] [phone] Andrade Melvin MD [facility] [place] [address] documented as of this encounter Visit Diagnoses Not on filedocumented in this encounter Care Teams Accounting Recruiter Relationship Specialty Start Date End Date Naina Lindsey MD [address] [place] [address] [place] [address] PCP - General 03/19/10 08/25/16 documented as of this encounter
--- OUTSIDE RECORDS SUMMARY | 2023-11-23 16:44 | XMS_ITS | Encounter Summary ---
Author Organization [facility] Address [address] [place] [address] Care Team Providers Care Tip Puncher Name Role Phone César Robert MD, Naina Primary Care Provider [phone] Encounter Details Date Type Department Care Team (Latest Contact Info) Description 07/24/2015 12:40 EDT - 07/24/2015 23:59 EDT Hospital Encounter [address] [address] Naina Lindsey MD [address] [place], [place] [address] Discharge Disposition: Auto Discharge Social History Tobacco [...] on filedocumented in this encounter Care Teams Tip Puncher Relationship Specialty Start Date End Date Naina Lindsey MD [address] [place] [address] PCP - General 02/13/15 documented as of this encounter
--- OUTSIDE RECORDS SUMMARY | 2023-11-23 16:44 | XMS_ITS | Clinical Summary ---
Author Organization [facility] Address [address] [place] [address] Care Team Providers Care Construction Foreman Name Role Phone César Robert MD, Naina Primary Care Provider [phone] Medications Medication Sig Dispensed Refills Start Date [...] appointments, call Tana's dual living providers [facility]: [phone]. No additional problems on file Surgical History [...] COVID-19 Vaccine ( season) 2022 Care Teams Construction Foreman Relationship Specialty Start Date End Date Naina Lindsey MD [address] [place] [address] PCP - General 02/13/15
--- OUTSIDE RECORDS SUMMARY | 2023-11-23 16:44 | XMS_ITS | Encounter Summary ---
Author Organization [facility] Address [address] [place] [address] Care Team Providers Care Machining Technician Name Role Phone César Robert MD, Naina Primary Care Provider [phone] Encounter Details Date Type Department Care Team (Late st Contact Info) Description 04/02/2021 Lab Requisition [facility] Pathology & Laboratory Medicine - [address] [phone] Outr Resulting Lab, Provider Social History Tobacco [...] Outr Resulting Lab MICROBIOLOGY - GENERAL ORDERABLES [facility] [address] [place] [address] * COVID-19 TESTING (04/02/2021 10:55 EST) COVID-19 rt-PCR Result Negative Negative 04/03/2021 14:17 EST [facility] Comment: This test has [...] performed using the eve SARS-CoV-2 assay ([employer] on the Eve 6800 System Performing Lab Eve 68[address] [facility] Lab 04/03/2021 14:17 EST [facility] Swab 04/02/2021 10:5 5 EST 04/02/2021 22:22 EST Provider Outr Resulting Lab MICROBIOLOGY - GENERAL ORDERABLES [facility] [address] [place] [address] documented in this encounter Visit Diagnoses Not on filedocumented in this encounter Care Teams Machining Technician Relationship Specialty Start Date End Date Naina Lindsey MD [address] [place] [address] [place] [address] PCP - General 02/13/15 documented as of this encounter
--- OUTSIDE RECORDS SUMMARY | 2023-11-23 16:44 | XMS_ITS | Encounter Summary ---
Author Organization [facility] Address [address] [place] [address] Care Team Providers Care Medical Record Transcriber Name Role Phone César Robert MD, Naina Primary Care Provider [phone] Reason for Visit * Reason Onset Date Comments Appointment Related 09/27/2019 Encounter Details Date Type Department Care Team (Late st Contact Info) Description 09/27/2019 Telephone [facility] Rehabilitation Therapy - [address] [phone] Therapy, Physical Appointment Related Social History Tobacco [...] in this encounter Care Teams Medical Record Transcriber Relationship Specialty Start Date End Date Naina Lindsey MD [address] [place] [address] PCP - General 02/13/15 documented as of this encounter
--- OUTSIDE RECORDS SUMMARY | 2023-11-23 16:44 | XMS_ITS | Encounter Summary ---
Author Organization [facility] Address [address] [place] [address] Care Team Providers Care Manager Supplier Name Role Phone César Robert MD, Naina Primary Care Provider [phone] Reason for Visit * Reason Onset Date Comments Appointment Related 03/30/2015 Encounter Details Date Type Department Care Team (Late st Contact Info) Description 03/30/2015 Telephone [facility] Rehabilitation Therapy - [address] [address] Therapy, Outpatient, Appointment Related Social History Tobacco [...] on filedocumented in this encounter Care Teams Manager Supplier Relationship Specialty Start Date End Date Naina Lindsey MD [address] [place] [address] [place] [address] PCP - General 02/13/15 documented as of this encounter
--- OUTSIDE RECORDS SUMMARY | 2023-11-23 16:44 | XMS_ITS | Encounter Summary ---
Author Organization [facility] Address [address] [place] [address] Care Team Providers Care Performance Test Architect Name Role Phone César Robert MD, Naina Primary Care Provider [phone] Reason for Visit * Reason Onset Date Comments DME 08/11/2019 Encounter Details Date Type Department Care Team (Late st Contact Info) Description 08/11/2019 Telephone [facility] Rehabilitation Therapy - [facility] [address] [place], [place] [address] Candelaria Jaquez, ELVIRA [address] [place] [address] DME Social History Tobacco Use [...] on filedocumented in this encounter Care Teams Performance Test Architect Relationship Specialty Start Date End Date Naina Lindsey MD [address] [place] [address] PCP - General 02/13/15 documented as of this encounter
--- OUTSIDE RECORDS SUMMARY | 2023-11-23 16:44 | XMS_ITS | Encounter Summary ---
Author Organization [facility] Address [address] [place] [address] Care Team Providers Care Rework Operator Name Role Phone César Robert MD, Naina Primary Care Provider + [phone] Encounter Details Date Type Department Care Team (Late st Contact Info) Description 08/24/2018 Results Only [facility] [phone] Raul Mak MD [address] [place] [address] Social History Tobacco Use Types Packs/Day Years [...] JOHN SHELTONArthur Hayes ? Accession #: ? [id number] ? : ? 1995 (Age: 23) ??F ? Collect Date: ? 08/24/2018 ? Location: ? [facility] ? Receive Date: ? 08/25/2018 ? Provider: RAUL MAK MD Copy to: JERED MARTINEZ BLASTING CONTRACT MINER ? Final Pathologic Diagnosis: UTERUS AND FALLOPIAN [...] and mucin greatest dimension paratubal cyst. ? Manipulator Operator sections are submitted as follows: BLOCK MONTOYA 1-2- ??detached left fallopian tube cross-sections and fimbria 3-4- ??attached right fallopian tube cross-sections with paratubal cyst and fimbria 5- bilateral cervix (anterior marked by blue) 6- ??bilateral lower uterine segments (anterior marked by blue ink) 7-9- ??posterior endomyometrium including probable endometrial polyp 10-11- ??anterior endomyometrium chain sales representative sections Dr. Mora 08/26/2018 3:08 PM End of Report [facility] 08/24/2018 11:4 5 EDT 08/25/2018 11:45 EDT Raul Mak MD PATHOLOGY ORDERABLES [facility] [address] [place] [address] documented in this encounter Visit Diagnoses Not on filedocumented in this encounter Care Teams Rework Operator Relationship Specialty Start Date End Date Naina Lindsey MD [address] [place] [address] PCP - General 02/13/15 documented as of this encounter
--- OUTSIDE RECORDS SUMMARY | 2023-11-23 16:44 | XMS_ITS | Encounter Summary ---
Author Organization [facility] [place] [address] Care Team Providers Care Rod Machine Operator Name Role Phone Naina Lindsey MD Primary Care Provider [phone] Encounter Details Date Type Department Care Team (Late st Contact Info) Description 06/12/2010 9:30 AM EST [place] [address] Yas Ramirez MD [facility] [place] [address] Discharge Disposition: Home Social History Tobacco Use [...] EDT TH Visit (TeleHealth) [place] [address]-1000 Lilli Joy APRN [facility] [place] [address] 12/03/2023 12:30 PM EDT Office [place] [phone] Hollie Ambriz MD [facility] [place] [address] 12/03/2023 2:30 PM EDT Hospital [place] [address] Andrade Melvin MD [facility] [place] [address] documented as of this encounter Visit Diagnoses Not on filedocumented in this encounter Care Teams Rod Machine Operator Relationship Specialty Start Date End Date Naina Lindsey MD [address] [place] [address] PCP - General 03/19/10 08/25/16 documented as of this encounter
--- OUTSIDE RECORDS SUMMARY | 2023-11-23 16:44 | XMS_ITS | Encounter Summary ---
Author Organization [facility] Address [address] [place] [address] Care Team Providers Care Laborer Plumbing Name Role Phone César Robert MD, Naina Primary Care Provider [phone] Reason for Visit * Reason Onset Date Comments Appointment Related 11/30/2015 Encounter Details Date Type Department Care Team (Late st Contact Info) Description 11/30/2015 Telephone [facility] Rehabilitation Therapy - [address] [address] Therapy, Outpatient, Appointment Related Social History Tobacco [...] filedocumented in this encounter Care Teams Laborer Plumbing Relationship Specialty Start Date End Date Naina Lindsey MD [address] [place] [address] PCP - General 02/13/15 documented as of this encounter
--- OUTSIDE RECORDS SUMMARY | 2023-11-23 16:44 | XMS_ITS | Encounter Summary ---
Author Organization [facility] Address [address] [place] [address] Care Team Providers Care Quality Analyst Name Role Phone César Robert MD, Naina Primary Care Provider [phone] Reason for Visit * Reason Onset Date Comments Appointment Related 05/14/2015 Encounter Details Date Type Department Care Team (Late st Contact Info) Description 05/14/2015 Telephone [facility] Rehabilitation Therapy - [address] [phone] Therapy, Outpatient, Appointment Related Social History Tobacco [...] on filedocumented in this encounter Care Teams Quality Analyst Relationship Specialty Start Date End Date Naina [place] [address] PCP - General 02/13/15 documented as of this encounter
--- OUTSIDE RECORDS SUMMARY | 2023-11-23 16:44 | XMS_ITS | Encounter Summary ---
Author Organization [facility] Address [facility] [place] [address] Care Team Providers Care Customer Supply Coordinator Name Role Phone Naina Lindsey MD Primary Care Provider [phone] Encounter Details Date Type Department Care Team (Late st Contact Info) Description 08/15/2010 7:43 AM EDT Anesthesia Event [place] [phone] Erika Curtis MD [facility] [place] [address] Anesthesia Record Procedure Summary Procedure Name Responsible [...] patient, father and mother. Plan discussed with DENTAL MANAGER. documented in this encounter Miscellaneous Notes * [...] Visit (TeleHealth) [place] [phone] Lilli Joy APRN [facility] [place] [address] 12/03/2023 12:30 PM EDT Office [place] [address]-1000 Hollie Ambriz MD [facility] [place] [address] 12/03/2023 2:30 PM EDT Hospital Encounter Radiology at [facility] [place] [phone] Andrade Melvin MD [facility] [place] [address] documented as of this encounter Visit Diagnoses Not on filedocumented in this encounter Care Teams Customer Supply Coordinator Relationship Specialty Start Date End Date Naina Lindsey MD [address] [place] [address] [place] [address] PCP - General 03/19/10 08/25/16 documented as of this encounter
--- OUTSIDE RECORDS SUMMARY | 2023-11-23 16:44 | XMS_ITS | Encounter Summary ---
Author Organization [facility] Address [address] [place] [address] Care Team Providers Care Teleservices Representative Name Role Phone César Robert MD, Naina Primary Care Provider [phone] Reason for Visit * Reason Onset Date Comments Appointment Related 04/04/2019 Encounter Details Date Type Department Care Team (Late st Contact Info) Description 04/04/2019 Telephone [facility] Rehabilitation Therapy - [address] [phone] Therapy, Physical Appointment Related Social History Tobacco [...] on filedocumented in this encounter Care Teams Teleservices Representative Relationship Specialty Start Date End Date Naina Lindsey MD [address] [place], [place] [address] PCP - General 02/13/15 documented as of this encounter
--- OUTSIDE RECORDS SUMMARY | 2023-11-23 16:44 | XMS_ITS | Encounter Summary ---
Author Organization [facility] Address [address] [place] [address] Care Team Providers Care Transformation Consultant Name Role Phone César Robert MD, Naina Primary Care Provider [phone] Reason for Visit * Reason Onset Date Comments Appointment Related 09/29/2019 Encounter Details Date Type Department Care Team (Late st Contact Info) Description 09/29/2019 Telephone [facility] Rehabilitation Therapy - [address] [address] Therapy, Physical Appointment Related Social History Tobacco [...] PT, DPT and Ramin Samuel ATP from [employer]. She confirmed their availability for this date/time. Gretchen Dietz MA 09/29/2019 11:11 documented in this encounter Plan of Treatment Not on file documented as of this encounter Visit Diagnoses Not on filedocumented in this encounter Care Teams Transformation Consultant Relationship Specialty Start Date End Date Naina Lindsey MD [address] [place] [address] PCP - General 02/13/15 documented as of this encounter
--- OUTSIDE RECORDS SUMMARY | 2023-11-23 16:44 | XMS_ITS | Encounter Summary ---
Author Organization [facility] Address [address] [place] [address] Care Team Providers Care Drier And Evaporator Operator Name Role Phone César Robert MD, Naina Primary Care Provider [phone] Reason for Visit * Reason Onset Date Comments Appointment Related 05/04/2019 Encounter Details Date Type Department Care Team (Late st Contact Info) Description 05/04/2019 Telephone [facility] Rehabilitation Therapy - [address] [address] Therapy, Physical Appointment Related Social History Tobacco [...] on filedocumented in this encounter Care Teams Drier And Evaporator Operator Relationship Specialty Start Date End Date Naina Lindsey MD [address] [place] [address] PCP - General 02/13/15 documented as of this encounter
--- OUTSIDE RECORDS SUMMARY | 2023-11-23 16:44 | XMS_ITS | Encounter Summary ---
Author Organization [facility] Address [address] [place] [address] Care Team Providers Care Cyber Reverse Engineer Name Role Phone César Robert MD, Naina Primary Care Provider [phone] Reason for Visit * Reason Onset Date Comments Appointment Related 03/02/2019 Encounter Details Date Type Department Care Team (Late st Contact Info) Description 03/02/2019 Telephone [facility] Rehabilitation Therapy - [address] [address] Therapy, Physical Appointment Related Social History Tobacco Use Types Packs/Day Years Used Date Smoking Tobacco: Never Assessed Sex and Gender Information Value Date Recorded Sex Assigned at Not on file Gender Identity Not on file Sexual Orientation Not on file documented as of this encounter Miscellaneous Notes * Telephone Encounter - Gretchen Dietz MA - 03/02/2019 0985 EST Voicemail message left for this patient asking that she call back into the wheelchair clinic at [phone] to confirm her availability for a custom molding appointment here at [facility] with Candelaria Jaquez, PT, DPT and Ramin Samuel ATP from [employer] for Thu04/06/19, 02-05. GRETCHEN DIETZ MA 03/02/2019 15:46 documented in this encounter Plan of Treatment Not on file documented as of this encounter Visit Diagnoses Not on filedocumented in this encounter Care Teams Cyber Reverse Engineer Relationship Specialty Start Date End Date Naina Lindsey MD [address] [place] [address] PCP - General 02/13/15 documented as of this encounter
--- OUTSIDE RECORDS SUMMARY | 2023-11-23 16:44 | XMS_ITS | Encounter Summary ---
Author Organization [facility] Address [address] [place] [address] Care Team Providers Care Windows Deployment Technician Name Role Phone César Robert MD, Naina Primary Care Provider [phone] Reason for Visit * Reason Onset Date Comments Appointment Related 05/14/2015 Encounter Details Date Type Department Care Team (Late st Contact Info) Description 05/14/2015 Telephone [facility] Rehabilitation Therapy - [facility] [address] [place] [address] Therapy, Outpatient, Appointment Related Social [...] the original note were not included. 0 [facility]; [place] [address] May 14, 2015 Dear Javed; Per our conversation, Tana has been scheduled to be seen by the [facility] Wheelchair Assessment Team for an additional power chair evaluation. Your appointment will last for approximately 3 hours and is scheduled for: Date: Friday July 10, 2015 Time: 12:30 Place: [facility] [address] [place] [id number] The evaluation team will include the following people: [facility] Rehabilitation Physical Therapist: Candelaria Jaquez PT Medical Supplier Smart Energy Specialist: Ramin from [facility] Please call to pre-register with [facility] prior to your appointment at [phone]. During the evaluation, we would like to [...] unable to make your appointment please call [phone]. *48-hour notice is required for cancellation.* We look forward to seeing you. Miel Ronquillo [facility] Rehabilitation Therapy Center [facility] documented in this encounter Plan of Treatment Not on file documented as of this encounter Visit Diagnoses Not on filedocumented in this encounter Care Teams Windows Deployment Technician Relationship Specialty Start Date End Date Naina Lindsey MD [address] [place] [address] PCP - General 02/13/15 documented as of this encounter
--- OUTSIDE RECORDS SUMMARY | 2023-11-23 16:44 | XMS_ITS | Encounter Summary ---
Author Organization [facility] Address [address] [place] [address] Care Team Providers Care Slotter Operator Name Role Phone César Robert MD, Naina Primary Care Provider [phone] Reason for Visit * Reason Onset Date Comments Appointment Related 11/05/2018 Encounter Details Date Type Department Care Team (Late st Contact Info) Description 11/05/[address] [facility] Rehabilitation Therapy - [address] [address] Therapist, Physical, PT Appointment Related Social History Tobacco Use Types Packs/Day Years Used Date Smoking Tobacco: Never Assessed Sex and Gender Information Value Date Recorded Sex Assigned at Not on file Gender Identity Not on file Sexual Orientation Not on file documented as of this encounter Miscellaneous Notes * Telephone Encounter - Gretchen Dietz - 11/05/2018 1344 EDT [facility] [address] [address] Person providing information? Fernanda - Caregiver Guardian: - Phone number: [phone] 1. Who recommended that you be seen [...] additional questionnaire (if needed)? - Gretchen Dietz [facility] RE[facility]ERAP[facility] - [address] [address] Telephone Intake Information for Scheduling NEW Patients [...] on filedocumented in this encounter Care Teams Slotter Operator Relationship Specialty Start Date End Date Naina Lindsey MD [address] [place] [address] PCP - General 02/13/15 documented as of this encounter
--- OUTSIDE RECORDS SUMMARY | 2023-11-23 16:44 | XMS_ITS | Encounter Summary ---
Author Organization [facility] Address [address] [place] [address] Care Team Providers Care Elevator Worker Name Role Phone César Robert MD, Naina Primary Care Provider [phone] Reason for Visit * Reason Onset Date Comments Appointment Related 10/25/2019 Encounter Details Date Type Department Care Team (Late st Contact Info) Description 10/25/2019 Telephone [facility] Rehabilitation Therapy - [address] [address] Therapy, Physical Appointment Related Social History Tobacco [...] wheelchair clinic appointment, to occur tomorrow at [facility]. They confirmed their availability for this date/time. Gretchen Dietz MA 10/25/2019 15:15 documented in this encounter Plan of Treatment Not on file documented as of this encounter Visit Diagnoses Not on filedocumented in this encounter Care Teams Elevator Worker Relationship Specialty Start Date End Date Naina Lindsey MD [address] [place], [place] [address] PCP - General 02/13/15 documented as of this encounter
== END 2023-11-23 16:32 | disposition home or self-care (01) ==
LOC: LBN 16:31
PROVIDERS: PCP Nurse Practitioner Family; Visit Provider Internal Medicine
DX: L02.91 Cutaneous abscess, unspecified (principal)
CPT/HCPCS: 80053; 85025; 86140

== ENCOUNTER 2023-12-04 12:31 | Outpatient (REF) | payer MEDICAID, SELFPAY ==
[2023-12-04 11:55] LABS: Abs Immature Grans 0.01 10^3/uL (0.0-0.06); Absolute Basophil Count 0.02 10^3/uL (0.0-0.2); Absolute Eosinophil Count 0.08 10^3/uL (0.0-0.7); Absolute Lymphocyte Count 1.28 10^3/uL (1.2-3.4); Absolute Monocyte Count 0.27 10^3/uL (0.1-0.8); Absolute Neutrophil Count 3.37 10^3/uL (1.2-6.7); Basophils % 0.4 %; Eosinophils % 1.6 %; HCT 35.8 % (36.0-46.0); HGB 11.3 g/dL (11.2-15.7); Immature Grans % 0.2 %; Lymphocytes % 25.4 %; MCH 27.7 pg (27.0-33.0); MCHC 31.6 % (32.0-36.0); MCV 88 fL (80-95); MPV 10.6 fL (8.0-11.0); Monocytes % 5.4 %; Platelet Count 265 10^3/uL (130-400); RBC 4.08 10^6/uL (3.93-5.22); RDW 16.2 % (11.7-14.6); RDW-SD 52.1 fL; WBC 5.03 10^3/uL (4.4-10.8)
[2023-12-04 12:03] LABS: ALT 68 U/L (14-59); AST 35 U/L (15-37); Albumin 3.1 g/dL (3.4-5.0); Alkaline Phosphatase 198 U/L (46-116); Anion Gap 9.7 mmol/L (3-11); BUN 9 mg/dL (7-18); Bilirubin, Total 0.23 mg/dL (0.2-1.0); CO2 28.3 mmol/L (21.0-32.0); CREATININE 0.4 mg/dL (0.55-1.02); Calcium 9.2 mg/dL (8.5-10.1); Chloride 105 mmol/L (98-107); Estimated GFR 136.46 (mL/min/1.73m2); Glucose 118 mg/dL (74-106); Potassium 3.8 mmol/L (3.5-5.1); Sodium 143 mmol/L (136-145)
--- OUTSIDE RECORDS SUMMARY | 2023-12-04 12:34 | XMS_ITS | Encounter Summary ---
Author Organization [facility] Address [facility] [address] [facility] [place] [address] Care Team Providers Care Physical Therapy Technician Name Role Phone Lorna Bal APRN Primary Care Provider [phone] Encounter Details Date Type Department Care Team (Late st Contact Info) Description 12/02/2023 Orders [place] [address] Hollie Ambriz MD [facility] [place] [address] Spinal abscess; Bacteremia Social History Tobacco Use Types Packs/Day Years Used Date Smoking Tobacco: Never Passive Smoke Exposure: Never Smokeless Tobacco: Never Comments:NO SMOKERS IN THE H OME Alcohol Use Standard Drinks/Week Comments No 0 (1 standard drink = 0.6 oz pur e alcohol) [facility] Utilities Answer Date Recorded In the [...] Care Team (Late st Contact Info) Description 06/02/2024 12:30 PM EST Office [place] [address] Hollie Ambriz MD [facility] [place] [address] Scheduled Orders Name Type Priority Associated Diagnoses Orde r Schedule CBC (with Diff) Lab Routine Spinal abscess Expected: 12/03/2023, Expires: 06/03/2024 Comprehensive metabolic panel Lab Routine Spinal abscess Expected: 12/03/2023 (Approximate), Expires: 03/03/2024 CRP, acute inflammation Lab Routine Spinal abscess Expected: 12/03/2023, Expires: 06/03/2024 documented as of this encounter Visit Diagnoses Diagnosis Spinal abscess Acute osteomyelitis, other specified site Bacteremia documented in this encounter Care Teams Physical Therapy Technician Relationship Specialty Start Date End Date Lorna Bal APRN [address] [place] [address] PCP - General Family Medicine 05/27/18 documented as of this encounter
--- OUTSIDE RECORDS SUMMARY | 2023-12-04 12:34 | XMS_ITS | Encounter Summary ---
Author Organization [facility] Address [facility] [place] [address] Care Team Providers Care Medical Pathologist Name Role Phone Lorna Bal APRN Primary Care Provider [phone] Encounter Details Date Type Department Care Team (Latest Contact Info) Description 12/03/2023 Travel Social History Tobacco Use Types Packs/Day Years Used Date Smoking Tobacco: Never Passive Smoke Exposure: Never Smokeless Tobacco: Never Comments:NO SMOKERS IN THE H OME Alcohol Use Standard Drinks/Week Comments No 0 (1 standard drink = 0.6 oz pur e alcohol) [facility] Utilities Answer Date Recorded In the past 12 months has e [employer], gas, oil, or water [employer] threatened to shut off services in your [...] were you homeless or living in a intermediate (including now)? No 10/29/2023 IPV Inpatient Questions [...] PM EST Office [place] [address] Hollie Ambriz MD [facility] DR [place] [address] documented as of this encounter Visit Diagnoses Not on filedocumented in this encounter Care Teams Medical Pathologist Relationship Specialty Start Date End Date Lorna Bal APRN [address] [place] [address] PCP - General Family Medicine 05/27/18 documented as of this encounter
--- OUTSIDE RECORDS SUMMARY | 2023-12-04 12:34 | XMS_ITS | Encounter Summary ---
Author Organization [facility] Address [facility] [place] [address] Care Team Providers Care Boiler Shop Mechanic Name Role Phone Lorna Bal APRN Primary Care Provider [phone] Encounter Details Date Type Department Care Team (Late st Contact Info) Description 11/09/2023 Telephone [place] [address] Yas Tracy, RN Social History Tobacco Use Types Packs/Day Years Used Date Smoking Tobacco: Never Passive Smoke Exposure: Never Smokeless Tobacco: Never Comments:NO SMOKERS IN THE H OME Alcohol Use Standard Drinks/Week Comments No 0 (1 standard drink = 0.6 oz pur e alcohol) [facility] Utilities Answer Date Recorded In the past 12 months has e electric, gas, oil, or water [employer] threatened to shut off services in your [...] any time in the past 12 m [facility], were you homeless or living in a group home (including now)? No 10/29/2023 IPV Inpatient [...] PM EST Office [place] [address] Hollie Ambriz MD [facility] [place] [address] documented as of this encounter Visit Diagnoses Not on filedocumented in this encounter Care Teams Boiler Shop Mechanic Relationship Specialty Start Date End Date Lorna Bal APRN [address] [place] [address] PCP - General Family Medicine 05/27/18 documented as of this encounter
--- OUTSIDE RECORDS SUMMARY | 2023-12-04 12:34 | XMS_ITS | Encounter Summary ---
Author Organization [facility] [place] [address] Care Team Providers Care Senior Program Manager Name Role Phone Lorna Bal APRN Primary Care Provider [phone] Reason for Referral * Diagnostic Test (Routine) - Authorized Specialty Diagnoses / Procedures Referred By Contac t Referred To Contact Radiology Diagnoses Abscess Procedures IR Drain Check/Change/Remove Mich Martino MD [facility] [place] [address] [place] [address] Referral ID Status Reason Start Date Expiration Date Visits Requested Visits Authorized [id number] Authorized Specialty Service Requested 12/03/2023 06/04/2025 1 1 * Diagnostic Test (Routine) - Closed Specialty Diagnoses / Procedures Referred By Contac t Referred To Contact Radiology Diagnoses Abscess Procedures IR Drain Check/Change/Remove Andrade Melvin MD [facility] [place] [address] [place] [address] Referral ID Status Reason Start Date Expiration Date V isits Requested Visits Authorized [id number] Closed Specialty Service Requested 10/30/2023 05/01/2025 1 1 Reason for Visit * Diagnostic Test (Routine) - Closed Specialty Diagnoses / Procedures Referred By Contac t Referred To Contact Radiology Diagnoses Abscess Procedures IR Drain Check/Change/Remove Andrade Melvin MD [facility] [place] [address] [place] [address] Referral ID Status Reason Start Date Expiration Date V isits Requested Visits Authorized [id number] Closed Specialty Service Requested 10/30/2023 05/01/2025 1 1 Encounter Details Date Type Department Care Team (Latest Contact Info) Description 12/03/2023 1:20 PM EDT - 12/03/2023 11:59 PM EDT Hospital [place] [address] Andrade Melvin MD [facility] [address] [place] [address] Abscess Discharge Disposition: Home Social History Tobacco Use Types Packs/Day Years Used Date Smoking Tobacco: Never Passive Smoke Exposure: Never Smokeless Tobacco: Never Comments:NO SMOKERS IN THE H OME Alcohol Use Standard Drinks/Week Comments No 0 (1 standard drink = 0.6 oz pur e alcohol) [facility] Utilities Answer Date Recorded In the past [...] any time in the past 12 m [facility], were you homeless or living in a longterm (including now)? No 10/29/2023 DH IPV Inpatient [...] Sign Reading Time Taken Comments Blood Pressure 113/69 12/03/2023 3:24 PM EDT Pulse 99 12/03/2023 3:24 PM EDT Temperature 36.5 ??C (97.7 ??F) 12/03/2023 3:24 PM ED T Respiratory Rate 15 12/03/2023 3:24 PM EDT Oxygen Saturation 95% 12/03/2023 3:24 PM EDT Inhaled Oxygen Concentration - - Weight - - Height - - Body Mass Index - - documented in this encounter Discharge Instructions * Discharge Instructions* Elinor Burton RN - 12/03/2023 3:11 PM EDT Images from the original note [...] stopcock. 4. Inject saline per MD order, 5 cc's. Forward flush only, do not aspirate [...] plugging the drain. Flush the drain with 5 cc twice daily with the syringes supplied to you. FORWARD FLUSH ONLY, DO NOTASPIRATE BACK. When to call the Interventional Radiology Department: Please call with any questions or concerns. If it is during regular office hours, please call [phone]. If it is after regular office hours, or on weekends or holidays, please call [phone] and ask to speak to the Professor Of Radiology collections director for Interventional Radiology. Revised 02/10/19 Drainage Record NAME: Date of Surgery: Date: Time: If more than one drain, which one: Drainage Amount (per drain) Total Amount (per drain; in 24 hours) documented in this encounter Medications at Time of Discharge Medication Sig Dispensed Refills Start Date End Date baclofen 15 mg Tablet Take 15 mg by mouth 3 times daily. iron,carbonyl (IRON CHEWS ORAL) Take 1 gummy by mouth daily. Unsure of dosage cholecalciferol, vitamin D3, (VITAMIN D3 ORAL) Take 1 tablet by mouth daily. Unsure of dosage Lactobacillus acidophilus (PROBIOTIC ORAL) Take 1 gummy by mouth daily. MULTIVITAMIN ORAL Take 1 gummy by mouth daily. nystatin (MYCOSTATIN) 100,000 unit/gram Powder Apply topically 4 times daily. cefTRIAXone (Rocephin) 1 gram injection solutionIndications:S diaan abscess Inject 2 g into the vein [...] 10 mg rectally daily as needed (Constipation). polyethylene glycoL (Miralax) 17 gram oral powder packet Take 17 g by mouth daily. 07/09/2022 senna (Senokot) 8.6 mg tablet Take 2 tablets by mouth nightly. sulfamethoxazole-trim ethoprim DS (Bactrim DS) 800-160 mg tablet Take 1 tablet by mouth 2 times daily for 180 days. 60 tablet 5 12/03/2023 05/31/2024 documented as of this encounter Progress Notes * Elinor Burton RN - 12/03/2023 3:07 PM EDT [facility] Name: Tana Cavazos Date of : 1995 AGE: 28 y.o. [address]: [address] [place] [address] (home) [phone] (work) Mobile: Telephone Information: Referring Provider: Andrade Melvin REASON FOR VISIT: Order Questions Answers Where will study be performed? [facility] Radiology [120] To be scheduled Next available after expected date Reason for exam and clinical history: Status post paraspinal drain placement 10/30/2023, planning 4 week interval follow-up given 3-month course for drainage of same region in 2022. Is the patient ? No Is the patient on anticoagulant / antiplatelet therapy ? No Planned procedure: Paraspinal drain check/exchange/removal Labs to be performed day of procedure: No labs Sedation: No Sedation Prophylactic antibiotic : None Contrast: Omnipaque Additional medications for procedure: Lidocaine; Lido jelly Position: Prone Consent: Scanned Medications to discontinue (and days held): None Case Urgency:: G2- Elective Outpatient intervention within 8-14 days Allergies Allergen Reactions Fluoxetine Other (See Comments) HIVES, HEART RACES Tegaderm [Transparent Dressings] Itching and Dermatitis Please use [id number] Cyclobenzaprine Other Reaction(s): Not available Doxycycline Other [...] IV Versed 2 mg, IV Zofran 4mg 12/03/23 Drain check Local only 1440 to procedure room 3 via stretcher. Onto table lying on left side. Safety strap in place. Localonly. Laboratory Results: Lab Results Component Value Date CREATININE 0.27 (L) 11/02/2023 Lab Results Component Value Date K 3.9 11/02/2023 Lab Results Component Value Date PLATELET 477 (H) 11/02/2023 documented in this encounter H&P Notes * Gal Graves DO - 12/03/2023 2:06 PM EDT INTERVENTIONAL RADIOLOGY FOCUSED H&P: Procedure: Planned procedure: Paraspinal drain check/exchange/removal The patient's history and physical exam have been reviewed and completed. There has been no interval change from that of the pre-operative history and physical exam done within the last 30 days. Physical Exam: Cardiovascular: Regular, Normal Pulmonary: Breath sounds clear to auscultation Abdomen: non-tender, non-distended The planned procedure (and sedation plan if appropriate) , its benefits and risks, and alternativeswere discussed with the patient. The patient consented to the procedure. PRE-SEDATION ASSESSMENT: Sedation Plan: no sedation Confirm NPO status: No History of anesthetic complications: No Current medications reviewed: Yes Allergies reviewed: Yes Source Note - [place], DEMI Torres - 11/23/2023 12:56 PM EDT Images from the original note were not included. Interventional Radiology Focused Pre-procedure H&P: PCP: Lorna Bal APRN Referring Provider: Andrade Melvin Planned procedure: Paraspinal drain check/exchange/removal Procedure indication: Chronic perihardware fluid collection, first routine drain check IR workflow: Procedure request received through Interventional Radiology eDH order queue. Order Questions Answers Where will study be performed? [facility] Radiology [120] To be scheduled Next available after expected date Reason for exam and clinical history: Status post paraspinal drain placement 10/30/2023, planning 4 week interval follow-up given 3-month course for drainage of same region in 2022. Is the patient ? No Is the patient on anticoagulant / antiplatelet therapy ? No History of Present Illness: Per chart review, Tana Cavazos is a 28 y.o. female with PMH of paraspinal drain (10/30/23 - Cx w/ NGTD) in the setting of lumbar subcutaneous abscesses who presents to Interventional Radiology to undergo first routine drain check. This is a patient with past medical history significant for TBI with spastic quadriplegia, CP, nonverbal, scoliosis, with history of complicated surgical fixation hardware requiring prior percutaneous drain placement for perihardware soft tissue collection, with recent admission for fever, redness,warmth, and swelling spot on her back, found to have increased size of known focal collection at the lower mid posterior to the presacral region, compatible with fluid collection adjacent to sacral hardware and bone, now s/p 10Fr paraspinal drain on 10/29. Remainder of patient's medical and surgical history, [...] IV Versed 2 mg, IV Zofran 4mg Anticoagulation/Antiplatelet: None listed Labs: Lab Results Component Value Date HGB 11.1 (L) 11/02/2023 HCT 33.8 (L) 11/02/2023 WBC 7.5 11/02/2023 PLATELET 477 (H) 11/02/2023 BUN 13 11/02/2023 CREATININE 0.27 (L) 11/02/2023 ALBUMIN 3.5 11/02/2023 BILIDIR <0.1 04/16/2023 BILITOT <0.2 (L) 11/02/2023 AST 13 11/02/2023 ALT 27 11/02/2023 ALKPHOS 209 (H) 11/02/2023 Allergies: Fluoxetine, Tegaderm [transparent dressings], Cyclobenzaprine, Doxycycline, and Penicillins Imagin10/30/23 Assessment: 28 y.o. female with indwelling paraspinal drain presenting to Interventional Radiology for first routine drain check. Plan Planned procedure: Paraspinal drain check/exchange/removal Labs to be performed day of procedure: No labs Sedation: No Sedation Prophylactic antibiotic : None Contrast: Omnipaque Additional medications for procedure: Lidocaine, Lido jelly Position: Prone Consent: Scanned Medications to discontinue (and days held): None Cytopathology presence needed: No Case Urgency:: G2- Elective Outpatient intervention within 8-14 days Medications: Current Outpatient Medications on File Prior to Encounter Medication Sig Dispense Refill cefTRIAXone (Rocephin) 1 gram injection solution Inject 2 g into the vein daily for 39 days. Estimated EOT 12/11/2023 78 each 0 sodium chloride 0.9 %, flush, (BD PosiFlush Normal Saline 0.9) Syringe Inject 10 mLs into the vein as needed (For Line Patency - See Instructions). FLUSH PROTOCOL WITH MEDICATIONS ([facility]): Before med infusion: flush with NS 10 [...] FLUSH WITHOUT MEDICATION: Twice Daily & PRN: flushwith NS 10 mL and then heparin (10 units/mL) 3 mL 100 each PRN heparin flush, porcine, 10 unit/mL Solution Inject 3 mLs into the vein as needed (For Line Patency - See Instructions). FLUSH PROTOCOL WITH MEDICATIONS ([facility]): Before med infusion: flush with NS 10 mL. After med infusion: flush with NS 10 mL then heparin (10 units/mL) 3 mL. Additional Lumens: flushtwice daily & PRN with NS 10 mL and then heparin (10 units/mL) 3 mL. // WITH BLOOD WITHDRAWAL: B efore blood draw: flush with NS 10 mL. After blood draw: flush with NS 20 mL and then heparin (10 units/mL) 3 mL. // FLUSH WITHOUT MEDICATION: Twice Daily & PRN: flush with NS 10 mL and then heparin (10 units/mL) 3 mL 100 each PRN alteplase (Cathflo) 2 mg Recon Soln Instill reconstituted alteplase (Cathflo) 2 mg per instillation(based on volume of lumen). May repeat x1 per occlusion 1 each PRN bisacodyL (Dulcolax) [address] 10 mg rectally daily as needed (Constipation). ergocalciferoL, vitamin D2, (vitamin D2) 50,000 unit capsule Take 50,000 Units by mouth once a week. polyethylene glycoL (Miralax) 17 gram oral powder packet Take 17 g by mouth daily. senna (Senokot) 8.6 mg tablet Take 2 tablets by mouth nightly. baclofen (Lioresal) 10 mg tablet Take 10 mg by mouth 3 times daily. No current facility-administered medications on file prior to encounter. Past Medical/Surgical history: Patient Active Problem List Diagnosis Code Traumatic [...] All Drainage Procedures 06/25/2022 Mich Martino MD [facility] INTERVENTIONL RAD IR ALL DRAINAGE PROCEDURES 07/04/2022 IR All Drainage Procedures 07/04/2022 Mich Martino MD [facility] INTERVENTIONL RAD IR ALL DRAINAGE PROCEDURES 07/24/2022 IR All Drainage Procedures 07/24/2022 Anurag Kumar MD [facility] INTERVENTIONL RAD IR ALL DRAINAGE PROCEDURES 09/26/2022 IR All Drainage Procedures 09/26/2022 Jamaal Jenkins, DO [facility] INTERVENTIONL RAD IR ALL DRAINAGE PROCEDURES 10/30/2023 IR All Drainage Procedures 10/30/2023 Andrade Melvin MD [facility] INTERVENTIONL RAD IR DRAIN CHECK/CHANGE/REMOVE 07/01/2022 IR Drain Check/Change/Remove 07/01/2022 Jamaal Jenkins, DO [facility] INTERVENTIONL RAD IR DRAIN CHECK/CHANGE/REMOVE 08/11/2022 IR Drain Check/Change/Remove 08/11/2022 Piter Self MD [facility] INTERVENTIONL RAD IR DRAIN CHECK/CHANGE/REMOVE 08/25/2022 IR Drain Check/Change/Remove 08/25/2022 Jamaal Jenkins, [facility] INTERVENTIONL RAD IR DRAIN CHECK/CHANGE/REMOVE 09/10/2022 IR Drain Check/Change/Remove 09/10/2022 Mich Martino MD [facility] INTERVENTIONL RAD PRO APPLY OF HIP CASTS, TWO LEGS 08/15/2010 CAST APPLICATION, HIP SPICA, BOTH LEGS performed by BARRERA OLIVER at [facility] MAIN OR PRO COLONOSCOPY, BIOPSY N/A 08/05/2023 COLONOSCOPY FLEXIBLE, WITH BX (WRVU 3.56) performed by Jamar Gastelum MD at [facility] ENDOSCOPY PRO I&D, POST SPINE, LUMB/SACR/LUMBOSAC N/A 05/20/2014 @I & D, OPEN, DEEP ABSCESS, LUMBAR, SACRAL, LUMBOSACRAL performed by Freddy Isbell MD at [facility] MAIN OR PRO I&D, POST SPINE, LUMB/SACR/LUMBOSAC N/A 05/26/2014 @I & D, OPEN, DEEP ABSCESS, LUMBAR, SACRAL, LUMBOSACRAL performed by Freddy Isbell MD at [facility] MAIN OR PRO IMPACT TOOTH REMOV COMP BONY N/A 06/14/2018 SURGICAL EXTRACTIONS, REMOVAL OF IMPACTED TOOTH, COMPLETELY BONY (WRVU 1.93) performed by Keith Cotton MD at [facility] OSC PRO OSTEOTOMY FEMUR SHAFT/SUPRACONDY 08/15/2010 ??OSTEOTOMY, FEMUR SHAFT OR SUPRACONDYLAR W/O FIXATION performed by BARRERA OLIVER at [facility] MAIN OR PRO RECONSTRUC HIP SOCKET, RESEC FEM HEAD 08/15/2010 ??ACETABULOPLASTY (GIRDLESTONE), RESECTION FEMORAL HEAD, BILATERAL performed by BARRERA OLIVER [facility] MAIN OR PRO REMOVAL DEEP IMPLANT 08/15/2010 REMOVAL IMPLANT, DEEP, BRUNO performed by BARRERA OLIVER at [facility] MAIN OR PRO REMOVAL ERUPTED TOOTH WITH ELEVATION OF MUCOPERIOSTEAL FLAP N/A 06/14/2018 SURGICAL EXTRACTIONS REQUIRING ELEVATION OF MUCOPERIOSTEAL FLAP AND REMOVAL OF BONE OR SECTION OF TOOTH (WRVU 1.09) performed by Keith Cotton MD at [facility] OSC PRO REMOVE INFUSN DEVICE/PUMP N/A 05/11/2014 REMOVAL OF SPINE INFUSION PUMP performed by Jamaal Samuel MD at [facility] MAIN OR PRO REMOVE SPINAL CANAL CATHETER N/A 05/11/2014 REMOVAL OF INTRATHECAL OR EPIDURAL CATHETER performed by Jamaal Samuel MD at [facility] MAIN OR PRO REPR, DURAL/CSF LEAK, NOT REQ LAMINECTOMY N/A 05/20/2014 @REPAIR DURAL\CSF LEAK,NOT REQUIRING LAMINECTOMY performed by Freddy Isbell MD at [facility] MAIN OR Social History and Habits: Social History Tobacco Use Smoking status: Never Passive exposure: Never Smokeless tobacco: Never Tobacco comments: NO SMOKERS IN THE HOME Vaping Use Vaping status: Never Used Substance Use Topics Alcohol use: No Drug use: No Significant Family History: Family History Problem Relation Age of Onset Cancer Maternal Grandmother Heart Disease Maternal Grandfather Pertinent ROS: as per HPI Physical Exam: Pending (to be performed in IR the day of procedure) ASA: Pending (to be assessed in IR the day of procedure) Mallampati class: Pending (to be assessed in IR the day of procedure) 11/23/2023 Anamika Todd PA-C * Anamika Todd PA - 11/23/2023 12:56 PM EDT Images from the original note were not included. Interventional Radiology Focused Pre-procedure H&P: PCP: Lorna Bal APRN Referring Provider: Andrade Melvin Planned procedure: Paraspinal drain check/exchange/removal Procedure indication: Chronic perihardware fluid collection, first routine drain check IR workflow: Procedure request received through Interventional Radiology eDH order queue. Order Questions Answers Where will study be performed? [facility] Radiology [120] To be scheduled Next available after expected date Reason for exam and clinical history: Status post paraspinal drain placement 10/30/2023, planning 4 week interval follow-up given 3-month course for drainage of same region in 2022. Is the patient ? No Is the patient on anticoagulant / antiplatelet therapy ? No History of Present Illness: Per chart review, Tana Cavazos is a 28 y.o. female with PMH of paraspinal drain (10/30/23 - Cx w/ NGTD) in the setting of lumbar subcutaneous abscesses who presents to Interventional Radiology to undergo first routine drain check. This is a patient with past medical history significant for TBI with spastic quadriplegia, CP, nonverbal, scoliosis, with history of complicated surgical fixation hardware requiring prior percutaneous drain placement for perihardware soft tissue collection, with recent admission for fever, redness,warmth, and swelling spot on her back, found to have increased size of known focal collection at the lower mid posterior to the presacral region, compatible with fluid collection adjacent to sacral hardware and bone, now s/p 10Fr paraspinal drain on 10/29. Remainder of patient's medical and surgical history, [...] IV Versed 2 mg, IV Zofran 4mg Anticoagulation/Antiplatelet: None listed Labs: Lab Results Component Value Date HGB 11.1 (L) 11/02/2023 HCT 33.8 (L) 11/02/2023 WBC 7.5 11/02/2023 PLATELET 477 (H) 11/02/2023 BUN 13 11/02/2023 CREATININE 0.27 (L) 11/02/2023 ALBUMIN 3.5 11/02/2023 BILIDIR <0.1 04/16/2023 BILITOT <0.2 (L) 11/02/2023 AST 13 11/02/2023 ALT 27 11/02/2023 ALKPHOS 209 (H) 11/02/2023 Allergies: Fluoxetine, Tegaderm [transparent dressings], Cyclobenzaprine, Doxycycline, and Penicillins Imagin10/30/23 Assessment: 28 y.o. female with indwelling paraspinal drain presenting to Interventional Radiology for first routine drain check. Plan Planned procedure: Paraspinal drain check/exchange/removal Labs to be performed day of procedure: No labs Sedation: No Sedation Prophylactic antibiotic : None Contrast: Omnipaque Additional medications for procedure: Lidocaine, Lido jelly Position: Prone Consent: Scanned Medications to discontinue (and days held): None Cytopathology presence needed: No Case Urgency:: G2- Elective Outpatient intervention within 8-14 days Medications: Current Outpatient Medications on File Prior to Encounter Medication Sig Dispense Refill cefTRIAXone (Rocephin) 1 gram injection solution Inject 2 g into the vein daily for 39 days. Estimated EOT 12/11/2023 78 each 0 sodium chloride 0.9 %, flush, (BD PosiFlush Normal Saline 0.9) Syringe Inject 10 mLs into the vein as [...] FLUSH WITHOUT MEDICATION: Twice Daily & PRN: flushwith NS 10 mL and then heparin (10 units/mL) 3 mL 100 each PRN heparin flush, porcine, 10 unit/mL Solution Inject 3 mLs into the vein as needed (For Line Patency - See Instructions). FLUSH PROTOCOL WITH MEDICATIONS ([facility]): Before med infusion: flush with NS 10 mL. After med infusion: flush with NS 10 mL then heparin (10 units/mL) 3 mL. Additional Lumens: flushtwice daily & PRN with NS 10 mL and then heparin (10 units/mL) 3 mL. // WITH BLOOD WITHDRAWAL: B efore blood draw: flush with NS 10 mL. After blood draw: flush with NS 20 mL and then heparin (10 units/mL) 3 mL. // FLUSH WITHOUT MEDICATION: Twice Daily & PRN: flush with NS 10 mL and then heparin (10 units/mL) 3 mL 100 each PRN alteplase (Cathflo) 2 mg Recon Soln Instill reconstituted alteplase (Cathflo) 2 mg per instillation(based on volume of lumen). May repeat x1 per occlusion 1 each PRN bisacodyL (Dulcolax) [address] 10 mg rectally daily as needed (Constipation). ergocalciferoL, vitamin D2, (vitamin D2) 50,000 unit capsule Take 50,000 Units by mouth once a week. polyethylene glycoL (Miralax) 17 gram oral powder packet Take 17 g by mouth daily. senna (Senokot) 8.6 mg tablet Take 2 tablets by mouth nightly. baclofen (Lioresal) 10 mg tablet Take 10 mg by mouth 3 times daily. No current facility-administered medications on file prior to encounter. Past Medical/Surgical history: Patient Active Problem List Diagnosis Code Traumatic [...] All Drainage Procedures 06/25/2022 Mich Martino MD [facility] INTERVENTIONL RAD IR ALL DRAINAGE PROCEDURES 07/04/2022 IR All Drainage Procedures 07/04/2022 Mich Martino MD [facility] INTERVENTIONL RAD IR ALL DRAINAGE PROCEDURES 07/24/2022 IR All Drainage Procedures 07/24/2022 Anurag Kumar MD [facility] INTERVENTIONL RAD IR ALL DRAINAGE PROCEDURES 09/26/2022 IR All Drainage Procedures 09/26/2022 Jamaal Jenkins DO [facility] INTERVENTIONL RAD IR ALL DRAINAGE PROCEDURES 10/30/2023 IR All Drainage Procedures 10/30/2023 Andrade Melvin MD [facility] INTERVENTION RAD IR DRAIN CHECK/CHANGE/REMOVE 07/01/2022 IR Drain Check/Change/Remove 07/01/2022 Jamaal Jenkins, DO [facility] INTERVENTIONL RAD IR DRAIN CHECK/CHANGE/REMOVE 08/11/2022 IR Drain Check/Change/Remove 08/11/2022 Piter Self MD [facility] INTERVENTIONL RAD IR DRAIN CHECK/CHANGE/REMOVE 08/25/2022 IR Drain Check/Change/Remove 08/25/2022 Jamaal Jenkins, DO [facility] INTERVENTIONL RAD IR DRAIN CHECK/CHANGE/REMOVE 09/10/2022 IR Drain Check/Change/Remove 09/10/2022 Mich Martino MD [facility] INTERVENTIONL RAD PRO APPLY OF HIP CASTS, TWO LEGS 08/15/2010 CAST APPLICATION, HIP SPICA, BOTH LEGS performed by BARRERA OLIVER at [facility] MAIN OR PRO COLONOSCOPY, BIOPSY N/A 08/05/2023 COLONOSCOPY FLEXIBLE, WITH BX (WRVU 3.56) performed by Jamar Gastelum MD at [facility] ENDOSCOPY PRO I&D, POST SPINE, LUMB/SACR/LUMBOSAC N/A 05/20/2014 @I & D, OPEN, DEEP ABSCESS, LUMBAR, SACRAL, LUMBOSACRAL performed by Freddy Isbell MD at [facility] MAIN OR PRO I&D, POST SPINE, LUMB/SACR/LUMBOSAC N/A 05/26/2014 @I & D, OPEN, DEEP ABSCESS, LUMBAR, SACRAL, LUMBOSACRAL performed by Freddy Isbell MD at [facility] MAIN OR PRO IMPACT TOOTH REMOV COMP BONY N/A 06/14/2018 SURGICAL EXTRACTIONS, REMOVAL OF IMPACTED TOOTH, COMPLETELY BONY (WRVU 1.93) performed by Keith Cotton MD at [facility] OSC PRO OSTEOTOMY FEMUR SHAFT/SUPRACONDY 08/15/2010 ??OSTEOTOMY, FEMUR SHAFT OR SUPRACONDYLAR W/O FIXATION performed by BARRERA OLIVER at [facility] MAIN OR PRO RECONSTRUC HIP SOCKET, RESEC FEM HEAD 08/15/2010 ??ACETABULOPLASTY (GIRDLESTONE), RESECTION FEMORAL HEAD, BILATERAL performed by BARRERA OLIVER [facility] MAIN OR PRO REMOVAL DEEP IMPLANT 08/15/2010 REMOVAL IMPLANT, DEEP, BRUNO performed by BARRERA OLIVER at [facility] MAIN OR PRO REMOVAL ERUPTED TOOTH WITH ELEVATION OF MUCOPERIOSTEAL FLAP N/A 06/14/2018 SURGICAL EXTRACTIONS REQUIRING ELEVATION OF MUCOPERIOSTEAL FLAP AND REMOVAL OF BONE OR SECTION OF TOOTH (WRVU 1.09) performed by Keith Cotton MD at [facility] OSC PRO REMOVE INFUSN DEVICE/PUMP N/A 05/11/2014 REMOVAL OF SPINE INFUSION PUMP performed by Jamaal Samuel MD at [facility] MAIN OR PRO REMOVE SPINAL CANAL CATHETER N/A 05/11/2014 REMOVAL OF INTRATHECAL OR EPIDURAL CATHETER performed by Jamaal Samuel MD at [facility] MAIN OR PRO REPR, DURAL/CSF LEAK, NOT REQ LAMINECTOMY N/A 05/20/2014 @REPAIR DURAL\CSF LEAK,NOT REQUIRING LAMINECTOMY performed by Freddy Isbell MD at [facility] MAIN OR Social History and Habits: Social History Tobacco Use Smoking status: Never Passive exposure: Never Smokeless tobacco: Never Tobacco comments: NO SMOKERS IN THE HOME Vaping Use Vaping status: Never Used Substance Use Topics Alcohol use: No Drug use: No Significant Family History: Family History Problem Relation Age of Onset Cancer Maternal Grandmother Heart Disease Maternal Grandfather Pertinent ROS: as per HPI Physical Exam: Pending (to be performed in IR the day of procedure) ASA: Pending (to be assessed in IR the day of procedure) Mallampati class: Pending (to be assessed in IR the day of procedure) 11/23/2023 Anamika Todd PA-C documented in this encounter Plan of Treatment Upcoming Encounters Date Type Department Care Team (Late st Contact Info) Description 06/02/2024 12:30 PM EST Office [place] [address] Hollie Ambriz MD [facility] [place] [address] Scheduled Orders Name Type Priority Associated Diagnoses Orde r Schedule IR Drain Check/Change/Remove Imaging Routine Abscess Expected: 12/14/2023, Expires: 06/14/2024 documented as of this encounter Procedures Procedure Name Priority Date/Time Associated Diagnosis Comments IR DRAIN CHECK/CHANGE/REMOVE Routine 12/03/2023 3:21 PM EDT Abscess documented in this encounter Results * IR Drain Check/Change/Remove (12/03/2023 3:21 PM EDT) Anatomical Region Laterality Modality Head X-Ray Angiograph y Narrative 12/03/2023 3:13 PM EDT Preoperative Diagnosis: ? Paraspinal abscess with drain in place, diminished drain output. Postoperative Diagnosis: ?? Same Procedure Performed: IR Drain check with fluoroscopy. Estimated Blood Loss: None Fluoroscopy time: Please see eDH IR technologist record for procedural dose/time Cefazolin/ cefuroxime was not ordered for antimicrobial prophylaxis as it is not indicated or strongly backed by the medical literature. Anesthesia: 1. None. The patient was informed of the risks, benefits, and alternatives to the procedure and gave written consent, which was then placed in the chart. Appropriate time-out was performed prior to the procedure. Description of Procedure: ??All elements of maximal sterile barrier technique were met including cap, mask, sterile gown, sterile gloves, large sterile sheet, hand hygiene and 2% chlorhexidine for cutaneous antisepsis. The existing drain was prepped and draped in the usual sterile fashion. Contrast was administered through the existing drain demonstrating a moderate residual cavity. ??The drain appears to be in good position. ?? Drain was flushed and attached to bulb suction. Impression: The existing drain demonstrates a residual moderate cavity. ??As this abscess has been recurrent, we will leave the drain in place for approximately 10 more days, and then recheck. ??If the patient continues to do well with low output, we can consider removing the drain at that time. I, the attending interventional radiologist performed the entire procedure. ?? Andrade Melvin MD [facility] [place] documented in this encounter Visit Diagnoses Diagnosis Abscess Cellulitis and abscess of unspecified site documented in this encounter Administered Medications Inactive Administered Medications - up to 3 most recent administrations Medication Order MAR Action Action Date Dose Rate Site iohexoL (Omnipaque) (350 mg/mL) solution 1-400 mL 1-400 mL, Other, ONCE, 1 dose, On Dianne 12/03/23 at 1530, For intra-procedural use by proceduralist., Angio/IR (Intra-Procedure), Routine Given 12/03/2023 3:30 PM EDT 6 mLs documented in this encounter Care Teams Senior Program Manager Relationship Specialty Start Date End Date Lorna Bal APRN [address] [place] [address] PCP - General Family Medicine 05/27/18 documented as of this encounter
--- OUTSIDE RECORDS SUMMARY | 2023-12-04 12:34 | XMS_ITS | Encounter Summary ---
Author Organization [facility] Address [facility] [place] [address] Care Team Providers Care Ophthalmic Surgeon Name Role Phone Lorna Bal APRN Primary Care Provider [phone] [phone] Encounter Details Date Type Department Care Team (Late st Contact Info) Description 11/25/2023 2:00 PM EDT TH Visit (TeleHealth) [place] [phone] Lilli Joy APRN [facility] [place] [address] Social History Tobacco Use Types Packs/Day Years Used Date Smoking Tobacco: Never Passive Smoke Exposure: Never Smokeless Tobacco: Never Comments:NO SMOKERS IN THE H OME Alcohol Use Standard Drinks/Week Comments No 0 (1 standard drink = 0.6 oz pur e alcohol) [facility] Utilities Answer Date Recorded In [...] any time in the past 12 m [facility], were you homeless or living in a penitentiary (including now)? No 10/29/2023 IPV Inpatient Questions [...] PM EST Office [place] [address] Hollie Ambriz MD [facility] [place] [address] documented as of this encounter Visit Diagnoses Not on filedocumented in this encounter Care Teams Ophthalmic Surgeon Relationship Specialty Start Date End Date Lorna Bal APRN [address] [place] [address] PCP - General Family Medicine 05/27/18 documented as of this encounter
--- OUTSIDE RECORDS SUMMARY | 2023-12-04 12:34 | XMS_ITS | Encounter Summary ---
Author Organization [facility] Address [facility] [place] [address] Care Team Providers Care Child Daycare Worker Name Role Phone Lorna Bal APRN Primary Care Provider [phone] [phone] Encounter Details Date Type Department Care Team (Late st Contact Info) Description 12/03/2023 Orders [place] [address] Hollie Ambriz MD [facility] [place] [address] Spinal abscess; Bacteremia; jail 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 Social History Tobacco Use Types Packs/Day Years Used Date Smoking Tobacco: Never Passive Smoke Exposure: Never Smokeless Tobacco: Never Comments:NO SMOKERS IN THE H OME Alcohol Use Standard Drinks/Week Comments No 0 (1 standard drink = 0.6 oz pur e alcohol) [facility] Utilities Answer Date Recorded In [...] any time in the past 12 m [facility], were you homeless or living in a senior living (including now)? 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
--- OUTSIDE RECORDS SUMMARY | 2023-12-04 12:34 | XMS_ITS | Encounter Summary ---
[place] [address] Care Team Providers Care Bander Hand Name Role Phone Lorna Bal APRN Primary Care Provider [phone] [phone] Encounter Details Date Type Department Care Team (Late st Contact Info) Description 12/03/2023 1:45 PM EDT Laboratory Appointment Lab [address] [place] [address] Arrived Social History Tobacco Use Types Packs/Day Years Used Date Smoking Tobacco: Never Passive Smoke Exposure: Never Smokeless Tobacco: Never Comments:NO SMOKERS IN THE H OME Alcohol Use Standard Drinks/Week Comments No 0 (1 standard drink = 0.6 oz pur e alcohol) [facility] Utilities Answer Date Recorded In the past 12 months has [employer] electric, gas, oil, or water [employer] threatened to shut off services in [...] any time in the past 12 m [facility], were you homeless or living in [...] PM EST Office Visit [place] [address] Hollie Ambriz MD [facility] [place] [address] documented as of this encounter Visit Diagnoses Not on filedocumented in this encounter Care Teams Bander Hand Relationship Specialty Start Date End Date Lorna Bal APRN [address] [place] [address] PCP - General Family Medicine 05/27/18 documented as of this encounter
--- OUTSIDE RECORDS SUMMARY | 2023-12-04 12:34 | XMS_ITS | Encounter Summary ---
Author Organization [facility] Address [facility] [place] [address] Care Team Providers Care Requisition Approver Name Role Phone Lorna Bal APRN Primary Care Provider [phone] [phone] Reason for Visit * Consultation (Routine) - Closed Specialty Diagnoses / Procedures Referred By Contac t Referred To Contact Infectious Diseases Diagnoses Spinal abscess Nikolay Toledo MD [facility] INFECT[place] [address] Nikolay Toledo MD [facility] INFECTI[place] [address] Referral ID Status Reason Start Date Expiration Date V isits Requested Visits Authorized [id number] Closed Assume Subset of Care 11/02/2023 11/01/2024 1 1 Encounter Details Date Type Department Care Team (Late st Contact Info) Description 12/03/2023 12:30 PM EDT Office [place] [address] Nikolay Toledo MD [facility] INFECTIOUS [place] [address] 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 Dx); 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 Social History Tobacco Use Types Packs/Day Years Used Date Smoking Tobacco: Never Passive Smoke Exposure: Never Smokeless Tobacco: Never Comments:NO SMOKERS IN THE H OME Alcohol Use Standard Drinks/Week Comments No 0 (1 standard drink = 0.6 oz pur e alcohol) [facility] Utilities Answer Date Recorded In the [...] any time in the past 12 m onths, were you homeless or living in a [...] Sign Reading Time Taken Comments Blood Pressure 102/62 12/03/2023 12:37 PM EDT Pulse 77 12/03/2023 12:37 PM EDT Temperature 35.3 ??C (95.5 ??F) 12/03/2023 12:37 PM E DT Respiratory Rate 12 12/03/2023 12:37 PM EDT Oxygen Saturation 98% 12/03/2023 12:37 PM EDT Inhaled Oxygen Concentration - - Weight - - Height - - Body Mass Index - - documented in this encounter Progress Notes * Nikolay Toledo MD - 12/03/2023 12:30 PM EDT Infectious Disease Clinic Visit CC: Recurrent spinal infection History of Present Illness: Tana Cavazos is a 28 y.o. female with Hx of cerebral palsy w/ spastic quadriplegia, non-verbal at baseline, as well as prior posterolateral spinal fusion in 2008 and bilateral Girdlestones in 2010, who was admitted to [facility] in May 2022 for redness and tenderness [...] site, for which she was readmitted to [facility] on 07/22 to manage this issue. On arrival to [facility], she was afebrile without leukocytosis. Repeat of [...] evaluated by spine surgery multiple times at [facility] and was not deemeda candidate for operative intervention. Then, she was seen at [facility] for a second surgical opinion. On 08/27/2022, superficialCxs there revealed growth of Staph hemolyticus and capitis. She was initially continued on doxycycline for this but subsequently switched to TMP-SMX in early September 2022 given ?possible allergic reaction. She also did undergo re-insertion of IR drains on 09/26, with Cxs again returning negative. Eventually, she got a third surgical opinion at [facility] in [place] given the need for plastics closure of [...] continued to follow in ID clinic at [facility]. We discussed the equipoise as to whether [...] on 10/29, with aspiration of purulent fluid. Unfortunately, even though Cxs were obtained off of antibiotics, they failed to reveal growth of pathogenic organisms. Ultimately, the decision wasmade to re-treat with a 6 week course of IV ceftriaxone, after which she would presumably need to be placed back onto a mcfp suppressive antibiotic. Today, patient presents to ID clinic for dqo-yl-lcsiopy visit, accompanied by her caregivers, Liz Mckay. Overall, she has been doing well since discharge. Her IR drain remains in place, thoughoutput has dropped off and turned clear. She has an appointment with IR later this afternoon to assess for removal. She has not had any fever or chills. She has been fully compliance with her IV ceftriaxone without any missed doses. No side effects such as nausea, diarrhea, or rash. Has had no issues with PICC line, such as difficulty with medication administration, drainage, or surrounding erythema. Antimicrobials: Ceftriaxone Review of Systems: As above, otherwise 14 [...] L02.91 Skin ulcer of back L98.429 Medications: baclofen 15 mg Tablet iron,carbonyl (IRON CHEWS ORAL) cholecalciferol, vitamin D3, (VITAMIN D3 ORAL) Lactobacillus acidophilus (PROBIOTIC ORAL) MULTIVITAMIN ORAL nystatin (MYCOSTATIN) 100,000 unit/gram Powder cefTRIAXone (Rocephin) 1 gram injection solution sodium chloride 0.9 %, flush, (BD PosiFlush Normal Saline 0.9) Syringe heparin flush, porcine, 10 unit/mL Solution alteplase (Cathflo) 2 mg Recon Soln bisacodyL (Dulcolax) 10 mg Suppository polyethylene glycoL (Miralax) 17 gram oral powder packet senna (Senokot) 8.6 mg tablet sulfamethoxazole-trimethoprim DS (Bactrim DS) 800-160 mg tablet ergocalciferoL, vitamin D2, (vitamin D2) 50,000 unit capsule baclofen (Lioresal) 10 mg tablet Allergies: Allergies Allergen Reactions Fluoxetine Other (See Comments) HIVES, HEART RACES Tegaderm [Transparent Dressings] Itching and Dermatitis Please use [id number] Cyclobenzaprine Other Reaction(s): Not available Doxycycline Other [...] value Range last 24 hrs Temperature Temp: 35.3 ??C (95.5 ??F) Temp: [35.3 ??C (95.5 ??F)] Heart Rate Heart Rate: 77 Heart Rate: [77] Blood Pressure BP: 102/62 BP: (102)/(62) Respiratory Rate Resp: 12 Resp: [12] SpO2 SpO2: 98 % SpO2: [98 %] Physical Exam: General: In no acute distress, sitting in wheelchair comfortably, pleasant Neck: Supple, trachea midline Pulmonary: Breathing comfortably on room air, no audible wheezing Back: IR drain in place with scant output of clear fluid Extremities: L upper extremity PICC line in place with overlying dressing, no drainage or surrounding erythema Skin: No rashes or lesions noted on visible skin Neuro: Alert, no focal deficits, moving all extremities spontaneously Psych: Normal mood and affect, linear thought process Laboratory: Recent Labs 11/02/2352510/31/2344610/30/238 WBC 7.5 5.2 6.9 HGB 11.1* 11.1* 11.3* HCT 33.8* 33.8* 34.8* PLATELET 477* 488* 432* Recent Labs 11/02/2352510/31/2344610/30/238 NA 138 140 136 K 3.9 3.8 4.1 CL 104 106 102 CO2 21* 23 23 BUN 13 8 7* CREATININE 0.27* 0.27* 0.33* Recent Labs 11/02/2352509/24/23 1103 04/16/23 1620 AST 13 23 15 ALT 27 49* 40* ALKPHOS 209* 302* 320* BILITOT <0.2* 0.3 <0.2* BILIDIR -- -- <0.1 Microbiology: 10/30 MRSA swab - negative 10/29 [...] the underlying sacrum concerning for associated osteomyelitis. Impression & Plan: Tana Cavazos is a 28 y.o. female [...] and washout with complex plastics closure at [facility] in [place] on 02/11/23, after which she was treated with 6 weeks of IV vancomycin + pip-tazo. Then, she was placed on suppressive TMP-SMX to complete a total of ~7 months of treatment, which was eventually stopped on 09/24/23. She was re-admitted to [facility] in early October 2023 with erythema and warmth at the previous incision site, w/ CT L-spine showing a reaccumulated collection with concern for underlying osteomyelitis. She underwent IR drainage on 10/29, at which point purulent material was expressed, though Cxs were frustratingly negative despite antibiotics having been held pre-procedure. However, there is no doubt based on her clinical trajectory that her spinal collections are infected. She has now completed 5 of her planned 6 week course of IV ceftriaxone, with excellent clinical response. Her IR drain output has come down to the point where I suspect the drain will be ready to come out today, though even if this stays in place, this will not impact our antibiotic plan. Once she completes the IV ceftriaxone on 12/10, I would like to step her down to TMP-SMX at her previous dose of 1 DS tab twice daily, as this worked well for her previously. I ordered repeat CBC w/ diff, CMP, and CRP to be drawn ~1 month after making this switch. I would like to see her again in 6 months, atwhich point I might consider dropping her TMP-SMX dose to a lower dose for coke burner suppression ofinfection, such as 1 DS tab daily, if all continues to go well. I spent a total of 35 minutes on the date of service on the cunu-ct-hoye encounter, chart review, clinical decision making, documentation, and coordination of care. RTC: 6 months Nikolay Toledo MD Staff Physician in Infectious Diseases documented in this encounter Miscellaneous Notes * Addendum Note - Nikolay Toledo MD - 12/03/2023 12:30 PM EDTAddended by: NIKOLAY TOLEDO on: 12/04/2023 08:54 AM Modules accepted: Level of Service documented in this encounter Plan of Treatment Upcoming Encounters Date Type Department Care Team (Late st Contact Info) Description 06/02/2024 12:30 PM EST Office [place] [address] Nikolay Toledo MD [facility] DR INFECTIOUS [place] [address] documented as of this encounter Visit Diagnoses Diagnosis Spinal abscess- Primary Acute osteomyelitis, other specified site senior care 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 Encounter for long-term (current) use of antibiotics documented in this encounter Care Teams Requisition Approver Relationship Specialty Start Date End Date Lorna Bal APRN [address] [place] [address] PCP - General Family Medicine 05/27/18 documented as of this encounter
--- OUTSIDE RECORDS SUMMARY | 2023-12-04 12:34 | XMS_ITS | Encounter Summary ---
Author Organization [facility] Address [facility] [place] [address] Care Team Providers Care Alignment Mechanic Name Role Phone Lorna Bal APRN Primary Care Provider [phone] [phone] Encounter Details Date Type Department Care Team (Late st Contact Info) Description 12/03/2023 Notes Only [place] [phone] Mesha Mckeon, RN Social History Tobacco Use Types Packs/Day Years Used Date Smoking Tobacco: Never Passive Smoke Exposure: Never Smokeless Tobacco: Never Comments:NO SMOKERS IN THE H OME Alcohol Use Standard Drinks/Week Comments No 0 (1 standard drink = 0.6 oz pur e alcohol) [facility] Utilities Answer Date Recorded In the past 12 months has e electric, gas, oil, or water [employer] threatened to shut off services in your [...] in the past 12 m [facility], were you homeless or living in a correction (including now)? No 10/29/2023 IPV Inpatient Questions [...] Progress Notes * Mesha Mckeon, RN - 12/03/2023 4:49 PM EDT Infectious Disease/OPAT Program Fax d/c PICC Order Faxed d/c PICC order to [facility] on 12/02 at 1645 Confirmed fax on 12/02 at 1650 documented in this encounter Plan of Treatment Upcoming Encounters Date Type Department Care Team (Late st Contact Info) Description 06/02/2024 12:30 PM EST Office Visit [place] [phone] Hollie Ambriz MD [facility] [place] [address] documented as of this encounter Visit Diagnoses Not on filedocumented in this encounter Care Teams Alignment Mechanic Relationship Specialty Start Date End Date Lorna Bal APRN [address] [place] [address] PCP - General Family Medicine 05/27/18 documented as of this encounter
--- OUTSIDE RECORDS SUMMARY | 2023-12-04 12:34 | XMS_ITS | Clinical Summary ---
Author Organization [facility] Address [address] [facility] [place] [address] Care Team Providers Care Sister Superior Name Role Phone Lorna Bal APRN Primary Care Provider [phone] Allergies Active Allergy Reactions Criticality Noted Date Comments Cyclobenzaprine 01/28/2023 Other Reaction(s): Not available Doxycycline Other (See Comments) 08/05/2023 Cough, rash Fluoxetine Other (See Comments) High 02/28/2014 HIVES, HEART RACES Penicillins 06/24/2022 Transparent Dressings Itching,Dermatitis Medium 2014 Please use [id number] Medications Medication Sig Dispensed Refills Start Date End Date Status senna (Senokot) 8.6 mg tablet Take 2 tablets by mouth nightly. Active polyethylene glycoL (Miralax) 17 gram oral powder packet Take 17 g by mouth daily. 07/09/2022 Active bisacodyL (Dulcolax) [address] [...] - See Instructions). FLUSH PROTOCOL WITH MEDICATIONS ([facility]): Before med infusion: flush with NS 10 [...] - See Instructions). FLUSH PROTOCOL WITH MEDICATIONS ([facility]): Before med infusion: flush with NS 10 [...] x1 per occlusion 1 each 11/02/2023 Active sulfamethoxazole-t rimethoprim DS (Bactrim DS) 800-160 mg tablet Take 1 tablet by mouth 2 times daily for 180 days. 60 tablet 5 12/03/2023 05/31/2024 Active baclofen 15 mg Tablet Take 15 mg by mouth 3 times daily. Active iron,carbonyl (IRON CHEWS ORAL) Take 1 gummy by mouth daily. Unsure of dosage Active cholecalciferol, vitamin D3, (VITAMIN D3 ORAL) Take 1 tablet by mouth daily. Unsure of dosage Active Lactobacillus acidophilus (PROBIOTIC ORAL) Take 1 gummy by mouth daily. Active MULTIVITAMIN ORAL Take 1 gummy by mouth daily. Active nystatin (MYCOSTATIN) 100,000 unit/gram Powder Apply topically 4 times daily. Active Active Problems Problem Noted Date Diagnosed [...] Encounters Date Type Department Care Team Description 12/03/2023 1:45 PM EDT Laboratory Appointment Lab 3L [address] Arrived 12/03/2023 1:20 PM EDT - 12/03/2023 11:59 PM EDT Hospital Encounter Radiology at [place] [phone] Andrade Melvin MD Abscess Discharge Disposition: Home 12/03/2023 12:30 PM EDT Office Visit Infectious Disease at [place] [phone] Hollie Ambriz MD 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 Dx); [facility] 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 12/03/2023 Notes Only Infectious Disease at [place] [phone] Mesha Mckeon RN 12/03/2023 Orders Only Infectious Disease at [place] [phone] Hollie Ambriz MD 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; 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; 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 12/03/2023 Travel 12/02/2023 Orders Only Infectious Disease at [place] [phone] Hollie Ambriz MD Spinal abscess; Bacteremia 11/25/2023 2:00 PM EDT TH Visit (TeleHealth) [place] [address] Lilli Joy, PE MANAGER 11/09/2023 Telephone Infectious Disease at [place] [phone] Yas Tracy RN 10/28/2023 8:05 PM EDT - 11/03/2023 5:25 PM EDT Hospital Encounter Medical Specialites Unit Level 1 [place] [address] Hernandez, MD Damaris Arias John, MD Etiwy, Muhammad, MD Ivan, Adrian M, MD Lurie, Jonathan D, MD Abscess; Spinal abscess Discharge Disposition: Home with [facility]NA 10/28/2023 Travel 10/28/2023 Telephone Infectious Disease at [place] [address] Neva Thorpe, RN 10/28/2023 Telephone Infectious Disease at [place] [phone] Neva Thorpe, RN 10/28/2023 Telephone Infectious Disease at [place] [phone] Neva Tohrpe, RN 10/28/2023 Telephone Infectious Disease at [place] [phone] Neva Thorpe, RN 10/27/2023 Telephone [place] [address] Hollie Ambriz MD 10/27/2023 Telephone Infectious Disease at [place] [phone] Halima García 09/29/2023 10:30 AM EDT Office [place] [address] Chuckie Mayfield MD Chronic pain of right thumb; 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 09/29/2023 10:00 AM EDT Office [place] [address] Gaby Lake OT 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; Spasticity 09/29/2023 Travel 09/28/2023 Orders [place] [phone] Hollie Ambriz MD [facility] 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; Spinal abscess; Acute hematogenous osteomyelitis, unspecified site 09/24/2023 10:00 AM EDT Office [place] [phone] George Tipton MD Spinal abscess; [facility] 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 09/24/2023 Travel 09/10/2023 [place] [phone] Hollie Ambriz MD from Last 3 Months Immunizations Name Administration Dates Next Due Influenza (Novel [id number]) Injectable 02/25/2009 Influenza Trivalent w/Preservative 04/25/2011 Influenza [...] = 0.6 oz pur e alcohol) [facility] Utilities Answer Date Recorded In the past 12 months has [employer] electric, gas, oil, or water company threatened [...] any time in the past 12 m [facility], were you homeless or living in [...] PM EST Office Visit Infectious Disease at [facility] [place] [address] Hollie Ambriz MD [facility] [place] [address] Health Maintenance Due Date Last Done Comments [...] CHECK/CHANGE/REMOVE Routine 12/03/2023 3:21 PM EDT Abscess LAB SCAN 11/25/2023 12:00 AM EDT LAB SCAN 11/23/2023 12:00 AM EDT LAB SCAN 11/18/2023 12:00 AM EDT LAB [...] EDT HEMOGRAM Routine 11/02/2023 5:26 AM EDT CK Routine 11/02/2023 5:26 AM EDT CBC (WITH DIFF) Routine 11/02/2023 5:26 AM EDT COMPREHENSIVE METABOLIC PANEL Routine 11/02/2023 5:26 AM EDT CRP, ACUTE INFLAMMATION Routine 11/02/2023 5:26 AM EDT XR ABDOMEN 1 VIEW Routine 11/01/2023 10: 14 PM EDT MRSA PCR SCREEN Routine 10/31/2023 6:10 PM EDT DIFFERENTIAL, AUTOMATED Routine 10/31/2023 4:47 AM EDT HEMOGRAM Routine 10/31/2023 4:47 AM EDT SEDIMENTATION RATE Routine 10/31/2023 4: 47 AM EDT CRP, ACUTE INFLAMMATION Routine 10/31/2023 4:47 AM EDT MAGNESIUM Routine 10/31/2023 4:47 AM EDT BASIC METABOLIC PANEL Routine 10/31/2023 4:47 AM EDT CBC (WITH DIFF) Routine 10/31/2023 4:47 AM EDT IR ALL DRAINAGE PROCEDURES STAT 10/30/2023 3:23 PM EDT ANAEROBIC CULTURE Routine 10/30/2023 3:0 2 PM EDT BODY FLUID CULTURE, AEROBIC Routine 10/30/2023 3:02 PM EDT HC GRAM STAIN FOR BACTERIA Routine 10/30/2023 3:02 PM EDT CK Routine 10/30/2023 4:48 AM EDT DIFFERENTIAL, AUTOMATED Routine 10/30/2023 4:48 AM EDT HEMOGRAM Routine 10/30/2023 4:48 AM EDT SEDIMENTATION RATE Routine 10/30/2023 4: 48 AM EDT CRP, ACUTE INFLAMMATION Routine 10/30/2023 4:48 AM EDT MAGNESIUM Routine 10/30/2023 4:48 AM EDT BASIC METABOLIC PANEL Routine 10/30/2023 4:48 AM EDT CBC (WITH DIFF) Routine 10/30/2023 4:48 AM EDT POCT URINE STAT 10/29/2023 10:26 AM EDT DIFFERENTIAL, AUTOMATED Routine 10/29/2023 8:37 AM EDT HEMOGRAM Routine 10/29/2023 8:37 AM EDT LACTATE, WHOLE BLOOD Routine 10/29/2023 8:37 AM EDT PHOSPHORUS Routine 10/29/2023 8:37 AM EDT MAGNESIUM Routine 10/29/2023 8:37 AM EDT BASIC METABOLIC PANEL Routine 10/29/2023 8:37 AM EDT CBC (WITH DIFF) Routine 10/29/2023 8:37 AM EDT URINALYSIS MICROSCOPIC EXAM STAT 10/29/2023 2:33 AM EDT URINALYSIS WITH REFLEX CULTURE STAT 10/29/2023 2:33 AM EDT PHOSPHORUS Routine 10/29/2023 2:08 AM EDT SEDIMENTATION RATE Routine 10/29/2023 2: 08 AM EDT CRP, ACUTE INFLAMMATION Routine 10/29/2023 2:08 AM EDT MAGNESIUM Routine 10/29/2023 2:[address] LUMBAR SPINE WITH CONTRAST STAT 10/28/2023 9:50 PM EDT DIFFERENTIAL, AUTOMATED STAT 10/28/2023 9:00 PM EDT HEMOGRAM STAT 10/28/2023 9:00 PM EDT CRP, ACUTE INFLAMMATION STAT 10/28/2023 9:00 PM EDT SEDIMENTATION RATE STAT 10/28/2023 9: 00 PM EDT BASIC METABOLIC PANEL STAT 10/28/2023 9:00 PM EDT CBC (WITH DIFF) STAT 10/28/2023 9:00 PM EDT LAB SCAN 10/28/2023 12:00 AM EDT COMPREHENSIVE METABOLIC PANEL Routine 09/24/2023 11:03 AM EDT Spinal abscess CRP, ACUTE INFLAMMATION Routine 09/24/2023 11:03 AM EDT Spinal abscess from Last 3 Months Results * IR Drain Check/Change/Remove (12/03/2023 3:21 [...] the entire procedure. ?? Andrade Melvin MD [place] IR ORDERABLES * Scan Doc: Lab (11/25/2023 12:00 AM EDT) Only the most recent of9 resultswithin the time period is included. Narrative 11/25/2023 12:00 AM EDT Ordered by an unspecified provider. Scanning Provider MEDIA MGR SCAN EXT O RDR/RSLT * Place PICC Line: Contact Vascular Access Page [phone] Extremity to exclude: No restrictions; Is PICC [...] to the planned procedure. Hand Hygiene: The chimney sweeper did perform hand hygiene prior to line insertion. Catheter type: PICC Lot number: [id number] Procedure Technique: Skin was prepped with chlorhexidine. [...] Team) (11/03/2023 11:19 AM EDT) WORKSTATION ID [id number] RAD Anatomical Region Laterality Modality N/A Radio [...] have questions please contact the health care program director that requested your imaging first. ? Electronically signed by: Deb Avery MD, [facility] ??([phone]), at 11/03/2023 11:55 AM Narrative 11/03/2023 11:55 [...] who have questions please contactthe health care program director that requested your imaging first. Electronically signed by: Deb Avery MD, [facility]([phone]), at 11/03/2023 11:55 AM Isaiah Samayoa MD [...] resultswithin the time period is included. Pathologist [facility] C-Reactive Protein 62.8(H) <=4.9 mg/L [facility] Blood 11/02/2023 5:26 AM EDT 11/02/2023 5:44 AM EDT Narrative Resulting Agency Comment Spec In Lab Isaiah Samayoa MD CHEMISTRY ORDERABLES [facility] [place] [address] * (ABNORMAL) Hemogram (11/02/2023 5:26 AM EDT) Only the most recent of5 resultswithin the time period is included. Pathologist [facility] White Blood Cell 7.5 4.0 - 9.5 x10(3)/mc L [facility] Red Blood Cell 3.89(L) 4.00 - 5.21 x10(6)/[facility] LABORATORY Hemoglobin 11.1(L) 11.7 - 15.5 g/dL [facility] Hematocrit 33.8(L) 35.7 - 45.8 % [facility] Mean Cell Volume 86.9 82.6 - 94.4 fL [facility] Mean Cell Hemoglobin 28.5 27.1 - 32.0 pg [facility] Mean Cell Hemoglobin Concentration 32.8 31.7 - 35.0 g/dL [facility] Platelet 477(H) 145 - 357 x10(3)/[facility] LABORATORY RDW Standard Deviation 45.1 37.0 - 46.0 [facility]ORATORY RDW coefficient of variation 14.3(H) 11.5 - 14.1 % [facility] Mean Platelet Volume 9.1 7.6 - 12.9 [facility] LABORATORY NRBC% auto 0.0 % [facility] NRBC Absolute 0.000 0.000 - 0.000 x10(3)/[facility] Blood 11/02/2023 5:26 AM EDT 11/02/2023 5:43 AM EDT Narrative Resulting Agency Comment Spec In Lab Isaiah Samayoa MD HEMATOLOGY ORDERABLE S [facility] [place] [address] * Differential, Automated (11/02/2023 5:26 AM EDT) Only the most recent of5 resultswithin the time period is included. Neutrophil % 69.0 % [facility] Neutrophil Absolute 5.16 1.70 - 6.10 x10(3)/[facility] LABORATORY Lymph % 21.7 % [facility] Lymphocytes Abs 1.6 0.9 - 3.2 x10(3)/[facility]OR[facility]ORY Monocyte % 6.8 % [facility] Monocyte Abs 0.5 0.3 - 0.9 x10(3)/[facility] LABORATORY Eos % 1.6 % [facility] Eosinophils Abs 0.1 0.0 - 0.4 x10(3)/[facility]OR[facility]ORY Basophil % 0.5 % [facility] Baso Absolute 0.0 0.0 - 0.1 x10(3)/[facility] LABORATORY Immature Gran % 0.40 % [facility] Comment: Immature granulocytes(IG's)percentage and absolute count will include metamyelocytes, myelocytes, and promyelocytes. Blood smears from CBCs yielding IG's will be scanned manually for concordance. If this scan disagrees with the automated IG or if promyelocytes are noted, a manual differential will be performed. Immature Gran Absolute 0.03 0.00 - 0.04 x10(3)/[facility] Blood 11/02/2023 5:26 AM EDT 11/02/2023 5:43 AM EDT Narrative Resulting Agency Comment Spec In Lab Isaiah Samayoa MD HEMATOLOGY ORDERABLE S Performing Organization Address City/[facility]/[place] [address] * CK (11/02/2023 5:26 AM EDT) Only the most recent of2 resultswithin the time period is included. Creatine Kinase 14 0 - 160 unit/L [facility] Blood 11/02/2023 5:26 AM EDT 11/02/2023 5:44 AM EDT Narrative Resulting Agency Comment Spec In Lab Isaiah Samayoa MD CHEMISTRY ORDERABLES Performing Organization Address City/[facility]/ZIP Co de Phone Number [facility] [place] [address] * (ABNORMAL) Comprehensive metabolic panel (non-fasting) (11/02/2023 5:26 AM EDT) Only the most recent of2 resultswithin the time period is included. Glucose 109 65 - 199 mg/dL [facility] Comment:Diabetes: >=200 mg/d L plus symptoms Blood Urea Nitrogen 13 8 - 18 mg/dL [facility] Comment:result rechecked-mg Creatinine 0.27(L) 0.70 - 1.20 mg/dL [facility] Sodium 138 135 - 145 mmol/L [facility] Potassium 3.9 3.5 - 5.0 mmol/L [facility] Comment: Please note: ??Patients with WBC >100,000 may have falsely elevated Potassium levels. ??For accurate Potassium quantification in these patients send serum separator tube (gold top) for subsequent determinations. ??Contact the Clinical Chemistry Laboratory if there are any questions. Chloride 104 98 - 107 mmol/L [facility] Carbon Dioxide 21(L) 22 - 31 mmol/L [facility] Anion Gap 13 5 - 15 mmol/L [facility] Calcium 9.8 8.5 - 10.5 mg/dL [facility] Protein, Total 7.2 6.1 - 8.0 g/dL [facility] Albumin 3.5 3.2 - 5.2 g/dL [facility] Aspartate Aminotransferase 13 0 - 30 unit/L [facility] Alanine Aminotransferase 27 0 - 30 unit/L [facility] Alkaline Phosphatase 209(H) 35 - 105 unit/L [facility] Bilirubin, Total <0.2(L) 0.2 - 1.3 mg/dL [facility] Est Glomerular Filtration Rate 150 >=60 mL/min/1. 73 m?? [facility] [...] In Lab Isaiah Samayoa MD CHEMISTRY ORDERABLES [facility] [place] [address] * XR Abdomen 1 view (Generic) (11/01/2023 10:14 PM EDT) WORKSTATION ID [id number] RAD Anatomical Region Laterality Modality Abdomen N/A [...] have questions please contact the health care program director that requested your imaging first. ? Electronically signed by: Marisela Estrella MD, [facility] ([phone]), at 11/02/2023 8:47 AM Narrative 11/02/2023 8:47 [...] who have questions please contactthe health care program director that requested your imaging first. Electronically signed by: Marisela Estrella MD, [facility]([phone]), at 11/02/2023 8:47 AM Mindy Da Silva APRN IMG DX ORDERABLES * MRSA PCR Screen ([facility]/CGP/APD/NLH) (10/31/2023 6:10 PM EDT) [facility] MRSA PCR Negative Negative [facility] MRSA (Interp) Methicillin-resist ant Staphylococcus aureus (MRSA) is NOT DETECTED The MRSA target DNA sequences (mec and SCC) were not detected within the acceptable ranges using the Xpert MRSA NxG on the GeneXpert Dx System (MD-IT). This suggests the absence of MRSA in the patient specimen submitted for testing. This test is cleared by the U.S. Food and Drug Administration for clinical use and its performance characteristics have been verified by the [facility] at [facility]. This result does not rule out the presence of any other organisms. Rare false negative results may occur if MRSA is present at low concentrations with much higher concentrations of other organisms including MRSE or S. aureus with an empty SCC cassette. [facility] Comment: [VERIFIED DATE]11.01.23 Verified By:Marisela Jolly (Electronic Signature) Nasopharyngeal Swab 10/31/19 6:10 PM EDT 11/01/2023 8:24 AM EDT Comment:Specimen Type->Nasop haryngeal Swab Narrative Resulting Agency Comment Spec In Lab Isaiah Samayoa MD MOLECULAR ORDERABLES [facility] [place] [address] * (ABNORMAL) Sedimentation rate (10/31/2023 4:47 AM EDT) Only the most recent of4 resultswithin the time period is included. Sedimentation Rate Automated 113(H) 2 - 37 mm/hr [facility] Comment: Effective April 06, 2019 new capillary photometric technology has resulted in a change in reference ranges. It is recommended that each ESR result be reviewed with its own age appropriate reference range. Blood 10/31/2023 4:47 AM EDT 10/31/2023 4:55 AM EDT Narrative Resulting Agency Comment Spec In Lab Sharron Winters MD HEMATOLOGY ORDERABLE S Performing Organization Address City/[facility]/ZIP Co de Phone Number [facility] [place] [address] * Magnesium (10/31/2023 4:47 AM EDT) Only the most recent of4 resultswithin the time period is included. Magnesium 0.86 0.69 - 1.07 mmol/L [facility] Blood 10/31/2023 4:47 AM EDT 10/31/2023 4:55 AM EDT Narrative Resulting Agency Comment Spec In Lab Sharron Winters MD CHEMISTRY ORDERABLES [facility] [place] [address] * (ABNORMAL) Basic Metabolic Panel (non-fasting) (10/31/2023 4:47 AM EDT) Only the most recent of4 resultswithin the time period is included. Glucose 120 65 - 199 mg/dL [facility] Comment:Diabetes: >=200 mg/d L plus symptoms Blood Urea Nitrogen 8 8 - 18 mg/dL [facility] Creatinine 0.27(L) 0.70 - 1.20 mg/dL [facility] Sodium 140 135 - 145 mmol/L [facility] Potassium 3.8 3.5 - 5.0 mmol/L [facility] Comment: Please note: ??Patients with WBC >100,000 may have falsely elevated Potassium levels. ??For accurate Potassium quantification in these patients send serum separator tube (gold top) for subsequent determinations. ??Contact the Clinical Chemistry Laboratory if there are any questions. Chloride 106 98 - 107 mmol/L [facility] Carbon Dioxide 23 22 - 31 mmol/L [facility] Anion Gap 11 5 - 15 mmol/L [facility] Calcium 9.2 8.5 - 10.5 mg/dL [facility] Est Glomerular Filtration Rate 150 >=60 mL/min/1. 73 m?? [facility] [...] Winters MD CHEMISTRY ORDERABLES Performing Organization Address City/State/[facility] Co de Phone Number [facility] [place] [address] * IR All Drainage Procedures (10/30/2023 3:23 PM EDT) Anatomical Region Laterality Modality X-Ray Angiograph y Narrative 10/30/2023 3:27 PM EDT Table formatting from the original result was not included. Images from the original result were not included. IR PROCEDURE NOTE Procedure: Paraspinal drain placement. Indication for Procedure: Per Tana Olivera Cavazos is a 28 y.o. female w/ [...] performed this procedure. ? Sharron Winters MD [place] IR ORDERABLES * Anaerobic Culture (10/30/2023 3:02 PM EDT) Anaerobic Culture No anaerobic organisms isolated [facility] Fluid 10/30/2023 3:02 PM EDT 10/30/2023 3:47 PM EDT Comment:Infected seroma/absc ess lower mid posterior presacral region. Fluid culture. Narrative Resulting Agency Comment Spec In Lab Andrade Melvin MD MICROBIOLOGY - GENER AL ORDERABLES [facility] [place] [address] * Body Fluid Culture, Aerobic (10/30/2023 3:02 PM EDT) Body Fluid Culture Rare mixed bacterial morphotypes suggestive of normal cutaneous zenon [facility] Gram Stain Many Neutrophils seen No microorganisms seen. [facility] Fluid 10/30/2023 3:02 PM EDT 10/30/2023 3:47 PM EDT Comment:Infected seroma/absc ess lower mid posterior presacral region. Fluid culture. Narrative Resulting Agency Comment Spec In Lab Andrade Melvin MD MICROBIOLOGY - GENER AL ORDERABLES [facility] [place] [id number] * POCT urine (10/29/2023 10:26 AM EDT) POC Urine HCG Negative POC Control Internal Controls Acceptable 10/29/2023 10:2 6 AM EDT Sharron Winters MD POINT OF CARE TEST O RDERABLES * Lactate, whole blood, send to lab ([facility]) (10/29/2023 8:37 AM EDT) Pathologist [facility] Lactate WB 1.8 0.5 - 2.2 mmol/L [facility] Blood 10/29/2023 8:37 AM EDT 10/29/2023 8:47 AM EDT Narrative Resulting Agency Comment Spec In Lab Brennan Maldonado MD CHEMISTRY ORDERABLE S [facility] [place] [address] * Phosphorus (10/29/2023 8:37 AM EDT) Only the most recent of2 resultswithin the time period is included. Phosphorus 3.6 2.5 - 4.5 mg/dL [facility] Blood 10/29/2023 8:37 AM EDT 10/29/2023 8:47 AM EDT Narrative Resulting Agency Comment Spec In Lab Brennan Maldonado MD CHEMISTRY ORDERABLE S Performing Organization Address [facility] Co de Phone Number [facility] [place] [address] * (ABNORMAL) Urinalysis Microscopic Exam (10/29/2023 2:33 AM EDT) RBC, Urine >100(H) 0 - 4 /HPF [facility] WBC, Urine 4 0 - 5 /HPF [facility] Squamous Epithelial Cells Raw Data, Urine 4 <=4 /HPF [facility] Hyaline Casts, Urine <1 0 - 2 /LPF [facility] Comment: Interpret results with caution, microscopic results are from suboptimal specimen volume Straight Catheter Urine 10/29/2023 2:33 AM EDT 10/29/2023 2:43 AM EDT Narrative Resulting Agency Comment Spec In Lab Sharron Winters MD URINE ORDERABLES Performing Organization Address [facility] Co de Phone Number [facility] [place] [address] * (ABNORMAL) Urinalysis with reflex Culture (10/29/2023 2:33 AM EDT) Glucose, Urine Dipstick Negative Negative mg/dL [facility] Protein, Urine Dipstick 30(A) Negative mg/dL [facility] Bilirubin, Urine Dipstick Negative Negative mg/dL [facility] Comment: Clinical correlation required for positive Urine Bilirubin results as false positive may occur with some drugs and drug related products. If a false positive is suspected a serum total bilirubin should be considered if clinically indicated. Urobilinogen, Urine Dipstick Normal Normal mg/dL [facility] pH, Urn (dipstick) 6.5 5.0 - 8.0 [facility] Blood, Urine Dipstick Large(A) Negative mg/dL [facility] Ketone, Urine Dipstick Negative Negative mg/dL [facility] Nitrite, Urine Dipstick Negative Negative [facility] Leukocytes, Urine Dipstick Negative Negative [facility] Appearance, Urine Dipstick Clear Clear [facility] Specific [place] Urine Automated >=1.030(A) 1.005 - 1.030 [facility] Color, Urine Dipstick Yellow Yellow [facility] Reflex to Culture No [facility] Straight Catheter Urine 10/29/2023 2:33 AM EDT 10/29/2023 2:43 AM EDT Narrative Resulting Agency Comment Spec In Lab Sharron Winters MD URINE ORDERABLES Performing Organization Address City/State/[facility] Co de Phone Number [facility] [place] [address] * CT Lumbar Spine w Contrast (10/28/2023 9:50 PM EDT) OVIA WORKSTATION ID [id number] DH RAD Anatomical Region Laterality Modality L-spine Computed [...] have questions please contact the health care program director that requested your imaging first. ? Electronically signed by: Enid Vargas MD, [facility] ([phone]), at 10/28/2023 10:17 PM Narrative 10/28/2023 10:17 [...] who have questions please contactthe health care program director that requested your imaging first. Electronically signed by: Endi Vargas MD, [facility]([phone]), at 10/28/2023 10:17 PM Siomara Hernandez MD IMG CT ORDERABLES from Last 3 Months Advance Directives Documents on File Type Date Recorded Patient Repair Specialist Expl anation Personal Repair Specialist 04/29/2023 4:18 PM has new guardian Personal Repair Specialist 04/29/2023 2:04 PM has new guardian Guardianship document 06/15/2018 11:23 AM Guardianship document 10/28/2023 7:54 PM Am dean Brown Effective 09/17/23-missing rights and responsibilities * Attempt Cardiopulmonary Resuscitation - Inpatient (Latest Code Status on File) Date Activated Date Inactivated Comments 12/03/2023 2:05 PM 12/04/2023 4:35 AM Question Answer Comments Code Status decision made by: Patient Content of discussion: cpr and intubation * Attempt Cardiopulmonary Resuscitation - Inpatient Date Activated Date Inactivated Comments 10/30/2023 1:55 [...] Status decision made by: Patient Care Teams Sister Superior Relationship Specialty Start Date End Date Lorna Bal APRN [address] [place] [address] PCP - General Family Medicine 05/27/18
--- OUTSIDE RECORDS SUMMARY | 2023-12-04 12:35 | XMS_ITS | Encounter Summary ---
Author Organization [facility] [place] [address] Care Team Providers Care Pst Specialist Name Role Phone Lorna Bal APRN Primary Care Provider +1 -[phone] Encounter Details Date Type Department Care Team (Late st Contact Info) Description 06/16/2023 [place] [phone] Martha Kennedy Social History Tobacco Use Types [...] PM EST Office [place] [address] Hollie Ambriz MD [facility] [place] [address] documented as of this encounter Visit Diagnoses Not on filedocumented in this encounter Care Teams Pst Specialist Relationship Specialty Start Date End Date Lorna Bal APRN [address] [place] [address] PCP - General Family Medicine 05/27/18 documented as of this encounter
--- OUTSIDE RECORDS SUMMARY | 2023-12-04 12:35 | XMS_ITS | Encounter Summary ---
Author Organization [facility] [place] [address] Care Team Providers Care Residential Field Manager Name Role Phone Lorna Bal APRN Primary Care Provider +1 -[phone] Encounter Details Date Type Department Care Team (Late st Contact Info) Description 06/17/2023 Telephone [place] [phone] Tobi Luna Social History Tobacco Use Types Packs/Day Years Used Date Smoking Tobacco: Never Smokeless Tobacco: Never Comments:NO SMOKERS IN THE H OME Alcohol Use Standard Drinks/Week Comments No 0 (1 standard drink = 0.6 oz pur e alcohol) [facility] Inpatient Questions Answer Date Recorded Does [...] - 06/17/2023 10:02 AM EST Tana Cavazos [id number] Diagnosis/Indication: Chronic constipation and anemia Please review [...] hip issues You must have a responsible constitution party who will drive you to your procedure, stay on campus for the entire duration of your procedure, and drive you home from your procedure. Who will likely be your subway train driver for the procedure? *Please Verify the [...] PM EST Office [place] [address] Hollie Ambriz MD [facility] [place] [address] documented as of this encounter Visit Diagnoses Not on filedocumented in this encounter Care Teams Residential Field Manager Relationship Specialty Start Date End Date Lorna Bal APRN [address] [place] [address] PCP - General Family Medicine 05/27/18 documented as of this encounter
--- OUTSIDE RECORDS SUMMARY | 2023-12-04 12:35 | XMS_ITS | Encounter Summary ---
Author Organization [facility] Address [facility] [address] Care Team Providers Care Operations Technician Name Role Phone Lorna Bal APRN Primary Care Provider +1 -[phone] Reason for Visit * Reason Onset Date Comments Medication Refill 08/11/2023 Encounter Details Date Type Department Care Team (Late st Contact Info) Description 08/11/2023 Refill [place] [address] Hollie Ambriz MD [facility] [place] [address] Social History Tobacco Use Types Packs/Day Years Used Date Smoking Tobacco: Never Smokeless Tobacco: Never Comments:NO SMOKERS IN THE H OME Alcohol Use Standard Drinks/Week Comments No 0 (1 standard drink = 0.6 oz pur e alcohol) [facility] Inpatient Questions Answer Date Recorded Does [...] PM EST Office Visit [place] [address] Hollie Ambriz MD [facility] [place] [address] documented as of this encounter Visit Diagnoses Not on filedocumented in this encounter Care Teams Operations Technician Relationship Specialty Start Date End Date Lorna Bal APRN [address] [place] [address] PCP - General Family Medicine 05/27/18 documented as of this encounter
--- OUTSIDE RECORDS SUMMARY | 2023-12-04 12:35 | XMS_ITS | Encounter Summary ---
Author Organization [facility] Address [facility] [place] [address] Care Team Providers Care Ranch Helper Name Role Phone Lorna Bal APRN Primary Care Provider +1 [phone] Encounter Details Date Type Department Care Team (Late st Contact Info) Description 10/28/2023 Telephone [place] [address] Neva Thorpe, RN Social History Tobacco Use Types Packs/Day Years Used Date Smoking Tobacco: Never Passive Smoke Exposure: Never Smokeless Tobacco: Never Comments:NO SMOKERS IN THE H OME Alcohol Use Standard Drinks/Week Comments No 0 (1 standard drink = 0.6 oz pur e alcohol) [facility] Utilities Answer Date Recorded In the past 12 months has e [employer], gas, oil, or water [employer] threatened to shut off services in your [...] any time in the past 12 m [facility], were you homeless or living in [...] PM EST Office [place] [address] Hollie Ambriz MD [facility] [place] [address] documented as of this encounter Visit Diagnoses Not on filedocumented in this encounter Care Teams Ranch Helper Relationship Specialty Start Date End Date Lorna Bal APRN [address] [place] [address] PCP - General Family Medicine 05/27/18 documented as of this encounter
--- OUTSIDE RECORDS SUMMARY | 2023-12-04 12:35 | XMS_ITS | Encounter Summary ---
Author Organization [facility] [place] [address] Care Team Providers Care Gas Flow Regulator Name Role Phone Lorna Bal APRN Primary Care Provider +1 -[phone] Encounter Details Date Type Department Care Team (Late st Contact Info) Description 06/12/2023 Telephone [place] [phone] Tobi Luna Social History Tobacco Use Types [...] PM EST Office [place] [address] Hollie Ambriz MD [facility] [place] [address] documented as of this encounter Visit Diagnoses Not on filedocumented in this encounter Care Teams Gas Flow Regulator Relationship Specialty Start Date End Date Lorna Bal APRN [address] [place] [address] PCP - General Family Medicine 05/27/18 documented as of this encounter
--- OUTSIDE RECORDS SUMMARY | 2023-12-04 12:35 | XMS_ITS | Encounter Summary ---
Author Organization [facility] Address [facility] [place] [address] Care Team Providers Care Telephone Station Repairer Name Role Phone Lorna Bal APRN Primary Care Provider +1 -[phone] Encounter Details Date Type Department Care Team (Late st Contact Info) Description 08/05/2023 10:15 AM EDT - 08/05/2023 11:00 AM EDT [place] [address] Jamar Gastelum MD [facility] [place] [address] COLONOSCOPY FLEXIBLE, WITH BX (WRVU 3.56) Social [...] occurs, please contact your Doctor. Please call [phone] before 8pm Mon-Fri with problems, questions or concerns. If you call after 8pm or on weekends, call the Hospital at [phone] and ask to speak to the Proof Press Operator division field inspector and the box lining machine operator will contact that person for you. When should you call for help? Call [phone] anytime you think you may need emergency [...] any problems. Where can you learn more? [facility] View your After Visit Summary and more online at [email or web address] If you would like to provide feedback about your hospital experience, please call the Office of Patient and Family Relations at . If you have received this After Visit Summary in error, please immediately return it in person to the department, or notify the [facility] Privacy Office by calling toll free at between the hours of 8AM and 5PM to arrange for our retrieval of the documents at no cost to you. Content Version: 12.2 ?? [id number] [employer]. Care instructions adapted under license by [facility]. If you have questions about a medical condition or this instruction, always ask your healthcare professional. [employer] disclaims any warranty or liability for your use of this information. * Patient Instructions* Jamar aGstelum MD - 08/05/2023 10:58 AM EDT Please [...] tablet Take 2 tablets by mouth nightly. sulfamethoxazole-trimet hoprim (Bactrim) 400-80 mg tablet Take 1 tablet by mouth 2 times daily. 08/11/2023 ergocalciferoL, vitamin D2, (vitamin D2) 50,000 unit capsule Take 50,000 Units by mouth once a week. 01/15/2023 12/03/2023 nystatin (MYCOSTATIN) 100,000 unit/gram Powder Apply 1 each topically 2 times daily. 06/02/2022 10/29/2023 baclofen (Lioresal) 10 mg tablet Take 10 mg by mouth 3 times daily. 12/03/2023 documented as of this encounter H&P Notes [...] Gastelum MD - 08/05/2023 10:35 AM EDT [facility] Operative Note Patient Name: Tana Cavazos : [id number] MR#: [id number] Case Date: 08/05/2023 Surgeon: Surgeon(s) and Role: [...] PM EST Office [place] [address] Hollie Ambriz MD [facility] [address] [place] [address] documented as of this encounter Procedures Procedure Name Priority Date/Time Associated Diagnosis Comments SPECIMEN TO PATHOLOGY Routine 08/05/2023 11:01 AM EDT SURGICAL PATHOLOGY REPORT Routine 08/05/2023 11:00 AM EDT Colonoscopy, Biopsy ([id number]) 08/05/2023 10:27 AM EDT Constipation, unspecified constipation type COLONOSCOPY Routine 08/05/2023 9:59 AM EDT documented in this encounter Results * Specimen to Pathology (08/05/2023 11:01 AM EDT) AP Specimen 08/05/2023 11:0 1 AM EDT 08/05/2023 11:01 AM EDT Narrative [facility] - 08/05/2023 11:01 AM EDT Specimen requisition ordered. ??Separate Pathology report to follow Jamar Hair MD PATHOLOGY/CYTOLO GY ORDERABLES [facility] [place] [address] * Surgical Pathology Report (08/05/2023 11:00 AM EDT) Final Diagnosis [id number] ? Location: 4T; EA11; A The signing pathologist has (i) examined the relevant preparation(s) for the specimen(s) and (ii) rendered or confirmed the diagnosis(es). . ?Surgical Pathology DIAGNOSIS A - Rectum r/o microscopic colitis, biopsy (Multiple): - ??Colonic mucosa within normal limits. CR-PX Electronically signed by: ?Jazmyne GIRALDO PhD, Courtney Verified: ??08/17/2023 16:08 ??Pathologist Performed at: ??-[facility] Dept. of Pathology, [place] [address] Environmental Auditor: Frank Turpin MD, FCAP, ??CLIA Certificate: [id number] SPECIMEN(S) SUBMITTED A - rectum r/o microscopic colitis, biopsy (Multiple) CLINICAL INFORMATION 28-year-old female with chronic constipation SPECIMEN PROCESSING A - Labeled/Fixative : Rectum rule out microscopic colitis, formalin. Quantity/Size: Multiple, averaging 0.3 cm. Tissue Description: Soft, red tissues. Sections/Process ing: Submitted in toto ??in 2 cassettes labeled A1-A2. ??sns 08/17/2023 4:08 PM EDT [facility] GI Biopsy 08/05/2023 11:0 0 AM EDT 08/05/2023 11:00 AM EDT Jamar Hair MD PATHOLOGY/CYTOLO GY ORDERABLES [facility] [place] [address] * COLONOSCOPY (08/05/2023 9:59 AM EDT) COLONOSCOPY [facility] Endoscopy ___ Procedure Date: 08/05/2023 9:59 AM ? Patient Name: Tana Cavazos ? Date of : 1995 ? Age: 28 ? Order #: [id number] ? Instrument Name: [id number]- [id number] ? ___ Procedure: ? Colonoscopy Indications: ? [...] Active and Recently Administered Medications Care Teams Telephone Station Repairer Relationship Specialty Start Date End Date Lorna Bal APRN [address] [place] [address] PCP - General Family Medicine 05/27/18 documented as of this encounter
--- OUTSIDE RECORDS SUMMARY | 2023-12-04 12:35 | XMS_ITS | Encounter Summary ---
Author Organization [facility] Address [facility] [place] [address] Care Team Providers Care Supervisor Sawing And Assembly Name Role Phone Lorna Bal APRN Primary Care Provider +1 [phone] Encounter Details Date Type Department Care Team (Late st Contact Info) Description 08/05/2023 10:24 AM EDT Anesthesia [place] [address] Christopher Johansen MD [facility] [place] [address] Buster Brooke Anesthesia Record Procedure Summary Procedure [...] 1042; metacarpal vein (top of hand), right; tytk-tpt-aiwfqk catheter system; 22 gauge; distraction, intradermal injection, tolerated well; LDA not present upon assessment; 10/29/23; 0840 09/26/22 1042 by Ramiro Aden LPN 10/29/23 0840 by Hank Christian RN Incision 09/26/22; 1328; Righ t; gluteal; non-laparascopic puncture; Aspiration site (Gregory, DO); LDA not present upon assessment; 10/29/23 09/26/22 1328 by Nathalie Hernández RN 10/29/23 0000 by Jaye Murry RN PIV 08/05/23; 1015; fgjy-ahv-ebwkax catheter system; 22 gauge; great saphenous vein [...] Procedure Summary Date: 08/05/23 Room / Location: [facility] ENDO 5 / [facility] ENDOSCOPY Anesthesia Start: 1024 Anesthesia Stop: 110 Procedure: COLONOSCOPY FLEXIBLE, WITH BX (WRVU 3.56) (Trunk) Diagnosis: Constipation, unspecified constipation type (Colonoscopy- Chronic constipation and anemia) Surgeons: Jamar Gastelum MD Responsible Provider: Christopher Johansen MD Anesthesia Type: MAC ASA Status: 3 All Anesthesia Providers: Anesthesiologist: Christopher Johansen MD Student Nurse Petrologist: Buster Brooke Vitals Value Taken Time BP 119/81 08/05/23 1125 Temp Pulse Resp 16 08/05/23 1125 SpO2 99 % 08/05/23 1127 Pain Level 0 08/05/23 1125 Vitals shown include unfiled device data. Patient Location: PACU/[facility] Level of Consciousness: Awake and Alert Pain [...] a 28 y.o. female. Procedure(s): [facility] Patient Active Problem List Diagnosis [...] All Drainage Procedures 06/25/2022 Mich Martino MD [facility] RAD ??? IR ALL DRAINAGE PROCEDURES 07/04/2022 IR All Drainage Procedures 07/04/2022 Mich Martino MD [facility]ION[facility] RAD ??? IR ALL DRAINAGE PROCEDURES 07/24/2022 IR All Drainage Procedures 07/24/2022 Anurag Kumar MD [facility] RAD ??? IR ALL DRAINAGE PROCEDURES 09/26/2022 IR All Drainage Procedures 09/26/2022 Jamaal Jenkins, DO [facility] RAD ??? IR DRAIN CHECK/CHANGE/REMOVE 07/01/2022 IR Drain Check/Change/Remove 07/01/2022 Jamaal Jenkins, DO [facility] RAD ??? IR DRAIN CHECK/CHANGE/REMOVE 08/11/2022 IR Drain Check/Change/Remove 08/11/2022 Piter Self MD [facility] RAD ??? IR DRAIN CHECK/CHANGE/REMOVE 08/25/2022 IR Drain Check/Change/Remove 08/25/2022 Jamaal Jenkins, DO [facility] RAD ??? IR DRAIN CHECK/CHANGE/REMOVE 09/10/2022 IR Drain Check/Change/Remove 09/10/2022 Mich Martino MD [facility] RAD ??? PRO APPLY OF HIP CASTS, TWO LEGS 08/15/2010 CAST APPLICATION, HIP SPICA, BOTH LEGS performed by BARRERA OLIVER at [facility] OR ? ? PRO I&D, POST SPINE, LUMB/SACR/LUMBOSAC N/A 05/20/2014 @I & D, OPEN, DEEP ABSCESS, LUMBAR, SACRAL, LUMBOSACRAL performed by Freddy Isbell MD at [facility] OR ? ? PRO I&D, POST SPINE, LUMB/SACR/LUMBOSAC N/A 05/26/2014 @I & D, OPEN, DEEP ABSCESS, LUMBAR, SACRAL, LUMBOSACRAL performed by Freddy Isbell MD at [facility] OR ??? PRO IMPACT TOOTH REMOV COMP BONY N/A 06/14/2018 SURGICAL EXTRACTIONS, REMOVAL OF IMPACTED TOOTH, COMPLETELY BONY (WRVU 1.93) performed by Keith Cotton MD at [facility] OSC ??? PRO OSTEOTOMY FEMUR SHAFT/SUPRACONDY 08/15/2010 ??OSTEOTOMY, FEMUR SHAFT OR SUPRACONDYLAR W/O FIXATION performed by BARRERA OLIVER at [facility] MAIN OR ??? PRO RECONSTRUC HIP SOCKET, RESEC FEM HEAD 08/15/2010 ??ACETABULOPLASTY (GIRDLESTONE), RESECTION FEMORAL HEAD, BILATERAL performed by BARRERA OLIVER [facility] MAIN OR ??? PRO REMOVAL DEEP IMPLANT 08/15/2010 REMOVAL IMPLANT, DEEP, BRUNO performed by BARRERA OLIVER at [facility] MAIN OR ??? PRO REMOVAL ERUPTED TOOTH [...] [facility] Social History Tobacco Use ??? Smoking status: Never ??? Smokeless tobacco: Never ??? Tobacco comments: NO SMOKERS IN THE HOME Substance Use Topics ??? Alcohol use: No Social History Substance and Sexual Activity Drug Use No Allergies Allergen Reactions ??? Fluoxetine Other (See Comments) HIVES, HEART RACES ??? Tegaderm [Transparent Dressings] Itching and Dermatitis Please use [id number] ??? Cyclobenzaprine Other Reaction(s): Not available ??? [...] risks discussed with patient. Plan discussed with COMMUNITY SERVICE MANAGER. Anesthesia Screening documented in this encounter Plan of Treatment Upcoming Encounters Date Type Department Care Team (Late st Contact Info) Description 06/02/2024 12:30 PM EST Office Visit [place] [address] Hollie Ambriz MD [facility] [place] [address] documented as of this encounter Visit Diagnoses [...] mg documented in this encounter Care Teams Supervisor Sawing And Assembly Relationship Specialty Start Date End Date Lorna Bal, [place] [address] [place] [address] PCP - General Family Medicine 05/27/18 documented as of this encounter
--- OUTSIDE RECORDS SUMMARY | 2023-12-04 12:35 | XMS_ITS | Encounter Summary ---
[place] [address] Care Team Providers Care Mathematician Research Name Role Phone Lorna Bal APRN Primary Care Provider +1 -[phone] Reason for Visit * Occupational Therapy (Routine) - Closed Specialty Diagnoses / Procedures Referred By Karlo t Referred To Contact Occupational Therapy Diagnoses Chronic pain of right thumb Lucho Foster MD [facility] [place] [address] [facility] [place] [address] Referral ID Status Reason Start Date Expiration Date V isits Requested Visits Authorized [id number] Closed Consult Only 09/29/2023 09/28/2024 30 30 Encounter Details Date Type Department Care Team (Latest Contact Info) Description 09/29/2023 10:00 AM EDT Office [place] [address] Gaby Lake OT Spastic quadriparesis [...] with demonstration in therapy. 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
--- OUTSIDE RECORDS SUMMARY | 2023-12-04 12:35 | XMS_ITS | Encounter Summary ---
Author Organization [facility] Address [facility] [place] [address] Care Team Providers Care Qa Specialist Name Role Phone Lorna Bal APRN Primary Care Provider +1 -[phone] Encounter Details Date Type Department Care Team (Late st Contact Info) Description 10/28/2023 Telephone [place] [address] Neva Thorpe, RN Social History Tobacco Use Types Packs/Day Years Used Date Smoking Tobacco: Never Passive Smoke Exposure: Never Smokeless Tobacco: Never Comments:NO SMOKERS IN THE H OME Alcohol Use Standard Drinks/Week Comments No 0 (1 standard drink = 0.6 oz pur e alcohol) [facility] Utilities Answer Date Recorded In the past 12 months has e [employer], gas, oil, or water [employer] threatened to shut off services in your [...] any time in the past 12 m [facility], were you homeless or living in [...] PM EST Office [place] [address] Hollie Ambriz MD [facility] [place] [address] documented as of this encounter Visit Diagnoses Not on filedocumented in this encounter Care Teams Qa Specialist Relationship Specialty Start Date End Date Lorna Bal APRN [address] [place] [address] PCP - General Family Medicine 05/27/18 documented as of this encounter
--- OUTSIDE RECORDS SUMMARY | 2023-12-04 12:35 | XMS_ITS | Encounter Summary ---
Author Organization [facility] Address [facility] [place] [address] Care Team Providers Care Communications Operator Name Role Phone Lorna Bal APRN Primary Care Provider +1 -[phone] Encounter Details Date Type Department Care Team (Late st Contact Info) Description 09/24/2023 10:00 AM EDT Office [place] [address] [facility] [place] [address] Spinal abscess; intermediate 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 Social History Tobacco Use Types Packs/Day Years Used Date Smoking Tobacco: Never Smokeless Tobacco: Never Comments:NO SMOKERS IN THE H OME Alcohol Use Standard Drinks/Week Comments No 0 (1 standard drink = 0.6 oz pur e alcohol) [facility] Inpatient Questions Answer Date [...] remained on bactrim. Follow[place] up with in [place]. MRI was not possible sec. To hardware. CRP/ESR was trending upwards. NSG referred her to [facility] for surgery. The patient went to [...] liquefied hematoma or abscess. Neurosurgeon recommended continuing press tender long goods suppressive antibiotics Subjective: [place] is in [place] [...] Tipton MD Infectious Diseases Fellow- [id number] Pager: [phone] 09/23/2023 11:03 AM Plan discussed with Dr. Hollie Ambriz This note was created using InOpen voice recognition software. * Hollie Ambriz MD [...] PM EST Office [place] [address] [facility] [place] [address] documented as of this encounter Procedures Procedure Name Priority Date/Time Associated Diagnosis Comments CRP, ACUTE INFLAMMATION Routine 09/24/2023 11:03 AM EDT Spinal abscess COMPREHENSIVE METABOLIC PANEL Routine 09/24/2023 11:03 AM EDT Spinal abscess documented in this encounter Results * (ABNORMAL) Comprehensive metabolic panel (non-fasting) (09/24/2023 11:03 AM EDT) Glucose 98 65 - 199 mg/dL [facility] Comment:Diabetes: >=200 mg/d L plus symptoms Blood Urea Nitrogen 16 8 - 18 mg/dL [facility] Creatinine 0.27(L) 0.70 - 1.20 mg/dL [facility] Sodium 138 135 - 145 mmol/L [facility] Potassium 3.7 3.5 - 5.0 mmol/L [facility] Comment: Please note: ??Patients with WBC >100,000 may have falsely elevated Potassium levels. ??For accurate Potassium quantification in these patients send serum separator tube (gold top) for subsequent determinations. ??Contact the Clinical Chemistry Laboratory if there are any questions. Chloride 100 98 - 107 mmol/L [facility] Carbon Dioxide 23 22 - 31 mmol/L [facility] Anion Gap 15 5 - 15 mmol/L [facility] Calcium 10.3 8.5 - 10.5 mg/dL [facility] Protein, Total 8.4(H) 6.1 - 8.0 g/dL [facility] Albumin 4.6 3.2 - 5.2 g/dL [facility] Aspartate Aminotransferase 23 0 - 30 unit/L [facility] Alanine Aminotransferase 49(H) 0 - 30 unit/L [facility] Alkaline Phosphatase 302(H) 35 - 105 unit/L [facility] Bilirubin, Total 0.3 0.2 - 1.3 mg/dL [facility] Est Glomerular Filtration Rate 150 >=60 mL/min/1. 73 m?? [facility] Comment: This patient's estimated GFR [...] Tipton MD CHEMISTRY ORDERABLES Performing Organization Address City/[facility]/ZIP Co de Phone Number [facility] [place] [address] * (ABNORMAL) CRP, acute inflammation (09/24/2023 11:03 AM EDT) C-Reactive Protein 42.3(H) <=4.9 mg/L [facility] Blood 09/24/2023 11:0 3 AM EDT 09/24/2023 11:10 AM EDT Narrative Resulting Agency Comment Spec In Lab Ronn Tipton MD CHEMISTRY ORDERABLES [facility] [place] [address] documented in this encounter Visit Diagnoses Diagnosis Spinal abscess Acute osteomyelitis, other specified site long term acute care registered nurse 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 Encounter for long-term (current) use of antibiotics documented in this encounter Care Teams Communications Operator Relationship Specialty Start Date End Date Lorna Bal APRN [address] [place] [address] PCP - General Family Medicine 05/27/18 documented as of this encounter
--- OUTSIDE RECORDS SUMMARY | 2023-12-04 12:35 | XMS_ITS | Encounter Summary ---
Author Organization [facility] Address [facility] [place] [address] Care Team Providers Care Cross Roller Name Role Phone Lorna Bal APRN Primary Care Provider +1 [phone] Encounter Details Date Type Department Care Team (Latest Contact Info) Description 10/28/2023 Travel Social History Tobacco Use Types Packs/Day Years Used Date Smoking Tobacco: Never Passive Smoke Exposure: Never Smokeless Tobacco: Never Comments:NO SMOKERS IN THE H OME Alcohol Use Standard Drinks/Week Comments No 0 (1 standard drink = 0.6 oz pur e alcohol) [facility] Utilities Answer Date Recorded In the past 12 months has e bepretty, gas, oil, or water 3sun threatened to shut off services in your [...] were you homeless or living in a snf (including now)? No 10/29/2023 IPV Inpatient Questions [...] PM EST Office [place] [address] Hollie Ambriz MD [facility] [place] [address] documented as of this encounter Visit Diagnoses Not on filedocumented in this encounter Care Teams Cross Roller Relationship Specialty Start Date End Date Lorna Bal APRN [address] [place] [address] PCP - General Family Medicine 05/27/18 documented as of this encounter
--- OUTSIDE RECORDS SUMMARY | 2023-12-04 12:35 | XMS_ITS | Encounter Summary ---
Author Organization [facility] [address] Care Team Providers Care Youth Program Director Name Role Phone Lorna Bal APRN Primary Care Provider +1 -[phone] Reason for Visit * Consultation (Routine) - Authorized Specialty Diagnoses / Procedures Referred By Karlo duarte Referred To Contact Gastroenterology Diagnoses Constipation, unspecified constipation type constipation Lorna Bal APRN [address] [place] [address] [facility] [place] [address] Referral ID Status Reason Start Date Expiration Date Visits Requested Visits Authorized [id number] Authorized Consult, Test & Treat PCP Updated and/or Approved 01/30/2023 01/30/2024 12 12 Encounter Details Date Type Department Care Team (Latest Contact Info) Description 06/08/2023 9:00 AM EST TH Visit (TeleHealth) [place] [address] Samantha Crystal APRN [facility] [place] [address] Constipation, unspecified constipation type Social [...] stomach discomfort. She is being followed in [place] after hospital stay for a spinal infection. [...] All Drainage Procedures 06/25/2022 Mich Martino MD [facility] INTERVENTIONL RAD IR ALL DRAINAGE PROCEDURES 07/04/2022 IR All Drainage Procedures 07/04/2022 Mich Martino MD [facility] INTERVENTIONL RAD IR ALL DRAINAGE PROCEDURES 07/24/2022 IR All Drainage Procedures 07/24/2022 Anurag Kumar MD [facility] INTERVENTIONL RAD IR ALL DRAINAGE PROCEDURES 09/26/2022 IR All Drainage Procedures 09/26/2022 Jamaal Jenkins, DO [facility] INTERVENTIONL RAD IR DRAIN CHECK/CHANGE/REMOVE 07/01/2022 IR Drain Check/Change/Remove 07/01/2022 Jamaal Jnekins, DO [facility] INTERVENTIONL RAD IR DRAIN CHECK/CHANGE/REMOVE 08/11/2022 IR Drain Check/Change/Remove 08/11/2022 Piter Self MD [facility] INTERVENTIONL RAD IR DRAIN CHECK/CHANGE/REMOVE 08/25/2022 IR Drain Check/Change/Remove 08/25/2022 Jamaal Jenkins, DO [facility] INTERVENTIONL RAD IR DRAIN CHECK/CHANGE/REMOVE 09/10/2022 IR Drain Check/Change/Remove 09/10/2022 Mich Martino MD [facility] INTERVENTIONL RAD PRO APPLY OF HIP CASTS, TWO LEGS 08/15/2010 CAST APPLICATION, HIP SPICA, BOTH LEGS performed by BARRERA OLIVER at [facility] MAIN OR PRO I&D, POST SPINE, LUMB/SACR/LUMBOSAC N/A 05/20/2014 @I & D, OPEN, DEEP ABSCESS, LUMBAR, SACRAL, LUMBOSACRAL performed by Freddy Isbell MD at [facility] MAIN OR PRO I&D, POST SPINE, LUMB/SACR/LUMBOSAC N/A 05/26/2014 @I & D, OPEN, DEEP ABSCESS, LUMBAR, SACRAL, LUMBOSACRAL performed by Freddy Isbell MD at [facility] MAIN OR PRO IMPACT TOOTH REMOV COMP BONY N/A 06/14/2018 SURGICAL EXTRACTIONS, REMOVAL OF IMPACTED TOOTH, COMPLETELY BONY (WRVU 1.93) performed by Keith Cotton MD at [facility] OSC PRO OSTEOTOMY FEMUR SHAFT/SUPRACONDY 08/15/2010 ??OSTEOTOMY, FEMUR SHAFT OR SUPRACONDYLAR W/O FIXATION performed by BARRERA OLIVER at [facility] MAIN OR PRO RECONSTRUC HIP SOCKET, RESEC FEM HEAD 08/15/2010 ??ACETABULOPLASTY (GIRDLESTONE), RESECTION FEMORAL HEAD, BILATERAL performed by BARRERA OLIVER [facility] MAIN OR PRO REMOVAL DEEP IMPLANT 08/15/2010 REMOVAL IMPLANT, DEEP, BRUNO performed by BARRERA OLIVER at [facility] MAIN OR PRO REMOVAL ERUPTED TOOTH WITH ELEVATION OF MUCOPERIOSTEAL FLAP N/A 06/14/2018 SURGICAL EXTRACTIONS REQUIRING ELEVATION OF MUCOPERIOSTEAL FLAP AND REMOVAL OF BONE OR SECTION OF TOOTH (WRVU 1.09) performed by Keith Cotton MD at [facility] OSC PRO REMOVE INFUSN DEVICE/PUMP N/A 05/11/2014 REMOVAL OF SPINE INFUSION PUMP performed by Jamaal Samuel MD at [facility] MAIN OR PRO REMOVE SPINAL CANAL CATHETER N/A 05/11/2014 REMOVAL OF INTRATHECAL OR EPIDURAL CATHETER performed by Jamaal Samuel MD at [facility] MAIN OR PRO REPR, DURAL/CSF LEAK, NOT REQ LAMINECTOMY N/A 05/20/2014 @REPAIR DURAL\CSF LEAK,NOT REQUIRING LAMINECTOMY performed by Freddy Isbell MD at [facility] MAIN OR MEDICATIONS: Current Outpatient Medications [...] [Transparent Dressings] Itching and Dermatitis Please use [id number] Cyclobenzaprine Other Reaction(s): Not available Penicillins SOCIAL [...] labs. Theyare requesting these to go to [facility] ([facility] They are aware [...] Mom requesting consent to order colonoscopy. Called [phone]. Awaiting call back for consent for colonoscopy. Ordered colonoscopy at this time and will await consent confirmation with mom prior to procedure. Total time spent on encounter today: Time spent reviewing records prior to this encounter: 10 minutes Time spent during encounter with patient including counselin minutes Time spent documenting encounter after office visit: 5 minutes Samantha Crystal, MSN, BI CONSULTANT, HEDDLER-C Section of Gastroenterology [place] [address] documented in this encounter Plan of Treatment Upcoming Encounters Date Type Department Care Team (Late st Contact Info) Description 06/02/2024 12:30 PM EST Office [place] [address] Hollie Ambriz MD [facility] [place] [address] Scheduled Orders Name Type Priority Associated Diagnoses [...] type documented in this encounter Care Teams Youth Program Director Relationship Specialty Start Date End Date Lorna Bal APRN [address] [place] [address] PCP - General Family Medicine 05/27/18 documented as of this encounter
--- OUTSIDE RECORDS SUMMARY | 2023-12-04 12:35 | XMS_ITS | Encounter Summary ---
Author Organization [facility] [place] [address] Care Team Providers Care Clinical Laboratory Scientist Name Role Phone Lorna Bal APRN Primary Care Provider +1 -[phone] Encounter Details Date Type Department Care Team (Late st Contact Info) Description 08/11/2023 Telephone [place] [address] Halima García Social History Tobacco Use Types Packs/Day Years Used Date Smoking Tobacco: Never Smokeless Tobacco: Never Comments:NO SMOKERS IN THE H OME Alcohol Use Standard Drinks/Week Comments No 0 (1 standard drink = 0.6 oz pur e alcohol) [facility] Inpatient Questions Answer Date Recorded Does Anyone [...] (Bactrim) 400-80 mg tablet. Please send to: [facility] - [place], [place] - [address] [facility] documented in this encounter Plan of Treatment Upcoming Encounters Date Type Department Care Team (Late st Contact Info) Description 06/02/2024 12:30 PM EST Office [place] [address] Hollie Ambriz MD [facility] [place] [address] documented as of this encounter Visit Diagnoses Not on filedocumented in this encounter Care Teams Clinical Laboratory Scientist Relationship Specialty Start Date End Date Lorna Bal APRN [address] [place] [address] PCP - General Family Medicine 05/27/18 documented as of this encounter
--- OUTSIDE RECORDS SUMMARY | 2023-12-04 12:35 | XMS_ITS | Encounter Summary ---
Author Organization [facility] Address [place] [address] Care Team Providers Care Catering Service Manager Name Role Phone Lorna Bal APRN Primary Care Provider +1 -[phone] Reason for Visit * Reason Comments Medication Refill Encounter Details Date Type Department Care Team (Late st Contact Info) Description 09/10/2023 Refill [place] [address] Hollie Ambriz MD [facility] [place] [address] Social History Tobacco Use Types Packs/Day Years [...] PM EST Office [place] [address] Hollie Ambriz MD [facility] [place] [address] documented as of this encounter Visit Diagnoses Not on filedocumented in this encounter Care Teams Catering Service Manager Relationship Specialty Start Date End Date Lorna Bal APRN [address] [place] [address] PCP - General Family Medicine 05/27/18 documented as of this encounter
--- OUTSIDE RECORDS SUMMARY | 2023-12-04 12:35 | XMS_ITS | Encounter Summary ---
Author Organization [facility] [place] [address] Care Team Providers Care Landscape Maintenance Internship Name Role Phone Lorna Bal APRN Primary Care Provider +1 -[phone] Encounter Details Date Type Department Care Team [...] Department Care Team (Late Contact Info) Description 06/02/2024 12:30 PM EST Office Visit Infectious Disease at [facility] [place] [address] Hollie Ambriz MD [facility] [place] [address] documented as of this encounter Visit Diagnoses Not on filedocumented in this encounter Care Teams Landscape Maintenance Internship Relationship Specialty Start Date End Date Lorna Bal APRN [address] [place] [address] PCP - General Family Medicine 05/27/18 documented as of this encounter
--- OUTSIDE RECORDS SUMMARY | 2023-12-04 12:35 | XMS_ITS | Encounter Summary ---
Author Organization [facility] Address 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; Spinal abscess; Acute [...] PM EST Office Visit [place] [address] Hollie Ambriz MD [facility] [place] [address] documented as of this encounter Visit Diagnoses 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
--- OUTSIDE RECORDS SUMMARY | 2023-12-04 12:35 | XMS_ITS | Encounter Summary ---
Author Organization [facility] Address [facility] [place] [address] Care Team Providers Care Sports Editor Name Role Phone Lorna Bal APRN Primary Care Provider +1 -[phone] Encounter Details Date Type Department Care Team (Latest Contact Info) Description 08/05/2023 9:03 AM EDT - 08/05/2023 11:39 AM EDT Hospital Encounter [place] [address] Jamar Gastelum MD [facility] [place] [address] Discharge Disposition: Home Social History Tobacco Use Types Packs/Day Years Used Date Smoking Tobacco: Never Smokeless Tobacco: Never Comments:NO SMOKERS IN THE H OME Alcohol Use Standard Drinks/Week Comments No 0 (1 standard drink = 0.6 oz pur e alcohol) [facility] Inpatient Questions Answer Date Recorded Does Anyone [...] occurs, please contact your Doctor. Please call [phone] before 8pm Mon-Fri with problems, questions or concerns. If you call after 8pm or on weekends, call the Hospital at [phone] and ask to speak to the Data Power Consultant telephone order clerk room service and the cnc operator machinist will contact that person for you. When should you call for help? Call [phone] anytime you think you may need emergency [...] After Visit Summary and more online at [email or web address] If you would like to provide feedback about your hospital experience, please call the Office of Patient and Family Relations at . If you have received this After Visit Summary in error, please immediately return it in person to the department, or notify the [facility] Privacy Office by calling toll free at between the hours of 8AM and 5PM to arrange for our retrieval of the documents at no cost to you. Content Version: 12.2 ?? 2817-4155 [employer]. Care instructions adapted under license by [facility]. If you have questions about a medical condition or this instruction, always ask your healthcare professional. [employer] disclaims any warranty or liability for your [...] Gastelum MD - 08/05/2023 10:35 AM EDT [facility] Operative Note Patient Name: Tana Cavazos : [id number] MR#: [id number] Case Date: 08/05/2023 Surgeon: Surgeon(s) and Role: [...] PM EST Office Visit [place] [address] Hollie Ambriz MD [facility] [place] [address] documented as of this encounter Procedures Procedure Name Priority Date/Time Associated Diagnosis Comments SPECIMEN TO PATHOLOGY Routine 08/05/2023 11:01 AM EDT SURGICAL PATHOLOGY REPORT Routine 08/05/2023 11:00 AM EDT Colonoscopy, Biopsy ([id number]) 08/05/2023 10:27 AM EDT Constipation, unspecified constipation type COLONOSCOPY Routine 08/05/2023 9:59 AM EDT documented in this encounter Results * Specimen to Pathology (08/05/2023 11:01 AM EDT) AP Specimen 08/05/2023 11:0 1 AM EDT 08/05/2023 11:01 AM EDT Narrative [facility] - 08/05/2023 11:01 AM EDT Specimen requisition ordered. ??Separate Pathology report to follow Jamar Hair MD PATHOLOGY/CYTOLO GY ORDERABLES [facility] [place] [address] * Surgical Pathology Report (08/05/2023 11:00 AM EDT) Final Diagnosis [id number] ? Location: 4T; EA11; A The signing pathologist has (i) examined the relevant preparation(s) for the specimen(s) and (ii) rendered or confirmed the diagnosis(es). . ?Surgical Pathology DIAGNOSIS A - Rectum r/o microscopic colitis, biopsy (Multiple): - ??Colonic mucosa within normal limits. CR-PX Electronically signed by: ?Jazmyne GIRALDO PhD, Courtney Verified: ??08/17/2023 16:08 ??Pathologist Performed at: ??-[facility] Dept. of Pathology, [place] [address] Textile Machinery Sales Representative: Frank Turpin MD, FCAP, ??CLIA Certificate: [id number] SPECIMEN(S) SUBMITTED A - rectum r/o microscopic colitis, biopsy (Multiple) CLINICAL INFORMATION 28-year-old female with chronic constipation SPECIMEN PROCESSING A - Labeled/Fixative : Rectum rule out microscopic colitis, formalin. Quantity/Size: Multiple, averaging 0.3 cm. Tissue Description: Soft, red tissues. Sections/Process ing: Submitted in toto ??in 2 cassettes labeled A1-A2. ??sns 08/17/2023 4:08 PM EDT [facility] GI Biopsy 08/05/2023 11:0 0 AM EDT 08/05/2023 11:00 AM EDT Jamar Hair MD PATHOLOGY/CYTOLO GY ORDERABLES [facility] [place] [address] * COLONOSCOPY (08/05/2023 9:59 AM EDT) COLONOSCOPY [facility] ___ Procedure Date: 08/05/2023 9:59 AM ? Patient Name: Tana Cavazos ? Date of : 1995 ? Age: 28 ? Order #: [id number] ? Instrument Name: [id number] ? ___ Procedure: ? Colonoscopy Indications: ? [...] Active and Recently Administered Medications Care Teams Sports Editor Relationship Specialty Start Date End Date Lorna Bal APRN [address] [place] [address] PCP - General Family Medicine 05/27/18 documented as of this encounter
--- OUTSIDE RECORDS SUMMARY | 2023-12-04 12:35 | XMS_ITS | Encounter Summary ---
Author Organization [facility] [place] [address] Care Team Providers Care Gas Scrubber Operator Name Role Phone Lorna Bal APRN Primary Care Provider [phone] Reason for Referral * Consultation (Routine) - Closed Specialty Diagnoses / Procedures Referred By Contac t Referred To Contact Infectious Diseases Diagnoses Spinal abscess Hollie Ambriz MD [facility] [place] [address] Hollie Ambriz MD [facility] [place] [address] Referral ID Status Reason Start Date Expiration Date V isits Requested Visits Authorized [id number] Closed Assume Subset of Care 11/02/2023 11/01/2024 1 1 * Home Health Care (Routine) - Authorized Specialty Diagnoses / Procedures Referred By Contac t Referred To Contact Diagnoses Spinal abscess Wally Rosen MD [facility] [place] [address] [facility] [address] [place] [address] Referral ID Status Reason Start Date Expiration Date Visits Requested Visits Authorized [id number] Authorized Consult, Test & Treat 11/03/2023 05/01/2024 999 999 * Diagnostic Test (Routine) - Closed Specialty Diagnoses / Procedures Referred By Contac t Referred To Contact Radiology Diagnoses Abscess Procedures IR Drain Check/Change/Remove Andrade Melvin MD [facility] [place] [address] [facility] [place] [address] Referral ID Status Reason Start Date Expiration Date V isits Requested Visits Authorized [id number] Closed Specialty Service Requested 10/30/2023 05/01/2025 1 1 Reason for Visit * Reason Comments Abscess In back * Auth/Cert (Routine) Specialty Diagnoses / Procedures Referred By Contac t Referred To Contact Diagnoses Abscess Procedures EMERGENCY IPI Sharron Winters MD [facility] [place] [address] [facility] Referral ID Status Reason Start Date Expiration Date Visits Re quested Visits Authorized [id number] 1 1 Encounter Details Date Type Department Care Team (Latest Contact Info) Description 10/28/2023 8:05 PM EDT - 11/03/2023 5:25 PM EDT Hospital Encounter Medical Specialites Unit Level 1 [place] [address] Siomara Hernandez MD [facility] [place] [address] Andrade Ocampo MD [facility] [place] [address] [place] [address] [place] [address] [place] [address] Abscess; Spinal abscess Discharge Disposition: Home with VNA Social History Tobacco Use Types Packs/Day Years Used Date Smoking Tobacco: Never Passive Smoke Exposure: Never Smokeless Tobacco: Never Comments:NO SMOKERS IN THE H OME Alcohol Use Standard Drinks/Week Comments No 0 (1 standard drink = 0.6 oz pur e alcohol) [facility] Utilities Answer Date Recorded In the past 12 months has th e iPAYst, gas, oil, or water Storage [employer] threatened to shut off services in your [...] any time in the past 12 m [facility]x [place], were you homeless or living in a alf (including now)? No 10/29/2023 DH IPV Inpatient [...] Tana Cavazos Patient Age: 28 y.o. Language: Burmese Race: White Ethnicity: Not nor Admit date: [...] please contact your inpatient physician through the [facility] Mannequin Sander And Finisher . Issues afterhours and on weekends will [...] inflammatory markers. Tana was then brought to [facility], where she has been receiving her medical [...] 27 ALKPHOS 209* BILITOT <0.2* Recent Labs 11/02/2352510/31/2344610/30/238 10/29/23 0837 10/29/23 0208 CALCIUM 9.8 9.2 [...] 10/28/2023 9:50 PM) Result Value WORKSTATION ID [id number] Impression Focal heterogeneous organizing collection at the [...] who have questions please contact the health memory care program director that requested your imaging first. Abdomen 1 view (Generic) (Exam End: 11/01/2023 10:14 PM) Result Value WORKSTATION ID [id number] Impression 1. Rectal distention with stool. 2. No evidence of obstruction. 3. Bony demineralization, LEFT hip dysplasia, Mcnair rods, severe scoliosis Thank you for letting us participate in the care of this patient. If you are a health care provider and have any questions regarding this report, please contact the number below. For patients who have questions please contact the health memory care program director that requested your imaging first. Electronically signed by: Marisela Estrella MD, [facility] ([phone]), at 11/02/2023 8:47 AM XR PICC Placement Over 5 Years with Imaging Guidance (IV Team) (Exam End: 11/03/2023 11:19 AM) Result Value WORKSTATION ID [id number] Impression Satisfactory position of left PICC. I [...] who have questions please contact the health memory care program director that requested your imaging first. Pending Studies and Lab Data: none Discharge Conditions/Prognosis: stable Discharge to: home with OPAT Updated Allergies/ADRs: Allergies Allergen Reactions Fluoxetine Other (See Comments) HIVES, HEART RACES Tegaderm [Transparent Dressings] Itching and Dermatitis Please use [id number] Cyclobenzaprine Other Reaction(s): Not available Doxycycline Other (See Comments) Cough, rash Penicillins Immunizations Given this Hospitalization: Immunization History Administered Date(s) Administered Influenza (Novel H1L9-87) Injectable 02/25/2009 Influenza Trivalent w/Preservative 04/25/2011 Influenza [...] for 6 weeks Your Inpatient Doctor(s) at [facility]: Paola Betancur General Instructions None Future Appointments and Orders Future Appointments and Orders Future Appointments Provider Department Dept Phone 11/30/2023 12:50 PM [facility] IR ROOM 4 Radiology at [facility] Arrive at: 3 RADIOLOGY [phone] Please expect a call from a radiology nurse within 3 days of your exam, you will need to follow theinstructions given at that time. Future Orders Complete By Expires IR Drain Check/Change/Remove [[id number] Custom] 11/30/2023 (Approximate) 05/31/2024 Process Instructions: Scheduling Instructions: Comments: Questions: Where will study be performed?: [facility] Radiology To be scheduled: Next available after [...] Recommendation for Post Discharge IV Antibiotic Management [WLV843 CPT(R)] As directed Process Instructions: If no progress note charted, please enter Clinical details in comments. Scheduling Instructions: Comments: - If this order was signed greater than 72 hours prior to [facility] discharge, please call to confirm the accuracy of this order. Please Fax all results to: OPAT Program Infectious Disease Section [facility], [place] [address] FAX: - After hours, please contact the Infectious Disease Physician suction operator at . - Line care instructions - see flush/heparin orders. Facilities may follow organizational policies/practices regarding heparin. - FPC for medication administration/cotton gin yard supervisor and catheter care/maintenance authorized. - CVC/PICC Dressing Change weekly and PRN Please use CHG or Bio Patch RN: Please care for PICC line including dressing changes weekly and prn. Please draw labs every Thursday and PRN and [facility] [phone]. Please draw labs off PICC line. [facility]. Please RN visit for IV ABX teaching and ongoing assessment. Fpc for Medication Administration/Hookup and catheter care/maintenance: - Teach Patient/Caregiver goals/self-monitoring/therapy administration to independence per the Nursing Care Plan. - FPC visit frequency; initial, weekly and 2 PRN [...] Osteomyelitis and hardware infection of lower mid industrial economics professor to sacral region of spine S/P drain placement on 10/30 Microorganisms being treated: Unknown Special Instructions: After IV ABX, should transition back to patient escort suppression with TMP-SMX Antibiotic: Ceftriaxone 2G IV [...] Tana Cavazos for admission to Home Health. [address] [place] [phone] (home) [phone] (work) Date of : 1995 Inpatient DOCUMENTATION FOR VNA SERVICES (INCLUDING THOSE PATIENTS WITH MEDICARE COVERAGE REQUIRING HOME VNA SERVICES AND/OR HOSPICE SERVICES) PATIENT'S LOCATION: Tana Cavazos [address] [facility] [address] (home) Cell: Telephone Information: Public Works Commissioner's Name: Fannie Villarreal (Guardian) [phone] (M) In discussion with the attending physician, it is certified that this patient is under their care and that they, or a Nurse Practitioner, Clinical Nurse specialist or Physician Steward/Stewardess Room who is working directly with them, had [...] routine PICC care) HOME HEALTH CARE AGENCY: [facility]. [address] [place] [id number] START OF CARE: within 24-48 hours of discharge Questions: Disciplines Requested: Nursing Recurring Lab Work Interval Expires CBC (with Diff) [[id number] Custom] Once a week until 01/03/2024 01/03/2024 Process Instructions: Scheduling Instructions: Comments: To be Drawn on Thursday. Please fax orders to [facility] ID at [phone]. Questions: Comprehensive metabolic panel (non-fasting) [[id number] Custom] Once a week until 01/03/2024 01/03/2024 Process Instructions: Scheduling Instructions: Comments: To be Drawn on Thursday. Please fax orders to [facility] ID at [phone]. Questions: CRP, acute inflammation [[id number] Custom] Once a week until 01/03/2024 01/03/2024 Process Instructions: Scheduling Instructions: Comments: To be Drawn on Thursday. Please fax orders to [facility] ID at [phone]. Questions: Discharge References/Attachments None documented in this [...] for 6 weeks Your Inpatient Doctor(s) at [facility]: Paola Carrington and Danita documented in this [...] tablet Take 2 tablets by mouth nightly. ergocalciferoL, vitamin D2, (vitamin D2) 50,000 unit capsule Take 50,000 Units by mouth once a week. 01/15/2023 12/03/2023 baclofen (Lioresal) 10 mg tablet Take 10 mg by mouth 3 times daily. 12/03/2023 documented as of this encounter Progress Notes [...] spent >30 minutes (Day of Discharge Code 81278) involved in the final examination of the [...] minimumof two midnights or is on the [facility] inpatient only procedure list (status C) [...] the last 168 hours. Recent Labs 11/02/23 05 AST 13 ALT 27 Recent Labs 11/02/23525 ALKPHOS 209* BILITOT <0.2* No results for [...] 10/28/2023 9:50 PM) Result Value WORKSTATION ID [id number] Impression Focal heterogeneous organizing collection at the [...] who have questions please contact the health memory care program director that requested your imaging first. Abdomen 1 view (Generic) (Exam End: 11/01/2023 10:14 PM) Result Value WORKSTATION ID [id number] Impression 1. Rectal distention with stool. 2. No evidence of obstruction. 3. Bony demineralization, LEFT hip dysplasia, Mcnair rods, severe scoliosis Thank you for letting us participate in the care of this patient. If you are a health care provider and have any questions regarding this report, please contact the number below. For patients who have questions please contact the health memory care program director that requested your imaging first. Electronically signed by: Marisela Estrella MD, [facility] ([phone]), at 11/02/2023 8:47 AM ECG: No results [...] and washout with complex plastics closure at [facility] in [place] on 02/11, after which she was treated [...] which she should likely transition back to patient escort suppression with TMP-SMX. Recommendations: - Stop daptomycin - Continue IV ceftriaxone 2g daily for a total of 6 weeks, ending on 12/11/2023 - After finishing above, should transition back to alf suppression with TMP-SMX - Cleared from ID perspective for PICC placement - Check CBC w/ diff, CMP, and CRP weekly to monitor for clinical progression and antimicrobial toxicity - We will arrange ID follow-up appointment prior to completion of IV ceftriaxone I spent a total of 50 minutes on the [id number]-wz-[id number] encounter, chart review, documentation, and coordination of [...] (flush), lidocaine, melatonin Labs Reviewed: Recent Labs 10/31/2344610/30/238 10/29/23 0837 WBC 5.2 6.9 8.6 HGB 11.1* 11.3* 11.2* HCT 33.8* 34.8* 33.8* PLATELET 488* 432* 477* Recent Labs 10/31/2344610/30/23 0448 10/29/23 0837 10/29/23 0208 NA 140 136 [...] 10/28/2023 9:50 PM) Result Value WORKSTATION ID [id number] Impression Focal heterogeneous organizing collection at the [...] who have questions please contact the health memory care program director that requested your imaging first. : No [...] lidocaine, melatonin, acetaminophen Labs Reviewed: Recent Labs 10/31/2344610/30/238 10/29/23 0837 WBC 5.2 6.9 8.6 HGB 11.1* 11.3* 11.2* HCT 33.8* 34.8* 33.8* PLATELET 488* 432* 477* Recent Labs 10/31/2344610/30/23 0448 10/29/23 0837 10/29/23 0208 NA 140 136 [...] 10/28/2023 9:50 PM) Result Value WORKSTATION ID [id number] Impression Focal heterogeneous organizing collection at the [...] who have questions please contact the health memory care program director that requested your imaging first. : No [...] check follow up in 4 weeks ordered, auto haulaway driver updated. Willis Calero DO, MBA Interventional Radiology 10/31/2023 [id number] * Dimple Jimenez RN - 10/30/2023 3:33 PM EDT Called report to EUNICE Kevin at [phone] * Dimple Jimenez RN - 10/30/2023 3:04 PM EDT [facility] Name: Tana Cavazos Date of : 1995 AGE: 28 y.o. Address: [address] [place] [address] (home) [phone] (work) Mobile: Telephone Information: Referring Provider: None [...] [Transparent Dressings] Itching and Dermatitis Please use [id number] Cyclobenzaprine Other Reaction(s): Not available Doxycycline Other [...] minimumof two midnights or is on the [facility] inpatient only procedure list (status C) [...] 36.5 PLATELET 432* 477* 525* Recent Labs 10/30/2344710/29/2383610/29/23 0208 10/28/23 2100 NA 136 140 -- [...] 10/28/2023 9:50 PM) Result Value WORKSTATION ID [id number] Impression Focal heterogeneous organizing collection at the [...] who have questions please contact the health memory care program director that requested your imaging first. : No results found for: DIAGLINE, QTCCALC * Kristina Rodriguez RN - 10/30/2023 9:26 AM EDT IR for drain placement today for a paraspinal fluid collection; then ID will need to be consulted for results and to decide on OPAT They have requested referrals to: [address] or Note routed to a Assembly Repairer who will communicate referrals to facilities and [...] minimumof two midnights or is on the [facility] inpatient only procedure list (status C) [...] 10/28/2023 9:50 PM) Result Value WORKSTATION ID [id number] Impression Focal heterogeneous organizing collection at the [...] who have questions please contact the health memory care program director that requested your imaging first. : No [...] Procedure Request: Interventional Radiology Service contacted by [facility] at 12:15 PM regarding the procedure [...] (bilateral); Reconstruc Hip Socket, Resec Fem Head (45166) (08/15/2010); Apply Of Hip Casts, Two Legs (25575) (08/15/2010); Removal Deep Implant (09204) (08/15/2010); Osteotomy Femur Shaft/Supracondy (43762) (2010); Remove Spinal Canal Catheter (62837) (N/A, 05/11/2014); Remove Infusn Device/Pump (04758) (N/A, 05/11/2014); I&D, Post Spine, Lumb/Sacr/Lumbosac (00631) (N/A, 05/20/2014); Repr, Dural/Csf Leak, Not Req Laminectomy (24916) (N/A, 05/20/2014); I&D, Post Spine, Lumb/Sacr/Lumbosac (92036) (N/A, 05/26/2014); Impact Tooth Remov Comp Bony (D7240) (N/A, 06/14/2018); Rem Imp Tooth W Mucoper Flp (D7210) (N/A, 06/14/2018); IR All Drainage Procedures (06/25/2022); IR Drain Check/Change/Remove (07/01/2022); IR All Drainage Procedures (07/04/2022); IR All Drainage Procedures (07/24/2022); IR Drain Check/Change/Remove (08/11/2022); IR Drain Check/Change/Remove (08/25/2022); IR Drain Check/Change/Remove (09/10/2022); IR All Drainage Procedures (09/26/2022); and Colonoscopy, Biopsy (41820) (N/A, 08/05/2023). Medications: Current Outpatient Medications Medication [...] Interventional & Diagnostic Radiology IR Team Pager: [phone] Personal Pager [phone] 10/29/2023 * Sharron Winters MD - 10/29/2023 [...] Fannie, her legal guardian. She states that Taan underwent back surgery last January, and had been on antibiotics until they were stopped in August. Fannie noticed recurrent redness and warmth in Tana's lower back, and Tana developed a fever up to 100.3??F. Lab tests at a nearby hospital showed elevated inflammatory markers. Tana was then brought to [facility], where she has been receiving her medical [...] All Drainage Procedures 06/25/2022 Mich Martino MD [facility] INTERVENTIONL RAD IR ALL DRAINAGE PROCEDURES 07/04/2022 IR All Drainage Procedures 07/04/2022 Mich Martino MD [facility] INTERVENTIONL RAD IR ALL DRAINAGE PROCEDURES 07/24/2022 IR All Drainage Procedures 07/24/2022 Anurag Kumar MD [facility] INTERVENTIONL RAD IR ALL DRAINAGE PROCEDURES 09/26/2022 IR All Drainage Procedures 09/26/2022 Jamaal Jenkins, DO [facility] INTERVENTIONL RAD IR DRAIN CHECK/CHANGE/REMOVE 07/01/2022 IR Drain Check/Change/Remove 07/01/2022 Jamaal Jenkins, DO [facility] INTERVENTIONL RAD IR DRAIN CHECK/CHANGE/REMOVE 08/11/2022 IR Drain Check/Change/Remove 08/11/2022 Piter Self MD [facility] INTERVENTIONL RAD IR DRAIN CHECK/CHANGE/REMOVE 08/25/2022 IR Drain Check/Change/Remove 08/25/2022 Jamaal Jenkins, DO [facility] INTERVENTIONL RAD IR DRAIN CHECK/CHANGE/REMOVE 09/10/2022 IR Drain Check/Change/Remove 09/10/2022 Mich Martino MD [facility] INTERVENTIONL RAD PRO APPLY OF HIP CASTS, TWO LEGS 08/15/2010 CAST APPLICATION, HIP SPICA, BOTH LEGS performed by BARRERA OLIVER at [facility] MAIN OR PRO COLONOSCOPY, BIOPSY N/A 08/05/2023 COLONOSCOPY FLEXIBLE, WITH BX (WRVU 3.56) performed by Jamar Gastelum MD at [facility] ENDOSCOPY PRO I&D, POST SPINE, LUMB/SACR/LUMBOSAC N/A 05/20/2014 @I & D, OPEN, DEEP ABSCESS, LUMBAR, SACRAL, LUMBOSACRAL performed by Freddy Isbell MD at [facility] MAIN OR PRO I&D, POST SPINE, LUMB/SACR/LUMBOSAC N/A 05/26/2014 @I & D, OPEN, DEEP ABSCESS, LUMBAR, SACRAL, LUMBOSACRAL performed by Freddy Isbell MD at [facility] MAIN OR PRO IMPACT TOOTH REMOV COMP BONY N/A 06/14/2018 SURGICAL EXTRACTIONS, REMOVAL OF IMPACTED TOOTH, COMPLETELY BONY (WRVU 1.93) performed by Keith Cotton MD at [facility] OSC PRO OSTEOTOMY FEMUR SHAFT/SUPRACONDY 08/15/2010 ??OSTEOTOMY, FEMUR SHAFT OR SUPRACONDYLAR W/O FIXATION performed by BARRERA OLIVER at [facility] MAIN OR PRO RECONSTRUC HIP SOCKET, RESEC FEM HEAD 08/15/2010 ??ACETABULOPLASTY (GIRDLESTONE), RESECTION FEMORAL HEAD, BILATERAL performed by BARRERA OLIVER [facility] MAIN OR PRO REMOVAL DEEP IMPLANT 08/15/2010 REMOVAL IMPLANT, DEEP, BRUNO performed by BARRERA OLVIER at [facility] MAIN OR PRO REMOVAL ERUPTED TOOTH WITH ELEVATION OF MUCOPERIOSTEAL FLAP N/A 06/14/2018 SURGICAL EXTRACTIONS REQUIRING ELEVATION OF MUCOPERIOSTEAL FLAP AND REMOVAL OF BONE OR SECTION OF TOOTH (WRVU 1.09) performed by Keith Cotton MD at [facility] OSC PRO REMOVE INFUSN DEVICE/PUMP N/A 05/11/2014 REMOVAL OF SPINE INFUSION PUMP performed by Jamaal Samuel MD at [facility] MAIN OR PRO REMOVE SPINAL CANAL CATHETER N/A 05/11/2014 REMOVAL OF INTRATHECAL OR EPIDURAL CATHETER performed by Jamaal Samuel MD at [facility] MAIN OR PRO REPR, DURAL/CSF LEAK, NOT REQ LAMINECTOMY N/A 05/20/2014 @REPAIR DURAL\CSF LEAK,NOT REQUIRING LAMINECTOMY performed by Freddy Isbell MD at [facility] MAIN OR Prior To Admission Medications: (Not in a hospital admission) Allergies: Allergies Allergen Reactions Fluoxetine Other (See Comments) HIVES, HEART RACES Tegaderm [Transparent Dressings] Itching and Dermatitis Please use [id number] Cyclobenzaprine Other Reaction(s): Not available Doxycycline Other [...] Resource Strain: Low Risk (02/21/2023) Received from [facility] Overall Financial Resource Strain (CARDIA) Difficulty of Paying Living Expenses: Not very hard Food Insecurity: Unknown (02/21/2023) Received from [facility] Hunger Vital Sign Worried About Running Out of Food in the Last Year: Never true Ran Out of Food in the Last Year: Not on file Transportation Needs: No Transportation Needs (02/21/2023) Received from [facility] PRAPARE - Transportation Lack of Transportation (Medical): No Lack of Transportation (Non-Medical): No Physical Activity: Not on file Intimate Partner Violence: Unknown (02/21/2023) Received from [facility] Humiliation, Afraid, Rape, and Kick questionnaire Fear of Current or Ex-Partner: No Emotionally Abused: Not on file Physically Abused: Not on file Sexually Abused: Not on file Housing Stability: Unknown (02/21/2023) Received from [facility] Housing Stability Vital Sign Unable to Pay for Housing in the Last Year: Not on file Number of Places Lived in the Last Year: Not on file Unstable Housing in the Last Year: No Immunizations: Immunization History Administered Date(s) Administered Influenza (Novel D3V9-15) Injectable 02/25/2009 Influenza Trivalent w/Preservative 04/25/2011 Influenza [...] Regular diet DVT Prophylaxis: LMWH Anticipated Disposition: patient escort care facility Code Status: Attempt Cardiopulmonary Resuscitation [...] to the planned procedure. Hand Hygiene: The paper inserter did perform hand hygiene prior to line insertion. Catheter type: PICC Lot number: [id number] Procedure Technique: Skin was prepped with chlorhexidine. [...] outpatient blood draw. Patient was referred to [facility] by infectious disease for a CT of [...] nursing note reviewed. Exam conducted with a acupuncture physician present. HENT: Head: Normocephalic and atraumatic. Cardiovascular: [...] who have questions please contact the health memory care program director that requested your imaging first. Procedures Assessment [...] fluid collection treated as likely infections on patient escort antibiotics currently Bactrim presenting with about 5 [...] surgery. Initially surgery believed to be at [facility]. Was on antibiotics until a month [...] from the [place] [address] [facility] Vascular Access Service Peripherally Inserted Central Catheter (PICC) Teaching Sheet Peripherally inserted central catheters (fyad-xp-cquc) (PICC) are used when you need IV [...] midline catheter? PICC lines are used for alf treatments. PICC lines may be used for [...] can be set up via the nurse Instrument Panel Assembler to help you. What are possible complications [...] Vascular Access Device Selection, Insertion, and Management, [employer] Systems 01/29. A Review of the Efficacy, Safety, Use, and Administration of [employer], [employer] 2005 * Plan of Care - Arielle Patino, EUNICE - 11/03/2023 3:34 AM EDT OUTCOME EVALUATION NOTE: OUTCOME SUMMARY: Pt tachy. MD alerted. Otherwise VSS on RA. Pt nonverbal. Unable to answer orientation questions. Associate Financial Advisor at bedside. 1x BM this shift. CARMELLA [...] infusion. Please page the PICC room at [phone] or call [phone] between the hours of 7:00am and 5:30pm Thursday-Thursday for PICC line placement/scheduling. After hours the Vascular Access Service can be reached at anytime on pager [phone] PICCrequests for the following day. [...] Home Health Services: Registered Nurse Agency Referrals: [facility] [address] [place] [id number] [place] [address] or Transportation: family or friend will provide Plan going forward: Care Management will continue to follow and assist with discharge planning and coordination of care as indicated. Anticipated Date of Discharge: 11/06/2023 Kristina Rodriguez [facility] DIRECTOR upper lining cementer [phone] * Plan of Care - Arielle Patino RN - 11/02/2023 5:29 AM EDT OUTCOME EVALUATION NOTE: OUTCOME SUMMARY: Pt VSS on RA. Pt nonverbal. Unable to answer orientation questions. Moans and frowns when in pain. Pain medication given per JUN. Associate Financial Advisor at bedside. 1x BM this shift. CARMELLA [...] - Initial Consultation ID: Tana Cavazos Room: [address] [place] [address] Consulting Service: Hospital Medicine Consulting Attending: Rebel Carrington MD Admission Date: 10/28/2023 Reason for Consult: Recurrent spinal infection HPI: Tana Cavazos is a 28 y.o. female with Hx of cerebral palsy w/ spastic quadriplegia, non-verbal at baseline, as well as prior posterolateral spinal fusion in 2008 and bilateral Girdlestones in 2010, who was admitted to [facility] in May 2022 for redness and tenderness [...] site, for which she was readmitted to [facility] on 07/22 to manage this issue. On arrival to [facility], she was afebrile without leukocytosis. Repeat of [...] evaluated by spine surgery multiple times at [facility] and was not deemeda candidate for operative intervention. Then, she was seen at [facility] for a second surgical opinion. On 08/27/2022, superficialCxs there revealed growth of Staph hemolyticus and capitis. She was initially continued on doxycycline for this but subsequently switched to TMP-SMX in early September 2022 given ?possible allergic reaction. She also did undergo re-insertion of IR drains on 09/26, with Cxs again returning negative. Eventually, she got a third surgical opinion at [facility] in [place] given the need for plastics closure of [...] continued to follow in ID clinic at [facility]. We discussed the equipoise as to whether [...] [Transparent Dressings] Itching and Dermatitis Please use [id number] Cyclobenzaprine Other Reaction(s): Not available Doxycycline Other [...] lower extremities spontaneously Laboratory: Recent Labs 10/31/237 10/30/23 0448 10/29/23 0837 WBC 5.2 6.9 8.6 HGB 11.1* 11.3* 11.2* HCT 33.8* 34.8* 33.8* PLATELET 488* 432* 477* Recent Labs 10/31/237 10/30/23 0448 10/29/23 0837 NA 140 136 140 K [...] and washout with complex plastics closure at [facility] on 02/11, after which she was [...] a total of 80 minutes on the [id number] encounter, chart review, documentation, and coordination of [...] Consult Note - Kelly Cummings, [facility] - 10/30/2023 4:10 PM EDT [...] have. Alternately, during off-hours you may call [phone] to contact a pharmacist. [facility] Pharmacokinetics Note Drug: Vancomycin Pharmacokinetic target: AUC24 (range) 400-600 mg/L.hr Tana Cavazos is a(n) 28 years old female initiating Vancomycin for paraspinal infection, concern forosteo Recent measured serum creatinine values: 10/30/2023 04:48 0.33 mg/dL 10/29/2023 08:37 0.31 mg/dL 10/28/2023 21:00 0.25 mg/dL Assessment: Analysis using Logi-ServeRX gives the following patient-specific pharmacokinetic parameters: CL: [...] Rounding Note Situation: Asked to see Tana Freddy Cavazos by Zakia Mercado RN for low [...] or the wound care team at [phone] with skin and wound care concerns or [...] with applesauce. BP soft on all extremities: contacted, gave fluid boluses x2 with response [...] Alicja Franklin RN - 10/29/2023 9:08 AM EDTSumtimy: [place] Initial Assessment Office of Care Management [...] inflammatory markers. Tana was then brought to [facility], where she has been receiving her medical [...] were you homeless or living in a alf (including now)?: No In the past 12 months has the [employer], gas, oil, or water [employer] threatened to shut off services in your [...] bed Home Address confirmed as: [address] [facility] [address] Social & Family Supports: All names listed below confirmed with patient as current and correct Extended Emergency Contact Information Primary Emergency Contact: [place] [address] [facility] Mobile Relation: Guardianship Secondary Emergency Contact: Fernanda Sorensen Mobile Relation: Paid Caregiver Mother: Anderson Thorpe Address: [address] [address] [facility] Home Phone: [phone] Mobile Current Care Provided by: other (see comments) Provides Primary Care For: no one, unable/limited ability to care for self Caregiver if needed: other (see comments) (Fannie and Fernanda) Quality of Family relationships: helpful, supportive, involved Community Resources being provided currently: homecare agency ([facility] for blood draws.) Behavioral Health History: none [...] Insurance: N/A Prescription Coverage: Yes Preferred Pharmacy: [facility] Home Delivery - [facility] [address] [facility] [address] [facility] [address] [facility] [address] [address] [place] Status: Patient is a : No Primary Care Provider confirmed: Lorna Bal, FOOD PRODUCTION WORKER [phone] Patient/Caregiver Goals of Treatment: Fannie anticipates pt to return home upon discharge. Potential Needs for Transition of Care: home health care Agency Referrals: I have met with the printing sales representative to: discuss discharge planning needs. provide the [facility], Office of Care Management letter from the [facility] pertaining to rehab referrals. provide a letter describing our affiliations within the [facility] and educate about their right to choose where referrals are sent. provide a list of Home Health Agencies / Durable Medical Equipment vendors which serve their preferred geographic area. provided patient with [facility] Star Quality Rating handout. They have requested referrals to: [facility]. [address] [place] [address] Note routed to a Assembly Repairer who will communicate referrals to facilities and [...] care as indicated. Alicja Franklin RN, BSN, ACM-BUCKLE ASSEMBLERform grader operator Office of Care Management Pager: [phone] * Consult Note - Zach Pierre [facility] - 10/29/2023 3:01 AM EDT TelePharmmulticare health Home Medication List Update for Medication Reconciliation 10/29/23 3:01 AM Tana Cavazos 1995 Allergies Allergen Reactions Fluoxetine Other (See Comments) HIVES, HEART RACES Tegaderm [Transparent Dressings] Itching and Dermatitis Please use [id number] Cyclobenzaprine Other Reaction(s): Not available Doxycycline Other (See Comments) Cough, rash Penicillins Person Interviewed: [facility] Quality of Interview/accuracy of medication list: excellent Sources used to compile medication list: [] Epic medication list [] SureScripts/Dispense Report [] PCP/Specialist list [x] Retail pharmacy [] Patient list [] MAR [] Other Changes made to home medication list: Additions: Bisacodyl prn Deletions: Nystatin, Probiotic, Vitamin, Psyllium Changes: None Additional Notes: [facility] Medication List Recommended changes: None The home medication list is now updated to the best of my knowledge and is ready to be reconciled by the provider. Please contact the TelePhaacy Medication Reconciliation Pharmacist at for any questions. Zach Pierre [facility] * Consult Note - Zach Galvan MD [...] the patient underwent a revision surgery in [place], [place] that involved removal of a R [...] All Drainage Procedures 06/25/2022 Mich Martino MD [facility] INTERVENTIONL RAD IR ALL DRAINAGE PROCEDURES 07/04/2022 IR All Drainage Procedures 07/04/2022 Mich Martino MD [facility] INTERVENTIONL RAD IR ALL DRAINAGE PROCEDURES 07/24/2022 IR All Drainage Procedures 07/24/2022 Anurag Kumar MD [facility] INTERVENTIONL RAD IR ALL DRAINAGE PROCEDURES 09/26/2022 IR All Drainage Procedures 09/26/2022 Jamaal Jenkins, DO [facility] INTERVENTIONL RAD IR DRAIN CHECK/CHANGE/REMOVE 07/01/2022 IR Drain Check/Change/Remove 07/01/2022 Jamaal Jenkins, DO [facility] INTERVENTIONL RAD IR DRAIN CHECK/CHANGE/REMOVE 08/11/2022 IR Drain Check/Change/Remove 08/11/2022 Piter Self MD [facility] INTERVENTIONL RAD IR DRAIN CHECK/CHANGE/REMOVE 08/25/2022 IR Drain Check/Change/Remove 08/25/2022 Jamaal Jenkins, DO [facility] INTERVENTIONL RAD IR DRAIN CHECK/CHANGE/REMOVE 09/10/2022 IR Drain Check/Change/Remove 09/10/2022 Mich Martino MD [facility] INTERVENTIONL RAD PRO APPLY OF HIP CASTS, TWO LEGS 08/15/2010 CAST APPLICATION, HIP SPICA, BOTH LEGS performed by BARRERA OLIVER at [facility] MAIN OR PRO COLONOSCOPY, BIOPSY N/A 08/05/2023 COLONOSCOPY FLEXIBLE, WITH BX (WRVU 3.56) performed by Jamar Gastelum MD at [facility] ENDOSCOPY PRO I&D, POST SPINE, LUMB/SACR/LUMBOSAC N/A 05/20/2014 @I & D, OPEN, DEEP ABSCESS, LUMBAR, SACRAL, LUMBOSACRAL performed by Freddy Isbell MD at [facility] MAIN OR PRO I&D, POST SPINE, LUMB/SACR/LUMBOSAC N/A 05/26/2014 @I & D, OPEN, DEEP ABSCESS, LUMBAR, SACRAL, LUMBOSACRAL performed by Freddy Isbell MD at [facility] MAIN OR PRO IMPACT TOOTH REMOV COMP BONY N/A 06/14/2018 SURGICAL EXTRACTIONS, REMOVAL OF IMPACTED TOOTH, COMPLETELY BONY (WRVU 1.93) performed by Keith Cotton MD at [facility] OSC PRO OSTEOTOMY FEMUR SHAFT/SUPRACONDY 08/15/2010 ??OSTEOTOMY, FEMUR SHAFT OR SUPRACONDYLAR W/O FIXATION performed by BARRERA OLIVER at [facility] MAIN OR [facility] RECONSTRUC HIP SOCKET, RESEC FEM HEAD 08/15/2010 ??ACETABULOPLASTY (GIRDLESTONE), RESECTION FEMORAL HEAD, BILATERAL performed by BARRERA OLIVER [facility] MAIN OR PRO REMOVAL DEEP IMPLANT 08/15/2010 REMOVAL IMPLANT, DEEP, BRUNO performed by BARRERA OLIVER at [facility] MAIN OR PRO REMOVAL ERUPTED TOOTH WITH ELEVATION OF MUCOPERIOSTEAL FLAP N/A 06/14/2018 SURGICAL EXTRACTIONS REQUIRING ELEVATION OF MUCOPERIOSTEAL FLAP AND REMOVAL OF BONE OR SECTION OF TOOTH (WRVU 1.09) performed by Keith Cotton MD at [facility] OSC PRO REMOVE INFUSN DEVICE/PUMP N/A 05/11/2014 REMOVAL OF SPINE INFUSION PUMP performed by Jamaal Samuel MD at [facility] MAIN OR PRO REMOVE SPINAL CANAL CATHETER N/A 05/11/2014 REMOVAL OF INTRATHECAL OR EPIDURAL CATHETER performed by Jamaal Samuel MD at [facility] MAIN OR PRO REPR, DURAL/CSF LEAK, NOT REQ LAMINECTOMY N/A 05/20/2014 @REPAIR DURAL\CSF LEAK,NOT REQUIRING LAMINECTOMY performed by Freddy Isbell MD at [facility] MAIN OR Home Medications: (Not in a hospital admission) Allergies: Allergies Allergen Reactions Fluoxetine Other (See Comments) HIVES, HEART RACES Tegaderm [Transparent Dressings] Itching and Dermatitis Please use [id number] Cyclobenzaprine Other Reaction(s): Not available Doxycycline Other [...] course. James Swanson IV, DO Orthopaedic Surgery, [id number] ADDENDUM: Case reviewed with Dr. Galvan. Plan [...] she had I+D with hardware exchange at [facility] last year. She was doing well [...] PM EST Office [place] [address] Hollie Ambriz MD [facility] [place] [address] Scheduled Orders Name Type Priority Associated Diagnoses [...] (IV TEAM) Routine 11/03/2023 11:19 AM EDT CRP, ACUTE INFLAMMATION Routine 11/02/2023 5:26 AM EDT HEMOGRAM Routine 11/02/2023 5:26 AM EDT DIFFERENTIAL, AUTOMATED Routine 11/02/2023 5:26 AM EDT CBC (WITH DIFF) Routine 11/02/2023 5:26 AM EDT CK Routine 11/02/2023 5:26 AM EDT COMPREHENSIVE METABOLIC PANEL Routine 11/02/2023 5:26 AM EDT XR ABDOMEN 1 VIEW Routine 11/01/2023 10: 14 PM EDT MRSA PCR SCREEN Routine 10/31/2023 6:10 PM EDT CRP, ACUTE INFLAMMATION Routine 10/31/2023 4:47 AM EDT HEMOGRAM Routine 10/31/2023 4:47 AM EDT DIFFERENTIAL, AUTOMATED Routine 10/31/2023 4:47 AM EDT SEDIMENTATION RATE Routine 10/31/2023 4: 47 AM EDT CBC (WITH DIFF) Routine 10/31/2023 4:47 AM EDT MAGNESIUM Routine 10/31/2023 4:47 AM EDT BASIC METABOLIC PANEL Routine 10/31/2023 4:47 AM EDT IR ALL DRAINAGE PROCEDURES STAT 10/30/2023 3:23 PM EDT ANAEROBIC CULTURE Routine 10/30/2023 3:0 2 PM EDT HC GRAM STAIN FOR BACTERIA Routine 10/30/2023 3:02 PM EDT BODY FLUID CULTURE, AEROBIC Routine 10/30/2023 3:02 PM EDT CRP, ACUTE INFLAMMATION Routine 10/30/2023 4:48 AM EDT HEMOGRAM Routine 10/30/2023 4:48 AM EDT DIFFERENTIAL, AUTOMATED Routine 10/30/2023 4:48 AM EDT SEDIMENTATION RATE Routine 10/30/2023 4: 48 AM EDT CBC (WITH DIFF) Routine 10/30/2023 4:48 AM EDT MAGNESIUM Routine 10/30/2023 4:48 AM EDT CK Routine 10/30/2023 4:48 AM EDT BASIC METABOLIC PANEL Routine 10/30/2023 4:48 AM EDT POCT URINE STAT 10/29/2023 10:26 AM EDT HEMOGRAM Routine 10/29/2023 8:37 AM EDT DIFFERENTIAL, AUTOMATED Routine 10/29/2023 8:37 AM EDT LACTATE, WHOLE BLOOD Routine 10/29/2023 8:37 AM EDT CBC (WITH DIFF) Routine 10/29/2023 8:37 AM EDT PHOSPHORUS Routine 10/29/2023 8:37 AM EDT MAGNESIUM Routine 10/29/2023 8:37 AM EDT BASIC METABOLIC PANEL Routine 10/29/2023 8:37 AM EDT URINALYSIS MICROSCOPIC EXAM STAT 10/29/2023 2:33 AM EDT URINALYSIS WITH REFLEX CULTURE STAT 10/29/2023 2:33 AM EDT CRP, ACUTE INFLAMMATION Routine 10/29/2023 2:08 AM EDT SEDIMENTATION RATE Routine 10/29/2023 2: 08 AM EDT PHOSPHORUS Routine 10/29/2023 2:08 AM EDT MAGNESIUM Routine 10/29/2023 2:[address] LUMBAR SPINE WITH CONTRAST STAT 10/28/2023 9:50 PM EDT CRP, ACUTE INFLAMMATION STAT 10/28/2023 9:00 PM EDT HEMOGRAM STAT 10/28/2023 9:00 PM EDT DIFFERENTIAL, AUTOMATED STAT 10/28/2023 9:00 PM EDT SEDIMENTATION RATE STAT 10/28/2023 9: 00 PM EDT CBC (WITH DIFF) STAT 10/28/2023 9:00 PM EDT BASIC METABOLIC PANEL STAT 10/28/2023 9:00 PM EDT documented in [...] the entire procedure. ?? Andrade Melvin MD [facility] IR ORDERABLES * Place PICC Line: Contact Vascular Access Page [phone] Extremity to exclude: No restrictions; Is PICC [...] to the planned procedure. Hand Hygiene: The paper inserter did perform hand hygiene prior to line insertion. Catheter type: PICC Lot number: [id number] Procedure Technique: Skin was prepped with chlorhexidine. [...] Guidance (IV Team) (11/03/2023 11:19 AM EDT) SepSensor WORKSTATION ID [id number] RAD Anatomical Region Laterality Modality N/A Radio [...] who have questions please contact the health memory care program director that requested your imaging first. ? Narrative [...] patients who have questions please contactthe health memory care program director that requested your imaging first. Wally Rosen MD IMG FLUORO ORDERABLE S * Differential, Automated (11/02/2023 5:26 AM EDT) Neutrophil % 69.0 % [facility] Neutrophil Absolute 5.16 1.70 - 6.10 x10(3)/[facility] Lymph % 21.7 % [facility] Lymphocytes Abs 1.6 0.9 - 3.2 x10(3)/[facility] Monocyte % 6.8 % [facility] Monocyte Abs 0.5 0.3 - 0.9 x10(3)/[facility] Eos % 1.6 % [facility] Eosinophils Abs 0.1 0.0 - 0.4 x10(3)/[facility] Basophil % 0.5 % [facility] Baso Absolute 0.0 0.0 - 0.1 x10(3)/[facility] Immature Gran % 0.40 % [facility] Comment: Immature granulocytes(IG's)percentage and absolute count will include metamyelocytes, myelocytes, and promyelocytes. Blood smears from CBCs yielding IG's will be scanned manually for concordance. If this scan disagrees with the automated IG or if promyelocytes are noted, a manual differential will be performed. Immature Gran Absolute 0.03 0.00 - 0.04 x10(3)/[facility] Blood 11/02/2023 5:26 AM EDT 11/02/2023 5:43 AM EDT Narrative Resulting Agency Comment Spec In Lab Wally Rosen MD HEMATOLOGY ORDERABLE S [facility] [place] [address] * (ABNORMAL) Hemogram (11/02/2023 5:26 AM EDT) White Blood Cell 7.5 4.0 - 9.5 x10(3)/mc L [facility] Red Blood Cell 3.89(L) 4.00 - 5.21 x10(6)/mc L [facility] Hemoglobin 11.1(L) 11.7 - 15.5 g/dL [facility] Hematocrit 33.8(L) 35.7 - 45.8 % [facility] Mean Cell Volume 86.9 82.6 - 94.[address] [facility] Mean Cell Hemoglobin 28.5 27.1 - 32.[address] [facility] Mean Cell Hemoglobin Concentration 32.8 31.7 - 35.0 g/dL [facility] Platelet 477(H) 145 - 357 x10(3)/mc L [facility] RDW Standard Deviation 45.1 37.0 - 46.[address] [facility] RDW coefficient of variation 14.3(H) 11.5 - 14.1 % [facility] Mean Platelet Volume 9.1 7.6 - 12.[address] [facility] NRBC% auto 0.0 % [facility] NRBC Absolute 0.000 0.000 - 0.000 x10(3)/mc L [facility] Blood 11/02/2023 5:26 AM EDT 11/02/2023 5:43 AM EDT Narrative Resulting Agency Comment Spec In Lab Wally Rosen MD HEMATOLOGY ORDERABLE S Performing Organization Address [facility] Co de Phone Number [facility] [place] [address] * CK (11/02/2023 5:26 AM EDT) Creatine Kinase 14 0 - 160 unit/L [facility] Blood 11/02/2023 5:26 AM EDT 11/02/2023 5:44 AM EDT Narrative Resulting Agency Comment Spec In Lab Wally Rosen MD CHEMISTRY ORDERABLES Performing Organization Address [facility] de Phone Number [facility] [place] [address] * (ABNORMAL) Comprehensive metabolic panel (non-fasting) (11/02/2023 5:26 AM EDT) Glucose 109 65 - 199 mg/dL [facility] Comment:Diabetes: >=200 mg/d L plus symptoms Blood Urea Nitrogen 13 8 - 18 mg/dL [facility] Comment:result rechecked-mg Creatinine 0.27(L) 0.70 - 1.20 mg/dL [facility] [...] - 107 mmol/L [facility] Carbon Dioxide 21(L) 22 - 31 mmol/L [facility] Anion Gap 13 5 - 15 mmol/L [facility] Calcium 9.8 8.5 - 10.5 mg/dL [facility] Protein, Total 7.2 6.1 - 8.0 g/dL [facility] Albumin 3.5 3.2 - 5.2 g/dL [facility] Aspartate Aminotransferase 13 0 - 30 unit/L [facility] Alanine Aminotransferase 27 0 - 30 unit/L [facility] Alkaline Phosphatase 209(H) 35 - 105 unit/L [facility] Bilirubin, Total <0.2(L) 0.2 - 1.3 mg/dL [facility] Est Glomerular Filtration Rate 150 >=60 mL/min/1. 73 m?? [facility] [...] Rosen MD CHEMISTRY ORDERABLES Performing Organization Address [facility]/ZIP Co de Phone Number [facility] [place] [address] * (ABNORMAL) CRP, acute inflammation (11/02/2023 5:26 AM EDT) Pathologist [facility] C-Reactive Protein 62.8(H) <=4.9 mg/L [facility] Blood 11/02/2023 5:26 AM EDT 11/02/2023 5:44 AM EDT Narrative Resulting Agency Comment Spec In Lab Wally Rosen MD CHEMISTRY ORDERABLES Performing Organization Address [facility] Co de Phone Number [facility] [place] [address] * XR Abdomen 1 view (Generic) (11/01/2023 10:14 PM EDT) [facility] WORKSTATION ID [id number] [facility] Anatomical Region Laterality Modality Abdomen N/A Digital [...] who have questions please contact the health memory care program director that requested your imaging first. ? Narrative [...] patients who have questions please contactthe health memory care program director that requested your imaging first. Electronically signed by: Marisela Estrella MD, [facility]([phone]), at 11/02/2023 8:47 AM Mindy Da Silva APRN IMG DX ORDERABLES * MRSA PCR Screen ([facility]/CGP/APD/NLH) (10/31/2023 6:10 PM EDT) [facility] MRSA PCR Negative Negative [facility] MRSA (Interp) Methicillin-resist ant Staphylococcus aureus (MRSA) is NOT DETECTED The MRSA target DNA sequences (mec and SCC) were not detected within the acceptable ranges using the Xpert MRSA NxG on the GeneXpert Dx System (Mad Mimi). This suggests the absence of MRSA in the patient specimen submitted for testing. This test is cleared by the U.S. Food and Drug Administration for clinical use and its performance characteristics have been verified by the [facility] at [facility]. This result does not rule out the presence of any other organisms. Rare false negative results may occur if MRSA is present at low concentrations with much higher concentrations of other organisms including MRSE or S. aureus with an empty SCC cassette. [facility] Comment: [VERIFIED DATE]11.01.23 Verified By:Marisela Jolly (Electronic Signature) Nasopharyngeal Swab 10/31/19 6:10 PM EDT 11/01/2023 8:24 AM EDT Comment:Specimen Type->Nasop haryngeal Swab Narrative Resulting Agency Comment Spec In Lab Wally Rosen MD MOLECULAR ORDERABLES Performing Organization Address City/State/[facility] Co de Phone Number [facility] [place] [address] * Differential, Automated (10/31/2023 4:47 AM EDT) [facility] Neutrophil % 56.2 % [facility] Neutrophil Absolute 2.93 1.70 - 6.10 x10(3)/[facility] Lymph % 32.1 % [facility] Lymphocytes Abs 1.7 0.9 - 3.2 x10(3)/[facility] Monocyte % 9.0 % [facility] Monocyte Abs 0.5 0.3 - 0.9 x10(3)/[facility] Eos % 1.7 % [facility] Eosinophils Abs 0.1 0.0 - 0.4 x10(3)/[facility] Basophil % 0.8 % [facility] Baso Absolute 0.0 0.0 - 0.1 x10(3)/[facility] Immature Gran % 0.20 % [facility] Comment: Immature granulocytes(IG's)percentage and absolute count will include metamyelocytes, myelocytes, and promyelocytes. Blood smears from CBCs yielding IG's will be scanned manually for concordance. If this scan disagrees with the automated IG or if promyelocytes are noted, a manual differential will be performed. Immature Gran Absolute 0.01 0.00 - 0.04 x10(3)/[facility] Blood 10/31/2023 4:47 AM EDT 10/31/2023 4:55 AM EDT Narrative Resulting Agency Comment Spec In Lab Sharron Winters MD HEMATOLOGY ORDERABLE S Performing Organization Address City/State/[facility] Co de Phone Number [facility] [address] * (ABNORMAL) Hemogram (10/31/2023 4:47 AM EDT) White Blood Cell 5.2 4.0 - 9.5 x10(3)/ L [facility] Red Blood Cell 3.89(L) 4.00 - 5.21 x10(6)/ L [facility] Hemoglobin 11.1(L) 11.7 - 15.5 g/dL [facility] Hematocrit 33.8(L) 35.7 - 45.8 % [facility] Mean Cell Volume 86.9 82.6 - 94.[address] [facility] Mean Cell Hemoglobin 28.5 27.1 - 32.[address] [facility] Mean Cell Hemoglobin Concentration 32.8 31.7 - 35.0 g/dL [facility] Platelet 488(H) 145 - 357 x10(3)/ L [facility] RDW Standard Deviation 45.6 37.0 - 46.[address] [facility] RDW coefficient of variation 14.3(H) 11.5 - 14.1 % [facility] Mean Platelet Volume 9.0 7.6 - 12.[address] [facility] NRBC% auto 0.0 % [facility] NRBC Absolute 0.000 0.000 - 0.000 x10(3)/mc L [facility] Blood 10/31/2023 4:47 AM EDT 10/31/2023 4:55 AM EDT Narrative Resulting Agency Comment Spec In Lab Sharron Winters MD HEMATOLOGY ORDERABLE S Performing Organization Address City/[facility]/ZIP Co de Phone Number [facility] [place] [address] * (ABNORMAL) CRP, acute inflammation (10/31/2023 4:47 AM EDT) C-Reactive Protein 99.2(H) <=4.9 mg/L [facility] Blood 10/31/2023 4:47 AM EDT 10/31/2023 4:55 AM EDT Narrative Resulting Agency Comment Spec In Lab Sharron Winters MD CHEMISTRY ORDERABLES Performing Organization Address City/[facility]/ZIP Co de Phone Number [facility] [place] [address] * (ABNORMAL) Basic Metabolic Panel (non-fasting) (10/31/2023 4:47 AM EDT) Glucose 120 65 - 199 mg/dL [facility] Comment:Diabetes: >=200 mg/d L plus symptoms Blood Urea Nitrogen 8 8 - 18 mg/dL [facility] Creatinine 0.27(L) 0.70 - 1.20 mg/dL [facility] Sodium 140 135 - 145 mmol/L [facility] Potassium 3.8 3.5 - 5.0 mmol/L [facility] Comment: Please note: ??Patients with WBC >100,000 may have falsely elevated Potassium levels. ??For accurate Potassium quantification in these patients send serum separator tube (gold top) for subsequent determinations. ??Contact the Clinical Chemistry Laboratory if there are any questions. Chloride 106 98 - 107 mmol/L [facility] Carbon Dioxide 23 22 - 31 mmol/L [facility] Anion Gap 11 5 - 15 mmol/L [facility] Calcium 9.2 8.5 - 10.5 mg/dL [facility] Est Glomerular Filtration Rate 150 >=60 mL/min/1. 73 m?? [facility] [...] Winters MD CHEMISTRY ORDERABLES Performing Organization Address City/State/[facility] Co de Phone Number [facility] [place] [address] * (ABNORMAL) Sedimentation rate (10/31/2023 4:47 AM EDT) Sedimentation Rate Automated 113(H) 2 - 37 mm/hr [facility] Comment: Effective April 06, 2019 new capillary photometric technology has resulted in a change in reference ranges. It is recommended that each ESR result be reviewed with its own age appropriate reference range. Blood 10/31/2023 4:47 AM EDT 10/31/2023 4:55 AM EDT Narrative Resulting Agency Comment Spec In Lab Sharron Winters MD HEMATOLOGY ORDERABLE S [facility] [place] [address] * Magnesium (10/31/2023 4:47 AM EDT) Magnesium 0.86 0.69 - 1.07 mmol/L [facility] Blood 10/31/2023 4:47 AM EDT 10/31/2023 4:55 AM EDT Narrative Resulting Agency Comment Spec In Lab Sharron Winters MD CHEMISTRY ORDERABLES Performing Organization Address [facility] Co de Phone Number [facility] [place] [address] * IR All Drainage Procedures (10/30/2023 3:23 [...] performed this procedure. ? Sharron Winters MD [facility] [place] ORDERABLES * Anaerobic Culture (10/30/2023 3:02 PM EDT) Anaerobic Culture No anaerobic organisms isolated [facility] Fluid 10/30/2023 3:02 PM EDT 10/30/2023 3:47 PM EDT Comment:Infected seroma/absc ess lower mid posterior presacral region. Fluid culture. Narrative Resulting Agency Comment Spec In Lab Andrade Melvin MD MICROBIOLOGY - GENER AL ORDERABLES [facility] [place] [address] * Body Fluid Culture, Aerobic (10/30/2023 3:02 PM EDT) [facility] Body Fluid Culture Rare mixed bacterial morphotypes suggestive of normal cutaneous zenon [facility] Gram Stain Many Neutrophils seen No microorganisms seen. [facility] Fluid 10/30/2023 3:02 PM EDT 10/30/2023 3:47 PM EDT Comment:Infected seroma/absc ess lower mid posterior presacral region. Fluid culture. Narrative Resulting Agency Comment Spec In Lab Andrade Melvin MD MICROBIOLOGY - GENER AL ORDERABLES [facility] [place] [address] * CK (10/30/2023 4:48 AM EDT) [facility] Creatine Kinase 29 0 - 160 unit/L [facility] Blood Venous Draw / Unknown 10/30/2023 4:48 AM EDT 10/30/2023 5:06 AM EDT Narrative Resulting Agency Comment Spec In Lab Hollie SIMMS CHEMISTRY ORDERABLES [facility] [place] [address] * Differential, Automated (10/30/2023 4:48 AM EDT) Pathologist [facility] Neutrophil % 67.0 % [facility] Neutrophil Absolute 4.61 1.70 - 6.10 x10(3)/[facility] Lymph % 22.3 % [facility] Lymphocytes Abs 1.5 0.9 - 3.2 x10(3)/[facility] Monocyte % 8.2 % [facility] Monocyte Abs 0.6 0.3 - 0.9 x10(3)/[facility] Eos % 1.6 % [facility] Eosinophils Abs 0.1 0.0 - 0.4 x10(3)/[facility] Basophil % 0.6 % [facility] Baso Absolute 0.0 0.0 - 0.1 x10(3)/[facility] Immature Gran % 0.30 % [facility] Comment: Immature granulocytes(IG's)percentage and absolute count will include metamyelocytes, myelocytes, and promyelocytes. Blood smears from CBCs yielding IG's will be scanned manually for concordance. If this scan disagrees with the automated IG or if promyelocytes are noted, a manual differential will be performed. Immature Gran Absolute 0.02 0.00 - 0.04 x10(3)/[facility] Blood 10/30/2023 4:48 AM EDT 10/30/2023 5:01 AM EDT Narrative Resulting Agency Comment Spec In Lab Sharron Winters MD HEMATOLOGY ORDERABLE S [facility] [place] [address] * (ABNORMAL) Hemogram (10/30/2023 4:48 AM EDT) White Blood Cell 6.9 4.0 - 9.5 x10(3)/mc L [facility] Red Blood Cell 3.97(L) 4.00 - 5.21 x10(6)/mc L [facility] Hemoglobin 11.3(L) 11.7 - 15.5 g/dL [facility] Hematocrit 34.8(L) 35.7 - 45.8 % [facility] Mean Cell Volume 87.7 82.6 - 94.[address] [facility] Mean Cell Hemoglobin 28.5 27.1 - 32.[address] [facility] Mean Cell Hemoglobin Concentration 32.5 31.7 - 35.0 g/dL [facility] Platelet 432(H) 145 - 357 x10(3)/mc L [facility] RDW Standard Deviation 45.6 37.0 - 46.0 [facility] RDW coefficient of variation 14.3(H) 11.5 - 14.1 % [facility] Mean Platelet Volume 9.3 7.6 - 12.9 [facility] NRBC% auto 0.0 % [facility] NRBC Absolute 0.000 0.000 - 0.000 x10(3)/mc L [facility] Blood 10/30/2023 4:48 AM EDT 10/30/2023 5:01 AM EDT Narrative Resulting Agency Comment Spec In Lab Sharron Winters MD HEMATOLOGY ORDERABLE S Performing Organization Address City/[facility]/ZIP Co de Phone Number [facility] [place] [address] * (ABNORMAL) CRP, acute inflammation (10/30/2023 4:48 AM EDT) C-Reactive Protein 120.3(H) <=4.9 mg/L [facility] Comment:result rechecked-KS Blood 10/30/2023 4:48 AM EDT 10/30/2023 5:01 AM EDT Narrative Resulting Agency Comment Spec In Lab Sharron Winters MD CHEMISTRY ORDERABLES Performing Organization Address City/[facility]/ZIP Co de Phone Number [facility] [place] [address] * (ABNORMAL) Basic Metabolic Panel (non-fasting) (10/30/2023 4:48 AM EDT) Glucose 113 65 - 199 mg/dL [facility] Comment:Diabetes: >=200 mg/d L plus symptoms Blood Urea Nitrogen 7(L) 8 - 18 mg/dL [facility] Creatinine 0.33(L) 0.70 - 1.20 mg/dL [facility] Sodium 136 135 - 145 mmol/[facility] [...] - 107 mmol/L [facility] Carbon Dioxide 23 22 - 31 mmol/L [facility] Anion Gap 11 5 - 15 mmol/L [facility] Calcium 9.3 8.5 - 10.5 mg/dL [facility] Est Glomerular Filtration Rate 143 >=60 mL/min/1. 73 m?? [facility] [...] In Lab Sharron Winters MD CHEMISTRY ORDERABLES [facility] [place] [address] * (ABNORMAL) Sedimentation rate (10/30/2023 4:48 AM EDT) Sedimentation Rate Automated 103(H) 2 - 37 mm/hr [facility] Comment: Effective April 06, 2019 new capillary photometric technology has resulted in a change in reference ranges. It is recommended that each ESR result be reviewed with its own age appropriate reference range. Blood 10/30/2023 4:48 AM EDT 10/30/2023 5:01 AM EDT Narrative Resulting Agency Comment Spec In Lab Sharron Winters MD HEMATOLOGY ORDERABLE S [facility] [place] [address] * Magnesium (10/30/2023 4:48 AM EDT) Pathologist [facility] Magnesium 0.89 0.69 - 1.07 mmol/L [facility] Blood 10/30/2023 4:48 AM EDT 10/30/2023 5:01 AM EDT Narrative Resulting Agency Comment Spec In Lab Sharron Winters MD CHEMISTRY ORDERABLES Performing Organization Address City/[facility] Co de Phone Number [facility] [place] [address] * POCT urine (10/29/2023 10:26 AM EDT) [facility] POC Urine HCG Negative POC Control Internal Controls Acceptable 10/29/2023 10:2 6 AM EDT Sharron Winters MD POINT OF CARE TEST O RDERABLES * (ABNORMAL) Differential, Automated (10/29/2023 8:37 AM EDT) Neutrophil % 74.9 % [facility] Neutrophil Absolute 6.45(H) 1.70 - 6.10 x10(3)/mc L [facility] Lymph % 16.8 % [facility] Lymphocytes Abs 1.4 0.9 - 3.2 x10(3)/mc L [facility] Monocyte % 6.1 % [facility] Monocyte Abs 0.5 0.3 - 0.9 x10(3)/mc L [facility] Eos % 1.3 % [facility] Eosinophils Abs 0.1 0.0 - 0.4 x10(3)/ L [facility] Basophil % 0.6 % [facility] Baso Absolute 0.0 0.0 - 0.1 x10(3)/ L [facility] Immature Gran % 0.30 % [facility] Comment: Immature granulocytes(IG's)percentage and absolute count will include metamyelocytes, myelocytes, and promyelocytes. Blood smears from CBCs yielding IG's will be scanned manually for concordance. If this scan disagrees with the automated IG or if promyelocytes are noted, a manual differential will be performed. Immature Gran Absolute 0.03 0.00 - 0.04 x10(3)/ L [facility] Blood 10/29/2023 8:37 AM EDT 10/29/2023 8:47 AM EDT Narrative Resulting Agency Comment Spec In Lab Brennan Maldonado MD HEMATOLOGY ORDERABL ES [facility] [place] [address] * (ABNORMAL) Hemogram (10/29/2023 8:37 AM EDT) White Blood Cell 8.6 4.0 - 9.5 x10(3)/mc L [facility] Red Blood Cell 3.98(L) 4.00 - 5.21 x10(6)/mc L [facility] Hemoglobin 11.2(L) 11.7 - 15.5 g/dL [facility] Hematocrit 33.8(L) 35.7 - 45.8 % [facility] Mean Cell Volume 84.9 82.6 - 94.[address] [facility] Mean Cell Hemoglobin 28.1 27.1 - 32.[address] [facility] Mean Cell Hemoglobin Concentration 33.1 31.7 - 35.0 g/dL [facility] Platelet 477(H) 145 - 357 x10(3)/ L [facility] RDW Standard Deviation 44.0 37.0 - 46.[address] [facility] RDW coefficient of variation 14.1 11.5 - 14.1 % [facility] Mean Platelet Volume 9.3 7.6 - 12.[address] [facility] NRBC% auto 0.0 % [facility] NRBC Absolute 0.000 0.000 - 0.000 x10(3)/mc L [facility] Blood 10/29/2023 8:37 AM EDT 10/29/2023 8:47 AM EDT Narrative Resulting Agency Comment Spec In Lab Brennan Maldonado MD HEMATOLOGY ORDERABL ES Performing Organization Address [facility]/ZIP Co de Phone Number [facility] [place] [address] * Lactate, whole blood, send to lab ([facility] (10/29/2023 8:37 AM EDT) Lactate WB 1.8 0.5 - 2.2 mmol/L [facility] Blood 10/29/2023 8:37 AM EDT 10/29/2023 8:47 AM EDT Narrative Resulting Agency Comment Spec In Lab Brennan Maldonado MD CHEMISTRY ORDERABLE S Performing Organization Address City/[facility]/ZIP Co de Phone Number [facility] [place] [address] * Phosphorus (10/29/2023 8:37 AM EDT) Phosphorus 3.6 2.5 - 4.5 mg/dL [facility] Blood 10/29/2023 8:37 AM EDT 10/29/2023 8:47 AM EDT Narrative Resulting Agency Comment Spec In Lab Brennan Maldonado MD CHEMISTRY ORDERABLE S [facility] [place] [address] * Magnesium (10/29/2023 8:37 AM EDT) Magnesium 0.94 0.69 - 1.07 mmol/L [facility] Blood 10/29/2023 8:37 AM EDT 10/29/2023 8:47 AM EDT Narrative Resulting Agency Comment Spec In Lab Brennan Maldonado MD CHEMISTRY ORDERABLE S [facility] [place] [address] * (ABNORMAL) Basic Metabolic Panel (non-fasting) (10/29/2023 8:37 AM EDT) Glucose 96 65 - 199 mg/dL [facility] Comment:Diabetes: >=200 mg/d L plus symptoms Blood Urea Nitrogen 6(L) 8 - 18 mg/dL [facility] Creatinine 0.31(L) 0.70 - 1.20 mg/dL [facility] Sodium 140 135 - 145 mmol/L [facility] Potassium 4.2 3.5 - 5.0 mmol/L [facility] Comment: Please note: ??Patients with WBC >100,000 may have falsely elevated Potassium levels. ??For accurate Potassium quantification in these patients send serum separator tube (gold top) for subsequent determinations. ??Contact the Clinical Chemistry Laboratory if there are any questions. Chloride 103 98 - 107 mmol/L [facility] Carbon Dioxide 26 22 - 31 mmol/L [facility] Anion Gap 11 5 - 15 mmol/L [facility] Calcium 9.4 8.5 - 10.5 mg/dL [facility] Est Glomerular Filtration Rate 145 >=60 mL/min/1. 73 m?? [facility] MD CHEMISTRY ORDERABLE S Performing Organization Address [facility] Co de Phone Number [facility] [place] [address] * (ABNORMAL) Urinalysis Microscopic Exam (10/29/2023 2:33 AM EDT) RBC, Urine >100(H) 0 - 4 /HPF [facility] WBC, Urine 4 0 - 5 /HPF [facility] Squamous Epithelial Cells Raw Data, Urine 4 <=4 /HPF [facility] Hyaline Casts, Urine <1 0 - 2 /LPF [facility] Comment: Interpret results with caution, microscopic results are from suboptimal specimen volume Straight Catheter Urine 10/29/2023 2:33 AM EDT 10/29/2023 2:43 AM EDT Narrative Resulting Agency Comment Spec In Lab Sharron Winters MD URINE ORDERABLES Performing Organization Address [facility]/ZIP Co de Phone Number [facility] [place] [address] * (ABNORMAL) Urinalysis with reflex Culture (10/29/2023 2:33 AM EDT) Glucose, Urine Dipstick Negative Negative mg/dL [facility] Protein, Urine Dipstick 30(A) Negative mg/dL [facility] Bilirubin, Urine Dipstick Negative Negative mg/dL [facility] Comment: Clinical correlation required for positive Urine Bilirubin results as false positive may occur with some drugs and drug related products. If a false positive is suspected a serum total bilirubin should be considered if clinically indicated. Urobilinogen, Urine Dipstick Normal Normal mg/dL [facility] pH, Urn (dipstick) 6.5 5.0 - 8.0 [facility] Blood, Urine Dipstick Large(A) Negative mg/dL [facility] Ketone, Urine Dipstick Negative Negative mg/dL [facility] Nitrite, Urine Dipstick Negative Negative [facility] Leukocytes, Urine Dipstick Negative Negative [facility] Appearance, Urine Dipstick Clear Clear [facility] Specific Johnson Urine Automated >=1.030(A) 1.005 - 1.030 [facility] Color, Urine Dipstick Yellow Yellow [facility] Reflex to Culture No [facility] Straight Catheter Urine 10/29/2023 2:33 AM EDT 10/29/2023 2:43 AM EDT Narrative Resulting Agency Comment Spec In Lab Sharron Winters MD URINE ORDERABLES Performing Organization Address City/[facility]/ZIP Co de Phone Number [facility] [place] [address] * (ABNORMAL) CRP, acute inflammation (10/29/2023 2:08 AM EDT) C-Reactive Protein 133.4(H) <=4.9 mg/L [facility] Blood 10/29/2023 2:08 AM EDT 10/29/2023 2:33 AM EDT Narrative Resulting Agency Comment Spec In Lab Sharorn Winters MD CHEMISTRY ORDERABLES Performing Organization Address City/[facility]/ZIP Co de Phone Number [facility] [place] [address] * Phosphorus (10/29/2023 2:08 AM EDT) Phosphorus 3.1 2.5 - 4.5 mg/dL [facility] Blood 10/29/2023 2:08 AM EDT 10/29/2023 2:33 AM EDT Narrative Resulting Agency Comment Spec In Lab Sharron Winters MD CHEMISTRY ORDERABLES Performing Organization Address City/[facility] Co de Phone Number [facility] [place] [address] * (ABNORMAL) Sedimentation rate (10/29/2023 2:08 AM EDT) [facility] Sedimentation Rate Automated >119(H) 2 - 37 mm/hr [facility] [...] MD HEMATOLOGY ORDERABLE S Performing Organization Address [facility] Co de Phone Number [facility] [place] [address] * Magnesium (10/29/2023 2:08 AM EDT) Magnesium 0.85 0.69 - 1.07 mmol/L [facility] Blood 10/29/2023 2:08 AM EDT 10/29/2023 2:33 AM EDT Narrative Resulting Agency Comment Spec In Lab Sharron Winters MD CHEMISTRY ORDERABLES Performing Organization Address [facility] Co de Phone Number [facility] [place] [address] * CT Lumbar Spine w Contrast (10/28/2023 9:50 PM EDT) WORKSTATION ID [id number] RAD Anatomical Region Laterality Modality L-spine Computed [...] who have questions please contact the health memory care program director that requested your imaging first. ? Narrative [...] patients who have questions please contactthe health memory care program director that requested your imaging first. Siomara Hernandez MD [facility] [place] ORDERABLES * Differential, Automated (10/28/2023 9:00 PM EDT) Neutrophil % 66.3 % [facility] Neutrophil Absolute 5.75 1.70 - 6.10 x10(3)/[facility] LAB[facility] Lymph % 24.1 % [facility] Lymphocytes Abs 2.1 0.9 - 3.2 x10(3)/[facility] Monocyte % 7.2 % [facility] Monocyte Abs 0.6 0.3 - 0.9 x10(3)/[facility] Eos % 1.4 % [facility] Eosinophils Abs 0.1 0.0 - 0.4 x10(3)/[facility] Basophil % 0.5 % [facility] Baso Absolute 0.0 0.0 - 0.1 x10(3)/[facility] Immature Gran % 0.50 % [facility] Comment: Immature granulocytes(IG's)percentage and absolute count will include metamyelocytes, myelocytes, and promyelocytes. Blood smears from CBCs yielding IG's will be scanned manually for concordance. If this scan disagrees with the automated IG or if promyelocytes are noted, a manual differential will be performed. Immature Gran Absolute 0.04 0.00 - 0.04 x10(3)/[facility] Blood 10/28/2023 9:00 PM EDT 10/28/2023 9:17 PM EDT Narrative Resulting Agency Comment Spec In Lab Esteban King [employer] HEMATOLOGY ORDERABLE S [facility] [place] [address] * (ABNORMAL) Hemogram (10/28/2023 9:00 PM EDT) White Blood Cell 8.7 4.0 - 9.5 x10(3)/ L [facility] Red Blood Cell 4.28 4.00 - 5.21 x10(6)/mc L [facility] Hemoglobin 11.9 11.7 - 15.5 g/dL [facility] Hematocrit 36.5 35.7 - 45.8 % [facility] Mean Cell Volume 85.3 82.6 - 94.[address] [facility] Mean Cell Hemoglobin 27.8 27.1 - 32.[address] [facility] Mean Cell Hemoglobin Concentration 32.6 31.7 - 35.0 g/dL [facility] Platelet 525(H) 145 - 357 x10(3)/[facility] LABORATORY RDW Standard Deviation 43.8 37.0 - 46.0 [facility] RDW coefficient of variation 14.2(H) 11.5 - 14.1 % [facility] Mean Platelet Volume 9.2 7.6 - 12.[address] [facility] NRBC% auto 0.0 % [facility] NRBC Absolute 0.000 0.000 - 0.000 x10(3)/ L [facility] Blood 10/28/2023 9:00 PM EDT 10/28/2023 9:17 PM EDT Narrative Resulting Agency Comment Spec In Lab Esteban King APRN HEMATOLOGY ORDERABLE S [facility] [place] [address] * (ABNORMAL) CRP, acute inflammation (10/28/2023 9:00 PM EDT) Pathologist [facility] C-Reactive Protein 148.3(H) <=4.9 mg/L [facility] Blood 10/28/2023 9:00 PM EDT 10/28/2023 9:17 PM EDT Narrative Resulting Agency Comment Spec In Lab Esteban King APRN CHEMISTRY ORDERABLES Performing Organization Address [facility] Co de Phone Number [facility] [place] [address] * (ABNORMAL) Sedimentation rate (10/28/2023 9:00 PM EDT) Pathologist [facility] Sedimentation Rate Automated >119(H) 2 - 37 mm/hr [facility] Comment: Effective April 06, 2019 new capillary photometric technology has resulted in a change in reference ranges. It is recommended that each ESR result be reviewed with its own age appropriate reference range. Blood 10/28/2023 9:00 PM EDT 10/28/2023 9:17 PM EDT Narrative Resulting Agency Comment Spec In Lab Esteban Levycoa [employer] WORKER HEMATOLOGY ORDERABLE S Performing Organization Address [facility] de Phone Number [facility] [place] [address] * (ABNORMAL) Basic Metabolic Panel (non-fasting) (10/28/2023 9:00 PM EDT) [facility] Glucose 88 65 - 199 mg/dL [facility] Comment:Diabetes: >=200 mg/d L plus symptoms Blood Urea Nitrogen 7(L) 8 - 18 mg/dL [facility] LABORATORY Creatinine 0.25(L) 0.70 - 1.20 mg/dL [facility] Sodium 137 135 - 145 mmol/L [facility] Potassium Not Perf 3.5 - 5.0 [facility] Comment: Unable to quantitate due [...] - 107 mmol/L [facility] Carbon Dioxide 25 22 - 31 mmol/L [facility] Anion Gap 10 5 - 15 mmol/L [facility] Calcium 9.4 8.5 - 10.5 mg/dL [facility] Est Glomerular Filtration Rate 153 >=60 mL/min/1. 73 m?? [facility] [...] In Lab Esteban King APRN CHEMISTRY ORDERABLES [facility] [place] [address] documented in this encounter Visit Diagnoses Diagnosis Abscess- Primary Cellulitis and abscess of unspecified site Abscess Cellulitis and abscess of unspecified site Spinal abscess Acute osteomyelitis, other specified site Abscess Cellulitis and abscess of unspecified site documented in this encounter Admitting Diagnoses [...] Dose rounded per P[employer] policy, Routine New 11/01/2023 9:01 PM EDT 450 mg 118 [...] mL/hr, Intravenous, ONCE, 1 dose, On Dianne 10/29/23 at 0755 New Bag 10/29/2023 8:44 AM EDT 500 mL/hr lactated Ringers 500 mL IV bolus at 250 mL/hr, Intravenous, ONCE, 1 dose, On Dianne 10/29/23 at 1151 Continued Bag 10/29/2023 11:51 AM [...] Dianne 10/29/23 at 0102, Until Discontinued, Routine Given 11/02/2023 [...] Discontinued, Routine 0951 (Given - Provider: Maryana Cottrell RN)1331 (Given - Provider: Muriel Sanchez RN)2101 (Given - Provider: Arielle Contreras RN) 0833 [...] past, Indication for (Active or Suspected): Bone/Joint 171 (New Bag - Provider: Maryana Cottrell RN)1740 (Stopped - Provider: Maryana Cottrell RN) 171 (New Bag - Provider: Maryana Cottrell RN)1743 [...] on Thu10/29/23 at 0900, Until Discontinued, Routine 0952 (Given - Provider: Maryana Cottrell RN) 0833 [...] Routine 0952 (Given - Provider: Maryana Cottrell RN)213 (Given - Provider: Arielle Contreras RN) 08 [...] PRN, Starting on 10/31/23 at 1831, Until Tu11/03/23 at 1925, Pain, Maximum dose of acetaminophen is 4,000 mg from all sources in 24 hours. When ordered for pain, acetaminophen should be given even when other ordered pain medications are indicated., Routine 951 (Given - Provider: Maryana Cottrell RN)1445 (Given - Provider: Muriel Sanchez RN)2130 (Given - Provider: Arielle Contreras RN) 0432 (Given - Provider: Arielle Contreras RN)832 (Given [...] Oral, 2 TIMES DAILY PRN, Starting on 11/02/23 at 0833, Until Tu11/03/23 at 1925, Constipation, Give if no BM after 24 hr after prior interventions. BM expected in 6-8 hours. If BM desired sooner, use next ordered agent. Give concomitantly with any scheduled bowel medications ordered., Routine lactulose (Chronulac) (0.67 gram/mL) oral liquid 20 g(Linked Group 1) 20 g, Oral, DAILY PRN, Starting on 11/02/23 at 0833, Until Thu11/03/23 at 192, Constipation, Give if no BM 24 hr after prior interventions or if BM is desired within 2 hr. Give concomitantly with any scheduled bowel medications ordered, Routine lactulose (Chronulac) (0.67 gram/mL) oral liquid 20 g(Linked Group 1) 20 g, Oral, DAILY PRN, Starting on Thu11/02/23 at 0833, Until Thu11/03/23 at 192, Constipation, Give an additional (2nd) dose of lactulose 2 hr after 1st dose if still no BM. Disregard if 1st dose of lactulose not ordered. Give concomitantly with any scheduled bowel medications ordered. , Routine lidocaine (Xylocaine) 1% (10 mg/mL) injection 3 mg 3 mg (0.3 mL), Subcutaneous, ONCE PRN, 1 dose, Starting on Thu10/29/23 at 0100, Until Thu11/03/23 at 192, for discomfort with PIV insertion, Routine magnesium citrate oral liquid 296 mL(Linked Group 1) 296 mL, Oral, ONCE PRN, 1 dose, Starting on Thu11/02/23 at 0833, Until Thu11/03/23 at 192, Constipation, Give if no BM 2 hr [...] on Thu11/02/23 at 0833, Until Thu11/03/23 at 1924, Constipation, Give if no BM after 24 hr after prior interventions. BM expected in 6-8 hours. If BM desired sooner, use next ordered agent. Give concomitantly with any scheduled bowel medications ordered., Routine And lactulose (Chronulac) (0.67 gram/mL) oral liquid 20 gJump to med 20 g, Oral, DAILY PRN, Starting on Thu11/02/23 at 0833, Until Thu11/03/23 at 192, Constipation, Give if no BM 24 hr after prior interventions or if BM is desired within 2 hr. Give concomitantly with any scheduled bowel medications ordered, Routine And lactulose (Chronulac) (0.67 gram/mL) oral liquid 20 gJump to med 20 g, Oral, DAILY PRN, Starting on Thu11/02/23 at 0833, Until Thu11/03/23 at 192, Constipation, Give an additional (2nd) dose of [...] ordered. documented in this encounter Care Teams Gas Scrubber Operator Relationship Specialty Start Date End Date Lorna Bal, [place] [address] [place] [address] PCP - General Family Medicine 05/27/18 documented as of this encounter
--- OUTSIDE RECORDS SUMMARY | 2023-12-04 12:35 | XMS_ITS | Encounter Summary ---
Author Organization Replaced By [facility] Address [facility] [place] [address] Care Team Providers Care Carpenter Form Name Role Phone Lorna Bal APRN Primary Care Provider +1 [phone] Encounter Details Date Type Department Care Team (Late st Contact Info) Description 10/28/2023 Telephone [place] [address] Neva Thorpe, RN Social History Tobacco Use Types Packs/Day Years Used Date Smoking Tobacco: Never Passive Smoke Exposure: Never Smokeless Tobacco: Never Comments:NO SMOKERS IN THE H OME Alcohol Use Standard Drinks/Week Comments No 0 (1 standard drink = 0.6 oz pur e alcohol) [facility] Utilities Answer Date Recorded In the past 12 months has e [employer], gas, oil, or water [employer] threatened to shut off services in your [...] any time in the past 12 m [facility], were you homeless or living [...] back ot to Fannie: Labs drawn at [facility] today-waiting for results Area still on her [...] about Fannie being the contact on the [facility] portal. 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 Plan: Fannie will call back once she has the lab results. Will call to schedule CT Scan. Fannie understands that the department is closed tomorrow for the holiday. This RN explained how to reach the provider relocation associate if necessary. Will review with Dr Hollie Ambriz 10/28/2023 1634 [facility] faxing labs over. Fannie states she is bringing Tana into the ER here at to be evaluated. Dr Ambriz updated documented in this encounter Plan of Treatment Upcoming Encounters Date Type Department Care Team (Late st Contact Info) Description 06/02/2024 12:30 PM EST Office [place] [address] Hollie Ambriz MD [facility] [place] [address] documented as of this encounter Visit Diagnoses Not on filedocumented in this encounter Care Teams Carpenter Form Relationship Specialty Start Date End Date Lorna Bal APRN [address] [place] [address] PCP - General Family Medicine 05/27/18 documented as of this encounter
--- OUTSIDE RECORDS SUMMARY | 2023-12-04 12:35 | XMS_ITS | Encounter Summary ---
Author Organization [facility] Address [facility] [place] [address] Care Team Providers Care Staff Psychologist Name Role Phone Lorna Bal APRN Primary Care Provider +1 [phone] Encounter Details Date Type Department Care Team (Latest Contact Info) Description 07/02/2023 11:00 AM EST TH Visit (TeleHealth) [place] [phone] George Tipton MD [facility] CRIT[place] [address] Spinal abscess; halfway 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 Social History Tobacco Use Types Packs/Day Years Used Date Smoking Tobacco: Never Smokeless Tobacco: Never Comments:NO SMOKERS IN THE H OME Alcohol Use Standard Drinks/Week Comments No 0 (1 standard drink = 0.6 oz pur e alcohol) [facility] Inpatient Questions Answer Date Recorded Does Anyone [...] remained on bactrim. Followed up with in [place]. MRI was not possible sec. To hardware. CRP/ESR was trending upwards. NSG referred her to [facility] for surgery. The patient went to [...] liquefied hematoma or abscess. Neurosurgeon recommended continuing usp suppressive antibiotics. Subjective: We called and talked [...] Tipton MD Infectious Diseases Fellow- [id number] Pager: [phone] 07/01/2023 5:26 PM Plan discussed with Dr. Nikolay Toledo This note was created using [employer]) voice recognition software. * Nikolay Toledo MD [...] I am not in favor of continuing usp suppressive antibiotics. 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
--- OUTSIDE RECORDS SUMMARY | 2023-12-04 12:35 | XMS_ITS | Encounter Summary ---
Author Organization [facility] Address [facility] [place] [address] Care Team Providers Care Cat Sitter Name Role Phone Lorna Bal APRN Primary Care Provider +1 [phone] Encounter Details Date Type Department Care Team (Late st Contact Info) Description 10/28/2023 Telephone [place] [address] Neva Thorpe, RN Social History Tobacco Use Types Packs/Day Years Used Date Smoking Tobacco: Never Passive Smoke Exposure: Never Smokeless Tobacco: Never Comments:NO SMOKERS IN THE H OME Alcohol Use Standard Drinks/Week Comments No 0 (1 standard drink = 0.6 oz pur e alcohol) [facility] Utilities Answer Date Recorded In the past 12 months has e [employer], gas, oil, or water [employer] threatened to shut off services in your [...] time in the past 12 m [facility], were you homeless or living [...] PM EST Office [place] [phone] Hollie Ambriz MD [facility] [place] [address] documented as of this encounter Visit Diagnoses Not on filedocumented in this encounter Care Teams Cat Sitter Relationship Specialty Start Date End Date Lorna Bal APRN [address] [place] [address] PCP - General Family Medicine 05/27/18 documented as of this encounter
--- OUTSIDE RECORDS SUMMARY | 2023-12-04 12:35 | XMS_ITS | Encounter Summary ---
Author Organization [facility] Address [facility] [place] [address] Care Team Providers Care Power Line Installer Name Role Phone Lorna Bal APRN Primary Care Provider +1 -[phone] Encounter Details Date Type Department Care Team (Late st Contact Info) Description 04/29/2023 Notes [place] [phone] George Tipton MD [facility] [place] [address] Social History Tobacco Use Types Packs/Day Years [...] from 04/[address] Augustin(Neurosurgeon, [facility]) and talked to director of medical services. According to her the surgeon reviewed the [...] PM EST Office [place] [address] Hollie Ambriz MD [facility] [place] [address] documented as of this encounter Visit Diagnoses Not on filedocumented in this encounter Care Teams Power Line Installer Relationship Specialty Start Date End Date Lorna Bal APRN [address] [place] [address] PCP - General Family Medicine 05/27/18 documented as of this encounter
--- OUTSIDE RECORDS SUMMARY | 2023-12-04 12:35 | XMS_ITS | Encounter Summary ---
[place] [address] Care Team Providers Care Relay Checker Name Role Phone Lorna Bal APRN Primary Care Provider +1 [phone] Reason for Referral * Occupational Therapy (Routine) - Closed Specialty Diagnoses / Procedures Referred By Contmonica t Referred To Contact Occupational Therapy Diagnoses Chronic pain of right thumb Lucho Foster MD [facility] [place] [address] [facility] [place] [address] Referral ID Status Reason Start Date Expiration Date V isits Requested Visits Authorized [id number] Closed Consult Only 09/29/2023 09/28/2024 30 30 * Physical Therapy (Routine) - Authorized Specialty Diagnoses / Procedures Referred By Contac t Referred To Contact Physical Therapy Diagnoses Chronic pain of right thumb Lucho Foster MD [facility] [place] [address] Referral ID Status Reason Start Date Expiration Date Visits Requested Visits Authorized [id number] Authorized Evaluate and Treat 09/29/2023 03/27/2024 12 12 Reason for Visit * Reason Comments Establish Care CONTRACTURE OF R VIKAS MB NO KNOWN INJURY Hx OF RELEASE DOS: ([facility] [place] * Consultation (Routine) - Authorized Specialty Diagnoses / Procedures Referred By Contac t Referred To Contact Orthopaedics Diagnoses Contracture of joint of hand, 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 Lorna Bal APRN [address] [place] [address] [facility] [place] [place] [facility] [address] [place] [phone] Referral ID Status Reason Start Date Expiration Date Visits Requested Visits Authorized [id number] Authorized Consult, Test & Treat PCP Updated and/or Approved 08/03/2023 08/02/2024 6 6 Encounter Details Date Type Department Care Team (Latest Contact Info) Description 09/29/2023 10:30 AM EDT Office [place] [address] Chuckie Mayfield MD [facility] DR [place] [address] Chronic pain of right thumb; [...] NO KNOWN INJURY Hx OF RELEASE DOS: ([facility]) [place]RISTELA Date of injury: N/A History of [...] day). Living situation: dual housing with two director multimedia caregivers. Fannie is Guardian. Thumb in palm [...] [Transparent Dressings] Itching and Dermatitis Please use [id number] Cyclobenzaprine Other Reaction(s): Not available Doxycycline Other (See Comments) Cough, rash Penicillins Social history: Social History Tobacco Use Smoking status: Never Passive exposure: Never Smokeless tobacco: Never Tobacco comments: NO SMOKERS IN THE HOME Substance Use Topics Alcohol use: No Occupation: disabled Questionnaire Responses: 03/18/2019 [facility] Postop Visit PROMIS-10 General Health Very [...] PM EST Office [place] [address] Hollie Ambriz MD [facility] [place] [address] Scheduled Referrals Name Type Priority Associated Diagnoses [...] unspecified documented in this encounter Care Teams Relay Checker Relationship Specialty Start Date End Date Lorna Bal, FUEL TRUCK DRIVER [address] [place] [address] PCP - General Family Medicine 05/27/18 documented as of this encounter
--- OUTSIDE RECORDS SUMMARY | 2023-12-04 12:35 | XMS_ITS | Encounter Summary ---
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 Lorna Bal APRN [address] [place] [address] [facility] [address] [place] [phone] Referral ID Status Reason Start Date Expiration Date Visits Requested Visits Authorized [id number] Authorized Consult, Test & Treat PCP Updated and/or Approved 08/03/2023 08/02/2024 6 6 Encounter Details Date Type Department Care Team (Latest Contact Info) Description 08/03/2023 Transcribe Orders eDH Incoming Referrals [phone] Lorna Bal APRN [address] [place] [address] Contracture of joint of hand, unspecified laterality [...] PM EST Office Visit [place] [address] Hollie Ambriz MD [facility] [place] [address] Scheduled Referrals Name Type Priority Associated Diagnoses Orde r Schedule Referral to Orthopaedics Outpatient Referral Routine Contracture of joint of hand, unspecified laterality Ordered: 08/03/2023 documented as of this encounter Visit Diagnoses Diagnosis Contracture of joint of hand, unspecified laterality documented in this encounter Care Teams Cvt Tech Relationship Specialty Start Date End Date Lorna Bal APRN [address] [place] [address] PCP - General Family Medicine 05/27/18 documented as of this encounter
--- OUTSIDE RECORDS SUMMARY | 2023-12-04 12:35 | XMS_ITS | Encounter Summary ---
Author Organization [facility] [place] [address] Care Team Providers Care Property Insurance Inspector Name Role Phone Lorna Bal APRN Primary Care Provider +1 -[phone] Encounter Details Date Type Department Care Team (Latest Contact Info) Description 08/24/2023 9:00 AM EDT TH Visit (TeleHealth) [place] [phone] Samantha Crystal APRN [facility] [place] [address] Constipation, unspecified constipation type Social History Tobacco [...] this encounter Progress Notes * Samantha Crystal, GROUP FITNESS DEPARTMENT HEAD - 08/24/2023 9:00 AM EDT Gastroenterology Follow Up Telehealth Note Ms. Tana Cavazos is a 28 y.o. female who presents to the section of Gastroenterology for follow upfor constipation. Interval Update: -Here today with Fernanda her corporate strategist. -Since her colonoscopy her bowels have been [...] stomach discomfort. She is being followed in [place] after hospital stay for a spinal infection. [...] Drainage Procedures 06/25/[address] [facility] INTERVENTIONL RAD IR ALL DRAINAGE PROCEDURES 07/04/2022 IR All Drainage Procedures 07/04/[address] [facility] INTERVENTIONL RAD IR ALL DRAINAGE PROCEDURES 07/24/2022 IR All Drainage Procedures 07/24/[address] [facility] INTERVENTIONL RAD IR ALL DRAINAGE PROCEDURES 09/26/2022 IR All Drainage Procedures 09/26/2022 Jamaal Jenkins, DO [facility] INTERVENTIONL RAD IR DRAIN CHECK/CHANGE/REMOVE 07/01/2022 IR Drain Check/Change/Remove 07/01/2022 Jamaal Jenkins, DO [facility] INTERVENTIONL RAD IR DRAIN CHECK/CHANGE/REMOVE 08/11/2022 IR Drain Check/Change/Remove 08/11/[address] [facility] INTERVENTIONL RAD IR DRAIN CHECK/CHANGE/REMOVE 08/25/2022 IR Drain Check/Change/Remove 08/25/2022 Jamaal Jenkins, DO [facility] INTERVENTIONL RAD IR DRAIN CHECK/CHANGE/REMOVE 09/10/2022 IR Drain Check/Change/Remove 09/10/[address] [facility] INTERVENTIONL RAD PRO APPLY OF HIP CASTS, TWO LEGS 08/15/2010 CAST APPLICATION, HIP SPICA, BOTH LEGS performed by BARRERA OLIVER at [facility] MAIN OR PRO COLONOSCOPY, BIOPSY N/A 08/05/2023 COLONOSCOPY FLEXIBLE, WITH BX (WRVU 3.56) performed by Jamar Gastelum MD at [facility] ENDOSCOPY PRO I&D, POST SPINE, LUMB/SACR/LUMBOSAC N/A 05/20/2014 @I & D, OPEN, DEEP ABSCESS, LUMBAR, SACRAL, LUMBOSACRAL performed by Freddy Isbell MD at [facility] MAIN OR PRO I&D, POST SPINE, LUMB/SACR/LUMBOSAC N/A 05/26/2014 @I & D, OPEN, DEEP ABSCESS, LUMBAR, SACRAL, LUMBOSACRAL performed by Freddy Isbell MD at [facility] MAIN OR PRO IMPACT TOOTH REMOV COMP BONY N/A 06/14/2018 SURGICAL EXTRACTIONS, REMOVAL OF IMPACTED TOOTH, COMPLETELY BONY (WRVU 1.93) performed by Keith Cotton MD at [facility] OSC PRO OSTEOTOMY FEMUR SHAFT/SUPRACONDY 08/15/2010 ??OSTEOTOMY, FEMUR SHAFT OR SUPRACONDYLAR W/O FIXATION performed by BARRERA OLIVER at [facility] OR PRO RECONSTRUC HIP SOCKET, RESEC FEM HEAD 08/15/2010 ??ACETABULOPLASTY (GIRDLESTONE), RESECTION FEMORAL HEAD, BILATERAL performed by BARRERA OLIVER [facility] MAIN OR PRO REMOVAL DEEP IMPLANT 08/15/2010 REMOVAL IMPLANT, DEEP, BRUNO performed by BARRERA OLIVER at [facility] MAIN OR PRO REMOVAL ERUPTED TOOTH WITH ELEVATION OF MUCOPERIOSTEAL FLAP N/A 06/14/2018 SURGICAL EXTRACTIONS REQUIRING ELEVATION OF MUCOPERIOSTEAL FLAP AND REMOVAL OF BONE OR SECTION OF TOOTH (WRVU 1.09) performed by Keith Cotton MD at [facility] OSC PRO REMOVE INFUSN DEVICE/PUMP N/A 05/11/2014 REMOVAL OF SPINE INFUSION PUMP performed by Jamaal Samuel MD at [facility] MAIN OR PRO REMOVE SPINAL CANAL CATHETER N/A 05/11/2014 REMOVAL OF INTRATHECAL OR EPIDURAL CATHETER performed by Jamaal Samuel MD at [facility] MAIN OR PRO REPR, DURAL/CSF LEAK, NOT REQ LAMINECTOMY N/A 05/20/2014 @REPAIR DURAL\CSF LEAK,NOT REQUIRING LAMINECTOMY performed by Freddy Isbell MD at [facility] MAIN OR MEDICATIONS: Current Outpatient Medications Medication [...] [Transparent Dressings] Itching and Dermatitis Please use [id number] Cyclobenzaprine Other Reaction(s): Not available Doxycycline Other [...] labs. Theyare [facility] ([facility] and [facility] I will need to request [...] office visit: 5 minutes Samantha Crystal, MSN, GROUP FITNESS DEPARTMENT HEAD, MAINTENANCE SUPERINTENDENT-C Section of Gastroenterology [place] [address] documented in this encounter Plan of Treatment Upcoming Encounters Date Type Department Care Team (Late st Contact Info) Description 06/02/2024 12:30 PM EST Office [place] [address] Hollie Ambriz MD [facility] [place] [address] documented as of this encounter Visit Diagnoses Diagnosis Constipation, unspecified constipation type documented in this encounter Care Teams Property Insurance Inspector Relationship Specialty Start Date End Date Lorna Bal APRN [address] [place] [address] PCP - General Family Medicine 05/27/18 documented as of this encounter
--- OUTSIDE RECORDS SUMMARY | 2023-12-04 12:35 | XMS_ITS | Encounter Summary ---
Author Organization [facility] [place] [address] Care Team Providers Care Car Worker Name Role Phone Lorna Bal APRN Primary Care Provider +1 [phone] Encounter Details Date Type Department Care Team (Late st Contact Info) Description 10/27/2023 Telephone [place] [phone] Halima García Social History Tobacco Use Types [...] Halima García - 10/27/2023 10:23 AM EDT network control operator (josy) called stating the patient's infection has returned in her back. They are requesting an order for a aspiration to be put in. documented in this encounter Plan of Treatment Upcoming Encounters Date Type Department Care Team (Late st Contact Info) Description 06/02/2024 12:30 PM EST Office [place] [address] Hollie Ambriz MD [facility] [place] [address] documented as of this encounter Visit Diagnoses Not on filedocumented in this encounter Care Teams Car Worker Relationship Specialty Start Date End Date Lorna Bal APRN [address] [place] [address] PCP - General Family Medicine 05/27/18 documented as of this encounter
--- OUTSIDE RECORDS SUMMARY | 2023-12-04 12:35 | XMS_ITS | Encounter Summary ---
Author Organization [facility] Address [facility] [place] [address] Care Team Providers Care Core Maker Name Role Phone Lorna Bal APRN Primary Care Provider +1 [phone] Encounter Details Date Type Department Care Team (Late st Contact Info) Description 10/27/2023 Telephone [place] [phone] Nikolay Toledo MD [facility] [place] [address] Social History Tobacco Use Types Packs/Day Years Used Date Smoking Tobacco: Never Passive Smoke Exposure: Never Smokeless Tobacco: Never Comments:NO SMOKERS IN THE H OME Alcohol Use Standard Drinks/Week Comments No 0 (1 standard drink = 0.6 oz pur e alcohol) [facility] Utilities Answer Date Recorded In the past [...] a group home (including now)? No 10/29/2023 [facility] Inpatient Questions Answer Date [...] shared plan of obtaining labs locally at [facility] and ideally coordinating a CT L-spine at [facility], followed by potential IR [...] PM EST Office [place] [address] Nikolay Toledo MD [facility] DR [place]FECT[place] [address] Scheduled Orders Name Type Priority Associated Diagnoses [...] site documented in this encounter Care Teams Core Maker Relationship Specialty Start Date End Date Lorna Bal APRN [address] [place] [address] PCP - General Family Medicine 05/27/18 documented as of this encounter
--- OUTSIDE RECORDS SUMMARY | 2023-12-04 12:35 | XMS_ITS | Encounter Summary ---
Author [place] [address] Care Team Providers Care Tactical Air Control Party Manager Name Role Phone Lorna Bal APRN Primary Care Provider +1 [phone] Encounter Details Date Type Department Care Team (Latest Contact Info) Description 09/24/2023 Travel Social History Tobacco Use Types Packs/Day Years Used Date Smoking Tobacco: Never Smokeless Tobacco: Never Comments:NO SMOKERS IN THE H OME Alcohol Use Standard Drinks/Week Comments No 0 (1 standard drink = 0.6 oz pur e alcohol) [facility] Inpatient Questions Answer Date Recorded [...] Department Care Team ( Contact Info) Description 06/02/2024 12:30 PM EST Office [place] [phone] Hollie Ambriz MD [facility] [place] [address] documented as of this encounter Visit Diagnoses Not on filedocumented in this encounter Care Teams Tactical Air Control Party Manager Relationship Specialty Start Date End Date Lorna Bal APRN [address] [place] [address] PCP - General Family Medicine 05/27/18 documented as of this encounter
--- OUTSIDE RECORDS SUMMARY | 2023-12-04 12:36 | XMS_ITS | Encounter Summary ---
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, other site Procedures CT Thoracic Spine wo Contrast (Generic) Lorna Bal APRN [address] [place] [address] [facility] [place] [address] Referral ID Status Reason Start Date Expiration Date V isits Requested Visits Authorized [id number] Closed Specialty Service Requested 12/25/2022 06/24/2024 1 1 * Diagnostic Test (Routine) - Closed Specialty Diagnoses / Procedures Referred By Contac t Referred To Contact Radiology Diagnoses Cerebral palsy, unspecified type 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, other site Procedures CT Cervical Spine wo Contrast Lorna Bal APRN [address] [place] [address] [facility] [place] [address] Referral ID Status Reason Start Date Expiration Date V isits Requested Visits Authorized [id number] Closed Specialty Service Requested 12/25/2022 06/24/2024 1 1 Reason for Visit * Diagnostic Test (Routine) - Closed Specialty Diagnoses / Procedures Referred By Contmonica t Referred To Contact Radiology Diagnoses Cerebral palsy, unspecified type 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, other site Procedures CT Cervical Spine wo Contrast Lorna Bal APRN [address] [place] [address] [facility] [place] [address] Referral ID Status Reason Start Date Expiration Date V isits Requested Visits Authorized [id number] Closed Specialty Service Requested 12/25/2022 06/24/2024 1 1 Encounter Details Date Type Department Care Team (Latest Contact Info) Description 12/31/2022 10:50 AM EDT - 12/31/2022 11:59 PM EDT Hospital [place] [address] Lorna Bal APRN [address] [place], [place] [id number] Cerebral palsy, unspecified type; Congenital deformity of spine; Chronic osteomyelitis with draining sinus, other site Discharge Disposition: Home Social History Tobacco Use Types Packs/Day Years Used Date Smoking Tobacco: Never Smokeless Tobacco: Never Comments:NO SMOKERS IN THE H OME Alcohol Use Standard Drinks/Week Comments No 0 (1 standard drink = 0.6 oz pur e alcohol) [facility] Inpatient Questions Answer Date Recorded Does Anyone [...] daily. 12/03/2023 documented as of this encounter Plan of Treatment Upcoming Encounters Date Type Department Care Team (Late st Contact Info) Description 06/02/2024 12:30 PM EST Office [place] [address] Hollie Ambriz MD [facility] [place] [address] documented as of this encounter Procedures Procedure [...] have questions please contact the health career center advisor that requested your imaging first. ? Narrative [...] who have questions please contactthe health career center advisor that requested your imaging first. Lorna Bal APRN IMG CT ORDERABLES * CT Cervical Spine wo [...] have questions please contact the health career center advisor that requested your imaging first. ? Narrative [...] who have questions please contactthe health career center advisor that requested your imaging first. 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
--- OUTSIDE RECORDS SUMMARY | 2023-12-04 12:36 | XMS_ITS | Encounter Summary ---
[place] [address] Care Team Providers Care Road Contractor Name Role Phone Lorna Bal APRN Primary Care Provider +1 [phone] Encounter Details Date Type Department Care Team [...] PM EST Office [place] [address] Hollie Ambriz MD [facility] [place] [address] documented as of this encounter Visit Diagnoses Not on filedocumented in this encounter Care Teams Road Contractor Relationship Specialty Start Date End Date Lorna Bal APRN [address] [place] [address] PCP - General Family Medicine 05/27/18 documented as of this encounter
--- OUTSIDE RECORDS SUMMARY | 2023-12-04 12:36 | XMS_ITS | Encounter Summary ---
Author Organization [facility] [place] [address] Care Team Providers Care Early Intervention School Psychologist Name Role Phone Lorna Bal APRN Primary Care Provider +1 [phone] Encounter Details Date Type Department Care Team (Late st Contact Info) Description 09/05/2022 Telephone [place] [address] Valentina Stanton Social History Tobacco Use Types [...] PM EST Office [place] [address] Hollie Ambriz MD [facility] [address] [place] [address] documented as of this encounter Visit Diagnoses Not on filedocumented in this encounter Care Teams Early Intervention School Psychologist Relationship Specialty Start Date End Date Lorna Bal, VENEER GLUE JOINTER FEEDBACK [address] [place] [address] PCP - General Family Medicine 05/27/18 documented as of this encounter
--- OUTSIDE RECORDS SUMMARY | 2023-12-04 12:36 | XMS_ITS | Encounter Summary ---
[place] [address] Care Team Providers Care Buckram Sewer Name Role Phone Lorna Bal APRN Primary Care Provider +1 [phone] Reason for Referral * Diagnostic Test (Routine) - Closed Specialty Diagnoses / Procedures Referred By Contac t Referred To Contact Radiology Diagnoses Spinal abscess Procedures IR All Drainage Procedures IR All Biopsy Procedures Jamar Dasilva MD [facility] [place] [address] [place] [address] Referral ID Status Reason Start Date Expiration Date V isits Requested Visits Authorized [id number] Closed Specialty Service Requested 09/26/2022 03/28/2024 1 1 Reason for Visit * Diagnostic Test (Routine) - Closed Specialty Diagnoses / Procedures Referred By Contac t Referred To Contact Radiology Diagnoses Spinal abscess Procedures IR All Drainage Procedures IR All Biopsy Procedures Jamar Dasilva MD [facility] [place] [address] [facility] [address] Referral ID Status Reason Start Date Expiration Date V isits Requested Visits Authorized [id number] Closed Specialty Service Requested 09/26/2022 03/28/2024 1 1 Encounter Details Date Type Department Care Team (Latest Contact Info) Description 09/26/2022 12:13 PM EDT - 09/26/2022 11:59 PM EDT Hospital [place] [address] Jamar Dasilva MD [facility] [place] [address] Spinal abscess Discharge Disposition: Home [...] is during regular office hours, please call [phone]. If it is after regular office hours, or on weekends or holidays, please call [phone] and ask to speak to the Agriculture Teacher director employee communications for Interventional Radiology. You have received medication [...] tablet Take 2 tablets by mouth nightly. sulfamethoxazole-trime thoprim DS (Bactrim DS) 800-160 mg [...] of : 1995 AGE: 27 y.o. Address: [address] [place] [address] Phone: [phone] (home) Mobile: Telephone Information: Referring Provider: Jamar Dasilva REASON FOR VISIT: Paralumbar fluid aspiration Order Questions Answers Where will study be performed? [facility] Radiology [120] Is the patient on anticoagulant / antiplatelet therapy ? No Reason for exam and clinical history: history of fluid collections in spinie. CT shows small residual collections after drain removal. please aspirate. d/w ELKIN (Chrissie) Is the patient ? No Planned [...] [Transparent Dressings] Itching and Dermatitis Please use [id number] ??? Penicillins Pertinent PMH: Patient Active Problem [...] Questions Answers Where will study be performed? [facility] Radiology [120] Is the patient on [...] All Drainage Procedures 06/25/2022 Mich Martino MD [facility] INTERVENTIONL RAD ??? IR ALL DRAINAGE PROCEDURES 07/04/2022 IR All Drainage Procedures 07/04/2022 Mich Martino MD [facility] INTERVENTIONL RAD ??? IR ALL DRAINAGE PROCEDURES 07/24/2022 IR All Drainage Procedures 07/24/2022 Anurag Kumar MD [facility] INTERVENTIONL RAD ??? IR DRAIN CHECK/CHANGE/REMOVE 07/01/2022 IR Drain Check/Change/Remove 07/01/2022 Jamaal Jenkins, DO [facility] INTERVENTIONL RAD ??? IR DRAIN CHECK/CHANGE/REMOVE 08/11/2022 IR Drain Check/Change/Remove 08/11/2022 Piter Self MD [facility] INTERVENTIONL RAD ??? IR DRAIN CHECK/CHANGE/REMOVE 08/25/2022 IR Drain Check/Change/Remove 08/25/2022 Jamaal Jenkins, DO [facility] INTERVENTIONL RAD ??? IR DRAIN CHECK/CHANGE/REMOVE 09/10/2022 IR Drain Check/Change/Remove 09/10/2022 Mich Martino MD [facility] INTERVENTIONL RAD ??? PRO APPLY [...] LUMBOSACRAL performed by Freddy Isbell MD at [facility] MAIN OR ??? PRO IMPACT TOOTH REMOV COMP BONY N/A 06/14/2018 SURGICAL EXTRACTIONS, REMOVAL OF IMPACTED TOOTH, COMPLETELY BONY (WRVU 1.93) performed by Keith Cotton MD at [facility] OSC ??? PRO OSTEOTOMY FEMUR SHAFT/SUPRACONDY 08/15/2010 ??OSTEOTOMY, FEMUR SHAFT OR SUPRACONDYLAR W/O FIXATION performed by BARRERA OLIVER at [facility] OR ??? PRO RECONSTRUC HIP SOCKET, RESEC FEM HEAD 08/15/2010 ??ACETABULOPLASTY (GIRDLESTONE), RESECTION FEMORAL HEAD, BILATERAL performed by BARRERA OLIVER [facility] OR ??? PRO REMOVAL DEEP IMPLANT 08/15/2010 REMOVAL IMPLANT, DEEP, BRUNO performed by BARRERA OLIVER at [facility] OR ??? PRO REMOVAL ERUPTED TOOTH WITH ELEVATION OF MUCOPERIOSTEAL FLAP N/A 06/14/2018 SURGICAL EXTRACTIONS REQUIRING ELEVATION OF MUCOPERIOSTEAL FLAP AND REMOVAL OF BONE OR SECTION OF TOOTH (WRVU 1.09) performed by Keith Cotton MD at [facility] OSC ??? PRO REMOVE INFUSN [...] PM EST Office [place] [address] Hollie Ambriz MD [facility] [place] [address] documented as of this encounter Procedures Procedure Name Priority Date/Time Associated Diagnosis Comments IR ALL DRAINAGE PROCEDURES Routine 09/26/2022 1:33 PM EDT Spinal abscess HC FUNGUS CULTURE, MISC SOURCE Routine 09/26/2022 12:49 PM EDT Spinal abscess ANAEROBIC CULTURE Routine 09/26/2022 12: 49 PM EDT Spinal abscess HC GRAM STAIN FOR BACTERIA Routine 09/26/2022 12:49 PM EDT Spinal abscess AFB CULTURE Routine 09/26/2022 12:49 PM EDT Spinal [...] present throughout the procedure. Jamar Dasilva MD [facility] IR ORDERABLES * Anaerobic Culture (09/26/2022 12:49 PM EDT) Anaerobic Culture No anaerobic organisms isolated [facility] Abscess STRUCTURE OF BACK OF TRUNK / Unknown 09/26/2022 12:49 PM EDT 09/26/2022 2:05 PM EDT Narrative Resulting Agency Comment Spec In Lab Jamar Dasilva MD MICROBIOLOGY - GE NERAL ORDERABLES Performing Organization Address [facility] [place] [place] [address] * Abscess/Wound Aspirate Culture (09/26/2022 12:49 PM EDT) Abscess/Wound Aspirate Culture No growth [facility] Gram Stain Few Neutrophils seen No microorganisms seen. [facility] Abscess STRUCTURE OF BACK OF TRUNK / Unknown 09/26/2022 12:49 PM EDT 09/26/2022 2:05 PM EDT Narrative Resulting Agency Comment Spec In Lab Jamar Dasilva MD MICROBIOLOGY - GE NERAL ORDERABLES Performing Organization Address [facility] [place] [place] [address] * Calcofluor White Stain (09/26/2022 12:49 PM EDT) Calcofluor Stain Calcofluor White Preparation: Negative [facility] Abscess 09/26/2022 12:4 9 PM EDT 09/26/2022 2:05 PM EDT Narrative Resulting Agency Comment Spec In Lab Jamar Dasilva MD MICROBIOLOGY - GE NERAL ORDERABLES Performing Organization Address [facility] Co de Phone Number [facility] [place] [address] * Fungus culture (09/26/2022 12:49 PM EDT) Fungus Culture No Fungus isolated [facility] Abscess 09/26/2022 12:4 9 PM EDT 09/26/2022 2:05 PM EDT Narrative Resulting Agency Comment Spec In Lab Jamar Dasilva MD MICROBIOLOGY - GE NERAL ORDERABLES Performing Organization Address City/[facility]/ZIP Co de Phone Number [facility] [place] [place] [address] * AFB culture Back (09/26/2022 12:49 PM EDT) Acid Fast Bacilli Culture No Acid Fast Bacilli isolated [facility] Acid Fast Stain No Acid Fast Bacilli seen [facility] Back 09/26/2022 12:4 9 PM EDT 09/26/2022 2:05 PM EDT Narrative Resulting Agency Comment Spec In Lab Jamar Dasilva MD MICROBIOLOGY - [facility] ORDERABLES [facility] [place] [address] documented in this encounter Visit Diagnoses Diagnosis [...] mLs documented in this encounter Care Teams Buckram Sewer Relationship Specialty Start Date End Date Lorna Bal APRN [address] [place] [address] PCP - General Family Medicine 05/27/18 documented as of this encounter
--- OUTSIDE RECORDS SUMMARY | 2023-12-04 12:36 | XMS_ITS | Encounter Summary ---
Author Organization [facility] [place] [address] Care Team Providers Care Medical Imaging Specialist Name Role Phone Lorna Bal APRN Primary Care Provider +1 -[phone] Reason for Referral * Diagnostic Test (Routine) - Closed Specialty Diagnoses / Procedures Referred By Contac t Referred To Contact Radiology Diagnoses Spinal abscess Procedures CT Lumbar Spine w Contrast Jamar Dasilva MD [facility] INFECTI[place] [address] [facility] [place] [address] Referral ID Status Reason Start Date Expiration Date V isits Requested Visits Authorized [id number] Closed Specialty Service Requested 09/25/2022 03/27/2024 1 1 Encounter Details Date Type Department Care Team (Late st Contact Info) Description 09/25/2022 Orders [place] [address] Jamar Dasilva MD [facility] [place] [address] Spinal abscess Social History Tobacco [...] PM EST Office [place] [address] Hollie Ambriz MD [facility] DR INFECTI[place] [address] documented as of this encounter Results * [...] who have questions please contact the health property caretaker that requested your imaging first. ? [...] patients who have questions please contactthe health property caretaker that requested your imaging first. Jamar Dasilva MD IMG CT ORDERABLES documented in this encounter Visit Diagnoses Diagnosis Spinal abscess Acute osteomyelitis, other specified site Spinal abscess Acute osteomyelitis, other specified site documented in this encounter Care Teams Medical Imaging Specialist Relationship Specialty Start Date End Date Lorna Bal, PARI MUTUEL TICKET SELLER [address] [place] [address] PCP - General Family Medicine 05/27/18 documented as of this encounter
--- OUTSIDE RECORDS SUMMARY | 2023-12-04 12:36 | XMS_ITS | Encounter Summary ---
[place] [address] Care Team Providers Care Glass Bulb Silverer Name Role Phone Lorna Bal APRN Primary Care Provider +1 -[phone] Encounter Details Date Type Department Care Team (Latest Contact Info) Description 01/29/2023 Travel Social History Tobacco Use Types Packs/Day Years Used Date Smoking Tobacco: Never Smokeless Tobacco: Never Comments:NO SMOKERS IN THE H OME Alcohol Use Standard Drinks/Week Comments No 0 (1 standard drink = 0.6 oz pur e alcohol) [facility] Inpatient Questions Answer Date Recorded Does Anyone [...] PM EST Office Visit [place] [address] Hollie Ambriz MD [facility] [place] [address] documented as of this encounter Visit Diagnoses Not on filedocumented in this encounter Care Teams Glass Bulb Silverer Relationship Specialty Start Date End Date Lorna Bal APRN [address] [place] [address] PCP - General Family Medicine 05/27/18 documented as of this encounter
--- OUTSIDE RECORDS SUMMARY | 2023-12-04 12:36 | XMS_ITS | Encounter Summary ---
Author Organization [place] [address] Care Team Providers Care Bacteriology Teacher Name Role Phone Lorna Bal APRN Primary Care Provider [phone] -[phone] Reason for Referral * Diagnostic Test (Routine) - Closed Specialty Diagnoses / Procedures Referred By Contac t Referred To Contact Radiology Diagnoses Spinal abscess Procedures CT Lumbar Spine w Contrast George Tipton MD [facility] DR [place] [address] [facility] [place] [address] Referral ID Status Reason Start Date Expiration Date V isits Requested Visits Authorized [id number] Closed Specialty Service Requested 04/15/2023 10/14/2024 1 1 Reason for Visit * Diagnostic Test (Routine) - Closed Specialty Diagnoses / Procedures Referred By Contac t Referred To Contact Radiology Diagnoses Spinal abscess Procedures CT Lumbar Spine w Contrast George Tipton MD [facility] [place] [address] [facility] [place] [address] Referral ID Status Reason Start Date Expiration Date V isits Requested Visits Authorized [id number] Closed Specialty Service Requested 04/15/2023 10/14/2024 1 1 Encounter Details Date Type Department Care Team (Latest Contact Info) Description 04/16/2023 3:10 PM EST - 04/16/2023 11:59 PM EST Hospital [place] [address] [place] [address] Spinal abscess Discharge Disposition: Home [...] into the vein Twice daily. 02/23/2023 06/08/2023 ergocalciferoL, vitamin D2, (vitamin D2) 50,000 unit [...] PM EST Office [place] [address] Hollie Ambriz MD [facility] [place] [address] documented as of this encounter Procedures Procedure [...] who have questions please contact the health anesthesiologist and critical care that requested your imaging first. ? Electronically signed by: Bobo Keane MD, [facility] ([phone]), at 04/17/2023 10:53 AM Narrative 04/17/2023 10:53 [...] patients who have questions please contactthe health anesthesiologist and critical care that requested your imaging first. Electronically signed by: Bobo Keane MD, [facility]([phone]), at 04/17/2023 10:53 AM Keri Trevino MD IM CT ORDERABLES documented in this encounter Visit [...] mLs documented in this encounter Care Teams Bacteriology Teacher Relationship Specialty Start Date End Date Lorna Bal APRN [address] [place] [address] PCP - General Family Medicine 05/27/18 documented as of this encounter
--- OUTSIDE RECORDS SUMMARY | 2023-12-04 12:36 | XMS_ITS | Encounter Summary ---
Author Organization [facility] Address [facility] [place] [address] Care Team Providers Care Contract Associate Manager Name Role Phone Lorna Bal APRN Primary Care Provider [phone] Reason for Visit * Reason Comments Follow-up Encounter Details Date Type Department Care Team (Late st Contact Info) Description 03/26/2023 10:00 AM EST Office [place] [address] George Tipton MD [facility] CRITICAL [place] [address] 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 Dx) Social History Tobacco Use Types Packs/Day Years Used Date Smoking Tobacco: Never Smokeless Tobacco: Never Tobacco Cessation:Counseling Given: Not Answered Comments:NO SMOKERS IN THE HOME Alcohol Use Standard Drinks/Week Comments No 0 (1 standard drink = 0.6 oz pur e alcohol) [facility] Inpatient Questions Answer Date Recorded [...] remained on bactrim. Followed up with in [place]. MRI was not possible sec. To hardware. CRP/ESR was trending upwards. NSG referred her to [facility] for surgery. The patient went [...] Tipton MD Infectious Diseases Fellow- PGY5 Pager: [phone] 03/25/2023 4:00 PM Plan discussed with Dr. Gabo Trevino This note was created using [employer]) voice recognition software. I have seen the [...] 1-2 weeks from initiation. Gabo Trevino MD [facility] Infectious Disease * Olinda Barahona RN - [...] 1-2 weeks from initiation. Gabo Trevino MD [facility] Infectious Disease documented in this encounter Plan of Treatment Upcoming Encounters Date Type Department Care Team (Late st Contact Info) Description 06/02/2024 12:30 PM EST Office [place] [address] Hollie Ambriz MD [facility] DR [place]FECT[place] [address] Scheduled Orders Name Type Priority Associated Diagnoses Orde r Schedule Cath, Percutaneous Central Cath Removal (PICC) Procedures Routine Spinal abscess Expected: 09/25/2023, Expires: 04/25/2024 documented as of this encounter Procedures Procedure Name Priority Date/Time Associated Diagnosis Comments CRP, ACUTE INFLAMMATION Routine 03/26/2023 11:06 AM EST Spinal abscess SCAN, PERIPHERAL BLOOD Routine 11:06 AM EST HEMOGRAM Routine 03/26/2023 11:06 AM EST Spinal abscess DIFFERENTIAL, AUTOMATED Routine 03/26/2023 11:06 AM EST Spinal abscess SEDIMENTATION RATE Routine 03/26/2023 11 :06 AM EST Spinal abscess CBC (WITH DIFF) Routine 03/26/2023 11:06 AM EST Spinal abscess COMPREHENSIVE METABOLIC PANEL Routine 03/26/2023 11:06 AM EST Spinal abscess documented in this encounter Results * (ABNORMAL) CRP, acute inflammation (04/16/2023 4:20 PM EST) C-Reactive Protein 47.2(H) <=4.9 mg/L [facility] Blood 04/16/2023 4:20 PM EST 04/16/2023 4:28 PM EST Narrative Resulting Agency Comment Spec In Lab Gabo Trevino MD CHEMISTRY ORDERABLE S [facility] [place] [address] * (ABNORMAL) Comprehensive metabolic panel (non-fasting) (04/16/2023 4:20 PM EST) Glucose 79 65 - 199 mg/dL [facility] Comment:Diabetes: >=200 mg/d L plus symptoms Blood Urea Nitrogen 10 8 - 18 mg/dL [facility] Creatinine 0.49(L) 0.70 - 1.20 mg/dL [facility] Sodium 137 135 - 145 mmol/L [facility] Potassium 3.8 3.5 - 5.0 mmol/L [facility] Comment: Please note: ??Patients with WBC >100,000 may have falsely elevated Potassium levels. ??For accurate Potassium quantification in these patients send serum separator tube (gold top) for subsequent determinations. ??Contact the Clinical Chemistry Laboratory if there are any questions. Chloride 99 98 - 107 mmol/L [facility] Carbon Dioxide 27 22 - 31 mmol/L [facility] Anion Gap 11 5 - 15 mmol/L [facility] Calcium 9.4 8.5 - 10.5 mg/dL [facility] Protein, Total 7.9 6.1 - 8.0 g/dL [facility] Albumin 4.2 3.2 - 5.2 g/dL [facility] Aspartate Aminotransferase 15 0 - 30 unit/L [facility] Alanine Aminotransferase 40(H) 0 - 30 unit/L [facility] Alkaline Phosphatase 320(H) 35 - 105 unit/L [facility] Bilirubin, Total <0.2(L) 0.2 - 1.3 mg/dL [facility] Est Glomerular Filtration Rate 131 >=60 mL/min/1. 73 m?? [facility] Comment: This patient's estimated [...] Lab Gabo Trevino [place] [address] * US Abdomen Limited Hepatology Protocol (03/27/2023 [...] PM Electronically signed by: Curt Dozier MD, [facility] ([phone]), at 03/27/2023 3:31 PM Thank you for letting us participate in the care of this patient. If you are a health care provider and have any questions regarding this report, please contact the number above. For patients who have questions, please contact the health nurse wound care that requested your imaging first. ? Curt Dozier, Staff Physician Electronically Signed Final Report ?? 03/27/2023 03:36 pm Narrative 03/27/2023 3:37 PM EST Abdominal ? (Signed Final 03/27/2023 03:36 pm) PATIENT INFO: ID #: ? [id number] ?: ??[birth year] (27 yrs)(F) Name: ? TANA SHELTON ?Visit Date: 03/27/2023 03:21 pm PERFORMED BY: Attending: ?Jacoby GONZALES MD, Curt Langston Performed By: ? Shelby Gardner RDMS Referred By: ?GABO TREVINO Location: ? [facility] SERVICE(S) PROVIDED: [facility] - Hepatology Protocol - Abdominal ?59040 Limited Survey Single Organ or Quadrant - [id number] INDICATIONS: Transaminitis ------ LIVER: ------ Right Lobe [...] 03/27/2023 03:36 pm) PATIENT INFO: ID #: [id number] : [birth year] (27 yrs)(F) Name: TANA SHELTON Visit Date: 03/27/2023 03:21 pm PERFORMED BY: Attending: Jacoby GONZALES MD, Arthur L. Performed By: Shelby Gardner RDMS Referred By: GABO TREVINO Location: [facility] SERVICE(S) PROVIDED: [facility] - Hepatology Protocol - Abdominal 45171 Limited Survey Single Organ or Quadrant - [id number] INDICATIONS: Transaminitis ------ LIVER: ------ Right Lobe [...] PM Electronically signed by: Curt Dozier MD, [facility] ([phone]), at 03/27/2023 3:31 PM Thank you for letting us participate in the care of this patient. If you are a health care provider and have any questions regarding this report, please contact the number above. For patients who have questions, please contact the health nurse wound care that requested your imaging first. Curt Dozier, Staff Physician Electronically Signed Final Report 03/27/2023 03:36 pm Gabo Trevino MD IMG US GEN ORDERABL ES * Scan, Peripheral Blood (03/26/2023 11:06 AM EST) Pathologist [facility] Plat estimate Normal [facility] RBC Morphology Abnormal [facility] Hypochromia Slight [facility] Stomatocytes 1-5 /HPF [facility] Stippled RBC Present >1/HPF [facility] Blood 03/26/2023 11:0 6 AM EST 03/26/2023 11:21 AM EST Narrative Resulting Agency Comment Spec In Lab George Tipton MD HEMATOLOGY ORDERABLE S [facility] [place] [address] * Differential, Automated (03/26/2023 11:06 AM EST) Neutrophil % 62.0 % [facility] Neutrophil Absolute 3.69 1.70 - 6.10 x10(3)/[facility] Lymph % 27.7 % [facility] Lymphocytes Abs 1.6 0.9 - 3.2 x10(3)/[facility] Monocyte % 7.7 % [facility] Monocyte Abs 0.5 0.3 - 0.9 x10(3)/[facility] Eos % 1.8 % [facility] Eosinophils Abs 0.1 0.0 - 0.4 x10(3)/[facility] Basophil % 0.5 % [facility] Baso Absolute 0.0 0.0 - 0.1 x10(3)/[facility] Immature Gran % 0.30 % [facility] Comment: Immature granulocytes(IG's)percentage and absolute count will include metamyelocytes, myelocytes, and promyelocytes. Blood smears from CBCs yielding IG's will be scanned manually for concordance. If this scan disagrees with the automated IG or if promyelocytes are noted, a manual differential will be performed. Immature Gran Absolute 0.02 0.00 - 0.04 x10(3)/[facility] Blood 03/26/2023 11:0 6 AM EST 03/26/2023 11:21 AM EST Narrative Resulting Agency Comment Spec In Lab George Tipton MD HEMATOLOGY ORDERABLE S Performing Organization Address City/State/[facility] Co de Phone Number [facility] [place] [address] * (ABNORMAL) Hemogram (03/26/2023 11:06 AM EST) White Blood Cell 6.0 4.0 - 9.5 x10(3)/mc L [facility] Red Blood Cell 3.07(L) 4.00 - 5.21 x10(6)/mc L [facility] Hemoglobin 8.9(L) 11.7 - 15.5 g/dL [facility] Hematocrit 27.5(L) 35.7 - 45.8 % [facility] Mean Cell Volume 89.6 82.6 - 94.4 fL [facility] Mean Cell Hemoglobin 29.0 27.1 - 32.0 pg [facility] Mean Cell Hemoglobin Concentration 32.4 31.7 - 35.0 g/dL [facility] Platelet 355 145 - 357 x10(3)/mc L [facility] RDW Standard Deviation 49.0(H) 37.0 - 46.0 fL [facility] RDW coefficient of variation 15.0(H) 11.5 - 14.1 % [facility] Mean Platelet Volume 9.1 7.6 - 12.9 fL [facility] NRBC% auto 0.0 % [facility] NRBC Absolute 0.000 0.000 - 0.000 x10(3)/mc L [facility] Blood 03/26/2023 11:0 6 AM EST 03/26/2023 11:21 AM EST Narrative Resulting Agency Comment Spec In Lab George Tipton MD HEMATOLOGY ORDERABLE S Performing Organization Address City/State/[facility] Co de Phone Number [facility] [place] [address] * (ABNORMAL) Comprehensive metabolic panel (non-fasting) (03/26/2023 11:06 AM EST) Glucose 81 65 - 199 mg/dL [facility] Comment:Diabetes: >=200 mg/d L plus symptoms Blood Urea Nitrogen 19(H) 8 - 18 mg/dL [facility] Creatinine 0.27(L) 0.70 - 1.20 mg/dL [facility] Sodium 140 135 - 145 mmol/L [facility] Potassium 4.3 3.5 - 5.0 mmol/L [facility] Comment: Please note: ??Patients with WBC >100,000 may have falsely elevated Potassium levels. ??For accurate Potassium quantification in these patients send serum separator tube (gold top) for subsequent determinations. ??Contact the Clinical Chemistry Laboratory if there are any questions. Chloride 104 98 - 107 mmol/L [facility] Carbon Dioxide 23 22 - 31 mmol/L [facility] Anion Gap 13 5 - 15 mmol/L [facility] Calcium 9.8 8.5 - 10.5 mg/dL [facility] Protein, Total 7.7 6.1 - 8.0 g/dL [facility] Albumin 4.3 3.2 - 5.2 g/dL [facility] Aspartate Aminotransferase 45(H) 0 - 30 unit/L [facility] Alanine Aminotransferase 101(H) 0 - 30 unit/L [facility] Alkaline Phosphatase 378(H) 35 - 105 unit/L [facility] Bilirubin, Total <0.2(L) 0.2 - 1.3 mg/dL [facility] Est Glomerular Filtration Rate 151 >=60 mL/min/1. 73 m?? [facility] Comment: This patient's estimated [...] MD CHEMISTRY ORDERABLE S Performing Organization Address City/[facility]/ZIP Co de Phone Number [facility] [place] [address] * (ABNORMAL) Sedimentation rate (03/26/2023 11:06 AM EST) Sedimentation Rate Automated 69(H) 2 - 37 mm/hr [facility] Comment: Effective April 06, 2019 new capillary photometric technology has resulted in a change in reference ranges. It is recommended that each ESR result be reviewed with its own age appropriate reference range. Blood 03/26/2023 11:0 6 AM EST 03/26/2023 11:21 AM EST Narrative Resulting Agency Comment Spec In Lab Gabo Trevino MD HEMATOLOGY ORDERABL ES Performing Organization Address City/[facility]/ZIP Co de Phone Number [facility] [place] [address] * (ABNORMAL) CRP, acute inflammation (03/26/2023 11:06 AM EST) C-Reactive Protein 86.3(H) <=4.9 mg/L [facility] Blood 03/26/2023 11:0 6 AM EST 03/26/2023 11:21 AM EST Narrative Resulting Agency Comment Spec In Lab Gabo Trevino MD CHEMISTRY ORDERABLE S Performing Organization Address City/State/[facility] Co de Phone Number [facility] [place] [address] documented in this encounter Visit Diagnoses Diagnosis Spinal abscess- Primary Acute osteomyelitis, other specified site Spinal abscess Acute osteomyelitis, other specified site documented in this encounter Care Teams Contract Associate Manager Relationship Specialty Start Date End Date Lorna aBl APRN [address] [place] [address] PCP - General Family Medicine 05/27/18 documented as of this encounter
--- OUTSIDE RECORDS SUMMARY | 2023-12-04 12:36 | XMS_ITS | Encounter Summary ---
Author Organization [facility] Address [facility] [place] [address] Care Team Providers Care Bun Icer Name Role Phone Lorna Bal APRN Primary Care Provider [phone] Reason for Visit * Consultation (Urgent) - Authorized Specialty Diagnoses / Procedures Referred By Contmonica t Referred To Contact Infectious Diseases Diagnoses Osteomyelitis, unspecified site, unspecified type Spinal cord abscess Lorna Bal APRN [address] [place] [address] [facility] [address] [place] [id number] Referral ID Status Reason Start Date Expiration Date Visits Requested Visits Authorized [id number] Authorized Consult, Test & Treat PCP Updated and/or Approved 12/23/2022 12/23/2023 6 6 Encounter Details Date Type Department Care Team (Late st Contact Info) Description 01/29/2023 9:30 AM EDT Office [place] [address] George Tipton MD [facility] [place] [address] [facility] 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 Social History [...] remained on bactrim. Followed up with in [place]. MRI was not possible sec. To hardware. CRP/ESR was trending upwards. NSG referred her to [facility] for surgery and patient is scheduled for a procedure on 02/11/23. Patient presents to ID clinic to reestablish care in anticipation that she will need antibiotics after her surgery since she will have new hardware in setting of chronic infection. Patient is accompanied by 2 caregivers. According to the caregivers patient lives in a house in [place] with another roommate. They have been taking [...] All Drainage Procedures 06/25/2022 Mich Martino MD [facility] IR ALL DRAINAGE PROCEDURES 07/04/2022 IR All Drainage Procedures 07/04/2022 Mich Martino MD [facility] IR ALL DRAINAGE PROCEDURES 07/24/2022 IR All Drainage Procedures 07/24/2022 Anurag Kumar MD [facility] IR ALL DRAINAGE PROCEDURES 09/26/2022 IR All Drainage Procedures 09/26/2022 Jamaal Jenkins, DO [facility] IR DRAIN CHECK/CHANGE/REMOVE 07/01/2022 IR Drain Check/Change/Remove 07/01/2022 Jamaal Jenkins, DO [facility] IR DRAIN CHECK/CHANGE/REMOVE 08/11/2022 IR Drain Check/Change/Remove 08/11/2022 Piter Self MD [facility] IR DRAIN CHECK/CHANGE/REMOVE 08/25/2022 IR Drain Check/Change/Remove 08/25/2022 Jamaal Jenkins, DO [facility] IR DRAIN CHECK/CHANGE/REMOVE 09/10/2022 IR Drain Check/Change/Remove 09/10/2022 Mich Martino MD [facility] PRO APPLY OF HIP CASTS, TWO LEGS 08/15/2010 CAST APPLICATION, HIP SPICA, BOTH LEGS performed by BARRERA OLIVER at [facility] MAIN OR PRO I&D, POST SPINE, LUMB/SACR/LUMBOSAC N/A 05/20/2014 @I & D, OPEN, DEEP ABSCESS, LUMBAR, SACRAL, LUMBOSACRAL performed by Freddy Isbell MD at [facility] MAIN OR PRO I&D, POST SPINE, LUMB/SACR/LUMBOSAC N/A 05/26/2014 @I & D, OPEN, DEEP ABSCESS, LUMBAR, SACRAL, LUMBOSACRAL performed by Freddy Isbell MD at [facility] MAIN OR PRO IMPACT TOOTH REMOV COMP BONY N/A 06/14/2018 SURGICAL EXTRACTIONS, REMOVAL OF IMPACTED TOOTH, COMPLETELY BONY (WRVU 1.93) performed by Keith Cotton MD at [facility] OSC PRO OSTEOTOMY FEMUR SHAFT/SUPRACONDY 08/15/2010 ??OSTEOTOMY, FEMUR SHAFT OR SUPRACONDYLAR W/O FIXATION performed by BARRERA OLIVER at [facility] MAIN OR PRO RECONSTRUC HIP SOCKET, RESEC FEM HEAD 08/15/2010 ??ACETABULOPLASTY (GIRDLESTONE), RESECTION FEMORAL HEAD, BILATERAL performed by BARRERA OLIVER [facility] MAIN OR PRO REMOVAL DEEP IMPLANT 08/15/2010 REMOVAL IMPLANT, DEEP, BRUNO performed by BARRERA OLIVER at [facility] MAIN OR PRO REMOVAL ERUPTED TOOTH WITH ELEVATION OF MUCOPERIOSTEAL FLAP N/A 06/14/2018 SURGICAL EXTRACTIONS REQUIRING ELEVATION OF MUCOPERIOSTEAL FLAP AND REMOVAL OF BONE OR SECTION OF TOOTH (WRVU 1.09) performed by Keith Cotton MD at [facility] OSC PRO REMOVE INFUSN DEVICE/PUMP N/A 05/11/2014 REMOVAL OF SPINE INFUSION PUMP performed by Jamaal Samuel MD at [facility] MAIN OR PRO REMOVE SPINAL CANAL CATHETER N/A 05/11/2014 REMOVAL OF INTRATHECAL OR EPIDURAL CATHETER performed by Jamaal Samuel MD at [facility] MAIN OR PRO REPR, DURAL/CSF LEAK, NOT REQ LAMINECTOMY N/A 05/20/2014 @REPAIR DURAL\CSF LEAK,NOT REQUIRING LAMINECTOMY performed by Freddy Isbell MD at [facility] MAIN OR Allergies: Allergies Allergen Reactions Fluoxetine Other (See Comments) HIVES, HEART RACES Tegaderm [Transparent Dressings] Itching and Dermatitis Please use [id number] Penicillins Immunization History: Immunization History Administered Date(s) Administered Influenza Vaccine (Novel) [id number], Injectable 02/25/2009 Influenza Vaccine w/Preservative, Split 04/25/2011 Influenza Vaccine, Whole 03/27/2009 Family History: Family History Problem Relation Age of Onset Cancer Maternal Grandmother Heart Disease Maternal Grandfather Social History: Hx of CP, lives in a fpc with care givers. ROS: 14 point ROS [...] Patient is being evaluated by neurosurgery in [facility] and is scheduled to undergo revision lumbar interbody fusion. We are evaluating the patient in anticipation that she will need antibiotics postprocedure. After discussing with the caregivers we decided to hold Bactrim as it will increase the yield of intraoperative cultures. Once surgery is performed in [facility] patient will need ID follow-up inpatient and then her care can be transitioned over to our clinic since it is closer to [place]. At this time Bactrim will be held [...] Dr. Nikolay Tipton MD Infectious Diseases Fellow-[id number] [facility] Pager: [phone] 01/28/2023 10:38 AM * Nikolay Toledo MD [...] later this month at a hospital in [place]. I actually think this poses a good [...] PM EST Office [place] [address] Nikolay Toledo MD [facility] [place] [address] documented as of this encounter Visit Diagnoses Diagnosis [facility] 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 Encounter for long-term (current) use of antibiotics documented in this encounter Care Teams Bun Icer Relationship Specialty Start Date End Date Lorna Bal APRN [address] [place] [address] PCP - General Family Medicine 05/27/18 documented as of this encounter
--- OUTSIDE RECORDS SUMMARY | 2023-12-04 12:36 | XMS_ITS | Encounter Summary ---
Author Organization [facility] [place] [address] Care Team Providers Care Care Associate Name Role Phone Lorna Bal APRN Primary Care Provider [phone] Encounter Details Date Type Department Care Team (Late st Contact Info) Description 09/25/2022 Telephone [place] [phone] Jamar Dasilva MD [facility] [place] [address] Social History Tobacco Use Types Packs/Day Years [...] status. Tana saw her neurosurgeon today in [place]. He feels that her symptoms are an allergic reaction to the current abx and requests that the abx be changed. The neurosurgeon said that they need to go in and remove a screw and clean out the area around the meredith in Tana's back. They do not want to do this at [facility] as it will require a plastic surgeon to close up due to Tana's skin being compromised. Javed relays that the neurosurgeon is trying to arrange surgery in [place] where a plastic surgeon is available. The [...] went over 70 she needed to go [facility] ED. Should she do that? No fever and WBC is normal. #4- Can Dr. Dasilva help to schedule an appt with radiology to have the drains put back in? documented in this encounter Plan of Treatment Upcoming Encounters Date Type Department Care Team (Late st Contact Info) Description 06/02/2024 12:30 PM EST Office [place] [address] Hollie Ambriz MD [facility] [place] [address] documented as of this encounter Visit Diagnoses Not on filedocumented in this encounter Care Teams Care Associate Relationship Specialty Start Date End Date Lorna Bal APRN [address] [place] [address] PCP - General Family Medicine 05/27/18 documented as of this encounter
--- OUTSIDE RECORDS SUMMARY | 2023-12-04 12:36 | XMS_ITS | Encounter Summary ---
Author Organization Formerly [facility] [place] [address] Care Team Providers Care Account Leader Name Role Phone Lorna Bal APRN Primary Care Provider +1 -[phone] Encounter Details Date Type Department Care Team (Latest Contact Info) Description 03/27/2023 2:54 PM EST - 03/27/2023 11:59 PM EST Hospital [place] [address] [place] [address] Spinal abscess Discharge Disposition: Home Social History Tobacco Use Types Packs/Day Years Used Date Smoking Tobacco: Never Smokeless Tobacco: Never Comments:NO SMOKERS IN THE H OME Alcohol Use Standard Drinks/Week Comments No 0 (1 standard drink = 0.6 oz pur e alcohol) [facility] Inpatient Questions Answer Date Recorded [...] PM EST Office [place] [address] Hollie Ambriz MD [facility] [place] [address] documented as of this encounter Procedures Procedure [...] signed by: Curt Dozier MD, [facility] ([phone]), at 03/27/2023 3:31 PM Thank you for letting us participate in the care of this patient. If you are a health care provider and have any questions regarding this report, please contact the number above. For patients who have questions, please contact the health career resource technician that requested your imaging first. ? Curt Dozier, Staff Physician Electronically Signed Final Report ?? 03/27/2023 03:36 pm Narrative 03/27/2023 3:37 PM EST Abdominal ? (Signed Final 03/27/2023 03:36 pm) PATIENT INFO: ID #: ? [id number] ?: ??[birth year] (27 yrs)(F) Name: ? TANA SHELTON ?Visit Date: 03/27/2023 03:21 pm PERFORMED BY: Attending: ?Jacoby GONZALES MD, Curt Langston Performed By: ? Shelby Gardner RDMS Referred By: ?GABO TREVINO Location: ? [place] [facility] Protocol - Abdominal ?39216 Limited Survey Single Organ or Quadrant - [id number] INDICATIONS: Transaminitis ------ LIVER: ------ Right Lobe [...] 03/27/2023 03:36 pm) PATIENT INFO: ID #: [id number] : [birth year] (27 yrs)(F) Name: TANA SHELTON Visit Date: 03/27/2023 03:21 pm PERFORMED BY: Attending: Jacoby GONZALES MD, Arthur L. Performed By: Shelby Gardner RDMS Referred By: GABO TREVINO Location: [place] [facility] Protocol - Abdominal 39726 Limited Survey Single Organ or Quadrant - [id number] INDICATIONS: Transaminitis ------ LIVER: ------ Right Lobe [...] have questions, please contact the health career resource technician that requested your imaging first. Curt Dozier, Staff Physician Electronically Signed Final Report 03/27/2023 03:36 pm Gabo Trevino [facility] ORDERABL ES documented in this encounter Visit Diagnoses Diagnosis Spinal abscess Acute osteomyelitis, other specified site documented in this encounter Care Teams Account Leader Relationship Specialty Start Date End Date Lorna Bal APRN [address] [place] [address] PCP - General Family Medicine 05/27/18 documented as of this encounter
--- OUTSIDE RECORDS SUMMARY | 2023-12-04 12:36 | XMS_ITS | Encounter Summary ---
Author Organization [place] [address] Care Team Providers Care Rail Technician Name Role Phone Lorna Bal APRN Primary Care Provider +1 [phone] Encounter Details Date Type Department Care Team (Latest Contact Info) Description 08/25/2022 [place] [phone] Lorna Bal APRN [address] [place], [place] [id number] Escherichia coli septicemia; Intraspinal abscess; Spinal cord [...] PM EST Office [place] [address] Hollie Ambriz MD [facility] [address] [place] [address] documented as of this encounter Visit Diagnoses Diagnosis Escherichia coli septicemia Septicemia due to Escherichia coli (E. coli) Intraspinal abscess Spinal cord abscess Acute osteomyelitis, other specified site documented in this encounter Care Teams Rail Technician Relationship Specialty Start Date End Date Lorna Bal APRN [address] [place] [address] PCP - General Family Medicine 05/27/18 documented as of this encounter
--- OUTSIDE RECORDS SUMMARY | 2023-12-04 12:36 | XMS_ITS | Encounter Summary ---
[place] [address] Care Team Providers Care Marketing Segment Manager Name Role Phone Lorna Bal APRN Primary Care Provider +1 [phone] Encounter Details Date Type Department Care Team (Latest Contact Info) Description 04/16/2023 4:05 PM EST Laboratory Appointment Lab [address] [place] [phone] Spinal abscess Social History Tobacco Use Types [...] PM EST Office Visit [place] [phone] Hollie Ambriz MD [facility] [address] INFECTIOUS DISEASE [place] [id number] documented as of this encounter Procedures Procedure Name Priority Date/Time Associated Diagnosis Comments CRP, ACUTE INFLAMMATION Routine 04/16/2023 4:20 PM EST Spinal abscess BILIRUBIN, DIRECT Routine 04/16/2023 4:2 0 PM EST COMPREHENSIVE METABOLIC PANEL Routine 04/16/2023 4:20 PM EST Spinal abscess documented in this encounter Results * Bilirubin, Direct (04/16/2023 4:20 PM EST) Bilirubin, Direct <0.1 0.0 - 0.3 mg/dL [facility] Blood 04/16/2023 4:20 PM EST 04/16/2023 4:28 PM EST Narrative Resulting Agency Comment Spec In Lab George Tipton MD CHEMISTRY ORDERABLES [facility] [place] [address] * (ABNORMAL) Comprehensive metabolic panel (non-fasting) (04/16/2023 4:20 PM EST) Glucose 79 65 - 199 mg/dL [facility] Comment:Diabetes: >=200 mg/d L plus symptoms Blood Urea Nitrogen 10 8 - 18 mg/dL [facility] Creatinine 0.49(L) 0.70 - 1.20 mg/dL [facility] Sodium 137 135 - 145 mmol/L [facility] Potassium 3.8 3.5 - 5.0 mmol/L [facility] Comment: Please note: ??Patients with WBC >100,000 may have falsely elevated Potassium levels. ??For accurate Potassium quantification in these patients send serum separator tube (gold top) for subsequent determinations. ??Contact the Clinical Chemistry Laboratory if there are any questions. Chloride 99 98 - 107 mmol/L [facility] Carbon Dioxide 27 22 - 31 mmol/L [facility] Anion Gap 11 5 - 15 mmol/L [facility] Calcium 9.4 8.5 - 10.5 mg/dL [facility] Protein, Total 7.9 6.1 - 8.0 g/dL [facility] Albumin 4.2 3.2 - 5.2 g/dL [facility] Aspartate Aminotransferase 15 0 - 30 unit/L [facility] Alanine Aminotransferase 40(H) 0 - 30 unit/L [facility] Alkaline Phosphatase 320(H) 35 - 105 unit/L [facility] Bilirubin, Total <0.2(L) 0.2 - 1.3 mg/dL [facility] Est Glomerular Filtration Rate 131 >=60 mL/min/1. 73 m?? [facility] Comment: This patient's estimated [...] Lab Keri Trevino MD CHEMISTRY ORDERABLE S [facility] [place] [address] * (ABNORMAL) CRP, acute inflammation (04/16/2023 4:20 PM EST) C-Reactive Protein 47.2(H) <=4.9 mg/L [facility] Blood 04/16/2023 4:20 PM EST 04/16/2023 4:28 PM EST Narrative Resulting Agency Comment Spec In Lab Keri Trevino MD CHEMISTRY ORDERABLE S [facility] [place] [address] documented in this encounter Visit Diagnoses Diagnosis Spinal abscess Acute osteomyelitis, other specified site documented in this encounter Care Teams Marketing Segment Manager Relationship Specialty Start Date End Date Lorna Bal APRN [address] [place] [address] PCP - General Family Medicine 05/27/18 documented as of this encounter
--- OUTSIDE RECORDS SUMMARY | 2023-12-04 12:36 | XMS_ITS | Encounter Summary ---
[place] [address] Care Team Providers Care Software Engineer Backend Name Role Phone Lorna Bal APRN Primary Care Provider [phone] [phone] Reason for Referral * Consultation (Urgent) - Authorized Specialty Diagnoses / Procedures Referred By Contac t Referred To Contact Infectious Diseases Diagnoses Osteomyelitis, unspecified site, unspecified type Spinal cord abscess Lorna Bal APRN [address] [place] [address] [facility] [address] [place] [id number] Referral ID Status Reason Start Date Expiration Date Visits Requested Visits Authorized [id number] Authorized Consult, Test & Treat PCP Updated and/or Approved 12/23/2022 12/23/2023 6 6 Encounter Details Date Type Department Care Team (Latest Contact Info) Description 12/23/2022 Transcribe Orders eDH Incoming Referrals [phone] Lorna Bal APRN [address] [place] [address] Osteomyelitis, unspecified site, unspecified type; [...] PM EST Office [place] [address] Hollie Ambriz MD [facility] [address] [place] [address] Scheduled Referrals Name Type Priority Associated Diagnoses Order Schedule Referral to Infectious Disease and [facility] Outpatient Referral Urgent Osteomyelitis, unspecified site, unspecified type Spinal cord abscess Ordered: 12/23/2022 documented as of this encounter Visit Diagnoses Diagnosis Osteomyelitis, unspecified site, unspecified type Spinal cord abscess Acute osteomyelitis, other specified site documented in this encounter Care Teams Software Engineer Backend Relationship Specialty Start Date End Date Lorna Bal APRN [address] [place] [address] PCP - General Family Medicine 05/27/18 documented as of this encounter
--- OUTSIDE RECORDS SUMMARY | 2023-12-04 12:36 | XMS_ITS | Encounter Summary ---
Author Organization [facility] [place] [address] Care Team Providers Care Blade Grader Operator Name Role Phone Lorna Bal APRN Primary Care Provider +1 -[phone] Reason for Referral * Diagnostic Test (Routine) - Closed Specialty Diagnoses / Procedures Referred By Contac t Referred To Contact Radiology Diagnoses Spinal abscess Procedures CT Lumbar Spine w Contrast Jamar Dasilva MD [facility] [place] [address] [facility] [place] [address] Referral ID Status Reason Start Date Expiration Date V isits Requested Visits Authorized [id number] Closed Specialty Service Requested 09/25/2022 03/27/2024 1 1 Reason for Visit * Diagnostic Test (Routine) - Closed Specialty Diagnoses / Procedures Referred By Contac t Referred To Contact Radiology Diagnoses Spinal abscess Procedures CT Lumbar Spine w Contrast Jamar Dasilva MD [facility] [place] [address] [facility] [place] [address] Referral ID Status Reason Start Date Expiration Date V isits Requested Visits Authorized [id number] Closed Specialty Service Requested 09/25/2022 03/27/2024 1 1 Encounter Details Date Type Department Care Team (Latest Contact Info) Description 09/26/2022 10:24 AM EDT - 09/26/2022 12:12 PM EDT Hospital [place] [address] Jamar Dasilva MD [facility] [place] [address] Spinal abscess Discharge Disposition: Home [...] PM EST Office Visit Infectious Disease at [facility] [place] [address] Hollie Ambriz MD [facility] [place] [address] documented as of this encounter Procedures Procedure [...] who have questions please contact the health resident care technician that requested your imaging first. ? Narrative [...] patients who have questions please contactthe health resident care technician that requested your imaging first. Jamar Dasilva [...] mLs documented in this encounter Care Teams Blade Grader Operator Relationship Specialty Start Date End Date Lorna Bal, [place] [address] [place] [address] PCP - General Family Medicine 05/27/18 documented as of this encounter
--- OUTSIDE RECORDS SUMMARY | 2023-12-04 12:36 | XMS_ITS | Encounter Summary ---
Author Organization [facility] Address [facility] [place] [address] Care Team Providers Care Green Chain Puller Name Role Phone Lorna Bal APRN Primary Care Provider +1 -[phone] Encounter Details Date Type Department Care Team (Late st Contact Info) Description 09/24/2022 Orders [place] [address] Hank Nunez PA [facility] [place] [address] Social History Tobacco Use Types Packs/Day Years [...] Patient Name: Tana Cavazos : 1995 MR#: [id number] Spoke with Anderson regarding concerns regarding overall plan for Tana. Recommended she attend her appointments in [place] in hope of guiding toward more definitive [...] PM EST Office [place] [address] Hollie Ambriz MD [facility] [place] [address] documented as of this encounter Visit Diagnoses Not on filedocumented in this encounter Care Teams Green Chain Puller Relationship Specialty Start Date End Date Lorna Bal APRN [address] [place] [address] PCP - General Family Medicine 05/27/18 documented as of this encounter
--- OUTSIDE RECORDS SUMMARY | 2023-12-04 12:36 | XMS_ITS | Encounter Summary ---
Author Organization [facility] [place] [address] Care Team Providers Care Director Child Abuse Therapy Name Role Phone Lorna Bal APRN Primary Care Provider +1 -[phone] Encounter Details Date Type Department Care Team (Late st Contact Info) Description 09/08/2022 Telephone [place] [address] Valentina Stanton Social History Tobacco Use Types [...] PM EST Office [place] [address] Hollie Ambriz MD [facility] [place] [address] documented as of this encounter Visit Diagnoses Not on filedocumented in this encounter Care Teams Director Child Abuse Therapy Relationship Specialty Start Date End Date Lorna Bal, ESTIMATOR PRINTING PLATE MAKING [address] [place] [address] PCP - General Family Medicine 05/27/18 documented as of this encounter
--- OUTSIDE RECORDS SUMMARY | 2023-12-04 12:36 | XMS_ITS | Encounter Summary ---
Author Organization [facility] [place] [address] Care Team Providers Care Financial Services Consultant Name Role Phone Lorna Bal APRN Primary Care Provider +1 -[phone] Reason for Referral * Diagnostic Test (Routine) - Closed Specialty Diagnoses / Procedures Referred By Contac t Referred To Contact Radiology Diagnoses Spinal abscess Procedures CT Lumbar Spine w Contrast George Tipton MD [facility] [place] [address] [facility] [place] [address] Referral ID Status Reason Start Date Expiration Date V isits Requested Visits Authorized [id number] Closed Specialty Service Requested 04/15/2023 10/14/2024 1 1 Encounter Details Date Type Department Care Team (Late st Contact Info) Description 04/15/2023 Notes [place] [address] George Tipton MD [facility] [place] [address] Social History Tobacco Use Types Packs/Day Years Used Date Smoking Tobacco: Never Smokeless Tobacco: Never Comments:NO SMOKERS IN THE H OME Alcohol Use Standard Drinks/Week Comments No 0 (1 standard drink = 0.6 oz pur e alcohol) [facility] Inpatient Questions Answer Date Recorded Does Anyone [...] PM EST Office [place] [address] Hollie Ambriz MD [facility] [place] [address] documented as of this encounter Results * [...] who have questions please contact the health ocular care technologist that requested your imaging first. ? Narrative [...] patients who have questions please contactthe health ocular care technologist that requested your imaging first. Keri Trevino MD IMG CT ORDERABLES documented in this encounter Visit Diagnoses Diagnosis Spinal abscess- Primary Acute osteomyelitis, other specified site Spinal abscess Acute osteomyelitis, other specified site documented in this encounter Care Teams Financial Services Consultant Relationship Specialty Start Date End Date Lorna Bal APRN [address] [place] [address] PCP - General Family Medicine 05/27/18 documented as of this encounter
--- OUTSIDE RECORDS SUMMARY | 2023-12-04 12:36 | XMS_ITS | Encounter Summary ---
Author Organization [facility] [place] [address] Care Team Providers Care Bed Setter Name Role Phone Lorna Bal APRN Primary Care Provider +1 -[phone] Encounter Details Date Type Department Care Team (Late st Contact Info) Description 09/24/2022 Telephone [place] [address] Valentina Stanton Social History Tobacco Use Types [...] PM EST Office [place] [address] Hollie Ambriz MD [facility] [place] [address] documented as of this encounter Visit Diagnoses Not on filedocumented in this encounter Care Teams Bed Setter Relationship Specialty Start Date End Date Lorna Bal, TRANSIT VEHICLE INSPECTOR [address] [place] [address] PCP - General Family Medicine 05/27/18 documented as of this encounter
--- OUTSIDE RECORDS SUMMARY | 2023-12-04 12:36 | XMS_ITS | Encounter Summary ---
[place] [address] Care Team Providers Care Placement Interviewer Name Role Phone Lorna Bal APRN Primary Care Provider +1 -[phone] Encounter Details Date Type Department Care Team (Latest Contact Info) Description 04/16/2023 Travel Social History Tobacco Use Types Packs/Day Years Used Date Smoking Tobacco: Never Smokeless Tobacco: Never Comments:NO SMOKERS IN THE H OME Alcohol Use Standard Drinks/Week Comments No 0 (1 standard drink = 0.6 oz pur e alcohol) [facility] Inpatient Questions Answer Date Recorded [...] PM EST Office [place] [address] Hollie Ambriz MD [facility] [place] [address] documented as of this encounter Visit Diagnoses Not on filedocumented in this encounter Care Teams Placement Interviewer Relationship Specialty Start Date End Date Lorna Bal APRN [address] [place] [address] PCP - General Family Medicine 05/27/18 documented as of this encounter
--- OUTSIDE RECORDS SUMMARY | 2023-12-04 12:36 | XMS_ITS | Encounter Summary ---
Author Organization [facility] Address [facility] [place] [address] Care Team Providers Care Audit Officer Name Role Phone Lorna Bal APRN Primary Care Provider +1 -[phone] Encounter Details Date Type Department Care Team (Late st Contact Info) Description 01/29/2023 1:00 PM EDT Office [place] [address] Reji Macdonald MD [facility] [place] [address] Spinal abscess Social History Tobacco Use Types [...] legal guardian. She has been seen at [facility] been seen by the orthopedic team and infectious diseases for extended periods of time. It is unclear as to what the long-term plan was for management of thisbut eventually apparently she made it to [place] after referral by infectious disease and then [...] All Drainage Procedures 06/25/2022 Mich Martino MD [facility] IR ALL DRAINAGE PROCEDURES 07/04/2022 IR All Drainage Procedures 07/04/2022 Mich Martino MD [facility] IR ALL DRAINAGE PROCEDURES 07/24/2022 IR All Drainage Procedures 07/24/2022 Anurag Kumar MD [facility] IR ALL DRAINAGE PROCEDURES 09/26/2022 IR All Drainage Procedures 09/26/2022 Jamaal Jenkins, DO [facility] IR DRAIN CHECK/CHANGE/REMOVE 07/01/2022 IR Drain Check/Change/Remove 07/01/2022 Jamaal Jenkins, DO [facility] IR DRAIN CHECK/CHANGE/REMOVE 08/11/2022 IR Drain Check/Change/Remove 08/11/2022 Piter Self MD [facility] IR DRAIN CHECK/CHANGE/REMOVE 08/25/2022 IR Drain Check/Change/Remove 08/25/2022 Jamaal Jenkins, DO [facility] IR DRAIN CHECK/CHANGE/REMOVE 09/10/2022 IR Drain Check/Change/Remove 09/10/2022 Mich Martino MD [facility] PRO APPLY OF HIP CASTS, TWO LEGS 08/15/2010 CAST APPLICATION, HIP SPICA, BOTH LEGS performed by BARRERA OLIVER at [facility] MAIN OR PRO I&D, POST SPINE, LUMB/SACR/LUMBOSAC N/A 05/20/2014 @I & D, OPEN, DEEP ABSCESS, LUMBAR, SACRAL, LUMBOSACRAL performed by Freddy Isbell MD at [facility] MAIN OR PRO I&D, POST SPINE, LUMB/SACR/LUMBOSAC N/A 05/26/2014 @I & D, OPEN, DEEP ABSCESS, LUMBAR, SACRAL, LUMBOSACRAL performed by Freddy Isbell MD at [facility] MAIN OR PRO IMPACT TOOTH REMOV COMP BONY N/A 06/14/2018 SURGICAL EXTRACTIONS, REMOVAL OF IMPACTED TOOTH, COMPLETELY BONY (WRVU 1.93) performed by Keith Cotton MD at [facility] OSC PRO OSTEOTOMY FEMUR SHAFT/SUPRACONDY 08/15/2010 ??OSTEOTOMY, FEMUR SHAFT OR SUPRACONDYLAR W/O FIXATION performed by BARRERA OLIVER at [facility] MAIN OR PRO RECONSTRUC HIP SOCKET, RESEC FEM HEAD 08/15/2010 ??ACETABULOPLASTY (GIRDLESTONE), RESECTION FEMORAL HEAD, BILATERAL performed by BARRERA OLIVER [facility] MAIN OR PRO REMOVAL DEEP IMPLANT 08/15/2010 REMOVAL IMPLANT, DEEP, BRUNO performed by BARRERA OLIVER at [facility] MAIN OR PRO REMOVAL ERUPTED TOOTH WITH ELEVATION OF MUCOPERIOSTEAL FLAP N/A 06/14/2018 SURGICAL EXTRACTIONS REQUIRING ELEVATION OF MUCOPERIOSTEAL FLAP AND REMOVAL OF BONE OR SECTION OF TOOTH (WRVU 1.09) performed by Keith Cotton MD at [facility] OSC PRO REMOVE INFUSN DEVICE/PUMP N/A 05/11/2014 REMOVAL OF SPINE INFUSION PUMP performed by Jamaal Samuel MD at [facility] MAIN OR PRO REMOVE SPINAL CANAL CATHETER N/A 05/11/2014 REMOVAL OF INTRATHECAL OR EPIDURAL CATHETER performed by Jamaal Samuel MD at [facility] MAIN OR PRO REPR, DURAL/CSF LEAK, NOT REQ LAMINECTOMY N/A 05/20/2014 @REPAIR DURAL\CSF LEAK,NOT REQUIRING LAMINECTOMY performed by Freddy Isbell MD at [facility] MAIN OR Social History Socioeconomic History [...] [Transparent Dressings] Itching and Dermatitis Please use [id number] Cyclobenzaprine Other Reaction(s): Not available Penicillins Current [...] PM EST Office [place] [address] Hollie Ambriz MD [facility] [place] [address] documented as of this encounter Visit Diagnoses Diagnosis Spinal abscess Acute osteomyelitis, other specified site documented in this encounter Care Teams Audit Officer Relationship Specialty Start Date End Date Lorna Bal APRN [address] [place] [address] PCP - General Family Medicine 05/27/18 documented as of this encounter
--- OUTSIDE RECORDS SUMMARY | 2023-12-04 12:36 | XMS_ITS | Encounter Summary ---
Author Organization [facility] [place] [place] [address] Care Team Providers Care Flight Communications Officer Name Role Phone Lorna Bal APRN Primary Care Provider +1 -[phone] Encounter Details Date Type Department Care Team (Late st Contact Info) Description 09/03/2022 Notes [place] [phone] Mesha Mckeon, RN Social History Tobacco Use [...] RN - 09/03/2022 11:59 PM EDT This marine underwriter received called from patient's mom about concerns about her daughter's drains. She reported that they have stopped draining and was wondering how long we were keeping it in. I instructed her to call IR for a drain check. Mom verbalized understanding. She also stated that she took her to [place] for a second opinion. That doctor in [place] was concerned about pt and wanted a call back as well. This marine underwriter sent inbasket and routed secretaries notes from the Doctor in [place] to Shawn Woodard. Mom is very concerned about her daughters infection. Her end date is on 09/04. documented in this encounter Plan of Treatment Upcoming Encounters Date Type Department Care Team (Late st Contact Info) Description 06/02/2024 12:30 PM EST Office [place] [address] Hollie Ambriz MD [facility] [place] [address] documented as of this encounter Visit Diagnoses Not on filedocumented in this encounter Care Teams Flight Communications Officer Relationship Specialty Start Date End Date Lorna Bal APRN [address] [place] [address] PCP - General Family Medicine 05/27/18 documented as of this encounter
--- OUTSIDE RECORDS SUMMARY | 2023-12-04 12:36 | XMS_ITS | Encounter Summary ---
[place] [address] Care Team Providers Care Ballistics Expert Name Role Phone Lorna Bal APRN Primary Care Provider +1 -[phone] Encounter Details Date Type Department Care Team [...] PM EST Office [place] [address] Hollie Ambriz MD [facility] [place] [address] documented as of this encounter Visit Diagnoses Not on filedocumented in this encounter Care Teams Ballistics Expert Relationship Specialty Start Date End Date Lorna Bal APRN [address] [place] [address] PCP - General Family Medicine 05/27/18 documented as of this encounter
--- OUTSIDE RECORDS SUMMARY | 2023-12-04 12:36 | XMS_ITS | Encounter Summary ---
Author Organization [facility] [address] Care Team Providers Care Truss Builder Name Role Phone Lorna Bal APRN Primary Care Provider +1 -[phone] Reason for Referral * Diagnostic Test (Routine) - Closed Specialty Diagnoses / Procedures Referred By Contac t Referred To Contact Radiology Diagnoses Spinal abscess Procedures IR All Drainage Procedures IR All Biopsy Procedures Jamar Dasilva MD [facility] [place] [address] [place] [address] Referral ID Status Reason Start Date Expiration Date V isits Requested Visits Authorized [id number] Closed Specialty Service Requested 09/26/2022 03/28/2024 1 1 Encounter Details Date Type Department Care Team (Late st Contact Info) Description 09/26/2022 Orders [place] [address] Jamar Dasilva MD [facility] [place] [address] Spinal abscess Social History Tobacco [...] PM EST Office [place] [address] Hollie Ambriz MD [facility] DR [place] [address] documented as of this encounter Results * [...] present throughout the procedure. Jamar Dasilva [place] [facility] [place] * AFB culture Back (09/26/2022 12:49 PM EDT) Acid Fast Bacilli Culture No Acid Fast Bacilli isolated [facility] Acid Fast Stain No Acid Fast Bacilli seen [facility] Back 09/26/2022 12:4 9 PM EDT 09/26/2022 2:05 PM EDT Narrative Resulting Agency Comment Spec In Lab Jamar Dasilva MD [facility] - [facility] ORDERABLES [facility] [place] [address] documented in this encounter Visit Diagnoses Diagnosis Spinal abscess Acute osteomyelitis, other specified site Spinal abscess Acute osteomyelitis, other specified site documented in this encounter Care Teams Truss Builder Relationship Specialty Start Date End Date Lorna Bal APRN [address] [place] [address] PCP - General Family Medicine 05/27/18 documented as of this encounter
--- OUTSIDE RECORDS SUMMARY | 2023-12-04 12:36 | XMS_ITS | Encounter Summary ---
[place] [address] Care Team Providers Care Freelance Displayer Name Role Phone Lorna Bal APRN Primary Care Provider +1 -[phone] Reason for Referral * Consultation (Routine) - Authorized Specialty Diagnoses / Procedures Referred By Contmonica t Referred To Contact Gastroenterology Diagnoses Constipation, unspecified constipation type constipation Lorna Bal APRN [address] [place] [address] [facility] [address] [place] [id number] Referral ID Status Reason Start Date Expiration Date Visits Requested Visits Authorized [id number] Authorized Consult, Test & Treat PCP Updated and/or Approved 01/30/2023 01/30/2024 12 12 Encounter Details Date Type Department Care Team (Latest Contact Info) Description 01/30/2023 Transcribe Orders eDH Incoming Referrals [phone] Lorna Bal APRN [address] [place], [place] [id number] Constipation, unspecified constipation type Social History Tobacco [...] PM EST Office [place] [address] Hollie Ambriz MD [facility] [place] [address] Scheduled Referrals Name Type Priority Associated Diagnoses Order Schedule Referral to Gastroenterology Outpatient Referral Routine Constipation, unspecified constipation type Ordered: 01/30/2023 documented as of this encounter Visit Diagnoses Diagnosis Constipation, unspecified constipation type documented in this encounter Care Teams Freelance Displayer Relationship Specialty Start Date End Date Lorna Bal APRN [address] [place] [address] PCP - General Family Medicine 05/27/18 documented as of this encounter
--- OUTSIDE RECORDS SUMMARY | 2023-12-04 12:36 | XMS_ITS | Encounter Summary ---
Author Organization [facility] [place] [address] Care Team Providers Care Chassis Mechanic Name Role Phone Lorna Bal APRN Primary Care Provider +1 -[phone] Encounter Details Date Type Department Care Team (Late st Contact Info) Description 09/03/2022 Telephone [place] [phone] Halima García Social History Tobacco Use Types Packs/Day Years Used Date Smoking Tobacco: Never Smokeless Tobacco: Never Comments:NO SMOKERS IN THE H OME Alcohol Use Standard Drinks/Week Comments No 0 (1 standard drink = 0.6 oz pur e alcohol) [facility] Inpatient Questions Answer Date Recorded [...] return call to Dr. Ila Hadley from [facility]. Requesting a call back to discuss pt dx, 2nd option and how she can best assist with the pt's care. Dr. Hadley [phone]. Thanks Halima documented in this encounter Plan of Treatment Upcoming Encounters Date Type Department Care Team (Late st Contact Info) Description 06/02/2024 12:30 PM EST Office [place] [address] Hollie Ambriz MD [facility] [place] [address] documented as of this encounter Visit Diagnoses Not on filedocumented in this encounter Care Teams Chassis Mechanic Relationship Specialty Start Date End Date Lorna Bal APRN [address] [place] [address] PCP - General Family Medicine 05/27/18 documented as of this encounter
--- OUTSIDE RECORDS SUMMARY | 2023-12-04 12:36 | XMS_ITS | Encounter Summary ---
[place] [address] Care Team Providers Care Plastering Contractor Name Role Phone Lorna Bal APRN Primary Care Provider +1 -[phone] Encounter Details Date Type Department Care Team (Latest Contact Info) Description 08/25/2022 4:30 PM EDT Laboratory Appointment Lab [address] [address] Spinal abscess; Bacteremia; E coli infection; Soft [...] PM EST Office Visit [place] [address] Hollie Ambriz MD [facility] [place] [address] documented as of this encounter Visit Diagnoses Diagnosis Spinal abscess Acute osteomyelitis, other specified site Bacteremia E coli infection Other and unspecified Escherichia coli (E. coli) Soft tissue abscess Cellulitis and abscess of other specified site Muscle abscess Other disorder of muscle, ligament, and fascia documented in this encounter Care Teams Plastering Contractor Relationship Specialty Start Date End Date Lorna Bal APRN [address] [place] [address] PCP - General Family Medicine 05/27/18 documented as of this encounter
--- OUTSIDE RECORDS SUMMARY | 2023-12-04 12:36 | XMS_ITS | Encounter Summary ---
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 I had an extensive conversation with [facility] provider regarding patient's clinical course at and [...] for drain check and spine surgery at [facility] for possible surgical Options. They would like to continue receiving ID care at [facility] at least until surgical options are explored at outside institution. Plan Based on patient clinical presentation, review of data and chart my plan is as follows: -Continue doxycycline 100 mg PO BID -Avoid sunlight exposure while on doxyxycline -Pending evaluation by surgery at [facility], at that point they will decide if [...] Doan MD Infectious Disease Fellow [facility] 09/14/2022 Chronic suppression Behaving as infection [...] PM EST Office [place] [address] Hollie Ambriz MD [facility] [place] [address] documented as of this encounter Visit Diagnoses Diagnosis Spinal abscess Acute osteomyelitis, other specified site custodial 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 Encounter for long-term (current) use of antibiotics Soft tissue abscess Cellulitis and abscess of other specified site documented in this encounter Care Teams Stacker And Sorter Operator Relationship Specialty Start Date End Date Lorna Bal APRN [address] [place] [address] PCP - General Family Medicine 05/27/18 documented as of this encounter
--- OUTSIDE RECORDS SUMMARY | 2023-12-04 12:36 | XMS_ITS | Encounter Summary ---
Author Organization [place] [address] Care Team Providers Care Power Brake Rebuilder Name Role Phone Lorna Bal APRN Primary Care Provider +1 -[phone] Reason for Referral * Diagnostic Test (Routine) [...] Check/Change/Remove Jamaal Jenkins, [facility] [place] [address] [facility] [place] [address] Referral ID Status Reason Start Date Expiration Date Visits Requested Visits Authorized [id number] Pending Review Specialty Service Requested 08/25/2022 02/26/2024 [...] Jenkins, [facility] [place] [address] [facility] [place] [address] Referral ID Status Reason Start Date Expiration Date Visits Requested Visits Authorized [id number] Pending Review Specialty Service Requested 08/25/2022 02/26/2024 1 1 Encounter Details Date Type Department Care Team (Latest Contact Info) Description 09/10/2022 10:49 AM EDT - 09/10/2022 11:59 PM EDT Hospital [place] [address] aJmaal Jenkins, [facility] [place] [address] Spinal abscess; Abscess; Contracture of left elbow; [...] drink = 0.6 oz pur e alcohol) [facility] Inpatient Questions Answer Date Recorded Does [...] Qiu RN - 09/10/2022 12:55 PM EDT [facility] Vascular and Interventional Radiology Discharge [...] is during regular office hours, please call [phone]. If it is after regular office hours, or on weekends or holidays, please call [phone] and ask to speak to the Reconciliation Manager brazer controlled atmospheric furnace for Interventional Radiology. You may resume your [...] tablet Take 2 tablets by mouth nightly. doxycycline (Vibramycin) 100 mg capsule Take 1 [...] of : 1995 AGE: 27 y.o. Address: [address] [place] [address] Phone: [phone] (home) Mobile: Telephone Information: Referring Provider: Jamaal [...] Questions Answers Where will study be performed? [facility] Radiology [120] Reason for exam and clinical history: Paraspinal abscesses status post drain palcement. Persistent collections. Drain repositioned 08/25. Routine 3-week drain check. Is the patient ? No Is the patient on anticoagulant / antiplatelet therapy ? No Allergies Allergen Reactions ??? Fluoxetine Other (See Comments) HIVES, HEART RACES ??? Tegaderm [Transparent Dressings] Itching and Dermatitis Please use [id number] ??? Penicillins Pertinent PMH: Patient Active Problem [...] All Drainage Procedures 06/25/2022 Mich Martino MD [facility] INTERVENTIONL RAD ??? IR ALL DRAINAGE PROCEDURES 07/04/2022 IR All Drainage Procedures 07/04/2022 Mich Martino MD [facility] INTERVENTIONL RAD ??? IR ALL DRAINAGE PROCEDURES 07/24/2022 IR All Drainage Procedures 07/24/2022 Anurag Kumar MD [facility] INTERVENTIONL RAD ??? IR DRAIN CHECK/CHANGE/REMOVE 07/01/2022 IR Drain Check/Change/Remove 07/01/2022 Jamaal Jenkins, DO [facility] INTERVENTIONL RAD ??? IR DRAIN CHECK/CHANGE/REMOVE 08/11/2022 IR Drain Check/Change/Remove 08/11/2022 Piter Self MD [facility] INTERVENTIONL RAD ??? IR DRAIN CHECK/CHANGE/REMOVE 08/25/2022 IR Drain Check/Change/Remove 08/25/2022 Jamaal Jenkins, DO [facility] INTERVENTIONL RAD ??? PRO APPLY OF HIP CASTS, TWO LEGS 08/15/2010 CAST APPLICATION, HIP SPICA, BOTH LEGS performed by BARRERA OLIVER at [facility] OR ? ? PRO I&D, POST SPINE, LUMB/SACR/LUMBOSAC N/A 05/20/2014 @I & D, OPEN, DEEP ABSCESS, LUMBAR, SACRAL, LUMBOSACRAL performed by Freddy Isbell MD at [facility] OR ? ? PRO I&D, POST SPINE, LUMB/SACR/LUMBOSAC N/A 05/26/2014 @I & D, OPEN, DEEP ABSCESS, LUMBAR, SACRAL, LUMBOSACRAL performed by Freddy Isbell MD at [facility] OR ??? PRO IMPACT TOOTH REMOV COMP BONY N/A 06/14/2018 SURGICAL EXTRACTIONS, REMOVAL OF IMPACTED TOOTH, COMPLETELY BONY (WRVU 1.93) performed by Keith Cotton MD at [facility] OSC ??? PRO OSTEOTOMY FEMUR SHAFT/SUPRACONDY 08/15/2010 ??OSTEOTOMY, FEMUR SHAFT OR SUPRACONDYLAR W/O FIXATION performed by BARRERA OLIVER at [facility] OR ??? PRO RECONSTRUC HIP SOCKET, RESEC FEM HEAD 08/15/2010 ??ACETABULOPLASTY (GIRDLESTONE), RESECTION FEMORAL HEAD, BILATERAL performed by BARRERA OLIVER [facility] OR ??? PRO REMOVAL DEEP IMPLANT 08/15/2010 REMOVAL IMPLANT, DEEP, BRUNO performed by BARRERA OLIVER at [facility] OR ??? PRO REMOVAL ERUPTED TOOTH WITH ELEVATION OF MUCOPERIOSTEAL FLAP N/A 06/14/2018 SURGICAL EXTRACTIONS REQUIRING ELEVATION OF MUCOPERIOSTEAL FLAP AND REMOVAL OF BONE OR SECTION OF TOOTH (WRVU 1.09) performed by Keith Cotton MD at [facility] ??? PRO REMOVE INFUSN DEVICE/PUMP N/A 05/11/2014 REMOVAL OF SPINE INFUSION PUMP performed by Jamaal Samuel MD at [facility] MAIN OR ??? PRO REMOVE SPINAL CANAL CATHETER N/A 05/11/2014 REMOVAL OF INTRATHECAL OR EPIDURAL CATHETER performed by Jamaal Samuel MD at [facility] MAIN OR ??? PRO REPR, DURAL/CSF LEAK, NOT REQ LAMINECTOMY N/A 05/20/2014 @REPAIR DURAL\CSF LEAK,NOT REQUIRING LAMINECTOMY performed by Freddy Isbell MD at [facility] MAIN OR Medications: Current Outpatient Medications [...] PM EST Office [place] [address] Hollie Ambriz MD [facility] [place] [address] documented as of this encounter Procedures Procedure [...] mLs documented in this encounter Care Teams Power Brake Rebuilder Relationship Specialty Start Date End Date Lorna Bal, [place] [address] [place] [address] PCP - General Family Medicine 05/27/18 documented as of this encounter
--- OUTSIDE RECORDS SUMMARY | 2023-12-04 12:36 | XMS_ITS | Encounter Summary ---
Author Organization [facility] [place] [address] Care Team Providers Care Surveyor Chain Helper Name Role Phone Lorna Bal APRN Primary Care Provider +1 -[phone] Encounter Details Date Type Department Care Team (Late st Contact Info) Description 09/26/2022 Telephone [place] [address] Valentina Stanton Social History Tobacco Use Types [...] caregiver Fernanda once we know at number [phone]. This was okay per pt Mom. documented in this encounter Plan of Treatment Upcoming Encounters Date Type Department Care Team (Late st Contact Info) Description 06/02/2024 12:30 PM EST Office [place] [address] Hollie Ambriz MD [facility] [place] [address] documented as of this encounter Visit Diagnoses Not on filedocumented in this encounter Care Teams Surveyor Chain Helper Relationship Specialty Start Date End Date Lorna Bal APRN [address] [place] [address] PCP - General Family Medicine 05/27/18 documented as of this encounter
--- OUTSIDE RECORDS SUMMARY | 2023-12-04 12:36 | XMS_ITS | Encounter Summary ---
Author Organization [facility] [place] [address] Care Team Providers Care Manager Business Name Role Phone Lorna Bal APRN Primary Care Provider +1 -[phone] Encounter Details Date Type Department Care Team (Late st Contact Info) Description 09/24/2022 Telephone [place] [address] Sergey Keane MD [facility] [place] [address] Social History Tobacco Use Types Packs/Day Years Used Date Smoking Tobacco: Never Smokeless Tobacco: Never Comments:NO SMOKERS IN THE H OME Alcohol Use Standard Drinks/Week Comments No 0 (1 standard drink = 0.6 oz pur e alcohol) [facility] Inpatient Questions Answer Date Recorded [...] stable to go to her appt in [place] tomorrow with NSG to show them the lesions and see if they can do something about it. I discussed I had limited ability to assist and that a change of antibiotics without new cultures and drainage was not a great idea and the I would be happy to work with either IR here or NSG in [place] to assist. Discussed warning signs to present to the ED. I suspect she just has continued inflammation of the hardware and now that the drain is out it is reaccumulating. Likely will need a chronic drain or surgery. This will be up to NSG on [place]. * Telephone Encounter - Maryanne Sarabia RN - 09/24/2022 1:41 PM EDT Patient's Mother, Javed, called. Tnaa's drains came out a little over a [...] Tana has a neurosurgery appt tomorrow in [place]. Mom can be reached at [phone] until 5 pm. Then after 5 pm call Fannie Villarreal [phone]. Note forwarded to Dr. Gerber Dasilva and Dr. Sergey Doan. documented in this encounter Plan of Treatment Upcoming Encounters Date Type Department Care Team (Late st Contact Info) Description 06/02/2024 12:30 PM EST Office Visit [place] [address] Hollie Ambriz MD [facility] [place] [address] documented as of this encounter Visit Diagnoses Not on filedocumented in this encounter Care Teams Manager Business Relationship Specialty Start Date End Date Lorna Bal APRN [address] [place] [address] PCP - General Family Medicine 05/27/18 documented as of this encounter
--- OUTSIDE RECORDS SUMMARY | 2023-12-04 12:36 | XMS_ITS | Encounter Summary ---
Author Organization [facility] [place] [address] Care Team Providers Care White Lead Filterer Name Role Phone Lorna Bal APRN Primary Care Provider +1 -[phone] Encounter Details Date Type Department Care Team (Late st Contact Info) Description 09/25/2022 Telephone [place] [address] Valentina Stanton Social History Tobacco Use Types [...] PM EST Office [place] [address] Hollie Ambriz MD [facility] [address] [place] [address] documented as of this encounter Visit Diagnoses Not on filedocumented in this encounter Care Teams White Lead Filterer Relationship Specialty Start Date End Date Lorna Bal, BUSINESS WRITER [address] [place] [address] PCP - General Family Medicine 05/27/18 documented as of this encounter
--- OUTSIDE RECORDS SUMMARY | 2023-12-04 12:36 | XMS_ITS | Encounter Summary ---
Author Organization [facility] [place] [address] Care Team Providers Care Natural Science Curator Name Role Phone Lorna Bal APRN Primary Care Provider +1 -[phone] Reason for Referral * Consultation (Routine) - Authorized Specialty Diagnoses / Procedures Referred By Contac t Referred To Contact Wound Care Diagnoses Osteomyelitis, unspecified site, unspecified type Spinal cord abscess Lorna Bal APRN [address] [place] [address] [facility] [place] [address] Referral ID Status Reason Start Date Expiration Date Visits Requested Visits Authorized [id number] Authorized Consult, Test & Treat PCP Updated and/or Approved 12/26/2022 12/26/2023 12 12 Encounter Details Date Type Department Care Team (Latest Contact Info) Description 12/26/2022 Transcribe Orders eDH Incoming Referrals [phone] Lorna Bal APRN [address] [place] [address] Osteomyelitis, unspecified site, unspecified type; Spinal cord abscess Social History Tobacco Use Types Packs/Day Years Used Date Smoking Tobacco: Never Smokeless Tobacco: Never Comments:NO SMOKERS IN THE H OME Alcohol Use Standard Drinks/Week Comments No 0 (1 standard drink = 0.6 oz pur e alcohol) [facility] Inpatient Questions Answer Date Recorded Does Anyone [...] PM EST Office [place] [address] Hollie Ambriz MD [facility] [address] [place] [address] Scheduled Referrals Name Type Priority Associated Diagnoses Orde r Schedule Referral to Plastic Surgery Outpatient Referral Routine Osteomyelitis, unspecified site, unspecified type Spinal cord abscess Ordered: 12/26/2022 documented as of this encounter Visit Diagnoses Diagnosis Osteomyelitis, unspecified site, unspecified type Spinal cord abscess Acute osteomyelitis, other specified site documented in this encounter Care Teams Natural Science Curator Relationship Specialty Start Date End Date Lorna Bal APRN [address] [place] [address] PCP - General Family Medicine 05/27/18 documented as of this encounter
--- OUTSIDE RECORDS SUMMARY | 2023-12-04 12:36 | XMS_ITS | Encounter Summary ---
[facility] [place] [address] Care Team Providers Care Abrasive Grader Name Role Phone Lorna Bal APRN Primary Care Provider +1 -[phone] Encounter Details Date Type Department Care Team (Late st Contact Info) Description 03/30/2023 Telephone [place] [phone] Halima García Social History Tobacco Use Types [...] 8:44 AM EST Erika - pharmacist CB: [phone] [facility] [place] - [place], [place] - [address] [facility]. Erika from [facility] called Dr. Tipton isn't setup with [place] medicaid so the script for bactrim won't go through. The pharmacy is requesting a new script from the attending. Thanks Halima documented in this encounter Plan of Treatment Upcoming Encounters Date Type Department Care Team (Late st Contact Info) Description 06/02/2024 12:30 PM EST Office [place] [address] Hollie Ambriz MD [facility] [place] [address] documented as of this encounter Visit Diagnoses Not on filedocumented in this encounter Care Teams Abrasive Grader Relationship Specialty Start Date End Date Lorna Bal APRN [address] [place] [address] PCP - General Family Medicine 05/27/18 documented as of this encounter
--- OUTSIDE RECORDS SUMMARY | 2023-12-04 12:36 | XMS_ITS | Encounter Summary ---
Author Organization [facility] [place] [address] Care Team Providers Care Hardboard Factory Worker Name Role Phone Lorna Bal APRN Primary Care Provider +1 -[phone] Encounter Details Date Type Department Care Team (Late st Contact Info) Description 10/27/2022 Telephone [place] [address] Halima García Social History Tobacco Use Types Packs/Day Years Used Date Smoking Tobacco: Never Smokeless Tobacco: Never Comments:NO SMOKERS IN THE H OME Alcohol Use Standard Drinks/Week Comments No 0 (1 standard drink = 0.6 oz pur e alcohol) [facility] Inpatient Questions Answer Date Recorded Does [...] PM EST Office [place] [address] Hollie Ambriz MD [facility] [address] [place] [address] documented as of this encounter Visit Diagnoses Not on filedocumented in this encounter Care Teams Hardboard Factory Worker Relationship Specialty Start Date End Date Lorna Bal APRN [address] [place] [address] PCP - General Family Medicine 05/27/18 documented as of this encounter
--- OUTSIDE RECORDS SUMMARY | 2023-12-04 12:36 | XMS_ITS | Encounter Summary ---
Author Organization [facility] Address [place] [address] Care Team Providers Care Demolition Hammer Operator Name Role Phone Lorna Bal APRN Primary Care Provider +1 [phone] Encounter Details Date Type Department Care Team (Late st Contact Info) Description 09/08/2022 Telephone [place] [address] Sergey Keane MD [facility] [place] [address] Social History Tobacco Use Types Packs/Day Years [...] moving forward. Patient was recently seen at [facility] for a second opinion. I had the opportunity to speak with the attending physician Dr Patel on 09/03. At the time we discussed Mrs Cavazos clinical course and therapies provided here at [facility]. After our conversation she mentioned that she [...] PM EST Office [place] [address] Hollie Ambriz MD [facility] [place] [address] documented as of this encounter Visit Diagnoses Not on filedocumented in this encounter Care Teams Demolition Hammer Operator Relationship Specialty Start Date End Date Lorna Bal APRN [address] [place] [address] PCP - General Family Medicine 05/27/18 documented as of this encounter
--- OUTSIDE RECORDS SUMMARY | 2023-12-04 12:36 | XMS_ITS | Encounter Summary ---
Author Organization [facility] [place] [address] Care Team Providers Care Pharmacy Affairs Assistant Name Role Phone Lorna Bal APRN Primary Care Provider +1 -[phone] Encounter Details Date Type Department Care Team (Late st Contact Info) Description 12/25/[address] [place] [phone] Sirisha Patino Social History Tobacco Use Types [...] PM EST Office Visit [place] [address] Hollie Ambriz MD [facility] [place] [address] documented as of this encounter Visit Diagnoses Not on filedocumented in this encounter Care Teams Pharmacy Affairs Assistant Relationship Specialty Start Date End Date Lorna Bal, [place] [address] [place] [address] PCP - General Family Medicine 05/27/18 documented as of this encounter
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
--- OUTSIDE RECORDS SUMMARY | 2023-12-04 12:36 | XMS_ITS | Encounter Summary ---
[place] [address] Care Team Providers Care 8Th Grade Mathematics Teacher Name Role Phone Lorna Bal APRN Primary Care Provider +1 -[phone] Encounter Details Date Type Department Care Team [...] PM EST Office [place] [address] Hollie Ambriz MD [facility] [place] [address] documented as of this encounter Visit Diagnoses Not on filedocumented in this encounter Care Teams 8Th Grade Mathematics Teacher Relationship Specialty Start Date End Date Lorna Bal APRN [address] [place] [address] PCP - General Family Medicine 05/27/18 documented as of this encounter
--- OUTSIDE RECORDS SUMMARY | 2023-12-04 12:36 | XMS_ITS | Encounter Summary ---
[place] [address] Care Team Providers Care Tongue And Groove Machine Setter Name Role Phone Lorna Bal APRN Primary Care Provider +1 -[phone] Encounter Details Date Type Department Care Team [...] PM EST Office [place] [address] Hollie Ambriz MD [facility] [place] [address] documented as of this encounter Visit Diagnoses Not on filedocumented in this encounter Care Teams Tongue And Groove Machine Setter Relationship Specialty Start Date End Date Lorna Bal APRN [address] [place] [address] PCP - General Family Medicine 05/27/18 documented as of this encounter
--- OUTSIDE RECORDS SUMMARY | 2023-12-04 12:36 | XMS_ITS | Encounter Summary ---
Author Organization [facility] [place] [address] Care Team Providers Care Fire Medic Name Role Phone Lorna Bal APRN Primary Care Provider +1 -[phone] Encounter Details Date Type Department Care Team (Late st Contact Info) Description 04/24/2023 Telephone Infectious Disease at [facility] [place] [address] Meme Morataya Social History Tobacco Use Types [...] PM EST Office Visit [place] [address] Hollie Ambriz MD [facility] [place] [address] documented as of this encounter Visit Diagnoses Not on filedocumented in this encounter Care Teams Fire Medic Relationship Specialty Start Date End Date Lorna Bal, SERVICE LINE BUS CLEANER [address] [place] [address] PCP - General Family Medicine 05/27/18 documented as of this encounter
--- OUTSIDE RECORDS SUMMARY | 2023-12-04 12:36 | XMS_ITS | Encounter Summary ---
Author Organization [facility] [place] [address] Care Team Providers Care Lumber Stacker Driver Name Role Phone Lorna Bal APRN Primary Care Provider +1 -[phone] Encounter Details Date Type Department Care Team (Late st Contact Info) Description 04/03/2023 Telephone [place] [address] Halima García Social History Tobacco Use Types Packs/Day Years Used Date Smoking Tobacco: Never Smokeless Tobacco: Never Comments:NO SMOKERS IN THE H OME Alcohol Use Standard Drinks/Week Comments No 0 (1 standard drink = 0.6 oz pur e alcohol) [facility] Inpatient Questions Answer Date Recorded Does [...] the lab orders were never sent to [facility]. I reviewed the lab orders and she mentioned the ESR was missing. Jack Varghese documented in this encounter Plan of Treatment Upcoming Encounters Date Type Department Care Team (Late st Contact Info) Description 06/02/2024 12:30 PM EST Office [place] [address] Hollie Ambriz MD [facility] [place] [address] documented as of this encounter Visit Diagnoses Diagnosis Spinal abscess Acute osteomyelitis, other specified site documented in this encounter Care Teams Lumber Stacker Driver Relationship Specialty Start Date End Date Lorna Bal APRN [address] [place] [address] PCP - General Family Medicine 05/27/18 documented as of this encounter
--- OUTSIDE RECORDS SUMMARY | 2023-12-04 12:37 | XMS_ITS | Encounter Summary ---
Author Organization [facility] [place] [address] Care Team Providers Care Log Data Technician Name Role Phone Lorna Bal APRN Primary Care Provider +1 -[phone] Reason for Referral * Home Health Care (Routine) - Denied Specialty Diagnoses / Procedures Referred By Contac t Referred To Contact Diagnoses Spinal abscess [place] [address] [facility] [address] [place] [phone] Referral ID Status Reason Start Date Expiration Date V isits Requested Visits Authorized [id number] Denied Consult, Test & Treat 08/06/2022 08/06/2023 999 0 Encounter Details Date Type Department Care Team (Late st Contact Info) Description 08/06/2022 Orders [place] [address] Curt Torres MD [place], [place] [id number] Spinal abscess Social History Tobacco Use Types [...] PM EST Office Visit [place] [address] Hollie Ambriz MD [facility] [address] [place] [address] Scheduled Referrals Name Type Priority Associated Diagnoses [...] documented as of this encounter Care Teams Log Data Technician Relationship Specialty Start Date End Date Lorna Bal APRN [address] [place] [address] PCP - General Family Medicine 05/27/18 documented as of this encounter
--- OUTSIDE RECORDS SUMMARY | 2023-12-04 12:37 | XMS_ITS | Encounter Summary ---
[place] [address] Care Team Providers Care Extracorporeal Technician Name Role Phone Lorna Bal APRN Primary Care Provider +1 [phone] Reason for Referral * Diagnostic Test (Routine) - New Request Specialty Diagnoses / Procedures Referred By Contac t Referred To Contact Radiology Diagnoses Spinal abscess Procedures IR Drain Check/Change/Remove Lucho Burciaga MD [facility] [place] [address] [place] [address] Referral ID Status Reason Start Date Expiration Date Visits Requested Visits Authorized [id number] New Request Specialty Service Requested 07/24/2022 01/25/2024 1 1 Reason for Visit * Diagnostic Test (Routine) - New Request Specialty Diagnoses / Procedures Referred By Contac t Referred To Contact Radiology Diagnoses Spinal abscess Procedures IR Drain Check/Change/Remove Lucho Burciaga MD [facility] [place] [address] [facility] [address] [place] [address] Referral ID Status Reason Start Date Expiration Date Visits Requested Visits Authorized [id number] New Request Specialty Service Requested 07/24/2022 01/25/2024 1 1 Encounter Details Date Type Department Care Team (Latest Contact Info) Description 08/11/2022 11:53 AM EDT - 08/11/2022 11:59 PM EDT Hospital Encounter [place] [address] Anurag Kumar MD [facility] [place] [address] Spinal abscess Discharge Disposition: Home [...] is during regular office hours, please call [phone]. If it is after regular office hours, or on weekends or holidays, please call [phone] and ask to speak to the Consumer Services Consultant supervisor conditioning yard for Interventional Radiology. XX You have received [...] tablet Take 2 tablets by mouth nightly. levoFLOXacin (Levaquin) 750 mg tablet Take 1 [...] of : 1995 AGE: 27 y.o. [address]: [address] [place] [address] Phone: [phone] (home) Mobile: Telephone Information: Referring Provider: Lucho C Stoner REASON FOR VISIT: Order Questions Answers Where will study be performed? [facility] Radiology [120] Reason for exam and clinical history: Sacral and L2-L3 soft tissuel fluid collections Is the patient ? No Is the patient on anticoagulant / antiplatelet therapy ? No Allergies Allergen Reactions ??? Fluoxetine Other (See Comments) HIVES, HEART RACES ??? Tegaderm [Transparent Dressings] Itching and Dermatitis Please use [id number] ??? Penicillins Pertinent PMH: Patient Active Problem [...] Questions Answers Where will study be performed? [facility] Radiology [120] Reason for exam [...] All Drainage Procedures 06/25/2022 Mich Martino MD [facility] INTERVENTIONL RAD ??? IR ALL DRAINAGE PROCEDURES 07/04/2022 IR All Drainage Procedures 07/04/2022 Mich Martino MD [facility] INTERVENTIONL RAD ??? IR ALL DRAINAGE PROCEDURES 07/24/2022 IR All Drainage Procedures 07/24/2022 Anurag Kumar MD [facility] INTERVENTIONL RAD ??? IR DRAIN CHECK/CHANGE/REMOVE 07/01/2022 IR Drain Check/Change/Remove 07/01/2022 Jamaal Jenkins, DO [facility] INTERVENTIONL RAD ??? PRO APPLY OF HIP CASTS, TWO LEGS 08/15/2010 CAST APPLICATION, HIP SPICA, BOTH LEGS performed by BARRERA OLIVER at [facility] MAIN OR ? ? PRO I&D, POST SPINE, LUMB/SACR/LUMBOSAC N/A 05/20/2014 @I & D, OPEN, DEEP ABSCESS, LUMBAR, SACRAL, LUMBOSACRAL performed by Freddy Isbell MD at [facility] OR ? ? PRO I&D, POST SPINE, LUMB/SACR/LUMBOSAC N/A 05/26/2014 @I & D, OPEN, DEEP ABSCESS, LUMBAR, SACRAL, LUMBOSACRAL performed by Freddy Isbell MD at [facility] MAIN OR ??? PRO IMPACT TOOTH REMOV COMP BONY N/A 06/14/2018 SURGICAL EXTRACTIONS, REMOVAL OF IMPACTED TOOTH, COMPLETELY BONY (WRVU 1.93) performed by Keith Cotton MD at [facility] OSC ??? PRO OSTEOTOMY FEMUR SHAFT/SUPRACONDY 08/15/2010 ??OSTEOTOMY, FEMUR SHAFT OR SUPRACONDYLAR W/O FIXATION performed by BARRERA OLIVER at [facility] MAIN OR ??? PRO RECONSTRUC HIP SOCKET, RESEC FEM HEAD 08/15/2010 ??ACETABULOPLASTY (GIRDLESTONE), RESECTION FEMORAL HEAD, BILATERAL performed by BARRERA OLIVER [facility] OR ??? PRO REMOVAL DEEP IMPLANT 08/15/2010 REMOVAL IMPLANT, DEEP, BRUNO performed by BARRERA OLIVER at [facility] OR ??? PRO REMOVAL ERUPTED TOOTH WITH ELEVATION OF MUCOPERIOSTEAL FLAP N/A 06/14/2018 SURGICAL EXTRACTIONS REQUIRING ELEVATION OF MUCOPERIOSTEAL FLAP AND REMOVAL OF BONE OR SECTION OF TOOTH (WRVU 1.09) performed by Keith Cotton MD at [facility] OSC ??? PRO REMOVE INFUSN DEVICE/PUMP N/A 05/11/2014 REMOVAL OF SPINE INFUSION PUMP performed by Jamaal Samuel MD at [facility] MAIN OR ??? PRO REMOVE SPINAL CANAL CATHETER N/A 05/11/2014 REMOVAL OF INTRATHECAL OR EPIDURAL CATHETER performed by Jamaal Samuel MD at [facility] MAIN OR ??? PRO REPR, DURAL/CSF LEAK, NOT REQ LAMINECTOMY N/A 05/20/2014 @REPAIR DURAL\CSF LEAK,NOT REQUIRING LAMINECTOMY performed by Freddy Isbell MD at [facility] MAIN OR Social History and Habits: Social [...] PM EST Office Visit [place] [address] Hollie Ambriz MD [facility] [place] [address] documented as of this encounter Procedures Procedure [...] mg documented in this encounter Care Teams Extracorporeal Technician Relationship Specialty Start Date End Date Lorna Bal APRN [address] [place] [id number] PCP - General Family Medicine 05/27/18 documented as of this encounter
--- OUTSIDE RECORDS SUMMARY | 2023-12-04 12:37 | XMS_ITS | Encounter Summary ---
Author Organization [facility] Address [facility] [place] [address] Care Team Providers Care Livestock Farmers Name Role Phone Lorna Bal APRN Primary Care Provider [phone] [phone] Encounter Details Date Type Department Care Team (Late st Contact Info) Description 08/07/2022 1:00 PM EDT TH Visit (TeleHealth) [place] [phone] Lilli Joy APRN [facility] [place] [address] Spinal abscess; Acute hematogenous osteomyelitis, unspecified site; Escherichia coli infection; Pseudomonas infection Social History Tobacco Use Types Packs/Day Years Used Date Smoking Tobacco: Never Smokeless Tobacco: Never Comments:NO SMOKERS IN THE H OME Alcohol Use Standard Drinks/Week Comments No 0 (1 standard drink = 0.6 oz pur e alcohol) [facility] Inpatient Questions Answer Date Recorded Does Anyone [...] this encounter Progress Notes * Lilli Joy, THEATRICAL TROUPER - 08/07/2022 1:00 PM EDT .. INFECTIOUS [...] [Transparent Dressings] Itching and Dermatitis Please use [id number] ??? Penicillins Physical Exam: Deferred Labs: Lab [...] PM EST Office [place] [address] Hollie Ambriz MD [facility] [place] [address] documented as of this encounter Visit Diagnoses [...] documented as of this encounter Care Teams Livestock Farmers Relationship Specialty Start Date End Date Lorna Bal APRN [address] [place] [address] PCP - General Family Medicine 05/27/18 documented as of this encounter
--- OUTSIDE RECORDS SUMMARY | 2023-12-04 12:37 | XMS_ITS | Encounter Summary ---
[place] [address] Care Team Providers Care Instructor Traffic Safety Name Role Phone Lorna Bal APRN Primary Care Provider +1 [phone] Encounter Details Date Type Department Care Team [...] PM EST Office [place] [address] Hollie Ambriz MD [facility] [place] [address] documented as of this encounter Visit Diagnoses Not on filedocumented in this encounter Care Teams Instructor Traffic Safety Relationship Specialty Start Date End Date Lorna Bal APRN [address] [place] [address] PCP - General Family Medicine 05/27/18 documented as of this encounter
--- OUTSIDE RECORDS SUMMARY | 2023-12-04 12:37 | XMS_ITS | Encounter Summary ---
[place] [address] Care Team Providers Care Oyster Cultivator Name Role Phone Lorna Bal APRN Primary Care Provider +1 [phone] Encounter Details Date Type Department Care Team [...] PM EST Office Visit [place] [address] Hollie Ambriz MD [facility] [place] [address] documented as of this encounter Visit Diagnoses Not on filedocumented in this encounter Care Teams Oyster Cultivator Relationship Specialty Start Date End Date Lorna Bal APRN [address] [place] [address] PCP - General Family Medicine 05/27/18 documented as of this encounter
--- OUTSIDE RECORDS SUMMARY | 2023-12-04 12:37 | XMS_ITS | Encounter Summary ---
Author Organization [facility] [address] Care Team Providers Care Yarrow Gatherer Name Role Phone Lorna Bal APRN Primary Care Provider +1 -[phone] Reason for Referral * Diagnostic Test (Routine) - Closed Specialty Diagnoses / Procedures Referred By Contac t Referred To Contact Radiology Diagnoses Abscess Procedures CT Lumbar Spine w [place] [address] [facility] [place] [address] Referral ID Status Reason Start Date Expiration Date V isits Requested Visits Authorized [id number] Closed Specialty Service Requested 08/12/2022 02/12/2024 1 1 Reason for Visit * Diagnostic Test (Routine) - Closed Specialty Diagnoses / Procedures Referred By Contac t Referred To Contact Radiology Diagnoses Abscess Procedures CT Lumbar Spine [place] [address] [facility] [place] [address] Referral ID Status Reason Start Date Expiration Date V isits Requested Visits Authorized [id number] Closed Specialty Service Requested 08/12/2022 02/12/2024 1 1 Encounter Details Date Type Department Care Team (Latest Contact Info) Description 08/13/2022 8:33 AM EDT - 08/13/2022 11:59 PM EDT Hospital [place] [address] [place] [address] Abscess Discharge Disposition: Home Social [...] PM EST Office Visit Infectious Disease at [facility] [place] [place] [address] Hollie Ambriz MD [facility] DR [place] [address] documented as of this encounter Procedures Procedure [...] who have questions please contact the health home care consultant that requested your imaging first. ? Electronically signed by: Jamaal Villafuerte [facility] ([phone]), at 08/13/2022 4:52 PM Narrative 08/13/2022 4:52 PM EDT EXAMINATION: CT [...] patients who have questions please contactthe health home care consultant that requested your imaging first. Electronically signed by: Jamaal Villafuerte [facility]([phone]), at 08/13/2022 4:52 PM Jamshid Collins MD IM CT ORDERABLES documented in this [...] mLs documented in this encounter Care Teams Yarrow Gatherer Relationship Specialty Start Date End Date Lorna Bal APRN [address] [place] [address] PCP - General Family Medicine 05/27/18 documented as of this encounter
--- OUTSIDE RECORDS SUMMARY | 2023-12-04 12:37 | XMS_ITS | Encounter Summary ---
Author Organization [facility] [place] [address] Care Team Providers Care Clerk Secretary Name Role Phone Lorna Bal APRN Primary Care Provider +1 -[phone] Encounter Details Date Type Department Care Team (Late st Contact Info) Description 08/15/2022 Telephone [place] [address] Neva Thorpe, RN Social History Tobacco Use Types Packs/Day Years Used Date Smoking Tobacco: Never Smokeless Tobacco: Never Comments:NO SMOKERS IN THE H OME Alcohol Use Standard Drinks/Week Comments No 0 (1 standard drink = 0.6 oz pur e alcohol) [facility] Inpatient Questions Answer Date Recorded [...] 08/15/2022 2:26 PM EDT Pictures received via [facility] of Tana's back wound. This RN spoke [...] PM EST Office Visit [place] [address] Hollie Ambriz MD [facility] [place] [address] documented as of this encounter Visit Diagnoses Not on filedocumented in this encounter Care Teams Clerk Secretary Relationship Specialty Start Date End Date Lorna Bal APRN [address] [place] [address] PCP - General Family Medicine 05/27/18 documented as of this encounter
--- OUTSIDE RECORDS SUMMARY | 2023-12-04 12:37 | XMS_ITS | Encounter Summary ---
[place] [address] Care Team Providers Care Brusher Tender Name Role Phone Lorna Bal APRN Primary Care Provider +1 -[phone] Encounter Details Date Type Department Care Team [...] PM EST Office Visit [place] [address] Hollie Ambriz MD [facility] [place] [address] documented as of this encounter Visit Diagnoses Not on filedocumented in this encounter Care Teams Brusher Tender Relationship Specialty Start Date End Date Lorna Bal APRN [address] [place] [address] PCP - General Family Medicine 05/27/18 documented as of this encounter
--- OUTSIDE RECORDS SUMMARY | 2023-12-04 12:37 | XMS_ITS | Encounter Summary ---
Author Organization [facility] [place] [address] Care Team Providers Care Underwriting Service Representative Name Role Phone Lorna Bal APRN Primary Care Provider +1 -[phone] Reason for Referral * Diagnostic Test (Routine) - New Request Specialty Diagnoses / Procedures Referred By Contac t Referred To Contact Radiology Diagnoses Spinal abscess Procedures IR Drain Check/Change/Remove Hank Nunez PA [facility] [place] [address] [place] [address] Referral ID Status Reason Start Date Expiration Date Visits Requested Visits Authorized [id number] New Request Specialty Service Requested 08/21/2022 02/21/2024 1 1 Encounter Details Date Type Department Care Team (Late st Contact Info) Description 08/21/2022 Orders [place] [address] Hank Nunez PA [facility] [place] [address] Spinal abscess Social History Tobacco Use Types Packs/Day Years Used Date Smoking Tobacco: Never Smokeless Tobacco: Never Comments:NO SMOKERS IN THE H OME Alcohol Use Standard Drinks/Week Comments No 0 (1 standard drink = 0.6 oz pur e alcohol) [facility] Inpatient Questions Answer Date Recorded [...] PM EST Office Visit [place] [address] Hollie Ambriz MD [facility] [place] [address] documented as of this encounter Results * [...] dislodged and replaced on 07/24. Additional 8 Faroese drain placed into adjacent L2/L3 collection at [...] throughout. ?? More Caudal Lumbar Drainage Catheter: Materials Manager fluoroscopic images were obtained. ??Contrast was injected through the catheter and repeat fluoroscopic images were obtained. The drainage catheter was left in place. ??A sterile dressing was applied. ?? More Cranial Lumbar Drainage Catheter: Materials Manager fluoroscopic images were obtained. ??Contrast was injected [...] sequela documented in this encounter Care Teams Underwriting Service Representative Relationship Specialty Start Date End Date Lorna Bal, LUNG SPLITTER [address] [place] [address] PCP - General Family Medicine 05/27/18 documented as of this encounter
--- OUTSIDE RECORDS SUMMARY | 2023-12-04 12:37 | XMS_ITS | Encounter Summary ---
[place] [address] Care Team Providers Care Green Building Materials Distributor Name Role Phone Lorna Bal APRN Primary Care Provider +1 -[phone] Encounter Details Date Type Department Care Team (Late st Contact Info) Description 08/25/2022 Transcribe [place] [address] Lorna Bal APRN [address] [place], [place] [address] Social History Tobacco Use Types Packs/Day Years [...] PM EST Office [place] [address] Hollie Ambriz MD [facility] [address] [place] [address] documented as of this encounter Visit Diagnoses Not on filedocumented in this encounter Care Teams Green Building Materials Distributor Relationship Specialty Start Date End Date Lorna Bal APRN [address] [place] [address] PCP - General Family Medicine 05/27/18 documented as of this encounter
--- OUTSIDE RECORDS SUMMARY | 2023-12-04 12:37 | XMS_ITS | Encounter Summary ---
Author Organization [facility] [place] [address] Care Team Providers Care Pre K Lead Teacher Name Role Phone Lorna Bal APRN Primary Care Provider +1 [phone] Encounter Details Date Type Department Care Team (Late st Contact Info) Description 08/15/2022 Telephone [place] [address] Shawn Woodard MD [facility] [place] [address] Social History Tobacco Use Types Packs/Day Years Used Date Smoking Tobacco: Never Smokeless Tobacco: Never Comments:NO SMOKERS IN THE H OME Alcohol Use Standard Drinks/Week Comments No 0 (1 standard drink = 0.6 oz pur e alcohol) [facility] Inpatient Questions Answer Date Recorded [...] to answer her earlier call to the [facility] nursing group with concerns. She was both confused after her clinic appointment of two days ago, when she feels that she received two different messages from the fellow and attending she saw (one suggesting there may not even olmedo infection and the other that Tana might need to be on antibiotics for life); and also concernedabout a douglas of erythema which she had noted around [...] may not be curable (hence discussion about precision lathe operator antibiotics), especially with the remaining screw, which [...] PM EST Office [place] [address] Hollie Ambriz MD [facility] [place] [address] documented as of this encounter Visit Diagnoses Not on filedocumented in this encounter Care Teams Pre K Lead Teacher Relationship Specialty Start Date End Date Lorna Bal APRN [address] [place] [address] PCP - General Family Medicine 05/27/18 documented as of this encounter
--- OUTSIDE RECORDS SUMMARY | 2023-12-04 12:37 | XMS_ITS | Encounter Summary ---
[place] [address] Care Team Providers Care Electrical Assistant Name Role Phone Lorna Bal APRN Primary Care Provider +1 -[phone] Encounter Details Date Type Department Care Team (Latest Contact Info) Description 08/11/2022 2:40 PM EDT Laboratory Appointment Lab [address] [phone] Spinal abscess; Bacteremia; E coli infection; Soft [...] PM EST Office Visit Infectious Disease at [facility] [place] [phone] Hollie Ambriz MD [facility] INFECTIOUS [place] [address] documented as of this encounter Procedures Procedure Name Priority Date/Time Associated Diagnosis Comments CRP, ACUTE INFLAMMATION Routine 08/11/2022 2:53 PM EDT Spinal abscess [...] tissue abscess Muscle abscess COMPREHENSIVE METABOLIC PANEL Routine 08/11/2022 2:53 PM EDT Spinal abscess Bacteremia E coli infection Soft tissue abscess Muscle abscess documented in this encounter Results * Differential, Automated (08/11/2022 2:53 PM EDT) Neutrophil % 66.1 % [facility] Neutrophil Absolute 4.09 1.70 - 6.10 x10(3)/[facility] LABORATORY Lymph % 26.8 % [facility] Lymphocytes Abs 1.7 0.9 - 3.2 x10(3)/[facility] LABORATORY Monocyte % 5.7 % [facility] LAB[facility] Monocyte Abs 0.4 0.3 - 0.9 x10(3)/[facility] LABORATORY Eos % 1.1 % [facility] LABORAT[facility] Eosinophils Abs 0.1 0.0 - 0.4 x10(3)/[facility] LABORATORY Basophil % 0.3 % [facility] ITAL LABORATORY Baso Absolute 0.0 0.0 - 0.1 x10(3)/mcL [facility] Immature Gran % 0.00 % [facility] Comment: Immature granulocytes(IG's)percentage and absolute count will include metamyelocytes, myelocytes, and promyelocytes. Blood smears from CBCs yielding IG's will be scanned manually for concordance. If this scan disagrees with the automated IG or if promyelocytes are noted, a manual differential will be performed. Immature Gran Absolute 0.00 0.00 - 0.04 x10(3)/[facility] LABORATORY Blood 08/11/2022 2:53 PM EDT 08/11/2022 3:21 PM EDT Narrative Resulting Agency Comment Spec In Lab Jamaal Estrada MD HEMATOLOGY ORDERABL ES [facility] [place] [address] * (ABNORMAL) Hemogram (08/11/2022 2:53 PM EDT) White Blood Cell 6.2 4.0 - 9.5 x10(3)/mc L [facility] Red Blood Cell 4.81 4.00 - 5.21 x10(6)/mc L [facility] Hemoglobin 12.1 11.7 - 15.5 g/dL [facility] Hematocrit 37.4 35.7 - 45.8 % [facility] Mean Cell Volume 77.8(L) 82.6 - 94.4 fL [facility] Mean Cell Hemoglobin 25.2(L) 27.1 - 32.0 pg [facility] Mean Cell Hemoglobin Concentration 32.4 31.7 - 35.0 g/dL [facility] Platelet 387(H) 145 - 357 x10(3)/mc L [facility] RDW Standard Deviation 50.0(H) 37.0 - 46.0 fL [facility] RDW coefficient of variation 17.9(H) 11.5 - 14.1 % [facility] Mean Platelet Volume 9.6 7.6 - 12.9 fL [facility] NRBC% auto 0.0 % [facility] ITAL LABORATORY NRBC Absolute 0.000 0.000 - 0.000 x10(3)/mc L [facility] Blood 08/11/2022 2:53 PM EDT 08/11/2022 3:21 PM EDT Narrative Resulting Agency Comment Spec In Lab Jamaal Estrada MD HEMATOLOGY ORDERABL ES [facility] [place] [address] * (ABNORMAL) Comprehensive metabolic panel (non-fasting) (08/11/2022 2:53 PM EDT) Glucose 75 65 - 199 mg/dL [facility] Comment:Diabetes: >=200 mg/d L plus symptoms Blood Urea Nitrogen 9 8 - 18 mg/dL [facility] Creatinine 0.25(L) 0.70 - 1.20 mg/dL [facility] Sodium 141 135 - 145 mmol/L [facility] Potassium 4.0 3.5 - 5.0 mmol/L [facility] Comment: Please note: ??Patients with WBC >100,000 may have falsely elevated Potassium levels. ??For accurate Potassium quantification in these patients send serum separator tube (gold top) for subsequent determinations. ??Contact the Clinical Chemistry Laboratory if there are any questions. Chloride 105 98 - 107 mmol/L [facility] Carbon Dioxide 24 22 - 31 mmol/L [facility] Anion Gap 12 5 - 15 mmol/L [facility] Calcium 9.4 8.5 - 10.5 mg/dL [facility] Protein, Total 8.0 6.1 - 8.0 g/dL [facility] Albumin 4.2 3.2 - 5.2 g/dL [facility] Aspartate Aminotransferase 19 0 - 30 unit/L [facility] Alanine Aminotransferase 26 0 - 30 unit/L [facility] Alkaline Phosphatase 211(H) 35 - 105 unit/L [facility] Bilirubin, Total <0.2(L) 0.2 - 1.3 mg/dL [facility] Est Glomerular Filtration Rate 154 >=60 mL/min/1. 73 m?? [facility] Comment: This patient's estimated GFR [...] MD CHEMISTRY ORDERABLE S Performing Organization Address City/[facility]/ZIP Co de Phone Number [facility] [place] [address] * (ABNORMAL) CRP, acute inflammation (08/11/2022 2:53 PM EDT) C-Reactive Protein 45.8(H) <=4.9 mg/L [facility] Blood 08/11/2022 2:53 PM EDT 08/11/2022 3:21 PM EDT Narrative Resulting Agency Comment Spec In Lab Jamaal Estrada MD CHEMISTRY ORDERABLE S [facility] [place] [address] documented in this encounter Visit Diagnoses Diagnosis Spinal abscess Acute osteomyelitis, other specified site Bacteremia E coli infection Other and unspecified Escherichia coli (E. coli) Soft tissue abscess Cellulitis and abscess of other specified site Muscle abscess Other disorder of muscle, ligament, and fascia documented in this encounter Care Teams Electrical Assistant Relationship Specialty Start Date End Date Lorna Bal APRN [address] [place] [address] PCP - General Family Medicine 05/27/18 documented as of this encounter
--- OUTSIDE RECORDS SUMMARY | 2023-12-04 12:37 | XMS_ITS | Encounter Summary ---
Author Organization [facility] [place] [address] Care Team Providers Care Slip Box Changer Name Role Phone Lorna Bal APRN Primary Care Provider +1 [phone] Reason for Referral * Diagnostic Test (Routine) [...] sequela Procedures IR Drain Check/Change/Remove Jamaal Jenkins, [facility] [place] [address] [facility] [place] [address] Referral ID Status Reason Start Date Expiration Date Visits Requested Visits Authorized [id number] Pending Review Specialty Service Requested 08/25/2022 02/26/2024 1 1 * Diagnostic Test (Routine) - New Request Specialty Diagnoses / Procedures Referred By Contac t Referred To Contact Radiology Diagnoses Spinal abscess Procedures IR Drain Check/Change/Remove Hank Nunez PA [facility] [place] [address] [place] [address] Referral ID Status Reason Start Date Expiration Date Visits Requested Visits Authorized [id number] New Request Specialty Service Requested 08/21/2022 02/21/2024 1 1 Reason for Visit * Diagnostic Test (Routine) - New Request Specialty Diagnoses / Procedures Referred By Contac t Referred To Contact Radiology Diagnoses Spinal abscess Procedures IR Drain Check/Change/Remove Hank Nunez PA [facility] [place] [address] [place] [address] Referral ID Status Reason Start Date Expiration Date Visits Requested Visits Authorized [id number] New Request Specialty Service Requested 08/21/2022 02/21/2024 1 1 Encounter Details Date Type Department Care Team (Latest Contact Info) Description 08/25/2022 12:57 PM EDT - 08/25/2022 11:59 PM EDT Hospital [place] [address] Piter Self MD [facility] [place] [address] Spinal abscess; Abscess; Contracture of left elbow; [...] is during regular office hours, please call [phone]. If it is after regular office hours, or on weekends or holidays, please call [phone] and ask to speak to the Nitrate Operator training professional for Interventional Radiology. XX You have received [...] of : 1995 AGE: 27 y.o. Address: [address] [place] [address] Phone: [phone] (home) Mobile: Telephone Information: Referring Provider: Hank Nunez REASON FOR VISIT: Order Questions Answers Where will study be performed? [facility] Radiology [120] Reason for exam and [...] [Transparent Dressings] Itching and Dermatitis Please use [id number] ??? Penicillins Pertinent PMH: Patient Active Problem [...] dislodged and replaced on 07/24. Additional 8 Sudanese drain placed into adjacent L2/L3 collection at that time. Patient presenting for drain check. Last drain check 08/11 demonstrating residual abscess cavities, drains left in place. Patient had interval CT lumbar spine on 4/19 demonstrating slightly decreased size of caudal collection [...] All Drainage Procedures 06/25/2022 Mich Martino MD [facility] INTERVENTIONL RAD ??? IR ALL DRAINAGE PROCEDURES 07/04/2022 IR All Drainage Procedures 07/04/2022 Mich Martino MD [facility] INTERVENTIONL RAD ??? IR ALL DRAINAGE PROCEDURES 07/24/2022 IR All Drainage Procedures 07/24/2022 Anurag Kumar MD [facility] INTERVENTIONL RAD ??? IR DRAIN CHECK/CHANGE/REMOVE 07/01/2022 IR Drain Check/Change/Remove 07/01/2022 Jamaal Jenkins, DO [facility] INTERVENTIONL RAD ??? PRO APPLY OF [...] [facility] [place] OR ??? PRO IMPACT TOOTH REMOV COMP BONY N/A 06/14/2018 SURGICAL EXTRACTIONS, REMOVAL OF IMPACTED TOOTH, COMPLETELY BONY (WRVU 1.93) performed by Keith Cotton MD at [facility] OSC ??? PRO OSTEOTOMY FEMUR SHAFT/SUPRACONDY 08/15/2010 ??OSTEOTOMY, FEMUR SHAFT OR SUPRACONDYLAR W/O FIXATION performed by BARRERA OLIVER at [facility] MAIN OR ??? PRO RECONSTRUC HIP SOCKET, RESEC FEM HEAD 08/15/2010 ??ACETABULOPLASTY (GIRDLESTONE), RESECTION FEMORAL HEAD, BILATERAL performed by BARRERA OLIVER [facility] MAIN OR ??? PRO REMOVAL DEEP IMPLANT 08/15/2010 REMOVAL IMPLANT, DEEP, BRUNO performed by BARRERA OLIVER at [facility] MAIN OR ??? PRO REMOVAL ERUPTED TOOTH WITH ELEVATION OF MUCOPERIOSTEAL FLAP N/A 06/14/2018 SURGICAL EXTRACTIONS REQUIRING ELEVATION OF MUCOPERIOSTEAL FLAP AND REMOVAL OF BONE OR SECTION OF TOOTH (WRVU 1.09) performed by Keith Cotton MD at [facility] OSC ??? PRO REMOVE INFUSN DEVICE/PUMP N/A 05/11/2014 REMOVAL OF SPINE INFUSION PUMP performed by Jamaal Samuel MD at [facility] MAIN OR ??? PRO REMOVE SPINAL CANAL CATHETER N/A 05/11/2014 REMOVAL OF INTRATHECAL OR EPIDURAL CATHETER performed by Jamaal Samuel MD at [facility] [place] [facility] OR ??? PRO REPR, DURAL/CSF LEAK, NOT REQ LAMINECTOMY N/A 05/20/2014 @REPAIR DURAL\CSF LEAK,NOT REQUIRING LAMINECTOMY performed by Freddy Isbell MD at [facility] [place] [facility] OR Medications: Current Outpatient Medications on File [...] EST Office [place] [address] Hollie Ambriz MD [facility] [place] [address] documented as of this encounter Procedures Procedure [...] ?? Jamaal Jenkins DO IMG IR ORDERABLES * IR Drain Check/Change/Remove (08/25/2022 [...] dislodged and replaced on 07/24. Additional 8 Sudanese drain placed into adjacent L2/L3 collection at [...] throughout. ?? More Caudal Lumbar Drainage Catheter: Capsule Filling Machine Operator fluoroscopic images were obtained. ??Contrast was injected through the catheter and repeat fluoroscopic images were obtained. The drainage catheter was left in place. ??A sterile dressing was applied. ?? More Cranial Lumbar Drainage Catheter: Capsule Filling Machine Operator fluoroscopic images were obtained. ??Contrast was injected [...] mLs documented in this encounter Care Teams Slip Box Changer Relationship Specialty Start Date End Date Lorna Bal APRN [address] [place] [address] PCP - General Family Medicine 05/27/18 documented as of this encounter
--- OUTSIDE RECORDS SUMMARY | 2023-12-04 12:37 | XMS_ITS | Encounter Summary ---
Author Organization [facility] [place] [address] Care Team Providers Care Maintenance Foreman Name Role Phone Lorna Bal APRN Primary Care Provider +1 -[phone] Encounter Details Date Type Department Care Team (Late st Contact Info) Description 08/07/2022 Telephone [place] [phone] Mesha Mckeon, RN Social History Tobacco Use [...] PM EST Office [place] [address] Hollie Ambriz MD [facility] [address] [place] [address] documented as of this encounter Visit Diagnoses Not on filedocumented in this encounter Additional Health Concerns Infection Onset Date Last Indicated Resolved Time Enterovirus / Rhinovirus 07/28/2022 07/28/2022 8:09 PM EDT documented as of this encounter Care Teams Maintenance Foreman Relationship Specialty Start Date End Date Lorna Bal APRN [address] [place] [address] PCP - General Family Medicine 05/27/18 documented as of this encounter
--- OUTSIDE RECORDS SUMMARY | 2023-12-04 12:37 | XMS_ITS | Encounter Summary ---
Author Organization [facility] [place] [address] Care Team Providers Care Bacteriologist Soil Name Role Phone Lorna Bal APRN Primary Care Provider +1 -[phone] Encounter Details Date Type Department Care Team (Late st Contact Info) Description 08/19/2022 Telephone [place] [phone] Lilli Joy APRN [facility] [place] [address] Social History Tobacco Use Types Packs/Day Years Used Date Smoking Tobacco: Never Smokeless Tobacco: Never Comments:NO SMOKERS IN THE H OME Alcohol Use Standard Drinks/Week Comments No 0 (1 standard drink = 0.6 oz pur e alcohol) [facility] Inpatient Questions Answer Date Recorded [...] Notes * Telephone Encounter - Lilli Joy, MAGNETIC RESONANCE IMAGING COORDINATOR - 08/19/2022 8:59 PM EDT S: Received [...] PM EST Office [place] [address] Hollie Ambriz MD [facility] [place] [address] documented as of this encounter Visit Diagnoses Not on filedocumented in this encounter Care Teams Bacteriologist Soil Relationship Specialty Start Date End Date Lorna Bal APRN [address] [place] [address] PCP - General Family Medicine 05/27/18 documented as of this encounter
--- OUTSIDE RECORDS SUMMARY | 2023-12-04 12:37 | XMS_ITS | Encounter Summary ---
Author Organization [facility] [place] [address] Care Team Providers Care Skilled Helper Name Role Phone Lorna Bal APRN Primary Care Provider +1 -[phone] Encounter Details Date Type Department Care Team (Late st Contact Info) Description 08/06/2022 Telephone Infectious [place] [phone] Halima García Social History Tobacco Use Types Packs/Day Years Used Date Smoking Tobacco: Never Smokeless Tobacco: Never Comments:NO SMOKERS IN THE H OME Alcohol Use Standard Drinks/Week Comments No 0 (1 standard drink = 0.6 oz pur e alcohol) [facility] Inpatient Questions Answer Date Recorded [...] - 08/06/2022 8:35 AM EDT Shonna from [facility] called. Pt's home healthcare orders need to be restarted and orders need to be placed for weekly lab draw and drainage care. documented in this encounter Plan of Treatment Upcoming Encounters Date Type Department Care Team (Late st Contact Info) Description 06/02/2024 12:30 PM EST Office Visit Infectious [place] [address] Hollie Ambriz MD [facility] [place] [address] documented as of this encounter Visit Diagnoses Not on filedocumented in this encounter Additional Health Concerns Infection Onset Date Last Indicated Resolved Time Enterovirus / Rhinovirus 07/28/2022 07/28/2022 8:09 PM EDT documented as of this encounter Care Teams Skilled Helper Relationship Specialty Start Date End Date Lorna Bal APRN [address] [place] [address] PCP - General Family Medicine 05/27/18 documented as of this encounter
--- OUTSIDE RECORDS SUMMARY | 2023-12-04 12:37 | XMS_ITS | Encounter Summary ---
[place] [address] Care Team Providers Care Child Care Coordinator Name Role Phone Lorna Bal APRN Primary Care Provider +1 -[phone] Reason for Referral * Consultation (Routine) - Closed Specialty Diagnoses / Procedures Referred By Contac t Referred To Contact [facility] Diagnoses Spinal abscess Soft tissue abscess Bacteremia Sergey Keane MD [facility] [place] [address] [facility] [place] [address] Referral ID Status Reason Start Date Expiration Date V isits Requested Visits Authorized [id number] Closed Consult, Test & Treat 08/13/2022 08/13/2023 1 1 Encounter Details Date Type Department Care Team (Late st Contact Info) Description 08/13/2022 11:30 AM EDT Office [place] [address] Sergey Keane MD 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
--- OUTSIDE RECORDS SUMMARY | 2023-12-04 12:38 | XMS_ITS | Encounter Summary ---
Author Organization [facility] Address [facility] [place] [address] Care Team Providers Care Crimp Setter Name Role Phone Lorna Bal APRN Primary Care Provider +1 -[phone] Encounter Details Date Type Department Care Team (Late st Contact Info) Description 07/12/2022 Telephone [place] [address] Ainsley Doyle MD [facility] [place] [address] Social History Tobacco Use Types Packs/Day Years [...] PM EST Office Visit Infect[place] [address] Hollie Ambriz MD [facility] [place] [address] documented as of this encounter Visit Diagnoses Not on filedocumented in this encounter Care Teams Crimp Setter Relationship Specialty Start Date End Date Lorna Bal APRN [address] [place] [address] PCP - General Family Medicine 05/27/18 documented as of this encounter
--- OUTSIDE RECORDS SUMMARY | 2023-12-04 12:38 | XMS_ITS | Encounter Summary ---
Author Organization [facility] [place] [address] Care Team Providers Care Filenet Architect Name Role Phone Lorna Bal APRN Primary Care Provider +1 -[phone] Encounter Details Date Type Department Care Team (Late st Contact Info) Description 07/22/2022 Notes Only Infectious Disease at [facility] [place] [address] Mesha Mckeon, RN Social History Tobacco Use [...] 07/22/2022 1:28 PM EDT Received call from [facility] who informed this magazine writer that they are unable to obtain labs [...] PM EST Office Visit [place] [address] Hollie Ambriz MD [facility] DR [place] [address] documented as of this encounter Visit Diagnoses Not on filedocumented in this encounter Care Teams Filenet Architect Relationship Specialty Start Date End Date Lorna Bal APRN [address] [place] [address] PCP - General Family Medicine 05/27/18 documented as of this encounter
--- OUTSIDE RECORDS SUMMARY | 2023-12-04 12:38 | XMS_ITS | Encounter Summary ---
Author Organization [facility] [address] Care Team Providers Care Software Sales Executive Name Role Phone Lorna Bal APRN Primary Care Provider +1 -[phone] Encounter Details Date Type Department Care Team (Late st Contact Info) Description 07/22/2022 Orders [place] [address] Yury Gibbons MD [facility] DR DIAGNOSTIC [place] [address] Social History Tobacco Use Types Packs/Day Years Used Date Smoking Tobacco: Never Smokeless Tobacco: Never Comments:NO SMOKERS IN THE H OME Alcohol Use Standard Drinks/Week Comments No 0 (1 standard drink = 0.6 oz pur e alcohol) [facility] Inpatient Questions Answer Date Recorded [...] PM EST Office [place] [address] Hollie Ambriz MD [facility] [address] [place] [address] documented as of this encounter Visit Diagnoses Not on filedocumented in this encounter Care Teams Software Sales Executive Relationship Specialty Start Date End Date Lorna Bal APRN [address] [place] [address] PCP - General Family Medicine 05/27/18 documented as of this encounter
--- OUTSIDE RECORDS SUMMARY | 2023-12-04 12:38 | XMS_ITS | Encounter Summary ---
Author Organization [facility] Address [facility] [place] [address] Care Team Providers Care Director Of Rehabilitation And Wellness Name Role Phone Lorna Bal APRN Primary Care Provider [phone] Encounter Details Date Type Department Care Team (Late st Contact Info) Description 07/17/2022 Telephone [place] [phone] Jamaal Estrada MD [facility] [place] [address] Social History Tobacco Use Types Packs/Day Years Used Date Smoking Tobacco: Never Smokeless Tobacco: Never Comments:NO SMOKERS IN THE H OME Alcohol Use Standard Drinks/Week Comments No 0 (1 standard drink = 0.6 oz pur e alcohol) [facility] Inpatient Questions Answer Date Recorded [...] PM EST Office Visit [place] [address] Hollie Ambriz MD [facility] [place] [address] documented as of this encounter Visit Diagnoses Not on filedocumented in this encounter Care Teams Director Of Rehabilitation And Wellness Relationship Specialty Start Date End Date Lorna Bal APRN [address] [place] [address] PCP - General Family Medicine 05/27/18 documented as of this encounter
--- OUTSIDE RECORDS SUMMARY | 2023-12-04 12:38 | XMS_ITS | Encounter Summary ---
Author Organization [facility] [place] [address] Care Team Providers Care Retail District Manager Name Role Phone Lorna Bal APRN Primary Care Provider [phone] Encounter Details Date Type Department Care Team (Late st Contact Info) Description 07/15/2022 Telephone [place] [phone] Valentina Stanton Social History Tobacco Use Types [...] is taking levofloxacin as prescribed. [facility] today. We talked about the [...] PM EST Office [place] [address] Hollie Ambriz MD [facility] INFECTI[place] [address] documented as of this encounter Visit Diagnoses Not on filedocumented in this encounter Care Teams Retail District Manager Relationship Specialty Start Date End Date Lorna Bal APRN [address] [place] [address] PCP - General Family Medicine 05/27/18 documented as of this encounter
--- OUTSIDE RECORDS SUMMARY | 2023-12-04 12:38 | XMS_ITS | Encounter Summary ---
[place] [address] Care Team Providers Care Greaser Operator Name Role Phone Lorna Bal APRN Primary Care Provider [phone] Encounter Details Date Type Department Care Team (Latest Contact Info) Description 07/24/2022 Travel Social History Tobacco Use Types Packs/Day Years Used Date Smoking Tobacco: Never Smokeless Tobacco: Never Comments:NO SMOKERS IN THE H OME Alcohol Use Standard Drinks/Week Comments No 0 (1 standard drink = 0.6 oz pur e alcohol) [facility] Inpatient Questions Answer Date Recorded [...] PM EST Office [place] [phone] Hollie Ambriz MD [facility] [place] [address] documented as of this encounter Visit Diagnoses Not on filedocumented in this encounter Care Teams Greaser Operator Relationship Specialty Start Date End Date Lorna Bal APRN [address] [place] [address] PCP - General Family Medicine 05/27/18 documented as of this encounter
--- OUTSIDE RECORDS SUMMARY | 2023-12-04 12:38 | XMS_ITS | Encounter Summary ---
Author Organization [facility] [place] [address] Care Team Providers Care Caster Investment Casting Name Role Phone Lorna Bal APRN Primary Care Provider [phone] Encounter Details Date Type Department Care Team (Late st Contact Info) Description 07/09/2022 Notes Only Infectious Disease at [facility] [place] [phone] Mesha Mckeon, RN Social History Tobacco Use [...] AM EDT Infectious Disease Department Faxed to [facility] and [facility] on 07/09/22 at 0950 Fax confirmation on 07/09/22 at 0952 Document(s) faxed: Standing labs documented in this encounter Plan of Treatment Upcoming Encounters Date Type Department Care Team (Late st Contact Info) Description 06/02/2024 12:30 PM EST Office Visit [place] [address] Hollie Ambriz MD [facility] [address] [place] [address] documented as of this encounter Visit Diagnoses Not on filedocumented in this encounter Additional Health Concerns Infection Onset Date Last Indicated Resolved Time Parainfluenza Virus 06/28/2022 06/28/2022 07/10/19 8:09 PM EDT documented as of this encounter Care Teams Caster Investment Casting Relationship Specialty Start Date End Date Lorna Bal APRN [address] [place] [address] PCP - General Family Medicine 05/27/18 documented as of this encounter
--- OUTSIDE RECORDS SUMMARY | 2023-12-04 12:38 | XMS_ITS | Encounter Summary ---
[place] [address] Care Team Providers Care Eap Consultant Name Role Phone Lorna Bal APRN Primary Care Provider [phone] Reason for Referral * Diagnostic Test (Routine) - New Request Specialty Diagnoses / Procedures Referred By Contac t Referred To Contact Radiology Diagnoses Spinal abscess Procedures IR Drain Check/Change/Remove Lucho Burciaga MD [facility] [address] [place] [address] Referral ID Status Reason Start Date Expiration Date Visits Requested Visits Authorized [id number] New Request Specialty Service Requested 07/24/2022 01/25/2024 1 1 Reason for Visit * Reason Comments Wound Check * Auth/Cert (Routine) Specialty Diagnoses / Procedures Referred By Contac t Referred To Contact Diagnoses Abscess Procedures EMERGENCY Eddi Samuel MD [facility] [place] [address] [facility] Referral ID Status Reason Start Date Expiration Date Visits Re quested Visits Authorized [id number] 1 1 Encounter Details Date Type Department Care Team (Latest Contact Info) Description 07/22/2022 5:43 PM EDT - 08/01/2022 5:12 PM EDT Hospital Encounter Medical Specialites Unit Level 1 [place] [id number] Alek Tavares MD [facility] [place] [address] Eddi Váz[place] [address] [place] [address] [place] [address] 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 Dx); QT prolongation; Abscess [...] Tana Cavazos Patient Age: 27 y.o. Language: Malawian Race: White Ethnicity: Not nor Admit date: [...] please contact your inpatient physician through the [facility] Burlap Roll Coverer . Issues afterhours and on weekends will [...] [Transparent Dressings] Itching and Dermatitis Please use [id number] ??? Penicillins Immunizations Given this Hospitalization: Immunization History Administered Date(s) Administered ??? Influenza Vaccine (Novel) [id number], Injectable 02/25/2009 ??? Influenza Vaccine w/Preservative, Split [...] her to stop it. She might require exterminator helper antibiotics to suppress infection. At some point [...] Center 08/07/2022 1:00 PM Lilli Joy APRN [facility] ID [id number] [facility] 08/11/2022 12:50 PM [facility] IR ROOM 6 IR [facility] Rad 08/13/2022 11:30 AM Sergey Keane MD [facility] ID 5C [facility] Non-[facility] Follow-up Appointments: N/A Your Inpatient Doctor(s) at [facility]: ALEK TAVARES, ERNESTO MCCARTHY, EDDI BELL, JODY Kwong For questions regarding issues relating to your hospitalization on the Hospital Medicine Service, please contact your inpatient physician through the [facility] Burlap Roll Coverer [phone]. Issues after hours and on weekends will be handled by the Hospitalist staff on-call. Your Primary Care Provider Lorna Bal APRN [phone] General Instructions INTERVENTIONAL RADIOLOGY DRAIN CARE INSTRUCTIONS [...] is during regular office hours, please call [phone]. If it is after regular office hours, or on weekends or holidays, please call [phone] and ask to speak to the Power Wheelchair Mechanic economics consultant for Interventional Radiology. XX You have [...] PM Lilli Joy APRN Infectious Disease at [facility] Arrive at: Home [phone] Please do not come in for this visit. Your provider will call you at the number you provided. 08/11/2022 12:50 PM [facility] IR ROOM 6 Radiology at [facility] Arrive at: 3Z RADIOLOGY [phone] Please expect a call from a radiology nurse within 3 days of your exam, you will need to follow theinstructions given at that time. 08/13/2022 11:30 AM Sergey Keane MD Infectious Disease at [facility] Arrive at: Veneer Manufacturer Area [phone] Future Orders Complete By Expires IR Drain Check/Change/Remove [[id number] Custom] 08/07/2022 (Approximate) 02/06/2023 Process Instructions: Scheduling Instructions: Comments: Questions: Where will study be performed?: [facility] Radiology Reason for exam and [...] ?: No CT Lumbar Spine w Contrast [[id number] Custom] 08/08/2022 02/07/2023 Process Instructions: Scheduling Instructions: Questions: Clinical information / foster questions for radiologist: eval for interval changes in abscesses s/p drain placement Where will study be performed?: [facility] Radiology Is the patient ?: No Stat read required?: Does patient require sedation?: GA rationale: Date of injury if applicable: Recurring Lab Work Interval Expires CBC (with Diff) [[id number] Custom] Once a week until 08/02/2023 08/02/2023 Process Instructions: INCLUDES: WBC, RBC, Hgb, Hct, Platelets, RBC Indices and Differential Scheduling Instructions: Comments: Questions: Comprehensive metabolic panel (non-fasting) [[id number] Custom] Once a week until 08/02/2023 08/02/2023 Process Instructions: INCLUDES: Calcium, T Protein, Albumin, AST, ALT, Alk Phos, T Bili, BUN, Creat, GFR, Glucose, Lytes. Scheduling Instructions: Comments: Questions: CRP, acute inflammation [[id number] Custom] Once a week until 08/02/2023 08/02/2023 [...] is during regular office hours, please call [phone]. If it is after regular office hours, or on weekends or holidays, please call [phone] and ask to speak to the Power Wheelchair Mechanic economics consultant for Interventional Radiology. XX You have [...] her to stop it. She might require exterminator helper antibiotics to suppress infection. At some point [...] Center 08/07/2022 1:00 PM Lilli Joy APRN [facility] ID 5C [facility] 08/11/2022 12:50 PM [facility] IR ROOM 6 [facility] Rad 08/13/2022 11:30 AM Sergey Keane MD [facility] ID 5C [facility] Non-[facility] Follow-up Appointments: N/A Your Inpatient Doctor(s) at [facility]: ALEK TAVARES ABHIJIT S STEWART, EMILY A O'DOWD, EDDI BELL TIMOTHY R For questions regarding issues relating to your hospitalization on the Hospital Medicine Service, please contact your inpatient physician through the [facility] Burlap Roll Coverer [phone]. Issues after hours and on weekends will be handled by the Hospitalist staff on-call. Your Primary Care Provider Lorna Bal, PAPER CONSERVATOR [phone] documented in this encounter Medications at Time [...] Lundberg DO ID Fellow Green Team Pager: [phone] I examined the patient independently of Dr. [...] Nutrition Services Note - Low Nutrition Acuity Tnaa Cavazos is a 27 y.o. female Reason for intervention: hospital length of stay Nutrition Plan: Continue diet order Monitor good PO Miralax noted Monitor weight weekly Patient scheduled for a hospital length of stay nutrition evaluation. Nurse Informatics Educator spoke with nursing d/tpt status. Per documentation patient has excellent PO intakes recorded at 75-100% over the past 4 days. According to dining services software they have ordered btwn 1608-3033kcals/day within the sameduration. Pt is eating great with caregiver assistance and is completing 75% of food received per RN. Nurse Informatics Educator unable to assess weight d/t only documentation [...] spent >30 minutes (Day of Discharge Code 22439) involved in the final examination of the patient, discussion of the hospital stay, instructions for continuing care to all relevant caregivers, and preparation of discharge records, prescriptions and referral forms. Plans ? Discharge to home ? Follow-up scheduled with infectious diseases, IR ? Please see the Discharge Summary for complete details of any medication changes and additional plans. Jody Collins MD [facility] * Yandy Masters RN - 08/01/2022 2:01 AM EDTSummary: Nursing OUTCOME EVALUATION NOTE: OUTCOME SUMMARY: Alert, non-verbal, hx of paraplegia, vss, 2a/L, no s+s of pain. Patient is resting comfortably in bed, Fannie (tread tuber machine operator) at bedside and attentive to patient, [...] Lundberg, DO ID Fellow Green Team Pager: [phone] I examined the patient independently of Dr. [...] placement possible plastics involvement. Joe Harrison MD [facility] - Department of Orthopaedic Surgery Chemical Supervisor - Department of Orthopedic Surgery / Academics and Research Glost Tile Sorter Professor - [facility] 08/01/2022 * Jody Collins MD - 07/31/2022 [...] drain x 2, oropeza, PIV Anticipated Disposition: chcf care facility Code Status: Attempt Cardiopulmonary Resuscitation [...] of two midnights or is on the [facility] inpatient only procedure list (status C) due to: monitoring of fluid status given an inability to regulate fluid balance and the need for administration or restriction of fluids Team Pager( Coverage 17/11): [phone] PCP: Lorna Bal, PAPER CONSERVATOR [phone] Jody Collins MD 07/31/2022 * Paige Gonzalez [...] ADLs]: Hands on Surveillance [facility]continuous indirect [facility] near nurses' station [...] Lundberg, DO ID Fellow Green Team Pager: [phone] I interviewed and examined the patient independently [...] Identification Panel by PCR Refer to link [email or web address] for a complete list of organisms. Identification [...] drain x 2, oropeza, PIV Anticipated Disposition: chcf care facility Code Status: Attempt Cardiopulmonary Resuscitation [...] of two midnights or is on the [facility] inpatient only procedure list (status C) due to: monitoring of fluid status given an inability to regulate fluid balance and the need for administration or restriction of fluids Team Pager(MD Coverage 17/11): #[phone] PCP: Lorna Bal, PAPER CONSERVATOR [phone] Jody Collins MD 07/30/2022 * Shawn Woodard [...] attending, Dr. Vance Lundberg DO ID Fellow [place] Team Pager: [phone] I interviewed and examined the patient independently [...] Lundberg DO - 07/29/2022 3:28 PM EDT OPAT INTAKE: Diagnosis: Osteomyelitis + [...] Hospital Problems No resolved problems to display. [facility] Active Non-Hospital Problems Diagnosis ??? Spinal [...] future testing is required, contact the Microbiology Retail Planner. * No growth at 5 days. No [...] drain x 2, oropeza, PIV Anticipated Disposition: chcf care facility Code Status: Attempt Cardiopulmonary Resuscitation [...] of two midnights or is on the [facility] inpatient only procedure list (status C) due to: monitoring of fluid status given an inability to regulate fluid balance and the need for administration or restriction of fluids Team Pager( Coverage 17/11): #[phone] PCP: Lorna Bal, PAPER CONSERVATOR [phone] Jody Collins MD 07/29/2022 * Jody Collins [...] future testing is required, contact the Microbiology Retail Planner. * No growth at 5 days. No [...] drain x 2, oropeza, PIV Anticipated Disposition: chcf care facility Code Status: Attempt Cardiopulmonary Resuscitation [...] of two midnights or is on the [facility] inpatient only procedure list (status C) due to: monitoring of fluid status given an inability to regulate fluid balance and the need for administration or restriction of fluids Team Pager(MD Coverage 17/11): #[phone] PCP: Lorna Bal, PAPER CONSERVATOR [phone] Jody Collins MD 07/28/2022 * Margy Mtz [...] future testing is required, contact the Microbiology Retail Planner. * No growth at 5 days. No [...] drain x 2, oropeza, PIV Anticipated Disposition: chcf care facility Code Status: Attempt Cardiopulmonary Resuscitation [...] of two midnights or is on the [facility] inpatient only procedure list (status C) due to: monitoring of fluid status given an inability to regulate fluid balance and the need for administration or restriction of fluids Team Pager( Coverage 17/11): #[phone] PCP: Lorna Bal, PAPER CONSERVATOR [phone] Jody Collins MD 07/27/2022 * Citlali Mcdonald [...] future testing is required, contact the Microbiology Retail Planner. * No growth at 5 days. No [...] drain x 2, oropeza, PIV Anticipated Disposition: exterminator helper care facility Code Status: Attempt Cardiopulmonary [...] of two midnights or is on the [facility] inpatient only procedure list (status C) due to: monitoring of fluid status given an inability to regulate fluid balance and the need for administration or restriction of fluids Team Pager(MD Coverage 17/11): #[phone] PCP: Lorna Bal, PAPER CONSERVATOR [phone] Jody Collins MD 07/26/2022 * Citlali Mcdonald [...] the same area she presented returned to [facility] on 07/22, a repeated CT [...] Sergey Doan MD Infectious Disease Fellow Pager [phone] 07/25/22 (Attending addendum to follow) Associated attestation [...] future testing is required, contact the Microbiology Retail Planner. * No growth at 5 days. No [...] drain x 2, oropeza, PIV Anticipated Disposition: chcf care facility Code Status: Attempt Cardiopulmonary Resuscitation [...] of two midnights or is on the [facility] inpatient only procedure list (status C) due to: monitoring of fluid status given an inability to regulate fluid balance and the need for administration or restriction of fluids Team Pager( Coverage 17/11): #[phone] PCP: Lorna Bal, PAPER CONSERVATOR [phone] Jody Collins MD 07/25/2022 * Anamika Todd [...] Todd PA-C Interventional Radiology IR Team Pager [phone] * Citlali Mcdonald RN - 07/25/2022 4:46 [...] of : 1995 AGE: 27 y.o. Address: [address] [place] [address] Phone: [phone] (home) Mobile: Telephone Information: Referring Provider: Unknown [...] [Transparent Dressings] Itching and Dermatitis Please use [id number] ??? Penicillins Pertinent PMH: Patient Active Problem [...] - DVT PPx: lovenox - Disposition: her chcf care facility - Family support: mother and her chcf care providers - Code Status: Attempt Cardiopulmonary Resuscitation - Inpatient IPI Certification I certify that I am a D-H credentialed attending provider with admitting privileges and that the patient meets or has met medical necessity to require an inpatient IPI level of care meeting a minimumof two midnights or is on the [facility] inpatient only procedure list (status C) due to: monitoring of fluid status given an inability to regulate fluid balance and the need for administration or restriction of fluids Ernesto Willingham MD TEAM/PAGER:[phone] Subjective/24hr events: Says yes to most questions. [...] Intake/Output Summary (Last 24 hours) at 07/24/2022 08 Last data filed at 07/24/2022 0500 Gross [...] for the following: Recent Labs 07/24/22 0525 07/23/22 0300 07/22/221911 WBC 4.4 6.2 5.6 HGB 9.6* 10.5* 11.2* HCT 31.4* 32.7* 36.2 PLATELET 343 364* 449* Recent Labs 07/24/22 0525 07/23/22 0300 07/22/221911 NA 138 141 139 K 3.9 3.6 3.8 CL 104 105 103 CO2 BUN 11 9 10 CREATININE 0.34* 0.31* 0.34* GLUCOSE 89 101 99 CALCIUM 9.1 8.9 9.4 No results for input(s): AST, ALT, ALKPHOS, BILITOT, BILIDIR in the last 72 hours. No results for input(s): URINECULTURE in the last 720 hours. Recent Labs 06/25/22 0855 07/01/22202007/03/22224407/03/22 2305 07/06/22 0621 07/07/22 0341 07/22/22 2115 07/22/227 BLOODCX No growth at 5 days. No growth at 5 days. No growth at 5 days. No growth at 5 days. Escherichia coli detected by PCR Isolate saved. If future testing is required, contact the Microbiology Retail Planner. * No growth at 5 days. No [...] questions please contact the health acute care physician that requested your imaging first. Medications: Scheduled Meds: ??? levoFLOXacin 750 mg [...] - DVT PPx: lovenox - Disposition: her chcf care facility - Family support: mother and her chcf care providers - Code Status: Attempt Cardiopulmonary Resuscitation - Inpatient IPI Certification I certify that I am a D-H credentialed attending provider with admitting privileges and that the patient meets or has met medical necessity to require an inpatient IPI level of care meeting a minimumof two midnights or is on the [facility] inpatient only procedure list (status C) due to: monitoring of fluid status given an inability to regulate fluid balance and the need for administration or restriction of fluids Ernesto Willingham MD TEAM/PAGER:[phone] Subjective/24hr events: Says yes to most questions. [...] future testing is required, contact the Microbiology Retail Planner. * No growth at 5 days. No [...] questions please contact the health acute care physician that requested your imaging first. Medications: Scheduled Meds: ??? [START ON 07/24/2022] [...] All Drainage Procedures 06/25/2022 Mich Martino MD [facility] INTERVENTIONL RAD ??? IR ALL DRAINAGE PROCEDURES 07/04/2022 IR All Drainage Procedures 07/04/2022 Mich Martino MD [facility] INTERVENTIONL RAD ??? IR DRAIN CHECK/CHANGE/REMOVE 07/01/2022 IR Drain Check/Change/Remove 07/01/2022 Jamaal Jenkins, DO [facility] INTERVENTIONL RAD ??? PRO APPLY OF HIP CASTS, TWO LEGS 08/15/2010 CAST APPLICATION, HIP SPICA, BOTH LEGS performed by YAS OLIVER at [facility] OR ? ? PRO I&D, POST SPINE, LUMB/SACR/LUMBOSAC N/A 05/20/2014 @I & D, OPEN, DEEP ABSCESS, LUMBAR, SACRAL, LUMBOSACRAL performed by Freddy Isbell MD at [facility] MAIN OR ? ? PRO I&D, POST SPINE, LUMB/SACR/LUMBOSAC N/A 05/26/2014 @I & D, OPEN, DEEP ABSCESS, LUMBAR, SACRAL, LUMBOSACRAL performed by Freddy Isbell MD at [facility] OR ??? PRO IMPACT TOOTH REMOV COMP BONY N/A 06/14/2018 SURGICAL EXTRACTIONS, REMOVAL OF IMPACTED TOOTH, COMPLETELY BONY (WRVU 1.93) performed by Keith Cotton MD at [facility] OSC ??? PRO OSTEOTOMY FEMUR SHAFT/SUPRACONDY 08/15/2010 ??OSTEOTOMY, FEMUR SHAFT OR SUPRACONDYLAR W/O FIXATION performed by YAS OLIVER at [facility] OR ??? PRO RECONSTRUC HIP SOCKET, RESEC FEM HEAD 08/15/2010 ??ACETABULOPLASTY (GIRDLESTONE), RESECTION FEMORAL HEAD, BILATERAL performed by YAS OLIVER [facility] OR ??? PRO REMOVAL DEEP IMPLANT 08/15/2010 REMOVAL IMPLANT, DEEP, BRUNO performed by YAS OLIVER at [facility] OR ??? PRO REMOVAL ERUPTED TOOTH WITH ELEVATION OF MUCOPERIOSTEAL FLAP N/A 06/14/2018 SURGICAL EXTRACTIONS REQUIRING ELEVATION OF MUCOPERIOSTEAL FLAP AND REMOVAL OF BONE OR SECTION OF TOOTH (WRVU 1.09) performed by Keith Cotton MD at [facility] OSC ??? PRO REMOVE INFUSN DEVICE/PUMP N/A 05/11/2014 REMOVAL OF SPINE INFUSION PUMP performed by Jamaal Samuel MD at [facility] MAIN OR ??? PRO REMOVE SPINAL CANAL CATHETER N/A 05/11/2014 REMOVAL OF INTRATHECAL OR EPIDURAL CATHETER performed by Jamaal Samuel MD at [facility] MAIN OR ??? PRO REPR, DURAL/CSF LEAK, NOT REQ LAMINECTOMY N/A 05/20/2014 @REPAIR DURAL\CSF LEAK,NOT REQUIRING LAMINECTOMY performed by Freddy Isbell MD at [facility] MAIN OR Medications: No current [...] All Drainage Procedures 06/25/2022 Mich Martino MD [facility] INTERVENTIONL RAD ??? IR ALL DRAINAGE PROCEDURES 07/04/2022 IR All Drainage Procedures 07/04/2022 Mich Martino MD [facility] INTERVENTIONL RAD ??? IR DRAIN CHECK/CHANGE/REMOVE 07/01/2022 IR Drain Check/Change/Remove 07/01/2022 Jamaal Jenkins, DO [facility] INTERVENTIONL RAD ??? PRO APPLY OF HIP CASTS, TWO LEGS 08/15/2010 CAST APPLICATION, HIP SPICA, BOTH LEGS performed by YAS OLIVER at [facility] OR ? ? PRO I&D, POST SPINE, LUMB/SACR/LUMBOSAC N/A 05/20/2014 @I & D, OPEN, DEEP ABSCESS, LUMBAR, SACRAL, LUMBOSACRAL performed by Freddy Isbell MD at [facility] OR ? ? PRO I&D, POST SPINE, LUMB/SACR/LUMBOSAC N/A 05/26/2014 @I & D, OPEN, DEEP ABSCESS, LUMBAR, SACRAL, LUMBOSACRAL performed by Freddy Isbell MD at [facility] OR ??? PRO IMPACT TOOTH REMOV COMP BONY N/A 06/14/2018 SURGICAL EXTRACTIONS, REMOVAL OF IMPACTED TOOTH, COMPLETELY BONY (WRVU 1.93) performed by Keith Cotton MD at [facility] OSC ??? PRO OSTEOTOMY FEMUR SHAFT/SUPRACONDY 08/15/2010 ??OSTEOTOMY, FEMUR SHAFT OR SUPRACONDYLAR W/O FIXATION performed by YAS OLIVER at [facility] OR ??? PRO RECONSTRUC HIP SOCKET, RESEC FEM HEAD 08/15/2010 ??ACETABULOPLASTY (GIRDLESTONE), RESECTION FEMORAL HEAD, BILATERAL performed by YAS OLIVER [facility] OR ??? PRO REMOVAL DEEP IMPLANT 08/15/2010 REMOVAL IMPLANT, DEEP, BRUNO performed by YAS OLIVER at [facility] OR ??? PRO REMOVAL ERUPTED TOOTH WITH ELEVATION OF MUCOPERIOSTEAL FLAP N/A 06/14/2018 SURGICAL EXTRACTIONS REQUIRING ELEVATION OF MUCOPERIOSTEAL FLAP AND REMOVAL OF BONE OR SECTION OF TOOTH (WRVU 1.09) performed by Keith Cotton MD at [facility] OSC ??? PRO REMOVE INFUSN DEVICE/PUMP N/A 05/11/2014 REMOVAL OF SPINE INFUSION PUMP performed by Jamaal Samuel MD at [facility] OR ??? PRO REMOVE SPINAL CANAL CATHETER N/A 05/11/2014 REMOVAL OF INTRATHECAL OR EPIDURAL CATHETER performed by Jamaal Samuel MD at [facility] OR ??? PRO REPR, DURAL/CSF [...] quadriplegia ID: 27 y.o. Female presents to [facility] with increased drainage from prior lumbar subcutaneous [...] All Drainage Procedures 06/25/2022 Mich Martino MD [facility] INTERVENTIONL RAD ??? IR ALL DRAINAGE PROCEDURES 07/04/2022 IR All Drainage Procedures 07/04/2022 Mich Martino MD [facility] INTERVENTIONL RAD ??? IR DRAIN CHECK/CHANGE/REMOVE 07/01/2022 IR Drain Check/Change/Remove 07/01/2022 Jamaal Jenkins, DO [facility] INTERVENTIONL RAD ??? PRO APPLY OF HIP CASTS, TWO LEGS 08/15/2010 CAST APPLICATION, HIP SPICA, BOTH LEGS performed by YAS OLIVER at [facility] MAIN OR ? ? PRO I&D, POST SPINE, LUMB/SACR/LUMBOSAC N/A 05/20/2014 @I & D, OPEN, DEEP ABSCESS, LUMBAR, SACRAL, LUMBOSACRAL performed by Freddy Isbell MD at [facility] OR ? ? PRO I&D, POST SPINE, LUMB/SACR/LUMBOSAC N/A 05/26/2014 @I & D, OPEN, DEEP ABSCESS, LUMBAR, SACRAL, LUMBOSACRAL performed by Freddy Isbell MD at [facility] OR ??? PRO IMPACT TOOTH REMOV COMP BONY N/A 06/14/2018 SURGICAL EXTRACTIONS, REMOVAL OF IMPACTED TOOTH, COMPLETELY BONY (WRVU 1.93) performed by Keith Cotton MD at [facility] OSC ??? PRO OSTEOTOMY FEMUR SHAFT/SUPRACONDY 08/15/2010 ??OSTEOTOMY, FEMUR SHAFT OR SUPRACONDYLAR W/O FIXATION performed by YAS OLIVER at [facility] OR ??? PRO RECONSTRUC HIP SOCKET, RESEC FEM HEAD 08/15/2010 ??ACETABULOPLASTY (GIRDLESTONE), RESECTION FEMORAL HEAD, BILATERAL performed by YAS OLIVER [facility] OR ??? PRO REMOVAL DEEP IMPLANT 08/15/2010 REMOVAL IMPLANT, DEEP, BRUNO performed by YAS OLIVER at [facility] OR ??? PRO REMOVAL ERUPTED TOOTH WITH ELEVATION OF MUCOPERIOSTEAL FLAP N/A 06/14/2018 SURGICAL EXTRACTIONS REQUIRING ELEVATION OF MUCOPERIOSTEAL FLAP AND REMOVAL OF BONE OR SECTION OF TOOTH (WRVU 1.09) performed by Keith Cotton MD at [facility] OSC ??? PRO REMOVE INFUSN DEVICE/PUMP N/A 05/11/2014 REMOVAL OF SPINE INFUSION PUMP performed by Jamaal Samuel MD at [facility] OR ??? PRO REMOVE SPINAL CANAL CATHETER N/A 05/11/2014 REMOVAL OF INTRATHECAL OR EPIDURAL CATHETER performed by Jamaal Samuel MD at [facility] OR ??? PRO REPR, DURAL/CSF LEAK, NOT REQ LAMINECTOMY N/A 05/20/2014 @REPAIR DURAL\CSF LEAK,NOT REQUIRING LAMINECTOMY performed by Freddy Isbell MD at [facility] OR Prior To Admission Medications: (Not in a hospital admission) Allergies: Allergies Allergen Reactions ??? Fluoxetine Other (See Comments) HIVES, HEART RACES ??? Tegaderm [Transparent Dressings] Itching and Dermatitis Please use [id number] ??? Penicillins Family History: Family History Problem [...] Administered Date(s) Administered ??? Influenza Vaccine (Novel) [id number], Injectable 02/25/2009 ??? Influenza Vaccine w/Preservative, Split [...] external catheter placed. Will continue to monitor. Day Care Provider at bedside. * Samuel Comer MD - [...] questions please contact the health acute care physician that requested your imaging first. Recent Results (from the past 24 hour(s)) [...] MD 07/22/22 Samuel Comer MD Resident 07/22/22 [id number] Associated attestation - Alek Tavares MD - [...] separate note. Brief Summary: History obtained from tread tuber machine operator 27 y.o. female with history of [...] with plan. Yas John RN, BSN, LALA Spanish Translator Pager [phone] * Plan of Care - Jimbo Willams [...] Name: Anderson Thorpe Decision Maker Contact Information: [phone] (M) Proxy Activated: Yes Functional status prior [...] Discharge: 08/01/2022 Yas John RN, BSN, LALA Spanish Translator Pager [phone] * Plan of Care - Guerita Quinonez [...] for sensory deficits provided, if applicable: yes. community development officer present * Plan of Care - Tasha [...] Masimo, bed alarm in use, purposeful rounding, acute care physician at bed side. * Care Management - [...] Name: Anderson Thorpe Decision Maker Contact Information: [phone] (M) Proxy Activated: Yes Functional status prior [...] Discharge: 07/29/2022 Yas John RN, BSN, LALA Spanish Translator Pager [phone] * Plan of Care - Maren Barnard [...] for sensory deficits provided, if applicable: yes. community development officer present * Plan of Care - Osman [...] [address] Appointed Guardian(s) Contact Information: [phone] (H) [phone] (M) Proxy Activated: Yes Guardianship paperwork on [...] device, hospital bed Home Address listed as: [address] [place] [id number] Social & Family Supports: All names listed below confirmed with patient as current and correct Extended Emergency Contact Information Primary Emergency Contact: Anderson Thorpe [facility] Mobile Relation: Mother Secondary Emergency Contact: Curt Philippe [facility] Mobile Relation: Step parent Current [...] N/A ; Prescription Coverage: Yes Preferred Pharmacy: [facility] [address] [place] [address] [facility] [address] [place] [address] [facility] - [place], [place] - [address] [facility] [address] [facility] [address] [facility] [address] - [place], [place] - [address] [facility] [address] [facility] [address] [place] Status: Patient is a : No Primary Care Provider listed: Lorna Bal APRN [phone] Patient/Caregiver Goals of Treatment: return home with [...] care planning. Yas John RN, BSN, LALA Spanish Translator Pager [phone] * Plan of Care - Osman Bowen RN - 07/24/2022 6:26 PM EDT OUTCOME EVALUATION NOTE: OUTCOME SUMMARY: Patient brightens with approach, on room air, acute care physician at bedside, IR placed 2 carmella drains [...] included. DEPARTMENT OF INFECTIOUS DISEASE & INTERNATIONAL [facility] INFECTIOUS DISEASE CONSULT NOTE Patient Name: Tana Cavazos PCP: Lorna Bal APRN PCP phone #: [phone] Reason for Admission: Lumbar subcutaneous abscesses with [...] to the ED today. Upon arrival to [facility] she was found afebrile, hemodynamically stable. Normal [...] 3.8 4.2 CL 105 103 104 CO2 23 BUN 9 10 8 CREATININE 0.31* 0.34* [...] the same area she presented returned to [facility] on 07/22, a repeated CT [...] following additions/modifications: Patient was recently admitted to [facility] in early June 2022, at which point [...] of purulent material. She was re-admitted to [facility] on 07/22 for ongoing management, at which [...] on the date of service on the [id number] encounter, chart review, clinical decision making, documentation, [...] [place] procedures, removal of a baclofen pumpin 2015 complicated by infection requiring multiple washouts and [...] Discuss with Dr. Christy Menchaca MD Pager: #[phone] 07/23/22 12:31 PM Future Appointments Date Time Provider Department Center 07/31/2022 1:00 PM Lilli Joy APRN [facility] ID [id number] [facility] 08/13/2022 11:30 AM Sergey Keane MD [facility] ID [id number] [facility] Associated attestation - Joe Harrison MD - 07/25/2022 12:47 PM EDT Recommend IR drainage. Try to avoid surgery. However, may need debridement and VAC placement. Joe Harrison MD [facility] Sp[facility] - Department of Orthopaedic Surgery Chemical Supervisor - Department of Orthopedic Surgery / Academics and Research Glost Tile Sorter Professor - [facility] 07/25/2022 * Consult Note - Oriana Rondon RP - 07/23/2022 1:09 AM EDT TelePharmacy Home Medication List Update for Medication Reconciliation 07/23/22 1:09 AM Tana Cavazos 1995 Allergies Allergen Reactions ??? Fluoxetine Other (See Comments) HIVES, HEART RACES ??? Tegaderm [Transparent Dressings] Itching and Dermatitis Please use [id number] ??? Penicillins ??? 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 Fannie reports also using [...] PM EST Office [place] [address] Hollie Ambriz MD [facility] [place] [address] documented as of this encounter Procedures Procedure Name Priority Date/Time Associated Diagnosis Comments HEMOGRAM Routine 08/01/2022 5:47 AM EDT DIFFERENTIAL, AUTOMATED Routine 08/01/2022 5:47 AM EDT HC CBC,PLT & AUTO DIFF Routine 08/01/2022 5:47 AM EDT BLOOD CULTURE Routine 07/31/2022 1:09 PM EDT HC BLOOD CULTURE- STAT 07/31/2022 1:0 4 PM EDT CRP, ACUTE INFLAMMATION Routine 07/31/2022 4:53 AM EDT HEMOGRAM Routine 07/31/2022 4:53 AM EDT DIFFERENTIAL, AUTOMATED Routine 07/31/2022 4:53 AM EDT HC VENIPUNCTURE Routine 07/31/2022 4:53 AM EDT BASIC METABOLIC PANEL Routine 07/31/2022 4:53 AM EDT HEMOGRAM Routine 07/30/2022 5:14 AM EDT DIFFERENTIAL, AUTOMATED Routine 07/30/2022 5:14 AM EDT HC BLOOD CULTURE- Routine 07/30/2022 5:1 4 AM EDT HC VENIPUNCTURE Routine 07/30/2022 5:14 AM EDT CRP, ACUTE INFLAMMATION Routine 07/28/2022 11:27 PM EDT HEMOGRAM STAT 07/28/2022 11:27 PM EDT DIFFERENTIAL, AUTOMATED STAT 07/28/2022 11:27 PM EDT HC L-LACTATE STAT 07/28/2022 11:27 PM EDT HC BLOOD CULTURE- STAT 07/28/2022 11: 27 PM EDT HC VENIPUNCTURE STAT 07/28/2022 11:27 PM EDT PHOSPHORUS STAT 07/28/2022 11:27 PM EDT MAGNESIUM STAT 07/28/2022 11:27 PM EDT HC LIPASE STAT 07/28/2022 11:27 PM EDT COMPREHENSIVE METABOLIC PANEL STAT 07/28/2022 11:27 PM EDT URINALYSIS WITH REFLEX CULTURE Routine 07/28/2022 11:20 PM EDT HC VENIPUNCTURE STAT 07/28/2022 11:11 PM EDT XR CHEST ONE VIEW Routine 07/28/2022 8:1 1 PM EDT RAPID COVID-19 PCR ([facility]) Routine 07/28/2022 8:01 PM EDT RESPIRATORY PANEL PCR Routine 07/28/2022 8:[address] LUMBAR SPINE WITH CONTRAST Routine 07/28/2022 11:29 AM EDT CRP, ACUTE INFLAMMATION Routine 07/28/2022 5:02 AM EDT HEMOGRAM Routine 07/28/2022 5:02 AM EDT DIFFERENTIAL, AUTOMATED Routine 07/28/2022 5:02 AM EDT HC CBC,PLT & AUTO DIFF Routine 07/28/2022 5:02 AM EDT BASIC METABOLIC PANEL Routine 07/28/2022 5:02 AM EDT CRP, ACUTE INFLAMMATION Routine 07/27/2022 2:45 AM EDT HEMOGRAM Routine 07/27/2022 2:45 AM EDT DIFFERENTIAL, AUTOMATED Routine 07/27/2022 2:45 AM EDT HC L-LACTATE Routine 07/27/2022 2:45 AM EDT HC ESR-SEDIMENTATION RATE, BLOOD Routine 07/27/2022 2:45 AM EDT HC CBC,PLT & AUTO DIFF Routine 07/27/2022 2:45 AM EDT HC MAGNESIUM, SERUM Routine 07/27/2022 2 :45 AM EDT BASIC METABOLIC PANEL Routine 07/27/2022 2:45 AM EDT CRP, ACUTE INFLAMMATION Routine 07/26/2022 4:46 AM EDT HEMOGRAM Routine 07/26/2022 4:46 AM EDT DIFFERENTIAL, AUTOMATED Routine 07/26/2022 4:46 AM EDT HC ESR-SEDIMENTATION RATE, BLOOD Routine 07/26/2022 4:46 AM EDT HC VENIPUNCTURE Routine 07/26/2022 4:46 AM EDT BASIC METABOLIC PANEL Routine 07/26/2022 4:46 AM EDT EKG 12-LEAD Routine 07/25/2022 12:42 PM EDT QT prolongation HEMOGRAM Routine 07/25/2022 4:37 AM EDT DIFFERENTIAL, AUTOMATED Routine 07/25/2022 4:37 AM EDT HC VENIPUNCTURE Routine 07/25/2022 4:37 AM EDT BASIC METABOLIC PANEL Routine 07/25/2022 4:37 AM EDT IR ALL [...] 07/24/2022 5:25 AM EDT BASIC METABOLIC PANEL Routine 07/24/2022 5:25 AM EDT HEMOGRAM Routine 07/23/2022 3:00 AM EDT DIFFERENTIAL, AUTOMATED Routine 07/23/2022 3:00 AM EDT HC CBC,PLT & AUTO DIFF Routine 07/23/2022 3:00 AM EDT BASIC METABOLIC PANEL Routine 07/23/2022 3:00 AM EDT BLOOD CULTURE [...] WITH CONTRAST STAT 07/22/2022 7:25 PM EDT CRP, ACUTE INFLAMMATION STAT 07/22/2022 7:12 PM EDT HEMOGRAM STAT 07/22/2022 7:12 PM EDT DIFFERENTIAL, AUTOMATED STAT 07/22/2022 7:12 PM EDT HC ESR-SEDIMENTATION RATE, BLOOD STAT 07/22/2022 7:12 PM EDT HC CBC,PLT & AUTO DIFF STAT 07/22/2022 7:12 PM EDT BASIC METABOLIC PANEL STAT 07/22/2022 7:12 PM EDT documented in [...] * Differential, Automated (08/01/2022 5:47 AM EDT) Neutrophil % 48.3 % [facility] Neutrophil Absolute 2.57 1.70 - 6.10 x10(3)/[facility] Lymph % 42.1 % [facility] Lymphocytes Abs 2.2 0.9 - 3.2 x10(3)/[facility] Monocyte % 6.4 % [facility] Monocyte Abs 0.3 0.3 - 0.9 x10(3)/[facility] Eos % 2.6 % [facility] Eosinophils Abs 0.1 0.0 - 0.4 x10(3)/[facility] Basophil % 0.4 % [facility] Baso Absolute 0.0 0.0 - 0.1 x10(3)/[facility] Immature Gran % 0.20 % [facility] Comment: Immature granulocytes(IG's)percentage and absolute count will include metamyelocytes, myelocytes, and promyelocytes. Blood smears from CBCs yielding IG's will be scanned manually for concordance. If this scan disagrees with the automated IG or if promyelocytes are noted, a manual differential will be performed. Immature Gran Absolute 0.01 0.00 - 0.04 x10(3)/[facility] Blood 08/01/2022 5:47 AM EDT 08/01/2022 6:03 AM EDT Narrative Resulting Agency Comment Spec In Lab Jody Collins MD [place] [address] * (ABNORMAL) Hemogram (08/01/2022 5:47 AM EDT) White Blood Cell 5.3 4.0 - 9.5 x10(3)/mc L [facility] Red Blood Cell 3.99(L) 4.00 - 5.21 x10(6)/mc L [facility] Hemoglobin 9.9(L) 11.7 - 15.5 g/dL [facility] Hematocrit 32.2(L) 35.7 - 45.8 % [facility] Mean Cell Volume 80.7(L) 82.6 - 94.4 fL [facility] Mean Cell Hemoglobin 24.8(L) 27.1 - 32.0 pg [facility] Mean Cell Hemoglobin Concentration 30.7(L) 31.7 - 35.0 g/dL [facility] Platelet 329 145 - 357 x10(3)/mc L [facility] RDW Standard Deviation 53.1(H) 37.0 - 46.0 fL [facility] RDW coefficient of variation 18.1(H) 11.5 - 14.1 % [facility] Mean Platelet Volume 9.3 7.6 - 12.9 fL [facility] NRBC% auto 0.0 % [facility] NRBC Absolute 0.000 0.000 - 0.000 x10(3)/mc L [facility] Blood 08/01/2022 5:47 AM EDT 08/01/2022 6:03 AM EDT Narrative Resulting Agency Comment Spec In Lab Jody Collins MD [place] [address] * Blood culture (07/31/2022 1:09 PM EDT) Blood Culture No growth at 5 days. [facility] Blood STRUCTURE OF LEFT HAND / Unknown 07/31/2022 1:09 PM EDT 07/31/2022 2:09 PM EDT Comment:#2 Narrative Resulting Agency Comment Spec In Lab Jody Collins MD MICROBIOLOGY - BLOOD ORDERABLES Performing Organization Address City/[facility]/ZIP Co de Phone Number [facility] [place] [address] * Blood culture (07/31/2022 1:04 PM EDT) Blood Culture No growth at 5 days. [facility] Blood STRUCTURE OF RIGHT HAND / Unknown 07/31/2022 1:04 PM EDT 07/31/2022 2:09 PM EDT Comment:#1 Narrative Resulting Agency Comment Spec In Lab Jody Collins MD MICROBIOLOGY - BLOOD ORDERABLES Performing Organization Address [facility] Co de Phone Number [facility] [place] [address] * Differential, Automated (07/31/2022 4:53 AM EDT) Neutrophil % 42.0 % [facility] Neutrophil Absolute 2.02 1.70 - 6.10 x10(3)/[facility] Lymph % 47.6 % [facility] Lymphocytes Abs 2.3 0.9 - 3.2 x10(3)/[facility] Monocyte % 7.3 % [facility] Monocyte Abs 0.4 0.3 - 0.9 x10(3)/[facility] Eos % 2.5 % [facility] Eosinophils Abs 0.1 0.0 - 0.4 x10(3)/[facility] Basophil % 0.4 % [facility] Baso Absolute 0.0 0.0 - 0.1 x10(3)/[facility] Immature Gran % 0.20 % [facility] Comment: Immature granulocytes(IG's)percentage and absolute count will include metamyelocytes, myelocytes, and promyelocytes. Blood smears from CBCs yielding IG's will be scanned manually for concordance. If this scan disagrees with the automated IG or if promyelocytes are noted, a manual differential will be performed. Immature Gran Absolute 0.01 0.00 - 0.04 x10(3)/[facility] Blood 07/31/2022 4:53 AM EDT 07/31/2022 5:07 AM EDT Narrative Resulting Agency Comment Spec In Lab Jody Collins MD HEMATOLOGY ORDERABLE S Performing Organization Address City/[facility]/ZIP Co de Phone Number [facility] [place] [address] * (ABNORMAL) Hemogram (07/31/2022 4:53 AM EDT) White Blood Cell 4.8 4.0 - 9.5 x10(3)/mc L [facility] Red Blood Cell 4.16 4.00 - 5.21 x10(6)/mc L [facility] Hemoglobin 10.3(L) 11.7 - 15.5 g/dL [facility] Hematocrit 33.3(L) 35.7 - 45.8 % [facility] Mean Cell Volume 80.0(L) 82.6 - 94.4 fL [facility] Mean Cell Hemoglobin 24.8(L) 27.1 - 32.0 pg [facility] Mean Cell Hemoglobin Concentration 30.9(L) 31.7 - 35.0 g/dL [facility] Platelet 302 145 - 357 x10(3)/mc L [facility] RDW Standard Deviation 53.7(H) 37.0 - 46.0 fL [facility] RDW coefficient of variation 18.5(H) 11.5 - 14.1 % [facility] Mean Platelet Volume 9.2 7.6 - 12.9 fL [facility] NRBC% auto 0.0 % [facility] NRBC Absolute 0.000 0.000 - 0.000 x10(3)/mc L [facility] Blood 07/31/2022 4:53 AM EDT 07/31/2022 5:07 AM EDT Narrative Resulting Agency Comment Spec In Lab Jody Collins MD HEMATOLOGY ORDERABLE S Performing Organization Address City/[facility]/ZIP Co de Phone Number [facility] [place] [address] * (ABNORMAL) CRP, acute inflammation (07/31/2022 4:53 AM EDT) C-Reactive Protein 28.8(H) <=4.9 mg/L [facility] Comment:result rechecked-KS Blood 07/31/2022 4:53 AM EDT 07/31/2022 5:07 AM EDT Narrative Resulting Agency Comment Spec In Lab Jody Collins MD CHEMISTRY ORDERABLES [facility] [place] [address] * (ABNORMAL) Basic Metabolic Panel (non-fasting) (07/31/2022 4:53 AM EDT) Glucose 88 65 - 199 mg/dL [facility] Comment:Diabetes: >=200 mg/d L plus symptoms Blood Urea Nitrogen 11 8 - 18 mg/dL [facility] Comment:result rechecked-KS Creatinine 0.29(L) 0.70 - 1.20 mg/dL [facility] Sodium 138 135 - 145 mmol/L [facility] Potassium 3.9 3.5 - 5.0 mmol/L [facility] Comment: Please note: ??Patients with WBC >100,000 may have falsely elevated Potassium levels. ??For accurate Potassium quantification in these patients send serum separator tube (gold top) for subsequent determinations. ??Contact the Clinical Chemistry Laboratory if there are any questions. Chloride 103 98 - 107 mmol/L [facility] Carbon Dioxide 24 22 - 31 mmol/L [facility] Anion Gap 11 5 - 15 mmol/L [facility] Calcium 9.3 8.5 - 10.5 mg/dL [facility] Est Glomerular Filtration Rate 148 >=60 mL/min/1. 73 m?? [facility] Comment: This patient's estimated GFR was [...] In Lab Jody Collins MD CHEMISTRY ORDERABLES [facility] [place] [address] * Differential, Automated (07/30/2022 5:14 AM EDT) Neutrophil % 44.1 % [facility] Neutrophil Absolute 1.79 1.70 - 6.10 x10(3)/[facility] Lymph % 42.9 % [facility] Lymphocytes Abs 1.7 0.9 - 3.2 x10(3)/[facility] Monocyte % 9.1 % [facility] Monocyte Abs 0.4 0.3 - 0.9 x10(3)/[facility] Eos % 3.2 % [facility] Eosinophils Abs 0.1 0.0 - 0.4 x10(3)/[facility] Basophil % 0.5 % [facility] Baso Absolute 0.0 0.0 - 0.1 x10(3)/[facility] Immature Gran % 0.20 % [facility] Comment: Immature granulocytes(IG's)percentage and absolute count will include metamyelocytes, myelocytes, and promyelocytes. Blood smears from CBCs yielding IG's will be scanned manually for concordance. If this scan disagrees with the automated IG or if promyelocytes are noted, a manual differential will be performed. Immature Gran Absolute 0.01 0.00 - 0.04 x10(3)/[facility] Blood 07/30/2022 5:14 AM EDT 07/30/2022 5:38 AM EDT Narrative Resulting Agency Comment Spec In Lab Jody Collins MD HEMATOLOGY ORDERABLE S [facility] [place] [address] * (ABNORMAL) Hemogram (07/30/2022 5:14 AM EDT) White Blood Cell 4.1 4.0 - 9.5 x10(3)/ L [facility] Red Blood Cell 4.02 4.00 - 5.21 x10(6)/mc L [facility] Hemoglobin 9.9(L) 11.7 - 15.5 g/dL [facility] Hematocrit 31.7(L) 35.7 - 45.8 % [facility] Mean Cell Volume 78.9(L) 82.6 - 94.4 fL [facility] Mean Cell Hemoglobin 24.6(L) 27.1 - 32.0 pg [facility] Mean Cell Hemoglobin Concentration 31.2(L) 31.7 - 35.0 g/dL [facility] Platelet 305 145 - 357 x10(3)/mc L [facility] RDW Standard Deviation 53.1(H) 37.0 - 46.0 fL [facility] RDW coefficient of variation 18.5(H) 11.5 - 14.1 % [facility] Mean Platelet Volume 9.6 7.6 - 12.9 fL [facility] NRBC% auto 0.0 % [facility] NRBC Absolute 0.000 0.000 - 0.000 x10(3)/ L [facility] Blood 07/30/2022 5:14 AM EDT 07/30/2022 5:38 AM EDT Narrative Resulting Agency Comment Spec In Lab Jody Collins MD HEMATOLOGY ORDERABLE S [facility] [place] [address] * Blood culture (07/30/2022 5:14 AM EDT) Blood Culture No growth at 5 days. [facility] Blood STRUCTURE OF LEFT HAND / Unknown 07/30/2022 5:14 AM EDT 07/30/2022 6:38 AM EDT Narrative Resulting Agency Comment Spec In Lab Yury Saavedra MD MICROBIOLOGY - BLOO D ORDERABLES Performing Organization Address City/[facility]/ZIP Co de Phone Number [facility] [place] [address] * Phosphorus (07/28/2022 11:27 PM EDT) Pathologist [facility] Phosphorus 4.2 2.5 - 4.5 mg/dL [facility] Blood Venous Draw / Unknown 07/28/2022 11:27 PM EDT 07/28/2022 11:44 PM EDT Narrative Resulting Agency Comment Spec In Lab Shea Fox MD CHEMISTRY ORDERABLES Performing Organization Address [facility] Co de Phone Number [facility] [place] [address] * Magnesium (07/28/2022 11:27 PM EDT) Pathologist [facility] Magnesium 0.73 0.69 - 1.07 mmol/L [facility] Blood Venous Draw / Unknown 07/28/2022 11:27 PM EDT 07/28/2022 11:44 PM EDT Narrative Resulting Agency Comment Spec In Lab Shea Fox MD CHEMISTRY ORDERABLES Performing Organization Address [facility] Co de Phone Number [facility] [place] [address] * Differential, Automated (07/28/2022 11:27 PM EDT) Neutrophil % 51.2 % [facility] Neutrophil Absolute 2.52 1.70 - 6.10 x10(3)/[facility] Lymph % 37.3 % [facility] Lymphocytes Abs 1.8 0.9 - 3.2 x10(3)/[facility] Monocyte % 9.1 % [facility] Monocyte Abs 0.4 0.3 - 0.9 x10(3)/[facility] Eos % 1.4 % [facility] Eosinophils Abs 0.1 0.0 - 0.4 x10(3)/[facility] Basophil % 0.6 % [facility] Baso Absolute 0.0 0.0 - 0.1 x10(3)/[facility] Immature Gran % 0.40 % [facility] Comment: Immature granulocytes(IG's)percentage and absolute count will include metamyelocytes, myelocytes, and promyelocytes. Blood smears from CBCs yielding IG's will be scanned manually for concordance. If this scan disagrees with the automated IG or if promyelocytes are noted, a manual differential will be performed. Immature Gran Absolute 0.02 0.00 - 0.04 x10(3)/[facility] Blood 07/28/2022 11:2 7 PM EDT 07/28/2022 11:34 PM EDT Narrative Resulting Agency Comment Spec In Lab Shea Fox MD HEMATOLOGY ORDERABLE S Performing Organization Address City/State/[facility] Co de Phone Number [facility] [place] [address] * (ABNORMAL) Hemogram (07/28/2022 11:27 PM EDT) White Blood Cell 4.9 4.0 - 9.5 x10(3)/[facility] Red Blood Cell 4.06 4.00 - 5.21 x10(6)/[facility] Hemoglobin 10.0(L) 11.7 - 15.5 g/dL [facility] Hematocrit 32.3(L) 35.7 - 45.8 % [facility] Mean Cell Volume 79.6(L) 82.6 - 94.4 fL [facility] Mean Cell Hemoglobin 24.6(L) 27.1 - 32.0 pg [facility] Mean Cell Hemoglobin Concentration 31.0(L) 31.7 - 35.0 g/dL [facility] Platelet 303 145 - 357 x10(3)/[facility] RDW Standard Deviation 53.3(H) 37.0 - 46.0 fL [facility] RDW coefficient of variation 18.5(H) 11.5 - 14.1 % [facility] Mean Platelet Volume 9.2 7.6 - 12.9 fL [facility] NRBC% auto 0.0 % [facility] NRBC Absolute 0.000 0.000 - 0.000 x10(3)/mc L [facility] Blood 07/28/2022 11:2 7 PM EDT 07/28/2022 11:34 PM EDT Narrative Resulting Agency Comment Spec In Lab Shea Fox MD HEMATOLOGY ORDERABLE S [facility] [address] [place] [address] * (ABNORMAL) Blood culture (07/28/2022 11:27 PM EDT) Blood Culture Pseudomonas oryzihabitans isolated Isolate saved. If future testing is required, contact the Microbiology Retail Planner. (A) [facility] Gram Stain Aerobic Growth detected in aerobic bottle. Gram Negative Rods seen Results called to and read back by Guerita Quinonez RN ??07/30/22 02:02:27 (A) [facility] Organism Pseudomonas oryzihabitans(A) [facility] Organism Gram Negative Rods(A) [facility] Blood 07/28/2022 11:2 7 PM EDT [...] MICROBIOLOGY - BLOOD ORDERABLES Performing Organization Address City/[facility] Co de Phone Number [facility] [place] [address] * Lactate, whole blood, send to lab ([facility]) (07/28/2022 11:27 PM EDT) Lactate WB 1.7 0.5 - 2.2 mmol/L [facility] Blood 07/28/2022 11:2 7 PM EDT 07/28/2022 11:33 PM EDT Narrative Resulting Agency Comment Spec In Lab Shea Fox MD CHEMISTRY ORDERABLES Performing Organization Address [facility] Co de Phone Number [facility] [place] [address] * Lipase (07/28/2022 11:27 PM EDT) Lipase 29 0 - 60 unit/L [facility] Blood 07/28/2022 11:2 7 PM EDT 07/28/2022 11:34 PM EDT Narrative Resulting Agency Comment Spec In Lab Shea Fox MD CHEMISTRY ORDERABLES Performing Organization Address [facility] Co de Phone Number [facility] [place] [address] * (ABNORMAL) Comprehensive metabolic panel (non-fasting) (07/28/2022 11:27 PM EDT) Glucose 98 65 - 199 mg/dL [facility] Comment:Diabetes: >=200 mg/d L plus symptoms Blood Urea Nitrogen 7(L) 8 - 18 mg/dL [facility] Creatinine 0.30(L) 0.70 - 1.20 mg/dL [facility] Sodium 138 135 - 145 mmol/L [facility] Potassium 3.9 3.5 - 5.0 mmol/L [facility] Comment: Please note: ??Patients with WBC >100,000 may have falsely elevated Potassium levels. ??For accurate Potassium quantification in these patients send serum separator tube (gold top) for subsequent determinations. ??Contact the Clinical Chemistry Laboratory if there are any questions. Chloride 102 98 - 107 mmol/L [facility] Carbon Dioxide 25 22 - 31 mmol/L [facility] Anion Gap 11 5 - 15 mmol/L [facility] Calcium 9.2 8.5 - 10.5 mg/dL [facility] Protein, Total 7.3 6.1 - 8.0 g/dL [facility] Albumin 3.6 3.2 - 5.2 g/dL [facility] Aspartate Aminotransferase 35(H) 0 - 30 unit/L [facility] Alanine Aminotransferase 42(H) 0 - 30 unit/L [facility] Alkaline Phosphatase 182(H) 35 - 105 unit/L [facility] Bilirubin, Total 0.2 0.2 - 1.3 mg/dL [facility] Est Glomerular Filtration Rate 147 >=60 mL/min/1. 73 m?? [facility] Comment: This patient's estimated GFR was [...] In Lab Shea Fox MD CHEMISTRY ORDERABLES [facility] [place] [address] * (ABNORMAL) CRP, acute inflammation (07/28/2022 11:27 PM EDT) C-Reactive Protein 51.5(H) <=4.9 mg/L [facility] Blood 07/28/2022 11:2 7 PM EDT 07/28/2022 11:44 PM EDT Narrative Resulting Agency Comment Spec In Lab Jody Collins MD CHEMISTRY ORDERABLES Performing Organization Address [facility] Co de Phone Number [facility] [place] [address] * Urinalysis with reflex Culture (07/28/2022 11:20 PM EDT) Glucose, Urine Dipstick Negative Negative mg/dL [facility] Protein, Urine Dipstick Negative Negative mg/dL [facility] Bilirubin, Urine Dipstick Negative Negative mg/dL [facility] Comment: Clinical correlation required for positive Urine Bilirubin results as false positive may occur with some drugs and drug related products. If a false positive is suspected a serum total bilirubin should be considered if clinically indicated. Urobilinogen, Urine Dipstick Normal Normal mg/dL [facility] pH, Urn (dipstick) 7.5 5.0 - 8.0 [facility] Blood, Urine Dipstick Negative Negative mg/dL [facility] Ketone, Urine Dipstick Negative Negative mg/dL [facility] Nitrite, Urine Dipstick Negative Negative [facility] Leukocytes, Urine Dipstick Negative Negative mcL [facility] Appearance, Urine Dipstick Clear Clear [facility] Specific Ceres Urine Automated 1.013 1.005 - 1.030 [facility] Color, Urine Dipstick Yellow Yellow [facility] Reflex to Culture No [facility] Straight Catheter Urine 07/28/2022 11:20 PM EDT 07/29/2022 12:04 AM EDT Narrative Resulting Agency Comment Spec In Lab Shea Fox MD URINE ORDERABLES Performing Organization Address City/[facility]/ZIP Co de Phone Number [facility] [place] [address] * Blood culture (07/28/2022 11:11 PM EDT) Blood Culture No growth at 5 days. [facility] Blood 07/28/2022 11:1 1 PM EDT 07/29/2022 12:17 AM EDT Comment:R hand Narrative Resulting Agency Comment Spec In Lab Shea Fox MD MICROBIOLOGY - BLOOD ORDERABLES [facility] [place] [address] * XR Chest One View (07/28/2022 8:11 [...] questions please contact the health acute care physician that requested your imaging first. [...] have questions please contactthe health acute care physician that requested your imaging first. Jody Collins MD IMG DX ORDERABLES * (ABNORMAL) Respiratory Panel PCR (07/28/2022 8:01 PM EDT) Respiratory Panel Source [employer] UP OPERATOR JIG Swab [facility] Respiratory Panel PCR Positive(A) Negative [facility] Comment: Respiratory Panels are performed on the [employer], using multiplexed PCR nucleic acid detection. ??Negative results do not preclude respiratory infection and should not be used as the sole basis for diagnosis, treatment or other management decisions. Adenovirus Not Detected Not Detected [facility] Coronavirus HKU1 Not Detected Not Detected [facility] Coronavirus NL63 Not Detected Not Detected [facility] Coronavirus 229E Not Detected Not Detected [facility] Coronavirus OC43 Not Detected Not Detected [facility] SARS-CoV-2 Not Detected Not Detected [facility] Comment: Testing for SARS-CoV-2 (Severe acute respiratory syndrome coronavirus 2) to aid in the diagnosis of COVID-19 is performed using the [employer] Respiratory Panel 2.1 (zoidu) as authorized by the FDA issued Emergency Use Authorization (EUA). This panel also tests for multiple other viral and bacterial pathogens. This assay is intended for In-vitro Diagnostic (IVD) use with nasopharyngeal swabs in viral transport media. The assay is performed based on the instructions for use and additional guidance provided by the FDA. Testing is performed in laboratories within the [facility], each of which is certified under [...] fact sheets at the following FDA website: https://www.fda.gov/medical-devices/dwszejtjphu-rrcciqw-9837-xjwfu-01-ctagdiadm- use-a cywxqtxcrhytk-xmxaqiq-pyrmuvz/fnser-nsjhdmehrtf-goax Human Metapneumovirus Not Detected Not Detected [facility] Human Rhinovirus/Enterov irus Detected(A) Not Detected [facility] Influenza A Not Detected Not Detected [facility] Influenza B Not Detected Not Detected [facility] Parainfluenza 1 Not Detected Not Detected [facility] Parainfluenza 2 Not Detected Not Detected [facility] Parainfluenza 3 Not Detected Not Detected [facility] Parainfluenza 4 Not Detected Not Detected [facility] Respiratory Syncytial Virus Not Detected Not Detected [facility] Chlamydophila pneumoniae Not Detected Not Detected [facility] Mycoplasma pneumoniae Not Detected Not Detected [facility] Nasopharyngeal Swab Other / Unknown 07/28 8:01 PM EDT 07/28/2022 8:29 PM EDT Comment:Symptoms->Fever / Re spiratory Symptoms Narrative Resulting Agency Comment Spec In Lab Shea Fox MD MICROBIOLOGY - [facility] AL ORDERABLES [facility] [place] [address] * COVID-19 PCR (07/28/2022 8:01 PM EDT) SARS-CoV-2 RNA (Rapid) Not Detected Not Detected [facility] Comment: This result should be interpreted [...] using the Simplexa COVID-19 Direct Assay by [employer] as authorized by the FDA issued Emergency [...] Department of Pathology and Laboratory Medicine at [facility], certified under the Clinical Laboratory Improvement Amendments [...] fact sheets at the following FDA website: https://www.fda.gov/medical-devices/ohflsxxhkny-kfuablo-6810-wepbf-77-epbqmjfeg- use-a oueebtjryltyv-decsddx-ekmjdjh/dezbw-pcmdcwummkg-phfw SARS-CoV-2 Source [employer]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 [...] have questions please contactthe health acute care physician that requested your imaging first. Jody Collins MD IMG CT ORDERABLES * Differential, Automated (07/28/2022 5:02 AM EDT) Neutrophil % 52.9 % [facility] Neutrophil Absolute 2.31 1.70 - 6.10 x10(3)/[facility] Lymph % 34.3 % [facility] Lymphocytes Abs 1.5 0.9 - 3.2 x10(3)/[facility] Monocyte % 11.2 % [facility] Monocyte Abs 0.5 0.3 - 0.9 x10(3)/[facility] Eos % 1.1 % [facility] Eosinophils Abs 0.0 0.0 - 0.4 x10(3)/[facility] Basophil % 0.5 % [facility] Baso Absolute 0.0 0.0 - 0.1 x10(3)/[facility] Immature Gran % 0.00 % [facility] Comment: Immature granulocytes(IG's)percentage and absolute count will include metamyelocytes, myelocytes, and promyelocytes. Blood smears from CBCs yielding IG's will be scanned manually for concordance. If this scan disagrees with the automated IG or if promyelocytes are noted, a manual differential will be performed. Immature Gran Absolute 0.00 0.00 - 0.04 x10(3)/[facility] Blood 07/28/2022 5:02 AM EDT 07/28/2022 5:24 AM EDT Narrative Resulting Agency Comment Spec In Lab Jody Collins MD HEMATOLOGY ORDERABLE S [facility] [place] [address] * (ABNORMAL) Hemogram (07/28/2022 5:02 AM EDT) White Blood Cell 4.4 4.0 - 9.5 x10(3)/mc L [facility] Red Blood Cell 3.83(L) 4.00 - 5.21 x10(6)/mc L [facility] Hemoglobin 9.5(L) 11.7 - 15.5 g/dL [facility] Hematocrit 30.3(L) 35.7 - 45.8 % [facility] Mean Cell Volume 79.1(L) 82.6 - 94.4 fL [facility] Mean Cell Hemoglobin 24.8(L) 27.1 - 32.0 pg [facility] Mean Cell Hemoglobin Concentration 31.4(L) 31.7 - 35.0 g/dL [facility] Platelet 295 145 - 357 x10(3)/mc L [facility] RDW Standard Deviation 53.1(H) 37.0 - 46.0 fL [facility] RDW coefficient of variation 18.3(H) 11.5 - 14.1 % [facility] Mean Platelet Volume 9.5 7.6 - 12.9 fL [facility] NRBC% auto 0.0 % [facility] NRBC Absolute 0.000 0.000 - 0.000 x10(3)/mc L [facility] Blood 07/28/2022 5:02 AM EDT 07/28/2022 5:24 AM EDT Narrative Resulting Agency Comment Spec In Lab Jody Collins MD HEMATOLOGY ORDERABLE S [facility] [place] [address] * (ABNORMAL) CRP, acute inflammation (07/28/2022 5:02 AM EDT) C-Reactive Protein 33.1(H) <=4.9 mg/L [facility] Blood 07/28/2022 5:02 AM EDT 07/28/2022 5:24 AM EDT Narrative Resulting Agency Comment Spec In Lab Jody Collins MD CHEMISTRY ORDERABLES [facility] [place] [address] * (ABNORMAL) Basic Metabolic Panel (non-fasting) (07/28/2022 5:02 AM EDT) Glucose 91 65 - 199 mg/dL [facility] Comment:Diabetes: >=200 mg/d L plus symptoms Blood Urea Nitrogen 10 8 - 18 mg/dL [facility] Creatinine 0.28(L) 0.70 - 1.20 mg/dL [facility] Sodium 138 135 - 145 mmol/L [facility] Potassium 4.0 3.5 - 5.0 mmol/L [facility] Comment: Please note: ??Patients with WBC >100,000 may have falsely elevated Potassium levels. ??For accurate Potassium quantification in these patients send serum separator tube (gold top) for subsequent determinations. ??Contact the Clinical Chemistry Laboratory if there are any questions. Chloride 103 98 - 107 mmol/L [facility] Carbon Dioxide 25 22 - 31 mmol/L [facility] Anion Gap 10 5 - 15 mmol/L [facility] Calcium 8.8 8.5 - 10.5 mg/dL [facility] Est Glomerular Filtration Rate 150 >=60 mL/min/1. 73 m?? [facility] Comment: This patient's estimated GFR was [...] Collins MD CHEMISTRY ORDERABLES Performing Organization Address City/[facility]/[place] [address] * Differential, Automated (07/27/2022 2:45 AM EDT) Neutrophil % 48.7 % [facility] Neutrophil Absolute 2.57 1.70 - 6.10 x10(3)/[facility] Lymph % 40.6 % [facility] Lymphocytes Abs 2.1 0.9 - 3.2 x10(3)/[facility] Monocyte % 8.2 % [facility] Monocyte Abs 0.4 0.3 - 0.9 x10(3)/[facility] Eos % 1.5 % [facility] Eosinophils Abs 0.1 0.0 - 0.4 x10(3)/[facility] Basophil % 0.8 % [facility] Baso Absolute 0.0 0.0 - 0.1 x10(3)/[facility] Immature Gran % 0.20 % [facility] Comment: Immature granulocytes(IG's)percentage and absolute count will include metamyelocytes, myelocytes, and promyelocytes. Blood smears from CBCs yielding IG's will be scanned manually for concordance. If this scan disagrees with the automated IG or if promyelocytes are noted, a manual differential will be performed. Immature Gran Absolute 0.01 0.00 - 0.04 x10(3)/[facility] Blood 07/27/2022 2:45 AM EDT 07/27/2022 2:52 AM EDT Narrative Resulting Agency Comment Spec In Lab Jody Collins MD HEMATOLOGY ORDERABLE S Performing Organization Address City/[facility]/ZIP Co de Phone Number [facility] [place] [address] * (ABNORMAL) Hemogram (07/27/2022 2:45 AM EDT) White Blood Cell 5.3 4.0 - 9.5 x10(3)/mc L [facility] Red Blood Cell 4.27 4.00 - 5.21 x10(6)/mc L [facility] Hemoglobin 10.4(L) 11.7 - 15.5 g/dL [facility] Hematocrit 33.6(L) 35.7 - 45.8 % [facility] Mean Cell Volume 78.7(L) 82.6 - 94.4 fL [facility] Mean Cell Hemoglobin 24.4(L) 27.1 - 32.0 pg [facility] Mean Cell Hemoglobin Concentration 31.0(L) 31.7 - 35.0 g/dL [facility] Platelet 350 145 - 357 x10(3)/mc L [facility] RDW Standard Deviation 52.4(H) 37.0 - 46.0 fL [facility] RDW coefficient of variation 18.3(H) 11.5 - 14.1 % [facility] Mean Platelet Volume 9.4 7.6 - 12.9 fL [facility] NRBC% auto 0.0 % [facility] NRBC Absolute 0.000 0.000 - 0.000 x10(3)/mc L [facility] Blood 07/27/2022 2:45 AM EDT 07/27/2022 2:52 AM EDT Narrative Resulting Agency Comment Spec In Lab Jody Collins MD HEMATOLOGY ORDERABLE S [facility] [place] [address] * Lactate, whole blood, send to lab ([facility]) (07/27/2022 2:45 AM EDT) Lactate WB 1.2 0.5 - 2.2 mmol/L [facility] Blood 07/27/2022 2:45 AM EDT 07/27/2022 2:50 AM EDT Narrative Resulting Agency Comment Spec In Lab Shea Fox MD CHEMISTRY ORDERABLES Performing Organization Address [facility] Co de Phone Number [facility] [place] [address] * Magnesium (07/27/2022 2:45 AM EDT) Magnesium 0.78 0.69 - 1.07 mmol/L [facility] Blood 07/27/2022 2:45 AM EDT 07/27/2022 2:52 AM EDT Narrative Resulting Agency Comment Spec In Lab Sharron Winters MD CHEMISTRY ORDERABLES Performing Organization Address [facility] de Phone Number [facility] [place] [address] * (ABNORMAL) CRP, acute inflammation (07/27/2022 2:45 AM EDT) C-Reactive Protein 27.0(H) <=4.9 mg/L [facility] Blood 07/27/2022 2:45 AM EDT 07/27/2022 2:52 AM EDT Narrative Resulting Agency Comment Spec In Lab Jody Collins MD CHEMISTRY ORDERABLES Performing Organization Address [facility] de Phone Number [facility] [place] [address] * (ABNORMAL) Sedimentation rate (07/27/2022 2:45 AM EDT) Sedimentation Rate Automated 105(H) 2 - 37 mm/hr [facility] Comment: Effective April 06, 2019 new capillary photometric technology has resulted in a change in reference ranges. It is recommended that each ESR result be reviewed with its own age appropriate reference range. Blood 07/27/2022 2:45 AM EDT 07/27/2022 2:52 AM EDT Narrative Resulting Agency Comment Spec In Lab Jody Collins MD HEMATOLOGY ORDERABLE S Performing Organization Address [facility] Co de Phone Number [facility] [place] [address] * (ABNORMAL) Basic Metabolic Panel (non-fasting) (07/27/2022 2:45 AM EDT) Glucose 105 65 - 199 mg/dL [facility] Comment:Diabetes: >=200 mg/d L plus symptoms Blood Urea Nitrogen 12 8 - 18 mg/dL [facility] Creatinine 0.35(L) 0.70 - 1.20 mg/dL [facility] Sodium 139 135 - 145 mmol/L [facility] Potassium 4.1 3.5 - 5.0 mmol/L [facility] Comment: Please note: ??Patients with WBC >100,000 may have falsely elevated Potassium levels. ??For accurate Potassium quantification in these patients send serum separator tube (gold top) for subsequent determinations. ??Contact the Clinical Chemistry Laboratory if there are any questions. Chloride 103 98 - 107 mmol/L [facility] Carbon Dioxide 25 22 - 31 mmol/L [facility] Anion Gap 11 5 - 15 mmol/L [facility] Calcium 9.3 8.5 - 10.5 mg/dL [facility] Est Glomerular Filtration Rate 142 >=60 mL/min/1. 73 m?? [facility] Comment: This patient's estimated GFR was [...] Collins MD CHEMISTRY ORDERABLES Performing Organization Address [facility] Co de Phone Number [facility] [place] [address] * Differential, Automated (07/26/2022 4:46 AM EDT) Pathologist [facility] Neutrophil % 46.4 % [facility] Neutrophil Absolute 2.25 1.70 - 6.10 x10(3)/[facility] Lymph % 43.0 % [facility] Lymphocytes Abs 2.1 0.9 - 3.2 x10(3)/[facility] Monocyte % 8.0 % [facility] Monocyte Abs 0.4 0.3 - 0.9 x10(3)/[facility] Eos % 1.6 % [facility] Eosinophils Abs 0.1 0.0 - 0.4 x10(3)/[facility] Basophil % 0.8 % [facility] Baso Absolute 0.0 0.0 - 0.1 x10(3)/[facility] Immature Gran % 0.20 % [facility] Comment: Immature granulocytes(IG's)percentage and absolute count will include metamyelocytes, myelocytes, and promyelocytes. Blood smears from CBCs yielding IG's will be scanned manually for concordance. If this scan disagrees with the automated IG or if promyelocytes are noted, a manual differential will be performed. Immature Gran Absolute 0.01 0.00 - 0.04 x10(3)/[facility] Blood 07/26/2022 4:46 AM EDT 07/26/2022 5:23 AM EDT Narrative Resulting Agency Comment Spec In Lab Jody Collins MD HEMATOLOGY ORDERABLE S [facility] [place] [address] * (ABNORMAL) Hemogram (07/26/2022 4:46 AM EDT) Pathologist [facility] White Blood Cell 4.9 4.0 - 9.5 x10(3)/mc L [facility] Red Blood Cell 4.07 4.00 - 5.21 x10(6)/mc L [facility] Hemoglobin 10.1(L) 11.7 - 15.5 g/dL [facility] Hematocrit 31.9(L) 35.7 - 45.8 % [facility] Mean Cell Volume 78.4(L) 82.6 - 94.4 fL [facility] Mean Cell Hemoglobin 24.8(L) 27.1 - 32.0 pg [facility] Mean Cell Hemoglobin Concentration 31.7 31.7 - 35.0 g/dL [facility] Platelet 348 145 - 357 x10(3)/mc L [facility] RDW Standard Deviation 52.4(H) 37.0 - 46.0 fL [facility] RDW coefficient of variation 18.3(H) 11.5 - 14.1 % [facility] Mean Platelet Volume 9.6 7.6 - 12.9 fL [facility] NRBC% auto 0.0 % [facility] NRBC Absolute 0.000 0.000 - 0.000 x10(3)/mc L [facility] Blood 07/26/2022 4:46 AM EDT 07/26/2022 5:23 AM EDT Narrative Resulting Agency Comment Spec In Lab Jody Collins MD HEMATOLOGY ORDERABLE S Performing Organization Address City/[facility]/ZIP Co de Phone Number [facility] [place] [address] * (ABNORMAL) Sedimentation rate (07/26/2022 4:46 AM EDT) [facility] Sedimentation Rate Automated 102(H) 2 - 37 mm/hr [facility] Comment: Effective April 06, 2019 new capillary photometric technology has resulted in a change in reference ranges. It is recommended that each ESR result be reviewed with its own age appropriate reference range. Blood 07/26/2022 4:46 AM EDT 07/26/2022 5:23 AM EDT Narrative Resulting Agency Comment Spec In Lab Jody Collins MD HEMATOLOGY ORDERABLE S [facility] [place] [address] * (ABNORMAL) CRP, acute inflammation (07/26/2022 4:46 AM EDT) C-Reactive Protein 40.5(H) <=4.9 mg/L [facility] Blood 07/26/2022 4:46 AM EDT 07/26/2022 5:23 AM EDT Narrative Resulting Agency Comment Spec In Lab Jody Collins MD CHEMISTRY ORDERABLES [facility] [place] [address] * (ABNORMAL) Basic Metabolic Panel (non-fasting) (07/26/2022 4:46 AM EDT) Glucose 100 65 - 199 mg/dL [facility] Comment:Diabetes: >=200 mg/d L plus symptoms Blood Urea Nitrogen 13 8 - 18 mg/dL [facility] Creatinine 0.25(L) 0.70 - 1.20 mg/dL [facility] Sodium 139 135 - 145 mmol/L [facility] Potassium 3.8 3.5 - 5.0 mmol/L [facility] Comment: Please note: ??Patients with WBC >100,000 may have falsely elevated Potassium levels. ??For accurate Potassium quantification in these patients send serum separator tube (gold top) for subsequent determinations. ??Contact the Clinical Chemistry Laboratory if there are any questions. Chloride 103 98 - 107 mmol/L [facility] Carbon Dioxide 23 22 - 31 mmol/L [facility] Anion Gap 13 5 - 15 mmol/L [facility] Calcium 9.4 8.5 - 10.5 mg/dL [facility] Est Glomerular Filtration Rate 154 >=60 mL/min/1. 73 m?? [facility] Comment: This patient's estimated GFR was [...] Collins MD CHEMISTRY ORDERABLES Performing Organization Address [facility] Co de Phone Number [facility] [place] [address] * EKG 12 Lead (07/25/2022 12:42 PM EDT) Pathologist [facility] Ventricular rate 106 BPM MUSE SYSTEM Atrial Rate 106 BPM MUSE SYSTEM P-R Interval 120 ms MUSE SYSTEM QRS Duration 74 ms MUSE SYSTEM Q-T Interval 328 ms MUSE SYSTEM QTC Calculated (Bezet) 435 ms MUSE SYSTEM Calculated P [place] 22 degrees MUSE SYSTEM Calculated R [place] 7 degrees MUSE SYSTEM Calculated T [place] 25 degrees MUSE SYSTEM INTERPRETATION Sinus tachycardia Possible Inferior infarct (cited on or before 07-JUL-2022) Abnormal ECG When compared with ECG of 07-JUL-2022 11:44, Nonspecific T wave abnormality no longer evident in Anterior leads Confirmed by MD Chowdary Daniel ([id number]) on 08/07/2022 5:45:44 PM MUSE SYSTEM 07/25/2022 12:4 2 PM EDT 08/07/2022 5:45 PM EDT Jody Collins MD ECG ORDERABLES Performing Organization Address [facility] Co de Phone Number MUSE SYSTEM * Differential, Automated (07/25/2022 4:37 AM EDT) Pathologist [facility] Neutrophil % 54.4 % [facility] Neutrophil Absolute 2.66 1.70 - 6.10 x10(3)/[facility] Lymph % 35.0 % [facility] Lymphocytes Abs 1.7 0.9 - 3.2 x10(3)/[facility] Monocyte % 8.6 % [facility] Monocyte Abs 0.4 0.3 - 0.9 x10(3)/[facility] Eos % 1.0 % [facility] Eosinophils Abs 0.0 0.0 - 0.4 x10(3)/[facility] Basophil % 0.6 % [facility] Baso Absolute 0.0 0.0 - 0.1 x10(3)/[facility] Immature Gran % 0.40 % [facility] Comment: Immature granulocytes(IG's)percentage and absolute count will include metamyelocytes, myelocytes, and promyelocytes. Blood smears from CBCs yielding IG's will be scanned manually for concordance. If this scan disagrees with the automated IG or if promyelocytes are noted, a manual differential will be performed. Immature Gran Absolute 0.02 0.00 - 0.04 x10(3)/[facility] Blood 07/25/2022 4:37 AM EDT 07/25/2022 4:50 AM EDT Narrative Resulting Agency Comment Spec In Lab Eddi Vázquez MD HEMATOLOGY ORDERABLE S Performing Organization Address City/State/[facility] Co de Phone Number [facility] [place] [address] * (ABNORMAL) Hemogram (07/25/2022 4:37 AM EDT) White Blood Cell 4.9 4.0 - 9.5 x10(3)/mc L [facility] Red Blood Cell 4.16 4.00 - 5.21 x10(6)/mc L [facility] Hemoglobin 10.3(L) 11.7 - 15.5 g/dL [facility] Hematocrit 32.6(L) 35.7 - 45.8 % [facility] Mean Cell Volume 78.4(L) 82.6 - 94.4 fL [facility] Mean Cell Hemoglobin 24.8(L) 27.1 - 32.0 pg [facility] Mean Cell Hemoglobin Concentration 31.6(L) 31.7 - 35.0 g/dL [facility] Platelet 357 145 - 357 x10(3)/mc L [facility] RDW Standard Deviation 52.5(H) 37.0 - 46.0 fL [facility] RDW coefficient of variation 18.5(H) 11.5 - 14.1 % [facility] Mean Platelet Volume 9.6 7.6 - 12.9 fL [facility] NRBC% auto 0.0 % [facility] NRBC Absolute 0.000 0.000 - 0.000 x10(3)/mc L [facility] Blood 07/25/2022 4:37 AM EDT 07/25/2022 4:50 AM EDT Narrative Resulting Agency Comment Spec In Lab Eddi Vázquez MD HEMATOLOGY ORDERABLE S Performing Organization Address City/State/[facility] Co de Phone Number [facility] [place] [address] * (ABNORMAL) Basic Metabolic Panel (non-fasting) (07/25/2022 4:37 AM EDT) Glucose 99 65 - 199 mg/dL [facility] Comment:Diabetes: >=200 mg/d L plus symptoms Blood Urea Nitrogen 13 8 - 18 mg/dL [facility] Creatinine 0.49(L) 0.70 - 1.20 mg/dL [facility] Sodium 138 135 - 145 mmol/L [facility] Potassium 3.9 3.5 - 5.0 mmol/L [facility] Comment: Please note: ??Patients with WBC >100,000 may have falsely elevated Potassium levels. ??For accurate Potassium quantification in these patients send serum separator tube (gold top) for subsequent determinations. ??Contact the Clinical Chemistry Laboratory if there are any questions. Chloride 105 98 - 107 mmol/L [facility] Carbon Dioxide 23 22 - 31 mmol/L [facility] Anion Gap 10 5 - 15 mmol/L [facility] Calcium 8.9 8.5 - 10.5 mg/dL [facility] Est Glomerular Filtration Rate 131 >=60 mL/min/1. 73 m?? [facility] Comment: This patient's estimated GFR was [...] In Lab Eddi Vázquez MD [place] [address] * IR All Drainage Procedures (07/24/2022 4:02 PM EDT) Anatomical Region Laterality Modality X-Ray Angiograph y Impressions 07/25/2022 8:08 AM EDT Percutaneous placement of a 10 Hungarian drainage catheter into subcutaneous collection adjacent to RIGHT SI joint screw, yielding 5 mL of bloody fluid. Percutaneous placement of a 8 [place] drainage catheter into subcutaneous collection adjacent to [...] questions please contact the health acute care physician that requested your imaging first. [...] complications. IMPRESSION Percutaneous placement of a 10 [place] drainage catheter intosubcutaneous collection adjacent to RIGHT SI joint screw, yielding 5 mL of bloodyfluid. Percutaneous placement of a 8 [place] drainage catheter into subcutaneous collection adjacent to [...] have questions please contactthe health acute care physician that requested your imaging first. Ernesto Willingham MD IMG IR ORDERABLES * Anaerobic Culture (07/24/2022 3:47 PM EDT) Anaerobic Culture No anaerobic organisms isolated [facility] Fluid 07/24/2022 3:47 PM EDT 07/24/2022 4:43 PM EDT Comment:SI/L5 Narrative Resulting Agency Comment Spec In Lab Anurag Kumar MD MICROBIOLOGY - GEN ERAL ORDERABLES [facility] [place] [address] * Crystal Exam Body Fluid Other (07/24/2022 3:47 PM EDT) Crystal BF Type Other [facility] Comment: Interpret with caution due to questionable sample integrity caused by sample age. Results may be inaccurate due to presence of many degenerated cells. Crystal Exam, Fld None Seen [facility] Other 07/24/2022 3:47 PM EDT 07/24/2022 4:31 PM EDT Narrative Resulting Agency Comment Spec In Lab Anurag Kumar MD BODY FLUIDS AND ST [place] ORDERABLES [facility] [place] [address] * Cell Count Body Fluid Other (07/24/2022 3:47 PM EDT) Body Fluid Source Other [facility] Comment: Interpret with caution due to questionable sample integrity caused by sample age. Results may be inaccurate due to presence of many degenerated cells. Called by: [facility], Read back by: carlin alejo, Date/Time:07/24/22 17:51. Color, Fld Red [facility] Comment: Interpret with caution due to questionable sample integrity caused by sample age. Results may be inaccurate due to presence of many degenerated cells. Appearance, Fld Cloudy [facility] Comment: Interpret with caution due to questionable sample integrity caused by sample age. Results may be inaccurate due to presence of many degenerated cells. WBC Count, Fld Not Perf [facility] Comment: Interpret with caution due to questionable sample integrity caused by sample age. Results may be inaccurate due to presence of many degenerated cells. All body fluid results should always be interpreted in light of the total clinical presentation of the patient, including clinical history, data from additional tests and other appropriate information. Polymorphonuclear cells BF % Not Perf [facility] Comment: Interpret with caution due to questionable sample integrity caused by sample age. Results may be inaccurate due to presence of many degenerated cells. Polymorphonuclear cell percent and absolute values may contain Neutrophils, Eosinophils, and Basophils. Body fluid smear will be scanned manually for concordance. Mononuclear cells BF % Not Perf [facility] Comment: Interpret with caution due to questionable sample integrity caused by sample age. Results may be inaccurate due to presence of many degenerated cells. Mononuclear cell percent and absolute values may contain Lymphocytes and Monocytes. Body fluid smear will be scanned manually for concordance. Polymorphonuclear cells BF ABS Not Perf [facility] Comment: Interpret with caution due to questionable sample integrity caused by sample age. Results may be inaccurate due to presence of many degenerated cells. Polymorphonuclear cell percent and absolute values may contain Neutrophils, Eosinophils, and Basophils. Body fluid smear will be scanned manually for concordance. Mononuclear cells BF ABS Not Perf [facility] Comment: Interpret with caution due to [...] Anurag Kumar MD B[facility]IDS [facility] [place] [address] * Abscess/Wound Aspirate Culture Abscess; Pelvic (07/24/2022 3:47 PM EDT) Abscess/Wound Aspirate Culture No growth [facility] Gram Stain Many Neutrophils seen No microorganisms seen. [facility] Abscess [place] / Unknown 07/24/2022 3:47 PM EDT 07/24/2022 4:43 PM EDT Comment:SI/L5 Narrative Resulting Agency Comment Spec In Lab Anurag Kumar MD MICROBIOLOGY - GEN ERAL ORDERABLES Performing Organization Address City/[facility]/ZIP Co de Phone Number [facility] [place] [address] * AFB culture (07/24/2022 3:22 PM EDT) Acid Fast Bacilli Culture No Acid Fast Bacilli isolated [facility] Acid Fast Stain No Acid Fast Bacilli seen [facility] Vertebra LUMBAR SPINE STRUCTURE / Unknown 07/24/2022 3:22 PM EDT 07/27/2022 12:32 PM EDT Comment:LUMBAR ABSCESS Narrative Resulting Agency Comment Spec In Lab Jody Collins MD MICROBIOLOGY - GENER AL ORDERABLES Performing Organization Address [facility] Co de Phone Number [facility] [place] [address] * Calcofluor White Stain (07/24/2022 3:22 PM EDT) Calcofluor Stain Calcofluor White Preparation: Negative [facility] Abscess LUMBAR SPINE STRUCTURE / Unknown 07/24/2022 3:22 PM EDT 07/27/2022 12:30 PM EDT Comment:Lumbar abscess Narrative Resulting Agency Comment Spec In Lab Jody Collins MD MICROBIOLOGY - GENER AL ORDERABLES Performing Organization Address City/[facility] Co de Phone Number [facility] [place] [address] * Fungus culture (07/24/2022 3:22 PM EDT) Fungus Culture No Fungus isolated [facility] Abscess LUMBAR SPINE STRUCTURE / Unknown 07/24/2022 3:22 PM EDT 07/27/2022 12:30 PM EDT Comment:Lumbar abscess Narrative Resulting Agency Comment Spec In Lab Jody Collins MD MICROBIOLOGY - GENER AL ORDERABLES Performing Organization Address [facility] Co de Phone Number [facility] [place] [address] * Anaerobic Culture (07/24/2022 3:22 PM EDT) Anaerobic Culture No anaerobic organisms isolated [facility] Fluid 07/24/2022 3:22 PM EDT 07/24/2022 4:44 PM EDT Comment:Lumbar abscess Narrative Resulting Agency Comment Spec In Lab Mal Menchaca MD MICROBIOLOGY - GENER AL ORDERABLES Performing Organization Address [facility] Co de Phone Number [facility] [place] [address] * Body Fluid Culture, Aerobic (07/24/2022 3:22 PM EDT) Body Fluid Culture No growth [facility] Gram Stain Few Neutrophils seen No microorganisms seen. [facility] Fluid 07/24/2022 3:22 PM EDT 07/24/2022 4:44 PM EDT Comment:Lumbar abscess Narrative Resulting Agency Comment Spec In Lab Mal Menchaca MD MICROBIOLOGY - GENER AL ORDERABLES Performing Organization Address City/[facility] Co de Phone Number [facility] [place] [address] * Crystal Exam Body Fluid Other (07/24/2022 3:22 PM EDT) Crystal BF Type Other [facility] Comment: Interpret with caution due to questionable sample integrity caused by sample age. Results may be inaccurate due to presence of many degenerated cells. Crystal Exam, Fld None Seen [facility] Other 07/24/2022 3:22 PM EDT 07/24/2022 4:34 PM EDT Narrative Resulting Agency Comment Spec In Lab Ernesto Willingham MD BODY FLUIDS AND [place] ORDERABLES [facility] [place] [address] * Cell Count Body Fluid Other (07/24/2022 3:22 PM EDT) Body Fluid Source Other [facility] Comment: Interpret with caution due to questionable sample integrity caused by sample age. Results may be inaccurate due to presence of many degenerated cells. Called by: millicent, Read back by: carlin alejo, Date/Time:07/24/22 17:51. Color, Fld Red [facility] Comment: Interpret with caution due to questionable sample integrity caused by sample age. Results may be inaccurate due to presence of many degenerated cells. Appearance, Fld Cloudy [facility] Comment: Interpret with caution due to questionable sample integrity caused by sample age. Results may be inaccurate due to presence of many degenerated cells. WBC Count, Fld Not Perf [facility] Comment: Interpret with caution due to questionable sample integrity caused by sample age. Results may be inaccurate due to presence of many degenerated cells. All body fluid results should always be interpreted in light of the total clinical presentation of the patient, including clinical history, data from additional tests and other appropriate information. Polymorphonuclear cells BF % Not Perf [facility] Comment: Interpret with caution due to questionable sample integrity caused by sample age. Results may be inaccurate due to presence of many degenerated cells. Polymorphonuclear cell percent and absolute values may contain Neutrophils, Eosinophils, and Basophils. Body fluid smear will be scanned manually for concordance. Mononuclear cells BF % Not Perf [facility] Comment: Interpret with caution due to questionable sample integrity caused by sample age. Results may be inaccurate due to presence of many degenerated cells. Mononuclear cell percent and absolute values may contain Lymphocytes and Monocytes. Body fluid smear will be scanned manually for concordance. Polymorphonuclear cells BF ABS Not Perf [facility] Comment: Interpret with caution due to questionable sample integrity caused by sample age. Results may be inaccurate due to presence of many degenerated cells. Polymorphonuclear cell percent and absolute values may contain Neutrophils, Eosinophils, and Basophils. Body fluid smear will be scanned manually for concordance. Mononuclear cells BF ABS Not Perf [facility] Comment: Interpret with caution due to [...] MD BODY FLUIDS AND STOO LS ORDERABLES [facility] [place] [address] * Differential, Automated (07/24/2022 5:25 AM EDT) Neutrophil % 46.6 % [facility] Neutrophil Absolute 2.04 1.70 - 6.10 x10(3)/[facility] Lymph % 42.9 % [facility] Lymphocytes Abs 1.9 0.9 - 3.2 x10(3)/[facility] Monocyte % 8.0 % [facility] Monocyte Abs 0.4 0.3 - 0.9 x10(3)/[facility] Eos % 1.8 % [facility] Eosinophils Abs 0.1 0.0 - 0.4 x10(3)/[facility] Basophil % 0.7 % [facility] Baso Absolute 0.0 0.0 - 0.1 x10(3)/[facility] Immature Gran % 0.00 % [facility] Comment: Immature granulocytes(IG's)percentage and absolute count will include metamyelocytes, myelocytes, and promyelocytes. Blood smears from CBCs yielding IG's will be scanned manually for concordance. If this scan disagrees with the automated IG or if promyelocytes are noted, a manual differential will be performed. Immature Gran Absolute 0.00 0.00 - 0.04 x10(3)/[facility] Blood 07/24/2022 5:25 AM EDT 07/24/2022 5:57 AM EDT Narrative Resulting Agency Comment Spec In Lab Eddi Vázquez MD HEMATOLOGY ORDERABLE S [facility] [place] [address] * (ABNORMAL) Hemogram (07/24/2022 5:25 AM EDT) White Blood Cell 4.4 4.0 - 9.5 x10(3)/mc L [facility] Red Blood Cell 3.92(L) 4.00 - 5.21 x10(6)/mc L [facility] Hemoglobin 9.6(L) 11.7 - 15.5 g/dL [facility] Hematocrit 31.4(L) 35.7 - 45.8 % [facility] Mean Cell Volume 80.1(L) 82.6 - 94.4 fL [facility] Mean Cell Hemoglobin 24.5(L) 27.1 - 32.0 pg [facility] Mean Cell Hemoglobin Concentration 30.6(L) 31.7 - 35.0 g/dL [facility] Platelet 343 145 - 357 x10(3)/mc L [facility] RDW Standard Deviation 54.7(H) 37.0 - 46.0 fL [facility] RDW coefficient of variation 18.7(H) 11.5 - 14.1 % [facility] Mean Platelet Volume 9.5 7.6 - 12.9 fL [facility] NRBC% auto 0.0 % [facility] NRBC Absolute 0.000 0.000 - 0.000 x10(3)/ L [facility] Blood 07/24/2022 5:25 AM EDT 07/24/2022 5:57 AM EDT Narrative Resulting Agency Comment Spec In Lab Eddi Vázquez MD HEMATOLOGY ORDERABLE S [facility] [place] [address] * (ABNORMAL) Basic Metabolic Panel (non-fasting) (07/24/2022 5:25 AM EDT) Glucose 89 65 - 199 mg/dL [facility] Comment:Diabetes: >=200 mg/d L plus symptoms Blood Urea Nitrogen 11 8 - 18 mg/dL [facility] Creatinine 0.34(L) 0.70 - 1.20 mg/dL [facility] Sodium 138 135 - 145 mmol/L [facility] Potassium 3.9 3.5 - 5.0 mmol/L [facility] Comment: Please note: ??Patients with WBC >100,000 may have falsely elevated Potassium levels. ??For accurate Potassium quantification in these patients send serum separator tube (gold top) for subsequent determinations. ??Contact the Clinical Chemistry Laboratory if there are any questions. Chloride 104 98 - 107 mmol/L [facility] Carbon Dioxide 23 22 - 31 mmol/L [facility] Anion Gap 11 5 - 15 mmol/L [facility] Calcium 9.1 8.5 - 10.5 mg/dL [facility] Est Glomerular Filtration Rate 143 >=60 mL/min/1. 73 m?? [facility] Comment: This patient's estimated GFR was [...] In Lab Eddi Vázquez MD CHEMISTRY ORDERABLES [facility] [place] [address] * Differential, Automated (07/23/2022 3:00 AM EDT) Neutrophil % 50.7 % [facility] Neutrophil Absolute 3.15 1.70 - 6.10 x10(3)/mcL [facility] Lymph % 40.3 % [facility] Lymphocytes Abs 2.5 0.9 - 3.2 x10(3)/[facility] Monocyte % 7.2 % [facility] Monocyte Abs 0.4 0.3 - 0.9 x10(3)/[facility] Eos % 1.1 % [facility] Eosinophils Abs 0.1 0.0 - 0.4 x10(3)/[facility] Basophil % 0.5 % [facility] Baso Absolute 0.0 0.0 - 0.1 x10(3)/[facility] Immature Gran % 0.20 % [facility] Comment: Immature granulocytes(IG's)percentage and absolute count will include metamyelocytes, myelocytes, and promyelocytes. Blood smears from CBCs yielding IG's will be scanned manually for concordance. If this scan disagrees with the automated IG or if promyelocytes are noted, a manual differential will be performed. Immature Gran Absolute 0.01 0.00 - 0.04 x10(3)/[facility] Blood 07/23/2022 3:00 AM EDT 07/23/2022 3:02 AM EDT Narrative Resulting Agency Comment Spec In Lab Eddi Vázquez MD HEMATOLOGY ORDERABLE S Performing Organization Address City/State/[facility] Co de Phone Number [facility] [place] [address] * (ABNORMAL) Hemogram (07/23/2022 3:00 AM EDT) White Blood Cell 6.2 4.0 - 9.5 x10(3)/mc L [facility] Red Blood Cell 4.19 4.00 - 5.21 x10(6)/mc L [facility] Hemoglobin 10.5(L) 11.7 - 15.5 g/dL [facility] Hematocrit 32.7(L) 35.7 - 45.8 % [facility] Mean Cell Volume 78.0(L) 82.6 - 94.4 fL [facility] Mean Cell Hemoglobin 25.1(L) 27.1 - 32.0 pg [facility] Mean Cell Hemoglobin Concentration 32.1 31.7 - 35.0 g/dL [facility] Platelet 364(H) 145 - 357 x10(3)/mc L [facility] RDW Standard Deviation 53.3(H) 37.0 - 46.0 fL [facility] RDW coefficient of variation 18.6(H) 11.5 - 14.1 % [facility] Mean Platelet Volume 9.0 7.6 - 12.9 fL [facility] NRBC% auto 0.0 % [facility] NRBC Absolute 0.000 0.000 - 0.000 x10(3)/mc L [facility] Blood 07/23/2022 3:00 AM EDT 07/23/2022 3:02 AM EDT Narrative Resulting Agency Comment Spec In Lab Eddi Vázquez MD HEMATOLOGY ORDERABLE S [facility] [place] [address] * (ABNORMAL) Basic Metabolic Panel (non-fasting) (07/23/2022 3:00 AM EDT) Glucose 101 65 - 199 mg/dL [facility] Comment:Diabetes: >=200 mg/d L plus symptoms Blood Urea Nitrogen 9 8 - 18 mg/dL [facility] Creatinine 0.31(L) 0.70 - 1.20 mg/dL [facility] Sodium 141 135 - 145 mmol/L [facility] Potassium 3.6 3.5 - 5.0 mmol/L [facility] Comment: Please note: ??Patients with WBC >100,000 may have falsely elevated Potassium levels. ??For accurate Potassium quantification in these patients send serum separator tube (gold top) for subsequent determinations. ??Contact the Clinical Chemistry Laboratory if there are any questions. Chloride 105 98 - 107 mmol/L [facility] Carbon Dioxide 23 22 - 31 mmol/L [facility] Anion Gap 13 5 - 15 mmol/L [facility] Calcium 8.9 8.5 - 10.5 mg/dL [facility] Est Glomerular Filtration Rate 146 >=60 mL/min/1. 73 m?? [facility] Comment: This patient's estimated GFR [...] Vázquez MD CHEMISTRY ORDERABLES Performing Organization Address [facility] Co de Phone Number [facility] [place] [address] * Blood culture (07/22/2022 10:47 PM EDT) Blood Culture No growth at 5 days. [facility] Blood VENOUS CATHETER / Unknown 07/22/2022 10:47 PM EDT 07/22/2022 10:48 PM EDT Comment:add-on Narrative Resulting Agency Comment Spec In Lab Samuel Comer MD MICROBIOLOGY - BLOOD ORDERABLES Performing Organization Address [facility] Co de Phone Number [facility] [place] [address] * Anaerobic Culture (07/22/2022 9:30 PM EDT) Anaerobic Culture No anaerobic organisms isolated [facility] Fluid 07/22/2022 9:30 PM EDT 07/22/2022 9:45 PM EDT Narrative Resulting Agency Comment Spec In Lab Samuel Comer MD MICROBIOLOGY - GENER AL ORDERABLES Performing Organization Address [facility] Co de Phone Number [facility] [place] [address] * Body Fluid Culture, Aerobic (07/22/2022 9:30 PM EDT) Body Fluid Culture No growth to date. [facility] Gram Stain Many Neutrophils seen No microorganisms seen. [facility] Fluid 07/22/2022 9:30 PM EDT 07/22/2022 9:45 PM EDT Narrative Resulting Agency Comment Spec In Lab Samuel Comer MD MICROBIOLOGY - GENER AL ORDERABLES Performing Organization Address [facility] Co de Phone Number [facility] [place] [address] * Cell Count Body Fluid Other (07/22/2022 9:30 PM EDT) Body Fluid Source Other [facility] Color, Fld Red [facility] Appearance, Fld Clotted [facility] WBC Count, Fld Clotted [facility] Comment: Called by: CHARLEY, Read back by: Yarelis Galdamez, Date/Time:07/22/22 21:56. All body fluid results should always be interpreted in light of the total clinical presentation of the patient, including clinical history, data from additional tests and other appropriate information. Polymorphonuclear cells BF % Clotted % [facility] Comment: Polymorphonuclear cell percent and absolute values may contain Neutrophils, Eosinophils, and Basophils. Body fluid smear will be scanned manually for concordance. Mononuclear cells BF % Clotted % [facility] Comment: Mononuclear cell percent and absolute values may contain Lymphocytes and Monocytes. Body fluid smear will be scanned manually for concordance. Polymorphonuclear cells BF ABS Clotted /[facility] Comment: Polymorphonuclear cell percent and absolute values may contain Neutrophils, Eosinophils, and Basophils. Body fluid smear will be scanned manually for concordance. Mononuclear cells BF ABS Clotted /[facility] Comment: Mononuclear cell percent and absolute values may contain Lymphocytes and Monocytes. Body fluid smear will be scanned manually for concordance. Other 07/22/2022 9:30 PM EDT 07/22/2022 9:38 PM EDT Narrative Resulting Agency Comment Spec In Lab Alek Tavares MD BODY FLUIDS AND STOO LS ORDERABLES Performing Organization Address City/[facility]/ZIP Co de Phone Number [facility] [place] [address] * Blood culture (07/22/2022 9:15 PM EDT) Blood Culture No growth at 5 days. [facility] Blood 07/22/2022 9:15 PM EDT 07/22/2022 9:29 PM EDT Comment:L AC Narrative Resulting Agency Comment Spec In Lab Alek Tavares MD MICROBIOLOGY - BLOOD ORDERABLES [facility] [place] [address] * CT Lumbar Spine w Contrast (07/22/2022 [...] questions please contact the health acute care physician that requested your imaging first. ? Narrative 07/22/2022 8:03 PM EDT EXAMINATION: CT [...] have questions please contactthe health acute care physician that requested your imaging first. Marie Telles MD IMG CT ORDERABLES * Differential, Automated (07/22/2022 7:12 PM EDT) Neutrophil % 53.7 % [facility] Neutrophil Absolute 3.01 1.70 - 6.10 x10(3)/[facility] Lymph % 37.4 % [facility] Lymphocytes Abs 2.1 0.9 - 3.2 x10(3)/[facility] Monocyte % 6.2 % [facility] Monocyte Abs 0.4 0.3 - 0.9 x10(3)/[facility] Eos % 1.4 % [facility] Eosinophils Abs 0.1 0.0 - 0.4 x10(3)/[facility] Basophil % 1.1 % [facility] Baso Absolute 0.1 0.0 - 0.1 x10(3)/[facility] Immature Gran % 0.20 % [facility] Comment: Immature granulocytes(IG's)percentage and absolute count will include metamyelocytes, myelocytes, and promyelocytes. Blood smears from CBCs yielding IG's will be scanned manually for concordance. If this scan disagrees with the automated IG or if promyelocytes are noted, a manual differential will be performed. Immature Gran Absolute 0.01 0.00 - 0.04 x10(3)/mcL [facility] Blood 07/22/2022 7:12 PM EDT 07/22/2022 7:21 PM EDT Narrative Resulting Agency Comment Spec In Lab Phyllis SIMMS HEMATOLOGY ORDERABLE S [facility] [place] [address] * (ABNORMAL) Hemogram (07/22/2022 7:12 PM EDT) White Blood Cell 5.6 4.0 - 9.5 x10(3)/mc L [facility] Red Blood Cell 4.58 4.00 - 5.21 x10(6)/mc L [facility] Hemoglobin 11.2(L) 11.7 - 15.5 g/dL [facility] Hematocrit 36.2 35.7 - 45.8 % [facility] Mean Cell Volume 79.0(L) 82.6 - 94.4 fL [facility] Mean Cell Hemoglobin 24.5(L) 27.1 - 32.0 pg [facility] Mean Cell Hemoglobin Concentration 30.9(L) 31.7 - 35.0 g/dL [facility] Platelet 449(H) 145 - 357 x10(3)/mc L [facility] RDW Standard Deviation 52.9(H) 37.0 - 46.0 fL [facility] RDW coefficient of variation 18.3(H) 11.5 - 14.1 % [facility] Mean Platelet Volume 9.2 7.6 - 12.9 fL [facility] NRBC% auto 0.0 % [facility] NRBC Absolute 0.000 0.000 - 0.000 x10(3)/mc L [facility] Blood 07/22/2022 7:12 PM EDT 07/22/2022 7:21 PM EDT Narrative Resulting Agency Comment Spec In Lab Phyllis SIMMS HEMATOLOGY ORDERABLE S [facility] [place] [address] * (ABNORMAL) CRP, acute inflammation (07/22/2022 7:12 PM EDT) C-Reactive Protein 48.9(H) <=4.9 mg/L [facility] Blood 07/22/2022 7:12 PM EDT 07/22/2022 7:21 PM EDT Narrative Resulting Agency Comment Spec In Lab Amarilis Carcamo DO CHEMISTRY O RDERABLES [facility] [place] [address] * (ABNORMAL) Sedimentation rate (07/22/2022 7:12 PM EDT) Sedimentation Rate Automated >119(H) 2 - 37 mm/hr [facility] Comment: Effective April 06, 2019 new capillary photometric technology has resulted in a change in reference ranges. It is recommended that each ESR result be reviewed with its own age appropriate reference range. Blood 07/22/2022 7:12 PM EDT 07/22/2022 7:21 PM EDT Narrative Resulting Agency Comment Spec In Lab Amarilis Carcamo DO HEMATOLOGY ORDERABLES Performing Organization Address City/[facility]/ZIP Co de Phone Number [facility] [place] [address] * (ABNORMAL) Basic Metabolic Panel (non-fasting) (07/22/2022 7:12 PM EDT) Glucose 99 65 - 199 mg/dL [facility] Comment:Diabetes: >=200 mg/d L plus symptoms Blood Urea Nitrogen 10 8 - 18 mg/dL [facility] Creatinine 0.34(L) 0.70 - 1.20 mg/dL [facility] Sodium 139 135 - 145 mmol/L [facility] Potassium 3.8 3.5 - 5.0 mmol/L [facility] Comment: Please note: ??Patients with WBC >100,000 may have falsely elevated Potassium levels. ??For accurate Potassium quantification in these patients send serum separator tube (gold top) for subsequent determinations. ??Contact the Clinical Chemistry Laboratory if there are any questions. Chloride 103 98 - 107 mmol/L [facility] Carbon Dioxide 26 22 - 31 mmol/L [facility] Anion Gap 10 5 - 15 mmol/L [facility] Calcium 9.4 8.5 - 10.5 mg/dL [facility] Est Glomerular Filtration Rate 143 >=60 mL/min/1. 73 m?? [facility] Comment: This patient's estimated GFR was [...] In Lab Marie Telles MD CHEMISTRY ORDERABLES [facility] [place] [address] documented in this encounter Visit Diagnoses Diagnosis [...] 1 dose, On Thu07/23/22 at 0648 New 07/23/2022 6:48 AM EDT lactated Ringers 1,000 [...] Routine 08 (Given - Provider: Frankie Hair RN)2028 (Given [...] 08 (Given - Provider: Frankie Hair RN) 0857 (Given - Provider: Jimbo Willams RN) 0818 (Given - Provider: Jimbo Willams RN) lidocaine (Lidoderm) 5% patch 1 patch 1 patch, Transdermal, Administer over 12 Hours, DAILY, First dose on Thu07/29/22 at 0900, Until Discontinued, Apply patch(es) for 12 hours, and then remove for 12 hours. Apply near drains, Routine 0820 (Patch Applied - Provider: Frankie Hair RN)2019 [...] Routine 0819 (Given - Provider: Frankie Hair RN) 08 (Given - Provider: Jimbo Willams RN) 0900 (Not Given - Provider: Jimbo Willams RN - Reason: Patient/family refused) senna (Senokot) tablet 17.2 mg 17.2 mg, Oral, NIGHTLY, First dose on Thu07/22/22 at 2207, Until Discontinued, Routine 2029 (Given - Provider: Paige Gonzalez RN) 2105 (Given - Provider: Yandy Masters RN) senna-docusate (Pericolace) 8.6-50 mg per tablet 2 tablet 2 tablet, Oral, 2 TIMES DAILY, First dose on Thu07/22/22 at 2206, Until Discontinued, Routine 0819 (Given - Provider: Frankie Hair RN)2029 (Given - Provider: Paige Gonzalez RN) 08 (Given - Provider: Jimbo Willams RN)2105 (Given - Provider: Yandy Masters RN) 0900 [...] documented as of this encounter Care Teams Eap Consultant Relationship Specialty Start Date End Date Lorna Bal APRN [address] [place] [address] PCP - General Family Medicine 05/27/18 documented as of this encounter
--- OUTSIDE RECORDS SUMMARY | 2023-12-04 12:39 | XMS_ITS | Encounter Summary ---
[place] [address] Care Team Providers Care Silica Filter Operator Name Role Phone Emelyn Easley MD Primary Care Provider Reason for Referral * Diagnostic Test (Routine) - Closed Specialty Diagnoses / Procedures Referred By Contac t Referred To Contact Radiology Diagnoses Traumatic brain injury, without LOC, sequela Acquired dysplasia of hip, unspecified laterality Spasticity Neuromuscular scoliosis of lumbar region Procedures NM Whole Body Bone Scan Vanda Carter PA [facility] [place] [address] [place] [address] Referral ID Status Reason Start Date Expiration Date V isits Requested Visits Authorized [id number] Closed Specialty Service Requested 11/24/2016 11/24/2017 1 1 Reason for Visit * Diagnostic Test (Routine) - Closed Specialty Diagnoses / Procedures Referred By Contac t Referred To Contact Radiology Diagnoses Traumatic brain injury, without LOC, sequela Acquired dysplasia of hip, unspecified laterality Spasticity Neuromuscular scoliosis of lumbar region Procedures NM Whole Body Bone Scan Vanda Carter PA [facility] [place] [address] [facility] [place] [address] Referral ID Status Reason Start Date Expiration Date V isits Requested Visits Authorized [id number] Closed Specialty Service Requested 11/24/2016 11/24/2017 1 1 Encounter Details Date Type Department Care Team (Latest Contact Info) Description 12/10/2016 10:57 AM EDT - 12/10/2016 1:59 PM EDT Hospital Encounter [place] [address] Josse Mckee MD [facility] [place] [address] Traumatic brain injury, without LOC, [...] PM EST Office [place] [address] Hollie Ambriz MD [facility] [place] [address] documented as of this encounter Procedures Procedure [...] mCi documented in this encounter Care Teams Silica Filter Operator Relationship Specialty Start Date End Date Emelyn Easley MD [address] [place] [id number] PCP - General Family Medicine 08/26/16 05/26/18 documented as of this encounter
--- OUTSIDE RECORDS SUMMARY | 2023-12-04 12:39 | XMS_ITS | Encounter Summary ---
Author Organization [facility] [place] [address] Care Team Providers Care Clothes Presser Name Role Phone Emelyn Easley MD Primary Care Provider [phone] Reason for Visit * Auth/Cert Specialty Diagnoses / Procedures Referred By Contac t Referred To Contact Diagnoses TBI, W/O LOC, SEQUEIA/ACQUIRED DYSPLASIA OF HIP Procedures PRO ANESTH, CAT/MRI SCAN, RADIATN THERAPY BONE SCAN Referral ID Status Reason Start Date Expiration Date Visits Re quested Visits Authorized [id number] 1 1 Encounter Details Date Type Department Care Team (Latest Contact Info) Description 12/30/2016 10:57 AM EDT - 12/30/2016 4:52 PM EDT Hospital Encounter Same Day Program at [facility] [address] Janna Strickland MD 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 I paged at 12:17; person answering says [...] PM EST Office [place] [address] Hollie Ambriz MD [facility] [place] [address] documented as of this encounter Procedures Procedure Name Priority Date/Time Associated Diagnosis Comments BONE SCAN 12/30/2016 11:00 PM EDT TBI, W/O LOC, SEQUEIA/ACQUIRED DYSPLASIA OF HIP documented in this encounter Visit Diagnoses Not on filedocumented in this encounter Care Teams Clothes Presser Relationship Specialty Start Date End Date Emelyn Easley MD [address] [place] [address] PCP - General Family Medicine 08/26/16 05/26/18 documented as of this encounter
--- OUTSIDE RECORDS SUMMARY | 2023-12-04 12:39 | XMS_ITS | Encounter Summary ---
Author Organization [facility] Address [facility] [place] [address] Care Team Providers Care Clearance Cutter Name Role Phone Emelyn Easley MD Primary Care Provider [phone] Reason for Referral * Physical Therapy (Routine) - Closed Specialty Diagnoses / Procedures Referred By Contac t Referred To Contact Diagnoses Traumatic brain injury, without LOC, sequela Acquired dysplasia of hip, unspecified laterality Spasticity Neuromuscular scoliosis of lumbar region Vanda Carter PA [facility] [place] [address] Unknown None Referral ID Status Reason Start Date Expiration Date V isits Requested Visits Authorized [id number] Closed Evaluate and Treat 11/24/2016 05/23/2017 12 12 * Diagnostic Test (Routine) - Closed Specialty Diagnoses / Procedures Referred By Contac t Referred To Contact Radiology Diagnoses Traumatic brain injury, without LOC, sequela Acquired dysplasia of hip, unspecified laterality Spasticity Neuromuscular scoliosis of lumbar region Procedures NM Whole Body Bone Scan Vanda Carter PA [facility] [place] [address] [place] [address] Referral ID Status Reason Start Date Expiration Date V isits Requested Visits Authorized [id number] Closed Specialty Service Requested 11/24/2016 11/24/2017 1 1 Reason for Visit * Consultation (Routine) - Closed Specialty Diagnoses / Procedures Referred By Contac t Referred To Contact Orthopaedics Diagnoses leg pain,chronic, right Emelyn Easley MD [address] [place] [address] [facility] [address] [place] [id number] Referral ID Status Reason Start Date Expiration Date V isits Requested Visits Authorized [id number] Closed Consult, Test & Treat Connection Center 08/26/2016 08/26/2017 1 1 Encounter Details Date Type Department Care Team (Late st Contact Info) Description 11/24/2016 1:00 PM EDT Office [place] [address] Josse Mckee MD [facility] [place] [address] Traumatic brain injury, without LOC, sequela; Acquired [...] NAME: Tana Cavazos AGE: 21 y.o.. MR#: [id number] ? DATE OF VISIT: 11/24/2016 ? STAFF: [...] EST Office [place] [address] Hollie Ambriz MD [facility] [place] [address] Scheduled Referrals Name Type Priority Associated Diagnoses [...] pelvis cannot be evaluated. Josse Mckee MD [facility] [place] ORDERABLES documented in this encounter Visit [...] scoliosis documented in this encounter Care Teams Clearance Cutter Relationship Specialty Start Date End Date Emelyn Easley MD [address] [place] [address] PCP - General Family Medicine 08/26/16 05/26/18 documented as of this encounter
--- OUTSIDE RECORDS SUMMARY | 2023-12-04 12:39 | XMS_ITS | Encounter Summary ---
Author Organization [facility] Address [facility] [place] [address] Care Team Providers Care Security Associate Name Role Phone Emelyn Easley MD Primary Care Provider [phone] Reason for Visit * Reason Comments Follow Up Surgery Bilateral Girdle sto ne procedure Encounter Details Date Type Department Care Team (Late st Contact Info) Description 03/06/2017 11:40 AM EST [place] [address] Josse Mckee MD [facility] [address] [place] [address] Acquired dysplasia of hip, unspecified laterality; Traumatic [...] NAME: Tana Cavazos AGE: 21 y.o.. MR#: [id number] ? DATE OF VISIT: 03/06/2017 ? STAFF: [...] at that time, done with physiatry at [facility]. Dr. Mckee gave them his card today and they will call if they would like to schedule these injections. Otherwise, they can follow up in 1 year with X-rays of the hips and spine. documented in this encounter Plan of Treatment Upcoming Encounters Date Type Department Care Team (Late st Contact Info) Description 06/02/2024 12:30 PM EST Office [place] [address] Hollie Ambriz MD [facility] [place] [address] documented as of this encounter Visit Diagnoses Diagnosis Acquired dysplasia of hip, unspecified laterality Traumatic brain injury, without loss of consciousness, sequela documented in this encounter Care Teams Security Associate Relationship Specialty Start Date End Date Emelyn Easley MD [address] [place] [address] PCP - General Family Medicine 08/26/16 05/26/18 documented as of this encounter
--- OUTSIDE RECORDS SUMMARY | 2023-12-04 12:39 | XMS_ITS | Encounter Summary ---
[place] [address] Care Team Providers Care Salt Operator Name Role Phone Lorna Bal APRN Primary Care Provider [phone] Encounter Details Date Type Department Care Team (Late st Contact Info) Description 06/19/2022 Telephone [place] [address] Gurdeep Simmons MD [facility] [place] [address] Social History Tobacco Use Types Packs/Day Years [...] PSF (03/20/09), prior bilateral girdlestones (2010 Dr. aRmirez). She was brought to her PCP 4 days ago for evaluation of cellulitis on her back and was subsequently started on Keflex and has had improvement in the cellulitis. Tana was brought to the ED today byher cranberry grower as there was some concern for having perceived pain her back (patient is non-verbal).Per report, examination by providers at [facility] do not demonstrate evidence of pain, with [...] The patient was evaluated by orthopaedics at [facility] (Dr. Weiss) who did not recommend [...] were answered. Gurdeep Simmons MD Orthopaedic Surgery 4302 documented in this encounter Plan of Treatment Upcoming Encounters Date Type Department Care Team (Late st Contact Info) Description 06/02/2024 12:30 PM EST Office Visit [place] [address] Hollie Ambriz MD [facility] [place] [address] documented as of this encounter Visit Diagnoses Not on filedocumented in this encounter Care Teams Salt Operator Relationship Specialty Start Date End Date Lorna Bal APRN [address] [place] [address] PCP - General Family Medicine 05/27/18 documented as of this encounter
--- OUTSIDE RECORDS SUMMARY | 2023-12-04 12:39 | XMS_ITS | Encounter Summary ---
Author Organization [facility] Address [facility] [place] [address] Care Team Providers Care Superintendent Geophysical Laboratory Name Role Phone Lorna Bal APRN Primary Care Provider [phone] Reason for Visit * Reason Comments Follow-up * Consultation (Routine) - Specialty Diagnoses / Procedures Referred By Karlo duarte Referred To Contact Dermatology Diagnoses Disorder of the skin and subcutaneous tissue, unspecified Lorna Bal APRN [address] [place] [address] [facility] Dermat[facility] [address] [place] [address] Referral ID Status Reason Start Date Expiration Date V isits Requested Visits Authorized [id number] Consult, Test & Treat Connection Center PCP Updated and/or Approved 10/10/2019 10/09/2020 12 12 Encounter Details Date Type Department Care Team (Late st Contact Info) Description 10/31/2019 10:40 AM EDT Office Visit Dermatology at [facility] [address] [place] [address] Deanna Norton MD [facility] [address] [address] [employer] Social History Tobacco Use [...] y.o. female. Established pt here with her care connector Nely. She has a creaseon the left [...] [Transparent Dressings] Itching and Dermatitis Please use [id number] CURRENT MEDICATIONS: Current Outpatient Medications Medication Sig [...] documentation. Deanna Norton MD Section of Dermatology [facility] documented in this encounter Plan of Treatment Upcoming Encounters Date Type Department Care Team (Late st Contact Info) Description 06/02/2024 12:30 PM EST Office [place] [address] Hollie Ambriz MD [facility] [place] [address] documented as of this encounter Visit Diagnoses Diagnosis Inter[facility] Other specified erythematous condition documented in this encounter Care Teams Superintendent Geophysical Laboratory Relationship Specialty Start Date End Date Lorna Bal APRN [address] [place] [address] PCP - General Family Medicine 05/27/18 documented as of this encounter
--- OUTSIDE RECORDS SUMMARY | 2023-12-04 12:39 | XMS_ITS | Encounter Summary ---
Author Organization [facility] [place] [address] Care Team Providers Care Shovel Loader Operator Name Role Phone Lorna Bal APRN Primary Care Provider [phone] Encounter Details Date Type Department Care Team (Late st Contact Info) Description 06/19/2022 4:45 PM EST Ancillary Procedure [place] [address] Joe Harrison MD [facility] [place] [address] Social History Tobacco Use Types Packs/Day Years [...] PM EST Office [place] [address] Hollie Ambriz MD [facility] [place] [address] documented as of this encounter Procedures Procedure Name Priority Date/Time Associated Diagnosis Comments FILM LIBRARY STORAGE ONLY ULTRASOUND STUDY Routine 06/19/2022 4:40 PM EST documented in this encounter Results * Film Library- Storage Only Ultrasound Study (06/19/2022 4:40 PM EST) Narrative [facility] - 06/19/2022 4:40 PM EST This exam is auto-finalizing. It's purpose is for storage only. Joe Harrison MD G FILM LIBRARY ORD ERABLES [place], [place] documented in this encounter Visit Diagnoses Not on filedocumented in this encounter Care Teams Shovel Loader Operator Relationship Specialty Start Date End Date Lorna Bal APRN [address] [place] [address] PCP - General Family Medicine 05/27/18 documented as of this encounter
--- OUTSIDE RECORDS SUMMARY | 2023-12-04 12:39 | XMS_ITS | Encounter Summary ---
Author Organization [facility] Address [facility] [place] [address] Care Team Providers Care Adult Daycare Coordinator Name Role Phone Emelyn Easley MD Primary Care Provider [phone] Encounter Details Date Type Department Care Team (Latest Contact Info) Description 11/24/2016 12:04 PM EDT - 11/24/2016 11:59 PM EDT Hospital Encounter XRay at [address] [place] [address] Josse Mckee MD [facility] [place] [address] Acquired dysplasia of hip, unspecified laterality Discharge [...] PM EST Office Visit [place] [address] Hollie Ambriz MD [facility] [place] [address] documented as of this encounter Procedures Procedure [...] laterality documented in this encounter Care Teams Adult Daycare Coordinator Relationship Specialty Start Date End Date Emelyn Easley MD [address] [place] [address] PCP - General Family Medicine 08/26/16 05/26/18 documented as of this encounter
--- OUTSIDE RECORDS SUMMARY | 2023-12-04 12:39 | XMS_ITS | Encounter Summary ---
Author Organization [facility] [place] [address] Care Team Providers Care Packing And Final Assembly Supervisor Name Role Phone Lorna Bal APRN Primary Care Provider [phone] Encounter Details Date Type Department Care Team (Late st Contact Info) Description 06/17/2022 Ancillary Procedure [place] [address] Joe Harrison MD [facility] [place] [address] Social History Tobacco Use Types Packs/Day Years [...] PM EST Office Visit [place] [address] Hollie Ambriz MD [facility] [place] [address] documented as of this encounter Procedures Procedure Name Priority Date/Time Associated Diagnosis Comments FILM LIBRARY STORAGE ONLY DX SPINE Routine 06/17/2022 12:00 AM EST documented in this encounter Results * Film Library- Storage Only DX Spine (06/17/2022 12:00 AM EST) Narrative [facility] - 06/19/2022 4:36 PM EST This exam is auto-finalizing. It's purpose is for storage only. Joe Harrison MD IMG FILM LIBRARY ORD ERABLES [place], [place] documented in this encounter Visit Diagnoses Not on filedocumented in this encounter Care Teams Packing And Final Assembly Supervisor Relationship Specialty Start Date End Date Lorna Bal APRN [address] [place] [address] PCP - General Family Medicine 05/27/18 documented as of this encounter
--- OUTSIDE RECORDS SUMMARY | 2023-12-04 12:39 | XMS_ITS | Encounter Summary ---
Author Organization [facility] Address [facility] [place] [address] Care Team Providers Care Plant Superintendent Name Role Phone Lorna Bal APRN Primary Care Provider [phone] Encounter Details Date Type Department Care Team (Late st Contact Info) Description 06/30/2022 Orders [place] [address] Sergey Keane MD [facility] [place] [address] Spinal abscess Social History Tobacco Use Types [...] PM EST Office Visit [place] [address] Hollie Ambriz MD [facility] [place] [address] documented as of this encounter Visit Diagnoses [...] documented as of this encounter Care Teams Plant Superintendent Relationship Specialty Start Date End Date Lorna Bal APRN [address] [place] [address] PCP - General Family Medicine 05/27/18 documented as of this encounter
--- OUTSIDE RECORDS SUMMARY | 2023-12-04 12:39 | XMS_ITS | Encounter Summary ---
Author Organization [facility] Address [facility] [place] [address] Care Team Providers Care Traffic Safety Administrator Name Role Phone Lorna Bal APRN Primary Care Provider [phone] Reason for Visit * Auth/Cert Specialty Diagnoses [...] Expiration Date Visits Re quested Visits Authorized [id number] 1 1 Encounter Details Date Type Department Care Team (Late st Contact Info) Description 06/14/2018 9:12 AM EST Anesthesia Event [place] [address] Ty Amin MD [facility] [place] [address] Andrade Baldwin MD [facility] [place] [address] Anesthesia Record Procedure Summary Procedure Name Responsible [...] 06/14/18; 0917; other (see comments) (right saphenous); ithc-apc-sotjbl catheter system; 22 gauge; Dr. Amin; 1; no longer indicated, removed per policy/procedure, catheter/device intact; 06/14/18; 1218 06/14/18 0917 by Laxmi Fowler, PROGRAM DIR 06/14/18 1218 by Jessica Silva, EUNICE ETT Mask Ventilation: Ea sy (1); ETT Type: Cuffed, Nasal, KRISH; ETT Size: 7 mm; Mac Blade: 3; Notes: Asleep, Pre-O2; Attempts: 1; Laryngoscopy Grade: 1; ETT Placement Verified By: Auscultation, Capnometry, Visual; Secured at Teeth: 21 cm; Inserted by: Dr. Amin; Removal Date: 06/14/18; Removal Time: 1106 06/14/18 0924 by Laxmi Fowler, PROGRAM DIR 06/14/18 1106 by Laxmi Fowler, PROGRAM DIR Incision 06/14/18; 0937; gum; 12/23/21 (LDA cleanup [...] Amin MD - 06/14/2018 11:39 AM EST [facility] [place] Department of Anesthesiology Post-procedure Note Patient: Tana Cavazos Procedure Summary Date: 06/14/18 Room / Location: [facility] [place] [address] [place] [address] Anesthesia Start: 911 Anesthesia Stop: 1117 Procedures: SURGICAL EXTRACTIONS, REMOVAL OF IMPACTED TOOTH, COMPLETELY BONY (WRVU 1.93) (N/A ) SURGICAL EXTRACTIONS REQUIRING ELEVATION OF MUCOPERIOSTEAL FLAP AND REMOVAL OF BONE OR SECTION OF TOOTH (WRVU 1.09) (N/A ) Diagnosis: (impacted wisdom teeth) Surgeon: Keith Cotton MD Responsible Provider: Ty Amin MD Anesthesia Type: general ASA Status: 3 All Anesthesia Providers: Anesthesiologist: Ty Amni MD PROGRAM DIR: Laxmi Fowler CRNA Vitals Value Taken Time BP 128/58 06/14/2018 12:00 PM Temp 36.1 ??C (97 ??F) 06/14/2018 11:15 AM Pulse 95 06/14/2018 11:30 AM Resp 20 06/14/2018 12:00 PM SpO2 97 % 06/14/2018 12:00 PM Pain Level 1 06/14/2018 12:00 PM Patient Location: PACU/[facility] Level of Consciousness: Awake and Alert [...] BOTH LEGS performed by BARRERA OLIVER at [facility] OR ? ? PRO I&D, POST SPINE, LUMB/SACR/LUMBOSAC N/A 05/20/2014 @I & D, OPEN, DEEP ABSCESS, LUMBAR, SACRAL, LUMBOSACRAL performed by Freddy Isbell MD at [facility] OR ? ? PRO I&D, POST SPINE, LUMB/SACR/LUMBOSAC N/A 05/26/2014 @I & D, OPEN, DEEP ABSCESS, LUMBAR, SACRAL, LUMBOSACRAL performed by Freddy Isbell MD at [facility] OR ??? PRO OSTEOTOMY FEMUR SHAFT/SUPRACONDY 08/15/2010 ??OSTEOTOMY, FEMUR SHAFT OR SUPRACONDYLAR W/O FIXATION performed by BARRERA OLIVER at [facility] OR ??? PRO RECONSTRUC HIP SOCKET, RESEC FEM HEAD 08/15/2010 ??ACETABULOPLASTY (GIRDLESTONE), RESECTION FEMORAL HEAD, BILATERAL performed by BARRERA OLIVER [facility] OR ??? PRO REMOVAL DEEP IMPLANT 08/15/2010 REMOVAL IMPLANT, DEEP, BRUNO performed by BARRERA OLIVER at [facility] OR ??? PRO REMOVE INFUSN DEVICE/PUMP N/A 05/11/2014 REMOVAL OF SPINE INFUSION PUMP performed by Jamaal Samuel MD at [facility] OR ??? PRO REMOVE SPINAL CANAL CATHETER N/A 05/11/2014 REMOVAL OF INTRATHECAL OR EPIDURAL CATHETER performed by Jamaal Samuel MD at [facility] MA[facility] OR ??? PRO REPR, DURAL/CSF LEAK, NOT REQ LAMINECTOMY N/A 05/20/2014 @REPAIR DURAL\CSF LEAK,NOT REQUIRING LAMINECTOMY performed by Freddy Isbell MD at [facility] MA[facility] OR Social History Tobacco Use ??? Smoking status: Never Smoker ??? Smokeless tobacco: Never Used ??? Tobacco comment: NO SMOKERS IN THE HOME Substance Use Topics ??? Alcohol use: No Social History Substance and Sexual Activity Drug Use No Allergies Allergen Reactions ??? Fluoxetine Other (See Comments) HIVES, HEART RACES ??? Tegaderm [Transparent Dressings] Itching and Dermatitis Please use [id number] Medications: MAR and/or home medications have been [...] PM EST Office Visit [place] [address] Hollie Ambriz MD [facility] [place] [address] documented as of this encounter Visit Diagnoses [...] EST documented in this encounter Care Teams Traffic Safety Administrator Relationship Specialty Start Date End Date Lorna Bal APRN [address] [place] [address] PCP - General Family Medicine 05/27/18 documented as of this encounter
--- OUTSIDE RECORDS SUMMARY | 2023-12-04 12:39 | XMS_ITS | Encounter Summary ---
Author Organization [facility] [place] [address] Care Team Providers Care Ed Teacher Name Role Phone Emelyn Easley MD Primary Care Provider [phone] Reason for Visit * Auth/Cert Specialty Diagnoses / Procedures Referred By Contac t Referred To Contact Diagnoses TBI, W/O LOC, SEQUEIA/ACQUIRED DYSPLASIA OF HIP Procedures PRO ANESTH, CAT/MRI SCAN, RADIATN THERAPY BONE SCAN Referral ID Status Reason Start Date Expiration Date Visits Re quested Visits Authorized [id number] 1 1 Encounter Details Date Type Department Care Team (Latest Contact Info) Description 12/30/2016 2:57 PM EDT - 12/30/2016 11:59 PM EDT Hospital Encounter [place] [address] Josse Mckee MD [facility] [place] [address] Discharge Disposition: Home Social History Tobacco Use [...] PM EST Office [place] [address] Hollie Ambriz MD [facility] [place] [address] documented as of this encounter Procedures Procedure [...] on filedocumented in this encounter Care Teams Ed Teacher Relationship Specialty Start Date End Date Emelyn Easley MD [address] [place] [address] PCP - General Family Medicine 08/26/16 05/26/18 documented as of this encounter
--- OUTSIDE RECORDS SUMMARY | 2023-12-04 12:39 | XMS_ITS | Encounter Summary ---
[place] [address] Care Team Providers Care Joinery Machinist Name Role Phone Emelyn Easley MD Primary Care Provider [phone] Reason for Visit * Auth/Cert Specialty Diagnoses / Procedures Referred By Contac t Referred To Contact Diagnoses TBI, W/O LOC, SEQUEIA/ACQUIRED DYSPLASIA OF HIP Procedures PRO ANESTH, CAT/MRI SCAN, RADIATN THERAPY BONE SCAN Referral ID Status Reason Start Date Expiration Date Visits Re quested Visits Authorized [id number] 1 1 Encounter Details Date Type Department Care Team (Late st Contact Info) Description 12/30/2016 3:00 PM EDT - 12/30/2016 4:28 [place] [address] RESOURCE, ANESTHESIA-KRISTIN None BONE SCAN Social History [...] 11:40; without success they called for another chemist enzymes. I paged at 12:17; person answering says [...] PM EST Office [place] [address] Hollie Ambriz MD [facility] [place] [address] documented as of this encounter Procedures Procedure Name Priority Date/Time Associated Diagnosis Comments BONE SCAN 12/30/2016 11:00 PM EDT TBI, W/O LOC, SEQUEIA/ACQUIRED DYSPLASIA OF HIP documented in this encounter Visit Diagnoses Not on filedocumented in this encounter Care Teams Joinery Machinist Relationship Specialty Start Date End Date Emelyn Easley MD [address] [place] [address] PCP - General Family Medicine 08/26/16 05/26/18 documented as of this encounter
--- OUTSIDE RECORDS SUMMARY | 2023-12-04 12:39 | XMS_ITS | Encounter Summary ---
Author Organization [facility] Address [facility] [place] [address] Care Team Providers Care Court Interpreter Name Role Phone Lorna Bal APRN Primary Care Provider [phone] Reason for Visit * Auth/Cert Specialty Diagnoses [...] Expiration Date Visits Re quested Visits Authorized [id number] 1 1 Encounter Details Date Type Department Care Team (Late st Contact Info) Description 06/14/2018 8:34 AM EST - 06/14/2018 12:20 PM EST Hospital Encounter [place] [address] Keith Cotton MD [facility] [place] [address] Discharge Disposition: Home Social History Tobacco Use [...] closest emergency room or call the hospital deep submergence vehicle operator at [phone] and ask for physician software developer consultant covering for your physician. Questions or problems after 5pm or on a weekend: Call the [facility] deep submergence vehicle operator at and ask for the physician software developer consultant covering for your doctor. * Patient Instructions* Keith Cotton MD - 06/14/2018 9:09 AM EST On [...] may be helpful. Most swelling will occur [id number] hours following the procedure. Mouth Rinse: Vigorous [...] can be reached during office hours at [phone]. If you have questions atnight or on weekends, Dr. Cotton can be reached at [phone]. documented in this encounter Medications at Time [...] in this encounter H&P Notes * Keith Cotton MD - 06/14/2018 8:58 AM EST Patient Name: Tana Cavazos Patient Age: 22 y.o. Birthdate: 1995 Admit date: 06/14/2018 Attending Physician: Keith Cotton MD INTERVAL H&P CC: impacted and carious [...] BOTH LEGS performed by BARRERA OLIVER at [facility] MA[facility] OR ? ? PRO I&D, POST SPINE, LUMB/SACR/LUMBOSAC N/A 05/20/2014 @I & D, OPEN, DEEP ABSCESS, LUMBAR, SACRAL, LUMBOSACRAL performed by Freddy Isbell MD at [facility] MA[facility] OR ? ? PRO I&D, POST SPINE, LUMB/SACR/LUMBOSAC N/A 05/26/2014 @I & D, OPEN, DEEP ABSCESS, LUMBAR, SACRAL, LUMBOSACRAL performed by Freddy Isbell MD at [facility] MA[facility] OR ??? PRO OSTEOTOMY FEMUR SHAFT/SUPRACONDY 08/15/2010 ??OSTEOTOMY, FEMUR SHAFT OR SUPRACONDYLAR W/O FIXATION performed by BARRERA OLIVER at [facility] MA[facility] OR ??? PRO RECONSTRUC HIP SOCKET, RESEC FEM HEAD 08/15/2010 ??ACETABULOPLASTY (GIRDLESTONE), RESECTION FEMORAL HEAD, BILATERAL performed by BARRERA OLIVER [facility] OR ??? PRO REMOVAL DEEP IMPLANT 08/15/2010 REMOVAL IMPLANT, DEEP, BRUNO performed by BARRERA OLIVER at [facility] MA[facility] OR ??? PRO REMOVE INFUSN DEVICE/PUMP [...] MD at [facility] OR Allergies Allergen Reactions ??? Fluoxetine Other (See Comments) HIVES, HEART RACES ??? Tegaderm [Transparent Dressings] Itching and Dermatitis Please use [id number] No current facility-administered medications on file prior [...] TOOTH (WRVU 1.09) No flowsheet data found. [place] PDMP QUERY DATE: 06/14/18 Risk Assessment Category: [...] scanning to chart. No future appointments. Keith Cotton DMD, MD linux consultant documented in this encounter Miscellaneous Notes * Op Note - Keith Cotton MD - 06/14/2018 11:06 AM EST [facility] Note Patient Name: Tana Cavazos : [id number] MR#: [id number] Case Date: 06/14/2018 Surgeon: Surgeon(s) and Role: * Keith Cotton MD - Primary Preoperative diagnosis: impacted wisdom [...] and draped in the standard fashion for floral merchandiser. The oral cavity was suctioned and an [...] tooth #32. Mucoperiosteum was reflected laterally andthe Kamicat drill was used to remove bone overlying [...] without the involvement of a resident. KEITH COTTON MD 06/14/2018 documented in this encounter Plan of Treatment Upcoming Encounters Date Type Department Care Team (Late st Contact Info) Description 06/02/2024 12:30 PM EST Office [place] [address] Hollie Ambriz MD [facility] [place] [address] documented as of this encounter Procedures Procedure [...] Routine 1100 (Given - Provid er: Keith Cotton MD) fentaNYL (PF) 50mcg/mL injection 12.5-25 mcg, [...] (Intra-Procedure) 1020 (Given - Provid er: Keith Cotton MD - Comment: On field for surgeon's use as needed) hydrocortisone 1 % ointment (CANCELED) ONCE PRN, Starting on Thu06/14/18 at 1006, Until Thu06/14/18 at 1420, Intra-Operative (Intra-Procedure) 1006 (Given - Provid er: Keith Cotton MD - Comment: applied to lips) ibuprofen [...] Routine 1006 (Given - Provid er: Keith Cotton MD) sodium chloride 0.9 % flush 5-20 mL 5-20 mL, Intravenous, EVERY 1 MIN PRN, Starting on Thu06/14/18 at 0839, Until Thu06/14/18 at 1420, flush, Flush pertains to all indwelling lines. Flush per protocol found in the job aid using the link provided on this medication record., Day of Surgery (Day of Procedure), Routine documented in this encounter Care Teams Court Interpreter Relationship Specialty Start Date End Date Lorna Bal APRN [address] [place] [address] PCP - General Family Medicine 05/27/18 documented as of this encounter
--- OUTSIDE RECORDS SUMMARY | 2023-12-04 12:39 | XMS_ITS | Encounter Summary ---
Author Organization [facility] [place] [address] Care Team Providers Care Cable Layer Name Role Phone Emelyn Easley MD Primary Care Provider [phone] Reason for Referral * Diagnostic Test (Routine) - Closed Specialty Diagnoses / Procedures Referred By Contac t Referred To Contact Radiology Diagnoses Traumatic brain injury, without LOC, sequela Acquired dysplasia of hip, unspecified laterality Procedures NM Whole Body Bone Scan Vanda Carter, [place] [address] [facility] [place] [address] Referral ID Status Reason Start Date Expiration Date V isits Requested Visits Authorized [id number] Closed Specialty Service Requested 12/16/2016 12/16/2017 2 2 Reason for Visit * Auth/Cert Specialty Diagnoses / Procedures Referred By Contac t Referred To Contact Diagnoses TBI, W/O LOC, SEQUEIA/ACQUIRED DYSPLASIA OF HIP Procedures PRO ANESTH, CAT/MRI SCAN, RADIATN THERAPY BONE SCAN Referral ID Status Reason Start Date Expiration Date Visits Re quested Visits Authorized [id number] 1 1 Encounter Details Date Type Department Care Team (Latest Contact Info) Description 12/30/2016 12:00 PM EDT - 12/30/2016 2:56 PM EDT Hospital Encounter [place] [address] Josse Mckee MD [facility] [place] [address] Traumatic brain injury, without LOC, sequela; Acquired [...] EST Office Visit [place] [address] Hollie Ambriz MD [facility] [place] [address] documented as of this encounter Procedures Procedure [...] spine. ??The kidneys are unremarkable. Procedure Note nAgelica Taylor MD - 12/30/2016 EXAMINATION: NM WHOLE [...] mCi documented in this encounter Care Teams Cable Layer Relationship Specialty Start Date End Date Emelyn Easley MD [address] [place] [address] PCP - General Family Medicine 08/26/16 05/26/18 documented as of this encounter
--- OUTSIDE RECORDS SUMMARY | 2023-12-04 12:39 | XMS_ITS | Encounter Summary ---
Author [place] [address] Care Team Providers Care Cobbler Apprentice Name Role Phone Emelyn Easley MD Primary Care Provider [phone] Reason for Visit * Reason Onset Date Comments Appointment 12/10/2016 Encounter Details Date Type Department Care Team (Late st Contact Info) Description 12/10/2016 Telephone [place] [address] Josse Mckee MD [address] [place] [address] Appointment Social History Tobacco Use Types Packs/Day [...] PM EST Office [place] [address] Hollie Ambriz MD [facility] INFECTIOUS [place] [address] documented as of this encounter Visit Diagnoses Diagnosis Acquired dysplasia of hip, 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
--- OUTSIDE RECORDS SUMMARY | 2023-12-04 12:39 | XMS_ITS | Encounter Summary ---
Author Organization [facility]1983 Address [facility] [place] [address] Care Team Providers Care Fire Marshal Refinery Name Role Phone Emelyn Easley MD Primary Care Provider [phone] Encounter Details Date Type Department Care Team (Latest Contact Info) Description 11/24/2016 12:03 PM EDT Hospital Encounter XRay at [address] [place] [address] Josse Mckee MD [facility] [place] [address] Neuromuscular scoliosis of lumbar region Discharge Disposition: [...] PM EST Office Visit Infectious Disease at [place] [address] Hollie Ambriz MD [facility] DR INFECTI[place] [address] documented as of this encounter Procedures Procedure [...] scoliosis documented in this encounter Care Teams Fire Marshal Refinery Relationship Specialty Start Date End Date Emelyn Easley MD [address] [place] [address] PCP - General Family Medicine 08/26/16 05/26/18 documented as of this encounter
--- OUTSIDE RECORDS SUMMARY | 2023-12-04 12:39 | XMS_ITS | Encounter Summary ---
Author Organization [facility] Address [facility] [place] [address] Care Team Providers Care Master Yacht Name Role Phone Lorna Bal APRN Primary Care Provider [phone] Encounter Details Date Type Department Care Team (Late st Contact Info) Description 07/08/2022 Orders Only [place] [address] Jamaal Estrada MD [facility] [place] [address] Spinal abscess; Bacteremia; E coli infection; Soft tissue abscess; Muscle abscess Social History Tobacco Use Types Packs/Day Years Used Date Smoking Tobacco: Never Smokeless Tobacco: Never Comments:NO SMOKERS IN THE H OME Alcohol Use Standard Drinks/Week Comments No 0 (1 standard drink = 0.6 oz pur e alcohol) [facility] Inpatient Questions Answer Date Recorded [...] PM EST Office Visit [place] [address] Hollie Ambriz MD [facility] DR [place] [address] documented as of this encounter Visit Diagnoses [...] documented as of this encounter Care Teams Master Yacht Relationship Specialty Start Date End Date Lorna Bal, [place] [address] [place] [address] PCP - General Family Medicine 05/27/18 documented as of this encounter
--- OUTSIDE RECORDS SUMMARY | 2023-12-04 12:39 | XMS_ITS | Encounter Summary ---
Author Organization [facility] [place] [address] Care Team Providers Care Office Equipment Technician Name Role Phone Emelyn Easley MD Primary Care Provider [phone] Reason for Visit * Reason Onset Date Comments Appointment 02/05/2017 Encounter Details Date Type Department Care Team (Late st Contact Info) Description 02/05/2017 Tele[place] [address] Sarah Shah APRN [facility] [place] [address] Appointment Social History Tobacco Use Types Packs/Day [...] Office [place] [address] Hollie Ambriz MD [facility] [place] [address] documented as of this encounter Visit Diagnoses Not on filedocumented in this encounter Care Teams Office Equipment Technician Relationship Specialty Start Date End Date Emelyn Easley MD [address] [place] [address] PCP - General Family Medicine 08/26/16 05/26/18 documented as of this encounter
--- OUTSIDE RECORDS SUMMARY | 2023-12-04 12:39 | XMS_ITS | Encounter Summary ---
[place] [address] Care Team Providers Care Piping Design Specialist Name Role Phone Lorna Bal APRN Primary Care Provider [phone] Encounter Details Date Type Department Care Team (Latest Contact Info) Description 07/04/2022 Travel Social History Tobacco Use Types Packs/Day Years Used Date Smoking Tobacco: Never Smokeless Tobacco: Never Comments:NO SMOKERS IN THE H OME Alcohol Use Standard Drinks/Week Comments No 0 (1 standard drink = 0.6 oz pur e alcohol) [facility] Inpatient Questions Answer Date Recorded [...] PM EST Office [place] [phone] Hollie Ambriz MD [facility] [place] [address] documented as of this encounter Visit Diagnoses Not on filedocumented in this encounter Additional Health Concerns Infection Onset Date Last Indicated Resolved Time Parainfluenza Virus 06/28/2022 06/28/2022 07/10/19 23 8:09 PM EDT documented as of this encounter Care Teams Piping Design Specialist Relationship Specialty Start Date End Date Lorna Bal APRN [address] [place] [address] PCP - General Family Medicine 05/27/18 documented as of this encounter
--- OUTSIDE RECORDS SUMMARY | 2023-12-04 12:39 | XMS_ITS | Encounter Summary ---
Author Organization [facility] Address [facility] [place] [address] Care Team Providers Care Fork Lift Truck Operator Name Role Phone Lorna Bal APRN Primary Care Provider [phone] Reason for Visit * Consultation (Routine) - Closed Specialty Diagnoses / Procedures Referred By Contact Referred To Contact Maxillofacial Surgery Diagnoses wisdom teeth extraction no images Yas Conner, [place] [address] Keith Cotton MD [facility] ORAL AND [place]ILLOF[place] [address] Referral ID Status Reason Start Date Expiration Date Visits Re quested Visits Authorized [id number] Closed 03/20/2018 03/20/2019 1 1 Encounter Details Date Type Department Care Team (Late st Contact Info) Description 05/27/2018 11:00 AM EST Office Visit [place] [address] Keith Cotton MD [facility] ORAL [place] [address] Impacted teeth Social History Tobacco Use Types [...] who is referred to us by at [facility] for consultation regarding wisdom teeth dental [...] [Transparent Dressings] Itching and Dermatitis Please use [id number] ROS with attention to cardiac, pulmonary, hepatic, [...] PM EST Office [place] [address] Hollie Ambriz MD [facility] DR [place] [address] documented as of this encounter Visit Diagnoses Diagnosis Impacted teeth documented in this encounter Care Teams Fork Lift Truck Operator Relationship Specialty Start Date End Date Lorna Bal APRN [address] [place] [address] PCP - General Family Medicine 05/27/18 documented as of this encounter
--- OUTSIDE RECORDS SUMMARY | 2023-12-04 12:39 | XMS_ITS | Encounter Summary ---
Author Organization [facility] Address [facility] [place] [address] Care Team Providers Care Workplace Trainer And Assessor Name Role Phone Lorna Bal APRN Primary Care Provider [phone] Reason for Visit * Auth/Cert Specialty Diagnoses [...] Expiration Date Visits Re quested Visits Authorized [id number] 1 1 Encounter Details Date Type Department Care Team (Late st Contact Info) Description 06/14/2018 9:45 AM EST - 06/14/2018 11:30 AM EST Surgery [place] [address] Keith Cotton MD [facility] ORAL AND [place] [address] SURGICAL EXTRACTIONS, REMOVAL OF IMPACTED TOOTH, COMPLETELY [...] closest emergency room or call the hospital hat stock laminating machine operator at [phone] and ask for physician special weapons and tactics officer covering for your physician. Questions or problems after 5pm or on a weekend: Call the [facility] hat stock laminating machine operator at and ask for the physician special weapons and tactics officer covering for your doctor. * Patient Instructions* [...] may be helpful. Most swelling will occur [id number] hours following the procedure. Mouth Rinse: Vigorous [...] can be reached during office hours at [phone]. If you have questions atnight or on weekends, Dr. Cotton can be reached at [phone]. documented in this encounter Medications at Time [...] [facility] MAIN OR ? ? PRO I&D, POST SPINE, LUMB/SACR/LUMBOSAC N/A 05/20/2014 @I & D, OPEN, DEEP ABSCESS, LUMBAR, SACRAL, LUMBOSACRAL performed by Freddy Isbell MD at [facility] MAIN OR ? ? PRO I&D, POST SPINE, LUMB/SACR/LUMBOSAC N/A 05/26/2014 @I & D, OPEN, DEEP ABSCESS, LUMBAR, SACRAL, LUMBOSACRAL performed by Freddy Isbell MD at [facility] MAIN OR ??? PRO OSTEOTOMY FEMUR SHAFT/SUPRACONDY 08/15/2010 ??OSTEOTOMY, FEMUR SHAFT OR SUPRACONDYLAR W/O FIXATION performed by BARRERA OLIVER at [facility] OR ??? PRO RECONSTRUC HIP SOCKET, RESEC FEM HEAD 08/15/2010 ??ACETABULOPLASTY (GIRDLESTONE), RESECTION FEMORAL HEAD, BILATERAL performed by BARRERA OLIVER [facility] OR ??? PRO REMOVAL DEEP IMPLANT 08/15/2010 REMOVAL IMPLANT, DEEP, BRUNO performed by BARRERA OLIVER at [facility] OR ??? PRO REMOVE INFUSN DEVICE/PUMP N/A 05/11/2014 REMOVAL OF SPINE INFUSION PUMP performed by Jamaal Samuel MD at [facility] MAIN OR ??? PRO REMOVE SPINAL CANAL CATHETER N/A 05/11/2014 REMOVAL OF INTRATHECAL OR EPIDURAL CATHETER performed by Jamaal Samuel MD at [facility] OR ??? PRO REPR, DURAL/CSF LEAK, NOT REQ LAMINECTOMY N/A 05/20/2014 @REPAIR DURAL\CSF LEAK,NOT REQUIRING LAMINECTOMY performed by Freddy Isbell MD at [facility] OR Allergies Allergen Reactions ??? Fluoxetine Other (See Comments) HIVES, HEART RACES ??? Tegaderm [Transparent Dressings] Itching and Dermatitis Please use [id number] No current facility-administered medications on file prior [...] TOOTH (WRVU 1.09) No flowsheet data found. [place] PDMP QUERY DATE: 06/14/18 Risk Assessment Category: [...] No future appointments. Keith Cotton DMD, MD auto bumper straightener documented in this encounter Miscellaneous Notes * Op Note - Keith Cotton MD - 06/14/2018 11:06 AM EST [facility] [place] Patient Name: Tana Cavazos : [id number] MR#: [id number] Case Date: 06/14/2018 Surgeon: Surgeon(s) and Role: [...] and draped in the standard fashion for senior behavioral scientist. The oral cavity was suctioned and an [...] tooth #32. Mucoperiosteum was reflected laterally andthe ActBlue drill was used to remove bone overlying [...] PM EST Office Visit Infectious Disease at [facility] [place] [address] Hollie Ambriz MD [facility] [address] [place] [address] documented as of this encounter Procedures Procedure [...] Routine documented in this encounter Care Teams Workplace Trainer And Assessor Relationship Specialty Start Date End Date Lorna Bal APRN [address] [place] [address] PCP - General Family Medicine 05/27/18 documented as of this encounter
--- OUTSIDE RECORDS SUMMARY | 2023-12-04 12:39 | XMS_ITS | Encounter Summary ---
[place] [address] Care Team Providers Care Nanny Babysitter Name Role Phone Emelyn Easley MD Primary Care Provider [phone] Reason for Visit * Auth/Cert Specialty Diagnoses / Procedures Referred By Karlo duarte Referred To Contact Diagnoses TBI, W/O LOC, SEQUEIA/ACQUIRED DYSPLASIA OF HIP Procedures PRO ANESTH, CAT/MRI SCAN, RADIATN THERAPY BONE SCAN Referral ID Status Reason Start Date Expiration Date Visits Re quested Visits Authorized [id number] 1 1 Encounter Details Date Type Department Care Team (Late st Contact Info) Description 12/30/2016 3:23 [place] [address] Gaby Cantu MD [facility] [place] [address] Sidney Lawson MD [facility] [place] [address] Anesthesia Record Procedure Summary Procedure Name Responsible [...] tolerated well; 12/30/16; 165112/30/16 1322 by Ramiro Aedn LPN 12/30/16 1652 by Dana Antonio RN [...] Lawson MD - 12/30/2016 4:27 PM EDT [facility] [place]esthesiology Post-procedure Note Patient: Tana Cavazos Procedure Summary Date Anesthesia Start Anesthesia Stop Room / Location 12/30/16 1523 1608 [facility] ADULT RADIOLOGY / [facility] Procedure Diagnosis Surgeon Responsible Provider BONE SCAN (N/A ) (TBI, W/O LOC, SEQUEIA/ACQUIRED DYSPLASIA OF HIP) RESOURCE, ANESTHESIA-Gaby Hallman MD All Anesthesia Providers: Anesthesiologist: Gaby Cantu MD Car Salesperson: Sidney Lawson MD Last (1hr) Vitals: BP (!) 80/50 (12/30/16 1608) Temp 36.2 ??C (97.2 ??F) (12/30/16 1608) Pulse 93 (12/30/16 1608) Resp 16 (12/30/16 1608) SpO2 97 % (12/30/16 1608) Patient Location: PACU/[facility] Level of Consciousness: Awake and Alert [...] performed by BARRERA OLIVER at [facility] OR ? ? PRO I&D, POST SPINE, LUMB/SACR/LUMBOSAC N/A 05/20/2014 @I & D, OPEN, DEEP ABSCESS, LUMBAR, SACRAL, LUMBOSACRAL performed by Freddy Isbell MD at [facility] OR ? ? PRO I&D, POST SPINE, LUMB/SACR/LUMBOSAC N/A 05/26/2014 @I & D, OPEN, DEEP ABSCESS, LUMBAR, SACRAL, LUMBOSACRAL performed by Freddy Isbell MD at [facility] OR ??? PRO OSTEOTOMY FEMUR SHAFT/SUPRACONDY 08/15/2010 ??OSTEOTOMY, FEMUR SHAFT OR SUPRACONDYLAR W/O FIXATION performed by BARRERA OLIVER at [facility] OR ??? PRO RECONSTRUC HIP SOCKET, RESEC FEM HEAD 08/15/2010 ??ACETABULOPLASTY (GIRDLESTONE), RESECTION FEMORAL HEAD, BILATERAL performed by BARRERA OLIVER [facility] OR ??? PRO REMOVAL DEEP IMPLANT 08/15/2010 REMOVAL IMPLANT, DEEP, BRUNO performed by BARRERA OLIVER at [facility] OR ??? PRO REMOVE INFUSN DEVICE/PUMP N/A 05/11/2014 REMOVAL OF SPINE INFUSION PUMP performed by Jamaal Samuel MD at [facility] OR ??? PRO REMOVE SPINAL CANAL CATHETER N/A 05/11/2014 REMOVAL OF INTRATHECAL OR EPIDURAL CATHETER performed by Jamaal Samuel MD at [facility] MAIN OR ??? PRO REPR, DURAL/CSF LEAK, NOT REQ LAMINECTOMY N/A 05/20/2014 @REPAIR DURAL\CSF LEAK,NOT REQUIRING LAMINECTOMY performed by Freddy Isbell MD at [facility] MAIN OR Social History Substance Use Topics ??? Smoking status: Never Smoker ??? Smokeless tobacco: Never Used Comment: NO SMOKERS IN THE HOME ??? Alcohol use No History Drug Use No Allergies Allergen Reactions ??? Fluoxetine Other (See Comments) HIVES, HEART RACES ??? Tegaderm [Transparent Dressings] Itching and Dermatitis Please use [id number] Medications: MAR and/or home medications have been [...] PM EST Office [place] [address] Hollie Ambriz MD [facility] [place] [address] documented as of this encounter Visit Diagnoses [...] mL/hr documented in this encounter Care Teams Nanny Babysitter Relationship Specialty Start Date End Date Emelyn Easley MD [address] [place] [id number] PCP - General Family Medicine 08/26/16 05/26/18 documented as of this encounter
--- OUTSIDE RECORDS SUMMARY | 2023-12-04 12:39 | XMS_ITS | Encounter Summary ---
Author Organization [facility] [place] [address] Care Team Providers Care Department Clinician Name Role Phone Lorna Bal APRN Primary Care Provider [phone] Encounter Details Date Type Department Care Team [...] PM EST Office Visit [place] [address] Hollie Ambriz MD [facility] [place] [address] documented as of this encounter Visit Diagnoses Not on filedocumented in this encounter Care Teams Department Clinician Relationship Specialty Start Date End Date Lorna Bal APRN [address] [place] [address] PCP - General Family Medicine 05/27/18 documented as of this encounter
--- OUTSIDE RECORDS SUMMARY | 2023-12-04 12:39 | XMS_ITS | Encounter Summary ---
Author Organization [facility] [place] [address] Care Team Providers Care Health Claims Examiner Name Role Phone Lorna Bal APRN Primary Care Provider [phone] Reason for Referral * Home Health Care (Routine) - Closed Specialty Diagnoses / Procedures Referred By Contac t Referred To Contact Diagnoses [place] [address] [facility] [address] [address] Referral ID Status Reason Start Date Expiration Date V isits Requested Visits Authorized [id number] Closed Consult, Test & Treat 07/09/2022 01/05/2023 999 999 Reason for Visit * Reason Comments Surgical Post Op * Auth/Cert (Routine) Specialty Diagnoses / Procedures Referred By Contac t Referred To Contact Diagnoses Spinal abscess Procedures EMERGENCY GABI Eddi Vázquez [place] [address] [facility] Referral ID Status Reason Start Date Expiration Date Visits Re quested Visits Authorized [id number] 1 1 Encounter Details Date Type Department Care Team (Latest Contact Info) Description 06/24/2022 2:05 PM EST - 07/09/2022 10:29 AM EDT Hospital Encounter Medical Specialites Unit Level 1 [place] [id number] Eddi Váz[place] [address] [place] [address] [place] [address] [place] [address] [place] [address] Spinal abscess; Tachycardia; Bacteremia Discharge Disposition: Home [...] please contact your inpatient physician through the [facility] Can Runner . Issues afterhours and on weekends will [...] however on 06/17 she was brought to [facility] by her bioinformatics analyst for possibly increased back pain and received [...] who have questions please contact the health early breastfeeding care specialist that requested your imaging first. All [...] than 25 cc. Fluoroscopy time: Please see [facility] IR technologist record for procedural dose/time. Cefazolin/ [...] The tract was dilated, and an 8 Nigerien drain was advanced over the wire into [...] aspiration demonstrated shiraz pus, and an 8 Nigerien drain was placed using ultrasound guidance as [...] maximal sterile barrier technique was used throughout. Terminal Superintendent fluoroscopic images were obtained. Contrast was injected [...] who have questions please contact the health early breastfeeding care specialist that requested your imaging first. Lumbar [...] who have questions please contact the health early breastfeeding care specialist that requested your imaging first. All Drainage Procedures (Exam End: 07/04/2022 4:14 PM) Narrative Preoperative Diagnosis: re accumulated Lumbar collection by CT, Fevers Postoperative Diagnosis: Same Procedure Performed: Ultrasound and fluoroscopically guided drain placement. Operators: Mich Martino MD, Attending Estimated Blood Loss: Negligible. Fluoroscopy dose: Please see [facility] IR technologist record for procedural dose/time. Cefazolin/ [...] dilated over the wire and a 8.5 Nigerien drain was advanced over the wire into [...] who have questions please contact the health early breastfeeding care specialist that requested your imaging first. Site Check In Recovery Room (Exam End: 07/08/2022 10:29 AM) Narrative This exam is auto-finalizing. No interpretation was done. Pending Studies and Lab Data: None Discharge Conditions/Prognosis: Stable Discharge to: Home Updated Allergies/ADRs: Allergies Allergen Reactions ??? Fluoxetine Other (See Comments) HIVES, HEART RACES ??? Tegaderm [Transparent Dressings] Itching and Dermatitis Please use [id number] ??? Penicillins Immunizations Given this Hospitalization: Immunization History Administered Date(s) Administered ??? Influenza Vaccine (Novel) [id number], Injectable 02/25/2009 ??? Influenza Vaccine w/Preservative, Split [...] back. The number for Infectious Disease is [phone] if you have questions or do not [...] Bal PCP Office Your Inpatient Doctor(s) at [facility]: Dr. Ana Guerrero [facility] Medicine Dr. Hills and Dr. Jefferson - Infectious Disease. General Instructions [facility] Vascular and Interventional Radiology Discharge [...] is during regular office hours, please call [phone]. If it is after regular office hours, or on weekends or holidays, please call [phone] and ask to speak to the Raw Cheese Worker trauma surgeon for Interventional Radiology. You have received medication [...] PM Lilli Joy APRN Infectious Disease at [facility] Arrive at: Home [phone] Please do not come in for this visit. Your provider will call you at the number you provided. 08/13/2022 11:30 AM Sergey Keane MD Infectious Disease at [facility] Arrive at: Search Developer Area [phone] Future Orders Complete By Expires IR Drain Check/Change/Remove [[id number] Custom] 07/20/2022 08/06/2022 Process Instructions: Scheduling Instructions: Questions: Where will study be performed?: [facility] Radiology Reason for exam and [...] Tana Shelton for admission to Home Health. [address] [place] [address] Date of : 1995 Inpatient DOCUMENTATION FOR VNA SERVICES (INCLUDING THOSE PATIENTS WITH MEDICARE COVERAGE REQUIRING HOME VNA SERVICES AND/OR HOSPICE SERVICES) PATIENT'S LOCATION: Tana Shelton [address] [facility] [address] Cell: Telephone Information: Toe Former Stitchdowns's Name: Mother/Guardian Anderson [phone] In discussion with the attending physician, it is certified that this patient is under their care and that they, or a Nurse Practitioner,Clinical Nurse specialist or Physician Patent Drafter who is working directly with them, had [...] Jefferson, Dr Samuel HOME HEALTH CARE AGENCY: [facility]. [address] [place] [address] Start of care: Anticipated start of care 24-48 hours after discharge Please note that any additional orders needs or changes will need to be obtained from this patient's PCP: Lorna Bal APRN [address] [facility] [address] All VNA agencies which cover the area of patient's residence have been reviewed, either verbally fatoumata writing, and patient/family have chosen the home health care agency noted ' Questions: Disciplines Requested: Nursing Discharge References/Attachments None documented in this encounter Discharge Instructions * Discharge Instructions* Hollie Perez MD - 06/25/2022 5:20 AM EST [facility] Vascular and Interventional Radiology Discharge [...] is during regular office hours, please call [phone]. If it is after regular office hours, or on weekends or holidays, please call [phone] and ask to speak to the Raw Cheese Worker trauma surgeon for Interventional Radiology. You have received medication [...] back. The number for Infectious Disease is [phone] if you have questions or do not [...] Bal PCP Office Your Inpatient Doctor(s) at [facility]: Dr. Perez - Hospital Medicine Dr. Hills [...] spent >30 minutes (Day of Discharge Code 13708) involved in the final examination of the [...] then cefepime vanc for 3 days at [facility] and discharged on cefpodoxime, referred to [...] of care, communication with family Full code GEOSPATIAL DEVELOPER, nutrition recommendations, diet regular Anticipated Disposition, PT/OT recommendations Home tomorrow Team Pager ( Coverage 17/11) [phone] PCP Lorna Bal APRN Attestation IPI Certification I certify that I am a D-H credentialed attending provider with admitting privileges and that the patient meets or has met medical necessity to require an inpatient IPI level of care meeting a minimumof two midnights or is on the [facility] inpatient only procedure list (status C) due [...] contractures, no edema LABS: Recent Labs 07/08/22 0507/07/2234007/06/22 1840 07/05/22 0531 WBC 5.3 3.8* -- [...] future testing is required, contact the Microbiology Application Performance Engineer. * No growth at 1 day. [...] who have questions please contact the health early breastfeeding care specialist that requested your imaging first. Chest [...] who have questions please contact the health early breastfeeding care specialist that requested your imaging first. Lumbar [...] who have questions please contact the health early breastfeeding care specialist that requested your imaging first. Abdomen [...] who have questions please contact the health early breastfeeding care specialist that requested your imaging first. * Chrissie Lee PA - 07/08/2022 10:34 [...] of care, communication with family Full code GEOSPATIAL DEVELOPER, nutrition recommendations, diet regular Anticipated Disposition, PT/OT recommendations Home in next 1-2 days Team Pager ( Coverage 17/11) [phone] PCP Lorna Bal APRN Attestation IPI Certification I certify that I am a D-H credentialed attending provider with admitting privileges and that the patient meets or has met medical necessity to require an inpatient IPI level of care meeting a minimumof two midnights or is on the [facility] inpatient only procedure list (status C) due [...] 2021 07/03/22 2245 07/03/22 2305 07/06/22 0621 BLOODCX No growth at 5 days. No growth at 5 days. No growth at 5 days. No growth at 3 days. Escherichia coli detected by PCR Isolate saved. If future testing is required, contact the Microbiology Application Performance Engineer. * No growth at 1 day. [...] who have questions please contact the health early breastfeeding care specialist that requested your imaging first. Chest [...] who have questions please contact the health early breastfeeding care specialist that requested your imaging first. Lumbar [...] who have questions please contact the health early breastfeeding care specialist that requested your imaging first. Abdomen [...] who have questions please contact the health early breastfeeding care specialist that requested your imaging first. * Sergey Keane MD - 07/07/2022 4:02 PM EDT Images from the original note were not included. DEPARTMENT OF INFECTIOUS DISEASE & [facility] INFECTIOUS DISEASE PROGRESS NOTE Reason for follow up: E coli bacteremia, Spinal collections, gluteal abscess Subjective:Case discussed during rounds with ID team and the attending Dr. Samuel Patient is seen and examined at bedside. home health aide caregiver at bedside, refers she is lethargic with [...] Sergey Doan MD Infectious Disease Fellow Pager [phone] 07/07/22 (Attending addendum to follow) Associated attestation [...] of care, communication with family Full code GEOSPATIAL DEVELOPER, nutrition recommendations, diet regular Anticipated Disposition, PT/OT recommendations Home Team Pager ( Coverage 17/11) [phone] PCP Lorna Bal APRN Attestation IPI Certification I certify that I am a D-H credentialed attending provider with admitting privileges and that the patient meets or has met medical necessity to require an inpatient IPI level of care meeting a minimumof two midnights or is on the [facility] inpatient only procedure list (status C) due [...] 32.2* PLATELET 240 244 307 Recent Labs 07/06/22 0621 07/05/22 0531 07/04/22 0607 NA 138 142 134* K 3.6 3.8 4.1 CL 104 108* 100 CO2 Not Perf 25 24 BUN 4* 6* 8 CREATININE 0.26* 0.29* 0.34* Recent Labs 07/06/22 0621 07/05/22 0531 AST 25 39* ALT 57* 74* [...] future testing is required, contact the Microbiology Application Performance Engineer. * ECG: Recent Labs 07/04/22 0016 [...] who have questions please contact the health early breastfeeding care specialist that requested your imaging first. Chest [...] who have questions please contact the health early breastfeeding care specialist that requested your imaging first. Lumbar [...] who have questions please contact the health early breastfeeding care specialist that requested your imaging first. Abdomen [...] who have questions please contact the health early breastfeeding care specialist that requested your imaging first. * Willis Calero DO - 07/06/2022 9:06 AM EDT INTERVENTIONAL RADIOLOGY [...] follow peripherally. - IR follow up ordered, application packaging consultant notified. Willis Calero DO, MBA Interventional Radiology 07/06/2022 [id number] * Paige Gonzalez, RN - 07/06/2022 5:40 AM EDT OUTCOME [...] and ADLs]:?Total ?? Surveillance [facility]continuous indirect monitoring]:[facility] nurses' station Rounding? [...] is still not taking PO intake, per home care and home health aides teacher have concerns for strep. No BM on [...] of care, communication with family Full code GEOSPATIAL DEVELOPER, nutrition recommendations, diet regular Anticipated Disposition, PT/OT recommendations Home Team Pager (MD Coverage 17/11) [phone] PCP Lorna Bal APRN Attestation IPI Certification I certify that I am a D-H credentialed attending provider with admitting privileges and that the patient meets or has met medical necessity to require an inpatient IPI level of care meeting a minimumof two midnights or is on the [facility] inpatient only procedure list (status C) due [...] who have questions please contact the health early breastfeeding care specialist that requested your imaging first. Chest [...] who have questions please contact the health early breastfeeding care specialist that requested your imaging first. Lumbar [...] who have questions please contact the health early breastfeeding care specialist that requested your imaging first. * [...] : 1995 AGE: 27 y.o. Address: [address] [place] [address] Phone: [phone] (home) Mobile: Telephone Information: Referring Provider: Lorna [...] [Transparent Dressings] Itching and Dermatitis Please use [id number] ??? Penicillins Pertinent PMH: Patient Active Problem [...] Sergey Doan MD Infectious Disease Fellow Pager [phone] 07/04/22 (Attending addendum to follow) Associated attestation [...] spiking fevers now. -Discussed with infectious disease career consultant. Patient will get a repeat aspiration [...] of care, communication with family Full code GEOSPATIAL DEVELOPER, nutrition recommendations, diet regular Anticipated Disposition, PT/OT recommendations Home Team Pager ( Coverage 17/11) [phone] PCP Lorna Bal APRN Attestation IPI Certification I certify that I am a D-H credentialed attending provider with admitting privileges and that the patient meets or has met medical necessity to require an inpatient IPI level of care meeting a minimumof two midnights or is on the [facility] inpatient only procedure list (status C) due [...] who have questions please contact the health early breastfeeding care specialist that requested your imaging first. Chest [...] who have questions please contact the health early breastfeeding care specialist that requested your imaging first. Lumbar [...] who have questions please contact the health early breastfeeding care specialist that requested your imaging first. * Paige Gonzalez RN - 07/04/2022 5:22 AM EST OUTCOME SUMMARY: Pt alert but nonverbal, MARYA orientation, no pain, no shortness of breath, and no chest pain noted. O2@RA. Pt's tempeture 101.1F at the beginning of the shift and one event of emesis. notified. Blood cultures, UA, lactate draw and Zofran ordered. Zofran given with positive effect. Pt's tempeture trending down during the shift. Pt HR 150 sustaining and BP 80s/40s notified, LR bolus ordered 3x. BP still [...] and ADLs]: Total Surveillance [continuous indirect monitoring]: [facility] Bed alarm Room near nurses' station Rounding Patient-specific fall prevention interventions for sensory deficits provided, if applicable: [X] No * Lilli Hughes RPH - 07/04/2022 12:03 AM EST Clinical Pharmacist Note - VancFD Tana Shelton [id number] 1995 Tana Shelton is a 27 y.o. [...] have. Alternately,during off-hours (9p-7a) you may call [phone] to contact a pharmacist. Lilli Hughes RPH [...] ADLs]: Hands on Surveillance [continuous indirect monitoring]: michele Vasquez rourenae Patient-specific fall prevention interventions for sensory [...] of care, communication with family Full code GEOSPATIAL DEVELOPER, nutrition recommendations, diet regular Anticipated Disposition, PT/OT recommendations Home Team Pager ( Coverage 17/11) [phone] PCP Lorna Bal APRN Attestation IPI Certification I certify that I am a D-H credentialed attending provider with admitting privileges and that the patient meets or has met medical necessity to require an inpatient IPI level of care meeting a minimumof two midnights or is on the [facility] inpatient only procedure list (status C) due [...] change was found Confirmed by Lyndon Lafleur ([id number]) on 07/02/2022 5:10:53 PM QTCCALC 443 VASCULAR: [...] who have questions please contact the health early breastfeeding care specialist that requested your imaging first. Chest [...] who have questions please contact the health early breastfeeding care specialist that requested your imaging first. * [...] of care, communication with family Full code GEOSPATIAL DEVELOPER, nutrition recommendations, diet regular Anticipated Disposition, PT/OT recommendations Home Team Pager ( Coverage 17/11) [phone] PCP Lorna Bal APRN Attestation IPI Certification I certify that I am a D-H credentialed attending provider with admitting privileges and that the patient meets or has met medical necessity to require an inpatient IPI level of care meeting a minimumof two midnights or is on the [facility] inpatient only procedure list (status C) due [...] who have questions please contact the health early breastfeeding care specialist that requested your imaging first. * Karrie Smallwood - 07/02/2022 12:21 PM EST Nutrition Services Note - Low Nutrition Acuity Tana Shelton is a 27 y.o. female Reason for intervention: hospital day 9 Nutrition Plan: Continue current diet. Encourage good PO intake. Multivitamin with minerals noted. Monitor weight. Patient screened for hospital length of stay. Barrel Rifler Broach communicated with RN by secure chat and primary home care and home health aides teacher by phone. Per primary caregiver, patient has [...] weeks ago, where patient weighed 108 lbs. Barrel Rifler Broach recommends an updated weight on patient to [...] unless consulted in the interim. ALEJANDRO Osei [phone] * Emeka Zavala MD - 07/02/2022 7:47 [...] 1 tablet ??? lactated Ringers 50 mL/hr (07/01/22 4532) OBJECTIVE: Temp: [36.4 ??C (97.5 ??F)-38.4 ??C [...] of care, communication with family Full code GEOSPATIAL DEVELOPER, nutrition recommendations, diet regular Anticipated Disposition, PT/OT recommendations Home Team Pager ( Coverage 17/11) [phone] PCP Lorna Bal APRN Attestation IPI Certification [...] Lateral leads Confirmed by MD Mele, Luba ([id number]) on 06/29/2022 9:49:48 PM QTCCALC 458 VASCULAR: [...] who have questions please contact the health early breastfeeding care specialist that requested your imaging first. * Tegan Snyder RN - 07/01/2022 11:44 AM EST ANGIO NURSING DATABASE Name: Tana Shelton Date of : 1995 AGE: 27 y.o. Address: [address] [place] [address] Phone: [phone] (home) Mobile: Telephone Information: Referring Provider: Lorna [...] [Transparent Dressings] Itching and Dermatitis Please use [id number] ??? Penicillins Pertinent PMH: Patient Active Problem [...] Patient Name: Tana Shelton : 1995 MR#: [id number] Received contact from primary team regarding drain [...] Sergey Doan MD Infectious Disease Fellow Pager [phone] 06/30/22 (Attending addendum to follow) Associated attestation [...] of care, communication with family Full code GEOSPATIAL DEVELOPER, nutrition recommendations, diet regular Anticipated Disposition, PT/OT recommendations Home Team Pager ( Coverage 17/11) [phone] PCP Lorna Bal APRN Attestation IPI Certification I certify that I am a D-H credentialed attending provider with admitting privileges and that the patient meets or has met medical necessity to require an inpatient IPI level of care meeting a minimumof two midnights or is on the [facility] inpatient only procedure list (status C) due [...] the last 168 hours. Recent Labs 06/30/22 04206/29/2258 06/28/22 0538 CALCIUM 8.9 9.0 9.1 No [...] Lateral leads Confirmed by MD Mele, Luba ([id number]) on 06/29/2022 9:49:48 PM QTCCALC 458 VASCULAR: [...] who have questions please contact the health early breastfeeding care specialist that requested your imaging first. * [...] of care, communication with family Full code GEOSPATIAL DEVELOPER, nutrition recommendations, diet regular Anticipated Disposition, PT/OT recommendations Home Team Pager ( Coverage 17/11) [phone] PCP Lorna Bal APRN Attestation IPI Certification I certify that I am a D-H credentialed attending provider with admitting privileges and that the patient meets or has met medical necessity to require an inpatient IPI level of care meeting a minimumof two midnights or is on the [facility] inpatient only procedure list (status C) due [...] 30.0* PLATELET 345 371* 389* Recent Labs 06/29/2255706/28/2253706/27/22557 NA 134* 137 138 K 4.1 4.0 3.9 CL 102 102 102 CO2 21* 25 25 BUN 11 11 12 CREATININE 0.25* 0.27* 0.32* No results for input(s): AST, ALT, ALKPHOS, BILITOT, BILIDIR in the last 168 hours. Recent Labs 06/29/2255706/28/22537 06/27/22 0558 CALCIUM 9.0 9.1 9.2 No [...] who have questions please contact the health early breastfeeding care specialist that requested your imaging first. * [...] of care, communication with family Full code GEOSPATIAL DEVELOPER, nutrition recommendations, diet regular Anticipated Disposition, PT/OT recommendations Home Team Pager ( Coverage 17/11) [phone] PCP Lorna Bal APRN Attestation IPI Certification I certify that I am a D-H credentialed attending provider with admitting privileges and that the patient meets or has met medical necessity to require an inpatient IPI level of care meeting a minimumof two midnights or is on the [facility] inpatient only procedure list (status C) due [...] who have questions please contact the health early breastfeeding care specialist that requested your imaging first. * Anurag Call DO - 06/27/2022 6:20 PM EST HOSPITAL MEDICINE ATTENDING DAILY PROGRESS NOTE Patient Tana Shelton 1995 [id number] Physician Anurag Call DO Pager [phone] Encounter Date June 27, 2022 Admit Date 06/24/2022 Hospital Day 3 PCP Lorna Bal, MAINTENANCE CRAFTSMAN [phone] ASSESSMENT/PLAN: Active Hospital Problems Diagnosis ??? Spinal [...] Intake/Output Summary (Last 24 hours) at 06/27/2022 4988 Last data filed at 06/27/2022 1643 Gross [...] or cyanosis, no erythema LABS/IMAGING: Recent Labs 06/27/22 0558 06/26/22 0538 06/25/22 022 NA 138 141 140 K 3.9 4.2 4.1 CL 102 103 103 CO2 25 26 27 BUN 12 12 9 CREATININE 0.32* 0.28* 0.30* CALCIUM 9.2 9.3 9.4 Recent Labs 06/27/2255706/26/2253706/25/22 0220 WBC 5.5 5.3 7.2 HGB 9.2* 10.1* [...] minimumof two midnights or is on the [facility] inpatient only procedure list (status C) due [...] Zhanna Garrett - 06/26/2022 7:15 PM EST Data Center Engineer Encounter Note Patient Name: Tana Shelton : [id number] MR#: [id number] Admit Date: 06/24/2022 2:05 PM Hospital Day [...] Tana's mom would be coming back from [place] until the hospital knows what next stepsare. Fannie stated that she was so glad she got Tana to [facility], as the smaller hospitals were dissmissing and [...] Call DO - 06/26/2022 4:51 PM EST [facility] MEDICINE ATTENDING DAILY PROGRESS NOTE Patient Tana Shelton 1995 [id number] Physician Anurag Call DO Pager [phone] Encounter Date June 26, 2022 Admit Date 06/24/2022 Hospital Day 2 PCP Lorna Bal, MAINTENANCE CRAFTSMAN [phone] ASSESSMENT/PLAN: Active Hospital Problems Diagnosis ??? Spinal [...] minimumof two midnights or is on the [facility] inpatient only procedure list (status C) due to: Possible spinal abscess with involvement of previous placed hardware Anurag Call DO [phone] Hospitalist 06/26/2022 4:51 PM * Jimbo Willams [...] monitoring]: Bed alarm, masimo, purposeful rounding * Lucho Foster MD - 06/26/2022 6:11 AM EST ORTHOPAEDIC [...] DAILY PROGRESS NOTE Patient Tana Shelton 1995 [id number] Physician Anurag Call DO Pager [phone] Encounter Date June 25, 2022 Admit Date 06/24/2022 Hospital Day 1 PCP Lorna Bal, MAINTENANCE CRAFTSMAN [phone] ASSESSMENT/PLAN: Active Hospital Problems Diagnosis ??? Spinal [...] data in the 24 hours ending 06/25/22 1942 GEN: awake, alert, NAD HEENT: PERRLA, EOMI, [...] who have questions please contact the health early breastfeeding care specialist that requested your imaging first. ULTANTS: [...] minimumof two midnights or is on the [facility] inpatient only procedure list (status C) due to: Possible spinal abscess with involvement of previous placed hardware Anurag Call DO 2700 Hospitalist 06/25/2022 5:37 PM * Gadiel Morris RN - 06/25/2022 4:19 PM EST [facility]GIO NURSING DATABASE Name: Tana Shelton Date of : 1995 AGE: 27 y.o. Address: [address] [place] [phone] (home) Mobile: Telephone Information: Referring Provider: Lorna [...] [Transparent Dressings] Itching and Dermatitis Please use [id number] ??? Penicillins Pertinent PMH: Patient Active Problem [...] All Drainage Procedures 06/25/2022 Mich Martino MD [facility] INTERVENTIONL RAD ??? IR DRAIN CHECK/CHANGE/REMOVE 07/01/2022 IR Drain Check/Change/Remove 07/01/2022 Jamaal Jenkins, DO [facility] INTERVENTIONL RAD ??? PRO APPLY OF HIP CASTS, TWO LEGS 08/15/2010 CAST APPLICATION, HIP SPICA, BOTH LEGS performed by BARRERA OLIVER at [facility] MAIN OR ? ? PRO I&D, POST SPINE, LUMB/SACR/LUMBOSAC N/A 05/20/2014 @I & D, OPEN, DEEP ABSCESS, LUMBAR, SACRAL, LUMBOSACRAL performed by Freddy Isbell MD at [facility] MAIN OR ? ? PRO I&D, POST SPINE, LUMB/SACR/LUMBOSAC N/A 05/26/2014 @I & D, OPEN, DEEP ABSCESS, LUMBAR, SACRAL, LUMBOSACRAL performed by Freddy Isbell MD at [facility] MAIN OR ??? PRO IMPACT TOOTH REMOV COMP BONY N/A 06/14/2018 SURGICAL EXTRACTIONS, REMOVAL OF IMPACTED TOOTH, COMPLETELY BONY (WRVU 1.93) performed by Keith Cotton MD at [facility] OSC ??? PRO OSTEOTOMY FEMUR SHAFT/SUPRACONDY 08/15/2010 ??OSTEOTOMY, FEMUR SHAFT OR SUPRACONDYLAR W/O FIXATION performed by BARRERA OLIVER at [facility] MAIN OR ??? PRO RECONSTRUC HIP SOCKET, RESEC FEM HEAD 08/15/2010 ??ACETABULOPLASTY (GIRDLESTONE), RESECTION FEMORAL HEAD, BILATERAL performed by BARRERA OLIVER [facility] MAIN OR ??? PRO REMOVAL DEEP IMPLANT 08/15/2010 REMOVAL IMPLANT, DEEP, BRUNO performed by BARRERA OLIVER at [facility] MAIN OR ??? PRO REMOVAL ERUPTED TOOTH WITH ELEVATION OF MUCOPERIOSTEAL FLAP N/A 06/14/2018 SURGICAL EXTRACTIONS REQUIRING ELEVATION OF MUCOPERIOSTEAL FLAP AND REMOVAL OF BONE OR SECTION OF TOOTH (WRVU 1.09) performed by Keith Cotton MD at [facility] OSC ??? PRO REMOVE INFUSN DEVICE/PUMP N/A 05/11/2014 REMOVAL OF SPINE INFUSION PUMP performed by Jamaal Samuel MD at [facility] MAIN OR ??? PRO REMOVE SPINAL CANAL CATHETER N/A 05/11/2014 REMOVAL OF INTRATHECAL OR EPIDURAL CATHETER performed by Jamaal Samuel MD at [facility] MAIN OR ??? PRO REPR, DURAL/CSF LEAK, NOT REQ LAMINECTOMY N/A 05/20/2014 @REPAIR DURAL\CSF LEAK,NOT REQUIRING LAMINECTOMY performed by Freddy Isbell MD at [facility] MAIN OR Social History and [...] of procedure) 07/04/2022 Chrissie Lee PA-C * Anamika Todd PA - 07/01/2022 9:39 AM EST Interventional [...] All Drainage Procedures 06/25/2022 Mich Martino MD [facility] INTERVENTIONL RAD ??? PRO APPLY OF HIP CASTS, TWO LEGS 08/15/2010 CAST APPLICATION, HIP SPICA, BOTH LEGS performed by BARRERA OLIVER at [facility] MAIN OR ? ? PRO I&D, POST SPINE, LUMB/SACR/LUMBOSAC N/A 05/20/2014 @I & D, OPEN, DEEP ABSCESS, LUMBAR, SACRAL, LUMBOSACRAL performed by Freddy Isbell MD at [facility] MAIN OR ? ? PRO I&D, POST SPINE, LUMB/SACR/LUMBOSAC N/A 05/26/2014 @I & D, OPEN, DEEP ABSCESS, LUMBAR, SACRAL, LUMBOSACRAL performed by Freddy Isbell MD at [facility] MAIN OR ??? PRO IMPACT TOOTH REMOV COMP BONY N/A 06/14/2018 SURGICAL EXTRACTIONS, REMOVAL OF IMPACTED TOOTH, COMPLETELY BONY (WRVU 1.93) performed by Keith Cotton MD at [facility] OSC ??? PRO OSTEOTOMY FEMUR SHAFT/SUPRACONDY 08/15/2010 ??OSTEOTOMY, FEMUR SHAFT OR SUPRACONDYLAR W/O FIXATION performed by BARRERA OLIVER at [facility] MAIN OR ??? PRO RECONSTRUC HIP SOCKET, RESEC FEM HEAD 08/15/2010 ??ACETABULOPLASTY (GIRDLESTONE), RESECTION FEMORAL HEAD, BILATERAL performed by BARRERA OLIVER [facility] MAIN OR ??? PRO REMOVAL DEEP IMPLANT 08/15/2010 REMOVAL IMPLANT, DEEP, BRUNO performed by BARRERA OLIVER at [facility] MAIN OR ??? PRO REMOVAL ERUPTED TOOTH WITH ELEVATION OF MUCOPERIOSTEAL FLAP N/A 06/14/2018 SURGICAL EXTRACTIONS REQUIRING ELEVATION OF MUCOPERIOSTEAL FLAP AND REMOVAL OF BONE OR SECTION OF TOOTH (WRVU 1.09) performed by Keith Cotton MD at [facility] OSC ??? PRO REMOVE INFUSN DEVICE/PUMP N/A 05/11/2014 REMOVAL OF SPINE INFUSION PUMP performed by Jamaal Samuel MD at [facility] MAIN OR ??? PRO REMOVE SPINAL CANAL CATHETER N/A 05/11/2014 REMOVAL OF INTRATHECAL OR EPIDURAL CATHETER performed by Jamaal Samuel MD at [facility] MAIN OR ??? PRO REPR, DURAL/CSF LEAK, NOT REQ LAMINECTOMY N/A 05/20/2014 @REPAIR DURAL\CSF LEAK,NOT REQUIRING LAMINECTOMY performed by Freddy Isbell MD at [facility] OR Social History and Habits: Social History [...] Tegaderms. S. Gómez Ellison MD PGY-2 Pager #[phone] Department of Radiology [facility] 06/25/2022 Source Note - Hank Nunez PA [...] BOTH LEGS performed by BARRERA OLIVER at [facility] MAIN OR ? ? PRO I&D, POST SPINE, LUMB/SACR/LUMBOSAC N/A 05/20/2014 @I & D, OPEN, DEEP ABSCESS, LUMBAR, SACRAL, LUMBOSACRAL performed by Freddy Isbell MD at [facility] MAIN OR ? ? PRO I&D, POST SPINE, LUMB/SACR/LUMBOSAC N/A 05/26/2014 @I & D, OPEN, DEEP ABSCESS, LUMBAR, SACRAL, LUMBOSACRAL performed by Freddy Isbell MD at [facility] MAIN OR ??? PRO IMPACT TOOTH REMOV COMP BONY N/A 06/14/2018 SURGICAL EXTRACTIONS, REMOVAL OF IMPACTED TOOTH, COMPLETELY BONY (WRVU 1.93) performed by Keith Cotton MD at [facility] OSC ??? PRO OSTEOTOMY FEMUR SHAFT/SUPRACONDY 08/15/2010 ??OSTEOTOMY, FEMUR SHAFT OR SUPRACONDYLAR W/O FIXATION performed by BARRERA OLIVER at [facility] MAIN OR ??? PRO RECONSTRUC HIP SOCKET, RESEC FEM HEAD 08/15/2010 ??ACETABULOPLASTY (GIRDLESTONE), RESECTION FEMORAL HEAD, BILATERAL performed by BARRERA OLIVER [facility] MAIN OR ??? PRO REMOVAL DEEP IMPLANT 08/15/2010 REMOVAL IMPLANT, DEEP, BRUNO performed by BARRERA OLIVER at [facility] MAIN OR ??? PRO REMOVAL ERUPTED TOOTH WITH ELEVATION OF MUCOPERIOSTEAL FLAP N/A 06/14/2018 SURGICAL EXTRACTIONS REQUIRING ELEVATION OF MUCOPERIOSTEAL FLAP AND REMOVAL OF BONE OR SECTION OF TOOTH (WRVU 1.09) performed by Keith Cotton MD at [facility] OSC ??? PRO REMOVE INFUSN DEVICE/PUMP N/A 05/11/2014 REMOVAL OF SPINE INFUSION PUMP performed by Jamaal Samuel MD at [facility] MAIN OR ??? PRO REMOVE SPINAL CANAL CATHETER N/A 05/11/2014 REMOVAL OF INTRATHECAL OR EPIDURAL CATHETER performed by Jamaal Samuel MD at [facility] OR ??? PRO REPR, DURAL/CSF LEAK, NOT REQ LAMINECTOMY N/A 05/20/2014 @REPAIR DURAL\CSF LEAK,NOT REQUIRING LAMINECTOMY performed by Freddy Isbell MD at [facility] OR Social history and habits: Social History [...] BOTH LEGS performed by BARRERA OLIVER at [facility] MAIN OR ? ? PRO I&D, POST SPINE, LUMB/SACR/LUMBOSAC N/A 05/20/2014 @I & D, OPEN, DEEP ABSCESS, LUMBAR, SACRAL, LUMBOSACRAL performed by Freddy Isbell MD at [facility] MAIN OR ? ? PRO I&D, POST SPINE, LUMB/SACR/LUMBOSAC N/A 05/26/2014 @I & D, OPEN, DEEP ABSCESS, LUMBAR, SACRAL, LUMBOSACRAL performed by Freddy Isbell MD at [facility] OR ??? PRO IMPACT TOOTH REMOV COMP BONY N/A 06/14/2018 SURGICAL EXTRACTIONS, REMOVAL OF IMPACTED TOOTH, COMPLETELY BONY (WRVU 1.93) performed by Keith Cotton MD at [facility] OSC ??? PRO OSTEOTOMY FEMUR SHAFT/SUPRACONDY 08/15/2010 ??OSTEOTOMY, FEMUR SHAFT OR SUPRACONDYLAR W/O FIXATION [facility] 1.09) performed by Keith Cotton MD at [facility] OSC ??? PRO REMOVE INFUSN [...] Isbell MD at [facility] OR Social history and habits: Social History [...] quadriplegia ID: 27 y.o. Female presents to [facility] with redness and drainage from midline surgical [...] however on 06/17 she was brought to [facility] by her bioinformatics analyst for possibly increased back pain and received [...] BOTH LEGS performed by BARRERA OLIVER at [facility] MAIN OR ? ? PRO I&D, POST SPINE, LUMB/SACR/LUMBOSAC N/A 05/20/2014 @I & D, OPEN, DEEP ABSCESS, LUMBAR, SACRAL, LUMBOSACRAL performed by Freddy Isbell MD at [facility] MAIN OR ? ? PRO I&D, POST SPINE, LUMB/SACR/LUMBOSAC N/A 05/26/2014 @I & D, OPEN, DEEP ABSCESS, LUMBAR, SACRAL, LUMBOSACRAL performed by Freddy Isbell MD at [facility] MAIN OR ??? PRO IMPACT TOOTH REMOV COMP BONY N/A 06/14/2018 SURGICAL EXTRACTIONS, REMOVAL OF IMPACTED TOOTH, COMPLETELY BONY (WRVU 1.93) performed by Keith Cotton MD at [facility] OSC ??? PRO OSTEOTOMY FEMUR SHAFT/SUPRACONDY 08/15/2010 ??OSTEOTOMY, FEMUR SHAFT OR SUPRACONDYLAR W/O FIXATION performed by BARRERA OLIVER at [facility] MAIN OR ??? PRO RECONSTRUC HIP SOCKET, RESEC FEM HEAD 08/15/2010 ??ACETABULOPLASTY (GIRDLESTONE), RESECTION FEMORAL HEAD, BILATERAL performed by BARRERA OLIVER [facility] MAIN OR ??? PRO REMOVAL DEEP IMPLANT 08/15/2010 REMOVAL IMPLANT, DEEP, BRUNO performed by BARRERA OLIVER at [facility] MAIN OR ??? PRO REMOVAL ERUPTED TOOTH WITH ELEVATION OF MUCOPERIOSTEAL FLAP N/A 06/14/2018 SURGICAL EXTRACTIONS REQUIRING ELEVATION OF MUCOPERIOSTEAL FLAP AND REMOVAL OF BONE OR SECTION OF TOOTH (WRVU 1.09) performed by Keith Cotton MD at [facility] OSC ??? PRO REMOVE INFUSN DEVICE/PUMP N/A 05/11/2014 REMOVAL OF SPINE INFUSION PUMP performed by Jamaal Samuel MD at [facility] MAIN OR ??? PRO REMOVE SPINAL CANAL CATHETER N/A 05/11/2014 REMOVAL OF INTRATHECAL OR EPIDURAL CATHETER performed by Jamaal Samuel MD at [facility] MAIN OR ??? PRO REPR, DURAL/CSF LEAK, NOT REQ LAMINECTOMY N/A 05/20/2014 @REPAIR DURAL\CSF LEAK,NOT REQUIRING LAMINECTOMY performed by Freddy Isbell MD at [facility] MAIN OR Prior To Admission Medications: (Not in a hospital admission) Allergies: Allergies Allergen Reactions ??? Fluoxetine Other (See Comments) HIVES, HEART RACES ??? Tegaderm [Transparent Dressings] Itching and Dermatitis Please use [id number] ??? Penicillins Family History: Family History Problem [...] Administered Date(s) Administered ??? Influenza Vaccine (Novel) [id number], Injectable 02/25/2009 ??? Influenza Vaccine w/Preservative, Split [...] improvement in thecellulitis. Tana was brought [facility] on 06/17/2022 by her bioinformatics analyst as there was some concern for having perceived pain her back (patient is non-verbal). Patient was hospitalized for IV antibiotic treatment of a presumed cellulitis. examination by providers at [facility] did not not preceded evidence of [...] The patient was evaluated by orthopaedics at [facility] (Dr. Weiss) who did not recommend attempting to aspirate the area. Inflammatory labs on 06/19/20 were: WBC: 7, CRP: 7.5. She is afebrile, and there have been no fevers since the time she began oral antibiotics for the cellulitis. Prior to discharge Dr. Simmons from orthopedics at [facility] once consulted. Per his note on 06/19/2022 [...] be progressing again since her discharge from [facility] on 06/19/2020. Patient hasbeen afebrile with no [...] and did the previous consult note from [facility]. Spoke with orthopedics who are recommending [...] 2046: Orthopedics were able to reach their personal injury law specialist and will evaluate patient. Plan based [...] who have questions please contact the health early breastfeeding care specialist that requested your imaging first. Assessment [...] [facility] [address] [place] [address] Transportation: family or friend will provide *Mother [...] agreement with plan. Phyllis Abraham RN, BSN Mortgage Lender - Medicine Office of Care Management Office: Pager: [phone] * Plan of Care - Jigna Neal [...] yesterday morning Please call with any questions #[phone] Jean-Pierre Godinez RN * Consult Note - Vi Lawrence [facility] - 07/05/2022 8:27 AM EST ?? The [...] Alternately, during off-hours you comfort marlon call [phone] to contact a pharmacist. * Care Management [...] Agency/Support Group Needs: Homecare agency Agency Referrals: [facility] following for DC needs and possible acceptance. Transportation: family or friend will provide Barriers to discharge: Discharge planning Plan going forward: Repeat CT lumbar spine today due to recurrent low grade fevers Care Management will continue to follow and assist with discharge planning and coordination of care as indicated. Anticipated Date of Discharge: 07/07/2022 Phyllis Abraham RN, BSN Mortgage Lender - Medicine Office of Care Management Office: Pager: [phone] * Care Management - Amy Trejo RN [...] the home.. Current Functional Ability: Completely Dependent *17/11 caregivers at home, may or may not [...] Agency Referrals: I have met with the group sales representative (anderson) to: ?? discuss discharge planning needs. ?? provide the [facility], Office of Care Management letter from the Waste Reduction Coordinator pertaining to rehabreferrals. ?? provide a letter describing our affiliations within the [facility] and educate about their right to choose where referrals are sent. ?? provide a list of Home Health Agencies / Durable Medical Equipment vendors which serve their preferred geographic area. ?? provided patient with [facility] Star Quality Rating handout. They have requested referrals to: [facility] [employer]. [address] [place] [id number] Note routed to a Health Insurance Assessor who will communicate referrals to facilities and [...] Date of Discharge: 07/03/2022 Amy Trejo RN, Pager-[phone] * Plan of Care - Katherine Ryan RN - 07/02/2022 4:51 PM EST OUTCOME EVALUATION NOTE: OUTCOME SUMMARY: Alert on RA, assessment as documented. Does not appear to be in pain. LR 500cc bolus fo SBP 94 increased to 110. HR remain tachy to low 100s. Cont LR discontinued. [facility]'ed for UA sample. CXR obtained. High temp [...] ADLs]: Total care Surveillance [continuous indirect monitoring]: Masimo, purposeful rounding * Plan of Care - [...] purposeful rounding * Plan of Care - Anurga Contreras RN - 06/29/2022 6:13 PM EST [...] improvement. On 06/17 she was seen at [facility] due to increased back pain and [...] with you. Please call with questions, pager [phone]. Discussed with attending, Dr. Brown Tee MD [...] is possible that her prior [facility] have made cultures less sensitive. * Plan of Care - Piter Magaña RN - 06/28/2022 5:15 AM EST OUTCOME EVALUATION NOTE: OUTCOME SUMMARY: Patient has been sleeping intermittently throughout the night. VSS. Mom remains atthe bedside and is attentive to patient. Continues on tele. HR noted to sustain in the 120's-130's.Tele showed ST. All other VSS. Patient asymptomatic. MD ([id number]) made aware and ordered 500 ml bolus [...] Franklin RN - 06/25/2022 11:11 AM ESTSummary: [place] Initial Assessment Office of Care Management [...] the home: roomate(s), other (see comments) (caregiver, Fnanie). Current Living Arrangements: home/apartment/condo. Accessibility Concerns:ramp to enter the home.. Resource / Environmental Concerns: Resource/Environmental Concerns: none Current DME: hospital bed, lift device Home Address confirmed as: [address] [place] [address] Social & Family Supports: All names listed below confirmed with patient as current and correct Extended Emergency Contact Information [facility] Relation: Mother Secondary Emergency Contact: Curt [facility] Mobile Relation: Step parent Current Care [...] Insurance: N/A Prescription Coverage: Yes Preferred Pharmacy: [facility] [address] [place] [address] [address] [facility] [address] [facility] [address] [facility] Home Delivery - [place] [address] [place] [address] [facility] [id number] - [place], [place] - [address] [facility] [address] [facility] [address] [place] Status: Patient is a : No Primary Care Provider confirmed: Lornaoh Kleinell, MAINTENANCE CRAFTSMAN [phone] Patient/Caregiver Goals of Treatment: Caregiver anticipates return [...] of care planning. Alicja Franklin RN, BSN medicaid biller Office of Care Management Pager: [phone] * Consult Note - Piter Palmer MD - 06/24/2022 11:04 PM EST Images from the original note were not included. Orthopaedic Spine Consult Note Consult Received: 6PM Patient Seen: 7PM Attending: Dr. Christy Shelton is a 27 y.o. female who presents to see us in consultation today at the request of Eddi Vázquez MD for lumbar erythema. Chief Complaint: lumbar erythema, fluid collection History of Present Illness: Tana Shelton is a 27 y.o. female with CP/spastic quadriplegia and history of spinal fusion for scoliosis (Dr. Oliver 2008), bilateral [place] procedures, removal of a baclofen pump in 2015 complicated by infection requiring multiple washouts and prolonged antibiotics since resolved, who presents with 1 week of lumbar erythema. Prior to this episode erythema, the caretakers report the patient has been doing well and has not had an issue with her back in years. Patient was originally seen at [facility] where an ultrasound performed demonstrating a small fluid collection in the subcutaneous tissue. Patient was admitted for 2 days at [facility] for IV antibiotics and then ultimately transitioned to p.o. antibiotics on discharge. Patient presents to the [facility] ED today for persistent erythema despite antibiotic [...] BOTH LEGS performed by BARRERA OLIVER at [facility] MAIN OR ? ? PRO I&D, POST SPINE, LUMB/SACR/LUMBOSAC N/A 05/20/2014 @I & D, OPEN, DEEP ABSCESS, LUMBAR, SACRAL, LUMBOSACRAL performed by Freddy Isbell MD at [facility] MAIN OR ? ? PRO I&D, POST SPINE, LUMB/SACR/LUMBOSAC N/A 05/26/2014 @I & D, OPEN, DEEP ABSCESS, LUMBAR, SACRAL, LUMBOSACRAL performed by Freddy Isbell MD at [facility] MAIN OR ??? PRO IMPACT TOOTH REMOV COMP BONY N/A 06/14/2018 SURGICAL EXTRACTIONS, REMOVAL OF IMPACTED TOOTH, COMPLETELY BONY (WRVU 1.93) performed by Keith Cotton MD at [facility] OSC ??? PRO OSTEOTOMY FEMUR SHAFT/SUPRACONDY 08/15/2010 ??OSTEOTOMY, FEMUR SHAFT OR SUPRACONDYLAR W/O FIXATION performed by BARRERA OLIVER at [facility] MAIN OR ??? PRO RECONSTRUC HIP SOCKET, RESEC FEM HEAD 08/15/2010 ??ACETABULOPLASTY (GIRDLESTONE), RESECTION FEMORAL HEAD, BILATERAL [facility] ??? PRO REMOVAL DEEP IMPLANT 08/15/2010 REMOVAL IMPLANT, DEEP, BRUNO performed by BARRERA OLIVER at [facility] MAIN OR ??? PRO REMOVAL ERUPTED TOOTH WITH ELEVATION OF MUCOPERIOSTEAL FLAP N/A 06/14/2018 SURGICAL EXTRACTIONS REQUIRING ELEVATION OF MUCOPERIOSTEAL FLAP AND REMOVAL OF BONE OR SECTION OF TOOTH (WRVU 1.09) performed by Keith Cotton MD at [facility] OSC ??? PRO REMOVE INFUSN [...] Isbell MD at [facility] OR Home Medications: (Not in a hospital admission) Allergies: Allergies Allergen Reactions ??? Fluoxetine Other (See Comments) HIVES, HEART RACES ??? Tegaderm [Transparent Dressings] Itching and Dermatitis Please use [id number] ??? Penicillins Current Medications: No current facility-administered [...] possible poor wound healing. Joe Harrison MD [facility] - Department of Orthopaedic Surgery Line Erector Apprentice - Department of Orthopedic Surgery / Academics and Research Field Human Resources Manager Professor - [facility] 06/25/2022 * Consult Note - Kelvin Munson, [facility] - 06/24/2022 9:44 PM EST TelePharmacy Home Medication List Update for Medication Reconciliation 06/24/22 9:45 PM Tana Shelton 1995 Allergies Allergen Reactions ??? Fluoxetine Other (See Comments) HIVES, HEART RACES ??? Tegaderm [Transparent Dressings] Itching and Dermatitis Please use [id number] ??? Penicillins ??? 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 Quality of Interview/accuracy of medication list: [...] PM EST Office [place] [address] Hollie Ambriz MD [facility] [place] [address] Scheduled Referrals Name Type Priority Associated Diagnoses Orde r Schedule Referral to Home Health Outpatient Referral Routine Bacteremia Ordered: 07/09/2022 documented as of this encounter Procedures Procedure Name Priority Date/Time Associated Diagnosis Comments HEMOGRAM Routine 07/09/2022 3:55 AM EDT DIFFERENTIAL, AUTOMATED Routine 07/09/2022 3:55 AM EDT HC CBC,PLT & AUTO DIFF Routine 3:55 AM EDT BASIC METABOLIC PANEL Routine 07/09/2022 3:55 AM EDT IR SITE [...] 5: 48 AM EDT BASIC METABOLIC PANEL Routine 07/08/2022 5:48 AM EDT EKG 12-LEAD [...] 07/07/2022 3:41 AM EDT BASIC METABOLIC PANEL Routine 07/07/2022 3:41 AM EDT HC HEMOGLOBIN, BLOOD STAT 07/06/2022 6:40 PM EDT HC VENIPUNCTURE STAT 07/06/2022 6:40 PM EDT POCT GLUCOSE Routine 07/06/2022 5:36 PM EDT CRP, ACUTE INFLAMMATION Routine 07/06/2022 6:21 AM EDT LAVENDER TUBE HOLD Routine 07/06/2022 6: 21 AM EDT HC VENIPUNCTURE Routine 07/06/2022 6:21 AM EDT HEPATIC FUNCTION PANEL Routine 6:21 AM EDT BASIC METABOLIC PANEL Routine 07/06/2022 6:[address] ABDOMEN AND PELVIS W CONTRAST Routine 07/05/2022 4:07 PM EST BILIRUBIN, DIRECT Routine 07/05/2022 5:3 1 AM EST SCAN, PERIPHERAL BLOOD Routine 5:31 AM EST HEMOGRAM Routine 07/05/2022 5:31 AM EST DIFFERENTIAL, AUTOMATED Routine 07/05/2022 5:31 AM EST HC VENIPUNCTURE Routine 07/05/2022 5:31 AM EST COMPREHENSIVE METABOLIC PANEL Routine 07/05/2022 5:31 AM EST IR ALL DRAINAGE PROCEDURES Routine 07/04/2022 4:14 PM EST HEMOGRAM Routine 07/04/2022 6:07 AM EST DIFFERENTIAL, AUTOMATED Routine 07/04/2022 6:07 AM EST HC L-LACTATE Timed 07/04/2022 6:07 AM EST HC VENIPUNCTURE Routine 07/04/2022 6:07 AM EST BASIC METABOLIC PANEL Routine 07/04/2022 6:07 AM EST URINALYSIS MICROSCOPIC [...] Routine 6:15 AM EST BASIC METABOLIC PANEL Routine 07/02/2022 6:15 AM EST HC VENIPUNCTURE [...] 5 :38 AM EST BASIC METABOLIC PANEL Routine 06/28/2022 5:38 AM EST HEMOGRAM Routine 06/27/2022 5:58 AM EST DIFFERENTIAL, AUTOMATED Routine 06/27/2022 5:58 AM EST HC VENIPUNCTURE Routine 06/27/2022 5:58 AM EST BASIC METABOLIC PANEL Routine 06/27/2022 5:58 AM EST BLOOD GAS VENOUS ([facility]) STAT 9:01 PM EST EKG 12-LEAD STAT 06/26/2022 8:46 PM EST Spinal abscess HEMOGRAM Routine 06/26/2022 5:38 AM EST DIFFERENTIAL, AUTOMATED Routine 06/26/2022 5:38 AM EST HC CBC,PLT & AUTO DIFF Routine 5:38 AM EST BASIC METABOLIC PANEL Routine 06/26/2022 5:38 AM EST IR ALL [...] HC CBC,PLT & AUTO DIFF Routine 3 2:20 AM EST BASIC METABOLIC PANEL Routine 06/25/2022 2:[address] LUMBAR SPINE WITH CONTRAST STAT 06/24/2022 6:27 PM EST HC C-REACTIVE PROTEIN STAT 06/24/2022 4:23 PM EST HEMOGRAM STAT 06/24/2022 4:23 PM EST DIFFERENTIAL, AUTOMATED STAT 06/24/2022 4:23 PM EST HC ESR-SEDIMENTATION RATE, BLOOD STAT 06/24/2022 4:23 PM EST HC CBC,PLT & AUTO DIFF STAT 4:23 PM EST BASIC METABOLIC PANEL STAT 06/24/2022 4:23 PM EST documented in this encounter Results * (ABNORMAL) Differential, Automated (07/09/2022 3:55 AM EDT) Neutrophil % 51.7 % [facility] Neutrophil Absolute 3.50 1.70 - 6.10 x10(3)/mc L [facility] Lymph % 39.1 % [facility] Lymphocytes Abs 2.6 0.9 - 3.2 x10(3)/mc L [facility] Monocyte % 5.9 % [facility] Monocyte Abs 0.4 0.3 - 0.9 x10(3)/mc L [facility] Eos % 1.5 % [facility] Eosinophils Abs 0.1 0.0 - 0.4 x10(3)/mc L [facility] Basophil % 0.6 % [facility] Baso Absolute 0.0 0.0 - 0.1 x10(3)/mc L [facility] Immature Gran % 1.20 % [facility] Comment: Immature granulocytes(IG's)percentage and absolute count will include metamyelocytes, myelocytes, and promyelocytes. Blood smears from CBCs yielding IG's will be scanned manually for concordance. If this scan disagrees with the automated IG or if promyelocytes are noted, a manual differential will be performed. Immature Gran Absolute 0.08(H) 0.00 - 0.04 x10(3)/ L [facility] Blood 07/09/2022 3:55 AM EDT 07/09/2022 4:02 AM EDT Narrative Resulting Agency Comment Spec In Lab Hollie Perez MD HEMATOLOGY ORDERABL ES [facility] [place] [address] * (ABNORMAL) Hemogram (07/09/2022 3:55 AM EDT) White Blood Cell 6.8 4.0 - 9.5 x10(3)/[facility] Red Blood Cell 3.54(L) 4.00 - 5.21 x10(6)/[facility] Hemoglobin 8.8(L) 11.7 - 15.5 g/dL [facility] Hematocrit 28.1(L) 35.7 - 45.8 % [facility] Mean Cell Volume 79.4(L) 82.6 - 94.4 fL [facility] Mean Cell Hemoglobin 24.9(L) 27.1 - 32.0 pg [facility] Mean Cell Hemoglobin Concentration 31.3(L) 31.7 - 35.0 g/dL [facility] Platelet 386(H) 145 - 357 x10(3)/mc L [facility] RDW Standard Deviation 57.2(H) 37.0 - 46.0 fL [facility] RDW coefficient of variation 20.9(H) 11.5 - 14.1 % [facility] Mean Platelet Volume 9.4 7.6 - 12.9 fL [facility] NRBC% auto 0.0 % [facility] NRBC Absolute 0.000 0.000 - 0.000 x10(3)/ L [facility] Blood 07/09/2022 3:55 AM EDT 07/09/2022 4:02 AM EDT Narrative Resulting Agency Comment Spec In Lab Hollie Perez MD HEMATOLOGY ORDERABL ES [facility] [place] [address] * (ABNORMAL) Basic Metabolic Panel (non-fasting) (07/09/2022 3:55 AM EDT) Glucose 101 65 - 199 mg/dL [facility] Comment:Diabetes: >=200 mg/d L plus symptoms Blood Urea Nitrogen 8 8 - 18 mg/dL [facility] Creatinine 0.26(L) 0.70 - 1.20 mg/dL [facility] Sodium 139 135 - 145 mmol/L [facility] Potassium 4.2 3.5 - 5.0 mmol/L [facility] Comment: Please note: ??Patients with WBC >100,000 may have falsely elevated Potassium levels. ??For accurate Potassium quantification in these patients send serum separator tube (gold top) for subsequent determinations. ??Contact the Clinical Chemistry Laboratory if there are any questions. Chloride 104 98 - 107 mmol/L [facility] Carbon Dioxide 23 22 - 31 mmol/L [facility] Anion Gap 12 5 - 15 mmol/L [facility] Calcium 9.1 8.5 - 10.5 mg/dL [facility] Est Glomerular Filtration Rate 152 >=60 mL/min/1. 73 m?? [facility] Comment: This patient's estimated GFR [...] Lab Hollie Perez MD CHEMISTRY ORDERABLE S [facility] [place] [address] * IR Site Check In Recovery Room (07/08/2022 10:29 AM EDT) Narrative Dicom, Auditing User - 07/08/2022 10:29 AM EDT This exam is auto-finalizing. No interpretation was done. Hollie Perez MD IMG IR ORDERABLES * (ABNORMAL) Differential, Automated (07/08/2022 5:48 AM EDT) Neutrophil % 49.5 % [facility] Neutrophil Absolute 2.62 1.70 - 6.10 x10(3)/mc L [facility] Lymph % 41.6 % [facility] Lymphocytes Abs 2.2 0.9 - 3.2 x10(3)/mc L [facility] Monocyte % 5.5 % [facility] Monocyte Abs 0.3 0.3 - 0.9 x10(3)/mc L [facility] Eos % 2.1 % [facility] Eosinophils Abs 0.1 0.0 - 0.4 x10(3)/mc L [facility] Basophil % 0.4 % [facility] Baso Absolute 0.0 0.0 - 0.1 x10(3)/mc L [facility] Immature Gran % 0.90 % [facility] Comment: Immature granulocytes(IG's)percentage and absolute count will include metamyelocytes, myelocytes, and promyelocytes. Blood smears from CBCs yielding IG's will be scanned manually for concordance. If this scan disagrees with the automated IG or if promyelocytes are noted, a manual differential will be performed. Immature Gran Absolute 0.05(H) 0.00 - 0.04 x10(3)/mc L [facility] Blood 07/08/2022 5:48 AM EDT 07/08/2022 5:53 AM EDT Narrative Resulting Agency Comment Spec In Lab Hollie Perez MD HEMATOLOGY ORDERABL ES [facility] [place] [address] * (ABNORMAL) Hemogram (07/08/2022 5:48 AM EDT) White Blood Cell 5.3 4.0 - 9.5 x10(3)/mc L [facility] Red Blood Cell 3.42(L) 4.00 - 5.21 x10(6)/mc L [facility] Hemoglobin 8.4(L) 11.7 - 15.5 g/dL [facility] Hematocrit 27.2(L) 35.7 - 45.8 % [facility] Mean Cell Volume 79.5(L) 82.6 - 94.4 fL [facility] Mean Cell Hemoglobin 24.6(L) 27.1 - 32.0 pg [facility] Mean Cell Hemoglobin Concentration 30.9(L) 31.7 - 35.0 g/dL [facility] Platelet 336 145 - 357 x10(3)/mc L [facility] RDW Standard Deviation 55.7(H) 37.0 - 46.0 fL [facility] RDW coefficient of variation 19.9(H) 11.5 - 14.1 % [facility] Mean Platelet Volume 9.2 7.6 - 12.9 fL [facility] NRBC% auto 0.4 % [facility] NRBC Absolute 0.020(H) 0.000 - 0.000 x10(3)/mc L [facility] Blood 07/08/2022 5:48 AM EDT 07/08/2022 5:53 AM EDT Narrative Resulting Agency Comment Spec In Lab Hollie Perez MD HEMATOLOGY ORDERABL ES Performing Organization Address City/[facility]/ZIP Co de Phone Number [facility] [place] [address] * (ABNORMAL) Basic Metabolic Panel (non-fasting) (07/08/2022 5:48 AM EDT) Glucose 92 65 - 199 mg/dL [facility] Comment:Diabetes: >=200 mg/d L plus symptoms Blood Urea Nitrogen 6(L) 8 - 18 mg/dL [facility] Creatinine 0.24(L) 0.70 - 1.20 mg/dL [facility] Sodium 140 135 - 145 mmol/L [facility] Potassium 3.8 3.5 - 5.0 mmol/L [facility] Comment: Please note: ??Patients with WBC >100,000 may have falsely elevated Potassium levels. ??For accurate Potassium quantification in these patients send serum separator tube (gold top) for subsequent determinations. ??Contact the Clinical Chemistry Laboratory if there are any questions. Chloride 105 98 - 107 mmol/L [facility] Carbon Dioxide 23 22 - 31 mmol/L [facility] Anion Gap 12 5 - 15 mmol/L [facility] Calcium 8.7 8.5 - 10.5 mg/dL [facility] Est Glomerular Filtration Rate 155 >=60 mL/min/1. 73 m?? [facility] Comment: This patient's estimated GFR [...] Lab Hollie Perez MD CHEMISTRY ORDERABLE S [facility] [place] [address] * Cortisol (07/08/2022 5:48 AM EDT) Cortisol 17.6 mcg/dL [facility] Comment: Reference ranges: ??AM (6-10am): ??4.8-19.5 mcg/dL ??PM (4-8pm) : ??2.5-11.9 mcg/dL Blood 07/08/2022 5:48 AM EDT 07/08/2022 5:53 AM EDT Narrative Resulting Agency Comment Spec In Lab Hollie Perez MD CHEMISTRY ORDERABLE S Performing Organization Address City/[facility]/ZIP Co de Phone Number [facility] [place] [address] * (ABNORMAL) CRP, acute inflammation (07/08/2022 5:48 AM EDT) C-Reactive Protein 16.8(H) <=4.9 mg/L [facility] Blood 07/08/2022 5:48 AM EDT 07/08/2022 5:53 AM EDT Narrative Resulting Agency Comment Spec In Lab Hollie Perez MD CHEMISTRY ORDERABLE S Performing Organization Address [facility] Co de Phone Number [facility] [place] [address] * (ABNORMAL) Ferritin (07/08/2022 5:48 AM EDT) Ferritin 204(H) 15 - 150 ng/mL [facility] Comment: Pediatric reference ranges not verified at [facility], interpret with caution. Reference ranges for females greater than 50 years of age approach values for men, i.e., 30-400 ng/mL. Blood 07/08/2022 5:48 AM EDT 07/08/2022 5:53 AM EDT Narrative Resulting Agency Comment Spec In Lab Hollie Perez MD CHEMISTRY ORDERABLE S Performing Organization Address [facility] Co de Phone Number [facility] [place] [address] * (ABNORMAL) Iron and TIBC (07/08/2022 5:48 AM EDT) Iron 52 30 - 150 mcg/dL [facility] TIBC 217(L) 250 - 450 mcg/dL [facility] Iron Saturation 24 20 - 50 % [facility] Blood 07/08/2022 5:48 AM EDT 07/08/2022 5:53 AM EDT Narrative Resulting Agency Comment Spec In Lab Hollie Perez MD CHEMISTRY ORDERABLE S Performing Organization Address City/[facility] Co de Phone Number [facility] [place] [address] * EKG 12 Lead (07/07/2022 11:44 AM EDT) Ventricular rate 78 BPM MUSE SYSTEM Atrial Rate 78 BPM MUSE SYSTEM P-R Interval 132 ms MUSE SYSTEM QRS Duration 84 ms MUSE SYSTEM Q-T Interval 410 ms MUSE SYSTEM QTC Calculated (Bezet) 467 ms MUSE SYSTEM Calculated P [place] 23 degrees MUSE SYSTEM Calculated R [place] 0 degrees MUSE SYSTEM Calculated T [place] 24 degrees MUSE SYSTEM INTERPRETATION Normal sinus [...] Perez MD ECG ORDERABLES Performing Organization Address [facility] Co de Phone Number MUSE SYSTEM * (ABNORMAL) Blood Gas Venous ([facility]) (07/07/2022 7:10 AM EDT) pH, Venous 7.42 7.32 - 7.42 [facility] PCO2, Venous 39(L) 41 - 51 mmHg [facility] PO2, Venous 58(H) 25 - 40 mmHg [facility] Bicarbonate, Venous 24.5 mmol/L [facility] Base Excess, Venous 0.0 mmol/L [facility] Hgb Blood Gas 8.8(L) 11.7 - 15.5 g/dL [facility] Oxyhemoglobin, Venous 89.6 % [facility] Carboxyhemoglob in, Venous 0.3 % [facility] Comment: Nonsmokers: 0.5-1.5% COHB Smokers: Variable, but usually less than 10% Toxic: 20-30% COHB Lethal: Greater than 60% COHB Methemoglobin, Venous 0.1 <=1.5 % [facility] Na Whole Blood 138 135 - 145 mmol/L [facility] K Whole Blood 3.6 3.5 - 5.0 mmol/L [facility] Comment: Please note: Patients with WBC >100,000 may have falsely elevated Potassium levels. Contact the Clinical Chemistry Laboratory if there are any questions. ICa Whole Blood 1.16 1.15 - 1.33 mmol/L [facility] Comment: Note: ??Total bilirubin higher than 20 mg/dL may lead to falsely low ionized calcium. CL Whole Blood 109(H) 98 - 107 mmol/L [facility] Gluc Whole Bld 89 65 - 199 mg/dL [facility] Comment:Diabetes: >=200 mg/d L plus symptoms Lactate WB 1.3 0.5 - 2.2 mmol/L [facility] Blood Gas Source Venous [facility] Blood Venous Draw / Unknown 07/07/2022 7:10 AM EDT 07/07/2022 7:18 AM EDT Narrative Resulting Agency Comment Spec In Lab Mayank Kang MD CHEMISTRY ORDERABLES [facility] [place] [address] * Scan, Peripheral Blood (07/07/2022 3:41 AM EDT) Plat estimate Normal [facility] RBC Morphology Abnormal [facility] Macrocyte 1-5 /HPF [facility] Microcyte 6-10 /HPF [facility] Hypochromia Slight [facility] Ovalocytes 1-5 /HPF [facility] Plat, Giant Less than 1 /HPF [facility] Blood 07/07/2022 3:41 AM EDT 07/07/2022 3:46 AM EDT Narrative Resulting Agency Comment Spec In Lab Hollie Perez MD HEMATOLOGY ORDERABL ES Performing Organization Address City/[facility]/[place] [address] * (ABNORMAL) Differential, Automated (07/07/2022 3:41 AM EDT) Neutrophil % 40.9 % [facility] Neutrophil Absolute 1.54(L) 1.70 - 6.10 x10(3)/mc L [facility] Lymph % 49.7 % [facility] Lymphocytes Abs 1.9 0.9 - 3.2 x10(3)/mc L [facility] Monocyte % 6.3 % [facility] Monocyte Abs 0.2(L) 0.3 - 0.9 x10(3)/mc L [facility] Eos % 2.1 % [facility] Eosinophils Abs 0.1 0.0 - 0.4 x10(3)/mc L [facility] Basophil % 0.5 % [facility] Baso Absolute 0.0 0.0 - 0.1 x10(3)/mc L [facility] Immature Gran % 0.50 % [facility] Comment: Immature granulocytes(IG's)percentage and absolute count will include metamyelocytes, myelocytes, and promyelocytes. Blood smears from CBCs yielding IG's will be scanned manually for concordance. If this scan disagrees with the automated IG or if promyelocytes are noted, a manual differential will be performed. Immature Gran Absolute 0.02 0.00 - 0.04 x10(3)/mc L [facility] Blood 07/07/2022 3:41 AM EDT 07/07/2022 3:46 AM EDT Narrative Resulting Agency Comment Spec In Lab Hollie Perez MD HEMATOLOGY ORDERABL ES Performing Organization Address City/[facility]/[place] [address] * (ABNORMAL) Hemogram (07/07/2022 3:41 AM EDT) White Blood Cell 3.8(L) 4.0 - 9.5 x10(3)/mc L [facility] Red Blood Cell 3.13(L) 4.00 - 5.21 x10(6)/mc L [facility] Hemoglobin 7.6(L) 11.7 - 15.5 g/dL [facility] Hematocrit 25.5(L) 35.7 - 45.8 % [facility] Mean Cell Volume 81.5(L) 82.6 - 94.4 fL [facility] Mean Cell Hemoglobin 24.3(L) 27.1 - 32.0 pg [facility] Mean Cell Hemoglobin Concentration 29.8(L) 31.7 - 35.0 g/dL [facility] Platelet 281 145 - 357 x10(3)/mc L [facility] RDW Standard Deviation 56.9(H) 37.0 - 46.0 fL [facility] RDW coefficient of variation 19.5(H) 11.5 - 14.1 % [facility] Mean Platelet Volume 9.5 7.6 - 12.9 fL [facility] NRBC% auto 0.0 % [facility] NRBC Absolute 0.000 0.000 - 0.000 x10(3)/ L [facility] Blood 07/07/2022 3:41 AM EDT 07/07/2022 3:46 AM EDT Narrative Resulting Agency Comment Spec In Lab Hollie Perez MD HEMATOLOGY ORDERABL ES Performing Organization Address City/State/[facility] Co de Phone Number [facility] [place] [address] * (ABNORMAL) Basic Metabolic Panel (non-fasting) (07/07/2022 3:41 AM EDT) Glucose 90 65 - 199 mg/dL [facility] Comment:Diabetes: >=200 mg/d L plus symptoms Blood Urea Nitrogen 5(L) 8 - 18 mg/dL [facility] Creatinine 0.23(L) 0.70 - 1.20 mg/dL [facility] Sodium 141 135 - 145 mmol/L [facility] Potassium 3.7 3.5 - 5.0 mmol/L [facility] Comment: Please note: ??Patients with WBC >100,000 may have falsely elevated Potassium levels. ??For accurate Potassium quantification in these patients send serum separator tube (gold top) for subsequent determinations. ??Contact the Clinical Chemistry Laboratory if there are any questions. Chloride 110(H) 98 - 107 mmol/L [facility] Carbon Dioxide 23 22 - 31 mmol/L [facility] Anion Gap 8 5 - 15 mmol/L [facility] Calcium 8.3(L) 8.5 - 10.5 mg/dL [facility] Est Glomerular Filtration Rate 157 >=60 mL/min/1. 73 m?? [facility] Comment: This patient's estimated GFR [...] MD CHEMISTRY ORDERABLE S Performing Organization Address [facility] Co de Phone Number [facility] [place] [address] * Blood culture (07/07/2022 3:41 AM EDT) Blood Culture No growth at 5 days. [facility] Blood 07/07/2022 3:41 AM EDT 07/07/2022 4:59 AM EDT Comment:L hand Narrative Resulting Agency Comment Spec In Lab Hollie Perez MD MICROBIOLOGY - BLOO D ORDERABLES Performing Organization Address [facility] Co de Phone Number [facility] [place] [address] * (ABNORMAL) Hepatic Function Panel (07/07/2022 3:41 AM EDT) Protein, Total 6.0(L) 6.1 - 8.0 g/dL [facility] Albumin 2.9(L) 3.2 - 5.2 g/dL [facility] Aspartate Aminotransferase 20 0 - 30 unit/L [facility] Alanine Aminotransferase 42(H) 0 - 30 unit/L [facility] Alkaline Phosphatase 177(H) 35 - 105 unit/L [facility] Bilirubin, Total <0.2(L) 0.2 - 1.3 mg/dL [facility] Bilirubin, Direct <0.1 0.0 - 0.3 mg/dL [facility] Blood 07/07/2022 3:41 AM EDT 07/07/2022 3:46 AM EDT Narrative Resulting Agency Comment Spec In Lab Hollie Perez MD CHEMISTRY ORDERABLE S Performing Organization Address [facility]/ZIP Co de Phone Number [facility] [place] [address] * (ABNORMAL) Hemoglobin and Hematocrit, blood (07/06/2022 6:40 PM EDT) Hemoglobin 8.5(L) 11.7 - 15.5 g/dL [facility] Hematocrit 26.4(L) 35.7 - 45.8 % [facility] Blood 07/06/2022 6:40 PM EDT 07/06/2022 6:46 PM EDT Narrative Resulting Agency Comment Spec In Lab Hollie Perez MD HEMATOLOGY ORDERABL ES Performing Organization Address [facility]/ZIP Co de Phone Number [facility] [place] [address] * Lactate, whole blood, send to lab ([facility] [place] [facility]) (07/06/2022 6:40 PM EDT) Lactate WB 0.6 0.5 - 2.2 mmol/L [facility] Blood 07/06/2022 6:40 PM EDT 07/06/2022 6:46 PM EDT Narrative Resulting Agency Comment Spec In Lab Hollie Perez MD CHEMISTRY ORDERABLE S Performing Organization Address [facility] Co de Phone Number [facility] [place] [address] * POCT Glucose (07/06/2022 5:36 PM EDT) Glucose, POC 86 65 - 199 mg/dL [facility] Comment: Supplemental ranges: <140 mg/dL before meals <180 mg/dL all other times of the day Blood 07/06/2022 5:36 PM EDT 07/06/2022 5:36 PM EDT Hollie Perez MD POINT OF CARE TEST ORDERABLES Performing Organization Address [facility] de Phone Number [facility] [place] [address] * (ABNORMAL) CRP, acute inflammation (07/06/2022 6:21 AM EDT) C-Reactive Protein 54.2(H) <=4.9 mg/L [facility] Blood Venous Draw / Unknown 07/06/2022 6:21 AM EDT 07/06/2022 7:28 AM EDT Narrative Resulting Agency Comment Spec In Lab Hollie Perez MD CHEMISTRY ORDERABLE S Performing Organization Address [facility] Co de Phone Number [facility] [place] [address] * (ABNORMAL) Basic Metabolic Panel (non-fasting) (07/06/2022 6:21 AM EDT) Glucose 80 65 - 199 mg/dL [facility] Comment:Diabetes: >=200 mg/d L plus symptoms Blood Urea Nitrogen 4(L) 8 - 18 mg/dL [facility] Creatinine 0.26(L) 0.70 - 1.20 mg/dL [facility] Sodium 138 135 - 145 mmol/L [facility] Potassium 3.6 3.5 - 5.0 mmol/L [facility] Comment: Please note: ??Patients with WBC >100,000 may have falsely elevated Potassium levels. ??For accurate Potassium quantification in these patients send serum separator tube (gold top) for subsequent determinations. ??Contact the Clinical Chemistry Laboratory if there are any questions. Chloride 104 98 - 107 mmol/L [facility] Carbon Dioxide Not Perf 22 - 31 [facility] Comment:Add-on request. Samp le too old to perform test. Anion Gap Unable to Calculate 5 - 15 mmol/L [facility] Calcium 8.6 8.5 - 10.5 mg/dL [facility] Est Glomerular Filtration Rate 152 >=60 mL/min/1 .73 m?? [facility] Comment: This patient's estimated GFR [...] ORDERABLE S Performing Organization Address City/[facility]/ZIP Co de Phone Number [facility] [place] [address] * Lavender Tube HOLD (07/06/2022 6:21 AM EDT) Lavender Hold Sample in lab. [facility] Blood Venous Draw / Unknown 07/06/2022 6:21 AM EDT 07/06/2022 6:28 AM EDT Hollie Perez MD HEMATOLOGY ORDERABL ES Performing Organization Address City/[facility]/ZIP Co de Phone Number [facility] [place] [address] * (ABNORMAL) Hepatic Function Panel (07/06/2022 6:21 AM EDT) Protein, Total 6.7 6.1 - 8.0 g/dL [facility] Albumin 3.2 3.2 - 5.2 g/dL [facility] Aspartate Aminotransferase 25 0 - 30 unit/L [facility] Alanine Aminotransferase 57(H) 0 - 30 unit/L [facility] Alkaline Phosphatase 199(H) 35 - 105 unit/L [facility] Bilirubin, Total 0.3 0.2 - 1.3 mg/dL [facility] Bilirubin, Direct 0.1 0.0 - 0.3 mg/dL [facility] Blood 07/06/2022 6:21 AM EDT 07/06/2022 6:27 AM EDT Narrative Resulting Agency Comment Spec In Lab Hollie Perez MD CHEMISTRY ORDERABLE S Performing Organization Address [facility] Co de Phone Number [facility] [place] [address] * Blood culture (07/06/2022 6:21 AM EDT) Blood Culture No growth at 5 days. [facility] Blood 07/06/2022 6:21 AM EDT 07/06/2022 11:05 AM EDT Comment:R Hand Narrative Resulting Agency Comment Spec In Lab Hollie Perez MD MICROBIOLOGY - BLOO D ORDERABLES Performing Organization Address [facility] [place] [address] * CT Abdomen & Pelvis w Contrast [...] who have questions please contact the health early breastfeeding care specialist that requested your imaging first. ? Narrative 07/05/2022 5:38 PM EST EXAMINATION: CT [...] administration of contrast. Administered 66.0 ml of [id number] mg/ml. Oral contrast administered. COMPARISON: CT lumbar [...] patients who have questions please contactthe health early breastfeeding care specialist that requested your imaging first. Hollie Perez MD IMG CT ORDERABLES * Scan, Peripheral Blood (07/05/2022 5:31 AM EST) Pathologist [facility] Plat estimate Normal [facility] RBC Morphology Abnormal [facility] Hypochromia Slight [facility] Blood 07/05/2022 5:31 AM EST 07/05/2022 5:43 AM EST Narrative Resulting Agency Comment Spec In Lab Ian Duarte MD HEMATOLOGY CLEO SALDANA [facility] [place] [address] * Bilirubin, Direct (07/05/2022 5:31 AM EST) Pathologist [facility] Bilirubin, Direct 0.1 0.0 - 0.3 mg/dL [facility] Blood 07/05/2022 5:31 AM EST 07/05/2022 5:43 AM EST Narrative Resulting Agency Comment Spec In Lab Hollie Perez MD CHEMISTRY ORDERABLE S Performing Organization Address City/[facility]/[place] [address] * (ABNORMAL) Differential, Automated (07/05/2022 5:31 AM EST) Neutrophil % 41.2 % [facility] Neutrophil Absolute 1.39(L) 1.70 - 6.10 x10(3)/mc L [facility] Lymph % 45.4 % [facility] Lymphocytes Abs 1.5 0.9 - 3.2 x10(3)/mc L [facility] Monocyte % 11.6 % [facility] Monocyte Abs 0.4 0.3 - 0.9 x10(3)/mc L [facility] Eos % 0.6 % [facility] Eosinophils Abs 0.0 0.0 - 0.4 x10(3)/mc L [facility] Basophil % 0.6 % [facility] Baso Absolute 0.0 0.0 - 0.1 x10(3)/mc L [facility] Immature Gran % 0.60 % [facility] Comment: Immature granulocytes(IG's)percentage and absolute count will include metamyelocytes, myelocytes, and promyelocytes. Blood smears from CBCs yielding IG's will be scanned manually for concordance. If this scan disagrees with the automated IG or if promyelocytes are noted, a manual differential will be performed. Immature Gran Absolute 0.02 0.00 - 0.04 x10(3)/mc L [facility] Blood 07/05/2022 5:31 AM EST 07/05/2022 5:43 AM EST Narrative Resulting Agency Comment Spec In Lab Ian Duarte MD HEMATOLOGY ORDArthur SALDANA Performing Organization Address City/[facility]/[place] [address] * (ABNORMAL) Hemogram (07/05/2022 5:31 AM EST) White Blood Cell 3.4(L) 4.0 - 9.5 x10(3)/mc L [facility] Red Blood Cell 3.20(L) 4.00 - 5.21 x10(6)/mc L [facility] Hemoglobin 7.7(L) 11.7 - 15.5 g/dL [facility] Hematocrit 25.4(L) 35.7 - 45.8 % [facility] Mean Cell Volume 79.4(L) 82.6 - 94.4 fL [facility] Mean Cell Hemoglobin 24.1(L) 27.1 - 32.0 pg [facility] Mean Cell Hemoglobin Concentration 30.3(L) 31.7 - 35.0 g/dL [facility] Platelet 240 145 - 357 x10(3)/mc L [facility] RDW Standard Deviation 56.9(H) 37.0 - 46.0 fL [facility] RDW coefficient of variation 19.7(H) 11.5 - 14.1 % [facility] Mean Platelet Volume 9.5 7.6 - 12.9 fL [facility] NRBC% auto 0.0 % [facility] NRBC Absolute 0.000 0.000 - 0.000 x10(3)/ L [facility] Blood 07/05/2022 5:31 AM EST 07/05/2022 5:43 AM EST Narrative Resulting Agency Comment Spec In Lab Ian Duarte MD HEMATOLOGY CLEO SALDANA [facility] [place] [address] * (ABNORMAL) Comprehensive metabolic panel (non-fasting) (07/05/2022 5:31 AM EST) Glucose 85 65 - 199 mg/dL [facility] Comment:Diabetes: >=200 mg/d L plus symptoms Blood Urea Nitrogen 6(L) 8 - 18 mg/dL [facility] Creatinine 0.29(L) 0.70 - 1.20 mg/dL [facility] Sodium 142 135 - 145 mmol/L [facility] Potassium 3.8 3.5 - 5.0 mmol/L [facility] Comment: Please note: ??Patients with WBC >100,000 may have falsely elevated Potassium levels. ??For accurate Potassium quantification in these patients send serum separator tube (gold top) for subsequent determinations. ??Contact the Clinical Chemistry Laboratory if there are any questions. Chloride 108(H) 98 - 107 mmol/L [facility] Carbon Dioxide 25 22 - 31 mmol/L [facility] Anion Gap 9 5 - 15 mmol/L [facility] Calcium 8.4(L) 8.5 - 10.5 mg/dL [facility] Protein, Total 5.9(L) 6.1 - 8.0 g/dL [facility] Albumin 3.1(L) 3.2 - 5.2 g/dL [facility] Aspartate Aminotransferase 39(H) 0 - 30 unit/L [facility] Alanine Aminotransferase 74(H) 0 - 30 unit/L [facility] Alkaline Phosphatase 209(H) 35 - 105 unit/L [facility] Bilirubin, Total 0.4 0.2 - 1.3 mg/dL [facility] Est Glomerular Filtration Rate 148 >=60 mL/min/1. 73 m?? [facility] Comment: This patient's estimated GFR [...] Lab Ian Duarte MD CHEMISTRY ORDER MYRANDA [facility] [place] [address] * IR All Drainage Procedures (07/04/2022 4:14 PM EST) Anatomical Region Laterality Modality X-Ray Angiograph y Narrative 07/04/2022 4:52 PM EST Preoperative Diagnosis: re accumulated Lumbar collection by CT, Fevers Postoperative Diagnosis: ?? Same Procedure Performed: Ultrasound and fluoroscopically guided drain placement. Operators: Mich Martino MD, Attending Estimated Blood Loss: Negligible. Fluoroscopy dose: ??Please see [facility] IR technologist record for procedural dose/time. Cefazolin/ [...] dilated over the wire and a 8.5 Nigerien drain was advanced over the wire into [...] (ABNORMAL) Differential, Automated (07/04/2022 6:07 AM EST) Neutrophil % 81.6 % [facility] Neutrophil Absolute 6.79(H) 1.70 - 6.10 x10(3)/mc L [facility] Lymph % 11.8 % [facility] Lymphocytes Abs 1.0 0.9 - 3.2 x10(3)/mc L [facility] Monocyte % 6.3 % [facility] Monocyte Abs 0.5 0.3 - 0.9 x10(3)/mc L [facility] Eos % 0.0 % [facility] Eosinophils Abs 0.0 0.0 - 0.4 x10(3)/mc L [facility] Basophil % 0.1 % [facility] Baso Absolute 0.0 0.0 - 0.1 x10(3)/mc L [facility] Immature Gran % 0.20 % [facility] Comment: Immature granulocytes(IG's)percentage and absolute count will include metamyelocytes, myelocytes, and promyelocytes. Blood smears from CBCs yielding IG's will be scanned manually for concordance. If this scan disagrees with the automated IG or if promyelocytes are noted, a manual differential will be performed. Immature Gran Absolute 0.02 0.00 - 0.04 x10(3)/mc L [facility] Blood 07/04/2022 6:07 AM EST 07/04/2022 6:14 AM EST Narrative Resulting Agency Comment Spec In Lab Ian Duarte MD HEMATOLOGY CLEO SALDANA [facility] [place] [address] * (ABNORMAL) Hemogram (07/04/2022 6:07 AM EST) White Blood Cell 8.3 4.0 - 9.5 x10(3)/mc L [facility] Red Blood Cell 3.38(L) 4.00 - 5.21 x10(6)/mc L [facility] Hemoglobin 8.3(L) 11.7 - 15.5 g/dL [facility] Hematocrit 26.0(L) 35.7 - 45.8 % [facility] Mean Cell Volume 76.9(L) 82.6 - 94.4 fL [facility] Mean Cell Hemoglobin 24.6(L) 27.1 - 32.0 pg [facility] Mean Cell Hemoglobin Concentration 31.9 31.7 - 35.0 g/dL [facility] Platelet 244 145 - 357 x10(3)/mc L [facility] RDW Standard Deviation 54.5(H) 37.0 - 46.0 fL [facility] RDW coefficient of variation 19.5(H) 11.5 - 14.1 % [facility] Mean Platelet Volume 9.3 7.6 - 12.9 fL [facility] NRBC% auto 0.0 % [facility] NRBC Absolute 0.000 0.000 - 0.000 x10(3)/mc L [facility] Blood 07/04/2022 6:07 AM EST 07/04/2022 6:14 AM EST Narrative Resulting Agency Comment Spec In Lab Ian Duarte MD HEMATOLOGY CLEO SALDANA Performing Organization Address City/State/[facility] Co de Phone Number [facility] [place] [address] * Lactate, whole blood, send to lab ([facility] [place]) (07/04/2022 6:07 AM EST) Lactate WB 1.9 0.5 - 2.2 mmol/L [facility] Blood 07/04/2022 6:07 AM EST 07/04/2022 6:14 AM EST Narrative Resulting Agency Comment Spec In Lab Yury Saavedra MD CHEMISTRY ORDERABLE S Performing Organization Address [facility] Co de Phone Number [facility] [place] [address] * (ABNORMAL) Basic Metabolic Panel (non-fasting) (07/04/2022 6:07 AM EST) Glucose 114 65 - 199 mg/dL [facility] Comment:Diabetes: >=200 mg/d L plus symptoms Blood Urea Nitrogen 8 8 - 18 mg/dL [facility] Creatinine 0.34(L) 0.70 - 1.20 mg/dL [facility] Sodium 134(L) 135 - 145 mmol/L [facility] Potassium 4.1 3.5 - 5.0 mmol/L [facility] Comment: Please note: ??Patients with WBC >100,000 may have falsely elevated Potassium levels. ??For accurate Potassium quantification in these patients send serum separator tube (gold top) for subsequent determinations. ??Contact the Clinical Chemistry Laboratory if there are any questions. Chloride 100 98 - 107 mmol/L [facility] Carbon Dioxide 24 22 - 31 mmol/L [facility] Anion Gap 10 5 - 15 mmol/L [facility] Calcium 8.4(L) 8.5 - 10.5 mg/dL [facility] Est Glomerular Filtration Rate 143 >=60 mL/min/1. 73 m?? [facility] Comment: This patient's estimated GFR [...] MD CHEMISTRY ORDER MYRANDA Performing Organization Address City/[facility]/ZIP Co de Phone Number [facility] [place] [address] * (ABNORMAL) Urinalysis Microscopic Exam (07/04/2022 3:05 AM EST) RBC, Urine 2 0 - 4 /HPF [facility] WBC, Urine 2 0 - 5 /HPF [facility] Squamous Epithelial Cells Raw Data, Urine 6(H) <=4 /HPF [facility] Triple Phosphate Crystal, Urine Occasional (A) None /HPF [facility] Clean Catch Urine 07/04/2022 3:05 AM EST 07/04/2022 3:10 AM EST Narrative Resulting Agency Comment Spec In Lab Yury Saavedra MD URINE ORDERABLES Performing Organization Address [facility] Co de Phone Number [facility] [place] [address] * (ABNORMAL) Urinalysis with reflex Culture (07/04/2022 3:05 AM EST) Glucose, Urine Dipstick Negative Negative mg/dL [facility] Protein, Urine Dipstick 30(A) Negative mg/dL [facility] Bilirubin, Urine Dipstick Negative Negative mg/dL [facility] Comment: Clinical correlation required for positive Urine Bilirubin results as false positive may occur with some drugs and drug related products. If a false positive is suspected a serum total bilirubin should be considered if clinically indicated. Urobilinogen, Urine Dipstick Normal Normal mg/dL [facility] pH, Urn (dipstick) 8.0 5.0 - 8.0 [facility] Blood, Urine Dipstick Negative Negative mg/dL [facility] Ketone, Urine Dipstick Negative Negative mg/dL [facility] Nitrite, Urine Dipstick Negative Negative [facility] Leukocytes, Urine Dipstick Trace(A) Negative [facility] Appearance, Urine Dipstick Cloudy(A) Clear [facility] Specific Panther Burn Urine Automated >=1.030(A) 1.005 - 1.030 [facility] Color, Urine Dipstick Dark Yellow Yellow [facility] Reflex to Culture No [facility] Clean Catch Urine 07/04/2022 3:05 AM EST 07/04/2022 3:10 AM EST Narrative Resulting Agency Comment Spec In Lab Yury Saavedra MD URINE ORDERABLES Performing Organization Address City/[facility]/ZIP Co de Phone Number [facility] [place] [address] * (ABNORMAL) Lactate, whole blood, send to lab ([facility] [place] [place] [place]) (07/04/2022 12:50 AM EST) Lactate WB 2.6(H) 0.5 - 2.2 mmol/L [facility] Blood 07/04/2022 12:5 0 AM EST 07/04/2022 1:02 AM EST Narrative Resulting Agency Comment Spec In Lab Yury Saavedra MD CHEMISTRY ORDERABLE S Performing Organization Address [facility] Co de Phone Number [facility] [place] [address] * EKG 12 Lead (07/04/2022 12:16 AM EST) Ventricular rate 152 BPM MUSE SYSTEM Atrial Rate 152 BPM MUSE SYSTEM P-R Interval 112 ms MUSE SYSTEM QRS Duration 66 ms MUSE SYSTEM Q-T Interval 328 ms MUSE SYSTEM QTC Calculated (Bezet) 521 ms MUSE SYSTEM Calculated P [place] 13 degrees MUSE SYSTEM Calculated R [place] 7 degrees MUSE SYSTEM Calculated T [place] 54 degrees MUSE SYSTEM INTERPRETATION Sinus tachycardia Nonspecific T wave abnormality Abnormal ECG When compared with ECG of 01-JUL-2022 14:17, No significant change was found I personally reviewed the tracing and edited the fellows interpretation Confirmed by fellow Ravinder Garcia ([id number]) on 07/07/2022 4:08:27 AM Confirmed by MD CONTRERAS SALVATORE ([id number]) on 07/07/2022 10:33:36 AM MUSE SYSTEM 07/04/2022 12:1 6 AM EST 07/07/2022 10:33 AM EDT Yury Saavedra MD ECG ORDERABLES Performing Organization Address City/[facility]/ZIP Co de Phone Number MUSE SYSTEM * Lavender Tube HOLD (07/03/2022 11:05 PM EST) Lavender Hold Sample in lab. [facility] Blood Venous Draw / Unknown 07/03/2022 11:05 PM EST 07/03/2022 11:14 PM EST Yury Saavedra MD HEMATOLOGY ORDERABL ES Performing Organization Address [facility] Co de Phone Number [facility] [place] [address] * (ABNORMAL) CRP, acute inflammation (07/03/2022 11:05 PM EST) C-Reactive Protein 73.7(H) <=4.9 mg/L [facility] Blood 07/03/2022 11:0 5 PM EST 07/03/2022 11:14 PM EST Narrative Resulting Agency Comment Spec In Lab Yury Saavedra MD CHEMISTRY ORDERABLE S Performing Organization Address [facility] Co de Phone Number [facility] [place] [address] * (ABNORMAL) Blood culture (07/03/2022 11:05 PM EST) Blood Culture Escherichia coli detected by PCR Isolate saved. If future testing is required, contact the Microbiology Application Performance Engineer. (A) [facility] Gram Stain Anaerobic Growth detected in anaerobic bottle. Gram Negative Rods seen Results called to and read back by Zoila Rincon RN (A) [facility] Organism Escherichia coli(A) [facility] Organism Gram Negative Rods(A) [facility] Blood STRUCTURE OF RIGHT HAND [...] - BLOO D ORDERABLES Performing Organization Address City/[facility] Co de Phone Number [facility] [place] [address] * Blood culture (07/03/2022 10:45 PM EST) Blood Culture No growth at 5 days. [facility] Blood STRUCTURE OF LEFT HAND / Unknown 07/03/2022 10:45 PM EST 07/04/2022 Narrative Resulting Agency Comment Spec In Lab Yury Saavedra MD MICROBIOLOGY - BLOO D ORDERABLES Performing Organization Address [facility] Co de Phone Number [facility] [place] [address] * CT Lumbar Spine w Contrast (07/03/2022 [...] who have questions please contact the health early breastfeeding care specialist that requested your imaging first. [...] patients who have questions please contactthe health early breastfeeding care specialist that requested your imaging first. Ian Duarte MD [facility] CT ORDERABL ES * (ABNORMAL) Differential, Automated (07/03/2022 10:08 AM EST) Neutrophil % 50.0 % [facility] Neutrophil Absolute 1.61(L) 1.70 - 6.10 x10(3)/mc L [facility] Lymph % 37.0 % [facility] Lymphocytes Abs 1.2 0.9 - 3.2 x10(3)/mc L [facility] Monocyte % 10.9 % [facility] Monocyte Abs 0.4 0.3 - 0.9 x10(3)/mc L [facility] Eos % 0.9 % [facility] Eosinophils Abs 0.0 0.0 - 0.4 x10(3)/[facility] Basophil % 0.9 % [facility] Baso Absolute 0.0 0.0 - 0.1 x10(3)/[facility] Immature Gran % 0.30 % [facility] Comment: Immature granulocytes(IG's)percentage and absolute count will include metamyelocytes, myelocytes, and promyelocytes. Blood smears from CBCs yielding IG's will be scanned manually for concordance. If this scan disagrees with the automated IG or if promyelocytes are noted, a manual differential will be performed. Immature Gran Absolute 0.01 0.00 - 0.04 x10(3)/[facility] Blood 07/03/2022 10:0 8 AM EST 07/03/2022 10:19 AM EST Narrative Resulting Agency Comment Spec In Lab Ian Duarte MD HEMATOLOGY CLEO SALDANA [facility] [place] [address] * (ABNORMAL) Hemogram (07/03/2022 10:08 AM EST) White Blood Cell 3.2(L) 4.0 - 9.5 x10(3)/[facility] Red Blood Cell 4.08 4.00 - 5.21 x10(6)/ L [facility] Hemoglobin 9.9(L) 11.7 - 15.5 g/dL [facility] Hematocrit 32.2(L) 35.7 - 45.8 % [facility] Mean Cell Volume 78.9(L) 82.6 - 94.4 fL [facility] Mean Cell Hemoglobin 24.3(L) 27.1 - 32.0 pg [facility] Mean Cell Hemoglobin Concentration 30.7(L) 31.7 - 35.0 g/dL [facility] Platelet 307 145 - 357 x10(3)/mc L [facility] RDW Standard Deviation 53.3(H) 37.0 - 46.0 fL [facility] RDW coefficient of variation 19.0(H) 11.5 - 14.1 % [facility] Mean Platelet Volume 9.2 7.6 - 12.9 fL [facility] NRBC% auto 0.0 % [facility] NRBC Absolute 0.000 0.000 - 0.000 x10(3)/mc L [facility] Blood 07/03/2022 10:0 8 AM EST 07/03/2022 10:19 AM EST Narrative Resulting Agency Comment Spec In Lab Ian Duarte MD HEMATOLOGY CLEO SALDANA Performing Organization Address City/[facility] [place] [address] * (ABNORMAL) Sedimentation rate (07/03/2022 10:08 AM EST) Sedimentation Rate Automated 110(H) 2 - 37 mm/hr [facility] Comment: Effective April 06, 2019 new capillary photometric technology has resulted in a change in reference ranges. It is recommended that each ESR result be reviewed with its own age appropriate reference range. Blood 07/03/2022 10:0 8 AM EST 07/03/2022 10:19 AM EST Narrative Resulting Agency Comment Spec In Lab Ian Duarte MD HEMATOLOGY CLEO SALDANA Performing Organization Address [facility] Co de Phone Number [facility] [place] [address] * XR Chest One View (07/02/2022 5:04 [...] who have questions please contact the health early breastfeeding care specialist that requested your imaging first. [...] patients who have questions please contactthe health early breastfeeding care specialist that requested your imaging first. Ian Duarte MD IMG DX ORDERABL ES * (ABNORMAL) Urinalysis Microscopic Exam (07/02/2022 3:35 PM EST) RBC, Urine 7(H) 0 - 4 /HPF [facility] WBC, Urine 3 0 - 5 /HPF [facility] Squamous Epithelial Cells Raw Data, Urine 4 <=4 /HPF [facility] Hyaline Casts, Urine 3(H) 0 - 2 /LPF [facility] Straight Catheter Urine 07/02/2022 3:35 PM EST 07/02/2022 4:10 PM EST Narrative Resulting Agency Comment Spec In Lab Ian Duarte MD URINE ORDERABLE S [facility] [place] [address] * (ABNORMAL) Urinalysis with reflex Culture (07/02/2022 3:35 PM EST) Glucose, Urine Dipstick Negative Negative mg/dL [facility] Protein, Urine Dipstick Negative Negative mg/dL [facility] Bilirubin, Urine Dipstick Negative Negative mg/dL [facility] Comment: Clinical correlation required for positive Urine Bilirubin results as false positive may occur with some drugs and drug related products. If a false positive is suspected a serum total bilirubin should be considered if clinically indicated. Urobilinogen, Urine Dipstick Normal Normal mg/dL [facility] pH, Urn (dipstick) 7.5 5.0 - 8.0 [facility] Blood, Urine Dipstick Trace(A) Negative mg/dL [facility] Ketone, Urine Dipstick Negative Negative mg/dL [facility] Nitrite, Urine Dipstick Negative Negative [facility] Leukocytes, Urine Dipstick Negative Negative mcL [facility] Appearance, Urine Dipstick Clear Clear [facility] Specific Panther Burn Urine Automated 1.016 1.005 - 1.030 [facility] Color, Urine Dipstick Yellow Yellow [facility] Reflex to Culture No [facility] Straight Catheter Urine 07/02/2022 3:35 PM EST 07/02/2022 4:10 PM EST Narrative Resulting Agency Comment Spec In Lab Ian Duarte [place] [address] * Differential, Automated (07/02/2022 6:15 AM EST) Neutrophil % 57.6 % [facility] Neutrophil Absolute 1.89 1.70 - 6.10 x10(3)/[facility] Lymph % 32.3 % [facility] Lymphocytes Abs 1.1 0.9 - 3.2 x10(3)/[facility] Monocyte % 9.5 % [facility] Monocyte Abs 0.3 0.3 - 0.9 x10(3)/[facility] Eos % 0.0 % [facility] Eosinophils Abs 0.0 0.0 - 0.4 x10(3)/[facility] Basophil % 0.3 % [facility] Baso Absolute 0.0 0.0 - 0.1 x10(3)/[facility] Immature Gran % 0.30 % [facility] Comment: Immature granulocytes(IG's)percentage and absolute count will include metamyelocytes, myelocytes, and promyelocytes. Blood smears from CBCs yielding IG's will be scanned manually for concordance. If this scan disagrees with the automated IG or if promyelocytes are noted, a manual differential will be performed. Immature Gran Absolute 0.01 0.00 - 0.04 x10(3)/[facility] LABORATORY Blood 07/02/2022 6:15 AM EST 07/02/2022 6:49 AM EST Narrative Resulting Agency Comment Spec In Lab Ian Duarte MD HEMATOLOGY ORDE RABLES [facility] [place] [address] * (ABNORMAL) Hemogram (07/02/2022 6:15 AM EST) White Blood Cell 3.3(L) 4.0 - 9.5 x10(3)/mc L [facility] Red Blood Cell 3.98(L) 4.00 - 5.21 x10(6)/mc L [facility] Hemoglobin 9.6(L) 11.7 - 15.5 g/dL [facility] Hematocrit 30.7(L) 35.7 - 45.8 % [facility] Mean Cell Volume 77.1(L) 82.6 - 94.4 fL [facility] Mean Cell Hemoglobin 24.1(L) 27.1 - 32.0 pg [facility] Mean Cell Hemoglobin Concentration 31.3(L) 31.7 - 35.0 g/dL [facility] Platelet 336 145 - 357 x10(3)/mc L [facility] RDW Standard Deviation 51.1(H) 37.0 - 46.0 fL [facility] RDW coefficient of variation 18.6(H) 11.5 - 14.1 % [facility] Mean Platelet Volume 9.1 7.6 - 12.9 fL [facility] NRBC% auto 0.0 % [facility] NRBC Absolute 0.000 0.000 - 0.000 x10(3)/mc L [facility] Blood 07/02/2022 6:15 AM EST 07/02/2022 6:49 AM EST Narrative Resulting Agency Comment Spec In Lab Ian Duarte MD HEMATOLOGY ORDE [facility] [place] [address] * TSH [place] (07/02/2022 6:15 AM EST) Thyroid Stimulating Hormone 1.45 0.27 - 4.20 mcIU/mL [facility] Comment: Reference Interval (mcIU/mL): Females: ??First Trimester: 0.23-3.88 ??Second Trimester: 0.22-3.90 ??Third Trimester: 0.44-4.66 Blood 07/02/2022 6:15 AM EST 07/02/2022 6:49 AM EST Narrative Resulting Agency Comment Spec In Lab Ian Duarte MD CHEMISTRY ORDER MYRANAD Performing Organization Address [facility] Co de Phone Number [facility] [place] [address] * (ABNORMAL) Basic Metabolic Panel (non-fasting) (07/02/2022 6:15 AM EST) Glucose 91 65 - 199 mg/dL [facility] Comment:Diabetes: >=200 mg/d L plus symptoms Blood Urea Nitrogen 5(L) 8 - 18 mg/dL [facility] Creatinine 0.24(L) 0.70 - 1.20 mg/dL [facility] Sodium 134(L) 135 - 145 mmol/L [facility] Potassium 4.0 3.5 - 5.0 mmol/L [facility] Comment: Please note: ??Patients with WBC >100,000 may have falsely elevated Potassium levels. ??For accurate Potassium quantification in these patients send serum separator tube (gold top) for subsequent determinations. ??Contact the Clinical Chemistry Laboratory if there are any questions. Chloride 100 98 - 107 mmol/L [facility] Carbon Dioxide 24 22 - 31 mmol/L [facility] Anion Gap 10 5 - 15 mmol/L [facility] Calcium 8.7 8.5 - 10.5 mg/dL [facility] Est Glomerular Filtration Rate 155 >=60 mL/min/1. 73 m?? [facility] Comment: This patient's estimated GFR [...] MD CHEMISTRY ORDER MYRANDA Performing Organization Address City/[facility]/ZIP Co de Phone Number [facility] [place] [address] * (ABNORMAL) Sedimentation rate (07/02/2022 6:15 AM EST) Sedimentation Rate Automated 89(H) 2 - 37 mm/hr [facility] Comment: Effective April 06, 2019 new capillary photometric technology has resulted in a change in reference ranges. It is recommended that each ESR result be reviewed with its own age appropriate reference range. Blood 07/02/2022 6:15 AM EST 07/02/2022 6:49 AM EST Narrative Resulting Agency Comment Spec In Lab Ian Duarte MD HEMATOLOGY ORDE RABLES Performing Organization Address City/[facility]/ZIP Co de Phone Number [facility] [place] [address] * Blood culture (07/01/2022 8:21 PM EST) Pathologist [facility] Blood Culture No growth at 5 days. [facility] Blood 07/01/2022 8:21 PM EST 07/01/2022 8:57 PM EST Comment:RH Narrative Resulting Agency Comment Spec In Lab Ian Duarte MD MICROBIOLOGY - BLOOD ORDERABLES Performing Organization Address [facility] Co de Phone Number [facility] [place] [address] * Magnesium (07/01/2022 6:14 PM EST) Pathologist [facility] Magnesium 0.74 0.69 - 1.07 mmol/L [facility] Blood 07/01/2022 6:14 PM EST 07/01/2022 6:21 PM EST Narrative Resulting Agency Comment Spec In Lab Ian Duarte MD CHEMISTRY ORDER MYRANDA Performing Organization Address [facility] Co de Phone Number [facility] [place] [address] * Lactate, whole blood, send to lab ([facility] [place]/[facility]) (07/01/2022 6:14 PM EST) Pathologist [facility] Lactate WB 1.7 0.5 - 2.2 mmol/L [facility] Blood 07/01/2022 6:14 PM EST 07/01/2022 6:21 PM EST Narrative Resulting Agency Comment Spec In Lab Ian Duarte MD CHEMISTRY ORDER MYRANDA [facility] [place] [address] * IR Drain Check/Change/Remove (07/01/2022 3:35 PM [...] sterile barrier technique was used throughout. ?? Terminal Superintendent fluoroscopic images were obtained. ??Contrast was injected [...] (Bezet) 443 ms MUSE SYSTEM Calculated P [place] 37 degrees MUSE SYSTEM Calculated R [place] 62 degrees MUSE SYSTEM Calculated T [place] 19 degrees MUSE SYSTEM INTERPRETATION Sinus tachycardia Nonspecific T wave abnormality Otherwise normal ECG When compared with ECG of 29-JUN-2022 08:55, No significant change was found Confirmed by Lyndon Lafleur ([id number]) on 07/02/2022 5:10:53 PM MUSE SYSTEM 07/01/2022 2:17 PM EST 07/02/2022 5:10 PM EST Ian Duarte MD ECG ORDERABLES MUSE SYSTEM * Differential, Automated (07/01/2022 5:50 AM EST) Neutrophil % 75.5 % [facility] Neutrophil Absolute 4.41 1.70 - 6.10 x10(3)/mcL [facility] Lymph % 15.0 % [facility] Lymphocytes Abs 0.9 0.9 - 3.2 x10(3)/[facility] LABORATORY Monocyte % 7.7 % [facility] Monocyte Abs 0.4 0.3 - 0.9 x10(3)/[facility] LABORATORY Eos % 1.0 % [facility] Eosinophils Abs 0.1 0.0 - 0.4 x10(3)/[facility] LABORATORY Basophil % 0.5 % [facility] Baso Absolute 0.0 0.0 - 0.1 x10(3)/[facility] LABORATORY Immature Gran % 0.30 % [facility] Comment: Immature granulocytes(IG's)percentage and absolute count will include metamyelocytes, myelocytes, and promyelocytes. Blood smears from CBCs yielding IG's will be scanned manually for concordance. If this scan disagrees with the automated IG or if promyelocytes are noted, a manual differential will be performed. Immature Gran Absolute 0.02 0.00 - 0.04 x10(3)/[facility] LABORATORY Blood 07/01/2022 5:50 AM EST 07/01/2022 6:17 AM EST Narrative Resulting Agency Comment Spec In Lab Estevan Alfaro MD HEMATOLOGY ORDERABLE S [facility] [place] [address] * (ABNORMAL) Hemogram (07/01/2022 5:50 AM EST) White Blood Cell 5.8 4.0 - 9.5 x10(3)/mc L [facility] Red Blood Cell 3.84(L) 4.00 - 5.21 x10(6)/mc L [facility] Hemoglobin 9.3(L) 11.7 - 15.5 g/dL [facility] Hematocrit 29.6(L) 35.7 - 45.8 % [facility] Mean Cell Volume 77.1(L) 82.6 - 94.4 fL [facility] Mean Cell Hemoglobin 24.2(L) 27.1 - 32.0 pg [facility] Mean Cell Hemoglobin Concentration 31.4(L) 31.7 - 35.0 g/dL [facility] Platelet 352 145 - 357 x10(3)/mc L [facility] RDW Standard Deviation 51.2(H) 37.0 - 46.0 fL [facility] RDW coefficient of variation 18.6(H) 11.5 - 14.1 % [facility] Mean Platelet Volume 9.3 7.6 - 12.9 fL [facility] NRBC% auto 0.0 % [facility] NRBC Absolute 0.000 0.000 - 0.000 x10(3)/mc L [facility] Blood 07/01/2022 5:50 AM EST 07/01/2022 6:17 AM EST Narrative Resulting Agency Comment Spec In Lab Estevan Alfaro MD HEMATOLOGY ORDERABLE S [facility] [place] [address] * (ABNORMAL) CRP, acute inflammation (07/01/2022 5:50 AM EST) C-Reactive Protein 53.1(H) <=4.9 mg/L [facility] Comment:result rechecked-KS Blood 07/01/2022 5:50 AM EST 07/01/2022 6:17 AM EST Narrative Resulting Agency Comment Spec In Lab Ian Duarte MD CHEMISTRY ORDER MYRANDA [facility] [place] [address] * (ABNORMAL) Sedimentation rate (07/01/2022 5:50 AM EST) Sedimentation Rate Automated >119(H) 2 - 37 mm/hr [facility] Comment: Effective April 06, 2019 new capillary photometric technology has resulted in a change in reference ranges. It is recommended that each ESR result be reviewed with its own age appropriate reference range. Blood 07/01/2022 5:50 AM EST 07/01/2022 6:17 AM EST Narrative Resulting Agency Comment Spec In Lab Ian Duarte [facility] [place] [address] * (ABNORMAL) BMP w/fasting Glucose (07/01/2022 5:50 AM EST) Glucose Fasting 95 65 - 99 mg/dL [facility] Comment: ?Fasting* Glucose Interpretive Criteria Normal [...] of Diabetes Mellitus, Position Statement from the [place] [employer]. ??Diabetes Care, Volume 33, Supplement 1, Apr 2009 Blood Urea Nitrogen 10 8 - 18 mg/dL [facility] Creatinine 0.25(L) 0.70 - 1.20 mg/dL [facility] Sodium 138 135 - 145 mmol/L [facility] Potassium 4.1 3.5 - 5.0 mmol/L [facility] Comment: Please note: ??Patients with WBC >100,000 may have falsely elevated Potassium levels. ??For accurate Potassium quantification in these patients send serum separator tube (gold top) for subsequent determinations. ??Contact the Clinical Chemistry Laboratory if there are any questions. Chloride 103 98 - 107 mmol/L [facility] Carbon Dioxide 24 22 - 31 mmol/L [facility] Anion Gap 11 5 - 15 mmol/L [facility] Calcium 9.0 8.5 - 10.5 mg/dL [facility] Est Glomerular Filtration Rate 154 >=60 mL/min/1. 73 m?? [facility] Comment: This patient's [...] In Lab Estevan Alfaro MD CHEMISTRY ORDERABLES [facility] [place] [address] * Differential, Automated (06/30/2022 4:29 AM EST) Neutrophil % 57.6 % [facility] Neutrophil Absolute 3.68 1.70 - 6.10 x10(3)/[facility] LABORATORY Lymph % 33.2 % [facility] Lymphocytes Abs 2.1 0.9 - 3.2 x10(3)/[facility] LABORATORY Monocyte % 7.0 % [facility] Monocyte Abs 0.4 0.3 - 0.9 x10(3)/[facility] LABORATORY Eos % 1.4 % [facility] Eosinophils Abs 0.1 0.0 - 0.4 x10(3)/[facility] LABORATORY Basophil % 0.5 % [facility] Baso Absolute 0.0 0.0 - 0.1 x10(3)/[facility] LABORATORY Immature Gran % 0.30 % [facility] Comment: Immature granulocytes(IG's)percentage and absolute count will include metamyelocytes, myelocytes, and promyelocytes. Blood smears from CBCs yielding IG's will be scanned manually for concordance. If this scan disagrees with the automated IG or if promyelocytes are noted, a manual differential will be performed. Immature Gran Absolute 0.02 0.00 - 0.04 x10(3)/[facility] LABORATORY Blood 06/30/2022 4:29 AM EST 06/30/2022 4:51 AM EST Narrative Resulting Agency Comment Spec In Lab Estevan Alfaro MD HEMATOLOGY ORDERABLE S [facility] [place] [address] * (ABNORMAL) Hemogram (06/30/2022 4:29 AM EST) White Blood Cell 6.4 4.0 - 9.5 x10(3)/ L [facility] Red Blood Cell 3.96(L) 4.00 - 5.21 x10(6)/mc L [facility] Hemoglobin 9.4(L) 11.7 - 15.5 g/dL [facility] Hematocrit 30.4(L) 35.7 - 45.8 % [facility] Mean Cell Volume 76.8(L) 82.6 - 94.4 fL [facility] Mean Cell Hemoglobin 23.7(L) 27.1 - 32.0 pg [facility] Mean Cell Hemoglobin Concentration 30.9(L) 31.7 - 35.0 g/dL [facility] Platelet 349 145 - 357 x10(3)/mc L [facility] RDW Standard Deviation 50.4(H) 37.0 - 46.0 fL [facility] RDW coefficient of variation 18.4(H) 11.5 - 14.1 % [facility] Mean Platelet Volume 9.3 7.6 - 12.9 fL [facility] NRBC% auto 0.0 % [facility] NRBC Absolute 0.000 0.000 - 0.000 x10(3)/[facility] LABORATORY Blood 06/30/2022 4:29 AM EST 06/30/2022 4:51 AM EST Narrative Resulting Agency Comment Spec In Lab Estevan Alfaro MD HEMATOLOGY ORDERABLE S [facility] [place] [address] * (ABNORMAL) BMP w/fasting Glucose (06/30/2022 4:29 AM EST) Glucose Fasting 86 65 - 99 mg/dL [facility] Comment: ?Fasting* Glucose Interpretive Criteria Normal [...] of Diabetes Mellitus, Position Statement from the [place] [employer]. ??Diabetes Care, Volume 33, Supplement 1, Apr 2009 Blood Urea Nitrogen 11 8 - 18 mg/dL [facility] Creatinine 0.22(L) 0.70 - 1.20 mg/dL [facility] Sodium 142 135 - 145 mmol/L [facility] Potassium 3.7 3.5 - 5.0 mmol/L [facility] Comment: Please note: ??Patients with WBC >100,000 may have falsely elevated Potassium levels. ??For accurate Potassium quantification in these patients send serum separator tube (gold top) for subsequent determinations. ??Contact the Clinical Chemistry Laboratory if there are any questions. Chloride 105 98 - 107 mmol/L [facility] Carbon Dioxide 25 22 - 31 mmol/L [facility] Anion Gap 12 5 - 15 mmol/L [facility] Calcium 8.9 8.5 - 10.5 mg/dL [facility] Est Glomerular Filtration Rate 159 >=60 mL/min/1. 73 m?? [facility] Comment: This patient's estimated GFR [...] Alfaro MD CHEMISTRY ORDERABLES Performing Organization Address City/[facility]/ZIP Co de Phone Number [facility] [place] [address] * EKG 12 Lead (06/29/2022 8:55 AM EST) Ventricular rate 112 BPM MUSE SYSTEM Atrial Rate 112 BPM MUSE SYSTEM P-R Interval 124 ms MUSE SYSTEM QRS Duration 78 ms MUSE SYSTEM Q-T Interval 336 ms MUSE SYSTEM QTC Calculated (Bezet) 458 ms MUSE SYSTEM Calculated P [place] 22 degrees MUSE SYSTEM Calculated R [place] 8 degrees MUSE SYSTEM Calculated T [place] 69 degrees MUSE SYSTEM INTERPRETATION Sinus tachycardia Nonspecific T wave abnormality Abnormal ECG When compared with ECG of 26-JUN-2022 20:46, Minimal criteria for Inferior infarct are no longer Present Nonspecific T wave abnormality, worse in Lateral leads Confirmed by MD Shabazz Danette ([id number]) on 06/29/2022 9:49:48 PM MUSE SYSTEM 06/29/2022 8:55 AM EST 06/29/2022 9:49 PM EST Estevan Alfaro MD ECG ORDERABLES Performing Organization Address City/[facility]/ZIP Co de Phone Number MUSE SYSTEM * TSH (06/29/2022 5:58 AM EST) Thyroid Stimulating Hormone 1.84 0.27 - 4.20 mcIU/mL [facility] Comment: Reference Interval (mcIU/mL): Females: ??First Trimester: 0.23-3.88 ??Second Trimester: 0.22-3.90 ??Third Trimester: 0.44-4.66 Blood Venous Draw / Unknown 06/29/2022 5:58 AM EST 06/29/2022 6:10 AM EST Narrative Resulting Agency Comment Spec In Lab Estevan Alfaro MD CHEMISTRY ORDERABLES [facility] [place] [address] * Magnesium (06/29/2022 5:58 AM EST) Magnesium 0.88 0.69 - 1.07 mmol/L [facility] Blood Venous Draw / Unknown 06/29/2022 5:58 AM EST 06/29/2022 6:10 AM EST Narrative Resulting Agency Comment Spec In Lab Estevan Alfaro MD CHEMISTRY ORDERABLES Performing Organization Address City/[facility]/[place] [address] * Differential, Automated (06/29/2022 5:58 AM EST) [facility] Neutrophil % 61.0 % [facility] Neutrophil Absolute 3.44 1.70 - 6.10 x10(3)/[facility] LABORATORY Lymph % 26.5 % [facility] Lymphocytes Abs 1.5 0.9 - 3.2 x10(3)/[facility] LABORATORY Monocyte % 9.0 % [facility] Monocyte Abs 0.5 0.3 - 0.9 x10(3)/[facility] LABORATORY Eos % 2.1 % [facility] Eosinophils Abs 0.1 0.0 - 0.4 x10(3)/[facility] Basophil % 0.9 % [facility] Baso Absolute 0.0 0.0 - 0.1 x10(3)/[facility] LABORATORY Immature Gran % 0.50 % [facility] Comment: Immature granulocytes(IG's)percentage and absolute count will include metamyelocytes, myelocytes, and promyelocytes. Blood smears from CBCs yielding IG's will be scanned manually for concordance. If this scan disagrees with the automated IG or if promyelocytes are noted, a manual differential will be performed. Immature Gran Absolute 0.03 0.00 - 0.04 x10(3)/[facility] LABORATORY Blood 06/29/2022 5:58 AM EST 06/29/2022 6:06 AM EST Narrative Resulting Agency Comment Spec In Lab Estevan Alfaro MD HEMATOLOGY ORDERABLE S Performing Organization Address City/[facility]/ZIP Co de Phone Number [place] [address] * (ABNORMAL) Hemogram (06/29/2022 5:58 AM EST) White Blood Cell 5.6 4.0 - 9.5 x10(3)/ L [facility] Red Blood Cell 4.11 4.00 - 5.21 x10(6)/ L [facility] Hemoglobin 9.8(L) 11.7 - 15.5 g/dL [facility] Hematocrit 31.7(L) 35.7 - 45.8 % [facility] Mean Cell Volume 77.1(L) 82.6 - 94.4 fL [facility] Mean Cell Hemoglobin 23.8(L) 27.1 - 32.0 pg [facility] Mean Cell Hemoglobin Concentration 30.9(L) 31.7 - 35.0 g/dL [facility] Platelet 345 145 - 357 x10(3)/ L [facility] RDW Standard Deviation 50.5(H) 37.0 - 46.0 fL [facility] RDW coefficient of variation 18.3(H) 11.5 - 14.1 % [facility] Mean Platelet Volume 9.2 7.6 - 12.9 fL [facility] NRBC% auto 0.0 % [facility] NRBC Absolute 0.000 0.000 - 0.000 x10(3)/[facility] LABORATORY Blood 06/29/2022 5:58 AM EST 06/29/2022 6:06 AM EST Narrative Resulting Agency Comment Spec In Lab Estevan Alfaro MD HEMATOLOGY ORDERABLE S [facility] [place] [address] * (ABNORMAL) BMP w/fasting Glucose (06/29/2022 5:58 AM EST) Glucose Fasting 90 65 - 99 mg/dL [facility] Comment: ?Fasting* Glucose Interpretive Criteria Normal [...] of Diabetes Mellitus, Position Statement from the [place] [employer]. ??Diabetes Care, Volume 33, Supplement 1, Apr 2009 Blood Urea Nitrogen 11 8 - 18 mg/dL [facility] Creatinine 0.25(L) 0.70 - 1.20 mg/dL [facility] Sodium 134(L) 135 - 145 mmol/L [facility] Potassium 4.1 3.5 - 5.0 mmol/L [facility] Comment: Please note: ??Patients with WBC >100,000 may have falsely elevated Potassium levels. ??For accurate Potassium quantification in these patients send serum separator tube (gold top) for subsequent determinations. ??Contact the Clinical Chemistry Laboratory if there are any questions. Chloride 102 98 - 107 mmol/L [facility] Carbon Dioxide 21(L) 22 - 31 mmol/L [facility] Anion Gap 11 5 - 15 mmol/L [facility] Calcium 9.0 8.5 - 10.5 mg/dL [facility] Est Glomerular Filtration Rate 154 >=60 mL/min/1. 73 m?? [facility] Comment: This patient's estimated GFR [...] In Lab Estevan Alfaro MD CHEMISTRY ORDERABLES [facility] [place] [address] * (ABNORMAL) Respiratory Panel PCR (06/28/2022 2:58 PM EST) Respiratory Panel Source HEAVY FORGER Swab [facility] Respiratory Panel PCR Positive(A) Negative [facility] Comment: Respiratory Panels are performed on the Cumed, using multiplexed PCR nucleic acid detection. ??Negative results do not preclude respiratory infection and should not be used as the sole basis for diagnosis, treatment or other management decisions. Adenovirus Not Detected Not Detected [facility] Coronavirus HKU1 Not Detected Not Detected [facility] Coronavirus NL63 Not Detected Not Detected [facility] Coronavirus 229E Not Detected Not Detected [facility] Coronavirus OC43 Not Detected Not Detected [facility] SARS-CoV-2 Not Detected Not Detected [facility] Comment: Testing for SARS-CoV-2 (Severe acute respiratory syndrome coronavirus 2) to aid in the diagnosis of COVID-19 is performed using the [employer] Respiratory Panel 2.1 (TouchPal) as authorized by the FDA issued Emergency Use Authorization (EUA). This panel also tests for multiple other viral and bacterial pathogens. This assay is intended for In-vitro Diagnostic (IVD) use with nasopharyngeal swabs in viral transport media. The assay is performed based on the instructions for use and additional guidance provided by the FDA. Testing is performed in laboratories within the [facility], each of which is certified under [...] fact sheets at the following FDA website: https://www.fda.gov/medical-devices/kzqylqzgyvi-bsvpvmy-4366-dsdtp-84-swrglaqwn- use-a powvqxhtsdbka-drsjnuk-eqrzndd/mkepq-leuvqwxnsut-hesw Human Metapneumovirus Not Detected Not Detected [facility] Human Rhinovirus/Enterov irus Not Detected Not Detected [facility] Influenza A Not Detected Not Detected [facility] Influenza B Not Detected Not Detected [facility] Parainfluenza 1 Not Detected Not Detected [facility] Parainfluenza 2 Not Detected Not Detected [facility] Parainfluenza 3 Detected(A) Not Detected [facility] Parainfluenza 4 Not Detected Not Detected [facility] Respiratory Syncytial Virus Not Detected Not Detected [facility] Chlamydophila pneumoniae Not Detected Not Detected [facility] Mycoplasma pneumoniae Not Detected Not Detected [facility] Nasopharyngeal Swab 06/29/19 2:58 PM EST 06/28/2022 4:24 PM EST Narrative Resulting Agency Comment Spec In Lab Estevan Alfaro MD MICROBIOLOGY - GENER AL ORDERABLES [facility] [place] [address] * Differential, Automated (06/28/2022 5:38 AM EST) Neutrophil % 54.1 % [facility] Neutrophil Absolute 3.04 1.70 - 6.10 x10(3)/[facility] LAB[facility] Lymph % 34.3 % [facility] Lymphocytes Abs 1.9 0.9 - 3.2 x10(3)/[facility] [facility] Monocyte % 8.7 % [facility] LABORATORY Monocyte Abs 0.5 0.3 - 0.9 x10(3)/[facility] LABORATORY Eos % 2.0 % [facility] Eosinophils Abs 0.1 0.0 - 0.4 x10(3)/[facility] LABORATORY Basophil % 0.5 % [facility] LABORATORY Baso Absolute 0.0 0.0 - 0.1 x10(3)/[facility] LABORATORY Immature Gran % 0.40 % [facility] Comment: Immature granulocytes(IG's)percentage and absolute count will include metamyelocytes, myelocytes, and promyelocytes. Blood smears from CBCs yielding IG's will be scanned manually for concordance. If this scan disagrees with the automated IG or if promyelocytes are noted, a manual differential will be performed. Immature Gran Absolute 0.02 0.00 - 0.04 x10(3)/[facility] LABORATORY Blood 06/28/2022 5:38 AM EST 06/28/2022 5:54 AM EST Narrative Resulting Agency Comment Spec In Lab Anurag Call DO HEMATOLOGY ORDERABLE S Performing Organization Address City/State/[facility] Co de Phone Number [facility] [place] [address] * (ABNORMAL) Hemogram (06/28/2022 5:38 AM EST) White Blood Cell 5.6 4.0 - 9.5 x10(3)/mc L [facility] Red Blood Cell 4.08 4.00 - 5.21 x10(6)/mc L [facility] Hemoglobin 9.9(L) 11.7 - 15.5 g/dL [facility] Hematocrit 31.6(L) 35.7 - 45.8 % [facility] Mean Cell Volume 77.5(L) 82.6 - 94.4 fL [facility] Mean Cell Hemoglobin 24.3(L) 27.1 - 32.0 pg [facility] Mean Cell Hemoglobin Concentration 31.3(L) 31.7 - 35.0 g/dL [facility] Platelet 371(H) 145 - 357 x10(3)/mc L [facility] RDW Standard Deviation 50.5(H) 37.0 - 46.0 fL [facility] RDW coefficient of variation 18.2(H) 11.5 - 14.1 % [facility] Mean Platelet Volume 9.3 7.6 - 12.9 fL [facility] NRBC% auto 0.0 % [facility] NRBC Absolute 0.000 0.000 - 0.000 x10(3)/mc L [facility] Blood 06/28/2022 5:38 AM EST 06/28/2022 5:54 AM EST Narrative Resulting Agency Comment Spec In Lab Anurag Call DO HEMATOLOGY ORDERABLE S Performing Organization Address [facility] Co de Phone Number [facility] [place] [address] * Magnesium (06/28/2022 5:38 AM EST) Magnesium 0.78 0.69 - 1.07 mmol/L [facility] Blood 06/28/2022 5:38 AM EST 06/28/2022 5:54 AM EST Narrative Resulting Agency Comment Spec In Lab Anurag Call DO CHEMISTRY ORDERABLES Performing Organization Address [facility] de Phone Number [facility] [place] [address] * (ABNORMAL) Basic Metabolic Panel (non-fasting) (06/28/2022 5:38 AM EST) Glucose 95 65 - 199 mg/dL [facility] Comment:Diabetes: >=200 mg/d L plus symptoms Blood Urea Nitrogen 11 8 - 18 mg/dL [facility] Creatinine 0.27(L) 0.70 - 1.20 mg/dL [facility] Sodium 137 135 - 145 mmol/L [facility] Potassium 4.0 3.5 - 5.0 mmol/L [facility] Comment: Please note: ??Patients with WBC >100,000 may have falsely elevated Potassium levels. ??For accurate Potassium quantification in these patients send serum separator tube (gold top) for subsequent determinations. ??Contact the Clinical Chemistry Laboratory if there are any questions. Chloride 102 98 - 107 mmol/L [facility] Carbon Dioxide 25 22 - 31 mmol/L [facility] Anion Gap 10 5 - 15 mmol/L [facility] Calcium 9.1 8.5 - 10.5 mg/dL [facility] Est Glomerular Filtration Rate 151 >=60 mL/min/1. 73 m?? [facility] Comment: This patient's estimated GFR [...] Call DO CHEMISTRY ORDERABLES Performing Organization Address [facility] Co de Phone Number [facility] [place] [address] * (ABNORMAL) CRP, acute inflammation (06/28/2022 5:38 AM EST) C-Reactive Protein 53.8(H) <=4.9 mg/L [facility] Blood 06/28/2022 5:38 AM EST 06/28/2022 5:54 AM EST Narrative Resulting Agency Comment Spec In Lab Anurag Call DO CHEMISTRY ORDERABLES Performing Organization Address [facility]/ZIP Co de Phone Number [facility] [place] [address] * (ABNORMAL) Sedimentation rate (06/28/2022 5:38 AM EST) Sedimentation Rate Automated 113(H) 2 - 37 mm/hr [facility] Comment: Effective April 06, 2019 new capillary photometric technology has resulted in a change in reference ranges. It is recommended that each ESR result be reviewed with its own age appropriate reference range. Blood 06/28/2022 5:38 AM EST 06/28/2022 5:54 AM EST Narrative Resulting Agency Comment Spec In Lab Anurag Call DO HEMATOLOGY ORDERABLE S [facility] [place] [address] * Differential, Automated (06/27/2022 5:58 AM EST) Neutrophil % 50.4 % [facility] Neutrophil Absolute 2.79 1.70 - 6.10 x10(3)/[facility] LABORATORY Lymph % 38.7 % [facility] Lymphocytes Abs 2.1 0.9 - 3.2 x10(3)/[facility] LABORATORY Monocyte % 8.0 % [facility] LABORATORY Monocyte Abs 0.4 0.3 - 0.9 x10(3)/[facility] LABORATORY Eos % 1.8 % [facility] Eosinophils Abs 0.1 0.0 - 0.4 x10(3)/[facility] LABORATORY Basophil % 0.7 % [facility]ORY Baso Absolute 0.0 0.0 - 0.1 x10(3)/[facility] LABORATORY Immature Gran % 0.40 % [facility] Comment: Immature granulocytes(IG's)percentage and absolute count will include metamyelocytes, myelocytes, and promyelocytes. Blood smears from CBCs yielding IG's will be scanned manually for concordance. If this scan disagrees with the automated IG or if promyelocytes are noted, a manual differential will be performed. Immature Gran Absolute 0.02 0.00 - 0.04 x10(3)/[facility] LABORATORY Blood 06/27/2022 5:58 AM EST 06/27/2022 6:24 AM EST Narrative Resulting Agency Comment Spec In Lab Eddi Vázquez MD HEMATOLOGY ORDERABLE S [facility] [place] [address] * (ABNORMAL) Hemogram (06/27/2022 5:58 AM EST) White Blood Cell 5.5 4.0 - 9.5 x10(3)/mc L [facility] Red Blood Cell 3.85(L) 4.00 - 5.21 x10(6)/mc L [facility] Hemoglobin 9.2(L) 11.7 - 15.5 g/dL [facility] Hematocrit 30.0(L) 35.7 - 45.8 % [facility] Mean Cell Volume 77.9(L) 82.6 - 94.4 fL [facility] Mean Cell Hemoglobin 23.9(L) 27.1 - 32.0 pg [facility] Mean Cell Hemoglobin Concentration 30.7(L) 31.7 - 35.0 g/dL [facility] Platelet 389(H) 145 - 357 x10(3)/mc L [facility] RDW Standard Deviation 50.5(H) 37.0 - 46.0 fL [facility] RDW coefficient of variation 17.9(H) 11.5 - 14.1 % [facility] Mean Platelet Volume 9.4 7.6 - 12.9 fL [facility] NRBC% auto 0.0 % [facility] NRBC Absolute 0.000 0.000 - 0.000 x10(3)/mc L [facility] Blood 06/27/2022 5:58 AM EST 06/27/2022 6:24 AM EST Narrative Resulting Agency Comment Spec In Lab Eddi Vázquez MD HEMATOLOGY ORDERABLE S [facility] [place] [address] * (ABNORMAL) Basic Metabolic Panel (non-fasting) (06/27/2022 5:58 AM EST) Glucose 97 65 - 199 mg/dL [facility] Comment:Diabetes: >=200 mg/d L plus symptoms Blood Urea Nitrogen 12 8 - 18 mg/dL [facility] Creatinine 0.32(L) 0.70 - 1.20 mg/dL [facility] Sodium 138 135 - 145 mmol/L [facility] Potassium 3.9 3.5 - 5.0 mmol/L [facility] Comment: Please note: ??Patients with WBC >100,000 may have falsely elevated Potassium levels. ??For accurate Potassium quantification in these patients send serum separator tube (gold top) for subsequent determinations. ??Contact the Clinical Chemistry Laboratory if there are any questions. Chloride 102 98 - 107 mmol/L [facility] Carbon Dioxide 25 22 - 31 mmol/L [facility] Anion Gap 11 5 - 15 mmol/L [facility] Calcium 9.2 8.5 - 10.5 mg/dL [facility] Est Glomerular Filtration Rate 145 >=60 mL/min/1. 73 m?? [facility] Comment: This patient's estimated GFR [...] In Lab Eddi Vázquez MD CHEMISTRY ORDERABLES [facility] [place] [address] * (ABNORMAL) Blood Gas Venous (NL) (06/26/2022 9:01 PM EST) pH, Venous 7.45(H) 7.32 - 7.42 [facility] PCO2, Venous 40(L) 41 - 51 mmHg [facility] PO2, Venous 70(H) 25 - 40 mmHg [facility] Bicarbonate, Venous 27.2 mmol/L [facility] Base Excess, Venous 3.2 mmol/L [facility] Hgb Blood Gas 11.5(L) 11.7 - 15.5 g/dL [facility] Oxyhemoglobin, Venous 94.6 % [facility] Carboxyhemoglob in, Venous 0.1 % [facility] Comment: Nonsmokers: 0.5-1.5% COHB Smokers: Variable, but usually less than 10% Toxic: 20-30% COHB Lethal: Greater than 60% COHB Methemoglobin, Venous 0.3 <=1.5 % [facility] Na Whole Blood 140 135 - 145 mmol/L [facility] K Whole Blood 4.2 3.5 - 5.0 mmol/L [facility] Comment: Please note: Patients with WBC >100,000 may have falsely elevated Potassium levels. Contact the Clinical Chemistry Laboratory if there are any questions. ICa Whole Blood 1.20 1.15 - 1.33 mmol/L [facility] Comment: Note: ??Total bilirubin higher than 20 mg/dL may lead to falsely low ionized calcium. CL Whole Blood 101 98 - 107 mmol/L [facility] Gluc Whole Bld 98 65 - 199 mg/dL [facility] Comment:Diabetes: >=200 mg/d L plus symptoms Lactate WB 1.3 0.5 - 2.2 mmol/L [facility] Blood Gas Source Venous [facility] Blood Venous Draw / Unknown 06/26/2022 9:01 PM EST 06/26/2022 9:07 PM EST Narrative Resulting Agency Comment Spec In Lab Mayank Kang MD CHEMISTRY ORDERABLES [facility] [place] [address] * EKG 12 Lead (06/26/2022 8:46 PM EST) Ventricular rate 136 BPM MUSE SYSTEM Atrial Rate 136 BPM MUSE SYSTEM P-R Interval 126 ms MUSE SYSTEM QRS Duration 72 ms MUSE SYSTEM Q-T Interval 298 ms MUSE SYSTEM QTC Calculated (Bezet) 448 ms MUSE SYSTEM Calculated P [place] 35 degrees MUSE SYSTEM Calculated R [place] 7 degrees MUSE SYSTEM Calculated T [place] 52 degrees MUSE SYSTEM INTERPRETATION Sinus tachycardia Abnormal ECG Confirmed by Altagracia Palomo ([id number]) on 06/27/2022 3:21:46 PM MUSE SYSTEM 06/26/2022 8:46 PM EST 06/27/2022 3:21 PM EST Mayank Kang MD ECG ORDERABLES MUSE SYSTEM * Differential, Automated (06/26/2022 5:38 AM EST) [facility]rophil % 55.3 % [facility] Neutrophil Absolute 2.95 1.70 - 6.10 x10(3)/[facility] LABORATORY Lymph % 34.1 % [facility] Lymphocytes Abs 1.8 0.9 - 3.2 x10(3)/[facility] LABORATORY Monocyte % 8.1 % [facility]ORAT[facility] Monocyte Abs 0.4 0.3 - 0.9 x10(3)/[facility] LABORATORY Eos % 1.7 % [facility] Eosinophils Abs 0.1 0.0 - 0.4 x10(3)/[facility] LABORATORY Basophil % 0.6 % [facility] Baso Absolute 0.0 0.0 - 0.1 x10(3)/[facility] LABORATORY Immature Gran % 0.20 % [facility] Comment: Immature granulocytes(IG's)percentage and absolute count will include metamyelocytes, myelocytes, and promyelocytes. Blood smears from CBCs yielding IG's will be scanned manually for concordance. If this scan disagrees with the automated IG or if promyelocytes are noted, a manual differential will be performed. Immature Gran Absolute 0.01 0.00 - 0.04 x10(3)/[facility] LABORATORY Blood 06/26/2022 5:38 AM EST 06/26/2022 6:21 AM EST Narrative Resulting Agency Comment Spec In Lab Eddi Vázquez MD HEMATOLOGY ORDERABLE S [facility] [place] [address] * (ABNORMAL) Hemogram (06/26/2022 5:38 AM EST) White Blood Cell 5.3 4.0 - 9.5 x10(3)/mc L [facility] Red Blood Cell 4.30 4.00 - 5.21 x10(6)/mc L [facility] Hemoglobin 10.1(L) 11.7 - 15.5 g/dL [facility] Hematocrit 33.5(L) 35.7 - 45.8 % [facility] Mean Cell Volume 77.9(L) 82.6 - 94.4 fL [facility] Mean Cell Hemoglobin 23.5(L) 27.1 - 32.0 pg [facility] Mean Cell Hemoglobin Concentration 30.1(L) 31.7 - 35.0 g/dL [facility] Platelet 467(H) 145 - 357 x10(3)/mc L [facility] RDW Standard Deviation 50.8(H) 37.0 - 46.0 fL [facility] RDW coefficient of variation 18.1(H) 11.5 - 14.1 % [facility] Mean Platelet Volume 9.4 7.6 - 12.9 fL [facility] NRBC% auto 0.0 % [facility] NRBC Absolute 0.000 0.000 - 0.000 x10(3)/ L [facility] Blood 06/26/2022 5:38 AM EST 06/26/2022 6:21 AM EST Narrative Resulting Agency Comment Spec In Lab Eddi Vázquez MD HEMATOLOGY ORDERABLE S [facility] [place] [address] * (ABNORMAL) Basic Metabolic Panel (non-fasting) (06/26/2022 5:38 AM EST) Glucose 97 65 - 199 mg/dL [facility] Comment:Diabetes: >=200 mg/d L plus symptoms Blood Urea Nitrogen 12 8 - 18 mg/dL [facility] Creatinine 0.28(L) 0.70 - 1.20 mg/dL [facility] Sodium 141 135 - 145 mmol/L [facility] Potassium 4.2 3.5 - 5.0 mmol/L [facility] Comment: Please note: ??Patients with WBC >100,000 may have falsely elevated Potassium levels. ??For accurate Potassium quantification in these patients send serum separator tube (gold top) for subsequent determinations. ??Contact the Clinical Chemistry Laboratory if there are any questions. Chloride 103 98 - 107 mmol/L [facility] Carbon Dioxide 26 22 - 31 mmol/L [facility] Anion Gap 12 5 - 15 mmol/L [facility] Calcium 9.3 8.5 - 10.5 mg/dL [facility] Est Glomerular Filtration Rate 150 >=60 mL/min/1. 73 m?? [facility] Comment: This patient's estimated GFR [...] Vázquez MD CHEMISTRY ORDERABLES Performing Organization Address City/State/[facility] Co de Phone Number [facility] [place] [address] * IR All Drainage Procedures (06/25/2022 4:45 [...] 25 cc. Fluoroscopy time: ?? Please see [facility] IR technologist record for procedural dose/time. Cefazolin/ [...] ??The tract was dilated, and an 8 Nigerien drain was advanced over the wire into [...] aspiration demonstrated shiraz pus, and an 8 Nigerien drain was placed using ultrasound guidance as above. I, the attending Interventional Radiologist performed the entire procedure. ?? Eddi Vázquez MD IMG IR ORDERABLES * Anaerobic Culture (06/25/2022 3:12 PM EST) Anaerobic Culture No anaerobic organisms isolated [facility] Fluid 06/25/2022 3:12 PM EST 06/25/2022 5:21 PM EST Comment:Inferior spinal flui d collection Narrative Resulting Agency Comment Spec In Lab Anurag Call DO MICROBIOLOGY - GENER AL ORDERABLES Performing Organization Address [facility] [place] [address] * Body Fluid Culture, Aerobic (06/25/2022 3:12 PM EST) Body Fluid Culture No growth [facility] Gram Stain Many Neutrophils seen No microorganisms seen. [facility] Fluid 06/25/2022 3:12 PM EST 06/25/2022 5:21 PM EST Comment:Inferior spinal flui d collection Narrative Resulting Agency Comment Spec In Lab Anurag Call DO MICROBIOLOGY - GENER AL ORDERABLES Performing Organization Address [facility] [place] [address] * Anaerobic Culture (06/25/2022 3:11 PM EST) Anaerobic Culture No anaerobic organisms isolated [facility] Fluid 06/25/2022 3:11 PM EST 06/25/2022 5:21 PM EST Comment:Superior spinal flui d collection Narrative Resulting Agency Comment Spec In Lab Anurag Call DO MICROBIOLOGY - GENER AL ORDERABLES Performing Organization Address [facility] Co de Phone Number [facility] [place] [address] * Body Fluid Culture, Aerobic (06/25/2022 3:11 PM EST) Body Fluid Culture No growth [facility] Gram Stain Many Neutrophils seen No microorganisms seen. [facility] Fluid 06/25/2022 3:11 PM EST 06/25/2022 5:21 PM EST Comment:Superior spinal flui d collection Narrative Resulting Agency Comment Spec In Lab Anurag Call DO MICROBIOLOGY - GENER AL ORDERABLES Performing Organization Address City/[facility]/ZIP Co de Phone Number [facility] [place] [address] * Blood culture (06/25/2022 8:55 AM EST) Blood Culture No growth at 5 days. [facility] Blood Pediatric STRUCTURE OF RIGHT HAND / Unknown 06/25/2022 8:55 AM EST 06/25/2022 9:16 AM EST Comment:#2 Narrative Resulting Agency Comment Spec In Lab Eddi Vázquez MD MICROBIOLOGY - BLOOD ORDERABLES Performing Organization Address [facility] Co de Phone Number [facility] [place] [address] * Blood culture (06/25/2022 8:55 AM EST) Blood Culture No growth at 5 days. [facility] Blood Pediatric STRUCTURE OF RIGHT UPPER LIMB / Unknown 06/25/2022 8:55 AM EST 06/25/2022 9:16 AM EST Comment:#1 upper Narrative Resulting Agency Comment Spec In Lab Eddi Vázquez MD MICROBIOLOGY - BLOOD ORDERABLES Performing Organization Address [facility] Co de Phone Number [facility] [place] [address] * Differential, Automated (06/25/2022 2:20 AM EST) Neutrophil % 60.4 % [facility] Neutrophil Absolute 4.34 1.70 - 6.10 x10(3)/[facility] LABORATORY Lymph % 30.3 % [facility] Lymphocytes Abs 2.2 0.9 - 3.2 x10(3)/[facility] LABORATORY Monocyte % 7.2 % [facility] Monocyte Abs 0.5 0.3 - 0.9 x10(3)/[facility] LABORATORY Eos % 1.4 % [facility] Eosinophils Abs 0.1 0.0 - 0.4 x10(3)/[facility] LABORATORY Basophil % 0.6 % [facility] Baso Absolute 0.0 0.0 - 0.1 x10(3)/[facility] LABORATORY Immature Gran % 0.10 % [facility] Comment: Immature granulocytes(IG's)percentage and absolute count will include metamyelocytes, myelocytes, and promyelocytes. Blood smears from CBCs yielding IG's will be scanned manually for concordance. If this scan disagrees with the automated IG or if promyelocytes are noted, a manual differential will be performed. Immature Gran Absolute 0.01 0.00 - 0.04 x10(3)/[facility] LABORATORY Blood 06/25/2022 2:20 AM EST 06/25/2022 2:26 AM EST Narrative Resulting Agency Comment Spec In Lab Eddi Vázquez MD HEMATOLOGY ORDERABLE S [facility] [place] [address] * (ABNORMAL) Hemogram (06/25/2022 2:20 AM EST) White Blood Cell 7.2 4.0 - 9.5 x10(3)/ L [facility] Red Blood Cell 4.06 4.00 - 5.21 x10(6)/mc L [facility] Hemoglobin 9.8(L) 11.7 - 15.5 g/dL [facility] Hematocrit 30.7(L) 35.7 - 45.8 % [facility] Mean Cell Volume 75.6(L) 82.6 - 94.4 fL [facility] Mean Cell Hemoglobin 24.1(L) 27.1 - 32.0 pg [facility] Mean Cell Hemoglobin Concentration 31.9 31.7 - 35.0 g/dL [facility] Platelet 437(H) 145 - 357 x10(3)/mc L [facility] RDW Standard Deviation 48.7(H) 37.0 - 46.0 fL [facility] RDW coefficient of variation 17.9(H) 11.5 - 14.1 % [facility] Mean Platelet Volume 8.9 7.6 - 12.9 fL [facility] NRBC% auto 0.0 % [facility] NRBC Absolute 0.000 0.000 - 0.000 x10(3)/mc L [facility] Blood 06/25/2022 2:20 AM EST 06/25/2022 2:26 AM EST Narrative Resulting Agency Comment Spec In Lab Eddi Vázquez MD HEMATOLOGY ORDERABLE S [facility] [place] [address] * (ABNORMAL) Basic Metabolic Panel (non-fasting) (06/25/2022 2:20 AM EST) Glucose 97 65 - 199 mg/dL [facility] Comment:Diabetes: >=200 mg/d L plus symptoms Blood Urea Nitrogen 9 8 - 18 mg/dL [facility] Creatinine 0.30(L) 0.70 - 1.20 mg/dL [facility] Sodium 140 135 - 145 mmol/L [facility] Potassium 4.1 3.5 - 5.0 mmol/L [facility] Comment: Please note: ??Patients with WBC >100,000 may have falsely elevated Potassium levels. ??For accurate Potassium quantification in these patients send serum separator tube (gold top) for subsequent determinations. ??Contact the Clinical Chemistry Laboratory if there are any questions. Chloride 103 98 - 107 mmol/L [facility] Carbon Dioxide 27 22 - 31 mmol/L [facility] Anion Gap 10 5 - 15 mmol/L [facility] Calcium 9.4 8.5 - 10.5 mg/dL [facility] Est Glomerular Filtration Rate 147 >=60 mL/min/1. 73 m?? [facility] Comment: This patient's estimated GFR [...] In Lab Eddi Vázquez MD CHEMISTRY ORDERABLES [facility] [place] [address] * CT Lumbar Spine w Contrast (06/24/2022 [...] who have questions please contact the health early breastfeeding care specialist that requested your imaging first. [...] patients who have questions please contactthe health early breastfeeding care specialist that requested your imaging first. Annabella Crawford APRN IMG CT ORDERABLES * Differential, Automated (06/24/2022 4:23 PM EST) Neutrophil % 63.2 % [facility] Neutrophil Absolute 4.29 1.70 - 6.10 x10(3)/[facility] LABORATORY Lymph % 29.4 % [facility] Lymphocytes Abs 2.0 0.9 - 3.2 x10(3)/[facility] LABORATORY Monocyte % 4.6 % [facility] Monocyte Abs 0.3 0.3 - 0.9 x10(3)/[facility] LABORATORY Eos % 1.8 % [facility] Eosinophils Abs 0.1 0.0 - 0.4 x10(3)/[facility] LABORATORY Basophil % 0.7 % [facility] Baso Absolute 0.0 0.0 - 0.1 x10(3)/[facility] LABORATORY Immature Gran % 0.30 % [facility] Comment: Immature granulocytes(IG's)percentage and absolute count will include metamyelocytes, myelocytes, and promyelocytes. Blood smears from CBCs yielding IG's will be scanned manually for concordance. If this scan disagrees with the automated IG or if promyelocytes are noted, a manual differential will be performed. Immature Gran Absolute 0.02 0.00 - 0.04 x10(3)/[facility] LABORATORY Blood 06/24/2022 4:23 PM EST 06/24/2022 4:38 PM EST Narrative Resulting Agency Comment Spec In Lab Kvng SIMMS HEMATOLOGY ORDERABL ES [facility] [place] [address] * (ABNORMAL) Hemogram (06/24/2022 4:23 PM EST) White Blood Cell 6.8 4.0 - 9.5 x10(3)/ L [facility] Red Blood Cell 4.40 4.00 - 5.21 x10(6)/[facility] LABORATORY Hemoglobin 10.5(L) 11.7 - 15.5 g/dL [facility] Hematocrit 33.6(L) 35.7 - 45.8 % [facility] Mean Cell Volume 76.4(L) 82.6 - 94.4 fL [facility] Mean Cell Hemoglobin 23.9(L) 27.1 - 32.0 pg [facility] Mean Cell Hemoglobin Concentration 31.3(L) 31.7 - 35.0 g/dL [facility] Platelet 516(H) 145 - 357 x10(3)/mc L [facility] RDW Standard Deviation 48.5(H) 37.0 - 46.0 fL [facility] RDW coefficient of variation 17.8(H) 11.5 - 14.1 % [facility] Mean Platelet Volume 9.0 7.6 - 12.9 fL [facility] NRBC% auto 0.0 % [facility] NRBC Absolute 0.000 0.000 - 0.000 x10(3)/mc L [facility] Blood 06/24/2022 4:23 PM EST 06/24/2022 4:38 PM EST Narrative Resulting Agency Comment Spec In Lab Kvng SIMMS HEMATOLOGY ORDERABL ES Performing Organization Address City/[facility]/ZIP Co de Phone Number [facility] [place] [address] * (ABNORMAL) Sedimentation rate (06/24/2022 4:23 PM EST) Pathologist [facility] Sedimentation Rate Automated >119(H) 2 - 37 mm/hr [facility] Comment: Effective April 06, 2019 new capillary photometric technology has resulted in a change in reference ranges. It is recommended that each ESR result be reviewed with its own age appropriate reference range. Blood 06/24/2022 4:23 PM EST 06/24/2022 4:38 PM EST Narrative Resulting Agency Comment Spec In Lab Gaby Robert MD HEMATOLOGY ORDERABLE S [facility] [place] [address] * (ABNORMAL) CRP, acute inflammation (06/24/2022 4:23 PM EST) C-Reactive Protein 96.9(H) <=4.9 mg/L [facility] Blood 06/24/2022 4:23 PM EST 06/24/2022 4:38 PM EST Narrative Resulting Agency Comment Spec In Lab Gaby Robert MD CHEMISTRY ORDERABLES [facility] [place] [address] * (ABNORMAL) Basic Metabolic Panel (non-fasting) (06/24/2022 4:23 PM EST) Glucose 97 65 - 199 mg/dL [facility] Comment:Diabetes: >=200 mg/d L plus symptoms Blood Urea Nitrogen 9 8 - 18 mg/dL [facility] Creatinine 0.26(L) 0.70 - 1.20 mg/dL [facility] Sodium 143 135 - 145 mmol/L [facility] Potassium 3.9 3.5 - 5.0 mmol/L [facility] Comment: Please note: ??Patients with WBC >100,000 may have falsely elevated Potassium levels. ??For accurate Potassium quantification in these patients send serum separator tube (gold top) for subsequent determinations. ??Contact the Clinical Chemistry Laboratory if there are any questions. Chloride 104 98 - 107 mmol/L [facility] Carbon Dioxide 27 22 - 31 mmol/L [facility] Anion Gap 12 5 - 15 mmol/L [facility] Calcium 10.0 8.5 - 10.5 mg/dL [facility] Est Glomerular Filtration Rate 152 >=60 mL/min/1. 73 m?? [facility] Comment: This patient's estimated GFR [...] In Lab Gaby Robert MD CHEMISTRY ORDERABLES [facility] [place] [address] documented in this encounter Visit Diagnoses Diagnosis [...] Intravenous, ONCE PRN, 1 dose, Starting on 06/24/22 at 1820, Until Tu06/24/22 at 1820, Per [...] 1-400 mL, Other, ONCE, 1 dose, On e 07/01/22 at 1600, For intra-procedural use by proceduralist., [...] ONCE, 1 dose, On Thu07/02/22 at 0900 [facility] Bag 07/02/2022 8:48 AM EST lactated Ringers 500 mL IV bolus at 500 mL/hr, Intravenous, ONCE, 1 dose, On Thu07/04/22 at 0045 New Bag 07/04/2022 12:27 AM EST 500 mL/hr lactated Ringers 500 mL IV bolus at 500 mL/hr, Intravenous, ONCE, 1 dose, On Thu07/04/22 at 0330 New Bag 07/04/2022 3:00 AM EST 500 mL/hr lactated Ringers 500 mL IV bolus at 500 mL/hr, Intravenous, ONCE, 1 dose, On Thu07/04/22 at 0615 New 07/04/2022 5:35 AM EST 500 mL/hr lactated [...] ONCE, 1 dose, On Thu07/07/22 at 0730 07/07/2022 6:30 AM EDT 500 mL/hr lactated ringers infusion 75 mL/hr, Intravenous, CONTINUOUS, Starting on Thu06/27/22 at 0200, Until Thu06/27/22 at 0859 06/27/2022 1:42 AM EST 75 mL/hr 75 mL/hr lactated ringers infusion 50 mL/hr, Intravenous, CONTINUOUS, Starting on Thu07/01/22 at 2300, Until Thu07/02/22 at 1059 07/01/2022 10:15 PM EST 50 mL/hr 50 mL/hr lactated ringers infusion 100 mL/hr, Intravenous, CONTINUOUS, Starting on Thu07/04/22 at 0400, Until Thu07/04/22 at 1359 07/04/2022 9:41 AM EST 100 mL/hr 100 mL/hr Rate/Dose Change 07/04/2022 8:15 AM EST 100 mL/hr 100 mL/ hr 07/04/2022 3:59 AM EST 75 mL/hr 75 mL/hr lactated ringers infusion 100 mL/hr, Intravenous, CONTINUOUS, Starting on Thu07/04/22 at 1915, Until Thu07/05/22 at 0514 New 07/05/2022 2:11 AM EST 100 mL/hr 100 mL/hr New 07/04/2022 6:38 PM EST 100 mL/hr 100 [...] dose on Thu06/26/22 at 1145, Until Discontinued Given 07/08/2022 8:01 [...] PRN, Starting on Thu07/02/22 at 0902, Until 3/12/23 at 1452, Constipation, Routine Given 07/02/2022 8:18 [...] 1 dose, On Thu07/06/22 at 1815 New Bag 07/06/2022 5:32 PM EDT 250 mL/hr sodium chloride 0.9% infusion 100 mL/hr, Intravenous, CONTINUOUS, Starting on Thu07/06/22 at 1500, Until Thu07/06/22 at 1812 New Bag 07/06/2022 4:17 PM EDT 100 mL/hr 100 [...] Vitale LPN) 0840 (Given - Provider: Jigna Neal, EUNICE) sodium chloride 0.9 % (flush) (BD PosiFlush [...] Starting on Dianne 07/03/22 at 2231, Until 07/09/22 at 1229, Nausea 2025 (Given - Provider: [...] documented as of this encounter Care Teams Health Claims Examiner Relationship Specialty Start Date End Date Lorna Bal APRN [address] [place] [address] PCP - General Family Medicine 05/27/18 documented as of this encounter
--- OUTSIDE RECORDS SUMMARY | 2023-12-04 12:39 | XMS_ITS | Encounter Summary ---
Author Organization [facility] Address [facility] [place] [address] Care Team Providers Care Box Sealing Machine Operator Name Role Phone Emelyn Easley MD Primary Care Provider [phone] Encounter Details Date Type Department Care Team (Late st Contact Info) Description 01/20/2017 Telephone Orthopaedics at [place] [phone] Vanda Carter PA [facility] [place] [address] Social History Tobacco Use Types Packs/Day Years [...] encounter Miscellaneous Notes * Telephone Encounter - rAuna Jamil RN - 01/20/2017 12:57 PM EDT Returned call to patient's Mother, Cristiano, received voicemail, left message instructing per DEMI [...] PM EST Office [place] [address] Hollie Ambriz MD [facility] [place] [address] documented as of this encounter Visit Diagnoses Not on filedocumented in this encounter Care Teams Box Sealing Machine Operator Relationship Specialty Start Date End Date Emelyn Easley MD [address] [place] [address] PCP - General Family Medicine 08/26/16 05/26/18 documented as of this encounter
--- OUTSIDE RECORDS SUMMARY | 2023-12-04 12:39 | XMS_ITS | Encounter Summary ---
Author Organization [facility] Address [facility] [place] [address] Care Team Providers Care Engine Service Repairer Name Role Phone Lorna Bal APRN Primary Care Provider [phone] Encounter Details Date Type Department Care Team (Latest Contact Info) Description 03/18/2019 1:45 PM EST - 03/18/2019 11:59 PM EST Hospital Encounter XRay at [address] [place] [address] Josse Mckee MD [facility] [place] [address] Acquired dysplasia of hip, unspecified laterality Discharge [...] PM EST Office [place] [address] Hollie Ambriz MD [facility] [place] [address] documented as of this encounter Procedures Procedure [...] Electronically signed by: Zander Sherwood [facility] ([phone]), at 03/18/2019 4:22 PM Narrative 03/18/2019 4:22 [...] this report, please contact the number below. Electronically signed by: Zander Sherwood [facility]([phone]), at 03/18/2019 4:22 PM Josse Mckee MD IMG DX ORDERABLES documented in this encounter Visit Diagnoses Diagnosis Acquired dysplasia of hip, unspecified laterality documented in this encounter Care Teams Engine Service Repairer Relationship Specialty Start Date End Date Lorna Bal APRN [address] [place] [address] PCP - General Family Medicine 05/27/18 documented as of this encounter
--- OUTSIDE RECORDS SUMMARY | 2023-12-04 12:39 | XMS_ITS | Encounter Summary ---
Author Organization [facility] Address [facility] [place] [address] Care Team Providers Care Aquatics Specialist Name Role Phone Emelyn Easley MD Primary Care Provider [phone] Reason for Visit * Reason Comments Rash * Consultation (Routine) - Closed Specialty Diagnoses / Procedures Referred By Karlo duarte Referred To Contact Dermatology Diagnoses RASH TO UPPER EXTREMITIES EXTENDS TO RIGHT SIDE. Lorna Bal APRN [address] [place] [address] [facility] Dermatology [address] [place] [address] Referral ID Status Reason Start Date Expiration Date V isits Requested Visits Authorized [id number] Closed Consult, Test & Treat Connection Center 09/15/2017 09/15/2018 1 1 Encounter Details Date Type Department Care Team (Late st Contact Info) Description 11/16/2017 9:00 AM EDT Office Visit Dermatology at [facility] [address] [place] [address] Emili Mcdonald MD [facility] [address] [address] Keratosis pilaris (Primary Dx); Multiple [...] [Transparent Dressings] Itching and Dermatitis Please use [id number] Review of Systems: - General: Feels well. [...] by Emili Mcdonald MD Resident in Dermatology [facility] Patient seen in conjunction with staff deburring technician: Wally Araya MD Section of Dermatology [facility] Level of Resident Supervision: Direct Supervision [...] PM EST Office [place] [address] Hollie Ambriz MD [facility] [place] [address] documented as of this encounter Visit Diagnoses Diagnosis Keratosis pilaris- Primary Other specified congenital anomaly of skin Multiple benign nevi Benign neoplasm of skin, site unspecified documented in this encounter Care Teams Aquatics Specialist Relationship Specialty Start Date End Date Emelyn Easley MD [address] [place] [address] PCP - General Family Medicine 08/26/16 05/26/18 documented as of this encounter
--- OUTSIDE RECORDS SUMMARY | 2023-12-04 12:39 | XMS_ITS | Encounter Summary ---
Author Organization [facility] Address [facility] [address] Care Team Providers Care Construction Inspector Name Role Phone Lorna Bal APRN Primary Care Provider [phone] Reason for Visit * Reason Comments Cerebral Palsy CP hip dysplasia Encounter Details Date Type Department Care Team (Late st Contact Info) Description 03/18/2019 2:00 PM EST Office [place] [phone] Josse Mckee MD [facility] [place] [address] Acquired dysplasia of hip, unspecified laterality Social [...] NAME: Tana Cavazos AGE: 23 y.o.. MR#: [id number] ? DATE OF VISIT: 03/18/2019 ? STAFF: [...] continued pain. She continues to wear a [place] TLSO brace for her residual curve. She [...] would be continued care with an adult kohinoor operator to try to utilize botox/phenol injections to manage her pain. He did recommend [facility] in the [place] area, as a good option for an adult kohinoor operator. She can follow up PRN with Dr. Mckee, and will be transitioning to an adult provider. documented in this encounter Plan of Treatment Upcoming Encounters Date Type Department Care Team (Late st Contact Info) Description 06/02/2024 12:30 PM EST Office [place] [address] Hollie Ambriz MD [facility] [place] [address] documented as of this encounter Results * [...] laterality documented in this encounter Care Teams Construction Inspector Relationship Specialty Start Date End Date Lorna Bal APRN [address] [place] [address] PCP - General Family Medicine 05/27/18 documented as of this encounter
--- OUTSIDE RECORDS SUMMARY | 2023-12-04 12:39 | XMS_ITS | Encounter Summary ---
[place] [address] Care Team Providers Care Stain Sprayer Name Role Phone Emelyn Easley MD Primary Care Provider [phone] Reason for Visit * Diagnostic Test (Routine) - Closed Specialty Diagnoses / Procedures Referred By Contac t Referred To Contact Radiology Diagnoses Traumatic brain injury, without LOC, sequela Acquired dysplasia of hip, unspecified laterality Spasticity Neuromuscular scoliosis of lumbar region Procedures NM Whole Body Bone Scan Vanda Carter PA [facility] [place] [address] [place] [address] Referral ID Status Reason Start Date Expiration Date V isits Requested Visits Authorized [id number] Closed Specialty Service Requested 11/24/2016 11/24/2017 1 1 Encounter Details Date Type Department Care Team (Latest Contact Info) Description 12/10/2016 2:00 PM EDT - 12/10/2016 11:59 PM EDT Hospital Encounter [place] [address] Josse Mckee MD [facility] [place] [address] Discharge Disposition: Home Social History [...] PM EST Office [place] [address] Hollie Ambriz MD [facility] [place] [address] documented as of this encounter Procedures Procedure [...] at 1423, Until Thu12/10/16 at 1430, TOR REUST: cabinet override Given 12/10/2016 2:30 PM EDT 0.5 mg documented in this encounter Care Teams Stain Sprayer Relationship Specialty Start Date End Date Emelyn Easley MD [address] [place] [address] PCP - General Family Medicine 08/26/16 05/26/18 documented as of this encounter
--- OUTSIDE RECORDS SUMMARY | 2023-12-04 12:39 | XMS_ITS | Encounter Summary ---
[place] [address] Care Team Providers Care Teletypesetter Operator Name Role Phone Emelyn Easley MD Primary Care Provider [phone] Reason for Visit * Reason Onset Date Comments Other 12/19/2016 Encounter Details Date Type Department Care Team (Late st Contact Info) Description 12/19/2016 Telephone [place] [address] Josse Mckee MD [facility] [place] [address] Other Social History Tobacco Use Types Packs/Day [...] PM EST Office Visit [place] [address] Hollie Ambriz MD [facility] [place] [address] documented as of this encounter Visit Diagnoses Not on filedocumented in this encounter Care Teams Teletypesetter Operator Relationship Specialty Start Date End Date Emelyn Easley MD [address] [place] [address] PCP - General Family Medicine 08/26/16 05/26/18 documented as of this encounter
--- OUTSIDE RECORDS SUMMARY | 2023-12-04 12:39 | XMS_ITS | Encounter Summary ---
Author Organization [facility] [place] [address] Care Team Providers Care Automation Qa Tester Name Role Phone Emelyn Easley MD Primary Care Provider [phone] Reason for Referral * Diagnostic Test (Routine) - Closed Specialty Diagnoses / Procedures Referred By Contac t Referred To Contact Radiology Diagnoses Traumatic brain injury, without LOC, sequela Acquired dysplasia of hip, unspecified laterality Procedures NM Whole Body Bone Scan Vanda Carter [place] [facility] [place] [address] [place] [address] Referral ID Status Reason Start Date Expiration Date V isits Requested Visits Authorized [id number] Closed Specialty Service Requested 12/16/2016 12/16/2017 2 2 Encounter Details Date Type Department Care Team (Late st Contact Info) Description 12/16/2016 Orders [place] [address] Vanda Carter [place] [facility] [place] [address] Traumatic brain injury, without LOC, sequela; Acquired [...] PM EST Office [place] [address] Hollie Ambriz MD [facility] DR [place] [address] documented as of this encounter Results * [...] at 12/30/2016 5:18 PM Josse Mckee MD [facility] [place] ORDERABLES documented in this encounter Visit Diagnoses Diagnosis Traumatic brain injury, without LOC, sequela Acquired dysplasia of hip, unspecified laterality Traumatic brain injury, without LOC, sequela Acquired dysplasia of hip, unspecified laterality documented in this encounter Care Teams Automation Qa Tester Relationship Specialty Start Date End Date Emelyn Easley MD [address] [place] [address] PCP - General Family Medicine 08/26/16 05/26/18 documented as of this encounter
--- OUTSIDE RECORDS SUMMARY | 2023-12-04 12:40 | XMS_ITS | Encounter Summary ---
Author Organization [facility] [place] [address] Care Team Providers Care Re Examiner Name Role Phone Naina Lindsey MD Primary Care Provider [phone] Reason for Referral * Consultation (Routine) - Specialty Diagnoses / Procedures Referred By Contac t Referred To Contact Physical Medicine and Rehab Diagnoses Acquired dysplasia of hip, unspecified laterality Traumatic brain injury, without LOC, sequela Ty Woods MD [facility] [place] [address] Alek Loaiza MD [address] [place] [address] [address] [place] [address] Referral ID Status Reason Start Date Expiration Date V isits Requested Visits Authorized [id number] Consult, Test & Treat 07/29/2016 01/25/2017 1 1 Encounter Details Date Type Department Care Team (Late st Contact Info) Description 07/29/2016 Orders [place] [address] Ty Woods MD [facility] [place] [address] Acquired dysplasia of hip, unspecified laterality; Traumatic [...] PM EST Office Visit [place] [address] Hollie Ambriz MD [facility] [place] [address] Scheduled Referrals Name Type Priority Associated Diagnoses Orde r Schedule Referral to Orthopaedics Outpatient Referral Routine Acquired dysplasia of hip, unspecified laterality Traumatic Brain Injury, Without Loc, Sequela Ordered: 07/29/2016 documented as of this encounter Visit Diagnoses Diagnosis Acquired dysplasia of hip, unspecified laterality Traumatic brain injury, without LOC, sequela documented in this encounter Care Teams Re Examiner Relationship Specialty Start Date End Date Naina Lindsey MD [address] [place] [address] PCP - General 03/19/10 08/25/16 documented as of this encounter
--- OUTSIDE RECORDS SUMMARY | 2023-12-04 12:40 | XMS_ITS | Encounter Summary ---
Author Organization [facility] [place] [place] [address] Care Team Providers Care Attraction Worker Name Role Phone Naina Lindsey MD Primary Care Provider [phone] Encounter Details Date Type Department Care Team (Late st Contact Info) Description 11/09/2014 Orders [place] [address] Mesha Cabral MD [facility] [address] [place] [address] Scoliosis Social History Tobacco Use Types Packs/Day [...] PM EST Office Visit [place] [address] Hollie Ambriz MD [facility] [address] [place] [address] documented as of this encounter Visit Diagnoses Diagnosis Scoliosis Scoliosis (and kyphoscoliosis), idiopathic documented in this encounter Care Teams Attraction Worker Relationship Specialty Start Date End Date Naina Lindsey MD [address] [place] [address] [place] [address] PCP - General 03/19/10 08/25/16 documented as of this encounter
--- OUTSIDE RECORDS SUMMARY | 2023-12-04 12:40 | XMS_ITS | Encounter Summary ---
Author Organization [facility] Benjamin [facility] [place] [address] Care Team Providers Care Aerial Sprayer Name Role Phone Naina Lindsey MD Primary Care Provider [phone] Encounter Details Date Type Department Care Team (Late st Contact Info) Description 06/19/2014 External Results [place] [address] Donnell Dotson MD [facility] [address] [facility] [place], [place] [id number] Social History Tobacco Use Types Packs/Day Years [...] PM EST Office [place] [address] Hollie Ambriz MD [facility] [place] [address] documented as of this encounter Procedures Procedure Name Priority Date/Time Associated Diagnosis Comments IMPLANTABLE DEVICES SCAN Routine 05/03/2014 3:51 PM EST documented in this encounter Visit Diagnoses Not on filedocumented in this encounter Care Teams Aerial Sprayer Relationship Specialty Start Date End Date Naina Lindsey MD [address] [place] [address] PCP - General 03/19/10 08/25/16 documented as of this encounter
--- OUTSIDE RECORDS SUMMARY | 2023-12-04 12:40 | XMS_ITS | Encounter Summary ---
Author Organization [facility] Address [facility] [place] [address] Care Team Providers Care Rubber Goods Finisher Name Role Phone Naina Lindsey MD Primary Care Provider [phone] Encounter Details Date Type Department Care Team (Latest Contact Info) Description 07/31/2015 11:18 AM EDT Hospital Encounter XRay at [address] [place] [address] Mesha Cabral MD [facility] [place] [address] Neuromuscular scoliosis of lumbar region; Traumatic brain [...] PM EST Office [place] [address] Hollie Ambriz MD [facility] [place] [address] documented as of this encounter Procedures Procedure [...] sequela documented in this encounter Care Teams Rubber Goods Finisher Relationship Specialty Start Date End Date Naina Lindsey MD [address] [place] [address] PCP - General 03/19/10 08/25/16 documented as of this encounter
--- OUTSIDE RECORDS SUMMARY | 2023-12-04 12:40 | XMS_ITS | Encounter Summary ---
Author Organization [facility] Address [facility] [place] [address] Care Team Providers Care Commercial Pest Control Representative Name Role Phone Naina Lindsey MD Primary Care Provider [phone] Encounter Details Date Type Department Care Team (Latest Contact Info) Description 11/09/2014 11:01 AM EDT - 11/09/2014 11:59 PM EDT Hospital Encounter XRay at [address] [place] [address] Acquired dysplasia of hip, unspecified laterality; Traumatic [...] EST Office Visit [place] [address] Hollie Ambriz MD [facility] [place] [address] documented as of this encounter Procedures Procedure [...] limb documented in this encounter Care Teams Commercial Pest Control Representative Relationship Specialty Start Date End Date Naina Lindsey MD [address] [place] [address] PCP - General 03/19/10 08/25/16 documented as of this encounter
--- OUTSIDE RECORDS SUMMARY | 2023-12-04 12:40 | XMS_ITS | Encounter Summary ---
Author Organization [facility] [place] [address] Care Team Providers Care Manufacturing Planner Name Role Phone Naina Lindsey MD Primary Care Provider [phone] Encounter Details Date Type Department Care Team (Late st Contact Info) Description 11/09/2014 Orders [place] [address] Mesha Cabral MD [facility] [address] ORTHOPAEDIC [place] [address] Scoliosis Social History Tobacco Use Types Packs/Day [...] PM EST Office [place] [address] Hollie Ambriz MD [facility] [address] INFECTIOUS [place] [address] documented as of this encounter Results * [...] idiopathic documented in this encounter Care Teams Manufacturing Planner Relationship Specialty Start Date End Date Naina Lindsey MD [address] [place] [address] PCP - General 03/19/10 08/25/16 documented as of this encounter
--- OUTSIDE RECORDS SUMMARY | 2023-12-04 12:40 | XMS_ITS | Encounter Summary ---
Author Organization [facility] [place] [address] Care Team Providers Care Outside Property Agent Name Role Phone Naina Lindsey MD Primary Care Provider [phone] Reason for Visit * Reason Onset Date Comments Bumped Appointment 09/29/2014 Encounter Details Date Type Department Care Team (Late st Contact Info) Description 09/29/2014 Telephone [place] [address] Mesha Cabral MD [facility] DR [place] [address] Bumped Appointment Social History Tobacco Use Types [...] PM EST Office [place] [address] [facility] [place] [address] documented as of this encounter Visit Diagnoses Not on filedocumented in this encounter Care Teams Outside Property Agent Relationship Specialty Start Date End Date [place] [address] PCP - General 03/19/10 08/25/16 documented as of this encounter
--- OUTSIDE RECORDS SUMMARY | 2023-12-04 12:40 | XMS_ITS | Encounter Summary ---
Author Organization [facility] Address [facility] [place] [address] Care Team Providers Care Sales Superintendent Name Role Phone Naina Lindsey MD Primary Care Provider [phone] Reason for Referral * Consultation (Routine) - Specialty Diagnoses / Procedures Referred By Contac felicia Referred To Contact Orthotics Diagnoses Neuromuscular scoliosis of lumbar region Joe Porter MD [facility] [place] [address] Referral ID Status Reason Start Date Expiration Date V isits Requested Visits Authorized [id number] Consult, Test & Treat 06/19/2016 12/16/2016 1 1 Encounter Details Date Type Department Care Team (Late st Contact Info) Description 06/19/2016 [place] [address] Joe Porter MD [facility] [place] [address] Neuromuscular scoliosis of lumbar region Social History [...] soft TLSO brace faxed to [employer] in [facility]. documented in this encounter Plan of Treatment Upcoming Encounters Date Type Department Care Team (Late st Contact Info) Description 06/02/2024 12:30 PM EST Office [place] [address] Hollie Ambriz MD [facility] DR [place] [address] Scheduled Referrals Name Type Priority Associated Diagnoses Orde r Schedule Referral to Othotist Outpatient Referral Routine Neuromuscular scoliosis of lumbar region Ordered: 06/19/2016 documented as of this encounter Visit Diagnoses Diagnosis Neuromuscular scoliosis of lumbar region Other kyphoscoliosis and scoliosis documented in this encounter Care Teams Sales Superintendent Relationship Specialty Start Date End Date Naina Lindsey MD [address] [place] [address] [place] [address] PCP - General 03/19/10 08/25/16 documented as of this encounter
--- OUTSIDE RECORDS SUMMARY | 2023-12-04 12:40 | XMS_ITS | Encounter Summary ---
Author Organization [facility] Address [facility] [place] [address] Care Team Providers Care Assignment Editor Name Role Phone Naina Lindsey MD Primary Care Provider [phone] Reason for Visit * Reason Onset Date Comments Appointment 10/12/2014 Encounter Details Date Type Department Care Team (Late st Contact Info) Description 10/12/2014 [place] [address] Mesha aCbral MD [facility] DR [place] [address] Appointment Social History Tobacco Use Types Packs/Day [...] PM EST Office [place] [address] Hollie Ambriz MD [facility] [place] [address] documented as of this encounter Visit Diagnoses Not on filedocumented in this encounter Care Teams Assignment Editor Relationship Specialty Start Date End Date Naina Lindsey MD [address] [place] [address] [place] [address] PCP - General 03/19/10 08/25/16 documented as of this encounter
--- OUTSIDE RECORDS SUMMARY | 2023-12-04 12:40 | XMS_ITS | Encounter Summary ---
Author Organization [facility] [place] [address] Care Team Providers Care Auto Winder Name Role Phone Emelyn Easley MD Primary Care Provider Encounter Details Date Type Department Care Team (Late st Contact Info) Description 11/17/2016 [place] [address] Josse Mckee MD [facility] [place] [address] Neuromuscular scoliosis of lumbar region; Acquired dysplasia [...] PM EST Office [place] [address] Hollie Ambriz MD [facility] [place] [address] documented as of this encounter Results * [...] laterality documented in this encounter Care Teams Auto Winder Relationship Specialty Start Date End Date Emelyn Easley MD [address] [place] [address] PCP - General Family Medicine 08/26/16 05/26/18 documented as of this encounter
--- OUTSIDE RECORDS SUMMARY | 2023-12-04 12:40 | XMS_ITS | Encounter Summary ---
[place] [address] Care Team Providers Care Electrical Design Technician Name Role Phone Naina Lindsey MD Primary Care Provider [phone] Encounter Details Date Type Department Care Team (Late st Contact Info) Description 01/04/2015 Telephone [place] [phone] Camille Griffin RN Social History Tobacco Use [...] equipment services. They do not have a [place] provider licence so they will not be able to help with the wheelchair. Spoke with mom and she does not want to go through [employer] again. Will discuss with the team to see if there are other options in [place] for the wheelchair. documented in this encounter Plan of Treatment Upcoming Encounters Date Type Department Care Team (Late st Contact Info) Description 06/02/2024 12:30 PM EST Office [place] [address] Hollie Ambriz MD [facility] [place] [address] documented as of this encounter Visit Diagnoses Not on filedocumented in this encounter Care Teams Electrical Design Technician Relationship Specialty Start Date End Date Naina Lindsey MD [address] [place] [address] PCP - General 03/19/10 08/25/16 documented as of this encounter
--- OUTSIDE RECORDS SUMMARY | 2023-12-04 12:40 | XMS_ITS | Encounter Summary ---
Author Organization [facility] [place] [address] Care Team Providers Care Manager Night Name Role Phone Naina Lindsey MD Primary Care Provider [phone] Reason for Visit * Reason Comments Follow-up HCK / REMOVE DEE Hayes Encounter Details Date Type Department Care Team (Latest Contact Info) Description 06/08/2014 4:30 PM EST Office Visit [place] [address] Alek Sinha, ASSEMBLER FAUCETS [facility] DR PEDIAT[place] [address] Spasticity; Postoperative wound infection, subsequent encounter Discharge [...] this encounter Progress Notes * Alek Sinha, ASSEMBLER [employer] - 06/23/2014 3:02 PM EST Florin Cavazos was seen today in the pediatric neurosurgery clinic for a post-op follow up visit. Tana is a 18 year old girl with a history of increased tone which was managed with intrathecal baclofen. She underwent placement of an intrathecal baclofen pump in 2007 at the [facility]. Mother feels that the pump has not [...] PM EST Office [place] [address] Hollie Ambriz MD [facility] DR [place] [address] documented as of this encounter Visit Diagnoses Diagnosis Spasticity Abnormal involuntary movements Postoperative wound infection, subsequent encounter documented in this encounter Care Teams Manager Night Relationship Specialty Start Date End Date Naina Lindsey MD [address] [place] [address] PCP - General 03/19/10 08/25/16 documented as of this encounter
--- OUTSIDE RECORDS SUMMARY | 2023-12-04 12:40 | XMS_ITS | Encounter Summary ---
Author Organization [facility] Address [facility] [place] [address] Care Team Providers Care Vehicle Sales Professional Name Role Phone Naina Lindsey MD Primary Care Provider [phone] Encounter Details Date Type Department Care Team (Latest Contact Info) Description 11/09/2014 11:01 AM EDT - 11/09/2014 11:59 PM EDT Hospital Encounter XRay at [address] [place] [address] Acquired dysplasia of hip, unspecified laterality; Traumatic [...] PM EST Office [place] [address] Hollie Ambriz MD [facility] [place] [address] documented as of this encounter Procedures Procedure [...] limb documented in this encounter Care Teams Vehicle Sales Professional Relationship Specialty Start Date End Date Naina Lindsey MD [address] [place] [address] PCP - General 03/19/10 08/25/16 documented as of this encounter
--- OUTSIDE RECORDS SUMMARY | 2023-12-04 12:40 | XMS_ITS | Encounter Summary ---
Author Organization [facility] Address [facility] [place] [address] Care Team Providers Care Car Unloader Helper Name Role Phone Naina Lindsey MD Primary Care Provider [phone] Encounter Details Date Type Department Care Team (Late st Contact Info) Description 11/09/2014 9:31 AM EDT - 11/09/2014 11:00 AM EDT Hospital Encounter XRay at [address] [place] [address] Scoliosis Social History Tobacco Use Types Packs/Day [...] EST Office [place] [address] Hollie Ambriz MD [facility] [place] [address] documented as of this encounter Procedures Procedure [...] documented in this encounter Care Teams Car Unloader Helper Relationship Specialty Start Date End Date Naina Lindsey MD [address] [place] [address] PCP - General 03/19/10 08/25/16 documented as of this encounter
--- OUTSIDE RECORDS SUMMARY | 2023-12-04 12:40 | XMS_ITS | Encounter Summary ---
[place] [address] Care Team Providers Care Tax Intern Name Role Phone Naina Lindsey MD Primary Care Provider [phone] Reason for Visit * Reason Onset Date Comments Referral 09/13/2014 Encounter Details Date Type Department Care Team (Late st Contact Info) Description 09/13/2014 Telephone [place] [address] Emelyn Perez Referral Social History Tobacco Use [...] from referral: [facility] On a in [facility]. documented in this encounter Plan of Treatment Upcoming Encounters Date Type Department Care Team (Late st Contact Info) Description 06/02/2024 12:30 PM EST Office [place] [address] Hollie Ambriz MD [facility] [place] [address] documented as of this encounter Visit Diagnoses Not on filedocumented in this encounter Care Teams Tax Intern Relationship Specialty Start Date End Date Naina Lindsey MD [address] [place] [address] [place] [address] PCP - General 03/19/10 08/25/16 documented as of this encounter
--- OUTSIDE RECORDS SUMMARY | 2023-12-04 12:40 | XMS_ITS | Encounter Summary ---
Author Organization [facility] [place] [address] Care Team Providers Care Manager Of Corporate Communications Name Role Phone Naina Lindsey MD Primary Care Provider [phone] Reason for Referral * Consultation (Routine) - Closed Specialty Diagnoses / Procedures Referred By Contac t Referred To Contact Neurology Diagnoses Traumatic brain injury, without loss of consciousness, sequela Spasticity Contracture of elbow, left Mesha Cabral MD [facility] [place] [address] Myah Abdi, [facility] [place] [address] Referral ID Status Reason Start Date Expiration Date V isits Requested Visits Authorized [id number] Closed Consult, Test & Treat 07/31/2015 07/30/2016 1 1 * Consultation (Routine) - Closed Specialty Diagnoses / Procedures Referred By Contac t Referred To Contact Diagnoses Traumatic brain injury, without loss of consciousness, sequela Spasticity Contracture of elbow, left Mesha Cabral MD [facility] [place] [address] Unknown None Referral ID Status Reason Start Date Expiration Date V isits Requested Visits Authorized [id number] Closed Consult, Test & Treat 07/31/2015 01/27/2016 1 1 Reason for Visit * Reason Comments Right Leg Pain Delayed Development Childhood Encounter Details Date Type Department Care Team (Late st Contact Info) Description 07/31/2015 11:00 AM EDT Office [place] [address] Mesha Cabral MD [facility] [place] [address] Neuromuscular scoliosis of lumbar region; Traumatic brain [...] a followup for this established patient of [employer]. She is 20 years old and has an underlying diagnosis of spastic quadriplegic cerebral palsy. She is accompanied by her mother and care trainer. Recently it has been noted that she [...] advised Mother that I will be leaving [facility] at the end of September of this [...] needs. Provider: Mesha Cabral [place] [address] documented in this encounter Plan of Treatment Upcoming Encounters Date Type Department Care Team (Late st Contact Info) Description 06/02/2024 12:30 PM EST Office [place] [address] Hollie Ambriz MD [facility] [place] [address] Scheduled Referrals Name Type Priority Associated Diagnoses [...] Progression of remodeling and sclerosis about the [place] acetabulum and proximal right femoral fragment status [...] Progression of irregularity and remodeling about the [place] acetabulum. The femur remains gracile in nature. [...] Progression of irregularity and remodeling about the [place] acetabulum. The femurremains gracile in nature. Absent femoral head. IMPRESSION IMPRESSION: Progression of remodeling and sclerosis about the [place] acetabulum andproximal right femoral fragment status post [...] in this encounter Care Teams Manager Of Corporate Communications Relationship Specialty Start Date End Date Naina Lindsey MD [address] [place] [address] PCP - General 03/19/10 08/25/16 documented as of this encounter
--- OUTSIDE RECORDS SUMMARY | 2023-12-04 12:40 | XMS_ITS | Encounter Summary ---
Author Organization [facility] Address [facility] [place] [address] Care Team Providers Care Hydrogen Power Plant Engineer Name Role Phone Naina Lindsey MD Primary Care Provider [phone] Reason for Visit * Reason Comments Scoliosis Encounter Details Date Type Department Care Team (Late st Contact Info) Description 12/29/2014 9:00 AM EDT Office [place] [address] Ty Vogel MD [facility] [place] [address] Scoliosis Discharge Disposition: Home Social History Tobacco [...] history with care received both at [facility] and in [place]. PAST MEDICAL HISTORY: For full history, please [...] PM EST Office [place] [address] Hollie Ambriz MD [facility] [place] [address] documented as of this encounter Visit Diagnoses Diagnosis Scoliosis Scoliosis (and kyphoscoliosis), idiopathic documented in this encounter Care Teams Hydrogen Power Plant Engineer Relationship Specialty Start Date End Date Naina Lindsey MD [address] [place] [address] [place] [address] PCP - General 03/19/10 08/25/16 documented as of this encounter
--- OUTSIDE RECORDS SUMMARY | 2023-12-04 12:40 | XMS_ITS | Encounter Summary ---
Author Organization [facility] Address [facility] [place] [address] Care Team Providers Care Senior Case Manager Name Role Phone Naina Lindsey MD Primary Care Provider [phone] Encounter Details Date Type Department Care Team (Latest Contact Info) Description 07/31/2015 11:19 AM EDT - 07/31/2015 11:59 PM EDT Hospital Encounter XRay at [address] [place] [address] Mesha Cabral MD [facility] [place] [address] Neuromuscular scoliosis of lumbar region; Traumatic brain [...] PM EST Office [place] [address] Hollie Ambriz MD [facility] [place] [address] documented as of this encounter Procedures Procedure [...] Progression of remodeling and sclerosis about the [place] acetabulum and proximal right femoral fragment status [...] Progression of irregularity and remodeling about the [place] acetabulum. The femur remains gracile in nature. [...] Progression of irregularity and remodeling about the [place] acetabulum. The femurremains gracile in nature. Absent femoral head. IMPRESSION IMPRESSION: Progression of remodeling and sclerosis about the [place] acetabulum andproximal right femoral fragment status post [...] encounter documented in this encounter Care Teams Senior Case Manager Relationship Specialty Start Date End Date Naina Lindsey MD [address] [place] [address] PCP - General 03/19/10 08/25/16 documented as of this encounter
--- OUTSIDE RECORDS SUMMARY | 2023-12-04 12:40 | XMS_ITS | Encounter Summary ---
Author Organization [facility] Address [facility] [place] [address] Care Team Providers Care Tailor Helper Name Role Phone Naina Lindsey MD Primary Care Provider [phone] Reason for Visit * Reason Onset Date Comments Appointment 08/02/2015 Encounter Details Date Type Department Care Team (Late st Contact Info) Description 08/02/2015 Telephone [place] [address] Mesha Cabral MD [facility] DR [place] [address] Appointment Social History Tobacco Use Types Packs/Day [...] PM EST Office [place] [address] Hollie Ambriz MD [facility] [place] [address] documented as of this encounter Visit Diagnoses Not on filedocumented in this encounter Care Teams Tailor Helper Relationship Specialty Start Date End Date Naina Lindsey MD [address] [place] [address] PCP - General 03/19/10 08/25/16 documented as of this encounter
--- OUTSIDE RECORDS SUMMARY | 2023-12-04 12:40 | XMS_ITS | Encounter Summary ---
Author Organization [facility] [place] [address] Care Team Providers Care Spiral Machine Operator Name Role Phone Naina Lindsey MD Primary Care Provider [phone] Encounter Details Date Type Department Care Team (Late st Contact Info) Description 12/29/2014 Orders [place] [address] Mesha Cabral MD [facility] DR [place] [address] Acquired dysplasia of hip, unspecified laterality; Presence [...] EST Office Visit [place] [address] Hollie Ambriz MD [facility] [place] [address] documented as of this encounter Visit Diagnoses Diagnosis Acquired dysplasia of hip, unspecified laterality Presence of intrathecal baclofen pump Scoliosis Scoliosis (and kyphoscoliosis), idiopathic Spasticity Abnormal involuntary movements Traumatic brain injury, sequela documented in this encounter Care Teams Spiral Machine Operator Relationship Specialty Start Date End Date Naina Lindsey MD [address] [place] [address] [place] [address] PCP - General 03/19/10 08/25/16 documented as of this encounter
--- OUTSIDE RECORDS SUMMARY | 2023-12-04 12:40 | XMS_ITS | Encounter Summary ---
Author Organization [facility] Address [facility] [place] [address] Care Team Providers Care Card Seller Name Role Phone Naina Lindsey MD Primary Care Provider [phone] Reason for Referral * Consultation (Routine) - Closed Specialty Diagnoses / Procedures Referred By Contac t Referred To Contact Orthotics Diagnoses Traumatic brain injury, sequela Spasticity Scoliosis Mesha Cabral MD [facility] [place] [address] Referral ID Status Reason Start Date Expiration Date V isits Requested Visits Authorized [id number] Closed Consult, Test & Treat 11/09/2014 05/08/2015 3 3 Reason for Visit * Reason Comments Follow-up [place] Encounter Details Date Type Department Care Team (Late st Contact Info) Description 11/09/2014 10:00 AM EDT [place] [address] Mesha Cabral MD [facility] [place] [address] Acquired dysplasia of hip, unspecified laterality; Traumatic [...] when her orthopedic care was received at [facility], I do not have those notes [...] alignment where she had previously used a [place] type TLSO scoliosis brace, it does not [...] skin currently. Upper extremity exam reveals bilateral [id number] contractures of the shoulders, elbows, and wrists, [...] would have to be a referral to [facility] as I am no longer performing [...] PM EST Office [place] [address] Hollie Ambriz MD [facility] [place] [address] Scheduled Referrals Name Type Priority Associated Diagnoses [...] limb documented in this encounter Care Teams Card Seller Relationship Specialty Start Date End Date Naina Lindsey MD [address] [place] [address] PCP - General 03/19/10 08/25/16 documented as of this encounter
--- OUTSIDE RECORDS SUMMARY | 2023-12-04 12:41 | XMS_ITS | Encounter Summary ---
Author Organization [facility] [place] [address] Care Team Providers Care Supply Chain Analyst Name Role Phone Naina Lindsey MD Primary Care Provider [phone] Reason for Visit * Reason Comments Post-op Problem Encounter Details Date Type Department Care Team (Late st Contact Info) Description 05/26/2014 4:30 PM EST - 05/26/2014 7:03 PM EST Surgery [place] [address] Freddy Burciaga MD [facility] [place] [address] @I & D, OPEN, DEEP ABSCESS, LUMBAR, [...] Routine, Hospital Performed Vendor / contact information: [facility] Patient location post discharge: home Service requested: IV abx Start date: 05/26/2014 Responsible MD post discharge contact info: WILL Smith (Edit) Referral to Home Health - at DISCHARGE Routine, Clinic Performed Agency name and contact information: [facility] Patient location post discharge: home What services are requested: Registered Nurse, Home Health Aide, Physical Therapy, Occupational Therapy Start date: 05/26/2014 Responsible MD post discharge contact info: PCP PATIENT'S LOCATION: Tana Shelton [address] [place] [phone] (home) In discussion with the attending physician, it is certified that this patient is under their care and that they, or a Nurse Practitioner,Clinical Nurse specialist or Physician Director Of Application Development who is working directly with them, had [...] Continue with therapies OT: Continue with therapies PROCESS SUPERVISOR: Continue support HOME HEALTH CARE AGENCY: [facility] [employer]. PHONE: [phone] FAX: [phone] Start of care: 05/26/14 Please note that any additional orders needs or changes will need to be obtained from this patient's PCP: MD Coby BRAGG DR / [facility] [id number] All VNA agencies which cover the area of patient's residence have been reviewed, either verbally or in writing, and patient/family have chosen the home health care agency noted Emergency contact: After hours and weekends, call the [facility] hat brim and crown laminating operator at and ask them to page the neurosurgery resident insulation machine operator. documented in this encounter Medications at Time [...] (AVS) and given to the patient or reimbursement representative. 6) If VNA was ordered, I [...] 0.9% 50 mL Mini-Bag Plus 2 g XxorwytgjmvF4X ??? baclofen 10 mg Oral Nightly ??? levonorgestrel-ethinyl estradiol 1 tablet Oral Daily ??? polyethylene glycol 17 g Oral Daily ??? sodium chloride 0.9 % 5 mL Intravenous BID ??? diaZEPam 5 mg Oral BID Continuous Infusions: ??? sodium chloride 0.9% with potassium chloride 20 mEq 50 mL/hr (06/01/14 2095) PRN Meds:acetaminophen OR acetaminophen, flu vaccine (36 [...] elevated HR this am S: Kenneth Rocco. [facility], [id number] singing ABCs and counting along with stretches [...] pt to d/chome with support and continued PT/OT/ADULT CARE MANAGER/VNA services. Staff communication/Mobility Recommendations: Pt. Would benefit [...] timed interventions: 30 minutes for TherEx-F Pager: [phone] Mary Joe, OT Occupational Therapy Rehabilitation Department * Isra Perez RN - 06/01/2014 2:43 PM EST Patient Name: Tana Shelton Patient Age: 18 y.o. Birthdate: 1995 Admit date: 05/20/2014 Attending Physician: Jamaal Samuel MD OFFICE OF CARE MANAGEMENT Farhana Perez RN Pager: [phone] CLINICAL GEOGRAPHIC INFORMATION SYSTEM SURVEYOR PROGRESS NOTE e-DH reviewed. Report received from DEMI Sanchez. Patient continues to require acute inpatient care for the treatment of infection. Patient remains on triple abx while awaiting final cultures. [facility] and [facility] have been referred to for discharge. Met with patient's mother at bedside. Mom had multiple questions the other day regarding equipment for home. Mattress for hospital bed was ordered and delivered to home from [facility]. Tomasa Sling was ordered and is to be delivered by [facility] when it ships to [facility] warehouse. TLSO brace to be fitted by [facility]. Mom also inquired about a new motorized wheelchair. Called [facility] in [place] to see if patient would qualify, left message with Oliver- the rehab manager for [facility]. Patient will need a assessment and lot [...] 0.9% 50 mL Mini-Bag Plus 2 g NktqeubicdxW4V ??? baclofen 10 mg Oral Nightly ??? [...] has recovered and I can review the [facility] records and films * Natividad Esqueda, [...] family in a single story home in [place], [place]. Pt's mother reports that there is no stair requirement, and that she has all necessary equipment. Stairs: 0 without a rail to enter Baseline Mobility: Completely dependent for all care, home nursing VNA services 3x/week, school-based PT/OT/ADULT CARE MANAGER, pt due to receive a communication device [...] than in previous treatment session, counting withthis radio news writer during stretching Objective: Patient seen [...] internal rotators, adductors ?? Pt helped this radio news writer with opposite UE when performing [...] session, playing with toys, playfully tricking this radio news writer when counting during passive stretching, [...] exercise Natividad Esqueda PT, DPT 05/31/2014 Pager: [phone] Physical Therapy Inpatient Rehabilitation Department * Nathalie [...] OF CARE MANAGEMENT Farhana Perez RN Pager: [phone] CLINICAL GEOGRAPHIC INFORMATION SYSTEM SURVEYOR PROGRESS NOTE e-DH reviewed. Report received from DEMI Sanchez. Patient continues to require acute inpatient care for the treatment of infection. Patient is on triple abx. Patient needs a new mattress for her hospital bed at home. Patient's mother would like order placed with [employer]. Order pended and booking sent via [employer] Plan: CRC will continue to follow for [...] everything was closed. (per chart review, Dr. Cratbree 05/23/14.) Precautions/Special Considerations: fall risk; high risk [...] pt to d/chome with support and continued PT/OT/ADULT CARE MANAGER/VNA services. Staff communication/Mobility Recommendations: Pt. Would benefit [...] timed interventions: 45 minutes for TherEx Pager: [phone] Mary Joe OT Occupational Therapy Rehabilitation Department [...] 0.9% 50 mL Mini-Bag Plus 2 g GhdxtuinfseP4D ??? baclofen 10 mg Oral Nightly ??? [...] OF CARE MANAGEMENT Farhana Perez RN Pager: [phone] CLINICAL GEOGRAPHIC INFORMATION SYSTEM SURVEYOR PROGRESS NOTE e-DH reviewed. Report received from [...] as pt becomes available. Please contact this radio news writer with any further questions or concerns. Thank you. Pager: [phone] Mary Joe OTR/L Occupational Therapy Inpatient Rehabilitation [...] family in a single story home in [place], [place]. Pt's mother reports that there is no stair requirement, and that she has all necessary equipment. Stairs: 0 without a rail to enter Baseline Mobility: Completely dependent for all care, home nursing VNA services 3x/week, school-based PT/OT/ADULT CARE MANAGER, pt due to receive a communication device [...] pt very smiley today, counting with this radio news writer during stretching, showing off her [...] exercise Natividad Esqueda PT, DPT 05/29/2014 Pager: [phone] Physical Therapy Inpatient Rehabilitation Department * Wai [...] not hesitate to page us on pager [phone] with further questions or concerns. Patient discussed with Dr. Wai Crabtree. Dimple Messina MD Fellow, Infectious Disease 05/29/2014 ID Staff: Discussed with Dr. Messina. Agree with current regimen. This will be a very difficult regimen at [facility] some further discussion is needed. We [...] 0.9% 50 mL Mini-Bag Plus 2 g CjhhwrgfcudX3X ??? baclofen 10 mg Oral Nightly ??? [...] 0.9% 50 mL Mini-Bag Plus 2 g ZpoumelrrixL4L ??? baclofen 10 mg Oral Nightly ??? [...] CRC received call from EUNICE Hair, from [place], [place] or Asking for status as they will follow her after discharge for IV antibiotic treatment. She will need an OPAT order faxed to above agency when she is ready for discharge as well as administration teaching for home. When ready for discharge, [facility] [employer] PHONE: [phone] FAX: [phone] will also need to be updated. Referral had been made by previous CRC. Covering pager #[phone] for pager #[phone]. * Darius Maguire T - 05/27/2014 8:23 [...] 0.9% 50 mL Mini-Bag Plus 2 g PmsrqhhdbjwP1E ??? baclofen 10 mg Oral Nightly ??? [...] Dressing clean and dry Wound without fluctuance [address] Assessment/Plan:: 18 y.o. female s/p removal [...] family in a single story home in [place], [place]. Pt's mother reports that there is no stair requirement, and that she has all necessary equipment. Stairs: 0 without a rail to enter Baseline Mobility: Completely dependent for all care, home nursing VNA services 3x/week, school-based PT/OT/ADULT CARE MANAGER, pt due to receive a communication device [...] exercise Natividad Esqueda PT, DPT 05/26/2014 Pager: [phone] Physical Therapy Inpatient Rehabilitation Department * Freddy Burciaga MD - 05/26/2014 6:27 AM EST Neurosurgery - Inpatient Progress Note ID: Tana Shelton, 18 y.o. female s/p removal of retained hardware, washout of infection 05/20 POD 6 Interval Hx: -ALEKSANDRA -Neurologically stable Objective: Medications: Scheduled Meds: ??? cefTAZidime (FORTAZ) 2g vial attach to sodium chloride 0.9% 50 mL Mini-Bag Plus 2 g TplzpogrgebR5S ??? baclofen 10 mg Oral Nightly ??? [...] (05/26) or when appropriate. Please page this radio news writer if you have any questions, thank you. Natividad Esqueda PT Pager #[phone] Physical Therapy Inpatient Rehabilitation * Mary Joe, [...] pt to d/chome with support and continued PT/OT/ADULT CARE MANAGER/VNA services. Spoke to CRC this about thoracic [...] timed interventions: 27 minutes for TherEx Pager: [phone] Mary Joe OT Occupational Therapy Rehabilitation Department [...] 0.9% 50 mL Mini-Bag Plus 2 g OgldhflrssxQ7A ??? baclofen 10 mg Oral Nightly ??? [...] of Care Management Farhana Perez RN Pager: [phone] Clinical Licensed [employer] Real Estate Appraiser Home IV Antibiotic Therapy Referral Note. Report received from NeuroSurgery Team that patient will require continued home IV antibiotic therapy after discharge from the hospital. Met with patient/family to discuss vendor and visiting nurse choices for home IV antibiotic therapy. Reviewed Home Infusion Vendors and Home Health Agencies that serve patient???s address and accept patient???s insurance. Home Health Agency: Patient requested referral to [facility] [employer]. PHONE: [phone] FAX: [phone]. Referrals sent via edischarge. Home Infusion Vendor: Patient requested referral to [place], [place] Tel: or Fax: . Referrals sent [...] 0.9% 50 mL Mini-Bag Plus 2 g AxyoulcvbfmL1V ??? baclofen 10 mg Oral Nightly ??? [...] 0.9% 50 mL Mini-Bag Plus 2 g LqwcagpbvecS8T ??? baclofen 10 mg Oral Nightly ??? [...] PM EST Office of Care Management Clinical Licensed [employer] Real Estate Appraiser Patient Name: Tana Shelton : 1995, 18 [...] None on File (x) HEALTH /PRESCRIPTION COVERAGE: [facility] CURRENT HOME/COMMUNITY SERVICES/EQUIPMENT: DME: [facility] bed, wheelchair, tomasa lift, shower chair. Home Health Agency: [facility] PRIMARY CARE PHYSICIAN: NAINA LINDSEY MD [phone] POTENTIAL DISCHARGE NEEDS: Resume vna visits. Mother stated that she has [facility] - RN and Aide currently. Waiting to confirm this and pt needs. Might need home IV antibx. TRANSPORTATION @ D/C: family PLAN: CRC will continue to monitor progress, follow for continuity of care and assist with discharge planning while hospitalized Lesly Jesus RN Office of Care Management Clinical Licensed [employer] Real Estate Appraiser Covering for Farhana Chris [phone] Pager [phone] * Yandy Dasilva, PharmD - 05/22/2014 9:46 AM EST Clinical Pharmacist Note-Vanc Tana S Dirk [id number] 1995 Tana Barlowrd is a 18 y.o. [...] have. Alternately, during off-hours you may call [phone] to contact a pharmacist. Yandy Dasilva PHARMBenjamin Pager [phone] * Freddy Burciaga MD - 05/22/2014 6:59 [...] Clinically does not seem to be of BULK TANK DRIVER origin. Continue triple antibiotics. ID consult. Cultures [...] given to Diana RN Peds. Transferred to [place] [phone] with transport services, RN + family members. Please call Anurag ICU-RN at [phone] with regards to any questions post transfer. [...] mcL Appearance UA Hazy (*) Clear Spec [place] UA 1.026 1.002 - 1.030 Color UA [...] TANA SHELTON Ordered By: Freddy BURCIAGA MR#: [id number] LOC: OR /Sex: 1995 (18 years), Female PROCEDURE: Tissue Culture SOURCE: Back COLLECTED: 05/20/2014 20:20 FREE TEXT SOURCE: Lumbar Wound Culture STARTED: 05/20/2014 22:13 STAINS / PREPARATIONS Gram Stain Report Verified:05/20/2014 22:28 Few White Blood Cells seen No microorganisms seen. TISSUE CULTURE Result Value Ref Range Tissue Culture Value: Patient Name: TANA SHELTON Ordered By: EVITAFreddy IRENE MR#: [id number] LOC: OR /Sex: 1995 (18 years), Female [...] II initiated 0040: Report given to Jenn HEAD COOK info reviewed/questions answered, pt ready for transfer [...] to the planned procedure. Hand Hygiene: The metal trim erector did perform hand hygiene prior to line insertion. Catheter type: PICC Lot number: [id number] Procedure Technique: Skin was prepped with chlorhexidine. [...] warm and was flushed. They called the insulation machine operator neurosurgeon, who advised that they come to [...] BILATERAL performed by YAS OLIVER [facility] MAIN OR ??? Apply of hip casts, two legs 08/15/2010 CAST APPLICATION, HIP SPICA, BOTH LEGS performed by YAS OLIVER at [facility] MAIN OR ??? Removal deep implant 08/15/2010 REMOVAL IMPLANT, DEEP, BRUNO performed by YAS OLIVER at [facility] MAIN OR ??? Osteotomy femur shaft/supracondy 08/15/2010 ??OSTEOTOMY, FEMUR SHAFT OR SUPRACONDYLAR W/O FIXATION performed by YAS OLIVER at [facility] MAIN OR ??? Remove spinal canal catheter N/A 05/11/2014 REMOVAL OF INTRATHECAL OR EPIDURAL CATHETER performed by Jamaal Samuel MD at [facility] MAIN OR ??? Remove infusn device/pump N/A 05/11/2014 REMOVAL OF SPINE INFUSION PUMP performed by Jamaal Samuel MD at [facility] MAIN OR Medications: No current facility-administered [...] exposure:No Day care/year in school: [employer] Physical Exam: Vitals: Patient Vitals for the [...] mcL Appearance UA Hazy (*) Clear Spec [place] UA 1.026 1.002 - 1.030 Color UA [...] intrathecal baclofen pump in 2007 at the [facility]. Mother feels that the pump has not [...] requested: twin bed Vendor Name/Contact information: Rosas Jens New (Edit) Referral for Outpatient Antibiotics Routine, Hospital Performed Vendor / contact information: [facility] Patient location post discharge: home Service requested: IV abx Start date: 05/26/2014 Responsible MD post discharge contact info: PCP New (Edit) Referral to Home Health - at DISCHARGE Routine, Clinic Performed Agency name and contact information: [facility] Patient location post discharge: home What services are requested: Registered Nurse, Home Health Aide, Physical Therapy, Occupational Therapy Start date: 06/06/2014 Responsible MD post discharge contact info: PCP PATIENT'S LOCATION: Tana Shelton [address] [place] [phone] (home) In discussion with the attending physician, it is certified that this patient is under their care and that they, or a Nurse Practitioner,Clinical Nurse specialist or Physician Director Of Application Development who is working directly with them, had [...] Continue with therapies OT: Continue with therapies PROCESS SUPERVISOR: Continue support HOME HEALTH CARE AGENCY: [facility] PHONE: [phone] FAX: [phone] Start of care: 05/26/14 Please note that any additional orders needs or changes will need to be obtained from this patient's PCP: MD Coby BRAGG DR / [place] [address] All VNA agencies which cover the area of patient's residence have been reviewed, either verbally or in writing, and patient/family have chosen the home health care agency noted Emergency contact: After hours and weekends, call the [facility] hat brim and crown laminating operator at and ask them to page the neurosurgery resident insulation machine operator. * Plan of Care - Margot Monzon [...] 15 -- Score -- 50 -- OTHER [place] Fall Risk High (45 and higher) -- [...] yo. Supervision: Continuous; Moraima. Fannie at home food service team member at bedside this morning ; Mom arrived [...] Health Knowledge, Opportunity for Enhanced (Adult, NICU, [place], Obstetrics, Pediatric) Goal: Identify Signs and Symptoms [...] (Interventions Implemented as Appropriate) 05/25/14 0527 05/26/14 5065 Plan of Care Review Plan of Care Outcome Status ongoing (interventions implemented as appropriate) -- Progress -- improving Coping/Psychosocial Response Interventions Plan of Care Reviewed with -- patient;mother OUTCOME EVALUATION NOTE: OUTCOME SUMMARY: VSS, afebrile. CRAMELLA drain removed this afternoon. Dressings all c/d/i. [...] Health Knowledge, Opportunity for Enhanced (Adult, NICU, [place], Obstetrics, Pediatric) Goal: Identify Signs and Symptoms [...] AM EST Clinical Pharmacist Note-Vancomycin Tana Shelton [id number] 1995 Tana Shelton is a 18 y.o. [...] contact a pharmacist. Elmer Tobin, [place] Pager [phone] * Plan of Care - Leana Hicks [...] Outcome: Ongoing (Interventions Implemented as Appropriate) 05/27/14 9199 Infection, Risk/Actual (Adult, Obstetrics) Infection Prevention/Resolution/Control making progress toward outcome Problem: Fall/Trauma/Injury Risk (Pediatric) Goal: Identify Signs and Symptoms and Related Risk Factors Signs and symptoms and related risk factors are identified upon initiation of Human Response Clinical Practice Guideline (CPG) Outcome: Outcome (s) achieved Date Met: 05/27/14 05/22/14202905/25/14 923 Fall/Trauma/Injury Risk Personal Related Risk Factors (Fall/Trauma/Injury [...] Burciaga MD - 05/26/2014 4:52 PM EST [facility] Operative Note Patient Name: Tana Shelton : [id number] MR#: [id number] Case Date: 05/26/2014 Surgeon: Surgeon(s) and Role: [...] (Interventions Implemented as Appropriate) 05/22/14 0634 05/24/14 9654 Discharge Needs Assessment Concerns to be Addressed [...] Health Knowledge, Opportunity for Enhanced (Adult, NICU, [place], Obstetrics, Pediatric) Goal: Identify Signs and Symptoms and Related Risk Factors Signs and symptoms and related risk factors are identified upon initiation of Human Response Clinical Practice Guideline (CPG) Outcome: Ongoing (Interventions Implemented as Appropriate) * Plan of Care - Carisa Godwin RN - 05/25/2014 8:02 AM EST Problem: Health Knowledge, Opportunity for Enhanced (Adult, NICU, [place], Obstetrics, Pediatric) Goal: Knowledgeable about Health Subject/Topic Patient will demonstrate the desired outcomes. Outcome: Outcome (s) achieved Date Met: 05/25/14 05/25/14 0802 Health Knowledge, Opportunity for Enhanced (Adult, NICU, [place], Obstetrics, Pediatric) Knowledgeable about Health Subject/Topic achieves [...] bedside;lighting adjusted for task/safety;low bed;environmental modification 05/25/14 0530 Musculoskeletal Interventions Activity/Level of Assistance -- Self-Care [...] Outcome: Ongoing (Interventions Implemented as Appropriate) 05/24/14 9802 Plan of Care Review Plan of Care [...] HEAD, BILATERAL performed by YAS OLIVER [facility] OR ??? Apply of hip casts, two legs 08/15/2010 CAST APPLICATION, HIP SPICA, BOTH LEGS performed by YAS OLIVER at [facility] OR ??? Removal deep implant 08/15/2010 REMOVAL IMPLANT, DEEP, BRUNO performed by YAS OLIVER at [facility] OR ??? Osteotomy femur shaft/supracondy 08/15/2010 ??OSTEOTOMY, FEMUR SHAFT OR SUPRACONDYLAR W/O FIXATION performed by YAS OLIVER at [facility] OR ??? Remove spinal canal catheter N/A 05/11/2014 REMOVAL OF INTRATHECAL OR EPIDURAL CATHETER performed by Jamaal Samuel MD at [facility] OR ??? Remove infusn device/pump N/A 05/11/2014 REMOVAL OF SPINE INFUSION PUMP performed by Jamaal Samuel MD at [facility] OR ? ? I&d, post spine, lumb/sacr/lumbosac N/A 05/20/2014 @I & D, OPEN, DEEP ABSCESS, LUMBAR, SACRAL, LUMBOSACRAL performed by Freddy Burciaga MD at [facility] OR ??? Repr, dural/csf leak, not req laminectomy N/A 05/20/2014 @REPAIR DURAL\CSF LEAK,NOT REQUIRING LAMINECTOMY performed by Freddy Burciaga MD at [facility] OR Social and Developmental History: Patient lives with her family in a single level home in [place], [place]. Pt's mother reports that their home [...] has an older sister who lives in [place] and 3 younger brothers. She likes to [...] RN and mom assist. Feeding: per mom: CHEHALIS assist for use of utensils; not observed [...] to d/c home with support and continued PT/OT/ADULT CARE MANAGER/VNA services. Spoke with CRC about consultfor new [...] you for this occupational therapy consult. Pager: [phone] Mary Joe OT 05/24/2014 Occupational Therapy Rehabilitation [...] HEAD, BILATERAL performed by YAS OLIVER [facility] OR ??? Apply of hip casts, two legs 08/15/2010 CAST APPLICATION, HIP SPICA, BOTH LEGS performed by YAS OLIVER at [facility] OR ??? Removal deep implant 08/15/2010 REMOVAL IMPLANT, DEEP, BRUNO performed by YAS OLIVER at [facility] OR ??? Osteotomy femur shaft/supracondy 08/15/2010 ??OSTEOTOMY, FEMUR SHAFT OR SUPRACONDYLAR W/O FIXATION performed by YAS OLIVER at [facility] OR ??? Remove spinal canal catheter N/A 05/11/2014 REMOVAL OF INTRATHECAL OR EPIDURAL CATHETER performed by Jamaal Samuel MD at [facility] OR ??? Remove infusn device/pump N/A 05/11/2014 REMOVAL OF SPINE INFUSION PUMP performed by Jamaal Samuel MD at [facility] OR ? ? I&d, post spine, lumb/sacr/lumbosac N/A 05/20/2014 @I & D, OPEN, DEEP ABSCESS, LUMBAR, SACRAL, LUMBOSACRAL performed by Freddy Burciaga MD at [facility] OR ??? Repr, dural/csf leak, not req laminectomy N/A 05/20/2014 @REPAIR DURAL\CSF LEAK,NOT REQUIRING LAMINECTOMY performed by Freddy Burciaga MD at [facility] MAIN OR Social History: Patient lives with her family in a single story home in [place], [place]. Pt's mother reports that there is no stair requirement, and that she has all necessary equipment. Stairs: 0 without a rail to enter Baseline Mobility: Completely dependent for all care, home nursing VNA services 3x/week, school-based PT/OT/ADULT CARE MANAGER, pt due to receive a communication device [...] appropriate and joins in counting with this radio news writer while stretching Objective: Pt seen [...] minutes Natividad Esqueda PT, DPT 05/24/2014 Pager: [phone] Physical Therapy Inpatient Rehabilitation Department * Plan [...] based on it's ability to penetrate the BULK TANK DRIVER. We need todiscuss whether to pursue an [...] to 40 mEq. One dose of IV [id number] mEq administered per orders. Re-check of K [...] placement of baclofen pump in 2007 in [place]. Due to lack of efficacy the baclofen [...] and Lipase were normal. Per her daycare gamer, may be related to administration of oxycodone as this has been issue in the past. Cannotexclude component of baclofen withdrawal, but less likely. No current concern for acute BULK TANK DRIVER process. - Serial exams. Ensure daily BMs [...] although it may not have the best BULK TANK DRIVER penetration unless meninges are actually inflamed. - [...] fluid only. MD called for antiemetic and [place] tylenol. Zofran given when order receivedand med [...] PREVENTION: Assistance: Full assist, mom at bedside. private duty aide will be coming in today to [...] Burciaga MD - 05/21/2014 11:53 AM EST [facility] [facility] Operative Note Patient Name: Tana Shelton : [id number] MR#: [id number] Case Date: 05/20/2014 - 05/21/2014 Surgeon: Surgeon(s) [...] BILATERAL performed by YAS OLIVER [facility] MAIN OR ??? Apply of hip casts, two legs 08/15/2010 CAST APPLICATION, HIP SPICA, BOTH LEGS performed by YAS OLIVER at [facility] MAIN OR ??? Removal deep implant 08/15/2010 REMOVAL IMPLANT, DEEP, BRUNO performed by YAS OLIVER at [facility] MAIN OR ??? Osteotomy femur shaft/supracondy 08/15/2010 ??OSTEOTOMY, FEMUR SHAFT OR SUPRACONDYLAR W/O FIXATION performed by YAS OLIVER at [facility] MAIN OR ??? Remove spinal canal catheter N/A 05/11/2014 REMOVAL OF INTRATHECAL OR EPIDURAL CATHETER performed by Jamaal Samuel MD at [facility] MAIN OR ??? Remove infusn device/pump N/A 05/11/2014 REMOVAL OF SPINE INFUSION PUMP performed by Jamaal Samuel MD at [facility] MAIN OR No family history on [...] mcL Appearance UA Hazy (*) Clear Spec [place] UA 1.026 1.002 - 1.030 Color UA [...] TANA SHELTON Ordered By: Freddy BURCIAGA MR#: [id number] LOC: OR /Sex: 1995 (18 years), Female PROCEDURE: Tissue Culture SOURCE: Back COLLECTED: 05/20/2014 20:20 FREE TEXT SOURCE: Lumbar Wound Culture STARTED: 05/20/2014 22:13 STAINS / PREPARATIONS Gram Stain Report Verified:05/20/2014 22:28 Few White Blood Cells seen No microorganisms seen. TISSUE CULTURE Result Value Range Tissue Culture Value: Patient Name: TANA SHELTON Ordered By: Freddy BURCIAGA MR#: [id number] LOC: OR /Sex: 1995 (18 years), Female [...] PM EST Office [place] [address] Hollie Ambriz MD [facility] [place] [address] Pending Results Name Type Priority Associated Diagnoses [...] 06/02/2014 5:55 AM EST BASIC METABOLIC PANEL Routine 06/02/2014 5:55 AM EST HEMOGRAM Routine 06/01/2014 12:40 PM EST DIFFERENTIAL, AUTOMATED Routine 06/01/19 15 12:40 PM EST SEDIMENTATION RATE Routine 06/01/2014 12 :40 PM EST CBC (WITH DIFF) Routine 06/01/2014 12:40 PM EST CRP, CARDIAC RISK (HS CRP) Routine 06/01/2014 12:40 PM EST BASIC METABOLIC PANEL Routine 06/01/2014 12:40 PM EST HEMOGRAM Routine 05/30/2014 6:50 AM EST DIFFERENTIAL, AUTOMATED Routine 05/30/19 15 6:50 AM EST CBC (WITH DIFF) Routine 05/30/2014 6:50 AM EST BASIC METABOLIC PANEL Routine 05/30/2014 6:50 AM EST HEMOGRAM Routine 05/29/2014 7:13 AM EST DIFFERENTIAL, AUTOMATED Routine 05/29/19 15 7:13 AM EST CBC (WITH DIFF) Routine 05/29/2014 7:13 AM EST BASIC METABOLIC PANEL Routine 05/29/2014 7:13 AM EST HEMOGRAM Routine 05/28/2014 9:00 AM EST DIFFERENTIAL, AUTOMATED Routine 05/28/19 15 9:00 AM EST CBC (WITH DIFF) Routine 05/28/2014 9:00 AM EST VANCOMYCIN, TROUGH Timed 05/28/2014 9: 00 AM EST BASIC METABOLIC PANEL Routine 05/28/2014 9:00 AM EST HEMOGRAM Routine 05/27/2014 5:30 AM EST DIFFERENTIAL, AUTOMATED Routine 05/27/19 15 5:30 AM EST CBC (WITH DIFF) Routine 05/27/2014 5:30 AM EST BASIC METABOLIC PANEL Routine 05/27/2014 5:30 AM EST ANAEROBIC CULTURE [...] 05/26/2014 4:15 AM EST BASIC METABOLIC PANEL Routine 05/26/2014 4:[address] PICC [...] 05/25/2014 5:00 AM EST BASIC METABOLIC PANEL Routine 05/25/2014 5:00 AM EST HEMOGRAM Routine 05/24/2014 12:42 PM EST DIFFERENTIAL, AUTOMATED Routine 05/24/19 15 12:42 PM EST CBC (WITH DIFF) Routine 05/24/2014 12:42 PM EST BASIC METABOLIC PANEL Routine 05/24/2014 12:42 PM EST VANCOMYCIN, TROUGH Timed 05/24/2014 12 :29 PM EST ELECTROLYTES PANEL Routine 05/23/2014 12 :30 AM EST ELECTROLYTES PANEL Routine 05/22/2014 6: 20 PM EST PHOSPHORUS STAT 05/22/2014 12:45 PM EST MAGNESIUM STAT 05/22/2014 12:45 PM EST LIPASE STAT 05/22/2014 12:45 PM EST AMYLASE STAT 05/22/2014 12:45 PM EST COMPREHENSIVE METABOLIC PANEL STAT 05/22/2014 12:45 PM EST HEMOGRAM Routine 05/22/2014 6:10 AM EST DIFFERENTIAL, AUTOMATED Routine 05/22/19 15 6:10 AM EST CBC (WITH DIFF) Routine 05/22/2014 6:10 AM EST VANCOMYCIN, TROUGH Timed 05/22/2014 6: 10 AM EST BASIC METABOLIC PANEL Routine 05/22/2014 6:10 AM EST HEMOGRAM Routine 05/21/2014 4:23 AM EST DIFFERENTIAL, AUTOMATED Routine 05/21/19 15 4:23 AM EST CBC (WITH DIFF) Routine 05/21/2014 4:23 AM EST BASIC METABOLIC PANEL Routine 05/21/2014 4:23 AM EST REPAIR DURAL\CSF LEAK,NOT REQUIRING LAMINECTOMY Routine 05/20/2014 10:22 PM EST [employer] CULTURE Routine 5 10:01 PM EST [...] EST BUN STAT 05/20/2014 5:15 PM EST GLUCOSE STAT 05/20/2014 5:15 PM EST ELECTROLYTES PANEL STAT 05/20/2014 5: 15 PM EST documented in this encounter Results * SCAN DOC: ECG (06/03/2014 12:00 AM EST) Scanning Provider MEDIA MGR SCAN EXT O RDR/RSLT * Differential, Automated (06/02/2014 5:55 AM EST) Neutrophil % 64.5 % CERNER MILLENNIUM Neutrophil Absolute 4.75 1.50 - 6.30 x10(3)/mcL CERNER MILLENNIUM Lymph % 24.3 % CERNER MILLENNIUM Lymphocytes Abs 1.8 1.0 - 3.6 x10(3)/mcL CERNER MILLENNIUM Monocyte % 6.9 % CERNER MILLENNIUM Monocyte Abs 0.5 0.2 - 1.0 x10(3)/mcL CERNER MILLENNIUM Eos % 3.7 % CERNER MILLENNIUM Eosinophils Abs 0.3 0.0 - 0.5 x10(3)/mcL CERNER MILLENNIUM Basophil % 0.5 % CERNER MILLENNIUM Baso Absolute 0.0 0.0 - 0.2 x10(3)/mcL CERNER MILLENNIUM [...] performed. Immature Gran Absolute 0.01 0.00 - 0.05 x10(3)/mcL CERNER MILLENNIUM Blood specimen (specimen) 06/02/2014 5:55 AM EST 06/02/2014 6:09 AM EST Narrative Resulting Agency Comment Spec In Lab S Alek Burciaga MD HEMATOLOGY ORDERABLE S CERNER MILLENNIUM * (ABNORMAL) Hemogram (06/02/2014 5:55 AM EST) White Blood Cell 7.4 4.0 - 10.0 x10(3)/mc L CERNER MILLENNIUM Red Blood Cell 3.85(L) 3.93 - 5.22 x10(6)/mc L CERNER MILLENNIUM Hemoglobin 11.0(L) 11.2 - 15.7 gm/dL CERNER MILLENNIUM Hematocrit 33.8(L) 34.0 - 45.0 % CERNER MILLENNIUM Mean Cell Volume 87.8 79.0 - 94.0 fL CERNER MILLENNIUM Mean Cell Hemoglobin 28.6 26.6 - 32.2 pg CERNER MILLENNIUM Mean Cell Hemoglobin Concentration 32.5 32.0 - 36.5 gm/dL CERNER MILLENNIUM Platelet 362 145 - 370 x10(3)/mc L CERNER MILLENNIUM RDW Standard Deviation 45.9 35.0 - 46.0 fL CERNER MILLENNIUM RDW coefficient of variation 14.3 10.9 - 14.4 % CERNER MILLENNIUM Mean Platelet Volume 10.5 9.0 - 12.0 fL CERNER MILLENNIUM Blood specimen (specimen) 06/02/2014 5:55 AM EST 06/02/2014 6:09 AM EST Narrative Resulting Agency Comment Spec In Lab S Alek Burciaga MD HEMATOLOGY ORDERABLE S CERALIN TOMASENNIUM * (ABNORMAL) Basic Metabolic Panel (non-fasting) (06/02/2014 5:55 AM EST) Glucose 75 60 - 199 mg/dL CERNER MILLENNIUM Comment:Diabetes: >=200 mg/d L plus symptoms Blood Urea Nitrogen 5(L) 8 - 18 mg/dL CERNER MILLENNIUM Creatinine 0.30(L) 0.70 - 1.20 mg/dL CERNER MILLENNIUM Comment: Please note that the pediatric reference intervals supplied above were not validated at [facility]. Results from pediatric patients should be interpreted [...] 104 98 - 107 mmol/L CERNER MILLENNIUM Carbon Dioxide 23 22 - 31 mmol/L CERNER MILLENNIUM Anion Gap 12 5 - 15 mmol/L CERNER MILLENNIUM Calcium 8.6 8.5 - 10.5 mg/dL CERNER MILLENNIUM Est Glomerular Filtration Rate >60 >=60 CERNER MILLENNIUM Comment: This estimated [...] the following links into your internet browser. [email or web address] Blood specimen (specimen) 06/02/2014 5:55 AM EST 06/02/2014 6:09 AM EST Narrative Resulting Agency Comment Spec In Lab S Alek Burciaga MD CHEMISTRY ORDERABLES CERNER MILLENNIUM * (ABNORMAL) Sedimentation rate (06/01/2014 12:40 PM EST) Sedimentation Rate Automated 46(H) 0 - 20 mm/hr CERNER MILLENNIUM Blood specimen (specimen) Venous Draw / Unknown 06/01/2014 12:40 PM EST 06/01/2014 12:48 PM EST Narrative Resulting Agency Comment Spec In Lab S Alek Burciaga MD HEMATOLOGY ORDERABLE S Performing Organization Address [facility] de Phone Number LINDA BASHIR * High Sensitivity CRP (06/01/2014 12:40 PM EST) Pathologist [facility] C-Reactive Protein High Sensitivity 15.4 mg/L [facility] Comment: Interpretations: 1) For accurate cardiac risk [...] the test package insert) References: 1. Mandy TA et. al. ??AHA/CDC Scientific Statement: Markers of Inflammation and Cardiovascular Disease. ??Circulation 2003; 107:499-511 2. Ridker PM. ??Clinical applications of C-reactive protein for cardiovascular disease detection and prevention. ??Circulation 2003; 107:363-369 Blood specimen (specimen) Venous Draw / Unknown 06/01/2014 12:40 PM EST 06/01/2014 12:48 PM EST Narrative Resulting Agency Comment Spec In Lab S Alek Burciaga MD CHEMISTRY ORDERABLES Performing Organization Address [facility] Co de Phone Number LINDA BASHIR * Differential, Automated (06/01/2014 12:40 PM EST) Neutrophil % 66.8 % CERNER MILLENNIUM Neutrophil Absolute 4.96 1.50 - 6.30 x10(3)/mcL CERNER MILLENNIUM Lymph % 20.9 % CERNER MILLENNIUM Lymphocytes Abs 1.6 1.0 - 3.6 x10(3)/mcL CERNER MILLENNIUM Monocyte % 8.7 % CERNER MILLENNIUM Monocyte Abs 0.6 0.2 - 1.0 x10(3)/mcL CERNER MILLENNIUM Eos % 3.0 % CERNER MILLENNIUM Eosinophils Abs 0.2 0.0 - 0.5 x10(3)/mcL CERNER MILLENNIUM Basophil % 0.5 % CERNER MILLENNIUM Baso Absolute 0.0 0.0 - 0.2 x10(3)/mcL CERNER MILLENNIUM [...] performed. Immature Gran Absolute 0.01 0.00 - 0.05 x10(3)/mcL CERNER MILLENNIUM Blood specimen (specimen) 06/01/2014 12:40 PM EST 06/01/2014 12:48 PM EST Narrative Resulting Agency Comment Spec In Lab S Alek Burciaga MD HEMATOLOGY ORDERABLE S CERNER MILLENNIUM * (ABNORMAL) Hemogram (06/01/2014 12:40 PM EST) White Blood Cell 7.4 4.0 - 10.0 x10(3)/mc L CERNER MILLENNIUM Red Blood Cell 4.20 3.93 - 5.22 x10(6)/mc L CERNER MILLENNIUM Hemoglobin 12.0 11.2 - 15.7 gm/dL CERNER MILLENNIUM Hematocrit 36.5 34.0 - 45.0 % CERNER MILLENNIUM Mean Cell Volume 86.9 79.0 - 94.0 fL CERNER MILLENNIUM Mean Cell Hemoglobin 28.6 26.6 - 32.2 pg CERNER MILLENNIUM Mean Cell Hemoglobin Concentration 32.9 32.0 - 36.5 gm/dL CERNER MILLENNIUM Platelet 414(H) 145 - 370 x10(3)/mc L CERNER MILLENNIUM RDW Standard Deviation 44.9 35.0 - 46.0 fL CERNER MILLENNIUM RDW coefficient of variation 14.1 10.9 - 14.4 % CERNER MILLENNIUM Mean Platelet Volume 10.2 9.0 - 12.0 fL CERNER MILLENNIUM Blood specimen (specimen) 06/01/2014 12:40 PM EST 06/01/2014 12:48 PM EST Narrative Resulting Agency Comment Spec In Lab S Alek Burciaga MD HEMATOLOGY ORDERABLE S CERNER MILLENNIUM * (ABNORMAL) Basic Metabolic Panel (non-fasting) (06/01/2014 12:40 PM EST) Glucose 95 60 - 199 mg/dL CERNER MILLENNIUM Comment:Diabetes: >=200 mg/d L plus symptoms Blood Urea Nitrogen 4(L) 8 - 18 mg/dL CERNER MILLENNIUM Creatinine 0.38(L) 0.70 - 1.20 mg/dL CERNER MILLENNIUM Comment: Please note that the pediatric reference intervals supplied above were not validated at [facility]. Results from pediatric patients should be interpreted [...] 104 98 - 107 mmol/L CERNER MILLENNIUM Carbon Dioxide 25 22 - 31 mmol/L CERNER MILLENNIUM Anion Gap 11 5 - 15 mmol/L CERNER MILLENNIUM Calcium 9.0 8.5 - 10.5 mg/dL CERNER MILLENNIUM Est Glomerular Filtration Rate >60 >=60 CERNER MILLENNIUM Comment: This estimated [...] the following links into your internet browser. [email or web address] Blood specimen (specimen) 06/01/2014 12:40 PM EST 06/01/2014 12:48 PM EST Narrative Resulting Agency Comment Spec In Lab S Alek Burciaga MD CHEMISTRY ORDERABLES CERNER MILLENNIUM * Differential, Automated (05/30/2014 6:50 AM EST) Neutrophil % 69.6 % CERNER MILLENNIUM Neutrophil Absolute 5.30 1.50 - 6.30 x10(3)/mcL CERNER MILLENNIUM Lymph % 20.4 % CERNER MILLENNIUM Lymphocytes Abs 1.6 1.0 - 3.6 x10(3)/mcL CERNER MILLENNIUM Monocyte % 6.0 % CERNER MILLENNIUM Monocyte Abs 0.5 0.2 - 1.0 x10(3)/mcL CERNER MILLENNIUM Eos % 3.5 % CERNER MILLENNIUM Eosinophils Abs 0.3 0.0 - 0.5 x10(3)/mcL CERNER MILLENNIUM Basophil % 0.4 % CERNER MILLENNIUM Baso Absolute 0.0 0.0 - 0.2 x10(3)/mcL CERNER MILLENNIUM [...] performed. Immature Gran Absolute 0.01 0.00 - 0.05 x10(3)/mcL CERNER MILLENNIUM Blood specimen (specimen) 05/30/2014 6:50 AM EST 05/30/2014 7:02 AM EST Narrative Resulting Agency Comment Spec In Lab S Alek Burciaga MD HEMATOLOGY ORDERABLE S Performing Organization Address [facility] Co de Phone Number CERALIN TOMASENNIUM * (ABNORMAL) Hemogram (05/30/2014 6:50 AM EST) White Blood Cell 7.6 4.0 - 10.0 x10(3)/mc L CERNER MILLENNIUM Red Blood Cell 3.94 3.93 - 5.22 x10(6)/mc L CERNER MILLENNIUM Hemoglobin 11.3 11.2 - 15.7 gm/dL CERNER MILLENNIUM Hematocrit 34.7 34.0 - 45.0 % CERNER MILLENNIUM Mean Cell Volume 88.1 79.0 - 94.0 fL CERNER MILLENNIUM Mean Cell Hemoglobin 28.7 26.6 - 32.2 pg CERNER MILLENNIUM Mean Cell Hemoglobin Concentration 32.6 32.0 - 36.5 gm/dL CERNER MILLENNIUM Platelet 368 145 - 370 x10(3)/mc L CERNER MILLENNIUM RDW Standard Deviation 46.3(H) 35.0 - 46.0 fL CERNER MILLENNIUM RDW coefficient of variation 14.3 10.9 - 14.4 % CERNER MILLENNIUM Mean Platelet Volume 10.5 9.0 - 12.0 fL CERNER MILLENNIUM Blood specimen (specimen) 05/30/2014 6:50 AM EST 05/30/2014 7:02 AM EST Narrative Resulting Agency Comment Spec In Lab S Alek Burciaga MD HEMATOLOGY ORDERABLE S Performing Organization Address [facility] Co de Phone Number CERALIN KEMPIUM * (ABNORMAL) Basic Metabolic Panel (non-fasting) (05/30/2014 6:50 AM EST) Glucose 82 60 - 199 mg/dL CERNER MILLENNIUM Comment:Diabetes: >=200 mg/d L plus symptoms Blood Urea Nitrogen 4(L) 8 - 18 mg/dL CERNER MILLENNIUM Creatinine 0.29(L) 0.70 - 1.20 mg/dL CERNER MILLENNIUM Comment: Please note that the pediatric reference intervals supplied above were not validated at [facility]. Results from pediatric patients should be interpreted [...] 101 98 - 107 mmol/L CERNER MILLENNIUM Carbon Dioxide 24 22 - 31 mmol/L CERNER MILLENNIUM Anion Gap 12 5 - 15 mmol/L CERNER MILLENNIUM Calcium 8.5 8.5 - 10.5 mg/dL CERNER MILLENNIUM Est Glomerular Filtration Rate >60 >=60 CERNER MILLENNIUM Comment: This estimated [...] the following links into your internet browser. [email or web address] Blood specimen (specimen) 05/30/2014 6:50 AM EST 05/30/2014 7:02 AM EST Narrative Resulting Agency Comment Spec In Lab S Alek Burciaga MD CHEMISTRY ORDERABLES CERNER MILLENNIUM * Differential, Automated (05/29/2014 7:13 AM EST) Neutrophil % 64.1 % CERNER MILLENNIUM Neutrophil Absolute 4.20 1.50 - 6.30 x10(3)/mcL CERNER MILLENNIUM Lymph % 23.4 % CERNER MILLENNIUM Lymphocytes Abs 1.5 1.0 - 3.6 x10(3)/mcL CERNER MILLENNIUM Monocyte % 8.2 % CERNER MILLENNIUM Monocyte Abs 0.5 0.2 - 1.0 x10(3)/mcL CERNER MILLENNIUM Eos % 3.5 % CERNER MILLENNIUM Eosinophils Abs 0.2 0.0 - 0.5 x10(3)/mcL CERNER MILLENNIUM Basophil % 0.5 % CERNER MILLENNIUM Baso Absolute 0.0 0.0 - 0.2 x10(3)/mcL CERNER MILLENNIUM [...] performed. Immature Gran Absolute 0.02 0.00 - 0.05 x10(3)/mcL CERNER MILLENNIUM Blood specimen (specimen) 05/29/2014 7:13 AM EST 05/29/2014 7:13 AM EST Narrative Resulting Agency Comment Spec In Lab S Alek Burciaga MD HEMATOLOGY ORDERABLE S CERNER MILLENNIUM * (ABNORMAL) Hemogram (05/29/2014 7:13 AM EST) White Blood Cell 6.6 4.0 - 10.0 x10(3)/mc L CERNER MILLENNIUM Red Blood Cell 3.98 3.93 - 5.22 x10(6)/mc L CERNER MILLENNIUM Hemoglobin 11.4 11.2 - 15.7 gm/dL CERNER MILLENNIUM Hematocrit 35.0 34.0 - 45.0 % CERNER MILLENNIUM Mean Cell Volume 87.9 79.0 - 94.0 fL CERNER MILLENNIUM Mean Cell Hemoglobin 28.6 26.6 - 32.2 pg CERNER MILLENNIUM Mean Cell Hemoglobin Concentration 32.6 32.0 - 36.5 gm/dL CERNER MILLENNIUM Platelet 330 145 - 370 x10(3)/mc L CERNER MILLENNIUM RDW Standard Deviation 46.3(H) 35.0 - 46.0 fL CERNER MILLENNIUM RDW coefficient of variation 14.3 10.9 - 14.4 % CERNER MILLENNIUM Mean Platelet Volume 10.6 9.0 - 12.0 fL CERNER MILLENNIUM Blood specimen (specimen) 05/29/2014 7:13 AM EST 05/29/2014 7:13 AM EST Narrative Resulting Agency Comment Spec In Lab S Alek Burciaga MD HEMATOLOGY ORDERABLE S CERNER MILLENNIUM * (ABNORMAL) Basic Metabolic Panel (non-fasting) (05/29/2014 7:13 AM EST) Glucose 83 60 - 199 mg/dL CERNER MILLENNIUM Comment:Diabetes: >=200 mg/d L plus symptoms Blood Urea Nitrogen 5(L) 8 - 18 mg/dL CERNER MILLENNIUM Creatinine 0.31(L) 0.70 - 1.20 mg/dL CERNER MILLENNIUM Comment: Please note that the pediatric reference intervals supplied above were not validated at [facility]. Results from pediatric patients should be interpreted [...] 106 98 - 107 mmol/L CERNER MILLENNIUM Carbon Dioxide 22 22 - 31 mmol/L CERNER MILLENNIUM Anion Gap 14 5 - 15 mmol/L CERNER MILLENNIUM Calcium 8.6 8.5 - 10.5 mg/dL CERNER MILLENNIUM Est Glomerular Filtration Rate >60 >=60 CERNER MILLENNIUM Comment: This estimated [...] the following links into your internet browser. [email or web address] Blood specimen (specimen) 05/29/2014 7:13 AM EST 05/29/2014 7:13 AM EST Narrative Resulting Agency Comment Spec In Lab S Alek Burciaga MD CHEMISTRY ORDERABLES Performing Organization Address City/[facility] Co de Phone Number CERNER MILLENNIUM * Differential, Automated (05/28/2014 9:00 AM EST) Neutrophil % 75.3 % CERNER MILLENNIUM Neutrophil Absolute 5.73 1.50 - 6.30 x10(3)/mcL CERNER MILLENNIUM Lymph % 16.6 % CERNER MILLENNIUM Lymphocytes Abs 1.3 1.0 - 3.6 x10(3)/mcL CERNER MILLENNIUM Monocyte % 4.3 % CERNER MILLENNIUM Monocyte Abs 0.3 0.2 - 1.0 x10(3)/mcL CERNER MILLENNIUM Eos % 3.2 % CERNER MILLENNIUM Eosinophils Abs 0.2 0.0 - 0.5 x10(3)/mcL CERNER MILLENNIUM Basophil % 0.3 % CERNER MILLENNIUM Baso Absolute 0.0 0.0 - 0.2 x10(3)/mcL CERNER MILLENNIUM [...] performed. Immature Gran Absolute 0.02 0.00 - 0.05 x10(3)/mcL CERNER MILLENNIUM Blood specimen (specimen) 05/28/2014 9:00 AM EST 05/28/2014 9:23 AM EST Narrative Resulting Agency Comment Spec In Lab S Alek Burciaga MD HEMATOLOGY ORDERABLE S Performing Organization Address [facility] de Phone Number LINDA BASHIR * (ABNORMAL) Hemogram (05/28/2014 9:00 AM EST) White Blood Cell 7.6 4.0 - 10.0 x10(3)/mc L CERNER MILLENNIUM Red Blood Cell 3.90(L) 3.93 - 5.22 x10(6)/mc L CERNER MILLENNIUM Hemoglobin 11.3 11.2 - 15.7 gm/dL CERNER MILLENNIUM Hematocrit 34.7 34.0 - 45.0 % CERNER MILLENNIUM Mean Cell Volume 89.0 79.0 - 94.0 fL CERNER MILLENNIUM Mean Cell Hemoglobin 29.0 26.6 - 32.2 pg CERNER MILLENNIUM Mean Cell Hemoglobin Concentration 32.6 32.0 - 36.5 gm/dL CERNER MILLENNIUM Platelet 341 145 - 370 x10(3)/mc L CERNER MILLENNIUM RDW Standard Deviation 47.4(H) 35.0 - 46.0 fL CERNER MILLENNIUM RDW coefficient of variation 14.5(H) 10.9 - 14.4 % CERNER MILLENNIUM Mean Platelet Volume 10.4 9.0 - 12.0 fL CERNER MILLENNIUM Blood specimen (specimen) 05/28/2014 9:00 AM EST 05/28/2014 9:23 AM EST Narrative Resulting Agency Comment Spec In Lab S Alek Burciaga MD HEMATOLOGY ORDERABLE S Performing Organization Address [facility] Co de Phone Number LINDA BASHIR * Vancomycin, trough (05/28/2014 9:00 AM EST) Vancomycin, Trough 16.5 mg/L C ERNER MILLENNIUM Comment: Therapeutic range for complicated infections [...] S Alek Burciaga MD CHEMISTRY ORDERABLES CERALIN KEMPIUM * (ABNORMAL) Basic Metabolic Panel (non-fasting) (05/28/2014 9:00 AM EST) Glucose 121 60 - 199 mg/dL CERNER MILLENNIUM Comment:Diabetes: >=200 mg/d L plus symptoms Blood Urea Nitrogen 4(L) 8 - 18 mg/dL CERNER MILLENNIUM Creatinine 0.29(L) 0.70 - 1.20 mg/dL CERNER MILLENNIUM Comment: Please note that the pediatric reference intervals supplied above were not validated at [facility]. Results from pediatric patients should be interpreted [...] 104 98 - 107 mmol/L CERNER MILLENNIUM Carbon Dioxide 23 22 - 31 mmol/L CERNER MILLENNIUM Anion Gap 12 5 - 15 mmol/L CERNER MILLENNIUM Calcium 8.8 8.5 - 10.5 mg/dL CERNER MILLENNIUM Est Glomerular Filtration Rate >60 >=60 CERNER MILLENNIUM Comment: This estimated [...] the following links into your internet browser. [email or web address] Blood specimen (specimen) 05/28/2014 9:00 AM EST 05/28/2014 9:23 AM EST Narrative Resulting Agency Comment Spec In Lab S Alek Burciaga MD CHEMISTRY ORDERABLES CERNER MILLENNIUM * Differential, Automated (05/27/2014 5:30 AM EST) Neutrophil % 68.3 % CERNER MILLENNIUM Neutrophil Absolute 4.66 1.50 - 6.30 x10(3)/mcL CERNER MILLENNIUM Lymph % 23.6 % CERNER MILLENNIUM Lymphocytes Abs 1.6 1.0 - 3.6 x10(3)/mcL CERNER MILLENNIUM Monocyte % 5.7 % CERNER MILLENNIUM Monocyte Abs 0.4 0.2 - 1.0 x10(3)/mcL CERNER MILLENNIUM Eos % 2.0 % CERNER MILLENNIUM Eosinophils Abs 0.1 0.0 - 0.5 x10(3)/mcL CERNER MILLENNIUM Basophil % 0.3 % CERNER MILLENNIUM Baso Absolute 0.0 0.0 - 0.2 x10(3)/mcL CERNER MILLENNIUM [...] performed. Immature Gran Absolute 0.01 0.00 - 0.05 x10(3)/mcL CERNER MILLENNIUM Blood specimen (specimen) 05/27/2014 5:30 AM EST 05/27/2014 5:39 AM EST Narrative Resulting Agency Comment Spec In Lab S Alek Burciaga MD HEMATOLOGY ORDERABLE S Performing Organization Address City/[facility]/ZIP Co de Phone Number CERNER MILLENNIUM * (ABNORMAL) Hemogram (05/27/2014 5:30 AM EST) White Blood Cell 6.8 4.0 - 10.0 x10(3)/mc L CERNER MILLENNIUM Red Blood Cell 3.59(L) 3.93 - 5.22 x10(6)/mc L CERNER MILLENNIUM Hemoglobin 10.5(L) 11.2 - 15.7 gm/dL CERNER MILLENNIUM Hematocrit 31.9(L) 34.0 - 45.0 % CERNER MILLENNIUM Mean Cell Volume 88.9 79.0 - 94.0 fL CERNER MILLENNIUM Mean Cell Hemoglobin 29.2 26.6 - 32.2 pg CERNER MILLENNIUM Mean Cell Hemoglobin Concentration 32.9 32.0 - 36.5 gm/dL CERNER MILLENNIUM Platelet 321 145 - 370 x10(3)/mc L CERNER MILLENNIUM RDW Standard Deviation 46.9(H) 35.0 - 46.0 fL CERNER MILLENNIUM RDW coefficient of variation 14.3 10.9 - 14.4 % CERNER MILLENNIUM Mean Platelet Volume 10.5 9.0 - 12.0 fL CERNER MILLENNIUM Blood specimen (specimen) 05/27/2014 5:30 AM EST 05/27/2014 5:39 AM EST Narrative Resulting Agency Comment Spec In Lab S Alek Burciaga MD [facility]EMATOLOGY ORDERABLE S [facility] * (ABNORMAL) Basic Metabolic Panel (non-fasting) (05/27/2014 5:30 AM EST) [facility] Glucose 81 60 - 199 mg/dL CERNER MILLENNIUM Comment:Diabetes: >=200 mg/d L plus symptoms Blood Urea Nitrogen 4(L) 8 - 18 mg/dL CERNER MILLENNIUM Creatinine 0.21(L) 0.70 - 1.20 mg/dL CERNER MILLENNIUM Comment: Please note that the pediatric reference intervals supplied above were not validated at [facility]. Results from pediatric patients should be interpreted [...] 104 98 - 107 mmol/L CERNER MILLENNIUM Carbon Dioxide 22 22 - 31 mmol/L CERNER MILLENNIUM Anion Gap 11 5 - 15 mmol/L CERNER MILLENNIUM Calcium 8.0(L) 8.5 - 10.5 mg/dL CERNER MILLENNIUM Est Glomerular Filtration Rate >60 >=60 CERNER MILLENNIUM Comment: This estimated [...] the following links into your internet browser. [email or web address] Blood specimen (specimen) 05/27/2014 5:30 AM EST 05/27/2014 5:39 AM EST Narrative Resulting Agency Comment Spec In Lab Freddy Burciaga MD CHEMISTRY ORDERABLES [facility] * Anaerobic Culture (05/26/2014 5:30 PM EST) Anaerobic Culture ? Patient Name: TANA SHELTON ? Ordered By: Freddy BURCIAGA ? MR#: [id number] ?LOC: ??[place] ? /Sex: ??1995 (18 years), ? Female ? PROCEDURE: Anaerobic Culture ?SOURCE: Back ? COLLECTED: 05/26/2014 17:30 ?FREE TEXT SOURCE: Lumbar ? STARTED: 05/26/2014 17:41 ? FINAL REPORT ? Final Report ? Verified:2014 12:55 ? No anaerobic organisms isolated ? PRELIMINARY REPORT ? Preliminary Report ? Verified:2014 12:08 ? No anaerobic organisms isolated to date ? CERNER MILLENNIUM Structure of back of trunk (body structure) 05/26/2014 5:30 PM EST 05/26/2014 5:41 PM EST Comment:LUMBAR Narrative Resulting Agency Comment Spec In Lab Freddy Burciaga MD MICROBIOLOGY - GENER AL ORDERABLES [facility] * Tissue culture (05/26/2014 5:30 PM EST) Tissue Culture ? Patient Name: TANA SHELTON ? Ordered By: Freddy BURCIAGA ? MR#: [id number] ?LOC: ??[place] ? /Sex: ??1995 (18 years), ? Female ? PROCEDURE: Tissue Culture ?SOURCE: Back ? COLLECTED: 05/26/2014 17:30 ?FREE TEXT SOURCE: Lumbar ? STARTED: 05/26/2014 17:41 ? STAINS / PREPARATIONS ? Gram Stain Report ? Verified:05/26/19 18:39 ? Many White Blood Cells seen ? Rare Gram Positive Cocci seen ? FINAL REPORT ? Final Report ? Verified:05/30/19 09:44 ? Few Pseudomonas aeruginosa ? PRELIMINARY REPORT ? Preliminary Report ? Verified:05/28/19 11:18 ? Few Pseudomonas aeruginosa ? SUSCEPTIBILITY RESULTS ? Pseudomonas aeruginosa ?PAT Interp ? Aztreonam ?S ? Ceftazidime ?S ? Ciprofloxacin ?S ? Gentamicin ? S ? Levofloxacin ? S ? Meropenem ?S ? Piperacillin/Tazo bactam ?S ? Tobramycin ? S ? Patient: CRISTO SHELTONLIE S ? MR#: [id number] ? S=Susceptible ??I=Intermediate ??R=Resistant ??NA=Not Applicable ? DDS=Dose dependent-suscept ible ??NS=Non-suscepti ble ? [facility] Structure of back of trunk (body structure) 05/26/2014 5:30 PM EST 05/26/2014 5:41 PM EST Comment:LUMBAR Narrative Resulting Agency Comment Spec In Lab Freddy Burciaga MD MICROBIOLOGY - GENER AL ORDERABLES [facility] * Anaerobic Culture (05/26/2014 5:30 PM EST) Anaerobic Culture ? Patient Name: TANA SHELTON ? Ordered By: Freddy BURCIAGA ? MR#: [id number] ?LOC: ??[place] ? /Sex: ??1995 (18 years), [...] ? Ordered By: Freddy BURCIAGA ? MR#: [id number] ?LOC: ??[place] ? /Sex: ??1995 (18 years), [...] plates. ? Patient: TANA SHELTON ? MR#: [id number] ? SUSCEPTIBILITY RESULTS ? Coagulase negative Staphylococcus [...] (1) ? Gentamicin is not appropriate for [place]-therapy. ? (2) ? Penicillin resistant, Nafcillin susceptible Staphylococci are resistant to ? B-lactamase labile ? Penicillins including Ampicillin and Piperacillin, but susceptible to B- ? lactamase shelbie Penicillins ? (Nafcillin), B-lactamase inhibitor combinations, first and second ? generation Cephalosporins including ? Cefazolin, and to Cefepime and Meropenem. ? LINDA KEMPIUM Specimen of unknown material (specimen) 05/26/2014 5:30 PM EST 05/26/2014 5:41 PM EST Comment:ANTERIOR FLANK Narrative Resulting Agency Comment Spec In Lab S Alek Burciaag MD MICROBIOLOGY - GENER AL ORDERABLES Performing Organization Address City/State/[facility] Co de Phone Number [facility] * Anaerobic Culture (05/26/2014 5:30 PM EST) Anaerobic Culture ? Patient Name: TANA SHELTON ? Ordered By: Freddy BURCIAGA ? MR#: [id number] ?LOC: ??[place] ? /Sex: ??1995 (18 years), ? Female ? PROCEDURE: Anaerobic Culture ?SOURCE: Other ? COLLECTED: 05/26/2014 17:30 ?FREE TEXT SOURCE: Posterior flank ? STARTED: 05/26/2014 17:41 ? FINAL REPORT ? Final Report ? Verified:2014 12:54 ? No anaerobic organisms isolated ? PRELIMINARY REPORT ? Preliminary Report ? Verified:2014 12:08 ? No anaerobic organisms isolated to date ? CERNER THOMENNIUM Specimen of unknown material (specimen) 05/26/2014 5:30 PM EST 05/26/2014 5:41 PM EST Comment:POSTERIOR FLANK Narrative Resulting Agency Comment Spec In Lab S Alek Buricaga MD MICROBIOLOGY - GENER AL ORDERABLES [facility] * Tissue culture (05/26/2014 5:30 PM EST) Tissue Culture ? Patient Name: TANA SHELTON ? Ordered By: Freddy BURCIAGA ? MR#: [id number] ?LOC: ??[place] ? /Sex: ??1995 (18 years), [...] MD MICROBIOLOGY - GENER AL ORDERABLES CERNER THOMENNIUM * Antibody screen (05/26/2014 12:40 PM EST) Ab Screen Interp Negative CERNER MILLENNIUM Expires at [id number] on: [id number] CERNER MILLENNIUM Blood specimen (specimen) 05/26/2014 12:40 PM EST 05/26/2014 12:59 PM EST Narrative Resulting Agency Comment Spec In Lab S Alek Burciaga MD BLOOD BANK LAB ORDER MYRANDA CERALIN TOMASENNIUM * ABO/Rh Typing (05/26/2014 12:40 PM EST) ABORH Type O Pos LINDA BASHIR Blood specimen (specimen) 05/26/2014 12:40 PM EST 05/26/2014 12:59 PM EST Narrative Resulting Agency Comment Spec In Lab S Alek Burciaga MD BLOOD BANK LAB ORDER MYRANDA LINDA BASHIR * CT abdomen & pelvis [...] prior fragment retrieval. S Alek Burciaga MD [facility] CT [...] * Differential, Automated (05/26/2014 4:15 AM EST) Neutrophil % 63.7 % CERNER MILLENNIUM Neutrophil Absolute 4.73 1.50 - 6.30 x10(3)/mcL CERNER MILLENNIUM Lymph % 26.5 % CERNER MILLENNIUM Lymphocytes Abs 2.0 1.0 - 3.6 x10(3)/mcL CERNER MILLENNIUM Monocyte % 6.2 % CERNER MILLENNIUM Monocyte Abs 0.5 0.2 - 1.0 x10(3)/mcL CERNER MILLENNIUM Eos % 3.0 % CERNER MILLENNIUM Eosinophils Abs 0.2 0.0 - 0.5 x10(3)/mcL CERNER MILLENNIUM Basophil % 0.3 % CERNER MILLENNIUM Baso Absolute 0.0 0.0 - 0.2 x10(3)/mcL CERNER MILLENNIUM [...] performed. Immature Gran Absolute 0.02 0.00 - 0.05 x10(3)/mcL CERNER MILLENNIUM Blood specimen (specimen) 05/26/2014 4:15 AM EST 05/26/2014 4:35 AM EST Narrative Resulting Agency Comment Spec In Lab S Alek Burciaga MD HEMATOLOGY ORDERABLE S CERNER MILLENNIUM * (ABNORMAL) Hemogram (05/26/2014 4:15 AM EST) White Blood Cell 7.4 4.0 - 10.0 x10(3)/mc L CERNER MILLENNIUM Red Blood Cell 3.72(L) 3.93 - 5.22 x10(6)/mc L CERNER MILLENNIUM Hemoglobin 10.8(L) 11.2 - 15.7 gm/dL CERNER MILLENNIUM Hematocrit 33.0(L) 34.0 - 45.0 % CERNER MILLENNIUM Mean Cell Volume 88.7 79.0 - 94.0 fL CERNER MILLENNIUM Mean Cell Hemoglobin 29.0 26.6 - 32.2 pg CERNER MILLENNIUM Mean Cell Hemoglobin Concentration 32.7 32.0 - 36.5 gm/dL CERNER MILLENNIUM Platelet 378(H) 145 - 370 x10(3)/mc L CERNER MILLENNIUM RDW Standard Deviation 47.2(H) 35.0 - 46.0 fL CERNER MILLENNIUM RDW coefficient of variation 14.5(H) 10.9 - 14.4 % CERNER MILLENNIUM Mean Platelet Volume 10.7 9.0 - 12.0 fL CERNER MILLENNIUM Blood specimen (specimen) 05/26/2014 4:15 AM EST 05/26/2014 4:35 AM EST Narrative Resulting Agency Comment Spec In Lab S Alek Burciaga MD HEMATOLOGY ORDERABLE S CERNER MILLENNIUM * (ABNORMAL) Basic Metabolic Panel (non-fasting) (05/26/2014 4:15 AM EST) [facility] Glucose 88 60 - 199 mg/dL CERNER MILLENNIUM Comment:Diabetes: >=200 mg/d L plus symptoms Blood Urea Nitrogen 6(L) 8 - 18 mg/dL CERNER MILLENNIUM Creatinine 0.28(L) 0.70 - 1.20 mg/dL CERNER MILLENNIUM Comment: Please note that the pediatric reference intervals supplied above were not validated at [facility]. Results from pediatric patients should be interpreted [...] 104 98 - 107 mmol/L CERNER MILLENNIUM Carbon Dioxide 23 22 - 31 mmol/L CERNER MILLENNIUM Anion Gap 11 5 - 15 mmol/L CERNER MILLENNIUM Calcium 8.5 8.5 - 10.5 mg/dL CERNER MILLENNIUM Est Glomerular Filtration Rate >60 >=60 CERNER MILLENNIUM Comment: This estimated [...] the following links into your internet browser. [email or web address] Blood specimen (specimen) 05/26/2014 4:15 AM EST 05/26/2014 4:35 AM EST Narrative Resulting Agency Comment Spec In Lab S Alek Burciaga MD CHEMISTRY ORDERABLES LINDA BASHIR * Place PICC Line: Contact Vascular Access Page [phone] (05/25/2014 4:01 PM EST) Narrative [place] [...] to the planned procedure. Hand Hygiene: The metal trim erector did perform hand hygiene prior to line insertion. Catheter type: PICC Lot number: [id number] Procedure Technique: Skin was prepped with chlorhexidine. [...] focal. COMPARISON: Scoliosis radiographs from 12/16/2011 FINDINGS: Client Service And Consulting Manager views demonstrate severe rightward scoliotic deformity centered [...] No gross collections in the cervical spine. Client Service And Consulting Manager coronal image 8 of series 8 demonstrates [...] inf,focal. COMPARISON: Scoliosis radiographs from 12/16/2011 FINDINGS: Client Service And Consulting Manager views demonstrate severe rightward scoliotic deformity centered [...] abnormalities. No grosscollections in the cervical spine. Client Service And Consulting Manager coronal image 8 of series 8 demonstrates [...] Film and interpretation reviewed by the attending Authorizing Provider Result Bala Burciaga MD [facility] MRI ORDERABLES * MRI thoracic spine without contrast (05/25/2014 1:26 PM EST) Anatomical Region Laterality Modality T-spine Magnetic Resonan ce 05/25/2014 1:26 PM EST Narrative 05/25/2014 4:10 PM EST See accession #[id number] for dictation of this study. This report was reviewed by Andrade Rebolledo MD at 05/25/2014 4:05 PM Film and interpretation reviewed by the attending Procedure Note Andrade Roth MD - 05/25/2014 See accession #[id number] for dictation of this study. This report was reviewed by Andrade Rebolledo MD at 05/25/2014 4:05 PM Film and interpretation reviewed by the attending Alek Sinha MICROFILM CAMERA OPERATOR IMG MRI ORDERABLES * Differential, Automated (05/25/2014 5:00 AM EST) Neutrophil % 58.9 % CERNER MILLENNIUM Neutrophil Absolute 4.19 1.50 - 6.30 x10(3)/mcL CERNER MILLENNIUM Lymph % 31.8 % CERNER MILLENNIUM Lymphocytes Abs 2.3 1.0 - 3.6 x10(3)/mcL CERNER MILLENNIUM Monocyte % 6.0 % CERNER MILLENNIUM Monocyte Abs 0.4 0.2 - 1.0 x10(3)/mcL CERNER MILLENNIUM Eos % 2.7 % CERNER MILLENNIUM Eosinophils Abs 0.2 0.0 - 0.5 x10(3)/mcL CERNER MILLENNIUM Basophil % 0.3 % CERNER MILLENNIUM Baso Absolute 0.0 0.0 - 0.2 x10(3)/mcL CERNER MILLENNIUM [...] performed. Immature Gran Absolute 0.02 0.00 - 0.05 x10(3)/mcL CERNER MILLENNIUM Blood specimen (specimen) 05/25/2014 5:00 AM EST 05/25/2014 5:19 AM EST Narrative Resulting Agency Comment Spec In Lab S Alek Burciaga MD HEMATOLOGY ORDERABLE S CERNER MILLENNIUM * (ABNORMAL) Hemogram (05/25/2014 5:00 AM EST) White Blood Cell 7.1 4.0 - 10.0 x10(3)/mc L CERNER MILLENNIUM Red Blood Cell 3.95 3.93 - 5.22 x10(6)/mc L CERNER MILLENNIUM Hemoglobin 11.3 11.2 - 15.7 gm/dL CERNER MILLENNIUM Hematocrit 34.8 34.0 - 45.0 % CERNER MILLENNIUM Mean Cell Volume 88.1 79.0 - 94.0 fL CERNER MILLENNIUM Mean Cell Hemoglobin 28.6 26.6 - 32.2 pg CERNER MILLENNIUM Mean Cell Hemoglobin Concentration 32.5 32.0 - 36.5 gm/dL CERNER MILLENNIUM Platelet 358 145 - 370 x10(3)/mc L CERNER MILLENNIUM RDW Standard Deviation 47.5(H) 35.0 - 46.0 fL CERNER MILLENNIUM RDW coefficient of variation 14.7(H) 10.9 - 14.4 % CERNER MILLENNIUM Mean Platelet Volume 10.5 9.0 - 12.0 fL CERNER MILLENNIUM Blood specimen (specimen) 05/25/2014 5:00 AM EST 05/25/2014 5:19 AM EST Narrative Resulting Agency Comment Spec In Lab S Alek Burciaga MD HEMATOLOGY ORDERABLE S CERNER MILLENNIUM * (ABNORMAL) Basic Metabolic Panel (non-fasting) (05/25/2014 5:00 AM EST) [facility] Glucose 87 60 - 199 mg/dL CERNER MILLENNIUM Comment:Diabetes: >=200 mg/d L plus symptoms Blood Urea Nitrogen 6(L) 8 - 18 mg/dL CERNER MILLENNIUM Creatinine 0.27(L) 0.70 - 1.20 mg/dL CERNER MILLENNIUM Comment: Please note that the pediatric reference intervals supplied above were not validated at [facility]. Results from pediatric patients should be interpreted [...] 105 98 - 107 mmol/L CERNER MILLENNIUM Carbon Dioxide 23 22 - 31 mmol/L CERNER MILLENNIUM Anion Gap 12 5 - 15 mmol/L CERNER MILLENNIUM Calcium 8.4(L) 8.5 - 10.5 mg/dL CERNER MILLENNIUM Est Glomerular Filtration Rate >60 >=60 CERNER MILLENNIUM Comment: This estimated [...] the following links into your internet browser. [email or web address] Blood specimen (specimen) 05/25/2014 5:00 AM EST 05/25/2014 5:19 AM EST Narrative Resulting Agency Comment Spec In Lab S Alek Burciaga MD CHEMISTRY ORDERABLES CERNER MILLENNIUM * Differential, Automated (05/24/2014 12:42 PM EST) Neutrophil % 63.9 % CERNER MILLENNIUM Neutrophil Absolute 4.46 1.50 - 6.30 x10(3)/mcL CERNER MILLENNIUM Lymph % 27.6 % CERNER MILLENNIUM Lymphocytes Abs 1.9 1.0 - 3.6 x10(3)/mcL CERNER MILLENNIUM Monocyte % 5.7 % CERNER MILLENNIUM Monocyte Abs 0.4 0.2 - 1.0 x10(3)/mcL CERNER MILLENNIUM Eos % 2.4 % CERNER MILLENNIUM Eosinophils Abs 0.2 0.0 - 0.5 x10(3)/mcL CERNER MILLENNIUM Basophil % 0.3 % CERNER MILLENNIUM Baso Absolute 0.0 0.0 - 0.2 x10(3)/mcL CERNER MILLENNIUM [...] performed. Immature Gran Absolute 0.01 0.00 - 0.05 x10(3)/mcL CERNER MILLENNIUM Blood specimen (specimen) 05/24/2014 12:42 PM EST 05/24/2014 12:48 PM EST Narrative Resulting Agency Comment Spec In Lab S Alek Burciaga MD HEMATOLOGY ORDERABLE S Performing Organization Address [facility]/ZIP Co de Phone Number LINDA TOMASENNIUM * (ABNORMAL) Hemogram (05/24/2014 12:42 PM EST) White Blood Cell 7.0 4.0 - 10.0 x10(3)/mc L CERNER MILLENNIUM Red Blood Cell 4.47 3.93 - 5.22 x10(6)/mc L CERNER MILLENNIUM Hemoglobin 13.0 11.2 - 15.7 gm/dL CERNER MILLENNIUM Hematocrit 39.6 34.0 - 45.0 % CERNER MILLENNIUM Mean Cell Volume 88.6 79.0 - 94.0 fL CERNER MILLENNIUM Mean Cell Hemoglobin 29.1 26.6 - 32.2 pg CERNER MILLENNIUM Mean Cell Hemoglobin Concentration 32.8 32.0 - 36.5 gm/dL CERNER MILLENNIUM Platelet 389(H) 145 - 370 x10(3)/mc L CERNER MILLENNIUM RDW Standard Deviation 47.3(H) 35.0 - 46.0 fL CERNER MILLENNIUM RDW coefficient of variation 14.5(H) 10.9 - 14.4 % CERNER MILLENNIUM Mean Platelet Volume 10.6 9.0 - 12.0 fL CERNER MILLENNIUM Blood specimen (specimen) 05/24/2014 12:42 PM EST 05/24/2014 12:48 PM EST Narrative Resulting Agency Comment Spec In Lab S Alek Burciaga MD HEMATOLOGY ORDERABLE S CERALIN TOMASENNIUM * (ABNORMAL) Basic Metabolic Panel (non-fasting) (05/24/2014 12:42 PM EST) [facility] Glucose 78 60 - 199 mg/dL CERNER MILLENNIUM Comment:Diabetes: >=200 mg/d L plus symptoms Blood Urea Nitrogen 4(L) 8 - 18 mg/dL CERNER MILLENNIUM Comment:result rechecked-f Creatinine 0.39(L) 0.70 - 1.20 mg/dL CERNER MILLENNIUM Comment: Please note that the pediatric reference intervals supplied above were not validated at [facility]. Results from pediatric patients should be interpreted [...] 103 98 - 107 mmol/L CERNER MILLENNIUM Carbon Dioxide 25 22 - 31 mmol/L CERNER MILLENNIUM Anion Gap 14 5 - 15 mmol/L CERNER MILLENNIUM Calcium 8.9 8.5 - 10.5 mg/dL CERNER MILLENNIUM Est Glomerular Filtration Rate >60 >=60 CERNER MILLENNIUM Comment: This estimated [...] the following links into your internet browser. [email or web address] Blood specimen (specimen) 05/24/2014 12:42 PM EST 05/24/2014 12:42 PM EST Narrative Resulting Agency Comment Spec In Lab S Alek Burciaga MD CHEMISTRY ORDERABLES [facility] Drug Response [facility] * Vancomycin, trough (05/24/2014 12:29 PM EST) Vancomycin, Trough 12.4 mg/L C CHERYL MILLENNIUM Comment: Therapeutic range for complicated infections [...] Burciaga MD CHEMISTRY ORDERABLES Performing Organization Address [facility] de Phone Number CERALIN TOMASENNIUM * (ABNORMAL) Electrolytes panel (05/23/2014 12:30 AM [...] 107 98 - 107 mmol/L CERNER MILLENNIUM Carbon Dioxide 21(L) 22 - 31 mmol/L CERNER MILLENNIUM Anion Gap 13 5 - 15 mmol/L CERNER MILLENNIUM Blood specimen (specimen) 05/23/2014 12:30 AM EST 05/23/2014 1:32 AM EST Narrative Resulting Agency Comment Spec In Lab Freddy Burciaga MD CHEMISTRY ORDERABLES Performing Organization Address [facility] Co de Phone Number CERALIN MILLENNIUM [...] 103 98 - 107 mmol/L CERNER MILLENNIUM Carbon Dioxide 22 22 - 31 mmol/L CERNER MILLENNIUM [...] Smith MD CHEMISTRY ORDERABLES Performing Organization Address [facility]/ZIP Co de Phone Number [facility] * Magnesium (05/22/2014 12:45 PM EST) [...] Smith MD CHEMISTRY ORDERABLES Performing Organization Address [facility] Co de Phone Number CERNER THOMENNIUM * Amylase (05/22/2014 12:45 PM EST) Amylase 89 28 - 100 unit/L CERNER MILLENNIUM Blood specimen (specimen) 05/22/2014 12:45 PM EST 05/22/2014 1:03 PM EST Narrative Resulting Agency Comment Spec In Lab Lucho Smith MD CHEMISTRY ORDERABLES Performing Organization Address [facility] de Phone Number CERNER MILLENNIUM * (ABNORMAL) Comprehensive metabolic panel (non-fasting) (05/22/2014 12:45 PM EST) Glucose 81 60 - 199 mg/dL CERNER MILLENNIUM Comment:Diabetes: >=200 mg/d L plus symptoms Blood Urea Nitrogen 2(L) 8 - 18 mg/dL CERNER MILLENNIUM Creatinine 0.31(L) 0.70 - 1.20 mg/dL CERNER MILLENNIUM Comment: Please note that the pediatric reference intervals supplied above were not validated at [facility]. Results from pediatric patients should be interpreted [...] 104 98 - 107 mmol/L CERNER MILLENNIUM Carbon Dioxide 24 22 - 31 mmol/L CERNER MILLENNIUM Anion Gap 14 5 - 15 mmol/L CERNER MILLENNIUM Calcium 8.6 8.5 - 10.5 mg/dL CERNER MILLENNIUM Comment:result rechecked-mkf Protein, Total 7.1 6.4 - 8.3 gm/dL CERNER MILLENNIUM Albumin 3.9 3.2 - 5.2 gm/dL CERNER MILLENNIUM Aspartate Aminotransferase 13 0 - 30 unit/L CERNER MILLENNIUM Alanine Aminotransferase 16 0 - 30 unit/L CERNER MILLENNIUM Alkaline Phosphatase 65 40 - 104 unit/L CERNER MILLENNIUM Bilirubin, Total 0.2 0.2 - 1.3 mg/dL CERNER MILLENNIUM Bilirubin, Direct 0.1 0.0 - 0.3 mg/dL CERNER MILLENNIUM Est Glomerular Filtration Rate >60 >=60 CERNER MILLENNIUM Comment: This estimated [...] the following links into your internet browser. [email or web address] Blood specimen (specimen) 05/22/2014 12:45 PM EST 05/22/2014 1:03 PM EST Narrative Resulting Agency Comment Spec In Lab Lucho Smith MD CHEMISTRY ORDERABLES [facility] THOM[facility] * Differential, Automated (05/22/2014 6:10 AM EST) Neutrophil % 58.9 % CERNER MILLENNIUM Neutrophil Absolute 4.55 1.50 - 6.30 x10(3)/mcL CERNER MILLENNIUM Lymph % 33.5 % CERNER MILLENNIUM Lymphocytes Abs 2.6 1.0 - 3.6 x10(3)/mcL CERNER MILLENNIUM Monocyte % 6.2 % CERNER MILLENNIUM Monocyte Abs 0.5 0.2 - 1.0 x10(3)/mcL CERNER MILLENNIUM Eos % 0.8 % CERNER MILLENNIUM Eosinophils Abs 0.1 0.0 - 0.5 x10(3)/mcL CERNER MILLENNIUM Basophil % 0.3 % CERNER MILLENNIUM Baso Absolute 0.0 0.0 - 0.2 x10(3)/mcL CERNER MILLENNIUM [...] performed. Immature Gran Absolute 0.02 0.00 - 0.05 x10(3)/mcL CERNER MILLENNIUM Blood specimen (specimen) 05/22/2014 6:10 AM EST 05/22/2014 6:22 AM EST Narrative Resulting Agency Comment Spec In Lab S Alek Burciaga MD HEMATOLOGY ORDERABLE S CERNER MILLENNIUM * Hemogram (05/22/2014 6:10 AM EST) White Blood Cell 7.7 4.0 - 10.0 x10(3)/mcL CERNER MILLENNIUM Red Blood Cell 4.03 3.93 - 5.22 x10(6)/mcL CERNER MILLENNIUM Hemoglobin 11.6 11.2 - 15.7 gm/dL CERNER MILLENNIUM Hematocrit 35.0 34.0 - 45.0 % CERNER MILLENNIUM Mean Cell Volume 86.8 79.0 - 94.0 fL CERNER MILLENNIUM Mean Cell Hemoglobin 28.8 26.6 - 32.2 pg CERNER MILLENNIUM Mean Cell Hemoglobin Concentration 33.1 32.0 - 36.5 gm/dL CERNER MILLENNIUM Platelet 342 145 - 370 x10(3)/mcL CERNER MILLENNIUM RDW Standard Deviation 45.2 35.0 - 46.0 fL CERNER MILLENNIUM RDW coefficient of variation 14.2 10.9 - 14.4 % CERNER MILLENNIUM Mean Platelet Volume 10.7 9.0 - 12.0 fL CERNER MILLENNIUM Blood specimen (specimen) 05/22/2014 6:10 AM EST 05/22/2014 6:22 AM EST Narrative Resulting Agency Comment Spec In Lab S Alek Burciaga MD HEMATOLOGY ORDERABLE S Performing Organization Address [facility] Co de Phone Number LINDA BASHIR * Vancomycin, trough (05/22/2014 6:10 AM EST) Vancomycin, Trough 6.1 mg/L C ERNER MILLENNIUM Comment: Therapeutic range for complicated infections [...] Burciaga MD CHEMISTRY ORDERABLES Performing Organization Address [facility] de Phone Number LINDA BASHIR * (ABNORMAL) Basic Metabolic Panel (non-fasting) (05/22/2014 6:10 AM EST) Glucose 86 60 - 199 mg/dL [facility] MILL[facility] Comment:Diabetes: >=200 mg/d L plus symptoms Blood Urea Nitrogen 3(L) 8 - 18 mg/dL [facility] Creatinine 0.27(L) 0.70 - 1.20 mg/dL [facility] MILL[facility] Comment: Please note that the pediatric reference intervals supplied above were not validated at [facility]. Results from pediatric patients should be interpreted in conjunction to the patient's age, height and muscle mass. Sodium 141 135 - 145 mmol/L [facility] MILLENNIUM Potassium 2.9(Criti dean) 3.5 - [...] 104 98 - 107 mmol/L CERNER MILLENNIUM Carbon Dioxide 21(L) 22 - 31 mmol/L CERNER MILLENNIUM Anion Gap 16(H) 5 - 15 mmol/L CERNER MILLENNIUM Calcium 7.8(L) 8.5 - 10.5 mg/dL CERNER MILLENNIUM Est Glomerular Filtration Rate >60 >=60 CERNER MILLENNIUM Comment: This estimated [...] the following links into your internet browser. [email or web address] Blood specimen (specimen) 05/22/2014 6:10 AM EST 05/22/2014 6:22 AM EST Narrative Resulting Agency Comment Spec In Lab S Alek Burciaga MD CHEMISTRY ORDERABLES CERALIN MILLENNIUM * (ABNORMAL) Differential, Automated (05/21/2014 4:23 AM EST) Neutrophil % 94.4 % CERNER MILLENNIUM Neutrophil Absolute 10.59(H) 1.50 - 6.30 x10(3)/mc L CERNER MILLENNIUM Lymph % 4.5 % CERNER MILLENNIUM Lymphocytes Abs 0.5(L) 1.0 - 3.6 x10(3)/mc L CERNER MILLENNIUM Monocyte % 0.9 % CERNER MILLENNIUM Monocyte Abs 0.1(L) 0.2 - 1.0 x10(3)/mc L CERNER MILLENNIUM Eos % 0.0 % CERNER MILLENNIUM Eosinophils Abs 0.0 0.0 - 0.5 x10(3)/mc L CERNER MILLENNIUM Basophil % 0.1 % CERNER MILLENNIUM Baso Absolute 0.0 0.0 - 0.2 x10(3)/mc L CERNER [...] performed. Immature Gran Absolute 0.01 0.00 - 0.05 x10(3)/mc L CERNER MILLENNIUM Blood specimen (specimen) 05/21/2014 4:23 AM EST 05/21/2014 4:38 AM EST Narrative Resulting Agency Comment Spec In Lab S Alek Burciaga MD HEMATOLOGY ORDERABLE S CERNER MILLENNIUM * (ABNORMAL) Hemogram (05/21/2014 4:23 AM EST) White Blood Cell 11.2(H) 4.0 - 10.0 x10(3)/mc L CERNER MILLENNIUM Red Blood Cell 4.36 3.93 - 5.22 x10(6)/mc L CERNER MILLENNIUM Hemoglobin 12.8 11.2 - 15.7 gm/dL CERNER MILLENNIUM Hematocrit 38.2 34.0 - 45.0 % CERNER MILLENNIUM Mean Cell Volume 87.6 79.0 - 94.0 fL CERNER MILLENNIUM Mean Cell Hemoglobin 29.4 26.6 - 32.2 pg CERNER MILLENNIUM Mean Cell Hemoglobin Concentration 33.5 32.0 - 36.5 gm/dL CERNER MILLENNIUM Platelet 362 145 - 370 x10(3)/mc L CERNER MILLENNIUM RDW Standard Deviation 43.8 35.0 - 46.0 fL CERNER MILLENNIUM RDW coefficient of variation 13.9 10.9 - 14.4 % CERNER MILLENNIUM Mean Platelet Volume 10.9 9.0 - 12.0 fL CERNER MILLENNIUM Blood specimen (specimen) 05/21/2014 4:23 AM EST 05/21/2014 4:38 AM EST Narrative Resulting Agency Comment Spec In Lab S Alek Burciaga MD HEMATOLOGY ORDERABLE S CERALIN BASHIR * (ABNORMAL) Basic Metabolic Panel (non-fasting) (05/21/2014 4:23 AM EST) Glucose 107 60 - 199 mg/dL CERNER MILLENNIUM Comment:Diabetes: >=200 mg/d L plus symptoms Blood Urea Nitrogen 3(L) 8 - 18 mg/dL CERNER MILLENNIUM Comment:result rechecked- ll u Creatinine 0.30(L) 0.70 - 1.20 mg/dL CERNER MILLENNIUM Comment: Please note that the pediatric reference intervals supplied above were not validated at [facility]. Results from pediatric patients should be interpreted [...] 106 98 - 107 mmol/L CERNER MILLENNIUM Carbon Dioxide 19(L) 22 - 31 mmol/L CERNER MILLENNIUM Anion Gap 13 5 - 15 mmol/L CERNER MILLENNIUM Calcium 7.3(L) 8.5 - 10.5 mg/dL CERNER MILLENNIUM Est Glomerular Filtration Rate >60 >=60 CERNER MILLENNIUM Comment: This estimated [...] the following links into your internet browser. [email or web address] Blood specimen (specimen) 05/21/2014 4:23 AM EST 05/21/2014 4:38 AM EST Narrative Resulting Agency Comment Spec In Lab Freddy Burciaga MD CHEMISTRY ORDERABLES [facility] * Sales And Operations Trainee Culture (05/20/2014 10:01 PM EST) Sales And Operations Trainee Culture ? Patient Name: TANA SHELTON ? Ordered By: Freddy BURCIAGA ? MR#: [id number] ?LOC: ??[place] ? /Sex: ??1995 (18 years), ? Female ? PROCEDURE: Sales And Operations Trainee Culture ?SOURCE: Other ? COLLECTED: 05/20/2014 22:01 [...] ? Ordered By: Freddy BURCIAGA ? MR#: [id number] ?LOC: ??[place] ? /Sex: ??1995 (18 years), [...] ? Ordered By: Freddy BURCIAGA ? MR#: [id number] ?LOC: ??[place] ? /Sex: ??1995 (18 years), [...] ? Patient: TANA SHELTON S ? MR#: [id number] ? S=Susceptible ??I=Intermediate ??R=Resistant ??NA=Not Applicable ? DDS=Dose dependent-suscept ible ??NS=Non-suscepti ble ? CERNER MILLENNIUM Structure of back of trunk (body structure) 05/20/2014 9:25 PM EST 05/20/2014 10:12 PM EST Comment:LUMBAR WOUND CULTURE #2 Narrative Resulting Agency Comment Spec In Lab S Alek Burciaga MD MICROBIOLOGY - GENER AL ORDERABLES Performing Organization Address [facility] de Phone Number LINDA BASHIR * Anaerobic Culture (05/20/2014 8:20 PM EST) Anaerobic Culture ? Patient Name: TANA SHELTON ? Ordered By: Freddy BURCIAGA ? MR#: [id number] ?LOC: ??[place] ? /Sex: ??1995 (18 years), [...] - GENER AL ORDERABLES Performing Organization Address [facility]/State/ZIP Co de Phone Number LINDA BASHIR * Tissue culture (05/20/2014 8:20 PM EST) Tissue Culture ? Patient Name: TANA SHELTON ? Ordered By: Freddy BURCIAGA ? MR#: [id number] ?LOC: ??[place] ? /Sex: ??1995 (18 years), [...] EST) Urine Culture ? Patient Name: TANA SEHLTON ? Ordered By: BELKIS LOUIE ? MR#: [id number] ?LOC: ??[place] ? /Sex: ??1995 (18 years), ? Female ? PROCEDURE: Urine Culture ?SOURCE: U [facility] ? COLLECTED: 05/20/2014 18:46 ? STARTED: 05/20/2014 [...] Resulting Agency Comment Spec In Lab Belkis R Dufty MD MICROBIOLOGY - GENER AL ORDERABLES Performing Organization Address City/[facility]/ZIP Co de Phone Number LINDA KEMPIUM * (ABNORMAL) Urinalysis with microscopic (05/20/2014 6:46 PM EST) Glucose, Urine Dipstick Negative Negative mg/dL CERNER MILLENNIUM Protein, Urine Dipstick Negative Negative mg/dL CERNER MILLENNIUM Bilirubin, Urine Dipstick Negative Negative mg/dL CERNER MILLENNIUM Comment: Clinical correlation required for positive Urine Bilirubin results as false positive may occur with some drugs and drug related products. If a false positive is suspected a serum total bilirubin should be considered if clinically indicated. Urobilinogen, Urine Dipstick >=4.0(A) Normal mg/dL CERNER MILLENNIUM pH, Urn (dipstick) 7.0 5.0 - 8.0 CERNER MILLENNIUM Blood, Urine Dipstick Negative Negative mg/dL CERNER MILLENNIUM Ketone, Urine Dipstick 20(A) Negative mg/dL CERNER MILLENNIUM Nitrite, Urine Dipstick Negative Negative CERNER MILLENNIUM Leukocytes, Urine Dipstick Negative Negative mcL CERNER MILLENNIUM Appearance, Urine Dipstick Hazy(A) Clear CERNER MILLENNIUM Specific [place] Urine Automated 1.026 1.002 - 1.030 CERNER MILLENNIUM Color, Urine Dipstick Yellow Yellow CERNER MILLENNIUM RBC, Urine 32(H) 0 - 4 /HPF CERNER MILLENNIUM WBC, Urine 5 0 - 5 /HPF CERNER MILLENNIUM Bacteria, Urine Rare(A) None /HPF CERN ER MILLENNIUM Squamous Epithelial Cells, Urine 1 <=4 /HPF CERNER MILLENNIUM Transitional Epithelial Cells, Urine 1 <=1 /HPF CERNER MILLENNIUM Amorphous Crystals, Urine Rare(A) None /HPF CERNER MILLENNIUM Urine specimen (specimen) 05/20/2014 6:46 PM EST 05/20/2014 6:55 PM EST Narrative Resulting Agency Comment Spec In Lab Belkis Louie MD URINE ORDERABLES Performing Organization Address City/[facility]/ZIP Co de Phone Number LINDA KEMPIUM * L-Lactate2 Whole Blood (05/20/2014 6:17 PM EST) Lactate WB 1.6 0.5 - 2.2 mmol/L LINDA BASHIR Blood specimen (specimen) 05/20/2014 6:17 PM EST 05/20/2014 6:17 PM EST Belkis Louie MD CHEMISTRY ORDERABLES [facility] * Blood culture (05/20/2014 6:00 PM EST) Blood Culture ? Patient Name: TANA SHELTON ? Ordered By: BELKIS LOUIE ? MR#: [id number] ?LOC: ??[place] ? /Sex: ??1995 (18 years), [...] Louie MD CHEMISTRY ORDERABLES Performing Organization Address City/[facility]/ZIP Co de Phone Number CERALIN TOMASENNIUM * Differential, Automated (05/20/2014 5:15 PM EST) Neutrophil % 71.0 % CERNER MILLENNIUM Neutrophil Absolute 5.94 1.50 - 6.30 x10(3)/mcL CERNER MILLENNIUM Lymph % 21.5 % CERNER MILLENNIUM Lymphocytes Abs 1.8 1.0 - 3.6 x10(3)/mcL CERNER MILLENNIUM Monocyte % 6.0 % CERNER MILLENNIUM Monocyte Abs 0.5 0.2 - 1.0 x10(3)/mcL CERNER MILLENNIUM Eos % 1.2 % CERNER MILLENNIUM Eosinophils Abs 0.1 0.0 - 0.5 x10(3)/mcL CERNER MILLENNIUM Basophil % 0.2 % CERNER MILLENNIUM Baso Absolute 0.0 0.0 - 0.2 x10(3)/mcL CERNER MILLENNIUM [...] performed. Immature Gran Absolute 0.01 0.00 - 0.05 x10(3)/mcL CERNER MILLENNIUM Blood specimen (specimen) 05/20/2014 5:15 PM EST 05/20/2014 5:31 PM EST Narrative Resulting Agency Comment Spec In Lab Belkis Louie MD HEMATOLOGY ORDERABLE S CERNER MILLENNIUM * (ABNORMAL) Hemogram (05/20/2014 5:15 PM EST) White Blood Cell 8.4 4.0 - 10.0 x10(3)/mc L CERNER MILLENNIUM Red Blood Cell 4.80 3.93 - 5.22 x10(6)/mc L CERNER MILLENNIUM Hemoglobin 14.0 11.2 - 15.7 gm/dL CERNER MILLENNIUM Hematocrit 42.0 34.0 - 45.0 % CERNER MILLENNIUM Mean Cell Volume 87.5 79.0 - 94.0 fL CERNER MILLENNIUM Mean Cell Hemoglobin 29.2 26.6 - 32.2 pg CERNER MILLENNIUM Mean Cell Hemoglobin Concentration 33.3 32.0 - 36.5 gm/dL CERNER MILLENNIUM Platelet 405(H) 145 - 370 x10(3)/mc L CERNER MILLENNIUM RDW Standard Deviation 44.5 35.0 - 46.0 fL CERNER MILLENNIUM RDW coefficient of variation 13.9 10.9 - 14.4 % CERNER MILLENNIUM Mean Platelet Volume 10.8 9.0 - 12.0 fL CERNER MILLENNIUM Blood specimen (specimen) 05/20/2014 5:15 PM EST 05/20/2014 5:31 PM EST Narrative Resulting Agency Comment Spec In Lab Belkis Louie MD HEMATOLOGY ORDERABLE S CERALIN KEMPIUM * Blood culture (05/20/2014 5:15 PM EST) Blood Culture ? Patient Name: TANA SHELTON ? Ordered By: BELKIS LOUIE ? MR#: [id number] ?LOC: ??[place] ? /Sex: ??1995 (18 years), [...] growth at 4 days. ? [facility] Blood specimen (specimen) STRUCTURE OF LEFT HAND / Unknown 05/20/2014 5:15 PM EST 05/20/2014 7:17 PM EST Comment:HOLD UNTIL MD HULL Narrative Resulting Agency Comment Spec In Lab Belkis Louie MD MICROBIOLOGY - BLOOD ORDERABLES [facility] * Glucose, random (05/20/2014 5:15 PM EST) Glucose 81 60 - 199 mg/dL [facility] Comment:Diabetes: >=200 mg/d L plus symptoms Blood specimen (specimen) 05/20/2014 5:15 PM EST 05/20/2014 5:31 PM EST Narrative Resulting Agency Comment Spec In Lab Belkis Louie MD CHEMISTRY ORDERABLES Performing Organization Address [facility] de Phone Number [facility] * (ABNORMAL) Creatinine (05/20/2014 5:15 PM EST) Creatinine 0.37(L) 0.70 - 1.20 mg/dL [facility] Comment: Please note that the pediatric reference intervals supplied above were not validated at [facility]. Results from pediatric patients should be interpreted in conjunction to the patient's age, height and muscle mass. Est Glomerular Filtration Rate >60 >=60 [facility] Comment: This estimated GFR (eGFR) [...] the following links into your internet browser. [email or web address] Blood specimen (specimen) 05/20/2014 5:15 PM EST 05/20/2014 5:31 PM EST Narrative Resulting Agency Comment Spec In Lab Belkis Louie MD CHEMISTRY ORDERABLES Performing Organization Address [facility] de Phone Number [facility] * BUN (05/20/2014 5:15 PM EST) Blood Urea Nitrogen 9 8 - 18 mg/dL [facility] Blood specimen (specimen) 05/20/2014 5:15 PM EST 05/20/2014 5:31 PM EST Narrative Resulting Agency Comment Spec In Lab Belkis Louie MD CHEMISTRY ORDERABLES Performing Organization Address [facility] Co de Phone Number LINDA BASHIR [...] 101 98 - 107 mmol/L CERNER MILLENNIUM Carbon Dioxide 20(L) 22 - 31 mmol/L CERNER MILLENNIUM Anion Gap 17(H) 5 - 15 mmol/L CERNER MILLENNIUM Blood specimen (specimen) 05/20/2014 5:15 PM EST 05/20/2014 5:31 PM EST Narrative Resulting Agency Comment Spec In Lab Belkis Louie MD CHEMISTRY ORDERABLES Performing Organization Address [facility] Co de Phone Number LINDA BASHIR documented [...] Nely Boss, Indication 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 (Active or Suspected): 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 0616 (Given - Provider: Linsey Mcintyre RN)1446 (Given - Provider: Dolores Patino RN)2201 (Given - Provider: Linsey Mcintyre RN) 0627 (Given - Provider: Linsey Mcintyre RN)1410 (Given - Provider: Tsaha Yu)224 (Given - Provider: Margot Monzon RN) [...] 0900, Until Discontinued 0959 (Given - Provider: Doloers Patino RN) 1003 (Given - Provider: Dolores [...] 1832 1244 (New Bag - Provider: Dolores H Sukumar, RN)1330 (Stopped - Provider: Dolores Patino RN - Comment: OOb to WC with PT)1445 (Restarted - Provider: Dolores Patino RN) 1705 (New Bag - Provider: Dolores Patino RN) 1500 (Stopped - Provider: Elmre Cotto RN) PRN Medication Order 05/31/2014 06/01/2014 [...] scheduled level., STAT And Vancomycin, trough (CANCELED) New collection, Timed, PRN, Starting on 05/27/14 at 0848, [...] Routine documented in this encounter Care Teams Supply Chain Analyst Relationship Specialty Start Date End Date Naina Lindsey MD [address] [place] [address] PCP - General 03/19/10 08/25/16 documented as of this encounter
--- OUTSIDE RECORDS SUMMARY | 2023-12-04 12:41 | XMS_ITS | Encounter Summary ---
[place] [address] Care Team Providers Care Pediatric Psychologist Name Role Phone Naina Lindsey MD Primary Care Provider [phone] Encounter Details Date Type Department Care Team (Late st Contact Info) Description 05/26/2014 4:16 PM EST Anesthesia [place] [id number] Buster Rajput MD [facility] [place] [address] Yury Kruse MD [facility] [place] [address] Anesthesia Record Procedure Summary Procedure Name Responsible [...] by Iron Aden RN 06/02/14 1436 by Ramrio Aden LPN Incision 05/26/14; abdomen; o ther [...] FEMORAL HEAD, BILATERAL performed by BARRERA OLIVER [facility] OR ??? Apply of hip casts, two legs 08/15/2010 CAST APPLICATION, HIP SPICA, BOTH LEGS performed by BARRERA OLIVER at [facility] OR ??? Removal deep implant 08/15/2010 REMOVAL IMPLANT, DEEP, BRUNO performed by BARRERA OLIVER at [facility] OR ??? Osteotomy femur shaft/supracondy 08/15/2010 ??OSTEOTOMY, FEMUR SHAFT OR SUPRACONDYLAR W/O FIXATION performed by BARRERA OLIVER at [facility] OR ??? Remove spinal canal catheter N/A 05/11/2014 REMOVAL OF INTRATHECAL OR EPIDURAL CATHETER performed by Jamaal Samuel MD at [facility] OR ??? Remove infusn device/pump N/A 05/11/2014 REMOVAL OF SPINE INFUSION PUMP performed by Jamaal Samuel MD at [facility] OR ? ? I&d, post spine, lumb/sacr/lumbosac N/A 05/20/2014 @I & D, OPEN, DEEP ABSCESS, LUMBAR, SACRAL, LUMBOSACRAL performed by Freddy Isbell MD at [facility] OR ??? Repr, dural/csf leak, not req laminectomy N/A 05/20/2014 @REPAIR DURAL\CSF LEAK,NOT REQUIRING LAMINECTOMY performed by Freddy Isbell MD at [facility] OR History Substance Use Topics ??? Smoking status: Never Smoker ??? Smokeless tobacco: Never Used Comment: NO SMOKERS IN THE HOME ??? Alcohol Use: No History Drug Use No Allergies Allergen Reactions ??? Fluoxetine Other (See Comments) HIVES, HEART RACES ??? Tegaderm [Transparent Dressings] Itching and Dermatitis Please use [id number] Medications: MAR and/or home medications have been [...] PM EST Office [place] [address] Hollie Ambriz MD [facility] [place] [address] documented as of this encounter Visit Diagnoses [...] mg documented in this encounter Care Teams Pediatric Psychologist Relationship Specialty Start Date End Date Naina Lindsey MD [address] [place] [address] PCP - General 03/19/10 08/25/16 documented as of this encounter
--- OUTSIDE RECORDS SUMMARY | 2023-12-04 12:41 | XMS_ITS | Encounter Summary ---
Author Organization [facility] [place] [address] Care Team Providers Care Financial Rep Name Role Phone Naina Lindsey MD Primary Care Provider [phone] Encounter Details Date Type Department Care Team (Late st Contact Info) Description 05/23/2014 External Results [place] [phone] Unknown None Social History Tobacco Use Types [...] PM EST Office [place] [phone] Hollie Ambriz MD [facility] [place] [address] documented as of this encounter Procedures Procedure Name Priority Date/Time Associated Diagnosis Comments PASTE THINNER Routine 05/21/2014 documented in this encounter Results * rn resource nurse (05/21/2014) Unknown GENERAL SUPPLY ORDER MYRANDA documented in this encounter Visit Diagnoses Not on filedocumented in this encounter Care Teams Financial Rep Relationship Specialty Start Date End Date Naina Lindsey MD [address] [place] [place] [address] PCP - General 03/19/10 08/25/16 documented as of this encounter
--- OUTSIDE RECORDS SUMMARY | 2023-12-04 12:41 | XMS_ITS | Encounter Summary ---
[place] [address] Care Team Providers Care Construction Specialist Name Role Phone Naina Lindsey MD Primary Care Provider [phone] Encounter Details Date Type Department Care Team (Late st Contact Info) Description 05/20/2014 8:18 PM EST Anesthesia Event [place] [phone] Eli Alexander MD [facility] [place] [address] Neva Gómez MD [facility] [place] [address] Anesthesia Record Procedure Summary Procedure Name Responsible [...] 05/20/14; 1800; jugular vein, external left (neck); knob-cph-cpogbe catheter system; 18 gauge, 1 in length; [...] performed by BARRERA OLIVER [facility] MAIN OR ??? Apply of hip casts, two legs 08/15/2010 CAST APPLICATION, HIP SPICA, BOTH LEGS performed by BARRERA OLIVER at [facility] MAIN OR ??? Removal deep implant 08/15/2010 REMOVAL IMPLANT, DEEP, BRUNO performed by BARRERA OLIVER at [facility] MAIN OR ??? Osteotomy femur shaft/supracondy 08/15/2010 ??OSTEOTOMY, FEMUR SHAFT OR SUPRACONDYLAR W/O FIXATION performed by BARRERA OLIVER at [facility] MAIN OR ??? Remove spinal canal catheter N/A 05/11/2014 REMOVAL OF INTRATHECAL OR EPIDURAL CATHETER performed by Jamaal Samuel MD at [facility] MAIN OR ??? Remove infusn device/pump N/A 05/11/2014 REMOVAL OF SPINE INFUSION PUMP performed by Jamaal Samuel MD at [facility] MAIN OR History Substance Use Topics [...] Department Care Team (Irais Contact Info) Description 06/02/2024 12:30 PM EST Office Visit Infectious Disease at [facility] [place] [phone] Hollie Ambriz MD [facility] [place] [address] documented as of this encounter Visit Diagnoses [...] mg documented in this encounter Care Teams Construction Specialist Relationship Specialty Start Date End Date Naina Lindsey MD [address] [place] [address] PCP - General 03/19/10 08/25/16 documented as of this encounter
--- OUTSIDE RECORDS SUMMARY | 2023-12-04 12:41 | XMS_ITS | Encounter Summary ---
Author Organization [facility] Address [facility] [place] [address] Care Team Providers Care Harness Cutter Name Role Phone Naina Lindsey MD Primary Care Provider [phone] Reason for Visit * Reason Comments Post-op Problem Encounter Details Date Type Department Care Team (Latest Contact Info) Description 05/20/2014 8:13 PM EST - 06/02/2014 4:25 PM [facility] Hospital Encounter Pediatric [place] [address] Belkis Louie MD [facility] [place] [address] Freddy Burciaga MD [facility] [place] [address] Jamaal Samuel MD [facility] [place] [address] Febrile illness, acute Discharge Disposition: Home with [...] Routine, Hospital Performed Vendor / contact information: [facility] Patient location post discharge: home Service requested: IV abx Start date: 05/26/2014 Responsible MD post discharge contact info: PCP Luis (Edit) Referral to Home Health - at DISCHARGE Routine, Clinic Performed Agency name and contact information: [facility] Patient location post discharge: home What services are requested: Registered Nurse, Home Health Aide, Physical Therapy, Occupational Therapy Start date: 05/26/2014 Responsible MD post discharge contact info: PCP PATIENT'S LOCATION: Tana Hayes Dirk [address] [place] [phone] (home) In discussion with the attending physician, it is certified that this patient is under their care and that they, or a Nurse Practitioner,Clinical Nurse specialist or Physician Middle School English Teacher who is working directly with them, had [...] Continue with therapies OT: Continue with therapies DEVELOPMENTAL MATHEMATICS PROFESSOR: Continue support HOME HEALTH CARE AGENCY: [facility]. PHONE: [phone] FAX: [phone] Start of care: 05/26/14 Please note that any additional orders needs or changes will need to be obtained from this patient's PCP: MD Coby [address] / [place] [address] All A agencies which cover the area of patient's residence have been reviewed, either verbally or in writing, and patient/family have chosen the home health care agency noted Emergency contact: After hours and weekends, call the [facility] final block press operator at and ask them to page the neurosurgery resident front desk person. documented in this encounter Medications at [...] and given to the patient or retail field representative. 6) If VNA was ordered, I [...] 0.9% 50 mL Mini-Bag Plus 2 g [id number] ??? baclofen 10 mg Oral Nightly ??? [...] elevated HR this am S: Kenneth Valiente. [facility], [id number] singing ABCs and counting along with stretches [...] pt to d/chome with support and continued PT/OT/MARKETING PR INTERN/VNA services. Staff communication/Mobility Recommendations: Pt. Would benefit [...] timed interventions: 30 minutes for TherEx-F Pager: [phone] Mary Joe OT Occupational Therapy Rehabilitation Department * Isra Perez RN - 06/01/2014 2:43 PM EST Patient Name: Tana Shelton Patient Age: 18 y.o. Birthdate: 1995 Admit date: 05/20/2014 Attending Physician: Jamaal Samuel MD OFFICE OF CARE MANAGEMENT Farhana Perez RN Pager: [phone] CLINICAL GIS SOFTWARE DEVELOPER PROGRESS NOTE e-DH reviewed. Report received from DEMI Sanchez. Patient continues to require acute inpatient care for the treatment of infection. Patient remains on triple abx while awaiting final cultures. [facility] have been referred to for discharge. Met with patient's mother at bedside. Mom had multiple questions the other day regarding equipment for home. Mattress for hospital bed was ordered and delivered to home from [facility]. Tomasa Sling was ordered and is to be delivered by [facility] when it ships to [facility] warehouse. TLSO brace to be fitted by [facility]. Mom also inquired about a new motorized wheelchair. Called [facility] in [place] to see if patient would qualify, left message with Oliver- the director of rehabilitative services for [facility]. Patient will need a assessment [...] 0.9% 50 mL Mini-Bag Plus 2 g AhudlqrlvxfN5S ??? baclofen 10 mg Oral Nightly ??? [...] has recovered and I can review the [facility] records and films * Natividad [...] family in a single story home in [place], [place]. Pt's mother reports that there is no stair requirement, and that she has all necessary equipment. Stairs: 0 without a rail to enter Baseline Mobility: Completely dependent for all care, home nursing VNA services 3x/week, school-based PT/OT/MARKETING PR INTERN, pt due to receive a communication device [...] than in previous treatment session, counting withthis magnetic tape typewriter operator during stretching Objective: Patient seen for 45 [...] internal rotators, adductors ?? Pt helped this magnetic tape typewriter operator with opposite UE when performing stretching as [...] session, playing with toys, playfully tricking this magnetic tape typewriter operator when counting during passive stretching, and helping [...] exercise Natividad Esqueda PT, DPT 05/31/2014 Pager: [phone] Physical Therapy Inpatient Rehabilitation Department * Nathalie [...] OF CARE MANAGEMENT Farhana Perez RN Pager: [phone] CLINICAL GIS SOFTWARE DEVELOPER PROGRESS NOTE e-DH reviewed. Report received from DEMI Sanchez. Patient continues to require acute inpatient care for the treatment of infection. Patient is on triple abx. Patient needs a new mattress for her hospital bed at home. Patient's mother would like order placed with [employer]. Order pended and booking sent via GitHub Plan: [facility] will continue to follow for [...] pt to d/chome with support and continued PT/OT/MARKETING PR INTERN/VNA services. Staff communication/Mobility Recommendations: Pt. Would benefit [...] timed interventions: 45 minutes for TherEx Pager: [phone] Mary Joe OT Occupational Therapy Rehabilitation Department [...] 0.9% 50 mL Mini-Bag Plus 2 g TjdibaqwumxT3Y ??? baclofen 10 mg Oral Nightly ??? [...] OF CARE MANAGEMENT Farhana Perez RN Pager: [phone] CLINICAL GIS SOFTWARE DEVELOPER PROGRESS NOTE e-DH reviewed. Report received from [...] as pt becomes available. Please contact this magnetic tape typewriter operator with any further questions or concerns. Thank you. Pager: [phone] Mary Joe, OTR/L Occupational Therapy Inpatient Rehabilitation [...] family in a single story home in [place], [place]. Pt's mother reports that there is no stair requirement, and that she has all necessary equipment. Stairs: 0 without a rail to enter Baseline Mobility: Completely dependent for all care, home nursing VNA services 3x/week, school-based PT/OT/MARKETING PR INTERN, pt due to receive a communication device [...] pt very smiley today, counting with this magnetic tape typewriter operator during stretching, showing off her favorite toys [...] interventions: 55 minutes for functional therapeutic exercise Nativiadd Esqueda, PT, DPT 05/29/2014 Pager: [phone] Physical Therapy Inpatient Rehabilitation Department * Wai [...] not hesitate to page us on pager [phone] with further questions or concerns. Patient discussed [...] 0.9% 50 mL Mini-Bag Plus 2 g PlpqpiwhsnuS9Z ??? baclofen 10 mg Oral Nightly ??? [...] 0.9% 50 mL Mini-Bag Plus 2 g LprsmkbnxwpS7G ??? baclofen 10 mg Oral Nightly ??? [...] CRC received call from EUNICE Hair, from [place], [place] or Asking for status as they will follow her after discharge for IV antibiotic treatment. She will need an OPAT order faxed to above agency when she is ready for discharge as well as administration teaching for home. When ready for discharge, [facility] PHONE: [phone] FAX: [phone] will also need to be updated. Referral had been made by previous CRC. Covering pager #[phone] for pager #[phone]. * Darius Maguire T - 05/27/2014 8:23 [...] 0.9% 50 mL Mini-Bag Plus 2 g OxslqctsdgdJ8M ??? baclofen 10 mg Oral Nightly ??? [...] Dressing clean and dry Wound without fluctuance [address] Assessment/Plan:: 18 y.o. female s/p [...] family in a single story home in [place], [place]. Pt's mother reports that there is no stair requirement, and that she has all necessary equipment. Stairs: 0 without a rail to enter Baseline Mobility: Completely dependent for all care, home nursing VNA services 3x/week, school-based PT/OT/MARKETING PR INTERN, pt due to receive a communication device [...] Natividad J Cavagnaro, PT, DPT 05/26/2014 Pager: [phone] Physical Therapy Inpatient Rehabilitation Department * Freddy Burciaga MD - 05/26/2014 6:27 AM EST Neurosurgery - Inpatient Progress Note ID: Tana Shelton, 18 y.o. female s/p removal of retained hardware, washout of infection 05/20 POD 6 Interval Hx: -ALEKSANDRA -Neurologically stable Objective: Medications: Scheduled Meds: ??? cefTAZidime (FORTAZ) 2g vial attach to sodium chloride 0.9% 50 mL Mini-Bag Plus 2 g BjfasoqfjdmW9J ??? baclofen 10 mg Oral Nightly ??? [...] (05/26) or when appropriate. Please page this magnetic tape typewriter operator if you have any questions, thank you. Natividad Esqueda PT Pager #[phone] Physical Therapy Inpatient Rehabilitation * Mary Joe, [...] pt to d/chome with support and continued PT/OT/MARKETING PR INTERN/VNA services. Spoke to CRC this am about [...] timed interventions: 27 minutes for TherEx Pager: [phone] Mary Joe OT Occupational Therapy Rehabilitation Department [...] 0.9% 50 mL Mini-Bag Plus 2 g EglhzhjmgbdF4K ??? baclofen 10 mg Oral Nightly ??? [...] of Care Management Farhana Perez RN Pager: [phone] Clinical [place]ebble Mill Operator Home IV Antibiotic Therapy Referral Note. Report received from NeuroSurgery Team that patient will require continued home IV antibiotic therapy after discharge from the hospital. Met with patient/family to discuss vendor and visiting nurse choices for home IV antibiotic therapy. Reviewed Home Infusion Vendors and Home Health Agencies that serve patient???s address and accept patient???s insurance. Home Health Agency: Patient requested referral to [facility] [employer]. PHONE: [phone] FAX: [phone]. Referrals sent via edischarge. Home Infusion Vendor: Patient requested referral to [place], [place] [phone] or Fax: . Referrals sent via edischarge. [...] 0.9% 50 mL Mini-Bag Plus 2 g BwbmqwbispoI4E ??? baclofen 10 mg Oral Nightly ??? [...] 0.9% 50 mL Mini-Bag Plus 2 g DgafdvkhtcvQ3Q ??? baclofen 10 mg Oral Nightly ??? [...] PM EST Office of Care Management Clinical Pebble Mill Operator Patient Name: Tana Shelton : 1995, 18 [...] None on File (x) HEALTH /PRESCRIPTION COVERAGE: [facility] CURRENT HOME/COMMUNITY SERVICES/EQUIPMENT: DME: [place] - [facility] bed, wheelchair, tomasa lift, shower chair. Home Health Agency: [facility] PRIMARY CARE PHYSICIAN: NAINA LINDSEY MD [phone] POTENTIAL DISCHARGE NEEDS: Resume vna visits. Mother stated that she has [facility] - RN and Aide currently. Waiting to confirm this and pt needs. Might need home IV antibx. TRANSPORTATION @ D/C: family PLAN: [facility] will continue to monitor progress, follow for continuity of care and assist with discharge planning while hospitalized Lesly Jesus RN Office of Care Management Clinical [place]ble [place] Operator Covering for Farhana Chris [phone] Pager [phone] * Yandy Dasilva, PharmD - 05/22/2014 9:46 AM EST Clinical Pharmacist Note-Vanc Tana Barlowrd [id number] 1995 Tana Barlowrd is a 18 y.o. [...] have. Alternately, during off-hours you may call [phone] to contact a pharmacist. Yandy Dasilva, PHARMD Pager [phone] * Freddy Burciaga MD - 05/22/2014 6:59 [...] AND Vancomycin, trough AND Vancomycin Level - [facility] Order Reminder, oxyCODONE Vitals: Temp: [36.8 ??C [...] does not seem to be of SENIOR ANALYTICAL CHEMIST origin. Continue triple antibiotics. ID consult. Cultures [...] given to [facility]. Transferred to [place] [address] with transport services, RN + family members. Please call Anurag ICU-RN at [phone] with regards to any questions post transfer. [...] mcL Appearance UA Hazy (*) Clear Spec [place] UA 1.026 1.002 - 1.030 Color UA [...] SHELTON Ordered By: CELSONIKITETO Freddy DAILEY MR#: [id number] LOC: OR /Sex: 1995 (18 years), Female PROCEDURE: Tissue Culture SOURCE: Back COLLECTED: 05/20/2014 20:20 FREE TEXT SOURCE: Lumbar Wound Culture STARTED: 05/20/2014 22:13 STAINS / PREPARATIONS Gram Stain Report Verified:05/20/2014 22:28 Few White Blood Cells seen No microorganisms seen. TISSUE CULTURE Result Value Ref Range Tissue Culture Value: Patient Name: TANA SHELTON Ordered By: Freddy BURCIAGA MR#: [id number] LOC: OR /Sex: 1995 (18 years), Female [...] II initiated 0040: Report given to Jenn TECHNICAL TRAINING SPECIALIST info reviewed/questions answered, pt ready for [...] to the planned procedure. Hand Hygiene: The library science instructor did perform hand hygiene prior to line insertion. Catheter type: PICC Lot number: [id number] Procedure Technique: Skin was prepped with chlorhexidine. [...] warm and was flushed. They called the front desk person neurosurgeon, who advised that they come [...] BILATERAL performed by YAS OLIVER [facility] MAIN OR ??? Apply of hip casts, two legs 08/15/2010 CAST APPLICATION, HIP SPICA, BOTH LEGS performed by YAS OLIVER at [facility] MAIN OR ??? Removal deep implant 08/15/2010 REMOVAL IMPLANT, DEEP, BRUNO performed by YAS OLIVER at [facility] MAIN OR ??? Osteotomy femur shaft/supracondy 08/15/2010 ??OSTEOTOMY, FEMUR SHAFT OR SUPRACONDYLAR W/O FIXATION performed by YAS OLIVER at [facility] MAIN OR ??? Remove spinal canal catheter N/A 05/11/2014 REMOVAL OF INTRATHECAL OR EPIDURAL CATHETER performed by Jamaal Samuel MD at [facility] MAIN OR ??? Remove infusn device/pump N/A 05/11/2014 REMOVAL OF SPINE INFUSION PUMP performed by Jamaal Samuel MD at [facility] MAIN OR Medications: No current facility-administered [...] exposure:No Day care/year in school: [employer] Physical Exam: Vitals: Patient Vitals for the [...] mcL Appearance UA Hazy (*) Clear Spec [place] UA 1.026 1.002 - 1.030 Color UA [...] 05/21/14 0127 Lilli Esquivel MD Resident 05/21/14 2581 Associated attestation - Belkis Louie MD - [...] baclofen pump in 2007 at the [facility]. Mother feels that the pump has [...] Routine, Hospital Performed Vendor / contact information: [facility] Patient location post discharge: home Service requested: IV abx Start date: 05/26/2014 Responsible MD post discharge contact info: PCP New (Edit) Referral to Home Health - at DISCHARGE Routine, Clinic Performed Agency name and contact information: [facility] Patient location post discharge: home What services are requested: Registered Nurse, Home Health Aide, Physical Therapy, Occupational Therapy Start date: 06/06/2014 Responsible MD post discharge contact info: PCP PATIENT'S LOCATION: Tana Freddy Shelton [address] [place] [phone] (home) In discussion with the attending physician, it is certified that this patient is under their care and that they, or a Nurse Practitioner,Clinical Nurse specialist or Physician Middle School English Teacher who is working directly with them, had [...] Continue with therapies OT: Continue with therapies DEVELOPMENTAL MATHEMATICS PROFESSOR: Continue support HOME HEALTH CARE AGENCY: [facility] PHONE: [phone] FAX: [phone] Start of care: 05/26/14 Please note that any additional orders needs or changes will need to be obtained from this patient's PCP: NAINA LINDSEY MD [address] / [place] [id number] All VNA agencies which cover the area of patient's residence have been reviewed, either verbally or in writing, and patient/family have chosen the home health care agency noted Emergency contact: After hours and weekends, call the [facility] final block press operator at and ask them to page the neurosurgery resident front desk person. * Plan of Care - Margot [...] yo. Supervision: Continuous; Moraima. Fannie at home senior biostatistician at bedside this morning ; Mom arrived [...] Health Knowledge, Opportunity for Enhanced (Adult, NICU, Velpen, Obstetrics, Pediatric) Goal: Identify Signs and Symptoms [...] Health Knowledge, Opportunity for Enhanced (Adult, NICU, Velpen, Obstetrics, Pediatric) Goal: Identify Signs and Symptoms [...] AM EST Clinical Pharmacist Note-Vancomycin Tana Shelton [id number] 1995 Tana Shelton is a 18 y.o. [...] have. Alternately, during off-hours you may call [phone] to contact a pharmacist. Elmer Tobin PHARMD Pager [phone] * Plan of Care - Leana Hicks [...] Health Knowledge, Opportunity for Enhanced (Adult, NICU, Velpen, Obstetrics, Pediatric) Goal: Identify Signs and Symptoms [...] Health Knowledge, Opportunity for Enhanced (Adult, NICU, Velpen, Obstetrics, Pediatric) Goal: Identify Signs and Symptoms [...] Operative Note Patient Name: Tana Shelton : [id number] MR#: [id number] Case Date: 05/26/2014 Surgeon: Surgeon(s) and Role: [...] (Interventions Implemented as Appropriate) 05/22/14 0634 05/24/14 8764 Discharge Needs Assessment Concerns to be Addressed [...] Health Knowledge, Opportunity for Enhanced (Adult, NICU, Velpen, Obstetrics, Pediatric) Goal: Identify Signs and Symptoms [...] Health Knowledge, Opportunity for Enhanced (Adult, NICU, Velpen, Obstetrics, Pediatric) Knowledgeable about Health Subject/Topic achieves [...] (Interventions Implemented as Appropriate) 05/22/14 0634 05/24/14 7642 Discharge Needs Assessment Concerns to be Addressed [...] BILATERAL performed by YAS OLIVER [facility] OR ??? Apply of hip casts, two legs 08/15/2010 CAST APPLICATION, HIP SPICA, BOTH LEGS performed by YAS OLIVER at [facility] OR ??? Removal deep implant 08/15/2010 REMOVAL IMPLANT, DEEP, BRUNO performed by YAS OLIVER at [facility] OR ??? Osteotomy femur shaft/supracondy 08/15/2010 ??OSTEOTOMY, FEMUR SHAFT OR SUPRACONDYLAR W/O FIXATION performed by YAS OLIVER at [facility] OR ??? Remove spinal canal catheter N/A 05/11/2014 REMOVAL OF INTRATHECAL OR EPIDURAL CATHETER performed by Jamaal Samuel MD at [facility] OR ??? Remove infusn device/pump N/A 05/11/2014 REMOVAL OF SPINE INFUSION PUMP performed by Jamaal Samuel MD at [facility] OR ? ? I&d, post spine, lumb/sacr/lumbosac N/A 05/20/2014 @I & D, OPEN, DEEP ABSCESS, LUMBAR, SACRAL, LUMBOSACRAL performed by Freddy Burciaga MD at [facility] OR ??? Repr, dural/csf leak, not req laminectomy N/A 05/20/2014 @REPAIR DURAL\CSF LEAK,NOT REQUIRING LAMINECTOMY performed by Freddy Burciaga MD at [facility] MAIN OR Social and Developmental History: Patient lives with her family in a single level home in [place], [place]. Pt's mother reports that their home [...] has an older sister who lives in [place] and 3 younger brothers. She likes to [...] RN and mom assist. Feeding: per mom: VENETIE IRA assist for use of utensils; not observed [...] to d/c home with support and continued PT/OT/MARKETING PR INTERN/VNA services. Spoke with [facility] about consultfor new [...] you for this occupational therapy consult. Pager: [phone] Mary Joe OT 05/24/2014 Occupational Therapy Rehabilitation [...] BILATERAL performed by YAS OLIVER [facility] MA[facility] OR ??? Apply of hip casts, two legs 08/15/2010 CAST APPLICATION, HIP SPICA, BOTH LEGS performed by YAS OLIVER at [facility] MAIN OR ??? Removal deep implant 08/15/2010 REMOVAL IMPLANT, DEEP, BRUNO performed by YAS OLIVER at [facility] MA[facility] OR ??? Osteotomy femur shaft/supracondy 08/15/2010 ??OSTEOTOMY, FEMUR SHAFT OR SUPRACONDYLAR W/O FIXATION performed by YAS OLIVER at [facility] MA[facility] OR ??? Remove spinal canal catheter N/A 05/11/2014 REMOVAL OF INTRATHECAL OR EPIDURAL CATHETER performed by Jamaal Samuel MD at [facility] MA[facility] OR ??? Remove infusn device/pump N/A 05/11/2014 REMOVAL OF SPINE INFUSION PUMP performed by Jamaal Samuel MD at [facility] MA[facility] OR ? ? I&d, post spine, lumb/sacr/lumbosac N/A 05/20/2014 @I & D, OPEN, DEEP ABSCESS, LUMBAR, SACRAL, LUMBOSACRAL performed by Freddy Burciaga MD at [facility] MA[facility] OR ??? Repr, dural/csf leak, not req laminectomy N/A 05/20/2014 @REPAIR DURAL\CSF LEAK,NOT REQUIRING LAMINECTOMY performed by Freddy Burciaga MD at [facility] MA[facility] OR Social History: Patient lives with her family in a single story home in [place], [place]. Pt's mother reports that there is no stair requirement, and that she has all necessary equipment. Stairs: 0 without a rail to enter Baseline Mobility: Completely dependent for all care, home nursing VNA services 3x/week, school-based PT/OT/MARKETING PR INTERN, pt due to receive a communication device [...] appropriate and joins in counting with this magnetic tape typewriter operator while stretching Objective: Pt seen for evaluation [...] minutes Natividad Esqueda PT, DPT 05/24/2014 Pager: [phone] Physical Therapy Inpatient Rehabilitation Department * Plan [...] on it's ability to penetrate the SENIOR ANALYTICAL CHEMIST. We need todiscuss whether to pursue an [...] MD * Plan of Care - Jigna Lorenzaan RN - 05/23/2014 5:10 AM EST Problem: [...] placement of baclofen pump in 2007 in [place]. Due to lack of efficacy the baclofen [...] and Lipase were normal. Per her daycare reducing system operator, may be related to administration of oxycodone as this has been issue in the past. Cannotexclude component of baclofen withdrawal, but less likely. No current concern for acute SENIOR ANALYTICAL CHEMIST process. - Serial exams. Ensure daily BMs [...] it may not have the best SENIOR ANALYTICAL CHEMIST penetration unless meninges are actually inflamed. - [...] fluid only. MD called for antiemetic and [place] tylenol. Zofran given when order receivedand med [...] PREVENTION: Assistance: Full assist, mom at bedside. special education aide will be coming in today to [...] Operative Note Patient Name: Tana Shelton : [id number] MR#: [id number] Case Date: 05/20/2014 - 05/21/2014 Surgeon: Surgeon(s) [...] BILATERAL performed by YAS OLIVER [facility] MA[facility] OR ??? Apply of hip casts, two legs 08/15/2010 CAST APPLICATION, HIP SPICA, BOTH LEGS performed by YAS OLIVER at [facility] MA[facility] OR ??? Removal deep implant 08/15/2010 REMOVAL IMPLANT, DEEP, BRUNO performed by YAS OLIVER at [facility] MA[facility] OR ??? Osteotomy femur shaft/supracondy 08/15/2010 ??OSTEOTOMY, FEMUR SHAFT OR SUPRACONDYLAR W/O FIXATION performed by YAS OLIVER at [facility] MA[facility] OR ??? Remove spinal canal catheter N/A 05/11/2014 REMOVAL OF INTRATHECAL OR EPIDURAL CATHETER performed by Jamaal Samuel MD at [facility] MA[facility] OR ??? Remove infusn device/pump N/A 05/11/2014 REMOVAL OF SPINE INFUSION PUMP performed by Jamaal Samuel MD at [facility] MA[facility] OR No family history on [...] mcL Appearance UA Hazy (*) Clear Spec [place] UA 1.026 1.002 - 1.030 Color UA [...] TANA SHELTON Ordered By: Freddy BURCIAGA MR#: [id number] LOC: OR /Sex: 1995 (18 years), Female PROCEDURE: Tissue Culture SOURCE: Back COLLECTED: 05/20/2014 20:20 FREE TEXT SOURCE: Lumbar Wound Culture STARTED: 05/20/2014 22:13 STAINS / PREPARATIONS Gram Stain Report Verified:05/20/2014 22:28 Few White Blood Cells seen No microorganisms seen. TISSUE CULTURE Result Value Range Tissue Culture Value: Patient Name: TANA SHELTON Ordered By: Freddy BURCIAGA MR#: [id number] LOC: OR /Sex: 1995 (18 years), Female [...] PM EST Office [place] [address] Hollie Ambriz MD [facility] [place] [address] Pending Results Name Type Priority Associated Diagnoses [...] 6:50 AM EST DIFFERENTIAL, AUTOMATED Routine 05/30/19 6:50 AM EST CBC (WITH DIFF) Routine [...] REQUIRING LAMINECTOMY Routine 05/20/2014 10:22 PM EST CAR DRIVER CULTURE Routine 5 10:01 PM EST ANAEROBIC [...] Metabolic Panel (non-fasting) (06/02/2014 5:55 AM EST) [facility] Signature Glucose 75 60 - 199 mg/dL CERNER [...] the following links into your internet browser. [email or web address] Blood specimen (specimen) 06/02/2014 5:55 AM EST 06/02/2014 6:09 AM EST Narrative Resulting Agency Comment Spec In Lab S Alek Burciaga MD CHEMISTRY ORDERABLES Performing Organization Address [facility]/ZIP Co de Phone Number [facility] * (ABNORMAL) Sedimentation rate (06/01/2014 12:40 PM EST) Sedimentation Rate Automated 46(H) 0 - 20 mm/hr [facility] Blood specimen (specimen) Venous Draw / Unknown 06/01/2014 12:40 PM EST 06/01/2014 12:48 PM EST Narrative Resulting Agency Comment Spec In Lab S Alek Burciaga MD HEMATOLOGY ORDERABLE S Performing Organization Address [facility] de Phone Number [facility] * High Sensitivity CRP (06/01/2014 12:40 PM EST) C-Reactive Protein High Sensitivity 15.4 mg/L [facility] Comment: Interpretations: 1) For accurate cardiac [...] and Cardiovascular Disease. ??Circulation 2003; 107:499-511 2. Ridlisandro PM. ??Clinical applications of C-reactive protein for [...] MD HEMATOLOGY ORDERABLE S Performing Organization Address City/[facility]/ZIP Co de Phone Number CERNER MILLENNIUM * (ABNORMAL) Hemogram (06/01/2014 12:40 [...] S Alek Burciaga MD HEMATOLOGY ORDERABLE S [facility] * (ABNORMAL) Basic Metabolic Panel (non-fasting) (06/01/2014 12:40 PM EST) [facility] Glucose 95 60 - 199 mg/dL CERNER [...] the following links into your internet browser. [email or web address] Blood specimen (specimen) 06/01/2014 12:40 PM EST [...] Agency Comment Spec In Lab S Alek Bruciaga MD HEMATOLOGY ORDERABLE S CERNER MILLENNIUM * [...] S Alek Burciaga MD HEMATOLOGY ORDERABLE S [facility] MILLEN[facility]UM * (ABNORMAL) Basic Metabolic Panel [...] the following links into your internet browser. [email or web address] Blood specimen (specimen) 05/30/2014 6:50 AM EST [...] ORDERABLE S CERALIN TOMASENNIUM * (ABNORMAL) Hemogram (05/29/2014 7:13 [...] Metabolic Panel (non-fasting) (05/29/2014 7:13 AM EST) [facility] Glucose 83 60 - 199 mg/dL CERNER [...] the following links into your internet browser. [email or web address] Blood specimen (specimen) 05/29/2014 7:13 AM EST [...] MD HEMATOLOGY ORDERABLE S Performing Organization Address City/[facility]/ZIP Co de Phone Number CERALIN TOMASENNIUM * (ABNORMAL) Hemogram (05/28/2014 9:00 [...] 9:00 AM EST) Vancomycin, Trough 16.5 mg/L Edie LUNA MILLENNIUM Comment: Therapeutic range for complicated infections [...] Lab S Alek Burciaga MD [facility]MISTRY ORDERABLES [facility] * (ABNORMAL) Basic Metabolic Panel (non-fasting) [...] the following links into your internet browser. [email or web address] Blood specimen (specimen) 05/28/2014 9:00 AM EST [...] HEMATOLOGY ORDERABLE S CERALIN MILLENNIUM * (ABNORMAL) Basic Metabolic Panel (non-fasting) (05/27/2014 5:30 AM EST) Glucose 81 60 - 199 mg/dL [...] the following links into your internet browser. [email or web address] Blood specimen (specimen) 05/27/2014 5:30 AM EST 05/27/2014 5:39 AM EST Narrative Resulting Agency Comment Spec In Lab S Alek Burciaga MD CHEMISTRY ORDERABLES [facility]DA KEMPIUM * Anaerobic Culture (05/26/2014 5:30 PM EST) Anaerobic Culture ? Patient Name: TANA SHELTON ? Ordered By: Freddy BURCIAGA ? MR#: [id number] ?LOC: ??[place] ? /Sex: ??1995 (18 years), [...] ? Ordered By: Freddy BURCIAGA ? MR#: [id number] ?LOC: ??[place] ? /Sex: ??1995 (18 years), [...] S ? Patient: TANA SHELTON ? MR#: [id number] ? S=Susceptible ??I=Intermediate ??R=Resistant ??NA=Not Applicable ? [...] ? Ordered By: Freddy BURCIAGA ? MR#: [id number] ?LOC: ??[place] ? /Sex: ??1995 (18 years), ? Female ? PROCEDURE: Anaerobic Culture ?SOURCE: Other ? COLLECTED: 05/26/2014 17:30 ?FREE TEXT SOURCE: Anterior Flank ? STARTED: 05/26/2014 17:41 ? FINAL REPORT ? Final Report ? Verified:2014 12:54 ? No anaerobic organisms isolated ? PRELIMINARY REPORT ? Preliminary Report ? Verified:2014 12:08 ? No anaerobic organisms isolated to date ? CERNER MILLENNIUM Specimen of unknown material (specimen) 05/26/2014 5:30 PM EST 05/26/2014 5:41 PM EST Comment:ANTERIOR FLANK Narrative Resulting Agency Comment Spec In Lab Freddy Burciaga MD MICROBIOLOGY - GENER AL ORDERABLES [facility] * Tissue culture (05/26/2014 5:30 PM EST) Tissue Culture ? Patient Name: TANA SHELTON ? Ordered By: Freddy BURCIAGA ? MR#: [id number] ?LOC: ??[place] ? /Sex: ??1995 (18 years), [...] No growth on original plates. ? Patient: SHELTONTANA Freddy ? MR#: [id number] ? SUSCEPTIBILITY RESULTS ? Coagulase negative Staphylococcus [...] (1) ? Gentamicin is not appropriate for Gallia-therapy. ? (2) ? Penicillin resistant, Nafcillin susceptible Staphylococci are resistant to ? B-lactamase labile ? Penicillins including Ampicillin and Piperacillin, but susceptible to B- ? lactamase shelbie Penicillins ? (Nafcillin), B-lactamase inhibitor combinations, first and second ? generation Cephalosporins including ? Cefazolin, and to Cefepime and Meropenem. ? CRISTAALIN TOMASHCRISTINARAPHAEL Specimen of unknown material (specimen) 05/26/2014 5:30 PM EST 05/26/2014 5:41 PM EST Comment:ANTERIOR FLANK Narrative Resulting Agency Comment Spec In Lab S Alek Burciaga MD MICROBIOLOGY - GENER AL ORDERABLES [facility]ER MILLENNIUM * Anaerobic Culture (05/26/2014 5:30 PM EST) Anaerobic Culture ? Patient Name: TANA SHELTON ? Ordered By: Freddy BURCIAGA ? MR#: [id number] ?LOC: ??[place] ? /Sex: ??1995 (18 years), [...] ? Ordered By: Freddy BURCIAGA ? MR#: [id number] ?LOC: ??[place] ? /Sex: ??1995 (18 years), [...] BANK LAB ORDER MYRANDA Performing Organization Address [facility] Co de Phone Number LINDA BASHIR * ABO/Rh Typing (05/26/2014 12:40 PM EST) ABORH Type O Pos LINDA BASHIR Blood specimen (specimen) 05/26/2014 12:40 PM EST 05/26/2014 12:59 PM EST Narrative Resulting Agency Comment Spec In Lab S Alek Burciaga MD BLOOD BANK LAB ORDER MYRANDA Performing Organization Address [facility] Co de Phone [...] prior fragment retrieval. S Alek Burciaga MD IM CT ORDERABLES * CT lumbar spine reconstruction [...] Panel (non-fasting) (05/26/2014 4:15 AM EST) Glucose 88 60 - 199 mg/dL CERNER [...] the following links into your internet browser. [email or web address] Blood specimen (specimen) 05/26/2014 4:15 AM EST 05/26/2014 4:35 AM EST Narrative Resulting Agency Comment Spec In Lab S Alek Burciaga MD CHEMISTRY ORDERABLES LINDA BASHIR * Place PICC Line: Contact Vascular Access Page [phone] (05/25/2014 4:01 PM EST) Narrative [place] [...] to the planned procedure. Hand Hygiene: The library science instructor did perform hand hygiene prior to line insertion. Catheter type: PICC Lot number: [id number] Procedure Technique: Skin was prepped with chlorhexidine. [...] focal. COMPARISON: Scoliosis radiographs from 12/16/2011 FINDINGS: Grocery Bagger views demonstrate severe rightward scoliotic deformity centered [...] No gross collections in the cervical spine. Grocery Bagger coronal image 8 of series 8 demonstrates [...] inf,focal. COMPARISON: Scoliosis radiographs from 12/16/2011 FINDINGS: Grocery Bagger views demonstrate severe rightward scoliotic deformity centered [...] abnormalities. No grosscollections in the cervical spine. Grocery Bagger coronal image 8 of series 8 demonstrates [...] Narrative 05/25/2014 4:10 PM EST See accession #[id number] for dictation of this study. This report was reviewed by Andrade Rebolledo MD at 05/25/2014 4:05 PM Film and interpretation reviewed by the attending Procedure Note Andrade Roth MD - 05/25/2014 See accession #[id number] for dictation of this study. This report was reviewed by Andrade Rebolledo MD at 05/25/2014 4:05 PM Film and interpretation reviewed by the attending Alek Dumont [place] [facility] MRI ORDERABLES * Differential, Automated (05/25/2014 [...] MD HEMATOLOGY ORDERABLE S Performing Organization Address [facility] de Phone Number CERALIN TOMASENNIUM * [...] MD HEMATOLOGY ORDERABLE S Performing Organization Address [facility] Co de Phone Number LINDA KEMPIUM * (ABNORMAL) Basic Metabolic Panel (non-fasting) (05/25/2014 5:00 AM EST) Glucose 87 60 - 199 mg/dL CERNER [...] the following links into your internet browser. [email or web address] Blood specimen (specimen) 05/25/2014 5:00 AM EST 05/25/2014 5:19 AM EST Narrative Resulting Agency Comment Spec In Lab S Aelk Burciaga MD CHEMISTRY ORDERABLES [facility]ILLEN[facility] * [...] Panel (non-fasting) (05/24/2014 12:42 PM EST) Glucose 78 60 - 199 mg/dL CERNER [...] the following links into your internet browser. [email or web address] Blood specimen (specimen) 05/24/2014 12:42 PM EST 05/24/2014 12:42 PM EST Narrative Resulting Agency Comment Spec In Lab S Alek Burciaga MD CHEMISTRY ORDERABLES Performing Organization Address [facility] de Phone Number CERALIN MILLENNIUM * Vancomycin, trough (05/24/2014 12:29 PM EST) Vancomycin, Trough 12.4 mg/L C ERNER MILLENNIUM Comment: Therapeutic range [...] Burciaga MD CHEMISTRY ORDERABLES Performing Organization Address [facility] de Phone Number CERALIN MILLENNIUM * (ABNORMAL) [...] MD CHEMISTRY ORDERABLES CERNER MILLENNIUM * (ABNORMAL) Electrolytes panel (05/22/2014 [...] Smith MD CHEMISTRY ORDERABLES [facility] MILLENNIUM * Magnesium (05/22/2014 12:45 PM EST) Magnesium 0.69 0.69 - 1.07 mmol/L CERNER MILLENNIUM Blood specimen (specimen) Venous Draw / Unknown 05/22/2014 12:45 PM EST 05/22/2014 1:03 PM EST Narrative Resulting Agency Comment Spec In Lab Lucho Smith MD CHEMISTRY ORDERABLES Performing Organization Address [facility] Co de Phone Number [facility] * Lipase (05/22/2014 12:45 PM EST) Pathologist [facility] Lipase 44 0 - 60 unit/L [facility] Blood specimen (specimen) 05/22/2014 12:45 PM EST 05/22/2014 1:03 PM EST Narrative Resulting Agency Comment Spec In Lab Lucho Smith MD CHEMISTRY ORDERABLES Performing Organization Address [facility] Phone Number [facility] * Amylase (05/22/2014 12:45 PM EST) Pathologist [facility] Amylase 89 28 - 100 unit/L [facility] MILLENNIUM Blood specimen (specimen) 05/22/2014 12:45 PM EST 05/22/2014 1:03 PM EST Narrative Resulting Agency Comment Spec In Lab Lucho Smith MD CHEMISTRY ORDERABLES Performing Organization Address [facility] Phone Number [facility] * (ABNORMAL) Comprehensive metabolic panel (non-fasting) (05/22/2014 12:45 PM EST) [facility] Glucose 81 60 - 199 mg/dL [facility] MILLENNIUM Comment:Diabetes: >=200 mg/d L plus [...] mass. Sodium 142 135 - 145 mmol/L [facility] Potassium 3.6 3.5 - 5.0 mmol/L [...] 8.5 - 10.5 mg/dL CERNER MILLENNIUM Comment:result rechecked-[facility] Protein, Total 7.1 6.4 - 8.3 gm/dL [...] the following links into your internet browser. [email or web address] Blood specimen (specimen) 05/22/2014 12:45 PM EST 05/22/2014 1:03 PM EST Narrative Resulting Agency Comment Spec In Lab Lucho Smith MD CHEMISTRY ORDERABLES [facility] * Differential, Automated (05/22/2014 6:10 AM EST) [...] Hemoglobin Concentration 33.1 32.0 - 36.5 gm/dL CERALIN MILLENNIUM Platelet 342 145 - 370 x10(3)/mcL CERNER MILLENNIUM RDW Standard Deviation 45.2 35.0 - 46.0 fL CERNER MILLENNIUM RDW coefficient of variation 14.2 10.9 - 14.4 % CERNER MILLENNIUM Mean Platelet Volume 10.7 9.0 - 12.0 fL [facility] M[facility] Blood specimen (specimen) 05/22/2014 6:10 AM EST 05/22/2014 6:22 AM EST Narrative Resulting Agency Comment Spec In Lab S Alek Burciaga MD HEMATOLOGY ORDERABLE S Performing Organization Address [facility] Co de Phone Number [facility] * Vancomycin, trough (05/22/2014 6:10 AM EST) Vancomycin, Trough 6.1 mg/L [facility] THOMENNIUM Comment: Therapeutic range for complicated infections such [...] Burciaga MD CHEMISTRY ORDERABLES Performing Organization Address [facility]/ZIP Co de Phone Number [facility] * (ABNORMAL) Basic Metabolic Panel (non-fasting) (05/22/2014 6:10 AM EST) Glucose 86 60 - 199 mg/dL [facility] Comment:Diabetes: >=200 mg/d L plus symptoms Blood Urea Nitrogen 3(L) 8 - 18 mg/dL [facility] Creatinine 0.27(L) 0.70 - 1.20 mg/dL [...] the following links into your internet browser. [email or web address] Blood specimen (specimen) 05/22/2014 6:10 AM EST [...] Metabolic Panel (non-fasting) (05/21/2014 4:23 AM EST) [facility] Glucose 107 60 - 199 mg/dL CERNER [...] the following links into your internet browser. [email or web address] Blood specimen (specimen) 05/21/2014 4:23 AM EST 05/21/2014 4:38 AM EST Narrative Resulting Agency Comment Spec In Lab Freddy Burciaga MD CHEMISTRY ORDERABLES [facility] * Dental Appliance Repairer Culture (05/20/2014 10:01 PM EST) Dental Appliance Repairer Culture ? Patient Name: TANA SHELTON ? Ordered By: Freddy BURCIAGA ? MR#: [id number] ?LOC: ??[place] ? /Sex: ??1995 (18 years), ? Female ? PROCEDURE: Dental Appliance Repairer Culture ?SOURCE: Other ? COLLECTED: 05/20/2014 22:01 ? BODY SITE: Other ? STARTED: 05/20/2014 22:22 ?FREE TEXT SOURCE: retained baclafin pump tubing ? FINAL REPORT ? Final Report ? Verified:05/24/2014 10:28 ? Pseudomonas aeruginosa isolated ? Susceptibilities previously reported ? PRELIMINARY REPORT ? Preliminary Report ? Verified:05/23/2014 11:27 ? Pseudomonas aeruginosa isolated ? Susceptibilities previously reported ? [facility] Specimen of unknown material (specimen) TOPOGRAPHY UNKNOWN / Unknown 05/20/2014 10:01 PM EST 05/20/2014 10:21 PM EST Comment:RETAINED BACLAFIN PU MP TUBING Narrative Resulting Agency Comment Spec In Lab Freddy Burciaga MD MICROBIOLOGY - GENER AL ORDERABLES [facility] * Anaerobic Culture (05/20/2014 9:25 PM EST) Anaerobic Culture ? Patient Name: TANA SHELTON ? Ordered By: Freddy BURCIAGA ? MR#: [id number] ?LOC: ??[place] ? /Sex: ??1995 (18 years), ? Female ? PROCEDURE: Anaerobic Culture ?SOURCE: Back ? COLLECTED: 05/20/2014 21:25 ?FREE TEXT SOURCE: Lumbar wound Culture #2 ? STARTED: 05/20/2014 22:12 ? FINAL REPORT ? Final Report ? Verified:2014 15:01 ? No anaerobic organisms isolated ? PRELIMINARY REPORT ? Preliminary Report ? Verified:2014 15:03 ? No anaerobic organisms isolated to date ? LINDA MILLENNIUM Structure of back of trunk (body structure) 05/20/2014 9:25 PM EST 05/20/2014 10:12 PM EST Comment:LUMBAR WOUND CULTURE #2 Narrative Resulting Agency Comment Spec In Lab Freddy Burciaga MD MICROBIOLOGY - GENER AL ORDERABLES LINDA BASHIR * Tissue culture (05/20/2014 9:25 PM EST) Tissue Culture ? Patient Name: TANA SHELTON ? Ordered By: Freddy BURCIAGA ? MR#: [id number] ?LOC: ??[place] ? /Sex: ??1995 (18 years), [...] ? Patient: CRISTO SHELTONLIE S ? MR#: [id number] ? S=Susceptible ??I=Intermediate ??R=Resistant ??NA=Not Applicable ? [...] ? Ordered By: Freddy BURCIAGA ? MR#: [id number] ?LOC: ??[place] ? /Sex: ??1995 (18 years), [...] ? Ordered By: Freddy BURCIAGA ? MR#: [id number] ?LOC: ??[place] ? /Sex: ??1995 (18 years), [...] ? Ordered By: BELKIS LOUIE ? MR#: [id number] ?LOC: ??[place] ? /Sex: ??1995 (18 years), ? Female ? PROCEDURE: Urine Culture ?SOURCE: [facility] ? COLLECTED: 05/20/2014 18:46 ? STARTED: 05/20/2014 [...] Urine Dipstick Hazy(A) Clear CERNER MILLENNIUM Specific [place] Urine Automated 1.026 1.002 - 1.030 CERNER [...] Louie MD URINE ORDERABLES Performing Organization Address [facility] de Phone Number LINDA BASHIR * L-Lactate2 Whole Blood (05/20/2014 6:17 PM EST) Lactate WB 1.6 0.5 - 2.2 mmol/L CERALIN TOMASENNIUM Blood specimen (specimen) 05/20/2014 6:17 PM EST 05/20/2014 6:17 PM EST Belkis Louie MD CHEMISTRY ORDERABLES Performing Organization Address [facility] de Phone Number LINDA BASHIR * Blood culture (05/20/2014 6:00 PM EST) Blood Culture ? Patient Name: TANA SHELTON ? Ordered By: BELKIS LOUIE ? MR#: [id number] ?LOC: ??[place] ? /Sex: ??1995 (18 years), [...] MICROBIOLOGY - BLOOD ORDERABLES Performing Organization Address [facility] Co de Phone Number LINDA KEMPIUM * Green Tube HOLD (05/20/2014 5:15 PM EST) Green Hold Sample in lab. LINDA TOMASENNIUM Blood specimen (specimen) Venous Draw / Unknown 05/20/2014 5:15 PM EST 05/20/2014 5:32 PM EST Belkis Louie MD CHEMISTRY ORDERABLES Performing Organization Address [facility] de Phone Number LINDA TOMASENNIUM * [...] Belkis Louie MD HEMATOLOGY ORDERABLE S LINDA BASHIR * Blood culture (05/20/2014 5:15 PM EST) Blood Culture ? Patient Name: TANA SHELTON ? Ordered By: BELKIS LOUIE ? MR#: [id number] ?LOC: ??[place] ? /Sex: ??1995 (18 years), ? Female ? PROCEDURE: Blood Culture ?SOURCE: Blood ? COLLECTED: 05/20/2014 17:15 ? BODY SITE: Left Hand ? STARTED: 05/20/2014 19:17 ?FREE TEXT SOURCE: Hold until MD holloway ? FINAL REPORT ? Final Report ? Verified:2014 23:01 ? No growth at 5 days. ? PRELIMINARY REPORT ? Preliminary Report ? Verified:2014 23:01 ? No growth at 4 days. ? LINDA BASHIR Blood specimen (specimen) STRUCTURE OF LEFT HAND / Unknown 05/20/2014 5:15 PM EST 05/20/2014 7:17 PM EST Comment:HOLD UNTIL MD KURTIS Narrative Resulting Agency Comment Spec In Lab Belkis Louie MD MICROBIOLOGY - BLOOD ORDERABLES Performing Organization Address [facility] Co de Phone Number [facility] * Glucose, random (05/20/2014 5:15 PM EST) Glucose 81 60 - 199 mg/dL [facility] Comment:Diabetes: >=200 mg/d L plus symptoms Blood specimen (specimen) 05/20/2014 5:15 PM EST 05/20/2014 5:31 PM EST Narrative Resulting Agency Comment Spec In Lab Belkis Louie MD CHEMISTRY ORDERABLES Performing Organization Address [facility] de Phone Number [facility] * (ABNORMAL) Creatinine (05/20/2014 5:15 PM EST) Creatinine 0.37(L) 0.70 - 1.20 mg/dL [facility] Comment: Please note that the pediatric reference intervals supplied above were not validated at [facility]. Results from pediatric patients should be interpreted in conjunction to the patient's age, height and muscle mass. Est Glomerular Filtration Rate >60 >=60 [facility] Comment: This estimated GFR (eGFR) value [...] the following links into your internet browser. [email or web address] Blood specimen (specimen) 05/20/2014 5:15 PM EST 05/20/2014 5:31 PM EST Narrative Resulting Agency Comment Spec In Lab Belkis Luoie MD CHEMISTRY ORDERABLES [facility]ER[facility] TOMASENNI[facility] * BUN (05/20/2014 5:15 PM EST) Blood Urea Nitrogen 9 8 - 18 mg/dL CERNER MILLENNIUM Blood specimen (specimen) 05/20/2014 5:15 PM EST 05/20/2014 5:31 PM EST Narrative Resulting Agency Comment Spec In Lab Belkis Louie MD CHEMISTRY ORDERABLES Performing Organization Address [facility] Co de Phone Number CERALIN TOMASENNIUM * (ABNORMAL) Electrolytes panel (05/20/2014 5:15 [...] Louie MD CHEMISTRY ORDERABLES Performing Organization Address [facility]/State/ZIP Co de Phone Number LINDA KEMPIUM documented in this encounter Visit Diagnoses Diagnosis [...] Boss, Indication for (Active or Suspected): SENIOR ANALYTICAL CHEMIST/Meningitis Given 06/02/2014 5:57 AM EST 2 g 100 mL/hr Given 06/01/2014 10:41 PM EST 2 g 100 mL/hr Given 06/01/2014 2:10 PM EST 2 g 100 mL/hr cefTRIAXone (ROCEPHIN) 1g in dextrose 5% 50mL 1 g, Intravenous, ONCE, 1 dose, On 05/20/14 at 2315, Administer over 30 Minutes, Indication for (Active or Suspected): SENIOR ANALYTICAL CHEMIST/Meningitis Given 05/21/2014 1:32 AM EST 1 g 100 mL/hr cefTRIAXone (ROCEPHIN) 2g in dextrose 5% 50mL 2,000 mg (2 g), Intravenous, EVERY 12 HOURS, First dose on 05/20/14 at 1000, Until Discontinued, Administer over 30 Minutes, Indication for (Active or Suspected): for SENIOR ANALYTICAL CHEMIST/Meningitis Given 05/22/2014 10:59 AM EST 2,000 mg [...] Intravenous, EVERY 2 HOURS PRN, Starting on 05/26/14 at 2000, Until 06/02/14 at 1832, Pain, Routine Given 05/27/2014 10:16 [...] 30 Minutes, Indication for (Active or Suspected): SENIOR ANALYTICAL CHEMIST/Meningitis Given 05/22/2014 5:40 AM EST 500 mg [...] Intravenous, 2 TIMES DAILY, First dose on 05/21/14 at 0145, Until Discontinued, Recovery (Recovery-Hospital Unit), [...] infusion 50 mL/hr, Intravenous, CONTINUOUS, Starting on 05/20/14 at 2245, Until 05/22/14 at 0759, Recovery (Recovery-Hospital Unit) New Bag [...] HOURS, First dose (after last modification) on Tu05/23/14 at 2000, Until Discontinued, Maximum infusion rate [...] Boss, Indication for (Active or Suspected): SENIOR ANALYTICAL CHEMIST/Meningitis 0616 (Given - Provider: Linsey Mcintyre RN)[id number] [...] RN) 1003 (Given - Provider: Dolores Patino RN)2099 (Not [...] Routine documented in this encounter Care Teams Harness Cutter Relationship Specialty Start Date End Date Naina Lindsey MD [address] [place] [address] PCP - General 03/19/10 08/25/16 documented as of this encounter
--- OUTSIDE RECORDS SUMMARY | 2023-12-04 12:42 | XMS_ITS | Encounter Summary ---
Author Organization [facility] [place] [address] Care Team Providers Care Residency Program Coordinator Name Role Phone Naina Lindsey MD Primary Care Provider [phone] Reason for Visit * Reason Comments Post-op Problem Encounter Details Date Type Department Care Team (Late st Contact Info) Description 05/20/2014 7:24 PM EST - 05/20/2014 9:57 PM EST [place] [address] Freddy Burciaga MD [facility] [place] [address] @I & D, OPEN, DEEP ABSCESS, LUMBAR, [...] Routine, Hospital Performed Vendor / contact information: [facility] Patient location post discharge: home Service requested: IV abx Start date: 05/26/2014 Responsible MD post discharge contact info: WILL Smith (Edit) Referral to Home Health - at DISCHARGE Routine, Clinic Performed Agency name and contact information: [facility] Patient location post discharge: home What services are requested: Registered Nurse, Home Health Aide, Physical Therapy, Occupational Therapy Start date: 05/26/2014 Responsible MD post discharge contact info: PCP PATIENT'S LOCATION: Tana Shelton [address] [place] [phone] (home) In discussion with the attending physician, it is certified that this patient is under their care and that they, or a Nurse Practitioner,Clinical Nurse specialist or Physician Occupational Therapy Assist who is working directly with them, had [...] Continue with therapies OT: Continue with therapies BLOW DOWN HELPER: Continue support HOME HEALTH CARE AGENCY: [facility]. PHONE: [phone] FAX: [phone] Start of care: 05/26/14 Please note that any additional orders needs or changes will need to be obtained from this patient's PCP: MD Coby BRAGG DR / [facility] [id number] All VNA agencies which cover the area of patient's residence have been reviewed, either verbally or in writing, and patient/family have chosen the home health care agency noted Emergency contact: After hours and weekends, call the [facility] sueding machine operator at and ask them to page the neurosurgery resident container packer operator. documented in this encounter Medications at [...] (AVS) and given to the patient or direct customer service representative. 6) If VNA was [...] - Inpatient Progress Note ID: Tana Hayes Cat, 18 y.o. female s/p removal of retained [...] 0.9% 50 mL Mini-Bag Plus 2 g [id number] ??? baclofen 10 mg Oral Nightly ??? levonorgestrel-ethinyl estradiol 1 tablet Oral Daily ??? polyethylene glycol 17 g Oral Daily ??? sodium chloride 0.9 % 5 mL Intravenous BID ??? diaZEPam 5 mg Oral BID Continuous Infusions: ??? sodium chloride 0.9% with potassium chloride 20 mEq 50 mL/hr (06/01/14 5485) PRN Meds:acetaminophen OR acetaminophen, flu vaccine (36 [...] elevated HR this am S: Kenneth Rocco. [facility], [id number] singing ABCs and counting along with stretches [...] pt to d/chome with support and continued PT/OT/DIGITAL STRATEGY DIRECTOR/VNA services. Staff communication/Mobility Recommendations: Pt. Would [...] timed interventions: 30 minutes for TherEx-F Pager: [phone] Mary Joe, OT Occupational Therapy Rehabilitation Department * Isra Perez RN - 06/01/2014 2:43 PM EST Patient Name: Tana Shelton Patient Age: 18 y.o. Birthdate: 1995 Admit date: 05/20/2014 Attending Physician: Jamaal Samuel MD OFFICE OF CARE MANAGEMENT Farhana Perez RN Pager: [phone] CLINICAL ACTIVITY DIRECTOR PROGRESS NOTE e-DH reviewed. Report received from DEMI Sanchez. Patient continues to require acute inpatient care for the treatment of infection. Patient remains on triple abx while awaiting final cultures. [facility] and [facility] have been referred to for discharge. Met with patient's mother at bedside. Mom had multiple questions the other day regarding equipment for home. Mattress for hospital bed was ordered and delivered to home from [facility]. Tomasa Sling was ordered and is to be delivered by [facility] when it ships to [facility] warehouse. TLSO brace to be fitted by [facility]. Mom also inquired about a new motorized wheelchair. Called [facility] in [place] to see if patient would qualify, left message with Oliver- the rehabilitation counselor for [facility]. Patient will need a assessment [...] 0.9% 50 mL Mini-Bag Plus 2 g EtndlzydkkjD2U ??? baclofen 10 mg Oral Nightly ??? [...] family in a single story home in [place], [place]. Pt's mother reports that there is no stair requirement, and that she has all necessary equipment. Stairs: 0 without a rail to enter Baseline Mobility: Completely dependent for all care, home nursing VNA services 3x/week, school-based PT/OT/DIGITAL STRATEGY DIRECTOR, pt due to receive a communication [...] than in previous treatment session, counting withthis functional tester typewriters during stretching Objective: Patient seen for 45 [...] internal rotators, adductors ?? Pt helped this functional tester typewriters with opposite UE when performing stretching as [...] session, playing with toys, playfully tricking this functional tester typewriters when counting during passive stretching, and helping [...] exercise Natividad Esqueda PT, DPT 05/31/2014 Pager: [phone] Physical Therapy Inpatient Rehabilitation Department * Nathalie [...] OF CARE MANAGEMENT Farhana Perez RN Pager: [phone] CLINICAL ACTIVITY DIRECTOR PROGRESS NOTE e-DH reviewed. Report received from DEMI Sanchez. Patient continues to require acute inpatient care for the treatment of infection. Patient is on triple abx. Patient needs a new mattress for her hospital bed at home. Patient's mother would like order placed with [employer]. Order pended and booking sent via [employer] Plan: CRC will continue to follow for [...] pt to d/chome with support and continued PT/OT/DIGITAL STRATEGY DIRECTOR/VNA services. Staff communication/Mobility Recommendations: Pt. Would [...] timed interventions: 45 minutes for TherEx Pager: [phone] Mary Joe OT Occupational Therapy Rehabilitation Department [...] 0.9% 50 mL Mini-Bag Plus 2 g NphhhshvfaiC8P ??? baclofen 10 mg Oral Nightly ??? [...] OF CARE MANAGEMENT Farhana Perez RN Pager: [phone] CLINICAL ACTIVITY DIRECTOR PROGRESS NOTE e-DH reviewed. Report received from [...] as pt becomes available. Please contact this functional tester typewriters with any further questions or concerns. Thank you. Pager: [phone] Mary Joe OTR/L Occupational Therapy Inpatient Rehabilitation [...] family in a single story home in [place], [place]. Pt's mother reports that there is no stair requirement, and that she has all necessary equipment. Stairs: 0 without a rail to enter Baseline Mobility: Completely dependent for all care, home nursing VNA services 3x/week, school-based PT/OT/DIGITAL STRATEGY DIRECTOR, pt due to receive a communication [...] pt very smiley today, counting with this functional tester typewriters during stretching, showing off her favorite toys [...] exercise Natividad Esqueda PT, DPT 05/29/2014 Pager: [phone] Physical Therapy Inpatient Rehabilitation Department * Wai [...] not hesitate to page us on pager [phone] with further questions or concerns. Patient discussed with Dr. Wai Crabtree. Dimple Messina MD Fellow, Infectious Disease 05/29/2014 ID Staff: Discussed with Dr. Messnia. Agree with current regimen. This will be a very difficult regimen at [facility] some further discussion is needed. We are awaiting sensis on CoNS which may help us to narrow IVregimen. 15 minutes MArleth Crabtree MD * Darius Maguire T - 05/29/2014 6:48 AM EST Neurosurgery - Inpatient Progress Note ID: Tana Hayes Cat, 18 y.o. female s/p removal of retained hardware, washout of infection 05/20 POD 7 POD 3 Interval Hx: -ALEKSANDRA -Neurologically stable - Afebrile Objective: Medications: Scheduled Meds: ??? ciprofloxacin (CIPRO) oral liquid 250 mg Oral BID ??? vancomycin 1 g Intravenous Q8H ??? cefTAZidime (FORTAZ) 2g vial attach to sodium chloride 0.9% 50 mL Mini-Bag Plus 2 g UeysawneygiV6B ??? baclofen 10 mg Oral Nightly ??? [...] 0.9% 50 mL Mini-Bag Plus 2 g QklwbiqrlrqT4I ??? baclofen 10 mg Oral Nightly ??? [...] CRC received call from EUNICE Hair, from [place], [place] or Asking for status as they will follow her after discharge for IV antibiotic treatment. She will need an OPAT order faxed to above agency when she is ready for discharge as well as administration teaching for home. When ready for discharge, [facility] PHONE: [phone] FAX: [phone] will also need to be updated. Referral had been made by previous CRC. Covering pager #[phone] for pager #[phone]. * Darius Maguire T - 05/27/2014 8:23 [...] 0.9% 50 mL Mini-Bag Plus 2 g UozaghrsjxkT4S ??? baclofen 10 mg Oral Nightly ??? [...] Dressing clean and dry Wound without fluctuance [address] Assessment/Plan:: 18 y.o. female s/p removal [...] family in a single story home in [place], [place]. Pt's mother reports that there is no stair requirement, and that she has all necessary equipment. Stairs: 0 without a rail to enter Baseline Mobility: Completely dependent for all care, home nursing VNA services 3x/week, school-based PT/OT/DIGITAL STRATEGY DIRECTOR, pt due to receive a communication [...] exercise Natividad Esqueda PT, DPT 05/26/2014 Pager: [phone] Physical Therapy Inpatient Rehabilitation Department * Freddy Burciaga MD - 05/26/2014 6:27 AM EST Neurosurgery - Inpatient Progress Note ID: Tana Shelton, 18 y.o. female s/p removal of retained hardware, washout of infection 05/20 POD 6 Interval Hx: -ALEKSANDRA -Neurologically stable Objective: Medications: Scheduled Meds: ??? cefTAZidime (FORTAZ) 2g vial attach to sodium chloride 0.9% 50 mL Mini-Bag Plus 2 g YsffdscpxfcQ3E ??? baclofen 10 mg Oral Nightly ??? [...] (05/26) or when appropriate. Please page this functional tester typewriters if you have any questions, thank you. Natividad Esqueda PT Pager #[phone] Physical Therapy Inpatient Rehabilitation * Mary Joe, [...] pt to d/chome with support and continued PT/OT/DIGITAL STRATEGY DIRECTOR/VNA services. Spoke to CRC this about [...] timed interventions: 27 minutes for TherEx Pager: [phone] Mary Joe OT Occupational Therapy Rehabilitation Department [...] 0.9% 50 mL Mini-Bag Plus 2 g KwqbmswtsvaL3Z ??? baclofen 10 mg Oral Nightly ??? [...] of Care Management Farhana Perez RN Pager: [phone] Clinical Supervisor Securities [employer] Home IV Antibiotic Therapy Referral Note. Report received from NeuroSurgery Team that patient will require continued home IV antibiotic therapy after discharge from the hospital. Met with patient/family to discuss vendor and visiting nurse choices for home IV antibiotic therapy. Reviewed Home Infusion Vendors and Home Health Agencies that serve patient???s address and accept patient???s insurance. Home Health Agency: Patient requested referral to [facility]. PHONE: [phone] FAX: [phone]. Referrals sent via edischarge. Home Infusion Vendor: Patient requested referral to [place], [place] Tel: or Fax: . Referrals sent [...] 0.9% 50 mL Mini-Bag Plus 2 g ZulyrlgfvioU4L ??? baclofen 10 mg Oral Nightly ??? [...] 0.9% 50 mL Mini-Bag Plus 2 g MjktdevtoivV9G ??? baclofen 10 mg Oral Nightly ??? [...] PM EST Office of Care Management Clinical Supervisor [employer] Patient Name: Tana Shelotn : 1995, 18 yrs Admission Date: 05/20/2014 [...] None on File (x) HEALTH /PRESCRIPTION COVERAGE: [facility] CURRENT HOME/COMMUNITY SERVICES/EQUIPMENT: DME: [facility] bed, wheelchair, tomasa lift, shower chair. Home Health Agency: [facility] PRIMARY CARE PHYSICIAN: NAINA LINDSEY MD [phone] POTENTIAL DISCHARGE NEEDS: Resume vna visits. Mother stated that she has [facility] - RN and Aide currently. Waiting to confirm this and pt needs. Might need home IV antibx. TRANSPORTATION @ D/C: family PLAN: CRC will continue to monitor progress, follow for continuity of care and assist with discharge planning while hospitalized Lesly Jesus RN Office of Care Management Clinical Supervisor [employer] Covering for Farhana Chrsi [phone] Pager [phone] * Yandy Dasilva, PharmD - 05/22/2014 9:46 AM EST Clinical Pharmacist Note-Vanc Tana S Cat [id number] 1995 Tana Barlowrd is a 18 y.o. [...] have. Alternately, during off-hours you may call [phone] to contact a pharmacist. Yandy Dasilva PHARMBenjamin Pager [phone] * Freddy Burciaga MD - 05/22/2014 6:59 AM EST Neurosurgery - Inpatient Progress Note ID: Tana Hayes Cat, 18 y.o. female s/p removal of retained [...] Clinically does not seem to be of METAL POLISHER AND BUFFER APPRENTICE origin. Continue triple antibiotics. ID consult. Cultures [...] given to Diana RN Peds. Transferred to [place] [phone] with transport services, RN + family members. Please call Anurag ICU-RN at [phone] with regards to any questions post transfer. [...] mcL Appearance UA Hazy (*) Clear Spec Purdy UA 1.026 1.002 - 1.030 Color UA [...] TANA SHELTON Ordered By: Freddy BURCIAGA MR#: [id number] LOC: OR /Sex: 1995 (18 years), Female PROCEDURE: Tissue Culture SOURCE: Back COLLECTED: 05/20/2014 20:20 FREE TEXT SOURCE: Lumbar Wound Culture STARTED: 05/20/2014 22:13 STAINS / PREPARATIONS Gram Stain Report Verified:05/20/2014 22:28 Few White Blood Cells seen No microorganisms seen. TISSUE CULTURE Result Value Ref Range Tissue Culture Value: Patient Name: TANA SHELTON Ordered By: EVITAFreddy IRENE MR#: [id number] LOC: OR /Sex: 1995 (18 years), Female [...] reassess pt 1145: Dr. Laguna and Dr. Proras at bedside to administer reversal and extubate [...] II initiated 0040: Report given to Jenn DOWEL INSERTING MACHINE OPERATOR info reviewed/questions answered, pt ready for transfer [...] to the planned procedure. Hand Hygiene: The school bus driver/custodian did perform hand hygiene prior to line insertion. Catheter type: PICC Lot number: [id number] Procedure Technique: Skin was prepped with chlorhexidine. [...] 1 cm Tip in SVC per DR DORSYE. The line was not placed over a [...] warm and was flushed. They called the container packer operator neurosurgeon, who advised that they come [...] BILATERAL performed by YAS OLIVER [facility] MAIN OR ??? Apply of hip casts, two legs 08/15/2010 CAST APPLICATION, HIP SPICA, BOTH LEGS performed by YAS OLIVER at [facility] MAIN OR ??? Removal deep implant 08/15/2010 REMOVAL IMPLANT, DEEP, BRUNO performed by YAS OLIVER at [facility] MAIN OR ??? Osteotomy femur shaft/supracondy 08/15/2010 ??OSTEOTOMY, FEMUR SHAFT OR SUPRACONDYLAR W/O FIXATION performed by YAS OLIVER at [facility] MAIN OR ??? Remove spinal canal catheter N/A 05/11/2014 REMOVAL OF INTRATHECAL OR EPIDURAL CATHETER performed by Jamaal Samuel MD at [facility] MAIN OR ??? Remove infusn device/pump N/A 05/11/2014 REMOVAL OF SPINE INFUSION PUMP performed by Jamaal Samuel MD at [facility] MAIN OR Medications: No current [...] mcL Appearance UA Hazy (*) Clear Spec Purdy UA 1.026 1.002 - 1.030 Color UA [...] intrathecal baclofen pump in 2007 at the [facility]. Mother feels that the pump has [...] Routine, Hospital Performed Vendor / contact information: [facility] Patient location post discharge: home Service requested: IV abx Start date: 05/26/2014 Responsible MD post discharge contact info: PCP New (Edit) Referral to Home Health - at DISCHARGE Routine, Clinic Performed Agency name and contact information: [facility] Patient location post discharge: home What services are requested: Registered Nurse, Home Health Aide, Physical Therapy, Occupational Therapy Start date: 06/06/2014 Responsible MD post discharge contact info: PCP PATIENT'S LOCATION: Tana Shelton [address] [place] [phone] (home) In discussion with the attending physician, it is certified that this patient is under their care and that they, or a Nurse Practitioner,Clinical Nurse specialist or Physician Occupational Therapy Assist who is working directly with them, had [...] Continue with therapies OT: Continue with therapies BLOW DOWN HELPER: Continue support HOME HEALTH CARE AGENCY: [facility] PHONE: [phone] FAX: [phone] Start of care: 05/26/14 Please note that any additional orders needs or changes will need to be obtained from this patient's PCP: MD Coby BRAGG DR / [place] [id number] All VNA agencies which cover the area of patient's residence have been reviewed, either verbally or in writing, and patient/family have chosen the home health care agency noted Emergency contact: After hours and weekends, call the [facility] sueding machine operator at and ask them to page the neurosurgery resident container packer operator. * Plan of Care - Margot [...] yo. Supervision: Continuous; Moraima. Fannie at home software security architect at bedside this morning ; Mom arrived [...] Health Knowledge, Opportunity for Enhanced (Adult, NICU, [place], Obstetrics, Pediatric) Goal: Identify Signs and Symptoms [...] (Interventions Implemented as Appropriate) 05/25/14 0527 05/26/14 5855 Plan of Care Review Plan of Care [...] -- -- Score -- -- -- OTHER Woodlal Fall Risk -- -- -- Goal: Infection [...] Health Knowledge, Opportunity for Enhanced (Adult, NICU, [place], Obstetrics, Pediatric) Goal: Identify Signs and Symptoms [...] AM EST Clinical Pharmacist Note-Vancomycin Tana Shelton [id number] 1995 Tana Shelton is a 18 y.o. [...] contact a pharmacist. Elmer Tobin, [place] Pager [phone] * Plan of Care - Leana Hicks [...] Outcome: Ongoing (Interventions Implemented as Appropriate) 05/27/14 1809 Infection, Risk/Actual (Adult, Obstetrics) Infection Prevention/Resolution/Control making progress toward outcome Problem: Fall/Trauma/Injury Risk (Pediatric) Goal: Identify Signs and Symptoms and Related Risk Factors Signs and symptoms and related risk factors are identified upon initiation of Human Response Clinical Practice Guideline (CPG) Outcome: Outcome (s) achieved Date Met: 05/27/14 05/22/14202905/25/14 691 Fall/Trauma/Injury Risk Personal Related Risk Factors (Fall/Trauma/Injury [...] Burciaga MD - 05/26/2014 4:52 PM EST [facility] Operative Note Patient Name: Tana Shelton : [id number] MR#: [id number] Case Date: 05/26/2014 Surgeon: Surgeon(s) and Role: [...] (Interventions Implemented as Appropriate) 05/22/14 0634 05/24/14 1944 Discharge Needs Assessment Concerns to be Addressed [...] Health Knowledge, Opportunity for Enhanced (Adult, NICU, [place], Obstetrics, Pediatric) Goal: Identify Signs and Symptoms and Related Risk Factors Signs and symptoms and related risk factors are identified upon initiation of Human Response Clinical Practice Guideline (CPG) Outcome: Ongoing (Interventions Implemented as Appropriate) * Plan of Care - Carisa Godwin RN - 05/25/2014 8:02 AM EST Problem: Health Knowledge, Opportunity for Enhanced (Adult, NICU, [place], Obstetrics, Pediatric) Goal: Knowledgeable about Health Subject/Topic Patient will demonstrate the desired outcomes. Outcome: Outcome (s) achieved Date Met: 05/25/14 05/25/14 0802 Health Knowledge, Opportunity for Enhanced (Adult, NICU, [place], Obstetrics, Pediatric) Knowledgeable about Health Subject/Topic achieves [...] bedside;lighting adjusted for task/safety;low bed;environmental modification 05/25/14 0558 Musculoskeletal Interventions Activity/Level of Assistance -- Self-Care [...] Outcome: Ongoing (Interventions Implemented as Appropriate) 05/24/14 7921 Plan of Care Review Plan of Care [...] FEMORAL HEAD, BILATERAL performed by YAS OLIVER Count includes the [facility] OR ??? Apply of hip casts, two legs 08/15/2010 CAST APPLICATION, HIP SPICA, BOTH LEGS performed by YAS OLIVER at [facility] OR ??? Removal deep implant 08/15/2010 REMOVAL IMPLANT, DEEP, BRUNO performed by YAS OLIVER at [facility] OR ??? Osteotomy femur shaft/supracondy 08/15/2010 ??OSTEOTOMY, FEMUR SHAFT OR SUPRACONDYLAR W/O FIXATION performed by YAS OLIVER at [facility] OR ??? Remove spinal canal catheter N/A 05/11/2014 REMOVAL OF INTRATHECAL OR EPIDURAL CATHETER performed by Jamaal Samuel MD at [facility] OR ??? Remove infusn device/pump N/A 05/11/2014 REMOVAL OF SPINE INFUSION PUMP performed by Jamaal Samuel MD at [facility] OR ? ? I&d, post spine, lumb/sacr/lumbosac N/A 05/20/2014 @I & D, OPEN, DEEP ABSCESS, LUMBAR, SACRAL, LUMBOSACRAL performed by Freddy Burciaga MD at [facility] OR ??? Repr, dural/csf leak, not req laminectomy N/A 05/20/2014 @REPAIR DURAL\CSF LEAK,NOT REQUIRING LAMINECTOMY performed by Freddy Burciaga MD at [facility] OR Social and Developmental History: Patient lives with her family in a single level home in [place], [place]. Pt's mother reports that their home [...] has an older sister who lives in [place] and 3 younger brothers. She likes to [...] RN and mom assist. Feeding: per mom: [place] assist for use of utensils; not observed [...] to d/c home with support and continued PT/OT/DIGITAL STRATEGY DIRECTOR/VNA services. Spoke with CRC about consultfor [...] you for this occupational therapy consult. Pager: [phone] Mary Joe OT 05/24/2014 Occupational Therapy Rehabilitation [...] FEMORAL HEAD, BILATERAL performed by YAS OLIVER Count includes the [facility] OR ??? Apply of hip casts, two legs 08/15/2010 CAST APPLICATION, HIP SPICA, BOTH LEGS performed by YAS OLIVER at [facility] OR ??? Removal deep implant 08/15/2010 REMOVAL IMPLANT, DEEP, BRUNO performed by YAS OLIVER at [facility] OR ??? Osteotomy femur shaft/supracondy 08/15/2010 ??OSTEOTOMY, FEMUR SHAFT OR SUPRACONDYLAR W/O FIXATION performed by YAS OLIVER at [facility] OR ??? Remove spinal canal catheter N/A 05/11/2014 REMOVAL OF INTRATHECAL OR EPIDURAL CATHETER performed by Jamaal Samuel MD at [facility] OR ??? Remove infusn device/pump N/A 05/11/2014 REMOVAL OF SPINE INFUSION PUMP performed by Jamaal Samuel MD at [facility] OR ? ? I&d, post spine, lumb/sacr/lumbosac N/A 05/20/2014 @I & D, OPEN, DEEP ABSCESS, LUMBAR, SACRAL, LUMBOSACRAL performed by Freddy Burciaga MD at [facility] OR ??? Repr, dural/csf leak, not req laminectomy N/A 05/20/2014 @REPAIR DURAL\CSF LEAK,NOT REQUIRING LAMINECTOMY performed by Freddy Burciaga MD at [facility] MAIN OR Social History: Patient lives with her family in a single story home in [place], [place]. Pt's mother reports that there is no stair requirement, and that she has all necessary equipment. Stairs: 0 without a rail to enter Baseline Mobility: Completely dependent for all care, home nursing VNA services 3x/week, school-based PT/OT/DIGITAL STRATEGY DIRECTOR, pt due to receive a communication [...] appropriate and joins in counting with this functional tester typewriters while stretching Objective: Pt seen for evaluation [...] minutes Natividad Esqueda PT, DPT 05/24/2014 Pager: [phone] Physical Therapy Inpatient Rehabilitation Department * Plan [...] based on it's ability to penetrate the METAL POLISHER AND BUFFER APPRENTICE. We need todiscuss whether to pursue an [...] to 40 mEq. One dose of IV [id number] mEq administered per orders. Re-check of K [...] and Lipase were normal. Per her daycare construction job cost estimator, may be related to administration of oxycodone as this has been issue in the past. Cannotexclude component of baclofen withdrawal, but less likely. No current concern for acute METAL POLISHER AND BUFFER APPRENTICE process. - Serial exams. Ensure daily BMs [...] although it may not have the best METAL POLISHER AND BUFFER APPRENTICE penetration unless meninges are actually inflamed. - [...] fluid only. MD called for antiemetic and MD tylenol. Zofran given when order receivedand med [...] PREVENTION: Assistance: Full assist, mom at bedside. inspector aide will be coming in today to [...] Burciaga MD - 05/21/2014 11:53 AM EST [facility] [place] Note Patient Name: Tana Shelton : [id number] MR#: [id number] Case Date: 05/20/2014 - 05/21/2014 Surgeon: Surgeon(s) [...] BILATERAL performed by YAS OLIVER [facility] MAIN OR ??? Apply of hip casts, two legs 08/15/2010 CAST APPLICATION, HIP SPICA, BOTH LEGS performed by YAS OLIVER at [facility] MAIN OR ??? Removal deep implant 08/15/2010 REMOVAL IMPLANT, DEEP, BRUNO performed by YAS OLIVER at [facility] MAIN OR ??? Osteotomy femur shaft/supracondy 08/15/2010 ??OSTEOTOMY, FEMUR SHAFT OR SUPRACONDYLAR W/O FIXATION performed by YAS OLIVER at [facility] MAIN OR ??? Remove spinal canal catheter N/A 05/11/2014 REMOVAL OF INTRATHECAL OR EPIDURAL CATHETER performed by Jamaal Samuel MD at [facility] MAIN OR ??? Remove infusn device/pump N/A 05/11/2014 REMOVAL OF SPINE INFUSION PUMP performed by Jamaal Samuel MD at [facility] MAIN OR No family history [...] mcL Appearance UA Hazy (*) Clear Spec Purdy UA 1.026 1.002 - 1.030 Color UA [...] TANA SHELTON Ordered By: Freddy BURCIAGA MR#: [id number] LOC: OR /Sex: 1995 (18 years), Female PROCEDURE: Tissue Culture SOURCE: Back COLLECTED: 05/20/2014 20:20 FREE TEXT SOURCE: Lumbar Wound Culture STARTED: 05/20/2014 22:13 STAINS / PREPARATIONS Gram Stain Report Verified:05/20/2014 22:28 Few White Blood Cells seen No microorganisms seen. TISSUE CULTURE Result Value Range Tissue Culture Value: Patient Name: TANA SHELTON Ordered By: Freddy BURCIAGA MR#: [id number] LOC: OR /Sex: 1995 (18 years), Female [...] PM EST Office [place] [address] Hollie Ambriz MD [facility] [address] [place] [address] Pending Results Name Type Priority Associated Diagnoses [...] 5:00 AM EST DIFFERENTIAL, AUTOMATED Routine 05/25/19 5:00 AM EST CBC (WITH DIFF) Routine [...] 6:10 AM EST DIFFERENTIAL, AUTOMATED Routine 05/22/19 6:10 AM EST CBC (WITH DIFF) Routine [...] REQUIRING LAMINECTOMY Routine 05/20/2014 10:22 PM EST OVEN LABORER CULTURE Routine 5 10:01 PM EST ANAEROBIC [...] MD HEMATOLOGY ORDERABLE S Performing Organization Address City/[facility]/ZIP Co de Phone Number CERALIN MILLENNIUM * (ABNORMAL) Hemogram (06/02/2014 5:55 AM [...] 5:55 AM EST) [facility] Glucose 75 60 - 199 mg/dL CERNER MILLENNIUM Comment:Diabetes: >=200 mg/d L plus symptoms Blood Urea Nitrogen 5(L) 8 - 18 mg/dL CERNER MILLENNIUM Creatinine 0.30(L) 0.70 - 1.20 mg/dL CERNER MILLENNIUM Comment: Please note that the pediatric reference intervals supplied above were not validated at [facility]. Results from pediatric patients should be interpreted [...] the following links into your internet browser. [email or web address]ADTELLIGENCE/DHnkdep [email or web address]ADTELLIGENCE/DHMCnkf Blood specimen (specimen) 06/02/2014 5:55 AM EST 06/02/2014 6:09 AM EST Narrative Resulting Agency Comment Spec In Lab S Alek Burciaga MD CHEMISTRY ORDERABLES [facility] * (ABNORMAL) Sedimentation rate (06/01/2014 12:40 PM EST) Sedimentation Rate Automated 46(H) 0 - 20 mm/hr LINDA BASHIR Blood specimen (specimen) Venous Draw / Unknown 06/01/2014 12:40 PM EST 06/01/2014 12:48 PM EST Narrative Resulting Agency Comment Spec In Lab S Alek Burciaga MD HEMATOLOGY ORDERABLE S Performing Organization Address [facility] Phone Number [facility] * High Sensitivity CRP (06/01/2014 12:40 PM EST) Pathologist [facility] C-Reactive Protein High Sensitivity 15.4 mg/L [facility] Comment: Interpretations: 1) For accurate cardiac [...] CHEMISTRY ORDERABLES Performing Organization Address [facility] Phone Number [facility] * Differential, Automated (06/01/2014 12:40 PM EST) Neutrophil % 66.8 % [facility] Neutrophil Absolute 4.96 1.50 - 6.30 x10(3)/mcL [...] intervals supplied above were not validated at [facility]. Results from pediatric patients should be interpreted [...] the following links into your internet browser. [email or web address] Blood specimen (specimen) 06/01/2014 12:40 PM EST [...] ORDERABLE S Performing Organization Address [facility]/ZIP Co de Phone Number CERNER MILLENNIUM [...] intervals supplied above were not validated at [facility]. Results from pediatric patients should be interpreted [...] the following links into your internet browser. [email or web address]://[email or web address] [email or web address] Blood specimen (specimen) 05/30/2014 6:50 AM EST 05/30/2014 7:02 AM EST Narrative Resulting Agency Comment Spec In Lab S Alek Burciaga MD CHEMISTRY ORDERABLES CERALIN MILLENNIUM * Differential, Automated (05/29/2014 7:13 AM [...] intervals supplied above were not validated at [facility]. Results from pediatric patients should be interpreted [...] the following links into your internet browser. [email or web address]://[email or web address] [email or web address] Blood specimen (specimen) 05/29/2014 7:13 AM EST [...] Lab S Alek Burciaga MD CHEMISTRY ORDERABLES [facility] * (ABNORMAL) Basic Metabolic Panel (non-fasting) (05/28/2014 9:00 AM EST) [facility] Glucose 121 60 - 199 mg/dL CERNER MILLENNIUM Comment:Diabetes: >=200 mg/d L plus symptoms Blood Urea Nitrogen 4(L) 8 - 18 mg/dL CERNER MILLENNIUM Creatinine 0.29(L) 0.70 - 1.20 mg/dL CERNER MILLENNIUM Comment: Please note that the pediatric reference intervals supplied above were not validated at [facility]. Results from pediatric patients should be interpreted [...] the following links into your internet browser. [email or web address]://[employer]ADTELLIGENCE/DHnkdep [email or web address] Blood specimen (specimen) 05/28/2014 9:00 AM EST [...] * (ABNORMAL) Hemogram (05/27/2014 5:30 AM EST) [facility] White Blood Cell 6.8 4.0 - 10.0 [...] S Alek Burciaga MD HEMATOLOGY ORDERABLE S [facility] * (ABNORMAL) Basic Metabolic Panel (non-fasting) (05/27/2014 5:30 AM EST) [facility] Glucose 81 60 - 199 mg/dL CERNER MILLENNIUM Comment:Diabetes: >=200 mg/d L plus symptoms Blood Urea Nitrogen 4(L) 8 - 18 mg/dL CERNER MILLENNIUM Creatinine 0.21(L) 0.70 - 1.20 mg/dL CERNER MILLENNIUM Comment: Please note that the pediatric reference intervals supplied above were not validated at [facility]. Results from pediatric patients should be interpreted [...] the following links into your internet browser. [email or web address]://[email or web address] Blood specimen (specimen) 05/27/2014 5:30 AM EST 05/27/2014 5:39 AM EST Narrative Resulting Agency Comment Spec In Lab Freddy Burciaga MD CHEMISTRY ORDERABLES Performing Organization Address City/State/[facility] Co tn Phone Number [facility] * Anaerobic Culture (05/26/2014 5:30 PM EST) Anaerobic Culture ? Patient Name: TANA SHELTON ? Ordered By: Freddy BURCIAGA ? MR#: [id number] ?LOC: ??[place] ? /Sex: ??1995 (18 years), ? Female ? PROCEDURE: Anaerobic Culture ?SOURCE: Back ? COLLECTED: 05/26/2014 17:30 ?FREE TEXT SOURCE: Lumbar ? STARTED: 05/26/2014 17:41 ? FINAL REPORT ? Final Report ? Verified:2014 12:55 ? No anaerobic organisms isolated ? PRELIMINARY REPORT ? Preliminary Report ? Verified:2014 12:08 ? No anaerobic organisms isolated to date ? [facility] Structure of back of trunk (body structure) 05/26/2014 5:30 PM EST 05/26/2014 5:41 PM EST Comment:LUMBAR Narrative Resulting Agency Comment Spec In Lab Freddy Burciaga MD MICROBIOLOGY - GENER AL ORDERABLES [facility] * Tissue culture (05/26/2014 5:30 PM EST) Tissue Culture ? Patient Name: TANA SHELTON ? Ordered By: Freddy BURCIAGA ? MR#: [id number] ?LOC: ??[place] ? /Sex: ??1995 (18 years), [...] S ? Patient: TANA SHELTON ? MR#: [id number] ? S=Susceptible ??I=Intermediate ??R=Resistant ??NA=Not Applicable ? DDS=Dose dependent-suscept ible ??NS=Non-suscepti ble ? [facility] Structure of back of trunk (body structure) 05/26/2014 5:30 PM EST 05/26/2014 5:41 PM EST Comment:LUMBAR Narrative Resulting Agency Comment Spec In Lab Freddy Burciaga MD MICROBIOLOGY - GENER AL ORDERABLES [facility] * Anaerobic Culture (05/26/2014 5:30 PM EST) Anaerobic Culture ? Patient Name: TANA SHELTON ? Ordered By: Freddy BURCIAGA ? MR#: [id number] ?LOC: ??PA ? /Sex: ??1995 (18 years), ? Female ? PROCEDURE: Anaerobic Culture ?SOURCE: Other ? COLLECTED: 05/26/2014 17:30 ?FREE TEXT SOURCE: Anterior Flank ? STARTED: 05/26/2014 17:41 ? FINAL REPORT ? Final Report ? Verified:2014 12:54 ? No anaerobic organisms isolated ? PRELIMINARY REPORT ? Preliminary Report ? Verified:2014 12:08 ? No anaerobic organisms isolated to date ? LINDA MILLENNIUM Specimen of unknown material (specimen) 05/26/2014 5:30 PM EST 05/26/2014 5:41 PM EST Comment:ANTERIOR FLANK Narrative Resulting Agency Comment Spec In Lab Freddy Burciaga MD MICROBIOLOGY - GENER AL ORDERABLES LINDA BASHIR * Tissue culture (05/26/2014 5:30 PM EST) Tissue Culture ? Patient Name: TANA SHELTON ? Ordered By: Freddy BURCIAGA ? MR#: [id number] ?LOC: ??[place] ? /Sex: ??1995 (18 years), [...] plates. ? Patient: TANA SHELTON ? MR#: [id number] ? SUSCEPTIBILITY RESULTS ? Coagulase negative Staphylococcus [...] (1) ? Gentamicin is not appropriate for [place]-therapy. ? (2) ? Penicillin resistant, Nafcillin susceptible [...] MD MICROBIOLOGY - GENER AL ORDERABLES [facility]ETER[facility] PH[facility]ENIX[facility]APHAEL * Anaerobic Culture (05/26/2014 5:30 PM EST) Anaerobic Culture ? Patient Name: TANA SHELTON ? Ordered By: Freddy BURCIAGA ? MR#: [id number] ?LOC: ??PA ? /Sex: ??1995 (18 years), ? Female ? PROCEDURE: Anaerobic Culture ?SOURCE: Other ? COLLECTED: 05/26/2014 17:30 ?FREE TEXT SOURCE: Posterior flank ? STARTED: 05/26/2014 17:41 ? FINAL REPORT ? Final Report ? Verified:2014 12:54 ? No anaerobic organisms isolated ? PRELIMINARY REPORT ? Preliminary Report ? Verified:2014 12:08 ? No anaerobic organisms isolated to date ? LINDA MILLENNIUM Specimen of unknown material (specimen) 05/26/2014 5:30 PM EST 05/26/2014 5:41 PM EST Comment:POSTERIOR FLANK Narrative Resulting Agency Comment Spec In Lab Freddy Burciaga MD MICROBIOLOGY - GENER AL ORDERABLES LINDA KEMPIUM * Tissue culture (05/26/2014 5:30 PM EST) Tissue Culture ? Patient Name: CRISTO SHELTONLIArthur Hayes ? Ordered By: Freddy BURCIAGA ? MR#: [id number] ?LOC: ??[place] ? /Sex: ??1995 (18 years), [...] Screen Interp Negative CERNER MILLENNIUM Expires at [id number] on: [id number] CERNER THOMENNIUM Blood specimen (specimen) 05/26/2014 12:40 PM EST 05/26/2014 12:59 PM EST Narrative Resulting Agency Comment Spec In Lab S Alek Burciaga MD BLOOD BANK LAB ORDER MYRANDA LINDA TOMASPerformance Marketing [employer], [employer] * ABO/Rh Typing (05/26/2014 12:40 PM EST) [...] S Alek Burciaga MD HEMATOLOGY ORDERABLE S [facility] MILLEN[facility] * (ABNORMAL) Basic Metabolic Panel (non-fasting) (05/26/2014 4:15 AM EST) [facility] Glucose 88 60 - 199 mg/dL CERNER MILLENNIUM Comment:Diabetes: >=200 mg/d L plus symptoms Blood Urea Nitrogen 6(L) 8 - 18 mg/dL CERNER MILLENNIUM Creatinine 0.28(L) 0.70 - 1.20 mg/dL CERNER MILLENNIUM Comment: Please note that the pediatric reference intervals supplied above were not validated at [facility]. Results from pediatric patients should be interpreted [...] the following links into your internet browser. [email or web address] Blood specimen (specimen) 05/26/2014 4:15 AM EST 05/26/2014 4:35 AM EST Narrative Resulting Agency Comment Spec In Lab S Alek Burciaga MD CHEMISTRY ORDERABLES LINDA BASHIR * Place PICC Line: Contact Vascular Access Page [phone] (05/25/2014 4:01 PM EST) Narrative [place] [...] to the planned procedure. Hand Hygiene: The school bus driver/custodian did perform hand hygiene prior to line insertion. Catheter type: PICC Lot number: [id number] Procedure Technique: Skin was prepped with chlorhexidine. [...] focal. COMPARISON: Scoliosis radiographs from 12/16/2011 FINDINGS: [place] views demonstrate severe rightward scoliotic deformity centered [...] No gross collections in the cervical spine. [place] coronal image 8 of series 8 demonstrates extensive supratentorial parenchymal loss in the left hemisphere not completely characterized on this exam. Thoracic spine: Metallic artifact obscures much of the cord and posterior elements. No aggressive appearing marrow lesions are seen in the visualized thoracic spine. Visualized Disc spaces are normal. Procedure Note Andarde Roth MD - 05/25/2014 EXAMINATION: MR Cspine and thoracic WO Johnny CLINICAL HISTORY: wound infection s/p harware removel. ? intrathecal inf,focal. COMPARISON: Scoliosis radiographs from 12/16/2011 FINDINGS: [place] views demonstrate severe rightward scoliotic deformity centered [...] abnormalities. No grosscollections in the cervical spine. [place] coronal image 8 of series 8 demonstrates [...] Narrative 05/25/2014 4:10 PM EST See accession #[id number] for dictation of this study. This report was reviewed by Andrade Rebolledo MD at 05/25/2014 4:05 PM Film and interpretation reviewed by the attending Procedure Note Andrade Roth MD - 05/25/2014 See accession #[id number] for dictation of this study. This report [...] Metabolic Panel (non-fasting) (05/25/2014 5:00 AM EST) [facility] Glucose 87 60 - 199 mg/dL CERNER MILLENNIUM Comment:Diabetes: >=200 mg/d L plus symptoms Blood Urea Nitrogen 6(L) 8 - 18 mg/dL CERNER MILLENNIUM Creatinine 0.27(L) 0.70 - 1.20 mg/dL CERNER MILLENNIUM Comment: Please note that the pediatric reference intervals supplied above were not validated at [facility]. Results from pediatric patients should be interpreted [...] the following links into your internet browser. [email or web address]://[email or web address] [email or web address] Blood specimen (specimen) 05/25/2014 5:00 AM EST [...] 8 - 18 mg/dL CERNER MILLENNIUM Comment:result rechecked-[facility] Creatinine 0.39(L) 0.70 - 1.20 mg/dL CERNER MILLENNIUM Comment: Please note that the pediatric reference intervals supplied above were not validated at [facility]. Results from pediatric patients should be interpreted [...] the following links into your internet browser. [email or web address]://[employer]ADTELLIGENCE/DHnkdep [email or web address] Blood specimen (specimen) 05/24/2014 12:42 PM EST 05/24/2014 12:42 PM EST Narrative Resulting Agency Comment Spec In Lab S Aelk Burciaga MD CHEMISTRY ORDERABLES Performing Organization Address [facility] Co de Phone Number LINDA KEMPIUM * Vancomycin, trough (05/24/2014 12:29 PM EST) [...] CHEMISTRY ORDERABLES Performing Organization Address [facility] de Phone Number LINDA TOMASENNIUM * (ABNORMAL) Electrolytes panel (05/23/2014 12:30 [...] CHEMISTRY ORDERABLES Performing Organization Address [facility] Co de Phone Number CERALIN TOMASENNIUM [...] CHEMISTRY ORDERABLES Performing Organization Address [facility] Phone Number CERNER MILLENNIUM * (ABNORMAL) Phosphorus (05/22/2014 12:45 PM EST) Phosphorus 2.2(L) 2.5 - 4.5 mg/dL CERNER MILLENNIUM Blood specimen (specimen) Venous Draw / Unknown 05/22/2014 12:45 PM EST 05/22/2014 1:03 PM EST Narrative Resulting Agency Comment Spec In Lab Lucho Smith MD CHEMISTRY ORDERABLES Performing Organization Address [facility] de Phone Number CERNER MILLENNIUM * Magnesium (05/22/2014 12:45 PM EST) Magnesium 0.69 0.69 - 1.07 mmol/L CERNER MILLENNIUM Blood specimen (specimen) Venous Draw / Unknown 05/22/2014 12:45 PM EST 05/22/2014 1:03 PM EST Narrative Resulting Agency Comment Spec In Lab Lucho Smith MD CHEMISTRY ORDERABLES Performing Organization Address [facility] Co de Phone Number CERNER MILLENNIUM * Lipase (05/22/2014 12:45 PM EST) Lipase 44 0 - 60 unit/L CERNER MILLENNIUM Blood specimen (specimen) 05/22/2014 12:45 PM EST 05/22/2014 1:03 PM EST Narrative Resulting Agency Comment Spec In Lab Lucho Smith MD CHEMISTRY ORDERABLES Performing Organization Address [facility] de Phone Number CERNER MILLENNIUM * Amylase (05/22/2014 12:45 PM EST) Amylase 89 28 - 100 unit/L CERNER MILLENNIUM Blood specimen (specimen) 05/22/2014 12:45 PM EST 05/22/2014 1:03 PM EST Narrative Resulting Agency Comment Spec In Lab Lucho Smith MD CHEMISTRY ORDERABLES Performing Organization Address [facility] de Phone Number CERNER MILLENNIUM * (ABNORMAL) Comprehensive metabolic panel (non-fasting) (05/22/2014 12:45 PM EST) Glucose 81 60 - 199 mg/dL CERNER MILLENNIUM Comment:Diabetes: >=200 mg/d L plus symptoms Blood Urea Nitrogen 2(L) 8 - 18 mg/dL CERNER MILLENNIUM Creatinine 0.31(L) 0.70 - 1.20 mg/dL CERNER MILLENNIUM Comment: Please note that the pediatric reference intervals supplied above were not validated at [facility]. Results from pediatric patients should be interpreted [...] the following links into your internet browser. [email or web address] [email or web address] Blood specimen (specimen) 05/22/2014 12:45 PM EST [...] ORDERABLE S Performing Organization Address [facility] Co de Phone Number LINDA BASHIR [...] CHEMISTRY ORDERABLES Performing Organization Address [facility] Co de Phone Number [facility] * (ABNORMAL) Basic Metabolic Panel (non-fasting) (05/22/2014 6:10 AM EST) Glucose 86 60 - 199 mg/dL [facility] MILLENNIUM Comment:Diabetes: >=200 mg/d L plus symptoms Blood Urea Nitrogen 3(L) 8 - 18 mg/dL CERNER MILLENNIUM Creatinine 0.27(L) 0.70 - 1.20 mg/dL CERNER MILLENNIUM Comment: Please note that the pediatric reference intervals supplied above were not validated at [facility]. Results from pediatric patients should be interpreted [...] the following links into your internet browser. http://[employer]/DHnkdep http://[employer]/[email or web address] Blood specimen (specimen) 05/22/2014 6:10 AM EST [...] intervals supplied above were not validated at [facility]. Results from pediatric patients should be interpreted [...] the following links into your internet browser. [email or web address]://[email or web address] http://[email or web address] Blood specimen (specimen) 05/21/2014 4:23 AM EST 05/21/2014 4:38 AM EST Narrative Resulting Agency Comment Spec In Lab Freddy Burciaga MD CHEMISTRY ORDERABLES Performing Organization Address City/State/[facility] Co tn Phone Number [facility] * Networking Specialist Culture (05/20/2014 10:01 PM EST) Networking Specialist Culture ? Patient Name: TANA SHELTON ? Ordered By: Freddy BURCIAGA ? MR#: [id number] ?LOC: ??[place] ? /Sex: ??1995 (18 years), ? Female ? PROCEDURE: Networking Specialist Culture ?SOURCE: Other ? COLLECTED: 05/20/2014 22:01 [...] ? Ordered By: Freddy BURCIAGA ? MR#: [id number] ?LOC: ??[place] ? /Sex: ??1995 (18 years), [...] ? Ordered By: Freddy BURCIAGA ? MR#: [id number] ?LOC: ??[place] ? /Sex: ??1995 (18 years), [...] ?S ? Tobramycin ? S ? Patient: [place] ? MR#: [id number] ? S=Susceptible ??I=Intermediate ??R=Resistant ??NA=Not Applicable ? [...] ? Ordered By: Freddy BURCIAGA ? MR#: [id number] ?LOC: ??[place] ? /Sex: ??1995 (18 years), [...] ? Ordered By: Freddy BURCIAGA ? MR#: [id number] ?LOC: ??[place] ? /Sex: ??1995 (18 years), [...] ? Ordered By: BELKIS LOUIE ? MR#: [id number] ?LOC: ??[place] ? /Sex: ??1995 (18 years), ? Female ? PROCEDURE: Urine Culture ?SOURCE: U [facility] ? COLLECTED: 05/20/2014 18:46 ? STARTED: [...] Urine Dipstick Hazy(A) Clear CERNER MILLENNIUM Specific [place] Urine Automated 1.026 1.002 - 1.030 CERNER [...] In Lab Belkis Louie MD URINE ORDERABLES [facility] * L-Lactate2 Whole Blood (05/20/2014 6:17 PM EST) Pathologist [facility] Lactate WB 1.6 0.5 - 2.2 mmol/L [facility] Blood specimen (specimen) 05/20/2014 6:17 PM EST 05/20/2014 6:17 PM EST Belkis Louie MD CHEMISTRY ORDERABLES [facility] * Blood culture (05/20/2014 6:00 PM EST) Blood Culture ? Patient Name: TANA SHELTON ? Ordered By: BELKIS LOUIE ? MR#: [id number] ?LOC: ??[place] ? /Sex: ??1995 (18 years), [...] Louie MD CHEMISTRY ORDERABLES LINDA BASHIR * Differential, Automated (05/20/2014 5:15 PM EST) [...] MD HEMATOLOGY ORDERABLE S Performing Organization Address City/[facility]/ZIP Co de Phone Number CERALIN TOMASENNIUM [...] Belkis Louie MD HEMATOLOGY ORDERABLE S LINDA KEMPIUM * Blood culture (05/20/2014 5:15 PM EST) Blood Culture ? Patient Name: TANA SHELTON ? Ordered By: BELKIS LOUIE ? MR#: [id number] ?LOC: ??[place] ? /Sex: ??1995 (18 years), [...] Louie MD MICROBIOLOGY - BLOOD ORDERABLES LINDA BASHIR * Glucose, random (05/20/2014 5:15 PM EST) Glucose 81 60 - 199 mg/dL [facility] Comment:Diabetes: >=200 mg/d L plus symptoms Blood specimen (specimen) 05/20/2014 5:15 PM EST 05/20/2014 5:31 PM EST Narrative Resulting Agency Comment Spec In Lab Belkis Louie MD CHEMISTRY ORDERABLES Performing Organization Address [facility] Co de Phone Number [facility]OM[facility]AL[facility] * (ABNORMAL) Creatinine (05/20/2014 5:15 PM EST) Creatinine 0.37(L) 0.70 - 1.20 mg/dL [facility] Comment: Please note that the pediatric reference intervals supplied above were not validated at [facility]. Results from pediatric patients should be interpreted in conjunction to the patient's age, height and muscle mass. Est Glomerular Filtration Rate >60 >=60 [facility] Comment: This estimated GFR (eGFR) value [...] the following links into your internet browser. [email or web address] Blood specimen (specimen) 05/20/2014 5:15 PM EST 05/20/2014 5:31 PM EST Narrative Resulting Agency Comment Spec In Lab Belkis Louie MD CHEMISTRY ORDERABLES Performing Organization Address City/[facility] Co de Phone Number LINDA BASHIR * BUN (05/20/2014 5:15 PM EST) Blood Urea Nitrogen 9 8 - 18 mg/dL [facility] Blood specimen (specimen) 05/20/2014 5:15 PM [...] Louie MD CHEMISTRY ORDERABLES Performing Organization Address City/[facility]/ZIP Co de Phone Number LINDA BASHIR documented [...] Nely Boss, Indication 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 or Suspected): 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 0616 (Given - Provider: Linsey Mcintyre RN)1446 [...] Structure 0804 (Given - Provider: Linsey Mcintyre RN)205 (Given - Provider: Linsey Mcintyre RN) 0700 (Given - Provider: Dolores Patino RN)2010 (Given - Provider: Margot Monzon RN) 0831 [...] RN)1817 (Given - Provider: Dolores Patino RN) 012 (Given - Provider: Margot Monzon, EUNICE)0836 (Given [...] Oral, EVERY 4 HOURS PRN, Starting on Thu05/20/14 at 2225, Until Thu06/02/14 at 1832, Pain, [...] Routine documented in this encounter Care Teams Residency Program Coordinator Relationship Specialty Start Date End Date Naina Lindsey MD [address] [place] [address] [place] [address] PCP - General 03/19/10 08/25/16 documented as of this encounter
--- OUTSIDE RECORDS SUMMARY | 2023-12-04 12:42 | XMS_ITS | Encounter Summary ---
Author Organization [facility] [place] [address] Care Team Providers Care Research Laboratory Manager Name Role Phone Naina Lindsey MD Primary Care Provider [phone] Encounter Details Date Type Department Care Team (Late st Contact Info) Description 05/11/2014 7:31 AM EST Anesthesia Event [place] [address] Danielle Kwan MD [facility] [place] [address] Anesthesia Record Procedure Summary Procedure Name Responsible [...] 0731; metacarpal vein right (top of hand); [id number] catheter system; 22 gauge; Delmer; 05/12/14; 141605/11/14 [...] performed by [facility] MAIN OR ??? Apply of hip casts, two legs 08/15/2010 CAST APPLICATION, HIP SPICA, BOTH LEGS performed by BARRERA OLIVER at [facility] MAIN OR ??? Removal deep implant 08/15/2010 REMOVAL IMPLANT, DEEP, BRUNO performed by BARRERA OLIVER at [facility] MAIN OR ??? Osteotomy femur shaft/supracondy 08/15/2010 ??OSTEOTOMY, FEMUR SHAFT OR SUPRACONDYLAR W/O FIXATION performed by BARRERA OLIVER at [facility] MAIN OR History Substance Use Topics [...] full Cardiovascular Assessment: Pulmonary Assessment: [facility] Anest[facility] Plan: ASA 2 general, with [...] and mother whom consented to blood products. [facility]. Assessment: documented in this encounter Plan of Treatment Upcoming Encounters Date Type Department Care Team (Late st Contact Info) Description 06/02/2024 12:30 PM EST Office Visit Infectious Disease at [facility] [place] [place] [phone] Hollie Ambriz MD [facility] INFECTIOUS [place] [address] documented as of this encounter Visit Diagnoses [...] mg documented in this encounter Care Teams Research Laboratory Manager Relationship Specialty Start Date End Date Naina Lindsey MD [address] [place] [address] PCP - General 03/19/10 08/25/16 documented as of this encounter
--- OUTSIDE RECORDS SUMMARY | 2023-12-04 12:42 | XMS_ITS | Encounter Summary ---
Author Organization [facility] Address [facility] [place] [address] Care Team Providers Care Floral Design Teacher Name Role Phone Naina Lindsey MD Primary Care Provider [phone] Reason for Visit * Reason Comments Follow-up PRE-SURGERY QUESTION S Encounter Details Date Type Department Care Team (Late st Contact Info) Description 05/03/2014 3:00 PM EST Follow-Up [place] [address] Jamaal Samuel MD [facility] DR [place] [address] Presence of intrathecal baclofen pump Discharge Disposition: [...] pump placed for increased extremity tone at [facility] in 2007 but mom believes the [...] PM EST Office Visit [place] [address] Hollie Ambriz MD [facility] [place] [address] documented as of this encounter Visit Diagnoses Diagnosis Presence of intrathecal baclofen pump documented in this encounter Care Teams Floral Design Teacher Relationship Specialty Start Date End Date Naina Lindsey MD [address] [place] [address] [place] [address] PCP - General 03/19/10 08/25/16 documented as of this encounter
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
--- OUTSIDE RECORDS SUMMARY | 2023-12-04 12:42 | XMS_ITS | Encounter Summary ---
Author Organization [facility] [place] [address] Care Team Providers Care Research Center Director Name Role Phone Naina Lindsey MD Primary Care Provider [phone] Encounter Details Date Type Department Care Team (Late st Contact Info) Description 05/03/2014 Unscheduled Encounter [place] [address] Alek Sinha, SECURITY PROJECT MANAGER [facility] [address] [place] [address] Spasticity Social History Tobacco Use Types Packs/Day [...] her tone. She has been seen at [facility] by Barron Dotson who has weaned the [...] Office [place] [address] Hollie Ambriz MD [facility] [place] [address] documented as of this encounter Visit Diagnoses Diagnosis Spasticity Abnormal involuntary movements documented in this encounter Care Teams Research Center Director Relationship Specialty Start Date End Date Naina Lindsey MD [address] [place] [address] PCP - General 03/19/10 08/25/16 documented as of this encounter
--- OUTSIDE RECORDS SUMMARY | 2023-12-04 12:42 | XMS_ITS | Encounter Summary ---
Author Organization [facility] [place] [address] Care Team Providers Care Galvanizer Zinc Name Role Phone Naina Lindsey MD Primary Care Provider [phone] Encounter Details Date Type Department Care Team (Latest Contact Info) Description 03/29/2014 4:15 PM EST Procedure [place] [address] Donnell Dotson MD [facility] [place] [address] Traumatic brain injury, subsequent encounter; Abnormal involuntary [...] would be in order. Donnell Dotson MD Bakery And Deli Sales Manager of Anesthesiology [facility] documented in this encounter Plan of Treatment Upcoming Encounters Date Type Department Care Team (Late st Contact Info) Description 06/02/2024 12:30 PM EST Office [place] [address] Hollie Ambriz MD [facility] [place] [address] documented as of this encounter Procedures Procedure [...] would be in order. Donnell Dotson MD Bakery And Deli Sales Manager of Anesthesiology [facility] Donnell Dotson MD PROCEDURE/MINOR SURG ICAL ORDERABLES documented in this encounter Visit Diagnoses Diagnosis Traumatic brain injury, subsequent encounter Abnormal involuntary movements(781.0) Abnormal involuntary movements documented in this encounter Care Teams Galvanizer Zinc Relationship Specialty Start Date End Date Naina Lindsey MD [address] [place] [address] PCP - General 03/19/10 08/25/16 documented as of this encounter
--- OUTSIDE RECORDS SUMMARY | 2023-12-04 12:42 | XMS_ITS | Encounter Summary ---
Author Organization [facility] [place] [address] Care Team Providers Care Business Intelligence Etl Developer Name Role Phone Naina Lindsey MD Primary Care Provider [phone] Encounter Details Date Type Department Care Team (Latest Contact Info) Description 05/03/2014 4:15 PM EST Procedure [place] [address] Donnell Dotson MD [facility] [place] [address] Presence of intrathecal baclofen pump Discharge Disposition: [...] Jamaal Samuel relatively soon. Donnell Dotson MD Lining Caser of Anesthesiology Pain Management Center [facility] documented in this encounter Plan of Treatment Upcoming Encounters Date Type Department Care Team (Late st Contact Info) Description 06/02/2024 12:30 PM EST Office [place] [address] Hollie Ambriz MD [facility] [place] [address] documented as of this encounter Visit Diagnoses Diagnosis Presence of intrathecal baclofen pump documented in this encounter Care Teams Business Intelligence Etl Developer Relationship Specialty Start Date End Date Naina Lindsey MD [address] [place] [address] [place] [address] PCP - General 03/19/10 08/25/16 documented as of this encounter
--- OUTSIDE RECORDS SUMMARY | 2023-12-04 12:42 | XMS_ITS | Encounter Summary ---
Author Organization [facility] [place] [address] Care Team Providers Care Fudger Name Role Phone Naina Lindsey MD Primary Care Provider Encounter Details Date Type Department Care Team (Late st Contact Info) Description 03/10/2014 Orders Only [place] [address] Alek Sinha, [place] [facility] [place] [address] Pre-op chest exam; Pre-op evaluation Social History [...] PM EST Office [place] [address] Hollie Ambriz MD [facility] [place] [address] documented as of this encounter Visit Diagnoses Diagnosis Pre-op chest exam Pre-operative respiratory examination Pre-op evaluation Preoperative examination, unspecified documented in this encounter Care Teams Fudger Relationship Specialty Start Date End Date Naina Lindsey MD [address] [place] [address] PCP - General 03/19/10 08/25/16 documented as of this encounter
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
--- OUTSIDE RECORDS SUMMARY | 2023-12-04 12:42 | XMS_ITS | Encounter Summary ---
Author Organization [facility] [place] [address] Care Team Providers Care Electrical Systems Engineer Name Role Phone Naina Lindsey MD Primary Care Provider [phone] Reason for Visit * Reason Comments Pain Management Encounter Details Date Type Department Care Team (Latest Contact Info) Description 04/25/2014 4:15 PM EST Procedure [place] [address] Donnell Dotson MD [facility] [place] [address] Spasticity; Presence of intrathecal baclofen pump; Cerebral [...] PM EST Office [place] [address] Hollie Ambriz MD [facility] [place] [address] documented as of this encounter Procedures Procedure [...] status or spasticity. Donnell Dotson MD Donnell Doston MD PROCEDURE/MINOR SURG ICAL ORDERABLES documented in this encounter Visit Diagnoses Diagnosis Spasticity Abnormal involuntary movements Presence of intrathecal baclofen pump Cerebral palsy Infantile cerebral palsy, unspecified documented in this encounter Care Teams Electrical Systems Engineer Relationship Specialty Start Date End Date Naina Lindsey MD [address] [place] [address] PCP - General 03/19/10 08/25/16 documented as of this encounter
--- OUTSIDE RECORDS SUMMARY | 2023-12-04 12:42 | XMS_ITS | Encounter Summary ---
Author Organization [facility] [place] [address] Care Team Providers Care Log Turner Name Role Phone Naina Lindsey MD Primary Care Provider [phone] Encounter Details Date Type Department Care Team (Late st Contact Info) Description 03/03/2014 External Results [place] [address] Donnell Dotson MD [facility] [place] [address] Social History Tobacco Use Types [...] PM EST Office [place] [address] Hollie Ambriz MD [facility] [place] [address] documented as of this encounter Procedures Procedure Name Priority Date/Time Associated Diagnosis Comments IMPLANTABLE DEVICES SCAN Routine 02/28/2014 8:00 AM EST IMPLANTABLE DEVICES SCAN Routine 02/15/2014 8:41 AM EDT IMPLANTABLE DEVICES SCAN Routine 02/09/2014 8:42 AM EDT IMPLANTABLE DEVICES SCAN Routine 01/25/2014 9:19 AM EDT documented in this encounter Visit Diagnoses Not on filedocumented in this encounter Care Teams Log Turner Relationship Specialty Start Date End Date Naina Lindsey MD [address] [place] [address] PCP - General 03/19/10 08/25/16 documented as of this encounter
--- OUTSIDE RECORDS SUMMARY | 2023-12-04 12:42 | XMS_ITS | Encounter Summary ---
Author Organization Formerly [facility] [place] [place] [address] Care Team Providers Care Hydrogeologist Name Role Phone Naina Lindsey MD Primary Care Provider [phone] Reason for Visit * Reason Comments Pain Pain, Chronic Encounter Details Date Type Department Care Team (Latest Contact Info) Description 03/15/2014 4:45 PM EST Procedure [place] [phone] Donnell Dotson MD [facility] [place] [address] Presence of intrathecal baclofen pump; Abnormal involuntary movements(191.0) Discharge Disposition: Home Social History Tobacco Use [...] 25 mcg per day. Donnell Dotson MD Liability Claims Manager of Anesthesiology Pain Management Center [facility] documented in this encounter Plan of Treatment Upcoming Encounters Date Type Department Care Team (Late st Contact Info) Description 06/02/2024 12:30 PM EST Office [place] [address] Hollie Ambriz MD [facility] [place] [address] documented as of this encounter Procedures Procedure [...] 25 mcg per day. Donnell Dotson MD Liability Claims Manager of Anesthesiology Pain Management Center [facility] Donnell Dotson MD PROCEDURE/MINOR SURG ICAL ORDERABLES documented in this encounter Visit Diagnoses Diagnosis Presence of intrathecal baclofen pump Abnormal involuntary movements(781.0) Abnormal involuntary movements documented in this encounter Care Teams Hydrogeologist Relationship Specialty Start Date End Date Naina Lindsey MD [address] [place] [address] PCP - General 03/19/10 08/25/16 documented as of this encounter
--- OUTSIDE RECORDS SUMMARY | 2023-12-04 12:43 | XMS_ITS | Encounter Summary ---
Author Organization Formerly [facility] [place] [address] Care Team Providers Care Cable Weaver Name Role Phone Naina Lindsey MD Primary Care Provider [phone] Reason for Visit * Reason Comments Other pump wean Encounter Details Date Type Department Care Team (Latest Contact Info) Description 02/09/2014 11:45 AM EDT Procedure visit [place] [phone] Donnell Dotson MD [facility] [place] [address] Traumatic brain injury, sequela; Abnormal involuntary movements(761.0) Discharge Disposition: Home Social History Tobacco Use [...] access to your electronic medical record at [facility] and the ability to communicate with [...] the instructions. Here is your activation code: [email or web address] Expires: 03/26/2014 12:29 PM Remember, myD-[facility] is NOT for urgent needs! Always dial 911 for medical emergencies. documented in this encounter Procedure Notes * Donnell Dotson MD - 02/09/2014 2:59 PM EDTAssociated Order(s): INTRATHECAL PUMP REPROGRAMMING Pre-Procedure Diagnose(s): Abnormal involuntary movements(781.0) Patient and mother coming today. Since he was last seen, the orthopedic surgeons and the rest of the team at [facility] have agreed that she no longer needs the intrathecal baclofen. She like to be tapered off the baclofen before the pump is basically no longer effective, 3 months from now. Looking at the [employer] website and calling the local [employer] baclofen pump insurance sales representative, we decided to decrease her [...] Office [place] [address] Hollie Ambriz MD [facility] [place] [address] documented as of this encounter Procedures Procedure [...] and the rest of the team at [facility] have agreed that she no longer needs the intrathecal baclofen. She like to be tapered off the baclofen before the pump is basically no longer effective, 3 months from now. Looking at the [employer] website and calling the local [employer] baclofen pump insurance sales representative, we decided to decrease her [...] and the rest of the team at [facility] haveagreed that she no longer needs the intrathecal baclofen. She like to betapered off the baclofen before the pump is basically no longer effective,3 months from now. Looking at the [employer] website and calling the local [employer] baclofenpump insurance sales representative, we decided to decrease her [...] Low reservoir alarm at the current rate ofAugust 05, 2014. The pump was decreased down [...] movements documented in this encounter Care Teams Cable Weaver Relationship Specialty Start Date End Date Naina Lindsey MD [address] [place] [address] PCP - General 03/19/10 08/25/16 documented as of this encounter
--- OUTSIDE RECORDS SUMMARY | 2023-12-04 12:43 | XMS_ITS | Encounter Summary ---
Author Organization [facility] Benjamin [facility] [place] [address] Care Team Providers Care Timber Mill Worker Name Role Phone Naina Lindsey MD Primary Care Provider [phone] Encounter Details Date Type Department Care Team (Late st Contact Info) Description 07/12/2012 Telephone [place] [phone] Aniket Heredia MD [facility] [place] [address] Social History Tobacco Use Types Packs/Day Years [...] PM EST Office [place] [address] Hollie Ambriz MD [facility] [place] [address] documented as of this encounter Visit Diagnoses Not on filedocumented in this encounter Care Teams Timber Mill Worker Relationship Specialty Start Date End Date Naina Lindsey MD [address] [place] [address] PCP - General 03/19/10 08/25/16 documented as of this encounter
--- OUTSIDE RECORDS SUMMARY | 2023-12-04 12:43 | XMS_ITS | Encounter Summary ---
Author Organization [facility] [place] [address] Care Team Providers Care Cripple Chaser Name Role Phone Naina Lindsey MD Primary Care Provider [phone] Encounter Details Date Type Department Care Team (Late st Contact Info) Description 02/03/2011 Orders [place] [address] Yas Ramirez MD [facility] [place] [address] Acquired dysplasia of hip, bilateral; Scoliosis; Traumatic [...] PM EST Office [place] [address] Hollie Ambriz MD [facility] [place] [address] documented as of this encounter Visit Diagnoses Diagnosis Acquired dysplasia of hip, bilateral Other acquired deformities of hip Scoliosis Scoliosis (and kyphoscoliosis), idiopathic 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
--- OUTSIDE RECORDS SUMMARY | 2023-12-04 12:43 | XMS_ITS | Encounter Summary ---
Author Organization [facility] [place] [address] Care Team Providers Care Supervisor Waterproofing Name Role Phone Naina Lindsey MD Primary Care Provider [phone] Encounter Details Date Type Department Care Team (Late st Contact Info) Description 12/22/2012 Orders [place] [address] Christiano Floyd MD [facility] [place] [address] Social History Tobacco Use Types Packs/Day Years [...] PM EST Office [place] [address] Hollie Ambriz MD [facility] [place] [address] documented as of this encounter Visit Diagnoses Not on filedocumented in this encounter Care Teams Supervisor Waterproofing Relationship Specialty Start Date End Date Naina Lindsey MD [address] [place] [address] [place] [address] PCP - General 03/19/10 08/25/16 documented as of this encounter
--- OUTSIDE RECORDS SUMMARY | 2023-12-04 12:43 | XMS_ITS | Encounter Summary ---
[place] [address] Care Team Providers Care Camera Repairer Name Role Phone Naina Lindsey MD Primary Care Provider [phone] Reason for Visit * Reason Comments Pain Encounter Details Date Type Department Care Team (Latest Contact Info) Description 01/25/2014 4:00 PM EDT Procedure visit [place] [phone] [facility] [place] [address] Traumatic brain injury, subsequent encounter (Primary Dx) [...] Pump Reprogramming Only Procedure Note Tana Cavazos [id number] Date of Refill: January 25, 2014 Primary Centrifuge Separator Operator: KAREN EARLY DO Deck Engine Operator: Donnell Dotson MD Reason for Reprogramming: NA 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 Prior to this surgery the patient had [...] available to conference the patient's physicians at [facility] as this decision is made. The mother will contact the orthopedic surgeon who performed the procedure to get his input as to whether he feels the baclofen has been helping. She will also request referral to a pediatric physiatry doctor at [facility] and will contact us back with [...] PM EST Office [place] [address] Hollie Ambriz MD [facility] [place] [address] documented as of this encounter Visit Diagnoses Diagnosis Traumatic brain injury, subsequent encounter- Primary documented in this encounter Care Teams Camera Repairer Relationship Specialty Start Date End Date Naina Lindsey MD [address] [place] [address] [place] [address] PCP - General 03/19/10 08/25/16 documented as of this encounter
--- OUTSIDE RECORDS SUMMARY | 2023-12-04 12:43 | XMS_ITS | Encounter Summary ---
Author Organization [facility] [place] [address] Care Team Providers Care Forming Machine Upkeep Mechanic Helper Name Role Phone aNina Lindsey MD Primary Care Provider [phone] Encounter Details Date Type Department Care Team (Late st Contact Info) Description 07/12/2012 Telephone [place] [phone] Aniket Heredia MD [facility] [place] [address] Social History Tobacco Use Types Packs/Day Years [...] her child evaluated in the ED at [facility] over the weekend and today again at her credit or loans officer's office. She reports that Tana seems to [...] this plan. Aniket Heredia MD Pain fellow [facility] [place] [facility] documented in this encounter Plan of Treatment Upcoming Encounters Date Type Department Care Team (Late st Contact Info) Description 06/02/2024 12:30 PM EST Office Visit [place] [address] Hollie Ambriz MD [facility] [place] [address] documented as of this encounter Visit Diagnoses Not on filedocumented in this encounter Care Teams Forming Machine Upkeep Mechanic Helper Relationship Specialty Start Date End Date Naina Lindsey MD [address] [place] [address] [place] [address] PCP - General 03/19/10 08/25/16 documented as of this encounter
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
--- OUTSIDE RECORDS SUMMARY | 2023-12-04 12:43 | XMS_ITS | Encounter Summary ---
Author Organization [facility] [place] [address] Care Team Providers Care Former Hand Name Role Phone Naina Lindsey MD Primary Care Provider [phone] Reason for Referral * Consultation (Routine) - Complete - Patient Will Schedule External Appt Specialty Diagnoses / Procedures Referred By Contac t Referred To Contact Orthotics Diagnoses Cerebral palsy Yas Ramirez MD [facility] [place] [address] Referral ID Status Reason Start Date Expiration Date Visits Requested Visits Authorized [id number] Complete - Patient Will Schedule External Appt Assume Subset of Care 09/30/2010 03/29/2011 1 1 * Consultation (Routine) - Complete - Patient Will Schedule External Appt Specialty Diagnoses / Procedures Referred By Contac t Referred To Contact Orthotics Diagnoses Cerebral palsy Yas Ramirez MD [facility] [place] [address] Referral ID Status Reason Start Date Expiration Date Visits Requested Visits Authorized [id number] Complete - Patient Will Schedule External Appt Assume Subset of Care 09/30/2010 03/29/2011 1 1 Reason for Visit * Reason Comments Developmental Delay serial casting Encounter Details Date Type Department Care Team (Late st Contact Info) Description 09/30/2010 9:00 AM EDT Follow-Up Orthopaedics at [facility] [place] [address] Yas Rmairez MD [facility] DR [place] [address] Cerebral palsy (Primary Dx) Discharge Disposition: Home [...] encounter Miscellaneous Notes * Miscellaneous - [employer] Or Leak Gang Laborer - 10/31/2010 9:10 AM EDT documented in this encounter Plan of Treatment Upcoming Encounters Date Type Department Care Team (Late st Contact Info) Description 06/02/2024 12:30 PM EST Office [place] [address] Hollie Ambriz MD [facility] DR INFECTIOUS DISEASE [place] [id number] Scheduled Referrals Name Type Priority Associated Diagnoses Orde r Schedule REFERRAL FOR ORTHOTICS Outpatient Referral Routine Cerebral palsy Ordered: 09/30/2010 REFERRAL FOR ORTHOTICS Outpatient Referral Routine Cerebral palsy Ordered: 09/30/2010 documented as of this encounter Visit Diagnoses Diagnosis Cerebral palsy- Primary Infantile cerebral palsy, unspecified documented in this encounter Care Teams Former Hand Relationship Specialty Start Date End Date Naina Lindsey MD [address] [place] [address] PCP - General 03/19/10 08/25/16 documented as of this encounter
--- OUTSIDE RECORDS SUMMARY | 2023-12-04 12:43 | XMS_ITS | Encounter Summary ---
[place] [address] Care Team Providers Care Baking Factory Worker Name Role Phone Naina Lindsey MD Primary Care Provider [phone] Reason for Visit * Reason Onset Date Comments Other 03/14/2011 Encounter Details Date Type Department Care Team (Late st Contact Info) Description 03/14/2011 Telephone [place] [address] Mony Fierro RN Other Social History Tobacco [...] this also with Bart Denis PT from [place] [facility] who has been unable to find a creative way to avoid this with her seating. Discussed with Dr. Ramirez who will evaluate at her appointment on 03/31. documented in this encounter Plan of Treatment Upcoming Encounters Date Type Department Care Team (Late st Contact Info) Description 06/02/2024 12:30 PM EST Office Visit [place] [address] [facility] [place] [address] documented as of this encounter Visit Diagnoses Not on filedocumented in this encounter Care Teams Baking Factory Worker Relationship Specialty Start Date End Date Naina Lindsey MD [address] [place] [address] [place] [address] PCP - General 03/19/10 08/25/16 documented as of this encounter
--- OUTSIDE RECORDS SUMMARY | 2023-12-04 12:43 | XMS_ITS | Encounter Summary ---
Author Organization [facility] Benjamin [facility] [place] [address] Care Team Providers Care Merchandising Assistant Name Role Phone Naina Lindsey MD Primary Care Provider [phone] Encounter Details Date Type Department Care Team (Late st Contact Info) Description 07/08/2012 Orders [place] [address] Bigg Dunbar MD [facility] [place] [address] Spasticity (Primary Dx) Social History Tobacco Use [...] Office [place] [address] Hollie Ambriz MD [facility] [place] [address] documented as of this encounter Visit Diagnoses Diagnosis Spasticity- Primary Abnormal involuntary movements documented in this encounter Care Teams Merchandising Assistant Relationship Specialty Start Date End Date Naina Lindsey MD [address] [place] [address] [place] [address] PCP - General 03/19/10 08/25/16 documented as of this encounter
--- OUTSIDE RECORDS SUMMARY | 2023-12-04 12:43 | XMS_ITS | Encounter Summary ---
Author Organization [facility] [place] [address] Care Team Providers Care Natural History Collections Curator Name Role Phone Naina Lindsey MD Primary Care Provider [phone] Reason for Visit * Reason Comments Cerebral Palsy Encounter Details Date Type Department Care Team (Late st Contact Info) Description 09/05/2010 1:00 PM EDT [place] [address] CLINIC, DR [facility] Muscle spasticity (Primary Dx) [...] PM EST Office [place] [address] Hollie Ambriz MD [facility] [place] [address] documented as of this encounter Visit Diagnoses Diagnosis Muscle spasticity- Primary Spasm of muscle documented in this encounter Care Teams Natural History Collections Curator Relationship Specialty Start Date End Date Naina Lindsey MD [address] [place] [address] PCP - General 03/19/10 08/25/16 documented as of this encounter
--- OUTSIDE RECORDS SUMMARY | 2023-12-04 12:43 | XMS_ITS | Encounter Summary ---
Author Organization [facility] [place] [address] Care Team Providers Care Labor Training Manager Name Role Phone Naina Lindsey MD Primary Care Provider [phone] Encounter Details Date Type Department Care Team (Late st Contact Info) Description 07/20/2012 Orders [place] [phone] Bigg Dunbar MD [facility] [place] [address] Social History Tobacco Use Types Packs/Day Years [...] PM EST Office Visit [place] [phone] Hollie Ambriz MD [facility] DR INFECTIOUS DISEASE [place], [place] [phone] documented as of this encounter Visit Diagnoses Not on filedocumented in this encounter Care Teams Labor Training Manager Relationship Specialty Start Date End Date Naina Lindsey MD [address] [place] [address] PCP - General 03/19/10 08/25/16 documented as of this encounter
--- OUTSIDE RECORDS SUMMARY | 2023-12-04 12:43 | XMS_ITS | Encounter Summary ---
Author Organization [facility] Benjamin [facility] [place] [place] [address] Care Team Providers Care Information Writer Name Role Phone Naina Lindsey MD Primary Care Provider [phone] Encounter Details Date Type Department Care Team (Late st Contact Info) Description 12/21/2013 1:30 PM EDT Ancillary Procedure [place] [phone] Chuckie Mayfield MD [facility] [place] [address] Social History Tobacco Use Types Packs/Day Years [...] PM EST Office Visit [place] [phone] Hollie Ambriz MD [facility] [place] [address] documented as of this encounter Procedures Procedure Name Priority Date/Time Associated Diagnosis Comments FILM LIBRARY STORAGE ONLY DX UPPER EXTREMITY Routine 12/21/2013 1:30 PM EDT documented in this encounter Results * Film Library- Storage Only DX Upper Extremity (12/21/2013 1:30 PM EDT) 08/10/2023 3:14 PM EDT Narrative [facility] - 08/10/2023 3:14 PM EDT This exam is auto-finalizing. It's purpose is for storage only. Chuckie Mayfield MD IMG FILM LIBRARY ORD ERABLES [place], [place] documented in this encounter Visit Diagnoses Not on filedocumented in this encounter Care Teams Information Writer Relationship Specialty Start Date End Date Naina Lindsey MD [address] [place] [address] PCP - General 03/19/10 08/25/16 documented as of this encounter
--- OUTSIDE RECORDS SUMMARY | 2023-12-04 12:43 | XMS_ITS | Encounter Summary ---
Author Organization [facility] [place] [address] Care Team Providers Care Mapping Specialist Name Role Phone Naina Lindsey MD Primary Care Provider [phone] Encounter Details Date Type Department Care Team (Late st Contact Info) Description 11/18/2010 Abstract [place] [address]1000 Jessica López, RN Social History Tobacco Use [...] PM EST Office [place] [phone] Hollie Ambriz MD [facility] [address] [place] [address] documented as of this encounter Visit Diagnoses Not on filedocumented in this encounter Care Teams Mapping Specialist Relationship Specialty Start Date End Date Naina Lindsey MD [address] [place] [address] [place] [address] PCP - General 03/19/10 08/25/16 documented as of this encounter
--- OUTSIDE RECORDS SUMMARY | 2023-12-04 12:43 | XMS_ITS | Encounter Summary ---
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 Marino Fisher Hoop Net: Chelsea Alva Reason for Reprogramming or Adjustment: Refill Rate Adjustment: No Diagnosis: Spasticity Concomitant Medical Problems: Telemetry Pre-programming Reading: Drug: Baclofen Concentration: 1000 mcg/ml Dose Delivery per day: 195.1 mcg/day Infusion Mode: simple continuous Telemetry Post-programming Reading: Drug: Baclofen Concentration: 1000 mcg/ml (RX #[id number], discard date 08/28/12) Dose Delivery per day: 195.1 mcg/day Infusion Mode: simple continuous Pump Capacity: [] 20 ml [xxx] 40 ml Expected [place] Volume this visit: 2.6 ml Actual [place] Volume this visit: 3.5 ml Medication or [...] drapes were applied as provided with the [employer] refill kit. A 22 gauge Persaud non-coring [...] instilled into the pump according to the automotive parts advisor's directions without difficulty. There was no evidence [...] PM EST Office [place] [address] Hollie Ambriz MD [facility] [place] [address] documented as of this encounter Procedures Procedure [...] Intrathecal Pump Reprogramming or Adjustment Tana Cavazos [id number] Date of Programming/Adjustment: 07/22/12 Primary Ballistics Professor: ??Dr. Marino Fisher Hoop Net: ??Chelsea Alva Reason for Reprogramming or Adjustment: Refill Rate Adjustment: No Diagnosis: Spasticity Concomitant Medical Problems: ?? Telemetry Pre-programming Reading: ?? Drug: Baclofen Concentration: 1000 mcg/ml Dose Delivery per day: 195.1 mcg/day Infusion Mode: ?? simple continuous ?? Telemetry Post-programming Reading: ?? Drug: Baclofen Concentration: 1000 mcg/ml (RX #[id number], discard date 08/28/12) Dose Delivery per day: 195.1 mcg/day Infusion Mode: ?? simple continuous ? Pump Capacity: [] 20 ml [xxx] 40 ml Expected [place] Volume this visit: 2.6 ml Actual [place] Volume this visit: 3.5 ml Medication or [...] drapes were applied as provided with the [employer] refill kit. A 22 gauge [place]aud non-coring [...] instilled into the pump according to the automotive parts advisor's directions without difficulty. There was no evidence [...] Intrathecal Pump Reprogramming or Adjustment Tana Cavazos [id number] Date of Programming/Adjustment: 07/22/12 Primary Ballistics Professor: Dr. Marino Fisher Hoop Net: Chelsea Alva Reason for Reprogramming or Adjustment: Refill Rate Adjustment: No Diagnosis: Spasticity Concomitant Medical Problems: Telemetry Pre-programming Reading: Drug: Baclofen Concentration: 1000 mcg/ml Dose Delivery per day: 195.1 mcg/day Infusion Mode: simple continuous Telemetry Post-programming Reading: Drug: Baclofen Concentration: 1000 mcg/ml (RX #[id number], discard date 08/28/12) Dose Delivery per day: 195.1 mcg/day Infusion Mode: simple continuous Pump Capacity: [] 20 ml [xxx] 40 ml Expected [place] Volume this visit: 2.6 ml Actual [place] Volume this visit: 3.5 ml Medication or [...] Sterile drapes were applied as provided withthe [employer] refill kit. A 22 gauge Persaud non-coring [...] Baclofen 1000 mcg/ml - 40 ml - RX#[id number] Given 07/22/2012 9:33 AM EDT 1 each documented in this encounter Care Teams Electrician'S Helper Relationship Specialty Start Date End Date Naina Lindsey MD [address] [place] [address] PCP - General 03/19/10 08/25/16 documented as of this encounter
--- OUTSIDE RECORDS SUMMARY | 2023-12-04 12:43 | XMS_ITS | Encounter Summary ---
Author Organization [facility] [place] [address] Care Team Providers Care Bobtail Driver Name Role Phone Lorna Bal APRN Primary Care Provider [phone] Encounter Details Date Type Department Care Team (Late st Contact Info) Description 12/21/2013 Interpretation Only [place] [phone] Chuckie Mayfield MD [facility] [place] [address] Social History Tobacco Use Types Packs/Day Years [...] PM EST Office [place] [address] Hollie Ambriz MD [facility] [place] [address] documented as of this encounter Procedures Procedure Name Priority Date/Time Associated Diagnosis Comments FILM LIBRARY STORAGE ONLY DX WRIST Routine 12/21/2013 1:40 PM EDT documented in this encounter Results * Film Library- Storage Only DX Wrist (12/21/2013 1:40 PM EDT) 08/10/2023 3:14 PM EDT Narrative [facility] - 08/10/2023 3:14 PM EDT This exam is auto-finalizing. It's purpose is for storage only. Chuckie Mayfield MD IMG FILM LIBRARY ORD ERABLES [place], [place] documented in this encounter Visit Diagnoses [...] documented as of this encounter Care Teams Bobtail Driver Relationship Specialty Start Date End Date Lorna Bal APRN [address] [place] [address] PCP - General Family Medicine 05/27/18 documented as of this encounter
--- OUTSIDE RECORDS SUMMARY | 2023-12-04 12:43 | XMS_ITS | Encounter Summary ---
Author Organization [facility] Address [facility] [place] [address] Care Team Providers Care Half Backer Name Role Phone Naina Lindsey MD Primary Care Provider [phone] Encounter Details Date Type Department Care Team (Latest Contact Info) Description 12/16/2011 12:15 PM EDT - 12/16/2011 11:59 PM EDT Hospital Encounter XRay at [address] [place] [address] CLINIC, Joesph Sheikh Jr., MD [facility] [place] [address] Aquiles Smith MD [facility] [place] [place] [address] Scoliosis Discharge Disposition: Home Social History Tobacco [...] PM EST Office [place] [address] Hollie Ambriz MD [facility] [place] [address] documented as of this encounter Procedures Procedure [...] idiopathic documented in this encounter Care Teams Half Backer Relationship Specialty Start Date End Date Naina Lindsey MD [address] [place] [address] [place] [address] PCP - General 03/19/10 08/25/16 documented as of this encounter
--- OUTSIDE RECORDS SUMMARY | 2023-12-04 12:43 | XMS_ITS | Encounter Summary ---
Author Organization [facility] [place] [address] Care Team Providers Care Manager Photo Name Role Phone Naina Lindsey MD Primary Care Provider [phone] Reason for Referral * Consultation (Routine) - Closed Specialty Diagnoses / Procedures Referred By Contac t Referred To Contact Pain Management Diagnoses Scoliosis Jamar Dodd III, MD [facility] [place] [address] [facility] [address] [place] [address] Referral ID Status Reason Start Date Expiration Date V isits Requested Visits Authorized [id number] Closed Consult Only 12/16/2011 06/13/2012 1 1 * Consultation (Routine) - Complete - Unable to Contact Patient Specialty Diagnoses / Procedures Referred By Contac t Referred To Contact Pediatrics Diagnoses Scoliosis pre operative evaluation and to establish contact for future [place] [facility] Jamar Whiting III, MD [facility] [place] [address] [facility] [address] [place] [phone] Referral ID Status Reason Start Date Expiration Date Visits Requested Visits Authorized [id number] Complete - Unable to Contact Patient Consult Only 12/16/2011 06/13/2012 1 1 * Surgical (Routine) - Closed by system - Referral Specialty Diagnoses / Procedures Referred By Contac t Referred To Contact Anesthesiology Diagnoses Scoliosis Aquiles Smith MD [facility] [place] [id number] [place] [address] Referral ID Status Reason Start Date Expiration Date Visits Requested Visits Authorized [id number] Closed by system - Referral Consult, Test & Treat 12/16/2011 06/13/2012 1 1 Reason for Visit * Reason Comments Follow Up Surgery Bilat. Hip DOS 2010 Encounter Details Date Type Department Care Team (Late st Contact Info) Description 12/16/2011 1:30 PM EDT Office Visit Orthopaedics at [place] [phone] Aquiles Smith MD [facility] [place] [address] Scoliosis (Primary Dx) Discharge Disposition: Home Social [...] PM EST Office [place] [address] Hollie Ambriz MD [facility] [place] [address] Scheduled Referrals Name Type Priority Associated Diagnoses Order Schedule REFERRAL TO GENERAL ANESTHESIOLOGY Outpatient Referral Routine Scoliosis Ordered: 12/16/2011 REFERRAL TO PEDIATRICS Outpatient Referral Routine Scoliosis Ordered: 12/16/2011 REFERRAL TO PAIN CLINIC Outpatient Referral Routine Scoliosis Ordered: 12/16/2011 documented as of this encounter Visit Diagnoses Diagnosis Scoliosis- Primary Scoliosis (and kyphoscoliosis), idiopathic documented in this encounter Care Teams Manager Photo Relationship Specialty Start Date End Date Naina Lindsey MD [address] [place] [address] PCP - General 03/19/10 08/25/16 documented as of this encounter
--- OUTSIDE RECORDS SUMMARY | 2023-12-04 12:43 | XMS_ITS | Encounter Summary ---
Author Organization [facility] [place] [address] Care Team Providers Care Panel Gluer Name Role Phone Naina Lindsey MD Primary Care Provider [phone] Reason for Visit * Reason Onset Date Comments Blindness 12/27/2011 Encounter Details Date Type Department Care Team (Late st Contact Info) Description 12/27/2011 Telephone [place] [address] Aquiles Smith MD [facility] [place] [address] Blindness Social History Tobacco Use Types Packs/Day [...] PM EST Office [place] [address] Hollie Ambriz MD [facility] [place] [address] documented as of this encounter Visit Diagnoses Not on filedocumented in this encounter Care Teams Panel Gluer Relationship Specialty Start Date End Date Naina Lindsey MD [address] [place] [address] [place] [address] PCP - General 03/19/10 08/25/16 documented as of this encounter
--- OUTSIDE RECORDS SUMMARY | 2023-12-04 12:43 | XMS_ITS | Encounter Summary ---
Author Organization [facility] [place] [place] [address] Care Team Providers Care Foundation Drill Operator Helper Name Role Phone Naina Lindsey MD Primary Care Provider [phone] Reason for Visit * Reason Comments Pain Encounter Details Date Type Department Care Team (Latest Contact Info) Description 02/15/2014 4:45 PM EDT Procedure [place] [address] Donnell Dotson MD [facility] [place] [address] Spasticity; Abnormal involuntary movements(501.0) Discharge Disposition: Home Social History Tobacco Use [...] PM EST Office [place] [address] Hollie Ambriz MD [facility] [place] [address] documented as of this encounter Procedures Procedure [...] movements documented in this encounter Care Teams Foundation Drill Operator Helper Relationship Specialty Start Date End Date Naina Lindsey MD [address] [place] [address] PCP - General 03/19/10 08/25/16 documented as of this encounter
--- OUTSIDE RECORDS SUMMARY | 2023-12-04 12:43 | XMS_ITS | Encounter Summary ---
Author Organization [facility] Address [facility] Benjamin [place] [address] Care Team Providers Care Interceptor Operator Name Role Phone Naina Lindsey MD Primary Care Provider Reason for Visit * Reason Comments Foot Swelling Encounter Details Date Type Department Care Team (Late st Contact Info) Description 11/04/2010 3:05 PM EDT [place] [address] Barrera Oliver MD [facility] DR [place] [address] Acquired dysplasia of hip, bilateral; Edema leg; [...] will be constituted in a cast and residential appliance repair technician with whom I spoke did not [...] PM EST Office [place] [address] Hollie Ambriz MD [facility] [place] [address] documented as of this encounter Results * Duplex for DVT, Leg, Unilat (11/04/2010 3:55 PM EDT) VB Text Report Department: Vascular Surgery Lab Patient: [id number] (TANA SHELTON) CPT Code: 83460 ICD-9: 729.81 Referring Physician: BARRERA OLIVER Indication: [...] consciousness documented in this encounter Care Teams Interceptor Operator Relationship Specialty Start Date End Date Naina Lindsey MD [address] [place] [address] PCP - General 03/19/10 08/25/16 documented as of this encounter
--- OUTSIDE RECORDS SUMMARY | 2023-12-04 12:43 | XMS_ITS | Encounter Summary ---
Author Organization [facility] [place] [address] Care Team Providers Care Stenciler Name Role Phone Naina Lindsey MD Primary Care Provider [phone] Encounter Details Date Type Department Care Team (Late st Contact Info) Description 11/07/2010 Orders Only [place] [address] Bigg Dunbar MD [facility] [place] [address] Spasticity (Primary Dx) Social History Tobacco Use [...] PM EST Office Visit [place] [address] Hollie Ambriz MD [facility] [place] [address] documented as of this encounter Visit Diagnoses Diagnosis Spasticity- Primary Abnormal involuntary movements documented in this encounter Care Teams Stenciler Relationship Specialty Start Date End Date Naina Lindsey MD [address] [place] [address] PCP - General 03/19/10 08/25/16 documented as of this encounter
--- OUTSIDE RECORDS SUMMARY | 2023-12-04 12:43 | XMS_ITS | Encounter Summary ---
Author Organization [facility] [place] [address] Care Team Providers Care Managed Care Director Name Role Phone Naina Lindsey MD Primary Care Provider [phone] Encounter Details Date Type Department Care Team (Late st Contact Info) Description 06/16/2013 Orders Only [place] [address] Christiano Floyd MD [facility] [place] [address] Social History Tobacco Use Types Packs/Day Years [...] PM EST Office Visit [place] [address] Hollie Ambriz MD [facility] [place] [address] documented as of this encounter Visit Diagnoses Not on filedocumented in this encounter Care Teams Managed Care Director Relationship Specialty Start Date End Date Naina Lindsey MD [address] [place] [address] [place] [address] PCP - General 03/19/10 08/25/16 documented as of this encounter
--- OUTSIDE RECORDS SUMMARY | 2023-12-04 12:43 | XMS_ITS | Encounter Summary ---
Author Organization [facility] [place] [address] Care Team Providers Care Tool Dresser Name Role Phone Naina Lindsey MD Primary Care Provider [phone] Reason for Visit * Reason Onset Date Comments Medication Refill 11/08/2013 Encounter Details Date Type Department Care Team (Late st Contact Info) Description 11/08/2013 Refill [place] [address] Aida Carey, CRIME SCENE INVESTIGATOR Social History Tobacco Use Types Packs/Day Years [...] PM EST Office [place] [address] Hollie Ambriz MD [facility] [place] [address] documented as of this encounter Visit Diagnoses Not on filedocumented in this encounter Care Teams Tool Dresser Relationship Specialty Start Date End Date Naina Lindsey MD [address] [place] [address] PCP - General 03/19/10 08/25/16 documented as of this encounter
--- OUTSIDE RECORDS SUMMARY | 2023-12-04 12:43 | XMS_ITS | Encounter Summary ---
Author Organization [facility] [place] [address] Care Team Providers Care Nut Tapper Name Role Phone Naina Lindsey MD Primary Care Provider [phone] Encounter Details Date Type Department Care Team (Latest Contact Info) Description 01/12/2012 11:15 AM EDT Procedure [place] [address] Bigg Dunbar MD [facility] [place] [address] Abnormal involuntary movements (Primary Dx) Discharge Disposition: [...] Pump Reprogramming or Adjustment Tana S Dirk [id number] Date of Programming/Adjustment: January 12, 2012 Primary Dispatcher Maintenance: Dr. Lara Chocolate Maker: Dr. Dunbar Reason for Reprogramming or Adjustment: Refill Rate Adjustment: No Diagnosis: Spasticity Concomitant Medical Problems: Telemetry Pre-programming Reading: Drug: Baclofen Concentration: 1000 mcg/ml Dose Delivery per day: 195.1 mcg/day Infusion Mode: simple continuous Telemetry Post-programming Reading: Drug: Baclofen Concentration: 1000 mcg/ml Dose Delivery per day: 195.1 mcg/day Infusion Mode: simple continuous Pump Capacity: [] 20 ml [xxx] 40 ml Expected [place] Volume this visit: 4 ml Actual [place] Volume this visit: 5 ml Medication or [...] instilled into the pump according to the e learning developer's directions without difficulty. There was no [...] Farhana Lara MD Fellow, Pain Medicine Pager [phone] documented in this encounter Miscellaneous Notes * Miscellaneous - Delbert, Scale Adjuster - 01/15/2012 4:53 PM EDT documented in this encounter Plan of Treatment Upcoming Encounters Date Type Department Care Team (Late st Contact Info) Description 06/02/2024 12:30 PM EST Office Visit Infectious Disease at [facility] [place] [address] Hollie Ambriz MD [facility] [place] [address] documented as of this encounter Procedures Procedure Name Priority Date/Time Associated Diagnosis Comments INTRATHECAL PUMP REFILL Routine 01/12/2012 12:44 PM EDT Abnormal involuntary movements documented in this encounter Results * INTRATHECAL PUMP REFILL (01/12/2012 12:44 PM EDT) Narrative Farhana Lara - 01/12/2012 12:44 PM EDT Pain Medicine Intrathecal Pump Reprogramming or Adjustment Tana Cavazos [id number] Date of Programming/Adjustment: January 12, 2012 Primary Dispatcher Maintenance: ??Dr. Lara ?? Chocolate Maker: ??Dr. Dunbar Reason for Reprogramming or Adjustment: [...] [] 20 ml [xxx] 40 ml Expected [place] Volume this visit: 4 ml Actual [place] Volume this visit: 5 ml Medication or [...] drapes were applied as provided with the [employer] refill kit. A 22 gauge Persaud [...] instilled into the pump according to the e learning developer's directions without difficulty. There was no [...] Farhana Lara MD Fellow, Pain Medicine Pager [phone] Procedure Note Farhana Lara - 01/12/2012 12:43 PM EDT Pain Medicine Intrathecal Pump Reprogramming or Adjustment Tana Hayes Dirk [id number] Date of Programming/Adjustment: January 12, 2012 Primary Dispatcher Maintenance: Dr. Lara Chocolate Maker: Dr. Dunbar Reason for Reprogramming or Adjustment: Refill Rate Adjustment: No Diagnosis: Spasticity Concomitant Medical Problems: Telemetry Pre-programming Reading: Drug: Baclofen Concentration: 1000 mcg/ml Dose Delivery per day: 195.1 mcg/day Infusion Mode: simple continuous Telemetry Post-programming Reading: Drug: Baclofen Concentration: 1000 mcg/ml Dose Delivery per day: 195.1 mcg/day Infusion Mode: simple continuous Pump Capacity: [] 20 ml [xxx] 40 ml Expected [place] Volume this visit: 4 ml Actual [place] Volume this visit: 5 ml Medication or [...] Sterile drapes were applied as provided withthe [employer] refill kit. A 22 gauge Persaud [...] was instilled into the pump according to barbanufbinduurer's directions without difficulty. There was no evidence [...] Farhana Lara MD Fellow, Pain Medicine Pager [phone] Bigg Dunbar MD PROCEDURE/MINOR S URGICAL ORDERABLES documented in this encounter Visit Diagnoses Diagnosis Abnormal involuntary movements(781.0)- Primary Abnormal involuntary movements documented in this encounter Administered Medications Inactive Administered Medications - up to 3 most recent administrations Medication Order MAR Action Action Date Dose Rate Site pain clinic compounded medication 1 each 1 each, Intrathecal, ONCE, 1 dose, On 01/12/12 at 1300, Routine, Medication Name and Dose: Baclofen 1000 mcg/ml solution Lot [id number] Given 01/12/2012 12:38 PM EDT 1 each documented in this encounter Care Teams Nut Tapper Relationship Specialty Start Date End Date Naina Lindsey MD [address] [place] [address] PCP - General 03/19/10 08/25/16 documented as of this encounter
--- OUTSIDE RECORDS SUMMARY | 2023-12-04 12:43 | XMS_ITS | Encounter Summary ---
Author Organization [facility] [place] [address] Care Team Providers Care Car Body Mechanic Name Role Phone Naina Lindsey MD Primary Care Provider [phone] Reason for Visit * Reason Onset Date Comments Other 11/11/2010 WANTED NOTES FRO M SURG Encounter Details Date Type Department Care Team (Late st Contact Info) Description 11/11/2010 Telephone [place] [phone] Yas Ramirez MD [facility] [place] [address] Other (WANTED NOTES FROM SURG) Social History [...] PM EST Office Visit [place] [address] Hollie Ambriz MD [facility] [place] [address] documented as of this encounter Visit Diagnoses Not on filedocumented in this encounter Care Teams Car Body Mechanic Relationship Specialty Start Date End Date Naina Lindsey MD [address] [place] [address] [place] [address] PCP - General 03/19/10 08/25/16 documented as of this encounter
--- OUTSIDE RECORDS SUMMARY | 2023-12-04 12:43 | XMS_ITS | Encounter Summary ---
Author Organization [facility] [place] [address] Care Team Providers Care Card Assembler Name Role Phone Naina Lindsey MD Primary Care Provider [phone] Encounter Details Date Type Department Care Team (Late st Contact Info) Description 01/05/2012 Orders [place] [address] Christiano Floyd MD [facility] [address] Spasticity (Primary Dx) Social History [...] PM EST Office [place] [address] Hollie Ambriz MD [facility] [place] [address] documented as of this encounter Visit Diagnoses Diagnosis Spasticity- Primary Abnormal involuntary movements documented in this encounter Care Teams Card Assembler Relationship Specialty Start Date End Date Naina Lindsey MD [address] [place] [address] [place] [address] PCP - General 03/19/10 08/25/16 documented as of this encounter
--- OUTSIDE RECORDS SUMMARY | 2023-12-04 12:43 | XMS_ITS | Encounter Summary ---
Author Organization [facility] Benjamin [facility] [place] [address] Care Team Providers Care Web Offset Press Feeder Name Role Phone Naina Lindsey MD Primary Care Provider [phone] Reason for Visit * Reason Comments Pain Management Encounter Details Date Type Department Care Team (Latest Contact Info) Description 02/28/2014 4:30 PM EST Procedure [place] [address] Donnell Dotson MD [facility] [place] [address] Karen Early [facility] [place] [address] Traumatic brain injury, sequela (Primary Dx) Discharge [...] 02/28/2014 4:58 PM EST Tana Cavazos 02/28/2014 [id number] Intrathecal Pump Visit Tana Cavazos presents today [...] PM EST Office Visit [place] [address] Hollie Ambriz MD [facility] [place] [address] documented as of this encounter Visit Diagnoses Diagnosis Traumatic brain injury, sequela- Primary documented in this encounter Care Teams Web Offset Press Feeder Relationship Specialty Start Date End Date Naina Lindsey MD [address] [place] [address] [place] [address] PCP - General 03/19/10 08/25/16 documented as of this encounter
--- OUTSIDE RECORDS SUMMARY | 2023-12-04 12:43 | XMS_ITS | Encounter Summary ---
Author Organization [facility] [place] [address] Care Team Providers Care Parts Delivery Driver Name Role Phone Naina Lindsey MD Primary Care Provider [phone] Encounter Details Date Type Department Care Team (Late st Contact Info) Description 07/08/2012 Orders [place] [address] Aniket Heredia MD [facility] [place] [address] Spasticity (Primary Dx) Social History [...] PM EST Office [place] [address] Hollie Ambriz MD [facility] [place] [address] documented as of this encounter Visit Diagnoses Diagnosis Spasticity- Primary Abnormal involuntary movements documented in this encounter Care Teams Parts Delivery Driver Relationship Specialty Start Date End Date Naina Lindsey MD [address] [place] [address] PCP - General 03/19/10 08/25/16 documented as of this encounter
--- OUTSIDE RECORDS SUMMARY | 2023-12-04 12:43 | XMS_ITS | Encounter Summary ---
Author Organization [facility] [place] [address] Care Team Providers Care Bus Trolley And Taxi Instructor Name Role Phone Naina Lindsey MD Primary Care Provider Reason for Visit * Reason Comments Cerebral Palsy Encounter Details Date Type Department Care Team (Latest Contact Info) Description 07/11/2011 8:30 AM EDT Procedure [place] [address] Yudelka Coyne MD [facility] [place] [address] Spasticity (Primary Dx); Abnormal involuntary movements Discharge [...] provided the care. Christiana Woods DO [facility] [place] [address] Dept: [phone] * Yudelka Coyne MD - 07/11/2011 10:56 AM EDT INTRATHECAL PUMP REFILL PROCEDURE NOTE WITH REPROGRAMMING Primary Scarrer: Dr. Steffany Coyne Outside Physical Damage Appraiser: Lucia Mazariegos LPN Reason for Reprogramming: refill [...] different? no Empty syringe concentration verified by frickertron checker: no If concentration of drug is [...] drapes were applied as provided with the [employer] refill kit. A 22 gauge Persaud non-coring [...] instilled into the pump according to the occupational therapy assist's directions without difficulty. There was no evidence [...] Notes * Miscellaneous - Suzi Mandujano - 07/15/2011 4:12 PM EDT documented in this encounter Plan of Treatment Upcoming Encounters Date Type Department Care Team (Late st Contact Info) Description 06/02/2024 12:30 PM EST Office Visit [place] [address] Hollie Ambriz MD [facility] [place] [address] Scheduled Orders Name Type Priority Associated Diagnoses [...] each documented in this encounter Care Teams Bus Trolley And Taxi Instructor Relationship Specialty Start Date End Date Naina Lindsey MD [address] [place] [address] PCP - General 03/19/10 08/25/16 documented as of this encounter
--- OUTSIDE RECORDS SUMMARY | 2023-12-04 12:43 | XMS_ITS | Encounter Summary ---
Author Organization [facility] [place] [address] Care Team Providers Care Flush Tester Name Role Phone Naina Lindsey MD Primary Care Provider [phone] Reason for Visit * Reason Comments Spasms Encounter Details Date Type Department Care Team (Late st Contact Info) Description 11/20/2010 12:45 PM EDT Follow-Up [place] [address] Christiano Floyd MD [facility] [place] [place] [address] Spastic quadriplegia (Primary Dx) Discharge Disposition: Home [...] 11/20/2010 1:2 7 PM EDT Growth Chart: [facility] (Girls, 2- 20 Years) documented in this encounter Progress Notes * Gaby Silva - 11/20/2010 3:00 PM EDT Pain Management Center Refill of Intrathecal Pump with Reprogramming Procedure Note Tana Robles Cavazos [id number] Date of Refill: 11/20/10 Primary Director Of Individual Giving: Dr. Silva Director Of Student Financial Services: Dr. Floyd Reason for Reprogramming: Refill Diagnosis: [...] instilled into the pump according to the sap basis architect's directions without difficulty. There was no evidence of over pressurization at the conclusion of the filling process. The Persuad needle was withdrawn and a bandaid was [...] PM EST Office [place] [address] Hollie Ambriz MD [facility] [place] [address] documented as of this encounter Visit Diagnoses Diagnosis Spastic quadriplegia- Primary Quadriplegia, unspecified documented in this encounter Care Teams Flush Tester Relationship Specialty Start Date End Date Naina Lindsey MD [address] [place] [address] PCP - General 03/19/10 08/25/16 documented as of this encounter
--- OUTSIDE RECORDS SUMMARY | 2023-12-04 12:43 | XMS_ITS | Encounter Summary ---
Author Organization [facility] [place] [address] Care Team Providers Care Enrolled Agent Name Role Phone Naina Lindsey MD Primary Care Provider [phone] Encounter Details Date Type Department Care Team (Late st Contact Info) Description 09/27/2010 [place] [address] Yas Ramirez MD [facility] DR ORTHOPAEDIC [place] [address] Muscle spasticity; Acquired dysplasia of hip, bilateral; [...] PM EST Office [place] [address] Hollie Ambriz MD [facility] DR [place] [address] documented as of this encounter Visit Diagnoses Diagnosis Muscle spasticity Spasm of muscle Acquired dysplasia of hip, bilateral Other acquired deformities of hip 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
--- OUTSIDE RECORDS SUMMARY | 2023-12-04 12:43 | XMS_ITS | Encounter Summary ---
Author Organization [facility] [place] [address] Care Team Providers Care Bowling Or Skating Front Desk Clerk Name Role Phone Lorna Bal APRN Primary Care Provider [phone] Encounter Details Date Type Department Care Team (Late st Contact Info) Description 12/21/2013 Interpretation Only [place] [address] Chuckie Mayfield MD [facility] [place] [address] Social History Tobacco Use Types Packs/Day Years [...] PM EST Office [place] [address] Hollie Ambriz MD [facility] [place] [address] documented as of this encounter Procedures Procedure Name Priority Date/Time Associated Diagnosis Comments FILM LIBRARY STORAGE ONLY DX UPPER EXTREMITY Routine 12/21/2013 1:30 PM EDT documented in this encounter Results * Film Library- Storage Only DX Upper Extremity (12/21/2013 1:30 PM EDT) 08/10/2023 3:14 PM EDT Narrative [facility] - 08/10/2023 3:14 PM EDT This exam is auto-finalizing. It's purpose is for storage only. Chuckie Mayfield MD IMG FILM LIBRARY ORD ERABLES [place], [place] documented in this encounter Visit Diagnoses [...] documented as of this encounter Care Teams Bowling Or Skating Front Desk Clerk Relationship Specialty Start Date End Date Lorna Bal APRN [address] [place] [address] PCP - General Family Medicine 05/27/18 documented as of this encounter
--- OUTSIDE RECORDS SUMMARY | 2023-12-04 12:43 | XMS_ITS | Encounter Summary ---
Author Organization [facility] [place] [address] Care Team Providers Care Airplane Captain Name Role Phone Naina Lindsey MD Primary Care Provider [phone] Reason for Visit * Reason Comments Bilateral Leg Pain CP Encounter Details Date Type Department Care Team (Late st Contact Info) Description 05/19/2011 10:40 AM EST [place] [phone] Yas Ramirez MD [facility] [place] [address] TBI (traumatic brain injury) (Primary Dx); Scoliosis; [...] PM EST Office [place] [address] Hollie Ambriz MD [facility] [place] [address] documented as of this encounter Results * [...] idiopathic documented in this encounter Care Teams Airplane Captain Relationship Specialty Start Date End Date Naina Lindsey MD [address] [place] [address] PCP - General 03/19/10 08/25/16 documented as of this encounter
--- OUTSIDE RECORDS SUMMARY | 2023-12-04 12:43 | XMS_ITS | Encounter Summary ---
Author Organization [facility] [place] [address] Care Team Providers Care Expansion Joint Finisher Name Role Phone Naina Lindsey MD Primary Care Provider [phone] Encounter Details Date Type Department Care Team (Late st Contact Info) Description 12/21/2013 1:40 PM EDT Ancillary Procedure [place] [address] [facility] [place] [address] Social History Tobacco Use Types Packs/Day Years [...] PM EST Office Visit [place] [address] [facility] [place] [address] documented as of this encounter Procedures Procedure Name Priority Date/Time Associated Diagnosis Comments FILM LIBRARY STORAGE ONLY DX WRIST Routine 12/21/2013 1:40 PM EDT documented in this encounter Results * Film Library- Storage Only DX Wrist (12/21/2013 1:40 PM EDT) 08/10/2023 3:14 PM EDT Narrative [facility] - 08/10/2023 3:14 PM EDT This exam is auto-finalizing. It's purpose is for storage only. Chuckie Mayfield MD IMG FILM LIBRARY ORD ERABLES [place], [place] documented in this encounter Visit Diagnoses Not on filedocumented in this encounter Care Teams Expansion Joint Finisher Relationship Specialty Start Date End Date Naina Lindsey MD [address] [place] [address] PCP - General 03/19/10 08/25/16 documented as of this encounter
--- OUTSIDE RECORDS SUMMARY | 2023-12-04 12:43 | XMS_ITS | Encounter Summary ---
[place] [address] Care Team Providers Care Steak Sauce Maker Name Role Phone Naina Lindsey MD Primary Care Provider [phone] Encounter Details Date Type Department Care Team (Late st Contact Info) Description 12/17/2010 [place] [address] Mony Fierro, RN Social History [...] PM EST Office [place] [address] Hollie Ambriz MD [facility] [place] [address] documented as of this encounter Visit Diagnoses Not on filedocumented in this encounter Care Teams Steak Sauce Maker Relationship Specialty Start Date End Date Naina Lindsey MD [address] [place] [address] PCP - General 03/19/10 08/25/16 documented as of this encounter
--- OUTSIDE RECORDS SUMMARY | 2023-12-04 12:43 | XMS_ITS | Encounter Summary ---
Author Organization [facility] [address] Care Team Providers Care Dental Billing Specialist Name Role Phone Naina Lindsey MD Primary Care Provider [phone] Reason for Referral * Consultation (Routine) - Complete - Patient Will Schedule External Appt Specialty Diagnoses / Procedures Referred By Contac t Referred To Contact Orthotics Diagnoses Edema leg Scoliosis Acquired dysplasia of hip Traumatic brain injury Yas Ramirez MD [facility] [place] [address] Referral ID Status Reason Start Date Expiration Date Visits Requested Visits Authorized [id number] Complete - Patient Will Schedule External Appt Consult, Test & Treat 1 10/13/2011 1 1 Encounter Details Date Type Department Care Team (Late st Contact Info) Description 04/16/2011 Orders [place] [address] Yas Ramirez MD [facility] [place] [address] Edema leg; Scoliosis; Acquired dysplasia of hip, [...] PM EST Office [place] [address] Hollie Ambriz MD [facility] [place] [address] Scheduled Referrals Name Type Priority Associated Diagnoses [...] consciousness documented in this encounter Care Teams Dental Billing Specialist Relationship Specialty Start Date End Date Naina Lindsey MD [address] [place] [address] PCP - General 03/19/10 08/25/16 documented as of this encounter
--- OUTSIDE RECORDS SUMMARY | 2023-12-04 12:43 | XMS_ITS | Encounter Summary ---
Author Organization [facility] Address [facility] [place] [address] Care Team Providers Care 1 Year Olds Preschool Teacher Name Role Phone Naina Lindsey MD Primary Care Provider [phone] Encounter Details Date Type Department Care Team (Latest Contact Info) Description 09/24/2010 1:20 PM EDT - 09/24/2010 11:59 PM EDT Hospital Encounter XRay at [address] [place] [address] Muscle spasticity Social History Tobacco Use Types [...] PM EST Office Visit [place] [address] Hollie Ambriz MD [facility] [place] [address] documented as of this encounter Procedures Procedure [...] muscle documented in this encounter Care Teams 1 Year Olds Preschool Teacher Relationship Specialty Start Date End Date Naina Lindsey MD [address] [place] [address] PCP - General 03/19/10 08/25/16 documented as of this encounter
--- OUTSIDE RECORDS SUMMARY | 2023-12-04 12:43 | XMS_ITS | Encounter Summary ---
Author Organization [facility] Address [place] [address] Care Team Providers Care Picker Tender Helper Name Role Phone Naina Lindsey MD Primary Care Provider [phone] Reason for Referral * Physical Therapy (Routine) - Complete - Patient Will Schedule External Appt Specialty Diagnoses / Procedures Referred By Karlo t Referred To Contact Physical Therapy Diagnoses Developmental delay Yas Ramirez MD [facility] [address] Referral ID Status Reason Start Date Expiration Date Visits Requested Visits Authorized [id number] Complete - Patient Will Schedule External Appt Evaluate and Treat 09/24/2010 03/23/2011 1 1 Reason for Visit * Reason Comments Follow Up Surgery spica cast Encounter Details Date Type Department Care Team (Late st Contact Info) Description 09/24/2010 2:20 PM EDT [place] [phone] Yas Ramirez MD [facility] [address] Developmental delay (Primary Dx); Traumatic brain injury [...] PM EST Office [place] [address] Hollie Ambriz MD [facility] [place] [address] Scheduled Referrals Name Type Priority Associated Diagnoses [...] hip documented in this encounter Care Teams Picker Tender Helper Relationship Specialty Start Date End Date Naina Lindsey MD [address] [place] [address] [place] [address] PCP - General 03/19/10 08/25/16 documented as of this encounter
--- OUTSIDE RECORDS SUMMARY | 2023-12-04 12:43 | XMS_ITS | Encounter Summary ---
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 Dotson Reason for Reprogramming: Pump alarm date approaching Diagnosis: Spacticity, traumatic head injury Telemetry Pre-programming Reading: Drug Concentration Daily Dose Baclofen 1,000 mcg/ ml 195.1 mcg/ day Telemetry Post-programming Reading: Drug Concentration Daily Dose Brand (B) or Compound (C) Lot number Baclofen 1,000 mcg/ ml 195.1 mcg/ day Compound #[id number] Simple Continuous Rx # [id number] Exp. 02/05/13 Pump Capacity: 40 ml Computer Predicted Residual Volume in Pump (ml): 4.5 ml Measured Residual volume in Pump (ml): 5.8 ml Medication or Dose Changes: no Is dose change > 30%? n/a Is concentration or drug different? no Empty syringe concentration verified by specifications checker: yes If concentration or drug is [...] instilled into the pump according to the mix technician's directions without difficulty. There was no evidence [...] PM EST Office [place] [address] Hollie Ambriz MD [facility] [place] [address] documented as of this encounter Procedures Procedure [...] with Reprogramming Procedure Note Tana Cavazos ? [id number] Date of Refill: January 20, 2013 Primary Long Wall Shear Operator: ASHKAN BRANTLEY APRN Foreclosure Field Inspector: Dr. Dotson Reason for Reprogramming: ??Pump alarm date approaching Diagnosis: ??Spacticity, traumatic head injury Telemetry Pre-programming Reading: Drug Concentration Daily Dose Baclofen 1,000 mcg/ ml 195.1 mcg/ day ? Telemetry Post-programming Reading: ?? Drug Concentration Daily Dose Brand (B) or Compound (C) Lot number Baclofen 1,000 mcg/ ml 195.1 mcg/ day Compound #[id number] Simple Continuous ?? Rx # [id number] Exp. 02/05/13 ? Pump Capacity: ??40 ml Computer Predicted Residual Volume in Pump (ml): ??4.5 ml Measured Residual volume in Pump (ml): 5.8 ml Medication or Dose Changes: ?no Is dose change > 30%?n/a Is concentration or drug different? ??no Empty syringe concentration verified by specifications checker: ?? yes If concentration or drug [...] location, and all relevant critical information with LNA. Christy Time out was performed including verification of. ? Patient Name on RX: yes ?? Drug Name on RX:yes ?? Drug concentration on syringe containing pump refill medication: yes The pump was accessed via telemetry and the computer predicted residual volume was noted as per above. Then Chlorhexidine prep over the pump refill site was performed. ??Sterile drapes were applied as provided with the ??Vidimax refill kit. A 22 gauge Persaud non-coring [...] instilled into the pump according to the mix technician's directions without difficulty. There was no evidence [...] as appropriate. ASHKAN BRANTLEY APRN Procedure Note Ashkna Brantley APRN - 01/20/2013 3:32 PM EDT [facility] Refill of Intrathecal Pump with Reprogramming Procedure Note Tana Cavazos [id number] Date of Refill: January 20, 2013 Primary Long Wall Shear Operator: ASHKAN BRANTLEY APRN Foreclosure Field Inspector: Dr. Dotson Reason for Reprogramming: Pump alarm date approaching Diagnosis: Spacticity, traumatic head injury Telemetry Pre-programming Reading: Drug Concentration Daily Dose Baclofen 1,000 mcg/ ml 195.1 mcg/ day Telemetry Post-programming Reading: Drug Concentration Daily Dose Brand (B) or Compound (C) Lot number Baclofen 1,000 mcg/ ml 195.1 mcg/ day Compound #[id number] Simple Continuous Rx # [id number] Exp. 02/05/13 Pump Capacity: 40 ml Computer Predicted Residual Volume in Pump (ml): 4.5 ml Measured Residual volume in Pump (ml): 5.8 ml Medication or Dose Changes: no Is dose change > 30%? n/a Is concentration or drug different? no Empty syringe concentration verified by specifications checker: yes If concentration or drug is [...] wasinstilled into the pump according to the mix technician's directions withoutdifficulty. There was no evidence of [...] procedure well [facility] Follow-up appointments will be arranged for refills asappropriate. ASHKAN BRANTLEY APRN Bigg Dunbar MD PROCEDURE/MINOR S [...] each documented in this encounter Care Teams Quality Assurance Project Manager Relationship Specialty Start Date End Date Naina Lindsey MD [address] [place] [address] PCP - General 03/19/10 08/25/16 documented as of this encounter
--- OUTSIDE RECORDS SUMMARY | 2023-12-04 12:43 | XMS_ITS | Encounter Summary ---
Author Organization [facility] [place] [address] Care Team Providers Care Life Teacher Name Role Phone Naina Lindsey MD Primary Care Provider [phone] Encounter Details Date Type Department Care Team (Late st Contact Info) Description 02/27/2014 Telephone [place] [address] Donnell Dotson MD [facility] [place] [address] Social History Tobacco Use Types Packs/Day Years [...] PM EST Office [place] [address] Hollie Ambriz MD [facility] [place] [address] documented as of this encounter Visit Diagnoses Not on filedocumented in this encounter Care Teams Life Teacher Relationship Specialty Start Date End Date Naina Lindsey MD [address] [place] [address] PCP - General 03/19/10 08/25/16 documented as of this encounter
--- OUTSIDE RECORDS SUMMARY | 2023-12-04 12:43 | XMS_ITS | Encounter Summary ---
[place] [address] Care Team Providers Care Gel Coater Name Role Phone Naina Lindsey MD Primary Care Provider [phone] Encounter Details Date Type Department Care Team (Late st Contact Info) Description 08/01/2012 Notes [place] [phone] Chelsea Alva RN Social History Tobacco Use [...] PM EST Office Visit [place] [address] Hollie Ambriz MD [facility] [place] [address] documented as of this encounter Visit Diagnoses Not on filedocumented in this encounter Care Teams Gel Coater Relationship Specialty Start Date End Date Naina Lindsey MD [address] [place] [address] [place] [address] PCP - General 03/19/10 08/25/16 documented as of this encounter
--- OUTSIDE RECORDS SUMMARY | 2023-12-04 12:43 | XMS_ITS | Encounter Summary ---
Author Organization [facility] [place] [address] Care Team Providers Care Band Saw Operator Name Role Phone Naina Lindsey MD Primary Care Provider [phone] Encounter Details Date Type Department Care Team (Late st Contact Info) Description 11/04/2010 4:00 PM EDT Office Visit [place] [address] Gloria López, RVT Acquired dysplasia of hip, [...] PM EST Office [place] [address] Hollie Ambriz MD [facility] [address] documented as of this encounter Procedures Procedure Name Priority Date/Time Associated Diagnosis Comments DUPLEX FOR DVT, LEG, UNILAT Routine 11/04/2010 3:55 PM EDT Acquired dysplasia of hip, bilateral Edema leg documented in this encounter Results * Duplex for DVT, Leg, Unilat (11/04/2010 3:55 PM EDT) VB Text Report Department: Vascular Surgery Lab Patient: [id number] (TANA SHELTON) CPT Code: 54739 ICD-9: 729.81 Referring Physician: BARRERA OLIVER Indication: [...] PM EDT Barrera Oliver MD VASCULAR ORDERABLES Performing Organization Address City/State/[facility] Co de Phone Number [facility] documented in this encounter Visit Diagnoses Diagnosis Acquired dysplasia of hip, bilateral Other acquired deformities of hip Edema leg Edema documented in this encounter Care Teams Band Saw Operator Relationship Specialty Start Date End Date Naina Lindsey MD [address] [place] [address] [place] [address] PCP - General 03/19/10 08/25/16 documented as of this encounter
--- OUTSIDE RECORDS SUMMARY | 2023-12-04 12:43 | XMS_ITS | Encounter Summary ---
Author Organization [facility] [place] [address] Care Team Providers Care Core Dipper Name Role Phone Naina Lindsey MD Primary Care Provider [phone] Encounter Details Date Type Department Care Team (Late st Contact Info) Description 06/30/2011 Orders [place] [address] Boyd Dillon MD [facility] [place] [address] Spasticity (Primary Dx) Social History Tobacco Use [...] PM EST Office [place] [address] Hollie Ambriz MD [facility] [place] [address] documented as of this encounter Visit Diagnoses Diagnosis Spasticity- Primary Abnormal involuntary movements documented in this encounter Care Teams Core Dipper Relationship Specialty Start Date End Date Naina Lindsey MD [address] [place] [address] [place] [address] PCP - General 03/19/10 08/25/16 documented as of this encounter
--- OUTSIDE RECORDS SUMMARY | 2023-12-04 12:43 | XMS_ITS | Encounter Summary ---
Author Organization [facility] Address [facility] [place] [address] Care Team Providers Care Lozenge Dough Mixer Name Role Phone Naina Lindsey MD Primary Care Provider [phone] Reason for Referral * Consultation (Routine) - Closed Specialty Diagnoses / Procedures Referred By Contac t Referred To Contact Pediatric Neurosurgery Diagnoses Baclofen pump failure, initial encounter Donnell Dotson MD [facility] [place] [address] Jamaal Samuel MD [facility] [place] [address] Referral ID Status Reason Start Date Expiration Date V isits Requested Visits Authorized [id number] Closed Consult, Test & Treat 02/15/2014 08/14/2014 1 1 Encounter Details Date Type Department Care Team (Late st Contact Info) Description 02/15/2014 Orders [place] [address] Donnell Dotson MD [facility] PA[facility] CL[facility]IC [place] [id number] Baclofen pump failure, initial encounter Social History [...] PM EST Office [place] [address] Hollie Ambriz MD [facility] DR [place] [address] Scheduled Referrals Name Type Priority Associated Diagnoses Order Schedule Referral to Pediatric Neurosurgery Outpatient Referral Routine Baclofen pump failure, initial encounter Ordered: 02/15/2014 documented as of this encounter Visit Diagnoses Diagnosis Baclofen pump failure, initial encounter documented in this encounter Care Teams Lozenge Dough Mixer Relationship Specialty Start Date End Date Naina Lindsey MD [address] [place] [address] PCP - General 03/19/10 08/25/16 documented as of this encounter
--- OUTSIDE RECORDS SUMMARY | 2023-12-04 12:43 | XMS_ITS | Encounter Summary ---
Author Organization [facility] Benjamin [facility] [place] [address] Care Team Providers Care Cell Feed Department Supervisor Name Role Phone Naina Lindsey MD Primary Care Provider [phone] Encounter Details Date Type Department Care Team (Late st Contact Info) Description 08/19/2010 Orders [place] [address] Lucho Fields MD [facility] [place] [address] Social History Tobacco Use Types Packs/Day Years [...] PM EST Office Visit [place] [address] Hollie Ambriz MD [facility] [place] [address] documented as of this encounter Visit Diagnoses Not on filedocumented in this encounter Care Teams Cell Feed Department Supervisor Relationship Specialty Start Date End Date Nain[place] [address] PCP - General 03/19/10 08/25/16 documented as of this encounter
--- OUTSIDE RECORDS SUMMARY | 2023-12-04 12:43 | XMS_ITS | Encounter Summary ---
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 Zaldivar Deputy United [place] Marshal: Dr. Dillon Reason for Reprogramming: Refill/weaning Diagnosis: [...] instilled into the pump according to the blow up operator's directions without difficulty. There was no [...] medication. Nitin Zaldivar MD Fellow, Pain Medicine 0167 documented in this encounter Miscellaneous Notes * Miscellaneous - Delbert, Specialties Operator - 05/01/2011 2:01 PM EST documented in this encounter Plan of Treatment Upcoming Encounters Date Type Department Care Team (Late st Contact Info) Description 06/02/2024 12:30 PM EST Office Visit Infectious [place] [address] Hollie Ambriz MD [facility] [place] [address] documented as of this encounter Visit Diagnoses [...] each documented in this encounter Care Teams Home Extension Agent Relationship Specialty Start Date End Date Naina Lindsey MD [address] [place] [address] PCP - General 03/19/10 08/25/16 documented as of this encounter
--- OUTSIDE RECORDS SUMMARY | 2023-12-04 12:43 | XMS_ITS | Encounter Summary ---
Author Organization [facility] [place] [address] Care Team Providers Care Line Fisher Name Role Phone Naina Lindsey MD Primary Care Provider [phone] Encounter Details Date Type Department Care Team (Late st Contact Info) Description 04/15/2011 Orders [place] [address] Margaux Godfrey MD [facility] [address] PA[address] [place] [address], [place] [phone] Spasticity (Primary Dx) Social History Tobacco Use [...] PM EST Office [place] [address] Hollie Ambriz MD [facility] [place] [address] documented as of this encounter Visit Diagnoses Diagnosis Spasticity- Primary Abnormal involuntary movements documented in this encounter Care Teams Line Fisher Relationship Specialty Start Date End Date Naina Lindsey MD [address] [place] [address] PCP - General 03/19/10 08/25/16 documented as of this encounter
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
--- OUTSIDE RECORDS SUMMARY | 2023-12-04 12:43 | XMS_ITS | Encounter Summary ---
Author Organization [facility] [place] [address] Care Team Providers Care Cabin Furnishings Installer Name Role Phone Naina Lindsey MD Primary Care Provider [phone] Reason for Referral * Occupational Therapy (Routine) - Complete - Patient Will Schedule External Appt Specialty Diagnoses / Procedures Referred By Contac t Referred To Contact Occupational Therapy Diagnoses Acquired dysplasia of hip Scoliosis Traumatic brain injury Yas Ramirez MD [facility] [place] [address] Referral ID Status Reason Start Date Expiration Date Visits Requested Visits Authorized [id number] Complete - Patient Will Schedule External Appt Evaluate and Treat 01/02/2011 07/01/2011 1 1 * Physical Therapy (Routine) - Complete - Patient Will Schedule External Appt Specialty Diagnoses / Procedures Referred By Contac t Referred To Contact Physical Therapy Diagnoses Acquired dysplasia of hip Scoliosis Traumatic brain injury Yas Ramirez MD [facility] [place] [address] Referral ID Status Reason Start Date Expiration Date Visits Requested Visits Authorized [id number] Complete - Patient Will Schedule External Appt Evaluate and Treat 01/02/2011 07/01/2011 1 1 Encounter Details Date Type Department Care Team (Late st Contact Info) Description 01/02/2011 Orders Only Orthopaedics at [place] [phone] Yas Ramirez MD [facility] [place] [address] Acquired dysplasia of hip, bilateral; Scoliosis; Traumatic [...] PM EST Office Visit Infectious Disease at [address] Hollie Ambriz MD [facility] [place] [address] Scheduled Referrals Name Type Priority Associated Diagnoses [...] consciousness documented in this encounter Care Teams Cabin Furnishings Installer Relationship Specialty Start Date End Date Naina Lindsey MD [address] [place] [address] [place] [address] PCP - General 03/19/10 08/25/16 documented as of this encounter
--- OUTSIDE RECORDS SUMMARY | 2023-12-04 12:44 | XMS_ITS | Encounter Summary ---
Author Organization [facility] Address [address] [place] [address] Care Team Providers Care Wheel Of Fortune Dealer Name Role Phone César Robert MD, Naina Primary Care Provider [phone] Encounter Details Date Type Department Care Team (Late st Contact Info) Description 07/01/2023 Lab Requisition [facility] Pathology & Laboratory Medicine - [address] [id number] Outr Resulting Lab, Provider Social History Tobacco [...] 85 - 499 mg/dL 07/02/2023 11:39 EST [facility] Blood VENOUS BLOOD / Unknown 07/01/2023 10:52 EST 07/01/2023 21:19 EST Provider Outr Resulting Lab CHEMISTRY & BLOOD GAS ORDERABLES Performing Organization Address City/[facility] Co de Phone Number [facility] [address] [place] [address] * (ABNORMAL) IGG (07/01/2023 10:52 EST) IgG 1,631(H) 610 - 1,616 mg/dL 07/02/2023 11:39 EST [facility] Blood VENOUS BLOOD / Unknown 07/01/2023 10:52 EST 07/01/2023 21:19 EST Provider Outr Resulting Lab CHEMISTRY & BLOOD GAS ORDERABLES Performing Organization Address City/[facility] Co de Phone Number [facility] [address] [place], [place] [address] documented in this encounter Visit Diagnoses Not on filedocumented in this encounter Care Teams Wheel Of Fortune Dealer Relationship Specialty Start Date End Date Niana Lindsey MD [address] [place] [address] PCP - General 02/13/15 documented as of this encounter
--- OUTSIDE RECORDS SUMMARY | 2023-12-04 12:44 | XMS_ITS | Encounter Summary ---
Author Organization [facility] [place] [address] Care Team Providers Care Assembly Person Name Role Phone Naina Lindsey MD Primary Care Provider [phone] Encounter Details Date Type Department Care Team (Late st Contact Info) Description 06/12/2010 9:30 AM EST [place] [address] Yas Ramirez MD [facility] [place] [address] Discharge Disposition: Home Social History Tobacco Use [...] PM EST Office [place] [address] Hollie Ambriz MD [facility] [place] [address] documented as of this encounter Visit Diagnoses Not on filedocumented in this encounter Care Teams Assembly Person Relationship Specialty Start Date End Date Naina Lindsey MD [address] [place] [address] PCP - General 03/19/10 08/25/16 documented as of this encounter
--- OUTSIDE RECORDS SUMMARY | 2023-12-04 12:44 | XMS_ITS | Encounter Summary ---
Author Organization [facility] Address [address] [place] [address] Care Team Providers Care Safety Coordinator Name Role Phone César Robert MD, Naina Primary Care Provider [phone] Reason for Visit * Reason Onset Date Comments Appointment Related 09/29/2019 Encounter Details Date Type Department Care Team (Late st Contact Info) Description 09/29/2019 Telephone [facility] Rehabilitation Therapy - [address] [id number] Therapy, Physical Appointment Related Social History Tobacco [...] PT, DPT and Ramin Samuel [employer] from [employer]. She confirmed their availability for this date/time. Gretchen Dietz MA 09/29/2019 11:11 documented in this encounter Plan of Treatment Not on file documented as of this encounter Visit Diagnoses Not on filedocumented in this encounter Care Teams Safety Coordinator Relationship Specialty Start Date End Date Naina Lindsey MD [address] [place] [address] PCP - General 02/13/15 documented as of this encounter
--- OUTSIDE RECORDS SUMMARY | 2023-12-04 12:44 | XMS_ITS | Encounter Summary ---
Author Organization [facility] Address [address] [place] [address] Care Team Providers Care Marine Equipment Research Engineer Name Role Phone César Robert MD, Naina Primary Care Provider [phone] Reason for Visit * Reason Onset Date Comments Appointment Related 03/03/2019 Encounter Details Date Type Department Care Team (Late st Contact Info) Description 03/03/2019 Telephone [facility] Rehabilitation Therapy - [address] [id number] Therapy, Physical Appointment Related Social History Tobacco [...] for the wheelchair clinic appointment here at [facility] from 02-05. GRETCHEN DIETZ MA 03/03/2019 8:43 documented in this encounter Plan of Treatment Not on file documented as of this encounter Visit Diagnoses Not on filedocumented in this encounter Care Teams Marine Equipment Research Engineer Relationship Specialty Start Date End Date Naina Lindsey MD [address] [place] [address] PCP - General 02/13/15 documented as of this encounter
--- OUTSIDE RECORDS SUMMARY | 2023-12-04 12:44 | XMS_ITS | Encounter Summary ---
Author Organization [facility] Address [address] [place] [address] Care Team Providers Care Flooring Sales Manager Name Role Phone César Robert MD, Naina Primary Care Provider [phone] Encounter Details Date Type Department Care Team (Late st Contact Info) Description 04/24/2023 Lab Requisition [facility] Pathology & Laboratory Medicine - [address] [id number] Outr Resulting Lab, Provider Social History Tobacco [...] Surface Ag Negative Negative 04/24/2023 22:33 EST [facility] Hep C Antibody Negative Negative 04/24/2023 22:33 EST [facility] Hepatitis A Antibody, IgM Negative Negative 04/24/2023 22:33 EST [facility] Comment:The results of this assay can be falsely lowered due to the consumption of Biotin. Hepatitis B Core Ab, Total Negative Negative 04/24/2023 22:33 EST [facility] Blood VENOUS BLOOD / Unknown 04/24/2023 10:00 EST 04/24/2023 21:06 EST Provider Outr Resulting Lab CHEMISTRY & BLOOD GAS ORDERABLES [facility] [address] [place] [address] documented in this encounter Visit Diagnoses Not on filedocumented in this encounter Care Teams Flooring Sales Manager Relationship Specialty Start Date End Date Naina Lindsey MD [address] [place] [address] PCP - General 02/13/15 documented as of this encounter
--- OUTSIDE RECORDS SUMMARY | 2023-12-04 12:44 | XMS_ITS | Encounter Summary ---
Author Organization [facility] Address [address] [place] [address] Care Team Providers Care Senior Pl Sql Developer Name Role Phone César Roebrt MD, Naina Primary Care Provider [phone] Encounter Details Date Type Department Care Team (Late st Contact Info) Description 07/01/2023 Lab Requisition [facility] Pathology & Laboratory Medicine - [address] [id number] Outr Resulting Lab, Provider Social History Tobacco [...] IgA <4.0 <20.0 CU 07/02/2023 10:22 EST [facility] Comment: Negative: <20.0 CU Weak Positive: 20.0-30.0 CU Positive: >30.0 CU Results were obtained with the [employer] Flash h-tTG IgA chemiluminescent immunoassay. Values obtained with different manufacturers' assay methods may not be used interchangeably. Blood VENOUS BLOOD / Unknown 07/01/2023 10:52 EST 07/01/2023 21:12 EST Provider Outr Resulting Lab IMMUNOLOGY A ND SEROLOGY ORDERABLES Performing Organization Address City/State/[place] Co de Phone Number [facility] [address] [place], [place] [phone] documented in this encounter Visit Diagnoses Not on filedocumented in this encounter Care Teams Senior Pl Sql Developer Relationship Specialty Start Date End Date Naina Lindsey MD [address] [place] [address] PCP - General 02/13/15 documented as of this encounter
--- OUTSIDE RECORDS SUMMARY | 2023-12-04 12:44 | XMS_ITS | Encounter Summary ---
Author Organization [facility] Address [address] [place] [address] Care Team Providers Care Fudger Name Role Phone César Robert MD, Naina Primary Care Provider [phone] Reason for Visit * Reason Onset Date Comments DME 08/11/2019 Encounter Details Date Type Department Care Team (Late st Contact Info) Description 08/11/2019 Telephone [facility] Rehabilitation Therapy - [facility] [address] [place], [place] [address] Candelaria Jaquez, ELVIRA [address] [place] [address] DME Social History Tobacco Use [...] on filedocumented in this encounter Care Teams Fudger Relationship Specialty Start Date End Date Naina Lindsey MD [address] [place] [address] PCP - General 02/13/15 documented as of this encounter
--- OUTSIDE RECORDS SUMMARY | 2023-12-04 12:44 | XMS_ITS | Encounter Summary ---
Author Organization [facility] [place] [address] [place] [address] Care Team Providers Care Setter Cold Rolling Machine Name Role Phone Naina Lindsey MD Primary Care Provider [phone] Encounter Details Date Type Department Care Team (Late st Contact Info) Description 08/13/2010 Orders [place] [address] Yas Ramirez MD [facility] [place] [address] DDH (developmental dysplasia of the hip) (Primary [...] PM EST Office [place] [address] Hollie Ambriz MD [facility] [place] [address] documented as of this encounter Visit Diagnoses Diagnosis 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
--- OUTSIDE RECORDS SUMMARY | 2023-12-04 12:44 | XMS_ITS | Encounter Summary ---
Author Organization [facility] Address [address] [place] [address] Care Team Providers Care Condemnation Engineer Name Role Phone César Robert MD, Naina Primary Care Provider [phone] Encounter Details Date Type Department Care Team (Latest Contact Info) Description 11/30/2018 12:49 EDT - 11/30/2018 23:59 EDT Hospital Encounter [address] [address] Lorna Bal, PIG CASTER [address] [facility] [address] [place] [phone] Discharge Disposition: Auto Discharge Social History Tobacco [...] on filedocumented in this encounter Care Teams Condemnation Engineer Relationship Specialty Start Date End Date Naina Lindsey MD [address] [place] [address] PCP - General 02/13/15 documented as of this encounter
--- OUTSIDE RECORDS SUMMARY | 2023-12-04 12:44 | XMS_ITS | Encounter Summary ---
Author Organization [facility] [address] [facility] [place] [address] Care Team Providers Care County Court Judge Name Role Phone Naina Lindsey MD Primary Care Provider [phone] Encounter Details Date Type Department Care Team (Late st Contact Info) Description 07/11/2010 9:00 AM EDT [place] [id number] Andrade Gordon MD [facility] [place] [address] Discharge Disposition: Home Social History Tobacco Use [...] PM EST Office [place] [phone] Hollie Ambriz MD [facility] [place] [address] documented as of this encounter Visit Diagnoses Not on filedocumented in this encounter Care Teams County Court Judge Relationship Specialty Start Date End Date Naina Lindsey MD [address] [place] [address] PCP - General 03/19/10 08/25/16 documented as of this encounter
--- OUTSIDE RECORDS SUMMARY | 2023-12-04 12:44 | XMS_ITS | Encounter Summary ---
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 Address [facility] de Phone Number [facility] * REFLEX LAB-ABO/RH TYPING (08/15/2010 9:30 AM EDT) ABORH Type O Pos [facility] Blood specimen (specimen) 08/15/2010 9:30 AM EDT 08/15/2010 10:17 AM EDT Erika Curtis MD BLOOD BANK LAB ORDER MYRANDA Performing Organization Address [facility] Co de Phone Number [facility] * (ABNORMAL) REFLEX LAB-A-DIFF (08/15/2010 8:50 AM EDT) Neutrophil % 73.3 37.0 - 77.0 % [facility] Neutrophil Absolute 4.44 1.50 - 8.00 x10(3)/mc L CERNER MILLENNIUM Lymph % 19.3(L) 20.0 - 50.0 % CERNER MILLENNIUM Lymphocytes Abs 1.2 1.2 - 5.2 x10(3)/mc L CERNER MILLENNIUM Monocyte % 5.4 2.0 - 12.0 % CERNER MILLENNIUM Monocyte Abs 0.3 0.2 - 1.0 x10(3)/mc L CERNER MILLENNIUM Eos % 1.5 0.0 - 7.0 % CERNER MILLENNIUM Eosinophils Abs 0.1 0.0 - 0.5 x10(3)/mc L CERNER MILLENNIUM Basophil % 0.3 0.0 - 2.0 % CERNER MILLENNIUM Baso Absolute 0.0 0.0 [...] CBC (with Diff) (08/15/2010 8:50 AM EDT) White Blood Cell 6.1 4.5 - 13.0 x10(3)/mcL CERNER MILLENNIUM Red Blood Cell 4.71 4.10 - 5.10 x10(6)/mcL CERNER MILLENNIUM Hemoglobin 13.6 12.0 - 16.0 gm/dL CERNER MILLENNIUM Hematocrit 40.6 36.0 - 46.0 % CERNER MILLENNIUM Mean Cell Volume 86.2 76.0 - 98.0 fL CERNER MILLENNIUM Mean Cell Hemoglobin 28.9 25.0 - 35.0 pg CERNER MILLENNIUM Mean Cell Hemoglobin Concentration 33.5 32.0 - 36.5 gm/dL CERALIN MILLENNIUM Platelet 307 145 - 370 x10(3)/mcL CERNER MILLENNIUM RDW Standard Deviation 44.7 35.0 - 46.0 fL CERNER MILLENNIUM RDW coefficient of variation 14.2 10.9 - 14.4 % CERNER MILLENNIUM Mean Platelet Volume 10.9 9.0 - 12.0 fL CERALIN MILLENNIUM Blood specimen (specimen) 08/15/2010 8:50 AM EDT 08/15/2010 9:11 AM EDT Erika Curtis MD HEMATOLOGY ORDERABLE S LINDA BASHIR documented in this encounter Visit Diagnoses Diagnosis Acquired dysplasia of hip, bilateral- Primary Other acquired deformities of hip DDH (developmental dysplasia of the hip) Other congenital deformity of hip (joint) Other congenital deformity of hip (joint) DUMMY CODE, SEND TO W-locate Lack of normal physiological development, unspecified Scoliosis [...] Oral, EVERY 6 HOURS PRN, Starting on Thu08/17/10 at 0735, Until Thu08/19/10 at 1719, Anxiety, Spasm, Routine Given 08/18/2010 2:18 PM EDT 5 m g Given 08/18/2010 8:20 AM EDT 5 mg Given 08/17/2010 2:34 PM EDT 5 mg docusate sodium (COLACE) 10 mg/mL pedi oral liquid 100 mg 100 mg (2.2 mg/kg/dose), Oral, DAILY, First dose (after last reorder) on Thu08/17/10 at 0900, Until Discontinued, Routine Given 08/19/2010 12:39 PM EDT 100 mg docusate sodium (COLACE) capsule 100 mg 100 mg (2.2 mg/kg/dose), Oral, DAILY, First dose on Thu08/17/10 at 0900, Until Discontinued, Routine Given 08/18/2010 [...] Oral, 2 TIMES DAILY, First dose on [place] 08/18/10 at 1100, Until Discontinued, Routine Given 08/19/2010 8:51 AM EDT 20 mg Given 08/18/2010 8:09 PM EDT 20 mg Given 08/18/2010 10:33 AM EDT 20 mg HYDROmorphone (PF) (DILAUDID) 2 mg/mL injection 0.2-0.4 mg 0.2-0.4 mg (0.52141-5.75999 mg/kg/dose), Intravenous, EVERY 5 MIN PRN, Starting [...] Oral, EVERY 4 HOURS PRN, Starting on Thu08/15/10 at 1544, Until Thu08/18/10 at 0845, Pain, [...] 2100 0827 (Given - Provider: Uma Chanel RN)143 (Given - Provider: Uma Chanel RN)2043 (Given - Provider: Deanna Khan RN) 0830 (Given - Provider: Uma Chanel RN)1418 (Given - Provider: Uma Chanel RN)2007 (Given - Provider: Deanna Khan RN) docusate sodium (COLACE) 10 mg/mL pedi oral liquid 100 mg (CANCELED)(Linked Group 1) 100 mg (2.2 mg/kg/dose), Oral, DAILY, First dose (after last reorder) on 08/17/10 at 0900, Until Discontinued, Routine 826 (See Alternative - Provider: Uma Chanel RN) 0830 (See Alternative - Provider: Uma Chanel RN) 1239 (Given - Provider: Elmer Cotto RN) docusate sodium (COLACE) capsule 100 mg (CANCELED)(Linked Group 1) 100 mg (2.2 mg/kg/dose), Oral, DAILY, First dose on 08/17/10 at 0900, Until Discontinued, Routine 826 (Given - Provider: Uma Chanel RN) 0830 [...] Provider: Uma Chanel RN)1418 (Given - Provider: mUa Chanle RN)2008 (Given - Provider: Deanna Khan RN) [...] Routine documented in this encounter Care Teams Compensation Analyst Relationship Specialty Start Date End Date Naina Lindsey MD [address] [place] [address] PCP - General 03/19/10 08/25/16 documented as of this encounter
--- OUTSIDE RECORDS SUMMARY | 2023-12-04 12:44 | XMS_ITS | Encounter Summary ---
Author Organization [facility] Address [address] [place] [address] Care Team Providers Care Galley Hand Name Role Phone César Robert MD, Naina Primary Care Provider [phone] Reason for Visit * Reason Onset Date Comments Other 01/04/2016 Encounter Details Date Type Department Care Team (Late st Contact Info) Description 01/04/2016 Telephone [facility] Rehabilitation Therapy - [address] [id number] Therapy, Outpatient, Other Social History Tobacco Use [...] I have spoken to Oliver Lozano at [facility], but he could not see in their paperwork a clear delivery timeframe. I have sent an e-mail to Ramin Samuel and Amna Giraldo at [facility] asking that someone call Javed and give her an estimate of when the chair will be delivered. documented in this encounter Plan of Treatment Not on file documented as of this encounter Visit Diagnoses Not on filedocumented in this encounter Care Teams Galley Hand Relationship Specialty Start Date End Date Naina Lindsey MD [address] [place] [address] PCP - General 02/13/15 documented as of this encounter
--- OUTSIDE RECORDS SUMMARY | 2023-12-04 12:44 | XMS_ITS | Encounter Summary ---
Author Organization [facility] Address [address] [place] [address] Care Team Providers Care Senior Business Architect Name Role Phone César Robert MD, Naina Primary Care Provider [phone] Reason for Visit * Reason Onset Date Comments Appointment Related 11/04/2018 Encounter Details Date Type Department Care Team (Late st Contact Info) Description 11/04/[address] [facility] Rehabilitation Therapy - [address] [address] Therapist, Physical, PT Appointment Related Social History [...] filedocumented in this encounter Care Teams Senior Business Architect Relationship Specialty Start Date End Date Naina Lindsey MD [address] [place] [address] [place], [place] [address] PCP - General 02/13/15 documented as of this encounter
--- OUTSIDE RECORDS SUMMARY | 2023-12-04 12:44 | XMS_ITS | Encounter Summary ---
Author Organization [facility] Address [facility] [place] [address] Care Team Providers Care Steam Roller Operator Name Role Phone Naina Lindsey MD Primary Care Provider [phone] Encounter Details Date Type Department Care Team (Late st Contact Info) Description 08/13/2010 Abstract [place] [phone] Yas Ramirez MD [facility] DR ORTHOPAEDIC [place] [address] Social History Tobacco Use Types Packs/Day Years [...] PM EST Office Visit [place] [phone] Hollie Ambriz MD [facility] DR INFECTI[place] [address] documented as of this encounter Visit Diagnoses Not on filedocumented in this encounter Care Teams Steam Roller Operator Relationship Specialty Start Date End Date Naina Lindsey MD [address] [place] [address] PCP - General 03/19/10 08/25/16 documented as of this encounter
--- OUTSIDE RECORDS SUMMARY | 2023-12-04 12:44 | XMS_ITS | Encounter Summary ---
Author Organization [facility] Address [facility] [place] [address] Care Team Providers Care Warehouse Stock Clerk Name Role Phone Naina Lindsey MD Primary Care Provider [phone] Encounter Details Date Type Department Care Team (Late st Contact Info) Description 06/12/2010 9:00 AM EST Procedure visit [address] [address] Social History Tobacco Use Types Packs/Day Years [...] PM EST Office Visit [place] [address] Hollie Ambriz MD [facility] [place] [address] documented as of this encounter Visit Diagnoses Not on filedocumented in this encounter Care Teams Warehouse Stock Clerk Relationship Specialty Start Date End Date Naina Lindsey MD [address] [place] [address] [place], [place] [id number] PCP - General 03/19/10 08/25/16 documented as of this encounter
--- OUTSIDE RECORDS SUMMARY | 2023-12-04 12:44 | XMS_ITS | Encounter Summary ---
Author Organization [facility] Address [address] [place] [address] Care Team Providers Care Kayaking Instructor Name Role Phone César Robert MD, Naina Primary Care Provider [phone] Reason for Visit * Reason Onset Date Comments Appointment Related 09/27/2019 Encounter Details Date Type Department Care Team (Late st Contact Info) Description 09/27/2019 Telephone [facility] Rehabilitation Therapy - [address] [phone] Therapy, Physical Appointment Related Social History Tobacco [...] on filedocumented in this encounter Care Teams Kayaking Instructor Relationship Specialty Start Date End Date Naina Lindsey MD [address] [place] [address] PCP - General 02/13/15 documented as of this encounter
--- OUTSIDE RECORDS SUMMARY | 2023-12-04 12:44 | XMS_ITS | Encounter Summary ---
Author Organization [facility] Address [address] [place] [address] Care Team Providers Care Axle And Frame Mechanic Name Role Phone César Robert MD, Naina Primary Care Provider [phone] Reason for Visit * Reason Onset Date Comments Appointment Related 04/06/2019 Encounter Details Date Type Department Care Team (Late st Contact Info) Description 04/06/2019 Telephone [facility] Rehabilitation Therapy - [address] [phone] Therapy, Physical Appointment Related Social History Tobacco Use Types Packs/Day Years Used Date Smoking Tobacco: Never Assessed Sex and Gender Information Value Date Recorded Sex Assigned at Not on file Gender Identity Not on file Sexual Orientation Not on file documented as of this encounter Miscellaneous Notes * Telephone Encounter - Gretcehn Dietz MA - 04/06/2019 1126 EST VM message left for patients parent confirming availability for re-schedule of May 04 from - here at [facility]. This is a re-schedule from today as the vendor was ill. Gretchen Dietz MA 04/06/2019 11:26 documented in this encounter Plan of Treatment Not on file documented as of this encounter Visit Diagnoses Not on filedocumented in this encounter Care Teams Axle And Frame Mechanic Relationship Specialty Start Date End Date Naina Lindsey MD [address] [place], [place] [address] PCP - General 02/13/15 documented as of this encounter
--- OUTSIDE RECORDS SUMMARY | 2023-12-04 12:44 | XMS_ITS | Encounter Summary ---
Author Organization [facility] Address [address] [place] [address] Care Team Providers Care Real Estate Inspector Name Role Phone César Robert MD, Naina Primary Care Provider [phone] Reason for Visit * Reason Onset Date Comments Appointment Related 11/05/2018 Encounter Details Date Type Department Care Team (Late st Contact Info) Description 11/05/2018 Telephone [facility] Rehabilitation Therapy - [address] [address] Therapist, Physical, PT Appointment Related Social History Tobacco Use Types Packs/Day Years Used Date Smoking Tobacco: Never Assessed Sex and Gender Information Value Date Recorded Sex Assigned at Not on file Gender Identity Not on file Sexual Orientation Not on file documented as of this encounter Miscellaneous Notes * Telephone Encounter - Gretchen Dietz - 11/05/2018 1344 EDT [facility] [address] [address] Person providing information? Fernanda - Caregiver Guardian: - Phone number: [phone] 1. Who recommended that you be seen [...] additional questionnaire (if needed)? - Gretchen Dietz [facility] - [address] [address] Telephone Intake Information for Scheduling NEW Patients [...] on filedocumented in this encounter Care Teams Real Estate Inspector Relationship Specialty Start Date End Date Naina Lindsey MD [address] [place] [address] PCP - General 02/13/15 documented as of this encounter
--- OUTSIDE RECORDS SUMMARY | 2023-12-04 12:44 | XMS_ITS | Encounter Summary ---
Author Organization [facility] Address [address] [place] [address] Care Team Providers Care Award Clerk Name Role Phone César Robert MD, Naina Primary Care Provider [phone] Encounter Details Date Type Department Care Team (Late st Contact Info) Description 08/24/2018 Results Only [facility]- [facility] [phone] Raul Mak MD [address] [place] [address] Social History Tobacco Use Types Packs/Day Years [...] when reading/interpreti ng unformatted reports. Name: ? SHELTONJOHNArthur Hayes ? Accession #: ? [id number] ? : ? 1995 (Age: 23) ??F ? Collect Date: ? 08/24/2018 ? Location: ? [facility] ? Receive Date: ? 08/25/2018 ? Provider: RAUL MAK MD Copy to: JERED MARTINEZ COTTON JAMMER ? Final Pathologic Diagnosis: UTERUS AND FALLOPIAN [...] and mucin greatest dimension paratubal cyst. ? Sandblast Or Shotblast Equipment Tender sections are submitted as follows: BLOCK MONTOYA 1-2- ??detached left fallopian tube cross-sections and fimbria 3-4- ??attached right fallopian tube cross-sections with paratubal cyst and fimbria 5- bilateral cervix (anterior marked by blue) 6- ??bilateral lower uterine segments (anterior marked by blue ink) 7-9- ??posterior endomyometrium including probable endometrial polyp 10-11- ??anterior endomyometrium inbound customer service representative sections Dr. Mora 08/26/2018 3:08 PM End of Report [facility] 08/24/2018 11:4 5 EDT 08/25/2018 11:45 EDT Raul Mak MD PATHOLOGY ORDERABLES [facility] [address] [place] [address] documented in this encounter Visit Diagnoses Not on filedocumented in this encounter Care Teams Award Clerk Relationship Specialty Start Date End Date Naina Lindsey MD [address] [place] [address] PCP - General 02/13/15 documented as of this encounter
--- OUTSIDE RECORDS SUMMARY | 2023-12-04 12:44 | XMS_ITS | Encounter Summary ---
Author Organization [facility] Address [address] [place] [address] Care Team Providers Care Butcher Scullion Name Role Phone César Robert MD, Naina Primary Care Provider [phone] Reason for Visit * Reason Onset Date Comments Appointment Related 10/31/2019 Encounter Details Date Type Department Care Team (Late st Contact Info) Description 10/31/2019 Telephone [facility] Rehabilitation Therapy - [address] [phone] Therapy, Physical Appointment Related Social History Tobacco [...] occur in two business days time at [facility].. Gretchen Dietz MA 10/31/2019 14:41 documented in this encounter Plan of Treatment Not on file documented as of this encounter Visit Diagnoses Not on filedocumented in this encounter Care Teams Butcher Scullion Relationship Specialty Start Date End Date Naina Lindsey MD [address] [place] [address] PCP - General 02/13/15 documented as of this encounter
--- OUTSIDE RECORDS SUMMARY | 2023-12-04 12:44 | XMS_ITS | Encounter Summary ---
Author Organization [facility] Address [address] [place] [address] Care Team Providers Care Senior Technical Business Analyst Name Role Phone César Robert MD, Naina Primary Care Provider [phone] Reason for Visit * Reason Onset Date Comments Appointment Related 11/26/2018 Encounter Details Date Type Department Care Team (Late st Contact Info) Description 11/26/2018 Telephone [facility] Rehabilitation Therapy - [address] [phone] Therapist, Physical, PT Appointment Related Social History [...] filedocumented in this encounter Care Teams Senior Technical Business Analyst Relationship Specialty Start Date End Date Naina Lindsey MD [address] [place] [address] [place] [address] PCP - General 02/13/15 documented as of this encounter
--- OUTSIDE RECORDS SUMMARY | 2023-12-04 12:44 | XMS_ITS | Encounter Summary ---
Author Organization [facility] Address [address] [place] [address] Care Team Providers Care Inter Fold Roll Cutter Name Role Phone César Robert MD, Naina Primary Care Provider [phone] Reason for Visit * Reason Onset Date Comments Appointment Related 03/02/2019 Encounter Details Date Type Department Care Team (Late st Contact Info) Description 03/02/2019 Telephone [facility] Rehabilitation Therapy - [address] [address] Therapy, Physical Appointment Related Social History Tobacco Use Types Packs/Day Years Used Date Smoking Tobacco: Never Assessed Sex and Gender Information Value Date Recorded Sex Assigned at Not on file Gender Identity Not on file Sexual Orientation Not on file documented as of this encounter Miscellaneous Notes * Telephone Encounter - Gretchen Dietz MA - 03/02/2019 1737 EST Voicemail message left for this patient asking that she call back into the wheelchair clinic at [phone] to confirm her availability for a custom molding appointment here at [facility] with Candelaria Jaquez, PT, DPT and Ramin Samuel ATP from [employer] for Thu04/06/19, 02-05. GRETCHEN DIETZ MA 03/02/2019 15:46 documented in this encounter Plan of Treatment Not on file documented as of this encounter Visit Diagnoses Not on filedocumented in this encounter Care Teams Inter Fold Roll Cutter Relationship Specialty Start Date End Date Naina Lindsey MD [address] [place] [address] PCP - General 02/13/15 documented as of this encounter
--- OUTSIDE RECORDS SUMMARY | 2023-12-04 12:44 | XMS_ITS | Referral Summary ---
Author Organization [facility] Address [address] [place] [address] Care Team Providers Care Pit And Auxiliaries Supervisor Name Role Phone César Robert MD, Naina Primary Care Provider Encounters Date Type Department Care Team Description 12/04/2023 Lab Requisition [facility] Pathology & Laboratory Medicine - [facility] [address] [place] [address] Outr Resulting Lab, Provider from Last 3 Months Medications Medication Sig Dispensed Refills Start Date [...] 05/06/2019 To schedule or cancel appointments, call [facility] dual living providers [place]: [phone]. No additional problems on file Social History [...] of Treatment Not on file Care Teams Pit And Auxiliaries Supervisor Relationship Specialty Start Date End Date Naina Lindsey MD [address] [place] [address] PCP - General 02/13/15
--- OUTSIDE RECORDS SUMMARY | 2023-12-04 12:44 | XMS_ITS | Encounter Summary ---
Author Organization [facility] Address [facility] [place] [address] Care Team Providers Care Material Yard Clerk Name Role Phone Naina Lindsey MD Primary Care Provider [phone] Encounter Details Date Type Department Care Team (Late st Contact Info) Description 08/15/2010 7:43 AM EDT Anesthesia Event [place] [phone] Erika Curtis MD [facility] DR [place] [address] Anesthesia Record Procedure Summary Procedure Name Responsible [...] patient, father and mother. Plan discussed with COMMERCIAL LINES UNDERWRITER. documented in this encounter Miscellaneous Notes * [...] PM EST Office Visit Infectious [place] [address] Hollie Ambriz MD [facility] [place] [address] documented as of this encounter Visit Diagnoses Not on filedocumented in this encounter Care Teams Material Yard Clerk Relationship Specialty Start Date End Date Naina Lindsey MD [address] [place] [address] [place] [address] PCP - General 03/19/10 08/25/16 documented as of this encounter
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
--- OUTSIDE RECORDS SUMMARY | 2023-12-04 12:44 | XMS_ITS | Encounter Summary ---
Author Organization [facility] Address [address] [place] [address] Care Team Providers Care Powder Worker Tnt Name Role Phone César Robert MD, Naina Primary Care Provider [phone] Encounter Details Date Type Department Care Team (Late st Contact Info) Description 12/04/2023 Lab Requisition [facility] Pathology & Laboratory Medicine - [address] [address] Outr Resulting Lab, Provider Social History Tobacco [...] as of this encounter Plan of Treatment Scheduled Orders Name Type Priority Associated Diagnoses Orde r Schedule HIGH SENSITIVITY C-REACTIVE PROTEIN (CARDIOVASCULAR DISEASE) Lab Routine Ordered: 024 documented as of this encounter Visit Diagnoses Not on filedocumented in this encounter Care Teams Powder Worker Tnt Relationship Specialty Start Date End Date Naina Lindsey MD [address] [place] [address] PCP - General 02/13/15 documented as of this encounter
--- OUTSIDE RECORDS SUMMARY | 2023-12-04 12:44 | XMS_ITS | Encounter Summary ---
Author Organization [facility] Address [address] [place] [address] Care Team Providers Care Dehydrogenation Supervisor Name Role Phone César Robert MD, Naina Primary Care Provider [phone] Encounter Details Date Type Department Care Team (Late st Contact Info) Description 04/02/2021 Lab Requisition [facility] Pathology & Laboratory Medicine - [address] [id number] Outr Resulting Lab, Provider Social History Tobacco [...] Outr Resulting Lab MICROBIOLOGY - GENERAL ORDERABLES [facility] [address] [place] [address] * COVID-19 TESTING (04/02/2021 10:55 EST) COVID-19 rt-PCR Result Negative Negative 04/03/2021 14:[address] [facility] Comment: This test has not [...] performed using the eve SARS-CoV-2 assay ([employer] on the Eve 6800 System Performing Lab Eve [address] [facility] Lab 04/03/2021 14:[address] [facility] Swab 04/02/2021 10:5 5 EST 04/02/2021 22:22 EST Provider Outr Resulting Lab MICROBIOLOGY - GENERAL ORDERABLES [facility] [address] [place] [address] documented in this encounter Visit Diagnoses Not on filedocumented in this encounter Care Teams Dehydrogenation Supervisor Relationship Specialty Start Date End Date Naina Lindsey MD [address] [place] [address] [place] [address] PCP - General 02/13/15 documented as of this encounter
--- OUTSIDE RECORDS SUMMARY | 2023-12-04 12:44 | XMS_ITS | Encounter Summary ---
Author Organization [facility] Address [address] [place] [address] Care Team Providers Care Environmental Monitoring Specialist Name Role Phone César Robert MD, Naina Primary Care Provider [phone] Encounter Details Date Type Department Care Team (Latest Contact Info) Description 08/24/2018 17:22 EDT - 08/24/2018 23:59 EDT Hospital Encounter [address] [address] Unknown, Provider, Discharge Disposition: Home or Self [...] Code Departure Means Destination Home or Self Skilled Nursing documented in this encounter Plan of Treatment Not on file documented as of this encounter Visit Diagnoses Not on filedocumented in this encounter Care Teams Environmental Monitoring Specialist Relationship Specialty Start Date End Date Naina Lindsey MD [address] [place] [address] [place] [address] PCP - General 02/13/15 documented as of this encounter
--- OUTSIDE RECORDS SUMMARY | 2023-12-04 12:44 | XMS_ITS | Encounter Summary ---
Author Organization [facility] Address [address] [place] [address] Care Team Providers Care Supervisor Rework Name Role Phone César Robert MD, Naina Primary Care Provider [phone] Reason for Visit * Reason Onset Date Comments Appointment Related 04/04/2019 Encounter Details Date Type Department Care Team (Late st Contact Info) Description 04/04/2019 Telephone [facility] Rehabilitation Therapy - [address] [id number] Therapy, Physical Appointment Related Social History Tobacco [...] filedocumented in this encounter Care Teams Supervisor Rework Relationship Specialty Start Date End Date Naina Lindsey MD [address] [place], [place] [id number] PCP - General 02/13/15 documented as of this encounter
--- OUTSIDE RECORDS SUMMARY | 2023-12-04 12:44 | XMS_ITS | Encounter Summary ---
Author Organization [facility] Address [address] [place] [address] Care Team Providers Care Yard Inspector Name Role Phone César Robert MD, Naina Primary Care Provider [phone] Encounter Details Date Type Department Care Team [...] Outpatient Rehab Plan of Care REHABILITATION THERAPIES [facility] REHABILITATION THERAPY - [address] [address] Physical Therapy Progress Note Date of Service: [...] verbalized understanding Team Communication: MYA Pleitez from [facility] and two of Tana's caregivers were present and participated in this entire visit. A: The custom mold was created for Tana's new custom seating system. 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 Commutator Undercutter Goals: 8 weeks Will have a wheeled [...] Cc: Referring Provider: LIZETH Sandoval ATP from [facility] Rehabilitation Therapies [facility] Fax: [phone] WHEELCHAIR PRESCRIPTION 05/06/2019 Tana Cavazos 1995 [address] [place] [address] (home) [phone] (work) Insurance Policy Number 1. [place] Medicaid ACO [id number] Medical/Surgical History: Current: There is no problem [...] elbow (90 degrees)-n/a Component Wheelchair Description Justification Supervisor Livestock Yard, style and model USE EXISTING WHEELCHAIR Chair [...] on the mold. ?? Incontinent cover ?? [place] headrest mounting plate ?? [place] headrest mount ?? To accommodate .Tana's fixed [...] Referring Provider: Lorna Bal NP Funding at [facility] Plan ATTENDING PHYSICIAN: Your [...] on filedocumented in this encounter Care Teams Yard Inspector Relationship Specialty Start Date End Date Naina Lindsey MD [address] [place] [address] PCP - General 02/13/15 documented as of this encounter
--- OUTSIDE RECORDS SUMMARY | 2023-12-04 12:44 | XMS_ITS | Encounter Summary ---
Author Organization [facility] Address [address] [place] [address] Care Team Providers Care Milk Pickup Truck Driver Name Role Phone César Robert MD, Naina Primary Care Provider [phone] Reason for Visit * Reason Onset Date Comments Appointment Related 05/04/2019 Encounter Details Date Type Department Care Team (Late st Contact Info) Description 05/04/2019 Telephone [facility] Rehabilitation Therapy - [address] [phone] Therapy, Physical Appointment Related Social History Tobacco [...] on filedocumented in this encounter Care Teams Milk Pickup Truck Driver Relationship Specialty Start Date End Date Naina Lindsey MD [address] [place] [address] PCP - General 02/13/15 documented as of this encounter
--- OUTSIDE RECORDS SUMMARY | 2023-12-04 12:44 | XMS_ITS | Clinical Summary ---
Author Organization [facility] Address [address] [place] [address] Care Team Providers Care Stuffed Casing Tier Name Role Phone César Robert MD, Naina Primary Care Provider [phone] Medications Medication Sig Dispensed Refills Start Date [...] appointments, call Tana's dual living providers [facility]ita: [phone]. No additional problems on file Encounters Date Type Department Care Team Description 12/04/2023 Lab Requisition [facility] - [facility] [address] [place] [address] Outr Resulting Lab, Provider from Last 3 Months Surgical History Surgery Date Site/Laterality Comments SPINAL [...] - 19+ 3-dose series) 06/18 COVID-19 Vaccine (2022- season) 2022 Care Teams Stuffed Casing Tier Relationship Specialty Start Date End Date Naina Lindsey MD [address] [place] [address] PCP - General 02/13/15
--- OUTSIDE RECORDS SUMMARY | 2023-12-04 12:44 | XMS_ITS | Encounter Summary ---
Author Organization [facility] Address [address] [place] [address] Care Team Providers Care Dye Range Feeder Name Role Phone César Robert MD, Naina Primary Care Provider [phone] Reason for Visit * Reason Onset Date Comments Appointment Related 04/13/2019 Encounter Details Date Type Department Care Team (Late st Contact Info) Description 04/13/2019 Telephone [facility] Rehabilitation Therapy - [address] [phone] Therapy, Physical Appointment Related Social History Tobacco [...] erickson Cristobal upcoming wheelchair appointment here at [facility] on 05/06 from 2-4. She confirmed they were available for the date/time. Gretchen Dietz MA 04/13/2019 15:19 documented in this encounter Plan of Treatment Not on file documented as of this encounter Visit Diagnoses Not on filedocumented in this encounter Care Teams Dye Range Feeder Relationship Specialty Start Date End Date Naina Lindsey MD [address] [place] [address] [place], [place] [id number] PCP - General 02/13/15 documented as of this encounter
--- OUTSIDE RECORDS SUMMARY | 2023-12-04 12:44 | XMS_ITS | Encounter Summary ---
Author Organization [facility] Address [address] [place] [address] Care Team Providers Care Speeder Hand Name Role Phone César Robert MD, Naina Primary Care Provider [phone] Reason for Visit * Reason Onset Date Comments Appointment Related 10/25/2019 Encounter Details Date Type Department Care Team (Late st Contact Info) Description 10/25/2019 Telephone [facility] Rehabilitation Therapy - [address] [phone] Therapy, Physical Appointment Related Social History Tobacco [...] wheelchair clinic appointment, to occur tomorrow at [facility]. They confirmed their availability for this date/time. Gretchen Dietz MA 10/25/2019 15:15 documented in this encounter Plan of Treatment Not on file documented as of this encounter Visit Diagnoses Not on filedocumented in this encounter Care Teams Speeder Hand Relationship Specialty Start Date End Date Naina Lindsey MD [address] [place], [place] [address] PCP - General 02/13/15 documented as of this encounter
--- OUTSIDE RECORDS SUMMARY | 2023-12-04 12:45 | XMS_ITS | Encounter Summary ---
Author Organization [facility] Address [address] [place] [address] Care Team Providers Care Case Management Specialist Name Role Phone César Robert MD, Naina Primary Care Provider [phone] Reason for Visit * Reason Onset Date Comments Other 04/03/2015 Encounter Details Date Type Department Care Team (Late st Contact Info) Description 04/03/2015 Telephone [facility] Rehabilitation Therapy - [facility] [address] [place], [place] [phone] Candelaria Jaquez, PT [address] [place] [address] Other Social History Tobacco Use [...] on filedocumented in this encounter Care Teams Case Management Specialist Relationship Specialty Start Date End Date Naina Lindsey MD [address] [place], [place] [phone] PCP - General 02/13/15 documented as of this encounter
--- OUTSIDE RECORDS SUMMARY | 2023-12-04 12:45 | XMS_ITS | Encounter Summary ---
Author Organization [facility] Address [address] [place] [address] Care Team Providers Care Dipping Machine Operator Name Role Phone César Robert MD, Naina Primary Care Provider [phone] Reason for Visit * Reason Onset Date Comments Appointment Related 07/20/2015 Encounter Details Date Type Department Care Team (Late st Contact Info) Description 07/20/2015 Telephone [facility] Rehabilitation Therapy - [address] [phone] Therapy, Outpatient, Appointment Related Social History Tobacco [...] on filedocumented in this encounter Care Teams Dipping Machine Operator Relationship Specialty Start Date End Date Naina Lindsey MD [address] [place] [address] PCP - General 02/13/15 documented as of this encounter
--- OUTSIDE RECORDS SUMMARY | 2023-12-04 12:45 | XMS_ITS | Encounter Summary ---
Author Organization [facility] Address [address] [place] [address] Care Team Providers Care Telegraph Printer Mechanic Name Role Phone César Robert MD, Naina Primary Care Provider [phone] Reason for Visit * Reason Onset Date Comments Appointment Related 03/01/2015 Encounter Details Date Type Department Care Team (Late st Contact Info) Description 03/01/[address] [facility] Rehabilitation Therapy - [address] [phone] Therapy, Outpatient, Appointment Related Social History Tobacco [...] meeting by Candelaria Jaquez PT and Phyllis Whimtan CCC-HAND TUBE BENDER : Phyllis indicates she may need to do a Speech Language Evaluation for this patient. I have called and relayed this information to the patient's mother : Patient is part of the [facility] - being seen by their Speech Language Pathologists : Zina Thomas and Osman Rodriguez. Per Phyllis's: HAND TUBE BENDER notes need to be obtained so that she can determine the length/scope of the patient's SLE appointment so that it may be properly scheduled. I will contact the [employer] to request these records. documented in this encounter Plan of Treatment Not on file documented as of this encounter Visit Diagnoses Not on filedocumented in this encounter Care Teams Telegraph Printer Mechanic Relationship Specialty Start Date End Date Naina Lindsey MD [address] [place] [address] PCP - General 02/13/15 documented as of this encounter
--- OUTSIDE RECORDS SUMMARY | 2023-12-04 12:45 | XMS_ITS | Encounter Summary ---
Author Organization [facility] Address [address] [place] [address] Care Team Providers Care Oracle Business Analyst Name Role Phone César Robert MD, Naina Primary Care Provider [phone] Reason for Visit * Reason Onset Date Comments Appointment Related 02/13/2015 Encounter Details Date Type Department Care Team (Late st Contact Info) Description 02/13/2015 Telephone [facility] Rehabilitation Therapy - [address] [address] Therapy, Outpatient, Appointment Related Social History Tobacco Use Types Packs/Day Years Used Date Smoking Tobacco: Never Assessed Sex and Gender Information Value Date Recorded Sex Assigned at Not on file Gender Identity Not on file Sexual Orientation Not on file documented as of this encounter Miscellaneous Notes * Telephone Encounter - Mile Ronquillo - 02/13/2015 1102 EDT [facility] [address] [address] Person providing information? Mother Guardian: Mother Phone number: [phone] 1. Who recommended that you be seen [...] device? Smart Talk Who prescribed/acquired for you? [place] [employer] project -through the school 24. Do you have any other requests, comments, questions you would like to add prior to your appt? Smart talk needs to work with chair better 25. To whom should we send an additional questionnaire (if needed)? -- [facility] - [address] [address] Telephone Intake Information for Scheduling NEW Patients [...] 30 total therapy visits (PT, OT, and COMPUTER GAME DESIGNER combined) between 04-27-14 and 04-26-15. If the patient has exceeded 30 visits already, further therapy will not be covered by their insurance. Date: Tuesday April 07, 2015 Therapist: Candelaria Jaquez, PT @ 1:15 Location: [facility] Name of Supplier: [employer] Name of Rep: Ramin @ 1:45 Reason For Appt: manual Vs. Power Pressure Mapping? no Mile Ronquillo documented in this encounter Plan of Treatment Not on file documented as of this encounter Visit Diagnoses Not on filedocumented in this encounter Care Teams Oracle Business Analyst Relationship Specialty Start Date End Date Naina Lindsey MD [address] [place] [address] PCP - General 02/13/15 documented as of this encounter
--- OUTSIDE RECORDS SUMMARY | 2023-12-04 12:45 | XMS_ITS | Encounter Summary ---
Author Organization [facility] Address [address] [place] [address] Care Team Providers Care Section Chief Name Role Phone César Robert MD, Naina Primary Care Provider [phone] Reason for Visit * Reason Onset Date Comments Appointment Related 05/14/2015 Encounter Details Date Type Department Care Team (Late st Contact Info) Description 05/14/2015 Telephone [facility] Rehabilitation Therapy - [address] [phone] Therapy, Outpatient, Appointment Related Social History Tobacco [...] on filedocumented in this encounter Care Teams Section Chief Relationship Specialty Start Date End Date Naina Lindsey [place] [address] PCP - General 02/13/15 documented as of this encounter
--- OUTSIDE RECORDS SUMMARY | 2023-12-04 12:45 | XMS_ITS | Encounter Summary ---
Author Organization [facility] Address [address] [place] [address] Care Team Providers Care Marine Propulsion Technician Name Role Phone César Robert MD, Naina Primary Care Provider [phone] Encounter Details Date Type Department Care Team (Latest Contact Info) Description 12/04/2015 19:02 EDT - 12/04/2015 23:59 EDT Hospital Encounter [facility] [address] [place] [address] Leonid Candelaria, PT [address] [place] [phone] Andrade Lux [place] [address] [facility] [address] [phone] Naina Lindsey MD [address] [place], [place] [address] Discharge Disposition: Auto Discharge Social History Tobacco [...] filedocumented in this encounter Care Teams Marine Propulsion Technician Relationship Specialty Start Date End Date Naina Lindsey MD [address] [place] [address] PCP - General 02/13/15 documented as of this encounter
--- OUTSIDE RECORDS SUMMARY | 2023-12-04 12:45 | XMS_ITS | Encounter Summary ---
Author Organization [facility] Address [address] [place] [address] Care Team Providers Care Petrologist Name Role Phone César Robert MD, Naina Primary Care Provider [phone] Encounter Details Date Type Department Care Team (Latest Contact Info) Description 05/29/2015 17:07 EST - 05/29/2015 23:59 EST Hospital Encounter [address] [address] Naina Lindsey MD [address] [place], [place] [address] Discharge Disposition: Home or Self Care Social [...] MD [address] [address] PCP - General 02/13/15 documented as of this encounter
--- OUTSIDE RECORDS SUMMARY | 2023-12-04 12:45 | XMS_ITS | Encounter Summary ---
Author Organization [facility] Address [address] [place] [address] Care Team Providers Care Passenger Tire Builder Name Role Phone César Robert MD, Naina Primary Care Provider [phone] Reason for Visit * Reason Onset Date Comments Appointment Related 05/25/2015 Encounter Details Date Type Department Care Team (Late st Contact Info) Description 05/25/2015 Telephone [facility] Rehabilitation Therapy - [address] [phone] Therapy, Outpatient, Appointment Related Social History Tobacco [...] on filedocumented in this encounter Care Teams Passenger Tire Builder Relationship Specialty Start Date End Date Naina Lindsey MD [address] [place] [address] PCP - General 02/13/15 documented as of this encounter
--- OUTSIDE RECORDS SUMMARY | 2023-12-04 12:45 | XMS_ITS | Encounter Summary ---
Author Organization [facility] Address [address] [place] [address] Care Team Providers Care Hydroelectric Powerplant Supervisor Name Role Phone César Robert MD, Naina Primary Care Provider [phone] Encounter Details Date Type Department Care Team (Latest Contact Info) Description 07/24/2015 12:40 EDT - 07/24/2015 23:59 EDT Hospital Encounter [address] [address] Naina Lindsey MD [address] [place], [place] [address] Discharge Disposition: Auto Discharge Social History Tobacco [...] on filedocumented in this encounter Care Teams Hydroelectric Powerplant Supervisor Relationship Specialty Start Date End Date Naina Lindsey MD [address] [place] [address] PCP - General 02/13/15 documented as of this encounter
--- OUTSIDE RECORDS SUMMARY | 2023-12-04 12:45 | XMS_ITS | Encounter Summary ---
Author Organization [facility] Address [address] [place] [address] Care Team Providers Care Business Development Associate Name Role Phone César Robert MD, Naina Primary Care Provider [phone] Reason for Visit * Reason Onset Date Comments Appointment Related 11/30/2015 Encounter Details Date Type Department Care Team (Late st Contact Info) Description 11/30/2015 Telephone [facility] Rehabilitation Therapy - [address] [address] Therapy, Outpatient, Appointment Related Social History Tobacco [...] filedocumented in this encounter Care Teams Business Development Associate Relationship Specialty Start Date End Date Naina Lindsey MD [address] [place] [address] PCP - General 02/13/15 documented as of this encounter
--- OUTSIDE RECORDS SUMMARY | 2023-12-04 12:45 | XMS_ITS | Encounter Summary ---
Author Organization [facility] Address [address] [place] [address] Care Team Providers Care Financial Aid Coordinator Name Role Phone César Robert MD, Naina Primary Care Provider [phone] Reason for Visit * Reason Onset Date Comments Appointment Related 05/14/2015 Encounter Details Date Type Department Care Team (Late st Contact Info) Description 05/14/2015 Telephone [facility] Rehabilitation Therapy - [facility] [address] [place] [address] Therapy, Outpatient, Appointment Related Social [...] the original note were not included. 0 [facility]; [place] [address] May 14, 2015 Dear Javed; Per our conversation, Tana has been scheduled to be seen by the [facility] Wheelchair Assessment Team for an additional power chair evaluation. Your appointment will last for approximately 3 hours and is scheduled for: Date: Friday July 10, 2015 Time: 12:30 Place: [facility] [address] [place] [id number] The evaluation team will include the following people: [facility] Rehabilitation Physical Therapist: Candelaria Jaquez PT Medical Supplier Mechanical Planner: Ramin from [employer] Please call to pre-register with [facility] prior to your appointment at [phone]. During the evaluation, we would like to [...] unable to make your appointment please call [phone]. *48-hour notice is required for cancellation.* We look forward to seeing you. Mile Ronquillo [facility] Rehabilitation Therapy Center [facility] documented in this encounter Plan of Treatment Not on file documented as of this encounter Visit Diagnoses Not on filedocumented in this encounter Care Teams Financial Aid Coordinator Relationship Specialty Start Date End Date Naina Lindsey MD [address] [place] [address] PCP - General 02/13/15 documented as of this encounter
--- OUTSIDE RECORDS SUMMARY | 2023-12-04 12:45 | XMS_ITS | Encounter Summary ---
Author Organization [facility] Address [address] [place] [address] Care Team Providers Care Rouge Miller Name Role Phone César Robert MD, Naina Primary Care Provider [phone] Reason for Visit * Reason Onset Date Comments Appointment Related 03/01/2015 Encounter Details Date Type Department Care Team (Late st Contact Info) Description 03/01/2015 Telephone [facility] Rehabilitation Therapy - [address] [phone] Therapy, Outpatient, Appointment Related Social History Tobacco [...] chair. 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 Spoke with patient's student aid from [employer], Mesha Espinal. She indicates that the bracket that holds the Smart Talk device hits every door frame that they go through, and would like this remedied. Mesha states that there are no unmet DYE MACHINE OPERATOR needs at this time. I indicated to Mesha that Candelaria Jaquez PT should be able to address this need at the patient's Wheelchair Clinic appointment on 04/07/15. documented in this encounter Plan of Treatment Not on file documented as of this encounter Visit Diagnoses Not on filedocumented in this encounter Care Teams Rouge Miller Relationship Specialty Start Date End Date Naina Lindsey MD [address] [place] [address] PCP - General 02/13/15 documented as of this encounter
--- OUTSIDE RECORDS SUMMARY | 2023-12-04 12:45 | XMS_ITS | Encounter Summary ---
Author Organization [facility] Address [address] [place] [address] Care Team Providers Care Occupational Therapist Assistants Name Role Phone César Robert MD, Naina Primary Care Provider [phone] Reason for Visit * Reason Onset Date Comments Appointment Related 03/30/2015 Encounter Details Date Type Department Care Team (Late st Contact Info) Description 03/30/2015 Telephone [facility] Rehabilitation Therapy - [address] [address] Therapy, Outpatient, Appointment Related Social History Tobacco [...] on filedocumented in this encounter Care Teams Occupational Therapist Assistants Relationship Specialty Start Date End Date Naina Lindsey MD [address] [place] [address] [place] [address] PCP - General 02/13/15 documented as of this encounter
--- OUTSIDE RECORDS SUMMARY | 2023-12-04 12:45 | XMS_ITS | Encounter Summary ---
Author Organization [facility] Address [address] [place] [address] Care Team Providers Care Transport Operations Inspector Name Role Phone César Robert MD, Naina Primary Care Provider Encounter Details Date Type Department Care Team (Latest Contact Info) Description 04/03/2015 9:31 EST - 04/03/2015 23:59 EST Hospital Encounter [address] [address] Naina Lindsey MD [address] [place], [place] [phone] Discharge Disposition: Home or Self Care Social [...] on filedocumented in this encounter Care Teams Transport Operations Inspector Relationship Specialty Start Date End Date Naina Lindsey MD [address] [facility] [place] [address] PCP - General 02/13/15 documented as of this encounter
[2023-12-04 18:08] LABS: CRP, High Sensitivity >15.00 mg/L (See Note)
== END 2023-12-04 12:32 | disposition home or self-care (01) ==
LOC: NCHCN 12:31
PROVIDERS: PCP Nurse Practitioner Family; Visit Provider Nurse Practitioner Family
DX: L02.818 Cutaneous abscess of other sites (principal); R79.82 Elevated C-reactive protein (CRP); M86.48 Chronic osteomyelitis with draining sinus, other site; Q67.5 Congenital deformity of spine
CPT/HCPCS: 80053; 86141; 85025

== ENCOUNTER 2023-12-07 15:11 | Outpatient (REF) | payer MEDICAID, SELFPAY ==
--- OUTSIDE RECORDS SUMMARY | 2023-12-07 15:19 | XMS_ITS | Encounter Summary ---
Author Organization [facility] Address [facility] [place] [address] Care Team Providers Care Office Assistant Receptionist Name Role Phone Lorna Bal APRN Primary Care Provider [phone] Encounter Details Date Type Department Care Team (Latest Contact Info) Description 12/03/2023 Travel Social History Tobacco Use Types Packs/Day Years Used Date Smoking Tobacco: Never Passive Smoke Exposure: Never Smokeless Tobacco: Never Comments:NO SMOKERS IN THE H OME Alcohol Use Standard Drinks/Week Comments No 0 (1 standard drink = 0.6 oz pur e alcohol) [facility] Utilities Answer Date Recorded In the past 12 months has e [employer], gas, oil, or water [facility] threatened to shut off services in your [...] were you homeless or living in a assisted (including now)? No 10/29/2023 IPV Inpatient Questions [...] PM EST Office [place] [address] Hollie Ambriz MD [facility] [place] [address] documented as of this encounter Visit Diagnoses Not on filedocumented in this encounter Care Teams Office Assistant Receptionist Relationship Specialty Start Date End Date Lorna Bal APRN [address] [place] [address] PCP - General Family Medicine 05/27/18 documented as of this encounter
--- OUTSIDE RECORDS SUMMARY | 2023-12-07 15:19 | XMS_ITS | Continuity of Care Document ---
Author Organization [facility] Address [address] [place] [address] Assessment Encounter Date Assessment Date Assessment LastModified by Organization Details LastModified Time 11/10/2023 11/10/2023 The total time devoted to today's encounter, including both the yccu-ox-htxd time with the patient and/or family/caregiv er and wcw-kkzr-fc-fa ce time I personally spent is 35 minutes. Hospital admission: 7.3.204 Hospital discharge 7.9.24. Chronic health careers instructor reach out 7.10.24 FU in office: 7.16.24 Complexity: high Follow-up in 6 weeks. Call or RTO sooner if needs arise. Not available 11/10/2023 10:35:50 Plan of Treatment Reminders Order Date Submit Date Provider Last Modified By Organization Details Last Modified Time Details Appointments Follow Up 30 2023 10:30A M Not available Not available Not available Lab None recorded. Referral None recorded. Procedures None recorded. Surgeries None recorded. Imaging None recorded. Medication Orders Debrox 6.5 % ear drops 2023 024 LANI [facility] [place], [address], 11/10/2023 10:38:18 cholecalc iferol (vitamin D3) 125 mcg (5,000 unit) tablet 2023 024 [facility] [place], [address], 11/10/2023 11:06:20 baclofen 15 mg tablet 2023 024 [facility] [place], [address], 11/10/2023 10:38:17 Patient TargetsNo targets recorded. Patient [...] Type: ICD-10; LORNA MARTINEZ APRN [address], [place], [address] , [place] - [facility] 06:06:35 Tetraplegia Active 201609/02/2018 - Comments only - Lorna Martinez [address] - with cognitive dysfunction, scoliosis, spasticity, hypotnoia, [...] them since not able to get through [facility]. Needs new TLSO for her back, current [...] Problem Code Type: ICD-10; [address], [facility] [address] , [facility] 3 06:06:34 Scoliosis deformity of spine Active 2016 Problem Code: M41.9; Problem Code Type: ICD-10; [address], [facility] [address] , [facility] 3 06:06:35 Spasm Active 201603/02/2017 - Comments only - Emelyn Easley MD - Patient will need on going physical therapy to help prevent worsening spasticity and contractures. Problem Code: R25.2; Problem Code Type: ICD-10; [address], [place], [address] , [facility] 3 06:06:35 Idiopathic urticaria Active 2016 Problem Code: L50.1; Problem Code Type: ICD-10; [address], [facility] [address] , [facility] 3 06:06:35 Supraventricu lar tachycardia Active 201606/08/2017 - Comments only - Lorna Martinez APRN - monitor for now. Problem Code: I47.1; Problem Code Type: ICD-10; [address], [place], [address] , [facility] 3 06:06:35 Traumatic or non-traumatic injury Active 2016 Problem Code: T14.90; Problem Code Type: ICD-10; [address], [place], [address] , [facility] 3 06:06:35 Disorder of muscle Active 201610/20/2016 - Comments only - Emelyn Easley MD - This causes some constipation that has been improved by miralax. Problem Code: M62.9; Problem Code Type: ICD-10; LORNA MARTINEZ APRN [address], [place], [address] , [facility] 3 06:06:35 Adult health examination Active 201610/20/2016 [...] ICD-10; LORNA MARTINEZ APRN [address], [place], [address] , [facility] 3 06:06:35 Impacted cerumen of bilateral ears Completed 201609/29/2016 09/15/2016 - Comments only - Jade Arevalo MEDICAL INTERPRETER - Rev'd procedure for cerumen removal using [...] H61.23; Problem Code Type: ICD-10; Not Available [facility] 3 03:53:19 Impacted cerumen Active 201612/03/2016 - Comments only - Jade Arevalo MEDICAL INTERPRETER - - Cerumen not impacted today. Recommended to continue regular checks at future visits, discussed appropriate ear hygiene, and advised f/u for development of symptoms such as ear pulling/pain or trouble hearing. The patient verbalized understanding and agreement to this care plan. Problem Code: H61.20; Problem Code Type: ICD-10; [address], [place], [address] , [facility] 3 06:06:35 Pre-surgery evaluation Completed 201601/09/2017 12/26/2016 - Comments only - Jade Arevalo MEDICAL INTERPRETER - - Pt presents for pre-op physical as she is having a DEX[facility] scan on 12/30 at [facility] and they have requested that she has a physical within the last 30 days. There are no concerns raised by her aid who is with her, and no findings on exam that suggest she should not move forward with procedure as scheduled. Problem Code: Z01.818; Problem Code Type: ICD-10; Not Available [facility] 3 03:53:19 Contracture of joint of hand Active 201606/08/2017 - Comments only - Lorna Martinez APRN - continue wearing splint during the day. Wash cloth in her hand while sleeping. Continue with routine stretching and movement as able. Problem Code: M24.549; Problem Code Type: ICD-10; [address], [place], [address] , [facility] 3 06:06:35 History of skin and/or subcutaneous tissue disease Active 201706/08/2017 - Comments only - Lorna Martinez APRN - has seen podiatry. Monitor feet routinely. Problem Code: Z87.2; Problem Code Type: ICD-10; [address], [place], [address] , [facility] 3 06:06:35 Disorder of tooth development Completed 201703/11/2018 Problem Code: K00.9; Problem Code Type: ICD-10; Not Available [facility] 3 03:53:19 Exposure to communicable disease Completed 202004/03/2021 Problem Code: Z20.828; Problem Code Type: ICD-10; Not Available [facility] 3 03:53:20 Localized eruption of skin Completed 202112/08/2021 Problem Code: R21; Problem Code Type: ICD-10; Not Available [facility] 3 03:53:20 Disorder of skin appendage Completed 202112/08/2021 Problem Code: L73.9; Problem Code Type: ICD-10; Not Available [facility] 3 03:53:20 Sepsis caused by Escherichia coli Active 202208/07/2022 - Comments only - Lorna Martinez APRN - continue mgmt through specialist. Blood drawn, may not be enough of sample but will send. If not enough, will need to come to office. drawn CBCD, CRP, CMP. Problem Code: A41.51; Problem Code Type: ICD-10; [address], [facility] [address] , [facility] 3 06:06:35 Constipation Active 2022 Problem Code: K59.00; Problem Code Type: ICD-10; [address], [address] 3 06:06:35 Spinal cord abscess Active [address], [address] 3 06:06:35 High enzyme level in serum Active 2022 Problem Code: R74.8; Problem Code Type: ICD-10; [address], [facility] [address] , [facility] 3 06:06:35 Anemia Active 2022 Problem Code: D64.9; Problem Code Type: ICD-10; [address], [facility] [address] , [facility] 3 06:06:35 Vitamin D deficiency Active 2022 4.4.24- After completes current HD vitamin D she is to change to vitamin D 5000 IU once a day [address], [place], [address] , [facility] 4 07:57:05 Osteomyelitis Active 2022 Problem Code: M86.9; Problem Code Type: ICD-10; [address], [address] 3 06:06:35 Congenital deformity of spine Active 2022 Problem Code: Q67.5; Problem Code Type: ICD-10; [address], [facility] [address] , [facility] 3 06:06:35 Chronic osteomyelitis with draining sinus Active 2022 Problem Code: M86.48; Problem Code Type: ICD-10; [address], [facility] [address] , [facility] 3 06:06:35 Fever Completed 202011/07/2021 Problem Code: R50.9; Problem Code Type: ICD-10; Not Available [facility] 3 03:53:22 Pain of toe of left foot Completed 201603/02/2017 Problem Code: M79.675; Problem Code Type: ICD-10; Not Available [facility] 3 03:53:23 Tinea pedis Completed 201607/17/2020 Problem Code: B35.3; Problem Code Type: ICD-10; Not Available [facility] 3 03:53:23 Device in situ Completed 201609/02/2018 Problem Code: Z97.8; Problem Code Type: ICD-10; Not Available [facility] 3 03:53:24 Closed fracture of lower leg Completed 201607/17/2020 Problem Code: S82.90xD; Problem Code Type: ICD-10; Not Available [facility] 3 03:53:27 Pain of right wrist Completed 202011/07/2021 Problem Code: M25.531; Problem Code Type: ICD-10; Not Available [facility] 3 03:53:27 Disorder of skin and/or subcutaneous tissue Completed 201807/17/2020 Problem Code: L98.9; Problem Code Type: ICD-10; Not Available [facility] 3 03:53:28 Pain in right hip joint Completed 202011/07/2021 Problem Code: M25.551; Problem Code Type: ICD-10; Not Available [facility] 3 03:53:30 Muscle pain Completed 202011/07/2021 Problem Code: M79.10; Problem Code Type: ICD-10; Not Available [facility] 3 03:53:32 Pain in right lower limb Completed 201607/17/2020 Problem Code: M79.604; Problem Code Type: ICD-10; Not Available [facility] 3 03:53:32 Vaccine adverse reaction Completed 201911/07/2021 Not Available [facility] 3 03:53:33 Chronic ulcer of foot Completed 201707/17/2020 Problem Code: L97.529; Problem Code Type: ICD-10; Not Available [facility] 3 03:53:33 Accidental fall Completed 201807/17/2020 Not Available [facility] 3 03:53:34 Cellulitis of toe Completed 201605/08/2017 Problem Code: L03.039; Problem Code Type: ICD-10; Not Available [facility] 3 03:53:35 Pre-surgery evaluation Completed 202202/22/2023 Problem Code: Z01.818; Problem Code Type: ICD-10; Not Available [facility] 4 05:38:03 Intertrigo Active 2023 Martha Lopez RN [facility] [place], [facility] 4 09:39:19 Thrombocytosi s Active 2023 LORNA MARTINEZ APRN [address], [facility] [address] [place] [address] 4 21:17:57 Impacted cerumen Active 2023 LORNA MARTINEZ APRN [address], [facility] [address] [place] [address] 4 10:33:20 Notes:*Problem Name: Oliguri a and anuria *Problem Status: active *Comments: *Problem Code: R34 *Problem Code Type: ICD-10 *Note Date: 03/04/2018 Problem Notes None recorded. Medical Equipment None Reported. Allergies Allergen ID Allergen Name Allergen Category Reaction Reaction Severity Criticality Documentation Date Start Date Code Code System Note Provider Name and Address Organization Details Recorded Time 93027 fluoxetin e hydrochlo ride medicatio n other mild Not available 03/06/20232018 23139 4 RxNorm unsur e Aller gyRea ction : 'unsu re'; Not Available [facility] 3 16:14:36 31730 doxycycli ne Not available rash severe Not available 03/06/20232022 3640 RxNorm Aller gyRea ction : 'Rash , Gastr ointe avelino l,'; Not Available [facility] 3 16:14:36 Medications Name Sig Start Date Stop Date Status Note LastModified by Organization Details LastModified Time acetamino phen 325 mg tablet Take 3 tablet by mouth every eight hours as needed active Per [facility] d/c summary 02/25/23 Not Available Not Available [...] eight hours as needed 07/23 completed Per [facility] d/c summary 02/25/23 Not Available Not Available [...] daily to affected area 07/23 completed Per [facility] d/c summary 02/25/23 Not Available Not Available [...] Not Available nystatin 100,000 unit/gram topical cream Apply 1 a small amount to affected area twice a day to madonna-are a; apply BID until resolved 2023 active On Hold for now Not Available Not Available Not Available cephalexi [...] Available Not Available nystatin 100,000 unit/gram topical powder APPLY TO [...] three times a day 09/27 completed last [facility] Infectio us note stated Bactrim DS 800-160m g 1 BID Not Available Not Available Not Available sodium chloride 0.9 % (flush) injection syringe Infuse 10ml into venous catheter 2 times a day 07/23 completed Per [facility] d/c summary 02/25/23 Not Available Not Available Not Available ceftriaxo ne 2 gram/50 mL in dextrose (iso-osm) intraveno us piggyback Infuse 2 gram intraven ously once a day Infuse 50ml (2g total) into a venous catheter daily 07/23 completed Per [facility] d/c summary 02/25/23 Not Available Not Available Not Available cranberry 1 gummy daily active Not Available Not Available No t Available iron 1 gummy daily active Not Available Not Available No t Available Bactrim DS 1 tablet twice a day for oral step down. 2023 active Infectio us Disease Not Available Not Available Not Available cephalexi n 2gm with Heparin and [...] 12 patch free hours) 07/23 completed Per [facility] d/c summary 02/25/23 Not Available Not Available [...] Updated DateTime 4 157.48 cm 22.6 kg/m2 03764.9 6 g 97.9 [degF] 97 % 97 % 110 /min 98 mm[Hg] 64 mm[Hg] YOGESH [facility] 10:12:40 Social History None recorded. Functional Status [...] Recorded Time MMR 09/16/1994 completed Not Available [facility] 03:50:44 MMR 03/20/1998 completed Not Available [facility] 03:50:45 DTaP, unspecified formulation 05/15/1994 completed Not Available [facility] 03/06/2023 03:50:45 DTaP, unspecified formulation 1993 completed Not Available [facility] 03/06/2023 03:50:45 DTaP, unspecified formulation 1993 completed Not Available [facility] 03/06/2023 03:50:45 DTaP, unspecified formulation 03/07/1994 completed Not Available [facility] 03/06/2023 03:50:45 DTaP, unspecified formulation 03/20/1998 completed Not Available [facility] 03/06/2023 03:50:45 meningococcal ACWY, unspecified formulation 09/15/2011 completed Not Available [facility] 03/06/2023 03:50:46 Td (adult), 5 Lf tetanus toxoid, preservative free, adsorbed 10/20/2016 completed Not Available [facility] 03/06/2023 03:50:46 Tdap 10/22/2018 completed Not Available [facility] 03:50:46 Tdap 11/24/2006 completed Not Available [facility] 03:50:46 Influenza, split virus, quadrivalent, PF 01/15/2021 completed Not Available [facility] 03/06/2023 03:50:47 Influenza, split virus, quadrivalent, PF 02/17/2022 completed Not Available [facility] 03/06/2023 03:50:47 Influenza, split virus, quadrivalent, PF 02/28/2019 completed Not Available [facility] 03/06/2023 03:50:48 Influenza, split virus, quadrivalent, PF 04/02/2020 completed Not Available [facility] 03/06/2023 03:50:48 Influenza, split virus, quadrivalent, preservative 03/02/2017 completed Not Available [facility] 03/06/2023 03:50:48 Influenza, split virus, quadrivalent, preservative 03/04/2018 completed Not Available [facility] 03/06/2023 03:50:48 Hib, unspecified formulation 1993 completed Not Available [facility] 03/06/2023 03:50:48 Hib, unspecified formulation 09/16/1994 completed Not Available [facility] 03/06/2023 03:50:49 Hib, unspecified formulation 1993 completed Not Available [facility] 03/06/2023 03:50:49 Hib, unspecified formulation 03/07/1994 completed Not Available [facility] 03/06/2023 03:50:49 COVID-19, mRNA, LNP-S, PF, 100 mcg/0.5mL dose or 50 mcg/0.25mL dose 08/21/2020 completed Not Available [facility] 03/06/20 03:50:49 COVID-19, mRNA, LNP-S, PF, 100 mcg/0.5mL dose or 50 mcg/0.25mL dose 09/18/2020 completed Not Available [facility] 03/06/20 03:50:49 COVID-19, mRNA, LNP-S, PF, 100 mcg/0.5mL dose or 50 mcg/0.25mL dose 04/10/2021 completed Not Available [facility] 03/06/20 03:50:50 varicella 11/24/2006 completed Not Available [facility] 03:50:50 varicella 01/21/1999 completed Not Available [facility] 03:50:50 SARS-COV-2 (COVID-19) vaccine, UNSPECIFIED 09/25/2021 completed Not Available [facility] 03/06/2023 03:50:50 Hep B, unspecified formulation 1993 completed Not Available [facility] 03/06/2023 03:50:51 Hep B, unspecified formulation 1993 completed Not Available [facility] 03/06/2023 03:50:51 Hep B, unspecified formulation 03/07/1994 completed Not Available [facility] 03/06/2023 03:50:52 Hep A, unspecified formulation 06/22/2000 completed Not Available [facility] 03/06/2023 03:50:52 Hep A, unspecified formulation 11/07/1997 completed Not Available [facility] 03/06/2023 03:50:52 influenza, unspecified formulation 01/18/2016 completed Not Available [facility] 03/06/2023 03:50:52 polio, unspecified formulation 05/15/1994 completed Not Available [facility] 03/06/2023 03:50:52 polio, unspecified formulation 1993 completed Not Available [facility] 03/06/2023 03:50:52 polio, unspecified formulation 09/15/1994 completed Not Available [facility] 03/06/2023 03:50:53 polio, unspecified formulation 03/07/1994 completed Not Available [facility] 03/06/2023 03:50:53 Influenza, split virus, quadrivalent, PF 01/23/2023 completed Not Available [facility] 05/08/2023 05:31:40 Past Encounters Encounter ID Performer Location Encounter Start Date Encounter Closed Date Diagnosis/Indication Diagnosis SNOMED-CT Code [id number] LORNA MARTINEZ APRN [address] [address] 11/10/2023 09:56:28 11/10/2023 12:18:07 Tetraplegia 76849879 Osteomyelitis 74236048 High enzym e level in serum 239258216 Vitamin D deficiency 347 50375 Impacted cerumen 9889774 6 Health Concerns Section Related Observation LastModified by Organization [employer] LastModified Time None Recorded Concern Status LastModified by Organization Details LastModified Time None Recorded Payers Encounter Date Sequence Insurance Name Policy Number Policy Green Covered Member ID Green Member ID Guarantor Name 11/10/2023 1 [facility] (MEDICAID) Tana Cavazos [id number] Tana Cavazos Notes Date Note Type Note [...] -- Has been working with surgeon at [facility] and ID at [facility]. -- Has elevated inflammatory markers that are gradually rising, specifically CRP and ESR -- Normal CK -- LFTs are elevated; initially alk phos was primarily elevated, but over the last few months her AST and ALT have been increasing. She had abdominal US done at [facility] 03/28/23 and this was normal. ID felt [...] change weekly and PRN. Goes back to [place] in December 02. Has been discharged from provider in [place]/ the surgeon. Fannie has full guardianship of Kalyan. LORNA MARTINEZ, [address], [place], [address], [facility]. 11/10/2023 12:42:59 OBGyn Episode No OBEpisode recorded.
--- OUTSIDE RECORDS SUMMARY | 2023-12-07 15:19 | XMS_ITS | Encounter Summary ---
[place] [address] Care Team Providers Care Hand Lens Polisher Name Role Phone Lorna Bal APRN Primary Care Provider [phone] Encounter Details Date Type Department Care Team (Late st Contact Info) Description 12/03/2023 1:45 PM EDT Laboratory Appointment Lab [address] [place] [address] Arrived Social History Tobacco Use Types Packs/Day Years Used Date Smoking Tobacco: Never Passive Smoke Exposure: Never Smokeless Tobacco: Never Comments:NO SMOKERS IN THE H OME Alcohol Use Standard Drinks/Week Comments No 0 (1 standard drink = 0.6 oz pur e alcohol) [facility] Utilities Answer Date Recorded In the past 12 months has [employer] electric, gas, oil, or water [employer] threatened to shut off services in your [...] were you homeless or living in a long term (including now)? No 10/29/2023 IPV Inpatient Questions [...] PM EST Office [place] [address] Hollie Ambriz MD [facility] [address] [place] [address] documented as of this encounter Visit Diagnoses Not on filedocumented in this encounter Care Teams Hand Lens Polisher Relationship Specialty Start Date End Date Lorna Bal APRN [address] [place] [address] PCP - General Family Medicine 05/27/18 documented as of this encounter
--- OUTSIDE RECORDS SUMMARY | 2023-12-07 15:19 | XMS_ITS | Encounter Summary ---
Author Organization [facility] Address [facility] [place] [address] Care Team Providers Care Open Hearth Furnace Laborer Name Role Phone Lorna Bal APRN Primary Care Provider [phone] Encounter Details Date Type Department Care Team (Late st Contact Info) Description 12/03/2023 Orders [place] [address] Hollie Ambriz MD [facility] [place] [address] Spinal abscess; Bacteremia; alf 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 Social History Tobacco Use Types Packs/Day Years Used Date Smoking Tobacco: Never Passive Smoke Exposure: Never Smokeless Tobacco: Never Comments:NO SMOKERS IN THE H OME Alcohol Use Standard Drinks/Week Comments No 0 (1 standard drink = 0.6 oz pur e alcohol) [facility] Utilities Answer Date Recorded In [...] time in the past [address] [facility], were you homeless or living in a [...] PM EST Office [place] [address] Hollie Ambriz MD [facility] [place] [address] Scheduled Orders Name Type Priority Associated Diagnoses Orde r Schedule Cath, Percutaneous Central Cath Removal (PICC) Procedures Routine Spinal abscess Bacteremia alf 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 Expected: 12/11/2023, Expires: 06/11/2024 documented as of this encounter Visit Diagnoses Diagnosis Spinal abscess Acute osteomyelitis, other specified site Bacteremia alf 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 Encounter for long-term (current) use of antibiotics documented in this encounter Care Teams Open Hearth Furnace Laborer Relationship Specialty Start Date End Date Lorna Bal APRN [address] [place] [address] PCP - General Family Medicine 05/27/18 documented as of this encounter
--- OUTSIDE RECORDS SUMMARY | 2023-12-07 15:19 | XMS_ITS | Data Portability ---
Author Organization [place] - [facility], [facility] Address [address] [place] [address] Assessment Encounter Date Assessment Date Assessment LastModified by Organization Details LastModified Time 04/24/2023 04/24/2023 The total time devoted to today's encounter, including both the ukgt-ah-ukok time with the patient and/or family/caregiv er and qql-egrt-hi-fa ce time I personally spent is 48 minutes. Not available 04/24/2023 09:38:15 11/10/2023 11/10/2023 The total time devoted to today's encounter, including both the izmq-sy-gkjh time with the patient and/or family/caregiv er and xvx-ueps-cj-fa ce time I personally spent is 35 minutes. Hospital admission: 7.3.204 Hospital discharge 7.9.24. Chronic lead caregiver reach out 7.10.24 FU in office: 7.16.24 Complexity: high Follow-up in 6 weeks. Call or RTO sooner if needs arise. Not available 11/10/2023 10:35:50 Plan of Treatment Reminders Order Date Submit Date Provider Last Modified By Organization Details Last Modified Time Details Appointments Follow Up 2023 10:30A M Not available Not available Not available Lab hepatitis panel (A+B+C), acute, serum 2022 023 [facility] (Registration ), [address] [place] [address] [place], [address], 04/25/2023 11:53:33 CMP, serum or plasma 2022 023 [facility] (Registration ), [address] [place] [address] , [place], [address], 04/24/2023 14:57:58 CBC w/ auto diff 2022 023 [facility] (Registration ), [address] [place] [address] [place], [address], 04/24/2023 14:43:55 C-reactiv e protein, quantitat brissa, serum or plasma [address] [facility] [address] [facility] (Registration ), [address] [place] [address] [place], [address], 05/01/2023 11:12:20 ESR (erythroc yte sedimenta tion rate), blood [address] [facility] [address] [facility] (Registration ), [address] [place] [address] [place], [address], 05/01/2023 11:12:20 Referral orthopedi c surgeon referral - 2nd time sending for spasms to the right wrist/ thumb. 2023 024 [facility], [address], [place], [address], 08/24/2023 10:27:47 Procedures None recorded. Surgeries None recorded. Imaging None recorded. Medication Orders Ensure Active High Protein oral liquid 2022 023 [facility] [address] [place], [address], 04/24/2023 09:17:52 Debrox 6.5 % ear drops 2023 024 [facility], [address] [place], [address], 11/10/2023 10:38:18 cholecalc iferol (vitamin D3) 125 mcg (5,000 unit) tablet 2023 024 [facility] [address] [place], [address], 11/10/2023 11:06:20 baclofen 15 mg tablet 2023 024 [facility] [address] [place], [address], 11/10/2023 10:38:17 Patient TargetsNo targets recorded. Patient Instructions Encounter Date Encounter Id Patient Instructions Last Modified By Organization Details Last Modified Time 04/24/2023 [id number] - Call Dr Augustin at [facility] - Call infectious disease at [facility] Work on improving bowels that we discussed [email or web address] Not available 04/24/2023 09:34:29 Reason for Referral [...] 10_3/ uL 4.4-10 .8 normal Not Available [address] [place], [address] 04/03/2023 11:18:43 04/03/20 23 04/03/2023 COMPL ETE BLOOD COUNT W/DIF F RBC 3.44 10_6/ uL 3.93-5 .22 low Not Available [address] [place], [address] 04/03/2023 11:18:43 04/03/20 23 04/03/2023 COMPL ETE BLOOD COUNT W/DIF F HGB 9.6 g/dL 11.2-1 5.7 low Not Available [address] [place], [address] 04/03/2023 11:18:43 04/03/20 23 04/03/2023 COMPL ETE BLOOD COUNT W/DIF F HCT 29.6 % 36.0-4 6.0 low Not Available [address] [place], [address] 04/03/2023 11:18:43 04/03/20 23 04/03/2023 COMPL ETE BLOOD COUNT W/DIF F MCV 86 fL 80-95 normal Not Available [address] [place], [address] 04/03/2023 11:18:43 04/03/20 23 04/03/2023 COMPL ETE BLOOD COUNT W/DIF F MCH 27.9 pg 27.0-3 3.0 normal Not Available [address] [place], [address] 04/03/2023 11:18:43 04/03/20 23 04/03/2023 COMPL ETE BLOOD COUNT W/DIF F MCHC 32.4 % 32.0-3 6.0 normal Not Available [address] [place], [address] 04/03/2023 11:18:43 04/03/20 23 04/03/2023 COMPL ETE BLOOD COUNT W/DIF F RDW 14.7 % 11.7-1 4.6 high Not Available [address] [place], [address] 04/03/2023 11:18:43 04/03/20 23 04/03/2023 COMPL ETE BLOOD COUNT W/DIF F platelet count 524 10_3/ uL 130-40 0 high Not Available [address] [place], [address] 04/03/2023 11:18:43 04/03/20 23 04/03/2023 COMPL ETE BLOOD COUNT W/DIF F MPV 9.7 fL 8.0-11 .0 normal Not Available [address] [place], [address] 04/03/2023 11:18:43 04/03/20 23 04/03/2023 COMPL ETE BLOOD COUNT W/DIF F neutrophils % 71.9 Not Available [address] [place], [address] 04/03/2023 11:18:43 04/03/20 23 04/03/2023 COMPL ETE BLOOD COUNT W/DIF F lymphocytes % 20.8 Not Available [address] [place], [address] 04/03/2023 11:18:43 04/03/20 23 04/03/2023 COMPL ETE BLOOD COUNT W/DIF F monocytes % 5.0 Not Available [address] [place], [address] 04/03/2023 11:18:43 04/03/20 23 04/03/2023 COMPL ETE BLOOD COUNT W/DIF F eosinophils % 1.5 Not Available [address] [place], [address] 04/03/2023 11:18:43 04/03/20 23 04/03/2023 COMPL ETE BLOOD COUNT W/DIF F basophils % 0.5 Not Available [address] [place], [address] 04/03/2023 11:18:43 04/03/20 23 04/03/2023 COMPL ETE BLOOD COUNT W/DIF F immature grans % 0.3 Not Available [address] [place], [address] 04/03/2023 11:18:43 04/03/20 23 04/03/2023 COMPL ETE BLOOD COUNT W/DIF F nucleated RBC 0.0 % 0.0-0. 3 normal Not Available [address] [place], [address] 04/03/2023 11:18:43 04/03/20 23 04/03/2023 COMPL ETE BLOOD COUNT W/DIF F absolute neutrophil count 4.31 10_3/ uL 1.2-6. 7 normal Not Available [address] [place], [address] 04/03/2023 11:18:43 04/03/20 23 04/03/2023 COMPL ETE BLOOD COUNT W/DIF F absolute lymphocyte count 1.25 10_3/ uL 1.2-3. 4 normal Not Available [address] [place], [address] 04/03/2023 11:18:43 04/03/20 23 04/03/2023 COMPL ETE BLOOD COUNT W/DIF F absolute monocyte count 0.30 10_3/ uL 0.1-0. 8 normal Not Available [address] [place], [address] 04/03/2023 11:18:43 04/03/20 23 04/03/2023 COMPL ETE BLOOD COUNT W/DIF F absolute eosinophil count 0.09 10_3/ uL 0.0-0. 7 normal Not Available [address] [place], [address] 04/03/2023 11:18:43 04/03/20 23 04/03/2023 COMPL ETE BLOOD COUNT W/DIF F absolute basophil count 0.03 10_3/ uL 0.0-0. 2 normal Not Available [address] [place], [address] 04/03/2023 11:18:43 04/03/20 23 04/03/2023 LIVER PANEL total protein 7.8 g/dL 6.4-8. 2 normal Not Available [address] [place], [address] 04/03/2023 11:30:47 04/03/20 23 04/03/2023 LIVER PANEL albumin 3.3 g/dL 3.4-5. 0 low Not Available [address] [place], [address] 04/03/2023 11:30:47 04/03/20 23 04/03/2023 LIVER PANEL bilirubin, total 0.3 mg/dL 0.2-1. 0 normal Not Available [address] [place], [address] 04/03/2023 11:30:47 04/03/20 23 04/03/2023 LIVER PANEL alk phos 365 U/L 46-116 high Not Available [address] [place], [address] 04/03/2023 11:30:47 04/03/2004/03/2023 LIVER PANEL AST 48 U/L 15-37 high Not Available [address] [place], [address] 04/03/2023 11:30:47 04/03/20 23 04/03/2023 LIVER PANEL ALT 89 U/L 14-59 high Not Available [address] [place], [address] 04/03/2023 11:30:47 04/03/2004/03/2023 LIVER PANEL bilirubin, conjugated 0.1 mg/dL 0.0-0. 2 normal Not Available [address] [place], [address] 04/03/2023 11:30:47 04/03/20 23 04/03/2023 COMPR EHENS BRISSA METAB OLIC PANEL calcium 9.2 mg/dL 8.5-10 .1 normal Not Available [address] [place], [address] 04/03/2023 11:30:47 04/03/2004/03/2023 COMPR EHENS BRISSA METAB OLIC PANEL glucose 144 mg/dL 74-106 high Not Available [address] [place], [address] 04/03/2023 11:30:47 04/03/20 23 04/03/2023 COMPR EHENS BRISSA METAB OLIC PANEL BUN 13 mg/dL 7-18 normal Not Available [address] [place], [address] 04/03/2023 11:30:47 04/03/20 23 04/03/2023 COMPR EHENS BRISSA METAB OLIC PANEL creatinine 0.4 mg/dL 0.55-1 .02 low Not Available [address] [place], [address] 04/03/2023 11:30:47 04/03/20 04/03/2023 COMPR EHENS BRISSA METAB OLIC PANEL estimated GFR 137.31 mL/min /1.73m 2 Not Available [address] [place], [address] 04/03/2023 11:30:47 04/03/20 23 04/03/2023 COMPR EHENS BRISSA METAB OLIC PANEL sodium 139 mmol/ L 136-14 5 normal Not Available [address] [place], [address] 04/03/2023 11:30:47 04/03/20 23 04/03/2023 COMPR EHENS BRISSA METAB OLIC PANEL potassium 3.8 mmol/ L 3.5-5. 1 normal Not Available [address] [place], [address] 04/03/2023 11:30:47 04/03/20 23 04/03/2023 COMPR EHENS BRISSA METAB OLIC PANEL chloride 102 mmol/ L 98-107 normal Not Available [address] [place], [address] 04/03/2023 11:30:47 04/03/20 23 04/03/2023 COMPR EHENS BRISSA METAB OLIC PANEL CO2 24.5 mmol/ L 21.0-3 2.0 normal Not Available [address] [place], [address] 04/03/2023 11:30:47 04/03/20 23 04/03/2023 COMPR EHENS BRISSA METAB OLIC PANEL anion gap 12.5 mmol/ L 3-11 high Not Available [address] [place], [address] 04/03/2023 11:30:47 04/03/20 23 04/03/2023 CREAT INE KINAS E creatine kinase 45 U/L 26-192 normal Not Available [address] [place], [address] 04/03/2023 11:30:48 04/03/20 23 04/03/2023 C-MARIELOS CTIVE PROTE IN C-reactive protein 6.28 mg/dL 0.0-0. 3 high Not Available [address] [place], [address] 04/03/2023 11:30:48 04/03/20 23 04/03/2023 ESR ESR 55 mm/HR 0-20 high Not Available [address] [place], [address] 04/03/2023 11:37:48 04/10/20 23 04/10/2023 COMPR EHENS BRISSA METAB OLIC PANEL calcium 9.3 mg/dL 8.5-10 .1 normal Not Available [address] [place], [address] 04/10/2023 12:25:49 04/10/20 23 04/10/2023 COMPR EHENS BRISSA METAB OLIC PANEL glucose 90 mg/dL 74-106 normal Not Available [address] [place], [address] 04/10/2023 12:25:49 04/10/20 23 04/10/2023 COMPR EHENS BRISSA METAB OLIC PANEL BUN 7 mg/dL 7-18 normal Not Available [address] [place], [address] 04/10/2023 12:25:49 04/10/20 23 04/10/2023 COMPR EHENS BRISSA METAB OLIC PANEL creatinine 0.3 mg/dL 0.55-1 .02 low Not Available [address] [place], [address] 04/10/2023 12:25:49 04/10/20 23 04/10/2023 COMPR EHENS BRISSA METAB OLIC PANEL estimated GFR 147.17 mL/min /1.73m 2 Not Available [address] [place], [address] 04/10/2023 12:25:49 04/10/20 23 04/10/2023 COMPR EHENS BRISSA METAB OLIC PANEL total protein 7.5 g/dL 6.4-8. 2 normal Not Available [address] [place], [address] 04/10/2023 12:25:49 04/10/20 23 04/10/2023 COMPR EHENS BRISSA METAB OLIC PANEL albumin 3.0 g/dL 3.4-5. 0 low Not Available [address] [place], [address] 04/10/2023 12:25:49 04/10/20 23 04/10/2023 COMPR EHENS BRISSA METAB OLIC PANEL bilirubin, total 0.2 mg/dL 0.2-1. 0 normal Not Available [address] [place], [address] 04/10/2023 12:25:49 04/10/20 23 04/10/2023 COMPR EHENS BRISSA METAB OLIC PANEL alk phos 414 U/L 46-116 high Not Available [address] [place], [address] 04/10/2023 12:25:49 04/10/20 23 04/10/2023 COMPR EHENS BRISSA METAB OLIC PANEL sodium 138 mmol/ L 136-14 5 normal Not Available [address] [place], [address] 04/10/2023 12:25:49 04/10/20 23 04/10/2023 COMPR EHENS BRISSA METAB OLIC PANEL potassium 4.3 mmol/ L 3.5-5. 1 normal Not Available [address] [place], [address] 04/10/2023 12:25:49 04/10/20 23 04/10/2023 COMPR EHENS BRISSA METAB OLIC PANEL chloride 102 mmol/ L 98-107 normal Not Available [address] [place], [address] 04/10/2023 12:25:49 04/10/20 23 04/10/2023 COMPR EHENS BRISSA METAB OLIC PANEL CO2 24.7 mmol/ L 21.0-3 2.0 normal Not Available [address] [place], [address] 04/10/2023 12:25:49 04/10/20 23 04/10/2023 COMPR EHENS BRISSA METAB OLIC PANEL anion gap 11.3 mmol/ L 3-11 high Not Available [address] [place], [address] 04/10/2023 12:25:49 04/10/20 23 04/10/2023 COMPR EHENS BRISSA METAB OLIC PANEL AST 77 U/L 15-37 high Not Available [address] [place], [address] 04/10/2023 12:25:49 04/10/20 23 04/10/2023 COMPR EHENS BRISSA METAB OLIC PANEL ALT 137 U/L 14-59 high Not Available [address] [place], [address] 04/10/2023 12:25:49 04/10/20 23 04/10/2023 C-MARIELOS CTIVE PROTE IN C-reactive protein 9.51 mg/dL 0.0-0. 3 high Not Available [address] [place], [address] 04/10/2023 12:25:50 04/10/20 23 04/10/2023 C-MARIELOS CTIVE PROTE IN C-reactive protein 9.51 mg/dL 0.0-0. 3 high Not Available [address] [place], [address] 04/12/2023 01:17:45 04/24/20 23 04/24/2023 ESR ESR 53 mm/HR 0-20 high Not Available [address] [place], [address] 04/24/2023 14:34:51 04/24/20 23 04/24/2023 COMPL ETE BLOOD COUNT W/DIF F WBC 4.01 10_3/ uL 4.4-10 .8 low Not Available [address] [place], [address] 04/24/2023 14:43:55 04/24/20 23 04/24/2023 COMPL ETE BLOOD COUNT W/DIF F RBC 3.76 10_6/ uL 3.93-5 .22 low Not Available [address] [place], [address] 04/24/2023 14:43:55 04/24/20 23 04/24/2023 COMPL ETE BLOOD COUNT W/DIF F HGB 9.6 g/dL 11.2-1 5.7 low Not Available [address] [place], [address] 04/24/2023 14:43:55 04/24/20 23 04/24/2023 COMPL ETE BLOOD COUNT W/DIF F HCT 31.3 % 36.0-4 6.0 low Not Available [address] [place], [address] 04/24/2023 14:43:55 04/24/20 23 04/24/2023 COMPL ETE BLOOD COUNT W/DIF F MCV 83 fL 80-95 normal Not Available [address] [place], [address] 04/24/2023 14:43:55 04/24/20 23 04/24/2023 COMPL ETE BLOOD COUNT W/DIF F MCH 25.5 pg 27.0-3 3.0 low Not Available [address] [place], [address] 04/24/2023 14:43:55 04/24/20 23 04/24/2023 COMPL ETE BLOOD COUNT W/DIF F MCHC 30.7 % 32.0-3 6.0 low Not Available [address] [place], [address] 04/24/2023 14:43:55 04/24/20 23 04/24/2023 COMPL ETE BLOOD COUNT W/DIF F RDW 16.9 % 11.7-1 4.6 high Not Available [address] [place], [address] 04/24/2023 14:43:55 04/24/20 23 04/24/2023 COMPL ETE BLOOD COUNT W/DIF F platelet count 423 10_3/ uL 130-40 0 high Not Available [address] [place], [address] 04/24/2023 14:43:55 04/24/20 23 04/24/2023 COMPL ETE BLOOD COUNT W/DIF F MPV 9.9 fL 8.0-11 .0 normal Not Available [address] [place], [address] 04/24/2023 14:43:55 04/24/20 23 04/24/2023 COMPL ETE BLOOD COUNT W/DIF F neutrophils % 66.4 Not Available [address] [place], [address] 04/24/2023 14:43:55 04/24/20 23 04/24/2023 COMPL ETE BLOOD COUNT W/DIF F lymphocytes % 24.9 Not Available [address] [place], [address] 04/24/2023 14:43:55 04/24/20 23 04/24/2023 COMPL ETE BLOOD COUNT W/DIF F monocytes % 6.5 Not Available [address] [place], [address] 04/24/2023 14:43:55 04/24/20 23 04/24/2023 COMPL ETE BLOOD COUNT W/DIF F eosinophils % 1.5 Not Available [address] [place], [address] 04/24/2023 14:43:55 04/24/20 23 04/24/2023 COMPL ETE BLOOD COUNT W/DIF F basophils % 0.7 Not Available [address] [place], [address] 04/24/2023 14:43:55 04/24/20 23 04/24/2023 COMPL ETE BLOOD COUNT W/DIF F immature grans % 0.0 Not Available [address] [place], [address] 04/24/2023 14:43:55 04/24/20 23 04/24/2023 COMPL ETE BLOOD COUNT W/DIF F nucleated RBC 0.0 % 0.0-0. 3 normal Not Available [address] [place], [address] 04/24/2023 14:43:55 04/24/20 23 04/24/2023 COMPL ETE BLOOD COUNT W/DIF F absolute neutrophil count 2.66 10_3/ uL 1.2-6. 7 normal Not Available [address] [place], [address] 04/24/2023 14:43:55 04/24/20 23 04/24/2023 COMPL ETE BLOOD COUNT W/DIF F absolute lymphocyte count 1.00 10_3/ uL 1.2-3. 4 low Not Available [address] [place], [address] 04/24/2023 14:43:55 04/24/20 23 04/24/2023 COMPL ETE BLOOD COUNT W/DIF F absolute monocyte count 0.26 10_3/ uL 0.1-0. 8 normal Not Available [address] [place], [address] 04/24/2023 14:43:55 04/24/20 23 04/24/2023 COMPL ETE BLOOD COUNT W/DIF F absolute eosinophil count 0.06 10_3/ uL 0.0-0. 7 normal Not Available [address] [place], [address] 04/24/2023 14:43:55 04/24/20 23 04/24/2023 COMPL ETE BLOOD COUNT W/DIF F absolute basophil count 0.03 10_3/ uL 0.0-0. 2 normal Not Available [address] [place], [address] 04/24/2023 14:43:55 04/24/20 23 04/24/2023 COMPR EHENS BRISSA METAB OLIC PANEL calcium 9.5 mg/dL 8.5-10 .1 normal Not Available [address] [place], [address] 04/24/2023 14:57:58 04/24/2004/24/2023 COMPR EHENS BRISSA METAB OLIC PANEL glucose 97 mg/dL 74-[address] [facility] [address] [place], [address] 04/24/2023 14:57:58 04/24/20 23 04/24/2023 COMPR EHENS BRISSA METAB OLIC PANEL BUN 11 mg/dL 7-[address] [facility] [address] [place], [address] 04/24/2023 14:57:58 04/24/20 23 04/24/2023 COMPR EHENS BRISSA METAB OLIC PANEL creatinine 0.4 mg/dL 0.55-1 .02 low Not Available [address] [place], [address] 04/24/2023 14:57:58 04/24/20 23 04/24/2023 COMPR EHENS BRISSA METAB OLIC PANEL estimated GFR 137.31 mL/min /1.73m 2 Not Available [address] [place], [address] 04/24/2023 14:57:58 04/24/20 23 04/24/2023 COMPR EHENS BRISSA METAB OLIC PANEL total protein 8.7 g/dL 6.4-8. 2 high Not Available [address] [place], [address] 04/24/2023 14:57:58 04/24/20 23 04/24/2023 COMPR EHENS BRISSA METAB OLIC PANEL albumin 3.2 g/dL 3.4-5. 0 low Not Available [address] [place], [address] 04/24/2023 14:57:58 04/24/20 23 04/24/2023 COMPR EHENS BRISSA METAB OLIC PANEL bilirubin, total 0.1 mg/dL 0.2-1. 0 low Not Available [address] [place], [address] 04/24/2023 14:57:58 04/24/20 23 04/24/2023 COMPR EHENS BRISSA METAB OLIC PANEL alk phos 256 U/L 46-116 high Not Available [address] [place], [address] 04/24/2023 14:57:58 04/24/20 23 04/24/2023 COMPR EHENS BRISSA METAB OLIC PANEL sodium 140 mmol/ L 136-14 5 normal Not Available [address] [place], [address] 04/24/2023 14:57:58 04/24/20 23 04/24/2023 COMPR EHENS BRISSA METAB OLIC PANEL potassium 3.8 mmol/ L 3.5-5. 1 normal Not Available [address] [place], [address] 04/24/2023 14:57:58 04/24/20 23 04/24/2023 COMPR EHENS BRISSA METAB OLIC PANEL chloride 102 mmol/ L 98-107 normal Not Available [address] [place], [address] 04/24/2023 14:57:58 04/24/20 23 04/24/2023 COMPR EHENS BRISSA METAB OLIC PANEL CO2 27.8 mmol/ L 21.0-3 2.0 normal Not Available [address] [place], [address] 04/24/2023 14:57:58 04/24/20 23 04/24/2023 COMPR EHENS BRISSA METAB OLIC PANEL anion gap 10.2 mmol/ L 3-11 normal Not Available [address] [place], [address] 04/24/2023 14:57:58 04/24/20 23 04/24/2023 COMPR EHENS BRISSA METAB OLIC PANEL AST 30 U/L 15-37 normal Not Available [address] [place], [address] 04/24/2023 14:57:58 04/24/20 23 04/24/2023 COMPR EHENS BRISSA METAB OLIC PANEL ALT 34 U/L 14-59 normal Not Available [address] [place], [address] 04/24/2023 14:57:58 04/24/20 23 04/24/2023 C-MARIELOS CTIVE PROTE IN C-reactive protein 5.46 mg/dL 0.0-0. 3 high Not Available [address] [place], [address] 04/24/2023 14:57:59 04/24/20 23 04/24/2023 ACUTE HEPAT ITIS PROFI LE hepatitis B surface Ag Negati ve negati ve Not Available [address] [place], [address] 04/25/2023 11:53:33 04/24/20 23 04/24/2023 ACUTE HEPAT ITIS PROFI LE hepatitis C Ab W rflx HCV PCR Negati ve negati ve Not Available [address] [place], [address] 04/25/2023 11:53:33 04/24/20 23 04/24/2023 ACUTE HEPAT ITIS PROFI LE hepatitis A antibody IgM Negati ve negati ve Not Available [address] [place], [address] 04/25/2023 11:53:33 04/24/20 23 04/24/2023 ACUTE HEPAT ITIS PROFI LE hepatitis B core antibody Negati ve negati ve Not Available [address] [place], [address] 04/25/2023 11:53:33 05/01/19 24 05/01/2023 fecal occul t blood , stool Occult Blood negati ve Not Available [address], [address], 05/01/2023 16:26:46 05/14/19 24 05/14/2023 COMPL ETE BLOOD COUNT W/DIF F WBC 3.61 10_3/ uL 4.4-10 .8 low Not Available [address] [place], [address] 05/14/2023 12:56:33 05/14/19 24 05/14/2023 COMPL ETE BLOOD COUNT W/DIF F RBC 4.26 10_6/ uL 3.93-5 .22 normal Not Available [address] [place], [address] 05/14/2023 12:56:33 05/14/19 24 05/14/2023 COMPL ETE BLOOD COUNT W/DIF F HGB 10.4 g/dL 11.2-1 5.7 low Not Available [address] [place], [address] 05/14/2023 12:56:33 05/14/19 24 05/14/2023 COMPL ETE BLOOD COUNT W/DIF F HCT 34.3 % 36.0-4 6.0 low Not Available [address] [place], [address] 05/14/2023 12:56:33 05/14/19 24 05/14/2023 COMPL ETE BLOOD COUNT W/DIF F MCV 81 fL 80-95 normal Not Available [address] [place], [address] 05/14/2023 12:56:33 05/14/19 24 05/14/2023 COMPL ETE BLOOD COUNT W/DIF F MCH 24.4 pg 27.0-3 3.0 low Not Available [address] [place], [address] 05/14/2023 12:56:33 05/14/19 24 05/14/2023 COMPL ETE BLOOD COUNT W/DIF F MCHC 30.3 % 32.0-3 6.0 low Not Available [address] [place], [address] 05/14/2023 12:56:33 05/14/19 24 05/14/2023 COMPL ETE BLOOD COUNT W/DIF F RDW 17.8 % 11.7-1 4.6 high Not Available [address] [place], [address] 05/14/2023 12:56:33 05/14/19 24 05/14/2023 COMPL ETE BLOOD COUNT W/DIF F platelet count 351 10_3/ uL 130-40 0 normal Not Available [address] [place], [address] 05/14/2023 12:56:33 05/14/19 24 05/14/2023 COMPL ETE BLOOD COUNT W/DIF F MPV 9.6 fL 8.0-11 .0 normal Not Available [address] [place], [address] 05/14/2023 12:56:33 05/14/19 24 05/14/2023 COMPL ETE BLOOD COUNT W/DIF F neutrophils % 55.3 Not Available [address] [place], [address] 05/14/2023 12:56:33 05/14/19 24 05/14/2023 COMPL ETE BLOOD COUNT W/DIF F lymphocytes % 36.6 Not Available [address] [place], [address] 05/14/2023 12:56:33 05/14/19 24 05/14/2023 COMPL ETE BLOOD COUNT W/DIF F monocytes % 5.3 Not Available [address] [place], [address] 05/14/2023 12:56:33 05/14/19 24 05/14/2023 COMPL ETE BLOOD COUNT W/DIF F eosinophils % 1.9 Not Available [address] [place], [address] 05/14/2023 12:56:33 05/14/19 24 05/14/2023 COMPL ETE BLOOD COUNT W/DIF F basophils % 0.6 Not Available [address] [place], [address] 05/14/2023 12:56:33 05/14/19 24 05/14/2023 COMPL ETE BLOOD COUNT W/DIF F immature grans % 0.3 Not Available [address] [place], [address] 05/14/2023 12:56:33 05/14/19 24 05/14/2023 COMPL ETE BLOOD COUNT W/DIF F nucleated RBC 0.0 % 0.0-0. 3 normal Not Available [address] [place], [address] 05/14/2023 12:56:33 05/14/19 24 05/14/2023 COMPL ETE BLOOD COUNT W/DIF F absolute neutrophil count 2.00 10_3/ uL 1.2-6. 7 normal Not Available [address] [place], [address] 05/14/2023 12:56:33 05/14/19 24 05/14/2023 COMPL ETE BLOOD COUNT W/DIF F absolute lymphocyte count 1.32 10_3/ uL 1.2-3. 4 normal Not Available [address] [place], [address] 05/14/2023 12:56:33 05/14/19 24 05/14/2023 COMPL ETE BLOOD COUNT W/DIF F absolute monocyte count 0.19 10_3/ uL 0.1-0. 8 normal Not Available 06 [place], [address] 05/14/2023 12:56:33 05/14/19 24 05/14/2023 COMPL ETE BLOOD COUNT W/DIF F absolute eosinophil count 0.07 10_3/ uL 0.0-0. 7 normal Not Available [address] [place], [address] 05/14/2023 12:56:33 05/14/19 24 05/14/2023 COMPL ETE BLOOD COUNT W/DIF F absolute basophil count 0.02 10_3/ uL 0.0-0. 2 normal Not Available [address] [place], [address] 05/14/2023 12:56:33 05/14/19 24 05/14/2023 ESR ESR 67 mm/HR 0-20 high Not Available [address] [place], [address] 05/14/2023 12:56:35 05/14/19 24 05/14/2023 COMPR EHENS BRISSA METAB OLIC PANEL calcium 9.4 mg/dL 8.5-10 .1 normal Not Available [address] [place], [address] 05/14/2023 13:06:39 05/14/19 24 05/14/2023 COMPR EHENS BRISSA METAB OLIC PANEL glucose 90 mg/dL 74-106 normal Not Available [address] [place], [address] 05/14/2023 13:06:39 05/14/19 24 05/14/2023 COMPR EHENS BRISSA METAB OLIC PANEL BUN 13 mg/dL 7-18 normal Not Available [address] [place], [address] 05/14/2023 13:06:39 05/14/19 24 05/14/2023 COMPR EHENS BRISSA METAB OLIC PANEL creatinine 0.4 mg/dL 0.55-1 .02 low Not Available [address] [place], [address] 05/14/2023 13:06:39 05/14/19 24 05/14/2023 COMPR EHENS BRISSA METAB OLIC PANEL estimated GFR 137.31 mL/min /1.73m 2 Not Available [address] [place], [address] 05/14/2023 13:06:39 05/14/19 24 05/14/2023 COMPR EHENS BRISSA METAB OLIC PANEL total protein 7.8 g/dL 6.4-8. 2 normal Not Available [address] [place], [address] 05/14/2023 13:06:39 05/14/19 24 05/14/2023 COMPR EHENS BRISSA METAB OLIC PANEL albumin 3.3 g/dL 3.4-5. 0 low Not Available [address] [place], [address] 05/14/2023 13:06:39 05/14/19 24 05/14/2023 COMPR EHENS BRISSA METAB OLIC PANEL bilirubin, total 0.2 mg/dL 0.2-1. 0 normal Not Available [address] [place], [address] 05/14/2023 13:06:39 05/14/19 24 05/14/2023 COMPR EHENS BRISSA METAB OLIC PANEL alk phos 283 U/L 46-116 high Not Available [address] [place], [address] 05/14/2023 13:06:39 05/14/19 24 05/14/2023 COMPR EHENS BRISSA METAB OLIC PANEL sodium 140 mmol/ L 136-14 5 normal Not Available [address] [place], [address] 05/14/2023 13:06:39 05/14/19 24 05/14/2023 COMPR EHENS BRISSA METAB OLIC PANEL potassium 4.1 mmol/ L 3.5-5. 1 normal Not Available [address] [place], [address] 05/14/2023 13:06:39 05/14/19 24 05/14/2023 COMPR EHENS BRISSA METAB OLIC PANEL chloride 102 mmol/ L 98-107 normal Not Available [address] [place], [address] 05/14/2023 13:06:39 05/14/19 24 05/14/2023 COMPR EHENS BRISSA METAB OLIC PANEL CO2 27.4 mmol/ L 21.0-3 2.0 normal Not Available [address] [place], [address] 05/14/2023 13:06:39 05/14/19 24 05/14/2023 COMPR EHENS BRISSA METAB OLIC PANEL anion gap 10.6 mmol/ L 3-11 normal Not Available [address] [place], [address] 05/14/2023 13:06:39 05/14/19 24 05/14/2023 COMPR EHENS BRISSA METAB OLIC PANEL AST 35 U/L 15-37 normal Not Available [address] [place], [address] 05/14/2023 13:06:39 05/14/19 24 05/14/2023 COMPR EHENS BRISSA METAB OLIC PANEL ALT 64 U/L 14-59 high Not Available [address] [place], [address] 05/14/2023 13:06:39 05/14/19 24 05/14/2023 CREAT INE KINAS E creatine kinase 21 U/L 26-192 low Not Available [address] [place], [address] 05/14/2023 13:06:43 05/14/19 24 05/14/2023 C-MARIELOS CTIVE PROTE IN C-reactive protein 3.60 mg/dL 0.0-0. 3 high Not Available [address] [place], [address] 05/14/2023 13:06:43 06/17/19 24 06/17/2023 COMPL ETE BLOOD COUNT W/DIF F WBC 4.17 10_3/ uL 4.4-10 .8 low Not Available [address] [place], [address] 06/17/2023 13:58:18 06/17/19 24 06/17/2023 COMPL ETE BLOOD COUNT W/DIF F RBC 4.90 10_6/ uL 3.93-5 .22 normal Not Available [address] [place], [address] 06/17/2023 13:58:18 06/17/19 24 06/17/2023 COMPL ETE BLOOD COUNT W/DIF F HGB 12.1 g/dL 11.2-1 5.7 normal Not Available [address] [place], [address] 06/17/2023 13:58:18 06/17/19 24 06/17/2023 COMPL ETE BLOOD COUNT W/DIF F HCT 38.4 % 36.0-4 6.0 normal Not Available [address] [place], [address] 06/17/2023 13:58:18 06/17/19 24 06/17/2023 COMPL ETE BLOOD COUNT W/DIF F MCV 78 fL 80-95 low Not Available [address] [place], [address] 06/17/2023 13:58:18 06/17/19 24 06/17/2023 COMPL ETE BLOOD COUNT W/DIF F MCH 24.7 pg 27.0-3 3.0 low Not Available [address] [place], [address] 06/17/2023 13:58:18 06/17/19 24 06/17/2023 COMPL ETE BLOOD COUNT W/DIF F MCHC 31.5 % 32.0-3 6.0 low Not Available [address] [place], [address] 06/17/2023 13:58:18 06/17/19 24 06/17/2023 COMPL ETE BLOOD COUNT W/DIF F RDW 20.3 % 11.7-1 4.6 high Not Available [address] [place], [address] 06/17/2023 13:58:18 06/17/19 24 06/17/2023 COMPL ETE BLOOD COUNT W/DIF F platelet count 325 10_3/ uL 130-40 0 normal Not Available [address] [place], [address] 06/17/2023 13:58:18 06/17/19 24 06/17/2023 COMPL ETE BLOOD COUNT W/DIF F MPV 10.1 fL 8.0-11 .0 normal Not Available [address] [place], [address] 06/17/2023 13:58:18 06/17/19 24 06/17/2023 COMPL ETE BLOOD COUNT W/DIF F neutrophils % 58.2 Not Available [address] [place], [address] 06/17/2023 13:58:18 06/17/19 24 06/17/2023 COMPL ETE BLOOD COUNT W/DIF F lymphocytes % 32.1 Not Available [address] [place], [address] 06/17/2023 13:58:18 06/17/19 24 06/17/2023 COMPL ETE BLOOD COUNT W/DIF F monocytes % 7.4 Not Available [address] [place], [address] 06/17/2023 13:58:18 06/17/19 24 06/17/2023 COMPL ETE BLOOD COUNT W/DIF F eosinophils % 1.4 Not Available [address] [place], [address] 06/17/2023 13:58:18 06/17/19 24 06/17/2023 COMPL ETE BLOOD COUNT W/DIF F basophils % 0.7 Not Available [address] [place], [address] 06/17/2023 13:58:18 06/17/19 24 06/17/2023 COMPL ETE BLOOD COUNT W/DIF F immature grans % 0.2 Not Available [address] [place], [address] 06/17/2023 13:58:18 06/17/19 24 06/17/2023 COMPL ETE BLOOD COUNT W/DIF F nucleated RBC 0.0 % 0.0-0. 3 normal Not Available [address] [place], [address] 06/17/2023 13:58:18 06/17/19 24 06/17/2023 COMPL ETE BLOOD COUNT W/DIF F absolute neutrophil count 2.43 10_3/ uL 1.2-6. 7 normal Not Available [address] [place], [address] 06/17/2023 13:58:18 06/17/19 24 06/17/2023 COMPL ETE BLOOD COUNT W/DIF F absolute lymphocyte count 1.34 10_3/ uL 1.2-3. 4 normal Not Available [address] [place], [address] 06/17/2023 13:58:18 06/17/19 24 06/17/2023 COMPL ETE BLOOD COUNT W/DIF F absolute monocyte count 0.31 10_3/ uL 0.1-0. 8 normal Not Available [address] [place], [address] 06/17/2023 13:58:18 06/17/19 24 06/17/2023 COMPL ETE BLOOD COUNT W/DIF F absolute eosinophil count 0.06 10_3/ uL 0.0-0. 7 normal Not Available [address] [place], [address] 06/17/2023 13:58:18 06/17/19 24 06/17/2023 COMPL ETE BLOOD COUNT W/DIF F absolute basophil count 0.03 10_3/ uL 0.0-0. 2 normal Not Available [address] [place], [address] 06/17/2023 13:58:18 06/17/19 24 06/17/2023 COMPL ETE BLOOD COUNT W/DIF F diff comment RBC Morph Review ed Not Available [address] [place], [address] 06/17/2023 13:58:18 06/17/19 24 06/17/2023 COMPL ETE BLOOD COUNT W/DIF F RBC morphology See Below Not Available [address] [place], [address] 06/17/2023 13:58:18 06/17/19 24 06/17/2023 COMPL ETE BLOOD COUNT W/DIF F anisocytosis 1+ Not Available Nor [address] [place], [address] 06/17/2023 13:58:18 06/17/19 24 06/17/2023 COMPL ETE BLOOD COUNT W/DIF F microcytosis 1+ Not Available Nor [address] [place], [address] 06/17/2023 13:58:18 06/17/19 24 06/17/2023 COMPL ETE BLOOD COUNT W/DIF F poikilocytes 1+ Not Available Nor [address] [place], [address] 06/17/2023 13:58:18 07/01/19 24 07/01/2023 COMPR EHENS BRISSA METAB OLIC PANEL calcium 9.5 mg/dL 8.5-10 .1 normal Not Available [address] [place], [address] 07/01/2023 16:12:34 07/01/19 24 07/01/2023 COMPR EHENS BRISSA METAB OLIC PANEL glucose 102 mg/dL 74-106 normal Not Available [address] [place], [address] 07/01/2023 16:12:34 07/01/1907/01/2023 COMPR EHENS BRISSA METAB OLIC PANEL BUN 13 mg/dL 7-18 normal Not Available [address] [place], [address] 07/01/2023 16:12:34 07/01/19 24 07/01/2023 COMPR EHENS BRISSA METAB OLIC PANEL creatinine 0.4 mg/dL 0.55-1 .02 low Not Available [address] [place], [address] 07/01/2023 16:12:34 07/01/19 24 07/01/2023 COMPR EHENS BRISSA METAB OLIC PANEL estimated GFR 136.46 mL/min /1.73m 2 Not Available [address] [place], [address] 07/01/2023 16:12:34 07/01/19 24 07/01/2023 COMPR EHENS BRISSA METAB OLIC PANEL total protein 7.9 g/dL 6.4-8. 2 normal Not Available [address] [place], [address] 07/01/2023 16:12:34 07/01/19 24 07/01/2023 COMPR EHENS BRISSA METAB OLIC PANEL albumin 3.6 g/dL 3.4-5. 0 normal Not Available [address] [place], [address] 07/01/2023 16:12:34 07/01/19 24 07/01/2023 COMPR EHENS BRISSA METAB OLIC PANEL bilirubin, total 0.1 mg/dL 0.2-1. 0 low Not Available [address] [place], [address] 07/01/2023 16:12:34 07/01/19 24 07/01/2023 COMPR EHENS BRISSA METAB OLIC PANEL alk phos 233 U/L 46-116 high Not Available [address] [place], [address] 07/01/2023 16:12:34 07/01/19 24 07/01/2023 COMPR EHENS BRISSA METAB OLIC PANEL sodium 142 mmol/ L 136-14 5 normal Not Available [address] [place], [address] 07/01/2023 16:12:34 07/01/19 24 07/01/2023 COMPR EHENS BRISSA METAB OLIC PANEL potassium 4.0 mmol/ L 3.5-5. 1 normal Not Available [address] [place], [address] 07/01/2023 16:12:34 07/01/19 24 07/01/2023 COMPR EHENS BRISSA METAB OLIC PANEL chloride 104 mmol/ L 98-107 normal Not Available [address] [place], [address] 07/01/2023 16:12:34 07/01/19 24 07/01/2023 COMPR EHENS BRISSA METAB OLIC PANEL CO2 26.4 mmol/ L 21.0-3 2.0 normal Not Available [address] [place], [address] 07/01/2023 16:12:34 07/01/19 24 07/01/2023 COMPR EHENS BRISSA METAB OLIC PANEL anion gap 11.6 mmol/ L 3-11 high Not Available [address] [place], [address] 07/01/2023 16:12:34 07/01/19 24 07/01/2023 COMPR EHENS BRISSA METAB OLIC PANEL AST 27 U/L 15-37 normal Not Available [address] [place], [address] 07/01/2023 16:12:34 07/01/19 24 07/01/2023 COMPR EHENS BRISSA METAB OLIC PANEL ALT 70 U/L 14-59 high Not Available [address] [place], [address] 07/01/2023 16:12:34 07/01/19 24 07/01/2023 IRON/ IBCT iron 42 ug/dL 50-170 low Not Available [address] [place], [address] 07/01/2023 16:36:37 07/01/19 24 07/01/2023 IRON/ IBCT total iron binding capacity 403 ug/dL 250-45 0 normal Not Available [address] [place], [address] 07/01/2023 16:36:37 07/01/19 24 07/01/2023 IRON/ IBCT transferrin sat 10 % 15-50 low Not Available [address] [place], [address] 07/01/2023 16:36:37 07/01/19 24 07/02/2023 TISSU E TRANS GLUTA YASH E IGA tissue transglutami nase IgA <4.0 cu <20.0 Not Available [address] [place], [address] 07/02/2023 11:39:19 07/01/19 24 07/02/2023 IGG IgG 1631 mg/dL 610-16 16 abnormal Not Available [address] [place], [address] 07/02/2023 15:55:58 07/01/19 24 07/02/2023 IGA IgA 284 mg/dL 85-499 Not Available [address] [place], [address] 07/02/2023 15:55:58 07/29/19 24 07/29/2023 VITAM IN D 25 TOTAL vitamin D 25 total 39.4 NG/mL 30-100 normal Not Available [address] [place], [address] 07/29/2023 13:31:45 10/28/19 24 10/28/2023 COMPL ETE BLOOD COUNT W/DIF F WBC 7.24 10_3/ uL 4.4-10 .8 normal Not Available [address] [place], [address] 10/28/2023 13:08:06 10/28/19 24 10/28/2023 COMPL ETE BLOOD COUNT W/DIF F RBC 4.41 10_6/ uL 3.93-5 .22 normal Not Available [address] [place], [address] 10/28/2023 13:08:06 10/28/19 24 10/28/2023 COMPL ETE BLOOD COUNT W/DIF F HGB 12.5 g/dL 11.2-1 5.7 normal Not Available [address] [place], [address] 10/28/2023 13:08:06 10/28/19 24 10/28/2023 COMPL ETE BLOOD COUNT W/DIF F HCT 38.8 % 36.0-4 6.0 normal Not Available [address] [place], [address] 10/28/2023 13:08:06 10/28/19 24 10/28/2023 COMPL ETE BLOOD COUNT W/DIF F MCV 88 fL 80-95 normal Not Available Paula nunes [address] [place], [address] 10/28/2023 13:08:06 10/28/19 24 10/28/2023 COMPL ETE BLOOD COUNT W/DIF F MCH 28.3 pg 27.0-3 3.0 normal Not Available [address] [place], [address] 10/28/2023 13:08:06 10/28/19 24 10/28/2023 COMPL ETE BLOOD COUNT W/DIF F MCHC 32.2 % 32.0-3 6.0 normal Not Available [address] [place], [address] 10/28/2023 13:08:06 10/28/19 24 10/28/2023 COMPL ETE BLOOD COUNT W/DIF F RDW 14.3 % 11.7-1 4.6 normal Not Available [address] [place], [address] 10/28/2023 13:08:06 10/28/19 24 10/28/2023 COMPL ETE BLOOD COUNT W/DIF F platelet count 482 10_3/ uL 130-40 0 high Not Available [address] [place], [address] 10/28/2023 13:08:06 10/28/19 24 10/28/2023 COMPL ETE BLOOD COUNT W/DIF F MPV 9.8 fL 8.0-11 .0 normal Not Available [address] [place], [address] 10/28/2023 13:08:06 10/28/19 24 10/28/2023 COMPL ETE BLOOD COUNT W/DIF F neutrophils % 71.3 % Not Available [address] [place], [address] 10/28/2023 13:08:06 10/28/19 24 10/28/2023 COMPL ETE BLOOD COUNT W/DIF F lymphocytes % 21.0 % Not Available [address] [place], [address] 10/28/2023 13:08:06 10/28/19 24 10/28/2023 COMPL ETE BLOOD COUNT W/DIF F monocytes % 5.4 % Not Available [address] [place], [address] 10/28/2023 13:08:06 10/28/19 24 10/28/2023 COMPL ETE BLOOD COUNT W/DIF F eosinophils % 1.5 % Not Available [address] [place], [address] 10/28/2023 13:08:06 10/28/19 24 10/28/2023 COMPL ETE BLOOD COUNT W/DIF F basophils % 0.4 % Not Available [address] [place], [address] 10/28/2023 13:08:06 10/28/19 24 10/28/2023 COMPL ETE BLOOD COUNT W/DIF F immature grans % 0.4 % Not Available [address] [place], [address] 10/28/2023 13:08:06 10/28/19 24 10/28/2023 COMPL ETE BLOOD COUNT W/DIF F nucleated RBC 0.0 % 0.0-0. 3 normal Not Available [address] [place], [address] 10/28/2023 13:08:06 10/28/19 24 10/28/2023 COMPL ETE BLOOD COUNT W/DIF F absolute neutrophil count 5.16 10_3/ uL 1.2-6. 7 normal Not Available [address] [place], [address] 10/28/2023 13:08:06 10/28/19 24 10/28/2023 COMPL ETE BLOOD COUNT W/DIF F absolute lymphocyte count 1.52 10_3/ uL 1.2-3. 4 normal Not Available [address] [place], [address] 10/28/2023 13:08:06 10/28/19 24 10/28/2023 COMPL ETE BLOOD COUNT W/DIF F absolute monocyte count 0.39 10_3/ uL 0.1-0. 8 normal Not Available [address] [place], [address] 10/28/2023 13:08:06 10/28/19 24 10/28/2023 COMPL ETE BLOOD COUNT W/DIF F absolute eosinophil count 0.11 10_3/ uL 0.0-0. 7 normal Not Available [address] [place], [address] 10/28/2023 13:08:06 10/28/19 24 10/28/2023 COMPL ETE BLOOD COUNT W/DIF F absolute basophil count 0.03 10_3/ uL 0.0-0. 2 normal Not Available [address] [place], [address] 10/28/2023 13:08:06 10/28/19 24 10/28/2023 COMPR EHENS BRISSA METAB OLIC PANEL calcium 9.1 mg/dL 8.5-10 .1 normal Not Available [address] [place], [address] 10/28/2023 13:27:10 10/28/19 24 10/28/2023 COMPR EHENS BRISSA METAB OLIC PANEL glucose 98 mg/dL 74-106 normal Not Available [address] [place], [address] 10/28/2023 13:27:10 10/28/19 24 10/28/2023 COMPR EHENS BRISSA METAB OLIC PANEL BUN 8 mg/dL 7-18 normal Not Available [address] [place], [address] 10/28/2023 13:27:10 10/28/19 24 10/28/2023 COMPR EHENS BRISSA METAB OLIC PANEL creatinine 0.4 mg/dL 0.55-1 .02 low Not Available [address] [place], [address] 10/28/2023 13:27:10 10/28/19 24 10/28/2023 COMPR EHENS BRISSA METAB OLIC PANEL estimated GFR 136.46 mL/min /1.73m 2 Not Available [address] [place], [address] 10/28/2023 13:27:10 10/28/19 24 10/28/2023 COMPR EHENS BRISSA METAB OLIC PANEL total protein 7.9 g/dL 6.4-8. 2 normal Not Available [address] [place], [address] 10/28/2023 13:27:10 10/28/19 24 10/28/2023 COMPR EHENS BRISSA METAB OLIC PANEL albumin 3.0 g/dL 3.4-5. 0 low Not Available [address] [place], [address] 10/28/2023 13:27:10 10/28/19 24 10/28/2023 COMPR EHENS BRISSA METAB OLIC PANEL bilirubin, total 0.27 mg/dL 0.2-1. 0 normal Not Available [address] [place], [address] 10/28/2023 13:27:10 10/28/19 24 10/28/2023 COMPR EHENS BRISSA METAB OLIC PANEL alk phos 263 U/L 46-116 high Not Available [address] [place], [address] 10/28/2023 13:27:10 10/28/19 24 10/28/2023 COMPR EHENS BRISSA METAB OLIC PANEL sodium 141 mmol/ L 136-14 5 normal Not Available [address] [place], [address] 10/28/2023 13:27:10 10/28/19 24 10/28/2023 COMPR EHENS BRISSA METAB OLIC PANEL potassium 4.3 mmol/ L 3.5-5. 1 normal Not Available [address] [place], [address] 10/28/2023 13:27:10 10/28/19 24 10/28/2023 COMPR EHENS BRISSA METAB OLIC PANEL chloride 103 mmol/ L 98-107 normal Not Available [address] [place], [address] 10/28/2023 13:27:10 10/28/19 24 10/28/2023 COMPR EHENS BRISSA METAB OLIC PANEL CO2 29.2 mmol/ L 21.0-3 2.0 normal Not Available [address] [place], [address] 10/28/2023 13:27:10 10/28/19 24 10/28/2023 COMPR EHENS BRISSA METAB OLIC PANEL anion gap 8.8 mmol/ L 3-11 normal Not Available [address] [place], [address] 10/28/2023 13:27:10 10/28/19 24 10/28/2023 COMPR EHENS BRISSA METAB OLIC PANEL AST 22 U/L 15-37 normal Not Available [address] [place], [address] 10/28/2023 13:27:10 10/28/19 24 10/28/2023 COMPR EHENS BRISSA METAB OLIC PANEL ALT 54 U/L 14-59 normal Not Available [address] [place], [address] 10/28/2023 13:27:10 10/28/19 24 10/28/2023 C-MARIELOS CTIVE PROTE IN C-reactive protein 13.00 mg/dL <or=0. [address] [facility] (Registration ) [address] [place] [address] [place], [address], 10/28/2023 13:27:11 11/09/19 24 11/09/2023 COMPL ETE BLOOD COUNT W/DIF F WBC 6.51 10_3/ uL 4.4-10 .8 normal Not Available [address] [place], [address] 11/09/2023 17:58:02 11/09/19 24 11/09/2023 COMPL ETE BLOOD COUNT W/DIF F RBC 4.22 10_6/ uL 3.93-5 .22 normal Not Available [address] [place], [address] 11/09/2023 17:58:02 11/09/19 24 11/09/2023 COMPL ETE BLOOD COUNT W/DIF F HGB 11.8 g/dL 11.2-1 5.7 normal Not Available [address] [place], [address] 11/09/2023 17:58:02 11/09/19 24 11/09/2023 COMPL ETE BLOOD COUNT W/DIF F HCT 36.7 % 36.0-4 6.0 normal Not Available [address] [place], [address] 11/09/2023 17:58:02 11/09/19 24 11/09/2023 COMPL ETE BLOOD COUNT W/DIF F MCV 87 fL 80-95 normal Not Available [address] [place], [address] 11/09/2023 17:58:02 11/09/19 24 11/09/2023 COMPL ETE BLOOD COUNT W/DIF F MCH 28.0 pg 27.0-3 3.0 normal Not Available [address] [place], [address] 11/09/2023 17:58:02 11/09/19 24 11/09/2023 COMPL ETE BLOOD COUNT W/DIF F MCHC 32.2 % 32.0-3 6.0 normal Not Available [address] [place], [address] 11/09/2023 17:58:02 11/09/19 24 11/09/2023 COMPL ETE BLOOD COUNT W/DIF F RDW 14.5 % 11.7-1 4.6 normal Not Available [address] [place], [address] 11/09/2023 17:58:02 11/09/19 24 11/09/2023 COMPL ETE BLOOD COUNT W/DIF F platelet count 430 10_3/ uL 130-40 0 high Not Available [address] [place], [address] 11/09/2023 17:58:02 11/09/19 24 11/09/2023 COMPL ETE BLOOD COUNT W/DIF F MPV 9.5 fL 8.0-11 .0 normal Not Available [address] [place], [address] 11/09/2023 17:58:02 11/09/19 24 11/09/2023 COMPL ETE BLOOD COUNT W/DIF F neutrophils % 60.3 % Not Available [address] [place], [address] 11/09/2023 17:58:02 11/09/19 24 11/09/2023 COMPL ETE BLOOD COUNT W/DIF F lymphocytes % 31.0 % Not Available [address] [place], [address] 11/09/2023 17:58:02 11/09/19 24 11/09/2023 COMPL ETE BLOOD COUNT W/DIF F monocytes % 5.7 % Not Available [address] [place], [address] 11/09/2023 17:58:02 11/09/19 24 11/09/2023 COMPL ETE BLOOD COUNT W/DIF F eosinophils % 2.2 % Not Available [address] [place], [address] 11/09/2023 17:58:02 11/09/19 24 11/09/2023 COMPL ETE BLOOD COUNT W/DIF F basophils % 0.6 % Not Available [address] [place], [address] 11/09/2023 17:58:02 11/09/19 24 11/09/2023 COMPL ETE BLOOD COUNT W/DIF F immature grans % 0.2 % Not Available [address] [place], [address] 11/09/2023 17:58:02 11/09/19 24 11/09/2023 COMPL ETE BLOOD COUNT W/DIF F nucleated RBC 0.0 % 0.0-0. 3 normal Not Available [address] [place], [address] 11/09/2023 17:58:02 11/09/19 24 11/09/2023 COMPL ETE BLOOD COUNT W/DIF F absolute neutrophil count 3.93 10_3/ uL 1.2-6. 7 normal Not Available [address] [place], [address] 11/09/2023 17:58:02 11/09/19 24 11/09/2023 COMPL ETE BLOOD COUNT W/DIF F absolute lymphocyte count 2.02 10_3/ uL 1.2-3. 4 normal Not Available [address] [place], [address] 11/09/2023 17:58:02 11/09/19 24 11/09/2023 COMPL ETE BLOOD COUNT W/DIF F absolute monocyte count 0.37 10_3/ uL 0.1-0. 8 normal Not Available [address] [place], [address] 11/09/2023 17:58:02 11/09/19 24 11/09/2023 COMPL ETE BLOOD COUNT W/DIF F absolute eosinophil count 0.14 10_3/ uL 0.0-0. 7 normal Not Available [address] [place], [address] 11/09/2023 17:58:02 11/09/19 24 11/09/2023 COMPL ETE BLOOD COUNT W/DIF F absolute basophil count 0.04 10_3/ uL 0.0-0. 2 normal Not Available [address] [place], [address] 11/09/2023 17:58:02 11/09/19 24 11/09/2023 COMPR EHENS BRISSA METAB OLIC PANEL calcium 9.1 mg/dL 8.5-10 .1 normal Not Available [address] [place], [address] 11/09/2023 18:20:06 11/09/19 24 11/09/2023 COMPR EHENS BRISSA METAB OLIC PANEL glucose 119 mg/dL 74-106 high Not Available [address] [place], [address] 11/09/2023 18:20:06 11/09/19 24 11/09/2023 COMPR EHENS BRISSA METAB OLIC PANEL BUN 30 mg/dL 7-18 high Not Available [address] [place], [address] 11/09/2023 18:20:06 11/09/19 24 11/09/2023 COMPR EHENS BRISSA METAB OLIC PANEL creatinine 1.2 mg/dL 0.55-1 .02 high Not Available [address] [place], [address] 11/09/2023 18:20:06 11/09/19 24 11/09/2023 COMPR EHENS BRISSA METAB OLIC PANEL estimated GFR 62.45 mL/min /1.73m 2 Not Available [address] [place], [address] 11/09/2023 18:20:06 11/09/19 24 11/09/2023 COMPR EHENS BRISSA METAB OLIC PANEL total protein 7.4 g/dL 6.4-8. 2 normal Not Available [address] [place], [address] 11/09/2023 18:20:06 11/09/19 24 11/09/2023 COMPR EHENS BRISSA METAB OLIC PANEL albumin 3.3 g/dL 3.4-5. 0 low Not Available [address] [place], [address] 11/09/2023 18:20:06 11/09/19 24 11/09/2023 COMPR EHENS BRISSA METAB OLIC PANEL bilirubin, total 0.36 mg/dL 0.2-1. 0 normal Not Available [address] [place], [address] 11/09/2023 18:20:06 11/09/19 24 11/09/2023 COMPR EHENS BRISSA METAB OLIC PANEL alk phos 129 U/L 46-116 high Not Available [address] [place], [address] 11/09/2023 18:20:06 11/09/19 24 11/09/2023 COMPR EHENS BRISSA METAB OLIC PANEL sodium 128 mmol/ L 136-14 5 low Not Available [address] [place], [address] 11/09/2023 18:20:06 11/09/19 24 11/09/2023 COMPR EHENS BRISSA METAB OLIC PANEL potassium 4.3 mmol/ L 3.5-5. 1 normal Not Available [address] [place], [address] 11/09/2023 18:20:06 11/09/19 24 11/09/2023 COMPR EHENS BRISSA METAB OLIC PANEL chloride 92 mmol/ L 98-107 low Not Available [address] [place], [address] 11/09/2023 18:20:06 11/09/19 24 11/09/2023 COMPR EHENS BRISSA METAB OLIC PANEL CO2 26.0 mmol/ L 21.0-3 2.0 normal Not Available [address] [place], [address] 11/09/2023 18:20:06 11/09/19 24 11/09/2023 COMPR EHENS BRISSA METAB OLIC PANEL anion gap 10.0 mmol/ L 3-11 normal Not Available [address] [place], [address] 11/09/2023 18:20:06 11/09/19 24 11/09/2023 COMPR EHENS BRISSA METAB OLIC PANEL AST 29 U/L 15-37 normal Not Available [address] [place], [address] 11/09/2023 18:20:06 11/09/19 24 11/09/2023 COMPR EHENS BRISSA METAB OLIC PANEL ALT 40 U/L 14-59 normal Not Available [address] [place], [address] 11/09/2023 18:20:06 11/09/19 24 11/09/2023 C-MARIELOS CTIVE PROTE IN C-reactive protein 3.21 mg/dL <or=0. 5 high Not Available [address] [place], [address] 11/09/2023 18:20:06 11/09/19 24 11/09/2023 C-MARIELOS CTIVE PROTE IN C-reactive protein 3.21 mg/dL <or=0. 5 high Not Available [address] [place], [address] 11/09/2023 19:28:31 11/09/19 24 11/09/2023 COMPR EHENS BRISSA METAB OLIC PANEL calcium 9.4 mg/dL 8.5-10 .1 normal Not Available [address] [place], [address] 11/09/2023 19:48:30 11/09/19 24 11/09/2023 COMPR EHENS BRISSA METAB OLIC PANEL glucose 114 mg/dL 74-106 high Not Available [address] [place], [address] 11/09/2023 19:48:30 11/09/19 24 11/09/2023 COMPR EHENS BRISSA METAB OLIC PANEL BUN 11 mg/dL 7-18 normal Not Available [address] [place], [address] 11/09/2023 19:48:30 11/09/19 24 11/09/2023 COMPR EHENS BRISSA METAB OLIC PANEL creatinine 0.4 mg/dL 0.55-1 .02 low Not Available [address] [place], [address] 11/09/2023 19:48:30 11/09/19 24 11/09/2023 COMPR EHENS BRISSA METAB OLIC PANEL estimated GFR 136.46 mL/min /1.73m 2 Not Available [address] [place], [address] 11/09/2023 19:48:30 11/09/19 24 11/09/2023 COMPR EHENS BRISSA METAB OLIC PANEL total protein 7.7 g/dL 6.4-8. 2 normal Not Available [address] [place], [address] 11/09/2023 19:48:30 11/09/19 24 11/09/2023 COMPR EHENS BRISSA METAB OLIC PANEL albumin 3.1 g/dL 3.4-5. 0 low Not Available [address] [place], [address] 11/09/2023 19:48:30 11/09/19 24 11/09/2023 COMPR EHENS BRISSA METAB OLIC PANEL bilirubin, total 0.12 mg/dL 0.2-1. 0 low Not Available [address] [place], [address] 11/09/2023 19:48:30 11/09/19 24 11/09/2023 COMPR EHENS BRISSA METAB OLIC PANEL alk phos 213 U/L 46-116 high Not Available [address] [place], [address] 11/09/2023 19:48:30 11/09/19 24 11/09/2023 COMPR EHENS BRISSA METAB OLIC PANEL sodium 140 mmol/ L 136-14 5 normal Not Available [address] [place], [address] 11/09/2023 19:48:30 11/09/19 24 11/09/2023 COMPR EHENS BRISSA METAB OLIC PANEL potassium 3.9 mmol/ L 3.5-5. 1 normal Not Available [address] [place], [address] 11/09/2023 19:48:30 11/09/19 24 11/09/2023 COMPR EHENS BRISSA METAB OLIC PANEL chloride 102 mmol/ L 98-107 normal Not Available [address] [place], [address] 11/09/2023 19:48:30 11/09/19 24 11/09/2023 COMPR EHENS BRISSA METAB OLIC PANEL CO2 26.8 mmol/ L 21.0-3 2.0 normal Not Available [address] [place], [address] 11/09/2023 19:48:30 11/09/19 24 11/09/2023 COMPR EHENS BRISSA METAB OLIC PANEL anion gap 11.2 mmol/ L 3-11 high Not Available [address] [place], [address] 11/09/2023 19:48:30 11/09/19 24 11/09/2023 COMPR EHENS BRISSA METAB OLIC PANEL AST 20 U/L 15-37 normal Not Available [address] [place], [address] 11/09/2023 19:48:30 11/09/19 24 11/09/2023 COMPR EHENS BRISSA METAB OLIC PANEL ALT 56 U/L 14-59 normal Not Available [address] [place], [address] 11/09/2023 19:48:30 11/09/19 24 11/09/2023 C-MARIELOS CTIVE PROTE IN C-reactive protein 3.39 mg/dL <or=0. 5 high Not Available [address] [place], [address] 11/09/2023 19:48:30 11/16/19 24 11/16/2023 COMPL ETE BLOOD COUNT W/DIF F WBC 3.75 10_3/ uL 4.4-10 .8 low Not Available [address] [place], [address] 11/16/2023 13:50:58 11/16/19 24 11/16/2023 COMPL ETE BLOOD COUNT W/DIF F RBC 4.38 10_6/ uL 3.93-5 .22 normal Not Available [address] [place], [address] 11/16/2023 13:50:58 11/16/19 24 11/16/2023 COMPL ETE BLOOD COUNT W/DIF F HGB 12.2 g/dL 11.2-1 5.7 normal Not Available [address] [place], [address] 11/16/2023 13:50:58 11/16/19 24 11/16/2023 COMPL ETE BLOOD COUNT W/DIF F HCT 38.3 % 36.0-4 6.0 normal Not Available [address] [place], [address] 11/16/2023 13:50:58 11/16/19 24 11/16/2023 COMPL ETE BLOOD COUNT W/DIF F MCV 87 fL 80-95 normal Not Available [address] [place], [address] 11/16/2023 13:50:58 11/16/19 24 11/16/2023 COMPL ETE BLOOD COUNT W/DIF F MCH 27.9 pg 27.0-3 3.0 normal Not Available [address] [place], [address] 11/16/2023 13:50:58 11/16/19 24 11/16/2023 COMPL ETE BLOOD COUNT W/DIF F MCHC 31.9 % 32.0-3 6.0 low Not Available [address] [place], [address] 11/16/2023 13:50:58 11/16/19 24 11/16/2023 COMPL ETE BLOOD COUNT W/DIF F RDW 14.4 % 11.7-1 4.6 normal Not Available [address] [place], [address] 11/16/2023 13:50:58 11/16/19 24 11/16/2023 COMPL ETE BLOOD COUNT W/DIF F platelet count 319 10_3/ uL 130-40 0 normal Not Available [address] [place], [address] 11/16/2023 13:50:58 11/16/19 24 11/16/2023 COMPL ETE BLOOD COUNT W/DIF F MPV 10.1 fL 8.0-11 .0 normal Not Available [address] [place], [address] 11/16/2023 13:50:58 11/16/19 24 11/16/2023 COMPL ETE BLOOD COUNT W/DIF F neutrophils % 53.6 % Not Available [address] [place], [address] 11/16/2023 13:50:58 11/16/19 24 11/16/2023 COMPL ETE BLOOD COUNT W/DIF F lymphocytes % 34.9 % Not Available [address] [place], [address] 11/16/2023 13:50:58 11/16/19 24 11/16/2023 COMPL ETE BLOOD COUNT W/DIF F monocytes % 6.4 % Not Available Michaela hutton[address] [place], [address] 11/16/2023 13:50:58 11/16/19 24 11/16/2023 COMPL ETE BLOOD COUNT W/DIF F eosinophils % 4.0 % Not Available [address] [place], [address] 11/16/2023 13:50:58 11/16/19 24 11/16/2023 COMPL ETE BLOOD COUNT W/DIF F basophils % 0.8 % Not Available [facility] [address] [place], [address] 11/16/2023 13:50:58 11/16/19 24 11/16/2023 COMPL ETE BLOOD COUNT W/DIF F immature grans % 0.3 % Not Available [address] [place], [address] 11/16/2023 13:50:58 11/16/19 24 11/16/2023 COMPL ETE BLOOD COUNT W/DIF F nucleated RBC 0.0 % 0.0-0. 3 normal Not Available [address] [place], [address] 11/16/2023 13:50:58 11/16/19 24 11/16/2023 COMPL ETE BLOOD COUNT W/DIF F absolute neutrophil count 2.01 10_3/ uL 1.2-6. 7 normal Not Available [address] [place], [address] 11/16/2023 13:50:58 11/16/19 24 11/16/2023 COMPL ETE BLOOD COUNT W/DIF F absolute lymphocyte count 1.31 10_3/ uL 1.2-3. 4 normal Not Available [address] [place], [address] 11/16/2023 13:50:58 11/16/19 24 11/16/2023 COMPL ETE BLOOD COUNT W/DIF F absolute monocyte count 0.24 10_3/ uL 0.1-0. 8 normal Not Available [address] [place], [address] 11/16/2023 13:50:58 11/16/19 24 11/16/2023 COMPL ETE BLOOD COUNT W/DIF F absolute eosinophil count 0.15 10_3/ uL 0.0-0. 7 normal Not Available [address] [place], [address] 11/16/2023 13:50:58 11/16/19 24 11/16/2023 COMPL ETE BLOOD COUNT W/DIF F absolute basophil count 0.03 10_3/ uL 0.0-0. 2 normal Not Available [address] [place], [address] 11/16/2023 13:50:58 11/16/19 24 11/16/2023 COMPR EHENS BRISSA METAB OLIC PANEL calcium 8.9 mg/dL 8.5-10 .1 normal Not Available [address] [place], [address] 11/16/2023 14:42:19 11/16/19 24 11/16/2023 COMPR EHENS BRISSA METAB OLIC PANEL glucose 108 mg/dL 74-106 high Not Available [address] [place], [address] 11/16/2023 14:42:19 11/16/19 24 11/16/2023 COMPR EHENS BRISSA METAB OLIC PANEL BUN 13 mg/dL 7-18 normal Not Available [address] [place], [address] 11/16/2023 14:42:19 11/16/19 24 11/16/2023 COMPR EHENS BRISSA METAB OLIC PANEL creatinine 0.4 mg/dL 0.55-1 .02 low Not Available [address] [place], [address] 11/16/2023 14:42:19 11/16/19 24 11/16/2023 COMPR EHENS BRISSA METAB OLIC PANEL estimated GFR 136.46 mL/min /1.73m 2 Not Available [address] [place], [address] 11/16/2023 14:42:19 11/16/19 24 11/16/2023 COMPR EHENS BRISSA METAB OLIC PANEL total protein 7.5 g/dL 6.4-8. 2 normal Not Available [address] [place], [address] 11/16/2023 14:42:19 11/16/19 24 11/16/2023 COMPR EHENS BRISSA METAB OLIC PANEL albumin 3.1 g/dL 3.4-5. 0 low Not Available [address] [place], [address] 11/16/2023 14:42:19 11/16/19 24 11/16/2023 COMPR EHENS BRISSA METAB OLIC PANEL bilirubin, total 0.20 mg/dL 0.2-1. 0 normal Not Available [address] [place], [address] 11/16/2023 14:42:19 11/16/19 24 11/16/2023 COMPR EHENS BIRSSA METAB OLIC PANEL alk phos 192 U/L 46-116 high Not Available [address] [place], [address] 11/16/2023 14:42:19 11/16/19 24 11/16/2023 COMPR EHENS BRISSA METAB OLIC PANEL sodium 144 mmol/ L 136-14 5 normal Not Available [address] [place], [address] 11/16/2023 14:42:19 11/16/19 24 11/16/2023 COMPR EHENS BRISSA METAB OLIC PANEL potassium 4.0 mmol/ L 3.5-5. 1 normal Not Available [address] [place], [address] 11/16/2023 14:42:19 11/16/19 24 11/16/2023 COMPR EHENS BRISSA METAB OLIC PANEL chloride 107 mmol/ L 98-107 normal Not Available [address] [place], [address] 11/16/2023 14:42:19 11/16/19 24 11/16/2023 COMPR EHENS BRISSA METAB OLIC PANEL CO2 28.9 mmol/ L 21.0-3 2.0 normal Not Available [address] [place], [address] 11/16/2023 14:42:19 11/16/19 24 11/16/2023 COMPR EHENS BRISSA METAB OLIC PANEL anion gap 8.1 mmol/ L 3-11 normal Not Available [address] [place], [address] 11/16/2023 14:42:19 11/16/19 24 11/16/2023 COMPR EHENS BRISSA METAB OLIC PANEL AST 38 U/L 15-37 high Not Available [address] [place], [address] 11/16/2023 14:42:19 11/16/19 24 11/16/2023 COMPR EHENS BRISSA METAB OLIC PANEL ALT 75 U/L 14-59 high Not Available [address] [place], [address] 11/16/2023 14:42:19 11/16/19 24 11/16/2023 C-MARIELOS CTIVE PROTE IN C-reactive protein 1.57 mg/dL <or=0. 5 high Not Available [address] [place], [address] 11/16/2023 14:42:19 11/23/19 24 11/23/2023 COMPL ETE BLOOD COUNT W/DIF F WBC 4.40 10_3/ uL 4.4-10 .8 normal Not Available [address] [place], [address] 11/23/2023 13:45:24 11/23/19 24 11/23/2023 COMPL ETE BLOOD COUNT W/DIF F RBC 4.32 10_6/ uL 3.93-5 .22 normal Not Available [address] [place], [address] 11/23/2023 13:45:24 11/23/19 24 11/23/2023 COMPL ETE BLOOD COUNT W/DIF F HGB 12.2 g/dL 11.2-1 5.7 normal Not Available [address] [place], [address] 11/23/2023 13:45:24 11/23/19 24 11/23/2023 COMPL ETE BLOOD COUNT W/DIF F HCT 37.2 % 36.0-4 6.0 normal Not Available [address] [place], [address] 11/23/2023 13:45:24 11/23/19 24 11/23/2023 COMPL ETE BLOOD COUNT W/DIF F MCV 86 fL 80-95 normal Not Available [address] [place], [address] 11/23/2023 13:45:24 11/23/19 24 11/23/2023 COMPL ETE BLOOD COUNT W/DIF F MCH 28.2 pg 27.0-3 3.0 normal Not Available [address] [place], [address] 11/23/2023 13:45:24 11/23/19 24 11/23/2023 COMPL ETE BLOOD COUNT W/DIF F MCHC 32.8 % 32.0-3 6.0 normal Not Available [address] [place], [address] 11/23/2023 13:45:24 11/23/19 24 11/23/2023 COMPL ETE BLOOD COUNT W/DIF F RDW 15.2 % 11.7-1 4.6 high Not Available [address] [place], [address] 11/23/2023 13:45:24 11/23/19 24 11/23/2023 COMPL ETE BLOOD COUNT W/DIF F platelet count 269 10_3/ uL 130-40 0 normal Not Available [address] [place], [address] 11/23/2023 13:45:24 11/23/19 24 11/23/2023 COMPL ETE BLOOD COUNT W/DIF F MPV 10.2 fL 8.0-11 .0 normal Not Available [address] [place], [address] 11/23/2023 13:45:24 11/23/19 24 11/23/2023 COMPL ETE BLOOD COUNT W/DIF F neutrophils % 52.3 % Not Available [address] [place], [address] 11/23/2023 13:45:24 11/23/19 24 11/23/2023 COMPL ETE BLOOD COUNT W/DIF F lymphocytes % 35.7 % Not Available [address] [place], [address] 11/23/2023 13:45:24 11/23/19 24 11/23/2023 COMPL ETE BLOOD COUNT W/DIF F monocytes % 8.6 % Not Available [address] [place], [address] 11/23/2023 13:45:24 11/23/19 24 11/23/2023 COMPL ETE BLOOD COUNT W/DIF F eosinophils % 2.5 % Not Available [address] [place], [address] 11/23/2023 13:45:24 11/23/19 24 11/23/2023 COMPL ETE BLOOD COUNT W/DIF F basophils % 0.7 % Not Available [address] [place], [address] 11/23/2023 13:45:24 11/23/19 24 11/23/2023 COMPL ETE BLOOD COUNT W/DIF F immature grans % 0.2 % Not Available [address] [place], [address] 11/23/2023 13:45:24 11/23/19 24 11/23/2023 COMPL ETE BLOOD COUNT W/DIF F nucleated RBC 0.0 % 0.0-0. 3 normal Not Available [address] [place], [address] 11/23/2023 13:45:24 11/23/19 24 11/23/2023 COMPL ETE BLOOD COUNT W/DIF F absolute neutrophil count 2.30 10_3/ uL 1.2-6. 7 normal Not Available [address] [place], [address] 11/23/2023 13:45:24 11/23/19 24 11/23/2023 COMPL ETE BLOOD COUNT W/DIF F absolute lymphocyte count 1.57 10_3/ uL 1.2-3. 4 normal Not Available [address] [place], [address] 11/23/2023 13:45:24 11/23/19 24 11/23/2023 COMPL ETE BLOOD COUNT W/DIF F absolute monocyte count 0.38 10_3/ uL 0.1-0. 8 normal Not Available [address] [place], [address] 11/23/2023 13:45:24 11/23/19 24 11/23/2023 COMPL ETE BLOOD COUNT W/DIF F absolute eosinophil count 0.11 10_3/ uL 0.0-0. 7 normal Not Available [address] [place], [address] 11/23/2023 13:45:24 11/23/19 24 11/23/2023 COMPL ETE BLOOD COUNT W/DIF F absolute basophil count 0.03 10_3/ uL 0.0-0. 2 normal Not Available [address] [place], [address] 11/23/2023 13:45:24 11/23/19 24 11/23/2023 COMPR EHENS BRISSA METAB OLIC PANEL calcium 9.3 mg/dL 8.5-10 .1 normal Not Available [address] [place], [address] 11/23/2023 13:52:24 11/23/19 24 11/23/2023 COMPR EHENS BRISSA METAB OLIC PANEL glucose 90 mg/dL 74-106 normal Not Available [address] [place], [address] 11/23/2023 13:52:24 11/23/19 24 11/23/2023 COMPR EHENS BRISSA METAB OLIC PANEL BUN 16 mg/dL 7-18 normal Not Available [address] [place], [address] 11/23/2023 13:52:24 11/23/19 24 11/23/2023 COMPR EHENS BRISSA METAB OLIC PANEL creatinine 0.3 mg/dL 0.55-1 .02 low Not Available [address] [place], [address] 11/23/2023 13:52:24 11/23/19 24 11/23/2023 COMPR EHENS BRISSA METAB OLIC PANEL estimated GFR 146.26 mL/min /1.73m 2 Not Available [address] [place], [address] 11/23/2023 13:52:24 11/23/19 24 11/23/2023 COMPR EHENS BRISSA METAB OLIC PANEL total protein 7.6 g/dL 6.4-8. 2 normal Not Available [address] [place], [address] 11/23/2023 13:52:24 11/23/19 24 11/23/2023 COMPR EHENS BRISSA METAB OLIC PANEL albumin 3.3 g/dL 3.4-5. 0 low Not Available [address] [place], [address] 11/23/2023 13:52:24 11/23/19 24 11/23/2023 COMPR EHENS BRISSA METAB OLIC PANEL bilirubin, total 0.22 mg/dL 0.2-1. 0 normal Not Available [address] [place], [address] 11/23/2023 13:52:24 11/23/19 24 11/23/2023 COMPR EHENS BRISSA METAB OLIC PANEL alk phos 201 U/L 46-116 high Not Available [address] [place], [address] 11/23/2023 13:52:24 11/23/19 24 11/23/2023 COMPR EHENS BRISSA METAB OLIC PANEL sodium 145 mmol/ L 136-14 5 normal Not Available [address] [place], [address] 11/23/2023 13:52:24 11/23/19 24 11/23/2023 COMPR EHENS BRISSA METAB OLIC PANEL potassium 3.8 mmol/ L 3.5-5. 1 normal Not Available [address] [place], [address] 11/23/2023 13:52:24 11/23/19 24 11/23/2023 COMPR EHENS BRISSA METAB OLIC PANEL chloride 107 mmol/ L 98-107 normal Not Available [address] [place], [address] 11/23/2023 13:52:24 11/23/19 24 11/23/2023 COMPR EHENS BRISSA METAB OLIC PANEL CO2 29.8 mmol/ L 21.0-3 2.0 normal Not Available [address] [place], [address] 11/23/2023 13:52:24 11/23/19 24 11/23/2023 COMPR EHENS BRISSA METAB OLIC PANEL anion gap 8.2 mmol/ L 3-11 normal Not Available [address] [place], [address] 11/23/2023 13:52:24 11/23/19 24 11/23/2023 COMPR EHENS BRISSA METAB OLIC PANEL AST 40 U/L 15-37 high Not Available [address] [place], [address] 11/23/2023 13:52:24 11/23/19 24 11/23/2023 COMPR EHENS BRISSA METAB OLIC PANEL ALT 83 U/L 14-59 high Not Available [address] [place], [address] 11/23/2023 13:52:24 11/23/19 24 11/23/2023 C-MARIELOS CTIVE PROTE IN C-reactive protein 2.24 mg/dL <or=0. 5 high Not Available [address] [place], [address] 11/23/2023 13:52:24 06/10/19 24 06/10/2023 x-ray imagi ng repor t Patiqamar t Name: Tana Cavazos Unit #: [id number] Loc: DI Orderi ng Provid er: Caleb Lopez M.D. Accindiana t #: [id number] Status : REG CLI Primar [...] t positi oning and scolio sis. 2. Geriatric Case Manager ior spinal rods within a right convex thorac olumba r scolio sis. 3. No defini te acute fractu re is identi fied. DATA REPOSI TORY: RADIAT ION DOSE DELIVE RED: Ordere d By: aCleb Lopez M.D. CC: ------ ------ ------ ------ ------ ------ ------ ------ ------ ------ ------ ------ - Dictat ed By: Anurag Frost M.D. [id number] Transc ribed By: Anurag Frost 124 This is privil eged, confid ential inform ation intend ed only for the provid er named. Any use or distri bution by any person other than this provid er is strict ly prohib ited. If you receiv e this report in error, please notify us immedi corina at and return the origin al report to us at the addres s above. Thank- you. [place] [id number], [place], [address] 06/11/2023 05:27:44 06/10/19 24 06/10/2023 x-ray imagi ng repor t Patien t Name: Tana Cavazos Unit #: [id number] Loc: DI Orderi ng Provid er: LORENADRIAN JUSTUSGILSON Accoun t #: [id number] Status : REG CLI Primar y Care [...] at the addres s above. Thank- you. [facility] [address], [place], [address] 06/11/2023 05:27:45 Result Notes None recorded. Problems Name Status Onset Date Resolution Date Notes Provider Name and Address Organization Details Recorded Time Consciousness and/or awareness finding Active 2016 Problem Code: R41.89; Problem Code Type: ICD-10; LORNA MARTINEZ APRN [address], [place], [address] , [facility] 3 06:06:35 Tetraplegia Active 201609/02/2018 - Comments only - Lorna Martinez STUDENT SERVICES REPRESENTATIVE - with cognitive dysfunction, scoliosis, spasticity, hypotnoia, [...] them since not able to get through [facility]. Needs new TLSO for her back, current [...] Problem Code Type: ICD-10; [address], [place], [address] , [facility] 3 06:06:34 Scoliosis deformity of spine Active 2016 Problem Code: M41.9; Problem Code Type: ICD-10; [address], [place], [address] , [facility] 3 06:06:35 Spasm Active 201603/02/2017 - Comments only - Emelyn Easley MD - Patient will need on going physical therapy to help prevent worsening spasticity and contractures. Problem Code: R25.2; Problem Code Type: ICD-10; [address], [place], [address] , [facility] 3 06:06:35 Idiopathic urticaria Active 2016 Problem Code: L50.1; Problem Code Type: ICD-10; [address], [place], [address] , [facility] 3 06:06:35 Supraventricu lar tachycardia Active 201606/08/2017 - Comments only - Lorna Martinez APRN - monitor for now. Problem Code: I47.1; Problem Code Type: ICD-10; [address], [place], [address] , [facility] 3 06:06:35 Traumatic or non-traumatic injury Active 2016 Problem Code: T14.90; Problem Code Type: ICD-10; LORNA MARTINEZ APRN [address], [place], [address] , [facility] 3 06:06:35 Disorder of muscle Active 201610/20/2016 - Comments only - Emelyn Esaley MD - This causes some constipation that has been improved by miralax. Problem Code: M62.9; Problem Code Type: ICD-10; LORNA MARTINEZ APRN [address], [place], [address] , [facility] 3 06:06:35 Adult health examination Active 201610/20/2016 [...] ICD-10; LORNA MARTINEZ APRN [address], [place], [address] , [facility] 3 06:06:35 Impacted cerumen of bilateral ears Completed 201609/29/2016 09/15/2016 - Comments only - Jade Arevalo CURRICULUM COACH - Rev'd procedure for cerumen removal using [...] H61.23; Problem Code Type: ICD-10; Not Available [facility] 3 03:53:19 Impacted cerumen Active 201612/03/2016 - Comments only - Jade Arevalo CURRICULUM COACH - - Cerumen not impacted today. Recommended to continue regular checks at future visits, discussed appropriate ear hygiene, and advised f/u for development of symptoms such as ear pulling/pain or trouble hearing. The patient verbalized understanding and agreement to this care plan. Problem Code: H61.20; Problem Code Type: ICD-10; [address], [place], [address] , [facility] 3 06:06:35 Pre-surgery evaluation Completed 201601/09/2017 12/26/2016 - Comments only - Jade Arevalo CURRICULUM COACH - - Pt presents for pre-op physical as she is having a DEXA scan on 12/30 at [facility] and they have requested that she has a physical within the last 30 days. There are no concerns raised by her aid who is with her, and no findings on exam that suggest she should not move forward with procedure as scheduled. Problem Code: Z01.818; Problem Code Type: ICD-10; Not Available [facility] 3 03:53:19 Contracture of joint of hand Active 201606/08/2017 - Comments only - Lorna Martinez APRN - continue wearing splint during the day. Wash cloth in her hand while sleeping. Continue with routine stretching and movement as able. Problem Code: M24.549; Problem Code Type: ICD-10; [address], [place], [address] , [facility] 3 06:06:35 History of skin and/or subcutaneous tissue disease Active 201706/08/2017 - Comments only - Lorna Martinez APRN - has seen podiatry. Monitor feet routinely. Problem Code: Z87.2; Problem Code Type: ICD-10; [address], [place], [address] , [facility] 3 06:06:35 Disorder of tooth development Completed 201703/11/2018 Problem Code: K00.9; Problem Code Type: ICD-10; Not Available [facility] 3 03:53:19 Exposure to communicable disease Completed 202004/03/2021 Problem Code: Z20.828; Problem Code Type: ICD-10; Not Available [facility] 3 03:53:20 Localized eruption of skin Completed 202112/08/2021 Problem Code: R21; Problem Code Type: ICD-10; Not Available [facility] 3 03:53:20 Disorder of skin appendage Completed 202112/08/2021 Problem Code: L73.9; Problem Code Type: ICD-10; Not Available [facility] 3 03:53:20 Sepsis caused by Escherichia coli Active 202208/07/2022 - Comments only - Lorna Martinez APRN - continue mgmt through specialist. Blood drawn, may not be enough of sample but will send. If not enough, will need to come to office. drawn CBCD, CRP, CMP. Problem Code: A41.51; Problem Code Type: ICD-10; [address], [place], [address] , [facility] 3 06:06:35 Constipation Active 2022 Problem Code: K59.00; Problem Code Type: ICD-10; [address], [place], [address] , [facility], [facility] 3 06:06:35 Spinal cord abscess Active [address], [place], [address] , [facility] 3 06:06:35 High enzyme level in serum Active 2022 Problem Code: R74.8; Problem Code Type: ICD-10; [address], [facility] [address] , [facility] 3 06:06:35 Anemia Active 2022 Problem Code: D64.9; Problem Code Type: ICD-10; [address], [facility] [address] , [facility] 3 06:06:35 Vitamin D deficiency Active 2022 4.4.24- After completes current HD vitamin D she is to change to vitamin D 5000 IU once a day khb. [address], [facility] [address] , [facility] 4 07:57:05 Osteomyelitis Active 2022 Problem Code: M86.9; Problem Code Type: ICD-10; [address], [facility] [address] , [facility] 3 06:06:35 Congenital deformity of spine Active 2022 Problem Code: Q67.5; Problem Code Type: ICD-10; [address], [facility] [address] , [facility] 3 06:06:35 Chronic osteomyelitis with draining sinus Active 2022 Problem Code: M86.48; Problem Code Type: ICD-10; [address], [facility] [address] , [facility] 3 06:06:35 Fever Completed 202011/07/2021 Problem Code: R50.9; Problem Code Type: ICD-10; Not Available [facility] 3 03:53:22 Pain of toe of left foot Completed 201603/02/2017 Problem Code: M79.675; Problem Code Type: ICD-10; Not Available [facility] 3 03:53:23 Tinea pedis Completed 201607/17/2020 Problem Code: B35.3; Problem Code Type: ICD-10; Not Available [facility] 3 03:53:23 Device in situ Completed 201609/02/2018 Problem Code: Z97.8; Problem Code Type: ICD-10; Not Available [facility] 3 03:53:24 Closed fracture of lower leg Completed 201607/17/2020 Problem Code: S82.90xD; Problem Code Type: ICD-10; Not Available [facility] 3 03:53:27 Pain of right wrist Completed 202011/07/2021 Problem Code: M25.531; Problem Code Type: ICD-10; Not Available [facility] 3 03:53:27 Disorder of skin and/or subcutaneous tissue Completed 201807/17/2020 Problem Code: L98.9; Problem Code Type: ICD-10; Not Available [facility] 3 03:53:28 Pain in right hip joint Completed 202011/07/2021 Problem Code: M25.551; Problem Code Type: ICD-10; Not Available [facility] 3 03:53:30 Muscle pain Completed 202011/07/2021 Problem Code: M79.10; Problem Code Type: ICD-10; Not Available [facility] 3 03:53:32 Pain in right lower limb Completed 201607/17/2020 Problem Code: M79.604; Problem Code Type: ICD-10; Not Available [facility] 3 03:53:32 Vaccine adverse reaction Completed 201911/07/2021 Not Available [facility] 3 03:53:33 Chronic ulcer of foot Completed 201707/17/2020 Problem Code: L97.529; Problem Code Type: ICD-10; Not Available [facility] 3 03:53:33 Accidental fall Completed 201807/17/2020 Not Available [facility] 3 03:53:34 Cellulitis of toe Completed 201605/08/2017 Problem Code: L03.039; Problem Code Type: ICD-10; Not Available [facility] 3 03:53:35 Pre-surgery evaluation Completed 202202/22/2023 Problem Code: Z01.818; Problem Code Type: ICD-10; Not Available [facility] 4 05:38:03 Intertrigo Active 2023 Martha Lopez RN [facility], [facility] 4 09:39:19 Thrombocytosi s Active 2023 LORNA MARTINEZ APRN [address], [facility] [address] [facility] 4 21:17:57 Impacted cerumen Active 2023 LORNA MARTINEZ APRN [address], [facility] [address] [facility] 4 10:33:20 Notes:*Problem Name: Oliguri a and anuria *Problem Status: active *Comments: *Problem Code: R34 *Problem Code Type: ICD-10 *Note Date: 03/04/2018 Problem Notes None recorded. Procedures Surgical History None recorded. Imaging Results Imaging Date Name Status LastModified by Organiz ation Details LastModified Time 06/10/2023 x-ray imaging report completed [address] [facility] [address] 06/11/2023 05:27:44 06/10/2023 x-ray imaging report completed [address] [facility] [address] 06/11/2023 05:27:45 Procedure Notes None recorded. Medical Equipment None Reported. Allergies Allergen ID Allergen Name Allergen Category Reaction Reaction Severity Criticality Documentation Date Start Date Code Code System Note Provider Name and Address Organization Details Recorded Time 46042 fluoxetin e hydrochlo ride medicatio n other mild Not available 03/06/20232018 86020 4 RxNorm unsur e Aller gyRea ction : 'unsu re'; Not Available [facility] 16:14:36 38402 doxycycli ne Not available rash severe Not available 03/06/20232022 3640 RxNorm Aller gyRea ction : 'Rash , Gast[place] ointe avelino l,'; Not Available [facility] 3 16:14:36 Medications Name Sig Start Date Stop Date Status Note LastModified by Organization Details LastModified Time acetamino phen 325 mg tablet Take 3 tablet by mouth every eight hours as needed active Per [facility] d/c summary 02/25/23 [...] eight hours as needed 07/23 completed Per [facility] d/c summary 02/25/23 [...] daily to affected area 07/23 completed Per [facility] d/c summary 02/25/23 [...] three times a day 09/27 completed last [facility] Infectio us note stated Bactrim DS 800-160m g 1 BID Not Available Not Available Not Available sodium chloride 0.9 % (flush) injection syringe Infuse 10ml into venous catheter 2 times a day 07/23 completed Per [facility] d/c summary 02/25/23 Not Available Not Available Not Available ceftriaxo ne 2 gram/50 mL in dextrose (iso-osm) intraveno us piggyback Infuse 2 gram intraven ously once a day Infuse 50ml (2g total) into a venous catheter daily 07/23 completed Per [facility] d/c summary 02/25/23 [...] 2022 active Not Available Not Available Not Sean orantes daptomyci n 350 mg intraveno us solution Infuse 350 mg intraven ously once a day every 24 hours 07/23 completed Not Available Not Available Not Available lidocaine HCl 4 % topical patch Apply 2 patch to skin once a day Place 2 patches on skin once daily (leave on for 12 hours, then remove patch for 12 patch free hours) 07/23 completed Per [facility] d/c summary 02/25/23 Not Available Not Available Not Available baclofen 15 mg tablet Take 1 tablet 3 times a day by oral route for 3 days. 2023 active Not Available Not Available Not Sean orantes Vitals Date Recorded Body height Body mass index (BMI) Body weight Systolic blood pressure Diastolic blood pressure Provider Name and Address Organization Details Last Updated DateTime 04/24/2023 157.48 cm 22.7 kg/m2 71332.45 g 98 mm[Hg] 68 mm[Hg] YOGESH BENDER [facility] 3 09:07:06 Date Recorded Body height Body mass index (BMI) Body weight Oxygen saturation Oxygen saturation in Arterial blood by Pulse oximetry Heart rate Systolic blood pressure Diastolic blood pressure Provider Name and Address Organization Details Last Updated DateTime 4 157.48 cm 22.7 kg/m2 16713.4 5 g 99 % 99 % 86 /min 112 mm[Hg] 74 mm[Hg] YOGESH BENDER [facility] 4 08:53:15 Date Recorded Body height Body mass index (BMI) Body weight Body temperature Oxygen saturation Oxygen saturation in Arterial blood by Pulse oximetry Heart rate Systolic blood pressure Diastolic blood pressure Provider Name and Address Organization Details Last Updated DateTime 4 157.48 cm 22.6 kg/m2 92826.9 6 g 97.9 [degF] 97 % 97 % 110 /min 98 mm[Hg] 64 mm[Hg] YOGESH BENDER [facility] 4 10:12:40 Social History None recorded. Functional [...] Recorded Time MMR 09/16/1994 completed Not Available [facility] 03:50:44 MMR 03/20/1998 completed Not Available [facility] 03:50:45 DTaP, unspecified formulation 05/15/1994 completed Not Available [facility] 03/06/2023 03:50:45 DTaP, unspecified formulation 1993 completed Not Available [facility] 03/06/2023 03:50:45 DTaP, unspecified formulation 1993 completed Not Available [facility] 03/06/2023 03:50:45 DTaP, unspecified formulation 03/07/1994 completed Not Available [facility] 03/06/2023 03:50:45 DTaP, unspecified formulation 03/20/1998 completed Not Available [facility] 03/06/2023 03:50:45 meningococcal ACWY, unspecified formulation 09/15/2011 completed Not Available [facility] 03/06/2023 03:50:46 Td (adult), 5 Lf tetanus toxoid, preservative free, adsorbed 10/20/2016 completed Not Available [facility] 03/06/2023 03:50:46 Tdap 10/22/2018 completed Not Available [facility] 03:50:46 Tdap 11/24/2006 completed Not Available [facility] 03:50:46 Influenza, split virus, quadrivalent, PF 01/15/2021 completed Not Available [facility] 03/06/2023 03:50:47 Influenza, split virus, quadrivalent, PF 02/17/2022 completed Not Available [facility] 03/06/2023 03:50:47 Influenza, split virus, quadrivalent, PF 02/28/2019 completed Not Available [facility] 03/06/2023 03:50:48 Influenza, split virus, quadrivalent, PF 04/02/2020 completed Not Available [facility] 03/06/2023 03:50:48 Influenza, split virus, quadrivalent, preservative 03/02/2017 completed Not Available [facility] 03/06/2023 03:50:48 Influenza, split virus, quadrivalent, preservative 03/04/2018 completed Not Available [facility] 03/06/2023 03:50:48 Hib, unspecified formulation 1993 completed Not Available [facility] 03/06/2023 03:50:48 Hib, unspecified formulation 09/16/1994 completed Not Available [facility] 03/06/2023 03:50:49 Hib, unspecified formulation 1993 completed Not Available [facility] 03/06/2023 03:50:49 Hib, unspecified formulation 03/07/1994 completed Not Available [facility] 03/06/2023 03:50:49 COVID-19, mRNA, LNP-S, PF, 100 mcg/0.5mL dose or 50 mcg/0.25mL dose 08/21/2020 completed Not Available [facility] 03/06/20 03:50:49 COVID-19, mRNA, LNP-S, PF, 100 mcg/0.5mL dose or 50 mcg/0.25mL dose 09/18/2020 completed Not Available [facility] 03/06/20 03:50:49 COVID-19, mRNA, LNP-S, PF, 100 mcg/0.5mL dose or 50 mcg/0.25mL dose 04/10/2021 completed Not Available [facility] 03/06/20 03:50:50 varicella 11/24/2006 completed Not Available [facility] 03:50:50 varicella 01/21/1999 completed Not Available [facility] 03:50:50 SARS-COV-2 (COVID-19) vaccine, UNSPECIFIED 09/25/2021 completed Not Available [facility] 03/06/2023 03:50:50 Hep B, unspecified formulation 1993 completed Not Available [facility] 03/06/2023 03:50:51 Hep B, unspecified formulation 1993 completed Not Available [facility] 03/06/2023 03:50:51 Hep B, unspecified formulation 03/07/1994 completed Not Available [facility] 03/06/2023 03:50:52 Hep A, unspecified formulation 06/22/2000 completed Not Available [facility] 03/06/2023 03:50:52 Hep A, unspecified formulation 11/07/1997 completed Not Available [facility] 03/06/2023 03:50:52 influenza, unspecified formulation 01/18/2016 completed Not Available [facility] 03/06/2023 03:50:52 polio, unspecified formulation 05/15/1994 completed Not Available [facility] 03/06/2023 03:50:52 polio, unspecified formulation 1993 completed Not Available [facility] 03/06/2023 03:50:52 polio, unspecified formulation 09/15/1994 completed Not Available [facility] 03/06/2023 03:50:53 polio, unspecified formulation 03/07/1994 completed Not Available [facility] 03/06/2023 03:50:53 Influenza, split virus, quadrivalent, PF 01/23/2023 completed Not Available [facility] 05/08/2023 05:31:40 Past Encounters Encounter ID Performer Location Encounter Start Date Encounter Closed Date Diagnosis/Indication Diagnosis SNOMED-CT Code [id number] LORNA [address] [address] 04/24/2023 08:44:16 04/24/2023 10:09:30 Tetraplegia 36691487 Osteomyelitis 75409038 High enzym e level in serum 911262059 [id number] LORNA MICHELLE[address] [address] 07/24/2023 08:40:55 07/24/2023 09:38:18 Tetraplegia 66864871 Osteomyelitis 43138226 High enzym e level in serum 053257469 [id number] LORNA MICHELLE[address] [address] 11/10/2023 09:56:28 11/10/2023 12:18:07 Tetraplegia 66091190 Osteomyelitis 25376912 High enzym e level in serum 727638561 Vitamin D deficiency 347 76832 [id number] Health Concerns Section Related Observation LastModified by Organization Detai ls LastModified Time None Recorded Concern Status LastModified by Organization Details LastModified Time None Recorded Advance Directives Directive None Recorded Payers Encounter Date Sequence Insurance Name Policy Number Policy Green Covered Member ID Green Member ID Guarantor Name 04/24/2023 1 [facility] (MEDICAID) Tana Cavazos [id number] Tana Cavazos 07/24/2023 1 [employer] (MEDICAID) Tana Cavazos [id number] Tana Cavazos 11/10/2023 1 [facility] (MEDICAID) Tana Cavazos [id number] Tana Cavazos Notes Date Note Type Note [...] -- Has been working with surgeon at [facility] and ID at [facility]. -- Has elevated [...] increasing. She had abdominal US done at [facility] 03/28/23 and this [...] TID did help with this. LORNA MARTINEZ, STUDENT SERVICES REPRESENTATIVE [address], [place], [address], [place] [facility]. 04/24/2023 10:55:28 07/24/2023 text/html HPI Notes: [...] -- Has been working with surgeon at [facility] and ID at [facility]. -- Has elevated [...] increasing. She had abdominal US done at [facility] 03/28/23 and this [...] and see how she does. LORNA MARTINEZ, STUDENT SERVICES REPRESENTATIVE [address], [place], [address], [facility]. 07/24/2023 09:32:54 11/10/2023 text/html HPI Notes: [...] -- Has been working with surgeon at [facility] and ID at [facility]. -- Has elevated inflammatory markers that are gradually rising, specifically CRP and ESR -- Normal CK -- LFTs are elevated; initially alk phos was primarily elevated, but over the last few months her AST and ALT have been increasing. She had abdominal US done at [facility] 03/28/23 and this [...] has full guardianship of Kalyan. LORNA MARTINEZ, STUDENT SERVICES REPRESENTATIVE [address], [place], [address], [facility]. 11/10/2023 12:42:59 OBGyn Episode No OBEpisode recorded.
--- OUTSIDE RECORDS SUMMARY | 2023-12-07 15:19 | XMS_ITS | Clinical Summary ---
Author Organization [facility] Address [facility] [place] [address] Care Team Providers Care Chief Passenger Ship Steward/Stewardess Name Role Phone Lorna Bal APRN Primary Care Provider [phone] Allergies Active Allergy Reactions Criticality Noted Date Comments Cyclobenzaprine 01/28/2023 Other Reaction(s): Not available Doxycycline Other (See Comments) 08/05/2023 Cough, rash Fluoxetine Other (See Comments) High 02/28/2014 HIVES, HEART RACES Penicillins 06/24/2022 Transparent Dressings Itching,Dermatitis Medium 2014 Please use [id number] Medications Medication Sig Dispensed Refills Start Date [...] - See Instructions). FLUSH PROTOCOL WITH MEDICATIONS ([facility]): Before med infusion: flush with [...] - See Instructions). 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 12/03/2023 Notes Only Infectious Disease at [place] [phone] Mesha Mckeon RN 12/03/2023 Orders Only Infectious Disease at [place] [phone] Hollie Ambriz MD Spinal abscess; Bacteremia; penitentiary 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 12/03/2023 Travel 12/02/2023 Orders Only Infectious Disease at [place] [phone] Hollie Ambriz MD Spinal abscess; Bacteremia 11/25/2023 2:00 PM EDT TH Visit (TeleHealth) [place] [address] Lilli Joy, ANTHROPOLOGY PROFESSOR 11/09/2023 Telephone Infectious Disease at [place] [phone] Yas Tracy RN 10/28/2023 8:05 PM EDT - 11/03/2023 5:25 PM EDT Hospital Encounter Medical Specialites Unit Level 1 [place] [address] Hernandez, MD Damaris Arias John, MD Etiwy, Muhammad, MD Ivan, Adrian M, MD Lurie, Jonathan D, MD Abscess; Spinal abscess Discharge Disposition: Home with [facility] 10/28/2023 Travel 10/28/2023 Telephone Infectious Disease at [place] [address] Neva Thorpe, RN 10/28/2023 Telephone Infectious Disease at [place] [phone] Neva Thorpe, RN 10/28/2023 Telephone Infectious Disease at [place] [phone] Neva Thorpe, RN 10/28/2023 Telephone Infectious Disease at [place] [phone] Neva Thorpe, RN 10/27/2023 Telephone [place] [address] Hollie Ambriz MD 10/27/2023 Telephone Infectious Disease at [place] [phone] Halima García 09/29/2023 10:30 AM EDT Office [place] [address] Chuckie Mayfield MD Chronic pain of right thumb; 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 09/29/2023 10:00 AM EDT Office [place] [address] Gaby Lake OT 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; Spasticity 09/29/2023 Travel 09/28/2023 Orders [place] [phone] Hollie Ambriz MD penitentiary 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; Spinal abscess; Acute hematogenous osteomyelitis, unspecified site 09/24/2023 10:00 AM EDT Office [place] [phone] George Tipton MD 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 No 10/29/2023 IPV Inpatient Questions [...] at [facility] [place] [address] Hollie Ambriz MD [facility] [place] [address] Health Maintenance Due Date Last Done Comments [...] the entire procedure. ?? Andrade Melvin MD [facility] IR ORDERABLES * Scan Doc: Lab (11/25/2023 12:00 AM EDT) Only the most recent of9 resultswithin the time period is included. Narrative 11/25/2023 12:00 AM EDT Ordered by an unspecified provider. Scanning Provider MEDIA MGR SCAN EXT O RDR/RSLT * Place PICC Line: Contact Vascular Access Page [phone] Extremity to exclude: No restrictions; Is PICC [...] to the planned procedure. Hand Hygiene: The core inserter did perform hand hygiene prior to line insertion. Catheter type: PICC Lot number: [id number] Procedure Technique: Skin was prepped with chlorhexidine. [...] PICC placement. Margie Bucio RN 11/03/2023 Isaiah Samayao MD PROCEDURE/MINOR SURG ICAL ORDERABLES * XR PICC Placement Over 5 Years with Imaging Guidance (IV Team) (11/03/2023 11:19 AM EDT) WORKSTATION ID [id number] RAD Anatomical Region Laterality Modality N/A Radio [...] have questions please contact the health care transition coordinator that requested your imaging first. ? Electronically signed by: Deb Avery MD, [facility] ??([phone]), at 11/03/2023 11:55 AM Narrative 11/03/2023 11:55 [...] who have questions please contactthe health care transition coordinator that requested your imaging first. Isaiah Samayoa [...] the time period is included. Pathologist [facility] C-Reactive Protein 62.8(H) <=4.9 mg/L [facility] Blood 11/02/2023 5:26 AM EDT 11/02/2023 5:44 AM EDT Narrative Resulting Agency Comment Spec In Lab Isaiah Samayoa MD CHEMISTRY ORDERABLES [facility] [place] [address] * (ABNORMAL) Hemogram (11/02/2023 5:26 AM EDT) Only the most recent of5 resultswithin the time period is included. Pathologist [facility] White Blood Cell 7.5 4.0 - 9.5 x10(3)/mc L [facility] Red Blood Cell 3.89(L) 4.00 - 5.21 x10(6)/[facility] LABORATORY Hemoglobin 11.1(L) 11.7 - 15.5 [...] HOSPITAL LABORATORY Platelet 477(H) 145 - 357 x10(3)/[facility] LABORATORY RDW Standard Deviation 45.1 37.0 - 46.0 [facility] LABORATORY RDW coefficient of variation 14.3(H) 11.5 - 14.1 % [facility] Mean Platelet Volume 9.1 7.6 - 12.9 [facility] LABORATORY NRBC% auto 0.0 % [facility] NRBC Absolute 0.000 0.000 - 0.000 x10(3)/[facility]ORATORY Blood 11/02/2023 5:26 AM EDT 11/02/2023 5:43 AM EDT Narrative Resulting Agency Comment Spec In Lab Isaiah Samayoa MD HEMATOLOGY ORDERABLE S [facility] [place] [address] * Differential, Automated (11/02/2023 5:26 AM EDT) Only the most recent of5 resultswithin the time period is included. Neutrophil % 69.0 % [facility] Neutrophil Absolute 5.16 1.70 - 6.10 x10(3)/[facility] LABORATORY Lymph % 21.7 % [facility] Lymphocytes Abs 1.6 0.9 - 3.2 x10(3)/[facility]OR[facility]ORY Monocyte % 6.8 % [facility] Monocyte Abs 0.5 0.3 - 0.9 x10(3)/[facility]OR[facility] Eos % 1.6 % [facility] Eosinophils Abs 0.1 0.0 - 0.4 x10(3)/[facility]OR[facility] Basophil % 0.5 % [facility] Baso Absolute 0.0 0.0 - 0.1 x10(3)/[facility]OR[facility] Immature Gran % 0.40 % [facility] Comment: Immature granulocytes(IG's)percentage and absolute count will include metamyelocytes, myelocytes, and promyelocytes. Blood smears from CBCs yielding IG's will be scanned manually for concordance. If this scan disagrees with the automated IG or if promyelocytes are noted, a manual differential will be performed. Immature Gran Absolute 0.03 0.00 - 0.04 x10(3)/[facility] Blood 11/02/2023 5:26 AM EDT 11/02/2023 5:43 AM EDT Narrative Resulting Agency Comment Spec In Lab Isaiah Samayoa MD HEMATOLOGY ORDERABLE S Performing Organization Address City/[facility]/ZIP [place] [address] * CK (11/02/2023 5:26 AM EDT) Only the most recent of2 resultswithin the time period is included. Creatine Kinase 14 0 - 160 unit/L [facility] Blood 11/02/2023 5:26 AM EDT 11/02/2023 5:44 AM EDT Narrative Resulting Agency Comment Spec In Lab Isaiah Samayoa MD CHEMISTRY ORDERABLES Performing Organization Address City/[facility]/ZIP Co de Phone Number [facility] [place] [address] * (ABNORMAL) Comprehensive metabolic panel (non-fasting) (11/02/2023 [...] MD CHEMISTRY ORDERABLES [facility] [place] [address] * XR Abdomen 1 view (Generic) (11/01/2023 10:14 PM EDT) WORKSTATION ID [id number] RAD Anatomical Region Laterality Modality Abdomen N/A [...] have questions please contact the health care transition coordinator that requested your imaging first. ? Electronically signed by: Marisela Estrella MD, [facility] ([phone]), at 11/02/2023 8:47 AM Narrative 11/02/2023 8:47 [...] who have questions please contactthe health care transition coordinator that requested your imaging first. Electronically signed by: Marisela Estrella MD, [facility]([phone]), at 11/02/2023 8:47 AM Mindy Da Silva APRN IMG DX ORDERABLES * MRSA PCR Screen ([facility]/CGP/APD/NLH) (10/31/2023 6:10 PM EDT) [facility] MRSA PCR Negative Negative [facility] MRSA (Interp) Methicillin-resist ant Staphylococcus aureus (MRSA) is NOT DETECTED The MRSA target DNA sequences (mec and SCC) were not detected within the acceptable ranges using the Xpert MRSA NxG on the GeneXpert Dx System ([employer]). This suggests the absence of MRSA in the patient specimen submitted for testing. This test is cleared by the U.S. Food and Drug Administration for clinical use and its performance characteristics have been verified by the [facility] at [facility]. This result does not rule out [...] MD MOLECULAR ORDERABLES [facility] [place] [address] * (ABNORMAL) Sedimentation rate (10/31/2023 4:47 AM [...] MD HEMATOLOGY ORDERABLE S Performing Organization Address City/[facility]/ZIP Co de Phone Number [facility] [place] [address] * Magnesium (10/31/2023 4:47 AM EDT) Only the most recent of4 resultswithin the time period is included. Magnesium 0.86 0.69 - 1.07 mmol/L [facility] Blood 10/31/2023 4:47 AM EDT 10/31/2023 4:55 AM EDT Narrative Resulting Agency Comment Spec In Lab Sharron Witners MD CHEMISTRY ORDERABLES [facility] [place] [address] * (ABNORMAL) Basic Metabolic Panel (non-fasting) (10/31/2023 [...] Winters MD CHEMISTRY ORDERABLES Performing Organization Address City/State/[facility] Co de Phone Number [facility] [place] [address] * IR All Drainage Procedures (10/30/2023 3:23 [...] performed this procedure. ? Sharron Winters MD [facility] IR ORDERABLES * Anaerobic Culture (10/30/2023 3:02 PM EDT) Anaerobic Culture No anaerobic organisms isolated [facility] Fluid 10/30/2023 3:02 PM EDT 10/30/2023 3:47 PM EDT Comment:Infected seroma/absc ess lower mid posterior presacral region. Fluid culture. Narrative Resulting Agency Comment Spec In Lab Andrade Melvin MD MICROBIOLOGY - GENER AL ORDERABLES [facility] [place] [address] * Body Fluid Culture, Aerobic (10/30/2023 3:02 [...] GENER AL ORDERABLES [facility] [place] [id number] * POCT urine (10/29/2023 10:26 AM EDT) POC Urine HCG Negative POC Control Internal Controls Acceptable 10/29/2023 10:2 6 AM EDT Sharron Winters MD POINT OF CARE TEST O RDERABLES * Lactate, whole blood, send to lab ([facility]) (10/29/2023 8:37 AM EDT) Pathologist [facility] Lactate WB 1.8 0.5 - 2.2 mmol/L [facility] Blood 10/29/2023 8:37 AM EDT 10/29/2023 8:47 AM EDT Narrative Resulting Agency Comment Spec In Lab Brennan Maldonado MD CHEMISTRY ORDERABLE S [facility] [place] [address] * Phosphorus (10/29/2023 8:37 AM EDT) Only the most recent of2 resultswithin the time period is included. Phosphorus 3.6 2.5 - 4.5 mg/dL [facility] Blood 10/29/2023 8:37 AM EDT 10/29/2023 8:47 AM EDT Narrative Resulting Agency Comment Spec In Lab Brennan Maldonado MD CHEMISTRY ORDERABLE S Performing Organization Address [facility] Co de Phone Number [facility] [place] [address] * (ABNORMAL) Urinalysis Microscopic Exam (10/29/2023 2:33 AM EDT) RBC, Urine >100(H) 0 - 4 /HPF [facility] WBC, Urine 4 0 - 5 /HPF [facility] Squamous Epithelial Cells Raw Data, Urine 4 <=4 /HPF [facility] Hyaline Casts, Urine <1 0 - 2 /LPF [facility] Comment: Interpret results with caution, microscopic results are from suboptimal specimen volume Straight Catheter Urine 10/29/2023 2:33 AM EDT 10/29/2023 2:43 AM EDT Narrative Resulting Agency Comment Spec In Lab Sharron Winters MD URINE ORDERABLES Performing Organization Address [facility] Co de Phone Number [facility] [place] [address] * (ABNORMAL) Urinalysis with reflex Culture (10/29/2023 [...] HOSPITAL LABORATORY Leukocytes, Urine Dipstick Negative Negative [facility] Appearance, Urine Dipstick Clear Clear [facility] Specific [place] Urine Automated >=1.030(A) 1.005 - 1.030 [facility] Color, Urine Dipstick Yellow Yellow [facility] Reflex to Culture No [facility] Straight Catheter Urine 10/29/2023 2:33 AM EDT 10/29/2023 2:43 AM EDT Narrative Resulting Agency Comment Spec In Lab Sharron Winters MD URINE ORDERABLES Performing Organization Address City/State/[facility] Co de Phone Number [facility] [place] [address] * CT Lumbar Spine w Contrast (10/28/2023 9:50 PM EDT) [employer] WORKSTATION ID [id number] DH RAD Anatomical Region Laterality Modality L-spine [...] have questions please contact the health care transition coordinator that requested your imaging first. ? Electronically signed by: Enid Vargas MD, [facility] ([phone]), at 10/28/2023 10:17 PM Narrative 10/28/2023 10:17 [...] who have questions please contactthe health care transition coordinator that requested your imaging first. Electronically signed by: Enid Vargas MD, [facility]([phone]), at 10/28/2023 10:17 PM Siomara Hernandez MD IMG CT ORDERABLES from Last 3 Months Advance Directives Documents on File Type Date Recorded Patient Facilities Maintenance Worker Expl anation Personal Facilities Maintenance Worker 04/29/2023 4:18 PM has new guardian Personal Facilities Maintenance Worker 04/29/2023 2:04 PM has new guardian Guardianship [...] Status decision made by: Patient Care Teams Chief Passenger Ship Steward/Stewardess Relationship Specialty Start Date End Date Lorna Bal APRN [address] [place] [address] PCP - General Family Medicine 05/27/18
--- OUTSIDE RECORDS SUMMARY | 2023-12-07 15:19 | XMS_ITS | Encounter Summary ---
Author Organization [place] [address] Care Team Providers Care Record Clerk Salesperson Name Role Phone Lorna Bal APRN Primary Care Provider [phone] [phone] Reason for Referral * Diagnostic Test (Routine) - Authorized Specialty Diagnoses / Procedures Referred By Contac t Referred To Contact Radiology Diagnoses Abscess Procedures IR Drain Check/Change/Remove Mich Martino MD [facility] [address] [place] [address] [place] [address] Referral ID Status Reason Start Date Expiration Date Visits Requested Visits Authorized [id number] Authorized Specialty Service Requested 12/03/2023 06/04/2025 1 1 * Diagnostic Test (Routine) - Closed Specialty Diagnoses / Procedures Referred By Contac t Referred To Contact Radiology Diagnoses Abscess Procedures IR Drain Check/Change/Remove Andrade Melvin MD [facility] [place] [address] [place] [address] Referral ID Status Reason Start Date Expiration Date V isits Requested Visits Authorized [id number] Closed Specialty Service Requested 10/30/2023 05/01/2025 1 1 Reason for Visit * Diagnostic Test (Routine) - Closed Specialty Diagnoses / Procedures Referred By Contac t Referred To Contact Radiology Diagnoses Abscess Procedures IR Drain Check/Change/Remove Andrade Melvin MD [facility] [place] [address] [place] [address] Referral ID Status Reason Start Date Expiration Date V isits Requested Visits Authorized [id number] Closed Specialty Service Requested 10/30/2023 05/01/2025 1 1 Encounter Details Date Type Department Care Team (Latest Contact Info) Description 12/03/2023 1:20 PM EDT - 12/03/2023 11:59 PM EDT Hospital [place] [address] Andrade Melvin MD [facility] [address] [place] [address] Abscess Discharge Disposition: Home Social History Tobacco Use Types Packs/Day Years Used Date Smoking Tobacco: Never Passive Smoke Exposure: Never Smokeless Tobacco: Never Comments:NO SMOKERS IN THE H OME Alcohol Use Standard Drinks/Week Comments No 0 (1 standard drink = 0.6 oz pur e alcohol) [facility] Utilities Answer Date Recorded In the [...] time in the past 12 m [facility], were you homeless or living in a group home (including now)? No 10/29/2023 DH IPV [...] is during regular office hours, please call [phone]. If it is after regular office hours, or on weekends or holidays, please call [phone] and ask to speak to the Adoption Services Manager loans consultant for Interventional Radiology. Revised 02/10/19 Drainage Record NAME: Date of Surgery: Date: Time: If more than one drain, which one: Drainage Amount (per drain) Total Amount (per drain; in 24 hours) documented in this encounter Medications at Time of Discharge Medication Sig Dispensed Refills Start Date End Date sulfamethoxazole-trim ethoprim DS (Bactrim DS) 800-160 mg tablet Take 1 tablet by mouth 2 times daily for 180 days. 60 tablet 5 12/03/2023 05/31/2024 baclofen 15 mg Tablet Take 15 mg [...] tablet Take 2 tablets by mouth nightly. documented as of this encounter Progress Notes * Elinor Burton RN - 12/03/2023 3:07 PM EDT [facility] Name: Tana Cavazos Date of : 1995 AGE: 28 y.o. Address: [address] [place] [address] (home) [phone] (work) Mobile: Telephone Information: Referring Provider: Andrade Melvin REASON FOR VISIT: Order Questions Answers Where will study be performed? [facility] Radiology [120] To be scheduled Next [...] [Transparent Dressings] Itching and Dermatitis Please use [id number] Cyclobenzaprine Other Reaction(s): Not available Doxycycline Other [...] Yes Allergies reviewed: Yes Source Note - [place], DEMI Torres - 11/23/2023 12:56 PM EDT Images from the original note were not included. Interventional Radiology Focused Pre-procedure H&P: PCP: Lorna Bal APRN Referring Provider: Andrade Melvin Planned procedure: Paraspinal drain check/exchange/removal Procedure indication: Chronic perihardware fluid collection, first routine drain check IR workflow: Procedure request received through Interventional Radiology eDH order queue. Order Questions Answers Where will study be performed? [facility] Radiology [120] To be scheduled Next [...] - See Instructions). FLUSH PROTOCOL WITH MEDICATIONS ([facility]): Before med infusion: flush with NS 10 [...] - See Instructions). FLUSH PROTOCOL WITH MEDICATIONS ([facility]): Before med infusion: flush with NS 10 [...] All Drainage Procedures 06/25/2022 Mich Martino MD [facility] INTERVENTIONL RAD IR ALL DRAINAGE PROCEDURES 07/04/2022 IR All Drainage Procedures 07/04/2022 Mich Martino MD [facility] INTERVENTIONL RAD IR ALL DRAINAGE PROCEDURES 07/24/2022 IR All Drainage Procedures 07/24/2022 Anurag Kumar MD [facility] INTERVENTIONL RAD IR ALL DRAINAGE PROCEDURES 09/26/2022 IR All Drainage Procedures 09/26/2022 Jamaal Jenkins, DO [facility] INTERVENTIONL RAD IR ALL DRAINAGE PROCEDURES 10/30/2023 IR All Drainage Procedures 10/30/2023 Andrade Melvin MD [facility] INTERVENTIONL RAD IR DRAIN CHECK/CHANGE/REMOVE 07/01/2022 IR Drain Check/Change/Remove 07/01/2022 Jamaal Jenkins, DO [facility] INTERVENTIONL RAD IR DRAIN CHECK/CHANGE/REMOVE 08/11/2022 IR Drain Check/Change/Remove 08/11/2022 Piter Self MD [facility] INTERVENTIONL RAD IR DRAIN CHECK/CHANGE/REMOVE 08/25/2022 IR Drain Check/Change/Remove 08/25/2022 Jamaal Jenkins, [facility] INTERVENTIONL RAD IR DRAIN CHECK/CHANGE/REMOVE 09/10/2022 IR Drain Check/Change/Remove 09/10/2022 Mich Martino MD [facility] INTERVENTIONL RAD PRO APPLY OF HIP CASTS, TWO LEGS 08/15/2010 CAST APPLICATION, HIP SPICA, BOTH LEGS performed by BARRERA OLIVER at [facility] MAIN OR PRO COLONOSCOPY, BIOPSY N/A 08/05/2023 COLONOSCOPY FLEXIBLE, WITH BX (WRVU 3.56) performed by Jamar Gastelum MD at [facility] ENDOSCOPY PRO I&D, POST SPINE, LUMB/SACR/LUMBOSAC N/A 05/20/2014 @I & D, OPEN, DEEP ABSCESS, LUMBAR, SACRAL, LUMBOSACRAL performed by Freddy Isbell MD at [facility] MAIN OR PRO I&D, POST SPINE, LUMB/SACR/LUMBOSAC N/A 05/26/2014 @I & D, OPEN, DEEP ABSCESS, LUMBAR, SACRAL, LUMBOSACRAL performed by Freddy Isbell MD at [facility] MAIN OR PRO IMPACT TOOTH REMOV COMP BONY N/A 06/14/2018 SURGICAL EXTRACTIONS, REMOVAL OF IMPACTED TOOTH, COMPLETELY BONY (WRVU 1.93) performed by Keith Cotton MD at [facility] OSC PRO OSTEOTOMY FEMUR SHAFT/SUPRACONDY 08/15/2010 ??OSTEOTOMY, FEMUR SHAFT OR SUPRACONDYLAR W/O FIXATION performed by BARRERA OLIVER at [facility] MAIN OR PRO RECONSTRUC HIP SOCKET, RESEC FEM HEAD 08/15/2010 ??ACETABULOPLASTY (GIRDLESTONE), RESECTION FEMORAL HEAD, BILATERAL performed by BARRERA OLIVER [facility] MAIN OR PRO REMOVAL DEEP IMPLANT 08/15/2010 REMOVAL IMPLANT, DEEP, BRUNO performed by BARRERA OLIVER at [facility] MAIN OR PRO REMOVAL ERUPTED TOOTH WITH ELEVATION OF MUCOPERIOSTEAL FLAP N/A 06/14/2018 SURGICAL EXTRACTIONS REQUIRING ELEVATION OF MUCOPERIOSTEAL FLAP AND REMOVAL OF BONE OR SECTION OF TOOTH (WRVU 1.09) performed by Keith Cotton MD at [facility] OSC PRO REMOVE INFUSN DEVICE/PUMP N/A 05/11/2014 REMOVAL OF SPINE INFUSION PUMP performed by Jamaal Samuel MD at [facility] MAIN OR PRO REMOVE SPINAL CANAL CATHETER N/A 05/11/2014 REMOVAL OF INTRATHECAL OR EPIDURAL CATHETER performed by Jamaal Samuel MD at [facility] MAIN OR PRO REPR, DURAL/CSF LEAK, NOT REQ LAMINECTOMY N/A 05/20/2014 @REPAIR DURAL\CSF LEAK,NOT REQUIRING LAMINECTOMY performed by Freddy Isbell MD at [facility] MAIN OR Social History and Habits: [...] Questions Answers Where will study be performed? [facility] Radiology [120] To be scheduled Next [...] All Drainage Procedures 06/25/2022 Mich Martino MD [facility] INTERVENTIONL RAD IR ALL DRAINAGE PROCEDURES 07/04/2022 IR All Drainage Procedures 07/04/2022 Mich Martino MD [facility] INTERVENTIONL RAD IR ALL DRAINAGE PROCEDURES 07/24/2022 IR All Drainage Procedures 07/24/2022 Anurag Kumar MD [facility] INTERVENTIONL RAD IR ALL DRAINAGE PROCEDURES 09/26/2022 IR All Drainage Procedures 09/26/2022 Jamaal Jenkins DO [facility] INTERVENTIONL RAD IR ALL DRAINAGE PROCEDURES 10/30/2023 IR All Drainage Procedures 10/30/2023 Andrade Melvin MD [facility] INTERVENTION RAD IR DRAIN CHECK/CHANGE/REMOVE 07/01/2022 IR Drain Check/Change/Remove 07/01/2022 Jamaal Jenkins, DO [facility] INTERVENTIONL RAD IR DRAIN CHECK/CHANGE/REMOVE 08/11/2022 IR Drain Check/Change/Remove 08/11/2022 Piter Self MD [facility] INTERVENTIONL RAD IR DRAIN CHECK/CHANGE/REMOVE 08/25/2022 IR Drain Check/Change/Remove 08/25/2022 Jamaal Jenkins, DO [facility] INTERVENTIONL RAD IR DRAIN CHECK/CHANGE/REMOVE 09/10/2022 IR Drain Check/Change/Remove 09/10/2022 Mich Martino MD [facility] INTERVENTIONL RAD PRO APPLY OF HIP CASTS, TWO LEGS 08/15/2010 CAST APPLICATION, HIP SPICA, BOTH LEGS performed by BARRERA OLIVER at [facility] MAIN OR PRO COLONOSCOPY, BIOPSY N/A 08/05/2023 COLONOSCOPY FLEXIBLE, WITH BX (WRVU 3.56) performed by Jamar Gastelum MD at [facility] ENDOSCOPY PRO I&D, POST SPINE, LUMB/SACR/LUMBOSAC N/A 05/20/2014 @I & D, OPEN, DEEP ABSCESS, LUMBAR, SACRAL, LUMBOSACRAL performed by Freddy Isbell MD at [facility] MAIN OR PRO I&D, POST SPINE, LUMB/SACR/LUMBOSAC N/A 05/26/2014 @I & D, OPEN, DEEP ABSCESS, LUMBAR, SACRAL, LUMBOSACRAL performed by Freddy Isbell MD at [facility] MAIN OR PRO IMPACT TOOTH REMOV COMP BONY N/A 06/14/2018 SURGICAL EXTRACTIONS, REMOVAL OF IMPACTED TOOTH, COMPLETELY BONY (WRVU 1.93) performed by Keith Cotton MD at [facility] OSC PRO OSTEOTOMY FEMUR SHAFT/SUPRACONDY 08/15/2010 ??OSTEOTOMY, FEMUR SHAFT OR SUPRACONDYLAR W/O FIXATION performed by BARRERA OLIVER at [facility] MAIN OR PRO RECONSTRUC HIP SOCKET, RESEC FEM HEAD 08/15/2010 ??ACETABULOPLASTY (GIRDLESTONE), RESECTION FEMORAL HEAD, BILATERAL performed by BARRERA OLIVER [facility] MAIN OR PRO REMOVAL DEEP IMPLANT 08/15/2010 REMOVAL IMPLANT, DEEP, BRUNO performed by BARRERA OLIVER at [facility] MAIN OR PRO REMOVAL ERUPTED TOOTH WITH ELEVATION OF MUCOPERIOSTEAL FLAP N/A 06/14/2018 SURGICAL EXTRACTIONS REQUIRING ELEVATION OF MUCOPERIOSTEAL FLAP AND REMOVAL OF BONE OR SECTION OF TOOTH (WRVU 1.09) performed by Keith Cotton MD at [facility] OSC PRO REMOVE INFUSN DEVICE/PUMP N/A 05/11/2014 REMOVAL OF SPINE INFUSION PUMP performed by Jamaal Samuel MD at [facility] MAIN OR PRO REMOVE SPINAL CANAL CATHETER N/A 05/11/2014 REMOVAL OF INTRATHECAL OR EPIDURAL CATHETER performed by Jamaal Samuel MD at [facility] MAIN OR PRO REPR, DURAL/CSF LEAK, NOT REQ LAMINECTOMY N/A 05/20/2014 @REPAIR DURAL\CSF LEAK,NOT REQUIRING LAMINECTOMY performed by Freddy Isbell MD at [facility] MAIN OR Social History and Habits: [...] PM EST Office [place] [address] Hollie Ambriz MD [facility] [place] [address] Scheduled Orders Name Type Priority Associated Diagnoses [...] the entire procedure. ?? Andrade Melvin MD [facility] IR ORDERABLES documented in this encounter Visit [...] mLs documented in this encounter Care Teams Record Clerk Salesperson Relationship Specialty Start Date End Date Lorna Bal APRN [address] [place] [address] PCP - General Family Medicine 05/27/18 documented as of this encounter
--- OUTSIDE RECORDS SUMMARY | 2023-12-07 15:19 | XMS_ITS | Encounter Summary ---
Author Organization [facility] [place] [address] Care Team Providers Care Flour Distributor Name Role Phone Lorna Bal APRN Primary Care Provider +1 -[phone] Encounter Details Date Type Department Care Team (Late st Contact Info) Description 12/03/2023 Notes [place] [id number] Mesha Mckeon, RN Social History Tobacco Use Types Packs/Day Years Used Date Smoking Tobacco: Never Passive Smoke Exposure: Never Smokeless Tobacco: Never Comments:NO SMOKERS IN THE H OME Alcohol Use Standard Drinks/Week Comments No 0 (1 standard drink = 0.6 oz pur e alcohol) [facility] Utilities Answer Date Recorded In the past 12 months has e electric, gas, oil, or water [employer] threatened to shut off services in your [...] No 10/29/2023 Housing Stability Vital Sign Answer Eirc e Recorded In the last 12 months, was t here a time when you were not able to pay the mortgage or rent on time? No 10/29/2023 In the past 12 months, how m any times have you moved where you were living? 0 10/29/2023 At any time in the past 12 m [facility], were you homeless or living [...] PICC Order Faxed d/c PICC order to [facility] on 12/02 at 1645 Confirmed fax on 12/02 at 1650 documented in this encounter Plan of Treatment Upcoming Encounters Date Type Department Care Team (Late st Contact Info) Description 06/02/2024 12:30 PM EST Office [place] [id number] Hollie Ambriz MD [facility] [place] [address] documented as of this encounter Visit Diagnoses Not on filedocumented in this encounter Care Teams Flour Distributor Relationship Specialty Start Date End Date Lorna Bal APRN [address] [place] [address] PCP - General Family Medicine 05/27/18 documented as of this encounter
--- OUTSIDE RECORDS SUMMARY | 2023-12-07 15:20 | XMS_ITS | Encounter Summary ---
[place] [address] Care Team Providers Care Weeder Thinner Name Role Phone Lorna Bal APRN Primary Care Provider +1 -[phone] Reason for Referral * Occupational Therapy (Routine) - Closed Specialty Diagnoses / Procedures Referred By Contmonica t Referred To Contact Occupational Therapy Diagnoses Chronic pain of right thumb Lucho Foster MD [facility] [place] [address] [facility] [place] [address] Referral ID Status Reason Start Date Expiration Date V isits Requested Visits Authorized [id number] Closed Consult Only 09/29/2023 09/28/2024 30 30 * Physical Therapy (Routine) - Authorized Specialty Diagnoses / Procedures Referred By Contac t Referred To Contact Physical Therapy Diagnoses Chronic pain of right thumb Lucho Foster MD [facility] [place] [address] Referral ID Status Reason Start Date Expiration Date Visits Requested Visits Authorized [id number] Authorized Evaluate and Treat 09/29/2023 03/27/2024 12 12 Reason for Visit * Reason Comments Establish Care CONTRACTURE OF R VIKAS MB NO KNOWN INJURY Hx OF RELEASE DOS: ([facility]) [place]ST[place]A * Consultation (Routine) - Authorized Specialty Diagnoses / Procedures Referred By Contac t Referred To Contact Orthopaedics Diagnoses Contracture of joint of hand, 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 Lorna Bal APRN [address] [place] [address] [facility] [address] [place] [phone] Referral ID Status Reason Start Date Expiration Date Visits Requested Visits Authorized [id number] Authorized Consult, Test & Treat PCP Updated and/or Approved 08/03/2023 08/02/2024 6 6 Encounter Details Date Type Department Care Team (Latest Contact Info) Description 09/29/2023 10:30 AM EDT Office Visit [place] [address] Chuckie Mayfield MD [facility] [place] [address] Chronic pain of right thumb; [...] NO KNOWN INJURY Hx OF RELEASE DOS: ([facility]) [place]ST[place]A Date of injury: N/A [...] [Transparent Dressings] Itching and Dermatitis Please use [id number] Cyclobenzaprine Other Reaction(s): Not available Doxycycline Other (See Comments) Cough, rash Penicillins Social history: Social History Tobacco Use Smoking status: Never Passive exposure: Never Smokeless tobacco: Never Tobacco comments: NO SMOKERS IN THE HOME Substance Use Topics Alcohol use: No Occupation: disabled Questionnaire Responses: 03/18/2019 [facility] Surgical Postop Visit PROMIS-10 General Health Very [...] PM EST Office Visit [place] [address] Hollie Ambriz MD [facility] [place] [address] Scheduled Referrals Name Type Priority Associated Diagnoses [...] unspecified documented in this encounter Care Teams Weeder Thinner Relationship Specialty Start Date End Date Lorna Bal, SURGICAL SCHEDULER [address] [place] [address] PCP - General Family Medicine 05/27/18 documented as of this encounter
--- OUTSIDE RECORDS SUMMARY | 2023-12-07 15:20 | XMS_ITS | Encounter Summary ---
Author Organization [facility] Address [facility] [place] [address] Care Team Providers Care Completion Engineer Name Role Phone Lorna Bal APRN Primary Care Provider +1 [phone] Encounter Details Date Type Department Care Team (Late st Contact Info) Description 08/05/2023 10:15 AM EDT - 08/05/2023 11:00 AM EDT Surgery [place] [address] Jamar Gastelum MD [facility] [place] [place] [address] COLONOSCOPY FLEXIBLE, WITH BX (WRVU 3.56) Social History Tobacco Use Types Packs/Day Years Used Date Smoking Tobacco: Never Smokeless Tobacco: Never Comments:NO SMOKERS IN THE H OME Alcohol Use Standard Drinks/Week Comments No 0 (1 standard drink = 0.6 oz pur e alcohol) [facility] Inpatient Questions Answer Date Recorded [...] occurs, please contact your Doctor. Please call [phone] before 8pm Mon-Fri with problems, questions or concerns. If you call after 8pm or on weekends, call the Hospital at [phone] and ask to speak to the [employer] customer response representative and the shot peening operator will contact that person for you. When should you call for help? Call 322 anytime you think you may need emergency [...] any problems. Where can you learn more? [facility] View your After Visit Summary and more online at [email or web address] If you would like to provide feedback about your hospital experience, please call the Office of Patient and Family Relations at . If you have received this After Visit Summary in error, please immediately return it in person to the department, or notify the [facility] Privacy Office by calling toll free at between the hours of 8AM and 5PM to arrange for our retrieval of the documents at no cost to you. Content Version: 12.2 ?? [id number] [employer]. Care instructions adapted under license by [employer]. If you have questions about a medical condition or this instruction, always ask your healthcare professional. [employer] disclaims any warranty or liability for your [...] Gastelum MD - 08/05/2023 10:35 AM EDT [facility] Operative Note Patient Name: Tana Cavazos : [id number] MR#: [id number] Case Date: 08/05/2023 Surgeon: Surgeon(s) and Role: [...] PM EST Office [place] [address] Hollie Ambriz MD [facility] [place] [address] documented as of this encounter Procedures Procedure Name Priority Date/Time Associated Diagnosis Comments SPECIMEN TO PATHOLOGY Routine 08/05/2023 11:01 AM EDT SURGICAL PATHOLOGY REPORT Routine 08/05/2023 11:00 AM EDT Colonoscopy, Biopsy ([id number]) 08/05/2023 10:27 AM EDT Constipation, unspecified constipation type COLONOSCOPY Routine 08/05/2023 9:59 AM EDT documented in this encounter Results * Specimen to Pathology (08/05/2023 11:01 AM EDT) AP Specimen 08/05/2023 11:0 1 AM EDT 08/05/2023 11:01 AM EDT Narrative [facility] - 08/05/2023 11:01 AM EDT Specimen requisition ordered. ??Separate Pathology report to follow Jamar Hair MD PATHOLOGY/CYTOLO GY ORDERABLES [facility] [place] [address] * Surgical Pathology Report (08/05/2023 11:00 AM EDT) Final Diagnosis [id number] ? Location: 4T; EA11; A The signing pathologist has (i) examined the relevant preparation(s) for the specimen(s) and (ii) rendered or confirmed the diagnosis(es). . ?Surgical Pathology DIAGNOSIS A - Rectum r/o microscopic colitis, biopsy (Multiple): - ??Colonic mucosa within normal limits. CR-PX Electronically signed by: ?Jazmyne GIRALDO PhD, Courtney Verified: ??08/17/2023 16:08 ??Pathologist Performed at: ??-[facility] Dept. of [place]ology, [place] [address] Photocopying Machine Operator: Frank Turpin MD, FCAP, ??CLIA Certificate: [id number] SPECIMEN(S) SUBMITTED A - rectum r/o microscopic colitis, biopsy (Multiple) CLINICAL INFORMATION 28-year-old female with chronic constipation SPECIMEN PROCESSING A - Labeled/Fixative : Rectum rule out microscopic colitis, formalin. Quantity/Size: Multiple, averaging 0.3 cm. Tissue Description: Soft, red tissues. Sections/Process ing: Submitted in toto ??in 2 cassettes labeled A1-A2. ??sns 08/17/2023 4:08 PM EDT [facility] GI Biopsy 08/05/2023 11:0 0 AM EDT 08/05/2023 11:00 AM EDT Jamar Hair MD PATHOLOGY/CYTOLO GY ORDERABLES [facility] [place] [address] * COLONOSCOPY (08/05/2023 9:59 AM EDT) COLONOSCOPY [facility] ___ Procedure Date: 08/05/2023 9:59 AM ? Patient Name: Tana Cavazos ? Date of : 1995 ? Age: 28 ? Order #: [id number] ? Instrument Name: [id number] ? ___ Procedure: ? Colonoscopy Indications: ? [...] Active and Recently Administered Medications Care Teams Completion Engineer Relationship Specialty Start Date End Date Lorna Bal APRN [address] [place] [address] PCP - General Family Medicine 05/27/18 documented as of this encounter
--- OUTSIDE RECORDS SUMMARY | 2023-12-07 15:20 | XMS_ITS | Encounter Summary ---
Author Organization [facility] Address [facility] [place] [address] Care Team Providers Care Director Telemetry Name Role Phone Lorna Bal APRN Primary Care Provider [phone] [phone] Reason for Visit * Reason Comments Medication Refill Encounter Details Date Type Department Care Team (Late st Contact Info) Description 09/10/2023 Refill [place] [address] Hollie Ambriz MD [facility] [place] [address] Social History Tobacco Use Types Packs/Day Years Used Date Smoking Tobacco: Never Smokeless Tobacco: Never Comments:NO SMOKERS IN THE H OME Alcohol Use Standard Drinks/Week Comments No 0 (1 standard drink = 0.6 oz pur e alcohol) [facility] Inpatient Questions Answer Date Recorded Does Anyone [...] PM EST Office [place] [address] Hollie Ambriz MD [facility] [place] [address] documented as of this encounter Visit Diagnoses Not on filedocumented in this encounter Care Teams Director Telemetry Relationship Specialty Start Date End Date Lorna Bal APRN [address] [place] [address] PCP - General Family Medicine 05/27/18 documented as of this encounter
--- OUTSIDE RECORDS SUMMARY | 2023-12-07 15:20 | XMS_ITS | Encounter Summary ---
Author Organization [facility] [place] [address] Care Team Providers Care Torts Law Professor Name Role Phone Lorna Bal APRN Primary Care Provider +1 [phone] Encounter Details Date Type Department Care Team (Latest Contact Info) Description 09/29/2023 Travel Social History Tobacco Use Types Packs/Day Years Used Date Smoking Tobacco: Never Passive Smoke Exposure: Never Smokeless Tobacco: Never Comments:NO SMOKERS IN THE H OME Alcohol Use Standard Drinks/Week Comments No 0 (1 standard drink = 0.6 oz pur e alcohol) [facility] Inpatient Questions Answer Date Recorded Does [...] PM EST Office Visit Infectious Disease at [facility] [place] [phone] Hollie Ambriz MD [facility] [place] [address] documented as of this encounter Visit Diagnoses Not on filedocumented in this encounter Care Teams Torts Law Professor Relationship Specialty Start Date End Date Lorna Bal APRN [address] [place] [address] PCP - General Family Medicine 05/27/18 documented as of this encounter
--- OUTSIDE RECORDS SUMMARY | 2023-12-07 15:20 | XMS_ITS | Encounter Summary ---
Author Organization [facility] Address [facility] [place] [address] Care Team Providers Care Substance Abuse Therapist Name Role Phone Lorna Bal APRN Primary Care Provider +1 [phone] Encounter Details Date Type Department Care Team (Latest Contact Info) Description 08/05/2023 9:03 AM EDT - 08/05/2023 11:39 AM EDT Hospital [place] [address] Jamar Gastelum MD [facility] [place] [address] Discharge Disposition: Home Social History Tobacco Use [...] occurs, please contact your Doctor. Please call [phone] before 8pm Mon-Fri with problems, questions or concerns. If you call after 8pm or on weekends, call the Hospital at [phone] and ask to speak to the Sports Anchor electrician telephone and the studio control operator will contact that person for you. When should you call for help? Call [phone] anytime you think you may need emergency [...] Where can you learn more? [facility] View your After Visit Summary and more online at [email or web address] If you would like to provide feedback about your hospital experience, please call the Office of Patient and Family Relations at . If you have received this After Visit Summary in error, please immediately return it in person to the department, or notify the [facility] Privacy Office by calling toll free at between the hours of 8AM and 5PM to arrange for our retrieval of the documents at no cost to you. Content Version: 12.2 ?? [id number] [employer]. Care instructions adapted under license by [facility]. If you have questions about a medical condition or this instruction, always ask your healthcare professional. [employer] disclaims any warranty or liability for your [...] MD - 08/05/2023 10:35 AM EDT [facility] Operative Note Patient Name: Tana Cavazos : [id number] MR#: [id number] Case Date: 08/05/2023 Surgeon: Surgeon(s) and Role: [...] PM EST Office [place] [address] Hollie Ambriz MD [facility] [place] [address] documented as of this encounter Procedures Procedure Name Priority Date/Time Associated Diagnosis Comments SPECIMEN TO PATHOLOGY Routine 08/05/2023 11:01 AM EDT SURGICAL PATHOLOGY REPORT Routine 08/05/2023 11:00 AM EDT Colonoscopy, Biopsy ([id number]) 08/05/2023 10:27 AM EDT Constipation, unspecified constipation type COLONOSCOPY Routine 08/05/2023 9:59 AM EDT documented in this encounter Results * Specimen to Pathology (08/05/2023 11:01 AM EDT) AP Specimen 08/05/2023 11:0 1 AM EDT 08/05/2023 11:01 AM EDT Narrative [facility] - 08/05/2023 11:01 AM EDT Specimen requisition ordered. ??Separate Pathology report to follow Jamar Hair MD PATHOLOGY/CYTOLO GY ORDERABLES [facility] [place] [address] * Surgical Pathology Report (08/05/2023 11:00 AM EDT) Final Diagnosis [id number] ? Location: 4T; EA11; A The signing pathologist has (i) examined the relevant preparation(s) for the specimen(s) and (ii) rendered or confirmed the diagnosis(es). . ?Surgical Pathology DIAGNOSIS A - Rectum r/o microscopic colitis, biopsy (Multiple): - ??Colonic mucosa within normal limits. CR-PX Electronically signed by: ?Jazmyne GIRALDO PhD, Courtney Verified: ??08/17/2023 16:08 ??Pathologist Performed at: ??-[facility] Dept. of Pathology, [place] [address] Bulk Sealer Operator: Frank Turpin MD, FCAP, ??CLIA Certificate: [id number] SPECIMEN(S) SUBMITTED A - rectum r/o microscopic colitis, biopsy (Multiple) CLINICAL INFORMATION 28-year-old female with chronic constipation SPECIMEN PROCESSING A - Labeled/Fixative : Rectum rule out microscopic colitis, formalin. Quantity/Size: Multiple, averaging 0.3 cm. Tissue Description: Soft, red tissues. Sections/Process ing: Submitted in toto ??in 2 cassettes labeled A1-A2. ??sns 08/17/2023 4:08 PM EDT [facility] GI Biopsy 08/05/2023 11:0 0 AM EDT 08/05/2023 11:00 AM EDT Jamar Hair MD PATHOLOGY/CYTOLO GY ORDERABLES [facility] [place] [address] * COLONOSCOPY (08/05/2023 9:59 AM EDT) COLONOSCOPY [facility] Endoscopy ___ Procedure Date: 08/05/2023 9:59 AM ? Patient Name: Tana Cavazos ? Date of : 1995 ? Age: 28 ? Order #: [id number] ? Instrument Name: [id number] ? ___ Procedure: ? Colonoscopy Indications: ? [...] Active and Recently Administered Medications Care Teams Substance Abuse Therapist Relationship Specialty Start Date End Date Lorna Bal APRN [address] [place] [address] PCP - General Family Medicine 05/27/18 documented as of this encounter
--- OUTSIDE RECORDS SUMMARY | 2023-12-07 15:20 | XMS_ITS | Encounter Summary ---
Author Organization [facility] Address [facility] [place] [address] Care Team Providers Care Industrial Photographer Name Role Phone Lorna Bal APRN Primary Care Provider [phone] [phone] Encounter Details Date Type Department Care Team (Late st Contact Info) Description 12/02/2023 Orders [place] [address] Hollie Ambriz MD [facility] [place] [address] Spinal abscess; Bacteremia Social History Tobacco Use Types Packs/Day Years Used Date Smoking Tobacco: Never Passive Smoke Exposure: Never Smokeless Tobacco: Never Comments:NO SMOKERS IN THE H OME Alcohol Use Standard Drinks/Week Comments No 0 (1 standard drink = 0.6 oz pur e alcohol) [facility] Utilities Answer Date Recorded In the [...] any time in the past 12 m [facility], were you homeless or living [...] PM EST Office [place] [address] Hollie Ambriz MD [facility] [place] [address] Scheduled Orders Name Type Priority Associated Diagnoses [...] Bacteremia documented in this encounter Care Teams Industrial Photographer Relationship Specialty Start Date End Date Lorna Bal APRN [address] [place] [address] PCP - General Family Medicine 05/27/18 documented as of this encounter
--- OUTSIDE RECORDS SUMMARY | 2023-12-07 15:20 | XMS_ITS | Encounter Summary ---
Author Organization [facility] Address [facility] [place] [address] Care Team Providers Care Rn Diabetes Educator Name Role Phone Lorna Bal APRN Primary Care Provider [phone] [phone] Encounter Details Date Type Department Care Team (Late st Contact Info) Description 11/25/2023 2:00 PM EDT TH Visit (TeleHealth) [place] [address] Lilli Joy APRN [facility] [place] [address] Social History Tobacco Use Types Packs/Day Years Used Date Smoking Tobacco: Never Passive Smoke Exposure: Never Smokeless Tobacco: Never Comments:NO SMOKERS IN THE H OME Alcohol Use Standard Drinks/Week Comments No 0 (1 standard drink = 0.6 oz pur e alcohol) [facility] Utilities Answer Date Recorded In [...] any time in the past 12 m [facility], were you homeless or living in a care home (including now)? No 10/29/2023 IPV Inpatient [...] PM EST Office [place] [address] Hollie Ambriz MD [facility] [place] [address] documented as of this encounter Visit Diagnoses Not on filedocumented in this encounter Care Teams Rn Diabetes Educator Relationship Specialty Start Date End Date Lorna Bal APRN [address] [place] [address] PCP - General Family Medicine 05/27/18 documented as of this encounter
--- OUTSIDE RECORDS SUMMARY | 2023-12-07 15:20 | XMS_ITS | Encounter Summary ---
Author Organization [facility] [place] [address] Care Team Providers Care Powertrain Calibration Engineer Name Role Phone Lorna Bal APRN Primary Care Provider +1 [phone] Encounter Details Date Type Department Care Team (Late st Contact Info) Description 10/27/2023 Telephone [place] [phone] Halima García Social History Tobacco Use Types Packs/Day Years Used Date Smoking Tobacco: Never Passive Smoke Exposure: Never Smokeless Tobacco: Never Comments:NO SMOKERS IN THE H OME Alcohol Use Standard Drinks/Week Comments No 0 (1 standard drink = 0.6 oz pur e alcohol) [facility] Inpatient Questions Answer Date Recorded Does Anyone [...] Halima García - 10/27/2023 10:23 AM EDT rn rehabilitation (josy) called stating the patient's infection has returned in her back. They are requesting an order for a aspiration to be put in. documented in this encounter Plan of Treatment Upcoming Encounters Date Type Department Care Team (Late st Contact Info) Description 06/02/2024 12:30 PM EST Office Visit [place] [address] Hollie Ambriz MD [facility] [place] [address] documented as of this encounter Visit Diagnoses Not on filedocumented in this encounter Care Teams Powertrain Calibration Engineer Relationship Specialty Start Date End Date Lorna Bal APRN [address] [place] [address] PCP - General Family Medicine 05/27/18 documented as of this encounter
--- OUTSIDE RECORDS SUMMARY | 2023-12-07 15:20 | XMS_ITS | Encounter Summary ---
Author Organization [facility] Address [facility] [address] Care Team Providers Care Materials Inspector Name Role Phone Lorna Bal APRN Primary Care Provider [phone] [phone] Encounter Details Date Type Department Care Team (Latest Contact Info) Description 10/28/2023 Travel Social History Tobacco Use Types Packs/Day Years Used Date Smoking Tobacco: Never Passive Smoke Exposure: Never Smokeless Tobacco: Never Comments:NO SMOKERS IN THE H OME Alcohol Use Standard Drinks/Week Comments No 0 (1 standard drink = 0.6 oz pur e alcohol) [facility] Utilities Answer Date Recorded In the past 12 months has e [employer], gas, oil, or water [employer] threatened to shut off services in your [...] PM EST Office [place] [address] Hollie Ambriz MD [facility] [place] [address] documented as of this encounter Visit Diagnoses Not on filedocumented in this encounter Care Teams Materials Inspector Relationship Specialty Start Date End Date Lorna Bal APRN [address] [place] [address] PCP - General Family Medicine 05/27/18 documented as of this encounter
--- OUTSIDE RECORDS SUMMARY | 2023-12-07 15:20 | XMS_ITS | Encounter Summary ---
Author Organization Count Includes [facility] Address [facility] [place] [address] Care Team Providers Care Crewman Main Battle Tank Name Role Phone Lorna Bal APRN Primary Care Provider +1 [phone] Encounter Details Date Type Department Care Team (Late st Contact Info) Description 09/24/2023 10:00 AM EDT Office [place] [address] Ronn Tipton MD [facility] [place] [address] Spinal abscess; manager terminal 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 Social History Tobacco [...] remained on bactrim. Followed up with in [place]. MRI was not possible sec. To hardware. CRP/ESR was trending upwards. NSG referred her to [facility] for surgery. The patient went [...] liquefied hematoma or abscess. Neurosurgeon recommended continuing half-way suppressive antibiotics Subjective: Tana is in [place] [...] Tipton MD Infectious Diseases Fellow- [id number] Pager: [phone] 09/23/2023 11:03 AM Plan discussed with Dr. Hollie Ambriz This note was created using [employer] voice recognition software. * Hollie Ambriz MD [...] PM EST Office [place] [address] Hollie Ambriz MD [facility] [place] [address] documented as of this encounter Procedures Procedure Name Priority Date/Time Associated Diagnosis Comments CRP, ACUTE INFLAMMATION Routine 09/24/2023 11:03 AM EDT Spinal abscess COMPREHENSIVE METABOLIC PANEL Routine 09/24/2023 11:03 AM EDT Spinal abscess documented in this encounter Results * (ABNORMAL) Comprehensive metabolic panel (non-fasting) (09/24/2023 11:03 AM EDT) Glucose 98 65 - 199 mg/dL [facility] Comment:Diabetes: >=200 mg/d L plus symptoms Blood Urea Nitrogen 16 8 - 18 mg/dL [facility] Creatinine 0.27(L) 0.70 - 1.20 mg/dL [facility] Sodium 138 135 - 145 mmol/L [facility] Potassium 3.7 3.5 - 5.0 mmol/L [facility] Comment: Please note: ??Patients with WBC >100,000 may have falsely elevated Potassium levels. ??For accurate Potassium quantification in these patients send serum separator tube (gold top) for subsequent determinations. ??Contact the Clinical Chemistry Laboratory if there are any questions. Chloride 100 98 - 107 mmol/L [facility] Carbon Dioxide 23 22 - 31 mmol/L [facility] Anion Gap 15 5 - 15 mmol/L [facility] Calcium 10.3 8.5 - 10.5 mg/dL [facility] Protein, Total 8.4(H) 6.1 - 8.0 g/dL [facility] Albumin 4.6 3.2 - 5.2 g/dL [facility] Aspartate Aminotransferase 23 0 - 30 unit/L [facility] Alanine Aminotransferase 49(H) 0 - 30 unit/L [facility] Alkaline Phosphatase 302(H) 35 - 105 unit/L [facility] Bilirubin, Total 0.3 0.2 - 1.3 mg/dL [facility] Est Glomerular Filtration Rate 150 >=60 mL/min/1. 73 m?? [facility] Comment: This patient's estimated [...] Tipton MD CHEMISTRY ORDERABLES Performing Organization Address City/[facility]/ZIP Co de Phone Number [facility] [place] [address] * (ABNORMAL) CRP, acute inflammation (09/24/2023 11:03 AM EDT) C-Reactive Protein 42.3(H) <=4.9 mg/L [facility] Blood 09/24/2023 11:0 3 AM EDT 09/24/2023 11:10 AM EDT Narrative Resulting Agency Comment Spec In Lab Ronn Tipton MD CHEMISTRY ORDERABLES [facility] [place] [address] documented in this encounter Visit Diagnoses Diagnosis Spinal abscess Acute osteomyelitis, other specified site manager terminal 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 Encounter for long-term (current) use of antibiotics documented in this encounter Care Teams Crewman Main Battle Tank Relationship Specialty Start Date End Date Lorna Bal APRN [address] [place] [address] PCP - General Family Medicine 05/27/18 documented as of this encounter
--- OUTSIDE RECORDS SUMMARY | 2023-12-07 15:20 | XMS_ITS | Encounter Summary ---
Author Organization [facility] Address [facility] [place] [address] Care Team Providers Care Farm Machinery Erector Name Role Phone Lorna Bal APRN Primary Care Provider +1 [phone] Encounter Details Date Type Department Care Team (Late st Contact Info) Description 10/28/2023 Telephone [place] [address] Neva Thorpe, RN Social History Tobacco Use Types Packs/Day Years Used Date Smoking Tobacco: Never Passive Smoke Exposure: Never Smokeless Tobacco: Never Comments:NO SMOKERS IN THE H OME Alcohol Use Standard Drinks/Week Comments No 0 (1 standard drink = 0.6 oz pur e alcohol) [facility] Utilities Answer Date Recorded In the past 12 months has e [employer], gas, oil, or water [employer] threatened to shut off services in your [...] any time in the past 12 m [facility], were you homeless or living in a retirement (including now)? No 10/29/2023 DH IPV Inpatient [...] PM EST Office Visit [place] [address] Hollie Ambriz MD [facility] [place] [address] documented as of this encounter Visit Diagnoses Not on filedocumented in this encounter Care Teams Farm Machinery Erector Relationship Specialty Start Date End Date Lorna Bal APRN [address] [place] [address] PCP - General Family Medicine 05/27/18 documented as of this encounter
--- OUTSIDE RECORDS SUMMARY | 2023-12-07 15:20 | XMS_ITS | Encounter Summary ---
Author Organization [facility] [place] [address] Care Team Providers Care Airport Tower Controller Name Role Phone Lorna Bal APRN Primary Care Provider +1 [phone] Encounter Details Date Type Department Care Team (Late st Contact Info) Description 08/11/2023 Telephone [place] [address] Halima García Social History Tobacco Use Types Packs/Day Years Used Date Smoking Tobacco: Never Smokeless Tobacco: Never Comments:NO SMOKERS IN THE H OME Alcohol Use Standard Drinks/Week Comments No 0 (1 standard drink = 0.6 oz pur e alcohol) [facility] Inpatient Questions Answer Date Recorded [...] (Bactrim) 400-80 mg tablet. Please send to: [facility]- - [place], [place] - [address] [facility] documented in this encounter Plan of Treatment Upcoming Encounters Date Type Department Care Team (Late st Contact Info) Description 06/02/2024 12:30 PM EST Office Visit [place] [address] Hollie Ambriz MD [facility] [place] [address] documented as of this encounter Visit Diagnoses Not on filedocumented in this encounter Care Teams Airport Tower Controller Relationship Specialty Start Date End Date Lorna Bal APRN [address] [place] [address] PCP - General Family Medicine 05/27/18 documented as of this encounter
--- OUTSIDE RECORDS SUMMARY | 2023-12-07 15:20 | XMS_ITS | Encounter Summary ---
Author Organization [facility] Address [facility] [place] [address] Care Team Providers Care Criminal Court Judge Name Role Phone Lorna Bal APRN Primary Care Provider [phone] Encounter Details Date Type Department Care Team (Latest Contact Info) Description 08/24/2023 9:00 AM EDT TH Visit (TeleHealth) [place] [id number] Samantha Crystal APRN [facility] [place] [address] Constipation, unspecified constipation type Social History Tobacco [...] this encounter Progress Notes * Samantha Crystal, LEATHER SPONGER - 08/24/2023 9:00 AM EDT Gastroenterology Follow Up Telehealth Note Ms. Tana Cavazos is a 28 y.o. female who presents to the section of Gastroenterology for follow upfor constipation. Interval Update: -Here today with Fernanda her patient service representative. -Since her colonoscopy her bowels have been [...] stomach discomfort. She is being followed in [place] after hospital stay for a spinal infection. [...] All Drainage Procedures 06/25/2022 Mich Martino MD [facility] RAD IR ALL DRAINAGE PROCEDURES 07/04/2022 IR All Drainage Procedures 07/04/2022 Mich Martino MD [facility] IR ALL DRAINAGE PROCEDURES 07/24/2022 IR All Drainage Procedures 07/24/2022 Anurag Kumar MD [facility] IR ALL DRAINAGE PROCEDURES 09/26/2022 IR All Drainage Procedures 09/26/2022 Jamaal Jenkins, DO [facility] IR DRAIN CHECK/CHANGE/REMOVE 07/01/2022 IR Drain Check/Change/Remove 07/01/2022 Jamaal Jenkins, DO [facility] IR DRAIN CHECK/CHANGE/REMOVE 08/11/2022 IR Drain Check/Change/Remove 08/11/2022 Piter Self MD [facility] RAD IR DRAIN CHECK/CHANGE/REMOVE 08/25/2022 IR Drain Check/Change/Remove 08/25/2022 Jamaal Jenkins, DO [facility] RAD IR DRAIN CHECK/CHANGE/REMOVE 09/10/2022 IR Drain Check/Change/Remove 09/10/2022 Mich Martino MD [facility] RAD PRO APPLY OF HIP CASTS, TWO LEGS 08/15/2010 CAST APPLICATION, HIP SPICA, BOTH LEGS performed by BARRERA OLIVER at [facility] MAIN OR PRO COLONOSCOPY, BIOPSY N/A 08/05/2023 COLONOSCOPY FLEXIBLE, WITH BX (WRVU 3.56) performed by Jamar Gastelum MD at [facility] ENDOSCOPY PRO I&D, POST SPINE, LUMB/SACR/LUMBOSAC N/A 05/20/2014 @I & D, OPEN, DEEP ABSCESS, LUMBAR, SACRAL, LUMBOSACRAL performed by Freddy Isbell MD at [facility] MAIN OR PRO I&D, POST SPINE, LUMB/SACR/LUMBOSAC N/A 05/26/2014 @I & D, OPEN, DEEP ABSCESS, LUMBAR, SACRAL, LUMBOSACRAL performed by Freddy Isbell MD at [facility] MAIN OR PRO IMPACT TOOTH REMOV COMP BONY N/A 06/14/2018 SURGICAL EXTRACTIONS, REMOVAL OF IMPACTED TOOTH, COMPLETELY BONY (WRVU 1.93) performed by Keith Cotton MD at [facility] OSC PRO OSTEOTOMY FEMUR SHAFT/SUPRACONDY 08/15/2010 ??OSTEOTOMY, FEMUR SHAFT OR SUPRACONDYLAR W/O FIXATION performed by BARRERA OLIVER at [facility] OR PRO RECONSTRUC HIP SOCKET, RESEC FEM HEAD 08/15/2010 ??ACETABULOPLASTY (GIRDLESTONE), RESECTION FEMORAL HEAD, BILATERAL performed by BARRERA OLIVER [facility] MAIN OR PRO REMOVAL DEEP IMPLANT 08/15/2010 REMOVAL IMPLANT, DEEP, BRUNO performed by BARRERA OLIVER at [facility] MAIN OR PRO REMOVAL ERUPTED TOOTH WITH ELEVATION OF MUCOPERIOSTEAL FLAP N/A 06/14/2018 SURGICAL EXTRACTIONS REQUIRING ELEVATION OF MUCOPERIOSTEAL FLAP AND REMOVAL OF BONE OR SECTION OF TOOTH (WRVU 1.09) performed by Keith Cotton MD at [facility] OSC PRO REMOVE INFUSN DEVICE/PUMP N/A 05/11/2014 REMOVAL OF SPINE INFUSION PUMP performed by Jamaal Samuel MD at [facility] MAIN OR PRO REMOVE SPINAL CANAL CATHETER N/A 05/11/2014 REMOVAL OF INTRATHECAL OR EPIDURAL CATHETER performed by Jamaal Samuel MD at [facility] MAIN OR PRO REPR, DURAL/CSF LEAK, NOT REQ LAMINECTOMY N/A 05/20/2014 @REPAIR DURAL\CSF LEAK,NOT REQUIRING LAMINECTOMY performed by Freddy Isbell MD at [facility] MAIN OR MEDICATIONS: Current Outpatient Medications [...] [Transparent Dressings] Itching and Dermatitis Please use [id number] Cyclobenzaprine Other Reaction(s): Not available Doxycycline Other [...] labs. Theyare requesting [facility] go [facility] ([facility] and [facility]). I will need to request these [...] office visit: 5 minutes Samantha Crystal, MSN, LEATHER SPONGER, BAKERY ASSISTANT-C Section of Gastroenterology [place] [address] documented in this encounter Plan of Treatment Upcoming Encounters Date Type Department Care Team (Late st Contact Info) Description 06/02/2024 12:30 PM EST Office Visit [place] [address] Hollie Ambriz MD [facility] [place] [address] documented as of this encounter Visit Diagnoses Diagnosis Constipation, unspecified constipation type documented in this encounter Care Teams Criminal Court Judge Relationship Specialty Start Date End Date Lorna Bal APRN [address] [place] [address] PCP - General Family Medicine 05/27/18 documented as of this encounter
--- OUTSIDE RECORDS SUMMARY | 2023-12-07 15:20 | XMS_ITS | Encounter Summary ---
Author Organization [facility] Address [place] [address] Care Team Providers Care Mold Preparer Name Role Phone Lorna Bal APRN Primary Care Provider [phone] Encounter Details Date Type Department Care Team (Late st Contact Info) Description 10/28/2023 Telephone [place] [address] Neva Thorpe, RN Social History Tobacco Use Types Packs/Day Years Used Date Smoking Tobacco: Never Passive Smoke Exposure: Never Smokeless Tobacco: Never Comments:NO SMOKERS IN THE H OME Alcohol Use Standard Drinks/Week Comments No 0 (1 standard drink = 0.6 oz pur e alcohol) [facility] Utilities Answer Date Recorded In the past 12 months has e [employer], gas, oil, or water [employer] threatened to shut off services in your [...] time in the past 12 m [facility], were you homeless or living [...] PM EST Office [place] [address] Hollie Ambriz MD [facility] [address] documented as of this encounter Visit Diagnoses Not on filedocumented in this encounter Care Teams Mold Preparer Relationship Specialty Start Date End Date Lorna Bal APRN [address] [place] [address] PCP - General Family Medicine 05/27/18 documented as of this encounter
--- OUTSIDE RECORDS SUMMARY | 2023-12-07 15:20 | XMS_ITS | Encounter Summary ---
Author Organization Formerly [facility] [place] [address] Care Team Providers Care Credit Operations Specialist Name Role Phone Lorna Bal APRN Primary Care Provider [phone] Reason for Referral * Consultation (Routine) - Closed Specialty Diagnoses / Procedures Referred By Contac t Referred To Contact Infectious Diseases Diagnoses Spinal abscess Hollie Ambriz MD [facility] [place] [address] Hollie Ambriz MD [facility] [place] [address] Referral ID Status Reason Start Date Expiration Date V isits Requested Visits Authorized [id number] Closed Assume Subset of Care 11/02/2023 11/01/2024 1 1 * Home Health Care (Routine) - Authorized Specialty Diagnoses / Procedures Referred By Contac t Referred To Contact Diagnoses Spinal abscess Wally Rosen MD [facility] [place] [address] [facility] & [address] [place] [address] Referral ID Status Reason Start Date Expiration Date Visits Requested Visits Authorized [id number] Authorized Consult, Test & Treat 11/03/2023 05/01/2024 999 999 * Diagnostic Test (Routine) - Closed Specialty Diagnoses / Procedures Referred By Contac t Referred To Contact Radiology Diagnoses Abscess Procedures IR Drain Check/Change/Remove Andrade Melvin MD [facility] [place] [address] [facility] [place] [address] Referral ID Status Reason Start Date Expiration Date V isits Requested Visits Authorized [id number] Closed Specialty Service Requested 10/30/2023 05/01/2025 1 1 Reason for Visit * Reason Comments Abscess In back * Auth/Cert (Routine) Specialty Diagnoses / Procedures Referred By Contac t Referred To Contact Diagnoses Abscess Procedures EMERGENCY IPI Sharron Winters MD [facility] [address] [facility] Referral ID Status Reason Start Date Expiration Date Visits Re quested Visits Authorized [id number] 1 1 Encounter Details Date Type Department Care Team (Latest Contact Info) Description 10/28/2023 8:05 PM EDT - 11/03/2023 5:25 PM EDT Hospital Encounter Medical Specialites Unit Level 1 [place] [address] Siomara Hernandez MD [facility] [place] [address] Andrade Ocampo MD [facility] [place] [address] [place] [address] [place] [address] [place] [address] Abscess; Spinal abscess Discharge Disposition: Home with VNA Social History Tobacco Use Types Packs/Day Years Used Date Smoking Tobacco: Never Passive Smoke Exposure: Never Smokeless Tobacco: Never Comments:NO SMOKERS IN THE H OME Alcohol Use Standard Drinks/Week Comments No 0 (1 standard drink = 0.6 oz pur e alcohol) [facility] Utilities Answer Date Recorded In the past 12 months has th e [employer], gas, oil, or water [employer] threatened to shut off services in your [...] any time in the past 12 m [facility], were you homeless or living in a detention (including now)? No 10/29/2023 DH IPV Inpatient [...] Tana Cavazos Patient Age: 28 y.o. Language: Trinidadian Race: White Ethnicity: Not nor Admit date: [...] please contact your inpatient physician through the [facility] Profiling Machine Set Up Operator . Issues afterhours and on weekends [...] inflammatory markers. Tana was then brought to [facility], where she has been [...] 10/28/2023 9:50 PM) Result Value WORKSTATION ID [id number] Impression Focal heterogeneous organizing collection at the [...] who have questions please contact the health skin care therapist that requested your imaging first. Electronically signed by: Enid Vargas MD, [facility] ([phone]), at 10/28/2023 10:17 PM XR Abdomen 1 view (Generic) (Exam End: 11/01/2023 10:14 PM) Result Value WORKSTATION ID [id number] Impression 1. Rectal distention with stool. 2. No evidence of obstruction. 3. Bony demineralization, LEFT hip dysplasia, Mcnair rods, severe scoliosis Thank you for letting us participate in the care of this patient. If you are a health care provider and have any questions regarding this report, please contact the number below. For patients who have questions please contact the health skin care therapist that requested your imaging first. Electronically signed by: Marisela Estrella MD, [facility] ([phone]), at 11/02/2023 8:47 AM XR PICC Placement Over 5 Years with Imaging Guidance (IV Team) (Exam End: 11/03/2023 11:19 AM) Result Value WORKSTATION ID [id number] Impression Satisfactory position of left PICC. I [...] who have questions please contact the health skin care therapist that requested your imaging first. Electronically signed by: Deb Avery MD, [facility] ([phone]), at 11/03/2023 11:55 AM Pending Studies and Lab Data: none Discharge Conditions/Prognosis: stable Discharge to: home with OPAT Updated Allergies/ADRs: Allergies Allergen Reactions Fluoxetine Other (See Comments) HIVES, HEART RACES Tegaderm [Transparent Dressings] Itching and Dermatitis Please use [id number] Cyclobenzaprine Other Reaction(s): Not available Doxycycline Other (See Comments) Cough, rash Penicillins Immunizations Given this Hospitalization: Immunization History Administered Date(s) Administered Influenza (Novel L0Y7-22) Injectable 02/25/2009 Influenza Trivalent w/Preservative 04/25/2011 Influenza [...] for 6 weeks Your Inpatient Doctor(s) at [facility]: Paola Betancur General Instructions None Future Appointments and Orders Future Appointments and Orders Future Appointments Provider Department Dept Phone 11/30/2023 12:50 PM [facility] IR ROOM 4 Radiology at [facility] Arrive at: 3 RADIOLOGY [phone] Please expect a call from a radiology nurse within 3 days of your exam, you will need to follow theinstructions given at that time. Future Orders Complete By Expires IR Drain Check/Change/Remove [[id number] Custom] 11/30/2023 (Approximate) 05/31/2024 Process Instructions: Scheduling Instructions: Comments: Questions: Where will study be performed?: [facility] Radiology To be scheduled: Next available [...] Recommendation for Post Discharge IV Antibiotic Management [SUU606 CPT(R)] As directed Process Instructions: If no progress note charted, please enter Clinical details in comments. Scheduling Instructions: Comments: - If this order was signed greater than 72 hours prior to [facility] discharge, please call to confirm the accuracy of this order. Please Fax all results to: OPAT Program Infectious Disease Section [facility], [place] [address] FAX: - After hours, please contact the Infectious Disease Physician juvenile corrections officer at . - Line care instructions - see flush/heparin orders. Facilities may follow organizational policies/practices regarding heparin. - [facility] for medication administration/thermostatic controls supervisor and catheter care/maintenance authorized. - CVC/PICC Dressing Change weekly and PRN Please use CHG or Bio Patch RN: Please care for PICC line including dressing changes weekly and prn. Please draw labs every Thursday and PRN and [facility] [phone]. Please draw labs off PICC line. [facility] draw details. Please RN visit for IV ABX teaching and ongoing assessment. Long-Term for Medication Administration/Hookup and catheter care/maintenance: - Teach Patient/Caregiver goals/self-monitoring/therapy administration to independence per the Nursing Care Plan. - [facility] visit frequency; initial, weekly and 2 PRN [...] Osteomyelitis and hardware infection of lower mid retail custodial associate to sacral region of spine S/P drain placement on 10/30 Microorganisms being treated: Unknown Special Instructions: After IV ABX, should transition back to fci suppression with TMP-SMX Antibiotic: Ceftriaxone 2G IV [...] Tana Cavazos for admission to Home Health. [address] [place] [address] (home) [phone] (work) Date of : 1995 Inpatient DOCUMENTATION FOR VNA SERVICES (INCLUDING THOSE PATIENTS WITH MEDICARE COVERAGE REQUIRING HOME VNA SERVICES AND/OR HOSPICE SERVICES) PATIENT'S LOCATION: Tana Cavazos [address] [facility] [address] (home) Cell: Telephone Information: Speedometer Mechanic's Name: Fannie Villarreal (Guardian) [phone] (M) In discussion with the attending physician, it is certified that this patient is under their care and that they, or a Nurse Practitioner, Clinical Nurse specialist or Physician Label Cutter who is working directly with them, had [...] routine PICC care) HOME HEALTH CARE AGENCY: [facility]. [address] [place] [address] START OF CARE: within 24-48 hours of discharge Questions: Disciplines Requested: Nursing Recurring Lab Work Interval Expires CBC (with Diff) [[id number] Custom] Once a week until 01/03/2024 01/03/2024 Process Instructions: Scheduling Instructions: Comments: To be Drawn on Thursday. Please fax orders to [facility] ID at [phone]. Questions: Comprehensive metabolic panel (non-fasting) [[id number] Custom] Once a week until 01/03/2024 01/03/2024 Process Instructions: Scheduling Instructions: Comments: To be Drawn on Thursday. Please fax orders to [facility] ID at [phone]. Questions: CRP, acute inflammation [[id number] Custom] Once a week until 01/03/2024 01/03/2024 Process Instructions: Scheduling Instructions: Comments: To be Drawn on Thursday. Please fax orders to [facility] ID at [phone]. Questions: Discharge References/Attachments None documented in this [...] for 6 weeks Your Inpatient Doctor(s) at [facility]: Paola Carrington and Danita [...] spent >30 minutes (Day of Discharge Code 61931) involved in the final examination of the [...] 10/28/2023 9:50 PM) Result Value WORKSTATION ID [id number] Impression Focal heterogeneous organizing collection at the [...] who have questions please contact the health skin care therapist that requested your imaging first. Electronically signed by: Enid Vargas MD, [facility] ([phone]), at 10/28/2023 10:17 PM XR Abdomen 1 view (Generic) (Exam End: 11/01/2023 10:14 PM) Result Value WORKSTATION ID [id number] Impression 1. Rectal distention with stool. 2. No evidence of obstruction. 3. Bony demineralization, LEFT hip dysplasia, Mcnair rods, severe scoliosis Thank you for letting us participate in the care of this patient. If you are a health care provider and have any questions regarding this report, please contact the number below. For patients who have questions please contact the health skin care therapist that requested your imaging first. Electronically signed by: Marisela Estrella MD, [facility] ([phone]), at 11/02/2023 8:47 AM ECG: No results [...] and washout with complex plastics closure at [facility] in [place] on 02/11, after which she was treated [...] which she should likely transition back to vermin exterminator suppression with TMP-SMX. Recommendations: - Stop daptomycin [...] a total of 50 minutes on the [id number]-jd-jdyi encounter, chart review, documentation, and coordination of [...] 10/28/2023 9:50 PM) Result Value WORKSTATION ID [id number] Impression Focal heterogeneous organizing collection at the [...] who have questions please contact the health skin care therapist that requested your imaging first. Electronically signed by: Enid Vargas MD, [facility] ([phone]), at 10/28/2023 10:17 PM ECG: No results found for: DIAGLINE, QTCCALC [...] 10/28/2023 9:50 PM) Result Value WORKSTATION ID [id number] Impression Focal heterogeneous organizing collection at the [...] who have questions please contact the health skin care therapist that requested your imaging first. Electronically signed by: Enid Vargas MD, [facility] ([phone]), at 10/28/2023 10:17 PM ECG: No results found for: DIAGLINE, QTCCALC [...] check follow up in 4 weeks ordered, ticket scheduler updated. Willis Calero DO, MBA Interventional Radiology 10/31/2023 [id number] * Dimple Jimenez RN - 10/30/2023 3:33 PM EDT Called report to EUNICE Kevin at [phone] * Dimple Jimenez RN - 10/30/2023 3:04 PM EDT [facility] NURSING DATABASE Name: Tana Cavazos Date of : 1995 AGE: 28 y.o. Address: [address] [place] [address] (home) [phone] (work) Mobile: Telephone Information: Referring Provider: None [...] [Transparent Dressings] Itching and Dermatitis Please use [id number] Cyclobenzaprine Other Reaction(s): Not available Doxycycline Other [...] 10/28/2023 9:50 PM) Result Value WORKSTATION ID [id number] Impression Focal heterogeneous organizing collection at the [...] who have questions please contact the health skin care therapist that requested your imaging first. Electronically signed by: Enid Vargas MD, [facility] ([phone]), at 10/28/2023 10:17 PM ECG: No results found for: DIAGLINE, QTCCALC * Kristina Rodriguez RN - 10/30/2023 9:26 AM EDT IR for drain placement today for a paraspinal fluid collection; then ID will need to be consulted for results and to decide on OPAT They have requested referrals to: [address] or Note routed to a Drafter Chief Design who will communicate referrals to facilities and [...] 10/28/2023 9:50 PM) Result Value WORKSTATION ID [id number] Impression Focal heterogeneous organizing collection at the [...] who have questions please contact the health skin care therapist that requested your imaging first. Electronically signed by: Enid Vargas MD, [facility] ([phone]), at 10/28/2023 10:17 PM ECG: No results found for: DIAGLINE, QTCCALC documented [...] Procedure Request: Interventional Radiology Service contacted by [facility] medicine at 12:15 PM regarding the procedure [...] (bilateral); Reconstruc Hip Socket, Resec Fem Head (85262) (08/15/2010); Apply Of Hip Casts, Two Legs (47636) (08/15/2010); Removal Deep Implant (72087) (08/15/2010); Osteotomy Femur Shaft/Supracondy (32187) (2010); Remove Spinal Canal Catheter (28668) (N/A, 05/11/2014); Remove Infusn Device/Pump (99702) (N/A, 05/11/2014); I&D, Post Spine, Lumb/Sacr/Lumbosac (05683) (N/A, 05/20/2014); Repr, Dural/Csf Leak, Not Req Laminectomy (91679) (N/A, 05/20/2014); I&D, Post Spine, Lumb/Sacr/Lumbosac (05550) (N/A, 05/26/2014); Impact Tooth Remov Comp Bony (D7240) (N/A, 06/14/2018); Rem Imp Tooth W Mucoper Flp (D7210) (N/A, 06/14/2018); IR All Drainage Procedures (06/25/2022); IR Drain Check/Change/Remove (07/01/2022); IR All Drainage Procedures (07/04/2022); IR All Drainage Procedures (07/24/2022); IR Drain Check/Change/Remove (08/11/2022); IR Drain Check/Change/Remove (08/25/2022); IR Drain Check/Change/Remove (09/10/2022); IR All Drainage Procedures (09/26/2022); and Colonoscopy, Biopsy (87889) (N/A, 08/05/2023). Medications: Current Outpatient Medications Medication [...] Interventional & Diagnostic Radiology IR Team Pager: [phone] Personal Pager [phone] 10/29/2023 * Sharron Winters MD - 10/29/2023 [...] inflammatory markers. Tana was then brought to [facility], where she has been [...] [facility] INTERVENT[facility] RAD IR ALL DRAINAGE PROCEDURES 07/04/2022 IR All Drainage Procedures 07/04/2022 Mich Martino MD [facility] INTERVENTIONL RAD IR ALL DRAINAGE PROCEDURES 07/24/2022 IR All Drainage Procedures 07/24/2022 Anurag Kumar MD [facility] INTERVENTIONL RAD IR ALL DRAINAGE PROCEDURES 09/26/2022 IR All Drainage Procedures 09/26/2022 Jamaal Jenkins, DO [facility] INTERVENTIONL RAD IR DRAIN CHECK/CHANGE/REMOVE 07/01/2022 IR Drain Check/Change/Remove 07/01/2022 Jamaal Jenkins, DO [facility] INTERVENTIONL RAD IR DRAIN CHECK/CHANGE/REMOVE 08/11/2022 IR Drain Check/Change/Remove 08/11/2022 Piter Self MD [facility] INTERVENTIONL RAD IR DRAIN CHECK/CHANGE/REMOVE 08/25/2022 IR Drain Check/Change/Remove 08/25/2022 Jamaal Jenikns, DO [facility] INTERVENTIONL RAD IR DRAIN CHECK/CHANGE/REMOVE 09/10/2022 IR Drain Check/Change/Remove 09/10/2022 Mich Martino MD [facility] INTERVENTIONL RAD PRO APPLY OF HIP CASTS, TWO LEGS 08/15/2010 CAST APPLICATION, HIP SPICA, BOTH LEGS performed by BARRERA OLIVER at [facility] MAIN OR PRO COLONOSCOPY, BIOPSY N/A 08/05/2023 COLONOSCOPY FLEXIBLE, WITH BX (WRVU 3.56) performed by Jamar Gastelum MD at [facility] ENDOSCOPY PRO I&D, POST SPINE, LUMB/SACR/LUMBOSAC N/A 05/20/2014 @I & D, OPEN, DEEP ABSCESS, LUMBAR, SACRAL, LUMBOSACRAL performed by Freddy Isbell MD at [facility] MAIN OR PRO I&D, POST SPINE, LUMB/SACR/LUMBOSAC N/A 05/26/2014 @I & D, OPEN, DEEP ABSCESS, LUMBAR, SACRAL, LUMBOSACRAL performed by Freddy Isbell MD at [facility] MAIN OR PRO IMPACT TOOTH REMOV COMP BONY N/A 06/14/2018 SURGICAL EXTRACTIONS, REMOVAL OF IMPACTED TOOTH, COMPLETELY BONY (WRVU 1.93) performed by Keith Cotton MD at [facility] OSC PRO OSTEOTOMY FEMUR SHAFT/SUPRACONDY 08/15/2010 ??OSTEOTOMY, FEMUR SHAFT OR SUPRACONDYLAR W/O FIXATION performed by BARRERA OLIVER at [facility] MAIN OR PRO RECONSTRUC HIP SOCKET, RESEC FEM HEAD 08/15/2010 ??ACETABULOPLASTY (GIRDLESTONE), RESECTION FEMORAL HEAD, BILATERAL performed by BARRERA OLIVER [facility] MAIN OR PRO REMOVAL DEEP IMPLANT 08/15/2010 REMOVAL IMPLANT, DEEP, BRUNO performed by BARRERA OLIVER at [facility] MAIN OR PRO REMOVAL ERUPTED TOOTH WITH ELEVATION OF MUCOPERIOSTEAL FLAP N/A 06/14/2018 SURGICAL EXTRACTIONS REQUIRING ELEVATION OF MUCOPERIOSTEAL FLAP AND REMOVAL OF BONE OR SECTION OF TOOTH (WRVU 1.09) performed by Keith Cotton MD at [facility] OSC PRO REMOVE INFUSN DEVICE/PUMP N/A 05/11/2014 REMOVAL OF SPINE INFUSION PUMP performed by Jamaal Samuel MD at [facility] MAIN OR PRO REMOVE SPINAL CANAL CATHETER N/A 05/11/2014 REMOVAL OF INTRATHECAL OR EPIDURAL CATHETER performed by Jamaal Samuel MD at [facility] MAIN OR PRO REPR, DURAL/CSF LEAK, NOT REQ LAMINECTOMY N/A 05/20/2014 @REPAIR DURAL\CSF LEAK,NOT REQUIRING LAMINECTOMY performed by Freddy Isbell MD at [facility] MAIN OR Prior To Admission Medications: (Not in a hospital admission) Allergies: Allergies Allergen Reactions Fluoxetine Other (See Comments) HIVES, HEART RACES Tegaderm [Transparent Dressings] Itching and Dermatitis Please use [id number] Cyclobenzaprine Other Reaction(s): Not available Doxycycline Other [...] Resource Strain: Low Risk (02/21/2023) Received from [facility] Overall Financial Resource Strain (CARDIA) Difficulty of Paying Living Expenses: Not very hard Food Insecurity: Unknown (02/21/2023) Received from [facility] Hunger Vital Sign Worried About Running Out of Food in the Last Year: Never true Ran Out of Food in the Last Year: Not on file Transportation Needs: No Transportation Needs (02/21/2023) Received from [facility] PRAPARE - Transportation Lack of Transportation (Medical): No Lack of Transportation (Non-Medical): No Physical Activity: Not on file Intimate Partner Violence: Unknown (02/21/2023) Received from [facility] Humiliation, Afraid, Rape, and Kick questionnaire Fear of Current or Ex-Partner: No Emotionally Abused: Not on file Physically Abused: Not on file Sexually Abused: Not on file Housing Stability: Unknown (02/21/2023) Received from [facility] Housing Stability Vital Sign Unable to Pay for Housing in the Last Year: Not on file Number of Places Lived in the Last Year: Not on file Unstable Housing in the Last Year: No Immunizations: Immunization History Administered Date(s) Administered Influenza (Novel T4N0-05) Injectable 02/25/2009 Influenza Trivalent w/Preservative 04/25/2011 Influenza [...] Regular diet DVT Prophylaxis: LMWH Anticipated Disposition: fci care facility Code Status: Attempt Cardiopulmonary Resuscitation [...] to the planned procedure. Hand Hygiene: The overcaster did perform hand hygiene prior to line insertion. Catheter type: PICC Lot number: [id number] Procedure Technique: Skin was prepped with chlorhexidine. [...] documented in this encounter ED Notes * Butser Kennedy - 10/29/2023 2:25 AM EDT @0215 [...] outpatient blood draw. Patient was referred to [facility] by infectious disease for [...] nursing note reviewed. Exam conducted with a remelt operator present. HENT: Head: Normocephalic and atraumatic. Cardiovascular: [...] who have questions please contact the health skin care therapist that requested your imaging first. Electronically signed by: Enid Vargas MD, [facility] ([phone]), at 10/28/2023 10:17 PM Procedures Assessment and Plan: 28 y.o. female [...] fluid collection treated as likely infections on vermin exterminator antibiotics currently Bactrim presenting with about 5 [...] surgery. Initially surgery believed to be at [facility]. Was on antibiotics until a month [...] from the original [place] [address] [facility] Vascular Access Service Peripherally Inserted Central Catheter (PICC) Teaching Sheet Peripherally inserted central catheters (ttzq-[id number]-jmtd) (PICC) are used when you need IV [...] can be set up via the nurse Accountant Machine Processing to help you. What are possible complications [...] Vascular Access Device Selection, Insertion, and Management, [employer] Access Systems 01/29. A Review of the Efficacy, Safety, Use, and Administration of [employer], [employer] 2005 * Plan of Care - Arielle Patino, EUNICE - 11/03/2023 3:34 AM EDT OUTCOME EVALUATION NOTE: OUTCOME SUMMARY: Pt tachy. MD alerted. Otherwise VSS on RA. Pt nonverbal. Unable to answer orientation questions. Supervisor Adult Education at bedside. 1x BM this shift. CARMELLA [...] infusion. Please page the PICC room at [phone] or call [phone] between the hours of 7:00am and 5:30pm Thursday-Thursday for PICC line placement/scheduling. After hours the Vascular Access Service can be reached at anytime on pager [phone] PICCrequests for the following day. [...] Home Health Services: Registered Nurse Agency Referrals: [facility] [address] [place] [id number] [place] [address] or Transportation: family or friend will provide Plan going forward: Care Management will continue to follow and assist with discharge planning and coordination of care as indicated. Anticipated Date of Discharge: 11/06/2023 Kristina Rodriguez VULNERABILITY RESEARCHER arborer [phone] * Plan of Care - Arielle Patino RN - 11/02/2023 5:29 AM EDT OUTCOME EVALUATION NOTE: OUTCOME SUMMARY: Pt VSS on RA. Pt nonverbal. Unable to answer orientation questions. Moans and frowns when in pain. Pain medication given per JUN. Supervisor Adult Education at bedside. 1x BM this shift. CARMELLA [...] - Initial Consultation ID: Tana Cavazos Room: [address] [place] [address] Consulting Service: Hospital Medicine Consulting Attending: Rebel Carrington MD Admission Date: 10/28/2023 Reason for Consult: Recurrent spinal infection HPI: Tana Cavazos is a 28 y.o. female with Hx of cerebral palsy w/ spastic quadriplegia, non-verbal at baseline, as well as prior posterolateral spinal fusion in 2008 and bilateral Girdlestones in 2010, who was admitted to [facility] in May 2022 for [...] site, for which she was readmitted to [facility] on 07/22 to manage this issue. On arrival to [facility], she was afebrile without [...] evaluated by spine surgery multiple times at [facility] and was not deemeda candidate for operative intervention. Then, she was seen at [facility] for a second surgical opinion. On 08/27/2022, superficialCxs there revealed growth of Staph hemolyticus and capitis. She was initially continued on doxycycline for this but subsequently switched to TMP-SMX in early September 2022 given ?possible allergic reaction. She also did undergo re-insertion of IR drains on 09/26, with Cxs again returning negative. Eventually, she got a third surgical opinion at [facility] in [place] given the need for plastics closure of [...] continued to follow in ID clinic at [facility]. We discussed the equipoise [...] [Transparent Dressings] Itching and Dermatitis Please use [id number] Cyclobenzaprine Other Reaction(s): Not available Doxycycline Other [...] and washout with complex plastics closure at [facility] on 02/11, after which she was [...] a total of 80 minutes on the [id number] encounter, chart review, documentation, and coordination of care. X The Infectious Disease consult service will continue to follow the patient. Do not hesitate to page ID Green team with any further questions or concerns. ID will sign off. Please contact us if further consultation required. Hollie Ambriz MD Staff Physician in Infectious Diseases * Plan of Care - Jaye uMrry RN - 10/31/2023 6:00 AM EDT OUTCOME [...] Consult Note - Kelly Cummings, [facility] - 10/30/2023 4:10 PM EDT [...] have. Alternately, during off-hours you may call [phone] to contact a pharmacist. [facility] Pharmacokinetics Note Drug: Vancomycin Pharmacokinetic target: AUC24 (range) 400-600 mg/L.hr Tana Cavazos is a(n) 28 years old female initiating Vancomycin for paraspinal infection, concern forosteo Recent measured serum creatinine values: 10/30/2023 04:48 0.33 mg/dL 10/29/2023 08:37 0.31 mg/dL 10/28/2023 21:00 0.25 mg/dL Assessment: Analysis using Over[employer]fmRX gives the following patient-specific pharmacokinetic parameters: CL: [...] chat or the wound care team at [phone] with skin and wound care concerns or [...] inflammatory markers. Tana was then brought to [facility], where she has been [...] were you homeless or living in a detention (including now)?: No In the past 12 months has the [employer], gas, oil, or water [employer] threatened to shut off services in your [...] Home Address confirmed as: [address] [facility] [address] Social & Family Supports: All names listed below confirmed with patient as current and correct Extended Emergency Contact Information Primary Emergency Contact: [place] [address] [facility] Mobile Relation: Guardianship Secondary Emergency Contact: Fernanda Sorensen Mobile Relation: Paid Caregiver Mother: Anderson Thorpe Address: [address] [address] [facility] Home Phone: [phone] Mobile Current Care Provided by: other (see comments) Provides Primary Care For: no one, unable/limited ability to care for self Caregiver if needed: other (see comments) (Fannie and Fernanda) Quality of Family relationships: helpful, supportive, involved Community Resources being provided currently: homecare agency ([facility] for blood draws.) Behavioral Health History: none [...] Insurance: N/A Prescription Coverage: Yes Preferred Pharmacy: [facility] Home Delivery - [facility] [address] [facility] [address] [facility] [address] [facility] [address] [address] [place] Status: Patient is a : No Primary Care Provider confirmed: Lorna Bal, LAND ACQUISITION ANALYST [phone] Patient/Caregiver Goals of Treatment: Fannie anticipates pt to return home upon discharge. Potential Needs for Transition of Care: home health care Agency Referrals: I have met with the pharmaceutical sales representative to: discuss discharge planning needs. provide the [facility], Office of Care Management letter from the [employer] pertaining to rehab referrals. provide a letter describing our affiliations within the [facility] and educate about their right to choose where referrals are sent. provide a list of Home Health Agencies / Durable Medical Equipment vendors which serve their preferred geographic area. provided patient with [facility] Star Quality Rating handout. They have requested referrals to: [facility]. [address] [place] [address] Note routed to a Drafter Chief Design who will communicate referrals to facilities and [...] care as indicated. Alicja Franklin RN, BSN, ACM-TENTS ASSEMBLERvendor quality supervisor Office of Care Management Pager: [phone] * Consult Note - Zach Pierre [facility] - 10/29/2023 3:01 AM EDT [facility] Home Medication List Update for Medication Reconciliation 10/29/23 3:01 AM Tana Cavazos 1995 Allergies Allergen Reactions Fluoxetine Other (See Comments) HIVES, HEART RACES Tegaderm [Transparent Dressings] Itching and Dermatitis Please use [id number] Cyclobenzaprine Other Reaction(s): Not available Doxycycline Other (See Comments) Cough, rash Penicillins Person Interviewed: [facility] Quality of Interview/accuracy of medication list: excellent Sources used to compile medication list: [] Epic medication list [] SureScripts/Dispense Report [] PCP/Specialist list [x] Retail pharmacy [] Patient list [] MAR [] Other Changes made to home medication list: Additions: Bisacodyl prn Deletions: Nystatin, Probiotic, Vitamin, Psyllium Changes: None Additional Notes: [facility] Medication List Recommended changes: None The home medication list is now updated to the best of my knowledge and is ready to be reconciled by the provider. Please contact the TelePhaacy Medication Reconciliation Pharmacist at for any questions. Zach Pierre [facility] * Consult Note - Zach [...] the patient underwent a revision surgery in [place], [place] that involved removal of a R [...] [facility] INTERVENTIONL RAD IR ALL DRAINAGE PROCEDURES 07/04/2022 IR All Drainage Procedures 07/04/2022 Mich Martino MD [facility] INTERVENTIONL RAD IR ALL DRAINAGE PROCEDURES 07/24/2022 IR All Drainage Procedures 07/24/2022 Anurag Kumar MD [facility] INTERVENTIONL RAD IR ALL DRAINAGE PROCEDURES 09/26/2022 IR All Drainage Procedures 09/26/2022 Jamaal Jenkins, DO [facility] INTERVENTIONL RAD IR DRAIN CHECK/CHANGE/REMOVE 07/01/2022 IR Drain Check/Change/Remove 07/01/2022 Jamaal Jenkins, DO [facility] INTERVENTIONL RAD IR DRAIN CHECK/CHANGE/REMOVE 08/11/2022 IR Drain Check/Change/Remove 08/11/2022 Piter Self MD [facility] INTERVENTIONL RAD IR DRAIN CHECK/CHANGE/REMOVE 08/25/2022 IR Drain Check/Change/Remove 08/25/2022 Jamaal Jenkins, DO [facility] INTERVENTIONL RAD IR DRAIN CHECK/CHANGE/REMOVE 09/10/2022 IR Drain Check/Change/Remove 09/10/2022 Mich Martino MD [facility] INTERVENTIONL RAD PRO APPLY OF HIP CASTS, TWO LEGS 08/15/2010 CAST APPLICATION, HIP SPICA, BOTH LEGS performed by BARRERA OLIVER at [facility] MAIN OR PRO COLONOSCOPY, BIOPSY N/A 08/05/2023 COLONOSCOPY FLEXIBLE, WITH BX (WRVU 3.56) performed by Jamar Gastelum MD at [facility] ENDOSCOPY PRO I&D, POST SPINE, LUMB/SACR/LUMBOSAC N/A 05/20/2014 @I & D, OPEN, DEEP ABSCESS, LUMBAR, SACRAL, LUMBOSACRAL performed by Freddy Isbell MD at [facility] MAIN OR PRO I&D, POST SPINE, LUMB/SACR/LUMBOSAC N/A 05/26/2014 @I & D, OPEN, DEEP ABSCESS, LUMBAR, SACRAL, LUMBOSACRAL performed by Freddy Isbell MD at [facility] MAIN OR PRO IMPACT TOOTH REMOV COMP BONY N/A 06/14/2018 SURGICAL EXTRACTIONS, REMOVAL OF IMPACTED TOOTH, COMPLETELY BONY (WRVU 1.93) performed by Keith Cotton MD at [facility] OSC PRO OSTEOTOMY FEMUR SHAFT/SUPRACONDY 08/15/2010 ??OSTEOTOMY, FEMUR SHAFT OR SUPRACONDYLAR W/O FIXATION performed by BARRERA OLIVER at [facility] MAIN OR [facility] RECONSTRUC HIP SOCKET, RESEC FEM HEAD 08/15/2010 ??ACETABULOPLASTY (GIRDLESTONE), RESECTION FEMORAL HEAD, BILATERAL performed by BARRERA OLIVER [facility] MAIN OR PRO REMOVAL DEEP IMPLANT 08/15/2010 REMOVAL IMPLANT, DEEP, BRUNO performed by BARRERA OLIVER at [facility] MAIN OR PRO REMOVAL ERUPTED TOOTH WITH ELEVATION OF MUCOPERIOSTEAL FLAP N/A 06/14/2018 SURGICAL EXTRACTIONS REQUIRING ELEVATION OF MUCOPERIOSTEAL FLAP AND REMOVAL OF BONE OR SECTION OF TOOTH (WRVU 1.09) performed by Keith Cotton MD at [facility] OSC PRO REMOVE INFUSN DEVICE/PUMP N/A 05/11/2014 REMOVAL OF SPINE INFUSION PUMP performed by Jamaal Samuel MD at [facility] MAIN OR PRO REMOVE SPINAL CANAL CATHETER N/A 05/11/2014 REMOVAL OF INTRATHECAL OR EPIDURAL CATHETER performed by Jamaal Samuel MD at [facility] MAIN OR PRO REPR, DURAL/CSF LEAK, NOT REQ LAMINECTOMY N/A 05/20/2014 @REPAIR DURAL\CSF LEAK,NOT REQUIRING LAMINECTOMY performed by Freddy Isbell MD at [facility] MAIN OR Home Medications: (Not in a hospital admission) Allergies: Allergies Allergen Reactions Fluoxetine Other (See Comments) HIVES, HEART RACES Tegaderm [Transparent Dressings] Itching and Dermatitis Please use [id number] Cyclobenzaprine Other Reaction(s): Not available Doxycycline Other [...] course. James Swanson IV, DO Orthopaedic Surgery, 0925 ADDENDUM: Case reviewed with Dr. Galvan. Plan [...] PM EST Office [place] [address] Hollie Ambriz MD [facility] [place] [address] Scheduled Orders Name Type Priority Associated Diagnoses [...] the entire procedure. ?? Andrade Melvin MD [facility] IR ORDERABLES * Place PICC Line: Contact Vascular Access Page [phone] Extremity to exclude: No restrictions; Is PICC [...] to the planned procedure. Hand Hygiene: The overcaster did perform hand hygiene prior to line insertion. Catheter type: PICC Lot number: [id number] Procedure Technique: Skin was prepped with chlorhexidine. [...] Guidance (IV Team) (11/03/2023 11:19 AM EDT) [employer] WORKSTATION ID [id number] RAD Anatomical Region Laterality Modality N/A Radio [...] who have questions please contact the health skin care therapist that requested your imaging first. ? Electronically signed by: Deb Avery MD, [facility] ??([phone]), at 11/03/2023 11:55 AM Narrative 11/03/2023 11:55 [...] patients who have questions please contactthe health skin care therapist that requested your imaging first. Electronically signed by: Deb Avery MD, [facility]([phone]), at 11/03/2023 11:55 AM Wally Rosen MD IMG FLUORO ORDERABLE S * Differential, Automated (11/02/2023 5:26 AM EDT) Neutrophil % 69.0 % [facility] Neutrophil Absolute 5.16 1.70 - 6.10 x10(3)/[facility] Lymph % 21.7 % [facility] Lymphocytes Abs 1.6 0.9 - 3.2 x10(3)/[facility] LABOR[facility] Monocyte % 6.8 % [facility] Monocyte Abs 0.5 0.3 - 0.9 x10(3)/[facility] LABOR[facility]ORY Eos % 1.6 % [facility] Eosinophils Abs 0.1 0.0 - 0.4 x10(3)/[facility]OR[facility] Basophil % 0.5 % [facility] Baso Absolute 0.0 0.0 - 0.1 x10(3)/[facility] LABORATORY Immature Gran % 0.40 % [facility] Comment: Immature granulocytes(IG's)percentage and absolute count will include metamyelocytes, myelocytes, and promyelocytes. Blood smears from CBCs yielding IG's will be scanned manually for concordance. If this scan disagrees with the automated IG or if promyelocytes are noted, a manual differential will be performed. Immature Gran Absolute 0.03 0.00 - 0.04 x10(3)/[facility] Blood 11/02/2023 5:26 AM EDT 11/02/2023 5:43 AM EDT Narrative Resulting Agency Comment Spec In Lab Wally Rosen MD HEMATOLOGY ORDERABLE S [facility] [place] [address] * (ABNORMAL) Hemogram (11/02/2023 5:26 AM EDT) White Blood Cell 7.5 4.0 - 9.5 x10(3)/mc L [facility] Red Blood Cell 3.89(L) 4.00 - 5.21 x10(6)/mc L [facility] Hemoglobin 11.1(L) 11.7 - 15.5 g/dL [facility] Hematocrit 33.8(L) 35.7 - 45.8 % [facility] Mean Cell Volume 86.9 82.6 - 94.4 fL [facility] Mean Cell Hemoglobin 28.5 27.1 - 32.0 pg [facility] Mean Cell Hemoglobin Concentration 32.8 31.7 - 35.0 g/dL [facility] Platelet 477(H) 145 - 357 x10(3)/mc L [facility] RDW Standard Deviation 45.1 37.0 - 46.0 fL [facility] RDW coefficient of variation 14.3(H) 11.5 - 14.1 % [facility] Mean Platelet Volume 9.1 7.6 - 12.9 fL [facility] NRBC% auto 0.0 % [facility] NRBC Absolute 0.000 0.000 - 0.000 x10(3)/mc L [facility] Blood 11/02/2023 5:26 AM EDT 11/02/2023 5:43 AM EDT Narrative Resulting Agency Comment Spec In Lab Wally Rosen MD HEMATOLOGY ORDERABLE S Performing Organization Address [facility] Co de Phone Number [facility] [place] [address] * CK (11/02/2023 5:26 AM EDT) Creatine Kinase 14 0 - 160 unit/L [facility] Blood 11/02/2023 5:26 AM EDT 11/02/2023 5:44 AM EDT Narrative Resulting Agency Comment Spec In Lab Wally Rosen MD CHEMISTRY ORDERABLES Performing Organization Address [facility] [[email or web address]] de Phone Number [facility] [place] [address] * (ABNORMAL) Comprehensive metabolic panel (non-fasting) (11/02/2023 5:26 AM EDT) Glucose 109 65 - 199 mg/dL [facility] Comment:Diabetes: >=200 mg/d L plus symptoms Blood Urea Nitrogen 13 8 - 18 mg/dL [facility] Comment:result rechecked-mg Creatinine 0.27(L) 0.70 - 1.20 mg/dL [facility] Sodium 138 135 - 145 mmol/L [facility] Potassium 3.9 3.5 - 5.0 mmol/L [facility] Comment: Please note: ??Patients with WBC >100,000 may have falsely elevated Potassium levels. ??For accurate Potassium quantification in these patients send serum separator tube (gold top) for subsequent determinations. ??Contact the Clinical Chemistry Laboratory if there are any questions. Chloride 104 98 - 107 mmol/L [facility] Carbon Dioxide 21(L) 22 - 31 mmol/L [facility] Anion Gap 13 5 - 15 mmol/L [facility] Calcium 9.8 8.5 - 10.5 mg/dL [facility] Protein, Total 7.2 6.1 - 8.0 g/dL [facility] Albumin 3.5 3.2 - 5.2 g/dL [facility] Aspartate Aminotransferase 13 0 - 30 unit/L [facility] Alanine Aminotransferase 27 0 - 30 unit/L [facility] Alkaline Phosphatase 209(H) 35 - 105 unit/L [facility] Bilirubin, Total <0.2(L) 0.2 - 1.3 mg/dL [facility] Est Glomerular Filtration Rate 150 >=60 mL/min/1. 73 m?? [facility] Comment: This patient's estimated [...] Rosen MD CHEMISTRY ORDERABLES Performing Organization Address [facility]/ZIP Co de Phone Number [facility] [place] [address] * (ABNORMAL) CRP, acute inflammation (11/02/2023 5:26 AM EDT) Pathologist [facility] C-Reactive Protein 62.8(H) <=4.9 mg/L [facility] Blood 11/02/2023 5:26 AM EDT 11/02/2023 5:44 AM EDT Narrative Resulting Agency Comment Spec In Lab Wally Rosen MD CHEMISTRY ORDERABLES Performing Organization Address [facility] Co de Phone Number [facility] [place] [address] * XR Abdomen 1 view (Generic) (11/01/2023 10:14 PM EDT) [facility] WORKSTATION ID [id number] [facility] Anatomical Region Laterality Modality Abdomen N/A Digital [...] who have questions please contact the health skin care therapist that requested your imaging first. ? Narrative [...] patients who have questions please contactthe health skin care therapist that requested your imaging first. Electronically signed by: Marisela Estrella MD, [facility]([phone]), at 11/02/2023 8:47 AM Mindy Da Silva APRN IMG DX ORDERABLES * MRSA PCR Screen ([facility]/CGP/APD/NLH) (10/31/2023 6:10 PM EDT) [facility] MRSA PCR Negative Negative [facility] MRSA (Interp) Methicillin-resist ant Staphylococcus aureus (MRSA) is NOT DETECTED The MRSA target DNA sequences (mec and SCC) were not detected within the acceptable ranges using the Xpert MRSA NxG on the GeneXpert Dx System ([employer]). This suggests the absence of MRSA in the patient specimen submitted for testing. This test is cleared by the U.S. Food and Drug Administration for clinical use and its performance characteristics have been verified by the [facility] at [facility]. This result does not rule out the presence of any other organisms. Rare false negative results may occur if MRSA is present at low concentrations with much higher concentrations of other organisms including MRSE or S. aureus with an empty SCC cassette. [facility] Comment: [VERIFIED DATE]11.01.23 Verified By:Marisela Jolly (Electronic Signature) Nasopharyngeal Swab 10/31/19 6:10 PM EDT 11/01/2023 8:24 AM EDT Comment:Specimen Type->Nasop haryngeal Swab Narrative Resulting Agency Comment Spec In Lab Wally Rosen MD MOLECULAR ORDERABLES Performing Organization Address City/State/[facility] Co de Phone Number [facility] [place] [address] * Differential, Automated (10/31/2023 4:47 AM EDT) [facility] Neutrophil % 56.2 % [facility] Neutrophil Absolute 2.93 1.70 - 6.10 x10(3)/[facility] LABORATORY Lymph % 32.1 % [facility] Lymphocytes Abs 1.7 0.9 - 3.2 x10(3)/[facility] LABORATORY Monocyte % 9.0 % [facility] Monocyte Abs 0.5 0.3 - 0.9 x10(3)/[facility] LABORATORY Eos % 1.7 % [facility] Eosinophils Abs 0.1 0.0 - 0.4 x10(3)/[facility] LABOR[facility] Basophil % 0.8 % [facility] Baso Absolute 0.0 0.0 - 0.1 x10(3)/[facility]OR[facility] Immature Gran % 0.20 % [facility] Comment: Immature granulocytes(IG's)percentage and absolute count will include metamyelocytes, myelocytes, and promyelocytes. Blood smears from CBCs yielding IG's will be scanned manually for concordance. If this scan disagrees with the automated IG or if promyelocytes are noted, a manual differential will be performed. Immature Gran Absolute 0.01 0.00 - 0.04 x10(3)/[facility]OR[facility] Blood 10/31/2023 4:47 AM EDT 10/31/2023 4:55 AM EDT Narrative Resulting Agency Comment Spec In Lab Sharron Winters MD HEMATOLOGY ORDERABLE S Performing Organization Address City/State/[facility] Co de Phone Number [facility] [place] [address] * (ABNORMAL) Hemogram (10/31/2023 4:47 AM EDT) White Blood Cell 5.2 4.0 - 9.5 x10(3)/ L [facility] Red Blood Cell 3.89(L) 4.00 - 5.21 x10(6)/ L [facility] Hemoglobin 11.1(L) 11.7 - 15.5 g/dL [facility] Hematocrit 33.8(L) 35.7 - 45.8 % [facility] Mean Cell Volume 86.9 82.6 - 94.4 fL [facility] Mean Cell Hemoglobin 28.5 27.1 - 32.0 pg [facility] Mean Cell Hemoglobin Concentration 32.8 31.7 - 35.0 g/dL [facility] Platelet 488(H) 145 - 357 x10(3)/ L [facility] RDW Standard Deviation 45.6 37.0 - 46.0 fL [facility] RDW coefficient of variation 14.3(H) 11.5 - 14.1 % [facility] Mean Platelet Volume 9.0 7.6 - 12.9 fL [facility] NRBC% auto 0.0 % [facility] NRBC Absolute 0.000 0.000 - 0.000 x10(3)/mc L [facility] Blood 10/31/2023 4:47 AM EDT 10/31/2023 4:55 AM EDT Narrative Resulting Agency Comment Spec In Lab Sharron Winters MD HEMATOLOGY ORDERABLE S Performing Organization Address City/[facility]/ZIP Co de Phone Number [facility] [place] [address] * (ABNORMAL) CRP, acute inflammation (10/31/2023 4:47 AM EDT) C-Reactive Protein 99.2(H) <=4.9 mg/L [facility] Blood 10/31/2023 4:47 AM EDT 10/31/2023 4:55 AM EDT Narrative Resulting Agency Comment Spec In Lab Sharron Winters MD CHEMISTRY ORDERABLES Performing Organization Address City/[facility]/ZIP Co de Phone Number [facility] [place] [address] * (ABNORMAL) Basic Metabolic Panel (non-fasting) (10/31/2023 4:47 AM EDT) Glucose 120 65 - 199 mg/dL [facility] Comment:Diabetes: >=200 mg/d L plus symptoms Blood Urea Nitrogen 8 8 - 18 mg/dL [facility] Creatinine 0.27(L) 0.70 - 1.20 mg/dL [facility] Sodium 140 135 - 145 mmol/L [facility] Potassium 3.8 3.5 - 5.0 mmol/L [facility] Comment: Please note: ??Patients with WBC >100,000 may have falsely elevated Potassium levels. ??For accurate Potassium quantification in these patients send serum separator tube (gold top) for subsequent determinations. ??Contact the Clinical Chemistry Laboratory if there are any questions. Chloride 106 98 - 107 mmol/L [facility] Carbon Dioxide 23 22 - 31 mmol/L [facility] Anion Gap 11 5 - 15 mmol/L [facility] Calcium 9.2 8.5 - 10.5 mg/dL [facility] Est Glomerular Filtration Rate 150 >=60 mL/min/1. 73 m?? [facility] Comment: This patient's estimated [...] Winters MD CHEMISTRY ORDERABLES Performing Organization Address City/State/[facility] Co de Phone Number [facility] [place] [address] * (ABNORMAL) Sedimentation rate (10/31/2023 4:47 AM EDT) Sedimentation Rate Automated 113(H) 2 - 37 mm/hr [facility] Comment: Effective April 06, 2019 new capillary photometric technology has resulted in a change in reference ranges. It is recommended that each ESR result be reviewed with its own age appropriate reference range. Blood 10/31/2023 4:47 AM EDT 10/31/2023 4:55 AM EDT Narrative Resulting Agency Comment Spec In Lab Sharron Winters MD HEMATOLOGY ORDERABLE S [facility] [place] [address] * Magnesium (10/31/2023 4:47 AM EDT) Magnesium 0.86 0.69 - 1.07 mmol/L [facility] Blood 10/31/2023 4:47 AM EDT 10/31/2023 4:55 AM EDT Narrative Resulting Agency Comment Spec In Lab Sharron Winters MD CHEMISTRY ORDERABLES Performing Organization Address [facility] Co de Phone Number [facility] [place] [address] * IR All Drainage Procedures (10/30/2023 3:23 [...] performed this procedure. ? Sharron Winters MD [facility] IR ORDERABLES * Anaerobic Culture (10/30/2023 3:02 PM EDT) Anaerobic Culture No anaerobic organisms isolated [facility] Fluid 10/30/2023 3:02 PM EDT 10/30/2023 3:47 PM EDT Comment:Infected seroma/absc ess lower mid posterior presacral region. Fluid culture. Narrative Resulting Agency Comment Spec In Lab Andrade Melvin MD MICROBIOLOGY - GENER AL ORDERABLES [facility] [place] [address] * Body Fluid Culture, Aerobic (10/30/2023 3:02 PM EDT) [facility] Body Fluid Culture Rare mixed bacterial morphotypes suggestive of normal cutaneous zenon [facility] Gram Stain Many Neutrophils seen No microorganisms seen. [facility] Fluid 10/30/2023 3:02 PM EDT 10/30/2023 3:47 PM EDT Comment:Infected seroma/absc ess lower mid posterior presacral region. Fluid culture. Narrative Resulting Agency Comment Spec In Lab Andrade Melvin MD MICROBIOLOGY - GENER AL ORDERABLES [facility] [place] [address] * CK (10/30/2023 4:48 AM EDT) [facility] Creatine Kinase 29 0 - 160 unit/L [facility] Blood Venous Draw / Unknown 10/30/2023 4:48 AM EDT 10/30/2023 5:06 AM EDT Narrative Resulting Agency Comment Spec In Lab Hollie SIMMS CHEMISTRY ORDERABLES [facility] [place] [address] * Differential, Automated (10/30/2023 4:48 AM EDT) Pathologist [facility] Neutrophil % 67.0 % [facility] Neutrophil Absolute 4.61 1.70 - 6.10 x10(3)/[facility] Lymph % 22.3 % [facility] Lymphocytes Abs 1.5 0.9 - 3.2 x10(3)/[facility] Monocyte % 8.2 % [facility] Monocyte Abs 0.6 0.3 - 0.9 x10(3)/[facility] Eos % 1.6 % [facility] Eosinophils Abs 0.1 0.0 - 0.4 x10(3)/[facility] Basophil % 0.6 % [facility] Baso Absolute 0.0 0.0 - 0.1 x10(3)/[facility] Immature Gran % 0.30 % [facility] Comment: Immature granulocytes(IG's)percentage and absolute count will include metamyelocytes, myelocytes, and promyelocytes. Blood smears from CBCs yielding IG's will be scanned manually for concordance. If this scan disagrees with the automated IG or if promyelocytes are noted, a manual differential will be performed. Immature Gran Absolute 0.02 0.00 - 0.04 x10(3)/[facility] Blood 10/30/2023 4:48 AM EDT 10/30/2023 5:01 AM EDT Narrative Resulting Agency Comment Spec In Lab Sharron Winters MD HEMATOLOGY ORDERABLE S [facility] [place] [address] * (ABNORMAL) Hemogram (10/30/2023 4:48 AM EDT) White Blood Cell 6.9 4.0 - 9.5 x10(3)/mc L [facility] Red Blood Cell 3.97(L) 4.00 - 5.21 x10(6)/mc L [facility] Hemoglobin 11.3(L) 11.7 - 15.5 g/dL [facility] Hematocrit 34.8(L) 35.7 - 45.8 % [facility] Mean Cell Volume 87.7 82.6 - 94.4 fL [facility] Mean Cell Hemoglobin 28.5 27.1 - 32.0 pg [facility] Mean Cell Hemoglobin Concentration 32.5 31.7 - 35.0 g/dL [facility] Platelet 432(H) 145 - 357 x10(3)/mc L [facility] RDW Standard Deviation 45.6 37.0 - 46.0 [facility] RDW coefficient of variation 14.3(H) 11.5 - 14.1 % [facility] Mean Platelet Volume 9.3 7.6 - 12.9 [facility] NRBC% auto 0.0 % [facility] NRBC Absolute 0.000 0.000 - 0.000 x10(3)/mc L [facility] Blood 10/30/2023 4:48 AM EDT 10/30/2023 5:01 AM EDT Narrative Resulting Agency Comment Spec In Lab Sharron Winters MD HEMATOLOGY ORDERABLE S Performing Organization Address City/[facility]/ZIP Co de Phone Number [facility] [place] [address] * (ABNORMAL) CRP, acute inflammation (10/30/2023 4:48 AM EDT) C-Reactive Protein 120.3(H) <=4.9 mg/L [facility] Comment:result rechecked-KS Blood 10/30/2023 4:48 AM EDT 10/30/2023 5:01 AM EDT Narrative Resulting Agency Comment Spec In Lab Sharron Winters MD CHEMISTRY ORDERABLES Performing Organization Address City/[facility]/ZIP Co de Phone Number [facility] [place] [address] * (ABNORMAL) Basic Metabolic Panel (non-fasting) (10/30/2023 4:48 AM EDT) Glucose 113 65 - 199 mg/dL [facility] Comment:Diabetes: >=200 mg/d L plus symptoms Blood Urea Nitrogen 7(L) 8 - 18 mg/dL [facility] Creatinine 0.33(L) 0.70 - 1.20 mg/dL [facility] Sodium 136 135 - 145 mmol/L [facility] Potassium 4.1 3.5 - 5.0 mmol/L [facility] Comment: Please note: ??Patients with WBC >100,000 may have falsely elevated Potassium levels. ??For accurate Potassium quantification in these patients send serum separator tube (gold top) for subsequent determinations. ??Contact the Clinical Chemistry Laboratory if there are any questions. Chloride 102 98 - 107 mmol/L [facility] Carbon Dioxide 23 22 - 31 mmol/L [facility] Anion Gap 11 5 - 15 mmol/L [facility] Calcium 9.3 8.5 - 10.5 mg/dL [facility] Est Glomerular Filtration Rate 143 >=60 mL/min/1. 73 m?? [facility] Comment: This patient's estimated [...] In Lab Sharron Winters MD CHEMISTRY ORDERABLES [facility] [place] [address] * (ABNORMAL) Sedimentation rate (10/30/2023 4:48 AM EDT) Sedimentation Rate Automated 103(H) 2 - 37 mm/hr [facility] Comment: Effective April 06, 2019 new capillary photometric technology has resulted in a change in reference ranges. It is recommended that each ESR result be reviewed with its own age appropriate reference range. Blood 10/30/2023 4:48 AM EDT 10/30/2023 5:01 AM EDT Narrative Resulting Agency Comment Spec In Lab Sharron Winters MD HEMATOLOGY ORDERABLE S [facility] [place] [address] * Magnesium (10/30/2023 4:48 AM EDT) Pathologist [facility] Magnesium 0.89 0.69 - 1.07 mmol/L [facility] Blood 10/30/2023 4:48 AM EDT 10/30/2023 5:01 AM EDT Narrative Resulting Agency Comment Spec In Lab Sharron Winters MD CHEMISTRY ORDERABLES Performing Organization Address City/[facility] Co de Phone Number [facility] [place] [address] * POCT urine (10/29/2023 10:26 AM EDT) [facility] POC Urine HCG Negative POC Control Internal Controls Acceptable 10/29/2023 10:2 6 AM EDT Sharron Winters MD POINT OF CARE TEST O RDERABLES * (ABNORMAL) Differential, Automated (10/29/2023 8:37 AM EDT) Neutrophil % 74.9 % [facility] Neutrophil Absolute 6.45(H) 1.70 - 6.10 x10(3)/mc L [facility] Lymph % 16.8 % [facility] Lymphocytes Abs 1.4 0.9 - 3.2 x10(3)/mc L [facility] Monocyte % 6.1 % [facility] Monocyte Abs 0.5 0.3 - 0.9 x10(3)/mc L [facility] Eos % 1.3 % [facility] Eosinophils Abs 0.1 0.0 - 0.4 x10(3)/ L [facility] Basophil % 0.6 % [facility] Baso Absolute 0.0 0.0 - 0.1 x10(3)/ L [facility] Immature Gran % 0.30 % [facility] Comment: Immature granulocytes(IG's)percentage and absolute count will include metamyelocytes, myelocytes, and promyelocytes. Blood smears from CBCs yielding IG's will be scanned manually for concordance. If this scan disagrees with the automated IG or if promyelocytes are noted, a manual differential will be performed. Immature Gran Absolute 0.03 0.00 - 0.04 x10(3)/ L [facility] Blood 10/29/2023 8:37 AM EDT 10/29/2023 8:47 AM EDT Narrative Resulting Agency Comment Spec In Lab Brennan Maldonado MD HEMATOLOGY ORDERABL ES [facility] [place] [address] * (ABNORMAL) Hemogram (10/29/2023 8:37 AM EDT) White Blood Cell 8.6 4.0 - 9.5 x10(3)/mc L [facility] Red Blood Cell 3.98(L) 4.00 - 5.21 x10(6)/mc L [facility] Hemoglobin 11.2(L) 11.7 - 15.5 g/dL [facility] Hematocrit 33.8(L) 35.7 - 45.8 % [facility] Mean Cell Volume 84.9 82.6 - 94.4 fL [facility] Mean Cell Hemoglobin 28.1 27.1 - 32.0 pg [facility] Mean Cell Hemoglobin Concentration 33.1 31.7 - 35.0 g/dL [facility] Platelet 477(H) 145 - 357 x10(3)/ L [facility] RDW Standard Deviation 44.0 37.0 - 46.0 fL [facility] RDW coefficient of variation 14.1 11.5 - 14.1 % [facility] Mean Platelet Volume 9.3 7.6 - 12.9 fL [facility] NRBC% auto 0.0 % [facility] NRBC Absolute 0.000 0.000 - 0.000 x10(3)/mc L [facility] Blood 10/29/2023 8:37 AM EDT 10/29/2023 8:47 AM EDT Narrative Resulting Agency Comment Spec In Lab Brennan Maldonado MD HEMATOLOGY ORDERABL ES Performing Organization Address [facility]/ZIP Co de Phone Number [facility] [place] [address] * Lactate, whole blood, send to lab ([facility] (10/29/2023 8:37 AM EDT) Lactate WB 1.8 0.5 - 2.2 mmol/L [facility] Blood 10/29/2023 8:37 AM EDT 10/29/2023 8:47 AM EDT Narrative Resulting Agency Comment Spec In Lab Brennan Maldonado MD CHEMISTRY ORDERABLE S Performing Organization Address City/[facility]/ZIP Co de Phone Number [facility] [place] [address] * Phosphorus (10/29/2023 8:37 AM EDT) Phosphorus 3.6 2.5 - 4.5 mg/dL [facility] Blood 10/29/2023 8:37 AM EDT 10/29/2023 8:47 AM EDT Narrative Resulting Agency Comment Spec In Lab Brennan Maldonado MD CHEMISTRY ORDERABLE S [facility] [place] [address] * Magnesium (10/29/2023 8:37 AM EDT) Magnesium 0.94 0.69 - 1.07 mmol/L [facility] Blood 10/29/2023 8:37 AM EDT 10/29/2023 8:47 AM EDT Narrative Resulting Agency Comment Spec In Lab Brennan Maldonado MD CHEMISTRY ORDERABLE S [facility] [place] [address] * (ABNORMAL) Basic Metabolic Panel (non-fasting) (10/29/2023 8:37 AM EDT) Glucose 96 65 - 199 mg/dL [facility] Comment:Diabetes: >=200 mg/d L plus symptoms Blood Urea Nitrogen 6(L) 8 - 18 mg/dL [facility] Creatinine 0.31(L) 0.70 - 1.20 mg/dL [facility] Sodium 140 135 - 145 mmol/L [facility] Potassium 4.2 3.5 - 5.0 mmol/L [facility] Comment: Please note: ??Patients with WBC >100,000 may have falsely elevated Potassium levels. ??For accurate Potassium quantification in these patients send serum separator tube (gold top) for subsequent determinations. ??Contact the Clinical Chemistry Laboratory if there are any questions. Chloride 103 98 - 107 mmol/L [facility] Carbon Dioxide 26 22 - 31 mmol/L [facility] Anion Gap 11 5 - 15 mmol/L [facility] Calcium 9.4 8.5 - 10.5 mg/dL [facility] Est Glomerular Filtration Rate 145 >=60 mL/min/1. 73 m?? [facility] Comment: This patient's estimated [...] CHEMISTRY ORDERABLE S Performing Organization Address [facility] Co de Phone Number [facility] [place] [address] * (ABNORMAL) Urinalysis Microscopic Exam (10/29/2023 2:33 AM EDT) RBC, Urine >100(H) 0 - 4 /HPF [facility] WBC, Urine 4 0 - 5 /HPF [facility] Squamous Epithelial Cells Raw Data, Urine 4 <=4 /HPF [facility] Hyaline Casts, Urine <1 0 - 2 /LPF [facility] Comment: Interpret results with caution, microscopic results are from suboptimal specimen volume Straight Catheter Urine 10/29/2023 2:33 AM EDT 10/29/2023 2:43 AM EDT Narrative Resulting Agency Comment Spec In Lab Sharron Winters MD URINE ORDERABLES Performing Organization Address [facility]/ZIP Co de Phone Number [facility] [place] [address] * (ABNORMAL) Urinalysis with reflex Culture (10/29/2023 2:33 AM EDT) Glucose, Urine Dipstick Negative Negative mg/dL [facility] Protein, Urine Dipstick 30(A) Negative mg/dL [facility] Bilirubin, Urine Dipstick Negative Negative mg/dL [facility] Comment: Clinical correlation required for positive Urine Bilirubin results as false positive may occur with some drugs and drug related products. If a false positive is suspected a serum total bilirubin should be considered if clinically indicated. Urobilinogen, Urine Dipstick Normal Normal mg/dL [facility] pH, Urn (dipstick) 6.5 5.0 - 8.0 [facility] Blood, Urine Dipstick Large(A) Negative mg/dL [facility] Ketone, Urine Dipstick Negative Negative mg/dL [facility] Nitrite, Urine Dipstick Negative Negative [facility] Leukocytes, Urine Dipstick Negative Negative [facility] Appearance, Urine Dipstick Clear Clear [facility] Specific [place] Urine Automated >=1.030(A) 1.005 - 1.030 [facility] Color, Urine Dipstick Yellow Yellow [facility] Reflex to Culture No [facility] Straight Catheter Urine 10/29/2023 2:33 AM EDT 10/29/2023 2:43 AM EDT Narrative Resulting Agency Comment Spec In Lab Sharron Winters MD URINE ORDERABLES Performing Organization Address City/[facility]/ZIP Co de Phone Number [facility] [place] [address] * (ABNORMAL) CRP, acute inflammation (10/29/2023 2:08 AM EDT) C-Reactive Protein 133.4(H) <=4.9 mg/L [facility] Blood 10/29/2023 2:08 AM EDT 10/29/2023 2:33 AM EDT Narrative Resulting Agency Comment Spec In Lab Sharron Winters MD CHEMISTRY ORDERABLES Performing Organization Address City/[facility]/ZIP Co de Phone Number [facility] [place] [address] * Phosphorus (10/29/2023 2:08 AM EDT) Phosphorus 3.1 2.5 - 4.5 mg/dL [facility] Blood 10/29/2023 2:08 AM EDT 10/29/2023 2:33 AM EDT Narrative Resulting Agency Comment Spec In Lab Sharron Winters MD CHEMISTRY ORDERABLES Performing Organization Address City/[facility] Co de Phone Number [facility] [place] [address] * (ABNORMAL) Sedimentation rate (10/29/2023 2:08 AM EDT) [facility] Sedimentation Rate Automated >119(H) 2 - 37 mm/hr [facility] Comment: Effective April 06, 2019 new capillary photometric technology has resulted in a change in reference ranges. It is recommended that each ESR result be reviewed with its own age appropriate reference range. Blood 10/29/2023 2:08 AM EDT 10/29/2023 2:33 AM EDT Narrative Resulting Agency Comment Spec In Lab Sharron Winters MD HEMATOLOGY ORDERABLE S Performing Organization Address [facility] Co de Phone Number [facility] [place] [address] * Magnesium (10/29/2023 2:08 AM EDT) Magnesium 0.85 0.69 - 1.07 mmol/L [facility] Blood 10/29/2023 2:08 AM EDT 10/29/2023 2:33 AM EDT Narrative Resulting Agency Comment Spec In Lab Sharron Winters MD CHEMISTRY ORDERABLES Performing Organization Address [facility] Co de Phone Number [facility] [place] [address] * CT Lumbar Spine w Contrast (10/28/2023 9:50 PM EDT) WORKSTATION ID [id number] RAD Anatomical Region Laterality Modality L-spine Computed [...] who have questions please contact the health skin care therapist that requested your imaging first. ? Electronically signed by: Enid Vargas MD, [facility] ([phone]), at 10/28/2023 10:17 PM Narrative 10/28/2023 10:17 [...] patients who have questions please contactthe health skin care therapist that requested your imaging first. Electronically signed by: Enid Vargas MD, [facility]([phone]), at 10/28/2023 10:17 PM Siomara Hernandez MD [facility] [place] ORDERABLES * Differential, Automated (10/28/2023 9:00 PM EDT) Neutrophil % 66.3 % [facility] Neutrophil Absolute 5.75 1.70 - 6.10 x10(3)/[facility] Lymph % 24.1 % [facility] Lymphocytes Abs 2.1 0.9 - 3.2 x10(3)/[facility] Monocyte % 7.2 % [facility] Monocyte Abs 0.6 0.3 - 0.9 x10(3)/[facility] Eos % 1.4 % [facility] Eosinophils Abs 0.1 0.0 - 0.4 x10(3)/[facility] Basophil % 0.5 % [facility] Baso Absolute 0.0 0.0 - 0.1 x10(3)/[facility] Immature Gran % 0.50 % [facility] Comment: Immature granulocytes(IG's)percentage and absolute count will include metamyelocytes, myelocytes, and promyelocytes. Blood smears from CBCs yielding IG's will be scanned manually for concordance. If this scan disagrees with the automated IG or if promyelocytes are noted, a manual differential will be performed. Immature Gran Absolute 0.04 0.00 - 0.04 x10(3)/[facility] Blood 10/28/2023 9:00 PM EDT 10/28/2023 9:17 PM EDT Narrative Resulting Agency Comment Spec In Lab Esteban King LAND ACQUISITION ANALYST HEMATOLOGY ORDERABLE S [facility] [place] [address] * (ABNORMAL) Hemogram (10/28/2023 9:00 PM EDT) White Blood Cell 8.7 4.0 - 9.5 x10(3)/ L [facility] Red Blood Cell 4.28 4.00 - 5.21 x10(6)/mc L [facility] Hemoglobin 11.9 11.7 - 15.5 g/dL [facility] Hematocrit 36.5 35.7 - 45.8 % [facility] Mean Cell Volume 85.3 82.6 - 94.4 fL [facility] Mean Cell Hemoglobin 27.8 27.1 - 32.0 pg [facility] Mean Cell Hemoglobin Concentration 32.6 31.7 - 35.0 g/dL [facility] Platelet 525(H) 145 - 357 x10(3)/[facility] RDW Standard Deviation 43.8 37.0 - 46.0 [facility] RDW coefficient of variation 14.2(H) 11.5 - 14.1 % [facility] Mean Platelet Volume 9.2 7.6 - 12.9 fL [facility] NRBC% auto 0.0 % [facility] NRBC Absolute 0.000 0.000 - 0.000 x10(3)/ L [facility] Blood 10/28/2023 9:00 PM EDT 10/28/2023 9:17 PM EDT Narrative Resulting Agency Comment Spec In Lab Esteban King APRN HEMATOLOGY ORDERABLE S [facility] [place] [address] * (ABNORMAL) CRP, acute inflammation (10/28/2023 9:00 PM EDT) Pathologist [facility] C-Reactive Protein 148.3(H) <=4.9 mg/L [facility] Blood 10/28/2023 9:00 PM EDT 10/28/2023 9:17 PM EDT Narrative Resulting Agency Comment Spec In Lab Esteban King APRN CHEMISTRY ORDERABLES Performing Organization Address [facility] Co de Phone Number [facility] [place] [address] * (ABNORMAL) Sedimentation rate (10/28/2023 9:00 PM EDT) Pathologist [facility] Sedimentation Rate Automated >119(H) 2 - 37 mm/hr [facility] Comment: Effective April 06, 2019 new capillary photometric technology has resulted in a change in reference ranges. It is recommended that each ESR result be reviewed with its own age appropriate reference range. Blood 10/28/2023 9:00 PM EDT 10/28/2023 9:17 PM EDT Narrative Resulting Agency Comment Spec In Lab Esteban Levycoa LAND ACQUISITION ANALYST HEMATOLOGY ORDERABLE S Performing Organization Address [facility] [[email or web address]] de Phone Number [facility] [place] [address] * (ABNORMAL) Basic Metabolic Panel (non-fasting) (10/28/2023 9:00 PM EDT) [facility] Glucose 88 65 - 199 mg/dL [facility] Comment:Diabetes: >=200 mg/d L plus symptoms Blood Urea Nitrogen 7(L) 8 - 18 mg/dL [facility] Creatinine 0.25(L) 0.70 - 1.20 mg/dL [facility] Sodium 137 135 - 145 mmol/L [facility] Potassium Not Perf 3.5 - 5.0 [facility] Comment: Unable to quantitate [...] questions. Chloride 102 98 - 107 mmol/L [facility] Carbon Dioxide 25 22 - 31 mmol/L [facility] Anion Gap 10 5 - 15 mmol/L [facility] Calcium 9.4 8.5 - 10.5 mg/dL [facility] Est Glomerular Filtration Rate 153 >=60 mL/min/1. 73 m?? [facility] Comment: This patient's estimated [...] In Lab Esteban King APRN CHEMISTRY ORDERABLES [facility] [place] [address] documented in this encounter Visit Diagnoses Diagnosis [...] Maryana Cottrell RN)1740 (Stopped - Provider: Maryana oCttrell RN) 171 (New Bag - Provider: Maryana [...] ordered. documented in this encounter Care Teams Credit Operations Specialist Relationship Specialty Start Date End Date Lorna Bal, [place] [address] [place] [address] PCP - General Family Medicine 05/27/18 documented as of this encounter
--- OUTSIDE RECORDS SUMMARY | 2023-12-07 15:20 | XMS_ITS | Encounter Summary ---
Author Organization [facility] Address [place] [address] Care Team Providers Care Product Marketer Name Role Phone Lorna Bal APRN Primary Care Provider +1 -[phone] Encounter Details Date Type Department Care Team (Late st Contact Info) Description 10/28/2023 Telephone [place] [address] Neva Thorpe, RN Social History Tobacco Use Types Packs/Day Years Used Date Smoking Tobacco: Never Passive Smoke Exposure: Never Smokeless Tobacco: Never Comments:NO SMOKERS IN THE H OME Alcohol Use Standard Drinks/Week Comments No 0 (1 standard drink = 0.6 oz pur e alcohol) [facility] Utilities Answer Date Recorded In the past 12 months has e [place], gas, oil, or water [employer] threatened to shut off services in your [...] PM EST Office [place] [address] Hollie Ambriz MD [facility] [place] [address] documented as of this encounter Visit Diagnoses Not on filedocumented in this encounter Care Teams Product Marketer Relationship Specialty Start Date End Date Lorna Bal APRN [address] [place] [address] PCP - General Family Medicine 05/27/18 documented as of this encounter
--- OUTSIDE RECORDS SUMMARY | 2023-12-07 15:20 | XMS_ITS | Encounter Summary ---
Author Organization [facility] Address [facility] [place] [address] Care Team Providers Care Clinical Tech Name Role Phone Lorna Bal APRN Primary Care Provider +1 [phone] Encounter Details Date Type Department Care Team (Late st Contact Info) Description 10/27/2023 Telephone [place] [phone] Nikolay Toledo MD [facility] [place] [address] Social History Tobacco Use Types Packs/Day Years Used Date Smoking Tobacco: Never Passive Smoke Exposure: Never Smokeless Tobacco: Never Comments:NO SMOKERS IN THE H OME Alcohol Use Standard Drinks/Week Comments No 0 (1 standard drink = 0.6 oz pur e alcohol) [facility] Utilities Answer Date Recorded In the [...] any time in the past 12 m [facility], were you homeless or living in a usp (including now)? No 10/29/2023 [facility] Inpatient Questions Answer Date [...] shared plan of obtaining labs locally at [facility] and ideally coordinating a CT L-spine at [facility], followed by potential IR aspiration if a collection has reaccumulated. Ideally this would all be done before antibiotics are restarted in order to increase yield of cultures. Nikolay Toledo MD Staff Physician in Infectious Diseases documented in this encounter Plan of Treatment Upcoming Encounters Date Type Department Care Team (Late st Contact Info) Description 06/02/2024 12:30 PM EST Office [place] [address] Nikolay Toledo MD [facility] DR [place] [address] Scheduled Orders Name Type Priority Associated Diagnoses [...] documented in this encounter Care Teams Clinical Tech Relationship Specialty Start Date End Date Lorna Bal APRN [address] [place] [address] PCP - General Family Medicine 05/27/18 documented as of this encounter
--- OUTSIDE RECORDS SUMMARY | 2023-12-07 15:20 | XMS_ITS | Encounter Summary ---
Author Organization [facility] Address [facility] [place] [address] Care Team Providers Care Heavy Cleaner Name Role Phone Lorna Bal APRN Primary Care Provider +1 -[phone] Encounter Details Date Type Department Care Team (Late st Contact Info) Description 08/05/2023 10:24 AM EDT Anesthesia [place] [phone] Christopher Johansen MD [facility] [place] [address] Buster Brooke Anesthesia Record Procedure Summary Procedure [...] 1042; metacarpal vein (top of hand), right; wprn-[id number] catheter system; 22 gauge; distraction, intradermal injection, tolerated well; LDA not present upon assessment; 10/29/23; 0840 09/26/22 1042 by Ramiro Aden LPN 10/29/23 0840 by Hank Christian RN Incision 09/26/22; 1328; Righ t; gluteal; non-laparascopic puncture; Aspiration site (Gregory, DO); LDA not present upon assessment; 10/29/23 09/26/22 1328 by Nathalie Hernández RN 10/29/23 0000 by Jaye Murry RN PIV 08/05/23; 1015; vuzk-pxe-[id number] catheter system; 22 gauge; great saphenous vein [...] Procedure Summary Date: 08/05/23 Room / Location: [facility] ENDO 5 / [facility] ENDOSCOPY Anesthesia Start: 1024 Anesthesia Stop: 110 Procedure: COLONOSCOPY FLEXIBLE, WITH BX (WRVU 3.56) (Trunk) Diagnosis: Constipation, unspecified constipation type (Colonoscopy- Chronic constipation and anemia) Surgeons: Jamar Gastelum MD Responsible Provider: Christopher Johansen MD Anesthesia Type: MAC ASA Status: 3 All Anesthesia Providers: Anesthesiologist: Christopher Johansen MD Student Nurse Animal Handler: Buster Brooke Vitals Value Taken Time BP 119/81 08/05/23 1125 Temp Pulse Resp 16 08/05/23 1125 SpO2 99 % 08/05/23 1127 Pain Level 0 08/05/23 1125 Vitals shown include unfiled device data. Patient Location: PACU/[facility] Level of Consciousness: Awake and Alert Pain [...] a 28 y.o. female. Procedure(s): COLONOS[facility], [facility]ST[facility] Patient Active Problem List [...] All Drainage Procedures 06/25/2022 Mich Martino MD [facility] RAD ??? IR ALL DRAINAGE PROCEDURES 07/04/2022 IR All Drainage Procedures 07/04/2022 Mich Martino MD [facility] RAD ??? IR ALL DRAINAGE PROCEDURES 07/24/2022 IR All Drainage Procedures 07/24/2022 Anurag Kumar MD [facility] RAD ??? IR ALL DRAINAGE PROCEDURES 09/26/2022 IR All Drainage Procedures 09/26/2022 Jamaal Jenkins, DO [facility] RAD ??? IR DRAIN CHECK/CHANGE/REMOVE 07/01/2022 IR Drain Check/Change/Remove 07/01/2022 Jamaal Jenkins, DO [facility] RAD ??? IR DRAIN CHECK/CHANGE/REMOVE 08/11/2022 IR Drain Check/Change/Remove 08/11/2022 Piter Self MD [facility] RAD ??? IR DRAIN CHECK/CHANGE/REMOVE 08/25/2022 IR Drain Check/Change/Remove 08/25/2022 Jamaal Jenkins, DO [facility] RAD ??? IR DRAIN CHECK/CHANGE/REMOVE 09/10/2022 IR Drain Check/Change/Remove 09/10/2022 Mich Martino MD [facility] RAD ??? PRO APPLY OF HIP CASTS, TWO LEGS 08/15/2010 CAST APPLICATION, HIP SPICA, BOTH LEGS performed by BARRERA OLIVER at [facility] OR ? ? PRO I&D, POST SPINE, LUMB/SACR/LUMBOSAC N/A 05/20/2014 @I & D, OPEN, DEEP ABSCESS, LUMBAR, SACRAL, LUMBOSACRAL performed by Freddy Isbell MD at [facility] OR ? ? PRO I&D, POST SPINE, LUMB/SACR/LUMBOSAC N/A 05/26/2014 @I & D, OPEN, DEEP ABSCESS, LUMBAR, SACRAL, LUMBOSACRAL performed by Freddy Isbell MD at [facility] OR ??? PRO IMPACT TOOTH REMOV COMP BONY N/A 06/14/2018 SURGICAL EXTRACTIONS, REMOVAL OF IMPACTED TOOTH, COMPLETELY BONY (WRVU 1.93) performed by Keith Cotton MD at [facility] OSC ??? PRO OSTEOTOMY FEMUR SHAFT/SUPRACONDY 08/15/2010 ??OSTEOTOMY, FEMUR SHAFT OR SUPRACONDYLAR W/O FIXATION performed by BARRERA OLIVER at [facility] MAIN OR ??? PRO RECONSTRUC HIP SOCKET, RESEC FEM HEAD 08/15/2010 ??ACETABULOPLASTY (GIRDLESTONE), RESECTION FEMORAL HEAD, BILATERAL performed by BARRERA OLIVER [facility] MAIN OR ??? PRO REMOVAL DEEP IMPLANT 08/15/2010 REMOVAL IMPLANT, DEEP, BRUNO performed by BARRERA OLIVER at [facility] MAIN OR ??? PRO REMOVAL ERUPTED TOOTH WITH ELEVATION OF MUCOPERIOSTEAL FLAP N/A 06/14/2018 SURGICAL EXTRACTIONS REQUIRING ELEVATION OF MUCOPERIOSTEAL FLAP AND REMOVAL OF BONE OR SECTION OF TOOTH (WRVU 1.09) performed by Keith Cotton MD at [facility] OSC ??? PRO REMOVE INFUSN DEVICE/PUMP N/A 05/11/2014 REMOVAL OF SPINE INFUSION PUMP performed by Jamaal Samuel MD at [facility] MAIN OR ??? PRO REMOVE SPINAL CANAL CATHETER N/A 05/11/2014 REMOVAL OF INTRATHECAL OR EPIDURAL CATHETER performed by Jamaal Samuel MD at [facility] MAIN OR ??? PRO REPR, DURAL/CSF LEAK, NOT REQ LAMINECTOMY N/A 05/20/2014 @REPAIR DURAL\CSF LEAK,NOT REQUIRING LAMINECTOMY performed by Freddy Isbell MD at [facility] MAIN OR Social History Tobacco Use ??? Smoking status: Never ??? Smokeless tobacco: Never ??? Tobacco comments: NO SMOKERS IN THE HOME Substance Use Topics ??? Alcohol use: No Social History Substance and Sexual Activity Drug Use No Allergies Allergen Reactions ??? Fluoxetine Other (See Comments) HIVES, HEART RACES ??? Tegaderm [Transparent Dressings] Itching and Dermatitis Please use [id number] ??? Cyclobenzaprine Other Reaction(s): Not available ??? [...] risks discussed with patient. Plan discussed with JOINT CUTTER MACHINE. Anesthesia Screening documented in this encounter Plan of Treatment Upcoming Encounters Date Type Department Care Team (Late st Contact Info) Description 06/02/2024 12:30 PM EST Office [place] [phone] Hollie Ambriz MD [facility] [place] [address] documented as of this encounter Visit Diagnoses [...] mg documented in this encounter Care Teams Heavy Cleaner Relationship Specialty Start Date End Date Lorna Bal, [place] [address] [place] [address] PCP - General Family Medicine 05/27/18 documented as of this encounter
--- OUTSIDE RECORDS SUMMARY | 2023-12-07 15:20 | XMS_ITS | Encounter Summary ---
Author Organization [facility] Address [facility] [place] [address] Care Team Providers Care Scarifier Operator Name Role Phone Lorna Bal APRN Primary Care Provider +1 -[phone] Encounter Details Date Type Department Care Team (Late st Contact Info) Description 11/09/2023 Telephone [place] [phone] Yas Tracy, RN Social History Tobacco Use Types Packs/Day Years Used Date Smoking Tobacco: Never Passive Smoke Exposure: Never Smokeless Tobacco: Never Comments:NO SMOKERS IN THE H OME Alcohol Use Standard Drinks/Week Comments No 0 (1 standard drink = 0.6 oz pur e alcohol) [facility] Utilities Answer Date Recorded In the past 12 months has e electric, gas, oil, or water [employer] threatened to shut off services in your [...] time in the past 12 m [facility], were you homeless or living [...] Office [place] [phone] Hollie Ambriz MD [facility] [place] [address] documented as of this encounter Visit Diagnoses Not on filedocumented in this encounter Care Teams Scarifier Operator Relationship Specialty Start Date End Date Lorna Bal APRN [address] [place] [address] PCP - General Family Medicine 05/27/18 documented as of this encounter
--- OUTSIDE RECORDS SUMMARY | 2023-12-07 15:20 | XMS_ITS | Encounter Summary ---
Author Organization [facility] Address [facility] [place] [address] Care Team Providers Care Metal Wire Coating Operator Name Role Phone Lorna Bal APRN Primary Care Provider +1 -[phone] Encounter Details Date Type Department Care Team (Late st Contact Info) Description 10/28/2023 Telephone [place] [address] Neva Thorpe, RN Social History Tobacco Use Types Packs/Day Years Used Date Smoking Tobacco: Never Passive Smoke Exposure: Never Smokeless Tobacco: Never Comments:NO SMOKERS IN THE H OME Alcohol Use Standard Drinks/Week Comments No 0 (1 standard drink = 0.6 oz pur e alcohol) [facility] Utilities Answer Date Recorded In the past 12 months has e [employer], gas, oil, or water [employer] threatened to shut off services in your [...] any time in the past 12 m [facility], were you homeless or living in a chcf (including now)? No 10/29/2023 [facility] Inpatient [...] back ot to Fannie: Labs drawn at [facility] today-waiting for results Area still on her [...] about Fannie being the contact on the [facility] portal. 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 Plan: Fannie will call back once she has the lab results. Will call to schedule CT Scan. Fannie understands that the department is closed tomorrow for the holiday. This RN explained how to reach the provider national sales executive if necessary. Will review with Dr Hollie Ambriz 10/28/2023 1634 [facility] faxing labs over. Fannie states she is bringing Tana into the ER here at to be evaluated. Dr Ambriz updated documented in this encounter Plan of Treatment Upcoming Encounters Date Type Department Care Team (Late st Contact Info) Description 06/02/2024 12:30 PM EST Office Visit [place] [address] Hollie Ambriz MD [facility] [place] [address] documented as of this encounter Visit Diagnoses Not on filedocumented in this encounter Care Teams Metal Wire Coating Operator Relationship Specialty Start Date End Date Lorna Bal APRN [address] [place] [address] PCP - General Family Medicine 05/27/18 documented as of this encounter
--- OUTSIDE RECORDS SUMMARY | 2023-12-07 15:20 | XMS_ITS | Encounter Summary ---
[place] [address] Care Team Providers Care Installers Mechanical Name Role Phone Lorna Bal APRN Primary Care Provider +1 -[phone] Reason for Visit * Occupational Therapy (Routine) - Closed Specialty Diagnoses / Procedures Referred By Karlo t Referred To Contact Occupational Therapy Diagnoses Chronic pain of right thumb Lucho Foster MD [facility] [place] [address] [facility] [place] [address] Referral ID Status Reason Start Date Expiration Date V isits Requested Visits Authorized [id number] Closed Consult Only 09/29/2023 09/28/2024 30 30 Encounter Details Date Type Department Care Team (Latest Contact Info) Description 09/29/2023 10:00 AM EDT Office [place] [address] Gaby Lake OT Spastic quadriparesis [...] with demonstration in therapy. 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
--- OUTSIDE RECORDS SUMMARY | 2023-12-07 15:20 | XMS_ITS | Encounter Summary ---
Author Organization [facility] Address [facility] [place] [address] Care Team Providers Care Water Main Installer Helper Name Role Phone Lorna Bal APRN Primary Care Provider +1 -[phone] Reason for Visit * Reason Onset Date Comments Medication Refill 08/11/2023 Encounter Details Date Type Department Care Team (Late st Contact Info) Description 08/11/2023 [place] [address] Hollie Ambriz MD [facility] [address] [place] [address] Social History Tobacco Use Types Packs/Day Years [...] PM EST Office [place] [address] Hollie Ambriz MD [facility] [place] [address] documented as of this encounter Visit Diagnoses Not on filedocumented in this encounter Care Teams Water Main Installer Helper Relationship Specialty Start Date End Date Lorna Bal APRN [address] [place] [address] PCP - General Family Medicine 05/27/18 documented as of this encounter
--- OUTSIDE RECORDS SUMMARY | 2023-12-07 15:20 | XMS_ITS | Encounter Summary ---
Author Organization [facility] Address [facility] [place] [address] Care Team Providers Care Warp Yarn Sorter Name Role Phone Loran Bal APRN Primary Care Provider +1 -[phone] Encounter Details Date Type Department Care Team (Late st Contact Info) Description 09/28/2023 Orders Only [place] [address] Hollie Ambriz MD [facility] [place] [address] manager intermediate 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; Spinal abscess; Acute [...] PM EST Office Visit [place] [address] Hollie Ambriz MD [facility] [place] [address] documented as of this encounter Visit Diagnoses Diagnosis manager intermediate 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 Encounter for long-term (current) use of antibiotics Spinal abscess Acute osteomyelitis, other specified site Acute hematogenous osteomyelitis, unspecified site documented in this encounter Care Teams Warp Yarn Sorter Relationship Specialty Start Date End Date Lorna Bal APRN [address] [place] [address] PCP - General Family Medicine 05/27/18 documented as of this encounter
--- OUTSIDE RECORDS SUMMARY | 2023-12-07 15:20 | XMS_ITS | Encounter Summary ---
Author Organization [facility] Address [facility] [place] [address] Care Team Providers Care Tour Director Name Role Phone Lorna Bal APRN Primary Care Provider +1 -[phone] Reason for Visit * Consultation (Routine) - Closed Specialty Diagnoses / Procedures Referred By Contac t Referred To Contact Infectious Diseases Diagnoses Spinal abscess Nikolay Toledo MD [facility] [place] [address] Nikolay Toledo MD [facility] [place] [address] Referral ID Status Reason Start Date Expiration Date V isits Requested Visits Authorized [id number] Closed Assume Subset of Care 11/02/2023 11/01/2024 1 1 Encounter Details Date Type Department Care Team (Late st Contact Info) Description 12/03/2023 12:30 PM EDT Office Visit [place] [address] Nikolay Toledo MD [facility] [place] [address] 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 Dx); group home 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 Social History Tobacco Use Types Packs/Day Years Used Date Smoking Tobacco: Never Passive Smoke Exposure: Never Smokeless Tobacco: Never Comments:NO SMOKERS IN THE H OME Alcohol Use Standard Drinks/Week Comments No 0 (1 standard drink = 0.6 oz pur e alcohol) [facility] Utilities Answer Date Recorded In [...] [place] in 2010, who was admitted to [facility] in May 2022 for redness and tenderness [...] site, for which she was readmitted to [facility] on 07/22 to manage this issue. On arrival to [facility], she was afebrile without leukocytosis. Repeat of [...] evaluated by spine surgery multiple times at [facility] and was not deemeda candidate for operative intervention. Then, she was seen at [facility] for a second surgical opinion. On 08/27/2022, superficialCxs there revealed growth of Staph hemolyticus and capitis. She was initially continued on doxycycline for this but subsequently switched to TMP-SMX in early September 2022 given ?possible allergic reaction. She also did undergo re-insertion of IR drains on 09/26, with Cxs again returning negative. Eventually, she got a third surgical opinion at [facility] in [place] given the need for plastics closure of [...] continued to follow in ID clinic at [facility]. We discussed the equipoise as to whether [...] need to be placed back onto a dedicated intermodal truck driver suppressive antibiotic. Today, patient presents to ID clinic for [id number] visit, accompanied by her caregivers, Liz Mckay. [...] [Transparent Dressings] Itching and Dermatitis Please use [id number] Cyclobenzaprine Other Reaction(s): Not available Doxycycline Other [...] and washout with complex plastics closure at [facility] in [place] on 02/11/23, after which she was treated with 6 weeks of IV vancomycin + pip-tazo. Then, she was placed on suppressive TMP-SMX to complete a total of ~7 months of treatment, which was eventually stopped on 09/24/23. She was re-admitted to [facility] in early October 2023 with erythema and [...] TMP-SMX dose to a lower dose for dedicated intermodal truck driver suppression ofinfection, such as 1 DS tab daily, if all continues to go well. I spent a total of 35 minutes on the date of service on the [id number] encounter, chart review, clinical decision making, documentation, [...] PM EST Office [place] [address] Nikolay Toledo MD [facility] DR [place] [address] documented as of this encounter Visit Diagnoses Diagnosis Spinal abscess- Primary Acute osteomyelitis, other specified site terminal gauger 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 Encounter for long-term (current) use of antibiotics documented in this encounter Care Teams Tour Director Relationship Specialty Start Date End Date Lorna Bal APRN [address] [place] [address] PCP - General Family Medicine 05/27/18 documented as of this encounter
--- OUTSIDE RECORDS SUMMARY | 2023-12-07 15:20 | XMS_ITS | Encounter Summary ---
[place] [address] Care Team Providers Care Professor Of Theatre Name Role Phone Lorna Bal APRN Primary Care Provider [phone] [phone] Encounter Details Date Type Department Care Team [...] PM EST Office Visit [place] [address] Hollie Ambriz MD [facility] [place] [address] documented as of this encounter Visit Diagnoses Not on filedocumented in this encounter Care Teams Professor Of Theatre Relationship Specialty Start Date End Date Lorna Bal APRN [address] [place] [address] PCP - General Family Medicine 05/27/18 documented as of this encounter
--- OUTSIDE RECORDS SUMMARY | 2023-12-07 15:21 | XMS_ITS | Encounter Summary ---
Author Organization [facility] [address] Care Team Providers Care Sales Counselor Name Role Phone Lorna Bal APRN Primary Care Provider [phone] [phone] Reason for Referral * Diagnostic Test (Routine) - Closed Specialty Diagnoses / Procedures Referred By Contac t Referred To Contact Radiology Diagnoses Spinal abscess Procedures CT Lumbar Spine w Contrast George Tipton MD [facility] [place] [address] [facility] [place] [address] Referral ID Status Reason Start Date Expiration Date V isits Requested Visits Authorized [id number] Closed Specialty Service Requested 04/15/2023 10/14/2024 1 1 Reason for Visit * Diagnostic Test (Routine) - Closed Specialty Diagnoses / Procedures Referred By Contac t Referred To Contact Radiology Diagnoses Spinal abscess Procedures CT Lumbar Spine w Contrast George Tipton MD [facility] [place] [address] [facility] [place] [address] Referral ID Status Reason Start Date Expiration Date V isits Requested Visits Authorized [id number] Closed Specialty Service Requested 04/15/2023 10/14/2024 1 1 Encounter Details Date Type Department Care Team (Latest Contact Info) Description 04/16/2023 3:10 PM EST - 04/16/2023 11:59 PM EST Hospital [place] [address] [place] [address] Spinal abscess Discharge Disposition: Home [...] PM EST Office [place] [address] Hollie Ambriz MD [facility] [place] [address] documented as of this encounter Procedures Procedure [...] who have questions please contact the health wound care specialist that requested your imaging first. ? Electronically signed by: Bobo Keane MD, [facility] ([phone]), at 04/17/2023 10:53 AM Narrative 04/17/2023 10:53 [...] patients who have questions please contactthe health wound care specialist that requested your imaging first. Electronically signed by: Bobo Keane MD, [facility]([phone]), at 04/17/2023 10:53 AM Keri Trevino MD [...] mLs documented in this encounter Care Teams Sales Counselor Relationship Specialty Start Date End Date Lorna Bal APRN [address] [place] [address] PCP - General Family Medicine 05/27/18 documented as of this encounter
--- OUTSIDE RECORDS SUMMARY | 2023-12-07 15:21 | XMS_ITS | Encounter Summary ---
Author Organization [facility] [address] Care Team Providers Care Manufacturer'S Representative Name Role Phone Lorna Bal APRN Primary Care Provider [phone] [phone] Encounter Details Date Type Department Care Team (Late st Contact Info) Description 04/03/2023 [place]phone [place] [phone] Halima García Social History Tobacco Use Types [...] the lab orders were never sent to [facility]. I reviewed the lab orders and she mentioned the ESR was missing. Jack Varghese documented in this encounter Plan of Treatment Upcoming Encounters Date Type Department Care Team (Late st Contact Info) Description 06/02/2024 12:30 PM EST Office [place] [address] Hollie Ambriz MD [facility] [place] [address] documented as of this encounter Visit Diagnoses Diagnosis Spinal abscess Acute osteomyelitis, other specified site documented in this encounter Care Teams Manufacturer'S Representative Relationship Specialty Start Date End Date Lorna Bal APRN [address] [place] [address] PCP - General Family Medicine 05/27/18 documented as of this encounter
--- OUTSIDE RECORDS SUMMARY | 2023-12-07 15:21 | XMS_ITS | Encounter Summary ---
[place] [address] Care Team Providers Care Barrel Filler Head Name Role Phone Lorna Bal APRN Primary Care Provider [phone] [phone] Reason for Referral * Diagnostic Test (Routine) - Closed Specialty Diagnoses / Procedures Referred By Contac t Referred To Contact Radiology Diagnoses Spinal abscess Procedures IR All Drainage Procedures IR All Biopsy Procedures Jamar Dasilva MD [facility] [place] [address] [place] [address] Referral ID Status Reason Start Date Expiration Date V isits Requested Visits Authorized [id number] Closed Specialty Service Requested 09/26/2022 03/28/2024 1 1 Reason for Visit * Diagnostic Test (Routine) - Closed Specialty Diagnoses / Procedures Referred By Contac t Referred To Contact Radiology Diagnoses Spinal abscess Procedures IR All Drainage Procedures IR All Biopsy Procedures Jamar Dasilva MD [facility] [place] [address] [place] [address] Referral ID Status Reason Start Date Expiration Date V isits Requested Visits Authorized [id number] Closed Specialty Service Requested 09/26/2022 03/28/2024 1 1 Encounter Details Date Type Department Care Team (Latest Contact Info) Description 09/26/2022 12:13 PM EDT - 09/26/2022 11:59 PM EDT Hospital [place] [address] Jamar Dasilva MD [facility] [place] [address] Spinal abscess Discharge Disposition: Home [...] is during regular office hours, please call [phone]. If it is after regular office hours, or on weekends or holidays, please call [phone] and ask to speak to the Artificial Fly Tier estate conservator for Interventional Radiology. You have received medication [...] of : 1995 AGE: 27 y.o. Address: [address] [place] [address] Phone: [phone] (home) Mobile: Telephone Information: Referring Provider: Jamar Dasilva REASON FOR VISIT: Paralumbar fluid aspiration Order Questions Answers Where will study be performed? [facility] Radiology [120] Is the patient on anticoagulant [...] [Transparent Dressings] Itching and Dermatitis Please use [id number] ??? Penicillins Pertinent PMH: Patient Active Problem [...] Questions Answers Where will study be performed? [facility] Radiology [120] Is the patient on anticoagulant [...] All Drainage Procedures 06/25/2022 Mich Martino MD [facility] INTERVENTIONL RAD ??? IR ALL DRAINAGE PROCEDURES 07/04/2022 IR All Drainage Procedures 07/04/2022 Mich Martino MD [facility] RAD ??? IR ALL DRAINAGE PROCEDURES 07/24/2022 IR All Drainage Procedures 07/24/2022 Anurag Kumar MD [facility] RAD ??? IR DRAIN CHECK/CHANGE/REMOVE 07/01/2022 IR Drain Check/Change/Remove 07/01/2022 Jamaal Jenkins, DO [facility] RAD ??? IR DRAIN CHECK/CHANGE/REMOVE 08/11/2022 IR Drain Check/Change/Remove 08/11/2022 Piter Self MD [facility] RAD ??? IR DRAIN CHECK/CHANGE/REMOVE 08/25/2022 IR Drain Check/Change/Remove 08/25/2022 Jamaal Jenkins, DO [facility] RAD ??? IR DRAIN CHECK/CHANGE/REMOVE 09/10/2022 IR Drain Check/Change/Remove 09/10/2022 Mich Martino MD [facility] RAD ??? PRO APPLY OF HIP CASTS, TWO LEGS 08/15/2010 CAST APPLICATION, HIP SPICA, BOTH LEGS performed by BARRERA OLIVER at [facility] OR ? ? PRO I&D, POST SPINE, LUMB/SACR/LUMBOSAC N/A 05/20/2014 @I & D, OPEN, DEEP ABSCESS, LUMBAR, SACRAL, LUMBOSACRAL performed by Freddy Isbell MD at [facility] OR ? ? PRO I&D, POST SPINE, LUMB/SACR/LUMBOSAC N/A 05/26/2014 @I & D, OPEN, DEEP ABSCESS, LUMBAR, SACRAL, LUMBOSACRAL performed by Freddy Isbell MD at [facility] MAIN OR ??? PRO IMPACT TOOTH REMOV COMP BONY N/A 06/14/2018 SURGICAL EXTRACTIONS, REMOVAL OF IMPACTED TOOTH, COMPLETELY BONY (WRVU 1.93) performed by Keith Cotton MD at [facility] OSC ??? PRO OSTEOTOMY FEMUR SHAFT/SUPRACONDY 08/15/2010 ??OSTEOTOMY, FEMUR SHAFT OR SUPRACONDYLAR W/O FIXATION performed by BARRERA OLIVER at [facility] OR ??? PRO RECONSTRUC HIP SOCKET, RESEC FEM HEAD 08/15/2010 ??ACETABULOPLASTY (GIRDLESTONE), RESECTION FEMORAL HEAD, BILATERAL performed by BARRERA OLIVER [facility] OR ??? PRO REMOVAL DEEP IMPLANT 08/15/2010 REMOVAL IMPLANT, DEEP, BRUNO performed by BARRERA OLIVER at [facility] OR ??? PRO REMOVAL ERUPTED TOOTH WITH ELEVATION OF MUCOPERIOSTEAL FLAP N/A 06/14/2018 SURGICAL EXTRACTIONS REQUIRING ELEVATION OF MUCOPERIOSTEAL FLAP AND REMOVAL OF BONE OR SECTION OF TOOTH (WRVU 1.09) performed by Keith Cotton MD at [facility] OSC ??? PRO REMOVE INFUSN DEVICE/PUMP N/A 05/11/2014 REMOVAL OF SPINE INFUSION PUMP performed by Jamaal Samuel MD at [facility] OR ??? PRO REMOVE SPINAL CANAL CATHETER N/A 05/11/2014 REMOVAL OF INTRATHECAL OR EPIDURAL CATHETER performed by Jamaal Samuel MD at [facility] OR ??? PRO REPR, DURAL/CSF LEAK, NOT REQ LAMINECTOMY N/A 05/20/2014 @REPAIR DURAL\CSF LEAK,NOT REQUIRING LAMINECTOMY performed by Freddy Isbell MD at [facility] OR Social History and Habits: Social History [...] PM EST Office Visit [place] [address] Hollie Ambriz MD [facility] [place] [address] documented as of this encounter Procedures Procedure [...] present throughout the procedure. Jamar Dasilva MD [facility] [place] ORDERABLES * Anaerobic Culture (09/26/2022 12:49 PM EDT) Anaerobic Culture No anaerobic organisms isolated [facility] Abscess STRUCTURE OF BACK OF TRUNK / Unknown 09/26/2022 12:49 PM EDT 09/26/2022 2:05 PM EDT Narrative Resulting Agency Comment Spec In Lab Jamar Dasilva MD MICROBIOLOGY - GE NERAL ORDERABLES Performing Organization Address City/[facility] [place] [address] * Abscess/Wound Aspirate Culture (09/26/2022 12:49 PM EDT) Abscess/Wound Aspirate Culture No growth [facility] Gram Stain Few Neutrophils seen No microorganisms seen. [facility] Abscess STRUCTURE OF BACK OF TRUNK / Unknown 09/26/2022 12:49 PM EDT 09/26/2022 2:05 PM EDT Narrative Resulting Agency Comment Spec In Lab Jamar Dasilva MD MICROBIOLOGY - GE NERAL ORDERABLES Performing Organization Address [facility] [place] [address] * Calcofluor White Stain (09/26/2022 12:49 PM EDT) Calcofluor Stain Calcofluor White Preparation: Negative [facility] Abscess 09/26/2022 12:4 9 PM EDT 09/26/2022 2:05 PM EDT Narrative Resulting Agency Comment Spec In Lab Jamar Dasilva MD MICROBIOLOGY - GE NERAL ORDERABLES Performing Organization Address City/[facility] Co de Phone Number [facility] [place] [place] [address] * Fungus culture (09/26/2022 12:49 PM EDT) Fungus Culture No Fungus isolated [facility] Abscess 09/26/2022 12:4 9 PM EDT 09/26/2022 2:05 PM EDT Narrative Resulting Agency Comment Spec In Lab Jamar Dasilva MD MICROBIOLOGY - GE NERAL ORDERABLES Performing Organization Address City/[facility]/ZIP Co de Phone Number [facility] [place] [place] [address] * AFB culture Back (09/26/2022 12:49 PM EDT) Acid Fast Bacilli Culture No Acid Fast Bacilli isolated [facility] Acid Fast Stain No Acid Fast Bacilli seen [facility] Back 09/26/2022 12:4 9 PM EDT 09/26/2022 2:05 PM EDT Narrative Resulting Agency Comment Spec In Lab Jamar Dasilva MD MICROBIOLOGY - [facility] ORDERABLES [facility] [place] [place] [address] documented in this encounter Visit Diagnoses Diagnosis [...] mLs documented in this encounter Care Teams Barrel Filler Head Relationship Specialty Start Date End Date Lorna Bal APRN [address] [place] [address] PCP - General Family Medicine 05/27/18 documented as of this encounter
--- OUTSIDE RECORDS SUMMARY | 2023-12-07 15:21 | XMS_ITS | Encounter Summary ---
Author Organization [facility] Address [facility] [place] [address] Care Team Providers Care Associate Professor Of Pathology Name Role Phone Lorna Bal APRN Primary Care Provider [phone] [phone] Encounter Details Date Type Department Care Team (Late st Contact Info) Description 01/29/2023 1:00 PM EDT Office [place] [phone] Reji Macdonald MD [facility] [place] [address] Spinal abscess Social History Tobacco Use Types [...] her postoperative care for planned operation and [place]. She is here with her caregivers but her mother is her legal guardian. She has been seen at [facility] been seen by the orthopedic team and infectious diseases for extended periods of time. It is unclear as to what the long-term plan was for management of thisbut eventually apparently she made it to [place] after referral by infectious disease and then subsequently was referred to [place]. At that point time she was seen [...] Drainage Procedures 06/25/[address] [facility] IR ALL DRAINAGE PROCEDURES 07/04/2022 IR All Drainage Procedures 07/04/[address] [facility] IR ALL DRAINAGE PROCEDURES 07/24/2022 IR All Drainage Procedures 07/24/[address] [facility] IR ALL DRAINAGE PROCEDURES 09/26/2022 IR All Drainage Procedures 09/26/2022 Jamaal Jenkins, DO [facility] IR DRAIN CHECK/CHANGE/REMOVE 07/01/2022 IR Drain Check/Change/Remove 07/01/2022 Jamaal Jenkins, DO [facility] IR DRAIN CHECK/CHANGE/REMOVE 08/11/2022 IR Drain Check/Change/Remove 08/11/[address] [facility] IR DRAIN CHECK/CHANGE/REMOVE 08/25/2022 IR Drain Check/Change/Remove 08/25/2022 Jamaal Jenkins, DO [facility] IR DRAIN CHECK/CHANGE/REMOVE 09/10/2022 IR Drain Check/Change/Remove 09/10/[address] [facility] PRO APPLY OF HIP CASTS, TWO LEGS 08/15/2010 CAST APPLICATION, HIP SPICA, BOTH LEGS performed by BARRERA OLIVER at [facility] OR PRO I&D, POST SPINE, LUMB/SACR/LUMBOSAC N/A 05/20/2014 @I & D, OPEN, DEEP ABSCESS, LUMBAR, SACRAL, LUMBOSACRAL performed by Freddy Isbell MD at [facility] OR PRO I&D, POST SPINE, LUMB/SACR/LUMBOSAC N/A 05/26/2014 @I & D, OPEN, DEEP ABSCESS, LUMBAR, SACRAL, LUMBOSACRAL performed by Freddy Isbell MD at [facility] OR PRO IMPACT TOOTH REMOV COMP BONY N/A 06/14/2018 SURGICAL EXTRACTIONS, REMOVAL OF IMPACTED TOOTH, COMPLETELY BONY (WRVU 1.93) performed by Keith Cotton MD at [facility] PRO OSTEOTOMY FEMUR SHAFT/SUPRACONDY 08/15/2010 ??OSTEOTOMY, FEMUR SHAFT OR SUPRACONDYLAR W/O FIXATION performed by BARRERA OLIVER at [facility] OR PRO RECONSTRUC HIP SOCKET, RESEC FEM HEAD 08/15/2010 ??ACETABULOPLASTY (GIRDLESTONE), RESECTION FEMORAL HEAD, BILATERAL performed by BARRERA OLIVER [facility] MAIN OR PRO REMOVAL DEEP IMPLANT 08/15/2010 REMOVAL IMPLANT, DEEP, BRUNO performed by BARRERA OLIVER at [facility] OR PRO REMOVAL ERUPTED TOOTH WITH ELEVATION OF MUCOPERIOSTEAL FLAP N/A 06/14/2018 SURGICAL EXTRACTIONS REQUIRING ELEVATION OF MUCOPERIOSTEAL FLAP AND REMOVAL OF BONE OR SECTION OF TOOTH (WRVU 1.09) performed by Keith Cotton MD at [facility] PRO REMOVE INFUSN DEVICE/PUMP N/A 05/11/2014 REMOVAL OF SPINE INFUSION PUMP performed by Jamaal Samuel MD at [facility] OR PRO REMOVE SPINAL CANAL CATHETER N/A 05/11/2014 REMOVAL OF INTRATHECAL OR EPIDURAL CATHETER performed by Jamaal Samuel MD at [facility] OR PRO REPR, DURAL/CSF LEAK, NOT REQ LAMINECTOMY N/A 05/20/2014 @REPAIR DURAL\CSF LEAK,NOT REQUIRING LAMINECTOMY performed by Freddy Isbell MD at [facility] OR Social History Socioeconomic History [...] [Transparent Dressings] Itching and Dermatitis Please use [id number] Cyclobenzaprine Other Reaction(s): Not available Penicillins Current [...] PM EST Office [place] [address] Hollie Ambriz MD [facility] [place] [address] documented as of this encounter Visit Diagnoses Diagnosis Spinal abscess Acute osteomyelitis, other specified site documented in this encounter Care Teams Associate Professor Of Pathology Relationship Specialty Start Date End Date Lorna Bal APRN [address] [place] [address] PCP - General Family Medicine 05/27/18 documented as of this encounter
--- OUTSIDE RECORDS SUMMARY | 2023-12-07 15:21 | XMS_ITS | Encounter Summary ---
[place] [address] Care Team Providers Care Deck Steward Name Role Phone Lorna Bal APRN Primary Care Provider [phone] [phone] Encounter Details Date Type Department Care Team [...] PM EST Office Visit [place] [phone] Hollie Ambriz MD [facility] [place] [address] documented as of this encounter Visit Diagnoses Not on filedocumented in this encounter Care Teams Deck Steward Relationship Specialty Start Date End Date Lorna Bal APRN [address] [place] [address] PCP - General Family Medicine 05/27/18 documented as of this encounter
--- OUTSIDE RECORDS SUMMARY | 2023-12-07 15:21 | XMS_ITS | Encounter Summary ---
Author Organization [facility] [address] Care Team Providers Care Head Filter Press Tender Name Role Phone Lorna Bal APRN Primary Care Provider +1 [phone] Encounter Details Date Type Department Care Team (Late st Contact Info) Description 12/25/[address] [place] [phone] Sirisha Patino Social History Tobacco Use Types [...] PM EST Office [place] [address] Hollie Ambriz MD [facility] [place] [address] documented as of this encounter Visit Diagnoses Not on filedocumented in this encounter Care Teams Head Filter Press Tender Relationship Specialty Start Date End Date Lorna Bal, [place] [address] [place] [address] PCP - General Family Medicine 05/27/18 documented as of this encounter
--- OUTSIDE RECORDS SUMMARY | 2023-12-07 15:21 | XMS_ITS | Encounter Summary ---
Author Organization [facility] [place] [address] Care Team Providers Care Test Center Manager Name Role Phone Lorna Bal APRN Primary Care Provider +1 [phone] Reason for Visit * Consultation (Routine) - Authorized Specialty Diagnoses / Procedures Referred By Karlo duarte Referred To Contact Gastroenterology Diagnoses Constipation, unspecified constipation type constipation Lorna Bal APRN [address] [place] [address] [facility] [address] [place] [address] Referral ID Status Reason Start Date Expiration Date Visits Requested Visits Authorized [id number] Authorized Consult, Test & Treat PCP Updated and/or Approved 01/30/2023 01/30/2024 12 12 Encounter Details Date Type Department Care Team (Latest Contact Info) Description 06/08/2023 9:00 AM EST TH Visit (TeleHealth) [place] [address] Samantha Crystal APRN [facility] [place] [address] Constipation, unspecified constipation type Social [...] Drainage Procedures 06/25/[address] [facility] INTERVENTIONL RAD IR ALL DRAINAGE PROCEDURES 07/04/2022 IR All Drainage Procedures 07/04/[address] [facility] INTERVENTIONL RAD IR ALL DRAINAGE PROCEDURES 07/24/2022 IR All Drainage Procedures 07/24/[address] [facility] INTERVENTIONL RAD IR ALL DRAINAGE PROCEDURES 09/26/2022 IR All Drainage Procedures 09/26/2022 Jamaal Jenkins, DO [facility] INTERVENTIONL RAD IR DRAIN CHECK/CHANGE/REMOVE 07/01/2022 IR Drain Check/Change/Remove 07/01/2022 Jamaal Jenkins, DO [facility] INTERVENTIONL RAD IR DRAIN CHECK/CHANGE/REMOVE 08/11/2022 IR Drain Check/Change/Remove 08/11/[address] [facility] INTERVENTIONL RAD IR DRAIN CHECK/CHANGE/REMOVE 08/25/2022 IR Drain Check/Change/Remove 08/25/2022 Jamaal Jenkins, DO [facility] INTERVENTIONL RAD IR DRAIN CHECK/CHANGE/REMOVE 09/10/2022 IR Drain Check/Change/Remove 09/10/2022 Mich Martino MD [facility] INTERVENTIONL RAD PRO APPLY OF HIP CASTS, TWO LEGS 08/15/2010 CAST APPLICATION, HIP SPICA, BOTH LEGS performed by BARRERA OLIVER at [facility] MAIN OR PRO I&D, POST SPINE, LUMB/SACR/LUMBOSAC N/A 05/20/2014 @I & D, OPEN, DEEP ABSCESS, LUMBAR, SACRAL, LUMBOSACRAL performed by Freddy Isbell MD at [facility] MAIN OR PRO I&D, POST SPINE, LUMB/SACR/LUMBOSAC N/A 05/26/2014 @I & D, OPEN, DEEP ABSCESS, LUMBAR, SACRAL, LUMBOSACRAL performed by Freddy Isbell MD at [facility] MAIN OR PRO IMPACT TOOTH REMOV COMP BONY N/A 06/14/2018 SURGICAL EXTRACTIONS, REMOVAL OF IMPACTED TOOTH, COMPLETELY BONY (WRVU 1.93) performed by Keith Cotton MD at [facility] OSC PRO OSTEOTOMY FEMUR SHAFT/SUPRACONDY 08/15/2010 ??OSTEOTOMY, FEMUR SHAFT OR SUPRACONDYLAR W/O FIXATION performed by BARRERA OLIVER at [facility] MAIN OR PRO RECONSTRUC HIP SOCKET, RESEC FEM HEAD 08/15/2010 ??ACETABULOPLASTY (GIRDLESTONE), RESECTION FEMORAL HEAD, BILATERAL performed by BARRERA OLIVER [facility] MAIN OR PRO REMOVAL DEEP IMPLANT 08/15/2010 REMOVAL IMPLANT, DEEP, BRUNO performed by BARRERA OLIVER at [facility] MAIN OR PRO REMOVAL ERUPTED TOOTH WITH ELEVATION OF MUCOPERIOSTEAL FLAP N/A 06/14/2018 SURGICAL EXTRACTIONS REQUIRING ELEVATION OF MUCOPERIOSTEAL FLAP AND REMOVAL OF BONE OR SECTION OF TOOTH (WRVU 1.09) performed by Keith Cotton MD at [facility] OSC PRO REMOVE INFUSN DEVICE/PUMP N/A 05/11/2014 REMOVAL OF SPINE INFUSION PUMP performed by Jamaal Samuel MD at [facility] MAIN OR PRO REMOVE SPINAL CANAL CATHETER N/A 05/11/2014 REMOVAL OF INTRATHECAL OR EPIDURAL CATHETER performed by Jamaal Samuel MD at [facility] MAIN OR PRO REPR, DURAL/CSF LEAK, NOT REQ LAMINECTOMY N/A 05/20/2014 @REPAIR DURAL\CSF LEAK,NOT REQUIRING LAMINECTOMY performed by Freddy Isbell MD at [facility] MAIN OR MEDICATIONS: Current Outpatient Medications [...] [Transparent Dressings] Itching and Dermatitis Please use [id number] Cyclobenzaprine Other Reaction(s): Not available Penicillins SOCIAL [...] labs. Theyare requesting these to go to [facility] They are aware that [...] Mom requesting consent to order colonoscopy. Called [phone]. Awaiting call back for consent for colonoscopy. Ordered colonoscopy at this time and will await consent confirmation with mom prior to procedure. Total time spent on encounter today: Time spent reviewing records prior to this encounter: 10 minutes Time spent during encounter with patient including counselin minutes Time spent documenting encounter after office visit: 5 minutes Samantha Crystal, MSN, CORPORATE TREASURER, HOSPITAL FELLOW-C Section of Gastroenterology [place] [address] documented in this encounter Plan of Treatment Upcoming Encounters Date Type Department Care Team (Late st Contact Info) Description 06/02/2024 12:30 PM EST Office [place] [address] Hollie Ambriz MD [facility] [place] [address] Scheduled Orders Name Type Priority Associated Diagnoses [...] type documented in this encounter Care Teams Test Center Manager Relationship Specialty Start Date End Date Lorna Bal APRN [address] [place] [address] PCP - General Family Medicine 05/27/18 documented as of this encounter
--- OUTSIDE RECORDS SUMMARY | 2023-12-07 15:21 | XMS_ITS | Encounter Summary ---
Author Organization [facility] [place] [address] Care Team Providers Care Shipyard Supervisor Name Role Phone Lorna Bal APRN Primary Care Provider +1 [phone] Encounter Details Date Type Department Care Team (Late st Contact Info) Description 09/25/2022 Telephone [place] [phone] Jamar Dasilva MD [facility] [place] [address] Social History Tobacco Use Types Packs/Day Years [...] status. Tana saw her neurosurgeon today in [place]. He feels that her symptoms are an allergic reaction to the current abx and requests that the abx be changed. The neurosurgeon said that they need to go in and remove a screw and clean out the area around the meredith in Tana's back. They do not want to do this at [facility] as it will require a plastic surgeon to close up due to Tana's skin being compromised. Javed relays that the neurosurgeon is trying to arrange surgery in [place] where a plastic surgeon is available. The [...] went over 70 she needed to go [facility]. Should she do that? No fever and WBC is normal. #4- Can Dr. Dasilva help to schedule an appt with radiology to have the drains put back in? documented in this encounter Plan of Treatment Upcoming Encounters Date Type Department Care Team (Late st Contact Info) Description 06/02/2024 12:30 PM EST Office Visit [place] [address] Hollie Ambriz MD [facility] [place] [address] documented as of this encounter Visit Diagnoses Not on filedocumented in this encounter Care Teams Shipyard Supervisor Relationship Specialty Start Date End Date Lorna Bal APRN [address] [place] [address] PCP - General Family Medicine 05/27/18 documented as of this encounter
--- OUTSIDE RECORDS SUMMARY | 2023-12-07 15:21 | XMS_ITS | Encounter Summary ---
Author Organization [facility] [place] [place] [address] Care Team Providers Care Timber Incisor Operator Name Role Phone Lorna Bal APRN Primary Care Provider +1 [phone] Encounter Details Date Type Department Care Team (Late st Contact Info) Description 03/30/2023 Telephone [place] [phone] Halima García Social History Tobacco Use Types Packs/Day Years Used Date Smoking Tobacco: Never Smokeless Tobacco: Never Comments:NO SMOKERS IN THE H OME Alcohol Use Standard Drinks/Week Comments No 0 (1 standard drink = 0.6 oz pur e alcohol) [facility] Inpatient Questions Answer Date Recorded Does [...] 8:44 AM EST Erika - pharmacist CB: [phone] [facility] [place]- - [place], [place] - [address]. Erika from [facility] called Dr. Tipton isn't setup with [place] medicaid so the script for bactrim won't go through. The pharmacy is requesting a new script from the attending. Thanks Halima documented in this encounter Plan of Treatment Upcoming Encounters Date Type Department Care Team (Late st Contact Info) Description 06/02/2024 12:30 PM EST Office Visit [place] [address] Hollie Ambriz MD [facility] [place] [address] documented as of this encounter Visit Diagnoses Not on filedocumented in this encounter Care Teams Timber Incisor Operator Relationship Specialty Start Date End Date Lorna Bal APRN [address] [place] [address] PCP - General Family Medicine 05/27/18 documented as of this encounter
--- OUTSIDE RECORDS SUMMARY | 2023-12-07 15:21 | XMS_ITS | Encounter Summary ---
Author Organization [facility] [place] [address] Care Team Providers Care Floorperson Name Role Phone Lorna Bal APRN Primary Care Provider +1 -[phone] Encounter Details Date Type Department Care Team (Late st Contact Info) Description 04/24/2023 Telephone Infectious Disease at [facility] [place] [address] Meme Morataya Social History Tobacco Use Types [...] PM EST Office Visit [place] [address] Hollie Ambriz MD [facility] [place] [address] documented as of this encounter Visit Diagnoses Not on filedocumented in this encounter Care Teams Floorperson Relationship Specialty Start Date End Date Lorna Bal, SUPERVISOR SPEECH [address] [place] [address] PCP - General Family Medicine 05/27/18 documented as of this encounter
--- OUTSIDE RECORDS SUMMARY | 2023-12-07 15:21 | XMS_ITS | Encounter Summary ---
Author Organization [facility] [place] [address] Care Team Providers Care Roving Can Tender Name Role Phone Lorna Bal APRN Primary Care Provider +1 -[phone] Reason for Referral * Diagnostic Test (Routine) - Closed Specialty Diagnoses / Procedures Referred By Contac t Referred To Contact Radiology Diagnoses Spinal abscess Procedures IR All Drainage Procedures IR All Biopsy Procedures Jamar Dasilva MD [facility] [place] [address] [place] [address] Referral ID Status Reason Start Date Expiration Date V isits Requested Visits Authorized [id number] Closed Specialty Service Requested 09/26/2022 03/28/2024 1 1 Encounter Details Date Type Department Care Team (Late st Contact Info) Description 09/26/2022 Orders [place] [address] Jamar Dasilva MD [facility] [place] [address] Spinal abscess Social History Tobacco [...] PM EST Office [place] [address] Hollie Ambriz MD [facility] DR [place] [address] documented as of this encounter Results * [...] present throughout the procedure. Jamar Dasilva MD [facility] IR ORDERABLES * AFB culture Back (09/26/2022 12:49 PM EDT) Acid Fast Bacilli Culture No Acid Fast Bacilli isolated [facility] Acid Fast Stain No Acid Fast Bacilli seen [facility] Back 09/26/2022 12:4 9 PM EDT 09/26/2022 2:05 PM EDT Narrative Resulting Agency Comment Spec In Lab Jamar Dasilva MD MICROBIOLOGY - [facility] ORDERABLES [facility] [place] [address] documented in this encounter Visit Diagnoses Diagnosis Spinal abscess Acute osteomyelitis, other specified site Spinal abscess Acute osteomyelitis, other specified site documented in this encounter Care Teams Roving Can Tender Relationship Specialty Start Date End Date Lorna Bal APRN [address] [place] [address] PCP - General Family Medicine 05/27/18 documented as of this encounter
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
--- OUTSIDE RECORDS SUMMARY | 2023-12-07 15:21 | XMS_ITS | Encounter Summary ---
[place] [address] Care Team Providers Care Outplacement Consultant Name Role Phone Lorna Bal APRN Primary Care Provider [phone] [phone] Reason for Referral * Consultation (Urgent) - Authorized Specialty Diagnoses / Procedures Referred By Contac t Referred To Contact Infectious Diseases Diagnoses Osteomyelitis, unspecified site, unspecified type Spinal cord abscess Lorna Bal APRN [address] [place] [address] [facility] Infectious Dis [address] [place] [phone] Referral ID Status Reason Start Date Expiration Date Visits Requested Visits Authorized [id number] Authorized Consult, Test & Treat PCP Updated and/or Approved 12/23/2022 12/23/2023 6 6 Encounter Details Date Type Department Care Team (Latest Contact Info) Description 12/23/2022 Transcribe Orders eDH Incoming Referrals [phone] Lorna Bal APRN [address] [place] [address] Osteomyelitis, unspecified site, unspecified type; [...] PM EST Office [place] [address] Hollie Ambriz MD [facility] [address] [place] [address] Scheduled Referrals Name Type Priority Associated Diagnoses Order Schedule Referral to Infectious Disease and [facility] Outpatient Referral Urgent Osteomyelitis, unspecified site, unspecified type Spinal cord abscess Ordered: 12/23/2022 documented as of this encounter Visit Diagnoses Diagnosis Osteomyelitis, unspecified site, unspecified type Spinal cord abscess Acute osteomyelitis, other specified site documented in this encounter Care Teams Outplacement Consultant Relationship Specialty Start Date End Date Lorna Bal APRN [address] [place] [address] PCP - General Family Medicine 05/27/18 documented as of this encounter
--- OUTSIDE RECORDS SUMMARY | 2023-12-07 15:21 | XMS_ITS | Encounter Summary ---
[place] [address] Care Team Providers Care Greenhouse Worker Name Role Phone Lorna Bal APRN Primary Care Provider +1 [phone] Encounter Details Date Type Department Care Team (Latest Contact Info) Description 09/26/2022 Travel Social History Tobacco Use Types Packs/Day Years Used Date Smoking Tobacco: Never Smokeless Tobacco: Never Comments:NO SMOKERS IN THE H OME Alcohol Use Standard Drinks/Week Comments No 0 (1 standard drink = 0.6 oz pur e alcohol) [facility] Inpatient Questions Answer Date Recorded [...] PM EST Office Visit [place] [phone] Hollie Ambriz MD [facility] INF[place] [address] documented as of this encounter Visit Diagnoses Not on filedocumented in this encounter Care Teams Greenhouse Worker Relationship Specialty Start Date End Date Lorna Bal APRN [address] [place] [address] PCP - General Family Medicine 05/27/18 documented as of this encounter
--- OUTSIDE RECORDS SUMMARY | 2023-12-07 15:21 | XMS_ITS | Encounter Summary ---
[place] [address] Care Team Providers Care Hydrodynamicist Name Role Phone Lorna Bal APRN Primary Care Provider +1 [phone] Encounter Details Date Type Department Care Team [...] Office [place] [address] Hollie Ambriz MD [facility] [place] [address] documented as of this encounter Visit Diagnoses Not on filedocumented in this encounter Care Teams Hydrodynamicist Relationship Specialty Start Date End Date Lorna Bal APRN [address] [place] [address] PCP - General Family Medicine 05/27/18 documented as of this encounter
--- OUTSIDE RECORDS SUMMARY | 2023-12-07 15:21 | XMS_ITS | Encounter Summary ---
Author Organization [facility] Address [facility] [place] [address] Care Team Providers Care Constitutional Law Professor Name Role Phone Lorna Bal APRN Primary Care Provider +1 [phone] Encounter Details Date Type Department Care Team (Late st Contact Info) Description 09/24/2022 [place] [address] Hank Nunez PA [facility] [place] [address] Social History Tobacco Use Types Packs/Day Years [...] Patient Name: Tana Cavazos : 1995 MR#: [id number] Spoke with Anderson regarding concerns regarding overall plan for Tana. Recommended she attend her appointments in [place] in hope of guiding toward more definitive [...] PM EST Office [place] [address] Hollie Ambriz MD [facility] [place] [address] documented as of this encounter Visit Diagnoses Not on filedocumented in this encounter Care Teams Constitutional Law Professor Relationship Specialty Start Date End Date Lorna Bal APRN [address] [place] [address] PCP - General Family Medicine 05/27/18 documented as of this encounter
--- OUTSIDE RECORDS SUMMARY | 2023-12-07 15:21 | XMS_ITS | Encounter Summary ---
Author Organization [facility] [place] [address] Care Team Providers Care Senior Windows Engineer Name Role Phone Lorna Bal APRN Primary Care Provider +1 [phone] Reason for Referral * Diagnostic Test (Routine) - Closed Specialty Diagnoses / Procedures Referred By Contac t Referred To Contact Radiology Diagnoses Spinal abscess Procedures CT Lumbar Spine w Contrast Jamar Dasilva MD [facility] [place] [address] [facility] [place] [address] Referral ID Status Reason Start Date Expiration Date V isits Requested Visits Authorized [id number] Closed Specialty Service Requested 09/25/2022 03/27/2024 1 1 Reason for Visit * Diagnostic Test (Routine) - Closed Specialty Diagnoses / Procedures Referred By Contac t Referred To Contact Radiology Diagnoses Spinal abscess Procedures CT Lumbar Spine w Contrast Jamar Dasilva MD [facility] [place] [address] [facility] [place] [address] Referral ID Status Reason Start Date Expiration Date V isits Requested Visits Authorized [id number] Closed Specialty Service Requested 09/25/2022 03/27/2024 1 1 Encounter Details Date Type Department Care Team (Latest Contact Info) Description 09/26/2022 10:24 AM EDT - 09/26/2022 12:12 PM EDT Hospital [place] [address] Jamar Dasilva MD [facility] [place] [address] Spinal abscess Discharge Disposition: Home [...] Visit Infectious Disease at [facility] [place] [address] Hollie Ambriz MD [facility] [place] [address] documented as of this encounter Procedures Procedure [...] who have questions please contact the health day care supervisor that requested your imaging first. ? Narrative [...] patients who have questions please contactthe health day care supervisor that requested your imaging first. Jamar Dasilva [...] documented in this encounter Care Teams Senior Windows Engineer Relationship Specialty Start Date End Date Lorna Bal, [place] [address] [place] [address] PCP - General Family Medicine 05/27/18 documented as of this encounter
--- OUTSIDE RECORDS SUMMARY | 2023-12-07 15:21 | XMS_ITS | Encounter Summary ---
Author Organization [facility] [place] [address] Care Team Providers Care Inpatient Services Rn Name Role Phone Lorna Bal APRN Primary Care Provider +1 [phone] Encounter Details Date Type Department Care Team (Late st Contact Info) Description 06/12/2023 Telephone [place] [address] Tobi Luna Social History Tobacco Use Types [...] PM EST Office [place] [address] Hollie Ambriz MD [facility] [place] [address] documented as of this encounter Visit Diagnoses Not on filedocumented in this encounter Care Teams Inpatient Services Rn Relationship Specialty Start Date End Date Lorna Bal APRN [address] [place] [address] PCP - General Family Medicine 05/27/18 documented as of this encounter
--- OUTSIDE RECORDS SUMMARY | 2023-12-07 15:21 | XMS_ITS | Encounter Summary ---
[facility] [place] [address] Care Team Providers Care Nut Tapper Name Role Phone Lorna Bal APRN Primary Care Provider +1 [phone] Encounter Details Date Type Department Care Team (Late st Contact Info) Description 10/27/2022 Telephone [place] [address] Halima García Social History Tobacco Use Types [...] encounter Miscellaneous Notes * Telephone Encounter - Halmia García - 11/04/2022 11:56 AM EDT Called [...] PM EST Office [place] [address] Hollie Ambriz MD [facility] [place] [address] documented as of this encounter Visit Diagnoses Not on filedocumented in this encounter Care Teams Nut Tapper Relationship Specialty Start Date End Date Lorna Bal APRN [address] [place] [address] PCP - General Family Medicine 05/27/18 documented as of this encounter
--- OUTSIDE RECORDS SUMMARY | 2023-12-07 15:21 | XMS_ITS | Encounter Summary ---
Author Organization [facility] [address] Care Team Providers Care Casting Room Operator Name Role Phone Lorna Bal APRN Primary Care Provider +1 [phone] Reason for Referral * Diagnostic Test (Routine) - Closed Specialty Diagnoses / Procedures Referred By Contac t Referred To Contact Radiology Diagnoses Spinal abscess Procedures CT Lumbar Spine w Contrast Jamar Dasilva MD [facility] [place] [address] [facility] [place] [address] Referral ID Status Reason Start Date Expiration Date V isits Requested Visits Authorized [id number] Closed Specialty Service Requested 09/25/2022 03/27/2024 1 1 Encounter Details Date Type Department Care Team (Late st Contact Info) Description 09/25/2022 Orders [place] [address] Jamar Dasilva MD [facility] [place] [address] Spinal abscess Social History Tobacco Use Types Packs/Day Years Used Date Smoking Tobacco: Never Smokeless Tobacco: Never Comments:NO SMOKERS IN THE H OME Alcohol Use Standard Drinks/Week Comments No 0 (1 standard drink = 0.6 oz pur e alcohol) [facility] Inpatient Questions Answer Date Recorded Does Anyone [...] PM EST Office [place] [address] Hollie Ambriz MD [facility] [address] [place] [address] documented as of this encounter Results * [...] have questions please contact the health career guidance technician that requested your imaging first. ? Electronically signed by: Pantera Salazar MD, [facility] ([phone]), at 09/26/2022 10:59 AM Narrative 09/26/2022 10:59 [...] who have questions please contactthe health career guidance technician that requested your imaging first. Jamar Dasilva MD IMG CT ORDERABLES documented in this encounter Visit Diagnoses Diagnosis Spinal abscess Acute osteomyelitis, other specified site Spinal abscess Acute osteomyelitis, other specified site documented in this encounter Care Teams Casting Room Operator Relationship Specialty Start Date End Date Lorna Bal, REFRIGERATION BRAZER/SOLDERER [address] [place] [address] PCP - General Family Medicine 05/27/18 documented as of this encounter
--- OUTSIDE RECORDS SUMMARY | 2023-12-07 15:21 | XMS_ITS | Encounter Summary ---
Author Organization [facility] Address [facility] [place] [address] Care Team Providers Care Carburizer Name Role Phone Lorna Bal APRN Primary Care Provider +1 [phone] Encounter Details Date Type Department Care Team (Latest Contact Info) Description 07/02/2023 11:00 AM EST TH Visit (TeleHealth) [place] [address] George Tipton MD 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 Followed up with in [place]. MRI was not possible sec. To hardware. CRP/ESR was trending upwards. NSG referred her to [facility] for surgery. The patient went to [...] liquefied hematoma or abscess. Neurosurgeon recommended continuing longwall headgate operator suppressive antibiotics. Subjective: We called and talked [...] Tipton MD Infectious Diseases Fellow- [id number] Pager: [phone] 07/01/2023 5:26 PM Plan discussed with Dr. Nikolay Toledo This note was created using [employer]) voice recognition software. * Nikolay Toledo MD [...] PM EST Office [place] [address] Nikolay Toledo MD [facility] [place] [address] documented as of this encounter Visit Diagnoses Diagnosis Spinal abscess Acute osteomyelitis, other specified site buttermaker helper 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 Encounter for long-term (current) use of antibiotics documented in this encounter Care Teams Carburizer Relationship Specialty Start Date End Date Lorna Bal APRN [address] [place] [address] PCP - General Family Medicine 05/27/18 documented as of this encounter
--- OUTSIDE RECORDS SUMMARY | 2023-12-07 15:21 | XMS_ITS | Encounter Summary ---
Author Organization [facility] [place] [address] Care Team Providers Care Pony Rougher Name Role Phone Lorna Bal APRN Primary Care Provider [phone] -[phone] Reason for Referral * Diagnostic Test (Routine) - Closed Specialty Diagnoses / Procedures Referred By Contac t Referred To Contact Radiology Diagnoses Spinal abscess Procedures CT Lumbar Spine w Contrast George Tipton MD [facility] [place] [address] [facility] [place] [address] Referral ID Status Reason Start Date Expiration Date V isits Requested Visits Authorized [id number] Closed Specialty Service Requested 04/15/2023 10/14/2024 1 1 Encounter Details Date Type Department Care Team (Late st Contact Info) Description 04/15/2023 Notes [place] [address] George Tipton MD [facility] [place] [address] Social History Tobacco Use Types [...] PM EST Office Visit [place] [address] oHllie Ambriz MD [facility] [place] [address] documented as of this encounter Results * [...] have questions please contact the health care technician that requested your imaging first. ? Electronically signed by: Bobo Keane MD, [facility] ([phone]), at 04/17/2023 10:53 AM Narrative 04/17/2023 10:53 [...] who have questions please contactthe health care technician that requested your imaging first. Electronically signed by: Bobo Keane MD, [facility]([phone]), at 04/17/2023 10:53 AM Keri Trevino MD IMG CT ORDERABLES documented in this encounter Visit Diagnoses Diagnosis Spinal abscess- Primary Acute osteomyelitis, other specified site Spinal abscess Acute osteomyelitis, other specified site documented in this encounter Care Teams Pony Rougher Relationship Specialty Start Date End Date Lorna Bal APRN [address] [place] [address] PCP - General Family Medicine 05/27/18 documented as of this encounter
--- OUTSIDE RECORDS SUMMARY | 2023-12-07 15:21 | XMS_ITS | Encounter Summary ---
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, other site Procedures CT Thoracic Spine wo Contrast (Generic) Lorna Bal APRN [address] [place] [address] [facility] [place] [address] Referral ID Status Reason Start Date Expiration Date V isits Requested Visits Authorized [id number] Closed Specialty Service Requested 12/25/2022 06/24/2024 1 1 * Diagnostic Test (Routine) - Closed Specialty Diagnoses / Procedures Referred By Contac t Referred To Contact Radiology Diagnoses Cerebral palsy, unspecified type 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, other site Procedures CT Cervical Spine wo Contrast Lorna Bal APRN [address] [place] [address] [facility] [place] [address] Referral ID Status Reason Start Date Expiration Date V isits Requested Visits Authorized [id number] Closed Specialty Service Requested 12/25/2022 06/24/2024 1 1 Reason for Visit * Diagnostic Test (Routine) - Closed Specialty Diagnoses / Procedures Referred By Contmonica t Referred To Contact Radiology Diagnoses Cerebral palsy, unspecified type 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, other site Procedures CT Cervical Spine wo Contrast Lorna Bal APRN [address] [place] [address] [facility] [place] [address] Referral ID Status Reason Start Date Expiration Date V isits Requested Visits Authorized [id number] Closed Specialty Service Requested 12/25/2022 06/24/2024 1 1 Encounter Details Date Type Department Care Team (Latest Contact Info) Description 12/31/2022 10:50 AM EDT - 12/31/2022 11:59 PM EDT Hospital [place] [address] Lorna Bal APRN [address] [place], [place] [address] Cerebral palsy, unspecified type; Congenital deformity of [...] PM EST Office [place] [address] Hollie Ambriz MD [facility] [place] [address] documented as of this encounter Procedures Procedure [...] have questions please contact the health home health care provider that requested your imaging first. ? Electronically signed by: Svitlana Mcbride [facility] ([phone]), at 12/31/2022 4:00 PM Narrative 12/31/2022 4:00 [...] who have questions please contactthe health home health care provider that requested your imaging first. Electronically signed by: Svitlana Mcbride [facility]([phone]), at 12/31/2022 4:00 PM Lorna Bal APRN IMG CT ORDERABLES * [...] have questions please contact the health home health care provider that requested your imaging first. ? Electronically signed by: Svitlana Mcbride [facility] ([phone]), at 12/31/2022 4:00 PM Narrative 12/31/2022 4:00 [...] who have questions please contactthe health home health care provider that requested your imaging first. 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
--- OUTSIDE RECORDS SUMMARY | 2023-12-07 15:21 | XMS_ITS | Encounter Summary ---
Author Organization [facility] [place] [address] Care Team Providers Care Trestle Builder Name Role Phone Lorna Bal APRN Primary Care Provider +1 -[phone] Encounter Details Date Type Department Care Team (Late st Contact Info) Description 09/26/2022 Telephone [place] [address] Valentina Stanton Social History Tobacco Use Types [...] caregiver Fernanda once we know at number [phone]. This was okay per pt Mom. documented in this encounter Plan of Treatment Upcoming Encounters Date Type Department Care Team (Late st Contact Info) Description 06/02/2024 12:30 PM EST Office Visit [place] [address] Hollie Ambriz MD [facility] [place] [address] documented as of this encounter Visit Diagnoses Not on filedocumented in this encounter Care Teams Trestle Builder Relationship Specialty Start Date End Date Lorna Bal APRN [address] [place] [address] PCP - General Family Medicine 05/27/18 documented as of this encounter
--- OUTSIDE RECORDS SUMMARY | 2023-12-07 15:21 | XMS_ITS | Encounter Summary ---
[place] [address] Care Team Providers Care Broomcorn Seeder Name Role Phone Lorna Bal APRN Primary Care Provider +1 -[phone] Reason for Referral * Consultation (Routine) - Authorized Specialty Diagnoses / Procedures Referred By Contmonica t Referred To Contact Gastroenterology Diagnoses Constipation, unspecified constipation type constipation Lorna Bal APRN [address] [place] [address] [facility] [address] [place] [phone] Referral ID Status Reason Start Date Expiration Date Visits Requested Visits Authorized [id number] Authorized Consult, Test & Treat PCP Updated and/or Approved 01/30/2023 01/30/2024 12 12 Encounter Details Date Type Department Care Team (Latest Contact Info) Description 01/30/2023 Transcribe Orders eDH Incoming Referrals [phone] Lorna Bal APRN [address] [place], [place] [address] Constipation, unspecified constipation type Social History Tobacco [...] PM EST Office [place] [address] Hollie Ambriz MD [facility] [place] [address] Scheduled Referrals Name Type Priority Associated Diagnoses Order Schedule Referral to Gastroenterology Outpatient Referral Routine Constipation, unspecified constipation type Ordered: 01/30/2023 documented as of this encounter Visit Diagnoses Diagnosis Constipation, unspecified constipation type documented in this encounter Care Teams Broomcorn Seeder Relationship Specialty Start Date End Date Lorna Bal APRN [address] [place] [address] PCP - General Family Medicine 05/27/18 documented as of this encounter
--- OUTSIDE RECORDS SUMMARY | 2023-12-07 15:21 | XMS_ITS | Encounter Summary ---
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 Lorna Bal APRN [address] [place] [address] [facility] [address] [place] [phone] Referral ID Status Reason Start Date Expiration Date Visits Requested Visits Authorized [id number] Authorized Consult, Test & Treat PCP Updated and/or Approved 08/03/2023 08/02/2024 6 6 Encounter Details Date Type Department Care Team (Latest Contact Info) Description 08/03/2023 Transcribe Orders eDH Incoming Referrals [phone] Lorna Bal APRN [address] [place] [address] Contracture of joint of hand, unspecified laterality [...] PM EST Office [place] [address] Hollie Ambriz MD [facility] [place] [address] Scheduled Referrals Name Type Priority Associated Diagnoses Orde r Schedule Referral to Orthopaedics Outpatient Referral Routine Contracture of joint of hand, unspecified laterality Ordered: 08/03/2023 documented as of this encounter Visit Diagnoses Diagnosis Contracture of joint of hand, unspecified laterality documented in this encounter Care Teams Tourist Escort Relationship Specialty Start Date End Date Lorna Bal APRN [address] [place] [address] PCP - General Family Medicine 05/27/18 documented as of this encounter
--- OUTSIDE RECORDS SUMMARY | 2023-12-07 15:21 | XMS_ITS | Encounter Summary ---
[place] [address] Care Team Providers Care Vascular Manager Name Role Phone Lorna Bal APRN Primary Care Provider +1 -[phone] Encounter Details Date Type Department Care Team [...] PM EST Office [place] [address] Hollie Ambriz MD [facility] [place] [address] documented as of this encounter Visit Diagnoses Not on filedocumented in this encounter Care Teams Vascular Manager Relationship Specialty Start Date End Date Lorna Bal APRN [address] [place] [address] PCP - General Family Medicine 05/27/18 documented as of this encounter
--- OUTSIDE RECORDS SUMMARY | 2023-12-07 15:21 | XMS_ITS | Encounter Summary ---
Author Organization [facility] [place] [address] Care Team Providers Care Fourdrinier Operator Name Role Phone Lorna Bal APRN Primary Care Provider +1 -[phone] Encounter Details Date Type Department Care Team (Late st Contact Info) Description 06/17/2023 Telephone [place] [address] Tobi Luna Social History Tobacco Use Types [...] Luna - 06/17/2023 10:02 AM EST Tana Cvaazos [id number] Diagnosis/Indication: Chronic constipation and anemia Please review [...] your procedure. Who will likely be your cdl company flatbed driver for the procedure? *Please Verify the [...] PM EST Office Visit Infectious [place] [address] Hollie Ambriz MD [facility] [place] [address] documented as of this encounter Visit Diagnoses Not on filedocumented in this encounter Care Teams Fourdrinier Operator Relationship Specialty Start Date End Date Lorna Bal APRN [address] [place] [address] PCP - General Family Medicine 05/27/18 documented as of this encounter
--- OUTSIDE RECORDS SUMMARY | 2023-12-07 15:21 | XMS_ITS | Encounter Summary ---
Author Organization [facility] [place] [address] Care Team Providers Care Brick Siding Applicator Name Role Phone Lorna Bal APRN Primary Care Provider [phone] [phone] Encounter Details Date Type Department Care Team (Latest Contact Info) Description 03/27/2023 2:54 PM EST - 03/27/2023 11:59 PM EST Hospital En[place] [address] [place] [address] Spinal abscess Discharge Disposition: Home Social History Tobacco Use Types Packs/Day Years Used Date Smoking Tobacco: Never Smokeless Tobacco: Never Comments:NO SMOKERS IN THE H OME Alcohol Use Standard Drinks/Week Comments No 0 (1 standard drink = 0.6 oz pur e alcohol) [facility] Inpatient Questions Answer Date Recorded Does [...] PM EST Office [place] [phone] Hollie Ambriz MD [facility] [place] [address] documented as of this encounter Procedures Procedure [...] PM Electronically signed by: Curt Dozier MD, [facility] ([phone]), at 03/27/2023 3:31 PM Thank you for letting us participate in the care of this patient. If you are a health care provider and have any questions regarding this report, please contact the number above. For patients who have questions, please contact the health lawn care technician that requested your imaging first. ? Curt Dozier, Staff Physician Electronically Signed Final Report ?? 03/27/2023 03:36 pm Narrative 03/27/2023 3:37 PM EST Abdominal ? (Signed Final 03/27/2023 03:36 pm) PATIENT INFO: ID #: ? [id number] ?: ??[birth year] (27 yrs)(F) Name: ? TANA SHELTON ?Visit Date: 03/27/2023 03:21 pm PERFORMED BY: Attending: ?Jacoby GONZALES MD, Curt Langston Performed By: ? Shelby Gardner RDMS Referred By: ?GABO BANDA Location: ? [place] [facility] Protocol - Abdominal ?94411 Limited Survey Single Organ or Quadrant - [id number] INDICATIONS: Transaminitis ------ LIVER: ------ Right Lobe [...] 03/27/2023 03:36 pm) PATIENT INFO: ID #: [id number] : [birth year] (27 yrs)(F) Name: TANA SHELTON Visit Date: 03/27/2023 03:21 pm PERFORMED BY: Attending: Jacoby GONZALES MD, Arthur L. Performed By: Shelby Gardner RDMS Referred By: GABO BANDA Location: [place] [facility] Hepat[facility] Protocol - Abdominal 43756 Limited Survey Single Organ or Quadrant - [id number] INDICATIONS: Transaminitis ------ LIVER: ------ Right Lobe [...] who have questions, please contact the health lawn care technician that requested your imaging first. Curt Dozier, Staff Physician Electronically Signed Final Report 03/27/2023 03:36 pm Gabo Banda [facility] ORDERABL ES documented in this encounter Visit Diagnoses Diagnosis Spinal abscess Acute osteomyelitis, other specified site documented in this encounter Care Teams Brick Siding Applicator Relationship Specialty Start Date End Date Lorna Bal APRN [address] [place] [address] PCP - General Family Medicine 05/27/18 documented as of this encounter
--- OUTSIDE RECORDS SUMMARY | 2023-12-07 15:21 | XMS_ITS | Encounter Summary ---
[facility] [place] [address] Care Team Providers Care Mainframe Programmer Analyst Name Role Phone Lorna Bal APRN Primary Care Provider [phone] [phone] Encounter Details Date Type Department Care Team (Late st Contact Info) Description 09/24/2022 Telephone [place] [phone] Valentina Stanton Social History Tobacco Use Types [...] PM EST Office [place] [address] Hollie Ambriz MD [facility] [address] [place] [address] documented as of this encounter Visit Diagnoses Not on filedocumented in this encounter Care Teams Mainframe Programmer Analyst Relationship Specialty Start Date End Date Lorna Bal, AUTOMOBILE CLUB TRAVEL COUNSELOR [address] [place] [address] PCP - General Family Medicine 05/27/18 documented as of this encounter
--- OUTSIDE RECORDS SUMMARY | 2023-12-07 15:21 | XMS_ITS | Encounter Summary ---
Author Organization [facility] Address [facility] [place] [address] Care Team Providers Care Middle School Sports Coach Name Role Phone Lorna Bal APRN Primary Care Provider +1 -[phone] Encounter Details Date Type Department Care Team (Late st Contact Info) Description 04/29/2023 [place] [phone] George Tipton MD [facility] [place] [address] Social History Tobacco Use Types Packs/Day Years [...] from 04/[address] Augustin(Neurosurgeon, [facility]) and talked to medical records secretary. According to her the surgeon reviewed the [...] PM EST Office [place] [address] Hollie Ambriz MD [facility] [place] [address] documented as of this encounter Visit Diagnoses Not on filedocumented in this encounter Care Teams Middle School Sports Coach Relationship Specialty Start Date End Date Lorna Bal APRN [address] [place] [address] PCP - General Family Medicine 05/27/18 documented as of this encounter
--- OUTSIDE RECORDS SUMMARY | 2023-12-07 15:21 | XMS_ITS | Encounter Summary ---
[place] [address] Care Team Providers Care Manager Imaging Name Role Phone Lorna Bal APRN Primary Care Provider +1 [phone] Encounter Details Date Type Department Care Team (Latest Contact Info) Description 01/29/2023 Travel Social History Tobacco Use Types Packs/Day Years Used Date Smoking Tobacco: Never Smokeless Tobacco: Never Comments:NO SMOKERS IN THE H OME Alcohol Use Standard Drinks/Week Comments No 0 (1 standard drink = 0.6 oz pur e alcohol) [facility] Inpatient Questions Answer Date Recorded [...] PM EST Office [place] [phone] Hollie Ambriz MD [facility] [place] [address] documented as of this encounter Visit Diagnoses Not on filedocumented in this encounter Care Teams Manager Imaging Relationship Specialty Start Date End Date Lorna Bal APRN [address] [place] [address] PCP - General Family Medicine 05/27/18 documented as of this encounter
--- OUTSIDE RECORDS SUMMARY | 2023-12-07 15:21 | XMS_ITS | Encounter Summary ---
Author Organization [facility] Address [facility] [place] [address] Care Team Providers Care Firer Watertender Name Role Phone Lorna Bal APRN Primary Care Provider [phone] [phone] Reason for Visit * Consultation (Urgent) - Authorized Specialty Diagnoses / Procedures Referred By Contmonica t Referred To Contact Infectious Diseases Diagnoses Osteomyelitis, unspecified site, unspecified type Spinal cord abscess Lorna Bal APRN [address] [place] [address] [facility] Infectious Dis [address] [place] [phone] Referral ID Status Reason Start Date Expiration Date Visits Requested Visits Authorized [id number] Authorized Consult, Test & Treat PCP Updated and/or Approved 12/23/2022 12/23/2023 6 6 Encounter Details Date Type Department Care Team (Late st Contact Info) Description 01/29/2023 9:30 AM EDT Office [place] [address] George Tipton MD [facility] CR[place]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 Followed up with in [place]. MRI was not possible sec. To hardware. CRP/ESR was trending upwards. NSG referred her to [facility] for surgery and patient is scheduled for a procedure on 02/11/23. Patient presents to ID clinic to reestablish care in anticipation that she will need antibiotics after her surgery since she will have new hardware in setting of chronic infection. Patient is accompanied by 2 caregivers. According to the caregivers patient lives in a house in [place] with another roommate. They have been taking [...] W/O FIXATION performed by BARRERA OLIVER at [facility] MAIN OR PRO RECONSTRUC HIP SOCKET, RESEC FEM HEAD 08/15/2010 ??ACETABULOPLASTY (GIRDLESTONE), RESECTION FEMORAL HEAD, BILATERAL performed by BARRERA OLIVER [facility] MAIN OR PRO REMOVAL DEEP IMPLANT 08/15/2010 [...] MD at [facility] MAIN OR Allergies: Allergies Allergen Reactions Fluoxetine Other (See Comments) HIVES, HEART RACES Tegaderm [Transparent Dressings] Itching and Dermatitis Please use [id number] Penicillins Immunization History: Immunization History Administered Date(s) Administered Influenza Vaccine (Novel) [id number], Injectable 02/25/2009 Influenza Vaccine w/Preservative, Split 04/25/2011 [...] Patient is being evaluated by neurosurgery in [facility] and is scheduled to undergo revision lumbar interbody fusion. We are evaluating the patient in anticipation that she will need antibiotics postprocedure. After discussing with the caregivers we decided to hold Bactrim as it will increase the yield of intraoperative cultures. Once surgery is performed in [facility] patient will need ID follow-up inpatient and then her care can be transitioned over to our clinic since it is closer to [place]. At this time Bactrim will be held [...] Dr. Nikolay Tipton MD Infectious Diseases Fellow-PGY5 [facility] Pager: [phone] 01/28/2023 10:38 AM * Nikolay Toledo MD [...] later this month at a hospital in [place]. 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
--- OUTSIDE RECORDS SUMMARY | 2023-12-07 15:21 | XMS_ITS | Encounter Summary ---
Author Organization [facility] Address [facility] [place] [address] Care Team Providers Care Nurse Unit Manager Name Role Phone Lorna Bal APRN Primary Care Provider [phone] [phone] Reason for Visit * Reason Comments Follow-up Encounter Details Date Type Department Care Team (Late st Contact Info) Description 03/26/2023 10:00 AM EST Office [place] [address] [facility] [place] [address] 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 Dx) Social History Tobacco [...] remained on bactrim. Followed up with in [place]. MRI was not possible sec. To hardware. CRP/ESR was trending upwards. NSG referred her to [facility] for surgery. The patient went to [...] Tipton MD Infectious Diseases Fellow- PGY5 Pager: [phone] 03/25/2023 4:00 PM Plan discussed with Dr. Gabo Trevino This note was created using [employer]) voice recognition software. I have seen the [...] 1-2 weeks from initiation. Gabo Trevino MD [facility] Infectious Disease * Olinda Barahona RN - [...] 1-2 weeks from initiation. Gabo Trevino MD [facility] Infectious Disease documented in this encounter Plan of Treatment Upcoming Encounters Date Type Department Care Team (Late st Contact Info) Description 06/02/2024 12:30 PM EST [place] [address] [facility] [place] [address] Scheduled Orders Name Type Priority Associated Diagnoses [...] PM EST) C-Reactive Protein 47.2(H) <=4.9 mg/L [facility] Blood 04/16/2023 4:20 PM EST 04/16/2023 4:28 PM EST Narrative Resulting Agency Comment Spec In Lab Gabo Trevino MD CHEMISTRY ORDERABLE S [facility] [place] [address] * (ABNORMAL) Comprehensive metabolic panel (non-fasting) (04/16/2023 4:20 PM EST) Glucose 79 65 - 199 mg/dL [facility] Comment:Diabetes: >=200 mg/d L plus symptoms Blood Urea Nitrogen 10 8 - 18 mg/dL [facility] Creatinine 0.49(L) 0.70 - 1.20 mg/dL [facility] Sodium 137 135 - 145 mmol/L [facility] Potassium 3.8 3.5 - 5.0 mmol/L [facility] Comment: Please note: ??Patients with WBC >100,000 may have falsely elevated Potassium levels. ??For accurate Potassium quantification in these patients send serum separator tube (gold top) for subsequent determinations. ??Contact the Clinical Chemistry Laboratory if there are any questions. Chloride 99 98 - 107 mmol/L [facility] Carbon Dioxide 27 22 - 31 mmol/L [facility] Anion Gap 11 5 - 15 mmol/L [facility] Calcium 9.4 8.5 - 10.5 mg/dL [facility] Protein, Total 7.9 6.1 - 8.0 g/dL [facility] Albumin 4.2 3.2 - 5.2 g/dL [facility] Aspartate Aminotransferase 15 0 - 30 unit/L [facility] Alanine Aminotransferase 40(H) 0 - 30 unit/L [facility] Alkaline Phosphatase 320(H) 35 - 105 unit/L [facility] Bilirubin, Total <0.2(L) 0.2 - 1.3 mg/dL [facility] Est Glomerular Filtration Rate 131 >=60 mL/min/1. 73 m?? [facility] Comment: This patient's estimated GFR was [...] Lab Gabo Trevino MD [place] [address] * US Abdomen Limited Hepatology Protocol (03/27/2023 [...] PM Electronically signed by: Curt Dozier MD, [facility] ([phone]), at 03/27/2023 3:31 PM Thank you for letting us participate in the care of this patient. If you are a health care provider and have any questions regarding this report, please contact the number above. For patients who have questions, please contact the health child care coordinator that requested your imaging first. ? Curt Dozier, Staff Physician Electronically Signed Final Report ?? 03/27/2023 03:36 pm Narrative 03/27/2023 3:37 PM EST Abdominal ? (Signed Final 03/27/2023 03:36 pm) PATIENT INFO: ID #: ? [id number] ?: ??[birth year] (27 yrs)(F) Name: ? TANA SHELTON ?Visit Date: 03/27/2023 03:21 pm PERFORMED BY: Attending: ?Jacoby GONZALES MD, Curt Langston Performed By: ? Shelby Gardner RDMS Referred By: ?GABO TREVINO Location: ? [place] SERVICE(S) PROVIDED: [facility] - Hepatology Protocol - Abdominal ?[id number] Limited Survey Single Organ or Quadrant - [id number] INDICATIONS: Transaminitis ------ LIVER: ------ Right Lobe [...] 03/27/2023 03:36 pm) PATIENT INFO: ID #: [id number] : [birth year] (27 yrs)(F) Name: TANA SHELTON Visit Date: 03/27/2023 03:21 pm PERFORMED BY: Attending: Jacoby GONZALES MD, Arthur L. Performed By: Shelby Gardner RDMS Referred By: GABO TREVINO Location: [place] SERVICE(S) PROVIDED: [facility] - Hepatology Protocol - Abdominal 03641 Limited Survey Single Organ or Quadrant - [id number] INDICATIONS: Transaminitis ------ LIVER: ------ Right Lobe [...] PM Electronically signed by: Curt Dozier MD, [facility] ([phone]), at 03/27/2023 3:31 PM Thank you for letting us participate in the care of this patient. If you are a health care provider and have any questions regarding this report, please contact the number above. For patients who have questions, please contact the health child care coordinator that requested your imaging first. Curt Dozier, Staff Physician Electronically Signed Final Report 03/27/2023 03:36 pm Gabo Trevino MD IMG US GEN ORDERABL ES * Scan, Peripheral Blood (03/26/2023 11:06 AM EST) Pathologist [facility] Plat estimate Normal [facility] RBC Morphology Abnormal [facility] Hypochromia Slight [facility] Stomatocytes 1-5 /HPF [facility] Stippled RBC Present >1/HPF [facility] Blood 03/26/2023 11:0 6 AM EST 03/26/2023 11:21 AM EST Narrative Resulting Agency Comment Spec In Lab George Tipton MD HEMATOLOGY ORDERABLE S [facility] [address] * Differential, Automated (03/26/2023 11:06 AM EST) Neutrophil % 62.0 % [facility] Neutrophil Absolute 3.69 1.70 - 6.10 x10(3)/[facility] Lymph % 27.7 % [facility] Lymphocytes Abs 1.6 0.9 - 3.2 x10(3)/[facility] Monocyte % 7.7 % [facility] Monocyte Abs 0.5 0.3 - 0.9 x10(3)/[facility] Eos % 1.8 % [facility] Eosinophils Abs 0.1 0.0 - 0.4 x10(3)/[facility] Basophil % 0.5 % [facility] Baso Absolute 0.0 0.0 - 0.1 x10(3)/[facility] Immature Gran % 0.30 % [facility] Comment: Immature granulocytes(IG's)percentage and absolute count will include metamyelocytes, myelocytes, and promyelocytes. Blood smears from CBCs yielding IG's will be scanned manually for concordance. If this scan disagrees with the automated IG or if promyelocytes are noted, a manual differential will be performed. Immature Gran Absolute 0.02 0.00 - 0.04 x10(3)/[facility] Blood 03/26/2023 11:0 6 AM EST 03/26/2023 11:21 AM EST Narrative Resulting Agency Comment Spec In Lab George Tipton MD HEMATOLOGY ORDERABLE S Performing Organization Address City/State/[facility] Co de Phone Number [facility] [address] * (ABNORMAL) Hemogram (03/26/2023 11:06 AM EST) White Blood Cell 6.0 4.0 - 9.5 x10(3)/mc L [facility] Red Blood Cell 3.07(L) 4.00 - 5.21 x10(6)/mc L [facility] Hemoglobin 8.9(L) 11.7 - 15.5 g/dL [facility] Hematocrit 27.5(L) 35.7 - 45.8 % [facility] Mean Cell Volume 89.6 82.6 - 94.4 fL [facility] Mean Cell Hemoglobin 29.0 27.1 - 32.0 pg [facility] Mean Cell Hemoglobin Concentration 32.4 31.7 - 35.0 g/dL [facility] Platelet 355 145 - 357 x10(3)/mc L [facility] RDW Standard Deviation 49.0(H) 37.0 - 46.0 fL [facility] RDW coefficient of variation 15.0(H) 11.5 - 14.1 % [facility] Mean Platelet Volume 9.1 7.6 - 12.9 fL [facility] NRBC% auto 0.0 % [facility] NRBC Absolute 0.000 0.000 - 0.000 x10(3)/mc L [facility] Blood 03/26/2023 11:0 6 AM EST 03/26/2023 11:21 AM EST Narrative Resulting Agency Comment Spec In Lab George Tipton MD HEMATOLOGY ORDERABLE S Performing Organization Address City/State/[facility] Co de Phone Number [facility] [place] [address] * (ABNORMAL) Comprehensive metabolic panel (non-fasting) (03/26/2023 11:06 AM EST) Glucose 81 65 - 199 mg/dL [facility] Comment:Diabetes: >=200 mg/d L plus symptoms Blood Urea Nitrogen 19(H) 8 - 18 mg/dL [facility] Creatinine 0.27(L) 0.70 - 1.20 mg/dL [facility] Sodium 140 135 - 145 mmol/L [facility] Potassium 4.3 3.5 - 5.0 mmol/L [facility] Comment: Please note: ??Patients with WBC >100,000 may have falsely elevated Potassium levels. ??For accurate Potassium quantification in these patients send serum separator tube (gold top) for subsequent determinations. ??Contact the Clinical Chemistry Laboratory if there are any questions. Chloride 104 98 - 107 mmol/L [facility] Carbon Dioxide 23 22 - 31 mmol/L [facility] Anion Gap 13 5 - 15 mmol/L [facility] Calcium 9.8 8.5 - 10.5 mg/dL [facility] Protein, Total 7.7 6.1 - 8.0 g/dL [facility] Albumin 4.3 3.2 - 5.2 g/dL [facility] Aspartate Aminotransferase 45(H) 0 - 30 unit/L [facility] Alanine Aminotransferase 101(H) 0 - 30 unit/L [facility] Alkaline Phosphatase 378(H) 35 - 105 unit/L [facility] Bilirubin, Total <0.2(L) 0.2 - 1.3 mg/dL [facility] Est Glomerular Filtration Rate 151 >=60 mL/min/1. 73 m?? [facility] Comment: This patient's estimated GFR was [...] ORDERABLE S Performing Organization Address City/[facility]/ZIP Co de Phone Number [facility] [place] [address] * (ABNORMAL) Sedimentation rate (03/26/2023 11:06 AM EST) Sedimentation Rate Automated 69(H) 2 - 37 mm/hr [facility] Comment: Effective April 06, 2019 new capillary photometric technology has resulted in a change in reference ranges. It is recommended that each ESR result be reviewed with its own age appropriate reference range. Blood 03/26/2023 11:0 6 AM EST 03/26/2023 11:21 AM EST Narrative Resulting Agency Comment Spec In Lab Gabo Trevino MD HEMATOLOGY ORDERABL ES Performing Organization Address City/[facility]/ZIP Co de Phone Number [facility] [place] [address] * (ABNORMAL) CRP, acute inflammation (03/26/2023 11:06 AM EST) C-Reactive Protein 86.3(H) <=4.9 mg/L [facility] Blood 03/26/2023 11:0 6 AM EST 03/26/2023 11:21 AM EST Narrative Resulting Agency Comment Spec In Lab Gabo Trevino MD CHEMISTRY ORDERABLE S Performing Organization Address City/State/[facility] Co de Phone Number [facility] [place] [address] documented in this encounter Visit Diagnoses Diagnosis Spinal abscess- Primary Acute osteomyelitis, other specified site Spinal abscess Acute osteomyelitis, other specified site documented in this encounter Care Teams Nurse Unit Manager Relationship Specialty Start Date End Date Lorna Bal APRN [address] [place] [address] PCP - General Family Medicine 05/27/18 documented as of this encounter
--- OUTSIDE RECORDS SUMMARY | 2023-12-07 15:21 | XMS_ITS | Encounter Summary ---
Author Organization [facility] [place] [address] Care Team Providers Care Instructional Supervisor Name Role Phone Lorna Bal APRN Primary Care Provider +1 [phone] Encounter Details Date Type Department Care Team (Late st Contact Info) Description 09/25/2022 Telephone [place] [phone] Valentina Stanton Social History Tobacco Use Types [...] PM EST Office Visit Infectious [place] [address] Hollie Ambriz MD [facility] [place] [address] documented as of this encounter Visit Diagnoses Not on filedocumented in this encounter Care Teams Instructional Supervisor Relationship Specialty Start Date End Date Lorna Bal, CROP SUPERVISOR [address] [place] [address] PCP - General Family Medicine 05/27/18 documented as of this encounter
--- OUTSIDE RECORDS SUMMARY | 2023-12-07 15:21 | XMS_ITS | Encounter Summary ---
Author Organization [facility] [place] [address] Care Team Providers Care Corporate Development Intern Name Role Phone Lorna Bal APRN Primary Care Provider +1 [phone] Encounter Details Date Type Department Care Team (Late st Contact Info) Description 06/16/2023 Telephone [place] [phone] Martha Kennedy Social History Tobacco Use Types [...] PM EST Office Visit Infectious [place] [address] Hollie Ambriz MD [facility] [place] [address] documented as of this encounter Visit Diagnoses Not on filedocumented in this encounter Care Teams Corporate Development Intern Relationship Specialty Start Date End Date Lorna Bal APRN [address] [place] [address] PCP - General Family Medicine 05/27/18 documented as of this encounter
--- OUTSIDE RECORDS SUMMARY | 2023-12-07 15:21 | XMS_ITS | Encounter Summary ---
[place] [address] Care Team Providers Care Warp Hanger Name Role Phone Lorna Bal APRN Primary Care Provider +1 [phone] Encounter Details Date Type Department Care Team (Latest Contact Info) Description 04/16/2023 4:05 PM EST Laboratory Appointment Lab [address] [place] [phone] Spinal abscess Social History Tobacco Use Types [...] PM EST Office Visit [place]ious [place] [phone] Hollie Ambriz MD [facility] [address] INFECTIOUS DISEASE [place] [id number] documented as of this encounter Procedures Procedure Name Priority Date/Time Associated Diagnosis Comments CRP, ACUTE INFLAMMATION Routine 04/16/2023 4:20 PM EST Spinal abscess BILIRUBIN, DIRECT Routine 04/16/2023 4:2 0 PM EST COMPREHENSIVE METABOLIC PANEL Routine 04/16/2023 4:20 PM EST Spinal abscess documented in this encounter Results * Bilirubin, Direct (04/16/2023 4:20 PM EST) Bilirubin, Direct <0.1 0.0 - 0.3 mg/dL [facility] Blood 04/16/2023 4:20 PM EST 04/16/2023 4:28 PM EST Narrative Resulting Agency Comment Spec In Lab George Tipton MD CHEMISTRY ORDERABLES [facility] [place] [address] * (ABNORMAL) Comprehensive metabolic panel (non-fasting) (04/16/2023 4:20 PM EST) Glucose 79 65 - 199 mg/dL [facility] Comment:Diabetes: >=200 mg/d L plus symptoms Blood Urea Nitrogen 10 8 - 18 mg/dL [facility] Creatinine 0.49(L) 0.70 - 1.20 mg/dL [facility] Sodium 137 135 - 145 mmol/L [facility] Potassium 3.8 3.5 - 5.0 mmol/L [facility] Comment: Please note: ??Patients with WBC >100,000 may have falsely elevated Potassium levels. ??For accurate Potassium quantification in these patients send serum separator tube (gold top) for subsequent determinations. ??Contact the Clinical Chemistry Laboratory if there are any questions. Chloride 99 98 - 107 mmol/L [facility] Carbon Dioxide 27 22 - 31 mmol/L [facility] Anion Gap 11 5 - 15 mmol/L [facility] Calcium 9.4 8.5 - 10.5 mg/dL [facility] Protein, Total 7.9 6.1 - 8.0 g/dL [facility] Albumin 4.2 3.2 - 5.2 g/dL [facility] Aspartate Aminotransferase 15 0 - 30 unit/L [facility] Alanine Aminotransferase 40(H) 0 - 30 unit/L [facility] Alkaline Phosphatase 320(H) 35 - 105 unit/L [facility] Bilirubin, Total <0.2(L) 0.2 - 1.3 mg/dL [facility] Est Glomerular Filtration Rate 131 >=60 mL/min/1. 73 m?? [facility] Comment: This patient's estimated GFR was [...] Lab Keri Trevino MD CHEMISTRY ORDERABLE S [facility] [place] [address] * (ABNORMAL) CRP, acute inflammation (04/16/2023 4:20 PM EST) C-Reactive Protein 47.2(H) <=4.9 mg/L [facility] Blood 04/16/2023 4:20 PM EST 04/16/2023 4:28 PM EST Narrative Resulting Agency Comment Spec In Lab Keri Trevino MD CHEMISTRY ORDERABLE S [facility] [place] [address] documented in this encounter Visit Diagnoses Diagnosis Spinal abscess Acute osteomyelitis, other specified site documented in this encounter Care Teams Warp Hanger Relationship Specialty Start Date End Date Lorna Bal APRN [address] [place] [address] PCP - General Family Medicine 05/27/18 documented as of this encounter
--- OUTSIDE RECORDS SUMMARY | 2023-12-07 15:21 | XMS_ITS | Encounter Summary ---
Author Organization [facility] [place] [address] Care Team Providers Care Rehab Department Manager Name Role Phone Lorna Bal APRN Primary Care Provider +1 [phone] Reason for Referral * Consultation (Routine) - Authorized Specialty Diagnoses / Procedures Referred By Contac t Referred To Contact Wound Care Diagnoses Osteomyelitis, unspecified site, unspecified type Spinal cord abscess Lorna Bal APRN [address] [place] [address] [facility] [place] [address] Referral ID Status Reason Start Date Expiration Date Visits Requested Visits Authorized [id number] Authorized Consult, Test & Treat PCP Updated and/or Approved 12/26/2022 12/26/2023 12 12 Encounter Details Date Type Department Care Team (Latest Contact Info) Description 12/26/2022 Transcribe Orders eDH Incoming Referrals [phone] Lorna Bal APRN [address] [place] [address] Osteomyelitis, unspecified site, unspecified type; Spinal cord abscess Social History Tobacco Use Types Packs/Day Years Used Date Smoking Tobacco: Never Smokeless Tobacco: Never Comments:NO SMOKERS IN THE H OME Alcohol Use Standard Drinks/Week Comments No 0 (1 standard drink = 0.6 oz pur e alcohol) [facility] Inpatient Questions Answer Date Recorded Does [...] PM EST Office [place] [address] Hollie Ambriz MD [facility] [address] [place] [address] Scheduled Referrals Name Type Priority Associated Diagnoses Orde r Schedule Referral to Plastic Surgery Outpatient Referral Routine Osteomyelitis, unspecified site, unspecified type Spinal cord abscess Ordered: 12/26/2022 documented as of this encounter Visit Diagnoses Diagnosis Osteomyelitis, unspecified site, unspecified type Spinal cord abscess Acute osteomyelitis, other specified site documented in this encounter Care Teams Rehab Department Manager Relationship Specialty Start Date End Date Lorna Bal APRN [address] [place] [address] PCP - General Family Medicine 05/27/18 documented as of this encounter
--- OUTSIDE RECORDS SUMMARY | 2023-12-07 15:21 | XMS_ITS | Encounter Summary ---
Author Organization [facility] [place] [address] Care Team Providers Care Box Nailer Name Role Phone Lorna Bal APRN Primary Care Provider +1 [phone] Encounter Details Date Type Department Care Team (Late st Contact Info) Description 09/24/2022 Telephone [place] [phone] Sergey Keane MD [facility] [place] [address] Social History Tobacco Use Types Packs/Day Years [...] stable to go to her appt in [place] tomorrow with NSG to show them the lesions and see if they can do something about it. I discussed I had limited ability to assist and that a change of antibiotics without new cultures and drainage was not a great idea and the I would be happy to work with either IR here or NSG in [place] to assist. Discussed warning signs to present to the ED. I suspect she just has continued inflammation of the hardware and now that the drain is out it is reaccumulating. Likely will need a chronic drain or surgery. This will be up to NSG on [place]. * Telephone Encounter - Maryanne Sarabia RN [...] Tana has a neurosurgery appt tomorrow in [place]. Mom can be reached at [phone] until 5 pm. Then after 5 pm call Fannie Villarreal [phone]. Note forwarded to Dr. Gerber Dasilva and Dr. Sergey Doan. documented in this encounter Plan of Treatment Upcoming Encounters Date Type Department Care Team (Late st Contact Info) Description 06/02/2024 12:30 PM EST Office Visit [place] [address] Hollie Ambriz MD [facility] [place] [address] documented as of this encounter Visit Diagnoses Not on filedocumented in this encounter Care Teams Box Nailer Relationship Specialty Start Date End Date Lorna Bal APRN [address] [place] [address] PCP - General Family Medicine 05/27/18 documented as of this encounter
--- OUTSIDE RECORDS SUMMARY | 2023-12-07 15:22 | XMS_ITS | Encounter Summary ---
Author Organization [facility] [place] [address] Care Team Providers Care Advanced Quality Engineer Name Role Phone Lorna Bal APRN Primary Care Provider +1 [phone] Reason for Referral * Diagnostic Test (Routine) [...] consciousness, sequela Procedures IR Drain Check/Change/Remove Jamaal Jenkisn, [facility] [place] [address] [facility] [place] [address] Referral ID Status Reason Start Date Expiration Date Visits Requested Visits Authorized [id number] Pending Review Specialty Service Requested 08/25/2022 02/26/2024 1 1 * Diagnostic Test (Routine) - New Request Specialty Diagnoses / Procedures Referred By Contac t Referred To Contact Radiology Diagnoses Spinal abscess Procedures IR Drain Check/Change/Remove Hank Nunez PA [facility] [place] [address] [place] [address] Referral ID Status Reason Start Date Expiration Date Visits Requested Visits Authorized [id number] New Request Specialty Service Requested 08/21/2022 02/21/2024 1 1 Reason for Visit * Diagnostic Test (Routine) - New Request Specialty Diagnoses / Procedures Referred By Contac t Referred To Contact Radiology Diagnoses Spinal abscess Procedures IR Drain Check/Change/Remove Hank Nunez PA [facility] [place] [address] [place] [address] Referral ID Status Reason Start Date Expiration Date Visits Requested Visits Authorized [id number] New Request Specialty Service Requested 08/21/2022 02/21/2024 1 1 Encounter Details Date Type Department Care Team (Latest Contact Info) Description 08/25/2022 12:57 PM EDT - 08/25/2022 11:59 PM EDT Hospital En[place] [address] Piter Self MD [facility] DIAGNOSTIC [place] [address] Spinal abscess; Abscess; Contracture of left elbow; [...] is during regular office hours, please call [phone]. If it is after regular office hours, or on weekends or holidays, please call [phone] and ask to speak to the Latex Caster trade promotion analyst for Interventional Radiology. XX You have received [...] of : 1995 AGE: 27 y.o. Address: [address] [place] [address] Phone: [phone] (home) Mobile: Telephone Information: Referring Provider: Hank Nunez REASON FOR VISIT: Order Questions Answers Where will study be performed? [facility] Radiology [120] Reason for exam and [...] [Transparent Dressings] Itching and Dermatitis Please use [id number] ??? Penicillins Pertinent PMH: Patient Active Problem [...] dislodged and replaced on 07/24. Additional 8 Prydeinig drain placed into adjacent L2/L3 collection at [...] All Drainage Procedures 06/25/2022 Mich Martino MD [facility] INTERVENTIONL RAD ??? IR ALL DRAINAGE PROCEDURES 07/04/2022 IR All Drainage Procedures 07/04/2022 Mich Martino MD [facility] INTERVENTIONL RAD ??? IR ALL DRAINAGE PROCEDURES 07/24/2022 IR All Drainage Procedures 07/24/2022 Anurag Kumar MD [facility] INTERVENTIONL RAD ??? IR DRAIN CHECK/CHANGE/REMOVE 07/01/2022 IR Drain Check/Change/Remove 07/01/2022 Jamaal Jenkins, DO [facility] INTERVENTIONL RAD ??? PRO APPLY OF HIP CASTS, TWO LEGS 08/15/2010 CAST APPLICATION, HIP SPICA, BOTH LEGS performed by BARRERA OLIVER at [facility] OR ? ? PRO I&D, POST SPINE, LUMB/SACR/LUMBOSAC N/A 05/20/2014 @I & D, OPEN, DEEP ABSCESS, LUMBAR, SACRAL, LUMBOSACRAL performed by Freddy Isbell MD at [facility] OR ? ? PRO I&D, POST SPINE, LUMB/SACR/LUMBOSAC N/A 05/26/2014 @I & D, OPEN, DEEP ABSCESS, LUMBAR, SACRAL, LUMBOSACRAL performed by Freddy Isbell MD at [facility] OR ??? PRO IMPACT TOOTH REMOV COMP BONY N/A 06/14/2018 SURGICAL EXTRACTIONS, REMOVAL OF IMPACTED TOOTH, COMPLETELY BONY (WRVU 1.93) performed by Keith Cotton MD at [facility] OSC ??? PRO OSTEOTOMY FEMUR SHAFT/SUPRACONDY 08/15/2010 ??OSTEOTOMY, FEMUR SHAFT OR SUPRACONDYLAR W/O FIXATION performed by BARRERA OLIVER at [facility] MAIN OR ??? PRO RECONSTRUC HIP SOCKET, RESEC FEM HEAD 08/15/2010 ??ACETABULOPLASTY (GIRDLESTONE), RESECTION FEMORAL HEAD, BILATERAL performed by BARRERA OLIVER [facility] MAIN OR ??? PRO REMOVAL DEEP IMPLANT 08/15/2010 REMOVAL IMPLANT, DEEP, BRUNO performed by BARRERA OLIVER at [facility] MAIN OR ??? PRO REMOVAL ERUPTED TOOTH WITH ELEVATION OF MUCOPERIOSTEAL FLAP N/A 06/14/2018 SURGICAL EXTRACTIONS REQUIRING ELEVATION OF MUCOPERIOSTEAL FLAP AND REMOVAL OF BONE OR SECTION OF TOOTH (WRVU 1.09) performed by Keith Cotton MD at [facility] OSC ??? PRO REMOVE INFUSN DEVICE/PUMP N/A 05/11/2014 REMOVAL OF SPINE INFUSION PUMP performed by Jamaal Samuel MD at [facility] MAIN OR ??? PRO REMOVE SPINAL CANAL CATHETER N/A 05/11/2014 REMOVAL OF INTRATHECAL OR EPIDURAL CATHETER performed by Jamaal Samuel MD at [facility] OR ??? PRO REPR, DURAL/CSF LEAK, NOT REQ LAMINECTOMY N/A 05/20/2014 @REPAIR DURAL\CSF LEAK,NOT REQUIRING LAMINECTOMY performed by Freddy Isbell MD at [facility] OR Medications: Current Outpatient Medications [...] EST Office Visit [place] [address] Hollie Ambriz MD [facility] [place] [address] documented as of this encounter Procedures Procedure [...] dislodged and replaced on 07/24. Additional 8 Prydeinig drain placed into adjacent L2/L3 collection at [...] throughout. ?? More Caudal Lumbar Drainage Catheter: Water Resource Consultant fluoroscopic images were obtained. ??Contrast was injected through the catheter and repeat fluoroscopic images were obtained. The drainage catheter was left in place. ??A sterile dressing was applied. ?? More Cranial Lumbar Drainage Catheter: Water Resource Consultant fluoroscopic images were obtained. ??Contrast was [...] mLs documented in this encounter Care Teams Advanced Quality Engineer Relationship Specialty Start Date End Date Lorna Bal APRN [address] [place] [address] PCP - General Family Medicine 05/27/18 documented as of this encounter
--- OUTSIDE RECORDS SUMMARY | 2023-12-07 15:22 | XMS_ITS | Encounter Summary ---
[place] [address] Care Team Providers Care Health Promoter Name Role Phone Lorna Bal APRN Primary Care Provider +1 -[phone] Reason for Referral * Diagnostic Test (Routine) - New Request Specialty Diagnoses / Procedures Referred By Contac t Referred To Contact Radiology Diagnoses Spinal abscess Procedures IR Drain Check/Change/Remove Lucho Burciaga MD [facility] [place] [address] [place] [address] Referral ID Status Reason Start Date Expiration Date Visits Requested Visits Authorized [id number] New Request Specialty Service Requested 07/24/2022 01/25/2024 1 1 Reason for Visit * Diagnostic Test (Routine) - New Request Specialty Diagnoses / Procedures Referred By Contac t Referred To Contact Radiology Diagnoses Spinal abscess Procedures IR Drain Check/Change/Remove Lucho Burciaga MD [facility] [place] [address] [place] [address] Referral ID Status Reason Start Date Expiration Date Visits Requested Visits Authorized [id number] New Request Specialty Service Requested 07/24/2022 01/25/2024 1 1 Encounter Details Date Type Department Care Team (Latest Contact Info) Description 08/11/2022 11:53 AM EDT - 08/11/2022 11:59 PM EDT Hospital [place] [address] Anurag Kumar MD [facility] [place] [address] Spinal abscess Discharge Disposition: Home Social History Tobacco Use Types Packs/Day Years Used Date Smoking Tobacco: Never Smokeless Tobacco: Never Comments:NO SMOKERS IN THE H OME Alcohol Use Standard Drinks/Week Comments No 0 (1 standard drink = 0.6 oz pur e alcohol) [facility] Inpatient Questions Answer Date Recorded [...] is during regular office hours, please call [phone]. If it is after regular office hours, or on weekends or holidays, please call [phone] and ask to speak to the Head School Custodian seasonal driver for Interventional Radiology. XX You have received [...] : 1995 AGE: 27 y.o. Address: [address] [place] [address] Phone: [phone] (home) Mobile: Telephone Information: Referring Provider: Lucho C Stoner REASON FOR VISIT: Order Questions Answers Where will study be performed? [facility] Radiology [120] Reason for exam and clinical history: Sacral and L2-L3 soft tissuel fluid collections Is the patient ? No Is the patient on anticoagulant / antiplatelet therapy ? No Allergies Allergen Reactions ??? Fluoxetine Other (See Comments) HIVES, HEART RACES ??? Tegaderm [Transparent Dressings] Itching and Dermatitis Please use [id number] ??? Penicillins Pertinent PMH: Patient Active Problem [...] Questions Answers Where will study be performed? [facility] Radiology [120] Reason for exam and [...] All Drainage Procedures 06/25/2022 Mich Martino MD [facility] INTERVENTIONL RAD ??? IR ALL DRAINAGE PROCEDURES 07/04/2022 IR All Drainage Procedures 07/04/2022 Mich Martino MD [facility] INTERVENTIONL RAD ??? IR ALL DRAINAGE PROCEDURES 07/24/2022 IR All Drainage Procedures 07/24/2022 Anurag Kumar MD [facility] INTERVENTIONL RAD ??? IR DRAIN CHECK/CHANGE/REMOVE 07/01/2022 IR Drain Check/Change/Remove 07/01/2022 Jamaal Jenkins, DO [facility] INTERVENTIONL RAD ??? PRO APPLY OF HIP CASTS, TWO LEGS 08/15/2010 CAST APPLICATION, HIP SPICA, BOTH LEGS performed by BARRERA OLIVER at [facility] MAIN OR ? ? PRO I&D, POST SPINE, LUMB/SACR/LUMBOSAC N/A 05/20/2014 @I & D, OPEN, DEEP ABSCESS, LUMBAR, SACRAL, LUMBOSACRAL performed by Freddy Isbell MD at [facility] OR ? ? PRO I&D, POST SPINE, LUMB/SACR/LUMBOSAC N/A 05/26/2014 @I & D, OPEN, DEEP ABSCESS, LUMBAR, SACRAL, LUMBOSACRAL performed by Freddy Isbell MD at [facility] MAIN OR ??? PRO IMPACT TOOTH REMOV COMP BONY N/A 06/14/2018 SURGICAL EXTRACTIONS, REMOVAL OF IMPACTED TOOTH, COMPLETELY BONY (WRVU 1.93) performed by Keith Cotton MD at [facility] OSC ??? PRO OSTEOTOMY FEMUR SHAFT/SUPRACONDY 08/15/2010 ??OSTEOTOMY, FEMUR SHAFT OR SUPRACONDYLAR W/O FIXATION performed by BARRERA OLIVER at [facility] MAIN OR ??? PRO RECONSTRUC HIP SOCKET, RESEC FEM HEAD 08/15/2010 ??ACETABULOPLASTY (GIRDLESTONE), RESECTION FEMORAL HEAD, BILATERAL performed by BARRERA OLIVER [facility] OR ??? PRO REMOVAL DEEP IMPLANT 08/15/2010 REMOVAL IMPLANT, DEEP, BRUNO performed by BARRERA OLIVER at [facility] OR ??? PRO REMOVAL ERUPTED TOOTH WITH ELEVATION OF MUCOPERIOSTEAL FLAP N/A 06/14/2018 SURGICAL EXTRACTIONS REQUIRING ELEVATION OF MUCOPERIOSTEAL FLAP AND REMOVAL OF BONE OR SECTION OF TOOTH (WRVU 1.09) performed by Keith Cotton MD at [facility] OSC ??? PRO REMOVE INFUSN DEVICE/PUMP N/A 05/11/2014 REMOVAL OF SPINE INFUSION PUMP performed by Jamaal Samuel MD at [facility] MAIN OR ??? PRO REMOVE SPINAL CANAL CATHETER N/A 05/11/2014 REMOVAL OF INTRATHECAL OR EPIDURAL CATHETER performed by Jamaal Samuel MD at [facility] MAIN OR ??? PRO REPR, DURAL/CSF LEAK, NOT REQ LAMINECTOMY N/A 05/20/2014 @REPAIR DURAL\CSF LEAK,NOT REQUIRING LAMINECTOMY performed by Freddy Isbell MD at [facility] MAIN OR Social History and Habits: [...] PM EST Office [place] [address] Hollie Ambriz MD [facility] [address] [place] [address] documented as of this encounter Procedures Procedure [...] mg documented in this encounter Care Teams Health Promoter Relationship Specialty Start Date End Date Lorna Bal APRN [address] [place] [id number] PCP - General Family Medicine 05/27/18 documented as of this encounter
--- OUTSIDE RECORDS SUMMARY | 2023-12-07 15:22 | XMS_ITS | Encounter Summary ---
Author Organization [facility] [place] [address] Care Team Providers Care Principal Network Engineer Name Role Phone Lorna Bal APRN Primary Care Provider [phone] [phone] Encounter Details Date Type Department Care Team (Latest Contact Info) Description 08/25/2022 Transcribe [place] [phone] Lorna Bal APRN [address] [place], [place] [id number] Escherichia coli septicemia; Intraspinal abscess; Spinal cord [...] PM EST Office [place] [address] Hollie Ambriz MD [facility] [place] [address] documented as of this encounter Visit Diagnoses Diagnosis Escherichia coli septicemia Septicemia due to Escherichia coli (E. coli) Intraspinal abscess Spinal cord abscess Acute osteomyelitis, other specified site documented in this encounter Care Teams Principal Network Engineer Relationship Specialty Start Date End Date Lorna Bal APRN [address] [place] [address] PCP - General Family Medicine 05/27/18 documented as of this encounter
--- OUTSIDE RECORDS SUMMARY | 2023-12-07 15:22 | XMS_ITS | Encounter Summary ---
Author Organization [facility] [place] [address] Care Team Providers Care Keg Inspector Name Role Phone Lorna Bal APRN Primary Care Provider +1 -[phone] Encounter Details Date Type Department Care Team (Late st Contact Info) Description 09/03/2022 Notes Only [place] [id number] Mesha Mckeon, RN Social History Tobacco Use [...] RN - 09/03/2022 11:59 PM EDT This gag writer received called from patient's mom about concerns about her daughter's drains. She reported that they have stopped draining and was wondering how long we were keeping it in. I instructed her to call IR for a drain check. Mom verbalized understanding. She also stated that she took her to [place] for a second opinion. That doctor in [place] was concerned about pt and wanted a call back as well. This gag writer sent inbasket and routed secretaries notes from the Doctor in [place] to Shawn Woodard. Mom is very concerned about her daughters infection. Her end date is on 09/04. documented in this encounter Plan of Treatment Upcoming Encounters Date Type Department Care Team (Late st Contact Info) Description 06/02/2024 12:30 PM EST Office Visit [place] [address] Hollie Ambriz MD [facility] [place] [address] documented as of this encounter Visit Diagnoses Not on filedocumented in this encounter Care Teams Keg Inspector Relationship Specialty Start Date End Date Lorna Bal APRN [address] [place] [address] PCP - General Family Medicine 05/27/18 documented as of this encounter
--- OUTSIDE RECORDS SUMMARY | 2023-12-07 15:22 | XMS_ITS | Encounter Summary ---
Author Organization [facility] [place] [address] Care Team Providers Care Emergency Care Tech Name Role Phone Lorna Bal APRN Primary Care Provider +1 -[phone] Encounter Details Date Type Department Care Team (Late st Contact Info) Description 09/05/2022 Telephone [place] [address] Valentina Stanton Social History Tobacco Use Types [...] PM EST Office Visit [place] [address] Hollie Ambriz MD [facility] [place] [address] documented as of this encounter Visit Diagnoses Not on filedocumented in this encounter Care Teams Emergency Care Tech Relationship Specialty Start Date End Date Lorna Bal, TOBACCO BALER [address] [place] [address] PCP - General Family Medicine 05/27/18 documented as of this encounter
--- OUTSIDE RECORDS SUMMARY | 2023-12-07 15:22 | XMS_ITS | Encounter Summary ---
Author Organization [facility] [place] [address] Care Team Providers Care Granite Installer Name Role Phone Lorna Bal APRN Primary Care Provider +1 [phone] Encounter Details Date Type Department Care Team (Late st Contact Info) Description 08/15/2022 Telephone [place] [address] Shawn Woodard MD [facility] [place] [address] Social History Tobacco Use Types Packs/Day Years [...] to answer her earlier call to the [facility] nursing group with concerns. She was both confused after her clinic appointment of two days ago, when she feels that she received two different messages from the fellow and attending she saw (one suggesting there may not even olmedo infection and the other that Tana might need to be on antibiotics for life); and also concernedabout a buckland of erythema which she had noted around [...] may not be curable (hence discussion about mcc antibiotics), especially with the remaining screw, which [...] PM EST Office [place] [address] Hollie Ambriz MD [facility] [place] [address] documented as of this encounter Visit Diagnoses Not on filedocumented in this encounter Care Teams Granite Installer Relationship Specialty Start Date End Date Lorna Bal APRN [address] [place] [address] PCP - General Family Medicine 05/27/18 documented as of this encounter
--- OUTSIDE RECORDS SUMMARY | 2023-12-07 15:22 | XMS_ITS | Encounter Summary ---
[place] [address] Care Team Providers Care Crocodile Farmer Name Role Phone Lorna Bal APRN Primary Care Provider +1 -[phone] Reason for Referral * Consultation (Routine) - Closed Specialty Diagnoses / Procedures Referred By Contac t Referred To Contact [facility] Diagnoses Spinal abscess Soft tissue abscess Bacteremia Sergey Keane MD [facility] [place] [address] [facility] [place] [address] Referral ID Status Reason Start Date Expiration Date V isits Requested Visits Authorized [id number] Closed Consult, Test & Treat 08/13/2022 08/13/2023 1 1 Encounter Details Date Type Department Care Team (Late st Contact Info) Description 08/13/2022 11:30 AM EDT Office [place] [address] Sergey Keane MD [facility] [place] [address] Spinal abscess; Soft tissue abscess; Bacteremia; longterm 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 Social History Tobacco [...] 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 on 06/24??for evaluation of??increasing redness [...] drainage from the same area??she returned to [facility] on 07/22, a repeated CT [...] Doan MD Infectious Disease Fellow [facility] 08/18/2022 Chronic suppression Behaving as infection [...] PM EST Office [place] [address] Hollie Ambriz MD [facility] [address] [place] [address] Scheduled Referrals Name Type Priority Associated Diagnoses Order Schedule Referral to Orthopaedics Outpatient Referral Routine Spinal abscess Soft tissue abscess Bacteremia Ordered: 08/13/2022 documented as of this encounter Visit Diagnoses Diagnosis Spinal abscess Acute osteomyelitis, other specified site Soft tissue abscess Cellulitis and abscess of other specified site Bacteremia 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 Encounter for long-term (current) use of antibiotics documented in this encounter Care Teams Crocodile Farmer Relationship Specialty Start Date End Date Lorna Bal APRN [address] [place] [address] PCP - General Family Medicine 05/27/18 documented as of this encounter
--- OUTSIDE RECORDS SUMMARY | 2023-12-07 15:22 | XMS_ITS | Encounter Summary ---
Author Organization [facility] [place] [address] Care Team Providers Care Agricultural Plow Operator Name Role Phone Lorna Bal APRN Primary Care Provider +1 -[phone] Reason for Referral * Diagnostic Test (Routine) - Closed Specialty Diagnoses / Procedures Referred By Contac t Referred To Contact Radiology Diagnoses Abscess Procedures CT Lumbar Spine [place] [address] [facility] [place] [address] Referral ID Status Reason Start Date Expiration Date V isits Requested Visits Authorized [id number] Closed Specialty Service Requested 08/12/2022 02/12/2024 1 1 Reason for Visit * Diagnostic Test (Routine) - Closed Specialty Diagnoses / Procedures Referred By Contac t Referred To Contact Radiology Diagnoses Abscess Procedures CT Lumbar Spine [place] [address] [facility] [place] [address] Referral ID Status Reason Start Date Expiration Date V isits Requested Visits Authorized [id number] Closed Specialty Service Requested 08/12/2022 02/12/2024 1 1 Encounter Details Date Type Department Care Team (Latest Contact Info) Description 08/13/2022 8:33 AM EDT - 08/13/2022 11:59 PM EDT Hospital [place] [address] [place] [address] Abscess Discharge Disposition: Home Social [...] PM EST Office Visit Infectious Disease at [facility] [place] [address] Hollie Ambriz MD [facility] [place] [address] documented as of this encounter Procedures Procedure [...] have questions please contact the health care rep that requested your imaging first. ? Electronically signed by: Jamaal Villafuerte [facility] ([phone]), at 08/13/2022 4:52 PM Narrative 08/13/2022 4:52 [...] who have questions please contactthe health care rep that requested your imaging first. Electronically signed by: Jamaal Villafuerte [facility]([phone]), at 08/13/2022 4:52 PM Jamshid Collins MD [...] mLs documented in this encounter Care Teams Agricultural Plow Operator Relationship Specialty Start Date End Date Lorna Bal APRN [address] [place] [address] PCP - General Family Medicine 05/27/18 documented as of this encounter
--- OUTSIDE RECORDS SUMMARY | 2023-12-07 15:22 | XMS_ITS | Encounter Summary ---
Author [facility] [place] [address] Care Team Providers Care Trimming Department Blocker Name Role Phone Lorna Bal APRN Primary Care Provider +1 -[phone] Encounter Details Date Type Department Care Team (Late st Contact Info) Description 09/03/2022 Telephone [place] [address] Halima García Social History Tobacco Use Types [...] return call to Dr. Ila Hadley from [facility]. Requesting a call back to discuss pt dx, 2nd option and how she can best assist with the pt's care. Dr. Hadley [phone]. Thanks Halima documented in this encounter Plan of Treatment Upcoming Encounters Date Type Department Care Team (Late st Contact Info) Description 06/02/2024 12:30 PM EST Office [place] [address] Hollie Ambriz MD [facility] [place] [address] documented as of this encounter Visit Diagnoses Not on filedocumented in this encounter Care Teams Trimming Department Blocker Relationship Specialty Start Date End Date Lorna Bal APRN [address] [place] [address] PCP - General Family Medicine 05/27/18 documented as of this encounter
--- OUTSIDE RECORDS SUMMARY | 2023-12-07 15:22 | XMS_ITS | Encounter Summary ---
Author Organization [facility] Address [facility] [place] [address] Care Team Providers Care Installation Service Representative Name Role Phone Lorna Bal APRN Primary Care Provider +1 -[phone] Encounter Details Date Type Department Care Team (Late st Contact Info) Description 09/08/2022 Telephone [place] [address] Sergey Keane MD [facility] [address] Social History Tobacco Use Types Packs/Day Years [...] moving forward. Patient was recently seen at [facility] for a second opinion. I had the opportunity to speak with the attending physician Dr Patel on 09/03. At the time we discussed Mrs Cavazos clinical course and therapies provided here at [facility]. After our conversation she mentioned that she [...] EST Office Visit [place] [address] Hollie Ambriz MD [facility] [place] [address] documented as of this encounter Visit Diagnoses Not on filedocumented in this encounter Care Teams Installation Service Representative Relationship Specialty Start Date End Date Lorna Bal APRN [address] [place] [address] PCP - General Family Medicine 05/27/18 documented as of this encounter
--- OUTSIDE RECORDS SUMMARY | 2023-12-07 15:22 | XMS_ITS | Encounter Summary ---
Author Organization [facility] [place] [address] Care Team Providers Care Transplant Rn Name Role Phone Lorna Bal APRN Primary Care Provider +1 -[phone] Encounter Details Date Type Department Care Team (Late st Contact Info) Description 09/08/2022 Telephone [place] [address] Valentina Stanton Social History Tobacco Use Types [...] PM EST Office Visit [place] [address] Hollie Ambriz MD [facility] [place] [address] documented as of this encounter Visit Diagnoses Not on filedocumented in this encounter Care Teams Transplant Rn Relationship Specialty Start Date End Date Lorna Bal, CYLINDER SANDER OPERATOR [address] [place] [address] PCP - General Family Medicine 05/27/18 documented as of this encounter
--- OUTSIDE RECORDS SUMMARY | 2023-12-07 15:22 | XMS_ITS | Encounter Summary ---
[place] [address] Care Team Providers Care Forestry Adviser Name Role Phone Lorna Bal APRN Primary Care Provider +1 -[phone] Encounter Details Date Type Department Care Team [...] PM EST Office Visit [place] [address] Hollie Ambriz MD [facility] [place] [address] documented as of this encounter Visit Diagnoses Not on filedocumented in this encounter Care Teams Forestry Adviser Relationship Specialty Start Date End Date Lorna Bal APRN [address] [place] [address] PCP - General Family Medicine 05/27/18 documented as of this encounter
--- OUTSIDE RECORDS SUMMARY | 2023-12-07 15:22 | XMS_ITS | Encounter Summary ---
[place] [address] Care Team Providers Care Attendant Arcade Name Role Phone Lorna Bal APRN Primary Care Provider +1 -[phone] Encounter Details Date Type Department Care Team (Latest Contact Info) Description 08/25/2022 Travel Social History Tobacco Use Types Packs/Day Years Used Date Smoking Tobacco: Never Smokeless Tobacco: Never Comments:NO SMOKERS IN THE H OME Alcohol Use Standard Drinks/Week Comments No 0 (1 standard drink = 0.6 oz pur e alcohol) [facility] Inpatient Questions Answer Date Recorded Does Anyone [...] PM EST Office [place] [address] Hollie Ambriz MD [facility] [place] [address] documented as of this encounter Visit Diagnoses Not on filedocumented in this encounter Care Teams Attendant Arcade Relationship Specialty Start Date End Date Lorna Bal APRN [address] [place] [address] PCP - General Family Medicine 05/27/18 documented as of this encounter
--- OUTSIDE RECORDS SUMMARY | 2023-12-07 15:22 | XMS_ITS | Encounter Summary ---
Author Organization [facility] [place] [address] Care Team Providers Care Automotive Sales Representative Name Role Phone Lorna Bal APRN Primary Care Provider +1 -[phone] Encounter Details Date Type Department Care Team (Late st Contact Info) Description 08/07/2022 Telephone [place] [address] Mesha Mckeon, RN Social History Tobacco Use [...] PM EST Office [place] [address] Hollie Ambriz MD [facility] [place] [address] documented as of this encounter Visit Diagnoses Not on filedocumented in this encounter Additional Health Concerns Infection Onset Date Last Indicated Resolved Time Enterovirus / Rhinovirus 07/28/2022 07/28/2022 8:09 PM EDT documented as of this encounter Care Teams Automotive Sales Representative Relationship Specialty Start Date End Date Lorna Bal APRN [address] [place] [address] PCP - General Family Medicine 05/27/18 documented as of this encounter
--- OUTSIDE RECORDS SUMMARY | 2023-12-07 15:22 | XMS_ITS | Encounter Summary ---
Author Organization [facility] Address [facility] [place] [address] Care Team Providers Care Rigging Man Name Role Phone Lorna Bal APRN Primary Care Provider +1 -[phone] Encounter Details Date Type Department Care Team (Late st Contact Info) Description 09/10/2022 10:00 AM EDT Office Visit [place] [address] Sergey Keane MD 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 I had an extensive conversation with [facility] provider regarding patient's clinical course at and [...] for drain check and spine surgery at [facility] for possible surgical Options. They would like to continue receiving ID care at [facility] at least until surgical options are explored at outside institution. Plan Based on patient clinical presentation, review of data and chart my plan is as follows: -Continue doxycycline 100 mg PO BID -Avoid sunlight exposure while on doxyxycline -Pending evaluation by surgery at [facility], at that point they will decide if [...] Sergey Doan MD Infectious Disease Fellow [facility] 09/14/2022 Chronic suppression Behaving as [...] PM EST Office Visit [place] [address] Hollie Ambriz MD [facility] INFECTIOUS [place] [address] documented as of this encounter Visit Diagnoses Diagnosis Spinal abscess Acute osteomyelitis, other specified site senior care 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 Encounter for long-term (current) use of antibiotics Soft tissue abscess Cellulitis and abscess of other specified site documented in this encounter Care Teams Rigging Man Relationship Specialty Start Date End Date Lorna Bal APRN [address] [place] [address] PCP - General Family Medicine 05/27/18 documented as of this encounter
--- OUTSIDE RECORDS SUMMARY | 2023-12-07 15:22 | XMS_ITS | Encounter Summary ---
[place] [address] Care Team Providers Care Community Ambassador Name Role Phone Lorna Bal APRN Primary Care Provider +1 -[phone] Encounter Details Date Type Department Care Team (Latest Contact Info) Description 08/11/2022 2:40 PM EDT Laboratory Appointment Lab [place] [phone] Spinal abscess; Bacteremia; E coli infection; Soft [...] [facility] [place] [place] [address] Hollie Ambriz MD [facility] [place] [address] documented as of this encounter Procedures Procedure [...] 2:53 PM EDT) Neutrophil % 66.1 % [facility] Neutrophil Absolute 4.09 1.70 - 6.10 x10(3)/[facility] LABORATORY Lymph % 26.8 % [facility] Lymphocytes Abs 1.7 0.9 - 3.2 x10(3)/[facility] LABORATORY Monocyte % 5.7 % [facility] Monocyte Abs 0.4 0.3 - 0.9 x10(3)/[facility] LABORATORY Eos % 1.1 % [facility] LAB[facility] Eosinophils Abs 0.1 0.0 - 0.4 x10(3)/[facility] LABORATORY Basophil % 0.3 % [facility] IT[facility] LAB[facility] Baso Absolute 0.0 0.0 - 0.1 x10(3)/mcL [facility] Immature Gran % 0.00 % [facility] Comment: Immature granulocytes(IG's)percentage and absolute count will include metamyelocytes, myelocytes, and promyelocytes. Blood smears from CBCs yielding IG's will be scanned manually for concordance. If this scan disagrees with the automated IG or if promyelocytes are noted, a manual differential will be performed. Immature Gran Absolute 0.00 0.00 - 0.04 x10(3)/[facility] LABORATORY Blood 08/11/2022 2:53 PM EDT 08/11/2022 3:21 PM EDT Narrative Resulting Agency Comment Spec In Lab Jamaal Estrada MD HEMATOLOGY ORDERABL ES [facility] [place] [address] * (ABNORMAL) Hemogram (08/11/2022 2:53 PM EDT) White Blood Cell 6.2 4.0 - 9.5 x10(3)/mc L [facility] Red Blood Cell 4.81 4.00 - 5.21 x10(6)/mc L [facility] Hemoglobin 12.1 11.7 - 15.5 g/dL [facility] Hematocrit 37.4 35.7 - 45.8 % [facility] Mean Cell Volume 77.8(L) 82.6 - 94.4 fL [facility] Mean Cell Hemoglobin 25.2(L) 27.1 - 32.0 pg [facility] Mean Cell Hemoglobin Concentration 32.4 31.7 - 35.0 g/dL [facility] Platelet 387(H) 145 - 357 x10(3)/mc L [facility] RDW Standard Deviation 50.0(H) 37.0 - 46.0 fL [facility] RDW coefficient of variation 17.9(H) 11.5 - 14.1 % [facility] Mean Platelet Volume 9.6 7.6 - 12.9 fL [facility] NRBC% auto 0.0 % [facility] NRBC Absolute 0.000 0.000 - 0.000 x10(3)/mc L [facility] Blood 08/11/2022 2:53 PM EDT 08/11/2022 3:21 PM EDT Narrative Resulting Agency Comment Spec In Lab Jamaal Estrada MD HEMATOLOGY ORDERABL ES [facility] [place] [address] * (ABNORMAL) Comprehensive metabolic panel (non-fasting) (08/11/2022 2:53 PM EDT) Glucose 75 65 - 199 mg/dL [facility] Comment:Diabetes: >=200 mg/d L plus symptoms Blood Urea Nitrogen 9 8 - 18 mg/dL [facility] Creatinine 0.25(L) 0.70 - 1.20 mg/dL [facility] Sodium 141 135 - 145 mmol/L [facility] Potassium 4.0 3.5 - 5.0 mmol/L [facility] Comment: Please note: ??Patients with WBC >100,000 may have falsely elevated Potassium levels. ??For accurate Potassium quantification in these patients send serum separator tube (gold top) for subsequent determinations. ??Contact the Clinical Chemistry Laboratory if there are any questions. Chloride 105 98 - 107 mmol/L [facility] Carbon Dioxide 24 22 - 31 mmol/L [facility] Anion Gap 12 5 - 15 mmol/L [facility] Calcium 9.4 8.5 - 10.5 mg/dL [facility] Protein, Total 8.0 6.1 - 8.0 g/dL [facility] Albumin 4.2 3.2 - 5.2 g/dL [facility] Aspartate Aminotransferase 19 0 - 30 unit/L [facility] Alanine Aminotransferase 26 0 - 30 unit/L [facility] Alkaline Phosphatase 211(H) 35 - 105 unit/L [facility] Bilirubin, Total <0.2(L) 0.2 - 1.3 mg/dL [facility] Est Glomerular Filtration Rate 154 >=60 mL/min/1. 73 m?? [facility] Comment: This patient's estimated [...] Performing Organization Address City/[facility]/ZIP Co de Phone Number [facility] [place] [address] * (ABNORMAL) CRP, acute inflammation (08/11/2022 2:53 PM EDT) C-Reactive Protein 45.8(H) <=4.9 mg/L [facility] Blood 08/11/2022 2:53 PM EDT 08/11/2022 3:21 PM EDT Narrative Resulting Agency Comment Spec In Lab Jamaal Estrada MD CHEMISTRY ORDERABLE S [facility] [place] [address] documented in this encounter Visit Diagnoses Diagnosis Spinal abscess Acute osteomyelitis, other specified site Bacteremia E coli infection Other and unspecified Escherichia coli (E. coli) Soft tissue abscess Cellulitis and abscess of other specified site Muscle abscess Other disorder of muscle, ligament, and fascia documented in this encounter Care Teams Community Ambassador Relationship Specialty Start Date End Date Lorna Bal APRN [address] [place] [address] PCP - General Family Medicine 05/27/18 documented as of this encounter
--- OUTSIDE RECORDS SUMMARY | 2023-12-07 15:22 | XMS_ITS | Encounter Summary ---
Author Organization [facility] [place] [address] Care Team Providers Care Labor Delivery Rn Name Role Phone Lorna Bal APRN Primary Care Provider +1 [phone] Reason for Referral * Diagnostic Test (Routine) [...] [facility] [place] [address] [facility] [place] [address] Referral ID Status Reason Start Date Expiration Date Visits Requested Visits Authorized [id number] Pending Review Specialty Service Requested 08/25/2022 02/26/2024 [...] Jamaal Jenkins, [facility] [place] [address] [facility] [place] [address] Referral ID Status Reason Start Date Expiration Date Visits Requested Visits Authorized [id number] Pending Review Specialty Service Requested 08/25/2022 02/26/2024 1 1 Encounter Details Date Type Department Care Team (Latest Contact Info) Description 09/10/2022 10:49 AM EDT - 09/10/2022 11:59 PM EDT Hospital [place] [address] Jamaal Jenkins, [facility] [place] [address] Spinal abscess; Abscess; Contracture of left elbow; [...] drink = 0.6 oz pur e alcohol) [facility] Inpatient Questions Answer Date Recorded [...] Qiu RN - 09/10/2022 12:55 PM EDT [facility] Vascular and Interventional Radiology Discharge Instructions [...] is during regular office hours, please call [phone]. If it is after regular office hours, or on weekends or holidays, please call [phone] and ask to speak to the Special Agent In Charge slot floor person for Interventional Radiology. You may resume your [...] of : 1995 AGE: 27 y.o. Address: [address] [place] [address] Phone: [phone] (home) Mobile: Telephone Information: Referring Provider: Jamaal [...] Questions Answers Where will study be performed? [facility] Radiology [120] Reason for exam and clinical history: Paraspinal abscesses status post drain palcement. Persistent collections. Drain repositioned 08/25. Routine 3-week drain check. Is the patient ? No Is the patient on anticoagulant / antiplatelet therapy ? No Allergies Allergen Reactions ??? Fluoxetine Other (See Comments) HIVES, HEART RACES ??? Tegaderm [Transparent Dressings] Itching and Dermatitis Please use [id number] ??? Penicillins Pertinent PMH: Patient Active Problem [...] [facility] INTERVENTIONL RAD ??? IR ALL DRAINAGE PROCEDURES 07/04/2022 IR All Drainage Procedures 07/04/2022 Mich Martino MD [facility] INTERVENTIONL RAD ??? IR ALL DRAINAGE PROCEDURES 07/24/2022 IR All Drainage Procedures 07/24/2022 Anurag Kumar MD [facility] INTERVENTIONL RAD ??? IR DRAIN CHECK/CHANGE/REMOVE 07/01/2022 IR Drain Check/Change/Remove 07/01/2022 Jamaal Jenkins, DO [facility] INTERVENTIONL RAD ??? IR DRAIN CHECK/CHANGE/REMOVE 08/11/2022 IR Drain Check/Change/Remove 08/11/2022 Piter Self MD [facility] INTERVENTIONL RAD ??? IR DRAIN CHECK/CHANGE/REMOVE 08/25/2022 IR Drain Check/Change/Remove 08/25/2022 Jamaal Jenkins, DO [facility] INTERVENTIONL RAD ??? PRO APPLY OF HIP CASTS, TWO LEGS 08/15/2010 CAST APPLICATION, HIP SPICA, BOTH LEGS performed by BARRERA OLIVER at [facility] OR ? ? PRO I&D, POST SPINE, LUMB/SACR/LUMBOSAC N/A 05/20/2014 @I & D, OPEN, DEEP ABSCESS, LUMBAR, SACRAL, LUMBOSACRAL performed by Freddy Isbell MD at [facility] OR ? ? PRO I&D, POST SPINE, LUMB/SACR/LUMBOSAC N/A 05/26/2014 @I & D, OPEN, DEEP ABSCESS, LUMBAR, SACRAL, LUMBOSACRAL performed by Freddy Isbell MD at [facility] OR ??? PRO IMPACT TOOTH REMOV COMP BONY N/A 06/14/2018 SURGICAL EXTRACTIONS, REMOVAL OF IMPACTED TOOTH, COMPLETELY BONY (WRVU 1.93) performed by Keith Cotton MD at [facility] OSC ??? PRO OSTEOTOMY FEMUR SHAFT/SUPRACONDY 08/15/2010 ??OSTEOTOMY, FEMUR SHAFT OR SUPRACONDYLAR W/O FIXATION performed by BARRERA OLIVER at [facility] OR ??? PRO RECONSTRUC HIP SOCKET, RESEC FEM HEAD 08/15/2010 ??ACETABULOPLASTY (GIRDLESTONE), RESECTION FEMORAL HEAD, BILATERAL performed by BARRERA OLIVER [facility] OR ??? PRO REMOVAL DEEP IMPLANT 08/15/2010 REMOVAL IMPLANT, DEEP, BRUNO performed by BARRERA OLIVER at [facility] OR ??? PRO REMOVAL ERUPTED TOOTH [...] MD at [facility] MAIN OR Medications: Current Outpatient Medications [...] PM EST Office [place] [address] Hollie Ambriz MD [facility] [place] [address] documented as of this encounter Procedures Procedure [...] mLs documented in this encounter Care Teams Labor Delivery Rn Relationship Specialty Start Date End Date Lorna Bal, [place] [address] [place] [address] PCP - General Family Medicine 05/27/18 documented as of this encounter
--- OUTSIDE RECORDS SUMMARY | 2023-12-07 15:22 | XMS_ITS | Encounter Summary ---
Author Organization [facility] Address [facility] [place] [address] Care Team Providers Care Piping Blocker Name Role Phone Lorna Bal APRN Primary Care Provider +1 -[phone] Encounter Details Date Type Department Care Team (Late st Contact Info) Description 08/07/2022 1:00 PM EDT TH Visit (TeleHealth) [place] [phone] Lilli Joy APRN [facility] [place] [address] Spinal abscess; Acute hematogenous osteomyelitis, unspecified site; [...] this encounter Progress Notes * Lilli Joy, NURSE SITTER - 08/07/2022 1:00 PM EDT .. INFECTIOUS [...] [Transparent Dressings] Itching and Dermatitis Please use [id number] ??? Penicillins Physical Exam: Deferred Labs: Lab [...] PM EST Office [place] [address] Hollie Ambriz MD [facility] [place] [address] documented as of this encounter Visit Diagnoses [...] as of this encounter Care Teams Piping Blocker Relationship Specialty Start Date End Date Lorna Bal APRN [address] [place] [address] PCP - General Family Medicine 05/27/18 documented as of this encounter
--- OUTSIDE RECORDS SUMMARY | 2023-12-07 15:22 | XMS_ITS | Encounter Summary ---
[place] [address] Care Team Providers Care Parts Counter Specialist Name Role Phone Lorna Bal APRN Primary Care Provider +1 -[phone] Encounter Details Date Type Department Care Team (Late st Contact Info) Description 08/25/2022 Trans[place] [phone] Lorna Bal APRN [address] [place], [place] [address] Social History Tobacco Use Types Packs/Day Years [...] PM EST Office [place] [address] Hollie Ambriz MD [facility] [place] [address] documented as of this encounter Visit Diagnoses Not on filedocumented in this encounter Care Teams Parts Counter Specialist Relationship Specialty Start Date End Date Lorna Bal APRN [address] [place] [address] PCP - General Family Medicine 05/27/18 documented as of this encounter
--- OUTSIDE RECORDS SUMMARY | 2023-12-07 15:22 | XMS_ITS | Encounter Summary ---
Author Organization Counts Include [address] [facility] [address] Care Team Providers Care Mma Fighter Name Role Phone Lorna Bal APRN Primary Care Provider +1 -[phone] Reason for Referral * Home Health Care (Routine) - Denied Specialty Diagnoses / Procedures Referred By Contac t Referred To Contact Diagnoses Spinal abscess [place] [address] [facility] [address] [place] [phone] Referral ID Status Reason Start Date Expiration Date V isits Requested Visits Authorized [id number] Denied Consult, Test & Treat 08/06/2022 08/06/2023 999 0 Encounter Details Date Type Department Care Team (Late st Contact Info) Description 08/06/2022 [place] [address] Curt Torres MD [place], [place] [phone] Spinal abscess Social History Tobacco Use Types [...] PM EST Office Visit [place] [address] Hollie Ambriz MD [facility] DR [place] [address] Scheduled Referrals Name Type Priority Associated Diagnoses [...] documented as of this encounter Care Teams Mma Fighter Relationship Specialty Start Date End Date Lorna Bal APRN [address] [place] [address] PCP - General Family Medicine 05/27/18 documented as of this encounter
--- OUTSIDE RECORDS SUMMARY | 2023-12-07 15:22 | XMS_ITS | Encounter Summary ---
[place] [address] Care Team Providers Care Corporate Physical Security Supervisor Name Role Phone Lorna Bal APRN Primary Care Provider +1 -[phone] Encounter Details Date Type Department Care Team [...] PM EST Office [place] [phone] Hollie Ambriz MD [facility] [place] [address] documented as of this encounter Visit Diagnoses Not on filedocumented in this encounter Care Teams Corporate Physical Security Supervisor Relationship Specialty Start Date End Date Lorna Bal APRN [address] [place] [address] PCP - General Family Medicine 05/27/18 documented as of this encounter
--- OUTSIDE RECORDS SUMMARY | 2023-12-07 15:22 | XMS_ITS | Encounter Summary ---
Author Organization [facility] [place] [address] Care Team Providers Care Sales Recruiter Name Role Phone Lorna Bal APRN Primary Care Provider +1 -[phone] Encounter Details Date Type Department Care Team (Late st Contact Info) Description 08/15/2022 Telephone [place] [address] Neva Thorpe, RN Social History Tobacco Use Types Packs/Day Years Used Date Smoking Tobacco: Never Smokeless Tobacco: Never Comments:NO SMOKERS IN THE H OME Alcohol Use Standard Drinks/Week Comments No 0 (1 standard drink = 0.6 oz pur e alcohol) [facility] Inpatient Questions Answer Date Recorded [...] 08/15/2022 2:26 PM EDT Pictures received via [facility] of Tana's back wound. This RN [...] Office [place] [address] Hollie Ambriz MD [facility] [place] [address] documented as of this encounter Visit Diagnoses Not on filedocumented in this encounter Care Teams Sales Recruiter Relationship Specialty Start Date End Date Lorna Bal APRN [address] [place] [address] PCP - General Family Medicine 05/27/18 documented as of this encounter
--- OUTSIDE RECORDS SUMMARY | 2023-12-07 15:22 | XMS_ITS | Encounter Summary ---
Author Organization [place] [address] Care Team Providers Care Manager Of Learning Name Role Phone Lorna Bal APRN Primary Care Provider +1 -[phone] Reason for Referral * Diagnostic Test (Routine) - New Request Specialty Diagnoses / Procedures Referred By Contac t Referred To Contact Radiology Diagnoses Spinal abscess Procedures IR Drain Check/Change/Remove Hank Nunez PA [facility] [place] [address] [place] [address] Referral ID Status Reason Start Date Expiration Date Visits Requested Visits Authorized [id number] New Request Specialty Service Requested 08/21/2022 02/21/2024 1 1 Encounter Details Date Type Department Care Team (Late st Contact Info) Description 08/21/2022 [place] [address] Hank Nunez PA [facility] [place] [address] Spinal abscess Social History Tobacco Use Types Packs/Day Years Used Date Smoking Tobacco: Never Smokeless Tobacco: Never Comments:NO SMOKERS IN THE H OME Alcohol Use Standard Drinks/Week Comments No 0 (1 standard drink = 0.6 oz pur e alcohol) [facility] Inpatient Questions Answer Date Recorded Does Anyone [...] PM EST Office [place] [address] Hollie Ambriz MD [facility] [place] [address] documented as of this encounter Results * [...] dislodged and replaced on 07/24. Additional 8 Scottish drain placed into adjacent L2/L3 collection at [...] throughout. ?? More Caudal Lumbar Drainage Catheter: Global Clinical Leader fluoroscopic images were obtained. ??Contrast was injected through the catheter and repeat fluoroscopic images were obtained. The drainage catheter was left in place. ??A sterile dressing was applied. ?? More Cranial Lumbar Drainage Catheter: Global Clinical Leader fluoroscopic images were obtained. ??Contrast was injected [...] sequela documented in this encounter Care Teams Manager Of Learning Relationship Specialty Start Date End Date Lorna Bal, [place] [address] [place] [address] PCP - General Family Medicine 05/27/18 documented as of this encounter
--- OUTSIDE RECORDS SUMMARY | 2023-12-07 15:22 | XMS_ITS | Encounter Summary ---
[place] [address] Care Team Providers Care Associate Oracle Retail Name Role Phone Lorna Bal APRN Primary Care Provider +1 -[phone] Encounter Details Date Type Department Care Team (Latest Contact Info) Description 08/25/2022 4:30 PM EDT Laboratory Appointment Lab [address] [address] Spinal abscess; Bacteremia; E coli infection; Soft [...] PM EST Office Visit [place] [address] Hollie Ambriz MD [facility] [place] [address] documented as of this encounter Visit Diagnoses Diagnosis Spinal abscess Acute osteomyelitis, other specified site Bacteremia E coli infection Other and unspecified Escherichia coli (E. coli) Soft tissue abscess Cellulitis and abscess of other specified site Muscle abscess Other disorder of muscle, ligament, and fascia documented in this encounter Care Teams Associate Oracle Retail Relationship Specialty Start Date End Date Lorna Bal APRN [address] [place] [address] PCP - General Family Medicine 05/27/18 documented as of this encounter
--- OUTSIDE RECORDS SUMMARY | 2023-12-07 15:22 | XMS_ITS | Encounter Summary ---
Author Organization [facility] [place] [address] Care Team Providers Care Metal Box Maker Name Role Phone Lorna Bal APRN Primary Care Provider +1 -[phone] Encounter Details Date Type Department Care Team (Late st Contact Info) Description 08/06/2022 Telephone [place] [phone] Halima García Social History Tobacco Use Types [...] - 08/06/2022 8:35 AM EDT Shonna from [facility] called. Pt's home healthcare orders need to be restarted and orders need to be placed for weekly lab draw and drainage care. documented in this encounter Plan of Treatment Upcoming Encounters Date Type Department Care Team (Late st Contact Info) Description 06/02/2024 12:30 PM EST Office Visit [place] [address] Hollie Ambriz MD [facility] [place] [address] documented as of this encounter Visit Diagnoses Not on filedocumented in this encounter Additional Health Concerns Infection Onset Date Last Indicated Resolved Time Enterovirus / Rhinovirus 07/28/2022 07/28/2022 8:09 PM EDT documented as of this encounter Care Teams Metal Box Maker Relationship Specialty Start Date End Date Lorna Bal APRN [address] [place] [address] PCP - General Family Medicine 05/27/18 documented as of this encounter
--- OUTSIDE RECORDS SUMMARY | 2023-12-07 15:22 | XMS_ITS | Encounter Summary ---
[place] [address] Care Team Providers Care Scalping Machine Operator Name Role Phone Lorna Bal APRN Primary Care Provider +1 -[phone] Encounter Details Date Type Department Care Team [...] PM EST Office Visit [place] [address] Hollie Ambriz MD [facility] [place] [address] documented as of this encounter Visit Diagnoses Not on filedocumented in this encounter Care Teams Scalping Machine Operator Relationship Specialty Start Date End Date Lorna Bal APRN [address] [place] [address] PCP - General Family Medicine 05/27/18 documented as of this encounter
--- OUTSIDE RECORDS SUMMARY | 2023-12-07 15:22 | XMS_ITS | Encounter Summary ---
Author Organization [facility] [place] [address] Care Team Providers Care Shot Polisher And Inspector Name Role Phone Lorna Bal APRN Primary Care Provider +1 -[phone] Encounter Details Date Type Department Care Team (Late st Contact Info) Description 08/19/2022 Telephone [place] [phone] Lilli Joy APRN [facility] [address] [place] [address] Social History Tobacco Use Types Packs/Day Years Used Date Smoking Tobacco: Never Smokeless Tobacco: Never Comments:NO SMOKERS IN THE H OME Alcohol Use Standard Drinks/Week Comments No 0 (1 standard drink = 0.6 oz pur e alcohol) [facility] Inpatient Questions Answer Date Recorded Does Anyone [...] Notes * Telephone Encounter - Lilli Joy, PATTERN AND CHAIN MAKER - 08/19/2022 8:59 PM EDT S: Received [...] PM EST Office [place] [address] Hollie Ambriz MD [facility] [place] [address] documented as of this encounter Visit Diagnoses Not on filedocumented in this encounter Care Teams Shot Polisher And Inspector Relationship Specialty Start Date End Date Lorna Bal APRN [address] [place] [address] PCP - General Family Medicine 05/27/18 documented as of this encounter
--- OUTSIDE RECORDS SUMMARY | 2023-12-07 15:23 | XMS_ITS | Encounter Summary ---
[place] [address] Care Team Providers Care Client Care Specialist Name Role Phone Lorna Bal APRN Primary Care Provider [phone] Reason for Referral * Diagnostic Test (Routine) - New Request Specialty Diagnoses / Procedures Referred By Contac t Referred To Contact Radiology Diagnoses Spinal abscess Procedures IR Drain Check/Change/Remove Lucho Burciaga MD [facility] [place] [address] [place] [address] Referral ID Status Reason Start Date Expiration Date Visits Requested Visits Authorized [id number] New Request Specialty Service Requested 07/24/2022 01/25/2024 1 1 Reason for Visit * Reason Comments Wound Check * Auth/Cert (Routine) Specialty Diagnoses / Procedures Referred By Contac t Referred To Contact Diagnoses Abscess Procedures EMERGENCY Eddi Samuel MD [facility] [place] [address] [facility] Referral ID Status Reason Start Date Expiration Date Visits Re quested Visits Authorized [id number] 1 1 Encounter Details Date Type Department Care Team (Latest Contact Info) Description 07/22/2022 5:43 PM EDT - 08/01/2022 5:12 PM EDT Hospital Encounter Medical Specialites Unit Level 1 [place] [id number] Alek Tavares MD [facility] [place] [address] Eddi Váz[place] [address] [place] [address] [place] [address] 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 Dx); QT prolongation; Abscess [...] Tana Cavazos Patient Age: 27 y.o. Language: Greek Race: White Ethnicity: Not nor Admit date: [...] please contact your inpatient physician through the [facility] Director Of Optimization . Issues afterhours and on weekends will [...] [Transparent Dressings] Itching and Dermatitis Please use [id number] ??? Penicillins Immunizations Given this Hospitalization: Immunization History Administered Date(s) Administered ??? Influenza Vaccine (Novel) [id number], Injectable 02/25/2009 ??? Influenza Vaccine w/Preservative, Split [...] her to stop it. She might require usp antibiotics to suppress infection. At some point [...] Center 08/07/2022 1:00 PM Lilli Joy APRN [facility] 08/11/2022 12:50 PM [facility] IR ROOM 6 IR [facility] Rad 08/13/2022 11:30 AM Sergey Keane MD [facility] Follow-up Appointments: N/A Your Inpatient Doctor(s) at [facility]: ALEK TAVARES, ERNESTO MCCARTHY, EDDI BELL, JODY Kwong For questions regarding issues relating to your hospitalization on the Hospital Medicine Service, please contact your inpatient physician through the [facility] Director Of Optimization [phone]. Issues after hours and on weekends will be handled by the Hospitalist staff on-call. Your Primary Care Provider Lorna Bal APRN [phone] General Instructions INTERVENTIONAL RADIOLOGY DRAIN CARE INSTRUCTIONS [...] is during regular office hours, please call [phone]. If it is after regular office hours, or on weekends or holidays, please call [phone] and ask to speak to the Customs Brokerage Manager communications instructor for Interventional Radiology. XX You have received [...] PM Lilli Joy APRN Infectious Disease at [facility] Arrive at: Home [phone] Please do not come in for this visit. Your provider will call you at the number you provided. 08/11/2022 12:50 PM [facility] IR ROOM 6 Radiology at [facility] Arrive at: [facility]Z RADIOLOGY [phone] Please expect a call from a radiology nurse within 3 days of your exam, you will need to follow theinstructions given at that time. 08/13/2022 11:30 AM Sergey Keane MD Infectious Disease at [facility] Arrive at: Pressure Welder Area [phone] Future Orders Complete By Expires IR Drain Check/Change/Remove [[id number] Custom] 08/07/2022 (Approximate) 02/06/2023 Process Instructions: Scheduling Instructions: Comments: Questions: Where will study be performed?: [facility] Radiology Reason for exam and clinical [...] ?: No CT Lumbar Spine w Contrast [[id number] Custom] 08/08/2022 02/07/2023 Process Instructions: Scheduling Instructions: Questions: Clinical information / foster questions for radiologist: eval for interval changes in abscesses s/p drain placement Where will study be performed?: [facility] Radiology Is the patient ?: No Stat read required?: Does patient require sedation?: GA rationale: Date of injury if applicable: Recurring Lab Work Interval Expires CBC (with Diff) [[id number] Custom] Once a week until 08/02/2023 08/02/2023 Process Instructions: INCLUDES: WBC, RBC, Hgb, Hct, Platelets, RBC Indices and Differential Scheduling Instructions: Comments: Questions: Comprehensive metabolic panel (non-fasting) [LAB17 Custom] Once a week until 08/02/2023 08/02/2023 Process Instructions: INCLUDES: Calcium, T Protein, Albumin, AST, ALT, Alk Phos, T Bili, BUN, Creat, GFR, Glucose, Lytes. Scheduling Instructions: Comments: Questions: CRP, acute inflammation [[id number] Custom] Once a week until 08/02/2023 08/02/2023 [...] is during regular office hours, please call [phone]. If it is after regular office hours, or on weekends or holidays, please call [phone] and ask to speak to the Customs Brokerage Manager communications instructor for Interventional Radiology. XX You have received [...] her to stop it. She might require usp antibiotics to suppress infection. At some point [...] Center 08/07/2022 1:00 PM Lilli Joy APRN [facility] 08/11/2022 12:50 PM [facility] IR ROOM 6 [facility] Rad 08/13/2022 11:30 AM Sergey Keane MD [facility] Follow-up Appointments: N/A Your Inpatient Doctor(s) at [facility]: ALEK TAVARES ABHIJIT S STEWART, EMILY A O'DOWD, EDDI BELL TIMOTHY R For questions regarding issues relating to your hospitalization on the Hospital Medicine Service, please contact your inpatient physician through the [facility] Director Of Optimization [phone]. Issues after hours and on weekends will be handled by the Hospitalist staff on-call. Your Primary Care Provider Lorna Bal, STEAM GENERATING POWERPLANT MECHANIC [phone] documented in this encounter Medications at Time [...] Lundberg DO ID Fellow Green Team Pager: [phone] I examined the patient independently of Dr. [...] a hospital length of stay nutrition evaluation. Certified Coding Specialist spoke with nursing d/tpt status. Per documentation patient has excellent PO intakes recorded at 75-100% over the past 4 days. According to dining services software they have ordered btwn 1608-3033kcals/day within the sameduration. Pt is eating great with caregiver assistance and is completing 75% of food received per RN. Certified Coding Specialist unable to assess weight d/t only documentation [...] spent >30 minutes (Day of Discharge Code 79592) involved in the final examination of the patient, discussion of the hospital stay, instructions for continuing care to all relevant caregivers, and preparation of discharge records, prescriptions and referral forms. Plans ? Discharge to home ? Follow-up scheduled with infectious diseases, IR ? Please see the Discharge Summary for complete details of any medication changes and additional plans. Jody Collins MD [facility] Medicine * Yandy Masters RN - 08/01/2022 2:01 AM EDTSummary: Nursing OUTCOME EVALUATION NOTE: OUTCOME SUMMARY: Alert, non-verbal, hx of paraplegia, vss, 2a/L, no s+s of pain. Patient is resting comfortably in bed, Fannie (customer supply coordinator) at bedside and attentive to patient, 2 [...] Lundberg, DO ID Fellow Green Team Pager: [phone] I examined the patient independently of Dr. [...] Spine Surgery - Department of Orthopaedic Surgery Locator - Department of Orthopedic Surgery / Academics and Research National Sales Director Professor - [facility] 08/01/2022 * Jody Collins MD - [...] drain x 2, oropeza, PIV Anticipated Disposition: computer terminal operator care facility Code Status: Attempt Cardiopulmonary Resuscitation [...] of two midnights or is on the [facility] inpatient only procedure list (status C) due to: monitoring of fluid status given an inability to regulate fluid balance and the need for administration or restriction of fluids Team Pager( Coverage 17/11): #[phone] PCP: Lorna Bal, STEAM GENERATING POWERPLANT MECHANIC [phone] Jody Collins MD 07/31/2022 * Paige Gonzalez [...] ADLs]: Hands on Surveillance [continuous indirect monitoring[facility] Room near nurses' station [...] Lundberg, DO ID Fellow Green Team Pager: [phone] I interviewed and examined the patient independently [...] Identification Panel by PCR Refer to link [email or web address] for a complete list of organisms. Identification [...] drain x 2, oropeza, PIV Anticipated Disposition: computer terminal operator care facility Code Status: Attempt Cardiopulmonary Resuscitation [...] of two midnights or is on the [facility] inpatient only procedure list (status C) due to: monitoring of fluid status given an inability to regulate fluid balance and the need for administration or restriction of fluids Team Pager(MD Coverage 17/11): #[phone] PCP: Lorna Bal, STEAM GENERATING POWERPLANT MECHANIC [phone] Jody Collins MD 07/30/2022 * Shawn Woodard [...] attending, Dr. Vance Lundberg DO ID Fellow [place] Team Pager: [phone] I interviewed and examined the patient independently [...] Hospital Problems No resolved problems to display. [facility] Active Non-Hospital Problems Diagnosis ??? Spinal abscess [...] future testing is required, contact the Microbiology Journeyman Welder. * No growth at 5 days. No [...] drain x 2, oropeza, PIV Anticipated Disposition: usp care facility Code Status: Attempt Cardiopulmonary Resuscitation [...] of two midnights or is on the [facility] inpatient only procedure list (status C) due to: monitoring of fluid status given an inability to regulate fluid balance and the need for administration or restriction of fluids Team Pager( Coverage 17/11): #[phone] PCP: Lorna Bal, STEAM GENERATING POWERPLANT MECHANIC [phone] Jody Collins MD 07/29/2022 * Jody Collins [...] future testing is required, contact the Microbiology Journeyman Welder. * No growth at 5 days. No [...] drain x 2, oropeza, PIV Anticipated Disposition: usp care facility Code Status: Attempt Cardiopulmonary Resuscitation [...] of two midnights or is on the [facility] inpatient only procedure list (status C) due to: monitoring of fluid status given an inability to regulate fluid balance and the need for administration or restriction of fluids Team Pager(MD Coverage 17/11): #[phone] PCP: Lorna Bal, STEAM GENERATING POWERPLANT MECHANIC [phone] Jody Collins MD 07/28/2022 * Margy Mtz [...] future testing is required, contact the Microbiology Journeyman Welder. * No growth at 5 days. No [...] drain x 2, oropeza, PIV Anticipated Disposition: usp care facility Code Status: Attempt Cardiopulmonary Resuscitation [...] of two midnights or is on the [facility] inpatient only procedure list (status C) due to: monitoring of fluid status given an inability to regulate fluid balance and the need for administration or restriction of fluids Team Pager( Coverage 17/11): #[phone] PCP: Lorna Bal, STEAM GENERATING POWERPLANT MECHANIC [phone] Jody Collins MD 07/27/2022 * Citlali Mcdonald [...] future testing is required, contact the Microbiology Journeyman Welder. * No growth at 5 days. No [...] drain x 2, oropeza, PIV Anticipated Disposition: usp care facility Code Status: Attempt Cardiopulmonary Resuscitation [...] of two midnights or is on the [facility] inpatient only procedure list (status C) due to: monitoring of fluid status given an inability to regulate fluid balance and the need for administration or restriction of fluids Team Pager(MD Coverage 17/11): #[phone] PCP: Lorna Bal, STEAM GENERATING POWERPLANT MECHANIC [phone] Jody Collins MD 07/26/2022 * Citlali Mcdonald [...] the same area she presented returned to [facility] on 07/22, a repeated CT of the [...] Sergey Doan MD Infectious Disease Fellow Pager [phone] 07/25/22 (Attending addendum to follow) Associated attestation [...] future testing is required, contact the Microbiology Journeyman Welder. * No growth at 5 days. No [...] drain x 2, oropeza, PIV Anticipated Disposition: computer terminal operator care facility Code Status: Attempt Cardiopulmonary Resuscitation [...] of two midnights or is on the [facility] inpatient only procedure list (status C) due to: monitoring of fluid status given an inability to regulate fluid balance and the need for administration or restriction of fluids Team Pager( Coverage 17/11): #[phone] PCP: Lorna Bal, STEAM GENERATING POWERPLANT MECHANIC [phone] Jody Collins MD 07/25/2022 * Anamika Todd [...] Todd PA-C Interventional Radiology IR Team Pager [phone] * Citlali Mcdonald RN - 07/25/2022 4:46 [...] : 1995 AGE: 27 y.o. Address: [address] [place] [address] Phone: [phone] (home) Mobile: Telephone Information: Referring Provider: Unknown [...] [Transparent Dressings] Itching and Dermatitis Please use [id number] ??? Penicillins Pertinent PMH: Patient Active Problem [...] - DVT PPx: lovenox - Disposition: her usp care facility - Family support: mother and her computer terminal operator care providers - Code Status: Attempt Cardiopulmonary Resuscitation - Inpatient IPI Certification I certify that I am a D-H credentialed attending provider with admitting privileges and that the patient meets or has met medical necessity to require an inpatient IPI level of care meeting a minimumof two midnights or is on the [facility] inpatient only procedure list (status C) due to: monitoring of fluid status given an inability to regulate fluid balance and the need for administration or restriction of fluids Ernesto Willingham MD TEAM/PAGER:[phone] Subjective/24hr events: Says yes to most questions. [...] future testing is required, contact the Microbiology Journeyman Welder. * No growth at 5 days. No [...] who have questions please contact the health housekeeper caregiver that requested your imaging first. Electronically signed by: Jamaal Villafuerte [facility] ([phone]), at 07/22/2022 8:03 PM Medications: Scheduled Meds: [...] - DVT PPx: lovenox - Disposition: her computer terminal operator care facility - Family support: mother and her computer terminal operator care providers - Code Status: Attempt Cardiopulmonary Resuscitation - Inpatient IPI Certification I certify that I am a D-H credentialed attending provider with admitting privileges and that the patient meets or has met medical necessity to require an inpatient IPI level of care meeting a minimumof two midnights or is on the [facility] inpatient only procedure list (status C) due to: monitoring of fluid status given an inability to regulate fluid balance and the need for administration or restriction of fluids Ernesto Willingham MD TEAM/PAGER:[phone] Subjective/24hr events: Says yes to most questions. [...] future testing is required, contact the Microbiology Journeyman Welder. * No growth at 5 days. No [...] who have questions please contact the health housekeeper caregiver that requested your imaging first. Electronically signed by: Jamaal Villafuerte [facility] ([phone]), at 07/22/2022 8:03 PM Medications: Scheduled Meds: [...] BOTH LEGS performed by YAS OLIVER at [facility] OR ? ? PRO I&D, POST SPINE, LUMB/SACR/LUMBOSAC N/A 05/20/2014 @I & D, OPEN, DEEP ABSCESS, LUMBAR, SACRAL, LUMBOSACRAL performed by Freddy Isbell MD at [facility] OR ? ? [...] W/O FIXATION performed by YAS OLIVER at [facility] OR ??? PRO RECONSTRUC HIP SOCKET, RESEC FEM HEAD 08/15/2010 ??ACETABULOPLASTY (GIRDLESTONE), RESECTION FEMORAL HEAD, BILATERAL performed by YAS OLIVER [facility] OR ??? PRO REMOVAL DEEP IMPLANT 08/15/2010 REMOVAL IMPLANT, DEEP, BRUNO performed by YAS OLIVER at [facility] OR ??? PRO REMOVAL ERUPTED TOOTH WITH [...] Isbell MD at [facility] OR Medications: No current facility-administered [...] BOTH LEGS [facility] [...] W/O FIXATION performed by YAS OLIVER at [facility] OR ??? PRO RECONSTRUC HIP SOCKET, RESEC FEM HEAD 08/15/2010 ??ACETABULOPLASTY (GIRDLESTONE), RESECTION FEMORAL HEAD, BILATERAL performed by YAS OLIVER [facility] OR ??? PRO REMOVAL DEEP IMPLANT 08/15/2010 REMOVAL IMPLANT, DEEP, BRUNO performed by YAS OLIVER at [facility] OR ??? PRO REMOVAL ERUPTED TOOTH WITH ELEVATION OF MUCOPERIOSTEAL FLAP N/A 06/14/2018 SURGICAL EXTRACTIONS REQUIRING ELEVATION OF MUCOPERIOSTEAL FLAP AND REMOVAL OF BONE OR SECTION OF TOOTH (WRVU 1.09) performed by Keith Cotton MD at [facility] ??? PRO REMOVE INFUSN DEVICE/PUMP N/A 05/11/2014 REMOVAL OF SPINE INFUSION PUMP performed by Jamaal Samuel MD at [facility] [...] quadriplegia ID: 27 y.o. Female presents to [facility] with increased drainage from prior lumbar subcutaneous [...] BOTH LEGS performed by YAS OLIVER at [facility] OR ? [...] W/O FIXATION performed by YAS OLIVER at [facility] OR ??? PRO RECONSTRUC HIP SOCKET, RESEC FEM HEAD 08/15/2010 ??ACETABULOPLASTY (GIRDLESTONE), RESECTION FEMORAL HEAD, BILATERAL performed by YAS OLIVER [facility] OR ??? PRO REMOVAL DEEP IMPLANT 08/15/2010 REMOVAL IMPLANT, DEEP, BRUNO performed by YAS OLIVER at [facility] OR ??? PRO REMOVAL ERUPTED TOOTH WITH ELEVATION OF MUCOPERIOSTEAL FLAP N/A 06/14/2018 SURGICAL EXTRACTIONS REQUIRING ELEVATION OF MUCOPERIOSTEAL FLAP AND REMOVAL OF BONE OR SECTION OF TOOTH (WRVU 1.09) performed by Keith Cotton MD at [facility] ??? PRO REMOVE INFUSN DEVICE/PUMP N/A 05/11/2014 REMOVAL OF SPINE INFUSION PUMP performed by Jamaal Samuel MD [facility] Prior To Admission Medications: (Not in a hospital admission) Allergies: Allergies Allergen Reactions ??? Fluoxetine Other (See Comments) HIVES, HEART RACES ??? Tegaderm [Transparent Dressings] Itching and Dermatitis Please use [id number] ??? Penicillins Family History: Family History Problem [...] Administered Date(s) Administered ??? Influenza Vaccine (Novel) O8E8-38, Injectable 02/25/2009 ??? Influenza Vaccine w/Preservative, Split [...] external catheter placed. Will continue to monitor. Ironworker Helper Shop at bedside. * Samuel Comer MD - [...] who have questions please contact the health housekeeper caregiver that requested your imaging first. Electronically signed by: Jamaal Villafuerte [facility] ([phone]), at 07/22/2022 8:03 PM Recent Results (from [...] MD 07/22/22 Samuel Comer MD Resident 07/22/22 [id number] Associated attestation - Alek Tavares MD - [...] separate note. Brief Summary: History obtained from customer supply coordinator 27 y.o. female with history of traumatic [...] with plan. Yas John RN, BSN, LALA Gps Navigation Installer Pager [phone] * Plan of Care - Jimbo Willams [...] Name: Anderson Thorpe Decision Maker Contact Information: [phone] (M) Proxy Activated: Yes Functional status prior [...] Discharge: 08/01/2022 Yas John RN, BSN, LALA Gps Navigation Installer Pager [phone] * Plan of Care - Guerita Quinonez [...] for sensory deficits provided, if applicable: yes. housekeeper caregiver present * Plan of Care - Tasha [...] Masimo, bed alarm in use, purposeful rounding, health care legal assistant at bed side. * Care Management - [...] Name: Anderson Thorpe Decision Maker Contact Information: [phone] (M) Proxy Activated: Yes Functional status prior [...] Discharge: 07/29/2022 Yas John RN, BSN, LALA Gps Navigation Installer Pager [phone] * Plan of Care - Maren Barnard [...] for sensory deficits provided, if applicable: yes. housekeeper caregiver present * Plan of Care - Osman [...] [address] Appointed Guardian(s) Contact Information: [phone] (H) [phone] (M) Proxy Activated: Yes Guardianship paperwork on [...] device, hospital bed Home Address listed as: [address] [place] [address] Social & Family Supports: All names listed below confirmed with patient as current and correct Extended Emergency Contact Information Primary Emergency Contact: Anderson Thorpe [facility] Mobile Relation: Mother Secondary Emergency Contact: Curt Philippe [facility] Mobile Relation: Step parent Current Care [...] N/A ; Prescription Coverage: Yes Preferred Pharmacy: [facility] [address] [place] [address] [address] [facility] [address] [place] [address] [facility] Home Delivery - [place], [place] - [address] [facility] [address] [facility] [address] [facility] [address] - [place], [place] - [address] [facility] [address] [facility] [address] Status: Patient is a : No Primary Care Provider listed: Lorna Bal APRN [phone] Patient/Caregiver Goals of Treatment: return home with [...] care planning. Yas John RN, BSN, LALA Gps Navigation Installer Pager [phone] * Plan of Care - Osman Bowen RN - 07/24/2022 6:26 PM EDT OUTCOME EVALUATION NOTE: OUTCOME SUMMARY: Patient brightens with approach, on room air, health care legal assistant at bedside, IR placed 2 carmella drains [...] included. DEPARTMENT OF INFECTIOUS DISEASE & INTERNATIONAL [facility] INFECTIOUS DISEASE CONSULT NOTE Patient Name: Tana Caavzos PCP: Lorna Bal APRN PCP phone #: [phone] Reason for Admission: Lumbar subcutaneous abscesses with [...] to the ED today. Upon arrival to [facility] she was found afebrile, hemodynamically stable. Normal [...] the same area she presented returned to [facility] on 07/22, a repeated CT of the [...] following additions/modifications: Patient was recently admitted to [facility] in early June 2022, at which point [...] of purulent material. She was re-admitted to [facility] on 07/22 for ongoing management, at which [...] on the date of service on the [id number] encounter, chart review, clinical decision making, documentation, [...] Discuss with Dr. Christy Menchaca MD Pager: #[phone] 07/23/22 12:31 PM Future Appointments Date Time Provider Department Center 07/31/2022 1:00 PM Lilli Joy APRN [facility] 08/13/2022 11:30 AM Sergey Keane MD [facility] Associated attestation - Joe Harrison MD - 07/25/2022 12:47 PM EDT Recommend IR drainage. Try to avoid surgery. However, may need debridement and VAC placement. Joe Harrison MD [facility] Spine Surgery - Department of Orthopaedic Surgery Locator - Department of Orthopedic Surgery / Academics and Research National Sales Director Professor - [facility] 07/25/2022 * Consult Note - Oriana Rondon RP - 07/23/2022 1:09 AM EDT TelePharmacy Home Medication List Update for Medication Reconciliation 07/23/22 1:09 AM Tana Cavazos 1995 Allergies Allergen Reactions ??? Fluoxetine Other (See Comments) HIVES, HEART RACES ??? Tegaderm [Transparent Dressings] Itching and Dermatitis Please use [id number] ??? Penicillins ??? Person Interviewed: adult customer supply coordinator ??? Quality of Interview/accuracy of medication list: [...] list with information provided by patients adult customer supply coordinator, Fannie Villarreal. Fannie reports also using Interdry [...] PM EST Office [place] [address] Hollie Ambriz MD [facility] [address] [place] [address] documented as of this encounter Procedures Procedure [...] 5:47 AM EDT) Neutrophil % 48.3 % [facility] Neutrophil Absolute 2.57 1.70 - 6.10 x10(3)/[facility] LAB[facility] Lymph % 42.1 % [facility] Lymphocytes Abs 2.2 0.9 - 3.2 x10(3)/[facility] LABORATORY Monocyte % 6.4 % [facility] Monocyte Abs 0.3 0.3 - 0.9 x10(3)/[facility] LABORATORY Eos % 2.6 % [facility] Eosinophils Abs 0.1 0.0 - 0.4 x10(3)/[facility] LABORATORY Basophil % 0.4 % [facility] Baso Absolute 0.0 0.0 - 0.1 x10(3)/[facility] LABORATORY Immature Gran % 0.20 % [facility] Comment: Immature granulocytes(IG's)percentage and absolute count will include metamyelocytes, myelocytes, and promyelocytes. Blood smears from CBCs yielding IG's will be scanned manually for concordance. If this scan disagrees with the automated IG or if promyelocytes are noted, a manual differential will be performed. Immature Gran Absolute 0.01 0.00 - 0.04 x10(3)/[facility] LABORATORY Blood 08/01/2022 5:47 AM EDT 08/01/2022 6:03 AM EDT Narrative Resulting Agency Comment Spec In Lab Jody Collins MD [place] [address] * (ABNORMAL) Hemogram (08/01/2022 5:47 AM EDT) White Blood Cell 5.3 4.0 - 9.5 x10(3)/mc L [facility] Red Blood Cell 3.99(L) 4.00 - 5.21 x10(6)/mc L [facility] Hemoglobin 9.9(L) 11.7 - 15.5 g/dL [facility] Hematocrit 32.2(L) 35.7 - 45.8 % [facility] Mean Cell Volume 80.7(L) 82.6 - 94.4 fL [facility] Mean Cell Hemoglobin 24.8(L) 27.1 - 32.0 pg [facility] Mean Cell Hemoglobin Concentration 30.7(L) 31.7 - 35.0 g/dL [facility] Platelet 329 145 - 357 x10(3)/mc L [facility] RDW Standard Deviation 53.1(H) 37.0 - 46.0 fL [facility] RDW coefficient of variation 18.1(H) 11.5 - 14.1 % [facility] Mean Platelet Volume 9.3 7.6 - 12.9 fL [facility] NRBC% auto 0.0 % [facility] NRBC Absolute 0.000 0.000 - 0.000 x10(3)/mc L [facility] Blood 08/01/2022 5:47 AM EDT 08/01/2022 6:03 AM EDT Narrative Resulting Agency Comment Spec In Lab Jody Collins MD [place] [address] * Blood culture (07/31/2022 1:09 PM EDT) Blood Culture No growth at 5 days. [facility] Blood STRUCTURE OF LEFT HAND / Unknown 07/31/2022 1:09 PM EDT 07/31/2022 2:09 PM EDT Comment:#2 Narrative Resulting Agency Comment Spec In Lab Jody Collins MD MICROBIOLOGY - BLOOD ORDERABLES Performing Organization Address City/[facility]/ZIP Co de Phone Number [facility] [place] [address] * Blood culture (07/31/2022 1:04 PM EDT) Blood Culture No growth at 5 days. [facility] Blood STRUCTURE OF RIGHT HAND / Unknown 07/31/2022 1:04 PM EDT 07/31/2022 2:09 PM EDT Comment:#1 Narrative Resulting Agency Comment Spec In Lab Jody Collins MD MICROBIOLOGY - BLOOD ORDERABLES Performing Organization Address [facility] Co de Phone Number [facility] [place] [address] * Differential, Automated (07/31/2022 4:53 AM EDT) Neutrophil % 42.0 % [facility] Neutrophil Absolute 2.02 1.70 - 6.10 x10(3)/[facility] LAB[facility] Lymph % 47.6 % [facility] Lymphocytes Abs 2.3 0.9 - 3.2 x10(3)/[facility] Monocyte % 7.3 % [facility] Monocyte Abs 0.4 0.3 - 0.9 x10(3)/[facility]ORY Eos % 2.5 % [facility] Eosinophils Abs 0.1 0.0 - 0.4 x10(3)/[facility] Basophil % 0.4 % [facility] Baso Absolute 0.0 0.0 - 0.1 x10(3)/[facility] LABORATORY Immature Gran % 0.20 % [facility] Comment: Immature granulocytes(IG's)percentage and absolute count will include metamyelocytes, myelocytes, and promyelocytes. Blood smears from CBCs yielding IG's will be scanned manually for concordance. If this scan disagrees with the automated IG or if promyelocytes are noted, a manual differential will be performed. Immature Gran Absolute 0.01 0.00 - 0.04 x10(3)/[facility] Blood 07/31/2022 4:53 AM EDT 07/31/2022 5:07 AM EDT Narrative Resulting Agency Comment Spec In Lab Jody Collins MD HEMATOLOGY ORDERABLE S Performing Organization Address City/[facility]/ZIP Co de Phone Number [facility] [place] [address] * (ABNORMAL) Hemogram (07/31/2022 4:53 AM EDT) White Blood Cell 4.8 4.0 - 9.5 x10(3)/mc L [facility] Red Blood Cell 4.16 4.00 - 5.21 x10(6)/mc L [facility] Hemoglobin 10.3(L) 11.7 - 15.5 g/dL [facility] Hematocrit 33.3(L) 35.7 - 45.8 % [facility] Mean Cell Volume 80.0(L) 82.6 - 94.4 fL [facility] Mean Cell Hemoglobin 24.8(L) 27.1 - 32.0 pg [facility] Mean Cell Hemoglobin Concentration 30.9(L) 31.7 - 35.0 g/dL [facility] Platelet 302 145 - 357 x10(3)/mc L [facility] RDW Standard Deviation 53.7(H) 37.0 - 46.0 fL [facility] RDW coefficient of variation 18.5(H) 11.5 - 14.1 % [facility] Mean Platelet Volume 9.2 7.6 - 12.9 fL [facility] NRBC% auto 0.0 % [facility] NRBC Absolute 0.000 0.000 - 0.000 x10(3)/mc L [facility] Blood 07/31/2022 4:53 AM EDT 07/31/2022 5:07 AM EDT Narrative Resulting Agency Comment Spec In Lab Jody Collins MD HEMATOLOGY ORDERABLE S Performing Organization Address City/[facility]/ZIP Co de Phone Number [facility] [place] [address] * (ABNORMAL) CRP, acute inflammation (07/31/2022 4:53 AM EDT) C-Reactive Protein 28.8(H) <=4.9 mg/L [facility] Comment:result rechecked-KS Blood 07/31/2022 4:53 AM EDT 07/31/2022 5:07 AM EDT Narrative Resulting Agency Comment Spec In Lab Jody Collins MD CHEMISTRY ORDERABLES [facility] [place] [address] * (ABNORMAL) Basic Metabolic Panel (non-fasting) (07/31/2022 4:53 AM EDT) Glucose 88 65 - 199 mg/dL [facility] Comment:Diabetes: >=200 mg/d L plus symptoms Blood Urea Nitrogen 11 8 - 18 mg/dL [facility] Comment:result rechecked-KS Creatinine 0.29(L) 0.70 - 1.20 mg/dL [facility] Sodium 138 135 - 145 mmol/L [facility] Potassium 3.9 3.5 - 5.0 mmol/L [facility] Comment: Please note: ??Patients with WBC >100,000 may have falsely elevated Potassium levels. ??For accurate Potassium quantification in these patients send serum separator tube (gold top) for subsequent determinations. ??Contact the Clinical Chemistry Laboratory if there are any questions. Chloride 103 98 - 107 mmol/L [facility] Carbon Dioxide 24 22 - 31 mmol/L [facility] Anion Gap 11 5 - 15 mmol/L [facility] Calcium 9.3 8.5 - 10.5 mg/dL [facility] Est Glomerular Filtration Rate 148 >=60 mL/min/1. 73 m?? [facility] Comment: This patient's estimated GFR [...] In Lab Jody Collins MD CHEMISTRY ORDERABLES [facility] [place] [address] * Differential, Automated (07/30/2022 5:14 AM EDT) Neutrophil % 44.1 % [facility] Neutrophil Absolute 1.79 1.70 - 6.10 x10(3)/[facility] LABORATORY Lymph % 42.9 % [facility] Lymphocytes Abs 1.7 0.9 - 3.2 x10(3)/[facility] Monocyte % 9.1 % [facility] Monocyte Abs 0.4 0.3 - 0.9 x10(3)/[facility]OR[facility] Eos % 3.2 % [facility] Eosinophils Abs 0.1 0.0 - 0.4 x10(3)/[facility] Basophil % 0.5 % [facility] Baso Absolute 0.0 0.0 - 0.1 x10(3)/[facility] LABORATORY Immature Gran % 0.20 % [facility] Comment: Immature granulocytes(IG's)percentage and absolute count will include metamyelocytes, myelocytes, and promyelocytes. Blood smears from CBCs yielding IG's will be scanned manually for concordance. If this scan disagrees with the automated IG or if promyelocytes are noted, a manual differential will be performed. Immature Gran Absolute 0.01 0.00 - 0.04 x10(3)/[facility] LAB[facility]ORY Blood 07/30/2022 5:14 AM EDT 07/30/2022 5:38 AM EDT Narrative Resulting Agency Comment Spec In Lab Jody Collins MD HEMATOLOGY ORDERABLE S [facility] [place] [address] * (ABNORMAL) Hemogram (07/30/2022 5:14 AM EDT) White Blood Cell 4.1 4.0 - 9.5 x10(3)/ L [facility] Red Blood Cell 4.02 4.00 - 5.21 x10(6)/mc L [facility] Hemoglobin 9.9(L) 11.7 - 15.5 g/dL [facility] Hematocrit 31.7(L) 35.7 - 45.8 % [facility] Mean Cell Volume 78.9(L) 82.6 - 94.4 fL [facility] Mean Cell Hemoglobin 24.6(L) 27.1 - 32.0 pg [facility] Mean Cell Hemoglobin Concentration 31.2(L) 31.7 - 35.0 g/dL [facility] Platelet 305 145 - 357 x10(3)/mc L [facility] RDW Standard Deviation 53.1(H) 37.0 - 46.0 fL [facility] RDW coefficient of variation 18.5(H) 11.5 - 14.1 % [facility] Mean Platelet Volume 9.6 7.6 - 12.9 fL [facility] NRBC% auto 0.0 % [facility] NRBC Absolute 0.000 0.000 - 0.000 x10(3)/ L [facility] Blood 07/30/2022 5:14 AM EDT 07/30/2022 5:38 AM EDT Narrative Resulting Agency Comment Spec In Lab Jody Collins MD HEMATOLOGY ORDERABLE S [facility] [place] [address] * Blood culture (07/30/2022 5:14 AM EDT) Blood Culture No growth at 5 days. [facility] Blood STRUCTURE OF LEFT HAND / Unknown 07/30/2022 5:14 AM EDT 07/30/2022 6:38 AM EDT Narrative Resulting Agency Comment Spec In Lab Yury Saavedra MD MICROBIOLOGY - BLOO D ORDERABLES Performing Organization Address City/[facility]/ZIP Co de Phone Number [facility] [place] [address] * Phosphorus (07/28/2022 11:27 PM EDT) Pathologist [facility] Phosphorus 4.2 2.5 - 4.5 mg/dL [facility] Blood Venous Draw / Unknown 07/28/2022 11:27 PM EDT 07/28/2022 11:44 PM EDT Narrative Resulting Agency Comment Spec In Lab Shea Fox MD CHEMISTRY ORDERABLES Performing Organization Address [facility] Co de Phone Number [facility] [place] [address] * Magnesium (07/28/2022 11:27 PM EDT) Pathologist [facility] Magnesium 0.73 0.69 - 1.07 mmol/L [facility] Blood Venous Draw / Unknown 07/28/2022 11:27 PM EDT 07/28/2022 11:44 PM EDT Narrative Resulting Agency Comment Spec In Lab Shea Fox MD CHEMISTRY ORDERABLES Performing Organization Address [facility] Co de Phone Number [facility] [place] [address] * Differential, Automated (07/28/2022 11:27 PM EDT) Neutrophil % 51.2 % [facility] Neutrophil Absolute 2.52 1.70 - 6.10 x10(3)/[facility] LABORATORY Lymph % 37.3 % [facility] Lymphocytes Abs 1.8 0.9 - 3.2 x10(3)/[facility]ORY Monocyte % 9.1 % [facility] Monocyte Abs 0.4 0.3 - 0.9 x10(3)/[facility]OR[facility] Eos % 1.4 % [facility] Eosinophils Abs 0.1 0.0 - 0.4 x10(3)/[facility] Basophil % 0.6 % [facility] Baso Absolute 0.0 0.0 - 0.1 x10(3)/[facility] Immature Gran % 0.40 % [facility] Comment: Immature granulocytes(IG's)percentage and absolute count will include metamyelocytes, myelocytes, and promyelocytes. Blood smears from CBCs yielding IG's will be scanned manually for concordance. If this scan disagrees with the automated IG or if promyelocytes are noted, a manual differential will be performed. Immature Gran Absolute 0.02 0.00 - 0.04 x10(3)/[facility] LABORATORY Blood 07/28/2022 11:2 7 PM EDT 07/28/2022 11:34 PM EDT Narrative Resulting Agency Comment Spec In Lab Shea Fxo MD HEMATOLOGY ORDERABLE S Performing Organization Address City/State/[facility] Co de Phone Number [facility] [place] [address] * (ABNORMAL) Hemogram (07/28/2022 11:27 PM EDT) White Blood Cell 4.9 4.0 - 9.5 x10(3)/[facility] LABORATORY Red Blood Cell 4.06 4.00 - 5.21 x10(6)/[facility]ORATORY Hemoglobin 10.0(L) 11.7 - 15.5 g/dL [facility] Hematocrit 32.3(L) 35.7 - 45.8 % [facility] Mean Cell Volume 79.6(L) 82.6 - 94.4 fL [facility] Mean Cell Hemoglobin 24.6(L) 27.1 - 32.0 pg [facility] Mean Cell Hemoglobin Concentration 31.0(L) 31.7 - 35.0 g/dL [facility] Platelet 303 145 - 357 x10(3)/[facility]ORATORY RDW Standard Deviation 53.3(H) 37.0 - 46.0 fL [facility] RDW coefficient of variation 18.5(H) 11.5 - 14.1 % [facility] Mean Platelet Volume 9.2 7.6 - 12.9 fL [facility] NRBC% auto 0.0 % [facility] NRBC Absolute 0.000 0.000 - 0.000 x10(3)/mc L [facility] Blood 07/28/2022 11:2 7 PM EDT 07/28/2022 11:34 PM EDT Narrative Resulting Agency Comment Spec In Lab Shea Fox MD HEMATOLOGY ORDERABLE S [facility] [address] [place] [address] * (ABNORMAL) Blood culture (07/28/2022 11:27 PM EDT) Blood Culture Pseudomonas oryzihabitans isolated Isolate saved. If future testing is required, contact the Microbiology Journeyman Welder. (A) [facility] Gram Stain Aerobic Growth detected in aerobic bottle. Gram Negative Rods seen Results called to and read back by Guerita Quinonez RN ??07/30/22 02:02:27 (A) [facility] Organism Pseudomonas oryzihabitans(A) [facility] Organism Gram Negative Rods(A) [facility] Blood 07/28/2022 11:2 7 PM [...] MICROBIOLOGY - BLOOD ORDERABLES Performing Organization Address City/[facility] Co de Phone Number [facility] [place] [address] * Lactate, whole blood, send to lab ([place] (07/28/2022 11:27 PM EDT) Lactate WB 1.7 0.5 - 2.2 mmol/L [facility] Blood 07/28/2022 11:2 7 PM EDT 07/28/2022 11:33 PM EDT Narrative Resulting Agency Comment Spec In Lab Shea Fox MD CHEMISTRY ORDERABLES Performing Organization Address [facility] Co de Phone Number [facility] [place] [address] * Lipase (07/28/2022 11:27 PM EDT) Lipase 29 0 - 60 unit/L [facility] Blood 07/28/2022 11:2 7 PM EDT 07/28/2022 11:34 PM EDT Narrative Resulting Agency Comment Spec In Lab Shea Fox MD CHEMISTRY ORDERABLES Performing Organization Address [facility] Co de Phone Number [facility] [place] [address] * (ABNORMAL) Comprehensive metabolic panel (non-fasting) (07/28/2022 11:27 PM EDT) Glucose 98 65 - 199 mg/dL [facility] Comment:Diabetes: >=200 mg/d L plus symptoms Blood Urea Nitrogen 7(L) 8 - 18 mg/dL [facility] Creatinine 0.30(L) 0.70 - 1.20 mg/dL [facility] Sodium 138 135 - 145 mmol/L [facility] Potassium 3.9 3.5 - 5.0 mmol/L [facility] Comment: Please note: ??Patients with WBC >100,000 may have falsely elevated Potassium levels. ??For accurate Potassium quantification in these patients send serum separator tube (gold top) for subsequent determinations. ??Contact the Clinical Chemistry Laboratory if there are any questions. Chloride 102 98 - 107 mmol/L [facility] Carbon Dioxide 25 22 - 31 mmol/L [facility] Anion Gap 11 5 - 15 mmol/L [facility] Calcium 9.2 8.5 - 10.5 mg/dL [facility] Protein, Total 7.3 6.1 - 8.0 g/dL [facility] Albumin 3.6 3.2 - 5.2 g/dL [facility] Aspartate Aminotransferase 35(H) 0 - 30 unit/L [facility] Alanine Aminotransferase 42(H) 0 - 30 unit/L [facility] Alkaline Phosphatase 182(H) 35 - 105 unit/L [facility] Bilirubin, Total 0.2 0.2 - 1.3 mg/dL [facility] Est Glomerular Filtration Rate 147 >=60 mL/min/1. 73 m?? [facility] Comment: This patient's estimated GFR [...] In Lab Shea Fox MD CHEMISTRY ORDERABLES [facility] [place] [address] * (ABNORMAL) CRP, acute inflammation (07/28/2022 11:27 PM EDT) C-Reactive Protein 51.5(H) <=4.9 mg/L [facility] Blood 07/28/2022 11:2 7 PM EDT 07/28/2022 11:44 PM EDT Narrative Resulting Agency Comment Spec In Lab Jody Collins MD CHEMISTRY ORDERABLES Performing Organization Address [facility] Co de Phone Number [facility] [place] [address] * Urinalysis with reflex Culture (07/28/2022 11:20 PM EDT) Glucose, Urine Dipstick Negative Negative mg/dL [facility] Protein, Urine Dipstick Negative Negative mg/dL [facility] Bilirubin, Urine Dipstick Negative Negative mg/dL [facility] Comment: Clinical correlation required for positive Urine Bilirubin results as false positive may occur with some drugs and drug related products. If a false positive is suspected a serum total bilirubin should be considered if clinically indicated. Urobilinogen, Urine Dipstick Normal Normal mg/dL [facility] pH, Urn (dipstick) 7.5 5.0 - 8.0 [facility] Blood, Urine Dipstick Negative Negative mg/dL [facility] Ketone, Urine Dipstick Negative Negative mg/dL [facility] Nitrite, Urine Dipstick Negative Negative [facility] Leukocytes, Urine Dipstick Negative Negative mcL [facility] Appearance, Urine Dipstick Clear Clear [facility] Specific [place] Urine Automated 1.013 1.005 - 1.030 [facility] Color, Urine Dipstick Yellow Yellow [facility] Reflex to Culture No [facility] Straight Catheter Urine 07/28/2022 11:20 PM EDT 07/29/2022 12:04 AM EDT Narrative Resulting Agency Comment Spec In Lab Shea Fox MD URINE ORDERABLES Performing Organization Address City/[facility]/ZIP Co de Phone Number [facility] [place] [address] * Blood culture (07/28/2022 11:11 PM EDT) Blood Culture No growth at 5 days. [facility] Blood 07/28/2022 11:1 1 PM EDT 07/29/2022 12:17 AM EDT Comment:R hand Narrative Resulting Agency Comment Spec In Lab Shea Fox MD MICROBIOLOGY - BLOOD ORDERABLES [facility] [place] [address] * XR Chest One View (07/28/2022 8:11 [...] who have questions please contact the health housekeeper caregiver that requested your imaging first. ? Electronically signed by: FAINA GALLEGO MD, [facility] ??([phone]), at 07/28/2022 8:32 PM Narrative 07/28/2022 8:32 [...] patients who have questions please contactthe health housekeeper caregiver that requested your imaging first. Electronically signed by: FAINA GALLEGO MD, [facility]([phone]), at 07/28/2022 8:32 PM Jody Collins MD IMG DX ORDERABLES * (ABNORMAL) Respiratory Panel PCR (07/28/2022 8:01 PM EDT) Respiratory Panel Source PEDIATRIC PATHOLOGIST Swab [facility] Respiratory Panel PCR Positive(A) Negative [facility] Comment: Respiratory Panels are performed on the [employer]ackingPoint, using multiplexed PCR nucleic acid detection. ??Negative results do not preclude respiratory infection and should not be used as the sole basis for diagnosis, treatment or other management decisions. Adenovirus Not Detected Not Detected [facility] Coronavirus HKU1 Not Detected Not Detected [facility] Coronavirus NL63 Not Detected Not Detected [facility] Coronavirus 229E Not Detected Not Detected [facility] Coronavirus OC43 Not Detected Not Detected [facility] SARS-CoV-2 Not Detected Not Detected [facility] Comment: Testing for SARS-CoV-2 (Severe acute respiratory syndrome coronavirus 2) to aid in the diagnosis of COVID-19 is performed using the Bio[employer] Respiratory Panel 2.1 ([employer]) as authorized by the FDA issued Emergency Use Authorization (EUA). This panel also tests for multiple other viral and bacterial pathogens. This assay is intended for In-vitro Diagnostic (IVD) use with nasopharyngeal swabs in viral transport media. The assay is performed based on the instructions for use and additional guidance provided by the FDA. Testing is performed in laboratories within the [facility], each of which is certified under [...] fact sheets at the following FDA website: https://www.fda.gov/medical-devices/qgbhtopsdbn-lxwtbrx-6130-csely-20-jqlzxvruv- use-a pfbesnjwmcxoy-mxwmyev-ggounay/bmevn-lmrcoqhcqyn-jsod Human Metapneumovirus Not Detected Not Detected [facility] Human Rhinovirus/Enterov irus Detected(A) Not Detected [facility] Influenza A Not Detected Not Detected [facility] Influenza B Not Detected Not Detected [facility] Parainfluenza 1 Not Detected Not Detected [facility] Parainfluenza 2 Not Detected Not Detected [facility] Parainfluenza 3 Not Detected Not Detected [facility] Parainfluenza 4 Not Detected Not Detected [facility] Respiratory Syncytial Virus Not Detected Not Detected [facility] Chlamydophila pneumoniae Not Detected Not Detected [facility] Mycoplasma pneumoniae Not Detected Not Detected [facility] Nasopharyngeal Swab Other / Unknown 07/28 8:01 PM EDT 07/28/2022 8:29 PM EDT Comment:Symptoms->Fever / Re spiratory Symptoms Narrative Resulting Agency Comment Spec In Lab Shea Fox MD MICROBIOLOGY - [facility] ORDERABLES [facility] [place] [address] * COVID-19 PCR (07/28/2022 8:01 PM EDT) SARS-CoV-2 RNA (Rapid) Not Detected Not Detected [facility] Comment: This result should be [...] using the Simplexa COVID-19 Direct Assay by [employer] as authorized by the FDA issued Emergency [...] Department of Pathology and Laboratory Medicine at [facility], certified under the Clinical Laboratory Improvement [...] fact sheets at the following FDA website: https://www.fda.gov/medical-devices/cgcpqniuzpt-ghqfpam-9659-vhqpw-85-rtfuuossm- use-a lsmlcihipfvld-dgartgo-waveqkm/bhfrf-brdofftqdkc-jbju SARS-CoV-2 Source PEDIATRIC PATHOLOGIST Swab [facility] Nasopharyngeal Swab 07/29/19 8:01 PM EDT 07/28/2022 8:29 PM EDT Comment:Symptoms->Fever / Re spiratory Symptoms Narrative Resulting Agency Comment Spec In Lab Jody Collins MD MICROBIOLOGY - GENER AL ORDERABLES Performing Organization Address City/State/[facility] Co de Phone Number [facility] [place] [address] * CT Lumbar Spine w Contrast (07/28/2022 [...] who have questions please contact the health housekeeper caregiver that requested your imaging first. ? Electronically signed by: Bobo Keane MD, [facility] ([phone]), at 07/28/2022 1:12 PM Narrative 07/28/2022 1:12 PM EDT EXAMINATION: CT [...] patients who have questions please contactthe health housekeeper caregiver that requested your imaging first. Jody Collins MD IMG CT ORDERABLES * Differential, Automated (07/28/2022 5:02 AM EDT) Neutrophil % 52.9 % [facility] Neutrophil Absolute 2.31 1.70 - 6.10 x10(3)/[facility] Lymph % 34.3 % [facility] Lymphocytes Abs 1.5 0.9 - 3.2 x10(3)/[facility] LABOR[facility]ORY Monocyte % 11.2 % [facility] Monocyte Abs 0.5 0.3 - 0.9 x10(3)/[facility] LABOR[facility]ORY Eos % 1.1 % [facility] Eosinophils Abs 0.0 0.0 - 0.4 x10(3)/[facility] Basophil % 0.5 % [facility] Baso Absolute 0.0 0.0 - 0.1 x10(3)/[facility] LABORATORY Immature Gran % 0.00 % [facility] Comment: Immature granulocytes(IG's)percentage and absolute count will include metamyelocytes, myelocytes, and promyelocytes. Blood smears from CBCs yielding IG's will be scanned manually for concordance. If this scan disagrees with the automated IG or if promyelocytes are noted, a manual differential will be performed. Immature Gran Absolute 0.00 0.00 - 0.04 x10(3)/[facility] Blood 07/28/2022 5:02 AM EDT 07/28/2022 5:24 AM EDT Narrative Resulting Agency Comment Spec In Lab Jody Collins MD HEMATOLOGY ORDERABLE S [facility] [place] [address] * (ABNORMAL) Hemogram (07/28/2022 5:02 AM EDT) White Blood Cell 4.4 4.0 - 9.5 x10(3)/mc L [facility] Red Blood Cell 3.83(L) 4.00 - 5.21 x10(6)/mc L [facility] Hemoglobin 9.5(L) 11.7 - 15.5 g/dL [facility] Hematocrit 30.3(L) 35.7 - 45.8 % [facility] Mean Cell Volume 79.1(L) 82.6 - 94.4 fL [facility] Mean Cell Hemoglobin 24.8(L) 27.1 - 32.0 pg [facility] Mean Cell Hemoglobin Concentration 31.4(L) 31.7 - 35.0 g/dL [facility] Platelet 295 145 - 357 x10(3)/mc L [facility] RDW Standard Deviation 53.1(H) 37.0 - 46.0 fL [facility] RDW coefficient of variation 18.3(H) 11.5 - 14.1 % [facility] Mean Platelet Volume 9.5 7.6 - 12.9 fL [facility] NRBC% auto 0.0 % [facility] NRBC Absolute 0.000 0.000 - 0.000 x10(3)/mc L [facility] Blood 07/28/2022 5:02 AM EDT 07/28/2022 5:24 AM EDT Narrative Resulting Agency Comment Spec In Lab Jody Collins MD HEMATOLOGY ORDERABLE S [facility] [place] [address] * (ABNORMAL) CRP, acute inflammation (07/28/2022 5:02 AM EDT) C-Reactive Protein 33.1(H) <=4.9 mg/L [facility] Blood 07/28/2022 5:02 AM EDT 07/28/2022 5:24 AM EDT Narrative Resulting Agency Comment Spec In Lab Jody Collins MD CHEMISTRY ORDERABLES [facility] [place] [address] * (ABNORMAL) Basic Metabolic Panel (non-fasting) (07/28/2022 5:02 AM EDT) Glucose 91 65 - 199 mg/dL [facility] Comment:Diabetes: >=200 mg/d L plus symptoms Blood Urea Nitrogen 10 8 - 18 mg/dL [facility] Creatinine 0.28(L) 0.70 - 1.20 mg/dL [facility] Sodium 138 135 - 145 mmol/L [facility] Potassium 4.0 3.5 - 5.0 mmol/L [facility] Comment: Please note: ??Patients with WBC >100,000 may have falsely elevated Potassium levels. ??For accurate Potassium quantification in these patients send serum separator tube (gold top) for subsequent determinations. ??Contact the Clinical Chemistry Laboratory if there are any questions. Chloride 103 98 - 107 mmol/L [facility] Carbon Dioxide 25 22 - 31 mmol/L [facility] Anion Gap 10 5 - 15 mmol/L [facility] Calcium 8.8 8.5 - 10.5 mg/dL [facility] Est Glomerular Filtration Rate 150 >=60 mL/min/1. 73 m?? [facility] Comment: This patient's estimated GFR [...] Collins MD CHEMISTRY ORDERABLES Performing Organization Address City/[facility]/[place] [address] * Differential, Automated (07/27/2022 2:45 AM EDT) Neutrophil % 48.7 % [facility] Neutrophil Absolute 2.57 1.70 - 6.10 x10(3)/[facility] Lymph % 40.6 % [facility] Lymphocytes Abs 2.1 0.9 - 3.2 x10(3)/[facility] Monocyte % 8.2 % [facility] Monocyte Abs 0.4 0.3 - 0.9 x10(3)/[facility] Eos % 1.5 % [facility] Eosinophils Abs 0.1 0.0 - 0.4 x10(3)/[facility] Basophil % 0.8 % [facility] Baso Absolute 0.0 0.0 - 0.1 x10(3)/[facility] Immature Gran % 0.20 % [facility] Comment: Immature granulocytes(IG's)percentage and absolute count will include metamyelocytes, myelocytes, and promyelocytes. Blood smears from CBCs yielding IG's will be scanned manually for concordance. If this scan disagrees with the automated IG or if promyelocytes are noted, a manual differential will be performed. Immature Gran Absolute 0.01 0.00 - 0.04 x10(3)/[facility] Blood 07/27/2022 2:45 AM EDT 07/27/2022 2:52 AM EDT Narrative Resulting Agency Comment Spec In Lab Jody Collins MD HEMATOLOGY ORDERABLE S Performing Organization Address City/[facility]/ZIP Co de Phone Number [facility] [place] [address] * (ABNORMAL) Hemogram (07/27/2022 2:45 AM EDT) White Blood Cell 5.3 4.0 - 9.5 x10(3)/mc L [facility] Red Blood Cell 4.27 4.00 - 5.21 x10(6)/mc L [facility] Hemoglobin 10.4(L) 11.7 - 15.5 g/dL [facility] Hematocrit 33.6(L) 35.7 - 45.8 % [facility] Mean Cell Volume 78.7(L) 82.6 - 94.4 fL [facility] Mean Cell Hemoglobin 24.4(L) 27.1 - 32.0 pg [facility] Mean Cell Hemoglobin Concentration 31.0(L) 31.7 - 35.0 g/dL [facility] Platelet 350 145 - 357 x10(3)/mc L [facility] RDW Standard Deviation 52.4(H) 37.0 - 46.0 fL [facility] RDW coefficient of variation 18.3(H) 11.5 - 14.1 % [facility] Mean Platelet Volume 9.4 7.6 - 12.9 fL [facility] NRBC% auto 0.0 % [facility] NRBC Absolute 0.000 0.000 - 0.000 x10(3)/mc L [facility] Blood 07/27/2022 2:45 AM EDT 07/27/2022 2:52 AM EDT Narrative Resulting Agency Comment Spec In Lab Jody Collins MD HEMATOLOGY ORDERABLE S [facility] [place] [address] * Lactate, whole blood, send to lab ([place] (07/27/2022 2:45 AM EDT) Lactate WB 1.2 0.5 - 2.2 mmol/L [facility] Blood 07/27/2022 2:45 AM EDT 07/27/2022 2:50 AM EDT Narrative Resulting Agency Comment Spec In Lab Shea Fox MD CHEMISTRY ORDERABLES Performing Organization Address [facility] Co de Phone Number [facility] [place] [address] * Magnesium (07/27/2022 2:45 AM EDT) Magnesium 0.78 0.69 - 1.07 mmol/L [facility] Blood 07/27/2022 2:45 AM EDT 07/27/2022 2:52 AM EDT Narrative Resulting Agency Comment Spec In Lab Sharron Winters MD CHEMISTRY ORDERABLES Performing Organization Address [facility] de Phone Number [facility] [place] [address] * (ABNORMAL) CRP, acute inflammation (07/27/2022 2:45 AM EDT) C-Reactive Protein 27.0(H) <=4.9 mg/L [facility] Blood 07/27/2022 2:45 AM EDT 07/27/2022 2:52 AM EDT Narrative Resulting Agency Comment Spec In Lab Jody Collins MD CHEMISTRY ORDERABLES Performing Organization Address [facility] de Phone Number [facility] [place] [address] * (ABNORMAL) Sedimentation rate (07/27/2022 2:45 AM EDT) Sedimentation Rate Automated 105(H) 2 - 37 mm/hr [facility] Comment: Effective April 06, 2019 new capillary photometric technology has resulted in a change in reference ranges. It is recommended that each ESR result be reviewed with its own age appropriate reference range. Blood 07/27/2022 2:45 AM EDT 07/27/2022 2:52 AM EDT Narrative Resulting Agency Comment Spec In Lab Jody Collins MD HEMATOLOGY ORDERABLE S Performing Organization Address [facility] Co de Phone Number [facility] [place] [address] * (ABNORMAL) Basic Metabolic Panel (non-fasting) (07/27/2022 2:45 AM EDT) Glucose 105 65 - 199 mg/dL [facility] Comment:Diabetes: >=200 mg/d L plus symptoms Blood Urea Nitrogen 12 8 - 18 mg/dL [facility] Creatinine 0.35(L) 0.70 - 1.20 mg/dL [facility] Sodium 139 135 - 145 mmol/L [facility] Potassium 4.1 3.5 - 5.0 mmol/L [facility] Comment: Please note: ??Patients with WBC >100,000 may have falsely elevated Potassium levels. ??For accurate Potassium quantification in these patients send serum separator tube (gold top) for subsequent determinations. ??Contact the Clinical Chemistry Laboratory if there are any questions. Chloride 103 98 - 107 mmol/L [facility] Carbon Dioxide 25 22 - 31 mmol/L [facility] Anion Gap 11 5 - 15 mmol/L [facility] Calcium 9.3 8.5 - 10.5 mg/dL [facility] Est Glomerular Filtration Rate 142 >=60 mL/min/1. 73 m?? [facility] Comment: This patient's estimated GFR [...] Collins MD CHEMISTRY ORDERABLES Performing Organization Address [facility] Co de Phone Number [facility] [place] [address] * Differential, Automated (07/26/2022 4:46 AM EDT) Pathologist [facility] Neutrophil % 46.4 % [facility] Neutrophil Absolute 2.25 1.70 - 6.10 x10(3)/[facility] Lymph % 43.0 % [facility] Lymphocytes Abs 2.1 0.9 - 3.2 x10(3)/[facility] Monocyte % 8.0 % [facility] Monocyte Abs 0.4 0.3 - 0.9 x10(3)/[facility] Eos % 1.6 % [facility] Eosinophils Abs 0.1 0.0 - 0.4 x10(3)/[facility] Basophil % 0.8 % [facility] Baso Absolute 0.0 0.0 - 0.1 x10(3)/[facility] Immature Gran % 0.20 % [facility] Comment: Immature granulocytes(IG's)percentage and absolute count will include metamyelocytes, myelocytes, and promyelocytes. Blood smears from CBCs yielding IG's will be scanned manually for concordance. If this scan disagrees with the automated IG or if promyelocytes are noted, a manual differential will be performed. Immature Gran Absolute 0.01 0.00 - 0.04 x10(3)/[facility] Blood 07/26/2022 4:46 AM EDT 07/26/2022 5:23 AM EDT Narrative Resulting Agency Comment Spec In Lab Jody Collins MD HEMATOLOGY ORDERABLE S [facility] [place] [address] * (ABNORMAL) Hemogram (07/26/2022 4:46 AM EDT) Pathologist [facility] White Blood Cell 4.9 4.0 - 9.5 x10(3)/mc L [facility] Red Blood Cell 4.07 4.00 - 5.21 x10(6)/mc L [facility] Hemoglobin 10.1(L) 11.7 - 15.5 g/dL [facility] Hematocrit 31.9(L) 35.7 - 45.8 % [facility] Mean Cell Volume 78.4(L) 82.6 - 94.4 fL [facility] Mean Cell Hemoglobin 24.8(L) 27.1 - 32.0 pg [facility] Mean Cell Hemoglobin Concentration 31.7 31.7 - 35.0 g/dL [facility] Platelet 348 145 - 357 x10(3)/mc L [facility] RDW Standard Deviation 52.4(H) 37.0 - 46.0 fL [facility] RDW coefficient of variation 18.3(H) 11.5 - 14.1 % [facility] Mean Platelet Volume 9.6 7.6 - 12.9 fL [facility] NRBC% auto 0.0 % [facility] NRBC Absolute 0.000 0.000 - 0.000 x10(3)/mc L [facility] Blood 07/26/2022 4:46 AM EDT 07/26/2022 5:23 AM EDT Narrative Resulting Agency Comment Spec In Lab Jody Collins MD HEMATOLOGY ORDERABLE S Performing Organization Address City/[facility]/ZIP Co de Phone Number [facility] [place] [address] * (ABNORMAL) Sedimentation rate (07/26/2022 4:46 AM EDT) [facility] Sedimentation Rate Automated 102(H) 2 - 37 mm/hr [facility] Comment: Effective April 06, 2019 new capillary photometric technology has resulted in a change in reference ranges. It is recommended that each ESR result be reviewed with its own age appropriate reference range. Blood 07/26/2022 4:46 AM EDT 07/26/2022 5:23 AM EDT Narrative Resulting Agency Comment Spec In Lab Jody Collins MD HEMATOLOGY ORDERABLE S [facility] [place] [address] * (ABNORMAL) CRP, acute inflammation (07/26/2022 4:46 AM EDT) C-Reactive Protein 40.5(H) <=4.9 mg/L [facility] Blood 07/26/2022 4:46 AM EDT 07/26/2022 5:23 AM EDT Narrative Resulting Agency Comment Spec In Lab Jody Collins MD CHEMISTRY ORDERABLES [facility] [place] [address] * (ABNORMAL) Basic Metabolic Panel (non-fasting) (07/26/2022 4:46 AM EDT) Glucose 100 65 - 199 mg/dL [facility] Comment:Diabetes: >=200 mg/d L plus symptoms Blood Urea Nitrogen 13 8 - 18 mg/dL [facility] Creatinine 0.25(L) 0.70 - 1.20 mg/dL [facility] Sodium 139 135 - 145 mmol/L [facility] Potassium 3.8 3.5 - 5.0 mmol/L [facility] Comment: Please note: ??Patients with WBC >100,000 may have falsely elevated Potassium levels. ??For accurate Potassium quantification in these patients send serum separator tube (gold top) for subsequent determinations. ??Contact the Clinical Chemistry Laboratory if there are any questions. Chloride 103 98 - 107 mmol/L [facility] Carbon Dioxide 23 22 - 31 mmol/L [facility] Anion Gap 13 5 - 15 mmol/L [facility] Calcium 9.4 8.5 - 10.5 mg/dL [facility] Est Glomerular Filtration Rate 154 >=60 mL/min/1. 73 m?? [facility] Comment: This patient's estimated GFR [...] Collins MD CHEMISTRY ORDERABLES Performing Organization Address [facility] Co de Phone Number [facility] [place] [address] * EKG 12 Lead (07/25/2022 12:42 PM EDT) Pathologist [facility] Ventricular rate 106 BPM MUSE SYSTEM Atrial Rate 106 BPM MUSE SYSTEM P-R Interval 120 ms MUSE SYSTEM QRS Duration 74 ms MUSE SYSTEM Q-T Interval 328 ms MUSE SYSTEM QTC Calculated (Bezet) 435 ms MUSE SYSTEM Calculated P [place] 22 degrees MUSE SYSTEM Calculated R [place] 7 degrees MUSE SYSTEM Calculated T [place] 25 degrees MUSE SYSTEM INTERPRETATION Sinus tachycardia Possible Inferior infarct (cited on or before 07-JUL-2022) Abnormal ECG When compared with ECG of 07-JUL-2022 11:44, Nonspecific T wave abnormality no longer evident in Anterior leads Confirmed by MD Chowdary Daniel ([id number]) on 08/07/2022 5:45:44 PM MUSE SYSTEM 07/25/2022 12:4 2 PM EDT 08/07/2022 5:45 PM EDT Jody Collins MD ECG ORDERABLES Performing Organization Address [facility] Co de Phone Number MUSE SYSTEM * Differential, Automated (07/25/2022 4:37 AM EDT) Pathologist [facility] Neutrophil % 54.4 % [facility] Neutrophil Absolute 2.66 1.70 - 6.10 x10(3)/[facility] Lymph % 35.0 % [facility] Lymphocytes Abs 1.7 0.9 - 3.2 x10(3)/[facility] Monocyte % 8.6 % [facility] Monocyte Abs 0.4 0.3 - 0.9 x10(3)/[facility] Eos % 1.0 % [facility] Eosinophils Abs 0.0 0.0 - 0.4 x10(3)/[facility] Basophil % 0.6 % [facility] Baso Absolute 0.0 0.0 - 0.1 x10(3)/[facility] Immature Gran % 0.40 % [facility] Comment: Immature granulocytes(IG's)percentage and absolute count will include metamyelocytes, myelocytes, and promyelocytes. Blood smears from CBCs yielding IG's will be scanned manually for concordance. If this scan disagrees with the automated IG or if promyelocytes are noted, a manual differential will be performed. Immature Gran Absolute 0.02 0.00 - 0.04 x10(3)/[facility] Blood 07/25/2022 4:37 AM EDT 07/25/2022 4:50 AM EDT Narrative Resulting Agency Comment Spec In Lab Eddi Vázquez MD HEMATOLOGY ORDERABLE S Performing Organization Address City/State/[facility] Co de Phone Number [facility] [place] [address] * (ABNORMAL) Hemogram (07/25/2022 4:37 AM EDT) White Blood Cell 4.9 4.0 - 9.5 x10(3)/mc L [facility] Red Blood Cell 4.16 4.00 - 5.21 x10(6)/mc L [facility] Hemoglobin 10.3(L) 11.7 - 15.5 g/dL [facility] Hematocrit 32.6(L) 35.7 - 45.8 % [facility] Mean Cell Volume 78.4(L) 82.6 - 94.4 fL [facility] Mean Cell Hemoglobin 24.8(L) 27.1 - 32.0 pg [facility] Mean Cell Hemoglobin Concentration 31.6(L) 31.7 - 35.0 g/dL [facility] Platelet 357 145 - 357 x10(3)/mc L [facility] RDW Standard Deviation 52.5(H) 37.0 - 46.0 fL [facility] RDW coefficient of variation 18.5(H) 11.5 - 14.1 % [facility] Mean Platelet Volume 9.6 7.6 - 12.9 fL [facility] NRBC% auto 0.0 % [facility] NRBC Absolute 0.000 0.000 - 0.000 x10(3)/mc L [facility] Blood 07/25/2022 4:37 AM EDT 07/25/2022 4:50 AM EDT Narrative Resulting Agency Comment Spec In Lab Eddi Vázquez MD HEMATOLOGY ORDERABLE S Performing Organization Address City/State/[facility] Co de Phone Number [facility] [place] [address] * (ABNORMAL) Basic Metabolic Panel (non-fasting) (07/25/2022 4:37 AM EDT) Glucose 99 65 - 199 mg/dL [facility] Comment:Diabetes: >=200 mg/d L plus symptoms Blood Urea Nitrogen 13 8 - 18 mg/dL [facility] Creatinine 0.49(L) 0.70 - 1.20 mg/dL [facility] Sodium 138 135 - 145 mmol/L [facility] Potassium 3.9 3.5 - 5.0 mmol/L [facility] Comment: Please note: ??Patients with WBC >100,000 may have falsely elevated Potassium levels. ??For accurate Potassium quantification in these patients send serum separator tube (gold top) for subsequent determinations. ??Contact the Clinical Chemistry Laboratory if there are any questions. Chloride 105 98 - 107 mmol/L [facility] Carbon Dioxide 23 22 - 31 mmol/L [facility] Anion Gap 10 5 - 15 mmol/L [facility] Calcium 8.9 8.5 - 10.5 mg/dL [facility] Est Glomerular Filtration Rate 131 >=60 mL/min/1. 73 m?? [facility] Comment: This patient's estimated GFR [...] In Lab Eddi Vázquez MD [place] [address] * IR All Drainage Procedures (07/24/2022 4:02 PM EDT) Anatomical Region Laterality Modality X-Ray Angiograph y Impressions 07/25/2022 8:08 AM EDT Percutaneous placement of a 10 [place] drainage catheter into subcutaneous collection adjacent to RIGHT SI joint screw, yielding 5 mL of bloody fluid. Percutaneous placement of a 8 [place] drainage catheter into subcutaneous collection adjacent to [...] who have questions please contact the health housekeeper caregiver that requested your imaging first. ? Electronically signed by: Anurag Kmuar MD, [facility] ([phone]), at 07/25/2022 8:08 AM Narrative 07/25/2022 8:08 [...] complications. IMPRESSION Percutaneous placement of a 10 [place] drainage catheter intosubcutaneous collection adjacent to RIGHT SI joint screw, yielding 5 mL of bloodyfluid. Percutaneous placement of a 8 [place] drainage catheter into subcutaneous collection adjacent to [...] patients who have questions please contactthe health housekeeper caregiver that requested your imaging first. Electronically signed by: Anurag Kumar MD, [facility]([phone]), at 07/25/2022 8:08 AM Ernesto Willingham MD IMG IR ORDERABLES * Anaerobic Culture (07/24/2022 3:47 PM EDT) Anaerobic Culture No anaerobic organisms isolated [facility] Fluid 07/24/2022 3:47 PM EDT 07/24/2022 4:43 PM EDT Comment:SI/L5 Narrative Resulting Agency Comment Spec In Lab Anurag Kumar MD MICROBIOLOGY - GEN ERAL ORDERABLES [facility] [place] [address] * Crystal Exam Body Fluid Other (07/24/2022 3:47 PM EDT) Crystal BF Type Other [facility] Comment: Interpret with caution due to questionable sample integrity caused by sample age. Results may be inaccurate due to presence of many degenerated cells. Crystal Exam, Fld None Seen [facility] Other 07/24/2022 3:47 PM EDT 07/24/2022 4:31 PM EDT Narrative Resulting Agency Comment Spec In Lab Anurag Kumar MD BODY FLUIDS AND ST OOLS ORDERABLES [facility] [place] [address] * Cell Count Body Fluid Other (07/24/2022 3:47 PM EDT) Body Fluid Source Other [facility] Comment: Interpret with caution due to questionable sample integrity caused by sample age. Results may be inaccurate due to presence of many degenerated cells. Called by: [facility], Read back by: carlin alejo, Date/Time:07/24/22 17:51. Color, Fld Red [facility] Comment: Interpret with caution due to questionable sample integrity caused by sample age. Results may be inaccurate due to presence of many degenerated cells. Appearance, Fld Cloudy [facility] Comment: Interpret with caution due to questionable sample integrity caused by sample age. Results may be inaccurate due to presence of many degenerated cells. WBC Count, Fld Not Perf [facility] Comment: Interpret with caution due to questionable sample integrity caused by sample age. Results may be inaccurate due to presence of many degenerated cells. All body fluid results should always be interpreted in light of the total clinical presentation of the patient, including clinical history, data from additional tests and other appropriate information. Polymorphonuclear cells BF % Not Perf [facility] Comment: Interpret with caution due to questionable sample integrity caused by sample age. Results may be inaccurate due to presence of many degenerated cells. Polymorphonuclear cell percent and absolute values may contain Neutrophils, Eosinophils, and Basophils. Body fluid smear will be scanned manually for concordance. Mononuclear cells BF % Not Perf [facility] Comment: Interpret with caution due to questionable sample integrity caused by sample age. Results may be inaccurate due to presence of many degenerated cells. Mononuclear cell percent and absolute values may contain Lymphocytes and Monocytes. Body fluid smear will be scanned manually for concordance. Polymorphonuclear cells BF ABS Not Perf [facility] Comment: Interpret with caution due to questionable sample integrity caused by sample age. Results may be inaccurate due to presence of many degenerated cells. Polymorphonuclear cell percent and absolute values may contain Neutrophils, Eosinophils, and Basophils. Body fluid smear will be scanned manually for concordance. Mononuclear cells BF ABS Not Perf [facility] Comment: Interpret with caution due [...] Anurag Kumar MD B[facility] FLUIDS [facility] [place] [address] * Abscess/Wound Aspirate Culture Abscess; Pelvic (07/24/2022 3:47 PM EDT) Abscess/Wound Aspirate Culture No growth [facility] Gram Stain Many Neutrophils seen No microorganisms seen. [facility] Abscess [place] / Unknown 07/24/2022 3:47 PM EDT 07/24/2022 4:43 PM EDT Comment:SI/L5 Narrative Resulting Agency Comment Spec In Lab Anurag Kumar MD MICROBIOLOGY - GEN ERAL ORDERABLES Performing Organization Address City/[facility]/ZIP Co de Phone Number [facility] [place] [address] * AFB culture (07/24/2022 3:22 PM EDT) Acid Fast Bacilli Culture No Acid Fast Bacilli isolated [facility] Acid Fast Stain No Acid Fast Bacilli seen [facility] Vertebra LUMBAR SPINE STRUCTURE / Unknown 07/24/2022 3:22 PM EDT 07/27/2022 12:32 PM EDT Comment:LUMBAR ABSCESS Narrative Resulting Agency Comment Spec In Lab Jody Collins MD MICROBIOLOGY - GENER AL ORDERABLES Performing Organization Address [facility] Co de Phone Number [facility] [place] [address] * Calcofluor White Stain (07/24/2022 3:22 PM EDT) Calcofluor Stain Calcofluor White Preparation: Negative [facility] Abscess LUMBAR SPINE STRUCTURE / Unknown 07/24/2022 3:22 PM EDT 07/27/2022 12:30 PM EDT Comment:Lumbar abscess Narrative Resulting Agency Comment Spec In Lab Jody Collins MD MICROBIOLOGY - GENER AL ORDERABLES Performing Organization Address City/[facility] Co de Phone Number [facility] [place] [address] * Fungus culture (07/24/2022 3:22 PM EDT) Fungus Culture No Fungus isolated [facility] Abscess LUMBAR SPINE STRUCTURE / Unknown 07/24/2022 3:22 PM EDT 07/27/2022 12:30 PM EDT Comment:Lumbar abscess Narrative Resulting Agency Comment Spec In Lab Jody Collins MD MICROBIOLOGY - GENER AL ORDERABLES Performing Organization Address [facility] Co de Phone Number [facility] [place] [address] * Anaerobic Culture (07/24/2022 3:22 PM EDT) Anaerobic Culture No anaerobic organisms isolated [facility] Fluid 07/24/2022 3:22 PM EDT 07/24/2022 4:44 PM EDT Comment:Lumbar abscess Narrative Resulting Agency Comment Spec In Lab Mal Menchaca MD MICROBIOLOGY - GENER AL ORDERABLES Performing Organization Address [facility] Co de Phone Number [facility] [place] [address] * Body Fluid Culture, Aerobic (07/24/2022 3:22 PM EDT) Body Fluid Culture No growth [facility] Gram Stain Few Neutrophils seen No microorganisms seen. [facility] Fluid 07/24/2022 3:22 PM EDT 07/24/2022 4:44 PM EDT Comment:Lumbar abscess Narrative Resulting Agency Comment Spec In Lab Mal Menchaca MD MICROBIOLOGY - GENER AL ORDERABLES Performing Organization Address City/[facility] Co de Phone Number [facility] [place] [address] * Crystal Exam Body Fluid Other (07/24/2022 3:22 PM EDT) Crystal BF Type Other [facility] Comment: Interpret with caution due to questionable sample integrity caused by sample age. Results may be inaccurate due to presence of many degenerated cells. Crystal Exam, Fld None Seen [facility] Other 07/24/2022 3:22 PM EDT 07/24/2022 4:34 PM EDT Narrative Resulting Agency Comment Spec In Lab Ernesto Willingham MD BODY FLUIDS AND [place] ORDERABLES [facility] [place] [address] * Cell Count Body Fluid Other (07/24/2022 3:22 PM EDT) Body Fluid Source Other [facility] Comment: Interpret with caution due to questionable sample integrity caused by sample age. Results may be inaccurate due to presence of many degenerated cells. Called by: millicent, Read back by: carlin alejo, Date/Time:07/24/22 17:51. Color, Fld Red [facility] Comment: Interpret with caution due to questionable sample integrity caused by sample age. Results may be inaccurate due to presence of many degenerated cells. Appearance, Fld Cloudy [facility] Comment: Interpret with caution due to questionable sample integrity caused by sample age. Results may be inaccurate due to presence of many degenerated cells. WBC Count, Fld Not Perf [facility] Comment: Interpret with caution due to questionable sample integrity caused by sample age. Results may be inaccurate due to presence of many degenerated cells. All body fluid results should always be interpreted in light of the total clinical presentation of the patient, including clinical history, data from additional tests and other appropriate information. Polymorphonuclear cells BF % Not Perf [facility] Comment: Interpret with caution due to questionable sample integrity caused by sample age. Results may be inaccurate due to presence of many degenerated cells. Polymorphonuclear cell percent and absolute values may contain Neutrophils, Eosinophils, and Basophils. Body fluid smear will be scanned manually for concordance. Mononuclear cells BF % Not Perf [facility] Comment: Interpret with caution due to questionable sample integrity caused by sample age. Results may be inaccurate due to presence of many degenerated cells. Mononuclear cell percent and absolute values may contain Lymphocytes and Monocytes. Body fluid smear will be scanned manually for concordance. Polymorphonuclear cells BF ABS Not Perf [facility] Comment: Interpret with caution due to questionable sample integrity caused by sample age. Results may be inaccurate due to presence of many degenerated cells. Polymorphonuclear cell percent and absolute values may contain Neutrophils, Eosinophils, and Basophils. Body fluid smear will be scanned manually for concordance. Mononuclear cells BF ABS Not Perf [facility] Comment: Interpret with caution due [...] MD BODY FLUIDS AND STOO LS ORDERABLES [facility] [place] [address] * Differential, Automated (07/24/2022 5:25 AM EDT) Neutrophil % 46.6 % [facility] Neutrophil Absolute 2.04 1.70 - 6.10 x10(3)/[facility] Lymph % 42.9 % [facility] Lymphocytes Abs 1.9 0.9 - 3.2 x10(3)/[facility] Monocyte % 8.0 % [facility] Monocyte Abs 0.4 0.3 - 0.9 x10(3)/[facility] Eos % 1.8 % [facility] Eosinophils Abs 0.1 0.0 - 0.4 x10(3)/[facility] Basophil % 0.7 % [facility] Baso Absolute 0.0 0.0 - 0.1 x10(3)/[facility] Immature Gran % 0.00 % [facility] Comment: Immature granulocytes(IG's)percentage and absolute count will include metamyelocytes, myelocytes, and promyelocytes. Blood smears from CBCs yielding IG's will be scanned manually for concordance. If this scan disagrees with the automated IG or if promyelocytes are noted, a manual differential will be performed. Immature Gran Absolute 0.00 0.00 - 0.04 x10(3)/[facility] Blood 07/24/2022 5:25 AM EDT 07/24/2022 5:57 AM EDT Narrative Resulting Agency Comment Spec In Lab Eddi Vázquez MD HEMATOLOGY ORDERABLE S [facility] [place] [address] * (ABNORMAL) Hemogram (07/24/2022 5:25 AM EDT) White Blood Cell 4.4 4.0 - 9.5 x10(3)/mc L [facility] Red Blood Cell 3.92(L) 4.00 - 5.21 x10(6)/mc L [facility] Hemoglobin 9.6(L) 11.7 - 15.5 g/dL [facility] Hematocrit 31.4(L) 35.7 - 45.8 % [facility] Mean Cell Volume 80.1(L) 82.6 - 94.4 fL [facility] Mean Cell Hemoglobin 24.5(L) 27.1 - 32.0 pg [facility] Mean Cell Hemoglobin Concentration 30.6(L) 31.7 - 35.0 g/dL [facility] Platelet 343 145 - 357 x10(3)/mc L [facility] RDW Standard Deviation 54.7(H) 37.0 - 46.0 fL [facility] RDW coefficient of variation 18.7(H) 11.5 - 14.1 % [facility] Mean Platelet Volume 9.5 7.6 - 12.9 fL [facility] NRBC% auto 0.0 % [facility] NRBC Absolute 0.000 0.000 - 0.000 x10(3)/ L [facility] Blood 07/24/2022 5:25 AM EDT 07/24/2022 5:57 AM EDT Narrative Resulting Agency Comment Spec In Lab Eddi Vázquez MD HEMATOLOGY ORDERABLE S [facility] [place] [address] * (ABNORMAL) Basic Metabolic Panel (non-fasting) (07/24/2022 5:25 AM EDT) Glucose 89 65 - 199 mg/dL [facility] Comment:Diabetes: >=200 mg/d L plus symptoms Blood Urea Nitrogen 11 8 - 18 mg/dL [facility] Creatinine 0.34(L) 0.70 - 1.20 mg/dL [facility] Sodium 138 135 - 145 mmol/L [facility] Potassium 3.9 3.5 - 5.0 mmol/L [facility] Comment: Please note: ??Patients with WBC >100,000 may have falsely elevated Potassium levels. ??For accurate Potassium quantification in these patients send serum separator tube (gold top) for subsequent determinations. ??Contact the Clinical Chemistry Laboratory if there are any questions. Chloride 104 98 - 107 mmol/L [facility] Carbon Dioxide 23 22 - 31 mmol/L [facility] Anion Gap 11 5 - 15 mmol/L [facility] Calcium 9.1 8.5 - 10.5 mg/dL [facility] Est Glomerular Filtration Rate 143 >=60 mL/min/1. 73 m?? [facility] Comment: This patient's estimated GFR [...] In Lab Eddi Vázquez MD CHEMISTRY ORDERABLES [facility] [place] [address] * Differential, Automated (07/23/2022 3:00 AM EDT) Neutrophil % 50.7 % [facility] Neutrophil Absolute 3.15 1.70 - 6.10 x10(3)/mcL [facility] Lymph % 40.3 % [facility] Lymphocytes Abs 2.5 0.9 - 3.2 x10(3)/[facility] Monocyte % 7.2 % [facility] Monocyte Abs 0.4 0.3 - 0.9 x10(3)/[facility] Eos % 1.1 % [facility] Eosinophils Abs 0.1 0.0 - 0.4 x10(3)/[facility] Basophil % 0.5 % [facility] Baso Absolute 0.0 0.0 - 0.1 x10(3)/[facility] Immature Gran % 0.20 % [facility] Comment: Immature granulocytes(IG's)percentage and absolute count will include metamyelocytes, myelocytes, and promyelocytes. Blood smears from CBCs yielding IG's will be scanned manually for concordance. If this scan disagrees with the automated IG or if promyelocytes are noted, a manual differential will be performed. Immature Gran Absolute 0.01 0.00 - 0.04 x10(3)/[facility] Blood 07/23/2022 3:00 AM EDT 07/23/2022 3:02 AM EDT Narrative Resulting Agency Comment Spec In Lab Eddi Vázquez MD HEMATOLOGY ORDERABLE S Performing Organization Address City/State/[facility] Co de Phone Number [facility] [place] [address] * (ABNORMAL) Hemogram (07/23/2022 3:00 AM EDT) White Blood Cell 6.2 4.0 - 9.5 x10(3)/mc L [facility] Red Blood Cell 4.19 4.00 - 5.21 x10(6)/mc L [facility] Hemoglobin 10.5(L) 11.7 - 15.5 g/dL [facility] Hematocrit 32.7(L) 35.7 - 45.8 % [facility] Mean Cell Volume 78.0(L) 82.6 - 94.4 fL [facility] Mean Cell Hemoglobin 25.1(L) 27.1 - 32.0 pg [facility] Mean Cell Hemoglobin Concentration 32.1 31.7 - 35.0 g/dL [facility] Platelet 364(H) 145 - 357 x10(3)/mc L [facility] RDW Standard Deviation 53.3(H) 37.0 - 46.0 fL [facility] RDW coefficient of variation 18.6(H) 11.5 - 14.1 % [facility] Mean Platelet Volume 9.0 7.6 - 12.9 fL [facility] NRBC% auto 0.0 % [facility] NRBC Absolute 0.000 0.000 - 0.000 x10(3)/mc L [facility] Blood 07/23/2022 3:00 AM EDT 07/23/2022 3:02 AM EDT Narrative Resulting Agency Comment Spec In Lab Eddi Vázquez MD HEMATOLOGY ORDERABLE S [facility] [place] [address] * (ABNORMAL) Basic Metabolic Panel (non-fasting) (07/23/2022 3:00 AM EDT) Glucose 101 65 - 199 mg/dL [facility] Comment:Diabetes: >=200 mg/d L plus symptoms Blood Urea Nitrogen 9 8 - 18 mg/dL [facility] Creatinine 0.31(L) 0.70 - 1.20 mg/dL [facility] Sodium 141 135 - 145 mmol/L [facility] Potassium 3.6 3.5 - 5.0 mmol/L [facility] Comment: Please note: ??Patients with WBC >100,000 may have falsely elevated Potassium levels. ??For accurate Potassium quantification in these patients send serum separator tube (gold top) for subsequent determinations. ??Contact the Clinical Chemistry Laboratory if there are any questions. Chloride 105 98 - 107 mmol/L [facility] Carbon Dioxide 23 22 - 31 mmol/L [facility] Anion Gap 13 5 - 15 mmol/L [facility] Calcium 8.9 8.5 - 10.5 mg/dL [facility] Est Glomerular Filtration Rate 146 >=60 mL/min/1. 73 m?? [facility] Comment: This patient's estimated GFR [...] Vázquez MD CHEMISTRY ORDERABLES Performing Organization Address [facility] Co de Phone Number [facility] [place] [address] * Blood culture (07/22/2022 10:47 PM EDT) Blood Culture No growth at 5 days. [facility] Blood VENOUS CATHETER / Unknown 07/22/2022 10:47 PM EDT 07/22/2022 10:48 PM EDT Comment:add-on Narrative Resulting Agency Comment Spec In Lab Samuel Comer MD MICROBIOLOGY - BLOOD ORDERABLES Performing Organization Address [facility] Co de Phone Number [facility] [place] [address] * Anaerobic Culture (07/22/2022 9:30 PM EDT) Anaerobic Culture No anaerobic organisms isolated [facility] Fluid 07/22/2022 9:30 PM EDT 07/22/2022 9:45 PM EDT Narrative Resulting Agency Comment Spec In Lab Samuel Comer MD MICROBIOLOGY - GENER AL ORDERABLES Performing Organization Address [facility] Co de Phone Number [facility] [place] [address] * Body Fluid Culture, Aerobic (07/22/2022 9:30 PM EDT) Body Fluid Culture No growth to date. [facility] Gram Stain Many Neutrophils seen No microorganisms seen. [facility] Fluid 07/22/2022 9:30 PM EDT 07/22/2022 9:45 PM EDT Narrative Resulting Agency Comment Spec In Lab Samuel Comer MD MICROBIOLOGY - GENER AL ORDERABLES Performing Organization Address [facility] Co de Phone Number [facility] [place] [address] * Cell Count Body Fluid Other (07/22/2022 9:30 PM EDT) Body Fluid Source Other [facility] Color, Fld Red [facility] Appearance, Fld Clotted [facility] WBC Count, Fld Clotted [facility] Comment: Called by: CHARLEY, Read back by: Yarelis Galdamez, Date/Time:07/22/22 21:56. All body fluid results should always be interpreted in light of the total clinical presentation of the patient, including clinical history, data from additional tests and other appropriate information. Polymorphonuclear cells BF % Clotted % [facility] Comment: Polymorphonuclear cell percent and absolute values may contain Neutrophils, Eosinophils, and Basophils. Body fluid smear will be scanned manually for concordance. Mononuclear cells BF % Clotted % [facility] Comment: Mononuclear cell percent and absolute values may contain Lymphocytes and Monocytes. Body fluid smear will be scanned manually for concordance. Polymorphonuclear cells BF ABS Clotted /[facility] Comment: Polymorphonuclear cell percent and absolute values may contain Neutrophils, Eosinophils, and Basophils. Body fluid smear will be scanned manually for concordance. Mononuclear cells BF ABS Clotted /[facility] Comment: Mononuclear cell percent and absolute values may contain Lymphocytes and Monocytes. Body fluid smear will be scanned manually for concordance. Other 07/22/2022 9:30 PM EDT 07/22/2022 9:38 PM EDT Narrative Resulting Agency Comment Spec In Lab Alek Tavares MD BODY FLUIDS AND STOO LS ORDERABLES Performing Organization Address City/[facility]/ZIP Co de Phone Number [facility] [place] [address] * Blood culture (07/22/2022 9:15 PM EDT) Blood Culture No growth at 5 days. [facility] Blood 07/22/2022 9:15 PM EDT 07/22/2022 9:29 PM EDT Comment:L AC Narrative Resulting Agency Comment Spec In Lab Alek Tavares MD MICROBIOLOGY - BLOOD ORDERABLES [facility] [place] [address] * CT Lumbar Spine w Contrast (07/22/2022 [...] who have questions please contact the health housekeeper caregiver that requested your imaging first. ? Electronically signed by: Jamaal Villafuerte [facility] ([phone]), at 07/22/2022 8:03 PM Narrative 07/22/2022 8:03 [...] patients who have questions please contactthe health housekeeper caregiver that requested your imaging first. Electronically signed by: Jamaal Villafuerte [facility]([phone]), at 07/22/2022 8:03 PM Marie Telles MD IMG CT ORDERABLES * Differential, Automated (07/22/2022 7:12 PM EDT) Neutrophil % 53.7 % [facility] Neutrophil Absolute 3.01 1.70 - 6.10 x10(3)/[facility] Lymph % 37.4 % [facility] Lymphocytes Abs 2.1 0.9 - 3.2 x10(3)/[facility] Monocyte % 6.2 % [facility] Monocyte Abs 0.4 0.3 - 0.9 x10(3)/[facility] Eos % 1.4 % [facility] Eosinophils Abs 0.1 0.0 - 0.4 x10(3)/[facility] Basophil % 1.1 % [facility] Baso Absolute 0.1 0.0 - 0.1 x10(3)/[facility] Immature Gran % 0.20 % [facility] Comment: Immature granulocytes(IG's)percentage and absolute count will include metamyelocytes, myelocytes, and promyelocytes. Blood smears from CBCs yielding IG's will be scanned manually for concordance. If this scan disagrees with the automated IG or if promyelocytes are noted, a manual differential will be performed. Immature Gran Absolute 0.01 0.00 - 0.04 x10(3)/mcL [facility] Blood 07/22/2022 7:12 PM EDT 07/22/2022 7:21 PM EDT Narrative Resulting Agency Comment Spec In Lab Phyllis SIMMS HEMATOLOGY ORDERABLE S [facility] [place] [address] * (ABNORMAL) Hemogram (07/22/2022 7:12 PM EDT) White Blood Cell 5.6 4.0 - 9.5 x10(3)/mc L [facility] Red Blood Cell 4.58 4.00 - 5.21 x10(6)/mc L [facility] Hemoglobin 11.2(L) 11.7 - 15.5 g/dL [facility] Hematocrit 36.2 35.7 - 45.8 % [facility] Mean Cell Volume 79.0(L) 82.6 - 94.4 fL [facility] Mean Cell Hemoglobin 24.5(L) 27.1 - 32.0 pg [facility] Mean Cell Hemoglobin Concentration 30.9(L) 31.7 - 35.0 g/dL [facility] Platelet 449(H) 145 - 357 x10(3)/mc L [facility] RDW Standard Deviation 52.9(H) 37.0 - 46.0 fL [facility] RDW coefficient of variation 18.3(H) 11.5 - 14.1 % [facility] Mean Platelet Volume 9.2 7.6 - 12.9 fL [facility] NRBC% auto 0.0 % [facility] NRBC Absolute 0.000 0.000 - 0.000 x10(3)/mc L [facility] Blood 07/22/2022 7:12 PM EDT 07/22/2022 7:21 PM EDT Narrative Resulting Agency Comment Spec In Lab Phyllis SIMMS HEMATOLOGY ORDERABLE S [facility] [place] [address] * (ABNORMAL) CRP, acute inflammation (07/22/2022 7:12 PM EDT) C-Reactive Protein 48.9(H) <=4.9 mg/L [facility] Blood 07/22/2022 7:12 PM EDT 07/22/2022 7:21 PM EDT Narrative Resulting Agency Comment Spec In Lab Amarilis Carcamo DO CHEMISTRY O RDERABLES [facility] [place] [address] * (ABNORMAL) Sedimentation rate (07/22/2022 7:12 PM EDT) Sedimentation Rate Automated >119(H) 2 - 37 mm/hr [facility] Comment: Effective April 06, 2019 new capillary photometric technology has resulted in a change in reference ranges. It is recommended that each ESR result be reviewed with its own age appropriate reference range. Blood 07/22/2022 7:12 PM EDT 07/22/2022 7:21 PM EDT Narrative Resulting Agency Comment Spec In Lab Amarilis Carcamo DO HEMATOLOGY ORDERABLES Performing Organization Address City/[facility]/ZIP Co de Phone Number [facility] [place] [address] * (ABNORMAL) Basic Metabolic Panel (non-fasting) (07/22/2022 7:12 PM EDT) Glucose 99 65 - 199 mg/dL [facility] Comment:Diabetes: >=200 mg/d L plus symptoms Blood Urea Nitrogen 10 8 - 18 mg/dL [facility] Creatinine 0.34(L) 0.70 - 1.20 mg/dL [facility] Sodium 139 135 - 145 mmol/L [facility] Potassium 3.8 3.5 - 5.0 mmol/L [facility] Comment: Please note: ??Patients with WBC >100,000 may have falsely elevated Potassium levels. ??For accurate Potassium quantification in these patients send serum separator tube (gold top) for subsequent determinations. ??Contact the Clinical Chemistry Laboratory if there are any questions. Chloride 103 98 - 107 mmol/L [facility] Carbon Dioxide 26 22 - 31 mmol/L [facility] Anion Gap 10 5 - 15 mmol/L [facility] Calcium 9.4 8.5 - 10.5 mg/dL [facility] Est Glomerular Filtration Rate 143 >=60 mL/min/1. 73 m?? [facility] Comment: This patient's estimated GFR [...] In Lab Marie Telles MD CHEMISTRY ORDERABLES [facility] [place] [address] documented in this encounter Visit Diagnoses Diagnosis [...] documented as of this encounter Care Teams Client Care Specialist Relationship Specialty Start Date End Date Lorna Bal APRN [address] [place] [address] PCP - General Family Medicine 05/27/18 documented as of this encounter
--- OUTSIDE RECORDS SUMMARY | 2023-12-07 15:23 | XMS_ITS | Encounter Summary ---
Author Organization [facility] Address [facility] [place] [address] Care Team Providers Care Nuclear Radiation Engineer Name Role Phone Lorna Bal APRN Primary Care Provider +1 [phone] Encounter Details Date Type Department Care Team (Late st Contact Info) Description 07/17/2022 Telephone Infectious [place] [phone] Jamaal Estrada MD [facility] [place] [address] Social History Tobacco Use Types Packs/Day Years [...] PM EST Office Visit Infect[place] [address] Hollie Ambriz MD [facility] [place] [address] documented as of this encounter Visit Diagnoses Not on filedocumented in this encounter Care Teams Nuclear Radiation Engineer Relationship Specialty Start Date End Date Lorna Bal APRN [address] [place] [address] PCP - General Family Medicine 05/27/18 documented as of this encounter
--- OUTSIDE RECORDS SUMMARY | 2023-12-07 15:23 | XMS_ITS | Encounter Summary ---
Author Organization [facility] Benjamin [facility] [address] Care Team Providers Care Dietetic Tech Name Role Phone Lorna Bal APRN Primary Care Provider [phone] [phone] Encounter Details Date Type Department Care Team (Late st Contact Info) Description 07/09/2022 Notes Only Infectious Disease at [facility] [place] [address] Mesha Mckeon, RN Social History Tobacco Use [...] AM EDT Infectious Disease Department Faxed to [facility] and [facility] on 07/09/22 at 0950 Fax confirmation on 07/09/22 at 0952 Document(s) faxed: Standing labs documented in this encounter Plan of Treatment Upcoming Encounters Date Type Department Care Team (Late st Contact Info) Description 06/02/2024 12:30 PM EST Office Visit Infect[place] [address] Hollie Ambriz MD [facility] [place] [address] documented as of this encounter Visit Diagnoses Not on filedocumented in this encounter Additional Health Concerns Infection Onset Date Last Indicated Resolved Time Parainfluenza Virus 06/28/2022 06/28/2022 07/10/19 8:09 PM EDT documented as of this encounter Care Teams Dietetic Tech Relationship Specialty Start Date End Date Lorna Bal APRN [address] [place] [address] PCP - General Family Medicine 05/27/18 documented as of this encounter
--- OUTSIDE RECORDS SUMMARY | 2023-12-07 15:23 | XMS_ITS | Encounter Summary ---
Author Organization [facility] Benjamin [facility] [place] [address] Care Team Providers Care Literature Teacher Name Role Phone Lorna Bal APRN Primary Care Provider [phone] [phone] Encounter Details Date Type Department Care Team (Late st Contact Info) Description 07/22/2022 Notes Only Infectious Disease at [facility] [place] [address] Mesha Mckeon, RN Social History Tobacco Use [...] 07/22/2022 1:28 PM EDT Received call from [facility] who informed this policy writer typist that they are unable to obtain labs [...] PM EST Office [place] [address] Hollie Ambriz MD [facility] [place] [address] documented as of this encounter Visit Diagnoses Not on filedocumented in this encounter Care Teams Literature Teacher Relationship Specialty Start Date End Date Lorna Bal APRN [address] [place] [address] PCP - General Family Medicine 05/27/18 documented as of this encounter
--- OUTSIDE RECORDS SUMMARY | 2023-12-07 15:23 | XMS_ITS | Encounter Summary ---
Author Organization [facility] [place] [address] Care Team Providers Care Billet Recorder Name Role Phone Lorna Bal APRN Primary Care Provider [phone] [phone] Encounter Details Date Type Department Care Team (Late st Contact Info) Description 07/15/2022 Telephone [place] [address] Valentina Stanton Social History Tobacco Use Types [...] alert. She is taking levofloxacin as prescribed. [facility] fallon labs today. We talked [...] PM EST Office [place] [address] Hollie Ambriz MD [facility] [place] [address] documented as of this encounter Visit Diagnoses Not on filedocumented in this encounter Care Teams Billet Recorder Relationship Specialty Start Date End Date Lorna Bal APRN [address] [place] [address] PCP - General Family Medicine 05/27/18 documented as of this encounter
--- OUTSIDE RECORDS SUMMARY | 2023-12-07 15:23 | XMS_ITS | Encounter Summary ---
Author Organization [facility] [place] [address] Care Team Providers Care Interviewing Clerk Name Role Phone Lorna Bal APRN Primary Care Provider [phone] [phone] Encounter Details Date Type Department Care Team (Late st Contact Info) Description 07/22/2022 Orders [place] [address] Yury Gibbons MD [facility] [place] [address] Social History Tobacco Use Types Packs/Day Years Used Date Smoking Tobacco: Never Smokeless Tobacco: Never Comments:NO SMOKERS IN THE H OME Alcohol Use Standard Drinks/Week Comments No 0 (1 standard drink = 0.6 oz pur e alcohol) [facility] Inpatient Questions Answer Date Recorded Does Anyone [...] PM EST Office [place] [address] Hollie Ambriz MD [facility] [place] [address] documented as of this encounter Visit Diagnoses Not on filedocumented in this encounter Care Teams Interviewing Clerk Relationship Specialty Start Date End Date Lorna Bal APRN [address] [place] [address] PCP - General Family Medicine 05/27/18 documented as of this encounter
--- OUTSIDE RECORDS SUMMARY | 2023-12-07 15:23 | XMS_ITS | Encounter Summary ---
Author Organization [facility] Address [facility] Benjamin [facility] [place] [address] Care Team Providers Care Internet Sales Representative Name Role Phone Lorna Bal APRN Primary Care Provider [phone] Encounter Details Date Type Department Care Team (Late st Contact Info) Description 07/12/2022 Telephone [place] [address] Ainsley Doyle MD [facility] [place] [address] Social History Tobacco Use Types Packs/Day Years [...] EST Office Visit [place] [address] Hollie Ambriz MD [facility] [place] [address] documented as of this encounter Visit Diagnoses Not on filedocumented in this encounter Care Teams Internet Sales Representative Relationship Specialty Start Date End Date Lorna Bal APRN [address] [place] [address] PCP - General Family Medicine 05/27/18 documented as of this encounter
--- OUTSIDE RECORDS SUMMARY | 2023-12-07 15:23 | XMS_ITS | Encounter Summary ---
[place] [address] Care Team Providers Care Manager Pharmaceutical Name Role Phone Lorna Bal APRN Primary Care Provider [phone] [phone] Encounter Details Date Type Department Care Team [...] PM EST Office Visit [place] [address] Hollie Ambriz MD [facility] [place] [address] documented as of this encounter Visit Diagnoses Not on filedocumented in this encounter Care Teams Manager Pharmaceutical Relationship Specialty Start Date End Date Lorna Bal APRN [address] [place] [address] PCP - General Family Medicine 05/27/18 documented as of this encounter
--- OUTSIDE RECORDS SUMMARY | 2023-12-07 15:24 | XMS_ITS | Encounter Summary ---
Author Organization [facility] Address [facility] [place] [address] Care Team Providers Care Head Athletic Trainer/Strength Coach Name Role Phone Lorna Bal APRN Primary Care Provider [phone] [phone] Encounter Details Date Type Department Care Team (Latest Contact Info) Description 03/18/2019 1:45 PM EST - 03/18/2019 11:59 PM EST Hospital Encounter XRay at [address] [place] [address] Josse Mckee MD [facility] [place] [address] Acquired dysplasia of hip, unspecified laterality Discharge [...] PM EST Office [place] [address] Hollie Ambriz MD [facility] DR [place] [address] documented as of this encounter Procedures Procedure [...] documented in this encounter Care Teams Head Athletic Trainer/Strength Coach Relationship Specialty Start Date End Date Lorna Bal APRN [address] [place] [address] PCP - General Family Medicine 05/27/18 documented as of this encounter
--- OUTSIDE RECORDS SUMMARY | 2023-12-07 15:24 | XMS_ITS | Encounter Summary ---
Author Organization [facility] Address [facility] [place] [address] Care Team Providers Care Railroad Design Consultant Name Role Phone Emelyn Easley MD Primary Care Provider [phone] Encounter Details Date Type Department Care Team (Late st Contact Info) Description 01/20/2017 Telephone Orthopaedics at [facility] [place] [address] Vanda Carter PA [facility] [place] [address] Social History Tobacco Use Types Packs/Day Years [...] PM EST Office Visit Infect[place] [address] Hollie Ambriz MD [facility] [place] [address] documented as of this encounter Visit Diagnoses Not on filedocumented in this encounter Care Teams Railroad Design Consultant Relationship Specialty Start Date End Date Emelyn Easley MD [address] [place] [address] PCP - General Family Medicine 08/26/16 05/26/18 documented as of this encounter
--- OUTSIDE RECORDS SUMMARY | 2023-12-07 15:24 | XMS_ITS | Encounter Summary ---
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
--- OUTSIDE RECORDS SUMMARY | 2023-12-07 15:24 | XMS_ITS | Encounter Summary ---
Author Organization [facility] Address [facility] [place] [address] Care Team Providers Care Design Checker Name Role Phone Lorna Bal APRN Primary Care Provider [phone] Reason for Visit * Auth/Cert Specialty Diagnoses [...] Expiration Date Visits Re quested Visits Authorized [id number] 1 1 Encounter Details Date Type Department Care Team (Late st Contact Info) Description 06/14/2018 8:34 AM EST - 06/14/2018 12:20 PM EST Hospital Encounter [place] [address] Keith Cotton MD [facility]AL [place] [address] Discharge Disposition: Home Social History Tobacco Use [...] closest emergency room or call the hospital tucking machine operator at [phone] and ask for physician sterilization tech covering for your physician. Questions or problems after 5pm or on a weekend: Call the [facility] tucking machine operator at and ask for the physician sterilization tech covering for your doctor. * Patient Instructions* [...] may be helpful. Most swelling will occur [id number] hours following the procedure. Mouth Rinse: Vigorous [...] can be reached during office hours at [phone]. If you have questions atnight or on weekends, Dr. Cotton can be reached at [phone]. documented in this encounter Medications at Time [...] BOTH LEGS performed by BARRERA OLIVER at [facility] MAIN OR ? ? PRO I&D, POST SPINE, LUMB/SACR/LUMBOSAC N/A 05/20/2014 @I & D, OPEN, DEEP ABSCESS, LUMBAR, SACRAL, LUMBOSACRAL performed by Freddy Isbell MD at [facility] MAIN OR ? ? PRO I&D, POST SPINE, LUMB/SACR/LUMBOSAC N/A 05/26/2014 @I & D, OPEN, DEEP ABSCESS, LUMBAR, SACRAL, LUMBOSACRAL performed by Freddy Isbell MD at [facility] MAIN OR ??? PRO OSTEOTOMY FEMUR SHAFT/SUPRACONDY 08/15/2010 ??OSTEOTOMY, FEMUR SHAFT OR SUPRACONDYLAR W/O FIXATION performed by BARRERA OLIVER at [facility] MAIN OR ??? PRO RECONSTRUC HIP SOCKET, RESEC FEM HEAD 08/15/2010 ??ACETABULOPLASTY (GIRDLESTONE), RESECTION FEMORAL HEAD, BILATERAL performed by BARRERA OLIVER [facility] OR ??? PRO REMOVAL DEEP IMPLANT 08/15/2010 REMOVAL IMPLANT, DEEP, BRUNO performed by BARRERA OLIVER at [facility] MAIN OR ??? PRO REMOVE INFUSN DEVICE/PUMP N/A 05/11/2014 REMOVAL OF SPINE INFUSION PUMP performed by Jamaal Samuel MD at [facility] OR ??? PRO REMOVE SPINAL CANAL CATHETER N/A 05/11/2014 REMOVAL OF INTRATHECAL OR EPIDURAL CATHETER performed by Jamaal Samuel MD at [facility] OR ??? PRO REPR, DURAL/CSF LEAK, NOT REQ LAMINECTOMY N/A 05/20/2014 @REPAIR DURAL\CSF LEAK,NOT REQUIRING LAMINECTOMY performed by Freddy Isbell MD at [facility] OR Allergies Allergen Reactions ??? Fluoxetine Other (See Comments) HIVES, HEART RACES ??? Tegaderm [Transparent Dressings] Itching and Dermatitis Please use [id number] No current facility-administered medications on file prior [...] TOOTH (WRVU 1.09) No flowsheet data found. [place] PDMP QUERY DATE: 06/14/18 Risk Assessment Category: [...] No future appointments. Keith Cotton DMD, MD vault clerk documented in this encounter Miscellaneous Notes * Op Note - Keith Cotton MD - 06/14/2018 11:06 AM EST [facility] Operative Note Patient Name: Tana Cavazos : [id number] MR#: [id number] Case Date: 06/14/2018 Surgeon: Surgeon(s) and Role: [...] and draped in the standard fashion for oral and maxillofacial surgery resident. The oral cavity was suctioned and an [...] tooth #32. Mucoperiosteum was reflected laterally andthe [employer] drill was used to remove bone overlying [...] PM EST Office [place] [address] Hollie Ambriz MD [facility] [place] [address] documented as of this encounter Procedures Procedure [...] Routine documented in this encounter Care Teams Design Checker Relationship Specialty Start Date End Date Lorna Bal APRN [address] [place] [address] PCP - General Family Medicine 05/27/18 documented as of this encounter
--- OUTSIDE RECORDS SUMMARY | 2023-12-07 15:24 | XMS_ITS | Encounter Summary ---
[place] [address] Care Team Providers Care Program Eligibility Specialist Name Role Phone Lorna Bal APRN Primary Care Provider [phone] Encounter Details Date Type Department Care Team [...] PM EST Office [place] [address] Hollie Ambriz MD [facility] [place] [address] documented as of this encounter Visit Diagnoses Not on filedocumented in this encounter Additional Health Concerns Infection Onset Date Last Indicated Resolved Time Parainfluenza Virus 06/28/2022 06/28/2022 07/10/19 23 8:09 PM EDT documented as of this encounter Care Teams Program Eligibility Specialist Relationship Specialty Start Date End Date Lorna Bal APRN [address] [place] [address] PCP - General Family Medicine 05/27/18 documented as of this encounter
--- OUTSIDE RECORDS SUMMARY | 2023-12-07 15:24 | XMS_ITS | Encounter Summary ---
Author Organization [facility] Address [facility] [place] [address] Care Team Providers Care Bilingual Medical Receptionist Name Role Phone Emelyn Easley MD Primary Care Provider [phone] Reason for Visit * Reason Comments Rash * Consultation (Routine) - Closed Specialty Diagnoses / Procedures Referred By Karlo duarte Referred To Contact Dermatology Diagnoses RASH TO UPPER EXTREMITIES EXTENDS TO RIGHT SIDE. Lorna Bal APRN [address] [place] [address] [facility] Dermatology [address] [place] [address] Referral ID Status Reason Start Date Expiration Date V isits Requested Visits Authorized [id number] Closed Consult, Test & Treat Connection Center 09/15/2017 09/15/2018 1 1 Encounter Details Date Type Department Care Team (Late st Contact Info) Description 11/16/2017 9:00 AM EDT Office Visit Dermatology at [facility] [address] [place] [address] Emili Mcdonald MD [facility] DR [place] [address] Keratosis pilaris (Primary Dx); Multiple [...] [Transparent Dressings] Itching and Dermatitis Please use [id number] Review of Systems: - General: Feels well. [...] by Emili Mcdonald MD Resident in Dermatology [facility] Patient seen in conjunction with staff boiler shop supervisor: Wally Araya MD Section of Dermatology [facility] Level of Resident Supervision: Direct Supervision (The [...] EST Office Visit [place] [address] Hollie Ambriz MD [facility] [place] [address] documented as of this encounter Visit Diagnoses Diagnosis Keratosis pilaris- Primary Other specified congenital anomaly of skin Multiple benign nevi Benign neoplasm of skin, site unspecified documented in this encounter Care Teams Bilingual Medical Receptionist Relationship Specialty Start Date End Date Emelyn Easley MD [address] [place] [address] PCP - General Family Medicine 08/26/16 05/26/18 documented as of this encounter
--- OUTSIDE RECORDS SUMMARY | 2023-12-07 15:24 | XMS_ITS | Encounter Summary ---
Author Organization [facility] Address [facility] [place] [address] Care Team Providers Care Steel Hanger Name Role Phone Lorna Bal APRN Primary Care Provider [phone] Reason for Visit * Auth/Cert Specialty Diagnoses [...] Expiration Date Visits Re quested Visits Authorized [id number] 1 1 Encounter Details Date Type Department Care Team (Late st Contact Info) Description 06/14/2018 9:12 AM EST Anesthesia Event [place] [address] Ty Amin MD [facility] [place] [address] Andrade Baldwin MD [facility] [place] [address] Anesthesia Record Procedure Summary Procedure Name Responsible [...] 06/14/18; 0917; other (see comments) (right saphenous); fwih-lyb-fdviux catheter system; 22 gauge; Dr. Amin; 1; no longer indicated, removed per policy/procedure, catheter/device intact; 06/14/18; 1218 06/14/18 0917 by Laxmi Fowler, EGG PROCESSOR 06/14/18 1218 by Jessica Silva, EUNICE ETT Mask Ventilation: Ea sy (1); ETT Type: Cuffed, Nasal, KRISH; ETT Size: 7 mm; Mac Blade: 3; Notes: Asleep, Pre-O2; Attempts: 1; Laryngoscopy Grade: 1; ETT Placement Verified By: Auscultation, Capnometry, Visual; Secured at Teeth: 21 cm; Inserted by: Dr. Amin; Removal Date: 06/14/18; Removal Time: 1106 06/14/18 0924 by Laxmi Fowler, EGG PROCESSOR 06/14/18 1106 by Laxmi Fowler, EGG PROCESSOR Incision 06/14/18; 0937; gum; 12/23/21 (LDA cleanup [...] MD - 06/14/2018 11:39 AM EST [facility] Department of Anesthesiology Post-procedure Note Patient: Tana Cavazos Procedure Summary Date: 06/14/18 Room / Location: [facility] [place] [address] [place] [address] Anesthesia Start: 911 Anesthesia Stop: 1117 Procedures: [...] All Anesthesia Providers: Anesthesiologist: Ty Amin MD EGG PROCESSOR: Laxmi Fowler CRNA Vitals Value Taken Time BP 128/58 06/14/2018 12:00 PM Temp 36.1 ??C (97 ??F) 06/14/2018 11:15 AM Pulse 95 06/14/2018 11:30 AM Resp 20 06/14/2018 12:00 PM SpO2 97 % 06/14/2018 12:00 PM Pain Level 1 06/14/2018 12:00 PM [facility] of Consciousness: Awake and Alert Pain [...] BOTH LEGS performed by BARRERA OLIVER at [facility] OR ? ? PRO I&D, POST SPINE, LUMB/SACR/LUMBOSAC N/A 05/20/2014 @I & D, OPEN, DEEP ABSCESS, LUMBAR, SACRAL, LUMBOSACRAL performed by Freddy Isbell MD at [facility] OR ? ? PRO I&D, POST SPINE, LUMB/SACR/LUMBOSAC N/A 05/26/2014 @I & D, OPEN, DEEP ABSCESS, LUMBAR, SACRAL, LUMBOSACRAL performed by Freddy Isbell MD at [facility] OR ??? PRO OSTEOTOMY FEMUR SHAFT/SUPRACONDY 08/15/2010 ??OSTEOTOMY, FEMUR SHAFT OR SUPRACONDYLAR W/O FIXATION performed by BARRERA OLIVER at [facility] OR ??? PRO RECONSTRUC HIP SOCKET, RESEC FEM HEAD 08/15/2010 ??ACETABULOPLASTY (GIRDLESTONE), RESECTION FEMORAL HEAD, BILATERAL performed by BARRERA OLIVER [facility] OR ??? PRO REMOVAL DEEP IMPLANT 08/15/2010 REMOVAL IMPLANT, DEEP, BRUNO performed by BARRERA OLIVER at [facility] OR ??? PRO REMOVE INFUSN DEVICE/PUMP N/A 05/11/2014 REMOVAL OF SPINE INFUSION PUMP performed by Jamaal Samuel MD at [facility] OR ??? PRO REMOVE SPINAL CANAL CATHETER N/A 05/11/2014 REMOVAL OF INTRATHECAL OR EPIDURAL CATHETER performed by Jamaal Samuel MD at [facility] MAIN OR ??? PRO REPR, DURAL/CSF LEAK, NOT REQ LAMINECTOMY N/A 05/20/2014 @REPAIR DURAL\CSF LEAK,NOT REQUIRING LAMINECTOMY performed by Freddy Isbell MD at [facility] MAIN OR Social History Tobacco Use ??? Smoking status: Never Smoker ??? Smokeless tobacco: Never Used ??? Tobacco comment: NO SMOKERS IN THE HOME Substance Use Topics ??? Alcohol use: No Social History Substance and Sexual Activity Drug Use No Allergies Allergen Reactions ??? Fluoxetine Other (See Comments) HIVES, HEART RACES ??? Tegaderm [Transparent Dressings] Itching and Dermatitis Please use [id number] Medications: MAR and/or home medications have been [...] PM EST Office [place] [address] Hollie Ambriz MD [facility] [place] [address] documented as of this encounter Visit Diagnoses [...] EST documented in this encounter Care Teams Steel Hanger Relationship Specialty Start Date End Date Lorna Bal APRN [address] [place] [address] PCP - General Family Medicine 05/27/18 documented as of this encounter
--- OUTSIDE RECORDS SUMMARY | 2023-12-07 15:24 | XMS_ITS | Encounter Summary ---
Author Organization [facility] Address [facility] [place] [address] Care Team Providers Care Wind Turbine Machinist Name Role Phone Lorna Bal APRN Primary Care Provider [phone] [phone] Encounter Details Date Type Department Care Team (Late st Contact Info) Description 07/08/2022 Orders [place] [address] Jamaal Estrada MD [facility] [place] [address] Spinal abscess; Bacteremia; E coli infection; Soft tissue abscess; Muscle abscess Social History Tobacco Use Types Packs/Day Years Used Date Smoking Tobacco: Never Smokeless Tobacco: Never Comments:NO SMOKERS IN THE H OME Alcohol Use Standard Drinks/Week Comments No 0 (1 standard drink = 0.6 oz pur e alcohol) [facility] Inpatient Questions Answer Date Recorded Does Anyone [...] PM EST Office [place] [address] Hollie Ambriz MD [facility] [address] [place] [address] documented as of this encounter Visit Diagnoses [...] documented as of this encounter Care Teams Wind Turbine Machinist Relationship Specialty Start Date End Date Lorna Bal, [place] [address] [place] [address] PCP - General Family Medicine 05/27/18 documented as of this encounter
--- OUTSIDE RECORDS SUMMARY | 2023-12-07 15:24 | XMS_ITS | Encounter Summary ---
Author Organization [facility] Address [facility] [place] [address] Care Team Providers Care Software Engineering Supervisor Name Role Phone Emelyn Easley MD Primary Care Provider [phone] Reason for Visit * Reason Comments Follow Up Surgery Bilateral Girdle sto ne procedure Encounter Details Date Type Department Care Team (Late st Contact Info) Description 03/06/2017 11:40 AM EST Office [place] [address] Josse Mckee MD [facility] DR [place] [address] Acquired dysplasia of hip, unspecified laterality; Traumatic [...] NAME: Tana Cavazos AGE: 21 y.o.. MR#: [id number] ? DATE OF VISIT: 03/06/2017 ? STAFF: [...] Office Visit [place] [address] Hollie Ambriz MD [facility] [place] [address] documented as of this encounter Visit Diagnoses Diagnosis Acquired dysplasia of hip, unspecified laterality Traumatic brain injury, without loss of consciousness, sequela documented in this encounter Care Teams Software Engineering Supervisor Relationship Specialty Start Date End Date Emelyn Easley MD [address] [place] [address] PCP - General Family Medicine 08/26/16 05/26/18 documented as of this encounter
--- OUTSIDE RECORDS SUMMARY | 2023-12-07 15:24 | XMS_ITS | Encounter Summary ---
Author Organization [facility] [place] [address] Care Team Providers Care Editor Farm Journal Name Role Phone Emelyn Easley MD Primary Care Provider [phone] Reason for Referral * Diagnostic Test (Routine) - Closed Specialty Diagnoses / Procedures Referred By Contac t Referred To Contact Radiology Diagnoses Traumatic brain injury, without LOC, sequela Acquired dysplasia of hip, unspecified laterality Procedures NM Whole Body Bone Scan Vanda Carter, [place] [address] [facility] [place] [address] Referral ID Status Reason Start Date Expiration Date V isits Requested Visits Authorized [id number] Closed Specialty Service Requested 12/16/2016 12/16/2017 2 2 Reason for Visit * Auth/Cert Specialty Diagnoses / Procedures Referred By Contac t Referred To Contact Diagnoses TBI, W/O LOC, SEQUEIA/ACQUIRED DYSPLASIA OF HIP Procedures PRO ANESTH, CAT/MRI SCAN, RADIATN THERAPY BONE SCAN Referral ID Status Reason Start Date Expiration Date Visits Re quested Visits Authorized [id number] 1 1 Encounter Details Date Type Department Care Team (Latest Contact Info) Description 12/30/2016 12:00 PM EDT - 12/30/2016 2:56 PM EDT Hospital Encounter [place] [address] Josse Mckee MD [facility] [place] [address] Traumatic brain injury, without LOC, sequela; Acquired [...] PM EST Office Visit [place] [address] Hollie Ambriz MD [facility] [place] [address] documented as of this encounter Procedures Procedure [...] mCi documented in this encounter Care Teams Editor Farm Journal Relationship Specialty Start Date End Date Emelyn Easley MD [address] [place] [address] PCP - General Family Medicine 08/26/16 05/26/18 documented as of this encounter
--- OUTSIDE RECORDS SUMMARY | 2023-12-07 15:24 | XMS_ITS | Encounter Summary ---
Author Organization [facility] Address [facility] Benjamin [facility] [place] [address] Care Team Providers Care Pulmonology Technician Name Role Phone Lorna Bal APRN Primary Care Provider [phone] Reason for Visit * Reason Comments Cerebral Palsy CP hip dysplasia Encounter Details Date Type Department Care Team (Late st Contact Info) Description 03/18/2019 2:00 PM EST Office [place] [address] Josse Mckee MD [facility] [place] [address] Acquired dysplasia of hip, unspecified laterality Social [...] NAME: Tana Cavazos AGE: 23 y.o.. MR#: [id number] ? DATE OF VISIT: 03/18/2019 ? STAFF: [...] continued pain. She continues to wear a [place] TLSO brace for her residual curve. She [...] would be continued care with an adult woodworker helper to try to utilize botox/phenol injections to manage her pain. He did recommend [facility] in the [place] area, as a good option for an adult woodworker helper. She can follow up PRN with Dr. Mckee, and will be transitioning to an adult provider. documented in this encounter Plan of Treatment Upcoming Encounters Date Type Department Care Team (Late st Contact Info) Description 06/02/2024 12:30 PM EST Office [place] [address] Hollie Ambriz MD [facility] [place] [address] documented as of this encounter Results * [...] laterality documented in this encounter Care Teams Pulmonology Technician Relationship Specialty Start Date End Date Lorna Bal APRN [address] [place] [address] PCP - General Family Medicine 05/27/18 documented as of this encounter
--- OUTSIDE RECORDS SUMMARY | 2023-12-07 15:24 | XMS_ITS | Encounter Summary ---
Author Organization [facility] Address [facility] [place] [address] Care Team Providers Care Pediatric Clinical Nurse Specialist Name Role Phone Lorna Bal APRN Primary Care Provider [phone] Reason for Visit * Auth/Cert Specialty Diagnoses [...] Expiration Date Visits Re quested Visits Authorized [id number] 1 1 Encounter Details Date Type Department Care Team (Late st Contact Info) Description 06/14/2018 9:45 AM EST - 06/14/2018 11:30 AM EST Surgery [place] [address] Keith Cotton MD [facility] ORAL [place] [address] SURGICAL EXTRACTIONS, REMOVAL OF IMPACTED TOOTH, COMPLETELY [...] closest emergency room or call the hospital photogravure press operator at [phone] and ask for physician access consultant covering for your physician. Questions or problems after 5pm or on a weekend: Call the [facility] photogravure press operator at and ask for the physician access consultant covering for your doctor. * Patient [...] may be helpful. Most swelling will occur ahidsk63-82 hours following the procedure. Mouth Rinse: Vigorous [...] can be reached during office hours at [phone]. If you have questions atnight or on weekends, Dr. Cotton can be reached at [phone]. documented in this encounter Medications at Time [...] OLIVER at [facility] MAIN OR ? ? PRO I&D, POST SPINE, LUMB/SACR/LUMBOSAC N/A 05/20/2014 @I & D, OPEN, DEEP ABSCESS, LUMBAR, SACRAL, LUMBOSACRAL performed by Freddy Isbell MD at [facility] MAIN OR ? ? PRO I&D, POST SPINE, LUMB/SACR/LUMBOSAC N/A 05/26/2014 @I & D, OPEN, DEEP ABSCESS, LUMBAR, SACRAL, LUMBOSACRAL performed by Freddy Isbell MD at [facility] MAIN OR ??? PRO OSTEOTOMY FEMUR SHAFT/SUPRACONDY 08/15/2010 ??OSTEOTOMY, FEMUR SHAFT OR SUPRACONDYLAR W/O FIXATION performed by BARRERA OLIVER at [facility] OR ??? PRO RECONSTRUC HIP SOCKET, RESEC FEM HEAD 08/15/2010 ??ACETABULOPLASTY (GIRDLESTONE), RESECTION FEMORAL HEAD, BILATERAL performed by BARRERA OLIVER Critical access hospital OR ??? PRO REMOVAL DEEP IMPLANT 08/15/2010 REMOVAL IMPLANT, DEEP, BRUNO performed by BARRERA OLIVER at [facility] OR ??? PRO REMOVE INFUSN DEVICE/PUMP N/A 05/11/2014 REMOVAL OF SPINE INFUSION PUMP performed by Jamaal Samuel MD at [facility] MAIN OR ??? PRO REMOVE SPINAL CANAL CATHETER N/A 05/11/2014 REMOVAL OF INTRATHECAL OR EPIDURAL CATHETER performed by Jamaal Samuel MD at [facility] OR ??? PRO REPR, DURAL/CSF LEAK, NOT REQ LAMINECTOMY N/A 05/20/2014 @REPAIR DURAL\CSF LEAK,NOT REQUIRING LAMINECTOMY performed by Freddy Isbell MD at [facility] OR Allergies Allergen Reactions ??? Fluoxetine Other (See Comments) HIVES, HEART RACES ??? Tegaderm [Transparent Dressings] Itching and Dermatitis Please use [id number] No current facility-administered medications on file prior [...] TOOTH (WRVU 1.09) No flowsheet data found. [place] PDMP QUERY DATE: 06/14/18 Risk Assessment Category: [...] No future appointments. Keith Cotton DMD, MD radio board operator announcer documented in this encounter Miscellaneous Notes * Op Note - Keith Cotton MD - 06/14/2018 11:[address] [facility] Operative Note Patient Name: Tana Cavazos : [id number] MR#: [id number] Case Date: 06/14/2018 Surgeon: Surgeon(s) and Role: [...] draped in the standard fashion for oral hygienist. The oral cavity was suctioned and an [...] tooth #32. Mucoperiosteum was reflected laterally andthe [employer] drill was used to remove bone overlying [...] Infectious Disease at [facility] [place] [address] Hollie Ambriz MD [facility] [place] [address] documented as of this encounter Procedures Procedure [...] Routine documented in this encounter Care Teams Pediatric Clinical Nurse Specialist Relationship Specialty Start Date End Date Lorna Bal APRN [address] [place] [address] PCP - General Family Medicine 05/27/18 documented as of this encounter
--- OUTSIDE RECORDS SUMMARY | 2023-12-07 15:24 | XMS_ITS | Encounter Summary ---
Author Organization [facility] [address] Care Team Providers Care Legal File Clerk Name Role Phone Lorna Bal APRN Primary Care Provider [phone] [phone] Encounter Details Date Type Department Care Team (Late st Contact Info) Description 06/19/2022 4:45 PM EST Ancillary Procedure [place] [address] Joe Harrison MD [facility] [place] [address] Social History Tobacco Use Types Packs/Day Years [...] PM EST Office [place] [address] Hollie Ambriz MD [facility] [place] [address] documented as of this encounter Procedures Procedure Name Priority Date/Time Associated Diagnosis Comments FILM LIBRARY STORAGE ONLY ULTRASOUND STUDY Routine 06/19/2022 4:40 PM EST documented in this encounter Results * Film Library- Storage Only Ultrasound Study (06/19/2022 4:40 PM EST) Narrative [facility] - 06/19/2022 4:40 PM EST This exam is auto-finalizing. It's purpose is for storage only. Joe Harrison MD G FILM LIBRARY ORD ERABLES [place], [place] documented in this encounter Visit Diagnoses Not on filedocumented in this encounter Care Teams Legal File Clerk Relationship Specialty Start Date End Date Lorna Bal APRN [address] [place] [address] PCP - General Family Medicine 05/27/18 documented as of this encounter
--- OUTSIDE RECORDS SUMMARY | 2023-12-07 15:24 | XMS_ITS | Encounter Summary ---
Author Organization [facility] [place] [address] Care Team Providers Care Copper Miner Blasting Name Role Phone Lorna Bal APRN Primary Care Provider [phone] [phone] Encounter Details Date Type Department Care Team (Late st Contact Info) Description 06/17/2022 Ancillary Procedure [place] [address] Joe Harrison MD [facility] [place] [address] Social History Tobacco Use Types Packs/Day Years [...] PM EST Office [place] [address] Hollie Ambriz MD [facility] [place] [address] documented as of this encounter Procedures Procedure [...] Harrison MD IMG FILM LIBRARY ORD ERABLES [place] documented in this encounter Visit Diagnoses Not on filedocumented in this encounter Care Teams Copper Miner Blasting Relationship Specialty Start Date End Date Lorna Bal APRN [address] [place] [address] PCP - General Family Medicine 05/27/18 documented as of this encounter
--- OUTSIDE RECORDS SUMMARY | 2023-12-07 15:24 | XMS_ITS | Encounter Summary ---
[place] [address] Care Team Providers Care Medical Assisting Program Director Name Role Phone Lorna Bal APRN Primary Care Provider [phone] [phone] Encounter Details Date Type Department Care Team (Late st Contact Info) Description 06/19/2022 Telephone [place] [address] Gurdeep Simmons MD [facility] [place] [address] Social History Tobacco Use Types Packs/Day Years [...] a call from Kelly Landa APRN at [facility] regarding Tana Cavazos through the [...] was brought to the ED today byher funeral professional as there was some concern for having perceived pain her back (patient is non-verbal).Per report, examination by providers at [facility] do not demonstrate evidence of pain, [...] The patient was evaluated by orthopaedics at [facility] (Dr. Weiss) who did not recommend [...] were answered. Gurdeep Simmons MD Orthopaedic Surgery 6026 documented in this encounter Plan of Treatment Upcoming Encounters Date Type Department Care Team (Late st Contact Info) Description 06/02/2024 12:30 PM EST Office Visit [place] [address] Hollie Ambriz MD [facility] [place] [address] documented as of this encounter Visit Diagnoses Not on filedocumented in this encounter Care Teams Medical Assisting Program Director Relationship Specialty Start Date End Date Lorna Bal APRN [address] [place] [address] PCP - General Family Medicine 05/27/18 documented as of this encounter
--- OUTSIDE RECORDS SUMMARY | 2023-12-07 15:24 | XMS_ITS | Encounter Summary ---
Author Organization [facility] Address [facility] [place] [address] Care Team Providers Care Apprentice Cosmetologist Name Role Phone Lorna Bal APRN Primary Care Provider [phone] [phone] Reason for Visit * Reason Comments Follow-up * Consultation (Routine) - Specialty Diagnoses / Procedures Referred By Karlo duarte Referred To Contact Dermatology Diagnoses Disorder of the skin and subcutaneous tissue, unspecified Lorna Bal APRN [address] [place] [address] [facility] [address] [place] [address] Referral ID Status Reason Start Date Expiration Date V isits Requested Visits Authorized [id number] Consult, Test & Treat Connection [facility] PCP Updated and/or Approved 10/10/2019 10/09/2020 12 12 Encounter Details Date Type Department Care Team (Late st Contact Info) Description 10/31/2019 10:40 AM EDT Office Visit Dermatology at [facility] [address] [place] [address] Deanna Norton MD [facility] [address] [place] [address] [employer] Social History Tobacco Use [...] y.o. female. Established pt here with her resident care manager Nely. She has a creaseon the left [...] [Transparent Dressings] Itching and Dermatitis Please use [id number] CURRENT MEDICATIONS: Current Outpatient Medications Medication Sig [...] documentation. Deanna Norton MD Section of Dermatology [facility] documented in this encounter Plan of Treatment Upcoming Encounters Date Type Department Care Team (Late st Contact Info) Description 06/02/2024 12:30 PM EST Office Visit [place] [address] Hollie Ambriz MD [facility] [place] [address] documented as of this encounter Visit Diagnoses Diagnosis Intertrigo Other specified erythematous condition documented in this encounter Care Teams Apprentice Cosmetologist Relationship Specialty Start Date End Date Lorna Bal APRN [address] [place] [address] PCP - General Family Medicine 05/27/18 documented as of this encounter
--- OUTSIDE RECORDS SUMMARY | 2023-12-07 15:24 | XMS_ITS | Encounter Summary ---
Author Organization [facility] [place] [address] Care Team Providers Care Economic Historian Name Role Phone Lorna Bal APRN Primary Care Provider [phone] [phone] Encounter Details Date Type Department Care Team [...] PM EST Office Visit [place] [address] Hollie Ambriz MD [facility] [place] [address] documented as of this encounter Visit Diagnoses Not on filedocumented in this encounter Care Teams Economic Historian Relationship Specialty Start Date End Date Lorna Bal APRN [address] [place] [address] PCP - General Family Medicine 05/27/18 documented as of this encounter
--- OUTSIDE RECORDS SUMMARY | 2023-12-07 15:24 | XMS_ITS | Encounter Summary ---
Author Organization [facility] Address [facility] [place] [address] Care Team Providers Care Family Resource Management Specialist Name Role Phone Lorna Bal APRN Primary Care Provider [phone] [phone] Reason for Visit * Consultation (Routine) - Closed Specialty Diagnoses / Procedures Referred By Contact Referred To Contact Maxillofacial Surgery Diagnoses wisdom teeth extraction no images Yas Conner, [place] [address] Keith Cotton MD [facility] ORAL AND [place] [address] Referral ID Status Reason Start Date Expiration Date Visits Re quested Visits Authorized [id number] Closed 03/20/2018 03/20/2019 1 1 Encounter Details Date Type Department Care Team (Late st Contact Info) Description 05/27/2018 11:00 AM EST Office Visit [place] [address] Keith Cotton MD [facility] ORAL [place] [address] Impacted teeth Social History Tobacco Use Types [...] Oral & Maxillofacial Surgery Extraction Consult Tana Cavzaos is a 22 y.o. female who is referred to us by at [facility] for consultation regarding wisdom teeth dental extractions. [...] [Transparent Dressings] Itching and Dermatitis Please use [id number] with attention to cardiac, pulmonary, hepatic, [...] PM EST Office [place] [address] Hollie Ambriz MD [facility] DR [place] [address] documented as of this encounter Visit Diagnoses Diagnosis Impacted teeth documented in this encounter Care Teams Family Resource Management Specialist Relationship Specialty Start Date End Date Lorna Bal APRN [address] [place] [address] PCP - General Family Medicine 05/27/18 documented as of this encounter
--- OUTSIDE RECORDS SUMMARY | 2023-12-07 15:24 | XMS_ITS | Encounter Summary ---
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, SEQUEIA/ACQUIRED DYSPLASIA OF HIP Procedures PRO ANESTH, CAT/MRI SCAN, RADIATN THERAPY BONE SCAN Referral ID Status Reason Start Date Expiration Date Visits Re quested Visits Authorized [id number] 1 1 Encounter Details Date Type Department Care Team (Latest Contact Info) Description 12/30/2016 2:57 PM EDT - 12/30/2016 11:59 PM EDT Hospital Encounter [place] [address] Josse Mckee MD [facility] DR [place] [address] Discharge Disposition: Home Social History Tobacco Use [...] PM EST Office [place] [address] Hollie Ambriz MD [facility] [address] [place] [address] documented as of this encounter Procedures Procedure [...] filedocumented in this encounter Care Teams Senior Field Engineer Relationship Specialty Start Date End Date Emelyn Easley MD [address] [place] [address] PCP - General Family Medicine 08/26/16 05/26/18 documented as of this encounter
--- OUTSIDE RECORDS SUMMARY | 2023-12-07 15:24 | XMS_ITS | Encounter Summary ---
Author Organization [facility] Address [facility] Benjamin [facility] [place] [address] Care Team Providers Care Greens Keeper Name Role Phone Lorna Bal APRN Primary Care Provider [phone] [phone] Encounter Details Date Type Department Care Team (Late st Contact Info) Description 06/30/2022 Orders [place] [address] Sergey Keane MD [facility] [place] [address] Spinal abscess Social History Tobacco Use Types [...] PM EST Office [place] [address] Hollie Ambriz MD [facility] [place] [address] documented as of this encounter Visit Diagnoses [...] documented as of this encounter Care Teams Greens Keeper Relationship Specialty Start Date End Date Lorna Bal APRN [address] [place] [address] PCP - General Family Medicine 05/27/18 documented as of this encounter
--- OUTSIDE RECORDS SUMMARY | 2023-12-07 15:24 | XMS_ITS | Encounter Summary ---
Author Organization Formerly [facility] [place] [address] Care Team Providers Care Chronic Disease Manager Name Role Phone Lorna Bal APRN Primary Care Provider [phone] Reason for Referral * Home Health Care (Routine) - Closed Specialty Diagnoses / Procedures Referred By Contac t Referred To Contact Diagnoses [place] [address] [facility] [address] [address] Referral ID Status Reason Start Date Expiration Date V isits Requested Visits Authorized [id number] Closed Consult, Test & Treat 07/09/2022 01/05/2023 999 999 Reason for Visit * Reason Comments Surgical Post Op * Auth/Cert (Routine) Specialty Diagnoses / Procedures Referred By Contac t Referred To Contact Diagnoses Spinal abscess Procedures EMERGENCY GABI Eddi Vázquez [place] [address] [facility] Referral ID Status Reason Start Date Expiration Date Visits Re quested Visits Authorized [id number] 1 1 Encounter Details Date Type Department Care Team (Latest Contact Info) Description 06/24/2022 2:05 PM EST - 07/09/2022 10:29 AM EDT Hospital Encounter Medical Specialites Unit Level 1 [place] [id number] Eddi Váz[place] [address] [place] [address] [place] [address] [place] [address] [place] [address] Spinal abscess; Tachycardia; Bacteremia Discharge Disposition: Home [...] Tana Shelton Patient Age: 27 y.o. Language: Romanian Race: White Ethnicity: Not nor Admit date: [...] please contact your inpatient physician through the [facility] Pleat Patternmaker . Issues afterhours and on weekends will [...] however on 06/17 she was brought to [facility] by her paraplanner for possibly increased back pain and received [...] have questions please contact the health healthcare advisory services manager that requested your imaging first. Electronically signed by: Jamaal Villafuerte [facility] ([phone]), at 06/24/2022 6:56 PM IR All Drainage [...] than 25 cc. Fluoroscopy time: Please see [facility] IR technologist record for procedural dose/time. [...] The tract was dilated, and an 8 Finnish drain was advanced over the wire into [...] aspiration demonstrated shiraz pus, and an 8 Finnish drain was placed using ultrasound guidance as [...] maximal sterile barrier technique was used throughout. Bank Vault Attendant fluoroscopic images were obtained. Contrast was injected [...] have questions please contact the health healthcare advisory services manager that requested your imaging first. Electronically signed by: Enid Vargas MD, [facility] ([phone]), at 07/02/2022 11:[address] Lumbar Spine [...] have questions please contact the health healthcare advisory services manager that requested your imaging first. Electronically signed by: Zina Renae MD, [facility] ([phone]), at 07/03/2022 6:31 PM IR All Drainage Procedures (Exam End: 07/04/2022 4:14 PM) Narrative Preoperative Diagnosis: re accumulated Lumbar collection by CT, Fevers Postoperative Diagnosis: Same Procedure Performed: Ultrasound and fluoroscopically guided drain placement. Operators: Mich Martino MD, Attending Estimated Blood Loss: Negligible. Fluoroscopy dose: Please see [facility] IR technologist record for procedural dose/time. [...] dilated over the wire and a 8.5 Finnish drain was advanced over the wire into [...] have questions please contact the health healthcare advisory services manager that requested your imaging first. Electronically signed by: Nathalie Whitaker MD, [facility] ([phone]), at 07/05/2022 5:38 PM IR Site Check In Recovery Room (Exam End: 07/08/2022 10:29 AM) Narrative This exam is auto-finalizing. No interpretation was done. Pending Studies and Lab Data: None Discharge Conditions/Prognosis: Stable Discharge to: Home Updated Allergies/ADRs: Allergies Allergen Reactions ??? Fluoxetine Other (See Comments) HIVES, HEART RACES ??? Tegaderm [Transparent Dressings] Itching and Dermatitis Please use [id number] ??? Penicillins Immunizations Given this Hospitalization: Immunization History Administered Date(s) Administered ??? Influenza Vaccine (Novel) [id number], Injectable 02/25/2009 ??? Influenza Vaccine w/Preservative, Split [...] back. The number for Infectious Disease is [phone] if you have questions or do not [...] Bal PCP Office Your Inpatient Doctor(s) at [facility]: Dr. Ana Guerrero [facility] Medicine Dr. Hills and Dr. Jefferson - Infectious Disease. General Instructions [facility] Vascular and Interventional Radiology Discharge [...] is during regular office hours, please call [phone]. If it is after regular office hours, or on weekends or holidays, please call [phone] and ask to speak to the Corporate Coordinator library monitor for Interventional Radiology. You have received medication [...] PM Lilli Joy APRN Infectious Disease at [facility] Arrive at: Home [phone] Please do not come in for this visit. Your provider will call you at the number you provided. 08/13/2022 11:30 AM Sergey Keane MD Infectious Disease at [facility] Arrive at: [place] Production Supervisor Area [phone] Future Orders Complete By Expires IR Drain Check/Change/Remove [[id number] Custom] 07/20/2022 08/06/2022 Process Instructions: Scheduling Instructions: Questions: Where will study be performed?: [facility] Radiology Reason for exam and clinical [...] Tana Shelton for admission to Home Health. [address] [place] [address] Date of : 1995 Inpatient DOCUMENTATION FOR VNA SERVICES (INCLUDING THOSE PATIENTS WITH MEDICARE COVERAGE REQUIRING HOME VNA SERVICES AND/OR HOSPICE SERVICES) PATIENT'S LOCATION: Tana Shelton [address] [facility] [address] Cell: Telephone Information: Waiter/Waitress Cafeteria's Name: Mother/Guardian Anderson [phone] In discussion with the attending physician, it is certified that this patient is under their care and that they, or a Nurse Practitioner,Clinical Nurse specialist or Physician Masonry Contractor who is working directly with them, had [...] Jefferson, Dr Samuel HOME HEALTH CARE AGENCY: [facility]. [address] [place] [id number] Start of care: Anticipated start of care 24-48 hours after discharge Please note that any additional orders needs or changes will need to be obtained from this patient's PCP: Lorna Bal APRN [address] [facility] [address] All VNA agencies which cover the area of patient's residence have been reviewed, either verbally fatoumata writing, and patient/family have chosen the home health care agency noted ' Questions: Disciplines Requested: Nursing Discharge References/Attachments None documented in this encounter Discharge Instructions * Discharge Instructions* Hollie Perez MD - 06/25/2022 5:20 AM EST [facility] Vascular and Interventional Radiology Discharge [...] is during regular office hours, please call [phone]. If it is after regular office hours, or on weekends or holidays, please call [phone] and ask to speak to the Corporate Coordinator library monitor for Interventional Radiology. You have received medication [...] back. The number for Infectious Disease is [phone] if you have questions or do not [...] Bal PCP Office Your Inpatient Doctor(s) at [facility]: Dr. Perez - Hospital Medicine Dr. Hills [...] spent >30 minutes (Day of Discharge Code 95389) involved in the final examination of the [...] then cefepime vanc for 3 days at [facility] and discharged on cefpodoxime, referred to [...] of care, communication with family Full code TECHNICAL SERVICES REP, nutrition recommendations, diet regular Anticipated Disposition, PT/OT recommendations Home tomorrow Team Pager ( Coverage 17/11) [phone] PCP Lorna Bal APRN Attestation IPI Certification I certify that I am a D-H credentialed attending provider with admitting privileges and that the patient meets or has met medical necessity to require an inpatient IPI level of care meeting a minimumof two midnights or is on the [facility] inpatient only procedure list (status C) [...] future testing is required, contact the Microbiology Lye Peel Operator. * No growth at 1 day. No [...] have questions please contact the health healthcare advisory services manager that requested your imaging first. Electronically signed by: Jamaal Villafuerte [facility] ([phone]), at 06/24/2022 6:56 PM XR Chest One [...] have questions please contact the health healthcare advisory services manager that requested your imaging first. Electronically signed by: Enid Vargas MD, [facility] ([phone]), at 07/02/2022 11:[address] Lumbar Spine [...] have questions please contact the health healthcare advisory services manager that requested your imaging first. Electronically signed by: Zina Renae MD, [facility] ([phone]), at 07/03/2022 6:[address] Abdomen & [...] have questions please contact the health healthcare advisory services manager that requested your imaging first. Electronically signed by: Nathalie Whitaker MD, [facility] ([phone]), at 07/05/2022 5:38 PM * Chrissie Lee [...] of care, communication with family Full code TECHNICAL SERVICES REP, nutrition recommendations, diet regular Anticipated Disposition, PT/OT recommendations Home in next 1-2 days Team Pager ( Coverage 17/11) [phone] PCP Lorna Bal APRN Attestation IPI Certification I certify that I am a D-H credentialed attending provider with admitting privileges and that the patient meets or has met medical necessity to require an inpatient IPI level of care meeting a minimumof two midnights or is on the [facility] inpatient only procedure list (status C) [...] future testing is required, contact the Microbiology Lye Peel Operator. * No growth at 1 day. ECG: [...] have questions please contact the health healthcare advisory services manager that requested your imaging first. Electronically signed by: Jamaal Villafuerte [facility] ([phone]), at 06/24/2022 6:56 PM XR Chest One [...] have questions please contact the health healthcare advisory services manager that requested your imaging first. Electronically signed by: Enid Vargas MD, [facility] ([phone]), at 07/02/2022 11:[address] Lumbar Spine [...] have questions please contact the health healthcare advisory services manager that requested your imaging first. Electronically signed by: Zina Renae MD, [facility] ([phone]), at 07/03/2022 6:[address] Abdomen & [...] have questions please contact the health healthcare advisory services manager that requested your imaging first. Electronically signed by: Nathalie Whitaker MD, [facility] ([phone]), at 07/05/2022 5:38 PM * Sergey Keane MD - 07/07/2022 4:02 PM EDT Images from the original note were not included. DEPARTMENT OF INFECTIOUS DISEASE & INTERNATIONAL [facility] INFECTIOUS DISEASE PROGRESS NOTE Reason for follow up: E coli bacteremia, Spinal collections, gluteal abscess Subjective:Case discussed during rounds with ID team and the attending Dr. Samuel Patient is seen and examined at bedside. montessori lead teacher at bedside, refers she is lethargic with [...] Sergey Doan MD Infectious Disease Fellow Pager [phone] 07/07/22 (Attending addendum to follow) Associated attestation [...] of care, communication with family Full code TECHNICAL SERVICES REP, nutrition recommendations, diet regular Anticipated Disposition, PT/OT recommendations Home Team Pager ( Coverage 17/11) [phone] PCP Lorna Bal APRN Attestation IPI Certification I certify that I am a D-H credentialed attending provider with admitting privileges and that the patient meets or has met medical necessity to require an inpatient IPI level of care meeting a minimumof two midnights or is on the [facility] inpatient only procedure list (status C) [...] future testing is required, contact the Microbiology Lye Peel Operator. * ECG: Recent Labs 07/04/22 0016 DIAGLINE [...] have questions please contact the health healthcare advisory services manager that requested your imaging first. Electronically signed by: Jamaal Villafuerte [facility] ([phone]), at 06/24/2022 6:56 PM XR Chest One [...] have questions please contact the health healthcare advisory services manager that requested your imaging first. Electronically signed by: Enid Vargas MD, [facility] ([phone]), at 07/02/2022 11:[address] Lumbar Spine [...] have questions please contact the health healthcare advisory services manager that requested your imaging first. Electronically signed by: Zina Renae MD, [facility] ([phone]), at 07/03/2022 6:[address] Abdomen & [...] have questions please contact the health healthcare advisory services manager that requested your imaging first. Electronically signed by: Nathalie Whitaker MD, [facility] ([phone]), at 07/05/2022 5:38 PM * Willis Calero DO - 07/06/2022 9:06 [...] follow peripherally. - IR follow up ordered, residential sales executive notified. Willis Calero DO, MBA Interventional Radiology [...] and ADLs]:?Total ?? Surveillance [facility]continuous indirect monitoring[facility] Room near nurses' station [...] is still not taking PO intake, per director career services have concerns for strep. No BM on [...] of care, communication with family Full code TECHNICAL SERVICES REP, nutrition recommendations, diet regular Anticipated Disposition, PT/OT recommendations Home Team Pager (MD Coverage 17/11) [phone] PCP Lorna Bal APRN Attestation IPI Certification I certify that I am a D-H credentialed attending provider with admitting privileges and that the patient meets or has met medical necessity to require an inpatient IPI level of care meeting a minimumof two midnights or is on the [facility] inpatient only procedure list (status C) [...] have questions please contact the health healthcare advisory services manager that requested your imaging first. Electronically signed by: Jamaal Villafuerte [facility] ([phone]), at 06/24/2022 6:56 PM XR Chest One [...] have questions please contact the health healthcare advisory services manager that requested your imaging first. Electronically signed by: Enid Vargas MD, [facility] ([phone]), at 07/02/2022 11:[address] Lumbar Spine [...] have questions please contact the health healthcare advisory services manager that requested your imaging first. Electronically signed by: Zina Renae MD, [facility] ([phone]), at 07/03/2022 6:31 PM * Paige Gonzalez [...] of : 1995 AGE: 27 y.o. Address: [address] [place] [address] Phone: [phone] (home) Mobile: Telephone Information: Referring Provider: Lorna [...] [Transparent Dressings] Itching and Dermatitis Please use [id number] ??? Penicillins Pertinent PMH: Patient Active Problem [...] Sergey Doan MD Infectious Disease Fellow Pager [phone] 07/04/22 (Attending addendum to follow) Associated attestation [...] spiking fevers now. -Discussed with infectious disease recruitment consultant. Patient will get a repeat aspiration [...] of care, communication with family Full code TECHNICAL SERVICES REP, nutrition recommendations, diet regular Anticipated Disposition, PT/OT recommendations Home Team Pager ( Coverage 17/11) [phone] PCP Lorna Bal APRN Attestation IPI Certification I certify that I am a D-H credentialed attending provider with admitting privileges and that the patient meets or has met medical necessity to require an inpatient IPI level of care meeting a minimumof two midnights or is on the [facility] inpatient only procedure list (status C) [...] have questions please contact the health healthcare advisory services manager that requested your imaging first. Electronically signed by: Jamaal Villafuerte [facility] ([phone]), at 06/24/2022 6:56 PM XR Chest One [...] have questions please contact the health healthcare advisory services manager that requested your imaging first. Electronically signed by: Enid Vargas MD, [facility] ([phone]), at 07/02/2022 11:[address] Lumbar Spine [...] have questions please contact the health healthcare advisory services manager that requested your imaging first. Electronically signed by: Zina Renae MD, [facility] ([phone]), at 07/03/2022 6:31 PM * Paige Gonzalez [...] and ADLs]: Total Surveillance [continuous indirect monitoring]: [facility] Bed alarm Room near nurses' station Rounding Patient-specific fall prevention interventions for sensory deficits provided, if applicable: [X] No * Lilli Hughes RPH - 07/04/2022 12:03 AM EST Clinical Pharmacist Note - VancFD Tana Shelton [id number] 1995 Tana Shelton is a 27 y.o. [...] have. Alternately,during off-hours (9p-7a) you may call [phone] to contact a pharmacist. Lilli Hughes RPH [...] of care, communication with family Full code TECHNICAL SERVICES REP, nutrition recommendations, diet regular Anticipated Disposition, PT/OT recommendations Home Team Pager ( Coverage 17/11) [phone] PCP Lorna Bal APRN Attestation IPI Certification I certify that I am a D-H credentialed attending provider with admitting privileges and that the patient meets or has met medical necessity to require an inpatient IPI level of care meeting a minimumof two midnights or is on the [facility] inpatient only procedure list (status C) [...] change was found Confirmed by Lyndon Lafleur ([id number]) on 07/02/2022 5:10:53 PM QTCCALC 443 VASCULAR: [...] have questions please contact the health healthcare advisory services manager that requested your imaging first. Electronically signed by: Jamaal Villafuerte, [facility] ([phone]), at 06/24/2022 6:56 PM XR Chest One [...] have questions please contact the health healthcare advisory services manager that requested your imaging first. Electronically signed by: Enid Vargas MD, [facility] ([phone]), at 07/02/2022 11:26 PM * Nury Torres [...] of care, communication with family Full code TECHNICAL SERVICES REP, nutrition recommendations, diet regular Anticipated Disposition, PT/OT recommendations Home Team Pager ( Coverage 17/11) [phone] PCP Lorna Bal APRN Attestation IPI Certification I certify that I am a D-H credentialed attending provider with admitting privileges and that the patient meets or has met medical necessity to require an inpatient IPI level of care meeting a minimumof two midnights or is on the [facility] inpatient only procedure list (status C) [...] have questions please contact the health healthcare advisory services manager that requested your imaging first. Electronically signed by: Jamaal Villafuerte [facility] ([phone]), at 06/24/2022 6:56 PM * Karrie Smallwood - 07/02/2022 12:21 PM EST Nutrition Services Note - Low Nutrition Acuity Tana Shelton is a 27 y.o. female Reason for intervention: hospital day 9 Nutrition Plan: Continue current diet. Encourage good PO intake. Multivitamin with minerals noted. Monitor weight. Patient screened for hospital length of stay. Custodian Blood Bank communicated with RN by secure chat and primary director career services by phone. Per primary caregiver, patient has [...] weeks ago, where patient weighed 108 lbs. Custodian Blood Bank recommends an updated weight on patient to [...] unless consulted in the interim. ALEJANDRO Osei [phone] * Emeka Zavala MD - 07/02/2022 7:47 [...] tablet ??? lactated Ringers 50 mL/hr (07/01/22 8423) OBJECTIVE: Temp: [36.4 ??C (97.5 ??F)-38.4 ??C [...] of care, communication with family Full code TECHNICAL SERVICES REP, nutrition recommendations, diet regular Anticipated Disposition, PT/OT recommendations Home Team Pager ( Coverage 17/11) [phone] PCP Lorna Bal APRN Attestation IPI Certification [...] Lateral leads Confirmed by MD Mele, Luba ([id number]) on 06/29/2022 9:49:48 PM QTCCALC 458 VASCULAR: [...] have questions please contact the health healthcare advisory services manager that requested your imaging first. Electronically signed by: Jamaal Villafuerte [facility] ([phone]), at 06/24/2022 6:56 PM * Tegan Snyder RN - 07/01/2022 11:44 AM EST ANGIO NURSING DATABASE Name: Tana Shelton Date of : 1995 AGE: 27 y.o. Address: [address] [place] [address] Phone: [phone] (home) Mobile: Telephone Information: Referring Provider: Lorna [...] [Transparent Dressings] Itching and Dermatitis Please use [id number] ??? Penicillins Pertinent PMH: Patient Active Problem [...] Patient Name: Tana Shelton : 1995 MR#: [id number] Received contact from primary team regarding drain [...] Sergey Doan MD Infectious Disease Fellow Pager [phone] 06/30/22 (Attending addendum to follow) Associated attestation [...] of care, communication with family Full code TECHNICAL SERVICES REP, nutrition recommendations, diet regular Anticipated Disposition, PT/OT recommendations Home Team Pager ( Coverage 17/11) [phone] PCP Lorna Bal APRN Attestation IPI Certification I certify that I am a D-H credentialed attending provider with admitting privileges and that the patient meets or has met medical necessity to require an inpatient IPI level of care meeting a minimumof two midnights or is on the [facility] inpatient only procedure list (status C) [...] Lateral leads Confirmed by MD Mele, Luba ([id number]) on 06/29/2022 9:49:48 PM QTCCALC 458 VASCULAR: [...] have questions please contact the health healthcare advisory services manager that requested your imaging first. Electronically signed by: Jamaal Villafuerte [facility] ([phone]), at 06/24/2022 6:56 PM * Estevan Alfaro [...] of care, communication with family Full code TECHNICAL SERVICES REP, nutrition recommendations, diet regular Anticipated Disposition, PT/OT recommendations Home Team Pager ( Coverage 17/11) [phone] PCP Lorna Bal APRN Attestation IPI Certification I certify that I am a D-H credentialed attending provider with admitting privileges and that the patient meets or has met medical necessity to require an inpatient IPI level of care meeting a minimumof two midnights or is on the [facility] inpatient only procedure list (status C) [...] have questions please contact the health healthcare advisory services manager that requested your imaging first. Electronically signed by: Jamaal Villafuerte [facility] ([phone]), at 06/24/2022 6:56 PM * Edvin Looney [...] of care, communication with family Full code TECHNICAL SERVICES REP, nutrition recommendations, diet regular Anticipated Disposition, PT/OT recommendations Home Team Pager ( Coverage 17/11) [phone] PCP Lorna Bal APRN Attestation IPI Certification I certify that I am a D-H credentialed attending provider with admitting privileges and that the patient meets or has met medical necessity to require an inpatient IPI level of care meeting a minimumof two midnights or is on the [facility] inpatient only procedure list (status C) [...] have questions please contact the health healthcare advisory services manager that requested your imaging first. Electronically signed by: Jamaal Villafuerte [facility] ([phone]), at 06/24/2022 6:56 PM * Anurag Call DO - 06/27/2022 6:20 PM EST HOSPITAL MEDICINE ATTENDING DAILY PROGRESS NOTE Patient Tana Shelton 1995 [id number] Physician Anurag Call DO Pager [phone] Encounter Date June 27, 2022 Admit Date 06/24/2022 Hospital Day 3 PCP Lorna Bal, CLERK SECRETARY [phone] ASSESSMENT/PLAN: Active Hospital Problems Diagnosis ??? Spinal [...] Intake/Output Summary (Last 24 hours) at 06/27/2022 9978 Last data filed at 06/27/2022 1643 Gross [...] minimumof two midnights or is on the [facility] inpatient only procedure list (status C) [...] Zhanna Garrett - 06/26/2022 7:15 PM EST Health Center Associate Encounter Note Patient Name: Tana Shelton : [id number] MR#: [id number] Admit Date: 06/24/2022 2:05 PM Hospital Day [...] Tana's mom would be coming back from [place] until the hospital knows what next stepsare. Fannie stated that she was so glad she got Tana to [facility], as the smaller hospitals were dissmissing and [...] Call DO - 06/26/2022 4:51 PM EST [facility] MEDICINE ATTENDING DAILY PROGRESS NOTE Patient Tana Shelton 1995 [id number] Physician Anurag Call DO Pager [phone] Encounter Date June 26, 2022 Admit Date 06/24/2022 Hospital Day 2 PCP Lorna Bal, CLERK SECRETARY [phone] ASSESSMENT/PLAN: Active Hospital Problems Diagnosis ??? Spinal [...] minimumof two midnights or is on the [facility] inpatient only procedure list (status C) due to: Possible spinal abscess with involvement of previous placed hardware Anurag Call DO [id number] Hospitalist 06/26/2022 4:51 PM * Jimbo Willams [...] DAILY PROGRESS NOTE Patient Tana Shelton 1995 [id number] Physician Anurag Call DO Pager [phone] Encounter Date June 25, 2022 Admit Date 06/24/2022 Hospital Day 1 PCP Lorna Bal, CLERK SECRETARY [phone] ASSESSMENT/PLAN: Active Hospital Problems Diagnosis ??? Spinal [...] data in the 24 hours ending 06/25/22 1647 GEN: awake, alert, NAD HEENT: PERRLA, EOMI, [...] have questions please contact the health healthcare advisory services manager that requested your imaging first. Electronically signed by: Jamaal Villafuerte [facility] ([phone]), at 06/24/2022 6:56 PM CONSULTANTS: IP ADMISSION [...] minimumof two midnights or is on the [facility] inpatient only procedure list (status C) due to: Possible spinal abscess with involvement of previous placed hardware Anurag Call DO [phone] Hospitalist 06/25/2022 5:37 PM * Gadiel Morris RN - 06/25/2022 4:19 PM EST [facility] NURSING DATABASE Name: Tana Shelton Date of : 1995 AGE: 27 y.o. Address: [address] [place] [address] (home) Mobile: Telephone Information: Referring Provider: Lorna [...] [Transparent Dressings] Itching and Dermatitis Please use [id number] ??? Penicillins Pertinent PMH: Patient Active Problem [...] All Drainage Procedures 06/25/2022 Mich Martino MD [facility] INTERVENTIONL RAD ??? IR DRAIN CHECK/CHANGE/REMOVE 07/01/2022 IR Drain Check/Change/Remove 07/01/2022 Jamaal Jenkins, DO [facility] INTERVENTIONL RAD ??? PRO APPLY OF HIP CASTS, TWO LEGS 08/15/2010 CAST APPLICATION, HIP SPICA, BOTH LEGS performed by BARRERA OLIVER at [facility] MAIN OR ? ? PRO I&D, POST SPINE, LUMB/SACR/LUMBOSAC N/A 05/20/2014 @I & D, OPEN, DEEP ABSCESS, LUMBAR, SACRAL, LUMBOSACRAL performed by Freddy Isbell MD at [facility] MAIN OR ? ? PRO I&D, POST SPINE, LUMB/SACR/LUMBOSAC N/A 05/26/2014 @I & D, OPEN, DEEP ABSCESS, LUMBAR, SACRAL, LUMBOSACRAL performed by Freddy Isbell MD at [facility] MAIN OR ??? PRO IMPACT TOOTH REMOV COMP BONY N/A 06/14/2018 SURGICAL EXTRACTIONS, REMOVAL OF IMPACTED TOOTH, COMPLETELY BONY (WRVU 1.93) performed by Keith Cotton MD at [facility] OSC ??? PRO OSTEOTOMY FEMUR SHAFT/SUPRACONDY 08/15/2010 ??OSTEOTOMY, FEMUR SHAFT OR SUPRACONDYLAR W/O FIXATION performed by BARRERA OLIVER at [facility] MAIN OR ??? PRO RECONSTRUC HIP SOCKET, RESEC FEM HEAD 08/15/2010 ??ACETABULOPLASTY (GIRDLESTONE), RESECTION FEMORAL HEAD, BILATERAL performed by BARRERA OLIVER [facility] MAIN OR ??? PRO REMOVAL DEEP IMPLANT 08/15/2010 REMOVAL IMPLANT, DEEP, BRUNO performed by BARRERA OLIVER at [facility] MAIN OR ??? PRO REMOVAL ERUPTED TOOTH WITH ELEVATION OF MUCOPERIOSTEAL FLAP N/A 06/14/2018 SURGICAL EXTRACTIONS REQUIRING ELEVATION OF MUCOPERIOSTEAL FLAP AND REMOVAL OF BONE OR SECTION OF TOOTH (WRVU 1.09) performed by Keith Cotton MD at [facility] OSC ??? PRO REMOVE INFUSN DEVICE/PUMP N/A 05/11/2014 REMOVAL OF SPINE INFUSION PUMP performed by Jamaal Samuel MD at [facility] MAIN OR ??? PRO REMOVE SPINAL CANAL CATHETER N/A 05/11/2014 REMOVAL OF INTRATHECAL OR EPIDURAL CATHETER performed by Jamaal Samuel MD at [facility] MAIN OR ??? PRO REPR, DURAL/CSF LEAK, NOT REQ LAMINECTOMY N/A 05/20/2014 @REPAIR DURAL\CSF LEAK,NOT REQUIRING LAMINECTOMY performed by Freddy Isbell MD at [facility] MAIN OR Social History and [...] All Drainage Procedures 06/25/2022 Mich Martino MD [facility] INTERVENTIONL RAD ??? PRO APPLY OF HIP CASTS, TWO LEGS 08/15/2010 CAST APPLICATION, HIP SPICA, BOTH LEGS performed by BARRERA OLIVER at [facility] MAIN OR ? ? PRO I&D, POST SPINE, LUMB/SACR/LUMBOSAC N/A 05/20/2014 @I & D, OPEN, DEEP ABSCESS, LUMBAR, SACRAL, LUMBOSACRAL performed by Freddy Isbell MD at [facility] MAIN OR ? ? PRO I&D, POST SPINE, LUMB/SACR/LUMBOSAC N/A 05/26/2014 @I & D, OPEN, DEEP ABSCESS, LUMBAR, SACRAL, LUMBOSACRAL performed by Freddy Isbell MD at [facility] MAIN OR ??? PRO IMPACT TOOTH REMOV COMP BONY N/A 06/14/2018 SURGICAL EXTRACTIONS, REMOVAL OF IMPACTED TOOTH, COMPLETELY BONY (WRVU 1.93) performed by Keith Cotton MD at [facility] OSC ??? PRO OSTEOTOMY FEMUR SHAFT/SUPRACONDY 08/15/2010 ??OSTEOTOMY, FEMUR SHAFT OR SUPRACONDYLAR W/O FIXATION performed by BARRERA OLIVER at [facility] MAIN OR ??? PRO RECONSTRUC HIP SOCKET, RESEC FEM HEAD 08/15/2010 ??ACETABULOPLASTY (GIRDLESTONE), RESECTION FEMORAL HEAD, BILATERAL performed by BARRERA OLIVER [facility] MAIN OR ??? PRO REMOVAL DEEP IMPLANT 08/15/2010 REMOVAL IMPLANT, DEEP, BRUNO performed by BARRERA OLIVER at [facility] MAIN OR ??? PRO REMOVAL ERUPTED TOOTH WITH ELEVATION OF MUCOPERIOSTEAL FLAP N/A 06/14/2018 SURGICAL EXTRACTIONS REQUIRING ELEVATION OF MUCOPERIOSTEAL FLAP AND REMOVAL OF BONE OR SECTION OF TOOTH (WRVU 1.09) performed by Keith Cotton MD at [facility] OSC ??? PRO REMOVE INFUSN DEVICE/PUMP N/A 05/11/2014 REMOVAL OF SPINE INFUSION PUMP performed by Jamaal Samuel MD at [facility] MAIN OR ??? PRO REMOVE SPINAL CANAL CATHETER N/A 05/11/2014 REMOVAL OF INTRATHECAL OR EPIDURAL CATHETER performed by Jamaal Samuel MD at [facility] MAIN OR ??? PRO REPR, DURAL/CSF LEAK, NOT REQ LAMINECTOMY N/A 05/20/2014 @REPAIR DURAL\CSF LEAK,NOT REQUIRING LAMINECTOMY performed by Freddy Isbell MD at [facility] OR Social History and Habits: Social [...] Tegaderms. S. Gómez Ellison MD PGY-2 Pager #[phone] Department of Radiology Formerly [facility] 06/25/2022 Source Note - Hank Nunez PA [...] BOTH LEGS performed by BARRERA OLIVER at [facility] MAIN OR ? ? PRO I&D, POST SPINE, LUMB/SACR/LUMBOSAC N/A 05/20/2014 @I & D, OPEN, DEEP ABSCESS, LUMBAR, SACRAL, LUMBOSACRAL performed by Freddy Isbell MD at [facility] MAIN OR ? ? PRO I&D, POST SPINE, LUMB/SACR/LUMBOSAC N/A 05/26/2014 @I & D, OPEN, DEEP ABSCESS, LUMBAR, SACRAL, LUMBOSACRAL performed by Freddy Isbell MD at [facility] MAIN OR ??? PRO IMPACT TOOTH REMOV COMP BONY N/A 06/14/2018 SURGICAL EXTRACTIONS, REMOVAL OF IMPACTED TOOTH, COMPLETELY BONY (WRVU 1.93) performed by Keith Cotton MD at [facility] OSC ??? PRO OSTEOTOMY FEMUR SHAFT/SUPRACONDY 08/15/2010 ??OSTEOTOMY, FEMUR SHAFT OR SUPRACONDYLAR W/O FIXATION performed by BARRERA OLIVER at [facility] MAIN OR ??? PRO RECONSTRUC HIP SOCKET, RESEC FEM HEAD 08/15/2010 ??ACETABULOPLASTY (GIRDLESTONE), RESECTION FEMORAL HEAD, BILATERAL performed by BARRERA OLIVER [facility] MAIN OR ??? PRO REMOVAL DEEP IMPLANT 08/15/2010 REMOVAL IMPLANT, DEEP, BRUNO performed by BARRERA OLIVER at [facility] MAIN OR ??? PRO REMOVAL ERUPTED TOOTH WITH ELEVATION OF MUCOPERIOSTEAL FLAP N/A 06/14/2018 SURGICAL EXTRACTIONS REQUIRING ELEVATION OF MUCOPERIOSTEAL FLAP AND REMOVAL OF BONE OR SECTION OF TOOTH (WRVU 1.09) performed by Keith Cotton MD at [facility] OSC ??? PRO REMOVE INFUSN DEVICE/PUMP N/A 05/11/2014 REMOVAL OF SPINE INFUSION PUMP performed by Jamaal Samuel MD at [facility] MAIN OR ??? PRO REMOVE SPINAL CANAL CATHETER N/A 05/11/2014 REMOVAL OF INTRATHECAL OR EPIDURAL CATHETER performed by Jamaal Samuel MD at [facility] OR ??? PRO REPR, DURAL/CSF LEAK, NOT REQ LAMINECTOMY N/A 05/20/2014 @REPAIR DURAL\CSF LEAK,NOT REQUIRING LAMINECTOMY performed by Freddy Isbell MD at [facility] OR Social history and habits: Social [...] BOTH LEGS performed by BARRERA OLIVER at [facility] MAIN OR ? ? PRO I&D, POST SPINE, LUMB/SACR/LUMBOSAC N/A 05/20/2014 @I & D, OPEN, DEEP ABSCESS, LUMBAR, SACRAL, LUMBOSACRAL performed by Freddy Isbell MD at [facility] MAIN OR ? ? PRO I&D, POST SPINE, LUMB/SACR/LUMBOSAC N/A 05/26/2014 @I & D, OPEN, DEEP ABSCESS, LUMBAR, SACRAL, LUMBOSACRAL performed by Freddy Isbell MD at [facility] OR ??? PRO IMPACT TOOTH REMOV COMP BONY N/A 06/14/2018 SURGICAL EXTRACTIONS, REMOVAL OF IMPACTED TOOTH, COMPLETELY BONY (WRVU 1.93) performed by Keith Cotton MD at [facility] OSC ??? PRO OSTEOTOMY FEMUR SHAFT/SUPRACONDY 08/15/2010 ??OSTEOTOMY, FEMUR SHAFT OR SUPRACONDYLAR W/O FIXATION performed by BARRERA OLIVER at [facility] OR ??? PRO RECONSTRUC HIP SOCKET, RESEC FEM HEAD 08/15/2010 ??ACETABULOPLASTY (GIRDLESTONE), RESECTION FEMORAL HEAD, BILATERAL performed by BARRERA OLIVER [facility] OR ??? PRO REMOVAL DEEP IMPLANT 08/15/2010 REMOVAL IMPLANT, DEEP, BRUNO performed by BARRERA OLIVER at [facility] OR ??? PRO REMOVAL ERUPTED TOOTH WITH ELEVATION OF MUCOPERIOSTEAL FLAP N/A 06/14/2018 SURGICAL EXTRACTIONS REQUIRING ELEVATION OF MUCOPERIOSTEAL FLAP AND REMOVAL OF BONE OR SECTION OF TOOTH (WRVU 1.09) performed by Keith Cotton MD at [facility] OSC ??? PRO REMOVE INFUSN DEVICE/PUMP N/A 05/11/2014 REMOVAL OF SPINE INFUSION PUMP performed by Jamaal Samuel MD at [facility] OR ??? PRO REMOVE SPINAL CANAL CATHETER N/A 05/11/2014 REMOVAL OF INTRATHECAL OR EPIDURAL CATHETER performed by Jamaal Samuel MD at [facility] OR ??? PRO REPR, DURAL/CSF LEAK, NOT REQ LAMINECTOMY N/A 05/20/2014 @REPAIR DURAL\CSF LEAK,NOT REQUIRING LAMINECTOMY performed by Freddy Isbell MD at [facility] OR Social history and habits: Social [...] quadriplegia ID: 27 y.o. Female presents to [facility] with redness and drainage from midline surgical [...] however on 06/17 she was brought to [facility] by her paraplanner for possibly increased back pain and received [...] BOTH LEGS performed by BARRERA OLIVER at [facility] MAIN OR ? ? PRO I&D, POST SPINE, LUMB/SACR/LUMBOSAC N/A 05/20/2014 @I & D, OPEN, DEEP ABSCESS, LUMBAR, SACRAL, LUMBOSACRAL performed by Freddy Isbell MD at [facility] MAIN OR ? ? PRO I&D, POST SPINE, LUMB/SACR/LUMBOSAC N/A 05/26/2014 @I & D, OPEN, DEEP ABSCESS, LUMBAR, SACRAL, LUMBOSACRAL performed by Freddy Isbell MD at [facility] MAIN OR ??? PRO IMPACT TOOTH REMOV COMP BONY N/A 06/14/2018 SURGICAL EXTRACTIONS, REMOVAL OF IMPACTED TOOTH, COMPLETELY BONY (WRVU 1.93) performed by Keith Cotton MD at [facility] OSC ??? PRO OSTEOTOMY FEMUR SHAFT/SUPRACONDY 08/15/2010 ??OSTEOTOMY, FEMUR SHAFT OR SUPRACONDYLAR W/O FIXATION performed by BARRERA OLIVER at [facility] MAIN OR ??? PRO RECONSTRUC HIP SOCKET, RESEC FEM HEAD 08/15/2010 ??ACETABULOPLASTY (GIRDLESTONE), RESECTION FEMORAL HEAD, BILATERAL performed by BARRERA OLIVER [facility] MAIN OR ??? PRO REMOVAL DEEP IMPLANT 08/15/2010 REMOVAL IMPLANT, DEEP, BRUNO performed by BARRERA OLIVER at [facility] MAIN OR ??? PRO REMOVAL ERUPTED TOOTH WITH ELEVATION OF MUCOPERIOSTEAL FLAP N/A 06/14/2018 SURGICAL EXTRACTIONS REQUIRING ELEVATION OF MUCOPERIOSTEAL FLAP AND REMOVAL OF BONE OR SECTION OF TOOTH (WRVU 1.09) performed by Keith Cotton MD at [facility] OSC ??? PRO REMOVE INFUSN DEVICE/PUMP N/A 05/11/2014 REMOVAL OF SPINE INFUSION PUMP performed by Jamaal Samuel MD at [facility] MAIN OR ??? PRO REMOVE SPINAL CANAL CATHETER N/A 05/11/2014 REMOVAL OF INTRATHECAL OR EPIDURAL CATHETER performed by Jamaal Samuel MD at [facility] MAIN OR ??? PRO REPR, DURAL/CSF LEAK, NOT REQ LAMINECTOMY N/A 05/20/2014 @REPAIR DURAL\CSF LEAK,NOT REQUIRING LAMINECTOMY performed by Freddy Isbell MD at [facility] MAIN OR Prior To Admission Medications: (Not in a hospital admission) Allergies: Allergies Allergen Reactions ??? Fluoxetine Other (See Comments) HIVES, HEART RACES ??? Tegaderm [Transparent Dressings] Itching and Dermatitis Please use [id number] ??? Penicillins Family History: Family History Problem [...] Administered Date(s) Administered ??? Influenza Vaccine (Novel) [id number], Injectable 02/25/2009 ??? Influenza Vaccine w/Preservative, Split [...] Tana was brought [facility] on 06/17/2022 by her paraplanner as there was some concern for having perceived pain her back (patient is non-verbal). Patient was hospitalized for IV antibiotic treatment of a presumed cellulitis. examination by providers at [facility] did not not preceded evidence of [...] The patient was evaluated by orthopaedics at [facility] (Dr. Weiss) who did not recommend [...] be progressing again since her discharge from [facility] on 06/19/2020. Patient hasbeen afebrile with [...] and did the previous consult note from [facility]. Spoke with orthopedics who are recommending [...] 2046: Orthopedics were able to reach their marketing specialist and will evaluate patient. Plan based [...] have questions please contact the health healthcare advisory services manager that requested your imaging first. Electronically signed by: Jamaal Villafuerte [facility] ([phone]), at 06/24/2022 6:56 PM Assessment and Plan: [...] Contact information [facility] [address] [place] [address] Transportation: family or friend will provide *Mother [...] agreement with plan. Phyllis Abraham RN, BSN [employer] - Medicine Office of Care Management Office: Pager: [phone] * Plan of Care - Jigna Neal [...] yesterday morning Please call with any questions #[phone] Jean-Pierre Godinez RN * Consult Note - Vi Lawrence [facility] - 07/05/2022 8:27 AM EST ?? The [...] Alternately, during off-hours you comfort marlon call [phone] to contact a pharmacist. * Care Management [...] Agency/Support Group Needs: Homecare agency Agency Referrals: [facility] following for DC needs and possible acceptance. Transportation: family or friend will provide Barriers to discharge: Discharge planning Plan going forward: Repeat CT lumbar spine today due to recurrent low grade fevers Care Management will continue to follow and assist with discharge planning and coordination of care as indicated. Anticipated Date of Discharge: 07/07/2022 Phyllis Abraham RN, BSN [employer] [facility] Office of Care Management Office: Pager: [phone] * Care Management - Amy Trejo RN [...] Agency Referrals: I have met with the commissary representative (anderson) to: ?? discuss discharge planning needs. ?? provide the [facility], Office of Care Management letter from the [facility] pertaining to rehabreferrals. ?? provide a letter describing our affiliations within the [facility] and educate about their right to choose where referrals are sent. ?? provide a list of Home Health Agencies / Durable Medical Equipment vendors which serve their preferred geographic area. ?? provided patient with [facility] Star Quality Rating handout. They have requested referrals to: [facility]. [address] [place] [id number] Note routed to a Photographic Printer who will communicate referrals to facilities and [...] Date of Discharge: 07/03/2022 Amy Trejo RN, Pager-[phone] * Plan of Care - Katherine Ryan RN - 07/02/2022 4:51 PM EST OUTCOME EVALUATION NOTE: OUTCOME SUMMARY: Alert on RA, assessment as documented. Does not appear to be in pain. LR 500cc bolus fo SBP 94 increased to 110. HR remain tachy to low 100s. Cont LR discontinued. [facility] for UA sample. CXR obtained. High temp [...] improvement. On 06/17 she was seen at [facility] due to increased back pain and [...] with you. Please call with questions, pager [phone]. Discussed with attending, Dr. Brown Tee MD [...] is possible that [facility] made cultures less sensitive. * Plan of Care - Piter Magaña RN - 06/28/2022 5:15 AM EST OUTCOME EVALUATION NOTE: OUTCOME SUMMARY: Patient has been sleeping intermittently throughout the night. VSS. Mom remains atthe bedside and is attentive to patient. Continues on tele. HR noted to sustain in the 120's-130's.Tele showed ST. All other VSS. Patient asymptomatic. MD (2120) made aware and ordered 500 ml bolus [...] bed, lift device Home Address confirmed as: [address] [place] [id number] Social & Family Supports: All names listed below confirmed with patient as current and correct Extended Emergency Contact Information [facility] Mobile Relation: Mother Secondary Emergency Contact: Curt [facility] Mobile Relation: Step parent Current [...] Insurance: N/A Prescription Coverage: Yes Preferred Pharmacy: [facility] [address] [place] [address] [facility] [address] [facility] [address] [facility] Home Delivery - [place] [address] [place] [address] [id number] - [place], [place] - [address] [facility] [address] [facility] [address] Status: Patient is a : No Primary Care Provider confirmed: Lornaoh Kleinell, CLERK SECRETARY [phone] Patient/Caregiver Goals of Treatment: Caregiver anticipates return [...] of care planning. Alicja Franklin RN, BSN early childhood teacher assistant Office of Care Management Pager: [phone] * Consult Note - Piter Palmer MD [...] in years. Patient was originally seen at [facility] where an ultrasound performed demonstrating a small fluid collection in the subcutaneous tissue. Patient was admitted for 2 days at [facility] for IV antibiotics and then ultimately transitioned to p.o. antibiotics on discharge. Patient presents to the [facility] ED today for persistent erythema despite antibiotic [...] BOTH LEGS performed by BARRERA OLIVER at [facility] MAIN OR ? ? PRO I&D, POST SPINE, LUMB/SACR/LUMBOSAC N/A 05/20/2014 @I & D, OPEN, DEEP ABSCESS, LUMBAR, SACRAL, LUMBOSACRAL performed by Freddy Isbell MD at [facility] MAIN OR ? ? PRO I&D, POST SPINE, LUMB/SACR/LUMBOSAC N/A 05/26/2014 @I & D, OPEN, DEEP ABSCESS, LUMBAR, SACRAL, LUMBOSACRAL performed by Freddy Isbell MD at [facility] MAIN OR ??? PRO IMPACT TOOTH REMOV COMP BONY N/A 06/14/2018 SURGICAL EXTRACTIONS, REMOVAL OF IMPACTED TOOTH, COMPLETELY BONY (WRVU 1.93) performed by Keith Cotton MD at [facility] OSC ??? PRO OSTEOTOMY FEMUR SHAFT/SUPRACONDY 08/15/2010 ??OSTEOTOMY, FEMUR SHAFT OR SUPRACONDYLAR W/O FIXATION performed by BARRERA OLIVER at [facility] MAIN OR ??? PRO RECONSTRUC HIP SOCKET, RESEC FEM HEAD 08/15/2010 ??ACETABULOPLASTY (GIRDLESTONE), RESECTION FEMORAL HEAD, BILATERAL performed by BARRERA OLIVER [facility] OR ??? PRO REMOVAL DEEP IMPLANT 08/15/2010 REMOVAL IMPLANT, DEEP, BRUNO performed by BARRERA OLIVER at [facility] MAIN OR ??? PRO REMOVAL ERUPTED TOOTH WITH ELEVATION OF MUCOPERIOSTEAL FLAP N/A 06/14/2018 SURGICAL EXTRACTIONS REQUIRING ELEVATION OF MUCOPERIOSTEAL FLAP AND REMOVAL OF BONE OR SECTION OF TOOTH (WRVU 1.09) performed by Keith Cotton MD at [facility] OSC ??? PRO REMOVE INFUSN DEVICE/PUMP N/A 05/11/2014 REMOVAL OF SPINE INFUSION PUMP performed by Jamaal Samuel MD at [facility] OR ??? PRO REMOVE SPINAL CANAL CATHETER N/A 05/11/2014 REMOVAL OF INTRATHECAL OR EPIDURAL CATHETER performed by Jamaal Samuel MD at [facility] OR ??? PRO REPR, DURAL/CSF LEAK, NOT REQ LAMINECTOMY N/A 05/20/2014 @REPAIR DURAL\CSF LEAK,NOT REQUIRING LAMINECTOMY performed by Freddy Isbell MD at [facility] OR Home Medications: (Not in a hospital admission) Allergies: Allergies Allergen Reactions ??? Fluoxetine Other (See Comments) HIVES, HEART RACES ??? Tegaderm [Transparent Dressings] Itching and Dermatitis Please use [id number] ??? Penicillins Current Medications: No current facility-administered [...] improve yield - Diet: N.p.o. after midnight Ptier Palmer MD Orthopaedic Surgery, 7400 Associated attestation [...] possible poor wound healing. Joe Harrison MD [facility] - Department of Orthopaedic Surgery Brickm[employer] Apprentice - Department of Orthopedic Surgery / Academics and Research Audio/Visual Operator Professor - [facility] 06/25/2022 * Consult Note - Kelvin Munson, [facility] - 06/24/2022 9:44 PM EST TelePharmacy Home Medication List Update for Medication Reconciliation 06/24/22 9:45 PM Tana Shelton 1995 Allergies Allergen Reactions ??? Fluoxetine Other (See Comments) HIVES, HEART RACES ??? Tegaderm [Transparent Dressings] Itching and Dermatitis Please use [id number] ??? Penicillins ??? Person Interviewed: adult paraplanner ??? Quality of Interview/accuracy of medication list: [...] PM EST Office [place] [address] Hollie Ambriz MD [facility] [address] Scheduled Referrals Name Type Priority Associated Diagnoses [...] 3:55 AM EDT) Neutrophil % 51.7 % [facility] Neutrophil Absolute 3.50 1.70 - 6.10 x10(3)/mc L [facility] Lymph % 39.1 % [facility] Lymphocytes Abs 2.6 0.9 - 3.2 x10(3)/mc L [facility] Monocyte % 5.9 % [facility] Monocyte Abs 0.4 0.3 - 0.9 x10(3)/mc L [facility] Eos % 1.5 % [facility] Eosinophils Abs 0.1 0.0 - 0.4 x10(3)/mc L [facility] Basophil % 0.6 % [facility] Baso Absolute 0.0 0.0 - 0.1 x10(3)/mc L [facility] Immature Gran % 1.20 % [facility] Comment: Immature granulocytes(IG's)percentage and absolute count will include metamyelocytes, myelocytes, and promyelocytes. Blood smears from CBCs yielding IG's will be scanned manually for concordance. If this scan disagrees with the automated IG or if promyelocytes are noted, a manual differential will be performed. Immature Gran Absolute 0.08(H) 0.00 - 0.04 x10(3)/ L [facility] Blood 07/09/2022 3:55 AM EDT 07/09/2022 4:02 AM EDT Narrative Resulting Agency Comment Spec In Lab Hollie Perez MD HEMATOLOGY ORDERABL ES [facility] [place] [address] * (ABNORMAL) Hemogram (07/09/2022 3:55 AM EDT) White Blood Cell 6.8 4.0 - 9.5 x10(3)/[facility] Red Blood Cell 3.54(L) 4.00 - 5.21 x10(6)/[facility] Hemoglobin 8.8(L) 11.7 - 15.5 g/dL [facility] Hematocrit 28.1(L) 35.7 - 45.8 % [facility] Mean Cell Volume 79.4(L) 82.6 - 94.4 fL [facility] Mean Cell Hemoglobin 24.9(L) 27.1 - 32.0 pg [facility] Mean Cell Hemoglobin Concentration 31.3(L) 31.7 - 35.0 g/dL [facility] Platelet 386(H) 145 - 357 x10(3)/mc L [facility] RDW Standard Deviation 57.2(H) 37.0 - 46.0 fL [facility] RDW coefficient of variation 20.9(H) 11.5 - 14.1 % [facility] Mean Platelet Volume 9.4 7.6 - 12.9 fL [facility] NRBC% auto 0.0 % [facility] NRBC Absolute 0.000 0.000 - 0.000 x10(3)/ L [facility] Blood 07/09/2022 3:55 AM EDT 07/09/2022 4:02 AM EDT Narrative Resulting Agency Comment Spec In Lab Hollie Perez MD HEMATOLOGY ORDERABL ES [facility] [place] [address] * (ABNORMAL) Basic Metabolic Panel (non-fasting) (07/09/2022 3:55 AM EDT) Glucose 101 65 - 199 mg/dL [facility] Comment:Diabetes: >=200 mg/d L plus symptoms Blood Urea Nitrogen 8 8 - 18 mg/dL [facility] Creatinine 0.26(L) 0.70 - 1.20 mg/dL [facility] Sodium 139 135 - 145 mmol/L [facility] Potassium 4.2 3.5 - 5.0 mmol/L [facility] Comment: Please note: ??Patients with WBC >100,000 may have falsely elevated Potassium levels. ??For accurate Potassium quantification in these patients send serum separator tube (gold top) for subsequent determinations. ??Contact the Clinical Chemistry Laboratory if there are any questions. Chloride 104 98 - 107 mmol/L [facility] Carbon Dioxide 23 22 - 31 mmol/L [facility] Anion Gap 12 5 - 15 mmol/L [facility] Calcium 9.1 8.5 - 10.5 mg/dL [facility] Est Glomerular Filtration Rate 152 >=60 mL/min/1. 73 m?? [facility] Comment: This patient's estimated GFR was [...] Lab Hollie Perez MD CHEMISTRY ORDERABLE S [facility] [place] [address] * IR Site Check In Recovery Room (07/08/2022 10:29 AM EDT) Narrative Dicom, Auditing User - 07/08/2022 10:29 AM EDT This exam is auto-finalizing. No interpretation was done. Hollie Perez MD IMG IR ORDERABLES * (ABNORMAL) Differential, Automated (07/08/2022 5:48 AM EDT) Neutrophil % 49.5 % [facility] Neutrophil Absolute 2.62 1.70 - 6.10 x10(3)/mc L [facility] Lymph % 41.6 % [facility] Lymphocytes Abs 2.2 0.9 - 3.2 x10(3)/mc L [facility] Monocyte % 5.5 % [facility] Monocyte Abs 0.3 0.3 - 0.9 x10(3)/mc L [facility] Eos % 2.1 % [facility] Eosinophils Abs 0.1 0.0 - 0.4 x10(3)/mc L [facility] Basophil % 0.4 % [facility] Baso Absolute 0.0 0.0 - 0.1 x10(3)/mc L [facility] Immature Gran % 0.90 % [facility] Comment: Immature granulocytes(IG's)percentage and absolute count will include metamyelocytes, myelocytes, and promyelocytes. Blood smears from CBCs yielding IG's will be scanned manually for concordance. If this scan disagrees with the automated IG or if promyelocytes are noted, a manual differential will be performed. Immature Gran Absolute 0.05(H) 0.00 - 0.04 x10(3)/mc L [facility] Blood 07/08/2022 5:48 AM EDT 07/08/2022 5:53 AM EDT Narrative Resulting Agency Comment Spec In Lab Hollie Perez MD HEMATOLOGY ORDERABL ES [facility] [place] [address] * (ABNORMAL) Hemogram (07/08/2022 5:48 AM EDT) White Blood Cell 5.3 4.0 - 9.5 x10(3)/mc L [facility] Red Blood Cell 3.42(L) 4.00 - 5.21 x10(6)/mc L [facility] Hemoglobin 8.4(L) 11.7 - 15.5 g/dL [facility] Hematocrit 27.2(L) 35.7 - 45.8 % [facility] Mean Cell Volume 79.5(L) 82.6 - 94.4 fL [facility] Mean Cell Hemoglobin 24.6(L) 27.1 - 32.0 pg [facility] Mean Cell Hemoglobin Concentration 30.9(L) 31.7 - 35.0 g/dL [facility] Platelet 336 145 - 357 x10(3)/mc L [facility] RDW Standard Deviation 55.7(H) 37.0 - 46.0 fL [facility] RDW coefficient of variation 19.9(H) 11.5 - 14.1 % [facility] Mean Platelet Volume 9.2 7.6 - 12.9 fL [facility] NRBC% auto 0.4 % [facility] NRBC Absolute 0.020(H) 0.000 - 0.000 x10(3)/mc L [facility] Blood 07/08/2022 5:48 AM EDT 07/08/2022 5:53 AM EDT Narrative Resulting Agency Comment Spec In Lab Hollie Perez MD HEMATOLOGY ORDERABL ES Performing Organization Address City/[facility]/ZIP Co de Phone Number [facility] [place] [address] * (ABNORMAL) Basic Metabolic Panel (non-fasting) (07/08/2022 5:48 AM EDT) Glucose 92 65 - 199 mg/dL [facility] Comment:Diabetes: >=200 mg/d L plus symptoms Blood Urea Nitrogen 6(L) 8 - 18 mg/dL [facility] Creatinine 0.24(L) 0.70 - 1.20 mg/dL [facility] Sodium 140 135 - 145 mmol/L [facility] Potassium 3.8 3.5 - 5.0 mmol/L [facility] Comment: Please note: ??Patients with WBC >100,000 may have falsely elevated Potassium levels. ??For accurate Potassium quantification in these patients send serum separator tube (gold top) for subsequent determinations. ??Contact the Clinical Chemistry Laboratory if there are any questions. Chloride 105 98 - 107 mmol/L [facility] Carbon Dioxide 23 22 - 31 mmol/L [facility] Anion Gap 12 5 - 15 mmol/L [facility] Calcium 8.7 8.5 - 10.5 mg/dL [facility] Est Glomerular Filtration Rate 155 >=60 mL/min/1. 73 m?? [facility] Comment: This patient's estimated GFR was [...] Lab Hollie Perez MD CHEMISTRY ORDERABLE S [facility] [place] [address] * Cortisol (07/08/2022 5:48 AM EDT) Cortisol 17.6 mcg/dL [facility] Comment: Reference ranges: ??AM (6-10am): ??4.8-19.5 mcg/dL ??PM (4-8pm) : ??2.5-11.9 mcg/dL Blood 07/08/2022 5:48 AM EDT 07/08/2022 5:53 AM EDT Narrative Resulting Agency Comment Spec In Lab Hollie Perez MD CHEMISTRY ORDERABLE S Performing Organization Address City/[facility]/ZIP Co de Phone Number [facility] [place] [address] * (ABNORMAL) CRP, acute inflammation (07/08/2022 5:48 AM EDT) C-Reactive Protein 16.8(H) <=4.9 mg/L [facility] Blood 07/08/2022 5:48 AM EDT 07/08/2022 5:53 AM EDT Narrative Resulting Agency Comment Spec In Lab Hollie Perez MD CHEMISTRY ORDERABLE S Performing Organization Address [facility] Co de Phone Number [facility] [place] [address] * (ABNORMAL) Ferritin (07/08/2022 5:48 AM EDT) Ferritin 204(H) 15 - 150 ng/mL [facility] Comment: Pediatric reference ranges not verified at [facility], interpret with caution. Reference ranges for females greater than 50 years of age approach values for men, i.e., 30-400 ng/mL. Blood 07/08/2022 5:48 AM EDT 07/08/2022 5:53 AM EDT Narrative Resulting Agency Comment Spec In Lab Hollie Perez MD CHEMISTRY ORDERABLE S Performing Organization Address [facility] Co de Phone Number [facility] [place] [address] * (ABNORMAL) Iron and TIBC (07/08/2022 5:48 AM EDT) Iron 52 30 - 150 mcg/dL [facility] TIBC 217(L) 250 - 450 mcg/dL [facility] Iron Saturation 24 20 - 50 % [facility] Blood 07/08/2022 5:48 AM EDT 07/08/2022 5:53 AM EDT Narrative Resulting Agency Comment Spec In Lab Hollie Perez MD CHEMISTRY ORDERABLE S Performing Organization Address City/[facility] Co de Phone Number [facility] [place] [address] * EKG 12 Lead (07/07/2022 11:44 AM EDT) Ventricular rate 78 BPM MUSE SYSTEM Atrial Rate 78 BPM MUSE SYSTEM P-R Interval 132 ms MUSE SYSTEM QRS Duration 84 ms MUSE SYSTEM Q-T Interval 410 ms MUSE SYSTEM QTC Calculated (Bezet) 467 ms MUSE SYSTEM Calculated P Hamilton 23 degrees MUSE SYSTEM Calculated R Hamilton 0 degrees MUSE SYSTEM Calculated T Hamilton 24 degrees MUSE SYSTEM INTERPRETATION Normal sinus [...] Perez MD ECG ORDERABLES Performing Organization Address [facility] Co de Phone Number MUSE SYSTEM * (ABNORMAL) Blood Gas Venous ([facility]) (07/07/2022 7:10 AM EDT) pH, Venous 7.42 7.32 - 7.42 [facility] PCO2, Venous 39(L) 41 - 51 mmHg [facility] PO2, Venous 58(H) 25 - 40 mmHg [facility] Bicarbonate, Venous 24.5 mmol/L [facility] Base Excess, Venous 0.0 mmol/L [facility] Hgb Blood Gas 8.8(L) 11.7 - 15.5 g/dL [facility] Oxyhemoglobin, Venous 89.6 % [facility] Carboxyhemoglob in, Venous 0.3 % [facility] Comment: Nonsmokers: 0.5-1.5% COHB Smokers: Variable, but usually less than 10% Toxic: 20-30% COHB Lethal: Greater than 60% COHB Methemoglobin, Venous 0.1 <=1.5 % [facility] Na Whole Blood 138 135 - 145 mmol/L [facility] K Whole Blood 3.6 3.5 - 5.0 mmol/L [facility] Comment: Please note: Patients with WBC >100,000 may have falsely elevated Potassium levels. Contact the Clinical Chemistry Laboratory if there are any questions. ICa Whole Blood 1.16 1.15 - 1.33 mmol/L [facility] Comment: Note: ??Total bilirubin higher than 20 mg/dL may lead to falsely low ionized calcium. CL Whole Blood 109(H) 98 - 107 mmol/L [facility] Gluc Whole Bld 89 65 - 199 mg/dL [facility] Comment:Diabetes: >=200 mg/d L plus symptoms Lactate WB 1.3 0.5 - 2.2 mmol/L [facility] Blood Gas Source Venous [facility] Blood Venous Draw / Unknown 07/07/2022 7:10 AM EDT 07/07/2022 7:18 AM EDT Narrative Resulting Agency Comment Spec In Lab Mayank Kang MD CHEMISTRY ORDERABLES [facility] [place] [address] * Scan, Peripheral Blood (07/07/2022 3:41 AM EDT) Plat estimate Normal [facility] RBC Morphology Abnormal [facility] Macrocyte 1-5 /HPF [facility] Microcyte 6-10 /HPF [facility] Hypochromia Slight [facility] Ovalocytes 1-5 /HPF [facility] Plat, Giant Less than 1 /HPF [facility] Blood 07/07/2022 3:41 AM EDT 07/07/2022 3:46 AM EDT Narrative Resulting Agency Comment Spec In Lab Hollie Perez MD HEMATOLOGY ORDERABL ES Performing Organization Address City/[facility]/[place] [address] * (ABNORMAL) Differential, Automated (07/07/2022 3:41 AM EDT) Neutrophil % 40.9 % [facility] Neutrophil Absolute 1.54(L) 1.70 - 6.10 x10(3)/mc L [facility] Lymph % 49.7 % [facility] Lymphocytes Abs 1.9 0.9 - 3.2 x10(3)/mc L [facility] Monocyte % 6.3 % [facility] Monocyte Abs 0.2(L) 0.3 - 0.9 x10(3)/mc L [facility] Eos % 2.1 % [facility] Eosinophils Abs 0.1 0.0 - 0.4 x10(3)/mc L [facility] Basophil % 0.5 % [facility] Baso Absolute 0.0 0.0 - 0.1 x10(3)/mc L [facility] Immature Gran % 0.50 % [facility] Comment: Immature granulocytes(IG's)percentage and absolute count will include metamyelocytes, myelocytes, and promyelocytes. Blood smears from CBCs yielding IG's will be scanned manually for concordance. If this scan disagrees with the automated IG or if promyelocytes are noted, a manual differential will be performed. Immature Gran Absolute 0.02 0.00 - 0.04 x10(3)/mc L [facility] Blood 07/07/2022 3:41 AM EDT 07/07/2022 3:46 AM EDT Narrative Resulting Agency Comment Spec In Lab Hollie Perez MD HEMATOLOGY ORDERABL ES Performing Organization Address City/[facility]/[place] [address] * (ABNORMAL) Hemogram (07/07/2022 3:41 AM EDT) White Blood Cell 3.8(L) 4.0 - 9.5 x10(3)/mc L [facility] Red Blood Cell 3.13(L) 4.00 - 5.21 x10(6)/mc L [facility] Hemoglobin 7.6(L) 11.7 - 15.5 g/dL [facility] Hematocrit 25.5(L) 35.7 - 45.8 % [facility] Mean Cell Volume 81.5(L) 82.6 - 94.4 fL [facility] Mean Cell Hemoglobin 24.3(L) 27.1 - 32.0 pg [facility] Mean Cell Hemoglobin Concentration 29.8(L) 31.7 - 35.0 g/dL [facility] Platelet 281 145 - 357 x10(3)/mc L [facility] RDW Standard Deviation 56.9(H) 37.0 - 46.0 fL [facility] RDW coefficient of variation 19.5(H) 11.5 - 14.1 % [facility] Mean Platelet Volume 9.5 7.6 - 12.9 fL [facility] NRBC% auto 0.0 % [facility] NRBC Absolute 0.000 0.000 - 0.000 x10(3)/ L [facility] Blood 07/07/2022 3:41 AM EDT 07/07/2022 3:46 AM EDT Narrative Resulting Agency Comment Spec In Lab Hollie Perez MD HEMATOLOGY ORDERABL ES Performing Organization Address City/State/[facility] Co de Phone Number [facility] [place] [address] * (ABNORMAL) Basic Metabolic Panel (non-fasting) (07/07/2022 3:41 AM EDT) Glucose 90 65 - 199 mg/dL [facility] Comment:Diabetes: >=200 mg/d L plus symptoms Blood Urea Nitrogen 5(L) 8 - 18 mg/dL [facility] Creatinine 0.23(L) 0.70 - 1.20 mg/dL [facility] Sodium 141 135 - 145 mmol/L [facility] Potassium 3.7 3.5 - 5.0 mmol/L [facility] Comment: Please note: ??Patients with WBC >100,000 may have falsely elevated Potassium levels. ??For accurate Potassium quantification in these patients send serum separator tube (gold top) for subsequent determinations. ??Contact the Clinical Chemistry Laboratory if there are any questions. Chloride 110(H) 98 - 107 mmol/L [facility] Carbon Dioxide 23 22 - 31 mmol/L [facility] Anion Gap 8 5 - 15 mmol/L [facility] Calcium 8.3(L) 8.5 - 10.5 mg/dL [facility] Est Glomerular Filtration Rate 157 >=60 mL/min/1. 73 m?? [facility] Comment: This patient's estimated GFR was [...] MD CHEMISTRY ORDERABLE S Performing Organization Address [facility] Co de Phone Number [facility] [place] [address] * Blood culture (07/07/2022 3:41 AM EDT) Blood Culture No growth at 5 days. [facility] Blood 07/07/2022 3:41 AM EDT 07/07/2022 4:59 AM EDT Comment:L hand Narrative Resulting Agency Comment Spec In Lab Hollie Perez MD MICROBIOLOGY - BLOO D ORDERABLES Performing Organization Address [facility] Co de Phone Number [facility] [place] [address] * (ABNORMAL) Hepatic Function Panel (07/07/2022 3:41 AM EDT) Protein, Total 6.0(L) 6.1 - 8.0 g/dL [facility] Albumin 2.9(L) 3.2 - 5.2 g/dL [facility] Aspartate Aminotransferase 20 0 - 30 unit/L [facility] Alanine Aminotransferase 42(H) 0 - 30 unit/L [facility] Alkaline Phosphatase 177(H) 35 - 105 unit/L [facility] Bilirubin, Total <0.2(L) 0.2 - 1.3 mg/dL [facility] Bilirubin, Direct <0.1 0.0 - 0.3 mg/dL [facility] Blood 07/07/2022 3:41 AM EDT 07/07/2022 3:46 AM EDT Narrative Resulting Agency Comment Spec In Lab Hollie Perez MD CHEMISTRY ORDERABLE S Performing Organization Address [facility]/ZIP Co de Phone Number [facility] [place] [address] * (ABNORMAL) Hemoglobin and Hematocrit, blood (07/06/2022 6:40 PM EDT) Hemoglobin 8.5(L) 11.7 - 15.5 g/dL [facility] Hematocrit 26.4(L) 35.7 - 45.8 % [facility] Blood 07/06/2022 6:40 PM EDT 07/06/2022 6:46 PM EDT Narrative Resulting Agency Comment Spec In Lab Hollie Perez MD HEMATOLOGY ORDERABL ES Performing Organization Address [facility]/ZIP Co de Phone Number [facility] [place] [address] * Lactate, whole blood, send to lab ([facility]) (07/06/2022 6:40 PM EDT) Lactate WB 0.6 0.5 - 2.2 mmol/L [facility] Blood 07/06/2022 6:40 PM EDT 07/06/2022 6:46 PM EDT Narrative Resulting Agency Comment Spec In Lab Hollie Perez MD CHEMISTRY ORDERABLE S Performing Organization Address [facility] Co de Phone Number [facility] [place] [address] * POCT Glucose (07/06/2022 5:36 PM EDT) Glucose, POC 86 65 - 199 mg/dL [facility] Comment: Supplemental ranges: <140 mg/dL before meals <180 mg/dL all other times of the day Blood 07/06/2022 5:36 PM EDT 07/06/2022 5:36 PM EDT Hollie Perez MD POINT OF CARE TEST ORDERABLES Performing Organization Address [facility] de Phone Number [facility] [place] [address] * (ABNORMAL) CRP, acute inflammation (07/06/2022 6:21 AM EDT) C-Reactive Protein 54.2(H) <=4.9 mg/L [facility] Blood Venous Draw / Unknown 07/06/2022 6:21 AM EDT 07/06/2022 7:28 AM EDT Narrative Resulting Agency Comment Spec In Lab Hollie Perez MD CHEMISTRY ORDERABLE S Performing Organization Address [facility] Co de Phone Number [facility] [place] [address] * (ABNORMAL) Basic Metabolic Panel (non-fasting) (07/06/2022 6:21 AM EDT) Glucose 80 65 - 199 mg/dL [facility] Comment:Diabetes: >=200 mg/d L plus symptoms Blood Urea Nitrogen 4(L) 8 - 18 mg/dL [facility] Creatinine 0.26(L) 0.70 - 1.20 mg/dL [facility] Sodium 138 135 - 145 mmol/L [facility] Potassium 3.6 3.5 - 5.0 mmol/L [facility] Comment: Please note: ??Patients with WBC >100,000 may have falsely elevated Potassium levels. ??For accurate Potassium quantification in these patients send serum separator tube (gold top) for subsequent determinations. ??Contact the Clinical Chemistry Laboratory if there are any questions. Chloride 104 98 - 107 mmol/L [facility] Carbon Dioxide Not Perf 22 - 31 [facility] Comment:Add-on request. Samp le too old to perform test. Anion Gap Unable to Calculate 5 - 15 mmol/L [facility] Calcium 8.6 8.5 - 10.5 mg/dL [facility] Est Glomerular Filtration Rate 152 >=60 mL/min/1 .73 m?? [facility] Comment: This patient's estimated GFR was [...] City/[facility]/ZIP Co de Phone Number [facility] [place] [address] * Lavender Tube HOLD (07/06/2022 6:21 AM EDT) Lavender Hold Sample in lab. [facility] Blood Venous Draw / Unknown 07/06/2022 6:21 AM EDT 07/06/2022 6:28 AM EDT Hollie Perez MD HEMATOLOGY ORDERABL ES Performing Organization Address City/[facility]/ZIP Co de Phone Number [facility] [place] [address] * (ABNORMAL) Hepatic Function Panel (07/06/2022 6:21 AM EDT) Protein, Total 6.7 6.1 - 8.0 g/dL [facility] Albumin 3.2 3.2 - 5.2 g/dL [facility] Aspartate Aminotransferase 25 0 - 30 unit/L [facility] Alanine Aminotransferase 57(H) 0 - 30 unit/L [facility] Alkaline Phosphatase 199(H) 35 - 105 unit/L [facility] Bilirubin, Total 0.3 0.2 - 1.3 mg/dL [facility] Bilirubin, Direct 0.1 0.0 - 0.3 mg/dL [facility] Blood 07/06/2022 6:21 AM EDT 07/06/2022 6:27 AM EDT Narrative Resulting Agency Comment Spec In Lab Hollie Perez MD CHEMISTRY ORDERABLE S Performing Organization Address [facility] Co de Phone Number [facility] [address] * Blood culture (07/06/2022 6:21 AM EDT) Blood Culture No growth at 5 days. [facility] Blood 07/06/2022 6:21 AM EDT 07/06/2022 11:05 AM EDT Comment:R Hand Narrative Resulting Agency Comment Spec In Lab Hollie Perez MD MICROBIOLOGY - BLOO D ORDERABLES Performing Organization Address [facility] [place] [address] * CT Abdomen & Pelvis w Contrast [...] have questions please contact the health healthcare advisory services manager that requested your imaging first. ? Electronically signed by: Nathalie Whitaker MD, [facility] ([phone]), at 07/05/2022 5:38 PM Narrative 07/05/2022 5:38 [...] administration of contrast. Administered 66.0 ml of [id number] mg/ml. Oral contrast administered. COMPARISON: CT lumbar [...] who have questions please contactthe health healthcare advisory services manager that requested your imaging first. Hollie Perez MD IMG CT ORDERABLES * Scan, Peripheral Blood (07/05/2022 5:31 AM EST) Pathologist [facility] Plat estimate Normal [facility] RBC Morphology Abnormal [facility] Hypochromia Slight [facility] Blood 07/05/2022 5:31 AM EST 07/05/2022 5:43 AM EST Narrative Resulting Agency Comment Spec In Lab Ian Duarte MD HEMATOLOGY CLEO SALDANA [facility] [place] [address] * Bilirubin, Direct (07/05/2022 5:31 AM EST) Pathologist [facility] Bilirubin, Direct 0.1 0.0 - 0.3 mg/dL [facility] Blood 07/05/2022 5:31 AM EST 07/05/2022 5:43 AM EST Narrative Resulting Agency Comment Spec In Lab Hollie Perez MD CHEMISTRY ORDERABLE S Performing Organization Address City/[facility]/[place] [address] * (ABNORMAL) Differential, Automated (07/05/2022 5:31 AM EST) Neutrophil % 41.2 % [facility] Neutrophil Absolute 1.39(L) 1.70 - 6.10 x10(3)/mc L [facility] Lymph % 45.4 % [facility] Lymphocytes Abs 1.5 0.9 - 3.2 x10(3)/mc L [facility] Monocyte % 11.6 % [facility] Monocyte Abs 0.4 0.3 - 0.9 x10(3)/mc L [facility] Eos % 0.6 % [facility] Eosinophils Abs 0.0 0.0 - 0.4 x10(3)/mc L [facility] Basophil % 0.6 % [facility] Baso Absolute 0.0 0.0 - 0.1 x10(3)/mc L [facility] Immature Gran % 0.60 % [facility] Comment: Immature granulocytes(IG's)percentage and absolute count will include metamyelocytes, myelocytes, and promyelocytes. Blood smears from CBCs yielding IG's will be scanned manually for concordance. If this scan disagrees with the automated IG or if promyelocytes are noted, a manual differential will be performed. Immature Gran Absolute 0.02 0.00 - 0.04 x10(3)/mc L [facility] Blood 07/05/2022 5:31 AM EST 07/05/2022 5:43 AM EST Narrative Resulting Agency Comment Spec In Lab Ian Duarte MD HEMATOLOGY ORDArthur SALDANA Performing Organization Address City/[facility]/[place] [address] * (ABNORMAL) Hemogram (07/05/2022 5:31 AM EST) White Blood Cell 3.4(L) 4.0 - 9.5 x10(3)/mc L [facility] Red Blood Cell 3.20(L) 4.00 - 5.21 x10(6)/mc L [facility] Hemoglobin 7.7(L) 11.7 - 15.5 g/dL [facility] Hematocrit 25.4(L) 35.7 - 45.8 % [facility] Mean Cell Volume 79.4(L) 82.6 - 94.4 fL [facility] Mean Cell Hemoglobin 24.1(L) 27.1 - 32.0 pg [facility] Mean Cell Hemoglobin Concentration 30.3(L) 31.7 - 35.0 g/dL [facility] Platelet 240 145 - 357 x10(3)/mc L [facility] RDW Standard Deviation 56.9(H) 37.0 - 46.0 fL [facility] RDW coefficient of variation 19.7(H) 11.5 - 14.1 % [facility] Mean Platelet Volume 9.5 7.6 - 12.9 fL [facility] NRBC% auto 0.0 % [facility] NRBC Absolute 0.000 0.000 - 0.000 x10(3)/ L [facility] Blood 07/05/2022 5:31 AM EST 07/05/2022 5:43 AM EST Narrative Resulting Agency Comment Spec In Lab Ian Duarte MD HEMATOLOGY CLEO SALDANA [facility] [place] [address] * (ABNORMAL) Comprehensive metabolic panel (non-fasting) (07/05/2022 5:31 AM EST) Glucose 85 65 - 199 mg/dL [facility] Comment:Diabetes: >=200 mg/d L plus symptoms Blood Urea Nitrogen 6(L) 8 - 18 mg/dL [facility] Creatinine 0.29(L) 0.70 - 1.20 mg/dL [facility] Sodium 142 135 - 145 mmol/L [facility] Potassium 3.8 3.5 - 5.0 mmol/L [facility] Comment: Please note: ??Patients with WBC >100,000 may have falsely elevated Potassium levels. ??For accurate Potassium quantification in these patients send serum separator tube (gold top) for subsequent determinations. ??Contact the Clinical Chemistry Laboratory if there are any questions. Chloride 108(H) 98 - 107 mmol/L [facility] Carbon Dioxide 25 22 - 31 mmol/L [facility] Anion Gap 9 5 - 15 mmol/L [facility] Calcium 8.4(L) 8.5 - 10.5 mg/dL [facility] Protein, Total 5.9(L) 6.1 - 8.0 g/dL [facility] Albumin 3.1(L) 3.2 - 5.2 g/dL [facility] Aspartate Aminotransferase 39(H) 0 - 30 unit/L [facility] Alanine Aminotransferase 74(H) 0 - 30 unit/L [facility] Alkaline Phosphatase 209(H) 35 - 105 unit/L [facility] Bilirubin, Total 0.4 0.2 - 1.3 mg/dL [facility] Est Glomerular Filtration Rate 148 >=60 mL/min/1. 73 m?? [facility] Comment: This patient's estimated GFR was [...] Lab Ian Duarte MD CHEMISTRY ORDER MYRANDA [facility] [place] [address] * IR All Drainage Procedures (07/04/2022 4:14 PM EST) Anatomical Region Laterality Modality X-Ray Angiograph y Narrative 07/04/2022 4:52 PM EST Preoperative Diagnosis: re accumulated Lumbar collection by CT, Fevers Postoperative Diagnosis: ?? Same Procedure Performed: Ultrasound and fluoroscopically guided drain placement. Operators: iMch Martino MD, Attending Estimated Blood Loss: Negligible. Fluoroscopy dose: ??Please see [facility] IR technologist record for procedural dose/time. [...] dilated over the wire and a 8.5 Finnish drain was advanced over the wire into [...] 6:07 AM EST) Neutrophil % 81.6 % [facility] Neutrophil Absolute 6.79(H) 1.70 - 6.10 x10(3)/mc L [facility] Lymph % 11.8 % [facility] Lymphocytes Abs 1.0 0.9 - 3.2 x10(3)/mc L [facility] Monocyte % 6.3 % [facility] Monocyte Abs 0.5 0.3 - 0.9 x10(3)/mc L [facility] Eos % 0.0 % [facility] Eosinophils Abs 0.0 0.0 - 0.4 x10(3)/mc L [facility] Basophil % 0.1 % [facility] Baso Absolute 0.0 0.0 - 0.1 x10(3)/mc L [facility] Immature Gran % 0.20 % [facility] Comment: Immature granulocytes(IG's)percentage and absolute count will include metamyelocytes, myelocytes, and promyelocytes. Blood smears from CBCs yielding IG's will be scanned manually for concordance. If this scan disagrees with the automated IG or if promyelocytes are noted, a manual differential will be performed. Immature Gran Absolute 0.02 0.00 - 0.04 x10(3)/mc L [facility] Blood 07/04/2022 6:07 AM EST 07/04/2022 6:14 AM EST Narrative Resulting Agency Comment Spec In Lab Ian Duarte MD HEMATOLOGY CLEO SALDANA [facility] [place] [address] * (ABNORMAL) Hemogram (07/04/2022 6:07 AM EST) White Blood Cell 8.3 4.0 - 9.5 x10(3)/mc L [facility] Red Blood Cell 3.38(L) 4.00 - 5.21 x10(6)/mc L [facility] Hemoglobin 8.3(L) 11.7 - 15.5 g/dL [facility] Hematocrit 26.0(L) 35.7 - 45.8 % [facility] Mean Cell Volume 76.9(L) 82.6 - 94.4 fL [facility] Mean Cell Hemoglobin 24.6(L) 27.1 - 32.0 pg [facility] Mean Cell Hemoglobin Concentration 31.9 31.7 - 35.0 g/dL [facility] Platelet 244 145 - 357 x10(3)/mc L [facility] RDW Standard Deviation 54.5(H) 37.0 - 46.0 fL [facility] RDW coefficient of variation 19.5(H) 11.5 - 14.1 % [facility] Mean Platelet Volume 9.3 7.6 - 12.9 fL [facility] NRBC% auto 0.0 % [facility] NRBC Absolute 0.000 0.000 - 0.000 x10(3)/mc L [facility] Blood 07/04/2022 6:07 AM EST 07/04/2022 6:14 AM EST Narrative Resulting Agency Comment Spec In Lab Ian Duarte MD HEMATOLOGY CLEO SALDANA Performing Organization Address City/State/[facility] Co de Phone Number [facility] [place] [address] * Lactate, whole blood, send to lab ([facility] (07/04/2022 6:07 AM EST) Lactate WB 1.9 0.5 - 2.2 mmol/L [facility] Blood 07/04/2022 6:07 AM EST 07/04/2022 6:14 AM EST Narrative Resulting Agency Comment Spec In Lab Yury Saavedra MD CHEMISTRY ORDERABLE S Performing Organization Address [facility] Co de Phone Number [facility] [place] [address] * (ABNORMAL) Basic Metabolic Panel (non-fasting) (07/04/2022 6:07 AM EST) Glucose 114 65 - 199 mg/dL [facility] Comment:Diabetes: >=200 mg/d L plus symptoms Blood Urea Nitrogen 8 8 - 18 mg/dL [facility] Creatinine 0.34(L) 0.70 - 1.20 mg/dL [facility] Sodium 134(L) 135 - 145 mmol/L [facility] Potassium 4.1 3.5 - 5.0 mmol/L [facility] Comment: Please note: ??Patients with WBC >100,000 may have falsely elevated Potassium levels. ??For accurate Potassium quantification in these patients send serum separator tube (gold top) for subsequent determinations. ??Contact the Clinical Chemistry Laboratory if there are any questions. Chloride 100 98 - 107 mmol/L [facility] Carbon Dioxide 24 22 - 31 mmol/L [facility] Anion Gap 10 5 - 15 mmol/L [facility] Calcium 8.4(L) 8.5 - 10.5 mg/dL [facility] Est Glomerular Filtration Rate 143 >=60 mL/min/1. 73 m?? [facility] Comment: This patient's estimated GFR was [...] MD CHEMISTRY ORDER MYRANDA Performing Organization Address City/[facility]/ZIP Co de Phone Number [facility] [place] [address] * (ABNORMAL) Urinalysis Microscopic Exam (07/04/2022 3:05 AM EST) RBC, Urine 2 0 - 4 /HPF [facility] WBC, Urine 2 0 - 5 /HPF [facility] Squamous Epithelial Cells Raw Data, Urine 6(H) <=4 /HPF [facility] Triple Phosphate Crystal, Urine Occasional (A) None /HPF [facility] Clean Catch Urine 07/04/2022 3:05 AM EST 07/04/2022 3:10 AM EST Narrative Resulting Agency Comment Spec In Lab Yury Saavedra MD URINE ORDERABLES Performing Organization Address [facility] Co de Phone Number [facility] [place] [address] * (ABNORMAL) Urinalysis with reflex Culture (07/04/2022 3:05 AM EST) Glucose, Urine Dipstick Negative Negative mg/dL [facility] Protein, Urine Dipstick 30(A) Negative mg/dL [facility] Bilirubin, Urine Dipstick Negative Negative mg/dL [facility] Comment: Clinical correlation required for positive Urine Bilirubin results as false positive may occur with some drugs and drug related products. If a false positive is suspected a serum total bilirubin should be considered if clinically indicated. Urobilinogen, Urine Dipstick Normal Normal mg/dL [facility] pH, Urn (dipstick) 8.0 5.0 - 8.0 [facility] Blood, Urine Dipstick Negative Negative mg/dL [facility] Ketone, Urine Dipstick Negative Negative mg/dL [facility] Nitrite, Urine Dipstick Negative Negative [facility] Leukocytes, Urine Dipstick Trace(A) Negative [facility] Appearance, Urine Dipstick Cloudy(A) Clear [facility] Specific [place] Urine Automated >=1.030(A) 1.005 - 1.030 [facility] Color, Urine Dipstick Dark Yellow Yellow [facility] Reflex to Culture No [facility] Clean Catch Urine 07/04/2022 3:05 AM EST 07/04/2022 3:10 AM EST Narrative Resulting Agency Comment Spec In Lab Yury Saavedra MD URINE ORDERABLES Performing Organization Address City/[facility]/ZIP Co de Phone Number [facility] [place] [address] * (ABNORMAL) Lactate, whole blood, send to lab ([facility]) (07/04/2022 12:50 AM EST) Lactate WB 2.6(H) 0.5 - 2.2 mmol/L [facility] Blood 07/04/2022 12:5 0 AM EST 07/04/2022 1:02 AM EST Narrative Resulting Agency Comment Spec In Lab Yury Saavedra MD CHEMISTRY ORDERABLE S Performing Organization Address [facility] Co de Phone Number [facility] [place] [address] * EKG 12 Lead (07/04/2022 12:16 AM EST) Ventricular rate 152 BPM MUSE SYSTEM Atrial Rate 152 BPM MUSE SYSTEM P-R Interval 112 ms MUSE SYSTEM QRS Duration 66 ms MUSE SYSTEM Q-T Interval 328 ms MUSE SYSTEM QTC Calculated (Bezet) 521 ms MUSE SYSTEM Calculated P Hamilton 13 degrees MUSE SYSTEM Calculated R Hamilton 7 degrees MUSE SYSTEM Calculated T Hamilton 54 degrees MUSE SYSTEM INTERPRETATION Sinus tachycardia Nonspecific T wave abnormality Abnormal ECG When compared with ECG of 01-JUL-2022 14:17, No significant change was found I personally reviewed the tracing and edited the fellows interpretation Confirmed by fellow Ravinder Garcia ([id number]) on 07/07/2022 4:08:27 AM Confirmed by MD CONTRERAS SALVATORE ([id number]) on 07/07/2022 10:33:36 AM MUSE SYSTEM 07/04/2022 12:1 6 AM EST 07/07/2022 10:33 AM EDT Yruy Saavedra MD ECG ORDERABLES Performing Organization Address City/[facility]/ZIP Co de Phone Number MUSE SYSTEM * Lavender Tube HOLD (07/03/2022 11:05 PM EST) Lavender Hold Sample in lab. [facility] Blood Venous Draw / Unknown 07/03/2022 11:05 PM EST 07/03/2022 11:14 PM EST Yury Saavedra MD HEMATOLOGY ORDERABL ES Performing Organization Address [facility] Co de Phone Number [facility] [address] * (ABNORMAL) CRP, acute inflammation (07/03/2022 11:05 PM EST) C-Reactive Protein 73.7(H) <=4.9 mg/L [facility] Blood 07/03/2022 11:0 5 PM EST 07/03/2022 11:14 PM EST Narrative Resulting Agency Comment Spec In Lab Yury Saavedra MD CHEMISTRY ORDERABLE S Performing Organization Address [facility] Co de Phone Number [facility] [place] [address] * (ABNORMAL) Blood culture (07/03/2022 11:05 PM EST) Blood Culture Escherichia coli detected by PCR Isolate saved. If future testing is required, contact the Microbiology Lye Peel Operator. (A) [facility] Gram Stain Anaerobic Growth detected in anaerobic bottle. Gram Negative Rods seen Results called to and read back by Zoila Rincon RN (A) [facility] Organism Escherichia coli(A) [facility] Organism Gram Negative Rods(A) [facility] Blood STRUCTURE OF RIGHT HAND / [...] - BLOO D ORDERABLES Performing Organization Address City/[facility] Co de Phone Number [facility] [place] [address] * Blood culture (07/03/2022 10:45 PM EST) Blood Culture No growth at 5 days. [facility] Blood STRUCTURE OF LEFT HAND / Unknown 07/03/2022 10:45 PM EST 07/04/2022 Narrative Resulting Agency Comment Spec In Lab Yury Saavedra MD MICROBIOLOGY - BLOO D ORDERABLES Performing Organization Address [facility] Co de Phone Number [facility] [place] [address] * CT Lumbar Spine w Contrast (07/03/2022 [...] have questions please contact the health healthcare advisory services manager that requested your imaging first. ? Electronically signed by: Zina Renae MD, [facility] ([phone]), at 07/03/2022 6:31 PM Narrative 07/03/2022 6:31 [...] who have questions please contactthe health healthcare advisory services manager that requested your imaging first. Electronically signed by: Zina Renae MD, [facility]([phone]), at 07/03/2022 6:31 PM Ian Duarte MD [facility] CT ORDERABL ES * (ABNORMAL) Differential, Automated (07/03/2022 10:08 AM EST) Neutrophil % 50.0 % [facility] Neutrophil Absolute 1.61(L) 1.70 - 6.10 x10(3)/mc L [facility] Lymph % 37.0 % [facility] Lymphocytes Abs 1.2 0.9 - 3.2 x10(3)/mc L [facility] Monocyte % 10.9 % [facility] Monocyte Abs 0.4 0.3 - 0.9 x10(3)/mc L [facility] Eos % 0.9 % [facility] Eosinophils Abs 0.0 0.0 - 0.4 x10(3)/[facility] Basophil % 0.9 % [facility] Baso Absolute 0.0 0.0 - 0.1 x10(3)/[facility] Immature Gran % 0.30 % [facility] Comment: Immature granulocytes(IG's)percentage and absolute count will include metamyelocytes, myelocytes, and promyelocytes. Blood smears from CBCs yielding IG's will be scanned manually for concordance. If this scan disagrees with the automated IG or if promyelocytes are noted, a manual differential will be performed. Immature Gran Absolute 0.01 0.00 - 0.04 x10(3)/[facility] Blood 07/03/2022 10:0 8 AM EST 07/03/2022 10:19 AM EST Narrative Resulting Agency Comment Spec In Lab Ian Duarte MD HEMATOLOGY CLEO SALDANA [facility] [place] [address] * (ABNORMAL) Hemogram (07/03/2022 10:08 AM EST) White Blood Cell 3.2(L) 4.0 - 9.5 x10(3)/[facility] Red Blood Cell 4.08 4.00 - 5.21 x10(6)/ L [facility] Hemoglobin 9.9(L) 11.7 - 15.5 g/dL [facility] Hematocrit 32.2(L) 35.7 - 45.8 % [facility] Mean Cell Volume 78.9(L) 82.6 - 94.4 fL [facility] Mean Cell Hemoglobin 24.3(L) 27.1 - 32.0 pg [facility] Mean Cell Hemoglobin Concentration 30.7(L) 31.7 - 35.0 g/dL [facility] Platelet 307 145 - 357 x10(3)/mc L [facility] RDW Standard Deviation 53.3(H) 37.0 - 46.0 fL [facility] RDW coefficient of variation 19.0(H) 11.5 - 14.1 % [facility] Mean Platelet Volume 9.2 7.6 - 12.9 fL [facility] NRBC% auto 0.0 % [facility] NRBC Absolute 0.000 0.000 - 0.000 x10(3)/mc L [facility] Blood 07/03/2022 10:0 8 AM EST 07/03/2022 10:19 AM EST Narrative Resulting Agency Comment Spec In Lab Ian Duarte MD HEMATOLOGY CLEO SALDANA Performing Organization Address City/[facility] [place] [address] * (ABNORMAL) Sedimentation rate (07/03/2022 10:08 AM EST) Sedimentation Rate Automated 110(H) 2 - 37 mm/hr [facility] Comment: Effective April 06, 2019 new capillary photometric technology has resulted in a change in reference ranges. It is recommended that each ESR result be reviewed with its own age appropriate reference range. Blood 07/03/2022 10:0 8 AM EST 07/03/2022 10:19 AM EST Narrative Resulting Agency Comment Spec In Lab Ian Duarte MD HEMATOLOGY CLEO SALDANA Performing Organization Address [facility] Co de Phone Number [facility] [place] [address] * XR Chest One View (07/02/2022 5:04 [...] have questions please contact the health healthcare advisory services manager that requested your imaging first. ? Electronically signed by: Enid Vargas MD, [facility] ([phone]), at 07/02/2022 11:26 PM Narrative 07/02/2022 11:26 PM EST EXAMINATION: XR [...] who have questions please contactthe health healthcare advisory services manager that requested your imaging first. Electronically signed by: Enid Vargas MD, [facility]([phone]), at 07/02/2022 11:26 PM Ian Duarte MD IMG DX ORDERABL ES * (ABNORMAL) Urinalysis Microscopic Exam (07/02/2022 3:35 PM EST) RBC, Urine 7(H) 0 - 4 /HPF [facility] WBC, Urine 3 0 - 5 /HPF [facility] Squamous Epithelial Cells Raw Data, Urine 4 <=4 /HPF [facility] Hyaline Casts, Urine 3(H) 0 - 2 /LPF [facility] Straight Catheter Urine 07/02/2022 3:35 PM EST 07/02/2022 4:10 PM EST Narrative Resulting Agency Comment Spec In Lab Ina Duarte MD URINE ORDERABLE S [facility] [place] [address] * (ABNORMAL) Urinalysis with reflex Culture (07/02/2022 3:35 PM EST) Glucose, Urine Dipstick Negative Negative mg/dL [facility] Protein, Urine Dipstick Negative Negative mg/dL [facility] Bilirubin, Urine Dipstick Negative Negative mg/dL [facility] Comment: Clinical correlation required for positive Urine Bilirubin results as false positive may occur with some drugs and drug related products. If a false positive is suspected a serum total bilirubin should be considered if clinically indicated. Urobilinogen, Urine Dipstick Normal Normal mg/dL [facility] pH, Urn (dipstick) 7.5 5.0 - 8.0 [facility] Blood, Urine Dipstick Trace(A) Negative mg/dL [facility] Ketone, Urine Dipstick Negative Negative mg/dL [facility] Nitrite, Urine Dipstick Negative Negative [facility] Leukocytes, Urine Dipstick Negative Negative mcL [facility] Appearance, Urine Dipstick Clear Clear [facility] Specific [place] Urine Automated 1.016 1.005 - 1.030 [facility] Color, Urine Dipstick Yellow Yellow [facility] Reflex to Culture No [facility] Straight Catheter Urine 07/02/2022 3:35 PM EST 07/02/2022 4:10 PM EST Narrative Resulting Agency Comment Spec In Lab Ian Duarte [place] [address] * Differential, Automated (07/02/2022 6:15 AM EST) Neutrophil % 57.6 % [facility] Neutrophil Absolute 1.89 1.70 - 6.10 x10(3)/[facility] Lymph % 32.3 % [facility] Lymphocytes Abs 1.1 0.9 - 3.2 x10(3)/[facility] Monocyte % 9.5 % [facility] Monocyte Abs 0.3 0.3 - 0.9 x10(3)/[facility] Eos % 0.0 % [facility] Eosinophils Abs 0.0 0.0 - 0.4 x10(3)/[facility] Basophil % 0.3 % [facility] Baso Absolute 0.0 0.0 - 0.1 x10(3)/[facility] Immature Gran % 0.30 % [facility] Comment: Immature granulocytes(IG's)percentage and absolute count will include metamyelocytes, myelocytes, and promyelocytes. Blood smears from CBCs yielding IG's will be scanned manually for concordance. If this scan disagrees with the automated IG or if promyelocytes are noted, a manual differential will be performed. Immature Gran Absolute 0.01 0.00 - 0.04 x10(3)/[facility] Blood 07/02/2022 6:15 AM EST 07/02/2022 6:49 AM EST Narrative Resulting Agency Comment Spec In Lab Ian Duarte MD HEMATOLOGY ORDE RABLES [facility] [place] [address] * (ABNORMAL) Hemogram (07/02/2022 6:15 AM EST) White Blood Cell 3.3(L) 4.0 - 9.5 x10(3)/mc L [facility] Red Blood Cell 3.98(L) 4.00 - 5.21 x10(6)/mc L [facility] Hemoglobin 9.6(L) 11.7 - 15.5 g/dL [facility] Hematocrit 30.7(L) 35.7 - 45.8 % [facility] Mean Cell Volume 77.1(L) 82.6 - 94.4 fL [facility] Mean Cell Hemoglobin 24.1(L) 27.1 - 32.0 pg [facility] Mean Cell Hemoglobin Concentration 31.3(L) 31.7 - 35.0 g/dL [facility] Platelet 336 145 - 357 x10(3)/mc L [facility] RDW Standard Deviation 51.1(H) 37.0 - 46.0 fL [facility] RDW coefficient of variation 18.6(H) 11.5 - 14.1 % [facility] Mean Platelet Volume 9.1 7.6 - 12.9 fL [facility] NRBC% auto 0.0 % [facility] NRBC Absolute 0.000 0.000 - 0.000 x10(3)/mc L [facility] Blood 07/02/2022 6:15 AM EST 07/02/2022 6:49 AM EST Narrative Resulting Agency Comment Spec In Lab Ian Duarte MD HEMATOLOGY [facility]DE [facility] [place] [address] * TSH [place] (07/02/2022 6:15 AM EST) Thyroid Stimulating Hormone 1.45 0.27 - 4.20 mcIU/mL [facility] Comment: Reference Interval (mcIU/mL): Females: ??First Trimester: 0.23-3.88 ??Second Trimester: 0.22-3.90 ??Third Trimester: 0.44-4.66 Blood 07/02/2022 6:15 AM EST 07/02/2022 6:49 AM EST Narrative Resulting Agency Comment Spec In Lab Ian Duarte MD CHEMISTRY ORDER MYRANDA Performing Organization Address [facility] Co de Phone Number [facility] [place] [address] * (ABNORMAL) Basic Metabolic Panel (non-fasting) (07/02/2022 6:15 AM EST) Glucose 91 65 - 199 mg/dL [facility] Comment:Diabetes: >=200 mg/d L plus symptoms Blood Urea Nitrogen 5(L) 8 - 18 mg/dL [facility] Creatinine 0.24(L) 0.70 - 1.20 mg/dL [facility] Sodium 134(L) 135 - 145 mmol/L [facility] Potassium 4.0 3.5 - 5.0 mmol/L [facility] Comment: Please note: ??Patients with WBC >100,000 may have falsely elevated Potassium levels. ??For accurate Potassium quantification in these patients send serum separator tube (gold top) for subsequent determinations. ??Contact the Clinical Chemistry Laboratory if there are any questions. Chloride 100 98 - 107 mmol/L [facility] Carbon Dioxide 24 22 - 31 mmol/L [facility] Anion Gap 10 5 - 15 mmol/L [facility] Calcium 8.7 8.5 - 10.5 mg/dL [facility] Est Glomerular Filtration Rate 155 >=60 mL/min/1. 73 m?? [facility] Comment: This patient's estimated GFR was [...] MD CHEMISTRY ORDER MYRANDA Performing Organization Address City/[facility]/ZIP Co de Phone Number [facility] [place] [address] * (ABNORMAL) Sedimentation rate (07/02/2022 6:15 AM EST) Sedimentation Rate Automated 89(H) 2 - 37 mm/hr [facility] Comment: Effective April 06, 2019 new capillary photometric technology has resulted in a change in reference ranges. It is recommended that each ESR result be reviewed with its own age appropriate reference range. Blood 07/02/2022 6:15 AM EST 07/02/2022 6:49 AM EST Narrative Resulting Agency Comment Spec In Lab Ian Duarte MD HEMATOLOGY ORDE RABLES Performing Organization Address City/[facility]/ZIP Co de Phone Number [facility] [place] [address] * Blood culture (07/01/2022 8:21 PM EST) Pathologist [facility] Blood Culture No growth at 5 days. [facility] Blood 07/01/2022 8:21 PM EST 07/01/2022 8:57 PM EST Comment:RH Narrative Resulting Agency Comment Spec In Lab Ian Duarte MD MICROBIOLOGY - BLOOD ORDERABLES Performing Organization Address [facility] Co de Phone Number [facility] [place] [address] * Magnesium (07/01/2022 6:14 PM EST) Pathologist [facility] Magnesium 0.74 0.69 - 1.07 mmol/L [facility] Blood 07/01/2022 6:14 PM EST 07/01/2022 6:21 PM EST Narrative Resulting Agency Comment Spec In Lab Ian Duarte MD CHEMISTRY ORDER MYRANDA Performing Organization Address [facility] Co de Phone Number [facility] [place] [address] * Lactate, whole blood, send to lab ([facility]) (07/01/2022 6:14 PM EST) Pathologist [facility] Lactate WB 1.7 0.5 - 2.2 mmol/L [facility] Blood 07/01/2022 6:14 PM EST 07/01/2022 6:21 PM EST Narrative Resulting Agency Comment Spec In Lab Ian Duarte MD CHEMISTRY ORDER MYRANDA [facility] [place] [address] * IR Drain Check/Change/Remove (07/01/2022 3:35 PM [...] sterile barrier technique was used throughout. ?? [employer] Vault Attendant fluoroscopic images were obtained. ??Contrast was injected [...] (Bezet) 443 ms MUSE SYSTEM Calculated P Hamilton 37 degrees MUSE SYSTEM Calculated R Hamilton 62 degrees MUSE SYSTEM Calculated T Hamilton 19 degrees MUSE SYSTEM INTERPRETATION Sinus tachycardia Nonspecific T wave abnormality Otherwise normal ECG When compared with ECG of 29-JUN-2022 08:55, No significant change was found Confirmed by Lyndon Lafleur ([id number]) on 07/02/2022 5:10:53 PM MUSE SYSTEM 07/01/2022 2:17 PM EST 07/02/2022 5:10 PM EST Ian Duarte MD ECG ORDERABLES MUSE SYSTEM * Differential, Automated (07/01/2022 5:50 AM EST) Neutrophil % 75.5 % [facility] Neutrophil Absolute 4.41 1.70 - 6.10 x10(3)/mcL [facility] Lymph % 15.0 % [facility] Lymphocytes Abs 0.9 0.9 - 3.2 x10(3)/[facility] Monocyte % 7.7 % [facility] Monocyte Abs 0.4 0.3 - 0.9 x10(3)/[facility] Eos % 1.0 % [facility] Eosinophils Abs 0.1 0.0 - 0.4 x10(3)/[facility] Basophil % 0.5 % [facility] Baso Absolute 0.0 0.0 - 0.1 x10(3)/[facility] Immature Gran % 0.30 % [facility] Comment: Immature granulocytes(IG's)percentage and absolute count will include metamyelocytes, myelocytes, and promyelocytes. Blood smears from CBCs yielding IG's will be scanned manually for concordance. If this scan disagrees with the automated IG or if promyelocytes are noted, a manual differential will be performed. Immature Gran Absolute 0.02 0.00 - 0.04 x10(3)/[facility] Blood 07/01/2022 5:50 AM EST 07/01/2022 6:17 AM EST Narrative Resulting Agency Comment Spec In Lab Estevan Alfaro MD HEMATOLOGY ORDERABLE S [facility] [place] [address] * (ABNORMAL) Hemogram (07/01/2022 5:50 AM EST) White Blood Cell 5.8 4.0 - 9.5 x10(3)/mc L [facility] Red Blood Cell 3.84(L) 4.00 - 5.21 x10(6)/mc L [facility] Hemoglobin 9.3(L) 11.7 - 15.5 g/dL [facility] Hematocrit 29.6(L) 35.7 - 45.8 % [facility] Mean Cell Volume 77.1(L) 82.6 - 94.4 fL [facility] Mean Cell Hemoglobin 24.2(L) 27.1 - 32.0 pg [facility] Mean Cell Hemoglobin Concentration 31.4(L) 31.7 - 35.0 g/dL [facility] Platelet 352 145 - 357 x10(3)/mc L [facility] RDW Standard Deviation 51.2(H) 37.0 - 46.0 fL [facility] RDW coefficient of variation 18.6(H) 11.5 - 14.1 % [facility] Mean Platelet Volume 9.3 7.6 - 12.9 fL [facility] NRBC% auto 0.0 % [facility] NRBC Absolute 0.000 0.000 - 0.000 x10(3)/mc L [facility] Blood 07/01/2022 5:50 AM EST 07/01/2022 6:17 AM EST Narrative Resulting Agency Comment Spec In Lab Estevan Alfaro MD HEMATOLOGY ORDERABLE S [facility] [place] [address] * (ABNORMAL) CRP, acute inflammation (07/01/2022 5:50 AM EST) C-Reactive Protein 53.1(H) <=4.9 mg/L [facility] Comment:result rechecked-KS Blood 07/01/2022 5:50 AM EST 07/01/2022 6:17 AM EST Narrative Resulting Agency Comment Spec In Lab Ian Duarte MD CHEMISTRY ORDER MYRANDA [facility] [place] [address] * (ABNORMAL) Sedimentation rate (07/01/2022 5:50 AM EST) Sedimentation Rate Automated >119(H) 2 - 37 mm/hr [facility] Comment: Effective April 06, 2019 new capillary photometric technology has resulted in a change in reference ranges. It is recommended that each ESR result be reviewed with its own age appropriate reference range. Blood 07/01/2022 5:50 AM EST 07/01/2022 6:17 AM EST Narrative Resulting Agency Comment Spec In Lab Ian Duarte [facility] [place] [address] * (ABNORMAL) BMP w/fasting Glucose (07/01/2022 5:50 AM EST) Glucose Fasting 95 65 - 99 mg/dL [facility] Comment: ?Fasting* Glucose Interpretive Criteria Normal [...] of Diabetes Mellitus, Position Statement from the [employer]. ??Diabetes Care, Volume 33, Supplement 1, Apr 2009 Blood Urea Nitrogen 10 8 - 18 mg/dL [facility] Creatinine 0.25(L) 0.70 - 1.20 mg/dL [facility] Sodium 138 135 - 145 mmol/L [facility] Potassium 4.1 3.5 - 5.0 mmol/L [facility] Comment: Please note: ??Patients with WBC >100,000 may have falsely elevated Potassium levels. ??For accurate Potassium quantification in these patients send serum separator tube (gold top) for subsequent determinations. ??Contact the Clinical Chemistry Laboratory if there are any questions. Chloride 103 98 - 107 mmol/L [facility] Carbon Dioxide 24 22 - 31 mmol/L [facility] Anion Gap 11 5 - 15 mmol/L [facility] Calcium 9.0 8.5 - 10.5 mg/dL [facility] Est Glomerular Filtration Rate 154 >=60 mL/min/1. 73 m?? [facility] Comment: This patient's estimated [...] In Lab Estevan Alfaro MD CHEMISTRY ORDERABLES [facility] [place] [address] * Differential, Automated (06/30/2022 4:29 AM EST) Neutrophil % 57.6 % [facility] Neutrophil Absolute 3.68 1.70 - 6.10 x10(3)/[facility] Lymph % 33.2 % [facility] Lymphocytes Abs 2.1 0.9 - 3.2 x10(3)/[facility] Monocyte % 7.0 % [facility] Monocyte Abs 0.4 0.3 - 0.9 x10(3)/[facility] Eos % 1.4 % [facility] Eosinophils Abs 0.1 0.0 - 0.4 x10(3)/[facility] Basophil % 0.5 % [facility] Baso Absolute 0.0 0.0 - 0.1 x10(3)/[facility] Immature Gran % 0.30 % [facility] Comment: Immature granulocytes(IG's)percentage and absolute count will include metamyelocytes, myelocytes, and promyelocytes. Blood smears from CBCs yielding IG's will be scanned manually for concordance. If this scan disagrees with the automated IG or if promyelocytes are noted, a manual differential will be performed. Immature Gran Absolute 0.02 0.00 - 0.04 x10(3)/[facility] Blood 06/30/2022 4:29 AM EST 06/30/2022 4:51 AM EST Narrative Resulting Agency Comment Spec In Lab Estevan Alfaro MD HEMATOLOGY ORDERABLE S [facility] [place] [address] * (ABNORMAL) Hemogram (06/30/2022 4:29 AM EST) White Blood Cell 6.4 4.0 - 9.5 x10(3)/ L [facility] Red Blood Cell 3.96(L) 4.00 - 5.21 x10(6)/mc L [facility] Hemoglobin 9.4(L) 11.7 - 15.5 g/dL [facility] Hematocrit 30.4(L) 35.7 - 45.8 % [facility] Mean Cell Volume 76.8(L) 82.6 - 94.4 fL [facility] Mean Cell Hemoglobin 23.7(L) 27.1 - 32.0 pg [facility] Mean Cell Hemoglobin Concentration 30.9(L) 31.7 - 35.0 g/dL [facility] Platelet 349 145 - 357 x10(3)/mc L [facility] RDW Standard Deviation 50.4(H) 37.0 - 46.0 fL [facility] RDW coefficient of variation 18.4(H) 11.5 - 14.1 % [facility] Mean Platelet Volume 9.3 7.6 - 12.9 fL [facility] NRBC% auto 0.0 % [facility] NRBC Absolute 0.000 0.000 - 0.000 x10(3)/[facility] Blood 06/30/2022 4:29 AM EST 06/30/2022 4:51 AM EST Narrative Resulting Agency Comment Spec In Lab Estevan Alfaro MD HEMATOLOGY ORDERABLE S [facility] [place] [address] * (ABNORMAL) BMP w/fasting Glucose (06/30/2022 4:29 AM EST) Glucose Fasting 86 65 - 99 mg/dL [facility] Comment: ?Fasting* Glucose Interpretive Criteria Normal [...] of Diabetes Mellitus, Position Statement from the [employer]. ??Diabetes Care, Volume 33, Supplement 1, Apr 2009 Blood Urea Nitrogen 11 8 - 18 mg/dL [facility] Creatinine 0.22(L) 0.70 - 1.20 mg/dL [facility] Sodium 142 135 - 145 mmol/L [facility] Potassium 3.7 3.5 - 5.0 mmol/L [facility] Comment: Please note: ??Patients with WBC >100,000 may have falsely elevated Potassium levels. ??For accurate Potassium quantification in these patients send serum separator tube (gold top) for subsequent determinations. ??Contact the Clinical Chemistry Laboratory if there are any questions. Chloride 105 98 - 107 mmol/L [facility] Carbon Dioxide 25 22 - 31 mmol/L [facility] Anion Gap 12 5 - 15 mmol/L [facility] Calcium 8.9 8.5 - 10.5 mg/dL [facility] Est Glomerular Filtration Rate 159 >=60 mL/min/1. 73 m?? [facility] Comment: This patient's estimated GFR was [...] Alfaro MD CHEMISTRY ORDERABLES Performing Organization Address City/[facility]/ZIP Co de Phone Number [facility] [place] [address] * EKG 12 Lead (06/29/2022 8:55 AM EST) Ventricular rate 112 BPM MUSE SYSTEM Atrial Rate 112 BPM MUSE SYSTEM P-R Interval 124 ms MUSE SYSTEM QRS Duration 78 ms MUSE SYSTEM Q-T Interval 336 ms MUSE SYSTEM QTC Calculated (Bezet) 458 ms MUSE SYSTEM Calculated P Hamilton 22 degrees MUSE SYSTEM Calculated R Hamilton 8 degrees MUSE SYSTEM Calculated T Hamilton 69 degrees MUSE SYSTEM INTERPRETATION Sinus tachycardia Nonspecific T wave abnormality Abnormal ECG When compared with ECG of 26-JUN-2022 20:46, Minimal criteria for Inferior infarct are no longer Present Nonspecific T wave abnormality, worse in Lateral leads Confirmed by MD Shabazz Danette ([id number]) on 06/29/2022 9:49:48 PM MUSE SYSTEM 06/29/2022 8:55 AM EST 06/29/2022 9:49 PM EST Estevan Alfaro MD ECG ORDERABLES Performing Organization Address City/[facility]/ZIP Co de Phone Number MUSE SYSTEM * TSH (06/29/2022 5:58 AM EST) Thyroid Stimulating Hormone 1.84 0.27 - 4.20 mcIU/mL [facility] Comment: Reference Interval (mcIU/mL): Females: ??First Trimester: 0.23-3.88 ??Second Trimester: 0.22-3.90 ??Third Trimester: 0.44-4.66 Blood Venous Draw / Unknown 06/29/2022 5:58 AM EST 06/29/2022 6:10 AM EST Narrative Resulting Agency Comment Spec In Lab Estevan Alfaro MD CHEMISTRY ORDERABLES [facility] [place] [address] * Magnesium (06/29/2022 5:58 AM EST) Magnesium 0.88 0.69 - 1.07 mmol/L [facility] Blood Venous Draw / Unknown 06/29/2022 5:58 AM EST 06/29/2022 6:10 AM EST Narrative Resulting Agency Comment Spec In Lab Estevan Alfaro MD CHEMISTRY ORDERABLES Performing Organization Address City/[facility]/[place] [address] * Differential, Automated (06/29/2022 5:58 AM EST) [facility] Neutrophil % 61.0 % [facility] Neutrophil Absolute 3.44 1.70 - 6.10 x10(3)/[facility] Lymph % 26.5 % [facility] Lymphocytes Abs 1.5 0.9 - 3.2 x10(3)/[facility] Monocyte % 9.0 % [facility] Monocyte Abs 0.5 0.3 - 0.9 x10(3)/[facility] Eos % 2.1 % [facility] Eosinophils Abs 0.1 0.0 - 0.4 x10(3)/[facility] Basophil % 0.9 % [facility] Baso Absolute 0.0 0.0 - 0.1 x10(3)/[facility] Immature Gran % 0.50 % [facility] Comment: Immature granulocytes(IG's)percentage and absolute count will include metamyelocytes, myelocytes, and promyelocytes. Blood smears from CBCs yielding IG's will be scanned manually for concordance. If this scan disagrees with the automated IG or if promyelocytes are noted, a manual differential will be performed. Immature Gran Absolute 0.03 0.00 - 0.04 x10(3)/[facility] Blood 06/29/2022 5:58 AM EST 06/29/2022 6:06 AM EST Narrative Resulting Agency Comment Spec In Lab Estevan Alfaro MD HEMATOLOGY ORDERABLE S Performing Organization Address City/[facility]/ZIP Co de Phone Number [place] [address] * (ABNORMAL) Hemogram (06/29/2022 5:58 AM EST) White Blood Cell 5.6 4.0 - 9.5 x10(3)/ L [facility] Red Blood Cell 4.11 4.00 - 5.21 x10(6)/ L [facility] Hemoglobin 9.8(L) 11.7 - 15.5 g/dL [facility] Hematocrit 31.7(L) 35.7 - 45.8 % [facility] Mean Cell Volume 77.1(L) 82.6 - 94.4 fL [facility] Mean Cell Hemoglobin 23.8(L) 27.1 - 32.0 pg [facility] Mean Cell Hemoglobin Concentration 30.9(L) 31.7 - 35.0 g/dL [facility] Platelet 345 145 - 357 x10(3)/ L [facility] RDW Standard Deviation 50.5(H) 37.0 - 46.0 fL [facility] RDW coefficient of variation 18.3(H) 11.5 - 14.1 % [facility] Mean Platelet Volume 9.2 7.6 - 12.9 fL [facility] NRBC% auto 0.0 % [facility] NRBC Absolute 0.000 0.000 - 0.000 x10(3)/[facility] Blood 06/29/2022 5:58 AM EST 06/29/2022 6:06 AM EST Narrative Resulting Agency Comment Spec In Lab Estevan Alfaro MD HEMATOLOGY ORDERABLE S [facility] [place] [address] * (ABNORMAL) BMP w/fasting Glucose (06/29/2022 5:58 AM EST) Glucose Fasting 90 65 - 99 mg/dL [facility] Comment: ?Fasting* Glucose Interpretive Criteria Normal [...] of Diabetes Mellitus, Position Statement from the [place] [employer]. ??Diabetes Care, Volume 33, Supplement 1, Apr 2009 Blood Urea Nitrogen 11 8 - 18 mg/dL [facility] Creatinine 0.25(L) 0.70 - 1.20 mg/dL [facility] Sodium 134(L) 135 - 145 mmol/L [facility] Potassium 4.1 3.5 - 5.0 mmol/L [facility] Comment: Please note: ??Patients with WBC >100,000 may have falsely elevated Potassium levels. ??For accurate Potassium quantification in these patients send serum separator tube (gold top) for subsequent determinations. ??Contact the Clinical Chemistry Laboratory if there are any questions. Chloride 102 98 - 107 mmol/L [facility] Carbon Dioxide 21(L) 22 - 31 mmol/L [facility] Anion Gap 11 5 - 15 mmol/L [facility] Calcium 9.0 8.5 - 10.5 mg/dL [facility] Est Glomerular Filtration Rate 154 >=60 mL/min/1. 73 m?? [facility] Comment: This patient's estimated GFR was [...] In Lab Estevan Alfaro MD CHEMISTRY ORDERABLES [facility] [place] [address] * (ABNORMAL) Respiratory Panel PCR (06/28/2022 2:58 PM EST) Respiratory Panel Source [employer] [facility] Respiratory Panel PCR Positive(A) Negative [facility] Comment: Respiratory Panels are performed on the [employer], using multiplexed PCR nucleic acid detection. ??Negative results do not preclude respiratory infection and should not be used as the sole basis for diagnosis, treatment or other management decisions. Adenovirus Not Detected Not Detected [facility] Coronavirus HKU1 Not Detected Not Detected [facility] [place] Coronavirus NL63 Not Detected Not Detected [facility] [place] Coronavirus 229E Not Detected Not Detected [facility] Coronavirus OC43 Not Detected Not Detected [facility] SARS-CoV-2 Not Detected Not Detected [facility] Comment: Testing for SARS-CoV-2 (Severe acute respiratory syndrome coronavirus 2) to aid in the diagnosis of COVID-19 is performed using the BioFire Respiratory Panel 2.1 (u.sit) as authorized by the FDA issued Emergency Use Authorization (EUA). This panel also tests for multiple other viral and bacterial pathogens. This assay is intended for In-vitro Diagnostic (IVD) use with nasopharyngeal swabs in viral transport media. The assay is performed based on the instructions for use and additional guidance provided by the FDA. Testing is performed in laboratories within the [facility], each of which is certified under the [...] fact sheets at the following FDA website: https://www.fda.gov/medical-devices/allwexdwicf-huotefk-3927-wmtjq-39-xugcinsmm- use-a pbvimmygfxvaj-xzfmsia-ogtbcpk/rakuz-zbzwfrnfott-mpul Human Metapneumovirus Not Detected Not Detected [facility] Human Rhinovirus/Enterov irus Not Detected Not Detected [facility] Influenza A Not Detected Not Detected [facility] Influenza B Not Detected Not Detected [facility] Parainfluenza 1 Not Detected Not Detected [facility] Parainfluenza 2 Not Detected Not Detected [facility] Parainfluenza 3 Detected(A) Not Detected [facility] Parainfluenza 4 Not Detected Not Detected [facility] Respiratory Syncytial Virus Not Detected Not Detected [facility] Chlamydophila pneumoniae Not Detected Not Detected [facility] Mycoplasma pneumoniae Not Detected Not Detected [facility] Nasopharyngeal Swab 06/29/19 2:58 PM EST 06/28/2022 4:24 PM EST Narrative Resulting Agency Comment Spec In Lab Estevan Alfaro MD MICROBIOLOGY - GENER AL ORDERABLES [facility] [place] [address] * Differential, Automated (06/28/2022 5:38 AM EST) Neutrophil % 54.1 % [facility] Neutrophil Absolute 3.04 1.70 - 6.10 x10(3)/[facility] Lymph % 34.3 % [facility] Lymphocytes Abs 1.9 0.9 - 3.2 x10(3)/[facility] Monocyte % 8.7 % [facility] Monocyte Abs 0.5 0.3 - 0.9 x10(3)/[facility] Eos % 2.0 % [facility] Eosinophils Abs 0.1 0.0 - 0.4 x10(3)/[facility] Basophil % 0.5 % [facility] Baso Absolute 0.0 0.0 - 0.1 x10(3)/[facility] Immature Gran % 0.40 % [facility] Comment: Immature granulocytes(IG's)percentage and absolute count will include metamyelocytes, myelocytes, and promyelocytes. Blood smears from CBCs yielding IG's will be scanned manually for concordance. If this scan disagrees with the automated IG or if promyelocytes are noted, a manual differential will be performed. Immature Gran Absolute 0.02 0.00 - 0.04 x10(3)/[facility] Blood 06/28/2022 5:38 AM EST 06/28/2022 5:54 AM EST Narrative Resulting Agency Comment Spec In Lab Anurag Call DO HEMATOLOGY ORDERABLE S Performing Organization Address City/State/[facility] Co de Phone Number [facility] [place] [address] * (ABNORMAL) Hemogram (06/28/2022 5:38 AM EST) White Blood Cell 5.6 4.0 - 9.5 x10(3)/mc L [facility] Red Blood Cell 4.08 4.00 - 5.21 x10(6)/mc L [facility] Hemoglobin 9.9(L) 11.7 - 15.5 g/dL [facility] Hematocrit 31.6(L) 35.7 - 45.8 % [facility] Mean Cell Volume 77.5(L) 82.6 - 94.4 fL [facility] Mean Cell Hemoglobin 24.3(L) 27.1 - 32.0 pg [facility] Mean Cell Hemoglobin Concentration 31.3(L) 31.7 - 35.0 g/dL [facility] Platelet 371(H) 145 - 357 x10(3)/mc L [facility] RDW Standard Deviation 50.5(H) 37.0 - 46.0 fL [facility] RDW coefficient of variation 18.2(H) 11.5 - 14.1 % [facility] Mean Platelet Volume 9.3 7.6 - 12.9 fL [facility] NRBC% auto 0.0 % [facility] NRBC Absolute 0.000 0.000 - 0.000 x10(3)/mc L [facility] Blood 06/28/2022 5:38 AM EST 06/28/2022 5:54 AM EST Narrative Resulting Agency Comment Spec In Lab Anurag Call DO HEMATOLOGY ORDERABLE S Performing Organization Address [facility] Co de Phone Number [facility] [place] [address] * Magnesium (06/28/2022 5:38 AM EST) Magnesium 0.78 0.69 - 1.07 mmol/L [facility] Blood 06/28/2022 5:38 AM EST 06/28/2022 5:54 AM EST Narrative Resulting Agency Comment Spec In Lab Anurag Call DO CHEMISTRY ORDERABLES Performing Organization Address [facility] de Phone Number [facility] [place] [address] * (ABNORMAL) Basic Metabolic Panel (non-fasting) (06/28/2022 5:38 AM EST) Glucose 95 65 - 199 mg/dL [facility] Comment:Diabetes: >=200 mg/d L plus symptoms Blood Urea Nitrogen 11 8 - 18 mg/dL [facility] Creatinine 0.27(L) 0.70 - 1.20 mg/dL [facility] Sodium 137 135 - 145 mmol/L [facility] Potassium 4.0 3.5 - 5.0 mmol/L [facility] Comment: Please note: ??Patients with WBC >100,000 may have falsely elevated Potassium levels. ??For accurate Potassium quantification in these patients send serum separator tube (gold top) for subsequent determinations. ??Contact the Clinical Chemistry Laboratory if there are any questions. Chloride 102 98 - 107 mmol/L [facility] Carbon Dioxide 25 22 - 31 mmol/L [facility] Anion Gap 10 5 - 15 mmol/L [facility] Calcium 9.1 8.5 - 10.5 mg/dL [facility] Est Glomerular Filtration Rate 151 >=60 mL/min/1. 73 m?? [facility] Comment: This patient's estimated GFR was [...] Call DO CHEMISTRY ORDERABLES Performing Organization Address [facility] Co de Phone Number [facility] [place] [address] * (ABNORMAL) CRP, acute inflammation (06/28/2022 5:38 AM EST) C-Reactive Protein 53.8(H) <=4.9 mg/L [facility] Blood 06/28/2022 5:38 AM EST 06/28/2022 5:54 AM EST Narrative Resulting Agency Comment Spec In Lab Anurag Call DO CHEMISTRY ORDERABLES Performing Organization Address [facility]/ZIP Co de Phone Number [facility] [place] [address] * (ABNORMAL) Sedimentation rate (06/28/2022 5:38 AM EST) Sedimentation Rate Automated 113(H) 2 - 37 mm/hr [facility] Comment: Effective April 06, 2019 new capillary photometric technology has resulted in a change in reference ranges. It is recommended that each ESR result be reviewed with its own age appropriate reference range. Blood 06/28/2022 5:38 AM EST 06/28/2022 5:54 AM EST Narrative Resulting Agency Comment Spec In Lab Anurag Call DO HEMATOLOGY ORDERABLE S [facility] [place] [address] * Differential, Automated (06/27/2022 5:58 AM EST) Neutrophil % 50.4 % [facility] Neutrophil Absolute 2.79 1.70 - 6.10 x10(3)/[facility] Lymph % 38.7 % [facility] Lymphocytes Abs 2.1 0.9 - 3.2 x10(3)/[facility] Monocyte % 8.0 % [facility] Monocyte Abs 0.4 0.3 - 0.9 x10(3)/[facility] Eos % 1.8 % [facility] Eosinophils Abs 0.1 0.0 - 0.4 x10(3)/[facility] Basophil % 0.7 % [facility] Baso Absolute 0.0 0.0 - 0.1 x10(3)/[facility] Immature Gran % 0.40 % [facility] Comment: Immature granulocytes(IG's)percentage and absolute count will include metamyelocytes, myelocytes, and promyelocytes. Blood smears from CBCs yielding IG's will be scanned manually for concordance. If this scan disagrees with the automated IG or if promyelocytes are noted, a manual differential will be performed. Immature Gran Absolute 0.02 0.00 - 0.04 x10(3)/[facility] Blood 06/27/2022 5:58 AM EST 06/27/2022 6:24 AM EST Narrative Resulting Agency Comment Spec In Lab Eddi Vázquez MD HEMATOLOGY ORDERABLE S [facility] [place] [address] * (ABNORMAL) Hemogram (06/27/2022 5:58 AM EST) White Blood Cell 5.5 4.0 - 9.5 x10(3)/mc L [facility] Red Blood Cell 3.85(L) 4.00 - 5.21 x10(6)/mc L [facility] Hemoglobin 9.2(L) 11.7 - 15.5 g/dL [facility] Hematocrit 30.0(L) 35.7 - 45.8 % [facility] Mean Cell Volume 77.9(L) 82.6 - 94.4 fL [facility] Mean Cell Hemoglobin 23.9(L) 27.1 - 32.0 pg [facility] Mean Cell Hemoglobin Concentration 30.7(L) 31.7 - 35.0 g/dL [facility] Platelet 389(H) 145 - 357 x10(3)/mc L [facility] RDW Standard Deviation 50.5(H) 37.0 - 46.0 fL [facility] RDW coefficient of variation 17.9(H) 11.5 - 14.1 % [facility] Mean Platelet Volume 9.4 7.6 - 12.9 fL [facility] NRBC% auto 0.0 % [facility] NRBC Absolute 0.000 0.000 - 0.000 x10(3)/mc L [facility] Blood 06/27/2022 5:58 AM EST 06/27/2022 6:24 AM EST Narrative Resulting Agency Comment Spec In Lab Eddi Vázquez MD HEMATOLOGY ORDERABLE S [facility] [place] [address] * (ABNORMAL) Basic Metabolic Panel (non-fasting) (06/27/2022 5:58 AM EST) Glucose 97 65 - 199 mg/dL [facility] Comment:Diabetes: >=200 mg/d L plus symptoms Blood Urea Nitrogen 12 8 - 18 mg/dL [facility] Creatinine 0.32(L) 0.70 - 1.20 mg/dL [facility] Sodium 138 135 - 145 mmol/L [facility] Potassium 3.9 3.5 - 5.0 mmol/L [facility] Comment: Please note: ??Patients with WBC >100,000 may have falsely elevated Potassium levels. ??For accurate Potassium quantification in these patients send serum separator tube (gold top) for subsequent determinations. ??Contact the Clinical Chemistry Laboratory if there are any questions. Chloride 102 98 - 107 mmol/L [facility] Carbon Dioxide 25 22 - 31 mmol/L [facility] Anion Gap 11 5 - 15 mmol/L [facility] Calcium 9.2 8.5 - 10.5 mg/dL [facility] Est Glomerular Filtration Rate 145 >=60 mL/min/1. 73 m?? [facility] Comment: This patient's estimated GFR was [...] In Lab Eddi Vázquez MD CHEMISTRY ORDERABLES [facility] [place] [address] * (ABNORMAL) Blood Gas Venous (NL) (06/26/2022 9:01 PM EST) pH, Venous 7.45(H) 7.32 - 7.42 [facility] PCO2, Venous 40(L) 41 - 51 mmHg [facility] PO2, Venous 70(H) 25 - 40 mmHg [facility] Bicarbonate, Venous 27.2 mmol/L [facility] Base Excess, Venous 3.2 mmol/L [facility] Hgb Blood Gas 11.5(L) 11.7 - 15.5 g/dL [facility] Oxyhemoglobin, Venous 94.6 % [facility] Carboxyhemoglob in, Venous 0.1 % [facility] Comment: Nonsmokers: 0.5-1.5% COHB Smokers: Variable, but usually less than 10% Toxic: 20-30% COHB Lethal: Greater than 60% COHB Methemoglobin, Venous 0.3 <=1.5 % [facility] Na Whole Blood 140 135 - 145 mmol/L [facility] K Whole Blood 4.2 3.5 - 5.0 mmol/L [facility] Comment: Please note: Patients with WBC >100,000 may have falsely elevated Potassium levels. Contact the Clinical Chemistry Laboratory if there are any questions. ICa Whole Blood 1.20 1.15 - 1.33 mmol/L [facility] Comment: Note: ??Total bilirubin higher than 20 mg/dL may lead to falsely low ionized calcium. CL Whole Blood 101 98 - 107 mmol/L [facility] Gluc Whole Bld 98 65 - 199 mg/dL [facility] Comment:Diabetes: >=200 mg/d L plus symptoms Lactate WB 1.3 0.5 - 2.2 mmol/L [facility] Blood Gas Source Venous [facility] Blood Venous Draw / Unknown 06/26/2022 9:01 PM EST 06/26/2022 9:07 PM EST Narrative Resulting Agency Comment Spec In Lab Mayank Kang MD CHEMISTRY ORDERABLES [facility] [place] [address] * EKG 12 Lead (06/26/2022 8:46 PM EST) Ventricular rate 136 BPM MUSE SYSTEM Atrial Rate 136 BPM MUSE SYSTEM P-R Interval 126 ms MUSE SYSTEM QRS Duration 72 ms MUSE SYSTEM Q-T Interval 298 ms MUSE SYSTEM QTC Calculated (Bezet) 448 ms MUSE SYSTEM Calculated P Hamilton 35 degrees MUSE SYSTEM Calculated R Hamilton 7 degrees MUSE SYSTEM Calculated T Hamilton 52 degrees MUSE SYSTEM INTERPRETATION Sinus tachycardia Abnormal ECG Confirmed by Altagracia Palomo ([id number]) on 06/27/2022 3:21:46 PM MUSE SYSTEM 06/26/2022 8:46 PM EST 06/27/2022 3:21 PM EST Mayank Kang MD ECG ORDERABLES MUSE SYSTEM * Differential, Automated (06/26/2022 5:38 AM EST) Neutrophil % 55.3 % [facility] Neutrophil Absolute 2.95 1.70 - 6.10 x10(3)/[facility] Lymph % 34.1 % [facility] Lymphocytes Abs 1.8 0.9 - 3.2 x10(3)/[facility] Monocyte % 8.1 % [facility] Monocyte Abs 0.4 0.3 - 0.9 x10(3)/[facility] Eos % 1.7 % [facility] Eosinophils Abs 0.1 0.0 - 0.4 x10(3)/[facility] Basophil % 0.6 % [facility] Baso Absolute 0.0 0.0 - 0.1 x10(3)/[facility] Immature Gran % 0.20 % [facility] Comment: Immature granulocytes(IG's)percentage and absolute count will include metamyelocytes, myelocytes, and promyelocytes. Blood smears from CBCs yielding IG's will be scanned manually for concordance. If this scan disagrees with the automated IG or if promyelocytes are noted, a manual differential will be performed. Immature Gran Absolute 0.01 0.00 - 0.04 x10(3)/[facility] Blood 06/26/2022 5:38 AM EST 06/26/2022 6:21 AM EST Narrative Resulting Agency Comment Spec In Lab Eddi Vázquez MD HEMATOLOGY ORDERABLE S [facility] [place] [address] * (ABNORMAL) Hemogram (06/26/2022 5:38 AM EST) White Blood Cell 5.3 4.0 - 9.5 x10(3)/mc L [facility] Red Blood Cell 4.30 4.00 - 5.21 x10(6)/mc L [facility] Hemoglobin 10.1(L) 11.7 - 15.5 g/dL [facility] Hematocrit 33.5(L) 35.7 - 45.8 % [facility] Mean Cell Volume 77.9(L) 82.6 - 94.4 fL [facility] Mean Cell Hemoglobin 23.5(L) 27.1 - 32.0 pg [facility] Mean Cell Hemoglobin Concentration 30.1(L) 31.7 - 35.0 g/dL [facility] Platelet 467(H) 145 - 357 x10(3)/mc L [facility] RDW Standard Deviation 50.8(H) 37.0 - 46.0 fL [facility] RDW coefficient of variation 18.1(H) 11.5 - 14.1 % [facility] Mean Platelet Volume 9.4 7.6 - 12.9 fL [facility] NRBC% auto 0.0 % [facility] NRBC Absolute 0.000 0.000 - 0.000 x10(3)/ L [facility] Blood 06/26/2022 5:38 AM EST 06/26/2022 6:21 AM EST Narrative Resulting Agency Comment Spec In Lab Eddi Vázquez MD HEMATOLOGY ORDERABLE S [facility] [place] [address] * (ABNORMAL) Basic Metabolic Panel (non-fasting) (06/26/2022 5:38 AM EST) Glucose 97 65 - 199 mg/dL [facility] Comment:Diabetes: >=200 mg/d L plus symptoms Blood Urea Nitrogen 12 8 - 18 mg/dL [facility] Creatinine 0.28(L) 0.70 - 1.20 mg/dL [facility] Sodium 141 135 - 145 mmol/L [facility] Potassium 4.2 3.5 - 5.0 mmol/L [facility] Comment: Please note: ??Patients with WBC >100,000 may have falsely elevated Potassium levels. ??For accurate Potassium quantification in these patients send serum separator tube (gold top) for subsequent determinations. ??Contact the Clinical Chemistry Laboratory if there are any questions. Chloride 103 98 - 107 mmol/L [facility] Carbon Dioxide 26 22 - 31 mmol/L [facility] Anion Gap 12 5 - 15 mmol/L [facility] Calcium 9.3 8.5 - 10.5 mg/dL [facility] Est Glomerular Filtration Rate 150 >=60 mL/min/1. 73 m?? [facility] Comment: This patient's estimated GFR was [...] Vázquez MD CHEMISTRY ORDERABLES Performing Organization Address City/State/[facility] Co de Phone Number [facility] [place] [address] * IR All Drainage Procedures (06/25/2022 4:45 [...] 25 cc. Fluoroscopy time: ?? Please see [facility] IR technologist record for procedural dose/time. [...] ??The tract was dilated, and an 8 Finnish drain was advanced over the wire into [...] aspiration demonstrated shiraz pus, and an 8 Finnish drain was placed using ultrasound guidance as above. I, the attending Interventional Radiologist performed the entire procedure. ?? Eddi Vázquez MD IMG IR ORDERABLES * Anaerobic Culture (06/25/2022 3:12 PM EST) Anaerobic Culture No anaerobic organisms isolated [facility] Fluid 06/25/2022 3:12 PM EST 06/25/2022 5:21 PM EST Comment:Inferior spinal flui d collection Narrative Resulting Agency Comment Spec In Lab Anurag Call DO MICROBIOLOGY - GENER AL ORDERABLES Performing Organization Address [facility] [place] [address] * Body Fluid Culture, Aerobic (06/25/2022 3:12 PM EST) Body Fluid Culture No growth [facility] Gram Stain Many Neutrophils seen No microorganisms seen. [facility] Fluid 06/25/2022 3:12 PM EST 06/25/2022 5:21 PM EST Comment:Inferior spinal flui d collection Narrative Resulting Agency Comment Spec In Lab Anurag Call DO MICROBIOLOGY - GENER AL ORDERABLES Performing Organization Address [facility] [place] [address] * Anaerobic Culture (06/25/2022 3:11 PM EST) Anaerobic Culture No anaerobic organisms isolated [facility] Fluid 06/25/2022 3:11 PM EST 06/25/2022 5:21 PM EST Comment:Superior spinal flui d collection Narrative Resulting Agency Comment Spec In Lab Anurag Call DO MICROBIOLOGY - GENER AL ORDERABLES Performing Organization Address [facility] Co de Phone Number [facility] [address] * Body Fluid Culture, Aerobic (06/25/2022 3:11 PM EST) Body Fluid Culture No growth [facility] Gram Stain Many Neutrophils seen No microorganisms seen. [facility] Fluid 06/25/2022 3:11 PM EST 06/25/2022 5:21 PM EST Comment:Superior spinal flui d collection Narrative Resulting Agency Comment Spec In Lab Anurag Call DO MICROBIOLOGY - GENER AL ORDERABLES Performing Organization Address City/[facility]/ZIP Co de Phone Number [facility] [place] [address] * Blood culture (06/25/2022 8:55 AM EST) Blood Culture No growth at 5 days. [facility] Blood Pediatric STRUCTURE OF RIGHT HAND / Unknown 06/25/2022 8:55 AM EST 06/25/2022 9:16 AM EST Comment:#2 Narrative Resulting Agency Comment Spec In Lab Eddi Vázquez MD MICROBIOLOGY - BLOOD ORDERABLES Performing Organization Address [facility] Co de Phone Number [facility] [place] [address] * Blood culture (06/25/2022 8:55 AM EST) Blood Culture No growth at 5 days. [facility] Blood Pediatric STRUCTURE OF RIGHT UPPER LIMB / Unknown 06/25/2022 8:55 AM EST 06/25/2022 9:16 AM EST Comment:#1 upper Narrative Resulting Agency Comment Spec In Lab Eddi Vázquez MD MICROBIOLOGY - BLOOD ORDERABLES Performing Organization Address [facility] Co de Phone Number [facility] [place] [address] * Differential, Automated (06/25/2022 2:20 AM EST) Neutrophil % 60.4 % [facility] Neutrophil Absolute 4.34 1.70 - 6.10 x10(3)/[facility] Lymph % 30.3 % [facility] Lymphocytes Abs 2.2 0.9 - 3.2 x10(3)/[facility] Monocyte % 7.2 % [facility] Monocyte Abs 0.5 0.3 - 0.9 x10(3)/[facility] Eos % 1.4 % [facility] Eosinophils Abs 0.1 0.0 - 0.4 x10(3)/[facility] Basophil % 0.6 % [facility] Baso Absolute 0.0 0.0 - 0.1 x10(3)/[facility] LABORATORY Immature Gran % 0.10 % [facility] Comment: Immature granulocytes(IG's)percentage and absolute count will include metamyelocytes, myelocytes, and promyelocytes. Blood smears from CBCs yielding IG's will be scanned manually for concordance. If this scan disagrees with the automated IG or if promyelocytes are noted, a manual differential will be performed. Immature Gran Absolute 0.01 0.00 - 0.04 x10(3)/[facility] LABORATORY Blood 06/25/2022 2:20 AM EST 06/25/2022 2:26 AM EST Narrative Resulting Agency Comment Spec In Lab Eddi Vázquez MD HEMATOLOGY ORDERABLE S [facility] [place], [place] [id number] * (ABNORMAL) Hemogram (06/25/2022 2:20 AM EST) White Blood Cell 7.2 4.0 - 9.5 x10(3)/ L [facility] Red Blood Cell 4.06 4.00 - 5.21 x10(6)/mc L [facility] Hemoglobin 9.8(L) 11.7 - 15.5 g/dL [facility] Hematocrit 30.7(L) 35.7 - 45.8 % [facility] Mean Cell Volume 75.6(L) 82.6 - 94.4 fL [facility] Mean Cell Hemoglobin 24.1(L) 27.1 - 32.0 pg [facility] Mean Cell Hemoglobin Concentration 31.9 31.7 - 35.0 g/dL [facility] Platelet 437(H) 145 - 357 x10(3)/mc L [facility] RDW Standard Deviation 48.7(H) 37.0 - 46.0 fL [facility] RDW coefficient of variation 17.9(H) 11.5 - 14.1 % [facility] Mean Platelet Volume 8.9 7.6 - 12.9 fL [facility] NRBC% auto 0.0 % [facility] NRBC Absolute 0.000 0.000 - 0.000 x10(3)/mc L [facility] Blood 06/25/2022 2:20 AM EST 06/25/2022 2:26 AM EST Narrative Resulting Agency Comment Spec In Lab Eddi Vázquez MD HEMATOLOGY ORDERABLE S [facility] [place] [address] * (ABNORMAL) Basic Metabolic Panel (non-fasting) (06/25/2022 2:20 AM EST) Glucose 97 65 - 199 mg/dL [facility] Comment:Diabetes: >=200 mg/d L plus symptoms Blood Urea Nitrogen 9 8 - 18 mg/dL [facility] Creatinine 0.30(L) 0.70 - 1.20 mg/dL [facility] Sodium 140 135 - 145 mmol/L [facility] Potassium 4.1 3.5 - 5.0 mmol/L [facility] Comment: Please note: ??Patients with WBC >100,000 may have falsely elevated Potassium levels. ??For accurate Potassium quantification in these patients send serum separator tube (gold top) for subsequent determinations. ??Contact the Clinical Chemistry Laboratory if there are any questions. Chloride 103 98 - 107 mmol/L [facility] Carbon Dioxide 27 22 - 31 mmol/L [facility] Anion Gap 10 5 - 15 mmol/L [facility] Calcium 9.4 8.5 - 10.5 mg/dL [facility] Est Glomerular Filtration Rate 147 >=60 mL/min/1. 73 m?? [facility] Comment: This patient's estimated GFR was [...] In Lab Eddi Vázquez MD CHEMISTRY ORDERABLES [facility] [place] [address] * CT Lumbar Spine w Contrast (06/24/2022 [...] have questions please contact the health healthcare advisory services manager that requested your imaging first. ? Electronically signed by: Jamaal Villafuerte [facility] ([phone]), at 06/24/2022 6:56 PM Narrative 06/24/2022 6:56 [...] who have questions please contactthe health healthcare advisory services manager that requested your imaging first. Electronically signed by: Jamaal Villafuerte [facility]([phone]), at 06/24/2022 6:56 PM Annabella Crawford APRN IMG CT ORDERABLES * Differential, Automated (06/24/2022 4:23 PM EST) Neutrophil % 63.2 % [facility] Neutrophil Absolute 4.29 1.70 - 6.10 x10(3)/[facility] Lymph % 29.4 % [facility] Lymphocytes Abs 2.0 0.9 - 3.2 x10(3)/[facility] Monocyte % 4.6 % [facility] Monocyte Abs 0.3 0.3 - 0.9 x10(3)/[facility] Eos % 1.8 % [facility] Eosinophils Abs 0.1 0.0 - 0.4 x10(3)/[facility] Basophil % 0.7 % [facility] Baso Absolute 0.0 0.0 - 0.1 x10(3)/[facility] Immature Gran % 0.30 % [facility] Comment: Immature granulocytes(IG's)percentage and absolute count will include metamyelocytes, myelocytes, and promyelocytes. Blood smears from CBCs yielding IG's will be scanned manually for concordance. If this scan disagrees with the automated IG or if promyelocytes are noted, a manual differential will be performed. Immature Gran Absolute 0.02 0.00 - 0.04 x10(3)/[facility] Blood 06/24/2022 4:23 PM EST 06/24/2022 4:38 PM EST Narrative Resulting Agency Comment Spec In Lab Kvng SIMMS HEMATOLOGY ORDERABL ES [facility] [place] [address] * (ABNORMAL) Hemogram (06/24/2022 4:23 PM EST) White Blood Cell 6.8 4.0 - 9.5 x10(3)/ L [facility] Red Blood Cell 4.40 4.00 - 5.21 x10(6)/[facility] Hemoglobin 10.5(L) 11.7 - 15.5 g/dL [facility] Hematocrit 33.6(L) 35.7 - 45.8 % [facility] Mean Cell Volume 76.4(L) 82.6 - 94.4 fL [facility] Mean Cell Hemoglobin 23.9(L) 27.1 - 32.0 pg [facility] Mean Cell Hemoglobin Concentration 31.3(L) 31.7 - 35.0 g/dL [facility] Platelet 516(H) 145 - 357 x10(3)/mc L [facility] RDW Standard Deviation 48.5(H) 37.0 - 46.0 fL [facility] RDW coefficient of variation 17.8(H) 11.5 - 14.1 % [facility] Mean Platelet Volume 9.0 7.6 - 12.9 fL [facility] NRBC% auto 0.0 % [facility] NRBC Absolute 0.000 0.000 - 0.000 x10(3)/mc L [facility] Blood 06/24/2022 4:23 PM EST 06/24/2022 4:38 PM EST Narrative Resulting Agency Comment Spec In Lab Kvng SIMMS HEMATOLOGY ORDERABL ES Performing Organization Address City/[facility]/ZIP Co de Phone Number [facility] [place] [address] * (ABNORMAL) Sedimentation rate (06/24/2022 4:23 PM EST) Pathologist [facility] Sedimentation Rate Automated >119(H) 2 - 37 mm/hr [facility] Comment: Effective April 06, 2019 new capillary photometric technology has resulted in a change in reference ranges. It is recommended that each ESR result be reviewed with its own age appropriate reference range. Blood 06/24/2022 4:23 PM EST 06/24/2022 4:38 PM EST Narrative Resulting Agency Comment Spec In Lab Gaby Robert MD HEMATOLOGY ORDERABLE S [facility] [place] [address] * (ABNORMAL) CRP, acute inflammation (06/24/2022 4:23 PM EST) C-Reactive Protein 96.9(H) <=4.9 mg/L [facility] Blood 06/24/2022 4:23 PM EST 06/24/2022 4:38 PM EST Narrative Resulting Agency Comment Spec In Lab Gaby Robert MD CHEMISTRY ORDERABLES [facility] [place] [address] * (ABNORMAL) Basic Metabolic Panel (non-fasting) (06/24/2022 4:23 PM EST) Glucose 97 65 - 199 mg/dL [facility] Comment:Diabetes: >=200 mg/d L plus symptoms Blood Urea Nitrogen 9 8 - 18 mg/dL [facility] Creatinine 0.26(L) 0.70 - 1.20 mg/dL [facility] Sodium 143 135 - 145 mmol/L [facility] Potassium 3.9 3.5 - 5.0 mmol/L [facility] Comment: Please note: ??Patients with WBC >100,000 may have falsely elevated Potassium levels. ??For accurate Potassium quantification in these patients send serum separator tube (gold top) for subsequent determinations. ??Contact the Clinical Chemistry Laboratory if there are any questions. Chloride 104 98 - 107 mmol/L [facility] Carbon Dioxide 27 22 - 31 mmol/L [facility] Anion Gap 12 5 - 15 mmol/L [facility] Calcium 10.0 8.5 - 10.5 mg/dL [facility] Est Glomerular Filtration Rate 152 >=60 mL/min/1. 73 m?? [facility] Comment: This patient's estimated GFR was [...] In Lab Gaby Robert MD CHEMISTRY ORDERABLES [facility] [place] [address] documented in this encounter Visit Diagnoses Diagnosis [...] ONCE, 1 dose, On Thu07/02/22 at 0900 [facility] Bag 07/02/2022 8:48 AM EST [...] Vi Bonds RN) 0841 (Given - Provider: Jgina Neal RN) senna-docusate (Pericolace) 8.6-50 mg per [...] documented as of this encounter Care Teams Chronic Disease Manager Relationship Specialty Start Date End Date Lorna Bal APRN [address] [place] [address] PCP - General Family Medicine 05/27/18 documented as of this encounter
--- OUTSIDE RECORDS SUMMARY | 2023-12-07 15:24 | XMS_ITS | Encounter Summary ---
Author Organization [facility] [place] [address] Care Team Providers Care Billet Heater Name Role Phone Emelyn Easley MD Primary Care Provider Reason for Visit * Reason Onset Date Comments Appointment 02/05/2017 Encounter Details Date Type Department Care Team (Late st Contact Info) Description 02/05/2017 Telephone [place] [phone] Sarah Shah APRN [facility] [place] [address] Appointment Social History Tobacco Use Types Packs/Day [...] EST Office Visit [place] [address] Hollie Ambriz MD [facility] [place] [address] documented as of this encounter Visit Diagnoses Not on filedocumented in this encounter Care Teams Billet Heater Relationship Specialty Start Date End Date Emelyn Easley MD [address] [place] [address] PCP - General Family Medicine 08/26/16 05/26/18 documented as of this encounter
--- OUTSIDE RECORDS SUMMARY | 2023-12-07 15:25 | XMS_ITS | Encounter Summary ---
Author Organization [facility] Address [facility] [place] [address] Care Team Providers Care Entry Level Marketing Representative Name Role Phone Naina Lindsey MD Primary Care Provider Encounter Details Date Type Department Care Team (Latest Contact Info) Description 07/31/2015 11:19 AM EDT - 07/31/2015 11:59 PM EDT Hospital Encounter XRay at [address] [place] [address] Mesha Cabral MD [facility] ORTHOPAED[place] [address] Neuromuscular scoliosis of lumbar region; Traumatic brain [...] PM EST Office [place] [address] Hollie Ambriz MD [facility] INFECTI[place] [address] documented as of this encounter Procedures Procedure [...] Progression of remodeling and sclerosis about the koi acetabulum and proximal right femoral fragment status [...] Progression of irregularity and remodeling about the koi acetabulum. The femur remains gracile in nature. [...] Progression of irregularity and remodeling about the koi acetabulum. The femurremains gracile in nature. Absent femoral head. IMPRESSION IMPRESSION: Progression of remodeling and sclerosis about the koi acetabulum andproximal right femoral fragment status post [...] encounter documented in this encounter Care Teams Entry Level Marketing Representative Relationship Specialty Start Date End Date Naina Lindsey MD [address] [place] [address] PCP - General 03/19/10 08/25/16 documented as of this encounter
--- OUTSIDE RECORDS SUMMARY | 2023-12-07 15:25 | XMS_ITS | Encounter Summary ---
Author Organization [facility] [place] [address] Care Team Providers Care Tube Sizer And Cutter Operator Name Role Phone Naina Lindsey MD Primary Care Provider [phone] Reason for Visit * Reason Onset Date Comments Bumped Appointment 09/29/2014 Encounter Details Date Type Department Care Team (Late st Contact Info) Description 09/29/2014 Telephone [place] [phone] Mesha Cabral MD [facility] [place] [address] Bumped Appointment Social History Tobacco Use Types [...] PM EST Office Visit [place] [address] Hollie Ambriz MD [facility] [place] [address] documented as of this encounter Visit Diagnoses Not on filedocumented in this encounter Care Teams Tube Sizer And Cutter Operator Relationship Specialty Start Date End Date [place] [address] PCP - General 03/19/10 08/25/16 documented as of this encounter
--- OUTSIDE RECORDS SUMMARY | 2023-12-07 15:25 | XMS_ITS | Encounter Summary ---
Author Organization [facility] Address [facility] [place] [address] Care Team Providers Care Gas Compressor Turbine Operator Name Role Phone Emelyn Easley MD Primary Care Provider [phone] Reason for Referral * Physical Therapy (Routine) - Closed Specialty Diagnoses / Procedures Referred By Contac t Referred To Contact Diagnoses Traumatic brain injury, without LOC, sequela Acquired dysplasia of hip, unspecified laterality Spasticity Neuromuscular scoliosis of lumbar region Vanda Carter PA [facility] [place] [address] Unknown None Referral ID Status Reason Start Date Expiration Date V isits Requested Visits Authorized [id number] Closed Evaluate and Treat 11/24/2016 05/23/2017 12 12 * Diagnostic Test (Routine) - Closed Specialty Diagnoses / Procedures Referred By Contac t Referred To Contact Radiology Diagnoses Traumatic brain injury, without LOC, sequela Acquired dysplasia of hip, unspecified laterality Spasticity Neuromuscular scoliosis of lumbar region Procedures NM Whole Body Bone Scan Vanda Carter PA [facility] [place] [address] [place] [address] Referral ID Status Reason Start Date Expiration Date V isits Requested Visits Authorized [id number] Closed Specialty Service Requested 11/24/2016 11/24/2017 1 1 Reason for Visit * Consultation (Routine) - Closed Specialty Diagnoses / Procedures Referred By Contac t Referred To Contact Orthopaedics Diagnoses leg pain,chronic, right Emelyn Easley MD [address] [place] [address] [facility] [address] [place] [phone] Referral ID Status Reason Start Date Expiration Date V isits Requested Visits Authorized [id number] Closed Consult, Test & Treat [facility] 08/26/2016 08/26/2017 1 1 Encounter Details Date Type Department Care Team (Late st Contact Info) Description 11/24/2016 1:00 PM EDT Office [place] [address] Josse Mckee MD [facility] [place] [address] Traumatic brain injury, without LOC, sequela; Acquired [...] NAME: Tana Cavazos AGE: 21 y.o.. MR#: [id number] ? DATE OF VISIT: 11/24/2016 ? STAFF: [...] girdlestone procedure in July [address] Raimrez after previous bilateral proximal femoral valgus osteotomies [...] PM EST Office [place] [address] Hollie Ambriz MD [facility] [place] [address] Scheduled Referrals Name Type Priority Associated Diagnoses [...] pelvis cannot be evaluated. Josse Mckee MD [facility] [place] ORDERABLES documented in this encounter Visit [...] scoliosis documented in this encounter Care Teams Gas Compressor Turbine Operator Relationship Specialty Start Date End Date Emelyn Easley MD [address] [place] [address] PCP - General Family Medicine 08/26/16 05/26/18 documented as of this encounter
--- OUTSIDE RECORDS SUMMARY | 2023-12-07 15:25 | XMS_ITS | Encounter Summary ---
[place] [address] Care Team Providers Care Sports Marketer Name Role Phone Emelyn Easley MD Primary Care Provider [phone] Reason for Visit * Diagnostic Test (Routine) - Closed Specialty Diagnoses / Procedures Referred By Contac t Referred To Contact Radiology Diagnoses Traumatic brain injury, without LOC, sequela Acquired dysplasia of hip, unspecified laterality Spasticity Neuromuscular scoliosis of lumbar region Procedures NM Whole Body Bone Scan Vanda Carter PA [facility] [place] [address] [place] [address] Referral ID Status Reason Start Date Expiration Date V isits Requested Visits Authorized [id number] Closed Specialty Service Requested 11/24/2016 11/24/2017 1 1 Encounter Details Date Type Department Care Team (Latest Contact Info) Description 12/10/2016 2:00 PM EDT - 12/10/2016 11:59 PM EDT Hospital Encounter [place] [address] Josse Mckee MD [facility] [place] [address] Discharge Disposition: Home Social History [...] PM EST Office [place] [address] Hollie Ambriz MD [facility] [place] [address] documented as of this encounter Procedures Procedure [...] mg documented in this encounter Care Teams Sports Marketer Relationship Specialty Start Date End Date Emelyn Easley MD [address] [place] [address] PCP - General Family Medicine 08/26/16 05/26/18 documented as of this encounter
--- OUTSIDE RECORDS SUMMARY | 2023-12-07 15:25 | XMS_ITS | Encounter Summary ---
Author Organization [facility] [place] [address] Care Team Providers Care Art Coordinator Name Role Phone Emelyn Easley MD Primary Care Provider Encounter Details Date Type Department Care Team (Late st Contact Info) Description 11/17/2016 Orders [place] [address] Josse Mckee MD [facility] [place] [address] Neuromuscular scoliosis of lumbar region; Acquired dysplasia [...] PM EST Office [place] [address] Hollie Ambriz MD [facility] [place] [address] documented as of this encounter Results * [...] laterality documented in this encounter Care Teams Art Coordinator Relationship Specialty Start Date End Date Emelyn Easley MD [address] [place] [address] PCP - General Family Medicine 08/26/16 05/26/18 documented as of this encounter
--- OUTSIDE RECORDS SUMMARY | 2023-12-07 15:25 | XMS_ITS | Encounter Summary ---
Author Organization [facility] [place] [address] Care Team Providers Care License Issuer Name Role Phone Naina Lindsey MD Primary Care Provider [phone] Reason for Referral * Consultation (Routine) - Closed Specialty Diagnoses / Procedures Referred By Contac t Referred To Contact Neurology Diagnoses Traumatic brain injury, without loss of consciousness, sequela Spasticity Contracture of elbow, left Mesha Cabral MD [facility] [place] [address] Myah Abdi, [facility] [place] [address] Referral ID Status Reason Start Date Expiration Date V isits Requested Visits Authorized [id number] Closed Consult, Test & Treat 07/31/2015 07/30/2016 1 1 * Consultation (Routine) - Closed Specialty Diagnoses / Procedures Referred By Contac t Referred To Contact Diagnoses Traumatic brain injury, without loss of consciousness, sequela Spasticity Contracture of elbow, left Mesha Cabral MD [facility] [place] [address] Unknown None Referral ID Status Reason Start Date Expiration Date V isits Requested Visits Authorized [id number] Closed Consult, Test & Treat 07/31/2015 01/27/2016 1 1 Reason for Visit * Reason Comments Right Leg Pain Delayed Development Childhood Encounter Details Date Type Department Care Team (Late st Contact Info) Description 07/31/2015 11:00 AM EDT Office [place] [address] Mesha Cabral MD [facility] [place] [address] Neuromuscular scoliosis of lumbar region; Traumatic brain [...] a followup for this established patient of [place]. She is 20 years old and has an underlying diagnosis of spastic quadriplegic cerebral palsy. She is accompanied by her mother and solid waste truck driver. Recently it has been noted that she [...] advised Mother that I will be leaving [facility] at the end of September of [...] needs. Provider: Mesha Cabral MD [place] [address] documented in this encounter Plan of Treatment Upcoming Encounters Date Type Department Care Team (Late st Contact Info) Description 06/02/2024 12:30 PM EST Office [place] [address] Hollie Ambriz MD [facility] [place] [address] Scheduled Referrals Name Type Priority Associated Diagnoses [...] Progression of remodeling and sclerosis about the holy cross acetabulum and proximal right femoral fragment status [...] Progression of irregularity and remodeling about the holy cross acetabulum. The femur remains gracile in nature. [...] Progression of irregularity and remodeling about the holy cross acetabulum. The femurremains gracile in nature. Absent femoral head. IMPRESSION IMPRESSION: Progression of remodeling and sclerosis about the holy cross acetabulum andproximal right femoral fragment status post [...] encounter documented in this encounter Care Teams License Issuer Relationship Specialty Start Date End Date Naina Lindsey MD [address] [place] [address] PCP - General 03/19/10 08/25/16 documented as of this encounter
--- OUTSIDE RECORDS SUMMARY | 2023-12-07 15:25 | XMS_ITS | Encounter Summary ---
[place] [address] Care Team Providers Care Network Systems Operator Name Role Phone Naina Lindsey MD Primary Care Provider [phone] Reason for Visit * Reason Onset Date Comments Referral 09/13/2014 Encounter Details Date Type Department Care Team (Late st Contact Info) Description 09/13/2014 Telephone [place] [phone] Emelyn Perez Referral Social History Tobacco Use [...] from referral: [facility] On a in [facility]. documented in this encounter Plan of Treatment Upcoming Encounters Date Type Department Care Team (Late st Contact Info) Description 06/02/2024 12:30 PM EST Office Visit Infectious [place] [address] Hollie Ambriz MD [facility] [place] [address] documented as of this encounter Visit Diagnoses Not on filedocumented in this encounter Care Teams Network Systems Operator Relationship Specialty Start Date End Date Naina Lindsey MD [address] [place] [address] [place] [address] PCP - General 03/19/10 08/25/16 documented as of this encounter
--- OUTSIDE RECORDS SUMMARY | 2023-12-07 15:25 | XMS_ITS | Encounter Summary ---
[place] [address] Care Team Providers Care Plant Engineering Supervisor Name Role Phone Emelyn Easley MD Primary Care Provider [phone] Reason for Visit * Auth/Cert Specialty Diagnoses / Procedures Referred By Karlo duarte Referred To Contact Diagnoses TBI, W/O LOC, SEQUEIA/ACQUIRED DYSPLASIA OF HIP Procedures PRO ANESTH, CAT/MRI SCAN, RADIATN THERAPY BONE SCAN Referral ID Status Reason Start Date Expiration Date Visits Re quested Visits Authorized [id number] 1 1 Encounter Details Date Type Department Care Team (Late st Contact Info) Description 12/30/2016 3:23 [place] [address] Gaby Cantu MD [facility] [place] [address] Sidney Lawson MD [facility] [place] [address] Anesthesia Record Procedure Summary Procedure Name Responsible [...] Lawson MD - 12/30/2016 4:27 PM EDT [facility] Department of Anesthesiology Post-procedure Note Patient: Tana Cavazos Procedure Summary Date Anesthesia Start Anesthesia Stop Room / Location 12/30/16 1523 1608 [facility] RADIOLOG[facility] / [facility] Procedure Diagnosis Surgeon Responsible Provider BONE SCAN (N/A ) (TBI, W/O LOC, SEQUEIA/ACQUIRED DYSPLASIA OF HIP) RESOURCE, ANESTHESIA-Gaby Hallman MD All Anesthesia Providers: Anesthesiologist: Gaby Cantu MD Lacing Operator: Sidney Lawson MD Last (1hr) Vitals: BP (!) 80/50 (12/30/16 1608) Temp 36.2 ??C (97.2 ??F) (12/30/16 1608) Pulse 93 (12/30/16 1608) Resp 16 (12/30/16 1608) SpO2 97 % (12/30/16 1608) Patient Location: PACU/[facility] Level of Consciousness: Awake and Alert Pain [...] BOTH LEGS performed by BARRERA OLIVER at [facility] OR ? ? PRO I&D, POST SPINE, LUMB/SACR/LUMBOSAC N/A 05/20/2014 @I & D, OPEN, DEEP ABSCESS, LUMBAR, SACRAL, LUMBOSACRAL performed by Freddy Isbell MD at [facility] OR ? ? PRO I&D, POST SPINE, LUMB/SACR/LUMBOSAC N/A 05/26/2014 @I & D, OPEN, DEEP ABSCESS, LUMBAR, SACRAL, LUMBOSACRAL performed by Freddy Isbell MD at [facility] OR ??? PRO OSTEOTOMY FEMUR SHAFT/SUPRACONDY 08/15/2010 ??OSTEOTOMY, FEMUR SHAFT OR SUPRACONDYLAR W/O FIXATION performed by BARRERA OLIVER at [facility] OR ??? PRO RECONSTRUC HIP SOCKET, RESEC FEM HEAD 08/15/2010 ??ACETABULOPLASTY (GIRDLESTONE), RESECTION FEMORAL HEAD, BILATERAL performed by BARRERA OLIVER [facility] OR ??? PRO REMOVAL DEEP IMPLANT 08/15/2010 REMOVAL IMPLANT, DEEP, BRUNO performed by BARRERA OLIVER at [facility] OR ??? PRO REMOVE INFUSN DEVICE/PUMP N/A 05/11/2014 REMOVAL OF SPINE INFUSION PUMP performed by Jamaal Samuel MD at [facility] OR ??? PRO REMOVE SPINAL CANAL CATHETER N/A 05/11/2014 REMOVAL OF INTRATHECAL OR EPIDURAL CATHETER performed by Jamaal Samuel MD at [facility] OR ??? PRO REPR, DURAL/CSF LEAK, NOT REQ LAMINECTOMY N/A 05/20/2014 @REPAIR DURAL\CSF LEAK,NOT REQUIRING LAMINECTOMY performed by Freddy Isbell MD at [facility] OR Social History Substance Use Topics ??? Smoking status: Never Smoker ??? Smokeless tobacco: Never Used Comment: NO SMOKERS IN THE HOME ??? Alcohol use No History Drug Use No Allergies Allergen Reactions ??? Fluoxetine Other (See Comments) HIVES, HEART RACES ??? Tegaderm [Transparent Dressings] Itching and Dermatitis Please use [id number] Medications: MAR and/or home medications have been [...] PM EST Office Visit [place] [address] Hollie Ambriz MD [facility] [place] [address] documented as of this encounter Visit Diagnoses [...] mL/hr documented in this encounter Care Teams Plant Engineering Supervisor Relationship Specialty Start Date End Date Emelyn Easley MD [address] [place] [address] PCP - General Family Medicine 08/26/16 05/26/18 documented as of this encounter
--- OUTSIDE RECORDS SUMMARY | 2023-12-07 15:25 | XMS_ITS | Encounter Summary ---
Author Organization [facility] [place] [address] Care Team Providers Care Instructor Dramatic Arts Name Role Phone Naina Lindsey MD Primary Care Provider Encounter Details Date Type Department Care Team (Late st Contact Info) Description 12/29/2014 Orders [place] [address] Mesha Cabral MD [facility] [place] [address] Acquired dysplasia of hip, unspecified laterality; Presence [...] PM EST Office [place] [address] Hollie Ambriz MD [facility] [place] [address] documented as of this encounter Visit Diagnoses Diagnosis Acquired dysplasia of hip, unspecified laterality Presence of intrathecal baclofen pump Scoliosis Scoliosis (and kyphoscoliosis), idiopathic Spasticity Abnormal involuntary movements Traumatic brain injury, sequela documented in this encounter Care Teams Instructor Dramatic Arts Relationship Specialty Start Date End Date Naina Lindsey MD [address] [place] [address] [place] [address] PCP - General 03/19/10 08/25/16 documented as of this encounter
--- OUTSIDE RECORDS SUMMARY | 2023-12-07 15:25 | XMS_ITS | Encounter Summary ---
Author Organization [facility] [place] [address] Care Team Providers Care Developmental Specialist Name Role Phone Naina Lindsey MD Primary Care Provider [phone] Encounter Details Date Type Department Care Team (Late st Contact Info) Description 11/09/2014 Orders [place] [address] Mesha Cabral MD [facility] [place] [address] Scoliosis Social History Tobacco Use Types Packs/Day [...] PM EST Office Visit [place] [address] Hollie Ambriz MD [facility] [place] [address] documented as of this encounter Results * [...] idiopathic documented in this encounter Care Teams Developmental Specialist Relationship Specialty Start Date End Date Naina Lindsey MD [address] [place] [address] PCP - General 03/19/10 08/25/16 documented as of this encounter
--- OUTSIDE RECORDS SUMMARY | 2023-12-07 15:25 | XMS_ITS | Encounter Summary ---
Author Organization [facility] Address [facility] [place] [address] Care Team Providers Care Trap Operator Name Role Phone Naina Lindsey MD Primary Care Provider [phone] Reason for Visit * Reason Onset Date Comments Appointment 08/02/2015 Encounter Details Date Type Department Care Team (Late st Contact Info) Description 08/02/2015 [place]phone [place] [address] Mesha Cabral MD [facility] [place] [address] Appointment Social History Tobacco Use Types Packs/Day [...] PM EST Office [place] [address] Hollie Ambriz MD [facility] [place] [address] documented as of this encounter Visit Diagnoses Not on filedocumented in this encounter Care Teams Trap Operator Relationship Specialty Start Date End Date Naina Lindsey MD [address] [place] [address] PCP - General 03/19/10 08/25/16 documented as of this encounter
--- OUTSIDE RECORDS SUMMARY | 2023-12-07 15:25 | XMS_ITS | Encounter Summary ---
Author Organization [facility] Address [facility] [place] [address] Care Team Providers Care Ordnance Mechanic Name Role Phone Naina Lindsey MD Primary Care Provider [phone] Encounter Details Date Type Department Care Team (Late st Contact Info) Description 11/09/2014 9:31 AM EDT - 11/09/2014 11:00 AM EDT Hospital Encounter XRay at [address] [place] [address] Scoliosis Social History Tobacco Use Types Packs/Day [...] PM EST Office [place] [address] Holile Ambriz MD [facility] DR INF[place] [address] documented as of this encounter Procedures Procedure [...] idiopathic documented in this encounter Care Teams Ordnance Mechanic Relationship Specialty Start Date End Date Naina Lindsey MD [address] [place] [address] PCP - General 03/19/10 08/25/16 documented as of this encounter
--- OUTSIDE RECORDS SUMMARY | 2023-12-07 15:25 | XMS_ITS | Encounter Summary ---
Author Organization [facility] Address [facility] [place] [address] Care Team Providers Care Brick Chimney Supervisor Name Role Phone Emelyn Easley MD Primary Care Provider [phone] Encounter Details Date Type Department Care Team (Latest Contact Info) Description 11/24/2016 12:04 PM EDT - 11/24/2016 11:59 PM EDT Hospital Encounter XRay at [address] [place] [address] Josse Mckee MD [facility] [place] [address] Acquired dysplasia of hip, unspecified laterality Discharge [...] PM EST Office Visit [place] [address] Hollie Ambriz MD [facility] [place] [address] documented as of this encounter Procedures Procedure [...] laterality documented in this encounter Care Teams Brick Chimney Supervisor Relationship Specialty Start Date End Date Emelyn Easley MD [address] [place] [address] PCP - General Family Medicine 08/26/16 05/26/18 documented as of this encounter
--- OUTSIDE RECORDS SUMMARY | 2023-12-07 15:25 | XMS_ITS | Encounter Summary ---
[place] [address] Care Team Providers Care Toll Ticket Clerk Name Role Phone Naina Lindsey MD Primary Care Provider [phone] Encounter Details Date Type Department Care Team (Late st Contact Info) Description 01/04/2015 Telephone [place] [address] Camille Griffin RN Social History Tobacco Use [...] equipment services. They do not have a [place] provider licence so they will not be able to help with the wheelchair. Spoke with mom and she does not want to go through [employer] again. Will discuss with the team to see if there are other options in [place] for the wheelchair. documented in this encounter Plan of Treatment Upcoming Encounters Date Type Department Care Team (Late st Contact Info) Description 06/02/2024 12:30 PM EST Office Visit [place] [address] Hollie Ambriz MD [facility] [address] [place] [address] documented as of this encounter Visit Diagnoses Not on filedocumented in this encounter Care Teams Toll Ticket Clerk Relationship Specialty Start Date End Date Naina Lindsey MD [address] [place] [address] PCP - General 03/19/10 08/25/16 documented as of this encounter
--- OUTSIDE RECORDS SUMMARY | 2023-12-07 15:25 | XMS_ITS | Encounter Summary ---
Author Organization [facility] Address [facility] [place] [address] Care Team Providers Care Operations Plant Attendant Name Role Phone Naina Lindsey MD Primary Care Provider [phone] Reason for Visit * Reason Onset Date Comments Appointment 10/12/2014 Encounter Details Date Type Department Care Team (Late st Contact Info) Description 10/12/2014 Telephone [place] [address] Mesha Cabral MD [facility] [address] [place] [address] Appointment Social History Tobacco Use Types Packs/Day [...] PM EST Office [place] [address] Hollie Ambriz MD [facility] [place] [address] documented as of this encounter Visit Diagnoses Not on filedocumented in this encounter Care Teams Operations Plant Attendant Relationship Specialty Start Date End Date Naina Lindsey MD [address] [place] [address] [place] [address] PCP - General 03/19/10 08/25/16 documented as of this encounter
--- OUTSIDE RECORDS SUMMARY | 2023-12-07 15:25 | XMS_ITS | Encounter Summary ---
Author Organization [facility] Address [facility] [place] [address] Care Team Providers Care Vice President Payer Name Role Phone Naina Lindsey MD Primary Care Provider [phone] Reason for Referral * Consultation (Routine) - Specialty Diagnoses / Procedures Referred By Contmonica duarte Referred To Contact Orthotics Diagnoses Neuromuscular scoliosis of lumbar region Joe Porter MD [facility] [place] [address] Referral ID Status Reason Start Date Expiration Date V isits Requested Visits Authorized [id number] Consult, Test & Treat 06/19/2016 12/16/2016 1 1 Encounter Details Date Type Department Care Team (Late st Contact Info) Description 06/19/2016 Orders [place] [address] Joe Porter MD [facility] [place] [address] Neuromuscular scoliosis of lumbar region Social History [...] soft TLSO brace faxed to [employer] in [facility]. documented in this encounter Plan of Treatment Upcoming Encounters Date Type Department Care Team (Late st Contact Info) Description 06/02/2024 12:30 PM EST Office Visit [place] [address] Hollie Ambriz MD [facility] [place] [address] Scheduled Referrals Name Type Priority Associated Diagnoses Orde r Schedule Referral to Othotist Outpatient Referral Routine Neuromuscular scoliosis of lumbar region Ordered: 06/19/2016 documented as of this encounter Visit Diagnoses Diagnosis Neuromuscular scoliosis of lumbar region Other kyphoscoliosis and scoliosis documented in this encounter Care Teams Vice President Payer Relationship Specialty Start Date End Date Naina Lindsey MD [address] [place] [address] [place] [address] PCP - General 03/19/10 08/25/16 documented as of this encounter
--- OUTSIDE RECORDS SUMMARY | 2023-12-07 15:25 | XMS_ITS | Encounter Summary ---
Author Organization [facility] Address [facility] [place] [address] Care Team Providers Care Nozzleman Name Role Phone Naina Lindsey MD Primary Care Provider [phone] Reason for Referral * Consultation (Routine) - Closed Specialty Diagnoses / Procedures Referred By Contac t Referred To Contact Orthotics Diagnoses Traumatic brain injury, sequela Spasticity Scoliosis Mesha Cabral MD [facility] [place] [address] Referral ID Status Reason Start Date Expiration Date V isits Requested Visits Authorized [id number] Closed Consult, Test & Treat 11/09/2014 05/08/2015 3 3 Reason for Visit * Reason Comments Follow-up [facility] Encounter Details Date Type Department Care Team (Late st Contact Info) Description 11/09/2014 10:00 AM EDT Office [place] [address] Mesha Cabral MD [facility] [place] [address] Acquired dysplasia of hip, unspecified laterality; Traumatic [...] when her orthopedic care was received at [facility], I do not have those notes [...] alignment where she had previously used a [place] type TLSO scoliosis brace, it does not [...] skin currently. Upper extremity exam reveals bilateral [id number] contractures of the shoulders, elbows, and wrists, [...] would have to be a referral to [facility] as I am no longer [...] Office [place] [address] Hollie Ambriz MD [facility] [place] [address] Scheduled Referrals Name Type Priority Associated Diagnoses [...] limb documented in this encounter Care Teams Nozzleman Relationship Specialty Start Date End Date Naina Lindsey MD [address] [place] [address] PCP - General 03/19/10 08/25/16 documented as of this encounter
--- OUTSIDE RECORDS SUMMARY | 2023-12-07 15:25 | XMS_ITS | Encounter Summary ---
Author Organization [facility] Benjamin [facility] [place] [address] Care Team Providers Care Custom Seamstress Name Role Phone Naina Lindsey MD Primary Care Provider [phone] Encounter Details Date Type Department Care Team (Late st Contact Info) Description 06/19/2014 External Results [place] [address] Donnell Dotson MD [facility] [place], [place] [id number] Social History Tobacco Use Types Packs/Day Years [...] PM EST Office [place] [address] Hollie Ambriz MD [facility] DR [place] [address] documented as of this encounter Procedures Procedure Name Priority Date/Time Associated Diagnosis Comments IMPLANTABLE DEVICES SCAN Routine 05/03/2014 3:51 PM EST documented in this encounter Visit Diagnoses Not on filedocumented in this encounter Care Teams Custom Seamstress Relationship Specialty Start Date End Date Naina Lindsey MD [address] [place] [place] [address] PCP - General 03/19/10 08/25/16 documented as of this encounter
--- OUTSIDE RECORDS SUMMARY | 2023-12-07 15:25 | XMS_ITS | Encounter Summary ---
Author Organization [facility] [place] [address] Care Team Providers Care Degreasing Solution Reclaimer Name Role Phone Emelyn Easley MD Primary Care Provider [phone] Reason for Visit * Auth/Cert Specialty Diagnoses / Procedures Referred By Contac t Referred To Contact Diagnoses TBI, W/O LOC, SEQUEIA/ACQUIRED DYSPLASIA OF HIP Procedures PRO ANESTH, CAT/MRI SCAN, RADIATN THERAPY BONE SCAN Referral ID Status Reason Start Date Expiration Date Visits Re quested Visits Authorized [id number] 1 1 Encounter Details Date Type Department Care Team (Latest Contact Info) Description 12/30/2016 10:57 AM EDT - 12/30/2016 4:52 PM EDT Hospital Encounter [facility] Day Program at [facility] [place] [address] Janna Strickland [place] [address] Discharge Disposition: Home Social History Tobacco Use [...] 11:40; without success they called for another cotton bag clipper. I paged at 12:17; person answering says [...] PM EST Office Visit [place] [address] Hollie Ambriz MD [facility] [place] [address] documented as of this encounter Procedures Procedure Name Priority Date/Time Associated Diagnosis Comments BONE SCAN 12/30/2016 11:00 PM EDT TBI, W/O LOC, SEQUEIA/ACQUIRED DYSPLASIA OF HIP documented in this encounter Visit Diagnoses Not on filedocumented in this encounter Care Teams Degreasing Solution Reclaimer Relationship Specialty Start Date End Date Emelyn Easley MD [address] [place] [address] PCP - General Family Medicine 08/26/16 05/26/18 documented as of this encounter
--- OUTSIDE RECORDS SUMMARY | 2023-12-07 15:25 | XMS_ITS | Encounter Summary ---
Author Organization [facility] Address [facility] [place] [address] Care Team Providers Care Director Sales Name Role Phone Emelyn Easley MD Primary Care Provider [phone] Encounter Details Date Type Department Care Team (Latest Contact Info) Description 11/24/2016 12:03 PM EDT Hospital Encounter XRay at [address] [place] [address] Josse Mckee MD [facility] [place] [address] Neuromuscular scoliosis of lumbar region Discharge Disposition: [...] PM EST Office Visit Infectious Disease at [facility] [place] [address] Hollie Ambriz MD [facility] [place] [address] documented as of this encounter Procedures Procedure [...] scoliosis documented in this encounter Care Teams Director Sales Relationship Specialty Start Date End Date Emelyn Easley MD [address] [place] [address] PCP - General Family Medicine 08/26/16 05/26/18 documented as of this encounter
--- OUTSIDE RECORDS SUMMARY | 2023-12-07 15:25 | XMS_ITS | Encounter Summary ---
[place] [address] Care Team Providers Care Market Development Specialist Name Role Phone Emelyn Easley MD Primary Care Provider [phone] Reason for Visit * Reason Onset Date Comments Other 12/19/2016 Encounter Details Date Type Department Care Team (Late st Contact Info) Description 12/19/2016 Telephone [place] [address] Josse Mckee MD [facility] [place] [address] Other Social History Tobacco Use Types Packs/Day [...] PM EST Office [place] [address] Hollie Ambriz MD [facility] [place] [address] documented as of this encounter Visit Diagnoses Not on filedocumented in this encounter Care Teams Market Development Specialist Relationship Specialty Start Date End Date Emelyn Easley MD [address] [place] [address] PCP - General Family Medicine 08/26/16 05/26/18 documented as of this encounter
--- OUTSIDE RECORDS SUMMARY | 2023-12-07 15:25 | XMS_ITS | Encounter Summary ---
Author Organization [facility] [place] [address] Care Team Providers Care Mammal Keeper Name Role Phone Emelyn Easley MD Primary Care Provider [phone] Reason for Referral * Diagnostic Test (Routine) - Closed Specialty Diagnoses / Procedures Referred By Contac t Referred To Contact Radiology Diagnoses Traumatic brain injury, without LOC, sequela Acquired dysplasia of hip, unspecified laterality Procedures NM Whole Body Bone Scan Vanda Carter PA [facility] [place] [address] [place] [address] Referral ID Status Reason Start Date Expiration Date V isits Requested Visits Authorized [id number] Closed Specialty Service Requested 12/16/2016 12/16/2017 2 2 Encounter Details Date Type Department Care Team (Late st Contact Info) Description 12/16/2016 [place] [address] Vanda Carter [place] [facility] [place] [address] Traumatic brain injury, without LOC, sequela; Acquired [...] PM EST Office [place] [address] Hollie Ambriz MD [facility] [place] [address] documented as of this encounter Results * [...] at 12/30/2016 5:18 PM Josse Mckee MD [facility] [place] ORDER[place]LES documented in this encounter Visit Diagnoses Diagnosis Traumatic brain injury, without LOC, sequela Acquired dysplasia of hip, unspecified laterality Traumatic brain injury, without LOC, sequela Acquired dysplasia of hip, unspecified laterality documented in this encounter Care Teams Mammal Keeper Relationship Specialty Start Date End Date Emelyn Easley MD [address] [place] [address] PCP - General Family Medicine 08/26/16 05/26/18 documented as of this encounter
--- OUTSIDE RECORDS SUMMARY | 2023-12-07 15:25 | XMS_ITS | Encounter Summary ---
Author Organization [facility] Address [facility] [place] [address] Care Team Providers Care Medical Records Analyst Name Role Phone Naina Lindsey MD Primary Care Provider [phone] Reason for Visit * Reason Comments Scoliosis Encounter Details Date Type Department Care Team (Late st Contact Info) Description 12/29/2014 9:00 AM EDT Office Visit [place] [phone] Ty Vogel MD [facility] [place] [address] Scoliosis Discharge Disposition: Home Social History Tobacco [...] past history with care received both at [facility] and in [place]. PAST MEDICAL HISTORY: For full history, please [...] PM EST Office Visit [place] [address] Hollie Ambriz MD [facility] [place] [address] documented as of this encounter Visit Diagnoses Diagnosis Scoliosis Scoliosis (and kyphoscoliosis), idiopathic documented in this encounter Care Teams Medical Records Analyst Relationship Specialty Start Date End Date Naina Lindsey MD [address] [place] [address] [place] [address] PCP - General 03/19/10 08/25/16 documented as of this encounter
--- OUTSIDE RECORDS SUMMARY | 2023-12-07 15:25 | XMS_ITS | Encounter Summary ---
Author Organization [facility] [place] [address] Care Team Providers Care Wheel Lacer And Truer Name Role Phone Naina Lindsey MD Primary Care Provider [phone] Reason for Visit * Reason Comments Follow-up HCK / REMOVE DEE Hayes Encounter Details Date Type Department Care Team (Latest Contact Info) Description 06/08/2014 4:30 PM EST Office Visit [place] [address] Alek Sinha, TICKET SCHEDULER [facility] [place] [address] Spasticity; Postoperative wound infection, subsequent encounter Discharge [...] this encounter Progress Notes * Alek Sinha, TICKET SCHEDULER - 06/23/2014 3:02 PM EST Florin Cavazos was seen today in the pediatric neurosurgery clinic for a post-op follow up visit. Tana is a 18 year old girl with a history of increased tone which was managed with intrathecal baclofen. She underwent placement of an intrathecal baclofen pump in 2007 at the [facility]. Mother feels that the pump has [...] EST Office Visit [place] [address] Hollie Ambriz MD [facility] [place] [address] documented as of this encounter Visit Diagnoses Diagnosis Spasticity Abnormal involuntary movements Postoperative wound infection, subsequent encounter documented in this encounter Care Teams Wheel Lacer And Truer Relationship Specialty Start Date End Date Naina Lindsey MD [address] [place] [address] PCP - General 03/19/10 08/25/16 documented as of this encounter
--- OUTSIDE RECORDS SUMMARY | 2023-12-07 15:25 | XMS_ITS | Encounter Summary ---
Author Organization [facility] [place] [address] Care Team Providers Care Business Computers Teacher Name Role Phone Naina Lindsey MD Primary Care Provider [phone] Reason for Referral * Consultation (Routine) - Specialty Diagnoses / Procedures Referred By Contac t Referred To Contact Physical Medicine and Rehab Diagnoses Acquired dysplasia of hip, unspecified laterality Traumatic brain injury, without LOC, sequela Ty Woods MD [facility] [place] [address] Alek Loaiza MD [address] [place] [address] [address] [place] [address] Referral ID Status Reason Start Date Expiration Date V isits Requested Visits Authorized [id number] Consult, Test & Treat 07/29/2016 01/25/2017 1 1 Encounter Details Date Type Department Care Team (Late st Contact Info) Description 07/29/2016 Orders [place] [address] Ty Woods MD [facility] [place] [address] Acquired dysplasia of hip, unspecified laterality; Traumatic [...] PM EST Office Visit [place] [address] Hollie Ambriz MD [facility] [place] [address] Scheduled Referrals Name Type Priority Associated Diagnoses Orde r Schedule Referral to Orthopaedics Outpatient Referral Routine Acquired dysplasia of hip, unspecified laterality Traumatic Brain Injury, Without Loc, Sequela Ordered: 07/29/2016 documented as of this encounter Visit Diagnoses Diagnosis Acquired dysplasia of hip, unspecified laterality Traumatic brain injury, without LOC, sequela documented in this encounter Care Teams Business Computers Teacher Relationship Specialty Start Date End Date Naina Lindsey MD [address] [place] [address] PCP - General 03/19/10 08/25/16 documented as of this encounter
--- OUTSIDE RECORDS SUMMARY | 2023-12-07 15:25 | XMS_ITS | Encounter Summary ---
[place] [address] Care Team Providers Care Vocational Auto Body Instructor Name Role Phone Emelyn Easley MD Primary Care Provider [phone] Reason for Visit * Reason Onset Date Comments Appointment 12/10/2016 Encounter Details Date Type Department Care Team (Late st Contact Info) Description 12/10/2016 [place] [address] Josse Mckee MD [address] [place] [address] Appointment Social History Tobacco Use Types Packs/Day [...] PM EST Office [place] [address] Hollie Ambriz MD [facility] INFECTI[place] [address] documented as of this encounter Visit Diagnoses Diagnosis Acquired dysplasia of hip, unspecified laterality Neuromuscular scoliosis of lumbar region Other kyphoscoliosis and scoliosis Traumatic brain injury, without LOC, sequela documented in this encounter Care Teams Vocational Auto Body Instructor Relationship Specialty Start Date End Date Emelyn Easley MD [address] [place] [address] PCP - General Family Medicine 08/26/16 05/26/18 documented as of this encounter
--- OUTSIDE RECORDS SUMMARY | 2023-12-07 15:25 | XMS_ITS | Encounter Summary ---
Author Organization [facility] Address [facility] [place] [address] Care Team Providers Care Associate Dean Of Students Name Role Phone Naina Lindsey MD Primary Care Provider [phone] Encounter Details Date Type Department Care Team (Latest Contact Info) Description 11/09/2014 11:01 AM EDT - 11/09/2014 11:59 PM EDT Hospital Encounter XRay at [address] [place] [address] Acquired dysplasia of hip, unspecified laterality; Traumatic [...] [place] [address] Hollie Ambriz MD [facility] [address] [place] [address] documented as of this encounter Procedures Procedure [...] limb documented in this encounter Care Teams Associate Dean Of Students Relationship Specialty Start Date End Date Naina Lindsey MD [address] [place] [address] PCP - General 03/19/10 08/25/16 documented as of this encounter
--- OUTSIDE RECORDS SUMMARY | 2023-12-07 15:25 | XMS_ITS | Encounter Summary ---
Author Organization [facility] Address [facility] [place] [address] Care Team Providers Care Shoe Dyer Name Role Phone Naina Lindsey MD Primary Care Provider [phone] Encounter Details Date Type Department Care Team (Latest Contact Info) Description 07/31/2015 11:18 AM EDT Hospital Encounter XRay at [address] [place] [address] Mesha Cabral MD [facility] [place] [address] Neuromuscular scoliosis of lumbar region; Traumatic brain [...] PM EST Office [place] [address] Hollie Ambriz MD [facility] [place] [address] documented as of this encounter Procedures Procedure [...] sequela documented in this encounter Care Teams Shoe Dyer Relationship Specialty Start Date End Date Naina Lindsey MD [address] [place] [address] PCP - General 03/19/10 08/25/16 documented as of this encounter
--- OUTSIDE RECORDS SUMMARY | 2023-12-07 15:25 | XMS_ITS | Encounter Summary ---
Author Organization [facility] [place] [address] Care Team Providers Care Protective Clothing Issuer Name Role Phone Naina Lindsey MD Primary Care Provider [phone] Encounter Details Date Type Department Care Team (Late st Contact Info) Description 11/09/2014 Orders Only [place] [address] Mesha Cabral MD [facility] [place] [address] Scoliosis Social History Tobacco Use Types Packs/Day [...] PM EST Office Visit [place] [address] Hollie Ambriz MD [facility] [place] [address] documented as of this encounter Visit Diagnoses Diagnosis Scoliosis Scoliosis (and kyphoscoliosis), idiopathic documented in this encounter Care Teams Protective Clothing Issuer Relationship Specialty Start Date End Date Naina Lindsey MD [address] [place] [address] [place] [address] PCP - General 03/19/10 08/25/16 documented as of this encounter
--- OUTSIDE RECORDS SUMMARY | 2023-12-07 15:25 | XMS_ITS | Encounter Summary ---
Author Organization [facility] Address [facility] [place] [address] Care Team Providers Care Supervisor [employer] Name Role Phone Naina Lindsey MD Primary Care Provider [phone] Encounter Details Date Type Department Care Team (Latest Contact Info) Description 11/09/2014 11:01 AM EDT - 11/09/2014 11:59 PM EDT Hospital Encounter XRay at [address] [place] [address] Acquired dysplasia of hip, unspecified laterality; Traumatic [...] PM EST Office [place] [address] Hollie Ambriz MD [facility] [place] [address] documented as of this encounter Procedures Procedure [...] limb documented in this encounter Care Teams Supervisor [employer] Relationship Specialty Start Date End Date Naina Lindsey MD [address] [place] [address] PCP - General 03/19/10 08/25/16 documented as of this encounter
--- OUTSIDE RECORDS SUMMARY | 2023-12-07 15:25 | XMS_ITS | Encounter Summary ---
[place] [address] Care Team Providers Care Advertising Account Representative Name Role Phone Emelyn Easley MD Primary Care Provider [phone] Reason for Referral * Diagnostic Test (Routine) - Closed Specialty Diagnoses / Procedures Referred By Contac t Referred To Contact Radiology Diagnoses Traumatic brain injury, without LOC, sequela Acquired dysplasia of hip, unspecified laterality Spasticity Neuromuscular scoliosis of lumbar region Procedures NM Whole Body Bone Scan Vanda Carter PA [facility] [place] [address] [place] [address] Referral ID Status Reason Start Date Expiration Date V isits Requested Visits Authorized [id number] Closed Specialty Service Requested 11/24/2016 11/24/2017 1 1 Reason for Visit * Diagnostic Test (Routine) - Closed Specialty Diagnoses / Procedures Referred By Contac t Referred To Contact Radiology Diagnoses Traumatic brain injury, without LOC, sequela Acquired dysplasia of hip, unspecified laterality Spasticity Neuromuscular scoliosis of lumbar region Procedures NM Whole Body Bone Scan Vanda Carter [place] [facility] [place] [address] [facility] [place] [address] Referral ID Status Reason Start Date Expiration Date V isits Requested Visits Authorized [id number] Closed Specialty Service Requested 11/24/2016 11/24/2017 1 1 Encounter Details Date Type Department Care Team (Latest Contact Info) Description 12/10/2016 10:57 AM EDT - 12/10/2016 1:59 PM EDT Hospital Encounter [place] [address] Josse Mckee MD [facility] [place] [address] Traumatic brain injury, without LOC, [...] PM EST Office [place] [address] Hollie Ambriz MD [facility] [place] [address] documented as of this encounter Procedures Procedure [...] mCi documented in this encounter Care Teams Advertising Account Representative Relationship Specialty Start Date End Date Emelyn Easley MD [address] [place] [address] PCP - General Family Medicine 08/26/16 05/26/18 documented as of this encounter
--- OUTSIDE RECORDS SUMMARY | 2023-12-07 15:26 | XMS_ITS | Encounter Summary ---
[place] [address] Care Team Providers Care Foam Rubber Fabricator Name Role Phone Naina Lindsey MD Primary Care Provider [phone] Encounter Details Date Type Department Care Team (Late st Contact Info) Description 05/26/2014 4:16 PM EST Anesthesia [place] [address] Buster Rajput MD [facility] [place] [address] Yury Kruse MD [facility] [place] [address] Anesthesia Record Procedure Summary Procedure Name Responsible [...] HEAD, BILATERAL performed by BARRERA OLIVER [facility] OR ??? Apply of hip casts, two legs 08/15/2010 CAST APPLICATION, HIP SPICA, BOTH LEGS performed by BARRERA OLIVER at [facility] OR ??? Removal deep implant 08/15/2010 REMOVAL IMPLANT, DEEP, BRUNO performed by BARRERA OLIVER at [facility] OR ??? Osteotomy femur shaft/supracondy 08/15/2010 ??OSTEOTOMY, FEMUR SHAFT OR SUPRACONDYLAR W/O FIXATION performed by BARRERA OLIVER at [facility] OR ??? Remove spinal canal catheter N/A 05/11/2014 REMOVAL OF INTRATHECAL OR EPIDURAL CATHETER performed by Jamaal Samuel MD at [facility] OR ??? Remove infusn device/pump N/A 05/11/2014 REMOVAL OF SPINE INFUSION PUMP performed by Jamaal Samuel MD at [facility] OR ? ? I&d, post spine, lumb/sacr/lumbosac N/A 05/20/2014 @I & D, OPEN, DEEP ABSCESS, LUMBAR, SACRAL, LUMBOSACRAL performed by Freddy Isbell MD at [facility] OR ??? Repr, dural/csf leak, not req laminectomy N/A 05/20/2014 @REPAIR DURAL\CSF LEAK,NOT REQUIRING LAMINECTOMY performed by Freddy Isbell MD at [facility] OR History Substance Use Topics ??? Smoking status: Never Smoker ??? Smokeless tobacco: Never Used Comment: NO SMOKERS IN THE HOME ??? Alcohol Use: No History Drug Use No Allergies Allergen Reactions ??? Fluoxetine Other (See Comments) HIVES, HEART RACES ??? Tegaderm [Transparent Dressings] Itching and Dermatitis Please use [id number] Medications: MAR and/or home medications have been [...] PM EST Office [place] [address] Hollie Ambriz MD [facility] [place] [address] documented as of this encounter Visit Diagnoses [...] mg documented in this encounter Care Teams Foam Rubber Fabricator Relationship Specialty Start Date End Date Naina Lindsey MD [address] [place] [address] PCP - General 03/19/10 08/25/16 documented as of this encounter
--- OUTSIDE RECORDS SUMMARY | 2023-12-07 15:26 | XMS_ITS | Encounter Summary ---
Author Organization [facility] Address [facility] [place] [address] Care Team Providers Care Education Sales Consultant Name Role Phone Naina Lindsey MD Primary Care Provider [phone] Reason for Visit * Reason Comments Post-op Problem Encounter Details Date Type Department Care Team (Latest Contact Info) Description 05/20/2014 8:13 PM EST - 06/02/2014 4:25 PM [facility] Hospital Encounter [place] [address] Belkis Louie MD [facility] [place] [address] Freddy Burciaga MD [facility] [place] [address] Jamaal Samuel MD [facility] [place] [address] Febrile illness, acute Discharge Disposition: Home with [...] Hospital Performed Vendor / contact information: [facility] Patient location post discharge: home Service requested: IV abx Start date: 05/26/2014 Responsible MD post discharge contact info: PCP Luis (Edit) Referral to Home Health - at DISCHARGE Routine, Clinic Performed Agency name and contact information: [facility] Patient location post discharge: home What services are requested: Registered Nurse, Home Health Aide, Physical Therapy, Occupational Therapy Start date: 05/26/2014 Responsible MD post discharge contact info: PCP PATIENT'S LOCATION: Tana Hayes Dirk [address] [place] [phone] (home) In discussion with the attending physician, it is certified that this patient is under their care and that they, or a Nurse Practitioner,Clinical Nurse specialist or Physician Straight Edger who is working directly with them, had [...] Continue with therapies OT: Continue with therapies SPEAKER WIRER: Continue support HOME HEALTH CARE AGENCY: [facility]. PHONE: [phone] FAX: [phone] Start of care: 05/26/14 Please note that any additional orders needs or changes will need to be obtained from this patient's PCP: MD Coby [address] / [place] [address] All A agencies which cover the area of patient's residence have been reviewed, either verbally or in writing, and patient/family have chosen the home health care agency noted Emergency contact: After hours and weekends, call the [facility] tricot knitting machine operator at and ask them to page the neurosurgery resident clinical science consultant. documented in this encounter Medications at [...] history and discussed the case with Dr. oBss. Ms. Shelton had left the floor by [...] 0.9% 50 mL Mini-Bag Plus 2 g XnzemtddsnlN6O ??? baclofen 10 mg Oral Nightly ??? [...] elevated HR this am S: Kenneth Valiente. [facility], [phone] singing ABCs and counting along with stretches [...] pt to d/chome with support and continued PT/OT/EMERGENCY VEHICLE TECHNICIAN/VNA services. Staff communication/Mobility Recommendations: Pt. Would benefit [...] timed interventions: 30 minutes for TherEx-F Pager: [phone] Mary Joe OT Occupational Therapy Rehabilitation Department * Isra Perez RN - 06/01/2014 2:43 PM EST Patient Name: Tana Shelton Patient Age: 18 y.o. Birthdate: 1995 Admit date: 05/20/2014 Attending Physician: Jamaal Samuel MD OFFICE OF CARE MANAGEMENT Farhana Perez RN Pager: [phone] CLINICAL YARD SUPERVISOR COTTON GIN PROGRESS NOTE e-DH reviewed. Report received from DEMI Sanchez. Patient continues to require acute inpatient care for the treatment of infection. Patient remains on triple abx while awaiting final cultures. [facility] have been referred to for discharge. Met with patient's mother at bedside. Mom had multiple questions the other day regarding equipment for home. Mattress for hospital bed was ordered and delivered to home from [facility]. Tomasa Sling was ordered and is to be delivered by [facility] when it ships to [facility] warehouse. TLSO brace to be fitted by [facility]. Mom also inquired about a new motorized wheelchair. Called [facility] in [place] to see if patient would qualify, left message with Oliver- the rehabilitation team lead for [facility]. Patient will need a assessment and lot [...] 0.9% 50 mL Mini-Bag Plus 2 g BoeavxcsrskC0O ??? baclofen 10 mg Oral Nightly ??? [...] has recovered and I can review the [facility] records and films * Natividad Esqueda, PT [...] family in a single story home in [place], [place]. Pt's mother reports that there is no stair requirement, and that she has all necessary equipment. Stairs: 0 without a rail to enter Baseline Mobility: Completely dependent for all care, home nursing VNA services 3x/week, school-based PT/OT/EMERGENCY VEHICLE TECHNICIAN, pt due to receive a communication device [...] than in previous treatment session, counting withthis tech writer during stretching Objective: Patient seen for [...] internal rotators, adductors ?? Pt helped this tech writer with opposite UE when performing stretching [...] session, playing with toys, playfully tricking this tech writer when counting during passive stretching, and [...] exercise Natividad Esqueda PT, DPT 05/31/2014 Pager: [phone] Physical Therapy Inpatient Rehabilitation Department * Nathalie [...] OF CARE MANAGEMENT Farhana Perez RN Pager: [phone] CLINICAL YARD SUPERVISOR COTTON GIN PROGRESS NOTE e-DH reviewed. Report received from DEMI Sanchez. Patient continues to require acute inpatient care for the treatment of infection. Patient is on triple abx. Patient needs a new mattress for her hospital bed at home. Patient's mother would like order placed with [employer]. Order pended and booking sent via [employer] Plan: CRC will continue to follow for [...] pt to d/chome with support and continued PT/OT/EMERGENCY VEHICLE TECHNICIAN/VNA services. Staff communication/Mobility Recommendations: Pt. Would benefit [...] timed interventions: 45 minutes for TherEx Pager: [phone] Mary Joe OT Occupational Therapy Rehabilitation Department * MaugireDarius T - 05/30/2014 6:41 AM EST Neurosurgery [...] 0.9% 50 mL Mini-Bag Plus 2 g IlfsmotgbwnY6L ??? baclofen 10 mg Oral Nightly ??? [...] OF CARE MANAGEMENT Farhana Perez RN Pager: [phone] CLINICAL YARD SUPERVISOR COTTON GIN PROGRESS NOTE e-DH reviewed. Report received from [...] as pt becomes available. Please contact this tech writer with any further questions or concerns. Thank you. Pager: [phone] Mary Joe, OTR/L Occupational Therapy Inpatient Rehabilitation [...] family in a single story home in [place], [place]. Pt's mother reports that there is no stair requirement, and that she has all necessary equipment. Stairs: 0 without a rail to enter Baseline Mobility: Completely dependent for all care, home nursing VNA services 3x/week, school-based PT/OT/EMERGENCY VEHICLE TECHNICIAN, pt due to receive a communication device [...] pt very smiley today, counting with this tech writer during stretching, showing off her favorite [...] exercise Natividad Esqueda, PT, DPT 05/29/2014 Pager: [phone] Physical Therapy Inpatient Rehabilitation Department * Wai [...] not hesitate to page us on pager [phone] with further questions or concerns. Patient discussed [...] 0.9% 50 mL Mini-Bag Plus 2 g IgcuucfjeimW9F ??? baclofen 10 mg Oral Nightly ??? [...] 0.9% 50 mL Mini-Bag Plus 2 g CudfirjpaklJ9H ??? baclofen 10 mg Oral Nightly ??? [...] CRC received call from EUNICE Hair, from [facility], [place] or Asking for status as they will follow her after discharge for IV antibiotic treatment. She will need an OPAT order faxed to above agency when she is ready for discharge as well as administration teaching for home. When ready for discharge, [facility] PHONE: [phone] FAX: [phone] will also need to be updated. Referral had been made by previous CRC. Covering pager #[phone] for pager #[phone]. * Darius Maguire T - 05/27/2014 8:23 [...] 0.9% 50 mL Mini-Bag Plus 2 g MnedrxvgqfsQ5A ??? baclofen 10 mg Oral Nightly ??? [...] clean and dry Wound without fluctuance [address] Assessment/Plan:: 18 y.o. female s/p removal [...] family in a single story home in [place], [place]. Pt's mother reports that there is no stair requirement, and that she has all necessary equipment. Stairs: 0 without a rail to enter Baseline Mobility: Completely dependent for all care, home nursing VNA services 3x/week, school-based PT/OT/EMERGENCY VEHICLE TECHNICIAN, pt due to receive a communication device [...] Natividad J Cavagnaro, PT, DPT 05/26/2014 Pager: [phone] Physical Therapy Inpatient Rehabilitation Department * Freddy Burciaga MD - 05/26/2014 6:27 AM EST Neurosurgery - Inpatient Progress Note ID: Tana Shelton, 18 y.o. female s/p removal of retained hardware, washout of infection 05/20 POD 6 Interval Hx: -ALEKSANDRA -Neurologically stable Objective: Medications: Scheduled Meds: ??? cefTAZidime (FORTAZ) 2g vial attach to sodium chloride 0.9% 50 mL Mini-Bag Plus 2 g DqwvbrynuzuI1P ??? baclofen 10 mg Oral Nightly ??? [...] (05/26) or when appropriate. Please page this tech writer if you have any questions, thank you. Natividad Esqueda PT Pager #[phone] Physical Therapy Inpatient Rehabilitation * Mary Joe, [...] pt to d/chome with support and continued PT/OT/EMERGENCY VEHICLE TECHNICIAN/VNA services. Spoke to CRC this am about [...] timed interventions: 27 minutes for TherEx Pager: [phone] Mary Joe OT Occupational Therapy Rehabilitation Department [...] 0.9% 50 mL Mini-Bag Plus 2 g QemgbmzzvlxE8G ??? baclofen 10 mg Oral Nightly ??? [...] of Care Management Farhana Perez RN Pager: [phone] Clinical Marine Superintendent Home IV Antibiotic Therapy Referral Note. Report received from NeuroSurgery Team that patient will require continued home IV antibiotic therapy after discharge from the hospital. Met with patient/family to discuss vendor and visiting nurse choices for home IV antibiotic therapy. Reviewed Home Infusion Vendors and Home Health Agencies that serve patient???s address and accept patient???s insurance. Home Health Agency: Patient requested referral to [facility] [employer]. PHONE: [phone] FAX: [phone]. Referrals sent via edischarge. Home Infusion Vendor: Patient requested referral to [place], [place] Tel: or Fax: . Referrals sent [...] 0.9% 50 mL Mini-Bag Plus 2 g JfeostvsvcqI6I ??? baclofen 10 mg Oral Nightly ??? [...] 0.9% 50 mL Mini-Bag Plus 2 g VfuyzpdhshdJ4S ??? baclofen 10 mg Oral Nightly ??? [...] PM EST Office of Care Management Clinical Marine Superintendent Patient Name: Tana Shelton : 1995, 18 [...] None on File (x) HEALTH /PRESCRIPTION COVERAGE: [place] [facility] CURRENT HOME/COMMUNITY SERVICES/EQUIPMENT: DME: [facility], wheelchair, tomasa lift, shower chair. Home Health Agency: [facility] PRIMARY CARE PHYSICIAN: NAINA LINDSEY MD [phone] POTENTIAL DISCHARGE NEEDS: Resume vna visits. Mother stated that she has [facility] - RN and Aide currently. Waiting to confirm this and pt needs. Might need home IV antibx. TRANSPORTATION @ D/C: family PLAN: CRC will continue to monitor progress, follow for continuity of care and assist with discharge planning while hospitalized Lesly Jesus RN Office of Care Management Clinical Marine Superintendent Covering for Farhana Chris [phone] Pager [phone] * Yandy Dasilva, PharmD - 05/22/2014 9:46 AM EST Clinical Pharmacist Note-Vanc Tana Barlowrd [id number] 1995 Tana Barlowrd is a 18 y.o. [...] have. Alternately, during off-hours you may call [phone] to contact a pharmacist. Yandy Dasilva, PHARMD Pager [phone] * Freddy Burciaga MD - 05/22/2014 6:59 [...] AND Vancomycin, trough AND Vancomycin Level - [facility] Order Reminder, oxyCODONE Vitals: Temp: [...] not seem to be of REGISTERED NURSE SURGICAL SERVICES origin. Continue triple antibiotics. ID consult. Cultures [...] given to [facility]. Transferred to [place] [id number] with transport services, RN + family members. Please call Anurag ICU-RN at [phone] with regards to any questions post transfer. [...] mcL Appearance UA Hazy (*) Clear Spec [place] UA 1.026 1.002 - 1.030 Color UA [...] SHELTON Ordered By: CELSONIKITETO Freddy DAILEY MR#: [id number] LOC: OR /Sex: 1995 (18 years), Female PROCEDURE: Tissue Culture SOURCE: Back COLLECTED: 05/20/2014 20:20 FREE TEXT SOURCE: Lumbar Wound Culture STARTED: 05/20/2014 22:13 STAINS / PREPARATIONS Gram Stain Report Verified:05/20/2014 22:28 Few White Blood Cells seen No microorganisms seen. TISSUE CULTURE Result Value Ref Range Tissue Culture Value: Patient Name: TANA SHELTON Ordered By: Freddy BURCIAGA MR#: [id number] LOC: OR /Sex: 1995 (18 years), Female [...] II initiated 0040: Report given to Jenn GAS ROLLER OPERATOR info reviewed/questions answered, pt ready for [...] to the planned procedure. Hand Hygiene: The vice president planning did perform hand hygiene prior to line insertion. Catheter type: PICC Lot number: [id number] Procedure Technique: Skin was prepped with chlorhexidine. [...] warm and was flushed. They called the clinical science consultant neurosurgeon, who advised that they come [...] BOTH LEGS performed by YAS OLIVER at [facility] OR ??? Removal deep implant 08/15/2010 REMOVAL IMPLANT, DEEP, BRUNO performed by YAS OLIVER at [facility] OR ??? Osteotomy femur shaft/supracondy 08/15/2010 ??OSTEOTOMY, FEMUR SHAFT OR SUPRACONDYLAR W/O FIXATION performed by YAS OLIVER at [facility] OR ??? Remove spinal canal catheter N/A 05/11/2014 REMOVAL OF INTRATHECAL OR EPIDURAL CATHETER performed by Jamaal Samuel MD at [facility] OR ??? Remove infusn device/pump N/A 05/11/2014 REMOVAL OF SPINE INFUSION PUMP performed by Jamaal Samuel MD at [facility] OR Medications: No current facility-administered [...] stepfather Tobacco exposure:No Day care/year in school: [employer] Physical Exam: Vitals: Patient Vitals for [...] mcL Appearance UA Hazy (*) Clear Spec [place] UA 1.026 1.002 - 1.030 Color UA [...] 05/21/14 0127 Lilli Esquivel MD Resident 05/21/14 5960 Associated attestation - Belkis Louie MD - [...] Hospital Performed Vendor / contact information: [facility] Patient location post discharge: home Service requested: IV abx Start date: 05/26/2014 Responsible MD post discharge contact info: PCP New (Edit) Referral to Home Health - at DISCHARGE Routine, Clinic Performed Agency name and contact information: [facility] Patient location post discharge: home What services are requested: Registered Nurse, Home Health Aide, Physical Therapy, Occupational Therapy Start date: 06/06/2014 Responsible MD post discharge contact info: PCP PATIENT'S LOCATION: Tana Freddy Shelton [address] [place] [phone] (home) In discussion with the attending physician, it is certified that this patient is under their care and that they, or a Nurse Practitioner,Clinical Nurse specialist or Physician Straight Edger who is working directly with them, had [...] Continue with therapies OT: Continue with therapies SPEAKER WIRER: Continue support HOME HEALTH CARE AGENCY: [facility] PHONE: [phone] FAX: [phone] Start of care: 05/26/14 Please note that any additional orders needs or changes will need to be obtained from this patient's PCP: NAINA LINDSEY MD [address] / [place] [address] All VNA agencies which cover the area of patient's residence have been reviewed, either verbally or in writing, and patient/family have chosen the home health care agency noted Emergency contact: After hours and weekends, call the [facility] tricot knitting machine operator at and ask them to page the neurosurgery resident clinical science consultant. * Plan of Care - Margot [...] Health Knowledge, Opportunity for Enhanced (Adult, NICU, Brook[place], Obstetrics, Pediatric) Goal: Identify Signs and Symptoms [...] agreement Tana appeared more comfortable. Approximately 1740, Tnaa became upset; Tana was changed and repositioned, [...] yo. Supervision: Continuous; Moraima. Fannie at home cutter apprentice hand at bedside this morning ; Mom arrived [...] AM EST Clinical Pharmacist Note-Vancomycin Tana Shelton [id number] 1995 Tana Shelton is a 18 y.o. [...] have. Alternately, during off-hours you may call [phone] to contact a pharmacist. Elmer Tobin PHARMD Pager [phone] * Plan of Care - Leana Hicks [...] Burciaga MD - 05/26/2014 4:52 PM EST [facility] Operative Note Patient Name: Tana Shelton : [id number] MR#: [id number] Case Date: 05/26/2014 Surgeon: Surgeon(s) and Role: [...] (Interventions Implemented as Appropriate) 05/22/14 0634 05/24/14 9814 Discharge Needs Assessment Concerns to be Addressed [...] Health Knowledge, Opportunity for Enhanced (Adult, NICU, Brook[place], Obstetrics, Pediatric) Goal: Knowledgeable about Health Subject/Topic Patient will demonstrate the desired outcomes. Outcome: Outcome (s) achieved Date Met: 05/25/14 05/25/14 0802 Health Knowledge, Opportunity for Enhanced (Adult, NICU, , Obstetrics, Pediatric) Knowledgeable about Health Subject/Topic achieves [...] (Interventions Implemented as Appropriate) 05/22/14 0634 05/24/14 3095 Discharge Needs Assessment Concerns to be Addressed [...] HEAD, BILATERAL performed by YAS OLIVER [facility] OR ??? Apply of hip casts, two legs 08/15/2010 CAST APPLICATION, HIP SPICA, BOTH LEGS performed by YAS OLIVER at [facility] OR ??? Removal deep implant 08/15/2010 REMOVAL IMPLANT, DEEP, BRUNO performed by YAS OLIVER at [facility] OR ??? Osteotomy femur shaft/supracondy 08/15/2010 ??OSTEOTOMY, FEMUR SHAFT OR SUPRACONDYLAR W/O FIXATION performed by YAS OLIVER at [facility] OR ??? Remove spinal canal catheter N/A 05/11/2014 REMOVAL OF INTRATHECAL OR EPIDURAL CATHETER performed by Jamaal Samuel MD at [facility] OR ??? Remove infusn device/pump N/A 05/11/2014 REMOVAL OF SPINE INFUSION PUMP performed by Jamaal Samuel MD at [facility] OR ? ? I&d, post spine, lumb/sacr/lumbosac N/A 05/20/2014 @I & D, OPEN, DEEP ABSCESS, LUMBAR, SACRAL, LUMBOSACRAL performed by Freddy Burciaga MD at [facility] OR ??? Repr, dural/csf leak, not req laminectomy N/A 05/20/2014 @REPAIR DURAL\CSF LEAK,NOT REQUIRING LAMINECTOMY performed by Freddy Burciaga MD at [facility] OR Social and Developmental History: Patient lives with her family in a single level home in [place], [place]. Pt's mother reports that their home [...] has an older sister who lives in [place] and 3 younger brothers. She likes to [...] RN and mom assist. Feeding: per mom: LUMBEE assist for use of utensils; not observed [...] to d/c home with support and continued PT/OT/EMERGENCY VEHICLE TECHNICIAN/VNA services. Spoke with CRC about consultfor new [...] you for this occupational therapy consult. Pager: [phone] Mary Joe OT 05/24/2014 Occupational Therapy Rehabilitation [...] BOTH LEGS performed by YAS OLIVER at [facility] OR ??? Removal deep implant 08/15/2010 REMOVAL IMPLANT, DEEP, BRUNO performed by YAS OLIVER at [facility] OR ??? Osteotomy femur shaft/supracondy 08/15/2010 ??OSTEOTOMY, FEMUR SHAFT OR SUPRACONDYLAR W/O FIXATION performed by YAS OLIVER at [facility] OR ??? Remove spinal canal catheter N/A 05/11/2014 REMOVAL OF INTRATHECAL OR EPIDURAL CATHETER performed by Jamaal Samuel MD at [facility] OR ??? Remove infusn device/pump N/A 05/11/2014 REMOVAL OF SPINE INFUSION PUMP performed by Jamaal Samuel MD at [facility] OR ? ? I&d, post spine, lumb/sacr/lumbosac N/A 05/20/2014 @I & D, OPEN, DEEP ABSCESS, LUMBAR, SACRAL, LUMBOSACRAL performed by Freddy Burciaga MD at [facility] OR ??? Repr, dural/csf leak, not req laminectomy N/A 05/20/2014 @REPAIR DURAL\CSF LEAK,NOT REQUIRING LAMINECTOMY performed by Freddy Burciaga MD at [facility] OR Social History: Patient lives with her family in a single story home in [place]. Pt's mother reports that there is no stair requirement, and that she has all necessary equipment. Stairs: 0 without a rail to enter Baseline Mobility: Completely dependent for all care, home nursing VNA services 3x/week, school-based PT/OT/EMERGENCY VEHICLE TECHNICIAN, pt due to receive a communication device [...] appropriate and joins in counting with this tech writer while stretching Objective: Pt seen for [...] minutes Natividad Esqueda PT, DPT 05/24/2014 Pager: [phone] Physical Therapy Inpatient Rehabilitation Department * Plan [...] it's ability to penetrate the REGISTERED NURSE SURGICAL SERVICES. We need todiscuss whether to pursue an [...] to 40 mEq. One dose of IV [id number] mEq administered per orders. Re-check of K [...] placement of baclofen pump in 2007 in [place]. Due to lack of efficacy the baclofen [...] and Lipase were normal. Per her daycare care giver, may be related to administration of oxycodone as this has been issue in the past. Cannotexclude component of baclofen withdrawal, but less likely. No current concern for acute REGISTERED NURSE SURGICAL SERVICES process. - Serial exams. Ensure daily BMs [...] may not have the best REGISTERED NURSE SURGICAL SERVICES penetration unless meninges are actually inflamed. - [...] fluid only. MD called for antiemetic and [place] tylenol. Zofran given when order receivedand med [...] PREVENTION: Assistance: Full assist, mom at bedside. operating room aide will be coming in today to [...] Burciaga MD - 05/21/2014 11:53 AM EST [facility] Operative Note Patient Name: Tana Shelton : [id number] MR#: [id number] Case Date: 05/20/2014 - 05/21/2014 Surgeon: Surgeon(s) and Role: * Freddy Burciaga MD - Primary * Dayady Humphrey MD - Resident-Surgeon Mauricio * Gaby [...] BOTH LEGS performed by YAS OLIVER at [facility] OR ??? Removal deep implant 08/15/2010 REMOVAL IMPLANT, DEEP, BRUNO performed by YAS OLIVER at [facility] OR ??? Osteotomy femur shaft/supracondy 08/15/2010 ??OSTEOTOMY, FEMUR SHAFT OR SUPRACONDYLAR W/O FIXATION performed by YAS OLIVER at [facility] OR ??? Remove spinal canal catheter N/A 05/11/2014 REMOVAL OF INTRATHECAL OR EPIDURAL CATHETER performed by Jamaal Samuel MD at [facility] OR ??? Remove infusn device/pump N/A 05/11/2014 REMOVAL OF SPINE INFUSION PUMP performed by Jamaal Samuel MD at [facility] OR No family history on [...] mcL Appearance UA Hazy (*) Clear Spec [place] UA 1.026 1.002 - 1.030 Color UA [...] TANA SHELTON Ordered By: Freddy BURCIAGA MR#: [id number] LOC: OR /Sex: 1995 (18 years), Female PROCEDURE: Tissue Culture SOURCE: Back COLLECTED: 05/20/2014 20:20 FREE TEXT SOURCE: Lumbar Wound Culture STARTED: 05/20/2014 22:13 STAINS / PREPARATIONS Gram Stain Report Verified:05/20/2014 22:28 Few White Blood Cells seen No microorganisms seen. TISSUE CULTURE Result Value Range Tissue Culture Value: Patient Name: TANA SHELTON Ordered By: Freddy BURCIAGA MR#: [id number] LOC: OR /Sex: 1995 (18 years), Female [...] PM EST Office [place] [address] Hollie Ambriz MD [facility] [place] [address] Pending Results Name Type Priority Associated Diagnoses [...] REQUIRING LAMINECTOMY Routine 05/20/2014 10:22 PM EST DEER FARMER CULTURE Routine 5 10:01 PM EST ANAEROBIC [...] Metabolic Panel (non-fasting) (06/02/2014 5:55 AM EST) [place] [facility] Glucose 75 60 - 199 mg/dL CERNER MILLENNIUM Comment:Diabetes: >=200 mg/d L plus symptoms Blood Urea Nitrogen 5(L) 8 - 18 mg/dL CERNER MILLENNIUM Creatinine 0.30(L) 0.70 - 1.20 mg/dL CERNER MILLENNIUM Comment: Please note that the pediatric reference intervals supplied above were not validated at [facility]. Results from [...] the following links into your internet browser. [email or web address]/[email or web address] Blood specimen (specimen) 06/02/2014 5:55 AM EST 06/02/2014 6:09 AM EST Narrative Resulting Agency Comment Spec In Lab S Alek Burciaga MD CHEMISTRY ORDERABLES Performing Organization Address [facility]/ZIP Co de Phone Number [facility] * (ABNORMAL) Sedimentation rate (06/01/2014 12:40 PM EST) Sedimentation Rate Automated 46(H) 0 - 20 mm[facility] Blood specimen (specimen) Venous Draw / Unknown 06/01/2014 12:40 PM EST 06/01/2014 12:48 PM EST Narrative Resulting Agency Comment Spec In Lab S Alek Burciaga MD HEMATOLOGY ORDERABLE S Performing Organization Address [facility] de Phone Number [facility] * High Sensitivity CRP (06/01/2014 12:40 PM EST) C-Reactive Protein High Sensitivity 15.4 mg/L [facility] Comment: Interpretations: 1) For accurate cardiac risk [...] Address City/Va Hospital/ZIP Co de Phone Number CERNER MILLENNIUM [...] S Alek Burciaga MD HEMATOLOGY ORDERABLE S [facility] * (ABNORMAL) Basic Metabolic Panel (non-fasting) (06/01/2014 12:40 PM EST) [facility] Glucose 95 60 - 199 mg/dL CERNER MILLENNIUM Comment:Diabetes: >=200 mg/d L plus symptoms Blood Urea Nitrogen 4(L) 8 - 18 mg/dL CERNER MILLENNIUM Creatinine 0.38(L) 0.70 - 1.20 mg/dL CERNER MILLENNIUM Comment: Please note that the pediatric reference intervals supplied above were not validated at [facility]. Results from [...] the following links into your internet browser. [email or web address] [email or web address] Blood specimen (specimen) 06/01/2014 12:40 PM EST [...] HEMATOLOGY ORDERABLE S [facility] MILLENNIUM * (ABNORMAL) Basic Metabolic Panel (non-fasting) (05/30/2014 6:50 AM EST) Glucose 82 60 - 199 mg/dL CERNER MILLENNIUM Comment:Diabetes: >=200 mg/d L plus symptoms Blood Urea Nitrogen 4(L) 8 - 18 mg/dL CERNER MILLENNIUM Creatinine 0.29(L) 0.70 - 1.20 mg/dL CERNER MILLENNIUM Comment: Please note that the pediatric reference intervals supplied above were not validated at [facility]. Results from [...] the following links into your internet browser. [email or web address] Blood specimen (specimen) 05/30/2014 6:50 AM EST [...] Metabolic Panel (non-fasting) (05/29/2014 7:13 AM EST) [facility] Glucose 83 60 - 199 mg/dL CERNER MILLENNIUM Comment:Diabetes: >=200 mg/d L plus symptoms Blood Urea Nitrogen 5(L) 8 - 18 mg/dL CERNER MILLENNIUM Creatinine 0.31(L) 0.70 - 1.20 mg/dL CERNER MILLENNIUM Comment: Please note that the pediatric reference intervals supplied above were not validated at [facility]. Results from [...] the following links into your internet browser. [email or web address] [email or web address] Blood specimen (specimen) 05/29/2014 7:13 AM EST [...] Address City/Va Hospital/ZIP Co de Phone Number CERALIN TOMASENNIUM [...] Lab S Alek Burciaga MD CHEMISTRY ORDERABLES [facility] * (ABNORMAL) Basic Metabolic Panel (non-fasting) (05/28/2014 9:00 AM EST) Glucose 121 60 - 199 mg/dL CERNER MILLENNIUM Comment:Diabetes: >=200 mg/d L plus symptoms Blood Urea Nitrogen 4(L) 8 - 18 mg/dL CERNER MILLENNIUM Creatinine 0.29(L) 0.70 - 1.20 mg/dL CERNER MILLENNIUM Comment: Please note that the pediatric reference intervals supplied above were not validated at [facility]. Results from [...] the following links into your internet browser. [email or web address] [email or web address] Blood specimen (specimen) 05/28/2014 9:00 AM EST 05/28/2014 9:23 AM EST Narrative Resulting Agency Comment Spec In Lab S lAek Burciaga MD CHEMISTRY ORDERABLES CERNER MILLENNIUM * [...] intervals supplied above were not validated at [facility]. Results from [...] the following links into your internet browser. [email or web address] [email or web address]/DHMCnkf Blood specimen (specimen) 05/27/2014 5:30 AM EST 05/27/2014 5:39 AM EST Narrative Resulting Agency Comment Spec In Lab S Alek Burciaga MD CHEMISTRY ORDERABLES LINDA KEMPIUM * Anaerobic Culture (05/26/2014 5:30 PM EST) Anaerobic Culture ? Patient Name: TANA SHELTON ? Ordered By: Freddy BURCIAGA ? MR#: [id number] ?LOC: ??[place] ? /Sex: ??1995 (18 years), [...] ? Ordered By: Freddy BURCIAGA ? MR#: [id number] ?LOC: ??[place] ? /Sex: ??1995 (18 years), [...] S ? Patient: TANA SHELTON ? MR#: [id number] ? S=Susceptible ??I=Intermediate ??R=Resistant ??NA=Not Applicable ? [...] ? Ordered By: Freddy BURCIAGA ? MR#: [id number] ?LOC: ??[place] ? /Sex: ??1995 (18 years), [...] Burciaga MD MICROBIOLOGY - GENER AL ORDERABLES [facility] * Tissue culture (05/26/2014 5:30 PM EST) Tissue Culture ? Patient Name: TANA SHELTON ? Ordered By: Freddy BURCIAGA ? MR#: [id number] ?LOC: ??[place] ? /Sex: ??1995 (18 years), [...] plates. ? Patient: SHELTONTANA Freddy ? MR#: [id number] ? SUSCEPTIBILITY RESULTS ? Coagulase negative Staphylococcus [...] (1) ? Gentamicin is not appropriate for Nance-therapy. ? (2) ? Penicillin resistant, Nafcillin susceptible Staphylococci are resistant to ? B-lactamase labile ? Penicillins including Ampicillin and Piperacillin, but susceptible to B- ? lactamase shelbie Penicillins ? (Nafcillin), B-lactamase inhibitor combinations, first and second ? generation Cephalosporins including ? Cefazolin, and to Cefepime and Meropenem. ? CRISTAALIN TOMASCHRISTINARAPHAEL Specimen of unknown material (specimen) 05/26/2014 5:30 PM EST 05/26/2014 5:41 PM EST Comment:ANTERIOR FLANK Narrative Resulting Agency Comment Spec In Lab S Alek Burciaga MD MICROBIOLOGY - GENER AL ORDERABLES CERNER MILLENNIUM * Anaerobic Culture (05/26/2014 5:30 PM EST) Anaerobic Culture ? Patient Name: TANA SHELTON ? Ordered By: Freddy BURCIAGA ? MR#: [id number] ?LOC: ??[place] ? /Sex: ??1995 (18 years), [...] ? Ordered By: Freddy BURCIAGA ? MR#: [id number] ?LOC: ??[place] ? /Sex: ??1995 (18 years), [...] BANK LAB ORDER MYRANDA Performing Organization Address [facility] Co de Phone Number LINDA BASHIR * ABO/Rh Typing (05/26/2014 12:40 PM EST) ABORH Type O Pos LINDA BASHIR Blood specimen (specimen) 05/26/2014 12:40 PM EST 05/26/2014 12:59 PM EST Narrative Resulting Agency Comment Spec In Lab S Alek Burciaga MD BLOOD BANK LAB ORDER MYRANDA Performing Organization Address [facility] Co de Phone Number LINDA BASHIR * [...] intervals supplied above were not validated at [facility]. Results from [...] the following links into your internet browser. [email or web address] [email or web address] Blood specimen (specimen) 05/26/2014 4:15 AM EST 05/26/2014 4:35 AM EST Narrative Resulting Agency Comment Spec In Lab S Alek Burciaga MD CHEMISTRY ORDERABLES LINDA BASHIR * Place PICC Line: Contact Vascular Access Page [phone] (05/25/2014 4:01 PM EST) Narrative [place] [...] to the planned procedure. Hand Hygiene: The vice president planning did perform hand hygiene prior to line insertion. Catheter type: PICC Lot number: [id number] Procedure Technique: Skin was prepped with chlorhexidine. [...] focal. COMPARISON: Scoliosis radiographs from 12/16/2011 FINDINGS: Psychological Operations views demonstrate severe rightward scoliotic deformity centered [...] No gross collections in the cervical spine. Psychological Operations coronal image 8 of series 8 demonstrates [...] inf,focal. COMPARISON: Scoliosis radiographs from 12/16/2011 FINDINGS: Psychological Operations views demonstrate severe rightward scoliotic deformity centered [...] abnormalities. No grosscollections in the cervical spine. Psychological Operations coronal image 8 of series 8 demonstrates [...] Narrative 05/25/2014 4:10 PM EST See accession #[id number] for dictation of this study. This report was reviewed by Andrade Rebolledo MD at 05/25/2014 4:05 PM Film and interpretation reviewed by the attending Procedure Note Andrade Roth MD - 05/25/2014 See accession #[id number] for dictation of this study. This report was reviewed by Andrade Rebolledo MD at 05/25/2014 4:05 PM Film and interpretation reviewed by the attending Alek Dumont [place] [facility] MRI ORDERABLES * Differential, Automated [...] MD HEMATOLOGY ORDERABLE S Performing Organization Address [facility] de Phone Number CERALIN TOMASENNIUM [...] MD HEMATOLOGY ORDERABLE S Performing Organization Address [facility] Co de Phone Number LINDA KEMPIUM * (ABNORMAL) Basic Metabolic Panel (non-fasting) (05/25/2014 5:00 AM EST) Glucose 87 60 - 199 mg/dL CERNER MILLENNIUM Comment:Diabetes: >=200 mg/d L plus symptoms Blood Urea Nitrogen 6(L) 8 - 18 mg/dL CERNER MILLENNIUM Creatinine 0.27(L) 0.70 - 1.20 mg/dL CERNER MILLENNIUM Comment: Please note that the pediatric reference intervals supplied above were not validated at [facility]. Results from [...] the following links into your internet browser. [email or web address] [email or web address] Blood specimen (specimen) 05/25/2014 5:00 AM EST [...] intervals supplied above were not validated at [facility]. Results from [...] the following links into your internet browser. [email or web address]://[email or web address] [email or web address]/[email or web address] Blood specimen (specimen) 05/24/2014 12:42 PM EST 05/24/2014 12:42 PM EST Narrative Resulting Agency Comment Spec In Lab S Alek Burciaga MD CHEMISTRY ORDERABLES Performing Organization Address [facility] de Phone Number CERALIN MILLENNIUM * Vancomycin, [...] Burciaga MD CHEMISTRY ORDERABLES Performing Organization Address [facility] de Phone Number CERALIN MILLENNIUM * (ABNORMAL) [...] Smith MD CHEMISTRY ORDERABLES Performing Organization Address [facility] Co de Phone Number [facility] * Lipase (05/22/2014 12:45 PM EST) Pathologist [facility] Lipase 44 0 - 60 unit/L [facility] MILLENNIUM Blood specimen (specimen) 05/22/2014 12:45 PM EST 05/22/2014 1:03 PM EST Narrative Resulting Agency Comment Spec In Lab Lucho Smith MD CHEMISTRY ORDERABLES Performing Organization Address [facility] Phone Number [facility] * Amylase (05/22/2014 12:45 PM EST) Pathologist [facility] Amylase 89 28 - 100 unit/L [facility] MILLENNIUM Blood specimen (specimen) 05/22/2014 12:45 PM EST 05/22/2014 1:03 PM EST Narrative Resulting Agency Comment Spec In Lab Lucho Smith MD CHEMISTRY ORDERABLES Performing Organization Address [facility] Phone Number [facility] * (ABNORMAL) Comprehensive metabolic panel (non-fasting) (05/22/2014 12:45 PM EST) [facility] Glucose 81 60 - 199 mg/dL [facility] MILLENNIUM Comment:Diabetes: >=200 mg/d L plus symptoms Blood Urea Nitrogen 2(L) 8 - 18 mg/dL CERNER MILLENNIUM Creatinine 0.31(L) 0.70 - 1.20 mg/dL CERNER MILLENNIUM Comment: Please note that the pediatric reference intervals supplied above were not validated at [facility]. Results from pediatric patients should be interpreted in conjunction to the patient's age, height and muscle mass. Sodium 142 135 - 145 mmol/L [facility] MILLENNIUM Potassium 3.6 3.5 - 5.0 mmol/L [...] 8.5 - 10.5 mg/dL CERNER MILLENNIUM Comment:result rechecked-[facility] Protein, Total 7.1 6.4 - 8.3 gm/dL [...] the following links into your internet browser. [email or web address] [email or web address] Blood specimen (specimen) 05/22/2014 12:45 PM EST 05/22/2014 1:03 PM EST Narrative Resulting Agency Comment Spec In Lab Lucho Smith MD CHEMISTRY ORDERABLES [facility] * Differential, Automated (05/22/2014 6:10 AM [...] Platelet Volume 10.7 9.0 - 12.0 fL [facility] MILLENNIUM Blood specimen (specimen) 05/22/2014 6:10 AM EST 05/22/2014 6:22 AM EST Narrative Resulting Agency Comment Spec In Lab S Alek Burciaga MD HEMATOLOGY ORDERABLE S Performing Organization Address [facility] Co de Phone Number [facility] * Vancomycin, trough (05/22/2014 6:10 AM EST) Vancomycin, Trough 6.1 mg/L C [facility] THOMENNIUM Comment: Therapeutic range for complicated infections [...] Burciaga MD CHEMISTRY ORDERABLES Performing Organization Address [facility]/ZIP Co de Phone Number [facility] * (ABNORMAL) Basic Metabolic Panel (non-fasting) (05/22/2014 6:10 AM EST) Glucose 86 60 - 199 mg/dL [facility] Comment:Diabetes: >=200 mg/d L plus symptoms Blood Urea Nitrogen 3(L) 8 - 18 mg/dL [facility] Creatinine 0.27(L) 0.70 - 1.20 mg/dL CERNER MILLENNIUM Comment: Please note that the pediatric reference intervals supplied above were not validated at [facility]. Results from [...] the following links into your internet browser. [email or web address]://[email or web address] [email or web address] Blood specimen (specimen) 05/22/2014 6:10 AM EST [...] Metabolic Panel (non-fasting) (05/21/2014 4:23 AM EST) [facility] Glucose 107 60 - 199 mg/dL CERNER MILLENNIUM Comment:Diabetes: >=200 mg/d L plus symptoms Blood Urea Nitrogen 3(L) 8 - 18 mg/dL CERNER MILLENNIUM Comment:result rechecked- ll u Creatinine 0.30(L) 0.70 - 1.20 mg/dL CERNER MILLENNIUM Comment: Please note that the pediatric reference intervals supplied above were not validated at [facility]. Results from [...] the following links into your internet browser. [email or web address]://[email or web address] [email or web address]/DHMCnkf Blood specimen (specimen) 05/21/2014 4:23 AM EST 05/21/2014 4:38 AM EST Narrative Resulting Agency Comment Spec In Lab Freddy Burciaga MD CHEMISTRY ORDERABLES [facility] * [employer] Supervisor Culture (05/20/2014 10:01 PM EST) [employer] Supervisor Culture ? Patient Name: TANA SHELTON ? Ordered By: Freddy BURCIAGA ? MR#: [id number] ?LOC: ??[place] ? /Sex: ??1995 (18 years), ? Female ? PROCEDURE: [employer] Supervisor Culture ?SOURCE: Other ? COLLECTED: 05/20/2014 22:01 ? BODY SITE: Other ? STARTED: 05/20/2014 22:22 ?FREE TEXT SOURCE: retained baclafin pump tubing ? FINAL REPORT ? Final Report ? Verified:05/24/2014 10:28 ? Pseudomonas aeruginosa isolated ? Susceptibilities previously reported ? PRELIMINARY REPORT ? Preliminary Report ? Verified:05/23/2014 11:27 ? Pseudomonas aeruginosa isolated ? Susceptibilities previously reported ? [facility] Specimen of unknown material (specimen) TOPOGRAPHY UNKNOWN / Unknown 05/20/2014 10:01 PM EST 05/20/2014 10:21 PM EST Comment:RETAINED BACLAFIN PU MP TUBING Narrative Resulting Agency Comment Spec In Lab Freddy Burciaga MD MICROBIOLOGY - GENER AL ORDERABLES [facility] * Anaerobic Culture (05/20/2014 9:25 PM EST) Anaerobic Culture ? Patient Name: TANA SHELTON ? Ordered By: Freddy BURCIAGA ? MR#: [id number] ?LOC: ??[place] ? /Sex: ??1995 (18 years), [...] ? Ordered By: Freddy BURCIAGA ? MR#: [id number] ?LOC: ??[place] ? /Sex: ??1995 (18 years), [...] ?S ? Tobramycin ? S ? Patient: KALYAN SHELTONLIE S ? MR#: [id number] ? S=Susceptible ??I=Intermediate ??R=Resistant ??NA=Not Applicable ? [...] ? Ordered By: Freddy BURCIAGA ? MR#: [id number] ?LOC: ??[place] ? /Sex: ??1995 (18 years), [...] ? Ordered By: Freddy BURCIAGA ? MR#: [id number] ?LOC: ??[place] ? /Sex: ??1995 (18 years), [...] ? Ordered By: BELKIS LOUIE ? MR#: [id number] ?LOC: ??[place] ? /Sex: ??1995 (18 years), ? Female ? PROCEDURE: Urine Culture ?[facility] ? COLLECTED: 05/20/2014 18:46 ? STARTED: 05/20/2014 [...] Urine Dipstick Hazy(A) Clear CERNER MILLENNIUM Specific [place] Urine Automated 1.026 1.002 - 1.030 CERNER [...] Louie MD URINE ORDERABLES Performing Organization Address [facility] de Phone Number LINDA BASHIR * L-Lactate2 Whole Blood (05/20/2014 6:17 PM EST) Lactate WB 1.6 0.5 - 2.2 mmol/L CERALIN TOMASENNIUM Blood specimen (specimen) 05/20/2014 6:17 PM EST 05/20/2014 6:17 PM EST Belkis Louie MD CHEMISTRY ORDERABLES Performing Organization Address [facility] de Phone Number LINDA BASHIR * Blood culture (05/20/2014 6:00 PM EST) Blood Culture ? Patient Name: TANA SHELTON ? Ordered By: BELKIS LOUIE ? MR#: [id number] ?LOC: ??[place] ? /Sex: ??1995 (18 years), [...] BLOOD ORDERABLES Performing Organization Address [facility] Co de Phone Number LINDA KEMPIUM * Green Tube HOLD (05/20/2014 5:15 PM EST) Green Hold Sample in lab. LINDA TOMASENNIUM Blood specimen (specimen) Venous Draw / Unknown 05/20/2014 5:15 PM EST 05/20/2014 5:32 PM EST Belkis Louie MD CHEMISTRY ORDERABLES Performing Organization Address [facility] de Phone Number LINDA TOMASENNIUM * Differential, [...] ? Ordered By: BELKIS LOUIE ? MR#: [id number] ?LOC: ??[place] ? /Sex: ??1995 (18 years), [...] BLOOD ORDERABLES Performing Organization Address [facility] Co de Phone Number [facility] * Glucose, random (05/20/2014 5:15 PM EST) Glucose 81 60 - 199 mg/dL [facility] Comment:Diabetes: >=200 mg/d L plus symptoms Blood specimen (specimen) 05/20/2014 5:15 PM EST 05/20/2014 5:31 PM EST Narrative Resulting Agency Comment Spec In Lab Belkis Louie MD CHEMISTRY ORDERABLES Performing Organization Address [facility] de Phone Number [facility] * (ABNORMAL) Creatinine (05/20/2014 5:15 PM EST) Creatinine 0.37(L) 0.70 - 1.20 mg/dL [facility] Comment: Please note that the pediatric reference intervals supplied above were not validated at [facility]. Results from pediatric patients should be interpreted in conjunction to the patient's age, height and muscle mass. Est Glomerular Filtration Rate >60 >=60 [facility] Comment: This estimated GFR (eGFR) [...] the following links into your internet browser. [email or web address] Blood specimen (specimen) 05/20/2014 5:15 PM EST 05/20/2014 5:31 PM EST Narrative Resulting Agency Comment Spec In Lab Belkis Louie MD CHEMISTRY ORDERABLES [facility] * BUN (05/20/2014 5:15 PM EST) Blood Urea Nitrogen 9 8 - 18 mg/dL CERNER MILLENNIUM Blood specimen (specimen) 05/20/2014 5:15 PM EST 05/20/2014 5:31 PM EST Narrative Resulting Agency Comment Spec In Lab Belksi Louie MD CHEMISTRY ORDERABLES Performing Organization Address [facility] Co de Phone Number CERALIN TOMASENNIUM * [...] Louie MD CHEMISTRY ORDERABLES Performing Organization Address [facility]/State/ZIP Co de Phone Number LINDA KEMPIUM documented [...] Indication for (Active or Suspected): REGISTERED NURSE SURGICAL SERVICES/Meningitis Given 06/02/2014 5:57 AM EST 2 g 100 mL/hr Given 06/01/2014 10:41 PM EST 2 g 100 mL/hr Given 06/01/2014 2:10 PM EST 2 g 100 mL/hr cefTRIAXone (ROCEPHIN) 1g in dextrose 5% 50mL 1 g, Intravenous, ONCE, 1 dose, On 05/20/14 at 2315, Administer over 30 Minutes, Indication for (Active or Suspected): REGISTERED NURSE SURGICAL SERVICES/Meningitis Given 05/21/2014 1:32 AM EST 1 g 100 mL/hr cefTRIAXone (ROCEPHIN) 2g in dextrose 5% 50mL 2,000 mg (2 g), Intravenous, EVERY 12 HOURS, First dose on 05/20/14 at 1000, Until Discontinued, Administer over 30 Minutes, Indication for (Active or Suspected): for REGISTERED NURSE SURGICAL SERVICES/Meningitis Given 05/22/2014 10:59 AM EST 2,000 mg [...] Indication for (Active or Suspected): REGISTERED NURSE SURGICAL SERVICES/Meningitis Given 05/22/2014 5:40 AM EST 500 mg [...] Indication for (Active or Suspected): REGISTERED NURSE SURGICAL SERVICES/Meningitis 0616 (Given - Provider: Linsey Mcintyre RN)[phone] [...] Dolores Patino RN)2009 (Given - Provider: Margot Moznon RN) 0831 (Given - Provider: Hedy Vazquez [...] Provider: Margot Monzon RN)0836 (Given - Provider: Hdey Vazquez, EUNICE) Continuous Medication Order 05/31/2014 06/01/2014 [...] Routine documented in this encounter Care Teams Education Sales Consultant Relationship Specialty Start Date End Date Naina Lindsey MD [address] [place] [address] PCP - General 03/19/10 08/25/16 documented as of this encounter
--- OUTSIDE RECORDS SUMMARY | 2023-12-07 15:27 | XMS_ITS | Encounter Summary ---
Author Organization [facility] [place] [address] Care Team Providers Care Broadcast Operations Engineer Name Role Phone Naina Lindsey MD Primary Care Provider [phone] Reason for Visit * Reason Comments Post-op Problem Encounter Details Date Type Department Care Team (Late st Contact Info) Description 05/20/2014 7:24 PM EST - 05/20/2014 9:57 PM EST [place] [address] Freddy Burciaga MD [facility] [place] [address] @I & D, OPEN, DEEP ABSCESS, LUMBAR, [...] Routine, Hospital Performed Vendor / contact information: [facility] Patient location post discharge: home Service requested: IV abx Start date: 05/26/2014 Responsible MD post discharge contact info: WILL Smith (Edit) Referral to Home Health - at DISCHARGE Routine, Clinic Performed Agency name and contact information: [facility] Patient location post discharge: home What services are requested: Registered Nurse, Home Health Aide, Physical Therapy, Occupational Therapy Start date: 05/26/2014 Responsible MD post discharge contact info: PCP PATIENT'S LOCATION: Tana Shelton [address] [place] [phone] (home) In discussion with the attending physician, it is certified that this patient is under their care and that they, or a Nurse Practitioner,Clinical Nurse specialist or Physician Radiologist Physician who is working directly with them, had [...] Continue with therapies OT: Continue with therapies GUEST ROOM ATTENDANT: Continue support HOME HEALTH CARE AGENCY: [facility] [employer]. PHONE: [phone] FAX: [phone] Start of care: 05/26/14 Please note that any additional orders needs or changes will need to be obtained from this patient's PCP: MD Coby BRAGG DR / [facility] [id number] All VNA agencies which cover the area of patient's residence have been reviewed, either verbally or in writing, and patient/family have chosen the home health care agency noted Emergency contact: After hours and weekends, call the [facility] generator operator straight bevel gear at and ask them to page the neurosurgery resident cutting and boning supervisor. documented in this encounter Medications at [...] (AVS) and given to the patient or contracts representative. 6) If VNA was ordered, I [...] 0.9% 50 mL Mini-Bag Plus 2 g BiaozsfigptB2H ??? baclofen 10 mg Oral Nightly ??? levonorgestrel-ethinyl estradiol 1 tablet Oral Daily ??? polyethylene glycol 17 g Oral Daily ??? sodium chloride 0.9 % 5 mL Intravenous BID ??? diaZEPam 5 mg Oral BID Continuous Infusions: ??? sodium chloride 0.9% with potassium chloride 20 mEq 50 mL/hr (06/01/14 1545) PRN Meds:acetaminophen OR acetaminophen, flu vaccine (36 [...] elevated HR this am S: Kenneth Rocco. [facility], [phone] singing ABCs and counting along with stretches [...] pt to d/chome with support and continued PT/OT/INSPECTOR PACKER GLASS CONTAINER/VNA services. Staff communication/Mobility Recommendations: Pt. Would benefit [...] timed interventions: 30 minutes for TherEx-F Pager: [phone] Mary Joe, OT Occupational Therapy Rehabilitation Department * Isra Perez RN - 06/01/2014 2:43 PM EST Patient Name: Tana Shelton Patient Age: 18 y.o. Birthdate: 1995 Admit date: 05/20/2014 Attending Physician: Jamaal Samuel MD OFFICE OF CARE MANAGEMENT Farhana Perez RN Pager: [phone] CLINICAL DISTRIBUTING CLERK PROGRESS NOTE e-DH reviewed. Report received from DEMI Sanchez. Patient continues to require acute inpatient care for the treatment of infection. Patient remains on triple abx while awaiting final cultures. [facility] and [facility] have been referred to for discharge. Met with patient's mother at bedside. Mom had multiple questions the other day regarding equipment for home. Mattress for hospital bed was ordered and delivered to home from [facility]. Tomasa Sling was ordered and is to be delivered by [facility] when it ships to [facility] warehouse. TLSO brace to be fitted by [facility]. Mom also inquired about a new motorized wheelchair. Called [facility] in [place] to see if patient would qualify, left message with Oliver- the rehab consultant for [facility] Patient will need a assessment and lot [...] 0.9% 50 mL Mini-Bag Plus 2 g BkswvoaukhhS3Z ??? baclofen 10 mg Oral Nightly ??? [...] has recovered and I can review the [facility] records and films * Natividad Esqueda, PT [...] family in a single story home in [place], [place]. Pt's mother reports that there is no stair requirement, and that she has all necessary equipment. Stairs: 0 without a rail to enter Baseline Mobility: Completely dependent for all care, home nursing VNA services 3x/week, school-based PT/OT/INSPECTOR PACKER GLASS CONTAINER, pt due to receive a communication device [...] exercise Natividad Esqueda PT, DPT 05/31/2014 Pager: [phone] Physical Therapy Inpatient Rehabilitation Department * Nathalie [...] OF CARE MANAGEMENT Farhana Perez RN Pager: [phone] CLINICAL DISTRIBUTING CLERK PROGRESS NOTE e-DH reviewed. Report received from DEMI Sanchez. Patient continues to require acute inpatient care for the treatment of infection. Patient is on triple abx. Patient needs a new mattress for her hospital bed at home. Patient's mother would like order placed with [employer]. Order pended and booking sent via sambaash Plan: CRC will continue to follow for [...] pt to d/chome with support and continued PT/OT/INSPECTOR PACKER GLASS CONTAINER/VNA services. Staff communication/Mobility Recommendations: Pt. Would benefit [...] timed interventions: 45 minutes for TherEx Pager: [phone] Mary Joe OT Occupational Therapy Rehabilitation Department [...] 0.9% 50 mL Mini-Bag Plus 2 g WszdfbfbcjdK5C ??? baclofen 10 mg Oral Nightly ??? [...] OF CARE MANAGEMENT Farhana Perez RN Pager: [phone] CLINICAL DISTRIBUTING CLERK PROGRESS NOTE e-DH reviewed. Report received from [...] further questions or concerns. Thank you. Pager: [phone] Mary Joe OTR/L Occupational Therapy Inpatient Rehabilitation [...] family in a single story home in [place], [place]. Pt's mother reports that there is no stair requirement, and that she has all necessary equipment. Stairs: 0 without a rail to enter Baseline Mobility: Completely dependent for all care, home nursing VNA services 3x/week, school-based PT/OT/INSPECTOR PACKER GLASS CONTAINER, pt due to receive a communication device [...] exercise Natividad Esqueda PT, DPT 05/29/2014 Pager: [phone] Physical Therapy Inpatient Rehabilitation Department * Wai [...] not hesitate to page us on pager [phone] with further questions or concerns. Patient discussed with Dr. Wai Crabtree. Dimple Messina MD Fellow, Infectious Disease 05/29/2014 ID Staff: Discussed with Dr. Messina. Agree with current regimen. This will be a very difficult regimen at [facility] some further discussion is [...] 0.9% 50 mL Mini-Bag Plus 2 g DsgyegfsmfuB5K ??? baclofen 10 mg Oral Nightly ??? [...] 0.9% 50 mL Mini-Bag Plus 2 g PnfjmoskuucI0K ??? baclofen 10 mg Oral Nightly ??? [...] Dressing clean and dry Wound without fluctuance CARMLELA 5cc Assessment/Plan:: 18 y.o. female s/p removal [...] CRC received call from EUNICE Hair, from [place], [place] or Asking for status as they will follow her after discharge for IV antibiotic treatment. She will need an OPAT order faxed to above agency when she is ready for discharge as well as administration teaching for home. When ready for discharge, [facility] PHONE: [phone] FAX: [phone] will also need to be updated. Referral had been made by previous CRC. Covering pager #[phone] for pager #[phone]. * Darius Maguire T - 05/27/2014 8:23 [...] 0.9% 50 mL Mini-Bag Plus 2 g MvouznxvycaP7J ??? baclofen 10 mg Oral Nightly ??? [...] Dressing clean and dry Wound without fluctuance [address] Assessment/Plan:: 18 y.o. female s/p removal [...] family in a single story home in [place], [place]. Pt's mother reports that there is no stair requirement, and that she has all necessary equipment. Stairs: 0 without a rail to enter Baseline Mobility: Completely dependent for all care, home nursing VNA services 3x/week, school-based PT/OT/INSPECTOR PACKER GLASS CONTAINER, pt due to receive a communication device [...] exercise Natividad Esqueda PT, DPT 05/26/2014 Pager: [phone] Physical Therapy Inpatient Rehabilitation Department * Freddy Burciaga MD - 05/26/2014 6:27 AM EST Neurosurgery - Inpatient Progress Note ID: Tana Shelton, 18 y.o. female s/p removal of retained hardware, washout of infection 05/20 POD 6 Interval Hx: -ALEKSANDRA -Neurologically stable Objective: Medications: Scheduled Meds: ??? cefTAZidime (FORTAZ) 2g vial attach to sodium chloride 0.9% 50 mL Mini-Bag Plus 2 g BwoqtcfgdllZ1P ??? baclofen 10 mg Oral Nightly ??? [...] questions, thank you. Natividad Esqueda PT Pager #[phone] Physical Therapy Inpatient Rehabilitation * Mary Joe, [...] pt to d/chome with support and continued PT/OT/INSPECTOR PACKER GLASS CONTAINER/VNA services. Spoke to CRC this about thoracic [...] timed interventions: 27 minutes for TherEx Pager: [phone] Mary Joe OT Occupational Therapy Rehabilitation Department [...] 0.9% 50 mL Mini-Bag Plus 2 g OylzkxxesvoI5R ??? baclofen 10 mg Oral Nightly ??? [...] of Care Management Farhana Perez RN Pager: [phone] Clinical Hand Stemmer Home IV Antibiotic Therapy Referral Note. Report received from NeuroSurgery Team that patient will require continued home IV antibiotic therapy after discharge from the hospital. Met with patient/family to discuss vendor and visiting nurse choices for home IV antibiotic therapy. Reviewed Home Infusion Vendors and Home Health Agencies that serve patient???s address and accept patient???s insurance. Home Health Agency: Patient requested referral to [facility] [employer]. PHONE: [phone] FAX: [phone]. Referrals sent via edischarge. Home Infusion Vendor: Patient requested referral to [place], [place] [phone] or Fax: . Referrals sent via edischarge. [...] 0.9% 50 mL Mini-Bag Plus 2 g FfxkmtbbuhjW4L ??? baclofen 10 mg Oral Nightly ??? [...] 0.9% 50 mL Mini-Bag Plus 2 g RalpsadqekjI6Z ??? baclofen 10 mg Oral Nightly ??? [...] PM EST Office of Care Management Clinical Hand Stemmer Patient Name: Tana Shetlon : 1995, 18 yrs Admission Date: 05/20/2014 [...] None on File (x) HEALTH /PRESCRIPTION COVERAGE: [facility] CURRENT HOME/COMMUNITY SERVICES/EQUIPMENT: DME: [facility] bed, wheelchair, tomasa lift, shower chair. Home Health Agency: [facility] PRIMARY CARE PHYSICIAN: NAINA LINDSEY MD [phone] POTENTIAL DISCHARGE NEEDS: Resume vna visits. Mother stated that she has [facility] - RN and Aide currently. Waiting to confirm this and pt needs. Might need home IV antibx. TRANSPORTATION @ D/C: family PLAN: CRC will continue to monitor progress, follow for continuity of care and assist with discharge planning while hospitalized Lesly Jesus RN Office of Care Management Clinical Hand Stemmer Covering for Farhana Chris [phone] Pager [phone] * Yandy Dasilva, PharmD - 05/22/2014 9:46 AM EST Clinical Pharmacist Note-Vanc Tana S Cat [id number] 1995 Tana Barlowrd is a 18 y.o. [...] have. Alternately, during off-hours you may call [phone] to contact a pharmacist. Yandy Dasilva PHARMBenjamin Pager [phone] * Freddy Burciaga MD - 05/22/2014 6:59 [...] Clinically does not seem to be of HEALTH WORKERS origin. Continue triple antibiotics. ID consult. Cultures [...] given to Diana RN Peds. Transferred to [place] [address] with transport services, RN + family members. Please call Anurag ICU-RN at [phone] with regards to any questions post transfer. [...] mcL Appearance UA Hazy (*) Clear Spec Leopold UA 1.026 1.002 - 1.030 Color UA [...] TANA SHELTON Ordered By: Freddy BURCIAGA MR#: [id number] LOC: OR /Sex: 1995 (18 years), Female PROCEDURE: Tissue Culture SOURCE: Back COLLECTED: 05/20/2014 20:20 FREE TEXT SOURCE: Lumbar Wound Culture STARTED: 05/20/2014 22:13 STAINS / PREPARATIONS Gram Stain Report Verified:05/20/2014 22:28 Few White Blood Cells seen No microorganisms seen. TISSUE CULTURE Result Value Ref Range Tissue Culture Value: Patient Name: TANA SHELTON Ordered By: EVITAFreddy IRENE MR#: [id number] LOC: OR /Sex: 1995 (18 years), Female [...] II initiated 0040: Report given to Jenn FISCAL SPECIALIST info reviewed/questions answered, pt ready for [...] to the planned procedure. Hand Hygiene: The statistical technician did perform hand hygiene prior to line insertion. Catheter type: PICC Lot number: [id number] Procedure Technique: Skin was prepped with chlorhexidine. [...] warm and was flushed. They called the cutting and boning supervisor neurosurgeon, who advised that they come [...] FEMORAL HEAD, BILATERAL performed by YAS OLIVER [facility] MAIN OR ??? Apply of hip casts, two legs 08/15/2010 CAST APPLICATION, HIP SPICA, BOTH LEGS performed by YAS OLIVER at [facility] MAIN OR ??? Removal deep implant 08/15/2010 REMOVAL IMPLANT, DEEP, BRUNO performed by YAS OLIVER at [facility] MAIN OR ??? Osteotomy femur shaft/supracondy 08/15/2010 ??OSTEOTOMY, FEMUR SHAFT OR SUPRACONDYLAR W/O FIXATION performed by YAS OLIVER at [facility] MAIN OR ??? Remove spinal canal catheter N/A 05/11/2014 REMOVAL OF INTRATHECAL OR EPIDURAL CATHETER performed by Jamaal Samuel MD at [facility] MAIN OR ??? Remove infusn device/pump N/A 05/11/2014 REMOVAL OF SPINE INFUSION PUMP performed by Jamaal Samuel MD at [facility] MAIN OR Medications: No current [...] stepfather Tobacco exposure:No Day care/year in school: [employer] Physical Exam: Vitals: Patient Vitals for the [...] mcL Appearance UA Hazy (*) Clear Spec Leopold UA 1.026 1.002 - 1.030 Color UA [...] at the [facility]. Mother feels that the pump has not [...] Routine, Hospital Performed Vendor / contact information: [facility] Patient location post discharge: home Service requested: IV abx Start date: 05/26/2014 Responsible MD post discharge contact info: PCP New (Edit) Referral to Home Health - at DISCHARGE Routine, Clinic Performed Agency name and contact information: [facility] Patient location post discharge: home What services are requested: Registered Nurse, Home Health Aide, Physical Therapy, Occupational Therapy Start date: 06/06/2014 Responsible MD post discharge contact info: PCP PATIENT'S LOCATION: Tana Shelton [address] [place] [phone] (home) In discussion with the attending physician, it is certified that this patient is under their care and that they, or a Nurse Practitioner,Clinical Nurse specialist or Physician Radiologist Physician who is working directly with them, had [...] Continue with therapies OT: Continue with therapies GUEST ROOM ATTENDANT: Continue support HOME HEALTH CARE AGENCY: [facility] PHONE: [phone] FAX: [phone] Start of care: 05/26/14 Please note that any additional orders needs or changes will need to be obtained from this patient's PCP: MD Coby BRAGG DR / [place] [address] All VNA agencies which cover the area of patient's residence have been reviewed, either verbally or in writing, and patient/family have chosen the home health care agency noted Emergency contact: After hours and weekends, call the [facility] generator operator straight bevel gear at and ask them to page the neurosurgery resident cutting and boning supervisor. * Plan of Care - Margot [...] yo. Supervision: Continuous; Moraima. Fannie at home ring sewer at bedside this morning ; Mom arrived [...] Health Knowledge, Opportunity for Enhanced (Adult, NICU, [place], Obstetrics, Pediatric) Goal: Identify Signs and Symptoms [...] (Interventions Implemented as Appropriate) 05/25/14 0527 05/26/14 2415 Plan of Care Review Plan of Care [...] Health Knowledge, Opportunity for Enhanced (Adult, NICU, [place], Obstetrics, Pediatric) Goal: Identify Signs and Symptoms [...] AM EST Clinical Pharmacist Note-Vancomycin Tana Shelton [id number] 1995 Tana Shelton is a 18 y.o. [...] contact a pharmacist. Elmer Tobin, [place] Pager [phone] * Plan of Care - Leana Hicks [...] Health Knowledge, Opportunity for Enhanced (Adult, NICU, [place], Obstetrics, Pediatric) Goal: Identify Signs and Symptoms [...] Outcome: Ongoing (Interventions Implemented as Appropriate) 05/27/14 8019 Infection, Risk/Actual (Adult, Obstetrics) Infection Prevention/Resolution/Control making progress toward outcome Problem: Fall/Trauma/Injury Risk (Pediatric) Goal: Identify Signs and Symptoms and Related Risk Factors Signs and symptoms and related risk factors are identified upon initiation of Human Response Clinical Practice Guideline (CPG) Outcome: Outcome (s) achieved Date Met: 05/27/14 05/22/14202905/25/14 347 Fall/Trauma/Injury Risk Personal Related Risk Factors (Fall/Trauma/Injury Risk) gait/mobility problems/weakness -- Physiological Related Risk Factors (Fall/Trauma/Injury Risk) -- developmental disability;incontinence;neurologic alteration;neuromuscular alteration Treatment Related Related Risk Factors (Fall/Trauma/Injury Risk) -- invasive/noninvasive equipment;medication;bed rest Signs and Symptoms (Fall/Trauma/Injury Risk) -- presence of risk factors Problem: Health Knowledge, Opportunity for Enhanced (Adult, NICU, [place], Obstetrics, Pediatric) Goal: Identify Signs and Symptoms [...] Operative Note Patient Name: Tana Shelton : [id number] MR#: [id number] Case Date: 05/26/2014 Surgeon: Surgeon(s) and Role: [...] (Interventions Implemented as Appropriate) 05/22/14 0634 05/24/14 7884 Discharge Needs Assessment Concerns to be Addressed [...] Health Knowledge, Opportunity for Enhanced (Adult, NICU, [place], Obstetrics, Pediatric) Goal: Knowledgeable about Health Subject/Topic [...] bedside;lighting adjusted for task/safety;low bed;environmental modification 05/25/14 0519 Musculoskeletal Interventions Activity/Level of Assistance -- Self-Care [...] Outcome: Ongoing (Interventions Implemented as Appropriate) 05/24/14 1103 Plan of Care Review Plan of Care [...] BILATERAL performed by YAS OLIVER [facility] OR ??? Apply of hip casts, two legs 08/15/2010 CAST APPLICATION, HIP SPICA, BOTH LEGS performed by YAS OLIVER at [facility] OR ??? Removal deep implant 08/15/2010 REMOVAL IMPLANT, DEEP, BRUNO performed by YAS OLIVER at [facility] OR ??? Osteotomy femur shaft/supracondy 08/15/2010 ??OSTEOTOMY, FEMUR SHAFT OR SUPRACONDYLAR W/O FIXATION performed by YAS OLIVER at [facility] OR ??? Remove spinal canal catheter N/A 05/11/2014 REMOVAL OF INTRATHECAL OR EPIDURAL CATHETER performed by Jamaal Samuel MD at [facility] OR ??? Remove infusn device/pump N/A 05/11/2014 REMOVAL OF SPINE INFUSION PUMP performed by Jamaal Samuel MD at [facility] OR ? ? I&d, post spine, lumb/sacr/lumbosac N/A 05/20/2014 @I & D, OPEN, DEEP ABSCESS, LUMBAR, SACRAL, LUMBOSACRAL performed by Freddy Burciaga MD at [facility] OR ??? Repr, dural/csf leak, not req laminectomy N/A 05/20/2014 @REPAIR DURAL\CSF LEAK,NOT REQUIRING LAMINECTOMY performed by Freddy Burciaga MD at [facility] OR Social and Developmental History: Patient lives with her family in a single level home in [place], [place]. Pt's mother reports that their [...] has an older sister who lives in [place] and 3 younger brothers. She likes to [...] RN and mom assist. Feeding: per mom: [employer] [employer] assist for use of utensils; not observed [...] to d/c home with support and continued PT/OT/INSPECTOR PACKER GLASS CONTAINER/VNA services. Spoke with CRC about consultfor new [...] you for this occupational therapy consult. Pager: [phone] Mary Joe OT 05/24/2014 Occupational Therapy Rehabilitation [...] BILATERAL performed by YAS OLIVER [facility] OR ??? Apply of hip casts, two legs 08/15/2010 CAST APPLICATION, HIP SPICA, BOTH LEGS performed by YAS OLIVER at [facility] OR ??? Removal deep implant 08/15/2010 REMOVAL IMPLANT, DEEP, BRUNO performed by YAS OLIVER at [facility] OR ??? Osteotomy femur shaft/supracondy 08/15/2010 ??OSTEOTOMY, FEMUR SHAFT OR SUPRACONDYLAR W/O FIXATION performed by YAS OLIVER at [facility] OR ??? Remove spinal canal catheter N/A 05/11/2014 REMOVAL OF INTRATHECAL OR EPIDURAL CATHETER performed by Jamaal Samuel MD at [facility] OR ??? Remove infusn device/pump N/A 05/11/2014 REMOVAL OF SPINE INFUSION PUMP performed by Jamaal Samuel MD at [facility] OR ? ? I&d, post spine, lumb/sacr/lumbosac N/A 05/20/2014 @I & D, OPEN, DEEP ABSCESS, LUMBAR, SACRAL, LUMBOSACRAL performed by Freddy Burciaga MD at [facility] OR ??? Repr, dural/csf leak, not req laminectomy N/A 05/20/2014 @REPAIR DURAL\CSF LEAK,NOT REQUIRING LAMINECTOMY performed by Freddy Burciaga MD at [facility] MAIN OR Social History: Patient lives with her family in a single story home in [place], [place]. Pt's mother reports that there is no stair requirement, and that she has all necessary equipment. Stairs: 0 without a rail to enter Baseline Mobility: Completely dependent for all care, home nursing VNA services 3x/week, school-based PT/OT/INSPECTOR PACKER GLASS CONTAINER, pt due to receive a communication device [...] minutes Natividad Esqueda PT, DPT 05/24/2014 Pager: [phone] Physical Therapy Inpatient Rehabilitation Department * Plan [...] based on it's ability to penetrate the HEALTH WORKERS. We need todiscuss whether to pursue an [...] to 40 mEq. One dose of IV nbqviwlau25 mEq administered per orders. Re-check of K [...] and Lipase were normal. Per her daycare charge entry clerk, may be related to administration of oxycodone as this has been issue in the past. Cannotexclude component of baclofen withdrawal, but less likely. No current concern for acute HEALTH WORKERS process. - Serial exams. Ensure daily BMs [...] although it may not have the best HEALTH WORKERS penetration unless meninges are actually inflamed. - [...] fluid only. MD called for antiemetic and NE tylenol. Zofran given when order receivedand med [...] PREVENTION: Assistance: Full assist, mom at bedside. restorative rehab aide will be coming in today to [...] Operative Note Patient Name: Tana Shelton : [id number] MR#: [id number] Case Date: 05/20/2014 - 05/21/2014 Surgeon: Surgeon(s) [...] 05/21/2014 * Plan of Care - Dana Fsoter RN - 05/21/2014 5:50 AM EST Problem: [...] FEMORAL HEAD, BILATERAL performed by YAS OLIVER [facility] MAIN OR ??? Apply of hip casts, two legs 08/15/2010 CAST APPLICATION, HIP SPICA, BOTH LEGS performed by YAS OLIVER at [facility] MAIN OR ??? Removal deep implant 08/15/2010 REMOVAL IMPLANT, DEEP, BRUNO performed by YAS OLIVER at [facility] MAIN OR ??? Osteotomy femur shaft/supracondy 08/15/2010 ??OSTEOTOMY, FEMUR SHAFT OR SUPRACONDYLAR W/O FIXATION performed by YAS OLIVER at [facility] MAIN OR ??? Remove spinal canal catheter N/A 05/11/2014 REMOVAL OF INTRATHECAL OR EPIDURAL CATHETER performed by Jamaal Samuel MD at [facility] MAIN OR ??? Remove infusn device/pump N/A 05/11/2014 REMOVAL OF SPINE INFUSION PUMP performed by Jamaal Samuel MD at [facility] MAIN OR No family history [...] mcL Appearance UA Hazy (*) Clear Spec Leopold UA 1.026 1.002 - 1.030 Color UA [...] TANA SHELTON Ordered By: Freddy BURCIAGA MR#: [id number] LOC: OR /Sex: 1995 (18 years), Female PROCEDURE: Tissue Culture SOURCE: Back COLLECTED: 05/20/2014 20:20 FREE TEXT SOURCE: Lumbar Wound Culture STARTED: 05/20/2014 22:13 STAINS / PREPARATIONS Gram Stain Report Verified:05/20/2014 22:28 Few White Blood Cells seen No microorganisms seen. TISSUE CULTURE Result Value Range Tissue Culture Value: Patient Name: TANA SHELTON Ordered By: Freddy BURCIAGA MR#: [id number] LOC: OR /Sex: 1995 (18 years), Female [...] PM EST Office [place] [address] Hollie Ambriz MD [facility] [place] [address] Pending Results Name Type Priority Associated Diagnoses [...] REQUIRING LAMINECTOMY Routine 05/20/2014 10:22 PM EST PR INTERN CULTURE Routine 5 10:01 PM EST ANAEROBIC [...] MD HEMATOLOGY ORDERABLE S Performing Organization Address City/[facility]/ZIP Co de Phone Number CERALIN MILLENNIUM [...] Metabolic Panel (non-fasting) (06/02/2014 5:55 AM EST) [facility] Glucose 75 60 - 199 mg/dL [...] the following links into your internet browser. [email or web address] Blood specimen (specimen) 06/02/2014 5:55 AM EST 06/02/2014 6:09 AM EST Narrative Resulting Agency Comment Spec In Lab S Alek Burciaga MD CHEMISTRY ORDERABLES [facility] * (ABNORMAL) Sedimentation rate (06/01/2014 12:40 PM EST) Sedimentation Rate Automated 46(H) 0 - 20 mm/hr LINDA BASHIR Blood specimen (specimen) Venous Draw / Unknown 06/01/2014 12:40 PM EST 06/01/2014 12:48 PM EST Narrative Resulting Agency Comment Spec In Lab S Alek Burciaga MD HEMATOLOGY ORDERABLE S Performing Organization Address [facility] Phone Number [facility] * High Sensitivity CRP (06/01/2014 12:40 PM EST) Pathologist [facility] C-Reactive Protein High Sensitivity 15.4 mg/L [facility] Comment: Interpretations: 1) For accurate cardiac [...] CHEMISTRY ORDERABLES Performing Organization Address [facility] Phone Number [facility] * Differential, Automated (06/01/2014 12:40 PM EST) Neutrophil % 66.8 % [facility] Neutrophil Absolute 4.96 1.50 - 6.30 [...] the following links into your internet browser. [email or web address] Blood specimen (specimen) 06/01/2014 12:40 PM EST [...] ORDERABLE S Performing Organization Address [facility]/ZIP Co de Phone Number CERNER MILLENNIUM [...] the following links into your internet browser. [email or web address] Blood specimen (specimen) 05/30/2014 6:50 AM EST [...] the following links into your internet browser. [email or web address] Blood specimen (specimen) 05/29/2014 7:13 AM EST [...] S Alek Burciaga MD CHEMISTRY ORDERABLES [facility] * (ABNORMAL) Basic Metabolic Panel (non-fasting) (05/28/2014 9:00 AM EST) [facility] Glucose 121 60 - 199 mg/dL [...] the following links into your internet browser. [email or web address] Blood specimen (specimen) 05/28/2014 9:00 AM EST [...] * (ABNORMAL) Hemogram (05/27/2014 5:30 AM EST) [facility] White Blood Cell 6.8 4.0 - [...] Burciaga MD HEMATOLOGY ORDERABLE S [facility] * (ABNORMAL) Basic Metabolic Panel (non-fasting) (05/27/2014 5:30 AM EST) [facility] Glucose 81 60 - 199 [...] the following links into your internet browser. [email or web address] Blood specimen (specimen) 05/27/2014 5:30 AM EST 05/27/2014 5:39 AM EST Narrative Resulting Agency Comment Spec In Lab Freddy Burciaga MD CHEMISTRY ORDERABLES Performing Organization Address City/State/[facility] Co ks Phone Number [facility] * Anaerobic Culture (05/26/2014 5:30 PM EST) Anaerobic Culture ? Patient Name: TANA SHELTON ? Ordered By: Freddy BURCIAGA ? MR#: [id number] ?LOC: ??PA ? /Sex: ??1995 (18 years), ? Female ? PROCEDURE: Anaerobic Culture ?SOURCE: Back ? COLLECTED: 05/26/2014 17:30 ?FREE TEXT SOURCE: Lumbar ? STARTED: 05/26/2014 17:41 ? FINAL REPORT ? Final Report ? Verified:2014 12:55 ? No anaerobic organisms isolated ? PRELIMINARY REPORT ? Preliminary Report ? Verified:2014 12:08 ? No anaerobic organisms isolated to date ? [facility] Structure of back of trunk (body structure) 05/26/2014 5:30 PM EST 05/26/2014 5:41 PM EST Comment:LUMBAR Narrative Resulting Agency Comment Spec In Lab Freddy Burciaga MD MICROBIOLOGY - GENER AL ORDERABLES [facility] * Tissue culture (05/26/2014 5:30 PM EST) Tissue Culture ? Patient Name: TANA SHELTON ? Ordered By: Freddy BURCIAGA ? MR#: [id number] ?LOC: ??PA ? /Sex: ??1995 (18 years), [...] S ? Patient: TANA SHELTON ? MR#: [id number] ? S=Susceptible ??I=Intermediate ??R=Resistant ??NA=Not Applicable ? DDS=Dose dependent-suscept ible ??NS=Non-suscepti ble ? [facility] Structure of back of trunk (body structure) 05/26/2014 5:30 PM EST 05/26/2014 5:41 PM EST Comment:LUMBAR Narrative Resulting Agency Comment Spec In Lab Freddy Burciaga MD MICROBIOLOGY - GENER AL ORDERABLES [facility] * Anaerobic Culture (05/26/2014 5:30 PM EST) Anaerobic Culture ? Patient Name: TANA SHELTON ? Ordered By: Freddy BURCIAGA ? MR#: [id number] ?LOC: ??PA ? /Sex: ??1995 (18 years), [...] ? Ordered By: Freddy BURCIAGA ? MR#: [id number] ?LOC: ??PA ? /Sex: ??1995 (18 years), [...] plates. ? Patient: TANA SHELTON ? MR#: [id number] ? SUSCEPTIBILITY RESULTS ? Coagulase negative Staphylococcus [...] (1) ? Gentamicin is not appropriate for Hall-therapy. ? (2) ? Penicillin resistant, Nafcillin susceptible [...] MD MICROBIOLOGY - GENER AL ORDERABLES [facility] * Anaerobic Culture (05/26/2014 5:30 PM EST) Anaerobic Culture ? Patient Name: TANA SHELTON ? Ordered By: Freddy BURCIAGA ? MR#: [id number] ?LOC: ??PA ? /Sex: ??1995 (18 years), [...] ? Ordered By: Freddy BURCIAGA ? MR#: [id number] ?LOC: ??PA ? /Sex: ??1995 (18 years), [...] Screen Interp Negative CERNER MILLENNIUM Expires at [id number] on: [id number] CERNER THOMENNIUM Blood specimen (specimen) 05/26/2014 12:40 PM EST 05/26/2014 12:59 PM EST Narrative Resulting Agency Comment Spec In Lab S Alek Burciaga MD BLOOD BANK LAB ORDER MYRANDA LINDA TOMASVideobot * ABO/Rh Typing (05/26/2014 12:40 PM EST) [...] Alek Burciaga MD HEMATOLOGY ORDERABLE S [facility] M[facility] * (ABNORMAL) Basic Metabolic Panel (non-fasting) (05/26/2014 4:15 AM EST) [facility] Glucose 88 60 - 199 mg/dL [...] the following links into your internet browser. [email or web address] Blood specimen (specimen) 05/26/2014 4:15 AM EST 05/26/2014 4:35 AM EST Narrative Resulting Agency Comment Spec In Lab S Alek Burciaga MD CHEMISTRY ORDERABLES LINDA BASHIR * Place PICC Line: Contact Vascular Access Page [phone] (05/25/2014 4:01 PM EST) Narrative [place] [...] to the planned procedure. Hand Hygiene: The statistical technician did perform hand hygiene prior to line insertion. Catheter type: PICC Lot number: [id number] Procedure Technique: Skin was prepped with chlorhexidine. [...] focal. COMPARISON: Scoliosis radiographs from 12/16/2011 FINDINGS: Livestock Laborer views demonstrate severe rightward scoliotic deformity centered [...] No gross collections in the cervical spine. Livestock Laborer coronal image 8 of series 8 demonstrates [...] inf,focal. COMPARISON: Scoliosis radiographs from 12/16/2011 FINDINGS: Livestock Laborer views demonstrate severe rightward scoliotic deformity centered [...] abnormalities. No grosscollections in the cervical spine. Livestock Laborer coronal image 8 of series 8 demonstrates [...] Narrative 05/25/2014 4:10 PM EST See accession #[id number] for dictation of this study. This report was reviewed by Andrade Rebolledo MD at 05/25/2014 4:05 PM Film and interpretation reviewed by the attending Procedure Note Andrade Roth MD - 05/25/2014 See accession #[id number] for dictation of this study. This report [...] Metabolic Panel (non-fasting) (05/25/2014 5:00 AM EST) [facility] Glucose 87 60 - 199 mg/dL [...] the following links into your internet browser. [email or web address] Blood specimen (specimen) 05/25/2014 5:00 AM EST [...] 8 - 18 mg/dL CERNER MILLENNIUM Comment:result rechecked-[facility] Creatinine 0.39(L) 0.70 - 1.20 mg/dL [...] the following links into your internet browser. [email or web address] Blood specimen (specimen) 05/24/2014 12:42 PM EST 05/24/2014 12:42 PM EST Narrative Resulting Agency Comment Spec In Lab S Alek Burciaga MD CHEMISTRY ORDERABLES Performing Organization Address [facility] Co de Phone Number LINDA [...] CHEMISTRY ORDERABLES Performing Organization Address [facility] de Phone Number LINDA TOMASENNIUM * (ABNORMAL) [...] CHEMISTRY ORDERABLES Performing Organization Address [facility] Co de Phone Number CERALIN [...] CHEMISTRY ORDERABLES Performing Organization Address [facility] Phone Number CERNER MILLENNIUM * (ABNORMAL) Phosphorus (05/22/2014 12:45 PM EST) Phosphorus 2.2(L) 2.5 - 4.5 mg/dL CERNER MILLENNIUM Blood specimen (specimen) Venous Draw / Unknown 05/22/2014 12:45 PM EST 05/22/2014 1:03 PM EST Narrative Resulting Agency Comment Spec In Lab Lucho Smith MD CHEMISTRY ORDERABLES Performing Organization Address [facility] de Phone Number CERNER MILLENNIUM * Magnesium (05/22/2014 12:45 PM EST) Magnesium 0.69 0.69 - 1.07 mmol/L CERNER MILLENNIUM Blood specimen (specimen) Venous Draw / Unknown 05/22/2014 12:45 PM EST 05/22/2014 1:03 PM EST Narrative Resulting Agency Comment Spec In Lab Lucho Smith MD CHEMISTRY ORDERABLES Performing Organization Address [facility] Co de Phone Number CERNER MILLENNIUM * Lipase (05/22/2014 12:45 PM EST) Lipase 44 0 - 60 unit/L CERNER MILLENNIUM Blood specimen (specimen) 05/22/2014 12:45 PM EST 05/22/2014 1:03 PM EST Narrative Resulting Agency Comment Spec In Lab Lucho Smith MD CHEMISTRY ORDERABLES Performing Organization Address [facility] de Phone Number CERNER MILLENNIUM * Amylase (05/22/2014 12:45 PM EST) Amylase 89 28 - 100 unit/L CERNER MILLENNIUM Blood specimen (specimen) 05/22/2014 12:45 PM EST 05/22/2014 1:03 PM EST Narrative Resulting Agency Comment Spec In Lab Lucho Smith MD CHEMISTRY ORDERABLES Performing Organization Address [facility] de Phone Number CERNER MILLENNIUM * [...] the following links into your internet browser. [email or web address] Blood specimen (specimen) 05/22/2014 12:45 PM EST [...] ORDERABLE S Performing Organization Address [facility] Co de Phone Number LINDA [...] CHEMISTRY ORDERABLES Performing Organization Address [facility] Co de Phone Number [facility] * (ABNORMAL) Basic Metabolic Panel (non-fasting) (05/22/2014 6:10 AM EST) Glucose 86 60 - 199 mg/dL [facility] MILLENNIUM Comment:Diabetes: >=200 mg/d L plus [...] the following links into your internet browser. [email or web address] Blood specimen (specimen) 05/22/2014 6:10 AM EST [...] the following links into your internet browser. [email or web address] Blood specimen (specimen) 05/21/2014 4:23 AM EST 05/21/2014 4:38 AM EST Narrative Resulting Agency Comment Spec In Lab Freddy Burciaga MD CHEMISTRY ORDERABLES Performing Organization Address City/State/[facility] Co ks Phone Number [facility] * Animal Stunner Culture (05/20/2014 10:01 PM EST) Animal Stunner Culture ? Patient Name: TANA SHELTON ? Ordered By: Freddy BURCIAGA ? MR#: [id number] ?LOC: ??[place] ? /Sex: ??1995 (18 years), ? Female ? PROCEDURE: Animal Stunner Culture ?SOURCE: Other ? COLLECTED: 05/20/2014 22:01 [...] ? Ordered By: Freddy BURCIAGA ? MR#: [id number] ?LOC: ??[place] ? /Sex: ??1995 (18 years), [...] ? Ordered By: Freddy BURCIAGA ? MR#: [id number] ?LOC: ??[place] ? /Sex: ??1995 (18 years), [...] ? S ? Patient: CAT[place]NA ? MR#: [id number] ? S=Susceptible ??I=Intermediate ??R=Resistant ??NA=Not Applicable ? [...] ? Ordered By: Freddy BURCIAGA ? MR#: [id number] ?LOC: ??[place] ? /Sex: ??1995 (18 years), [...] ? Ordered By: Freddy BURCIAGA ? MR#: [id number] ?LOC: ??[place] ? /Sex: ??1995 (18 years), [...] ? Ordered By: BELKIS LOUIE ? MR#: [id number] ?LOC: ??[place] ? /Sex: ??1995 (18 years), [...] Urine Dipstick Hazy(A) Clear CERNER MILLENNIUM Specific [place]opold Urine Automated 1.026 1.002 - 1.030 CERNER [...] In Lab Belkis Louie MD URINE ORDERABLES [facility] * L-Lactate2 Whole Blood (05/20/2014 6:17 PM EST) Pathologist [facility] Lactate WB 1.6 0.5 - 2.2 mmol/L [facility] Blood specimen (specimen) 05/20/2014 6:17 PM EST 05/20/2014 6:17 PM EST Belkis Louie MD CHEMISTRY ORDERABLES [facility] * Blood culture (05/20/2014 6:00 PM EST) Blood Culture ? Patient Name: TANA SHELTON ? Ordered By: BELKIS LOUIE ? MR#: [id number] ?LOC: ??[place] ? /Sex: ??1995 (18 years), [...] MD HEMATOLOGY ORDERABLE S Performing Organization Address City/[facility]/ZIP Co de Phone Number CERALIN TOMASENNIUM [...] ? Ordered By: BELKIS LOUIE ? MR#: [id number] ?LOC: ??[place] ? /Sex: ??1995 (18 years), [...] EST) Glucose 81 60 - 199 mg/dL [facility] Comment:Diabetes: >=200 mg/d L plus symptoms Blood specimen (specimen) 05/20/2014 5:15 PM EST 05/20/2014 5:31 PM EST Narrative Resulting Agency Comment Spec In Lab Belkis Louie MD CHEMISTRY ORDERABLES Performing Organization Address [facility] Co de Phone Number [facility] * (ABNORMAL) Creatinine (05/20/2014 5:15 PM EST) Creatinine 0.37(L) 0.70 - 1.20 mg/dL [facility] Comment: Please note that the pediatric reference intervals supplied above were [place] [facility] [place] Results from pediatric patients should be interpreted in conjunction to the patient's age, height and muscle mass. Est Glomerular Filtration Rate >60 >=60 [facility] Comment: This estimated GFR (eGFR) value [...] the following links into your internet browser. [email or web address] Blood specimen (specimen) 05/20/2014 5:15 PM EST 05/20/2014 5:31 PM EST Narrative Resulting Agency Comment Spec In Lab Belkis Louie MD CHEMISTRY ORDERABLES Performing Organization Address City/[facility] Co de Phone Number LINDA BASHIR * BUN (05/20/2014 5:15 PM EST) Blood Urea Nitrogen 9 8 - 18 mg/dL [facility] Blood specimen (specimen) 05/20/2014 5:15 PM [...] Louie MD CHEMISTRY ORDERABLES Performing Organization Address City/[facility]/ZIP Co de Phone Number LINDA BASHIR [...] Nely Boss, Indication for (Active or Suspected): HEALTH WORKERS/Meningitis 0616 (Given - Provider: Linsey Mcintyre RN)[id number] [...] Routine documented in this encounter Care Teams Broadcast Operations Engineer Relationship Specialty Start Date End Date Naina Lindsey MD [address] [place] [address] [place] [address] PCP - General 03/19/10 08/25/16 documented as of this encounter
--- OUTSIDE RECORDS SUMMARY | 2023-12-07 15:27 | XMS_ITS | Encounter Summary ---
Author Organization [facility] [place] [address] Care Team Providers Care Plumber Maintenance Name Role Phone Naina Lindsey MD Primary Care Provider [phone] Encounter Details Date Type Department Care Team (Late st Contact Info) Description 05/23/2014 External Results [place] [phone] Unknown None Social History Tobacco Use Types [...] PM EST Office [place] [phone] Hollie Ambriz MD [facility] [place] [address] documented as of this encounter Procedures Procedure Name Priority Date/Time Associated Diagnosis Comments HEAVY EQUIPMENT SERVICE MANAGER Routine 05/21/2014 documented in this encounter 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
--- OUTSIDE RECORDS SUMMARY | 2023-12-07 15:27 | XMS_ITS | Encounter Summary ---
Author Organization [facility] [place] [address] Care Team Providers Care Maintenance Plumber Name Role Phone Naina Lindsey MD Primary Care Provider [phone] Reason for Visit * Reason Comments Post-op Problem Encounter Details Date Type Department Care Team (Late st Contact Info) Description 05/26/2014 4:30 PM EST - 05/26/2014 7:03 PM EST [place] [address] Freddy Burciaga MD [facility] [place] [address] @I & D, OPEN, DEEP ABSCESS, LUMBAR, [...] Routine, Hospital Performed Vendor / contact information: [facility] Patient location post discharge: home Service requested: IV abx Start date: 05/26/2014 Responsible MD post discharge contact info: WILL Smith (Edit) Referral to Home Health - at DISCHARGE Routine, Clinic Performed Agency name and contact information: [facility] Patient location post discharge: home What services are requested: Registered Nurse, Home Health Aide, Physical Therapy, Occupational Therapy Start date: 05/26/2014 Responsible MD post discharge contact info: PCP PATIENT'S LOCATION: Tana Shelton [address] [place] [phone] (home) In discussion with the attending physician, it is certified that this patient is under their care and that they, or a Nurse Practitioner,Clinical Nurse specialist or Physician Housekeeper Supervisor who is working directly with them, [...] Continue with therapies OT: Continue with therapies FITTER TACKER: Continue support HOME HEALTH CARE AGENCY: [facility] [employer] PHONE: [phone] FAX: [phone] Start of care: 05/26/14 Please note that any additional orders needs or changes will need to be obtained from this patient's PCP: MD Coby BRAGG DR / [facility] [id number] All VNA agencies which cover the area of patient's residence have been reviewed, either verbally or in writing, and patient/family have chosen the home health care agency noted Emergency contact: After hours and weekends, call the [facility] barratte operator at and ask them to page the neurosurgery resident irrigation supervisor. documented in this encounter Medications at [...] (AVS) and given to the patient or outbound call center representative. 6) If VNA was [...] 0.9% 50 mL Mini-Bag Plus 2 g KtesjdwbgscT9G ??? baclofen 10 mg Oral Nightly ??? levonorgestrel-ethinyl estradiol 1 tablet Oral Daily ??? polyethylene glycol 17 g Oral Daily ??? sodium chloride 0.9 % 5 mL Intravenous BID ??? diaZEPam 5 mg Oral BID Continuous Infusions: ??? sodium chloride 0.9% with potassium chloride 20 mEq 50 mL/hr (06/01/14 8315) PRN Meds:acetaminophen OR acetaminophen, flu vaccine (36 [...] of elevated HR this am S: Kenneth Rococ. [facility], [id number] singing ABCs and counting along with stretches [...] pt to d/chome with support and continued PT/OT/MANAGING MANAGER/VNA services. Staff communication/Mobility Recommendations: Pt. Would [...] timed interventions: 30 minutes for TherEx-F Pager: [phone] Mary Joe, OT Occupational Therapy Rehabilitation Department * Isra Perez RN - 06/01/2014 2:43 PM EST Patient Name: Tana Shelton Patient Age: 18 y.o. Birthdate: 1995 Admit date: 05/20/2014 Attending Physician: Jamaal Samuel MD OFFICE OF CARE MANAGEMENT Farhana Perez RN Pager: [phone] CLINICAL DEPARTMENT OPERATIONS MANAGER PROGRESS NOTE e-DH reviewed. Report received from DEMI Sanchez. Patient continues to require acute inpatient care for the treatment of infection. Patient remains on triple abx while awaiting final cultures. [facility] and [facility] have been referred to for discharge. Met with patient's mother at bedside. Mom had multiple questions the other day regarding equipment for home. Mattress for hospital bed was ordered and delivered to home from [facility]. Tomasa Sling was ordered and is to be delivered by [facility] when it ships to [facility] warehouse. TLSO brace to be fitted by [facility]. Mom also inquired about a new motorized wheelchair. Called [facility] in [place] to see if patient would qualify, left message with Oliver- the rehab aide for [facility]. Patient will need a assessment and [...] 0.9% 50 mL Mini-Bag Plus 2 g IrhqntaeugbT5D ??? baclofen 10 mg Oral Nightly ??? [...] has recovered and I can review the [facility] records and films * Natividad [...] family in a single story home in [place], [place]. Pt's mother reports that there is no stair requirement, and that she has all necessary equipment. Stairs: 0 without a rail to enter Baseline Mobility: Completely dependent for all care, home nursing VNA services 3x/week, school-based PT/OT/MANAGING MANAGER, pt due to receive a communication [...] than in previous treatment session, counting withthis speech writer during stretching Objective: Patient seen for [...] internal rotators, adductors ?? Pt helped this speech writer with opposite UE when performing stretching [...] session, playing with toys, playfully tricking this speech writer when counting during passive stretching, and [...] exercise Natividad Esqueda PT, DPT 05/31/2014 Pager: [phone] Physical Therapy Inpatient Rehabilitation Department * Nathalie [...] OF CARE MANAGEMENT Farhana Perez RN Pager: [phone] CLINICAL DEPARTMENT OPERATIONS MANAGER PROGRESS NOTE e-DH reviewed. Report received from DEMI Sanchez. Patient continues to require acute inpatient care for the treatment of infection. Patient is on triple abx. Patient needs a new mattress for her hospital bed at home. Patient's mother would like order placed with [employer]. Order pended and booking sent via [employer] Plan: CRC will continue to follow for [...] pt to d/chome with support and continued PT/OT/MANAGING MANAGER/VNA services. Staff communication/Mobility Recommendations: Pt. Would [...] timed interventions: 45 minutes for TherEx Pager: [phone] Mary Joe OT Occupational Therapy Rehabilitation Department [...] 0.9% 50 mL Mini-Bag Plus 2 g RdfljjkusflQ1A ??? baclofen 10 mg Oral Nightly ??? [...] OF CARE MANAGEMENT Farhana Perez RN Pager: [phone] CLINICAL DEPARTMENT OPERATIONS MANAGER PROGRESS NOTE e-DH reviewed. Report received [...] as pt becomes available. Please contact this speech writer with any further questions or concerns. Thank you. Pager: [phone] Mary Joe OTR/L Occupational Therapy Inpatient Rehabilitation [...] family in a single story home in [place], [place]. Pt's mother reports that there is no stair requirement, and that she has all necessary equipment. Stairs: 0 without a rail to enter Baseline Mobility: Completely dependent for all care, home nursing VNA services 3x/week, school-based PT/OT/MANAGING MANAGER, pt due to receive a communication [...] pt very smiley today, counting with this speech writer during stretching, showing off her favorite [...] exercise Natividad Esqueda PT, DPT 05/29/2014 Pager: [phone] Physical Therapy Inpatient Rehabilitation Department * Wai [...] not hesitate to page us on pager [phone] with further questions or concerns. Patient discussed with Dr. Wai Crabtree. Dimple Messina MD Fellow, Infectious Disease 05/29/2014 ID Staff: Discussed with Dr. Messina. Agree with current regimen. This will be a very difficult regimen at [facility] some further discussion is needed. We are [...] 0.9% 50 mL Mini-Bag Plus 2 g NfkqluhbkkyY7T ??? baclofen 10 mg Oral Nightly ??? [...] 0.9% 50 mL Mini-Bag Plus 2 g BqhlwpoqzdrJ3J ??? baclofen 10 mg Oral Nightly ??? [...] CRC received call from EUNICE Hair, from [place], [place] or Asking for status as they will follow her after discharge for IV antibiotic treatment. She will need an OPAT order faxed to above agency when she is ready for discharge as well as administration teaching for home. When ready for discharge, [facility] [employer] PHONE: [phone] FAX: [phone] will also need to be updated. Referral had been made by previous CRC. Covering pager #[phone] for pager #[phone]. * Darius Maguire T - 05/27/2014 8:23 [...] 0.9% 50 mL Mini-Bag Plus 2 g JytpamhjazjE4G ??? baclofen 10 mg Oral Nightly ??? [...] clean and dry Wound without fluctuance [address] Assessment/Plan:: 18 y.o. female s/p removal [...] family in a single story home in [place], [place]. Pt's mother reports that there is no stair requirement, and that she has all necessary equipment. Stairs: 0 without a rail to enter Baseline Mobility: Completely dependent for all care, home nursing VNA services 3x/week, school-based PT/OT/MANAGING MANAGER, pt due to receive a communication [...] exercise Natividad Esqueda PT, DPT 05/26/2014 Pager: [phone] Physical Therapy Inpatient Rehabilitation Department * Freddy Burciaga MD - 05/26/2014 6:27 AM EST Neurosurgery - Inpatient Progress Note ID: Tana Shelton, 18 y.o. female s/p removal of retained hardware, washout of infection 05/20 POD 6 Interval Hx: -ALEKSANDRA -Neurologically stable Objective: Medications: Scheduled Meds: ??? cefTAZidime (FORTAZ) 2g vial attach to sodium chloride 0.9% 50 mL Mini-Bag Plus 2 g XcinucxgythV5P ??? baclofen 10 mg Oral Nightly ??? [...] (05/26) or when appropriate. Please page this speech writer if you have any questions, thank you. Natividad Esqueda PT Pager #[phone] Physical Therapy Inpatient Rehabilitation * Mary Joe, [...] pt to d/chome with support and continued PT/OT/MANAGING MANAGER/VNA services. Spoke to CRC this about [...] timed interventions: 27 minutes for TherEx Pager: [phone] Mary Joe OT Occupational Therapy Rehabilitation Department [...] 0.9% 50 mL Mini-Bag Plus 2 g SiesuwzhcngQ8L ??? baclofen 10 mg Oral Nightly ??? [...] of Care Management Farhana Perez RN Pager: [phone] Clinical Highballer Home IV Antibiotic Therapy Referral Note. Report received from NeuroSurgery Team that patient will require continued home IV antibiotic therapy after discharge from the hospital. Met with patient/family to discuss vendor and visiting nurse choices for home IV antibiotic therapy. Reviewed Home Infusion Vendors and Home Health Agencies that serve patient???s address and accept patient???s insurance. Home Health Agency: Patient requested referral to [facility] [employer] PHONE: [phone] FAX: [phone]. Referrals sent via [employer]. Home Infusion Vendor: Patient requested referral to [place], [place] Tel: or Fax: . Referrals sent [...] 0.9% 50 mL Mini-Bag Plus 2 g YjvmolsrptcT4C ??? baclofen 10 mg Oral Nightly ??? [...] 0.9% 50 mL Mini-Bag Plus 2 g UrhumxparauI5L ??? baclofen 10 mg Oral Nightly ??? [...] PM EST Office of Care Management Clinical Highballer Patient Name: Tana Shelton : 1995, 18 [...] None on File (x) HEALTH /PRESCRIPTION COVERAGE: [place] [facility] CURRENT HOME/COMMUNITY SERVICES/EQUIPMENT: DME: [facility] bed, wheelchair, tomasa lift, shower chair. Home Health Agency: [facility] PRIMARY CARE PHYSICIAN: NAINA LINDSEY MD [phone] POTENTIAL DISCHARGE NEEDS: Resume vna visits. Mother stated that she has [facility] - RN and Aide currently. Waiting to confirm this and pt needs. Might need home IV antibx. TRANSPORTATION @ D/C: family PLAN: CRC will continue to monitor progress, follow for continuity of care and assist with discharge planning while hospitalized Lesly Jesus RN Office of Care Management Clinical Highballer Covering for Farhana Chris [phone] Pager [phone] * Yandy Dasilva, PharmD - 05/22/2014 9:46 AM EST Clinical Pharmacist Note-Vanc Tana S Dirk [id number] 1995 Tana Barlowrd is a 18 y.o. [...] have. Alternately, during off-hours you may call [phone] to contact a pharmacist. Yandy Dasilva PHARMBenjamin Pager [phone] * Freddy Burciaga MD - 05/22/2014 6:59 [...] Clinically does not seem to be of COLD ROLL INSPECTOR origin. Continue triple antibiotics. ID consult. Cultures [...] given to Diana RN Peds. Transferred to [place] [id number] with transport services, RN + family members. Please call Anurag ICU-RN at [phone] with regards to any questions post transfer. [...] mcL Appearance UA Hazy (*) Clear Spec Cherry UA 1.026 1.002 - 1.030 Color UA [...] TANA SHELTON Ordered By: Freddy BURCIAGA MR#: [id number] LOC: OR /Sex: 1995 (18 years), Female PROCEDURE: Tissue Culture SOURCE: Back COLLECTED: 05/20/2014 20:20 FREE TEXT SOURCE: Lumbar Wound Culture STARTED: 05/20/2014 22:13 STAINS / PREPARATIONS Gram Stain Report Verified:05/20/2014 22:28 Few White Blood Cells seen No microorganisms seen. TISSUE CULTURE Result Value Ref Range Tissue Culture Value: Patient Name: TANA SHELTON Ordered By: EVITAFreddy IRENE MR#: [id number] LOC: OR /Sex: 1995 (18 years), Female [...] II initiated 0040: Report given to Jenn CARD RUNNER info reviewed/questions answered, pt ready for transfer [...] to the planned procedure. Hand Hygiene: The drum saw operator did perform hand hygiene prior to line insertion. Catheter type: PICC Lot number: [id number] Procedure Technique: Skin was prepped with chlorhexidine. [...] MD - 05/20/2014 7:05 PM EST Tana Shleton is a 18 y.o. who presents to [...] warm and was flushed. They called the irrigation supervisor neurosurgeon, who advised that they come [...] FEMORAL HEAD, BILATERAL performed by YAS OLIVER [facility] MAIN OR ??? Apply of hip casts, two legs 08/15/2010 CAST APPLICATION, HIP SPICA, BOTH LEGS performed by YAS OLIVER at [facility] MAIN OR ??? Removal deep implant 08/15/2010 REMOVAL IMPLANT, DEEP, BRUNO performed by YAS OLIVER at [facility] MAIN OR ??? Osteotomy femur shaft/supracondy 08/15/2010 ??OSTEOTOMY, FEMUR SHAFT OR SUPRACONDYLAR W/O FIXATION performed by YAS OLIVER at [facility] MAIN OR ??? Remove spinal canal catheter N/A 05/11/2014 REMOVAL OF INTRATHECAL OR EPIDURAL CATHETER performed by Jamaal Smauel MD at [facility] MAIN OR ??? Remove infusn device/pump N/A 05/11/2014 REMOVAL OF SPINE INFUSION PUMP performed by Jamaal Samuel MD at [facility] MAIN OR Medications: No current [...] stepfather Tobacco exposure:No Day care/year in school: [employer] Physical Exam: Vitals: Patient Vitals [...] mcL Appearance UA Hazy (*) Clear Spec Cherry UA 1.026 1.002 - 1.030 Color UA [...] intrathecal baclofen pump in [address] [facility]. Mother feels that the pump has [...] Routine, Hospital Performed Vendor / contact information: [facility] Patient location post discharge: home Service requested: IV abx Start date: 05/26/2014 Responsible MD post discharge contact info: PCP New (Edit) Referral to Home Health - at DISCHARGE Routine, Clinic Performed Agency name and contact information: [facility] Patient location post discharge: home What services are requested: Registered Nurse, Home Health Aide, Physical Therapy, Occupational Therapy Start date: 06/06/2014 Responsible MD post discharge contact info: PCP PATIENT'S LOCATION: Tana Shelton [address] [place] [phone] (home) In discussion with the attending physician, it is certified that this patient is under their care and that they, or a Nurse Practitioner,Clinical Nurse specialist or Physician Housekeeper Supervisor who is working directly with them, [...] Continue with therapies OT: Continue with therapies FITTER TACKER: Continue support HOME HEALTH CARE AGENCY: [facility] PHONE: [phone] FAX: [phone] Start of care: 05/26/14 Please note that any additional orders needs or changes will need to be obtained from this patient's PCP: MD Coby BRAGG DR / [place] [address] All VNA agencies which cover the area of patient's residence have been reviewed, either verbally or in writing, and patient/family have chosen the home health care agency noted Emergency contact: After hours and weekends, call the [facility] barratte operator at and ask them to page the neurosurgery resident irrigation supervisor. * Plan of Care - Margot [...] yo. Supervision: Continuous; Moraima. Fannie at home major gifts director at bedside this morning ; Mom arrived [...] Health Knowledge, Opportunity for Enhanced (Adult, NICU, [place], Obstetrics, Pediatric) Goal: Identify Signs and Symptoms [...] (Interventions Implemented as Appropriate) 05/25/14 0527 05/26/14 5905 Plan of Care Review Plan of Care [...] Health Knowledge, Opportunity for Enhanced (Adult, NICU, [place], Obstetrics, Pediatric) Goal: Identify Signs and Symptoms [...] AM EST Clinical Pharmacist Note-Vancomycin Tana Shelton [id number] 1995 Tana Shelton is a 18 y.o. [...] contact a pharmacist. Elmer Tobin, [place] Pager [phone] * Plan of Care - Leana Hicks [...] Health Knowledge, Opportunity for Enhanced (Adult, NICU, [place], Obstetrics, Pediatric) Goal: Identify Signs and Symptoms [...] Outcome: Ongoing (Interventions Implemented as Appropriate) 05/27/14 0029 Infection, Risk/Actual (Adult, Obstetrics) Infection Prevention/Resolution/Control making progress toward outcome Problem: Fall/Trauma/Injury Risk (Pediatric) Goal: Identify Signs and Symptoms and Related Risk Factors Signs and symptoms and related risk factors are identified upon initiation of Human Response Clinical Practice Guideline (CPG) Outcome: Outcome (s) achieved Date Met: 05/27/14 05/22/14202905/25/14 349 Fall/Trauma/Injury Risk Personal Related Risk Factors (Fall/Trauma/Injury Risk) gait/mobility problems/weakness -- Physiological Related Risk Factors (Fall/Trauma/Injury Risk) -- developmental disability;incontinence;neurologic alteration;neuromuscular alteration Treatment Related Related Risk Factors (Fall/Trauma/Injury Risk) -- invasive/noninvasive equipment;medication;bed rest Signs and Symptoms (Fall/Trauma/Injury Risk) -- presence of risk factors Problem: Health Knowledge, Opportunity for Enhanced (Adult, NICU, [place], Obstetrics, Pediatric) Goal: Identify Signs and Symptoms [...] 4:52 PM EST [facility] Operative Note Patient Name: Tana Shelton : [id number] MR#: [id number] Case Date: 05/26/2014 Surgeon: Surgeon(s) and Role: [...] (Interventions Implemented as Appropriate) 05/22/14 0634 05/24/14 7614 Discharge Needs Assessment Concerns to be Addressed [...] Health Knowledge, Opportunity for Enhanced (Adult, NICU, [place], Obstetrics, Pediatric) Goal: Knowledgeable about Health Subject/Topic [...] bedside;lighting adjusted for task/safety;low bed;environmental modification 05/25/14 0560 Musculoskeletal Interventions Activity/Level of Assistance -- Self-Care [...] Outcome: Ongoing (Interventions Implemented as Appropriate) 05/24/14 0299 Plan of Care Review Plan of Care [...] FEMORAL HEAD, BILATERAL performed by [facility] ??? Apply of hip casts, two legs 08/15/2010 CAST APPLICATION, HIP SPICA, BOTH LEGS performed by YAS OLIVER at [facility] OR ??? Removal deep implant 08/15/2010 REMOVAL IMPLANT, DEEP, BRUNO performed by YAS OLIVER at [facility] OR ??? Osteotomy femur shaft/supracondy 08/15/2010 ??OSTEOTOMY, FEMUR SHAFT OR SUPRACONDYLAR W/O FIXATION performed by YAS OLIVER at [facility] OR ??? [...] LUMBOSACRAL performed by Freddy Burciaga MD at [facility] OR ??? Repr, dural/csf leak, not req laminectomy N/A 05/20/2014 @REPAIR DURAL\CSF LEAK,NOT REQUIRING LAMINECTOMY performed by Freddy Burciaga MD at [facility] OR Social and Developmental History: Patient lives with her family in a single level home in [place], [place]. Pt's mother reports that their home [...] has an older sister who lives in [place] and 3 younger brothers. She likes to [...] RN and mom assist. Feeding: per mom: TE-MOAK assist for use of utensils; not observed [...] to d/c home with support and continued PT/OT/MANAGING MANAGER/VNA services. Spoke with CRC about consultfor [...] you for this occupational therapy consult. Pager: [phone] Mary Joe OT 05/24/2014 Occupational Therapy Rehabilitation Department * Initial Assessments - Nativdiad Esqueda, PT - 05/24/2014 11:12 AM EST [...] FEMORAL HEAD, BILATERAL performed by [facility] ??? Apply of hip casts, two legs 08/15/2010 CAST APPLICATION, HIP SPICA, BOTH LEGS performed by YSA OLIVER at [facility] OR ??? Removal deep implant 08/15/2010 REMOVAL IMPLANT, DEEP, BRUNO performed by YAS OLIVER at [facility] OR ??? Osteotomy femur shaft/supracondy 08/15/2010 ??OSTEOTOMY, FEMUR SHAFT OR SUPRACONDYLAR W/O FIXATION performed by YAS OLIVER at [facility] OR ??? [...] LUMBOSACRAL performed by Freddy Burciaga MD at [facility] OR ??? Repr, dural/csf leak, not req laminectomy N/A 05/20/2014 @REPAIR DURAL\CSF LEAK,NOT REQUIRING LAMINECTOMY performed by Freddy Burciaga MD at [facility] MAIN OR Social History: Patient lives with her family in a single story home in [place], [place]. Pt's mother reports that there is no stair requirement, and that she has all necessary equipment. Stairs: 0 without a rail to enter Baseline Mobility: Completely dependent for all care, home nursing VNA services 3x/week, school-based PT/OT/MANAGING MANAGER, pt due to receive a communication [...] appropriate and joins in counting with this speech writer while stretching Objective: Pt seen for [...] minutes Natividad Esqueda PT, DPT 05/24/2014 Pager: [phone] Physical Therapy Inpatient Rehabilitation Department * Plan [...] based on it's ability to penetrate the COLD ROLL INSPECTOR. We need todiscuss whether to pursue an [...] to 40 mEq. One dose of IV etqpuecjs13 mEq administered per orders. Re-check of K [...] and Lipase were normal. Per her daycare small kick press operator, may be related to administration of oxycodone as this has been issue in the past. Cannotexclude component of baclofen withdrawal, but less likely. No current concern for acute COLD ROLL INSPECTOR process. - Serial exams. Ensure daily BMs [...] although it may not have the best COLD ROLL INSPECTOR penetration unless meninges are actually inflamed. - [...] fluid only. MD called for antiemetic and LA tylenol. Zofran given when order receivedand med [...] PREVENTION: Assistance: Full assist, mom at bedside. physical therapy aides teacher will be coming in today [...] 11:53 AM EST [facility] Operative Note Patient Name: Tana Shelton : [id number] MR#: [id number] Case Date: 05/20/2014 - 05/21/2014 Surgeon: Surgeon(s) [...] FEMORAL HEAD, BILATERAL performed by YAS OLIVER [facility] MAIN OR ??? Apply of hip casts, two legs 08/15/2010 CAST APPLICATION, HIP SPICA, BOTH LEGS performed by YAS OLIVER at [facility] MAIN OR ??? Removal deep implant 08/15/2010 REMOVAL IMPLANT, DEEP, BRUNO performed by YAS OLIVER at [facility] MAIN OR ??? Osteotomy femur shaft/supracondy 08/15/2010 ??OSTEOTOMY, FEMUR SHAFT OR SUPRACONDYLAR W/O FIXATION performed by YAS OLIVER at [facility] MAIN OR ??? Remove spinal canal catheter N/A 05/11/2014 REMOVAL OF INTRATHECAL OR EPIDURAL CATHETER performed by Jamaal Samuel MD at [facility] MAIN OR ??? Remove infusn device/pump N/A 05/11/2014 REMOVAL OF SPINE INFUSION PUMP performed by Jamaal Samuel MD at [facility] MAIN OR No family history [...] mcL Appearance UA Hazy (*) Clear Spec Cherry UA 1.026 1.002 - 1.030 Color UA [...] TANA SHELTON Ordered By: Freddy BURCIAGA MR#: [id number] LOC: OR /Sex: 1995 (18 years), Female PROCEDURE: Tissue Culture SOURCE: Back COLLECTED: 05/20/2014 20:20 FREE TEXT SOURCE: Lumbar Wound Culture STARTED: 05/20/2014 22:13 STAINS / PREPARATIONS Gram Stain Report Verified:05/20/2014 22:28 Few White Blood Cells seen No microorganisms seen. TISSUE CULTURE Result Value Range Tissue Culture Value: Patient Name: TANA SHELTON Ordered By: Freddy BURCIAGA MR#: [id number] LOC: OR /Sex: 1995 (18 years), Female [...] PM EST Office [place] [address] Hollie Ambriz MD [facility] [place] [address] Pending Results Name Type Priority Associated Diagnoses [...] REQUIRING LAMINECTOMY Routine 05/20/2014 10:22 PM EST BOTTLE HOUSE CLEANERS SUPERVISOR CULTURE Routine 5 10:01 PM EST ANAEROBIC [...] not validated at [facility]. Results from pediatric patients should be interpreted [...] the following links into your internet browser. [email or web address] Blood specimen (specimen) 06/02/2014 5:55 AM EST [...] S Performing Organization Address [facility] de Phone Number LINDA BASHIR * High Sensitivity CRP (06/01/2014 12:40 PM EST) Pathologist [facility] C-Reactive Protein High Sensitivity 15.4 mg/L [facility] Comment: Interpretations: 1) For accurate cardiac risk [...] CHEMISTRY ORDERABLES Performing Organization Address [facility] Co de Phone Number [...] not validated at [facility]. Results from pediatric patients should be interpreted [...] the following links into your internet browser. [email or web address] Blood specimen (specimen) 06/01/2014 12:40 PM EST [...] S Performing Organization Address [facility] Co de Phone Number [...] S Performing Organization Address [facility] Co de Phone Number CERALIN KEMPIUM * [...] not validated at [facility]. Results from pediatric patients should be interpreted [...] the following links into your internet browser. [email or web address] Blood specimen (specimen) 05/30/2014 6:50 AM EST [...] not validated at [facility]. Results from pediatric patients should be interpreted [...] the following links into your internet browser. [email or web address] Blood specimen (specimen) 05/29/2014 7:13 AM EST 05/29/2014 7:13 AM EST Narrative Resulting Agency Comment Spec In Lab S Alek Burciaga MD CHEMISTRY ORDERABLES Performing Organization Address City/[facility] Co de Phone Number [...] S Performing Organization Address [facility] de Phone Number LINDA BASHIR * [...] S Performing Organization Address [facility] Co de Phone Number [...] S Alek Burciaga MD CHEMISTRY ORDERABLES CERALIN KMEPIUM * (ABNORMAL) Basic Metabolic Panel (non-fasting) (05/28/2014 9:00 AM EST) Glucose 121 60 - 199 mg/dL CERNER MILLENNIUM Comment:Diabetes: >=200 mg/d L plus symptoms Blood Urea Nitrogen 4(L) 8 - 18 mg/dL [facility]ER MILLENNIUM Creatinine 0.29(L) 0.70 - 1.20 mg/dL [facility]ER MILLENNIUM Comment: Please note that the pediatric reference intervals supplied above were not validated at [facility]. Results from pediatric patients should be interpreted [...] the following links into your internet browser. [email or web address] Blood specimen (specimen) 05/28/2014 9:00 AM EST [...] S Alek uBrciaga MD HEMATOLOGY ORDERABLE S Performing Organization Address City/[facility]/ZIP Co de Phone Number CERNER MILLENNIUM [...] S Alek Burciaga MD HEMATOLOGY ORDERABLE S [facility] * (ABNORMAL) Basic Metabolic Panel (non-fasting) (05/27/2014 5:30 AM EST) [facility] Glucose 81 60 - 199 mg/dL CERNER MILLENNIUM Comment:Diabetes: >=200 mg/d L plus symptoms Blood Urea Nitrogen 4(L) 8 - 18 mg/dL CERNER MILLENNIUM Creatinine 0.21(L) 0.70 - 1.20 mg/dL CERNER MILLENNIUM Comment: Please note that the pediatric reference intervals supplied above were not validated at [facility]. Results from pediatric patients should be interpreted [...] the following links into your internet browser. [email or web address] Blood specimen (specimen) 05/27/2014 5:30 AM EST 05/27/2014 5:39 AM EST Narrative Resulting Agency Comment Spec In Lab Freddy Burciaga MD CHEMISTRY ORDERABLES [facility] * Anaerobic Culture (05/26/2014 5:30 PM EST) Anaerobic Culture ? Patient Name: TANA SHELTON ? Ordered By: Freddy BURCIAGA ? MR#: [id number] ?LOC: ??[place] ? /Sex: ??1995 (18 years), [...] ? Ordered By: Freddy BURCIAGA ? MR#: [id number] ?LOC: ??[place] ? /Sex: ??1995 (18 years), [...] ? Patient: CRISTO SHELTONLIE S ? MR#: [id number] ? S=Susceptible ??I=Intermediate ??R=Resistant ??NA=Not Applicable ? DDS=Dose dependent-suscept ible ??NS=Non-suscepti ble ? [facility] Structure of back of trunk (body structure) 05/26/2014 5:30 PM EST 05/26/2014 5:41 PM EST Comment:LUMBAR Narrative Resulting Agency Comment Spec In Lab Freddy Burciaga MD MICROBIOLOGY - GENER AL ORDERABLES [facility] * Anaerobic Culture (05/26/2014 5:30 PM EST) Anaerobic Culture ? Patient Name: TANA SHELTON ? Ordered By: Freddy BURCIAGA ? MR#: [id number] ?LOC: ??PA ? /Sex: ??1995 (18 years), [...] ? Ordered By: Freddy BURCIAGA ? MR#: [id number] ?LOC: ??PA ? /Sex: ??1995 (18 years), [...] plates. ? Patient: TANA SHELTON ? MR#: [id number] ? SUSCEPTIBILITY RESULTS ? Coagulase negative Staphylococcus [...] (1) ? Gentamicin is not appropriate for [place]-therapy. ? (2) ? Penicillin resistant, Nafcillin susceptible [...] - GENER AL ORDERABLES Performing Organization Address City/State/[facility] Co de Phone Number [facility] * Anaerobic Culture (05/26/2014 5:30 PM EST) Anaerobic Culture ? Patient Name: TANA SHELTON ? Ordered By: Freddy BURCIAGA ? MR#: [id number] ?LOC: ??[place] ? /Sex: ??1995 (18 years), [...] Burciaga MD MICROBIOLOGY - GENER AL ORDERABLES [facility] * Tissue culture (05/26/2014 5:30 PM EST) Tissue Culture ? Patient Name: TANA SHELTON ? Ordered By: Freddy BURCIAGA ? MR#: [id number] ?LOC: ??[place] ? /Sex: ??1995 (18 years), [...] Screen Interp Negative CERNER MILLENNIUM Expires at [id number] on: [id number] CERNER MILLENNIUM Blood specimen (specimen) [...] prior fragment retrieval. S Alek Burciaga MD [facility] ORDERABLES * CT lumbar spine reconstruction [...] Metabolic Panel (non-fasting) (05/26/2014 4:15 AM EST) [facility] Glucose 88 60 - 199 mg/dL CERNER MILLENNIUM Comment:Diabetes: >=200 mg/d L plus symptoms Blood Urea Nitrogen 6(L) 8 - 18 mg/dL CERNER MILLENNIUM Creatinine 0.28(L) 0.70 - 1.20 mg/dL [facility]ER MILLENNIUM Comment: Please note that the pediatric reference intervals supplied above were not validated at [facility]. Results from pediatric patients should be interpreted [...] the following links into your internet browser. [email or web address] Blood specimen (specimen) 05/26/2014 4:15 AM EST 05/26/2014 4:35 AM EST Narrative Resulting Agency Comment Spec In Lab S Alek Burciaga MD CHEMISTRY ORDERABLES LINDA BASHIR * Place PICC Line: Contact Vascular Access Page [phone] (05/25/2014 4:01 PM EST) Narrative [place] [...] to the planned procedure. Hand Hygiene: The drum saw operator did perform hand hygiene prior to line insertion. Catheter type: PICC Lot number: [id number] Procedure Technique: Skin was prepped with chlorhexidine. [...] focal. COMPARISON: Scoliosis radiographs from 12/16/2011 FINDINGS: Logistics Solution Manager views demonstrate severe rightward scoliotic deformity [...] No gross collections in the cervical spine. Logistics Solution Manager coronal image 8 of series 8 [...] inf,focal. COMPARISON: Scoliosis radiographs from 12/16/2011 FINDINGS: Logistics Solution Manager views demonstrate severe rightward scoliotic deformity [...] abnormalities. No grosscollections in the cervical spine. Logistics Solution Manager coronal image 8 of series 8 [...] attending Authorizing Provider Result Bala Burciaga MD [facility] MRI ORDERABLES * MRI thoracic spine without contrast (05/25/2014 1:26 PM EST) Anatomical Region Laterality Modality T-spine Magnetic Resonan ce 05/25/2014 1:26 PM EST Narrative 05/25/2014 4:10 PM EST See accession #[id number] for dictation of this study. This report was reviewed by Andrade Rebolledo MD at 05/25/2014 4:05 PM Film and interpretation reviewed by the attending Procedure Note Andrade Roth MD - 05/25/2014 See accession #[id number] for dictation of this study. This report was reviewed by Andrade Rebolledo MD at 05/25/2014 4:05 PM Film and interpretation reviewed by the attending Alek Sinha WELD LAY OUT WORKER IMG MRI ORDERABLES * Differential, Automated (05/25/2014 [...] Metabolic Panel (non-fasting) (05/25/2014 5:00 AM EST) [facility] Glucose 87 60 - 199 mg/dL CERNER MILLENNIUM Comment:Diabetes: >=200 mg/d L plus symptoms Blood Urea Nitrogen 6(L) 8 - 18 mg/dL CERNER MILLENNIUM Creatinine 0.27(L) 0.70 - 1.20 mg/dL CERNER MILLENNIUM Comment: Please note that the pediatric reference intervals supplied above were not validated at [facility]. Results from pediatric patients should be interpreted [...] the following links into your internet browser. [email or web address] Blood specimen (specimen) 05/25/2014 5:00 AM EST [...] S Performing Organization Address [facility]/ZIP Co de Phone Number LINDA TOMASENNIUM [...] Metabolic Panel (non-fasting) (05/24/2014 12:42 PM EST) [facility] Glucose 78 60 - 199 mg/dL CERNER MILLENNIUM Comment:Diabetes: >=200 mg/d L plus symptoms Blood Urea Nitrogen 4(L) 8 - 18 mg/dL CERNER MILLENNIUM Comment:result rechecked-f Creatinine 0.39(L) 0.70 - 1.20 mg/dL CERNER MILLENNIUM Comment: Please note that the pediatric reference intervals supplied above were not validated at [facility]. Results from pediatric patients should be interpreted [...] the following links into your internet browser. [email or web address] Blood specimen (specimen) 05/24/2014 12:42 PM EST 05/24/2014 12:42 PM EST Narrative Resulting Agency Comment Spec In Lab S Alek Burciaga MD CHEMISTRY ORDERABLES [facility] [employer] Electric VehiclesD[facility] * Vancomycin, trough (05/24/2014 12:29 PM EST) [...] CHEMISTRY ORDERABLES Performing Organization Address [facility] de Phone Number CERALIN TOMASENNIUM * [...] CHEMISTRY ORDERABLES Performing Organization Address [facility] Co de Phone Number [...] CHEMISTRY ORDERABLES Performing Organization Address [facility]/ZIP Co de Phone Number [facility] MILL[facility] * Magnesium (05/22/2014 12:45 PM EST) [...] CHEMISTRY ORDERABLES Performing Organization Address [facility] Co de Phone Number CERNER THOMENNIUM * Amylase (05/22/2014 12:45 PM EST) Amylase 89 28 - 100 unit/L CERNER MILLENNIUM Blood specimen (specimen) 05/22/2014 12:45 PM EST 05/22/2014 1:03 PM EST Narrative Resulting Agency Comment Spec In Lab Lucho Smith MD CHEMISTRY ORDERABLES Performing Organization Address [facility] de Phone Number CERNER MILLENNIUM * [...] not validated at [facility]. Results from pediatric patients should be interpreted [...] the following links into your internet browser. [email or web address] Blood specimen (specimen) 05/22/2014 12:45 PM EST 05/22/2014 1:03 PM EST Narrative Resulting Agency Comment Spec In Lab Lucho Smith MD CHEMISTRY ORDERABLES [facility] THOMEN[facility] * Differential, Automated (05/22/2014 6:10 AM [...] S Performing Organization Address [facility] Co de Phone Number [...] CHEMISTRY ORDERABLES Performing Organization Address [facility] de Phone Number LINDA BASHIR * (ABNORMAL) Basic Metabolic Panel (non-fasting) (05/22/2014 6:10 AM EST) Glucose 86 60 - 199 mg/dL [facility] Comment:Diabetes: >=200 mg/d L plus symptoms Blood Urea Nitrogen 3(L) 8 - 18 mg/dL [facility] Creatinine 0.27(L) 0.70 - 1.20 mg/dL [facility] Comment: Please note that the pediatric reference intervals supplied above were not validated at [facility]. Results from pediatric patients should be interpreted in conjunction to the patient's age, height and muscle mass. Sodium 141 135 - 145 mmol/L [facility] MILLENNIUM Potassium 2.9(Criti dean) 3.5 - [...] the following links into your internet browser. [email or web address] Blood specimen (specimen) 05/22/2014 6:10 AM EST [...] not validated at [facility]. Results from pediatric patients should be interpreted [...] the following links into your internet browser. [email or web address] Blood specimen (specimen) 05/21/2014 4:23 AM EST 05/21/2014 4:38 AM EST Narrative Resulting Agency Comment Spec In Lab Freddy Burciaga MD CHEMISTRY ORDERABLES [facility] * Fitter Tacker Culture (05/20/2014 10:01 PM EST) Fitter Tacker Culture ? Patient Name: TANA SHELTON ? Ordered By: Freddy BURCIAGA ? MR#: [id number] ?LOC: ??[place] ? /Sex: ??1995 (18 years), ? Female ? PROCEDURE: Fitter Tacker Culture ?SOURCE: Other ? COLLECTED: 05/20/2014 22:01 [...] ? Ordered By: Freddy BURCIAGA ? MR#: [id number] ?LOC: ??[place] ? /Sex: ??1995 (18 years), [...] ? Ordered By: Freddy BURCIAGA ? MR#: [id number] ?LOC: ??[place] ? /Sex: ??1995 (18 years), [...] ? Patient: TANA SHELTON S ? MR#: [id number] ? S=Susceptible ??I=Intermediate ??R=Resistant ??NA=Not Applicable ? DDS=Dose dependent-suscept ible ??NS=Non-suscepti ble ? [facility] MILLENNIUM Structure of back of trunk (body structure) 05/20/2014 9:25 PM EST 05/20/2014 10:12 PM EST Comment:LUMBAR WOUND CULTURE #2 Narrative Resulting Agency Comment Spec In Lab S Alek Burciaga MD MICROBIOLOGY - GENER AL ORDERABLES Performing Organization Address [facility] de Phone Number LINDA BASHIR * Anaerobic Culture (05/20/2014 8:20 PM EST) Anaerobic Culture ? Patient Name: TANA SHELTON ? Ordered By: Freddy BURCIAGA ? MR#: [id number] ?LOC: ??[place] ? /Sex: ??1995 (18 years), [...] AL ORDERABLES Performing Organization Address [facility]/State/ZIP Co de Phone Number LINDA BASHIR * Tissue culture (05/20/2014 8:20 PM EST) Tissue Culture ? Patient Name: TANA SHELTON ? Ordered By: Freddy BURCIAGA ? MR#: [id number] ?LOC: ??[place] ? /Sex: ??1995 (18 years), [...] ? Ordered By: BELKIS LOUIE ? MR#: [id number] ?LOC: ??[place] ? /Sex: ??1995 (18 years), ? Female ? PROCEDURE: Urine Culture ?SOURCE: [facility] ? COLLECTED: 05/20/2014 18:46 ? [...] Narrative Resulting Agency Comment Spec In Lab Eblkis R Dufty MD MICROBIOLOGY - GENER AL ORDERABLES Performing Organization Address City/[facility]/ZIP Co de Phone Number LINDA KEMPIUM [...] Urine Dipstick Hazy(A) Clear CERNER MILLENNIUM Specific Cherry Urine Automated 1.026 1.002 - 1.030 CERNER [...] Louie MD URINE ORDERABLES Performing Organization Address City/[facility]/ZIP Co de Phone Number LINDA KEMPIUM * L-Lactate2 Whole Blood (05/20/2014 6:17 PM EST) Lactate WB 1.6 0.5 - 2.2 mmol/L LINDA BASHIR Blood specimen (specimen) 05/20/2014 6:17 PM EST 05/20/2014 6:17 PM EST Belkis Louie MD CHEMISTRY ORDERABLES [facility] * Blood culture (05/20/2014 6:00 PM EST) Blood Culture ? Patient Name: TANA SHELTON ? Ordered By: BELKIS LOUIE ? MR#: [id number] ?LOC: ??[place] ? /Sex: ??1995 (18 years), [...] Louie MD CHEMISTRY ORDERABLES Performing Organization Address City/[facility]/ZIP Co de Phone Number CERALIN TOMASENNIUM [...] ? Ordered By: BELKIS LOUIE ? MR#: [id number] ?LOC: ??[place] ? /Sex: ??1995 (18 years), [...] ? No growth at 4 days. ? [facility] Blood specimen (specimen) STRUCTURE OF LEFT HAND / Unknown 05/20/2014 5:15 PM EST 05/20/2014 7:17 PM EST Comment:HOLD UNTIL MD HULL Narrative Resulting Agency Comment Spec In Lab Belkis Louie MD MICROBIOLOGY - BLOOD ORDERABLES [facility] * Glucose, random (05/20/2014 5:15 PM EST) Glucose 81 60 - 199 mg/dL [facility] Comment:Diabetes: >=200 mg/d L plus symptoms Blood specimen (specimen) 05/20/2014 5:15 PM EST 05/20/2014 5:31 PM EST Narrative Resulting Agency Comment Spec In Lab Belkis Louie MD CHEMISTRY ORDERABLES Performing Organization Address [facility] de Phone Number [facility] * (ABNORMAL) Creatinine (05/20/2014 5:15 PM EST) Creatinine 0.37(L) 0.70 - 1.20 mg/dL [facility] Comment: Please note that the pediatric reference intervals supplied above were not validated at [facility]. Results from pediatric patients should be interpreted in conjunction to the patient's age, height and muscle mass. Est Glomerular Filtration Rate >60 >=60 [facility] Comment: This estimated GFR (eGFR) value was [...] the following links into your internet browser. [email or web address] Blood specimen (specimen) 05/20/2014 5:15 PM EST 05/20/2014 5:31 PM EST Narrative Resulting Agency Comment Spec In Lab Belkis Louie MD CHEMISTRY ORDERABLES Performing Organization Address [facility] de Phone Number [facility] * BUN (05/20/2014 5:15 PM EST) Blood Urea Nitrogen 9 8 - 18 mg/dL [facility] Blood specimen (specimen) 05/20/2014 5:15 PM EST 05/20/2014 5:31 PM EST Narrative Resulting Agency Comment Spec In Lab Belkis Louie MD CHEMISTRY ORDERABLES Performing Organization Address [facility] Co de Phone Number [...] CHEMISTRY ORDERABLES Performing Organization Address [facility] Co de Phone Number [...] Nely Boss, Indication for (Active or Suspected): COLD ROLL INSPECTOR/Meningitis 0616 (Given - Provider: Linsey Mcintyre RN)[id number] [...] Routine documented in this encounter Care Teams Maintenance Plumber Relationship Specialty Start Date End Date Naina Lindsey MD [address] [place] [address] PCP - General 03/19/10 08/25/16 documented as of this encounter
--- OUTSIDE RECORDS SUMMARY | 2023-12-07 15:27 | XMS_ITS | Encounter Summary ---
[place] [address] Care Team Providers Care Automatic Fabric Cutter Name Role Phone Naina Lindsey MD Primary Care Provider [phone] Encounter Details Date Type Department Care Team (Late st Contact Info) Description 05/20/2014 8:18 PM EST Anesthesia [place] [id number] Eli Alexander MD [facility] [place] [address] Neva Gómez MD [facility] [place] [address] Anesthesia Record Procedure Summary Procedure Name Responsible [...] cleanup utility RA#[id number]) 05/20/14 0000 by Andrade hO RN 12/23/21 1715 by Philippe Bonner (RETIRED) Peripheral IV Line - Single Lumen 05/20/14; 1800; jugular vein, external left (neck); [id number] catheter system; 18 gauge, 1 in length; [...] BILATERAL performed by BARRERA OLIVER [facility] MAIN OR ??? Apply of hip casts, two legs 08/15/2010 CAST APPLICATION, HIP SPICA, BOTH LEGS performed by BARRERA OLIVER at [facility] MAIN OR ??? Removal deep implant 08/15/2010 REMOVAL IMPLANT, DEEP, BRUNO performed by BARRERA OLIVER at [facility] MAIN OR ??? Osteotomy femur shaft/supracondy 08/15/2010 ??OSTEOTOMY, FEMUR SHAFT OR SUPRACONDYLAR W/O FIXATION performed by BARRERA OLIVER at [facility] MAIN OR ??? Remove spinal canal catheter N/A 05/11/2014 REMOVAL OF INTRATHECAL OR EPIDURAL CATHETER performed by Jamaal Samuel MD at [facility] MAIN OR ??? Remove infusn device/pump N/A 05/11/2014 REMOVAL OF SPINE INFUSION PUMP performed by Jamaal Samuel MD at [facility] MAIN OR History Substance Use [...] PM EST Office Visit Infectious Disease at [facility] [place] [phone] Hollie Ambriz MD [facility] [address] documented as of this encounter Visit Diagnoses [...] mg documented in this encounter Care Teams Automatic Fabric Cutter Relationship Specialty Start Date End Date Naina Lindsey MD [address] [place] [address] PCP - General 03/19/10 08/25/16 documented as of this encounter
--- OUTSIDE RECORDS SUMMARY | 2023-12-07 15:28 | XMS_ITS | Encounter Summary ---
Author Organization [facility] [place] [address] Care Team Providers Care Professor Of Economics Name Role Phone Naina Lindsey MD Primary Care Provider [phone] Reason for Visit * Reason Comments Pain Encounter Details Date Type Department Care Team (Latest Contact Info) Description 02/15/2014 4:45 PM EDT Procedure visit [place] [phone] Donnell Dotson MD [facility] [address] Spasticity; Abnormal involuntary movements(771.0) Discharge Disposition: Home Social History Tobacco Use [...] in this encounter Procedure Notes * Donnell oDtson MD - 02/15/2014 5:33 PM EDTAssociated Order(s): [...] PM EST Office [place] [address] Hollie Ambriz MD [facility] [place] [address] documented as of this encounter Procedures Procedure [...] movements documented in this encounter Care Teams Professor Of Economics Relationship Specialty Start Date End Date Naina Lindsey MD [address] [place] [address] PCP - General 03/19/10 08/25/16 documented as of this encounter
--- OUTSIDE RECORDS SUMMARY | 2023-12-07 15:28 | XMS_ITS | Encounter Summary ---
Author Organization [facility] [place] [address] Care Team Providers Care Cigar Sorter Name Role Phone Naina Lindsey MD Primary Care Provider [phone] Encounter Details Date Type Department Care Team (Late st Contact Info) Description 12/21/2013 1:40 PM EDT Ancillary Procedure [place] [phone] Chuckie Mayfield MD [facility] [place] [address] Social History Tobacco Use Types Packs/Day Years [...] PM EST Office [place] [phone] Hollie Ambriz MD [facility] [place] [address] documented as of this encounter Procedures Procedure Name Priority Date/Time Associated Diagnosis Comments FILM LIBRARY STORAGE ONLY DX WRIST Routine 12/21/2013 1:40 PM EDT documented in this encounter Results * Film Library- Storage Only DX Wrist (12/21/2013 1:40 PM EDT) 08/10/2023 3:14 PM EDT Narrative [facility] - 08/10/2023 3:14 PM EDT This exam is auto-finalizing. It's purpose is for storage only. Chuckie Mayfield MD IMG FILM LIBRARY ORD ERABLES [place], [place] documented in this encounter Visit Diagnoses Not on filedocumented in this encounter Care Teams Cigar Sorter Relationship Specialty Start Date End Date Naina Lindsey MD [address] [place] [address] PCP - General 03/19/10 08/25/16 documented as of this encounter
--- OUTSIDE RECORDS SUMMARY | 2023-12-07 15:28 | XMS_ITS | Encounter Summary ---
Author Organization [facility] [place] [address] Care Team Providers Care Manager Client Support Name Role Phone Naina Lindsey MD Primary Care Provider [phone] Encounter Details Date Type Department Care Team (Late st Contact Info) Description 01/05/2012 Orders [place] [address] Christiano Floyd MD [facility] [place] [address] Spasticity (Primary Dx) Social History [...] EST Office Visit [place] [address] Hollie Ambriz MD [facility] [place] [address] documented as of this encounter Visit Diagnoses Diagnosis Spasticity- Primary Abnormal involuntary movements documented in this encounter Care Teams Manager Client Support Relationship Specialty Start Date End Date Naina Lindsey MD [address] [place] [address] [place] [address] PCP - General 03/19/10 08/25/16 documented as of this encounter
--- OUTSIDE RECORDS SUMMARY | 2023-12-07 15:28 | XMS_ITS | Encounter Summary ---
Author Organization [facility] Benjamin [facility] [place] [address] Care Team Providers Care Ice Plant Operator Name Role Phone Naina Lindsey MD Primary Care Provider [phone] Encounter Details Date Type Department Care Team (Late st Contact Info) Description 03/10/2014 Orders [place] [address] Alek Sinha, [place] [facility] [place] [address] Pre-op chest exam; Pre-op evaluation Social History [...] Office [place] [address] Hollie Ambriz MD [facility] [place] [address] documented as of this encounter Visit Diagnoses Diagnosis Pre-op chest exam Pre-operative respiratory examination Pre-op evaluation Preoperative examination, unspecified documented in this encounter Care Teams Ice Plant Operator Relationship Specialty Start Date End Date Naina Lindsey MD [address] [place] [address] PCP - General 03/19/10 08/25/16 documented as of this encounter
--- OUTSIDE RECORDS SUMMARY | 2023-12-07 15:28 | XMS_ITS | Encounter Summary ---
Author Organization [facility] Benjamin [facility] [place] [address] Care Team Providers Care Knock Out Hand Name Role Phone Naina Lindsey MD Primary Care Provider Encounter Details Date Type Department Care Team (Late st Contact Info) Description 07/20/2012 Orders [place] [address] [facility] [place] [address] Social History Tobacco Use Types Packs/Day Years [...] PM EST Office [place] [address] [facility] [address] INFECTIOUS DISEASE [place], [place] [id number] documented as of this encounter Visit Diagnoses Not on filedocumented in this encounter Care Teams Knock Out Hand Relationship Specialty Start Date End Date Naina Lindsey MD [address] [place] [address] PCP - General 03/19/10 08/25/16 documented as of this encounter
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
--- OUTSIDE RECORDS SUMMARY | 2023-12-07 15:28 | XMS_ITS | Encounter Summary ---
Author Organization [facility] [place] [address] Care Team Providers Care Route Sales Driver Name Role Phone Naina Lindsey MD Primary Care Provider [phone] Encounter Details Date Type Department Care Team (Late st Contact Info) Description 07/12/2012 Telephone [place] [phone] Aniket Heredia MD [facility] [place] [address] Social History Tobacco Use Types Packs/Day Years [...] her child evaluated in the ED at [facility] over the weekend and today again at her industrial truck operator's office. She reports that Tana seems to [...] this plan. Aniket Heredia MD Pain fellow [facility] documented in this encounter Plan of Treatment Upcoming Encounters Date Type Department Care Team (Late st Contact Info) Description 06/02/2024 12:30 PM EST Office [place] [address] Hollie Ambriz MD [facility] [place] [address] documented as of this encounter Visit Diagnoses Not on filedocumented in this encounter Care Teams Route Sales Driver Relationship Specialty Start Date End Date Naina Linsdey MD [address] [place] [address] [place] [address] PCP - General 03/19/10 08/25/16 documented as of this encounter
--- OUTSIDE RECORDS SUMMARY | 2023-12-07 15:28 | XMS_ITS | Encounter Summary ---
Author Organization [facility] [place] [address] Care Team Providers Care Floatlight Loading Supervisor Name Role Phone Naina Lindsey MD Primary Care Provider [phone] Encounter Details Date Type Department Care Team (Late st Contact Info) Description 03/03/2014 External [place] [address] Donnell Dotson MD [facility] [place] [address] Social History Tobacco Use Types [...] PM EST Office Visit [place] [address] Hollie Ambriz MD [facility] [place] [address] documented as of this encounter Procedures Procedure Name Priority Date/Time Associated Diagnosis Comments IMPLANTABLE DEVICES SCAN Routine 02/28/2014 8:00 AM EST IMPLANTABLE DEVICES SCAN Routine 02/15/2014 8:41 AM EDT IMPLANTABLE DEVICES SCAN Routine 02/09/2014 8:42 AM EDT IMPLANTABLE DEVICES SCAN Routine 01/25/2014 9:19 AM EDT documented in this encounter Visit Diagnoses Not on filedocumented in this encounter Care Teams Floatlight Loading Supervisor Relationship Specialty Start Date End Date Naina Lindsey MD [address] [place] [address] PCP - General 03/19/10 08/25/16 documented as of this encounter
--- OUTSIDE RECORDS SUMMARY | 2023-12-07 15:28 | XMS_ITS | Encounter Summary ---
Author Organization [facility] [place] [address] Care Team Providers Care Middle School English Teacher Name Role Phone Naina Lindsey MD Primary Care Provider [phone] Encounter Details Date Type Department Care Team (Latest Contact Info) Description 03/29/2014 4:15 PM EST Procedure [place] [phone] Donnell Dotson MD [facility] [place] [address] Traumatic brain injury, subsequent encounter; Abnormal involuntary [...] would be in order. Donnell Dotson MD Hand Flesher of Anesthesiology [facility] documented in this encounter Plan of Treatment Upcoming Encounters Date Type Department Care Team (Late st Contact Info) Description 06/02/2024 12:30 PM EST Office [place] [address] Hollie Ambriz MD [facility] [place] [address] documented as of this encounter Procedures Procedure [...] would be in order. Donnell Dotson MD Hand Flesher of Anesthesiology [facility] Donnell Dotson MD PROCEDURE/MINOR SURG ICAL ORDERABLES documented in this encounter Visit Diagnoses Diagnosis Traumatic brain injury, subsequent encounter Abnormal involuntary movements(781.0) Abnormal involuntary movements documented in this encounter Care Teams Middle School English Teacher Relationship Specialty Start Date End Date Naina Lindsey MD [address] [place] [address] PCP - General 03/19/10 08/25/16 documented as of this encounter
--- OUTSIDE RECORDS SUMMARY | 2023-12-07 15:28 | XMS_ITS | Encounter Summary ---
Author Organization [facility] [place] [address] Care Team Providers Care Aircraft Instrument Repairer Name Role Phone Naina Lindsey MD Primary Care Provider [phone] Encounter Details Date Type Department Care Team (Latest Contact Info) Description 07/22/2012 9:00 AM EDT Procedure [place] [address] Woody Marino MD 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 Marino Vacuum Worker: Chelsea Alva Reason for Reprogramming or Adjustment: Refill Rate Adjustment: No Diagnosis: Spasticity Concomitant Medical Problems: Telemetry Pre-programming Reading: Drug: Baclofen Concentration: 1000 mcg/ml Dose Delivery per day: 195.1 mcg/day Infusion Mode: simple continuous Telemetry Post-programming Reading: Drug: Baclofen Concentration: 1000 mcg/ml (RX #[id number], discard date 08/28/12) Dose Delivery per day: 195.1 mcg/day Infusion Mode: simple continuous Pump Capacity: [] 20 ml [xxx] 40 ml Expected [place] Volume this visit: 2.6 ml Actual [place] Volume this visit: 3.5 ml Medication or [...] drapes were applied as provided with the Intellutiontronic refill kit. A 22 gauge Persaud non-coring [...] instilled into the pump according to the software applications designer's directions without difficulty. There was no evidence [...] PM EST Office [place] [address] Hollie Ambriz MD [facility] [place] [address] documented as of this encounter Procedures Procedure [...] Intrathecal Pump Reprogramming or Adjustment Tana Cavazos [id number] Date of Programming/Adjustment: 07/22/12 Primary Emergency Doctor: ??Dr. Marino Vacuum Worker: ??Chelsea Alva Reason for Reprogramming or Adjustment: Refill Rate Adjustment: No Diagnosis: Spasticity Concomitant Medical Problems: ?? Telemetry Pre-programming Reading: ?? Drug: Baclofen Concentration: 1000 mcg/ml Dose Delivery per day: 195.1 mcg/day Infusion Mode: ?? simple continuous ?? Telemetry Post-programming Reading: ?? Drug: Baclofen Concentration: 1000 mcg/ml (RX #[id number], discard date 08/28/12) Dose Delivery per day: 195.1 mcg/day Infusion Mode: ?? simple continuous ? Pump Capacity: [] 20 ml [xxx] 40 ml Expected [place] Volume this visit: 2.6 ml Actual [place] Volume this visit: 3.5 ml Medication or [...] drapes were applied as provided with the Intellutiontronic refill kit. A 22 gauge Persaud non-coring [...] instilled into the pump according to the software applications designer's directions without difficulty. There was no evidence [...] Intrathecal Pump Reprogramming or Adjustment Tana Cavazos [id number] Date of Programming/Adjustment: 07/22/12 Primary Emergency Doctor: Dr. Marino Vacuum Worker: Chelsea Alva Reason for Reprogramming or Adjustment: Refill Rate Adjustment: No Diagnosis: Spasticity Concomitant Medical Problems: Telemetry Pre-programming Reading: Drug: Baclofen Concentration: 1000 mcg/ml Dose Delivery per day: 195.1 mcg/day Infusion Mode: simple continuous Telemetry Post-programming Reading: Drug: Baclofen Concentration: 1000 mcg/ml (RX #[id number], discard date 08/28/12) Dose Delivery per day: 195.1 mcg/day Infusion Mode: simple continuous Pump Capacity: [] 20 ml [xxx] 40 ml Expected [place] Volume this visit: 2.6 ml Actual [place] Volume this visit: 3.5 ml Medication or [...] Sterile drapes were applied as provided withthe ContextPlane refill kit. A 22 gauge Persaud non-coring [...] Baclofen 1000 mcg/ml - 40 ml - RX#[id number] Given 07/22/2012 9:33 AM EDT 1 each documented in this encounter Care Teams Aircraft Instrument Repairer Relationship Specialty Start Date End Date Naina Lindsey MD [address] [place] [address] PCP - General 03/19/10 08/25/16 documented as of this encounter
--- OUTSIDE RECORDS SUMMARY | 2023-12-07 15:28 | XMS_ITS | Encounter Summary ---
Author Organization [facility] Benjamin [facility] [place] [address] Care Team Providers Care Mutual Funds Agent Name Role Phone Naina Lindsey MD Primary Care Provider [phone] Encounter Details Date Type Department Care Team (Late st Contact Info) Description 12/21/2013 1:30 PM EDT Ancillary Procedure [place] [address] Chuckie Mayfield MD [facility] [place]OP[place] [address] Social History Tobacco Use Types Packs/Day Years [...] PM EST Office Visit [place] [address] Hollie Ambriz MD [facility] [place] [address] documented as of this encounter Procedures Procedure Name Priority Date/Time Associated Diagnosis Comments FILM LIBRARY STORAGE ONLY DX UPPER EXTREMITY Routine 12/21/2013 1:30 PM EDT documented in this encounter Results * Film Library- Storage Only DX Upper Extremity (12/21/2013 1:30 PM EDT) 08/10/2023 3:14 PM EDT Narrative [facility] - 08/10/2023 3:14 PM EDT This exam is auto-finalizing. It's purpose is for storage only. Chuckie Mayfield MD IMG FILM LIBRARY ORD ERABLES [place], [place] documented in this encounter Visit Diagnoses Not on filedocumented in this encounter Care Teams Mutual Funds Agent Relationship Specialty Start Date End Date Naina Lindsey MD [address] [place] [address] PCP - General 03/19/10 08/25/16 documented as of this encounter
--- OUTSIDE RECORDS SUMMARY | 2023-12-07 15:28 | XMS_ITS | Encounter Summary ---
Author Organization [facility] [place] [address] Care Team Providers Care Tooling Mechanic Name Role Phone Naina Lindsey MD Primary Care Provider [phone] Encounter Details Date Type Department Care Team (Late st Contact Info) Description 02/27/2014 Telephone [place] [address] Donnell Dotson MD [facility] [place] [address] Social History Tobacco Use Types Packs/Day Years [...] PM EST Office [place] [address] Hollie Ambriz MD [facility] [place] [address] documented as of this encounter Visit Diagnoses Not on filedocumented in this encounter Care Teams Tooling Mechanic Relationship Specialty Start Date End Date Naina Lindsey MD [address] [place] [address] PCP - General 03/19/10 08/25/16 documented as of this encounter
--- OUTSIDE RECORDS SUMMARY | 2023-12-07 15:28 | XMS_ITS | Encounter Summary ---
Author Organization [facility] Benjamin [facility] [place] [address] Care Team Providers Care Investigation Division Captain Name Role Phone Naina Lindsey MD Primary Care Provider [phone] Encounter Details Date Type Department Care Team (Late st Contact Info) Description 07/08/2012 Orders Only [place] [address] Bigg Dunbar MD [facility] [place] [address] Spasticity (Primary Dx) Social History Tobacco Use [...] PM EST Office [place] [address] Hollie Ambriz MD [facility] [place] [address] documented as of this encounter Visit Diagnoses Diagnosis Spasticity- Primary Abnormal involuntary movements documented in this encounter Care Teams Investigation Division Captain Relationship Specialty Start Date End Date Naina Lindsey MD [address] [place] [address] [place] [address] PCP - General 03/19/10 08/25/16 documented as of this encounter
--- OUTSIDE RECORDS SUMMARY | 2023-12-07 15:28 | XMS_ITS | Encounter Summary ---
Author Organization [facility] Benjamin [facility] [place] [address] Care Team Providers Care Scale Manager Name Role Phone Naina Lindsey MD Primary Care Provider [phone] Reason for Visit * Reason Comments Bilateral Leg Pain CP Encounter Details Date Type Department Care Team (Late st Contact Info) Description 05/19/2011 10:40 AM EST [place] [address] Yas Ramirez MD [facility] [place] [address] TBI (traumatic brain injury) (Primary Dx); Scoliosis; [...] PM EST Office Visit [place] [address] Hollie Ambriz MD [facility] [place] [address] documented as of this encounter Results * [...] idiopathic documented in this encounter Care Teams Scale Manager Relationship Specialty Start Date End Date Naina Lindsey MD [address] [place] [address] PCP - General 03/19/10 08/25/16 documented as of this encounter
--- OUTSIDE RECORDS SUMMARY | 2023-12-07 15:28 | XMS_ITS | Encounter Summary ---
[place] [address] Care Team Providers Care Automatic Equipment Technician Name Role Phone Naina Lindsey MD Primary Care Provider Reason for Visit * Reason Comments Pain Encounter Details Date Type Department Care Team (Latest Contact Info) Description 01/25/2014 4:00 PM EDT Procedure [place] [phone] [facility] [place] [address] Traumatic brain injury, subsequent encounter (Primary Dx) [...] Pump Reprogramming Only Procedure Note Tana Cavazos [id number] Date of Refill: January 25, [address] Worker: KAREN EARLY DO Block Sealer: Donnell Dotson MD Reason for Reprogramming: NA 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 Prior to this surgery the patient [...] available to conference the patient's physicians at [facility] as this decision is made. The mother will contact the orthopedic surgeon who performed the procedure to get his input as to whether he feels the baclofen has been helping. She will also request referral to a pediatric physiatry doctor at [facility] and will contact us back with [...] PM EST Office [place] [address] Hollie Ambriz MD [facility] [place] [address] documented as of this encounter Visit Diagnoses Diagnosis Traumatic brain injury, subsequent encounter- Primary documented in this encounter Care Teams Automatic Equipment Technician Relationship Specialty Start Date End Date Naina Lindsey MD [address] [place] [address] [place] [address] PCP - General 03/19/10 08/25/16 documented as of this encounter
--- OUTSIDE RECORDS SUMMARY | 2023-12-07 15:28 | XMS_ITS | Encounter Summary ---
Author Organization [facility] [place] [address] Care Team Providers Care On Site Coordinator Name Role Phone Naina Lindsey MD Primary Care Provider [phone] Encounter Details Date Type Department Care Team (Late st Contact Info) Description 07/12/2012 Telephone [place] [phone] Aniket Heredia MD [facility] [place] [place] [address] Social History Tobacco Use Types Packs/Day Years [...] PM EST Office [place] [address] Hollie Ambriz MD [facility] [place] [address] documented as of this encounter Visit Diagnoses Not on filedocumented in this encounter Care Teams On Site Coordinator Relationship Specialty Start Date End Date Naina Lindsey MD [address] [place] [address] PCP - General 03/19/10 08/25/16 documented as of this encounter
--- OUTSIDE RECORDS SUMMARY | 2023-12-07 15:28 | XMS_ITS | Encounter Summary ---
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 Dotson Reason for Reprogramming: Pump alarm date approaching Diagnosis: Spacticity, traumatic head injury Telemetry Pre-programming Reading: Drug Concentration Daily Dose Baclofen 1,000 mcg/ ml 195.1 mcg/ day Telemetry Post-programming Reading: Drug Concentration Daily Dose Brand (B) or Compound (C) Lot number Baclofen 1,000 mcg/ ml 195.1 mcg/ day Compound #[id number] Simple Continuous Rx # [id number] Exp. 02/05/13 Pump Capacity: 40 ml Computer Predicted Residual Volume in Pump (ml): 4.5 ml Measured Residual volume in Pump (ml): 5.8 ml Medication or Dose Changes: no Is dose change > 30%? n/a Is concentration or drug different? no Empty syringe concentration verified by checkering machine adjuster: yes If concentration or drug is different, [...] instilled into the pump according to the cork grinder's directions without difficulty. There was no evidence [...] EST Office Visit [place] [address] Hollie Ambriz MD [facility] [place] [address] documented as of this encounter Procedures Procedure [...] with Reprogramming Procedure Note Tana Cavazos ? [id number] Date of Refill: January 20, 2013 Primary Conference Service Coordinator: ASHKAN BRANTLEY APRN Lime Sludge Mixer: Dr. Dotson Reason for Reprogramming: ??Pump alarm date approaching Diagnosis: ??Spacticity, traumatic head injury Telemetry Pre-programming Reading: Drug Concentration Daily Dose Baclofen 1,000 mcg/ ml 195.1 mcg/ day ? Telemetry Post-programming Reading: ?? Drug Concentration Daily Dose Brand (B) or Compound (C) Lot number Baclofen 1,000 mcg/ ml 195.1 mcg/ day Compound #[id number] Simple Continuous ?? Rx # [id number] Exp. 02/05/13 ? Pump Capacity: ??40 ml Computer Predicted Residual Volume in Pump (ml): ??4.5 ml Measured Residual volume in Pump (ml): 5.8 ml Medication or Dose Changes: ?no Is dose change > 30%?n/a Is concentration or drug different? ??no Empty syringe concentration verified by checkering machine adjuster: ?? yes If concentration or drug is [...] drapes were applied as provided with the ??Dreamscape Blue refill kit. A 22 gauge Persaud non-coring [...] instilled into the pump according to the cork grinder's directions without difficulty. There was no evidence [...] Pump with Reprogramming Procedure Note Tana Cavazos [id number] Date of Refill: January 20, 2013 Primary Conference Service Coordinator: ASHKAN BRANTLEY APRN Lime Sludge Mixer: Dr. Dotson Reason for Reprogramming: Pump alarm date approaching Diagnosis: Spacticity, traumatic head injury Telemetry Pre-programming Reading: Drug Concentration Daily Dose Baclofen 1,000 mcg/ ml 195.1 mcg/ day Telemetry Post-programming Reading: Drug Concentration Daily Dose Brand (B) or Compound (C) Lot number Baclofen 1,000 mcg/ ml 195.1 mcg/ day Compound #[id number] Simple Continuous Rx # [id number] Exp. 02/05/13 Pump Capacity: 40 ml Computer Predicted Residual Volume in Pump (ml): 4.5 ml Measured Residual volume in Pump (ml): 5.8 ml Medication or Dose Changes: no Is dose change > 30%? n/a Is concentration or drug different? no Empty syringe concentration verified by checkering machine adjuster: yes If concentration or drug is different, [...] wasinstilled into the pump according to the cork grinder's directions withoutdifficulty. There was no evidence of [...] procedure well [facility] Follow-up appointments will be arranged for [...] each documented in this encounter Care Teams Runner Man Relationship Specialty Start Date End Date Naina Lindsey MD [address] [place] [address] PCP - General 03/19/10 08/25/16 documented as of this encounter
--- OUTSIDE RECORDS SUMMARY | 2023-12-07 15:28 | XMS_ITS | Encounter Summary ---
Author Organization [facility] [place] [address] Care Team Providers Care Wallpaper Embosser Helper Name Role Phone Naina Lindsey MD Primary Care Provider [phone] Encounter Details Date Type Department Care Team (Late st Contact Info) Description 12/22/2012 Orders [place] [address] Christiano Floyd MD [facility] [place] [address] Social History Tobacco Use Types Packs/Day Years [...] PM EST Office [place] [address] Hollie Ambriz MD [facility] [place] [address] documented as of this encounter Visit Diagnoses Not on filedocumented in this encounter Care Teams Wallpaper Embosser Helper Relationship Specialty Start Date End Date Naina Lindsey MD [address] [place] [address] [place] [address] PCP - General 03/19/10 08/25/16 documented as of this encounter
--- OUTSIDE RECORDS SUMMARY | 2023-12-07 15:28 | XMS_ITS | Encounter Summary ---
Author Organization [facility] [place] [address] Care Team Providers Care Hourly Team Members Name Role Phone Naina Lindsey MD Primary Care Provider [phone] Reason for Visit * Reason Comments Other pump wean Encounter Details Date Type Department Care Team (Latest Contact Info) Description 02/09/2014 11:45 AM EDT Procedure [place] [phone] Donnell Dotson MD [facility] [place] [address] Traumatic brain injury, sequela; Abnormal involuntary movements(131.0) [...] access to your electronic medical record at [facility] and the ability to communicate with [...] the instructions. Here is your activation code: [email or web address] Expires: 03/26/2014 12:29 PM Remember, my[facility] is NOT for urgent needs! Always dial 911 for medical emergencies. documented in this encounter Procedure Notes * Donnell Dotson MD - 02/09/2014 2:59 PM EDTAssociated Order(s): INTRATHECAL PUMP REPROGRAMMING Pre-Procedure Diagnose(s): Abnormal involuntary movements(781.0) Patient and mother coming today. Since he was last seen, the orthopedic surgeons and the rest of the team at [facility] have agreed that she no longer needs the intrathecal baclofen. She like to be tapered off the baclofen before the pump is basically no longer effective, 3 months from now. Looking at the [employer] website and calling the local [employer] baclofen pump group sales representative, we decided to decrease her [...] PM EST Office [place] [address] Hollie Ambriz MD [facility] [place] [address] documented as of this encounter Procedures Procedure [...] and the rest of the team at [facility] have agreed that she no longer needs the intrathecal baclofen. She like to be tapered off the baclofen before the pump is basically no longer effective, 3 months from now. Looking at the [employer] website and calling the local [employer] baclofen pump group sales representative, we decided to decrease her [...] and the rest of the team at [facility] haveagreed that she no longer needs the intrathecal baclofen. She like to betapered off the baclofen before the pump is basically no longer effective,3 months from now. Looking at the [employer] website and calling the local [employer] baclofenpump group sales representative, we decided to decrease her [...] movements documented in this encounter Care Teams Hourly Team Members Relationship Specialty Start Date End Date Naina Lindsey MD [address] [place] [address] PCP - General 03/19/10 08/25/16 documented as of this encounter
--- OUTSIDE RECORDS SUMMARY | 2023-12-07 15:28 | XMS_ITS | Encounter Summary ---
Author Organization [facility] Address [facility] [place] [place] [address] Care Team Providers Care Anesthesiologist Assistant Name Role Phone Naina Lindsey MD Primary Care Provider [phone] Reason for Visit * Reason Comments Follow-up PRE-SURGERY QUESTION S Encounter Details Date Type Department Care Team (Late st Contact Info) Description 05/03/2014 3:00 PM EST Follow-[place] [address] Jamaal Samuel MD [facility] [place] [address] Presence of intrathecal baclofen pump Discharge Disposition: [...] pump placed for increased extremity tone at [facility] in 2007 but mom believes the pump [...] PM EST Office [place] [address] Hollie Ambriz MD [facility] [place] [address] documented as of this encounter Visit Diagnoses Diagnosis Presence of intrathecal baclofen pump documented in this encounter Care Teams Anesthesiologist Assistant Relationship Specialty Start Date End Date Naina Lindsey MD [address] [place] [address] [place] [address] PCP - General 03/19/10 08/25/16 documented as of this encounter
--- OUTSIDE RECORDS SUMMARY | 2023-12-07 15:28 | XMS_ITS | Encounter Summary ---
Author Organization [facility] [place] [address] Care Team Providers Care Abalone Diver Name Role Phone Naina Lindsey MD Primary Care Provider [phone] Encounter Details Date Type Department Care Team (Late st Contact Info) Description 05/03/2014 Unscheduled Encounter [place] [address] Alek Sinha, SENIOR JAVA WEB APPLICATION DEVELOPER [facility] [place] [address] Spasticity Social History Tobacco Use Types Packs/Day [...] PM EST Office [place] [address] Hollie Ambriz MD [facility] [place] [address] documented as of this encounter Visit Diagnoses Diagnosis Spasticity Abnormal involuntary movements documented in this encounter Care Teams Abalone Diver Relationship Specialty Start Date End Date Naina Lindsey MD [address] [place] [address] PCP - General 03/19/10 08/25/16 documented as of this encounter
--- OUTSIDE RECORDS SUMMARY | 2023-12-07 15:28 | XMS_ITS | Encounter Summary ---
[place] [address] Care Team Providers Care Bandsaw Operator Name Role Phone Naina Lindsey MD Primary Care Provider [phone] Encounter Details Date Type Department Care Team (Late st Contact Info) Description 08/01/2012 Notes [place] [address] Chelsea Alva RN Social History Tobacco Use [...] PM EST Office [place] [address] Hollie Ambriz MD [facility] [place] [address] documented as of this encounter Visit Diagnoses Not on filedocumented in this encounter Care Teams Bandsaw Operator Relationship Specialty Start Date End Date Naina Lindsey MD [address] [place] [address] [place] [address] PCP - General 03/19/10 08/25/16 documented as of this encounter
--- OUTSIDE RECORDS SUMMARY | 2023-12-07 15:28 | XMS_ITS | Encounter Summary ---
Author Organization [facility] [place] [address] Care Team Providers Care Cable Testers Helper Name Role Phone Naina Lindsey MD Primary Care Provider [phone] Encounter Details Date Type Department Care Team (Late st Contact Info) Description 06/16/2013 Orders [place] [address] Christiano Floyd MD [facility] [place] [address] Social History Tobacco Use Types Packs/Day Years [...] Office [place] [address] Hollie Ambriz MD [facility] [place] [address] documented as of this encounter Visit Diagnoses Not on filedocumented in this encounter Care Teams Cable Testers Helper Relationship Specialty Start Date End Date Naina Lindsey MD [address] [place] [address] [place] [address] PCP - General 03/19/10 08/25/16 documented as of this encounter
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
--- OUTSIDE RECORDS SUMMARY | 2023-12-07 15:28 | XMS_ITS | Encounter Summary ---
Author Organization [facility] [place] [address] Care Team Providers Care Compliance Engineer Products Name Role Phone Naina Lindsey MD Primary Care Provider [phone] Reason for Referral * Consultation (Routine) - Closed Specialty Diagnoses / Procedures Referred By Contac t Referred To Contact Pain Management Diagnoses Scoliosis Jamar Dodd III, MD [facility] [place] [address] [facility] [address] [place] [address] Referral ID Status Reason Start Date Expiration Date V isits Requested Visits Authorized [id number] Closed Consult Only 12/16/2011 06/13/2012 1 1 * Consultation (Routine) - Complete - Unable to Contact Patient Specialty Diagnoses / Procedures Referred By Contac t Referred To Contact Pediatrics Diagnoses Scoliosis pre operative evaluation and to establish contact for future surgery [place] [facility] Jamar Whiting III, MD [facility] [place] [address] [facility] Pediatric[facility] [address] [place] [phone] Referral ID Status Reason Start Date Expiration Date Visits Requested Visits Authorized [id number] Complete - Unable to Contact Patient Consult Only 12/16/2011 06/13/2012 1 1 * Surgical (Routine) - Closed by system - Referral Specialty Diagnoses / Procedures Referred By Contac t Referred To Contact Anesthesiology Diagnoses Scoliosis Aquiles Smith MD [facility] [place] [address] [place] [address] Referral ID Status Reason Start Date Expiration Date Visits Requested Visits Authorized [id number] Closed by system - Referral Consult, Test & Treat 12/16/2011 06/13/2012 1 1 Reason for Visit * Reason Comments Follow Up Surgery Bilat. Hip DOS 2010 Encounter Details Date Type Department Care Team (Late st Contact Info) Description 12/16/2011 1:30 PM EDT Office Visit Orthopaedics at [place] [phone] Aquiles Smith MD [facility] [place] [address] Scoliosis (Primary Dx) Discharge Disposition: Home Social [...] PM EST Office [place] [address] Hollei Ambriz MD [facility] [place] [address] Scheduled Referrals Name Type Priority Associated Diagnoses Order Schedule REFERRAL TO GENERAL ANESTHESIOLOGY Outpatient Referral Routine Scoliosis Ordered: 12/16/2011 REFERRAL TO PEDIATRICS Outpatient Referral Routine Scoliosis Ordered: 12/16/2011 REFERRAL TO PAIN CLINIC Outpatient Referral Routine Scoliosis Ordered: 12/16/2011 documented as of this encounter Visit Diagnoses Diagnosis Scoliosis- Primary Scoliosis (and kyphoscoliosis), idiopathic documented in this encounter Care Teams Compliance Engineer Products Relationship Specialty Start Date End Date Naina Lindsey MD [address] [place] [address] PCP - General 03/19/10 08/25/16 documented as of this encounter
--- OUTSIDE RECORDS SUMMARY | 2023-12-07 15:28 | XMS_ITS | Encounter Summary ---
Author Organization [facility] [place] [address] Care Team Providers Care Luncheonette Operator Name Role Phone Naina Lindsey MD Primary Care Provider [phone] Encounter Details Date Type Department Care Team (Latest Contact Info) Description 01/12/2012 11:15 AM EDT Procedure [place] [phone] Bigg Dunbar MD [facility] [place] [address] Abnormal involuntary movements (Primary Dx) Discharge Disposition: [...] Pump Reprogramming or Adjustment Tana S Dirk [id number] Date of Programming/Adjustment: January 12, 2012 Primary Cpas: Dr. Lara Top Coater: Dr. Dunbar Reason for Reprogramming or Adjustment: Refill Rate Adjustment: No Diagnosis: Spasticity Concomitant Medical Problems: Telemetry Pre-programming Reading: Drug: Baclofen Concentration: 1000 mcg/ml Dose Delivery per day: 195.1 mcg/day Infusion Mode: simple continuous Telemetry Post-programming Reading: Drug: Baclofen Concentration: 1000 mcg/ml Dose Delivery per day: 195.1 mcg/day Infusion Mode: simple continuous Pump Capacity: [] 20 ml [xxx] 40 ml Expected [place] Volume this visit: 4 ml Actual [place] Volume this visit: 5 ml Medication or [...] into the pump according to the software installer's directions without difficulty. There was no evidence [...] Farhana Lara MD Fellow, Pain Medicine Pager [phone] documented in this encounter Miscellaneous Notes * Miscellaneous - Delbert, Box Maker Wood - 01/15/2012 4:53 PM EDT documented in this encounter Plan of Treatment Upcoming Encounters Date Type Department Care Team (Late st Contact Info) Description 06/02/2024 12:30 PM EST Office Visit Infectious Disease at [facility] [place] [address] Hollie Ambriz MD [facility] [place] [address] documented as of this encounter Procedures Procedure Name Priority Date/Time Associated Diagnosis Comments INTRATHECAL PUMP REFILL Routine 01/12/2012 12:44 PM EDT Abnormal involuntary movements documented in this encounter Results * INTRATHECAL PUMP REFILL (01/12/2012 12:44 PM EDT) Narrative Farhana Lara - 01/12/2012 12:44 PM EDT Pain Medicine Intrathecal Pump Reprogramming or Adjustment Tana Cavazos [id number] Date of Programming/Adjustment: January 12, 2012 Primary Cpas: ??Dr. Lara ?? Top Coater: ??Dr. Dunbar Reason for Reprogramming or Adjustment: [...] [] 20 ml [xxx] 40 ml Expected [place] Volume this visit: 4 ml Actual [place] Volume this visit: 5 ml Medication or [...] drapes were applied as provided with the [employer] refill kit. A 22 gauge Persaud non-coring [...] into the pump according to the software installer's directions without difficulty. There was no evidence [...] Farhana Lara MD Fellow, Pain Medicine Pager [phone] Procedure Note Farhana Lara - 01/12/2012 12:43 PM EDT Pain Medicine Intrathecal Pump Reprogramming or Adjustment Tana Hayes Dirk [id number] Date of Programming/Adjustment: January 12, 2012 Primary Cpas: Dr. Lara Top Coater: Dr. Dunbar Reason for Reprogramming or Adjustment: Refill Rate Adjustment: No Diagnosis: Spasticity Concomitant Medical Problems: Telemetry Pre-programming Reading: Drug: Baclofen Concentration: 1000 mcg/ml Dose Delivery per day: 195.1 mcg/day Infusion Mode: simple continuous Telemetry Post-programming Reading: Drug: Baclofen Concentration: 1000 mcg/ml Dose Delivery per day: 195.1 mcg/day Infusion Mode: simple continuous Pump Capacity: [] 20 ml [xxx] 40 ml Expected [place] Volume this visit: 4 ml Actual [place] Volume this visit: 5 ml Medication or [...] Sterile drapes were applied as provided withthe [employer] refill kit. A 22 gauge Persaud non-coring [...] Farhana Lara MD Fellow, Pain Medicine Pager [phone] Bigg Dunbar MD PROCEDURE/MINOR S URGICAL ORDERABLES [...] and Dose: Baclofen 1000 mcg/ml solution Lot [id number] Given 01/12/2012 12:38 PM EDT 1 each documented in this encounter Care Teams Luncheonette Operator Relationship Specialty Start Date End Date Naina Lindsey MD [address] [facility] [place] [address] PCP - General 03/19/10 08/25/16 documented as of this encounter
--- OUTSIDE RECORDS SUMMARY | 2023-12-07 15:28 | XMS_ITS | Encounter Summary ---
Author Organization [facility] [place] [address] Care Team Providers Care Security Technician Name Role Phone Naina Lindsey MD Primary Care Provider [phone] Encounter Details Date Type Department Care Team (Late st Contact Info) Description 05/11/2014 7:31 AM EST Anesthesia [place] [phone] Danielle Kwan MD [facility] [place] [address] Anesthesia Record Procedure Summary Procedure Name Responsible [...] 0731; metacarpal vein right (top of hand); [id number] catheter system; 22 gauge; Delmer; 05/12/14; 141605/11/14 [...] HEAD, BILATERAL performed by BARRERA OLIVER [facility] MAIN OR ??? Apply of hip casts, two legs 08/15/2010 CAST APPLICATION, HIP SPICA, BOTH LEGS performed by BARRERA OLIVER at [facility] MAIN OR ??? Removal deep implant 08/15/2010 REMOVAL IMPLANT, DEEP, BRUNO performed by BARRERA OLIVER at [facility] MAIN OR ??? Osteotomy femur shaft/supracondy 08/15/2010 ??OSTEOTOMY, FEMUR SHAFT OR SUPRACONDYLAR W/O FIXATION performed by BARRERA OLIVER at [facility] MAIN OR History Substance Use Topics [...] Assessment: Pulmonary Assessment: Dental Assessment: [facility] Assessment: Anesthesia Plan: ASA 2 general, with [...] PM EST Office Visit [facility] Disease [facility] [place] [phone] Hollie Ambriz MD [facility] INFECTIOUS [place] [address] documented as of this encounter Visit Diagnoses [...] mg documented in this encounter Care Teams Security Technician Relationship Specialty Start Date End Date Naina Lindsey MD [address] [place] [address] PCP - General 03/19/10 08/25/16 documented as of this encounter
--- OUTSIDE RECORDS SUMMARY | 2023-12-07 15:28 | XMS_ITS | Encounter Summary ---
Author Organization [facility] Address [facility] [place] [address] Care Team Providers Care Staff Certified Nurse Midwife Name Role Phone Naina Lindsey MD Primary Care Provider [phone] Reason for Referral * Consultation (Routine) - Closed Specialty Diagnoses / Procedures Referred By Contac t Referred To Contact Pediatric Neurosurgery Diagnoses Baclofen pump failure, initial encounter Donnell Dotson MD [facility] [place] [address] Jamaal Samuel MD [facility] [place] [address] Referral ID Status Reason Start Date Expiration Date V isits Requested Visits Authorized [id number] Closed Consult, Test & Treat 02/15/2014 08/14/2014 1 1 Encounter Details Date Type Department Care Team (Late st Contact Info) Description 02/15/2014 Orders [place] [address] Donnell Dotson MD [facility] CL[facility] [place] [id number] Baclofen pump failure, initial encounter Social History [...] PM EST Office [place] [address] Hollie Ambriz MD [facility] [place] [address] Scheduled Referrals Name Type Priority Associated Diagnoses Order Schedule Referral to Pediatric Neurosurgery Outpatient Referral Routine Baclofen pump failure, initial encounter Ordered: 02/15/2014 documented as of this encounter Visit Diagnoses Diagnosis Baclofen pump failure, initial encounter documented in this encounter Care Teams Staff Certified Nurse Midwife Relationship Specialty Start Date End Date Naina Lindsey MD [address] [place] [address] PCP - General 03/19/10 08/25/16 documented as of this encounter
--- OUTSIDE RECORDS SUMMARY | 2023-12-07 15:28 | XMS_ITS | Encounter Summary ---
Author Organization [facility] Address [place] [address] Care Team Providers Care Crop Supervisor Name Role Phone Lorna Bal APRN Primary Care Provider [phone] Encounter Details Date Type Department Care Team (Late st Contact Info) Description 12/21/2013 Interpretation [place] [phone] Chuckie Mayfield MD [facility] [place] [address] Social History Tobacco Use Types Packs/Day Years [...] PM EST Office [place] [address] Hollie Ambriz MD [facility] [place] [address] documented as of this encounter Procedures Procedure Name Priority Date/Time Associated Diagnosis Comments FILM LIBRARY STORAGE ONLY DX WRIST Routine 12/21/2013 1:40 PM EDT documented in this encounter Results * Film Library- Storage Only DX Wrist (12/21/2013 1:40 PM EDT) 08/10/2023 3:14 PM EDT Narrative [facility] - 08/10/2023 3:14 PM EDT This exam is auto-finalizing. It's purpose is for storage only. Chuckie Mayfield MD IMG FILM LIBRARY ORD ERABLES [place], [place] documented in this encounter Visit Diagnoses [...] documented as of this encounter Care Teams Crop Supervisor Relationship Specialty Start Date End Date Lorna Bal APRN [address] [place] [address] PCP - General Family Medicine 05/27/18 documented as of this encounter
--- OUTSIDE RECORDS SUMMARY | 2023-12-07 15:28 | XMS_ITS | Encounter Summary ---
Author Organization Formerly [facility] [place] [address] Care Team Providers Care Forge Operator Name Role Phone Naina Lindsey MD Primary Care Provider [phone] Reason for Visit * Reason Comments Pain Management Encounter Details Date Type Department Care Team (Latest Contact Info) Description 02/28/2014 4:30 PM EST Procedure [place] [phone] Donnell Dotson MD [facility] [place] [address] Karen Early [facility] [place] [address] Traumatic brain injury, sequela (Primary Dx) Discharge [...] 02/28/2014 4:58 PM EST Tana Cavazos 02/28/2014 [id number] Intrathecal Pump Visit Tana Cavazos presents today [...] PM EST Office Visit [place] [address] Hollie Ambriz MD [facility] [place] [address] documented as of this encounter Visit Diagnoses Diagnosis Traumatic brain injury, sequela- Primary documented in this encounter Care Teams Forge Operator Relationship Specialty Start Date End Date Naina Lindsey MD [address] [place] [address] [place] [address] PCP - General 03/19/10 08/25/16 documented as of this encounter
--- OUTSIDE RECORDS SUMMARY | 2023-12-07 15:28 | XMS_ITS | Encounter Summary ---
Author Organization [facility] [place] [address] Care Team Providers Care Clinical Research Administrator Name Role Phone Naina Lindsey MD Primary Care Provider [phone] Reason for Visit * Reason Comments Cerebral Palsy Encounter Details Date Type Department Care Team (Latest Contact Info) Description 07/11/2011 8:30 AM EDT Procedure [place] [phone] Yudelka Coyne MD [facility] [place] [address] Spasticity (Primary Dx); Abnormal involuntary movements Discharge [...] provided the care. Christiana Woods DO [facility] PAIN [facility]NAG[facility] [place] [address] Dept: [phone] * Yudelka Coyne MD - 07/11/2011 10:56 AM EDT INTRATHECAL PUMP REFILL PROCEDURE NOTE WITH REPROGRAMMING Primary Manager Actuarial: Dr. Steffany Coyne Street Supervisor: Lucia Mazariegos LPN Reason for Reprogramming: refill [...] Empty syringe concentration verified by seam checker: no If concentration of drug is [...] drapes were applied as provided with the [employer] refill kit. A 22 gauge Persaud non-coring [...] instilled into the pump according to the engineer technical staff's directions without difficulty. There was no evidence [...] PM EST Office [place] [address] Hollie Ambriz MD [facility] [place] [address] Scheduled Orders Name Type Priority Associated Diagnoses [...] in this encounter Care Teams Clinical Research Administrator Relationship Specialty Start Date End Date Naina Lindsey MD [address] [place] [address] PCP - General 03/19/10 08/25/16 documented as of this encounter
--- OUTSIDE RECORDS SUMMARY | 2023-12-07 15:28 | XMS_ITS | Encounter Summary ---
Author Organization [facility]ly [facility] [place] [address] Care Team Providers Care Floor Nurse Name Role Phone Naina Lindsey MD Primary Care Provider [phone] Reason for Visit * Reason Onset Date Comments Blindness 12/27/2011 Encounter Details Date Type Department Care Team (Late st Contact Info) Description 12/27/2011 Telephone [place] [address] Aquiles Smith MD [facility] [place] [address] Blindness Social History Tobacco Use Types Packs/Day [...] PM EST Office [place] [address] Hollie Ambriz MD [facility] [place] [address] documented as of this encounter Visit Diagnoses Not on filedocumented in this encounter Care Teams Floor Nurse Relationship Specialty Start Date End Date Naina Lindsey MD [address] [place] [address] [place] [address] PCP - General 03/19/10 08/25/16 documented as of this encounter
--- OUTSIDE RECORDS SUMMARY | 2023-12-07 15:28 | XMS_ITS | Encounter Summary ---
Author Organization [facility]ly [facility] Address [facility] [place] [address] Care Team Providers Care Commercial Journeyman Electrician Name Role Phone Naina Lindsey MD Primary Care Provider [phone] Encounter Details Date Type Department Care Team (Latest Contact Info) Description 12/16/2011 12:15 PM EDT - 12/16/2011 11:59 PM EDT Hospital Encounter XRay at [address] [place] [address] CLINIC, Joesph Sheikh Jr., MD [facility] [place] [address] Aquiles Smith MD [facility] [place] [address] Scoliosis Discharge Disposition: Home Social History Tobacco [...] PM EST Office [place] [address] Hollie Ambriz MD [facility] [place] [address] documented as of this encounter Procedures Procedure [...] idiopathic documented in this encounter Care Teams Commercial Journeyman Electrician Relationship Specialty Start Date End Date Naina Lindsey MD [address] [place] [address] [place] [address] PCP - General 03/19/10 08/25/16 documented as of this encounter
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
--- OUTSIDE RECORDS SUMMARY | 2023-12-07 15:28 | XMS_ITS | Encounter Summary ---
Author Organization [facility] [place] [address] Care Team Providers Care Nuclear Physician Name Role Phone Naina Lindsey MD Primary Care Provider [phone] Reason for Visit * Reason Onset Date Comments Medication Refill 11/08/2013 Encounter Details Date Type Department Care Team (Late st Contact Info) Description 11/08/2013 Ref[place] [address] Aida Carey, PLANT FACILITIES TECHNICIAN Social History Tobacco Use Types Packs/Day Years [...] PM EST Office [place] [address] Hollie Ambriz MD [facility] [place] [address] documented as of this encounter Visit Diagnoses Not on filedocumented in this encounter Care Teams Nuclear Physician Relationship Specialty Start Date End Date Naina Lindsey MD [address] [place] [address] PCP - General 03/19/10 08/25/16 documented as of this encounter
--- OUTSIDE RECORDS SUMMARY | 2023-12-07 15:28 | XMS_ITS | Encounter Summary ---
Author Organization [facility] [place] [address] Care Team Providers Care Tax Lawyer Name Role Phone Naina Lindsey MD Primary Care Provider [phone] Reason for Visit * Reason Comments Pain Pain, Chronic Encounter Details Date Type Department Care Team (Latest Contact Info) Description 03/15/2014 4:45 PM EST Procedure [place] [address] Donnell Dotson MD [facility] [place] [address] Presence of intrathecal baclofen pump; Abnormal involuntary movements(161.0) Discharge Disposition: Home Social History Tobacco Use [...] 25 mcg per day. Donnell Dotson MD C T Tech of Anesthesiology [facility] documented in this encounter Plan of Treatment Upcoming Encounters Date Type Department Care Team (Late st Contact Info) Description 06/02/2024 12:30 PM EST Office [place] [address] Hollie Ambriz MD [facility] [place] [address] documented as of this encounter Procedures Procedure [...] 25 mcg per day. Donnell Dotson MD C T Tech of Anesthesiology [facility] Donnell Dotson MD PROCEDURE/MINOR SURG ICAL ORDERABLES documented in this encounter Visit Diagnoses Diagnosis Presence of intrathecal baclofen pump Abnormal involuntary movements(781.0) Abnormal involuntary movements documented in this encounter Care Teams Tax Lawyer Relationship Specialty Start Date End Date Naina Lindsey MD [address] [place] [address] PCP - General 03/19/10 08/25/16 documented as of this encounter
--- OUTSIDE RECORDS SUMMARY | 2023-12-07 15:28 | XMS_ITS | Encounter Summary ---
Author Organization [facility] Address [facility] [place] [address] Care Team Providers Care Facilities Specialist Name Role Phone Lorna Bal APRN Primary Care Provider [phone] Encounter Details Date Type Department Care Team (Late st Contact Info) Description 12/21/2013 Interpretation [place] [address] Chuckie Mayfield MD [facility] [place] [address] Social History Tobacco Use Types Packs/Day Years [...] PM EST Office [place] [address] Hollie Ambirz MD [facility] [place] [address] documented as of this encounter Procedures Procedure [...] Mayfield MD IMG FILM LIBRARY ORD ERABLES [place], [place] documented in this encounter Visit Diagnoses [...] documented as of this encounter Care Teams Facilities Specialist Relationship Specialty Start Date End Date Lorna Bal APRN [address] [place] [address] PCP - General Family Medicine 05/27/18 documented as of this encounter
--- OUTSIDE RECORDS SUMMARY | 2023-12-07 15:28 | XMS_ITS | Encounter Summary ---
Author Organization [facility] [place] [address] Care Team Providers Care Bulldozer/Loader/Compactor/Scraper Name Role Phone Naina Lindsey MD Primary Care Provider [phone] Encounter Details Date Type Department Care Team (Late st Contact Info) Description 06/30/2011 Orders Only [place] [address] Boyd Dillon MD [facility] [place] [address] Spasticity (Primary Dx) Social History Tobacco Use [...] [place] [address] Hollie Ambriz MD [facility] [place] [address] documented as of this encounter Visit Diagnoses Diagnosis Spasticity- Primary Abnormal involuntary movements documented in this encounter Care Teams Bulldozer/Loader/Compactor/Scraper Relationship Specialty Start Date End Date Naina Lindsey MD [address] [place] [address] [place] [address] PCP - General 03/19/10 08/25/16 documented as of this encounter
--- OUTSIDE RECORDS SUMMARY | 2023-12-07 15:28 | XMS_ITS | Encounter Summary ---
Author Organization [facility] [place] [address] Care Team Providers Care Equipment Operator/Laborer/Supervisor Name Role Phone Naina Lindsey MD Primary Care Provider [phone] Encounter Details Date Type Department Care Team (Latest Contact Info) Description 05/03/2014 4:15 PM EST Procedure [place] [address] Donnell Dotson MD [facility] [place] [address] Presence of intrathecal baclofen pump Discharge Disposition: [...] Jamaal Samuel relatively soon. Donnell Dotson MD Pharmacy Technician Trainee of Anesthesiology [facility] documented in this encounter Plan of Treatment Upcoming Encounters Date Type Department Care Team (Late st Contact Info) Description 06/02/2024 12:30 PM EST Office Visit [place] [address] Hollie Ambriz MD [facility] [place] [address] documented as of this encounter Visit Diagnoses Diagnosis Presence of intrathecal baclofen pump documented in this encounter Care Teams Equipment Operator/Laborer/Supervisor Relationship Specialty Start Date End Date Naina Lindsey MD [address] [place] [address] [place] [address] PCP - General 03/19/10 08/25/16 documented as of this encounter
--- OUTSIDE RECORDS SUMMARY | 2023-12-07 15:28 | XMS_ITS | Encounter Summary ---
Author Organization [facility] [place] [address] Care Team Providers Care Direct Marketing Intern Name Role Phone Naina Lindsey MD Primary Care Provider [phone] Encounter Details Date Type Department Care Team (Late st Contact Info) Description 07/08/2012 Orders [place] [phone] Aniket Heredia MD [facility] [place] [address] Spasticity (Primary Dx) Social History [...] PM EST Office [place] [phone] Hollie Ambriz MD [facility] [place] [address] documented as of this encounter Visit Diagnoses Diagnosis Spasticity- Primary Abnormal involuntary movements documented in this encounter Care Teams Direct Marketing Intern Relationship Specialty Start Date End Date Naina Lindsey MD [address] [place] [address] PCP - General 03/19/10 08/25/16 documented as of this encounter
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
--- OUTSIDE RECORDS SUMMARY | 2023-12-07 15:28 | XMS_ITS | Encounter Summary ---
Author Organization [facility] [place] [address] Care Team Providers Care Stack Clerk Name Role Phone Naina Lindsey MD Primary Care Provider [phone] Reason for Visit * Reason Comments Pain Management Encounter Details Date Type Department Care Team (Latest Contact Info) Description 04/25/2014 4:15 PM EST Procedure visit [place] [phone] Donnell Dotson MD [facility] [place] [address] Spasticity; Presence of intrathecal baclofen pump; Cerebral [...] PM EST Office [place] [address] Hollie Ambriz MD [facility] [place] [address] documented as of this encounter Procedures Procedure [...] unspecified documented in this encounter Care Teams Stack Clerk Relationship Specialty Start Date End Date Naina Lindsey MD [address] [place] [address] PCP - General 03/19/10 08/25/16 documented as of this encounter
--- OUTSIDE RECORDS SUMMARY | 2023-12-07 15:29 | XMS_ITS | Encounter Summary ---
Author Organization [facility] [place] [address] Care Team Providers Care Quality Assurance Representative Name Role Phone Naina Lindsey MD Primary Care Provider [phone] Reason for Referral * Physical Therapy (Routine) - Complete - Patient Will Schedule External Appt Specialty Diagnoses / Procedures Referred By Karlo t Referred To Contact Physical Therapy Diagnoses Developmental delay Yas Ramirez MD [facility] [place] [address] Referral ID Status Reason Start Date Expiration Date Visits Requested Visits Authorized [id number] Complete - Patient Will Schedule External Appt Evaluate and Treat 09/24/2010 03/23/2011 1 1 Reason for Visit * Reason Comments Follow Up Surgery spica cast Encounter Details Date Type Department Care Team (Late st Contact Info) Description 09/24/2010 2:20 PM EDT [place] [phone] Yas Ramirez MD [facility] ORTHOPAEDIC SURGERY [place], [place] [address] Developmental delay (Primary Dx); Traumatic brain injury [...] PM EST Office [place] [address] Hollie Ambriz MD [facility] [place] [address] Scheduled Referrals Name Type Priority Associated Diagnoses [...] hip documented in this encounter Care Teams Quality Assurance Representative Relationship Specialty Start Date End Date Naina Lindsey MD [address] [place] [address] [place] [address] PCP - General 03/19/10 08/25/16 documented as of this encounter
--- OUTSIDE RECORDS SUMMARY | 2023-12-07 15:29 | XMS_ITS | Encounter Summary ---
Author Organization [facility] [place] [address] Care Team Providers Care Thermodynamics Professor Name Role Phone Naina Lindsey MD Primary Care Provider [phone] Encounter Details Date Type Department Care Team (Late st Contact Info) Description 04/15/2011 Orders [place] [address] Margaux Godfrey MD [facility] [address] PAIN [facility]INIC [place], [place] [id number] Spasticity (Primary Dx) Social History Tobacco Use [...] PM EST Office Visit [place] [address] Hollie Ambriz MD [facility] [place] [address] documented as of this encounter Visit Diagnoses Diagnosis Spasticity- Primary Abnormal involuntary movements documented in this encounter Care Teams Thermodynamics Professor Relationship Specialty Start Date End Date Naina Lindsey MD [address] [place] [address] PCP - General 03/19/10 08/25/16 documented as of this encounter
--- OUTSIDE RECORDS SUMMARY | 2023-12-07 15:29 | XMS_ITS | Encounter Summary ---
Author Organization [facility] [place] [address] Care Team Providers Care Music Rehabilitation Therapist Name Role Phone Naina Lindsey MD Primary Care Provider [phone] Encounter Details Date Type Department Care Team (Late st Contact Info) Description 07/11/2010 9:00 AM EDT [place] [phone] Andrade Gordon MD [facility] [place] [address] Discharge Disposition: Home Social History Tobacco Use [...] PM EST Office Visit [place] [address] Hollie Ambriz MD [facility] [place] [address] documented as of this encounter Visit Diagnoses Not on filedocumented in this encounter Care Teams Music Rehabilitation Therapist Relationship Specialty Start Date End Date Naina Lindsey MD [address] [place] [address] PCP - General 03/19/10 08/25/16 documented as of this encounter
--- OUTSIDE RECORDS SUMMARY | 2023-12-07 15:29 | XMS_ITS | Encounter Summary ---
[place] [address] Care Team Providers Care Maintenance Of Way Clerk Name Role Phone Naina Lindsey MD Primary Care Provider [phone] Encounter Details Date Type Department Care Team (Late st Contact Info) Description 12/17/2010 [place] [address] Mony Fierro, RN Social History [...] PM EST Office [place] [address] Hollie Ambriz MD [facility] [place] [address] documented as of this encounter Visit Diagnoses Not on filedocumented in this encounter Care Teams Maintenance Of Way Clerk Relationship Specialty Start Date End Date Naina Lindsey MD [address] [place] [address] PCP - General 03/19/10 08/25/16 documented as of this encounter
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
--- OUTSIDE RECORDS SUMMARY | 2023-12-07 15:29 | XMS_ITS | Encounter Summary ---
Author Organization [facility] Address [facility] [place] [address] Care Team Providers Care Take Out Waitress Name Role Phone Naina Lindsey MD Primary Care Provider [phone] Encounter Details Date Type Department Care Team (Latest Contact Info) Description 09/24/2010 1:20 PM EDT - 09/24/2010 11:59 PM EDT Hospital Encounter XRay at [address] [place] [address] Muscle spasticity Social History Tobacco Use Types [...] Visit [place] [address] Hollie Ambriz MD [facility] [place] [address] documented as of this encounter Procedures Procedure [...] muscle documented in this encounter Care Teams Take Out Waitress Relationship Specialty Start Date End Date Naina Lindsey MD [address] [place] [address] PCP - General 03/19/10 08/25/16 documented as of this encounter
--- OUTSIDE RECORDS SUMMARY | 2023-12-07 15:29 | XMS_ITS | Encounter Summary ---
Author Organization [facility] Address [facility] [place] [address] Care Team Providers Care Cleaning Supervisor Name Role Phone Naina Lindsey MD Primary Care Provider [phone] Reason for Visit * Reason Comments Foot Swelling Encounter Details Date Type Department Care Team (Late st Contact Info) Description 11/04/2010 3:05 PM EDT [place] [id number] Barrera Oliver MD [facility] [place] [address] Acquired dysplasia of hip, bilateral; Edema leg; [...] 5:04 AM EDT HISTORY OF PRESENT ILLNESS: Tnaa is a young woman with neuromotor dysfunction [...] will be constituted in a cast and edger technician with whom I spoke did not [...] PM EST Office [place] [address] Hollie Ambriz MD [facility] [place] [address] documented as of this encounter Results * Duplex for DVT, Leg, Unilat (11/04/2010 3:55 PM EDT) VB Text Report Department: Vascular Surgery Lab Patient: [id number] (TANA SHELTON) CPT Code: 92355 ICD-9: 729.81 Referring Physician: BARRERA OLIVER Indication: [...] consciousness documented in this encounter Care Teams Cleaning Supervisor Relationship Specialty Start Date End Date Naina Lindsey MD [address] [place] [address] PCP - General 03/19/10 08/25/16 documented as of this encounter
--- OUTSIDE RECORDS SUMMARY | 2023-12-07 15:29 | XMS_ITS | Referral Summary ---
Author Organization [facility] Address [address] [place] [address] Care Team Providers Care Transmission Engineer Name Role Phone César Robert MD, Naina Primary Care Provider [phone] Encounters Date Type Department Care Team Description 12/04/2023 Lab Requisition [facility] Pathology & Laboratory Medicine - [facility] [address] [place] [address] Outr Resulting Lab, Provider from Last 3 [...] appointments, call Yahaira dual living providers Kavita: [phone]. No additional problems on file Social History Tobacco Use Types Packs/Day Years Used Date Smoking Tobacco: Never Assessed Interpersonal Safety Answer Date Record ed Physically Hurt Never 11/27/2019 Verbally Threaten Not on file 11/27/2019 Sex and Gender Information Value Date Recorded Sex Assigned at Not on file Gender Identity Not on file Sexual Orientation Not on file Plan of Treatment Not on file Procedures Procedure Name Priority Date/Time Associated Diagnosis Comments HIGH SENSITIVITY C-REACTIVE PROTEIN (CARDIOVASCULAR DISEASE) Routine 12/04/2023 10:00 EDT from Last 3 Months Results * HIGH SENSITIVITY C-REACTIVE PROTEIN (CARDIOVASCULAR DISEASE) (12/04/2023 10:00 EDT) High Sensitivity CRP >15.00 See Note mg/L 12/04/2023 18:03 EDT [facility] Comment: Suggest ordering C-Reactive Protein Reference Range: ??Low Risk: ? <1.0 mg/L ??Average Risk: ?? 1.0 - 3.0 mg/L ??High Risk: ?>3.0 mg/L ??Indeterminate*: >10.0 mg/L ??*May be an indication of another source of inflammation or infection Blood VENOUS BLOOD / Unknown 12/04/2023 10:00 EDT 12/04/2023 17:37 EDT Provider Outr Resulting Lab CHEMISTRY & BLOOD GAS ORDERABLES Performing Organization Address [facility]/State/[facility] Co de Phone Number [facility] [address] [place] [address] from Last 3 Months Care Teams Transmission Engineer Relationship Specialty Start Date End Date Naina Lindsey MD [address] [place] [address] PCP - General 02/13/15
--- OUTSIDE RECORDS SUMMARY | 2023-12-07 15:29 | XMS_ITS | Encounter Summary ---
Author Organization [facility] [place] [address] Care Team Providers Care Treasurer Name Role Phone Naina Lindsey MD Primary Care Provider [phone] Reason for Referral * Consultation (Routine) - Complete - Patient Will Schedule External Appt Specialty Diagnoses / Procedures Referred By Contac t Referred To Contact Orthotics Diagnoses Cerebral palsy Yas Ramirez MD [facility] [place] [address] Referral ID Status Reason Start Date Expiration Date Visits Requested Visits Authorized [id number] Complete - Patient Will Schedule External Appt Assume Subset of Care 09/30/2010 03/29/2011 1 1 * Consultation (Routine) - Complete - Patient Will Schedule External Appt Specialty Diagnoses / Procedures Referred By Contac t Referred To Contact Orthotics Diagnoses Cerebral palsy Yas Ramirez MD [facility] [place] [address] Referral ID Status Reason Start Date Expiration Date Visits Requested Visits Authorized [id number] Complete - Patient Will Schedule External Appt Assume Subset of Care 09/30/2010 03/29/2011 1 1 Reason for Visit * Reason Comments Developmental Delay serial casting Encounter Details Date Type Department Care Team (Late st Contact Info) Description 09/30/2010 9:00 AM EDT Follow-Up Orthopaedics at [facility] [place] [address] Yas Ramirez MD [facility] [place] [address] Cerebral palsy (Primary Dx) Discharge Disposition: Home [...] encounter Miscellaneous Notes * Miscellaneous - Delbert Auxiliary Equipment Operator - 10/31/2010 9:10 AM EDT documented in this encounter Plan of Treatment Upcoming Encounters Date Type Department Care Team (Late st Contact Info) Description 06/02/2024 12:30 PM EST Office [place] [address] Hollie Ambriz MD [facility] DR INFECTIOUS DISEASE [place] [id number] Scheduled Referrals Name Type Priority Associated Diagnoses Orde r Schedule REFERRAL FOR ORTHOTICS Outpatient Referral Routine Cerebral palsy Ordered: 09/30/2010 REFERRAL FOR ORTHOTICS Outpatient Referral Routine Cerebral palsy Ordered: 09/30/2010 documented as of this encounter Visit Diagnoses Diagnosis Cerebral palsy- Primary Infantile cerebral palsy, unspecified documented in this encounter Care Teams Treasurer Relationship Specialty Start Date End Date Naina Lindsey MD [address] [place] [address] PCP - General 03/19/10 08/25/16 documented as of this encounter
--- OUTSIDE RECORDS SUMMARY | 2023-12-07 15:29 | XMS_ITS | Encounter Summary ---
Author Organization Formerly [facility] [place] [address] Care Team Providers Care Grommet Machine Operator Name Role Phone Naina Lindsey MD Primary Care Provider [phone] Encounter Details Date Type Department Care Team (Late st Contact Info) Description 08/13/2010 Orders [place] [phone] Yas Ramirez MD [facility] [place] [address] DDH (developmental dysplasia of the hip) (Primary [...] PM EST Office [place] [address] Hollie Ambriz MD [facility] [place] [address] documented as of this encounter Visit Diagnoses Diagnosis DDH (developmental dysplasia of the hip)- Primary Other congenital deformity of hip (joint) documented in this encounter Care Teams Grommet Machine Operator Relationship Specialty Start Date End Date Naina Lindsey MD [address] [place] [address] PCP - General 03/19/10 08/25/16 documented as of this encounter
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
--- OUTSIDE RECORDS SUMMARY | 2023-12-07 15:29 | XMS_ITS | Encounter Summary ---
Author Organization [facility] [place] [address] Care Team Providers Care Riveter Automobile Brakes Name Role Phone Naina Lindsey MD Primary Care Provider [phone] Encounter Details Date Type Department Care Team (Late st Contact Info) Description 02/03/2011 Orders [place] [address] Yas Ramirez MD [facility] [address] [place] [address] Acquired dysplasia of hip, bilateral; Scoliosis; Traumatic [...] PM EST Office [place] [address] Hollie Ambriz MD [facility] [place] [address] documented as of this encounter Visit Diagnoses Diagnosis Acquired dysplasia of hip, bilateral Other acquired deformities of hip Scoliosis Scoliosis (and kyphoscoliosis), idiopathic 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
--- OUTSIDE RECORDS SUMMARY | 2023-12-07 15:29 | XMS_ITS | Encounter Summary ---
Author Organization [facility] Address [facility] [place] [address] Care Team Providers Care Pipe Organ Mechanic Name Role Phone Naina Lindsey MD Primary Care Provider [phone] Encounter Details Date Type Department Care Team (Late st Contact Info) Description 08/13/2010 Abstract [place] [address] Yas Ramirez MD [facility] [place] [address] Social History Tobacco Use Types Packs/Day Years [...] Office [place] [phone] Hollie Ambriz MD [facility] [place] [address] documented as of this encounter Visit Diagnoses Not on filedocumented in this encounter Care Teams Pipe Organ Mechanic Relationship Specialty Start Date End Date Naina Lindsey MD [address] [place] [address] PCP - General 03/19/10 08/25/16 documented as of this encounter
--- OUTSIDE RECORDS SUMMARY | 2023-12-07 15:29 | XMS_ITS | Encounter Summary ---
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 Zaldivar Manufacturing Chief Engineer: Dr. Dillon Reason for Reprogramming: Refill/weaning Diagnosis: [...] instilled into the pump according to the accounting support specialist's directions without difficulty. There was no [...] medication. Nitin Zaldivar MD Fellow, Pain Medicine 5525 documented in this encounter Miscellaneous Notes * Miscellaneous - Delbert, Investigative Writer - 05/01/2011 2:01 PM EST documented in this encounter Plan of Treatment Upcoming Encounters Date Type Department Care Team (Late st Contact Info) Description 06/02/2024 12:30 PM EST Office Visit [place] [address] Hollie Ambriz MD [facility] [place] [address] documented as of this encounter Visit Diagnoses [...] each documented in this encounter Care Teams Sterile Supply Technician Relationship Specialty Start Date End Date Naina Lindsey MD [address] [place] [address] PCP - General 03/19/10 08/25/16 documented as of this encounter
--- OUTSIDE RECORDS SUMMARY | 2023-12-07 15:29 | XMS_ITS | Encounter Summary ---
Author Organization [facility] [place] [address] Care Team Providers Care Practical Nursing Faculty Name Role Phone Naina Lindsey MD Primary Care Provider [phone] Encounter Details Date Type Department Care Team (Late st Contact Info) Description 09/27/2010 Orders Only [place] [address] Yas Ramirez MD [facility] DR [place] [address] Muscle spasticity; Acquired dysplasia of hip, bilateral; [...] PM EST Office Visit Infectious [place] [address] Hollie Ambriz MD [facility] [place] [address] documented as of this encounter Visit Diagnoses Diagnosis Muscle spasticity Spasm of muscle Acquired dysplasia of hip, bilateral Other acquired deformities of hip 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
--- OUTSIDE RECORDS SUMMARY | 2023-12-07 15:29 | XMS_ITS | Encounter Summary ---
Author Organization [facility] [address] Care Team Providers Care Galvanizer Name Role Phone Naina Lindsey MD Primary Care Provider [phone] Encounter Details Date Type Department Care Team (Late st Contact Info) Description 08/19/2010 Orders Only [place] [address] Lucho Fields MD [facility] [place] [address] Social History Tobacco Use Types Packs/Day Years [...] PM EST Office Visit [place] [address] Hollie Ambriz MD [facility] [place] [address] documented as of this encounter Visit Diagnoses Not on filedocumented in this encounter Care Teams Galvanizer Relationship Specialty Start Date End Date Naina [place] [address] PCP - General 03/19/10 08/25/16 documented as of this encounter
--- OUTSIDE RECORDS SUMMARY | 2023-12-07 15:29 | XMS_ITS | Encounter Summary ---
Author Organization [facility] Address [address] [place] [address] Care Team Providers Care Car Wiper Name Role Phone César Robert MD, Naina Primary Care Provider [phone] Encounter Details Date Type Department Care Team (Late st Contact Info) Description 12/04/2023 Lab Requisition [facility] Pathology & Laboratory Medicine - [address] [id number] Outr Resulting Lab, Provider Social History Tobacco [...] PROTEIN (CARDIOVASCULAR DISEASE) Routine 12/04/2023 10:00 EDT documented in this encounter Results * HIGH SENSITIVITY C-REACTIVE PROTEIN (CARDIOVASCULAR DISEASE) (12/04/2023 10:00 EDT) High Sensitivity CRP >15.00 See Note mg/L 12/04/2023 18:03 EDT [facility] Comment: Suggest ordering C-Reactive Protein Reference Range: ??Low Risk: ? <1.0 mg/L ??Average Risk: ?? 1.0 - 3.0 mg/L ??High Risk: ?>3.0 mg/L ??Indeterminate*: >10.0 mg/L ??*May be an indication of another source of inflammation or infection Blood VENOUS BLOOD / Unknown 12/04/2023 10:00 EDT 12/04/2023 17:37 EDT Provider Outr Resulting Lab CHEMISTRY & BLOOD GAS ORDERABLES Performing Organization Address City/State/[facility] Co de Phone Number [facility] [address] [place] [address] documented in this encounter Visit Diagnoses Not on filedocumented in this encounter Care Teams Car Wiper Relationship Specialty Start Date End Date Naina Lindsey MD [address] [place] [address] PCP - General 02/13/15 documented as of this encounter
--- OUTSIDE RECORDS SUMMARY | 2023-12-07 15:29 | XMS_ITS | Encounter Summary ---
[place] [address] Care Team Providers Care Sterilization Specialist Name Role Phone Naina Lindsey MD Primary Care Provider [phone] Reason for Visit * Reason Onset Date Comments Other 03/14/2011 Encounter Details Date Type Department Care Team (Late st Contact Info) Description 03/14/2011 Telephone [place] [phone] Mony Fierro RN Other Social History Tobacco [...] this also with Bart Denis PT from [place] [facility] who has been unable to find a creative way to avoid this with her seating. Discussed with Dr. Ramirez who will evaluate at her appointment on 03/31. documented in this encounter Plan of Treatment Upcoming Encounters Date Type Department Care Team (Late st Contact Info) Description 06/02/2024 12:30 PM EST Office [place] [address] Hollie Ambriz MD [facility] [place] [address] documented as of this encounter Visit Diagnoses Not on filedocumented in this encounter Care Teams Sterilization Specialist Relationship Specialty Start Date End Date Naina Lindsey MD [address] [place] [address] [place] [address] PCP - General 03/19/10 08/25/16 documented as of this encounter
--- OUTSIDE RECORDS SUMMARY | 2023-12-07 15:29 | XMS_ITS | Encounter Summary ---
Author Organization [facility] Benjamin [facility] [place] [address] Care Team Providers Care Digital Research Analyst Name Role Phone Naina Lindsey MD Primary Care Provider Reason for Visit * Reason Onset Date Comments Other 11/11/2010 WANTED NOTES FRO M SURG Encounter Details Date Type Department Care Team (Late st Contact Info) Description 11/11/2010 Telephone [place] [phone] Yas Ramirez MD [facility] [place] [address] Other (WANTED NOTES FROM SURG) Social History [...] PM EST Office Visit [place] [address] Hollie Ambriz MD [facility] [place] [address] documented as of this encounter Visit Diagnoses Not on filedocumented in this encounter Care Teams Digital Research Analyst Relationship Specialty Start Date End Date Naina Lindsey MD [address] [place] [address] [place] [address] PCP - General 03/19/10 08/25/16 documented as of this encounter
--- OUTSIDE RECORDS SUMMARY | 2023-12-07 15:29 | XMS_ITS | Encounter Summary ---
Author Organization [facility] Address [facility] [place] [address] Care Team Providers Care Customer Operations Representative Name Role Phone Naina Lindsey MD Primary Care Provider [phone] Encounter Details Date Type Department Care Team (Late st Contact Info) Description 11/04/2010 4:00 PM EDT Office [place] [address] Gloria López, RVT Acquired dysplasia of hip, [...] PM EST Office [place] [address] Hollie Ambriz MD [facility] [address] documented as of this encounter Procedures Procedure Name Priority Date/Time Associated Diagnosis Comments DUPLEX FOR DVT, LEG, UNILAT Routine 11/04/2010 3:55 PM EDT Acquired dysplasia of hip, bilateral Edema leg documented in this encounter Results * Duplex for DVT, Leg, Unilat (11/04/2010 3:55 PM EDT) VB Text Report Department: Vascular Surgery Lab Patient: [id number] (TANA SHELTON) CPT Code: 16292 ICD-9: 729.81 Referring Physician: BARRERA OLIVER Indication: [...] Oliver MD VASCULAR ORDERABLES Performing Organization Address City/State/[facility] Co de Phone Number [facility] documented in this encounter Visit Diagnoses Diagnosis Acquired dysplasia of hip, bilateral Other acquired deformities of hip Edema leg Edema documented in this encounter Care Teams Customer Operations Representative Relationship Specialty Start Date End Date Naina Lindsey MD [address] [place] [address] [place] [address] PCP - General 03/19/10 08/25/16 documented as of this encounter"
--- OUTSIDE RECORDS SUMMARY | 2023-12-07 15:29 | XMS_ITS | Encounter Summary ---
Author Organization [facility] [place] [address] Care Team Providers Care Shingles Roofer Name Role Phone Naina Lindsey MD Primary Care Provider [phone] Encounter Details Date Type Department Care Team (Late st Contact Info) Description 06/12/2010 9:30 AM EST Follow-[place] [address] Yas Ramirez MD [facility] [place] [address] Discharge Disposition: Home Social History Tobacco Use [...] EST Office Visit [place] [address] Hollie Ambriz MD [facility] [place] [address] documented as of this encounter Visit Diagnoses Not on filedocumented in this encounter Care Teams Shingles Roofer Relationship Specialty Start Date End Date Naina Lindsey MD [address] [place] [address] PCP - General 03/19/10 08/25/16 documented as of this encounter
--- OUTSIDE RECORDS SUMMARY | 2023-12-07 15:29 | XMS_ITS | Encounter Summary ---
Author Organization [facility] [place] [address] Care Team Providers Care Automobile Service Station Attendant Name Role Phone Naina Lindsey MD Primary Care Provider [phone] Encounter Details Date Type Department Care Team (Late st Contact Info) Description 11/07/2010 Orders [place] [address]1000 Bigg Dunbar MD [facility] [place] [address] Spasticity (Primary Dx) Social History Tobacco Use [...] PM EST Office [place] [address] Hollie Ambriz MD [facility] [address] INF[place] [address] documented as of this encounter Visit Diagnoses Diagnosis Spasticity- Primary Abnormal involuntary movements documented in this encounter Care Teams Automobile Service Station Attendant Relationship Specialty Start Date End Date Naina Lindsey MD [address] [place] [address] PCP - General 03/19/10 08/25/16 documented as of this encounter
--- OUTSIDE RECORDS SUMMARY | 2023-12-07 15:29 | XMS_ITS | Encounter Summary ---
Author Organization [facility] [place] [address] Care Team Providers Care Motor Vehicles Inspector Name Role Phone Naina Lindsey MD Primary Care Provider [phone] Reason for Referral * Occupational Therapy (Routine) - Complete - Patient Will Schedule External Appt Specialty Diagnoses / Procedures Referred By Contac t Referred To Contact Occupational Therapy Diagnoses Acquired dysplasia of hip Scoliosis Traumatic brain injury Yas Ramirez MD [facility] DR [place] [address] Referral ID Status Reason Start Date Expiration Date Visits Requested Visits Authorized [id number] Complete - Patient Will Schedule External Appt Evaluate and Treat 01/02/2011 07/01/2011 1 1 * Physical Therapy (Routine) - Complete - Patient Will Schedule External Appt Specialty Diagnoses / Procedures Referred By Contac t Referred To Contact Physical Therapy Diagnoses Acquired dysplasia of hip Scoliosis Traumatic brain injury Yas Ramirez MD [facility] [place] [address] Referral ID Status Reason Start Date Expiration Date Visits Requested Visits Authorized [id number] Complete - Patient Will Schedule External Appt Evaluate and Treat 01/02/2011 07/01/2011 1 1 Encounter Details Date Type Department Care Team (Late st Contact Info) Description 01/02/2011 Orders Only Orthopaedics at [place] [phone] Yas Ramirez MD [facility] DR ORTHOPAEDIC [place] [address] Acquired dysplasia of hip, bilateral; Scoliosis; Traumatic [...] PM EST Office Visit Infectious Disease at [address] Hollie Ambriz MD [facility] DR INFECTIOUS [place] [address] Scheduled Referrals Name Type Priority Associated Diagnoses [...] consciousness documented in this encounter Care Teams Motor Vehicles Inspector Relationship Specialty Start Date End Date Naina Lindsey MD [address] [place] [address] [place] [address] PCP - General 03/19/10 08/25/16 documented as of this encounter
--- OUTSIDE RECORDS SUMMARY | 2023-12-07 15:29 | XMS_ITS | Encounter Summary ---
Author Organization [facility] [place] [address] Care Team Providers Care Soapstoner Name Role Phone Naina Lindsey MD Primary Care Provider [phone] Reason for Visit * Reason Comments Spasms Encounter Details Date Type Department Care Team (Late st Contact Info) Description 11/20/2010 12:45 PM EDT Follow-[place] [phone] Christiano Floyd MD [facility] [place] [address] Spastic quadriplegia (Primary Dx) Discharge Disposition: Home [...] 11/20/2010 1:2 7 PM EDT Growth Chart: [facility] (Girls, 2- 20 Years) documented in this encounter Progress Notes * Gaby Silva - 11/20/2010 3:00 PM EDT Pain Management Center Refill of Intrathecal Pump with Reprogramming Procedure Note Tana Robles Cavazos [id number] Date of Refill: 11/20/10 Primary Blow Down Operator: Dr. Silva Coil Winder Strap: Dr. Floyd Reason for Reprogramming: Refill Diagnosis: [...] instilled into the pump according to the pluck separator's directions without difficulty. There was no evidence [...] Office [place] [address] Hollie Ambriz MD [facility] [place] [address] documented as of this encounter Visit Diagnoses Diagnosis Spastic quadriplegia- Primary Quadriplegia, unspecified documented in this encounter Care Teams Soapstoner Relationship Specialty Start Date End Date Naina Lindsey MD [address] [place] [address] PCP - General 03/19/10 08/25/16 documented as of this encounter
--- OUTSIDE RECORDS SUMMARY | 2023-12-07 15:29 | XMS_ITS | Encounter Summary ---
Author Organization [facility] Address [facility] [place] [address] Care Team Providers Care Mule Packer Name Role Phone Naina Lindsey MD Primary Care Provider [phone] Encounter Details Date Type Department Care Team (Late st Contact Info) Description 08/15/2010 7:43 AM EDT Anesthesia Event [place] [address]1000 Erika Curtis MD [facility] DR [place] [address] Anesthesia Record Procedure Summary Procedure Name Responsible [...] patient, father and mother. Plan discussed with HANDY WORKER. documented in this encounter Miscellaneous Notes * [...] PM EST Office Visit [place] [address] Hollie Ambriz MD [facility] [place] [address] documented as of this encounter Visit Diagnoses Not on filedocumented in this encounter Care Teams Mule Packer Relationship Specialty Start Date End Date Naina Lindsey MD [address] [place] [address] [place] [address] PCP - General 03/19/10 08/25/16 documented as of this encounter
--- OUTSIDE RECORDS SUMMARY | 2023-12-07 15:29 | XMS_ITS | Encounter Summary ---
Author Organization [facility] [place] [place] [address] Care Team Providers Care Hris Specialist Name Role Phone Naina Lindsey MD Primary Care Provider [phone] Reason for Referral * Consultation (Routine) - Complete - Patient Will Schedule External Appt Specialty Diagnoses / Procedures Referred By Contac t Referred To Contact Orthotics Diagnoses Edema leg Scoliosis Acquired dysplasia of hip Traumatic brain injury Yas Ramirez MD [facility] [place] [address] Referral ID Status Reason Start Date Expiration Date Visits Requested Visits Authorized [id number] Complete - Patient Will Schedule External Appt Consult, Test & Treat 1 10/13/2011 1 1 Encounter Details Date Type Department Care Team (Late st Contact Info) Description 04/16/2011 Orders [place] [address] Yas Ramirez MD [facility] [place] [address] Edema leg; Scoliosis; Acquired dysplasia of hip, [...] PM EST Office Visit [place] [address] Hollie Ambriz MD [facility] [place] [address] Scheduled Referrals Name Type Priority Associated Diagnoses [...] consciousness documented in this encounter Care Teams Hris Specialist Relationship Specialty Start Date End Date Naina Lindsey MD [address] [place] [address] PCP - General 03/19/10 08/25/16 documented as of this encounter
--- OUTSIDE RECORDS SUMMARY | 2023-12-07 15:29 | XMS_ITS | Encounter Summary ---
Author Organization [facility] Address [facility] [place] [address] Care Team Providers Care Speech Language Pathologist Prn Name Role Phone Naina Lindsey MD Primary Care Provider [phone] Encounter Details Date Type Department Care Team (Late st Contact Info) Description 06/12/2010 9:00 AM EST Procedure visit [address] [address] Social History Tobacco Use Types Packs/Day Years [...] PM EST Office [place] [address] Hollie Ambriz MD [facility] INFECTI[place] [address] documented as of this encounter Visit Diagnoses Not on filedocumented in this encounter Care Teams Speech Language Pathologist Prn Relationship Specialty Start Date End Date Naina Lindsey MD [address] [place] [address] [place], [place] [id number] PCP - General 03/19/10 08/25/16 documented as of this encounter
--- OUTSIDE RECORDS SUMMARY | 2023-12-07 15:29 | XMS_ITS | Encounter Summary ---
Author Organization [facility] [place] [address] Care Team Providers Care Vector Control Specialist Name Role Phone Naina Lindsey MD Primary Care Provider [phone] Reason for Visit * Reason Comments Cerebral Palsy Encounter Details Date Type Department Care Team (Late st Contact Info) Description 09/05/2010 1:00 PM EDT Office [place] [address] CLINIC, DR VALADE[address] Muscle spasticity (Primary Dx) [...] PM EST Office [place] [address] [facility] [place] [address] documented as of this encounter Visit Diagnoses Diagnosis Muscle spasticity- Primary Spasm of muscle documented in this encounter Care Teams Vector Control Specialist Relationship Specialty Start Date End Date Naina Lindsye MD [address] [place] [address] PCP - General 03/19/10 08/25/16 documented as of this encounter
--- OUTSIDE RECORDS SUMMARY | 2023-12-07 15:29 | XMS_ITS | Clinical Summary ---
Author Organization [facility] Address [address] [place] [address] Care Team Providers Care Desktop Specialist Name Role Phone César Robert MD, Naina Primary Care Provider [phone] Medications Medication Sig Dispensed Refills Start Date [...] appointments, call [facility] living providers [facility]: [phone]. No additional problems on file Encounters Date Type Department Care Team Description 12/04/2023 Lab Requisition [facility] Pathology & Laboratory Medicine - [facility] [address] [place] [address] Outr Resulting Lab, Provider from Last 3 [...] series) 06/18 COVID-19 Vaccine (2022- season) 2022 Procedures Procedure Name Priority Date/Time Associated Diagnosis Comments HIGH SENSITIVITY C-REACTIVE PROTEIN (CARDIOVASCULAR DISEASE) Routine 12/04/2023 10:00 EDT from Last 3 Months Results * HIGH SENSITIVITY C-REACTIVE PROTEIN (CARDIOVASCULAR DISEASE) (12/04/2023 10:00 EDT) High Sensitivity CRP >15.00 See Note mg/L 12/04/2023 18:03 EDT [facility] Comment: Suggest ordering C-Reactive Protein Reference Range: ??Low Risk: ? <1.0 mg/L ??Average Risk: ?? 1.0 - 3.0 mg/L ??High Risk: ?>3.0 mg/L ??Indeterminate*: >10.0 mg/L ??*May be an indication of another source of inflammation or infection Blood VENOUS BLOOD / Unknown 12/04/2023 10:00 EDT 12/04/2023 17:37 EDT Provider Outr Resulting Lab CHEMISTRY & BLOOD GAS ORDERABLES [facility] [address] [place] [address] from Last 3 Months Care Teams Desktop Specialist Relationship Specialty Start Date End Date Naina Lindsey MD [address] [place] [address] PCP - General 02/13/15
--- OUTSIDE RECORDS SUMMARY | 2023-12-07 15:29 | XMS_ITS | Encounter Summary ---
Author Organization [facility] [place] [address] Care Team Providers Care Assistant Hvac Mechanic Name Role Phone Naina Lindsey MD Primary Care Provider [phone] Encounter Details Date Type Department Care Team (Late st Contact Info) Description 11/18/2010 Abstract [place] [address]1000 Jessica López, RN Social History Tobacco Use [...] PM EST Office [place] [address]1000 Hollie Ambriz MD [facility] [place] [address] documented as of this encounter Visit Diagnoses Not on filedocumented in this encounter Care Teams Assistant Hvac Mechanic Relationship Specialty Start Date End Date Naina Lindsey MD [address] [place] [address] [place] [address] PCP - General 03/19/10 08/25/16 documented as of this encounter
--- OUTSIDE RECORDS SUMMARY | 2023-12-07 15:30 | XMS_ITS | Encounter Summary ---
Author Organization [facility] Address [address] [place] [address] Care Team Providers Care House Calls Nurse Practitioner Name Role Phone César Robert MD, Naina Primary Care Provider [phone] Reason for Visit * Reason Onset Date Comments Appointment Related 04/04/2019 Encounter Details Date Type Department Care Team (Late st Contact Info) Description 04/04/2019 Telephone [facility] Rehabilitation Therapy - [address] [phone] Therapy, Physical Appointment Related Social History Tobacco [...] filedocumented in this encounter Care Teams House Calls Nurse Practitioner Relationship Specialty Start Date End Date Naina Lindsey MD [address] [place] [address] PCP - General 02/13/15 documented as of this encounter
--- OUTSIDE RECORDS SUMMARY | 2023-12-07 15:30 | XMS_ITS | Encounter Summary ---
Author Organization [facility] Address [address] [place] [address] Care Team Providers Care Print Controller Name Role Phone César Robert MD, Naina Primary Care Provider [phone] Reason for Visit * Reason Onset Date Comments Appointment Related 05/14/2015 Encounter Details Date Type Department Care Team (Late st Contact Info) Description 05/14/2015 Telephone [facility] Rehabilitation Therapy - [address] [phone] Therapy, Outpatient, Appointment Related Social History Tobacco [...] filedocumented in this encounter Care Teams Print Controller Relationship Specialty Start Date End Date Naina Lindsey MD [place] [address] PCP - General 02/13/15 documented as of this encounter
--- OUTSIDE RECORDS SUMMARY | 2023-12-07 15:30 | XMS_ITS | Encounter Summary ---
Author Organization [facility] Address [address] [place] [address] Care Team Providers Care Paunch Trimmer Name Role Phone César Robert MD, Naina Primary Care Provider [phone] Encounter Details Date Type Department Care Team (Latest Contact Info) Description 04/03/2015 9:31 EST - 04/03/2015 23:59 EST Hospital Encounter [address] [address] Naina Lindsey MD [address] [place], [place] [id number] Discharge Disposition: Home or Self Care Social [...] Code Departure Means Destination Home or Self Custodial documented in this encounter Plan of Treatment Not on file documented as of this encounter Visit Diagnoses Not on filedocumented in this encounter Care Teams Paunch Trimmer Relationship Specialty Start Date End Date Naina Lindsey MD [address] [place] [address] PCP - General 02/13/15 documented as of this encounter
--- OUTSIDE RECORDS SUMMARY | 2023-12-07 15:30 | XMS_ITS | Encounter Summary ---
Author Organization [facility] Address [address] [place] [address] Care Team Providers Care Hot Knife Foxing Cutter Name Role Phone César Robert MD, Naina Primary Care Provider [phone] Reason for Visit * Reason Onset Date Comments Appointment Related 09/27/2019 Encounter Details Date Type Department Care Team (Late st Contact Info) Description 09/27/2019 Telephone [facility] Rehabilitation Therapy - [address] [phone] Therapy, Physical Appointment Related Social History Tobacco [...] filedocumented in this encounter Care Teams Hot Knife Foxing Cutter Relationship Specialty Start Date End Date Naina Lindsey MD [address] [place] [address] PCP - General 02/13/15 documented as of this encounter
--- OUTSIDE RECORDS SUMMARY | 2023-12-07 15:30 | XMS_ITS | Encounter Summary ---
Author Organization [facility] Address [address] [place] [address] Care Team Providers Care Booth Cashier Name Role Phone César Robert MD, Naina Primary Care Provider [phone] Reason for Visit * Reason Onset Date Comments Appointment Related 05/04/2019 Encounter Details Date Type Department Care Team (Late st Contact Info) Description 05/04/2019 Telephone [facility] Rehabilitation Therapy - [address] [phone] Therapy, Physical Appointment Related Social History Tobacco [...] on filedocumented in this encounter Care Teams Booth Cashier Relationship Specialty Start Date End Date Naina Lindsey MD [address] [place] [address] PCP - General 02/13/15 documented as of this encounter
--- OUTSIDE RECORDS SUMMARY | 2023-12-07 15:30 | XMS_ITS | Encounter Summary ---
Author Organization [facility] Address [address] [place] [address] Care Team Providers Care Prize Jacker Name Role Phone César Robert MD, Naina Primary Care Provider [phone] Reason for Visit * Reason Onset Date Comments Appointment Related 03/01/2015 Encounter Details Date Type Department Care Team (Late st Contact Info) Description 03/01/2015 Telephone [facility] Rehabilitation Therapy - [address] [phone] Therapy, Outpatient, Appointment Related Social History Tobacco [...] chair. 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 Spoke with patient's student aid from [employer], Mesha Espinal. She indicates that the bracket that holds the Smart Talk device hits every door frame that they go through, and would like this remedied. Mesha states that there are no unmet ACUTE CARE NURSE PRACTITIONER needs at this time. I indicated to Mesha that Candelaria Jaquez PT should be able to address this need at the patient's Wheelchair Clinic appointment on 04/07/15. documented in this encounter Plan of Treatment Not on file documented as of this encounter Visit Diagnoses Not on filedocumented in this encounter Care Teams Prize Jacker Relationship Specialty Start Date End Date Naina Lindsey MD [address] [place] [address] PCP - General 02/13/15 documented as of this encounter
--- OUTSIDE RECORDS SUMMARY | 2023-12-07 15:30 | XMS_ITS | Encounter Summary ---
Author Organization [facility] Address [address] [place] [address] Care Team Providers Care Estate Administrator Name Role Phone César Robert MD, Naina Primary Care Provider [phone] Reason for Visit * Reason Onset Date Comments Appointment Related 10/31/2019 Encounter Details Date Type Department Care Team (Late st Contact Info) Description 10/31/2019 Telephone [facility] Rehabilitation Therapy - [address] [phone] Therapy, Physical Appointment Related Social History Tobacco [...] occur in two business days time at [facility].. Gretchen Dietz MA 10/31/2019 14:41 documented in this encounter Plan of Treatment Not on file documented as of this encounter Visit Diagnoses Not on filedocumented in this encounter Care Teams Estate Administrator Relationship Specialty Start Date End Date Naina Lindsey MD [address] [place] [address] PCP - General 02/13/15 documented as of this encounter
--- OUTSIDE RECORDS SUMMARY | 2023-12-07 15:30 | XMS_ITS | Encounter Summary ---
Author Organization [facility] Address [address] [place] [address] Care Team Providers Care Insulation Board Coater Operator Name Role Phone César Robert MD, Naina Primary Care Provider [phone] Reason for Visit * Reason Onset Date Comments Appointment Related 05/14/2015 Encounter Details Date Type Department Care Team (Late st Contact Info) Description 05/14/2015 Telephone [facility] Rehabilitation Therapy - [facility] [address] [place], [place] [id number] Therapy, Outpatient, Appointment Related Social History Tobacco [...] the original note were not included. 0 [facility]; [place] [address] May 14, 2015 Dear Javed; Per our conversation, Tana has been scheduled to be seen by the [facility] Wheelchair Assessment Team for an additional power chair evaluation. Your appointment will last for approximately 3 hours and is scheduled for: Date: Friday July 10, 2015 Time: 12:30 Place: [facility] [address] [place] [id number] The evaluation team will include the following people: [facility] Rehabilitation Physical Therapist: Candelaria Jaquez PT Medical Supplier Loan Manager: Ramin from [facility] Please call to pre-register with [facility] prior to your appointment at [phone]. During the evaluation, we would like to [...] unable to make your appointment please call [phone]. *48-hour notice is required for cancellation.* We look forward to seeing you. Mile Ronquillo [facility] Rehabilitation Therapy Center [facility] documented in this encounter Plan of Treatment Not on file documented as of this encounter Visit Diagnoses Not on filedocumented in this encounter Care Teams Insulation Board Coater Operator Relationship Specialty Start Date End Date Naina Lindsey MD [address] [place] [address] PCP - General 02/13/15 documented as of this encounter
--- OUTSIDE RECORDS SUMMARY | 2023-12-07 15:30 | XMS_ITS | Encounter Summary ---
Author Organization [facility] Address [address] [place] [address] Care Team Providers Care Field Artillery Operations Man Name Role Phone César Robert MD, Naina Primary Care Provider [phone] Encounter Details Date Type Department Care Team (Latest Contact Info) Description 07/24/2015 12:40 EDT - 07/24/2015 23:59 EDT Hospital Encounter [address] [address] Naina Lindsey MD [address] [place], [place] [address] Discharge Disposition: Auto Discharge Social History Tobacco [...] filedocumented in this encounter Care Teams Field Artillery Operations Man Relationship Specialty Start Date End Date Naina Lindsey MD [address] [place] [address] PCP - General 02/13/15 documented as of this encounter
--- OUTSIDE RECORDS SUMMARY | 2023-12-07 15:30 | XMS_ITS | Encounter Summary ---
Author Organization [facility] Address [address] [place] [address] Care Team Providers Care Study Hall Supervisor Name Role Phone César Robert MD, Naina Primary Care Provider [phone] Reason for Visit * Reason Onset Date Comments Appointment Related 03/02/2019 Encounter Details Date Type Department Care Team (Late st Contact Info) Description 03/02/2019 Telephone [facility] Rehabilitation Therapy - [address] [address] Therapy, Physical Appointment Related Social History Tobacco Use Types Packs/Day Years Used Date Smoking Tobacco: Never Assessed Sex and Gender Information Value Date Recorded Sex Assigned at Not on file Gender Identity Not on file Sexual Orientation Not on file documented as of this encounter Miscellaneous Notes * Telephone Encounter - Gretchen Dietz MA - 03/02/2019 1149 EST Voicemail message left for this patient asking that she call back into the wheelchair clinic at [phone] to confirm her availability for a custom molding appointment here at [facility] with Candelaria Jaquez, PT, DPT and Raimn Samuel ATP from [employer] for Thu04/06/19, 02-05. GRETCEHN DIETZ MA 03/02/2019 15:46 documented in this encounter Plan of Treatment Not on file documented as of this encounter Visit Diagnoses Not on filedocumented in this encounter Care Teams Study Hall Supervisor Relationship Specialty Start Date End Date Naina Lindsey MD [address] [place] [address] PCP - General 02/13/15 documented as of this encounter
--- OUTSIDE RECORDS SUMMARY | 2023-12-07 15:30 | XMS_ITS | Encounter Summary ---
Author Organization [facility] Address [address] [place] [address] Care Team Providers Care Equipment Operating Engineer Name Role Phone César Robert MD, Naina Primary Care Provider Encounter Details Date Type Department Care Team (Latest Contact Info) Description 12/04/2015 19:02 EDT - 12/04/2015 23:59 EDT Hospital Encounter [facility] [address] [place] [address] Leonid Candelaria, PT [address] [place] [phone] Andrade Lux MD [address] [facility] [address] [phone] Naina Lindsey MD [address] [place], [place] [address] Discharge Disposition: Auto Discharge Social History Tobacco [...] filedocumented in this encounter Care Teams Equipment Operating Engineer Relationship Specialty Start Date End Date Naina Lindsey MD [address] [place] [address] PCP - General 02/13/15 documented as of this encounter
--- OUTSIDE RECORDS SUMMARY | 2023-12-07 15:30 | XMS_ITS | Encounter Summary ---
Author Organization [facility] Address [address] [place] [address] Care Team Providers Care Work Car Operator Name Role Phone César Robert MD, Naina Primary Care Provider [phone] Reason for Visit * Reason Onset Date Comments Appointment Related 10/25/2019 Encounter Details Date Type Department Care Team (Late st Contact Info) Description 10/25/2019 Telephone [facility] Rehabilitation Therapy - [address] [address] Therapy, Physical Appointment Related Social History Tobacco [...] wheelchair clinic appointment, to occur tomorrow at [facility]. They confirmed their availability for this date/time. Gretchen Dietz MA 10/25/2019 15:15 documented in this encounter Plan of Treatment Not on file documented as of this encounter Visit Diagnoses Not on filedocumented in this encounter Care Teams Work Car Operator Relationship Specialty Start Date End Date Naina Lindsey MD [address] [place], [place] [address] PCP - General 02/13/15 documented as of this encounter
--- OUTSIDE RECORDS SUMMARY | 2023-12-07 15:30 | XMS_ITS | Encounter Summary ---
Author Organization [facility] Address [address] [place] [address] Care Team Providers Care Confectionery Laboratory Manager Name Role Phone César Robert MD, Naina Primary Care Provider [phone] Reason for Visit * Reason Onset Date Comments Appointment Related 03/30/2015 Encounter Details Date Type Department Care Team (Late st Contact Info) Description 03/30/2015 Telephone [facility] Rehabilitation Therapy - [address] [address] Therapy, Outpatient, Appointment Related Social History Tobacco [...] on filedocumented in this encounter Care Teams Confectionery Laboratory Manager Relationship Specialty Start Date End Date Naina Lindsey MD [address] [place] [address] [place] [address] PCP - General 02/13/15 documented as of this encounter
--- OUTSIDE RECORDS SUMMARY | 2023-12-07 15:30 | XMS_ITS | Encounter Summary ---
Author Organization [facility] Address [address] [place] [address] Care Team Providers Care Hat Conditioner Name Role Phone César Robert MD, Naina Primary Care Provider [phone] Encounter Details Date Type Department Care Team (Latest Contact Info) Description 05/29/2015 17:07 EST - 05/29/2015 23:59 EST Hospital Encounter [address] [address] Naina Lindsey MD [address] [place], [place] [address] Discharge Disposition: Home or Self Care Social [...] Code Departure Means Destination Home or Self Fdc documented in this encounter Plan of Treatment Not on file documented as of this encounter Visit Diagnoses Not on filedocumented in this encounter Care Teams Hat Conditioner Relationship Specialty Start Date End Date Naina Lindsey MD [address] [facility] [facility] [place] [address] PCP - General 02/13/15 documented as of this encounter
--- OUTSIDE RECORDS SUMMARY | 2023-12-07 15:30 | XMS_ITS | Encounter Summary ---
Author Organization [facility] Address [address] [place] [address] Care Team Providers Care Machinery Erector Name Role Phone César Robert MD, Naina Primary Care Provider [phone] Reason for Visit * Reason Onset Date Comments DME 08/11/2019 Encounter Details Date Type Department Care Team (Late st Contact Info) Description 08/11/2019 Telephone [facility] Rehabilitation Therapy - [facility] [address] [place], [place] [address] Candelaria Jaquez, ELVIRA [address] [place] [address] DME Social History Tobacco Use [...] on filedocumented in this encounter Care Teams Machinery Erector Relationship Specialty Start Date End Date Naina Lindsey MD [address] [place] [address] PCP - General 02/13/15 documented as of this encounter
--- OUTSIDE RECORDS SUMMARY | 2023-12-07 15:30 | XMS_ITS | Encounter Summary ---
Author Organization [facility] Address [address] [place] [address] Care Team Providers Care Rehabilitation Inspector Name Role Phone César Robert MD, Naina Primary Care Provider [phone] Encounter Details Date Type Department Care Team (Latest Contact Info) Description 08/24/2018 17:22 EDT - 08/24/2018 23:59 EDT Hospital Encounter [address] [address] Unknown, Provider, Discharge Disposition: Home or Self [...] Code Departure Means Destination Home or Self Long-Term documented in this encounter Plan of Treatment Not on file documented as of this encounter Visit Diagnoses Not on filedocumented in this encounter Care Teams Rehabilitation Inspector Relationship Specialty Start Date End Date Naina Lindsey MD [address] [place] [address] [place] [address] PCP - General 02/13/15 documented as of this encounter
--- OUTSIDE RECORDS SUMMARY | 2023-12-07 15:30 | XMS_ITS | Encounter Summary ---
Author Organization [facility] Address [address] [place] [address] Care Team Providers Care Counter Waiter Name Role Phone César Robert MD, Naina Primary Care Provider [phone] Encounter Details Date Type Department Care Team (Late st Contact Info) Description 07/01/2023 Lab Requisition [facility] Pathology & Laboratory Medicine - [address] [address] Outr Resulting Lab, Provider Social History Tobacco [...] 85 - 499 mg/dL 07/02/2023 11:39 EST [facility] Blood VENOUS BLOOD / Unknown 07/01/2023 10:52 EST 07/01/2023 21:19 EST Provider Outr Resulting Lab CHEMISTRY & BLOOD GAS ORDERABLES Performing Organization Address City/[facility] Co de Phone Number [facility] [address] [place] [address] * (ABNORMAL) IGG (07/01/2023 10:52 EST) IgG 1,631(H) 610 - 1,616 mg/dL 07/02/2023 11:39 EST [facility] Blood VENOUS BLOOD / Unknown 07/01/2023 10:52 EST 07/01/2023 21:19 EST Provider Outr Resulting Lab CHEMISTRY & BLOOD GAS ORDERABLES Performing Organization Address City/[facility] Co de Phone Number [facility] [address] [place], [place] [address] documented in this encounter Visit Diagnoses Not on filedocumented in this encounter Care Teams Counter Waiter Relationship Specialty Start Date End Date Naina Lindsey MD [address] [place] [address] PCP - General 02/13/15 documented as of this encounter
--- OUTSIDE RECORDS SUMMARY | 2023-12-07 15:30 | XMS_ITS | Encounter Summary ---
Author Organization [facility] Address [address] [place] [address] Care Team Providers Care Management Developer Name Role Phone César Robert MD, Naina Primary Care Provider [phone] Encounter Details Date Type Department Care Team (Latest Contact Info) Description 11/30/2018 12:49 EDT - 11/30/2018 23:59 EDT Hospital Encounter [address] [address] Lorna Bal, MARINA PORTER [address] [facility] [address] [place] [phone] Discharge Disposition: Auto Discharge Social History Tobacco [...] on filedocumented in this encounter Care Teams Management Developer Relationship Specialty Start Date End Date Naina Lindsey MD [address] [place] [address] PCP - General 02/13/15 documented as of this encounter
--- OUTSIDE RECORDS SUMMARY | 2023-12-07 15:30 | XMS_ITS | Encounter Summary ---
Author Organization [facility] Address [address] [place] [address] Care Team Providers Care Ibm Bpm Architect Name Role Phone César Robert MD, Naina Primary Care Provider [phone] Reason for Visit * Reason Onset Date Comments Appointment Related 11/04/2018 Encounter Details Date Type Department Care Team (Late st Contact Info) Description 11/04/2018 Telephone [facility] Rehabilitation Therapy - [address] [address] Therapist, Physical, PT Appointment Related Social History [...] on filedocumented in this encounter Care Teams Ibm Bpm Architect Relationship Specialty Start Date End Date Naina Lindsey MD [address] [place] [address] [place], [place] [address] PCP - General 02/13/15 documented as of this encounter
--- OUTSIDE RECORDS SUMMARY | 2023-12-07 15:30 | XMS_ITS | Encounter Summary ---
Author Organization [facility] Address [address] [place] [address] Care Team Providers Care Deportation Officer Name Role Phone César Robert MD, Naina Primary Care Provider [phone] Reason for Visit * Reason Onset Date Comments Appointment Related 03/03/2019 Encounter Details Date Type Department Care Team (Late st Contact Info) Description 03/03/[address] [facility] Rehabilitation Therapy - [address] [phone] Therapy, Physical Appointment Related Social History Tobacco [...] for the wheelchair clinic appointment here at [facility] from 02-05. GRETCHEN DIETZ MA 03/03/2019 8:43 documented in this encounter Plan of Treatment Not on file documented as of this encounter Visit Diagnoses Not on filedocumented in this encounter Care Teams Deportation Officer Relationship Specialty Start Date End Date Naina Lindsey MD [address] [place] [address] PCP - General 02/13/15 documented as of this encounter
--- OUTSIDE RECORDS SUMMARY | 2023-12-07 15:30 | XMS_ITS | Encounter Summary ---
Author Organization [facility] Address [address] [place] [address] Care Team Providers Care Orthopedic Mechanic Name Role Phone César Robert MD, Naina Primary Care Provider [phone] Reason for Visit * Reason Onset Date Comments Appointment Related 04/06/2019 Encounter Details Date Type Department Care Team (Late st Contact Info) Description 04/06/2019 Telephone [facility] Rehabilitation Therapy - [address] [phone] Therapy, Physical Appointment Related Social History Tobacco [...] of May 04 from - here at [facility]. This is a re-schedule from today as the vendor was ill. Gretchen Dietz MA 04/06/2019 11:26 documented in this encounter Plan of Treatment Not on file documented as of this encounter Visit Diagnoses Not on filedocumented in this encounter Care Teams Orthopedic Mechanic Relationship Specialty Start Date End Date Naina Lindsey MD [address] [place], [place] [address] PCP - General 02/13/15 documented as of this encounter
--- OUTSIDE RECORDS SUMMARY | 2023-12-07 15:30 | XMS_ITS | Encounter Summary ---
Author Organization [facility] Address [address] [place] [address] Care Team Providers Care Roof Assembler Name Role Phone César Robert MD, Naina Primary Care Provider [phone] Reason for Visit * Reason Onset Date Comments Appointment Related 03/01/2015 Encounter Details Date Type Department Care Team (Late st Contact Info) Description 03/01/2015 Telephone [facility] Rehabilitation Therapy - [address] [phone] Therapy, Outpatient, Appointment Related Social History Tobacco [...] by Candelaria Jaquez PT and Phyllis Whitman CCC-HEALTH COUNSELOR : Phyllis indicates she may need to do a Speech Language Evaluation for this patient. I have called and relayed this information to the patient's mother : Patient is part of the [facility] - being seen by their Speech Language Pathologists : Zina Thomas and Osman Rodriguez. Per Phyllis's: HEALTH COUNSELOR notes need to be obtained so that she can determine the length/scope of the patient's SLE appointment so that it may be properly scheduled. I will contact the [employer] to request these records. documented in this encounter Plan of Treatment Not on file documented as of this encounter Visit Diagnoses Not on filedocumented in this encounter Care Teams Roof Assembler Relationship Specialty Start Date End Date Naina Lindsey MD [address] [place] [address] PCP - General 02/13/15 documented as of this encounter
--- OUTSIDE RECORDS SUMMARY | 2023-12-07 15:30 | XMS_ITS | Encounter Summary ---
Author Organization [facility] Address [address] [place] [address] Care Team Providers Care Energy Operations Vice President Name Role Phone César Robert MD, Naina Primary Care Provider [phone] Reason for Visit * Reason Onset Date Comments Appointment Related 09/29/2019 Encounter Details Date Type Department Care Team (Late st Contact Info) Description 09/29/2019 Telephone [facility] Rehabilitation Therapy - [address] [phone] Therapy, Physical Appointment Related Social History Tobacco [...] PT, DPT and Ramin Samuel ATP from [employer]. She confirmed their availability for this date/time. Gretchen Dietz MA 09/29/2019 11:11 documented in this encounter Plan of Treatment Not on file documented as of this encounter Visit Diagnoses Not on filedocumented in this encounter Care Teams Energy Operations Vice President Relationship Specialty Start Date End Date Naina Lindsey MD [address] [place] [address] PCP - General 02/13/15 documented as of this encounter
--- OUTSIDE RECORDS SUMMARY | 2023-12-07 15:30 | XMS_ITS | Encounter Summary ---
Author Organization [facility] Address [address] [place] [address] Care Team Providers Care Outpatient Coordinator Name Role Phone César Robert MD, Naina Primary Care Provider [phone] Reason for Visit * Reason Onset Date Comments Other 04/03/2015 Encounter Details Date Type Department Care Team (Late st Contact Info) Description 04/03/2015 Telephone [facility] Rehabilitation Therapy - [facility] [address] [place], [place] [phone] Candelaria Jaquez, PT [address] [place] [address] Other Social History Tobacco Use [...] on filedocumented in this encounter Care Teams Outpatient Coordinator Relationship Specialty Start Date End Date Naina Lindsey MD [address] [place], [place] [phone] PCP - General 02/13/15 documented as of this encounter
--- OUTSIDE RECORDS SUMMARY | 2023-12-07 15:30 | XMS_ITS | Encounter Summary ---
Author Organization [facility] Address [address] [place] [address] Care Team Providers Care Risk Advisor Name Role Phone César Robert MD, Naina Primary Care Provider [phone] Reason for Visit * Reason Onset Date Comments Other 01/04/2016 Encounter Details Date Type Department Care Team (Late st Contact Info) Description 01/04/2016 Telephone [facility] Rehabilitation Therapy - [address] [phone] Therapy, Outpatient, Other Social History Tobacco Use [...] I have spoken to Oliver Lozano at [facility], but he could not see in their paperwork a clear delivery timeframe. I have sent an e-mail to Ramin Samuel and Amna Giraldo at [facility] asking that someone call Javed and give her an estimate of when the chair will be delivered. documented in this encounter Plan of Treatment Not on file documented as of this encounter Visit Diagnoses Not on filedocumented in this encounter Care Teams Risk Advisor Relationship Specialty Start Date End Date Naina Lindsey MD [address] [place] [address] PCP - General 02/13/15 documented as of this encounter
--- OUTSIDE RECORDS SUMMARY | 2023-12-07 15:30 | XMS_ITS | Encounter Summary ---
Author Organization [facility] Address [address] [place] [address] Care Team Providers Care Transit Mix Operator Name Role Phone César Robert MD, Naina Primary Care Provider [phone] Encounter Details Date Type Department Care Team [...] Outpatient Rehab Plan of Care REHABILITATION THERAPIES [facility] REHABILITATION THERAPY - [address] [address] Physical Therapy Progress Note Date of Service: [...] verbalized understanding Team Communication: MYA Pleitez from [employer] and two of Tana's caregivers were present and participated in this entire visit. A: The custom mold was created for Tana's new custom seating system. 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 Milling/Polishing Operator Goals: 8 weeks Will have a [...] Cc: Referring Provider: LIZETH Sandoval ATP from [employer] Rehabilitation Therapies [facility] Fax: [phone] WHEELCHAIR PRESCRIPTION 05/06/2019 Tana Cavazos 1995 [address] [place] [address] (home) [phone] (work) Insurance Policy Number 1. [place] Medicaid ACO [id number] Medical/Surgical History: Current: There is no problem [...] elbow (90 degrees)-n/a Component Wheelchair Description Justification Radiology Teacher, style and model USE EXISTING WHEELCHAIR Chair [...] on the mold. ?? Incontinent cover ?? Plano headrest mounting plate ?? Plano headrest mount ?? To accommodate .Tana's fixed [...] Referring Provider: Lorna Bal NP Funding at [employer] Plan ATTENDING PHYSICIAN: Your [...] on filedocumented in this encounter Care Teams Transit Mix Operator Relationship Specialty Start Date End Date Naina Lindsey MD [address] [place] [address] PCP - General 02/13/15 documented as of this encounter
--- OUTSIDE RECORDS SUMMARY | 2023-12-07 15:30 | XMS_ITS | Encounter Summary ---
Author Organization [facility] Address [address] [place] [address] Care Team Providers Care Allergy Physician Name Role Phone César Robert MD, Naina Primary Care Provider [phone] Reason for Visit * Reason Onset Date Comments Appointment Related 07/20/2015 Encounter Details Date Type Department Care Team (Late st Contact Info) Description 07/20/2015 Telephone [facility] Rehabilitation Therapy - [address] [id number] Therapy, Outpatient, Appointment Related Social History Tobacco [...] on filedocumented in this encounter Care Teams Allergy Physician Relationship Specialty Start Date End Date Naina Lindsey MD [address] [place] [address] PCP - General 02/13/15 documented as of this encounter
--- OUTSIDE RECORDS SUMMARY | 2023-12-07 15:30 | XMS_ITS | Encounter Summary ---
Author Organization [facility] Address [address] [place] [address] Care Team Providers Care Auto Detailer Name Role Phone César Robert MD, Naina Primary Care Provider [phone] Encounter Details Date Type Department Care Team (Late st Contact Info) Description 04/24/2023 Lab Requisition [facility] Pathology & Laboratory Medicine - [address] [id number] Outr Resulting Lab, Provider Social History Tobacco [...] Surface Ag Negative Negative 04/24/2023 22:33 EST [facility] Hep C Antibody Negative Negative 04/24/2023 22:33 EST [facility] Hepatitis A Antibody, IgM Negative Negative 04/24/2023 22:33 EST [facility] Comment:The results of this assay can be falsely lowered due to the consumption of Biotin. Hepatitis B Core Ab, Total Negative Negative 04/24/2023 22:33 EST [facility] Blood VENOUS BLOOD / Unknown 04/24/2023 10:00 EST 04/24/2023 21:06 EST Provider Outr Resulting Lab CHEMISTRY & BLOOD GAS ORDERABLES [facility] [address] [place] [address] documented in this encounter Visit Diagnoses Not on filedocumented in this encounter Care Teams Auto Detailer Relationship Specialty Start Date End Date Naina Lindsey MD [address] [place] [address] PCP - General 02/13/15 documented as of this encounter
--- OUTSIDE RECORDS SUMMARY | 2023-12-07 15:30 | XMS_ITS | Encounter Summary ---
Author Organization [facility] Address [address] [place] [address] Care Team Providers Care Beam Builder Name Role Phone César Robert MD, Naina Primary Care Provider [phone] Reason for Visit * Reason Onset Date Comments Appointment Related 04/13/2019 Encounter Details Date Type Department Care Team (Late st Contact Info) Description 04/13/2019 Telephone [facility] Rehabilitation Therapy - [address] [id number] Therapy, Physical Appointment Related Social History Tobacco [...] erickson Cristobal upcoming wheelchair appointment here at [facility] on 05/06 from 2-4. She confirmed they were available for the date/time. Gretchen Dietz MA 04/13/2019 15:19 documented in this encounter Plan of Treatment Not on file documented as of this encounter Visit Diagnoses Not on filedocumented in this encounter Care Teams Beam Builder Relationship Specialty Start Date End Date Naina Lindsey MD [address] [place] [address] [place], [place] [id number] PCP - General 02/13/15 documented as of this encounter
--- OUTSIDE RECORDS SUMMARY | 2023-12-07 15:30 | XMS_ITS | Encounter Summary ---
Author Organization [facility] Address [address] [place] [address] Care Team Providers Care Rn Urology Name Role Phone César Robert MD, Naina Primary Care Provider [phone] Encounter Details Date Type Department Care Team (Late st Contact Info) Description 08/24/2018 Results Only [facility] [phone] Raul Mak MD [address] [place] [address] Social History Tobacco Use Types Packs/Day Years [...] ? SHELTONJOHNArthur Hayes ? Accession #: ? [id number] ? : ? 1995 (Age: 23) ??F ? Collect Date: ? 08/24/2018 ? Location: ? [facility] ? Receive Date: ? 08/25/2018 ? Provider: RAUL MAK MD Copy to: JERED MARTINEZ MANUAL MACHINIST ? Final Pathologic Diagnosis: UTERUS AND FALLOPIAN [...] and mucin greatest dimension paratubal cyst. ? Level Vial Sealer sections are submitted as follows: BLOCK MONTOYA 1-2- ??detached left fallopian tube cross-sections and fimbria 3-4- ??attached right fallopian tube cross-sections with paratubal cyst and fimbria 5- bilateral cervix (anterior marked by blue) 6- ??bilateral lower uterine segments (anterior marked by blue ink) 7-9- ??posterior endomyometrium including probable endometrial polyp 10-11- ??anterior endomyometrium billing customer service representative sections Dr. Mora 08/26/2018 3:08 PM End of Report [facility] 08/24/2018 11:4 5 EDT 08/25/2018 11:45 EDT Raul Mak MD PATHOLOGY ORDERABLES [facility] [address] [place] [address] documented in this encounter Visit Diagnoses Not on filedocumented in this encounter Care Teams Rn Urology Relationship Specialty Start Date End Date Naina Lindsey MD [address] [place] [address] PCP - General 02/13/15 documented as of this encounter
--- OUTSIDE RECORDS SUMMARY | 2023-12-07 15:30 | XMS_ITS | Encounter Summary ---
Author Organization [facility] Address [address] [place] [address] Care Team Providers Care Mother Repairer Name Role Phone César Robert MD, Naina Primary Care Provider [phone] Reason for Visit * Reason Onset Date Comments Appointment Related 11/30/2015 Encounter Details Date Type Department Care Team (Late st Contact Info) Description 11/30/2015 Telephone [facility] Rehabilitation Therapy - [address] [address] Therapy, Outpatient, Appointment Related Social History Tobacco [...] on filedocumented in this encounter Care Teams Mother Repairer Relationship Specialty Start Date End Date Naina Lindsey MD [address] [place] [address] PCP - General 02/13/15 documented as of this encounter
--- OUTSIDE RECORDS SUMMARY | 2023-12-07 15:30 | XMS_ITS | Encounter Summary ---
Author Organization [facility] Address [address] [place] [address] Care Team Providers Care Net Developer Name Role Phone César Robert MD, Naina Primary Care Provider [phone] Reason for Visit * Reason Onset Date Comments Appointment Related 05/25/2015 Encounter Details Date Type Department Care Team (Late st Contact Info) Description 05/25/[address] [facility] Rehabilitation Therapy - [address] [phone] Therapy, Outpatient, Appointment Related Social History Tobacco [...] on filedocumented in this encounter Care Teams Net Developer Relationship Specialty Start Date End Date Naina Lindsey MD [address] [place] [address] PCP - General 02/13/15 documented as of this encounter
--- OUTSIDE RECORDS SUMMARY | 2023-12-07 15:30 | XMS_ITS | Encounter Summary ---
Author Organization [facility] Address [address] [place] [address] Care Team Providers Care Rehab Rn Name Role Phone César Robert MD, Naina Primary Care Provider [phone] Encounter Details Date Type Department Care Team (Late st Contact Info) Description 04/02/2021 Lab Requisition [facility] Pathology & Laboratory Medicine - [address] [address] Outr Resulting Lab, Provider Social History Tobacco [...] Outr Resulting Lab MICROBIOLOGY - GENERAL ORDERABLES [facility] [address] [place] [address] * COVID-19 TESTING (04/02/2021 10:55 EST) COVID-19 rt-PCR Result Negative Negative 04/03/2021 14:17 EST [facility] Comment: This test [...] performed using the eve SARS-CoV-2 assay ([employer] on the Eve 6800 System Performing Lab Eve [address] [facility] Lab 04/03/2021 14:17 EST [facility] Swab 04/02/2021 10:5 5 EST 04/02/2021 22:22 EST Provider Outr Resulting Lab MICROBIOLOGY - GENERAL ORDERABLES [facility] [address] [place] [address] documented in this encounter Visit Diagnoses Not on filedocumented in this encounter Care Teams Rehab Rn Relationship Specialty Start Date End Date Naina Lindsey MD [address] [place] [address] [place] [address] PCP - General 02/13/15 documented as of this encounter
--- OUTSIDE RECORDS SUMMARY | 2023-12-07 15:30 | XMS_ITS | Encounter Summary ---
Author Organization [facility] Address [address] [place] [address] Care Team Providers Care Press Set Up Person Name Role Phone César Robert MD, Naina Primary Care Provider [phone] Encounter Details Date Type Department Care Team (Late st Contact Info) Description 07/01/2023 Lab Requisition [facility] Pathology & Laboratory Medicine - [address] [phone] Outr Resulting Lab, Provider Social History Tobacco [...] IgA <4.0 <20.0 CU 07/02/2023 10:22 EST [facility] Comment: Negative: <20.0 CU Weak Positive: 20.0-30.0 CU Positive: >30.0 CU Results were obtained with the mNectar[employer] Flash h-tTG IgA chemiluminescent immunoassay. Values obtained with different manufacturers' assay methods may not be used interchangeably. Blood VENOUS BLOOD / Unknown 07/01/2023 10:52 EST 07/01/2023 21:12 EST Provider Outr Resulting Lab IMMUNOLOGY A ND SEROLOGY ORDERABLES Performing Organization Address City/State/[facility] Co de Phone Number [facility] [address] [place], [place] [phone] documented in this encounter Visit Diagnoses Not on filedocumented in this encounter Care Teams Press Set Up Person Relationship Specialty Start Date End Date Naina Lindsey MD [address] [place] [address] PCP - General 02/13/15 documented as of this encounter
--- OUTSIDE RECORDS SUMMARY | 2023-12-07 15:30 | XMS_ITS | Encounter Summary ---
Author Organization [facility] Address [address] [place] [address] Care Team Providers Care Feed Manager Name Role Phone César Robert MD, Naina Primary Care Provider [phone] Reason for Visit * Reason Onset Date Comments Appointment Related 11/05/2018 Encounter Details Date Type Department Care Team (Late st Contact Info) Description 11/05/2018 Telephone [facility] Rehabilitation Therapy - [address] [address] Therapist, Physical, PT Appointment Related Social History Tobacco Use Types Packs/Day Years Used Date Smoking Tobacco: Never Assessed Sex and Gender Information Value Date Recorded Sex Assigned at Not on file Gender Identity Not on file Sexual Orientation Not on file documented as of this encounter Miscellaneous Notes * Telephone Encounter - Gretchen Dietz - 11/05/2018 1344 EDT [facility] [address] [address] Person providing information? Fernanda - Caregiver Guardian: - Phone number: [phone] 1. Who recommended that you be seen [...] additional questionnaire (if needed)? - Gretchen Dietz [facility] REH[facility]ATION [facility]ERAPY - [address] [address] Telephone Intake Information for Scheduling NEW Patients [...] on filedocumented in this encounter Care Teams Feed Manager Relationship Specialty Start Date End Date Naina Lindsey MD [address] [place] [address] PCP - General 02/13/15 documented as of this encounter
--- OUTSIDE RECORDS SUMMARY | 2023-12-07 15:30 | XMS_ITS | Encounter Summary ---
Author Organization [facility] Address [address] [place] [address] Care Team Providers Care Double Back Operator Name Role Phone César Robert MD, Naina Primary Care Provider [phone] Reason for Visit * Reason Onset Date Comments Appointment Related 02/13/2015 Encounter Details Date Type Department Care Team (Late st Contact Info) Description 02/13/2015 Telephone [facility] Rehabilitation Therapy - [address] [address] Therapy, Outpatient, Appointment Related Social History Tobacco Use Types Packs/Day Years Used Date Smoking Tobacco: Never Assessed Sex and Gender Information Value Date Recorded Sex Assigned at Not on file Gender Identity Not on file Sexual Orientation Not on file documented as of this encounter Miscellaneous Notes * Telephone Encounter - Mile Ronquillo - 02/13/2015 1102 EDT [facility] [address] [address] Person providing information? Mother Guardian: Mother Phone number: [phone] 1. Who recommended that you be seen [...] send an additional questionnaire (if needed)? -- [facility]ERAP[facility] - [address] [address] Telephone Intake Information for Scheduling NEW Patients [...] 30 total therapy visits (PT, OT, and MANAGER NEWS combined) between 04-27-14 and 04-26-15. If the patient has exceeded 30 visits already, further therapy will not be covered by their insurance. Date: Tuesday April 07, 2015 Therapist: Candelaria Jaquez, PT @ 1:15 Location: [facility] Name of Supplier: [employer] Name of Rep: Ramin @ 1:45 Reason For Appt: manual Vs. Power Pressure Mapping? no Mile Ronquillo documented in this encounter Plan of Treatment Not on file documented as of this encounter Visit Diagnoses Not on filedocumented in this encounter Care Teams Double Back Operator Relationship Specialty Start Date End Date Naina Lindsey MD [address] [place] [address] PCP - General 02/13/15 documented as of this encounter
--- OUTSIDE RECORDS SUMMARY | 2023-12-07 15:30 | XMS_ITS | Encounter Summary ---
Author Organization [facility] Address [address] [place] [address] Care Team Providers Care Switch Foreman Name Role Phone César Robert MD, Naina Primary Care Provider [phone] Reason for Visit * Reason Onset Date Comments Appointment Related 11/26/2018 Encounter Details Date Type Department Care Team (Late st Contact Info) Description 11/26/2018 Telephone [facility] Rehabilitation Therapy - [address] [phone] Therapist, Physical, PT Appointment Related Social History [...] on filedocumented in this encounter Care Teams Switch Foreman Relationship Specialty Start Date End Date Naina Lindsey MD [address] [place] [address] [place] [address] PCP - General 02/13/15 documented as of this encounter
[2023-12-07 16:03] LABS: Abs Immature Grans 0.01 10^3/uL (0.0-0.06); Absolute Basophil Count 0.02 10^3/uL (0.0-0.2); Absolute Eosinophil Count 0.14 10^3/uL (0.0-0.7); Absolute Neutrophil Count 2.86 10^3/uL (1.2-6.7); Basophils % 0.4 %; Eosinophils % 2.7 %; HCT 36.8 % (36.0-46.0); HGB 11.6 g/dL (11.2-15.7); Immature Grans % 0.2 %; Lymphocytes % 34.4 %; MCH 27.6 pg (27.0-33.0); MCHC 31.5 % (32.0-36.0); MCV 88 fL (80-95); MPV 10.1 fL (8.0-11.0); Monocytes % 7.6 %; Neutrophils % 54.7 %; Platelet Count 295 10^3/uL (130-400); RDW 15.8 % (11.7-14.6); RDW-SD 50.6 fL; WBC 5.23 10^3/uL (4.4-10.8)
[2023-12-07 17:53] LABS: ALT 60 U/L (14-59); AST 31 U/L (15-37); Albumin 3.1 g/dL (3.4-5.0); Alkaline Phosphatase 201 U/L (46-116); BUN 15 mg/dL (7-18); Bilirubin, Total 0.19 mg/dL (0.2-1.0); C-Reactive Protein 3.29 mg/dL (<or=0.5); CREATININE 0.3 mg/dL (0.55-1.02); Calcium 8.9 mg/dL (8.5-10.1); Chloride 104 mmol/L (98-107); Estimated GFR 146.26 (mL/min/1.73m2); Glucose 83 mg/dL (74-106); Potassium 3.8 mmol/L (3.5-5.1); Sodium 145 mmol/L (136-145); Total Protein 7.2 g/dL (6.4-8.2)
[2023-12-07 18:24] LABS: Anion Gap 13.9 mmol/L (3-11); CO2 27.1 mmol/L (21.0-32.0)
== END 2023-12-07 15:12 | disposition home or self-care (01) ==
LOC: NCHCN 15:11
PROVIDERS: PCP Nurse Practitioner Family; Visit Provider Nurse Practitioner Family
DX: L02.818 Cutaneous abscess of other sites (principal); Z79.01 Long term (current) use of anticoagulants
CPT/HCPCS: 80053; 85025; 86140

== ENCOUNTER 2023-12-29 13:59 | Outpatient (REF) | payer MEDICAID, SELFPAY ==
[2023-12-29 11:57] LABS: Abs Immature Grans 0.01 10^3/uL (0.0-0.06); Absolute Basophil Count 0.04 10^3/uL (0.0-0.2); Absolute Eosinophil Count 0.09 10^3/uL (0.0-0.7); Absolute Lymphocyte Count 2.04 10^3/uL (1.2-3.4); Absolute Neutrophil Count 2.68 10^3/uL (1.2-6.7); Basophils % 0.8 %; Eosinophils % 1.7 %; HCT 41.1 % (36.0-46.0); HGB 12.9 g/dL (11.2-15.7); Immature Grans % 0.2 %; Lymphocytes % 39.5 %; MCH 26.9 pg (27.0-33.0); MCHC 31.4 % (32.0-36.0); MCV 86 fL (80-95); MPV 10.2 fL (8.0-11.0); Monocytes % 5.8 %; Platelet Count 334 10^3/uL (130-400); RBC 4.79 10^6/uL (3.93-5.22); RDW 15.7 % (11.7-14.6); RDW-SD 49.2 fL; WBC 5.16 10^3/uL (4.4-10.8)
[2023-12-29 12:00] LABS: ESR 50 mm/hr (0-20)
[2023-12-29 12:38] LABS: ALT 57 U/L (14-59); AST 27 U/L (15-37); Albumin 3.6 g/dL (3.4-5.0); Alkaline Phosphatase 192 U/L (46-116); Anion Gap 10.5 mmol/L (3-11); BUN 9 mg/dL (7-18); Bilirubin, Total 0.15 mg/dL (0.2-1.0); C-Reactive Protein 3.08 mg/dL (<or=0.5); CO2 27.5 mmol/L (21.0-32.0); CREATININE 0.4 mg/dL (0.55-1.02); Calcium 9.6 mg/dL (8.5-10.1); Chloride 103 mmol/L (98-107); Estimated GFR 136.46 (mL/min/1.73m2); Glucose 69 mg/dL (74-106); Potassium 4.3 mmol/L (3.5-5.1); Sodium 141 mmol/L (136-145); Total Protein 7.9 g/dL (6.4-8.2)
--- OUTSIDE RECORDS SUMMARY | 2023-12-29 14:02 | XMS_ITS | Data Portability ---
Author Organization [facility] Address [address] [place] [address] Assessment Encounter Date Assessment Date Assessment LastModified by Organization Details LastModified Time 04/24/2023 04/24/2023 The total time devoted to today's encounter, including both the qayw-ga-tezy time with the patient and/or family/caregiv er and sap-lkfw-yd-fa ce time I personally spent is 48 minutes. Not available 04/24/2023 09:38:15 11/10/2023 11/10/2023 The total time devoted to today's encounter, including both the dutd-ps-ciqf time with the patient and/or family/caregiv er and epc-tbfu-on-fa ce time I personally spent is 35 minutes. Hospital admission: 7.3.204 Hospital discharge 7.9.24. Chronic post acute care nurse practitioner reach out 7.10.24 FU in office: 7.16.24 Complexity: high Follow-up in 6 weeks. Call or RTO sooner if needs arise. Not available 11/10/2023 10:35:50 12/25/2023 12/25/2023 Flu vaccine: Encouraged this fall Comirnaty: Encouraged this fall Td: current due 2026 Pap/ HPV: Endometrial ablation in 2018. Had failed ablation. Follow-up in 3 Months. Call or RTO sooner if needs arise. Not available 12/25/2023 10:49:47 Plan of Treatment Reminders Order Date Submit Date Provider Last Modified By Organization Details Last Modified Time Details Appointments Follow Up 30 2023 10:00A M Not available Not available Not available Lab hepatitis panel (A+B+C), acute, serum 2022 023 [facility] (Registration ), [address] [place] [address] , [place], [address], 04/25/2023 11:53:33 CMP, serum or plasma 2022 023 [facility] (Registration ), [address] [place] [address] , [place], [address], 04/24/2023 14:57:58 CBC w/ auto diff 2022 023 [facility] (Registration ), [address] [place] [address] , [place], [address], 04/24/2023 14:43:55 C-reactiv e protein, quantitat brissa, serum or plasma [address] [facility] (Registration ), [address] [place] [address] [place], [address], 05/01/2023 11:12:20 ESR (erythroc yte sedimenta tion rate), blood [address] [facility] (Registration ), [address] [place] [address] , [place], [address], 05/01/2023 11:12:20 Referral orthopedi c surgeon referral - 2nd time sending for spasms to the right wrist/ thumb. 2023 024 [facility], [address], [place], [address], 08/24/2023 10:27:47 Procedures None recorded. Surgeries None recorded. Imaging None recorded. Medication Orders Ensure Active High Protein oral liquid 2022 023 [facility]- [address] [place], [address], 04/24/2023 09:17:52 Debrox 6.5 % ear drops 2023 024 [place] [address] [address] [place], [address], 11/10/2023 10:38:18 cholecalc iferol (vitamin D3) 125 mcg (5,000 unit) tablet 2023 024 [place] [address] [address] [place], [address], 11/10/2023 11:06:20 baclofen 15 mg tablet 2023 024 [place] [address] [address] [place], [address], 11/10/2023 10:38:17 Debrox 6.5 % ear drops 2023 024 [address] [place] [address] [address] [place], [address], 12/25/2023 12:05:32 cholecalc iferol (vitamin D3) 125 mcg (5,000 unit) tablet 2023 024 [address] [place] [address] [address] [place], [address], 12/25/2023 12:05:31 baclofen 15 mg tablet 2023 024 [address] [place] [address] [address] [place], [address], 12/25/2023 12:05:30 Patient TargetsNo targets recorded. Patient Instructions Encounter Date Encounter Id Patient Instructions Last Modified By Organization Details Last Modified Time 04/24/2023 [id number] - Call Dr Augustin at - Call infectious disease at [facility] Work on improving bowels that we discussed Not available 04/24/2023 09:34:29 Reason for Referral Orthopedic Surgeon Referral for Tetraplegia 2nd time sending for spasms to the right wrist/ thumb. Referring Physician: Lorna Martinez [facility], Encounter Date: 07/24/2023 Orthopedic Surgeon Referral for Contracture of joint of hand hand specialist for right thumb pain and contracture of hand Referring Physician: Lorna Martinez [facility], Encounter Date: 07/28/2023 Results Created Date Observation Date Name Description Value Unit Range Abnormal Flag Note LastModifiedBy Organization Detail LastModifiedTime 04/03/20 23 04/03/2023 COMPL ETE BLOOD COUNT W/DIF F WBC 6.00 10_3/ uL 4.4-10 .8 normal Not Available [address] [place], [address] 04/03/2023 11:18:43 04/03/20 23 04/03/2023 COMPL ETE BLOOD COUNT W/DIF F RBC 3.44 10_6/ uL 3.93-5 .22 low Not Available [address] [place], [address] 04/03/2023 11:18:43 04/03/20 23 04/03/2023 COMPL ETE BLOOD COUNT W/DIF F HGB 9.6 g/dL 11.2-1 5.7 low Not Available [address] [place], [address] 04/03/2023 11:18:43 04/03/20 23 04/03/2023 COMPL ETE BLOOD COUNT W/DIF F HCT 29.6 % 36.0-4 6.0 low Not Available [address] [place], [address] 04/03/2023 11:18:43 04/03/20 23 04/03/2023 COMPL ETE BLOOD COUNT W/DIF F MCV 86 fL 80-95 normal Not Available Regina king [address] [place], [address] 04/03/2023 11:18:43 04/03/20 23 04/03/2023 COMPL ETE BLOOD COUNT W/DIF F MCH 27.9 pg 27.0-3 3.0 normal Not Available [address] [place], [address] 04/03/2023 11:18:43 04/03/20 23 04/03/2023 COMPL ETE BLOOD COUNT W/DIF F MCHC 32.4 % 32.0-3 6.0 normal Not Available [address] [place], [address] 04/03/2023 11:18:43 04/03/20 23 04/03/2023 COMPL ETE BLOOD COUNT W/DIF F RDW 14.7 % 11.7-1 4.6 high Not Available [address] [place], [address] 04/03/2023 11:18:43 04/03/20 23 04/03/2023 COMPL ETE BLOOD COUNT W/DIF F platelet count 524 10_3/ uL 130-40 0 high Not Available [address] [place], [address] 04/03/2023 11:18:43 04/03/20 23 04/03/2023 COMPL ETE BLOOD COUNT W/DIF F MPV 9.7 fL 8.0-11 .0 normal Not Available [address] [place], [address] 04/03/2023 11:18:43 04/03/20 23 04/03/2023 COMPL ETE BLOOD COUNT W/DIF F neutrophils % 71.9 Not Available [address] [place], [address] 04/03/2023 11:18:43 04/03/20 23 04/03/2023 COMPL ETE BLOOD COUNT W/DIF F lymphocytes % 20.8 Not Available [address] [place], [address] 04/03/2023 11:18:43 04/03/20 23 04/03/2023 COMPL ETE BLOOD COUNT W/DIF F monocytes % 5.0 Not Available [address] [place], [address] 04/03/2023 11:18:43 04/03/20 23 04/03/2023 COMPL ETE BLOOD COUNT W/DIF F eosinophils % 1.5 Not Available [address] [place], [address] 04/03/2023 11:18:43 04/03/20 23 04/03/2023 COMPL ETE BLOOD COUNT W/DIF F basophils % 0.5 Not Available [address] [place], [address] 04/03/2023 11:18:43 04/03/20 23 04/03/2023 COMPL ETE BLOOD COUNT W/DIF F immature grans % 0.3 Not Available [address] [place], [address] 04/03/2023 11:18:43 04/03/20 23 04/03/2023 COMPL ETE BLOOD COUNT W/DIF F nucleated RBC 0.0 % 0.0-0. 3 normal Not Available [address] [place], [address] 04/03/2023 11:18:43 04/03/20 23 04/03/2023 COMPL ETE BLOOD COUNT W/DIF F absolute neutrophil count 4.31 10_3/ uL 1.2-6. 7 normal Not Available [address] [place], [address] 04/03/2023 11:18:43 04/03/20 23 04/03/2023 COMPL ETE BLOOD COUNT W/DIF F absolute lymphocyte count 1.25 10_3/ uL 1.2-3. 4 normal Not Available [address] [place], [address] 04/03/2023 11:18:43 04/03/20 23 04/03/2023 COMPL ETE BLOOD COUNT W/DIF F absolute monocyte count 0.30 10_3/ uL 0.1-0. 8 normal Not Available [address] [place], [address] 04/03/2023 11:18:43 04/03/20 23 04/03/2023 COMPL ETE BLOOD COUNT W/DIF F absolute eosinophil count 0.09 10_3/ uL 0.0-0. 7 normal Not Available [address] [place], [address] 04/03/2023 11:18:43 04/03/20 23 04/03/2023 COMPL ETE BLOOD COUNT W/DIF F absolute basophil count 0.03 10_3/ uL 0.0-0. 2 normal Not Available [address] [place], [address] 04/03/2023 11:18:43 04/03/20 23 04/03/2023 LIVER PANEL total protein 7.8 g/dL 6.4-8. 2 normal Not Available [address] [place], [address] 04/03/2023 11:30:47 04/03/2004/03/2023 LIVER PANEL albumin 3.3 g/dL 3.4-5. 0 low Not Available [address] [place], [address] 04/03/2023 11:30:47 04/03/20 23 04/03/2023 LIVER PANEL bilirubin, total 0.3 mg/dL 0.2-1. 0 normal Not Available [address] [place], [address] 04/03/2023 11:30:47 04/03/2004/03/2023 LIVER PANEL alk phos 365 U/L 46-116 high Not Available [address] [place], [address] 04/03/2023 11:30:47 04/03/20 23 04/03/2023 LIVER PANEL AST 48 U/L 15-37 high Not Available Regina king [address] [place], [address] 04/03/2023 11:30:47 04/03/20 23 04/03/2023 LIVER PANEL ALT 89 U/L 14-59 high Not Available Regina king [address] [place], [address] 04/03/2023 11:30:47 04/03/20 23 04/03/2023 LIVER PANEL bilirubin, conjugated 0.1 mg/dL 0.0-0. 2 normal Not Available [address] [place], [address] 04/03/2023 11:30:47 04/03/20 23 04/03/2023 COMPR EHENS BRISSA METAB OLIC PANEL calcium 9.2 mg/dL 8.5-10 .1 normal Not Available [address] [place], [address] 04/03/2023 11:30:47 04/03/20 23 04/03/2023 COMPR EHENS BRISSA METAB OLIC PANEL glucose 144 mg/dL 74-106 high Not Available Regina king [address] [place], [address] 04/03/2023 11:30:47 04/03/20 23 04/03/2023 COMPR EHENS BRISSA METAB OLIC PANEL BUN 13 mg/dL 7-18 normal Not Available Regina king [address] [place], [address] 04/03/2023 11:30:47 04/03/20 23 04/03/2023 COMPR EHENS BRISSA METAB OLIC PANEL creatinine 0.4 mg/dL 0.55-1 .02 low Not Available [address] [place], [address] 04/03/2023 11:30:47 04/03/2004/03/2023 COMPR EHENS BRISSA METAB OLIC PANEL estimated GFR 137.31 mL/min /1.73m 2 The eGFR is calcu lated from a serum creat inine using the CKD-E PI 2020 equat ion. Other varia bles requi red for the equat ion are gende r and age; this equat ion does not inclu de a race coeff icien t. This equat ion has simil ar overa ll perfo rmanc e to previ ous equat ions excep t value s may diffe r, in parti cular , in patie nts with highe r value s of eGFR and young er-ag ed adult s. Not Available [address] [place], [address] 04/03/2023 11:30:47 04/03/20 23 04/03/2023 COMPR EHENS BRISSA METAB OLIC PANEL sodium 139 mmol/ L 136-14 5 normal Not Available [address] [place], [address] 04/03/2023 11:30:47 04/03/20 23 04/03/2023 COMPR EHENS BRISSA METAB OLIC PANEL potassium 3.8 mmol/ L 3.5-5. 1 normal Not Available [address] [place], [address] 04/03/2023 11:30:47 04/03/20 23 04/03/2023 COMPR EHENS BRISSA METAB OLIC PANEL chloride 102 mmol/ L 98-107 normal Not Available [address] [place], [address] 04/03/2023 11:30:47 04/03/20 23 04/03/2023 COMPR EHENS BRISSA METAB OLIC PANEL CO2 24.5 mmol/ L 21.0-3 2.0 normal Not Available [address] [place], [address] 04/03/2023 11:30:47 04/03/20 23 04/03/2023 COMPR EHENS BRISSA METAB OLIC PANEL anion gap 12.5 mmol/ L 3-11 high Not Available [address] [place], [address] 04/03/2023 11:30:47 04/03/20 23 04/03/2023 CREAT INE KINAS E creatine kinase 45 U/L 26-192 normal Not Available [address] [place], [address] 04/03/2023 11:30:48 04/03/2004/03/2023 C-MARIELOS CTIVE PROTE IN C-reactive protein 6.28 mg/dL 0.0-0. 3 high Not Available [address] [place], [address] 04/03/2023 11:30:48 04/03/20 23 04/03/2023 ESR ESR 55 mm/HR 0-20 high Not Available [address] [place], [address] 04/03/2023 11:37:48 04/10/20 23 04/10/2023 COMPR EHENS BRISSA METAB OLIC PANEL calcium 9.3 mg/dL 8.5-10 .1 normal Not Available [address] [place], [address] 04/10/2023 12:25:49 04/10/20 23 04/10/2023 COMPR EHENS BRISSA METAB OLIC PANEL glucose 90 mg/dL 74-106 normal Not Available Regina king [address] [place], [address] 04/10/2023 12:25:49 04/10/20 23 04/10/2023 COMPR EHENS BRISSA METAB OLIC PANEL BUN 7 mg/dL 7-18 normal Not Available Regina king [address] [place], [address] 04/10/2023 12:25:49 04/10/20 23 04/10/2023 COMPR EHENS BRISSA METAB OLIC PANEL creatinine 0.3 mg/dL 0.55-1 .02 low Not Available [address] [place], [address] 04/10/2023 12:25:49 04/10/20 23 04/10/2023 COMPR EHENS BRISSA METAB OLIC PANEL estimated GFR 147.17 mL/min /1.73m 2 The eGFR is calcu lated from a serum creat inine using the CKD-E PI 2020 equat ion. Other varia bles requi red for the equat ion are gende r and age; this equat ion does not inclu de a race coeff icien t. This equat ion has simil ar overa ll perfo rmanc e to previ ous equat ions excep t value s may diffe r, in parti cular , in patie nts with highe r value s of eGFR and young er-ag ed adult s. Not Available [address] [place], [address] 04/10/2023 12:25:49 04/10/20 23 04/10/2023 COMPR EHENS BRISSA METAB OLIC PANEL total protein 7.5 g/dL 6.4-8. 2 normal Not Available [address] [place], [address] 04/10/2023 12:25:49 04/10/20 23 04/10/2023 COMPR EHENS BRISSA METAB OLIC PANEL albumin 3.0 g/dL 3.4-5. 0 low Not Available [address] [place], [address] 04/10/2023 12:25:49 04/10/20 23 04/10/2023 COMPR EHENS BRISSA METAB OLIC PANEL bilirubin, total 0.2 mg/dL 0.2-1. 0 normal Not Available [address] [place], [address] 04/10/2023 12:25:49 04/10/20 23 04/10/2023 COMPR EHENS BRISSA METAB OLIC PANEL alk phos 414 U/L 46-116 high Not Available [address] [place], [address] 04/10/2023 12:25:49 04/10/20 23 04/10/2023 COMPR EHENS BRISSA METAB OLIC PANEL sodium 138 mmol/ L 136-14 5 normal Not Available [address] [place], [address] 04/10/2023 12:25:49 04/10/20 23 04/10/2023 COMPR EHENS BRISSA METAB OLIC PANEL potassium 4.3 mmol/ L 3.5-5. 1 normal Not Available [address] [place], [address] 04/10/2023 12:25:49 04/10/20 23 04/10/2023 COMPR EHENS BRISSA METAB OLIC PANEL chloride 102 mmol/ L 98-107 normal Not Available [address] [place], [address] 04/10/2023 12:25:49 04/10/20 23 04/10/2023 COMPR EHENS BRISSA METAB OLIC PANEL CO2 24.7 mmol/ L 21.0-3 2.0 normal Not Available [address] [place], [address] 04/10/2023 12:25:49 04/10/20 23 04/10/2023 COMPR EHENS BRISSA METAB OLIC PANEL anion gap 11.3 mmol/ L 3-11 high Not Available [address] [place], [address] 04/10/2023 12:25:49 04/10/20 23 04/10/2023 COMPR EHENS BRISSA METAB OLIC PANEL AST 77 U/L 15-37 high Not Available Regina king [address] [place], [address] 04/10/2023 12:25:49 04/10/20 23 04/10/2023 COMPR EHENS BRISSA METAB OLIC PANEL ALT 137 U/L 14-59 high Not Available Regina king [address] [place], [address] 04/10/2023 12:25:49 04/10/20 23 04/10/2023 C-MARIELOS CTIVE PROTE IN C-reactive protein 9.51 mg/dL 0.0-0. 3 high Not Available [address] [place], [address] 04/10/2023 12:25:50 04/10/20 23 04/10/2023 C-MARIELOS CTIVE PROTE IN C-reactive protein 9.51 mg/dL 0.0-0. 3 high Not Available [address] [place], [address] 04/12/2023 01:17:45 04/24/20 23 04/24/2023 ESR ESR 53 mm/HR 0-20 high Not Available [address] [place], [address] 04/24/2023 14:34:51 04/24/20 23 04/24/2023 COMPL ETE BLOOD COUNT W/DIF F WBC 4.01 10_3/ uL 4.4-10 .8 low Not Available [address] [place], [address] 04/24/2023 14:43:55 04/24/20 23 04/24/2023 COMPL ETE BLOOD COUNT W/DIF F RBC 3.76 10_6/ uL 3.93-5 .22 low Not Available [address] [place], [address] 04/24/2023 14:43:55 04/24/20 23 04/24/2023 COMPL ETE BLOOD COUNT W/DIF F HGB 9.6 g/dL 11.2-1 5.7 low Not Available [address] [place], [address] 04/24/2023 14:43:55 04/24/20 23 04/24/2023 COMPL ETE BLOOD COUNT W/DIF F HCT 31.3 % 36.0-4 6.0 low Not Available [address] [place], [address] 04/24/2023 14:43:55 04/24/20 23 04/24/2023 COMPL ETE BLOOD COUNT W/DIF F MCV 83 fL 80-95 normal Not Available [address] [place], [address] 04/24/2023 14:43:55 04/24/20 23 04/24/2023 COMPL ETE BLOOD COUNT W/DIF F MCH 25.5 pg 27.0-3 3.0 low Not Available [address] [place], [address] 04/24/2023 14:43:55 04/24/20 23 04/24/2023 COMPL ETE BLOOD COUNT W/DIF F MCHC 30.7 % 32.0-3 6.0 low Not Available [address] [place], [address] 04/24/2023 14:43:55 04/24/20 23 04/24/2023 COMPL ETE BLOOD COUNT W/DIF F RDW 16.9 % 11.7-1 4.6 high Not Available [address] [place], [address] 04/24/2023 14:43:55 04/24/20 23 04/24/2023 COMPL ETE BLOOD COUNT W/DIF F platelet count 423 10_3/ uL 130-40 0 high Not Available [address] [place], [address] 04/24/2023 14:43:55 04/24/20 23 04/24/2023 COMPL ETE BLOOD COUNT W/DIF F MPV 9.9 fL 8.0-11 .0 normal Not Available [address] [place], [address] 04/24/2023 14:43:55 04/24/20 23 04/24/2023 COMPL ETE BLOOD COUNT W/DIF F neutrophils % 66.4 Not Available [facility] [address] [place] [address] [place], [address] 04/24/2023 14:43:55 04/24/20 23 04/24/2023 COMPL ETE BLOOD COUNT W/DIF F lymphocytes % 24.9 Not Available [address] [place], [address] 04/24/2023 14:43:55 04/24/20 23 04/24/2023 COMPL ETE BLOOD COUNT W/DIF F monocytes % 6.5 Not Available [address] [place], [address] 04/24/2023 14:43:55 04/24/20 23 04/24/2023 COMPL ETE BLOOD COUNT W/DIF F eosinophils % 1.5 Not Available [address] [place], [address] 04/24/2023 14:43:55 04/24/20 23 04/24/2023 COMPL ETE BLOOD COUNT W/DIF F basophils % 0.7 Not Available [address] [place], [address] 04/24/2023 14:43:55 04/24/20 23 04/24/2023 COMPL ETE BLOOD COUNT W/DIF F immature grans % 0.0 Not Available [address] [place], [address] 04/24/2023 14:43:55 04/24/20 23 04/24/2023 COMPL ETE BLOOD COUNT W/DIF F nucleated RBC 0.0 % 0.0-0. 3 normal Not Available [address] [place], [address] 04/24/2023 14:43:55 04/24/20 23 04/24/2023 COMPL ETE BLOOD COUNT W/DIF F absolute neutrophil count 2.66 10_3/ uL 1.2-6. 7 normal Not Available [address] [place], [address] 04/24/2023 14:43:55 04/24/20 23 04/24/2023 COMPL ETE BLOOD COUNT W/DIF F absolute lymphocyte count 1.00 10_3/ uL 1.2-3. 4 low Not Available [address] [place], [address] 04/24/2023 14:43:55 04/24/20 23 04/24/2023 COMPL ETE BLOOD COUNT W/DIF F absolute monocyte count 0.26 10_3/ uL 0.1-0. 8 normal Not Available [address] [place], [address] 04/24/2023 14:43:55 04/24/20 23 04/24/2023 COMPL ETE BLOOD COUNT W/DIF F absolute eosinophil count 0.06 10_3/ uL 0.0-0. 7 normal Not Available [address] [place], [address] 04/24/2023 14:43:55 04/24/20 23 04/24/2023 COMPL ETE BLOOD COUNT W/DIF F absolute basophil count 0.03 10_3/ uL 0.0-0. 2 normal Not Available [address] [place], [address] 04/24/2023 14:43:55 04/24/20 23 04/24/2023 COMPR EHENS BRISSA METAB OLIC PANEL calcium 9.5 mg/dL 8.5-10 .1 normal Not Available [address] [place], [address] 04/24/2023 14:57:58 04/24/20 23 04/24/2023 COMPR EHENS BRISSA METAB OLIC PANEL glucose 97 mg/dL 74-106 normal Not Available Regina [address] [place], [address] 04/24/2023 14:57:58 04/24/20 23 04/24/2023 COMPR EHENS BRISSA METAB OLIC PANEL BUN 11 mg/dL 7-18 normal Not Available Regina king [address] [place], [address] 04/24/2023 14:57:58 04/24/20 23 04/24/2023 COMPR EHENS BRISSA METAB OLIC PANEL creatinine 0.4 mg/dL 0.55-1 .02 low Not Available [address] [place], [address] 04/24/2023 14:57:58 04/24/20 23 04/24/2023 COMPR EHENS BRISSA METAB OLIC PANEL estimated GFR 137.31 mL/min /1.73m 2 The eGFR is calcu lated from a serum creat inine using the CKD-E PI 2020 equat ion. Other varia bles requi red for the equat ion are gende r and age; this equat ion does not inclu de a race coeff icien t. This equat ion has simil ar overa ll perfo rmanc e to previ ous equat ions excep t value s may diffe r, in parti cular , in patie nts with highe r value s of eGFR and young er-ag ed adult s. Not Available [address] [place], [address] 04/24/2023 14:57:58 04/24/20 23 04/24/2023 COMPR EHENS BRISSA METAB OLIC PANEL total protein 8.7 g/dL 6.4-8. 2 high Not Available [address] [place], [address] 04/24/2023 14:57:58 04/24/20 23 04/24/2023 COMPR EHENS BRISSA METAB OLIC PANEL albumin 3.2 g/dL 3.4-5. 0 low Not Available [address] [place], [address] 04/24/2023 14:57:58 04/24/20 23 04/24/2023 COMPR EHENS BRISSA METAB OLIC PANEL bilirubin, total 0.1 mg/dL 0.2-1. 0 low Not Available [address] [place], [address] 04/24/2023 14:57:58 04/24/20 23 04/24/2023 COMPR EHENS BRISSA METAB OLIC PANEL alk phos 256 U/L 46-116 high Not Available [address] [place], [address] 04/24/2023 14:57:58 04/24/20 23 04/24/2023 COMPR EHENS BRISSA METAB OLIC PANEL sodium 140 mmol/ L 136-14 5 normal Not Available [address] [place], [address] 04/24/2023 14:57:58 04/24/20 23 04/24/2023 COMPR EHENS BRISSA METAB OLIC PANEL potassium 3.8 mmol/ L 3.5-5. 1 normal Not Available [address] [place], [address] 04/24/2023 14:57:58 04/24/20 23 04/24/2023 COMPR EHENS BRISSA METAB OLIC PANEL chloride 102 mmol/ L 98-107 normal Not Available [address] [place], [address] 04/24/2023 14:57:58 04/24/20 23 04/24/2023 COMPR EHENS BRISSA METAB OLIC PANEL CO2 27.8 mmol/ L 21.0-3 2.0 normal Not Available [address] [place], [address] 04/24/2023 14:57:58 04/24/20 23 04/24/2023 COMPR EHENS BRISSA METAB OLIC PANEL anion gap 10.2 mmol/ L 3-11 normal Not Available [address] [place], [address] 04/24/2023 14:57:58 04/24/20 23 04/24/2023 COMPR EHENS BRISSA METAB OLIC PANEL AST 30 U/L 15-37 normal Not Available Regina king [address] [place], [address] 04/24/2023 14:57:58 04/24/20 23 04/24/2023 COMPR EHENS BRISSA METAB OLIC PANEL ALT 34 U/L 14-59 normal Not Available Regina king [address] [place], [address] 04/24/2023 14:57:58 04/24/20 23 04/24/2023 C-MARIELOS CTIVE PROTE IN C-reactive protein 5.46 mg/dL 0.0-0. 3 high Not Available [address] [place], [address] 04/24/2023 14:57:59 04/24/20 23 04/24/2023 ACUTE HEPAT ITIS PROFI LE hepatitis B surface Ag Negati ve negati ve Not Available [address] [place], [address] 04/25/2023 11:53:33 04/24/20 23 04/24/2023 ACUTE HEPAT ITIS PROFI LE hepatitis C Ab W rflx HCV PCR Negati ve negati ve Not Available [address] [place], [address] 04/25/2023 11:53:33 04/24/20 23 04/24/2023 ACUTE HEPAT ITIS PROFI LE hepatitis A antibody IgM Negati ve negati ve The resul ts of this assay can be false ly lower ed due to the consu mptio n of Bioti n. Not Available [address] [place], [address] 04/25/2023 11:53:33 04/24/20 23 04/24/2023 ACUTE HEPAT ITIS PROFI LE hepatitis B core antibody Negati ve negati ve Test perfo rmed or refer red by [facility] [address] [facility] [place] [address] Not Available [address] [place], [address] 04/25/2023 11:53:33 05/01/19 24 05/01/2023 fecal occul t blood , stool Occult Blood negati ve Not Available [address], [address], 05/01/2023 16:26:46 05/14/19 24 05/14/2023 COMPL ETE BLOOD COUNT W/DIF F WBC 3.61 10_3/ uL 4.4-10 .8 low Not Available [address] [place], [address] 05/14/2023 12:56:33 05/14/19 24 05/14/2023 COMPL ETE BLOOD COUNT W/DIF F RBC 4.26 10_6/ uL 3.93-5 .22 normal Not Available [address] [place], [address] 05/14/2023 12:56:33 05/14/19 24 05/14/2023 COMPL ETE BLOOD COUNT W/DIF F HGB 10.4 g/dL 11.2-1 5.7 low Not Available [address] [place], [address] 05/14/2023 12:56:33 05/14/19 24 05/14/2023 COMPL ETE BLOOD COUNT W/DIF F HCT 34.3 % 36.0-4 6.0 low Not Available [address] [place], [address] 05/14/2023 12:56:33 05/14/19 24 05/14/2023 COMPL ETE BLOOD COUNT W/DIF F MCV 81 fL 80-95 normal Not Available [address] [place], [address] 05/14/2023 12:56:33 05/14/19 24 05/14/2023 COMPL ETE BLOOD COUNT W/DIF F MCH 24.4 pg 27.0-3 3.0 low Not Available [address] [place], [address] 05/14/2023 12:56:33 05/14/19 24 05/14/2023 COMPL ETE BLOOD COUNT W/DIF F MCHC 30.3 % 32.0-3 6.0 low Not Available [address] [place], [address] 05/14/2023 12:56:33 05/14/19 24 05/14/2023 COMPL ETE BLOOD COUNT W/DIF F RDW 17.8 % 11.7-1 4.6 high Not Available [address] [place], [address] 05/14/2023 12:56:33 05/14/19 24 05/14/2023 COMPL ETE BLOOD COUNT W/DIF F platelet count 351 10_3/ uL 130-40 0 normal Not Available [address] [place], [address] 05/14/2023 12:56:33 05/14/19 24 05/14/2023 COMPL ETE BLOOD COUNT W/DIF F MPV 9.6 fL 8.0-11 .0 normal Not Available [address] [place], [address] 05/14/2023 12:56:33 05/14/19 24 05/14/2023 COMPL ETE BLOOD COUNT W/DIF F neutrophils % 55.3 Not Available [address] [place], [address] 05/14/2023 12:56:33 05/14/19 24 05/14/2023 COMPL ETE BLOOD COUNT W/DIF F lymphocytes % 36.6 Not Available [address] [place], [address] 05/14/2023 12:56:33 05/14/19 24 05/14/2023 COMPL ETE BLOOD COUNT W/DIF F monocytes % 5.3 Not Available [address] [place], [address] 05/14/2023 12:56:33 05/14/19 24 05/14/2023 COMPL ETE BLOOD COUNT W/DIF F eosinophils % 1.9 Not Available [address] [place], [address] 05/14/2023 12:56:33 05/14/19 24 05/14/2023 COMPL ETE BLOOD COUNT W/DIF F basophils % 0.6 Not Available [address] [place], [address] 05/14/2023 12:56:33 05/14/19 24 05/14/2023 COMPL ETE BLOOD COUNT W/DIF F immature grans % 0.3 Not Available [address] [place], [address] 05/14/2023 12:56:33 05/14/19 24 05/14/2023 COMPL ETE BLOOD COUNT W/DIF F nucleated RBC 0.0 % 0.0-0. 3 normal Not Available [address] [place], [address] 05/14/2023 12:56:33 05/14/19 24 05/14/2023 COMPL ETE BLOOD COUNT W/DIF F absolute neutrophil count 2.00 10_3/ uL 1.2-6. 7 normal Not Available [address] [place], [address] 05/14/2023 12:56:33 05/14/19 24 05/14/2023 COMPL ETE BLOOD COUNT W/DIF F absolute lymphocyte count 1.32 10_3/ uL 1.2-3. 4 normal Not Available [address] [place], [address] 05/14/2023 12:56:33 05/14/19 24 05/14/2023 COMPL ETE BLOOD COUNT W/DIF F absolute monocyte count 0.19 10_3/ uL 0.1-0. 8 normal Not Available [address] [place], [address] 05/14/2023 12:56:33 05/14/19 24 05/14/2023 COMPL ETE BLOOD COUNT W/DIF F absolute eosinophil count 0.07 10_3/ uL 0.0-0. 7 normal Not Available [address] [place], [address] 05/14/2023 12:56:33 05/14/19 24 05/14/2023 COMPL ETE BLOOD COUNT W/DIF F absolute basophil count 0.02 10_3/ uL 0.0-0. 2 normal Not Available [address] [place], [address] 05/14/2023 12:56:33 05/14/19 24 05/14/2023 ESR ESR 67 mm/HR 0-20 high Not Available [address] [place], [address] 05/14/2023 12:56:35 05/14/19 24 05/14/2023 COMPR EHENS BRISSA METAB OLIC PANEL calcium 9.4 mg/dL 8.5-10 .1 normal Not Available [address] [place], [address] 05/14/2023 13:06:39 05/14/19 24 05/14/2023 COMPR EHENS BRISSA METAB OLIC PANEL glucose 90 mg/dL 74-106 normal Not Available Regina king [address] [place], [address] 05/14/2023 13:06:39 05/14/19 24 05/14/2023 COMPR EHENS BRISSA METAB OLIC PANEL BUN 13 mg/dL 7-18 normal Not Available Regina king [address] [place], [address] 05/14/2023 13:06:39 05/14/19 24 05/14/2023 COMPR EHENS BRISSA METAB OLIC PANEL creatinine 0.4 mg/dL 0.55-1 .02 low Not Available [address] [place], [address] 05/14/2023 13:06:39 05/14/19 24 05/14/2023 COMPR EHENS BRISSA METAB OLIC PANEL estimated GFR 137.31 mL/min /1.73m 2 The eGFR is calcu lated from a serum creat inine using the CKD-E PI 2020 equat ion. Other varia bles requi red for the equat ion are gende r and age; this equat ion does not inclu de a race coeff icien t. This equat ion has simil ar overa ll perfo rmanc e to previ ous equat ions excep t value s may diffe r, in parti cular , in patie nts with highe r value s of eGFR and young er-ag ed adult s. Not Available [address] [place], [address] 05/14/2023 13:06:39 05/14/19 24 05/14/2023 COMPR EHENS BRISSA METAB OLIC PANEL total protein 7.8 g/dL 6.4-8. 2 normal Not Available [address] [place], [address] 05/14/2023 13:06:39 05/14/19 24 05/14/2023 COMPR EHENS BRISSA METAB OLIC PANEL albumin 3.3 g/dL 3.4-5. 0 low Not Available [address] [place], [address] 05/14/2023 13:06:39 05/14/19 24 05/14/2023 COMPR EHENS BRISSA METAB OLIC PANEL bilirubin, total 0.2 mg/dL 0.2-1. 0 normal Not Available [address] [place], [address] 05/14/2023 13:06:39 05/14/19 24 05/14/2023 COMPR EHENS BRISSA METAB OLIC PANEL alk phos 283 U/L 46-116 high Not Available [address] [place], [address] 05/14/2023 13:06:39 05/14/19 24 05/14/2023 COMPR EHENS BRISSA METAB OLIC PANEL sodium 140 mmol/ L 136-14 5 normal Not Available [address] [place], [address] 05/14/2023 13:06:39 05/14/19 24 05/14/2023 COMPR EHENS BRISSA METAB OLIC PANEL potassium 4.1 mmol/ L 3.5-5. 1 normal Not Available [address] [place], [address] 05/14/2023 13:06:39 05/14/19 24 05/14/2023 COMPR EHENS BRISSA METAB OLIC PANEL chloride 102 mmol/ L 98-107 normal Not Available [address] [place], [address] 05/14/2023 13:06:39 05/14/19 24 05/14/2023 COMPR EHENS BRISSA METAB OLIC PANEL CO2 27.4 mmol/ L 21.0-3 2.0 normal Not Available [address] [place], [address] 05/14/2023 13:06:39 05/14/19 24 05/14/2023 COMPR EHENS BRISSA METAB OLIC PANEL anion gap 10.6 mmol/ L 3-11 normal Not Available [address] [place], [address] 05/14/2023 13:06:39 05/14/19 24 05/14/2023 COMPR EHENS BRISSA METAB OLIC PANEL AST 35 U/L 15-37 normal Not Available Regina king [address] [place], [address] 05/14/2023 13:06:39 05/14/19 24 05/14/2023 COMPR EHENS BRISSA METAB OLIC PANEL ALT 64 U/L 14-59 high Not Available Regina king [address] [place], [address] 05/14/2023 13:06:39 05/14/19 24 05/14/2023 CREAT INE KINAS E creatine kinase 21 U/L 26-192 low Not Available Paula nunes [address] [place], [address] 05/14/2023 13:06:43 05/14/19 24 05/14/2023 C-MARIELOS CTIVE PROTE IN C-reactive protein 3.60 mg/dL 0.0-0. 3 high Not Available [address] [place], [address] 05/14/2023 13:06:43 06/17/19 24 06/17/2023 COMPL ETE BLOOD COUNT W/DIF F WBC 4.17 10_3/ uL 4.4-10 .8 low Not Available [address] [place], [address] 06/17/2023 13:58:18 06/17/19 24 06/17/2023 COMPL ETE BLOOD COUNT W/DIF F RBC 4.90 10_6/ uL 3.93-5 .22 normal Not Available [address] [place], [address] 06/17/2023 13:58:18 06/17/19 24 06/17/2023 COMPL ETE BLOOD COUNT W/DIF F HGB 12.1 g/dL 11.2-1 5.7 normal Not Available [address] [place], [address] 06/17/2023 13:58:18 06/17/19 24 06/17/2023 COMPL ETE BLOOD COUNT W/DIF F HCT 38.4 % 36.0-4 6.0 normal Not Available [address] [place], [address] 06/17/2023 13:58:18 06/17/19 24 06/17/2023 COMPL ETE BLOOD COUNT W/DIF F MCV 78 fL 80-95 low Not Available Regina [address] [place], [address] 06/17/2023 13:58:18 06/17/19 24 06/17/2023 COMPL ETE BLOOD COUNT W/DIF F MCH 24.7 pg 27.0-3 3.0 low Not Available [address] [place], [address] 06/17/2023 13:58:18 06/17/19 24 06/17/2023 COMPL ETE BLOOD COUNT W/DIF F MCHC 31.5 % 32.0-3 6.0 low Not Available [address] [place], [address] 06/17/2023 13:58:18 06/17/19 24 06/17/2023 COMPL ETE BLOOD COUNT W/DIF F RDW 20.3 % 11.7-1 4.6 high Not Available [address] [place], [address] 06/17/2023 13:58:18 06/17/19 24 06/17/2023 COMPL ETE BLOOD COUNT W/DIF F platelet count 325 10_3/ uL 130-40 0 normal Not Available [address] [place], [address] 06/17/2023 13:58:18 06/17/19 24 06/17/2023 COMPL ETE BLOOD COUNT W/DIF F MPV 10.1 fL 8.0-11 .0 normal Not Available [address] [place], [address] 06/17/2023 13:58:18 06/17/19 24 06/17/2023 COMPL ETE BLOOD COUNT W/DIF F neutrophils % 58.2 Not Available [address] [place], [address] 06/17/2023 13:58:18 06/17/19 24 06/17/2023 COMPL ETE BLOOD COUNT W/DIF F lymphocytes % 32.1 Not Available [address] [place], [address] 06/17/2023 13:58:18 06/17/19 24 06/17/2023 COMPL ETE BLOOD COUNT W/DIF F monocytes % 7.4 Not Available [address] [place], [address] 06/17/2023 13:58:18 06/17/19 24 06/17/2023 COMPL ETE BLOOD COUNT W/DIF F eosinophils % 1.4 Not Available [address] [place], [address] 06/17/2023 13:58:18 06/17/19 24 06/17/2023 COMPL ETE BLOOD COUNT W/DIF F basophils % 0.7 Not Available [address] [place], [address] 06/17/2023 13:58:18 06/17/19 24 06/17/2023 COMPL ETE BLOOD COUNT W/DIF F immature grans % 0.2 Not Available [address] [place], [address] 06/17/2023 13:58:18 06/17/19 24 06/17/2023 COMPL ETE BLOOD COUNT W/DIF F nucleated RBC 0.0 % 0.0-0. 3 normal Not Available [address] [place], [address] 06/17/2023 13:58:18 06/17/19 24 06/17/2023 COMPL ETE BLOOD COUNT W/DIF F absolute neutrophil count 2.43 10_3/ uL 1.2-6. 7 normal Not Available [address] [place], [address] 06/17/2023 13:58:18 06/17/19 24 06/17/2023 COMPL ETE BLOOD COUNT W/DIF F absolute lymphocyte count 1.34 10_3/ uL 1.2-3. 4 normal Not Available [address] [place], [address] 06/17/2023 13:58:18 06/17/19 24 06/17/2023 COMPL ETE BLOOD COUNT W/DIF F absolute monocyte count 0.31 10_3/ uL 0.1-0. 8 normal Not Available [address] [place], [address] 06/17/2023 13:58:18 06/17/19 24 06/17/2023 COMPL ETE BLOOD COUNT W/DIF F absolute eosinophil count 0.06 10_3/ uL 0.0-0. 7 normal Not Available [address] [place], [address] 06/17/2023 13:58:18 06/17/19 24 06/17/2023 COMPL ETE BLOOD COUNT W/DIF F absolute basophil count 0.03 10_3/ uL 0.0-0. 2 normal Not Available [address] [place], [address] 06/17/2023 13:58:18 06/17/19 24 06/17/2023 COMPL ETE BLOOD COUNT W/DIF F diff comment RBC Morph Review ed Not Available [address] [place], [address] 06/17/2023 13:58:18 06/17/19 24 06/17/2023 COMPL ETE BLOOD COUNT W/DIF F RBC morphology See Below Not Available [address] [place], [address] 06/17/2023 13:58:18 06/17/19 24 06/17/2023 COMPL ETE BLOOD COUNT W/DIF F anisocytosis 1+ Not Available [address] [place], [address] 06/17/2023 13:58:18 06/17/19 24 06/17/2023 COMPL ETE BLOOD COUNT W/DIF F microcytosis 1+ Not Available [address] [place], [address] 06/17/2023 13:58:18 06/17/19 24 06/17/2023 COMPL ETE BLOOD COUNT W/DIF F poikilocytes 1+ STOMA TOCYT ES Not Available [address] [place], [address] 06/17/2023 13:58:18 07/01/19 24 07/01/2023 COMPR EHENS BRISSA METAB OLIC PANEL calcium 9.5 mg/dL 8.5-10 .1 normal Not Available [address] [place], [address] 07/01/2023 16:12:34 07/01/19 24 07/01/2023 COMPR EHENS BRISSA METAB OLIC PANEL glucose 102 mg/dL 74-106 normal Not Available Regina [address] [place], [address] 07/01/2023 16:12:34 07/01/19 24 07/01/2023 COMPR EHENS BRISSA METAB OLIC PANEL BUN 13 mg/dL 7-18 normal Not Available Regina [address] [place], [address] 07/01/2023 16:12:34 07/01/19 24 07/01/2023 COMPR EHENS BRISSA METAB OLIC PANEL creatinine 0.4 mg/dL 0.55-1 .02 low Not Available [address] [place], [address] 07/01/2023 16:12:34 07/01/19 24 07/01/2023 COMPR EHENS BRISSA METAB OLIC PANEL estimated GFR 136.46 mL/min /1.73m 2 The eGFR is calcu lated from a serum creat inine using the CKD-E PI 2020 equat ion. Other varia bles requi red for the equat ion are gende r and age; this equat ion does not inclu de a race coeff icien t. This equat ion has simil ar overa ll perfo rmanc e to previ ous equat ions excep t value s may diffe r, in parti cular , in patie nts with highe r value s of eGFR and young er-ag ed adult s. Not Available [address] [place], [address] 07/01/2023 16:12:34 07/01/19 24 07/01/2023 COMPR EHENS BRISSA METAB OLIC PANEL total protein 7.9 g/dL 6.4-8. 2 normal Not Available [address] [place], [address] 07/01/2023 16:12:34 07/01/19 24 07/01/2023 COMPR EHENS BRISSA METAB OLIC PANEL albumin 3.6 g/dL 3.4-5. 0 normal Not Available [address] [place], [address] 07/01/2023 16:12:34 07/01/19 24 07/01/2023 COMPR EHENS BRISSA METAB OLIC PANEL bilirubin, total 0.1 mg/dL 0.2-1. 0 low Not Available [address] [place], [address] 07/01/2023 16:12:34 07/01/19 24 07/01/2023 COMPR EHENS BRISSA METAB OLIC PANEL alk phos 233 U/L 46-116 high Not Available [address] [place], [address] 07/01/2023 16:12:34 07/01/19 24 07/01/2023 COMPR EHENS BRISSA METAB OLIC PANEL sodium 142 mmol/ L 136-14 5 normal Not Available [address] [place], [address] 07/01/2023 16:12:34 07/01/19 24 07/01/2023 COMPR EHENS BRISSA METAB OLIC PANEL potassium 4.0 mmol/ L 3.5-5. 1 normal Not Available [address] [place], [address] 07/01/2023 16:12:34 07/01/19 24 07/01/2023 COMPR EHENS BRISSA METAB OLIC PANEL chloride 104 mmol/ L 98-107 normal Not Available [address] [place], [address] 07/01/2023 16:12:34 07/01/19 24 07/01/2023 COMPR EHENS BRISSA METAB OLIC PANEL CO2 26.4 mmol/ L 21.0-3 2.0 normal Not Available [address] [place], [address] 07/01/2023 16:12:34 07/01/19 24 07/01/2023 COMPR EHENS BRISSA METAB OLIC PANEL anion gap 11.6 mmol/ L 3-11 high Not Available [address] [place], [address] 07/01/2023 16:12:34 07/01/19 24 07/01/2023 COMPR EHENS BRISSA METAB OLIC PANEL AST 27 U/L 15-37 normal Not Available Regina [address] [place], [address] 07/01/2023 16:12:34 07/01/19 24 07/01/2023 COMPR EHENS BRISSA METAB OLIC PANEL ALT 70 U/L 14-59 high Not Available Regina [address] [place], [address] 07/01/2023 16:12:34 07/01/19 24 07/01/2023 IRON/ IBCT iron 42 ug/dL 50-170 low Not Available Regina [address] [place], [address] 07/01/2023 16:36:37 07/01/19 24 07/01/2023 IRON/ IBCT total iron binding capacity 403 ug/dL 250-45 0 normal Not Available [address] [place], [address] 07/01/2023 16:36:37 07/01/19 24 07/01/2023 IRON/ IBCT transferrin sat 10 % 15-50 low Not Available Paula nunes [address] [place], [address] 07/01/2023 16:36:37 07/01/19 24 07/02/2023 TISSU E TRANS GLUTA YASH E IGA tissue transglutami nase IgA <4.0 cu <20.0 Negat brissa: <20.0 CU Weak Posit brissa: 20.0- 30.0 CU Posit brissa: >30.0 CU Resul ts were obtai katie with the Werfe n QUANT A Flash h-tTG IgA chemi lumin escen t immun oassa y. Value s obtai katie with diffe cachorrot yoly actur ers' assay metho ds may not be used inter magallanes eably . Test perfo rmed or refer red by [facility] [address], [place] [address] Not Available [address] [place], [address] 07/02/2023 11:39:19 07/01/19 24 07/02/2023 IGG IgG 1631 mg/dL 610-16 16 abnormal Test perfo rmed or refer red by [facility] [address] [place] [address] Not Available [address] [place], [address] 07/02/2023 15:55:58 07/01/19 24 07/02/2023 IGA IgA 284 mg/dL 85-499 Test perfo rmed or refer red by [facility] [address] [place] [address] Not Available [address] [place], [address] 07/02/2023 15:55:58 07/29/19 24 07/29/2023 VITAM IN D 25 TOTAL vitamin D 25 total 39.4 NG/mL 30-100 normal Refer ence Guide lines : Defic ient: <10 ng/ml Insuf ficie nt: 10-30 ng/ml Suffi cient : 30-10 0 ng/ml Toxic : >100 ng/ml Not Available [address] [place], [address] 07/29/2023 13:31:45 10/28/19 24 10/28/2023 COMPL ETE BLOOD COUNT W/DIF F WBC 7.24 10_3/ uL 4.4-10 .8 normal Not Available [address] [place], [address] 10/28/2023 13:08:06 10/28/19 24 10/28/2023 COMPL ETE BLOOD COUNT W/DIF F RBC 4.41 10_6/ uL 3.93-5 .22 normal Not Available [address] [place], [address] 10/28/2023 13:08:06 10/28/19 24 10/28/2023 COMPL ETE BLOOD COUNT W/DIF F HGB 12.5 g/dL 11.2-1 5.7 normal Not Available [address] [place], [address] 10/28/2023 13:08:06 10/28/19 24 10/28/2023 COMPL ETE BLOOD COUNT W/DIF F HCT 38.8 % 36.0-4 6.0 normal Not Available [address] [place], [address] 10/28/2023 13:08:06 10/28/19 24 10/28/2023 COMPL ETE BLOOD COUNT W/DIF F MCV 88 fL 80-95 normal Not Available [address] [place], [address] 10/28/2023 13:08:06 10/28/19 24 10/28/2023 COMPL ETE BLOOD COUNT W/DIF F MCH 28.3 pg 27.0-3 3.0 normal Not Available [address] [place], [address] 10/28/2023 13:08:06 10/28/19 24 10/28/2023 COMPL ETE BLOOD COUNT W/DIF F MCHC 32.2 % 32.0-3 6.0 normal Not Available [address] [place], [address] 10/28/2023 13:08:06 10/28/19 24 10/28/2023 COMPL ETE BLOOD COUNT W/DIF F RDW 14.3 % 11.7-1 4.6 normal Not Available [address] [place], [address] 10/28/2023 13:08:06 10/28/19 24 10/28/2023 COMPL ETE BLOOD COUNT W/DIF F platelet count 482 10_3/ uL 130-40 0 high Not Available [address] [place], [address] 10/28/2023 13:08:06 10/28/19 24 10/28/2023 COMPL ETE BLOOD COUNT W/DIF F MPV 9.8 fL 8.0-11 .0 normal Not Available [address] [place], [address] 10/28/2023 13:08:06 10/28/19 24 10/28/2023 COMPL ETE BLOOD COUNT W/DIF F neutrophils % 71.3 % Not Available [address] [place], [address] 10/28/2023 13:08:06 10/28/19 24 10/28/2023 COMPL ETE BLOOD COUNT W/DIF F lymphocytes % 21.0 % Not Available [address] [place], [address] 10/28/2023 13:08:06 10/28/19 24 10/28/2023 COMPL ETE BLOOD COUNT W/DIF F monocytes % 5.4 % Not Available [address] [place], [address] 10/28/2023 13:08:06 10/28/19 24 10/28/2023 COMPL ETE BLOOD COUNT W/DIF F eosinophils % 1.5 % Not Available [address] [place], [address] 10/28/2023 13:08:06 10/28/19 24 10/28/2023 COMPL ETE BLOOD COUNT W/DIF F basophils % 0.4 % Not Available [address] [place], [address] 10/28/2023 13:08:06 10/28/19 24 10/28/2023 COMPL ETE BLOOD COUNT W/DIF F immature grans % 0.4 % Not Available [address] [place], [address] 10/28/2023 13:08:06 10/28/19 24 10/28/2023 COMPL ETE BLOOD COUNT W/DIF F nucleated RBC 0.0 % 0.0-0. 3 normal Not Available [address] [place], [address] 10/28/2023 13:08:06 10/28/19 24 10/28/2023 COMPL ETE BLOOD COUNT W/DIF F absolute neutrophil count 5.16 10_3/ uL 1.2-6. 7 normal Not Available [address] [place], [address] 10/28/2023 13:08:06 10/28/19 24 10/28/2023 COMPL ETE BLOOD COUNT W/DIF F absolute lymphocyte count 1.52 10_3/ uL 1.2-3. 4 normal Not Available [address] [place], [address] 10/28/2023 13:08:06 10/28/19 24 10/28/2023 COMPL ETE BLOOD COUNT W/DIF F absolute monocyte count 0.39 10_3/ uL 0.1-0. 8 normal Not Available [address] [place], [address] 10/28/2023 13:08:06 10/28/19 24 10/28/2023 COMPL ETE BLOOD COUNT W/DIF F absolute eosinophil count 0.11 10_3/ uL 0.0-0. 7 normal Not Available [address] [place], [address] 10/28/2023 13:08:06 10/28/19 24 10/28/2023 COMPL ETE BLOOD COUNT W/DIF F absolute basophil count 0.03 10_3/ uL 0.0-0. 2 normal Not Available [address] [place], [address] 10/28/2023 13:08:06 10/28/19 24 10/28/2023 COMPR EHENS BRISSA METAB OLIC PANEL calcium 9.1 mg/dL 8.5-10 .1 normal Not Available [address] [place], [address] 10/28/2023 13:27:10 10/28/19 24 10/28/2023 COMPR EHENS BRISSA METAB OLIC PANEL glucose 98 mg/dL 74-106 normal Not Available Regina king [address] [place], [address] 10/28/2023 13:27:10 10/28/19 24 10/28/2023 COMPR EHENS BRISSA METAB OLIC PANEL BUN 8 mg/dL 7-18 normal Not Available Regina king [address] [place], [address] 10/28/2023 13:27:10 10/28/19 24 10/28/2023 COMPR EHENS BRISSA METAB OLIC PANEL creatinine 0.4 mg/dL 0.55-1 .02 low Not Available [address] [place], [address] 10/28/2023 13:27:10 10/28/19 24 10/28/2023 COMPR EHENS BRISSA METAB OLIC PANEL estimated GFR 136.46 mL/min /1.73m 2 The eGFR is calcu lated from a serum creat inine using the CKD-E PI 2020 equat ion. Other varia bles requi red for the equat ion are gende r and age; this equat ion does not inclu de a race coeff icien t. This equat ion has simil ar overa ll perfo rmanc e to previ ous equat ions excep t value s may diffe r, in parti cular , in patie nts with highe r value s of eGFR and young er-ag ed adult s. Not Available [address] [place], [address] 10/28/2023 13:27:10 10/28/19 24 10/28/2023 COMPR EHENS BRISSA METAB OLIC PANEL total protein 7.9 g/dL 6.4-8. 2 normal Not Available [address] [place], [address] 10/28/2023 13:27:10 10/28/19 24 10/28/2023 COMPR EHENS BRISSA METAB OLIC PANEL albumin 3.0 g/dL 3.4-5. 0 low Not Available [address] [place], [address] 10/28/2023 13:27:10 10/28/19 24 10/28/2023 COMPR EHENS BRISSA METAB OLIC PANEL bilirubin, total 0.27 mg/dL 0.2-1. 0 normal Not Available [address] [place], [address] 10/28/2023 13:27:10 10/28/19 24 10/28/2023 COMPR EHENS BRISSA METAB OLIC PANEL alk phos 263 U/L 46-116 high Not Available [address] [place], [address] 10/28/2023 13:27:10 10/28/19 24 10/28/2023 COMPR EHENS BRISSA METAB OLIC PANEL sodium 141 mmol/ L 136-14 5 normal Not Available [address] [place], [address] 10/28/2023 13:27:10 10/28/19 24 10/28/2023 COMPR EHENS BRISSA METAB OLIC PANEL potassium 4.3 mmol/ L 3.5-5. 1 normal Not Available [address] [place], [address] 10/28/2023 13:27:10 10/28/19 24 10/28/2023 COMPR EHENS BRISSA METAB OLIC PANEL chloride 103 mmol/ L 98-107 normal Not Available [address] [place], [address] 10/28/2023 13:27:10 10/28/19 24 10/28/2023 COMPR EHENS BRISSA METAB OLIC PANEL CO2 29.2 mmol/ L 21.0-3 2.0 normal Not Available [address] [place], [address] 10/28/2023 13:27:10 10/28/19 24 10/28/2023 COMPR EHENS BRISSA METAB OLIC PANEL anion gap 8.8 mmol/ L 3-11 normal Not Available [address] [place], [address] 10/28/2023 13:27:10 10/28/19 24 10/28/2023 COMPR EHENS BRISSA METAB OLIC PANEL AST 22 U/L 15-37 normal Not Available Regina king [address] [place], [address] 10/28/2023 13:27:10 10/28/19 24 10/28/2023 COMPR EHENS BRISSA METAB OLIC PANEL ALT 54 U/L 14-59 normal Not Available Regina king [address] [place], [address] 10/28/2023 13:27:10 10/28/19 24 10/28/2023 C-MARIELOS CTIVE PROTE IN C-reactive protein 13.00 mg/dL <or=0. 5 high Not Available [facility] (Registration ) [address] [place] [address] [place], [address], 10/28/2023 13:27:11 11/09/19 24 11/09/2023 COMPL ETE BLOOD COUNT W/DIF F WBC 6.51 10_3/ uL 4.4-10 .8 normal Not Available [address] [place], [address] 11/09/2023 17:58:02 11/09/19 24 11/09/2023 COMPL ETE BLOOD COUNT W/DIF F RBC 4.22 10_6/ uL 3.93-5 .22 normal Not Available [address] [place], [address] 11/09/2023 17:58:02 11/09/19 24 11/09/2023 COMPL ETE BLOOD COUNT W/DIF F HGB 11.8 g/dL 11.2-1 5.7 normal Not Available [address] [place], [address] 11/09/2023 17:58:02 11/09/19 24 11/09/2023 COMPL ETE BLOOD COUNT W/DIF F HCT 36.7 % 36.0-4 6.0 normal Not Available [address] [place], [address] 11/09/2023 17:58:02 11/09/19 24 11/09/2023 COMPL ETE BLOOD COUNT W/DIF F MCV 87 fL 80-95 normal Not Available Regina king [address] [place], [address] 11/09/2023 17:58:02 11/09/19 24 11/09/2023 COMPL ETE BLOOD COUNT W/DIF F MCH 28.0 pg 27.0-3 3.0 normal Not Available [address] [place], [address] 11/09/2023 17:58:02 11/09/19 24 11/09/2023 COMPL ETE BLOOD COUNT W/DIF F MCHC 32.2 % 32.0-3 6.0 normal Not Available [address] [place], [address] 11/09/2023 17:58:02 11/09/19 24 11/09/2023 COMPL ETE BLOOD COUNT W/DIF F RDW 14.5 % 11.7-1 4.6 normal Not Available [address] [place], [address] 11/09/2023 17:58:02 11/09/19 24 11/09/2023 COMPL ETE BLOOD COUNT W/DIF F platelet count 430 10_3/ uL 130-40 0 high Not Available [address] [place], [address] 11/09/2023 17:58:02 11/09/19 24 11/09/2023 COMPL ETE BLOOD COUNT W/DIF F MPV 9.5 fL 8.0-11 .0 normal Not Available [address] [place], [address] 11/09/2023 17:58:02 11/09/19 24 11/09/2023 COMPL ETE BLOOD COUNT W/DIF F neutrophils % 60.3 % Not Available [address] [place], [address] 11/09/2023 17:58:02 11/09/19 24 11/09/2023 COMPL ETE BLOOD COUNT W/DIF F lymphocytes % 31.0 % Not Available [address] [place], [address] 11/09/2023 17:58:02 11/09/19 24 11/09/2023 COMPL ETE BLOOD COUNT W/DIF F monocytes % 5.7 % Not Available [address] [place] [place], [address] 11/09/2023 17:58:02 11/09/19 24 11/09/2023 COMPL ETE BLOOD COUNT W/DIF F eosinophils % 2.2 % Not Available [address] [place], [address] 11/09/2023 17:58:02 11/09/19 24 11/09/2023 COMPL ETE BLOOD COUNT W/DIF F basophils % 0.6 % Not Available [address] [place], [address] 11/09/2023 17:58:02 11/09/19 24 11/09/2023 COMPL ETE BLOOD COUNT W/DIF F immature grans % 0.2 % Not Available [address] [place], [address] 11/09/2023 17:58:02 11/09/19 24 11/09/2023 COMPL ETE BLOOD COUNT W/DIF F nucleated RBC 0.0 % 0.0-0. 3 normal Not Available [address] [place], [address] 11/09/2023 17:58:02 11/09/19 24 11/09/2023 COMPL ETE BLOOD COUNT W/DIF F absolute neutrophil count 3.93 10_3/ uL 1.2-6. 7 normal Not Available [address] [place], [address] 11/09/2023 17:58:02 11/09/19 24 11/09/2023 COMPL ETE BLOOD COUNT W/DIF F absolute lymphocyte count 2.02 10_3/ uL 1.2-3. 4 normal Not Available [address] [place], [address] 11/09/2023 17:58:02 11/09/19 24 11/09/2023 COMPL ETE BLOOD COUNT W/DIF F absolute monocyte count 0.37 10_3/ uL 0.1-0. 8 normal Not Available [address] [place], [address] 11/09/2023 17:58:02 11/09/19 24 11/09/2023 COMPL ETE BLOOD COUNT W/DIF F absolute eosinophil count 0.14 10_3/ uL 0.0-0. 7 normal Not Available [address] [place], [address] 11/09/2023 17:58:02 11/09/19 24 11/09/2023 COMPL ETE BLOOD COUNT W/DIF F absolute basophil count 0.04 10_3/ uL 0.0-0. 2 normal Not Available [address] [place], [address] 11/09/2023 17:58:02 11/09/19 24 11/09/2023 COMPR EHENS BRISSA METAB OLIC PANEL calcium 9.1 mg/dL 8.5-10 .1 normal Not Available [address] [place], [address] 11/09/2023 18:20:06 11/09/19 24 11/09/2023 COMPR EHENS BRISSA METAB OLIC PANEL glucose 119 mg/dL 74-106 high Not Available Regina [address] [place], [address] 11/09/2023 18:20:06 11/09/19 24 11/09/2023 COMPR EHENS BRISSA METAB OLIC PANEL BUN 30 mg/dL 7-18 high Not Available Regina [address] [place], [address] 11/09/2023 18:20:06 11/09/19 24 11/09/2023 COMPR EHENS BRISSA METAB OLIC PANEL creatinine 1.2 mg/dL 0.55-1 .02 high Not Available [address] [place], [address] 11/09/2023 18:20:06 11/09/19 24 11/09/2023 COMPR EHENS BRISSA METAB OLIC PANEL estimated GFR 62.45 mL/min /1.73m 2 The eGFR is calcu lated from a serum creat inine using the CKD-E PI 2020 equat ion. Other varia bles requi red for the equat ion are gende r and age; this equat ion does not inclu de a race coeff icien t. This equat ion has simil ar overa ll perfo rmanc e to previ ous equat ions excep t value s may diffe r, in parti cular , in patie nts with highe r value s of eGFR and young er-ag ed adult s. Not Available [address] [place], [address] 11/09/2023 18:20:06 11/09/19 24 11/09/2023 COMPR EHENS BRISSA METAB OLIC PANEL total protein 7.4 g/dL 6.4-8. 2 normal Not Available [address] [place], [address] 11/09/2023 18:20:06 11/09/19 24 11/09/2023 COMPR EHENS BRISSA METAB OLIC PANEL albumin 3.3 g/dL 3.4-5. 0 low Not Available [address] [place], [address] 11/09/2023 18:20:06 11/09/19 24 11/09/2023 COMPR EHENS BRISSA METAB OLIC PANEL bilirubin, total 0.36 mg/dL 0.2-1. 0 normal Not Available [address] [place], [address] 11/09/2023 18:20:06 11/09/19 24 11/09/2023 COMPR EHENS BRISSA METAB OLIC PANEL alk phos 129 U/L 46-116 high Not Available [address] [place], [address] 11/09/2023 18:20:06 11/09/19 24 11/09/2023 COMPR EHENS BRISSA METAB OLIC PANEL sodium 128 mmol/ L 136-14 5 low Not Available [address] [place], [address] 11/09/2023 18:20:06 11/09/19 24 11/09/2023 COMPR EHENS BRISSA METAB OLIC PANEL potassium 4.3 mmol/ L 3.5-5. 1 normal Not Available [address] [place], [address] 11/09/2023 18:20:06 11/09/19 24 11/09/2023 COMPR EHENS BRISSA METAB OLIC PANEL chloride 92 mmol/ L 98-107 low Not Available [address] [place], [address] 11/09/2023 18:20:06 11/09/19 24 11/09/2023 COMPR EHENS BRISSA METAB OLIC PANEL CO2 26.0 mmol/ L 21.0-3 2.0 normal Not Available [address] [place], [address] 11/09/2023 18:20:06 11/09/19 24 11/09/2023 COMPR EHENS BRISSA METAB OLIC PANEL anion gap 10.0 mmol/ L 3-11 normal Not Available [address] [place], [address] 11/09/2023 18:20:06 11/09/19 24 11/09/2023 COMPR EHENS BRISSA METAB OLIC PANEL AST 29 U/L 15-37 normal Not Available [address] [place], [address] 11/09/2023 18:20:06 11/09/19 24 11/09/2023 COMPR EHENS BRISSA METAB OLIC PANEL ALT 40 U/L 14-59 normal Not Available [address] [place], [address] 11/09/2023 18:20:06 11/09/19 24 11/09/2023 C-MARIELOS CTIVE PROTE IN C-reactive protein 3.21 mg/dL <or=0. 5 high Not Available [address] [place], [address] 11/09/2023 18:20:06 11/09/19 24 11/09/2023 C-MARIELOS CTIVE PROTE IN C-reactive protein 3.21 mg/dL <or=0. 5 high MISLA BEL Not Available [address] [place], [address] 11/09/2023 19:28:31 11/09/19 24 11/09/2023 COMPR EHENS BRISSA METAB OLIC PANEL calcium 9.4 mg/dL 8.5-10 .1 normal --- 11/08 --- COR RECTE D REPOR T Corre cted Resul ts barfield d to and read back from BRITTNEY Gilbert RN ([facility]) 11/08 at 1922 by LAB.L AUT Not Available [address] [place], [address] 11/09/2023 19:48:30 11/09/19 24 11/09/2023 COMPR EHENS BRISSA METAB OLIC PANEL glucose 114 mg/dL 74-106 high Not Available Regina king [address] [place], [address] 11/09/2023 19:48:30 11/09/19 24 11/09/2023 COMPR EHENS BRISSA METAB OLIC PANEL BUN 11 mg/dL 7-18 normal Not Available Regina king [address] [place], [address] 11/09/2023 19:48:30 11/09/19 24 11/09/2023 COMPR EHENS BRISSA METAB OLIC PANEL creatinine 0.4 mg/dL 0.55-1 .02 low Not Available [address] [place], [address] 11/09/2023 19:48:30 11/09/19 24 11/09/2023 COMPR EHENS BRISSA METAB OLIC PANEL estimated GFR 136.46 mL/min /1.73m 2 The eGFR is calcu lated from a serum creat inine using the CKD-E PI 2020 equat ion. Other varia bles requi red for the equat ion are gende r and age; this equat ion does not inclu de a race coeff icien t. This equat ion has simil ar overa ll perfo rmanc e to previ ous equat ions excep t value s may diffe r, in parti cular , in patie nts with highe r value s of eGFR and young er-ag ed adult s. Not Available [address] [place], [address] 11/09/2023 19:48:30 11/09/19 11/09/2023 COMPR EHENS BRISSA METAB OLIC PANEL total protein 7.7 g/dL 6.4-8. 2 normal Not Available [address] [place], [address] 11/09/2023 19:48:30 11/09/19 24 11/09/2023 COMPR EHENS BRISSA METAB OLIC PANEL albumin 3.1 g/dL 3.4-5. 0 low Not Available [address] [place], [address] 11/09/2023 19:48:30 11/09/19 24 11/09/2023 COMPR EHENS BRISSA METAB OLIC PANEL bilirubin, total 0.12 mg/dL 0.2-1. 0 low Not Available [address] [place], [address] 11/09/2023 19:48:30 11/09/19 24 11/09/2023 COMPR EHENS BRISSA METAB OLIC PANEL alk phos 213 U/L 46-116 high Not Available [address] [place], [address] 11/09/2023 19:48:30 11/09/19 24 11/09/2023 COMPR EHENS BRISSA METAB OLIC PANEL sodium 140 mmol/ L 136-14 5 normal Not Available [address] [place], [address] 11/09/2023 19:48:30 11/09/19 24 11/09/2023 COMPR EHENS BRISSA METAB OLIC PANEL potassium 3.9 mmol/ L 3.5-5. 1 normal Not Available [address] [place], [address] 11/09/2023 19:48:30 11/09/19 24 11/09/2023 COMPR EHENS BRISSA METAB OLIC PANEL chloride 102 mmol/ L 98-107 normal Not Available [address] [place], [address] 11/09/2023 19:48:30 11/09/19 24 11/09/2023 COMPR EHENS BRISSA METAB OLIC PANEL CO2 26.8 mmol/ L 21.0-3 2.0 normal Not Available [address] [place], [address] 11/09/2023 19:48:30 11/09/19 24 11/09/2023 COMPR EHENS BRISSA METAB OLIC PANEL anion gap 11.2 mmol/ L 3-11 high Not Available [address] [place], [address] 11/09/2023 19:48:30 11/09/19 24 11/09/2023 COMPR EHENS BRISSA METAB OLIC PANEL AST 20 U/L 15-37 normal Not Available Regina king [address] [place], [address] 11/09/2023 19:48:30 11/09/19 24 11/09/2023 COMPR EHENS BRISSA METAB OLIC PANEL ALT 56 U/L 14-59 normal Not Available Regina king [address] [place], [address] 11/09/2023 19:48:30 11/09/19 24 11/09/2023 C-MARIELOS CTIVE PROTE IN C-reactive protein 3.39 mg/dL <or=0. 5 high Not Available [address] [place], [address] 11/09/2023 19:48:30 11/16/19 24 11/16/2023 COMPL ETE BLOOD COUNT W/DIF F WBC 3.75 10_3/ uL 4.4-10 .8 low Not Available [address] [place], [address] 11/16/2023 13:50:58 11/16/19 24 11/16/2023 COMPL ETE BLOOD COUNT W/DIF F RBC 4.38 10_6/ uL 3.93-5 .22 normal Not Available [address] [place], [address] 11/16/2023 13:50:58 11/16/19 24 11/16/2023 COMPL ETE BLOOD COUNT W/DIF F HGB 12.2 g/dL 11.2-1 5.7 normal Not Available [address] [place], [address] 11/16/2023 13:50:58 11/16/19 24 11/16/2023 COMPL ETE BLOOD COUNT W/DIF F HCT 38.3 % 36.0-4 6.0 normal Not Available [address] [place], [address] 11/16/2023 13:50:58 11/16/19 24 11/16/2023 COMPL ETE BLOOD COUNT W/DIF F MCV 87 fL 80-95 normal Not Available Regina king [address] [place], [address] 11/16/2023 13:50:58 11/16/19 24 11/16/2023 COMPL ETE BLOOD COUNT W/DIF F MCH 27.9 pg 27.0-3 3.0 normal Not Available [address] [place], [address] 11/16/2023 13:50:58 11/16/19 24 11/16/2023 COMPL ETE BLOOD COUNT W/DIF F MCHC 31.9 % 32.0-3 6.0 low Not Available [address] [place], [address] 11/16/2023 13:50:58 11/16/19 24 11/16/2023 COMPL ETE BLOOD COUNT W/DIF F RDW 14.4 % 11.7-1 4.6 normal Not Available [address] [place], [address] 11/16/2023 13:50:58 11/16/19 24 11/16/2023 COMPL ETE BLOOD COUNT W/DIF F platelet count 319 10_3/ uL 130-40 0 normal Not Available [address] [place], [address] 11/16/2023 13:50:58 11/16/19 24 11/16/2023 COMPL ETE BLOOD COUNT W/DIF F MPV 10.1 fL 8.0-11 .0 normal Not Available [address] [place], [address] 11/16/2023 13:50:58 11/16/19 24 11/16/2023 COMPL ETE BLOOD COUNT W/DIF F neutrophils % 53.6 % Not Available [address] [place], [address] 11/16/2023 13:50:58 11/16/19 24 11/16/2023 COMPL ETE BLOOD COUNT W/DIF F lymphocytes % 34.9 % Not Available [address] [place], [address] 11/16/2023 13:50:58 11/16/19 24 11/16/2023 COMPL ETE BLOOD COUNT W/DIF F monocytes % 6.4 % Not Available [address] [place], [address] 11/16/2023 13:50:58 11/16/19 24 11/16/2023 COMPL ETE BLOOD COUNT W/DIF F eosinophils % 4.0 % Not Available [address] [place], [address] 11/16/2023 13:50:58 11/16/19 24 11/16/2023 COMPL ETE BLOOD COUNT W/DIF F basophils % 0.8 % Not Available [address] [place], [address] 11/16/2023 13:50:58 11/16/19 24 11/16/2023 COMPL ETE BLOOD COUNT W/DIF F immature grans % 0.3 % Not Available [address] [place], [address] 11/16/2023 13:50:58 11/16/19 24 11/16/2023 COMPL ETE BLOOD COUNT W/DIF F nucleated RBC 0.0 % 0.0-0. 3 normal Not Available [address] [place], [address] 11/16/2023 13:50:58 11/16/19 24 11/16/2023 COMPL ETE BLOOD COUNT W/DIF F absolute neutrophil count 2.01 10_3/ uL 1.2-6. 7 normal Not Available [address] [place], [address] 11/16/2023 13:50:58 11/16/19 24 11/16/2023 COMPL ETE BLOOD COUNT W/DIF F absolute lymphocyte count 1.31 10_3/ uL 1.2-3. 4 normal Not Available [address] [place], [address] 11/16/2023 13:50:58 11/16/19 24 11/16/2023 COMPL ETE BLOOD COUNT W/DIF F absolute monocyte count 0.24 10_3/ uL 0.1-0. 8 normal Not Available [address] [place], [address] 11/16/2023 13:50:58 11/16/19 24 11/16/2023 COMPL ETE BLOOD COUNT W/DIF F absolute eosinophil count 0.15 10_3/ uL 0.0-0. 7 normal Not Available [address] [place], [address] 11/16/2023 13:50:58 11/16/19 24 11/16/2023 COMPL ETE BLOOD COUNT W/DIF F absolute basophil count 0.03 10_3/ uL 0.0-0. 2 normal Not Available [address] [place], [address] 11/16/2023 13:50:58 11/16/19 24 11/16/2023 COMPR EHENS BRISSA METAB OLIC PANEL calcium 8.9 mg/dL 8.5-10 .1 normal Not Available [address] [place], [address] 11/16/2023 14:42:19 11/16/19 24 11/16/2023 COMPR EHENS BRISSA METAB OLIC PANEL glucose 108 mg/dL 74-106 high Not Available Regina king [address] [place], [address] 11/16/2023 14:42:19 11/16/19 24 11/16/2023 COMPR EHENS BRISSA METAB OLIC PANEL BUN 13 mg/dL 7-18 normal Not Available Regina king [address] [place], [address] 11/16/2023 14:42:19 11/16/19 24 11/16/2023 COMPR EHENS BRISSA METAB OLIC PANEL creatinine 0.4 mg/dL 0.55-1 .02 low Not Available [address] [place], [address] 11/16/2023 14:42:19 11/16/19 24 11/16/2023 COMPR EHENS BRISSA METAB OLIC PANEL estimated GFR 136.46 mL/min /1.73m 2 The eGFR is calcu lated from a serum creat inine using the CKD-E PI 2020 equat ion. Other varia bles requi red for the equat ion are gende r and age; this equat ion does not inclu de a race coeff icien t. This equat ion has simil ar overa ll perfo rmanc e to previ ous equat ions excep t value s may diffe r, in parti cular , in patie nts with highe r value s of eGFR and young er-ag ed adult s. Not Available [address] [place], [address] 11/16/2023 14:42:19 11/16/19 24 11/16/2023 COMPR EHENS BRISSA METAB OLIC PANEL total protein 7.5 g/dL 6.4-8. 2 normal Not Available [address] [place], [address] 11/16/2023 14:42:11/16/19 24 11/16/2023 COMPR EHENS BRISSA METAB OLIC PANEL albumin 3.1 g/dL 3.4-5. 0 low Not Available [address] [place], [address] 11/16/2023 14:42:19 11/16/19 24 11/16/2023 COMPR EHENS BRISSA METAB OLIC PANEL bilirubin, total 0.20 mg/dL 0.2-1. 0 normal Not Available [address] [place], [address] 11/16/2023 14:42:19 11/16/19 24 11/16/2023 COMPR EHENS BRISSA METAB OLIC PANEL alk phos 192 U/L 46-116 high Not Available [address] [place], [address] 11/16/2023 14:42:19 11/16/19 24 11/16/2023 COMPR EHENS BRISSA METAB OLIC PANEL sodium 144 mmol/ L 136-14 5 normal Not Available [address] [place], [address] 11/16/2023 14:42:19 11/16/19 24 11/16/2023 COMPR EHENS BRISSA METAB OLIC PANEL potassium 4.0 mmol/ L 3.5-5. 1 normal Not Available [address] [place], [address] 11/16/2023 14:42:19 11/16/19 24 11/16/2023 COMPR EHENS BRISSA METAB OLIC PANEL chloride 107 mmol/ L 98-107 normal Not Available [address] [place], [address] 11/16/2023 14:42:19 11/16/19 24 11/16/2023 COMPR EHENS BRISSA METAB OLIC PANEL CO2 28.9 mmol/ L 21.0-3 2.0 normal Not Available [address] [place], [address] 11/16/2023 14:42:19 11/16/19 24 11/16/2023 COMPR EHENS BRISSA METAB OLIC PANEL anion gap 8.1 mmol/ L 3-11 normal Not Available [address] [place], [address] 11/16/2023 14:42:19 11/16/19 24 11/16/2023 COMPR EHENS BRISSA METAB OLIC PANEL AST 38 U/L 15-37 high Not Available Regina king [address] [place], [address] 11/16/2023 14:42:19 11/16/19 24 11/16/2023 COMPR EHENS BRISSA METAB OLIC PANEL ALT 75 U/L 14-59 high Not Available Regina king [address] [place], [address] 11/16/2023 14:42:19 11/16/19 24 11/16/2023 C-MARIELOS CTIVE PROTE IN C-reactive protein 1.57 mg/dL <or=0. 5 high Not Available [address] [place], [address] 11/16/2023 14:42:19 11/23/19 24 11/23/2023 COMPL ETE BLOOD COUNT W/DIF F WBC 4.40 10_3/ uL 4.4-10 .8 normal Not Available [address] [place], [address] 11/23/2023 13:45:24 11/23/19 24 11/23/2023 COMPL ETE BLOOD COUNT W/DIF F RBC 4.32 10_6/ uL 3.93-5 .22 normal Not Available [address] [place], [address] 11/23/2023 13:45:24 11/23/19 24 11/23/2023 COMPL ETE BLOOD COUNT W/DIF F HGB 12.2 g/dL 11.2-1 5.7 normal Not Available [address] [place], [address] 11/23/2023 13:45:24 11/23/19 24 11/23/2023 COMPL ETE BLOOD COUNT W/DIF F HCT 37.2 % 36.0-4 6.0 normal Not Available [address] [place], [address] 11/23/2023 13:45:24 11/23/19 24 11/23/2023 COMPL ETE BLOOD COUNT W/DIF F MCV 86 fL 80-95 normal Not Available [address] [place], [address] 11/23/2023 13:45:24 11/23/19 24 11/23/2023 COMPL ETE BLOOD COUNT W/DIF F MCH 28.2 pg 27.0-3 3.0 normal Not Available [address] [place], [address] 11/23/2023 13:45:24 11/23/19 24 11/23/2023 COMPL ETE BLOOD COUNT W/DIF F MCHC 32.8 % 32.0-3 6.0 normal Not Available [address] [place], [address] 11/23/2023 13:45:24 11/23/19 24 11/23/2023 COMPL ETE BLOOD COUNT W/DIF F RDW 15.2 % 11.7-1 4.6 high Not Available [address] [place], [address] 11/23/2023 13:45:24 11/23/19 24 11/23/2023 COMPL ETE BLOOD COUNT W/DIF F platelet count 269 10_3/ uL 130-40 0 normal Not Available [address] [place], [address] 11/23/2023 13:45:24 11/23/19 24 11/23/2023 COMPL ETE BLOOD COUNT W/DIF F MPV 10.2 fL 8.0-11 .0 normal Not Available [address] [place], [address] 11/23/2023 13:45:24 11/23/19 24 11/23/2023 COMPL ETE BLOOD COUNT W/DIF F neutrophils % 52.3 % Not Available [address] [place] [place], [address] 11/23/2023 13:45:24 11/23/19 24 11/23/2023 COMPL ETE BLOOD COUNT W/DIF F lymphocytes % 35.7 % Not Available [address] [place] [place], [address] 11/23/2023 13:45:24 11/23/19 24 11/23/2023 COMPL ETE BLOOD COUNT W/DIF F monocytes % 8.6 % Not Available [address] [place], [address] 11/23/2023 13:45:24 11/23/19 24 11/23/2023 COMPL ETE BLOOD COUNT W/DIF F eosinophils % 2.5 % Not Available [address] [place], [address] 11/23/2023 13:45:24 11/23/19 24 11/23/2023 COMPL ETE BLOOD COUNT W/DIF F basophils % 0.7 % Not Available [address] [place], [address] 11/23/2023 13:45:24 11/23/19 24 11/23/2023 COMPL ETE BLOOD COUNT W/DIF F immature grans % 0.2 % Not Available Paula nunes [address] [place], [address] 11/23/2023 13:45:24 11/23/19 24 11/23/2023 COMPL ETE BLOOD COUNT W/DIF F nucleated RBC 0.0 % 0.0-0. 3 normal Not Available [address] [place], [address] 11/23/2023 13:45:24 11/23/19 24 11/23/2023 COMPL ETE BLOOD COUNT W/DIF F absolute neutrophil count 2.30 10_3/ uL 1.2-6. 7 normal Not Available [address] [place], [address] 11/23/2023 13:45:24 11/23/19 24 11/23/2023 COMPL ETE BLOOD COUNT W/DIF F absolute lymphocyte count 1.57 10_3/ uL 1.2-3. 4 normal Not Available [address] [place], [address] 11/23/2023 13:45:24 11/23/19 24 11/23/2023 COMPL ETE BLOOD COUNT W/DIF F absolute monocyte count 0.38 10_3/ uL 0.1-0. 8 normal Not Available [address] [place], [address] 11/23/2023 13:45:24 11/23/19 24 11/23/2023 COMPL ETE BLOOD COUNT W/DIF F absolute eosinophil count 0.11 10_3/ uL 0.0-0. 7 normal Not Available [address] [place], [address] 11/23/2023 13:45:24 11/23/19 24 11/23/2023 COMPL ETE BLOOD COUNT W/DIF F absolute basophil count 0.03 10_3/ uL 0.0-0. 2 normal Not Available [address] [place], [address] 11/23/2023 13:45:24 11/23/19 24 11/23/2023 COMPR EHENS BRISSA METAB OLIC PANEL calcium 9.3 mg/dL 8.5-10 .1 normal Not Available [address] [place], [address] 11/23/2023 13:52:24 11/23/19 24 11/23/2023 COMPR EHENS BRISSA METAB OLIC PANEL glucose 90 mg/dL 74-106 normal Not Available Regina king [address] [place], [address] 11/23/2023 13:52:24 11/23/19 24 11/23/2023 COMPR EHENS BRISSA METAB OLIC PANEL BUN 16 mg/dL 7-18 normal Not Available Regina king [address] [place], [address] 11/23/2023 13:52:24 11/23/19 24 11/23/2023 COMPR EHENS BRISSA METAB OLIC PANEL creatinine 0.3 mg/dL 0.55-1 .02 low Not Available [address] [place], [address] 11/23/2023 13:52:24 11/23/19 24 11/23/2023 COMPR EHENS BRISSA METAB OLIC PANEL estimated GFR 146.26 mL/min /1.73m 2 The eGFR is calcu lated from a serum creat inine using the CKD-E PI 2020 equat ion. Other varia bles requi red for the equat ion are gende r and age; this equat ion does not inclu de a race coeff icien t. This equat ion has simil ar overa ll perfo rmanc e to previ ous equat ions excep t value s may diffe r, in parti cular , in patie nts with highe r value s of eGFR and young er-ag ed adult s. Not Available [address] [place], [address] 11/23/2023 13:52:24 11/23/19 24 11/23/2023 COMPR EHENS BRISSA METAB OLIC PANEL total protein 7.6 g/dL 6.4-8. 2 normal Not Available [address] [place], [address] 11/23/2023 13:52:24 11/23/19 24 11/23/2023 COMPR EHENS BRISSA METAB OLIC PANEL albumin 3.3 g/dL 3.4-5. 0 low Not Available [address] [place], [address] 11/23/2023 13:52:24 11/23/19 24 11/23/2023 COMPR EHENS BRISSA METAB OLIC PANEL bilirubin, total 0.22 mg/dL 0.2-1. 0 normal Not Available [address] [place], [address] 11/23/2023 13:52:24 11/23/19 24 11/23/2023 COMPR EHENS BRISSA METAB OLIC PANEL alk phos 201 U/L 46-116 high Not Available [address] [place], [address] 11/23/2023 13:52:24 11/23/19 24 11/23/2023 COMPR EHENS BRISSA METAB OLIC PANEL sodium 145 mmol/ L 136-14 5 normal Not Available [address] [place], [address] 11/23/2023 13:52:24 11/23/19 24 11/23/2023 COMPR EHENS BRISSA METAB OLIC PANEL potassium 3.8 mmol/ L 3.5-5. 1 normal Not Available [address] [place], [address] 11/23/2023 13:52:24 11/23/19 24 11/23/2023 COMPR EHENS BRISSA METAB OLIC PANEL chloride 107 mmol/ L 98-107 normal Not Available [address] [place], [address] 11/23/2023 13:52:24 11/23/19 24 11/23/2023 COMPR EHENS BRISSA METAB OLIC PANEL CO2 29.8 mmol/ L 21.0-3 2.0 normal Not Available [address] [place], [address] 11/23/2023 13:52:24 11/23/19 24 11/23/2023 COMPR EHENS BRISSA METAB OLIC PANEL anion gap 8.2 mmol/ L 3-11 normal Not Available [address] [place], [address] 11/23/2023 13:52:24 11/23/19 24 11/23/2023 COMPR EHENS BRISSA METAB OLIC PANEL AST 40 U/L 15-37 high Not Available Regina king [address] [place], [address] 11/23/2023 13:52:24 11/23/19 24 11/23/2023 COMPR EHENS BRISSA METAB OLIC PANEL ALT 83 U/L 14-59 high Not Available Regina king [address] [place], [address] 11/23/2023 13:52:24 11/23/19 24 11/23/2023 C-MARIELOS CTIVE PROTE IN C-reactive protein 2.24 mg/dL <or=0. 5 high Not Available [address] [place], [address] 11/23/2023 13:52:24 12/04/19 24 12/04/2023 COMPL ETE BLOOD COUNT W/DIF F WBC 5.03 10_3/ uL 4.4-10 .8 normal Not Available [address] [place], [address] 12/04/2023 12:01:04 12/04/19 24 12/04/2023 COMPL ETE BLOOD COUNT W/DIF F RBC 4.08 10_6/ uL 3.93-5 .22 normal Not Available [address] [place], [address] 12/04/2023 12:01:04 12/04/19 24 12/04/2023 COMPL ETE BLOOD COUNT W/DIF F HGB 11.3 g/dL 11.2-1 5.7 normal Not Available [address] [place], [address] 12/04/2023 12:01:04 12/04/19 24 12/04/2023 COMPL ETE BLOOD COUNT W/DIF F HCT 35.8 % 36.0-4 6.0 low Not Available [address] [place], [address] 12/04/2023 12:01:04 12/04/19 24 12/04/2023 COMPL ETE BLOOD COUNT W/DIF F MCV 88 fL 80-95 normal Not Available Regina [address] [place], [address] 12/04/2023 12:01:04 12/04/19 24 12/04/2023 COMPL ETE BLOOD COUNT W/DIF F MCH 27.7 pg 27.0-3 3.0 normal Not Available [address] [place], [address] 12/04/2023 12:01:04 12/04/19 24 12/04/2023 COMPL ETE BLOOD COUNT W/DIF F MCHC 31.6 % 32.0-3 6.0 low Not Available [address] [place], [address] 12/04/2023 12:01:04 12/04/19 24 12/04/2023 COMPL ETE BLOOD COUNT W/DIF F RDW 16.2 % 11.7-1 4.6 high Not Available [address] [place], [address] 12/04/2023 12:01:04 12/04/19 24 12/04/2023 COMPL ETE BLOOD COUNT W/DIF F platelet count 265 10_3/ uL 130-40 0 normal Not Available [address] [place], [address] 12/04/2023 12:01:04 12/04/19 24 12/04/2023 COMPL ETE BLOOD COUNT W/DIF F MPV 10.6 fL 8.0-11 .0 normal Not Available [address] [place], [address] 12/04/2023 12:01:04 12/04/19 24 12/04/2023 COMPL ETE BLOOD COUNT W/DIF F neutrophils % 67.0 % Not Available Paula nunes [address] [place], [address] 12/04/2023 12:01:04 12/04/19 24 12/04/2023 COMPL ETE BLOOD COUNT W/DIF F lymphocytes % 25.4 % Not Available [address] [place], [address] 12/04/2023 12:01:04 12/04/19 24 12/04/2023 COMPL ETE BLOOD COUNT W/DIF F monocytes % 5.4 % Not Available [address] [place], [address] 12/04/2023 12:01:04 12/04/19 24 12/04/2023 COMPL ETE BLOOD COUNT W/DIF F eosinophils % 1.6 % Not Available [address] [place], [address] 12/04/2023 12:01:04 12/04/19 24 12/04/2023 COMPL ETE BLOOD COUNT W/DIF F basophils % 0.4 % Not Available [address] [place], [address] 12/04/2023 12:01:04 12/04/19 24 12/04/2023 COMPL ETE BLOOD COUNT W/DIF F immature grans % 0.2 % Not Available [address] [place], [address] 12/04/2023 12:01:04 12/04/19 24 12/04/2023 COMPL ETE BLOOD COUNT W/DIF F nucleated RBC 0.0 % 0.0-0. 3 normal Not Available [address] [place], [address] 12/04/2023 12:01:04 12/04/19 24 12/04/2023 COMPL ETE BLOOD COUNT W/DIF F absolute neutrophil count 3.37 10_3/ uL 1.2-6. 7 normal Not Available [address] [place], [address] 12/04/2023 12:01:04 12/04/19 24 12/04/2023 COMPL ETE BLOOD COUNT W/DIF F absolute lymphocyte count 1.28 10_3/ uL 1.2-3. 4 normal Not Available [address] [place], [address] 12/04/2023 12:01:04 12/04/19 24 12/04/2023 COMPL ETE BLOOD COUNT W/DIF F absolute monocyte count 0.27 10_3/ uL 0.1-0. 8 normal Not Available [address] [place], [address] 12/04/2023 12:01:04 12/04/19 24 12/04/2023 COMPL ETE BLOOD COUNT W/DIF F absolute eosinophil count 0.08 10_3/ uL 0.0-0. 7 normal Not Available [address] [place], [address] 12/04/2023 12:01:04 12/04/19 24 12/04/2023 COMPL ETE BLOOD COUNT W/DIF F absolute basophil count 0.02 10_3/ uL 0.0-0. 2 normal Not Available [address] [place], [address] 12/04/2023 12:01:04 12/04/19 24 12/04/2023 COMPR EHENS BRISSA METAB OLIC PANEL calcium 9.2 mg/dL 8.5-10 .1 normal Not Available [address] [place], [address] 12/04/2023 12:11:18 12/04/1912/04/2023 COMPR EHENS BRISSA METAB OLIC PANEL glucose 118 mg/dL 74-106 high Not Available Regina king [address] [place], [address] 12/04/2023 12:11:18 12/04/19 24 12/04/2023 COMPR EHENS BRISSA METAB OLIC PANEL BUN 9 mg/dL 7-18 normal Not Available Regina king [address] [place], [address] 12/04/2023 12:11:18 12/04/1912/04/2023 COMPR EHENS BRISSA METAB OLIC PANEL creatinine 0.4 mg/dL 0.55-1 .02 low Not Available [address] [place], [address] 12/04/2023 12:11:18 12/04/19 24 12/04/2023 COMPR EHENS BRISSA METAB OLIC PANEL estimated GFR 136.46 mL/min /1.73m 2 The eGFR is calcu lated from a serum creat inine using the CKD-E PI 2020 equat ion. Other varia bles requi red for the equat ion are gende r and age; this equat ion does not inclu de a race coeff icien t. This equat ion has simil ar overa ll perfo rmanc e to previ ous equat ions excep t value s may diffe r, in parti cular , in patie nts with highe r value s of eGFR and young er-ag ed adult s. Not Available [address] [place], [address] 12/04/2023 12:11:18 12/04/19 24 12/04/2023 COMPR EHENS BRISSA METAB OLIC PANEL total protein 7.0 g/dL 6.4-8. 2 normal Not Available [address] [place], [address] 12/04/2023 12:11:18 12/04/19 24 12/04/2023 COMPR EHENS BRISSA METAB OLIC PANEL albumin 3.1 g/dL 3.4-5. 0 low Not Available [address] [place], [address] 12/04/2023 12:11:18 12/04/19 24 12/04/2023 COMPR EHENS BRISSA METAB OLIC PANEL bilirubin, total 0.23 mg/dL 0.2-1. 0 normal Not Available [address] [place], [address] 12/04/2023 12:11:18 12/04/19 24 12/04/2023 COMPR EHENS BRISSA METAB OLIC PANEL alk phos 198 U/L 46-116 high Not Available [address] [place], [address] 12/04/2023 12:11:18 12/04/19 24 12/04/2023 COMPR EHENS BRISSA METAB OLIC PANEL sodium 143 mmol/ L 136-14 5 normal Not Available [address] [place], [address] 12/04/2023 12:11:18 12/04/19 24 12/04/2023 COMPR EHENS BRISSA METAB OLIC PANEL potassium 3.8 mmol/ L 3.5-5. 1 normal Not Available [address] [place], [address] 12/04/2023 12:11:18 12/04/19 24 12/04/2023 COMPR EHENS BRISSA METAB OLIC PANEL chloride 105 mmol/ L 98-107 normal Not Available [address] [place], [address] 12/04/2023 12:11:18 12/04/19 24 12/04/2023 COMPR EHENS BRISSA METAB OLIC PANEL CO2 28.3 mmol/ L 21.0-3 2.0 normal Not Available [address] [place], [address] 12/04/2023 12:11:18 12/04/19 24 12/04/2023 COMPR EHENS BRISSA METAB OLIC PANEL anion gap 9.7 mmol/ L 3-11 normal Not Available [address] [place], [address] 12/04/2023 12:11:18 12/04/19 24 12/04/2023 COMPR EHENS BRISSA METAB OLIC PANEL AST 35 U/L 15-37 normal Not Available Regina king [address] [place], [address] 12/04/2023 12:11:18 12/04/19 24 12/04/2023 COMPR EHENS BRISSA METAB OLIC PANEL ALT 68 U/L 14-59 high Not Available Regina king [address] [place], [address] 12/04/2023 12:11:18 12/04/19 24 12/04/2023 CRP, HIGH SENSI TIVIT Y CRP, high sensitivity >15.00 mg/L see note [facility] st order ing C-Duncan ctive Prote in Refer ence Range : Low Risk: <1.0 mg/L [place] ge Risk: 1.0 - 3.0 mg/L High Risk: >3.0 mg/L Indet ermin ate*: >10.0 mg/L *May be an indic ation of anoth er sourc e of infla mmati on or infec tion Test perfo rmed or refer red by [facility] [address], [place] [address] Not Available [address] [place], [address] 12/07/2023 08:28:05 12/07/19 24 12/07/2023 COMPL ETE BLOOD COUNT W/DIF F WBC 5.23 10_3/ uL 4.4-10 .8 normal Not Available [address] [place], [address] 12/07/2023 16:13:54 12/07/19 24 12/07/2023 COMPL ETE BLOOD COUNT W/DIF F RBC 4.20 10_6/ uL 3.93-5 .22 normal Not Available [address] [place], [address] 12/07/2023 16:13:54 12/07/19 24 12/07/2023 COMPL ETE BLOOD COUNT W/DIF F HGB 11.6 g/dL 11.2-1 5.7 normal Not Available [address] [place], [address] 12/07/2023 16:13:54 12/07/19 24 12/07/2023 COMPL ETE BLOOD COUNT W/DIF F HCT 36.8 % 36.0-4 6.0 normal Not Available [address] [place], [address] 12/07/2023 16:13:54 12/07/19 24 12/07/2023 COMPL ETE BLOOD COUNT W/DIF F MCV 88 fL 80-95 normal Not Available Regina king [address] [place], [address] 12/07/2023 16:13:54 12/07/19 24 12/07/2023 COMPL ETE BLOOD COUNT W/DIF F MCH 27.6 pg 27.0-3 3.0 normal Not Available [address] [place], [address] 12/07/2023 16:13:54 12/07/19 24 12/07/2023 COMPL ETE BLOOD COUNT W/DIF F MCHC 31.5 % 32.0-3 6.0 low Not Available [address] [place], [address] 12/07/2023 16:13:54 12/07/19 24 12/07/2023 COMPL ETE BLOOD COUNT W/DIF F RDW 15.8 % 11.7-1 4.6 high Not Available [address] [place], [address] 12/07/2023 16:13:54 12/07/19 24 12/07/2023 COMPL ETE BLOOD COUNT W/DIF F platelet count 295 10_3/ uL 130-40 0 normal Not Available [address] [place], [address] 12/07/2023 16:13:54 12/07/19 24 12/07/2023 COMPL ETE BLOOD COUNT W/DIF F MPV 10.1 fL 8.0-11 .0 normal Not Available [address] [place], [address] 12/07/2023 16:13:54 12/07/19 24 12/07/2023 COMPL ETE BLOOD COUNT W/DIF F neutrophils % 54.7 % Not Available [address] [place], [address] 12/07/2023 16:13:54 12/07/19 24 12/07/2023 COMPL ETE BLOOD COUNT W/DIF F lymphocytes % 34.4 % Not Available [address] [place], [address] 12/07/2023 16:13:54 12/07/19 24 12/07/2023 COMPL ETE BLOOD COUNT W/DIF F monocytes % 7.6 % Not Available [address] [place], [address] 12/07/2023 16:13:54 12/07/19 24 12/07/2023 COMPL ETE BLOOD COUNT W/DIF F eosinophils % 2.7 % Not Available [address] [place], [address] 12/07/2023 16:13:54 12/07/19 24 12/07/2023 COMPL ETE BLOOD COUNT W/DIF F basophils % 0.4 % Not Available [address] [place], [address] 12/07/2023 16:13:54 12/07/19 24 12/07/2023 COMPL ETE BLOOD COUNT W/DIF F immature grans % 0.2 % Not Available [address] [place], [address] 12/07/2023 16:13:54 12/07/19 24 12/07/2023 COMPL ETE BLOOD COUNT W/DIF F nucleated RBC 0.0 % 0.0-0. 3 normal Not Available [address] [place], [address] 12/07/2023 16:13:54 12/07/19 24 12/07/2023 COMPL ETE BLOOD COUNT W/DIF F absolute neutrophil count 2.86 10_3/ uL 1.2-6. 7 normal Not Available [address] [place], [address] 12/07/2023 16:13:54 12/07/19 24 12/07/2023 COMPL ETE BLOOD COUNT W/DIF F absolute lymphocyte count 1.80 10_3/ uL 1.2-3. 4 normal Not Available [address] [place], [address] 12/07/2023 16:13:54 12/07/19 24 12/07/2023 COMPL ETE BLOOD COUNT W/DIF F absolute monocyte count 0.40 10_3/ uL 0.1-0. 8 normal Not Available [address] [place], [address] 12/07/2023 16:13:54 12/07/19 24 12/07/2023 COMPL ETE BLOOD COUNT W/DIF F absolute eosinophil count 0.14 10_3/ uL 0.0-0. 7 normal Not Available [address] [place], [address] 12/07/2023 16:13:54 12/07/19 24 12/07/2023 COMPL ETE BLOOD COUNT W/DIF F absolute basophil count 0.02 10_3/ uL 0.0-0. 2 normal Not Available [address] [place], [address] 12/07/2023 16:13:54 12/07/19 24 12/07/2023 COMPR EHENS BRISSA METAB OLIC PANEL calcium 8.9 mg/dL 8.5-10 .1 normal Not Available [address] [place], [address] 12/07/2023 18:29:14 12/07/19 24 12/07/2023 COMPR EHENS BRISSA METAB OLIC PANEL glucose 83 mg/dL 74-106 normal Not Available Regina [address] [place], [address] 12/07/2023 18:29:14 12/07/19 24 12/07/2023 COMPR EHENS BRISSA METAB OLIC PANEL BUN 15 mg/dL 7-18 normal Not Available Regina [address] [place] [facility] [place], [address] 12/07/2023 18:29:14 12/07/19 24 12/07/2023 COMPR EHENS BRISSA METAB OLIC PANEL creatinine 0.3 mg/dL 0.55-1 .02 low Not Available [address] [place], [address] 12/07/2023 18:29:14 12/07/19 24 12/07/2023 COMPR EHENS BRISSA METAB OLIC PANEL estimated GFR 146.26 mL/min /1.73m 2 The eGFR is calcu lated from a serum creat inine using the CKD-E PI 2020 equat ion. Other varia bles requi red for the equat ion are gende r and age; this equat ion does not inclu de a race coeff icien t. This equat ion has simil ar overa ll perfo rmanc e to previ ous equat ions excep t value s may diffe r, in parti cular , in patie nts with highe r value s of eGFR and young er-ag ed adult s. Not Available [address] [place], [address] 12/07/2023 18:29:14 12/07/19 24 12/07/2023 COMPR EHENS BRISSA METAB OLIC PANEL total protein 7.2 g/dL 6.4-8. 2 normal Not Available [address] [place], [address] 12/07/2023 18:29:14 12/07/19 24 12/07/2023 COMPR EHENS BRISSA METAB OLIC PANEL albumin 3.1 g/dL 3.4-5. 0 low Not Available [address] [place], [address] 12/07/2023 18:29:14 12/07/1912/07/2023 COMPR EHENS BRISSA METAB OLIC PANEL bilirubin, total 0.19 mg/dL 0.2-1. 0 low Not Available [address] [place], [address] 12/07/2023 18:29:14 12/07/19 24 12/07/2023 COMPR EHENS BRISSA METAB OLIC PANEL alk phos 201 U/L 46-116 high Not Available [address] [place], [address] 12/07/2023 18:29:14 12/07/19 24 12/07/2023 COMPR EHENS BRISSA METAB OLIC PANEL sodium 145 mmol/ L 136-14 5 normal Not Available [address] [place], [address] 12/07/2023 18:29:14 12/07/19 24 12/07/2023 COMPR EHENS BRISSA METAB OLIC PANEL potassium 3.8 mmol/ L 3.5-5. 1 normal Not Available [address] [place], [address] 12/07/2023 18:29:14 12/07/19 24 12/07/2023 COMPR EHENS BRISSA METAB OLIC PANEL chloride 104 mmol/ L 98-107 normal Not Available [address] [place], [address] 12/07/2023 18:29:14 12/07/19 24 12/07/2023 COMPR EHENS BRISSA METAB OLIC PANEL CO2 27.1 mmol/ L 21.0-3 2.0 normal Not Available [address] [place], [address] 12/07/2023 18:29:14 12/07/19 24 12/07/2023 COMPR EHENS BRISSA METAB OLIC PANEL anion gap 13.9 mmol/ L 3-11 high Not Available [address] [facility] [place], [address] 12/07/2023 18:29:14 12/07/19 24 12/07/2023 COMPR EHENS BRISSA METAB OLIC PANEL AST 31 U/L 15-37 normal Not Available Regina king [address] [place] [facility] [place], [address] 12/07/2023 18:29:14 12/07/19 24 12/07/2023 COMPR EHENS BRISSA METAB OLIC PANEL ALT 60 U/L 14-59 high Not Available Regina king [address] [place], [address] 12/07/2023 18:29:14 12/07/19 24 12/07/2023 C-MARIELOS CTIVE PROTE IN C-reactive protein 3.29 mg/dL <or=0. 5 high Not Available [address] [facility] [place], [address] 12/07/2023 18:29:15 06/10/19 24 06/10/2023 x-ray imagi ng manny t Ro t Name: Tana Cavazos Unit #: [id number] Loc: DI Orderi ng Provid er: Caleb Lopez M.D. Accoun t #: [id number] Status : REG CLI Primar [...] t positi oning and scolio sis. 2. 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 3. No defini te acute fractu re is identi fied. DATA REPOSI TORY: RADIAT ION DOSE DELIVE RED: Ordere d By: Caleb Lopez M.D. CC: ------ ------ ------ ------ ------ ------ ------ ------ ------ ------ ------ ------ - Dictat ed By: Anurag Frost M.D. 1240 124 Transc ribed By: Anurag Frost 124 [...] at the addres s above. Thank- you. [facility] [address] [place], [address] 06/11/2023 05:27:44 06/10/19 24 06/10/2023 x-ray imagi ng repor t Patien t Name: Tana Cavazos Unit #: [id number] Loc: DI Orderi ng Provid er: GILSON BARKSDALE Accoun t #: [id number] Status : REG CLI Primar y Care Provid er: Nathalie Hendricks xochiltdeon Date of Exam: Sex: F Admiss ion [...] Dictat ed By: Anurag Frost M.D. 1243 1242 Transc ribed By: Anurag Frost 1243 This is privil eged, confid ential inform ation intend ed only for the provid er named. Any use or distri bution by any person other than this provid er is strict ly prohib ited. If you receiv e this report in error, please notify us immedi maxinely at [phone] and return the origin al report to us at the addres s above. Thank- you. [facility] [address], [place], [address] 06/11/2023 05:27:45 Result Notes None recorded. 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 Overall stable and well cared for. 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 Order mesh slings, caregive r will contact [facility] to see if the ones needed are availabl e through them since not able to get through [facility]. Needs new TLSO for her back, current one no longer fits due to weight gain, breast developm ent, recent surgerie s. Order new TLSO through [facility], do referral to PT for new educatio n on TLSO once fitted as well as new wheelcha ir evaluati on and then will order wheelcha ir with recommen dations for device specific ations. Good supporti ve foot wear and keeping feet elevated off surfaces . has heel protecto rs as well. Continue with good perianal hygiene. Continue current bowel regimen since overall effectiv e, push fluid intake and high fiber foods. Encour ed good dental hygiene and see dentist routinel y. Problem Code: G82.50; Problem Code Type: ICD-10; [address], [place], [address] , [facility] 3 06:06:34 Scoliosi s deformit y of spine 190449606 Active 2016 Problem Code: M41.9; Problem Code Type: ICD-10; [address], [place], [address] , [facility] 3 06:06:35 Spasm 73558501 Active 201603/02/20 17 - Comments only - Emelyn Easley MD - Patient will need on going physical therapy to help prevent worsenin g spastici ty and contract ures. Problem Code: R25.2; Problem Code Type: ICD-10; [address], [place], [address] , [facility] 3 06:06:35 Idiopath ic urticari a 26502449 Active 2016 Problem Code: L50.1; Problem Code Type: ICD-10; [address], [place], [address] , [facility] 3 06:06:35 Supraven tricular tachycar belinda 8259195 Active 201606/08/19 18 - Comments only - Lorna Martinez APRN - monitor for now. Problem Code: I47.1; Problem Code Type: ICD-10; [address], [place], [address] , [facility] 3 06:06:35 Traumati c or non-trau matic injury 942284085 Active 2016 Problem Code: T14.90; Problem Code Type: ICD-10; LORNA MARTINEZ APRN [address], [place], [address] , [facility] 3 06:06:35 Disorder of muscle 530734393 Active 201610/21/19 17 - Comments only - Emelyn Easley MD - This causes some constipa tion that has been improved by miralax. 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 She is here with her 3 care givers for a well exam. They were able to get her on the exam table and she tolerate d the exam fairly well. h has never been sexually active no pap was needed. Her immuniza tion are up to date. She sees her dentist, eats healthy food and they follow all recommen ded medical care. 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 Discusse d common side effects. Rec'd verbal consent to proceed. Right ear cerumen came out with irrigati on. Left cerumen came out with irrigati on. No manual removal with forceps required . She tolerate d procedur e well. Right EAC is clear, TM is transluc ent, mobile with good cone of light. Left EAC is clear, TM is transulc ent, mobile with good cone of light. Problem Code: H61.23; Problem Code Type: ICD-10; Not Available [facility] 3 03:53:19 Impacted cerumen 42934210 Active 201612/04/19 17 - Comments only - Jade he EXECUTIVE COORDINATOR - - Cerumen not impacted today. Recommen ded to continue regular checks at future visits, discusse d appropri ate ear hygiene, and advised f/u for developm ent of symptoms such as ear pulling/ pain or trouble hearing. The patient verbaliz ed understa nding and agreemen t to this care plan. Problem Code: H61.20; Problem Code Type: ICD-10; LORNA MARTINEZ APRN [address], [place], [address] , [place] [facility]. 3 06:06:35 Pre-surg isabel evaluati on Completed 201601/09/2017 12/27/19 17 - Comments only - Jade he EXECUTIVE COORDINATOR - - Pt presents for pre-op physical as she is having a DEXA scan on 12/30 at [facility] and they have requeste d that she has a physical within the last 30 days. There are no concerns raised by her aid who is with her, and no findings on exam that suggest she should not move forward with procedur e as schedule d. Problem Code: Z01.818; Problem Code Type: ICD-10; Not Available [facility] 3 03:53:19 Contract ure of joint of hand 44687361 Active 201606/08/19 18 - Comments only - Lorna Martinez APRN - continue wearing splint during the day. Wash cloth in her hand while sleeping . Continue with routine stretchi ng and movement as able. Problem Code: M24.549; Problem Code Type: ICD-10; [address], [place], [address] , [facility] 3 06:06:35 History of skin and/or subcutan eous tissue disease [id number] Active 201706/08/19 18 - Comments only - Lorna Martinez APRN - has seen podiatry . Monitor feet routinel y. Problem Code: Z87.2; Problem Code Type: ICD-10; [address], [place], [address] , [facility] 3 06:06:35 Disorder of tooth developm ent [id number] Completed 201703/11/2018 Problem Code: K00.9; Problem Code Type: ICD-10; Not Available [facility] 3 03:53:19 Exposure to communic able disease Completed 202004/03/2021 Problem Code: Z20.828; Problem Code Type: ICD-10; Not Available [facility] 3 03:53:20 Localize d eruption of skin [id number] Completed 202112/08/2021 Problem Code: R21; Problem Code Type: ICD-10; Not Available [facility] 3 03:53:20 Disorder of skin appendag e [id number] Completed 202112/08/2021 Problem Code: L73.9; Problem Code Type: ICD-10; Not Available [facility] 3 03:53:20 Sepsis caused by Escheric hia coli 312294796 Active 202208/08/19 23 - Comments only - Lorna Martinez APRN - continue mgmt through [facility]. Blood drawn, may not be enough of sample but will send. If not enough, will need to come to office. drawn CBCD, CRP, CMP. 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 [address], [facility] [address] , [facility] 4 07:57:05 Osteomye litis 82491400 Active 2022 Problem Code: M86.9; Problem Code Type: ICD-10; [address], [facility] [id number] 3 06:06:35 Congenit al deformit y of spine 846112897 Active 2022 Problem Code: Q67.5; Problem Code Type: ICD-10; LORNA MARTINEZ APRN [address], [place], [address] , [facility] 3 06:06:35 Chronic osteomye litis with draining sinus 104147064 Active 2022 Problem Code: M86.48; Problem Code Type: ICD-10; LORNA MARTINEZ APRN [address], [place], [address] , [facility] 3 06:06:35 Fever 068468739 Completed 202011/07/2021 Problem Code: R50.9; Problem Code Type: ICD-10; Not Available [facility] 3 03:53:22 Pain of toe of left foot 23148698003 9108 Completed 201603/02/2017 Problem Code: M79.675; Problem Code Type: ICD-10; Not Available [facility] 3 03:53:23 Tinea pedis 1696932 Completed 201607/17/2020 Problem Code: B35.3; Problem Code Type: ICD-10; Not Available [facility] 3 03:53:23 Device in situ 308110806 Completed 201609/02/2018 Problem Code: Z97.8; Problem Code Type: ICD-10; Not Available [facility] 3 03:53:24 Closed fracture of lower leg 341629715 Completed 201607/17/2020 Problem Code: S82.90xD ; Problem Code Type: ICD-10; Not Available [facility] 3 03:53:27 Pain of right wrist 76454759484 9100 Completed 202011/07/2021 Problem Code: M25.531; Problem Code Type: ICD-10; Not Available [facility] 3 03:53:27 Disorder of skin and/or subcutan eous tissue 39747692 Completed 201807/17/2020 Problem Code: L98.9; Problem Code Type: ICD-10; Not Available [facility] 3 03:53:28 Pain in right hip joint 60058295246 9102 Completed 202011/07/2021 Problem Code: M25.551; Problem Code Type: ICD-10; Not Available [facility] 3 03:53:30 Muscle pain 41559096 Completed 202011/07/2021 Problem Code: M79.10; Problem Code Type: ICD-10; Not Available [facility] 3 03:53:32 Pain in right lower limb 330877770 Completed 201607/17/2020 Problem Code: M79.604; Problem Code Type: ICD-10; Not Available [facility] 3 03:53:32 Vaccine adverse reaction 608910902 Completed 201911/07/2021 Not Available [facility] 3 03:53:33 Chronic ulcer of foot 698014061 Completed 201707/17/2020 Problem Code: L97.529; Problem Code Type: ICD-10; Not Available [facility] 3 03:53:33 Accident al fall Completed 201807/17/2020 Not Available [facility] 3 03:53:34 Cellulit is of toe 78068697 Completed 201605/08/2017 Problem Code: L03.039; Problem Code Type: ICD-10; Not Available [facility] 3 03:53:35 Pre-surg isabel evaluati on Completed 202202/22/2023 Problem Code: Z01.818; Problem Code Type: ICD-10; Not Available [facility] 4 05:38:03 Intertri go 96732457 Active 2023 Martha Lopez RN [facility], [facility] 4 09:39:19 Thromboc ytosis 6365979 Active [address], [place], [address] , [facility]. 4 21:17:57 Impacted cerumen 38803291 Active 2023 LORNA MARTINEZ, [address] [address], [place], [address] , [facility] 4 10:33:20 Notes:*Problem Name: Oliguri a and anuria *Problem Status: active *Comments: *Problem Code: R34 *Problem Code Type: ICD-10 *Note Date: 03/04/2018 Problem Notes None recorded. Procedures Surgical History Date Name Laterality Status Provider Name and Address Organization Details Recorded Time 11/10/19 18 hysteroscopic endometrial laser ablation completed MIKEY VALLADARES, [facility] 12/25/2023 10:53:02 Imaging Results Imaging Date Name Status LastModified by Organiz ation Details LastModified Time 06/10/2023 x-ray imaging report completed [address] [place], [address] 06/11/2023 05:27:44 06/10/2023 x-ray imaging report completed [address] [place], [address] 06/11/2023 05:27:45 Procedure Notes None recorded. Medical Equipment None Reported. Allergies Allergen ID Allergen Name Allergen Category Reaction Reaction Severity Criticality Documentation Date Start Date Code Code System Note Provider Name and Address Organization Details Recorded Time 02132 fluoxetin e hydrochlo ride medicatio n other mild Not available 03/06/20232018 59893 4 RxNorm unsur e Aller gyRea ction : 'unsu re'; Not Available [facility] 3 16:14:36 53409 doxycycli ne Not available rash severe Not available 03/06/20232022 3640 RxNorm Aller gyRea ction : 'Rash , Gastr ointe avelino l,'; Not Available [facility] 3 16:14:36 Medications Name Sig Start Date Stop Date Status Note LastModified by Organization Details LastModified Time acetamino phen 325 mg tablet Take 3 tablet by mouth every eight hours as needed active Per d/c summary 02/25/23 Not Available Not Available [...] eight hours as needed 07/23 completed Per d/c summary 02/25/23 Not Available Not Available [...] daily to affected area 07/23 completed Per d/c summary 02/25/23 Not Available Not Available [...] TABLET BY MOUTH Three TIMES A DAY 12/24 completed Not Available Not Available Not Available [...] Not Available Not Available No t Available lorazepam 1 mg tablet 1 tablet [...] three times a day 09/27 completed last [facility] Infectio us note stated Bactrim DS 800-160m g 1 BID Not Available Not Available Not Available sodium chloride 0.9 % (flush) injection syringe Infuse 10ml into venous catheter 2 times a day 07/23 completed Per d/c summary 02/25/23 Not Available Not Available Not Available ceftriaxo ne 2 gram/50 mL in dextrose (iso-osm) intraveno us piggyback Infuse 2 gram intraven ously once a day Infuse 50ml (2g total) into a venous catheter daily 07/23 completed Per d/c summary 02/25/23 Not Available Not Available Not Available cranberry 1 gummy daily active Not Available Not Available No t Available iron 1 gummy daily active Not Available Not Available No t Available Bactrim DS 1 tablet twice a day for oral step down. ( 800mg/16 0mg) 2023 active Infectio us Disease Not Available Not Available Not Available cephalexi n 2gm with Heparin and Saline daily 12/24 completed Not Available Not Available Not Available Multivita l 0.4 mg-162 mg-18 mg [...] 12 patch free hours) 07/23 completed Per d/c summary 02/25/23 Not Available Not Available [...] Updated DateTime 04/24/2023 157.48 cm 22.7 kg/m2 70190.45 g 98 mm[Hg] 68 mm[Hg] [facility] 3 09:07:06 Date Recorded Body height Body mass index (BMI) Body weight Oxygen saturation Oxygen saturation in Arterial blood by Pulse oximetry Heart rate Systolic blood pressure Diastolic blood pressure Provider Name and Address Organization Details Last Updated DateTime 4 157.48 cm 22.7 kg/m2 05128.4 5 g 99 % 99 % 86 /min 112 mm[Hg] 74 mm[Hg] [facility] 4 08:53:15 Date Recorded Body height Body mass index (BMI) Body weight Body temperature Oxygen saturation Oxygen saturation in Arterial blood by Pulse oximetry Heart rate Systolic blood pressure Diastolic blood pressure Provider Name and Address Organization Details Last Updated DateTime 4 157.48 cm 22.6 kg/m2 59665.9 6 g 97.9 [degF] 97 % 97 % 110 /min 98 mm[Hg] 64 mm[Hg] [facility] 4 10:12:40 Date Recorded Body height Body temperature Oxygen saturation Oxygen saturation in Arterial blood by Pulse oximetry Heart rate Systolic blood pressure Diastolic blood pressure Provider Name and Address Organization Details Last Updated DateTime 4 157.48 cm 96.2 [degF] 99 % 99 % 68 /min 110 mm[Hg] 72 mm[Hg] [facility] 4 10:37:40 Social History None recorded. Functional Status None recorded. Mental Status None recorded. Family History Nothing Reported Notes:*Problem: mom - living - eye condition [...] Recorded Time MMR 09/16/1994 completed Not Available [facility] 03:50:44 MMR 03/20/1998 completed Not Available [facility] 03:50:45 DTaP, unspecified formulation 05/15/1994 completed Not Available [facility] 03/06/2023 03:50:45 DTaP, unspecified formulation 1993 completed Not Available [facility] 03/06/2023 03:50:45 DTaP, unspecified formulation 1993 completed Not Available [facility] 03/06/2023 03:50:45 DTaP, unspecified formulation 03/07/1994 completed Not Available [facility] 03/06/2023 03:50:45 DTaP, unspecified formulation 03/20/1998 completed Not Available [facility] 03/06/2023 03:50:45 meningococcal ACWY, unspecified formulation 09/15/2011 completed Not Available [facility] 03/06/2023 03:50:46 Td (adult), 5 Lf tetanus toxoid, preservative free, adsorbed 10/20/2016 completed Not Available [facility] 03/06/2023 03:50:46 Tdap 10/22/2018 completed Not Available [facility] 03:50:46 Tdap 11/24/2006 completed Not Available [facility] 03:50:46 Influenza, split virus, quadrivalent, PF 01/15/2021 completed Not Available [facility] 03/06/2023 03:50:47 Influenza, split virus, quadrivalent, PF 02/17/2022 completed Not Available [facility] 03/06/2023 03:50:47 Influenza, split virus, quadrivalent, PF 02/28/2019 completed Not Available [facility] 03/06/2023 03:50:48 Influenza, split virus, quadrivalent, PF 04/02/2020 completed Not Available [facility] 03/06/2023 03:50:48 Influenza, split virus, quadrivalent, preservative 03/02/2017 completed Not Available [facility] 03/06/2023 03:50:48 Influenza, split virus, quadrivalent, preservative 03/04/2018 completed Not Available [facility] 03/06/2023 03:50:48 Hib, unspecified formulation 1993 completed Not Available [facility] 03/06/2023 03:50:48 Hib, unspecified formulation 09/16/1994 completed Not Available [facility] 03/06/2023 03:50:49 Hib, unspecified formulation 1993 completed Not Available [facility] 03/06/2023 03:50:49 Hib, unspecified formulation 03/07/1994 completed Not Available [facility] 03/06/2023 03:50:49 COVID-19, mRNA, LNP-S, PF, 100 mcg/0.5mL dose or 50 mcg/0.25mL dose 08/21/2020 completed Not Available [facility] 03/06/20 03:50:49 COVID-19, mRNA, LNP-S, PF, 100 mcg/0.5mL dose or 50 mcg/0.25mL dose 09/18/2020 completed Not Available [facility] 03/06/20 03:50:49 COVID-19, mRNA, LNP-S, PF, 100 mcg/0.5mL dose or 50 mcg/0.25mL dose 04/10/2021 completed Not Available [facility] 03/06/20 03:50:50 varicella 11/24/2006 completed Not Available [facility] 03:50:50 varicella 01/21/1999 completed Not Available [facility] 03:50:50 SARS-COV-2 (COVID-19) vaccine, UNSPECIFIED 09/25/2021 completed Not Available [facility] 03/06/2023 03:50:50 Hep B, unspecified formulation 1993 completed Not Available [facility] 03/06/2023 03:50:51 Hep B, unspecified formulation 1993 completed Not Available [facility] 03/06/2023 03:50:51 Hep B, unspecified formulation 03/07/1994 completed Not Available [facility] 03/06/2023 03:50:52 Hep A, unspecified formulation 06/22/2000 completed Not Available [facility] 03/06/2023 03:50:52 Hep A, unspecified formulation 11/07/1997 completed Not Available [facility] 03/06/2023 03:50:52 influenza, unspecified formulation 01/18/2016 completed Not Available [facility] 03/06/2023 03:50:52 polio, unspecified formulation 05/15/1994 completed Not Available [facility] 03/06/2023 03:50:52 polio, unspecified formulation 1993 completed Not Available [facility] 03/06/2023 03:50:52 polio, unspecified formulation 09/15/1994 completed Not Available [facility] 03/06/2023 03:50:53 polio, unspecified formulation 03/07/1994 completed Not Available [facility] 03/06/2023 03:50:53 Influenza, split virus, quadrivalent, PF 01/23/2023 completed Not Available [facility] 05/08/2023 05:31:40 Past Encounters Encounter ID Performer Location Encounter Start Date Encounter Closed Date Diagnosis/Indication Diagnosis SNOMED-CT Code Diagnosis ICD10 Code [id number] LORNA MIC[address] [address] 04/24/2023 08:44:16 04/24/2023 10:09:30 Tetraplegia 65394590 G82.50 Osteomyelitis 05354392 M 86.9 High enzym e level in serum 873847884 R74.9 [id number] LORNA MICHEL[address] [address] 07/24/2023 08:40:55 07/24/2023 09:38:18 Tetraplegia 42594755 G82.50 Osteomyelitis 61791817 M 86.9 High enzym e level in serum 613424073 R74.9 [id number] LORNA MICHELLE[address] [address] 11/10/2023 09:56:28 11/10/2023 12:18:07 Tetraplegia 54015753 G82.50 Osteomyelitis 55883852 M 86.9 High enzym e level in serum 055556615 R74.9 Vitamin D deficiency 347 [address] E55.9 Impacted cerumen 3813067 6 H61.23 [id number] [address] [address]ART[address]ZD[address] [address] 12/25/2023 10:23:26 12/25/2023 10:57:24 Tetraplegia 05105935 G82.50 Osteomyelitis 97844311 M 86.9 High enzym e level in serum 333636285 R74.9 Vitamin D deficiency 347 82218 E55.9 Impacted cerumen 0962282 6 H61.23 Health Concerns Section Related Observation LastModified by Organization Detai ls LastModified Time None Recorded Concern Status LastModified by Organization Details LastModified Time None Recorded Advance Directives Directive None Recorded Payers Encounter Date Sequence Insurance Name Policy Number Policy Green Covered Member ID Green Member ID Guarantor Name 04/24/2023 1 [employer] [place] [employer] ([employer]) Tana Cavazos [id number] Tana Cavazos 07/24/2023 1 [employer] [place] [place]) Tana Cavazos [id number] Tana Cavazos 11/10/2023 1 [employer] [place] [place]) Tana Cavazos [id number] Tana Cavazos 12/25/2023 1 [employer] [place] ([employer]) Tana Cavazos [id number] Tana Cavazos Notes Date Note Type Note [...] -- Has been working with surgeon at and ID at [facility]. -- Has elevated [...] increasing. She had abdominal US done at [facility] 03/28/23 and this [...] TID did help with this. LORNA MARTINEZ, [employer] [address], [place], [address], [place] [facility] 04/24/2023 10:55:28 07/24/2023 text/html HPI Notes: Is [...] -- Has been working with surgeon at and ID at [facility]. -- Has elevated [...] increasing. She had abdominal US done at [facility] 03/28/23 and this [...] July and see how she does. LORNA MICHELLE, [employer]PER[employer] [address], [place], [address], [facility]. 07/24/2023 09:32:54 11/10/2023 text/html [...] -- Has been working with surgeon at and ID at [facility]. -- Has elevated inflammatory markers that are gradually rising, specifically CRP and ESR -- Normal CK -- LFTs are elevated; initially alk phos was primarily elevated, but over the last few months her AST and ALT have been increasing. She had abdominal US done at [facility] 03/28/23 and this [...] has full guardianship of Kalyan. LORNA MARTINEZ, [employer]PER[employer] [address], [place], [address], [facility]. 11/10/2023 12:42:59 12/25/2023 text/html HPI Notes: Is he re today for follow-up of: Is here with her guardian Fannie. Only concern is a little more of an indent in her back near the drain. - FU cognitive dysfunction, quadriplegia, scoliosis with [...] areas. Contractures, caregivers stretch as she tolerates. Last visit her baclofen dose was increased to 15mg TID -- Update 12.25.23. muscles/ spasticity is pretty good some improvements with the increase in baclofen. Has been more relaxed. No obvious pain. No open sores. No issues with urination. Appetite is pretty good. - Chronic constipation. Saw gastroenterology 04/18, was [...] needed bisacodyl. Doing senna and miralax daily. -- update 12.25.23. bowel movements are good; better when getting saline. bowel movements are daily to QOD. no straining to have bowel movements. has not needed any enema. Continues miralax daily. - Osteomyelitis of spine. Since May. Has had inpatient stays and has been outpatient on antimicrobials. -- Had surgery 02/11/23 and was discharged 02/25. Pelvic screw revision and washout with complex plastics closure. Had a PICC line placed and was on IV antimicrobials for about 6-8 weeks. IV abx stopped 03/25/23. -- Has elevated inflammatory markers that are gradually rising, specifically CRP and ESR. Normal CK -- LFTs are elevated; initially alk phos was primarily elevated, but over the last few months her AST and ALT have been increasing. She had abdominal US done at [facility] 03/28/23 and this was normal. ID felt the elevated LFTs was r/t her APAP use and per their note recommended to decrease. -- ID 03/19, was recommended to take bactrim and if CRP did not trend down, then would need re-evaluation with imaging. ID 03/26/23, concerns about rising inflammatory markers. [...] discharged from provider in [place]/ the surgeon. -- Saw ID last 12.03.23. IV ceftriaxone until 12.10, then stop. Remove PICC after 12.10. 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 Labs repeat in 1 month for CBCD, CMP, CRP. Fannie has full guardianship of Kalyan. Air mattress has popped. LORNA MARTINEZ, F[employer]PER[employer] [address], [place], [address], [facility]. 12/25/2023 12:05:34 OBGyn Episode No OBEpisode recorded.
--- OUTSIDE RECORDS SUMMARY | 2023-12-29 14:02 | XMS_ITS | Encounter Summary ---
Author Organization [facility] Address [facility] [place] [address] Care Team Providers Care Data Processing Control Clerk Name Role Phone Lorna Bal APRN Primary Care Provider [phone] Reason for Visit * Consultation (Routine) - Closed Specialty Diagnoses / Procedures Referred By Contac t Referred To Contact Infectious Diseases Diagnoses Spinal abscess Nikolay Toledo MD [facility] [place] [address] Nikolay Toledo MD [facility] [place] [address] Referral ID Status Reason Start Date Expiration Date V isits Requested Visits Authorized [id number] Closed Assume Subset of Care 11/02/2023 11/01/2024 1 1 Encounter Details Date Type Department Care Team (Late st Contact Info) Description 12/03/2023 12:30 PM EDT Office [place] [address] Nikolay Toledo MD [facility] [place] [address] 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 Dx); terminal carman 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 Social History Tobacco Use Types Packs/Day Years Used Date Smoking Tobacco: Never Passive Smoke Exposure: Never Smokeless Tobacco: Never Comments:NO SMOKERS IN THE H OME Alcohol Use Standard Drinks/Week Comments No 0 (1 standard drink = 0.6 oz pur e alcohol) [facility] Utilities Answer Date Recorded In the [...] [place] in 2010, who was admitted to [facility] in May 2022 for redness and tenderness [...] site, for which she was readmitted to [facility] on 07/22 to manage this issue. On arrival to [facility], she was afebrile without leukocytosis. Repeat of [...] evaluated by spine surgery multiple times at [facility] and was not deemeda candidate for operative intervention. Then, she was seen at [facility] for a second surgical opinion. On 08/27/2022, superficialCxs there revealed growth of Staph hemolyticus and capitis. She was initially continued on doxycycline for this but subsequently switched to TMP-SMX in early September 2022 given ?possible allergic reaction. She also did undergo re-insertion of IR drains on 09/26, with Cxs again returning negative. Eventually, she got a third surgical opinion at [facility] in [place] given the need for plastics closure of [...] continued to follow in ID clinic at [facility]. We discussed the equipoise as to whether [...] need to be placed back onto a group home suppressive antibiotic. Today, patient presents to ID clinic for [id number] visit, accompanied by her caregivers, Liz Mckay. [...] [Transparent Dressings] Itching and Dermatitis Please use [id number] Cyclobenzaprine Other Reaction(s): Not available Doxycycline Other [...] and washout with complex plastics closure at [facility] in [place] on 02/11/23, after which she was treated with 6 weeks of IV vancomycin + pip-tazo. Then, she was placed on suppressive TMP-SMX to complete a total of ~7 months of treatment, which was eventually stopped on 09/24/23. She was re-admitted to [facility] in early October 2023 with erythema and [...] TMP-SMX dose to a lower dose for group home suppression ofinfection, such as 1 DS tab daily, if all continues to go well. I spent a total of 35 minutes on the date of service on the [id number] encounter, chart review, clinical decision making, documentation, [...] PM EST Office [place] [address] Nikolay Toledo MD [facility] [place] [address] documented as of this encounter Visit Diagnoses Diagnosis Spinal abscess- Primary Acute osteomyelitis, other specified site terminal carman 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 Encounter for long-term (current) use of antibiotics documented in this encounter Care Teams Data Processing Control Clerk Relationship Specialty Start Date End Date Lorna Bal APRN [address] [place] [address] PCP - General Family Medicine 05/27/18 documented as of this encounter
--- OUTSIDE RECORDS SUMMARY | 2023-12-29 14:02 | XMS_ITS | Continuity of Care Document ---
Author Organization [facility] Address [address] [place] [address] Assessment Encounter Date Assessment Date Assessment LastModified by Organization Details LastModified Time 11/10/2023 11/10/2023 The total time devoted to today's encounter, including both the qzrv-yd-fbyi time with the patient and/or family/caregiv er and tcy-rmeo-ng-fa ce time I personally spent is 35 minutes. Hospital admission: 7.3.204 Hospital discharge 7.9.24. Chronic personal care service provider reach out 7.10.24 FU in office: 7.16.24 [...] 024 [facility] [place], [address], 11/10/2023 10:38:18 cholecalc iferol (vitamin D3) 125 mcg (5,000 unit) tablet 2023 024 [facility] [address] [place], [address], 11/10/2023 11:06:20 baclofen 15 mg tablet [address] [facility] [address] [place], [address], 11/10/2023 10:38:17 Patient TargetsNo targets recorded. Patient InstructionsNo instructions recorded. Reason for Referral Orthopedic Surgeon Referral for Tetraplegia 2nd time sending for spasms to the right wrist/ thumb. Referring Physician: [facility], Encounter Date: 07/24/2023 Orthopedic Surgeon Referral for Contracture of joint of hand hand specialist for right thumb pain and contracture of hand Referring Physician: Lorna Martinez [facility], Encounter Date: 07/28/2023 Problems Name Problem SNOMED Code Status Onset Date Resolution Date Notes Provider Name and Address Organization Details Recorded Time Consciou sness and/or awarenes s finding 224796304 Active 2016 Problem Code: R41.89; Problem Code Type: ICD-10; LORNA MARTINEZ, [place] [address], [place], [address] , [facility] 06:06:35 Tetraple janet 13337823 Active 201609/03/19 19 - Comments only - Lorna Martinez POUCH MAKER - with cognitiv e dysfunct ion, scoliosi s, spastici ty, hypotnoi a, chronic pains, contract ures with pressure ulcers to bilatera l heels. Overall stable and well cared for. 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 Order mesh slings, caregive r will contact [facility] to see if the ones needed are availabl e through them since not able to get through [facility]. Needs new TLSO for her back, current [...] push fluid intake and high fiber foods. [facility] ed good dental hygiene and see dentist routinel y. Problem Code: G82.50; Problem Code Type: ICD-10; [address], [place], [address] , [facility] 3 06:06:34 Scoliosi s deformit y of spine 647826649 Active 2016 Problem Code: M41.9; Problem Code Type: ICD-10; [address], [place], [address] , [facility] 3 06:06:35 Spasm 45196916 Active 201603/02/20 17 - Comments only - Emelyn Easley MD - Patient will need on going physical therapy to help prevent worsenin g spastici ty and contract ures. Problem Code: R25.2; Problem Code Type: ICD-10; [address], [place], [address] , [facility] 3 06:06:35 Idiopath ic urticari a 91035974 Active 2016 Problem Code: L50.1; Problem Code Type: ICD-10; [address], [place], [address] , [facility] 3 06:06:35 Supraven tricular tachycar belinda 6312374 Active 201606/08/19 18 - Comments only - Lorna Martinez APRN - monitor for now. Problem Code: I47.1; Problem Code Type: ICD-10; [address], [place], [address] , [facility] 3 06:06:35 Traumati c or non-trau matic injury 030359985 Active 2016 Problem Code: T14.90; Problem Code Type: ICD-10; LORNA MARTINEZ APRN [address], [place], [address] , [facility] 3 06:06:35 Disorder of muscle 698528062 Active 201610/21/19 17 - Comments only - Emelyn Easley MD - This causes some constipa tion that has been improved by miralax. Problem Code: M62.9; Problem Code Type: ICD-10; LORNA MARTINEZ APRN [address], [place], [address] , [facility] 3 06:06:35 Adult health examinat ion Active [...] she tolerate d the exam fairly well. Jairon has never been sexually active no pap was needed. Her immuniza tion are up to date. She sees her dentist, eats healthy food and they follow all recommen ded medical care. Problem Code: Z00.00; Problem Code Type: ICD-10; LORNA MARTINEZ APRN [address], [place], [address] , [facility] 3 06:06:35 Impacted cerumen of bilatera l ears 14553529724 64142 Completed 201609/29/2016 09/16/19 17 - Comments only - Jade he INDUSTRIAL ECOLOGY TECHNICIAN - Rev'd procedur e for cerumen removal [...] Code Type: ICD-10; Not Available [facility] 3 03:53:19 Impacted cerumen 71847809 Active 201612/04/19 17 - Comments only - Jade Harrisonqamar he INDUSTRIAL ECOLOGY TECHNICIAN - - Cerumen not impacted today. Recommen ded to continue regular checks at future visits, discusse d appropri ate ear hygiene, and advised f/u for developm ent of symptoms such as ear pulling/ pain or trouble hearing. The patient verbaliz ed understa nding and agreemen t to this care plan. Problem Code: H61.20; Problem Code Type: ICD-10; LORNA MARTINEZ APRN [address], [place], [address] , [place] [facility] 3 06:06:35 Pre-surg isabel evaluati on Completed 201601/09/2017 12/27/19 17 - Comments only - Jade he INDUSTRIAL ECOLOGY TECHNICIAN - - Pt presents for pre-op physical as she is having a DEXA scan on 12/[address] [facility] and they have requeste d that she has a physical within the last 30 days. There are no concerns raised by her aid who is with her, and no findings on exam that suggest she should not move forward with procedur e as schedule d. Problem Code: Z01.818; Problem Code Type: ICD-10; Not Available [facility] 3 03:53:19 Contract ure of joint of hand 09040670 Active 201606/08/19 18 - Comments only - Lorna Martinez APRN - continue wearing splint during the day. Wash cloth in her hand while sleeping . Continue with routine stretchi ng and movement as able. Problem Code: M24.549; Problem Code Type: ICD-10; [address], [place], [address] , [facility] 3 06:06:35 History of skin and/or subcutan eous tissue disease 68688254651 9105 Active 201706/08/19 18 - Comments only - Lorna Martinez APRN - has seen podiatry . Monitor feet routinel y. Problem Code: Z87.2; Problem Code Type: ICD-10; LORNA MARTINEZ APRN [address], [place], [address] , [facility] 3 06:06:35 Disorder of tooth developm ent 145015186 Completed 201703/11/2018 Problem Code: K00.9; Problem Code Type: ICD-10; Not Available [facility] 3 03:53:19 Exposure to communic able disease Completed 202004/03/2021 Problem Code: Z20.828; Problem Code Type: ICD-10; Not Available [facility] 3 03:53:20 Localize d eruption of skin 777021992 Completed 202112/08/2021 Problem Code: R21; Problem Code Type: ICD-10; Not Available [facility] 3 03:53:20 Disorder of skin appendag e 743316026 Completed 202112/08/2021 Problem Code: L73.9; Problem Code Type: ICD-10; Not Available [facility] 3 03:53:20 Sepsis caused by Escheric hia coli 737984565 Active 202208/08/19 23 - Comments only - Lorna Martinez APRN - continue mgmt through [facility] [address]. Blood drawn, may not be enough of sample but will send. If not enough, will need to come to office. drawn CBCD, CRP, CMP. 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 [address], [facility] [address] , [facility] 4 07:57:05 Osteomye litis 45967313 Active 2022 Problem Code: M86.9; Problem Code Type: ICD-Kylie; [address], [facility] [address] [place] [address] 3 06:06:35 Congenit al deformit y of spine 643720342 Active 2022 Problem Code: Q67.5; Problem Code Type: ICD-10; [address], [place], [address] , [facility] 3 06:06:35 Chronic osteomye litis with draining sinus 516895577 Active 2022 Problem Code: M86.48; Problem Code Type: ICD-10; LORNA MARTINEZ APRN [address], [place], [address] , [facility] 3 06:06:35 Fever 610710339 Completed 202011/07/2021 Problem Code: R50.9; Problem Code Type: ICD-10; Not Available [facility] 3 03:53:22 Pain of toe of left foot 37759436675 9108 Completed 201603/02/2017 Problem Code: M79.675; Problem Code Type: ICD-10; Not Available [facility] 3 03:53:23 Tinea pedis 7038859 Completed 201607/17/2020 Problem Code: B35.3; Problem Code Type: ICD-10; Not Available [facility] 3 03:53:23 Device in situ 289232244 Completed 201609/02/2018 Problem Code: Z97.8; Problem Code Type: ICD-10; Not Available [facility] 3 03:53:24 Closed fracture of lower leg 888571813 Completed 201607/17/2020 Problem Code: S82.90xD ; Problem Code Type: ICD-10; Not Available [facility] 3 03:53:27 Pain of right wrist 76257066124 9100 Completed 202011/07/2021 Problem Code: M25.531; Problem Code Type: ICD-10; Not Available [facility] 3 03:53:27 Disorder of skin and/or subcutan eous tissue 76354923 Completed 201807/17/2020 Problem Code: L98.9; Problem Code Type: ICD-10; Not Available [facility] 3 03:53:28 Pain in right hip joint 79351429378 9102 Completed 202011/07/2021 Problem Code: M25.551; Problem Code Type: ICD-10; Not Available [facility] 3 03:53:30 Muscle pain 60726984 Completed 202011/07/2021 Problem Code: M79.10; Problem Code Type: ICD-10; Not Available [facility] 3 03:53:32 Pain in right lower limb 678983173 Completed 201607/17/2020 Problem Code: M79.604; Problem Code Type: ICD-10; Not Available [facility] 3 03:53:32 Vaccine adverse reaction 732863197 Completed 201911/07/2021 Not Available [facility] 3 03:53:33 Chronic ulcer of foot 532795022 Completed 201707/17/2020 Problem Code: L97.529; Problem Code Type: ICD-10; Not Available [facility] 3 03:53:33 Accident al fall Completed 201807/17/2020 Not Available [facility] 3 03:53:34 Cellulit is of toe 48651890 Completed 201605/08/2017 Problem Code: L03.039; Problem Code Type: ICD-10; Not Available [facility] 3 03:53:35 Pre-surg isabel evaluati on Completed 202202/22/2023 Problem Code: Z01.818; Problem Code Type: ICD-10; Not Available [facility] 4 05:38:03 Intertri go 81027901 Active 2023 Martha Lopez RN null, [facility]. 4 09:39:19 Thromboc ytosis 9253487 Active 2023 LORNA MARTINEZ APRN [address], [place], [address] , [facility]. 4 21:17:57 Impacted cerumen 38337056 Active 2023 LORNA MARTINEZ APRN [address], [place], [address] , [facility] 4 10:33:20 Notes:*Problem Name: Oliguri a and anuria *Problem Status: active *Comments: *Problem Code: R34 *Problem Code Type: ICD-10 *Note Date: 03/04/2018 Problem Notes None recorded. Procedures Surgical History Date Name Laterality Status Provider Name and Address Organization Details Recorded Time 11/10/19 18 hysteroscopic endometrial laser ablation completed MIKEY VALLADARES, [facility] 12/25/2023 10:53:02 Imaging Results None recorded. Procedure Notes None recorded. Medical Equipment None Reported. Allergies Allergen ID Allergen Name Allergen Category Reaction Reaction Severity Criticality Documentation Date Start Date Code Code System Note Provider Name and Address Organization Details Recorded Time fluoxetin e hydrochlo ride medicatio n other mild Not available 03/06/20232018 82515 4 RxNorm unsur e Aller gyRea ction : 'unsu re'; Not Available [facility] 3 16:14:36 11522 doxycycli ne Not available rash severe Not available 03/06/20232022 3640 RxNorm Aller gyRea ction : 'Rash , Gastr ointe avelino l,'; Not Available [facility] 3 16:14:36 Medications Name Sig Start Date Stop Date Status Note LastModified by Organization Details LastModified Time acetamino phen 325 mg tablet Take 3 tablet by mouth every eight hours as needed active Per [facility] d/c summary 02/25/23 Not Available Not [...] eight hours as needed 07/23 completed Per [facility] d/c summary 02/25/23 Not Available Not [...] daily to affected area 07/23 completed Per [facility] d/c summary 02/25/23 Not Available Not [...] three times a day 09/[address] [facility] Infectio us note stated Bactrim DS 800-160m g 1 BID Not Available Not Available Not Available sodium chloride 0.9 % (flush) injection syringe Infuse 10ml into venous catheter 2 times a day 07/23 completed Per [facility] d/c summary 02/25/23 Not Available Not Available Not Available ceftriaxo ne 2 gram/50 mL in dextrose (iso-osm) intraveno us piggyback Infuse 2 gram intraven ously once a day Infuse 50ml (2g total) into a venous catheter daily 07/23 completed Per [facility] d/c summary 02/25/23 Not Available Not [...] 12 patch free hours) 07/23 completed Per [facility] d/c summary 02/25/23 Not Available Not [...] Updated DateTime 4 157.48 cm 22.6 kg/m2 54696.9 6 g 97.9 [degF] 97 % 97 % 110 /min 98 mm[Hg] 64 mm[Hg] YOGESH BENDER CMA [place] [facility] 10:12:40 Social History None recorded. Functional Status [...] Recorded Time MMR 09/16/1994 completed Not Available [facility] 03:50:44 MMR 03/20/1998 completed Not Available [facility] 03:50:45 DTaP, unspecified formulation 05/15/1994 completed Not Available [facility] 03/06/2023 03:50:45 DTaP, unspecified formulation 1993 completed Not Available [facility] 03/06/2023 03:50:45 DTaP, unspecified formulation 1993 completed Not Available [facility] 03/06/2023 03:50:45 DTaP, unspecified formulation 03/07/1994 completed Not Available [facility] 03/06/2023 03:50:45 DTaP, unspecified formulation 03/20/1998 completed Not Available [facility] 03/06/2023 03:50:45 meningococcal ACWY, unspecified formulation 09/15/2011 completed Not Available [facility] 03/06/2023 03:50:46 Td (adult), 5 Lf tetanus toxoid, preservative free, adsorbed 10/20/2016 completed Not Available [facility] 03/06/2023 03:50:46 Tdap 10/22/2018 completed Not Available [facility] 03:50:46 Tdap 11/24/2006 completed Not Available [facility] 03:50:46 Influenza, split virus, quadrivalent, PF 01/15/2021 completed Not Available [facility] 03/06/2023 03:50:47 Influenza, split virus, quadrivalent, PF 02/17/2022 completed Not Available [facility] 03/06/2023 03:50:47 Influenza, split virus, quadrivalent, PF 02/28/2019 completed Not Available [facility] 03/06/2023 03:50:48 Influenza, split virus, quadrivalent, PF 04/02/2020 completed Not Available [facility] 03/06/2023 03:50:48 Influenza, split virus, quadrivalent, preservative 03/02/2017 completed Not Available [facility] 03/06/2023 03:50:48 Influenza, split virus, quadrivalent, preservative 03/04/2018 completed Not Available [facility] 03/06/2023 03:50:48 Hib, unspecified formulation 1993 completed Not Available [facility] 03/06/2023 03:50:48 Hib, unspecified formulation 09/16/1994 completed Not Available [facility] 03/06/2023 03:50:49 Hib, unspecified formulation 1993 completed Not Available [facility] 03/06/2023 03:50:49 Hib, unspecified formulation 03/07/1994 completed Not Available [facility] 03/06/2023 03:50:49 COVID-19, mRNA, LNP-S, PF, 100 mcg/0.5mL dose or 50 mcg/0.25mL dose 08/21/2020 completed Not Available [facility] 03/06/20 03:50:49 COVID-19, mRNA, LNP-S, PF, 100 mcg/0.5mL dose or 50 mcg/0.25mL dose 09/18/2020 completed Not Available [facility] 03/06/20 03:50:49 COVID-19, mRNA, LNP-S, PF, 100 mcg/0.5mL dose or 50 mcg/0.25mL dose 04/10/2021 completed Not Available [facility] 03/06/20 03:50:50 varicella 11/24/2006 completed Not Available [facility] 03:50:50 varicella 01/21/1999 completed Not Available [facility] 03:50:50 SARS-COV-2 (COVID-19) vaccine, UNSPECIFIED 09/25/2021 completed Not Available [facility] 03/06/2023 03:50:50 Hep B, unspecified formulation 1993 completed Not Available [facility] 03/06/2023 03:50:51 Hep B, unspecified formulation 1993 completed Not Available [facility] 03/06/2023 03:50:51 Hep B, unspecified formulation 03/07/1994 completed Not Available [facility] 03/06/2023 03:50:52 Hep A, unspecified formulation 06/22/2000 completed Not Available [facility] 03/06/2023 03:50:52 Hep A, unspecified formulation 11/07/1997 completed Not Available [facility] 03/06/2023 03:50:52 influenza, unspecified formulation 01/18/2016 completed Not Available [facility] 03/06/2023 03:50:52 polio, unspecified formulation 05/15/1994 completed Not Available [facility] 03/06/2023 03:50:52 polio, unspecified formulation 1993 completed Not Available [facility] 03/06/2023 03:50:52 polio, unspecified formulation 09/15/1994 completed Not Available [facility] 03/06/2023 03:50:53 polio, unspecified formulation 03/07/1994 completed Not Available [facility] 03/06/2023 03:50:53 Influenza, split virus, quadrivalent, PF 01/23/2023 completed Not Available [facility] 05/08/2023 05:31:40 Past Encounters Encounter ID Performer Location Encounter Start Date Encounter Closed Date Diagnosis/Indication Diagnosis SNOMED-CT Code Diagnosis ICD10 Code [id number] LORNA MARTINEZ POUCH MAKER [address] [address] 11/10/2023 09:56:28 11/10/2023 12:18:07 Tetraplegia 29234017 G82.50 Osteomyelitis 08341042 M 86.9 High enzym e level in serum 311229814 R74.9 Vitamin D deficiency 347 37578 E55.9 Impacted cerumen 0221391 6 H61.23 Health Concerns Section Related Observation LastModified by Organization Detai ls LastModified Time None Recorded Concern Status LastModified by Organization Details LastModified Time None Recorded Payers Encounter Date Sequence Insurance Name Policy Number Policy Green Covered Member ID Green Member ID Guarantor Name 11/10/2023 1 [facility] (MEDICAID) Tana Cavazos [id number] Tana Cavazos Notes Date Note Type Note [...] -- Has been working with surgeon at [facility] and ID at [facility]. -- Has elevated inflammatory markers that are gradually rising, specifically CRP and ESR -- Normal CK -- LFTs are elevated; initially alk phos was primarily elevated, but over the last few months her AST and ALT have been increasing. She had abdominal US done at [facility] 03/28/23 and this was normal. ID felt [...] has full guardianship of Kalyan. LORNA MARTINEZ, POUCH MAKER [address], [place], [address], [facility]. 11/10/2023 12:42:59 OBGyn Episode No OBEpisode recorded.
--- OUTSIDE RECORDS SUMMARY | 2023-12-29 14:02 | XMS_ITS | Encounter Summary ---
Author Organization [facility] Address [facility] [place] [address] Care Team Providers Care Care Coordinator Name Role Phone Lorna Bal APRN Primary Care Provider [phone] Reason for Visit * Reason Onset Date Comments Other 12/15/2023 Encounter Details Date Type Department Care Team (Late st Contact Info) Description 12/15/2023 Telephone [place] [address] Hollie Ambriz MD [facility] [place] [address] Other Social History Tobacco Use Types Packs/Day Years Used Date Smoking Tobacco: Never Passive Smoke Exposure: Never Smokeless Tobacco: Never Comments:NO SMOKERS IN THE H OME Alcohol Use Standard Drinks/Week Comments No 0 (1 standard drink = 0.6 oz pur e alcohol) [facility] Utilities Answer Date Recorded In the past 12 months has [employer], gas, oil, or water company threatened to [...] encounter Miscellaneous Notes * Telephone Encounter - Carmen Jones - 12/15/2023 11:08 AM EDT Clinic Coverage - Reason for Call: Other PCP: Lorna Bal APRN / Treating provider: Hollie Ambriz Message: Staci wants to clarify the frequency at which labs be drawn as they are trying to have follow up labs and patient was told every week needs to clarify if this is accurate. Please call back. Caller Name (If other than patient): Staci Relationship to Patient (if other than self):other [facility] Callback number: [phone] Best time you are available: Any Route Per Clinic Coverage Page documented in this encounter Plan of Treatment Upcoming Encounters Date Type Department Care Team (Late st Contact Info) Description 06/02/2024 12:30 PM EST Office Visit [place] [address] Hollie Ambriz MD [facility] [place] [address] documented as of this encounter Visit Diagnoses Not on filedocumented in this encounter Care Teams Care Coordinator Relationship Specialty Start Date End Date Lorna Bal, [place] [address] [place] [address] PCP - General Family Medicine 05/27/18 documented as of this encounter
--- OUTSIDE RECORDS SUMMARY | 2023-12-29 14:02 | XMS_ITS | Encounter Summary ---
Author Organization [facility] Address [facility] [place] [address] Care Team Providers Care College President Name Role Phone Lorna Bal APRN Primary Care Provider [phone] Encounter Details Date Type Department Care Team (Late st Contact Info) Description 11/09/2023 Telephone [place] [id number] Yas Tracy, RN Social History Tobacco Use Types Packs/Day Years Used Date Smoking Tobacco: Never Passive Smoke Exposure: Never Smokeless Tobacco: Never Comments:NO SMOKERS IN THE H OME Alcohol Use Standard Drinks/Week Comments No 0 (1 standard drink = 0.6 oz pur e alcohol) [facility] Utilities Answer Date Recorded In the past 12 months has e electric, gas, oil, or water [employer] threatened to shut off services in [...] any time in the past 12 m [facility], were you homeless or living [...] encounter Miscellaneous Notes * Telephone Encounter - aYs Tracy RN - 11/09/2023 4:17 PM EDT [facility] nurse reporting pt PICC has migrated 2CM out. Report OK as long as it isn't more than 3 CM. documented in this encounter Plan of Treatment Upcoming Encounters Date Type Department Care Team (Late st Contact Info) Description 06/02/2024 12:30 PM EST Office Visit [place] [phone] Hollie Ambriz MD [facility] [place] [address] documented as of this encounter Visit Diagnoses Not on filedocumented in this encounter Care Teams College President Relationship Specialty Start Date End Date Lorna Bal APRN [address] [place] [address] PCP - General Family Medicine 05/27/18 documented as of this encounter
--- OUTSIDE RECORDS SUMMARY | 2023-12-29 14:02 | XMS_ITS | Encounter Summary ---
Author Organization [facility] Address [facility] [place] [address] Care Team Providers Care Resident Care Supervisor Name Role Phone Lorna Bal APRN Primary Care Provider [phone] Encounter Details Date Type Department Care Team (Late st Contact Info) Description 12/14/2023 Notes Only [place] [id number] Mesha Mckeon, RN Social History Tobacco Use Types Packs/Day Years Used Date Smoking Tobacco: Never Passive Smoke Exposure: Never Smokeless Tobacco: Never Comments:NO SMOKERS IN THE H OME Alcohol Use Standard Drinks/Week Comments No 0 (1 standard drink = 0.6 oz pur e alcohol) [facility] Utilities Answer Date Recorded In the past 12 months has e electric, gas, oil, or water [employer] threatened to shut off services in your [...] Progress Notes * Mesha Mckeon, RN - 12/14/2023 10:49 AM EDT Infectious Disease/[facility] Program PICC Removal External Location PICC line was removed on 12/11/23 PICC line was removed by [facility] documented in this encounter Plan of Treatment Upcoming Encounters Date Type Department Care Team (Late st Contact Info) Description 06/02/2024 12:30 PM EST Office Visit Infectious Disease at [facility] [place] [phone] Hollie Ambriz MD [facility] [place] [address] documented as of this encounter Visit Diagnoses Not on filedocumented in this encounter Care Teams Resident Care Supervisor Relationship Specialty Start Date End Date Lorna Bal APRN [address] [place] [address] PCP - General Family Medicine 05/27/18 documented as of this encounter
--- OUTSIDE RECORDS SUMMARY | 2023-12-29 14:02 | XMS_ITS | Clinical Summary ---
Author Organization [facility] [place] [address] Care Team Providers Care Ice Cream Mixer Name Role Phone Lorna Bal APRN Primary Care Provider [phone] Allergies Active Allergy Reactions Criticality Noted Date Comments Cyclobenzaprine 01/28/2023 Other Reaction(s): Not available Doxycycline Other (See Comments) 08/05/2023 Cough, rash Fluoxetine Other (See Comments) High 02/28/2014 HIVES, HEART RACES Penicillins 06/24/2022 Transparent Dressings Itching,Dermatitis Medium 2014 Please use [id number] Medications Medication Sig Dispensed Refills Start Date End Date Status senna (Senokot) 8.6 mg tablet Take 2 tablets by mouth nightly. Active polyethylene glycoL (Miralax) 17 gram oral powder packet Take 17 g by mouth daily. 07/09/2022 Active bisacodyL (Dulcolax) [address] 10 mg rectally daily as needed (Constipation). Active sodium chloride 0.9 %, flush, (BD [...] Encounters Date Type Department Care Team Description 12/21/2023 11:08 AM EDT - 12/21/2023 11:59 PM EDT Hospital Encounter Radiology at [place] [phone] Mich Martino MD Abscess Discharge Disposition: Home 12/21/2023 Travel 12/15/2023 Notes Only Infectious Disease at [place] [phone] Yas Tracy RN 12/15/2023 Telephone Infectious Disease at [place] [phone] Hollie Ambriz MD Other 12/14/2023 Notes Only Infectious Disease at [place] [phone] Mesha Mckeon RN 12/03/2023 1:45 PM EDT Laboratory Appointment Lab [address] [place] [address] 12/03/2023 1:20 PM EDT - 12/03/2023 11:59 PM EDT Hospital [place] [address] Andrade Melvin MD Abscess Discharge Disposition: Home 12/03/2023 12:30 PM EDT Office Visit Infectious Disease at [place] [phone] Hollie Ambriz MD 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 Dx); [facility] 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 12/03/2023 Notes Only Infectious Disease at [place] [phone] Mesha Mckeon RN 12/03/2023 Orders [place] [address] Hollie Ambriz MD Spinal abscess; Bacteremia; [facility] 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 12/03/2023 Travel 12/02/2023 Orders [place] [address] Hollie Ambriz MD Spinal abscess; Bacteremia 11/25/2023 2:00 PM EDT TH Visit (TeleHealth) Infectious Disease at [place] [phone] Lilli Joy APRN Osteomyelitis, unspecified site, unspecified type; Hardware complicating wound infection, subsequent encounter; [facility] 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 11/09/2023 Telephone Infectious Disease at [place] [phone] Yas Tracy, RN 10/28/2023 8:05 PM EDT - 11/03/2023 5:25 PM EDT Hospital Encounter Medical Specialites Unit Level 1 Wing C at [place] [phone] Siomara Hernandez MD Moeller, John, MD Etiwy, Muhammad, MD Ivan, Adrian M, MD Lurie, Jonathan D, MD Abscess; Spinal abscess Discharge Disposition: Home with [facility] 10/28/2023 Travel 10/28/2023 Telephone Infectious Disease at [place] [phone] Neva Thorpe RN 10/28/2023 Telephone [place] [phone] Neva Thorpe RN 10/28/2023 Telephone [place] [address] eNva Thorpe RN 10/28/2023 Telephone [place] [address] Neva Thorpe RN 10/27/2023 Telephone [place] [address] Hollie Ambriz MD 10/27/2023 Telephone [place] [address] Halima García 09/29/2023 10:30 AM EDT Office [place] [address] Chuckie Mayfield MD Chronic pain of right thumb; 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 09/29/2023 10:00 AM EDT Office [place] [address] Gaby Lake OT 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; Spasticity 09/29/2023 Travel 09/28/2023 Orders [place] [address] Hollie Ambriz MD [facility] 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; Spinal abscess; Acute hematogenous osteomyelitis, unspecified site from Last 3 Months Immunizations Name Administration Dates Next Due Influenza (Novel [id number]) Injectable 02/25/2009 Influenza Trivalent w/Preservative 04/25/2011 Influenza [...] Sign Reading Time Taken Comments Blood Pressure 101/59 12/21/2023 12:15 PM EDT Pulse 83 12/21/2023 12:13 PM EDT Temperature 35.7 ??C (96.3 ??F) 12/21/2023 11:35 AM E DT Respiratory Rate 17 12/21/2023 12:15 PM EDT Oxygen Saturation 98% 12/21/2023 12:15 PM EDT Inhaled Oxygen Concentration - - Weight 56.7 kg (125 lb) 10/29/2023 1:01 PM EDT Height 157.5 cm (5' 2) 10/29/2023 1:01 PM EDT Body Mass Index 22.86 10/29/2023 1:01 PM EDT Plan of Treatment Upcoming Encounters Date Type Department Care Team (Late st Contact Info) Description 06/02/2024 12:30 PM EST Office Visit [place] [address] Hollie Ambriz MD [facility] [place] [address] Health Maintenance Due Date Last Done Comments HIV screen 2011 Hepatitis C Screening 2011 Hepatitis B vaccine (0-59 yrs) (1) 2012 Tdap adult 2012 Tetanus vaccine 2012 HPV test 2023 PAP Smear 2023 Covid-19 Vaccine ( - 2022-2 4 season) 2023 Influenza (Flu) vaccine (1 o f 1 - Influenza standard series) 12/27/2023 04/25/2011, 03/27/2009, 02/25/2009 Procedures Procedure Name Priority Date/Time Associated Diagnosis Comments IR DRAIN CHECK/CHANGE/REMOVE Routine 12/21/2023 12:40 PM EDT Abscess LAB SCAN 12/09/2023 12:00 AM EDT LAB SCAN 12/04/2023 12:00 AM EDT LAB SCAN 12/04/2023 12:00 AM EDT IR DRAIN CHECK/CHANGE/REMOVE Routine 12/03/2023 3:21 PM [...] EDT LAB SCAN 10/28/2023 12:00 AM EDT from Last 3 Months Results * IR Drain Check/Change/Remove (12/21/2023 12:40 PM EDT) Only the most recent of2 resultswithin the time period is included. Anatomical Region Laterality Modality Head X-Ray Angiograph y Impressions 12/21/2023 12:40 PM EDT : No residual abscess cavity, drain removed Recommend: return for increased pain, fever, drainage through wound. Attending: I, Dr. Self, was present for the procedure. Narrative 12/21/2023 12:40 PM EDT IR PROCEDURE REPORT : ??Drain check and removal INDICATION: abscess, decreased output from existing drain. PMH of paraspinal drain (10/30/23 - Cx w/ NGTD) in the setting of lumbar subcutaneous abscesses who presents to Interventional Radiology to undergo routine drain check. ?? TBI with spastic quadriplegia, CP, nonverbal, scoliosis, with history of complicated surgical fixation hardware requiring prior percutaneous drain placement for perihardware soft tissue collection, with recent admission for fever, redness, warmth, and swelling spot on her back, found to have increased size of known focal collection at the lower mid posterior to the presacral region, compatible with fluid collection adjacent to sacral hardware and bone, now s/p 10Fr paraspinal drain on 10/29. TECHNIQUE: Spot image obtained. ??Contrast injected, spot image obtained. Catheter was cut and drain removed. ?? Patient tolerated the procedure well and there were no immediate complications. Contrast : 10 cc Omni. ??(40 cc discarded) ?? EBL: 0cc FINDINGS: ??contrast outlines pigtail, tracks back along catheter. Catheter removed. ?? Mich Martino MD IMG IR ORDERABLES * Scan Doc: Lab (12/09/2023 12:00 AM EDT) Only the most recent of12 resultswithin the time period is included. Narrative 12/09/2023 12:00 AM EDT Ordered by an unspecified provider. Scanning Provider MEDIA MGR SCAN EXT O RDR/RSLT * Place PICC Line: Contact Vascular Access Page [phone] Extremity to exclude: No restrictions; Is PICC [...] to the planned procedure. Hand Hygiene: The ancillary specialist did perform hand hygiene prior to line insertion. Catheter type: PICC Lot number: [id number] Procedure Technique: Skin was prepped with chlorhexidine. [...] Guidance (IV Team) (11/03/2023 11:19 AM EDT) [employer] WORKSTATION ID [id number] RAD Anatomical Region Laterality Modality N/A Radio [...] who have questions please contact the health emergency care tech that requested your imaging first. ? Narrative [...] patients who have questions please contactthe health emergency care tech that requested your imaging first. Isaiah Samayoa [...] of5 resultswithin the time period is included. C-Reactive Protein 62.8(H) <=4.9 mg/L [facility] Blood 11/02/2023 5:26 AM EDT 11/02/2023 5:44 AM EDT Narrative Resulting Agency Comment Spec In Lab Isaiah Samayoa MD CHEMISTRY ORDERABLES [facility] [place] [address] * (ABNORMAL) Hemogram (11/02/2023 5:26 AM EDT) Only the most recent of5 resultswithin the time period is included. White Blood Cell 7.5 4.0 - 9.5 x10(3)/mc L [facility] Red Blood Cell 3.89(L) 4.00 - 5.21 x10(6)/mc L [facility] Hemoglobin 11.1(L) 11.7 - 15.5 g/dL [facility] Hematocrit 33.8(L) 35.7 - 45.8 % [facility] Mean Cell Volume 86.9 82.6 - 94.4 fL [facility] Mean Cell Hemoglobin 28.5 27.1 - 32.0 pg [facility] Mean Cell Hemoglobin Concentration 32.8 31.7 - 35.0 g/dL [facility] Platelet 477(H) 145 - 357 x10(3)/mc L [facility] RDW Standard Deviation 45.1 37.0 - 46.0 [facility] RDW coefficient of variation 14.3(H) 11.5 - 14.1 % [facility] Mean Platelet Volume 9.1 7.6 - 12.9 [facility] NRBC% auto 0.0 % [facility] NRBC Absolute 0.000 0.000 - 0.000 x10(3)/[facility] Blood 11/02/2023 5:26 AM EDT 11/02/2023 5:43 AM EDT Narrative Resulting Agency Comment Spec In Lab Isaiah Samayoa MD [place] [address] * Differential, Automated (11/02/2023 5:26 AM EDT) Only the most recent of5 resultswithin the time period is included. Neutrophil % 69.0 % [facility] Neutrophil Absolute 5.16 1.70 - 6.10 x10(3)/[facility] Lymph % 21.7 % [facility] Lymphocytes Abs 1.6 0.9 - 3.2 x10(3)/[facility] LAB[facility]ORY Monocyte % 6.8 % [facility] Monocyte Abs 0.5 0.3 - 0.9 x10(3)/[facility] LAB[facility]ORY Eos % 1.6 % [facility] Eosinophils Abs 0.1 0.0 - 0.4 x10(3)/[facility] LAB[facility]ORY Basophil % 0.5 % [facility] Baso Absolute 0.0 0.0 - 0.1 x10(3)/[facility] Immature Gran % 0.40 % [facility] Comment: Immature granulocytes(IG's)percentage and absolute count will include metamyelocytes, myelocytes, and promyelocytes. Blood smears from CBCs yielding IG's will be scanned manually for concordance. If this scan disagrees with the automated IG or if promyelocytes are noted, a manual differential will be performed. Immature Gran Absolute 0.03 0.00 - 0.04 x10(3)/[facility] Blood 11/02/2023 5:26 AM EDT 11/02/2023 5:43 AM EDT Narrative Resulting Agency Comment Spec In Lab Isaiah Samayoa MD [place] [address] * CK (11/02/2023 5:26 AM EDT) Only the most recent of2 resultswithin the time period is included. Creatine Kinase 14 0 - 160 unit/L [facility] Blood 11/02/2023 5:26 AM EDT 11/02/2023 5:44 AM EDT Narrative Resulting Agency Comment Spec In Lab Isaiah Samayoa MD CHEMISTRY ORDERABLES [facility] [place] [address] * (ABNORMAL) Comprehensive metabolic panel (non-fasting) (11/02/2023 5:26 AM EDT) Glucose 109 65 - 199 mg/dL [facility] Comment:Diabetes: >=200 mg/d L plus symptoms Blood Urea Nitrogen 13 8 - 18 mg/dL [facility] Comment:result rechecked-mg Creatinine 0.27(L) 0.70 - 1.20 mg/dL [facility] [...] - 107 mmol/L [facility] Carbon Dioxide 21(L) 22 - 31 mmol/L [facility] Anion Gap 13 5 - 15 mmol/L [facility] Calcium 9.8 8.5 - 10.5 mg/dL [facility] Protein, Total 7.2 6.1 - 8.0 g/dL [facility] Albumin 3.5 3.2 - 5.2 g/dL [facility] Aspartate Aminotransferase 13 0 - 30 unit/L [facility] Alanine Aminotransferase 27 0 - 30 unit/L [facility] Alkaline Phosphatase 209(H) 35 - 105 unit/L [facility] Bilirubin, Total <0.2(L) 0.2 - 1.3 mg/dL [facility] Est Glomerular Filtration Rate 150 >=60 mL/min/1. 73 m?? [facility] [...] In Lab Isaiah Samayoa MD CHEMISTRY ORDERABLES [facility] [place] [address] * XR Abdomen 1 view (Generic) (11/01/2023 10:14 PM EDT) [employer] WORKSTATION ID [id number] RAD Anatomical Region Laterality Modality Abdomen N/A [...] who have questions please contact the health emergency care tech that requested your imaging first. ? Narrative [...] patients who have questions please contactthe health emergency care tech that requested your imaging first. Mnidy Da Silva APRN IMG DX ORDERABLES * MRSA PCR Screen ([facility]/CGP/APD/[facility]H) (10/31/2023 6:10 PM EDT) [facility] MRSA PCR Negative Negative [facility] MRSA (Interp) Methicillin-resist ant Staphylococcus aureus (MRSA) is NOT DETECTED The MRSA target DNA sequences (mec and SCC) were not detected within the acceptable ranges using the Xpert MRSA NxG on the GeneXpert Dx System (EventWith). This suggests the absence of MRSA in the patient specimen submitted for testing. This test is cleared by the U.S. Food and Drug Administration for clinical use and its performance characteristics have been verified by the [facility] at [facility]. This result does not rule out the presence of any other organisms. Rare false negative results may occur if MRSA is present at low concentrations with much higher concentrations of other organisms including MRSE or S. aureus with an empty SCC cassette. [facility] Comment: [VERIFIED DATE]11.01.23 Verified By:Marisela Jolly (Electronic Signature) Nasopharyngeal Swab 10/31/19 6:10 PM EDT 11/01/2023 8:24 AM EDT Comment:Specimen Type->Nasop haryngeal Swab Narrative Resulting Agency Comment Spec In Lab Isaiah Samayoa MD MOLECULAR ORDERABLES [facility] [place] [address] * (ABNORMAL) Sedimentation rate (10/31/2023 4:47 AM EDT) Only the most recent of4 resultswithin the time period is included. [facility] Sedimentation Rate Automated 113(H) 2 - 37 mm/hr [facility] [...] MD HEMATOLOGY ORDERABLE S Performing Organization Address [facility] Co de Phone Number [facility] [place] [address] * Magnesium (10/31/2023 4:47 AM EDT) Only the most recent of4 resultswithin the time period is included. Magnesium 0.86 0.69 - 1.07 mmol/L [facility] Blood 10/31/2023 4:47 AM EDT 10/31/2023 4:55 AM EDT Narrative Resulting Agency Comment Spec In Lab Sharron Winters MD CHEMISTRY ORDERABLES Performing Organization Address [facility] Co de Phone Number [facility] [place] [address] * (ABNORMAL) Basic Metabolic Panel (non-fasting) (10/31/2023 4:47 AM EDT) Only the most recent of4 resultswithin the time period is included. Glucose 120 65 - 199 mg/dL [facility] Comment:Diabetes: >=200 mg/d L plus symptoms Blood Urea Nitrogen 8 8 - 18 mg/dL [facility] [...] questions. Chloride 106 98 - 107 mmol/L [facility] Carbon Dioxide 23 22 - 31 mmol/L [facility] Anion Gap 11 5 - 15 mmol/L [facility] Calcium 9.2 8.5 - 10.5 mg/dL [facility] Est Glomerular Filtration Rate 150 >=60 mL/min/1. 73 m?? [facility] [...] Winters MD CHEMISTRY ORDERABLES Performing Organization Address City/State/[facility] Co de Phone Number [facility] [place] [address] * IR All Drainage Procedures (10/30/2023 3:23 [...] EDT) Anaerobic Culture No anaerobic organisms isolated [facility] Fluid 10/30/2023 3:02 PM EDT 10/30/2023 3:47 PM EDT Comment:Infected seroma/absc ess lower mid posterior presacral region. Fluid culture. Narrative Resulting Agency Comment Spec In Lab Andrade Melvin MD MICROBIOLOGY - GENER AL ORDERABLES Performing Organization Address City/[facility]/ZIP Co de Phone Number [facility] [place] [address] * Body Fluid Culture, Aerobic (10/30/2023 3:02 PM EDT) Body Fluid Culture Rare mixed bacterial morphotypes suggestive of normal cutaneous zenon [facility] Gram Stain Many Neutrophils seen No microorganisms seen. [facility] Fluid 10/30/2023 3:02 PM EDT 10/30/2023 3:47 PM EDT Comment:Infected seroma/absc ess lower mid posterior presacral region. Fluid culture. Narrative Resulting Agency Comment Spec In Lab Andrade Melvin MD MICROBIOLOGY - GENER AL ORDERABLES Performing Organization Address [facility]/ZIP Co de Phone Number [facility] [place] [address] * POCT urine (10/29/2023 10:26 AM EDT) Pathologist [facility] POC Urine HCG Negative POC Control Internal Controls Acceptable 10/29/2023 10:2 6 AM EDT Sharron Winters MD POINT OF CARE TEST O RDERABLES * Lactate, whole blood, send to lab ([facility]) (10/29/2023 8:37 AM EDT) Lactate WB 1.8 0.5 - 2.2 mmol/L [facility] Blood 10/29/2023 8:37 AM EDT 10/29/2023 8:47 AM EDT Narrative Resulting Agency Comment Spec In Lab Brennan Malodnado MD CHEMISTRY ORDERABLE S [facility] [place] [address] * Phosphorus (10/29/2023 8:37 AM EDT) Only the most recent of2 resultswithin the time period is included. Phosphorus 3.6 2.5 - 4.5 mg/dL [facility] Blood 10/29/2023 8:37 AM EDT 10/29/2023 8:47 AM EDT Narrative Resulting Agency Comment Spec In Lab Brennan Maldonado MD CHEMISTRY ORDERABLE S Performing Organization Address [facility] Co de Phone Number [facility] [place] [address] * (ABNORMAL) Urinalysis Microscopic Exam (10/29/2023 2:33 AM EDT) RBC, Urine >100(H) 0 - 4 /HPF [facility] WBC, Urine 4 0 - 5 /HPF [facility] Squamous Epithelial Cells Raw Data, Urine 4 <=4 /HPF [facility] Hyaline Casts, Urine <1 0 - 2 /LPF [facility] Comment: Interpret results with caution, microscopic results are from suboptimal specimen volume Straight Catheter Urine 10/29/2023 2:33 AM EDT 10/29/2023 2:43 AM EDT Narrative Resulting Agency Comment Spec In Lab Sharron Winters MD URINE ORDERABLES Performing Organization Address [facility]/ZIP Co de Phone Number [facility] [place] [address] * (ABNORMAL) Urinalysis with reflex Culture (10/29/2023 2:33 AM EDT) Glucose, Urine Dipstick Negative Negative mg/dL [facility] Protein, Urine Dipstick 30(A) Negative mg/dL [facility] Bilirubin, Urine Dipstick Negative Negative mg/dL [facility] Comment: Clinical correlation required for positive Urine Bilirubin results as false positive may occur with some drugs and drug related products. If a false positive is suspected a serum total bilirubin should be considered if clinically indicated. Urobilinogen, Urine Dipstick Normal Normal mg/dL [facility] pH, Urn (dipstick) 6.5 5.0 - 8.0 [facility] Blood, Urine Dipstick Large(A) Negative mg/dL [facility] Ketone, Urine Dipstick Negative Negative mg/dL [facility] Nitrite, Urine Dipstick Negative Negative [facility] Leukocytes, Urine Dipstick Negative Negative [facility] Appearance, Urine Dipstick Clear Clear [facility] Specific Two Dot Urine Automated >=1.030(A) 1.005 - 1.030 [facility] Color, Urine Dipstick Yellow Yellow [facility] Reflex to Culture No [facility] Straight Catheter Urine 10/29/2023 2:33 AM EDT 10/29/2023 2:43 AM EDT Narrative Resulting Agency Comment Spec In Lab Sharron Winters MD URINE ORDERABLES Performing Organization Address City/State/[facility] Co de Phone Number [facility] [place] [phone] * CT Lumbar Spine w Contrast (10/28/2023 9:50 PM EDT) WORKSTATION ID [id number] DH RAD Anatomical Region Laterality Modality L-spine [...] who have questions please contact the health emergency care tech that requested your imaging first. ? Narrative [...] patients who have questions please contactthe health emergency care tech that requested your imaging first. Siomara Hernandez MD IMG CT ORDERABLES from Last 3 Months Advance Directives Documents on File Type Date Recorded Patient Analyst Expl anation Personal Analyst 04/29/2023 4:18 PM has new guardian Personal Analyst 04/29/2023 2:04 PM has new guardian Guardianship document 06/15/2018 11:23 AM Guardianship document 10/28/2023 7:54 PM Am dean Brown Effective 09/17/23-missing rights and responsibilities * Attempt Cardiopulmonary Resuscitation - Inpatient (Latest Code Status on File) Date Activated Date Inactivated Comments 12/21/2023 11:35 AM 12/22/2023 4:34 AM Question Answer Comments Code Status decision made by: Patient Content of discussion: Full * Attempt Cardiopulmonary Resuscitation - Inpatient Date Activated Date Inactivated Comments 12/03/2023 2:05 [...] Status decision made by: Patient Care Teams Ice Cream Mixer Relationship Specialty Start Date End Date Lorna Bal APRN [address] [place] [address] PCP - General Family Medicine 05/27/18
--- OUTSIDE RECORDS SUMMARY | 2023-12-29 14:02 | XMS_ITS | Encounter Summary ---
Author Organization [facility] [place] [address] Care Team Providers Care Outdoor Guide Name Role Phone Lorna Bal APRN Primary Care Provider [phone] [phone] Reason for Referral * Diagnostic Test (Routine) - Closed Specialty Diagnoses / Procedures Referred By Contac t Referred To Contact Radiology Diagnoses Abscess Procedures IR Drain Check/Change/Remove Mich Martino MD [facility] [place] [address] [place] [address] Referral ID Status Reason Start Date Expiration Date V isits Requested Visits Authorized [id number] Closed Specialty Service Requested 12/03/2023 06/04/2025 1 1 * Diagnostic Test (Routine) - Closed Specialty Diagnoses / Procedures Referred By Contac t Referred To Contact Radiology Diagnoses Abscess Procedures IR Drain Check/Change/Remove Andrade Melvin MD [facility] [address] [place] [address] [place] [address] Referral ID Status Reason Start Date Expiration Date V isits Requested Visits Authorized [id number] Closed Specialty Service Requested 10/30/2023 05/01/2025 1 1 Reason for Visit * Diagnostic Test (Routine) - Closed Specialty Diagnoses / Procedures Referred By Contac t Referred To Contact Radiology Diagnoses Abscess Procedures IR Drain Check/Change/Remove Andrade Melvin MD [facility] [place] [address] [facility] [place] [address] Referral ID Status Reason Start Date Expiration Date V isits Requested Visits Authorized [id number] Closed Specialty Service Requested 10/30/2023 05/01/2025 1 1 Encounter Details Date Type Department Care Team (Latest Contact Info) Description 12/03/2023 1:20 PM EDT - 12/03/2023 11:59 PM EDT Hospital [place] [address] Andrade Melvin MD [facility] [place] [address] Abscess Discharge Disposition: Home Social History Tobacco Use Types Packs/Day Years Used Date Smoking Tobacco: Never Passive Smoke Exposure: Never Smokeless Tobacco: Never Comments:NO SMOKERS IN THE H OME Alcohol Use Standard Drinks/Week Comments No 0 (1 standard drink = 0.6 oz pur e alcohol) [facility] Utilities Answer Date Recorded In the [...] any time in the past 12 m [facility], were you homeless or living in [...] is during regular office hours, please call [phone]. If it is after regular office hours, or on weekends or holidays, please call [phone] and ask to speak to the Licensing Officer consumer safety inspector for Interventional Radiology. Revised 02/10/19 Drainage Record [...] unit/gram Powder Apply topically 4 times daily. sodium chloride 0.9 %, flush, (BD PosiFlush [...] tablet Take 2 tablets by mouth nightly. cefTRIAXone (Rocephin) 1 gram injection solutionIndications:S diana abscess Inject 2 g into the vein daily for 39 days. Estimated EOT 12/11/2023 78 each 11/02/2023 12/11/2023 documented as of this encounter Progress Notes * Elinor Burton RN - 12/03/2023 3:07 PM EDT [facility] Name: Tana Cavazos Date of : 1995 AGE: 28 y.o. Address: [address] [place] [address] (home) [phone] (work) Mobile: Telephone Information: Referring Provider: Andrade Melvin REASON FOR VISIT: Order Questions Answers Where will study be performed? [facility] Radiology [120] To be scheduled Next [...] [Transparent Dressings] Itching and Dermatitis Please use [id number] Cyclobenzaprine Other Reaction(s): Not available Doxycycline Other [...] Yes Allergies reviewed: Yes Source Note - [place], DEMI Torres - 11/23/2023 12:56 PM EDT Images from the original note were not included. Interventional Radiology Focused Pre-procedure H&P: PCP: Lorna Bal APRN Referring Provider: Andrade Melvin Planned procedure: Paraspinal drain check/exchange/removal Procedure indication: Chronic perihardware fluid collection, first routine drain check IR workflow: Procedure request received through Interventional Radiology eDH order queue. Order Questions Answers Where will study be performed? [facility] Radiology [120] To be scheduled Next [...] - See Instructions). FLUSH PROTOCOL WITH MEDICATIONS ([facility]): Before med infusion: flush with [...] - See Instructions). FLUSH PROTOCOL WITH MEDICATIONS ([facility]): Before med infusion: flush with [...] All Drainage Procedures 10/30/2023 Andrade Melvin MD [facility] INTERVENTIONL RAD [...] FEMORAL HEAD, BILATERAL performed by BARRERA OLIVER formerly [facility] MAIN OR PRO REMOVAL DEEP [...] at [facility] MAIN OR Social History and Habits: [...] Questions Answers Where will study be performed? [facility] Radiology [120] To be scheduled Next [...] All Drainage Procedures 09/26/2022 Jamaal Jenkins DO [facility] INTERVENTIONL RAD IR ALL DRAINAGE PROCEDURES 10/30/2023 IR All Drainage Procedures 10/30/2023 Andrade Melvin MD [facility] INTERVENTIONL RAD [...] FEMORAL HEAD, BILATERAL performed by BARRERA OLIVER formerly [facility] MAIN OR PRO REMOVAL DEEP [...] at [facility] MAIN OR Social History and Habits: [...] PM EST Office [place] [address] Hollie Ambriz MD [facility] [place] [address] documented as of this encounter Procedures Procedure Name Priority Date/Time Associated Diagnosis Comments IR DRAIN CHECK/CHANGE/REMOVE Routine 12/03/2023 3:21 PM EDT Abscess documented in this encounter Results * IR Drain Check/Change/Remove (12/21/2023 12:40 PM EDT) Anatomical Region Laterality Modality Head [...] catheter. Catheter removed. ?? Mich Martino MD IM IR ORDERABLES * IR Drain Check/Change/Remove (12/03/2023 3:21 PM [...] the entire procedure. ?? Andrade Melvin MD IMG IR ORDERABLES documented in this encounter Visit Diagnoses Diagnosis Abscess Cellulitis and abscess of unspecified site Abscess [...] mLs documented in this encounter Care Teams Outdoor Guide Relationship Specialty Start Date End Date Lorna Bal APRN [address] [place] [address] PCP - General Family Medicine 05/27/18 documented as of this encounter
--- OUTSIDE RECORDS SUMMARY | 2023-12-29 14:02 | XMS_ITS | Encounter Summary ---
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; 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 Social History Tobacco Use Types Packs/Day Years Used Date Smoking Tobacco: Never Passive Smoke Exposure: Never Smokeless Tobacco: Never Comments:NO SMOKERS IN THE H OME Alcohol Use Standard Drinks/Week Comments No 0 (1 standard drink = 0.6 oz pur e alcohol) [facility] Utilities Answer Date Recorded In [...] of this encounter Progress Notes * Lilli Joy APRN - 11/25/2023 2:00 PM EDTSummaximus: ID OPAT interim visit ..INFECTIOUS DISEASE CLINIC - OUTPATIENT FOLLOW UP Chief Complaint: Osteomyelitis and Hardware Infection Microorganism(s): Unknown Antimicrobial Therapy: Ceftriaxone 2 gm IV daily History of Present Illness: Tana Cavazos is a 28 y.o. female with PMH of TBI with spastic quadriplegia, cerebral palsy, non-verbal, developmentally delayed, scoliosis s/p posterior spinal fusion in 2008 with residual deformity, and bilateral [place] in 2010, who was admitted 10/28 - 11/03/2023 due to recurrent spinal infection. Per chart, patient has complicated history involving her L-spine documented previously by her ID Attending, Dr. Ambriz: ...admitted to [facility] in May 2022 for redness and tenderness over midline surgical incision. CTscan showed 2 irregular collections within the posterior lumbar region. The superior collection wasaround T12, and the more inferior collection was around L3-L4 with a R sided gluteal component thatsurrounding a dislocated screw She underwent CT-guided drainage of these collections on 06/25, with purulent material found from the inferior collection. Cultures were negative and it was decided to monitor off antibiotics. Her drain was removed on 07/01, and on 07/03, she developed E coli bacteremia. Repeat CT L-spine at that time showed persistent [...] lump over prior drain site, for which shewas readmitted to [facility] on 07/22 to manage this issue. On arrival to [facility], she was afebrile without leukocytosis. Repeat of her L-spine showed that an increase in size of the soft tissue collection about the dislocated R iliac screw was slightly larger, as well as of the dorsal subcutaneous collection along the L L2-L3 lamina. She underwent bedside I&D of the bump on 07/22, w/ GS and Cxs negative to date. She then underwent placement of two IR drains on 07/24, with Cxs again negative. Subsequently, blood Cxs on 07/28 revealed growth of Pseudomonas oryzihabitans, for which decision was made to treat with PO levofloxacin. Subsequently on an outpatient basis, she was transitioned to PO doxycycline on 08/13. Of note, she was evaluated by spine surgery multiple times at [facility] and was not deemed a candidate for operative intervention. Then, she was seen at [facility] for a second surgical opinion. On 08/27/2022, superficialCxs there revealed growth of Staph hemolyticus and capitis. She was initially continued on doxycycline for this but subsequently switched to TMP-SMX in early September 2022 given ?possible allergic reaction. She also did undergo re-insertion of IR drains on 09/26, with Cxs again returning negative. Eventually, she got a third surgical opinion at [facility] in [place] given the need [...] felt to represent liquefied hematoma or abscess. Ms. Cavazos was seen in the ID Clinic in follow-up at and using shared decision making, involving her caregivers, a plan was made to treat for approximately 6 months following her surgery and then close monitoring off of antibiotics. Thus, her Bactrim was stopped 09/24/2023 after an ID clinic evaluation. CRP at that time was 42 mg/L. Unfortunately, patient developed increasing warmth and erythema in her lower back, as well as low grade fevers and her caregiver, Fannie, brought Tana to the ED on 10/28/2023. In the ED, patient was afebrile with normal WBC count, although CRP was elevated to 148.3mg/L. CT L-spine done which showeda focal heterogenous organizing collection along the lower mid posterior to the presacral region, compatible with an infected seroma/Abscess. This also showed a lucency of the underlying sacrum, concerning for associated Osteomyelitis. IR was consulted and placed a drain into the collection 10/30/2023 with aspiration of purulent fluid. Post-procedurally, patient was started on Daptomycin and Ceftriaxone. ID was consulted for antibiotic guidance and management and recommended continuing empiric therapy with Dapto plus CTX while cultures matured. Unfortunately, despite the fact that she had been off ofantibiotics for >1 month, patient's Abscess cultures had no growth of pathogenic organisms. Allen pringle, believed there was no doubt, based on her clinical trajectory, that her spinal collections wereinfected and recommended a 6-weeks course of Ceftriaxone for a culture-negative process, after which she should transition back to long- term suppression with Bactrim. ROS: Patient is nonverbal at baseline. Per her caregivers, they Deny fevers, chills, night sweats, headache, dizziness Deny chest pain, palpitations Deny shortness of breath, cough Deny abdominal pain, nausea/vomiting, constipation/diarrhea Deny hematuria, dysuria Deny rash Medications: Current Outpatient Medications Medication Sig Dispense Refill sulfamethoxazole-trimethoprim DS (Bactrim DS) 800-160 mg tablet Take 1 tablet by mouth 2 times daily for 180 days. 60 tablet 5 baclofen 15 mg Tablet Take 15 mg [...] times daily. cefTRIAXone (Rocephin) 1 gram injection solution Inject [...] tablet Take 2 tablets by mouth nightly. Allergies: Allergies Allergen Reactions Fluoxetine Other (See Comments) HIVES, HEART RACES Tegaderm [Transparent Dressings] Itching and Dermatitis Please use [id number] Cyclobenzaprine Other Reaction(s): Not available Doxycycline Other (See Comments) Cough, rash Penicillins Physical Exam: General: Patient seen via Telehealth in no distress. Appears happy and content AEB smiling HEENT: Normocephalic, atraumatic. No nasal secretions Pulmonary: Non-labored respirations. No audible wheezing Ext: Wheelchair-bound. PICC line MARCO without erythema, edema, tenderness, or discharge Skin: No rash seen Neuro: Alert, moving upper extremities spontaneously Labs: 11/23/2023: WBC = 4.4, Hb = 12.2, Plts = 269 BUN = 16, creatinine = 0.3 ALT = 83, AST = 40 CRP = 22.4 mg/L Lab Results Component Value Date WBC 7.5 11/02/2023 HGB 11.1 (L) 11/02/2023 HCT 33.8 (L) 11/02/2023 MCV 86.9 11/02/2023 PLATELET 477 (H) 11/02/2023 C-Reactive Protein (mg/L) Date Value 11/02/2023 62.8 (H) 10/31/2023 99.2 (H) 10/30/2023 120.3 (H) 10/29/2023 133.4 (H) 10/28/2023 148.3 (H) 09/24/2023 42.3 (H) 04/16/2023 47.2 (H) 03/26/2023 86.3 (H) 08/11/2022 45.8 (H) 07/31/2022 28.8 (H) 07/28/2022 51.5 (H) 07/28/2022 33.1 (H) 07/27/2022 27.0 (H) 07/26/2022 40.5 (H) 07/22/2022 48.9 (H) 07/08/2022 16.8 (H) 07/06/2022 54.2 (H) 07/03/2022 73.7 (H) 07/01/2022 53.1 (H) 06/28/2022 53.8 (H) 06/24/2022 96.9 (H) C-Reactive Protein High Sensitivity (mg/L) Date Value 06/01/2014 15.4 Lab Results Component Value Date NA 138 11/02/2023 K 3.9 11/02/2023 CL 104 11/02/2023 CO2 21 (L) 11/02/2023 BUN 13 11/02/2023 CREATININE 0.27 (L) 11/02/2023 GLUCOSE 109 11/02/2023 GLUCFASTING 95 07/01/2022 CALCIUM 9.8 11/02/2023 ESTGFR 150 11/02/2023 Lab Results Component Value Date ALT 27 11/02/2023 AST 13 11/02/2023 ALKPHOS 209 (H) 11/02/2023 BILITOT <0.2 (L) 11/02/2023 BILIDIR <0.1 04/16/2023 ALBUMIN 3.5 11/02/2023 PROT 7.2 11/02/2023 Microbiology: Reviewed 10/30 MRSA swab - negative 10/29 Body fluid Cx - rare mixed skin zenon 02/11/23 OSH OR Cx - NG 08/27/22 [...] - NG 06/25/22 BCx x2 - NG Imaging: Reviewed Assessment: From an ID perspective, the patient is doing well AEB no s/s infection (F/C, night sweats, headaches, dizziness, poor appetite, malaise, etc) and no leukocytosis. CRP = 22.4 mg/L this week, slightly increased from 18.7 mg/L last week and that is of undetermined significance. In addition, patient is tolerating long-term IV antimicrobial therapy well AEB no SEs and stable lab work. Patient does not yet have an EOT appointment and we will arrange that. Plan: Continue Ceftriaxone 2 gm IV daily Continue weekly lab work: CBC w/diff, CMP, and CRP EOT visit needs to be scheduled - ID legal secretary receptionist notified Patient's ID Attending, Dr. Ambriz, aware of above I spent a total of 30 minutes with the patient, including my review of medical records prior to thevisit, [id number] evaluation and counseling, clinical decision making, coordination of care and documentation. 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
--- OUTSIDE RECORDS SUMMARY | 2023-12-29 14:02 | XMS_ITS | Encounter Summary ---
Author Organization [facility] Address [facility] [place] [address] Care Team Providers Care Varnish Finisher Name Role Phone Lorna Bal APRN Primary Care Provider [phone] [phone] Encounter Details Date Type Department Care Team (Late st Contact Info) Description 12/03/2023 Notes [place] [id number] Mesha Mckeon, RN Social History Tobacco Use Types Packs/Day Years Used Date Smoking Tobacco: Never Passive Smoke Exposure: Never Smokeless Tobacco: Never Comments:NO SMOKERS IN THE H OME Alcohol Use Standard Drinks/Week Comments No 0 (1 standard drink = 0.6 oz pur e alcohol) [facility] Utilities Answer Date Recorded In the past 12 months has e electric, gas, oil, or water [employer] threatened to shut off services in your [...] in the past 12 m [facility], were you homeless or living in [...] PICC Order Faxed d/c PICC order to [facility] on 12/02 at 1645 Confirmed fax on 12/02 at 1650 documented in this encounter Plan of Treatment Upcoming Encounters Date Type Department Care Team (Late st Contact Info) Description 06/02/2024 12:30 PM EST Office [place] [phone] Hollie Ambriz MD [facility] [place] [address] documented as of this encounter Visit Diagnoses Not on filedocumented in this encounter Care Teams Varnish Finisher Relationship Specialty Start Date End Date Lorna Bal APRN [address] [place] [address] PCP - General Family Medicine 05/27/18 documented as of this encounter
--- OUTSIDE RECORDS SUMMARY | 2023-12-29 14:02 | XMS_ITS | Encounter Summary ---
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
--- OUTSIDE RECORDS SUMMARY | 2023-12-29 14:02 | XMS_ITS | Encounter Summary ---
Author Organization Formerly [facility] [place] [address] Care Team Providers Care Air Defense Artillery Senior Sergeant Name Role Phone Lorna Bal APRN Primary Care Provider +1 [phone] Reason for Referral * Diagnostic Test (Routine) - Closed Specialty Diagnoses / Procedures Referred By Contac t Referred To Contact Radiology Diagnoses Abscess Procedures IR Drain Check/Change/Remove Mich Martino MD [facility] [place] [address] [place] [address] Referral ID Status Reason Start Date Expiration Date V isits Requested Visits Authorized [id number] Closed Specialty Service Requested 12/03/2023 06/04/2025 1 1 Reason for Visit * Diagnostic Test (Routine) - Closed Specialty Diagnoses / Procedures Referred By Contac t Referred To Contact Radiology Diagnoses Abscess Procedures IR Drain Check/Change/Remove Mich Martino MD [facility] [place] [address] [facility] [place] [address] Referral ID Status Reason Start Date Expiration Date V isits Requested Visits Authorized [id number] Closed Specialty Service Requested 12/03/2023 06/04/2025 1 1 Encounter Details Date Type Department Care Team (Latest Contact Info) Description 12/21/2023 11:08 AM EDT - 12/21/2023 11:59 PM EDT Hospital [place] [address] Mich Martino MD [facility] [address] [place] [address] Abscess Discharge Disposition: Home Social History Tobacco Use Types Packs/Day Years Used Date Smoking Tobacco: Never Passive Smoke Exposure: Never Smokeless Tobacco: Never Comments:NO SMOKERS IN THE H OME Alcohol Use Standard Drinks/Week Comments No 0 (1 standard drink = 0.6 oz pur e alcohol) [facility] Utilities Answer Date Recorded In the past 12 months has th e [employer], gas, oil, or water [employer] threatened to shut off services in your [...] any time in the past 12 m [facility], were you homeless or living in a assisted (including now)? No 10/29/2023 DH IPV Inpatient Questions Answer Date Recorded Does Anyone Try to Keep You From Having Contact with Others or Doing Things Outside Your Home? no 10/29/2023 Feels Threatened by Someone no 0 07/2023 Feels Unsafe at Home or Work/School [...] this encounter Discharge Instructions * Discharge Instructions* Jose Alejandro Monsivais RN - 12/21/2023 12:18 PM EDT Discharge Instructions For Your Puncture [...] is during regular office hours, please call [phone]. If it is after regular office hours, or on weekends or holidays, please call [phone] and ask to speak to the Repair Table Operator continuity person for Interventional Radiology. You have received medication [...] - See Instructions). FLUSH PROTOCOL WITH MEDICATIONS ([facility]): Before med infusion: flush with NS 10 [...] as of this encounter Progress Notes * Jose Alejandro Monsivais RN - 12/16/2023 3:23 PM EDT [facility] Name: Tana Cavazos Date of : 1995 AGE: 28 y.o. Address: [address] [place] [address] (home) [phone] (work) Mobile: Telephone Information: Referring Provider: Mich Martino REASON FOR VISIT: Order Questions Answers Where will study be performed? [facility] Radiology [120] To be scheduled On expected date Reason for exam and clinical history: drain with residual cavity Is the patient on anticoagulant / antiplatelet therapy ? No Is the patient ? No Planned procedure: Paraspinal drain check/exchange/removal [...] [Transparent Dressings] Itching and Dermatitis Please use [id number] Cyclobenzaprine Other Reaction(s): Not available Doxycycline Other [...] Zofran 4mg 12/03/23 Drain check Local only 12/21/23 Drain removal local 1206 to procedure room 2 via stretcher. Onto table Left side lying. All monitors, O2, safety strap in place. Meds per protocol. Laboratory Results: Lab Results Component Value Date CREATININE 0.27 (L) 11/02/2023 Lab Results Component Value Date K 3.9 11/02/2023 Lab Results Component Value Date PLATELET 477 (H) 11/02/2023 documented in this encounter H&P Notes * Issa Roe MD - 12/17/2023 9:36 AM EDT Images from the original note were not included. INTERVENTIONAL RADIOLOGY FOCUSED H&P and PRE-PROCEDURE NOTE: PCP: Lorna Bal APRN Referring Provider: none Planned Procedure: Planned procedure: Drain checkDrain check, possible removal Procedure Indication: residual abscess cavity Procedure Request: Procedure request received through the Interventional Radiology eDH order queue. Presenting Diagnosis/ Complaint: Tana Cavazos is a 28 y.o. female with PMH of paraspinal drain in the setting of lumbar subcutaneous abscesses [...] fluid collection adjacent to sacral hardware and bone now s/p recent paraspinal drain check on 12/03/23. Past Medical/Surgical History: Patient Active Problem List [...] Procedures 06/25/2022 Mich Martino MD [facility] INTERVENTIONL RAD IR ALL DRAINAGE PROCEDURES 07/04/2022 IR All Drainage Procedures 07/04/2022 Mich Martino MD [facility] INTERVENTIONL RAD IR ALL DRAINAGE PROCEDURES 07/24/2022 IR All Drainage Procedures 07/24/2022 Anurag Kumar MD [facility] INTERVENTIONL RAD IR ALL DRAINAGE PROCEDURES 09/26/2022 IR All Drainage Procedures 09/26/2022 Jamaal Jenkins, DO [facility] INTERVENTIONL RAD IR ALL DRAINAGE PROCEDURES 10/30/2023 IR All Drainage Procedures 10/30/2023 Andrade Melvin MD [facility] INTERVENTIONL RAD IR DRAIN CHECK/CHANGE/REMOVE 07/01/2022 IR Drain Check/Change/Remove 07/01/2022 Jamaal Jenkins, DO [facility] INTERVENTIONL RAD IR DRAIN CHECK/CHANGE/REMOVE 08/11/2022 IR Drain Check/Change/Remove 08/11/2022 Piter Self MD [facility] INTERVENTIONL RAD IR DRAIN CHECK/CHANGE/REMOVE 08/25/2022 IR Drain Check/Change/Remove 08/25/2022 Jamaal Jenkins, DO [facility] INTERVENTIONL RAD IR DRAIN CHECK/CHANGE/REMOVE 09/10/2022 IR Drain Check/Change/Remove 09/10/2022 Mich Martino MD [facility] INTERVENTIONL RAD IR DRAIN CHECK/CHANGE/REMOVE 12/03/2023 IR Drain Check/Change/Remove [facility] INTERVENTIONL RAD PRO APPLY OF HIP CASTS, TWO LEGS 08/15/2010 CAST APPLICATION, HIP SPICA, BOTH LEGS performed by BARRERA OLIVER at [facility] MAIN OR PRO COLONOSCOPY, BIOPSY N/A 08/05/2023 COLONOSCOPY FLEXIBLE, WITH BX (WRVU 3.56) performed by Jamar Gastelum MD at [facility] ENDOSCOPY PRO I&D, POST SPINE, LUMB/SACR/LUMBOSAC N/A 05/20/2014 @I & D, OPEN, DEEP ABSCESS, LUMBAR, SACRAL, LUMBOSACRAL performed by Freddy Isbell MD at [facility] MAIN OR PRO I&D, POST SPINE, LUMB/SACR/LUMBOSAC N/A 05/26/2014 @I & D, OPEN, DEEP ABSCESS, LUMBAR, SACRAL, LUMBOSACRAL performed by Freddy Isbell MD at [facility] MAIN OR PRO IMPACT TOOTH REMOV COMP BONY N/A 06/14/2018 SURGICAL EXTRACTIONS, REMOVAL OF IMPACTED TOOTH, COMPLETELY BONY (WRVU 1.93) performed by Kieth Cotton MD at [facility] OSC PRO OSTEOTOMY FEMUR SHAFT/SUPRACONDY 08/15/2010 ??OSTEOTOMY, FEMUR SHAFT OR SUPRACONDYLAR W/O FIXATION performed by BARRERA OLIVER at [facility] MAIN OR PRO RECONSTRUC HIP SOCKET, RESEC FEM HEAD 08/15/2010 ??ACETABULOPLASTY (GIRDLESTONE), RESECTION FEMORAL HEAD, BILATERAL performed by BARRERA OLIVER [facility] MAIN OR PRO REMOVAL DEEP IMPLANT 08/15/2010 REMOVAL IMPLANT, DEEP, BRUNO performed by BARRERA OLIVER at [facility] MAIN OR PRO REMOVAL ERUPTED TOOTH WITH ELEVATION OF MUCOPERIOSTEAL FLAP N/A 06/14/2018 SURGICAL EXTRACTIONS REQUIRING ELEVATION OF MUCOPERIOSTEAL FLAP AND REMOVAL OF BONE OR SECTION OF TOOTH (WRVU 1.09) performed by Keith Cotton MD at [facility] OSC PRO REMOVE INFUSN DEVICE/PUMP N/A 05/11/2014 REMOVAL OF SPINE INFUSION PUMP performed by Jamaal Samuel MD at [facility] MAIN OR PRO REMOVE SPINAL CANAL CATHETER N/A 05/11/2014 REMOVAL OF INTRATHECAL OR EPIDURAL CATHETER performed by Jamaal Samuel MD at [facility] MAIN OR PRO REPR, DURAL/CSF LEAK, NOT REQ LAMINECTOMY N/A 05/20/2014 @REPAIR DURAL\CSF LEAK,NOT REQUIRING LAMINECTOMY performed by Freddy Isbell MD at [facility] MAIN OR Medications: Current Outpatient Medications on File Prior to Encounter Medication Sig Dispense Refill sulfamethoxazole-trimethoprim DS (Bactrim [...] - See Instructions). FLUSH PROTOCOL WITH MEDICATIONS ([facility]): Before med infusion: flush with NS 10 [...] - See Instructions). FLUSH PROTOCOL WITH MEDICATIONS ([facility]): Before med infusion: flush with NS 10 [...] tablet Take 2 tablets by mouth nightly. No current facility-administered medications on file prior to encounter. Allergies: Fluoxetine, Tegaderm [transparent dressings], Cyclobenzaprine, Doxycycline, [...] Resource Strain: Low Risk (02/21/2023) Received from [facility] Overall Financial Resource Strain (CARDIA) Difficulty of Paying Living Expenses: Not very hard Food Insecurity: No Food Insecurity (10/29/2023) Hunger Vital Sign Worried About Running Out of Food in the Last Year: Never true Ran Out of Food in the Last Year: Never true Transportation Needs: No Transportation Needs (10/29/2023) PRAPARE - Transportation Lack of Transportation (Medical): No Lack of Transportation (Non-Medical): No Physical Activity: Not on file Intimate Partner Violence: At Risk (10/29/2023) IPV Inpatient Questions Prevent Contact with Others: no Feels Threatened by Someone: no Feels Unsafe at Home: yes Physical Signs of Abuse Present: no Housing Stability: Low Risk (10/29/2023) Housing Stability Vital Sign Unable to Pay for Housing in the Last Year: No Number of Times Moved in the Last Year: 0 Homeless in the Last Year: No Significant Family History: Family History Problem Relation Age of Onset Cancer Maternal Grandmother Heart Disease Maternal Grandfather Pertinent ROS: as per HPI Labs: Lab Results Component Value Date WBC 7.5 11/02/2023 HCT 33.8 (L) 11/02/2023 PLATELET 477 (H) 11/02/2023 BUN 13 11/02/2023 CREATININE 0.27 (L) 11/02/2023 ALKPHOS 209 (H) 11/02/2023 AST 13 11/02/2023 ALBUMIN 3.5 11/02/2023 BILIDIR <0.1 04/16/2023 BILITOT <0.2 (L) 11/02/2023 ALT 27 11/02/2023 PROT 7.2 11/02/2023 K 3.9 11/02/2023 Imaging: Physical Exam: Pending (to be performed in angio the day of procedure) ASA: Pending (to be assessed in angio the day of procedure) Mallampati Class: Pending (to be assessed in angio the day of procedure) Assessment: 28 y.o. female with paraspinal abscess presenting for drain check. Plan: Planned procedure: Drain check Labs to be performed day of procedure: No labs Sedation: No Sedation Prophylactic antibiotic : None Contrast: No contrast Additional medications for procedure: Lidocaine Planned access site: back Position: Prone Consent: Pending Medications to discontinue (and days held): None Case Urgency:: G2- Elective Outpatient intervention within 8-14 days 12/17/2023 documented in this encounter Plan of Treatment Upcoming Encounters Date Type Department Care Team (Late st Contact Info) Description 06/02/2024 12:30 PM EST Office Visit [place] [address] Hollie Ambriz MD [facility] [place] [address] documented as of this encounter Procedures Procedure Name Priority Date/Time Associated Diagnosis Comments IR DRAIN CHECK/CHANGE/REMOVE Routine 12/21/2023 12:40 PM EDT Abscess documented in this encounter [...] ?? Mich Martino MD IMG IR ORDERABLES documented in this encounter Visit Diagnoses Diagnosis Abscess Cellulitis and abscess of unspecified site documented in this encounter Administered Medications Inactive Administered Medications - up to 3 most recent administrations Medication Order MAR Action Action Date Dose Rate Site iohexoL (Omnipaque) (350 mg/mL) solution 1-400 mL 1-400 mL, Other, ONCE, 1 dose, On 12/21/23 at 1330, For intra-procedural use by proceduralist., Angio/IR (Intra-Procedure), Routine Given 12/21/2023 1:30 PM EDT 5 mLs documented in this encounter Care Teams Air Defense Artillery Senior Sergeant Relationship Specialty Start Date End Date Lorna Bal APRN [address] [place] [address] PCP - General Family Medicine 05/27/18 documented as of this encounter
--- OUTSIDE RECORDS SUMMARY | 2023-12-29 14:02 | XMS_ITS | Encounter Summary ---
Author Organization [facility] Address [facility] [place] [address] Care Team Providers Care Quarrying Manager Name Role Phone Lorna Bal APRN Primary Care Provider +1 [phone] Encounter Details Date Type Department Care Team (Latest Contact Info) Description 12/21/2023 Travel Social History Tobacco Use Types Packs/Day Years Used Date Smoking Tobacco: Never Passive Smoke Exposure: Never Smokeless Tobacco: Never Comments:NO SMOKERS IN THE H OME Alcohol Use Standard Drinks/Week Comments No 0 (1 standard drink = 0.6 oz pur e alcohol) [facility] Utilities Answer Date Recorded In the past 12 months has e [employer], gas, oil, or water [employer] threatened to shut off services in your [...] PM EST Office [place] [address] Hollie Ambriz MD [facility] [place] [address] documented as of this encounter Visit Diagnoses Not on filedocumented in this encounter Care Teams Quarrying Manager Relationship Specialty Start Date End Date Lorna Bal APRN [address] [place] [address] PCP - General Family Medicine 05/27/18 documented as of this encounter
--- OUTSIDE RECORDS SUMMARY | 2023-12-29 14:02 | XMS_ITS | Encounter Summary ---
[place] [address] Care Team Providers Care Desktop Specialist Name Role Phone Lorna Bal APRN Primary Care Provider +1 [phone] Encounter Details Date Type Department Care Team (Late st Contact Info) Description 12/03/2023 1:45 PM EDT Laboratory Appointment Lab [address] [place] [address] Social History Tobacco Use Types Packs/Day Years Used Date Smoking Tobacco: Never Passive Smoke Exposure: Never Smokeless Tobacco: Never Comments:NO SMOKERS IN THE H OME Alcohol Use Standard Drinks/Week Comments No 0 (1 standard drink = 0.6 oz pur e alcohol) [facility] Utilities Answer Date Recorded In the past 12 months has [employer], gas, oil, or water [employer] threatened to shut off services in your [...] EST Office Visit [place] [address] Hollie Ambriz MD [facility] [place] [address] documented as of this encounter Visit Diagnoses Not on filedocumented in this encounter Care Teams Desktop Specialist Relationship Specialty Start Date End Date Lorna Bal APRN [address] [place] [address] PCP - General Family Medicine 05/27/18 documented as of this encounter
--- OUTSIDE RECORDS SUMMARY | 2023-12-29 14:02 | XMS_ITS | Encounter Summary ---
Author Organization [facility] Address [facility] [place] [place] [address] Care Team Providers Care Fitness Floor Attendant Name Role Phone Lorna Bal APRN Primary Care Provider +1 -[phone] Encounter Details Date Type Department Care Team (Late st Contact Info) Description 12/02/2023 Orders [place] [address] Hollie Ambriz MD [facility] [place] [address] Spinal abscess; Bacteremia Social History Tobacco Use Types Packs/Day Years Used Date Smoking Tobacco: Never Passive Smoke Exposure: Never Smokeless Tobacco: Never Comments:NO SMOKERS IN THE H OME Alcohol Use Standard Drinks/Week Comments No 0 (1 standard drink = 0.6 oz pur e alcohol) [facility] Utilities Answer Date Recorded In [...] PM EST Office [place] [address] Hollie Ambriz MD [facility] [place] [address] Scheduled Orders Name Type Priority Associated Diagnoses [...] Bacteremia documented in this encounter Care Teams Fitness Floor Attendant Relationship Specialty Start Date End Date Lorna Bal APRN [address] [place] [address] PCP - General Family Medicine 05/27/18 documented as of this encounter
--- OUTSIDE RECORDS SUMMARY | 2023-12-29 14:02 | XMS_ITS | Encounter Summary ---
Author Organization [facility] Address [facility] [place] [address] Care Team Providers Care Unpaid Intern Name Role Phone Lorna Bal APRN Primary Care Provider +1 -[phone] Encounter Details Date Type Department Care Team (Late st Contact Info) Description 12/15/2023 Notes Only Infectious Disease at [facility] [address] Yas Tracy, RN Social History Tobacco Use Types Packs/Day Years Used Date Smoking Tobacco: Never Passive Smoke Exposure: Never Smokeless Tobacco: Never Comments:NO SMOKERS IN THE H OME Alcohol Use Standard Drinks/Week Comments No 0 (1 standard drink = 0.6 oz pur e alcohol) [facility] Utilities Answer Date Recorded In the past 12 months has e electric, gas, oil, or water [employer] threatened to shut off services in your [...] any time in the past 12 m [facility], were you homeless or living in [...] of this encounter Progress Notes * Yas Tracy RN - 12/15/2023 11:35 AM EDT Returned call to clinic provider to clarify requested ID follow up labs. documented in this encounter Plan of Treatment Upcoming Encounters Date Type Department Care Team (Late st Contact Info) Description 06/02/2024 12:30 PM EST Office [place] [address] Hollie Ambriz MD [facility] [place] [address] documented as of this encounter Visit Diagnoses Not on filedocumented in this encounter Care Teams Unpaid Intern Relationship Specialty Start Date End Date Lorna Bal APRN [address] [place] [address] PCP - General Family Medicine 05/27/18 documented as of this encounter
--- OUTSIDE RECORDS SUMMARY | 2023-12-29 14:02 | XMS_ITS | Encounter Summary ---
Author Organization [facility] Address [facility] [place] [address] Care Team Providers Care Rn Prior Authorization Name Role Phone Lorna Bal APRN Primary Care Provider +1 [phone] Encounter Details Date Type Department Care Team (Latest Contact Info) Description 12/03/2023 Travel Social History Tobacco Use Types Packs/Day Years Used Date Smoking Tobacco: Never Passive Smoke Exposure: Never Smokeless Tobacco: Never Comments:NO SMOKERS IN THE H OME Alcohol Use Standard Drinks/Week Comments No 0 (1 standard drink = 0.6 oz pur e alcohol) [facility] Utilities Answer Date Recorded In the past 12 months has e [employer], gas, oil, or water [employer] threatened to shut off services in your [...] PM EST Office [place] [address] Hollie Ambriz MD [facility] [place] [address] documented as of this encounter Visit Diagnoses Not on filedocumented in this encounter Care Teams Rn Prior Authorization Relationship Specialty Start Date End Date Lorna Bal APRN [address] [place] [address] PCP - General Family Medicine 05/27/18 documented as of this encounter
--- OUTSIDE RECORDS SUMMARY | 2023-12-29 14:03 | XMS_ITS | Encounter Summary ---
Author Organization [facility] Address [facility] [place] [address] Care Team Providers Care Aerospace Stress Engineer Name Role Phone Lorna Bal APRN Primary Care Provider [phone] [phone] Reason for Visit * Reason Onset Date Comments Medication Refill 08/11/2023 Encounter Details Date Type Department Care Team (Late st Contact Info) Description 08/11/2023 [place] [address] Hollie Ambriz MD [facility] [address] INFECTIOUS [place] [address] Social History Tobacco Use Types Packs/Day Years [...] PM EST Office [place] [address] Hollie Ambriz MD [facility] INFECTI[place] [address] documented as of this encounter Visit Diagnoses Not on filedocumented in this encounter Care Teams Aerospace Stress Engineer Relationship Specialty Start Date End Date Lorna Bal APRN [address] [place] [address] PCP - General Family Medicine 05/27/18 documented as of this encounter
--- OUTSIDE RECORDS SUMMARY | 2023-12-29 14:03 | XMS_ITS | Encounter Summary ---
Author [place] [address] Care Team Providers Care Business Office Manager Name Role Phone Lorna Bal APRN Primary Care Provider [phone] [phone] Reason for Referral * Consultation (Routine) - Authorized Specialty Diagnoses / Procedures Referred By Karlo duarte Referred To Contact Orthopaedics Diagnoses Contracture of joint of hand, 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 Lorna Bal APRN [address] [place] [address] [facility] [address] [place] [id number] Referral ID Status Reason Start Date Expiration Date Visits Requested Visits Authorized [id number] Authorized Consult, Test & Treat PCP Updated and/or Approved 08/03/2023 08/02/2024 6 6 Encounter Details Date Type Department Care Team (Latest Contact Info) Description 08/03/2023 Transcribe Orders eDH Incoming Referrals [phone] Lorna Bal APRN [address] [place] [address] Contracture of joint of hand, unspecified laterality [...] EST Office Visit [place] [address] Hollie Ambriz MD [facility] [place] [address] Scheduled Referrals Name Type Priority Associated Diagnoses Orde r Schedule Referral to Orthopaedics Outpatient Referral Routine Contracture of joint of hand, unspecified laterality Ordered: 08/03/2023 documented as of this encounter Visit Diagnoses Diagnosis Contracture of joint of hand, unspecified laterality documented in this encounter Care Teams Business Office Manager Relationship Specialty Start Date End Date Lorna Bal APRN [address] [place] [address] PCP - General Family Medicine 05/27/18 documented as of this encounter
--- OUTSIDE RECORDS SUMMARY | 2023-12-29 14:03 | XMS_ITS | Encounter Summary ---
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 Followed up with in [place]. MRI was not possible sec. To hardware. CRP/ESR was trending upwards. [facility]G referred her to [facility] for surgery. The patient went to [...] liquefied hematoma or abscess. Neurosurgeon recommended continuing assisted suppressive antibiotics. Subjective: We called and talked [...] Tipton MD Infectious Diseases Fellow- [id number] Pager: [phone] 07/01/2023 5:26 PM Plan discussed with Dr. Nikolay Toledo This note was created using [employer]) voice recognition software. * Nikolay Toledo MD [...] I am not in favor of continuing termite technician suppressive antibiotics. We discussed a tentative stopping [...] MD - 07/02/2023 11:00 AM ESTAddended by: NKIOLAY TOLEDO on: 07/02/2023 04:47 PM Modules accepted: Level of Service documented in this encounter Plan of Treatment Upcoming Encounters Date Type Department Care Team (Late st Contact Info) Description 06/02/2024 12:30 PM EST Office Visit [place] [address] Nikolay Toledo MD [facility] [place] [address] documented as of this encounter Visit Diagnoses Diagnosis Spinal abscess Acute osteomyelitis, other specified site lobsterman 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 Encounter for long-term (current) use of antibiotics documented in this encounter Care Teams Cleaning Laborer Relationship Specialty Start Date End Date Lorna Bal APRN [address] [place] [address] PCP - General Family Medicine 05/27/18 documented as of this encounter
--- OUTSIDE RECORDS SUMMARY | 2023-12-29 14:03 | XMS_ITS | Encounter Summary ---
[place] [address] Care Team Providers Care Wastewater Design Engineer Name Role Phone Lorna Bal APRN Primary Care Provider [phone] Reason for Referral * Occupational Therapy (Routine) - Closed Specialty Diagnoses / Procedures Referred By Contmonica t Referred To Contact Occupational Therapy Diagnoses Chronic pain of right thumb Lucho Foster MD [facility] [place] [address] [facility] [place] [address] Referral ID Status Reason Start Date Expiration Date V isits Requested Visits Authorized [id number] Closed Consult Only 09/29/2023 09/28/2024 30 30 * Physical Therapy (Routine) - Authorized Specialty Diagnoses / Procedures Referred By Contac t Referred To Contact Physical Therapy Diagnoses Chronic pain of right thumb Lucho Foster MD [facility] [place] [address] Referral ID Status Reason Start Date Expiration Date Visits Requested Visits Authorized [id number] Authorized Evaluate and Treat 09/29/2023 03/27/2024 12 12 Reason for Visit * Reason Comments Establish Care CONTRACTURE OF R VIKAS MB NO KNOWN INJURY Hx OF RELEASE DOS: ([facility]) [place] * Consultation (Routine) - Authorized Specialty Diagnoses / Procedures Referred By Contac t Referred To Contact Orthopaedics Diagnoses Contracture of joint of hand, 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 Lorna Bal APRN [address] [place] [address] [facility] [address] [place] [id number] Referral ID Status Reason Start Date Expiration Date Visits Requested Visits Authorized [id number] Authorized Consult, Test & Treat PCP Updated and/or Approved 08/03/2023 08/02/2024 6 6 Encounter Details Date Type Department Care Team (Latest Contact Info) Description 09/29/2023 10:30 AM EDT Office [place] [address] Chuckie Mayfield MD [facility] [place] [address] Chronic pain of right thumb; 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 Living situation: dual housing with two merchandising lead caregivers. Fannie is Guardian. Thumb in palm [...] [Transparent Dressings] Itching and Dermatitis Please use [id number] Cyclobenzaprine Other Reaction(s): Not available Doxycycline Other (See Comments) Cough, rash Penicillins Social history: Social History Tobacco Use Smoking status: Never Passive exposure: Never Smokeless tobacco: Never Tobacco comments: NO SMOKERS IN THE HOME Substance Use Topics Alcohol use: No Occupation: disabled Questionnaire Responses: 03/18/2019 [facility] Surgical Postop Visit PROMIS-10 General Health [...] PM EST Office [place] [address] Hollie Ambriz MD [facility] [place] [address] Scheduled Referrals Name Type Priority Associated Diagnoses [...] unspecified documented in this encounter Care Teams Wastewater Design Engineer Relationship Specialty Start Date End Date Lorna Bal, METAL BUILDING ASSEMBLER [address] [place] [address] PCP - General Family Medicine 05/27/18 documented as of this encounter
--- OUTSIDE RECORDS SUMMARY | 2023-12-29 14:03 | XMS_ITS | Encounter Summary ---
Author Organization [facility] Address [facility] [place] [address] Care Team Providers Care Eligibility Technician Name Role Phone Lorna Bal APRN Primary Care Provider [phone] [phone] Encounter Details Date Type Department Care Team (Late st Contact Info) Description 09/28/2023 Orders [place] [address] Hollie Ambriz MD [facility] [place] [address] senior care 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; Spinal [...] PM EST Office [place] [address] Hollie Ambriz MD [facility] [place] [address] documented as of this encounter Visit Diagnoses 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
--- OUTSIDE RECORDS SUMMARY | 2023-12-29 14:03 | XMS_ITS | Encounter Summary ---
Author Organization [facility] Address [facility] [place] [address] Care Team Providers Care Director Food And Beverage Name Role Phone Lorna Bal APRN Primary Care Provider [phone] [phone] Encounter Details Date Type Department Care Team (Late st Contact Info) Description 10/28/2023 Telephone [place] [address] Neva Thorpe, RN Social History Tobacco Use Types Packs/Day Years Used Date Smoking Tobacco: Never Passive Smoke Exposure: Never Smokeless Tobacco: Never Comments:NO SMOKERS IN THE H OME Alcohol Use Standard Drinks/Week Comments No 0 (1 standard drink = 0.6 oz pur e alcohol) [facility] Utilities Answer Date Recorded In the past 12 months has e [employer], gas, oil, or water [employer] threatened to shut off services in your [...] PM EST Office Visit [place] [address] Hollie Ambriz MD [facility] [address] documented as of this encounter Visit Diagnoses Not on filedocumented in this encounter Care Teams Director Food And Beverage Relationship Specialty Start Date End Date Lorna Bal APRN [address] [place] [address] PCP - General Family Medicine 05/27/18 documented as of this encounter
--- OUTSIDE RECORDS SUMMARY | 2023-12-29 14:03 | XMS_ITS | Encounter Summary ---
Author Organization [facility] [place] [address] Care Team Providers Care Seismic Interpreter Name Role Phone Lorna Bal APRN Primary Care Provider [phone] [phone] Encounter Details Date Type Department Care Team [...] PM EST Office Visit Infectious Disease [place] [address] Hollie Ambriz MD [facility] [place] [address] documented as of this encounter Visit Diagnoses Not on filedocumented in this encounter Care Teams Seismic Interpreter Relationship Specialty Start Date End Date Lorna Bal APRN [address] [place] [address] PCP - General Family Medicine 05/27/18 documented as of this encounter
--- OUTSIDE RECORDS SUMMARY | 2023-12-29 14:03 | XMS_ITS | Encounter Summary ---
Author Organization [facility] [place] [address] Care Team Providers Care Science Technicians Name Role Phone Lorna Bal APRN Primary Care Provider [phone] [phone] Encounter Details Date Type Department Care Team (Late st Contact Info) Description 08/11/2023 Telephone [place] [address] Halima García Social History Tobacco Use Types [...] (Bactrim) 400-80 mg tablet. Please send to: [facility] [place], [place] - [address] [facility] documented in this encounter Plan of Treatment Upcoming Encounters Date Type Department Care Team (Late st Contact Info) Description 06/02/2024 12:30 PM EST Office [place] [address] Hollie Ambriz MD [facility] [place] [address] documented as of this encounter Visit Diagnoses Not on filedocumented in this encounter Care Teams Science Technicians Relationship Specialty Start Date End Date Lorna Bal APRN [address] [place] [address] PCP - General Family Medicine 05/27/18 documented as of this encounter
--- OUTSIDE RECORDS SUMMARY | 2023-12-29 14:03 | XMS_ITS | Encounter Summary ---
Author Organization [facility] Address [place] [address] Care Team Providers Care Manager Gyn Name Role Phone Lorna Bal APRN Primary Care Provider +1 [phone] Encounter Details Date Type Department Care Team (Late st Contact Info) Description 10/28/2023 Telephone [place] [address] Neva Thorpe, RN Social History Tobacco Use Types Packs/Day Years Used Date Smoking Tobacco: Never Passive Smoke Exposure: Never Smokeless Tobacco: Never Comments:NO SMOKERS IN THE H OME Alcohol Use Standard Drinks/Week Comments No 0 (1 standard drink = 0.6 oz pur e alcohol) [facility] Utilities Answer Date Recorded In the past 12 months has e [employer], gas, oil, or water [employer] threatened to shut off services in [...] any time in the past [address] [facility], were you homeless or living in a [facility] (including now)? No 10/29/2023 [facility] IPV Inpatient [...] PM EST Office [place] [address] Hollie Ambriz MD [facility] [place] [address] documented as of this encounter Visit Diagnoses Not on filedocumented in this encounter Care Teams Manager Gyn Relationship Specialty Start Date End Date Lorna Bal APRN [address] [place] [address] PCP - General Family Medicine 05/27/18 documented as of this encounter
--- OUTSIDE RECORDS SUMMARY | 2023-12-29 14:03 | XMS_ITS | Encounter Summary ---
Author Organization [facility] [place] [address] Care Team Providers Care Waterproofer Helper Name Role Phone Lorna Bal APRN Primary Care Provider [phone] Reason for Referral * Consultation (Routine) - Closed Specialty Diagnoses / Procedures Referred By Contac t Referred To Contact Infectious Diseases Diagnoses Spinal abscess Hollie Ambriz MD [facility] [place] [address] Hollie Ambriz MD [facility] [place] [address] Referral ID Status Reason Start Date Expiration Date V isits Requested Visits Authorized [id number] Closed Assume Subset of Care 11/02/2023 11/01/2024 1 1 * Home Health Care (Routine) - Authorized Specialty Diagnoses / Procedures Referred By Contac t Referred To Contact Diagnoses Spinal abscess Wally Rosen MD [facility] [place] [address] [facility] & [address] [place] [address] Referral ID Status Reason Start Date Expiration Date Visits Requested Visits Authorized [id number] Authorized Consult, Test & Treat 11/03/2023 05/01/2024 999 999 * Diagnostic Test (Routine) - Closed Specialty Diagnoses / Procedures Referred By Contac t Referred To Contact Radiology Diagnoses Abscess Procedures IR Drain Check/Change/Remove Andrade Melvin MD [facility] [place] [address] [facility] [place] [address] Referral ID Status Reason Start Date Expiration Date V isits Requested Visits Authorized [id number] Closed Specialty Service Requested 10/30/2023 05/01/2025 1 1 Reason for Visit * Reason Comments Abscess In back * Auth/Cert (Routine) Specialty Diagnoses / Procedures Referred By Contac t Referred To Contact Diagnoses Abscess Procedures EMERGENCY IPI Sharron Winters MD [facility] [place] [address] [facility] Referral ID Status Reason Start Date Expiration Date Visits Re quested Visits Authorized [id number] 1 1 Encounter Details Date Type Department Care Team (Latest Contact Info) Description 10/28/2023 8:05 PM EDT - 11/03/2023 5:25 PM EDT Hospital Encounter Medical Specialites Unit Level 1 [place] [address] Siomara Hernandez MD [facility] [place] [address] Andrade Ocampo MD [facility] [place] [address] [place] [address] [place] [address] [place] [address] Abscess; Spinal abscess Discharge Disposition: Home with VNA Social History Tobacco Use Types Packs/Day Years Used Date Smoking Tobacco: Never Passive Smoke Exposure: Never Smokeless Tobacco: Never Comments:NO SMOKERS IN THE H OME Alcohol Use Standard Drinks/Week Comments No 0 (1 standard drink = 0.6 oz pur e alcohol) [facility] Utilities Answer Date Recorded In the past 12 months has th e [employer], gas, oil, or water [employer] threatened to shut off services in [...] in the past 12 m [facility], were you homeless or living in a long term (including now)? No 10/29/2023 DH IPV Inpatient [...] Tana Cavazos Patient Age: 28 y.o. Language: French Race: White Ethnicity: Not nor Admit date: [...] please contact your inpatient physician through the [facility] Family Law Legal Assistant . Issues afterhours and on weekends [...] inflammatory markers. Tana was then brought to [facility], where she has been receiving her medical [...] 10/28/2023 9:50 PM) Result Value WORKSTATION ID [id number] Impression Focal heterogeneous organizing collection at the [...] who have questions please contact the health nursing care attendant that requested your imaging first. Electronically signed by: Enid Vargas MD, [facility] ([phone]), at 10/28/2023 10:17 PM XR Abdomen 1 view (Generic) (Exam End: 11/01/2023 10:14 PM) Result Value WORKSTATION ID [id number] Impression 1. Rectal distention with stool. 2. No evidence of obstruction. 3. Bony demineralization, LEFT hip dysplasia, Mcnair rods, severe scoliosis Thank you for letting us participate in the care of this patient. If you are a health care provider and have any questions regarding this report, please contact the number below. For patients who have questions please contact the health nursing care attendant that requested your imaging first. Electronically signed by: Marisela Estrella MD, [facility] ([phone]), at 11/02/2023 8:47 AM XR PICC Placement Over 5 Years with Imaging Guidance (IV Team) (Exam End: 11/03/2023 11:19 AM) Result Value WORKSTATION ID [id number] Impression Satisfactory position of left PICC. I [...] who have questions please contact the health nursing care attendant that requested your imaging first. Electronically signed by: Deb Avery MD, [facility] ([phone]), at 11/03/2023 11:55 AM Pending Studies and Lab Data: none Discharge Conditions/Prognosis: stable Discharge to: home with OPAT Updated Allergies/ADRs: Allergies Allergen Reactions Fluoxetine Other (See Comments) HIVES, HEART RACES Tegaderm [Transparent Dressings] Itching and Dermatitis Please use [id number] Cyclobenzaprine Other Reaction(s): Not available Doxycycline Other (See Comments) Cough, rash Penicillins Immunizations Given this Hospitalization: Immunization History Administered Date(s) Administered Influenza (Novel O7Y6-70) Injectable 02/25/2009 Influenza Trivalent w/Preservative 04/25/2011 Influenza [...] for 6 weeks Your Inpatient Doctor(s) at [facility]: Paola Betancur General Instructions None Future Appointments and Orders Future Appointments and Orders Future Appointments Provider Department Dept Phone 11/30/2023 12:50 PM [facility] IR ROOM 4 Radiology at [facility] Arrive at: 3 RADIOLOGY [phone] Please expect a call from a radiology nurse within 3 days of your exam, you will need to follow theinstructions given at that time. Future Orders Complete By Expires IR Drain Check/Change/Remove [[id number] Custom] 11/30/2023 (Approximate) 05/31/2024 Process Instructions: Scheduling Instructions: Comments: Questions: Where will study be performed?: [facility] Radiology To be scheduled: Next available [...] Recommendation for Post Discharge IV Antibiotic Management [XXR684 CPT(R)] As directed Process Instructions: If no progress note charted, please enter Clinical details in comments. Scheduling Instructions: Comments: - If this order was signed greater than 72 hours prior to [facility] discharge, please call to confirm the accuracy of this order. Please Fax all results to: OPAT Program Infectious Disease Section [facility], [place] [address] FAX: - After hours, please contact the Infectious Disease Physician service person at . - Line care instructions - see flush/heparin orders. Facilities may follow organizational policies/practices regarding heparin. - penitentiary for medication administration/supervisor tank house and catheter care/maintenance authorized. - CVC/PICC Dressing Change weekly and PRN Please use CHG or Bio Patch RN: Please care for PICC line including dressing changes weekly and prn. Please draw labs every Thursday and PRN and fax results to [facility] at [phone]. Please draw labs off [facility] line. [facility]. Please RN visit for IV ABX teaching and ongoing assessment. Correction for Medication Administration/Hookup and catheter care/maintenance: - Teach Patient/Caregiver goals/self-monitoring/therapy administration to independence per the Nursing Care Plan. - penitentiary visit frequency; initial, weekly and 2 PRN [...] Osteomyelitis and hardware infection of lower mid mill order scheduler to sacral region of spine S/P drain placement on 10/30 Microorganisms being treated: Unknown Special Instructions: After IV ABX, should transition back to terminal superintendent suppression with TMP-SMX Antibiotic: Ceftriaxone 2G IV [...] Tana Cavazos for admission to Home Health. [address] [place] [id number] (home) [phone] (work) Date of : 1995 Inpatient DOCUMENTATION FOR VNA SERVICES (INCLUDING THOSE PATIENTS WITH MEDICARE COVERAGE REQUIRING HOME VNA SERVICES AND/OR HOSPICE SERVICES) PATIENT'S LOCATION: Tana Cavazos [address] [facility] [address] (home) Cell: Telephone Information: Clinical Provider Trainer's Name: Fannie Villarreal (Guardian) [phone] (M) In discussion with the attending physician, it is certified that this patient is under their care and that they, or a Nurse Practitioner, Clinical Nurse specialist or Physician Drilling Plant Operator who is working directly with them, had [...] routine PICC care) HOME HEALTH CARE AGENCY: [facility]. [address] [place] [phone] START OF CARE: within 24-48 hours of discharge Questions: Disciplines Requested: Nursing Recurring Lab Work Interval Expires CBC (with Diff) [[id number] Custom] Once a week until 01/03/2024 01/03/2024 Process Instructions: Scheduling Instructions: Comments: To be Drawn on Thursday. Please fax orders to [facility] ID at [phone]. Questions: Comprehensive metabolic panel (non-fasting) [[id number] Custom] Once a week until 01/03/2024 01/03/2024 Process Instructions: Scheduling Instructions: Comments: To be Drawn on Thursday. Please fax orders to [facility] ID at [phone]. Questions: CRP, acute inflammation [[id number] Custom] Once a week until 01/03/2024 01/03/2024 Process Instructions: Scheduling Instructions: Comments: To be Drawn on Thursday. Please fax orders to [facility] ID at [phone]. Questions: Discharge References/Attachments None documented in this [...] for 6 weeks Your Inpatient Doctor(s) at [facility]: Paola Carrington and Danita documented in this encounter Medications at Time of Discharge Medication Sig Dispensed Refills Start Date End Date sodium chloride 0.9 %, flush, (BD PosiFlush [...] Estimated EOT 12/11/2023 78 each 11/02/2023 12/11/2023 ergocalciferoL, vitamin D2, (vitamin D2) 50,000 unit [...] spent >30 minutes (Day of Discharge Code 54487) involved in the final examination of the [...] minimumof two midnights or is on the [facility] inpatient only procedure list (status C) [...] 10/28/2023 9:50 PM) Result Value WORKSTATION ID [id number] Impression Focal heterogeneous organizing collection at the [...] who have questions please contact the health nursing care attendant that requested your imaging first. Electronically signed by: Enid Vargas MD, [facility] ([phone]), at 10/28/2023 10:17 PM XR Abdomen 1 view (Generic) (Exam End: 11/01/2023 10:14 PM) Result Value WORKSTATION ID [id number] Impression 1. Rectal distention with stool. 2. No evidence of obstruction. 3. Bony demineralization, LEFT hip dysplasia, Mcnair rods, severe scoliosis Thank you for letting us participate in the care of this patient. If you are a health care provider and have any questions regarding this report, please contact the number below. For patients who have questions please contact the health nursing care attendant that requested your imaging first. Electronically signed by: Marisela Estrella MD, [facility] ([phone]), at 11/02/2023 8:47 AM ECG: No results [...] and washout with complex plastics closure at [facility] in [place] on 02/11, after which [...] which she should likely transition back to terminal superintendent suppression with TMP-SMX. Recommendations: - Stop daptomycin - Continue IV ceftriaxone 2g daily for a total of 6 weeks, ending on 12/11/2023 - After finishing above, should transition back to group home suppression with TMP-SMX - Cleared from ID perspective for PICC placement - Check CBC w/ diff, CMP, and CRP weekly to monitor for clinical progression and antimicrobial toxicity - We will arrange ID follow-up appointment prior to completion of IV ceftriaxone I spent a total of 50 minutes on the jaqu-bf-sraj encounter, chart review, documentation, and coordination of [...] 10/28/2023 9:50 PM) Result Value WORKSTATION ID [id number] Impression Focal heterogeneous organizing collection at the [...] who have questions please contact the health nursing care attendant that requested your imaging first. Electronically signed by: Enid Vargas MD, [facility] ([phone]), at 10/28/2023 10:17 PM ECG: No results [...] 10/28/2023 9:50 PM) Result Value WORKSTATION ID [id number] Impression Focal heterogeneous organizing collection at the [...] who have questions please contact the health nursing care attendant that requested your imaging first. Electronically signed by: Enid Vargas MD, [facility] ([phone]), at 10/28/2023 10:17 PM ECG: No results [...] check follow up in 4 weeks ordered, bench manager updated. Willis Calero DO, MBA Interventional Radiology 10/31/2023 [id number] * Dimple Jimenez RN - 10/30/2023 3:33 PM EDT Called report to EUNICE Kevin at [phone] * Dimple Jimenez RN - 10/30/2023 3:04 PM EDT [facility] Name: Tana Cavazos Date of : 1995 AGE: 28 y.o. Address: [address] [place] [address] (home) [phone] (work) Mobile: Telephone Information: Referring Provider: None [...] [Transparent Dressings] Itching and Dermatitis Please use [id number] Cyclobenzaprine Other Reaction(s): Not available Doxycycline Other [...] minimumof two midnights or is on the [facility] inpatient only procedure list (status C) [...] 10/28/2023 9:50 PM) Result Value WORKSTATION ID [id number] Impression Focal heterogeneous organizing collection at the [...] who have questions please contact the health nursing care attendant that requested your imaging first. Electronically signed by: Enid Vargas MD, [facility] ([phone]), at 10/28/2023 10:17 PM ECG: No results found for: DIAGLINE, QTCCALC * Kristina Rodriguez RN - 10/30/2023 9:26 AM EDT IR for drain placement today for a paraspinal fluid collection; then ID will need to be consulted for results and to decide on OPAT They have requested referrals to: [address] or Note routed to a Phlebotomy Services Representative who will communicate referrals to facilities and [...] minimumof two midnights or is on the [facility] inpatient only procedure list (status C) [...] 10/28/2023 9:50 PM) Result Value WORKSTATION ID [id number] Impression Focal heterogeneous organizing collection at the [...] who have questions please contact the health nursing care attendant that requested your imaging first. Electronically signed by: Enid Vargas MD, [facility] ([phone]), at 10/28/2023 10:17 PM ECG: No results [...] Procedure Request: Interventional Radiology Service contacted by special care hospital medicine at 12:15 PM regarding the [...] (bilateral); Reconstruc Hip Socket, Resec Fem Head (30801) (08/15/2010); Apply Of Hip Casts, Two Legs (34679) (08/15/2010); Removal Deep Implant (02749) (08/15/2010); Osteotomy Femur Shaft/Supracondy (60360) (2010); Remove Spinal Canal Catheter (73469) (N/A, 05/11/2014); Remove Infusn Device/Pump (76374) (N/A, 05/11/2014); I&D, Post Spine, Lumb/Sacr/Lumbosac (39138) (N/A, 05/20/2014); Repr, Dural/Csf Leak, Not Req Laminectomy (26690) (N/A, 05/20/2014); I&D, Post Spine, Lumb/Sacr/Lumbosac (43991) (N/A, 05/26/2014); Impact Tooth Remov Comp Bony (D7240) (N/A, 06/14/2018); Rem Imp Tooth W Mucoper Flp (D7210) (N/A, 06/14/2018); IR All Drainage Procedures (06/25/2022); IR Drain Check/Change/Remove (07/01/2022); IR All Drainage Procedures (07/04/2022); IR All Drainage Procedures (07/24/2022); IR Drain Check/Change/Remove (08/11/2022); IR Drain Check/Change/Remove (08/25/2022); IR Drain Check/Change/Remove (09/10/2022); IR All Drainage Procedures (09/26/2022); and Colonoscopy, Biopsy (36644) (N/A, 08/05/2023). Medications: Current Outpatient Medications Medication [...] Interventional & Diagnostic Radiology IR Team Pager: [phone] Personal Pager [phone] 10/29/2023 * Sharron Winters MD - 10/29/2023 [...] inflammatory markers. Tana was then brought to [facility], where she has been receiving her medical [...] All Drainage Procedures 06/25/2022 Mich Martino MD [facility] INTERVENTIONL RAD IR ALL DRAINAGE PROCEDURES 07/04/2022 IR All Drainage Procedures 07/04/2022 Mich Martino MD [facility] INTERVENTIONL RAD IR ALL DRAINAGE PROCEDURES 07/24/2022 IR All Drainage Procedures 07/24/2022 Anurag Kumar MD [facility] INTERVENTIONL RAD IR ALL DRAINAGE PROCEDURES 09/26/2022 IR All Drainage Procedures 09/26/2022 Jamaal Jenkins, DO [facility] INTERVENTIONL RAD IR DRAIN CHECK/CHANGE/REMOVE 07/01/2022 IR Drain Check/Change/Remove 07/01/2022 Jamaal Jenkins, DO [facility] INTERVENTIONL RAD IR DRAIN CHECK/CHANGE/REMOVE 08/11/2022 IR Drain Check/Change/Remove 08/11/2022 Piter Self MD [facility] INTERVENTIONL RAD IR DRAIN CHECK/CHANGE/REMOVE 08/25/2022 IR Drain Check/Change/Remove 08/25/2022 Jamaal Jenkins, DO [facility] INTERVENTIONL RAD IR DRAIN CHECK/CHANGE/REMOVE 09/10/2022 IR Drain Check/Change/Remove 09/10/2022 Mich Martino MD [facility] INTERVENTIONL RAD PRO APPLY OF HIP CASTS, TWO LEGS 08/15/2010 CAST APPLICATION, HIP SPICA, BOTH LEGS performed by BARRERA OLIVER at [facility] MAIN OR PRO COLONOSCOPY, BIOPSY N/A 08/05/2023 COLONOSCOPY FLEXIBLE, WITH BX (WRVU 3.56) performed by Jamar Gastelum MD at [facility] ENDOSCOPY PRO I&D, POST SPINE, LUMB/SACR/LUMBOSAC N/A 05/20/2014 @I & D, OPEN, DEEP ABSCESS, LUMBAR, SACRAL, LUMBOSACRAL performed by Freddy Isbell MD at [facility] MAIN OR PRO I&D, POST SPINE, LUMB/SACR/LUMBOSAC N/A 05/26/2014 @I & D, OPEN, DEEP ABSCESS, LUMBAR, SACRAL, LUMBOSACRAL performed by Freddy Isbell MD at [facility] MAIN OR PRO IMPACT TOOTH REMOV COMP BONY N/A 06/14/2018 SURGICAL EXTRACTIONS, REMOVAL OF IMPACTED TOOTH, COMPLETELY BONY (WRVU 1.93) performed by Keith Cotton MD at [facility] OSC PRO OSTEOTOMY FEMUR SHAFT/SUPRACONDY 08/15/2010 ??OSTEOTOMY, FEMUR SHAFT OR SUPRACONDYLAR W/O FIXATION performed by BARRERA OLIVER at [facility] MAIN OR PRO RECONSTRUC HIP SOCKET, RESEC FEM HEAD 08/15/2010 ??ACETABULOPLASTY (GIRDLESTONE), RESECTION FEMORAL HEAD, BILATERAL performed by BARRERA OLIVER [facility] MAIN OR PRO REMOVAL DEEP IMPLANT 08/15/2010 REMOVAL IMPLANT, DEEP, BRUNO performed by BARRERA OLIVER at [facility] MAIN OR PRO REMOVAL ERUPTED TOOTH WITH ELEVATION OF MUCOPERIOSTEAL FLAP N/A 06/14/2018 SURGICAL EXTRACTIONS REQUIRING ELEVATION OF MUCOPERIOSTEAL FLAP AND REMOVAL OF BONE OR SECTION OF TOOTH (WRVU 1.09) performed by Keith Cotton MD at [facility] OSC PRO REMOVE INFUSN DEVICE/PUMP N/A 05/11/2014 REMOVAL OF SPINE INFUSION PUMP performed by Jamaal Samuel MD at [facility] MAIN OR PRO REMOVE SPINAL CANAL CATHETER N/A 05/11/2014 REMOVAL OF INTRATHECAL OR EPIDURAL CATHETER performed by Jamaal Samuel MD at [facility] MAIN OR PRO REPR, DURAL/CSF LEAK, NOT REQ LAMINECTOMY N/A 05/20/2014 @REPAIR DURAL\CSF LEAK,NOT REQUIRING LAMINECTOMY performed by Freddy Isbell MD at [facility] MAIN OR Prior To Admission Medications: (Not in a hospital admission) Allergies: Allergies Allergen Reactions Fluoxetine Other (See Comments) HIVES, HEART RACES Tegaderm [Transparent Dressings] Itching and Dermatitis Please use [id number] Cyclobenzaprine Other Reaction(s): Not available Doxycycline Other [...] Resource Strain: Low Risk (02/21/2023) [facility] from [facility] Overall Financial Resource Strain (CARDIA) Difficulty of Paying Living Expenses: Not very hard Food Insecurity: Unknown (02/21/2023) Re[facility] from [facility] Hunger Vital Sign Worried About Running Out of Food in the Last Year: Never true Ran Out of Food in the Last Year: Not on file Transportation Needs: No Transportation Needs (02/21/2023) Received from [facility] PRAPARE - Transportation Lack of Transportation (Medical): No Lack of Transportation (Non-Medical): No Physical Activity: Not on file Intimate Partner Violence: Unknown (02/21/2023) Received from [facility] Humiliation, Afraid, Rape, and Kick questionnaire Fear of Current or Ex-Partner: No Emotionally Abused: Not on file Physically Abused: Not on file Sexually Abused: Not on file Housing Stability: Unknown (02/21/2023) Received from [facility] Housing Stability Vital Sign Unable to Pay for Housing in the Last Year: Not on file Number of Places Lived in the Last Year: Not on file Unstable Housing in the Last Year: No Immunizations: Immunization History Administered Date(s) Administered Influenza (Novel K7M5-50) Injectable 02/25/2009 Influenza Trivalent w/Preservative 04/25/2011 Influenza [...] Regular diet DVT Prophylaxis: LMWH Anticipated Disposition: group home care facility Code Status: Attempt Cardiopulmonary [...] to the planned procedure. Hand Hygiene: The replanting machine crew did perform hand hygiene prior to line insertion. Catheter type: PICC Lot number: [id number] Procedure Technique: Skin was prepped with chlorhexidine. [...] outpatient blood draw. Patient was referred to [facility] by infectious disease for a CT of [...] nursing note reviewed. Exam conducted with a repair tech present. HENT: Head: Normocephalic and atraumatic. Cardiovascular: [...] who have questions please contact the health nursing care attendant that requested your imaging first. Electronically signed by: Enid Vargas MD, [facility] ([phone]), at 10/28/2023 10:17 PM Procedures Assessment and [...] fluid collection treated as likely infections on group home antibiotics currently Bactrim presenting with about 5 [...] surgery. Initially surgery believed to be at [facility]. Was on antibiotics until a month [...] from the original [place] [address] [facility] Vascular Access Service Peripherally Inserted Central Catheter (PICC) Teaching Sheet Peripherally inserted central catheters ([id number]-fn-[id number]) (PICC) are used when you need IV [...] midline catheter? PICC lines are used for terminal superintendent treatments. PICC lines may be used for [...] can be set up via the nurse Operating Room Registered Nurse to help you. What are possible complications [...] Vascular Access Device Selection, Insertion, and Management, [employer] 01/29. A Review of the Efficacy, Safety, Use, and Administration of [employer], [employer] 2005 * Plan of Care - Arielle Patino, EUNICE - 11/03/2023 3:34 AM EDT OUTCOME EVALUATION NOTE: OUTCOME SUMMARY: Pt tachy. MD alerted. Otherwise VSS on RA. Pt nonverbal. Unable to answer orientation questions. Felt Hat Mellowing Machine Operator at bedside. 1x BM this shift. CARMELLA [...] infusion. Please page the PICC room at [phone] or call [phone] between the hours of 7:00am and 5:30pm Thursday-Thursday for PICC line placement/scheduling. After hours the Vascular Access Service can be reached at anytime on pager [phone] PICCrequests for the following day. [...] Home Health Services: Registered Nurse Agency Referrals: [facility] [address] [place] [id number] [place] [address] or Transportation: family or friend will provide Plan going forward: Care Management will continue to follow and assist with discharge planning and coordination of care as indicated. Anticipated Date of Discharge: 11/06/2023 Kristina Rodriguez AIR BRAKE OPERATOR java front end web developer [phone] * Plan of Care - Arielle Patino RN - 11/02/2023 5:29 AM EDT OUTCOME EVALUATION NOTE: OUTCOME SUMMARY: Pt VSS on RA. Pt nonverbal. Unable to answer orientation questions. Moans and frowns when in pain. Pain medication given per JUN. Felt Hat Mellowing Machine Operator at bedside. 1x BM this shift. CARMELLA [...] - Initial Consultation ID: Tana Cavazos Room: [address] [place] [address] Consulting Service: Hospital Medicine Consulting Attending: Rebel Carrington MD Admission Date: 10/28/2023 Reason for Consult: Recurrent spinal infection HPI: Tana Cavazos is a 28 y.o. female with Hx of cerebral palsy w/ spastic quadriplegia, non-verbal at baseline, as well as prior posterolateral spinal fusion in 2008 and bilateral Girdlestones in 2010, who was admitted to [facility] in May 2022 for redness and tenderness [...] site, for which she was readmitted to [facility] on 07/22 to manage this issue. On arrival to [facility], she was afebrile without leukocytosis. Repeat of [...] evaluated by spine surgery multiple times at [facility] and was not deemeda candidate for operative intervention. Then, she was seen at [facility] for a second surgical opinion. On 08/27/2022, superficialCxs there revealed growth of Staph hemolyticus and capitis. She was initially continued on doxycycline for this but subsequently switched to TMP-SMX in early September 2022 given ?possible allergic reaction. She also did undergo re-insertion of IR drains on 09/26, with Cxs again returning negative. Eventually, she got a third surgical opinion at [facility] in [place] given the need for [...] continued to follow in ID clinic at [facility]. We discussed the equipoise as to whether [...] [Transparent Dressings] Itching and Dermatitis Please use [id number] Cyclobenzaprine Other Reaction(s): Not available Doxycycline Other [...] underlying sacrum concerning for associated osteomyelitis. Impression: Taan Cavazos is a 28 y.o. female with [...] and washout with complex plastics closure at [facility] on 02/11, after which she was [...] a total of 80 minutes on the [id number] encounter, chart review, documentation, and coordination of [...] Appropriate) * Consult Note - Kelly Cummings, [facility] - 10/30/2023 4:10 PM EDT [...] have. Alternately, during off-hours you may call [phone] to contact a pharmacist. 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 Tana was then brought to [facility], where she has been receiving her medical [...] or living in a long term (including now)?: No In the past 12 months has the [employer], gas, oil, or water [employer] threatened to shut off services in [...] Home Address confirmed as: [address] [facility] [address] Social & Family Supports: All names listed below confirmed with patient as current and correct Extended Emergency Contact Information Primary Emergency Contact: [place] [address] [facility] of [employer] Mobile Relation: Guardianship Secondary Emergency Contact: Fernanda Sorensen Mobile Relation: Paid Caregiver Mother: Anderson Thorpe Address: [address] [address] [facility] of [facility] Home Phone: [phone] Mobile Current Care Provided by: other (see comments) Provides Primary Care For: no one, unable/limited ability to care for self Caregiver if needed: other (see comments) (Fannie and Fernanda) Quality of Family relationships: helpful, supportive, involved Community Resources being provided currently: homecare agency ([facility] for blood draws.) Behavioral Health History: none [...] Insurance: N/A Prescription Coverage: Yes Preferred Pharmacy: [facility] Home Delivery - [facility] [address] [facility] [address] [facility] [id number] [facility] [address] [address] [place] Status: Patient is a : No Primary Care Provider confirmed: Lorna Bal, BREAK AND LOAD OPERATOR [phone] Patient/Caregiver Goals of Treatment: Fannie anticipates pt to return home upon discharge. Potential Needs for Transition of Care: home health care Agency Referrals: I have met with the medical office representative to: discuss discharge planning needs. provide the [facility], Office of Care Management letter from the Pediatric Orthodontist pertaining to rehab referrals. provide a letter describing our affiliations within the [facility] and educate about their right to choose where referrals are sent. provide a list of Home Health Agencies / Durable Medical Equipment vendors which serve their preferred geographic area. provided patient with [facility] Star Quality Rating handout. They have requested referrals to: [facility]. [address] [place] [address] Note routed to a Phlebotomy Services Representative who will communicate referrals to facilities and [...] care as indicated. Alicja Franklin RN, BSN, ACM-SOFTWARE SECURITY CONSULTANTweight guesser Office of Care Management Pager: [phone] * Consult Note - Zach Pierre [facility] - 10/29/2023 3:01 AM EDT [facility] Home Medication List Update for Medication Reconciliation 10/29/23 3:01 AM Tana Cavazos 1995 Allergies Allergen Reactions Fluoxetine Other (See Comments) HIVES, HEART RACES Tegaderm [Transparent Dressings] Itching and Dermatitis Please use [id number] Cyclobenzaprine Other Reaction(s): Not available Doxycycline Other (See Comments) Cough, rash Penicillins Person Interviewed: [facility] Quality of Interview/accuracy of medication list: excellent Sources used to compile medication list: [] Epic medication list [] SureScripts/Dispense Report [] PCP/Specialist list [x] Retail pharmacy [] Patient list [] MAR [] Other Changes made to home medication list: Additions: Bisacodyl prn Deletions: Nystatin, Probiotic, Vitamin, Psyllium Changes: None Additional Notes: [facility] Medication List Recommended changes: None The home medication list is now updated to the best of my knowledge and is ready to be reconciled by the provider. Please contact the TelePhaacy Medication Reconciliation Pharmacist at for any questions. Zach Pierre [facility] * Consult Note - Zach [...] the patient underwent a revision surgery in [place], [place] that involved removal of a R [...] All Drainage Procedures 06/25/2022 Mich Martino MD [facility] INTERVENTIONL RAD IR ALL DRAINAGE PROCEDURES 07/04/2022 IR All Drainage Procedures 07/04/2022 Mich Martino MD [facility] INTERVENTIONL RAD IR ALL DRAINAGE PROCEDURES 07/24/2022 IR All Drainage Procedures 07/24/2022 Anurag Kumar MD [facility] INTERVENTIONL RAD IR ALL DRAINAGE PROCEDURES 09/26/2022 IR All Drainage Procedures 09/26/2022 Jamaal Jenkins, DO [facility] INTERVENTIONL RAD IR DRAIN CHECK/CHANGE/REMOVE 07/01/2022 IR Drain Check/Change/Remove 07/01/2022 Jamaal Jenkins, DO [facility] INTERVENTIONL RAD IR DRAIN CHECK/CHANGE/REMOVE 08/11/2022 IR Drain Check/Change/Remove 08/11/2022 Piter Self MD [facility] INTERVENTIONL RAD IR DRAIN CHECK/CHANGE/REMOVE 08/25/2022 IR Drain Check/Change/Remove 08/25/2022 Jamaal Jenkins, DO [facility] INTERVENTIONL RAD IR DRAIN CHECK/CHANGE/REMOVE 09/10/2022 IR Drain Check/Change/Remove 09/10/2022 Mich Martino MD [facility] INTERVENTIONL RAD PRO APPLY OF HIP CASTS, TWO LEGS 08/15/2010 CAST APPLICATION, HIP SPICA, BOTH LEGS performed by BARRERA OLIVER at [facility] MAIN OR PRO COLONOSCOPY, BIOPSY N/A 08/05/2023 COLONOSCOPY FLEXIBLE, WITH BX (WRVU 3.56) performed by Jamar Gastelum MD at [facility] ENDOSCOPY PRO I&D, POST SPINE, LUMB/SACR/LUMBOSAC N/A 05/20/2014 @I & D, OPEN, DEEP ABSCESS, LUMBAR, SACRAL, LUMBOSACRAL performed by Freddy Isbell MD at [facility] MAIN OR PRO I&D, POST SPINE, LUMB/SACR/LUMBOSAC N/A 05/26/2014 @I & D, OPEN, DEEP ABSCESS, LUMBAR, SACRAL, LUMBOSACRAL performed by Freddy Isbell MD at [facility] MAIN OR PRO IMPACT TOOTH REMOV COMP BONY N/A 06/14/2018 SURGICAL EXTRACTIONS, REMOVAL OF IMPACTED TOOTH, COMPLETELY BONY (WRVU 1.93) performed by Keith Cotton MD at [facility] OSC PRO OSTEOTOMY FEMUR SHAFT/SUPRACONDY 08/15/2010 ??OSTEOTOMY, FEMUR SHAFT OR SUPRACONDYLAR W/O FIXATION performed by BARRERA OLIVER at [facility] MAIN OR [facility] RECONSTRUC HIP SOCKET, RESEC FEM HEAD 08/15/2010 ??ACETABULOPLASTY (GIRDLESTONE), RESECTION FEMORAL HEAD, BILATERAL performed by BARRERA OLIVER [facility] MAIN OR PRO REMOVAL DEEP IMPLANT 08/15/2010 REMOVAL IMPLANT, DEEP, BRUNO performed by BARRERA OLIVER at [facility] MAIN OR PRO REMOVAL ERUPTED TOOTH WITH ELEVATION OF MUCOPERIOSTEAL FLAP N/A 06/14/2018 SURGICAL EXTRACTIONS REQUIRING ELEVATION OF MUCOPERIOSTEAL FLAP AND REMOVAL OF BONE OR SECTION OF TOOTH (WRVU 1.09) performed by Keith Cotton MD at [facility] OSC PRO REMOVE INFUSN DEVICE/PUMP N/A 05/11/2014 REMOVAL OF SPINE INFUSION PUMP performed by Jamaal Samuel MD at [facility] MAIN OR PRO REMOVE SPINAL CANAL CATHETER N/A 05/11/2014 REMOVAL OF INTRATHECAL OR EPIDURAL CATHETER performed by Jamaal Samuel MD at [facility] MAIN OR PRO REPR, DURAL/CSF LEAK, NOT REQ LAMINECTOMY N/A 05/20/2014 @REPAIR DURAL\CSF LEAK,NOT REQUIRING LAMINECTOMY performed by Freddy Isbell MD at [facility] MAIN OR Home Medications: (Not in a hospital admission) Allergies: Allergies Allergen Reactions Fluoxetine Other (See Comments) HIVES, HEART RACES Tegaderm [Transparent Dressings] Itching and Dermatitis Please use [id number] Cyclobenzaprine Other Reaction(s): Not available Doxycycline Other [...] course. James Swanson IV, DO Orthopaedic Surgery, [phone] ADDENDUM: Case reviewed with Dr. Galvan. Plan [...] she had I+D with hardware exchange at [facility] last year. She was doing well [...] PM EST Office [place] [address] Hollie Ambriz MD [facility] [place] [address] Scheduled Orders Name Type Priority Associated Diagnoses [...] the entire procedure. ?? Andrade Melvin MD [facility] IR ORDERABLES * Place PICC Line: Contact Vascular Access Page [phone] Extremity to exclude: No restrictions; Is PICC [...] to the planned procedure. Hand Hygiene: The replanting machine crew did perform hand hygiene prior to line insertion. Catheter type: PICC Lot number: [id number] Procedure Technique: Skin was prepped with chlorhexidine. [...] Guidance (IV Team) (11/03/2023 11:19 AM EDT) [facility] WORKSTATION ID [id number] RAD Anatomical Region Laterality Modality N/A Radio [...] who have questions please contact the health nursing care attendant that requested your imaging first. ? Electronically signed by: Deb Avery MD, [facility] ??([phone]), at 11/03/2023 11:55 AM Narrative 11/03/2023 11:55 [...] patients who have questions please contactthe health nursing care attendant that requested your imaging first. Electronically signed by: Deb Avery MD, [facility]([phone]), at 11/03/2023 11:55 AM Wally Rosen MD IMG FLUORO ORDERABLE S * Differential, Automated (11/02/2023 5:26 AM EDT) Neutrophil % 69.0 % [facility] Neutrophil Absolute 5.16 1.70 - 6.10 x10(3)/[facility] Lymph % 21.7 % [facility] Lymphocytes Abs 1.6 0.9 - 3.2 x10(3)/[facility] Monocyte % 6.8 % [facility] Monocyte Abs 0.5 0.3 - 0.9 x10(3)/[facility] Eos % 1.6 % [facility] Eosinophils Abs 0.1 0.0 - 0.4 x10(3)/[facility] Basophil % 0.5 % [facility] Baso Absolute 0.0 0.0 - 0.1 x10(3)/[facility] Immature Gran % 0.40 % [facility] Comment: Immature granulocytes(IG's)percentage and absolute count will include metamyelocytes, myelocytes, and promyelocytes. Blood smears from CBCs yielding IG's will be scanned manually for concordance. If this scan disagrees with the automated IG or if promyelocytes are noted, a manual differential will be performed. Immature Gran Absolute 0.03 0.00 - 0.04 x10(3)/[facility] Blood 11/02/2023 5:26 AM EDT 11/02/2023 5:43 AM EDT Narrative Resulting Agency Comment Spec In Lab Wally Rosen MD HEMATOLOGY ORDERABLE S [facility] [address] * (ABNORMAL) Hemogram (11/02/2023 5:26 AM EDT) [facility] NRBC% auto 0.0 % [facility] NRBC Absolute 0.000 0.000 - 0.000 x10(3)/mc L [facility] Blood 11/02/2023 5:26 AM EDT 11/02/2023 5:43 AM EDT Narrative Resulting Agency Comment Spec In Lab Wally Rosen MD HEMATOLOGY ORDERABLE S Performing Organization Address [facility] Co de Phone Number [facility] [place] [address] * CK (11/02/2023 5:26 AM EDT) Creatine Kinase 14 0 - 160 unit/L [facility] Blood 11/02/2023 5:26 AM EDT 11/02/2023 5:44 AM EDT Narrative Resulting Agency Comment Spec In Lab Wally Rosen MD CHEMISTRY ORDERABLES Performing Organization Address [facility] de Phone Number [facility] [place] [address] * (ABNORMAL) Comprehensive metabolic panel (non-fasting) (11/02/2023 [...] Rosen MD CHEMISTRY ORDERABLES Performing Organization Address [facility]/ZIP Co de Phone Number [facility] [place] [address] * (ABNORMAL) CRP, acute inflammation (11/02/2023 5:26 AM EDT) Pathologist [facility] C-Reactive Protein 62.8(H) <=4.9 mg/L [facility] Blood 11/02/2023 5:26 AM EDT 11/02/2023 5:44 AM EDT Narrative Resulting Agency Comment Spec In Lab Wally Rosen MD CHEMISTRY ORDERABLES Performing Organization Address [facility] Co de Phone Number [facility] [place] [address] * XR Abdomen 1 view (Generic) (11/01/2023 10:14 PM EDT) [facility] WORKSTATION ID [id number] [facility] Anatomical Region Laterality Modality Abdomen N/A Digital [...] who have questions please contact the health nursing care attendant that requested your imaging first. ? Narrative [...] patients who have questions please contactthe health nursing care attendant that requested your imaging first. Electronically signed by: Marisela sEtrella MD, [facility]([phone]), at 11/02/2023 8:47 AM Mindy Da Silva APRN IMG DX ORDERABLES * MRSA PCR Screen ([facility]/CGP/APD/NLH) (10/31/2023 6:10 PM EDT) [facility] MRSA PCR Negative Negative [facility] MRSA (Interp) Methicillin-resist ant Staphylococcus aureus (MRSA) is NOT DETECTED The MRSA target DNA sequences (mec and SCC) were not detected within the acceptable ranges using the Xpert MRSA NxG on the GeneXpert Dx System ([employer]). This suggests the absence of MRSA in the patient specimen submitted for testing. This test is cleared by the U.S. Food and Drug Administration for clinical use and its performance characteristics have been verified by the [facility] at [facility]. This result does not rule out the [...] Rosen MD MOLECULAR ORDERABLES Performing Organization Address City/State/[facility] Co de Phone Number [facility] [address] * Differential, Automated (10/31/2023 4:47 AM EDT) [facility] Neutrophil % 56.2 % [facility] Neutrophil Absolute 2.93 1.70 - 6.10 x10(3)/[facility] Lymph % 32.1 % [facility] Lymphocytes Abs 1.7 0.9 - 3.2 x10(3)/[facility] Monocyte % 9.0 % [facility] Monocyte Abs 0.5 0.3 - 0.9 x10(3)/[facility] Eos % 1.7 % [facility] Eosinophils Abs 0.1 0.0 - 0.4 x10(3)/[facility] Basophil % 0.8 % [facility] Baso Absolute 0.0 0.0 - 0.1 x10(3)/[facility] Immature Gran % 0.20 % [facility] Comment: Immature granulocytes(IG's)percentage and absolute count will include metamyelocytes, myelocytes, and promyelocytes. Blood smears from CBCs yielding IG's will be scanned manually for concordance. If this scan disagrees with the automated IG or if promyelocytes are noted, a manual differential will be performed. Immature Gran Absolute 0.01 0.00 - 0.04 x10(3)/[facility] Blood 10/31/2023 4:47 AM EDT 10/31/2023 4:55 AM EDT Narrative Resulting Agency Comment Spec In Lab Sharron Winters MD HEMATOLOGY ORDERABLE S Performing Organization Address City/State/[facility] Co de Phone Number [facility] [address] * (ABNORMAL) Hemogram (10/31/2023 4:47 AM EDT) [facility] NRBC% auto 0.0 % [facility] NRBC Absolute 0.000 0.000 - 0.000 x10(3)/mc L [facility] Blood 10/31/2023 4:47 AM EDT 10/31/2023 4:55 AM EDT Narrative Resulting Agency Comment Spec In Lab Sharron Winters MD HEMATOLOGY ORDERABLE S Performing Organization Address City/[facility]/ZIP Co de Phone Number [facility] [place] [address] * (ABNORMAL) CRP, acute inflammation (10/31/2023 4:47 AM EDT) C-Reactive Protein 99.2(H) <=4.9 mg/L [facility] Blood 10/31/2023 4:47 AM EDT 10/31/2023 4:55 AM EDT Narrative Resulting Agency Comment Spec In Lab Sharron Winters MD CHEMISTRY ORDERABLES Performing Organization Address City/[facility]/ZIP Co de Phone Number [facility] [place] [address] * (ABNORMAL) Basic Metabolic Panel (non-fasting) (10/31/2023 [...] Winters MD CHEMISTRY ORDERABLES Performing Organization Address City/State/[facility] Co de Phone Number [facility] [place] [address] * (ABNORMAL) Sedimentation rate (10/31/2023 4:47 AM [...] HEMATOLOGY ORDERABLE S [facility] [place] [address] * Magnesium (10/31/2023 4:47 AM EDT) Magnesium 0.86 0.69 - 1.07 mmol/L [facility] Blood 10/31/2023 4:47 AM EDT 10/31/2023 4:55 AM EDT Narrative Resulting Agency Comment Spec In Lab Sharron Winters MD CHEMISTRY ORDERABLES Performing Organization Address [facility] Co de Phone Number [facility] [place] [address] * IR All Drainage Procedures (10/30/2023 3:23 [...] performed this procedure. ? Sharron Winters MD [facility] IR ORDERABLES * Anaerobic Culture (10/30/2023 3:02 PM EDT) Anaerobic Culture No anaerobic organisms isolated [facility] Fluid 10/30/2023 3:02 PM EDT 10/30/2023 3:47 PM EDT Comment:Infected seroma/absc ess lower mid posterior presacral region. Fluid culture. Narrative Resulting Agency Comment Spec In Lab Andrade Melvin MD MICROBIOLOGY - GENER AL ORDERABLES [facility] [place] [address] * Body Fluid Culture, Aerobic (10/30/2023 3:02 PM EDT) [facility] Body Fluid Culture Rare mixed bacterial morphotypes [...] GENER AL ORDERABLES [facility] [place] [address] * CK (10/30/2023 4:48 AM EDT) [facility] Creatine Kinase 29 0 - 160 unit/L [facility] Blood Venous Draw / Unknown 10/30/2023 4:48 AM EDT 10/30/2023 5:06 AM EDT Narrative Resulting Agency Comment Spec In Lab Hollie SIMMS CHEMISTRY ORDERABLES [facility] [place] [address] * Differential, Automated (10/30/2023 4:48 AM EDT) Pathologist [facility] Neutrophil % 67.0 % [facility] Neutrophil Absolute 4.61 1.70 - 6.10 x10(3)/[facility] Lymph % 22.3 % [facility] Lymphocytes Abs 1.5 0.9 - 3.2 x10(3)/[facility] Monocyte % 8.2 % [facility] Monocyte Abs 0.6 0.3 - 0.9 x10(3)/[facility] Eos % 1.6 % [facility] Eosinophils Abs 0.1 0.0 - 0.4 x10(3)/[facility] Basophil % 0.6 % [facility] Baso Absolute 0.0 0.0 - 0.1 x10(3)/[facility] Immature Gran % 0.30 % [facility] Comment: Immature granulocytes(IG's)percentage and absolute count will include metamyelocytes, myelocytes, and promyelocytes. Blood smears from CBCs yielding IG's will be scanned manually for concordance. If this scan disagrees with the automated IG or if promyelocytes are noted, a manual differential will be performed. Immature Gran Absolute 0.02 0.00 - 0.04 x10(3)/[facility] Blood 10/30/2023 4:48 AM EDT 10/30/2023 5:01 AM EDT Narrative Resulting Agency Comment Spec In Lab Sharron Winters MD HEMATOLOGY ORDERABLE S [facility] [address] * (ABNORMAL) Hemogram (10/30/2023 4:48 AM EDT) [...] RDW Standard Deviation 45.6 37.0 - 46.0 [facility] RDW coefficient of variation 14.3(H) 11.5 - 14.1 % [facility] Mean Platelet Volume 9.3 7.6 - 12.9 [facility]OR[facility] NRBC% auto 0.0 % [facility] NRBC Absolute 0.000 0.000 - 0.000 x10(3)/mc L [facility] Blood 10/30/2023 4:48 AM EDT 10/30/2023 5:01 AM EDT Narrative Resulting Agency Comment Spec In Lab Sharron Winters MD HEMATOLOGY ORDERABLE S Performing Organization Address City/[facility]/ZIP Co de Phone Number [facility] [place] [address] * (ABNORMAL) CRP, acute inflammation (10/30/2023 4:48 AM EDT) C-Reactive Protein 120.3(H) <=4.9 mg/L [facility] Comment:result rechecked-KS Blood 10/30/2023 4:48 AM EDT 10/30/2023 5:01 AM EDT Narrative Resulting Agency Comment Spec In Lab Sharron Winters MD CHEMISTRY ORDERABLES Performing Organization Address City/[facility]/ZIP Co de Phone Number [facility] [place] [address] * (ABNORMAL) Basic Metabolic Panel (non-fasting) (10/30/2023 [...] MD CHEMISTRY ORDERABLES [facility] [place] [address] * (ABNORMAL) Sedimentation rate (10/30/2023 4:48 AM [...] HEMATOLOGY ORDERABLE S [facility] [place] [address] * Magnesium (10/30/2023 4:48 AM EDT) Pathologist [facility] Magnesium 0.89 0.69 - 1.07 mmol/L [facility] Blood 10/30/2023 4:48 AM EDT 10/30/2023 5:01 AM EDT Narrative Resulting Agency Comment Spec In Lab Sharron Winters MD CHEMISTRY ORDERABLES Performing Organization Address City/[facility] Co de Phone Number [facility] [address] * POCT urine (10/29/2023 10:26 AM EDT) [facility] POC Urine HCG Negative POC Control Internal Controls Acceptable 10/29/2023 10:2 6 AM EDT Sharron Winters MD POINT OF CARE TEST O RDERABLES * (ABNORMAL) Differential, Automated (10/29/2023 8:37 AM EDT) Neutrophil % 74.9 % [facility] Neutrophil Absolute 6.45(H) 1.70 - 6.10 x10(3)/mc L [facility] Lymph % 16.8 % [facility] Lymphocytes Abs 1.4 0.9 - 3.2 x10(3)/mc L [facility] Monocyte % 6.1 % [facility] Monocyte Abs 0.5 0.3 - 0.9 x10(3)/mc L [facility] Eos % 1.3 % [facility] Eosinophils Abs 0.1 0.0 - 0.4 x10(3)/ L [facility] Basophil % 0.6 % [facility] Baso Absolute 0.0 [...] HEMATOLOGY ORDERABL ES [facility] [place] [address] * (ABNORMAL) Hemogram (10/29/2023 8:37 AM EDT) [facility] NRBC% auto 0.0 % [facility] NRBC Absolute 0.000 0.000 - 0.000 x10(3)/mc L [facility] Blood 10/29/2023 8:37 AM EDT 10/29/2023 8:47 AM EDT Narrative Resulting Agency Comment Spec In Lab Brennan Maldonado MD HEMATOLOGY ORDERABL ES Performing Organization Address [facility]/ZIP Co de Phone Number [facility] [place] [address] * Lactate, whole blood, send to lab ([facility]) (10/29/2023 8:37 AM EDT) Lactate WB 1.8 0.5 - 2.2 mmol/L [facility] Blood 10/29/2023 8:37 AM EDT 10/29/2023 8:47 AM EDT Narrative Resulting Agency Comment Spec In Lab Brennan Maldonado MD CHEMISTRY ORDERABLE S Performing Organization Address City/[facility]/ZIP Co de Phone Number [facility] [address] * Phosphorus (10/29/2023 8:37 AM EDT) Phosphorus 3.6 2.5 - 4.5 mg/dL [facility] Blood 10/29/2023 8:37 AM EDT 10/29/2023 8:47 AM EDT Narrative Resulting Agency Comment Spec In Lab Brennan Maldonado MD CHEMISTRY ORDERABLE S [facility] [place] [address] * Magnesium (10/29/2023 8:37 AM EDT) Magnesium 0.94 0.69 - 1.07 mmol/L [facility] Blood 10/29/2023 8:37 AM EDT 10/29/2023 8:47 AM EDT Narrative Resulting Agency Comment Spec In Lab Brennan Maldonado MD CHEMISTRY ORDERABLE S [facility] [place] [address] * (ABNORMAL) Basic Metabolic Panel (non-fasting) (10/29/2023 [...] MD CHEMISTRY ORDERABLE S Performing Organization Address [facility] Co de Phone Number [facility] [address] * (ABNORMAL) Urinalysis Microscopic Exam (10/29/2023 2:33 AM EDT) RBC, Urine >100(H) 0 - 4 /HPF [facility] WBC, Urine 4 0 - 5 /HPF [facility] Squamous Epithelial Cells Raw Data, Urine 4 <=4 /HPF [facility] Hyaline Casts, Urine <1 0 - 2 /LPF [facility] Comment: Interpret results with caution, microscopic results are from suboptimal specimen volume Straight Catheter Urine 10/29/2023 2:33 AM EDT 10/29/2023 2:43 AM EDT Narrative Resulting Agency Comment Spec In Lab Sharron [place]ters MD URINE ORDERABLES Performing Organization Address [facility]/ZIP Co de Phone Number [facility] [address] * (ABNORMAL) Urinalysis with reflex Culture (10/29/2023 [...] HOSPITAL LABORATORY Leukocytes, Urine Dipstick Negative Negative [facility] Appearance, Urine Dipstick Clear Clear [facility] Specific [place] Urine Automated >=1.030(A) 1.005 - 1.030 [facility] Color, Urine Dipstick Yellow Yellow [facility] Reflex to Culture No [facility] Straight Catheter Urine 10/29/2023 2:33 AM EDT 10/29/2023 2:43 AM EDT Narrative Resulting Agency Comment Spec In Lab Sharron Winters MD URINE ORDERABLES Performing Organization Address City/[facility]/ZIP Co de Phone Number [facility] [place] [address] * (ABNORMAL) CRP, acute inflammation (10/29/2023 2:08 AM EDT) C-Reactive Protein 133.4(H) <=4.9 mg/L [facility] Blood 10/29/2023 2:08 AM EDT 10/29/2023 2:33 AM EDT Narrative Resulting Agency Comment Spec In Lab Sharron Winters MD CHEMISTRY ORDERABLES Performing Organization Address City/[facility]/ZIP Co de Phone Number [facility] [place] [address] * Phosphorus (10/29/2023 2:08 AM EDT) Phosphorus 3.1 2.5 - 4.5 mg/dL [facility] Blood 10/29/2023 2:08 AM EDT 10/29/2023 2:33 AM EDT Narrative Resulting Agency Comment Spec In Lab Sharron Winters MD CHEMISTRY ORDERABLES Performing Organization Address City/[facility] Co de Phone Number [facility] [address] * (ABNORMAL) Sedimentation rate (10/29/2023 2:08 AM EDT) [facility] Sedimentation Rate Automated >119(H) 2 - 37 [...] MD HEMATOLOGY ORDERABLE S Performing Organization Address [facility] Co de Phone Number [facility] [address] * Magnesium (10/29/2023 2:08 AM EDT) Magnesium 0.85 0.69 - 1.07 mmol/L [facility] Blood 10/29/2023 2:08 AM EDT 10/29/2023 2:33 AM EDT Narrative Resulting Agency Comment Spec In Lab Sharron Winters MD CHEMISTRY ORDERABLES Performing Organization Address [facility] Co de Phone Number [facility] [address] * CT Lumbar Spine w Contrast (10/28/2023 9:50 PM EDT) WORKSTATION ID [id number] RAD Anatomical Region Laterality Modality L-spine Computed [...] who have questions please contact the health nursing care attendant that requested your imaging first. ? Electronically signed by: Enid Vargas MD, [facility] ([phone]), at 10/28/2023 10:17 PM Narrative 10/28/2023 10:17 [...] patients who have questions please contactthe health nursing care attendant that requested your imaging first. Electronically signed by: Enid Vargas MD, [facility]([phone]), at 10/28/2023 10:17 PM Siomara Hernandez MD [facility] ORDERABLES * Differential, Automated (10/28/2023 9:00 PM EDT) Neutrophil % 66.3 % [facility] Neutrophil Absolute 5.75 1.70 - 6.10 x10(3)/[facility] Lymph % 24.1 % [facility] Lymphocytes Abs 2.1 0.9 - 3.2 x10(3)/[facility] Monocyte % 7.2 % [facility] Monocyte Abs 0.6 0.3 - 0.9 x10(3)/[facility] Eos % 1.4 % [facility] Eosinophils Abs 0.1 0.0 - 0.4 x10(3)/[facility] Basophil % 0.5 % [facility] Baso Absolute 0.0 0.0 - 0.1 x10(3)/[facility] Immature Gran % 0.50 % [facility] Comment: Immature granulocytes(IG's)percentage and absolute count will include metamyelocytes, myelocytes, and promyelocytes. Blood smears from CBCs yielding IG's will be scanned manually for concordance. If this scan disagrees with the automated IG or if promyelocytes are noted, a manual differential will be performed. Immature Gran Absolute 0.04 0.00 - 0.04 x10(3)/[facility] Blood 10/28/2023 9:00 PM EDT 10/28/2023 9:17 PM EDT Narrative Resulting Agency Comment Spec In Lab Esteban King BREAK AND LOAD OPERATOR HEMATOLOGY ORDERABLE S [facility] [address] * (ABNORMAL) Hemogram (10/28/2023 9:00 PM EDT) [...] HOSPITAL LABORATORY Platelet 525(H) 145 - 357 x10(3)/[facility] RDW Standard Deviation 43.8 37.0 - 46.0 [facility] RDW coefficient of variation 14.2(H) 11.5 - 14.1 % [facility] Mean Platelet Volume 9.2 7.6 - 12.[address] [facility] NRBC% auto 0.0 % [facility] NRBC Absolute 0.000 0.000 - 0.000 x10(3)/ L [facility] Blood 10/28/2023 9:00 PM EDT 10/28/2023 9:17 PM EDT Narrative Resulting Agency Comment Spec In Lab Esteban King APRN HEMATOLOGY ORDERABLE S [facility] [address] * (ABNORMAL) CRP, acute inflammation (10/28/2023 9:00 PM EDT) Pathologist [facility] C-Reactive Protein 148.3(H) <=4.9 mg/L [facility] Blood 10/28/2023 9:00 PM EDT 10/28/2023 9:17 PM EDT Narrative Resulting Agency Comment Spec In Lab Esteban King APRN CHEMISTRY ORDERABLES Performing Organization Address [facility] Co de Phone Number [facility] [address] * (ABNORMAL) Sedimentation rate (10/28/2023 9:00 PM EDT) Pathologist [facility] Sedimentation Rate Automated >119(H) 2 - 37 mm/hr [facility] Comment: Effective April 06, 2019 new capillary photometric technology has resulted in a change in reference ranges. It is recommended that each ESR result be reviewed with its own age appropriate reference range. Blood 10/28/2023 9:00 PM EDT 10/28/2023 9:17 PM EDT Narrative Resulting Agency Comment Spec In Lab Esteban Levycoa BREAK AND LOAD OPERATOR HEMATOLOGY ORDERABLE S Performing Organization Address [facility] de Phone Number [facility] [address] * (ABNORMAL) Basic Metabolic Panel (non-fasting) (10/28/2023 9:00 PM EDT) [facility] Glucose 88 65 - 199 mg/dL ST. [...] APRN CHEMISTRY ORDERABLES [facility] [place] [address] documented in this encounter Visit Diagnoses Diagnosis [...] ordered. documented in this encounter Care Teams Waterproofer Helper Relationship Specialty Start Date End Date Lorna Bal, [place] [address] [place] [address] PCP - General Family Medicine 05/27/18 documented as of this encounter
--- OUTSIDE RECORDS SUMMARY | 2023-12-29 14:03 | XMS_ITS | Encounter Summary ---
Author Organization [facility] [place] [address] Care Team Providers Care Teachers' Aide Name Role Phone Lorna Bal APRN Primary Care Provider [phone] Encounter Details Date Type Department Care Team (Late st Contact Info) Description 06/16/2023 Telephone [place] [phone] Martha Kennedy Social History Tobacco Use Types Packs/Day Years Used Date Smoking Tobacco: Never Smokeless Tobacco: Never Comments:NO SMOKERS IN THE H OME Alcohol Use Standard Drinks/Week Comments No 0 (1 standard drink = 0.6 oz pur e alcohol) [facility] Inpatient Questions Answer Date Recorded Does [...] PM EST Office [place] [address] Hollie Ambriz MD [facility] [place] [address] documented as of this encounter Visit Diagnoses Not on filedocumented in this encounter Care Teams Teachers' Aide Relationship Specialty Start Date End Date Lorna Bal APRN [address] [place] [address] PCP - General Family Medicine 05/27/18 documented as of this encounter
--- OUTSIDE RECORDS SUMMARY | 2023-12-29 14:03 | XMS_ITS | Encounter Summary ---
Author Organization [facility] Address [facility] [place] [address] Care Team Providers Care Roto Rooter Operator Name Role Phone Lorna Bal APRN Primary Care Provider [phone] Encounter Details Date Type Department Care Team (Late st Contact Info) Description 08/05/2023 10:15 AM EDT - 08/05/2023 11:00 AM EDT Surgery [place] [address] Jamar Gastelum MD [facility] [place] [address] COLONOSCOPY FLEXIBLE, WITH BX (WRVU 3.56) Social [...] occurs, please contact your Doctor. Please call [phone] before 8pm Mon-Fri with problems, questions or concerns. If you call after 8pm or on weekends, call the Hospital at [phone] and ask to speak to the Political Researcher litigation assistant and the boom cat operator will contact that person for you. When should you call for help? Call [phone] anytime you think you may need emergency [...] any problems. Where can you learn more? [facility] View your After Visit Summary and more online at [email or web address] If you would like to provide feedback about your hospital experience, please call the Office of Patient and Family Relations at . If you have received this After Visit Summary in error, please immediately return it in person to the department, or notify the [facility] Privacy Office by calling toll free at between the hours of 8AM and 5PM to arrange for our retrieval of the documents at no cost to you. Content Version: 12.2 ?? [phone] [employer]. Care instructions adapted under license by [facility]. If you have questions about a medical condition or this instruction, always ask your healthcare professional. [employer] disclaims any warranty or liability for your [...] MD - 08/05/2023 10:35 AM EDT [facility] Operative Note Patient Name: Tana Cavazos : [id number] MR#: [id number] Case Date: 08/05/2023 Surgeon: Surgeon(s) and Role: [...] EST Office Visit [place] [address] Hollie Ambriz MD [facility] [place] [address] documented as of this encounter Procedures Procedure Name Priority Date/Time Associated Diagnosis Comments SPECIMEN TO PATHOLOGY Routine 08/05/2023 11:01 AM EDT SURGICAL PATHOLOGY REPORT Routine 08/05/2023 11:00 AM EDT Colonoscopy, Biopsy ([id number]) 08/05/2023 10:27 AM EDT Constipation, unspecified constipation [...] PATHOLOGY/CYTOLO GY ORDERABLES [facility] [place] [address] * Surgical Pathology Report (08/05/2023 11:00 AM EDT) Final Diagnosis [id number] ? Location: 4T; EA11; A The signing pathologist has (i) examined the relevant preparation(s) for the specimen(s) and (ii) rendered or confirmed the diagnosis(es). . ?Surgical Pathology DIAGNOSIS A - Rectum r/o microscopic colitis, biopsy (Multiple): - ??Colonic mucosa within normal limits. CR-PX Electronically signed by: ?Jazmyne GIRALDO PhD, Courtney Verified: ??08/17/2023 16:08 ??Pathologist Performed at: ??-[facility] Dept. of Pathology, [place] [address] Physical Science Aide: Frank Turpin MD, FCAP, ??CLIA Certificate: [id number] SPECIMEN(S) SUBMITTED A - rectum r/o microscopic colitis, biopsy (Multiple) CLINICAL INFORMATION 28-year-old female with chronic constipation SPECIMEN PROCESSING A - Labeled/Fixative : Rectum rule out microscopic colitis, formalin. Quantity/Size: Multiple, averaging 0.3 cm. Tissue Description: Soft, red tissues. Sections/Process ing: Submitted in toto ??in 2 cassettes labeled A1-A2. ??sns 08/17/2023 4:08 PM EDT [facility] GI Biopsy 08/05/2023 11:0 0 AM EDT 08/05/2023 11:00 AM EDT Jamar Hair MD PATHOLOGY/CYTOLO GY ORDERABLES [facility] [place] [address] * COLONOSCOPY (08/05/2023 9:59 AM EDT) COLONOSCOPY [facility] Endoscopy ___ Procedure Date: 08/05/2023 9:59 AM ? Patient Name: Tana Cavazos ? Date of : 1995 ? Age: 28 ? Order #: [id number] ? Instrument Name: [id number] ? ___ Procedure: ? Colonoscopy Indications: ? [...] Active and Recently Administered Medications Care Teams Roto Rooter Operator Relationship Specialty Start Date End Date Lorna Bal APRN [address] [place] [address] PCP - General Family Medicine 05/27/18 documented as of this encounter
--- OUTSIDE RECORDS SUMMARY | 2023-12-29 14:03 | XMS_ITS | Encounter Summary ---
Author Organization [facility] Address [facility] [place] [address] Care Team Providers Care Craft Coordinator Name Role Phone Lorna Bal APRN Primary Care Provider [phone] [phone] Reason for Visit * Reason Comments Medication Refill Encounter Details Date Type Department Care Team (Late st Contact Info) Description 09/10/2023 [place]ill [place] [phone] Hollie Ambriz MD [facility] [place] [address] Social History Tobacco Use Types Packs/Day Years [...] PM EST Office [place] [address] Hollie Ambriz MD [facility] [place] [address] documented as of this encounter Visit Diagnoses Not on filedocumented in this encounter Care Teams Craft Coordinator Relationship Specialty Start Date End Date Lorna Bal APRN [address] [place] [address] PCP - General Family Medicine 05/27/18 documented as of this encounter
--- OUTSIDE RECORDS SUMMARY | 2023-12-29 14:03 | XMS_ITS | Encounter Summary ---
[place] [address] Care Team Providers Care University Archivist Name Role Phone Lorna Bal APRN Primary Care Provider [phone] Reason for Visit * Occupational Therapy (Routine) - Closed Specialty Diagnoses / Procedures Referred By Karlo t Referred To Contact Occupational Therapy Diagnoses Chronic pain of right thumb Lucho Foster MD [facility] DR OR[place] [address] [facility] [place] [address] Referral ID Status Reason Start Date Expiration Date V isits Requested Visits Authorized [id number] Closed Consult Only 09/29/2023 09/28/2024 30 30 Encounter Details Date Type Department Care Team (Latest Contact Info) Description 09/29/2023 10:00 AM EDT Office [place] [address] [place] OT Spastic quadriparesis [...] with demonstration in therapy. 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
--- OUTSIDE RECORDS SUMMARY | 2023-12-29 14:03 | XMS_ITS | Encounter Summary ---
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 Followed up with in [place]. MRI was not possible sec. To hardware. CRP/ESR was trending upwards. NSG referred her to [facility] for surgery. The patient went to [...] liquefied hematoma or abscess. Neurosurgeon recommended continuing ad terminal makeup operator suppressive antibiotics Subjective: Tana is in [place] [...] Tipton MD Infectious Diseases Fellow- [id number] Pager: [phone] 09/23/2023 11:03 AM Plan discussed with Dr. Hollie Ambriz This note was created using Yerdle voice recognition software. * Hollie Ambriz MD [...] PM EST Office Visit [place] [address] Hollie Ambriz MD [facility] [address] documented as of this encounter Procedures Procedure Name Priority Date/Time Associated Diagnosis Comments CRP, ACUTE INFLAMMATION Routine 09/24/2023 11:03 AM EDT Spinal abscess COMPREHENSIVE METABOLIC PANEL Routine 09/24/2023 11:03 AM EDT Spinal abscess documented in this encounter Results * (ABNORMAL) Comprehensive metabolic panel (non-fasting) (09/24/2023 11:03 AM EDT) Glucose 98 65 - 199 mg/dL [facility] Comment:Diabetes: >=200 mg/d L plus symptoms Blood Urea Nitrogen 16 8 - 18 mg/dL [facility] 107 mmol/L [facility] Carbon Dioxide 23 22 - 31 mmol/L [facility] Anion Gap 15 5 - 15 mmol/L [facility] Calcium 10.3 8.5 - 10.5 mg/dL [facility] Protein, Total 8.4(H) 6.1 - 8.0 g/dL [facility] Albumin 4.6 3.2 - 5.2 g/dL [facility] Aspartate Aminotransferase 23 0 - 30 unit/L [facility] Alanine Aminotransferase 49(H) 0 - 30 unit/L [facility] Alkaline Phosphatase 302(H) 35 - 105 unit/L [facility] Bilirubin, Total 0.3 0.2 - 1.3 mg/dL [facility] Est Glomerular Filtration Rate 150 >=60 mL/min/1. 73 m?? [facility] [...] Tipton MD CHEMISTRY ORDERABLES Performing Organization Address City/[facility]/ZIP Co de Phone Number [facility] [place] [address] * (ABNORMAL) CRP, acute inflammation (09/24/2023 11:03 AM EDT) C-Reactive Protein 42.3(H) <=4.9 mg/L [facility] Blood 09/24/2023 11:0 3 AM EDT 09/24/2023 11:10 AM EDT Narrative Resulting Agency Comment Spec In Lab Ronn Tipton MD CHEMISTRY ORDERABLES [facility] [place] [address] documented in this encounter Visit Diagnoses Diagnosis Spinal abscess Acute osteomyelitis, other specified site shelter 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 Encounter for long-term (current) use of antibiotics documented in this encounter Care Teams Fleet Coordinator Relationship Specialty Start Date End Date Lorna Bal APRN [address] [place] [address] PCP - General Family Medicine 05/27/18 documented as of this encounter
--- OUTSIDE RECORDS SUMMARY | 2023-12-29 14:03 | XMS_ITS | Encounter Summary ---
Author Organization [facility] Address [facility] [place] [address] Care Team Providers Care Sample Weaver Name Role Phone Lorna Bal APRN Primary Care Provider +1 [phone] Encounter Details Date Type Department Care Team (Late st Contact Info) Description 10/27/2023 Telephone [place] [phone] Nikolay Toledo MD [facility] [place] [address] Social History Tobacco Use Types Packs/Day Years Used Date Smoking Tobacco: Never Passive Smoke Exposure: Never Smokeless Tobacco: Never Comments:NO SMOKERS IN THE H OME Alcohol Use Standard Drinks/Week Comments No 0 (1 standard drink = 0.6 oz pur e alcohol) [facility] Utilities Answer Date Recorded In [...] time in the past 12 m [facility], were you homeless or living in a assisted (including now)? No 10/29/2023 [facility] Inpatient Questions Answer Date Recorded Does [...] shared plan of obtaining labs locally at [facility] and ideally coordinating a CT L-spine at [facility], followed by potential IR [...] PM EST Office [place] [address] Nikolay Toledo MD [facility] DR [place] [address] Scheduled Orders Name Type Priority Associated Diagnoses [...] site documented in this encounter Care Teams Sample Weaver Relationship Specialty Start Date End Date Lorna Bal APRN [address] [place] [address] PCP - General Family Medicine 05/27/18 documented as of this encounter
--- OUTSIDE RECORDS SUMMARY | 2023-12-29 14:03 | XMS_ITS | Encounter Summary ---
Author Organization [facility] Address [place] [address] Care Team Providers Care Fashion Journalist Name Role Phone Valeriano Lorna Carvalho APRN Primary Care Provider +1 [phone] Encounter Details Date Type Department Care Team (Late st Contact Info) Description 08/05/2023 10:24 AM EDT Anesthesia Event [place] [phone] Christopher Johansen MD [facility] [place] [address] Buster Brooke Anesthesia Record Procedure Summary Procedure [...] 1042; metacarpal vein (top of hand), right; [id number]-[id number] catheter system; 22 gauge; distraction, intradermal injection, tolerated well; LDA not present upon assessment; 10/29/23; 0840 09/26/22 1042 by Ramiro Aden LPN 10/29/23 0840 by Hank Christian RN Incision 09/26/22; 1328; Righ t; gluteal; non-laparascopic puncture; Aspiration site (Gregory, DO); LDA not present upon assessment; 10/29/23 09/26/22 1328 by Nathalie Hernández RN 10/29/23 0000 by Jaye Murry RN PIV 08/05/23; 1015; [id number]-tdh-[id number] catheter system; 22 gauge; great saphenous vein [...] Procedure Summary Date: 08/05/23 Room / Location: [facility] / [facility] Anesthesia Start: 1024 Anesthesia Stop: 110 Procedure: COLONOSCOPY FLEXIBLE, WITH BX (WRVU 3.56) (Trunk) Diagnosis: Constipation, unspecified constipation type (Colonoscopy- Chronic constipation and anemia) Surgeons: Jamar Gastelum MD Responsible Provider: Christopher Johansen MD Anesthesia Type: MAC ASA Status: 3 All Anesthesia Providers: Anesthesiologist: Christopher Johansen MD Student Nurse Cherry Sorter: Buster Brooke Vitals Value Taken Time BP 119/81 08/05/23 1125 Temp Pulse Resp 16 08/05/23 1125 SpO2 99 % 08/05/23 1127 Pain Level 0 08/05/23 1125 Vitals shown include unfiled device data. Patient Location: PACU/[facility] Level of Consciousness: Awake and [...] a 28 y.o. female. Procedure(s): [facility] Patient Active Problem List Diagnosis Date [...] Procedures 06/25/2022 Mich Martino MD [facility] RAD ??? IR ALL DRAINAGE PROCEDURES 07/04/2022 IR All Drainage Procedures 07/04/2022 Mich Martino MD [facility] RAD ??? IR ALL DRAINAGE PROCEDURES 07/24/2022 IR All Drainage Procedures 07/24/2022 Anurag Kumar MD [facility] ??? IR ALL DRAINAGE PROCEDURES 09/26/2022 IR All Drainage Procedures 09/26/2022 Jamaal Jenkins, DO [facility] RAD ??? IR DRAIN CHECK/CHANGE/REMOVE 07/01/2022 IR Drain Check/Change/Remove 07/01/2022 Jamaal Jenkins, DO [facility] RAD ??? IR DRAIN CHECK/CHANGE/REMOVE 08/11/2022 IR Drain Check/Change/Remove 08/11/2022 Piter Self MD [facility] RAD ??? IR DRAIN CHECK/CHANGE/REMOVE 08/25/2022 IR Drain Check/Change/Remove 08/25/2022 Jamaal Jenkins, DO [facility] RAD ??? IR DRAIN CHECK/CHANGE/REMOVE 09/10/2022 IR Drain Check/Change/Remove 09/10/2022 Mich Martino MD [facility] RAD ??? PRO APPLY OF HIP CASTS, TWO LEGS 08/15/2010 CAST APPLICATION, HIP SPICA, BOTH LEGS performed by BARRERA OLIVER at [facility] OR ? ? PRO I&D, POST SPINE, LUMB/SACR/LUMBOSAC N/A 05/20/2014 @I & D, OPEN, DEEP ABSCESS, LUMBAR, SACRAL, LUMBOSACRAL performed by Freddy Isbell MD at [facility] OR ? ? PRO I&D, POST SPINE, LUMB/SACR/LUMBOSAC N/A 05/26/2014 @I & D, OPEN, DEEP ABSCESS, LUMBAR, SACRAL, LUMBOSACRAL performed by Freddy Isbell MD at [facility] OR ??? PRO IMPACT TOOTH REMOV COMP BONY N/A 06/14/2018 SURGICAL EXTRACTIONS, REMOVAL OF IMPACTED TOOTH, COMPLETELY BONY (WRVU 1.93) performed by Keith Cotton MD at [facility] OSC ??? PRO OSTEOTOMY FEMUR SHAFT/SUPRACONDY 08/15/2010 ??OSTEOTOMY, FEMUR SHAFT OR SUPRACONDYLAR W/O FIXATION performed by BARRERA OLIVER at [facility] MAIN OR ??? PRO RECONSTRUC HIP SOCKET, RESEC FEM HEAD 08/15/2010 ??ACETABULOPLASTY (GIRDLESTONE), RESECTION FEMORAL HEAD, BILATERAL performed by BARRERA OLIVRE [facility] MAIN OR ??? PRO REMOVAL DEEP IMPLANT 08/15/2010 REMOVAL IMPLANT, DEEP, BRUNO performed by BARRERA OLIVER at [facility] MAIN OR ??? PRO REMOVAL ERUPTED TOOTH WITH ELEVATION OF MUCOPERIOSTEAL FLAP N/A 06/14/2018 SURGICAL EXTRACTIONS REQUIRING ELEVATION OF MUCOPERIOSTEAL FLAP AND REMOVAL OF BONE OR SECTION OF TOOTH (WRVU 1.09) performed by Keith Cotton MD at [facility] ??? PRO REMOVE INFUSN DEVICE/PUMP N/A 05/11/2014 REMOVAL OF SPINE INFUSION PUMP performed by Jamaal Samuel MD at [facility] MAIN OR ??? PRO REMOVE SPINAL CANAL CATHETER N/A 05/11/2014 REMOVAL OF INTRATHECAL OR EPIDURAL CATHETER performed by Jamaal Samuel MD at [facility] MAIN OR ??? PRO REPR, DURAL/CSF LEAK, NOT REQ LAMINECTOMY N/A 05/20/2014 @REPAIR DURAL\CSF LEAK,NOT REQUIRING LAMINECTOMY performed by Freddy Isbell MD at [facility] MAIN OR Social History Tobacco Use ??? Smoking status: Never ??? Smokeless tobacco: Never ??? Tobacco comments: NO SMOKERS IN THE HOME Substance Use Topics ??? Alcohol use: No Social History Substance and Sexual Activity Drug Use No Allergies Allergen Reactions ??? Fluoxetine Other (See Comments) HIVES, HEART RACES ??? Tegaderm [Transparent Dressings] Itching and Dermatitis Please use [id number] ??? Cyclobenzaprine Other Reaction(s): Not available ??? [...] risks discussed with patient. Plan discussed with [address] POLICE OFFICER. Anesthesia Screening documented in this encounter Plan of Treatment Upcoming Encounters Date Type Department Care Team (Late st Contact Info) Description 06/02/2024 12:30 PM EST Office Visit [place] [phone] Hollie Ambriz MD [facility] [place] [address] documented as of this encounter Visit Diagnoses [...] mg documented in this encounter Care Teams Fashion Journalist Relationship Specialty Start Date End Date Lorna Bal, [place] [address] [place] [address] PCP - General Family Medicine 05/27/18 documented as of this encounter
--- OUTSIDE RECORDS SUMMARY | 2023-12-29 14:03 | XMS_ITS | Encounter Summary ---
[place] [address] Care Team Providers Care Vacuum Plastic Forming Machine Operator Name Role Phone Lorna Bal APRN Primary Care Provider +1 -[phone] Encounter Details Date Type Department Care Team (Latest Contact Info) Description 09/24/2023 Travel Social History Tobacco Use Types Packs/Day Years Used Date Smoking Tobacco: Never Smokeless Tobacco: Never Comments:NO SMOKERS IN THE H OME Alcohol Use Standard Drinks/Week Comments No 0 (1 standard drink = 0.6 oz pur e alcohol) [facility] Inpatient Questions Answer Date Recorded Does Anyone [...] EST Office Visit [place] [phone] Hollie Ambriz MD [facility] [place] [address] documented as of this encounter Visit Diagnoses Not on filedocumented in this encounter Care Teams Vacuum Plastic Forming Machine Operator Relationship Specialty Start Date End Date Lorna Bal APRN [address] [place] [address] PCP - General Family Medicine 05/27/18 documented as of this encounter
--- OUTSIDE RECORDS SUMMARY | 2023-12-29 14:03 | XMS_ITS | Encounter Summary ---
Author Organization [facility] Address [facility] [place] [address] Care Team Providers Care Web Site Designer Name Role Phone Lorna Bal APRN Primary Care Provider +1 -[phone] Encounter Details Date Type Department Care Team [...] In the past 12 months has e [employer], gas, oil, or water [employer] threatened to shut off services in your [...] were you homeless or living in a long-term (including now)? No 10/29/2023 [facility] Inpatient Questions [...] Office [place] [address] Hollie Ambriz MD [facility] [place] [address] documented as of this encounter Visit Diagnoses Not on filedocumented in this encounter Care Teams Web Site Designer Relationship Specialty Start Date End Date Lorna Bal APRN [address] [place] [address] PCP - General Family Medicine 05/27/18 documented as of this encounter
--- OUTSIDE RECORDS SUMMARY | 2023-12-29 14:03 | XMS_ITS | Encounter Summary ---
Author Organization [facility] [address] Care Team Providers Care Floor Refinisher Name Role Phone Lorna aBl APRN Primary Care Provider +1 -[phone] Encounter Details Date Type Department Care Team (Late st Contact Info) Description 06/17/2023 Telephone [place] [phone] Tobi Luna Social History Tobacco Use Types [...] - 06/17/2023 10:02 AM EST Tana Cavazos [id number] Diagnosis/Indication: Chronic constipation and anemia Please review [...] your procedure. Who will likely be your ambulette driver for the procedure? *Please Verify the [...] PM EST Office [place] [address] Hollie Ambriz MD [facility] DR [place] [address] documented as of this encounter Visit Diagnoses Not on filedocumented in this encounter Care Teams Floor Refinisher Relationship Specialty Start Date End Date Lorna Bal APRN [address] [place] [address] PCP - General Family Medicine 05/27/18 documented as of this encounter
--- OUTSIDE RECORDS SUMMARY | 2023-12-29 14:03 | XMS_ITS | Encounter Summary ---
Author Organization [facility] Address [place] [address] Care Team Providers Care Mail Carrier And Clerk Name Role Phone Lorna Bal APRN Primary Care Provider +1 -[phone] Encounter Details Date Type Department Care Team (Late st Contact Info) Description 10/28/2023 Telephone [place] [address] Neva Thorpe, RN Social History Tobacco Use Types Packs/Day Years Used Date Smoking Tobacco: Never Passive Smoke Exposure: Never Smokeless Tobacco: Never Comments:NO SMOKERS IN THE H OME Alcohol Use Standard Drinks/Week Comments No 0 (1 standard drink = 0.6 oz pur e alcohol) [facility] Utilities Answer Date Recorded In the past 12 months has e [employer], gas, oil, or water [employer] threatened to shut off services in your [...] time in the past [address] [facility], were you homeless or living in a [...] PM EST Office [place] [address] Hollie Ambriz MD [facility] [place] [address] documented as of this encounter Visit Diagnoses Not on filedocumented in this encounter Care Teams Mail Carrier And Clerk Relationship Specialty Start Date End Date Lorna Bal APRN [address] [place] [address] PCP - General Family Medicine 05/27/18 documented as of this encounter
--- OUTSIDE RECORDS SUMMARY | 2023-12-29 14:03 | XMS_ITS | Encounter Summary ---
Author Organization [facility] [place] [address] Care Team Providers Care Health Information Technologist Name Role Phone Lorna Bal APRN Primary Care Provider +1 -[phone] Encounter Details Date Type Department Care Team (Latest Contact Info) Description 08/24/2023 9:00 AM EDT TH Visit (TeleHealth) [place] [phone] Samantha Crystal APRN [facility] [place] [address] Constipation, unspecified constipation type Social History Tobacco [...] this encounter Progress Notes * Samantha Crystal, MASTER SCHEDULER - 08/24/2023 9:00 AM EDT Gastroenterology Follow Up Telehealth Note Ms. Tana Cavazos is a 28 y.o. female who presents to the section of Gastroenterology for follow upfor constipation. Interval Update: -Here today with Fernanda her applier. -Since her colonoscopy her bowels have been [...] discomfort. She is being followed in [place] after hospital stay for a spinal infection. [...] All Drainage Procedures 06/25/2022 Mich Martino MD [facility] RAD IR ALL DRAINAGE PROCEDURES 07/04/2022 IR All Drainage Procedures 07/04/2022 Mich Martino MD [facility] RAD IR ALL DRAINAGE PROCEDURES 07/24/2022 IR All Drainage Procedures 07/24/2022 Anurag Kumar MD [facility] RAD IR ALL DRAINAGE PROCEDURES 09/26/2022 IR All Drainage Procedures 09/26/2022 Jamaal Jenkins, DO [facility] RAD IR DRAIN CHECK/CHANGE/REMOVE 07/01/2022 IR Drain Check/Change/Remove 07/01/2022 Jamaal Jenkins, DO [facility] RAD IR DRAIN CHECK/CHANGE/REMOVE 08/11/2022 IR Drain Check/Change/Remove 08/11/2022 Piter Self MD [facility] INTER[facility] RAD IR DRAIN CHECK/CHANGE/REMOVE 08/25/2022 IR Drain Check/Change/Remove 08/25/2022 Jamaal Jenkins, DO [facility] RAD IR DRAIN CHECK/CHANGE/REMOVE 09/10/2022 IR Drain Check/Change/Remove 09/10/2022 Mich Martino MD [facility] RAD PRO APPLY OF HIP CASTS, TWO LEGS 08/15/2010 CAST APPLICATION, HIP SPICA, BOTH LEGS performed by BARRERA OLIVER at [facility] MAIN OR PRO COLONOSCOPY, BIOPSY N/A 08/05/2023 COLONOSCOPY FLEXIBLE, WITH BX (WRVU 3.56) performed by Jamar Gastelum MD at [facility] ENDOSCOPY PRO I&D, POST SPINE, LUMB/SACR/LUMBOSAC N/A 05/20/2014 @I & D, OPEN, DEEP ABSCESS, LUMBAR, SACRAL, LUMBOSACRAL performed by Freddy Isbell MD at [facility] MAIN OR PRO I&D, POST SPINE, LUMB/SACR/LUMBOSAC N/A 05/26/2014 @I & D, OPEN, DEEP ABSCESS, LUMBAR, SACRAL, LUMBOSACRAL performed by Freddy Isbell MD at [facility] MAIN OR PRO IMPACT TOOTH REMOV COMP BONY N/A 06/14/2018 SURGICAL EXTRACTIONS, REMOVAL OF IMPACTED TOOTH, COMPLETELY BONY (WRVU 1.93) performed by Keith Cotton MD at [facility] OSC PRO OSTEOTOMY FEMUR SHAFT/SUPRACONDY 08/15/2010 ??OSTEOTOMY, FEMUR SHAFT OR SUPRACONDYLAR W/O FIXATION performed by BARRERA OLIVER at [facility] OR PRO RECONSTRUC HIP SOCKET, RESEC FEM HEAD 08/15/2010 ??ACETABULOPLASTY (GIRDLESTONE), RESECTION FEMORAL HEAD, BILATERAL performed by BARRERA OLIVER [facility] MAIN OR PRO REMOVAL DEEP IMPLANT 08/15/2010 REMOVAL IMPLANT, DEEP, BRUNO performed by BARRERA OLIVER at [facility] MAIN OR PRO REMOVAL ERUPTED TOOTH WITH ELEVATION OF MUCOPERIOSTEAL FLAP N/A 06/14/2018 SURGICAL EXTRACTIONS REQUIRING ELEVATION OF MUCOPERIOSTEAL FLAP AND REMOVAL OF BONE OR SECTION OF TOOTH (WRVU 1.09) performed by Keith Cotton MD at [facility] OSC PRO REMOVE INFUSN DEVICE/PUMP N/A 05/11/2014 REMOVAL OF SPINE INFUSION PUMP performed by Jamaal Samuel MD at [facility] MAIN OR PRO REMOVE SPINAL CANAL CATHETER N/A 05/11/2014 REMOVAL OF INTRATHECAL OR EPIDURAL CATHETER performed by Jamaal Samuel MD at [facility] MAIN OR PRO REPR, DURAL/CSF LEAK, NOT REQ LAMINECTOMY N/A 05/20/2014 @REPAIR DURAL\CSF LEAK,NOT REQUIRING LAMINECTOMY performed by Freddy Isbell MD at [facility] MAIN OR MEDICATIONS: Current Outpatient [...] [Transparent Dressings] Itching and Dermatitis Please use [id number] Cyclobenzaprine Other Reaction(s): Not available Doxycycline Other [...] to go to [facility] I will need to request these results [...] office visit: 5 minutes Samantha Crystal, MSN, MASTER SCHEDULER, SOLE CUTTER-C Section of Gastroenterology [place] [address] documented in this encounter Plan of Treatment Upcoming Encounters Date Type Department Care Team (Late st Contact Info) Description 06/02/2024 12:30 PM EST Office [place] [address] Hollie Ambriz MD [facility] [place] [address] documented as of this encounter Visit Diagnoses Diagnosis Constipation, unspecified constipation type documented in this encounter Care Teams Health Information Technologist Relationship Specialty Start Date End Date Lorna Bal APRN [address] [place] [address] PCP - General Family Medicine 05/27/18 documented as of this encounter
--- OUTSIDE RECORDS SUMMARY | 2023-12-29 14:03 | XMS_ITS | Encounter Summary ---
Author Organization [facility] [place] [address] Care Team Providers Care Chair Trimmer Name Role Phone Lorna Bal APRN Primary Care Provider [phone] [phone] Encounter Details Date Type Department Care Team (Late st Contact Info) Description 10/27/2023 Telephone [place] [phone] Halima García Social History Tobacco Use Types [...] Halima García - 10/27/2023 10:23 AM EDT elderly caregiver (josy) called stating the patient's infection has returned in her back. They are requesting an order for a aspiration to be put in. documented in this encounter Plan of Treatment Upcoming Encounters Date Type Department Care Team (Late st Contact Info) Description 06/02/2024 12:30 PM EST Office [place] [address] Hollie Ambriz MD [facility] [place] [address] documented as of this encounter Visit Diagnoses Not on filedocumented in this encounter Care Teams Chair Trimmer Relationship Specialty Start Date End Date Lorna Bal APRN [address] [place] [address] PCP - General Family Medicine 05/27/18 documented as of this encounter
--- OUTSIDE RECORDS SUMMARY | 2023-12-29 14:03 | XMS_ITS | Encounter Summary ---
[facility] Organization [facility] [place] [address] Care Team Providers Care Coin Wrapping Machine Operator Name Role Phone Lorna Bal APRN Primary Care Provider +1 -[phone] Encounter Details Date Type Department Care Team (Late st Contact Info) Description 06/12/2023 Telephone [place] [phone] Tobi Luna Social History Tobacco Use Types [...] PM EST Office [place] [address] [address]ie Ambriz MD [facility] [place] [address] documented as of this encounter Visit Diagnoses Not on filedocumented in this encounter Care Teams Coin Wrapping Machine Operator Relationship Specialty Start Date End Date Lorna Bal APRN [address] [place] [address] PCP - General Family Medicine 05/27/18 documented as of this encounter
--- OUTSIDE RECORDS SUMMARY | 2023-12-29 14:03 | XMS_ITS | Encounter Summary ---
Author Organization [facility] Address [facility] [place] [address] Care Team Providers Care Lorry Weigher Name Role Phone Lorna Bal APRN Primary Care Provider +1 -[phone] Encounter Details Date Type Department Care Team (Latest Contact Info) Description 08/05/2023 9:03 AM EDT - 08/05/2023 11:39 AM EDT Hospital Encounter [place] [address] Jamar Gastelum MD [facility] [place] [address] Discharge Disposition: Home Social History Tobacco Use [...] occurs, please contact your Doctor. Please call [phone] before 8pm Mon-Fri with problems, questions or concerns. If you call after 8pm or on weekends, call the Hospital at [phone] and ask to speak to the Waterside Worker title i paraprofessional and the hydroelectric station operator will contact that person for you. When should you call for help? Call [phone] anytime you think you may need emergency [...] Where can you learn more? [facility] View your After Visit Summary and more online at [email or web address] If you would like to provide [...] cost to you. Content Version: 12.2 ?? 8899-5010 [employer]. Care instructions adapted under license by [facility]. If you have questions about a medical condition or this instruction, always ask your healthcare professional. [employer] disclaims any warranty or liability for your [...] Gastelum MD - 08/05/2023 10:35 AM EDT [facility] [place]ative Note Patient Name: Tana Cavazos : [id number] MR#: [id number] Case Date: 08/05/2023 Surgeon: Surgeon(s) and Role: [...] PM EST Office [place] [address] Hollie Ambriz MD [facility] [place] [address] documented as of this encounter Procedures Procedure Name Priority Date/Time Associated Diagnosis Comments SPECIMEN TO PATHOLOGY Routine 08/05/2023 11:01 AM EDT SURGICAL PATHOLOGY REPORT Routine 08/05/2023 11:00 AM EDT Colonoscopy, Biopsy ([id number]) 08/05/2023 10:27 AM EDT Constipation, unspecified constipation type COLONOSCOPY Routine 08/05/2023 9:59 AM EDT documented in this encounter Results * Specimen to Pathology (08/05/2023 11:01 AM EDT) AP Specimen 08/05/2023 11:0 1 AM EDT 08/05/2023 11:01 AM EDT Narrative [facility] - 08/05/2023 11:01 AM EDT Specimen requisition ordered. ??Separate Pathology report to follow Jamar Hair MD PATHOLOGY/CYTOLO GY ORDERABLES [facility] [place] [address] * Surgical Pathology Report (08/05/2023 11:00 AM EDT) Final Diagnosis [id number] ? Location: 4T; EA11; A The signing pathologist has (i) examined the relevant preparation(s) for the specimen(s) and (ii) rendered or confirmed the diagnosis(es). . ?Surgical Pathology DIAGNOSIS A - Rectum r/o microscopic colitis, biopsy (Multiple): - ??Colonic mucosa within normal limits. CR-PX Electronically signed by: ?Jazmyne GIRALDO PhD, Courtney Verified: ??08/17/2023 16:08 ??Pathologist Performed at: ??-[facility] Dept. [place]ology, [place] [address] Regulation Supervisor: Frank Turpin MD, FCAP, ??CLIA Certificate: [id number] SPECIMEN(S) SUBMITTED A - rectum r/o microscopic colitis, biopsy (Multiple) CLINICAL INFORMATION 28-year-old female with chronic constipation SPECIMEN PROCESSING A - Labeled/Fixative : Rectum rule out microscopic colitis, formalin. Quantity/Size: Multiple, averaging 0.3 cm. Tissue Description: Soft, red tissues. Sections/Process ing: Submitted in toto ??in 2 cassettes labeled A1-A2. ??sns 08/17/2023 4:08 PM EDT [facility] GI Biopsy 08/05/2023 11:0 0 AM EDT 08/05/2023 11:00 AM EDT Jamar Hair MD PATHOLOGY/CYTOLO GY ORDERABLES [facility] [place] [address] * COLONOSCOPY (08/05/2023 9:59 AM EDT) COLONOSCOPY [facility] Endoscopy ___ Procedure Date: 08/05/2023 9:59 AM ? Patient Name: Tana Cavazos ? Date of : 1995 ? Age: 28 ? Order #: [id number] ? Instrument Name: [id number]- [id number] ? ___ Procedure: ? Colonoscopy Indications: ? [...] Active and Recently Administered Medications Care Teams Lorry Weigher Relationship Specialty Start Date End Date Lorna Bal APRN [address] [place] [address] PCP - General Family Medicine 05/27/18 documented as of this encounter
--- OUTSIDE RECORDS SUMMARY | 2023-12-29 14:03 | XMS_ITS | Encounter Summary ---
Author Organization [facility] Address [facility] [place] [address] Care Team Providers Care Group Exercise Class Instructor Name Role Phone Lorna Bal APRN Primary Care Provider +1 -[phone] Encounter Details Date Type Department Care Team (Late st Contact Info) Description 10/28/2023 Telephone [place] [address] Neva hTorpe, RN Social History Tobacco Use Types Packs/Day Years Used Date Smoking Tobacco: Never Passive Smoke Exposure: Never Smokeless Tobacco: Never Comments:NO SMOKERS IN THE H OME Alcohol Use Standard Drinks/Week Comments No 0 (1 standard drink = 0.6 oz pur e alcohol) [facility] Utilities Answer Date Recorded In the past 12 months has e [employer], gas, oil, or water [employer] threatened to shut off services in your [...] No 10/29/2023 Housing Stability Vital Sign Answer Erci e Recorded In the last 12 months, was t here a time when you were not able to pay the mortgage or rent on time? No 10/29/2023 In the past 12 months, how m any times have you moved where you were living? 0 10/29/2023 At any time in the past 12 m [facility], were you homeless or [...] back ot to Fannie: Labs drawn at [facility] today-waiting for results Area still on [...] about Fannie being the contact on the [facility] portal. 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 Plan: Fannie will call back once she has the lab results. Will call to schedule CT Scan. Fannie understands that the department is closed tomorrow for the holiday. This RN explained how to reach the provider conveyor maintenance mechanic if necessary. Will review with Dr Hollie Ambriz 10/28/2023 1634 [facility] faxing labs over. Fannie states she is bringing Tana into the ER here at to be evaluated. Dr Ambriz updated documented in this encounter Plan of Treatment Upcoming Encounters Date Type Department Care Team (Late st Contact Info) Description 06/02/2024 12:30 PM EST Office [place] [address] Hollie Ambriz MD [facility] [place] [address] documented as of this encounter Visit Diagnoses Not on filedocumented in this encounter Care Teams Group Exercise Class Instructor Relationship Specialty Start Date End Date Lorna Bal APRN [address] [place] [address] PCP - General Family Medicine 05/27/18 documented as of this encounter
--- OUTSIDE RECORDS SUMMARY | 2023-12-29 14:04 | XMS_ITS | Encounter Summary ---
[place] [address] Care Team Providers Care Insurance Office Manager Name Role Phone Lorna Bal APRN Primary Care Provider +1 -[phone] Encounter Details Date Type Department Care Team [...] PM EST Office [place] [phone] Hollie Ambriz MD [facility] [place] [address] documented as of this encounter Visit Diagnoses Not on filedocumented in this encounter Care Teams Insurance Office Manager Relationship Specialty Start Date End Date Lorna Bal APRN [address] [place] [address] PCP - General Family Medicine 05/27/18 documented as of this encounter
--- OUTSIDE RECORDS SUMMARY | 2023-12-29 14:04 | XMS_ITS | Encounter Summary ---
Author Organization [facility] [place] [address] Care Team Providers Care Elementary Tutor Name Role Phone Lorna Bal APRN Primary Care Provider +1 -[phone] Encounter Details Date Type Department Care Team (Late st Contact Info) Description 01/29/2023 1:00 PM EDT Office Visit [place] [address] Reji Macdonald MD [facility] [place] [address] Spinal abscess Social History Tobacco Use Types [...] her postoperative care for planned operation and [place]. She is here with her caregivers but her mother is her legal guardian. She has been seen at [facility] been seen by the orthopedic team and infectious diseases for extended periods of time. It is unclear as to what the long-term plan was for management of thisbut eventually apparently she made it to [place] after referral by infectious disease and then subsequently was referred to [place]. At that point time she was seen [...] All Drainage Procedures 06/25/2022 Mich Martino MD [facility] INTERVENTIONL RAD IR ALL DRAINAGE PROCEDURES 07/04/2022 IR All Drainage Procedures 07/04/2022 Mich Martino MD [facility] INTERVENTIONL RAD IR ALL DRAINAGE PROCEDURES 07/24/2022 IR All Drainage Procedures 07/24/2022 Anurag Kumar MD [facility] INTERVENTIONL RAD IR ALL DRAINAGE PROCEDURES 09/26/2022 IR All Drainage Procedures 09/26/2022 Jamaal Jenkins, DO [facility] INTERVENTIONL RAD IR DRAIN CHECK/CHANGE/REMOVE 07/01/2022 IR Drain Check/Change/Remove 07/01/2022 Jamaal Jenkins, DO [facility] INTERVENTIONL RAD IR DRAIN CHECK/CHANGE/REMOVE 08/11/2022 IR Drain Check/Change/Remove 08/11/2022 Piter Self MD [facility] INTERVENTIONL RAD IR DRAIN CHECK/CHANGE/REMOVE 08/25/2022 IR Drain Check/Change/Remove 08/25/2022 Jamaal Jenkins, DO [facility] INTERVENTIONL RAD IR DRAIN CHECK/CHANGE/REMOVE 09/10/2022 IR Drain Check/Change/Remove 09/10/2022 Mich Martino MD [facility] INTERVENTIONL RAD PRO APPLY OF HIP CASTS, TWO LEGS 08/15/2010 CAST APPLICATION, HIP SPICA, BOTH LEGS performed by BARRERA OLIVER at [facility] MAIN OR PRO I&D, POST SPINE, LUMB/SACR/LUMBOSAC N/A 05/20/2014 @I & D, OPEN, DEEP ABSCESS, LUMBAR, SACRAL, LUMBOSACRAL performed by Freddy Isbell MD at [facility] MAIN OR PRO I&D, POST SPINE, LUMB/SACR/LUMBOSAC N/A 05/26/2014 @I & D, OPEN, DEEP ABSCESS, LUMBAR, SACRAL, LUMBOSACRAL performed by Freddy Isbell MD at [facility] MAIN OR PRO IMPACT TOOTH REMOV COMP BONY N/A 06/14/2018 SURGICAL EXTRACTIONS, REMOVAL OF IMPACTED TOOTH, COMPLETELY BONY (WRVU 1.93) performed by Keith Cotton MD at [facility] OSC PRO OSTEOTOMY FEMUR SHAFT/SUPRACONDY 08/15/2010 ??OSTEOTOMY, FEMUR SHAFT OR SUPRACONDYLAR W/O FIXATION performed by BARRERA OLIVER at [facility] MAIN OR PRO RECONSTRUC HIP SOCKET, RESEC FEM HEAD 08/15/2010 ??ACETABULOPLASTY (GIRDLESTONE), RESECTION FEMORAL HEAD, BILATERAL performed by BARRERA OLIVER [facility] MAIN OR PRO REMOVAL DEEP IMPLANT 08/15/2010 REMOVAL IMPLANT, DEEP, BRUNO performed by BARRERA OLIVER at [facility] MAIN OR PRO REMOVAL ERUPTED TOOTH WITH ELEVATION OF MUCOPERIOSTEAL FLAP N/A 06/14/2018 SURGICAL EXTRACTIONS REQUIRING ELEVATION OF MUCOPERIOSTEAL FLAP AND REMOVAL OF BONE OR SECTION OF TOOTH (WRVU 1.09) performed by Keith Cotton MD at [facility] OSC PRO REMOVE INFUSN DEVICE/PUMP N/A 05/11/2014 REMOVAL OF SPINE INFUSION PUMP performed by Jamaal Samuel MD at [facility] MAIN OR PRO REMOVE SPINAL CANAL CATHETER N/A 05/11/2014 REMOVAL OF INTRATHECAL OR EPIDURAL CATHETER performed by Jamaal Samuel MD at [facility] MAIN OR PRO REPR, DURAL/CSF LEAK, NOT REQ LAMINECTOMY N/A 05/20/2014 @REPAIR DURAL\CSF LEAK,NOT REQUIRING LAMINECTOMY performed by Freddy Isbell MD at [facility] MAIN OR Social History Socioeconomic [...] [Transparent Dressings] Itching and Dermatitis Please use [id number] Cyclobenzaprine Other Reaction(s): Not available Penicillins Current [...] PM EST Office [place] [address] Hollie Ambriz MD [facility] DR [place] [address] documented as of this encounter Visit Diagnoses Diagnosis Spinal abscess Acute osteomyelitis, other specified site documented in this encounter Care Teams Elementary Tutor Relationship Specialty Start Date End Date Lorna Bal APRN [address] [place] [address] PCP - General Family Medicine 05/27/18 documented as of this encounter
--- OUTSIDE RECORDS SUMMARY | 2023-12-29 14:04 | XMS_ITS | Encounter Summary ---
Author Organization [place] [address] Care Team Providers Care Roll Threader Operator Name Role Phone Lorna Bal APRN Primary Care Provider +1 -[phone] Encounter Details Date Type Department Care Team (Latest Contact Info) Description 03/27/2023 2:54 PM EST - 03/27/2023 11:59 PM EST Hospital [place] [address] [place] [address] Spinal abscess Discharge Disposition: Home Social History Tobacco Use Types Packs/Day Years Used Date Smoking Tobacco: Never Smokeless Tobacco: Never Comments:NO SMOKERS IN THE H OME Alcohol Use Standard Drinks/Week Comments No 0 (1 standard drink = 0.6 oz pur e alcohol) [facility] Inpatient Questions Answer Date Recorded [...] PM EST Office [place] [address] Hollie Ambriz MD [facility] [address] [place] [address] documented as of this encounter Procedures Procedure [...] PM Electronically signed by: Curt Dozier MD, [facility] ([phone]), at 03/27/2023 3:31 PM Thank you for letting us participate in the care of this patient. If you are a health care provider and have any questions regarding this report, please contact the number above. For patients who have questions, please contact the health health care technician that requested your imaging first. ? Curt Dozier, Staff Physician Electronically Signed Final Report ?? 03/27/2023 03:36 pm Narrative 03/27/2023 3:37 PM EST Abdominal ? (Signed Final 03/27/2023 03:36 pm) PATIENT INFO: ID #: ? [id number] ?: ??[birth year] (27 yrs)(F) Name: ? TANA SHELTON ?Visit Date: 03/27/2023 03:21 pm PERFORMED BY: Attending: ?Jacoby GONZALES MD, Curt Langston Performed By: ? Shelby Gardner RDMS Referred By: ?GABO BANDA Location: ? [place] [facility] Protocol - Abdominal ?[id number] Limited Survey Single Organ or Quadrant - [id number] INDICATIONS: Transaminitis ------ LIVER: ------ Right Lobe [...] 03/27/2023 03:36 pm) PATIENT INFO: ID #: [id number] : [id number] (27 yrs)(F) Name: TANA SHELTON Visit Date: 03/27/2023 03:21 pm PERFORMED BY: Attending: Jacoby GONZALES MD, Arthur L. Performed By: Shelby Gardner RDMS Referred By: GABO BANDA Location: [place] SERVICE[facility]S) [facility] - Hep[facility] Protocol - Abdominal [id number] Limited Survey Single Organ or Quadrant - [id number] INDICATIONS: Transaminitis ------ LIVER: ------ Right Lobe [...] who have questions, please contact the health health care technician that requested your imaging first. Curt Dozier, Staff Physician Electronically Signed Final Report 03/27/2023 03:36 pm Gabo Banda MD [facility] GEN ORDERABL ES documented in this encounter Visit Diagnoses Diagnosis Spinal abscess Acute osteomyelitis, other specified site documented in this encounter Care Teams Roll Threader Operator Relationship Specialty Start Date End Date Lorna Bal APRN [address] [place] [address] PCP - General Family Medicine 05/27/18 documented as of this encounter
--- OUTSIDE RECORDS SUMMARY | 2023-12-29 14:04 | XMS_ITS | Encounter Summary ---
Author Organization [facility] [place] [address] Care Team Providers Care Sex Crimes Detective Name Role Phone Lorna Bal APRN Primary Care Provider +1 -[phone] Encounter Details Date Type Department Care Team (Late st Contact Info) Description 03/30/2023 Telephone [place] [address] Halima García Social History Tobacco Use Types [...] 8:44 AM EST Erika - pharmacist CB: [phone] [facility] - [place], [place] - [address] [facility] [facility] [address]. Erika from [facility] called Dr. Tipton isn't setup with [place] medicaid so the script for bactrim won't go through. The pharmacy is requesting a new script from the attending. Thanks Halima documented in this encounter Plan of Treatment Upcoming Encounters Date Type Department Care Team (Late st Contact Info) Description 06/02/2024 12:30 PM EST Office [place] [address] Hollie Ambriz MD [facility] [place] [address] documented as of this encounter Visit Diagnoses Not on filedocumented in this encounter Care Teams Sex Crimes Detective Relationship Specialty Start Date End Date Lorna Bal APRN [address] [place] [address] PCP - General Family Medicine 05/27/18 documented as of this encounter
--- OUTSIDE RECORDS SUMMARY | 2023-12-29 14:04 | XMS_ITS | Encounter Summary ---
Author Organization [facility] Address [facility] [place] [address] Care Team Providers Care Diet Attendant Name Role Phone Lorna Bal APRN Primary Care Provider +1 -[phone] Encounter Details Date Type Department Care Team (Late st Contact Info) Description 04/29/2023 Notes [place] [address] George Tipton MD [facility] [place] [address] Social History Tobacco Use Types Packs/Day Years [...] from 04/[address] Augustin(Neurosurgeon, [facility]) and talked to bio medical technician. According to her the surgeon reviewed the [...] PM EST Office [place] [address] Hollie Ambriz MD [facility] [place] [address] documented as of this encounter Visit Diagnoses Not on filedocumented in this encounter Care Teams Diet Attendant Relationship Specialty Start Date End Date Lorna Bal APRN [address] [place] [address] PCP - General Family Medicine 05/27/18 documented as of this encounter
--- OUTSIDE RECORDS SUMMARY | 2023-12-29 14:04 | XMS_ITS | Encounter Summary ---
Author Organization [facility] [place] [address] Care Team Providers Care Unit Secy Name Role Phone Lorna Bal APRN Primary Care Provider +1 -[phone] Encounter Details Date Type Department Care Team (Late st Contact Info) Description 09/26/2022 Telephone [place] [address] Valentina Stanton Social History Tobacco Use Types [...] caregiver Fernanda once we know at number [phone]. This was okay per pt Mom. documented in this encounter Plan of Treatment Upcoming Encounters Date Type Department Care Team (Late st Contact Info) Description 06/02/2024 12:30 PM EST Office [place] [address] Hollie Ambriz MD [facility] [place] [address] documented as of this encounter Visit Diagnoses Not on filedocumented in this encounter Care Teams Unit Secy Relationship Specialty Start Date End Date Lorna Bal APRN [address] [place] [address] PCP - General Family Medicine 05/27/18 documented as of this encounter
--- OUTSIDE RECORDS SUMMARY | 2023-12-29 14:04 | XMS_ITS | Encounter Summary ---
Author Organization [facility] Address [facility] [place] [address] Care Team Providers Care Assistant City Attorney Name Role Phone Lorna Bal APRN Primary Care Provider [phone] [phone] Reason for Visit * Consultation (Urgent) - Closed Specialty Diagnoses / Procedures Referred By Contmonica t Referred To Contact Infectious Diseases Diagnoses Osteomyelitis, unspecified site, unspecified type Spinal cord abscess Lorna Bal APRN [address] [place] [address] [facility] Infectious Dis [address] [place] [phone] Referral ID Status Reason Start Date Expiration Date V isits Requested Visits Authorized [id number] Closed Consult, Test & Treat PCP Updated and/or Approved 12/23/2022 12/23/2023 6 6 Encounter Details Date Type Department Care Team (Late st Contact Info) Description 01/29/2023 9:30 AM EDT Office [place] [address] George Tipton MD [facility] [place] [address] 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 Followed up with in [place]. MRI was not possible sec. To hardware. CRP/ESR was trending upwards. NSG referred her to [facility] for surgery and patient is scheduled for a procedure on 02/11/23. Patient presents to ID clinic to reestablish care in anticipation that she will need antibiotics after her surgery since she will have new hardware in setting of chronic infection. Patient is accompanied by 2 caregivers. According to the caregivers patient lives in a house in [place] with another roommate. They have been taking [...] All Drainage Procedures 06/25/2022 Mich Martino MD [facility] INTERVENTIONL RAD IR ALL DRAINAGE PROCEDURES 07/04/2022 IR All Drainage Procedures 07/04/2022 Mich Martino MD [facility] RAD IR ALL DRAINAGE PROCEDURES 07/24/2022 IR All Drainage Procedures 07/24/2022 Anurag Kumar MD [facility] RAD IR ALL DRAINAGE PROCEDURES 09/26/2022 IR All Drainage Procedures 09/26/2022 Jamaal Jenkins, DO [facility] RAD IR DRAIN CHECK/CHANGE/REMOVE 07/01/2022 IR Drain Check/Change/Remove 07/01/2022 Jamaal Jenkins, DO [facility] RAD IR DRAIN CHECK/CHANGE/REMOVE 08/11/2022 IR Drain Check/Change/Remove 08/11/2022 Pietr Self MD [facility] INTER[facility] RAD IR DRAIN CHECK/CHANGE/REMOVE 08/25/2022 IR Drain Check/Change/Remove 08/25/2022 Jamaal Jenkins, DO [facility] RAD IR DRAIN CHECK/CHANGE/REMOVE 09/10/2022 IR Drain Check/Change/Remove 09/10/2022 Mich Martino MD [facility] INTER[facility] RAD PRO APPLY OF HIP CASTS, TWO LEGS 08/15/2010 CAST APPLICATION, HIP SPICA, BOTH LEGS performed by BARRERA OLIVER at [facility] MAIN OR PRO I&D, POST SPINE, LUMB/SACR/LUMBOSAC N/A 05/20/2014 @I & D, OPEN, DEEP ABSCESS, LUMBAR, SACRAL, LUMBOSACRAL performed by Freddy Isbell MD at [facility] MAIN OR PRO I&D, POST SPINE, LUMB/SACR/LUMBOSAC N/A 05/26/2014 @I & D, OPEN, DEEP ABSCESS, LUMBAR, SACRAL, LUMBOSACRAL performed by Freddy Isbell MD at [facility] MAIN OR PRO IMPACT TOOTH REMOV COMP BONY N/A 06/14/2018 SURGICAL EXTRACTIONS, REMOVAL OF IMPACTED TOOTH, COMPLETELY BONY (WRVU 1.93) performed by Keith Cotton MD at [facility] OSC PRO OSTEOTOMY FEMUR SHAFT/SUPRACONDY 08/15/2010 ??OSTEOTOMY, FEMUR SHAFT OR SUPRACONDYLAR W/O FIXATION performed by BARRERA OLIVER at [facility] MAIN OR PRO RECONSTRUC HIP SOCKET, RESEC FEM HEAD 08/15/2010 ??ACETABULOPLASTY (GIRDLESTONE), RESECTION FEMORAL HEAD, BILATERAL performed by BARRERA OLIVER [facility] MAIN OR PRO REMOVAL DEEP IMPLANT 08/15/2010 REMOVAL IMPLANT, DEEP, BRUNO performed by BARRERA OLIVER at [facility] MAIN OR PRO REMOVAL ERUPTED TOOTH WITH ELEVATION OF MUCOPERIOSTEAL FLAP N/A 06/14/2018 SURGICAL EXTRACTIONS REQUIRING ELEVATION OF MUCOPERIOSTEAL FLAP AND REMOVAL OF BONE OR SECTION OF TOOTH (WRVU 1.09) performed by Keith Cototn MD at [facility] OSC PRO REMOVE INFUSN DEVICE/PUMP N/A 05/11/2014 REMOVAL OF SPINE INFUSION PUMP performed by Jamaal Samuel MD at [facility] MAIN OR PRO REMOVE SPINAL CANAL CATHETER N/A 05/11/2014 REMOVAL OF INTRATHECAL OR EPIDURAL CATHETER performed by Jamaal Samuel MD at [facility] MAIN OR PRO REPR, DURAL/CSF LEAK, NOT REQ LAMINECTOMY N/A 05/20/2014 @REPAIR DURAL\CSF LEAK,NOT REQUIRING LAMINECTOMY performed by Freddy Isbell MD at [facility] MAIN OR Allergies: Allergies Allergen Reactions Fluoxetine Other (See Comments) HIVES, HEART RACES Tegaderm [Transparent Dressings] Itching and Dermatitis Please use [id number] Penicillins Immunization History: Immunization History Administered Date(s) Administered Influenza Vaccine (Novel) [id number], Injectable 02/25/2009 Influenza Vaccine w/Preservative, Split 04/25/2011 [...] Patient is being evaluated by neurosurgery in [facility] and is scheduled to undergo revision lumbar interbody fusion. We are evaluating the patient in anticipation that she will need antibiotics postprocedure. After discussing with the caregivers we decided to hold Bactrim as it will increase the yield of intraoperative cultures. Once surgery is performed in [facility] patient will need ID follow-up inpatient and then her care can be transitioned over to our clinic since it is closer to [place]. At this time Bactrim will be held [...] Dr. Nikolay Tipton MD Infectious Diseases Fellow-[id number] [facility] Pager: [phone] 01/28/2023 10:38 AM * Nikolay Toledo MD [...] later this month at a hospital in [place]. I actually think this poses a good [...] PM EST Office [place] [address] Nikolay Toledo MD [facility] [place] [address] documented as of this encounter Visit Diagnoses Diagnosis long-term 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 Encounter for long-term (current) use of antibiotics documented in this encounter Care Teams Assistant City Attorney Relationship Specialty Start Date End Date Lorna Bal APRN [address] [place] [address] PCP - General Family Medicine 05/27/18 documented as of this encounter
--- OUTSIDE RECORDS SUMMARY | 2023-12-29 14:04 | XMS_ITS | Encounter Summary ---
Author Organization [facility] [place] [address] Care Team Providers Care Back Tender Pulp Drier Name Role Phone Lorna Bal APRN Primary Care Provider [phone] [phone] Encounter Details Date Type Department Care Team (Late st Contact Info) Description 04/24/2023 Telephone Infectious Disease at [facility] [place] [phone] Meme Morataya Social History Tobacco Use Types [...] EST Office Visit [place] [address] Hollie Ambriz MD [facility] [place] [address] documented as of this encounter Visit Diagnoses Not on filedocumented in this encounter Care Teams Back Tender Pulp Drier Relationship Specialty Start Date End Date Lorna Bal, CUP TRIMMING MACHINE OPERATOR [address] [place] [address] PCP - General Family Medicine 05/27/18 documented as of this encounter
--- OUTSIDE RECORDS SUMMARY | 2023-12-29 14:04 | XMS_ITS | Encounter Summary ---
Author Organization [facility] [place] [address] Care Team Providers Care Retail Salesworker Name Role Phone Lorna Bal APRN Primary Care Provider +1 -[phone] Encounter Details Date Type Department Care Team (Late st Contact Info) Description 12/25/[address] [place] [phone] Sirisha Patino Social History Tobacco Use Types [...] Office [place] [address] Hollie Ambriz MD [facility] [place] [address] documented as of this encounter Visit Diagnoses Not on filedocumented in this encounter Care Teams Retail Salesworker Relationship Specialty Start Date End Date Lorna Bal, [place] [address] [place] [address] PCP - General Family Medicine 05/27/18 documented as of this encounter
--- OUTSIDE RECORDS SUMMARY | 2023-12-29 14:04 | XMS_ITS | Encounter Summary ---
[place] [address] Care Team Providers Care Inside Barrel Lathe Operator Name Role Phone Lorna Bal APRN Primary Care Provider [phone] [phone] Encounter Details Date Type Department Care Team [...] PM EST Office Visit [place] [address] Hollie Ambriz MD [facility] [place] [address] documented as of this encounter Visit Diagnoses Not on filedocumented in this encounter Care Teams Inside Barrel Lathe Operator Relationship Specialty Start Date End Date Lorna Bal APRN [address] [place] [address] PCP - General Family Medicine 05/27/18 documented as of this encounter
--- OUTSIDE RECORDS SUMMARY | 2023-12-29 14:04 | XMS_ITS | Encounter Summary ---
Author Organization [facility] [place] [address] Care Team Providers Care Bit Bender Name Role Phone Lorna Bal APRN Primary Care Provider [phone] [phone] Encounter Details Date Type Department Care Team (Late st Contact Info) Description 09/24/2022 Telephone [place] [phone] Valentina Stanton Social History Tobacco Use Types [...] PM EST Office [place] [address] Hollie Ambriz MD [facility] [place] [address] documented as of this encounter Visit Diagnoses Not on filedocumented in this encounter Care Teams Bit Bender Relationship Specialty Start Date End Date Lorna Bal, ORGANIZATIONAL EFFECTIVENESS DIRECTOR [address] [place] [address] PCP - General Family Medicine 05/27/18 documented as of this encounter
--- OUTSIDE RECORDS SUMMARY | 2023-12-29 14:04 | XMS_ITS | Encounter Summary ---
Author Organization [facility] [place] [address] Care Team Providers Care Automatic Presser Name Role Phone Lorna Bal APRN Primary Care Provider +1 -[phone] Reason for Referral * Diagnostic Test (Routine) - Closed Specialty Diagnoses / Procedures Referred By Contac t Referred To Contact Radiology Diagnoses Spinal abscess Procedures IR All Drainage Procedures IR All Biopsy Procedures Jamar Dasilva MD [facility] [place] [address] [place] [address] Referral ID Status Reason Start Date Expiration Date V isits Requested Visits Authorized [id number] Closed Specialty Service Requested 09/26/2022 03/28/2024 1 1 Encounter Details Date Type Department Care Team (Late st Contact Info) Description 09/26/2022 Orders Only [place] [address] Jamar Dasilva MD [facility] [place] [address] Spinal abscess Social History Tobacco [...] PM EST Office [place] [address] Hollie Ambriz MD [facility] [place] [address] documented as of this encounter Results * [...] present throughout the procedure. Jamar Dasilva MD [facility] IR ORDERABLES * AFB culture Back (09/26/2022 12:49 PM EDT) Acid Fast Bacilli Culture No Acid Fast Bacilli isolated [facility] Acid Fast Stain No Acid Fast Bacilli seen [facility] Back 09/26/2022 12:4 9 PM EDT 09/26/2022 2:05 PM EDT Narrative Resulting Agency Comment Spec In Lab Jamar Dasilva MD MICROBIOLOGY - [facility] ORDERABLES [facility] [place] [address] documented in this encounter Visit Diagnoses Diagnosis Spinal abscess Acute osteomyelitis, other specified site Spinal abscess Acute osteomyelitis, other specified site documented in this encounter Care Teams Automatic Presser Relationship Specialty Start Date End Date Lorna Bal APRN [address] [place] [address] PCP - General Family Medicine 05/27/18 documented as of this encounter
--- OUTSIDE RECORDS SUMMARY | 2023-12-29 14:04 | XMS_ITS | Encounter Summary ---
[place] [address] Care Team Providers Care Salesperson New Cars Name Role Phone Lorna Bal APRN Primary Care Provider [phone] [phone] Encounter Details Date Type Department Care Team (Latest Contact Info) Description 04/16/2023 4:05 PM EST Laboratory Appointment Lab [address] [place] [phone] Spinal abscess Social History Tobacco Use Types [...] PM EST Office [place] [phone] Hollie Ambriz MD [facility] [address] INFECTIOUS DISEASE [place] [id number] documented as of this encounter Procedures Procedure Name Priority Date/Time Associated Diagnosis Comments CRP, ACUTE INFLAMMATION Routine 04/16/2023 4:20 PM EST Spinal abscess BILIRUBIN, DIRECT Routine 04/16/2023 4:2 0 PM EST COMPREHENSIVE METABOLIC PANEL Routine 04/16/2023 4:20 PM EST Spinal abscess documented in this encounter Results * Bilirubin, Direct (04/16/2023 4:20 PM EST) Bilirubin, Direct <0.1 0.0 - 0.3 mg/dL [facility] Blood 04/16/2023 4:20 PM EST 04/16/2023 4:28 PM EST Narrative Resulting Agency Comment Spec In Lab George Tipton MD CHEMISTRY ORDERABLES [facility] [place] [address] * (ABNORMAL) Comprehensive metabolic panel (non-fasting) (04/16/2023 4:20 PM EST) Glucose 79 65 - 199 mg/dL [facility] Comment:Diabetes: >=200 mg/d L plus symptoms Blood Urea Nitrogen 10 8 - 18 mg/dL [facility] Creatinine 0.49(L) 0.70 - 1.20 mg/dL [facility] Sodium 137 135 - 145 mmol/L [facility] Potassium 3.8 3.5 - 5.0 mmol/L [facility] Comment: Please note: ??Patients with WBC >100,000 may have falsely elevated Potassium levels. ??For accurate Potassium quantification in these patients send serum separator tube (gold top) for subsequent determinations. ??Contact the Clinical Chemistry Laboratory if there are any questions. Chloride 99 98 - 107 mmol/L [facility] Carbon Dioxide 27 22 - 31 mmol/L [facility] Anion Gap 11 5 - 15 mmol/L [facility] Calcium 9.4 8.5 - 10.5 mg/dL [facility] Protein, Total 7.9 6.1 - 8.0 g/dL [facility] Albumin 4.2 3.2 - 5.2 g/dL [facility] Aspartate Aminotransferase 15 0 - 30 unit/L [facility] Alanine Aminotransferase 40(H) 0 - 30 unit/L [facility] Alkaline Phosphatase 320(H) 35 - 105 unit/L [facility] Bilirubin, Total <0.2(L) 0.2 - 1.3 mg/dL [facility] Est Glomerular Filtration Rate 131 >=60 mL/min/1. 73 m?? [facility] Comment: This patient's estimated GFR [...] Lab Keri Trevino MD CHEMISTRY ORDERABLE S [facility] [place] [address] * (ABNORMAL) CRP, acute inflammation (04/16/2023 4:20 PM EST) C-Reactive Protein 47.2(H) <=4.9 mg/L [facility] Blood 04/16/2023 4:20 PM EST 04/16/2023 4:28 PM EST Narrative Resulting Agency Comment Spec In Lab Keri Trevino MD CHEMISTRY ORDERABLE S [facility] [place] [address] documented in this encounter Visit Diagnoses Diagnosis Spinal abscess Acute osteomyelitis, other specified site documented in this encounter Care Teams Salesperson New Cars Relationship Specialty Start Date End Date Lorna Bal APRN [address] [place] [address] PCP - General Family Medicine 05/27/18 documented as of this encounter
--- OUTSIDE RECORDS SUMMARY | 2023-12-29 14:04 | XMS_ITS | Encounter Summary ---
Author Organization [facility] [address] Care Team Providers Care Process Controls Technician Name Role Phone Lorna Bal APRN Primary Care Provider [phone] [phone] Reason for Referral * Diagnostic Test (Routine) - Closed Specialty Diagnoses / Procedures Referred By Contac t Referred To Contact Radiology Diagnoses Spinal abscess Procedures CT Lumbar Spine w Contrast George Tipton MD [facility] [place] [address] [address] [place] [address] Referral ID Status Reason Start Date Expiration Date V isits Requested Visits Authorized [id number] Closed Specialty Service Requested 04/15/2023 10/14/2024 1 1 Encounter Details Date Type Department Care Team (Late st Contact Info) Description 04/15/2023 Notes [place] [address] George Tipton MD [facility] [place] [address] Social History Tobacco Use Types [...] PM EST Office [place] [address] Hollie Ambriz MD [facility] [place] [address] documented as of this encounter Results * [...] questions please contact the health acute care clinical nurse specialist that requested your imaging first. ? [...] have questions please contactthe health acute care clinical nurse specialist that requested your imaging first. Keri Trevino MD IMG CT ORDERABLES documented in this encounter Visit Diagnoses Diagnosis Spinal abscess- Primary Acute osteomyelitis, other specified site Spinal abscess Acute osteomyelitis, other specified site documented in this encounter Care Teams Process Controls Technician Relationship Specialty Start Date End Date Lorna Bal APRN [address] [place] [address] PCP - General Family Medicine 05/27/18 documented as of this encounter
--- OUTSIDE RECORDS SUMMARY | 2023-12-29 14:04 | XMS_ITS | Encounter Summary ---
Author Organization [facility] [place] [address] Care Team Providers Care Fruit Press Operator Name Role Phone Lorna Bal APRN Primary Care Provider +1 [phone] Encounter Details Date Type Department Care Team (Late st Contact Info) Description 04/03/2023 Telephone [place] [phone] Halima García Social History Tobacco Use Types [...] the lab orders were never [facility]. I reviewed the lab orders and she mentioned the ESR was missing. Jack Varghese documented in this encounter Plan of Treatment Upcoming Encounters Date Type Department Care Team (Late st Contact Info) Description 06/02/2024 12:30 PM EST Office [place] [address] Hollie Ambriz MD [facility] [place] [address] documented as of this encounter Visit Diagnoses Diagnosis Spinal abscess Acute osteomyelitis, other specified site documented in this encounter Care Teams Fruit Press Operator Relationship Specialty Start Date End Date Lorna Bal APRN [address] [place] [address] PCP - General Family Medicine 05/27/18 documented as of this encounter
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
--- OUTSIDE RECORDS SUMMARY | 2023-12-29 14:04 | XMS_ITS | Encounter Summary ---
Author Organization [facility] Address [facility] [place] [address] Care Team Providers Care Commutator Repairer Name Role Phone Lorna Bal APRN Primary Care Provider [phone] Encounter Details Date Type Department Care Team (Late st Contact Info) Description 09/24/2022 Orders [place] [address] Hank Nunez PA [facility] [place] [address] Social History Tobacco Use Types Packs/Day Years [...] Patient Name: Tana Cavazos : 1995 MR#: [id number] Spoke with Anderson regarding concerns regarding overall plan for Tana. Recommended she attend her appointments in [place] in hope of guiding toward more definitive [...] PM EST Office [place] [address] Hollie Ambriz MD [facility] [place] [address] documented as of this encounter Visit Diagnoses Not on filedocumented in this encounter Care Teams Commutator Repairer Relationship Specialty Start Date End Date Lorna Bal APRN [address] [place] [address] PCP - General Family Medicine 05/27/18 documented as of this encounter
--- OUTSIDE RECORDS SUMMARY | 2023-12-29 14:04 | XMS_ITS | Encounter Summary ---
Author Organization [facility] Address [facility] [place] [address] Care Team Providers Care Jacker Name Role Phone Lorna Bal APRN Primary Care Provider [phone] Reason for Visit * Reason Comments Follow-up Encounter Details Date Type Department Care Team (Late st Contact Info) Description 03/26/2023 10:00 AM EST Office Visit [place] [address] George Tipton MD [facility] [place] [address] 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 Dx) Social History Tobacco [...] remained on bactrim. Followed up with [place]. MRI was not possible sec. To hardware. CRP/ESR was trending upwards. NSG referred her to [facility] for surgery. The patient went to [...] Tipton MD Infectious Diseases Fellow- [id number] Pager: [phone] 03/25/2023 4:00 PM Plan discussed with Dr. Gabo Trevino This note was created using [employer]) voice recognition software. I have seen the [...] 1-2 weeks from initiation. Gabo Trevino MD [facility] Infectious Disease * Olinda Barahona [...] 1-2 weeks from initiation. Gabo Trevino MD [facility] Infectious Disease documented in this encounter Plan of Treatment Upcoming Encounters Date Type Department Care Team (Late st Contact Info) Description 06/02/2024 12:30 PM EST Office [place] [address] Hollie Ambriz MD [facility] [place] [address] Scheduled Orders Name Type Priority Associated Diagnoses [...] PM EST) C-Reactive Protein 47.2(H) <=4.9 mg/L [facility] Blood 04/16/2023 4:20 PM EST 04/16/2023 4:28 PM EST Narrative Resulting Agency Comment Spec In Lab Gabo Trevino MD CHEMISTRY ORDERABLE S [facility] [place] [address] * (ABNORMAL) Comprehensive metabolic panel (non-fasting) (04/16/2023 4:20 PM EST) Glucose 79 65 - 199 mg/dL [facility] Comment:Diabetes: >=200 mg/d L plus symptoms Blood Urea Nitrogen 10 8 - 18 mg/dL [facility] Creatinine 0.49(L) 0.70 - 1.20 mg/dL [facility] Sodium 137 135 - 145 mmol/L [facility] Potassium 3.8 3.5 - 5.0 mmol/L [facility] Comment: Please note: ??Patients with WBC >100,000 may have falsely elevated Potassium levels. ??For accurate Potassium quantification in these patients send serum separator tube (gold top) for subsequent determinations. ??Contact the Clinical Chemistry Laboratory if there are any questions. Chloride 99 98 - 107 mmol/L [facility] Carbon Dioxide 27 22 - 31 mmol/L [facility] Anion Gap 11 5 - 15 mmol/L [facility] Calcium 9.4 8.5 - 10.5 mg/dL [facility] Protein, Total 7.9 6.1 - 8.0 g/dL [facility] Albumin 4.2 3.2 - 5.2 g/dL [facility] Aspartate Aminotransferase 15 0 - 30 unit/L [facility] Alanine Aminotransferase 40(H) 0 - 30 unit/L [facility] Alkaline Phosphatase 320(H) 35 - 105 unit/L [facility] Bilirubin, Total <0.2(L) 0.2 - 1.3 mg/dL [facility] Est Glomerular Filtration Rate 131 >=60 mL/min/1. 73 m?? [facility] Comment: This patient's estimated GFR was [...] Lab Gabo Trevino MD [place] [address] * US Abdomen Limited Hepatology Protocol (03/27/2023 [...] signed by: Curt Dozier MD, [facility] ([phone]), at 03/27/2023 3:31 PM Thank you for letting us participate in the care of this patient. If you are a health care provider and have any questions regarding this report, please contact the number above. For patients who have questions, please contact the health health care law specialist that requested your imaging first. ? Curt Dozier, Staff Physician Electronically Signed Final Report ?? 03/27/2023 03:36 pm Narrative 03/27/2023 3:37 PM EST Abdominal ? (Signed Final 03/27/2023 03:36 pm) PATIENT INFO: ID #: ? [id number] ?: ??[birth year] (27 yrs)(F) Name: ? TANA SHELTON ?Visit Date: 03/27/2023 03:21 pm PERFORMED BY: Attending: ?Jacoby GONZALES MD, Curt Langston Performed By: ? Shelby Gardner RDMS Referred By: ?GABO TREVINO Location: ? [place] SERVICE(S) PROVIDED: [facility] - Hepatology Protocol - Abdominal ?[id number] Limited Survey Single Organ or Quadrant - [id number] INDICATIONS: Transaminitis ------ LIVER: ------ Right Lobe [...] 03/27/2023 03:36 pm) PATIENT INFO: ID #: [id number] : [id number] (27 yrs)(F) Name: TANA SHELTON Visit Date: 03/27/2023 03:21 pm PERFORMED BY: Attending: Jacoby GONZALES MD, Arthur L. Performed By: Shelby Gardner RDMS Referred By: GABO TREVINO Location: [place] SERVICE(S) PROVIDED: [facility] - Hepatology Protocol - Abdominal [id number] Limited Survey Single Organ or Quadrant - [id number] INDICATIONS: Transaminitis ------ LIVER: ------ Right Lobe [...] signed by: Curt Dozier MD, [facility] ([phone]), at 03/27/2023 3:31 PM Thank you for letting us participate in the care of this patient. If you are a health care provider and have any questions regarding this report, please contact the number above. For patients who have questions, please contact the health health care law specialist that requested your imaging first. Curt Dozier, Staff Physician Electronically Signed Final Report 03/27/2023 03:36 pm Gabo Trevino MD IMG US GEN ORDERABL ES * Scan, Peripheral Blood (03/26/2023 11:06 AM EST) Pathologist [facility] Plat estimate Normal [facility] RBC Morphology Abnormal [facility] Hypochromia Slight [facility] Stomatocytes 1-5 /HPF [facility] Stippled RBC Present >1/HPF [facility] Blood 03/26/2023 11:0 6 AM EST 03/26/2023 11:21 AM EST Narrative Resulting Agency Comment Spec In Lab George Tipton MD HEMATOLOGY ORDERABLE S [facility] [place] [address] * Differential, Automated (03/26/2023 11:06 AM EST) Neutrophil % 62.0 % [facility] Neutrophil Absolute 3.69 1.70 - 6.10 x10(3)/[facility]AT[facility] Lymph % 27.7 % [facility] Lymphocytes Abs 1.6 0.9 - 3.2 x10(3)/[facility]ORATORY Monocyte % 7.7 % [facility] Monocyte Abs 0.5 0.3 - 0.9 x10(3)/[facility] Eos % 1.8 % [facility] Eosinophils Abs 0.1 0.0 - 0.4 x10(3)/[facility] Basophil % 0.5 % [facility] Baso Absolute 0.0 0.0 - 0.1 x10(3)/[facility]ATORY Immature Gran % 0.30 % [facility] Comment: Immature granulocytes(IG's)percentage and absolute count will include metamyelocytes, myelocytes, and promyelocytes. Blood smears from CBCs yielding IG's will be scanned manually for concordance. If this scan disagrees with the automated IG or if promyelocytes are noted, a manual differential will be performed. Immature Gran Absolute 0.02 0.00 - 0.04 x10(3)/[facility] Blood 03/26/2023 11:0 6 AM EST 03/26/2023 11:21 AM EST Narrative Resulting Agency Comment Spec In Lab George Tipton MD HEMATOLOGY ORDERABLE S Performing Organization Address City/State/[facility] Co de Phone Number [facility] [place] [address] * (ABNORMAL) Hemogram (03/26/2023 11:06 AM EST) White Blood Cell 6.0 4.0 - 9.5 x10(3)/mc L [facility] Red Blood Cell 3.07(L) 4.00 - 5.21 x10(6)/mc L [facility] Hemoglobin 8.9(L) 11.7 - 15.5 g/dL [facility] Hematocrit 27.5(L) 35.7 - 45.8 % [facility] Mean Cell Volume 89.6 82.6 - 94.[address] [facility] Mean Cell Hemoglobin 29.0 27.1 - 32.0 pg [facility] Mean Cell Hemoglobin Concentration 32.4 31.7 - 35.0 g/dL [facility] Platelet 355 145 - 357 x10(3)/mc L [facility] RDW Standard Deviation 49.0(H) 37.0 - 46.[address] [facility] RDW coefficient of variation 15.0(H) 11.5 - 14.1 % [facility] Mean Platelet Volume 9.1 7.6 - 12.9 fL [facility] NRBC% auto 0.0 % [facility] NRBC Absolute 0.000 0.000 - 0.000 x10(3)/mc L [facility] Blood 03/26/2023 11:0 6 AM EST 03/26/2023 11:21 AM EST Narrative Resulting Agency Comment Spec In Lab George Tipton MD HEMATOLOGY ORDERABLE S Performing Organization Address City/State/[facility] Co de Phone Number [facility] [place] [address] * (ABNORMAL) Comprehensive metabolic panel (non-fasting) (03/26/2023 11:06 AM EST) Glucose 81 65 - 199 mg/dL [facility] Comment:Diabetes: >=200 mg/d L plus symptoms Blood Urea Nitrogen 19(H) 8 - 18 mg/dL [facility] Creatinine 0.27(L) 0.70 - 1.20 mg/dL [facility] Sodium 140 135 - 145 mmol/L [facility] Potassium 4.3 3.5 - 5.0 mmol/L [facility] Comment: Please note: ??Patients with WBC >100,000 may have falsely elevated Potassium levels. ??For accurate Potassium quantification in these patients send serum separator tube (gold top) for subsequent determinations. ??Contact the Clinical Chemistry Laboratory if there are any questions. Chloride 104 98 - 107 mmol/L [facility] Carbon Dioxide 23 22 - 31 mmol/L [facility] Anion Gap 13 5 - 15 mmol/L [facility] Calcium 9.8 8.5 - 10.5 mg/dL [facility] Protein, Total 7.7 6.1 - 8.0 g/dL [facility] Albumin 4.3 3.2 - 5.2 g/dL [facility] Aspartate Aminotransferase 45(H) 0 - 30 unit/L [facility] Alanine Aminotransferase 101(H) 0 - 30 unit/L [facility] Alkaline Phosphatase 378(H) 35 - 105 unit/L [facility] Bilirubin, Total <0.2(L) 0.2 - 1.3 mg/dL [facility] Est Glomerular Filtration Rate 151 >=60 mL/min/1. 73 m?? [facility] Comment: This patient's estimated GFR was [...] MD CHEMISTRY ORDERABLE S Performing Organization Address City/[facility]/ZIP Co de Phone Number [facility] [address] * (ABNORMAL) Sedimentation rate (03/26/2023 11:06 AM EST) Sedimentation Rate Automated 69(H) 2 - 37 mm/hr [facility] Comment: Effective April 06, 2019 new capillary photometric technology has resulted in a change in reference ranges. It is recommended that each ESR result be reviewed with its own age appropriate reference range. Blood 03/26/2023 11:0 6 AM EST 03/26/2023 11:21 AM EST Narrative Resulting Agency Comment Spec In Lab Gabo Trevino MD HEMATOLOGY ORDERABL ES Performing Organization Address City/[facility]/ZIP Co de Phone Number [facility] [place] [address] * (ABNORMAL) CRP, acute inflammation (03/26/2023 11:06 AM EST) C-Reactive Protein 86.3(H) <=4.9 mg/L [facility] Blood 03/26/2023 11:0 6 AM EST 03/26/2023 11:21 AM EST Narrative Resulting Agency Comment Spec In Lab Gabo Trevino MD CHEMISTRY ORDERABLE S Performing Organization Address City/State/[facility] Co de Phone Number [facility] [address] documented in this encounter Visit Diagnoses Diagnosis Spinal abscess- Primary Acute osteomyelitis, other specified site Spinal abscess Acute osteomyelitis, other specified site documented in this encounter Care Teams Jacker Relationship Specialty Start Date End Date Lorna Bal APRN [address] [place] [address] PCP - General Family Medicine 05/27/18 documented as of this encounter
--- OUTSIDE RECORDS SUMMARY | 2023-12-29 14:04 | XMS_ITS | Encounter Summary ---
Author Organization [facility] [place] [address] Care Team Providers Care Customer Experience Manager Name Role Phone Lorna Bal APRN Primary Care Provider [phone] Encounter Details Date Type Department Care Team (Late st Contact Info) Description 09/24/2022 Telephone [place] [id number] Sergey Keane MD [facility] [place] [address] Social History Tobacco Use Types Packs/Day Years [...] stable to go to her appt in [place] tomorrow with NSG to show them the lesions and see if they can do something about it. I discussed I had limited ability to assist and that a change of antibiotics without new cultures and drainage was not a great idea and the I would be happy to work with either IR here or NSG in [place] to assist. Discussed warning signs to present to the ED. I suspect she just has continued inflammation of the hardware and now that the drain is out it is reaccumulating. Likely will need a chronic drain or surgery. This will be up to NSG on [place]. * Telephone Encounter - Maryanne Sarabia RN [...] Tana has a neurosurgery appt tomorrow in [place]. Mom can be reached at [phone] until 5 pm. Then after 5 pm call Fannie Villarreal [phone]. Note forwarded to Dr. Gerber Dasilva and Dr. Sergey Doan. documented in this encounter Plan of Treatment Upcoming Encounters Date Type Department Care Team (Late st Contact Info) Description 06/02/2024 12:30 PM EST Office Visit [place] [address] Hollie Ambriz MD [facility] [place] [address] documented as of this encounter Visit Diagnoses Not on filedocumented in this encounter Care Teams Customer Experience Manager Relationship Specialty Start Date End Date Lorna Bal APRN [address] [place] [address] PCP - General Family Medicine 05/27/18 documented as of this encounter
--- OUTSIDE RECORDS SUMMARY | 2023-12-29 14:04 | XMS_ITS | Encounter Summary ---
Author Organization [facility] [place] [address] Care Team Providers Care Site Technician Name Role Phone Lorna Bal APRN Primary Care Provider [phone] Encounter Details Date Type Department Care Team (Late st Contact Info) Description 10/27/2022 Telephone [place] [phone] Halima García Social History Tobacco Use Types [...] PM EST Office Visit [place] [address] Hollie Ambriz MD [facility] [place] [address] documented as of this encounter Visit Diagnoses Not on filedocumented in this encounter Care Teams Site Technician Relationship Specialty Start Date End Date Lorna Bal APRN [address] [place] [address] PCP - General Family Medicine 05/27/18 documented as of this encounter
--- OUTSIDE RECORDS SUMMARY | 2023-12-29 14:04 | XMS_ITS | Encounter Summary ---
Author Organization Formerly [facility] [place] [address] Care Team Providers Care Chief Clerk Shelter Name Role Phone Lorna Bal APRN Primary Care Provider +1 -[phone] Reason for Referral * Diagnostic Test (Routine) - Closed Specialty Diagnoses / Procedures Referred By Contac t Referred To Contact Radiology Diagnoses Spinal abscess Procedures CT Lumbar Spine w Contrast Jamar Dasilva MD [facility] [place] [address] [facility] [place] [address] Referral ID Status Reason Start Date Expiration Date V isits Requested Visits Authorized [id number] Closed Specialty Service Requested 09/25/2022 03/27/2024 1 1 Reason for Visit * Diagnostic Test (Routine) - Closed Specialty Diagnoses / Procedures Referred By Contac t Referred To Contact Radiology Diagnoses Spinal abscess Procedures CT Lumbar Spine w Contrast Jamar Dasilva MD [facility] [place] [address] [facility] [place] [address] Referral ID Status Reason Start Date Expiration Date V isits Requested Visits Authorized [id number] Closed Specialty Service Requested 09/25/2022 03/27/2024 1 1 Encounter Details Date Type Department Care Team (Latest Contact Info) Description 09/26/2022 10:24 AM EDT - 09/26/2022 12:12 PM EDT Hospital [place] [address] Jamar Dasilva MD [facility] [place] [address] Spinal abscess Discharge Disposition: Home [...] EST Office Visit Infectious Disease at [facility] [place] [address] Hollie Ambriz MD [facility] [place] [address] documented as of this encounter Procedures Procedure [...] first. Electronically signed by: Pantera Salazar MD, [facility]([phone]), at 09/26/2022 10:59 AM Jamar Dasilva MD [...] mLs documented in this encounter Care Teams Chief Clerk Shelter Relationship Specialty Start Date End Date Lorna Bal, [place] [address] [place] [address] PCP - General Family Medicine 05/27/18 documented as of this encounter
--- OUTSIDE RECORDS SUMMARY | 2023-12-29 14:04 | XMS_ITS | Encounter Summary ---
Author Organization [facility] [place] [address] Care Team Providers Care Maintenance Man Name Role Phone Lorna Bal APRN Primary Care Provider +1 -[phone] Encounter Details Date Type Department Care Team (Late st Contact Info) Description 09/25/2022 Telephone [place] [address] Valentina Stanton Social History Tobacco Use Types [...] PM EST Office [place] [address] Hollie Ambriz MD [facility] [place] [address] documented as of this encounter Visit Diagnoses Not on filedocumented in this encounter Care Teams Maintenance Man Relationship Specialty Start Date End Date Lorna Bal, ELECTROTYPER HELPER [address] [place] [address] PCP - General Family Medicine 05/27/18 documented as of this encounter
--- OUTSIDE RECORDS SUMMARY | 2023-12-29 14:04 | XMS_ITS | Encounter Summary ---
[place] [address] Care Team Providers Care Dental Patient Coordinator Name Role Phone Lorna Bal APRN Primary Care Provider +1 -[phone] Encounter Details Date Type Department Care Team (Latest Contact Info) Description 03/26/2023 Travel Social History Tobacco Use Types Packs/Day Years Used Date Smoking Tobacco: Never Smokeless Tobacco: Never Comments:NO SMOKERS IN THE H OME Alcohol Use Standard Drinks/Week Comments No 0 (1 standard drink = 0.6 oz pur e alcohol) [facility] Inpatient Questions Answer Date Recorded Does Anyone [...] PM EST Office [place] [address] Hollie Ambriz MD [facility] [place] [address] documented as of this encounter Visit Diagnoses Not on filedocumented in this encounter Care Teams Dental Patient Coordinator Relationship Specialty Start Date End Date Lorna Bal APRN [address] [place] [address] PCP - General Family Medicine 05/27/18 documented as of this encounter
--- OUTSIDE RECORDS SUMMARY | 2023-12-29 14:04 | XMS_ITS | Encounter Summary ---
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 I had an extensive conversation with [facility] provider regarding patient's clinical course at and [...] for drain check and spine surgery at [facility] for possible surgical Options. They would like to continue receiving ID care at [facility] at least until surgical options are explored at outside institution. Plan Based on patient clinical presentation, review of data and chart my plan is as follows: -Continue doxycycline 100 mg PO BID -Avoid sunlight exposure while on doxyxycline -Pending evaluation by surgery at [facility], at that point they will decide if they continue care at or will see ID at other institution -Alarm signs were provided, come to the ED, call the office or 911 if initial symptoms return, fever, chills, associated with nausea, vomiting profuse diarrhea, confusion decrease urinary volumes Case discussed with Dr. Jamar Dasilva Follow up: As needed Sergey Doan MD Infectious Disease Fellow [facility] 09/14/2022 Chronic suppression Behaving as infection * Jamar Dasilva MD - 09/10/2022 10:00 AM EDT Attending Addendum: I have seen and examined the patient, reviewed the data and agree with the note by Dr. Jefferson. documented in this encounter Plan of Treatment Upcoming Encounters Date Type Department Care Team (Late st Contact Info) Description 06/02/2024 12:30 PM EST Office [place] [address] Hollie Ambriz MD [facility] [place] [address] documented as of this encounter Visit Diagnoses Diagnosis Spinal abscess Acute osteomyelitis, other specified site skilled nursing 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 Encounter for long-term (current) use of antibiotics Soft tissue abscess Cellulitis and abscess of other specified site documented in this encounter Care Teams High School Drafting Teacher Relationship Specialty Start Date End Date Lorna Bal APRN [address] [place] [address] PCP - General Family Medicine 05/27/18 documented as of this encounter
--- OUTSIDE RECORDS SUMMARY | 2023-12-29 14:04 | XMS_ITS | Encounter Summary ---
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, other site Procedures CT Thoracic Spine wo Contrast (Generic) Lorna Bal APRN [address] [place] [address] [facility] [place] [address] Referral ID Status Reason Start Date Expiration Date V isits Requested Visits Authorized [id number] Closed Specialty Service Requested 12/25/2022 06/24/2024 1 1 * Diagnostic Test (Routine) - Closed Specialty Diagnoses / Procedures Referred By Contac t Referred To Contact Radiology Diagnoses Cerebral palsy, unspecified type 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, other site Procedures CT Cervical Spine wo Contrast Lorna Bal APRN [address] [place] [address] [facility] [place] [address] Referral ID Status Reason Start Date Expiration Date V isits Requested Visits Authorized [id number] Closed Specialty Service Requested 12/25/2022 06/24/2024 1 1 Reason for Visit * Diagnostic Test (Routine) - Closed Specialty Diagnoses / Procedures Referred By Contmonica t Referred To Contact Radiology Diagnoses Cerebral palsy, unspecified type 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, other site Procedures CT Cervical Spine wo Contrast Lorna Bal APRN [address] [place] [address] [facility] [place] [address] Referral ID Status Reason Start Date Expiration Date V isits Requested Visits Authorized [id number] Closed Specialty Service Requested 12/25/2022 06/24/2024 1 1 Encounter Details Date Type Department Care Team (Latest Contact Info) Description 12/31/2022 10:50 AM EDT - 12/31/2022 11:59 PM EDT [place] [address] Lorna Bal APRN [address] [place], [place] [id number] Cerebral palsy, unspecified type; Congenital deformity of [...] PM EST Office [place] [address] Hollie Ambriz MD [facility] [place] [address] documented as of this encounter Procedures Procedure [...] who have questions please contact the health lawn caretaker that requested your imaging first. ? [...] patients who have questions please contactthe health lawn caretaker that requested your imaging first. Lorna [...] who have questions please contact the health lawn caretaker that requested your imaging first. ? [...] patients who have questions please contactthe health lawn caretaker that requested your imaging first. 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
--- OUTSIDE RECORDS SUMMARY | 2023-12-29 14:04 | XMS_ITS | Encounter Summary ---
Author Organization [facility] [place] [address] Care Team Providers Care Youth Care Worker Name Role Phone Lorna Bal APRN Primary Care Provider +1 -[phone] Reason for Referral * Diagnostic Test (Routine) [...] sequela Procedures IR Drain Check/Change/Remove Jamaal Jenkins, [facility] [place] [address] [facility] [place] [address] Referral ID Status Reason Start Date Expiration Date Visits Requested Visits Authorized [id number] Pending Review Specialty Service Requested 08/25/2022 02/26/2024 [...] sequela Procedures IR Drain Check/Change/Remove Jamaal Jenkins, [facility] [place] [address] [facility] [address] Referral ID Status Reason Start Date Expiration Date Visits Requested Visits Authorized [id number] Pending Review Specialty Service Requested 08/25/2022 02/26/2024 1 1 Encounter Details Date Type Department Care Team (Latest Contact Info) Description 09/10/2022 10:49 AM EDT - 09/10/2022 11:59 PM EDT Hospital [place] [address] Jamaal Jenkins, [facility] [place] [address] Spinal abscess; Abscess; Contracture of left elbow; [...] 0.6 oz pur e alcohol) [facility] Inpatient Questions Answer Date Recorded [...] Qiu RN - 09/10/2022 12:55 PM EDT [facility] Vascular and Interventional Radiology Discharge Instructions [...] is during regular office hours, please call [phone]. If it is after regular office hours, or on weekends or holidays, please call [phone] and ask to speak to the Production Generalist validation intern for Interventional Radiology. You may resume your [...] of : 1995 AGE: 27 y.o. Address: [address] [place] [address] Phone: [phone] (home) Mobile: Telephone Information: Referring Provider: Jamaal [...] Questions Answers Where will study be performed? [facility] Radiology [120] Reason for exam and clinical history: Paraspinal abscesses status post drain palcement. Persistent collections. Drain repositioned 08/25. Routine 3-week drain check. Is the patient ? No Is the patient on anticoagulant / antiplatelet therapy ? No Allergies Allergen Reactions ??? Fluoxetine Other (See Comments) HIVES, HEART RACES ??? Tegaderm [Transparent Dressings] Itching and Dermatitis Please use [id number] ??? Penicillins Pertinent PMH: Patient Active Problem [...] All Drainage Procedures 06/25/2022 Mich Martino MD [facility] INTERVENTIONL RAD ??? IR ALL DRAINAGE PROCEDURES 07/04/2022 IR All Drainage Procedures 07/04/2022 Mich Martino MD [facility] INTERVENTIONL RAD ??? IR ALL DRAINAGE PROCEDURES 07/24/2022 IR All Drainage Procedures 07/24/2022 Anurag Kumar MD [facility] INTERVENTIONL RAD ??? IR DRAIN CHECK/CHANGE/REMOVE 07/01/2022 IR Drain Check/Change/Remove 07/01/2022 Jamaal Jenkins, DO [facility] INTERVENTIONL RAD ??? IR DRAIN CHECK/CHANGE/REMOVE 08/11/2022 IR Drain Check/Change/Remove 08/11/2022 Piter Self MD [facility] INTERVENTIONL RAD ??? IR DRAIN CHECK/CHANGE/REMOVE 08/25/2022 IR Drain Check/Change/Remove 08/25/2022 Jamaal Jenkins, DO [facility] INTERVENTIONL RAD ??? PRO APPLY OF HIP CASTS, TWO LEGS 08/15/2010 CAST APPLICATION, HIP SPICA, BOTH LEGS performed by BARRERA OLIVER at [facility] OR ? ? PRO I&D, POST SPINE, LUMB/SACR/LUMBOSAC N/A 05/20/2014 @I & D, OPEN, DEEP ABSCESS, LUMBAR, SACRAL, LUMBOSACRAL performed by Freddy Isbell MD at [facility] OR ? ? PRO I&D, POST SPINE, LUMB/SACR/LUMBOSAC N/A 05/26/2014 @I & D, OPEN, DEEP ABSCESS, LUMBAR, SACRAL, LUMBOSACRAL performed by Freddy Isbell MD at [facility] OR ??? PRO IMPACT TOOTH REMOV COMP BONY N/A 06/14/2018 SURGICAL EXTRACTIONS, REMOVAL OF IMPACTED TOOTH, COMPLETELY BONY (WRVU 1.93) performed by Keith Cotton MD at [facility] OSC ??? PRO OSTEOTOMY FEMUR SHAFT/SUPRACONDY 08/15/2010 ??OSTEOTOMY, FEMUR SHAFT OR SUPRACONDYLAR W/O FIXATION performed by BARRERA OLIVER at [facility] OR ??? PRO RECONSTRUC HIP SOCKET, RESEC FEM HEAD 08/15/2010 ??ACETABULOPLASTY (GIRDLESTONE), RESECTION FEMORAL HEAD, BILATERAL performed by BARRERA OLIVER [facility] OR ??? PRO REMOVAL DEEP IMPLANT 08/15/2010 REMOVAL IMPLANT, DEEP, BRUNO performed by BARRERA OLIVER at [facility] OR ??? PRO REMOVAL ERUPTED TOOTH WITH ELEVATION OF MUCOPERIOSTEAL FLAP N/A 06/14/2018 SURGICAL EXTRACTIONS REQUIRING ELEVATION OF MUCOPERIOSTEAL FLAP AND REMOVAL OF BONE OR SECTION OF TOOTH (WRVU 1.09) performed by Keith Cotton MD at [facility] OSC ??? PRO REMOVE INFUSN DEVICE/PUMP N/A 05/11/2014 REMOVAL OF SPINE INFUSION PUMP performed by Jamaal Samuel MD at [facility] MAIN OR ??? PRO REMOVE SPINAL CANAL CATHETER N/A 05/11/2014 REMOVAL OF INTRATHECAL OR EPIDURAL CATHETER performed by Jamaal Samuel MD at [facility] MAIN OR ??? PRO REPR, DURAL/CSF LEAK, NOT REQ LAMINECTOMY N/A 05/20/2014 @REPAIR DURAL\CSF LEAK,NOT REQUIRING LAMINECTOMY performed by Freddy Isbell MD at [facility] MAIN OR Medications: Current Outpatient Medications [...] Office [place] [address] Hollie Ambriz MD [facility] [place] [address] documented as of this encounter Procedures Procedure [...] mLs documented in this encounter Care Teams Youth Care Worker Relationship Specialty Start Date End Date Lorna Bal, [place] [address] [place] [address] PCP - General Family Medicine 05/27/18 documented as of this encounter
--- OUTSIDE RECORDS SUMMARY | 2023-12-29 14:04 | XMS_ITS | Encounter Summary ---
Author Organization [facility] [place] [address] Care Team Providers Care Warehouse Associate Driver Name Role Phone Lorna Bal APRN Primary Care Provider +1 -[phone] Reason for Visit * Consultation (Routine) - Authorized Specialty Diagnoses / Procedures Referred By Karlo duarte Referred To Contact Gastroenterology Diagnoses Constipation, unspecified constipation type constipation Lorna Bal APRN [address] [place] [address] [facility] [place] [address] [address] Referral ID Status Reason Start Date Expiration Date Visits Requested Visits Authorized [id number] Authorized Consult, Test & Treat PCP Updated and/or Approved 01/30/2023 01/30/2024 12 12 Encounter Details Date Type Department Care Team (Latest Contact Info) Description 06/08/2023 9:00 AM EST TH Visit (TeleHealth) [place] [address] Samantha Crystal APRN [facility] [place] [address] Constipation, unspecified constipation type Social [...] stomach discomfort. She is being followed in [place] after hospital stay for a spinal infection. [...] BARRERA OLIVER [facility] MAIN OR PRO REMOVAL DEEP IMPLANT 08/15/2010 [...] INTRATHECAL OR EPIDURAL CATHETER performed by Jamaal Samule MD at [facility] MAIN [...] [Transparent Dressings] Itching and Dermatitis Please use [id number] Cyclobenzaprine Other Reaction(s): Not available Penicillins SOCIAL [...] labs. Theyare requesting these to go to [facility] ([facility] health [facility]). They are [...] Mom requesting consent to order colonoscopy. Called [phone]. Awaiting call back for consent for colonoscopy. Ordered colonoscopy at this time and will await consent confirmation with mom prior to procedure. Total time spent on encounter today: Time spent reviewing records prior to this encounter: 10 minutes Time spent during encounter with patient including counselin minutes Time spent documenting encounter after office visit: 5 minutes Samantha Crystal, MSN, RESTAURANT MANAGING PARTNER, EXTENSION SERVICE ADVISOR-C Section of Gastroenterology [place] [address] documented in this encounter Plan of Treatment Upcoming Encounters Date Type Department Care Team (Late st Contact Info) Description 06/02/2024 12:30 PM EST Office [place] [address] Hollie Ambriz MD [facility] [place] [address] Scheduled Orders Name Type Priority Associated Diagnoses [...] type documented in this encounter Care Teams Warehouse Associate Driver Relationship Specialty Start Date End Date Lorna Bal APRN [address] [place] [address] PCP - General Family Medicine 05/27/18 documented as of this encounter
--- OUTSIDE RECORDS SUMMARY | 2023-12-29 14:04 | XMS_ITS | Encounter Summary ---
Author Organization [facility] [place] [address] Care Team Providers Care Stock Plan Administrator Name Role Phone Lorna Bal APRN Primary Care Provider +1 -[phone] Reason for Referral * Consultation (Routine) - Closed Specialty Diagnoses / Procedures Referred By Contac t Referred To Contact Wound Care Diagnoses Osteomyelitis, unspecified site, unspecified type Spinal cord abscess Lorna Bal APRN [address] [place] [address] [facility] [place] [address] Referral ID Status Reason Start Date Expiration Date V isits Requested Visits Authorized [id number] Closed Consult, Test & Treat PCP Updated and/or Approved 12/26/2022 12/26/2023 12 12 Encounter Details Date Type Department Care Team (Latest Contact Info) Description 12/26/2022 Transcribe Orders eDH Incoming Referrals [phone] Lorna Bal APRN [address] [place] [address] Osteomyelitis, unspecified site, unspecified type; [...] PM EST Office [place] [address] Hollie Ambriz MD [facility] [place] [address] Scheduled Referrals Name Type Priority Associated Diagnoses Orde r Schedule Referral to Plastic Surgery Outpatient Referral Routine Osteomyelitis, unspecified site, unspecified type Spinal cord abscess Ordered: 12/26/2022 documented as of this encounter Visit Diagnoses Diagnosis Osteomyelitis, unspecified site, unspecified type Spinal cord abscess Acute osteomyelitis, other specified site documented in this encounter Care Teams Stock Plan Administrator Relationship Specialty Start Date End Date Lorna Bal APRN [address] [place] [address] PCP - General Family Medicine 05/27/18 documented as of this encounter
--- OUTSIDE RECORDS SUMMARY | 2023-12-29 14:04 | XMS_ITS | Encounter Summary ---
[place] [address] Care Team Providers Care National Van Truck Driver Name Role Phone Lorna Bal APRN Primary Care Provider +1 -[phone] Encounter Details Date Type Department Care Team (Latest Contact Info) Description 04/16/2023 Travel Social History Tobacco Use Types Packs/Day Years Used Date Smoking Tobacco: Never Smokeless Tobacco: Never Comments:NO SMOKERS IN THE H OME Alcohol Use Standard Drinks/Week Comments No 0 (1 standard drink = 0.6 oz pur e alcohol) [facility] Inpatient Questions Answer Date Recorded Does Anyone [...] Office [place] [address] Hollie Ambriz MD [facility] [place] [address] documented as of this encounter Visit Diagnoses Not on filedocumented in this encounter Care Teams National Van Truck Driver Relationship Specialty Start Date End Date Lorna Bal APRN [address] [place] [address] PCP - General Family Medicine 05/27/18 documented as of this encounter
--- OUTSIDE RECORDS SUMMARY | 2023-12-29 14:04 | XMS_ITS | Encounter Summary ---
[place] [address] Care Team Providers Care Toll Collector Supervisor Name Role Phone Lorna Bal APRN Primary Care Provider +1 -[phone] Encounter Details Date Type Department Care Team [...] PM EST Office Visit [place] [address] Hollie Ambriz MD [facility] [place] [address] documented as of this encounter Visit Diagnoses Not on filedocumented in this encounter Care Teams Toll Collector Supervisor Relationship Specialty Start Date End Date Lorna Bal APRN [address] [place] [address] PCP - General Family Medicine 05/27/18 documented as of this encounter
--- OUTSIDE RECORDS SUMMARY | 2023-12-29 14:04 | XMS_ITS | Encounter Summary ---
Author Organization [facility] [place] [address] Care Team Providers Care Blow Mold Machine Operator Name Role Phone Lorna Bal APRN Primary Care Provider +1 [phone] Reason for Referral * Diagnostic Test (Routine) - Closed Specialty Diagnoses / Procedures Referred By Contac t Referred To Contact Radiology Diagnoses Spinal abscess Procedures CT Lumbar Spine w Contrast George Tipton MD [facility] [place] [address] [facility] [place] [address] Referral ID Status Reason Start Date Expiration Date V isits Requested Visits Authorized [id number] Closed Specialty Service Requested 04/15/2023 10/14/2024 1 1 Reason for Visit * Diagnostic Test (Routine) - Closed Specialty Diagnoses / Procedures Referred By Contac t Referred To Contact Radiology Diagnoses Spinal abscess Procedures CT Lumbar Spine w Contrast George Tipton MD [facility] [place] [address] [facility] [place] [address] Referral ID Status Reason Start Date Expiration Date V isits Requested Visits Authorized [id number] Closed Specialty Service Requested 04/15/2023 10/14/2024 1 1 Encounter Details Date Type Department Care Team (Latest Contact Info) Description 04/16/2023 3:10 PM EST - 04/16/2023 11:59 PM EST Hospital [place] [address] [place] [address] Spinal abscess Discharge Disposition: Home [...] PM EST Office Visit [place] [address] Hollie Ambriz MD [facility] [place] [address] documented as of this encounter Procedures Procedure [...] who have questions please contact the health animal caregiver that requested your imaging first. ? [...] patients who have questions please contactthe health animal caregiver that requested your imaging first. Keri Trevino MD IM CT ORDERABLES documented [...] mLs documented in this encounter Care Teams Blow Mold Machine Operator Relationship Specialty Start Date End Date Lorna Bal APRN [address] [place] [address] PCP - General Family Medicine 05/27/18 documented as of this encounter
--- OUTSIDE RECORDS SUMMARY | 2023-12-29 14:04 | XMS_ITS | Encounter Summary ---
[place] [address] Care Team Providers Care Clinician Oncology Name Role Phone Lorna Bal APRN Primary Care Provider +1 [phone] Reason for Referral * Consultation (Routine) - Authorized Specialty Diagnoses / Procedures Referred By Contmonica t Referred To Contact Gastroenterology Diagnoses Constipation, unspecified constipation type constipation Lorna Bal APRN [address] [place] [address] [facility] [address] [place] [phone] Referral ID Status Reason Start Date Expiration Date Visits Requested Visits Authorized [id number] Authorized Consult, Test & Treat PCP Updated and/or Approved 01/30/2023 01/30/2024 12 12 Encounter Details Date Type Department Care Team (Latest Contact Info) Description 01/30/2023 Transcribe Orders eDH Incoming Referrals [phone] Lorna Bal APRN [address] [place], [place] [id number] Constipation, unspecified constipation type Social History Tobacco [...] PM EST Office [place] [address] Hollie Ambriz MD [facility] [place] [address] Scheduled Referrals Name Type Priority Associated Diagnoses Order Schedule Referral to Gastroenterology Outpatient Referral Routine Constipation, unspecified constipation type Ordered: 01/30/2023 documented as of this encounter Visit Diagnoses Diagnosis Constipation, unspecified constipation type documented in this encounter Care Teams Clinician Oncology Relationship Specialty Start Date End Date Lorna Bal APRN [address] [place] [address] PCP - General Family Medicine 05/27/18 documented as of this encounter
--- OUTSIDE RECORDS SUMMARY | 2023-12-29 14:04 | XMS_ITS | Encounter Summary ---
[place] [address] Care Team Providers Care Application Development Director Name Role Phone Lorna Bal APRN Primary Care Provider +1 [phone] Reason for Referral * Consultation (Urgent) - Closed Specialty Diagnoses / Procedures Referred By Contac t Referred To Contact Infectious Diseases Diagnoses Osteomyelitis, unspecified site, unspecified type Spinal cord abscess Lorna Bal APRN [address] [place] [address] [facility] [address] [place] [phone] Referral ID Status Reason Start Date Expiration Date V isits Requested Visits Authorized [id number] Closed Consult, Test & Treat PCP Updated and/or Approved 12/23/2022 12/23/2023 6 6 Encounter Details Date Type Department Care Team (Latest Contact Info) Description 12/23/2022 Transcribe Orders eDH Incoming Referrals [phone] Lorna Bal APRN [address] [place] [address] Osteomyelitis, unspecified site, unspecified type; [...] PM EST Office Visit [place] [address] Hollie Ambriz MD [facility] [place] [address] Scheduled Referrals Name Type Priority Associated Diagnoses Order Schedule Referral to Infectious Disease and [facility] Outpatient Referral Urgent Osteomyelitis, unspecified site, unspecified type Spinal cord abscess Ordered: 12/23/2022 documented as of this encounter Visit Diagnoses Diagnosis Osteomyelitis, unspecified site, unspecified type Spinal cord abscess Acute osteomyelitis, other specified site documented in this encounter Care Teams Application Development Director Relationship Specialty Start Date End Date Lorna Bal APRN [address] [place] [address] PCP - General Family Medicine 05/27/18 documented as of this encounter
--- OUTSIDE RECORDS SUMMARY | 2023-12-29 14:04 | XMS_ITS | Encounter Summary ---
Author Organization [facility] [place] [address] Care Team Providers Care Manager General Name Role Phone Lorna Bal APRN Primary Care Provider +1 [phone] Encounter Details Date Type Department Care Team (Late st Contact Info) Description 09/25/2022 Telephone [place] [address] Jamar Dasilva MD [facility] [place] [address] Social History Tobacco Use Types Packs/Day Years [...] status. Tana saw her neurosurgeon today in [place]. He feels that her symptoms are an allergic reaction to the current abx and requests that the abx be changed. The neurosurgeon said that they need to go in and remove a screw and clean out the area around the meredith in Tana's back. They do not want to do this at [facility] as it will require a plastic surgeon to close up due to Tana's skin being compromised. Javed relays that the neurosurgeon is trying to arrange surgery in [place] where a plastic surgeon is available. The [...] went over 70 she needed to go [facility] ED. Should she do that? No fever and WBC is normal. #4- Can Dr. Dasilva help to schedule an appt with radiology to have the drains put back in? documented in this encounter Plan of Treatment Upcoming Encounters Date Type Department Care Team (Late st Contact Info) Description 06/02/2024 12:30 PM EST Office [place] [address] Hollie Ambriz MD [facility] [place] [address] documented as of this encounter Visit Diagnoses Not on filedocumented in this encounter Care Teams Manager General Relationship Specialty Start Date End Date Lorna Bal APRN [address] [place] [address] PCP - General Family Medicine 05/27/18 documented as of this encounter
--- OUTSIDE RECORDS SUMMARY | 2023-12-29 14:04 | XMS_ITS | Encounter Summary ---
[place] [address] Care Team Providers Care Preschool Lead Teacher Name Role Phone Lorna Bal APRN Primary Care Provider [phone] [phone] Reason for Referral * Diagnostic Test (Routine) - Closed Specialty Diagnoses / Procedures Referred By Contac t Referred To Contact Radiology Diagnoses Spinal abscess Procedures IR All Drainage Procedures IR All Biopsy Procedures Jamar Dasilva MD [facility] [place] [address] [place] [address] Referral ID Status Reason Start Date Expiration Date V isits Requested Visits Authorized [id number] Closed Specialty Service Requested 09/26/2022 03/28/2024 1 1 Reason for Visit * Diagnostic Test (Routine) - Closed Specialty Diagnoses / Procedures Referred By Contac t Referred To Contact Radiology Diagnoses Spinal abscess Procedures IR All Drainage Procedures IR All Biopsy Procedures Jamar Dasilva MD [facility] [place] [address] [place] [address] Referral ID Status Reason Start Date Expiration Date V isits Requested Visits Authorized [id number] Closed Specialty Service Requested 09/26/2022 03/28/2024 1 1 Encounter Details Date Type Department Care Team (Latest Contact Info) Description 09/26/2022 12:13 PM EDT - 09/26/2022 11:59 PM EDT Hospital [place] [address] Jamar Dasilva MD [facility] [place] [address] Spinal abscess Discharge Disposition: Home [...] is during regular office hours, please call [phone]. If it is after regular office hours, or on weekends or holidays, please call [phone] and ask to speak to the Retail Planner stonecutter for Interventional Radiology. You have received medication [...] : 1995 AGE: 27 y.o. Address: [address] [place] [address] Phone: [phone] (home) Mobile: Telephone Information: Referring Provider: Jamar Dasilva REASON FOR VISIT: Paralumbar fluid aspiration Order Questions Answers Where will study be performed? [facility] Radiology [120] Is the patient on [...] [Transparent Dressings] Itching and Dermatitis Please use [id number] ??? Penicillins Pertinent PMH: Patient Active Problem [...] Questions Answers Where will study be performed? [facility] Radiology [120] Is the patient on [...] All Drainage Procedures 06/25/2022 Mich Martino MD [facility] INTERVENTIONL RAD ??? IR ALL DRAINAGE PROCEDURES 07/04/2022 IR All Drainage Procedures 07/04/2022 Mich Martino MD [facility] INTERVENTIONL RAD ??? IR ALL DRAINAGE PROCEDURES 07/24/2022 IR All Drainage Procedures 07/24/2022 Anurag Kumar MD [facility] INTERVENTIONL RAD ??? IR DRAIN CHECK/CHANGE/REMOVE 07/01/2022 IR Drain Check/Change/Remove 07/01/2022 Jamaal Jenkins, DO [facility] INTERVENTIONL RAD ??? IR DRAIN CHECK/CHANGE/REMOVE 08/11/2022 IR Drain Check/Change/Remove 08/11/2022 Piter Self MD [facility] INTERVENTIONL RAD ??? IR DRAIN CHECK/CHANGE/REMOVE 08/25/2022 IR Drain Check/Change/Remove 08/25/2022 Jamaal Jenkins, DO [facility] INTERVENTIONL RAD ??? IR DRAIN CHECK/CHANGE/REMOVE 09/10/2022 IR Drain Check/Change/Remove 09/10/2022 Mich Martino MD [facility] INTERVENTIONL RAD ??? PRO APPLY OF HIP CASTS, TWO LEGS 08/15/2010 CAST APPLICATION, HIP SPICA, BOTH LEGS performed by BARRERA OLIVER at [facility] OR ? ? PRO I&D, POST SPINE, LUMB/SACR/LUMBOSAC N/A 05/20/2014 @I & D, OPEN, DEEP ABSCESS, LUMBAR, SACRAL, LUMBOSACRAL performed by Freddy Isbell MD at [facility] OR ? ? PRO I&D, POST SPINE, LUMB/SACR/LUMBOSAC N/A 05/26/2014 @I & D, OPEN, DEEP ABSCESS, LUMBAR, SACRAL, LUMBOSACRAL performed by Freddy Isbell MD at [facility] MAIN OR ??? PRO IMPACT TOOTH REMOV COMP BONY N/A 06/14/2018 SURGICAL EXTRACTIONS, REMOVAL OF IMPACTED TOOTH, COMPLETELY BONY (WRVU 1.93) performed by Keith Cotton MD at [facility] OSC ??? PRO OSTEOTOMY FEMUR SHAFT/SUPRACONDY 08/15/2010 ??OSTEOTOMY, FEMUR SHAFT OR SUPRACONDYLAR W/O FIXATION performed by BARRERA OLIVER at [facility] OR ??? PRO RECONSTRUC HIP SOCKET, RESEC FEM HEAD 08/15/2010 ??ACETABULOPLASTY (GIRDLESTONE), RESECTION FEMORAL HEAD, BILATERAL performed by BARRERA OLIVER [facility] OR ??? PRO REMOVAL DEEP IMPLANT 08/15/2010 REMOVAL IMPLANT, DEEP, BRUNO performed by BARRERA OLIVER at [facility] OR ??? PRO REMOVAL ERUPTED TOOTH WITH ELEVATION OF MUCOPERIOSTEAL FLAP N/A 06/14/2018 SURGICAL EXTRACTIONS REQUIRING ELEVATION OF MUCOPERIOSTEAL FLAP AND REMOVAL OF BONE OR SECTION OF TOOTH (WRVU 1.09) performed by Keith Cotton MD at [facility] OSC ??? PRO REMOVE INFUSN DEVICE/PUMP N/A 05/11/2014 REMOVAL OF SPINE INFUSION PUMP performed by Jamaal Samuel MD at [facility] OR ??? PRO REMOVE SPINAL CANAL CATHETER N/A 05/11/2014 REMOVAL OF INTRATHECAL OR EPIDURAL CATHETER performed by Jamaal Samuel MD at [facility] OR ??? PRO REPR, DURAL/CSF LEAK, NOT REQ LAMINECTOMY N/A 05/20/2014 @REPAIR DURAL\CSF LEAK,NOT REQUIRING LAMINECTOMY performed by Freddy Isbell MD at [facility] OR Social History and Habits: Social History [...] PM EST Office [place] [address] Hollie Ambriz MD [facility] [place] [address] documented as of this encounter Procedures Procedure [...] present throughout the procedure. Jamar Dasilva MD [facility] IR ORDERABLES * Anaerobic Culture (09/26/2022 12:49 PM EDT) Anaerobic Culture No anaerobic organisms isolated [facility] Abscess STRUCTURE OF BACK OF TRUNK / Unknown 09/26/2022 12:49 PM EDT 09/26/2022 2:05 PM EDT Narrative Resulting Agency Comment Spec In Lab Jamar Dasilva MD MICROBIOLOGY - GE NERAL ORDERABLES Performing Organization Address City/[facility]/[place] [address] * Abscess/Wound Aspirate Culture (09/26/2022 12:49 PM EDT) Abscess/Wound Aspirate Culture No growth [facility] Gram Stain Few Neutrophils seen No microorganisms seen. [facility] Abscess STRUCTURE OF BACK OF TRUNK / Unknown 09/26/2022 12:49 PM EDT 09/26/2022 2:05 PM EDT Narrative Resulting Agency Comment Spec In Lab Jamar Dasilva MD MICROBIOLOGY - GE NERAL ORDERABLES Performing Organization Address [facility]/[place] [address] * Calcofluor White Stain (09/26/2022 12:49 PM EDT) Calcofluor Stain Calcofluor White Preparation: Negative [facility] Abscess 09/26/2022 12:4 9 PM EDT 09/26/2022 2:05 PM EDT Narrative Resulting Agency Comment Spec In Lab Jamar Dasilva MD MICROBIOLOGY - GE NERAL ORDERABLES Performing Organization Address City/[facility]/[place] [employer] de Phone Number [facility] [place] [address] * Fungus culture (09/26/2022 12:49 PM EDT) Fungus Culture No Fungus isolated [facility] Abscess 09/26/2022 12:4 9 PM EDT 09/26/2022 2:05 PM EDT Narrative Resulting Agency Comment Spec In Lab Jamar Dasilva MD MICROBIOLOGY - GE NERAL ORDERABLES Performing Organization Address City/[facility]/ZIP Co de Phone Number [facility] [place] [address] * AFB culture Back (09/26/2022 12:49 PM EDT) Acid Fast Bacilli Culture No Acid Fast Bacilli isolated [facility] Acid Fast Stain No Acid Fast Bacilli seen [facility] Back 09/26/2022 12:4 9 PM EDT 09/26/2022 2:05 PM EDT Narrative Resulting Agency Comment Spec In Lab Jamar Dasilva MD MICROBIOLOGY - [facility] ORDERABLES [facility] [place] [address] documented in this encounter Visit Diagnoses Diagnosis [...] mLs documented in this encounter Care Teams Preschool Lead Teacher Relationship Specialty Start Date End Date Lorna Bal APRN [address] [place] [address] PCP - General Family Medicine 05/27/18 documented as of this encounter
--- OUTSIDE RECORDS SUMMARY | 2023-12-29 14:04 | XMS_ITS | Encounter Summary ---
Author Organization [facility] [place] [address] Care Team Providers Care Nuclear Power Reactor Operator Name Role Phone Lorna Bal APRN Primary Care Provider +1 [phone] Reason for Referral * Diagnostic Test (Routine) - Closed Specialty Diagnoses / Procedures Referred By Contac t Referred To Contact Radiology Diagnoses Spinal abscess Procedures CT Lumbar Spine w Contrast Jamar Dasilva MD [facility] [place] [address] [facility] [place] [address] Referral ID Status Reason Start Date Expiration Date V isits Requested Visits Authorized [id number] Closed Specialty Service Requested 09/25/2022 03/27/2024 1 1 Encounter Details Date Type Department Care Team (Late st Contact Info) Description 09/25/2022 Orders Only [place] [address] Jamar Dasilva MD [facility] [place] [address] Spinal abscess Social History Tobacco [...] PM EST Office [place] [address] Hollie Ambriz MD [facility] DR [place] [address] documented as of this encounter Results * [...] who have questions please contact the health child care centre manager that requested your imaging first. ? [...] patients who have questions please contactthe health child care centre manager that requested your imaging first. Jamar Dasilva MD IMG CT ORDERABLES documented in this encounter Visit Diagnoses Diagnosis Spinal abscess Acute osteomyelitis, other specified site Spinal abscess Acute osteomyelitis, other specified site documented in this encounter Care Teams Nuclear Power Reactor Operator Relationship Specialty Start Date End Date Lorna Bal, CINDER PIT CRANE OPERATOR [address] [place] [address] PCP - General Family Medicine 05/27/18 documented as of this encounter
--- OUTSIDE RECORDS SUMMARY | 2023-12-29 14:05 | XMS_ITS | Encounter Summary ---
Author Organization [facility] [place] [address] Care Team Providers Care Installation Supervisor Name Role Phone Lorna Bal APRN Primary Care Provider +1 -[phone] Encounter Details Date Type Department Care Team (Late st Contact Info) Description 08/07/2022 Telephone [place] [address] Mesha Mckeon, RN Social History Tobacco Use [...] PM EST Office [place] [address] Hollie Ambriz MD [facility] [place] [address] documented as of this encounter Visit Diagnoses Not on filedocumented in this encounter Additional Health Concerns Infection Onset Date Last Indicated Resolved Time Enterovirus / Rhinovirus 07/28/2022 07/28/2022 8:09 PM EDT documented as of this encounter Care Teams Installation Supervisor Relationship Specialty Start Date End Date Lorna Bal APRN [address] [place] [address] PCP - General Family Medicine 05/27/18 documented as of this encounter
--- OUTSIDE RECORDS SUMMARY | 2023-12-29 14:05 | XMS_ITS | Encounter Summary ---
Author Organization [facility] [place] [address] Care Team Providers Care Mechanical Drafter Name Role Phone Lorna Bal APRN Primary Care Provider +1 -[phone] Encounter Details Date Type Department Care Team (Late st Contact Info) Description 09/03/2022 Telephone [place] [address] Halima García Social History Tobacco Use Types Packs/Day Years Used Date Smoking Tobacco: Never Smokeless Tobacco: Never Comments:NO SMOKERS IN THE H OME Alcohol Use Standard Drinks/Week Comments No 0 (1 standard drink = 0.6 oz pur e alcohol) [facility] Inpatient Questions Answer Date Recorded Does Anyone [...] return call to Dr. Ila Hadley from [facility]. Requesting a call back to discuss pt dx, 2nd option and how she can best assist with the pt's care. Dr. Hadley [phone]. Thanks Halima documented in this encounter Plan of Treatment Upcoming Encounters Date Type Department Care Team (Late st Contact Info) Description 06/02/2024 12:30 PM EST Office [place] [address] Hollie Ambriz MD [facility] [place] [address] documented as of this encounter Visit Diagnoses Not on filedocumented in this encounter Care Teams Mechanical Drafter Relationship Specialty Start Date End Date Lorna Bal APRN [address] [place] [address] PCP - General Family Medicine 05/27/18 documented as of this encounter
--- OUTSIDE RECORDS SUMMARY | 2023-12-29 14:05 | XMS_ITS | Encounter Summary ---
Author Organization [facility] [place] [address] Care Team Providers Care Space Systems Operations Superintendent Name Role Phone Lorna Bal APRN Primary Care Provider +1 -[phone] Reason for Referral * Diagnostic Test (Routine) - New Request Specialty Diagnoses / Procedures Referred By Contac t Referred To Contact Radiology Diagnoses Spinal abscess Procedures IR Drain Check/Change/Remove Hank Nunez PA [facility] [place] [address] [place] [address] Referral ID Status Reason Start Date Expiration Date Visits Requested Visits Authorized [id number] New Request Specialty Service Requested 08/21/2022 02/21/2024 1 1 Encounter Details Date Type Department Care Team (Late st Contact Info) Description 08/21/2022 Orders [place] [address] Hank Nunez PA [facility] [place] [address] Spinal abscess Social History Tobacco [...] PM EST Office [place] [address] Hollie Ambriz MD [facility] [place] [address] documented as of this encounter Results * [...] dislodged and replaced on 07/24. Additional 8 Djib[place]ian drain placed into adjacent L2/L3 collection at [...] throughout. ?? More Caudal Lumbar Drainage Catheter: Excavating Contractor fluoroscopic images were obtained. ??Contrast was injected through the catheter and repeat fluoroscopic images were obtained. The drainage catheter was left in place. ??A sterile dressing was applied. ?? More Cranial Lumbar Drainage Catheter: Excavating Contractor fluoroscopic images were obtained. ??Contrast was injected [...] sequela documented in this encounter Care Teams Space Systems Operations Superintendent Relationship Specialty Start Date End Date Lorna Bal, DIRECTOR PRODUCT SAFETY [address] [place] [address] PCP - General Family Medicine 05/27/18 documented as of this encounter
--- OUTSIDE RECORDS SUMMARY | 2023-12-29 14:05 | XMS_ITS | Encounter Summary ---
[place] [address] Care Team Providers Care Wet Crown Blocking Operator Name Role Phone Lorna Bal APRN Primary Care Provider +1 -[phone] Reason for Referral * Consultation (Routine) - Closed Specialty Diagnoses / Procedures Referred By Contac t Referred To Contact [facility] Diagnoses Spinal abscess Soft tissue abscess Bacteremia Sergey Keane MD [facility] [place] [address] [facility] [place] [address] Referral ID Status Reason Start Date Expiration Date V isits Requested Visits Authorized [id number] Closed Consult, Test & Treat 08/13/2022 08/13/2023 1 1 Encounter Details Date Type Department Care Team (Late st Contact Info) Description 08/13/2022 11:30 AM EDT Office [place] [address] Sergey Keane MD 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 [place] [address] Scheduled Referrals Name Type Priority Associated Diagnoses Order Schedule Referral to Orthopaedics Outpatient Referral Routine Spinal abscess Soft tissue abscess Bacteremia Ordered: 08/13/2022 documented as of this encounter Visit Diagnoses Diagnosis Spinal abscess Acute osteomyelitis, other specified site Soft tissue abscess Cellulitis and abscess of other specified site Bacteremia [facility] 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 Encounter for long-term (current) use of antibiotics documented in this encounter Care Teams Wet Crown Blocking Operator Relationship Specialty Start Date End Date Lorna Bal APRN [address] [place] [address] PCP - General Family Medicine 05/27/18 documented as of this encounter
--- OUTSIDE RECORDS SUMMARY | 2023-12-29 14:05 | XMS_ITS | Encounter Summary ---
[place] [address] Care Team Providers Care Head Bander And Liner Operator Name Role Phone Lorna Bal APRN Primary Care Provider +1 -[phone] Reason for Referral * Diagnostic Test (Routine) - New Request Specialty Diagnoses / Procedures Referred By Contac t Referred To Contact Radiology Diagnoses Spinal abscess Procedures IR Drain Check/Change/Remove Lucho Burciaga MD [facility] [place] [address] [place] [address] Referral ID Status Reason Start Date Expiration Date Visits Requested Visits Authorized [id number] New Request Specialty Service Requested 07/24/2022 01/25/2024 1 1 Reason for Visit * Diagnostic Test (Routine) - New Request Specialty Diagnoses / Procedures Referred By Contac t Referred To Contact Radiology Diagnoses Spinal abscess Procedures IR Drain Check/Change/Remove Lucho Burciaga MD [facility] [place] [address] [place] [place] [address] Referral ID Status Reason Start Date Expiration Date Visits Requested Visits Authorized [id number] New Request Specialty Service Requested 07/24/2022 01/25/2024 1 1 Encounter Details Date Type Department Care Team (Latest Contact Info) Description 08/11/2022 11:53 AM EDT - 08/11/2022 11:59 PM EDT Hospital [place] [address] Anurag Kumar MD [facility] [place] [address] Spinal abscess Discharge Disposition: Home Social History Tobacco Use Types Packs/Day Years Used Date Smoking Tobacco: Never Smokeless Tobacco: Never Comments:NO SMOKERS IN THE H OME Alcohol Use Standard Drinks/Week Comments No 0 (1 standard drink = 0.6 oz pur e alcohol) [facility] Inpatient Questions Answer Date Recorded [...] is during regular office hours, please call [phone]. If it is after regular office hours, or on weekends or holidays, please call [phone] and ask to speak to the Clinic Scheduler reservations sales supervisor for Interventional Radiology. XX You have received [...] : 1995 AGE: 27 y.o. Address: [address] [place] [address] Phone: [phone] (home) Mobile: Telephone Information: Referring Provider: Lucho [...] [Transparent Dressings] Itching and Dermatitis Please use [id number] ??? Penicillins Pertinent PMH: Patient Active Problem [...] HEAD, BILATERAL performed by BARRERA [place] [facility] OR ??? PRO REMOVAL DEEP IMPLANT 08/15/2010 REMOVAL IMPLANT, DEEP, BRUNO performed by BARRERA [place] at [facility] OR ??? [...] PM EST Office [place] [address] Hollie Ambriz MD [facility] DR [place] [address] documented as of this encounter Procedures Procedure [...] mg documented in this encounter Care Teams Head Bander And Liner Operator Relationship Specialty Start Date End Date Lorna Bal APRN [address] [place] [id number] PCP - General Family Medicine 05/27/18 documented as of this encounter
--- OUTSIDE RECORDS SUMMARY | 2023-12-29 14:05 | XMS_ITS | Encounter Summary ---
Author Organization [facility] [place] [address] Care Team Providers Care Heel Seat Sander Name Role Phone Lorna Bal APRN Primary Care Provider +1 -[phone] Reason for Referral * Diagnostic Test (Routine) [...] sequela Procedures IR Drain Check/Change/Remove Jamaal Jenkins, [facility] [place] [address] [facility] [place] [address] Referral ID Status Reason Start Date Expiration Date Visits Requested Visits Authorized [id number] Pending Review Specialty Service Requested 08/25/2022 02/26/2024 1 1 * Diagnostic Test (Routine) - New Request Specialty Diagnoses / Procedures Referred By Contac t Referred To Contact Radiology Diagnoses Spinal abscess Procedures IR Drain Check/Change/Remove Hank Nunez PA [facility] [place] [address] [place] [address] Referral ID Status Reason Start Date Expiration Date Visits Requested Visits Authorized [id number] New Request Specialty Service Requested 08/21/2022 02/21/2024 1 1 Reason for Visit * Diagnostic Test (Routine) - New Request Specialty Diagnoses / Procedures Referred By Contac t Referred To Contact Radiology Diagnoses Spinal abscess Procedures IR Drain Check/Change/Remove Hank Nunez PA [facility] [place] [address] [place] [address] Referral ID Status Reason Start Date Expiration Date Visits Requested Visits Authorized [id number] New Request Specialty Service Requested 08/21/2022 02/21/2024 1 1 Encounter Details Date Type Department Care Team (Latest Contact Info) Description 08/25/2022 12:57 PM EDT - 08/25/2022 11:59 PM EDT Hospital En[place] [address] Piter Self MD [facility] [place]ST[place] [address] Spinal abscess; Abscess; Contracture of left elbow; [...] is during regular office hours, please call [phone]. If it is after regular office hours, or on weekends or holidays, please call [phone] and ask to speak to the Color Specialist television host for Interventional Radiology. XX You have received [...] : 1995 AGE: 27 y.o. Address: [address] [place] [address] Phone: [phone] (home) Mobile: Telephone Information: Referring Provider: Hank Nunez REASON FOR VISIT: Order Questions Answers Where will study be performed? [facility] Radiology [120] Reason for exam and [...] [Transparent Dressings] Itching and Dermatitis Please use [id number] ??? Penicillins Pertinent PMH: Patient Active Problem [...] dislodged and replaced on 07/24. Additional 8 Chadian drain placed into adjacent L2/L3 collection at [...] All Drainage Procedures 06/25/2022 Mich Martino MD [facility] INTERVENTIONL RAD ??? IR ALL DRAINAGE PROCEDURES 07/04/2022 IR All Drainage Procedures 07/04/2022 Mich Martino MD [facility] INTERVENTIONL RAD ??? IR ALL DRAINAGE PROCEDURES 07/24/2022 IR All Drainage Procedures 07/24/2022 Anurag Kumar MD [facility] INTERVENTIONL RAD ??? IR DRAIN CHECK/CHANGE/REMOVE 07/01/2022 IR Drain Check/Change/Remove 07/01/2022 Jamaal Jenkins, DO [facility] INTERVENTIONL RAD ??? PRO APPLY OF HIP CASTS, TWO LEGS 08/15/2010 CAST APPLICATION, HIP SPICA, BOTH LEGS performed by BARRERA [place] at [facility] OR ? ? PRO I&D, POST SPINE, LUMB/SACR/LUMBOSAC N/A 05/20/2014 @I & D, OPEN, DEEP ABSCESS, LUMBAR, SACRAL, LUMBOSACRAL performed by Freddy Isbell MD at [facility] OR ? ? PRO I&D, POST SPINE, LUMB/SACR/LUMBOSAC N/A 05/26/2014 @I & D, OPEN, DEEP ABSCESS, LUMBAR, SACRAL, LUMBOSACRAL performed by Freddy Isbell MD at [facility] OR ??? PRO IMPACT TOOTH REMOV COMP BONY N/A 06/14/2018 SURGICAL EXTRACTIONS, REMOVAL OF IMPACTED TOOTH, COMPLETELY BONY (WRVU 1.93) performed by Keith Cotton MD at [facility] OSC ??? PRO OSTEOTOMY FEMUR SHAFT/SUPRACONDY 08/15/2010 ??OSTEOTOMY, FEMUR SHAFT OR SUPRACONDYLAR W/O FIXATION performed by BARRERA [place] at [facility] MAIN OR ??? PRO RECONSTRUC HIP SOCKET, RESEC FEM HEAD 08/15/2010 ??ACETABULOPLASTY (GIRDLESTONE), RESECTION FEMORAL HEAD, BILATERAL performed by BARRERA [place] [facility] MAIN OR ??? PRO REMOVAL DEEP IMPLANT 08/15/2010 REMOVAL IMPLANT, DEEP, BRUNO performed by BARRERA [place] at [facility] MAIN OR ??? PRO REMOVAL ERUPTED TOOTH WITH ELEVATION OF MUCOPERIOSTEAL FLAP N/A 06/14/2018 SURGICAL EXTRACTIONS REQUIRING ELEVATION OF MUCOPERIOSTEAL FLAP AND REMOVAL OF BONE OR SECTION OF TOOTH (WRVU 1.09) performed by Keith Cotton MD at [facility] OSC ??? PRO REMOVE INFUSN DEVICE/PUMP N/A 05/11/2014 REMOVAL OF SPINE INFUSION PUMP performed by Jamaal Samuel MD at [facility] MAIN OR ??? PRO REMOVE SPINAL CANAL CATHETER N/A 05/11/2014 REMOVAL OF INTRATHECAL OR EPIDURAL CATHETER performed by Jamaal Samuel MD at [facility] OR ??? PRO REPR, DURAL/CSF LEAK, NOT REQ LAMINECTOMY N/A 05/20/2014 @REPAIR DURAL\CSF LEAK,NOT REQUIRING LAMINECTOMY performed by Freddy Isbell MD at [facility] OR Medications: Current Outpatient [...] EST Office Visit [place] [address] Hollie Ambriz MD [facility] [place] [address] documented as of this encounter Procedures Procedure [...] dislodged and replaced on 07/24. Additional 8 Chadian drain placed into adjacent L2/L3 collection at [...] throughout. ?? More Caudal Lumbar Drainage Catheter: Refueling Ramp Attendant fluoroscopic images were obtained. ??Contrast was injected through the catheter and repeat fluoroscopic images were obtained. The drainage catheter was left in place. ??A sterile dressing was applied. ?? More Cranial Lumbar Drainage Catheter: Refueling Ramp Attendant fluoroscopic images were obtained. ??Contrast was [...] mLs documented in this encounter Care Teams Heel Seat Sander Relationship Specialty Start Date End Date Lorna Bal APRN [address] [place] [address] PCP - General Family Medicine 05/27/18 documented as of this encounter
--- OUTSIDE RECORDS SUMMARY | 2023-12-29 14:05 | XMS_ITS | Encounter Summary ---
Author Organization [facility] [place] [address] Care Team Providers Care Cake Knocker Name Role Phone Lorna Bal APRN Primary Care Provider +1 -[phone] Encounter Details Date Type Department Care Team (Latest Contact Info) Description 08/25/2022 Trans[place] [phone] Lorna Bal APRN [address] [place], [place] [id number] Escherichia coli septicemia; Intraspinal abscess; Spinal cord [...] PM EST Office [place] [address] Hollie Ambriz MD [facility] [address] [place] [address] documented as of this encounter Visit Diagnoses Diagnosis Escherichia coli septicemia Septicemia due to Escherichia coli (E. coli) Intraspinal abscess Spinal cord abscess Acute osteomyelitis, other specified site documented in this encounter Care Teams Cake Knocker Relationship Specialty Start Date End Date Lorna Bal APRN [address] [place] [address] PCP - General Family Medicine 05/27/18 documented as of this encounter
--- OUTSIDE RECORDS SUMMARY | 2023-12-29 14:05 | XMS_ITS | Encounter Summary ---
Author Organization [facility] [place] [address] Care Team Providers Care Vice President Of Development Name Role Phone Lorna Bal APRN Primary Care Provider +1 -[phone] Encounter Details Date Type Department Care Team (Late st Contact Info) Description 09/08/2022 Telephone [place] [address] Valentina Stanton Social History Tobacco Use Types [...] PM EST Office [place] [address] Hollie Ambriz MD [facility] [place] [address] documented as of this encounter Visit Diagnoses Not on filedocumented in this encounter Care Teams Vice President Of Development Relationship Specialty Start Date End Date Lorna Bal, WEB CONTENT COORDINATOR [address] [place] [address] PCP - General Family Medicine 05/27/18 documented as of this encounter
--- OUTSIDE RECORDS SUMMARY | 2023-12-29 14:05 | XMS_ITS | Encounter Summary ---
Author Organization [facility] [place] [address] Care Team Providers Care Audio Visual Tech Name Role Phone Lorna Bal APRN Primary Care Provider +1 -[phone] Encounter Details Date Type Department Care Team (Late st Contact Info) Description 08/15/2022 Telephone [place] [address] Neva Thorpe, RN Social History Tobacco Use [...] 08/15/2022 2:26 PM EDT Pictures received via [facility] of Tana's back wound. This RN [...] PM EST Office [place] [address] Hollie Ambriz MD [facility] [place] [address] documented as of this encounter Visit Diagnoses Not on filedocumented in this encounter Care Teams Audio Visual Tech Relationship Specialty Start Date End Date Lorna Bal APRN [address] [place] [address] PCP - General Family Medicine 05/27/18 documented as of this encounter
--- OUTSIDE RECORDS SUMMARY | 2023-12-29 14:05 | XMS_ITS | Encounter Summary ---
Author [facility] [place] [address] Care Team Providers Care Child Care Sitter Name Role Phone Lorna Bal APRN Primary Care Provider +1 -[phone] Encounter Details Date Type Department Care Team (Late st Contact Info) Description 08/06/2022 Telephone [place] [address] Halima García Social History Tobacco Use Types [...] - 08/06/2022 8:35 AM EDT Shonna from [facility] called. Pt's home healthcare orders need to be restarted and orders need to be placed for weekly lab draw and drainage care. documented in this encounter Plan of Treatment Upcoming Encounters Date Type Department Care Team (Late st Contact Info) Description 06/02/2024 12:30 PM EST Office [place] [address] Hollie Ambriz MD [facility] [place] [address] documented as of this encounter Visit Diagnoses Not on filedocumented in this encounter Additional Health Concerns Infection Onset Date Last Indicated Resolved Time Enterovirus / Rhinovirus 07/28/2022 07/28/2022 8:09 PM EDT documented as of this encounter Care Teams Child Care Sitter Relationship Specialty Start Date End Date Lorna Bal APRN [address] [place] [address] PCP - General Family Medicine 05/27/18 documented as of this encounter
--- OUTSIDE RECORDS SUMMARY | 2023-12-29 14:05 | XMS_ITS | Encounter Summary ---
Author Organization [facility] [place] [address] Care Team Providers Care Accident Examiner Name Role Phone Lorna Bal APRN Primary Care Provider +1 -[phone] Encounter Details Date Type Department Care Team (Late st Contact Info) Description 08/19/2022 Telephone [place] [address] Lilli Joy APRN [facility] [place] [address] Social History Tobacco Use Types Packs/Day Years Used Date Smoking Tobacco: Never Smokeless Tobacco: Never Comments:NO SMOKERS IN THE H OME Alcohol Use Standard Drinks/Week Comments No 0 (1 standard drink = 0.6 oz pur e alcohol) REPLACED BY [facility] Inpatient Questions Answer Date Recorded Does [...] Notes * Telephone Encounter - Lilli Joy, ELECTRONICS PROCESSOR - 08/19/2022 8:59 PM EDT S: Received [...] PM EST Office [place] [address] Hollie Ambriz MD [facility] [place] [address] documented as of this encounter Visit Diagnoses Not on filedocumented in this encounter Care Teams Accident Examiner Relationship Specialty Start Date End Date Lorna Bal APRN [address] [place] [address] PCP - General Family Medicine 05/27/18 documented as of this encounter
--- OUTSIDE RECORDS SUMMARY | 2023-12-29 14:05 | XMS_ITS | Encounter Summary ---
Author Organization [facility] Address [facility] [place] [address] Care Team Providers Care Arcgis Developer Name Role Phone Lorna Bal APRN Primary Care Provider +1 -[phone] Encounter Details Date Type Department Care Team (Late st Contact Info) Description 08/07/2022 1:00 PM EDT TH Visit (TeleHealth) [place] [address] Lilli Joy APRN [facility] [place] [address] Spinal abscess; Acute hematogenous osteomyelitis, unspecified site; [...] this encounter Progress Notes * Lilli Joy, DETECTIVE SUPERVISOR - 08/07/2022 1:00 PM EDT .. INFECTIOUS [...] [Transparent Dressings] Itching and Dermatitis Please use [id number] ??? Penicillins Physical Exam: Deferred Labs: Lab [...] PM EST Office [place] [address] Hollie Ambriz MD [facility] [place] [address] documented as of this encounter Visit [...] documented as of this encounter Care Teams Arcgis Developer Relationship Specialty Start Date End Date Lorna Bal APRN [address] [place] [address] PCP - General Family Medicine 05/27/18 documented as of this encounter
--- OUTSIDE RECORDS SUMMARY | 2023-12-29 14:05 | XMS_ITS | Encounter Summary ---
[place] [address] Care Team Providers Care Borderer Name Role Phone Lorna Bal APRN Primary Care Provider +1 -[phone] Encounter Details Date Type Department Care Team (Late st Contact Info) Description 08/25/2022 Transcribe [place] [address] Lorna Bal APRN [address] [place], [place] [address] Social History Tobacco Use Types Packs/Day Years [...] PM EST Office [place] [address] [facility] [address] [place] [address] documented as of this encounter Visit Diagnoses Not on filedocumented in this encounter Care Teams Borderer Relationship Specialty Start Date End Date Lorna Bal APRN [address] [place] [address] PCP - General Family Medicine 05/27/18 documented as of this encounter
--- OUTSIDE RECORDS SUMMARY | 2023-12-29 14:05 | XMS_ITS | Encounter Summary ---
[place] [address] Care Team Providers Care Credit Card Analyst Name Role Phone Lorna Bal APRN Primary Care Provider +1 -[phone] Encounter Details Date Type Department Care Team (Latest Contact Info) Description 08/25/2022 Travel Social History Tobacco Use Types Packs/Day Years Used Date Smoking Tobacco: Never Smokeless Tobacco: Never Comments:NO SMOKERS IN THE H OME Alcohol Use Standard Drinks/Week Comments No 0 (1 standard drink = 0.6 oz pur e alcohol) [facility] Inpatient Questions Answer Date Recorded [...] EST Office Visit [place] [address] Hollie Ambriz MD [facility] [place] [address] documented as of this encounter Visit Diagnoses Not on filedocumented in this encounter Care Teams Credit Card Analyst Relationship Specialty Start Date End Date Lorna Bal APRN [address] [place] [address] PCP - General Family Medicine 05/27/18 documented as of this encounter
--- OUTSIDE RECORDS SUMMARY | 2023-12-29 14:05 | XMS_ITS | Encounter Summary ---
Author Organization [facility] [place] [address] Care Team Providers Care Clip On Sunglasses Inspector Name Role Phone Lorna Bal APRN Primary Care Provider +1 -[phone] Encounter Details Date Type Department Care Team (Late st Contact Info) Description 09/08/2022 Tele[place] [address] Sergey Keane MD [facility] [address] Social History Tobacco Use Types Packs/Day Years [...] moving forward. Patient was recently seen at [facility] for a second opinion. I had the opportunity to speak with the attending physician Dr Patel on 09/03. At the time we discussed Mrs Cavazos clinical course and therapies provided here at [facility]. After our conversation she mentioned that she [...] Plan for now is to see Mrs aCvazos in ID clinic next Thursday when we will reassess current And future plans. Sergey Doan MD Infectious Disease Fellow documented in this encounter Plan of Treatment Upcoming Encounters Date Type Department Care Team (Late st Contact Info) Description 06/02/2024 12:30 PM EST Office [place] [address] Hollie Ambriz MD [facility] [address] documented as of this encounter Visit Diagnoses Not on filedocumented in this encounter Care Teams Clip On Sunglasses Inspector Relationship Specialty Start Date End Date Lorna Bal APRN [address] [place] [address] PCP - General Family Medicine 05/27/18 documented as of this encounter
--- OUTSIDE RECORDS SUMMARY | 2023-12-29 14:05 | XMS_ITS | Encounter Summary ---
[place] [address] Care Team Providers Care Social Media Developer Name Role Phone Lorna Bal APRN Primary Care Provider +1 -[phone] Encounter Details Date Type Department Care Team [...] PM EST Office [place] [address] Hollie Ambriz MD [facility] [place] [address] documented as of this encounter Visit Diagnoses Not on filedocumented in this encounter Care Teams Social Media Developer Relationship Specialty Start Date End Date Lorna Bal APRN [address] [place] [address] PCP - General Family Medicine 05/27/18 documented as of this encounter
--- OUTSIDE RECORDS SUMMARY | 2023-12-29 14:05 | XMS_ITS | Encounter Summary ---
[place] [address] Care Team Providers Care Stratigraphy Teacher Name Role Phone Lorna Bal APRN Primary Care Provider +1 [phone] Encounter Details Date Type Department Care Team (Latest Contact Info) Description 08/11/2022 2:40 PM EDT Laboratory Appointment Lab [address] [phone] Spinal abscess; Bacteremia; E coli infection; Soft [...] PM EST Office Visit Infectious Disease at [facility] [place] [phone] Hollie Ambriz MD [facility] INFECTIOUS [place] [address] documented as of this encounter Procedures Procedure [...] 2:53 PM EDT) Neutrophil % 66.1 % [facility] Neutrophil Absolute 4.09 1.70 - 6.10 x10(3)/[facility] LABORATORY Lymph % 26.8 % [facility]ORY Lymphocytes Abs 1.7 0.9 - 3.2 x10(3)/[facility] LABORATORY Monocyte % 5.7 % [facility] ITAL LABORATORY Monocyte Abs 0.4 0.3 - 0.9 x10(3)/[facility] LABORATORY Eos % 1.1 % [facility] LABOR[facility] Eosinophils Abs 0.1 0.0 - 0.4 x10(3)/[facility] LABORATORY Basophil % 0.3 % [facility] Baso Absolute 0.0 0.0 - 0.1 x10(3)/mcL [facility] Immature Gran % 0.00 % [facility] Comment: Immature granulocytes(IG's)percentage and absolute count will include metamyelocytes, myelocytes, and promyelocytes. Blood smears from CBCs yielding IG's will be scanned manually for concordance. If this scan disagrees with the automated IG or if promyelocytes are noted, a manual differential will be performed. Immature Gran Absolute 0.00 0.00 - 0.04 x10(3)/[facility] LABORATORY Blood 08/11/2022 2:53 PM EDT 08/11/2022 3:21 PM EDT Narrative Resulting Agency Comment Spec In Lab Jamaal Estrada MD HEMATOLOGY ORDERABL ES [facility] [place] [address] * (ABNORMAL) Hemogram (08/11/2022 2:53 PM EDT) White Blood Cell 6.2 4.0 - 9.5 x10(3)/mc L [facility] Red Blood Cell 4.81 4.00 - 5.21 x10(6)/mc L [facility] Hemoglobin 12.1 11.7 - 15.5 g/dL [facility] Hematocrit 37.4 35.7 - 45.8 % [facility] Mean Cell Volume 77.8(L) 82.6 - 94.4 fL [facility] Mean Cell Hemoglobin 25.2(L) 27.1 - 32.0 pg [facility] Mean Cell Hemoglobin Concentration 32.4 31.7 - 35.0 g/dL [facility] Platelet 387(H) 145 - 357 x10(3)/mc L [facility] RDW Standard Deviation 50.0(H) 37.0 - 46.0 fL [facility] RDW coefficient of variation 17.9(H) 11.5 - 14.1 % [facility] Mean Platelet Volume 9.6 7.6 - 12.9 fL [facility] NRBC% auto 0.0 % [facility] ITAL [facility] NRBC Absolute 0.000 0.000 - 0.000 x10(3)/mc L [facility] Blood 08/11/2022 2:53 PM EDT 08/11/2022 3:21 PM EDT Narrative Resulting Agency Comment Spec In Lab Jamaal Estrada MD HEMATOLOGY ORDERABL ES [facility] [place] [address] * (ABNORMAL) Comprehensive metabolic panel (non-fasting) (08/11/2022 2:53 PM EDT) Glucose 75 65 - 199 mg/dL [facility] Comment:Diabetes: >=200 mg/d L plus symptoms Blood Urea Nitrogen 9 8 - 18 mg/dL [facility] Creatinine 0.25(L) 0.70 - 1.20 mg/dL [facility] Sodium 141 135 - 145 mmol/L [facility] Potassium 4.0 3.5 - 5.0 mmol/L [facility] Comment: Please note: ??Patients with WBC >100,000 may have falsely elevated Potassium levels. ??For accurate Potassium quantification in these patients send serum separator tube (gold top) for subsequent determinations. ??Contact the Clinical Chemistry Laboratory if there are any questions. Chloride 105 98 - 107 mmol/L [facility] Carbon Dioxide 24 22 - 31 mmol/L [facility] Anion Gap 12 5 - 15 mmol/L [facility] Calcium 9.4 8.5 - 10.5 mg/dL [facility] Protein, Total 8.0 6.1 - 8.0 g/dL [facility] Albumin 4.2 3.2 - 5.2 g/dL [facility] Aspartate Aminotransferase 19 0 - 30 unit/L [facility] Alanine Aminotransferase 26 0 - 30 unit/L [facility] Alkaline Phosphatase 211(H) 35 - 105 unit/L [facility] Bilirubin, Total <0.2(L) 0.2 - 1.3 mg/dL [facility] Est Glomerular Filtration Rate 154 >=60 mL/min/1. 73 m?? [facility] Comment: This patient's estimated GFR was [...] MD CHEMISTRY ORDERABLE S Performing Organization Address City/[facility]/ZIP Co de Phone Number [facility] [place] [address] * (ABNORMAL) CRP, acute inflammation (08/11/2022 2:53 PM EDT) C-Reactive Protein 45.8(H) <=4.9 mg/L [facility] Blood 08/11/2022 2:53 PM EDT 08/11/2022 3:21 PM EDT Narrative Resulting Agency Comment Spec In Lab Jamaal Estrada MD CHEMISTRY ORDERABLE S [facility] [place] [address] documented in this encounter Visit Diagnoses Diagnosis Spinal abscess Acute osteomyelitis, other specified site Bacteremia E coli infection Other and unspecified Escherichia coli (E. coli) Soft tissue abscess Cellulitis and abscess of other specified site Muscle abscess Other disorder of muscle, ligament, and fascia documented in this encounter Care Teams Stratigraphy Teacher Relationship Specialty Start Date End Date Lorna Bal APRN [address] [place] [address] PCP - General Family Medicine 05/27/18 documented as of this encounter
--- OUTSIDE RECORDS SUMMARY | 2023-12-29 14:05 | XMS_ITS | Encounter Summary ---
Author Organization [facility] [place] [address] Care Team Providers Care Spark Plug Assembler Name Role Phone Lorna Bal APRN Primary Care Provider [phone] [phone] Encounter Details Date Type Department Care Team (Late st Contact Info) Description 09/05/2022 Telephone [place] [phone] Valentina Stanton Social History Tobacco Use Types [...] Office [place] [address] Hollie Ambriz MD [facility] [address] [place] [address] documented as of this encounter Visit Diagnoses Not on filedocumented in this encounter Care Teams Spark Plug Assembler Relationship Specialty Start Date End Date Lorna Bal, MEDICAL BILLING MANAGER [address] [place] [address] PCP - General Family Medicine 05/27/18 documented as of this encounter
--- OUTSIDE RECORDS SUMMARY | 2023-12-29 14:05 | XMS_ITS | Encounter Summary ---
[place] [address] Care Team Providers Care Ladle Patcher Name Role Phone Lorna Bal APRN Primary Care Provider +1 -[phone] Encounter Details Date Type Department Care Team [...] PM EST Office Visit [place] [phone] Hollie Ambriz MD [facility] [place] [address] documented as of this encounter Visit Diagnoses Not on filedocumented in this encounter Care Teams Ladle Patcher Relationship Specialty Start Date End Date Lorna Bal APRN [address] [place] [address] PCP - General Family Medicine 05/27/18 documented as of this encounter
--- OUTSIDE RECORDS SUMMARY | 2023-12-29 14:05 | XMS_ITS | Encounter Summary ---
Author Organization [facility] [place] [address] Care Team Providers Care Quality Tester Name Role Phone Lorna Bal APRN Primary Care Provider +1 -[phone] Encounter Details Date Type Department Care Team (Late st Contact Info) Description 08/15/2022 Telephone [place] [address] Shawn Woodard MD [facility] [place] [address] Social History Tobacco Use Types Packs/Day Years [...] antibiotics for life); and also concernedabout a leech lake of erythema which she had noted around [...] may not be curable (hence discussion about shelter antibiotics), especially with the remaining screw, which [...] PM EST Office [place] [address] Hollie Ambriz MD [facility] [place] [address] documented as of this encounter Visit Diagnoses Not on filedocumented in this encounter Care Teams Quality Tester Relationship Specialty Start Date End Date Lorna Bal APRN [address] [place] [address] PCP - General Family Medicine 05/27/18 documented as of this encounter
--- OUTSIDE RECORDS SUMMARY | 2023-12-29 14:05 | XMS_ITS | Encounter Summary ---
Author Organization [facility] [place] [address] Care Team Providers Care Supervisor Instrument Maintenance Name Role Phone Lorna Bal APRN Primary Care Provider +1 -[phone] Encounter Details Date Type Department Care Team (Late st Contact Info) Description 09/03/2022 Notes Only Infectious Disease at [facility] [place] [phone] Mesha Mckeon, RN Social History Tobacco Use [...] RN - 09/03/2022 11:59 PM EDT This advertising copywriter received called from patient's mom about concerns about her daughter's drains. She reported that they have stopped draining and was wondering how long we were keeping it in. I instructed her to call IR for a drain check. Mom verbalized understanding. She also stated that she took her to [place] for a second opinion. That doctor in [place] was concerned about pt and wanted a call back as well. This advertising copywriter sent inbasket and routed secretaries notes from the Doctor in [place] to Shawn Woodard. Mom is very concerned about her daughters infection. Her end date is on 09/04. documented in this encounter Plan of Treatment Upcoming Encounters Date Type Department Care Team (Late st Contact Info) Description 06/02/2024 12:30 PM EST Office [place] [address] Hollie Ambriz MD [facility] [address] [place] [address] documented as of this encounter Visit Diagnoses Not on filedocumented in this encounter Care Teams Supervisor Instrument Maintenance Relationship Specialty Start Date End Date Lorna Bal APRN [address] [place] [address] PCP - General Family Medicine 05/27/18 documented as of this encounter
--- OUTSIDE RECORDS SUMMARY | 2023-12-29 14:05 | XMS_ITS | Encounter Summary ---
[place] [address] Care Team Providers Care Radio Television Announcer Name Role Phone Lorna Bal APRN Primary Care Provider +1 -[phone] Encounter Details Date Type Department Care Team [...] PM EST Office Visit [place] [phone] Hollie Ambriz MD [facility] [place] [address] documented as of this encounter Visit Diagnoses Not on filedocumented in this encounter Care Teams Radio Television Announcer Relationship Specialty Start Date End Date Lorna Bal APRN [address] [place] [address] PCP - General Family Medicine 05/27/18 documented as of this encounter
--- OUTSIDE RECORDS SUMMARY | 2023-12-29 14:05 | XMS_ITS | Encounter Summary ---
[place] [address] Care Team Providers Care Retail Assistant Name Role Phone Lorna Bal APRN Primary Care Provider +1 -[phone] Encounter Details Date Type Department Care Team (Latest Contact Info) Description 08/25/2022 4:30 PM EDT Laboratory Appointment Lab [address] [phone] Spinal abscess; Bacteremia; E coli infection; Soft [...] PM EST Office Visit [place] [address] Hollie Ambriz MD [facility] [place] [address] documented as of this encounter Visit Diagnoses Diagnosis Spinal abscess Acute osteomyelitis, other specified site Bacteremia E coli infection Other and unspecified Escherichia coli (E. coli) Soft tissue abscess Cellulitis and abscess of other specified site Muscle abscess Other disorder of muscle, ligament, and fascia documented in this encounter Care Teams Retail Assistant Relationship Specialty Start Date End Date Lorna Bal APRN [address] [place] [address] PCP - General Family Medicine 05/27/18 documented as of this encounter
--- OUTSIDE RECORDS SUMMARY | 2023-12-29 14:05 | XMS_ITS | Encounter Summary ---
Author Organization [facility] [place] [address] Care Team Providers Care Diving Fisher Name Role Phone Lorna Bal APRN Primary Care Provider +1 -[phone] Reason for Referral * Diagnostic Test (Routine) - Closed Specialty Diagnoses / Procedures Referred By Contac t Referred To Contact Radiology Diagnoses Abscess Procedures CT Lumbar Spine w [place] [address] [place] [address] Referral ID Status Reason Start Date Expiration Date V isits Requested Visits Authorized [id number] Closed Specialty Service Requested 08/12/2022 02/12/2024 1 1 Reason for Visit * Diagnostic Test (Routine) - Closed Specialty Diagnoses / Procedures Referred By Contac t Referred To Contact Radiology Diagnoses Abscess Procedures CT Lumbar Spine w [place]rast [place] [address] [facility] [place] [address] Referral ID Status Reason Start Date Expiration Date V isits Requested Visits Authorized [id number] Closed Specialty Service Requested 08/12/2022 02/12/2024 1 1 Encounter Details Date Type Department Care Team (Latest Contact Info) Description 08/13/2022 8:33 AM EDT - 08/13/2022 11:59 PM EDT Hospital [place] [address] [place] [address] Abscess Discharge Disposition: Home Social [...] EST Office Visit Infectious Disease at [facility] [place] [address] Hollie Ambriz MD [facility] [place] [address] documented as of this encounter Procedures Procedure [...] who have questions please contact the health lead caregiver that requested your imaging first. ? Electronically signed by: Jamaal Villafuerte [facility] ([phone]), at 08/13/2022 4:52 PM Narrative 08/13/2022 4:52 [...] patients who have questions please contactthe health lead caregiver that requested your imaging first. Electronically signed by: Jamaal Villafuerte [facility]([phone]), at 08/13/2022 4:52 PM Jamshid Collins MD [...] mLs documented in this encounter Care Teams Diving Fisher Relationship Specialty Start Date End Date Lorna Bal APRN [address] [place] [address] PCP - General Family Medicine 05/27/18 documented as of this encounter
--- OUTSIDE RECORDS SUMMARY | 2023-12-29 14:05 | XMS_ITS | Encounter Summary ---
Author Organization [facility] [place] [address] Care Team Providers Care International Recruiter Name Role Phone Lorna Bal APRN Primary Care Provider +1 -[phone] Reason for Referral * Home Health Care (Routine) - Denied Specialty Diagnoses / Procedures Referred By Contac t Referred To Contact Diagnoses Spinal abscess [place] [address] [facility] [address] [place] [id number] Referral ID Status Reason Start Date Expiration Date V isits Requested Visits Authorized [id number] Denied Consult, Test & Treat 08/06/2022 08/06/2023 999 0 Encounter Details Date Type Department Care Team (Late st Contact Info) Description 08/06/2022 [place] [address] Curt Torres MD [place], [place] [id number] Spinal abscess Social History Tobacco Use Types [...] PM EST Office [place] [address] Hollie Ambriz MD [facility] [place] [address] Scheduled Referrals Name Type Priority Associated Diagnoses [...] documented as of this encounter Care Teams International Recruiter Relationship Specialty Start Date End Date Lorna Bal APRN [address] [place] [address] PCP - General Family Medicine 05/27/18 documented as of this encounter
--- OUTSIDE RECORDS SUMMARY | 2023-12-29 14:06 | XMS_ITS | Encounter Summary ---
[place] [address] Care Team Providers Care Driller Multiple Spindle Name Role Phone Lorna Bal APRN Primary Care Provider [phone] Reason for Referral * Diagnostic Test (Routine) - New Request Specialty Diagnoses / Procedures Referred By Contac t Referred To Contact Radiology Diagnoses Spinal abscess Procedures IR Drain Check/Change/Remove Lucho Burciaga MD [facility] [place] [address] [place] [address] Referral ID Status Reason Start Date Expiration Date Visits Requested Visits Authorized [id number] New Request Specialty Service Requested 07/24/2022 01/25/2024 1 1 Reason for Visit * Reason Comments Wound Check * Auth/Cert (Routine) Specialty Diagnoses / Procedures Referred By Contac t Referred To Contact Diagnoses Abscess Procedures EMERGENCY Eddi Samuel MD [facility] [address] [facility] Referral ID Status Reason Start Date Expiration Date Visits Re quested Visits Authorized [id number] 1 1 Encounter Details Date Type Department Care Team (Latest Contact Info) Description 07/22/2022 5:43 PM EDT - 08/01/2022 5:12 PM EDT Hospital Encounter Medical Specialites Unit Level 1 [place] [id number] Alek Tavares MD [facility] [address] [place] [address] Eddi Váz[place] [address] [place] [address] [place] [address] 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 Dx); QT prolongation; Abscess [...] Tana Cavazos Patient Age: 27 y.o. Language: Wolof Race: White Ethnicity: Not nor Admit date: [...] please contact your inpatient physician through the [facility] Water Filterer Helper . Issues afterhours and on weekends will [...] [Transparent Dressings] Itching and Dermatitis Please use [id number] ??? Penicillins Immunizations Given this Hospitalization: Immunization History Administered Date(s) Administered ??? Influenza Vaccine (Novel) [id number], Injectable 02/25/2009 ??? Influenza Vaccine w/Preservative, Split [...] her to stop it. She might require drywaller antibiotics to suppress infection. At some point [...] Center 08/07/2022 1:00 PM Lilli Joy APRN [facility] ID [id number] [facility] 08/11/2022 12:50 PM [facility] IR ROOM 6 IR [facility] Rad 08/13/2022 11:30 AM Sergey Keane MD [facility] ID 5C [facility] Non-[facility] Follow-up Appointments: N/A Your Inpatient Doctor(s) at [facility]: ALEK TAVARES, ERNESTO MCCARTHY, EDDI BELL, JODY Kwong For questions regarding issues relating to your hospitalization on the Hospital Medicine Service, please contact your inpatient physician through the [facility] Water Filterer Helper [phone]. Issues after hours and on weekends will be handled by the Hospitalist staff on-call. Your Primary Care Provider Lorna Bal APRN [phone] General Instructions INTERVENTIONAL RADIOLOGY DRAIN CARE INSTRUCTIONS [...] is during regular office hours, please call [phone]. If it is after regular office hours, or on weekends or holidays, please call [phone] and ask to speak to the Sail Repair Person elementary special education teacher for Interventional Radiology. XX You have received [...] PM Lilli Joy APRN Infectious Disease at [facility] Arrive at: Home [phone] Please do not come in for this visit. Your provider will call you at the number you provided. 08/11/2022 12:50 PM [facility] IR ROOM 6 Radiology at [facility] Arrive at: 3Z RADIOLOGY [phone] Please expect a call from a radiology nurse within 3 days of your exam, you will need to follow theinstructions given at that time. 08/13/2022 11:30 AM Sergey Keane MD Infectious Disease at [facility] Arrive at: Speech Language Pathologist Travel Area [phone] Future Orders Complete By Expires IR Drain Check/Change/Remove [[id number] Custom] 08/07/2022 (Approximate) 02/06/2023 Process Instructions: Scheduling Instructions: Comments: Questions: Where will study be performed?: [facility] Radiology Reason for exam and clinical [...] ?: No CT Lumbar Spine w Contrast [[id number] Custom] 08/08/2022 02/07/2023 Process Instructions: Scheduling Instructions: Questions: Clinical information / foster questions for radiologist: eval for interval changes in abscesses s/p drain placement Where will study be performed?: [facility] Radiology Is the patient ?: No Stat read required?: Does patient require sedation?: GA rationale: Date of injury if applicable: Recurring Lab Work Interval Expires CBC (with Diff) [[id number] Custom] Once a week until 08/02/2023 08/02/2023 Process Instructions: INCLUDES: WBC, RBC, Hgb, Hct, Platelets, RBC Indices and Differential Scheduling Instructions: Comments: Questions: Comprehensive metabolic panel (non-fasting) [LAB17 Custom] Once a week until 08/02/2023 08/02/2023 Process Instructions: INCLUDES: Calcium, T Protein, Albumin, AST, ALT, Alk Phos, T Bili, BUN, Creat, GFR, Glucose, Lytes. Scheduling Instructions: Comments: Questions: CRP, acute inflammation [[id number] Custom] Once a week until 08/02/2023 08/02/2023 [...] is during regular office hours, please call [phone]. If it is after regular office hours, or on weekends or holidays, please call [phone] and ask to speak to the Sail Repair Person elementary special education teacher for Interventional Radiology. XX You have received [...] her to stop it. She might require snf antibiotics to suppress infection. At some point [...] Center 08/07/2022 1:00 PM Lilli Joy APRN [facility] ID 5C [facility] 08/11/2022 12:50 PM [facility] IR ROOM 6 [facility] Rad 08/13/2022 11:30 AM Sergey Keane MD [facility] ID 5C [facility] Non-[facility] Follow-up Appointments: N/A Your Inpatient Doctor(s) at [facility]: ALEK TAVARES ABHIJIT S STEWART, EMILY A O'DOWD, EDDI BELL TIMOTHY R For questions regarding issues relating to your hospitalization on the Hospital Medicine Service, please contact your inpatient physician through the [facility] Water Filterer Helper [phone]. Issues after hours and on weekends will be handled by the Hospitalist staff on-call. Your Primary Care Provider Lorna Bal, APPLICATION DEVELOPMENT CONSULTANT [phone] documented in this encounter Medications at Time [...] Lundberg DO ID Fellow Green Team Pager: [phone] I examined the patient independently of Dr. [...] a hospital length of stay nutrition evaluation. Shaker Out spoke with nursing d/tpt status. Per documentation patient has excellent PO intakes recorded at 75-100% over the past 4 days. According to dining services software they have ordered btwn 1608-3033kcals/day within the sameduration. Pt is eating great with caregiver assistance and is completing 75% of food received per RN. Shaker Out unable to assess weight d/t only documentation [...] spent >30 minutes (Day of Discharge Code 49777) involved in the final examination of the patient, discussion of the hospital stay, instructions for continuing care to all relevant caregivers, and preparation of discharge records, prescriptions and referral forms. Plans ? Discharge to home ? Follow-up scheduled with infectious diseases, IR ? Please see the Discharge Summary for complete details of any medication changes and additional plans. Jody Collins MD [facility] Medicine * Yandy Masters RN - 08/01/2022 2:01 AM EDTSummary: Nursing OUTCOME EVALUATION NOTE: OUTCOME SUMMARY: Alert, non-verbal, hx of paraplegia, vss, 2a/L, no s+s of pain. Patient is resting comfortably in bed, Fannie (sock ironer) at bedside and attentive to patient, 2 [...] Lundberg, DO ID Fellow Green Team Pager: [phone] I examined the patient independently of Dr. [...] placement possible plastics involvement. Joe Harrison MD [place] [facility] - Department of Orthopaedic Surgery Dance Critic - Department of Orthopedic Surgery / Academics and Research Apparatus Operator Professor - [facility] 08/01/2022 * Jody Collins MD [...] drain x 2, oropeza, PIV Anticipated Disposition: drywaller care facility Code Status: Attempt Cardiopulmonary Resuscitation [...] of two midnights or is on the [facility] inpatient only procedure list (status C) due to: monitoring of fluid status given an inability to regulate fluid balance and the need for administration or restriction of fluids Team Pager( Coverage 17/11): #[phone] PCP: Lorna Bal, APPLICATION DEVELOPMENT CONSULTANT [phone] Jody Collins MD 07/31/2022 * Paige Gonzalez [...] ADLs]: Hands on Surveillance [facility]continuous indirect monitoring[facility] near nurses' station [...] Lundberg, DO ID Fellow Green Team Pager: [phone] I interviewed and examined the patient independently [...] Identification Panel by PCR Refer to link [email or web address] for a complete list of organisms. Identification [...] drain x 2, oropeza, PIV Anticipated Disposition: snf care facility Code Status: Attempt Cardiopulmonary Resuscitation [...] of two midnights or is on the [facility] inpatient only procedure list (status C) due to: monitoring of fluid status given an inability to regulate fluid balance and the need for administration or restriction of fluids Team Pager(MD Coverage 17/11): #[phone] PCP: Lorna Bal, APPLICATION DEVELOPMENT CONSULTANT [phone] Jody Collins MD 07/30/2022 * Shawn Woodard [...] attending, Dr. Vance Lundberg DO ID Fellow [place] Team Pager: [phone] I interviewed and examined the patient independently [...] management as above. Shawn Woodard MD * Chrisise Lundberg DO - 07/29/2022 3:28 PM EDT [...] Hospital Problems No resolved problems to display. [facility] Active Non-Hospital Problems Diagnosis ??? Spinal [...] future testing is required, contact the Microbiology Cylinder Handler. * No growth at 5 days. No [...] drain x 2, oropeza, PIV Anticipated Disposition: snf care facility Code Status: Attempt Cardiopulmonary Resuscitation [...] of two midnights or is on the [facility] inpatient only procedure list (status C) due to: monitoring of fluid status given an inability to regulate fluid balance and the need for administration or restriction of fluids Team Pager( Coverage 17/11): #[phone] PCP: Lorna Bal, APPLICATION DEVELOPMENT CONSULTANT [phone] Jody Collins MD 07/29/2022 * Jody Collins [...] future testing is required, contact the Microbiology Cylinder Handler. * No growth at 5 days. No [...] drain x 2, oropeza, PIV Anticipated Disposition: snf care facility Code Status: Attempt Cardiopulmonary Resuscitation [...] of two midnights or is on the [facility] inpatient only procedure list (status C) due to: monitoring of fluid status given an inability to regulate fluid balance and the need for administration or restriction of fluids Team Pager(MD Coverage 17/11): #[phone] PCP: Lorna Bal, APPLICATION DEVELOPMENT CONSULTANT [phone] Jody Collins MD 07/28/2022 * Margy Mtz [...] future testing is required, contact the Microbiology Cylinder Handler. * No growth at 5 days. No [...] drain x 2, oropeza, PIV Anticipated Disposition: snf care facility Code Status: Attempt Cardiopulmonary Resuscitation [...] of two midnights or is on the [facility] inpatient only procedure list (status C) due to: monitoring of fluid status given an inability to regulate fluid balance and the need for administration or restriction of fluids Team Pager( Coverage 17/11): #[phone] PCP: Lorna Bal, APPLICATION DEVELOPMENT CONSULTANT [phone] Jody Collins MD 07/27/2022 * Citlali Mcdonald [...] future testing is required, contact the Microbiology Cylinder Handler. * No growth at 5 days. No [...] drain x 2, oropeza, PIV Anticipated Disposition: drywaller care facility Code Status: Attempt Cardiopulmonary Resuscitation [...] of two midnights or is on the [facility] inpatient only procedure list (status C) due to: monitoring of fluid status given an inability to regulate fluid balance and the need for administration or restriction of fluids Team Pager(MD Coverage 17/11): #[phone] PCP: Lorna Bal, APPLICATION DEVELOPMENT CONSULTANT [phone] Jody Collins MD 07/26/2022 * Citlali Mcdonald [...] the same area she presented returned to [facility] [...] Sergey Doan MD Infectious Disease Fellow Pager [phone] 07/25/22 (Attending addendum to follow) Associated attestation [...] future testing is required, contact the Microbiology Cylinder Handler. * No growth at 5 days. No [...] drain x 2, oropeza, PIV Anticipated Disposition: drywaller care facility Code Status: Attempt Cardiopulmonary Resuscitation [...] of two midnights or is on the [facility] inpatient only procedure list (status C) due to: monitoring of fluid status given an inability to regulate fluid balance and the need for administration or restriction of fluids Team Pager( Coverage 17/11): #[phone] PCP: Lorna Bal, APPLICATION DEVELOPMENT CONSULTANT [phone] Jody Collins MD 07/25/2022 * Anamika Todd [...] Todd PA-C Interventional Radiology IR Team Pager [phone] * Citlali Mcdonald RN - 07/25/2022 4:46 [...] of : 1995 AGE: 27 y.o. [address]: [address] [place] [address] Phone: [phone] (home) Mobile: Telephone Information: Referring Provider: Unknown [...] [Transparent Dressings] Itching and Dermatitis Please use [id number] ??? Penicillins Pertinent PMH: Patient Active Problem [...] - DVT PPx: lovenox - Disposition: her drywaller care facility - Family support: mother and her snf care providers - Code Status: Attempt Cardiopulmonary Resuscitation - Inpatient IPI Certification I certify that I am a D-H credentialed attending provider with admitting privileges and that the patient meets or has met medical necessity to require an inpatient IPI level of care meeting a minimumof two midnights or is on the [facility] inpatient only procedure list (status C) due to: monitoring of fluid status given an inability to regulate fluid balance and the need for administration or restriction of fluids Ernesto Willingham MD TEAM/PAGER:[phone] Subjective/24hr events: Says yes to most questions. [...] future testing is required, contact the Microbiology Cylinder Handler. * No growth at 5 days. No [...] who have questions please contact the health urgent care that requested your imaging first. Electronically signed by: Jamaal Villafuerte [facility] ([phone]), at 07/22/2022 8:03 PM Medications: Scheduled Meds: [...] - DVT PPx: lovenox - Disposition: her snf care facility - Family support: mother and her drywaller care providers - Code Status: Attempt Cardiopulmonary Resuscitation - Inpatient IPI Certification I certify that I am a D-H credentialed attending provider with admitting privileges and that the patient meets or has met medical necessity to require an inpatient IPI level of care meeting a minimumof two midnights or is on the [facility] inpatient only procedure list (status C) due to: monitoring of fluid status given an inability to regulate fluid balance and the need for administration or restriction of fluids Ernesto Willingham MD TEAM/PAGER:[phone] Subjective/24hr events: Says yes to most questions. [...] future testing is required, contact the Microbiology Cylinder Handler. * No growth at 5 days. No [...] who have questions please contact the health urgent care that requested your imaging first. Electronically signed by: Jamaal Villafuerte [facility] ([phone]), at 07/22/2022 8:03 PM Medications: Scheduled Meds: [...] All Drainage Procedures 06/25/2022 Mich Martino MD [facility] INTERVENTIONL RAD ??? IR ALL DRAINAGE PROCEDURES 07/04/2022 IR All Drainage Procedures 07/04/2022 Mich Martino MD [facility] INTERVENTIONL RAD ??? IR DRAIN CHECK/CHANGE/REMOVE 07/01/2022 IR Drain Check/Change/Remove 07/01/2022 Jamaal Jenkins, DO [facility] INTERVENTIONL RAD ??? PRO APPLY OF HIP CASTS, TWO LEGS 08/15/2010 CAST APPLICATION, HIP SPICA, BOTH LEGS performed by YAS OLIVER at [facility] OR ? ? PRO I&D, POST SPINE, LUMB/SACR/LUMBOSAC N/A 05/20/2014 @I & D, OPEN, DEEP ABSCESS, LUMBAR, SACRAL, LUMBOSACRAL performed by Freddy Isbell MD at [facility] MAIN OR ? ? PRO I&D, POST SPINE, LUMB/SACR/LUMBOSAC N/A 05/26/2014 @I & D, OPEN, DEEP ABSCESS, LUMBAR, SACRAL, LUMBOSACRAL performed by Freddy Isbell MD at [facility] OR ??? PRO IMPACT TOOTH REMOV COMP BONY N/A 06/14/2018 SURGICAL EXTRACTIONS, REMOVAL OF IMPACTED TOOTH, COMPLETELY BONY (WRVU 1.93) performed by Keith Cotton MD at [facility] OSC ??? PRO OSTEOTOMY FEMUR SHAFT/SUPRACONDY 08/15/2010 ??OSTEOTOMY, FEMUR SHAFT OR SUPRACONDYLAR W/O FIXATION performed by YAS OLIVER at [facility] OR ??? PRO RECONSTRUC HIP SOCKET, RESEC FEM HEAD 08/15/2010 ??ACETABULOPLASTY (GIRDLESTONE), RESECTION FEMORAL HEAD, BILATERAL performed by YAS OLIVER [facility] OR ??? PRO REMOVAL DEEP IMPLANT 08/15/2010 REMOVAL IMPLANT, DEEP, BRUNO performed by YAS OLIVER at [facility] OR ??? PRO REMOVAL ERUPTED TOOTH WITH ELEVATION OF MUCOPERIOSTEAL FLAP N/A 06/14/2018 SURGICAL EXTRACTIONS REQUIRING ELEVATION OF MUCOPERIOSTEAL FLAP AND REMOVAL OF BONE OR SECTION OF TOOTH (WRVU 1.09) performed by Keith Cotton MD at [facility] OSC ??? PRO REMOVE INFUSN DEVICE/PUMP N/A 05/11/2014 REMOVAL OF SPINE INFUSION PUMP performed by Jamaal Samuel MD at [facility] MAIN OR ??? PRO REMOVE SPINAL CANAL CATHETER N/A 05/11/2014 REMOVAL OF INTRATHECAL OR EPIDURAL CATHETER performed by Jamaal Samuel MD at [facility] MAIN OR ??? PRO REPR, DURAL/CSF LEAK, NOT REQ LAMINECTOMY N/A 05/20/2014 @REPAIR DURAL\CSF LEAK,NOT REQUIRING LAMINECTOMY performed by Freddy Isbell MD at [facility] MAIN OR Medications: No current facility-administered [...] All Drainage Procedures 06/25/2022 Mich Martino MD [facility] INTERVENTIONL RAD ??? IR ALL DRAINAGE PROCEDURES 07/04/2022 IR All Drainage Procedures 07/04/2022 Mich Martino MD [facility] INTERVENTIONL RAD ??? IR DRAIN CHECK/CHANGE/REMOVE 07/01/2022 IR Drain Check/Change/Remove 07/01/2022 Jamaal Jenkins, DO [facility] INTERVENTIONL RAD ??? PRO APPLY OF HIP CASTS, TWO LEGS 08/15/2010 CAST APPLICATION, HIP SPICA, BOTH LEGS performed by YAS OLIVER at [facility] OR ? ? PRO I&D, POST SPINE, LUMB/SACR/LUMBOSAC N/A 05/20/2014 @I & D, OPEN, DEEP ABSCESS, LUMBAR, SACRAL, LUMBOSACRAL performed by Freddy Isbell MD at [facility] OR ? ? PRO I&D, POST SPINE, LUMB/SACR/LUMBOSAC N/A 05/26/2014 @I & D, OPEN, DEEP ABSCESS, LUMBAR, SACRAL, LUMBOSACRAL performed by Freddy Isbell MD at [facility] OR ??? PRO IMPACT TOOTH REMOV COMP BONY N/A 06/14/2018 SURGICAL EXTRACTIONS, REMOVAL OF IMPACTED TOOTH, COMPLETELY BONY (WRVU 1.93) performed by Keith Cotton MD at [facility] OSC ??? PRO OSTEOTOMY FEMUR SHAFT/SUPRACONDY 08/15/2010 ??OSTEOTOMY, FEMUR SHAFT OR SUPRACONDYLAR W/O FIXATION performed by YAS OLIVER at [facility] OR ??? PRO RECONSTRUC HIP SOCKET, RESEC FEM HEAD 08/15/2010 ??ACETABULOPLASTY (GIRDLESTONE), RESECTION FEMORAL HEAD, BILATERAL performed by YAS OLIVER [facility] OR ??? PRO REMOVAL DEEP IMPLANT 08/15/2010 REMOVAL IMPLANT, DEEP, BRUNO performed by YAS OLIVER at [facility] OR ??? PRO REMOVAL ERUPTED TOOTH WITH ELEVATION OF MUCOPERIOSTEAL FLAP N/A 06/14/2018 SURGICAL EXTRACTIONS REQUIRING ELEVATION OF MUCOPERIOSTEAL FLAP AND REMOVAL OF BONE OR SECTION OF TOOTH (WRVU 1.09) performed by Keith Cotton MD at [facility] OSC ??? PRO REMOVE INFUSN DEVICE/PUMP N/A 05/11/2014 REMOVAL OF SPINE INFUSION PUMP performed by Jamaal Samuel MD at [facility] OR ??? PRO REMOVE SPINAL CANAL CATHETER N/A 05/11/2014 REMOVAL OF INTRATHECAL OR EPIDURAL CATHETER performed by Jamaal Samuel MD at [facility] OR ??? PRO REPR, DURAL/CSF LEAK, [...] quadriplegia ID: 27 y.o. Female presents to [facility] with increased drainage from prior lumbar subcutaneous [...] All Drainage Procedures 06/25/2022 Mich Martino MD [facility] INTERVENTIONL RAD ??? IR ALL DRAINAGE PROCEDURES 07/04/2022 IR All Drainage Procedures 07/04/2022 Mich Martino MD [facility] INTERVENTIONL RAD ??? IR DRAIN CHECK/CHANGE/REMOVE 07/01/2022 IR Drain Check/Change/Remove 07/01/2022 Jamaal Jenkins, DO [facility] INTERVENTIONL RAD ??? PRO APPLY OF HIP CASTS, TWO LEGS 08/15/2010 CAST APPLICATION, HIP SPICA, BOTH LEGS performed by YAS OLIVER at [facility] MAIN OR ? ? PRO I&D, POST SPINE, LUMB/SACR/LUMBOSAC N/A 05/20/2014 @I & D, OPEN, DEEP ABSCESS, LUMBAR, SACRAL, LUMBOSACRAL performed by Freddy Isbell MD at [facility] OR ? ? PRO I&D, POST SPINE, LUMB/SACR/LUMBOSAC N/A 05/26/2014 @I & D, OPEN, DEEP ABSCESS, LUMBAR, SACRAL, LUMBOSACRAL performed by Freddy Isbell MD at [facility] OR ??? PRO IMPACT TOOTH REMOV COMP BONY N/A 06/14/2018 SURGICAL EXTRACTIONS, REMOVAL OF IMPACTED TOOTH, COMPLETELY BONY (WRVU 1.93) performed by Keith Cotton MD at [facility] OSC ??? PRO OSTEOTOMY FEMUR SHAFT/SUPRACONDY 08/15/2010 ??OSTEOTOMY, FEMUR SHAFT OR SUPRACONDYLAR W/O FIXATION performed by YAS OLIVER at [facility] OR ??? PRO RECONSTRUC HIP SOCKET, RESEC FEM HEAD 08/15/2010 ??ACETABULOPLASTY (GIRDLESTONE), RESECTION FEMORAL HEAD, BILATERAL performed by YAS OLIVER [facility] OR ??? PRO REMOVAL DEEP IMPLANT 08/15/2010 REMOVAL IMPLANT, DEEP, BRUNO performed by YAS OLIVER at [facility] OR ??? PRO REMOVAL ERUPTED TOOTH WITH ELEVATION OF MUCOPERIOSTEAL FLAP N/A 06/14/2018 SURGICAL EXTRACTIONS REQUIRING ELEVATION OF MUCOPERIOSTEAL FLAP AND REMOVAL OF BONE OR SECTION OF TOOTH (WRVU 1.09) performed by Keith Cotton MD at [facility] OSC ??? PRO REMOVE INFUSN DEVICE/PUMP N/A 05/11/2014 REMOVAL OF SPINE INFUSION PUMP performed by Jamaal Samuel MD at [facility] OR ??? PRO REMOVE SPINAL CANAL CATHETER N/A 05/11/2014 REMOVAL OF INTRATHECAL OR EPIDURAL CATHETER performed by Jamaal Samuel MD at [facility] OR ??? PRO REPR, DURAL/CSF LEAK, NOT REQ LAMINECTOMY N/A 05/20/2014 @REPAIR DURAL\CSF LEAK,NOT REQUIRING LAMINECTOMY performed by Freddy Isbell MD at [facility] OR Prior To Admission Medications: (Not in a hospital admission) Allergies: Allergies Allergen Reactions ??? Fluoxetine Other (See Comments) HIVES, HEART RACES ??? Tegaderm [Transparent Dressings] Itching and Dermatitis Please use [id number] ??? Penicillins Family History: Family History Problem [...] Administered Date(s) Administered ??? Influenza Vaccine (Novel) [id number], Injectable 02/25/2009 ??? Influenza Vaccine w/Preservative, Split [...] external catheter placed. Will continue to monitor. Subsystems Engineer at bedside. * Samuel Comer MD - [...] who have questions please contact the health urgent care that requested your imaging first. Electronically signed by: Jamaal Villafuerte [facility] ([phone]), at 07/22/2022 8:03 PM Recent Results (from [...] MD 07/22/22 Samuel Comer MD Resident 07/22/22 [id number] Associated attestation - Alek Tavares MD - [...] separate note. Brief Summary: History obtained from sock ironer 27 y.o. female with history of traumatic [...] for 1700. * Care Management Discharge - Ysa John RN - 08/01/2022 9:58 AM EDT [...] with plan. Yas John RN, BSN, LALA Print Line Inspector Pager [phone] * Plan of Care - Jimbo Willams [...] Name: Anderson Thorpe Decision Maker Contact Information: [phone] (M) Proxy Activated: Yes Functional status prior [...] Discharge: 08/01/2022 Yas John RN, BSN, LALA Print Line Inspector Pager [phone] * Plan of Care - Guerita Quinonez [...] for sensory deficits provided, if applicable: yes. back up scan coordinator present * Plan of Care - Tasha [...] Masimo, bed alarm in use, purposeful rounding, tree care foreman at bed side. * Care Management - [...] Name: Anderson Thorpe Decision Maker Contact Information: [phone] (M) Proxy Activated: Yes Functional status prior [...] Discharge: 07/29/2022 Yas John RN, BSN, LALA Print Line Inspector Pager [phone] * Plan of Care - Maren Barnard [...] for sensory deficits provided, if applicable: yes. back up scan coordinator present * Plan of Care - Osman [...] [address] Appointed Guardian(s) Contact Information: [phone] (H) [phone] (M) Proxy Activated: Yes Guardianship paperwork on [...] hospital bed Home Address listed as: [address] [place] [id number] Social & Family Supports: All names listed below confirmed with patient as current and correct Extended Emergency Contact Information Primary Emergency Contact: Anderson Thorpe [facility] Mobile Relation: Mother Secondary Emergency Contact: Curt Philippe [facility] Mobile Relation: Step parent Current Care Provided [...] N/A ; Prescription Coverage: Yes Preferred Pharmacy: [facility] [address] [place] [address] [address] [facility] [address] [place] [address] [facility] Home Delivery - [place], [place] - [address] [facility] [address] [facility] [address] [facility] [address] - [place], [place] - [address] [facility] [address] [facility] [address] Status: Patient is a : No Primary Care Provider listed: Lorna Bal APRN [phone] Patient/Caregiver Goals of Treatment: return home with [...] care planning. Yas John RN, BSN, LALA Print Line Inspector Pager [phone] * Plan of Care - Osman Bowen RN - 07/24/2022 6:26 PM EDT OUTCOME EVALUATION NOTE: OUTCOME SUMMARY: Patient brightens with approach, on room air, tree care foreman at bedside, IR placed 2 carmella drains [...] included. DEPARTMENT OF INFECTIOUS DISEASE & [facility] INFECTIOUS DISEASE CONSULT NOTE Patient Name: Tana Cavazos PCP: Lorna Bal APRN PCP phone #: [phone] Reason for Admission: Lumbar subcutaneous abscesses with [...] to the ED today. Upon arrival to [facility] she was found afebrile, hemodynamically stable. Normal [...] the same area she presented [facility] [...] following additions/modifications: Patient was recently admitted to [facility] in early June 2022, at which point [...] of purulent material. She was re-admitted to [facility] on 07/22 for ongoing management, at which [...] on the date of service on the [id number] encounter, chart review, clinical decision making, documentation, [...] Discuss with Dr. Christy Menchaca MD Pager: #[phone] 07/23/22 12:31 PM Future Appointments Date Time Provider Department Center 07/31/2022 1:00 PM Lilli Joy APRN [facility] ID [id number] [facility] 08/13/2022 11:30 AM Sergey Keane MD [facility] ID [id number] [facility] Associated attestation - Joe Harrison MD - 07/25/2022 12:47 PM EDT Recommend IR drainage. Try to avoid surgery. However, may need debridement and VAC placement. Joe Harrison MD ND [facility] - Department of Orthopaedic Surgery Dance Critic - Department of Orthopedic Surgery / Academics and Research Apparatus Operator Professor - [facility] 07/25/2022 * Consult Note - Oriana Rondon RP - 07/23/2022 1:09 AM EDT TelePharmacy Home Medication List Update for Medication Reconciliation 07/23/22 1:09 AM Tana Cavazos 1995 Allergies Allergen Reactions ??? Fluoxetine Other (See Comments) HIVES, HEART RACES ??? Tegaderm [Transparent Dressings] Itching and Dermatitis Please use [id number] ??? Penicillins ??? 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 Quality of Interview/accuracy of medication list: [...] list with information provided by patients adult sock ironer, Fannie Villarreal. Fannie reports also using Interdry [...] PM EST Office [place] [address] Hollie Ambriz MD [facility] [place] [address] documented as of this encounter Procedures Procedure [...] 5:47 AM EDT) Neutrophil % 48.3 % [facility] Neutrophil Absolute 2.57 1.70 - 6.10 x10(3)/[facility] Lymph % 42.1 % [facility] Lymphocytes Abs 2.2 0.9 - 3.2 x10(3)/[facility] Monocyte % 6.4 % [facility] Monocyte Abs 0.3 0.3 - 0.9 x10(3)/[facility] Eos % 2.6 % [facility] Eosinophils Abs 0.1 0.0 - 0.4 x10(3)/[facility] Basophil % 0.4 % [facility] Baso Absolute 0.0 0.0 - 0.1 x10(3)/[facility] Immature Gran % 0.20 % [facility] Comment: Immature granulocytes(IG's)percentage and absolute count will include metamyelocytes, myelocytes, and promyelocytes. Blood smears from CBCs yielding IG's will be scanned manually for concordance. If this scan disagrees with the automated IG or if promyelocytes are noted, a manual differential will be performed. Immature Gran Absolute 0.01 0.00 - 0.04 x10(3)/[facility] Blood 08/01/2022 5:47 AM EDT 08/01/2022 6:03 AM EDT Narrative Resulting Agency Comment Spec In Lab Jody Collins MD [place] [address] * (ABNORMAL) Hemogram (08/01/2022 5:47 AM EDT) White Blood Cell 5.3 4.0 - 9.5 x10(3)/mc L [facility] Red Blood Cell 3.99(L) 4.00 - 5.21 x10(6)/mc L [facility] Hemoglobin 9.9(L) 11.7 - 15.5 g/dL [facility] Hematocrit 32.2(L) 35.7 - 45.8 % [facility] Mean Cell Volume 80.7(L) 82.6 - 94.4 fL [facility] Mean Cell Hemoglobin 24.8(L) 27.1 - 32.0 pg [facility] Mean Cell Hemoglobin Concentration 30.7(L) 31.7 - 35.0 g/dL [facility] Platelet 329 145 - 357 x10(3)/mc L [facility] RDW Standard Deviation 53.1(H) 37.0 - 46.0 fL [facility] RDW coefficient of variation 18.1(H) 11.5 - 14.1 % [facility] Mean Platelet Volume 9.3 7.6 - 12.9 fL [facility] NRBC% auto 0.0 % [facility] NRBC Absolute 0.000 0.000 - 0.000 x10(3)/mc L [facility] Blood 08/01/2022 5:47 AM EDT 08/01/2022 6:03 AM EDT Narrative Resulting Agency Comment Spec In Lab Jody Collins MD [place] [address] * Blood culture (07/31/2022 1:09 PM EDT) Blood Culture No growth at 5 days. [facility] Blood STRUCTURE OF LEFT HAND / Unknown 07/31/2022 1:09 PM EDT 07/31/2022 2:09 PM EDT Comment:#2 Narrative Resulting Agency Comment Spec In Lab Jody Collins MD MICROBIOLOGY - BLOOD ORDERABLES Performing Organization Address City/[facility]/ZIP Co de Phone Number [facility] [place] [place] [address] * Blood culture (07/31/2022 1:04 PM EDT) Blood Culture No growth at 5 days. [facility] Blood STRUCTURE OF RIGHT HAND / Unknown 07/31/2022 1:04 PM EDT 07/31/2022 2:09 PM EDT Comment:#1 Narrative Resulting Agency Comment Spec In Lab Jody Collins MD MICROBIOLOGY - BLOOD ORDERABLES Performing Organization Address [facility] Co de Phone Number [facility] [place] [place] [address] * Differential, Automated (07/31/2022 4:53 AM EDT) Neutrophil % 42.0 % [facility] Neutrophil Absolute 2.02 1.70 - 6.10 x10(3)/[facility] Lymph % 47.6 % [facility] Lymphocytes Abs 2.3 0.9 - 3.2 x10(3)/[facility] Monocyte % 7.3 % [facility] Monocyte Abs 0.4 0.3 - 0.9 x10(3)/[facility] Eos % 2.5 % [facility] Eosinophils Abs 0.1 0.0 - 0.4 x10(3)/[facility] Basophil % 0.4 % [facility] Baso Absolute 0.0 0.0 - 0.1 x10(3)/[facility] Immature Gran % 0.20 % [facility] Comment: Immature granulocytes(IG's)percentage and absolute count will include metamyelocytes, myelocytes, and promyelocytes. Blood smears from CBCs yielding IG's will be scanned manually for concordance. If this scan disagrees with the automated IG or if promyelocytes are noted, a manual differential will be performed. Immature Gran Absolute 0.01 0.00 - 0.04 x10(3)/[facility] Blood 07/31/2022 4:53 AM EDT 07/31/2022 5:07 AM EDT Narrative Resulting Agency Comment Spec In Lab Jody Collins MD HEMATOLOGY ORDERABLE S Performing Organization Address City/[facility]/ZIP Co de Phone Number [facility] [place] [place] [address] * (ABNORMAL) Hemogram (07/31/2022 4:53 AM EDT) White Blood Cell 4.8 4.0 - 9.5 x10(3)/mc L [facility] Red Blood Cell 4.16 4.00 - 5.21 x10(6)/mc L [facility] Hemoglobin 10.3(L) 11.7 - 15.5 g/dL [facility] Hematocrit 33.3(L) 35.7 - 45.8 % [facility] Mean Cell Volume 80.0(L) 82.6 - 94.4 fL [facility] Mean Cell Hemoglobin 24.8(L) 27.1 - 32.0 pg [facility] Mean Cell Hemoglobin Concentration 30.9(L) 31.7 - 35.0 g/dL [facility] Platelet 302 145 - 357 x10(3)/mc L [facility] RDW Standard Deviation 53.7(H) 37.0 - 46.0 fL [facility] RDW coefficient of variation 18.5(H) 11.5 - 14.1 % [facility] Mean Platelet Volume 9.2 7.6 - 12.9 fL [facility] NRBC% auto 0.0 % [facility] NRBC Absolute 0.000 0.000 - 0.000 x10(3)/mc L [facility] Blood 07/31/2022 4:53 AM EDT 07/31/2022 5:07 AM EDT Narrative Resulting Agency Comment Spec In Lab Jody Collins MD HEMATOLOGY ORDERABLE S Performing Organization Address City/[facility]/ZIP Co de Phone Number [facility] [place] [place] [address] * (ABNORMAL) CRP, acute inflammation (07/31/2022 4:53 AM EDT) C-Reactive Protein 28.8(H) <=4.9 mg/L [facility] Comment:result rechecked-KS Blood 07/31/2022 4:53 AM EDT 07/31/2022 5:07 AM EDT Narrative Resulting Agency Comment Spec In Lab Jody Collins MD CHEMISTRY ORDERABLES [facility] [place] [address] * (ABNORMAL) Basic Metabolic Panel (non-fasting) (07/31/2022 4:53 AM EDT) Glucose 88 65 - 199 mg/dL [facility] Comment:Diabetes: >=200 mg/d L plus symptoms Blood Urea Nitrogen 11 8 - 18 mg/dL [facility] Comment:result rechecked-KS Creatinine 0.29(L) 0.70 - 1.20 mg/dL [facility] Sodium 138 135 - 145 mmol/L [facility] Potassium 3.9 3.5 - 5.0 mmol/L [facility] Comment: Please note: ??Patients with WBC >100,000 may have falsely elevated Potassium levels. ??For accurate Potassium quantification in these patients send serum separator tube (gold top) for subsequent determinations. ??Contact the Clinical Chemistry Laboratory if there are any questions. Chloride 103 98 - 107 mmol/L [facility] Carbon Dioxide 24 22 - 31 mmol/L [facility] Anion Gap 11 5 - 15 mmol/L [facility] Calcium 9.3 8.5 - 10.5 mg/dL [facility] Est Glomerular Filtration Rate 148 >=60 mL/min/1. 73 m?? [facility] Comment: This patient's estimated GFR [...] In Lab Jody Collins MD CHEMISTRY ORDERABLES [facility] [place] [place] [address] * Differential, Automated (07/30/2022 5:14 AM EDT) Neutrophil % 44.1 % [facility] Neutrophil Absolute 1.79 1.70 - 6.10 x10(3)/[facility] Lymph % 42.9 % [facility] Lymphocytes Abs 1.7 0.9 - 3.2 x10(3)/[facility] Monocyte % 9.1 % [facility] Monocyte Abs 0.4 0.3 - 0.9 x10(3)/[facility] Eos % 3.2 % [facility] Eosinophils Abs 0.1 0.0 - 0.4 x10(3)/[facility] Basophil % 0.5 % [facility] Baso Absolute 0.0 0.0 - 0.1 x10(3)/[facility] Immature Gran % 0.20 % [facility] Comment: Immature granulocytes(IG's)percentage and absolute count will include metamyelocytes, myelocytes, and promyelocytes. Blood smears from CBCs yielding IG's will be scanned manually for concordance. If this scan disagrees with the automated IG or if promyelocytes are noted, a manual differential will be performed. Immature Gran Absolute 0.01 0.00 - 0.04 x10(3)/[facility] Blood 07/30/2022 5:14 AM EDT 07/30/2022 5:38 AM EDT Narrative Resulting Agency Comment Spec In Lab Jody Collins MD HEMATOLOGY ORDERABLE S [facility] [place] [address] * (ABNORMAL) Hemogram (07/30/2022 5:14 AM EDT) White Blood Cell 4.1 4.0 - 9.5 x10(3)/ L [facility] Red Blood Cell 4.02 4.00 - 5.21 x10(6)/mc L [facility] Hemoglobin 9.9(L) 11.7 - 15.5 g/dL [facility] Hematocrit 31.7(L) 35.7 - 45.8 % [facility] Mean Cell Volume 78.9(L) 82.6 - 94.4 fL [facility] Mean Cell Hemoglobin 24.6(L) 27.1 - 32.0 pg [facility] Mean Cell Hemoglobin Concentration 31.2(L) 31.7 - 35.0 g/dL [facility] Platelet 305 145 - 357 x10(3)/mc L [facility] RDW Standard Deviation 53.1(H) 37.0 - 46.0 fL [facility] RDW coefficient of variation 18.5(H) 11.5 - 14.1 % [facility] Mean Platelet Volume 9.6 7.6 - 12.9 fL [facility] NRBC% auto 0.0 % [facility] NRBC Absolute 0.000 0.000 - 0.000 x10(3)/ L [facility] Blood 07/30/2022 5:14 AM EDT 07/30/2022 5:38 AM EDT Narrative Resulting Agency Comment Spec In Lab Jody Collins MD HEMATOLOGY ORDERABLE S [facility] [place] [address] * Blood culture (07/30/2022 5:14 AM EDT) Blood Culture No growth at 5 days. [facility] Blood STRUCTURE OF LEFT HAND / Unknown 07/30/2022 5:14 AM EDT 07/30/2022 6:38 AM EDT Narrative Resulting Agency Comment Spec In Lab Yury Saavedra MD MICROBIOLOGY - BLOO D ORDERABLES Performing Organization Address City/[facility]/ZIP Co de Phone Number [facility] [place] [place] [address] * Phosphorus (07/28/2022 11:27 PM EDT) Pathologist [facility] Phosphorus 4.2 2.5 - 4.5 mg/dL [facility] Blood Venous Draw / Unknown 07/28/2022 11:27 PM EDT 07/28/2022 11:44 PM EDT Narrative Resulting Agency Comment Spec In Lab Shea Fox MD CHEMISTRY ORDERABLES Performing Organization Address [facility] Co de Phone Number [facility] [place] [place] [address] * Magnesium (07/28/2022 11:27 PM EDT) Pathologist [facility] Magnesium 0.73 0.69 - 1.07 mmol/L [facility] Blood Venous Draw / Unknown 07/28/2022 11:27 PM EDT 07/28/2022 11:44 PM EDT Narrative Resulting Agency Comment Spec In Lab Shea Fox MD CHEMISTRY ORDERABLES Performing Organization Address [facility] Co de Phone Number [facility] [place] [place] [address] * Differential, Automated (07/28/2022 11:27 PM EDT) Neutrophil % 51.2 % [facility] Neutrophil Absolute 2.52 1.70 - 6.10 x10(3)/[facility] Lymph % 37.3 % [facility] Lymphocytes Abs 1.8 0.9 - 3.2 x10(3)/[facility] Monocyte % 9.1 % [facility] Monocyte Abs 0.4 0.3 - 0.9 x10(3)/[facility] Eos % 1.4 % [facility] Eosinophils Abs 0.1 0.0 - 0.4 x10(3)/[facility] Basophil % 0.6 % [facility] Baso Absolute 0.0 0.0 - 0.1 x10(3)/[facility] Immature Gran % 0.40 % [facility] Comment: Immature granulocytes(IG's)percentage and absolute count will include metamyelocytes, myelocytes, and promyelocytes. Blood smears from CBCs yielding IG's will be scanned manually for concordance. If this scan disagrees with the automated IG or if promyelocytes are noted, a manual differential will be performed. Immature Gran Absolute 0.02 0.00 - 0.04 x10(3)/[facility] Blood 07/28/2022 11:2 7 PM EDT 07/28/2022 11:34 PM EDT Narrative Resulting Agency Comment Spec In Lab Shea Fox MD HEMATOLOGY ORDERABLE S Performing Organization Address City/State/[facility] Co de Phone Number [facility] [place] [place] [address] * (ABNORMAL) Hemogram (07/28/2022 11:27 PM EDT) White Blood Cell 4.9 4.0 - 9.5 x10(3)/[facility] LABORATORY Red Blood Cell 4.06 4.00 - 5.21 x10(6)/[facility] Hemoglobin 10.0(L) 11.7 - 15.5 g/dL [facility] Hematocrit 32.3(L) 35.7 - 45.8 % [facility] Mean Cell Volume 79.6(L) 82.6 - 94.4 fL [facility] Mean Cell Hemoglobin 24.6(L) 27.1 - 32.0 pg [facility] Mean Cell Hemoglobin Concentration 31.0(L) 31.7 - 35.0 g/dL [facility] Platelet 303 145 - 357 x10(3)/[facility] LAB[facility] RDW Standard Deviation 53.3(H) 37.0 - 46.0 fL [facility] RDW coefficient of variation 18.5(H) 11.5 - 14.1 % [facility] Mean Platelet Volume 9.2 7.6 - 12.9 fL [facility] NRBC% auto 0.0 % [facility] NRBC Absolute 0.000 0.000 - 0.000 x10(3)/mc L [facility] Blood 07/28/2022 11:2 7 PM EDT 07/28/2022 11:34 PM EDT Narrative Resulting Agency Comment Spec In Lab Shea Fox MD HEMATOLOGY ORDERABLE S [facility] [address] [place] [address] * (ABNORMAL) Blood culture (07/28/2022 11:27 PM EDT) Blood Culture Pseudomonas oryzihabitans isolated Isolate saved. If future testing is required, contact the Microbiology Cylinder Handler. (A) [facility] Gram Stain Aerobic Growth detected in aerobic bottle. Gram Negative Rods seen Results called to and read back by Guerita Quinonez RN ??07/30/22 02:02:27 (A) [facility] Organism Pseudomonas oryzihabitans(A) [facility] Organism Gram Negative Rods(A) [facility] Blood 07/28/2022 11:2 7 PM [...] MICROBIOLOGY - BLOOD ORDERABLES Performing Organization Address City/[facility] Co de Phone Number [facility] [place] [place] [address] * Lactate, whole blood, send to lab ([facility]) (07/28/2022 11:27 PM EDT) Lactate WB 1.7 0.5 - 2.2 mmol/L [facility] Blood 07/28/2022 11:2 7 PM EDT 07/28/2022 11:33 PM EDT Narrative Resulting Agency Comment Spec In Lab Shea Fox MD CHEMISTRY ORDERABLES Performing Organization Address [facility] Co de Phone Number [facility] [place] [place] [address] * Lipase (07/28/2022 11:27 PM EDT) Lipase 29 0 - 60 unit/L [facility] Blood 07/28/2022 11:2 7 PM EDT 07/28/2022 11:34 PM EDT Narrative Resulting Agency Comment Spec In Lab Shea Fox MD CHEMISTRY ORDERABLES Performing Organization Address [facility] Co de Phone Number [facility] [place] [place] [address] * (ABNORMAL) Comprehensive metabolic panel (non-fasting) (07/28/2022 11:27 PM EDT) Glucose 98 65 - 199 mg/dL [facility] Comment:Diabetes: >=200 mg/d L plus symptoms Blood Urea Nitrogen 7(L) 8 - 18 mg/dL [facility] Creatinine 0.30(L) 0.70 - 1.20 mg/dL [facility] Sodium 138 135 - 145 mmol/L [facility] Potassium 3.9 3.5 - 5.0 mmol/L [facility] Comment: Please note: ??Patients with WBC >100,000 may have falsely elevated Potassium levels. ??For accurate Potassium quantification in these patients send serum separator tube (gold top) for subsequent determinations. ??Contact the Clinical Chemistry Laboratory if there are any questions. Chloride 102 98 - 107 mmol/L [facility] Carbon Dioxide 25 22 - 31 mmol/L [facility] Anion Gap 11 5 - 15 mmol/L [facility] Calcium 9.2 8.5 - 10.5 mg/dL [facility] Protein, Total 7.3 6.1 - 8.0 g/dL [facility] Albumin 3.6 3.2 - 5.2 g/dL [facility] Aspartate Aminotransferase 35(H) 0 - 30 unit/L [facility] Alanine Aminotransferase 42(H) 0 - 30 unit/L [facility] Alkaline Phosphatase 182(H) 35 - 105 unit/L [facility] Bilirubin, Total 0.2 0.2 - 1.3 mg/dL [facility] Est Glomerular Filtration Rate 147 >=60 mL/min/1. 73 m?? [facility] Comment: This patient's estimated GFR [...] In Lab Shea Fox MD CHEMISTRY ORDERABLES [facility] [place] [address] * (ABNORMAL) CRP, acute inflammation (07/28/2022 11:27 PM EDT) C-Reactive Protein 51.5(H) <=4.9 mg/L [facility] Blood 07/28/2022 11:2 7 PM EDT 07/28/2022 11:44 PM EDT Narrative Resulting Agency Comment Spec In Lab Jody Collins MD CHEMISTRY ORDERABLES Performing Organization Address [facility] Co de Phone Number [facility] [place] [place] [address] * Urinalysis with reflex Culture (07/28/2022 11:20 PM EDT) Glucose, Urine Dipstick Negative Negative mg/dL [facility] Protein, Urine Dipstick Negative Negative mg/dL [facility] Bilirubin, Urine Dipstick Negative Negative mg/dL [facility] Comment: Clinical correlation required for positive Urine Bilirubin results as false positive may occur with some drugs and drug related products. If a false positive is suspected a serum total bilirubin should be considered if clinically indicated. Urobilinogen, Urine Dipstick Normal Normal mg/dL [facility] pH, Urn (dipstick) 7.5 5.0 - 8.0 [facility] Blood, Urine Dipstick Negative Negative mg/dL [facility] Ketone, Urine Dipstick Negative Negative mg/dL [facility] Nitrite, Urine Dipstick Negative Negative [facility] Leukocytes, Urine Dipstick Negative Negative mcL [facility] Appearance, Urine Dipstick Clear Clear [facility] Specific Bradley Urine Automated 1.013 1.005 - 1.030 [facility] Color, Urine Dipstick Yellow Yellow [facility] Reflex to Culture No [facility] Straight Catheter Urine 07/28/2022 11:20 PM EDT 07/29/2022 12:04 AM EDT Narrative Resulting Agency Comment Spec In Lab Shea Fox MD URINE ORDERABLES Performing Organization Address City/[facility]/ZIP Co de Phone Number [facility] [place] [place] [address] * Blood culture (07/28/2022 11:11 PM EDT) Blood Culture No growth at 5 days. [facility] Blood 07/28/2022 11:1 1 PM EDT 07/29/2022 12:17 AM EDT Comment:R hand Narrative Resulting Agency Comment Spec In Lab Shea Fox MD MICROBIOLOGY - BLOOD ORDERABLES [facility] [place] [address] * XR Chest One View (07/28/2022 8:11 [...] who have questions please contact the health urgent care that requested your imaging first. ? Electronically signed by: FAINA GALLEGO MD, [facility] ??([phone]), at 07/28/2022 8:32 PM Narrative 07/28/2022 8:32 [...] patients who have questions please contactthe health urgent care that requested your imaging first. Electronically signed by: FAINA GALLEGO MD, [facility]([phone]), at 07/28/2022 8:32 PM Jody Collins MD IMG DX ORDERABLES * (ABNORMAL) Respiratory Panel PCR (07/28/2022 8:01 PM EDT) Respiratory Panel Source GUI DEVEL[employer] Swab [facility] Respiratory Panel PCR Positive(A) Negative [facility] Comment: Respiratory Panels are performed on the Stimatix GI, using multiplexed PCR nucleic acid detection. ??Negative results do not preclude respiratory infection and should not be used as the sole basis for diagnosis, treatment or other management decisions. Adenovirus Not Detected Not Detected [facility] Coronavirus HKU1 Not Detected Not Detected [facility] Coronavirus NL63 Not Detected Not Detected [facility] Coronavirus 229E Not Detected Not Detected [facility] Coronavirus OC43 Not Detected Not Detected [facility] SARS-CoV-2 Not Detected Not Detected [facility] Comment: Testing for SARS-CoV-2 (Severe acute respiratory syndrome coronavirus 2) to aid in the diagnosis of COVID-19 is performed using the BioFire Respiratory Panel 2.1 ([place]) as authorized by the FDA issued Emergency Use Authorization (EUA). This panel also tests for multiple other viral and bacterial pathogens. This assay is intended for In-vitro Diagnostic (IVD) use with nasopharyngeal swabs in viral transport media. The assay is performed based on the instructions for use and additional guidance provided by the FDA. Testing is performed in laboratories within the [facility], each of which is certified under the [...] fact sheets at the following FDA website: https://www.fda.gov/medical-devices/looublysxsc-wpvgfvd-4957-vdwri-06-vlpsbgyeb- use-a ndcdcsccjsqgy-mdbauuy-xugvcie/lhnki-lsuxfhypexv-aekf Human Metapneumovirus Not Detected Not Detected [facility] Human Rhinovirus/Enterov irus Detected(A) Not Detected [facility] Influenza A Not Detected Not Detected [facility] Influenza B Not Detected Not Detected [facility] Parainfluenza 1 Not Detected Not Detected [facility] Parainfluenza 2 Not Detected Not Detected [facility] Parainfluenza 3 Not Detected Not Detected [facility] Parainfluenza 4 Not Detected Not Detected [facility] Respiratory Syncytial Virus Not Detected Not Detected [facility] Chlamydophila pneumoniae Not Detected Not Detected [facility] Mycoplasma pneumoniae Not Detected Not Detected [facility] Nasopharyngeal Swab Other / Unknown 07/28 8:01 PM EDT 07/28/2022 8:29 PM EDT Comment:Symptoms->Fever / Re spiratory Symptoms Narrative Resulting Agency Comment Spec In Lab Shea Fox MD MICROBIOLOGY - [facility] AL ORDERABLES [facility] [place] [place] [address] * COVID-19 PCR (07/28/2022 8:01 PM EDT) SARS-CoV-2 RNA (Rapid) Not Detected Not Detected [facility] Comment: This result should be [...] using the Simplexa COVID-19 Direct Assay by [employer] as authorized by the FDA issued Emergency [...] Department of Pathology and Laboratory Medicine at [facility], certified under the Clinical Laboratory Improvement [...] fact sheets at the following FDA website: https://www.fda.gov/medical-devices/apsnqxsvhcd-ryzqcej-8755-tcxsc-66-ehharzvvi- use-a ltonziqbpmmpt-cyushbi-mjxcuuw/bbovk-gabkijusrkz-jlcz SARS-CoV-2 Source GUI DEVELOPER Swab [facility] Nasopharyngeal Swab 07/29/19 8:01 PM EDT 07/28/2022 8:29 PM EDT Comment:Symptoms->Fever / Re spiratory Symptoms Narrative Resulting Agency Comment Spec In Lab Jody Collins MD MICROBIOLOGY - GENER AL ORDERABLES Performing Organization Address City/State/[facility] Co de Phone Number [facility] [place] [address] * CT Lumbar Spine w Contrast (07/28/2022 [...] who have questions please contact the health urgent care that requested your imaging first. ? [...] patients who have questions please contactthe health urgent care that requested your imaging first. Jody Collins MD IMG CT ORDERABLES * Differential, Automated (07/28/2022 5:02 AM EDT) Neutrophil % 52.9 % [facility] Neutrophil Absolute 2.31 1.70 - 6.10 x10(3)/[facility] Lymph % 34.3 % [facility] Lymphocytes Abs 1.5 0.9 - 3.2 x10(3)/[facility] Monocyte % 11.2 % [facility] Monocyte Abs 0.5 0.3 - 0.9 x10(3)/[facility] Eos % 1.1 % [facility] Eosinophils Abs 0.0 0.0 - 0.4 x10(3)/[facility] Basophil % 0.5 % [facility] Baso Absolute 0.0 0.0 - 0.1 x10(3)/[facility] Immature Gran % 0.00 % [facility] Comment: Immature granulocytes(IG's)percentage and absolute count will include metamyelocytes, myelocytes, and promyelocytes. Blood smears from CBCs yielding IG's will be scanned manually for concordance. If this scan disagrees with the automated IG or if promyelocytes are noted, a manual differential will be performed. Immature Gran Absolute 0.00 0.00 - 0.04 x10(3)/[facility] Blood 07/28/2022 5:02 AM EDT 07/28/2022 5:24 AM EDT Narrative Resulting Agency Comment Spec In Lab Jody Collins MD HEMATOLOGY ORDERABLE S [facility] [place] [address] * (ABNORMAL) Hemogram (07/28/2022 5:02 AM EDT) White Blood Cell 4.4 4.0 - 9.5 x10(3)/mc L [facility] Red Blood Cell 3.83(L) 4.00 - 5.21 x10(6)/mc L [facility] Hemoglobin 9.5(L) 11.7 - 15.5 g/dL [facility] Hematocrit 30.3(L) 35.7 - 45.8 % [facility] Mean Cell Volume 79.1(L) 82.6 - 94.4 fL [facility] Mean Cell Hemoglobin 24.8(L) 27.1 - 32.0 pg [facility] Mean Cell Hemoglobin Concentration 31.4(L) 31.7 - 35.0 g/dL [facility] Platelet 295 145 - 357 x10(3)/mc L [facility] RDW Standard Deviation 53.1(H) 37.0 - 46.0 fL [facility] RDW coefficient of variation 18.3(H) 11.5 - 14.1 % [facility] Mean Platelet Volume 9.5 7.6 - 12.9 fL [facility] NRBC% auto 0.0 % [facility] NRBC Absolute 0.000 0.000 - 0.000 x10(3)/mc L [facility] Blood 07/28/2022 5:02 AM EDT 07/28/2022 5:24 AM EDT Narrative Resulting Agency Comment Spec In Lab Jody Collins MD HEMATOLOGY ORDERABLE S [facility] [place] [address] * (ABNORMAL) CRP, acute inflammation (07/28/2022 5:02 AM EDT) C-Reactive Protein 33.1(H) <=4.9 mg/L [facility] Blood 07/28/2022 5:02 AM EDT 07/28/2022 5:24 AM EDT Narrative Resulting Agency Comment Spec In Lab Jody Collins MD CHEMISTRY ORDERABLES [facility] [place] [address] * (ABNORMAL) Basic Metabolic Panel (non-fasting) (07/28/2022 5:02 AM EDT) Glucose 91 65 - 199 mg/dL [facility] Comment:Diabetes: >=200 mg/d L plus symptoms Blood Urea Nitrogen 10 8 - 18 mg/dL [facility] Creatinine 0.28(L) 0.70 - 1.20 mg/dL [facility] Sodium 138 135 - 145 mmol/L [facility] Potassium 4.0 3.5 - 5.0 mmol/L [facility] Comment: Please note: ??Patients with WBC >100,000 may have falsely elevated Potassium levels. ??For accurate Potassium quantification in these patients send serum separator tube (gold top) for subsequent determinations. ??Contact the Clinical Chemistry Laboratory if there are any questions. Chloride 103 98 - 107 mmol/L [facility] Carbon Dioxide 25 22 - 31 mmol/L [facility] Anion Gap 10 5 - 15 mmol/L [facility] Calcium 8.8 8.5 - 10.5 mg/dL [facility] Est Glomerular Filtration Rate 150 >=60 mL/min/1. 73 m?? [facility] Comment: This patient's estimated GFR [...] Collins MD CHEMISTRY ORDERABLES Performing Organization Address City/[facility]/[place] [address] * Differential, Automated (07/27/2022 2:45 AM EDT) Neutrophil % 48.7 % [facility] Neutrophil Absolute 2.57 1.70 - 6.10 x10(3)/[facility] Lymph % 40.6 % [facility] Lymphocytes Abs 2.1 0.9 - 3.2 x10(3)/[facility] Monocyte % 8.2 % [facility] Monocyte Abs 0.4 0.3 - 0.9 x10(3)/[facility] Eos % 1.5 % [facility] Eosinophils Abs 0.1 0.0 - 0.4 x10(3)/[facility] Basophil % 0.8 % [facility] Baso Absolute 0.0 0.0 - 0.1 x10(3)/[facility] Immature Gran % 0.20 % [facility] Comment: Immature granulocytes(IG's)percentage and absolute count will include metamyelocytes, myelocytes, and promyelocytes. Blood smears from CBCs yielding IG's will be scanned manually for concordance. If this scan disagrees with the automated IG or if promyelocytes are noted, a manual differential will be performed. Immature Gran Absolute 0.01 0.00 - 0.04 x10(3)/[facility] Blood 07/27/2022 2:45 AM EDT 07/27/2022 2:52 AM EDT Narrative Resulting Agency Comment Spec In Lab Jody Collins MD HEMATOLOGY ORDERABLE S Performing Organization Address City/[facility]/ZIP Co de Phone Number [facility] [place] [address] * (ABNORMAL) Hemogram (07/27/2022 2:45 AM EDT) White Blood Cell 5.3 4.0 - 9.5 x10(3)/mc L [facility] Red Blood Cell 4.27 4.00 - 5.21 x10(6)/mc L [facility] Hemoglobin 10.4(L) 11.7 - 15.5 g/dL [facility] Hematocrit 33.6(L) 35.7 - 45.8 % [facility] Mean Cell Volume 78.7(L) 82.6 - 94.4 fL [facility] Mean Cell Hemoglobin 24.4(L) 27.1 - 32.0 pg [facility] Mean Cell Hemoglobin Concentration 31.0(L) 31.7 - 35.0 g/dL [facility] Platelet 350 145 - 357 x10(3)/mc L [facility] RDW Standard Deviation 52.4(H) 37.0 - 46.0 fL [facility] RDW coefficient of variation 18.3(H) 11.5 - 14.1 % [facility] Mean Platelet Volume 9.4 7.6 - 12.9 fL [facility] NRBC% auto 0.0 % [facility] NRBC Absolute 0.000 0.000 - 0.000 x10(3)/mc L [facility] Blood 07/27/2022 2:45 AM EDT 07/27/2022 2:52 AM EDT Narrative Resulting Agency Comment Spec In Lab Jody Collins MD HEMATOLOGY ORDERABLE S [facility] [place] [address] * Lactate, whole blood, send to lab ([facility]) (07/27/2022 2:45 AM EDT) Lactate WB 1.2 0.5 - 2.2 mmol/L [facility] Blood 07/27/2022 2:45 AM EDT 07/27/2022 2:50 AM EDT Narrative Resulting Agency Comment Spec In Lab Shea Fox MD CHEMISTRY ORDERABLES Performing Organization Address [facility] Co de Phone Number [facility] [place] [place] [address] * Magnesium (07/27/2022 2:45 AM EDT) Magnesium 0.78 0.69 - 1.07 mmol/L [facility] Blood 07/27/2022 2:45 AM EDT 07/27/2022 2:52 AM EDT Narrative Resulting Agency Comment Spec In Lab Sharron Winters MD CHEMISTRY ORDERABLES Performing Organization Address [facility] de Phone Number [facility] [place] [place] [address] * (ABNORMAL) CRP, acute inflammation (07/27/2022 2:45 AM EDT) C-Reactive Protein 27.0(H) <=4.9 mg/L [facility] Blood 07/27/2022 2:45 AM EDT 07/27/2022 2:52 AM EDT Narrative Resulting Agency Comment Spec In Lab Jody Collins MD CHEMISTRY ORDERABLES Performing Organization Address [facility]/[place] de Phone Number [facility] [place] [place] [address] * (ABNORMAL) Sedimentation rate (07/27/2022 2:45 AM EDT) Sedimentation Rate Automated 105(H) 2 - 37 mm/hr [facility] Comment: Effective April 06, 2019 new capillary photometric technology has resulted in a change in reference ranges. It is recommended that each ESR result be reviewed with its own age appropriate reference range. Blood 07/27/2022 2:45 AM EDT 07/27/2022 2:52 AM EDT Narrative Resulting Agency Comment Spec In Lab Jody Collins MD HEMATOLOGY ORDERABLE S Performing Organization Address [facility] Co de Phone Number [facility] [place] [place] [address] * (ABNORMAL) Basic Metabolic Panel (non-fasting) (07/27/2022 2:45 AM EDT) Glucose 105 65 - 199 mg/dL [facility] Comment:Diabetes: >=200 mg/d L plus symptoms Blood Urea Nitrogen 12 8 - 18 mg/dL [facility] Creatinine 0.35(L) 0.70 - 1.20 mg/dL [facility] Sodium 139 135 - 145 mmol/L [facility] Potassium 4.1 3.5 - 5.0 mmol/L [facility] Comment: Please note: ??Patients with WBC >100,000 may have falsely elevated Potassium levels. ??For accurate Potassium quantification in these patients send serum separator tube (gold top) for subsequent determinations. ??Contact the Clinical Chemistry Laboratory if there are any questions. Chloride 103 98 - 107 mmol/L [facility] Carbon Dioxide 25 22 - 31 mmol/L [facility] Anion Gap 11 5 - 15 mmol/L [facility] Calcium 9.3 8.5 - 10.5 mg/dL [facility] Est Glomerular Filtration Rate 142 >=60 mL/min/1. 73 m?? [facility] Comment: This patient's estimated GFR [...] MD CHEMISTRY ORDERABLES Performing Organization Address [facility] Co de Phone Number [facility] [place] [place] [address] * Differential, Automated (07/26/2022 4:46 AM EDT) Pathologist [facility] Neutrophil % 46.4 % [facility] Neutrophil Absolute 2.25 1.70 - 6.10 x10(3)/[facility] Lymph % 43.0 % [facility] Lymphocytes Abs 2.1 0.9 - 3.2 x10(3)/[facility] Monocyte % 8.0 % [facility] Monocyte Abs 0.4 0.3 - 0.9 x10(3)/[facility] Eos % 1.6 % [facility] Eosinophils Abs 0.1 0.0 - 0.4 x10(3)/[facility] Basophil % 0.8 % [facility] Baso Absolute 0.0 0.0 - 0.1 x10(3)/[facility] Immature Gran % 0.20 % [facility] Comment: Immature granulocytes(IG's)percentage and absolute count will include metamyelocytes, myelocytes, and promyelocytes. Blood smears from CBCs yielding IG's will be scanned manually for concordance. If this scan disagrees with the automated IG or if promyelocytes are noted, a manual differential will be performed. Immature Gran Absolute 0.01 0.00 - 0.04 x10(3)/[facility] Blood 07/26/2022 4:46 AM EDT 07/26/2022 5:23 AM EDT Narrative Resulting Agency Comment Spec In Lab Jody Collins MD HEMATOLOGY ORDERABLE S [facility] [place] [address] * (ABNORMAL) Hemogram (07/26/2022 4:46 AM EDT) Pathologist [facility] White Blood Cell 4.9 4.0 - 9.5 x10(3)/mc L [facility] Red Blood Cell 4.07 4.00 - 5.21 x10(6)/mc L [facility] Hemoglobin 10.1(L) 11.7 - 15.5 g/dL [facility] Hematocrit 31.9(L) 35.7 - 45.8 % [facility] Mean Cell Volume 78.4(L) 82.6 - 94.4 fL [facility] Mean Cell Hemoglobin 24.8(L) 27.1 - 32.0 pg [facility] Mean Cell Hemoglobin Concentration 31.7 31.7 - 35.0 g/dL [facility] Platelet 348 145 - 357 x10(3)/mc L [facility] RDW Standard Deviation 52.4(H) 37.0 - 46.0 fL [facility] RDW coefficient of variation 18.3(H) 11.5 - 14.1 % [facility] Mean Platelet Volume 9.6 7.6 - 12.9 fL [facility] NRBC% auto 0.0 % [facility] NRBC Absolute 0.000 0.000 - 0.000 x10(3)/mc L [facility] Blood 07/26/2022 4:46 AM EDT 07/26/2022 5:23 AM EDT Narrative Resulting Agency Comment Spec In Lab Jody Collins MD HEMATOLOGY ORDERABLE S Performing Organization Address City/[facility]/ZIP Co de Phone Number [facility] [place] [place] [address] * (ABNORMAL) Sedimentation rate (07/26/2022 4:46 AM EDT) [facility] Sedimentation Rate Automated 102(H) 2 - 37 mm/hr [facility] Comment: Effective April 06, 2019 new capillary photometric technology has resulted in a change in reference ranges. It is recommended that each ESR result be reviewed with its own age appropriate reference range. Blood 07/26/2022 4:46 AM EDT 07/26/2022 5:23 AM EDT Narrative Resulting Agency Comment Spec In Lab Jody Collins MD HEMATOLOGY ORDERABLE S [facility] [place] [address] * (ABNORMAL) CRP, acute inflammation (07/26/2022 4:46 AM EDT) C-Reactive Protein 40.5(H) <=4.9 mg/L [facility] Blood 07/26/2022 4:46 AM EDT 07/26/2022 5:23 AM EDT Narrative Resulting Agency Comment Spec In Lab Jody Collins MD CHEMISTRY ORDERABLES [facility] [place] [address] * (ABNORMAL) Basic Metabolic Panel (non-fasting) (07/26/2022 4:46 AM EDT) Glucose 100 65 - 199 mg/dL [facility] Comment:Diabetes: >=200 mg/d L plus symptoms Blood Urea Nitrogen 13 8 - 18 mg/dL [facility] Creatinine 0.25(L) 0.70 - 1.20 mg/dL [facility] Sodium 139 135 - 145 mmol/L [facility] Potassium 3.8 3.5 - 5.0 mmol/L [facility] Comment: Please note: ??Patients with WBC >100,000 may have falsely elevated Potassium levels. ??For accurate Potassium quantification in these patients send serum separator tube (gold top) for subsequent determinations. ??Contact the Clinical Chemistry Laboratory if there are any questions. Chloride 103 98 - 107 mmol/L [facility] Carbon Dioxide 23 22 - 31 mmol/L [facility] Anion Gap 13 5 - 15 mmol/L [facility] Calcium 9.4 8.5 - 10.5 mg/dL [facility] Est Glomerular Filtration Rate 154 >=60 mL/min/1. 73 m?? [facility] Comment: This patient's estimated GFR [...] MD CHEMISTRY ORDERABLES Performing Organization Address [facility] Co de Phone Number [facility] [place] [address] * EKG 12 Lead (07/25/2022 12:42 PM EDT) Pathologist [facility] Ventricular rate 106 BPM MUSE SYSTEM Atrial Rate 106 BPM MUSE SYSTEM P-R Interval 120 ms MUSE SYSTEM QRS Duration 74 ms MUSE SYSTEM Q-T Interval 328 ms MUSE SYSTEM QTC Calculated (Bezet) 435 ms MUSE SYSTEM Calculated P Bentley 22 degrees MUSE SYSTEM Calculated R [place] 7 degrees MUSE SYSTEM Calculated T [place]ley 25 degrees MUSE SYSTEM INTERPRETATION Sinus tachycardia Possible Inferior infarct (cited on or before 07-JUL-2022) Abnormal ECG When compared with ECG of 07-JUL-2022 11:44, Nonspecific T wave abnormality no longer evident in Anterior leads Confirmed by MD Chowdary Daniel ([id number]) on 08/07/2022 5:45:44 PM MUSE SYSTEM 07/25/2022 12:4 2 PM EDT 08/07/2022 5:45 PM EDT Jody Collins MD ECG ORDERABLES Performing Organization Address [facility] Co de Phone Number MUSE SYSTEM * Differential, Automated (07/25/2022 4:37 AM EDT) Pathologist [facility] Neutrophil % 54.4 % [facility] Neutrophil Absolute 2.66 1.70 - 6.10 x10(3)/[facility] Lymph % 35.0 % [facility] Lymphocytes Abs 1.7 0.9 - 3.2 x10(3)/[facility] Monocyte % 8.6 % [facility] Monocyte Abs 0.4 0.3 - 0.9 x10(3)/[facility] Eos % 1.0 % [facility] Eosinophils Abs 0.0 0.0 - 0.4 x10(3)/[facility] Basophil % 0.6 % [facility] Baso Absolute 0.0 0.0 - 0.1 x10(3)/[facility] Immature Gran % 0.40 % [facility] Comment: Immature granulocytes(IG's)percentage and absolute count will include metamyelocytes, myelocytes, and promyelocytes. Blood smears from CBCs yielding IG's will be scanned manually for concordance. If this scan disagrees with the automated IG or if promyelocytes are noted, a manual differential will be performed. Immature Gran Absolute 0.02 0.00 - 0.04 x10(3)/[facility] Blood 07/25/2022 4:37 AM EDT 07/25/2022 4:50 AM EDT Narrative Resulting Agency Comment Spec In Lab Eddi Vázquez MD HEMATOLOGY ORDERABLE S Performing Organization Address City/State/[facility] Co de Phone Number [facility] [place] [place] [address] * (ABNORMAL) Hemogram (07/25/2022 4:37 AM EDT) White Blood Cell 4.9 4.0 - 9.5 x10(3)/mc L [facility] Red Blood Cell 4.16 4.00 - 5.21 x10(6)/mc L [facility] Hemoglobin 10.3(L) 11.7 - 15.5 g/dL [facility] Hematocrit 32.6(L) 35.7 - 45.8 % [facility] Mean Cell Volume 78.4(L) 82.6 - 94.4 fL [facility] Mean Cell Hemoglobin 24.8(L) 27.1 - 32.0 pg [facility] Mean Cell Hemoglobin Concentration 31.6(L) 31.7 - 35.0 g/dL [facility] Platelet 357 145 - 357 x10(3)/mc L [facility] RDW Standard Deviation 52.5(H) 37.0 - 46.0 fL [facility] RDW coefficient of variation 18.5(H) 11.5 - 14.1 % [facility] Mean Platelet Volume 9.6 7.6 - 12.9 fL [facility] NRBC% auto 0.0 % [facility] NRBC Absolute 0.000 0.000 - 0.000 x10(3)/mc L [facility] Blood 07/25/2022 4:37 AM EDT 07/25/2022 4:50 AM EDT Narrative Resulting Agency Comment Spec In Lab Eddi Vázquez MD HEMATOLOGY ORDERABLE S Performing Organization Address City/State/[facility] Co de Phone Number [facility] [place] [place] [address] * (ABNORMAL) Basic Metabolic Panel (non-fasting) (07/25/2022 4:37 AM EDT) Glucose 99 65 - 199 mg/dL [facility] Comment:Diabetes: >=200 mg/d L plus symptoms Blood Urea Nitrogen 13 8 - 18 mg/dL [facility] Creatinine 0.49(L) 0.70 - 1.20 mg/dL [facility] Sodium 138 135 - 145 mmol/L [facility] Potassium 3.9 3.5 - 5.0 mmol/L [facility] Comment: Please note: ??Patients with WBC >100,000 may have falsely elevated Potassium levels. ??For accurate Potassium quantification in these patients send serum separator tube (gold top) for subsequent determinations. ??Contact the Clinical Chemistry Laboratory if there are any questions. Chloride 105 98 - 107 mmol/L [facility] Carbon Dioxide 23 22 - 31 mmol/L [facility] Anion Gap 10 5 - 15 mmol/L [facility] Calcium 8.9 8.5 - 10.5 mg/dL [facility] Est Glomerular Filtration Rate 131 >=60 mL/min/1. 73 m?? [facility] Comment: This patient's estimated GFR [...] In Lab Eddi Vázquez MD [place] [address] * IR All Drainage Procedures (07/24/2022 4:02 PM EDT) Anatomical Region Laterality Modality X-Ray Angiograph y Impressions 07/25/2022 8:08 AM EDT Percutaneous placement of a 10 Pashto drainage catheter into subcutaneous collection adjacent to RIGHT SI joint screw, yielding 5 mL of bloody fluid. Percutaneous placement of a 8 Pashto drainage catheter into subcutaneous collection adjacent to [...] who have questions please contact the health urgent care that requested your imaging first. ? Electronically signed by: Anurag Kumar MD, [facility] ([phone]), at 07/25/2022 8:08 AM Narrative 07/25/2022 8:08 [...] complications. IMPRESSION Percutaneous placement of a 10 Pashto drainage catheter intosubcutaneous collection adjacent to RIGHT SI joint screw, yielding 5 mL of bloodyfluid. Percutaneous placement of a 8 Pashto drainage catheter into subcutaneous collection adjacent to [...] patients who have questions please contactthe health urgent care that requested your imaging first. Electronically signed by: Anurag Kumar MD, [facility]([phone]), at 07/25/2022 8:08 AM Ernesto Willingham MD IMG IR ORDERABLES * Anaerobic Culture (07/24/2022 3:47 PM EDT) Anaerobic Culture No anaerobic organisms isolated [facility] Fluid 07/24/2022 3:47 PM EDT 07/24/2022 4:43 PM EDT Comment:SI/L5 Narrative Resulting Agency Comment Spec In Lab Anurag Kumar MD MICROBIOLOGY - GEN ERAL ORDERABLES [facility] [place] [place] [address] * Crystal Exam Body Fluid Other (07/24/2022 3:47 PM EDT) Crystal BF Type Other [facility] Comment: Interpret with caution due to questionable sample integrity caused by sample age. Results may be inaccurate due to presence of many degenerated cells. Crystal Exam, Fld None Seen [facility] Other 07/24/2022 3:47 PM EDT 07/24/2022 4:31 PM EDT Narrative Resulting Agency Comment Spec In Lab Anurag Kumar MD BODY FLUIDS AND ST [place] ORDERABLES [facility] [place] [address] * Cell Count Body Fluid Other (07/24/2022 3:47 PM EDT) Body Fluid Source Other [facility] Comment: Interpret with caution due to questionable sample integrity caused by sample age. Results may be inaccurate due to presence of many degenerated cells. Called by: [facility], Read back by: carlin alejo, Date/Time:07/24/22 17:51. Color, Fld Red [facility] Comment: Interpret with caution due to questionable sample integrity caused by sample age. Results may be inaccurate due to presence of many degenerated cells. Appearance, Fld Cloudy [facility] Comment: Interpret with caution due to questionable sample integrity caused by sample age. Results may be inaccurate due to presence of many degenerated cells. WBC Count, Fld Not Perf [facility] Comment: Interpret with caution due to questionable sample integrity caused by sample age. Results may be inaccurate due to presence of many degenerated cells. All body fluid results should always be interpreted in light of the total clinical presentation of the patient, including clinical history, data from additional tests and other appropriate information. Polymorphonuclear cells BF % Not Perf [facility] Comment: Interpret with caution due to questionable sample integrity caused by sample age. Results may be inaccurate due to presence of many degenerated cells. Polymorphonuclear cell percent and absolute values may contain Neutrophils, Eosinophils, and Basophils. Body fluid smear will be scanned manually for concordance. Mononuclear cells BF % Not Perf [facility] Comment: Interpret with caution due to questionable sample integrity caused by sample age. Results may be inaccurate due to presence of many degenerated cells. Mononuclear cell percent and absolute values may contain Lymphocytes and Monocytes. Body fluid smear will be scanned manually for concordance. Polymorphonuclear cells BF ABS Not Perf [facility] Comment: Interpret with caution due to questionable sample integrity caused by sample age. Results may be inaccurate due to presence of many degenerated cells. Polymorphonuclear cell percent and absolute values may contain Neutrophils, Eosinophils, and Basophils. Body fluid smear will be scanned manually for concordance. Mononuclear cells BF ABS Not Perf [facility] Comment: Interpret with caution due [...] Anurag Kumar MD B[facility]IDS [facility] [place] [place] [address] * Abscess/Wound Aspirate Culture Abscess; Pelvic (07/24/2022 3:47 PM EDT) Abscess/Wound Aspirate Culture No growth [facility] Gram Stain Many Neutrophils seen No microorganisms seen. [facility] Abscess [place] / Unknown 07/24/2022 3:47 PM EDT 07/24/2022 4:43 PM EDT Comment:SI/L5 Narrative Resulting Agency Comment Spec In Lab Anurag Kumar MD MICROBIOLOGY - GEN ERAL ORDERABLES Performing Organization Address City/[facility]/ZIP Co de Phone Number [facility] [place] [address] * AFB culture (07/24/2022 3:22 PM EDT) Acid Fast Bacilli Culture No Acid Fast Bacilli isolated [facility] Acid Fast Stain No Acid Fast Bacilli seen [facility] Vertebra LUMBAR SPINE STRUCTURE / Unknown 07/24/2022 3:22 PM EDT 07/27/2022 12:32 PM EDT Comment:LUMBAR ABSCESS Narrative Resulting Agency Comment Spec In Lab Jody Collins MD MICROBIOLOGY - GENER AL ORDERABLES Performing Organization Address [facility] Co de Phone Number [facility] [place] [address] * Calcofluor White Stain (07/24/2022 3:22 PM EDT) Calcofluor Stain Calcofluor White Preparation: Negative [facility] Abscess LUMBAR SPINE STRUCTURE / Unknown 07/24/2022 3:22 PM EDT 07/27/2022 12:30 PM EDT Comment:Lumbar abscess Narrative Resulting Agency Comment Spec In Lab Jody Collins MD MICROBIOLOGY - GENER AL ORDERABLES Performing Organization Address City/[facility] Co de Phone Number [facility] [place] [place] [address] * Fungus culture (07/24/2022 3:22 PM EDT) Fungus Culture No Fungus isolated [facility] Abscess LUMBAR SPINE STRUCTURE / Unknown 07/24/2022 3:22 PM EDT 07/27/2022 12:30 PM EDT Comment:Lumbar abscess Narrative Resulting Agency Comment Spec In Lab Jody Collins MD MICROBIOLOGY - GENER AL ORDERABLES Performing Organization Address [facility] Co de Phone Number [facility] [place] [place] [address] * Anaerobic Culture (07/24/2022 3:22 PM EDT) Anaerobic Culture No anaerobic organisms isolated [facility] Fluid 07/24/2022 3:22 PM EDT 07/24/2022 4:44 PM EDT Comment:Lumbar abscess Narrative Resulting Agency Comment Spec In Lab Mal Menchaca MD MICROBIOLOGY - GENER AL ORDERABLES Performing Organization Address [facility] Co de Phone Number [facility] [place] [place] [address] * Body Fluid Culture, Aerobic (07/24/2022 3:22 PM EDT) Body Fluid Culture No growth [facility] Gram Stain Few Neutrophils seen No microorganisms seen. [facility] Fluid 07/24/2022 3:22 PM EDT 07/24/2022 4:44 PM EDT Comment:Lumbar abscess Narrative Resulting Agency Comment Spec In Lab Mal Menchaca MD MICROBIOLOGY - GENER AL ORDERABLES Performing Organization Address City/[facility] Co de Phone Number [facility] [place] [place] [address] * Crystal Exam Body Fluid Other (07/24/2022 3:22 PM EDT) Crystal BF Type Other [facility] Comment: Interpret with caution due to questionable sample integrity caused by sample age. Results may be inaccurate due to presence of many degenerated cells. Crystal Exam, Fld None Seen [facility] Other 07/24/2022 3:22 PM EDT 07/24/2022 4:34 PM EDT Narrative Resulting Agency Comment Spec In Lab Ernesto Willingham MD BODY FLUIDS AND [place] ORDERABLES [facility] [place] [address] * Cell Count Body Fluid Other (07/24/2022 3:22 PM EDT) Body Fluid Source Other [facility] Comment: Interpret with caution due to questionable sample integrity caused by sample age. Results may be inaccurate due to presence of many degenerated cells. Called by: millicent, Read back by: carlin alejo, Date/Time:07/24/22 17:51. Color, Fld Red [facility] Comment: Interpret with caution due to questionable sample integrity caused by sample age. Results may be inaccurate due to presence of many degenerated cells. Appearance, Fld Cloudy [facility] Comment: Interpret with caution due to questionable sample integrity caused by sample age. Results may be inaccurate due to presence of many degenerated cells. WBC Count, Fld Not Perf [facility] Comment: Interpret with caution due to questionable sample integrity caused by sample age. Results may be inaccurate due to presence of many degenerated cells. All body fluid results should always be interpreted in light of the total clinical presentation of the patient, including clinical history, data from additional tests and other appropriate information. Polymorphonuclear cells BF % Not Perf [facility] Comment: Interpret with caution due to questionable sample integrity caused by sample age. Results may be inaccurate due to presence of many degenerated cells. Polymorphonuclear cell percent and absolute values may contain Neutrophils, Eosinophils, and Basophils. Body fluid smear will be scanned manually for concordance. Mononuclear cells BF % Not Perf [facility] Comment: Interpret with caution due to questionable sample integrity caused by sample age. Results may be inaccurate due to presence of many degenerated cells. Mononuclear cell percent and absolute values may contain Lymphocytes and Monocytes. Body fluid smear will be scanned manually for concordance. Polymorphonuclear cells BF ABS Not Perf [facility] Comment: Interpret with caution due to questionable sample integrity caused by sample age. Results may be inaccurate due to presence of many degenerated cells. Polymorphonuclear cell percent and absolute values may contain Neutrophils, Eosinophils, and Basophils. Body fluid smear will be scanned manually for concordance. Mononuclear cells BF ABS Not Perf [facility] Comment: Interpret with caution due [...] MD BODY FLUIDS AND STOO LS ORDERABLES [facility] [place] [place] [address] * Differential, Automated (07/24/2022 5:25 AM EDT) Neutrophil % 46.6 % [facility] Neutrophil Absolute 2.04 1.70 - 6.10 x10(3)/[facility] Lymph % 42.9 % [facility] Lymphocytes Abs 1.9 0.9 - 3.2 x10(3)/[facility] Monocyte % 8.0 % [facility] Monocyte Abs 0.4 0.3 - 0.9 x10(3)/[facility] Eos % 1.8 % [facility] Eosinophils Abs 0.1 0.0 - 0.4 x10(3)/[facility] Basophil % 0.7 % [facility] Baso Absolute 0.0 0.0 - 0.1 x10(3)/[facility] Immature Gran % 0.00 % [facility] Comment: Immature granulocytes(IG's)percentage and absolute count will include metamyelocytes, myelocytes, and promyelocytes. Blood smears from CBCs yielding IG's will be scanned manually for concordance. If this scan disagrees with the automated IG or if promyelocytes are noted, a manual differential will be performed. Immature Gran Absolute 0.00 0.00 - 0.04 x10(3)/[facility] Blood 07/24/2022 5:25 AM EDT 07/24/2022 5:57 AM EDT Narrative Resulting Agency Comment Spec In Lab Eddi Vázquez MD HEMATOLOGY ORDERABLE S [facility] [place] [address] * (ABNORMAL) Hemogram (07/24/2022 5:25 AM EDT) White Blood Cell 4.4 4.0 - 9.5 x10(3)/mc L [facility] Red Blood Cell 3.92(L) 4.00 - 5.21 x10(6)/mc L [facility] Hemoglobin 9.6(L) 11.7 - 15.5 g/dL [facility] Hematocrit 31.4(L) 35.7 - 45.8 % [facility] Mean Cell Volume 80.1(L) 82.6 - 94.4 fL [facility] Mean Cell Hemoglobin 24.5(L) 27.1 - 32.0 pg [facility] Mean Cell Hemoglobin Concentration 30.6(L) 31.7 - 35.0 g/dL [facility] Platelet 343 145 - 357 x10(3)/mc L [facility] RDW Standard Deviation 54.7(H) 37.0 - 46.0 fL [facility] RDW coefficient of variation 18.7(H) 11.5 - 14.1 % [facility] Mean Platelet Volume 9.5 7.6 - 12.9 fL [facility] NRBC% auto 0.0 % [facility] NRBC Absolute 0.000 0.000 - 0.000 x10(3)/ L [facility] Blood 07/24/2022 5:25 AM EDT 07/24/2022 5:57 AM EDT Narrative Resulting Agency Comment Spec In Lab Eddi Vázquez MD HEMATOLOGY ORDERABLE S [facility] [place] [address] * (ABNORMAL) Basic Metabolic Panel (non-fasting) (07/24/2022 5:25 AM EDT) Glucose 89 65 - 199 mg/dL [facility] Comment:Diabetes: >=200 mg/d L plus symptoms Blood Urea Nitrogen 11 8 - 18 mg/dL [facility] Creatinine 0.34(L) 0.70 - 1.20 mg/dL [facility] Sodium 138 135 - 145 mmol/L [facility] Potassium 3.9 3.5 - 5.0 mmol/L [facility] Comment: Please note: ??Patients with WBC >100,000 may have falsely elevated Potassium levels. ??For accurate Potassium quantification in these patients send serum separator tube (gold top) for subsequent determinations. ??Contact the Clinical Chemistry Laboratory if there are any questions. Chloride 104 98 - 107 mmol/L [facility] Carbon Dioxide 23 22 - 31 mmol/L [facility] Anion Gap 11 5 - 15 mmol/L [facility] Calcium 9.1 8.5 - 10.5 mg/dL [facility] Est Glomerular Filtration Rate 143 >=60 mL/min/1. 73 m?? [facility] Comment: This patient's estimated GFR [...] In Lab Eddi Vázquez MD CHEMISTRY ORDERABLES [facility] [place] [address] * Differential, Automated (07/23/2022 3:00 AM EDT) Neutrophil % 50.7 % [facility] Neutrophil Absolute 3.15 1.70 - 6.10 x10(3)/mcL [facility] Lymph % 40.3 % [facility] Lymphocytes Abs 2.5 0.9 - 3.2 x10(3)/[facility] Monocyte % 7.2 % [facility] Monocyte Abs 0.4 0.3 - 0.9 x10(3)/[facility] Eos % 1.1 % [facility] Eosinophils Abs 0.1 0.0 - 0.4 x10(3)/[facility] Basophil % 0.5 % [facility] Baso Absolute 0.0 0.0 - 0.1 x10(3)/[facility] Immature Gran % 0.20 % [facility] Comment: Immature granulocytes(IG's)percentage and absolute count will include metamyelocytes, myelocytes, and promyelocytes. Blood smears from CBCs yielding IG's will be scanned manually for concordance. If this scan disagrees with the automated IG or if promyelocytes are noted, a manual differential will be performed. Immature Gran Absolute 0.01 0.00 - 0.04 x10(3)/[facility] Blood 07/23/2022 3:00 AM EDT 07/23/2022 3:02 AM EDT Narrative Resulting Agency Comment Spec In Lab Eddi Vázquez MD HEMATOLOGY ORDERABLE S Performing Organization Address City/State/[facility] Co de Phone Number [facility] [place] [place] [address] * (ABNORMAL) Hemogram (07/23/2022 3:00 AM EDT) White Blood Cell 6.2 4.0 - 9.5 x10(3)/mc L [facility] Red Blood Cell 4.19 4.00 - 5.21 x10(6)/mc L [facility] Hemoglobin 10.5(L) 11.7 - 15.5 g/dL [facility] Hematocrit 32.7(L) 35.7 - 45.8 % [facility] Mean Cell Volume 78.0(L) 82.6 - 94.4 fL [facility] Mean Cell Hemoglobin 25.1(L) 27.1 - 32.0 pg [facility] Mean Cell Hemoglobin Concentration 32.1 31.7 - 35.0 g/dL [facility] Platelet 364(H) 145 - 357 x10(3)/mc L [facility] RDW Standard Deviation 53.3(H) 37.0 - 46.0 fL [facility] RDW coefficient of variation 18.6(H) 11.5 - 14.1 % [facility] Mean Platelet Volume 9.0 7.6 - 12.9 fL [facility] NRBC% auto 0.0 % [facility] NRBC Absolute 0.000 0.000 - 0.000 x10(3)/mc L [facility] Blood 07/23/2022 3:00 AM EDT 07/23/2022 3:02 AM EDT Narrative Resulting Agency Comment Spec In Lab Eddi Vázquez MD HEMATOLOGY ORDERABLE S [facility] [place] [address] * (ABNORMAL) Basic Metabolic Panel (non-fasting) (07/23/2022 3:00 AM EDT) Glucose 101 65 - 199 mg/dL [facility] Comment:Diabetes: >=200 mg/d L plus symptoms Blood Urea Nitrogen 9 8 - 18 mg/dL [facility] Creatinine 0.31(L) 0.70 - 1.20 mg/dL [facility] Sodium 141 135 - 145 mmol/L [facility] Potassium 3.6 3.5 - 5.0 mmol/L [facility] Comment: Please note: ??Patients with WBC >100,000 may have falsely elevated Potassium levels. ??For accurate Potassium quantification in these patients send serum separator tube (gold top) for subsequent determinations. ??Contact the Clinical Chemistry Laboratory if there are any questions. Chloride 105 98 - 107 mmol/L [facility] Carbon Dioxide 23 22 - 31 mmol/L [facility] Anion Gap 13 5 - 15 mmol/L [facility] Calcium 8.9 8.5 - 10.5 mg/dL [facility] Est Glomerular Filtration Rate 146 >=60 mL/min/1. 73 m?? [facility] Comment: This patient's estimated [...] MD CHEMISTRY ORDERABLES Performing Organization Address [facility] Co de Phone Number [facility] [place] [address] * Blood culture (07/22/2022 10:47 PM EDT) Blood Culture No growth at 5 days. [facility] Blood VENOUS CATHETER / Unknown 07/22/2022 10:47 PM EDT 07/22/2022 10:48 PM EDT Comment:add-on Narrative Resulting Agency Comment Spec In Lab Samuel Comer MD MICROBIOLOGY - BLOOD ORDERABLES Performing Organization Address [facility] Co de Phone Number [facility] [place] [place] [address] * Anaerobic Culture (07/22/2022 9:30 PM EDT) Anaerobic Culture No anaerobic organisms isolated [facility] Fluid 07/22/2022 9:30 PM EDT 07/22/2022 9:45 PM EDT Narrative Resulting Agency Comment Spec In Lab Samuel Comer MD MICROBIOLOGY - GENER AL ORDERABLES Performing Organization Address [facility] Co de Phone Number [facility] [place] [place] [address] * Body Fluid Culture, Aerobic (07/22/2022 9:30 PM EDT) Body Fluid Culture No growth to date. [facility] Gram Stain Many Neutrophils seen No microorganisms seen. [facility] Fluid 07/22/2022 9:30 PM EDT 07/22/2022 9:45 PM EDT Narrative Resulting Agency Comment Spec In Lab Samuel Comer MD MICROBIOLOGY - GENER AL ORDERABLES Performing Organization Address [facility] Co de Phone Number [facility] [place] [place] [address] * Cell Count Body Fluid Other (07/22/2022 9:30 PM EDT) Body Fluid Source Other [facility] Color, Fld Red [facility] Appearance, Fld Clotted [facility] WBC Count, Fld Clotted [facility] Comment: Called by: CHARLEY, Read back by: Yarelis Galdamez, Date/Time:07/22/22 21:56. All body fluid results should always be interpreted in light of the total clinical presentation of the patient, including clinical history, data from additional tests and other appropriate information. Polymorphonuclear cells BF % Clotted % [facility] Comment: Polymorphonuclear cell percent and absolute values may contain Neutrophils, Eosinophils, and Basophils. Body fluid smear will be scanned manually for concordance. Mononuclear cells BF % Clotted % [facility] Comment: Mononuclear cell percent and absolute values may contain Lymphocytes and Monocytes. Body fluid smear will be scanned manually for concordance. Polymorphonuclear cells BF ABS Clotted /[facility] Comment: Polymorphonuclear cell percent and absolute values may contain Neutrophils, Eosinophils, and Basophils. Body fluid smear will be scanned manually for concordance. Mononuclear cells BF ABS Clotted /[facility] LABORATORY Comment: Mononuclear cell percent and absolute values may contain Lymphocytes and Monocytes. Body fluid smear will be scanned manually for concordance. Other 07/22/2022 9:30 PM EDT 07/22/2022 9:38 PM EDT Narrative Resulting Agency Comment Spec In Lab Alek Tavares MD BODY FLUIDS AND STOO LS ORDERABLES Performing Organization Address City/[facility]/ZIP Co de Phone Number [facility] [place] [address] * Blood culture (07/22/2022 9:15 PM EDT) Blood Culture No growth at 5 days. [facility] Blood 07/22/2022 9:15 PM EDT 07/22/2022 9:29 PM EDT Comment:L AC Narrative Resulting Agency Comment Spec In Lab Alek Tavares MD MICROBIOLOGY - BLOOD ORDERABLES [facility] [place] [address] * CT Lumbar Spine w Contrast (07/22/2022 [...] who have questions please contact the health urgent care that requested your imaging first. ? Electronically signed by: Jamaal Villafuerte [facility] ([phone]), at 07/22/2022 8:03 PM Narrative 07/22/2022 8:03 [...] patients who have questions please contactthe health urgent care that requested your imaging first. Electronically signed by: Jamaal Villafuerte [facility]([phone]), at 07/22/2022 8:03 PM Marie Telles MD IMG CT ORDERABLES * Differential, Automated (07/22/2022 7:12 PM EDT) Neutrophil % 53.7 % [facility] Neutrophil Absolute 3.01 1.70 - 6.10 x10(3)/[facility] LABORATORY Lymph % 37.4 % [facility] LABORATORY Lymphocytes Abs 2.1 0.9 - 3.2 x10(3)/[facility] LABORATORY Monocyte % 6.2 % [facility] Monocyte Abs 0.4 0.3 - 0.9 x10(3)/[facility] LABORATORY Eos % 1.4 % [facility] LABOR[facility]ORY Eosinophils Abs 0.1 0.0 - 0.4 x10(3)/[facility] LABORATORY Basophil % 1.1 % [facility] Baso Absolute 0.1 0.0 - 0.1 x10(3)/[facility] LABORATORY Immature Gran % 0.20 % [facility] Comment: Immature granulocytes(IG's)percentage and absolute count will include metamyelocytes, myelocytes, and promyelocytes. Blood smears from CBCs yielding IG's will be scanned manually for concordance. If this scan disagrees with the automated IG or if promyelocytes are noted, a manual differential will be performed. Immature Gran Absolute 0.01 0.00 - 0.04 x10(3)/mcL [facility] Blood 07/22/2022 7:12 PM EDT 07/22/2022 7:21 PM EDT Narrative Resulting Agency Comment Spec In Lab Pyhllis SIMMS HEMATOLOGY ORDERABLE S [facility] [place] [address] * (ABNORMAL) Hemogram (07/22/2022 7:12 PM EDT) White Blood Cell 5.6 4.0 - 9.5 x10(3)/mc L [facility] Red Blood Cell 4.58 4.00 - 5.21 x10(6)/mc L [facility] Hemoglobin 11.2(L) 11.7 - 15.5 g/dL [facility] Hematocrit 36.2 35.7 - 45.8 % [facility] Mean Cell Volume 79.0(L) 82.6 - 94.4 fL [facility] Mean Cell Hemoglobin 24.5(L) 27.1 - 32.0 pg [facility] Mean Cell Hemoglobin Concentration 30.9(L) 31.7 - 35.0 g/dL [facility] Platelet 449(H) 145 - 357 x10(3)/mc L [facility] RDW Standard Deviation 52.9(H) 37.0 - 46.0 fL [facility] RDW coefficient of variation 18.3(H) 11.5 - 14.1 % [facility] Mean Platelet Volume 9.2 7.6 - 12.9 fL [facility] NRBC% auto 0.0 % [facility] LABORATORY NRBC Absolute 0.000 0.000 - 0.000 x10(3)/mc L [facility] Blood 07/22/2022 7:12 PM EDT 07/22/2022 7:21 PM EDT Narrative Resulting Agency Comment Spec In Lab Phyllis SIMMS HEMATOLOGY ORDERABLE S [facility] [place] [place] [address] * (ABNORMAL) CRP, acute inflammation (07/22/2022 7:12 PM EDT) C-Reactive Protein 48.9(H) <=4.9 mg/L [facility] Blood 07/22/2022 7:12 PM EDT 07/22/2022 7:21 PM EDT Narrative Resulting Agency Comment Spec In Lab Amarilis Carcamo DO CHEMISTRY O RDERABLES [facility] [place] [place] [address] * (ABNORMAL) Sedimentation rate (07/22/2022 7:12 PM EDT) Sedimentation Rate Automated >119(H) 2 - 37 mm/hr [facility] Comment: Effective April 06, 2019 new capillary photometric technology has resulted in a change in reference ranges. It is recommended that each ESR result be reviewed with its own age appropriate reference range. Blood 07/22/2022 7:12 PM EDT 07/22/2022 7:21 PM EDT Narrative Resulting Agency Comment Spec In Lab Amarilis Carcamo DO HEMATOLOGY ORDERABLES Performing Organization Address City/[facility]/ZIP Co de Phone Number [facility] [place] [address] * (ABNORMAL) Basic Metabolic Panel (non-fasting) (07/22/2022 7:12 PM EDT) Glucose 99 65 - 199 mg/dL [facility] Comment:Diabetes: >=200 mg/d L plus symptoms Blood Urea Nitrogen 10 8 - 18 mg/dL [facility] Creatinine 0.34(L) 0.70 - 1.20 mg/dL [facility] Sodium 139 135 - 145 mmol/L [facility] Potassium 3.8 3.5 - 5.0 mmol/L [facility] Comment: Please note: ??Patients with WBC >100,000 may have falsely elevated Potassium levels. ??For accurate Potassium quantification in these patients send serum separator tube (gold top) for subsequent determinations. ??Contact the Clinical Chemistry Laboratory if there are any questions. Chloride 103 98 - 107 mmol/L [facility] Carbon Dioxide 26 22 - 31 mmol/L [facility] Anion Gap 10 5 - 15 mmol/L [facility] Calcium 9.4 8.5 - 10.5 mg/dL [facility] Est Glomerular Filtration Rate 143 >=60 mL/min/1. 73 m?? [facility] Comment: This patient's estimated GFR [...] In Lab Marie Telles MD CHEMISTRY ORDERABLES [facility] [place] [address] documented in this encounter Visit Diagnoses Diagnosis [...] documented as of this encounter Care Teams Driller Multiple Spindle Relationship Specialty Start Date End Date Lorna Bal APRN [address] [place] [address] PCP - General Family Medicine 05/27/18 documented as of this encounter
--- OUTSIDE RECORDS SUMMARY | 2023-12-29 14:06 | XMS_ITS | Encounter Summary ---
Author Organization [facility] [place] [address] Care Team Providers Care Operations Lieutenant Name Role Phone Lorna Bal APRN Primary Care Provider +1 [phone] Encounter Details Date Type Department Care Team (Late st Contact Info) Description 07/15/2022 Telephone [place] [phone] Valentina Stanton Social History Tobacco Use Types Packs/Day Years Used Date Smoking Tobacco: Never Smokeless Tobacco: Never Comments:NO SMOKERS IN THE H OME Alcohol Use Standard Drinks/Week Comments No 0 (1 standard drink = 0.6 oz pur e alcohol) [facility] Inpatient Questions Answer Date Recorded Does [...] alert. She is taking levofloxacin as prescribed. [facility] labs today. We talked about the [...] PM EST Office [place] [address] Hollie Ambriz MD [facility] [place] [address] documented as of this encounter Visit Diagnoses Not on filedocumented in this encounter Care Teams Operations Lieutenant Relationship Specialty Start Date End Date Lorna Bal APRN [address] [place] [address] PCP - General Family Medicine 05/27/18 documented as of this encounter
--- OUTSIDE RECORDS SUMMARY | 2023-12-29 14:06 | XMS_ITS | Encounter Summary ---
Author Organization [facility] Address [facility] [place] [address] Care Team Providers Care Agency Sales Representative Name Role Phone Lorna Bal APRN Primary Care Provider [phone] [phone] Encounter Details Date Type Department Care Team (Late st Contact Info) Description 07/17/2022 Telephone [place] [phone] Jamaal Estrada MD [facility] [place] [address] Social History Tobacco Use Types Packs/Day Years [...] EST Office Visit [place] [address] Hollie Ambriz MD [facility] [place] [address] documented as of this encounter Visit Diagnoses Not on filedocumented in this encounter Care Teams Agency Sales Representative Relationship Specialty Start Date End Date Lorna Bal APRN [address] [place] [address] PCP - General Family Medicine 05/27/18 documented as of this encounter
--- OUTSIDE RECORDS SUMMARY | 2023-12-29 14:06 | XMS_ITS | Encounter Summary ---
Author Organization [facility] [place] [address] Care Team Providers Care Seal Extrusion Operator Name Role Phone Lorna Bal APRN Primary Care Provider +1 [phone] Encounter Details Date Type Department Care Team (Late st Contact Info) Description 07/09/2022 Notes Only Infectious Disease at [facility] [phone] Mesha Mckeon, RN Social History Tobacco Use [...] AM EDT Infectious Disease Department Faxed to [facility] and [facility] on 07/09/22 at 0950 Fax confirmation on 07/09/22 at 0952 Document(s) faxed: Standing labs documented in this encounter Plan of Treatment Upcoming Encounters Date Type Department Care Team (Late st Contact Info) Description 06/02/2024 12:30 PM EST Office [place] [address] Hollie Ambriz MD [facility] [place] [address] documented as of this encounter Visit Diagnoses Not on filedocumented in this encounter Additional Health Concerns Infection Onset Date Last Indicated Resolved Time Parainfluenza Virus 06/28/2022 06/28/2022 07/10/19 8:09 PM EDT documented as of this encounter Care Teams Seal Extrusion Operator Relationship Specialty Start Date End Date Lorna Bal APRN [address] [place] [address] PCP - General Family Medicine 05/27/18 documented as of this encounter
--- OUTSIDE RECORDS SUMMARY | 2023-12-29 14:06 | XMS_ITS | Encounter Summary ---
[place] [address] Care Team Providers Care Ferris Wheel Attendant Name Role Phone Lorna Bal APRN Primary Care Provider +1 [phone] Encounter Details Date Type Department Care Team [...] EST Office Visit [place] [phone] Hollie Ambriz MD [facility] INFECTIOUS [place] [address] documented as of this encounter Visit Diagnoses Not on filedocumented in this encounter Care Teams Ferris Wheel Attendant Relationship Specialty Start Date End Date Lorna Bal APRN [address] [place] [address] PCP - General Family Medicine 05/27/18 documented as of this encounter
--- OUTSIDE RECORDS SUMMARY | 2023-12-29 14:06 | XMS_ITS | Encounter Summary ---
Author Organization [facility] Address [facility] Benjamin [facility] [place] [address] Care Team Providers Care Steam And Gas Turbine Assembler Name Role Phone Lorna Bal APRN Primary Care Provider [phone] [phone] Encounter Details Date Type Department Care Team (Late st Contact Info) Description 07/12/2022 [place] [address] [facility] INFECTIOUS [place] [address] Social History Tobacco Use Types Packs/Day Years [...] Office [place] [address] [facility] INFECTIOUS [place] [address] documented as of this encounter Visit Diagnoses Not on filedocumented in this encounter Care Teams Steam And Gas Turbine Assembler Relationship Specialty Start Date End Date Lorna Bal APRN [address] [place] [address] PCP - General Family Medicine 05/27/18 documented as of this encounter
--- OUTSIDE RECORDS SUMMARY | 2023-12-29 14:06 | XMS_ITS | Encounter Summary ---
Author Organization [facility] Benjamin [facility] [place] [address] Care Team Providers Care Podiatric Surgeon Name Role Phone Lorna Bal APRN Primary Care Provider [phone] [phone] Encounter Details Date Type Department Care Team (Late st Contact Info) Description 07/22/2022 Orders [place] [address] Yury Gibbons MD [facility] [place] [address] Social History Tobacco Use Types Packs/Day Years [...] PM EST Office [place] [address] Hollie Ambriz MD [facility] [place] [address] documented as of this encounter Visit Diagnoses Not on filedocumented in this encounter Care Teams Podiatric Surgeon Relationship Specialty Start Date End Date Lorna Bal APRN [address] [place] [address] PCP - General Family Medicine 05/27/18 documented as of this encounter
--- OUTSIDE RECORDS SUMMARY | 2023-12-29 14:06 | XMS_ITS | Encounter Summary ---
Author Organization [facility] Benjamin [facility] [place] [address] Care Team Providers Care Stitcher Special Machine Name Role Phone Lorna Bal APRN Primary Care Provider [phone] [phone] Encounter Details Date Type Department Care Team (Late st Contact Info) Description 07/22/2022 Notes Only Infectious Disease at [facility] [place] [address] Mesha Mckeon, RN Social History Tobacco Use [...] 07/22/2022 1:28 PM EDT Received call from [facility] who informed this bid writer that they are unable to obtain [...] PM EST Office Visit [place] [address] Hollie Ambriz MD [facility] [place] [address] documented as of this encounter Visit Diagnoses Not on filedocumented in this encounter Care Teams Stitcher Special Machine Relationship Specialty Start Date End Date Lorna Bal APRN [address] [place] [address] PCP - General Family Medicine 05/27/18 documented as of this encounter
--- OUTSIDE RECORDS SUMMARY | 2023-12-29 14:07 | XMS_ITS | Encounter Summary ---
Author Organization [facility] Address [facility] [place] [address] Care Team Providers Care Extrusion Operator Name Role Phone Lorna Bal APRN Primary Care Provider [phone] [phone] Encounter Details Date Type Department Care Team (Latest Contact Info) Description 03/18/2019 1:45 PM EST - 03/18/2019 11:59 PM EST Hospital Encounter XRay at [address] [place] [address] [facility] [place] [address] Acquired dysplasia of hip, unspecified laterality Discharge [...] PM EST Office [place] [address] [facility] [place] [address] documented as of this encounter Procedures Procedure [...] below. ? Electronically signed by: Zander Sherwood [facility] ([phone]), at 03/18/2019 4:22 PM Narrative 03/18/2019 4:22 [...] number below. Electronically signed by: Zander Sherwood [facility]([phone]), at 03/18/2019 4:22 PM Josse Mckee MD IMG DX ORDERABLES documented in this encounter Visit Diagnoses Diagnosis Acquired dysplasia of hip, unspecified laterality documented in this encounter Care Teams Extrusion Operator Relationship Specialty Start Date End Date Lorna Bal APRN [address] [place] [address] PCP - General Family Medicine 05/27/18 documented as of this encounter
--- OUTSIDE RECORDS SUMMARY | 2023-12-29 14:07 | XMS_ITS | Encounter Summary ---
Author Organization [facility] Address [facility] Benjamin [facility] [place] [address] Care Team Providers Care Therapy Coordinator Name Role Phone Emelyn Easley MD Primary Care Provider Reason for Visit * Reason Comments Follow Up Surgery Bilateral Girdle sto ne procedure Encounter Details Date Type Department Care Team (Late st Contact Info) Description 03/06/2017 11:40 AM EST Office [place] [address] Josse Mckee MD [facility] [place] [address] Acquired dysplasia of hip, unspecified laterality; Traumatic [...] NAME: Tana Cavazos AGE: 21 y.o.. MR#: [id number] ? DATE OF VISIT: 03/06/2017 ? STAFF: [...] a severe scoliosis on 03/20/[address] Ramierz, with a residual curve. Her mother had [...] at that time, done with physiatry at [facility]. Dr. Mckee gave them his [...] PM EST Office [place] [address] Hollie Ambriz MD [facility] [place] [address] documented as of this encounter Visit Diagnoses Diagnosis Acquired dysplasia of hip, unspecified laterality Traumatic brain injury, without loss of consciousness, sequela documented in this encounter Care Teams Therapy Coordinator Relationship Specialty Start Date End Date Emelyn Easley MD [address] [place] [address] PCP - General Family Medicine 08/26/16 05/26/18 documented as of this encounter
--- OUTSIDE RECORDS SUMMARY | 2023-12-29 14:07 | XMS_ITS | Encounter Summary ---
Author Organization [facility] Address [facility] [place] [address] Care Team Providers Care Brass And Wind Instrument Repairer Name Role Phone Lorna Bal APRN Primary Care Provider [phone] [phone] Reason for Visit * Auth/Cert Specialty Diagnoses [...] Expiration Date Visits Re quested Visits Authorized [id number] 1 1 Encounter Details Date Type Department Care Team (Late st Contact Info) Description 06/14/2018 8:34 AM EST - 06/14/2018 12:20 PM EST Hospital Encounter Outpatient [place] [phone] Keith Cotton MD [facility] ORAL [place] [address] Discharge Disposition: Home Social History Tobacco Use [...] closest emergency room or call the hospital booster station operator at [phone] and ask for physician combination welder apprentice covering for your physician. Questions or problems after 5pm or on a weekend: Call the [facility] booster station operator at and ask for the physician combination welder apprentice covering for your doctor. * Patient Instructions* [...] may be helpful. Most swelling will occur [id number] hours following the procedure. Mouth Rinse: Vigorous [...] can be reached during office hours at [phone]. If you have questions atnight or on weekends, Dr. Cotton can be reached at [phone]. documented in this encounter Medications at Time [...] BOTH LEGS performed by BARRERA OLIVER at [facility] MAIN OR ? ? PRO I&D, POST SPINE, LUMB/SACR/LUMBOSAC N/A 05/20/2014 @I & D, OPEN, DEEP ABSCESS, LUMBAR, SACRAL, LUMBOSACRAL performed by Freddy Isbell MD at [facility] MAIN OR ? ? PRO I&D, POST SPINE, LUMB/SACR/LUMBOSAC N/A 05/26/2014 @I & D, OPEN, DEEP ABSCESS, LUMBAR, SACRAL, LUMBOSACRAL performed by Freddy Isbell MD at [facility] MAIN OR ??? PRO OSTEOTOMY FEMUR SHAFT/SUPRACONDY 08/15/2010 ??OSTEOTOMY, FEMUR SHAFT OR SUPRACONDYLAR W/O FIXATION performed by BARRERA OLIVER at [facility] MAIN OR ??? PRO RECONSTRUC HIP SOCKET, RESEC FEM HEAD 08/15/2010 ??ACETABULOPLASTY (GIRDLESTONE), RESECTION FEMORAL HEAD, BILATERAL performed by BARRERA OLIVER [facility] OR ??? PRO REMOVAL DEEP IMPLANT 08/15/2010 REMOVAL IMPLANT, DEEP, BRUNO performed by BARRERA OLIVER at [facility] MAIN OR ??? PRO REMOVE INFUSN DEVICE/PUMP N/A 05/11/2014 REMOVAL OF SPINE INFUSION PUMP performed by Jamaal Samuel MD at [facility] OR ??? PRO REMOVE SPINAL CANAL CATHETER N/A 05/11/2014 REMOVAL OF INTRATHECAL OR EPIDURAL CATHETER performed by Jamaal Samuel MD at [facility] OR ??? PRO REPR, DURAL/CSF LEAK, NOT REQ LAMINECTOMY N/A 05/20/2014 @REPAIR DURAL\CSF LEAK,NOT REQUIRING LAMINECTOMY performed by Freddy Isbell MD at [facility] OR Allergies Allergen Reactions ??? Fluoxetine Other (See Comments) HIVES, HEART RACES ??? Tegaderm [Transparent Dressings] Itching and Dermatitis Please use [id number] No current facility-administered medications on file prior [...] TOOTH (WRVU 1.09) No flowsheet data found. [place] PDMP QUERY DATE: 06/14/18 Risk Assessment Category: [...] for scanning to chart. No future appointments. Ketih Cotton DMD, MD cigarette machine operator documented in this encounter Miscellaneous Notes * Op Note - Keith Cotton MD - 06/14/2018 11:06 AM EST [facility] Operative Note Patient Name: Tana Cavazos : [id number] MR#: [id number] Case Date: 06/14/2018 Surgeon: Surgeon(s) and Role: [...] the standard fashion for oral and maxillofacial pathologist. The oral cavity was suctioned and an [...] tooth #32. Mucoperiosteum was reflected laterally andthe EdCaliber drill was used to remove bone overlying [...] PM EST Office [place] [address] Hollie Ambriz MD [facility] [place] [address] documented as of this encounter Procedures Procedure [...] Routine documented in this encounter Care Teams Brass And Wind Instrument Repairer Relationship Specialty Start Date End Date Lorna Bal APRN [address] [place] [address] PCP - General Family Medicine 05/27/18 documented as of this encounter
--- OUTSIDE RECORDS SUMMARY | 2023-12-29 14:07 | XMS_ITS | Encounter Summary ---
Author Organization [facility] [place] [address] Care Team Providers Care Laborer Vineyard Name Role Phone Lorna Bal APRN Primary Care Provider +1 -[phone] Encounter Details Date Type Department Care Team (Late st Contact Info) Description 06/17/2022 Ancillary Procedure [place] [address] Joe Harrison MD [facility] [place] [address] Social History Tobacco Use Types Packs/Day Years [...] PM EST Office [place] [address] Hollie Ambriz MD [facility] [place] [address] documented as of this encounter Procedures Procedure Name Priority Date/Time Associated Diagnosis Comments FILM LIBRARY STORAGE ONLY DX SPINE Routine 06/17/2022 12:00 AM EST documented in this encounter Results * Film Library- Storage Only DX Spine (06/17/2022 12:00 AM EST) Narrative [facility] - 06/19/2022 4:36 PM EST This exam is auto-finalizing. It's purpose is for storage only. Joe Harrison MD IMG FILM LIBRARY ORD ERABLES [place], [place] documented in this encounter Visit Diagnoses Not on filedocumented in this encounter Care Teams Laborer Vineyard Relationship Specialty Start Date End Date Lorna Bal APRN [address] [place] [address] PCP - General Family Medicine 05/27/18 documented as of this encounter
--- OUTSIDE RECORDS SUMMARY | 2023-12-29 14:07 | XMS_ITS | Encounter Summary ---
Author Organization [facility] Address [facility] [place] [address] Care Team Providers Care Colorman Name Role Phone Lorna Bal APRN Primary Care Provider +1 -[phone] Reason for Visit * Reason Comments Cerebral Palsy CP hip dysplasia Encounter Details Date Type Department Care Team (Late st Contact Info) Description 03/18/2019 2:00 PM EST Office [place] [phone] Josse Mckee MD [facility] [place] [address] Acquired dysplasia of hip, unspecified laterality Social [...] NAME: Tana Cavazos AGE: 23 y.o.. MR#: [id number] ? DATE OF VISIT: 03/18/2019 ? STAFF: [...] continued pain. She continues to wear a [place] TLSO brace for her residual curve. She [...] would be continued care with an adult finisher hot strip to try to utilize botox/phenol injections to manage her pain. He did recommend [facility] in the [place] area, as a good option for an adult finisher hot strip. She can follow up PRN with Dr. Mckee, and will be transitioning to an adult provider. documented in this encounter Plan of Treatment Upcoming Encounters Date Type Department Care Team (Late st Contact Info) Description 06/02/2024 12:30 PM EST Office [place] [address] Hollie Ambirz MD [facility] [place] [address] documented as of this encounter Results * [...] Electronically signed by: Zander Sherwood [facility] ([phone]), at 03/18/2019 4:22 PM Narrative 03/18/2019 4:22 [...] number below. Electronically signed by: Zander Sherwood [facility]([phone]), at 03/18/2019 4:22 PM Josse Mckee MD IMG DX ORDERABLES documented in this encounter Visit Diagnoses Diagnosis Acquired dysplasia of hip, unspecified laterality Acquired dysplasia of hip, unspecified laterality documented in this encounter Care Teams Colorman Relationship Specialty Start Date End Date Lorna Bal APRN [address] [place] [address] PCP - General Family Medicine 05/27/18 documented as of this encounter
--- OUTSIDE RECORDS SUMMARY | 2023-12-29 14:07 | XMS_ITS | Encounter Summary ---
Author Organization Counts Include [facility] Address [facility] [place] [address] Care Team Providers Care Rnp Name Role Phone Lorna Bal APRN Primary Care Provider +1 -[phone] Encounter Details Date Type Department Care Team (Late st Contact Info) Description 07/08/2022 Orders Only [place] [address] Jamaal Estrada MD [facility] [place] [address] Spinal abscess; Bacteremia; E coli infection; Soft tissue abscess; Muscle abscess Social History Tobacco Use Types Packs/Day Years Used Date Smoking Tobacco: Never Smokeless Tobacco: Never Comments:NO SMOKERS IN THE H OME Alcohol Use Standard Drinks/Week Comments No 0 (1 standard drink = 0.6 oz pur e alcohol) [facility] Inpatient Questions Answer Date Recorded Does Anyone [...] PM EST Office Visit [place] [address] Hollie Ambriz MD [facility] [place] [address] documented as of this encounter Visit Diagnoses [...] documented as of this encounter Care Teams Rnp Relationship Specialty Start Date End Date Lorna Bal, [place] [address] [place] [address] PCP - General Family Medicine 05/27/18 documented as of this encounter
--- OUTSIDE RECORDS SUMMARY | 2023-12-29 14:07 | XMS_ITS | Encounter Summary ---
[place] [address] Care Team Providers Care Child Therapist Name Role Phone Lorna Bal APRN Primary Care Provider +1 -[phone] Encounter Details Date Type Department Care Team [...] PM EST Office [place] [address] Hollie Ambriz MD [facility] [place] [address] documented as of this encounter Visit Diagnoses Not on filedocumented in this encounter Additional Health Concerns Infection Onset Date Last Indicated Resolved Time Parainfluenza Virus 06/28/2022 06/28/2022 07/10/19 23 8:09 PM EDT documented as of this encounter Care Teams Child Therapist Relationship Specialty Start Date End Date Lorna Bal APRN [address] [place] [address] PCP - General Family Medicine 05/27/18 documented as of this encounter
--- OUTSIDE RECORDS SUMMARY | 2023-12-29 14:07 | XMS_ITS | Encounter Summary ---
[place] [address] Care Team Providers Care Rigging Helper Name Role Phone Lorna Bal APRN Primary Care Provider +1 -[phone] Encounter Details Date Type Department Care Team (Late st Contact Info) Description 06/19/2022 Telephone [place] [phone] Gurdeep Simmons MD [facility] DR ORTHOPAED[place] [address] Social History Tobacco Use Types Packs/Day Years [...] a call from Kelly Landa APRN at [facility] regarding Tana Cavazos through the transfer [...] was brought to the ED today byher tank car repairer as there was some concern for having perceived pain her back (patient is non-verbal).Per report, examination by providers at [facility] do not demonstrate evidence of pain, [...] The patient was evaluated by orthopaedics at [facility] (Dr. Weiss) who did not recommend [...] were answered. Gurdeep Simmons MD Orthopaedic Surgery 0433 documented in this encounter Plan of Treatment Upcoming Encounters Date Type Department Care Team (Late st Contact Info) Description 06/02/2024 12:30 PM EST Office Visit [place] [address] Hollie Ambriz MD [facility] [place] [address] documented as of this encounter Visit Diagnoses Not on filedocumented in this encounter Care Teams Rigging Helper Relationship Specialty Start Date End Date Lorna Bal APRN [address] [place] [address] PCP - General Family Medicine 05/27/18 documented as of this encounter
--- OUTSIDE RECORDS SUMMARY | 2023-12-29 14:07 | XMS_ITS | Encounter Summary ---
Author Organization [facility] Address [facility] [place] [address] Care Team Providers Care Title Camera Operator Name Role Phone Lorna Bal APRN Primary Care Provider +1 -[phone] Reason for Visit * Auth/Cert Specialty Diagnoses [...] Expiration Date Visits Re quested Visits Authorized [id number] 1 1 Encounter Details Date Type Department Care Team (Late st Contact Info) Description 06/14/2018 9:12 AM EST Anesthesia Event [facility] [place] [address] Ty Amin MD [facility] [place] [address] Andrade Baldwin MD [facility] [place] [address] Anesthesia Record Procedure Summary Procedure Name Responsible [...] 06/14/18; 0917; other (see comments) (right saphenous); nydo-yxg-tswdiq catheter system; 22 gauge; Dr. Amin; 1; no longer indicated, removed per policy/procedure, catheter/device intact; 06/14/18; 1218 06/14/18 0917 by Laxmi Fowler, AUTOMOTIVE WHOLESALE PARTS ADVISOR 06/14/18 1218 by Jessica Silva, EUNICE ETT Mask Ventilation: Ea sy (1); ETT Type: Cuffed, Nasal, KRISH; ETT Size: 7 mm; Mac Blade: 3; Notes: Asleep, Pre-O2; Attempts: 1; Laryngoscopy Grade: 1; ETT Placement Verified By: Auscultation, Capnometry, Visual; Secured at Teeth: 21 cm; Inserted by: Dr. Amin; Removal Date: 06/14/18; Removal Time: 1106 06/14/18 0924 by Laxmi Fowler, AUTOMOTIVE [employer]ES[employer] ADVISOR 06/14/18 1106 by Laxmi Fowler, AUTOMOTIVE WHOLESALE PART[employer] ADVISOR Incision 06/14/18; 0937; gum; 12/23/21 (LDA cleanup [...] Amin MD - 06/14/2018 11:39 AM EST [facility] Department of Anesthesiology Post-procedure Note Patient: Tana Cavazos Procedure Summary Date: 06/14/18 Room / Location: [facility] [place] [address] [place] [address] Anesthesia Start: 911 Anesthesia Stop: 1117 Procedures: [...] All Anesthesia Providers: Anesthesiologist: Ty Amin MD [employer] ADVISOR: Laxmi Fowler CRNA Vitals Value Taken Time BP 128/58 06/14/2018 12:00 PM Temp 36.1 ??C (97 ??F) 06/14/2018 11:15 AM Pulse 95 06/14/2018 11:30 AM Resp 20 06/14/2018 12:00 PM SpO2 97 % 06/14/2018 12:00 PM Pain Level 1 06/14/2018 12:00 PM Patient Location: PACU/[facility] Level of Consciousness: Awake and Alert [...] BARRERA OLIVER at [facility] OR ? ? PRO I&D, POST SPINE, LUMB/SACR/LUMBOSAC N/A 05/20/2014 @I & D, OPEN, DEEP ABSCESS, LUMBAR, SACRAL, LUMBOSACRAL performed by Freddy Isbell MD at [facility] OR ? ? PRO I&D, POST SPINE, LUMB/SACR/LUMBOSAC N/A 05/26/2014 @I & D, OPEN, DEEP ABSCESS, LUMBAR, SACRAL, LUMBOSACRAL performed by Freddy Isbell MD at [facility] OR ??? PRO OSTEOTOMY FEMUR SHAFT/SUPRACONDY 08/15/2010 ??OSTEOTOMY, FEMUR SHAFT OR SUPRACONDYLAR W/O FIXATION performed by BARRERA OLIVER at [facility] OR ??? PRO RECONSTRUC HIP SOCKET, RESEC FEM HEAD 08/15/2010 ??ACETABULOPLASTY (GIRDLESTONE), RESECTION FEMORAL HEAD, BILATERAL performed by BARRERA OLIVER [facility] OR ??? PRO REMOVAL DEEP IMPLANT 08/15/2010 REMOVAL IMPLANT, DEEP, BRUNO performed by BARRERA OLIVER at [facility] OR ??? PRO REMOVE INFUSN DEVICE/PUMP N/A 05/11/2014 REMOVAL OF SPINE INFUSION PUMP performed by Jamaal Samuel MD at [facility] OR ??? PRO REMOVE SPINAL CANAL CATHETER N/A 05/11/2014 REMOVAL OF INTRATHECAL OR EPIDURAL CATHETER performed by Jamaal Samuel MD at [facility] MAIN OR ??? PRO REPR, DURAL/CSF LEAK, NOT REQ LAMINECTOMY N/A 05/20/2014 @REPAIR DURAL\CSF LEAK,NOT REQUIRING LAMINECTOMY performed by Freddy Isbell MD at [facility] MAIN OR Social History Tobacco Use ??? Smoking status: Never Smoker ??? Smokeless tobacco: Never Used ??? Tobacco comment: NO SMOKERS IN THE HOME Substance Use Topics ??? Alcohol use: No Social History Substance and Sexual Activity Drug Use No Allergies Allergen Reactions ??? Fluoxetine Other (See Comments) HIVES, HEART RACES ??? Tegaderm [Transparent Dressings] Itching and Dermatitis Please use [id number] Medications: MAR and/or home medications have been [...] PM EST Office [place] [address] Hollie Ambriz MD [facility] [place] [address] documented as of this encounter Visit Diagnoses [...] EST documented in this encounter Care Teams Title Camera Operator Relationship Specialty Start Date End Date Lorna Bal APRN [address] [place] [address] PCP - General Family Medicine 05/27/18 documented as of this encounter
--- OUTSIDE RECORDS SUMMARY | 2023-12-29 14:07 | XMS_ITS | Encounter Summary ---
Author Organization [facility] Address [facility] [place] [address] Care Team Providers Care Final Canoe Inspector Name Role Phone Lorna Bal APRN Primary Care Provider +1 [phone] Encounter Details Date Type Department Care Team (Late st Contact Info) Description 06/30/2022 Orders [place] [address] Sergey Keane MD [facility] [place] [address] Spinal abscess Social History Tobacco Use Types [...] EST Office [place] [address] Hollie Ambriz MD [facility] [place] [address] documented as of this encounter Visit Diagnoses [...] documented as of this encounter Care Teams Final Canoe Inspector Relationship Specialty Start Date End Date Lorna Bal APRN [address] [place] [address] PCP - General Family Medicine 05/27/18 documented as of this encounter
--- OUTSIDE RECORDS SUMMARY | 2023-12-29 14:07 | XMS_ITS | Encounter Summary ---
Author Organization [facility] Address [facility] [place] [address] Care Team Providers Care Cross Cut Sawyer Name Role Phone Lorna Bal APRN Primary Care Provider +1 -[phone] Reason for Visit * Auth/Cert Specialty Diagnoses [...] Expiration Date Visits Re quested Visits Authorized [id number] 1 1 Encounter Details Date Type Department Care Team (Late st Contact Info) Description 06/14/2018 9:45 AM EST - 06/14/2018 11:30 AM EST Surgery [place] [address] Keith Cotton MD [facility] [place] [address] SURGICAL EXTRACTIONS, REMOVAL OF IMPACTED TOOTH, COMPLETELY [...] closest emergency room or call the hospital invoice machine operator at [phone] and ask for physician residential concierge covering for your physician. Questions or problems after 5pm or on a weekend: Call the [facility] invoice machine operator at and ask for the physician residential concierge covering for your doctor. * Patient Instructions* [...] may be helpful. Most swelling will occur [id number] hours following the procedure. Mouth Rinse: Vigorous [...] can be reached during office hours at [phone]. If you have questions atnight or on weekends, Dr. Cotton can be reached at [phone]. documented in this encounter Medications at Time [...] BARRERA OLIVER at [facility] OR ? ? PRO I&D, POST SPINE, LUMB/SACR/LUMBOSAC N/A 05/20/2014 @I & D, OPEN, DEEP ABSCESS, LUMBAR, SACRAL, LUMBOSACRAL performed by Freddy Isbell MD at [facility] OR ? ? PRO I&D, POST SPINE, LUMB/SACR/LUMBOSAC N/A 05/26/2014 @I & D, OPEN, DEEP ABSCESS, LUMBAR, SACRAL, LUMBOSACRAL performed by Freddy Isbell MD at [facility] MA[facility] OR ??? PRO OSTEOTOMY FEMUR SHAFT/SUPRACONDY 08/15/2010 ??OSTEOTOMY, FEMUR SHAFT OR SUPRACONDYLAR W/O FIXATION performed by BARRERA OLIVER at [facility] OR ??? PRO RECONSTRUC HIP SOCKET, RESEC FEM HEAD 08/15/2010 ??ACETABULOPLASTY (GIRDLESTONE), RESECTION FEMORAL HEAD, BILATERAL performed by BARRERA OLIVER [facility] OR ??? PRO REMOVAL DEEP IMPLANT 08/15/2010 REMOVAL IMPLANT, DEEP, BRUNO performed by BARRERA OLIVER at [facility] OR ??? PRO REMOVE INFUSN DEVICE/PUMP N/A 05/11/2014 REMOVAL OF SPINE INFUSION PUMP performed by Jamaal Samuel MD at [facility] MA[facility] OR ??? PRO REMOVE SPINAL CANAL CATHETER N/A 05/11/2014 REMOVAL OF INTRATHECAL OR EPIDURAL CATHETER performed by Jamaal Samuel MD at [facility] OR ??? PRO REPR, DURAL/CSF LEAK, NOT REQ LAMINECTOMY N/A 05/20/2014 @REPAIR DURAL\CSF LEAK,NOT REQUIRING LAMINECTOMY performed by Freddy Isbell MD at [facility] OR Allergies Allergen Reactions ??? Fluoxetine Other (See Comments) HIVES, HEART RACES ??? Tegaderm [Transparent Dressings] Itching and Dermatitis Please use [id number] No current facility-administered medications on file prior [...] TOOTH (WRVU 1.09) No flowsheet data found. [place] PDMP QUERY DATE: 06/14/18 Risk Assessment Category: [...] No future appointments. Keith Cotton DMD, MD supplier quality specialist documented in this encounter Miscellaneous Notes * Op Note - Keith Cotton MD - 06/14/2018 11:06 AM EST [facility] Operative Note Patient Name: Tana Cavazos : [id number] MR#: [id number] Case Date: 06/14/2018 Surgeon: Surgeon(s) and Role: [...] in the standard fashion for behavioral health case manager. The oral cavity was suctioned and an [...] tooth #32. Mucoperiosteum was reflected laterally andthe [place] WaVE drill was used to remove bone overlying [...] PM EST Office Visit Infectious Disease at [facility] [place] [address] Hollie Ambriz MD [facility] [place] [address] documented as of this encounter Procedures Procedure [...] Routine documented in this encounter Care Teams Cross Cut Sawyer Relationship Specialty Start Date End Date Lorna Bal APRN [address] [place] [address] PCP - General Family Medicine 05/27/18 documented as of this encounter
--- OUTSIDE RECORDS SUMMARY | 2023-12-29 14:07 | XMS_ITS | Encounter Summary ---
Author Organization [facility] [place] [address] Care Team Providers Care Dietetic Assistant Name Role Phone Lorna Bal APRN Primary Care Provider [phone] Reason for Referral * Home Health Care (Routine) - Closed Specialty Diagnoses / Procedures Referred By Contac t Referred To Contact Diagn[place] [address] [facility] & [address] [address] Referral ID Status Reason Start Date Expiration Date V isits Requested Visits Authorized [id number] Closed Consult, Test & Treat 07/09/2022 01/05/2023 999 999 Reason for Visit * Reason Comments Surgical Post Op * Auth/Cert (Routine) Specialty Diagnoses / Procedures Referred By Contac t Referred To Contact Diagnoses Spinal abscess Procedures EMERGENCY GABI Eddi Vázquez [place] [address] [facility] Referral ID Status Reason Start Date Expiration Date Visits Re quested Visits Authorized [id number] 1 1 Encounter Details Date Type Department Care Team (Latest Contact Info) Description 06/24/2022 2:05 PM EST - 07/09/2022 10:29 AM EDT Hospital Encounter Medical Specialites Unit Level 1 [place] [id number] Eddi Váz[place] [address] [place] [address] Estev[place] [address] Ian Duarte MD Swenson, Rebecca A, [place] [address] Spinal abscess; Tachycardia; Bacteremia Discharge Disposition: Home [...] Tana Shelton Patient Age: 27 y.o. Language: Occitan Race: White Ethnicity: Not nor Admit date: [...] contact your inpatient physician through the [facility] Salesforce Developer . Issues afterhours and on weekends [...] however on 06/[address] [facility] by her head of drama for possibly increased back pain and received [...] 19.75 Height: 157.5 cm (5' 2) (06/24/22 1317) Weight: 49 kg (108 lb) (06/24/22 1317) Functional and Cognitive Status: Non verbal but awake and alert Important Studies and Lab Data: Labs: Last 3 wbc, hgb, hct plt Recent Labs 07/09/22 0355 07/08/22 0548 07/07/22 0341 WBC 6.8 5.3 3.8* HGB 8.8* 8.4* 7.6* HCT 28.1* 27.2* 25.5* PLATELET 386* 336 281 Last 3 Lytes Recent Labs 07/09/22 0355 07/08/22 0548 07/07/22 0341 NA 139 140 141 K 4.2 3.8 3.7 CL 104 105 110* CO2 BUN 8 6* 5* CREATININE 0.26* 0.24* 0.23* Last 3 LFTs Recent Labs 07/07/22 0341 07/06/22 0621 07/05/22 0531 AST 20 25 39* ALT 42* 57* 74* ALKPHOS 177* 199* 209* BILITOT <0.2* 0.3 0.4 BILIDIR <0.1 0.1 0.1 Last Ca, Mg, Phos Recent Labs 07/09/22 0355 CALCIUM 9.1 Last 3 Coags No results [...] questions please contact the health foster care worker that requested your imaging first. All Drainage [...] than 25 cc. Fluoroscopy time: Please see [facility] IR technologist record for procedural dose/time. [...] The tract was dilated, and an 8 [place] drain was advanced over the wire into [...] aspiration demonstrated shiraz pus, and an 8 [place] drain was placed using ultrasound guidance as [...] maximal sterile barrier technique was used throughout. Building Custodian fluoroscopic images were obtained. Contrast was injected [...] questions please contact the health foster care worker that requested your imaging first. Lumbar Spine [...] questions please contact the health foster care worker that requested your imaging first. All Drainage Procedures (Exam End: 07/04/2022 4:14 PM) Narrative Preoperative Diagnosis: re accumulated Lumbar collection by CT, Fevers Postoperative Diagnosis: Same Procedure Performed: Ultrasound and fluoroscopically guided drain placement. Operators: Mich Martino MD, Attending Estimated Blood Loss: Negligible. Fluoroscopy dose: Please see [facility] IR technologist record for procedural dose/time. [...] dilated over the wire and a 8.5 [place] drain was advanced over the wire into [...] questions please contact the health foster care worker that requested your imaging first. Site Check In Recovery Room (Exam End: 07/08/2022 10:29 AM) Narrative This exam is auto-finalizing. No interpretation was done. Pending Studies and Lab Data: None Discharge Conditions/Prognosis: Stable Discharge to: Home Updated Allergies/ADRs: Allergies Allergen Reactions ??? Fluoxetine Other (See Comments) HIVES, HEART RACES ??? Tegaderm [Transparent Dressings] Itching and Dermatitis Please use [id number] ??? Penicillins Immunizations Given this Hospitalization: Immunization History Administered Date(s) Administered ??? Influenza Vaccine (Novel) [id number], Injectable 02/25/2009 ??? Influenza Vaccine w/Preservative, Split [...] back. The number for Infectious Disease is [phone] if you have questions or do not [...] PCP Office Your Inpatient Doctor(s) at [facility]: Dr. Perez - [facility] Medicine Dr. Hills and Dr. Jefferson - Infectious Disease. General Instructions [facility] Vascular and Interventional Radiology Discharge [...] is during regular office hours, please call [phone]. If it is after regular office hours, or on weekends or holidays, please call [phone] and ask to speak to the Dye Maker director executive communications for Interventional Radiology. You have received [...] occurs, please contact your M. D. Revised 1/15/16 Future Appointments and Orders Future Appointments and Orders Future Appointments Provider Department Dept Phone 07/31/2022 1:00 PM Lilli Joy APRN Infectious Disease at [facility] Arrive at: Home [phone] Please do not come in for this visit. Your provider will call you at the number you provided. 08/13/2022 11:30 AM Sergey Keane MD Infectious Disease at [facility] Arrive at: Test Boring Crew Chief Area [phone] Future Orders Complete By Expires IR Drain Check/Change/Remove [[id number] Custom] 07/20/2022 08/06/2022 Process Instructions: Scheduling Instructions: [...] Tana Shelton for admission to Home Health. [address] [place] [address] Date of : 1995 Inpatient DOCUMENTATION FOR VNA SERVICES (INCLUDING THOSE PATIENTS WITH MEDICARE COVERAGE REQUIRING HOME VNA SERVICES AND/OR HOSPICE SERVICES) PATIENT'S LOCATION: Tana Shelton [address] [facility] [address] Cell: Telephone Information: Real Estate Appraiser's Name: Mother/Guardian Anderson [phone] In discussion with the attending physician, it is certified that this patient is under their care and that they, or a Nurse Practitioner,Clinical Nurse specialist or Physician Baby Formula Worker who is working directly with them, had [...] Jefferson, Dr Samuel HOME HEALTH CARE AGENCY: [facility]. [address] [place] [address] Start of care: Anticipated start of care 24-48 hours after discharge Please note that any additional orders needs or changes will need to be obtained from this patient's PCP: Lorna Bal APRN [address] [place] [address] All A agencies which cover the area of patient's residence have been reviewed, either verbally fatuomata writing, and patient/family have chosen the home health care agency noted ' Questions: Disciplines Requested: Nursing Discharge References/Attachments None documented in this encounter Discharge Instructions * Discharge Instructions* Hollie Perez MD - 06/25/2022 5:20 AM EST [facility] Vascular and Interventional Radiology Discharge [...] is during regular office hours, please call [phone]. If it is after regular office hours, or on weekends or holidays, please call [phone] and ask to speak to the Dye Maker director executive communications for Interventional Radiology. You have received [...] back. The number for Infectious Disease is [phone] if you have questions or do not [...] PCP Office Your Inpatient Doctor(s) at [facility]: Dr. Perez - [facility] Medicine Dr. Hills and Dr. Jefferson [...] Perez MD - 07/09/2022 9:59 AM EDT [facility] Medicine - Attending Day of Discharge [...] spent >30 minutes (Day of Discharge Code 85358) involved in the final examination of the [...] then cefepime vanc for 3 days at [facility] and discharged on cefpodoxime, referred to [...] of care, communication with family Full code PREPARER MAKING DEPARTMENT, nutrition recommendations, diet regular Anticipated Disposition, PT/OT recommendations Home tomorrow Team Pager ( Coverage 17/11) [phone] PCP Lorna Bal APRN Attestation IPI Certification I certify that I am a D-H credentialed attending provider with admitting privileges and that the patient meets or has met medical necessity to require an inpatient IPI level of care meeting a minimumof two midnights or is on the [facility] inpatient only procedure list (status C) due [...] CREATININE 0.24* 0.23* 0.26* Recent Labs 07/07/22 0341 07/06/22 0621 07/05/22 [...] No growth Recent Labs 06/25/22 0855 07/01/22 20207/03/22 2245 07/03/22 2305 07/06/22 0621 07/07/22 0341 BLOODCX No growth at 5 days. No growth at 5 days. No growth at 5 days. No growth at 4 days. Escherichia coli detected by PCR Isolate saved. If future testing is required, contact the Microbiology Presser All Around. * No growth at 1 day. No [...] questions please contact the health foster care worker that requested your imaging first. Chest One [...] questions please contact the health foster care worker that requested your imaging first. Lumbar Spine [...] questions please contact the health foster care worker that requested your imaging first. Abdomen & [...] questions please contact the health foster care worker that requested your imaging first. * Chrissie [...] of care, communication with family Full code PREPARER MAKING DEPARTMENT, nutrition recommendations, diet regular Anticipated Disposition, PT/OT recommendations Home in next 1-2 days Team Pager ( Coverage 17/11) [phone] PCP Lorna Bal APRN Attestation IPI Certification I certify that I am a D-H credentialed attending provider with admitting privileges and that the patient meets or has met medical necessity to require an inpatient IPI level of care meeting a minimumof two midnights or is on the [facility] inpatient only procedure list (status C) due [...] future testing is required, contact the Microbiology Press[facility] Around. * No growth at 1 day. ECG: [...] questions please contact the health foster care worker that requested your imaging first. Chest One [...] questions please contact the health foster care worker that requested your imaging first. Lumbar Spine [...] questions please contact the health foster care worker that requested your imaging first. Abdomen & [...] questions please contact the health foster care worker that requested your imaging first. * Sergey Keane MD - 07/07/2022 4:02 PM EDT Images from the original note were not included. DEPARTMENT OF INFECTIOUS DISEASE & INTERNATIONAL HEALTH INFECTIOUS DISEASE PROGRESS NOTE Reason for follow up: E coli bacteremia, Spinal collections, gluteal abscess Subjective:Case discussed during rounds with ID team and the attending Dr. Samuel Patient is seen and examined at bedside. miller rod mill at bedside, refers she is lethargic with [...] are noted ?? Labs: CBC: Recent Labs 07/07/2234007/06/22 1840 07/05/22 0531 07/04/22 0607 WBC 3.8* -- 3.4* 8.3 HGB 7.6* 8.5* 7.7* 8.3* PLATELET 281 -- 240 244 Chemistry: Recent Labs 07/07/2234007/06/22 0621 07/05/22 0531 NA 141 138 142 K 3.7 3.6 3.8 CL 110* 104 108* CO2 23 Not Perf 25 BUN 5* 4* 6* CREATININE 0.23* 0.26* 0.29* GLUCOSE 90 80 85 Recent Labs 07/07/2234007/06/22 0621 07/05/22 0531 07/02/22 0615 07/01/22 1814 [...] Sergey Doan MD Infectious Disease Fellow Pager [phone] 07/07/22 (Attending addendum to follow) Associated attestation [...] of care, communication with family Full code PREPARER MAKING DEPARTMENT, nutrition recommendations, diet regular Anticipated Disposition, PT/OT recommendations Home Team Pager ( Coverage 17/11) [phone] PCP Lorna Bal APRN Attestation IPI Certification [...] 0855 07/01/22 2021 07/03/22 2245 07/03/22 2305 BLOODCX No growth at 5 days. No growth at 5 days. No growth at 4 days. No growth at 2 days. Escherichia coli detected by PCR Isolate saved. If future testing is required, contact the Microbiology Press[facility] All Around. * ECG: Recent Labs 07/04/22 0016 DIAGLINE [...] questions please contact the health foster care worker that requested your imaging first. Chest One [...] questions please contact the health foster care worker that requested your imaging first. Lumbar Spine [...] questions please contact the health foster care worker that requested your imaging first. Abdomen & [...] questions please contact the health foster care worker that requested your imaging first. * Willis Calero, DO - 07/06/2022 9:06 AM EDT INTERVENTIONAL [...] follow peripherally. - IR follow up ordered, planner/scheduler notified. Willis Calero DO, MBA Interventional Radiology [...] and ADLs]:?Total ?? Surveillance [continuous indirect monitoring]:?? [facility] near nurses' [...] is still not taking PO intake, per critical care clinical nurse specialist have concerns for strep. No BM on [...] interval not displayed. LFT's: Recent Labs 07/05/22 05 BILITOT 0.4 BILIDIR 0.1 ALBUMIN 3.1* ALKPHOS [...] of care, communication with family Full code PREPARER MAKING DEPARTMENT, nutrition recommendations, diet regular Anticipated Disposition, PT/OT recommendations Home Team Pager ( Coverage 17/11) [phone] PCP Lorna Bal APRN Attestation IPI Certification I certify that I am a D-H credentialed attending provider with admitting privileges and that the patient meets or has met medical necessity to require an inpatient IPI level of care meeting a minimumof two midnights or is on the [facility] inpatient only procedure list (status C) due [...] questions please contact the health foster care worker that requested your imaging first. Chest One [...] questions please contact the health foster care worker that requested your imaging first. Lumbar Spine [...] questions please contact the health foster care worker that requested your imaging first. * Paige Gonzalez RN - 07/05/2022 4:45 AM EST OUTCOME SUMMARY: Pt alert but nonverbal, MARYA orientation, VSS, no pain,??no shortness of breath, and no chest pain noted. O2@RA. IV antibiotic and continuous fluids given per MAR. No BM on this shift Pt remained [...] and ADLs]:?Total ?? Surveillance [continuous indirect monitoring]:?? [facility] Room near nurses' [...] of : 1995 AGE: 27 y.o. Address: [address] [place] [address] Phone: [phone] (home) Mobile: Telephone Information: Referring Provider: Lorna [...] [Transparent Dressings] Itching and Dermatitis Please use [id number] ??? Penicillins Pertinent PMH: Patient Active Problem [...] Sergey Doan MD Infectious Disease Fellow Pager [phone] 07/04/22 (Attending addendum to follow) Associated attestation [...] spiking fevers now. -Discussed with infectious disease work and family life consultant. Patient will get a repeat aspiration [...] of care, communication with family Full code PREPARER MAKING DEPARTMENT, nutrition recommendations, diet regular Anticipated Disposition, PT/OT recommendations Home Team Pager ( Coverage 17/11) [phone] PCP Lorna Bal APRN Attestation IPI Certification I certify that I am a D-H credentialed attending provider with admitting privileges and that the patient meets or has met medical necessity to require an inpatient IPI level of care meeting a minimumof two midnights or is on the [facility] inpatient only procedure list (status C) due [...] questions please contact the health foster care worker that requested your imaging first. Chest One [...] questions please contact the health foster care worker that requested your imaging first. Lumbar Spine [...] questions please contact the health foster care worker that requested your imaging first. * Paige [...] and ADLs]: Total Surveillance [continuous indirect monitoring]: Masimo Bed alarm Room near nurses' station Rounding Patient-specific fall prevention interventions for sensory deficits provided, if applicable: [X] No * Lilli Hughes RPH - 07/04/2022 12:03 AM EST Clinical Pharmacist Note - VancFD Tana Shelton [id number] 1995 Tana Shelton is a 27 y.o. [...] any questions you may have. Alternately,during off-hours (9p-) you may call [phone] to contact a pharmacist. Lilli Hughes RPH [...] Hands on Surveillance [continuous indirect monitoring]: Masimo, purposeful rouding Patient-specific fall prevention interventions for [...] of care, communication with family Full code PREPARER MAKING DEPARTMENT, nutrition recommendations, diet regular Anticipated Disposition, PT/OT recommendations Home Team Pager (MD Coverage 17/11) [phone] PCP Lorna Bal APRN Attestation IPI Certification I certify that I am a D-H credentialed attending provider with admitting privileges and that the patient meets or has met medical necessity to require an inpatient IPI level of care meeting a minimumof two midnights or is on the [facility] inpatient only procedure list (status C) due [...] change was found Confirmed by Lyndon Lafleur ([id number]) on 07/02/2022 5:10:53 PM QTCCALC 443 VASCULAR: [...] questions please contact the health foster care worker that requested your imaging first. Chest One [...] questions please contact the health foster care worker that requested your imaging first. * Nury [...] of care, communication with family Full code PREPARER MAKING DEPARTMENT, nutrition recommendations, diet regular Anticipated Disposition, PT/OT recommendations Home Team Pager ( Coverage 17/11) [phone] PCP Lorna Bal APRN Attestation IPI Certification I certify that I am a D-H credentialed attending provider with admitting privileges and that the patient meets or has met medical necessity to require an inpatient IPI level of care meeting a minimumof two midnights or is on the [facility] inpatient only procedure list (status C) due [...] drain removal site. Clean. LABS: Recent Labs 07/02/2215 07/01/22 0550 06/30/22 0429 WBC 3.3* 5.8 6.4 HGB 9.6* 9.3* 9.4* HCT 30.7* 29.6* 30.4* PLATELET 336 352 349 Recent Labs 07/02/2215 07/01/22 0550 06/30/22 0429 NA 134* 138 142 K 4.0 4.1 3.7 CL 100 103 105 CO2 24 24 25 BUN 5* 10 11 CREATININE 0.24* 0.25* 0.22* No results for input(s): AST, ALT, ALKPHOS, BILITOT, BILIDIR in the last 168 hours. Recent Labs 07/02/2261407/01/22 0550 06/30/22 0429 CALCIUM 8.7 9.0 8.9 [...] questions please contact the health foster care worker that requested your imaging first. * Karrie Smallwood - 07/02/2022 12:21 PM EST Nutrition Services Note - Low Nutrition Acuity Tana Shelton is a 27 y.o. female Reason for intervention: hospital day 9 Nutrition Plan: Continue current diet. Encourage good PO intake. Multivitamin with minerals noted. Monitor weight. Patient screened for hospital length of stay. Residential Plumber communicated with RN by secure chat and primary critical care clinical nurse specialist by phone. Per primary caregiver, patient has [...] weeks ago, where patient weighed 108 lbs. Residential Plumber recommends an updated weight on patient to [...] unless consulted in the interim. ALEJANDRO Osei [phone] * Emeka Zavala MD - 07/02/2022 7:47 [...] 1 tablet ??? lactated Ringers 50 mL/hr (07/01/222214) OBJECTIVE: Temp: [36.4 ??C (97.5 ??F)-38.4 ??C [...] of care, communication with family Full code PREPARER MAKING DEPARTMENT, nutrition recommendations, diet regular Anticipated Disposition, PT/OT recommendations Home Team Pager ( Coverage 17/11) [phone] PCP Lorna Bal APRN Attestation IPI Certification [...] drainage noted. LABS: Recent Labs 07/01/22 0550 06/30/2242806/29/22 05 WBC 5.8 6.4 5.6 HGB 9.3* 9.4* [...] Lateral leads Confirmed by MD Shabazz Danette ([id number]) on 06/29/2022 9:49:48 PM QTCCALC 458 VASCULAR: [...] questions please contact the health foster care worker that requested your imaging first. * Tegan Snyder RN - 07/01/2022 11:44 AM EST ANGIO NURSING DATABASE Name: Tana Shelton Date of : 1995 AGE: 27 y.o. Address: [address] [place] [address] Phone: [phone] (home) Mobile: Telephone Information: Referring Provider: Lorna [...] [Transparent Dressings] Itching and Dermatitis Please use [id number] ??? Penicillins Pertinent PMH: Patient Active Problem [...] Patient Name: Tana Shelton : 1995 MR#: [id number] Received contact from primary team regarding drain [...] PLATELET 349 345 371* Chemistry: Recent Labs 06/30/2242806/29/22 0558 06/28/22 0538 06/27/22 0506/26/22 0538 NA 142 134* 137 138 141 K 3.7 4.1 4.0 3.9 4.2 CL 105 102 102 102 103 CO2 25 21* 25 25 26 BUN 11 11 11 12 12 CREATININE 0.22* 0.25* 0.27* 0.32* 0.28* GLUCOSE -- -- 95 97 97 Recent Labs 06/30/2242806/29/22 0558 06/28/22 0538 CALCIUM 8.9 9.0 9.1 [...] Sergey Doan MD Infectious Disease Fellow Pager [phone] 06/30/22 (Attending addendum to follow) Associated attestation [...] of care, communication with family Full code PREPARER MAKING DEPARTMENT, nutrition recommendations, diet regular Anticipated Disposition, PT/OT recommendations Home Team Pager ( Coverage 17/11) [phone] PCP Lorna Bal APRN Attestation IPI Certification I certify that I am a D-H credentialed attending provider with admitting privileges and that the patient meets or has met medical necessity to require an inpatient IPI level of care meeting a minimumof two midnights or is on the [facility] inpatient only procedure list (status C) due [...] place.minimal pinkish drainage noted. LABS: Recent Labs 06/30/2242806/29/22 0558 06/28/22 0538 WBC 6.4 5.6 5.6 HGB 9.4* 9.8* 9.9* HCT 30.4* 31.7* 31.6* PLATELET 349 345 371* Recent Labs 06/30/22428 06/29/22 0558 06/28/22 0538 NA 142 134* 137 K 3.7 4.1 4.0 CL 105 102 102 CO2 25 21* 25 BUN 11 11 11 CREATININE 0.22* 0.25* 0.27* No results for input(s): AST, ALT, ALKPHOS, BILITOT, BILIDIR in the last 168 hours. Recent Labs 06/30/22 0429 06/29/22 0558 06/28/22 [...] Lateral leads Confirmed by MD Mele, Luba ([id number]) on 06/29/2022 9:49:48 PM QTCCALC 458 VASCULAR: No results for input(s): VBTEXTRPT in the last 720 hours. IMAGING: Results for orders placed or performed during the hospital encounter of 02/28/23 CT Lumbar Spine w Contrast (Exam End: [...] questions please contact the health foster care worker that requested your imaging first. * Estevan [...] of care, communication with family Full code PREPARER MAKING DEPARTMENT, nutrition recommendations, diet regular Anticipated Disposition, PT/OT recommendations Home Team Pager ( Coverage 17/11) [phone] PCP Lorna Bal APRN Attestation IPI Certification I certify that I am a D-H credentialed attending provider with admitting privileges and that the patient meets or has met medical necessity to require an inpatient IPI level of care meeting a minimumof two midnights or is on the [facility] inpatient only procedure list (status C) due [...] SKIN: moist, (-) rash LABS: Recent Labs 06/29/2255706/28/2253706/27/22 05 WBC 5.6 5.6 5.5 HGB 9.8* 9.9* 9.2* HCT 31.7* 31.6* 30.0* PLATELET 345 371* 389* Recent Labs 06/29/2255706/28/22 0538 06/27/22 05 NA 134* 137 138 K 4.1 4.0 3.9 CL 102 102 102 CO2 21* 25 25 BUN 11 11 12 CREATININE 0.25* 0.27* 0.32* No results for input(s): AST, ALT, ALKPHOS, BILITOT, BILIDIR in the last 168 hours. Recent Labs 06/29/2255706/28/2253706/27/22557 CALCIUM 9.0 9.1 9.2 No results for [...] questions please contact the health foster care worker that requested your imaging first. * Edvin [...] of care, communication with family Full code PREPARER MAKING DEPARTMENT, nutrition recommendations, diet regular Anticipated Disposition, PT/OT recommendations Home Team Pager ( Coverage 17/11) [phone] PCP Lorna Bal APRN Attestation IPI Certification I certify that I am a D-H credentialed attending provider with admitting privileges and that the patient meets or has met medical necessity to require an inpatient IPI level of care meeting a minimumof two midnights or is on the [facility] inpatient only procedure list (status C) due [...] 33.5* PLATELET 371* 389* 467* Recent Labs 06/28/22 0538 06/27/22 0558 06/26/22 0538 NA 137 138 141 K 4.0 3.9 4.2 CL 102 102 103 CO2 25 25 26 BUN 11 12 12 CREATININE 0.27* 0.32* 0.28* No results for input(s): AST, ALT, ALKPHOS, BILITOT, BILIDIR in the last 168 hours. Recent Labs 06/28/22 0538 06/27/22 0558 06/26/22 0538 CALCIUM 9.1 9.2 9.3 [...] questions please contact the health foster care worker that requested your imaging first. * Anurag Call DO - 06/27/2022 6:20 PM EST HOSPITAL MEDICINE ATTENDING DAILY PROGRESS NOTE Patient Tana Shelton 1995 [id number] Physician Anurag Call DO Pager [phone] Encounter Date June 27, 2022 Admit Date 06/24/2022 Hospital Day 3 PCP Lorna Bal, ECONOMIC RESEARCH ANALYST [phone] ASSESSMENT/PLAN: Active Hospital Problems Diagnosis ??? Spinal [...] Recent Labs 06/27/22 0558 06/26/22 0538 06/25/22 0220 NA 138 141 140 K 3.9 4.2 4.1 CL 102 103 103 CO2 25 26 27 BUN 12 12 9 CREATININE 0.32* 0.28* 0.30* CALCIUM 9.2 9.3 9.4 Recent Labs 06/27/22 0558 06/26/22 0538 06/25/22 0220 WBC 5.5 5.3 7.2 HGB 9.2* [...] is on the [facility] inpatient only procedure list (status C) due to: Possible spinal abscess with involvement of previous placed hardware Anurga Call DO 2700 Hospitalist 06/27/2022 6:28 PM [...] Zhanna Garrett - 06/26/2022 7:15 PM EST Computer Support Specialist Instructor Encounter Note Patient Name: Tana Shelton : [id number] MR#: [id number] Admit Date: 06/24/2022 2:05 PM Hospital Day [...] Tana's mom would be coming back from [place] until the hospital knows what next stepsare. Fannie stated that she was so glad she got Tana to [facility], as the smaller hospitals [...] Call DO - 06/26/2022 4:51 PM EST [facility] MEDICINE ATTENDING DAILY PROGRESS NOTE Patient Tana Shelton 1995 [id number] Physician Anurag Call DO Pager [phone] Encounter Date June 26, 2022 Admit Date 06/24/2022 Hospital Day 2 PCP Lorna Bal, ECONOMIC RESEARCH ANALYST [phone] ASSESSMENT/PLAN: Active Hospital Problems Diagnosis ??? Spinal [...] erythema LABS/IMAGING: Recent Labs 06/26/22 0538 06/25/22 02206/24/22 1623 NA 141 140 143 K 4.2 4.1 3.9 CL 103 103 104 CO2 26 27 27 BUN 12 9 9 CREATININE 0.28* 0.30* 0.26* CALCIUM 9.3 9.4 10.0 Recent Labs 06/26/22 0538 06/25/22 02206/24/22 1623 WBC 5.3 7.2 6.8 HGB 10.1* [...] is on the [facility] inpatient only procedure list (status C) due to: Possible spinal abscess with involvement of previous placed hardware Anurag Call DO 2700 Hospitalist 06/26/2022 4:51 PM * Jimbo Willams [...] on Surveillance [continuous indirect monitoring]: Bed alarm, richardimo, caregiver @ bedside * Anurag Call DO - 06/25/2022 5:37 PM EST HOSPITAL MEDICINE ATTENDING DAILY PROGRESS NOTE Patient Tana Shelton 1995 [id number] Physician Anurag Call DO Pager [phone] Encounter Date June 25, 2022 Admit Date 06/24/2022 Hospital Day 1 PCP Lorna Bal, ECONOMIC RESEARCH ANALYST [phone] ASSESSMENT/PLAN: Active Hospital Problems Diagnosis ??? Spinal [...] data in the 24 hours ending 06/25/22 1447 GEN: awake, alert, NAD HEENT: PERRLA, EOMI, [...] questions please contact the health foster care worker that requested your imaging first. ULTANTS: IP [...] is on the [facility] inpatient only procedure list (status C) due to: Possible spinal abscess with involvement of previous placed hardware Anurag Call DO 2700 Hospitalist 06/25/2022 5:37 PM * Gadiel Morris RN - 06/25/2022 4:19 PM EST ANGIO NURSING DATABASE Name: Tana Shelton Date of : 1995 AGE: 27 y.o. Address: [address] [place] [address] (home) Mobile: Telephone Information: Referring Provider: Lorna [...] [Transparent Dressings] Itching and Dermatitis Please use [id number] ??? Penicillins Pertinent PMH: Patient Active Problem [...] HEAD, BILATERAL performed by BARRERA OLIVER [facility] MAIN OR ??? PRO REMOVAL DEEP [...] of procedure) 07/04/2022 Chrissie Lee PA-C * [place], DEMI Torres - 07/01/2022 9:39 AM EST [...] BARRERA OLIVER [facility] OR ??? PRO REMOVAL DEEP [...] MD at [facility] OR ??? PRO REMOVE SPINAL CANAL CATHETER N/A 05/11/2014 REMOVAL OF INTRATHECAL OR EPIDURAL CATHETER performed by Jamaal Samuel MD at [facility] OR ??? PRO REPR, DURAL/CSF LEAK, NOT REQ LAMINECTOMY N/A 05/20/2014 @REPAIR DURAL\CSF LEAK,NOT REQUIRING LAMINECTOMY performed by Freddy Isbell MD at [facility] OR Social History and Habits: [...] Tegaderms. S. Gómez Ellison MD PGY-2 Pager #[phone] Department of Radiology [facility] 06/25/2022 Source Note - Hank Nunez [...] HEAD, BILATERAL performed by BARRERA OLIVER [facility] MAIN OR ??? PRO REMOVAL DEEP [...] [facility] MA[facility] OR Social history and habits: Social History [...] BARRERA OLIVER [facility] OR ??? PRO REMOVAL DEEP IMPLANT 08/15/2010 REMOVAL IMPLANT, DEEP, BRUNO performed by BARRERA OLIVER at [facility] OR ??? PRO REMOVAL ERUPTED [...] MD at [facility] OR ??? PRO REMOVE SPINAL CANAL CATHETER N/A 05/11/2014 REMOVAL OF INTRATHECAL OR EPIDURAL CATHETER performed by Jamaal Samuel MD at [facility] OR ??? PRO REPR, DURAL/CSF LEAK, NOT REQ LAMINECTOMY N/A 05/20/2014 @REPAIR DURAL\CSF LEAK,NOT REQUIRING LAMINECTOMY performed by Freddy Isbell MD at [facility] OR Social history and habits: Social [...] ID: 27 y.o. Female presents to [facility] with redness and drainage [...] however on 06/[address] 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 PRO REMOVAL DEEP [...] [Transparent Dressings] Itching and Dermatitis Please use [id number] ??? Penicillins Family History: Family History Problem [...] Administered Date(s) Administered ??? Influenza Vaccine (Novel) [id number], Injectable 02/25/2009 ??? Influenza Vaccine w/Preservative, Split [...] improvement in thecellulitis. Tana was brought [facility] on 06/17/2022 by her head of drama as there was some concern for having perceived pain her back (patient is non-verbal). Patient was hospitalized for IV antibiotic treatment of a presumed cellulitis. examination by providers at [facility] did not not preceded evidence of [...] The patient was evaluated by orthopaedics at [facility] (Dr. Weiss) who did not recommend attempting to aspirate the area. Inflammatory labs on 06/19/20 were: WBC: 7, CRP: 7.5. She is afebrile, and there have been no fevers since the time she began oral antibiotics for the cellulitis. Prior to discharge Dr. Simmons from orthopedics at [facility] once consulted. Per his note on 06/19/2022 [...] be progressing again since her discharge from [facility] on 06/19/2020. Patient hasbeen afebrile with [...] and did the previous consult note from [facility]. Spoke with orthopedics who are recommending [...] 2046: Orthopedics were able to reach their air quality instrument specialist and will evaluate patient. Plan based [...] questions please contact the health foster care worker that requested your imaging first. Assessment and Plan: 27 y.o. female with history of spastic quadriplegia CP, scoliosis, prior bilateral Girdlestone's who was recently discharged home on 06/19/2021 from [facility] where she received IV antibiotics for [...] Contact information for follow-up Home Health & Hospice, [place] [address] [place] [address] Transportation: family or friend will provide *Mother [...] agreement with plan. Phyllis Abraham RN, BSN Derrickman Helper - Medicine Office of Care Management Office: Pager: [phone] * Plan of Care - Jigna Neal [...] if applicable:?[X]N/A * Plan of Care - ArapahoDiandra - 07/08/2022 3:11 AM EDT OUTCOME EVALUATION [...] yesterday morning Please call with any questions #[phone] Jean-Pierre Godinez RN * Consult Note - Vi Lawrence [facility] - 07/05/2022 8:27 AM EST ?? The [...] Alternately, during off-hours you comfort mason call [phone] to contact a pharmacist. * Care Management [...] file: Yes Decision Maker Name: Anderson Thorpe mother Decision Maker Contact Information: Functional status [...] Agency/Support Group Needs: Homecare agency Agency Referrals: [facility] following for DC needs and possible acceptance. Transportation: family or friend will provide Barriers to discharge: Discharge planning Plan going forward: Repeat CT lumbar spine today due to recurrent low grade fevers Care Management will continue to follow and assist with discharge planning and coordination of care as indicated. Anticipated Date of Discharge: 07/07/2022 Phyllis Abraham RN, BSN Derrickman Helper - Medicine Office of Care Management Office: Pager: [phone] * Care Management - Amy Trejo RN [...] file: Yes Decision Maker Name: Anderson Thorpe mother Decision Maker Contact Information: Functional status [...] Agency Referrals: I have met with the direct marketing representative (anderson) to: ?? discuss discharge planning needs. ?? provide the [facility], Office of Care Management letter from the Neurology Physician Assistant pertaining to rehabreferrals. ?? provide a letter describing our affiliations within the [facility] and educate about their right to choose where referrals are sent. ?? provide a list of Home Health Agencies / Durable Medical Equipment vendors which serve their preferred geographic area. ?? provided patient with CMS Star Quality Rating handout. They have requested referrals to: [facility]. [address] [place] [id number] Note routed to a Mine Production Engineer who will communicate referrals to facilities and [...] Date of Discharge: 07/03/2022 Amy Trejo RN, Pager-[phone] * Plan of Care - Katherine Ryan RN - 07/02/2022 4:51 PM EST OUTCOME EVALUATION NOTE: OUTCOME SUMMARY: Alert on RA, assessment as documented. Does not appear to be in pain. LR 500cc bolus fo SBP 94 increased to 110. HR remain tachy to low 100s. Cont LR discontinued. [facility] for UA sample. CXR obtained. High temp [...] hands on/total care Surveillance [continuous indirect monitoring]: moraima, tele, hourly rounding Patient-specific fall prevention interventions [...] ADLs]: Total care Surveillance [continuous indirect monitoring]: Moraima purposeful rounding * Plan of Care - [...] improvement. On 06/17 she was seen at [facility] due to increased back pain and [...] with you. Please call with questions, pager [phone]. Discussed with attending, Dr. Brown Tee MD [...] possible that her prior antibiotics at [facility] have made cultures less sensitive. * Plan of Care - Piter Magaña RN - 06/28/2022 5:15 AM EST OUTCOME EVALUATION NOTE: OUTCOME SUMMARY: Patient has been sleeping intermittently throughout the night. VSS. Mom remains atthe bedside and is attentive to patient. Continues on tele. HR noted to sustain in the 120's-130's.Tele showed ST. All other VSS. Patient asymptomatic. MD ([id number]) made aware and ordered 500 ml bolus [...] the home: roomate(s), other (see comments) (caregiver, Fanine). Current Living Arrangements: home/apartment/condo. Accessibility Concerns:ramp to enter the home.. Resource / Environmental Concerns: Resource/Environmental Concerns: none Current DME: hospital bed, lift device [place] [facility] [place] [address] Social & Family Supports: All names listed below confirmed with patient as current and correct Extended Emergency Contact Information Primary Emergency Contact: Anderson Thorpe [facility] Mobile Relation: Mother Secondary Emergency Contact: Jose MartinCurt [facility] Mobile Relation: Step parent Current Care [...] Insurance: N/A Prescription Coverage: Yes Preferred Pharmacy: [facility] [address] [place] [phone] [address] [facility] - [place], [place] - [address] [facility] [address] [facility] [address] [facility] [address] - [place], [place] - [address] [facility] [address] [facility] [address] [place] Status: Patient is a : No Primary Care Provider confirmed: Lorna Bal, ECONOMIC RESEARCH ANALYST [phone] Patient/Caregiver Goals of Treatment: Caregiver anticipates return [...] of care planning. Alicja Franklin RN, BSN exterminator Office of Care Management Pager: [phone] * Consult Note - Piter Palmer MD - 06/24/2022 11:04 PM EST Images from the original note were not included. Orthopaedic Spine Consult Note Consult Received: 6PM Patient Seen: 7PM Attending: Dr. Harrison Tana Shelton is a 27 y.o. female [...] in years. Patient was originally seen at [facility] where an ultrasound performed demonstrating a small fluid collection in the subcutaneous tissue. Patient was admitted for 2 days at [facility] for IV antibiotics and then ultimately transitioned to p.o. antibiotics on discharge. Patient presents to the [facility] ED today for persistent [...] BARRERA OLIVER [facility] OR ??? PRO REMOVAL DEEP [...] MD at [facility] OR ??? PRO REMOVE SPINAL CANAL CATHETER N/A 05/11/2014 REMOVAL OF INTRATHECAL OR EPIDURAL CATHETER performed by Jamaal Samuel MD at [facility] OR ??? PRO REPR, DURAL/CSF LEAK, NOT REQ LAMINECTOMY N/A 05/20/2014 @REPAIR DURAL\CSF LEAK,NOT REQUIRING LAMINECTOMY performed by Freddy Isbell MD at [facility] OR Home Medications: (Not in a hospital admission) Allergies: Allergies Allergen Reactions ??? Fluoxetine Other (See Comments) HIVES, HEART RACES ??? Tegaderm [Transparent Dressings] Itching and Dermatitis Please use [id number] ??? Penicillins Current Medications: No current facility-administered [...] possible poor wound healing. Joe Harrison MD MD [facility] - Department of Orthopaedic Surgery Certified Retinal Angiographer - Department of Orthopedic Surgery / Academics and Research Business Leader Professor - [facility] 06/25/2022 * Consult Note - Kelvin Munson, [facility] - 06/24/2022 9:44 PM EST TelePharmacy Home Medication List Update for Medication Reconciliation 06/24/22 9:45 PM Tana Shelton 1995 Allergies Allergen Reactions ??? Fluoxetine Other (See Comments) HIVES, HEART RACES ??? Tegaderm [Transparent Dressings] Itching and Dermatitis Please use [id number] ??? Penicillins ??? 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 Quality of Interview/accuracy of medication list: [...] PM EST Office [place] [address] Hollie Ambriz MD [facility] [address] Scheduled Referrals Name Type Priority Associated Diagnoses [...] Routine 2:20 AM EST BASIC METABOLIC PANEL Routine [...] 3:55 AM EDT) Neutrophil % 51.7 % [facility] Neutrophil Absolute 3.50 1.70 - 6.10 x10(3)/mc L [facility] Lymph % 39.1 % [facility] Lymphocytes Abs 2.6 0.9 - 3.2 x10(3)/mc L [facility] Monocyte % 5.9 % [facility] Monocyte Abs 0.4 0.3 - 0.9 x10(3)/mc L [facility] Eos % 1.5 % [facility] Eosinophils Abs 0.1 0.0 - 0.4 x10(3)/mc L [facility] Basophil % 0.6 % [facility] Baso Absolute 0.0 0.0 - 0.1 x10(3)/mc L [facility] Immature Gran % 1.20 % [facility] Comment: Immature granulocytes(IG's)percentage and absolute count will include metamyelocytes, myelocytes, and promyelocytes. Blood smears from CBCs yielding IG's will be scanned manually for concordance. If this scan disagrees with the automated IG or if promyelocytes are noted, a manual differential will be performed. Immature Gran Absolute 0.08(H) 0.00 - 0.04 x10(3)/mc L [facility] Blood 07/09/2022 3:55 AM EDT 07/09/2022 4:02 AM EDT Narrative Resulting Agency Comment Spec In Lab Hollie Perez MD HEMATOLOGY ORDERABL ES [facility] [place] [address] * (ABNORMAL) Hemogram (07/09/2022 3:55 AM EDT) White Blood Cell 6.8 4.0 - 9.5 x10(3)/mc L [facility] Red Blood Cell 3.54(L) 4.00 - 5.21 x10(6)/mc L [facility] Hemoglobin 8.8(L) 11.7 - 15.5 g/dL [facility] Hematocrit 28.1(L) 35.7 - 45.8 % [facility] Mean Cell Volume 79.4(L) 82.6 - 94.4 fL [facility] Mean Cell Hemoglobin 24.9(L) 27.1 - 32.0 pg [facility] Mean Cell Hemoglobin Concentration 31.3(L) 31.7 - 35.0 g/dL [facility] Platelet 386(H) 145 - 357 x10(3)/mc L [facility] RDW Standard Deviation 57.2(H) 37.0 - 46.0 fL [facility] RDW coefficient of variation 20.9(H) 11.5 - 14.1 % [facility] Mean Platelet Volume 9.4 7.6 - 12.9 fL [facility] NRBC% auto 0.0 % [facility] NRBC Absolute 0.000 0.000 - 0.000 x10(3)/mc L [facility] Blood 07/09/2022 3:55 AM EDT 07/09/2022 4:02 AM EDT Narrative Resulting Agency Comment Spec In Lab Hollie Perez MD HEMATOLOGY ORDERABL ES Performing Organization Address [facility]/ZIP Co de Phone Number [facility] [place] [address] * (ABNORMAL) Basic Metabolic Panel (non-fasting) (07/09/2022 3:55 AM EDT) Glucose 101 65 - 199 mg/dL [facility] Comment:Diabetes: >=200 mg/d L plus symptoms Blood Urea Nitrogen 8 8 - 18 mg/dL [facility] Creatinine 0.26(L) 0.70 - 1.20 mg/dL [facility] Sodium 139 135 - 145 mmol/L [facility] Potassium 4.2 3.5 - 5.0 mmol/L [facility] Comment: Please note: ??Patients with WBC >100,000 may have falsely elevated Potassium levels. ??For accurate Potassium quantification in these patients send serum separator tube (gold top) for subsequent determinations. ??Contact the Clinical Chemistry Laboratory if there are any questions. Chloride 104 98 - 107 mmol/L [facility] Carbon Dioxide 23 22 - 31 mmol/L [facility] Anion Gap 12 5 - 15 mmol/L [facility] Calcium 9.1 8.5 - 10.5 mg/dL [facility] Est Glomerular Filtration Rate 152 >=60 mL/min/1. 73 m?? [facility] Comment: This patient's estimated [...] Lab Hollie Perez MD CHEMISTRY ORDERABLE S [facility] [place] [address] * IR Site Check In Recovery Room (07/08/2022 10:29 AM EDT) Narrative Dicom, Auditing User - 07/08/2022 10:29 AM EDT This exam is auto-finalizing. No interpretation was done. Hollie Perez MD IMG IR ORDERABLES * (ABNORMAL) Differential, Automated (07/08/2022 5:48 AM EDT) Neutrophil % 49.5 % [facility] Neutrophil Absolute 2.62 1.70 - 6.10 x10(3)/mc L [facility] Lymph % 41.6 % [facility] Lymphocytes Abs 2.2 0.9 - 3.2 x10(3)/mc L [facility] Monocyte % 5.5 % [facility] Monocyte Abs 0.3 0.3 - 0.9 x10(3)/mc L [facility] Eos % 2.1 % [facility] Eosinophils Abs 0.1 0.0 - 0.4 x10(3)/mc L [facility] Basophil % 0.4 % [facility] Baso Absolute 0.0 0.0 - 0.1 x10(3)/mc L [facility] Immature Gran % 0.90 % [facility] Comment: Immature granulocytes(IG's)percentage and absolute count will include metamyelocytes, myelocytes, and promyelocytes. Blood smears from CBCs yielding IG's will be scanned manually for concordance. If this scan disagrees with the automated IG or if promyelocytes are noted, a manual differential will be performed. Immature Gran Absolute 0.05(H) 0.00 - 0.04 x10(3)/mc L [facility] Blood 07/08/2022 5:48 AM EDT 07/08/2022 5:53 AM EDT Narrative Resulting Agency Comment Spec In Lab Hollie Perez MD HEMATOLOGY ORDERABL ES [facility] [place] [address] * (ABNORMAL) Hemogram (07/08/2022 5:48 AM EDT) White Blood Cell 5.3 4.0 - 9.5 x10(3)/mc L [facility] Red Blood Cell 3.42(L) 4.00 - 5.21 x10(6)/mc L [facility] Hemoglobin 8.4(L) 11.7 - 15.5 g/dL [facility] Hematocrit 27.2(L) 35.7 - 45.8 % [facility] Mean Cell Volume 79.5(L) 82.6 - 94.4 fL [facility] Mean Cell Hemoglobin 24.6(L) 27.1 - 32.0 pg [facility] Mean Cell Hemoglobin Concentration 30.9(L) 31.7 - 35.0 g/dL [facility] Platelet 336 145 - 357 x10(3)/mc L [facility] RDW Standard Deviation 55.7(H) 37.0 - 46.0 fL [facility] RDW coefficient of variation 19.9(H) 11.5 - 14.1 % [facility] Mean Platelet Volume 9.2 7.6 - 12.9 fL [facility] NRBC% auto 0.4 % [facility] NRBC Absolute 0.020(H) 0.000 - 0.000 x10(3)/ L [facility] Blood 07/08/2022 5:48 AM EDT 07/08/2022 5:53 AM EDT Narrative Resulting Agency Comment Spec In Lab Hollie Perez MD HEMATOLOGY ORDERABL ES [facility] [place] [address] * (ABNORMAL) Basic Metabolic Panel (non-fasting) (07/08/2022 5:48 AM EDT) Glucose 92 65 - 199 mg/dL [facility] Comment:Diabetes: >=200 mg/d L plus symptoms Blood Urea Nitrogen 6(L) 8 - 18 mg/dL [facility] Creatinine 0.24(L) 0.70 - 1.20 mg/dL [facility] Sodium 140 135 - 145 mmol/L [facility] Potassium 3.8 3.5 - 5.0 mmol/L [facility] Comment: Please note: ??Patients with WBC >100,000 may have falsely elevated Potassium levels. ??For accurate Potassium quantification in these patients send serum separator tube (gold top) for subsequent determinations. ??Contact the Clinical Chemistry Laboratory if there are any questions. Chloride 105 98 - 107 mmol/L [facility] Carbon Dioxide 23 22 - 31 mmol/L [facility] Anion Gap 12 5 - 15 mmol/L [facility] Calcium 8.7 8.5 - 10.5 mg/dL [facility] Est Glomerular Filtration Rate 155 >=60 mL/min/1. 73 m?? [facility] Comment: This patient's estimated [...] Lab Hollie Perez MD CHEMISTRY ORDERABLE S [facility] [place] [address] * Cortisol (07/08/2022 5:48 AM EDT) Cortisol 17.6 mcg/dL [facility] Comment: Reference ranges: ??AM (6-10am): ??4.8-19.5 mcg/dL ??PM (4-8pm) : ??2.5-11.9 mcg/dL Blood 07/08/2022 5:48 AM EDT 07/08/2022 5:53 AM EDT Narrative Resulting Agency Comment Spec In Lab Hollie Perez MD CHEMISTRY ORDERABLE S [facility] [place] [address] * (ABNORMAL) CRP, acute inflammation (07/08/2022 5:48 AM EDT) C-Reactive Protein 16.8(H) <=4.9 mg/L [facility] Blood 07/08/2022 5:48 AM EDT 07/08/2022 5:53 AM EDT Narrative Resulting Agency Comment Spec In Lab Hollie Perez MD CHEMISTRY ORDERABLE S Performing Organization Address [facility] Co de Phone Number [facility] [place] [address] * (ABNORMAL) Ferritin (07/08/2022 5:48 AM EDT) Ferritin 204(H) 15 - 150 ng/mL [facility] Comment: Pediatric reference ranges not verified at [facility] [place], interpret with caution. Reference ranges for females greater than 50 years of age approach values for men, i.e., 30-400 ng/mL. Blood 07/08/2022 5:48 AM EDT 07/08/2022 5:53 AM EDT Narrative Resulting Agency Comment Spec In Lab Hollie Perez MD CHEMISTRY ORDERABLE S Performing Organization Address City/[facility]/ZIP Co de Phone Number [facility] [place] [address] * (ABNORMAL) Iron and TIBC (07/08/2022 5:48 AM EDT) Iron 52 30 - 150 mcg/dL [facility] TIBC 217(L) 250 - 450 mcg/dL [facility] Iron Saturation 24 20 - 50 % [facility] Blood 07/08/2022 5:48 AM EDT 07/08/2022 5:53 AM EDT Narrative Resulting Agency Comment Spec In Lab Hollie Perez MD CHEMISTRY ORDERABLE S Performing Organization Address [facility] Co de Phone Number [facility] [place] [address] * EKG 12 Lead (07/07/2022 11:44 AM EDT) Ventricular rate 78 BPM MUSE SYSTEM Atrial Rate 78 BPM MUSE SYSTEM P-R Interval 132 ms MUSE SYSTEM QRS Duration 84 ms MUSE SYSTEM Q-T Interval 410 ms MUSE SYSTEM QTC Calculated (Bezet) 467 ms MUSE SYSTEM Calculated P [place] 23 degrees MUSE SYSTEM Calculated R [place] 0 degrees MUSE SYSTEM Calculated T [place] 24 degrees MUSE SYSTEM INTERPRETATION Normal sinus [...] Perez MD ECG ORDERABLES Performing Organization Address [facility] de Phone Number MUSE SYSTEM * (ABNORMAL) Blood Gas Venous ([facility]) (07/07/2022 7:10 AM EDT) pH, Venous 7.42 7.32 - 7.42 [facility] PCO2, Venous 39(L) 41 - 51 mmHg [facility] PO2, Venous 58(H) 25 - 40 mmHg [facility] Bicarbonate, Venous 24.5 mmol/L [facility] Base Excess, Venous 0.0 mmol/L [facility] Hgb Blood Gas 8.8(L) 11.7 - 15.5 g/dL [facility] Oxyhemoglobin, Venous 89.6 % [facility] Carboxyhemoglob in, Venous 0.3 % [facility] Comment: Nonsmokers: 0.5-1.5% COHB Smokers: Variable, but usually less than 10% Toxic: 20-30% COHB Lethal: Greater than 60% COHB Methemoglobin, Venous 0.1 <=1.5 % [facility] Na Whole Blood 138 135 - 145 mmol/L [facility] K Whole Blood 3.6 3.5 - 5.0 mmol/L [facility] Comment: Please note: Patients with WBC >100,000 may have falsely elevated Potassium levels. Contact the Clinical Chemistry Laboratory if there are any questions. ICa Whole Blood 1.16 1.15 - 1.33 mmol/L [facility] Comment: Note: ??Total bilirubin higher than 20 mg/dL may lead to falsely low ionized calcium. CL Whole Blood 109(H) 98 - 107 mmol/L [facility] Gluc Whole Bld 89 65 - 199 mg/dL [facility] Comment:Diabetes: >=200 mg/d L plus symptoms Lactate WB 1.3 0.5 - 2.2 mmol/L [facility] Blood Gas Source Venous [facility] Blood Venous Draw / Unknown 07/07/2022 7:10 AM EDT 07/07/2022 7:18 AM EDT Narrative Resulting Agency Comment Spec In Lab Mayank Kang MD CHEMISTRY ORDERABLES Performing Organization Address City/[facility] Co de Phone Number [facility] [place] [address] * Scan, Peripheral Blood (07/07/2022 3:41 AM EDT) Plat estimate Normal [facility] RBC Morphology Abnormal [facility] Macrocyte 1-5 /HPF [facility] Microcyte 6-10 /HPF [facility] Hypochromia Slight [facility] Ovalocytes 1-5 /HPF [facility] Plat, Giant Less than 1 /HPF [facility] Blood 07/07/2022 3:41 AM EDT 07/07/2022 3:46 AM EDT Narrative Resulting Agency Comment Spec In Lab Hollie Perez MD HEMATOLOGY ORDERABL ES Performing Organization Address City/[facility]/ZIP [place] [address] * (ABNORMAL) Differential, Automated (07/07/2022 3:41 AM EDT) Pathologist [facility] Neutrophil % 40.9 % [facility] Neutrophil Absolute 1.54(L) 1.70 - 6.10 x10(3)/ L [facility] Lymph % 49.7 % [facility] Lymphocytes Abs 1.9 0.9 - 3.2 x10(3)/ L [facility] Monocyte % 6.3 % [facility] Monocyte Abs 0.2(L) 0.3 - 0.9 x10(3)/ L [facility] Eos % 2.1 % [facility] Eosinophils Abs 0.1 0.0 - 0.4 x10(3)/[facility] Basophil % 0.5 % [facility] Baso Absolute 0.0 0.0 - 0.1 x10(3)/[facility] Immature Gran % 0.50 % [facility] Comment: Immature granulocytes(IG's)percentage and absolute count will include metamyelocytes, myelocytes, and promyelocytes. Blood smears from CBCs yielding IG's will be scanned manually for concordance. If this scan disagrees with the automated IG or if promyelocytes are noted, a manual differential will be performed. Immature Gran Absolute 0.02 0.00 - 0.04 x10(3)/ L [facility] Blood 07/07/2022 3:41 AM EDT 07/07/2022 3:46 AM EDT Narrative Resulting Agency Comment Spec In Lab Hollie Perez MD HEMATOLOGY [place] [address] * (ABNORMAL) Hemogram (07/07/2022 3:41 AM EDT) White Blood Cell 3.8(L) 4.0 - 9.5 x10(3)/ L [facility] Red Blood Cell 3.13(L) 4.00 - 5.21 x10(6)/ L [facility] Hemoglobin 7.6(L) 11.7 - 15.5 g/dL [facility] Hematocrit 25.5(L) 35.7 - 45.8 % [facility] Mean Cell Volume 81.5(L) 82.6 - 94.4 fL [facility] Mean Cell Hemoglobin 24.3(L) 27.1 - 32.0 pg [facility] Mean Cell Hemoglobin Concentration 29.8(L) 31.7 - 35.0 g/dL [facility] Platelet 281 145 - 357 x10(3)/mc L [facility] RDW Standard Deviation 56.9(H) 37.0 - 46.0 fL [facility] RDW coefficient of variation 19.5(H) 11.5 - 14.1 % [facility] Mean Platelet Volume 9.5 7.6 - 12.9 fL [facility] NRBC% auto 0.0 % [facility] NRBC Absolute 0.000 0.000 - 0.000 x10(3)/ L [facility] Blood 07/07/2022 3:41 AM EDT 07/07/2022 3:46 AM EDT Narrative Resulting Agency Comment Spec In Lab Hollie Perez MD HEMATOLOGY ORDERABL ES [facility] [place] [address] * (ABNORMAL) Basic Metabolic Panel (non-fasting) (07/07/2022 3:41 AM EDT) Glucose 90 65 - 199 mg/dL [facility] Comment:Diabetes: >=200 mg/d L plus symptoms Blood Urea Nitrogen 5(L) 8 - 18 mg/dL [facility] Creatinine 0.23(L) 0.70 - 1.20 mg/dL [facility] Sodium 141 135 - 145 mmol/L [facility] Potassium 3.7 3.5 - 5.0 mmol/L [facility] Comment: Please note: ??Patients with WBC >100,000 may have falsely elevated Potassium levels. ??For accurate Potassium quantification in these patients send serum separator tube (gold top) for subsequent determinations. ??Contact the Clinical Chemistry Laboratory if there are any questions. Chloride 110(H) 98 - 107 mmol/L [facility] Carbon Dioxide 23 22 - 31 mmol/L [facility] Anion Gap 8 5 - 15 mmol/L [facility] Calcium 8.3(L) 8.5 - 10.5 mg/dL [facility] Est Glomerular Filtration Rate 157 >=60 mL/min/1. 73 m?? [facility] Comment: This patient's estimated [...] MD CHEMISTRY ORDERABLE S Performing Organization Address [facility] Co de Phone Number [facility] [place] [address] * Blood culture (07/07/2022 3:41 AM EDT) Blood Culture No growth at 5 days. [facility] Blood 07/07/2022 3:41 AM EDT 07/07/2022 4:59 AM EDT Comment:L hand Narrative Resulting Agency Comment Spec In Lab Hollie Perez MD MICROBIOLOGY - BLOO D ORDERABLES Performing Organization Address [facility]/ZIP [place] [address] * (ABNORMAL) Hepatic Function Panel (07/07/2022 3:41 AM EDT) Protein, Total 6.0(L) 6.1 - 8.0 g/dL [facility] Albumin 2.9(L) 3.2 - 5.2 g/dL [facility] Aspartate Aminotransferase 20 0 - 30 unit/L [facility] Alanine Aminotransferase 42(H) 0 - 30 unit/L [facility] Alkaline Phosphatase 177(H) 35 - 105 unit/L [facility] Bilirubin, Total <0.2(L) 0.2 - 1.3 mg/dL [facility] Bilirubin, Direct <0.1 0.0 - 0.3 mg/dL [facility] Blood 07/07/2022 3:41 AM EDT 07/07/2022 3:46 AM EDT Narrative Resulting Agency Comment Spec In Lab Hlolie Perez MD CHEMISTRY ORDERABLE S Performing Organization Address [facility] Co de Phone Number [facility] [place] [address] * (ABNORMAL) Hemoglobin and Hematocrit, blood (07/06/2022 6:40 PM EDT) Hemoglobin 8.5(L) 11.7 - 15.5 g/dL [facility] Hematocrit 26.4(L) 35.7 - 45.8 % [facility] Blood 07/06/2022 6:40 PM EDT 07/06/2022 6:46 PM EDT Narrative Resulting Agency Comment Spec In Lab Hollie Perez MD HEMATOLOGY ORDERABL ES Performing Organization Address City/[facility]/ZIP Co de Phone Number [facility] [place] [address] * Lactate, whole blood, send to lab ([facility] [place]) (07/06/2022 6:40 PM EDT) Lactate WB 0.6 0.5 - 2.2 mmol/L [facility] Blood 07/06/2022 6:40 PM EDT 07/06/2022 6:46 PM EDT Narrative Resulting Agency Comment Spec In Lab Hollie Perez MD CHEMISTRY ORDERABLE S Performing Organization Address City/[facility]/ZIP Co de Phone Number [facility] [place] [address] * POCT Glucose (07/06/2022 5:36 PM EDT) Glucose, POC 86 65 - 199 mg/dL [facility] Comment: Supplemental ranges: <140 mg/dL before meals <180 mg/dL all other times of the day Blood 07/06/2022 5:36 PM EDT 07/06/2022 5:36 PM EDT Hollie Perez MD POINT OF CARE TEST ORDERABLES Performing Organization Address [facility] Co de Phone Number [facility] [place] [address] * (ABNORMAL) CRP, acute inflammation (07/06/2022 6:21 AM EDT) C-Reactive Protein 54.2(H) <=4.9 mg/L [facility] Blood Venous Draw / Unknown 07/06/2022 6:21 AM EDT 07/06/2022 7:28 AM EDT Narrative Resulting Agency Comment Spec In Lab Hollie Perez MD CHEMISTRY ORDERABLE S Performing Organization Address [facility] Co de Phone Number [facility] [place] [address] * (ABNORMAL) Basic Metabolic Panel (non-fasting) (07/06/2022 6:21 AM EDT) Glucose 80 65 - 199 mg/dL [facility] Comment:Diabetes: >=200 mg/d L plus symptoms Blood Urea Nitrogen 4(L) 8 - 18 mg/dL [facility] Creatinine 0.26(L) 0.70 - 1.20 mg/dL [facility] Sodium 138 135 - 145 mmol/L [facility] Potassium 3.6 3.5 - 5.0 mmol/L [facility] Comment: Please note: ??Patients with WBC >100,000 may have falsely elevated Potassium levels. ??For accurate Potassium quantification in these patients send serum separator tube (gold top) for subsequent determinations. ??Contact the Clinical Chemistry Laboratory if there are any questions. Chloride 104 98 - 107 mmol/L [facility] Carbon Dioxide Not Perf [facility] Comment:Add-on request. Jonah le too old to perform test. Anion Gap Unable to Calculate 5 - 15 mmol/L [facility] Calcium 8.6 8.5 - 10.5 mg/dL [facility] Est Glomerular Filtration Rate 152 >=60 mL/min/1 .73 m?? [facility] Comment: This patient's estimated [...] Lab Hollie Perez MD CHEMISTRY ORDERABLE S [facility] [place] [address] * Lavender Tube HOLD (07/06/2022 6:21 AM EDT) Lavender Hold Sample in lab. [facility] Blood Venous Draw / Unknown 07/06/2022 6:21 AM EDT 07/06/2022 6:28 AM EDT Hollie Perez MD HEMATOLOGY ORDERABL ES [facility] [place] [address] * (ABNORMAL) Hepatic Function Panel (07/06/2022 6:21 AM EDT) Pathologist [place] Protein, Total 6.7 6.1 - 8.0 g/dL [facility] Albumin 3.2 3.2 - 5.2 g/dL [facility] Aspartate Aminotransferase 25 0 - 30 unit/L [facility] Alanine Aminotransferase 57(H) 0 - 30 unit/L [facility] Alkaline Phosphatase 199(H) 35 - 105 unit/L [facility] Bilirubin, Total 0.3 0.2 - 1.3 mg/dL [facility] Bilirubin, Direct 0.1 0.0 - 0.3 mg/dL [facility] Blood 07/06/2022 6:21 AM EDT 07/06/2022 6:27 AM EDT Narrative Resulting Agency Comment Spec In Lab Hollie Perez MD CHEMISTRY ORDERABLE S Performing Organization Address [facility] Co de Phone Number [facility] [place] [address] * Blood culture (07/06/2022 6:21 AM EDT) Pathologist [facility] Blood Culture No growth at 5 days. [facility] Blood 07/06/2022 6:21 AM EDT 07/06/2022 11:05 AM EDT Comment:R Hand Narrative Resulting Agency Comment Spec In Lab Hollie Perez MD MICROBIOLOGY - BLOO D ORDERABLES Performing Organization Address [facility] Co de Phone Number [facility] [place] [address] * CT Abdomen & Pelvis w Contrast [...] questions please contact the health foster care worker that requested your imaging first. [...] administration of contrast. Administered 66.0 ml of [id number] mg/ml. Oral contrast administered. COMPARISON: CT lumbar [...] have questions please contactthe health foster care worker that requested your imaging first. Hollie Perez MD IMG CT ORDERABLES * Scan, Peripheral Blood (07/05/2022 5:31 AM EST) Pathologist [facility] Plat estimate Normal [facility] RBC Morphology Abnormal [facility] Hypochromia Slight [facility] Blood 07/05/2022 5:31 AM EST 07/05/2022 5:43 AM EST Narrative Resulting Agency Comment Spec In Lab Ian Duarte MD HEMATOLOGY CLEO SALDANA [facility] [place] [address] * Bilirubin, Direct (07/05/2022 5:31 AM EST) Pathologist [facility] Bilirubin, Direct 0.1 0.0 - 0.3 mg/dL [facility] Blood 07/05/2022 5:31 AM EST 07/05/2022 5:43 AM EST Narrative Resulting Agency Comment Spec In Lab Hollie Perez MD CHEMISTRY ORDERABLE S [facility] [place] [address] * (ABNORMAL) Differential, Automated (07/05/2022 5:31 AM EST) Neutrophil % 41.2 % [facility] Neutrophil Absolute 1.39(L) 1.70 - 6.10 x10(3)/mc L [facility] Lymph % 45.4 % [facility] Lymphocytes Abs 1.5 0.9 - 3.2 x10(3)/mc L [facility] Monocyte % 11.6 % [facility] Monocyte Abs 0.4 0.3 - 0.9 x10(3)/mc L [facility] Eos % 0.6 % [facility] Eosinophils Abs 0.0 0.0 - 0.4 x10(3)/mc L [facility] Basophil % 0.6 % [facility] Baso Absolute 0.0 0.0 - 0.1 x10(3)/mc L [facility] Immature Gran % 0.60 % [facility] Comment: Immature granulocytes(IG's)percentage and absolute count will include metamyelocytes, myelocytes, and promyelocytes. Blood smears from CBCs yielding IG's will be scanned manually for concordance. If this scan disagrees with the automated IG or if promyelocytes are noted, a manual differential will be performed. Immature Gran Absolute 0.02 0.00 - 0.04 x10(3)/mc L [facility] Blood 07/05/2022 5:31 AM EST 07/05/2022 5:43 AM EST Narrative Resulting Agency Comment Spec In Lab Ian Duarte MD HEMATOLOGY ORDE LES [facility] [place] [address] * (ABNORMAL) Hemogram (07/05/2022 5:31 AM EST) White Blood Cell 3.4(L) 4.0 - 9.5 x10(3)/mc L [facility] Red Blood Cell 3.20(L) 4.00 - 5.21 x10(6)/mc L [facility] Hemoglobin 7.7(L) 11.7 - 15.5 g/dL [facility] Hematocrit 25.4(L) 35.7 - 45.8 % [facility] Mean Cell Volume 79.4(L) 82.6 - 94.4 fL [facility] Mean Cell Hemoglobin 24.1(L) 27.1 - 32.0 pg [facility] Mean Cell Hemoglobin Concentration 30.3(L) 31.7 - 35.0 g/dL [facility] Platelet 240 145 - 357 x10(3)/mc L [facility] RDW Standard Deviation 56.9(H) 37.0 - 46.0 fL [facility] RDW coefficient of variation 19.7(H) 11.5 - 14.1 % [facility] Mean Platelet Volume 9.5 7.6 - 12.9 fL [facility] NRBC% auto 0.0 % [facility] NRBC Absolute 0.000 0.000 - 0.000 x10(3)/ L [facility] Blood 07/05/2022 5:31 AM EST 07/05/2022 5:43 AM EST Narrative Resulting Agency Comment Spec In Lab Ian Duarte MD HEMATOLOGY CLEO SALDANA Performing Organization Address City/State/[facility] Co de Phone Number [facility] [place] [address] * (ABNORMAL) Comprehensive metabolic panel (non-fasting) (07/05/2022 5:31 AM EST) Glucose 85 65 - 199 mg/dL [facility] Comment:Diabetes: >=200 mg/d L plus symptoms Blood Urea Nitrogen 6(L) 8 - 18 mg/dL [facility] Creatinine 0.29(L) 0.70 - 1.20 mg/dL [facility] Sodium 142 135 - 145 mmol/L [facility] Potassium 3.8 3.5 - 5.0 mmol/L [facility] Comment: Please note: ??Patients with WBC >100,000 may have falsely elevated Potassium levels. ??For accurate Potassium quantification in these patients send serum separator tube (gold top) for subsequent determinations. ??Contact the Clinical Chemistry Laboratory if there are any questions. Chloride 108(H) 98 - 107 mmol/L [facility] Carbon Dioxide 25 22 - 31 mmol/L [facility] Anion Gap 9 5 - 15 mmol/L [facility] Calcium 8.4(L) 8.5 - 10.5 mg/dL [facility] Protein, Total 5.9(L) 6.1 - 8.0 g/dL [facility] Albumin 3.1(L) 3.2 - 5.2 g/dL [facility] Aspartate Aminotransferase 39(H) 0 - 30 unit/L [facility] Alanine Aminotransferase 74(H) 0 - 30 unit/L [facility] Alkaline Phosphatase 209(H) 35 - 105 unit/L [facility] Bilirubin, Total 0.4 0.2 - 1.3 mg/dL [facility] Est Glomerular Filtration Rate 148 >=60 mL/min/1. 73 m?? [facility] Comment: This patient's estimated [...] Lab Ian Duarte MD CHEMISTRY ORDER MYRANDA [facility] [place] [address] * IR All Drainage Procedures (07/04/2022 4:14 PM EST) Anatomical Region Laterality Modality X-Ray Angiograph y Narrative 07/04/2022 4:52 PM EST Preoperative Diagnosis: re accumulated Lumbar collection by CT, Fevers Postoperative Diagnosis: ?? Same Procedure Performed: Ultrasound and fluoroscopically guided drain placement. Operators: Mich Martino MD, Attending Estimated Blood Loss: Negligible. Fluoroscopy dose: ??Please see [facility] IR technologist record for procedural dose/time. [...] dilated over the wire and a 8.5 [place] drain was advanced over the wire into [...] performed the entire procedure. Ian Duarte MD G IR ORDERABL ES * (ABNORMAL) Differential, Automated (07/04/2022 6:07 AM EST) Neutrophil % 81.6 % [facility] Neutrophil Absolute 6.79(H) 1.70 - 6.10 x10(3)/mc L [facility] Lymph % 11.8 % [facility] Lymphocytes Abs 1.0 0.9 - 3.2 x10(3)/mc L [facility] Monocyte % 6.3 % [facility] Monocyte Abs 0.5 0.3 - 0.9 x10(3)/mc L [facility] Eos % 0.0 % [facility] Eosinophils Abs 0.0 0.0 - 0.4 x10(3)/mc L [facility] Basophil % 0.1 % [facility] Baso Absolute 0.0 0.0 - 0.1 x10(3)/mc L [facility] Immature Gran % 0.20 % [facility] Comment: Immature granulocytes(IG's)percentage and absolute count will include metamyelocytes, myelocytes, and promyelocytes. Blood smears from CBCs yielding IG's will be scanned manually for concordance. If this scan disagrees with the automated IG or if promyelocytes are noted, a manual differential will be performed. Immature Gran Absolute 0.02 0.00 - 0.04 x10(3)/mc L [facility] Blood 07/04/2022 6:07 AM EST 07/04/2022 6:14 AM EST Narrative Resulting Agency Comment Spec In Lab Ian Duarte MD HEMATOLOGY CLEO SALDANA [facility] [place] [address] * (ABNORMAL) Hemogram (07/04/2022 6:07 AM EST) White Blood Cell 8.3 4.0 - 9.5 x10(3)/mc L [facility] Red Blood Cell 3.38(L) 4.00 - 5.21 x10(6)/mc L [facility] Hemoglobin 8.3(L) 11.7 - 15.5 g/dL [facility] Hematocrit 26.0(L) 35.7 - 45.8 % [facility] Mean Cell Volume 76.9(L) 82.6 - 94.4 fL [facility] Mean Cell Hemoglobin 24.6(L) 27.1 - 32.0 pg [facility] Mean Cell Hemoglobin Concentration 31.9 31.7 - 35.0 g/dL [facility] Platelet 244 145 - 357 x10(3)/mc L [facility] RDW Standard Deviation 54.5(H) 37.0 - 46.0 fL [facility] RDW coefficient of variation 19.5(H) 11.5 - 14.1 % [facility] Mean Platelet Volume 9.3 7.6 - 12.9 fL [facility] NRBC% auto 0.0 % [facility] IT[facility]OR[facility] NRBC Absolute 0.000 0.000 - 0.000 x10(3)/mc L [facility] Blood 07/04/2022 6:07 AM EST 07/04/2022 6:14 AM EST Narrative Resulting Agency Comment Spec In Lab Ian Duarte MD HEMATOLOGY CLEO SALDANA Performing Organization Address [facility] Co de Phone Number [facility] [place] [address] * Lactate, whole blood, send to lab ([facility] [place]/[facility]) (07/04/2022 6:07 AM EST) Lactate WB 1.9 0.5 - 2.2 mmol/L [facility] Blood 07/04/2022 6:07 AM EST 07/04/2022 6:14 AM EST Narrative Resulting Agency Comment Spec In Lab Yury Saavedra MD CHEMISTRY ORDERABLE S Performing Organization Address City/[facility]/ZIP Co de Phone Number [facility] [place] [address] * (ABNORMAL) Basic Metabolic Panel (non-fasting) (07/04/2022 6:07 AM EST) Glucose 114 65 - 199 mg/dL [facility] Comment:Diabetes: >=200 mg/d L plus symptoms Blood Urea Nitrogen 8 8 - 18 mg/dL [facility] Creatinine 0.34(L) 0.70 - 1.20 mg/dL [facility] Sodium 134(L) 135 - 145 mmol/L [facility] Potassium 4.1 3.5 - 5.0 mmol/L [facility] Comment: Please note: ??Patients with WBC >100,000 may have falsely elevated Potassium levels. ??For accurate Potassium quantification in these patients send serum separator tube (gold top) for subsequent determinations. ??Contact the Clinical Chemistry Laboratory if there are any questions. Chloride 100 98 - 107 mmol/L [facility] Carbon Dioxide 24 22 - 31 mmol/L [facility] Anion Gap 10 5 - 15 mmol/L [facility] Calcium 8.4(L) 8.5 - 10.5 mg/dL [facility] Est Glomerular Filtration Rate 143 >=60 mL/min/1. 73 m?? [facility] Comment: This patient's estimated [...] Lab Ian Duarte MD CHEMISTRY ORDER MYRANDA [facility] [place] [address] * (ABNORMAL) Urinalysis Microscopic Exam (07/04/2022 3:05 AM EST) RBC, Urine 2 0 - 4 /HPF [facility] WBC, Urine 2 0 - 5 /HPF [facility] Squamous Epithelial Cells Raw Data, Urine 6(H) <=4 /HPF [facility] Triple Phosphate Crystal, Urine Occasional (A) None /HPF [facility] Clean Catch Urine 07/04/2022 3:05 AM EST 07/04/2022 3:10 AM EST Narrative Resulting Agency Comment Spec In Lab Yury Saavedra MD URINE ORDERABLES [facility] [place] [address] * (ABNORMAL) Urinalysis with reflex Culture (07/04/2022 3:05 AM EST) Glucose, Urine Dipstick Negative Negative mg/dL [facility] Protein, Urine Dipstick 30(A) Negative mg/dL [facility] Bilirubin, Urine Dipstick Negative Negative mg/dL [facility] Comment: Clinical correlation required for positive Urine Bilirubin results as false positive may occur with some drugs and drug related products. If a false positive is suspected a serum total bilirubin should be considered if clinically indicated. Urobilinogen, Urine Dipstick Normal Normal mg/dL [facility] pH, Urn (dipstick) 8.0 5.0 - 8.0 [facility] Blood, Urine Dipstick Negative Negative mg/dL [facility] Ketone, Urine Dipstick Negative Negative mg/dL [facility] Nitrite, Urine Dipstick Negative Negative [facility] Leukocytes, Urine Dipstick Trace(A) Negative [facility] Appearance, Urine Dipstick Cloudy(A) Clear [facility] Specific [place] Urine Automated >=1.030(A) 1.005 - 1.030 [facility] Color, Urine Dipstick Dark Yellow Yellow [facility] Reflex to Culture No [facility] Clean Catch Urine 07/04/2022 3:05 AM EST 07/04/2022 3:10 AM EST Narrative Resulting Agency Comment Spec In Lab Yury Saavedra MD URINE ORDERABLES Performing Organization Address City/[facility]/ZIP Co de Phone Number [facility] [place] [address] * (ABNORMAL) Lactate, whole blood, send to lab ([facility] [place]/[facility] [place]) (07/04/2022 12:50 AM EST) Lactate WB 2.6(H) 0.5 - 2.2 mmol/L [facility] Blood 07/04/2022 12:5 0 AM EST 07/04/2022 1:02 AM EST Narrative Resulting Agency Comment Spec In Lab Yury Saavedra MD CHEMISTRY ORDERABLE S Performing Organization Address [facility] Co de Phone Number [facility] [place] [address] * EKG 12 Lead (07/04/2022 12:16 AM EST) Ventricular rate 152 BPM MUSE SYSTEM Atrial Rate 152 BPM MUSE SYSTEM P-R Interval 112 ms MUSE SYSTEM QRS Duration 66 ms MUSE SYSTEM Q-T Interval 328 ms MUSE SYSTEM QTC Calculated (Bezet) 521 ms MUSE SYSTEM Calculated P Crumpton 13 degrees MUSE SYSTEM Calculated R Crumpton 7 degrees MUSE SYSTEM Calculated T Crumpton 54 degrees MUSE SYSTEM INTERPRETATION Sinus tachycardia Nonspecific T wave abnormality Abnormal ECG When compared with ECG of 01-JUL-2022 14:17, No significant change was found I personally reviewed the tracing and edited the fellows interpretation Confirmed by fellow Ravinder Garcia ([id number]) on 07/07/2022 4:08:27 AM Confirmed by MD CONTRERAS SALVATORE ([id number]) on 07/07/2022 10:33:36 AM MUSE SYSTEM 07/04/2022 12:1 6 AM EST 07/07/2022 10:33 AM EDT Yury Saavedra MD ECG ORDERABLES Performing Organization Address City/[facility]/ZIP Co de Phone Number MUSE SYSTEM * Lavender Tube HOLD (07/03/2022 11:05 PM EST) Lavender Hold Sample in lab. [facility] Blood Venous Draw / Unknown 07/03/2022 11:05 PM EST 07/03/2022 11:14 PM EST Yury Saavedra MD HEMATOLOGY ORDERABL ES Performing Organization Address City/[facility]/ZIP Co de Phone Number [facility] [place] [address] * (ABNORMAL) CRP, acute inflammation (07/03/2022 11:05 PM EST) C-Reactive Protein 73.7(H) <=4.9 mg/L [facility] Blood 07/03/2022 11:0 5 PM EST 07/03/2022 11:14 PM EST Narrative Resulting Agency Comment Spec In Lab Yury Saavedra MD CHEMISTRY ORDERABLE S Performing Organization Address [facility] Co de Phone Number [facility] [place] [address] * (ABNORMAL) Blood culture (07/03/2022 11:05 PM EST) Blood Culture Escherichia coli detected by PCR Isolate saved. If future testing is required, contact the Micro[facility]. (A) [facility] Gram Stain Anaerobic Growth detected in anaerobic bottle. Gram Negative Rods seen Results called to and read back by Zoila Rincon RN (A) [facility] Organism Escherichia coli(A) [facility] Organism Gram Negative Rods(A) [facility] Blood STRUCTURE OF RIGHT HAND [...] Performing Organization Address City/[facility] Co de Phone Number [facility] [place] [address] * Blood culture (07/03/2022 10:45 PM EST) Blood Culture No growth at 5 days. [facility] Blood STRUCTURE OF LEFT HAND / Unknown 07/03/2022 10:45 PM EST 07/04/2022 Narrative Resulting Agency Comment Spec In Lab Yury Saavedra MD MICROBIOLOGY - BLOO D ORDERABLES Performing Organization Address [facility] Co de Phone Number [facility] [place] [address] * CT Lumbar Spine w Contrast (07/03/2022 [...] questions please contact the health foster care worker that requested your imaging first. [...] have questions please contactthe health foster care worker that requested your imaging first. Ian Duarte MD [facility] CT ORDERABL ES * (ABNORMAL) Differential, Automated (07/03/2022 10:08 AM EST) Neutrophil % 50.0 % [facility] Neutrophil Absolute 1.61(L) 1.70 - 6.10 x10(3)/mc L [facility] Lymph % 37.0 % [facility] Lymphocytes Abs 1.2 0.9 - 3.2 x10(3)/mc L [facility] Monocyte % 10.9 % [facility] ITAL LABORAT[facility] Monocyte Abs 0.4 0.3 - 0.9 x10(3)/mc L [facility] Eos % 0.9 % [facility] Eosinophils Abs 0.0 0.0 - 0.4 x10(3)/mc L [facility] Basophil % 0.9 % [facility] Baso Absolute 0.0 0.0 - 0.1 x10(3)/mc L [facility] Immature Gran % 0.30 % [facility] Comment: Immature granulocytes(IG's)percentage and absolute count will include metamyelocytes, myelocytes, and promyelocytes. Blood smears from CBCs yielding IG's will be scanned manually for concordance. If this scan disagrees with the automated IG or if promyelocytes are noted, a manual differential will be performed. Immature Gran Absolute 0.01 0.00 - 0.04 x10(3)/mc L [facility] Blood 07/03/2022 10:0 8 AM EST 07/03/2022 10:19 AM EST Narrative Resulting Agency Comment Spec In Lab Ian Duarte MD HEMATOLOGY CLEO SALDANA Performing Organization Address City/State/[facility] Co de Phone Number [facility] [place] [address] * (ABNORMAL) Hemogram (07/03/2022 10:08 AM EST) White Blood Cell 3.2(L) 4.0 - 9.5 x10(3)/mc L [facility] Red Blood Cell 4.08 4.00 - 5.21 x10(6)/mc L [facility] Hemoglobin 9.9(L) 11.7 - 15.5 g/dL [facility] Hematocrit 32.2(L) 35.7 - 45.8 % [facility] Mean Cell Volume 78.9(L) 82.6 - 94.4 fL [facility] Mean Cell Hemoglobin 24.3(L) 27.1 - 32.0 pg [facility] Mean Cell Hemoglobin Concentration 30.7(L) 31.7 - 35.0 g/dL [facility] Platelet 307 145 - 357 x10(3)/mc L [facility] RDW Standard Deviation 53.3(H) 37.0 - 46.0 fL [facility] RDW coefficient of variation 19.0(H) 11.5 - 14.1 % [facility] Mean Platelet Volume 9.2 7.6 - 12.9 fL [facility] NRBC% auto 0.0 % [facility] IT[facility] NRBC Absolute 0.000 0.000 - 0.000 x10(3)/mc L [facility] Blood 07/03/2022 10:0 8 AM EST 07/03/2022 10:19 AM EST Narrative Resulting Agency Comment Spec In Lab Ian Duarte MD HEMATOLOGY ORDArthur SALDANA Performing Organization Address [facility] Co de Phone Number [facility] [place] [address] * (ABNORMAL) Sedimentation rate (07/03/2022 10:08 AM EST) Sedimentation Rate Automated 110(H) 2 - 37 mm/hr [facility] Comment: Effective April 06, 2019 new capillary photometric technology has resulted in a change in reference ranges. It is recommended that each ESR result be reviewed with its own age appropriate reference range. Blood 07/03/2022 10:0 8 AM EST 07/03/2022 10:19 AM EST Narrative Resulting Agency Comment Spec In Lab Ian Duarte MD HEMATOLOGY ORDArthur SALDANA Performing Organization Address [facility] Co de Phone Number [facility] [place] [address] * XR Chest One View (07/02/2022 5:04 [...] questions please contact the health foster care worker that requested your imaging first. [...] have questions please contactthe health foster care worker that requested your imaging first. Ian Duarte MD IMG DX ORDERABL ES * (ABNORMAL) Urinalysis Microscopic Exam (07/02/2022 3:35 PM EST) RBC, Urine 7(H) 0 - 4 /HPF [facility] WBC, Urine 3 0 - 5 /HPF [facility] Squamous Epithelial Cells Raw Data, Urine 4 <=4 /HPF [facility] Hyaline Casts, Urine 3(H) 0 - 2 /LPF [facility] Straight Catheter Urine 07/02/2022 3:35 PM EST 07/02/2022 4:10 PM EST Narrative Resulting Agency Comment Spec In Lab Ian Duarte MD URINE ORDERABLE S Performing Organization Address [facility] Co de Phone Number [facility] [place] [address] * (ABNORMAL) Urinalysis with reflex Culture (07/02/2022 3:35 PM EST) Glucose, Urine Dipstick Negative Negative mg/dL [facility] Protein, Urine Dipstick Negative Negative mg/dL [facility] Bilirubin, Urine Dipstick Negative Negative mg/dL [facility] Comment: Clinical correlation required for positive Urine Bilirubin results as false positive may occur with some drugs and drug related products. If a false positive is suspected a serum total bilirubin should be considered if clinically indicated. Urobilinogen, Urine Dipstick Normal Normal mg/dL [facility] pH, Urn (dipstick) 7.5 5.0 - 8.0 [facility] Blood, Urine Dipstick Trace(A) Negative mg/dL [facility] Ketone, Urine Dipstick Negative Negative mg/dL [facility] Nitrite, Urine Dipstick Negative Negative [facility] Leukocytes, Urine Dipstick Negative Negative mcL [facility] Appearance, Urine Dipstick Clear Clear [facility] Specific [place] Urine Automated 1.016 1.005 - 1.030 [facility] Color, Urine Dipstick Yellow Yellow [facility] Reflex to Culture No [facility] Straight Catheter Urine 07/02/2022 3:35 PM EST 07/02/2022 4:10 PM EST Narrative Resulting Agency Comment Spec In Lab Ian Duarte MD URINE ORDERABLE S Performing Organization Address [facility]/ZIP Co de Phone Number [facility] [place] [address] * Differential, Automated (07/02/2022 6:15 AM EST) [facility] Neutrophil % 57.6 % [facility] Neutrophil Absolute 1.89 1.70 - 6.10 x10(3)/[facility] LAB[facility] Lymph % 32.3 % [facility] Lymphocytes Abs 1.1 0.9 - 3.2 x10(3)/[facility] Monocyte % 9.5 % [facility] Monocyte Abs 0.3 0.3 - 0.9 x10(3)/[facility] Eos % 0.0 % [facility] Eosinophils Abs 0.0 0.0 - 0.4 x10(3)/[facility] Basophil % 0.3 % [facility] Baso Absolute 0.0 0.0 - 0.1 x10(3)/[facility] Immature Gran % 0.30 % [facility] Comment: Immature granulocytes(IG's)percentage and absolute count will include metamyelocytes, myelocytes, and promyelocytes. Blood smears from CBCs yielding IG's will be scanned manually for concordance. If this scan disagrees with the automated IG or if promyelocytes are noted, a manual differential will be performed. Immature Gran Absolute 0.01 0.00 - 0.04 x10(3)/[facility] LAB[facility] Blood 07/02/2022 6:15 AM EST 07/02/2022 6:49 AM EST Narrative Resulting Agency Comment Spec In Lab Ian Duarte MD HEMATOLOGY CLEO SALDANA [facility] [place] [address] * (ABNORMAL) Hemogram (07/02/2022 6:15 AM EST) [facility] White Blood Cell 3.3(L) 4.0 - 9.5 x10(3)/mc L [facility] Red Blood Cell 3.98(L) 4.00 - 5.21 x10(6)/[facility] LABORATORY Hemoglobin 9.6(L) 11.7 - 15.5 g/dL [facility] Hematocrit 30.7(L) 35.7 - 45.8 % [facility] Mean Cell Volume 77.1(L) 82.6 - 94.4 fL [facility] Mean Cell Hemoglobin 24.1(L) 27.1 - 32.0 pg [facility] Mean Cell Hemoglobin Concentration 31.3(L) 31.7 - 35.0 g/dL [facility] Platelet 336 145 - 357 x10(3)/mc L [facility] RDW Standard Deviation 51.1(H) 37.0 - 46.0 fL [facility] RDW coefficient of variation 18.6(H) 11.5 - 14.1 % [facility] Mean Platelet Volume 9.1 7.6 - 12.9 fL [facility] NRBC% auto 0.0 % [facility] IT[facility] NRBC Absolute 0.000 0.000 - 0.000 x10(3)/mc L [facility] Blood 07/02/2022 6:15 AM EST 07/02/2022 6:49 AM EST Narrative Resulting Agency Comment Spec In Lab Ian Duarte MD HEMATOLOGY ORDE LES Performing Organization Address City/[facility] Co de Phone Number [facility] [place] [address] * TSH Ogle (07/02/2022 6:15 AM EST) Thyroid Stimulating Hormone 1.45 0.27 - 4.20 mcIU/mL [facility] Comment: Reference Interval (mcIU/mL): Females: ??First Trimester: 0.23-3.88 ??Second Trimester: 0.22-3.90 ??Third Trimester: 0.44-4.66 Blood 07/02/2022 6:15 AM EST 07/02/2022 6:49 AM EST Narrative Resulting Agency Comment Spec In Lab Ian Duarte MD CHEMISTRY ORDER MYRANDA Performing Organization Address City/[facility]/ZIP Co de Phone Number [facility] [place] [address] * (ABNORMAL) Basic Metabolic Panel (non-fasting) (07/02/2022 6:15 AM EST) Glucose 91 65 - 199 mg/dL [facility] Comment:Diabetes: >=200 mg/d L plus symptoms Blood Urea Nitrogen 5(L) 8 - 18 mg/dL [facility] Creatinine 0.24(L) 0.70 - 1.20 mg/dL [facility] Sodium 134(L) 135 - 145 mmol/L [facility] Potassium 4.0 3.5 - 5.0 mmol/L [facility] Comment: Please note: ??Patients with WBC >100,000 may have falsely elevated Potassium levels. ??For accurate Potassium quantification in these patients send serum separator tube (gold top) for subsequent determinations. ??Contact the Clinical Chemistry Laboratory if there are any questions. Chloride 100 98 - 107 mmol/L [facility] Carbon Dioxide 24 22 - 31 mmol/L [facility] Anion Gap 10 5 - 15 mmol/L [facility] Calcium 8.7 8.5 - 10.5 mg/dL [facility] Est Glomerular Filtration Rate 155 >=60 mL/min/1. 73 m?? [facility] Comment: This patient's estimated [...] Lab Ian Duarte MD CHEMISTRY ORDER MYRANDA [facility] [address] * (ABNORMAL) Sedimentation rate (07/02/2022 6:15 AM EST) Sedimentation Rate Automated 89(H) 2 - 37 mm/hr [facility] Comment: Effective April 06, 2019 new capillary photometric technology has resulted in a change in reference ranges. It is recommended that each ESR result be reviewed with its own age appropriate reference range. Blood 07/02/2022 6:15 AM EST 07/02/2022 6:49 AM EST Narrative Resulting Agency Comment Spec In Lab Ian Duarte MD HEMATOLOGY ORDE RABLES [facility] [place] [address] * Blood culture (07/01/2022 8:21 PM EST) Pathologist [facility] Blood Culture No growth at 5 days. [facility] Blood 07/01/2022 8:21 PM EST 07/01/2022 8:57 PM EST Comment:RH Narrative Resulting Agency Comment Spec In Lab Ian Duarte MD MICROBIOLOGY - BLOOD ORDERABLES Performing Organization Address City/[facility]/ZIP Co de Phone Number [facility] [place] [address] * Magnesium (07/01/2022 6:14 PM EST) Pathologist [facility] Magnesium 0.74 0.69 - 1.07 mmol/L [facility] Blood 07/01/2022 6:14 PM EST 07/01/2022 6:21 PM EST Narrative Resulting Agency Comment Spec In Lab Ian Duarte MD CHEMISTRY ORDER MYRANDA Performing Organization Address City/[facility]/ZIP Co de Phone Number [facility] [place] [address] * Lactate, whole blood, send to lab ([facility]) (07/01/2022 6:14 PM EST) Pathologist [facility] Lactate WB 1.7 0.5 - 2.2 mmol/L [facility] Blood 07/01/2022 6:14 PM EST 07/01/2022 6:21 PM EST Narrative Resulting Agency Comment Spec In Lab Ian Duarte MD CHEMISTRY ORDER MYRANDA [facility] [place] [address] * IR Drain Check/Change/Remove (07/01/2022 3:35 PM [...] sterile barrier technique was used throughout. ?? Building Custodian fluoroscopic images were obtained. ??Contrast was injected [...] (Bezet) 443 ms MUSE SYSTEM Calculated P Crumpton 37 degrees MUSE SYSTEM Calculated R Crumpton 62 degrees MUSE SYSTEM Calculated T Crumpton 19 degrees MUSE SYSTEM INTERPRETATION Sinus tachycardia Nonspecific T wave abnormality Otherwise normal ECG When compared with ECG of 29-JUN-2022 08:55, No significant change was found Confirmed by Lyndon Lafleur ([id number]) on 07/02/2022 5:10:53 PM MUSE SYSTEM 07/01/2022 2:17 PM EST 07/02/2022 5:10 PM EST Ian Duarte MD ECG ORDERABLES MUSE SYSTEM * Differential, Automated (07/01/2022 5:50 AM EST) Neutrophil % 75.5 % [facility] Neutrophil Absolute 4.41 1.70 - 6.10 x10(3)/[facility] LABORATORY Lymph % 15.0 % [facility] Lymphocytes Abs 0.9 0.9 - 3.2 x10(3)/[facility] LAB[facility]ATORY Monocyte % 7.7 % [facility] ITAL LABOR[facility] Monocyte Abs 0.4 0.3 - 0.9 x10(3)/[facility] LABORATORY Eos % 1.0 % [facility] Eosinophils Abs 0.1 0.0 - 0.4 x10(3)/[facility] LABORATORY Basophil % 0.5 % [facility] ITAL LABORATORY Baso Absolute 0.0 0.0 - 0.1 x10(3)/[facility] LABORATORY Immature Gran % 0.30 % [facility] Comment: Immature granulocytes(IG's)percentage and absolute count will include metamyelocytes, myelocytes, and promyelocytes. Blood smears from CBCs yielding IG's will be scanned manually for concordance. If this scan disagrees with the automated IG or if promyelocytes are noted, a manual differential will be performed. Immature Gran Absolute 0.02 0.00 - 0.04 x10(3)/[facility] LABORATORY Blood 07/01/2022 5:50 AM EST 07/01/2022 6:17 AM EST Narrative Resulting Agency Comment Spec In Lab Estevan Alfaro MD HEMATOLOGY ORDERABLE S [facility] [place] [address] * (ABNORMAL) Hemogram (07/01/2022 5:50 AM EST) White Blood Cell 5.8 4.0 - 9.5 x10(3)/mc L [facility] Red Blood Cell 3.84(L) 4.00 - 5.21 x10(6)/mc L [facility] Hemoglobin 9.3(L) 11.7 - 15.5 g/dL [facility] Hematocrit 29.6(L) 35.7 - 45.8 % [facility] Mean Cell Volume 77.1(L) 82.6 - 94.4 fL [facility] Mean Cell Hemoglobin 24.2(L) 27.1 - 32.0 pg [facility] Mean Cell Hemoglobin Concentration 31.4(L) 31.7 - 35.0 g/dL [facility] Platelet 352 145 - 357 x10(3)/mc L [facility] RDW Standard Deviation 51.2(H) 37.0 - 46.0 fL [facility] RDW coefficient of variation 18.6(H) 11.5 - 14.1 % [facility] Mean Platelet Volume 9.3 7.6 - 12.9 fL [facility] NRBC% auto 0.0 % [facility] IT[facility] NRBC Absolute 0.000 0.000 - 0.000 x10(3)/mc L [facility] Blood 07/01/2022 5:50 AM EST 07/01/2022 6:17 AM EST Narrative Resulting Agency Comment Spec In Lab Estevan Alfaro MD HEMATOLOGY ORDERABLE S Performing Organization Address [facility] Co de Phone Number [facility] [place] [address] * (ABNORMAL) CRP, acute inflammation (07/01/2022 5:50 AM EST) C-Reactive Protein 53.1(H) <=4.9 mg/L [facility] Comment:result rechecked-KS Blood 07/01/2022 5:50 AM EST 07/01/2022 6:17 AM EST Narrative Resulting Agency Comment Spec In Lab Ian Duarte MD CHEMISTRY ORDER MYRANDA Performing Organization Address [facility] Co de Phone Number [facility] [place] [address] * (ABNORMAL) Sedimentation rate (07/01/2022 5:50 AM EST) Sedimentation Rate Automated >119(H) 2 - 37 mm/hr [facility] Comment: Effective April 06, 2019 new capillary photometric technology has resulted in a change in reference ranges. It is recommended that each ESR result be reviewed with its own age appropriate reference range. Blood 07/01/2022 5:50 AM EST 07/01/2022 6:17 AM EST Narrative Resulting Agency Comment Spec In Lab Ian Duarte MD HEMATOLOGY ORDE RABLES Performing Organization Address City/[facility]/ZIP Co de Phone Number [facility] [place] [address] * (ABNORMAL) BMP w/fasting Glucose (07/01/2022 5:50 AM EST) [facility] Signature Glucose Fasting 95 65 - 99 mg/dL [facility] Comment: ?Fasting* Glucose Interpretive Criteria [...] of Diabetes Mellitus, Position Statement from the [place] [employer]. ??Diabetes Care, Volume 33, Supplement 1, Apr 2009 Blood Urea Nitrogen 10 8 - 18 mg/dL [facility] Creatinine 0.25(L) 0.70 - 1.20 mg/dL [facility] Sodium 138 135 - 145 mmol/L [facility] Potassium 4.1 3.5 - 5.0 mmol/L [facility] Comment: Please note: ??Patients with WBC >100,000 may have falsely elevated Potassium levels. ??For accurate Potassium quantification in these patients send serum separator tube (gold top) for subsequent determinations. ??Contact the Clinical Chemistry Laboratory if there are any questions. Chloride 103 98 - 107 mmol/L [facility] Carbon Dioxide 24 22 - 31 mmol/L [facility] Anion Gap 11 5 - 15 mmol/L [facility] Calcium 9.0 8.5 - 10.5 mg/dL [facility] Est Glomerular Filtration Rate 154 >=60 mL/min/1. 73 m?? [facility] Comment: This patient's estimated [...] Alfaro MD CHEMISTRY ORDERABLES Performing Organization Address City/[facility]/ZIP [place] [address] * Differential, Automated (06/30/2022 4:29 AM EST) Neutrophil % 57.6 % [facility] Neutrophil Absolute 3.68 1.70 - 6.10 x10(3)/[facility] LABORATORY Lymph % 33.2 % [facility] Lymphocytes Abs 2.1 0.9 - 3.2 x10(3)/[facility] LABORATORY Monocyte % 7.0 % [facility] Monocyte Abs 0.4 0.3 - 0.9 x10(3)/[facility] LABORATORY Eos % 1.4 % [facility] Eosinophils Abs 0.1 0.0 - 0.4 x10(3)/[facility] LABORAT[facility] Basophil % 0.5 % [facility] Baso Absolute 0.0 0.0 - 0.1 x10(3)/[facility] LABORATORY Immature Gran % 0.30 % [facility] Comment: Immature granulocytes(IG's)percentage and absolute count will include metamyelocytes, myelocytes, and promyelocytes. Blood smears from CBCs yielding IG's will be scanned manually for concordance. If this scan disagrees with the automated IG or if promyelocytes are noted, a manual differential will be performed. Immature Gran Absolute 0.02 0.00 - 0.04 x10(3)/[facility] LABORATORY Blood 06/30/2022 4:29 AM EST 06/30/2022 4:51 AM EST Narrative Resulting Agency Comment Spec In Lab Estvean Alfaro MD HEMATOLOGY ORDERABLE S Performing Organization Address City/[facility]/ZIP Co de [facility] [place] [address] * (ABNORMAL) Hemogram (06/30/2022 4:29 AM EST) White Blood Cell 6.4 4.0 - 9.5 x10(3)/ L [facility] Red Blood Cell 3.96(L) 4.00 - 5.21 x10(6)/ L [facility] Hemoglobin 9.4(L) 11.7 - 15.5 g/dL [facility] Hematocrit 30.4(L) 35.7 - 45.8 % [facility] Mean Cell Volume 76.8(L) 82.6 - 94.4 fL [facility] Mean Cell Hemoglobin 23.7(L) 27.1 - 32.0 pg [facility] Mean Cell Hemoglobin Concentration 30.9(L) 31.7 - 35.0 g/dL [facility] Platelet 349 145 - 357 x10(3)/ L [facility] RDW Standard Deviation 50.4(H) 37.0 - 46.0 fL [facility] RDW coefficient of variation 18.4(H) 11.5 - 14.1 % [facility] Mean Platelet Volume 9.3 7.6 - 12.9 fL [facility] NRBC% auto 0.0 % [facility] IT[facility] LABORATORY NRBC Absolute 0.000 0.000 - 0.000 x10(3)/ L [facility] Blood 06/30/2022 4:29 AM EST 06/30/2022 4:51 AM EST Narrative Resulting Agency Comment Spec In Lab Estevan Alfaro MD HEMATOLOGY ORDERABLE S [facility] [place] [address] * (ABNORMAL) BMP w/fasting Glucose (06/30/2022 4:29 AM EST) Glucose Fasting 86 65 - 99 mg/dL [facility] Comment: ?Fasting* Glucose Interpretive Criteria [...] of Diabetes Mellitus, Position Statement from the [place] [employer]. ??Diabetes Care, Volume 33, Supplement 1, Apr 2009 Blood Urea Nitrogen 11 8 - 18 mg/dL [facility] Creatinine 0.22(L) 0.70 - 1.20 mg/dL [facility] Sodium 142 135 - 145 mmol/L [facility] Potassium 3.7 3.5 - 5.0 mmol/L [facility] Comment: Please note: ??Patients with WBC >100,000 may have falsely elevated Potassium levels. ??For accurate Potassium quantification in these patients send serum separator tube (gold top) for subsequent determinations. ??Contact the Clinical Chemistry Laboratory if there are any questions. Chloride 105 98 - 107 mmol/L [facility] Carbon Dioxide 25 22 - 31 mmol/L [facility] Anion Gap 12 5 - 15 mmol/L [facility] Calcium 8.9 8.5 - 10.5 mg/dL [facility] Est Glomerular Filtration Rate 159 >=60 mL/min/1. 73 m?? [facility] Comment: This patient's estimated [...] Alfaro MD CHEMISTRY ORDERABLES Performing Organization Address City/[facility]/ZIP Co de Phone Number [facility] [place] [address] * EKG 12 Lead (06/29/2022 8:55 AM EST) Pathologist [facility] Ventricular rate 112 BPM MUSE SYSTEM Atrial Rate 112 BPM MUSE SYSTEM P-R Interval 124 ms MUSE SYSTEM QRS Duration 78 ms MUSE SYSTEM Q-T Interval 336 ms MUSE SYSTEM QTC Calculated (Bezet) 458 ms MUSE SYSTEM Calculated P [place] 22 degrees MUSE SYSTEM Calculated R [place] 8 degrees MUSE SYSTEM Calculated T [place] 69 degrees MUSE SYSTEM INTERPRETATION Sinus tachycardia Nonspecific T wave abnormality Abnormal ECG When compared with ECG of 26-JUN-2022 20:46, Minimal criteria for Inferior infarct are no longer Present Nonspecific T wave abnormality, worse in Lateral leads Confirmed by MD Shabazz Danette ([id number]) on 06/29/2022 9:49:48 PM MUSE SYSTEM 06/29/2022 8:55 AM EST 06/29/2022 9:49 PM EST Estevan Alfaro MD ECG ORDERABLES Performing Organization Address [facility]/ZIP Co de Phone Number MUSE SYSTEM * TSH (06/29/2022 5:58 AM EST) Pathologist [facility] Thyroid Stimulating Hormone 1.84 0.27 - 4.20 mcIU/mL [facility] Comment: Reference Interval (mcIU/mL): Females: ??First Trimester: 0.23-3.88 ??Second Trimester: 0.22-3.90 ??Third Trimester: 0.44-4.66 Blood Venous Draw / Unknown 06/29/2022 5:58 AM EST 06/29/2022 6:10 AM EST Narrative Resulting Agency Comment Spec In Lab Estevan Alfaro MD CHEMISTRY ORDERABLES Performing Organization Address City/[facility]/ZIP Co de Phone Number [facility] [place] [address] * Magnesium (06/29/2022 5:58 AM EST) [facility] Magnesium 0.88 0.69 - 1.07 mmol/L [facility] Blood Venous Draw / Unknown 06/29/2022 5:58 AM EST 06/29/2022 6:10 AM EST Narrative Resulting Agency Comment Spec In Lab Estevan Alfaro MD CHEMISTRY ORDERABLES Performing Organization Address City/[facility]/ZIP Co de Phone Number [facility] [place] [address] * Differential, Automated (06/29/2022 5:58 AM EST) Neutrophil % 61.0 % [facility] Neutrophil Absolute 3.44 1.70 - 6.10 x10(3)/[facility] LABORATORY Lymph % 26.5 % [facility] Lymphocytes Abs 1.5 0.9 - 3.2 x10(3)/[facility] LABORATORY Monocyte % 9.0 % [facility] ITAL LABORATORY Monocyte Abs 0.5 0.3 - 0.9 x10(3)/[facility] LABORATORY Eos % 2.1 % [facility] Eosinophils Abs 0.1 0.0 - 0.4 x10(3)/[facility] LABORATORY Basophil % 0.9 % [facility] Baso Absolute 0.0 0.0 - 0.1 x10(3)/[facility] LABORATORY Immature Gran % 0.50 % [facility] Comment: Immature granulocytes(IG's)percentage and absolute count will include metamyelocytes, myelocytes, and promyelocytes. Blood smears from CBCs yielding IG's will be scanned manually for concordance. If this scan disagrees with the automated IG or if promyelocytes are noted, a manual differential will be performed. Immature Gran Absolute 0.03 0.00 - 0.04 x10(3)/[facility] LABORATORY Blood 06/29/2022 5:58 AM EST 06/29/2022 6:06 AM EST Narrative Resulting Agency Comment Spec In Lab Estevan Alfaro MD HEMATOLOGY ORDERABLE S Performing Organization Address City/[facility]/ZIP [place] [address] * (ABNORMAL) Hemogram (06/29/2022 5:58 AM EST) White Blood Cell 5.6 4.0 - 9.5 x10(3)/ L [facility] Red Blood Cell 4.11 4.00 - 5.21 x10(6)/mc L [facility] Hemoglobin 9.8(L) 11.7 - 15.5 g/dL [facility] Hematocrit 31.7(L) 35.7 - 45.8 % [facility] Mean Cell Volume 77.1(L) 82.6 - 94.4 fL [facility] Mean Cell Hemoglobin 23.8(L) 27.1 - 32.0 pg [facility] Mean Cell Hemoglobin Concentration 30.9(L) 31.7 - 35.0 g/dL [facility] Platelet 345 145 - 357 x10(3)/mc L [facility] RDW Standard Deviation 50.5(H) 37.0 - 46.0 fL [facility] RDW coefficient of variation 18.3(H) 11.5 - 14.1 % [facility] Mean Platelet Volume 9.2 7.6 - 12.9 fL [facility] NRBC% auto 0.0 % [facility] NRBC Absolute 0.000 0.000 - 0.000 x10(3)/ L [facility] Blood 06/29/2022 5:58 AM EST 06/29/2022 6:06 AM EST Narrative Resulting Agency Comment Spec In Lab Estevan Alfaro MD HEMATOLOGY ORDERABLE S Performing Organization Address City/State/[facility] Co de Phone Number [facility] [place] [address] * (ABNORMAL) BMP w/fasting Glucose (06/29/2022 5:58 AM EST) Glucose Fasting 90 65 - 99 mg/dL [facility] Comment: ?Fasting* Glucose Interpretive Criteria [...] of Diabetes Mellitus, Position Statement from the [place] [employer]. ??Diabetes Care, Volume 33, Supplement 1, Apr 2009 Blood Urea Nitrogen 11 8 - 18 mg/dL [facility] Creatinine 0.25(L) 0.70 - 1.20 mg/dL [facility] Sodium 134(L) 135 - 145 mmol/L [facility] Potassium 4.1 3.5 - 5.0 mmol/L [facility] Comment: Please note: ??Patients with WBC >100,000 may have falsely elevated Potassium levels. ??For accurate Potassium quantification in these patients send serum separator tube (gold top) for subsequent determinations. ??Contact the Clinical Chemistry Laboratory if there are any questions. Chloride 102 98 - 107 mmol/L [facility] Carbon Dioxide 21(L) 22 - 31 mmol/L [facility] Anion Gap 11 5 - 15 mmol/L [facility] Calcium 9.0 8.5 - 10.5 mg/dL [facility] Est Glomerular Filtration Rate 154 >=60 mL/min/1. 73 m?? [facility] Comment: This patient's estimated [...] In Lab Estevan Alfaro MD CHEMISTRY ORDERABLES [facility] [place] [address] * (ABNORMAL) Respiratory Panel PCR (06/28/2022 2:58 PM EST) Respiratory Panel Source [employer] Swab [facility] Respiratory Panel PCR Positive(A) Negative [facility] Comment: Respiratory Panels are performed on the [employer], using multiplexed PCR nucleic acid detection. ??Negative results do not preclude respiratory infection and should not be used as the sole basis for diagnosis, treatment or other management decisions. Adenovirus Not Detected Not Detected [facility] Coronavirus HKU1 Not Detected Not Detected [facility] Coronavirus NL63 Not Detected Not Detected [facility] Coronavirus 229E Not Detected Not Detected [facility] Coronavirus OC43 Not Detected Not Detected [facility] SARS-CoV-2 Not Detected Not Detected [facility] Comment: Testing for SARS-CoV-2 (Severe acute respiratory syndrome coronavirus 2) to aid in the diagnosis of COVID-19 is performed using the [employer] Respiratory Panel 2.1 (Enpirion) as authorized by the FDA issued Emergency Use Authorization (EUA). This panel also tests for multiple other viral and bacterial pathogens. This assay is intended for In-vitro Diagnostic (IVD) use with nasopharyngeal swabs in viral transport media. The assay is performed based on the instructions for use and additional guidance provided by the FDA. Testing is performed in laboratories within the [facility], each of which is certified under [...] fact sheets at the following FDA website: https://www.fda.gov/medical-devices/hqkhvecipyf-zavphqv-0982-ruati-84-oeuxiiqes- use-a kuojgxtkvzudw-imvelbv-nchqkib/rxrcw-rvvmtbsbtkz-dfbl Human Metapneumovirus Not Detected Not Detected [facility] Human Rhinovirus/Enterov irus Not Detected Not Detected [facility] Influenza A Not Detected Not Detected [facility] Influenza B Not Detected Not Detected [facility] Parainfluenza 1 Not Detected Not Detected [facility] Parainfluenza 2 Not Detected Not Detected [facility] Parainfluenza 3 Detected(A) Not Detected [facility] Parainfluenza 4 Not Detected Not Detected [facility] Respiratory Syncytial Virus Not Detected Not Detected [facility] Chlamydophila pneumoniae Not Detected Not Detected [facility] Mycoplasma pneumoniae Not Detected Not Detected [facility] Nasopharyngeal Swab 06/29/19 2:58 PM EST 06/28/2022 4:24 PM EST Narrative Resulting Agency Comment Spec In Lab Estevan Alfaro MD MICROBIOLOGY - GENER AL ORDERABLES [facility] [place] [address] * Differential, Automated (06/28/2022 5:38 AM EST) Neutrophil % 54.1 % [facility] Neutrophil Absolute 3.04 1.70 - 6.10 x10(3)/mcL [facility] Lymph % 34.3 % [facility] Lymphocytes Abs 1.9 0.9 - 3.2 x10(3)/[facility] LABOR[facility] Monocyte % 8.7 % [facility] Monocyte Abs 0.5 0.3 - 0.9 x10(3)/[facility] Eos % 2.0 % [facility] Eosinophils Abs 0.1 0.0 - 0.4 x10(3)/[facility] Basophil % 0.5 % [facility] Baso Absolute 0.0 0.0 - 0.1 x10(3)/[facility] Immature Gran % 0.40 % [facility] Comment: Immature granulocytes(IG's)percentage and absolute count will include metamyelocytes, myelocytes, and promyelocytes. Blood smears from CBCs yielding IG's will be scanned manually for concordance. If this scan disagrees with the automated IG or if promyelocytes are noted, a manual differential will be performed. Immature Gran Absolute 0.02 0.00 - 0.04 x10(3)/[facility] Blood 06/28/2022 5:38 AM EST 06/28/2022 5:54 AM EST Narrative Resulting Agency Comment Spec In Lab Anurag Call DO HEMATOLOGY ORDERABLE S Performing Organization Address City/State/[facility] Co de Phone Number [facility] [place] [address] * (ABNORMAL) Hemogram (06/28/2022 5:38 AM EST) White Blood Cell 5.6 4.0 - 9.5 x10(3)/mc L [facility] Red Blood Cell 4.08 4.00 - 5.21 x10(6)/mc L [facility] Hemoglobin 9.9(L) 11.7 - 15.5 g/dL [facility] Hematocrit 31.6(L) 35.7 - 45.8 % [facility] Mean Cell Volume 77.5(L) 82.6 - 94.4 fL [facility] Mean Cell Hemoglobin 24.3(L) 27.1 - 32.0 pg [facility] Mean Cell Hemoglobin Concentration 31.3(L) 31.7 - 35.0 g/dL [facility] Platelet 371(H) 145 - 357 x10(3)/mc L [facility] RDW Standard Deviation 50.5(H) 37.0 - 46.0 fL [facility] RDW coefficient of variation 18.2(H) 11.5 - 14.1 % [facility] Mean Platelet Volume 9.3 7.6 - 12.9 fL [facility] NRBC% auto 0.0 % [facility] NRBC Absolute 0.000 0.000 - 0.000 x10(3)/mc L [facility] Blood 06/28/2022 5:38 AM EST 06/28/2022 5:54 AM EST Narrative Resulting Agency Comment Spec In Lab Anurag Call DO HEMATOLOGY ORDERABLE S Performing Organization Address City/[facility] Co de Phone Number [facility] [place] [address] * Magnesium (06/28/2022 5:38 AM EST) Magnesium 0.78 0.69 - 1.07 mmol/L [facility] Blood 06/28/2022 5:38 AM EST 06/28/2022 5:54 AM EST Narrative Resulting Agency Comment Spec In Lab Anurag Call DO CHEMISTRY ORDERABLES Performing Organization Address City/[facility] Co de Phone Number [facility] [place] [address] * (ABNORMAL) Basic Metabolic Panel (non-fasting) (06/28/2022 5:38 AM EST) Glucose 95 65 - 199 mg/dL [facility] Comment:Diabetes: >=200 mg/d L plus symptoms Blood Urea Nitrogen 11 8 - 18 mg/dL [facility] Creatinine 0.27(L) 0.70 - 1.20 mg/dL [facility] Sodium 137 135 - 145 mmol/L [facility] Potassium 4.0 3.5 - 5.0 mmol/L [facility] Comment: Please note: ??Patients with WBC >100,000 may have falsely elevated Potassium levels. ??For accurate Potassium quantification in these patients send serum separator tube (gold top) for subsequent determinations. ??Contact the Clinical Chemistry Laboratory if there are any questions. Chloride 102 98 - 107 mmol/L [facility] Carbon Dioxide 25 22 - 31 mmol/L [facility] Anion Gap 10 5 - 15 mmol/L [facility] Calcium 9.1 8.5 - 10.5 mg/dL [facility] Est Glomerular Filtration Rate 151 >=60 mL/min/1. 73 m?? [facility] Comment: This patient's estimated [...] Call DO CHEMISTRY ORDERABLES Performing Organization Address [facility] Co de Phone Number [facility] [place] [address] * (ABNORMAL) CRP, acute inflammation (06/28/2022 5:38 AM EST) C-Reactive Protein 53.8(H) <=4.9 mg/L [facility] Blood 06/28/2022 5:38 AM EST 06/28/2022 5:54 AM EST Narrative Resulting Agency Comment Spec In Lab Anurag Call DO CHEMISTRY ORDERABLES Performing Organization Address [facility] Co de Phone Number [facility] [place] [address] * (ABNORMAL) Sedimentation rate (06/28/2022 5:38 AM EST) Sedimentation Rate Automated 113(H) 2 - 37 mm/hr [facility] Comment: Effective April 06, 2019 new capillary photometric technology has resulted in a change in reference ranges. It is recommended that each ESR result be reviewed with its own age appropriate reference range. Blood 06/28/2022 5:38 AM EST 06/28/2022 5:54 AM EST Narrative Resulting Agency Comment Spec In Lab Anurag Call DO HEMATOLOGY ORDERABLE S [facility] [place] [address] * Differential, Automated (06/27/2022 5:58 AM EST) Neutrophil % 50.4 % [facility] Neutrophil Absolute 2.79 1.70 - 6.10 x10(3)/[facility] Lymph % 38.7 % [facility] Lymphocytes Abs 2.1 0.9 - 3.2 x10(3)/[facility] Monocyte % 8.0 % [facility] Monocyte Abs 0.4 0.3 - 0.9 x10(3)/[facility] Eos % 1.8 % [facility] Eosinophils Abs 0.1 0.0 - 0.4 x10(3)/[facility] Basophil % 0.7 % [facility] Baso Absolute 0.0 0.0 - 0.1 x10(3)/[facility] Immature Gran % 0.40 % [facility] Comment: Immature granulocytes(IG's)percentage and absolute count will include metamyelocytes, myelocytes, and promyelocytes. Blood smears from CBCs yielding IG's will be scanned manually for concordance. If this scan disagrees with the automated IG or if promyelocytes are noted, a manual differential will be performed. Immature Gran Absolute 0.02 0.00 - 0.04 x10(3)/[facility] Blood 06/27/2022 5:58 AM EST 06/27/2022 6:24 AM EST Narrative Resulting Agency Comment Spec In Lab Eddi Vázquez MD HEMATOLOGY ORDERABLE S [facility] [place] [address] * (ABNORMAL) Hemogram (06/27/2022 5:58 AM EST) White Blood Cell 5.5 4.0 - 9.5 x10(3)/mc L [facility] Red Blood Cell 3.85(L) 4.00 - 5.21 x10(6)/mc L [facility] Hemoglobin 9.2(L) 11.7 - 15.5 g/dL [facility] Hematocrit 30.0(L) 35.7 - 45.8 % [facility] Mean Cell Volume 77.9(L) 82.6 - 94.4 fL [facility] Mean Cell Hemoglobin 23.9(L) 27.1 - 32.0 pg [facility] Mean Cell Hemoglobin Concentration 30.7(L) 31.7 - 35.0 g/dL [facility] Platelet 389(H) 145 - 357 x10(3)/mc L [facility] RDW Standard Deviation 50.5(H) 37.0 - 46.0 fL [facility] RDW coefficient of variation 17.9(H) 11.5 - 14.1 % [facility] Mean Platelet Volume 9.4 7.6 - 12.9 fL [facility] NRBC% auto 0.0 % [facility] NRBC Absolute 0.000 0.000 - 0.000 x10(3)/mc L [facility] Blood 06/27/2022 5:58 AM EST 06/27/2022 6:24 AM EST Narrative Resulting Agency Comment Spec In Lab Eddi Vázquez MD HEMATOLOGY ORDERABLE S [facility] [place] [address] * (ABNORMAL) Basic Metabolic Panel (non-fasting) (06/27/2022 5:58 AM EST) Glucose 97 65 - 199 mg/dL [facility] Comment:Diabetes: >=200 mg/d L plus symptoms Blood Urea Nitrogen 12 8 - 18 mg/dL [facility] Creatinine 0.32(L) 0.70 - 1.20 mg/dL [facility] Sodium 138 135 - 145 mmol/L [facility] Potassium 3.9 3.5 - 5.0 mmol/L [facility] Comment: Please note: ??Patients with WBC >100,000 may have falsely elevated Potassium levels. ??For accurate Potassium quantification in these patients send serum separator tube (gold top) for subsequent determinations. ??Contact the Clinical Chemistry Laboratory if there are any questions. Chloride 102 98 - 107 mmol/L [facility] Carbon Dioxide 25 22 - 31 mmol/L [facility] Anion Gap 11 5 - 15 mmol/L [facility] Calcium 9.2 8.5 - 10.5 mg/dL [facility] Est Glomerular Filtration Rate 145 >=60 mL/min/1. 73 m?? [facility] Comment: This patient's estimated [...] In Lab Eddi Vázquez MD CHEMISTRY ORDERABLES [facility] [place] [place] [address] * (ABNORMAL) Blood Gas Venous (NL) (06/26/2022 9:01 PM EST) pH, Venous 7.45(H) 7.32 - 7.42 [facility] PCO2, Venous 40(L) 41 - 51 mmHg [facility] PO2, Venous 70(H) 25 - 40 mmHg [facility] Bicarbonate, Venous 27.2 mmol/L [facility] Base Excess, Venous 3.2 mmol/L [facility] Hgb Blood Gas 11.5(L) 11.7 - 15.5 g/dL [facility] Oxyhemoglobin, Venous 94.6 % [facility] Carboxyhemoglob in, Venous 0.1 % [facility] Comment: Nonsmokers: 0.5-1.5% COHB Smokers: Variable, but usually less than 10% Toxic: 20-30% COHB Lethal: Greater than 60% COHB Methemoglobin, Venous 0.3 <=1.5 % [facility] Na Whole Blood 140 135 - 145 mmol/L [facility] K Whole Blood 4.2 3.5 - 5.0 mmol/L [facility] Comment: Please note: Patients with WBC >100,000 may have falsely elevated Potassium levels. Contact the Clinical Chemistry Laboratory if there are any questions. ICa Whole Blood 1.20 1.15 - 1.33 mmol/L [facility] Comment: Note: ??Total bilirubin higher than 20 mg/dL may lead to falsely low ionized calcium. CL Whole Blood 101 98 - 107 mmol/L [facility] Gluc Whole Bld 98 65 - 199 mg/dL [facility] Comment:Diabetes: >=200 mg/d L plus symptoms Lactate WB 1.3 0.5 - 2.2 mmol/L [facility] Blood Gas Source Venous [facility] Blood Venous Draw / Unknown 06/26/2022 9:01 PM EST 06/26/2022 9:07 PM EST Narrative Resulting Agency Comment Spec In Lab Mayank Kang MD CHEMISTRY ORDERABLES [facility] [place] [address] * EKG 12 Lead (06/26/2022 8:46 PM EST) Ventricular rate 136 BPM MUSE SYSTEM Atrial Rate 136 BPM MUSE SYSTEM P-R Interval 126 ms MUSE SYSTEM QRS Duration 72 ms MUSE SYSTEM Q-T Interval 298 ms MUSE SYSTEM QTC Calculated (Bezet) 448 ms MUSE SYSTEM Calculated P [place] 35 degrees MUSE SYSTEM Calculated R [place] 7 degrees MUSE SYSTEM Calculated T [place] 52 degrees MUSE SYSTEM INTERPRETATION Sinus tachycardia Abnormal ECG Confirmed by Altagracia Palomo ([id number]) on 06/27/2022 3:21:46 PM MUSE SYSTEM 06/26/2022 8:46 PM EST 06/27/2022 3:21 PM EST Mayank Kang MD ECG ORDERABLES MUSE SYSTEM * Differential, Automated (06/26/2022 5:38 AM EST) Neutrophil % 55.3 % [facility] Neutrophil Absolute 2.95 1.70 - 6.10 x10(3)/[facility] Lymph % 34.1 % [facility] Lymphocytes Abs 1.8 0.9 - 3.2 x10(3)/[facility] Monocyte % 8.1 % [facility] Monocyte Abs 0.4 0.3 - 0.9 x10(3)/[facility] Eos % 1.7 % [facility] Eosinophils Abs 0.1 0.0 - 0.4 x10(3)/[facility] Basophil % 0.6 % [facility] Baso Absolute 0.0 0.0 - 0.1 x10(3)/[facility] Immature Gran % 0.20 % [facility] Comment: Immature granulocytes(IG's)percentage and absolute count will include metamyelocytes, myelocytes, and promyelocytes. Blood smears from CBCs yielding IG's will be scanned manually for concordance. If this scan disagrees with the automated IG or if promyelocytes are noted, a manual differential will be performed. Immature Gran Absolute 0.01 0.00 - 0.04 x10(3)/[facility] Blood 06/26/2022 5:38 AM EST 06/26/2022 6:21 AM EST Narrative Resulting Agency Comment Spec In Lab Eddi Vázquez MD HEMATOLOGY ORDERABLE S [facility] [place] [address] * (ABNORMAL) Hemogram (06/26/2022 5:38 AM EST) White Blood Cell 5.3 4.0 - 9.5 x10(3)/mc L [facility] Red Blood Cell 4.30 4.00 - 5.21 x10(6)/mc L [facility] Hemoglobin 10.1(L) 11.7 - 15.5 g/dL [facility] Hematocrit 33.5(L) 35.7 - 45.8 % [facility] Mean Cell Volume 77.9(L) 82.6 - 94.4 fL [facility] Mean Cell Hemoglobin 23.5(L) 27.1 - 32.0 pg [facility] Mean Cell Hemoglobin Concentration 30.1(L) 31.7 - 35.0 g/dL [facility] Platelet 467(H) 145 - 357 x10(3)/mc L [facility] RDW Standard Deviation 50.8(H) 37.0 - 46.0 fL [facility] RDW coefficient of variation 18.1(H) 11.5 - 14.1 % [facility] Mean Platelet Volume 9.4 7.6 - 12.9 fL [facility] NRBC% auto 0.0 % [facility] NRBC Absolute 0.000 0.000 - 0.000 x10(3)/ L [facility] Blood 06/26/2022 5:38 AM EST 06/26/2022 6:21 AM EST Narrative Resulting Agency Comment Spec In Lab Eddi Vázquez MD HEMATOLOGY ORDERABLE S Performing Organization Address City/State/[facility] Co de Phone Number [facility] [place] [address] * (ABNORMAL) Basic Metabolic Panel (non-fasting) (06/26/2022 5:38 AM EST) Glucose 97 65 - 199 mg/dL [facility] Comment:Diabetes: >=200 mg/d L plus symptoms Blood Urea Nitrogen 12 8 - 18 mg/dL [facility] Creatinine 0.28(L) 0.70 - 1.20 mg/dL [facility] Sodium 141 135 - 145 mmol/L [facility] Potassium 4.2 3.5 - 5.0 mmol/L [facility] Comment: Please note: ??Patients with WBC >100,000 may have falsely elevated Potassium levels. ??For accurate Potassium quantification in these patients send serum separator tube (gold top) for subsequent determinations. ??Contact the Clinical Chemistry Laboratory if there are any questions. Chloride 103 98 - 107 mmol/L [facility] Carbon Dioxide 26 22 - 31 mmol/L [facility] Anion Gap 12 5 - 15 mmol/L [facility] Calcium 9.3 8.5 - 10.5 mg/dL [facility] Est Glomerular Filtration Rate 150 >=60 mL/min/1. 73 m?? [facility] Comment: This patient's estimated [...] Vázquez MD CHEMISTRY ORDERABLES Performing Organization Address City/State/[facility] Co de Phone Number [facility] [place] [address] * IR All Drainage Procedures (06/25/2022 4:45 [...] 25 cc. Fluoroscopy time: ?? Please see [facility] IR technologist record for procedural dose/time. [...] ??The tract was dilated, and an 8 [place] drain was advanced over the wire into [...] aspiration demonstrated shiraz pus, and an 8 [place] drain was placed using ultrasound guidance as above. I, the attending Interventional Radiologist performed the entire procedure. ?? Eddi Vázquez MD IMG IR ORDERABLES * Anaerobic Culture (06/25/2022 3:12 PM EST) Anaerobic Culture No anaerobic organisms isolated [facility] Fluid 06/25/2022 3:12 PM EST 06/25/2022 5:21 PM EST Comment:Inferior spinal flui d collection Narrative Resulting Agency Comment Spec In Lab Anurag Call DO MICROBIOLOGY - GENER AL ORDERABLES Performing Organization Address City/[facility]/ZIP Co de Phone Number [facility] [place] [address] * Body Fluid Culture, Aerobic (06/25/2022 3:12 PM EST) Body Fluid Culture No growth [facility] Gram Stain Many Neutrophils seen No microorganisms seen. [facility] Fluid 06/25/2022 3:12 PM EST 06/25/2022 5:21 PM EST Comment:Inferior spinal flui d collection Narrative Resulting Agency Comment Spec In Lab Anurag Call DO MICROBIOLOGY - GENER AL ORDERABLES Performing Organization Address City/[facility] Co de Phone Number [facility] [place] [address] * Anaerobic Culture (06/25/2022 3:11 PM EST) Anaerobic Culture No anaerobic organisms isolated [facility] Fluid 06/25/2022 3:11 PM EST 06/25/2022 5:21 PM EST Comment:Superior spinal flui d collection Narrative Resulting Agency Comment Spec In Lab Anurag Call DO MICROBIOLOGY - GENER AL ORDERABLES Performing Organization Address City/[facility] Co de Phone Number [facility] [place] [address] * Body Fluid Culture, Aerobic (06/25/2022 3:11 PM EST) Body Fluid Culture No growth [facility] Gram Stain Many Neutrophils seen No microorganisms seen. [facility] Fluid 06/25/2022 3:11 PM EST 06/25/2022 5:21 PM EST Comment:Superior spinal flui d collection Narrative Resulting Agency Comment Spec In Lab Anurag Call DO MICROBIOLOGY - GENER AL ORDERABLES Performing Organization Address City/[facility] Co de Phone Number [facility] [place] [address] * Blood culture (06/25/2022 8:55 AM EST) Blood Culture No growth at 5 days. [facility] Blood Pediatric STRUCTURE OF RIGHT HAND / Unknown 06/25/2022 8:55 AM EST 06/25/2022 9:16 AM EST Comment:#2 Narrative Resulting Agency Comment Spec In Lab Eddi Vázquez MD MICROBIOLOGY - BLOOD ORDERABLES Performing Organization Address [facility] Co de Phone Number [facility] [place] [address] * Blood culture (06/25/2022 8:55 AM EST) Blood Culture No growth at 5 days. [facility] Blood Pediatric STRUCTURE OF RIGHT UPPER LIMB / Unknown 06/25/2022 8:55 AM EST 06/25/2022 9:16 AM EST Comment:#1 upper Narrative Resulting Agency Comment Spec In Lab Eddi Vázquez MD MICROBIOLOGY - BLOOD ORDERABLES Performing Organization Address [facility] Co de Phone Number [facility] [place] [address] * Differential, Automated (06/25/2022 2:20 AM EST) Neutrophil % 60.4 % [facility] Neutrophil Absolute 4.34 1.70 - 6.10 x10(3)/[facility] Lymph % 30.3 % [facility] Lymphocytes Abs 2.2 0.9 - 3.2 x10(3)/[facility] Monocyte % 7.2 % [facility] Monocyte Abs 0.5 0.3 - 0.9 x10(3)/[facility] Eos % 1.4 % [facility] Eosinophils Abs 0.1 0.0 - 0.4 x10(3)/[facility] Basophil % 0.6 % [facility] Baso Absolute 0.0 0.0 - 0.1 x10(3)/[facility] Immature Gran % 0.10 % [facility] Comment: Immature granulocytes(IG's)percentage and absolute count will include metamyelocytes, myelocytes, and promyelocytes. Blood smears from CBCs yielding IG's will be scanned manually for concordance. If this scan disagrees with the automated IG or if promyelocytes are noted, a manual differential will be performed. Immature Gran Absolute 0.01 0.00 - 0.04 x10(3)/[facility] Blood 06/25/2022 2:20 AM EST 06/25/2022 2:26 AM EST Narrative Resulting Agency Comment Spec In Lab Eddi Vázquez MD HEMATOLOGY ORDERABLE S Performing Organization Address City/State/[facility] Co de Phone Number [facility] [place] [address] * (ABNORMAL) Hemogram (06/25/2022 2:20 AM EST) White Blood Cell 7.2 4.0 - 9.5 x10(3)/mc L [facility] Red Blood Cell 4.06 4.00 - 5.21 x10(6)/mc L [facility] Hemoglobin 9.8(L) 11.7 - 15.5 g/dL [facility] Hematocrit 30.7(L) 35.7 - 45.8 % [facility] Mean Cell Volume 75.6(L) 82.6 - 94.4 fL [facility] Mean Cell Hemoglobin 24.1(L) 27.1 - 32.0 pg [facility] Mean Cell Hemoglobin Concentration 31.9 31.7 - 35.0 g/dL [facility] Platelet 437(H) 145 - 357 x10(3)/mc L [facility] RDW Standard Deviation 48.7(H) 37.0 - 46.0 fL [facility] RDW coefficient of variation 17.9(H) 11.5 - 14.1 % [facility] Mean Platelet Volume 8.9 7.6 - 12.9 fL [facility] NRBC% auto 0.0 % [facility] NRBC Absolute 0.000 0.000 - 0.000 x10(3)/mc L [facility] Blood 06/25/2022 2:20 AM EST 06/25/2022 2:26 AM EST Narrative Resulting Agency Comment Spec In Lab Eddi Vázquez MD HEMATOLOGY ORDERABLE S [facility] [address] [facility] [place] [address] * (ABNORMAL) Basic Metabolic Panel (non-fasting) (06/25/2022 2:20 AM EST) Glucose 97 65 - 199 mg/dL [facility] Comment:Diabetes: >=200 mg/d L plus symptoms Blood Urea Nitrogen 9 8 - 18 mg/dL [facility] Creatinine 0.30(L) 0.70 - 1.20 mg/dL [facility] Sodium 140 135 - 145 mmol/L [facility] Potassium 4.1 3.5 - 5.0 mmol/L [facility] Comment: Please note: ??Patients with WBC >100,000 may have falsely elevated Potassium levels. ??For accurate Potassium quantification in these patients send serum separator tube (gold top) for subsequent determinations. ??Contact the Clinical Chemistry Laboratory if there are any questions. Chloride 103 98 - 107 mmol/L [facility] Carbon Dioxide 27 22 - 31 mmol/L [facility] Anion Gap 10 5 - 15 mmol/L [facility] Calcium 9.4 8.5 - 10.5 mg/dL [facility] Est Glomerular Filtration Rate 147 >=60 mL/min/1. 73 m?? [facility] Comment: This patient's estimated [...] In Lab Eddi Vázquez MD CHEMISTRY ORDERABLES [facility] [place] [address] * CT Lumbar Spine w Contrast (06/24/2022 [...] questions please contact the health foster care worker that requested your imaging first. [...] have questions please contactthe health foster care worker that requested your imaging first. Annabella Crawford APRN IMG CT ORDERABLES * Differential, Automated (06/24/2022 4:23 PM EST) Neutrophil % 63.2 % [facility] Neutrophil Absolute 4.29 1.70 - 6.10 x10(3)/[facility] Lymph % 29.4 % [facility] Lymphocytes Abs 2.0 0.9 - 3.2 x10(3)/[facility] Monocyte % 4.6 % [facility] Monocyte Abs 0.3 0.3 - 0.9 x10(3)/[facility] Eos % 1.8 % [facility] Eosinophils Abs 0.1 0.0 - 0.4 x10(3)/[facility] Basophil % 0.7 % [facility] Baso Absolute 0.0 0.0 - 0.1 x10(3)/[facility] Immature Gran % 0.30 % [facility] Comment: Immature granulocytes(IG's)percentage and absolute count will include metamyelocytes, myelocytes, and promyelocytes. Blood smears from CBCs yielding IG's will be scanned manually for concordance. If this scan disagrees with the automated IG or if promyelocytes are noted, a manual differential will be performed. Immature Gran Absolute 0.02 0.00 - 0.04 x10(3)/[facility] Blood 06/24/2022 4:23 PM EST 06/24/2022 4:38 PM EST Narrative Resulting Agency Comment Spec In Lab Kvng SIMMS HEMATOLOGY ORDERABL ES Performing Organization Address City/State/[facility] Co de Phone Number [facility] [place] [address] * (ABNORMAL) Hemogram (06/24/2022 4:23 PM EST) White Blood Cell 6.8 4.0 - 9.5 x10(3)/mc L [facility] Red Blood Cell 4.40 4.00 - 5.21 x10(6)/mc L [facility] Hemoglobin 10.5(L) 11.7 - 15.5 g/dL [facility] Hematocrit 33.6(L) 35.7 - 45.8 % [facility] Mean Cell Volume 76.4(L) 82.6 - 94.4 fL [facility] Mean Cell Hemoglobin 23.9(L) 27.1 - 32.0 pg [facility] Mean Cell Hemoglobin Concentration 31.3(L) 31.7 - 35.0 g/dL [facility] Platelet 516(H) 145 - 357 x10(3)/mc L [facility] RDW Standard Deviation 48.5(H) 37.0 - 46.0 fL [facility] RDW coefficient of variation 17.8(H) 11.5 - 14.1 % [facility] Mean Platelet Volume 9.0 7.6 - 12.9 fL [facility] NRBC% auto 0.0 % [facility] NRBC Absolute 0.000 0.000 - 0.000 x10(3)/mc L [facility] Blood 06/24/2022 4:23 PM EST 06/24/2022 4:38 PM EST Narrative Resulting Agency Comment Spec In Lab Kvng SIMMS HEMATOLOGY ORDERABL ES Performing Organization Address [facility] Co de Phone Number [facility] [place] [address] * (ABNORMAL) Sedimentation rate (06/24/2022 4:23 PM EST) Sedimentation Rate Automated >119(H) 2 - 37 mm/hr [facility] Comment: Effective April 06, [...] [facility]/ZIP Co de Phone Number [facility] [place] [address] * (ABNORMAL) CRP, acute inflammation (06/24/2022 4:23 PM EST) C-Reactive Protein 96.9(H) <=4.9 mg/L [facility] Blood 06/24/2022 4:23 PM EST 06/24/2022 4:38 PM EST Narrative Resulting Agency Comment Spec In Lab Gaby Robert MD CHEMISTRY ORDERABLES [facility] [address] [place] [address] * (ABNORMAL) Basic Metabolic Panel (non-fasting) (06/24/2022 4:23 PM EST) Glucose 97 65 - 199 mg/dL [facility] Comment:Diabetes: >=200 mg/d L plus symptoms Blood Urea Nitrogen 9 8 - 18 mg/dL [facility] Creatinine 0.26(L) 0.70 - 1.20 mg/dL [facility] Sodium 143 135 - 145 mmol/L [facility] Potassium 3.9 3.5 - 5.0 mmol/L [facility] Comment: Please note: ??Patients with WBC >100,000 may have falsely elevated Potassium levels. ??For accurate Potassium quantification in these patients send serum separator tube (gold top) for subsequent determinations. ??Contact the Clinical Chemistry Laboratory if there are any questions. Chloride 104 98 - 107 mmol/L [facility] Carbon Dioxide 27 22 - 31 mmol/L [facility] Anion Gap 12 5 - 15 mmol/L [facility] Calcium 10.0 8.5 - 10.5 mg/dL [facility] Est Glomerular Filtration Rate 152 >=60 mL/min/1. 73 m?? [facility] Comment: This patient's estimated [...] In Lab Gaby Robert MD CHEMISTRY ORDERABLES [facility] [place] [address] documented in this encounter Visit Diagnoses Diagnosis [...] AM EST 2 g 33.3 mL/ hr Bag 07/04/2022 2:30 AM EST 2 g 33.3 mL/hr ceFEPime (Maxipime) 2g vial attach to sodium chloride 0.9% 100 mL Mini-Bag Plus 2 g 2 g, Intravenous, EVERY 8 HOURS, First dose on Thu07/04/22 at 1745, Until Discontinued, Administer over 3 Hours, Indication for (Active or Suspected): Bacteremia/Sepsis New 07/06/2022 9:22 AM EDT 2 g 3 3.3 mL/hr New Bag 07/06/2022 3:14 AM EDT 2 g 33.3 mL/hr New 07/05/2022 4:54 PM EST 2 g 33.3 mL/hr cefTRIAXone (Rocephin) 2 g vial attach to sodium chloride 0.9% 50 mL Mini-Bag Plus 2 g, Intravenous, EVERY 24 HOURS, 3 doses, First dose on Thu07/06/22 at 1500, Last dose on Thu07/08/22 at 1500, Administer over 30 Minutes, Indication for (Active or Suspected): Bacteremia/Sepsis New 07/08/2022 3:50 PM EDT 2 g 100 mL/hr New 07/07/2022 2:24 PM EDT 2 g 100 mL/hr 07/06/2022 4:16 PM EDT 2 g 100 [...] dose, Starting on 06/24/22 at 1820, Until 06/24/22 at 1820, Per Protocol, Warning Vesicant/Irritant Medication [...] 500 mL/hr, Intravenous, ONCE, 1 dose, On 06/29/22 at 2030 New Bag 06/29/2022 8:05 PM [...] IV bolus Intravenous, ONCE, 1 dose, On 07/05/22 at 0845 New Bag 07/05/2022 7:59 AM EST lactated Ringers 500 mL IV bolus at 500 mL/hr, Intravenous, ONCE, 1 dose, On Thu07/06/22 at 0730 New Bag 07/06/2022 6:47 AM EDT 500 mL/hr lactated Ringers 500 mL IV bolus Intravenous, ONCE, 1 dose, On Thu07/06/22 at 1345 New Bag 07/06/2022 1:11 PM EDT 500 mL/hr lactated Ringers 500 mL IV bolus at 500 mL/hr, Intravenous, ONCE, 1 dose, On Thu07/07/22 at 0730 New Bag 07/07/2022 6:30 AM EDT 500 mL/hr [...] EST 100 mL/hr 100 mL/ hr New 07/04/2022 3:59 AM EST 75 mL/hr 75 [...] scheduled level. Warning Vesicant/Irritant Medication , Routine 07/04/2022 1:17 AM EST 1,000 mg 250 [...] Until Discontinued 1031 (Given - Provider: Vi oBnds RN)2004 (Given - Provider: Diandra Luo) 0942 [...] Provider: Diandra Luo) 191 (Given - Provider: iV Bonds RN) prochlorperazine (Compazine) (5 mg/mL) injection 5 mg 5 mg, Intravenous, EVERY 6 HOURS PRN, Starting on Thu07/06/22 at 1354, Until Thu07/09/22 at 1229, Nausea, Vomiting, Routine sodium chloride 0.9 % (flush) (BD PosiFlush Normal Saline 0.9) flush 5-20 mL 5-20 mL, Intravenous, EVERY 1 MIN PRN, Starting on Tu06/24/22 at 2318, Until Thu07/09/22 at 1229, flush, [...] as of this encounter Care Teams Dietetic Assistant Relationship Specialty Start Date End Date Lorna Bal APRN [address] [place] [address] PCP - General Family Medicine 05/27/18 documented as of this encounter
--- OUTSIDE RECORDS SUMMARY | 2023-12-29 14:07 | XMS_ITS | Encounter Summary ---
Author Organization [facility] [place] [address] Care Team Providers Care Tire Wrapper Name Role Phone Lorna Bal APRN Primary Care Provider [phone] Encounter Details Date Type Department Care Team (Late st Contact Info) Description 06/19/2022 4:45 PM EST Ancillary Procedure [place] [phone] Joe Harrison MD [facility] [place] [address] Social History Tobacco Use Types Packs/Day Years [...] PM EST Office [place] [address] Hollie Ambriz MD [facility] [place] [address] documented as of this encounter Procedures Procedure Name Priority Date/Time Associated Diagnosis Comments FILM LIBRARY STORAGE ONLY ULTRASOUND STUDY Routine 06/19/2022 4:40 PM EST documented in this encounter Results * Film Library- Storage Only Ultrasound Study (06/19/2022 4:40 PM EST) Narrative [facility] - 06/19/2022 4:40 PM EST This exam is auto-finalizing. It's purpose is for storage only. Joe Harrison MD G FILM LIBRARY ORD ERABLES [place], [place] documented in this encounter Visit Diagnoses Not on filedocumented in this encounter Care Teams Tire Wrapper Relationship Specialty Start Date End Date Lorna Bal APRN [address] [place] [address] PCP - General Family Medicine 05/27/18 documented as of this encounter
--- OUTSIDE RECORDS SUMMARY | 2023-12-29 14:07 | XMS_ITS | Encounter Summary ---
Author Organization [facility] Address [facility] [place] [address] Care Team Providers Care Washer Blanket Name Role Phone Emelyn Easley MD Primary Care Provider [phone] Encounter Details Date Type Department Care Team (Late st Contact Info) Description 01/20/2017 Telephone Orthopaedics at [facility] [place] [phone] Vanda Carter [place] [facility] [place] [address] Social History Tobacco Use Types Packs/Day Years [...] PM EST Office Visit [place] [address] Hollie Ambriz MD [facility] [place] [address] documented as of this encounter Visit Diagnoses Not on filedocumented in this encounter Care Teams Washer Blanket Relationship Specialty Start Date End Date Emelyn Easley MD [address] [place] [address] PCP - General Family Medicine 08/26/16 05/26/18 documented as of this encounter
--- OUTSIDE RECORDS SUMMARY | 2023-12-29 14:07 | XMS_ITS | Encounter Summary ---
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
--- OUTSIDE RECORDS SUMMARY | 2023-12-29 14:07 | XMS_ITS | Encounter Summary ---
Author Organization [facility] Address [facility] [place] [address] Care Team Providers Care Laboratory Miller Name Role Phone Emelyn Easley MD Primary Care Provider [phone] Reason for Visit * Reason Comments Rash * Consultation (Routine) - Closed Specialty Diagnoses / Procedures Referred By Karlo duarte Referred To Contact Dermatology Diagnoses RASH TO UPPER EXTREMITIES EXTENDS TO RIGHT SIDE. Lorna Bal APRN [address] [place] [address] [facility] Dermatology [address] [place] [address] Referral ID Status Reason Start Date Expiration Date V isits Requested Visits Authorized [id number] Closed Consult, Test & Treat Connection Center 09/15/2017 09/15/2018 1 1 Encounter Details Date Type Department Care Team (Late st Contact Info) Description 11/16/2017 9:00 AM EDT Office Visit Dermatology at [facility] [address] [place] [address] Emili Mcdonald MD [facility] DR GURDE[place] [address] Keratosis pilaris (Primary Dx); Multiple [...] a 22 y.o. female referred by Lorna Bla with the following concerns: here w home [...] [Transparent Dressings] Itching and Dermatitis Please use [id number] Review of Systems: - General: Feels well. [...] by Emili Mcdonald MD Resident in Dermatology [facility] Patient seen in conjunction with staff supervisor continuous weld pipe mill: Wally Araya MD Section of Dermatology [facility] Level of Resident Supervision: Direct Supervision (The supervising physician is physically present with the resident and patient). * Wally Araay MD - 11/16/2017 9:00 AM EDT I [...] PM EST Office [place] [address] Hollie Ambriz MD [facility] [place] [address] documented as of this encounter Visit Diagnoses Diagnosis Keratosis pilaris- Primary Other specified congenital anomaly of skin Multiple benign nevi Benign neoplasm of skin, site unspecified documented in this encounter Care Teams Laboratory Miller Relationship Specialty Start Date End Date Emelyn Easley MD [address] [place] [address] PCP - General Family Medicine 08/26/16 05/26/18 documented as of this encounter
--- OUTSIDE RECORDS SUMMARY | 2023-12-29 14:07 | XMS_ITS | Encounter Summary ---
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, SEQUEIA/ACQUIRED DYSPLASIA OF HIP Procedures PRO ANESTH, CAT/MRI SCAN, RADIATN THERAPY BONE SCAN Referral ID Status Reason Start Date Expiration Date Visits Re quested Visits Authorized [id number] 1 1 Encounter Details Date Type Department Care Team (Latest Contact Info) Description 12/30/2016 2:57 PM EDT - 12/30/2016 11:59 PM EDT Hospital En[place] [address] Josse Mckee MD [facility] [place] [address] Discharge Disposition: Home Social History Tobacco Use [...] PM EST Office [place] [address] Hollie Ambriz MD [facility] [place] [address] documented as of this encounter Procedures Procedure [...] filedocumented in this encounter Care Teams Automobile Carpets Molder Relationship Specialty Start Date End Date Emelyn Easley MD [address] [place] [address] PCP - General Family Medicine 08/26/16 05/26/18 documented as of this encounter
--- OUTSIDE RECORDS SUMMARY | 2023-12-29 14:07 | XMS_ITS | Encounter Summary ---
Author Organization [facility] [place] [address] Care Team Providers Care Business Operations Coordinator Name Role Phone Lorna Bal APRN Primary Care Provider [phone] Encounter Details Date Type Department Care Team [...] PM EST Office [place] [address] Hollie Ambriz MD [facility] [place] [address] documented as of this encounter Visit Diagnoses Not on filedocumented in this encounter Care Teams Business Operations Coordinator Relationship Specialty Start Date End Date Lorna Bal APRN [address] [place] [address] PCP - General Family Medicine 05/27/18 documented as of this encounter
--- OUTSIDE RECORDS SUMMARY | 2023-12-29 14:07 | XMS_ITS | Encounter Summary ---
Author Organization [facility] Address [facility] [place] [address] Care Team Providers Care Reconciliation Specialist Name Role Phone Lorna Bal APRN Primary Care Provider [phone] Reason for Visit * Reason Comments Follow-up * Consultation (Routine) - Specialty Diagnoses / Procedures Referred By Karlo duarte Referred To Contact Dermatology Diagnoses Disorder of the skin and subcutaneous tissue, unspecified Lorna Bal APRN [address] [place] [address] [facility] Dermatology [address] [place] [address] Referral ID Status Reason Start Date Expiration Date V isits Requested Visits Authorized [id number] Consult, Test & Treat Connection Center PCP Updated and/or Approved 10/10/2019 10/09/2020 12 12 Encounter Details Date Type Department Care Team (Late st Contact Info) Description 10/31/2019 10:40 AM EDT Office Visit Dermatology at [facility] [address] [place] [address] Deanna Norton MD [facility] DR GURDE[address] [place] [address] [employer] Social History Tobacco Use [...] y.o. female. Established pt here with her emergency care tech Nely. She has a creaseon the left [...] [Transparent Dressings] Itching and Dermatitis Please use [id number] CURRENT MEDICATIONS: Current Outpatient Medications Medication Sig [...] documentation. Deanna Norton MD Section of Dermatology [facility] documented in this encounter Plan of Treatment Upcoming Encounters Date Type Department Care Team (Late st Contact Info) Description 06/02/2024 12:30 PM EST Office Visit [place] [address] Hollie Ambriz MD [facility] [place] [address] documented as of this encounter Visit Diagnoses Diagnosis Intertrigo Other specified erythematous condition documented in this encounter Care Teams Reconciliation Specialist Relationship Specialty Start Date End Date Lorna Bal APRN [address] [place] [address] PCP - General Family Medicine 05/27/18 documented as of this encounter
--- OUTSIDE RECORDS SUMMARY | 2023-12-29 14:07 | XMS_ITS | Encounter Summary ---
Author Organization [facility] [place] [address] Care Team Providers Care Mattress Maker Name Role Phone Emelyn Easley MD Primary Care Provider [phone] Reason for Visit * Reason Onset Date Comments Appointment 02/05/2017 Encounter Details Date Type Department Care Team (Late st Contact Info) Description 02/05/2017 [place] [address] Sarah Shah APRN [facility] [place] [address] Appointment Social History Tobacco Use Types Packs/Day [...] PM EST Office [place] [address] Hollie Ambriz MD [facility] [place] [address] documented as of this encounter Visit Diagnoses Not on filedocumented in this encounter Care Teams Mattress Maker Relationship Specialty Start Date End Date Emelyn Easley MD [address] [place] [address] PCP - General Family Medicine 08/26/16 05/26/18 documented as of this encounter
--- OUTSIDE RECORDS SUMMARY | 2023-12-29 14:07 | XMS_ITS | Encounter Summary ---
Author Organization [facility] Address [facility] [place] [address] Care Team Providers Care Medical Billing Coordinator Name Role Phone Lorna Bal APRN Primary Care Provider [phone] Reason for Visit * Consultation (Routine) - Closed Specialty Diagnoses / Procedures Referred By Contact Referred To Contact Maxillofacial Surgery Diagnoses wisdom teeth extraction no images Yas [address]ner, [place] [address] Keith Cotton MD [facility] ORAL AND [place] [address] Referral ID Status Reason Start Date Expiration Date Visits Re quested Visits Authorized [id number] Closed 03/20/2018 03/20/2019 1 1 Encounter Details Date Type Department Care Team (Late st Contact Info) Description 05/27/2018 11:00 AM EST Office Visit [place] [address] Keith Cotton MD [facility] ORAL [place] [address] Impacted teeth Social History Tobacco Use Types [...] who is referred to us by at [facility] for consultation regarding wisdom teeth dental extractions. [...] [Transparent Dressings] Itching and Dermatitis Please use [id number] ROS with attention to cardiac, pulmonary, hepatic, [...] PM EST Office [place] [address] Hollie Ambriz MD [facility] [place] [address] documented as of this encounter Visit Diagnoses Diagnosis Impacted teeth documented in this encounter Care Teams Medical Billing Coordinator Relationship Specialty Start Date End Date Lorna Bal APRN [address] [place] [address] PCP - General Family Medicine 05/27/18 documented as of this encounter
--- OUTSIDE RECORDS SUMMARY | 2023-12-29 14:08 | XMS_ITS | Encounter Summary ---
Author Organization [facility] [address] Care Team Providers Care Senior Teller Name Role Phone Naina Lindsey MD Primary Care Provider [phone] Encounter Details Date Type Department Care Team (Late st Contact Info) Description 12/29/2014 Orders [place] [address] Mesha Cabral MD [facility] [place] [address] Acquired dysplasia of hip, unspecified laterality; Presence [...] Office [place] [address] Hollie Ambriz MD [facility] [place] [address] documented as of this encounter Visit Diagnoses Diagnosis Acquired dysplasia of hip, unspecified laterality Presence of intrathecal baclofen pump Scoliosis Scoliosis (and kyphoscoliosis), idiopathic Spasticity Abnormal involuntary movements Traumatic brain injury, sequela documented in this encounter Care Teams Senior Teller Relationship Specialty Start Date End Date Naina Lindsey MD [address] [place] [address] [place] [address] PCP - General 03/19/10 08/25/16 documented as of this encounter
--- OUTSIDE RECORDS SUMMARY | 2023-12-29 14:08 | XMS_ITS | Encounter Summary ---
[place] [address] Care Team Providers Care Life Advisor Name Role Phone Emelyn Easley MD Primary Care Provider [phone] Reason for Visit * Reason Onset Date Comments Other 12/19/2016 Encounter Details Date Type Department Care Team (Late st Contact Info) Description 12/19/2016 Telephone [place] [address] Josse Mckee MD [facility] DR ORTHOPAEDIC [place] [address] Other Social History Tobacco Use Types Packs/Day [...] EST Office Visit [place] [address] Hollie Ambriz MD [facility] DR INF[place] [address] documented as of this encounter Visit Diagnoses Not on filedocumented in this encounter Care Teams Life Advisor Relationship Specialty Start Date End Date Emelyn Easley MD [address] [place] [address] PCP - General Family Medicine 08/26/16 05/26/18 documented as of this encounter
--- OUTSIDE RECORDS SUMMARY | 2023-12-29 14:08 | XMS_ITS | Encounter Summary ---
Author Organization [facility] Address [facility] [place] [address] Care Team Providers Care Geospatial Imagery Intelligence Analyst Name Role Phone Naina Lindsey MD Primary Care Provider [phone] Reason for Visit * Reason Onset Date Comments Appointment 08/02/2015 Encounter Details Date Type Department Care Team (Late st Contact Info) Description 08/02/2015 Telephone [place] [address] Mesha Cabral MD [facility] [place] [address] Appointment Social History Tobacco Use Types Packs/Day [...] PM EST Office [place] [address] Hollie Ambriz MD [facility] [place] [address] documented as of this encounter Visit Diagnoses Not on filedocumented in this encounter Care Teams Geospatial Imagery Intelligence Analyst Relationship Specialty Start Date End Date Naina Lindsey MD [address] [place] [address] PCP - General 03/19/10 08/25/16 documented as of this encounter
--- OUTSIDE RECORDS SUMMARY | 2023-12-29 14:08 | XMS_ITS | Encounter Summary ---
[place] [address] Care Team Providers Care Insulation Blanket Maker Name Role Phone Emelyn Easley MD Primary Care Provider [phone] Reason for Visit * Diagnostic Test (Routine) - Closed Specialty Diagnoses / Procedures Referred By Contac t Referred To Contact Radiology Diagnoses Traumatic brain injury, without LOC, sequela Acquired dysplasia of hip, unspecified laterality Spasticity Neuromuscular scoliosis of lumbar region Procedures NM Whole Body Bone Scan Vanda Carter PA [facility] [place] [address] [place] [address] Referral ID Status Reason Start Date Expiration Date V isits Requested Visits Authorized [id number] Closed Specialty Service Requested 11/24/2016 11/24/2017 1 1 Encounter Details Date Type Department Care Team (Latest Contact Info) Description 12/10/2016 2:00 PM EDT - 12/10/2016 11:59 PM EDT Hospital Encounter [place] [address] Josse Mckee MD [facility] [place] [address] Discharge Disposition: Home Social History [...] PM EST Office [place] [address] Hollei Ambriz MD [facility] [place] [address] documented as of this encounter Procedures Procedure [...] mg documented in this encounter Care Teams Insulation Blanket Maker Relationship Specialty Start Date End Date Emelyn Easley MD [address] [place] [address] PCP - General Family Medicine 08/26/16 05/26/18 documented as of this encounter
--- OUTSIDE RECORDS SUMMARY | 2023-12-29 14:08 | XMS_ITS | Encounter Summary ---
Author Organization [facility] Address [facility] [place] [address] Care Team Providers Care Heavy Equipment Service Manager Name Role Phone Naina Lindsey MD Primary Care Provider [phone] Encounter Details Date Type Department Care Team (Latest Contact Info) Description 11/09/2014 11:01 AM EDT - 11/09/2014 11:59 PM EDT Hospital Encounter XRay at [address] [place] [address] Acquired dysplasia of hip, unspecified laterality; Traumatic [...] PM EST Office [place] [address] Hollie Ambriz MD [facility] DR [place] [address] documented as of this encounter Procedures Procedure [...] limb documented in this encounter Care Teams Heavy Equipment Service Manager Relationship Specialty Start Date End Date Naina Lindsey MD [address] [place] [address] PCP - General 03/19/10 08/25/16 documented as of this encounter
--- OUTSIDE RECORDS SUMMARY | 2023-12-29 14:08 | XMS_ITS | Encounter Summary ---
[place] [address] Care Team Providers Care Api Product Manager Name Role Phone Emelyn Easley MD Primary Care Provider [phone] Reason for Visit * Reason Onset Date Comments Appointment 12/10/2016 Encounter Details Date Type Department Care Team (Late st Contact Info) Description 12/10/2016 Tele[place] [address] Josse Mckee MD [address] [place] [address] Appointment Social History Tobacco Use Types Packs/Day [...] PM EST Office [place] [address] Hollie Ambriz MD [facility] [place] [address] documented as of this encounter Visit Diagnoses Diagnosis Acquired dysplasia of hip, unspecified laterality Neuromuscular scoliosis of lumbar region Other kyphoscoliosis and scoliosis Traumatic brain injury, without LOC, sequela documented in this encounter Care Teams Api Product Manager Relationship Specialty Start Date End Date Emelyn Easley MD [address] [place] [address] PCP - General Family Medicine 08/26/16 05/26/18 documented as of this encounter
--- OUTSIDE RECORDS SUMMARY | 2023-12-29 14:08 | XMS_ITS | Encounter Summary ---
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, SEQUEIA/ACQUIRED DYSPLASIA OF HIP Procedures PRO ANESTH, CAT/MRI SCAN, RADIATN THERAPY BONE SCAN Referral ID Status Reason Start Date Expiration Date Visits Re quested Visits Authorized [id number] 1 1 Encounter Details Date Type Department Care Team (Latest Contact Info) Description 12/30/2016 10:57 AM EDT - 12/30/2016 4:52 PM EDT Hospital Encounter Same Day Program at [facility] [place] [address] Janna Strickland [place] [address] Discharge Disposition: Home Social History Tobacco Use [...] 11:40; without success they called for another senior etl developer. 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
--- OUTSIDE RECORDS SUMMARY | 2023-12-29 14:08 | XMS_ITS | Encounter Summary ---
Author Organization [facility] [place] [address] Care Team Providers Care Control Systems Engineer Name Role Phone Naina Lindsey MD Primary Care Provider [phone] Encounter Details Date Type Department Care Team (Late st Contact Info) Description 06/19/2014 External Results [place] [address] Donnell Dotson MD [facility] [place], [place] [id number] Social History Tobacco Use Types Packs/Day Years [...] PM EST Office [place] [address] Hollie Ambriz MD [facility] DR [place] [address] documented as of this encounter Procedures Procedure Name Priority Date/Time Associated Diagnosis Comments IMPLANTABLE DEVICES SCAN Routine 05/03/2014 3:51 PM EST documented in this encounter Visit Diagnoses Not on filedocumented in this encounter Care Teams Control Systems Engineer Relationship Specialty Start Date End Date Naina Lindsey MD [address] [place] [address] PCP - General 03/19/10 08/25/16 documented as of this encounter
--- OUTSIDE RECORDS SUMMARY | 2023-12-29 14:08 | XMS_ITS | Encounter Summary ---
Author Organization [facility] [place] [address] Care Team Providers Care Air Sampling And Monitoring Name Role Phone Naina Lindsey MD Primary Care Provider [phone] Reason for Visit * Reason Onset Date Comments Bumped Appointment 09/29/2014 Encounter Details Date Type Department Care Team (Late st Contact Info) Description 09/29/2014 [place] [address] Mesha Cabral MD [facility] [place] [address] Bumped Appointment Social History Tobacco Use Types [...] PM EST Office [place] [address] Hollie Ambriz MD [facility] [place] [address] documented as of this encounter Visit Diagnoses Not on filedocumented in this encounter Care Teams Air Sampling And Monitoring Relationship Specialty Start Date End Date N[place] [address] PCP - General 03/19/10 08/25/16 documented as of this encounter
--- OUTSIDE RECORDS SUMMARY | 2023-12-29 14:08 | XMS_ITS | Encounter Summary ---
Author Organization [facility] [place] [address] Care Team Providers Care Cable Television Program Director Name Role Phone Naina Lindsey MD Primary Care Provider Reason for Visit * Reason Onset Date Comments Appointment 10/12/2014 Encounter Details Date Type Department Care Team (Late st Contact Info) Description 10/12/2014 Telephone [place] [address] Mesha Cabral MD [facility] [place] [address] Appointment Social History Tobacco Use Types Packs/Day [...] Office [place] [address] Hollie Ambriz MD [facility] [place] [address] documented as of this encounter Visit Diagnoses Not on filedocumented in this encounter Care Teams Cable Television Program Director Relationship Specialty Start Date End Date Naina Lindsey MD [address] [place] [address] [place] [address] PCP - General 03/19/10 08/25/16 documented as of this encounter
--- OUTSIDE RECORDS SUMMARY | 2023-12-29 14:08 | XMS_ITS | Encounter Summary ---
Author Organization [facility] [place] [address] Care Team Providers Care Associate Professor Of Theology Name Role Phone Naina Lindsey MD Primary Care Provider [phone] Encounter Details Date Type Department Care Team (Late st Contact Info) Description 11/09/2014 Orders [place] [address] Mesha Cabral MD [facility] [place] [address] Scoliosis Social History Tobacco Use Types Packs/Day [...] PM EST Office [place] [address] Hollie Ambriz MD [facility] [place] [address] documented as of this encounter Visit Diagnoses Diagnosis Scoliosis Scoliosis (and kyphoscoliosis), idiopathic documented in this encounter Care Teams Associate Professor Of Theology Relationship Specialty Start Date End Date Naina Lindsey MD [address] [place] [address] [place] [address] PCP - General 03/19/10 08/25/16 documented as of this encounter
--- OUTSIDE RECORDS SUMMARY | 2023-12-29 14:08 | XMS_ITS | Encounter Summary ---
Author Organization [facility] Address [facility] [place] [address] Care Team Providers Care Dry Room Attendant Name Role Phone Naina Lindsey MD Primary Care Provider [phone] Reason for Visit * Reason Comments Scoliosis Encounter Details Date Type Department Care Team (Late st Contact Info) Description 12/29/2014 9:00 AM EDT Office [place] [address] Ty Vogel MD [facility] [place] [address] Scoliosis Discharge Disposition: Home Social History Tobacco [...] past history with care received both at [facility] and in [place]. PAST MEDICAL HISTORY: For full history, please [...] PM EST Office [place] [address] Hollie Ambriz MD [facility] [place] [address] documented as of this encounter Visit Diagnoses Diagnosis Scoliosis Scoliosis (and kyphoscoliosis), idiopathic documented in this encounter Care Teams Dry Room Attendant Relationship Specialty Start Date End Date Naina Lindsey MD [address] [place] [address] [place] [address] PCP - General 03/19/10 08/25/16 documented as of this encounter
--- OUTSIDE RECORDS SUMMARY | 2023-12-29 14:08 | XMS_ITS | Encounter Summary ---
Author Organization [facility] [place] [address] Care Team Providers Care Computer Network Specialist Name Role Phone Naina Lindsey MD Primary Care Provider [phone] Reason for Visit * Reason Comments Follow-up HCK / REMOVE DEE Hayes Encounter Details Date Type Department Care Team (Latest Contact Info) Description 06/08/2014 4:30 PM EST Office [place] [address] Alek Sinha, PRESS OPERATOR HELPER [facility] [place] [address] Spasticity; Postoperative wound infection, subsequent encounter Discharge [...] this encounter Progress Notes * Alek Sinha, PRESS OPERATOR HELPER - 06/23/2014 3:02 PM EST Florin Cavazos was seen today in the pediatric neurosurgery clinic for a post-op follow up visit. Tana is a 18 year old girl with a history of increased tone which was managed with intrathecal baclofen. She underwent placement of an intrathecal baclofen pump in 2007 at the [facility]. Mother feels that the pump [...] PM EST Office [place] [address] Hollie Ambriz MD [facility] [place] [address] documented as of this encounter Visit Diagnoses Diagnosis Spasticity Abnormal involuntary movements Postoperative wound infection, subsequent encounter documented in this encounter Care Teams Computer Network Specialist Relationship Specialty Start Date End Date Naina Lindsey MD [address] [place] [address] PCP - General 03/19/10 08/25/16 documented as of this encounter
--- OUTSIDE RECORDS SUMMARY | 2023-12-29 14:08 | XMS_ITS | Encounter Summary ---
Author Organization [facility] Address [facility] [place] [address] Care Team Providers Care Risk Lead Name Role Phone Naina Lindsey MD Primary Care Provider [phone] Reason for Referral * Consultation (Routine) - Closed Specialty Diagnoses / Procedures Referred By Contac t Referred To Contact Orthotics Diagnoses Traumatic brain injury, sequela Spasticity Scoliosis Mesha Cabral MD [facility] [place] [address] Referral ID Status Reason Start Date Expiration Date V isits Requested Visits Authorized [id number] Closed Consult, Test & Treat 11/09/2014 05/08/2015 3 3 Reason for Visit * Reason Comments Follow-up [place] Encounter Details Date Type Department Care Team (Late st Contact Info) Description 11/09/2014 10:00 AM EDT Office Visit [place] [address] Mesha Cabral MD [facility] [place] [address] Acquired dysplasia of hip, unspecified laterality; Traumatic [...] when her orthopedic care was received at [facility], I do not have those notes available [...] alignment where she had previously used a [place] type TLSO scoliosis brace, it does not [...] skin currently. Upper extremity exam reveals bilateral [id number] contractures of the shoulders, elbows, and wrists, [...] would have to be a referral to [facility] as I am no longer [...] PM EST Office Visit [place] [address] Hollie Ambriz MD [facility] [place] [address] Scheduled Referrals Name Type Priority Associated Diagnoses [...] limb documented in this encounter Care Teams Risk Lead Relationship Specialty Start Date End Date Naina Lindsey MD [address] [place] [address] PCP - General 03/19/10 08/25/16 documented as of this encounter
--- OUTSIDE RECORDS SUMMARY | 2023-12-29 14:08 | XMS_ITS | Encounter Summary ---
[place] [address] Care Team Providers Care Wood Patternmaker Apprentice Name Role Phone Naina Lindsey MD Primary Care Provider [phone] Reason for Visit * Reason Onset Date Comments Referral 09/13/2014 Encounter Details Date Type Department Care Team (Late st Contact Info) Description 09/13/2014 Telephone [place] [address] Emelyn Perez Referral Social History Tobacco Use [...] from referral: [facility] On a in [facility]. documented in this encounter Plan of Treatment Upcoming Encounters Date Type Department Care Team (Late st Contact Info) Description 06/02/2024 12:30 PM EST Office Visit [place] [address] Hollie Ambriz MD [facility] [place] [address] documented as of this encounter Visit Diagnoses Not on filedocumented in this encounter Care Teams Wood Patternmaker Apprentice Relationship Specialty Start Date End Date Naina Lindsey MD [address] [place] [address] [place] [address] PCP - General 03/19/10 08/25/16 documented as of this encounter
--- OUTSIDE RECORDS SUMMARY | 2023-12-29 14:08 | XMS_ITS | Encounter Summary ---
Author Organization [facility] [place] [address] Care Team Providers Care Market Director Name Role Phone Naina Lindsey MD Primary Care Provider [phone] Encounter Details Date Type Department Care Team (Late st Contact Info) Description 11/09/2014 Orders [place] [address] Mesha Cabral MD [facility] [place] [address] Scoliosis Social History Tobacco Use Types Packs/Day [...] PM EST Office [place] [address] Hollie Ambriz MD [facility] [place] [address] documented as of this encounter Results * [...] idiopathic documented in this encounter Care Teams Market Director Relationship Specialty Start Date End Date Naina Lindsey MD [address] [place] [address] PCP - General 03/19/10 08/25/16 documented as of this encounter
--- OUTSIDE RECORDS SUMMARY | 2023-12-29 14:08 | XMS_ITS | Encounter Summary ---
Author Organization [facility] Address [facility] [place] [address] Care Team Providers Care Channel Cementer Insole Machine Name Role Phone Naina Lindsey MD Primary Care Provider [phone] Encounter Details Date Type Department Care Team (Latest Contact Info) Description 07/31/2015 11:19 AM EDT - 07/31/2015 11:59 PM EDT Hospital Encounter XRay at [address] [place] [address] Mesha Cabral MD [facility] [place] [address] Neuromuscular scoliosis of lumbar region; Traumatic brain [...] PM EST Office Visit [place] [address] Hollie Ambriz MD [facility] [place] [address] documented as of this encounter Procedures Procedure [...] Progression of remodeling and sclerosis about the upper mattaponi acetabulum and proximal right femoral fragment status [...] Progression of irregularity and remodeling about the upper mattaponi acetabulum. The femur remains gracile in nature. [...] Progression of irregularity and remodeling about the upper mattaponi acetabulum. The femurremains gracile in nature. Absent femoral head. IMPRESSION IMPRESSION: Progression of remodeling and sclerosis about the upper mattaponi acetabulum andproximal right femoral fragment status post [...] encounter documented in this encounter Care Teams Channel Cementer Insole Machine Relationship Specialty Start Date End Date Naina Lindsey MD [address] [place] [address] PCP - General 03/19/10 08/25/16 documented as of this encounter
--- OUTSIDE RECORDS SUMMARY | 2023-12-29 14:08 | XMS_ITS | Encounter Summary ---
Author Organization [facility] Address [facility] [place] [address] Care Team Providers Care Carton Marker Machine Name Role Phone Naina Lindsey MD Primary Care Provider [phone] Encounter Details Date Type Department Care Team (Latest Contact Info) Description 11/09/2014 11:01 AM EDT - 11/09/2014 11:59 PM EDT Hospital Encounter XRay at [address] [place] [address] Acquired dysplasia of hip, unspecified laterality; Traumatic [...] PM EST Office Visit [place] [address] Hollie Ambriz MD [facility] [place] [address] documented as of this encounter Procedures Procedure [...] limb documented in this encounter Care Teams Carton Marker Machine Relationship Specialty Start Date End Date Naina Lindsey MD [address] [address] PCP - General 03/19/10 08/25/16 documented as of this encounter
--- OUTSIDE RECORDS SUMMARY | 2023-12-29 14:08 | XMS_ITS | Encounter Summary ---
Author Organization [facility] [place] [address] Care Team Providers Care Adobe Layer Helper Name Role Phone Emelyn Easley MD Primary Care Provider [phone] Reason for Referral * Diagnostic Test (Routine) - Closed Specialty Diagnoses / Procedures Referred By Contac t Referred To Contact Radiology Diagnoses Traumatic brain injury, without LOC, sequela Acquired dysplasia of hip, unspecified laterality Procedures NM Whole Body Bone Scan Vanda Carter, [place] [address] [facility] [place] [address] Referral ID Status Reason Start Date Expiration Date V isits Requested Visits Authorized [id number] Closed Specialty Service Requested 12/16/2016 12/16/2017 2 2 Reason for Visit * Auth/Cert Specialty Diagnoses / Procedures Referred By Contac t Referred To Contact Diagnoses TBI, W/O LOC, SEQUEIA/ACQUIRED DYSPLASIA OF HIP Procedures PRO ANESTH, CAT/MRI SCAN, RADIATN THERAPY BONE SCAN Referral ID Status Reason Start Date Expiration Date Visits Re quested Visits Authorized [id number] 1 1 Encounter Details Date Type Department Care Team (Latest Contact Info) Description 12/30/2016 12:00 PM EDT - 12/30/2016 2:56 PM EDT Hospital En[place] [address] Josse Mckee MD [facility] [place] [address] Traumatic brain injury, without LOC, sequela; Acquired [...] PM EST Office [place] [address] Hollie Ambriz MD [facility] [place] [address] documented as of this encounter Procedures Procedure [...] mCi documented in this encounter Care Teams Adobe Layer Helper Relationship Specialty Start Date End Date Emelyn Easley MD [address] [place] [address] PCP - General Family Medicine 08/26/16 05/26/18 documented as of this encounter
--- OUTSIDE RECORDS SUMMARY | 2023-12-29 14:08 | XMS_ITS | Encounter Summary ---
[place] [address] Care Team Providers Care Statement Clerks Supervisor Name Role Phone Naina Lindsey MD Primary Care Provider [phone] Encounter Details Date Type Department Care Team (Late st Contact Info) Description 01/04/2015 [place] [address] Camille Griffin RN Social History Tobacco Use [...] equipment services. They do not have a [place] provider licence so they will not be able to help with the wheelchair. Spoke with mom and she does not want to go through [employer] again. Will discuss with the team to see if there are other options in [place] for the wheelchair. documented in this encounter Plan of Treatment Upcoming Encounters Date Type Department Care Team (Late st Contact Info) Description 06/02/2024 12:30 PM EST Office [place] [address] Hollie Ambriz MD [facility] [address] INFECTIOUS [place] [address] documented as of this encounter Visit Diagnoses Not on filedocumented in this encounter Care Teams Statement Clerks Supervisor Relationship Specialty Start Date End Date Naina Lindsey MD [address] [place] [address] PCP - General 03/19/10 08/25/16 documented as of this encounter
--- OUTSIDE RECORDS SUMMARY | 2023-12-29 14:08 | XMS_ITS | Encounter Summary ---
Author Organization [facility] Address [facility] [place] [address] Care Team Providers Care Bark Press Operator Name Role Phone Emelyn Easley MD Primary Care Provider [phone] Reason for Referral * Physical Therapy (Routine) - Closed Specialty Diagnoses / Procedures Referred By Contac t Referred To Contact Diagnoses Traumatic brain injury, without LOC, sequela Acquired dysplasia of hip, unspecified laterality Spasticity Neuromuscular scoliosis of lumbar region Vanda Carter PA [facility] [place] [address] Unknown None Referral ID Status Reason Start Date Expiration Date V isits Requested Visits Authorized [id number] Closed Evaluate and Treat 11/24/2016 05/23/2017 12 12 * Diagnostic Test (Routine) - Closed Specialty Diagnoses / Procedures Referred By Contac t Referred To Contact Radiology Diagnoses Traumatic brain injury, without LOC, sequela Acquired dysplasia of hip, unspecified laterality Spasticity Neuromuscular scoliosis of lumbar region Procedures NM Whole Body Bone Scan Vanda Carter PA [facility] [place] [address] [place] [address] Referral ID Status Reason Start Date Expiration Date V isits Requested Visits Authorized [id number] Closed Specialty Service Requested 11/24/2016 11/24/2017 1 1 Reason for Visit * Consultation (Routine) - Closed Specialty Diagnoses / Procedures Referred By Contac t Referred To Contact Orthopaedics Diagnoses leg pain,chronic, right Emelyn Easley MD [address] [place] [address] [facility] [address] [place] [phone] Referral ID Status Reason Start Date Expiration Date V isits Requested Visits Authorized [id number] Closed Consult, Test & Treat [facility] 08/26/2016 08/26/2017 1 1 Encounter Details Date Type Department Care Team (Late st Contact Info) Description 11/24/2016 1:00 PM EDT Office [place] [address] Josse Mckee MD [facility] [place] [address] Traumatic brain injury, without LOC, sequela; Acquired [...] NAME: Tana Cavazos AGE: 21 y.o.. MR#: [id number] ? DATE OF VISIT: 11/24/2016 ? STAFF: [...] [place] [address] Hollie Ambriz MD [facility] [place] [address] Scheduled Referrals Name Type Priority Associated Diagnoses [...] pelvis cannot be evaluated. Josse Mckee MD [facility] [place] ORDERABLES documented in this encounter Visit [...] scoliosis documented in this encounter Care Teams Bark Press Operator Relationship Specialty Start Date End Date Emelyn Easley MD [address] [place] [address] PCP - General Family Medicine 08/26/16 05/26/18 documented as of this encounter
--- OUTSIDE RECORDS SUMMARY | 2023-12-29 14:08 | XMS_ITS | Encounter Summary ---
[place] [address] Care Team Providers Care Oracle Application Architect Name Role Phone Emelyn Easley MD Primary Care Provider [phone] Reason for Referral * Diagnostic Test (Routine) - Closed Specialty Diagnoses / Procedures Referred By Contac t Referred To Contact Radiology Diagnoses Traumatic brain injury, without LOC, sequela Acquired dysplasia of hip, unspecified laterality Spasticity Neuromuscular scoliosis of lumbar region Procedures NM Whole Body Bone Scan Vanda Carter PA [facility] [place] [address] [place] [address] Referral ID Status Reason Start Date Expiration Date V isits Requested Visits Authorized [id number] Closed Specialty Service Requested 11/24/2016 11/24/2017 1 1 Reason for Visit * Diagnostic Test (Routine) - Closed Specialty Diagnoses / Procedures Referred By Contac t Referred To Contact Radiology Diagnoses Traumatic brain injury, without LOC, sequela Acquired dysplasia of hip, unspecified laterality Spasticity Neuromuscular scoliosis of lumbar region Procedures NM Whole Body Bone Scan Vanda Carter PA [facility] [place] [address] [facility] [place] [address] Referral ID Status Reason Start Date Expiration Date V isits Requested Visits Authorized [id number] Closed Specialty Service Requested 11/24/2016 11/24/2017 1 1 Encounter Details Date Type Department Care Team (Latest Contact Info) Description 12/10/2016 10:57 AM EDT - 12/10/2016 1:59 PM EDT Hospital Encounter [place] [address] Josse Mckee MD [facility] [place] [address] Traumatic brain injury, without LOC, [...] PM EST Office [place] [address] Hollie Ambriz MD [facility] [place] [address] documented as of this encounter Procedures Procedure [...] mCi documented in this encounter Care Teams Oracle Application Architect Relationship Specialty Start Date End Date Emelyn Easley MD [address] [place] [address] PCP - General Family Medicine 08/26/16 05/26/18 documented as of this encounter
--- OUTSIDE RECORDS SUMMARY | 2023-12-29 14:08 | XMS_ITS | Encounter Summary ---
Author Organization [facility] [place] [address] Care Team Providers Care Reading Instructor Name Role Phone Emelyn Easley MD Primary Care Provider [phone] Encounter Details Date Type Department Care Team (Late st Contact Info) Description 11/17/2016 Orders [place] [address] Josse Mckee MD [facility] [place] [address] Neuromuscular scoliosis of lumbar region; Acquired dysplasia [...] PM EST Office [place] [address] Hollie Ambriz MD [facility] INFECTIOUS [place] [address] documented as of this encounter Results * [...] laterality documented in this encounter Care Teams Reading Instructor Relationship Specialty Start Date End Date Emelyn Easley MD [address] [place] [address] PCP - General Family Medicine 08/26/16 05/26/18 documented as of this encounter
--- OUTSIDE RECORDS SUMMARY | 2023-12-29 14:08 | XMS_ITS | Encounter Summary ---
Author Organization [facility] Address [facility] [place] [address] Care Team Providers Care Eclectic Doctor Name Role Phone Naina Lindsey MD Primary Care Provider [phone] Encounter Details Date Type Department Care Team (Late st Contact Info) Description 11/09/2014 9:31 AM EDT - 11/09/2014 11:00 AM EDT Hospital Encounter XRay at [address] [place] [address] Scoliosis Social History Tobacco Use Types Packs/Day [...] PM EST Office [place] [address] Hollie Ambriz MD [facility] [place] [address] documented as of this encounter Procedures Procedure [...] idiopathic documented in this encounter Care Teams Eclectic Doctor Relationship Specialty Start Date End Date Naina Lindsey MD [address] [place] [address] PCP - General 03/19/10 08/25/16 documented as of this encounter
--- OUTSIDE RECORDS SUMMARY | 2023-12-29 14:08 | XMS_ITS | Encounter Summary ---
Author Organization [facility] Address [facility] [place] [address] Care Team Providers Care Oxidized Finish Plater Name Role Phone Emelyn Easley MD Primary Care Provider [phone] Encounter Details Date Type Department Care Team (Latest Contact Info) Description 11/24/2016 12:04 PM EDT - 11/24/2016 11:59 PM EDT Hospital Encounter XRay at [address] [place] [address] Josse Mckee MD [facility] [place] [address] Acquired dysplasia of hip, unspecified laterality Discharge [...] PM EST Office [place] [address] Hollie Ambriz MD [facility] [place] [address] documented as of this encounter Procedures Procedure [...] laterality documented in this encounter Care Teams Oxidized Finish Plater Relationship Specialty Start Date End Date Emelyn Easley MD [address] [place] [address] PCP - General Family Medicine 08/26/16 05/26/18 documented as of this encounter
--- OUTSIDE RECORDS SUMMARY | 2023-12-29 14:08 | XMS_ITS | Encounter Summary ---
Author Organization [facility] Address [facility] [place] [address] Care Team Providers Care Repatcher Name Role Phone Naina Lindsey MD Primary Care Provider [phone] Encounter Details Date Type Department Care Team (Latest Contact Info) Description 07/31/2015 11:18 AM EDT Hospital Encounter XRay at [address] [place] [address] Mesha Cabral MD [facility] [place] [address] Neuromuscular scoliosis of lumbar region; Traumatic brain [...] PM EST Office Visit [place] [address] Hollie Ambriz MD [facility] [place] [address] documented as of this encounter Procedures Procedure [...] sequela documented in this encounter Care Teams Repatcher Relationship Specialty Start Date End Date Naina Lindsey MD [address] [place] [address] PCP - General 03/19/10 08/25/16 documented as of this encounter
--- OUTSIDE RECORDS SUMMARY | 2023-12-29 14:08 | XMS_ITS | Encounter Summary ---
Author Organization [facility] [place] [address] Care Team Providers Care Cloth Measurer Machine Name Role Phone Naina Lindsey MD Primary Care Provider [phone] Reason for Referral * Consultation (Routine) - Specialty Diagnoses / Procedures Referred By Contac t Referred To Contact Physical Medicine and Rehab Diagnoses Acquired dysplasia of hip, unspecified laterality Traumatic brain injury, without LOC, sequela Ty Woods MD [facility] [place] [address] Alek Loaiza MD [address] [place] [address] [address] [place] [address] Referral ID Status Reason Start Date Expiration Date V isits Requested Visits Authorized [id number] Consult, Test & Treat 07/29/2016 01/25/2017 1 1 Encounter Details Date Type Department Care Team (Late st Contact Info) Description 07/29/2016 Orders [place] [address] Ty Woods MD [facility] [place] [address] Acquired dysplasia of hip, unspecified laterality; Traumatic [...] PM EST Office [place] [address] Hollie Ambriz MD [facility] [place] [address] Scheduled Referrals Name Type Priority Associated Diagnoses Orde r Schedule Referral to Orthopaedics Outpatient Referral Routine Acquired dysplasia of hip, unspecified laterality Traumatic Brain Injury, Without Loc, Sequela Ordered: 07/29/2016 documented as of this encounter Visit Diagnoses Diagnosis Acquired dysplasia of hip, unspecified laterality Traumatic brain injury, without LOC, sequela documented in this encounter Care Teams Cloth Measurer Machine Relationship Specialty Start Date End Date Naina Lindsey MD [address] [place] [address] PCP - General 03/19/10 08/25/16 documented as of this encounter
--- OUTSIDE RECORDS SUMMARY | 2023-12-29 14:08 | XMS_ITS | Encounter Summary ---
Author Organization [facility] [place] [address] Care Team Providers Care Oven Heater Helper Name Role Phone Naina Lindsey MD Primary Care Provider [phone] Reason for Referral * Consultation (Routine) - Closed Specialty Diagnoses / Procedures Referred By Contac t Referred To Contact Neurology Diagnoses Traumatic brain injury, without loss of consciousness, sequela Spasticity Contracture of elbow, left Mesha Cabral MD [facility] [place] [address] Myah Abdi, [facility] [place] [address] Referral ID Status Reason Start Date Expiration Date V isits Requested Visits Authorized [id number] Closed Consult, Test & Treat 07/31/2015 07/30/2016 1 1 * Consultation (Routine) - Closed Specialty Diagnoses / Procedures Referred By Contac t Referred To Contact Diagnoses Traumatic brain injury, without loss of consciousness, sequela Spasticity Contracture of elbow, left Mesha Cabral MD [facility] [place] [address] Unknown None Referral ID Status Reason Start Date Expiration Date V isits Requested Visits Authorized [id number] Closed Consult, Test & Treat 07/31/2015 01/27/2016 1 1 Reason for Visit * Reason Comments Right Leg Pain Delayed Development Childhood Encounter Details Date Type Department Care Team (Late st Contact Info) Description 07/31/2015 11:00 AM EDT Office [place] [address] Mesha Cabral MD [facility] [place] [address] Neuromuscular scoliosis of lumbar region; Traumatic brain [...] documented in this encounter Progress Notes * Mesah Cabral MD - 07/31/2015 1:18 PM EDT This is a followup for this established patient of [employer]. She is 20 years old and has an underlying diagnosis of spastic quadriplegic cerebral palsy. She is accompanied by her mother and meat and poultry inspector. Recently it has been noted that she [...] advised Mother that I will be leaving [facility] at the end of September of [...] needs. Provider: Mesha Cabral MD [place] [address] documented in this encounter Plan of Treatment Upcoming Encounters Date Type Department Care Team (Late st Contact Info) Description 06/02/2024 12:30 PM EST Office [place] [address] Hollie Ambriz MD [facility] [place] [address] Scheduled Referrals Name Type Priority Associated Diagnoses [...] Progression of remodeling and sclerosis about the qawalangin acetabulum and proximal right femoral fragment status [...] Progression of irregularity and remodeling about the [place] acetabulum. The femur remains gracile in nature. [...] Progression of irregularity and remodeling about the [place] acetabulum. The femurremains gracile in nature. Absent femoral head. IMPRESSION IMPRESSION: Progression of remodeling and sclerosis about the q[place] acetabulum andproximal right femoral fragment status post [...] documented in this encounter Care Teams Oven Heater Helper Relationship Specialty Start Date End Date Naina Lindsey MD [address] [place] [address] PCP - General 03/19/10 08/25/16 documented as of this encounter
--- OUTSIDE RECORDS SUMMARY | 2023-12-29 14:08 | XMS_ITS | Encounter Summary ---
Author Organization [facility] Address [facility] [place] [address] Care Team Providers Care Housing Director Name Role Phone Emelyn Easley MD Primary Care Provider [phone] Encounter Details Date Type Department Care Team (Latest Contact Info) Description 11/24/2016 12:03 PM EDT Hospital Encounter XRay at [address] [place] [address] Josse Mckee MD [facility] [place] [address] Neuromuscular scoliosis of lumbar region Discharge Disposition: [...] PM EST Office Visit Infectious Disease at [facility] [place] [address] Hollie Ambriz MD [facility] [place] [address] documented as of this encounter Procedures Procedure [...] scoliosis documented in this encounter Care Teams Housing Director Relationship Specialty Start Date End Date Emelyn Easley MD [address] [place] [address] PCP - General Family Medicine 08/26/16 05/26/18 documented as of this encounter
--- OUTSIDE RECORDS SUMMARY | 2023-12-29 14:08 | XMS_ITS | Encounter Summary ---
Author Organization [facility] [place] [address] Care Team Providers Care Water And Sewer Systems Superintendent Name Role Phone Emelyn Easley MD Primary Care Provider [phone] Reason for Referral * Diagnostic Test (Routine) - Closed Specialty Diagnoses / Procedures Referred By Contac t Referred To Contact Radiology Diagnoses Traumatic brain injury, without LOC, sequela Acquired dysplasia of hip, unspecified laterality Procedures NM Whole Body Bone Scan Vanda Carter PA [facility] [place] [address] [place] [address] Referral ID Status Reason Start Date Expiration Date V isits Requested Visits Authorized [id number] Closed Specialty Service Requested 12/16/2016 12/16/2017 2 2 Encounter Details Date Type Department Care Team (Late st Contact Info) Description 12/16/2016 Orders [place] [address] Vanda Carter [place] [facility] [place] [address] Traumatic brain injury, without LOC, sequela; Acquired [...] PM EST Office [place] [address] Hollie Ambriz MD [facility] [place] [address] documented as of this encounter Results * [...] at 12/30/2016 5:18 PM Josse Mckee MD [facility] [place] ORDERABLES documented in this encounter Visit Diagnoses Diagnosis Traumatic brain injury, without LOC, sequela Acquired dysplasia of hip, unspecified laterality Traumatic brain injury, without LOC, sequela Acquired dysplasia of hip, unspecified laterality documented in this encounter Care Teams Water And Sewer Systems Superintendent Relationship Specialty Start Date End Date Emelyn Easley MD [address] [place] [address] PCP - General Family Medicine 08/26/16 05/26/18 documented as of this encounter
--- OUTSIDE RECORDS SUMMARY | 2023-12-29 14:08 | XMS_ITS | Encounter Summary ---
[place] [address] Care Team Providers Care Tv News Director Name Role Phone Emelyn Easley MD Primary Care Provider [phone] Reason for Visit * Auth/Cert Specialty Diagnoses / Procedures Referred By Karlo duarte Referred To Contact Diagnoses TBI, W/O LOC, SEQUEIA/ACQUIRED DYSPLASIA OF HIP Procedures PRO ANESTH, CAT/MRI SCAN, RADIATN THERAPY BONE SCAN Referral ID Status Reason Start Date Expiration Date Visits Re quested Visits Authorized [id number] 1 1 Encounter Details Date Type Department Care Team (Late st Contact Info) Description 12/30/2016 3:23 PM [place] [address] Gaby Cantu MD [facility] [place] [address] Sidney Lawson MD [facility] [place] [address] Anesthesia Record Procedure Summary Procedure Name Responsible [...] MD - 12/30/2016 4:27 PM EDT [facility] Department of Anesthesiology Post-procedure Note Patient: Tana Cavazos Procedure Summary Date Anesthesia Start Anesthesia Stop Room / Location 12/30/16 1523 1608 [facility] Procedure Diagnosis Surgeon Responsible Provider BONE SCAN (N/A ) (TBI, W/O LOC, SEQUEIA/ACQUIRED DYSPLASIA OF HIP) RESOURCE, ANESTHESIA-Gaby Hallman MD All Anesthesia Providers: Anesthesiologist: Gaby Cantu MD Supply Chain Development Manager: Sidney Lawson MD Last (1hr) Vitals: BP (!) 80/50 (12/30/16 1608) Temp 36.2 ??C (97.2 ??F) (12/30/16 1608) Pulse 93 (12/30/16 1608) Resp 16 (12/30/16 1608) SpO2 97 % (12/30/16 1608) Patient Location: PACU/[facility] Level of Consciousness: Awake and [...] BOTH LEGS performed by BARRERA OLIVER at [facility] OR ? ? PRO I&D, POST SPINE, LUMB/SACR/LUMBOSAC N/A 05/20/2014 @I & D, OPEN, DEEP ABSCESS, LUMBAR, SACRAL, LUMBOSACRAL performed by Freddy Isbell MD at [facility] OR ? ? PRO I&D, POST SPINE, LUMB/SACR/LUMBOSAC N/A 05/26/2014 @I & D, OPEN, DEEP ABSCESS, LUMBAR, SACRAL, LUMBOSACRAL performed by Freddy Isbell MD at [facility] OR ??? PRO OSTEOTOMY FEMUR SHAFT/SUPRACONDY 08/15/2010 ??OSTEOTOMY, FEMUR SHAFT OR SUPRACONDYLAR W/O FIXATION performed by BARRERA OLIVER at [facility] OR ??? PRO RECONSTRUC HIP SOCKET, RESEC FEM HEAD 08/15/2010 ??ACETABULOPLASTY (GIRDLESTONE), RESECTION FEMORAL HEAD, BILATERAL performed by BARRERA OLIVER [facility] OR ??? PRO REMOVAL DEEP IMPLANT 08/15/2010 REMOVAL IMPLANT, DEEP, BRUNO performed by BARRERA OLIVER at [facility] OR ??? PRO REMOVE INFUSN DEVICE/PUMP N/A 05/11/2014 REMOVAL OF SPINE INFUSION PUMP performed by Jamaal Samuel MD at [facility] OR ??? PRO REMOVE SPINAL CANAL CATHETER N/A 05/11/2014 REMOVAL OF INTRATHECAL OR EPIDURAL CATHETER performed by Jamaal Samuel MD at [facility] OR ??? PRO REPR, DURAL/CSF LEAK, NOT REQ LAMINECTOMY N/A 05/20/2014 @REPAIR DURAL\CSF LEAK,NOT REQUIRING LAMINECTOMY performed by Freddy Isbell MD at [facility] OR Social History Substance Use Topics ??? Smoking status: Never Smoker ??? Smokeless tobacco: Never Used Comment: NO SMOKERS IN THE HOME ??? Alcohol use No History Drug Use No Allergies Allergen Reactions ??? Fluoxetine Other (See Comments) HIVES, HEART RACES ??? Tegaderm [Transparent Dressings] Itching and Dermatitis Please use [id number] Medications: MAR and/or home medications have been [...] PM EST Office [place] [address] Hollie Ambriz MD [facility] [place] [address] documented as of this encounter Visit Diagnoses [...] mL/hr documented in this encounter Care Teams Tv News Director Relationship Specialty Start Date End Date Emelyn Easley MD [address] [place] [address] PCP - General Family Medicine 08/26/16 05/26/18 documented as of this encounter
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
--- OUTSIDE RECORDS SUMMARY | 2023-12-29 14:09 | XMS_ITS | Encounter Summary ---
[place] [address] Care Team Providers Care Auto Wash Buffer Name Role Phone Naina Lindsey MD Primary Care Provider [phone] Encounter Details Date Type Department Care Team (Late st Contact Info) Description 05/26/2014 4:16 PM EST Anesthesia [place] [address] Buster Rajput MD [facility] [place] [address] Yury Kruse MD [facility] [place] [address] Anesthesia Record Procedure Summary Procedure Name Responsible [...] HEAD, BILATERAL performed by BARRERA OLIVER [facility] OR ??? Apply of hip casts, two legs 08/15/2010 CAST APPLICATION, HIP SPICA, BOTH LEGS performed by BARRERA OLIVER at [facility] OR ??? Removal deep implant 08/15/2010 REMOVAL IMPLANT, DEEP, BRUNO performed by BARRERA OLIVER at [facility] OR ??? Osteotomy femur shaft/supracondy 08/15/2010 ??OSTEOTOMY, FEMUR SHAFT OR SUPRACONDYLAR W/O FIXATION [facility] LUMBOSACRAL performed by Freddy Isbell MD at [facility] OR ??? Repr, dural/csf leak, not req laminectomy N/A 05/20/2014 @REPAIR DURAL\CSF LEAK,NOT REQUIRING LAMINECTOMY performed by Freddy Isbell MD at [facility] OR History Substance Use Topics ??? Smoking status: Never Smoker ??? Smokeless tobacco: Never Used Comment: NO SMOKERS IN THE HOME ??? Alcohol Use: No History Drug Use No Allergies Allergen Reactions ??? Fluoxetine Other (See Comments) HIVES, HEART RACES ??? Tegaderm [Transparent Dressings] Itching and Dermatitis Please use [id number] Medications: MAR and/or home medications have been [...] PM EST Office [place] [address] Hollie Ambriz MD [facility] [place] [address] documented as of this encounter Visit Diagnoses [...] mg documented in this encounter Care Teams Auto Wash Buffer Relationship Specialty Start Date End Date Naina Lindsey MD [address] [place] [address] PCP - General 03/19/10 08/25/16 documented as of this encounter
--- OUTSIDE RECORDS SUMMARY | 2023-12-29 14:09 | XMS_ITS | Encounter Summary ---
Author Organization [facility] Address [facility] [place] [address] Care Team Providers Care Lieutenant General Name Role Phone Naina Lindsey MD Primary Care Provider [phone] Reason for Visit * Reason Comments Post-op Problem Encounter Details Date Type Department Care Team (Latest Contact Info) Description 05/20/2014 8:13 PM EST - 06/02/2014 4:25 PM [facility] Hospital Encounter Pediatric [place] [address] Belkis Louie MD [facility] [place] [address] Freddy Burciaga MD [facility] [place] [address] Jamaal Samuel MD [facility] [place] [address] Febrile illness, acute Discharge Disposition: Home with [...] Routine, Hospital Performed Vendor / contact information: [facility] Patient location post discharge: home Service requested: IV abx Start date: 05/26/2014 Responsible MD post discharge contact info: PCP Luis (Edit) Referral to Home Health - at DISCHARGE Routine, Clinic Performed Agency name and contact information: [facility] Patient location post discharge: home What services are requested: Registered Nurse, Home Health Aide, Physical Therapy, Occupational Therapy Start date: 05/26/2014 Responsible MD post discharge contact info: PCP PATIENT'S LOCATION: Tana Hayes Dirk [address] [place] [phone] (home) In discussion with the attending physician, it is certified that this patient is under their care and that they, or a Nurse Practitioner,Clinical Nurse specialist or Physician Lens Matcher who is working directly with them, had [...] Continue with therapies OT: Continue with therapies STEAM TABLE WORKER: Continue support HOME HEALTH CARE AGENCY: [facility]. PHONE: [phone] FAX: [phone] Start of care: 05/26/14 Please note that any additional orders needs or changes will need to be obtained from this patient's PCP: MD Coby [address] / [place] [address] All A agencies which cover the area of patient's residence have been reviewed, either verbally or in writing, and patient/family have chosen the home health care agency noted Emergency contact: After hours and weekends, call the [facility] mounting machine operator at and ask them to page the neurosurgery resident auto service station attendant. documented in this encounter Medications at Time [...] and given to the patient or customer engagement representative. 6) If VNA was ordered, I [...] 0.9% 50 mL Mini-Bag Plus 2 g YoniztmiitbH7G ??? baclofen 10 mg Oral Nightly ??? [...] elevated HR this am S: Kenneth Valiente. [facility], [id number] singing ABCs and counting along with stretches [...] pt to d/chome with support and continued PT/OT/MAIN ENTREE COOK AND CASHIER/VNA services. Staff communication/Mobility Recommendations: Pt. Would benefit [...] timed interventions: 30 minutes for TherEx-F Pager: [phone] Mary Joe OT Occupational Therapy Rehabilitation Department * Isra Perez RN - 06/01/2014 2:43 PM EST Patient Name: Tana Shelton Patient Age: 18 y.o. Birthdate: 1995 Admit date: 05/20/2014 Attending Physician: Jamaal Samuel MD OFFICE OF CARE MANAGEMENT Farhana Perez RN Pager: [phone] CLINICAL UTILITY BILL COLLECTION CLERK PROGRESS NOTE e-DH reviewed. Report received from DEMI Sanchez. Patient continues to require acute inpatient care for the treatment of infection. Patient remains on triple abx while awaiting final cultures. [facility] and [facility] have been referred to for discharge. Met with patient's mother at bedside. Mom had multiple questions the other day regarding equipment for home. Mattress for hospital bed was ordered and delivered to home from [facility]. Tomasa Sling was ordered and is to be delivered by [facility] when it ships to [facility] warehouse. TLSO brace to be fitted by [place]. Mom also inquired about a new motorized wheelchair. Called [facility] in [place] to see if patient would qualify, left message with Oliver- the rehabilitation teacher for [facility]. Patient will need a assessment and [...] 0.9% 50 mL Mini-Bag Plus 2 g OzoesyijspsR4U ??? baclofen 10 mg Oral Nightly ??? [...] has recovered and I can review the [facility] records and films * Natividad [...] family in a single story home in [place], [place]. Pt's mother reports that there is no stair requirement, and that she has all necessary equipment. Stairs: 0 without a rail to enter Baseline Mobility: Completely dependent for all care, home nursing VNA services 3x/week, school-based PT/OT/MAIN ENTREE COOK AND CASHIER, pt due to receive a communication device [...] than in previous treatment session, counting withthis video game script writer during stretching Objective: Patient seen for [...] internal rotators, adductors ?? Pt helped this video game script writer with opposite UE when performing stretching [...] session, playing with toys, playfully tricking this video game script writer when counting during passive stretching, and [...] exercise Natividad Esqueda PT, DPT 05/31/2014 Pager: [phone] Physical Therapy Inpatient Rehabilitation Department * Nathalie Weller RN - 05/30/2014 6:39 PM EST I am in agreement with student nurse Pamella Graves's assessment and recommendations. Small rash noted on pt's perineal area approx 1815, MD's made aware. Will continue to monitor. * Isra Perze RN - 05/30/2014 2:32 PM EST Patient Name: Tana Shelton Patient Age: 18 y.o. Birthdate: 1995 Admit date: 05/20/2014 Attending Physician: Jamaal Samuel MD OFFICE OF CARE MANAGEMENT Farhana Perez RN Pager: [phone] CLINICAL UTILITY BILL COLLECTION CLERK PROGRESS NOTE e-DH reviewed. Report received from DEMI Sanchez. Patient continues to require acute inpatient care for the treatment of infection. Patient is on triple abx. Patient needs a new mattress for her hospital bed at home. Patient's mother would like order placed with [employer]. Order pended and booking sent via [employer] Plan: CRC will continue to follow for [...] pt to d/chome with support and continued PT/OT/MAIN ENTREE COOK AND CASHIER/VNA services. Staff communication/Mobility Recommendations: Pt. Would benefit [...] timed interventions: 45 minutes for TherEx Pager: [phone] Mary Joe OT Occupational Therapy Rehabilitation Department [...] 0.9% 50 mL Mini-Bag Plus 2 g CwyufwmeukiX5W ??? baclofen 10 mg Oral Nightly ??? [...] OF CARE MANAGEMENT Farhana Perez RN Pager: [phone] CLINICAL UTILITY BILL COLLECTION CLERK PROGRESS NOTE e-DH reviewed. Report received [...] as pt becomes available. Please contact this video game script writer with any further questions or concerns. Thank you. Pager: [phone] Mary Joe, OTR/L Occupational Therapy Inpatient Rehabilitation [...] family in a single story home in [place], [place]. Pt's mother reports that there is no stair requirement, and that she has all necessary equipment. Stairs: 0 without a rail to enter Baseline Mobility: Completely dependent for all care, home nursing VNA services 3x/week, school-based PT/OT/MAIN ENTREE COOK AND CASHIER, pt due to receive a communication device [...] pt very smiley today, counting with this video game script writer during stretching, showing off her favorite [...] exercise Natividad Esqueda, PT, DPT 05/29/2014 Pager: [phone] Physical Therapy Inpatient Rehabilitation Department * Wai [...] not hesitate to page us on pager [phone] with further questions or concerns. Patient discussed [...] 0.9% 50 mL Mini-Bag Plus 2 g GlxzsbokamkS5P ??? baclofen 10 mg Oral Nightly ??? [...] 0.9% 50 mL Mini-Bag Plus 2 g BmozgbulryeC9X ??? baclofen 10 mg Oral Nightly ??? [...] CRC received call from EUNICE Hair, from [place], [place] or Asking for status as they will follow her after discharge for IV antibiotic treatment. She will need an OPAT order faxed to above agency when she is ready for discharge as well as administration teaching for home. When ready for discharge, [facility] PHONE: [phone] FAX: [phone] will also need to be updated. Referral had been made by previous CRC. Covering pager #[phone] for pager #[phone]. * Darius Maguire T - 05/27/2014 8:23 [...] 0.9% 50 mL Mini-Bag Plus 2 g NauzvaqqbgvX8U ??? baclofen 10 mg Oral Nightly ??? [...] Dressing clean and dry Wound without fluctuance [address] Assessment/Plan:: 18 y.o. female s/p removal [...] family in a single story home in [place], [place]. Pt's mother reports that there is no stair requirement, and that she has all necessary equipment. Stairs: 0 without a rail to enter Baseline Mobility: Completely dependent for all care, home nursing VNA services 3x/week, school-based PT/OT/MAIN ENTREE COOK AND CASHIER, pt due to receive a communication device [...] Natividad J Cavagnaro, PT, DPT 05/26/2014 Pager: [phone] Physical Therapy Inpatient Rehabilitation Department * Freddy Burciaga MD - 05/26/2014 6:27 AM EST Neurosurgery - Inpatient Progress Note ID: Tana Shelton, 18 y.o. female s/p removal of retained hardware, washout of infection 05/20 POD 6 Interval Hx: -ALEKSANDRA -Neurologically stable Objective: Medications: Scheduled Meds: ??? cefTAZidime (FORTAZ) 2g vial attach to sodium chloride 0.9% 50 mL Mini-Bag Plus 2 g NgduebfkghcQ6K ??? baclofen 10 mg Oral Nightly ??? [...] (05/26) or when appropriate. Please page this video game script writer if you have any questions, thank you. Natividad Esqueda PT Pager #[phone] Physical Therapy Inpatient Rehabilitation * Mary Joe, [...] pt to d/chome with support and continued PT/OT/MAIN ENTREE COOK AND CASHIER/VNA services. Spoke to CRC this am about [...] timed interventions: 27 minutes for TherEx Pager: [phone] Mary Joe OT Occupational Therapy Rehabilitation Department [...] 0.9% 50 mL Mini-Bag Plus 2 g YbhcewpuoonF9W ??? baclofen 10 mg Oral Nightly ??? [...] seen and discussed with Dr. Crabtree. Nely oBss MD Infectious Disease Fellow Internal Medicine/Pediatrics ID [...] of Care Management Farhana Perez RN Pager: [phone] Clinical Public Address Systems Mechanic Home IV Antibiotic Therapy Referral Note. Report received from NeuroSurgery Team that patient will require continued home IV antibiotic therapy after discharge from the hospital. Met with patient/family to discuss vendor and visiting nurse choices for home IV antibiotic therapy. Reviewed Home Infusion Vendors and Home Health Agencies that serve patient???s address and accept patient???s insurance. Home Health Agency: Patient requested referral to [facility] [employer]. PHONE: [phone] FAX: [phone]. Referrals sent via edischarge. Home Infusion Vendor: Patient requested referral to [place], [place] Tel: or Fax: . Referrals sent [...] 0.9% 50 mL Mini-Bag Plus 2 g AulppkseyzkZ9W ??? baclofen 10 mg Oral Nightly ??? [...] 0.9% 50 mL Mini-Bag Plus 2 g JunefvvrcujG9O ??? baclofen 10 mg Oral Nightly ??? [...] EST Office of Care Management Clinical Public Address Systems Mechanic Patient Name: Tana Shelton : 1995, 18 [...] None on File (x) HEALTH /PRESCRIPTION COVERAGE: [facility] CURRENT HOME/COMMUNITY SERVICES/EQUIPMENT: DME: [facility] hospital bed, wheelchair, tomasa lift, shower chair. Home Health Agency: [facility] PRIMARY CARE PHYSICIAN: NAINA LINDSEY MD [phone] POTENTIAL DISCHARGE NEEDS: Resume vna visits. Mother stated that she has [facility] vna - RN and Aide currently. Waiting to confirm this and pt needs. Might need home IV antibx. TRANSPORTATION @ D/C: family PLAN: CRC will continue to monitor progress, follow for continuity of care and assist with discharge planning while hospitalized Lesly Jesus RN Office of Care Management Clinical Public Address Systems Mechanic Covering for Farhana Chris [phone] Pager [phone] * Yandy Dasilva, PharmD - 05/22/2014 9:46 AM EST Clinical Pharmacist Note-Vanc Tana Barlowrd [id number] 1995 Tana Barlowrd is a 18 y.o. [...] have. Alternately, during off-hours you may call [phone] to contact a pharmacist. Yandy Dasilva, PHARMD Pager [phone] * Freddy Burciaga MD - 05/22/2014 6:59 [...] AND Vancomycin, trough AND Vancomycin Level - [facility] Order Reminder, oxyCODONE Vitals: Temp: [36.8 [...] Clinically does not seem to be of UPPER MARKER origin. Continue triple antibiotics. ID consult. Cultures [...] given to [facility]. Transferred to [place] [address] with transport services, RN + family members. Please call Anurag ICU-RN at [phone] with regards to any questions post transfer. [...] mcL Appearance UA Hazy (*) Clear Spec [place] UA 1.026 1.002 - 1.030 Color UA [...] SHELTON Ordered By: CELSONIKITETO Freddy DAILEY MR#: [id number] LOC: OR /Sex: 1995 (18 years), Female PROCEDURE: Tissue Culture SOURCE: Back COLLECTED: 05/20/2014 20:20 FREE TEXT SOURCE: Lumbar Wound Culture STARTED: 05/20/2014 22:13 STAINS / PREPARATIONS Gram Stain Report Verified:05/20/2014 22:28 Few White Blood Cells seen No microorganisms seen. TISSUE CULTURE Result Value Ref Range Tissue Culture Value: Patient Name: TANA SHELTON Ordered By: Freddy BURCIAGA MR#: [id number] LOC: OR /Sex: 1995 (18 years), Female [...] II initiated 0040: Report given to Jenn LINE PALLETIZER info reviewed/questions answered, pt ready for transfer [...] to the planned procedure. Hand Hygiene: The registered radiologic technologist did perform hand hygiene prior to line insertion. Catheter type: PICC Lot number: [id number] Procedure Technique: Skin was prepped with chlorhexidine. [...] warm and was flushed. They called the auto service station attendant neurosurgeon, who advised that they come to [...] FEMORAL HEAD, BILATERAL performed by YAS OLIVER [facility] MAIN OR ??? Apply of hip casts, two legs 08/15/2010 CAST APPLICATION, HIP SPICA, BOTH LEGS performed by YAS OLIVER at [facility] MAIN OR ??? Removal deep implant 08/15/2010 REMOVAL IMPLANT, DEEP, BRUNO performed by YSA OLIVER at [facility] MAIN OR ??? Osteotomy femur shaft/supracondy 08/15/2010 ??OSTEOTOMY, FEMUR SHAFT OR SUPRACONDYLAR W/O FIXATION performed by YAS OLIVER at [facility] MAIN OR ??? Remove spinal canal catheter N/A 05/11/2014 REMOVAL OF INTRATHECAL OR EPIDURAL CATHETER performed by Jamaal Samuel MD at [facility] MAIN OR ??? Remove infusn device/pump N/A 05/11/2014 REMOVAL OF SPINE INFUSION PUMP performed by Jamaal Samuel MD at [facility] MAIN OR Medications: No current [...] stepfather Tobacco exposure:No Day care/year in school: [employer] Physical Exam: Vitals: Patient Vitals for [...] mcL Appearance UA Hazy (*) Clear Spec [place] UA 1.026 1.002 - 1.030 Color UA [...] 05/21/14 0127 Lilli Esquivel MD Resident 05/21/14 7629 Associated attestation - Belkis Louie MD - [...] intrathecal baclofen pump in 2007 at the [facility] Mother feels that the pump has not [...] Routine, Hospital Performed Vendor / contact information: [facility] Patient location post discharge: home Service requested: IV abx Start date: 05/26/2014 Responsible MD post discharge contact info: PCP New (Edit) Referral to Home Health - at DISCHARGE Routine, Clinic Performed Agency name and contact information: [facility] Patient location post discharge: home What services are requested: Registered Nurse, Home Health Aide, Physical Therapy, Occupational Therapy Start date: 06/06/2014 Responsible MD post discharge contact info: PCP PATIENT'S LOCATION: Tana Freddy Shelton [address] [place] [phone] (home) In discussion with the attending physician, it is certified that this patient is under their care and that they, or a Nurse Practitioner,Clinical Nurse specialist or Physician Lens Matcher who is working directly with them, had [...] Continue with therapies OT: Continue with therapies STEAM TABLE WORKER: Continue support HOME HEALTH CARE AGENCY: [facility] PHONE: [phone] FAX: [phone] Start of care: 05/26/14 Please note that any additional orders needs or changes will need to be obtained from this patient's PCP: NAINA LINDSEY MD [address] / [place] [address] All VNA agencies which cover the area of patient's residence have been reviewed, either verbally or in writing, and patient/family have chosen the home health care agency noted Emergency contact: After hours and weekends, call the [facility] mounting machine operator at and ask them to page the neurosurgery resident auto service station attendant. * Plan of Care - Margot Monzon [...] Health Knowledge, Opportunity for Enhanced (Adult, NICU, [place], Obstetrics, Pediatric) Goal: Identify Signs and Symptoms [...] yo. Supervision: Continuous; Moraima. Fannie at home small animal caretaker at bedside this morning ; Mom [...] AM EST Clinical Pharmacist Note-Vancomycin Tana Shelton [id number] 1995 Tana Shelton is a 18 y.o. [...] have. Alternately, during off-hours you may call [phone] to contact a pharmacist. Elmer Tobin PHARMD Pager [phone] * Plan of Care - Leana Hicks RN - 05/28/2014 5:07 AM EST Problem: General Plan of Care Goal: Plan of Care Review OUTCOME EVALUATION NOTE: OUTCOME SUMMARY: Nearing outcome goals. Output for CRAMELLA drain minimal. Dressing dry. Afeb with stableVs. [...] Health Knowledge, Opportunity for Enhanced (Adult, NICU, [place], Obstetrics, Pediatric) Goal: Identify Signs and Symptoms [...] Burciaga MD - 05/26/2014 4:52 PM EST [facility] Operative Note Patient Name: Tana Shelton : [id number] MR#: [id number] Case Date: 05/26/2014 Surgeon: Surgeon(s) and Role: [...] (Interventions Implemented as Appropriate) 05/22/14 0634 05/24/14 8204 Discharge Needs Assessment Concerns to be Addressed [...] Health Knowledge, Opportunity for Enhanced (Adult, NICU, [place], Obstetrics, Pediatric) Goal: Identify Signs and Symptoms [...] Health Knowledge, Opportunity for Enhanced (Adult, NICU, [place], Obstetrics, Pediatric) Knowledgeable about Health Subject/Topic achieves [...] (Interventions Implemented as Appropriate) 05/22/14 0634 05/24/14 5843 Discharge Needs Assessment Concerns to be Addressed [...] FEMORAL HEAD, BILATERAL performed by YAS OLIVER [facility] OR ??? Apply of hip casts, two legs 08/15/2010 CAST APPLICATION, HIP SPICA, BOTH LEGS performed by YAS OLIVER at [facility] OR ??? Removal deep implant 08/15/2010 REMOVAL IMPLANT, DEEP, BRUNO performed by YAS OLIVER at [facility] OR ??? Osteotomy femur shaft/supracondy 08/15/2010 ??OSTEOTOMY, FEMUR SHAFT OR SUPRACONDYLAR W/O FIXATION performed by YAS OLIVER at [facility] OR ??? Remove spinal canal catheter N/A 05/11/2014 REMOVAL OF INTRATHECAL OR EPIDURAL CATHETER performed by Jamala Samuel MD at [facility] OR ??? Remove infusn device/pump N/A 05/11/2014 REMOVAL OF SPINE INFUSION PUMP performed by Jamaal Samuel MD at [facility] OR ? ? I&d, post spine, lumb/sacr/lumbosac N/A 05/20/2014 @I & D, OPEN, DEEP ABSCESS, LUMBAR, SACRAL, LUMBOSACRAL performed by Freddy Burciaga MD at [facility] OR ??? Repr, dural/csf leak, not req laminectomy N/A 05/20/2014 @REPAIR DURAL\CSF LEAK,NOT REQUIRING LAMINECTOMY performed by Freddy Burciaga MD at [facility] MAIN OR Social and Developmental History: Patient lives with her family in a single level home in [place], [place]. Pt's mother reports that their home [...] has an older sister who lives in [place] and 3 younger brothers. She likes to [...] RN and mom assist. Feeding: per mom: [place] assist for use of utensils; not observed [...] to d/c home with support and continued PT/OT/MAIN ENTREE COOK AND CASHIER/VNA services. Spoke with CRC about consultfor new [...] you for this occupational therapy consult. Pager: [phone] Mary Joe OT 05/24/2014 Occupational Therapy Rehabilitation [...] FEMORAL HEAD, BILATERAL performed by YAS OLIVER [facility] MAIN OR ??? Apply of [...] at [facility] MAIN OR ??? Remove spinal canal catheter N/A 05/11/2014 REMOVAL OF INTRATHECAL OR EPIDURAL CATHETER performed by Jamaal Samuel MD at [facility] MAIN OR ??? Remove infusn device/pump N/A 05/11/2014 REMOVAL OF SPINE INFUSION PUMP performed by Jamaal Samuel MD at [facility] MAIN OR ? ? I&d, post spine, lumb/sacr/lumbosac N/A 05/20/2014 @I & D, OPEN, DEEP ABSCESS, LUMBAR, SACRAL, LUMBOSACRAL performed by Freddy Burciaga MD at [facility] MAIN OR ??? Repr, dural/csf leak, not req laminectomy N/A 05/20/2014 @REPAIR DURAL\CSF LEAK,NOT REQUIRING LAMINECTOMY performed by Freddy Burciaga MD at [facility] MAIN OR Social History: Patient lives with her family in a single story home in [place], [place]. Pt's mother reports that there is no stair requirement, and that she has all necessary equipment. Stairs: 0 without a rail to enter Baseline Mobility: Completely dependent for all care, home nursing VNA services 3x/week, school-based PT/OT/MAIN ENTREE COOK AND CASHIER, pt due to receive a communication device [...] appropriate and joins in counting with this video game script writer while stretching Objective: Pt seen for [...] minutes Natividad Esqueda PT, DPT 05/24/2014 Pager: [phone] Physical Therapy Inpatient Rehabilitation Department * Plan [...] EST Pediatric Consult Progress Note ID: Tana Sehlton is a 18 y.o. who was admitted [...] further severe vomiting ID- -ceftazidime per ID Mithc Dean MD 05/23/2014 Attending Staff New Consult [...] based on it's ability to penetrate the UPPER MARKER. We need todiscuss whether to pursue an [...] to 40 mEq. One dose of IV iisxzzron13 mEq administered per orders. Re-check of K [...] placement of baclofen pump in 2007 in [place]. Due to lack of efficacy the baclofen [...] and Lipase were normal. Per her daycare spanish moss picker, may be related to administration of oxycodone as this has been issue in the past. Cannotexclude component of baclofen withdrawal, but less likely. No current concern for acute UPPER MARKER process. - Serial exams. Ensure daily BMs [...] although it may not have the best UPPER MARKER penetration unless meninges are actually inflamed. - [...] fluid only. MD called for antiemetic and [place] tylenol. Zofran given when order receivedand med [...] PREVENTION: Assistance: Full assist, mom at bedside. institutional aide will be coming in today to [...] PREVENTION: Assistance: Total care Supervision: RN and moarima Surveillance: The registered nurse will be responsible for purposeful rounding on each of their patients. Purposeful rounding will address the patient's pain/comfort, safety, and presence of family/observer at bedside. Purposeful rounding performed hourly between 0800 and 1800, and every other hourbetween 2000 and 0800. CPG GOAL OUTCOME EVALUATION: * Op Note - Freddy Burciaga MD - 05/21/2014 11:53 AM EST [facility] Operative Note Patient Name: Tana Shelton : [id number] MR#: [id number] Case Date: 05/20/2014 - 05/21/2014 Surgeon: Surgeon(s) [...] FEMORAL HEAD, BILATERAL performed by YAS OLIVER [facility] MAIN OR ??? Apply of [...] at [facility] MAIN OR ??? Remove spinal canal catheter N/A 05/11/2014 REMOVAL OF INTRATHECAL OR EPIDURAL CATHETER performed by Jamaal Samuel MD at [facility] MAIN OR ??? Remove infusn device/pump N/A 05/11/2014 REMOVAL OF SPINE INFUSION PUMP performed by Jamaal Samuel MD at [facility] MAIN OR No family history on [...] mcL Appearance UA Hazy (*) Clear Spec [place] UA 1.026 1.002 - 1.030 Color UA [...] TANA SHELTON Ordered By: Freddy BURCIAGA MR#: [id number] LOC: OR /Sex: 1995 (18 years), Female PROCEDURE: Tissue Culture SOURCE: Back COLLECTED: 05/20/2014 20:20 FREE TEXT SOURCE: Lumbar Wound Culture STARTED: 05/20/2014 22:13 STAINS / PREPARATIONS Gram Stain Report Verified:05/20/2014 22:28 Few White Blood Cells seen No microorganisms seen. TISSUE CULTURE Result Value Range Tissue Culture Value: Patient Name: TANA SHELTON Ordered By: Freddy BURCIAGA MR#: [id number] LOC: OR /Sex: 1995 (18 years), Female [...] PM EST Office [place] [address] Hollie Ambriz MD [facility] [place] [address] Pending Results Name Type Priority Associated Diagnoses [...] REQUIRING LAMINECTOMY Routine 05/20/2014 10:22 PM EST BERRY PICKER MACHINE OPERATOR CULTURE Routine 5 10:01 PM EST [...] Metabolic Panel (non-fasting) (06/02/2014 5:55 AM EST) [facility] Signature Glucose 75 60 - 199 mg/dL CERNER MILLENNIUM Comment:Diabetes: >=200 mg/d L plus symptoms Blood Urea Nitrogen 5(L) 8 - 18 mg/dL CERNER MILLENNIUM Creatinine 0.30(L) 0.70 - 1.20 mg/dL CERNER MILLENNIUM Comment: Please note that the pediatric reference intervals supplied above were not validated at [facility]. Results from pediatric patients should be interpreted [...] the following links into your internet browser. [email or web address] Blood specimen (specimen) 06/02/2014 5:55 AM EST 06/02/2014 6:09 AM EST Narrative Resulting Agency Comment Spec In Lab S Alek Burciaga MD CHEMISTRY ORDERABLES Performing Organization Address [facility]/ZIP Co de Phone Number [facility] * (ABNORMAL) Sedimentation rate (06/01/2014 12:40 PM EST) Sedimentation Rate Automated 46(H) 0 - 20 mm/hr [facility] Blood specimen (specimen) Venous Draw / Unknown 06/01/2014 12:40 PM EST 06/01/2014 12:48 PM EST Narrative Resulting Agency Comment Spec In Lab S Alek Burciaga MD HEMATOLOGY ORDERABLE S Performing Organization Address [facility] de Phone Number [facility] * High Sensitivity CRP (06/01/2014 12:40 PM EST) C-Reactive Protein High Sensitivity 15.4 mg/L [facility] Comment: Interpretations: 1) For accurate [...] HEMATOLOGY ORDERABLE S [facility] * (ABNORMAL) Basic Metabolic Panel (non-fasting) (06/01/2014 12:40 PM EST) [facility] Glucose 95 60 - 199 mg/dL CERNER MILLENNIUM Comment:Diabetes: >=200 mg/d L plus symptoms Blood Urea Nitrogen 4(L) 8 - 18 mg/dL CERNER MILLENNIUM Creatinine 0.38(L) 0.70 - 1.20 mg/dL CERNER MILLENNIUM Comment: Please note that the pediatric reference intervals supplied above were not validated at [facility]. Results from pediatric patients should be interpreted [...] the following links into your internet browser. [email or web address] Blood specimen (specimen) 06/01/2014 12:40 PM EST [...] S Alek Burciaga MD HEMATOLOGY ORDERABLE S [facility] MILL[facility]UM * (ABNORMAL) Basic Metabolic Panel (non-fasting) (05/30/2014 6:50 AM EST) Glucose 82 60 - 199 mg/dL CERNER MILLENNIUM Comment:Diabetes: >=200 mg/d L plus symptoms Blood Urea Nitrogen 4(L) 8 - 18 mg/dL CERNER MILLENNIUM Creatinine 0.29(L) 0.70 - 1.20 mg/dL CERNER MILLENNIUM Comment: Please note that the pediatric reference intervals supplied above were not validated at [facility]. Results from pediatric patients should be interpreted [...] the following links into your internet browser. [email or web address] Blood specimen (specimen) 05/30/2014 6:50 AM EST [...] Metabolic Panel (non-fasting) (05/29/2014 7:13 AM EST) [facility] Glucose 83 60 - 199 mg/dL CERNER MILLENNIUM Comment:Diabetes: >=200 mg/d L plus symptoms Blood Urea Nitrogen 5(L) 8 - 18 mg/dL CERNER MILLENNIUM Creatinine 0.31(L) 0.70 - 1.20 mg/dL CERNER MILLENNIUM Comment: Please note that the pediatric reference intervals supplied above were not validated at [facility]. Results from pediatric patients should be interpreted [...] the following links into your internet browser. [email or web address] Blood specimen (specimen) 05/29/2014 7:13 AM EST [...] [facility] [place]/ZIP Co de Phone Number CERALIN TOMASENNIUM * [...] Lab S Alek Burciaga MD [facility]STRY ORDERABLES [facility] * (ABNORMAL) Basic Metabolic Panel (non-fasting) (05/28/2014 9:00 AM EST) Glucose 121 60 - 199 mg/dL CERNER MILLENNIUM Comment:Diabetes: >=200 mg/d L plus symptoms Blood Urea Nitrogen 4(L) 8 - 18 mg/dL CERNER MILLENNIUM Creatinine 0.29(L) 0.70 - 1.20 mg/dL CERNER MILLENNIUM Comment: Please note that the pediatric reference intervals supplied above were not validated at [facility]. Results from pediatric patients should be interpreted [...] the following links into your internet browser. [email or web address] Blood specimen (specimen) 05/28/2014 9:00 AM EST [...] intervals supplied above were not validated at [facility]. Results from pediatric patients should be interpreted [...] the following links into your internet browser. [email or web address] Blood specimen (specimen) 05/27/2014 5:30 AM EST 05/27/2014 5:39 AM EST Narrative Resulting Agency Comment Spec In Lab S Alek Burciaga MD CHEMISTRY ORDERABLES LINDA KEMPIUM * Anaerobic Culture (05/26/2014 5:30 PM EST) Anaerobic Culture ? Patient Name: TANA SHELTON ? Ordered By: Freddy BURCIAGA ? MR#: [id number] ?LOC: ??[place] ? /Sex: ??1995 (18 years), [...] ? Ordered By: Freddy BURCIAGA ? MR#: [id number] ?LOC: ??[place] ? /Sex: ??1995 (18 years), [...] S ? Patient: TANA SHELTON ? MR#: [id number] ? S=Susceptible ??I=Intermediate ??R=Resistant ??NA=Not Applicable ? [...] ? Ordered By: Freddy BURCIAGA ? MR#: [id number] ?LOC: ??[place] ? /Sex: ??1995 (18 years), [...] Burciaga MD MICROBIOLOGY - GENER AL ORDERABLES [facility] * Tissue culture (05/26/2014 5:30 PM EST) Tissue Culture ? Patient Name: TANA SHELTON ? Ordered By: Freddy BURCIAGA ? MR#: [id number] ?LOC: ??[place] ? /Sex: ??1995 (18 years), [...] plates. ? Patient: SHELTONTANA Freddy ? MR#: [id number] ? SUSCEPTIBILITY RESULTS ? Coagulase negative Staphylococcus species ? PTA Interp ? Ampicillin ?R ? Cefazolin ? [...] (1) ? Gentamicin is not appropriate for [facility]-the[facility]. ? (2) ? Penicillin resistant, Nafcillin susceptible [...] ? Ordered By: Freddy BURCIAGA ? MR#: [id number] ?LOC: ??[place] ? /Sex: ??1995 (18 years), [...] ? Ordered By: Freddy BURCIAGA ? MR#: [id number] ?LOC: ??[place] ? /Sex: ??1995 (18 years), [...] Spec In Lab S Alek Bruciaga MD BLOOD BANK LAB ORDER MYRANDA Performing Organization Address [facility] Co de Phone Number LINDA BASHIR * ABO/Rh Typing (05/26/2014 12:40 PM EST) ABORH Type O Pos LINDA BASHIR Blood specimen (specimen) 05/26/2014 12:40 PM EST 05/26/2014 12:59 PM EST Narrative Resulting Agency Comment Spec In Lab S Alek Burciaga MD BLOOD BANK LAB ORDER MYRANDA Performing Organization Address [facility] Co de Phone Number LINDA BASHIR * [...] in the areas of greatestartifact. S Alek uBrciaga MD IM CT ORDERABLES * Differential, Automated [...] intervals supplied above were not validated at [facility]. Results from pediatric patients should be interpreted [...] the following links into your internet browser. [email or web address] Blood specimen (specimen) 05/26/2014 4:15 AM EST 05/26/2014 4:35 AM EST Narrative Resulting Agency Comment Spec In Lab S Alek Burciaga MD CHEMISTRY ORDERABLES LINDA BASHIR * Place PICC Line: Contact Vascular Access Page [phone] (05/25/2014 4:01 PM EST) Narrative [place] [...] to the planned procedure. Hand Hygiene: The registered radiologic technologist did perform hand hygiene prior to line insertion. Catheter type: PICC Lot number: [id number] Procedure Technique: Skin was prepped with chlorhexidine. [...] focal. COMPARISON: Scoliosis radiographs from 12/16/2011 FINDINGS: Director Of Accreditation views demonstrate severe rightward scoliotic deformity centered [...] No gross collections in the cervical spine. Director Of Accreditation coronal image 8 of series 8 demonstrates [...] inf,focal. COMPARISON: Scoliosis radiographs from 12/16/2011 FINDINGS: Director Of Accreditation views demonstrate severe rightward scoliotic deformity centered [...] abnormalities. No grosscollections in the cervical spine. Director Of Accreditation coronal image 8 of series 8 demonstrates [...] Narrative 05/25/2014 4:10 PM EST See accession #[id number] for dictation of this study. This report was reviewed by Andrade Rebolledo MD at 05/25/2014 4:05 PM Film and interpretation reviewed by the attending Procedure Note Andrade Roth MD - 05/25/2014 See accession #[id number] for dictation of this study. This report was reviewed by Andrade Rebolledo MD at 05/25/2014 4:05 PM Film and interpretation reviewed by the attending Alek Dumont [place] [facility] MRI ORDERABLES * Differential, Automated [...] MD HEMATOLOGY ORDERABLE S Performing Organization Address [facility] de Phone Number CERALIN TOMASENNIUM * [...] MD HEMATOLOGY ORDERABLE S Performing Organization Address [facility] Co de Phone Number LINAD KEMPIUM * (ABNORMAL) Basic Metabolic Panel (non-fasting) (05/25/2014 5:00 AM EST) Glucose 87 60 - 199 mg/dL CERNER MILLENNIUM Comment:Diabetes: >=200 mg/d L plus symptoms Blood Urea Nitrogen 6(L) 8 - 18 mg/dL CERNER MILLENNIUM Creatinine 0.27(L) 0.70 - 1.20 mg/dL CERNER MILLENNIUM Comment: Please note that the pediatric reference intervals supplied above were not validated at [facility]. Results from pediatric patients should be interpreted [...] the following links into your internet browser. [email or web address] Blood specimen (specimen) 05/25/2014 5:00 AM EST [...] intervals supplied above were not validated at [facility]. Results from pediatric patients should be interpreted [...] the following links into your internet browser. [email or web address] Blood specimen (specimen) 05/24/2014 12:42 PM EST 05/24/2014 12:42 PM EST Narrative Resulting Agency Comment Spec In Lab S Alek Burciaga MD CHEMISTRY ORDERABLES Performing Organization Address [facility] de Phone Number CERALIN MILLENNIUM * [...] Burciaga MD CHEMISTRY ORDERABLES Performing Organization Address [facility] de Phone Number CERALIN MILLENNIUM * [...] Smith MD CHEMISTRY ORDERABLES Performing Organization Address [facility] Co de Phone Number [facility] * Lipase (05/22/2014 12:45 PM EST) Pathologist [facility] Lipase 44 0 - 60 unit/L [facility] Blood specimen (specimen) 05/22/2014 12:45 PM EST 05/22/2014 1:03 PM EST Narrative Resulting Agency Comment Spec In Lab Lucho Smith MD CHEMISTRY ORDERABLES Performing Organization Address [facility] Phone Number [facility] * Amylase (05/22/2014 12:45 PM EST) Pathologist [facility] Amylase 89 28 - 100 unit/L [facility] MILLENNIUM Blood specimen (specimen) 05/22/2014 12:45 PM EST 05/22/2014 1:03 PM EST Narrative Resulting Agency Comment Spec In Lab Lucho Smith MD CHEMISTRY ORDERABLES Performing Organization Address [facility] Phone Number [facility] * (ABNORMAL) Comprehensive metabolic panel (non-fasting) (05/22/2014 12:45 PM EST) [facility] Glucose 81 60 - 199 mg/dL [facility] MILLENNIUM Comment:Diabetes: >=200 mg/d L plus symptoms Blood Urea Nitrogen 2(L) 8 - 18 mg/dL CERNER MILLENNIUM Creatinine 0.31(L) 0.70 - 1.20 mg/dL CERNER MILLENNIUM Comment: Please note that the pediatric reference intervals supplied above were not validated at [facility]. Results from pediatric patients should be interpreted in conjunction to the patient's age, height and muscle mass. Sodium 142 135 - 145 mmol/L [facility] M[facility] Potassium 3.6 3.5 - [...] 8.5 - 10.5 mg/dL CERNER MILLENNIUM Comment:result rechecked-[facility] Protein, Total 7.1 6.4 - 8.3 [...] the following links into your internet browser. [email or web address] Blood specimen (specimen) 05/22/2014 12:45 PM EST 05/22/2014 1:03 PM EST Narrative Resulting Agency Comment Spec In Lab Lucho Smith MD CHEMISTRY ORDERABLES [facility] [place] [facility] * Differential, Automated (05/22/2014 6:10 AM EST) [...] Platelet Volume 10.7 9.0 - 12.0 fL [facility] M[facility] Blood specimen (specimen) 05/22/2014 6:10 AM EST 05/22/2014 6:22 AM EST Narrative Resulting Agency Comment Spec In Lab S Alek Burciaga MD HEMATOLOGY ORDERABLE S Performing Organization Address [facility] Co de Phone Number [facility] * Vancomycin, trough (05/22/2014 6:10 AM EST) Vancomycin, Trough 6.1 mg/L [facility]OM[facility] Comment: Therapeutic range for complicated infections [...] Burciaga MD CHEMISTRY ORDERABLES Performing Organization Address [facility]/ZIP Co de Phone Number [facility] * (ABNORMAL) Basic Metabolic Panel (non-fasting) (05/22/2014 6:10 AM EST) Glucose 86 60 - 199 mg/dL [facility] Comment:Diabetes: >=200 mg/d L plus symptoms Blood Urea Nitrogen 3(L) 8 - 18 mg/dL [facility] Creatinine 0.27(L) 0.70 - 1.20 mg/dL CERNER MILLENNIUM Comment: Please note that the pediatric reference intervals supplied above were not validated at [facility]. Results from pediatric patients should be interpreted [...] the following links into your internet browser. [email or web address] Blood specimen (specimen) 05/22/2014 6:10 AM EST [...] Metabolic Panel (non-fasting) (05/21/2014 4:23 AM EST) [facility] Glucose 107 60 - 199 mg/dL CERNER MILLENNIUM Comment:Diabetes: >=200 mg/d L plus symptoms Blood Urea Nitrogen 3(L) 8 - 18 mg/dL CERNER MILLENNIUM Comment:result rechecked- ll u Creatinine 0.30(L) 0.70 - 1.20 mg/dL CERNER MILLENNIUM Comment: Please note that the pediatric reference intervals supplied above were not validated at [facility]. Results from pediatric patients should be interpreted [...] the following links into your internet browser. [email or web address] Blood specimen (specimen) 05/21/2014 4:23 AM EST 05/21/2014 4:38 AM EST Narrative Resulting Agency Comment Spec In Lab Freddy Burciaga MD CHEMISTRY ORDERABLES [facility] * Smoke And Flame Specialist Culture (05/20/2014 10:01 PM EST) Smoke And Flame Specialist Culture ? Patient Name: TANA SHELTON ? Ordered By: Freddy BURCIAGA ? MR#: [id number] ?LOC: ??[place] ? /Sex: ??1995 (18 years), ? Female ? PROCEDURE: Smoke And Flame Specialist Culture ?SOURCE: Other ? COLLECTED: 05/20/2014 22:01 ? BODY SITE: Other ? STARTED: 05/20/2014 22:22 ?FREE TEXT SOURCE: retained baclafin pump tubing ? FINAL REPORT ? Final Report ? Verified:05/24/2014 10:28 ? Pseudomonas aeruginosa isolated ? Susceptibilities previously reported ? PRELIMINARY REPORT ? Preliminary Report ? Verified:05/23/2014 11:27 ? Pseudomonas aeruginosa isolated ? Susceptibilities previously reported ? [facility] Specimen of unknown material (specimen) TOPOGRAPHY UNKNOWN / Unknown 05/20/2014 10:01 PM EST 05/20/2014 10:21 PM EST Comment:RETAINED BACLAFIN PU MP TUBING Narrative Resulting Agency Comment Spec In Lab Freddy Burciaga MD MICROBIOLOGY - GENER AL ORDERABLES [facility] * Anaerobic Culture (05/20/2014 9:25 PM EST) Anaerobic Culture ? Patient Name: TANA SHELTON ? Ordered By: Freddy BURCIAGA ? MR#: [id number] ?LOC: ??[place] ? /Sex: ??1995 (18 years), [...] ? Ordered By: Freddy BURCIAGA ? MR#: [id number] ?LOC: ??[place] ? /Sex: ??1995 (18 years), [...] ? Patient: CRISTO SHELTONLIE S ? MR#: [id number] ? S=Susceptible ??I=Intermediate ??R=Resistant ??NA=Not Applicable ? [...] ? Ordered By: Freddy BURCIAGA ? MR#: [id number] ?LOC: ??[place] ? /Sex: ??1995 (18 years), [...] ? Ordered By: Freddy BURCIAGA ? MR#: [id number] ?LOC: ??[place] ? /Sex: ??1995 (18 years), [...] ? Ordered By: BELKIS LOUIE ? MR#: [id number] ?LOC: ??[place] ? /Sex: ??1995 (18 years), ? Female ? PROCEDURE: Urine Culture ?SOURCE: U [facility] ? COLLECTED: 05/20/2014 18:46 ? STARTED: 05/20/2014 [...] Urine Dipstick Hazy(A) Clear CERNER MILLENNIUM Specific [place] Urine Automated 1.026 1.002 - 1.030 CERNER [...] Louie MD URINE ORDERABLES Performing Organization Address [facility] de Phone Number LINDA BASHIR * L-Lactate2 Whole Blood (05/20/2014 6:17 PM EST) Lactate WB 1.6 0.5 - 2.2 mmol/L [facility]AS[facility] Blood specimen (specimen) 05/20/2014 6:17 PM EST 05/20/2014 6:17 PM EST Belkis Louie MD CHEMISTRY ORDERABLES Performing Organization Address [facility] de Phone Number LINDA BASHIR * Blood culture (05/20/2014 6:00 PM EST) Blood Culture ? Patient Name: TANA SHELTON ? Ordered By: BELKIS LOUIE ? MR#: [id number] ?LOC: ??[place] ? /Sex: ??1995 (18 years), [...] MICROBIOLOGY - BLOOD ORDERABLES Performing Organization Address [facility] Co de Phone Number LINDA KEMPIUM * Green Tube HOLD (05/20/2014 5:15 PM EST) Green Hold Sample in lab. LINDA TOMASENNIUM Blood specimen (specimen) Venous Draw / Unknown 05/20/2014 5:15 PM EST 05/20/2014 5:32 PM EST Belkis Louie MD CHEMISTRY ORDERABLES Performing Organization Address [facility] de Phone Number LINDA TOMASENNIUM * [...] ? Ordered By: BELKIS LOUIE ? MR#: [id number] ?LOC: ??[place] ? /Sex: ??1995 (18 years), [...] MICROBIOLOGY - BLOOD ORDERABLES Performing Organization Address [facility] Co de Phone Number [facility] * Glucose, random (05/20/2014 5:15 PM EST) Glucose 81 60 - 199 mg/dL [facility] Comment:Diabetes: >=200 mg/d L plus symptoms Blood specimen (specimen) 05/20/2014 5:15 PM EST 05/20/2014 5:31 PM EST Narrative Resulting Agency Comment Spec In Lab Belkis Louie MD CHEMISTRY ORDERABLES Performing Organization Address [facility] de Phone Number [facility] * (ABNORMAL) Creatinine (05/20/2014 5:15 PM EST) Creatinine 0.37(L) 0.70 - 1.20 mg/dL [facility] Comment: Please note that the pediatric reference intervals supplied above were not validated at [facility]. Results from pediatric patients should be interpreted in conjunction to the patient's age, height and muscle mass. Est Glomerular Filtration Rate >60 >=60 [facility] Comment: This estimated GFR (eGFR) [...] the following links into your internet browser. [email or web address] Blood specimen (specimen) 05/20/2014 5:15 PM EST [...] Louie MD CHEMISTRY ORDERABLES Performing Organization Address [facility] Co de Phone Number CERALIN TOMASENNIUM * [...] Louie MD CHEMISTRY ORDERABLES Performing Organization Address [facility]/State/ZIP Co de Phone Number LINDA KEMPIUM [...] Nely Boss, Indication for (Active or Suspected): UPPER MARKER/Meningitis Given 06/02/2014 5:57 AM EST 2 g 100 mL/hr Given 06/01/2014 10:41 PM EST 2 g 100 mL/hr Given 06/01/2014 2:10 PM EST 2 g 100 mL/hr cefTRIAXone (ROCEPHIN) 1g in dextrose 5% 50mL 1 g, Intravenous, ONCE, 1 dose, On 05/20/14 at 2315, Administer over 30 Minutes, Indication for (Active or Suspected): UPPER MARKER/Meningitis Given 05/21/2014 1:32 AM EST 1 g 100 mL/hr cefTRIAXone (ROCEPHIN) 2g in dextrose 5% 50mL 2,000 mg (2 g), Intravenous, EVERY 12 HOURS, First dose on 05/20/14 at 1000, Until Discontinued, Administer over 30 Minutes, Indication for (Active or Suspected): for UPPER MARKER/Meningitis Given 05/22/2014 10:59 AM EST 2,000 mg [...] 30 Minutes, Indication for (Active or Suspected): UPPER MARKER/Meningitis Given 05/22/2014 5:40 AM EST 500 mg [...] Nely Boss, Indication for (Active or Suspected): UPPER MARKER/Meningitis 0616 (Given - Provider: Linsey Mcintyre RN)[id number] [...] Routine documented in this encounter Care Teams Lieutenant General Relationship Specialty Start Date End Date Naina Lindsey MD [address] [place] [address] PCP - General 03/19/10 08/25/16 documented as of this encounter
--- OUTSIDE RECORDS SUMMARY | 2023-12-29 14:10 | XMS_ITS | Encounter Summary ---
[place] [address] Care Team Providers Care Aerospace Quality Engineer Name Role Phone Naina Lindsey MD Primary Care Provider [phone] Encounter Details Date Type Department Care Team (Late st Contact Info) Description 05/20/2014 8:18 PM EST Anesthesia Event [place] [id number] Eli Alexander MD [facility] [place] [address] Neva Gómez MD [facility] [place] [address] Anesthesia Record Procedure Summary Procedure Name Responsible [...] 05/20/14; 1800; jugular vein, external left (neck); [id number]-[id number] catheter system; 18 gauge, 1 in length; [...] BILATERAL performed by BARRERA OLIVER [facility] MAIN OR ??? Apply of hip casts, two legs 08/15/2010 CAST APPLICATION, HIP SPICA, BOTH LEGS performed by BARRERA OLIVER at [facility] MAIN OR ??? Removal deep implant 08/15/2010 REMOVAL IMPLANT, DEEP, BRUNO performed by BARRERA OLIVER at [facility] MAIN OR ??? Osteotomy femur shaft/supracondy 08/15/2010 ??OSTEOTOMY, FEMUR SHAFT OR SUPRACONDYLAR W/O FIXATION performed by BARRERA OLIVER at [facility] MAIN OR ??? Remove spinal canal catheter N/A 05/11/2014 REMOVAL OF INTRATHECAL OR EPIDURAL CATHETER performed by Jamaal Samuel MD at [facility] MAIN OR ??? Remove infusn device/pump N/A 05/11/2014 REMOVAL OF SPINE INFUSION PUMP performed by Jamaal Samuel MD at [facility] MAIN OR History Substance Use Topics [...] PM EST Office Visit Infectious [facility] [place] [phone] Hollie Ambriz MD [facility] [place] [address] documented as of this encounter Visit Diagnoses [...] mg documented in this encounter Care Teams Aerospace Quality Engineer Relationship Specialty Start Date End Date Naina Lindsey MD [address] [place] [address] PCP - General 03/19/10 08/25/16 documented as of this encounter
--- OUTSIDE RECORDS SUMMARY | 2023-12-29 14:10 | XMS_ITS | Encounter Summary ---
Author Organization [facility] [place] [address] Care Team Providers Care Spearer Name Role Phone Naina Lindsey MD Primary Care Provider [phone] Reason for Visit * Reason Comments Post-op Problem Encounter Details Date Type Department Care Team (Late st Contact Info) Description 05/20/2014 7:24 PM EST - 05/20/2014 9:57 PM EST Surgery [place] [address] Freddy Burciaga MD [facility] [place] [address] @I & D, OPEN, DEEP ABSCESS, LUMBAR, [...] Routine, Hospital Performed Vendor / contact information: [facility] Patient location post discharge: home Service requested: IV abx Start date: 05/26/2014 Responsible MD post discharge contact info: WILL Smith (Edit) Referral to Home Health - at DISCHARGE Routine, Clinic Performed Agency name and contact information: [facility] Patient location post discharge: home What services are requested: Registered Nurse, Home Health Aide, Physical Therapy, Occupational Therapy Start date: 05/26/2014 Responsible MD post discharge contact info: PCP PATIENT'S LOCATION: Tana Shelton [address] [place] [phone] (home) In discussion with the attending physician, it is certified that this patient is under their care and that they, or a Nurse Practitioner,Clinical Nurse specialist or Physician Oyster Picker who is working directly with them, had [...] Continue with therapies OT: Continue with therapies FOREST ECOLOGY PROFESSOR: Continue support HOME HEALTH CARE AGENCY: [facility] [employer]. PHONE: [phone] FAX: [phone] Start of care: 05/26/14 Please note that any additional orders needs or changes will need to be obtained from this patient's PCP: MD Coby BRAGG DR / [facility] [id number] All VNA agencies which cover the area of patient's residence have been reviewed, either verbally or in writing, and patient/family have chosen the home health care agency noted Emergency contact: After hours and weekends, call the [facility] ball rolling machine operator at and ask them to page the neurosurgery resident recreational vehicle resort manager. documented in this encounter Medications at [...] (AVS) and given to the patient or underwriting account representative. 6) If VNA was ordered, [...] 0.9% 50 mL Mini-Bag Plus 2 g RjvkhtqwsazE7F ??? baclofen 10 mg Oral Nightly ??? levonorgestrel-ethinyl estradiol 1 tablet Oral Daily ??? polyethylene glycol 17 g Oral Daily ??? sodium chloride 0.9 % 5 mL Intravenous BID ??? diaZEPam 5 mg Oral BID Continuous Infusions: ??? sodium chloride 0.9% with potassium chloride 20 mEq 50 mL/hr (06/01/14 3755) PRN Meds:acetaminophen OR acetaminophen, flu vaccine (36 [...] elevated HR this am S: Kenneth Rocco. [facility], [id number] singing ABCs and counting along with stretches [...] pt to d/chome with support and continued PT/OT/MILL RECORDER/VNA services. Staff communication/Mobility Recommendations: Pt. Would benefit [...] timed interventions: 30 minutes for TherEx-F Pager: [phone] Mary Joe, OT Occupational Therapy Rehabilitation Department * Isra Perez RN - 06/01/2014 2:43 PM EST Patient Name: Tana Shelton Patient Age: 18 y.o. Birthdate: 1995 Admit date: 05/20/2014 Attending Physician: Jamaal Samuel MD OFFICE OF CARE MANAGEMENT Farhana Perez RN Pager: [phone] CLINICAL CONTRACT DRIVER PROGRESS NOTE e-DH reviewed. Report received from DEMI Sanchez. Patient continues to require acute inpatient care for the treatment of infection. Patient remains on triple abx while awaiting final cultures. [facility] and [facility] have been referred to for discharge. Met with patient's mother at bedside. Mom had multiple questions the other day regarding equipment for home. Mattress for hospital bed was ordered and delivered to home from [facility]. Tomasa Sling was ordered and is to be delivered by [facility] when it ships to [facility] warehouse. TLSO brace to be fitted by [facility]. Mom also inquired about a new motorized wheelchair. Called [facility] in [place] to see if patient would qualify, left message with Oliver- the director craft center for [facility]. Patient will need a assessment and [...] 0.9% 50 mL Mini-Bag Plus 2 g NkrewulluzpC0X ??? baclofen 10 mg Oral Nightly ??? [...] has recovered and I can review the [facility] records and films * Natividad [...] family in a single story home in [place], [place]. Pt's mother reports that there is no stair requirement, and that she has all necessary equipment. Stairs: 0 without a rail to enter Baseline Mobility: Completely dependent for all care, home nursing VNA services 3x/week, school-based PT/OT/MILL RECORDER, pt due to receive a communication device [...] than in previous treatment session, counting withthis service writer during stretching Objective: Patient seen for [...] internal rotators, adductors ?? Pt helped this service writer with opposite UE when performing stretching [...] session, playing with toys, playfully tricking this service writer when counting during passive stretching, and [...] exercise Natividad Esqueda PT, DPT 05/31/2014 Pager: [phone] Physical Therapy Inpatient Rehabilitation Department * Nathalie [...] OF CARE MANAGEMENT Farhana Perez RN Pager: [phone] CLINICAL CONTRACT DRIVER PROGRESS NOTE e-DH reviewed. Report received from DEMI Sanchez. Patient continues to require acute inpatient care for the treatment of infection. Patient is on triple abx. Patient needs a new mattress for her hospital bed at home. Patient's mother would like order placed with [employer]. Order pended and booking sent via [employer] Plan: CRC will continue to follow for [...] pt to d/chome with support and continued PT/OT/MILL RECORDER/VNA services. Staff communication/Mobility Recommendations: Pt. Would benefit [...] timed interventions: 45 minutes for TherEx Pager: [phone] Mary Joe OT Occupational Therapy Rehabilitation Department [...] 0.9% 50 mL Mini-Bag Plus 2 g OmbmochfzomW9X ??? baclofen 10 mg Oral Nightly ??? [...] Has PICC. Work towards discharge home. * Isar Perez RN - 05/29/2014 3:36 PM EST Patient Name: Tana Shelton Patient Age: 18 y.o. Birthdate: 1995 Admit date: 05/20/2014 Attending Physician: Freddy Burciaga MD OFFICE OF CARE MANAGEMENT Farhana Perez RN Pager: [phone] CLINICAL CONTRACT DRIVER PROGRESS NOTE e-DH reviewed. Report received from [...] as pt becomes available. Please contact this service writer with any further questions or concerns. Thank you. Pager: [phone] Mary Joe OTR/L Occupational Therapy Inpatient Rehabilitation [...] family in a single story home in [place], [place]. Pt's mother reports that there is no stair requirement, and that she has all necessary equipment. Stairs: 0 without a rail to enter Baseline Mobility: Completely dependent for all care, home nursing VNA services 3x/week, school-based PT/OT/MILL RECORDER, pt due to receive a communication device [...] pt very smiley today, counting with this service writer during stretching, showing off her favorite [...] exercise Natividad Esqueda PT, DPT 05/29/2014 Pager: [phone] Physical Therapy Inpatient Rehabilitation Department * Wai [...] not hesitate to page us on pager [phone] with further questions or concerns. Patient discussed with Dr. Wai Crabtree. Dimple Messina MD Fellow, Infectious Disease 05/29/2014 ID Staff: Discussed with Dr. Messina. Agree with current regimen. This will be a very difficult regimen at [facility] some further discussion is needed. We [...] 0.9% 50 mL Mini-Bag Plus 2 g CiyjdnvazvmL3V ??? baclofen 10 mg Oral Nightly ??? [...] 0.9% 50 mL Mini-Bag Plus 2 g UagbpgmmogwO9B ??? baclofen 10 mg Oral Nightly ??? [...] CRC received call from EUNICE Hair, from [place], [place] or Asking for status as they will follow her after discharge for IV antibiotic treatment. She will need an OPAT order faxed to above agency when she is ready for discharge as well as administration teaching for home. When ready for discharge, [facility] [employer] PHONE: [phone] FAX: [phone] will also need to be updated. Referral had been made by previous CRC. Covering pager #[phone] for pager #[phone]. * Darius Maguire T - 05/27/2014 8:23 [...] 0.9% 50 mL Mini-Bag Plus 2 g RnnkzrltfdaB2U ??? baclofen 10 mg Oral Nightly ??? [...] Dressing clean and dry Wound without fluctuance [address] Assessment/Plan:: 18 y.o. female s/p removal [...] family in a single story home in [place], [place]. Pt's mother reports that there is no stair requirement, and that she has all necessary equipment. Stairs: 0 without a rail to enter Baseline Mobility: Completely dependent for all care, home nursing VNA services 3x/week, school-based PT/OT/MILL RECORDER, pt due to receive a communication device [...] exercise Natividad Esqueda PT, DPT 05/26/2014 Pager: [phone] Physical Therapy Inpatient Rehabilitation Department * Freddy Burciaga MD - 05/26/2014 6:27 AM EST Neurosurgery - Inpatient Progress Note ID: Tana Shelton, 18 y.o. female s/p removal of retained hardware, washout of infection 05/20 POD 6 Interval Hx: -ALEKSANDRA -Neurologically stable Objective: Medications: Scheduled Meds: ??? cefTAZidime (FORTAZ) 2g vial attach to sodium chloride 0.9% 50 mL Mini-Bag Plus 2 g GndadeweshqN4T ??? baclofen 10 mg Oral Nightly ??? [...] (05/26) or when appropriate. Please page this service writer if you have any questions, thank you. Natividad Esqueda PT Pager #[phone] Physical Therapy Inpatient Rehabilitation * Mary Joe, [...] pt to d/chome with support and continued PT/OT/MILL RECORDER/VNA services. Spoke to CRC this about thoracic [...] timed interventions: 27 minutes for TherEx Pager: [phone] Mary Joe OT Occupational Therapy Rehabilitation Department [...] 0.9% 50 mL Mini-Bag Plus 2 g MnvbopfwwmkP7O ??? baclofen 10 mg Oral Nightly ??? [...] of Care Management Farhana Perez RN Pager: [phone] Clinical Weatherization Technician Home IV Antibiotic Therapy Referral Note. [...] Home Health Agency: Patient requested referral to [facility] [employer]. PHONE: [phone] FAX: [phone]. Referrals sent via edischarge. Home Infusion Vendor: Patient requested referral to [place], [place] Tel: or Fax: . Referrals sent [...] 0.9% 50 mL Mini-Bag Plus 2 g VzsjgdfukdhO1L ??? baclofen 10 mg Oral Nightly ??? [...] of infection 05/20 POD 3 Interval Hx: -ALKESANDRA -Neurologically stable Objective: Medications: Scheduled Meds: ??? piperacillin-tazobactam 3.375 g Intravenous Q6H ??? cefTAZidime (FORTAZ) 2g vial attach to sodium chloride 0.9% 50 mL Mini-Bag Plus 2 g SlbmikormtmM1A ??? baclofen 10 mg Oral Nightly ??? [...] PM EST Office of Care Management Clinical Weatherization Technician Patient Name: Tana Shelton : 1995, [...] /PRESCRIPTION COVERAGE: [place] [facility] CURRENT HOME/COMMUNITY SERVICES/EQUIPMENT: DME: [facility] bed, wheelchair, tomasa lift, shower chair. Home Health Agency: [facility] PRIMARY CARE PHYSICIAN: NAINA LINDSEY MD [phone] POTENTIAL DISCHARGE NEEDS: Resume vna visits. Mother stated that she has [facility] - RN and Aide currently. Waiting to confirm this and pt needs. Might need home IV antibx. TRANSPORTATION @ D/C: family PLAN: CRC will continue to monitor progress, follow for continuity of care and assist with discharge planning while hospitalized Lesly Jesus RN Office of Care Management Clinical Weatherization Technician Covering for Farhana Chris [phone] Pager [phone] * Yandy Dasilva, PharmD - 05/22/2014 9:46 AM EST Clinical Pharmacist Note-Vanc Tana S Cat [id number] 1995 Tana Barlowrd is a 18 y.o. [...] have. Alternately, during off-hours you may call [phone] to contact a pharmacist. Yandy Dasilva PHARMBenjamin Pager [phone] * Freddy Burciaga MD - 05/22/2014 6:59 [...] Clinically does not seem to be of PHARMACIST MANAGER origin. Continue triple antibiotics. ID consult. Cultures [...] given to Diana RN Peds. Transferred to [place] [address] with transport services, RN + family members. Please call Anurag ICU-RN at [phone] with regards to any questions post transfer. [...] mcL Appearance UA Hazy (*) Clear Spec [place] UA 1.026 1.002 - 1.030 Color UA [...] TANA SHELTON Ordered By: Freddy BURCIAGA MR#: [id number] LOC: OR /Sex: 1995 (18 years), Female PROCEDURE: Tissue Culture SOURCE: Back COLLECTED: 05/20/2014 20:20 FREE TEXT SOURCE: Lumbar Wound Culture STARTED: 05/20/2014 22:13 STAINS / PREPARATIONS Gram Stain Report Verified:05/20/2014 22:28 Few White Blood Cells seen No microorganisms seen. TISSUE CULTURE Result Value Ref Range Tissue Culture Value: Patient Name: TANA SHELTON Ordered By: EVITAFreddy IRENE MR#: [id number] LOC: OR /Sex: 1995 (18 years), Female [...] II initiated 0040: Report given to Jenn TRACK SUPERINTENDENT info reviewed/questions answered, pt ready for transfer [...] to the planned procedure. Hand Hygiene: The senior product designer did perform hand hygiene prior to line insertion. Catheter type: PICC Lot number: [id number] Procedure Technique: Skin was prepped with chlorhexidine. [...] warm and was flushed. They called the recreational vehicle resort manager neurosurgeon, who advised that they come [...] by YAS OLIVER [facility] MAIN OR ??? Apply of hip casts, two legs 08/15/2010 CAST APPLICATION, HIP SPICA, BOTH LEGS performed by YAS OLIVER at [facility] MAIN OR ??? Removal deep implant 08/15/2010 REMOVAL IMPLANT, DEEP, BRUNO performed by YAS OLIVER at [facility] MAIN OR ??? Osteotomy femur shaft/supracondy 08/15/2010 ??OSTEOTOMY, FEMUR SHAFT OR SUPRACONDYLAR W/O FIXATION performed by YAS OLIVER at [facility] MAIN OR ??? Remove spinal canal catheter N/A 05/11/2014 REMOVAL OF INTRATHECAL OR EPIDURAL CATHETER performed by Jamaal Samuel MD at [facility] MAIN OR ??? Remove infusn device/pump N/A 05/11/2014 REMOVAL OF SPINE INFUSION PUMP performed by Jamaal Samuel MD at [facility] MAIN OR Medications: No current facility-administered [...] stepfather Tobacco exposure:No Day care/year in school: [employer] Physical Exam: Vitals: Patient Vitals [...] mcL Appearance UA Hazy (*) Clear Spec [place] UA 1.026 1.002 - 1.030 Color UA [...] intrathecal baclofen pump in 2007 at the [facility]. Mother feels that the [...] Size requested: twin bed Vendor Name/Contact information: [facility]on [facility] New (Edit) Referral for Outpatient Antibiotics Routine, Hospital Performed Vendor / contact information: [facility] Patient location post discharge: home Service requested: IV abx Start date: 05/26/2014 Responsible MD post discharge contact info: PCP New (Edit) Referral to Home Health - at DISCHARGE Routine, Clinic Performed Agency name and contact information: [facility] Patient location post discharge: home What services are requested: Registered Nurse, Home Health Aide, Physical Therapy, Occupational Therapy Start date: 06/06/2014 Responsible MD post discharge contact info: PCP PATIENT'S LOCATION: Tana Shelton [address] [place] [phone] (home) In discussion with the attending physician, it is certified that this patient is under their care and that they, or a Nurse Practitioner,Clinical Nurse specialist or Physician Oyster Picker who is working directly with them, had [...] Continue with therapies OT: Continue with therapies FOREST ECOLOGY PROFESSOR: Continue support HOME HEALTH CARE AGENCY: [facility] PHONE: [phone] FAX: [phone] Start of care: 05/26/14 Please note that any additional orders needs or changes will need to be obtained from this patient's PCP: MD Coby BRAGG DR / [place] [address] All VNA agencies which cover the area of patient's residence have been reviewed, either verbally or in writing, and patient/family have chosen the home health care agency noted Emergency contact: After hours and weekends, call the [facility] ball rolling machine operator at and ask them to page the neurosurgery resident recreational vehicle resort manager. * Plan of Care - Margot [...] yo. Supervision: Continuous; Moraima. Fannie at home mandrel puller at bedside this morning ; Mom arrived [...] Health Knowledge, Opportunity for Enhanced (Adult, NICU, [place], Obstetrics, Pediatric) Goal: Identify Signs and Symptoms [...] (Interventions Implemented as Appropriate) 05/25/14 0527 05/26/14 5515 Plan of Care Review Plan of Care [...] Health Knowledge, Opportunity for Enhanced (Adult, NICU, [place], Obstetrics, Pediatric) Goal: Identify Signs and Symptoms [...] AM EST Clinical Pharmacist Note-Vancomycin Tana Shelton [id number] 1995 Tana Shelton is a 18 y.o. [...] contact a pharmacist. Elmer Tobin, [place] Pager [phone] * Plan of Care - Leana Hicks [...] Outcome: Ongoing (Interventions Implemented as Appropriate) 05/27/14 2449 Infection, Risk/Actual (Adult, Obstetrics) Infection Prevention/Resolution/Control making progress toward outcome Problem: Fall/Trauma/Injury Risk (Pediatric) Goal: Identify Signs and Symptoms and Related Risk Factors Signs and symptoms and related risk factors are identified upon initiation of Human Response Clinical Practice Guideline (CPG) Outcome: Outcome (s) achieved Date Met: 05/27/14 05/22/14202905/25/14 017 Fall/Trauma/Injury Risk Personal Related Risk Factors (Fall/Trauma/Injury [...] to achieve outcome * Op Note - Frdedy Burciaga MD - 05/26/2014 4:52 PM EST [facility] Operative Note Patient Name: Tana Shelton : [id number] MR#: [id number] Case Date: 05/26/2014 Surgeon: Surgeon(s) and Role: [...] (Interventions Implemented as Appropriate) 05/22/14 0634 05/24/14 7564 Discharge Needs Assessment Concerns to be Addressed [...] Health Knowledge, Opportunity for Enhanced (Adult, NICU, [place], Obstetrics, Pediatric) Knowledgeable about Health Subject/Topic achieves [...] bedside;lighting adjusted for task/safety;low bed;environmental modification 05/25/14 0533 Musculoskeletal Interventions Activity/Level of Assistance -- Self-Care [...] Outcome: Ongoing (Interventions Implemented as Appropriate) 05/24/14 8926 Plan of Care Review Plan of Care [...] FEMORAL HEAD, BILATERAL performed by YAS OLIVER [facility] OR ??? Apply of hip casts, two legs 08/15/2010 CAST APPLICATION, HIP SPICA, BOTH LEGS performed by YAS OLIVER at [facility] OR ??? Removal deep implant 08/15/2010 REMOVAL IMPLANT, DEEP, BRUNO performed by YAS OLIVER at [facility] OR ??? Osteotomy femur shaft/supracondy 08/15/2010 ??OSTEOTOMY, FEMUR SHAFT OR SUPRACONDYLAR W/O FIXATION performed by YAS OLIVER at [facility] OR ??? Remove spinal canal catheter N/A 05/11/2014 REMOVAL OF INTRATHECAL OR EPIDURAL CATHETER performed by Jamaal Samuel MD at [facility] OR ??? Remove infusn device/pump N/A 05/11/2014 REMOVAL OF SPINE INFUSION PUMP performed by Jamaal Samuel MD at [facility] OR ? ? I&d, post spine, lumb/sacr/lumbosac N/A 05/20/2014 @I & D, OPEN, DEEP ABSCESS, LUMBAR, SACRAL, LUMBOSACRAL performed by Freddy Burciaga MD at [facility] OR ??? Repr, dural/csf leak, not req laminectomy N/A 05/20/2014 @REPAIR DURAL\CSF LEAK,NOT REQUIRING LAMINECTOMY performed by Freddy Burciaga MD at [facility] OR Social and Developmental History: Patient lives with her family in a single level home in [place], [place]. Pt's mother reports that their home [...] has an older sister who lives in [place] and 3 younger brothers. She likes to [...] RN and mom assist. Feeding: per mom: IGIUGIG assist for use of utensils; not observed [...] to d/c home with support and continued PT/OT/MILL RECORDER/VNA services. Spoke with CRC about consultfor new [...] you for this occupational therapy consult. Pager: [phone] Mary Joe OT 05/24/2014 Occupational Therapy Rehabilitation [...] FEMORAL HEAD, BILATERAL performed by YAS OLIVER [facility] OR ??? Apply of hip casts, two legs 08/15/2010 CAST APPLICATION, HIP SPICA, BOTH LEGS performed by YAS OLIVER at [facility] OR ??? Removal deep implant 08/15/2010 REMOVAL IMPLANT, DEEP, BRUNO performed by YAS OLIVER at [facility] OR ??? Osteotomy femur shaft/supracondy 08/15/2010 ??OSTEOTOMY, FEMUR SHAFT OR SUPRACONDYLAR W/O FIXATION performed by YAS OLIVER at [facility] OR ??? Remove spinal canal catheter N/A 05/11/2014 REMOVAL OF INTRATHECAL OR EPIDURAL CATHETER performed by Jamaal Samuel MD at [facility] OR ??? Remove infusn device/pump N/A 05/11/2014 REMOVAL OF SPINE INFUSION PUMP performed by Jamaal Samuel MD at [facility] OR ? ? I&d, post spine, lumb/sacr/lumbosac N/A 05/20/2014 @I & D, OPEN, DEEP ABSCESS, LUMBAR, SACRAL, LUMBOSACRAL performed by Freddy Burciaga MD at [facility] OR ??? Repr, dural/csf leak, not req laminectomy N/A 05/20/2014 @REPAIR DURAL\CSF LEAK,NOT REQUIRING LAMINECTOMY performed by Freddy Burciaga MD at [facility] MAIN OR Social History: Patient lives with her family in a single story home in [place], [place]. Pt's mother reports that there is no stair requirement, and that she has all necessary equipment. Stairs: 0 without a rail to enter Baseline Mobility: Completely dependent for all care, home nursing VNA services 3x/week, school-based PT/OT/MILL RECORDER, pt due to receive a communication device [...] appropriate and joins in counting with this service writer while stretching Objective: Pt seen for [...] minutes Natividad Esqueda PT, DPT 05/24/2014 Pager: [phone] Physical Therapy Inpatient Rehabilitation Department * Plan [...] based on it's ability to penetrate the PHARMACIST MANAGER. We need todiscuss whether to pursue an [...] to 40 mEq. One dose of IV plhfhomrv02 mEq administered per orders. Re-check of K [...] and Lipase were normal. Per her daycare home care giver, may be related to administration of oxycodone as this has been issue in the past. Cannotexclude component of baclofen withdrawal, but less likely. No current concern for acute PHARMACIST MANAGER process. - Serial exams. Ensure daily BMs [...] although it may not have the best PHARMACIST MANAGER penetration unless meninges are actually inflamed. - [...] fluid only. MD called for antiemetic and IN tylenol. Zofran given when order receivedand med [...] Burciaga MD - 05/21/2014 11:53 AM EST [facility] Operative Note Patient Name: Tana Shelton : [id number] MR#: [id number] Case Date: 05/20/2014 - 05/21/2014 Surgeon: Surgeon(s) [...] MD 05/21/2014 * Plan of Care - aDna Foster RN - 05/21/2014 5:50 AM EST [...] by YAS OLIVER [facility] MAIN OR ??? Apply of hip casts, two legs 08/15/2010 CAST APPLICATION, HIP SPICA, BOTH LEGS performed by YAS OLIVER at [facility] MAIN OR ??? Removal deep implant 08/15/2010 REMOVAL IMPLANT, DEEP, BRUNO performed by YAS OLIVER at [facility] MAIN OR ??? Osteotomy femur shaft/supracondy 08/15/2010 ??OSTEOTOMY, FEMUR SHAFT OR SUPRACONDYLAR W/O FIXATION performed by YAS OLIVER at [facility] MAIN OR ??? Remove spinal canal catheter N/A 05/11/2014 REMOVAL OF INTRATHECAL OR EPIDURAL CATHETER performed by Jamaal Samuel MD at [facility] MAIN OR ??? Remove infusn device/pump N/A 05/11/2014 REMOVAL OF SPINE INFUSION PUMP performed by Jamaal Samuel MD at [facility] MAIN OR No family history on [...] mcL Appearance UA Hazy (*) Clear Spec [place] UA 1.026 1.002 - 1.030 Color UA [...] TANA SHELTON Ordered By: Freddy BURCIAGA MR#: [id number] LOC: OR /Sex: 1995 (18 years), Female PROCEDURE: Tissue Culture SOURCE: Back COLLECTED: 05/20/2014 20:20 FREE TEXT SOURCE: Lumbar Wound Culture STARTED: 05/20/2014 22:13 STAINS / PREPARATIONS Gram Stain Report Verified:05/20/2014 22:28 Few White Blood Cells seen No microorganisms seen. TISSUE CULTURE Result Value Range Tissue Culture Value: Patient Name: TANA SHELTON Ordered By: Freddy BURCIAGA MR#: [id number] LOC: OR /Sex: 1995 (18 years), Female [...] PM EST Office [place] [address] Hollie Ambriz MD [facility] [place] [address] Pending Results Name Type Priority Associated Diagnoses [...] REQUIRING LAMINECTOMY Routine 05/20/2014 10:22 PM EST SHRIMP BOAT CAPTAIN CULTURE Routine 5 10:01 PM EST ANAEROBIC [...] MD HEMATOLOGY ORDERABLE S Performing Organization Address City/[facility]/ZIP Co de Phone Number CERALIN [...] Metabolic Panel (non-fasting) (06/02/2014 5:55 AM EST) [facility] Glucose 75 60 - 199 mg/dL CERNER MILLENNIUM Comment:Diabetes: >=200 mg/d L plus symptoms Blood Urea Nitrogen 5(L) 8 - 18 mg/dL CERNER MILLENNIUM Creatinine 0.30(L) 0.70 - 1.20 mg/dL CERNER MILLENNIUM Comment: Please note that the pediatric reference intervals supplied above were not validated at [facility]. Results from pediatric patients should be interpreted [...] the following links into your internet browser. [email or web address] Blood specimen (specimen) 06/02/2014 5:55 AM EST 06/02/2014 6:09 AM EST Narrative Resulting Agency Comment Spec In Lab S Alek Burciaga MD CHEMISTRY ORDERABLES [facility] * (ABNORMAL) Sedimentation rate (06/01/2014 12:40 PM EST) Sedimentation Rate Automated 46(H) 0 - 20 mm/hr LINDA BASHIR Blood specimen (specimen) Venous Draw / Unknown 06/01/2014 12:40 PM EST 06/01/2014 12:48 PM EST Narrative Resulting Agency Comment Spec In Lab S Alek Burciaga MD HEMATOLOGY ORDERABLE S Performing Organization Address [facility] Phone Number [facility] * High Sensitivity CRP (06/01/2014 12:40 PM EST) Pathologist [facility] [place] C-Reactive Protein High Sensitivity 15.4 mg/L [facility] Comment: Interpretations: 1) For accurate cardiac [...] Burciaga MD CHEMISTRY ORDERABLES Performing Organization Address [facility] Phone Number [facility] * Differential, Automated (06/01/2014 12:40 PM EST) Neutrophil % 66.8 % [facility] Neutrophil Absolute 4.96 1.50 - 6.30 [...] intervals supplied above were not validated at [facility]. Results from pediatric patients should be interpreted [...] the following links into your internet browser. [email or web address] Blood specimen (specimen) 06/01/2014 12:40 PM EST [...] ORDERABLE S Performing Organization Address [facility]/ZIP Co de Phone Number CERNER MILLENNIUM * [...] intervals supplied above were not validated at [facility]. Results from pediatric patients should be interpreted [...] the following links into your internet browser. [email or web address] Blood specimen (specimen) 05/30/2014 6:50 AM EST [...] intervals supplied above were not validated at [facility]. Results from pediatric patients should be interpreted [...] the following links into your internet browser. [email or web address] Blood specimen (specimen) 05/29/2014 7:13 AM EST [...] Lab S Alek Burciaga MD CHEMISTRY ORDERABLES [facility] * (ABNORMAL) Basic Metabolic Panel (non-fasting) (05/28/2014 9:00 AM EST) [facility] Glucose 121 60 - 199 mg/dL CERNER MILLENNIUM Comment:Diabetes: >=200 mg/d L plus symptoms Blood Urea Nitrogen 4(L) 8 - 18 mg/dL CERNER MILLENNIUM Creatinine 0.29(L) 0.70 - 1.20 mg/dL CERNER MILLENNIUM Comment: Please note that the pediatric reference intervals supplied above were not validated at [facility]. Results from pediatric patients should be interpreted [...] the following links into your internet browser. [email or web address] Blood specimen (specimen) 05/28/2014 9:00 AM EST [...] * (ABNORMAL) Hemogram (05/27/2014 5:30 AM EST) [facility] White Blood Cell 6.8 4.0 - 10.0 [...] S Alek Burciaga MD HEMATOLOGY ORDERABLE S [facility] * (ABNORMAL) Basic Metabolic Panel (non-fasting) (05/27/2014 5:30 AM EST) [facility] Glucose 81 60 - 199 mg/dL CERNER MILLENNIUM Comment:Diabetes: >=200 mg/d L plus symptoms Blood Urea Nitrogen 4(L) 8 - 18 mg/dL CERNER MILLENNIUM Creatinine 0.21(L) 0.70 - 1.20 mg/dL CERNER MILLENNIUM Comment: Please note that the pediatric reference intervals supplied above were not validated at [facility]. Results from pediatric patients should be interpreted [...] the following links into your internet browser. [email or web address] Blood specimen (specimen) 05/27/2014 5:30 AM EST 05/27/2014 5:39 AM EST Narrative Resulting Agency Comment Spec In Lab Freddy Burciaga MD CHEMISTRY ORDERABLES Performing Organization Address City/State/[facility] [place] Phone Number [facility] * Anaerobic Culture (05/26/2014 5:30 PM EST) Anaerobic Culture ? Patient Name: TANA SHELTON ? Ordered By: Freddy BURCIAGA ? MR#: [id number] ?LOC: ??[place] ? /Sex: ??1995 (18 years), ? Female ? PROCEDURE: Anaerobic Culture ?SOURCE: Back ? COLLECTED: 05/26/2014 17:30 ?FREE TEXT SOURCE: Lumbar ? STARTED: 05/26/2014 17:41 ? FINAL REPORT ? Final Report ? Verified:2014 12:55 ? No anaerobic organisms isolated ? PRELIMINARY REPORT ? Preliminary Report ? Verified:2014 12:08 ? No anaerobic organisms isolated to date ? [facility] Structure of back of trunk (body structure) 05/26/2014 5:30 PM EST 05/26/2014 5:41 PM EST Comment:LUMBAR Narrative Resulting Agency Comment Spec In Lab Freddy Burciaga MD MICROBIOLOGY - GENER AL ORDERABLES [facility] * Tissue culture (05/26/2014 5:30 PM EST) Tissue Culture ? Patient Name: TANA SHELTON ? Ordered By: Freddy BURCIAGA ? MR#: [id number] ?LOC: ??[place] ? /Sex: ??1995 (18 years), [...] S ? Patient: TANA SHELTON ? MR#: [id number] ? S=Susceptible ??I=Intermediate ??R=Resistant ??NA=Not Applicable ? DDS=Dose dependent-suscept ible ??NS=Non-suscepti ble ? [facility] Structure of back of trunk (body structure) 05/26/2014 5:30 PM EST 05/26/2014 5:41 PM EST Comment:LUMBAR Narrative Resulting Agency Comment Spec In Lab Freddy Burciaga MD MICROBIOLOGY - GENER AL ORDERABLES [facility] * Anaerobic Culture (05/26/2014 5:30 PM EST) Anaerobic Culture ? Patient Name: TANA SHELTON ? Ordered By: Freddy BURCIAGA ? MR#: [id number] ?LOC: ??[place] ? /Sex: ??1995 (18 years), [...] ? Ordered By: Freddy BURCIAGA ? MR#: [id number] ?LOC: ??[place] ? /Sex: ??1995 (18 years), [...] plates. ? Patient: TANA SHELTON ? MR#: [id number] ? SUSCEPTIBILITY RESULTS ? Coagulase negative Staphylococcus [...] (1) ? Gentamicin is not appropriate for [facility]. ? (2) ? Penicillin resistant, Nafcillin susceptible [...] MD MICROBIOLOGY - GENER AL ORDERABLES [facility]OUNT[facility] * Anaerobic Culture (05/26/2014 5:30 PM EST) Anaerobic Culture ? Patient Name: TANA SHELTON ? Ordered By: Freddy BURCIAGA ? MR#: [id number] ?LOC: ??[place] ? /Sex: ??1995 (18 years), [...] ? Ordered By: Freddy BURCIAGA ? MR#: [id number] ?LOC: ??[place] ? /Sex: ??1995 (18 years), [...] Screen Interp Negative CERNER MILLENNIUM Expires at [id number] on: [id number] CERNER THOMENNIUM Blood specimen (specimen) 05/26/2014 12:40 PM EST 05/26/2014 12:59 PM EST Narrative Resulting Agency Comment Spec In Lab S Alek Burciaga MD BLOOD BANK LAB ORDER MYRANDA LINDA TOMASWhiteout Networks * ABO/Rh Typing (05/26/2014 12:40 PM EST) [...] S Alek Burciaga MD HEMATOLOGY ORDERABLE S [facility] MILLENNIUM * (ABNORMAL) Basic Metabolic Panel (non-fasting) (05/26/2014 4:15 AM EST) [facility] Glucose 88 60 - 199 mg/dL CERNER MILLENNIUM Comment:Diabetes: >=200 mg/d L plus symptoms Blood Urea Nitrogen 6(L) 8 - 18 mg/dL CERNER MILLENNIUM Creatinine 0.28(L) 0.70 - 1.20 mg/dL CERNER MILLENNIUM Comment: Please note that the pediatric reference intervals supplied above were not validated at [facility]. Results from pediatric patients should be interpreted [...] the following links into your internet browser. [email or web address] Blood specimen (specimen) 05/26/2014 4:15 AM EST 05/26/2014 4:35 AM EST Narrative Resulting Agency Comment Spec In Lab S Alek Burciaga MD CHEMISTRY ORDERABLES LINDA BASHIR * Place PICC Line: Contact Vascular Access Page [phone] (05/25/2014 4:01 PM EST) Narrative [place] [...] to the planned procedure. Hand Hygiene: The senior product designer did perform hand hygiene prior to line insertion. Catheter type: PICC Lot number: [id number] Procedure Technique: Skin was prepped with chlorhexidine. [...] focal. COMPARISON: Scoliosis radiographs from 12/16/2011 FINDINGS: Laboratory Veterinarian views demonstrate severe rightward scoliotic deformity centered [...] No gross collections in the cervical spine. Laboratory Veterinarian coronal image 8 of series 8 demonstrates [...] inf,focal. COMPARISON: Scoliosis radiographs from 12/16/2011 FINDINGS: Laboratory Veterinarian views demonstrate severe rightward scoliotic deformity centered [...] abnormalities. No grosscollections in the cervical spine. Laboratory Veterinarian coronal image 8 of series 8 demonstrates [...] Narrative 05/25/2014 4:10 PM EST See accession #[id number] for dictation of this study. This report was reviewed by Andrade Rebolledo MD at 05/25/2014 4:05 PM Film and interpretation reviewed by the attending Procedure Note Andrade Roth MD - 05/25/2014 See accession #[id number] for dictation of this study. This report [...] Metabolic Panel (non-fasting) (05/25/2014 5:00 AM EST) [facility] Glucose 87 60 - 199 mg/dL CERNER MILLENNIUM Comment:Diabetes: >=200 mg/d L plus symptoms Blood Urea Nitrogen 6(L) 8 - 18 mg/dL CERNER MILLENNIUM Creatinine 0.27(L) 0.70 - 1.20 mg/dL CERNER MILLENNIUM Comment: Please note that the pediatric reference intervals supplied above were not validated at [facility]. Results from pediatric patients should be interpreted [...] the following links into your internet browser. [email or web address] Blood specimen (specimen) 05/25/2014 5:00 AM EST [...] 8 - 18 mg/dL CERNER MILLENNIUM Comment:result rechecked-[facility] Creatinine 0.39(L) 0.70 - 1.20 mg/dL CERNER MILLENNIUM Comment: Please note that the pediatric reference intervals supplied above were not validated at [facility]. Results from pediatric patients should be interpreted [...] the following links into your internet browser. [email or web address] Blood specimen (specimen) 05/24/2014 12:42 PM EST 05/24/2014 12:42 PM EST Narrative Resulting Agency Comment Spec In Lab S Alek Burciaga MD CHEMISTRY ORDERABLES Performing Organization Address [facility] Co de Phone Number LINDA KEMPIUM [...] Burciaga MD CHEMISTRY ORDERABLES Performing Organization Address [facility] de Phone Number LINDA [...] Burciaga MD CHEMISTRY ORDERABLES Performing Organization Address [facility] Co de Phone Number CERALIN TOMASENNIUM [...] Burciaga MD CHEMISTRY ORDERABLES Performing Organization Address [facility] Phone Number CERNER MILLENNIUM * (ABNORMAL) Phosphorus (05/22/2014 12:45 PM EST) Phosphorus 2.2(L) 2.5 - 4.5 mg/dL CERNER MILLENNIUM Blood specimen (specimen) Venous Draw / Unknown 05/22/2014 12:45 PM EST 05/22/2014 1:03 PM EST Narrative Resulting Agency Comment Spec In Lab Lucho Smith MD CHEMISTRY ORDERABLES Performing Organization Address [facility] de Phone Number CERNER MILLENNIUM * Magnesium (05/22/2014 12:45 PM EST) Magnesium 0.69 0.69 - 1.07 mmol/L CERNER MILLENNIUM Blood specimen (specimen) Venous Draw / Unknown 05/22/2014 12:45 PM EST 05/22/2014 1:03 PM EST Narrative Resulting Agency Comment Spec In Lab Lucho Smith MD CHEMISTRY ORDERABLES Performing Organization Address [facility] Co de Phone Number CERNER MILLENNIUM * Lipase (05/22/2014 12:45 PM EST) Lipase 44 0 - 60 unit/L CERNER MILLENNIUM Blood specimen (specimen) 05/22/2014 12:45 PM EST 05/22/2014 1:03 PM EST Narrative Resulting Agency Comment Spec In Lab Lucho Smith MD CHEMISTRY ORDERABLES Performing Organization Address [facility] de Phone Number CERNER MILLENNIUM * Amylase (05/22/2014 12:45 PM EST) Amylase 89 28 - 100 unit/L CERNER MILLENNIUM Blood specimen (specimen) 05/22/2014 12:45 PM EST 05/22/2014 1:03 PM EST Narrative Resulting Agency Comment Spec In Lab Lucho Smith MD CHEMISTRY ORDERABLES Performing Organization Address [facility] de Phone Number CERNER MILLENNIUM * (ABNORMAL) Comprehensive metabolic panel (non-fasting) (05/22/2014 12:45 PM EST) Glucose 81 60 - 199 mg/dL CERNER MILLENNIUM Comment:Diabetes: >=200 mg/d L plus symptoms Blood Urea Nitrogen 2(L) 8 - 18 mg/dL CERNER MILLENNIUM Creatinine 0.31(L) 0.70 - 1.20 mg/dL CERNER MILLENNIUM Comment: Please note that the pediatric reference intervals supplied above were not validated at [facility]. Results from pediatric patients should be interpreted [...] the following links into your internet browser. [email or web address] Blood specimen (specimen) 05/22/2014 12:45 PM EST [...] ORDERABLE S Performing Organization Address [facility] Co de Phone Number LINDA BASHIR [...] Burciaga MD CHEMISTRY ORDERABLES Performing Organization Address [facility] Co de Phone Number [facility] * (ABNORMAL) Basic Metabolic Panel (non-fasting) (05/22/2014 6:10 AM EST) Glucose 86 60 - 199 mg/dL [facility] MILLENNIUM Comment:Diabetes: >=200 mg/d L plus symptoms Blood Urea Nitrogen 3(L) 8 - 18 mg/dL CERNER MILLENNIUM Creatinine 0.27(L) 0.70 - 1.20 mg/dL CERNER MILLENNIUM Comment: Please note that the pediatric reference intervals supplied above were not validated at [facility]. Results from pediatric patients should be interpreted [...] the following links into your internet browser. [email or web address] Blood specimen (specimen) 05/22/2014 6:10 AM EST [...] Spec In Lab S Aelk Burciaga MD HEMATOLOGY ORDERABLE S CERNER MILLENNIUM [...] intervals supplied above were not validated at [facility]. Results from pediatric patients should be interpreted [...] the following links into your internet browser. [email or web address] Blood specimen (specimen) 05/21/2014 4:23 AM EST 05/21/2014 4:38 AM EST Narrative Resulting Agency Comment Spec In Lab Freddy Burciaga MD CHEMISTRY ORDERABLES Performing Organization Address City/State/[facility] [place] Phone Number [facility] * Public Welfare Director Culture (05/20/2014 10:01 PM EST) Public Welfare Director Culture ? Patient Name: TANA SHELTON ? Ordered By: Freddy BURCIAGA ? MR#: [id number] ?LOC: ??[place] ? /Sex: ??1995 (18 years), ? Female ? PROCEDURE: Public Welfare Director Culture ?SOURCE: Other ? COLLECTED: 05/20/2014 [...] ? Ordered By: Freddy BURCIAGA ? MR#: [id number] ?LOC: ??[place] ? /Sex: ??1995 (18 years), [...] ? Ordered By: Freddy BURCIAGA ? MR#: [id number] ?LOC: ??[place] ? /Sex: ??1995 (18 years), [...] ? S ? Patient: [place] ? MR#: [id number] ? S=Susceptible ??I=Intermediate ??R=Resistant ??NA=Not Applicable ? [...] ? Ordered By: Freddy BURCIAGA ? MR#: [id number] ?LOC: ??[place] ? /Sex: ??1995 (18 years), [...] ? Ordered By: Freddy BURCIAGA ? MR#: [id number] ?LOC: ??[place] ? /Sex: ??1995 (18 years), [...] ? Ordered By: BELKIS LOUIE ? MR#: [id number] ?LOC: ??[place] ? /Sex: ??1995 (18 years), ? Female ? PROCEDURE: Urine Culture ?SOURCE: U [facility] ? COLLECTED: 05/20/2014 18:46 ? STARTED: 05/20/2014 [...] Urine Dipstick Hazy(A) Clear CERNER MILLENNIUM Specific [place] Urine Automated 1.026 1.002 - 1.030 CERNER [...] In Lab Belkis Louie MD URINE ORDERABLES [facility] * L-Lactate2 Whole Blood (05/20/2014 6:17 PM EST) Pathologist [facility] [place] Lactate WB 1.6 0.5 - 2.2 mmol/L [facility] Blood specimen (specimen) 05/20/2014 6:17 PM EST 05/20/2014 6:17 PM EST Belkis Louie MD CHEMISTRY ORDERABLES [facility] * Blood culture (05/20/2014 6:00 PM EST) Blood Culture ? Patient Name: TANA SHELTON ? Ordered By: BELKIS LOUIE ? MR#: [id number] ?LOC: ??[place] ? /Sex: ??1995 (18 years), [...] MD HEMATOLOGY ORDERABLE S Performing Organization Address City/[facility]/ZIP Co de Phone Number CERALIN TOMASENNIUM * [...] ? Ordered By: BELKIS LOUIE ? MR#: [id number] ?LOC: ??[place] ? /Sex: ??1995 (18 years), [...] EST) Glucose 81 60 - 199 mg/dL [facility] Comment:Diabetes: >=200 mg/d L plus symptoms Blood specimen (specimen) 05/20/2014 5:15 PM EST 05/20/2014 5:31 PM EST Narrative Resulting Agency Comment Spec In Lab Belkis Louie MD CHEMISTRY ORDERABLES Performing Organization Address [facility] Co de Phone Number [facility] * (ABNORMAL) Creatinine (05/20/2014 5:15 PM EST) Creatinine 0.37(L) 0.70 - 1.20 mg/dL [facility] Comment: Please note that the pediatric reference intervals supplied above were not validated at [facility]. Results from pediatric patients should be interpreted in conjunction to the patient's age, height and muscle mass. Est Glomerular Filtration Rate >60 >=60 [facility] Comment: This estimated GFR (eGFR) value [...] the following links into your internet browser. [email or web address] Blood specimen (specimen) 05/20/2014 5:15 PM EST 05/20/2014 5:31 PM EST Narrative Resulting Agency Comment Spec In Lab Belkis Louie MD CHEMISTRY ORDERABLES Performing Organization Address City/[facility] Co de Phone Number LINDA BASHIR * BUN (05/20/2014 5:15 PM EST) Blood Urea Nitrogen 9 8 - 18 mg/dL [facility] Blood specimen (specimen) 05/20/2014 5:15 PM [...] Louie MD CHEMISTRY ORDERABLES Performing Organization Address City/[facility]/ZIP Co de Phone Number LINDA BASHIR documented [...] Nely Boss, Indication for (Active or Suspected): PHARMACIST MANAGER/Meningitis 0616 (Given - Provider: Linsey Mcintyre RN)[phone] [...] Dolores Patino RN) 012 (Given - Provider: Mragot Monzon, EUNICE)0836 (Given - Provider: Hedy Vazquez [...] Routine documented in this encounter Care Teams Spearer Relationship Specialty Start Date End Date Naina Lindsey MD [address] [place] [address] [place] [address] PCP - General 03/19/10 08/25/16 documented as of this encounter
--- OUTSIDE RECORDS SUMMARY | 2023-12-29 14:10 | XMS_ITS | Encounter Summary ---
Author Organization Formerly [facility] [place] [address] Care Team Providers Care Technical Analyst Name Role Phone Naina Lindsey MD Primary Care Provider [phone] Reason for Visit * Reason Comments Post-op Problem Encounter Details Date Type Department Care Team (Late st Contact Info) Description 05/26/2014 4:30 PM EST - 05/26/2014 7:03 PM EST Surgery [place] [address] Freddy Burciaga MD [facility] [place] [address] @I & D, OPEN, DEEP ABSCESS, LUMBAR, [...] Routine, Hospital Performed Vendor / contact information: [facility] Patient location post discharge: home Service requested: IV abx Start date: 05/26/2014 Responsible MD post discharge contact info: WILL Smith (Edit) Referral to Home Health - at DISCHARGE Routine, Clinic Performed Agency name and contact information: [facility] Patient location post discharge: home What services are requested: Registered Nurse, Home Health Aide, Physical Therapy, Occupational Therapy Start date: 05/26/2014 Responsible MD post discharge contact info: PCP PATIENT'S LOCATION: Tana Shelton [address] [place] [phone] (home) In discussion with the attending physician, it is certified that this patient is under their care and that they, or a Nurse Practitioner,Clinical Nurse specialist or Physician Insolvency Practitioner who is working directly with them, had [...] Continue with therapies OT: Continue with therapies BLOCK SAWYER: Continue support HOME HEALTH CARE AGENCY: [facility]. PHONE: [phone] FAX: [phone] Start of care: 05/26/14 Please note that any additional orders needs or changes will need to be obtained from this patient's PCP: MD Coby BRAGG DR / [facility] [id number] All VNA agencies which cover the area of patient's residence have been reviewed, either verbally or in writing, and patient/family have chosen the home health care agency noted Emergency contact: After hours and weekends, call the [facility] glove machine operator at and ask them to page the neurosurgery resident sound engineer audio control. documented in this encounter Medications at Time [...] (AVS) and given to the patient or b2b outside sales representative. 6) If VNA was ordered, [...] 0.9% 50 mL Mini-Bag Plus 2 g DobmczybxjaN6Q ??? baclofen 10 mg Oral Nightly ??? levonorgestrel-ethinyl estradiol 1 tablet Oral Daily ??? polyethylene glycol 17 g Oral Daily ??? sodium chloride 0.9 % 5 mL Intravenous BID ??? diaZEPam 5 mg Oral BID Continuous Infusions: ??? sodium chloride 0.9% with potassium chloride 20 mEq 50 mL/hr (06/01/14 0695) PRN Meds:acetaminophen OR acetaminophen, flu vaccine (36 [...] elevated HR this am S: Kenneth Rocco. [facility], [id number] singing ABCs and counting along with stretches [...] pt to d/chome with support and continued PT/OT/FIBERGLASS BONDING MACHINE TENDER/VNA services. Staff communication/Mobility Recommendations: Pt. Would benefit [...] timed interventions: 30 minutes for TherEx-F Pager: [phone] Mary Joe, OT Occupational Therapy Rehabilitation Department * Isra Perez RN - 06/01/2014 2:43 PM EST Patient Name: Tana Shelton Patient Age: 18 y.o. Birthdate: 1995 Admit date: 05/20/2014 Attending Physician: Jamaal Samuel MD OFFICE OF CARE MANAGEMENT Farhana Perez RN Pager: [phone] CLINICAL GAME FARM SUPERVISOR PROGRESS NOTE e-DH reviewed. Report received from DEMI Sanchez. Patient continues to require acute inpatient care for the treatment of infection. Patient remains on triple abx while awaiting final cultures. [facility] and [facility] have been referred to for discharge. Met with patient's mother at bedside. Mom had multiple questions the other day regarding equipment for home. Mattress for hospital bed was ordered and delivered to home from [facility]. Tomsaa Sling was ordered and is to be delivered by [facility] when it ships to [facility] warehouse. TLSO brace to be fitted by [facility]. Mom also inquired about a new motorized wheelchair. Called [facility] in [place] to see if patient would qualify, left message with Oliver- the rn cardiac rehab for [facility]. Patient will need a assessment [...] 0.9% 50 mL Mini-Bag Plus 2 g DzffeygkxptI8Q ??? baclofen 10 mg Oral Nightly ??? [...] has recovered and I can review the [facility] records and films * Natividad Esqueda, PT [...] family in a single story home in [place], [place]. Pt's mother reports that there is no stair requirement, and that she has all necessary equipment. Stairs: 0 without a rail to enter Baseline Mobility: Completely dependent for all care, home nursing VNA services 3x/week, school-based PT/OT/FIBERGLASS BONDING MACHINE TENDER, pt due to receive a communication device [...] than in previous treatment session, counting withthis rewriter during stretching Objective: Patient seen for 45 [...] internal rotators, adductors ?? Pt helped this rewriter with opposite UE when performing stretching as [...] session, playing with toys, playfully tricking this rewriter when counting during passive stretching, and helping [...] exercise Natividad Esqueda PT, DPT 05/31/2014 Pager: [phone] Physical Therapy Inpatient Rehabilitation Department * Nathalie [...] OF CARE MANAGEMENT Farhana Perez RN Pager: [phone] CLINICAL GAME FARM SUPERVISOR PROGRESS NOTE e-DH reviewed. Report received from DEMI Sanchez. Patient continues to require acute inpatient care for the treatment of infection. Patient is on triple abx. Patient needs a new mattress for her hospital bed at home. Patient's mother would like order placed with [email or web address]. Order pended and booking sent via [employer] Plan: CRC will continue to follow for [...] pt to d/chome with support and continued PT/OT/FIBERGLASS BONDING MACHINE TENDER/VNA services. Staff communication/Mobility Recommendations: Pt. Would benefit [...] timed interventions: 45 minutes for TherEx Pager: [phone] Mary Joe OT Occupational Therapy Rehabilitation Department [...] 0.9% 50 mL Mini-Bag Plus 2 g UzobtszyylgI9X ??? baclofen 10 mg Oral Nightly ??? [...] OF CARE MANAGEMENT Farhana Perez RN Pager: [phone] CLINICAL GAME FARM SUPERVISOR PROGRESS NOTE e-DH reviewed. Report received from [...] as pt becomes available. Please contact this rewriter with any further questions or concerns. Thank you. Pager: [phone] Mary Joe OTR/L Occupational Therapy Inpatient Rehabilitation [...] family in a single story home in [place], [place]. Pt's mother reports that there is no stair requirement, and that she has all necessary equipment. Stairs: 0 without a rail to enter Baseline Mobility: Completely dependent for all care, home nursing VNA services 3x/week, school-based PT/OT/FIBERGLASS BONDING MACHINE TENDER, pt due to receive a communication device [...] pt very smiley today, counting with this rewriter during stretching, showing off her favorite toys [...] exercise Natividad Esqueda PT, DPT 05/29/2014 Pager: [phone] Physical Therapy Inpatient Rehabilitation Department * Wai [...] not hesitate to page us on pager [phone] with further questions or concerns. Patient discussed with Dr. Wai Crabtree. Dimple Messina MD Fellow, Infectious Disease 05/29/2014 ID Staff: Discussed with Dr. Messina. Agree with current regimen. This will be a very difficult regimen at [facility] some further discussion is needed. [...] 0.9% 50 mL Mini-Bag Plus 2 g WefvghoitriU8X ??? baclofen 10 mg Oral Nightly ??? [...] 0.9% 50 mL Mini-Bag Plus 2 g JwmojlyrexkD2Z ??? baclofen 10 mg Oral Nightly ??? [...] CRC received call from EUNICE Hair, from [place], [place] or Asking for status as they will follow her after discharge for IV antibiotic treatment. She will need an OPAT order faxed to above agency when she is ready for discharge as well as administration teaching for home. When ready for discharge, [facility] PHONE: [phone] FAX: [phone] will also need to be updated. Referral had been made by previous CRC. Covering pager #[phone] for pager #[phone]. * Darius Maguire T - 05/27/2014 8:23 [...] 0.9% 50 mL Mini-Bag Plus 2 g LhugzrxdrnrQ2U ??? baclofen 10 mg Oral Nightly ??? [...] Dressing clean and dry Wound without fluctuance [address] Assessment/Plan:: 18 y.o. female s/p removal [...] family in a single story home in [place], [place]. Pt's mother reports that there is no stair requirement, and that she has all necessary equipment. Stairs: 0 without a rail to enter Baseline Mobility: Completely dependent for all care, home nursing VNA services 3x/week, school-based PT/OT/FIBERGLASS BONDING MACHINE TENDER, pt due to receive a communication device [...] exercise Natividad Esqueda PT, DPT 05/26/2014 Pager: [phone] Physical Therapy Inpatient Rehabilitation Department * Freddy Burciaga MD - 05/26/2014 6:27 AM EST Neurosurgery - Inpatient Progress Note ID: Tana Shelton, 18 y.o. female s/p removal of retained hardware, washout of infection 05/20 POD 6 Interval Hx: -ALEKSANDRA -Neurologically stable Objective: Medications: Scheduled Meds: ??? cefTAZidime (FORTAZ) 2g vial attach to sodium chloride 0.9% 50 mL Mini-Bag Plus 2 g BbicgepwfbjP8X ??? baclofen 10 mg Oral Nightly ??? [...] (05/26) or when appropriate. Please page this rewriter if you have any questions, thank you. Natividad Esqueda PT Pager #[phone] Physical Therapy Inpatient Rehabilitation * Mary Joe, [...] pt to d/chome with support and continued PT/OT/FIBERGLASS BONDING MACHINE TENDER/VNA services. Spoke to CRC this about thoracic [...] timed interventions: 27 minutes for TherEx Pager: [phone] Mary Joe OT Occupational Therapy Rehabilitation Department [...] 0.9% 50 mL Mini-Bag Plus 2 g GzvdkbwsdbgZ5R ??? baclofen 10 mg Oral Nightly ??? [...] of Care Management Farhana Perez RN Pager: [phone] Clinical Death Claim Examiner Home IV Antibiotic Therapy Referral Note. Report received from NeuroSurgery Team that patient will require continued home IV antibiotic therapy after discharge from the hospital. Met with patient/family to discuss vendor and visiting nurse choices for home IV antibiotic therapy. Reviewed Home Infusion Vendors and Home Health Agencies that serve patient???s address and accept patient???s insurance. Home Health Agency: Patient requested referral to [facility]. PHONE: [phone] FAX: [phone]. Referrals sent via edischarge. Home Infusion Vendor: Patient requested referral to [place], [place] [phone] or Fax: . Referrals sent via edischarge. [...] 0.9% 50 mL Mini-Bag Plus 2 g PzalcojnvsxQ1K ??? baclofen 10 mg Oral Nightly ??? [...] 0.9% 50 mL Mini-Bag Plus 2 g AuiyklfountJ2U ??? baclofen 10 mg Oral Nightly ??? [...] PM EST Office of Care Management Clinical Death Claim Examiner Patient Name: Tana Shelton : 1995, 18 [...] /PRESCRIPTION COVERAGE: [place] [facility] CURRENT HOME/COMMUNITY SERVICES/EQUIPMENT: DME: [facility] bed, wheelchair, tomasa lift, shower chair. Home Health Agency: [facility] PRIMARY CARE PHYSICIAN: NAINA LINDSEY MD [phone] POTENTIAL DISCHARGE NEEDS: Resume vna visits. Mother stated that she has [facility] - RN and Aide currently. Waiting to confirm this and pt needs. Might need home IV antibx. TRANSPORTATION @ D/C: family PLAN: CRC will continue to monitor progress, follow for continuity of care and assist with discharge planning while hospitalized Lesly Jesus RN Office of Care Management Clinical Death Claim Examiner Covering for Farhana Chris [phone] Pager [phone] * Yandy Dasilva, PharmD - 05/22/2014 9:46 AM EST Clinical Pharmacist Note-Vanc Tana S Dirk [id number] 1995 Tana Barlowrd is a 18 y.o. [...] have. Alternately, during off-hours you may call [phone] to contact a pharmacist. Yandy Dasilva PHARMBenjamin Pager [phone] * Freddy Burciaga MD - 05/22/2014 6:59 [...] Clinically does not seem to be of TONGUE TRIMMER origin. Continue triple antibiotics. ID consult. Cultures [...] given to Diana RN Peds. Transferred to [place] [address] with transport services, RN + family members. Please call Anurag ICU-RN at [phone] with regards to any questions post transfer. [...] mcL Appearance UA Hazy (*) Clear Spec [place] UA 1.026 1.002 - 1.030 Color UA [...] TANA SHELTON Ordered By: Freddy BURCIAGA MR#: [id number] LOC: OR /Sex: 1995 (18 years), Female PROCEDURE: Tissue Culture SOURCE: Back COLLECTED: 05/20/2014 20:20 FREE TEXT SOURCE: Lumbar Wound Culture STARTED: 05/20/2014 22:13 STAINS / PREPARATIONS Gram Stain Report Verified:05/20/2014 22:28 Few White Blood Cells seen No microorganisms seen. TISSUE CULTURE Result Value Ref Range Tissue Culture Value: Patient Name: TANA SHELTON Ordered By: EVITAFreddy IRENE MR#: [id number] LOC: OR /Sex: 1995 (18 years), Female [...] II initiated 0040: Report given to Jenn BUNG DRIVER info reviewed/questions answered, pt ready for transfer [...] to the planned procedure. Hand Hygiene: The package reinspector did perform hand hygiene prior to line insertion. Catheter type: PICC Lot number: [id number] Procedure Technique: Skin was prepped with chlorhexidine. [...] warm and was flushed. They called the sound engineer audio control neurosurgeon, who advised that they come to [...] (GIRDLESTONE), RESECTION FEMORAL HEAD, BILATERAL performed by YSA OLIVER [facility] MAIN OR ??? Apply of hip casts, two legs 08/15/2010 CAST APPLICATION, HIP SPICA, BOTH LEGS performed by YAS OLIVER at [facility] MAIN OR ??? Removal deep implant 08/15/2010 REMOVAL IMPLANT, DEEP, BRUNO performed by YAS OLIVER at [facility] MAIN OR ??? Osteotomy femur shaft/supracondy 08/15/2010 ??OSTEOTOMY, FEMUR SHAFT OR SUPRACONDYLAR W/O FIXATION performed by YAS OLIVER at [facility] MAIN OR ??? Remove spinal canal catheter N/A 05/11/2014 REMOVAL OF INTRATHECAL OR EPIDURAL CATHETER performed by Jamaal Samuel MD at [facility] MAIN OR ??? Remove infusn device/pump N/A 05/11/2014 REMOVAL OF SPINE INFUSION PUMP performed by Jamaal Samuel MD at [facility] MAIN OR Medications: No current facility-administered [...] mcL Appearance UA Hazy (*) Clear Spec [place] UA 1.026 1.002 - 1.030 Color UA [...] intrathecal baclofen pump in 2007 at the [facility]. Mother feels that the pump has not [...] Size requested: twin bed Vendor Name/Contact information: [facility] [place] [facility] New (Edit) Referral for Outpatient Antibiotics Routine, Hospital Performed Vendor / contact information: [facility] Patient location post discharge: home Service requested: IV abx Start date: 05/26/2014 Responsible MD post discharge contact info: PCP New (Edit) Referral to Home Health - at DISCHARGE Routine, Clinic Performed Agency name and contact information: [facility] Patient location post discharge: home What services are requested: Registered Nurse, Home Health Aide, Physical Therapy, Occupational Therapy Start date: 06/06/2014 Responsible MD post discharge contact info: PCP PATIENT'S LOCATION: Tana Shelton [address] [place] [phone] (home) In discussion with the attending physician, it is certified that this patient is under their care and that they, or a Nurse Practitioner,Clinical Nurse specialist or Physician Insolvency Practitioner who is working directly with them, had [...] Continue with therapies OT: Continue with therapies BLOCK SAWYER: Continue support HOME HEALTH CARE AGENCY: [facility] PHONE: [phone] FAX: [phone] Start of care: 05/26/14 Please note that any additional orders needs or changes will need to be obtained from this patient's PCP: MD Coby BRAGG DR / [place] [id number] All VNA agencies which cover the area of patient's residence have been reviewed, either verbally or in writing, and patient/family have chosen the home health care agency noted Emergency contact: After hours and weekends, call the [facility] glove machine operator at and ask them to page the neurosurgery resident sound engineer audio control. * Plan of Care - Margot Monzon [...] yo. Supervision: Continuous; Moraima. Fannie at home bookkeeping clerks supervisor at bedside this morning ; Mom [...] Health Knowledge, Opportunity for Enhanced (Adult, NICU, [place], Obstetrics, Pediatric) Goal: Identify Signs and Symptoms [...] (Interventions Implemented as Appropriate) 05/25/14 0527 05/26/14 7705 Plan of Care Review Plan of Care [...] Health Knowledge, Opportunity for Enhanced (Adult, NICU, [place], Obstetrics, Pediatric) Goal: Identify Signs and Symptoms [...] AM EST Clinical Pharmacist Note-Vancomycin Tana Shelton [id number] 1995 Tana Shelton is a 18 y.o. [...] contact a pharmacist. Elmer Tobin, [place] Pager [phone] * Plan of Care - Leana Hicks [...] Outcome: Ongoing (Interventions Implemented as Appropriate) 05/27/14 3999 Infection, Risk/Actual (Adult, Obstetrics) Infection Prevention/Resolution/Control making progress toward outcome Problem: Fall/Trauma/Injury Risk (Pediatric) Goal: Identify Signs and Symptoms and Related Risk Factors Signs and symptoms and related risk factors are identified upon initiation of Human Response Clinical Practice Guideline (CPG) Outcome: Outcome (s) achieved Date Met: 05/27/14 05/22/14202905/25/14 916 Fall/Trauma/Injury Risk Personal Related Risk Factors (Fall/Trauma/Injury [...] MD - 05/26/2014 4:52 PM EST [facility] Operative Note Patient Name: Tana Shelton : [id number] MR#: [id number] Case Date: 05/26/2014 Surgeon: Surgeon(s) and Role: [...] (Interventions Implemented as Appropriate) 05/22/14 0634 05/24/14 3624 Discharge Needs Assessment Concerns to be Addressed [...] Health Knowledge, Opportunity for Enhanced (Adult, NICU, [place], Obstetrics, Pediatric) Knowledgeable about Health Subject/Topic achieves [...] Outcome: Ongoing (Interventions Implemented as Appropriate) 05/24/14 4017 Plan of Care Review Plan of Care [...] by YAS OLIVER [facility] OR ??? Apply of hip casts, two legs 08/15/2010 CAST APPLICATION, HIP SPICA, BOTH LEGS performed by YAS OLIVER at [facility] OR ??? Removal deep implant 08/15/2010 REMOVAL IMPLANT, DEEP, BRUNO performed by YAS OLIVER at [facility] OR ??? Osteotomy femur shaft/supracondy 08/15/2010 ??OSTEOTOMY, FEMUR SHAFT OR SUPRACONDYLAR W/O FIXATION performed by YAS OLIVER at [facility] OR ??? Remove spinal canal catheter N/A 05/11/2014 REMOVAL OF INTRATHECAL OR EPIDURAL CATHETER performed by Jamaal Samuel MD at [facility] OR ??? Remove infusn device/pump N/A 05/11/2014 REMOVAL OF SPINE INFUSION PUMP performed by Jamaal Samuel MD at [facility] OR ? ? I&d, post spine, lumb/sacr/lumbosac N/A 05/20/2014 @I & D, OPEN, DEEP ABSCESS, LUMBAR, SACRAL, LUMBOSACRAL performed by Freddy Burciaga MD at [facility] OR ??? Repr, dural/csf leak, not req laminectomy N/A 05/20/2014 @REPAIR DURAL\CSF LEAK,NOT REQUIRING LAMINECTOMY performed by Freddy Burciaga MD at [facility] OR Social and Developmental History: Patient lives with her family in a single level home in [place], [place]. Pt's mother reports that their home [...] has an older sister who lives in [place] and 3 younger brothers. She likes to [...] RN and mom assist. Feeding: per mom: [place] assist for use of utensils; not observed [...] to d/c home with support and continued PT/OT/FIBERGLASS BONDING MACHINE TENDER/VNA services. Spoke with CRC about consultfor new [...] you for this occupational therapy consult. Pager: [phone] Mary Joe OT 05/24/2014 Occupational Therapy Rehabilitation [...] by YAS OLIVER [facility] OR ??? Apply of hip casts, two legs 08/15/2010 CAST APPLICATION, HIP SPICA, BOTH LEGS performed by YAS OLIVER at [facility] OR ??? Removal deep implant 08/15/2010 REMOVAL IMPLANT, DEEP, BRUNO performed by YAS OLIVER at [facility] OR ??? Osteotomy femur shaft/supracondy 08/15/2010 ??OSTEOTOMY, FEMUR SHAFT OR SUPRACONDYLAR W/O FIXATION performed by YAS OLIVER at [facility] OR ??? Remove spinal canal catheter N/A 05/11/2014 REMOVAL OF INTRATHECAL OR EPIDURAL CATHETER performed by Jamaal Samuel MD at [facility] OR ??? Remove infusn device/pump N/A 05/11/2014 REMOVAL OF SPINE INFUSION PUMP performed by Jamaal Samuel MD at [facility] OR ? ? I&d, post spine, lumb/sacr/lumbosac N/A 05/20/2014 @I & D, OPEN, DEEP ABSCESS, LUMBAR, SACRAL, LUMBOSACRAL performed by Freddy Burciaga MD at [facility] OR ??? Repr, dural/csf leak, not req laminectomy N/A 05/20/2014 @REPAIR DURAL\CSF LEAK,NOT REQUIRING LAMINECTOMY performed by Freddy Burciaga MD at [facility] MAIN OR Social History: Patient lives with her family in a single story home in [place], [place]. Pt's mother reports that there is no stair requirement, and that she has all necessary equipment. Stairs: 0 without a rail to enter Baseline Mobility: Completely dependent for all care, home nursing VNA services 3x/week, school-based PT/OT/FIBERGLASS BONDING MACHINE TENDER, pt due to receive a communication device [...] appropriate and joins in counting with this rewriter while stretching Objective: Pt seen for evaluation [...] minutes Natividad Esqueda PT, DPT 05/24/2014 Pager: [phone] Physical Therapy Inpatient Rehabilitation Department * Plan [...] based on it's ability to penetrate the TONGUE TRIMMER. We need todiscuss whether to pursue an [...] to 40 mEq. One dose of IV vefjuozoa88 mEq administered per orders. Re-check of K [...] and Lipase were normal. Per her daycare window shade installer, may be related to administration of oxycodone as this has been issue in the past. Cannotexclude component of baclofen withdrawal, but less likely. No current concern for acute TONGUE TRIMMER process. - Serial exams. Ensure daily BMs [...] although it may not have the best TONGUE TRIMMER penetration unless meninges are actually inflamed. - [...] fluid only. MD called for antiemetic and ND tylenol. Zofran given when order receivedand med [...] PREVENTION: Assistance: Full assist, mom at bedside. preparole counseling aide will be coming in today to [...] MD - 05/21/2014 11:53 AM EST [facility] Operative Note Patient Name: Tana Shelton : [id number] MR#: [id number] Case Date: 05/20/2014 - 05/21/2014 Surgeon: Surgeon(s) [...] HEAD, BILATERAL performed by YAS OLIVER [facility] MAIN OR ??? Apply of hip casts, two legs 08/15/2010 CAST APPLICATION, HIP SPICA, BOTH LEGS performed by YAS OLIVER at [facility] MAIN OR ??? Removal deep implant 08/15/2010 REMOVAL IMPLANT, DEEP, BRUNO performed by YAS OLIVER at [facility] MAIN OR ??? Osteotomy femur shaft/supracondy 08/15/2010 ??OSTEOTOMY, FEMUR SHAFT OR SUPRACONDYLAR W/O FIXATION performed by YAS OLIVER at [facility] MAIN OR ??? Remove spinal canal catheter N/A 05/11/2014 REMOVAL OF INTRATHECAL OR EPIDURAL CATHETER performed by Jamaal Samuel MD at [facility] MAIN OR ??? Remove infusn device/pump N/A 05/11/2014 REMOVAL OF SPINE INFUSION PUMP performed by Jamaal Samuel MD at [facility] MAIN OR No family history on [...] mcL Appearance UA Hazy (*) Clear Spec [place] UA 1.026 1.002 - 1.030 Color UA [...] TANA SHELTON Ordered By: Freddy BURCIAGA MR#: [id number] LOC: OR /Sex: 1995 (18 years), Female PROCEDURE: Tissue Culture SOURCE: Back COLLECTED: 05/20/2014 20:20 FREE TEXT SOURCE: Lumbar Wound Culture STARTED: 05/20/2014 22:13 STAINS / PREPARATIONS Gram Stain Report Verified:05/20/2014 22:28 Few White Blood Cells seen No microorganisms seen. TISSUE CULTURE Result Value Range Tissue Culture Value: Patient Name: TANA SHELTON Ordered By: Freddy BURCIAGA MR#: [id number] LOC: OR /Sex: 1995 (18 years), Female [...] PM EST Office [place] [address] Hollie Ambriz MD [facility] [place] [address] Pending Results Name Type Priority Associated Diagnoses [...] REQUIRING LAMINECTOMY Routine 05/20/2014 10:22 PM EST DIRECTOR OF PUBLIC HEALTH CULTURE Routine 5 10:01 PM EST ANAEROBIC [...] supplied above were not validated at [facility]. Results from pediatric patients should be interpreted [...] the following links into your internet browser. [email or web address] Blood specimen (specimen) 06/02/2014 5:55 AM EST [...] MD HEMATOLOGY ORDERABLE S Performing Organization Address [facility] de Phone Number LINDA BASHIR * High Sensitivity CRP (06/01/2014 12:40 PM EST) Pathologist [facility] C-Reactive Protein High Sensitivity 15.4 mg/L [facility] Comment: Interpretations: 1) For accurate cardiac risk [...] Burciaga MD CHEMISTRY ORDERABLES Performing Organization Address [facility] Co [...] supplied above were not validated at [facility]. Results from pediatric patients should be interpreted [...] the following links into your internet browser. [email or web address]://[email or web address] [email or web address] Blood specimen (specimen) 06/01/2014 12:40 PM EST [...] MD HEMATOLOGY ORDERABLE S Performing Organization Address [facility] Co [...] MD HEMATOLOGY ORDERABLE S Performing Organization Address [facility] Co [...] supplied above were not validated at [facility]. Results from pediatric patients should be interpreted [...] the following links into your internet browser. http://[email or web address] [email or web address] Blood specimen (specimen) 05/30/2014 6:50 AM EST [...] supplied above were not validated at [facility]. Results from pediatric patients should be interpreted [...] the following links into your internet browser. http://[email or web address] [email or web address]://[employer]/DHMCnkf Blood specimen (specimen) 05/29/2014 7:13 AM EST 05/29/2014 7:13 AM EST Narrative Resulting Agency Comment Spec In Lab S Alek Burciaga MD CHEMISTRY ORDERABLES Performing Organization Address City/[facility] Co [...] MD HEMATOLOGY ORDERABLE S Performing Organization Address [facility] de Phone Number [...] MD HEMATOLOGY ORDERABLE S Performing Organization Address [facility] Co [...] supplied above were not validated at [facility]. Results from pediatric patients should be interpreted [...] the following links into your internet browser. http://[email or web address] http://[employer]/[facility] Blood specimen (specimen) 05/28/2014 9:00 AM EST [...] MD HEMATOLOGY ORDERABLE S Performing Organization Address City/[facility]/ZIP Co de Phone Number CERNER MILLENNIUM [...] S Alek Burciaga MD HEMATOLOGY ORDERABLE S [facility] * (ABNORMAL) Basic Metabolic Panel (non-fasting) (05/27/2014 5:30 AM EST) [facility] Glucose 81 60 - 199 mg/dL CERNER MILLENNIUM Comment:Diabetes: >=200 mg/d L plus symptoms Blood Urea Nitrogen 4(L) 8 - 18 mg/dL CERNER MILLENNIUM Creatinine 0.21(L) 0.70 - 1.20 mg/dL CERNER MILLENNIUM Comment: Please note that the pediatric reference intervals supplied above were not validated at [facility]. Results from pediatric patients should be interpreted [...] the following links into your internet browser. [email or web address]://[email or web address] [email or web address] Blood specimen (specimen) 05/27/2014 5:30 AM EST 05/27/2014 5:39 AM EST Narrative Resulting Agency Comment Spec In Lab Freddy Burciaga MD CHEMISTRY ORDERABLES [facility] * Anaerobic Culture (05/26/2014 5:30 PM EST) Anaerobic Culture ? Patient Name: TANA SHELTON ? Ordered By: Freddy BURCIAGA ? MR#: [id number] ?LOC: ??PA ? /Sex: ??1995 (18 years), [...] ? Ordered By: Freddy BURCIAGA ? MR#: [id number] ?LOC: ??PA ? /Sex: ??1995 (18 years), [...] ? Patient: CRISTO SHELTONLIE S ? MR#: [id number] ? S=Susceptible ??I=Intermediate ??R=Resistant ??NA=Not Applicable ? DDS=Dose dependent-suscept ible ??NS=Non-suscepti ble ? [facility] Structure of back of trunk (body structure) 05/26/2014 5:30 PM EST 05/26/2014 5:41 PM EST Comment:LUMBAR Narrative Resulting Agency Comment Spec In Lab Freddy Burciaga MD MICROBIOLOGY - GENER AL ORDERABLES [facility] * Anaerobic Culture (05/26/2014 5:30 PM EST) Anaerobic Culture ? Patient Name: TANA SHELTON ? Ordered By: Freddy BURCIAGA ? MR#: [id number] ?LOC: ??PA ? /Sex: ??1995 (18 years), [...] ? Ordered By: Freddy BURCIAGA ? MR#: [id number] ?LOC: ??PA ? /Sex: ??1995 (18 years), [...] plates. ? Patient: TANA SHELTON ? MR#: [id number] ? SUSCEPTIBILITY RESULTS ? Coagulase negative Staphylococcus [...] (1) ? Gentamicin is not appropriate for [place]-therapy. ? (2) ? Penicillin resistant, Nafcillin susceptible [...] - GENER AL ORDERABLES Performing Organization Address City/State/[facility] Co de Phone Number [facility] * Anaerobic Culture (05/26/2014 5:30 PM EST) Anaerobic Culture ? Patient Name: TANA SHELTON ? Ordered By: Freddy BURCIAGA ? MR#: [id number] ?LOC: ??[place] ? /Sex: ??1995 (18 years), [...] MICROBIOLOGY - GENER AL ORDERABLES [facility] * Tissue culture (05/26/2014 5:30 PM EST) Tissue Culture ? Patient Name: TANA SHELTON ? Ordered By: Freddy BURCIAGA ? MR#: [id number] ?LOC: ??PA ? /Sex: ??1995 (18 years), [...] Screen Interp Negative CERNER MILLENNIUM Expires at [id number] on: [id number] CERNER MILLENNIUM Blood specimen (specimen) [...] prior fragment retrieval. S Alek Burciaga MD [facility] CT ORDERABLES * CT lumbar spine reconstruction [...] Panel (non-fasting) (05/26/2014 4:15 AM EST) [facility] Glucose 88 60 - 199 mg/dL CERNER MILLENNIUM Comment:Diabetes: >=200 mg/d L plus symptoms Blood Urea Nitrogen 6(L) 8 - 18 mg/dL CERNER MILLENNIUM Creatinine 0.28(L) 0.70 - 1.20 mg/dL CERNER MILLENNIUM Comment: Please note that the pediatric reference intervals supplied above were not validated at [facility]. Results from pediatric patients should be interpreted [...] the following links into your internet browser. [email or web address]://[email or web address] [email or web address] Blood specimen (specimen) 05/26/2014 4:15 AM EST 05/26/2014 4:35 AM EST Narrative Resulting Agency Comment Spec In Lab S Alek Burciaga MD CHEMISTRY ORDERABLES LINDA BASHIR * Place PICC Line: Contact Vascular Access Page [phone] (05/25/2014 4:01 PM EST) Narrative [place] [...] to the planned procedure. Hand Hygiene: The package reinspector did perform hand hygiene prior to line insertion. Catheter type: PICC Lot number: [id number] Procedure Technique: Skin was prepped with chlorhexidine. [...] focal. COMPARISON: Scoliosis radiographs from 12/16/2011 FINDINGS: [employer] views demonstrate severe rightward scoliotic deformity centered [...] No gross collections in the cervical spine. [employer] coronal image 8 of series 8 demonstrates [...] inf,focal. COMPARISON: Scoliosis radiographs from 12/16/2011 FINDINGS: [employer] views demonstrate severe rightward scoliotic deformity centered [...] abnormalities. No grosscollections in the cervical spine. [employer] coronal image 8 of series 8 demonstrates [...] attending Authorizing Provider Result Bala Burciaga MD [facility] MRI ORDERABLES * MRI thoracic spine without contrast (05/25/2014 1:26 PM EST) Anatomical Region Laterality Modality T-spine Magnetic Resonan ce 05/25/2014 1:26 PM EST Narrative 05/25/2014 4:10 PM EST See accession #[id number] for dictation of this study. This report was reviewed by Andrade Rebolledo MD at 05/25/2014 4:05 PM Film and interpretation reviewed by the attending Procedure Note Andrade Roth MD - 05/25/2014 See accession #[id number] for dictation of this study. This report was reviewed by Andrade Rebolledo MD at 05/25/2014 4:05 PM Film and interpretation reviewed by the attending Alek Sinha ANIMAL GENETICIST IMG MRI ORDERABLES * Differential, Automated (05/25/2014 [...] Panel (non-fasting) (05/25/2014 5:00 AM EST) [facility] Glucose 87 60 - 199 mg/dL CERNER MILLENNIUM Comment:Diabetes: >=200 mg/d L plus symptoms Blood Urea Nitrogen 6(L) 8 - 18 mg/dL CERNER MILLENNIUM Creatinine 0.27(L) 0.70 - 1.20 mg/dL CERNER MILLENNIUM Comment: Please note that the pediatric reference intervals supplied above were not validated at [facility]. Results from pediatric patients should be interpreted [...] the following links into your internet browser. [email or web address] Blood specimen (specimen) 05/25/2014 5:00 AM EST [...] MD HEMATOLOGY ORDERABLE S Performing Organization Address [facility]/ZIP Co de Phone Number LINDA TOMASENNIUM [...] Metabolic Panel (non-fasting) (05/24/2014 12:42 PM EST) [facility] Glucose 78 60 - 199 mg/dL CERNER MILLENNIUM Comment:Diabetes: >=200 mg/d L plus symptoms Blood Urea Nitrogen 4(L) 8 - 18 mg/dL CERNER MILLENNIUM Comment:result rechecked-f Creatinine 0.39(L) 0.70 - 1.20 mg/dL CERNER MILLENNIUM Comment: Please note that the pediatric reference intervals supplied above were not validated at [facility]. Results from pediatric patients should be interpreted [...] the following links into your internet browser. [email or web address] Blood specimen (specimen) 05/24/2014 12:42 PM EST 05/24/2014 12:42 PM EST Narrative Resulting Agency Comment Spec In Lab S Alek Burciaga MD CHEMISTRY ORDERABLES [facility] * Vancomycin, trough (05/24/2014 12:29 PM EST) [...] Burciaga MD CHEMISTRY ORDERABLES Performing Organization Address [facility] de Phone Number [...] Burciaga MD CHEMISTRY ORDERABLES Performing Organization Address [facility] Co [...] Smith MD CHEMISTRY ORDERABLES Performing Organization Address [facility]/ZIP Co de Phone Number [facility] * Magnesium (05/22/2014 12:45 [...] Smith MD CHEMISTRY ORDERABLES Performing Organization Address [facility] Co de Phone Number CERNER THOMENNIUM * Amylase (05/22/2014 12:45 PM EST) Amylase 89 28 - 100 unit/L CERNER MILLENNIUM Blood specimen (specimen) 05/22/2014 12:45 PM EST 05/22/2014 1:03 PM EST Narrative Resulting Agency Comment Spec In Lab Lucho Smith MD CHEMISTRY ORDERABLES Performing Organization Address [facility] de Phone Number CERNER MILLENNIUM [...] supplied above were not validated at [facility]. Results from pediatric patients should be interpreted [...] the following links into your internet browser. [email or web address] Blood specimen (specimen) 05/22/2014 12:45 PM EST 05/22/2014 1:03 PM EST Narrative Resulting Agency Comment Spec In Lab Lucho Smith MD CHEMISTRY ORDERABLES [facility] * Differential, Automated (05/22/2014 [...] MD HEMATOLOGY ORDERABLE S Performing Organization Address [facility] Co [...] Burciaga MD CHEMISTRY ORDERABLES Performing Organization Address [facility] de Phone Number LINDA BASHIR * (ABNORMAL) Basic Metabolic Panel (non-fasting) (05/22/2014 6:10 AM EST) Glucose 86 60 - 199 mg/dL [facility] Comment:Diabetes: >=200 mg/d L plus symptoms Blood Urea Nitrogen 3(L) 8 - 18 mg/dL [facility] Creatinine 0.27(L) 0.70 - 1.20 mg/dL [facility] Comment: Please note that the pediatric reference intervals supplied above were not validated at [facility]. Results from pediatric patients should be interpreted in conjunction to the patient's age, height and muscle mass. Sodium 141 135 - 145 mmol/L [facility] Potassium 2.9(Criti dean) 3.5 - [...] the following links into your internet browser. [email or web address]://[email or web address] [email or web address] Blood specimen (specimen) 05/22/2014 6:10 AM EST [...] supplied above were not validated at [facility]. Results from pediatric patients should be interpreted [...] the following links into your internet browser. http://[email or web address] [email or web address] Blood specimen (specimen) 05/21/2014 4:23 AM EST 05/21/2014 4:38 AM EST Narrative Resulting Agency Comment Spec In Lab Freddy Burciaga MD CHEMISTRY ORDERABLES [facility]DA [facility] * Photograph Tinter Culture (05/20/2014 10:01 PM EST) Photograph Tinter Culture ? Patient Name: TANA SHELTON ? Ordered By: Freddy BURCIAGA ? MR#: [id number] ?LOC: ??[place] ? /Sex: ??1995 (18 years), ? Female ? PROCEDURE: Photograph Tinter Culture ?SOURCE: Other ? COLLECTED: 05/20/2014 22:01 [...] ? Ordered By: Freddy BURCIAGA ? MR#: [id number] ?LOC: ??[place] ? /Sex: ??1995 (18 years), [...] ? Ordered By: Freddy BURCIAGA ? MR#: [id number] ?LOC: ??[place] ? /Sex: ??1995 (18 years), [...] ? Patient: TANA SHELTON S ? MR#: [id number] ? S=Susceptible ??I=Intermediate ??R=Resistant ??NA=Not Applicable ? DDS=Dose dependent-suscept ible ??NS=Non-suscepti ble ? [facility] MILLENNIUM Structure of back of trunk (body structure) 05/20/2014 9:25 PM EST 05/20/2014 10:12 PM EST Comment:LUMBAR WOUND CULTURE #2 Narrative Resulting Agency Comment Spec In Lab S Alek Burciaga MD MICROBIOLOGY - GENER AL ORDERABLES Performing Organization Address [facility] de Phone Number LINDA BASHIR * Anaerobic Culture (05/20/2014 8:20 PM EST) Anaerobic Culture ? Patient Name: TANA SHELTON ? Ordered By: Freddy BURCIAGA ? MR#: [id number] ?LOC: ??[place] ? /Sex: ??1995 (18 years), [...] - GENER AL ORDERABLES Performing Organization Address [facility]/State/ZIP Co de Phone Number LINDA BASHIR * Tissue culture (05/20/2014 8:20 PM EST) Tissue Culture ? Patient Name: TANA SHELTON ? Ordered By: Freddy BURCIAGA ? MR#: [id number] ?LOC: ??[place] ? /Sex: ??1995 (18 years), [...] ? Ordered By: BELKIS LOUIE ? MR#: [id number] ?LOC: ??[place] ? /Sex: ??1995 (18 years), ? Female ? PROCEDURE: Urine Culture ?SOURCE: [facility] ? COLLECTED: 05/20/2014 18:46 ? STARTED: [...] - GENER AL ORDERABLES Performing Organization Address City/[facility]/ZIP Co de Phone Number LINDA KEMPIUM [...] Urine Dipstick Hazy(A) Clear CERNER MILLENNIUM Specific [place] Urine Automated 1.026 1.002 - 1.030 CERNER [...] Louie MD URINE ORDERABLES Performing Organization Address City/[facility]/ZIP Co de Phone Number LINDA KEMPIUM * L-Lactate2 Whole Blood (05/20/2014 6:17 PM EST) Lactate WB 1.6 0.5 - 2.2 mmol/L LINDA BASHIR Blood specimen (specimen) 05/20/2014 6:17 PM EST 05/20/2014 6:17 PM EST Belkis Louie MD CHEMISTRY ORDERABLES [facility] * Blood culture (05/20/2014 6:00 PM EST) Blood Culture ? Patient Name: TANA SHELTON ? Ordered By: BELKIS LOUIE ? MR#: [id number] ?LOC: ??[place] ? /Sex: ??1995 (18 years), [...] Louie MD CHEMISTRY ORDERABLES Performing Organization Address City/[facility]/ZIP Co de Phone Number CERALIN TOMASENNIUM [...] ? Ordered By: BELKIS LOUIE ? MR#: [id number] ?LOC: ??[place] ? /Sex: ??1995 (18 years), [...] ? No growth at 4 days. ? [facility] Blood specimen (specimen) STRUCTURE OF LEFT HAND / Unknown 05/20/2014 5:15 PM EST 05/20/2014 7:17 PM EST Comment:HOLD UNTIL MD HULL Narrative Resulting Agency Comment Spec In Lab Belkis Louie MD MICROBIOLOGY - BLOOD ORDERABLES [facility] * Glucose, random (05/20/2014 5:15 PM EST) Glucose 81 60 - 199 mg/dL [facility] Comment:Diabetes: >=200 mg/d L plus symptoms Blood specimen (specimen) 05/20/2014 5:15 PM EST 05/20/2014 5:31 PM EST Narrative Resulting Agency Comment Spec In Lab Belkis Louie MD CHEMISTRY ORDERABLES Performing Organization Address [facility] de Phone Number [facility] * (ABNORMAL) Creatinine (05/20/2014 5:15 PM EST) Creatinine 0.37(L) 0.70 - 1.20 mg/dL [facility] Comment: Please note that the pediatric reference intervals supplied above were not validated at [facility]. Results from pediatric patients should be interpreted in conjunction to the patient's age, height and muscle mass. Est Glomerular Filtration Rate >60 >=60 [facility] Comment: This estimated GFR (eGFR) value was [...] the following links into your internet browser. [email or web address] Blood specimen (specimen) 05/20/2014 5:15 PM EST 05/20/2014 5:31 PM EST Narrative Resulting Agency Comment Spec In Lab Belkis Louie MD CHEMISTRY ORDERABLES Performing Organization Address [facility] de Phone Number [facility] * BUN (05/20/2014 5:15 PM EST) Blood Urea Nitrogen 9 8 - 18 mg/dL [facility] Blood specimen (specimen) 05/20/2014 5:15 PM EST 05/20/2014 5:31 PM EST Narrative Resulting Agency Comment Spec In Lab Belkis Louie MD CHEMISTRY ORDERABLES Performing Organization Address [facility] Co [...] Louie MD CHEMISTRY ORDERABLES Performing Organization Address [facility] Co [...] Nely Boss, Indication for (Active or Suspected): TONGUE TRIMMER/Meningitis 0616 (Given - Provider: Linsey Mcintyre RN)[id number] [...] Routine documented in this encounter Care Teams Technical Analyst Relationship Specialty Start Date End Date Naina Lindsey MD [address] [place] [address] PCP - General 03/19/10 08/25/16 documented as of this encounter
--- OUTSIDE RECORDS SUMMARY | 2023-12-29 14:10 | XMS_ITS | Encounter Summary ---
Author Organization [facility] [place] [place] [address] Care Team Providers Care Shade Cutter Name Role Phone Naina Lindsey MD Primary Care Provider [phone] Encounter Details Date Type Department Care Team (Late st Contact Info) Description 05/23/2014 External Results [place] [phone] Unknown None Social History Tobacco Use Types [...] PM EST Office Visit [place] [phone] Hollie Ambriz MD [facility] [place] [address] documented as of this encounter Procedures Procedure Name Priority Date/Time Associated Diagnosis Comments ACCOUNTING RECRUITER Routine 05/21/2014 documented in this encounter Results * site monitor (05/21/2014) Unknown GENERAL SUPPLY ORDER MYRANDA documented in this encounter Visit Diagnoses Not on filedocumented in this encounter Care Teams Shade Cutter Relationship Specialty Start Date End Date Naina Lindsey MD [address] [place] [address] PCP - General 03/19/10 08/25/16 documented as of this encounter
--- OUTSIDE RECORDS SUMMARY | 2023-12-29 14:11 | XMS_ITS | Encounter Summary ---
Author Organization [facility] [place] [address] Care Team Providers Care Garbage Worker Name Role Phone Naina Lindsey MD Primary Care Provider [phone] Encounter Details Date Type Department Care Team (Late st Contact Info) Description 07/08/2012 Orders Only [place] [phone] Bigg Dunbar MD [facility] [place] [address] Spasticity (Primary Dx) Social History Tobacco Use [...] [place] [phone] Hollie Ambriz MD [facility] [place] [address] documented as of this encounter Visit Diagnoses Diagnosis Spasticity- Primary Abnormal involuntary movements documented in this encounter Care Teams Garbage Worker Relationship Specialty Start Date End Date Naina Lindsey MD [address] [place] [place] [address] [place] [address] PCP - General 03/19/10 08/25/16 documented as of this encounter
--- OUTSIDE RECORDS SUMMARY | 2023-12-29 14:11 | XMS_ITS | Encounter Summary ---
Author Organization [facility] [place] [address] Care Team Providers Care Wire Insulator Name Role Phone Naina Lindsey MD Primary Care Provider [phone] Encounter Details Date Type Department Care Team (Late st Contact Info) Description 01/05/2012 Orders [place] [address] Christiano Floyd MD [facility] [place] [address] Spasticity (Primary Dx) Social History [...] Office [place] [address] Hollie Ambriz MD [facility] [place] [address] documented as of this encounter Visit Diagnoses Diagnosis Spasticity- Primary Abnormal involuntary movements documented in this encounter Care Teams Wire Insulator Relationship Specialty Start Date End Date Naina Lindsey MD [address] [place] [address] [place] [address] PCP - General 03/19/10 08/25/16 documented as of this encounter
--- OUTSIDE RECORDS SUMMARY | 2023-12-29 14:11 | XMS_ITS | Encounter Summary ---
[place] [address] Care Team Providers Care Flap Maker Name Role Phone Naina Lindsey MD Primary Care Provider [phone] Encounter Details Date Type Department Care Team (Late st Contact Info) Description 08/01/2012 Notes [place] [phone] Chelsea Alva RN Social History Tobacco Use [...] PM EST Office [place] [address] Hollie Ambriz MD [facility] [place] [address] documented as of this encounter Visit Diagnoses Not on filedocumented in this encounter Care Teams Flap Maker Relationship Specialty Start Date End Date Naina Lindsey MD [address] [place] [address] [place] [address] PCP - General 03/19/10 08/25/16 documented as of this encounter
--- OUTSIDE RECORDS SUMMARY | 2023-12-29 14:11 | XMS_ITS | Encounter Summary ---
Author Organization [facility] [place] [address] Care Team Providers Care Rabbit Breeder Name Role Phone Naina Lindsey MD Primary Care Provider [phone] Encounter Details Date Type Department Care Team (Late st Contact Info) Description 12/21/2013 1:30 PM EDT Ancillary Procedure [place] [phone] Chuckie Mayfield MD [facility] [place] [address] Social History Tobacco Use Types Packs/Day Years [...] PM EST Office [place] [address] Hollie Ambriz MD [facility] [place] [address] documented as of this encounter Procedures Procedure Name Priority Date/Time Associated Diagnosis Comments FILM LIBRARY STORAGE ONLY DX UPPER EXTREMITY Routine 12/21/2013 1:30 PM EDT documented in this encounter Results * Film Library- Storage Only DX Upper Extremity (12/21/2013 1:30 PM EDT) 08/10/2023 3:14 PM EDT Narrative [facility] - 08/10/2023 3:14 PM EDT This exam is auto-finalizing. It's purpose is for storage only. Chuckie Mayfield MD IMG FILM LIBRARY ORD ERABLES [place], [place] documented in this encounter Visit Diagnoses Not on filedocumented in this encounter Care Teams Rabbit Breeder Relationship Specialty Start Date End Date Naina Lindsey MD [address] [place] [address] PCP - General 03/19/10 08/25/16 documented as of this encounter
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
--- OUTSIDE RECORDS SUMMARY | 2023-12-29 14:11 | XMS_ITS | Encounter Summary ---
Author Organization [facility] [place] [address] Care Team Providers Care Manager Radiation Name Role Phone Naina Lindsey MD Primary Care Provider [phone] Encounter Details Date Type Department Care Team (Late st Contact Info) Description 03/03/2014 External [place] [address] Donnell Dotson MD [facility] [place] [address] Social History Tobacco Use Types [...] PM EST Office [place] [address] Hollie Ambriz MD [facility] [place] [address] documented as of this encounter Procedures Procedure Name Priority Date/Time Associated Diagnosis Comments IMPLANTABLE DEVICES SCAN Routine 02/28/2014 8:00 AM EST IMPLANTABLE DEVICES SCAN Routine 02/15/2014 8:41 AM EDT IMPLANTABLE DEVICES SCAN Routine 02/09/2014 8:42 AM EDT IMPLANTABLE DEVICES SCAN Routine 01/25/2014 9:19 AM EDT documented in this encounter Visit Diagnoses Not on filedocumented in this encounter Care Teams Manager Radiation Relationship Specialty Start Date End Date Naina Lindsey MD [address] [place] [address] PCP - General 03/19/10 08/25/16 documented as of this encounter
--- OUTSIDE RECORDS SUMMARY | 2023-12-29 14:11 | XMS_ITS | Encounter Summary ---
Author Organization [facility] [place] [address] Care Team Providers Care Intelligence Applications Name Role Phone Naina Lindsey MD Primary Care Provider [phone] Encounter Details Date Type Department Care Team (Late st Contact Info) Description 03/10/2014 Orders Only [place] [address] Alek Sinha, [facility] [place] [address] Pre-op chest exam; Pre-op evaluation Social History [...] PM EST Office [place] [address] Hollie Ambriz MD [facility] [place] [address] documented as of this encounter Visit Diagnoses Diagnosis Pre-op chest exam Pre-operative respiratory examination Pre-op evaluation Preoperative examination, unspecified documented in this encounter Care Teams Intelligence Applications Relationship Specialty Start Date End Date Naina Lindsey MD [address] [place] [address] PCP - General 03/19/10 08/25/16 documented as of this encounter
--- OUTSIDE RECORDS SUMMARY | 2023-12-29 14:11 | XMS_ITS | Encounter Summary ---
Author Organization [facility] Address [facility] [place] [address] Care Team Providers Care Stevedoring Superintendent Name Role Phone Naina Lindsey MD Primary Care Provider Encounter Details Date Type Department Care Team (Latest Contact Info) Description 12/16/2011 12:15 PM EDT - 12/16/2011 11:59 PM EDT Hospital Encounter XRay at [address] [place] [address] CLINIC, Joesph Sheikh Jr., MD [facility] [place]THOP[place]ED[place] [address] Aquiles Smith MD [facility] [place] [address] Scoliosis Discharge Disposition: Home Social History Tobacco [...] PM EST Office [place] [address] Hollie Ambriz MD [facility] DR [place] [address] documented as of this encounter Procedures Procedure [...] idiopathic documented in this encounter Care Teams Stevedoring Superintendent Relationship Specialty Start Date End Date Naina Lindsey MD [address] [place] [address] [place] [address] PCP - General 03/19/10 08/25/16 documented as of this encounter
--- OUTSIDE RECORDS SUMMARY | 2023-12-29 14:11 | XMS_ITS | Encounter Summary ---
Author Organization [facility] [place] [address] Care Team Providers Care Credit Representative Name Role Phone Naina Lindsey MD Primary Care Provider [phone] Encounter Details Date Type Department Care Team (Latest Contact Info) Description 05/03/2014 4:15 PM EST Procedure [place] [address] Donnell Dotson MD [facility] [place] [address] Presence of intrathecal baclofen pump Discharge Disposition: [...] Jamaal Samuel relatively soon. Donnell Dotson MD Alteration Manager of Anesthesiology Pain Management [facility] documented in this encounter Plan of Treatment Upcoming Encounters Date Type Department Care Team (Late st Contact Info) Description 06/02/2024 12:30 PM EST Office Visit [place] [address] Hollie Ambriz MD [facility] [place] [address] documented as of this encounter Visit Diagnoses Diagnosis Presence of intrathecal baclofen pump documented in this encounter Care Teams Credit Representative Relationship Specialty Start Date End Date Naina Lindsey MD [address] [place] [address] [place] [address] PCP - General 03/19/10 08/25/16 documented as of this encounter
--- OUTSIDE RECORDS SUMMARY | 2023-12-29 14:11 | XMS_ITS | Encounter Summary ---
Author Organization [facility] [place] [address] Care Team Providers Care Executive Business Coach Name Role Phone Naina Lindsey MD Primary Care Provider [phone] Reason for Visit * Reason Comments Pain Encounter Details Date Type Department Care Team (Latest Contact Info) Description 02/15/2014 4:45 PM EDT Procedure [place] [address] Donnell Dotson MD [facility] [place] [address] Spasticity; Abnormal involuntary movements(681.0) Discharge Disposition: Home Social History Tobacco Use [...] Office [place] [address] Hollie Ambriz MD [facility] [place] [address] documented as of this encounter Procedures Procedure [...] movements documented in this encounter Care Teams Executive Business Coach Relationship Specialty Start Date End Date Naina Lindsey MD [address] [place] [address] PCP - General 03/19/10 08/25/16 documented as of this encounter
--- OUTSIDE RECORDS SUMMARY | 2023-12-29 14:11 | XMS_ITS | Encounter Summary ---
Author Organization [facility] [address] Care Team Providers Care It Risk Analyst Name Role Phone Naina Lindsey MD Primary Care Provider [phone] Reason for Visit * Reason Comments Pain Pain, Chronic Encounter Details Date Type Department Care Team (Latest Contact Info) Description 03/15/2014 4:45 PM EST Procedure [place] [address] Donnell Dotson MD [facility] [place] [address] Presence of intrathecal baclofen pump; Abnormal involuntary movements(991.0) Discharge Disposition: Home Social History Tobacco Use [...] 25 mcg per day. Donnell Dotson MD Refrigeration Mechanic of Anesthesiology Pain [facility] documented in this encounter Plan of Treatment Upcoming Encounters Date Type Department Care Team (Late st Contact Info) Description 06/02/2024 12:30 PM EST Office [place] [address] Hollie Ambriz MD [facility] [place] [address] documented as of this encounter Procedures Procedure [...] 25 mcg per day. Donnell Dotson MD Refrigeration Mechanic of Anesthesiology [facility] Donnell Dotson MD PROCEDURE/MINOR SURG ICAL ORDERABLES documented in this encounter Visit Diagnoses Diagnosis Presence of intrathecal baclofen pump Abnormal involuntary movements(781.0) Abnormal involuntary movements documented in this encounter Care Teams It Risk Analyst Relationship Specialty Start Date End Date Naina Lindsey MD [address] [place] [address] PCP - General 03/19/10 08/25/16 documented as of this encounter
--- OUTSIDE RECORDS SUMMARY | 2023-12-29 14:11 | XMS_ITS | Encounter Summary ---
Author Organization [facility] [place] [address] Care Team Providers Care Atomic Process Engineer Name Role Phone Naina Lindsey MD Primary Care Provider [phone] Reason for Visit * Reason Onset Date Comments Medication Refill 11/08/2013 Encounter Details Date Type Department Care Team (Late st Contact Info) Description 11/08/2013 Refill [place] [address] Aida Carey, PACKING AND FINAL ASSEMBLY SUPERVISOR Social History Tobacco Use Types Packs/Day Years [...] PM EST Office Visit [place] [address] Hollie Ambriz MD [facility] [place] [address] documented as of this encounter Visit Diagnoses Not on filedocumented in this encounter Care Teams Atomic Process Engineer Relationship Specialty Start Date End Date Naina Lindsey MD [address] [place] [address] PCP - General 03/19/10 08/25/16 documented as of this encounter
--- OUTSIDE RECORDS SUMMARY | 2023-12-29 14:11 | XMS_ITS | Encounter Summary ---
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 Marino Glove Operator: Chelsea Alva Reason for Reprogramming or Adjustment: Refill Rate Adjustment: No Diagnosis: Spasticity Concomitant Medical Problems: Telemetry Pre-programming Reading: Drug: Baclofen Concentration: 1000 mcg/ml Dose Delivery per day: 195.1 mcg/day Infusion Mode: simple continuous Telemetry Post-programming Reading: Drug: Baclofen Concentration: 1000 mcg/ml (RX #[id number], discard date 08/28/12) Dose Delivery per day: 195.1 mcg/day Infusion Mode: simple continuous Pump Capacity: [] 20 ml [xxx] 40 ml Expected Stinnett Volume this visit: 2.6 ml Actual Stinnett Volume this visit: 3.5 ml Medication or [...] drapes were applied as provided with the [employer]Palztronic refill kit. A 22 gauge Persaud non-coring [...] instilled into the pump according to the vocational examiner's directions without difficulty. There was no evidence [...] PM EST Office Visit [place] [address] Hollie Ambriz MD [facility] [place] [address] documented as of this encounter Procedures Procedure [...] Intrathecal Pump Reprogramming or Adjustment Tana Cavazos [id number] Date of Programming/Adjustment: 07/22/12 Primary Family Practice Physician: ??Dr. Marino Glove Operator: ??Chelsea Alva Reason for Reprogramming or Adjustment: Refill Rate Adjustment: No Diagnosis: Spasticity Concomitant Medical Problems: ?? Telemetry Pre-programming Reading: ?? Drug: Baclofen Concentration: 1000 mcg/ml Dose Delivery per day: 195.1 mcg/day Infusion Mode: ?? simple continuous ?? Telemetry Post-programming Reading: ?? Drug: Baclofen Concentration: 1000 mcg/ml (RX #[id number], discard date 08/28/12) Dose Delivery per day: 195.1 mcg/day Infusion Mode: ?? simple continuous ? Pump Capacity: [] 20 ml [xxx] 40 ml Expected Stinnett Volume this visit: 2.6 ml Actual Stinnett Volume this visit: 3.5 ml Medication or [...] drapes were applied as provided with the GeoPalztronic refill kit. A 22 gauge Persaud non-coring [...] instilled into the pump according to the vocational examiner's directions without difficulty. There was no evidence [...] Intrathecal Pump Reprogramming or Adjustment Tana Cavazos [id number] Date of Programming/Adjustment: 07/22/12 Primary Family Practice Physician: Dr. Marino Glove Operator: Chelsea Alva Reason for Reprogramming or Adjustment: Refill Rate Adjustment: No Diagnosis: Spasticity Concomitant Medical Problems: Telemetry Pre-programming Reading: Drug: Baclofen Concentration: 1000 mcg/ml Dose Delivery per day: 195.1 mcg/day Infusion Mode: simple continuous Telemetry Post-programming Reading: Drug: Baclofen Concentration: 1000 mcg/ml (RX #[id number], discard date 08/28/12) Dose Delivery per day: 195.1 mcg/day Infusion Mode: simple continuous Pump Capacity: [] 20 ml [xxx] 40 ml Expected Stinnett Volume this visit: 2.6 ml Actual Stinnett Volume this visit: 3.5 ml Medication or [...] Sterile drapes were applied as provided withthe [employer] refill kit. A 22 gauge Persaud non-coring [...] Baclofen 1000 mcg/ml - 40 ml - RX#[id number] Given 07/22/2012 9:33 AM EDT 1 each documented in this encounter Care Teams Water Treatment Technician Relationship Specialty Start Date End Date Naina Lindsey MD [address] [place] [address] PCP - General 03/19/10 08/25/16 documented as of this encounter
--- OUTSIDE RECORDS SUMMARY | 2023-12-29 14:11 | XMS_ITS | Encounter Summary ---
Author Organization [facility] [place] [address] Care Team Providers Care Residential Electrician Name Role Phone Naina Lindsey MD Primary Care Provider [phone] Reason for Visit * Reason Comments Pain Management Encounter Details Date Type Department Care Team (Latest Contact Info) Description 04/25/2014 4:15 PM EST Procedure [place] [phone] Donnell Dotson MD [facility] [place] [address] Spasticity; Presence of intrathecal baclofen pump; Cerebral [...] PM EST Office Visit [place] [address] Hollie Ambriz MD [facility] [place] [address] documented as of this encounter Procedures Procedure [...] unspecified documented in this encounter Care Teams Residential Electrician Relationship Specialty Start Date End Date Naina Lindsey MD [address] [place] [address] PCP - General 03/19/10 08/25/16 documented as of this encounter
--- OUTSIDE RECORDS SUMMARY | 2023-12-29 14:11 | XMS_ITS | Encounter Summary ---
Author Organization [facility] [place] [address] Care Team Providers Care Client Service Administrator Name Role Phone Naina Lindsey MD Primary Care Provider [phone] Encounter Details Date Type Department Care Team (Late st Contact Info) Description 07/20/2012 Orders [place] [address] Bigg Dunbar MD [facility] [place] [place] [address] Social History Tobacco Use Types Packs/Day Years [...] PM EST Office Visit [place] [address] Hollie Ambriz MD [facility] DR INFECTIOUS DISEASE [place], [place] [phone] documented as of this encounter Visit Diagnoses Not on filedocumented in this encounter Care Teams Client Service Administrator Relationship Specialty Start Date End Date Naina Lindsey MD [address] [place] [address] PCP - General 03/19/10 08/25/16 documented as of this encounter
--- OUTSIDE RECORDS SUMMARY | 2023-12-29 14:11 | XMS_ITS | Encounter Summary ---
Author Organization [facility] [place] [address] Care Team Providers Care Fire Sprinkler Service Technician Name Role Phone Naina Lindsey MD Primary Care Provider [phone] Encounter Details Date Type Department Care Team (Latest Contact Info) Description 01/12/2012 11:15 AM EDT Procedure [place] [phone] Bigg Dunbar MD [facility] [place] [address] Abnormal involuntary movements (Primary Dx) Discharge Disposition: [...] Pump Reprogramming or Adjustment Tana S Dirk [id number] Date of Programming/Adjustment: January 12, 2012 Primary Manager Surgical: Dr. Lara Senior Environmental Engineer: Dr. Dunbar Reason for Reprogramming or Adjustment: Refill Rate Adjustment: No Diagnosis: Spasticity Concomitant Medical Problems: Telemetry Pre-programming Reading: Drug: Baclofen Concentration: 1000 mcg/ml Dose Delivery per day: 195.1 mcg/day Infusion Mode: simple continuous Telemetry Post-programming Reading: Drug: Baclofen Concentration: 1000 mcg/ml Dose Delivery per day: 195.1 mcg/day Infusion Mode: simple continuous Pump Capacity: [] 20 ml [xxx] 40 ml Expected [place] Volume this visit: 4 ml Actual [place] Volume this visit: 5 ml Medication or [...] instilled into the pump according to the grubber's directions without difficulty. There was no evidence [...] Farhana Lara MD Fellow, Pain Medicine Pager [phone] documented in this encounter Miscellaneous Notes * Miscellaneous - Delbert, Brainer - 01/15/2012 4:53 PM EDT documented in this encounter Plan of Treatment Upcoming Encounters Date Type Department Care Team (Late st Contact Info) Description 06/02/2024 12:30 PM EST Office Visit Infectious Disease at [facility] [place] [address] Hollie Ambriz MD [facility] [place] [address] documented as of this encounter Procedures Procedure Name Priority Date/Time Associated Diagnosis Comments INTRATHECAL PUMP REFILL Routine 01/12/2012 12:44 PM EDT Abnormal involuntary movements documented in this encounter Results * INTRATHECAL PUMP REFILL (01/12/2012 12:44 PM EDT) Narrative Farhana Lara - 01/12/2012 12:44 PM EDT Pain Medicine Intrathecal Pump Reprogramming or Adjustment Tana Cavazos [id number] Date of Programming/Adjustment: January 12, 2012 Primary Manager Surgical: ??Dr. Lara ?? Senior Environmental Engineer: ??Dr. Dunbar Reason for Reprogramming or Adjustment: [...] [] 20 ml [xxx] 40 ml Expected [place] Volume this visit: 4 ml Actual [place] Volume this visit: 5 ml Medication or [...] drapes were applied as provided with the Booster.lytronic refill kit. A 22 gauge Persaud non-coring [...] instilled into the pump according to the grubber's directions without difficulty. There was no evidence [...] Farhana Lara MD Fellow, Pain Medicine Pager [phone] Procedure Note Farhana Lara - 01/12/2012 12:43 PM EDT Pain Medicine Intrathecal Pump Reprogramming or Adjustment Tana Hayes Dirk [id number] Date of Programming/Adjustment: January 12, 2012 Primary Manager Surgical: Dr. Lara Senior Environmental Engineer: Dr. Dunbar Reason for Reprogramming or Adjustment: Refill Rate Adjustment: No Diagnosis: Spasticity Concomitant Medical Problems: Telemetry Pre-programming Reading: Drug: Baclofen Concentration: 1000 mcg/ml Dose Delivery per day: 195.1 mcg/day Infusion Mode: simple continuous Telemetry Post-programming Reading: Drug: Baclofen Concentration: 1000 mcg/ml Dose Delivery per day: 195.1 mcg/day Infusion Mode: simple continuous Pump Capacity: [] 20 ml [xxx] 40 ml Expected [place] Volume this visit: 4 ml Actual [place] Volume this visit: 5 ml Medication or [...] Sterile drapes were applied as provided withthe Booster.lytronic refill kit. A 22 gauge Persaud non-coring [...] Farhana Lara MD Fellow, Pain Medicine Pager [phone] Bigg Dunbar MD PROCEDURE/MINOR S URGICAL ORDERABLES [...] and Dose: Baclofen 1000 mcg/ml solution Lot [id number] Given 01/12/2012 12:38 PM EDT 1 each documented in this encounter Care Teams Fire Sprinkler Service Technician Relationship Specialty Start Date End Date Naina Lindsey MD [address] [facility] [place] [address] PCP - General 03/19/10 08/25/16 documented as of this encounter
--- OUTSIDE RECORDS SUMMARY | 2023-12-29 14:11 | XMS_ITS | Encounter Summary ---
Author Organization [facility] [place] [address] Care Team Providers Care Senior Systems Developer Name Role Phone Naina Lindsey MD Primary Care Provider [phone] Reason for Visit * Reason Comments Pain Management Encounter Details Date Type Department Care Team (Latest Contact Info) Description 02/28/2014 4:30 PM EST Procedure [place] [phone] Donnell Dotson MD [facility] [place] [address] Karen Early [facility] [place] [address] Traumatic brain injury, sequela (Primary Dx) Discharge [...] 02/28/2014 4:58 PM EST Tana Cavazos 02/28/2014 [id number] Intrathecal Pump Visit Tana Cavazos presents today [...] PM EST Office [place] [address] Hollie Ambriz MD [facility] [place] [place] [address] documented as of this encounter Visit Diagnoses Diagnosis Traumatic brain injury, sequela- Primary documented in this encounter Care Teams Senior Systems Developer Relationship Specialty Start Date End Date Naina Lindsey MD [address] [place] [address] [place] [address] PCP - General 03/19/10 08/25/16 documented as of this encounter
--- OUTSIDE RECORDS SUMMARY | 2023-12-29 14:11 | XMS_ITS | Encounter Summary ---
Author Organization [facility] [place] [address] Care Team Providers Care Wound/Ostomy Nurse Name Role Phone Naina Lindsey MD Primary Care Provider [phone] Encounter Details Date Type Department Care Team (Late st Contact Info) Description 12/22/2012 Orders [place] [address] Crhistiano Floyd MD [facility] [place] [address] Social History Tobacco Use Types Packs/Day Years [...] PM EST Office [place] [address] Hollie Ambriz MD [facility] [place] [address] documented as of this encounter Visit Diagnoses Not on filedocumented in this encounter Care Teams Wound/Ostomy Nurse Relationship Specialty Start Date End Date Naina Lindsey MD [address] [place] [address] [place] [address] PCP - General 03/19/10 08/25/16 documented as of this encounter
--- OUTSIDE RECORDS SUMMARY | 2023-12-29 14:11 | XMS_ITS | Encounter Summary ---
Author Organization [facility] Address [facility] [place] [address] Care Team Providers Care Negative Developer Name Role Phone Naina Lindsey MD Primary Care Provider [phone] Reason for Referral * Consultation (Routine) - Closed Specialty Diagnoses / Procedures Referred By Contac t Referred To Contact Pediatric Neurosurgery Diagnoses Baclofen pump failure, initial encounter Donnell Dotson MD [facility] [address] Jamaal Samuel MD [facility] [place] [address] Referral ID Status Reason Start Date Expiration Date V isits Requested Visits Authorized [id number] Closed Consult, Test & Treat 02/15/2014 08/14/2014 1 1 Encounter Details Date Type Department Care Team (Late st Contact Info) Description 02/15/2014 Orders [place] [address] Donnell Dotson MD [facility] [place] [id number] Baclofen pump failure, initial encounter Social History [...] PM EST Office Visit [place] [address] Hollie Ambriz MD [facility] [place] [address] Scheduled Referrals Name Type Priority Associated Diagnoses Order Schedule Referral to Pediatric Neurosurgery Outpatient Referral Routine Baclofen pump failure, initial encounter Ordered: 02/15/2014 documented as of this encounter Visit Diagnoses Diagnosis Baclofen pump failure, initial encounter documented in this encounter Care Teams Negative Developer Relationship Specialty Start Date End Date Naina Lindsey MD [address] [place] [address] PCP - General 03/19/10 08/25/16 documented as of this encounter
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
--- OUTSIDE RECORDS SUMMARY | 2023-12-29 14:11 | XMS_ITS | Encounter Summary ---
Author Organization [facility] [place] [address] Care Team Providers Care Leadership Program Associate Name Role Phone Naina Lindsey MD Primary Care Provider [phone] Reason for Visit * Reason Comments Other pump wean Encounter Details Date Type Department Care Team (Latest Contact Info) Description 02/09/2014 11:45 AM EDT Procedure [place] [address] Donnell Dotson MD [facility] [place] [address] Traumatic brain injury, sequela; Abnormal involuntary movements(591.0) [...] access to your electronic medical record at [facility] and the ability to communicate with [...] the instructions. Here is your activation code: [email or web address] Expires: 03/26/2014 12:29 PM Remember, my[facility] is NOT for urgent needs! Always dial 911 for medical emergencies. documented in this encounter Procedure Notes * Donnell Dotson MD - 02/09/2014 2:59 PM EDTAssociated Order(s): INTRATHECAL PUMP REPROGRAMMING Pre-Procedure Diagnose(s): Abnormal involuntary movements(781.0) Patient and mother coming today. Since he was last seen, the orthopedic surgeons and the rest of the team at [facility] have agreed that she no longer needs the intrathecal baclofen. She like to be tapered off the baclofen before the pump is basically no longer effective, 3 months from now. Looking at the [employer] website and calling the local Medtronic baclofen pump patient support representative, we decided to decrease her pump [...] EST Office Visit [place] [address] Hollie Ambriz MD [facility] [place] [address] documented as of this encounter Procedures Procedure [...] and the rest of the team at [facility] have agreed that she no longer needs the intrathecal baclofen. She like to be tapered off the baclofen before the pump is basically no longer effective, 3 months from now. Looking at the Medtr[employer] website and calling the local [employer]onic baclofen pump patient support representative, we decided to decrease her pump [...] and the rest of the team at [facility] haveagreed that she no longer needs the intrathecal baclofen. She like to betapered off the baclofen before the pump is basically no longer effective,3 months from now. Looking at the Medtr[employer] website and calling the local Medtronic baclofenpump patient support representative, we decided to decrease her pump [...] movements documented in this encounter Care Teams Leadership Program Associate Relationship Specialty Start Date End Date Naina Lindsey MD [address] [place] [address] PCP - General 03/19/10 08/25/16 documented as of this encounter
--- OUTSIDE RECORDS SUMMARY | 2023-12-29 14:11 | XMS_ITS | Encounter Summary ---
Author Organization [facility] [place] [address] Care Team Providers Care Prints And Drawings Curator Name Role Phone Naina Lindsey MD Primary Care Provider [phone] Encounter Details Date Type Department Care Team (Late st Contact Info) Description 02/27/2014 Telephone [place] [address] Donnell Dotson MD [facility] [place] [address] Social History Tobacco Use Types Packs/Day Years [...] PM EST Office [place] [address] Hollie Ambriz MD [facility] [place] [address] documented as of this encounter Visit Diagnoses Not on filedocumented in this encounter Care Teams Prints And Drawings Curator Relationship Specialty Start Date End Date Naina Lindsey MD [address] [place] [address] PCP - General 03/19/10 08/25/16 documented as of this encounter
--- OUTSIDE RECORDS SUMMARY | 2023-12-29 14:11 | XMS_ITS | Encounter Summary ---
Author Organization [facility] [place] [address] Care Team Providers Care Stationary Boiler Fireman Name Role Phone Naina Lindsey MD Primary Care Provider [phone] Encounter Details Date Type Department Care Team (Late st Contact Info) Description 05/03/2014 Unscheduled Encounter [place] [address] Alek Sinha, ORTHOPEDIC CAST SPECIALIST [facility] [place] [address] Spasticity Social History Tobacco Use Types Packs/Day [...] her tone. She has been seen at [facility] by Barron Dotson who has weaned the [...] PM EST Office Visit [place] [address] Hollie Ambriz MD [facility] [place] [address] documented as of this encounter Visit Diagnoses Diagnosis Spasticity Abnormal involuntary movements documented in this encounter Care Teams Stationary Boiler Fireman Relationship Specialty Start Date End Date Naina Lindsey MD [address] [place] [address] PCP - General 03/19/10 08/25/16 documented as of this encounter
--- OUTSIDE RECORDS SUMMARY | 2023-12-29 14:11 | XMS_ITS | Encounter Summary ---
Author Organization [facility] [place] [address] Care Team Providers Care Plant Director Name Role Phone Naina Lindsey MD Primary Care Provider [phone] Reason for Visit * Reason Comments Cerebral Palsy Encounter Details Date Type Department Care Team (Latest Contact Info) Description 07/11/2011 8:30 AM EDT Procedure [place] [address] Yudelka Coyne MD [facility] [place] [place] [address] Spasticity (Primary Dx); Abnormal involuntary movements Discharge [...] Woods DO N [facility] [place] [address] Dept: [phone] * Yudelka Coyne MD - 07/11/2011 10:56 AM EDT INTRATHECAL PUMP REFILL PROCEDURE NOTE WITH REPROGRAMMING Primary Supervisor Labor Gang: Dr. Steffany Coyne Tack Welder: Lucia Mazariegos LPN Reason for Reprogramming: refill [...] drapes were applied as provided with the mafringue.comtronic refill kit. A 22 gauge Persaud non-coring [...] instilled into the pump according to the radiochemical technician's directions without difficulty. There was no [...] Office [place] [address] Hollie Ambriz MD [facility] [place] [address] Scheduled Orders Name Type Priority Associated Diagnoses [...] each documented in this encounter Care Teams Plant Director Relationship Specialty Start Date End Date Naina Lindsey MD [address] [place] [address] PCP - General 03/19/10 08/25/16 documented as of this encounter
--- OUTSIDE RECORDS SUMMARY | 2023-12-29 14:11 | XMS_ITS | Encounter Summary ---
Author Organization [facility] [place] [address] Care Team Providers Care Senior Sharepoint Architect Name Role Phone Lorna Bal APRN Primary Care Provider [phone] Encounter Details Date Type Department Care Team (Late st Contact Info) Description 12/21/2013 Interpretation Only [place] [address] Chuckie Mayfield MD [facility] [place] [address] Social History Tobacco Use Types Packs/Day Years [...] PM EST Office [place] [address] Hollie Ambriz MD [facility] [place] [address] documented as of this encounter Procedures Procedure Name Priority Date/Time Associated Diagnosis Comments FILM LIBRARY STORAGE ONLY DX WRIST Routine 12/21/2013 1:40 PM EDT documented in this encounter Results * Film Library- Storage Only DX Wrist (12/21/2013 1:40 PM EDT) 08/10/2023 3:14 PM EDT Narrative [facility] - 08/10/2023 3:14 PM EDT This exam is auto-finalizing. It's purpose is for storage only. Chuckie Mayfield MD IMG FILM LIBRARY ORD ERABLES [place], [place] documented in this encounter Visit Diagnoses [...] documented as of this encounter Care Teams Senior Sharepoint Architect Relationship Specialty Start Date End Date Lorna Bal APRN [address] [place] [address] PCP - General Family Medicine 05/27/18 documented as of this encounter
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
--- OUTSIDE RECORDS SUMMARY | 2023-12-29 14:11 | XMS_ITS | Encounter Summary ---
Author Organization Formerly [facility] [place] [address] Care Team Providers Care Security Test Engineer Name Role Phone Naina Lindsey MD Primary Care Provider [phone] Reason for Visit * Reason Onset Date Comments Blindness 12/27/2011 Encounter Details Date Type Department Care Team (Late st Contact Info) Description 12/27/2011 [place] [address] Aquiles Smith MD [facility] [place] [address] Blindness Social History Tobacco Use Types Packs/Day [...] PM EST Office [place] [address] Hollie Ambriz MD [facility] [place] [address] documented as of this encounter Visit Diagnoses Not on filedocumented in this encounter Care Teams Security Test Engineer Relationship Specialty Start Date End Date Naina Lindsey MD [address] [place] [address] [place] [address] PCP - General 03/19/10 08/25/16 documented as of this encounter
--- OUTSIDE RECORDS SUMMARY | 2023-12-29 14:11 | XMS_ITS | Encounter Summary ---
Author Organization [facility] [place] [address] Care Team Providers Care Ton Container Shipper Name Role Phone Naina Lindsey MD Primary Care Provider [phone] Encounter Details Date Type Department Care Team (Late st Contact Info) Description 07/12/2012 Telephone [place] [address] Aniket Heredia MD [facility] [place] [address] Social History Tobacco Use Types Packs/Day Years [...] PM EST Office [place] [address] Hollie Ambriz MD [facility] [place] [address] documented as of this encounter Visit Diagnoses Not on filedocumented in this encounter Care Teams Ton Container Shipper Relationship Specialty Start Date End Date Naina Lindsey MD [address] [place] [address] PCP - General 03/19/10 08/25/16 documented as of this encounter
--- OUTSIDE RECORDS SUMMARY | 2023-12-29 14:11 | XMS_ITS | Encounter Summary ---
Author Organization [facility] [place] [address] Care Team Providers Care Certified Drug Counselor Name Role Phone Naina Lindsey MD Primary Care Provider [phone] Encounter Details Date Type Department Care Team (Late st Contact Info) Description 06/30/2011 Orders Only [place] [address] Boyd Dillon MD [facility] [place] [address] Spasticity (Primary Dx) Social History Tobacco Use [...] PM EST Office [place] [address] Hollie Ambriz MD [facility] [place] [address] documented as of this encounter Visit Diagnoses Diagnosis Spasticity- Primary Abnormal involuntary movements documented in this encounter Care Teams Certified Drug Counselor Relationship Specialty Start Date End Date Naina Lindsey MD [address] [place] [address] [place] [address] PCP - General 03/19/10 08/25/16 documented as of this encounter
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
--- OUTSIDE RECORDS SUMMARY | 2023-12-29 14:11 | XMS_ITS | Encounter Summary ---
Author Organization [facility] [place] [address] Care Team Providers Care Manager Fiber Name Role Phone Naina Lindsey MD Primary Care Provider [phone] Encounter Details Date Type Department Care Team (Late st Contact Info) Description 06/16/2013 Orders [place] [address] Christiano Floyd MD [facility] [place] [address] Social History Tobacco Use Types Packs/Day Years [...] PM EST Office Visit [place] [address] Hollie Ambriz MD [facility] [place] [address] documented as of this encounter Visit Diagnoses Not on filedocumented in this encounter Care Teams Manager Fiber Relationship Specialty Start Date End Date Naina Lindsey MD [address] [place] [address] [place] [address] PCP - General 03/19/10 08/25/16 documented as of this encounter
--- OUTSIDE RECORDS SUMMARY | 2023-12-29 14:11 | XMS_ITS | Encounter Summary ---
Author Organization [facility] [place] [address] Care Team Providers Care Cash Posting Representative Name Role Phone Lorna Bal APRN Primary Care Provider [phone] Encounter Details Date Type Department Care Team (Late st Contact Info) Description 12/21/2013 Interpretation Only [place] [address] Chuckie Mayfield MD [facility] ORTHOP[place] [address] Social History Tobacco Use Types Packs/Day Years [...] Office [place] [address] Hollie Ambriz MD [facility] DR [place] [address] documented as of this encounter Procedures Procedure Name Priority Date/Time Associated Diagnosis Comments FILM LIBRARY STORAGE ONLY DX UPPER EXTREMITY Routine 12/21/2013 1:30 PM EDT documented in this encounter Results * Film Library- Storage Only DX Upper Extremity (12/21/2013 1:30 PM EDT) 08/10/2023 3:14 PM EDT Narrative [facility] - 08/10/2023 3:14 PM EDT This exam is auto-finalizing. It's purpose is for storage only. Chuckie Mayfield MD IMG FILM LIBRARY ORD ERABLES [place], [place] documented in this encounter Visit Diagnoses [...] documented as of this encounter Care Teams Cash Posting Representative Relationship Specialty Start Date End Date Lorna Bal APRN [address] [place] [address] PCP - General Family Medicine 05/27/18 documented as of this encounter
--- OUTSIDE RECORDS SUMMARY | 2023-12-29 14:11 | XMS_ITS | Encounter Summary ---
Author Organization Counts Include [facility] Address [facility] [place] [address] Care Team Providers Care Set Up Mold Technician Name Role Phone Naina Lindsey MD Primary Care Provider [phone] Reason for Visit * Reason Comments Follow-up PRE-SURGERY QUESTION S Encounter Details Date Type Department Care Team (Late st Contact Info) Description 05/03/2014 3:00 PM EST Follow-[place] [address] Jamaal Samuel MD [facility] DR [place] [address] Presence of intrathecal baclofen pump Discharge Disposition: [...] pump placed for increased extremity tone at [facility] in 2007 but mom believes [...] PM EST Office [place] [address] Hollie Ambriz MD [facility] [place] [address] documented as of this encounter Visit Diagnoses Diagnosis Presence of intrathecal baclofen pump documented in this encounter Care Teams Set Up Mold Technician Relationship Specialty Start Date End Date Naina Lindsey MD [address] [place] [address] [place] [address] PCP - General 03/19/10 08/25/16 documented as of this encounter
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
--- OUTSIDE RECORDS SUMMARY | 2023-12-29 14:11 | XMS_ITS | Encounter Summary ---
Author Organization [facility] [place] [address] Care Team Providers Care Grocery Clerk Selling Name Role Phone Naina Lindsey MD Primary Care Provider [phone] Encounter Details Date Type Department Care Team (Late st Contact Info) Description 07/08/2012 Orders [place] [address] Aniket Heredia MD [facility] [place] [address] Spasticity (Primary Dx) Social History [...] PM EST Office [place] [address] Hollie Ambriz MD [facility] [place] [address] documented as of this encounter Visit Diagnoses Diagnosis Spasticity- Primary Abnormal involuntary movements documented in this encounter Care Teams Grocery Clerk Selling Relationship Specialty Start Date End Date Naina Lindsey MD [address] [place] [address] PCP - General 03/19/10 08/25/16 documented as of this encounter
--- OUTSIDE RECORDS SUMMARY | 2023-12-29 14:11 | XMS_ITS | Encounter Summary ---
Author Organization [facility] [place] [address] Care Team Providers Care Milk Processing Worker Name Role Phone Naina Lindsey MD Primary Care Provider [phone] Encounter Details Date Type Department Care Team (Late st Contact Info) Description 12/21/2013 1:40 PM EDT Ancillary Procedure [place] [address] Chuckie Mayfield MD [facility] [place] [address] Social History Tobacco Use Types Packs/Day Years [...] PM EST Office [place] [address] Hollie Ambriz MD [facility] [place] [address] documented as of this encounter Procedures Procedure Name Priority Date/Time Associated Diagnosis Comments FILM LIBRARY STORAGE ONLY DX WRIST Routine 12/21/2013 1:40 PM EDT documented in this encounter Results * Film Library- Storage Only DX Wrist (12/21/2013 1:40 PM EDT) 08/10/2023 3:14 PM EDT Narrative [facility] - 08/10/2023 3:14 PM EDT This exam is auto-finalizing. It's purpose is for storage only. Chuckie Mayfield MD IMG FILM LIBRARY ORD ERABLES [place], [place] documented in this encounter Visit Diagnoses Not on filedocumented in this encounter Care Teams Milk Processing Worker Relationship Specialty Start Date End Date Naina Lindsey MD [address] [place] [address] PCP - General 03/19/10 08/25/16 documented as of this encounter
--- OUTSIDE RECORDS SUMMARY | 2023-12-29 14:11 | XMS_ITS | Encounter Summary ---
Author Organization [facility] [place] [address] Care Team Providers Care Employee Development Director Name Role Phone Naina Lindsey MD Primary Care Provider [phone] Encounter Details Date Type Department Care Team (Late st Contact Info) Description 07/12/2012 Telephone [place] [address] Aniket Heredia MD [facility] [place] [address] Social History Tobacco Use Types Packs/Day Years [...] her child evaluated in the ED at [facility] over the weekend and today again at her alley tender's office. She reports that Tana seems to [...] this plan. Aniket Heredia MD Pain fellow [facility] documented in this encounter Plan of Treatment Upcoming Encounters Date Type Department Care Team (Late st Contact Info) Description 06/02/2024 12:30 PM EST Office [place] [address] Hollie Ambriz MD [facility] [place] [address] documented as of this encounter Visit Diagnoses Not on filedocumented in this encounter Care Teams Employee Development Director Relationship Specialty Start Date End Date Naina Lindsey MD [address] [place] [address] [place] [address] PCP - General 03/19/10 08/25/16 documented as of this encounter
--- OUTSIDE RECORDS SUMMARY | 2023-12-29 14:11 | XMS_ITS | Encounter Summary ---
Author Organization [facility] [place] [address] Care Team Providers Care Drug And Alcohol Treatment Specialist Name Role Phone Naina Lindsey MD Primary Care Provider [phone] Encounter Details Date Type Department Care Team (Late st Contact Info) Description 05/11/2014 7:31 AM EST Anesthesia [place] [address] Danielle Kwan MD [facility] [place] [address] Anesthesia Record Procedure Summary Procedure Name Responsible [...] 0731; metacarpal vein right (top of hand); liic-kcr-tkoqer catheter system; 22 gauge; Delmer; 05/12/14; 141605/11/14 0731 by Nitesh Dowell MD 05/12/14 141 by Hedy Vazquez, RN ETT Mask Ventilation: Ea sy (1); ETT Type: Cuffed, Oral; ETT Size: 7 mm; Mac Blade: 3; Notes: Asleep, Pre-O2, Stylette; Attempts: 1; Laryngoscopy Grade: 1; ETT Placement Verified By: Auscultation, Capnometry, Visual; Secured at Teeth: 21 cm; Inserted by: eDlmer; Removal Date: 05/11/14; Removal Time: 93805/11/14 075 [...] BARRERA OLIVER [facility] MAIN OR ??? Apply of hip casts, two legs 08/15/2010 CAST APPLICATION, HIP SPICA, BOTH LEGS performed by BARRERA OLIVER at [facility] MAIN OR ??? Removal deep implant 08/15/2010 REMOVAL IMPLANT, DEEP, BRUNO performed by BARRERA OLIVER at [facility] MAIN OR ??? Osteotomy femur shaft/supracondy 08/15/2010 ??OSTEOTOMY, FEMUR SHAFT OR SUPRACONDYLAR W/O FIXATION performed by BARRERA OLIVER at [facility] MAIN OR History Substance Use Topics [...] and mother whom consented to blood products. [facility] [place]. Assessment: documented in this encounter Plan of Treatment Upcoming Encounters Date Type Department Care Team (Late st Contact Info) Description 06/02/2024 12:30 PM EST Office Visit Infectious Disease at [facility] [place] [address] Hollie Ambriz MD [facility] [place] [address] documented as of this encounter Visit Diagnoses [...] mg documented in this encounter Care Teams Drug And Alcohol Treatment Specialist Relationship Specialty Start Date End Date Naina Lindsey MD [address] [place] [address] PCP - General 03/19/10 08/25/16 documented as of this encounter
--- OUTSIDE RECORDS SUMMARY | 2023-12-29 14:11 | XMS_ITS | Encounter Summary ---
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 Dotson Reason for Reprogramming: Pump alarm date approaching Diagnosis: Spacticity, traumatic head injury Telemetry Pre-programming Reading: Drug Concentration Daily Dose Baclofen 1,000 mcg/ ml 195.1 mcg/ day Telemetry Post-programming Reading: Drug Concentration Daily Dose Brand (B) or Compound (C) Lot number Baclofen 1,000 mcg/ ml 195.1 mcg/ day Compound #[id number] Simple Continuous Rx # [id number] Exp. 02/05/13 Pump Capacity: 40 ml Computer Predicted Residual Volume in Pump (ml): 4.5 ml Measured Residual volume in Pump (ml): 5.8 ml Medication or Dose Changes: no Is dose change > 30%? n/a Is concentration or drug different? no Empty syringe concentration verified by billing checker: yes If concentration or drug is [...] instilled into the pump according to the electrophysiology nurse practitioner's directions without difficulty. There was no evidence [...] PM EST Office [place] [address] Hollie Ambriz MD [facility] [place] [address] documented as of this encounter Procedures Procedure [...] with Reprogramming Procedure Note Tana Cavazos ? [id number] Date of Refill: January 20, 2013 Primary Larry Car Operator: ASHKAN BRANTLEY APRN Navy Diver: Dr. Dotson Reason for Reprogramming: ??Pump alarm date approaching Diagnosis: ??Spacticity, traumatic head injury Telemetry Pre-programming Reading: Drug Concentration Daily Dose Baclofen 1,000 mcg/ ml 195.1 mcg/ day ? Telemetry Post-programming Reading: ?? Drug Concentration Daily Dose Brand (B) or Compound (C) Lot number Baclofen 1,000 mcg/ ml 195.1 mcg/ day Compound #[id number] Simple Continuous ?? Rx # [id number] Exp. 02/05/13 ? Pump Capacity: ??40 ml Computer Predicted Residual Volume in Pump (ml): ??4.5 ml Measured Residual volume in Pump (ml): 5.8 ml Medication or Dose Changes: ?no Is dose change > 30%?n/a Is concentration or drug different? ??no Empty syringe concentration verified by billing checker: ?? yes If concentration or drug [...] drapes were applied as provided with the ??[employer] refill kit. A 22 gauge Persaud non-coring [...] instilled into the pump according to the electrophysiology nurse practitioner's directions without difficulty. There was no evidence [...] Pump with Reprogramming Procedure Note Tana Cavazos [id number] Date of Refill: January 20, 2013 Primary Larry Car Operator: ASHKAN BRANTLEY APRN Navy Diver: Dr. Dotson Reason for Reprogramming: Pump alarm date approaching Diagnosis: Spacticity, traumatic head injury Telemetry Pre-programming Reading: Drug Concentration Daily Dose Baclofen 1,000 mcg/ ml 195.1 mcg/ day Telemetry Post-programming Reading: Drug Concentration Daily Dose Brand (B) or Compound (C) Lot number Baclofen 1,000 mcg/ ml 195.1 mcg/ day Compound #[id number] Simple Continuous Rx # [id number] Exp. 02/05/13 Pump Capacity: 40 ml Computer Predicted Residual Volume in Pump (ml): 4.5 ml Measured Residual volume in Pump (ml): 5.8 ml Medication or Dose Changes: no Is dose change > 30%? n/a Is concentration or drug different? no Empty syringe concentration verified by billing checker: yes If concentration or drug is [...] wasinstilled into the pump according to the electrophysiology nurse practitioner's directions withoutdifficulty. There was no evidence of [...] procedure well [facility] Follow-up appointments will be arranged for [...] each documented in this encounter Care Teams Truss Maker Relationship Specialty Start Date End Date Naina Lindsey MD [address] [place] [address] PCP - General 03/19/10 08/25/16 documented as of this encounter
--- OUTSIDE RECORDS SUMMARY | 2023-12-29 14:11 | XMS_ITS | Encounter Summary ---
[place] [address] Care Team Providers Care Oxyacetylene Torch Operator Name Role Phone Naina Lindsey MD Primary Care Provider [phone] Reason for Visit * Reason Comments Pain Encounter Details Date Type Department Care Team (Latest Contact Info) Description 01/25/2014 4:00 PM EDT Procedure [place] [address] [facility] [place] [address] Traumatic brain injury, subsequent encounter (Primary Dx) [...] Pump Reprogramming Only Procedure Note Tana Cavazos [id number] Date of Refill: January 25, 2014 Primary Bait Digger: KAREN EARLY DO Instructional Technology Coordinator: Donnell Dotson MD Reason for Reprogramming: NA 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 Prior to this surgery the patient had [...] available to conference the patient's physicians at [facility] as this decision is made. The mother will contact the orthopedic surgeon who performed the procedure to get his input as to whether he feels the baclofen has been helping. She will also request referral to a pediatric physiatry doctor at [facility] and will contact us back with [...] EST Office Visit [place] [address] Hollie Ambriz MD [facility] [place] [address] documented as of this encounter Visit Diagnoses Diagnosis Traumatic brain injury, subsequent encounter- Primary documented in this encounter Care Teams Oxyacetylene Torch Operator Relationship Specialty Start Date End Date Naina Lindsey MD [address] [place] [address] [place] [address] PCP - General 03/19/10 08/25/16 documented as of this encounter
--- OUTSIDE RECORDS SUMMARY | 2023-12-29 14:11 | XMS_ITS | Encounter Summary ---
Author Organization [facility] [place] [address] Care Team Providers Care Stull Installer Name Role Phone Naina Lindsey MD Primary Care Provider [phone] Reason for Referral * Consultation (Routine) - Closed Specialty Diagnoses / Procedures Referred By Contac t Referred To Contact Pain Management Diagnoses Scoliosis Jamar Dodd III, MD [facility] [place] [address] [facility] [address] [place] [address] Referral ID Status Reason Start Date Expiration Date V isits Requested Visits Authorized [id number] Closed Consult Only 12/16/2011 06/13/2012 1 1 * Consultation (Routine) - Complete - Unable to Contact Patient Specialty Diagnoses / Procedures Referred By Contac t Referred To Contact Pediatrics Diagnoses Scoliosis pre operative evaluation and to establish contact for future surgery at [facility] per Jamar Whiting III, MD [facility] [place] [address] [facility] [address] [place] [phone] Referral ID Status Reason Start Date Expiration Date Visits Requested Visits Authorized [id number] Complete - Unable to Contact Patient Consult Only 12/16/2011 06/13/2012 1 1 * Surgical (Routine) - Closed by system - Referral Specialty Diagnoses / Procedures Referred By Contac t Referred To Contact Anesthesiology Diagnoses Scoliosis Aquiles Smith MD [facility] [place] [address] [place] [address] Referral ID Status Reason Start Date Expiration Date Visits Requested Visits Authorized [id number] Closed by system - Referral Consult, Test & Treat 12/16/2011 06/13/2012 1 1 Reason for Visit * Reason Comments Follow Up Surgery Bilat. Hip DOS 2010 Encounter Details Date Type Department Care Team (Late st Contact Info) Description 12/16/2011 1:30 PM EDT Office Visit Orthopaedics at [place] [phone] Aquiles Smith MD [facility] [place] [address] Scoliosis (Primary Dx) Discharge Disposition: Home Social [...] PM EST Office Visit [place] [address] Hollie Ambriz MD [facility] [place] [address] Scheduled Referrals Name Type Priority Associated Diagnoses Order Schedule REFERRAL TO GENERAL ANESTHESIOLOGY Outpatient Referral Routine Scoliosis Ordered: 12/16/2011 REFERRAL TO PEDIATRICS Outpatient Referral Routine Scoliosis Ordered: 12/16/2011 REFERRAL TO PAIN CLINIC Outpatient Referral Routine Scoliosis Ordered: 12/16/2011 documented as of this encounter Visit Diagnoses Diagnosis Scoliosis- Primary Scoliosis (and kyphoscoliosis), idiopathic documented in this encounter Care Teams Stull Installer Relationship Specialty Start Date End Date Naina Lindsey MD [address] [place] [address] PCP - General 03/19/10 08/25/16 documented as of this encounter
--- OUTSIDE RECORDS SUMMARY | 2023-12-29 14:11 | XMS_ITS | Encounter Summary ---
Author Organization [facility] [place] [address] Care Team Providers Care Preform Machine Operator Name Role Phone Naina Lindsey MD Primary Care Provider [phone] Reason for Visit * Reason Comments Bilateral Leg Pain CP Encounter Details Date Type Department Care Team (Late st Contact Info) Description 05/19/2011 10:40 AM EST [place] [phone] Yas Ramirez MD [facility] [address] TBI (traumatic brain injury) (Primary Dx); Scoliosis; [...] PM EST Office [place] [address] Hollie Ambriz MD [facility] [place] [address] documented as of this encounter Results * [...] idiopathic documented in this encounter Care Teams Preform Machine Operator Relationship Specialty Start Date End Date Naina Lindsey MD [address] [place] [address] PCP - General 03/19/10 08/25/16 documented as of this encounter
--- OUTSIDE RECORDS SUMMARY | 2023-12-29 14:12 | XMS_ITS | Encounter Summary ---
Author Organization [facility] Address [facility] [place] [address] Care Team Providers Care Fast Food Crew Lead Name Role Phone Naina Lindsey MD Primary Care Provider [phone] Encounter Details Date Type Department Care Team (Late st Contact Info) Description 08/13/2010 Abstract [place] [address] Yas Ramirez MD [facility] [place] [address] Social History Tobacco Use Types Packs/Day Years [...] PM EST Office Visit [place] [address] Hollie Ambriz MD [facility] [place] [address] documented as of this encounter Visit Diagnoses Not on filedocumented in this encounter Care Teams Fast Food Crew Lead Relationship Specialty Start Date End Date Naina Lindsey MD [address] [place] [address] PCP - General 03/19/10 08/25/16 documented as of this encounter
--- OUTSIDE RECORDS SUMMARY | 2023-12-29 14:12 | XMS_ITS | Encounter Summary ---
[place] [address] Care Team Providers Care Test Borer Name Role Phone Naina Lindsey MD Primary Care Provider [phone] Reason for Visit * Reason Comments Cerebral Palsy Encounter Details Date Type Department Care Team (Late st Contact Info) Description 09/05/2010 1:00 PM EDT Office [place] [address] CLINIC, DR VALADEZ Muscle spasticity (Primary Dx) [...] PM EST Office [place] [address] Hollie Ambriz MD [facility] DR [place] [address] documented as of this encounter Visit Diagnoses Diagnosis Muscle spasticity- Primary Spasm of muscle documented in this encounter Care Teams Test Borer Relationship Specialty Start Date End Date Naina Lindsey MD [address] [place] [address] PCP - General 03/19/10 08/25/16 documented as of this encounter
--- OUTSIDE RECORDS SUMMARY | 2023-12-29 14:12 | XMS_ITS | Encounter Summary ---
[place] [address] Care Team Providers Care Oyster Harvester Name Role Phone Naina Lindsey MD Primary Care Provider [phone] Reason for Visit * Reason Onset Date Comments Other 03/14/2011 Encounter Details Date Type Department Care Team (Late st Contact Info) Description 03/14/2011 Telephone [place] [address] Mony Fierro RN Other Social History Tobacco [...] this also with Bart Denis PT from [place] [facility] who has been unable to find a creative way to avoid this with her seating. Discussed with Dr. Ramirez who will evaluate at her appointment on 03/31. documented in this encounter Plan of Treatment Upcoming Encounters Date Type Department Care Team (Late st Contact Info) Description 06/02/2024 12:30 PM EST Office Visit [place] [address] Hollie Ambriz MD [facility] [place] [address] documented as of this encounter Visit Diagnoses Not on filedocumented in this encounter Care Teams Oyster Harvester Relationship Specialty Start Date End Date Naina Lindsey MD [address] [place] [address] [place] [address] PCP - General 03/19/10 08/25/16 documented as of this encounter
--- OUTSIDE RECORDS SUMMARY | 2023-12-29 14:12 | XMS_ITS | Encounter Summary ---
Author Organization [facility] [place] [address] Care Team Providers Care Farm Management Agent Name Role Phone Naina Lindsey MD Primary Care Provider [phone] Reason for Referral * Consultation (Routine) - Complete - Patient Will Schedule External Appt Specialty Diagnoses / Procedures Referred By Contac t Referred To Contact Orthotics Diagnoses Cerebral palsy Yas Ramirez MD [facility] [place] [address] Referral ID Status Reason Start Date Expiration Date Visits Requested Visits Authorized [id number] Complete - Patient Will Schedule External Appt Assume Subset of Care 09/30/2010 03/29/2011 1 1 * Consultation (Routine) - Complete - Patient Will Schedule External Appt Specialty Diagnoses / Procedures Referred By Contac t Referred To Contact Orthotics Diagnoses Cerebral palsy Yas Ramirez MD [facility] [place] [address] Referral ID Status Reason Start Date Expiration Date Visits Requested Visits Authorized [id number] Complete - Patient Will Schedule External Appt Assume Subset of Care 09/30/2010 03/29/2011 1 1 Reason for Visit * Reason Comments Developmental Delay serial casting Encounter Details Date Type Department Care Team (Late st Contact Info) Description 09/30/2010 9:00 AM EDT Follow-Up Orthopaedics at [facility] [address] Yas Ramirez MD [facility] [place] [address] Cerebral palsy (Primary Dx) Discharge Disposition: Home [...] encounter Miscellaneous Notes * Miscellaneous - Delbert Patient Financial Rep - 10/31/2010 9:10 AM EDT documented in this encounter Plan of Treatment Upcoming Encounters Date Type Department Care Team (Late st Contact Info) Description 06/02/2024 12:30 PM EST Office [place] [address] Hollie Ambriz MD [facility] DR INFECTIOUS DISEASE [place] [phone] Scheduled Referrals Name Type Priority Associated Diagnoses Orde r Schedule REFERRAL FOR ORTHOTICS Outpatient Referral Routine Cerebral palsy Ordered: 09/30/2010 REFERRAL FOR ORTHOTICS Outpatient Referral Routine Cerebral palsy Ordered: 09/30/2010 documented as of this encounter Visit Diagnoses Diagnosis Cerebral palsy- Primary Infantile cerebral palsy, unspecified documented in this encounter Care Teams Farm Management Agent Relationship Specialty Start Date End Date Naina Lindsey MD [address] [place] [address] PCP - General 03/19/10 08/25/16 documented as of this encounter
--- OUTSIDE RECORDS SUMMARY | 2023-12-29 14:12 | XMS_ITS | Encounter Summary ---
Author Organization [facility] [place] [address] Care Team Providers Care Electronics Specialist Name Role Phone Naina Lindsey MD Primary Care Provider [phone] Encounter Details Date Type Department Care Team (Late st Contact Info) Description 09/27/2010 Orders [place] [address] Yas Ramirez MD [facility] [place] [address] Muscle spasticity; Acquired dysplasia of hip, bilateral; [...] PM EST Office Visit [place] [address] Hollie Ambriz MD [facility] [place] [address] documented as of this encounter Visit Diagnoses Diagnosis Muscle spasticity Spasm of muscle Acquired dysplasia of hip, bilateral Other acquired deformities of hip 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
--- OUTSIDE RECORDS SUMMARY | 2023-12-29 14:12 | XMS_ITS | Encounter Summary ---
[place] [address] Care Team Providers Care Hydrometeorologist Name Role Phone Naina Lindsey MD Primary Care Provider [phone] Reason for Visit * Reason Comments Spasms Encounter Details Date Type Department Care Team (Latest Contact Info) Description 04/25/2011 10:00 AM EST Procedure [place] [address] CLINIC, Nitin Almeida MD 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 Zaldivar Aircraft Armament Mechanic: Dr. Dillon Reason for Reprogramming: Refill/weaning Diagnosis: [...] instilled into the pump according to the hospitality team member's directions without difficulty. There was no [...] medication. Nitin Zaldivar MD Fellow, Pain Medicine 5574 documented in this encounter Miscellaneous Notes * Miscellaneous - Delbert, Window Installation Subcontractor - 05/01/2011 2:01 PM EST documented in this encounter Plan of Treatment Upcoming Encounters Date Type Department Care Team (Late st Contact Info) Description 06/02/2024 12:30 PM EST Office Visit [place] [address] Hollie Ambriz MD [facility] [address] [place] [address] documented as of this encounter Visit Diagnoses [...] each documented in this encounter Care Teams Hydrometeorologist Relationship Specialty Start Date End Date Naina Lindsey MD [address] [place] [address] PCP - General 03/19/10 08/25/16 documented as of this encounter
--- OUTSIDE RECORDS SUMMARY | 2023-12-29 14:12 | XMS_ITS | Encounter Summary ---
Author Organization [facility] Address [facility] [place] [address] Care Team Providers Care Boat Outfitting Supervisor Name Role Phone Naina Lindsey MD Primary Care Provider [phone] Encounter Details Date Type Department Care Team (Late st Contact Info) Description 08/15/2010 7:43 AM EDT Anesthesia Event [place] [address] Erika Curtis MD [facility] DR [place] [address] Anesthesia Record Procedure Summary Procedure Name Responsible [...] patient, father and mother. Plan discussed with INVESTIGATIVE RESEARCH SPECIALIST. documented in this encounter Miscellaneous Notes * [...] PM EST Office [place] [address] Hollie Ambriz MD [facility] [place] [address] documented as of this encounter Visit Diagnoses Not on filedocumented in this encounter Care Teams Boat Outfitting Supervisor Relationship Specialty Start Date End Date Naina Lindsey MD [address] [place] [address] [place] [address] PCP - General 03/19/10 08/25/16 documented as of this encounter
--- OUTSIDE RECORDS SUMMARY | 2023-12-29 14:12 | XMS_ITS | Encounter Summary ---
Author Organization [facility] [place] [address] Care Team Providers Care Plastic Press Molder Name Role Phone Naina Lindsey MD Primary Care Provider [phone] Encounter Details Date Type Department Care Team (Late st Contact Info) Description 08/13/2010 Orders Only [place] [address] Yas Ramirez MD [facility] DR [place] [address] DDH (developmental dysplasia of the hip) (Primary [...] EST Office Visit [place] [address] Hollie Ambriz MD [facility] DR [place] [address] documented as of this encounter Visit Diagnoses Diagnosis DDH (developmental dysplasia of the hip)- Primary Other congenital deformity of hip (joint) documented in this encounter Care Teams Plastic Press Molder Relationship Specialty Start Date End Date Naina Lindsey MD [address] [place] [address] PCP - General 03/19/10 08/25/16 documented as of this encounter
--- OUTSIDE RECORDS SUMMARY | 2023-12-29 14:12 | XMS_ITS | Encounter Summary ---
Author Organization [facility] [place] [address] Care Team Providers Care Data Steward Name Role Phone Naina Lindsey MD Primary Care Provider [phone] Encounter Details Date Type Department Care Team (Late st Contact Info) Description 07/11/2010 9:00 AM EDT [place] [address] Andrade Gordon MD [facility] [place] [address] Discharge Disposition: Home Social History Tobacco Use [...] PM EST Office Visit [place] [address] Hollie Ambriz MD [facility] [place] [address] documented as of this encounter Visit Diagnoses Not on filedocumented in this encounter Care Teams Data Steward Relationship Specialty Start Date End Date Naina Lindsey MD [address] [place] [address] PCP - General 03/19/10 08/25/16 documented as of this encounter
--- OUTSIDE RECORDS SUMMARY | 2023-12-29 14:12 | XMS_ITS | Encounter Summary ---
Author Organization [facility] [place] [address] Care Team Providers Care Vp Customer Development Name Role Phone Naina Lindsey MD Primary Care Provider [phone] Encounter Details Date Type Department Care Team (Late st Contact Info) Description 06/12/2010 9:30 AM EST [place] [address]-1000 Yas Ramirez MD [facility] [place] [address] Discharge Disposition: Home Social History Tobacco Use [...] PM EST Office Visit [place] [address]-1000 Hollie Ambriz MD [facility] [place] [address] documented as of this encounter Visit Diagnoses Not on filedocumented in this encounter Care Teams Vp Customer Development Relationship Specialty Start Date End Date Naina Lindsey MD [address] [place] [address] PCP - General 03/19/10 08/25/16 documented as of this encounter
--- OUTSIDE RECORDS SUMMARY | 2023-12-29 14:12 | XMS_ITS | Encounter Summary ---
Author Organization [facility] [place] [address] Care Team Providers Care Poultry Tender Name Role Phone Naina Lindsey MD Primary Care Provider [phone] Reason for Referral * Physical Therapy (Routine) - Complete - Patient Will Schedule External Appt Specialty Diagnoses / Procedures Referred By Karlo t Referred To Contact Physical Therapy Diagnoses Developmental delay Yas Ramirez MD [facility] [place] [address] Referral ID Status Reason Start Date Expiration Date Visits Requested Visits Authorized [id number] Complete - Patient Will Schedule External Appt Evaluate and Treat 09/24/2010 03/23/2011 1 1 Reason for Visit * Reason Comments Follow Up Surgery spica cast Encounter Details Date Type Department Care Team (Late st Contact Info) Description 09/24/2010 2:20 PM EDT [place] [id number] Yas Ramirez MD [facility] [place] [address] Developmental delay (Primary Dx); Traumatic brain injury [...] PM EST Office [place] [address] Hollie Ambriz MD [facility] DR [place] [address] Scheduled Referrals Name Type Priority Associated Diagnoses [...] hip documented in this encounter Care Teams Poultry Tender Relationship Specialty Start Date End Date Naina Lindsey MD [address] [place] [address] [place] [address] PCP - General 03/19/10 08/25/16 documented as of this encounter
--- OUTSIDE RECORDS SUMMARY | 2023-12-29 14:12 | XMS_ITS | Encounter Summary ---
Author Organization [facility] [place] [address] Care Team Providers Care Plug Assembler Name Role Phone Naina Lindsey MD Primary Care Provider [phone] Encounter Details Date Type Department Care Team (Late st Contact Info) Description 11/07/2010 Orders [place] [address]-1000 Bigg Dunbar MD [facility] [place] [address] Spasticity (Primary Dx) Social History Tobacco Use [...] PM EST Office [place] [address]1000 Hollie Ambriz MD [facility] [place] [address] documented as of this encounter Visit Diagnoses Diagnosis Spasticity- Primary Abnormal involuntary movements documented in this encounter Care Teams Plug Assembler Relationship Specialty Start Date End Date Naina Lindsey MD [address] [place] [address] PCP - General 03/19/10 08/25/16 documented as of this encounter
--- OUTSIDE RECORDS SUMMARY | 2023-12-29 14:12 | XMS_ITS | Encounter Summary ---
Author Organization [facility] [place] [address] Care Team Providers Care Supervisor Agricultural Education Name Role Phone Naina Lindsey MD Primary Care Provider [phone] Reason for Referral * Consultation (Routine) - Complete - Patient Will Schedule External Appt Specialty Diagnoses / Procedures Referred By Contac t Referred To Contact Orthotics Diagnoses Edema leg Scoliosis Acquired dysplasia of hip Traumatic brain injury Yas Ramirez MD [facility] ORTHOPAEDIC [place] [address] Referral ID Status Reason Start Date Expiration Date Visits Requested Visits Authorized [id number] Complete - Patient Will Schedule External Appt Consult, Test & Treat 1 10/13/2011 1 1 Encounter Details Date Type Department Care Team (Late st Contact Info) Description 04/16/2011 [place] [address] Yas Ramirez MD [facility] ORTHOPAEDIC [place] [address] Edema leg; Scoliosis; Acquired dysplasia of hip, [...] PM EST Office [place] [address] Hollie Ambriz MD [facility] DR INFECTIOUS [place] [address] Scheduled Referrals Name Type Priority Associated Diagnoses [...] consciousness documented in this encounter Care Teams Supervisor Agricultural Education Relationship Specialty Start Date End Date Naina Lindsey MD [address] [place] [address] PCP - General 03/19/10 08/25/16 documented as of this encounter
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
--- OUTSIDE RECORDS SUMMARY | 2023-12-29 14:12 | XMS_ITS | Encounter Summary ---
Author Organization [facility] [place] [address] Care Team Providers Care Industrial Relations Representative Name Role Phone Naina Lindsey MD Primary Care Provider [phone] Encounter Details Date Type Department Care Team (Late st Contact Info) Description 08/19/2010 Orders [place] [address] Lucho Fields MD [facility] DR [place] [address] Social History Tobacco Use Types Packs/Day Years [...] PM EST Office [place] [address] Hollie Ambriz MD [facility] [place] [address] documented as of this encounter Visit Diagnoses Not on filedocumented in this encounter Care Teams Industrial Relations Representative Relationship Specialty Start Date End Date Naina [place] [address] PCP - General 03/19/10 08/25/16 documented as of this encounter
--- OUTSIDE RECORDS SUMMARY | 2023-12-29 14:12 | XMS_ITS | Encounter Summary ---
Author Organization [facility] [place] [address] Care Team Providers Care Surveyor Helper Name Role Phone Naina Lindsey MD Primary Care Provider [phone] Reason for Referral * Occupational Therapy (Routine) - Complete - Patient Will Schedule External Appt Specialty Diagnoses / Procedures Referred By Contac t Referred To Contact Occupational Therapy Diagnoses Acquired dysplasia of hip Scoliosis Traumatic brain injury Yas Ramirez MD [facility] DR ORTHOPAED[place] [address] Referral ID Status Reason Start Date Expiration Date Visits Requested Visits Authorized [id number] Complete - Patient Will Schedule External Appt Evaluate and Treat 01/02/2011 07/01/2011 1 1 * Physical Therapy (Routine) - Complete - Patient Will Schedule External Appt Specialty Diagnoses / Procedures Referred By Contac t Referred To Contact Physical Therapy Diagnoses Acquired dysplasia of hip Scoliosis Traumatic brain injury Yas Ramirez MD [facility] OR[place]OPA[place] [address] Referral ID Status Reason Start Date Expiration Date Visits Requested Visits Authorized [id number] Complete - Patient Will Schedule External Appt Evaluate and Treat 01/02/2011 07/01/2011 1 1 Encounter Details Date Type Department Care Team (Late st Contact Info) Description 01/02/2011 Orders Only Orthopaedics at [place] [phone] Yas Ramirez MD [facility] [place] [address] Acquired dysplasia of hip, bilateral; Scoliosis; Traumatic [...] PM EST Office Visit Infectious Disease at [address] Hollie Ambriz MD [facility] [place] [address] Scheduled Referrals Name Type Priority Associated Diagnoses [...] consciousness documented in this encounter Care Teams Surveyor Helper Relationship Specialty Start Date End Date Naina Lindsey MD [address] [place] [address] [place] [address] PCP - General 03/19/10 08/25/16 documented as of this encounter
--- OUTSIDE RECORDS SUMMARY | 2023-12-29 14:12 | XMS_ITS | Encounter Summary ---
[place] [address] Care Team Providers Care Drafter Mechanical Name Role Phone Naina Lindsey MD Primary Care Provider [phone] Encounter Details Date Type Department Care Team (Late st Contact Info) Description 02/03/2011 Orders [place] [phone] Yas Ramirez MD [facility] [place] [address] Acquired dysplasia of hip, bilateral; Scoliosis; Traumatic [...] PM EST Office [place] [phone] Hollie Ambriz MD [facility] [place] [address] documented as of this encounter Visit Diagnoses Diagnosis Acquired dysplasia of hip, bilateral Other acquired deformities of hip Scoliosis Scoliosis (and kyphoscoliosis), idiopathic 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
--- OUTSIDE RECORDS SUMMARY | 2023-12-29 14:12 | XMS_ITS | Encounter Summary ---
Author Organization [facility] [place] [address] Care Team Providers Care Trials Manager Name Role Phone Naina Lindsey MD Primary Care Provider [phone] Reason for Visit * Reason Onset Date Comments Other 11/11/2010 WANTED NOTES [facility] M SURG Encounter Details Date Type Department Care Team (Late st Contact Info) Description 11/11/2010 Telephone [place] [phone] Yas Ramirez MD [facility] [place] [address] Other (WANTED NOTES FROM SURG) Social History [...] PM EST Office [place] [address] Hollie Ambriz MD [facility] [place] [address] documented as of this encounter Visit Diagnoses Not on filedocumented in this encounter Care Teams Trials Manager Relationship Specialty Start Date End Date Naina Lindsey MD [address] [place] [address] [place] [address] PCP - General 03/19/10 08/25/16 documented as of this encounter
--- OUTSIDE RECORDS SUMMARY | 2023-12-29 14:12 | XMS_ITS | Encounter Summary ---
Author Organization [facility] Address 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 did not [...] Visit [place] [address] Hollie Ambriz MD [facility] DR INFECTI[place] [address] documented as of this encounter Results * Duplex for DVT, Leg, Unilat (11/04/2010 3:55 PM EDT) VB Text Report Department: Vascular Surgery Lab Patient: [id number] (TANA SHELTNO) CPT Code: 70125 ICD-9: 729.81 Referring Physician: BARRERA OLIVER Indication: [...] consciousness documented in this encounter Care Teams Lotus Notes Developer Relationship Specialty Start Date End Date Naina Lindsey MD [address] [place] [address] PCP - General 03/19/10 08/25/16 documented as of this encounter
--- OUTSIDE RECORDS SUMMARY | 2023-12-29 14:12 | XMS_ITS | Encounter Summary ---
Author Organization [facility] [place] [address] Care Team Providers Care Varnisher Apprentice Name Role Phone Naina Lindsey MD Primary Care Provider [phone] Encounter Details Date Type Department Care Team (Late st Contact Info) Description 04/15/2011 Orders Only [place] [address] Margaux Godfrey MD [facility] [address] [facility] [place], [place] [phone] Spasticity (Primary Dx) Social History Tobacco Use [...] PM EST Office Visit [place] [address] Hollie Ambriz MD [facility] [place] [address] documented as of this encounter Visit Diagnoses Diagnosis Spasticity- Primary Abnormal involuntary movements documented in this encounter Care Teams Varnisher Apprentice Relationship Specialty Start Date End Date Naina Lindsey MD [address] [place] [address] PCP - General 03/19/10 08/25/16 documented as of this encounter
--- OUTSIDE RECORDS SUMMARY | 2023-12-29 14:12 | XMS_ITS | Encounter Summary ---
Author Organization [facility] Address [facility] [place] [address] Care Team Providers Care Relish Blender Name Role Phone Naina Lindsey MD Primary Care Provider [phone] Encounter Details Date Type Department Care Team (Latest Contact Info) Description 09/24/2010 1:20 PM EDT - 09/24/2010 11:59 PM EDT Hospital Encounter XRay at [address] [place] [address] Muscle spasticity Social History Tobacco Use Types [...] PM EST Office [place] [address] Hollie Ambriz MD [facility] [place] [address] documented as of this encounter Procedures Procedure [...] muscle documented in this encounter Care Teams Relish Blender Relationship Specialty Start Date End Date Naina Lindsey MD [address] [place] [address] PCP - General 03/19/10 08/25/16 documented as of this encounter
--- OUTSIDE RECORDS SUMMARY | 2023-12-29 14:12 | XMS_ITS | Encounter Summary ---
Author Organization [facility] [place] [address] Care Team Providers Care Dust Mill Operator Name Role Phone Naina Lindsey MD Primary Care Provider [phone] Encounter Details Date Type Department Care Team (Late st Contact Info) Description 11/04/2010 4:00 PM EDT Office Visit [place] [phone] Gloria López, RVT Acquired dysplasia of hip, [...] PM EST Office Visit [place] [address] Hollie Ambriz MD [facility] [address] documented as of this encounter Procedures Procedure Name Priority Date/Time Associated Diagnosis Comments DUPLEX FOR DVT, LEG, UNILAT Routine 11/04/2010 3:55 PM EDT Acquired dysplasia of hip, bilateral Edema leg documented in this encounter Results * Duplex for DVT, Leg, Unilat (11/04/2010 3:55 PM EDT) VB Text Report Department: Vascular Surgery Lab Patient: [id number] (TANA SHELTON) CPT Code: 99346 ICD-9: 729.81 Referring Physician: BARRERA OLIVER Indication: [...] Oliver MD VASCULAR ORDERABLES Performing Organization Address City/State/[facility] Co de Phone Number [facility]ASCUBASE documented in this encounter Visit Diagnoses Diagnosis Acquired dysplasia of hip, bilateral Other acquired deformities of hip Edema leg Edema documented in this encounter Care Teams Dust Mill Operator Relationship Specialty Start Date End Date Naina Lindsey MD [address] [place] [address] [place] [address] PCP - General 03/19/10 08/25/16 documented as of this encounter
--- OUTSIDE RECORDS SUMMARY | 2023-12-29 14:12 | XMS_ITS | Encounter Summary ---
[place] [address] Care Team Providers Care Efficiency Analyst Name Role Phone Naina Lindsey MD Primary Care Provider [phone] Encounter Details Date Type Department Care Team (Late st Contact Info) Description 12/17/2010 Telephone [place] [address] Mony Fierro, RN Social History [...] PM EST Office Visit Infectious [place] [address] Hollie Ambriz MD [facility] [place] [address] documented as of this encounter Visit Diagnoses Not on filedocumented in this encounter Care Teams Efficiency Analyst Relationship Specialty Start Date End Date Naina Lindsey MD [address] [place] [address] PCP - General 03/19/10 08/25/16 documented as of this encounter
--- OUTSIDE RECORDS SUMMARY | 2023-12-29 14:12 | XMS_ITS | Encounter Summary ---
Author Organization [facility] [place] [address] Care Team Providers Care Business Banking Relationship Manager Name Role Phone Naina Lindsey MD Primary Care Provider [phone] Encounter Details Date Type Department Care Team (Late st Contact Info) Description 11/18/2010 Abstract [place] [phone] Jessica López, RN Social History Tobacco Use [...] PM EST Office Visit [place] [address] Hollie Ambriz MD [facility] [place] [address] documented as of this encounter Visit Diagnoses Not on filedocumented in this encounter Care Teams Business Banking Relationship Manager Relationship Specialty Start Date End Date Naina Lindsey MD [address] [place] [address] [place] [address] PCP - General 03/19/10 08/25/16 documented as of this encounter
--- OUTSIDE RECORDS SUMMARY | 2023-12-29 14:12 | XMS_ITS | Clinical Summary ---
Author Organization [facility] Address [address] [place] [address] Care Team Providers Care General Magistrate Name Role Phone César Robert MD, Naina Primary Care Provider [phone] Medications Medication Sig Dispensed Refills Start Date [...] appointments, call [facility]: [phone]. No additional problems on file Encounters Date Type Department Care Team Description 12/04/2023 Lab Requisition [facility] [address] [place] [address] Outr Resulting Lab, Provider from Last 3 [...] >15.00 See Note mg/L 12/04/2023 18:03 EDT [facility] Comment: Suggest ordering C-Reactive Protein Reference Range: ??Low Risk: ? <1.0 mg/L ??Average Risk: ?? 1.0 - 3.0 mg/L ??High Risk: ?>3.0 mg/L ??Indeterminate*: >10.0 mg/L ??*May be an indication of another source of inflammation or infection Blood VENOUS BLOOD / Unknown 12/04/2023 10:00 EDT 12/04/2023 17:37 EDT Provider Outr Resulting Lab CHEMISTRY & BLOOD GAS ORDERABLES [facility] [address] [place] [address] from Last 3 Months Care Teams General Magistrate Relationship Specialty Start Date End Date Naina Lindsey MD [address] [place] [address] PCP - General 02/13/15
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
--- OUTSIDE RECORDS SUMMARY | 2023-12-29 14:12 | XMS_ITS | Encounter Summary ---
Author Organization [facility] Address [facility] [place] [address] Care Team Providers Care Manager Enterprise Content Management Name Role Phone Naina Lindsey MD Primary Care Provider [phone] Encounter Details Date Type Department Care Team (Late st Contact Info) Description 06/12/2010 9:00 AM EST Procedure visit [address] [address] Social History Tobacco Use Types Packs/Day Years [...] PM EST Office [place] [address] Hollie Ambriz MD [facility] [place] [address] documented as of this encounter Visit Diagnoses Not on filedocumented in this encounter Care Teams Manager Enterprise Content Management Relationship Specialty Start Date End Date Naina Lindsey MD [address] [place] [address] [place], [place] [id number] PCP - General 03/19/10 08/25/16 documented as of this encounter
--- OUTSIDE RECORDS SUMMARY | 2023-12-29 14:12 | XMS_ITS | Encounter Summary ---
Author Organization [facility] [place] [address] Care Team Providers Care Assistant Professor Of Biochemistry Name Role Phone Naina Lindsey MD Primary Care Provider [phone] Reason for Visit * Reason Comments Spasms Encounter Details Date Type Department Care Team (Late st Contact Info) Description 11/20/2010 12:45 PM EDT Follow-[place] [phone] Christiano Floyd MD [facility] [place] [address] Spastic quadriplegia (Primary Dx) Discharge Disposition: Home [...] 1:2 7 PM EDT Growth Chart: [facility] (Girls, 2- 20 Years) documented in this encounter Progress Notes * Gaby Silva - 11/20/2010 3:00 PM EDT Pain Management Center Refill of Intrathecal Pump with Reprogramming Procedure Note Tana Robles Cavazos [id number] Date of Refill: 11/20/10 Primary Crane Chaser: Dr. Silva Pipe Racker: Dr. Floyd Reason for Reprogramming: Refill Diagnosis: [...] instilled into the pump according to the ultrasound spec's directions without difficulty. There was no evidence [...] PM EST Office Visit [place] [address] Hollie Ambriz MD [facility] [place] [address] documented as of this encounter Visit Diagnoses Diagnosis Spastic quadriplegia- Primary Quadriplegia, unspecified documented in this encounter Care Teams Assistant Professor Of Biochemistry Relationship Specialty Start Date End Date Naina Lindsey MD [address] [place] [address] PCP - General 03/19/10 08/25/16 documented as of this encounter
--- OUTSIDE RECORDS SUMMARY | 2023-12-29 14:13 | XMS_ITS | Encounter Summary ---
Author Organization [facility] Address [address] [place] [address] Care Team Providers Care Central Supply Tech Name Role Phone César Robert MD, Naina Primary Care Provider [phone] Reason for Visit * Reason Onset Date Comments Appointment Related 09/29/2019 Encounter Details Date Type Department Care Team (Late st Contact Info) Description 09/29/2019 Telephone [facility] Rehabilitation Therapy - [address] [id number] Therapy, Physical Appointment Related Social History Tobacco [...] PT, DPT and Ramin Samuel ATP from [employer]. She confirmed their availability for this date/time. Gretchen Dietz MA 09/29/2019 11:11 documented in this encounter Plan of Treatment Not on file documented as of this encounter Visit Diagnoses Not on filedocumented in this encounter Care Teams Central Supply Tech Relationship Specialty Start Date End Date Naina Lindsey MD [address] [place] [address] PCP - General 02/13/15 documented as of this encounter
--- OUTSIDE RECORDS SUMMARY | 2023-12-29 14:13 | XMS_ITS | Encounter Summary ---
Author Organization [facility] Address [address] [place] [address] Care Team Providers Care Deck Engine Operator Name Role Phone César Robert MD, Naina Primary Care Provider [phone] Encounter Details Date Type Department Care Team (Late st Contact Info) Description 07/01/2023 Lab Requisition [facility] Pathology & Laboratory Medicine - [address] [id number] Outr Resulting Lab, Provider Social History Tobacco [...] 85 - 499 mg/dL 07/02/2023 11:39 EST [facility] Blood VENOUS BLOOD / Unknown 07/01/2023 10:52 EST 07/01/2023 21:19 EST Provider Outr Resulting Lab CHEMISTRY & BLOOD GAS ORDERABLES Performing Organization Address City/[facility] Co de Phone Number [facility] [address] [place] [address] * (ABNORMAL) IGG (07/01/2023 10:52 EST) IgG 1,631(H) 610 - 1,616 mg/dL 07/02/2023 11:39 EST [facility] Blood VENOUS BLOOD / Unknown 07/01/2023 10:52 EST 07/01/2023 21:19 EST Provider Outr Resulting Lab CHEMISTRY & BLOOD GAS ORDERABLES Performing Organization Address City/[facility] Co de Phone Number [facility] [address] [place], [place] [address] documented in this encounter Visit Diagnoses Not on filedocumented in this encounter Care Teams Deck Engine Operator Relationship Specialty Start Date End Date Naina Lindsey MD [address] [place] [address] PCP - General 02/13/15 documented as of this encounter
--- OUTSIDE RECORDS SUMMARY | 2023-12-29 14:13 | XMS_ITS | Encounter Summary ---
Author Organization [facility] Address [address] [place] [address] Care Team Providers Care Bonderizer Operator Name Role Phone César Robert MD, Naina Primary Care Provider [phone] Reason for Visit * Reason Onset Date Comments Appointment Related 03/03/2019 Encounter Details Date Type Department Care Team (Late st Contact Info) Description 03/03/2019 Telephone [facility] Rehabilitation Therapy - [address] [phone] Therapy, Physical Appointment Related Social History Tobacco [...] for the wheelchair clinic appointment here at [facility] from 02-05. GRETCHEN DIETZ MA 03/03/2019 8:43 documented in this encounter Plan of Treatment Not on file documented as of this encounter Visit Diagnoses Not on filedocumented in this encounter Care Teams Bonderizer Operator Relationship Specialty Start Date End Date Naina Lindsey MD [address] [place] [address] PCP - General 02/13/15 documented as of this encounter
--- OUTSIDE RECORDS SUMMARY | 2023-12-29 14:13 | XMS_ITS | Encounter Summary ---
Author Organization [facility] Address [address] [place] [address] Care Team Providers Care Solutions Development Analyst Name Role Phone César Robert MD, Naina Primary Care Provider [phone] Reason for Visit * Reason Onset Date Comments Appointment Related 11/05/2018 Encounter Details Date Type Department Care Team (Late st Contact Info) Description 11/05/2018 Telephone [facility] Rehabilitation Therapy - [address] [address] Therapist, Physical, PT Appointment Related Social History Tobacco Use Types Packs/Day Years Used Date Smoking Tobacco: Never Assessed Sex and Gender Information Value Date Recorded Sex Assigned at Not on file Gender Identity Not on file Sexual Orientation Not on file documented as of this encounter Miscellaneous Notes * Telephone Encounter - Gretchen Dietz - 11/05/2018 1344 EDT [facility] [address] [address] Person providing information? Fernanda - Caregiver Guardian: - Phone number: [phone] 1. Who recommended that you be seen [...] additional questionnaire (if needed)? - Gretchen Dietz [facility] - [address] [address] Telephone Intake Information for Scheduling NEW Patients [...] on filedocumented in this encounter Care Teams Solutions Development Analyst Relationship Specialty Start Date End Date Naina Lindsey MD [address] [place] [address] PCP - General 02/13/15 documented as of this encounter
--- OUTSIDE RECORDS SUMMARY | 2023-12-29 14:13 | XMS_ITS | Encounter Summary ---
Author Organization [facility] Address [address] [place] [address] Care Team Providers Care Daily Sales Audit Clerk Name Role Phone César Robert MD, Naina Primary Care Provider [phone] Reason for Visit * Reason Onset Date Comments Appointment Related 02/13/2015 Encounter Details Date Type Department Care Team (Late st Contact Info) Description 02/13/2015 Telephone [facility] Rehabilitation Therapy - [address] [address] Therapy, Outpatient, Appointment Related Social History Tobacco Use Types Packs/Day Years Used Date Smoking Tobacco: Never Assessed Sex and Gender Information Value Date Recorded Sex Assigned at Not on file Gender Identity Not on file Sexual Orientation Not on file documented as of this encounter Miscellaneous Notes * Telephone Encounter - Mile Ronquillo - 02/13/2015 1102 EDT [facility] [address] [address] Person providing information? Mother Guardian: Mother Phone number: [phone] 1. Who recommended that you be seen [...] device? Smart Talk Who prescribed/acquired for you? [place] [employer] project -through the school 24. Do you have any other requests, comments, questions you would like to add prior to your appt? Smart talk needs to work with chair better 25. To whom should we send an additional questionnaire (if needed)? -- [facility] - [address] [address] Telephone Intake Information for Scheduling NEW Patients [...] total therapy visits (PT, OT, and MANAGER ANDROID combined) between 04-27-14 and 04-26-15. If the patient has exceeded 30 visits already, further therapy will not be covered by their insurance. Date: Tuesday April 07, 2015 Therapist: Candelaria Jaquez, PT @ 1:15 Location: [facility] Name of Supplier: [employer] Name of Rep: Ramin @ 1:45 Reason For Appt: manual Vs. Power Pressure Mapping? no Mile Ronquillo documented in this encounter Plan of Treatment Not on file documented as of this encounter Visit Diagnoses Not on filedocumented in this encounter Care Teams Daily Sales Audit Clerk Relationship Specialty Start Date End Date Naina Lindsey MD [address] [place] [address] PCP - General 02/13/15 documented as of this encounter
--- OUTSIDE RECORDS SUMMARY | 2023-12-29 14:13 | XMS_ITS | Encounter Summary ---
Author Organization [facility] Address [address] [place] [address] Care Team Providers Care Forge Utility Worker Name Role Phone César Robert MD, Naina Primary Care Provider [phone] Encounter Details Date Type Department Care Team (Latest Contact Info) Description 07/24/2015 12:40 EDT - 07/24/2015 23:59 EDT Hospital Encounter [address] [address] Naina Lindsey MD [address] [place], [place] [address] Discharge Disposition: Auto Discharge Social History Tobacco [...] on filedocumented in this encounter Care Teams Forge Utility Worker Relationship Specialty Start Date End Date Naina Lindsey MD [address] [place] [address] PCP - General 02/13/15 documented as of this encounter
--- OUTSIDE RECORDS SUMMARY | 2023-12-29 14:13 | XMS_ITS | Encounter Summary ---
Author Organization [facility] Address [address] [place] [address] Care Team Providers Care Pattern Illustrator Name Role Phone César Robert MD, Naina Primary Care Provider [phone] Reason for Visit * Reason Onset Date Comments Appointment Related 11/26/2018 Encounter Details Date Type Department Care Team (Late st Contact Info) Description 11/26/2018 Telephone [facility] Rehabilitation Therapy - [address] [address] Therapist, Physical, PT Appointment Related Social History [...] on filedocumented in this encounter Care Teams Pattern Illustrator Relationship Specialty Start Date End Date Naina Lindsey MD [address] [place] [address] [place] [address] PCP - General 02/13/15 documented as of this encounter
--- OUTSIDE RECORDS SUMMARY | 2023-12-29 14:13 | XMS_ITS | Encounter Summary ---
Author Organization [facility] Address [address] [place] [address] Care Team Providers Care Cable Technician Name Role Phone César Robert MD, Naina Primary Care Provider [phone] Reason for Visit * Reason Onset Date Comments Appointment Related 03/01/2015 Encounter Details Date Type Department Care Team (Late st Contact Info) Description 03/01/2015 Telephone [facility] Rehabilitation Therapy - [address] [address] Therapy, Outpatient, Appointment Related Social History Tobacco [...] chair. After discussing this with Phyllis Whitman CCC-SIDE SPLITTER and the [employer] it was determined that we needed more info and should acquire the SIDE SPLITTER notes from the patient's pathologist at her high school. Spoke with patient's student aid from [employer], Mesha Espinal. She indicates that the bracket that holds the Smart Talk device hits every door frame that they go through, and would like this remedied. Mesha states that there are no unmet SIDE SPLITTER needs at this time. I indicated to Mesha that Candelaria Jaquez PT should be able to address this need at the patient's [facility] appointment on 04/07/15. documented in this encounter Plan of Treatment Not on file documented as of this encounter Visit Diagnoses Not on filedocumented in this encounter Care Teams Cable Technician Relationship Specialty Start Date End Date Naina Lindsey MD [address] [place] [address] PCP - General 02/13/15 documented as of this encounter
--- OUTSIDE RECORDS SUMMARY | 2023-12-29 14:13 | XMS_ITS | Encounter Summary ---
Author Organization [facility] Address [address] [place] [address] Care Team Providers Care Oracle Consultant Name Role Phone César Robert MD, Naina Primary Care Provider [phone] Reason for Visit * Reason Onset Date Comments Appointment Related 04/13/2019 Encounter Details Date Type Department Care Team (Late st Contact Info) Description 04/13/2019 Telephone [facility] Rehabilitation Therapy - [address] [phone] Therapy, Physical Appointment Related Social History Tobacco [...] erickson Cristobal upcoming wheelchair appointment here at [email or web address] on 05/06 from 2-4. She confirmed they were available for the date/time. Gretchen Dietz MA 04/13/2019 15:19 documented in this encounter Plan of Treatment Not on file documented as of this encounter Visit Diagnoses Not on filedocumented in this encounter Care Teams Oracle Consultant Relationship Specialty Start Date End Date Naina Lindsey MD [address] [place] [address] [place], [place] [id number] PCP - General 02/13/15 documented as of this encounter
--- OUTSIDE RECORDS SUMMARY | 2023-12-29 14:13 | XMS_ITS | Encounter Summary ---
Author Organization [facility] Address [address] [place] [address] Care Team Providers Care Radiologic Tech Name Role Phone César Robert MD, Naina Primary Care Provider [phone] Encounter Details Date Type Department Care Team (Latest Contact Info) Description 12/04/2015 19:02 EDT - 12/04/2015 23:59 EDT Hospital Encounter [facility] [address] [place] [address] Leonid Candelaria, PT [address] [place] [id number] Andrade Lux MD [address] [facility] [address] [id number] Naina Lindsey MD [address] [place], [place] [address] Discharge Disposition: Auto Discharge Social History Tobacco [...] on filedocumented in this encounter Care Teams Radiologic Tech Relationship Specialty Start Date End Date Naina Lindsey MD [address] [place] [address] PCP - General 02/13/15 documented as of this encounter
--- OUTSIDE RECORDS SUMMARY | 2023-12-29 14:13 | XMS_ITS | Encounter Summary ---
Author Organization [facility] Address [address] [place] [address] Care Team Providers Care Meeting Coordinator Name Role Phone César Robert MD, Naina Primary Care Provider [phone] Reason for Visit * Reason Onset Date Comments Appointment Related 10/31/2019 Encounter Details Date Type Department Care Team (Late st Contact Info) Description 10/31/2019 Telephone [facility] Rehabilitation Therapy - [address] [address] Therapy, Physical Appointment Related Social History Tobacco [...] occur in two business days time at [facility].. Gretchen Dietz MA 10/31/2019 14:41 documented in this encounter Plan of Treatment Not on file documented as of this encounter Visit Diagnoses Not on filedocumented in this encounter Care Teams Meeting Coordinator Relationship Specialty Start Date End Date Naina Lindsey MD [address] [place] [address] PCP - General 02/13/15 documented as of this encounter
--- OUTSIDE RECORDS SUMMARY | 2023-12-29 14:13 | XMS_ITS | Encounter Summary ---
Author Organization [facility] Address [address] [place] [address] Care Team Providers Care Local Superintendent Name Role Phone César Robert MD, Naina Primary Care Provider [phone] Reason for Visit * Reason Onset Date Comments Appointment Related 10/25/2019 Encounter Details Date Type Department Care Team (Late st Contact Info) Description 10/25/2019 Telephone [facility] Rehabilitation Therapy - [address] [address] Therapy, Physical Appointment Related Social History Tobacco [...] wheelchair clinic appointment, to occur tomorrow at [facility]. They confirmed their availability for this date/time. Gretchen Dietz MA 10/25/2019 15:15 documented in this encounter Plan of Treatment Not on file documented as of this encounter Visit Diagnoses Not on filedocumented in this encounter Care Teams Local Superintendent Relationship Specialty Start Date End Date Naina Lindsey MD [address] [place], [place] [address] PCP - General 02/13/15 documented as of this encounter
--- OUTSIDE RECORDS SUMMARY | 2023-12-29 14:13 | XMS_ITS | Encounter Summary ---
Author Organization [facility] Address [address] [place] [address] Care Team Providers Care Air Tube Releaser Name Role Phone César Robert MD, Naina Primary Care Provider [phone] Reason for Visit * Reason Onset Date Comments Appointment Related 03/01/2015 Encounter Details Date Type Department Care Team (Late st Contact Info) Description 03/01/2015 Telephone [facility] Rehabilitation Therapy - [address] [phone] Therapy, Outpatient, Appointment Related Social History Tobacco [...] by Candelaria Jaquez PT and Phyllis Whitman CCC-GEOSPATIAL SCIENTIST : Phyllis indicates she may need to do a Speech Language Evaluation for this patient. I have called and relayed this information to the patient's mother : Patient is part of the [facility] - being seen by their Speech Language Pathologists : Zina Thomas and Osman Rodriguez. Per Phyllis's: GEOSPATIAL SCIENTIST notes need to be obtained so that she can determine the length/scope of the patient's SLE appointment so that it may be properly scheduled. I will contact the [employer] to request these records. documented in this encounter Plan of Treatment Not on file documented as of this encounter Visit Diagnoses Not on filedocumented in this encounter Care Teams Air Tube Releaser Relationship Specialty Start Date End Date Naina Lindsey MD [address] [place] [address] PCP - General 02/13/15 documented as of this encounter
--- OUTSIDE RECORDS SUMMARY | 2023-12-29 14:13 | XMS_ITS | Encounter Summary ---
Author Organization [facility] Address [address] [place] [address] Care Team Providers Care Index Editor Name Role Phone César Robert MD, Naina Primary Care Provider [phone] Encounter Details Date Type Department Care Team (Latest Contact Info) Description 08/24/2018 17:22 EDT - 08/24/2018 23:59 EDT Hospital Encounter [address] [address] Unknown, Provider, Discharge Disposition: Home or Self [...] Code Departure Means Destination Home or Self Long Term documented in this encounter Plan of Treatment Not on file documented as of this encounter Visit Diagnoses Not on filedocumented in this encounter Care Teams Index Editor Relationship Specialty Start Date End Date Naina Lindsey MD [address] [place] [address] [place] [address] PCP - General 02/13/15 documented as of this encounter
--- OUTSIDE RECORDS SUMMARY | 2023-12-29 14:13 | XMS_ITS | Encounter Summary ---
Author Organization [facility] Address [address] [place] [address] Care Team Providers Care Clinical Resource Coordinator Name Role Phone César Robert MD, Naina Primary Care Provider [phone] Encounter Details Date Type Department Care Team (Late st Contact Info) Description 12/04/2023 Lab Requisition [facility] Pathology & Laboratory Medicine - [address] [address] Outr Resulting Lab, Provider Social History Tobacco [...] 18:03 EDT [facility] Comment: Suggest ordering C-Reactive Protein Reference Range: ??Low Risk: ? <1.0 mg/L ??Average Risk: ?? 1.0 - 3.0 mg/L ??High Risk: ?>3.0 mg/L ??Indeterminate*: >10.0 mg/L ??*May be an indication of another source of inflammation or infection Blood VENOUS BLOOD / Unknown 12/04/2023 10:00 EDT 12/04/2023 17:37 EDT Provider Outr Resulting Lab CHEMISTRY & BLOOD GAS ORDERABLES Performing Organization Address City/State/[facility] Co de Phone Number [facility] [address] [place] [address] documented in this encounter Visit Diagnoses Not on filedocumented in this encounter Care Teams Clinical Resource Coordinator Relationship Specialty Start Date End Date Naina Lindsey MD [address] [place] [address] PCP - General 02/13/15 documented as of this encounter
--- OUTSIDE RECORDS SUMMARY | 2023-12-29 14:13 | XMS_ITS | Encounter Summary ---
Author Organization [facility] Address [address] [place] [address] Care Team Providers Care Assistant Business Manager Name Role Phone César Robert MD, Naina Primary Care Provider [phone] Reason for Visit * Reason Onset Date Comments Appointment Related 07/20/2015 Encounter Details Date Type Department Care Team (Late st Contact Info) Description 07/20/2015 Telephone [facility] Rehabilitation Therapy - [address] [address] Therapy, Outpatient, Appointment Related Social History Tobacco [...] filedocumented in this encounter Care Teams Assistant Business Manager Relationship Specialty Start Date End Date Naina Lindesy MD [address] [place] [address] PCP - General 02/13/15 documented as of this encounter
--- OUTSIDE RECORDS SUMMARY | 2023-12-29 14:13 | XMS_ITS | Encounter Summary ---
Author Organization [facility] Address [address] [place] [address] Care Team Providers Care Roofer Name Role Phone César Robert MD, Naina Primary Care Provider [phone] Encounter Details Date Type Department Care Team (Latest Contact Info) Description 05/29/2015 17:07 EST - 05/29/2015 23:59 EST Hospital Encounter [address] [address] Naina Lindsey MD [address] [place], [place] [address] Discharge Disposition: Home or Self Care Social [...] Code Departure Means Destination Home or Self [facility] documented in this encounter Plan of Treatment Not on file documented as of this encounter Visit Diagnoses Not on filedocumented in this encounter Care Teams Roofer Relationship Specialty Start Date End Date Naina Lindsey MD [address] [facility] [place] [address] PCP - General 02/13/15 documented as of this encounter
--- OUTSIDE RECORDS SUMMARY | 2023-12-29 14:13 | XMS_ITS | Referral Summary ---
Author Organization [facility] Address [address] [place] [address] Care Team Providers Care Door Liner Helper Name Role Phone César Robert MD, Naina Primary Care Provider [phone] Encounters Date Type Department Care Team Description 12/04/[address] [facility] Pathology & Laboratory Medicine - [facility] [address] [place] [address] Outr Resulting Lab, Provider from Last 3 [...] appointments, call [facility] dual living providers [facility]ita: [phone]. No additional problems on file Social History [...] >15.00 See Note mg/L 12/04/2023 18:03 EDT [facility] Comment: Suggest ordering C-Reactive Protein Reference Range: ??Low Risk: ? <1.0 mg/L ??Average Risk: ?? 1.0 - 3.0 mg/L ??High Risk: ?>3.0 mg/L ??Indeterminate*: >10.0 mg/L ??*May be an indication of another source of inflammation or infection Blood VENOUS BLOOD / Unknown 12/04/2023 10:00 EDT 12/04/2023 17:37 EDT Provider Outr Resulting Lab CHEMISTRY & BLOOD GAS ORDERABLES Performing Organization Address [facility]/State/[facility] Co de Phone Number [facility] [address] [place] [address] from Last 3 Months Care Teams Door Liner Helper Relationship Specialty Start Date End Date Naina Lindsey MD [address] [place] [address] PCP - General 02/13/15
--- OUTSIDE RECORDS SUMMARY | 2023-12-29 14:13 | XMS_ITS | Encounter Summary ---
Author Organization [facility] Address [address] [place] [address] Care Team Providers Care Link Cutter Name Role Phone César Robert MD, Naina Primary Care Provider [phone] Reason for Visit * Reason Onset Date Comments Appointment Related 11/04/2018 Encounter Details Date Type Department Care Team (Late st Contact Info) Description 11/04/[address] [facility] Rehabilitation Therapy - [address] [address] Therapist, Physical, PT Appointment Related Social History [...] on filedocumented in this encounter Care Teams Link Cutter Relationship Specialty Start Date End Date Naina Lindsey MD [address] [place] [address] [place], [place] [address] PCP - General 02/13/15 documented as of this encounter
--- OUTSIDE RECORDS SUMMARY | 2023-12-29 14:13 | XMS_ITS | Encounter Summary ---
Author Organization [facility] Address [address] [place] [address] Care Team Providers Care Strand And Binder Controller Name Role Phone César Robert MD, Naina Primary Care Provider [phone] Reason for Visit * Reason Onset Date Comments Appointment Related 11/30/2015 Encounter Details Date Type Department Care Team (Late st Contact Info) Description 11/30/2015 Telephone [facility] Rehabilitation Therapy - [address] [address] Therapy, Outpatient, Appointment Related Social History Tobacco [...] on filedocumented in this encounter Care Teams Strand And Binder Controller Relationship Specialty Start Date End Date Naina Lindsey MD [address] [place] [address] PCP - General 02/13/15 documented as of this encounter
--- OUTSIDE RECORDS SUMMARY | 2023-12-29 14:13 | XMS_ITS | Encounter Summary ---
Author Organization [facility] Address [address] [place] [address] Care Team Providers Care Tour Counselor Name Role Phone César Robert MD, Naina Primary Care Provider [phone] Reason for Visit * Reason Onset Date Comments Appointment Related 03/02/2019 Encounter Details Date Type Department Care Team (Late st Contact Info) Description 03/02/2019 Telephone [facility] Rehabilitation Therapy - [address] [address] Therapy, Physical Appointment Related Social History Tobacco Use Types Packs/Day Years Used Date Smoking Tobacco: Never Assessed Sex and Gender Information Value Date Recorded Sex Assigned at Not on file Gender Identity Not on file Sexual Orientation Not on file documented as of this encounter Miscellaneous Notes * Telephone Encounter - Gretchen Diezt MA - 03/02/2019 7784 EST Voicemail message left for this patient asking that she call back into the wheelchair clinic at [phone] to confirm her availability for a custom molding appointment here at [facility] with Candelaria Jaquez, PT, DPT and Ramin Samuel ATP from [employer] for Thu04/06/19, 02-05. GRETCHEN DIETZ MA 03/02/2019 15:46 documented in this encounter Plan of Treatment Not on file documented as of this encounter Visit Diagnoses Not on filedocumented in this encounter Care Teams Tour Counselor Relationship Specialty Start Date End Date Naina Lindsey MD [address] [place] [address] PCP - General 02/13/15 documented as of this encounter
--- OUTSIDE RECORDS SUMMARY | 2023-12-29 14:13 | XMS_ITS | Encounter Summary ---
Author Organization [facility] Address [address] [place] [address] Care Team Providers Care Rater Associate Name Role Phone César Robert MD, Naina Primary Care Provider [phone] Reason for Visit * Reason Onset Date Comments Appointment Related 09/27/2019 Encounter Details Date Type Department Care Team (Late st Contact Info) Description 09/27/2019 Telephone [facility] Rehabilitation Therapy - [address] [phone] Therapy, Physical Appointment Related Social History Tobacco Use Types Packs/Day Years Used Date Smoking Tobacco: Never Assessed Sex and Gender Information Value Date Recorded Sex Assigned at Not on file Gender Identity Not on file Sexual Orientation Not on file documented as of this encounter Miscellaneous Notes * Telephone Encounter - Gretchen Ditez MA - 09/27/2019 1530 EDT VM left [...] on filedocumented in this encounter Care Teams Rater Associate Relationship Specialty Start Date End Date Naina Lidnsey MD [address] [place] [address] PCP - General 02/13/15 documented as of this encounter
--- OUTSIDE RECORDS SUMMARY | 2023-12-29 14:13 | XMS_ITS | Encounter Summary ---
Author Organization [facility] Address [address] [place] [address] Care Team Providers Care Supervisor Grinding Name Role Phone César Robert MD, Naina Primary Care Provider [phone] Reason for Visit * Reason Onset Date Comments Appointment Related 05/14/2015 Encounter Details Date Type Department Care Team (Late st Contact Info) Description 05/14/2015 Telephone [facility] Rehabilitation Therapy - [address] [phone] Therapy, Outpatient, Appointment Related Social History Tobacco [...] filedocumented in this encounter Care Teams Supervisor Grinding Relationship Specialty Start Date End Date Naina Lindsey [place] [address] PCP - General 02/13/15 documented as of this encounter
--- OUTSIDE RECORDS SUMMARY | 2023-12-29 14:13 | XMS_ITS | Encounter Summary ---
Author Organization [facility] Address [address] [place] [address] Care Team Providers Care Net C Developer Name Role Phone César Robert MD, Naina Primary Care Provider [phone] Reason for Visit * Reason Onset Date Comments DME 08/11/2019 Encounter Details Date Type Department Care Team (Late st Contact Info) Description 08/11/2019 Telephone [facility] Rehabilitation Therapy - [facility] [address] [place], [place] [address] Candelaria Jaquez, ELVIRA [address] [place] [address] DME Social History Tobacco Use [...] filedocumented in this encounter Care Teams Net C Developer Relationship Specialty Start Date End Date Naina Lindsey MD [address] [place] [address] PCP - General 02/13/15 documented as of this encounter
--- OUTSIDE RECORDS SUMMARY | 2023-12-29 14:13 | XMS_ITS | Encounter Summary ---
Author Organization [facility] Address [address] [place] [address] Care Team Providers Care Multimedia Educational Specialist Name Role Phone César Robert MD, Naina Primary Care Provider [phone] Reason for Visit * Reason Onset Date Comments Appointment Related 05/25/2015 Encounter Details Date Type Department Care Team (Late st Contact Info) Description 05/25/2015 Telephone [facility] Rehabilitation Therapy - [address] [phone] Therapy, Outpatient, Appointment Related Social History Tobacco [...] on filedocumented in this encounter Care Teams Multimedia Educational Specialist Relationship Specialty Start Date End Date Naina Lindsey MD [address] [place] [address] PCP - General 02/13/15 documented as of this encounter
--- OUTSIDE RECORDS SUMMARY | 2023-12-29 14:13 | XMS_ITS | Encounter Summary ---
Author Organization [facility] Address [address] [place] [address] Care Team Providers Care Gas System Operator Name Role Phone César Robert MD, Naina Primary Care Provider [phone] Encounter Details Date Type Department Care Team (Latest Contact Info) Description 04/03/2015 9:31 EST - 04/03/2015 23:59 EST Hospital Encounter [address] [address] Naina Lindsey MD [address] [place], [place] [id number] Discharge Disposition: Home or Self Care Social [...] Departure Means Destination Home or Self Senior Care documented in this encounter Plan of Treatment Not on file documented as of this encounter Visit Diagnoses Not on filedocumented in this encounter Care Teams Gas System Operator Relationship Specialty Start Date End Date Naina Lindsey MD [address] [address] PCP - General 02/13/15 documented as of this encounter
--- OUTSIDE RECORDS SUMMARY | 2023-12-29 14:13 | XMS_ITS | Encounter Summary ---
Author Organization [facility] Address [address] [place] [address] Care Team Providers Care Water Operator Name Role Phone César Robert MD, Naina Primary Care Provider [phone] Encounter Details Date Type Department Care Team (Late st Contact Info) Description 04/02/[address] [facility] Pathology & Laboratory Medicine - [address] [address] Outr Resulting Lab, Provider Social History Tobacco [...] Outr Resulting Lab MICROBIOLOGY - GENERAL ORDERABLES [facility] [address] [place] [address] * COVID-19 TESTING (04/02/2021 10:55 EST) COVID-19 rt-PCR Result Negative Negative 04/03/2021 14:17 EST [facility] Comment: This test has [...] performed using the eve SARS-CoV-2 assay ([employer] on the Eve 6800 System Performing Lab Eve [address] [facility] Lab 04/03/2021 14:17 EST [facility] Swab 04/02/2021 10:5 5 EST 04/02/2021 22:22 EST Provider Outr Resulting Lab MICROBIOLOGY - GENERAL ORDERABLES [facility] [address] [place] [address] documented in this encounter Visit Diagnoses Not on filedocumented in this encounter Care Teams Water Operator Relationship Specialty Start Date End Date Naina Lindsey MD [address] [place] [address] [place] [address] PCP - General 02/13/15 documented as of this encounter
--- OUTSIDE RECORDS SUMMARY | 2023-12-29 14:13 | XMS_ITS | Encounter Summary ---
Author Organization [facility] Address [address] [place] [address] Care Team Providers Care Clinical Social Work Aide Name Role Phone César Robert MD, Naina Primary Care Provider [phone] Reason for Visit * Reason Onset Date Comments Appointment Related 04/06/2019 Encounter Details Date Type Department Care Team (Late st Contact Info) Description 04/06/2019 Telephone [facility] Rehabilitation Therapy - [address] [address] Therapy, Physical Appointment Related Social History Tobacco [...] filedocumented in this encounter Care Teams Clinical Social Work Aide Relationship Specialty Start Date End Date Naina Lindsey MD [address] [place], [place] [address] PCP - General 02/13/15 documented as of this encounter
--- OUTSIDE RECORDS SUMMARY | 2023-12-29 14:13 | XMS_ITS | Encounter Summary ---
Author Organization [facility] Address [address] [place] [address] Care Team Providers Care Admissions Dean Name Role Phone César Robert MD, Naina Primary Care Provider [phone] Reason for Visit * Reason Onset Date Comments Appointment Related 04/04/2019 Encounter Details Date Type Department Care Team (Late st Contact Info) Description 04/04/2019 Telephone [facility] Rehabilitation Therapy - [address] [phone] Therapy, Physical Appointment Related Social History Tobacco [...] on filedocumented in this encounter Care Teams Admissions Dean Relationship Specialty Start Date End Date Naina Lindsey MD [address] [place], [place] [id number] PCP - General 02/13/15 documented as of this encounter
--- OUTSIDE RECORDS SUMMARY | 2023-12-29 14:13 | XMS_ITS | Encounter Summary ---
Author Organization [facility] Address [address] [place] [address] Care Team Providers Care Presidential Support Specialist Name Role Phone César Robert MD, Naina Primary Care Provider [phone] Encounter Details Date Type Department Care Team (Late st Contact Info) Description 04/24/2023 Lab Requisition [facility] Pathology & Laboratory Medicine - [address] [id number] Outr Resulting Lab, Provider Social History Tobacco [...] Surface Ag Negative Negative 04/24/2023 22:33 EST [facility] Hep C Antibody Negative Negative 04/24/2023 22:33 EST [facility] Hepatitis A Antibody, IgM Negative Negative 04/24/2023 22:33 EST [facility] Comment:The results of this assay can be falsely lowered due to the consumption of Biotin. Hepatitis B Core Ab, Total Negative Negative 04/24/2023 22:33 EST [facility] Blood VENOUS BLOOD / Unknown 04/24/2023 10:00 EST 04/24/2023 21:06 EST Provider Outr Resulting Lab CHEMISTRY & BLOOD GAS ORDERABLES [facility] [address] [place] [address] documented in this encounter Visit Diagnoses Not on filedocumented in this encounter Care Teams Presidential Support Specialist Relationship Specialty Start Date End Date Naina Lindsey MD [address] [place] [address] PCP - General 02/13/15 documented as of this encounter
--- OUTSIDE RECORDS SUMMARY | 2023-12-29 14:13 | XMS_ITS | Encounter Summary ---
Author Organization [facility] Address [address] [place] [address] Care Team Providers Care Reed Worker Name Role Phone César Robert MD, Naina Primary Care Provider [phone] Reason for Visit * Reason Onset Date Comments Other 04/03/2015 Encounter Details Date Type Department Care Team (Late st Contact Info) Description 04/03/2015 Telephone [facility] Rehabilitation Therapy - [facility] [address] [place], [place] [phone] Candelaira Jaquez, PT [address] [place] [address] Other Social History Tobacco Use [...] on filedocumented in this encounter Care Teams Reed Worker Relationship Specialty Start Date End Date Naina Lindsey MD [address] [place], [place] [phone] PCP - General 02/13/15 documented as of this encounter
--- OUTSIDE RECORDS SUMMARY | 2023-12-29 14:13 | XMS_ITS | Encounter Summary ---
Author Organization [facility] Address [address] [place] [address] Care Team Providers Care A/C Tech Name Role Phone César Robert MD, Naina Primary Care Provider [phone] Encounter Details Date Type Department Care Team (Late st Contact Info) Description 07/01/2023 Lab Requisition [facility] Pathology & Laboratory Medicine - [address] [phone] Outr Resulting Lab, Provider Social History Tobacco [...] IgA <4.0 <20.0 CU 07/02/2023 10:22 EST [facility] Comment: Negative: <20.0 CU Weak Positive: 20.0-30.0 CU Positive: >30.0 CU Results were obtained with the [employer] Flash h-tTG IgA chemiluminescent immunoassay. Values obtained with different manufacturers' assay methods may not be used interchangeably. Blood VENOUS BLOOD / Unknown 07/01/2023 10:52 EST 07/01/2023 21:12 EST Provider Outr Resulting Lab IMMUNOLOGY A ND SEROLOGY ORDERABLES Performing Organization Address City/State/[facility] Co de Phone Number [facility] [address] [place], [place] [phone] documented in this encounter Visit Diagnoses Not on filedocumented in this encounter Care Teams A/C Tech Relationship Specialty Start Date End Date Naina Lindsey MD [address] [place] [address] PCP - General 02/13/15 documented as of this encounter
--- OUTSIDE RECORDS SUMMARY | 2023-12-29 14:13 | XMS_ITS | Encounter Summary ---
Author Organization [facility] Address [address] [place] [address] Care Team Providers Care Merchandise Executive Name Role Phone César Robert MD, Naina Primary Care Provider [phone] Reason for Visit * Reason Onset Date Comments Appointment Related 03/30/2015 Encounter Details Date Type Department Care Team (Late st Contact Info) Description 03/30/2015 Telephone [facility] Rehabilitation Therapy - [address] [address] Therapy, Outpatient, Appointment Related Social History Tobacco [...] on filedocumented in this encounter Care Teams Merchandise Executive Relationship Specialty Start Date End Date Naina Lindsey MD [address] [place] [address] [place] [address] PCP - General 02/13/15 documented as of this encounter
--- OUTSIDE RECORDS SUMMARY | 2023-12-29 14:13 | XMS_ITS | Encounter Summary ---
Author Organization [facility] Address [address] [place] [address] Care Team Providers Care Career Education Teacher Name Role Phone César Robert MD, Naina Primary Care Provider [phone] Reason for Visit * Reason Onset Date Comments Appointment Related 05/04/2019 Encounter Details Date Type Department Care Team (Late st Contact Info) Description 05/04/2019 Telephone [facility] Rehabilitation Therapy - [address] [address] Therapy, Physical Appointment Related Social History Tobacco [...] on filedocumented in this encounter Care Teams Career Education Teacher Relationship Specialty Start Date End Date Naina Lindsey MD [address] [place] [address] PCP - General 02/13/15 documented as of this encounter
--- OUTSIDE RECORDS SUMMARY | 2023-12-29 14:13 | XMS_ITS | Encounter Summary ---
Author Organization [facility] Address [address] [place] [address] Care Team Providers Care Clam Digger Name Role Phone César Robert MD, Naina Primary Care Provider [phone] Reason for Visit * Reason Onset Date Comments Appointment Related 05/14/2015 Encounter Details Date Type Department Care Team (Late st Contact Info) Description 05/14/2015 Telephone [facility] Rehabilitation Therapy - [facility] [address] [place] [address] Therapy, Outpatient, Appointment Related Social [...] the original note were not included. 0 [facility]; [place] [address] May 14, 2015 Dear Javed; Per our conversation, Tana has been scheduled to be seen by the [facility] Wheelchair Assessment Team for an additional power chair evaluation. Your appointment will last for approximately 3 hours and is scheduled for: Date: Friday July 10, 2015 Time: 12:30 Place: [facility] [address] [place] [address] The evaluation team will include the following people: [facility] Rehabilitation Physical Therapist: Candelaria Jaquez PT Medical Supplier Golf Ball Inspector: Ramin from [facility] Please call to pre-register with [facility] prior to your appointment at [phone]. During the evaluation, we would like to [...] unable to make your appointment please call [phone]. *48-hour notice is required for cancellation.* We look forward to seeing you. Mile Ronquillo [facility] Rehabilitation Therapy Center [facility] documented in this encounter Plan of Treatment Not on file documented as of this encounter Visit Diagnoses Not on filedocumented in this encounter Care Teams Clam Digger Relationship Specialty Start Date End Date Naina Lindsey MD [address] [place] [address] PCP - General 02/13/15 documented as of this encounter
--- OUTSIDE RECORDS SUMMARY | 2023-12-29 14:13 | XMS_ITS | Encounter Summary ---
Author Organization [facility] Address [address] [place] [address] Care Team Providers Care Fence Post Cutter Name Role Phone César Robert MD, Naina Primary Care Provider [phone] Reason for Visit * Reason Onset Date Comments Other 01/04/2016 Encounter Details Date Type Department Care Team (Late st Contact Info) Description 01/04/2016 Telephone [facility] Rehabilitation Therapy - [address] [phone] Therapy, Outpatient, Other Social History Tobacco Use [...] I have spoken to Oliver Lozano at [facility], but he could not see in their paperwork a clear delivery timeframe. I have sent an e-mail to Ramin Samuel and Amna Giraldo at [facility] asking that someone call Javed and give her an estimate of when the chair will be delivered. documented in this encounter Plan of Treatment Not on file documented as of this encounter Visit Diagnoses Not on filedocumented in this encounter Care Teams Fence Post Cutter Relationship Specialty Start Date End Date Naina Lindsey MD [address] [place] [address] PCP - General 02/13/15 documented as of this encounter
--- OUTSIDE RECORDS SUMMARY | 2023-12-29 14:13 | XMS_ITS | Encounter Summary ---
Author Organization [facility] Address [address] [place] [address] Care Team Providers Care Protein Purification Scientist Name Role Phone César Robert MD, Naina Primary Care Provider [phone] Encounter Details Date Type Department Care Team (Latest Contact Info) Description 11/30/2018 12:49 EDT - 11/30/2018 23:59 EDT Hospital Encounter [address] [address] Lorna Bal, MOLD MAKER APPRENTICE [address] [facility] [address] [place] [phone] Discharge Disposition: Auto Discharge Social History Tobacco [...] on filedocumented in this encounter Care Teams Protein Purification Scientist Relationship Specialty Start Date End Date Naina Lindsey MD [address] [place] [address] PCP - General 02/13/15 documented as of this encounter
--- OUTSIDE RECORDS SUMMARY | 2023-12-29 14:13 | XMS_ITS | Encounter Summary ---
Author Organization [facility] Address [address] [place] [address] Care Team Providers Care Reeling Operator Name Role Phone César Robert MD, Naina Primary Care Provider [phone] Encounter Details Date Type Department Care Team [...] Outpatient Rehab Plan of Care REHABILITATION THERAPIES [facility] REHABILITATION THERAPY - [address] [address] Physical Therapy Progress Note Date of Service: [...] verbalized understanding Team Communication: MYA Pleitez from [employer] and two of Tana's caregivers were present and participated in this entire visit. A: The custom mold was created for Tana's new custom seating system. 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 Recording Engineer Goals: 8 weeks Will have a wheeled [...] Cc: Referring Provider: LIZETH Sandoval ATP from [employer] [facility] Rehabilitation Therapies Out[facility] Fax: [phone] WHEELCHAIR PRESCRIPTION 05/06/2019 Tana Cavazos 1995 [address] [place] [address] (home) [phone] (work) Insurance Policy Number 1. [place] Medicaid ACO [id number] Medical/Surgical History: Current: There is no problem [...] elbow (90 degrees)-n/a Component Wheelchair Description Justification Spray I Painter, style and model USE EXISTING WHEELCHAIR Chair [...] on the mold. ?? Incontinent cover ?? [employer] headrest mounting plate ?? [employer] headrest mount ?? To accommodate .Tana's fixed [...] Referring Provider: Lorna Bal NP Funding at [facility] [facility] [employer] Plan ATTENDING PHYSICIAN: Your [...] on filedocumented in this encounter Care Teams Reeling Operator Relationship Specialty Start Date End Date Naina Lindsey MD [address] [place] [address] PCP - General 02/13/15 documented as of this encounter
--- OUTSIDE RECORDS SUMMARY | 2023-12-29 14:13 | XMS_ITS | Encounter Summary ---
Author Organization [facility] Address [address] [place] [address] Care Team Providers Care Business Analyst Consultant Name Role Phone César Robert MD, Naina Primary Care Provider [phone] Encounter Details Date Type Department Care Team (Late st Contact Info) Description 08/24/2018 Results Only [facility] [phone] Raul Mak MD [address] [place] [address] Social History Tobacco Use Types Packs/Day [...] ? SHELTONJOHNArthur Hayes ? Accession #: ? [id number] ? : ? 1995 (Age: 23) ??F ? Collect Date: ? 08/24/2018 ? Location: ? [facility] ? Receive Date: ? 08/25/2018 ? Provider: RAUL MAK MD Copy to: JERED MARTINEZ VIDEO TAPE TRANSFERRER ? Final Pathologic Diagnosis: UTERUS AND FALLOPIAN [...] and mucin greatest dimension paratubal cyst. ? Distance Learning Administrator sections are submitted as follows: BLOCK MONTOYA 1-2- ??detached left fallopian tube cross-sections and fimbria 3-4- ??attached right fallopian tube cross-sections with paratubal cyst and fimbria 5- bilateral cervix (anterior marked by blue) 6- ??bilateral lower uterine segments (anterior marked by blue ink) 7-9- ??posterior endomyometrium including probable endometrial polyp 10-11- ??anterior endomyometrium field representative sections Dr. Mora 08/26/2018 3:08 PM End of Report [facility] 08/24/2018 11:4 5 EDT 08/25/2018 11:45 EDT Raul Mak MD PATHOLOGY ORDERABLES [facility] [address] [place] [address] documented in this encounter Visit Diagnoses Not on filedocumented in this encounter Care Teams Business Analyst Consultant Relationship Specialty Start Date End Date Naina Lindsey MD [address] [place] [address] PCP - General 02/13/15 documented as of this encounter
== END 2023-12-29 14:00 | disposition home or self-care (01) ==
LOC: NCHCN 13:59
PROVIDERS: PCP Nurse Practitioner Family; Visit Provider Nurse Practitioner Family
DX: Z45.2 Encounter for adjustment and management of vascular access device (principal)
CPT/HCPCS: 80053; 85652; 85025; 86140

== ENCOUNTER 2024-01-05 18:17 | Outpatient (REF) | payer MEDICAID, SELFPAY ==
[2024-01-05 12:29] LABS: Abs Immature Grans 0.01 10^3/uL (0.0-0.06); Absolute Basophil Count 0.03 10^3/uL (0.0-0.2); Absolute Eosinophil Count 0.06 10^3/uL (0.0-0.7); Absolute Lymphocyte Count 1.65 10^3/uL (1.2-3.4); Absolute Monocyte Count 0.31 10^3/uL (0.1-0.8); Absolute Neutrophil Count 3.63 10^3/uL (1.2-6.7); Basophils % 0.5 %; Eosinophils % 1.1 %; HCT 39.9 % (36.0-46.0); HGB 12.6 g/dL (11.2-15.7); Immature Grans % 0.2 %; MCH 26.8 pg (27.0-33.0); MCHC 31.6 % (32.0-36.0); MCV 85 fL (80-95); MPV 10.2 fL (8.0-11.0); Monocytes % 5.4 %; Neutrophils % 63.8 %; Platelet Count 341 10^3/uL (130-400); RDW 16.1 % (11.7-14.6); RDW-SD 50.8 fL; WBC 5.69 10^3/uL (4.4-10.8)
[2024-01-05 12:33] LABS: ESR 70 mm/hr (0-20)
[2024-01-05 13:17] LABS: ALT 65 U/L (14-59); AST 35 U/L (15-37); Albumin 3.4 g/dL (3.4-5.0); Alkaline Phosphatase 239 U/L (46-116); Anion Gap 12.3 mmol/L (3-11); BUN 10 mg/dL (7-18); Bilirubin, Total 0.17 mg/dL (0.2-1.0); C-Reactive Protein 6.58 mg/dL (<or=0.5); CO2 24.7 mmol/L (21.0-32.0); CREATININE 0.4 mg/dL (0.55-1.02); Calcium 9.4 mg/dL (8.5-10.1); Chloride 101 mmol/L (98-107); Estimated GFR 136.46 (mL/min/1.73m2); Glucose 71 mg/dL (74-106); Potassium 4.4 mmol/L (3.5-5.1); Sodium 138 mmol/L (136-145); Total Protein 7.9 g/dL (6.4-8.2)
--- OUTSIDE RECORDS SUMMARY | 2024-01-05 18:20 | XMS_ITS | Encounter Summary ---
Author Organization [facility] Address [facility] [place] [address] Care Team Providers Care Assistant Professor Of Art Name Role Phone Lorna Bal APRN Primary Care Provider [phone] Encounter Details Date Type Department Care Team (Late st Contact Info) Description 12/14/2023 Notes Only [place] [phone] Mesha Mckeon, RN Social History Tobacco Use Types Packs/Day Years Used Date Smoking Tobacco: Never Passive Smoke Exposure: Never Smokeless Tobacco: Never Comments:NO SMOKERS IN THE H OME Alcohol Use Standard Drinks/Week Comments No 0 (1 standard drink = 0.6 oz pur e alcohol) [facility] Utilities Answer Date Recorded In the past 12 months has e electric, gas, oil, or water [employer] threatened to shut off services in your [...] any time in the past 12 m [facility], were you homeless or living [...] on 12/11/23 PICC line was removed by [facility] documented in this encounter Plan of Treatment Upcoming Encounters Date Type Department Care Team (Late st Contact Info) Description 06/02/2024 12:30 PM EST Office Visit Infectious Disease at [facility] [place] [phone] Hollie Ambriz MD [facility] [place] [address] documented as of this encounter Visit Diagnoses Not on filedocumented in this encounter Care Teams Assistant Professor Of Art Relationship Specialty Start Date End Date Lorna Bal APRN [address] [place] [address] PCP - General Family Medicine 05/27/18 documented as of this encounter
--- OUTSIDE RECORDS SUMMARY | 2024-01-05 18:20 | XMS_ITS | Encounter Summary ---
Author Organization [facility] Address [facility] [place] [address] Care Team Providers Care Adult Neuropsychologist Name Role Phone Lorna Bal APRN Primary Care Provider [phone] Encounter Details Date Type Department Care Team (Latest Contact Info) Description 12/21/2023 Travel Social History Tobacco Use Types Packs/Day Years Used Date Smoking Tobacco: Never Passive Smoke Exposure: Never Smokeless Tobacco: Never Comments:NO SMOKERS IN THE H OME Alcohol Use Standard Drinks/Week Comments No 0 (1 standard drink = 0.6 oz pur e alcohol) [facility] Utilities Answer Date Recorded In the past 12 months has e [employer], gas, oil, or water [employer] threatened to shut off services in your [...] in a longterm (including now)? No 10/29/2023 IPV Inpatient Questions [...] EST Office [place] [address] Hollie Ambriz MD [facility] [place] [address] documented as of this encounter Visit Diagnoses Not on filedocumented in this encounter Care Teams Adult Neuropsychologist Relationship Specialty Start Date End Date Lorna Bal APRN [address] [place] [address] PCP - General Family Medicine 05/27/18 documented as of this encounter
--- OUTSIDE RECORDS SUMMARY | 2024-01-05 18:20 | XMS_ITS | Data Portability ---
Author Organization [facility] Address [address] [place] [address] Assessment Encounter Date Assessment Date Assessment LastModified by Organization Details LastModified Time 04/24/2023 04/24/2023 The total time devoted to today's encounter, including both the dxbd-ci-pqre time with the patient and/or family/caregiv er and nml-rowb-el-fa ce time I personally spent is 48 minutes. Not available 04/24/2023 09:38:15 11/10/2023 11/10/2023 The total time devoted to today's encounter, including both the kujj-mr-pwgj time with the patient and/or family/caregiv er and iyl-bble-ey-fa ce time I personally spent is 35 minutes. Hospital admission: 7.3.204 Hospital discharge 7.9.24. 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 7.10.24 FU in office: 7.16.24 [...] hepatitis panel (A+B+C), acute, serum 2022 023 [facility] (Registration ), [address] [place] [address] , [place], [address], 04/25/2023 11:53:33 CMP, serum or plasma 2022 023 [facility] (Registration ), [address] [place] [address] , [place], [address], 04/24/2023 14:57:58 CBC w/ auto diff 2022 023 [facility] (Registration ), [address] [place] [address] , [place], [address], 04/24/2023 14:43:55 C-reactiv e protein, quantitat brissa, serum or plasma [address] [facility] (Registration ), [address] [place] [address] [place], [address], 05/01/2023 11:12:20 ESR (erythroc yte sedimenta tion rate), blood [address] [facility] (Registration ), [address] [place] [address] , [place], [address], 05/01/2023 11:12:20 Referral orthopedi c surgeon referral - 2nd time sending for spasms to the right wrist/ thumb. 2023 024 [facility], [address], [place], [address], 08/24/2023 10:27:47 Procedures None recorded. Surgeries None recorded. Imaging None recorded. Medication Orders Ensure Active High Protein oral liquid 2022 023 [facility]- [address] [place], [address], 04/24/2023 09:17:52 Debrox 6.5 % ear drops 2023 024 [place] [address] [address] [place], [address], 11/10/2023 10:38:18 cholecalc iferol (vitamin D3) 125 mcg (5,000 unit) tablet 2023 024 [place] [address] [address] [place], [address], 11/10/2023 11:06:20 baclofen 15 mg tablet 2023 024 [address] [address] [address] [place], [address], 11/10/2023 10:38:17 Debrox 6.5 % ear drops 2023 024 [place] [address] [address] [place], [address], 12/25/2023 12:05:32 cholecalc iferol (vitamin D3) 125 mcg (5,000 unit) tablet 2023 024 [place] [address] [address] [place], [address], 12/25/2023 12:05:31 baclofen 15 mg tablet 2023 024 [place] [address] [address] [place], [address], 12/25/2023 12:05:30 Patient TargetsNo targets recorded. Patient Instructions Encounter Date Encounter Id Patient Instructions Last Modified By Organization Details Last Modified Time 04/24/2023 [id number] - Call Dr Augustin at [facility] - Call infectious disease at [facility] Work on improving bowels that we discussed Not available 04/24/2023 09:34:29 Reason for Referral Orthopedic Surgeon Referral for Tetraplegia 2nd time sending for spasms to the right wrist/ thumb. Referring Physician: Lorna Martinez [facility], Encounter Date: 07/24/2023 Orthopedic Surgeon Referral for Contracture of joint of hand hand specialist for right thumb pain and contracture of hand Referring Physician: Lorna Martinez [facility], Encounter Date: 07/28/2023 Results Created Date Observation Date Name Description Value Unit Range Abnormal Flag Note LastModifiedBy Organization Detail LastModifiedTime 04/03/20 23 04/03/2023 COMPL ETE BLOOD COUNT W/DIF F WBC 6.00 10_3/ uL 4.4-10 .8 normal Not Available [address] [place], [address] 04/03/2023 11:18:43 04/03/20 23 04/03/2023 COMPL ETE BLOOD COUNT W/DIF F RBC 3.44 10_6/ uL 3.93-5 .22 low Not Available [address] [place], [address] 04/03/2023 11:18:43 04/03/20 23 04/03/2023 COMPL ETE BLOOD COUNT W/DIF F HGB 9.6 g/dL 11.2-1 5.7 low Not Available [address] [place], [address] 04/03/2023 11:18:43 04/03/20 23 04/03/2023 COMPL ETE BLOOD COUNT W/DIF F HCT 29.6 % 36.0-4 6.0 low Not Available [address] [place], [address] 04/03/2023 11:18:43 04/03/20 23 04/03/2023 COMPL ETE BLOOD COUNT W/DIF F MCV 86 fL 80-95 normal Not Available Regina king [address] [place], [address] 04/03/2023 11:18:43 04/03/20 23 04/03/2023 COMPL ETE BLOOD COUNT W/DIF F MCH 27.9 pg 27.0-3 3.0 normal Not Available [address] [place], [address] 04/03/2023 11:18:43 04/03/20 23 04/03/2023 COMPL ETE BLOOD COUNT W/DIF F MCHC 32.4 % 32.0-3 6.0 normal Not Available [address] [place], [address] 04/03/2023 11:18:43 04/03/20 23 04/03/2023 COMPL ETE BLOOD COUNT W/DIF F RDW 14.7 % 11.7-1 4.6 high Not Available [address] [place], [address] 04/03/2023 11:18:43 04/03/20 23 04/03/2023 COMPL ETE BLOOD COUNT W/DIF F platelet count 524 10_3/ uL 130-40 0 high Not Available [address] [place], [address] 04/03/2023 11:18:43 04/03/20 23 04/03/2023 COMPL ETE BLOOD COUNT W/DIF F MPV 9.7 fL 8.0-11 .0 normal Not Available [address] [place], [address] 04/03/2023 11:18:43 04/03/20 23 04/03/2023 COMPL ETE BLOOD COUNT W/DIF F neutrophils % 71.9 Not Available [address] [place], [address] 04/03/2023 11:18:43 04/03/20 23 04/03/2023 COMPL ETE BLOOD COUNT W/DIF F lymphocytes % 20.8 Not Available [address] [place], [address] 04/03/2023 11:18:43 04/03/20 23 04/03/2023 COMPL ETE BLOOD COUNT W/DIF F monocytes % 5.0 Not Available [address] [place], [address] 04/03/2023 11:18:43 04/03/20 23 04/03/2023 COMPL ETE BLOOD COUNT W/DIF F eosinophils % 1.5 Not Available [address] [place], [address] 04/03/2023 11:18:43 04/03/20 23 04/03/2023 COMPL ETE BLOOD COUNT W/DIF F basophils % 0.5 Not Available [address] [place], [address] 04/03/2023 11:18:43 04/03/20 23 04/03/2023 COMPL ETE BLOOD COUNT W/DIF F immature grans % 0.3 Not Available [address] [place], [address] 04/03/2023 11:18:43 04/03/20 23 04/03/2023 COMPL ETE BLOOD COUNT W/DIF F nucleated RBC 0.0 % 0.0-0. 3 normal Not Available [address] [place], [address] 04/03/2023 11:18:43 04/03/20 23 04/03/2023 COMPL ETE BLOOD COUNT W/DIF F absolute neutrophil count 4.31 10_3/ uL 1.2-6. 7 normal Not Available [address] [place], [address] 04/03/2023 11:18:43 04/03/20 23 04/03/2023 COMPL ETE BLOOD COUNT W/DIF F absolute lymphocyte count 1.25 10_3/ uL 1.2-3. 4 normal Not Available [address] [place], [address] 04/03/2023 11:18:43 04/03/20 23 04/03/2023 COMPL ETE BLOOD COUNT W/DIF F absolute monocyte count 0.30 10_3/ uL 0.1-0. 8 normal Not Available [address] [place], [address] 04/03/2023 11:18:43 04/03/20 23 04/03/2023 COMPL ETE BLOOD COUNT W/DIF F absolute eosinophil count 0.09 10_3/ uL 0.0-0. 7 normal Not Available [address] [place], [address] 04/03/2023 11:18:43 04/03/20 23 04/03/2023 COMPL ETE BLOOD COUNT W/DIF F absolute basophil count 0.03 10_3/ uL 0.0-0. 2 normal Not Available [address] [place], [address] 04/03/2023 11:18:43 04/03/20 23 04/03/2023 LIVER PANEL total protein 7.8 g/dL 6.4-8. 2 normal Not Available [address] [place], [address] 04/03/2023 11:30:47 04/03/2004/03/2023 LIVER PANEL albumin 3.3 g/dL 3.4-5. 0 low Not Available [address] [place], [address] 04/03/2023 11:30:47 04/03/20 23 04/03/2023 LIVER PANEL bilirubin, total 0.3 mg/dL 0.2-1. 0 normal Not Available [address] [place], [address] 04/03/2023 11:30:47 04/03/2004/03/2023 LIVER PANEL alk phos 365 U/L 46-116 high Not Available [address] [place], [address] 04/03/2023 11:30:47 04/03/20 23 04/03/2023 LIVER PANEL AST 48 U/L 15-37 high Not Available Regina king [address] [place], [address] 04/03/2023 11:30:47 04/03/20 23 04/03/2023 LIVER PANEL ALT 89 U/L 14-59 high Not Available Regina king [address] [place], [address] 04/03/2023 11:30:47 04/03/20 23 04/03/2023 LIVER PANEL bilirubin, conjugated 0.1 mg/dL 0.0-0. 2 normal Not Available [address] [place], [address] 04/03/2023 11:30:47 04/03/20 23 04/03/2023 COMPR EHENS BRISSA METAB OLIC PANEL calcium 9.2 mg/dL 8.5-10 .1 normal Not Available [address] [place], [address] 04/03/2023 11:30:47 04/03/20 23 04/03/2023 COMPR EHENS BRISSA METAB OLIC PANEL glucose 144 mg/dL 74-106 high Not Available Regina king [address] [place], [address] 04/03/2023 11:30:47 04/03/20 23 04/03/2023 COMPR EHENS BRISSA METAB OLIC PANEL BUN 13 mg/dL 7-18 normal Not Available Regina king [address] [place], [address] 04/03/2023 11:30:47 04/03/20 23 04/03/2023 COMPR EHENS BRISSA METAB OLIC PANEL creatinine 0.4 mg/dL 0.55-1 .02 low Not Available [address] [place], [address] 04/03/2023 11:30:47 04/03/2004/03/2023 COMPR EHENS BRISSA METAB [...] young er-ag ed adult s. Not Available [address] [place], [address] 04/03/2023 11:30:47 04/03/20 23 04/03/2023 COMPR EHENS BRISSA METAB OLIC PANEL sodium 139 mmol/ L 136-14 5 normal Not Available [address] [place], [address] 04/03/2023 11:30:47 04/03/20 23 04/03/2023 COMPR EHENS BRISSA METAB OLIC PANEL potassium 3.8 mmol/ L 3.5-5. 1 normal Not Available [address] [place], [address] 04/03/2023 11:30:47 04/03/20 23 04/03/2023 COMPR EHENS BRISSA METAB OLIC PANEL chloride 102 mmol/ L 98-107 normal Not Available [address] [place], [address] 04/03/2023 11:30:47 04/03/20 23 04/03/2023 COMPR EHENS BRISSA METAB OLIC PANEL CO2 24.5 mmol/ L 21.0-3 2.0 normal Not Available [address] [place], [address] 04/03/2023 11:30:47 04/03/20 23 04/03/2023 COMPR EHENS BRISSA METAB OLIC PANEL anion gap 12.5 mmol/ L 3-11 high Not Available [address] [place], [address] 04/03/2023 11:30:47 04/03/20 23 04/03/2023 CREAT INE KINAS E creatine kinase 45 U/L 26-192 normal Not Available [address] [place], [address] 04/03/2023 11:30:48 04/03/2004/03/2023 C-ZONIA CTIVE PROTE IN C-reactive protein 6.28 mg/dL 0.0-0. 3 high Not Available [address] [place], [address] 04/03/2023 11:30:48 04/03/20 23 04/03/2023 ESR ESR 55 mm/HR 0-20 high Not Available [address] [place], [address] 04/03/2023 11:37:48 04/10/20 23 04/10/2023 COMPR EHENS BRISSA METAB OLIC PANEL calcium 9.3 mg/dL 8.5-10 .1 normal Not Available [address] [place], [address] 04/10/2023 12:25:49 04/10/20 23 04/10/2023 COMPR EHENS BRISSA METAB OLIC PANEL glucose 90 mg/dL 74-106 normal Not Available Regina king [address] [place], [address] 04/10/2023 12:25:49 04/10/20 23 04/10/2023 COMPR EHENS BRISSA METAB OLIC PANEL BUN 7 mg/dL 7-18 normal Not Available Regina king [address] [place], [address] 04/10/2023 12:25:49 04/10/20 23 04/10/2023 COMPR EHENS BRISSA METAB OLIC PANEL creatinine 0.3 mg/dL 0.55-1 .02 low Not Available [address] [place], [address] 04/10/2023 12:25:49 04/10/20 23 04/10/2023 COMPR EHENS [...] young er-ag ed adult s. Not Available [address] [place], [address] 04/10/2023 12:25:49 04/10/20 23 04/10/2023 COMPR EHENS BRISSA METAB OLIC PANEL total protein 7.5 g/dL 6.4-8. 2 normal Not Available [address] [place], [address] 04/10/2023 12:25:49 04/10/20 23 04/10/2023 COMPR EHENS BRISSA METAB OLIC PANEL albumin 3.0 g/dL 3.4-5. 0 low Not Available [address] [place], [address] 04/10/2023 12:25:49 04/10/20 23 04/10/2023 COMPR EHENS BRISSA METAB OLIC PANEL bilirubin, total 0.2 mg/dL 0.2-1. 0 normal Not Available [address] [place], [address] 04/10/2023 12:25:49 04/10/20 23 04/10/2023 COMPR EHENS BRISSA METAB OLIC PANEL alk phos 414 U/L 46-116 high Not Available [address] [place], [address] 04/10/2023 12:25:49 04/10/20 23 04/10/2023 COMPR EHENS BRISSA METAB OLIC PANEL sodium 138 mmol/ L 136-14 5 normal Not Available [address] [place], [address] 04/10/2023 12:25:49 04/10/20 23 04/10/2023 COMPR EHENS BRISSA METAB OLIC PANEL potassium 4.3 mmol/ L 3.5-5. 1 normal Not Available [address] [place], [address] 04/10/2023 12:25:49 04/10/20 23 04/10/2023 COMPR EHENS BRISSA METAB OLIC PANEL chloride 102 mmol/ L 98-107 normal Not Available [address] [place], [address] 04/10/2023 12:25:49 04/10/20 23 04/10/2023 COMPR EHENS BRISSA METAB OLIC PANEL CO2 24.7 mmol/ L 21.0-3 2.0 normal Not Available [address] [place], [address] 04/10/2023 12:25:49 04/10/20 23 04/10/2023 COMPR EHENS BRISSA METAB OLIC PANEL anion gap 11.3 mmol/ L 3-11 high Not Available [address] [place], [address] 04/10/2023 12:25:49 04/10/20 23 04/10/2023 COMPR EHENS BRISSA METAB OLIC PANEL AST 77 U/L 15-37 high Not Available Regina king [address] [place], [address] 04/10/2023 12:25:49 04/10/20 23 04/10/2023 COMPR EHENS BRISSA METAB OLIC PANEL ALT 137 U/L 14-59 high Not Available Regina king [address] [place], [address] 04/10/2023 12:25:49 04/10/20 23 04/10/2023 C-ZONIA CTIVE PROTE IN C-reactive protein 9.51 mg/dL 0.0-0. 3 high Not Available [address] [place], [address] 04/10/2023 12:25:50 04/10/20 23 04/10/2023 C-ZONIA CTIVE PROTE IN C-reactive protein 9.51 mg/dL 0.0-0. 3 high Not Available [address] [place], [address] 04/12/2023 01:17:45 04/24/20 23 04/24/2023 ESR ESR 53 mm/HR 0-20 high Not Available [address] [place], [address] 04/24/2023 14:34:51 04/24/20 23 04/24/2023 COMPL ETE BLOOD COUNT W/DIF F WBC 4.01 10_3/ uL 4.4-10 .8 low Not Available [address] [place], [address] 04/24/2023 14:43:55 04/24/20 23 04/24/2023 COMPL ETE BLOOD COUNT W/DIF F RBC 3.76 10_6/ uL 3.93-5 .22 low Not Available [address] [place], [address] 04/24/2023 14:43:55 04/24/20 23 04/24/2023 COMPL ETE BLOOD COUNT W/DIF F HGB 9.6 g/dL 11.2-1 5.7 low Not Available [address] [place], [address] 04/24/2023 14:43:55 04/24/20 23 04/24/2023 COMPL ETE BLOOD COUNT W/DIF F HCT 31.3 % 36.0-4 6.0 low Not Available [address] [place], [address] 04/24/2023 14:43:55 04/24/20 23 04/24/2023 COMPL ETE BLOOD COUNT W/DIF F MCV 83 fL 80-95 normal Not Available [address] [place], [address] 04/24/2023 14:43:55 04/24/20 23 04/24/2023 COMPL ETE BLOOD COUNT W/DIF F MCH 25.5 pg 27.0-3 3.0 low Not Available [address] [place], [address] 04/24/2023 14:43:55 04/24/20 23 04/24/2023 COMPL ETE BLOOD COUNT W/DIF F MCHC 30.7 % 32.0-3 6.0 low Not Available [address] [place], [address] 04/24/2023 14:43:55 04/24/20 23 04/24/2023 COMPL ETE BLOOD COUNT W/DIF F RDW 16.9 % 11.7-1 4.6 high Not Available [address] [place], [address] 04/24/2023 14:43:55 04/24/20 23 04/24/2023 COMPL ETE BLOOD COUNT W/DIF F platelet count 423 10_3/ uL 130-40 0 high Not Available [address] [place], [address] 04/24/2023 14:43:55 04/24/20 23 04/24/2023 COMPL ETE BLOOD COUNT W/DIF F MPV 9.9 fL 8.0-11 .0 normal Not Available [address] [place], [address] 04/24/2023 14:43:55 04/24/20 23 04/24/2023 COMPL ETE BLOOD COUNT W/DIF F neutrophils % 66.4 Not Available [facility] [address] [place] [address] [place], [address] 04/24/2023 14:43:55 04/24/20 23 04/24/2023 COMPL ETE BLOOD COUNT W/DIF F lymphocytes % 24.9 Not Available [address] [place], [address] 04/24/2023 14:43:55 04/24/20 23 04/24/2023 COMPL ETE BLOOD COUNT W/DIF F monocytes % 6.5 Not Available [address] [place], [address] 04/24/2023 14:43:55 04/24/20 23 04/24/2023 COMPL ETE BLOOD COUNT W/DIF F eosinophils % 1.5 Not Available [address] [place], [address] 04/24/2023 14:43:55 04/24/20 23 04/24/2023 COMPL ETE BLOOD COUNT W/DIF F basophils % 0.7 Not Available [address] [place], [address] 04/24/2023 14:43:55 04/24/20 23 04/24/2023 COMPL ETE BLOOD COUNT W/DIF F immature grans % 0.0 Not Available [address] [place], [address] 04/24/2023 14:43:55 04/24/20 23 04/24/2023 COMPL ETE BLOOD COUNT W/DIF F nucleated RBC 0.0 % 0.0-0. 3 normal Not Available [address] [place], [address] 04/24/2023 14:43:55 04/24/20 23 04/24/2023 COMPL ETE BLOOD COUNT W/DIF F absolute neutrophil count 2.66 10_3/ uL 1.2-6. 7 normal Not Available [address] [place], [address] 04/24/2023 14:43:55 04/24/20 23 04/24/2023 COMPL ETE BLOOD COUNT W/DIF F absolute lymphocyte count 1.00 10_3/ uL 1.2-3. 4 low Not Available [address] [place], [address] 04/24/2023 14:43:55 04/24/20 23 04/24/2023 COMPL ETE BLOOD COUNT W/DIF F absolute monocyte count 0.26 10_3/ uL 0.1-0. 8 normal Not Available [address] [place], [address] 04/24/2023 14:43:55 04/24/20 23 04/24/2023 COMPL ETE BLOOD COUNT W/DIF F absolute eosinophil count 0.06 10_3/ uL 0.0-0. 7 normal Not Available [address] [place], [address] 04/24/2023 14:43:55 04/24/20 23 04/24/2023 COMPL ETE BLOOD COUNT W/DIF F absolute basophil count 0.03 10_3/ uL 0.0-0. 2 normal Not Available [address] [place], [address] 04/24/2023 14:43:55 04/24/20 23 04/24/2023 COMPR EHENS BRISSA METAB OLIC PANEL calcium 9.5 mg/dL 8.5-10 .1 normal Not Available [address] [place], [address] 04/24/2023 14:57:58 04/24/20 23 04/24/2023 COMPR EHENS BRISSA METAB OLIC PANEL glucose 97 mg/dL 74-106 normal Not Available Regina [address] [place], [address] 04/24/2023 14:57:58 04/24/20 23 04/24/2023 COMPR EHENS BRISSA METAB OLIC PANEL BUN 11 mg/dL 7-18 normal Not Available Regina king [address] [place], [address] 04/24/2023 14:57:58 04/24/20 23 04/24/2023 COMPR EHENS BRISSA METAB OLIC PANEL creatinine 0.4 mg/dL 0.55-1 .02 low Not Available [address] [place], [address] 04/24/2023 14:57:58 04/24/20 23 04/24/2023 COMPR EHENS [...] young er-ag ed adult s. Not Available [address] [place], [address] 04/24/2023 14:57:58 04/24/20 23 04/24/2023 COMPR EHENS BRISSA METAB OLIC PANEL total protein 8.7 g/dL 6.4-8. 2 high Not Available [address] [place], [address] 04/24/2023 14:57:58 04/24/20 23 04/24/2023 COMPR EHENS BRISSA METAB OLIC PANEL albumin 3.2 g/dL 3.4-5. 0 low Not Available [address] [place], [address] 04/24/2023 14:57:58 04/24/20 23 04/24/2023 COMPR EHENS BRISSA METAB OLIC PANEL bilirubin, total 0.1 mg/dL 0.2-1. 0 low Not Available [address] [place], [address] 04/24/2023 14:57:58 04/24/20 23 04/24/2023 COMPR EHENS BRISSA METAB OLIC PANEL alk phos 256 U/L 46-116 high Not Available [address] [place], [address] 04/24/2023 14:57:58 04/24/20 23 04/24/2023 COMPR EHENS BRISSA METAB OLIC PANEL sodium 140 mmol/ L 136-14 5 normal Not Available [address] [place], [address] 04/24/2023 14:57:58 04/24/20 23 04/24/2023 COMPR EHENS BRISSA METAB OLIC PANEL potassium 3.8 mmol/ L 3.5-5. 1 normal Not Available [address] [place], [address] 04/24/2023 14:57:58 04/24/20 23 04/24/2023 COMPR EHENS BRISSA METAB OLIC PANEL chloride 102 mmol/ L 98-107 normal Not Available [address] [place], [address] 04/24/2023 14:57:58 04/24/20 23 04/24/2023 COMPR EHENS BRISSA METAB OLIC PANEL CO2 27.8 mmol/ L 21.0-3 2.0 normal Not Available [address] [place], [address] 04/24/2023 14:57:58 04/24/20 23 04/24/2023 COMPR EHENS BRISSA METAB OLIC PANEL anion gap 10.2 mmol/ L 3-11 normal Not Available [address] [place], [address] 04/24/2023 14:57:58 04/24/20 23 04/24/2023 COMPR EHENS BRISSA METAB OLIC PANEL AST 30 U/L 15-37 normal Not Available Regina king [address] [place], [address] 04/24/2023 14:57:58 04/24/20 23 04/24/2023 COMPR EHENS BRISSA METAB OLIC PANEL ALT 34 U/L 14-59 normal Not Available Regina king [address] [place], [address] 04/24/2023 14:57:58 04/24/20 23 04/24/2023 C-ZONIA CTIVE PROTE IN C-reactive protein 5.46 mg/dL 0.0-0. 3 high Not Available [address] [place], [address] 04/24/2023 14:57:59 04/24/20 23 04/24/2023 ACUTE HEPAT ITIS PROFI LE hepatitis B surface Ag Negati ve negati ve Not Available [address] [place], [address] 04/25/2023 11:53:33 04/24/20 23 04/24/2023 ACUTE HEPAT ITIS PROFI LE hepatitis C Ab W rflx HCV PCR Negati ve negati ve Not Available [address] [place], [address] 04/25/2023 11:53:33 04/24/20 23 04/24/2023 ACUTE HEPAT ITIS PROFI LE hepatitis A antibody IgM Negati ve negati ve The resul ts of this assay can be false ly lower ed due to the consu mptio n of Bioti n. Not Available [address] [place], [address] 04/25/2023 11:53:33 04/24/20 23 04/24/2023 ACUTE HEPAT ITIS PROFI LE hepatitis B core antibody Negati ve negati ve Test perfo rmed or refer red by [facility] [address] [facility] [place] [address] Not Available [address] [place], [address] 04/25/2023 11:53:33 05/01/19 24 05/01/2023 fecal occul t blood , stool Occult Blood negati ve Not Available [address], [address], 05/01/2023 16:26:46 05/14/19 24 05/14/2023 COMPL ETE BLOOD COUNT W/DIF F WBC 3.61 10_3/ uL 4.4-10 .8 low Not Available [address] [place], [address] 05/14/2023 12:56:33 05/14/19 24 05/14/2023 COMPL ETE BLOOD COUNT W/DIF F RBC 4.26 10_6/ uL 3.93-5 .22 normal Not Available [address] [place], [address] 05/14/2023 12:56:33 05/14/19 24 05/14/2023 COMPL ETE BLOOD COUNT W/DIF F HGB 10.4 g/dL 11.2-1 5.7 low Not Available [address] [place], [address] 05/14/2023 12:56:33 05/14/19 24 05/14/2023 COMPL ETE BLOOD COUNT W/DIF F HCT 34.3 % 36.0-4 6.0 low Not Available [address] [place], [address] 05/14/2023 12:56:33 05/14/19 24 05/14/2023 COMPL ETE BLOOD COUNT W/DIF F MCV 81 fL 80-95 normal Not Available [address] [place], [address] 05/14/2023 12:56:33 05/14/19 24 05/14/2023 COMPL ETE BLOOD COUNT W/DIF F MCH 24.4 pg 27.0-3 3.0 low Not Available [address] [place], [address] 05/14/2023 12:56:33 05/14/19 24 05/14/2023 COMPL ETE BLOOD COUNT W/DIF F MCHC 30.3 % 32.0-3 6.0 low Not Available [address] [place], [address] 05/14/2023 12:56:33 05/14/19 24 05/14/2023 COMPL ETE BLOOD COUNT W/DIF F RDW 17.8 % 11.7-1 4.6 high Not Available [address] [place], [address] 05/14/2023 12:56:33 05/14/19 24 05/14/2023 COMPL ETE BLOOD COUNT W/DIF F platelet count 351 10_3/ uL 130-40 0 normal Not Available [address] [place], [address] 05/14/2023 12:56:33 05/14/19 24 05/14/2023 COMPL ETE BLOOD COUNT W/DIF F MPV 9.6 fL 8.0-11 .0 normal Not Available [address] [place], [address] 05/14/2023 12:56:33 05/14/19 24 05/14/2023 COMPL ETE BLOOD COUNT W/DIF F neutrophils % 55.3 Not Available [address] [place], [address] 05/14/2023 12:56:33 05/14/19 24 05/14/2023 COMPL ETE BLOOD COUNT W/DIF F lymphocytes % 36.6 Not Available [address] [place], [address] 05/14/2023 12:56:33 05/14/19 24 05/14/2023 COMPL ETE BLOOD COUNT W/DIF F monocytes % 5.3 Not Available [address] [place], [address] 05/14/2023 12:56:33 05/14/19 24 05/14/2023 COMPL ETE BLOOD COUNT W/DIF F eosinophils % 1.9 Not Available [address] [place], [address] 05/14/2023 12:56:33 05/14/19 24 05/14/2023 COMPL ETE BLOOD COUNT W/DIF F basophils % 0.6 Not Available [address] [place], [address] 05/14/2023 12:56:33 05/14/19 24 05/14/2023 COMPL ETE BLOOD COUNT W/DIF F immature grans % 0.3 Not Available [address] [place], [address] 05/14/2023 12:56:33 05/14/19 24 05/14/2023 COMPL ETE BLOOD COUNT W/DIF F nucleated RBC 0.0 % 0.0-0. 3 normal Not Available [address] [place], [address] 05/14/2023 12:56:33 05/14/19 24 05/14/2023 COMPL ETE BLOOD COUNT W/DIF F absolute neutrophil count 2.00 10_3/ uL 1.2-6. 7 normal Not Available [address] [place], [address] 05/14/2023 12:56:33 05/14/19 24 05/14/2023 COMPL ETE BLOOD COUNT W/DIF F absolute lymphocyte count 1.32 10_3/ uL 1.2-3. 4 normal Not Available [address] [place], [address] 05/14/2023 12:56:33 05/14/19 24 05/14/2023 COMPL ETE BLOOD COUNT W/DIF F absolute monocyte count 0.19 10_3/ uL 0.1-0. 8 normal Not Available [address] [place], [address] 05/14/2023 12:56:33 05/14/19 24 05/14/2023 COMPL ETE BLOOD COUNT W/DIF F absolute eosinophil count 0.07 10_3/ uL 0.0-0. 7 normal Not Available [address] [place], [address] 05/14/2023 12:56:33 05/14/19 24 05/14/2023 COMPL ETE BLOOD COUNT W/DIF F absolute basophil count 0.02 10_3/ uL 0.0-0. 2 normal Not Available [address] [place], [address] 05/14/2023 12:56:33 05/14/19 24 05/14/2023 ESR ESR 67 mm/HR 0-20 high Not Available [address] [place], [address] 05/14/2023 12:56:35 05/14/19 24 05/14/2023 COMPR EHENS BRISSA METAB OLIC PANEL calcium 9.4 mg/dL 8.5-10 .1 normal Not Available [address] [place], [address] 05/14/2023 13:06:39 05/14/19 24 05/14/2023 COMPR EHENS BRISSA METAB OLIC PANEL glucose 90 mg/dL 74-106 normal Not Available Regina king [address] [place], [address] 05/14/2023 13:06:39 05/14/19 24 05/14/2023 COMPR EHENS BRISSA METAB OLIC PANEL BUN 13 mg/dL 7-18 normal Not Available Regina king [address] [place], [address] 05/14/2023 13:06:39 05/14/19 24 05/14/2023 COMPR EHENS BRISSA METAB OLIC PANEL creatinine 0.4 mg/dL 0.55-1 .02 low Not Available [address] [place], [address] 05/14/2023 13:06:39 05/14/19 24 05/14/2023 COMPR EHENS [...] young er-ag ed adult s. Not Available [address] [place], [address] 05/14/2023 13:06:39 05/14/19 24 05/14/2023 COMPR EHENS BRISSA METAB OLIC PANEL total protein 7.8 g/dL 6.4-8. 2 normal Not Available [address] [place], [address] 05/14/2023 13:06:39 05/14/19 24 05/14/2023 COMPR EHENS BRISSA METAB OLIC PANEL albumin 3.3 g/dL 3.4-5. 0 low Not Available [address] [place], [address] 05/14/2023 13:06:39 05/14/19 24 05/14/2023 COMPR EHENS BRISSA METAB OLIC PANEL bilirubin, total 0.2 mg/dL 0.2-1. 0 normal Not Available [address] [place], [address] 05/14/2023 13:06:39 05/14/19 24 05/14/2023 COMPR EHENS BRISSA METAB OLIC PANEL alk phos 283 U/L 46-116 high Not Available [address] [place], [address] 05/14/2023 13:06:39 05/14/19 24 05/14/2023 COMPR EHENS BRISSA METAB OLIC PANEL sodium 140 mmol/ L 136-14 5 normal Not Available [address] [place], [address] 05/14/2023 13:06:39 05/14/19 24 05/14/2023 COMPR EHENS BRISSA METAB OLIC PANEL potassium 4.1 mmol/ L 3.5-5. 1 normal Not Available [address] [place], [address] 05/14/2023 13:06:39 05/14/19 24 05/14/2023 COMPR EHENS BRISSA METAB OLIC PANEL chloride 102 mmol/ L 98-107 normal Not Available [address] [place], [address] 05/14/2023 13:06:39 05/14/19 24 05/14/2023 COMPR EHENS BRISSA METAB OLIC PANEL CO2 27.4 mmol/ L 21.0-3 2.0 normal Not Available [address] [place], [address] 05/14/2023 13:06:39 05/14/19 24 05/14/2023 COMPR EHENS BRISSA METAB OLIC PANEL anion gap 10.6 mmol/ L 3-11 normal Not Available [address] [place], [address] 05/14/2023 13:06:39 05/14/19 24 05/14/2023 COMPR EHENS BRISSA METAB OLIC PANEL AST 35 U/L 15-37 normal Not Available Regina king [address] [place], [address] 05/14/2023 13:06:39 05/14/19 24 05/14/2023 COMPR EHENS BRISSA METAB OLIC PANEL ALT 64 U/L 14-59 high Not Available Regina king [address] [place], [address] 05/14/2023 13:06:39 05/14/19 24 05/14/2023 CREAT INE KINAS E creatine kinase 21 U/L 26-192 low Not Available Paula nunes [address] [place], [address] 05/14/2023 13:06:43 05/14/19 24 05/14/2023 C-ZONIA CTIVE PROTE IN C-reactive protein 3.60 mg/dL 0.0-0. 3 high Not Available [address] [place], [address] 05/14/2023 13:06:43 06/17/19 24 06/17/2023 COMPL ETE BLOOD COUNT W/DIF F WBC 4.17 10_3/ uL 4.4-10 .8 low Not Available [address] [place], [address] 06/17/2023 13:58:18 06/17/19 24 06/17/2023 COMPL ETE BLOOD COUNT W/DIF F RBC 4.90 10_6/ uL 3.93-5 .22 normal Not Available [address] [place], [address] 06/17/2023 13:58:18 06/17/19 24 06/17/2023 COMPL ETE BLOOD COUNT W/DIF F HGB 12.1 g/dL 11.2-1 5.7 normal Not Available [address] [place], [address] 06/17/2023 13:58:18 06/17/19 24 06/17/2023 COMPL ETE BLOOD COUNT W/DIF F HCT 38.4 % 36.0-4 6.0 normal Not Available [address] [place], [address] 06/17/2023 13:58:18 06/17/19 24 06/17/2023 COMPL ETE BLOOD COUNT W/DIF F MCV 78 fL 80-95 low Not Available Regina [address] [place], [address] 06/17/2023 13:58:18 06/17/19 24 06/17/2023 COMPL ETE BLOOD COUNT W/DIF F MCH 24.7 pg 27.0-3 3.0 low Not Available [address] [place], [address] 06/17/2023 13:58:18 06/17/19 24 06/17/2023 COMPL ETE BLOOD COUNT W/DIF F MCHC 31.5 % 32.0-3 6.0 low Not Available [address] [place], [address] 06/17/2023 13:58:18 06/17/19 24 06/17/2023 COMPL ETE BLOOD COUNT W/DIF F RDW 20.3 % 11.7-1 4.6 high Not Available [address] [place], [address] 06/17/2023 13:58:18 06/17/19 24 06/17/2023 COMPL ETE BLOOD COUNT W/DIF F platelet count 325 10_3/ uL 130-40 0 normal Not Available [address] [place], [address] 06/17/2023 13:58:18 06/17/19 24 06/17/2023 COMPL ETE BLOOD COUNT W/DIF F MPV 10.1 fL 8.0-11 .0 normal Not Available [address] [place], [address] 06/17/2023 13:58:18 06/17/19 24 06/17/2023 COMPL ETE BLOOD COUNT W/DIF F neutrophils % 58.2 Not Available [address] [place], [address] 06/17/2023 13:58:18 06/17/19 24 06/17/2023 COMPL ETE BLOOD COUNT W/DIF F lymphocytes % 32.1 Not Available [address] [place], [address] 06/17/2023 13:58:18 06/17/19 24 06/17/2023 COMPL ETE BLOOD COUNT W/DIF F monocytes % 7.4 Not Available [address] [place], [address] 06/17/2023 13:58:18 06/17/19 24 06/17/2023 COMPL ETE BLOOD COUNT W/DIF F eosinophils % 1.4 Not Available [address] [place], [address] 06/17/2023 13:58:18 06/17/19 24 06/17/2023 COMPL ETE BLOOD COUNT W/DIF F basophils % 0.7 Not Available [address] [place], [address] 06/17/2023 13:58:18 06/17/19 24 06/17/2023 COMPL ETE BLOOD COUNT W/DIF F immature grans % 0.2 Not Available [address] [place], [address] 06/17/2023 13:58:18 06/17/19 24 06/17/2023 COMPL ETE BLOOD COUNT W/DIF F nucleated RBC 0.0 % 0.0-0. 3 normal Not Available [address] [place], [address] 06/17/2023 13:58:18 06/17/19 24 06/17/2023 COMPL ETE BLOOD COUNT W/DIF F absolute neutrophil count 2.43 10_3/ uL 1.2-6. 7 normal Not Available [address] [place], [address] 06/17/2023 13:58:18 06/17/19 24 06/17/2023 COMPL ETE BLOOD COUNT W/DIF F absolute lymphocyte count 1.34 10_3/ uL 1.2-3. 4 normal Not Available [address] [place], [address] 06/17/2023 13:58:18 06/17/19 24 06/17/2023 COMPL ETE BLOOD COUNT W/DIF F absolute monocyte count 0.31 10_3/ uL 0.1-0. 8 normal Not Available [address] [place], [address] 06/17/2023 13:58:18 06/17/19 24 06/17/2023 COMPL ETE BLOOD COUNT W/DIF F absolute eosinophil count 0.06 10_3/ uL 0.0-0. 7 normal Not Available [address] [place], [address] 06/17/2023 13:58:18 06/17/19 24 06/17/2023 COMPL ETE BLOOD COUNT W/DIF F absolute basophil count 0.03 10_3/ uL 0.0-0. 2 normal Not Available [address] [place], [address] 06/17/2023 13:58:18 06/17/19 24 06/17/2023 COMPL ETE BLOOD COUNT W/DIF F diff comment RBC Morph Review ed Not Available [address] [place], [address] 06/17/2023 13:58:18 06/17/19 24 06/17/2023 COMPL ETE BLOOD COUNT W/DIF F RBC morphology See Below Not Available [address] [place], [address] 06/17/2023 13:58:18 06/17/19 24 06/17/2023 COMPL ETE BLOOD COUNT W/DIF F anisocytosis 1+ Not Available [address] [place], [address] 06/17/2023 13:58:18 06/17/19 24 06/17/2023 COMPL ETE BLOOD COUNT W/DIF F microcytosis 1+ Not Available [address] [place], [address] 06/17/2023 13:58:18 06/17/19 24 06/17/2023 COMPL ETE BLOOD COUNT W/DIF F poikilocytes 1+ STOMA TOCYT ES Not Available [address] [place], [address] 06/17/2023 13:58:18 07/01/19 24 07/01/2023 COMPR EHENS BRISSA METAB OLIC PANEL calcium 9.5 mg/dL 8.5-10 .1 normal Not Available [address] [place], [address] 07/01/2023 16:12:34 07/01/19 24 07/01/2023 COMPR EHENS BRISSA METAB OLIC PANEL glucose 102 mg/dL 74-106 normal Not Available Regina [address] [place], [address] 07/01/2023 16:12:34 07/01/19 24 07/01/2023 COMPR EHENS BRISSA METAB OLIC PANEL BUN 13 mg/dL 7-18 normal Not Available Regina [address] [place], [address] 07/01/2023 16:12:34 07/01/19 24 07/01/2023 COMPR EHENS BRISSA METAB OLIC PANEL creatinine 0.4 mg/dL 0.55-1 .02 low Not Available [address] [place], [address] 07/01/2023 16:12:34 07/01/19 24 07/01/2023 COMPR EHENS [...] young er-ag ed adult s. Not Available [address] [place], [address] 07/01/2023 16:12:34 07/01/19 24 07/01/2023 COMPR EHENS BRISSA METAB OLIC PANEL total protein 7.9 g/dL 6.4-8. 2 normal Not Available [address] [place], [address] 07/01/2023 16:12:34 07/01/19 24 07/01/2023 COMPR EHENS BRISSA METAB OLIC PANEL albumin 3.6 g/dL 3.4-5. 0 normal Not Available [address] [place], [address] 07/01/2023 16:12:34 07/01/19 24 07/01/2023 COMPR EHENS BRISSA METAB OLIC PANEL bilirubin, total 0.1 mg/dL 0.2-1. 0 low Not Available [address] [place], [address] 07/01/2023 16:12:34 07/01/19 24 07/01/2023 COMPR EHENS BRISSA METAB OLIC PANEL alk phos 233 U/L 46-116 high Not Available [address] [place], [address] 07/01/2023 16:12:34 07/01/19 24 07/01/2023 COMPR EHENS BRISSA METAB OLIC PANEL sodium 142 mmol/ L 136-14 5 normal Not Available [address] [place], [address] 07/01/2023 16:12:34 07/01/19 24 07/01/2023 COMPR EHENS BRISSA METAB OLIC PANEL potassium 4.0 mmol/ L 3.5-5. 1 normal Not Available [address] [place], [address] 07/01/2023 16:12:34 07/01/19 24 07/01/2023 COMPR EHENS BRISSA METAB OLIC PANEL chloride 104 mmol/ L 98-107 normal Not Available [address] [place], [address] 07/01/2023 16:12:34 07/01/19 24 07/01/2023 COMPR EHENS BRISSA METAB OLIC PANEL CO2 26.4 mmol/ L 21.0-3 2.0 normal Not Available [address] [place], [address] 07/01/2023 16:12:34 07/01/19 24 07/01/2023 COMPR EHENS BRISSA METAB OLIC PANEL anion gap 11.6 mmol/ L 3-11 high Not Available [address] [place], [address] 07/01/2023 16:12:34 07/01/19 24 07/01/2023 COMPR EHENS BRISSA METAB OLIC PANEL AST 27 U/L 15-37 normal Not Available Regina [address] [place], [address] 07/01/2023 16:12:34 07/01/19 24 07/01/2023 COMPR EHENS BRISSA METAB OLIC PANEL ALT 70 U/L 14-59 high Not Available Regina [address] [place], [address] 07/01/2023 16:12:34 07/01/19 24 07/01/2023 IRON/ IBCT iron 42 ug/dL 50-170 low Not Available Regina [address] [place], [address] 07/01/2023 16:36:37 07/01/19 24 07/01/2023 IRON/ IBCT total iron binding capacity 403 ug/dL 250-45 0 normal Not Available [address] [place], [address] 07/01/2023 16:36:37 07/01/19 24 07/01/2023 IRON/ IBCT transferrin sat 10 % 15-50 low Not Available Paula nunes [address] [place], [address] 07/01/2023 16:36:37 07/01/19 24 07/02/2023 TISSU E [...] perfo rmed or refer red by [facility] [address] [place] [address] Not Available [address] [place], [address] 07/02/2023 11:39:19 07/01/19 24 07/02/2023 IGG IgG 1631 mg/dL 610-16 16 abnormal Test perfo rmed or refer red by [facility] [address] [place] [address] Not Available [address] [place], [address] 07/02/2023 15:55:58 07/01/19 24 07/02/2023 IGA IgA 284 mg/dL 85-499 Test perfo rmed or refer red by [facility] [address] [place] [address] Not Available [address] [place], [address] 07/02/2023 15:55:58 07/29/19 24 07/29/2023 VITAM IN D 25 TOTAL vitamin D 25 total 39.4 NG/mL 30-100 normal Refer ence Guide lines : Defic ient: <10 ng/ml Insuf ficie nt: 10-30 ng/ml Suffi cient : 30-10 0 ng/ml Toxic : >100 ng/ml Not Available [address] [place], [address] 07/29/2023 13:31:45 10/28/19 24 10/28/2023 COMPL ETE BLOOD COUNT W/DIF F WBC 7.24 10_3/ uL 4.4-10 .8 normal Not Available [address] [place], [address] 10/28/2023 13:08:06 10/28/19 24 10/28/2023 COMPL ETE BLOOD COUNT W/DIF F RBC 4.41 10_6/ uL 3.93-5 .22 normal Not Available [address] [place], [address] 10/28/2023 13:08:06 10/28/19 24 10/28/2023 COMPL ETE BLOOD COUNT W/DIF F HGB 12.5 g/dL 11.2-1 5.7 normal Not Available [address] [place], [address] 10/28/2023 13:08:06 10/28/19 24 10/28/2023 COMPL ETE BLOOD COUNT W/DIF F HCT 38.8 % 36.0-4 6.0 normal Not Available [address] [place], [address] 10/28/2023 13:08:06 10/28/19 24 10/28/2023 COMPL ETE BLOOD COUNT W/DIF F MCV 88 fL 80-95 normal Not Available [address] [place], [address] 10/28/2023 13:08:06 10/28/19 24 10/28/2023 COMPL ETE BLOOD COUNT W/DIF F MCH 28.3 pg 27.0-3 3.0 normal Not Available [address] [place], [address] 10/28/2023 13:08:06 10/28/19 24 10/28/2023 COMPL ETE BLOOD COUNT W/DIF F MCHC 32.2 % 32.0-3 6.0 normal Not Available [address] [place], [address] 10/28/2023 13:08:06 10/28/19 24 10/28/2023 COMPL ETE BLOOD COUNT W/DIF F RDW 14.3 % 11.7-1 4.6 normal Not Available [address] [place], [address] 10/28/2023 13:08:06 10/28/19 24 10/28/2023 COMPL ETE BLOOD COUNT W/DIF F platelet count 482 10_3/ uL 130-40 0 high Not Available [address] [place], [address] 10/28/2023 13:08:06 10/28/19 24 10/28/2023 COMPL ETE BLOOD COUNT W/DIF F MPV 9.8 fL 8.0-11 .0 normal Not Available [address] [place], [address] 10/28/2023 13:08:06 10/28/19 24 10/28/2023 COMPL ETE BLOOD COUNT W/DIF F neutrophils % 71.3 % Not Available [address] [place], [address] 10/28/2023 13:08:06 10/28/19 24 10/28/2023 COMPL ETE BLOOD COUNT W/DIF F lymphocytes % 21.0 % Not Available [address] [place], [address] 10/28/2023 13:08:06 10/28/19 24 10/28/2023 COMPL ETE BLOOD COUNT W/DIF F monocytes % 5.4 % Not Available [address] [place], [address] 10/28/2023 13:08:06 10/28/19 24 10/28/2023 COMPL ETE BLOOD COUNT W/DIF F eosinophils % 1.5 % Not Available [address] [place], [address] 10/28/2023 13:08:06 10/28/19 24 10/28/2023 COMPL ETE BLOOD COUNT W/DIF F basophils % 0.4 % Not Available [address] [place], [address] 10/28/2023 13:08:06 10/28/19 24 10/28/2023 COMPL ETE BLOOD COUNT W/DIF F immature grans % 0.4 % Not Available [address] [place], [address] 10/28/2023 13:08:06 10/28/19 24 10/28/2023 COMPL ETE BLOOD COUNT W/DIF F nucleated RBC 0.0 % 0.0-0. 3 normal Not Available [address] [place], [address] 10/28/2023 13:08:06 10/28/19 24 10/28/2023 COMPL ETE BLOOD COUNT W/DIF F absolute neutrophil count 5.16 10_3/ uL 1.2-6. 7 normal Not Available [address] [place], [address] 10/28/2023 13:08:06 10/28/19 24 10/28/2023 COMPL ETE BLOOD COUNT W/DIF F absolute lymphocyte count 1.52 10_3/ uL 1.2-3. 4 normal Not Available [address] [place], [address] 10/28/2023 13:08:06 10/28/19 24 10/28/2023 COMPL ETE BLOOD COUNT W/DIF F absolute monocyte count 0.39 10_3/ uL 0.1-0. 8 normal Not Available [address] [place], [address] 10/28/2023 13:08:06 10/28/19 24 10/28/2023 COMPL ETE BLOOD COUNT W/DIF F absolute eosinophil count 0.11 10_3/ uL 0.0-0. 7 normal Not Available [address] [place], [address] 10/28/2023 13:08:06 10/28/19 24 10/28/2023 COMPL ETE BLOOD COUNT W/DIF F absolute basophil count 0.03 10_3/ uL 0.0-0. 2 normal Not Available [address] [place], [address] 10/28/2023 13:08:06 10/28/19 24 10/28/2023 COMPR EHENS BRISSA METAB OLIC PANEL calcium 9.1 mg/dL 8.5-10 .1 normal Not Available [address] [place], [address] 10/28/2023 13:27:10 10/28/19 24 10/28/2023 COMPR EHENS BRISSA METAB OLIC PANEL glucose 98 mg/dL 74-106 normal Not Available Regina king [address] [place], [address] 10/28/2023 13:27:10 10/28/19 24 10/28/2023 COMPR EHENS BRISSA METAB OLIC PANEL BUN 8 mg/dL 7-18 normal Not Available Regina king [address] [place], [address] 10/28/2023 13:27:10 10/28/19 24 10/28/2023 COMPR EHENS BRISSA METAB OLIC PANEL creatinine 0.4 mg/dL 0.55-1 .02 low Not Available [address] [place], [address] 10/28/2023 13:27:10 10/28/19 24 10/28/2023 COMPR EHENS [...] young er-ag ed adult s. Not Available [address] [place], [address] 10/28/2023 13:27:10 10/28/19 24 10/28/2023 COMPR EHENS BRISSA METAB OLIC PANEL total protein 7.9 g/dL 6.4-8. 2 normal Not Available [address] [place], [address] 10/28/2023 13:27:10 10/28/19 24 10/28/2023 COMPR EHENS BRISSA METAB OLIC PANEL albumin 3.0 g/dL 3.4-5. 0 low Not Available [address] [place], [address] 10/28/2023 13:27:10 10/28/19 24 10/28/2023 COMPR EHENS BRISSA METAB OLIC PANEL bilirubin, total 0.27 mg/dL 0.2-1. 0 normal Not Available [address] [place], [address] 10/28/2023 13:27:10 10/28/19 24 10/28/2023 COMPR EHENS BRISSA METAB OLIC PANEL alk phos 263 U/L 46-116 high Not Available [address] [place], [address] 10/28/2023 13:27:10 10/28/19 24 10/28/2023 COMPR EHENS BRISSA METAB OLIC PANEL sodium 141 mmol/ L 136-14 5 normal Not Available [address] [place], [address] 10/28/2023 13:27:10 10/28/19 24 10/28/2023 COMPR EHENS BRISSA METAB OLIC PANEL potassium 4.3 mmol/ L 3.5-5. 1 normal Not Available [address] [place], [address] 10/28/2023 13:27:10 10/28/19 24 10/28/2023 COMPR EHENS BRISSA METAB OLIC PANEL chloride 103 mmol/ L 98-107 normal Not Available [address] [place], [address] 10/28/2023 13:27:10 10/28/19 24 10/28/2023 COMPR EHENS BRISSA METAB OLIC PANEL CO2 29.2 mmol/ L 21.0-3 2.0 normal Not Available [address] [place], [address] 10/28/2023 13:27:10 10/28/19 24 10/28/2023 COMPR EHENS BRISSA METAB OLIC PANEL anion gap 8.8 mmol/ L 3-11 normal Not Available [address] [place], [address] 10/28/2023 13:27:10 10/28/19 24 10/28/2023 COMPR EHENS BRISSA METAB OLIC PANEL AST 22 U/L 15-37 normal Not Available Regina king [address] [place], [address] 10/28/2023 13:27:10 10/28/19 24 10/28/2023 COMPR EHENS BRISSA METAB OLIC PANEL ALT 54 U/L 14-59 normal Not Available Regina king [address] [place], [address] 10/28/2023 13:27:10 10/28/19 24 10/28/2023 C-ZONIA CTIVE PROTE IN C-reactive protein 13.00 mg/dL <or=0. 5 high Not Available [facility] (Registration ) [address] [place] [address] [place], [address], 10/28/2023 13:27:11 11/09/19 24 11/09/2023 COMPL ETE BLOOD COUNT W/DIF F WBC 6.51 10_3/ uL 4.4-10 .8 normal Not Available [address] [place], [address] 11/09/2023 17:58:02 11/09/19 24 11/09/2023 COMPL ETE BLOOD COUNT W/DIF F RBC 4.22 10_6/ uL 3.93-5 .22 normal Not Available [address] [place], [address] 11/09/2023 17:58:02 11/09/19 24 11/09/2023 COMPL ETE BLOOD COUNT W/DIF F HGB 11.8 g/dL 11.2-1 5.7 normal Not Available [address] [place], [address] 11/09/2023 17:58:02 11/09/19 24 11/09/2023 COMPL ETE BLOOD COUNT W/DIF F HCT 36.7 % 36.0-4 6.0 normal Not Available [address] [place], [address] 11/09/2023 17:58:02 11/09/19 24 11/09/2023 COMPL ETE BLOOD COUNT W/DIF F MCV 87 fL 80-95 normal Not Available Regina king [address] [place], [address] 11/09/2023 17:58:02 11/09/19 24 11/09/2023 COMPL ETE BLOOD COUNT W/DIF F MCH 28.0 pg 27.0-3 3.0 normal Not Available [address] [place], [address] 11/09/2023 17:58:02 11/09/19 24 11/09/2023 COMPL ETE BLOOD COUNT W/DIF F MCHC 32.2 % 32.0-3 6.0 normal Not Available [address] [place], [address] 11/09/2023 17:58:02 11/09/19 24 11/09/2023 COMPL ETE BLOOD COUNT W/DIF F RDW 14.5 % 11.7-1 4.6 normal Not Available [address] [place], [address] 11/09/2023 17:58:02 11/09/19 24 11/09/2023 COMPL ETE BLOOD COUNT W/DIF F platelet count 430 10_3/ uL 130-40 0 high Not Available [address] [place], [address] 11/09/2023 17:58:02 11/09/19 24 11/09/2023 COMPL ETE BLOOD COUNT W/DIF F MPV 9.5 fL 8.0-11 .0 normal Not Available [address] [place], [address] 11/09/2023 17:58:02 11/09/19 24 11/09/2023 COMPL ETE BLOOD COUNT W/DIF F neutrophils % 60.3 % Not Available [address] [place], [address] 11/09/2023 17:58:02 11/09/19 24 11/09/2023 COMPL ETE BLOOD COUNT W/DIF F lymphocytes % 31.0 % Not Available [address] [place], [address] 11/09/2023 17:58:02 11/09/19 24 11/09/2023 COMPL ETE BLOOD COUNT W/DIF F monocytes % 5.7 % Not Available [address] [place], [address] 11/09/2023 17:58:02 11/09/19 24 11/09/2023 COMPL ETE BLOOD COUNT W/DIF F eosinophils % 2.2 % Not Available [address] [place], [address] 11/09/2023 17:58:02 11/09/19 24 11/09/2023 COMPL ETE BLOOD COUNT W/DIF F basophils % 0.6 % Not Available [address] [place], [address] 11/09/2023 17:58:02 11/09/19 24 11/09/2023 COMPL ETE BLOOD COUNT W/DIF F immature grans % 0.2 % Not Available [address] [place], [address] 11/09/2023 17:58:02 11/09/19 24 11/09/2023 COMPL ETE BLOOD COUNT W/DIF F nucleated RBC 0.0 % 0.0-0. 3 normal Not Available [address] [place], [address] 11/09/2023 17:58:02 11/09/19 24 11/09/2023 COMPL ETE BLOOD COUNT W/DIF F absolute neutrophil count 3.93 10_3/ uL 1.2-6. 7 normal Not Available [address] [place], [address] 11/09/2023 17:58:02 11/09/19 24 11/09/2023 COMPL ETE BLOOD COUNT W/DIF F absolute lymphocyte count 2.02 10_3/ uL 1.2-3. 4 normal Not Available [address] [place], [address] 11/09/2023 17:58:02 11/09/19 24 11/09/2023 COMPL ETE BLOOD COUNT W/DIF F absolute monocyte count 0.37 10_3/ uL 0.1-0. 8 normal Not Available [address] [place], [address] 11/09/2023 17:58:02 11/09/19 24 11/09/2023 COMPL ETE BLOOD COUNT W/DIF F absolute eosinophil count 0.14 10_3/ uL 0.0-0. 7 normal Not Available [address] [place], [address] 11/09/2023 17:58:02 11/09/19 24 11/09/2023 COMPL ETE BLOOD COUNT W/DIF F absolute basophil count 0.04 10_3/ uL 0.0-0. 2 normal Not Available [address] [place], [address] 11/09/2023 17:58:02 11/09/19 24 11/09/2023 COMPR EHENS BRISSA METAB OLIC PANEL calcium 9.1 mg/dL 8.5-10 .1 normal Not Available [address] [place], [address] 11/09/2023 18:20:06 11/09/19 24 11/09/2023 COMPR EHENS BRISSA METAB OLIC PANEL glucose 119 mg/dL 74-106 high Not Available Regina [address] [place], [address] 11/09/2023 18:20:06 11/09/19 24 11/09/2023 COMPR EHENS BRISSA METAB OLIC PANEL BUN 30 mg/dL 7-18 high Not Available Regina [address] [place], [address] 11/09/2023 18:20:06 11/09/19 24 11/09/2023 COMPR EHENS BRISSA METAB OLIC PANEL creatinine 1.2 mg/dL 0.55-1 .02 high Not Available [address] [place], [address] 11/09/2023 18:20:06 11/09/19 24 11/09/2023 COMPR EHENS [...] young er-ag ed adult s. Not Available [address] [place], [address] 11/09/2023 18:20:06 11/09/19 24 11/09/2023 COMPR EHENS BRISSA METAB OLIC PANEL total protein 7.4 g/dL 6.4-8. 2 normal Not Available [address] [place], [address] 11/09/2023 18:20:06 11/09/19 24 11/09/2023 COMPR EHENS BRISSA METAB OLIC PANEL albumin 3.3 g/dL 3.4-5. 0 low Not Available [address] [place], [address] 11/09/2023 18:20:06 11/09/19 24 11/09/2023 COMPR EHENS BRISSA METAB OLIC PANEL bilirubin, total 0.36 mg/dL 0.2-1. 0 normal Not Available [address] [place], [address] 11/09/2023 18:20:06 11/09/19 24 11/09/2023 COMPR EHENS BRISSA METAB OLIC PANEL alk phos 129 U/L 46-116 high Not Available [address] [place], [address] 11/09/2023 18:20:06 11/09/19 24 11/09/2023 COMPR EHENS BRISSA METAB OLIC PANEL sodium 128 mmol/ L 136-14 5 low Not Available [address] [place], [address] 11/09/2023 18:20:06 11/09/19 24 11/09/2023 COMPR EHENS BRISSA METAB OLIC PANEL potassium 4.3 mmol/ L 3.5-5. 1 normal Not Available [address] [place], [address] 11/09/2023 18:20:06 11/09/19 24 11/09/2023 COMPR EHENS BRISSA METAB OLIC PANEL chloride 92 mmol/ L 98-107 low Not Available [address] [place], [address] 11/09/2023 18:20:06 11/09/19 24 11/09/2023 COMPR EHENS BRISSA METAB OLIC PANEL CO2 26.0 mmol/ L 21.0-3 2.0 normal Not Available [address] [place], [address] 11/09/2023 18:20:06 11/09/19 24 11/09/2023 COMPR EHENS BRISSA METAB OLIC PANEL anion gap 10.0 mmol/ L 3-11 normal Not Available [address] [place], [address] 11/09/2023 18:20:06 11/09/19 24 11/09/2023 COMPR EHENS BRISSA METAB OLIC PANEL AST 29 U/L 15-37 normal Not Available [address] [place], [address] 11/09/2023 18:20:06 11/09/19 24 11/09/2023 COMPR EHENS BRISSA METAB OLIC PANEL ALT 40 U/L 14-59 normal Not Available [address] [place], [address] 11/09/2023 18:20:06 11/09/19 24 11/09/2023 C-ZONIA CTIVE PROTE IN C-reactive protein 3.21 mg/dL <or=0. 5 high Not Available [address] [place], [address] 11/09/2023 18:20:06 11/09/19 24 11/09/2023 C-ZONIA CTIVE PROTE IN C-reactive protein 3.21 mg/dL <or=0. 5 high MISLA BEL Not Available [address] [place], [address] 11/09/2023 19:28:31 11/09/19 24 11/09/2023 COMPR EHENS BRISSA METAB OLIC PANEL calcium 9.4 mg/dL 8.5-10 .1 normal --- 11/08 --- COR RECTE D REPOR T Corre cted Resul ts barfield d to and read back from BRITTNEY Watson RN (JESS [facility]) 11/08 at 1922 by LAB.L AUT Not Available [address] [place], [address] 11/09/2023 19:48:30 11/09/19 24 11/09/2023 COMPR EHENS BRISSA METAB OLIC PANEL glucose 114 mg/dL 74-106 high Not Available Regina king [address] [place], [address] 11/09/2023 19:48:30 11/09/19 24 11/09/2023 COMPR EHENS BRISSA METAB OLIC PANEL BUN 11 mg/dL 7-18 normal Not Available Regina king [address] [place], [address] 11/09/2023 19:48:30 11/09/19 24 11/09/2023 COMPR EHENS BRISSA METAB OLIC PANEL creatinine 0.4 mg/dL 0.55-1 .02 low Not Available [address] [place], [address] 11/09/2023 19:48:30 11/09/19 24 11/09/2023 COMPR EHENS [...] young er-ag ed adult s. Not Available [address] [place], [address] 11/09/2023 19:48:30 11/09/19 11/09/2023 COMPR EHENS BRISSA METAB OLIC PANEL total protein 7.7 g/dL 6.4-8. 2 normal Not Available [address] [place], [address] 11/09/2023 19:48:30 11/09/19 24 11/09/2023 COMPR EHENS BRISSA METAB OLIC PANEL albumin 3.1 g/dL 3.4-5. 0 low Not Available [address] [place], [address] 11/09/2023 19:48:30 11/09/19 24 11/09/2023 COMPR EHENS BRISSA METAB OLIC PANEL bilirubin, total 0.12 mg/dL 0.2-1. 0 low Not Available [address] [place], [address] 11/09/2023 19:48:30 11/09/19 24 11/09/2023 COMPR EHENS BRISSA METAB OLIC PANEL alk phos 213 U/L 46-116 high Not Available [address] [place], [address] 11/09/2023 19:48:30 11/09/19 24 11/09/2023 COMPR EHENS BRISSA METAB OLIC PANEL sodium 140 mmol/ L 136-14 5 normal Not Available [address] [place], [address] 11/09/2023 19:48:30 11/09/19 24 11/09/2023 COMPR EHENS BRISSA METAB OLIC PANEL potassium 3.9 mmol/ L 3.5-5. 1 normal Not Available [address] [place], [address] 11/09/2023 19:48:30 11/09/19 24 11/09/2023 COMPR EHENS BRISSA METAB OLIC PANEL chloride 102 mmol/ L 98-107 normal Not Available [address] [place], [address] 11/09/2023 19:48:30 11/09/19 24 11/09/2023 COMPR EHENS BRISSA METAB OLIC PANEL CO2 26.8 mmol/ L 21.0-3 2.0 normal Not Available [address] [place], [address] 11/09/2023 19:48:30 11/09/19 24 11/09/2023 COMPR EHENS BRISSA METAB OLIC PANEL anion gap 11.2 mmol/ L 3-11 high Not Available [address] [place], [address] 11/09/2023 19:48:30 11/09/19 24 11/09/2023 COMPR EHENS BRISSA METAB OLIC PANEL AST 20 U/L 15-37 normal Not Available Regina king [address] [place], [address] 11/09/2023 19:48:30 11/09/19 24 11/09/2023 COMPR EHENS BRISSA METAB OLIC PANEL ALT 56 U/L 14-59 normal Not Available Regina king [address] [place], [address] 11/09/2023 19:48:30 11/09/19 24 11/09/2023 C-ZONIA CTIVE PROTE IN C-reactive protein 3.39 mg/dL <or=0. 5 high Not Available [address] [place], [address] 11/09/2023 19:48:30 11/16/19 24 11/16/2023 COMPL ETE BLOOD COUNT W/DIF F WBC 3.75 10_3/ uL 4.4-10 .8 low Not Available [address] [place], [address] 11/16/2023 13:50:58 11/16/19 24 11/16/2023 COMPL ETE BLOOD COUNT W/DIF F RBC 4.38 10_6/ uL 3.93-5 .22 normal Not Available [address] [place], [address] 11/16/2023 13:50:58 11/16/19 24 11/16/2023 COMPL ETE BLOOD COUNT W/DIF F HGB 12.2 g/dL 11.2-1 5.7 normal Not Available [address] [place], [address] 11/16/2023 13:50:58 11/16/19 24 11/16/2023 COMPL ETE BLOOD COUNT W/DIF F HCT 38.3 % 36.0-4 6.0 normal Not Available [address] [place], [address] 11/16/2023 13:50:58 11/16/19 24 11/16/2023 COMPL ETE BLOOD COUNT W/DIF F MCV 87 fL 80-95 normal Not Available Regina king [address] [place], [address] 11/16/2023 13:50:58 11/16/19 24 11/16/2023 COMPL ETE BLOOD COUNT W/DIF F MCH 27.9 pg 27.0-3 3.0 normal Not Available [address] [place], [address] 11/16/2023 13:50:58 11/16/19 24 11/16/2023 COMPL ETE BLOOD COUNT W/DIF F MCHC 31.9 % 32.0-3 6.0 low Not Available [address] [place], [address] 11/16/2023 13:50:58 11/16/19 24 11/16/2023 COMPL ETE BLOOD COUNT W/DIF F RDW 14.4 % 11.7-1 4.6 normal Not Available [address] [place], [address] 11/16/2023 13:50:58 11/16/19 24 11/16/2023 COMPL ETE BLOOD COUNT W/DIF F platelet count 319 10_3/ uL 130-40 0 normal Not Available [address] [place], [address] 11/16/2023 13:50:58 11/16/19 24 11/16/2023 COMPL ETE BLOOD COUNT W/DIF F MPV 10.1 fL 8.0-11 .0 normal Not Available [address] [place], [address] 11/16/2023 13:50:58 11/16/19 24 11/16/2023 COMPL ETE BLOOD COUNT W/DIF F neutrophils % 53.6 % Not Available [address] [place], [address] 11/16/2023 13:50:58 11/16/19 24 11/16/2023 COMPL ETE BLOOD COUNT W/DIF F lymphocytes % 34.9 % Not Available [address] [place], [address] 11/16/2023 13:50:58 11/16/19 24 11/16/2023 COMPL ETE BLOOD COUNT W/DIF F monocytes % 6.4 % Not Available [address] [place], [address] 11/16/2023 13:50:58 11/16/19 24 11/16/2023 COMPL ETE BLOOD COUNT W/DIF F eosinophils % 4.0 % Not Available [address] [place], [address] 11/16/2023 13:50:58 11/16/19 24 11/16/2023 COMPL ETE BLOOD COUNT W/DIF F basophils % 0.8 % Not Available [address] [place], [address] 11/16/2023 13:50:58 11/16/19 24 11/16/2023 COMPL ETE BLOOD COUNT W/DIF F immature grans % 0.3 % Not Available [address] [place], [address] 11/16/2023 13:50:58 11/16/19 24 11/16/2023 COMPL ETE BLOOD COUNT W/DIF F nucleated RBC 0.0 % 0.0-0. 3 normal Not Available [address] [place], [address] 11/16/2023 13:50:58 11/16/19 24 11/16/2023 COMPL ETE BLOOD COUNT W/DIF F absolute neutrophil count 2.01 10_3/ uL 1.2-6. 7 normal Not Available [address] [place], [address] 11/16/2023 13:50:58 11/16/19 24 11/16/2023 COMPL ETE BLOOD COUNT W/DIF F absolute lymphocyte count 1.31 10_3/ uL 1.2-3. 4 normal Not Available [address] [place], [address] 11/16/2023 13:50:58 11/16/19 24 11/16/2023 COMPL ETE BLOOD COUNT W/DIF F absolute monocyte count 0.24 10_3/ uL 0.1-0. 8 normal Not Available [address] [place], [address] 11/16/2023 13:50:58 11/16/19 24 11/16/2023 COMPL ETE BLOOD COUNT W/DIF F absolute eosinophil count 0.15 10_3/ uL 0.0-0. 7 normal Not Available [address] [place], [address] 11/16/2023 13:50:58 11/16/19 24 11/16/2023 COMPL ETE BLOOD COUNT W/DIF F absolute basophil count 0.03 10_3/ uL 0.0-0. 2 normal Not Available [address] [place], [address] 11/16/2023 13:50:58 11/16/19 24 11/16/2023 COMPR EHENS BRISSA METAB OLIC PANEL calcium 8.9 mg/dL 8.5-10 .1 normal Not Available [address] [place], [address] 11/16/2023 14:42:19 11/16/19 24 11/16/2023 COMPR EHENS BRISSA METAB OLIC PANEL glucose 108 mg/dL 74-106 high Not Available Regina king [address] [place], [address] 11/16/2023 14:42:19 11/16/19 24 11/16/2023 COMPR EHENS BRISSA METAB OLIC PANEL BUN 13 mg/dL 7-18 normal Not Available Regina king [address], [address] 11/16/2023 14:42:19 11/16/19 24 11/16/2023 COMPR EHENS BRISSA METAB OLIC PANEL creatinine 0.4 mg/dL 0.55-1 .02 low Not Available [address] [place], [address] 11/16/2023 14:42:19 11/16/19 24 11/16/2023 COMPR EHENS [...] young er-ag ed adult s. Not Available [address] [place], [address] 11/16/2023 14:42:19 11/16/19 24 11/16/2023 COMPR EHENS BRISSA METAB OLIC PANEL total protein 7.5 g/dL 6.4-8. 2 normal Not Available [address] [place], [address] 11/16/2023 14:42:11/16/19 24 11/16/2023 COMPR EHENS BRISSA METAB OLIC PANEL albumin 3.1 g/dL 3.4-5. 0 low Not Available [address] [place], [address] 11/16/2023 14:42:19 11/16/19 24 11/16/2023 COMPR EHENS BRISSA METAB OLIC PANEL bilirubin, total 0.20 mg/dL 0.2-1. 0 normal Not Available [address] [place], [address] 11/16/2023 14:42:19 11/16/19 24 11/16/2023 COMPR EHENS BRISSA METAB OLIC PANEL alk phos 192 U/L 46-116 high Not Available [address] [place], [address] 11/16/2023 14:42:19 11/16/19 24 11/16/2023 COMPR EHENS BRISSA METAB OLIC PANEL sodium 144 mmol/ L 136-14 5 normal Not Available [address] [place], [address] 11/16/2023 14:42:19 11/16/19 24 11/16/2023 COMPR EHENS BRISSA METAB OLIC PANEL potassium 4.0 mmol/ L 3.5-5. 1 normal Not Available [address] [place], [address] 11/16/2023 14:42:19 11/16/19 24 11/16/2023 COMPR EHENS BRISSA METAB OLIC PANEL chloride 107 mmol/ L 98-107 normal Not Available [address] [place], [address] 11/16/2023 14:42:19 11/16/19 24 11/16/2023 COMPR EHENS BRISSA METAB OLIC PANEL CO2 28.9 mmol/ L 21.0-3 2.0 normal Not Available [address] [place], [address] 11/16/2023 14:42:19 11/16/19 24 11/16/2023 COMPR EHENS BRISSA METAB OLIC PANEL anion gap 8.1 mmol/ L 3-11 normal Not Available [address] [place], [address] 11/16/2023 14:42:19 11/16/19 24 11/16/2023 COMPR EHENS BRISSA METAB OLIC PANEL AST 38 U/L 15-37 high Not Available Regina king [address] [place], [address] 11/16/2023 14:42:19 11/16/19 24 11/16/2023 COMPR EHENS BRISSA METAB OLIC PANEL ALT 75 U/L 14-59 high Not Available Regina king [address], [address] 11/16/2023 14:42:19 11/16/19 24 11/16/2023 C-ZONIA CTIVE PROTE IN C-reactive protein 1.57 mg/dL <or=0. 5 high Not Available [address] [place], [address] 11/16/2023 14:42:19 11/23/19 24 11/23/2023 COMPL ETE BLOOD COUNT W/DIF F WBC 4.40 10_3/ uL 4.4-10 .8 normal Not Available [address] [place], [address] 11/23/2023 13:45:24 11/23/19 24 11/23/2023 COMPL ETE BLOOD COUNT W/DIF F RBC 4.32 10_6/ uL 3.93-5 .22 normal Not Available [address] [place], [address] 11/23/2023 13:45:24 11/23/19 24 11/23/2023 COMPL ETE BLOOD COUNT W/DIF F HGB 12.2 g/dL 11.2-1 5.7 normal Not Available [address] [place], [address] 11/23/2023 13:45:24 11/23/19 24 11/23/2023 COMPL ETE BLOOD COUNT W/DIF F HCT 37.2 % 36.0-4 6.0 normal Not Available [address] [place], [address] 11/23/2023 13:45:24 11/23/19 24 11/23/2023 COMPL ETE BLOOD COUNT W/DIF F MCV 86 fL 80-95 normal Not Available [address] [place], [address] 11/23/2023 13:45:24 11/23/19 24 11/23/2023 COMPL ETE BLOOD COUNT W/DIF F MCH 28.2 pg 27.0-3 3.0 normal Not Available [address] [place], [address] 11/23/2023 13:45:24 11/23/19 24 11/23/2023 COMPL ETE BLOOD COUNT W/DIF F MCHC 32.8 % 32.0-3 6.0 normal Not Available [address] [place], [address] 11/23/2023 13:45:24 11/23/19 24 11/23/2023 COMPL ETE BLOOD COUNT W/DIF F RDW 15.2 % 11.7-1 4.6 high Not Available [address] [place], [address] 11/23/2023 13:45:24 11/23/19 24 11/23/2023 COMPL ETE BLOOD COUNT W/DIF F platelet count 269 10_3/ uL 130-40 0 normal Not Available [address] [place], [address] 11/23/2023 13:45:24 11/23/19 24 11/23/2023 COMPL ETE BLOOD COUNT W/DIF F MPV 10.2 fL 8.0-11 .0 normal Not Available [address] [place], [address] 11/23/2023 13:45:24 11/23/19 24 11/23/2023 COMPL ETE BLOOD COUNT W/DIF F neutrophils % 52.3 % Not Available [address] [place], [address] 11/23/2023 13:45:24 11/23/19 24 11/23/2023 COMPL ETE BLOOD COUNT W/DIF F lymphocytes % 35.7 % Not Available [address] [place], [address] 11/23/2023 13:45:24 11/23/19 24 11/23/2023 COMPL ETE BLOOD COUNT W/DIF F monocytes % 8.6 % Not Available [address] [place], [address] 11/23/2023 13:45:24 11/23/19 24 11/23/2023 COMPL ETE BLOOD COUNT W/DIF F eosinophils % 2.5 % Not Available [address] [place], [address] 11/23/2023 13:45:24 11/23/19 24 11/23/2023 COMPL ETE BLOOD COUNT W/DIF F basophils % 0.7 % Not Available [address] [place], [address] 11/23/2023 13:45:24 11/23/19 24 11/23/2023 COMPL ETE BLOOD COUNT W/DIF F immature grans % 0.2 % Not Available Paula nunes [address] [place], [address] 11/23/2023 13:45:24 11/23/19 24 11/23/2023 COMPL ETE BLOOD COUNT W/DIF F nucleated RBC 0.0 % 0.0-0. 3 normal Not Available [address] [place], [address] 11/23/2023 13:45:24 11/23/19 24 11/23/2023 COMPL ETE BLOOD COUNT W/DIF F absolute neutrophil count 2.30 10_3/ uL 1.2-6. 7 normal Not Available [address] [place], [address] 11/23/2023 13:45:24 11/23/19 24 11/23/2023 COMPL ETE BLOOD COUNT W/DIF F absolute lymphocyte count 1.57 10_3/ uL 1.2-3. 4 normal Not Available [address] [place], [address] 11/23/2023 13:45:24 11/23/19 24 11/23/2023 COMPL ETE BLOOD COUNT W/DIF F absolute monocyte count 0.38 10_3/ uL 0.1-0. 8 normal Not Available [address] [place], [address] 11/23/2023 13:45:24 11/23/19 24 11/23/2023 COMPL ETE BLOOD COUNT W/DIF F absolute eosinophil count 0.11 10_3/ uL 0.0-0. 7 normal Not Available [address] [place], [address] 11/23/2023 13:45:24 11/23/19 24 11/23/2023 COMPL ETE BLOOD COUNT W/DIF F absolute basophil count 0.03 10_3/ uL 0.0-0. 2 normal Not Available [address] [place], [address] 11/23/2023 13:45:24 11/23/19 24 11/23/2023 COMPR EHENS BRISSA METAB OLIC PANEL calcium 9.3 mg/dL 8.5-10 .1 normal Not Available [address] [place], [address] 11/23/2023 13:52:24 11/23/19 24 11/23/2023 COMPR EHENS BRISSA METAB OLIC PANEL glucose 90 mg/dL 74-106 normal Not Available Regina king [address] [place], [address] 11/23/2023 13:52:24 11/23/19 24 11/23/2023 COMPR EHENS BRISSA METAB OLIC PANEL BUN 16 mg/dL 7-18 normal Not Available Regina king [address], [address] 11/23/2023 13:52:24 11/23/19 24 11/23/2023 COMPR EHENS BRISSA METAB OLIC PANEL creatinine 0.3 mg/dL 0.55-1 .02 low Not Available [address] [place], [address] 11/23/2023 13:52:24 11/23/19 24 11/23/2023 COMPR EHENS [...] young er-ag ed adult s. Not Available [address] [place], [address] 11/23/2023 13:52:24 11/23/19 24 11/23/2023 COMPR EHENS BRISSA METAB OLIC PANEL total protein 7.6 g/dL 6.4-8. 2 normal Not Available [address] [place], [address] 11/23/2023 13:52:24 11/23/19 24 11/23/2023 COMPR EHENS BRISSA METAB OLIC PANEL albumin 3.3 g/dL 3.4-5. 0 low Not Available [address] [place], [address] 11/23/2023 13:52:24 11/23/19 24 11/23/2023 COMPR EHENS BRISSA METAB OLIC PANEL bilirubin, total 0.22 mg/dL 0.2-1. 0 normal Not Available [address] [place], [address] 11/23/2023 13:52:24 11/23/19 24 11/23/2023 COMPR EHENS BRISSA METAB OLIC PANEL alk phos 201 U/L 46-116 high Not Available [address] [place], [address] 11/23/2023 13:52:24 11/23/19 24 11/23/2023 COMPR EHENS BRISSA METAB OLIC PANEL sodium 145 mmol/ L 136-14 5 normal Not Available [address] [place], [address] 11/23/2023 13:52:24 11/23/19 24 11/23/2023 COMPR EHENS BRISSA METAB OLIC PANEL potassium 3.8 mmol/ L 3.5-5. 1 normal Not Available [address] [place], [address] 11/23/2023 13:52:24 11/23/19 24 11/23/2023 COMPR EHENS BRISSA METAB OLIC PANEL chloride 107 mmol/ L 98-107 normal Not Available [address] [place], [address] 11/23/2023 13:52:24 11/23/19 24 11/23/2023 COMPR EHENS BRISSA METAB OLIC PANEL CO2 29.8 mmol/ L 21.0-3 2.0 normal Not Available [address] [place], [address] 11/23/2023 13:52:24 11/23/19 24 11/23/2023 COMPR EHENS BRISSA METAB OLIC PANEL anion gap 8.2 mmol/ L 3-11 normal Not Available [address] [place], [address] 11/23/2023 13:52:24 11/23/19 24 11/23/2023 COMPR EHENS BRISSA METAB OLIC PANEL AST 40 U/L 15-37 high Not Available Regina king [address] [place], [address] 11/23/2023 13:52:24 11/23/19 24 11/23/2023 COMPR EHENS BRISSA METAB OLIC PANEL ALT 83 U/L 14-59 high Not Available Regina king [address] [place], [address] 11/23/2023 13:52:24 11/23/19 24 11/23/2023 C-ZONIA CTIVE PROTE IN C-reactive protein 2.24 mg/dL <or=0. 5 high Not Available [address] [place], [address] 11/23/2023 13:52:24 12/04/19 24 12/04/2023 COMPL ETE BLOOD COUNT W/DIF F WBC 5.03 10_3/ uL 4.4-10 .8 normal Not Available [address] [place], [address] 12/04/2023 12:01:04 12/04/19 24 12/04/2023 COMPL ETE BLOOD COUNT W/DIF F RBC 4.08 10_6/ uL 3.93-5 .22 normal Not Available [address] [place], [address] 12/04/2023 12:01:04 12/04/19 24 12/04/2023 COMPL ETE BLOOD COUNT W/DIF F HGB 11.3 g/dL 11.2-1 5.7 normal Not Available [address] [place], [address] 12/04/2023 12:01:04 12/04/19 24 12/04/2023 COMPL ETE BLOOD COUNT W/DIF F HCT 35.8 % 36.0-4 6.0 low Not Available [address] [place], [address] 12/04/2023 12:01:04 12/04/19 24 12/04/2023 COMPL ETE BLOOD COUNT W/DIF F MCV 88 fL 80-95 normal Not Available Regina [address] [place], [address] 12/04/2023 12:01:04 12/04/19 24 12/04/2023 COMPL ETE BLOOD COUNT W/DIF F MCH 27.7 pg 27.0-3 3.0 normal Not Available [address] [place], [address] 12/04/2023 12:01:04 12/04/19 24 12/04/2023 COMPL ETE BLOOD COUNT W/DIF F MCHC 31.6 % 32.0-3 6.0 low Not Available [address] [place], [address] 12/04/2023 12:01:04 12/04/19 24 12/04/2023 COMPL ETE BLOOD COUNT W/DIF F RDW 16.2 % 11.7-1 4.6 high Not Available [address] [place], [address] 12/04/2023 12:01:04 12/04/19 24 12/04/2023 COMPL ETE BLOOD COUNT W/DIF F platelet count 265 10_3/ uL 130-40 0 normal Not Available [address] [place], [address] 12/04/2023 12:01:04 12/04/19 24 12/04/2023 COMPL ETE BLOOD COUNT W/DIF F MPV 10.6 fL 8.0-11 .0 normal Not Available [address] [place], [address] 12/04/2023 12:01:04 12/04/19 24 12/04/2023 COMPL ETE BLOOD COUNT W/DIF F neutrophils % 67.0 % Not Available Paula nunes [address] [place], [address] 12/04/2023 12:01:04 12/04/19 24 12/04/2023 COMPL ETE BLOOD COUNT W/DIF F lymphocytes % 25.4 % Not Available [address] [place], [address] 12/04/2023 12:01:04 12/04/19 24 12/04/2023 COMPL ETE BLOOD COUNT W/DIF F monocytes % 5.4 % Not Available [address] [place], [address] 12/04/2023 12:01:04 12/04/19 24 12/04/2023 COMPL ETE BLOOD COUNT W/DIF F eosinophils % 1.6 % Not Available [address] [place], [address] 12/04/2023 12:01:04 12/04/19 24 12/04/2023 COMPL ETE BLOOD COUNT W/DIF F basophils % 0.4 % Not Available [address] [place], [address] 12/04/2023 12:01:04 12/04/19 24 12/04/2023 COMPL ETE BLOOD COUNT W/DIF F immature grans % 0.2 % Not Available [address] [place], [address] 12/04/2023 12:01:04 12/04/19 24 12/04/2023 COMPL ETE BLOOD COUNT W/DIF F nucleated RBC 0.0 % 0.0-0. 3 normal Not Available [address] [place], [address] 12/04/2023 12:01:04 12/04/19 24 12/04/2023 COMPL ETE BLOOD COUNT W/DIF F absolute neutrophil count 3.37 10_3/ uL 1.2-6. 7 normal Not Available [address] [place], [address] 12/04/2023 12:01:04 12/04/19 24 12/04/2023 COMPL ETE BLOOD COUNT W/DIF F absolute lymphocyte count 1.28 10_3/ uL 1.2-3. 4 normal Not Available [address] [place], [address] 12/04/2023 12:01:04 12/04/19 24 12/04/2023 COMPL ETE BLOOD COUNT W/DIF F absolute monocyte count 0.27 10_3/ uL 0.1-0. 8 normal Not Available [address] [place], [address] 12/04/2023 12:01:04 12/04/19 24 12/04/2023 COMPL ETE BLOOD COUNT W/DIF F absolute eosinophil count 0.08 10_3/ uL 0.0-0. 7 normal Not Available [address] [place], [address] 12/04/2023 12:01:04 12/04/19 24 12/04/2023 COMPL ETE BLOOD COUNT W/DIF F absolute basophil count 0.02 10_3/ uL 0.0-0. 2 normal Not Available [address] [place], [address] 12/04/2023 12:01:04 12/04/19 24 12/04/2023 COMPR EHENS BRISSA METAB OLIC PANEL calcium 9.2 mg/dL 8.5-10 .1 normal Not Available [address] [place], [address] 12/04/2023 12:11:18 12/04/1912/04/2023 COMPR EHENS BRISSA METAB OLIC PANEL glucose 118 mg/dL 74-106 high Not Available Regina king [address] [place], [address] 12/04/2023 12:11:18 12/04/19 24 12/04/2023 COMPR EHENS BRISSA METAB OLIC PANEL BUN 9 mg/dL 7-18 normal Not Available Regina king [address] [place], [address] 12/04/2023 12:11:18 12/04/1912/04/2023 COMPR EHENS BRISSA METAB OLIC PANEL creatinine 0.4 mg/dL 0.55-1 .02 low Not Available [address] [place], [address] 12/04/2023 12:11:18 12/04/19 24 12/04/2023 COMPR EHENS [...] young er-ag ed adult s. Not Available [address] [place], [address] 12/04/2023 12:11:18 12/04/19 24 12/04/2023 COMPR EHENS BRISSA METAB OLIC PANEL total protein 7.0 g/dL 6.4-8. 2 normal Not Available [address] [place], [address] 12/04/2023 12:11:18 12/04/19 24 12/04/2023 COMPR EHENS BRISSA METAB OLIC PANEL albumin 3.1 g/dL 3.4-5. 0 low Not Available [address] [place], [address] 12/04/2023 12:11:18 12/04/19 24 12/04/2023 COMPR EHENS BRISSA METAB OLIC PANEL bilirubin, total 0.23 mg/dL 0.2-1. 0 normal Not Available [address] [place], [address] 12/04/2023 12:11:18 12/04/19 24 12/04/2023 COMPR EHENS BRISSA METAB OLIC PANEL alk phos 198 U/L 46-116 high Not Available [address] [place], [address] 12/04/2023 12:11:18 12/04/19 24 12/04/2023 COMPR EHENS BRISSA METAB OLIC PANEL sodium 143 mmol/ L 136-14 5 normal Not Available [address] [place], [address] 12/04/2023 12:11:18 12/04/19 24 12/04/2023 COMPR EHENS BRISSA METAB OLIC PANEL potassium 3.8 mmol/ L 3.5-5. 1 normal Not Available [address] [place], [address] 12/04/2023 12:11:18 12/04/19 24 12/04/2023 COMPR EHENS BRISSA METAB OLIC PANEL chloride 105 mmol/ L 98-107 normal Not Available [address] [place], [address] 12/04/2023 12:11:18 12/04/19 24 12/04/2023 COMPR EHENS BRISSA METAB OLIC PANEL CO2 28.3 mmol/ L 21.0-3 2.0 normal Not Available [address] [place], [address] 12/04/2023 12:11:18 12/04/19 24 12/04/2023 COMPR EHENS BRISSA METAB OLIC PANEL anion gap 9.7 mmol/ L 3-11 normal Not Available [address] [place], [address] 12/04/2023 12:11:18 12/04/19 24 12/04/2023 COMPR EHENS BRISSA METAB OLIC PANEL AST 35 U/L 15-37 normal Not Available Regina king [address] [place], [address] 12/04/2023 12:11:18 12/04/19 24 12/04/2023 COMPR EHENS BRISSA METAB OLIC PANEL ALT 68 U/L 14-59 high Not Available Regina king [address] [place], [address] 12/04/2023 12:11:18 12/04/19 24 12/04/2023 CRP, HIGH SENSI TIVIT Y CRP, high sensitivity >15.00 mg/L see note [facility] st order ing C-Zonia ctive Prote in Refer ence Range : Low Risk: <1.0 mg/L [place] ge Risk: 1.0 - 3.0 mg/L High Risk: >3.0 mg/L Indet ermin ate*: >10.0 mg/L *May be an indic ation of anoth er sourc e of infla mmati on or infec tion Test perfo rmed or refer red by [facility] [address], [place] [address] Not Available [address] [place], [address] 12/07/2023 08:28:05 12/07/19 24 12/07/2023 COMPL ETE BLOOD COUNT W/DIF F WBC 5.23 10_3/ uL 4.4-10 .8 normal Not Available [address] [place], [address] 12/07/2023 16:13:54 12/07/19 24 12/07/2023 COMPL ETE BLOOD COUNT W/DIF F RBC 4.20 10_6/ uL 3.93-5 .22 normal Not Available [address] [place], [address] 12/07/2023 16:13:54 12/07/19 24 12/07/2023 COMPL ETE BLOOD COUNT W/DIF F HGB 11.6 g/dL 11.2-1 5.7 normal Not Available [address] [place], [address] 12/07/2023 16:13:54 12/07/19 24 12/07/2023 COMPL ETE BLOOD COUNT W/DIF F HCT 36.8 % 36.0-4 6.0 normal Not Available [address] [place], [address] 12/07/2023 16:13:54 12/07/19 24 12/07/2023 COMPL ETE BLOOD COUNT W/DIF F MCV 88 fL 80-95 normal Not Available Regina king [address] [place], [address] 12/07/2023 16:13:54 12/07/19 24 12/07/2023 COMPL ETE BLOOD COUNT W/DIF F MCH 27.6 pg 27.0-3 3.0 normal Not Available [address] [place], [address] 12/07/2023 16:13:54 12/07/19 24 12/07/2023 COMPL ETE BLOOD COUNT W/DIF F MCHC 31.5 % 32.0-3 6.0 low Not Available [address] [place], [address] 12/07/2023 16:13:54 12/07/19 24 12/07/2023 COMPL ETE BLOOD COUNT W/DIF F RDW 15.8 % 11.7-1 4.6 high Not Available [address] [place], [address] 12/07/2023 16:13:54 12/07/19 24 12/07/2023 COMPL ETE BLOOD COUNT W/DIF F platelet count 295 10_3/ uL 130-40 0 normal Not Available [address] [place], [address] 12/07/2023 16:13:54 12/07/19 24 12/07/2023 COMPL ETE BLOOD COUNT W/DIF F MPV 10.1 fL 8.0-11 .0 normal Not Available [address] [place], [address] 12/07/2023 16:13:54 12/07/19 24 12/07/2023 COMPL ETE BLOOD COUNT W/DIF F neutrophils % 54.7 % Not Available [address] [place], [address] 12/07/2023 16:13:54 12/07/19 24 12/07/2023 COMPL ETE BLOOD COUNT W/DIF F lymphocytes % 34.4 % Not Available [address] [place], [address] 12/07/2023 16:13:54 12/07/19 24 12/07/2023 COMPL ETE BLOOD COUNT W/DIF F monocytes % 7.6 % Not Available [address] [place], [address] 12/07/2023 16:13:54 12/07/19 24 12/07/2023 COMPL ETE BLOOD COUNT W/DIF F eosinophils % 2.7 % Not Available [address] [place], [address] 12/07/2023 16:13:54 12/07/19 24 12/07/2023 COMPL ETE BLOOD COUNT W/DIF F basophils % 0.4 % Not Available [address] [place], [address] 12/07/2023 16:13:54 12/07/19 24 12/07/2023 COMPL ETE BLOOD COUNT W/DIF F immature grans % 0.2 % Not Available [address] [place], [address] 12/07/2023 16:13:54 12/07/19 24 12/07/2023 COMPL ETE BLOOD COUNT W/DIF F nucleated RBC 0.0 % 0.0-0. 3 normal Not Available [address] [place], [address] 12/07/2023 16:13:54 12/07/19 24 12/07/2023 COMPL ETE BLOOD COUNT W/DIF F absolute neutrophil count 2.86 10_3/ uL 1.2-6. 7 normal Not Available [address] [place], [address] 12/07/2023 16:13:54 12/07/19 24 12/07/2023 COMPL ETE BLOOD COUNT W/DIF F absolute lymphocyte count 1.80 10_3/ uL 1.2-3. 4 normal Not Available [address] [place], [address] 12/07/2023 16:13:54 12/07/19 24 12/07/2023 COMPL ETE BLOOD COUNT W/DIF F absolute monocyte count 0.40 10_3/ uL 0.1-0. 8 normal Not Available [address] [place], [address] 12/07/2023 16:13:54 12/07/19 24 12/07/2023 COMPL ETE BLOOD COUNT W/DIF F absolute eosinophil count 0.14 10_3/ uL 0.0-0. 7 normal Not Available [address] [place], [address] 12/07/2023 16:13:54 12/07/19 24 12/07/2023 COMPL ETE BLOOD COUNT W/DIF F absolute basophil count 0.02 10_3/ uL 0.0-0. 2 normal Not Available [address] [place], [address] 12/07/2023 16:13:54 12/07/19 24 12/07/2023 COMPR EHENS BRISSA METAB OLIC PANEL calcium 8.9 mg/dL 8.5-10 .1 normal Not Available [address] [place], [address] 12/07/2023 18:29:14 12/07/19 24 12/07/2023 COMPR EHENS BRISSA METAB OLIC PANEL glucose 83 mg/dL 74-106 normal Not Available Regina [address] [place], [address] 12/07/2023 18:29:14 12/07/19 24 12/07/2023 COMPR EHENS BRISSA METAB OLIC PANEL BUN 15 mg/dL 7-18 normal Not Available Regina [address] [facility] [place], [address] 12/07/2023 18:29:14 12/07/19 24 12/07/2023 COMPR EHENS BRISSA METAB OLIC PANEL creatinine 0.3 mg/dL 0.55-1 .02 low Not Available [address] [place], [address] 12/07/2023 18:29:14 12/07/19 24 12/07/2023 COMPR EHENS [...] young er-ag ed adult s. Not Available [address] [place], [address] 12/07/2023 18:29:14 12/07/19 24 12/07/2023 COMPR EHENS BRISSA METAB OLIC PANEL total protein 7.2 g/dL 6.4-8. 2 normal Not Available [address] [place], [address] 12/07/2023 18:29:14 12/07/19 24 12/07/2023 COMPR EHENS BRISSA METAB OLIC PANEL albumin 3.1 g/dL 3.4-5. 0 low Not Available [address] [place], [address] 12/07/2023 18:29:14 12/07/1912/07/2023 COMPR EHENS BRISSA METAB OLIC PANEL bilirubin, total 0.19 mg/dL 0.2-1. 0 low Not Available [address] [place], [address] 12/07/2023 18:29:14 12/07/19 24 12/07/2023 COMPR EHENS BRISSA METAB OLIC PANEL alk phos 201 U/L 46-116 high Not Available [address] [place], [address] 12/07/2023 18:29:14 12/07/19 24 12/07/2023 COMPR EHENS BRISSA METAB OLIC PANEL sodium 145 mmol/ L 136-14 5 normal Not Available [address] [place], [address] 12/07/2023 18:29:14 12/07/19 24 12/07/2023 COMPR EHENS BRISSA METAB OLIC PANEL potassium 3.8 mmol/ L 3.5-5. 1 normal Not Available [address] [place], [address] 12/07/2023 18:29:14 12/07/19 24 12/07/2023 COMPR EHENS BRISSA METAB OLIC PANEL chloride 104 mmol/ L 98-107 normal Not Available [address] [place], [address] 12/07/2023 18:29:14 12/07/19 24 12/07/2023 COMPR EHENS BRISSA METAB OLIC PANEL CO2 27.1 mmol/ L 21.0-3 2.0 normal Not Available [address] [place], [address] 12/07/2023 18:29:14 12/07/19 24 12/07/2023 COMPR EHENS BRISSA METAB OLIC PANEL anion gap 13.9 mmol/ L 3-11 high Not Available [address] [place], [address] 12/07/2023 18:29:14 12/07/19 24 12/07/2023 COMPR EHENS BRISSA METAB OLIC PANEL AST 31 U/L 15-37 normal Not Available Regina [address] [place], [address] 12/07/2023 18:29:14 12/07/19 24 12/07/2023 COMPR EHENS BRISSA METAB OLIC PANEL ALT 60 U/L 14-59 high Not Available Regina [address] [place], [address] 12/07/2023 18:29:14 12/07/19 24 12/07/2023 C-ZONIA CTIVE PROTE IN C-reactive protein 3.29 mg/dL <or=0. 5 high Not Available [address] [place], [address] 12/07/2023 18:29:15 12/29/19 24 12/29/2023 COMPL ETE BLOOD COUNT W/DIF F WBC 5.16 10_3/ uL 4.4-10 .8 normal Not Available [address] [place], [address] 12/29/2023 12:00:28 12/29/19 24 12/29/2023 COMPL ETE BLOOD COUNT W/DIF F RBC 4.79 10_6/ uL 3.93-5 .22 normal Not Available [address] [place], [address] 12/29/2023 12:00:28 12/29/19 24 12/29/2023 COMPL ETE BLOOD COUNT W/DIF F HGB 12.9 g/dL 11.2-1 5.7 normal Not Available [address] [place], [address] 12/29/2023 12:00:28 12/29/19 24 12/29/2023 COMPL ETE BLOOD COUNT W/DIF F HCT 41.1 % 36.0-4 6.0 normal Not Available [address] [place], [address] 12/29/2023 12:00:28 12/29/19 24 12/29/2023 COMPL ETE BLOOD COUNT W/DIF F MCV 86 fL 80-95 normal Not Available Regina [address] [place], [address] 12/29/2023 12:00:28 12/29/1912/29/2023 COMPL ETE BLOOD COUNT W/DIF F MCH 26.9 pg 27.0-3 3.0 low Not Available [address] [place], [address] 12/29/2023 12:00:28 12/29/19 24 12/29/2023 COMPL ETE BLOOD COUNT W/DIF F MCHC 31.4 % 32.0-3 6.0 low Not Available [address] [place], [address] 12/29/2023 12:00:28 12/29/19 24 12/29/2023 COMPL ETE BLOOD COUNT W/DIF F RDW 15.7 % 11.7-1 4.6 high Not Available [address] [place], [address] 12/29/2023 12:00:28 12/29/19 24 12/29/2023 COMPL ETE BLOOD COUNT W/DIF F platelet count 334 10_3/ uL 130-40 0 normal Not Available [address] [place], [address] 12/29/2023 12:00:28 12/29/19 24 12/29/2023 COMPL ETE BLOOD COUNT W/DIF F MPV 10.2 fL 8.0-11 .0 normal Not Available [address] [place], [address] 12/29/2023 12:00:28 12/29/19 24 12/29/2023 COMPL ETE BLOOD COUNT W/DIF F neutrophils % 52.0 % Not Available [address] [place], [address] 12/29/2023 12:00:28 12/29/19 24 12/29/2023 COMPL ETE BLOOD COUNT W/DIF F lymphocytes % 39.5 % Not Available [address] [place], [address] 12/29/2023 12:00:28 12/29/19 24 12/29/2023 COMPL ETE BLOOD COUNT W/DIF F monocytes % 5.8 % Not Available [address] [place], [address] 12/29/2023 12:00:28 12/29/19 24 12/29/2023 COMPL ETE BLOOD COUNT W/DIF F eosinophils % 1.7 % Not Available [address] [place], [address] 12/29/2023 12:00:28 12/29/19 24 12/29/2023 COMPL ETE BLOOD COUNT W/DIF F basophils % 0.8 % Not Available [address] [place], [address] 12/29/2023 12:00:28 12/29/19 24 12/29/2023 COMPL ETE BLOOD COUNT W/DIF F immature grans % 0.2 % Not Available [address] [place], [address] 12/29/2023 12:00:28 12/29/19 24 12/29/2023 COMPL ETE BLOOD COUNT W/DIF F nucleated RBC 0.0 % 0.0-0. 3 normal Not Available [address] [place], [address] 12/29/2023 12:00:28 12/29/19 24 12/29/2023 COMPL ETE BLOOD COUNT W/DIF F absolute neutrophil count 2.68 10_3/ uL 1.2-6. 7 normal Not Available [address] [place], [address] 12/29/2023 12:00:28 12/29/19 24 12/29/2023 COMPL ETE BLOOD COUNT W/DIF F absolute lymphocyte count 2.04 10_3/ uL 1.2-3. 4 normal Not Available [address] [place], [address] 12/29/2023 12:00:28 12/29/19 24 12/29/2023 COMPL ETE BLOOD COUNT W/DIF F absolute monocyte count 0.30 10_3/ uL 0.1-0. 8 normal Not Available [address] [place], [address] 12/29/2023 12:00:28 12/29/19 24 12/29/2023 COMPL ETE BLOOD COUNT W/DIF F absolute eosinophil count 0.09 10_3/ uL 0.0-0. 7 normal Not Available [address] [place], [address] 12/29/2023 12:00:28 12/29/19 24 12/29/2023 COMPL ETE BLOOD COUNT W/DIF F absolute basophil count 0.04 10_3/ uL 0.0-0. 2 normal Not Available [address] [place], [address] 12/29/2023 12:00:28 12/29/19 24 12/29/2023 ESR ESR 50 mm/HR 0-20 high Not Available [address] [place], [address] 12/29/2023 12:11:33 12/29/19 24 12/29/2023 COMPR EHENS BRISSA METAB OLIC PANEL calcium 9.6 mg/dL 8.5-10 .1 normal Not Available [address] [place], [address] 12/29/2023 12:40:39 12/29/19 24 12/29/2023 COMPR EHENS BRISSA METAB OLIC PANEL glucose 69 mg/dL 74-106 low Not Available Regina [address] [place], [address] 12/29/2023 12:40:39 12/29/19 24 12/29/2023 COMPR EHENS BRISSA METAB OLIC PANEL BUN 9 mg/dL 7-18 normal Not Available Regina king [address] [place], [address] 12/29/2023 12:40:39 12/29/19 24 12/29/2023 COMPR EHENS BRISSA METAB OLIC PANEL creatinine 0.4 mg/dL 0.55-1 .02 low Not Available [address] [place], [address] 12/29/2023 12:40:39 12/29/19 24 12/29/2023 COMPR EHENS BRISSA METAB OLIC PANEL estimated [...] young er-ag ed adult s. Not Available [address] [place], [address] 12/29/2023 12:40:39 12/29/19 24 12/29/2023 COMPR EHENS BRISSA METAB OLIC PANEL total protein 7.9 g/dL 6.4-8. 2 normal Not Available [address] [place], [address] 12/29/2023 12:40:39 12/29/19 24 12/29/2023 COMPR EHENS BRISSA METAB OLIC PANEL albumin 3.6 g/dL 3.4-5. 0 normal Not Available [address] [place], [address] 12/29/2023 12:40:39 12/29/19 24 12/29/2023 COMPR EHENS BRISSA METAB OLIC PANEL bilirubin, total 0.15 mg/dL 0.2-1. 0 low Not Available [address] [place], [address] 12/29/2023 12:40:39 12/29/19 24 12/29/2023 COMPR EHENS BRISSA METAB OLIC PANEL alk phos 192 U/L 46-116 high Not Available [address] [place], [address] 12/29/2023 12:40:39 12/29/19 24 12/29/2023 COMPR EHENS BRISSA METAB OLIC PANEL sodium 141 mmol/ L 136-14 5 normal Not Available [address] [place], [address] 12/29/2023 12:40:39 12/29/19 24 12/29/2023 COMPR EHENS BRISSA METAB OLIC PANEL potassium 4.3 mmol/ L 3.5-5. 1 normal Not Available [address] [place], [address] 12/29/2023 12:40:39 12/29/19 24 12/29/2023 COMPR EHENS BRISSA METAB OLIC PANEL chloride 103 mmol/ L 98-107 normal Not Available [address] [place], [address] 12/29/2023 12:40:39 12/29/19 24 12/29/2023 COMPR EHENS BRISSA METAB OLIC PANEL CO2 27.5 mmol/ L 21.0-3 2.0 normal Not Available [address] [place], [address] 12/29/2023 12:40:39 12/29/19 24 12/29/2023 COMPR EHENS BRISSA METAB OLIC PANEL anion gap 10.5 mmol/ L 3-11 normal Not Available [address] [place], [address] 12/29/2023 12:40:39 12/29/19 24 12/29/2023 COMPR EHENS BRISSA METAB OLIC PANEL AST 27 U/L 15-37 normal Not Available [address] [place], [address] 12/29/2023 12:40:39 12/29/19 24 12/29/2023 COMPR EHENS BRISSA METAB OLIC PANEL ALT 57 U/L 14-59 normal Not Available Regina king [address] [place], [address] 12/29/2023 12:40:39 12/29/1912/29/2023 C-ZONIA CTIVE PROTE IN C-reactive protein 3.08 mg/dL <or=0. 5 high Not Available [address] [place], [address] 12/29/2023 12:40:40 01/05/2001/05/2024 ESR ESR 70 mm/HR 0-20 high Not Available [address] [place], [address] 01/05/2024 12:36:31 01/05/2001/05/2024 COMPL ETE BLOOD COUNT W/DIF F WBC 5.69 10_3/ uL 4.4-10 .8 normal Not Available [address] [place], [address] 01/05/2024 12:36:33 01/05/20 24 01/05/2024 COMPL ETE BLOOD COUNT W/DIF F RBC 4.70 10_6/ uL 3.93-5 .22 normal Not Available [address] [place], [address] 01/05/2024 12:36:33 01/05/20 24 01/05/2024 COMPL ETE BLOOD COUNT W/DIF F HGB 12.6 g/dL 11.2-1 5.7 normal Not Available [address] [place], [address] 01/05/2024 12:36:33 01/05/20 24 01/05/2024 COMPL ETE BLOOD COUNT W/DIF F HCT 39.9 % 36.0-4 6.0 normal Not Available [address] [place], [address] 01/05/2024 12:36:33 01/05/20 24 01/05/2024 COMPL ETE BLOOD COUNT W/DIF F MCV 85 fL 80-95 normal Not Available Regina king [address] [place], [address] 01/05/2024 12:36:33 01/05/20 24 01/05/2024 COMPL ETE BLOOD COUNT W/DIF F MCH 26.8 pg 27.0-3 3.0 low Not Available [address] [place], [address] 01/05/2024 12:36:33 01/05/20 24 01/05/2024 COMPL ETE BLOOD COUNT W/DIF F MCHC 31.6 % 32.0-3 6.0 low Not Available [address] [place], [address] 01/05/2024 12:36:33 01/05/20 24 01/05/2024 COMPL ETE BLOOD COUNT W/DIF F RDW 16.1 % 11.7-1 4.6 high Not Available [address] [place], [address] 01/05/2024 12:36:33 01/05/20 24 01/05/2024 COMPL ETE BLOOD COUNT W/DIF F platelet count 341 10_3/ uL 130-40 0 normal Not Available [address] [place], [address] 01/05/2024 12:36:33 01/05/20 24 01/05/2024 COMPL ETE BLOOD COUNT W/DIF F MPV 10.2 fL 8.0-11 .0 normal Not Available [address] [place], [address] 01/05/2024 12:36:33 01/05/20 24 01/05/2024 COMPL ETE BLOOD COUNT W/DIF F neutrophils % 63.8 % Not Available [address] [place], [address] 01/05/2024 12:36:33 01/05/20 24 01/05/2024 COMPL ETE BLOOD COUNT W/DIF F lymphocytes % 29.0 % Not Available [address] [place], [address] 01/05/2024 12:36:33 01/05/20 24 01/05/2024 COMPL ETE BLOOD COUNT W/DIF F monocytes % 5.4 % Not Available [address] [place], [address] 01/05/2024 12:36:33 01/05/20 24 01/05/2024 COMPL ETE BLOOD COUNT W/DIF F eosinophils % 1.1 % Not Available [address] [place], [address] 01/05/2024 12:36:33 01/05/20 24 01/05/2024 COMPL ETE BLOOD COUNT W/DIF F basophils % 0.5 % Not Available [address] [place], [address] 01/05/2024 12:36:33 01/05/20 24 01/05/2024 COMPL ETE BLOOD COUNT W/DIF F immature grans % 0.2 % Not Available [address] [place], [address] 01/05/2024 12:36:33 01/05/20 24 01/05/2024 COMPL ETE BLOOD COUNT W/DIF F nucleated RBC 0.0 % 0.0-0. 3 normal Not Available [address] [place], [address] 01/05/2024 12:36:33 01/05/20 24 01/05/2024 COMPL ETE BLOOD COUNT W/DIF F absolute neutrophil count 3.63 10_3/ uL 1.2-6. 7 normal Not Available [address] [place], [address] 01/05/2024 12:36:33 01/05/20 24 01/05/2024 COMPL ETE BLOOD COUNT W/DIF F absolute lymphocyte count 1.65 10_3/ uL 1.2-3. 4 normal Not Available [address] [place], [address] 01/05/2024 12:36:33 01/05/20 24 01/05/2024 COMPL ETE BLOOD COUNT W/DIF F absolute monocyte count 0.31 10_3/ uL 0.1-0. 8 normal Not Available [address] [place], [address] 01/05/2024 12:36:33 01/05/20 24 01/05/2024 COMPL ETE BLOOD COUNT W/DIF F absolute eosinophil count 0.06 10_3/ uL 0.0-0. 7 normal Not Available [address] [place], [address] 01/05/2024 12:36:33 01/05/20 24 01/05/2024 COMPL ETE BLOOD COUNT W/DIF F absolute basophil count 0.03 10_3/ uL 0.0-0. 2 normal Not Available [address] [place], [address] 01/05/2024 12:36:33 01/05/20 24 01/05/2024 COMPR EHENS BRISSA METAB OLIC PANEL calcium 9.4 mg/dL 8.5-10 .1 normal Not Available [address] [place], [address] 01/05/2024 13:20:41 01/05/20 24 01/05/2024 COMPR EHENS BRISSA METAB OLIC PANEL glucose 71 mg/dL 74-106 low Not Available [address] [place], [address] 01/05/2024 13:20:41 01/05/20 24 01/05/2024 COMPR EHENS BRISSA METAB OLIC PANEL BUN 10 mg/dL 7-18 normal Not Available [address] [place], [address] 01/05/2024 13:20:41 01/05/20 24 01/05/2024 COMPR EHENS BRISSA METAB OLIC PANEL creatinine 0.4 mg/dL 0.55-1 .02 low Not Available [address] [place], [address] 01/05/2024 13:20:41 01/05/20 24 01/05/2024 COMPR EHENS BRISSA METAB OLIC PANEL estimated [...] young er-ag ed adult s. Not Available [address] [place], [address] 01/05/2024 13:20:41 01/05/20 24 01/05/2024 COMPR EHENS BRISSA METAB OLIC PANEL total protein 7.9 g/dL 6.4-8. 2 normal Not Available [address] [place], [address] 01/05/2024 13:20:41 01/05/20 24 01/05/2024 COMPR EHENS BRISSA METAB OLIC PANEL albumin 3.4 g/dL 3.4-5. 0 normal Not Available [address] [place], [address] 01/05/2024 13:20:41 01/05/20 24 01/05/2024 COMPR EHENS BRISSA METAB OLIC PANEL bilirubin, total 0.17 mg/dL 0.2-1. 0 low Not Available [address] [place], [address] 01/05/2024 13:20:41 01/05/20 24 01/05/2024 COMPR EHENS BRISSA METAB OLIC PANEL alk phos 239 U/L 46-116 high Not Available [address] [place], [address] 01/05/2024 13:20:41 01/05/20 24 01/05/2024 COMPR EHENS BRISSA METAB OLIC PANEL sodium 138 mmol/ L 136-14 5 normal Not Available [address] [place], [address] 01/05/2024 13:20:41 01/05/20 24 01/05/2024 COMPR EHENS BRISSA METAB OLIC PANEL potassium 4.4 mmol/ L 3.5-5. 1 normal Not Available [address] [place], [address] 01/05/2024 13:20:41 01/05/20 24 01/05/2024 COMPR EHENS BRISSA METAB OLIC PANEL chloride 101 mmol/ L 98-107 normal Not Available [address] [place], [address] 01/05/2024 13:20:41 01/05/20 24 01/05/2024 COMPR EHENS BRISSA METAB OLIC PANEL CO2 24.7 mmol/ L 21.0-3 2.0 normal Not Available [address] [place], [address] 01/05/2024 13:20:41 01/05/20 24 01/05/2024 COMPR EHENS BRISSA METAB OLIC PANEL anion gap 12.3 mmol/ L 3-11 high Not Available [address] [place], [address] 01/05/2024 13:20:41 01/05/20 24 01/05/2024 COMPR EHENS BRISSA METAB OLIC PANEL AST 35 U/L 15-37 normal Not Available Regina king [address] [place], [address] 01/05/2024 13:20:41 01/05/20 24 01/05/2024 COMPR EHENS BRISSA METAB OLIC PANEL ALT 65 U/L 14-59 high Not Available Regina [address] [facility] [place], [address] 01/05/2024 13:20:41 01/05/20 24 01/05/2024 C-ZONIA CTIVE PROTE IN C-reactive protein 6.58 mg/dL <or=0. 5 high Not Available [address] [place], [address] 01/05/2024 13:20:42 06/10/19 24 06/10/2023 x-ray imagi ng manny t Ro t Name: Tana Cavazos Unit #: [id number] Loc: DI Orderi ng Provid er: Caleb Lopez M.D. Accoun t #: [id number] Status : REG CLI Primar [...] t positi oning and scolio sis. 2. Project Administrator ior spinal rods within a right convex [...] at the addres s above. Thank- you. [facility] [address], [place], [address] 06/11/2023 05:27:44 06/10/19 24 06/10/2023 x-ray imagi ng repor t Patien t Name: Tana Cavazos Unit #: [id number] Loc: DI Orderi ng Provid er: LORENADRIAN JUSTUSGILSON Accoun t #: [id number] Status : REG CLI Primar y Care Provid er: Melody Nathalie watson patrick Date of Exam: Sex: F Admiss [...] error, please notify us immedi maxinely at [phone] and return the origin al report to us at the addres s above. Thank- you. [facility] [address], [place], [address] 06/11/2023 05:27:45 Result Notes None recorded. 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 Overall stable and well cared for. 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 Order mesh slings, caregive r will contact [facility] to see if the ones needed are availabl e through them since not able to get through [facility]. Needs new TLSO for her back, [...] Problem Code Type: ICD-10; [address], [place], [address] , [facility] 3 06:06:34 Scoliosi s deformit y of spine 004183549 Active 2016 Problem Code: M41.9; Problem Code Type: ICD-10; [address], [place], [address] , [facility] 3 06:06:35 Spasm 70213114 Active 201603/02/20 17 - Comments only - Emelyn Easley MD - Patient will need on going physical therapy to help prevent worsenin g spastici ty and contract ures. Problem Code: R25.2; Problem Code Type: ICD-10; [address], [place], [address] , [facility] 3 06:06:35 Idiopath ic urticari a 70110929 Active 2016 Problem Code: L50.1; Problem Code Type: ICD-10; [address], [place], [address] , [facility] 3 06:06:35 Supraven tricular tachycar belinda 4593035 Active 201606/08/19 18 - Comments only - Lorna Martinez APRN - monitor for now. Problem Code: I47.1; Problem Code Type: ICD-10; LORNA MARTINEZ APRN [address], [place], [address] , [facility] 3 06:06:35 Traumati c or non-trau matic injury 787629952 Active 2016 Problem Code: T14.90; Problem Code Type: ICD-10; [address], [place], [address] , [facility] 3 06:06:35 Disorder of muscle 359352309 Active 201610/21/19 17 - Comments only - Emelyn Easley MD - This causes some constipa tion that has been improved by miralax. Problem Code: M62.9; Problem Code Type: ICD-10; [address], [place], [address] , [facility] 3 06:06:35 Adult health examinat ion [...] Problem Code: Z00.00; Problem Code Type: ICD-10; [address], [place], [address] , [facility] 3 06:06:35 Impacted cerumen of bilatera l ears 85877578584 80292 Completed 201609/29/2016 09/16/19 17 - Comments only - Jade he DIRECTOR OF CARDIAC REHABILITATION - Rev'd procedur e for cerumen removal [...] H61.23; Problem Code Type: ICD-10; Not Available [facility] 3 03:53:19 Impacted cerumen 18312107 Active 201612/04/19 17 - Comments only - Jade he DIRECTOR OF CARDIAC REHABILITATION - - Cerumen not impacted today. Recommen ded to continue regular checks at future visits, discusse d appropri ate ear hygiene, and advised f/u for developm ent of symptoms such as ear pulling/ pain or trouble hearing. The patient verbaliz ed understa nding and agreemen t to this care plan. Problem Code: H61.20; Problem Code Type: ICD-10; [address], [place], [address] , [facility]. 3 06:06:35 Pre-surg isabel evaluati on Completed 201601/09/2017 12/27/19 17 - Comments only - Jade Rowan ying DIRECTOR OF CARDIAC REHABILITATION - - Pt presents for pre-op physical as she is having a DEXA scan on 12/30 at [facility] and they have requeste d that she has a physical within the last 30 days. There are no concerns raised by her aid who is with her, and no findings on exam that suggest she should not move forward with procedur e as schedule d. Problem Code: Z01.818; Problem Code Type: ICD-10; Not Available [facility] 3 03:53:19 Contract ure of joint of hand 81944745 Active 201606/08/19 18 - Comments only - Lorna Martinez APRN - continue wearing splint during the day. Wash cloth in her hand while sleeping . Continue with routine stretchi ng and movement as able. Problem Code: M24.549; Problem Code Type: ICD-10; LORNA MARTINEZ APRN [address], [place], [address] , [facility] 3 06:06:35 History of skin and/or subcutan eous tissue disease 49455161598 9105 Active 201706/08/19 18 - Comments only - Lorna Martinez APRN - has seen podiatry . Monitor feet routinel y. Problem Code: Z87.2; Problem Code Type: ICD-10; LORNA MARTINEZ APRN [address], [place], [address] , [facility] 3 06:06:35 Disorder of tooth developm ent 808257549 Completed 201703/11/2018 Problem Code: K00.9; Problem Code Type: ICD-10; Not Available [facility] 3 03:53:19 Exposure to communic able disease Completed 202004/03/2021 Problem Code: Z20.828; Problem Code Type: ICD-10; Not Available [facility] 3 03:53:20 Localize d eruption of skin 607301800 Completed 202112/08/2021 Problem Code: R21; Problem Code Type: ICD-10; Not Available [facility] 3 03:53:20 Disorder of skin appendag e 919031101 Completed 202112/08/2021 Problem Code: L73.9; Problem Code Type: ICD-10; Not Available [facility] 3 03:53:20 Sepsis caused by Escheric hia coli 544713351 Active 202208/08/19 23 - Comments only - Lorna Martinez APRN - continue mgmt through speciali . Blood drawn, may not be enough of sample but will send. If not enough, will need to come to office. drawn CBCD, CRP, CMP. Problem Code: A41.51; Problem Code Type: ICD-10; [address], 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 [address] , [facility] 3 06:06:35 Anemia 860783097 Active 2022 Problem Code: D64.9; Problem Code Type: ICD-10; [address], [facility] [address] , [facility] 3 06:06:35 Vitamin D deficien cy 40592867 Active 2022 4.4.24- After complete s current HD vitamin D she is to change to vitamin D 5000 IU once a day khb. [address], [facility] [address] , [facility] 4 07:57:05 Osteomye litis 18978768 Active 2022 Problem Code: M86.9; Problem Code Type: ICD-10; [address], [facility] [address] , [facility] 3 06:06:35 Congenit al deformit y of spine 397702783 Active 2022 Problem Code: Q67.5; Problem Code Type: ICD-10; LORNA MARTINEZ APRN [address], [facility] [address] , [facility] 3 06:06:35 Chronic osteomye litis with draining sinus 260066366 Active 2022 Problem Code: M86.48; Problem Code Type: ICD-10; LORNA MARTINEZ APRN [address], [facility] [address] , [facility] 3 06:06:35 Fever 011755699 Completed 202011/07/2021 Problem Code: R50.9; Problem Code Type: ICD-10; Not Available [facility] 3 03:53:22 Pain of toe of left foot 32392542065 9108 Completed 201603/02/2017 Problem Code: M79.675; Problem Code Type: ICD-10; Not Available [facility] 3 03:53:23 Tinea pedis 4555971 Completed 201607/17/2020 Problem Code: B35.3; Problem Code Type: ICD-10; Not Available [facility] 3 03:53:23 Device in situ 575493994 Completed 201609/02/2018 Problem Code: Z97.8; Problem Code Type: ICD-10; Not Available [facility] 3 03:53:24 Closed fracture of lower leg 302025726 Completed 201607/17/2020 Problem Code: S82.90xD ; Problem Code Type: ICD-10; Not Available [facility] 3 03:53:27 Pain of right wrist 40979718934 9100 Completed 202011/07/2021 Problem Code: M25.531; Problem Code Type: ICD-10; Not Available [facility] 3 03:53:27 Disorder of skin and/or subcutan eous tissue 60213246 Completed 201807/17/2020 Problem Code: L98.9; Problem Code Type: ICD-10; Not Available [facility] 3 03:53:28 Pain in right hip joint 89116252155 9102 Completed 202011/07/2021 Problem Code: M25.551; Problem Code Type: ICD-10; Not Available [facility] 3 03:53:30 Muscle pain 05320737 Completed 202011/07/2021 Problem Code: M79.10; Problem Code Type: ICD-10; Not Available [facility] 3 03:53:32 Pain in right lower limb 124633356 Completed 201607/17/2020 Problem Code: M79.604; Problem Code Type: ICD-10; Not Available [facility] 3 03:53:32 Vaccine adverse reaction 579034668 Completed 201911/07/2021 Not Available [facility] 3 03:53:33 Chronic ulcer of foot 162478444 Completed 201707/17/2020 Problem Code: L97.529; Problem Code Type: ICD-10; Not Available [facility] 3 03:53:33 Accident al fall Completed 201807/17/2020 Not Available [facility] 3 03:53:34 Cellulit is of toe 62912248 Completed 201605/08/2017 Problem Code: L03.039; Problem Code Type: ICD-10; Not Available [facility] 3 03:53:35 Pre-surg isabel evaluati on Completed 202202/22/2023 Problem Code: Z01.818; Problem Code Type: ICD-10; Not Available [facility] 4 05:38:03 Intertri go 34677060 Active 2023 Martha Lopez RN [facility], [place] [facility]. 4 09:39:19 Thromboc ytosis 6659783 Active 2023 LORNA MARTINEZ APRN [address], [place], [address] , [facility] 4 21:17:57 Impacted neida 95253477 Active 2023 LORNA MARTINEZ APRN [address], [place], [address] , [facility] 4 10:33:20 Notes:*Problem Name: Oliguri a and anuria *Problem Status: active *Comments: *Problem Code: R34 *Problem Code Type: ICD-10 *Note Date: 03/04/2018 Problem Notes None recorded. Procedures Surgical History Date Name Laterality Status Provider Name and Address Organization Details Recorded Time 11/10/19 18 hysteroscopic endometrial laser ablation completed MIKEY VALLADARES, [facility] 12/25/2023 10:53:02 Imaging Results Imaging Date Name Status LastModified by Organiz ation Details LastModified Time 06/10/2023 x-ray imaging report completed [address] [facility] [place], [address] 06/11/2023 05:27:44 06/10/2023 x-ray imaging report completed [address] [place], [address] 06/11/2023 05:27:45 Procedure Notes None recorded. Medical Equipment None Reported. Allergies Allergen ID Allergen Name Allergen Category Reaction Reaction Severity Criticality Documentation Date Start Date Code Code System Note Provider Name and Address Organization Details Recorded Time fluoxetin e hydrochlo ride medicatio n other mild Not available 03/06/2023201822 4 RxNorm unsur e Aller gyRea ction : 'unsu re'; Not Available [facility] 3 16:14:36 92263 doxycycli ne Not available rash severe Not available 03/06/20232022 3640 RxNorm Aller gyRea ction : 'Rash , Gastr ointe avelino l,'; Not Available [facility] 16:14:36 Medications Name Sig Start Date Stop [...] three times a day 09/27 completed last [facility] Infectio us note stated [...] Updated DateTime 04/24/2023 157.48 cm 22.7 kg/m2 06158.45 g 98 mm[Hg] 68 mm[Hg] YOGESH BENDER [facility] 3 09:07:06 Date Recorded Body height Body mass index (BMI) Body weight Oxygen saturation Oxygen saturation in Arterial blood by Pulse oximetry Heart rate Systolic blood pressure Diastolic blood pressure Provider Name and Address Organization Details Last Updated DateTime 4 157.48 cm 22.7 kg/m2 82471.4 5 g 99 % 99 % 86 /min 112 mm[Hg] 74 mm[Hg] [facility] 4 08:53:15 Date Recorded Body height Body mass index (BMI) Body weight Body temperature Oxygen saturation Oxygen saturation in Arterial blood by Pulse oximetry Heart rate Systolic blood pressure Diastolic blood pressure Provider Name and Address Organization Details Last Updated DateTime 4 157.48 cm 22.6 kg/m2 88364.9 6 g 97.9 [degF] 97 % 97 % 110 /min 98 mm[Hg] 64 mm[Hg] YOGESH BENDER [facility] 4 10:12:40 Date Recorded Body height Body temperature Oxygen saturation Oxygen saturation in Arterial blood by Pulse oximetry Heart rate Systolic blood pressure Diastolic blood pressure Provider Name and Address Organization Details Last Updated DateTime 4 157.48 cm 96.2 [degF] 99 % 99 % 68 /min 110 mm[Hg] 72 mm[Hg] YOGESH BENDER [facility] 10:37:40 Social History None recorded. Functional Status [...] Recorded Time MMR 09/16/1994 completed Not Available [facility] 03:50:44 MMR 03/20/1998 completed Not Available [facility] 03:50:45 DTaP, unspecified formulation 05/15/1994 completed Not Available [facility] 03/06/2023 03:50:45 DTaP, unspecified formulation 1993 completed Not Available [facility] 03/06/2023 03:50:45 DTaP, unspecified formulation 1993 completed Not Available [facility] 03/06/2023 03:50:45 DTaP, unspecified formulation 03/07/1994 completed Not Available [facility] 03/06/2023 03:50:45 DTaP, unspecified formulation 03/20/1998 completed Not Available [facility] 03/06/2023 03:50:45 meningococcal ACWY, unspecified formulation 09/15/2011 completed Not Available [facility] 03/06/2023 03:50:46 Td (adult), 5 Lf tetanus toxoid, preservative free, adsorbed 10/20/2016 completed Not Available [facility] 03/06/2023 03:50:46 Tdap 10/22/2018 completed Not Available [facility] 03:50:46 Tdap 11/24/2006 completed Not Available [facility] 03:50:46 Influenza, split virus, quadrivalent, PF 01/15/2021 completed Not Available [facility] 03/06/2023 03:50:47 Influenza, split virus, quadrivalent, PF 02/17/2022 completed Not Available [facility] 03/06/2023 03:50:47 Influenza, split virus, quadrivalent, PF 02/28/2019 completed Not Available [facility] 03/06/2023 03:50:48 Influenza, split virus, quadrivalent, PF 04/02/2020 completed Not Available [facility] 03/06/2023 03:50:48 Influenza, split virus, quadrivalent, preservative 03/02/2017 completed Not Available [facility] 03/06/2023 03:50:48 Influenza, split virus, quadrivalent, preservative 03/04/2018 completed Not Available [facility] 03/06/2023 03:50:48 Hib, unspecified formulation 1993 completed Not Available [facility] 03/06/2023 03:50:48 Hib, unspecified formulation 09/16/1994 completed Not Available [facility] 03/06/2023 03:50:49 Hib, unspecified formulation 1993 completed Not Available [facility] 03/06/2023 03:50:49 Hib, unspecified formulation 03/07/1994 completed Not Available [facility] 03/06/2023 03:50:49 COVID-19, mRNA, LNP-S, PF, 100 mcg/0.5mL dose or 50 mcg/0.25mL dose 08/21/2020 completed Not Available [facility] 03/06/20 03:50:49 COVID-19, mRNA, LNP-S, PF, 100 mcg/0.5mL dose or 50 mcg/0.25mL dose 09/18/2020 completed Not Available [facility] 03/06/20 03:50:49 COVID-19, mRNA, LNP-S, PF, 100 mcg/0.5mL dose or 50 mcg/0.25mL dose 04/10/2021 completed Not Available [facility] 03/06/20 03:50:50 varicella 11/24/2006 completed Not Available [facility] 03:50:50 varicella 01/21/1999 completed Not Available [facility] 03:50:50 SARS-COV-2 (COVID-19) vaccine, UNSPECIFIED 09/25/2021 completed Not Available [facility] 03/06/2023 03:50:50 Hep B, unspecified formulation 1993 completed Not Available [facility] 03/06/2023 03:50:51 Hep B, unspecified formulation 1993 completed Not Available [facility] 03/06/2023 03:50:51 Hep B, unspecified formulation 03/07/1994 completed Not Available [facility] 03/06/2023 03:50:52 Hep A, unspecified formulation 06/22/2000 completed Not Available [facility] 03/06/2023 03:50:52 Hep A, unspecified formulation 11/07/1997 completed Not Available [facility] 03/06/2023 03:50:52 influenza, unspecified formulation 01/18/2016 completed Not Available [facility] 03/06/2023 03:50:52 polio, unspecified formulation 05/15/1994 completed Not Available [facility] 03/06/2023 03:50:52 polio, unspecified formulation 1993 completed Not Available [facility] 03/06/2023 03:50:52 polio, unspecified formulation 09/15/1994 completed Not Available [facility] 03/06/2023 03:50:53 polio, unspecified formulation 03/07/1994 completed Not Available [facility] 03/06/2023 03:50:53 Influenza, split virus, quadrivalent, PF 01/23/2023 completed Not Available [facility] 05/08/2023 05:31:40 Past Encounters Encounter ID Performer Location Encounter Start Date Encounter Closed Date Diagnosis/Indication Diagnosis SNOMED-CT Code Diagnosis ICD10 Code [id number] LORNA MART[address] [address] 04/24/2023 08:44:16 04/24/2023 10:09:30 Tetraplegia 62336501 G82.50 Osteomyelitis 29898141 M 86.9 High enzym e level in serum 145523360 R74.9 [id number] [address] [address] 07/24/2023 08:40:55 07/24/2023 09:38:18 Tetraplegia 69702520 G82.50 Osteomyelitis 02429669 M 86.9 High enzym e level in serum 386910080 R74.9 [id number] L[address] M[address] [address] 11/10/2023 09:56:28 11/10/2023 12:18:07 Tetraplegia 75609428 G82.50 Osteomyelitis 56269362 M 86.9 High enzym e level in serum 750395469 R74.9 Vitamin D deficiency 347 03027 E55.9 Impacted cerumen 6431739 6 H61.23 [id number] LORNA MARTINEZ APRN [address] [address] 12/25/2023 10:23:26 12/25/2023 10:57:24 Tetraplegia 78105232 G82.50 Osteomyelitis 47097202 M 86.9 High enzym e level in serum 156450760 R74.9 Vitamin D deficiency 347 84305 E55.9 Impacted cerumen 8927070 6 H61.23 Health Concerns Section Related Observation LastModified by Organization Detai ls LastModified Time None Recorded Concern Status LastModified by Organization Details LastModified Time None Recorded Advance Directives Directive None Recorded Payers Encounter Date Sequence Insurance Name Policy Number Policy Green Covered Member ID Green Member ID Guarantor Name 04/24/2023 1 [employer] [place] [employer] ([employer]ICA[employer]) Tana Cavazos [id number] Tana Cavazos 07/24/2023 1 [employer] [place] [employer] ([employer]) Tana Cavazos [id number] Tana Cavazos 11/10/2023 1 [employer] [place] [employer] ([employer]) Tana Cavazos [id number] Tana Cavazos 12/25/2023 1 [place] [employer] ([employer]) Tana Cavazos [id number] Tana Cavazos Notes Date Note Type Note [...] [facility] and ID at [facility]. -- Has elevated inflammatory [...] increasing. She had abdominal US done at [facility] 03/28/23 and this was [...] TID did help with this. LORNA MARTINEZ, [employer] [address], [place], [address], [place] - [facility] 04/24/2023 10:55:28 07/24/2023 text/html HPI Notes: [...] [facility] and ID at [facility]. -- Has elevated inflammatory [...] increasing. She had abdominal US done at [facility] 03/28/23 and this was [...] and see how she does. LORNA MARTINEZ, [employer] MACHINE TENDER [address], [place], [address], [facility]. 07/24/2023 09:32:54 11/10/2023 text/html HPI Notes: [...] [facility] and ID at [facility]. -- Has elevated inflammatory markers that are gradually rising, specifically CRP and ESR -- Normal CK -- LFTs are elevated; initially alk phos was primarily elevated, but over the last few months her AST and ALT have been increasing. She had abdominal US done at [facility] 03/28/23 and this was [...] has full guardianship of Kalyan. LORNA MARTINEZ, [employer] MACHINE TENDER [address], [place], [address], [facility]. 11/10/2023 12:42:59 12/25/2023 text/html HPI Notes: [...] increasing. She had abdominal US done at [facility] 03/28/23 and this was [...] begin bactrim 1 BID for oral stepdown/ care home suppression. Labs repeat in 1 month for CBCD, CMP, CRP. Fannie has full guardianship of Kalyan. Air mattress has popped. LORNA MARTINEZ, [employer] MACHINE TENDER [address], [place], [address], [place] [facility]. 12/25/2023 12:05:34 OBGyn Episode No OBEpisode recorded.
--- OUTSIDE RECORDS SUMMARY | 2024-01-05 18:20 | XMS_ITS | Encounter Summary ---
Author Organization [facility] [place] [address] Care Team Providers Care Junior Automation Engineer Name Role Phone Lorna Bal APRN Primary Care Provider [phone] Reason for Referral * Diagnostic Test (Routine) - Closed Specialty Diagnoses / Procedures Referred By Contac t Referred To Contact Radiology Diagnoses Abscess Procedures IR Drain Check/Change/Remove Mich Martino MD [facility] [place] [address] [place] [address] Referral ID Status Reason Start Date Expiration Date V isits Requested Visits Authorized [id number] Closed Specialty Service Requested 12/03/2023 06/04/2025 1 1 Reason for Visit * Diagnostic Test (Routine) - Closed Specialty Diagnoses / Procedures Referred By Contac t Referred To Contact Radiology Diagnoses Abscess Procedures IR Drain Check/Change/Remove Mich Martino MD [facility] [place] [address] [place] [address] Referral ID Status Reason Start Date Expiration Date V isits Requested Visits Authorized [id number] Closed Specialty Service Requested 12/03/2023 06/04/2025 1 1 Encounter Details Date Type Department Care Team (Latest Contact Info) Description 12/21/2023 11:08 AM EDT - 12/21/2023 11:59 PM EDT Hospital [place] [address] Mich Martino MD [facility] [place] [address] Abscess Discharge Disposition: Home Social History Tobacco Use Types Packs/Day Years Used Date Smoking Tobacco: Never Passive Smoke Exposure: Never Smokeless Tobacco: Never Comments:NO SMOKERS IN THE H OME Alcohol Use Standard Drinks/Week Comments No 0 (1 standard drink = 0.6 oz pur e alcohol) [facility] Utilities Answer Date Recorded In the past 12 months has th e [employer], gas, oil, or water [employer] threatened to shut off services in your [...] any time in the past 12 m [facility], were you homeless or living in a usp (including now)? No 10/29/2023 DH IPV Inpatient [...] is during regular office hours, please call [phone]. If it is after regular office hours, or on weekends or holidays, please call [phone] and ask to speak to the Biofuels Processing Technician convention services director for Interventional Radiology. You have received medication [...] of : 1995 AGE: 28 y.o. Address: [address] [place] [address] (home) [phone] (work) Mobile: Telephone Information: Referring Provider: Mich Martino REASON FOR VISIT: Order Questions Answers Where will study be performed? [facility] Radiology [120] To be scheduled On expected [...] [Transparent Dressings] Itching and Dermatitis Please use [id number] Cyclobenzaprine Other Reaction(s): Not available Doxycycline Other [...] All Drainage Procedures 06/25/2022 Mich Martino MD [facility] INTERVENTIONL RAD IR ALL DRAINAGE PROCEDURES 07/04/2022 IR All Drainage Procedures 07/04/2022 Mich Martino MD [facility] INTERVENTIONL RAD IR ALL DRAINAGE PROCEDURES 07/24/2022 IR All Drainage Procedures 07/24/2022 Anurag Kumar MD [facility] INTERVENTIONL RAD IR ALL DRAINAGE PROCEDURES 09/26/2022 IR All Drainage Procedures 09/26/2022 Jamaal Jenkins, DO [facility] INTERVENTIONL RAD IR ALL DRAINAGE PROCEDURES 10/30/2023 IR All Drainage Procedures 10/30/2023 Andrade Melvin MD [facility] INTERVENTIONL RAD IR DRAIN CHECK/CHANGE/REMOVE 07/01/2022 IR Drain Check/Change/Remove 07/01/2022 Jamaal Jenkins, DO [facility] INTERVENTIONL RAD IR DRAIN CHECK/CHANGE/REMOVE 08/11/2022 IR Drain Check/Change/Remove 08/11/2022 Piter Self MD [facility] INTERVENTIONL RAD IR DRAIN CHECK/CHANGE/REMOVE 08/25/2022 IR Drain Check/Change/Remove 08/25/2022 Jamaal Jenkins, DO [facility] INTERVENTIONL RAD IR DRAIN CHECK/CHANGE/REMOVE 09/10/2022 IR Drain Check/Change/Remove 09/10/2022 Mich Martino MD [facility] INTERVENTIONL RAD IR DRAIN CHECK/CHANGE/REMOVE 12/03/2023 IR Drain Check/Change/Remove [facility] INTERVENTIONL RAD PRO APPLY OF HIP CASTS, TWO LEGS 08/15/2010 CAST APPLICATION, HIP SPICA, BOTH LEGS performed by BARRERA OLIVER at [facility] MAIN OR PRO COLONOSCOPY, BIOPSY N/A 08/05/2023 COLONOSCOPY FLEXIBLE, WITH BX (WRVU 3.56) performed by Jamar Gastelum MD at [facility] ENDOSCOPY PRO I&D, POST SPINE, LUMB/SACR/LUMBOSAC N/A 05/20/2014 @I & D, OPEN, DEEP ABSCESS, LUMBAR, SACRAL, LUMBOSACRAL performed by Freddy Isbell MD at [facility] MAIN OR PRO I&D, POST SPINE, LUMB/SACR/LUMBOSAC N/A 05/26/2014 @I & D, OPEN, DEEP ABSCESS, LUMBAR, SACRAL, LUMBOSACRAL performed by Freddy Isbell MD at [facility] MAIN OR PRO IMPACT TOOTH REMOV COMP BONY N/A 06/14/2018 SURGICAL EXTRACTIONS, REMOVAL OF IMPACTED TOOTH, COMPLETELY BONY (WRVU 1.93) performed by Keith Cotton MD at [facility] OSC PRO OSTEOTOMY FEMUR SHAFT/SUPRACONDY 08/15/2010 ??OSTEOTOMY, FEMUR SHAFT OR SUPRACONDYLAR W/O FIXATION performed by BARRERA OLIVER at [facility] MAIN OR PRO RECONSTRUC HIP SOCKET, RESEC FEM HEAD 08/15/2010 ??ACETABULOPLASTY (GIRDLESTONE), RESECTION FEMORAL HEAD, BILATERAL performed by BARRERA OLIVER [facility] MAIN OR PRO REMOVAL DEEP IMPLANT 08/15/2010 REMOVAL IMPLANT, DEEP, BRUNO performed by BARRERA OLIVER at [facility] MAIN OR PRO REMOVAL ERUPTED TOOTH WITH ELEVATION OF MUCOPERIOSTEAL FLAP N/A 06/14/2018 SURGICAL EXTRACTIONS REQUIRING ELEVATION OF MUCOPERIOSTEAL FLAP AND REMOVAL OF BONE OR SECTION OF TOOTH (WRVU 1.09) performed by Keith Cotton MD at [facility] OSC PRO REMOVE INFUSN DEVICE/PUMP N/A 05/11/2014 REMOVAL OF SPINE INFUSION PUMP performed by Jamaal Samuel MD at [facility] MAIN OR PRO REMOVE SPINAL CANAL CATHETER N/A 05/11/2014 REMOVAL OF INTRATHECAL OR EPIDURAL CATHETER performed by Jamaal Samuel MD at [facility] MAIN OR PRO REPR, DURAL/CSF LEAK, NOT REQ LAMINECTOMY N/A 05/20/2014 @REPAIR DURAL\CSF LEAK,NOT REQUIRING LAMINECTOMY performed by Freddy Isbell MD at [facility] MAIN OR Medications: Current Outpatient [...] Resource Strain: Low Risk (02/21/2023) Received from [employer] Overall Financial Resource Strain (CARDIA) Difficulty of [...] PM EST Office [place] [address] Hollie Ambriz MD [facility] [place] [address] documented as of this encounter Procedures Procedure [...] mLs documented in this encounter Care Teams Junior Automation Engineer Relationship Specialty Start Date End Date Lorna Bal APRN [address] [place] [address] PCP - General Family Medicine 05/27/18 documented as of this encounter
--- OUTSIDE RECORDS SUMMARY | 2024-01-05 18:20 | XMS_ITS | Encounter Summary ---
Author Organization [facility] Address [facility] [place] [address] Care Team Providers Care Cafeteria Manager Name Role Phone Lorna Bal APRN Primary Care Provider [phone] Reason for Visit * Reason Onset Date Comments Other 12/15/2023 Encounter Details Date Type Department Care Team (Late st Contact Info) Description 12/15/2023 Telephone [place] [id number] Hollie Ambriz MD [facility] [place] [address] Other Social History Tobacco Use Types Packs/Day Years Used Date Smoking Tobacco: Never Passive Smoke Exposure: Never Smokeless Tobacco: Never Comments:NO SMOKERS IN THE H OME Alcohol Use Standard Drinks/Week Comments No 0 (1 standard drink = 0.6 oz pur e alcohol) [facility] Utilities Answer Date Recorded In the past 12 months has [employer], gas, oil, or water company threatened to [...] Relationship to Patient (if other than self):other [facility] Callback number: [phone] Best time you are available: Any Route Per Clinic Coverage Page documented in this encounter Plan of Treatment Upcoming Encounters Date Type Department Care Team (Late st Contact Info) Description 06/02/2024 12:30 PM EST Office Visit [place] [address] Hollie Ambriz MD [facility] [place] [address] documented as of this encounter Visit Diagnoses Not on filedocumented in this encounter Care Teams Cafeteria Manager Relationship Specialty Start Date End Date Lorna Bal, [place] [address] [place] [address] PCP - General Family Medicine 05/27/18 documented as of this encounter
--- OUTSIDE RECORDS SUMMARY | 2024-01-05 18:20 | XMS_ITS | Encounter Summary ---
Author Organization [facility] Address [place] [address] Care Team Providers Care Distribution Engineering Technologist Name Role Phone Lorna Bal APRN Primary Care Provider [phone] Encounter Details Date Type Department Care Team (Late st Contact Info) Description 01/05/2024 Telephone [place] [phone] None None Social History Tobacco Use Types Packs/Day Years Used Date Smoking Tobacco: Never Passive Smoke Exposure: Never Smokeless Tobacco: Never Comments:NO SMOKERS IN THE H OME Alcohol Use Standard Drinks/Week Comments No 0 (1 standard drink = 0.6 oz pur e alcohol) [facility] Utilities Answer Date Recorded In the past 12 months has e [email or web address], gas, oil, or water [email or web address] threatened to shut off services in your [...] encounter Miscellaneous Notes * Telephone Encounter - Angelica Lozano - 01/05/2024 2:59 PM EDT CLINIC PHONE COVERAGE: Reason for Call: Test Results PCP: Lorna Bal APRN / Treating provider: Hollie Ambriz MD Message: Fannie, Guardian of patient calling looking to discuss the patients recent test results. Fannie stated that she noticed that the patients levels doubled in one week and she would like to speakwith Hollie Ambriz MD or a nurse. Please call to discuss. Ordering Provider: Hollie Ambriz MD Type of Test: Labs Date of Test: Weekly Labs drawn through [facility] Caller Name (If other than patient): Fannie Relationship to Patient (if other than self): Guardian Callback number: [phone] Best time you are available: Any Route Per Clinic Coverage Page documented in this encounter Plan of Treatment Upcoming Encounters Date Type Department Care Team (Late st Contact Info) Description 06/02/2024 12:30 PM EST Office Visit [place] [address] Hollie Ambriz MD [facility] DR [place] [address] documented as of this encounter Visit Diagnoses Not on filedocumented in this encounter Care Teams Distribution Engineering Technologist Relationship Specialty Start Date End Date Lorna Bal APRN [address] [place] [address] PCP - General Family Medicine 05/27/18 documented as of this encounter
--- OUTSIDE RECORDS SUMMARY | 2024-01-05 18:20 | XMS_ITS | Continuity of Care Document ---
Author Organization [facility] Address [address] [place] [address] Assessment Encounter Date Assessment Date Assessment LastModified by Organization Details LastModified Time 12/25/2023 12/25/2023 Flu vaccine: Encouraged this fall [...] Debrox 6.5 % ear drops 2023 024 [facility], [address] [place], [address], 12/25/2023 12:05:32 cholecalc iferol (vitamin D3) 125 mcg (5,000 unit) tablet 2023 024 [facility] [place], [address], 12/25/2023 12:05:31 baclofen 15 mg tablet 2023 024 [facility] [place], [address], 12/25/2023 12:05:30 Patient TargetsNo targets recorded. Patient InstructionsNo instructions recorded. Reason for Referral Orthopedic Surgeon Referral for Tetraplegia 2nd time sending for spasms to the right wrist/ thumb. Referring Physician: Lorna Martinez [facility], Encounter Date: 07/24/2023 Orthopedic Surgeon Referral for Contracture of joint of hand hand specialist for right thumb pain and contracture of hand Referring Physician: Lorna Martinez [facility], Encounter Date: 07/28/2023 Problems Name Problem SNOMED Code Status Onset Date Resolution Date Notes Provider Name and Address Organization Details Recorded Time Consciou sness and/or awarenes s finding 860730717 Active 2016 Problem Code: R41.89; Problem Code Type: ICD-10; LORNA MARTINEZ, [place] [address], [place], [address] , [facility] 06:06:35 Tetraple janet 98348215 Active 201609/03/19 19 - Comments only - Lorna Martinez DIRECTOR [employer]S - with cognitiv e dysfunct ion, scoliosi s, spastici ty, hypotnoi a, chronic pains, contract ures with pressure ulcers to bilatera l heels. Overall stable and well cared for. 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 Order mesh slings, caregive r will contact [facility] to see if the ones needed are availabl e through them since not able to get through [facility]. Needs new TLSO for her [...] Problem Code Type: ICD-10; [address], [place], [address] , [facility] 3 06:06:34 Scoliosi s deformit y of spine 403914771 Active 2016 Problem Code: M41.9; Problem Code Type: ICD-10; [address], [place], [address] , [facility] 3 06:06:35 Spasm 35565851 Active 201603/02/20 17 - Comments only - Emelyn Easley MD - Patient will need on going physical therapy to help prevent worsenin g spastici ty and contract ures. Problem Code: R25.2; Problem Code Type: ICD-10; [address], [place], [address] , [facility] 3 06:06:35 Idiopath ic urticari a 84738758 Active 2016 Problem Code: L50.1; Problem Code Type: ICD-Kylie; [address], [place], [address] , [facility] 3 06:06:35 Supraven tricular tachycar belinda 9214030 Active 201606/08/19 18 - Comments only - Lorna Martinez APRN - monitor for now. Problem Code: I47.1; Problem Code Type: CHIKA-Kylie; [address], [place], [address] , [facility] 3 06:06:35 Traumati c or non-trau matic injury 200939784 Active 2016 Problem Code: T14.90; Problem Code Type: ICD-10; LORNA MARTINEZ APRN [address], [place], [address] , [facility] 3 06:06:35 Disorder of muscle 001905541 Active 201610/21/19 17 - Comments only - Emelyn Easley MD - This causes some constipa tion that has been improved by miralax. Problem Code: M62.9; Problem Code Type: ICD-10; LORNA MARTINEZ APRN [address], [place], [address] , [facility] 3 06:06:35 Adult health [...] ICD-10; LORNA MARTINEZ APRN [address], [place], [address] , [facility] 3 06:06:35 Impacted cerumen of bilatera l ears [id number] 43343 Completed 201609/29/2016 09/16/19 17 - Comments only - Jade he MEDICAL COMMUNICATION SPECIALIST - Rev'd procedur e for cerumen removal [...] Code Type: ICD-10; Not Available [facility] 3 03:53:19 Impacted cerumen 15244924 Active 201612/04/19 17 - Comments only - Jade he MEDICAL COMMUNICATION SPECIALIST - - Cerumen not impacted today. Recommen ded to continue regular checks at future visits, discusse d appropri ate ear hygiene, and advised f/u for developm ent of symptoms such as ear pulling/ pain or trouble hearing. The patient verbaliz ed understa nding and agreemen t to this care plan. Problem Code: H61.20; Problem Code Type: ICD-10; LORNA MARTINEZ APRN [address], [place], [address] , [facility] 3 06:06:35 Pre-surg isabel evaluati on Completed 201601/09/2017 12/27/19 17 - Comments only - Jade he MEDICAL COMMUNICATION SPECIALIST - - Pt presents for pre-op physical as she is having a DEXA scan on 12/30 at [facility] and they have requeste d that she has a physical within the last 30 days. There are no concerns raised by her aid who is with her, and no findings on exam that suggest she should not move forward with procedur e as schedule d. Problem Code: Z01.818; Problem Code Type: ICD-10; Not Available [facility] 3 03:53:19 Contract ure of joint of hand 73259167 Active 201606/08/19 18 - Comments only - Lorna Martinez DIRECTOR [employer] - continue wearing splint during the day. Wash cloth in her hand while sleeping . Continue with routine stretchi ng and movement as able. Problem Code: M24.549; Problem Code Type: ICD-10; LORNA MARTINEZ APRN [address], [place], [address] , [facility] 3 06:06:35 History of skin and/or subcutan eous tissue disease 52964849437 9105 Active 201706/08/19 18 - Comments only - Lorna Martinez APRN - has seen podiatry . Monitor feet routinel y. Problem Code: Z87.2; Problem Code Type: ICD-10; [address], [place], [address] , [facility] 3 06:06:35 Disorder of tooth developm ent 016474654 Completed 201703/11/2018 Problem Code: K00.9; Problem Code Type: ICD-10; Not Available [facility] 3 03:53:19 Exposure to communic able disease Completed 202004/03/2021 Problem Code: Z20.828; Problem Code Type: ICD-10; Not Available [facility] 3 03:53:20 Localize d eruption of skin 332353427 Completed 202112/08/2021 Problem Code: R21; Problem Code Type: ICD-10; Not Available [facility] 3 03:53:20 Disorder of skin appendag e 641603832 Completed 202112/08/2021 Problem Code: L73.9; Problem Code Type: ICD-10; Not Available [facility] 3 03:53:20 Sepsis caused by Escheric hia coli 800229834 Active 202208/08/19 23 - Comments only - Lorna Martinez APRN - continue mgmt through [facility]. Blood drawn, may not be enough of sample but will send. If not enough, will need to come to office. drawn CBCD, CRP, CMP. 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 [address], [place] [address] , [facility] 3 06:06:35 High enzyme level in serum 381725542 Active 2022 Problem Code: R74.8; Problem Code Type: ICD-10; [address], [address] 3 06:06:35 Anemia 427924385 Active 2022 Problem Code: D64.9; Problem Code Type: ICD-10; [address], [place] [address] , [facility] 3 06:06:35 Vitamin D deficien cy 16784330 Active 2022 4.4.24- After complete s current HD vitamin D she is to change to vitamin D 5000 IU once a day [address], [place] [address] , [facility] 4 07:57:05 Osteomye litis 27286380 Active 2022 Problem Code: M86.9; Problem Code Type: ICD-Kylie; [address], [facility] [address] , [facility] 3 06:06:35 Congenit al deformit y of spine 326827853 Active 2022 Problem Code: Q67.5; Problem Code Type: ICD-10; [address], [facility] [address] , [facility] 3 06:06:35 Chronic osteomye litis with draining sinus 385476275 Active 2022 Problem Code: M86.48; Problem Code Type: ICD-10; [address], [place], [address] , [facility]. 3 06:06:35 Fever 810680322 Completed 202011/07/2021 Problem Code: R50.9; Problem Code Type: ICD-10; Not Available [facility] 3 03:53:22 Pain of toe of left foot 17198023754 9108 Completed 201603/02/2017 Problem Code: M79.675; Problem Code Type: ICD-10; Not Available [facility] 3 03:53:23 Tinea pedis 1694656 Completed 201607/17/2020 Problem Code: B35.3; Problem Code Type: ICD-10; Not Available [facility] 3 03:53:23 Device in situ 607116504 Completed 201609/02/2018 Problem Code: Z97.8; Problem Code Type: ICD-10; Not Available [facility] 3 03:53:24 Closed fracture of lower leg 443533398 Completed 201607/17/2020 Problem Code: S82.90xD ; Problem Code Type: ICD-10; Not Available [facility] 3 03:53:27 Pain of right wrist 93248731269 9100 Completed 202011/07/2021 Problem Code: M25.531; Problem Code Type: ICD-10; Not Available [facility] 3 03:53:27 Disorder of skin and/or subcutan eous tissue 00804320 Completed 201807/17/2020 Problem Code: L98.9; Problem Code Type: ICD-10; Not Available [facility] 3 03:53:28 Pain in right hip joint 02076640749 9102 Completed 202011/07/2021 Problem Code: M25.551; Problem Code Type: ICD-10; Not Available [facility] 3 03:53:30 Muscle pain 00829898 Completed 202011/07/2021 Problem Code: M79.10; Problem Code Type: ICD-10; Not Available [facility] 3 03:53:32 Pain in right lower limb 039613712 Completed 201607/17/2020 Problem Code: M79.604; Problem Code Type: ICD-10; Not Available [facility] 3 03:53:32 Vaccine adverse reaction 300912263 Completed 201911/07/2021 Not Available [facility] 3 03:53:33 Chronic ulcer of foot 277404747 Completed 201707/17/2020 Problem Code: L97.529; Problem Code Type: ICD-10; Not Available [facility] 3 03:53:33 Accident al fall Completed 201807/17/2020 Not Available [facility] 3 03:53:34 Cellulit is of toe 79397548 Completed 201605/08/2017 Problem Code: L03.039; Problem Code Type: ICD-10; Not Available [facility] 3 03:53:35 Pre-surg isabel evaluati on Completed 202202/22/2023 Problem Code: Z01.818; Problem Code Type: ICD-10; Not Available [facility] 4 05:38:03 Intertri go 95932368 Active 2023 Martha Lopez RN [facility], [facility] 4 09:39:19 Thromboc ytosis 9170840 Active 2023 LORNA MARTINEZ APRN [address], [place], [address] , [facility] 4 21:17:57 Impacted cerumen 23529903 Active 2023 LORNA MARTINEZ APRN [address], [place], [address] , [facility] 4 10:33:20 Notes:*Problem Name: Oliguri a and anuria *Problem Status: active *Comments: *Problem Code: R34 *Problem Code Type: ICD-10 *Note Date: 03/04/2018 Problem Notes None recorded. Procedures Surgical History Date Name Laterality Status Provider Name and Address Organization Details Recorded Time 11/10/19 18 hysteroscopic endometrial laser ablation completed YOGESH BENDER CMA [facility], [place] - [facility] 12/25/2023 10:53:02 Imaging Results None recorded. Procedure Notes None recorded. Medical Equipment None Reported. Allergies Allergen ID Allergen Name Allergen Category Reaction Reaction Severity Criticality Documentation Date Start Date Code Code System Note Provider Name and Address Organization Details Recorded Time fluoxetin e hydrochlo ride medicatio n other mild Not available 03/06/20232018 83015 4 RxNorm unsur e Aller gyRea ction : 'unsu re'; Not Available [facility] 3 16:14:36 80083 doxycycli ne Not available rash severe Not available 03/06/20232022 3640 RxNorm Aller gyRea ction : 'Rash , Gastr ointe avelino l,'; Not Available [facility] 3 16:14:36 Medications Name Sig Start Date Stop Date Status Note LastModified by Organization Details LastModified Time acetamino phen 325 mg tablet Take 3 tablet by mouth every eight hours as needed active Per [facility] d/c summary 02/25/23 Not Available Not [...] eight hours as needed 07/23 completed Per [facility] d/c summary 02/25/23 Not Available Not [...] daily to affected area 07/23 completed Per [facility] d/c summary 02/25/23 Not Available Not [...] three times a day 09/27 completed last [facility] Infectio us note stated Bactrim DS 800-160m g 1 BID Not Available Not Available Not Available sodium chloride 0.9 % (flush) injection syringe Infuse 10ml into venous catheter 2 times a day 07/23 completed Per [facility] d/c summary 02/25/23 Not Available Not Available Not Available ceftriaxo ne 2 gram/50 mL in dextrose (iso-osm) intraveno us piggyback Infuse 2 gram intraven ously once a day Infuse 50ml (2g total) into a venous catheter daily 07/23 completed Per [facility] d/c summary 02/25/23 Not Available Not [...] 12 patch free hours) 07/23 completed Per [facility] d/c summary 02/25/23 Not Available Not Available Not Available baclofen 15 mg tablet Take 1 tablet 3 times a day by oral route for 3 days. 2023 active Not Available Not Available Not Avai lable Vitals Date Recorded Body height Body temperature Oxygen saturation Oxygen saturation in Arterial blood by Pulse oximetry Heart rate Systolic blood pressure Diastolic blood pressure Provider Name and Address Organization Details Last Updated DateTime 4 157.48 cm 96.2 [degF] 99 % 99 % 68 /min 110 mm[Hg] 72 mm[Hg] YOGESH BENDER C[facility] [place] [facility]. 4 10:37:40 Social History None recorded. Functional [...] Recorded Time MMR 09/16/1994 completed Not Available [facility] 03:50:44 MMR 03/20/1998 completed Not Available [facility] 03:50:45 DTaP, unspecified formulation 05/15/1994 completed Not Available [facility] 03/06/2023 03:50:45 DTaP, unspecified formulation 1993 completed Not Available [facility] 03/06/2023 03:50:45 DTaP, unspecified formulation 1993 completed Not Available [facility] 03/06/2023 03:50:45 DTaP, unspecified formulation 03/07/1994 completed Not Available [facility] 03/06/2023 03:50:45 DTaP, unspecified formulation 03/20/1998 completed Not Available [facility] 03/06/2023 03:50:45 meningococcal ACWY, unspecified formulation 09/15/2011 completed Not Available [facility] 03/06/2023 03:50:46 Td (adult), 5 Lf tetanus toxoid, preservative free, adsorbed 10/20/2016 completed Not Available [facility] 03/06/2023 03:50:46 Tdap 10/22/2018 completed Not Available [facility] 03:50:46 Tdap 11/24/2006 completed Not Available [facility] 03:50:46 Influenza, split virus, quadrivalent, PF 01/15/2021 completed Not Available [facility] 03/06/2023 03:50:47 Influenza, split virus, quadrivalent, PF 02/17/2022 completed Not Available [facility] 03/06/2023 03:50:47 Influenza, split virus, quadrivalent, PF 02/28/2019 completed Not Available [facility] 03/06/2023 03:50:48 Influenza, split virus, quadrivalent, PF 04/02/2020 completed Not Available [facility] 03/06/2023 03:50:48 Influenza, split virus, quadrivalent, preservative 03/02/2017 completed Not Available [facility] 03/06/2023 03:50:48 Influenza, split virus, quadrivalent, preservative 03/04/2018 completed Not Available [facility] 03/06/2023 03:50:48 Hib, unspecified formulation 1993 completed Not Available [facility] 03/06/2023 03:50:48 Hib, unspecified formulation 09/16/1994 completed Not Available [facility] 03/06/2023 03:50:49 Hib, unspecified formulation 1993 completed Not Available [facility] 03/06/2023 03:50:49 Hib, unspecified formulation 03/07/1994 completed Not Available [facility] 03/06/2023 03:50:49 COVID-19, mRNA, LNP-S, PF, 100 mcg/0.5mL dose or 50 mcg/0.25mL dose 08/21/2020 completed Not Available [facility] 03/06/20 03:50:49 COVID-19, mRNA, LNP-S, PF, 100 mcg/0.5mL dose or 50 mcg/0.25mL dose 09/18/2020 completed Not Available [facility] 03/06/20 03:50:49 COVID-19, mRNA, LNP-S, PF, 100 mcg/0.5mL dose or 50 mcg/0.25mL dose 04/10/2021 completed Not Available [facility] 03/06/20 03:50:50 varicella 11/24/2006 completed Not Available [facility] 03:50:50 varicella 01/21/1999 completed Not Available [facility] 03:50:50 SARS-COV-2 (COVID-19) vaccine, UNSPECIFIED 09/25/2021 completed Not Available [facility] 03/06/2023 03:50:50 Hep B, unspecified formulation 1993 completed Not Available [facility] 03/06/2023 03:50:51 Hep B, unspecified formulation 1993 completed Not Available [facility] 03/06/2023 03:50:51 Hep B, unspecified formulation 03/07/1994 completed Not Available [facility] 03/06/2023 03:50:52 Hep A, unspecified formulation 06/22/2000 completed Not Available [facility] 03/06/2023 03:50:52 Hep A, unspecified formulation 11/07/1997 completed Not Available [facility] 03/06/2023 03:50:52 influenza, unspecified formulation 01/18/2016 completed Not Available [facility] 03/06/2023 03:50:52 polio, unspecified formulation 05/15/1994 completed Not Available [facility] 03/06/2023 03:50:52 polio, unspecified formulation 1993 completed Not Available [facility] 03/06/2023 03:50:52 polio, unspecified formulation 09/15/1994 completed Not Available [facility] 03/06/2023 03:50:53 polio, unspecified formulation 03/07/1994 completed Not Available [facility] 03/06/2023 03:50:53 Influenza, split virus, quadrivalent, PF 01/23/2023 completed Not Available [facility] 05/08/2023 05:31:40 Past Encounters Encounter ID Performer Location Encounter Start Date Encounter Closed Date Diagnosis/Indication Diagnosis SNOMED-CT Code Diagnosis ICD10 Code [id number] LORNA MARTINEZ [address] [address] 12/25/2023 10:23:26 12/25/2023 10:57:24 Tetraplegia 66547745 G82.50 Osteomyelitis 41945348 M 86.9 High enzym e level in serum 020007659 R74.9 Vitamin D deficiency 347 57581 E55.9 Impacted cerumen 7169945 6 H61.23 Health Concerns Section Related Observation LastModified by Organization Detai ls LastModified Time None Recorded Concern Status LastModified by Organization Details LastModified Time None Recorded Payers Encounter Date Sequence Insurance Name Policy Number Policy Green Covered Member ID Green Member ID Guarantor Name 12/25/2023 1 [facility] (MEDICAID) Tana Cavazos [id number] Tana Cavazos Notes Date Note Type Note Provider Name and Address Organization Details Recorded Time 12/25/2023 text/html HPI Notes: Is he re [...] increasing. 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 Labs repeat in 1 month for CBCD, CMP, CRP. Fannie has full guardianship of [place]. Air mattress has popped. LORNA MARTINEZ, DIRECTOR OF ENTERPRISE APPLICATIONS [address], [place], [address], [facility]. 12/25/2023 12:05:34 OBGyn Episode No OBEpisode recorded.
--- OUTSIDE RECORDS SUMMARY | 2024-01-05 18:20 | XMS_ITS | Continuity of Care Document ---
Author Organization [facility] Address [address] [place] [address] Assessment Encounter Date Assessment Date Assessment LastModified by Organization Details LastModified Time 11/10/2023 11/10/2023 The total time devoted to today's encounter, including both the ufjx-pa-kode time with the patient and/or family/caregiv er and bda-fibg-ao-fa ce time I personally spent is 35 minutes. Hospital admission: 7.3.204 Hospital discharge 7.9.24. Chronic direct care supervisor reach out 7.10.24 FU in office: 7.16.24 [...] 6.5 % ear drops 2023 024 [facility] [place], [address], 11/10/2023 10:38:18 cholecalc iferol (vitamin D3) 125 mcg (5,000 unit) tablet 2023 024 [facility] [place], [address], 11/10/2023 11:06:20 baclofen 15 mg tablet 2023 024 [facility]- [address] [place], [address], 11/10/2023 10:38:17 Patient TargetsNo targets recorded. Patient InstructionsNo instructions recorded. Reason for Referral Orthopedic Surgeon Referral for Tetraplegia 2nd time sending for spasms to the right wrist/ thumb. Referring Physician: Lorna Martinez [facility], Encounter Date: 07/24/2023 Orthopedic Surgeon Referral for Contracture of joint of hand hand specialist for right thumb pain and contracture of hand Referring Physician: Lorna Martinez [facility] Medicine, Encounter Date: 07/28/2023 Problems Name Problem SNOMED Code Status Onset Date Resolution Date Notes Provider Name and Address Organization Details Recorded Time Consciou sness and/or awarenes s finding 470657836 Active 2016 Problem Code: R41.89; Problem Code Type: ICD-10; LORNA MARTINEZ, [place] [address], [place], [address] , [facility] 06:06:35 Tetraple janet 25728770 Active 201609/03/19 19 - Comments only - Lorna Martinez RECYCLING PROGRAM MANAGER - with cognitiv e dysfunct ion, scoliosi s, spastici ty, hypotnoi a, chronic pains, contract ures with pressure ulcers to bilatera l heels. Overall stable and well cared for. 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 Order mesh slings, [facility] ones needed are availabl e through them since not able to get through [facility]. Needs new TLSO for her back, [...] push fluid intake and high fiber foods. [facility] ed good dental hygiene and see dentist routinel y. Problem Code: G82.50; Problem Code Type: ICD-10; [address], [place], [address] , [facility] 3 06:06:34 Scoliosi s deformit y of spine 279983844 Active 2016 Problem Code: M41.9; Problem Code Type: ICD-10; [address], [place], [address] , [facility] 3 06:06:35 Spasm 18468643 Active 201603/02/20 17 - Comments only - Emelyn Easley MD - Patient will need on going physical therapy to help prevent worsenin g spastici ty and contract ures. Problem Code: R25.2; Problem Code Type: ICD-10; [address], [place], [address] , [facility] 3 06:06:35 Idiopath ic urticari a 39596320 Active 2016 Problem Code: L50.1; Problem Code Type: ICD-10; [address], [place], [address] , [facility] 3 06:06:35 Supraven tricular tachycar belinda 5504298 Active 201606/08/19 18 - Comments only - Lorna Martinez APRN - monitor for now. Problem Code: I47.1; Problem Code Type: ICD-10; [address], [place], [address] , [facility] 3 06:06:35 Traumati c or non-trau matic injury 463361690 Active 2016 Problem Code: T14.90; Problem Code Type: ICD-10; LORNA MARTINEZ APRN [address], [place], [address] , [facility] 3 06:06:35 Disorder of muscle 434030561 Active 201610/21/19 17 - Comments only - Emelyn Easley MD - This causes some constipa tion that has been improved by miralax. Problem Code: M62.9; Problem Code Type: ICD-10; LORNA MARTINEZ APRN [address], [place], [address] , [facility] 3 06:06:35 Adult health examinat ion [...] ICD-10; LORNA MARTINEZ APRN [address], [place], [address] , [facility] 3 06:06:35 Impacted cerumen of bilatera l ears 43494839485 75305 Completed 201609/29/2016 09/16/19 17 - Comments only - Jade he FINISH REMOVER - Rev'd procedur e for cerumen removal [...] H61.23; Problem Code Type: ICD-10; Not Available [facility] 3 03:53:19 Impacted cerumen 03986360 Active 201612/04/19 17 - Comments only - Jade Harrisonqamar he FINISH REMOVER - - Cerumen not impacted today. Recommen ded to continue regular checks at future visits, discusse d appropri ate ear hygiene, and advised f/u for developm ent of symptoms such as ear pulling/ pain or trouble hearing. The patient verbaliz ed understa nding and agreemen t to this care plan. Problem Code: H61.20; Problem Code Type: ICD-10; LORNA MARTINEZ APRN [address], [place], [address] , [place] [facility] 3 06:06:35 Pre-surg isabel evaluati on Completed 201601/09/2017 12/27/19 17 - Comments only - Jade he FINISH REMOVER - - Pt presents for pre-op physical as she is having a [facility] scan on 12/30 at [facility] and they have requeste d that she has a physical within the last 30 days. There are no concerns raised by her aid who is with her, and no findings on exam that suggest she should not move forward with procedur e as schedule d. Problem Code: Z01.818; Problem Code Type: ICD-10; Not Available [facility] 3 03:53:19 Contract ure of joint of hand 50180607 Active 201606/08/19 18 - Comments only - Lorna Martinez APRN - continue wearing splint during the day. Wash cloth in her hand while sleeping . Continue with routine stretchi ng and movement as able. Problem Code: M24.549; Problem Code Type: ICD-10; [address], [place], [address] , [facility] 3 06:06:35 History of skin and/or subcutan eous tissue disease 77220517686 9105 Active 201706/08/19 18 - Comments only - Lorna Martinez APRN - has seen podiatry . Monitor feet routinel y. Problem Code: Z87.2; Problem Code Type: ICD-10; LORNA MARTINEZ APRN [address], [place], [address] , [facility] 3 06:06:35 Disorder of tooth developm ent 525852054 Completed 201703/11/2018 Problem Code: K00.9; Problem Code Type: ICD-10; Not Available [facility] 3 03:53:19 Exposure to communic able disease Completed 202004/03/2021 Problem Code: Z20.828; Problem Code Type: ICD-10; Not Available [facility] 3 03:53:20 Localize d eruption of skin 550392498 Completed 202112/08/2021 Problem Code: R21; Problem Code Type: ICD-10; Not Available [facility] 3 03:53:20 Disorder of skin appendag e 637792324 Completed 202112/08/2021 Problem Code: L73.9; Problem Code Type: ICD-10; Not Available [facility] 3 03:53:20 Sepsis caused by Escheric hia coli 296413064 Active 202208/08/19 23 - Comments only - Lorna Martinez APRN - continue mgmt through [facility]. Blood drawn, may not be enough of sample but will send. If not enough, will need to come to office. drawn CBCD, CRP, CMP. 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 [address], [facility] [address] [place] [address] 3 06:06:35 High enzyme level in serum 165411747 Active 2022 Problem Code: R74.8; Problem Code Type: ICD-10; [address], [facility] [address] [place] [address] 3 06:06:35 Anemia 129928894 Active 2022 Problem Code: D64.9; Problem Code Type: ICD-10; [address], [facility] [address] [place] [address] 3 06:06:35 Vitamin D deficien cy 75922096 Active 2022 4.4.24- After complete s current HD vitamin D she is to change to vitamin D 5000 IU once a day khb. [address], [facility] [address] , [facility] 4 07:57:05 Osteomye litis 85731677 Active 2022 Problem Code: M86.9; Problem Code Type: ICD-Kylie; [address], [facility] [address] [place] [address] 3 06:06:35 Congenit al deformit y of spine 567697991 Active 2022 Problem Code: Q67.5; Problem Code Type: ICD-10; [address], [place], [address] , [facility] 3 06:06:35 Chronic osteomye litis with draining sinus 843954211 Active 2022 Problem Code: M86.48; Problem Code Type: ICD-10; LORNA MARTINEZ APRN [address], [place], [address] , [facility] 3 06:06:35 Fever 582158757 Completed 202011/07/2021 Problem Code: R50.9; Problem Code Type: ICD-10; Not Available [facility] 3 03:53:22 Pain of toe of left foot 91236882924 9108 Completed 201603/02/2017 Problem Code: M79.675; Problem Code Type: ICD-10; Not Available [facility] 3 03:53:23 Tinea pedis 4031919 Completed 201607/17/2020 Problem Code: B35.3; Problem Code Type: ICD-10; Not Available [facility] 3 03:53:23 Device in situ 362066428 Completed 201609/02/2018 Problem Code: Z97.8; Problem Code Type: ICD-10; Not Available [facility] 3 03:53:24 Closed fracture of lower leg 639633266 Completed 201607/17/2020 Problem Code: S82.90xD ; Problem Code Type: ICD-10; Not Available [facility] 3 03:53:27 Pain of right wrist 82150806302 9100 Completed 202011/07/2021 Problem Code: M25.531; Problem Code Type: ICD-10; Not Available [facility] 3 03:53:27 Disorder of skin and/or subcutan eous tissue 49699786 Completed 201807/17/2020 Problem Code: L98.9; Problem Code Type: ICD-10; Not Available [facility] 3 03:53:28 Pain in right hip joint 35202997426 9102 Completed 202011/07/2021 Problem Code: M25.551; Problem Code Type: ICD-10; Not Available [facility] 3 03:53:30 Muscle pain 31568329 Completed 202011/07/2021 Problem Code: M79.10; Problem Code Type: ICD-10; Not Available [facility] 3 03:53:32 Pain in right lower limb 326638567 Completed 201607/17/2020 Problem Code: M79.604; Problem Code Type: ICD-10; Not Available [facility] 3 03:53:32 Vaccine adverse reaction 647090663 Completed 201911/07/2021 Not Available [facility] 3 03:53:33 Chronic ulcer of foot 459746353 Completed 201707/17/2020 Problem Code: L97.529; Problem Code Type: ICD-10; Not Available [facility] 3 03:53:33 Accident al fall Completed 201807/17/2020 Not Available [facility] 3 03:53:34 Cellulit is of toe 97127722 Completed 201605/08/2017 Problem Code: L03.039; Problem Code Type: ICD-10; Not Available [facility] 3 03:53:35 Pre-surg isabel evaluati on Completed 202202/22/2023 Problem Code: Z01.818; Problem Code Type: ICD-10; Not Available [facility] 4 05:38:03 Intertri go 07561876 Active 2023 Martha Lopez RN null, [facility]. 4 09:39:19 Thromboc ytosis 6589543 Active 2023 LORNA MARTINEZ APRN [address], [place], [address] , [facility]. 4 21:17:57 Impacted cerumen 67023275 Active 2023 LORNA MARTINEZ APRN [address], [place], [address] , [facility] 4 10:33:20 Notes:*Problem Name: Oliguri a and anuria *Problem Status: active *Comments: *Problem Code: R34 *Problem Code Type: ICD-10 *Note Date: 03/04/2018 Problem Notes None recorded. Procedures Surgical History Date Name Laterality Status Provider Name and Address Organization Details Recorded Time 11/10/19 18 hysteroscopic endometrial laser ablation completed MIKEY VALLADARES, [facility] 12/25/2023 10:53:02 Imaging Results None recorded. Procedure Notes None recorded. Medical Equipment None Reported. Allergies Allergen ID Allergen Name Allergen Category Reaction Reaction Severity Criticality Documentation Date Start Date Code Code System Note Provider Name and Address Organization Details Recorded Time fluoxetin e hydrochlo ride medicatio n other mild Not available 03/06/20232018 15857 4 RxNorm unsur e Aller gyRea ction : 'unsu re'; Not Available [facility] 3 16:14:36 48128 doxycycli ne Not available rash severe Not available 03/06/20232022 3640 RxNorm Aller gyRea ction : 'Rash , Gastr ointe avelino l,'; Not Available [facility] 3 16:14:36 Medications Name Sig Start Date [...] three times a day 09/27 completed last [facility] Infectio us note stated Bactrim DS 800-160m [...] Updated DateTime 4 157.48 cm 22.6 kg/m2 82137.9 6 g 97.9 [degF] 97 % 97 % 110 /min 98 mm[Hg] 64 mm[Hg] YOGESH BENDER [facility] 10:12:40 Social History None recorded. Functional Status [...] Time MMR 09/16/1994 completed Not Available [facility] 03:50:44 MMR 03/20/1998 completed Not Available [facility] 03:50:45 DTaP, unspecified formulation 05/15/1994 completed Not Available [facility] 03/06/2023 03:50:45 DTaP, unspecified formulation 1993 completed Not Available [facility] 03/06/2023 03:50:45 DTaP, unspecified formulation 1993 completed Not Available [facility] 03/06/2023 03:50:45 DTaP, unspecified formulation 03/07/1994 completed Not Available [facility] 03/06/2023 03:50:45 DTaP, unspecified formulation 03/20/1998 completed Not Available [facility] 03/06/2023 03:50:45 meningococcal ACWY, unspecified formulation 09/15/2011 completed Not Available [facility] 03/06/2023 03:50:46 Td (adult), 5 Lf tetanus toxoid, preservative free, adsorbed 10/20/2016 completed Not Available [facility] 03/06/2023 03:50:46 Tdap 10/22/2018 completed Not Available [facility] 03:50:46 Tdap 11/24/2006 completed Not Available [facility] 03:50:46 Influenza, split virus, quadrivalent, PF 01/15/2021 completed Not Available [facility] 03/06/2023 03:50:47 Influenza, split virus, quadrivalent, PF 02/17/2022 completed Not Available [facility] 03/06/2023 03:50:47 Influenza, split virus, quadrivalent, PF 02/28/2019 completed Not Available [facility] 03/06/2023 03:50:48 Influenza, split virus, quadrivalent, PF 04/02/2020 completed Not Available [facility] 03/06/2023 03:50:48 Influenza, split virus, quadrivalent, preservative 03/02/2017 completed Not Available [facility] 03/06/2023 03:50:48 Influenza, split virus, quadrivalent, preservative 03/04/2018 completed Not Available [facility] 03/06/2023 03:50:48 Hib, unspecified formulation 1993 completed Not Available [facility] 03/06/2023 03:50:48 Hib, unspecified formulation 09/16/1994 completed Not Available [facility] 03/06/2023 03:50:49 Hib, unspecified formulation 1993 completed Not Available [facility] 03/06/2023 03:50:49 Hib, unspecified formulation 03/07/1994 completed Not Available [facility] 03/06/2023 03:50:49 COVID-19, mRNA, LNP-S, PF, 100 mcg/0.5mL dose or 50 mcg/0.25mL dose 08/21/2020 completed Not Available [facility] 03/06/20 03:50:49 COVID-19, mRNA, LNP-S, PF, 100 mcg/0.5mL dose or 50 mcg/0.25mL dose 09/18/2020 completed Not Available [facility] 03/06/20 03:50:49 COVID-19, mRNA, LNP-S, PF, 100 mcg/0.5mL dose or 50 mcg/0.25mL dose 04/10/2021 completed Not Available [facility] 03/06/20 03:50:50 varicella 11/24/2006 completed Not Available [facility] 03:50:50 varicella 01/21/1999 completed Not Available [facility] 03:50:50 SARS-COV-2 (COVID-19) vaccine, UNSPECIFIED 09/25/2021 completed Not Available [facility] 03/06/2023 03:50:50 Hep B, unspecified formulation 1993 completed Not Available [facility] 03/06/2023 03:50:51 Hep B, unspecified formulation 1993 completed Not Available [facility] 03/06/2023 03:50:51 Hep B, unspecified formulation 03/07/1994 completed Not Available [facility] 03/06/2023 03:50:52 Hep A, unspecified formulation 06/22/2000 completed Not Available [facility] 03/06/2023 03:50:52 Hep A, unspecified formulation 11/07/1997 completed Not Available [facility] 03/06/2023 03:50:52 influenza, unspecified formulation 01/18/2016 completed Not Available [facility] 03/06/2023 03:50:52 polio, unspecified formulation 05/15/1994 completed Not Available [facility] 03/06/2023 03:50:52 polio, unspecified formulation 1993 completed Not Available [facility] 03/06/2023 03:50:52 polio, unspecified formulation 09/15/1994 completed Not Available [facility] 03/06/2023 03:50:53 polio, unspecified formulation 03/07/1994 completed Not Available [facility] 03/06/2023 03:50:53 Influenza, split virus, quadrivalent, PF 01/23/2023 completed Not Available [facility] 05/08/2023 05:31:40 Past Encounters Encounter ID Performer Location Encounter Start Date Encounter Closed Date Diagnosis/Indication Diagnosis SNOMED-CT Code Diagnosis ICD10 Code [id number] LORNA MARTINEZ RECYCLING PROGRAM MANAGER [address] [address] 11/10/2023 09:56:28 11/10/2023 12:18:07 Tetraplegia 18923903 G82.50 Osteomyelitis 57846023 M 86.9 High enzym e level in serum 120332802 R74.9 Vitamin D deficiency 347 07256 E55.9 Impacted cerumen 0197363 6 H61.23 Health Concerns Section Related Observation LastModified by Organization Detai ls LastModified Time None Recorded Concern Status LastModified by Organization Details LastModified Time None Recorded Payers Encounter Date Sequence Insurance Name Policy Number Policy Green Covered Member ID Green Member ID Guarantor Name 11/10/2023 1 [employer] (MEDICAID) Tana Cavazos [id number] Tana Cavazos Notes Date Note Type Note [...] surgeon at [facility] and ID at [facility]. -- Has elevated inflammatory markers that are gradually rising, specifically CRP and ESR -- Normal CK -- LFTs are elevated; initially alk phos was primarily elevated, but over the last few months her AST and ALT have been increasing. She had abdominal US done at [facility] 03/28/23 and this was normal. ID felt [...] has full guardianship of Kalyan. LORNA MARTINEZ, RECYCLING PROGRAM MANAGER [address], [place], [address], [facility]. 11/10/2023 12:42:59 OBGyn Episode No OBEpisode recorded.
--- OUTSIDE RECORDS SUMMARY | 2024-01-05 18:20 | XMS_ITS | Encounter Summary ---
Author Organization [facility] Address [facility] [place] [address] Care Team Providers Care Drafter Geological Name Role Phone Lorna Bal APRN Primary Care Provider [phone] Encounter Details Date Type Department Care Team (Late st Contact Info) Description 12/15/2023 Notes Only Infectious Disease at [facility] [address] Yas Tracy, RN Social History Tobacco Use Types Packs/Day Years Used Date Smoking Tobacco: Never Passive Smoke Exposure: Never Smokeless Tobacco: Never Comments:NO SMOKERS IN THE H OME Alcohol Use Standard Drinks/Week Comments No 0 (1 standard drink = 0.6 oz pur e alcohol) [facility] Utilities Answer Date Recorded In the past 12 months has e electric, gas, oil, or water [facility] threatened to shut off services in your [...] PM EST Office Visit [place] [address] Hollie Ambriz MD [facility] [place] [address] documented as of this encounter Visit Diagnoses Not on filedocumented in this encounter Care Teams Drafter Geological Relationship Specialty Start Date End Date Lorna Bal APRN [address] [place] [address] PCP - General Family Medicine 05/27/18 documented as of this encounter
--- OUTSIDE RECORDS SUMMARY | 2024-01-05 18:20 | XMS_ITS | Clinical Summary ---
[facility] Organization [facility] [place] [address] Care Team Providers Care Wire Strander Name Role Phone Lorna Bal APRN Primary Care Provider [phone] Allergies Active Allergy Reactions Criticality Noted Date Comments Cyclobenzaprine 01/28/2023 Other Reaction(s): Not available Doxycycline Other (See Comments) 08/05/2023 Cough, rash Fluoxetine Other (See Comments) High 02/28/2014 HIVES, HEART RACES Penicillins 06/24/2022 Transparent Dressings Itching,Dermatitis Medium 2014 Please use [id number] Medications Medication Sig Dispensed Refills Start Date [...] Encounters Date Type Department Care Team Description 01/05/2024 Telephone [place] [address] None 12/21/2023 11:08 AM EDT - 12/21/2023 11:59 PM EDT Hospital [place] [address] Mich Martino MD Abscess Discharge Disposition: Home 12/21/2023 Travel 12/15/2023 Notes [place] [address] Yas Tracy RN 12/15/2023 [place] [address] Hollie Ambriz MD Other 12/14/2023 Notes [place] [address] Mesha Mckeon RN 12/03/2023 1:45 PM EDT Laboratory Appointment Lab [address] [address] 12/03/2023 1:20 PM EDT - 12/03/2023 11:59 PM EDT Hospital [place] [address] Andrade Melvin MD Abscess Discharge Disposition: Home 12/03/2023 12:30 PM EDT Office [place] [address] Hollie Ambriz MD 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 Dx); 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 12/03/2023 Notes [place] [address] Mesha Mckeon, EUNICE 12/03/2023 Orders [place] [address] Hollie Ambriz MD Spinal abscess; Bacteremia; 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 12/03/2023 Travel 12/02/2023 Orders [place] [address] Hollie Ambriz MD Spinal abscess; Bacteremia 11/25/2023 2:00 PM EDT TH Visit (TeleHealth) Infectious Disease at [place] [phone] Lilli Joy APRN Osteomyelitis, unspecified site, unspecified type; Hardware complicating wound infection, subsequent encounter; 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 11/09/2023 Telephone Infectious Disease at [place] [phone] Yas Tracy RN 10/28/2023 8:05 PM EDT - 11/03/2023 5:25 PM EDT Hospital Encounter Medical Specialites Unit Level [address] [place] [address] David, MD Damaris Arias John, MD Etiwy, Muhammad, MD Ivan, Adrian M, MD Lurie, Jonathan D, MD Abscess; Spinal abscess Discharge Disposition: Home with [facility] 10/28/2023 Travel 10/28/2023 [place] [address] Neva Thorpe RN 10/28/2023 [place] [address] Neva Thorpe RN 10/28/2023 Tele[place] [address] Neva Thorpe RN 10/28/2023 Tele[place] [address] Neva Thorpe RN 10/27/2023 [place] [address] Hollie Ambriz MD 10/27/2023 [place] [address] Halima García from Last 3 Months Immunizations Name Administration Dates Next Due Influenza (Novel [id number]) Injectable 02/25/2009 Influenza Trivalent w/Preservative 04/25/2011 Influenza [...] Recorded In the past 12 months has [employer], oil, or water [employer] threatened to shut off services in your [...] EST Office Visit Infectious Disease at [facility] [place] [address] Hollie Ambriz MD [facility] [place] [address] Health Maintenance Due Date Last Done Comments HIV screen 2011 Hepatitis C Screening 2011 Hepatitis B vaccine (0-59 yrs) (1) 2012 Tdap adult 2012 Tetanus vaccine 2012 HPV test 2023 PAP Smear 2023 Covid-19 Vaccine (1 - 2022-2 4 season) 2023 Influenza (Flu) vaccine (1 o f 1 - Influenza standard series) 12/27/2023 04/25/2011, 03/27/2009, 02/25/2009 Procedures Procedure Name Priority Date/Time Associated Diagnosis Comments LAB SCAN 12/30/2023 12:00 AM EDT IR DRAIN CHECK/CHANGE/REMOVE Routine 12/21/2023 12:40 PM [...] EDT from Last 3 Months Results * Scan Doc: Lab (12/30/2023 12:00 AM EDT) Only the most recent of13 resultswithin the time period is included. Narrative 12/30/2023 12:00 AM EDT Ordered by an unspecified provider. Scanning Provider MEDIA MGR SCAN EXT O RDR/RSLT * IR Drain Check/Change/Remove (12/21/2023 12:40 PM [...] Mich Martino MD IMG IR ORDERABLES * Place PICC Line: Contact Vascular Access Page [phone] Extremity to exclude: No restrictions; Is PICC [...] to the planned procedure. Hand Hygiene: The brush clearer surveying did perform hand hygiene prior to line insertion. Catheter type: PICC Lot number: [id number] Procedure Technique: Skin was prepped with chlorhexidine. [...] Team) (11/03/2023 11:19 AM EDT) WORKSTATION ID [id number] RAD Anatomical Region Laterality Modality N/A Radio [...] medicare that requested your imaging first. ? Narrative [...] manager medicare that requested your imaging first. Isaiah Samayoa [...] resultswithin the time period is included. Pathologist [facility] C-Reactive Protein 62.8(H) <=4.9 mg/L [facility] Blood 11/02/2023 5:26 AM EDT 11/02/2023 5:44 AM EDT Narrative Resulting Agency Comment Spec In Lab Isaiah Samayoa MD CHEMISTRY ORDERABLES [facility] [place] [address] * (ABNORMAL) Hemogram (11/02/2023 5:26 AM EDT) [...] Standard Deviation 45.1 37.0 - 46.0 fL [facility] RDW coefficient of variation 14.3(H) 11.5 - 14.1 % [facility] Mean Platelet Volume 9.1 7.6 - 12.9 fL [facility] NRBC% auto 0.0 % [facility] NRBC Absolute 0.000 0.000 - 0.000 x10(3)/ L [facility] Blood 11/02/2023 5:26 AM EDT 11/02/2023 5:43 AM EDT Narrative Resulting Agency Comment Spec In Lab Isaiah Samayoa MD HEMATOLOGY ORDERABLE S [facility] [place] [address] * Differential, Automated (11/02/2023 5:26 AM EDT) Only the most recent of5 resultswithin the time period is included. Neutrophil % 69.0 % [facility] Neutrophil Absolute 5.16 1.70 - 6.10 x10(3)/mcL [facility] Lymph % 21.7 % [facility] Lymphocytes Abs 1.6 0.9 - 3.2 x10(3)/[facility] Monocyte % 6.8 % [facility] Monocyte Abs 0.5 0.3 - 0.9 x10(3)/[facility] Eos % 1.6 % [facility] Eosinophils Abs 0.1 0.0 - 0.4 x10(3)/[facility] Basophil % 0.5 % [facility] Baso Absolute 0.0 0.0 - 0.1 x10(3)/[facility] Immature Gran % 0.40 % [facility] Comment: Immature granulocytes(IG's)percentage and absolute count will include metamyelocytes, myelocytes, and promyelocytes. Blood smears from CBCs yielding IG's will be scanned manually for concordance. If this scan disagrees with the automated IG or if promyelocytes are noted, a manual differential will be performed. Immature Gran Absolute 0.03 0.00 - 0.04 x10(3)/[facility] Blood 11/02/2023 5:26 AM EDT 11/02/2023 5:43 AM EDT Narrative Resulting Agency Comment Spec In Lab Isaiah Samayoa MD [place] [address] * CK (11/02/2023 5:26 AM EDT) Only the most recent of2 resultswithin the time period is included. Creatine Kinase 14 0 - 160 unit/L [facility] Blood 11/02/2023 5:26 AM EDT 11/02/2023 5:44 AM EDT Narrative Resulting Agency Comment Spec In Lab Isaiah Samayoa MD CHEMISTRY ORDERABLES [facility] [place] [place] [address] * (ABNORMAL) Comprehensive metabolic panel (non-fasting) (11/02/2023 [...] MD CHEMISTRY ORDERABLES [facility] [place] [address] * XR Abdomen 1 view (Generic) (11/01/2023 10:14 PM EDT) WORKSTATION ID [id number] RAD Anatomical Region Laterality Modality Abdomen N/A [...] medicare that requested your imaging first. ? Narrative [...] first. Electronically signed by: Marisela Estrella MD, [facility]([phone]), at 11/02/2023 8:47 AM Mindy Benjamin Yanesfrance STRUCTURAL STEEL ERECTOR IMG DX ORDERABLES * MRSA PCR Screen ([facility]/CGP/APD/NLH) (10/31/2023 6:10 PM EDT) MRSA PCR Negative Negative [facility] MRSA (Interp) Methicillin-resist ant Staphylococcus aureus (MRSA) is NOT DETECTED The MRSA target DNA sequences (mec and SCC) were not detected within the acceptable ranges using the Xpert MRSA NxG on the GeneXpert Dx System ([employer]). This suggests the absence of MRSA in the patient specimen submitted for testing. This test is cleared by the U.S. Food and Drug Administration for clinical use and its performance characteristics have been verified by the [facility] at [facility]. This result does not rule out [...] In Lab Isaiah Samayoa MD MOLECULAR ORDERABLES Performing Organization Address [facility]/ZIP Co de Phone Number [facility] [place] [place] [address] * (ABNORMAL) Sedimentation rate (10/31/2023 4:47 AM [...] Address City/[facility]/ZIP Co de Phone Number [facility] [place] [address] * Magnesium (10/31/2023 4:47 AM EDT) Only the most recent of4 resultswithin the time period is included. Magnesium 0.86 0.69 - 1.07 mmol/L [facility] Blood 10/31/2023 4:47 AM EDT 10/31/2023 4:55 AM EDT Narrative Resulting Agency Comment Spec In Lab Sharron Winters MD CHEMISTRY ORDERABLES [facility] [place] [address] * (ABNORMAL) Basic Metabolic Panel (non-fasting) (10/31/2023 [...] In Lab Sharron Winters MD CHEMISTRY ORDERABLES [facility] [place] [address] * IR All Drainage Procedures (10/30/2023 3:23 [...] performed this procedure. ? Sharron Winters MD [facility] IR ORDERABLES * Anaerobic Culture (10/30/2023 3:02 PM EDT) Anaerobic Culture No anaerobic organisms isolated [facility] Fluid 10/30/2023 3:02 PM EDT 10/30/2023 3:47 PM EDT Comment:Infected seroma/absc ess lower mid posterior presacral region. Fluid culture. Narrative Resulting Agency Comment Spec In Lab Andrade Melvin MD MICROBIOLOGY - [facility] AL ORDERABLES [facility] [place] [place] [address] * Body Fluid Culture, Aerobic (10/30/2023 3:02 [...] - GENER AL ORDERABLES Performing Organization Address City/[facility]/ZIP Co de Phone Number [facility] [place] [place] [address] * POCT urine (10/29/2023 10:26 AM EDT) POC Urine HCG Negative POC Control Internal Controls Acceptable 10/29/2023 10:2 6 AM EDT Sharron Winters MD POINT OF CARE TEST O RDERABLES * Lactate, whole blood, send to lab ([facility]) (10/29/2023 8:37 AM EDT) Lactate WB 1.8 0.5 - 2.2 mmol/L [facility] Blood 10/29/2023 8:37 AM EDT 10/29/2023 8:47 AM EDT Narrative Resulting Agency Comment Spec In Lab Brennan Maldonado MD CHEMISTRY ORDERABLE S Performing Organization Address City/[facility]/ZIP Co de Phone Number [facility] [place] [place] [address] * Phosphorus (10/29/2023 8:37 AM EDT) Only the most recent of2 resultswithin the time period is included. Phosphorus 3.6 2.5 - 4.5 mg/dL [facility] Blood 10/29/2023 8:37 AM EDT 10/29/2023 8:47 AM EDT Narrative Resulting Agency Comment Spec In Lab Brennan Maldonado MD CHEMISTRY ORDERABLE S Performing Organization Address [facility]/ZIP Co de Phone Number [facility] [place] [place] [address] * (ABNORMAL) Urinalysis Microscopic Exam (10/29/2023 2:33 AM EDT) RBC, Urine >100(H) 0 - 4 /HPF [facility] WBC, Urine 4 0 - 5 /HPF [facility] Squamous Epithelial Cells Raw Data, Urine 4 <=4 /HPF [facility] Hyaline Casts, Urine <1 0 - 2 /LPF [facility] Comment: Interpret results with caution, microscopic results are from suboptimal specimen volume Straight Catheter Urine 10/29/2023 2:33 AM EDT 10/29/2023 2:43 AM EDT Narrative Resulting Agency Comment Spec In Lab Sharron Winters MD URINE ORDERABLES Performing Organization Address [facility]/ZIP Co de Phone Number [facility] [place] [address] * (ABNORMAL) Urinalysis with reflex Culture (10/29/2023 [...] CENTER LABORATORY Leukocytes, Urine Dipstick Negative Negative mcL [facility] Appearance, Urine Dipstick Clear Clear [facility] Specific [place] Urine Automated >=1.030(A) 1.005 - 1.030 [facility] Color, Urine Dipstick Yellow Yellow [facility] Reflex to Culture No [facility] Straight Catheter Urine 10/29/2023 2:33 AM EDT 10/29/2023 2:43 AM EDT Narrative Resulting Agency Comment Spec In Lab Sharron Winters MD URINE ORDERABLES Performing Organization Address City/State/[facility] Co de Phone Number [facility] [place] [place] [address] * CT Lumbar Spine w Contrast (10/28/2023 9:50 PM EDT) WORKSTATION ID [id number] RAD Anatomical Region Laterality Modality L-spine Computed [...] medicare that requested your imaging first. ? Narrative [...] manager medicare that requested your imaging first. 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
--- OUTSIDE RECORDS SUMMARY | 2024-01-05 18:21 | XMS_ITS | Encounter Summary ---
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 Social History Tobacco Use Types Packs/Day Years Used Date Smoking Tobacco: Never Passive Smoke Exposure: Never Smokeless Tobacco: Never Comments:NO SMOKERS IN THE H OME Alcohol Use Standard Drinks/Week Comments No 0 (1 standard drink = 0.6 oz pur e alcohol) [facility] Utilities Answer Date Recorded In the past [...] in the past 12 m [facility], were you homeless or living [...] PM EST Office [place] [address] Hollie Ambriz MD [facility] [place] [address] Scheduled Orders Name Type Priority Associated Diagnoses Orde r Schedule Cath, Percutaneous Central Cath Removal (PICC) Procedures Routine Spinal abscess Bacteremia 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
--- OUTSIDE RECORDS SUMMARY | 2024-01-05 18:21 | XMS_ITS | Encounter Summary ---
[place] [address] Care Team Providers Care Publicist Name Role Phone Lorna Bal APRN Primary Care Provider [phone] Encounter Details Date Type Department Care Team (Late st Contact Info) Description 12/03/2023 1:45 PM EDT Laboratory Appointment Lab [address] [place] [address] Social History Tobacco Use Types Packs/Day Years Used Date Smoking Tobacco: Never Passive Smoke Exposure: Never Smokeless Tobacco: Never Comments:NO SMOKERS IN THE H OME Alcohol Use Standard Drinks/Week Comments No 0 (1 standard drink = 0.6 oz pur e alcohol) [facility] Utilities Answer Date Recorded In the past 12 months has [employer], gas, oil, or water [employer] threatened to shut off services in your [...] PM EST Office [place] [address] Hollie Ambriz MD [facility] [address] [place] [address] documented as of this encounter Visit Diagnoses Not on filedocumented in this encounter Care Teams Publicist Relationship Specialty Start Date End Date Lorna Bla APRN [address] [place] [address] PCP - General Family Medicine 05/27/18 documented as of this encounter
--- OUTSIDE RECORDS SUMMARY | 2024-01-05 18:21 | XMS_ITS | Encounter Summary ---
Author Organization Formerly [facility] [place] [address] Care Team Providers Care Roll Picker Name Role Phone Lorna Bal APRN Primary Care Provider +1 [phone] Reason for Referral * Diagnostic Test (Routine) - Closed Specialty Diagnoses / Procedures Referred By Contac t Referred To Contact Radiology Diagnoses Abscess Procedures IR Drain Check/Change/Remove Mich Martino MD [facility] [place] [address] [place] [address] Referral ID Status Reason Start Date Expiration Date V isits Requested Visits Authorized [id number] Closed Specialty Service Requested 12/03/2023 06/04/2025 1 1 * Diagnostic Test (Routine) - Closed Specialty Diagnoses / Procedures Referred By Contac t Referred To Contact Radiology Diagnoses Abscess Procedures IR Drain Check/Change/Remove Andrade Melvin MD [facility] [place] [address] [place] [address] Referral ID Status Reason Start Date Expiration Date V isits Requested Visits Authorized [id number] Closed Specialty Service Requested 10/30/2023 05/01/2025 1 1 Reason for Visit * Diagnostic Test (Routine) - Closed Specialty Diagnoses / Procedures Referred By Contac t Referred To Contact Radiology Diagnoses Abscess Procedures IR Drain Check/Change/Remove Andrade Melvin MD [facility] [place] [address] [facility] [place] [address] Referral ID Status Reason Start Date Expiration Date V isits Requested Visits Authorized [id number] Closed Specialty Service Requested 10/30/2023 05/01/2025 1 1 Encounter Details Date Type Department Care Team (Latest Contact Info) Description 12/03/2023 1:20 PM EDT - 12/03/2023 11:59 PM EDT Hospital [place] [address] Andrade Melvin MD [facility] [place] [address] Abscess Discharge Disposition: Home Social History Tobacco Use Types Packs/Day Years Used Date Smoking Tobacco: Never Passive Smoke Exposure: Never Smokeless Tobacco: Never Comments:NO SMOKERS IN THE H OME Alcohol Use Standard Drinks/Week Comments No 0 (1 standard drink = 0.6 oz pur e alcohol) [facility] Utilities Answer Date Recorded In the past [...] is during regular office hours, please call [phone]. If it is after regular office hours, or on weekends or holidays, please call [phone] and ask to speak to the Senior Software Qa Analyst traffic control flagger for Interventional Radiology. Revised 02/10/19 Drainage Record [...] of : 1995 AGE: 28 y.o. Address: [address] [place] [address] (home) [phone] (work) Mobile: Telephone Information: Referring Provider: Andrade Melvin REASON FOR VISIT: Order Questions Answers Where will study be performed? [facility] Radiology [120] To be scheduled Next available [...] [Transparent Dressings] Itching and Dermatitis Please use [id number] Cyclobenzaprine Other Reaction(s): Not available Doxycycline Other [...] Yes Allergies reviewed: Yes Source Note - Webber, DEMI Torres - 11/23/2023 12:56 PM EDT Images from the original note were not included. Interventional Radiology Focused Pre-procedure H&P: PCP: Lorna Bal APRN Referring Provider: Andrade Melvin Planned procedure: Paraspinal drain check/exchange/removal Procedure indication: Chronic perihardware fluid collection, first routine drain check IR workflow: Procedure request received through Interventional Radiology eDH order queue. Order Questions Answers Where will study be performed? [facility] Radiology [120] To be scheduled Next available [...] - See Instructions). FLUSH PROTOCOL WITH MEDICATIONS ([facility]): Before med infusion: flush with NS 10 [...] - See Instructions). FLUSH PROTOCOL WITH MEDICATIONS ([facility]): Before med infusion: flush with NS 10 [...] Drainage Procedures 06/25/[address] [facility] INTERVENTIONL RAD IR ALL DRAINAGE PROCEDURES 07/04/2022 IR All Drainage Procedures 07/04/[address] [facility] INTERVENTIONL RAD IR ALL DRAINAGE PROCEDURES 07/24/2022 IR All Drainage Procedures 07/24/[address] [facility] INTERVENTIONL RAD IR ALL DRAINAGE PROCEDURES 09/26/2022 IR All Drainage Procedures 09/26/2022 Jamaal Jenkins, DO [facility] INTERVENTIONL RAD IR ALL DRAINAGE PROCEDURES 10/30/2023 IR All Drainage Procedures 10/30/[address] [facility] INTERVENTIONL RAD IR DRAIN CHECK/CHANGE/REMOVE 07/01/2022 IR Drain Check/Change/Remove 07/01/2022 Jamaal Jenkins, DO [facility] INTERVENTIONL RAD IR DRAIN CHECK/CHANGE/REMOVE 08/11/2022 IR Drain Check/Change/Remove 08/11/[address] [facility] INTERVENTIONL RAD IR DRAIN CHECK/CHANGE/REMOVE 08/25/2022 IR Drain Check/Change/Remove 08/25/2022 Jamaal Jenkins, [facility] INTERVENTIONL RAD IR DRAIN CHECK/CHANGE/REMOVE 09/10/2022 IR Drain Check/Change/Remove 09/10/[address] [facility] INTERVENTIONL RAD PRO APPLY OF HIP CASTS, TWO LEGS 08/15/2010 CAST APPLICATION, HIP SPICA, BOTH LEGS performed by BARRERA OLIVER at [facility] MAIN OR PRO COLONOSCOPY, BIOPSY N/A 08/05/2023 COLONOSCOPY FLEXIBLE, WITH BX (WRVU 3.56) performed by Jamar Gastelum MD at [facility] ENDOSCOPY PRO I&D, POST SPINE, LUMB/SACR/LUMBOSAC N/A 05/20/2014 @I & D, OPEN, DEEP ABSCESS, LUMBAR, SACRAL, LUMBOSACRAL performed by Freddy Isbell MD at [facility] MAIN OR PRO I&D, POST SPINE, LUMB/SACR/LUMBOSAC N/A 05/26/2014 @I & D, OPEN, DEEP ABSCESS, LUMBAR, SACRAL, LUMBOSACRAL performed by Freddy Isbell MD at [facility] MAIN OR PRO IMPACT TOOTH REMOV COMP BONY N/A 06/14/2018 SURGICAL EXTRACTIONS, REMOVAL OF IMPACTED TOOTH, COMPLETELY BONY (WRVU 1.93) performed by Keith Cotton MD at [facility] OSC PRO OSTEOTOMY FEMUR SHAFT/SUPRACONDY 08/15/2010 ??OSTEOTOMY, FEMUR SHAFT OR SUPRACONDYLAR W/O FIXATION performed by BARRERA OLIVER at [facility] MAIN OR PRO RECONSTRUC HIP SOCKET, RESEC FEM HEAD 08/15/2010 ??ACETABULOPLASTY (GIRDLESTONE), RESECTION FEMORAL HEAD, BILATERAL performed by BARRERA OLIVER [facility] MAIN OR PRO REMOVAL DEEP IMPLANT 08/15/2010 REMOVAL IMPLANT, DEEP, BRUNO performed by BARRERA OLIVER at [facility] MAIN OR PRO REMOVAL ERUPTED TOOTH WITH ELEVATION OF MUCOPERIOSTEAL FLAP N/A 06/14/2018 SURGICAL EXTRACTIONS REQUIRING ELEVATION OF MUCOPERIOSTEAL FLAP AND REMOVAL OF BONE OR SECTION OF TOOTH (WRVU 1.09) performed by Keith Cotton MD at [facility] OSC PRO REMOVE INFUSN DEVICE/PUMP N/A 05/11/2014 REMOVAL OF SPINE INFUSION PUMP performed by Jamaal Samuel MD at [facility] MAIN OR PRO REMOVE SPINAL CANAL CATHETER N/A 05/11/2014 REMOVAL OF INTRATHECAL OR EPIDURAL CATHETER performed by Jamaal Samuel MD at [facility] MAIN OR PRO REPR, DURAL/CSF LEAK, NOT REQ LAMINECTOMY N/A 05/20/2014 @REPAIR DURAL\CSF LEAK,NOT REQUIRING LAMINECTOMY performed by Freddy Isbell MD at [facility] MAIN OR Social History and Habits: Social [...] Questions Answers Where will study be performed? [facility] Radiology [120] To be scheduled Next available [...] Drainage Procedures 06/25/[address] [facility] INTERVENTIONL RAD IR ALL DRAINAGE PROCEDURES 07/04/2022 IR All Drainage Procedures 07/04/[address] [facility] INTERVENTIONL RAD IR ALL DRAINAGE PROCEDURES 07/24/2022 IR All Drainage Procedures 07/24/[address] [facility] INTERVENTIONL RAD IR ALL DRAINAGE PROCEDURES 09/26/2022 IR All Drainage Procedures 09/26/[address] [facility] INTERVENTIONL RAD IR ALL DRAINAGE PROCEDURES 10/30/2023 IR All Drainage Procedures 10/30/[address] [facility] INTERVENTIONL RAD IR DRAIN CHECK/CHANGE/REMOVE 07/01/2022 IR Drain Check/Change/Remove 07/01/2022 Jamaal Jenkins, DO [facility] INTERVENTIONL RAD IR DRAIN CHECK/CHANGE/REMOVE 08/11/2022 IR Drain Check/Change/Remove 08/11/[address] [facility] INTERVENTIONL RAD IR DRAIN CHECK/CHANGE/REMOVE 08/25/2022 IR Drain Check/Change/Remove 08/25/2022 Jamaal Jenkins, DO [facility] INTERVENTIONL RAD IR DRAIN CHECK/CHANGE/REMOVE 09/10/2022 IR Drain Check/Change/Remove 09/10/[address] [facility] INTERVENTIONL RAD PRO APPLY OF HIP CASTS, TWO LEGS 08/15/2010 CAST APPLICATION, HIP SPICA, BOTH LEGS performed by BARRERA OLIVER at [facility] MAIN OR PRO COLONOSCOPY, BIOPSY N/A 08/05/2023 COLONOSCOPY FLEXIBLE, WITH BX (WRVU 3.56) performed by Jamar Gastelum MD at [facility] ENDOSCOPY PRO I&D, POST SPINE, LUMB/SACR/LUMBOSAC N/A 05/20/2014 @I & D, OPEN, DEEP ABSCESS, LUMBAR, SACRAL, LUMBOSACRAL performed by Freddy Isbell MD at [facility] MAIN OR PRO I&D, POST SPINE, LUMB/SACR/LUMBOSAC N/A 05/26/2014 @I & D, OPEN, DEEP ABSCESS, LUMBAR, SACRAL, LUMBOSACRAL performed by Freddy Isbell MD at [facility] MAIN OR PRO IMPACT TOOTH REMOV COMP BONY N/A 06/14/2018 SURGICAL EXTRACTIONS, REMOVAL OF IMPACTED TOOTH, COMPLETELY BONY (WRVU 1.93) performed by Keith Cotton MD at [facility] OSC PRO OSTEOTOMY FEMUR SHAFT/SUPRACONDY 08/15/2010 ??OSTEOTOMY, FEMUR SHAFT OR SUPRACONDYLAR W/O FIXATION performed by BARRERA OLIVER at [facility] MAIN OR PRO RECONSTRUC HIP SOCKET, RESEC FEM HEAD 08/15/2010 ??ACETABULOPLASTY (GIRDLESTONE), RESECTION FEMORAL HEAD, BILATERAL performed by BARRERA OLIVER [facility] MAIN OR PRO REMOVAL DEEP IMPLANT 08/15/2010 REMOVAL IMPLANT, DEEP, BRUNO performed by BARRERA OLIVER at [facility] MAIN OR PRO REMOVAL ERUPTED TOOTH WITH ELEVATION OF MUCOPERIOSTEAL FLAP N/A 06/14/2018 SURGICAL EXTRACTIONS REQUIRING ELEVATION OF MUCOPERIOSTEAL FLAP AND REMOVAL OF BONE OR SECTION OF TOOTH (WRVU 1.09) performed by Keith Cotton MD at [facility] OSC PRO REMOVE INFUSN DEVICE/PUMP N/A 05/11/2014 REMOVAL OF SPINE INFUSION PUMP performed by Jamaal Samuel MD at [facility] MAIN OR PRO REMOVE SPINAL CANAL CATHETER N/A 05/11/2014 REMOVAL OF INTRATHECAL OR EPIDURAL CATHETER performed by Jamaal Samuel MD at [facility] MAIN OR PRO REPR, DURAL/CSF LEAK, NOT REQ LAMINECTOMY N/A 05/20/2014 @REPAIR DURAL\CSF LEAK,NOT REQUIRING LAMINECTOMY performed by Freddy Isbell MD at [facility] MAIN OR Social History and Habits: Social [...] PM EST Office [place] [address] Hollie Ambriz MD [facility] [place] [address] documented as of this encounter Procedures Procedure [...] mLs documented in this encounter Care Teams Roll Picker Relationship Specialty Start Date End Date Lorna Bal APRN [address] [place] [address] PCP - General Family Medicine 05/27/18 documented as of this encounter
--- OUTSIDE RECORDS SUMMARY | 2024-01-05 18:21 | XMS_ITS | Encounter Summary ---
[place] [address] Care Team Providers Care Green Promotions Specialist Name Role Phone Lorna Bal APRN Primary Care Provider +1 [phone] Reason for Visit * Occupational Therapy (Routine) - Closed Specialty Diagnoses / Procedures Referred By Karlo t Referred To Contact Occupational Therapy Diagnoses Chronic pain of right thumb Lucho Foster MD [facility] [place] [address] [facility] [place] [address] Referral ID Status Reason Start Date Expiration Date V isits Requested Visits Authorized [id number] Closed Consult Only 09/29/2023 09/28/2024 30 30 Encounter Details Date Type Department Care Team (Latest Contact Info) Description 09/29/2023 10:00 AM EDT Office [place] [address] Gaby Lake OT Spastic quadriparesis [...] with demonstration in therapy. 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
--- OUTSIDE RECORDS SUMMARY | 2024-01-05 18:21 | XMS_ITS | Encounter Summary ---
Author Organization Pending Sale To [facility] Address [facility] [place] [address] Care Team Providers Care Business Professor Name Role Phone Lorna Bal APRN Primary Care Provider +1 [phone] Encounter Details Date Type Department Care Team (Late st Contact Info) Description 10/27/2023 Telephone [place] [address] [facility] [place] [address] Social History Tobacco Use Types Packs/Day Years Used Date Smoking Tobacco: Never Passive Smoke Exposure: Never Smokeless Tobacco: Never Comments:NO SMOKERS IN THE H OME Alcohol Use Standard Drinks/Week Comments No 0 (1 standard drink = 0.6 oz pur e alcohol) [facility] Utilities Answer Date Recorded In the [...] time in the past [address] [facility], were you homeless or living in a nursing home (including now)? No 10/29/2023 COUNT INCLUDES THE [facility] [...] shared plan of obtaining labs locally at [facility] and ideally coordinating a CT L-spine at [facility], followed by potential IR aspiration if a [...] Office [place] [address] [facility] [place] [address] Scheduled Orders Name Type Priority Associated Diagnoses [...] documented in this encounter Care Teams Business Professor Relationship Specialty Start Date End Date Lorna Bal APRN [address] [place] [address] PCP - General Family Medicine 05/27/18 documented as of this encounter
--- OUTSIDE RECORDS SUMMARY | 2024-01-05 18:21 | XMS_ITS | Encounter Summary ---
Author Organization [facility] Address [facility] [place] [address] Care Team Providers Care Senior Audit Manager Name Role Phone Lorna Bal APRN Primary Care Provider [phone] [phone] Reason for Visit * Consultation (Routine) - Closed Specialty Diagnoses / Procedures Referred By Contac t Referred To Contact Infectious Diseases Diagnoses Spinal abscess Nikolay Toledo MD [facility] [place] [address] Nikolay Toledo MD [facility] [place] [address] Referral ID Status Reason Start Date Expiration Date V isits Requested Visits Authorized [id number] Closed Assume Subset of Care 11/02/2023 11/01/2024 1 1 Encounter Details Date Type Department Care Team (Late st Contact Info) Description 12/03/2023 12:30 PM EDT Office [place] [address] Nikolay Toledo MD [facility] [place] [address] 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 No 10/29/2023 IPV Inpatient Questions [...] [place] in 2010, who was admitted to [facility] in May 2022 for redness and tenderness [...] site, for which she was readmitted to [facility] on 07/22 to manage this issue. On arrival to [facility], she was afebrile without leukocytosis. Repeat of [...] evaluated by spine surgery multiple times at [facility] and was not deemeda candidate for operative intervention. Then, she was seen at [facility] for a second surgical opinion. On 08/27/2022, superficialCxs there revealed growth of Staph hemolyticus and capitis. She was initially continued on doxycycline for this but subsequently switched to TMP-SMX in early September 2022 given ?possible allergic reaction. She also did undergo re-insertion of IR drains on 09/26, with Cxs again returning negative. Eventually, she got a third surgical opinion at [facility] in [place] given the need for plastics closure of [...] continued to follow in ID clinic at [facility]. We discussed the equipoise as to whether [...] need to be placed back onto a extermination inspector suppressive antibiotic. Today, patient presents to ID clinic for [id number] visit, accompanied by her caregivers, Liz Mckay. [...] [Transparent Dressings] Itching and Dermatitis Please use [id number] Cyclobenzaprine Other Reaction(s): Not available Doxycycline Other [...] and washout with complex plastics closure at [facility] in [place] on 02/11/23, after which she was treated with 6 weeks of IV vancomycin + pip-tazo. Then, she was placed on suppressive TMP-SMX to complete a total of ~7 months of treatment, which was eventually stopped on 09/24/23. She was re-admitted to [facility] in early October 2023 with erythema and [...] TMP-SMX dose to a lower dose for nursing home suppression ofinfection, such as 1 DS tab daily, if all continues to go well. 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
--- OUTSIDE RECORDS SUMMARY | 2024-01-05 18:21 | XMS_ITS | Encounter Summary ---
Author Organization [facility] [place] [address] Care Team Providers Care Envelope Stamping Machine Operator Name Role Phone Lorna Bal APRN Primary Care Provider [phone] [phone] Encounter Details Date Type Department Care Team (Late st Contact Info) Description 10/27/2023 Telephone [place] [address] Halima García Social History Tobacco Use Types [...] Halima García - 10/27/2023 10:23 AM EDT animal caregiver (josy) called stating the patient's infection has returned in her back. They are requesting an order for a aspiration to be put in. documented in this encounter Plan of Treatment Upcoming Encounters Date Type Department Care Team (Late st Contact Info) Description 06/02/2024 12:30 PM EST Office Visit [place] [address] Hollie Ambriz MD [facility] INFECTIOUS [place] [address] documented as of this encounter Visit Diagnoses Not on filedocumented in this encounter Care Teams Envelope Stamping Machine Operator Relationship Specialty Start Date End Date Lorna Bal APRN [address] [place] [address] PCP - General Family Medicine 05/27/18 documented as of this encounter
--- OUTSIDE RECORDS SUMMARY | 2024-01-05 18:21 | XMS_ITS | Encounter Summary ---
Author Organization [facility] Address [facility] [place] [address] Care Team Providers Care Brush Painter Name Role Phone Lorna Bal APRN Primary Care Provider [phone] [phone] Encounter Details Date Type Department Care Team (Latest Contact Info) Description 10/28/2023 Travel Social History Tobacco Use Types Packs/Day Years Used Date Smoking Tobacco: Never Passive Smoke Exposure: Never Smokeless Tobacco: Never Comments:NO SMOKERS IN THE H OME Alcohol Use Standard Drinks/Week Comments No 0 (1 standard drink = 0.6 oz pur e alcohol) [facility] Utilities Answer Date Recorded In the past 12 months has e [employer], gas, oil, or water [employer] threatened to shut off services in your [...] PM EST Office [place] [address] Hollie Ambriz MD [facility] [place] [address] documented as of this encounter Visit Diagnoses Not on filedocumented in this encounter Care Teams Brush Painter Relationship Specialty Start Date End Date Lorna Bal APRN [address] [place] [address] PCP - General Family Medicine 05/27/18 documented as of this encounter
--- OUTSIDE RECORDS SUMMARY | 2024-01-05 18:21 | XMS_ITS | Encounter Summary ---
Author Organization [facility] Address [facility] [place] [address] Care Team Providers Care Glassware Engraver Name Role Phone Lorna Bal APRN Primary Care Provider [phone] [phone] Encounter Details Date Type Department Care Team (Late st Contact Info) Description 10/28/2023 Telephone [place] [address] Neva Thorpe, RN Social History Tobacco Use Types Packs/Day Years Used Date Smoking Tobacco: Never Passive Smoke Exposure: Never Smokeless Tobacco: Never Comments:NO SMOKERS IN THE H OME Alcohol Use Standard Drinks/Week Comments No 0 (1 standard drink = 0.6 oz pur e alcohol) [facility] Utilities Answer Date Recorded In the past 12 months has e [employer], gas, oil, or water [employer] threatened to shut off services in your [...] the past [address] [facility], were you homeless or living in a [...] back ot to Fannie: Labs drawn at [facility] today-waiting for results Area still on [...] about Fannie being the contact on the [facility] portal. 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 Plan: Fannie will call back once she has the lab results. Will call to schedule CT Scan. Fannie understands that the department is closed tomorrow for the holiday. This RN explained how to reach the provider electrical and instrumentation mechanic if necessary. Will review with Dr Hollie Ambriz 10/28/2023 1634 [facility] faxing labs over. Fannie states she is bringing Tana into the ER here at to be evaluated. Dr Ambriz updated documented in this encounter Plan of Treatment Upcoming Encounters Date Type Department Care Team (Late st Contact Info) Description 06/02/2024 12:30 PM EST Office Visit [place] [address] [facility] [place] [address] documented as of this encounter Visit Diagnoses Not on filedocumented in this encounter Care Teams Glassware Engraver Relationship Specialty Start Date End Date Lorna Bal APRN [address] [place] [address] PCP - General Family Medicine 05/27/18 documented as of this encounter
--- OUTSIDE RECORDS SUMMARY | 2024-01-05 18:21 | XMS_ITS | Encounter Summary ---
Author Organization [facility] [place] [address] Care Team Providers Care Perinatal Instructor Name Role Phone Lorna Bal APRN Primary Care Provider [phone] Encounter Details Date Type Department Care Team (Latest Contact Info) Description 08/24/2023 9:00 AM EDT TH Visit (TeleHealth) [place] [phone] Samantha Crystal APRN [facility] [place] [address] Constipation, unspecified constipation type Social History Tobacco Use Types Packs/Day Years Used Date Smoking Tobacco: Never Smokeless Tobacco: Never Comments:NO SMOKERS IN THE H OME Alcohol Use Standard Drinks/Week Comments No 0 (1 standard drink = 0.6 oz pur e alcohol) [facility] Inpatient Questions Answer Date Recorded Does [...] this encounter Progress Notes * Samantha Crystal, TOOL PLANER SET UP OPERATOR - 08/24/2023 9:00 AM EDT Gastroenterology Follow Up Telehealth Note Ms. Tana Cavazos is a 28 y.o. female who presents to the section of Gastroenterology for follow upfor constipation. 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 -Since her colonoscopy her bowels have been [...] stomach discomfort. She is being followed in [place] after hospital stay for a spinal infection. [...] All Drainage Procedures 06/25/2022 Mich Martino MD [facility] INTERVENTIONL RAD IR ALL DRAINAGE PROCEDURES 07/04/2022 IR All Drainage Procedures 07/04/2022 Mich Martino MD [facility] INTERVENTIONL RAD IR ALL DRAINAGE PROCEDURES 07/24/2022 IR All Drainage Procedures 07/24/2022 Anurag Kumar MD [facility] INTERVENTIONL RAD IR ALL DRAINAGE PROCEDURES 09/26/2022 IR All Drainage Procedures 09/26/2022 Jamaal Jenkins, DO [facility] INTERVENTIONL RAD IR DRAIN CHECK/CHANGE/REMOVE 07/01/2022 IR Drain Check/Change/Remove 07/01/2022 Jamaal Jenkins, DO [facility] INTERVENTIONL RAD IR DRAIN CHECK/CHANGE/REMOVE 08/11/2022 IR Drain Check/Change/Remove 08/11/2022 Piter Self MD [facility] INTERVENTIONL RAD IR DRAIN CHECK/CHANGE/REMOVE 08/25/2022 IR Drain Check/Change/Remove 08/25/2022 Jamaal Jenkins, DO [facility] INTERVENTIONL RAD IR DRAIN CHECK/CHANGE/REMOVE 09/10/2022 IR Drain Check/Change/Remove 09/10/2022 Mich Martino MD [facility] INTERVENTIONL RAD PRO APPLY OF HIP CASTS, TWO LEGS 08/15/2010 CAST APPLICATION, HIP SPICA, BOTH LEGS performed by BARRERA OLIVER at [facility] MAIN OR PRO COLONOSCOPY, BIOPSY N/A 08/05/2023 COLONOSCOPY FLEXIBLE, WITH BX (WRVU 3.56) performed by Jamar Gastelum MD at [facility] ENDOSCOPY PRO I&D, POST SPINE, LUMB/SACR/LUMBOSAC N/A 05/20/2014 @I & D, OPEN, DEEP ABSCESS, LUMBAR, SACRAL, LUMBOSACRAL performed by Freddy Isbell MD at [facility] MAIN OR PRO I&D, POST SPINE, LUMB/SACR/LUMBOSAC N/A 05/26/2014 @I & D, OPEN, DEEP ABSCESS, LUMBAR, SACRAL, LUMBOSACRAL performed by Freddy Isbell MD at [facility] MAIN OR PRO IMPACT TOOTH REMOV COMP BONY N/A 06/14/2018 SURGICAL EXTRACTIONS, REMOVAL OF IMPACTED TOOTH, COMPLETELY BONY (WRVU 1.93) performed by Keith Cotton MD at [facility] OSC PRO OSTEOTOMY FEMUR SHAFT/SUPRACONDY 08/15/2010 ??OSTEOTOMY, FEMUR SHAFT OR SUPRACONDYLAR W/O FIXATION performed by BARRERA OLIVER at [facility] OR PRO RECONSTRUC HIP SOCKET, RESEC FEM HEAD 08/15/2010 ??ACETABULOPLASTY (GIRDLESTONE), RESECTION FEMORAL HEAD, BILATERAL performed by BARRERA OLIVER [facility] MAIN OR PRO REMOVAL DEEP IMPLANT 08/15/2010 REMOVAL IMPLANT, DEEP, BRUNO performed by BARRERA OLIVER at [facility] MAIN OR PRO REMOVAL ERUPTED TOOTH WITH ELEVATION OF MUCOPERIOSTEAL FLAP N/A 06/14/2018 SURGICAL EXTRACTIONS REQUIRING ELEVATION OF MUCOPERIOSTEAL FLAP AND REMOVAL OF BONE OR SECTION OF TOOTH (WRVU 1.09) performed by Keith Cotton MD at [facility] OSC PRO REMOVE INFUSN DEVICE/PUMP N/A 05/11/2014 REMOVAL OF SPINE INFUSION PUMP performed by Jamaal Samuel MD at [facility] MAIN OR PRO REMOVE SPINAL CANAL CATHETER N/A 05/11/2014 REMOVAL OF INTRATHECAL OR EPIDURAL CATHETER performed by Jamaal Samuel MD at [facility] MAIN OR PRO REPR, DURAL/CSF LEAK, NOT REQ LAMINECTOMY N/A 05/20/2014 @REPAIR DURAL\CSF LEAK,NOT REQUIRING LAMINECTOMY performed by Freddy Isbell MD at [facility] MAIN OR MEDICATIONS: Current Outpatient Medications [...] [Transparent Dressings] Itching and Dermatitis Please use [id number] Cyclobenzaprine Other Reaction(s): Not available Doxycycline Other [...] Theyare requesting these to go to [facility] ([facility] I will need to request these [...] office visit: 5 minutes Samantha Crystal, MSN, TOOL PLANER SET UP OPERATOR, TECHNICAL LEAD-C Section of Gastroenterology [place] [address] documented in this encounter Plan of Treatment Upcoming Encounters Date Type Department Care Team (Late st Contact Info) Description 06/02/2024 12:30 PM EST Office [place] [address] Hollie Ambriz MD [facility] [address] [place] [address] documented as of this encounter Visit Diagnoses Diagnosis Constipation, unspecified constipation type documented in this encounter Care Teams Perinatal Instructor Relationship Specialty Start Date End Date Lorna Bal APRN [address] [place] [address] PCP - General Family Medicine 05/27/18 documented as of this encounter
--- OUTSIDE RECORDS SUMMARY | 2024-01-05 18:21 | XMS_ITS | Encounter Summary ---
Author Organization [facility] Address [facility] [place] [address] Care Team Providers Care Victorian Literature Professor Name Role Phone Lorna Bal APRN Primary Care Provider [phone] [phone] Encounter Details Date Type Department Care Team (Late st Contact Info) Description 12/03/2023 Notes [place] [phone] Mesha Mckeon, RN Social History Tobacco Use Types Packs/Day Years Used Date Smoking Tobacco: Never Passive Smoke Exposure: Never Smokeless Tobacco: Never Comments:NO SMOKERS IN THE H OME Alcohol Use Standard Drinks/Week Comments No 0 (1 standard drink = 0.6 oz pur e alcohol) [facility] Utilities Answer Date Recorded In the past 12 months has e electric, gas, oil, or water [employer] threatened to shut off services in your [...] any time in the past 12 m [facility], were you homeless or living in [...] PICC Order Faxed d/c PICC order to [facility] on 12/02 at 1645 Confirmed fax on 12/02 at 1650 documented in this encounter Plan of Treatment Upcoming Encounters Date Type Department Care Team (Late st Contact Info) Description 06/02/2024 12:30 PM EST Office [place] [phone] Hollie Ambriz MD [facility] [place] [address] documented as of this encounter Visit Diagnoses Not on filedocumented in this encounter Care Teams Victorian Literature Professor Relationship Specialty Start Date End Date Lorna Bal APRN [address] [place] [address] PCP - General Family Medicine 05/27/18 documented as of this encounter
--- OUTSIDE RECORDS SUMMARY | 2024-01-05 18:21 | XMS_ITS | Encounter Summary ---
Author Organization [facility] Address [facility] [place] [address] Care Team Providers Care Picker/Puller Name Role Phone Lorna Bal APRN Primary Care Provider +1 [phone] Encounter Details Date Type Department Care Team (Late st Contact Info) Description 10/28/2023 Telephone [place] [address] Neva Thorpe, RN Social History Tobacco Use Types Packs/Day Years Used Date Smoking Tobacco: Never Passive Smoke Exposure: Never Smokeless Tobacco: Never Comments:NO SMOKERS IN THE H OME Alcohol Use Standard Drinks/Week Comments No 0 (1 standard drink = 0.6 oz pur e alcohol) [facility] Utilities Answer Date Recorded In the past 12 months has e [employer], gas, oil, or water [employer] threatened to shut off services in your [...] in a jail (including now)? No 10/29/2023 DH IPV Inpatient [...] PM EST Office [place] [phone] Hollie Ambriz MD [facility] [place] [address] documented as of this encounter Visit Diagnoses Not on filedocumented in this encounter Care Teams Picker/Puller Relationship Specialty Start Date End Date Lorna Bal APRN [address] [place] [address] PCP - General Family Medicine 05/27/18 documented as of this encounter
--- OUTSIDE RECORDS SUMMARY | 2024-01-05 18:21 | XMS_ITS | Encounter Summary ---
Author Organization [facility] Address [facility] [address] Care Team Providers Care Stone Setter Metal Optical Frames Name Role Phone Lorna Bal APRN Primary Care Provider [phone] [phone] Encounter Details Date Type Department Care Team (Late st Contact Info) Description 12/02/2023 Orders [place] [address] Hollie Ambriz MD [facility] [place] [address] Spinal abscess; Bacteremia Social History Tobacco Use [...] any time in the past 12 m [facility], were you homeless or living [...] PM EST Office [place] [address] Hollie Ambriz MD [facility] [place] [address] Scheduled Orders Name Type Priority Associated Diagnoses [...] Bacteremia documented in this encounter Care Teams Stone Setter Metal Optical Frames Relationship Specialty Start Date End Date Lorna Bal APRN [address] [place] [address] PCP - General Family Medicine 05/27/18 documented as of this encounter
--- OUTSIDE RECORDS SUMMARY | 2024-01-05 18:21 | XMS_ITS | Encounter Summary ---
Author Organization [facility] [place] [address] Care Team Providers Care Stores Naval Name Role Phone Lorna Bal APRN Primary Care Provider [phone] Reason for Referral * Consultation (Routine) - Closed Specialty Diagnoses / Procedures Referred By Contac t Referred To Contact Infectious Diseases Diagnoses Spinal abscess Hollie Ambriz MD [facility] [place] [address] [facility] [place] [address] Referral ID Status Reason Start Date Expiration Date V isits Requested Visits Authorized [id number] Closed Assume Subset of Care 11/02/2023 11/01/2024 1 1 * Home Health Care (Routine) - Authorized Specialty Diagnoses / Procedures Referred By Contac t Referred To Contact Diagnoses Spinal abscess Wally Rosen MD [facility] [place] [address] [facility] [address] [place] [address] Referral ID Status Reason Start Date Expiration Date Visits Requested Visits Authorized [id number] Authorized Consult, Test & Treat 11/03/2023 05/01/2024 999 999 * Diagnostic Test (Routine) - Closed Specialty Diagnoses / Procedures Referred By Contac t Referred To Contact Radiology Diagnoses Abscess Procedures IR Drain Check/Change/Remove Andrade Melvin MD [facility] [place] [address] [facility] [address] Referral ID Status Reason Start Date Expiration Date V isits Requested Visits Authorized [id number] Closed Specialty Service Requested 10/30/2023 05/01/2025 1 1 Reason for Visit * Reason Comments Abscess In back * Auth/Cert (Routine) Specialty Diagnoses / Procedures Referred By Contac t Referred To Contact Diagnoses Abscess Procedures EMERGENCY IPI Sharron Winters MD [facility] [place] [address] [facility] Referral ID Status Reason Start Date Expiration Date Visits Re quested Visits Authorized [id number] 1 1 Encounter Details Date Type Department Care Team (Latest Contact Info) Description 10/28/2023 8:05 PM EDT - 11/03/2023 5:25 PM EDT Hospital Encounter Medical Specialites Unit Level 1 [place] [address] [facility] [place] [address] O[address] [facility] [place] [address] [place] [address] [place] [address] [place] [address] Abscess; Spinal abscess Discharge Disposition: Home with VNA Social History Tobacco Use Types Packs/Day Years Used Date Smoking Tobacco: Never Passive Smoke Exposure: Never Smokeless Tobacco: Never Comments:NO SMOKERS IN THE H OME Alcohol Use Standard Drinks/Week Comments No 0 (1 standard drink = 0.6 oz pur e alcohol) [facility] Utilities Answer Date Recorded In the past 12 months has th e [employer], gas, oil, or water [employer] threatened to shut off services in your [...] time in the past 12 m [facility], were you homeless or living in [...] Tana Cavazos Patient Age: 28 y.o. Language: Solomon Islander Race: White Ethnicity: Not nor Admit date: [...] please contact your inpatient physician through the [facility] Structural Biologist . Issues afterhours and on weekends will [...] inflammatory markers. Tana was then brought to [facility], where she has [...] 10/28/2023 9:50 PM) Result Value WORKSTATION ID [id number] Impression Focal heterogeneous organizing collection at the [...] have questions please contact the health rn coronary care unit that requested your imaging first. Abdomen 1 view (Generic) (Exam End: 11/01/2023 10:14 PM) Result Value WORKSTATION ID [id number] Impression 1. Rectal distention with stool. 2. No evidence of obstruction. 3. Bony demineralization, LEFT hip dysplasia, Mcnair rods, severe scoliosis Thank you for letting us participate in the care of this patient. If you are a health care provider and have any questions regarding this report, please contact the number below. For patients who have questions please contact the health rn coronary care unit that requested your imaging first. Electronically signed by: Marisela Estrella MD, [facility] ([phone]), at 11/02/2023 8:47 AM XR PICC Placement Over 5 Years with Imaging Guidance (IV Team) (Exam End: 11/03/2023 11:19 AM) Result Value WORKSTATION ID [id number] Impression Satisfactory position of left PICC. I [...] have questions please contact the health rn coronary care unit that requested your imaging first. Pending Studies and Lab Data: none Discharge Conditions/Prognosis: stable Discharge to: home with OPAT Updated Allergies/ADRs: Allergies Allergen Reactions Fluoxetine Other (See Comments) HIVES, HEART RACES Tegaderm [Transparent Dressings] Itching and Dermatitis Please use [id number] Cyclobenzaprine Other Reaction(s): Not available Doxycycline Other (See Comments) Cough, rash Penicillins Immunizations Given this Hospitalization: Immunization History Administered Date(s) Administered Influenza (Novel U8U8-72) Injectable 02/25/2009 Influenza Trivalent w/Preservative 04/25/2011 Influenza [...] for 6 weeks Your Inpatient Doctor(s) at [facility]: Paola Betancur General Instructions None Future Appointments and Orders Future Appointments and Orders Future Appointments Provider Department Dept Phone 11/30/2023 12:50 PM [facility] IR ROOM 4 Radiology at [facility] Arrive at: 3 RADIOLOGY [phone] Please expect a call from a radiology nurse within 3 days of your exam, you will need to follow theinstructions given at that time. Future Orders Complete By Expires IR Drain Check/Change/Remove [[id number] Custom] 11/30/2023 (Approximate) 05/31/2024 Process Instructions: Scheduling Instructions: Comments: Questions: Where will study be performed?: [facility] Radiology To be scheduled: Next [...] Recommendation for Post Discharge IV Antibiotic Management [TIB105 CPT(R)] As directed Process Instructions: If no progress note charted, please enter Clinical details in comments. Scheduling Instructions: Comments: - If this order was signed greater than 72 hours prior to [facility] discharge, please call to confirm the accuracy of this order. Please Fax all results to: OPAT Program Infectious Disease Section [facility], [place] [address] FAX: - After hours, please contact the Infectious Disease Physician contracts attorney at . - Line care instructions - see flush/heparin orders. Facilities may follow organizational policies/practices regarding heparin. - residential for medication administration/supervisor building maintenance and catheter care/maintenance authorized. - CVC/PICC Dressing Change weekly and PRN Please use CHG or Bio Patch RN: Please care for PICC line including dressing changes weekly and prn. Please draw labs every Thursday and PRN and fax results to [facility] at [phone]. Please draw labs off PICC line. [facility] see [facility] for lab draw details. Please RN visit for IV ABX teaching and ongoing assessment. Senior Living for Medication Administration/Hookup and catheter care/maintenance: - Teach Patient/Caregiver goals/self-monitoring/therapy administration to independence per the Nursing Care Plan. 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 [address] [place] [address] (home) [phone] (work) Date of : 1995 Inpatient DOCUMENTATION FOR VNA SERVICES (INCLUDING THOSE PATIENTS WITH MEDICARE COVERAGE REQUIRING HOME VNA SERVICES AND/OR HOSPICE SERVICES) PATIENT'S LOCATION: Tana Cavazos [address] [facility] [address] (home) Cell: Telephone Information: Button And Buckle Maker's Name: Fannie Villarreal (Guardian) [phone] (M) In discussion with the attending physician, it is certified that this patient is under their care and that they, or a Nurse Practitioner, Clinical Nurse specialist or Physician Yard Brakeman who is working directly with them, had [...] routine PICC care) HOME HEALTH CARE AGENCY: [facility]. [address] [place] [address] START OF CARE: within 24-48 hours of discharge Questions: Disciplines Requested: Nursing Recurring Lab Work Interval Expires CBC (with Diff) [[id number] Custom] Once a week until 01/03/2024 01/03/2024 Process Instructions: Scheduling Instructions: Comments: To be Drawn on Thursday. Please fax orders to [facility] ID at [phone]. Questions: Comprehensive metabolic panel (non-fasting) [[id number] Custom] Once a week until 01/03/2024 01/03/2024 Process Instructions: Scheduling Instructions: Comments: To be Drawn on Thursday. Please fax orders to [facility] ID at [phone]. Questions: CRP, acute inflammation [[id number] Custom] Once a week until 01/03/2024 01/03/2024 Process Instructions: Scheduling Instructions: Comments: To be Drawn on Thursday. Please fax orders to [facility] ID at [phone]. Questions: Discharge References/Attachments None documented in this [...] for 6 weeks Your Inpatient Doctor(s) at [facility]: Paola Carrington and [...] spent >30 minutes (Day of Discharge Code 35502) involved in the final examination of the [...] minimumof two midnights or is on the [facility] inpatient only procedure list (status C) [...] 10/28/2023 9:50 PM) Result Value WORKSTATION ID [id number] Impression Focal heterogeneous organizing collection at the [...] have questions please contact the health rn coronary care unit that requested your imaging first. Abdomen 1 view (Generic) (Exam End: 11/01/2023 10:14 PM) Result Value WORKSTATION ID [id number] Impression 1. Rectal distention with stool. 2. No evidence of obstruction. 3. Bony demineralization, LEFT hip dysplasia, Mcnair rods, severe scoliosis Thank you for letting us participate in the care of this patient. If you are a health care provider and have any questions regarding this report, please contact the number below. For patients who have questions please contact the health rn coronary care unit that requested your imaging first. Electronically signed by: Marisela Estrella MD, [facility] ([phone]), at 11/02/2023 8:47 AM ECG: No results [...] and washout with complex plastics closure at [facility] in [place] on 02/11, after which she was treated [...] which she should likely transition back to intermediate project manager suppression with TMP-SMX. Recommendations: - Stop daptomycin - Continue IV ceftriaxone 2g daily for a total of 6 weeks, ending on 12/11/2023 - After finishing above, should transition back to usp suppression with TMP-SMX - Cleared from ID perspective for PICC placement - Check CBC w/ diff, CMP, and CRP weekly to monitor for clinical progression and antimicrobial toxicity - We will arrange ID follow-up appointment prior to completion of IV ceftriaxone I spent a total of 50 minutes on the [id number]-im-[id number] encounter, chart review, documentation, and coordination of [...] 10/28/2023 9:50 PM) Result Value WORKSTATION ID [id number] Impression Focal heterogeneous organizing collection at the [...] have questions please contact the health rn coronary care unit that requested your imaging first. : No [...] 10/28/2023 9:50 PM) Result Value WORKSTATION ID [id number] Impression Focal heterogeneous organizing collection at the [...] have questions please contact the health rn coronary care unit that requested your imaging first. : No [...] check follow up in 4 weeks ordered, train operations supervisor updated. Willis Calero DO, MBA Interventional Radiology 10/31/2023 [id number] * Dimple Jimenez RN - 10/30/2023 3:33 PM EDT Called report to EUNICE Kevin at [phone] * Dimple Jimenez RN - 10/30/2023 3:04 PM EDT [facility] NUR[facility] DATAB[facility] Name: Tana Cavazos Date of : 1995 AGE: 28 y.o. [address]: [address] [place] [address] (home) [phone] (work) Mobile: Telephone Information: Referring Provider: None [...] [Transparent Dressings] Itching and Dermatitis Please use [id number] Cyclobenzaprine Other Reaction(s): Not available Doxycycline Other [...] minimumof two midnights or is on the [facility] inpatient only procedure list (status C) [...] 10/28/2023 9:50 PM) Result Value WORKSTATION ID [id number] Impression Focal heterogeneous organizing collection at the [...] have questions please contact the health rn coronary care unit that requested your imaging first. : No results found for: DIAGLINE, QTCCALC * Kristina Rodriguez RN - 10/30/2023 9:26 AM EDT IR for drain placement today for a paraspinal fluid collection; then ID will need to be consulted for results and to decide on OPAT They have requested referrals to: [address] or Note routed to a Finance Assistant who will communicate referrals to facilities and [...] minimumof two midnights or is on the [facility] inpatient only procedure list (status C) [...] 10/28/2023 9:50 PM) Result Value WORKSTATION ID [id number] Impression Focal heterogeneous organizing collection at the [...] have questions please contact the health rn coronary care unit that requested your imaging first. : No [...] Procedure Request: Interventional Radiology Service contacted by [facility] medicine at 12:15 PM regarding the [...] (bilateral); Reconstruc Hip Socket, Resec Fem Head (22415) (08/15/2010); Apply Of Hip Casts, Two Legs (20738) (08/15/2010); Removal Deep Implant (26107) (08/15/2010); Osteotomy Femur Shaft/Supracondy (21414) (2010); Remove Spinal Canal Catheter (09090) (N/A, 05/11/2014); Remove Infusn Device/Pump (57871) (N/A, 05/11/2014); I&D, Post Spine, Lumb/Sacr/Lumbosac (71639) (N/A, 05/20/2014); Repr, Dural/Csf Leak, Not Req Laminectomy (81048) (N/A, 05/20/2014); I&D, Post Spine, Lumb/Sacr/Lumbosac (01710) (N/A, 05/26/2014); Impact Tooth Remov Comp Bony (D7240) (N/A, 06/14/2018); Rem Imp Tooth W Mucoper Flp (D7210) (N/A, 06/14/2018); IR All Drainage Procedures (06/25/2022); IR Drain Check/Change/Remove (07/01/2022); IR All Drainage Procedures (07/04/2022); IR All Drainage Procedures (07/24/2022); IR Drain Check/Change/Remove (08/11/2022); IR Drain Check/Change/Remove (08/25/2022); IR Drain Check/Change/Remove (09/10/2022); IR All Drainage Procedures (09/26/2022); and Colonoscopy, Biopsy (43782) (N/A, 08/05/2023). Medications: Current Outpatient Medications Medication [...] Interventional & Diagnostic Radiology IR Team Pager: [phone] Personal Pager [phone] 10/29/2023 * Sharron Winters MD - 10/29/2023 [...] inflammatory markers. Tana was then brought to [facility], where she has [...] All Drainage Procedures 06/25/2022 Mich Martino MD [facility] INTERVENTIONL RAD IR ALL DRAINAGE PROCEDURES 07/04/2022 IR All Drainage Procedures 07/04/2022 Mich Martino MD [facility] INTERVENTIONL RAD IR ALL DRAINAGE PROCEDURES 07/24/2022 IR All Drainage Procedures 07/24/2022 Anurag Kumar MD [facility] INTERVENTIONL RAD IR ALL DRAINAGE PROCEDURES 09/26/2022 IR All Drainage Procedures 09/26/2022 Jamaal Jenkins, DO [facility] INTERVENTIONL RAD IR DRAIN CHECK/CHANGE/REMOVE 07/01/2022 IR Drain Check/Change/Remove 07/01/2022 Jamaal Jenkins, DO [facility] INTERVENTIONL RAD IR DRAIN CHECK/CHANGE/REMOVE 08/11/2022 IR Drain Check/Change/Remove 08/11/2022 Piter Self MD [facility] INTERVENTIONL RAD IR DRAIN CHECK/CHANGE/REMOVE 08/25/2022 IR Drain Check/Change/Remove 08/25/2022 Jamaal Jenkins, DO [facility] INTERVENTIONL RAD IR DRAIN CHECK/CHANGE/REMOVE 09/10/2022 IR Drain Check/Change/Remove 09/10/2022 Mich Martino MD [facility] INTERVENTIONL RAD PRO APPLY OF HIP CASTS, TWO LEGS 08/15/2010 CAST APPLICATION, HIP SPICA, BOTH LEGS performed by BARRERA OLIVER at [facility] MAIN OR PRO COLONOSCOPY, BIOPSY N/A 08/05/2023 COLONOSCOPY FLEXIBLE, WITH BX (WRVU 3.56) performed by Jamar Gastelum MD at [facility] ENDOSCOPY PRO I&D, POST SPINE, LUMB/SACR/LUMBOSAC N/A 05/20/2014 @I & D, OPEN, DEEP ABSCESS, LUMBAR, SACRAL, LUMBOSACRAL performed by Freddy Isbell MD at [facility] MAIN OR PRO I&D, POST SPINE, LUMB/SACR/LUMBOSAC N/A 05/26/2014 @I & D, OPEN, DEEP ABSCESS, LUMBAR, SACRAL, LUMBOSACRAL performed by Freddy Isbell MD at [facility] MAIN OR PRO IMPACT TOOTH REMOV COMP BONY N/A 06/14/2018 SURGICAL EXTRACTIONS, REMOVAL OF IMPACTED TOOTH, COMPLETELY BONY (WRVU 1.93) performed by Keith Cotton MD at [facility] OSC PRO OSTEOTOMY FEMUR SHAFT/SUPRACONDY 08/15/2010 ??OSTEOTOMY, FEMUR SHAFT OR SUPRACONDYLAR W/O FIXATION performed by BARRERA OLIVER at [facility] MAIN OR PRO RECONSTRUC HIP SOCKET, RESEC FEM HEAD 08/15/2010 ??ACETABULOPLASTY (GIRDLESTONE), RESECTION FEMORAL HEAD, BILATERAL performed by BARRERA OLIVER [facility] MAIN OR PRO REMOVAL DEEP IMPLANT 08/15/2010 REMOVAL IMPLANT, DEEP, BRUNO performed by BARRERA OLIVER at [facility] MAIN OR PRO REMOVAL ERUPTED TOOTH WITH ELEVATION OF MUCOPERIOSTEAL FLAP N/A 06/14/2018 SURGICAL EXTRACTIONS REQUIRING ELEVATION OF MUCOPERIOSTEAL FLAP AND REMOVAL OF BONE OR SECTION OF TOOTH (WRVU 1.09) performed by Keith Cotton MD at [facility] OSC PRO REMOVE INFUSN DEVICE/PUMP N/A 05/11/2014 REMOVAL OF SPINE INFUSION PUMP performed by Jamaal Samuel MD at [facility] MAIN OR PRO REMOVE SPINAL CANAL CATHETER N/A 05/11/2014 REMOVAL OF INTRATHECAL OR EPIDURAL CATHETER performed by Jamaal Samuel MD at [facility] MAIN OR PRO REPR, DURAL/CSF LEAK, NOT REQ LAMINECTOMY N/A 05/20/2014 @REPAIR DURAL\CSF LEAK,NOT REQUIRING LAMINECTOMY performed by Freddy Isbell MD at [facility] MAIN OR Prior To Admission Medications: (Not in a hospital admission) Allergies: Allergies Allergen Reactions Fluoxetine Other (See Comments) HIVES, HEART RACES Tegaderm [Transparent Dressings] Itching and Dermatitis Please use [id number] Cyclobenzaprine Other Reaction(s): Not available Doxycycline Other [...] Resource Strain: Low Risk (02/21/2023) Received from [employer] Overall Financial Resource Strain (CARDIA) Difficulty of Paying Living Expenses: Not very hard Food Insecurity: Unknown (02/21/2023) Received from [facility] Hunger Vital Sign Worried About Running Out of Food in the Last Year: Never true Ran Out of Food in the Last Year: Not on file Transportation Needs: No Transportation Needs (02/21/2023) Received from [employer] PRAPARE - Transportation Lack of Transportation (Medical): No Lack of Transportation (Non-Medical): No Physical Activity: Not on file Intimate Partner Violence: Unknown (02/21/2023) Received from [employer] Humiliation, Afraid, Rape, and Kick questionnaire Fear of Current or Ex-Partner: No Emotionally Abused: Not on file Physically Abused: Not on file Sexually Abused: Not on file Housing Stability: Unknown (02/21/2023) Received from [facility] Housing Stability Vital Sign Unable to Pay for Housing in the Last Year: Not on file Number of Places Lived in the Last Year: Not on file Unstable Housing in the Last Year: No Immunizations: Immunization History Administered Date(s) Administered Influenza (Novel B4L4-16) Injectable 02/25/2009 Influenza Trivalent w/Preservative 04/25/2011 Influenza [...] Regular diet DVT Prophylaxis: LMWH Anticipated Disposition: intermediate project manager care facility Code Status: Attempt Cardiopulmonary [...] to the planned procedure. Hand Hygiene: The buffer nickel did perform hand hygiene prior to line insertion. Catheter type: PICC Lot number: [id number] Procedure Technique: Skin was prepped with chlorhexidine. [...] outpatient blood draw. Patient was referred to [facility] by infectious disease [...] nursing note reviewed. Exam conducted with a aquatic habitat biologist present. HENT: Head: Normocephalic and atraumatic. Cardiovascular: [...] have questions please contact the health rn coronary care unit that requested your imaging first. Procedures Assessment [...] fluid collection treated as likely infections on intermediate project manager antibiotics currently Bactrim presenting with about 5 [...] surgery. Initially surgery believed to be at [facility]. Was on antibiotics until a month [...] from the [place] [address] [facility] Vascular Access Service Peripherally Inserted Central Catheter (PICC) Teaching Sheet Peripherally inserted central catheters (ocfe-de-zoni) (PICC) are used when you need IV [...] midline catheter? PICC lines are used for usp treatments. PICC lines may be used for [...] can be set up via the nurse Crisis Specialist to help you. What are possible complications [...] Vascular Access Device Selection, Insertion, and Management, [employer] 01/29. A Review of the Efficacy, Safety, Use, and Administration of [employer], [employer] 2005 * Plan of Care - Arielle Patino, EUNICE - 11/03/2023 3:34 AM EDT OUTCOME EVALUATION NOTE: OUTCOME SUMMARY: Pt tachy. MD alerted. Otherwise VSS on RA. Pt nonverbal. Unable to answer orientation questions. In Room Dining Server at bedside. 1x BM this shift. CARMELLA [...] infusion. Please page the PICC room at [phone] or call [phone] between the hours of 7:00am and 5:30pm Thursday-Thursday for PICC line placement/scheduling. After hours the Vascular Access Service can be reached at anytime on pager [phone] PICCrequests for the following day. [...] Home Health Services: Registered Nurse Agency Referrals: [facility] [address] [place] [id number] [place] [address] or Transportation: family or friend will provide Plan going forward: Care Management will continue to follow and assist with discharge planning and coordination of care as indicated. Anticipated Date of Discharge: 11/06/2023 Kristina Rodriguez PIE CHEF athletic director [phone] * Plan of Care - Arielle Patino RN - 11/02/2023 5:29 AM EDT OUTCOME EVALUATION NOTE: OUTCOME SUMMARY: Pt VSS on RA. Pt nonverbal. Unable to answer orientation questions. Moans and frowns when in pain. Pain medication given per JUN. In Room Dining Server at bedside. 1x BM this shift. CARMELLA [...] - Initial Consultation ID: Tana Cavazos Room: [address] [place] [address] Consulting Service: Hospital Medicine Consulting Attending: Rebel Carrington MD Admission Date: 10/28/2023 Reason for Consult: Recurrent spinal infection HPI: Tana Cavazos is a 28 y.o. female with Hx of cerebral palsy w/ spastic quadriplegia, non-verbal at baseline, as well as prior posterolateral spinal fusion in 2008 and bilateral Girdlestones in 2010, who was admitted to [facility] in May 2022 [...] site, for which she was readmitted to [facility] on 07/22 to manage this issue. On arrival to [facility], she was afebrile [...] evaluated by spine surgery multiple times at [facility] and was not deemeda candidate for operative intervention. Then, she was seen at [facility] for a second surgical opinion. On 08/27/2022, superficialCxs there revealed growth of Staph hemolyticus and capitis. She was initially continued on doxycycline for this but subsequently switched to TMP-SMX in early September 2022 given ?possible allergic reaction. She also did undergo re-insertion of IR drains on 09/26, with Cxs again returning negative. Eventually, she got a third surgical opinion at [facility] in [place] given the need for plastics closure of [...] continued to follow in ID clinic at [facility]. We discussed the [...] [Transparent Dressings] Itching and Dermatitis Please use [id number] Cyclobenzaprine Other Reaction(s): Not available Doxycycline Other [...] and washout with complex plastics closure at [facility] on 02/11, after which she was [...] a total of 80 minutes on the [id number] encounter, chart review, documentation, and coordination of [...] Appropriate) * Consult Note - Kelly Cummings, [facility] - 10/30/2023 4:10 PM [...] have. Alternately, during off-hours you may call [phone] to contact a pharmacist. [facility] Pharmacokinetics Note Drug: Vancomycin Pharmacokinetic target: AUC24 (range) 400-600 mg/L.hr Tana Cavazos is a(n) 28 years old female initiating Vancomycin for paraspinal infection, concern forosteo Recent measured serum creatinine values: 10/30/2023 04:48 0.33 mg/dL 10/29/2023 08:37 0.31 mg/dL 10/28/2023 21:00 0.25 mg/dL Assessment: Analysis using [employer] gives the following patient-specific pharmacokinetic parameters: CL: [...] or the wound care team at [phone] with skin and wound care concerns or [...] inflammatory markers. Tana was then brought to [facility], where she has [...] homeless or living in a retirement (including now)?: No In the past 12 months has the [employer], gas, oil, or water [employer] threatened to shut off services in your [...] Home Address confirmed as: [address] [facility] [address] Social & Family Supports: All names listed below confirmed with patient as current and correct Extended Emergency Contact Information Primary Emergency Contact: [place] [address] [facility] Mobile Relation: Guardianship Secondary Emergency Contact: Fernanda Sorensen Mobile Relation: Paid Caregiver Mother: Anderson Thorpe Address: [address] [address] [facility] Home Phone: [phone] Mobile Current Care Provided by: other (see [...] Insurance: N/A Prescription Coverage: Yes Preferred Pharmacy: [facility] Home Delivery - [facility] [address] [facility] [address] [facility] [address] [facility] [address] [address] Status: Patient is a : No Primary Care Provider confirmed: Lorna Bal, RECREATION PROGRAMMER [phone] Patient/Caregiver Goals of Treatment: Fannie anticipates pt to return home upon discharge. Potential Needs for Transition of Care: home health care Agency Referrals: I have met with the hr representative to: discuss discharge planning needs. provide the [facility], Office of Care Management letter from the Buggy Loader pertaining to rehab referrals. provide a letter describing our affiliations within the [facility] and educate about their right to choose where referrals are sent. provide a list of Home Health Agencies / Durable Medical Equipment vendors which serve their preferred geographic area. provided patient with [facility] Star Quality Rating handout. They have requested referrals to: [facility]. [address] [place] [address] Note routed to a Finance Assistant who will communicate referrals to facilities and [...] care as indicated. Alicja Franklin RN, BSN, ACM-HEATER FURNACErehabilitation caseworker Office of Care Management Pager: [phone] * Consult Note - Zach Pierre [facility] - 10/29/2023 3:01 AM EDT Tele[facility] Home Medication List Update for Medication Reconciliation 10/29/23 3:01 AM Tana Cavazos 1995 Allergies Allergen Reactions Fluoxetine Other (See Comments) HIVES, HEART RACES Tegaderm [Transparent Dressings] Itching and Dermatitis Please use [id number] Cyclobenzaprine Other Reaction(s): Not available Doxycycline Other (See Comments) Cough, rash Penicillins Person Interviewed: [facility] Quality of Interview/accuracy of medication list: excellent Sources used to compile medication list: [] Epic medication list [] SureScripts/Dispense Report [] PCP/Specialist list [x] Retail pharmacy [] Patient list [] MAR [] Other Changes made to home medication list: Additions: Bisacodyl prn Deletions: Nystatin, Probiotic, Vitamin, Psyllium Changes: None Additional Notes: [facility] Medication List Recommended changes: None The home medication list is now updated to the best of my knowledge and is ready to be reconciled by the provider. Please contact the TelePhaacy Medication Reconciliation Pharmacist at for any questions. Zach Pierre [facility] * Consult Note - [...] fevers and chills History of Present Illness: aTna Cavazos is a 28 y.o. female with [...] the patient underwent a revision surgery in [place], [place] that involved removal of a R [...] All Drainage Procedures 06/25/2022 Mich Martino MD [facility] INTERVENTIONL RAD IR ALL DRAINAGE PROCEDURES 07/04/2022 IR All Drainage Procedures 07/04/2022 Mich Martino MD [facility] INTERVENTIONL RAD IR ALL DRAINAGE PROCEDURES 07/24/2022 IR All Drainage Procedures 07/24/2022 Anurag Kumar MD [facility] INTERVENTIONL RAD IR ALL DRAINAGE PROCEDURES 09/26/2022 IR All Drainage Procedures 09/26/2022 Jamaal Jenkins, DO [facility] INTERVENTIONL RAD IR DRAIN CHECK/CHANGE/REMOVE 07/01/2022 IR Drain Check/Change/Remove 07/01/2022 Jamaal Jenkins, DO [facility] INTERVENTIONL RAD IR DRAIN CHECK/CHANGE/REMOVE 08/11/2022 IR Drain Check/Change/Remove 08/11/2022 Piter Self MD [facility] INTERVENTIONL RAD IR DRAIN CHECK/CHANGE/REMOVE 08/25/2022 IR Drain Check/Change/Remove 08/25/2022 Jamaal Jenkins, DO [facility] INTERVENTIONL RAD IR DRAIN CHECK/CHANGE/REMOVE 09/10/2022 IR Drain Check/Change/Remove 09/10/2022 Mich Martino MD [facility] INTERVENTIONL RAD PRO APPLY OF HIP CASTS, TWO LEGS 08/15/2010 CAST APPLICATION, HIP SPICA, BOTH LEGS performed by BARRERA OLIVER at [facility] MAIN OR PRO COLONOSCOPY, BIOPSY N/A 08/05/2023 COLONOSCOPY FLEXIBLE, WITH BX (WRVU 3.56) performed by Jamar Gastelum MD at [facility] ENDOSCOPY PRO I&D, POST SPINE, LUMB/SACR/LUMBOSAC N/A 05/20/2014 @I & D, OPEN, DEEP ABSCESS, LUMBAR, SACRAL, LUMBOSACRAL performed by Freddy Isbell MD at [facility] MAIN OR PRO I&D, POST SPINE, LUMB/SACR/LUMBOSAC N/A 05/26/2014 @I & D, OPEN, DEEP ABSCESS, LUMBAR, SACRAL, LUMBOSACRAL performed by Freddy Isbell MD at [facility] MAIN OR PRO IMPACT TOOTH REMOV COMP BONY N/A 06/14/2018 SURGICAL EXTRACTIONS, REMOVAL OF IMPACTED TOOTH, COMPLETELY BONY (WRVU 1.93) performed by Keith Cotton MD at [facility] OSC PRO OSTEOTOMY FEMUR SHAFT/SUPRACONDY 08/15/2010 ??OSTEOTOMY, FEMUR SHAFT OR SUPRACONDYLAR W/O FIXATION performed by BARRERA OLIVER at [facility] MAIN OR [facility] RECONSTRUC HIP SOCKET, RESEC FEM HEAD 08/15/2010 ??ACETABULOPLASTY (GIRDLESTONE), RESECTION FEMORAL HEAD, BILATERAL performed by BARRERA OLIVER [facility] MAIN OR PRO REMOVAL DEEP IMPLANT 08/15/2010 REMOVAL IMPLANT, DEEP, BRUNO performed by BARRERA OLIVER at [facility] MAIN OR PRO REMOVAL ERUPTED TOOTH WITH ELEVATION OF MUCOPERIOSTEAL FLAP N/A 06/14/2018 SURGICAL EXTRACTIONS REQUIRING ELEVATION OF MUCOPERIOSTEAL FLAP AND REMOVAL OF BONE OR SECTION OF TOOTH (WRVU 1.09) performed by Keith Cotton MD at [facility] OSC PRO REMOVE INFUSN DEVICE/PUMP N/A 05/11/2014 REMOVAL OF SPINE INFUSION PUMP performed by Jamaal Samuel MD at [facility] MAIN OR PRO REMOVE SPINAL CANAL CATHETER N/A 05/11/2014 REMOVAL OF INTRATHECAL OR EPIDURAL CATHETER performed by Jamaal Samuel MD at [facility] MAIN OR PRO REPR, DURAL/CSF LEAK, NOT REQ LAMINECTOMY N/A 05/20/2014 @REPAIR DURAL\CSF LEAK,NOT REQUIRING LAMINECTOMY performed by Freddy Isbell MD at [facility] MAIN OR Home Medications: (Not in a hospital admission) Allergies: Allergies Allergen Reactions Fluoxetine Other (See Comments) HIVES, HEART RACES Tegaderm [Transparent Dressings] Itching and Dermatitis Please use [id number] Cyclobenzaprine Other Reaction(s): Not available Doxycycline Other [...] course. James Swanson IV, DO Orthopaedic Surgery, [id number] ADDENDUM: Case reviewed with Dr. Galvan. Plan [...] she had I+D with hardware exchange at [facility] last year. She [...] PM EST Office [place] [address] [facility] [place] [address] Scheduled Orders Name Type Priority Associated Diagnoses [...] the entire procedure. ?? Andrade Melvin MD [facility] IR ORDERABLES * Place PICC Line: Contact Vascular Access Page [phone] Extremity to exclude: No restrictions; Is PICC [...] to the planned procedure. Hand Hygiene: The buffer nickel did perform hand hygiene prior to line insertion. Catheter type: PICC Lot number: [id number] Procedure Technique: Skin was prepped with chlorhexidine. [...] Guidance (IV Team) (11/03/2023 11:19 AM EDT) [employer] WORKSTATION ID [id number] RAD Anatomical Region Laterality Modality N/A Radio [...] have questions please contact the health rn coronary care unit that requested your imaging first. ? Narrative [...] who have questions please contactthe health rn coronary care unit that requested your imaging first. Wally Roesn MD IMG FLUORO ORDERABLE S * Differential, Automated (11/02/2023 5:26 AM EDT) Neutrophil % 69.0 % [facility] Neutrophil Absolute 5.16 1.70 - 6.10 x10(3)/[facility] Lymph % 21.7 % [facility] Lymphocytes Abs 1.6 0.9 - 3.2 x10(3)/[facility] Monocyte % 6.8 % [facility] Monocyte Abs 0.5 0.3 - 0.9 x10(3)/[facility] Eos % 1.6 % [facility] Eosinophils Abs 0.1 0.0 - 0.4 x10(3)/[facility] Basophil % 0.5 % [facility] Baso Absolute 0.0 0.0 - 0.1 x10(3)/[facility] Immature Gran % 0.40 % [facility] Comment: Immature granulocytes(IG's)percentage and absolute count will include metamyelocytes, myelocytes, and promyelocytes. Blood smears from CBCs yielding IG's will be scanned manually for concordance. If this scan disagrees with the automated IG or if promyelocytes are noted, a manual differential will be performed. Immature Gran Absolute 0.03 0.00 - 0.04 x10(3)/[facility] Blood 11/02/2023 5:26 AM EDT 11/02/2023 5:43 AM EDT Narrative Resulting Agency Comment Spec In Lab Wally Rosen MD HEMATOLOGY ORDERABLE S [facility] [place] [address] * (ABNORMAL) Hemogram (11/02/2023 5:26 AM EDT) White Blood Cell 7.5 4.0 - 9.5 x10(3)/mc L [facility] Red Blood Cell 3.89(L) 4.00 - 5.21 x10(6)/mc L [facility] Hemoglobin 11.1(L) 11.7 - 15.5 g/dL [facility] Hematocrit 33.8(L) 35.7 - 45.8 % [facility] Mean Cell Volume 86.9 82.6 - 94.4 fL [facility] Mean Cell Hemoglobin 28.5 27.1 - 32.0 pg [facility] Mean Cell Hemoglobin Concentration 32.8 31.7 - 35.0 g/dL [facility] Platelet 477(H) 145 - 357 x10(3)/mc L [facility] RDW Standard Deviation 45.1 37.0 - 46.0 fL [facility] RDW coefficient of variation 14.3(H) 11.5 - 14.1 % [facility] Mean Platelet Volume 9.1 7.6 - 12.9 fL [facility] NRBC% auto 0.0 % [facility] NRBC Absolute 0.000 0.000 - 0.000 x10(3)/mc L [facility] Blood 11/02/2023 5:26 AM EDT 11/02/2023 5:43 AM EDT Narrative Resulting Agency Comment Spec In Lab Wally Rosen MD HEMATOLOGY ORDERABLE S Performing Organization Address [facility] Co de Phone Number [facility] [place] [address] * CK (11/02/2023 5:26 AM EDT) Creatine Kinase 14 0 - 160 unit/L [facility] Blood 11/02/2023 5:26 AM EDT 11/02/2023 5:44 AM EDT Narrative Resulting Agency Comment Spec In Lab Wally Rosen MD CHEMISTRY ORDERABLES Performing Organization Address [facility] de Phone Number [facility] [place] [address] * (ABNORMAL) Comprehensive metabolic panel (non-fasting) (11/02/2023 5:26 AM EDT) Glucose 109 65 - 199 mg/dL [facility] Comment:Diabetes: >=200 mg/d L plus symptoms Blood Urea Nitrogen 13 8 - 18 mg/dL [facility] - 107 mmol/L [facility] Carbon Dioxide 21(L) 22 - 31 mmol/L [facility] Anion Gap 13 5 - 15 mmol/L [facility] Calcium 9.8 8.5 - 10.5 mg/dL [facility] Protein, Total 7.2 6.1 - 8.0 g/dL [facility] Albumin 3.5 3.2 - 5.2 g/dL [facility] Aspartate Aminotransferase 13 0 - 30 unit/L [facility] Alanine Aminotransferase 27 0 - 30 unit/L [facility] Alkaline Phosphatase 209(H) 35 - 105 unit/L [facility] Bilirubin, Total <0.2(L) 0.2 - 1.3 mg/dL [facility] Est Glomerular Filtration Rate 150 >=60 mL/min/1. 73 m?? [facility] [...] Rosen MD CHEMISTRY ORDERABLES Performing Organization Address [facility]/ZIP Co de Phone Number [facility] [place] [address] * (ABNORMAL) CRP, acute inflammation (11/02/2023 5:26 AM EDT) Pathologist [facility] C-Reactive Protein 62.8(H) <=4.9 mg/L [facility] Blood 11/02/2023 5:26 AM EDT 11/02/2023 5:44 AM EDT Narrative Resulting Agency Comment Spec In Lab Wally Rosen MD CHEMISTRY ORDERABLES Performing Organization Address [facility] Co de Phone Number [facility] [place] [address] * XR Abdomen 1 view (Generic) (11/01/2023 10:14 PM EDT) [facility] WORKSTATION ID [id number] [facility] Anatomical Region Laterality Modality Abdomen N/A Digital [...] have questions please contact the health rn coronary care unit that requested your imaging first. ? Narrative [...] who have questions please contactthe health rn coronary care unit that requested your imaging first. Electronically signed by: Marisela Estrella MD, [facility]([phone]), at 11/02/2023 8:47 AM Mindy Da Silva APRN IMG DX ORDERABLES * MRSA PCR Screen ([facility]/CGP/APD/NLH) (10/31/2023 6:10 PM EDT) [facility] MRSA PCR Negative Negative [facility] MRSA (Interp) Methicillin-resist ant Staphylococcus aureus (MRSA) is NOT DETECTED The MRSA target DNA sequences (mec and SCC) were not detected within the acceptable ranges using the Xpert MRSA NxG on the GeneXpert Dx System ([employer]). This suggests the absence of MRSA in the patient specimen submitted for testing. This test is cleared by the U.S. Food and Drug Administration for clinical use and its performance characteristics have been verified by the [facility] at [facility]. This result does not rule [...] Rosen MD MOLECULAR ORDERABLES Performing Organization Address City/State/[facility] Co de Phone Number [facility] [place] [address] * Differential, Automated (10/31/2023 4:47 AM EDT) [facility] Neutrophil % 56.2 % [facility] Neutrophil Absolute 2.93 1.70 - 6.10 x10(3)/[facility] Lymph % 32.1 % [facility] Lymphocytes Abs 1.7 0.9 - 3.2 x10(3)/[facility] Monocyte % 9.0 % [facility] Monocyte Abs 0.5 0.3 - 0.9 x10(3)/[facility] Eos % 1.7 % [facility] Eosinophils Abs 0.1 0.0 - 0.4 x10(3)/[facility] Basophil % 0.8 % [facility] Baso Absolute 0.0 0.0 - 0.1 x10(3)/[facility] Immature Gran % 0.20 % [facility] Comment: Immature granulocytes(IG's)percentage and absolute count will include metamyelocytes, myelocytes, and promyelocytes. Blood smears from CBCs yielding IG's will be scanned manually for concordance. If this scan disagrees with the automated IG or if promyelocytes are noted, a manual differential will be performed. Immature Gran Absolute 0.01 0.00 - 0.04 x10(3)/[facility] Blood 10/31/2023 4:47 AM EDT 10/31/2023 4:55 AM EDT Narrative Resulting Agency Comment Spec In Lab Sharron Winters MD HEMATOLOGY ORDERABLE S Performing Organization Address City/State/[facility] Co de Phone Number [facility] [place] [address] * (ABNORMAL) Hemogram (10/31/2023 4:47 AM EDT) White Blood Cell 5.2 4.0 - 9.5 x10(3)/ L [facility] Red Blood Cell 3.89(L) 4.00 - 5.21 x10(6)/ L [facility] Hemoglobin 11.1(L) 11.7 - 15.5 g/dL [facility] Hematocrit 33.8(L) 35.7 - 45.8 % [facility] Mean Cell Volume 86.9 82.6 - 94.4 fL [facility] Mean Cell Hemoglobin 28.5 27.1 - 32.0 pg [facility] Mean Cell Hemoglobin Concentration 32.8 31.7 - 35.0 g/dL [facility] Platelet 488(H) 145 - 357 x10(3)/ L [facility] RDW Standard Deviation 45.6 37.0 - 46.0 fL [facility] RDW coefficient of variation 14.3(H) 11.5 - 14.1 % [facility] Mean Platelet Volume 9.0 7.6 - 12.9 fL [facility] NRBC% auto 0.0 % [facility] NRBC Absolute 0.000 0.000 - 0.000 x10(3)/mc L [facility] Blood 10/31/2023 4:47 AM EDT 10/31/2023 4:55 AM EDT Narrative Resulting Agency Comment Spec In Lab Sharron Winters MD HEMATOLOGY ORDERABLE S Performing Organization Address City/[facility]/ZIP Co de Phone Number [facility] [address] * (ABNORMAL) CRP, acute inflammation (10/31/2023 4:47 AM EDT) C-Reactive Protein 99.2(H) <=4.9 mg/L [facility] Blood 10/31/2023 4:47 AM EDT 10/31/2023 4:55 AM EDT Narrative Resulting Agency Comment Spec In Lab Sharron Winters MD CHEMISTRY ORDERABLES Performing Organization Address City/[facility]/ZIP Co de Phone Number [facility] [place] [address] * (ABNORMAL) Basic Metabolic Panel (non-fasting) (10/31/2023 4:47 AM EDT) Glucose 120 65 - 199 mg/dL [facility] Comment:Diabetes: >=200 mg/d L plus symptoms Blood Urea Nitrogen 8 8 - 18 mg/dL [facility] - 107 mmol/L [facility] Carbon Dioxide 23 22 - 31 mmol/L [facility] Anion Gap 11 5 - 15 mmol/L [facility] Calcium 9.2 8.5 - 10.5 mg/dL [facility] Est Glomerular Filtration Rate 150 >=60 mL/min/1. 73 m?? [facility] [...] Winters MD CHEMISTRY ORDERABLES Performing Organization Address City/State/[facility] Co de Phone Number [facility] [place] [address] * (ABNORMAL) Sedimentation rate (10/31/2023 4:47 AM EDT) Sedimentation Rate Automated 113(H) 2 - 37 mm/hr [facility] [...] Lab Sharron Winters MD HEMATOLOGY ORDERABLE S [facility] [place] [address] * Magnesium (10/31/2023 4:47 AM EDT) Magnesium 0.86 0.69 - 1.07 mmol/L [facility] Blood 10/31/2023 4:47 AM EDT 10/31/2023 4:55 AM EDT Narrative Resulting Agency Comment Spec In Lab Sharron Winters MD CHEMISTRY ORDERABLES Performing Organization Address [facility] Co de Phone Number [facility] [place] [address] * IR All Drainage Procedures (10/30/2023 3:23 [...] performed this procedure. ? Sharron Winters MD [facility] IR ORDERABLES * Anaerobic Culture (10/30/2023 3:02 PM EDT) Anaerobic Culture No anaerobic organisms isolated [facility] Fluid 10/30/2023 3:02 PM EDT 10/30/2023 3:47 PM EDT Comment:Infected seroma/absc ess lower mid posterior presacral region. Fluid culture. Narrative Resulting Agency Comment Spec In Lab Andrade Melvin MD MICROBIOLOGY - GENER AL ORDERABLES [facility] [place] [address] * Body Fluid Culture, Aerobic (10/30/2023 3:02 PM EDT) [facility] Body Fluid Culture Rare mixed bacterial morphotypes suggestive of normal cutaneous zenon [facility] Gram Stain Many Neutrophils seen No microorganisms seen. [facility] Fluid 10/30/2023 3:02 PM EDT 10/30/2023 3:47 PM EDT Comment:Infected seroma/absc ess lower mid posterior presacral region. Fluid culture. Narrative Resulting Agency Comment Spec In Lab Andrade Melvin MD MICROBIOLOGY - GENER AL ORDERABLES [facility] [place] [address] * CK (10/30/2023 4:48 AM EDT) [facility] Creatine Kinase 29 0 - 160 unit/L [facility] Blood Venous Draw / Unknown 10/30/2023 4:48 AM EDT 10/30/2023 5:06 AM EDT Narrative Resulting Agency Comment Spec In Lab Hollie SIMMS CHEMISTRY ORDERABLES [facility] [place] [address] * Differential, Automated (10/30/2023 4:48 AM EDT) Pathologist [facility] Neutrophil % 67.0 % [facility] Neutrophil Absolute 4.61 1.70 - 6.10 x10(3)/[facility] Lymph % 22.3 % [facility] Lymphocytes Abs 1.5 0.9 - 3.2 x10(3)/[facility] Monocyte % 8.2 % [facility] Monocyte Abs 0.6 0.3 - 0.9 x10(3)/[facility] Eos % 1.6 % [facility] Eosinophils Abs 0.1 0.0 - 0.4 x10(3)/[facility] Basophil % 0.6 % [facility] Baso Absolute 0.0 0.0 - 0.1 x10(3)/[facility] Immature Gran % 0.30 % [facility] Comment: Immature granulocytes(IG's)percentage and absolute count will include metamyelocytes, myelocytes, and promyelocytes. Blood smears from CBCs yielding IG's will be scanned manually for concordance. If this scan disagrees with the automated IG or if promyelocytes are noted, a manual differential will be performed. Immature Gran Absolute 0.02 0.00 - 0.04 x10(3)/[facility] Blood 10/30/2023 4:48 AM EDT 10/30/2023 5:01 AM EDT Narrative Resulting Agency Comment Spec In Lab Sharron Winters MD HEMATOLOGY ORDERABLE S [facility] [place] [address] * (ABNORMAL) Hemogram (10/30/2023 4:48 AM EDT) White Blood Cell 6.9 4.0 - 9.5 x10(3)/mc L [facility] Red Blood Cell 3.97(L) 4.00 - 5.21 x10(6)/mc L [facility] Hemoglobin 11.3(L) 11.7 - 15.5 g/dL [facility] Hematocrit 34.8(L) 35.7 - 45.8 % [facility] Mean Cell Volume 87.7 82.6 - 94.4 fL [facility] Mean Cell Hemoglobin 28.5 27.1 - 32.0 pg [facility] Mean Cell Hemoglobin Concentration 32.5 31.7 - 35.0 g/dL [facility] Platelet 432(H) 145 - 357 x10(3)/mc L [facility] RDW Standard Deviation 45.6 37.0 - 46.0 [facility] RDW coefficient of variation 14.3(H) 11.5 - 14.1 % [facility] Mean Platelet Volume 9.3 7.6 - 12.9 [facility] NRBC% auto 0.0 % [facility] NRBC Absolute 0.000 0.000 - 0.000 x10(3)/mc L [facility] Blood 10/30/2023 4:48 AM EDT 10/30/2023 5:01 AM EDT Narrative Resulting Agency Comment Spec In Lab Sharron Winters MD HEMATOLOGY ORDERABLE S Performing Organization Address City/[facility]/ZIP Co de Phone Number [facility] [place] [address] * (ABNORMAL) CRP, acute inflammation (10/30/2023 4:48 AM EDT) C-Reactive Protein 120.3(H) <=4.9 mg/L [facility] Comment:result rechecked-KS Blood 10/30/2023 4:48 AM EDT 10/30/2023 5:01 AM EDT Narrative Resulting Agency Comment Spec In Lab Sharron Winters MD CHEMISTRY ORDERABLES Performing Organization Address City/[facility]/ZIP Co de Phone Number [facility] [place] [address] * (ABNORMAL) Basic Metabolic Panel (non-fasting) (10/30/2023 4:48 AM EDT) Glucose 113 65 - 199 mg/dL [facility] Comment:Diabetes: >=200 mg/d L plus symptoms Blood Urea Nitrogen 7(L) 8 - 18 mg/dL [facility] Creatinine 0.33(L) 0.70 - 1.20 mg/dL [facility] Sodium 136 135 - 145 mmol/L [facility] Potassium 4.1 3.5 - 5.0 mmol/L [facility] Comment: Please note: ??Patients with WBC >100,000 may have falsely elevated Potassium levels. ??For accurate Potassium quantification in these patients send serum separator tube (gold top) for subsequent determinations. ??Contact the Clinical Chemistry Laboratory if there are any questions. Chloride 102 98 - 107 mmol/L [facility] Carbon Dioxide 23 22 - 31 mmol/L [facility] Anion Gap 11 5 - 15 mmol/L [facility] Calcium 9.3 8.5 - 10.5 mg/dL [facility] Est Glomerular Filtration Rate 143 >=60 mL/min/1. 73 m?? [facility] [...] MD CHEMISTRY ORDERABLES [facility] [place] [address] * (ABNORMAL) Sedimentation rate (10/30/2023 4:48 AM EDT) Sedimentation Rate Automated 103(H) 2 - 37 mm/hr [facility] Comment: Effective April 06, 2019 new capillary photometric technology has resulted in a change in reference ranges. It is recommended that each ESR result be reviewed with its own age appropriate reference range. Blood 10/30/2023 4:48 AM EDT 10/30/2023 5:01 AM EDT Narrative Resulting Agency Comment Spec In Lab Sharron Winters MD HEMATOLOGY ORDERABLE S [facility] [place] [address] * Magnesium (10/30/2023 4:48 AM EDT) Pathologist [facility] Magnesium 0.89 0.69 - 1.07 mmol/L [facility] Blood 10/30/2023 4:48 AM EDT 10/30/2023 5:01 AM EDT Narrative Resulting Agency Comment Spec In Lab Sharron Winters MD CHEMISTRY ORDERABLES Performing Organization Address City/[facility] Co de Phone Number [facility] [place] [address] * POCT urine (10/29/2023 10:26 AM EDT) [facility] POC Urine HCG Negative POC Control Internal Controls Acceptable 10/29/2023 10:2 6 AM EDT Sharron Winters MD POINT OF CARE TEST O RDERABLES * (ABNORMAL) Differential, Automated (10/29/2023 8:37 AM EDT) Neutrophil % 74.9 % [facility] Neutrophil Absolute 6.45(H) 1.70 - 6.10 x10(3)/mc L [facility] Lymph % 16.8 % [facility] Lymphocytes Abs 1.4 0.9 - 3.2 x10(3)/mc L [facility] Monocyte % 6.1 % [facility] Monocyte Abs 0.5 0.3 - 0.9 x10(3)/mc L [facility] Eos % 1.3 % [facility] Eosinophils Abs 0.1 0.0 - 0.4 x10(3)/ L [facility] Basophil % 0.6 % [facility] Baso Absolute 0.0 0.0 - 0.1 x10(3)/ L [facility] Immature Gran % 0.30 % [facility] Comment: Immature granulocytes(IG's)percentage and absolute count will include metamyelocytes, myelocytes, and promyelocytes. Blood smears from CBCs yielding IG's will be scanned manually for concordance. If this scan disagrees with the automated IG or if promyelocytes are noted, a manual differential will be performed. Immature Gran Absolute 0.03 0.00 - 0.04 x10(3)/ L [facility] Blood 10/29/2023 8:37 AM EDT 10/29/2023 8:47 AM EDT Narrative Resulting Agency Comment Spec In Lab Brennan Maldonado MD HEMATOLOGY ORDERABL ES [facility] [place] [address] * (ABNORMAL) Hemogram (10/29/2023 8:37 AM EDT) White Blood Cell 8.6 4.0 - 9.5 x10(3)/mc L [facility] Red Blood Cell 3.98(L) 4.00 - 5.21 x10(6)/mc L [facility] Hemoglobin 11.2(L) 11.7 - 15.5 g/dL [facility] Hematocrit 33.8(L) 35.7 - 45.8 % [facility] Mean Cell Volume 84.9 82.6 - 94.4 fL [facility] Mean Cell Hemoglobin 28.1 27.1 - 32.0 pg [facility] Mean Cell Hemoglobin Concentration 33.1 31.7 - 35.0 g/dL [facility] Platelet 477(H) 145 - 357 x10(3)/ L [facility] RDW Standard Deviation 44.0 37.0 - 46.0 fL [facility] RDW coefficient of variation 14.1 11.5 - 14.1 % [facility] Mean Platelet Volume 9.3 7.6 - 12.9 fL [facility] NRBC% auto 0.0 % [facility] NRBC Absolute 0.000 0.000 - 0.000 x10(3)/mc L [facility] Blood 10/29/2023 8:37 AM EDT 10/29/2023 8:47 AM EDT Narrative Resulting Agency Comment Spec In Lab Brennan Maldonado MD HEMATOLOGY ORDERABL ES Performing Organization Address [facility]/ZIP Co de Phone Number [facility] [place] [address] * Lactate, whole blood, send to lab ([facility] (10/29/2023 8:37 AM EDT) Lactate WB 1.8 0.5 - 2.2 mmol/L [facility] Blood 10/29/2023 8:37 AM EDT 10/29/2023 8:47 AM EDT Narrative Resulting Agency Comment Spec In Lab Brennan Maldonado MD CHEMISTRY ORDERABLE S Performing Organization Address City/[facility]/ZIP Co de Phone Number [facility] [address] * Phosphorus (10/29/2023 8:37 AM EDT) Phosphorus 3.6 2.5 - 4.5 mg/dL [facility] Blood 10/29/2023 8:37 AM EDT 10/29/2023 8:47 AM EDT Narrative Resulting Agency Comment Spec In Lab Brennan Maldonado MD CHEMISTRY ORDERABLE S [facility] [place] [address] * Magnesium (10/29/2023 8:37 AM EDT) Magnesium 0.94 0.69 - 1.07 mmol/L [facility] Blood 10/29/2023 8:37 AM EDT 10/29/2023 8:47 AM EDT Narrative Resulting Agency Comment Spec In Lab Brennan Maldonado MD CHEMISTRY ORDERABLE S [facility] [place] [address] * (ABNORMAL) Basic Metabolic Panel (non-fasting) (10/29/2023 8:37 AM EDT) Glucose 96 65 - 199 mg/dL [facility] Comment:Diabetes: >=200 mg/d L plus symptoms Blood Urea Nitrogen 6(L) 8 - 18 mg/dL [facility] Creatinine 0.31(L) 0.70 - 1.20 mg/dL [facility] Sodium 140 135 - 145 mmol/L [facility] Potassium 4.2 3.5 - 5.0 mmol/L [facility] Comment: Please note: ??Patients with WBC >100,000 may have falsely elevated Potassium levels. ??For accurate Potassium quantification in these patients send serum separator tube (gold top) for subsequent determinations. ??Contact the Clinical Chemistry Laboratory if there are any questions. Chloride 103 98 - 107 mmol/L [facility] Carbon Dioxide 26 22 - 31 mmol/L [facility] Anion Gap 11 5 - 15 mmol/L [facility] Calcium 9.4 8.5 - 10.5 mg/dL [facility] Est Glomerular Filtration Rate 145 >=60 mL/min/1. 73 m?? [facility] [...] MD CHEMISTRY ORDERABLE S Performing Organization Address [facility] Co de Phone Number [facility] [place] [address] * (ABNORMAL) Urinalysis Microscopic Exam (10/29/2023 2:33 AM EDT) RBC, Urine >100(H) 0 - 4 /HPF [facility] WBC, Urine 4 0 - 5 /HPF [facility] Squamous Epithelial Cells Raw Data, Urine 4 <=4 /HPF [facility] Hyaline Casts, Urine <1 0 - 2 /LPF [facility] Comment: Interpret results with caution, microscopic results are from suboptimal specimen volume Straight Catheter Urine 10/29/2023 2:33 AM EDT 10/29/2023 2:43 AM EDT Narrative Resulting Agency Comment Spec In Lab Sharron Winters MD URINE ORDERABLES Performing Organization Address [facility]/ZIP Co de Phone Number [facility] [place] [address] * (ABNORMAL) Urinalysis with reflex Culture (10/29/2023 2:33 AM EDT) Glucose, Urine Dipstick Negative Negative mg/dL [facility] Protein, Urine Dipstick 30(A) Negative mg/dL [facility] Bilirubin, Urine Dipstick Negative Negative mg/dL [facility] Comment: Clinical correlation required for positive Urine Bilirubin results as false positive may occur with some drugs and drug related products. If a false positive is suspected a serum total bilirubin should be considered if clinically indicated. Urobilinogen, Urine Dipstick Normal Normal mg/dL [facility] pH, Urn (dipstick) 6.5 5.0 - 8.0 [facility] Blood, Urine Dipstick Large(A) Negative mg/dL [facility] Ketone, Urine Dipstick Negative Negative mg/dL [facility] Nitrite, Urine Dipstick Negative Negative [facility] Leukocytes, Urine Dipstick Negative Negative [facility] Appearance, Urine Dipstick Clear Clear [facility] Specific [place] Urine Automated >=1.030(A) 1.005 - 1.030 [facility] Color, Urine Dipstick Yellow Yellow [facility] Reflex to Culture No [facility] Straight Catheter Urine 10/29/2023 2:33 AM EDT 10/29/2023 2:43 AM EDT Narrative Resulting Agency Comment Spec In Lab Sharron Winters MD URINE ORDERABLES Performing Organization Address City/[facility]/ZIP Co de Phone Number [facility] [address] * (ABNORMAL) CRP, acute inflammation (10/29/2023 2:08 AM EDT) C-Reactive Protein 133.4(H) <=4.9 mg/L [facility] Blood 10/29/2023 2:08 AM EDT 10/29/2023 2:33 AM EDT Narrative Resulting Agency Comment Spec In Lab Sharron Winters MD CHEMISTRY ORDERABLES Performing Organization Address City/[facility]/ZIP Co de Phone Number [facility] [place] [address] * Phosphorus (10/29/2023 2:08 AM EDT) Phosphorus 3.1 2.5 - 4.5 mg/dL [facility] Blood 10/29/2023 2:08 AM EDT 10/29/2023 2:33 AM EDT Narrative Resulting Agency Comment Spec In Lab Sharron Winters MD CHEMISTRY ORDERABLES Performing Organization Address City/[facility] Co de Phone Number [facility] [place] [address] * (ABNORMAL) Sedimentation rate (10/29/2023 2:08 AM EDT) [facility] Sedimentation Rate Automated >119(H) 2 - 37 mm/hr [facility] [...] MD HEMATOLOGY ORDERABLE S Performing Organization Address [facility] Co de Phone Number [facility] [place] [address] * Magnesium (10/29/2023 2:08 AM EDT) Magnesium 0.85 0.69 - 1.07 mmol/L [facility] Blood 10/29/2023 2:08 AM EDT 10/29/2023 2:33 AM EDT Narrative Resulting Agency Comment Spec In Lab Sharron Winters MD CHEMISTRY ORDERABLES Performing Organization Address [facility] Co de Phone Number [facility] [place] [address] * CT Lumbar Spine w Contrast (10/28/2023 9:50 PM EDT) WORKSTATION ID [id number] RAD Anatomical Region Laterality Modality L-spine Computed [...] have questions please contact the health rn coronary care unit that requested your imaging first. ? Narrative [...] who have questions please contactthe health rn coronary care unit that requested your imaging first. Siomara Hernandez MD [facility] CT ORDERABLES * Differential, Automated (10/28/2023 9:00 PM EDT) Neutrophil % 66.3 % [facility] Neutrophil Absolute 5.75 1.70 - 6.10 x10(3)/[facility] Lymph % 24.1 % [facility] Lymphocytes Abs 2.1 0.9 - 3.2 x10(3)/[facility] Monocyte % 7.2 % [facility] Monocyte Abs 0.6 0.3 - 0.9 x10(3)/[facility] Eos % 1.4 % [facility] Eosinophils Abs 0.1 0.0 - 0.4 x10(3)/[facility] Basophil % 0.5 % [facility] Baso Absolute 0.0 0.0 - 0.1 x10(3)/[facility] Immature Gran % 0.50 % [facility] Comment: Immature granulocytes(IG's)percentage and absolute count will include metamyelocytes, myelocytes, and promyelocytes. Blood smears from CBCs yielding IG's will be scanned manually for concordance. If this scan disagrees with the automated IG or if promyelocytes are noted, a manual differential will be performed. Immature Gran Absolute 0.04 0.00 - 0.04 x10(3)/[facility] Blood 10/28/2023 9:00 PM EDT 10/28/2023 9:17 PM EDT Narrative Resulting Agency Comment Spec In Lab Esteban King RECREATION PROGRAMMER HEMATOLOGY ORDERABLE S [facility] [place] [address] * (ABNORMAL) Hemogram (10/28/2023 9:00 PM EDT) White Blood Cell 8.7 4.0 - 9.5 x10(3)/ L [facility] Red Blood Cell 4.28 4.00 - 5.21 x10(6)/mc L [facility] Hemoglobin 11.9 11.7 - 15.5 g/dL [facility] Hematocrit 36.5 35.7 - 45.8 % [facility] Mean Cell Volume 85.3 82.6 - 94.4 fL [facility] Mean Cell Hemoglobin 27.8 27.1 - 32.0 pg [facility] Mean Cell Hemoglobin Concentration 32.6 31.7 - 35.0 g/dL [facility] Platelet 525(H) 145 - 357 x10(3)/[facility] RDW Standard Deviation 43.8 37.0 - 46.0 [facility] RDW coefficient of variation 14.2(H) 11.5 - 14.1 % [facility] Mean Platelet Volume 9.2 7.6 - 12.9 fL [facility] NRBC% auto 0.0 % [facility] NRBC Absolute 0.000 0.000 - 0.000 x10(3)/ L [facility] Blood 10/28/2023 9:00 PM EDT 10/28/2023 9:17 PM EDT Narrative Resulting Agency Comment Spec In Lab Esteban King APRN HEMATOLOGY ORDERABLE S [facility] [place] [address] * (ABNORMAL) CRP, acute inflammation (10/28/2023 9:00 PM EDT) Pathologist [facility] C-Reactive Protein 148.3(H) <=4.9 mg/L [facility] Blood 10/28/2023 9:00 PM EDT 10/28/2023 9:17 PM EDT Narrative Resulting Agency Comment Spec In Lab Esteban King APRN CHEMISTRY ORDERABLES Performing Organization Address [facility] Co de Phone Number [facility] [place] [address] * (ABNORMAL) Sedimentation rate (10/28/2023 9:00 PM EDT) Pathologist [facility] Sedimentation Rate Automated >119(H) 2 - 37 mm/hr [facility] Comment: Effective April 06, 2019 new capillary photometric technology has resulted in a change in reference ranges. It is recommended that each ESR result be reviewed with its own age appropriate reference range. Blood 10/28/2023 9:00 PM EDT 10/28/2023 9:17 PM EDT Narrative Resulting Agency Comment Spec In Lab Esteban Levycoa RECREATION PROGRAMMER HEMATOLOGY ORDERABLE S Performing Organization Address [facility] de Phone Number [facility] [place] [address] * (ABNORMAL) Basic Metabolic Panel (non-fasting) (10/28/2023 9:00 PM EDT) [facility] Glucose 88 65 - 199 mg/dL [facility] Comment:Diabetes: >=200 mg/d L plus symptoms Blood Urea Nitrogen 7(L) 8 - 18 mg/dL [facility] Creatinine 0.25(L) 0.70 - 1.20 mg/dL [facility] Sodium 137 135 - 145 mmol/L [facility] Potassium Not Perf 3.5 - 5.0 [facility] Comment: Unable to quantitate [...] questions. Chloride 102 98 - 107 mmol/L [facility] Carbon Dioxide 25 22 - 31 mmol/L [facility] Anion Gap 10 5 - 15 mmol/L [facility] Calcium 9.4 8.5 - 10.5 mg/dL [facility] Est Glomerular Filtration Rate 153 >=60 mL/min/1. 73 m?? [facility] [...] In Lab Esteban King APRN CHEMISTRY ORDERABLES [facility] [place] [address] documented in this encounter Visit Diagnoses Diagnosis [...] Arielle Contreras RN)[id number] (Stopped - Provider: Arielle oCntreras RN) enoxaparin (Lovenox) (40 mg/0.4 mL) subcutaneous [...] ordered. documented in this encounter Care Teams Stores Naval Relationship Specialty Start Date End Date Lorna Bal, [place] [address] [place] [address] PCP - General Family Medicine 05/27/18 documented as of this encounter
--- OUTSIDE RECORDS SUMMARY | 2024-01-05 18:21 | XMS_ITS | Encounter Summary ---
Author Organization [facility] [place] [address] Care Team Providers Care Hospice Liaison Name Role Phone Lorna Bal APRN Primary Care Provider [phone] Encounter Details Date Type Department Care Team [...] PM EST Office Visit Infectious Disease at [facility] [place] [id number] Hollie Ambriz MD [facility] [address] [place] [address] documented as of this encounter Visit Diagnoses Not on filedocumented in this encounter Care Teams Hospice Liaison Relationship Specialty Start Date End Date Lorna Bal APRN [address] [place] [id number] PCP - General Family Medicine 05/27/18 documented as of this encounter
--- OUTSIDE RECORDS SUMMARY | 2024-01-05 18:21 | XMS_ITS | Encounter Summary ---
Author Organization [facility] Address [facility] [place] [address] Care Team Providers Care Hotel Services Supervisor Name Role Phone Lorna Bal APRN Primary Care Provider [phone] Encounter Details Date Type Department Care Team (Late st Contact Info) Description 10/28/2023 Telephone [place] [address] Neva Thorpe, RN Social History Tobacco Use Types Packs/Day Years Used Date Smoking Tobacco: Never Passive Smoke Exposure: Never Smokeless Tobacco: Never Comments:NO SMOKERS IN THE H OME Alcohol Use Standard Drinks/Week Comments No 0 (1 standard drink = 0.6 oz pur e alcohol) [facility] Utilities Answer Date Recorded In the past 12 months has e [employer], gas, oil, or water [employer] threatened to shut off services in [...] PM EST Office [place] [address] Hollie Ambriz MD [facility] [place] [address] documented as of this encounter Visit Diagnoses Not on filedocumented in this encounter Care Teams Hotel Services Supervisor Relationship Specialty Start Date End Date Lorna Bal APRN [address] [place] [address] PCP - General Family Medicine 05/27/18 documented as of this encounter
--- OUTSIDE RECORDS SUMMARY | 2024-01-05 18:21 | XMS_ITS | Encounter Summary ---
Author Organization [facility] Address [facility] [place] [address] Care Team Providers Care Pipe Fitter Apprentice Name Role Phone Lorna Bal APRN Primary Care Provider +1 -[phone] Encounter Details Date Type Department Care Team (Latest Contact Info) Description 12/03/2023 Travel Social History Tobacco Use Types Packs/Day Years Used Date Smoking Tobacco: Never Passive Smoke Exposure: Never Smokeless Tobacco: Never Comments:NO SMOKERS IN THE H OME Alcohol Use Standard Drinks/Week Comments No 0 (1 standard drink = 0.6 oz pur e alcohol) [facility] Utilities Answer Date Recorded In the past 12 months has e [employer], gas, oil, or water [employer] threatened to shut off services in your [...] PM EST Office Visit [place] [address] Hollie Ambriz MD [facility] [address] [place] [address] documented as of this encounter Visit Diagnoses Not on filedocumented in this encounter Care Teams Pipe Fitter Apprentice Relationship Specialty Start Date End Date Lorna Bal APRN [address] [place] [address] PCP - General Family Medicine 05/27/18 documented as of this encounter
--- OUTSIDE RECORDS SUMMARY | 2024-01-05 18:21 | XMS_ITS | Encounter Summary ---
[facility] Organization [facility] Address [facility] [place] [address] Care Team Providers Care License Clerk Name Role Phone Lorna Bal APRN Primary Care Provider +1 [phone] Encounter Details Date Type Department Care Team (Late st Contact Info) Description 10/28/2023 Telephone [place] [address] Neva Thorpe, RN Social History Tobacco Use Types Packs/Day Years Used Date Smoking Tobacco: Never Passive Smoke Exposure: Never Smokeless Tobacco: Never Comments:NO SMOKERS IN THE H OME Alcohol Use Standard Drinks/Week Comments No 0 (1 standard drink = 0.6 oz pur e alcohol) [facility] Utilities Answer Date Recorded In the past 12 months has e [employer], gas, oil, or water [employer] threatened to shut off services in your [...] in the past 12 [address] [facility], were you homeless or living in [...] PM EST Office [place] [address] Hollie Ambriz MD [facility] [place] [address] documented as of this encounter Visit Diagnoses Not on filedocumented in this encounter Care Teams License Clerk Relationship Specialty Start Date End Date Lorna Bal APRN [address] [place] [address] PCP - General Family Medicine 05/27/18 documented as of this encounter
--- OUTSIDE RECORDS SUMMARY | 2024-01-05 18:21 | XMS_ITS | Encounter Summary ---
[place] [address] Care Team Providers Care Tree Thinner Name Role Phone Lorna Bal APRN Primary Care Provider +1 [phone] Reason for Referral * Occupational Therapy (Routine) - Closed Specialty Diagnoses / Procedures Referred By Contmonica t Referred To Contact Occupational Therapy Diagnoses Chronic pain of right thumb Lucho Foster MD [facility] [place] [address] [facility] [place] [address] Referral ID Status Reason Start Date Expiration Date V isits Requested Visits Authorized [id number] Closed Consult Only 09/29/2023 09/28/2024 30 30 * Physical Therapy (Routine) - Authorized Specialty Diagnoses / Procedures Referred By Contac t Referred To Contact Physical Therapy Diagnoses Chronic pain of right thumb Lucho Foster MD [facility] [place] [address] Referral ID Status Reason Start Date Expiration Date Visits Requested Visits Authorized [id number] Authorized Evaluate and Treat 09/29/2023 03/27/2024 12 12 Reason for Visit * Reason Comments Establish Care CONTRACTURE OF R VIKAS MB NO KNOWN INJURY Hx OF RELEASE DOS: ([facility]) CRISTELA * Consultation (Routine) - Authorized Specialty Diagnoses / Procedures Referred By Contac t Referred To Contact Orthopaedics Diagnoses Contracture of joint of hand, 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 Lorna Bal APRN [address] [place] [address] [facility] [address] [place] [phone] Referral ID Status Reason Start Date Expiration Date Visits Requested Visits Authorized [id number] Authorized Consult, Test & Treat PCP Updated and/or Approved 08/03/2023 08/02/2024 6 6 Encounter Details Date Type Department Care Team (Latest Contact Info) Description 09/29/2023 10:30 AM EDT Office [place] [address] Chuckie Mayfield MD [facility] DR [place] [address] Chronic pain of right thumb; 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 Social History Tobacco Use Types Packs/Day Years Used Date Smoking Tobacco: Never Passive Smoke Exposure: Never Smokeless Tobacco: Never Tobacco Cessation:Counseling Given: Not Answered Comments:NO SMOKERS IN THE HOME Alcohol Use Standard Drinks/Week Comments No 0 (1 standard drink = 0.6 oz pur e alcohol) [facility] Inpatient Questions Answer Date Recorded Does [...] NO KNOWN INJURY Hx OF RELEASE DOS: ([facility]) CRISTELA Date of injury: N/A [...] [Transparent Dressings] Itching and Dermatitis Please use [id number] Cyclobenzaprine Other Reaction(s): Not available Doxycycline Other (See Comments) Cough, rash Penicillins Social history: Social History Tobacco Use Smoking status: Never Passive exposure: Never Smokeless tobacco: Never Tobacco comments: NO SMOKERS IN THE HOME Substance Use Topics Alcohol use: No Occupation: disabled Questionnaire Responses: 03/18/2019 [facility] Surgical Postop Visit PROMIS-10 General Health Very [...] PM EST Office [place] [address] Hollie Ambriz MD [facility] DR [place] [address] Scheduled Referrals Name Type Priority Associated Diagnoses [...] unspecified documented in this encounter Care Teams Tree Thinner Relationship Specialty Start Date End Date Lorna Bal, HOME HEALTH OCCUPATIONAL THERAPIST [address] [place] [address] PCP - General Family Medicine 05/27/18 documented as of this encounter
--- OUTSIDE RECORDS SUMMARY | 2024-01-05 18:21 | XMS_ITS | Encounter Summary ---
Author Organization [facility] Address [facility] [address] Care Team Providers Care Small Boat Engineer Name Role Phone Lorna Bal APRN Primary Care Provider [phone] [phone] Encounter Details Date Type Department Care Team (Late st Contact Info) Description 09/28/2023 Orders Only [place] [address] Hollie Ambriz MD [facility] INFECTI[place] [address] [facility] 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; Spinal abscess; Acute [...] PM EST Office [place] [address] Hollie Ambriz MD [facility] DR INFECTI[place] [address] documented as of this encounter Visit Diagnoses 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
--- OUTSIDE RECORDS SUMMARY | 2024-01-05 18:21 | XMS_ITS | Encounter Summary ---
Author Organization [facility] Address [facility] [place] [address] Care Team Providers Care Manager Marketing Sales Name Role Phone Lorna Bal APRN Primary Care Provider [phone] [phone] Encounter Details Date Type Department Care Team (Late st Contact Info) Description 11/25/2023 2:00 PM EDT TH Visit (TeleHealth) [place] [phone] Lilli Joy APRN [facility] [place] [address] Osteomyelitis, unspecified site, unspecified type; Hardware complicating wound infection, subsequent encounter; [facility]P 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 Social History Tobacco Use Types Packs/Day Years Used Date Smoking Tobacco: Never Passive Smoke Exposure: Never Smokeless Tobacco: Never Comments:NO SMOKERS IN THE H OME Alcohol Use Standard Drinks/Week Comments No 0 (1 standard drink = 0.6 oz pur e alcohol) [facility] Utilities Answer Date Recorded In the [...] her ID Attending, Dr. Ambriz: ...admitted to [facility] in May 2022 [...] drain site, for which shewas readmitted to [facility] on 07/22 to manage this issue. On arrival to [facility], she was afebrile [...] evaluated by spine surgery multiple times at [facility] and was not deemed a candidate for operative intervention. Then, she was seen at [facility] for a second surgical opinion. On 08/27/2022, superficialCxs there revealed growth of Staph hemolyticus and capitis. She was initially continued on doxycycline for this but subsequently switched to TMP-[id number] in early September 2022 given ?possible allergic reaction. She also did undergo re-insertion of IR drains on 09/26, with Cxs again returning negative. Eventually, she got a third surgical opinion at [facility] in [place] given the need for plastics closure of [...] [Transparent Dressings] Itching and Dermatitis Please use [id number] Cyclobenzaprine Other Reaction(s): Not available Doxycycline Other [...] visit needs to be scheduled - ID jewelry internship notified Patient's ID Attending, Dr. Ambriz, aware of above I spent a total of 30 minutes with the patient, including my review of medical records prior to thevisit, [id number] evaluation and counseling, clinical decision making, coordination of care and documentation. 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
--- OUTSIDE RECORDS SUMMARY | 2024-01-05 18:21 | XMS_ITS | Encounter Summary ---
Author Organization [facility] Address [facility] [place] [address] Care Team Providers Care Bobbin Dumper Name Role Phone Lorna Bal APRN Primary Care Provider [phone] [phone] Reason for Visit * Reason Comments Medication Refill Encounter Details Date Type Department Care Team (Late st Contact Info) Description 09/10/2023 Refill [place] [address] Hollie Ambriz MD [facility] [place] [address] Social History Tobacco Use Types Packs/Day Years [...] PM EST Office [place] [address] Hollie Ambriz MD [facility] DR [place] [address] documented as of this encounter Visit Diagnoses Not on filedocumented in this encounter Care Teams Bobbin Dumper Relationship Specialty Start Date End Date Lorna Bal APRN [address] [place] [address] PCP - General Family Medicine 05/27/18 documented as of this encounter
--- OUTSIDE RECORDS SUMMARY | 2024-01-05 18:21 | XMS_ITS | Encounter Summary ---
Author Organization [facility] Address [facility] [place] [address] Care Team Providers Care Coordinator Integrated Marketing Name Role Phone Lorna Bal APRN Primary Care Provider [phone] -[phone] Encounter Details Date Type Department Care Team (Late st Contact Info) Description 11/09/2023 Telephone [place] [address] Yas Tracy, RN Social History Tobacco Use Types Packs/Day Years Used Date Smoking Tobacco: Never Passive Smoke Exposure: Never Smokeless Tobacco: Never Comments:NO SMOKERS IN THE H OME Alcohol Use Standard Drinks/Week Comments No 0 (1 standard drink = 0.6 oz pur e alcohol) [facility] Utilities Answer Date Recorded In the past 12 months has e electric, gas, oil, or water [employer] threatened to shut off services in your [...] PM EST Office [place] [address] Hollie Ambriz MD [facility] [place] [address] documented as of this encounter Visit Diagnoses Not on filedocumented in this encounter Care Teams Coordinator Integrated Marketing Relationship Specialty Start Date End Date Lorna Bal APRN [address] [place] [address] PCP - General Family Medicine 05/27/18 documented as of this encounter
--- OUTSIDE RECORDS SUMMARY | 2024-01-05 18:21 | XMS_ITS | Encounter Summary ---
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 Followed up with in [place]. MRI was not possible sec. To hardware. CRP/ESR was trending upwards. NSG referred her to [facility] for surgery. The patient went [...] liquefied hematoma or abscess. Neurosurgeon recommended continuing senior care suppressive antibiotics Subjective: [place] is in [place] [...] Tipton MD Infectious Diseases Fellow- [id number] Pager: [phone] 09/23/2023 11:03 AM Plan discussed with Dr. Hollie Ambriz This note was created using [employer] voice recognition software. * Hollie Ambriz MD [...] PM EST Office Visit [place] [address] Hollie Ambriz MD [facility] [place] [address] documented as of this encounter Procedures Procedure Name Priority Date/Time Associated Diagnosis Comments CRP, ACUTE INFLAMMATION Routine 09/24/2023 11:03 AM EDT Spinal abscess COMPREHENSIVE METABOLIC PANEL Routine 09/24/2023 11:03 AM EDT Spinal abscess documented in this encounter Results * (ABNORMAL) Comprehensive metabolic panel (non-fasting) (09/24/2023 11:03 AM EDT) Glucose 98 65 - 199 mg/dL [facility] Comment:Diabetes: >=200 mg/d L plus symptoms Blood Urea Nitrogen 16 8 - 18 mg/dL [facility] Creatinine 0.27(L) 0.70 - 1.20 mg/dL [facility] Sodium 138 135 - 145 mmol/L [facility] Potassium 3.7 3.5 - 5.0 mmol/L [facility] Comment: Please note: ??Patients with WBC >100,000 may have falsely elevated Potassium levels. ??For accurate Potassium quantification in these patients send serum separator tube (gold top) for subsequent determinations. ??Contact the Clinical Chemistry Laboratory if there are any questions. Chloride 100 98 - 107 mmol/L [facility] Carbon Dioxide 23 22 - 31 mmol/L [facility] Anion Gap 15 5 - 15 mmol/L [facility] Calcium 10.3 8.5 - 10.5 mg/dL [facility] Protein, Total 8.4(H) 6.1 - 8.0 g/dL [facility] Albumin 4.6 3.2 - 5.2 g/dL [facility] Aspartate Aminotransferase 23 0 - 30 unit/L [facility] Alanine Aminotransferase 49(H) 0 - 30 unit/L [facility] Alkaline Phosphatase 302(H) 35 - 105 unit/L [facility] Bilirubin, Total 0.3 0.2 - 1.3 mg/dL [facility] [...] Tipton MD CHEMISTRY ORDERABLES Performing Organization Address City/[facility]/ZIP Co de Phone Number [facility] [place] [address] * (ABNORMAL) CRP, acute inflammation (09/24/2023 11:03 AM EDT) C-Reactive Protein 42.3(H) <=4.9 mg/L [facility] Blood 09/24/2023 11:0 3 AM EDT 09/24/2023 11:10 AM EDT Narrative Resulting Agency Comment Spec In Lab Ronn Tipton MD CHEMISTRY ORDERABLES [facility] [place] [place] [address] documented in this encounter Visit Diagnoses Diagnosis Spinal abscess Acute osteomyelitis, other specified site longterm 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 Encounter for long-term (current) use of antibiotics documented in this encounter Care Teams Old Testament Professor Relationship Specialty Start Date End Date Lorna Bal APRN [address] [place] [address] PCP - General Family Medicine 05/27/18 documented as of this encounter
--- OUTSIDE RECORDS SUMMARY | 2024-01-05 18:21 | XMS_ITS | Encounter Summary ---
[place] [address] Care Team Providers Care Firearms Assembly Supervisor Name Role Phone Lorna Bal APRN Primary Care Provider +1 -[phone] Encounter Details Date Type Department Care Team [...] Visit [place] [address] Hollie Ambriz MD [facility] [place] [address] documented as of this encounter Visit Diagnoses Not on filedocumented in this encounter Care Teams Firearms Assembly Supervisor Relationship Specialty Start Date End Date Lorna Bal APRN [address] [place] [address] PCP - General Family Medicine 05/27/18 documented as of this encounter
--- OUTSIDE RECORDS SUMMARY | 2024-01-05 18:22 | XMS_ITS | Encounter Summary ---
Author Organization [facility] [place] [address] Care Team Providers Care Event Marketing Representative Name Role Phone Lorna Bal APRN Primary Care Provider +1 [phone] Encounter Details Date Type Department Care Team (Late st Contact Info) Description 06/16/2023 Telephone [place] [address] Martha Kennedy Social History Tobacco Use Types [...] PM EST Office [place] [address] Hollie Ambriz MD [facility] [place] [address] documented as of this encounter Visit Diagnoses Not on filedocumented in this encounter Care Teams Event Marketing Representative Relationship Specialty Start Date End Date Lorna Bal APRN [address] [place] [address] PCP - General Family Medicine 05/27/18 documented as of this encounter
--- OUTSIDE RECORDS SUMMARY | 2024-01-05 18:22 | XMS_ITS | Encounter Summary ---
Author Organization [facility] [place] [address] Care Team Providers Care Boiling Tub Operator Name Role Phone Lorna Bal APRN Primary Care Provider +1 -[phone] Encounter Details Date Type Department Care Team (Late st Contact Info) Description 12/25/[address] [place] [address] Sirisha Patino Social History Tobacco Use Types Packs/Day Years Used Date Smoking Tobacco: Never Smokeless Tobacco: Never Comments:NO SMOKERS IN THE H OME Alcohol Use Standard Drinks/Week Comments No 0 (1 standard drink = 0.6 oz pur e alcohol) [facility] Inpatient Questions Answer Date Recorded Does Anyone [...] PM EST Office Visit [place] [address] Hollie Ambriz MD [facility] [place] [address] documented as of this encounter Visit Diagnoses Not on filedocumented in this encounter Care Teams Boiling Tub Operator Relationship Specialty Start Date End Date Lorna Bal, [place] [address] [place] [address] PCP - General Family Medicine 05/27/18 documented as of this encounter
--- OUTSIDE RECORDS SUMMARY | 2024-01-05 18:22 | XMS_ITS | Encounter Summary ---
Author Organization [facility] [place] [address] Care Team Providers Care Magnetic Tape Winder Name Role Phone Lorna Bal APRN Primary Care Provider +1 [phone] Reason for Referral * Diagnostic Test (Routine) - Closed Specialty Diagnoses / Procedures Referred By Contac t Referred To Contact Radiology Diagnoses Spinal abscess Procedures CT Lumbar Spine w Contrast Jamar Dasilva MD [facility] [place] [address] [facility] [place] [address] Referral ID Status Reason Start Date Expiration Date V isits Requested Visits Authorized [id number] Closed Specialty Service Requested 09/25/2022 03/27/2024 1 1 Reason for Visit * Diagnostic Test (Routine) - Closed Specialty Diagnoses / Procedures Referred By Contac t Referred To Contact Radiology Diagnoses Spinal abscess Procedures CT Lumbar Spine w Contrast Jamar Dasilva MD [facility] [place] [address] [facility] [place] [address] Referral ID Status Reason Start Date Expiration Date V isits Requested Visits Authorized [id number] Closed Specialty Service Requested 09/25/2022 03/27/2024 1 1 Encounter Details Date Type Department Care Team (Latest Contact Info) Description 09/26/2022 10:24 AM EDT - 09/26/2022 12:12 PM EDT Hospital Encounter [place] [address] Jamar Dasilva MD [facility] [place] [address] Spinal abscess Discharge Disposition: Home [...] at [facility] [place] [address] Hollie Ambriz MD [facility] [place] [address] documented as of this encounter Procedures Procedure [...] questions please contact the health foster care therapist that requested your imaging first. [...] have questions please contactthe health foster care therapist that requested your imaging first. Electronically signed by: Pantera Salazar MD, [facility]([phone]), at 09/26/2022 10:59 AM Jamar Dasilva MD [...] mLs documented in this encounter Care Teams Magnetic Tape Winder Relationship Specialty Start Date End Date Lorna Bal, [place] [address] [place] [address] PCP - General Family Medicine 05/27/18 documented as of this encounter
--- OUTSIDE RECORDS SUMMARY | 2024-01-05 18:22 | XMS_ITS | Encounter Summary ---
Author Organization [facility] [place] [address] Care Team Providers Care Security Clerk Name Role Phone Lorna Bal APRN Primary Care Provider +1 [phone] Encounter Details Date Type Department Care Team (Late st Contact Info) Description 06/12/2023 [place] [phone] Tobi Luna Social History Tobacco Use Types [...] PM EST Office [place] [address] Hollie Ambriz MD [facility] [place] [address] documented as of this encounter Visit Diagnoses Not on filedocumented in this encounter Care Teams Security Clerk Relationship Specialty Start Date End Date Lorna Bal APRN [address] [place] [address] PCP - General Family Medicine 05/27/18 documented as of this encounter
--- OUTSIDE RECORDS SUMMARY | 2024-01-05 18:22 | XMS_ITS | Encounter Summary ---
Author Organization [facility] [place] [address] Care Team Providers Care Coal Trimmer Name Role Phone Lorna Bal APRN Primary Care Provider +1 [phone] Encounter Details Date Type Department Care Team (Late st Contact Info) Description 10/27/2022 Telephone [place] [phone] Halima García Social History Tobacco Use Types [...] PM EST Office Visit [place] [address] Hollie Ambriz MD [facility] [place] [address] documented as of this encounter Visit Diagnoses Not on filedocumented in this encounter Care Teams Coal Trimmer Relationship Specialty Start Date End Date Lorna Bal APRN [address] [place] [address] PCP - General Family Medicine 05/27/18 documented as of this encounter
--- OUTSIDE RECORDS SUMMARY | 2024-01-05 18:22 | XMS_ITS | Encounter Summary ---
Author Organization [facility] Address [facility] [place] [address] Care Team Providers Care Flight Engineer Manager Name Role Phone Lorna Bal APRN Primary Care Provider +1 [phone] Reason for Visit * Consultation (Urgent) - Closed Specialty Diagnoses / Procedures Referred By Contmonica t Referred To Contact Infectious Diseases Diagnoses Osteomyelitis, unspecified site, unspecified type Spinal cord abscess Lorna Bal APRN [address] [place] [address] [facility] Infectious Dis [address] [place] [phone] Referral ID Status Reason Start Date Expiration Date V isits Requested Visits Authorized [id number] Closed Consult, Test & Treat PCP Updated and/or Approved 12/23/2022 12/23/2023 6 6 Encounter Details Date Type Department Care Team (Late st Contact Info) Description 01/29/2023 9:30 AM EDT Office [place] [address] George Tipton MD [facility] [place] [address] 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 Followed up with in [place]. MRI was not possible sec. To hardware. CRP/ESR was trending upwards. NSG referred her to [facility] for surgery and patient is scheduled for a procedure on 02/11/23. Patient presents to ID clinic to reestablish care in anticipation that she will need antibiotics after her surgery since she will have new hardware in setting of chronic infection. Patient is accompanied by 2 caregivers. According to the caregivers patient lives in a house in [place] with another roommate. They have been taking [...] All Drainage Procedures 06/25/2022 Mich Martino MD [facility] INTERVENTION[facility] RAD IR ALL DRAINAGE PROCEDURES 07/04/2022 IR All Drainage Procedures 07/04/2022 Mich Martino MD [facility] RAD IR ALL DRAINAGE PROCEDURES 07/24/2022 IR All Drainage Procedures 07/24/2022 Anurag Kumar MD [facility] RAD IR ALL DRAINAGE PROCEDURES 09/26/2022 IR All Drainage Procedures 09/26/2022 Jamaal Jenkins, DO [facility] RAD IR DRAIN CHECK/CHANGE/REMOVE 07/01/2022 IR Drain Check/Change/Remove 07/01/2022 Jamaal Jenkins, DO [facility] RAD IR DRAIN CHECK/CHANGE/REMOVE 08/11/2022 IR Drain Check/Change/Remove 08/11/2022 Piter Self MD [facility] RAD IR DRAIN CHECK/CHANGE/REMOVE 08/25/2022 IR Drain Check/Change/Remove 08/25/2022 Jamaal Jenkins, DO [facility] RAD IR DRAIN CHECK/CHANGE/REMOVE 09/10/2022 IR Drain Check/Change/Remove 09/10/2022 Mich Martino MD [facility] INTER[facility] RAD PRO APPLY OF HIP CASTS, TWO LEGS 08/15/2010 CAST APPLICATION, HIP SPICA, BOTH LEGS performed by BARRERA OLIVER at [facility] MAIN OR PRO I&D, POST SPINE, LUMB/SACR/LUMBOSAC N/A 05/20/2014 @I & D, OPEN, DEEP ABSCESS, LUMBAR, SACRAL, LUMBOSACRAL performed by Freddy Isbell MD at [facility] MAIN OR PRO I&D, POST SPINE, LUMB/SACR/LUMBOSAC N/A 05/26/2014 @I & D, OPEN, DEEP ABSCESS, LUMBAR, SACRAL, LUMBOSACRAL performed by Freddy Isbell MD at [facility] MAIN OR PRO IMPACT TOOTH REMOV COMP BONY N/A 06/14/2018 SURGICAL EXTRACTIONS, REMOVAL OF IMPACTED TOOTH, COMPLETELY BONY (WRVU 1.93) performed by Keith Cotton MD at [facility] OSC PRO OSTEOTOMY FEMUR SHAFT/SUPRACONDY 08/15/2010 ??OSTEOTOMY, FEMUR SHAFT OR SUPRACONDYLAR W/O FIXATION performed by BARRERA OLIVER at [facility] MAIN OR PRO RECONSTRUC HIP SOCKET, RESEC FEM HEAD 08/15/2010 ??ACETABULOPLASTY (GIRDLESTONE), RESECTION FEMORAL HEAD, BILATERAL performed by BARRERA OLIVER [facility] hospital MAIN OR PRO REMOVAL DEEP IMPLANT 08/15/2010 REMOVAL IMPLANT, DEEP, BRUNO performed by BARRERA OLIVER at [facility] MAIN OR PRO REMOVAL ERUPTED TOOTH WITH ELEVATION OF MUCOPERIOSTEAL FLAP N/A 06/14/2018 SURGICAL EXTRACTIONS REQUIRING ELEVATION OF MUCOPERIOSTEAL FLAP AND REMOVAL OF BONE OR SECTION OF TOOTH (WRVU 1.09) performed by Keith Cotton MD at [facility] OSC PRO REMOVE INFUSN DEVICE/PUMP N/A 05/11/2014 REMOVAL OF SPINE INFUSION PUMP performed by Jamaal Samuel MD at [facility] MAIN OR PRO REMOVE SPINAL CANAL CATHETER N/A 05/11/2014 REMOVAL OF INTRATHECAL OR EPIDURAL CATHETER performed by Jamaal Samuel MD at [facility] MAIN OR PRO REPR, DURAL/CSF LEAK, NOT REQ LAMINECTOMY N/A 05/20/2014 @REPAIR DURAL\CSF LEAK,NOT REQUIRING LAMINECTOMY performed by Freddy Isbell MD at [facility] MAIN OR Allergies: Allergies Allergen Reactions Fluoxetine Other (See Comments) HIVES, HEART RACES Tegaderm [Transparent Dressings] Itching and Dermatitis Please use [id number] Penicillins Immunization History: Immunization History Administered Date(s) Administered Influenza Vaccine (Novel) [id number], Injectable 02/25/2009 Influenza Vaccine w/Preservative, Split 04/25/2011 Influenza Vaccine, Whole 03/27/2009 Family History: Family History Problem Relation Age of Onset Cancer Maternal Grandmother Heart Disease Maternal Grandfather Social History: Hx of CP, lives in a long term with care givers. ROS: 14 point ROS [...] Patient is being evaluated by neurosurgery in [facility] and is scheduled to undergo revision lumbar interbody fusion. We are evaluating the patient in anticipation that she will need antibiotics postprocedure. After discussing with the caregivers we decided to hold Bactrim as it will increase the yield of intraoperative cultures. Once surgery is performed in [facility] patient will need ID follow-up inpatient and then her care can be transitioned over to our clinic since it is closer to [place]. At this time Bactrim will be held [...] Dr. Nikolay Tipton MD Infectious Diseases Fellow-PGY5 [facility] Pager: [phone] 01/28/2023 10:38 AM * Nikolay Toledo MD [...] later this month at a hospital in [place]. I actually think this poses a good [...] PM EST Office [place] [address] Nikolay Toledo MD [facility] [place] [address] documented as of this encounter Visit Diagnoses Diagnosis penitentiary 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 Encounter for long-term (current) use of antibiotics documented in this encounter Care Teams Flight Engineer Manager Relationship Specialty Start Date End Date Lorna Bal APRN [address] [place] [address] PCP - General Family Medicine 05/27/18 documented as of this encounter
--- OUTSIDE RECORDS SUMMARY | 2024-01-05 18:22 | XMS_ITS | Encounter Summary ---
Author Organization [facility] Address [facility] [place] [address] Care Team Providers Care Dance Teacher Name Role Phone Lorna Bal APRN Primary Care Provider [phone] [phone] Encounter Details Date Type Department Care Team (Latest Contact Info) Description 08/05/2023 9:03 AM EDT - 08/05/2023 11:39 AM EDT Hospital En[place] [address] Jamar Gastelum MD [facility] [place] [address] Discharge Disposition: Home Social History Tobacco Use [...] occurs, please contact your Doctor. Please call [phone] before 8pm Mon-Fri with problems, questions or concerns. If you call after 8pm or on weekends, call the Hospital at [phone] and ask to speak to the Social Worker Masters stone layer and the postage machine operator will contact that person for you. When should you call for help? Call [phone] anytime you think you may need emergency [...] any problems. Where can you learn more? [facility] View your After Visit Summary and more online at [email or web address] If you would like to provide feedback about your hospital experience, please call the Office of Patient and Family Relations at . If you have received this After Visit Summary in error, please immediately return it in person to the department, or notify the [facility] Privacy Office by calling toll free at between the hours of 8AM and 5PM to arrange for our retrieval of the documents at no cost to you. Content Version: 12.2 ?? [phone] [employer]athered[employer]. Care instructions adapted under license by [facility]. If you have questions about a medical condition or this instruction, always ask your healthcare professional. [employer] disclaims any warranty or liability for your [...] Gastelum MD - 08/05/2023 10:35 AM EDT [facility] [place]ative [place] Patient Name: Tana Cavazos : [id number] MR#: [id number] Case Date: 08/05/2023 Surgeon: Surgeon(s) and Role: [...] PM EST Office [place] [address] Hollie Ambriz MD [facility] [place] [address] documented as of this encounter Procedures Procedure Name Priority Date/Time Associated Diagnosis Comments SPECIMEN TO PATHOLOGY Routine 08/05/2023 11:01 AM EDT SURGICAL PATHOLOGY REPORT Routine 08/05/2023 11:00 AM EDT Colonoscopy, Biopsy ([id number]) 08/05/2023 10:27 AM EDT Constipation, unspecified constipation type COLONOSCOPY Routine 08/05/2023 9:59 AM EDT documented in this encounter Results * Specimen to Pathology (08/05/2023 11:01 AM EDT) AP Specimen 08/05/2023 11:0 1 AM EDT 08/05/2023 11:01 AM EDT Narrative [facility] - 08/05/2023 11:01 AM EDT Specimen requisition ordered. ??Separate Pathology report to follow Jamar Hair MD PATHOLOGY/CYTOLO GY ORDERABLES [facility] [place] [address] * Surgical Pathology Report (08/05/2023 11:00 AM EDT) Final Diagnosis [id number] ? Location: 4T; EA11; A The signing pathologist has (i) examined the relevant preparation(s) for the specimen(s) and (ii) rendered or confirmed the diagnosis(es). . ?Surgical Pathology DIAGNOSIS A - Rectum r/o microscopic colitis, biopsy (Multiple): - ??Colonic mucosa within normal limits. CR-PX Electronically signed by: ?Jazmyne GIRALDO PhD, Courtney Verified: ??08/17/2023 16:08 ??Pathologist Performed at: ??-[facility], [place] [address] Plastic Sheets Supervisor: Frank Turpin MD, FCAP, ??CLIA Certificate: [id number] SPECIMEN(S) SUBMITTED A - rectum r/o microscopic colitis, biopsy (Multiple) CLINICAL INFORMATION 28-year-old female with chronic constipation SPECIMEN PROCESSING A - Labeled/Fixative : Rectum rule out microscopic colitis, formalin. Quantity/Size: Multiple, averaging 0.3 cm. Tissue Description: Soft, red tissues. Sections/Process ing: Submitted in toto ??in 2 cassettes labeled A1-A2. ??sns 08/17/2023 4:08 PM EDT [facility] GI Biopsy 08/05/2023 11:0 0 AM EDT 08/05/2023 11:00 AM EDT Jamar Hair MD PATHOLOGY/CYTOLO GY ORDERABLES [facility] [place] [address] * COLONOSCOPY (08/05/2023 9:59 AM EDT) COLONOSCOPY [facility] ___ Procedure Date: 08/05/2023 9:59 AM ? Patient Name: Tana Cavazos ? Date of : 1995 ? Age: 28 ? Order #: [id number] ? Instrument Name: [id number] ? ___ Procedure: ? Colonoscopy Indications: ? [...] Active and Recently Administered Medications Care Teams Dance Teacher Relationship Specialty Start Date End Date Lorna Bal APRN [address] [place] [address] PCP - General Family Medicine 05/27/18 documented as of this encounter
--- OUTSIDE RECORDS SUMMARY | 2024-01-05 18:22 | XMS_ITS | Encounter Summary ---
Author Organization [facility] Address [facility] [place] [address] Care Team Providers Care Professor Of English Name Role Phone Valeriano Lorna Carvalho APRN Primary Care Provider +1 [phone] Encounter Details Date Type Department Care Team (Late st Contact Info) Description 08/05/2023 10:24 AM EDT Anesthesia [place] [phone] Christopher Johansen MD [facility] [place] [address] Buster Brooke Anesthesia Record Procedure Summary Procedure [...] Veronica Thornton RN 10/29/23 0000 by Jaye Muryr, EUNICE Incision 07/04/22; 1559; Righ t, lower; [...] 1042; metacarpal vein (top of hand), right; moru-sqc-vwbktu catheter system; 22 gauge; distraction, intradermal injection, tolerated well; LDA not present upon assessment; 10/29/23; 0840 09/26/22 1042 by Ramiro Aden LPN 10/29/23 0840 by Hank Christian RN Incision 09/26/22; 1328; Righ t; gluteal; non-laparascopic puncture; Aspiration site (Gregory, DO); LDA not present upon assessment; 10/29/23 09/26/22 1328 by Nathalie Hernández RN 10/29/23 0000 by Jaye Murry RN PIV 08/05/23; 1015; zkee-kak-jsxaum catheter system; 22 gauge; great saphenous vein [...] Procedure Summary Date: 08/05/23 Room / Location: [facility] / [facility] Anesthesia Start: 1024 Anesthesia Stop: 110 Procedure: COLONOSCOPY FLEXIBLE, WITH BX (WRVU 3.56) (Trunk) Diagnosis: Constipation, unspecified constipation type (Colonoscopy- Chronic constipation and anemia) Surgeons: Jamar Gastelum MD Responsible Provider: Christopher Johansen MD Anesthesia Type: MAC ASA Status: 3 All Anesthesia Providers: Anesthesiologist: Christopher Johansen MD Student Nurse Supervisor Harvesting: Buster Brooke Vitals Value Taken Time BP 119/81 08/05/23 1125 Temp Pulse Resp 16 08/05/23 1125 SpO2 99 % 08/05/23 1127 Pain Level 0 08/05/23 1125 Vitals shown include unfiled device data. Patient Location: PACU/[facility] Level of Consciousness: Awake and Alert [...] a 28 y.o. female. Procedure(s): [facility] Patient Active Problem List Diagnosis [...] All Drainage Procedures 06/25/2022 Mich Martino MD [facility] RAD ??? IR ALL DRAINAGE PROCEDURES 07/04/2022 IR All Drainage Procedures 07/04/2022 Mich Martino MD [facility] RAD ??? IR ALL DRAINAGE PROCEDURES 07/24/2022 IR All Drainage Procedures 07/24/2022 Anurag Kumar MD [facility] RAD ??? IR ALL DRAINAGE PROCEDURES 09/26/2022 IR All Drainage Procedures 09/26/2022 Jamaal Jenkins, DO [facility] RAD ??? IR DRAIN CHECK/CHANGE/REMOVE 07/01/2022 IR Drain Check/Change/Remove 07/01/2022 Jamaal Jenkins, DO [facility] RAD ??? IR DRAIN CHECK/CHANGE/REMOVE 08/11/2022 IR Drain Check/Change/Remove 08/11/2022 Piter Self MD [facility] RAD ??? IR DRAIN CHECK/CHANGE/REMOVE 08/25/2022 IR Drain Check/Change/Remove 08/25/2022 Jamaal Jenkins, DO [facility] RAD ??? IR DRAIN CHECK/CHANGE/REMOVE 09/10/2022 IR Drain Check/Change/Remove 09/10/2022 Mich Martino MD [facility] RAD ??? PRO APPLY OF HIP CASTS, TWO LEGS 08/15/2010 CAST APPLICATION, HIP SPICA, BOTH LEGS performed by BARRERA OLIVER at [facility] OR ? ? PRO I&D, POST SPINE, LUMB/SACR/LUMBOSAC N/A 05/20/2014 @I & D, OPEN, DEEP ABSCESS, LUMBAR, SACRAL, LUMBOSACRAL performed by Freddy Isbell MD at [facility] OR ? ? PRO I&D, POST SPINE, LUMB/SACR/LUMBOSAC N/A 05/26/2014 @I & D, OPEN, DEEP ABSCESS, LUMBAR, SACRAL, LUMBOSACRAL performed by Freddy Isbell MD at [facility] OR ??? PRO IMPACT TOOTH REMOV COMP BONY N/A 06/14/2018 SURGICAL EXTRACTIONS, REMOVAL OF IMPACTED TOOTH, COMPLETELY BONY (WRVU 1.93) performed by Keith Cotton MD at [facility] OSC ??? PRO OSTEOTOMY FEMUR SHAFT/SUPRACONDY 08/15/2010 ??OSTEOTOMY, FEMUR SHAFT OR SUPRACONDYLAR W/O FIXATION performed by BARRERA OLIVER at [facility] MAIN OR ??? PRO RECONSTRUC HIP SOCKET, RESEC FEM HEAD 08/15/2010 ??ACETABULOPLASTY (GIRDLESTONE), RESECTION FEMORAL HEAD, BILATERAL performed by BARRERA OLIVER [facility] MAIN OR ??? PRO REMOVAL DEEP IMPLANT 08/15/2010 REMOVAL IMPLANT, DEEP, BRUNO performed by BARRERA OLIVER at [facility] MAIN OR ??? PRO REMOVAL ERUPTED TOOTH WITH ELEVATION OF MUCOPERIOSTEAL FLAP N/A 06/14/2018 SURGICAL EXTRACTIONS REQUIRING ELEVATION OF MUCOPERIOSTEAL FLAP AND REMOVAL OF BONE OR SECTION OF TOOTH (WRVU 1.09) performed by Keith Cotton MD at [facility] OSC ??? PRO REMOVE INFUSN DEVICE/PUMP N/A 05/11/2014 REMOVAL OF SPINE INFUSION PUMP performed by Jamaal Samuel MD at [facility] MAIN OR ??? PRO REMOVE SPINAL CANAL [...] [Transparent Dressings] Itching and Dermatitis Please use [id number] ??? Cyclobenzaprine Other Reaction(s): Not available ??? [...] risks discussed with patient. Plan discussed with BODY TECHNICIAN. Anesthesia Screening documented in this encounter Plan of Treatment Upcoming Encounters Date Type Department Care Team (Late st Contact Info) Description 06/02/2024 12:30 PM EST Office [place] [phone] Hollie Ambriz MD [facility] [place] [address] documented as of this encounter Visit Diagnoses [...] mg documented in this encounter Care Teams Professor Of English Relationship Specialty Start Date End Date Lorna Bal, [place] [address] [place] [address] PCP - General Family Medicine 05/27/18 documented as of this encounter
--- OUTSIDE RECORDS SUMMARY | 2024-01-05 18:22 | XMS_ITS | Encounter Summary ---
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, other site Procedures CT Thoracic Spine wo Contrast (Generic) Lorna Bal APRN [address] [place] [address] [facility] [place] [address] Referral ID Status Reason Start Date Expiration Date V isits Requested Visits Authorized [id number] Closed Specialty Service Requested 12/25/2022 06/24/2024 1 1 * Diagnostic Test (Routine) - Closed Specialty Diagnoses / Procedures Referred By Contac t Referred To Contact Radiology Diagnoses Cerebral palsy, unspecified type 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, other site Procedures CT Cervical Spine wo Contrast Lorna Bal APRN [address] [place] [address] [facility] [place] [address] Referral ID Status Reason Start Date Expiration Date V isits Requested Visits Authorized [id number] Closed Specialty Service Requested 12/25/2022 06/24/2024 1 1 Reason for Visit * Diagnostic Test (Routine) - Closed Specialty Diagnoses / Procedures Referred By Contmonica t Referred To Contact Radiology Diagnoses Cerebral palsy, unspecified type 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, other site Procedures CT Cervical Spine wo Contrast Lorna Bal APRN [address] [place] [address] [facility] [place] [address] Referral ID Status Reason Start Date Expiration Date V isits Requested Visits Authorized [id number] Closed Specialty Service Requested 12/25/2022 06/24/2024 1 1 Encounter Details Date Type Department Care Team (Latest Contact Info) Description 12/31/2022 10:50 AM EDT - 12/31/2022 11:59 PM EDT Hospital [place] [address] Lorna Bal APRN [address] [place], [place] [id number] Cerebral palsy, unspecified type; Congenital deformity of [...] PM EST Office [place] [address] Hollie Ambriz MD [facility] [place] [address] documented as of this encounter Procedures Procedure [...] questions please contact the health career development coordinator/teacher that requested your imaging first. ? Electronically signed by: Svitlana Mcbride [facility] ([phone]), at 12/31/2022 4:00 PM Narrative 12/31/2022 4:00 [...] have questions please contactthe health career development coordinator/teacher that requested your imaging first. Lorna Bal [...] questions please contact the health career development coordinator/teacher that requested your imaging first. ? Electronically signed by: Svitlana Mcbride [facility] ([phone]), at 12/31/2022 4:00 PM Narrative 12/31/2022 4:00 [...] have questions please contactthe health career development coordinator/teacher that requested your imaging first. 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
--- OUTSIDE RECORDS SUMMARY | 2024-01-05 18:22 | XMS_ITS | Encounter Summary ---
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 Lorna Bal APRN [address] [place] [address] [facility] [place] [facility] [address] [place] [phone] Referral ID Status Reason Start Date Expiration Date Visits Requested Visits Authorized [id number] Authorized Consult, Test & Treat PCP Updated and/or Approved 08/03/2023 08/02/2024 6 6 Encounter Details Date Type Department Care Team (Latest Contact Info) Description 08/03/2023 Transcribe Orders eDH Incoming Referrals [phone] Lorna Bal APRN [address] [place] [address] Contracture of joint of hand, unspecified laterality [...] PM EST Office [place] [address] Hollie Ambriz MD [facility] [place] [address] Scheduled Referrals Name Type Priority Associated Diagnoses Orde r Schedule Referral to Orthopaedics Outpatient Referral Routine Contracture of joint of hand, unspecified laterality Ordered: 08/03/2023 documented as of this encounter Visit Diagnoses Diagnosis Contracture of joint of hand, unspecified laterality documented in this encounter Care Teams Bank Credit Card Collection Clerk Relationship Specialty Start Date End Date Lorna Bal APRN [address] [place] [address] PCP - General Family Medicine 05/27/18 documented as of this encounter
--- OUTSIDE RECORDS SUMMARY | 2024-01-05 18:22 | XMS_ITS | Encounter Summary ---
Author Organization [facility] [place] [address] Care Team Providers Care Commercial Light Fixture Assembler Name Role Phone Lorna Bal APRN Primary Care Provider +1 -[phone] Reason for Referral * Diagnostic Test (Routine) - Closed Specialty Diagnoses / Procedures Referred By Contac t Referred To Contact Radiology Diagnoses Spinal abscess Procedures CT Lumbar Spine w Contrast George Tipton MD [facility] [place] [address] [facility] [place] [address] Referral ID Status Reason Start Date Expiration Date V isits Requested Visits Authorized [id number] Closed Specialty Service Requested 04/15/2023 10/14/2024 1 1 Reason for Visit * Diagnostic Test (Routine) - Closed Specialty Diagnoses / Procedures Referred By Contac t Referred To Contact Radiology Diagnoses Spinal abscess Procedures CT Lumbar Spine w Contrast George Tipton MD [facility] [place] [address] [facility] [place] [address] Referral ID Status Reason Start Date Expiration Date V isits Requested Visits Authorized [id number] Closed Specialty Service Requested 04/15/2023 10/14/2024 1 1 Encounter Details Date Type Department Care Team (Latest Contact Info) Description 04/16/2023 3:10 PM EST - 04/16/2023 11:59 PM EST Hospital [place] [address] [place] [address] Spinal abscess Discharge Disposition: Home [...] PM EST Office [place] [address] Hollie Ambriz MD [facility] [place] [address] documented as of this encounter Procedures Procedure [...] have questions please contact the health care specialist that requested your imaging first. [...] who have questions please contactthe health care specialist that requested your imaging first. [...] mLs documented in this encounter Care Teams Commercial Light Fixture Assembler Relationship Specialty Start Date End Date Lorna Bal APRN [address] [place] [address] PCP - General Family Medicine 05/27/18 documented as of this encounter
--- OUTSIDE RECORDS SUMMARY | 2024-01-05 18:22 | XMS_ITS | Encounter Summary ---
Author Organization [facility] [place] [address] Care Team Providers Care Performance Solutions Specialist Name Role Phone Lorna Bal APRN Primary Care Provider +1 -[phone] Encounter Details Date Type Department Care Team (Late st Contact Info) Description 04/03/2023 Telephone [place] [address] Halima García Social History Tobacco Use Types Packs/Day Years Used Date Smoking Tobacco: Never Smokeless Tobacco: Never Comments:NO SMOKERS IN THE H OME Alcohol Use Standard Drinks/Week Comments No 0 (1 standard drink = 0.6 oz pur e alcohol) [facility] Inpatient Questions Answer Date Recorded [...] lab orders were never sent to [facility]. I reviewed the lab orders and she mentioned the ESR was missing. aJck Varghese documented in this encounter Plan of Treatment Upcoming Encounters Date Type Department Care Team (Late st Contact Info) Description 06/02/2024 12:30 PM EST Office [place] [address] Hollie Ambriz MD [facility] [address] [place] [address] documented as of this encounter Visit Diagnoses Diagnosis Spinal abscess Acute osteomyelitis, other specified site documented in this encounter Care Teams Performance Solutions Specialist Relationship Specialty Start Date End Date Lorna Bal APRN [address] [place] [address] PCP - General Family Medicine 05/27/18 documented as of this encounter
--- OUTSIDE RECORDS SUMMARY | 2024-01-05 18:22 | XMS_ITS | Encounter Summary ---
[place] [address] Care Team Providers Care Customer Service Engineer Name Role Phone Lorna Bal APRN Primary Care Provider +1 [phone] Encounter Details Date Type Department Care Team [...] Office [place] [address] Hollie Ambriz MD [facility] [place] [address] documented as of this encounter Visit Diagnoses Not on filedocumented in this encounter Care Teams Customer Service Engineer Relationship Specialty Start Date End Date Lorna Bal APRN [address] [place] [address] PCP - General Family Medicine 05/27/18 documented as of this encounter
--- OUTSIDE RECORDS SUMMARY | 2024-01-05 18:22 | XMS_ITS | Encounter Summary ---
[place] [address] Care Team Providers Care Packing Checker Name Role Phone Lorna Bal APRN Primary Care Provider +1 [phone] Encounter Details Date Type Department Care Team (Latest Contact Info) Description 04/16/2023 4:05 PM EST Laboratory Appointment Lab [address] [place] [address] Spinal abscess Social History Tobacco Use Types [...] Office [place] [address] Hollie Ambriz MD [facility] [address] INFECTIOUS DISEASE [place] [id number] documented as of this encounter Procedures Procedure Name Priority Date/Time Associated Diagnosis Comments CRP, ACUTE INFLAMMATION Routine 04/16/2023 4:20 PM EST Spinal abscess BILIRUBIN, DIRECT Routine 04/16/2023 4:2 0 PM EST COMPREHENSIVE METABOLIC PANEL Routine 04/16/2023 4:20 PM EST Spinal abscess documented in this encounter Results * Bilirubin, Direct (04/16/2023 4:20 PM EST) Bilirubin, Direct <0.1 0.0 - 0.3 mg/dL [facility] Blood 04/16/2023 4:20 PM EST 04/16/2023 4:28 PM EST Narrative Resulting Agency Comment Spec In Lab George Tipton MD CHEMISTRY ORDERABLES [facility] [place] [address] * (ABNORMAL) Comprehensive metabolic panel (non-fasting) (04/16/2023 4:20 PM EST) Glucose 79 65 - 199 mg/dL [facility] Comment:Diabetes: >=200 mg/d L plus symptoms Blood Urea Nitrogen 10 8 - 18 mg/dL [facility] Creatinine 0.49(L) 0.70 - 1.20 mg/dL [facility] Sodium 137 135 - 145 mmol/L [facility] Potassium 3.8 3.5 - 5.0 mmol/L [facility] Comment: Please note: ??Patients with WBC >100,000 may have falsely elevated Potassium levels. ??For accurate Potassium quantification in these patients send serum separator tube (gold top) for subsequent determinations. ??Contact the Clinical Chemistry Laboratory if there are any questions. Chloride 99 98 - 107 mmol/L [facility] Carbon Dioxide 27 22 - 31 mmol/L [facility] Anion Gap 11 5 - 15 mmol/L [facility] Calcium 9.4 8.5 - 10.5 mg/dL [facility] Protein, Total 7.9 6.1 - 8.0 g/dL [facility] Albumin 4.2 3.2 - 5.2 g/dL [facility] Aspartate Aminotransferase 15 0 - 30 unit/L [facility] Alanine Aminotransferase 40(H) 0 - 30 unit/L [facility] Alkaline Phosphatase 320(H) 35 - 105 unit/L [facility] Bilirubin, Total <0.2(L) 0.2 - 1.3 mg/dL [facility] Est Glomerular Filtration Rate 131 >=60 mL/min/1. 73 m?? [facility] Comment: This patient's [...] Lab Keri Trevino MD CHEMISTRY ORDERABLE S [facility] [place] [address] * (ABNORMAL) CRP, acute inflammation (04/16/2023 4:20 PM EST) C-Reactive Protein 47.2(H) <=4.9 mg/L [facility] Blood 04/16/2023 4:20 PM EST 04/16/2023 4:28 PM EST Narrative Resulting Agency Comment Spec In Lab Keri Trevino MD CHEMISTRY ORDERABLE S [facility] [place] [address] documented in this encounter Visit Diagnoses Diagnosis Spinal abscess Acute osteomyelitis, other specified site documented in this encounter Care Teams Packing Checker Relationship Specialty Start Date End Date Lorna Bal APRN [address] [place] [address] PCP - General Family Medicine 05/27/18 documented as of this encounter
--- OUTSIDE RECORDS SUMMARY | 2024-01-05 18:22 | XMS_ITS | Encounter Summary ---
[place] [address] Care Team Providers Care Milanese Knitting Machine Operator Name Role Phone Lorna Bal APRN Primary Care Provider +1 -[phone] Reason for Referral * Diagnostic Test (Routine) - Closed Specialty Diagnoses / Procedures Referred By Contac t Referred To Contact Radiology Diagnoses Spinal abscess Procedures IR All Drainage Procedures IR All Biopsy Procedures Jamar Dasilva MD [facility] [place] [address] [place] [address] Referral ID Status Reason Start Date Expiration Date V isits Requested Visits Authorized [id number] Closed Specialty Service Requested 09/26/2022 03/28/2024 1 1 Reason for Visit * Diagnostic Test (Routine) - Closed Specialty Diagnoses / Procedures Referred By Contac t Referred To Contact Radiology Diagnoses Spinal abscess Procedures IR All Drainage Procedures IR All Biopsy Procedures Jamar Dasilva MD [facility] [place] [address] [place] [address] Referral ID Status Reason Start Date Expiration Date V isits Requested Visits Authorized [id number] Closed Specialty Service Requested 09/26/2022 03/28/2024 1 1 Encounter Details Date Type Department Care Team (Latest Contact Info) Description 09/26/2022 12:13 PM EDT - 09/26/2022 11:59 PM EDT Hospital [place] [address] Jamar Dasilva MD [facility] [place] [address] Spinal abscess Discharge Disposition: Home [...] is during regular office hours, please call [phone]. If it is after regular office hours, or on weekends or holidays, please call [phone] and ask to speak to the Serging Machine Operator Automatic television maintenance worker for Interventional Radiology. You have received medication [...] : 1995 AGE: 27 y.o. Address: [address] [place] [address] Phone: [phone] (home) Mobile: Telephone Information: Referring Provider: Jamar Dasilva REASON FOR VISIT: Paralumbar fluid aspiration Order Questions Answers Where will study be performed? [facility] Radiology [120] Is the patient on [...] [Transparent Dressings] Itching and Dermatitis Please use [id number] ??? Penicillins Pertinent PMH: Patient Active Problem [...] Questions Answers Where will study be performed? [facility] Radiology [120] Is the patient on [...] All Drainage Procedures 06/25/2022 Mich Martino MD [facility] INTERVENTIONL RAD ??? IR ALL DRAINAGE PROCEDURES 07/04/2022 IR All Drainage Procedures 07/04/2022 Mich Martino MD [facility] INTERVENTIONL RAD ??? IR ALL DRAINAGE PROCEDURES 07/24/2022 IR All Drainage Procedures 07/24/2022 Anurag Kumar MD [facility] INTERVENTIONL RAD ??? IR DRAIN CHECK/CHANGE/REMOVE 07/01/2022 IR Drain Check/Change/Remove 07/01/2022 Jamaal Jenkins, DO [facility] INTERVENTIONL RAD ??? IR DRAIN CHECK/CHANGE/REMOVE 08/11/2022 IR Drain Check/Change/Remove 08/11/2022 Piter Self MD [facility] INTERVENTIONL RAD ??? IR DRAIN CHECK/CHANGE/REMOVE 08/25/2022 IR Drain Check/Change/Remove 08/25/2022 Jamaal Jenkins, DO [facility] INTERVENTIONL RAD ??? IR DRAIN CHECK/CHANGE/REMOVE 09/10/2022 IR Drain Check/Change/Remove 09/10/2022 Mich Martino MD [facility] INTERVENTIONL RAD ??? PRO APPLY OF HIP CASTS, TWO LEGS 08/15/2010 CAST APPLICATION, HIP SPICA, BOTH LEGS performed by BARRERA OLIVER at [facility] OR ? ? PRO I&D, POST SPINE, LUMB/SACR/LUMBOSAC N/A 05/20/2014 @I & D, OPEN, DEEP ABSCESS, LUMBAR, SACRAL, LUMBOSACRAL performed by Freddy Isbell MD at [facility] OR ? ? PRO I&D, POST SPINE, LUMB/SACR/LUMBOSAC N/A 05/26/2014 @I & D, OPEN, DEEP ABSCESS, LUMBAR, SACRAL, LUMBOSACRAL performed by Freddy Isbell MD at [facility] MAIN OR ??? PRO IMPACT TOOTH REMOV COMP BONY N/A 06/14/2018 SURGICAL EXTRACTIONS, REMOVAL OF IMPACTED TOOTH, COMPLETELY BONY (WRVU 1.93) performed by Keith Cotton MD at [facility] OSC ??? PRO OSTEOTOMY FEMUR SHAFT/SUPRACONDY 08/15/2010 ??OSTEOTOMY, FEMUR SHAFT OR SUPRACONDYLAR W/O FIXATION performed by BARRERA OLIVER at [facility] OR ??? PRO RECONSTRUC HIP SOCKET, RESEC FEM HEAD 08/15/2010 ??ACETABULOPLASTY (GIRDLESTONE), RESECTION FEMORAL HEAD, BILATERAL performed by BARRERA OLIVER [facility] OR ??? PRO REMOVAL DEEP IMPLANT 08/15/2010 REMOVAL IMPLANT, DEEP, BRUNO performed by BARRERA OLIVER at [facility] OR ??? PRO REMOVAL ERUPTED TOOTH WITH ELEVATION OF MUCOPERIOSTEAL FLAP N/A 06/14/2018 SURGICAL EXTRACTIONS REQUIRING ELEVATION OF MUCOPERIOSTEAL FLAP AND REMOVAL OF BONE OR SECTION OF TOOTH (WRVU 1.09) performed by Keith Cotton MD at [facility] OSC ??? PRO REMOVE INFUSN DEVICE/PUMP N/A 05/11/2014 REMOVAL OF SPINE INFUSION PUMP performed by Jamaal Samuel MD at [facility] OR ??? PRO REMOVE SPINAL CANAL CATHETER N/A 05/11/2014 REMOVAL OF INTRATHECAL OR EPIDURAL CATHETER performed by Jamaal Samuel MD at [facility] OR ??? PRO REPR, DURAL/CSF LEAK, NOT REQ LAMINECTOMY N/A 05/20/2014 @REPAIR DURAL\CSF LEAK,NOT REQUIRING LAMINECTOMY performed by Freddy Isbell MD at [facility] OR Social History and Habits: Social [...] PM EST Office [place] [address] Hollie Ambriz MD [facility] [place] [address] documented as of this encounter Procedures Procedure [...] present throughout the procedure. Jamar Dasilva MD [facility] IR ORDERABLES * Anaerobic Culture (09/26/2022 12:49 PM EDT) Anaerobic Culture No anaerobic organisms isolated [facility] Abscess STRUCTURE OF BACK OF TRUNK / Unknown 09/26/2022 12:49 PM EDT 09/26/2022 2:05 PM EDT Narrative Resulting Agency Comment Spec In Lab Jamar Dasilva MD MICROBIOLOGY - GE NERAL ORDERABLES Performing Organization Address [facility] [place] [address] * Abscess/Wound Aspirate Culture (09/26/2022 12:49 PM EDT) Abscess/Wound Aspirate Culture No growth [facility] Gram Stain Few Neutrophils seen No microorganisms seen. [facility] Abscess STRUCTURE OF BACK OF TRUNK / Unknown 09/26/2022 12:49 PM EDT 09/26/2022 2:05 PM EDT Narrative Resulting Agency Comment Spec In Lab Jamar Dasilva MD MICROBIOLOGY - GE NERAL ORDERABLES Performing Organization Address [facility] [place] [address] * Calcofluor White Stain (09/26/2022 12:49 PM EDT) Calcofluor Stain Calcofluor White Preparation: Negative [facility] Abscess 09/26/2022 12:4 9 PM EDT 09/26/2022 2:05 PM EDT Narrative Resulting Agency Comment Spec In Lab Jamar Dasilva MD MICROBIOLOGY - GE NERAL ORDERABLES Performing Organization Address [facility] Co de Phone Number [facility] [place] [address] * Fungus culture (09/26/2022 12:49 PM EDT) Fungus Culture No Fungus isolated [facility] Abscess 09/26/2022 12:4 9 PM EDT 09/26/2022 2:05 PM EDT Narrative Resulting Agency Comment Spec In Lab Jamar Dasilva MD MICROBIOLOGY - GE NERAL ORDERABLES Performing Organization Address [facility]/ZIP Co de Phone Number [facility] [place] [address] * AFB culture Back (09/26/2022 12:49 PM EDT) Acid Fast Bacilli Culture No Acid Fast Bacilli isolated [facility] Acid Fast Stain No Acid Fast Bacilli seen [facility] Back 09/26/2022 12:4 9 PM EDT 09/26/2022 2:05 PM EDT Narrative Resulting Agency Comment Spec In Lab Jamar Dasilva MD MICROBIOLOGY - [facility] ORDERABLES [facility] [place] [address] documented in this encounter Visit Diagnoses Diagnosis [...] mLs documented in this encounter Care Teams Milanese Knitting Machine Operator Relationship Specialty Start Date End Date Lorna Bal APRN [address] [place] [address] PCP - General Family Medicine 05/27/18 documented as of this encounter
--- OUTSIDE RECORDS SUMMARY | 2024-01-05 18:22 | XMS_ITS | Encounter Summary ---
Author Organization [facility] [place] [address] Care Team Providers Care Carton Gluing Machine Operator Name Role Phone Lorna Bal APRN Primary Care Provider +1 -[phone] Encounter Details Date Type Department Care Team (Late st Contact Info) Description 03/30/2023 Telephone [place] [address] Halima García Social History Tobacco Use Types [...] 8:44 AM EST Erika - pharmacist CB: [phone] [facility] - [place], [place] - [address] [facility]. Erika from [place] [facility] called Dr. Tipton isn't setup with [place] medicaid so the script for bactrim won't go through. The pharmacy is requesting a new script from the attending. Thanks Halima documented in this encounter Plan of Treatment Upcoming Encounters Date Type Department Care Team (Late st Contact Info) Description 06/02/2024 12:30 PM EST Office [place] [address] Hollie Ambriz MD [facility] [place] [address] documented as of this encounter Visit Diagnoses Not on filedocumented in this encounter Care Teams Carton Gluing Machine Operator Relationship Specialty Start Date End Date Lorna Bal APRN [address] [place] [address] PCP - General Family Medicine 05/27/18 documented as of this encounter
--- OUTSIDE RECORDS SUMMARY | 2024-01-05 18:22 | XMS_ITS | Encounter Summary ---
Author Organization [facility] [place] [address] Care Team Providers Care Porcelain Waxer Name Role Phone Lorna Bal APRN Primary Care Provider +1 -[phone] Encounter Details Date Type Department Care Team (Late st Contact Info) Description 08/11/2023 Telephone [place] [phone] Halima García Social History Tobacco Use Types [...] (Bactrim) 400-80 mg tablet. Please send to: [facility] [place]- - [place], [place] - [address] [facility] documented in this encounter Plan of Treatment Upcoming Encounters Date Type Department Care Team (Late st Contact Info) Description 06/02/2024 12:30 PM EST Office [place] [address] Hollie Ambriz MD [facility] [place] [address] documented as of this encounter Visit Diagnoses Not on filedocumented in this encounter Care Teams Porcelain Waxer Relationship Specialty Start Date End Date Lorna Bal APRN [address] [place] [address] PCP - General Family Medicine 05/27/18 documented as of this encounter
--- OUTSIDE RECORDS SUMMARY | 2024-01-05 18:22 | XMS_ITS | Encounter Summary ---
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 Followed up with in [place]. MRI was not possible sec. To hardware. CRP/ESR was trending upwards. [facility]G referred her to [facility] for surgery. The patient went [...] liquefied hematoma or abscess. Neurosurgeon recommended continuing vermin exterminator suppressive antibiotics. Subjective: We called and [...] Tipton MD Infectious Diseases Fellow- [email or web address] Pager: [phone] 07/01/2023 5:26 PM Plan discussed with Dr. Nikolay Toledo This note was created using [employer]) voice recognition software. * Nikolay Toledo MD [...] PM EST Office [place] [address] Nikolay Toledo MD [facility] [place] [address] documented as of this encounter Visit Diagnoses Diagnosis Spinal abscess Acute osteomyelitis, other specified site termite control representative 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 Encounter for long-term (current) use of antibiotics documented in this encounter Care Teams Electronic Train Control Technician Relationship Specialty Start Date End Date Lorna Bal APRN [address] [place] [address] PCP - General Family Medicine 05/27/18 documented as of this encounter
--- OUTSIDE RECORDS SUMMARY | 2024-01-05 18:22 | XMS_ITS | Encounter Summary ---
[place] [address] Care Team Providers Care Sailing Instructor Name Role Phone Lorna Bal APRN Primary Care Provider [phone] [phone] Encounter Details Date Type Department Care Team (Latest Contact Info) Description 09/26/2022 Travel Social History Tobacco Use Types Packs/Day Years Used Date Smoking Tobacco: Never Smokeless Tobacco: Never Comments:NO SMOKERS IN THE H OME Alcohol Use Standard Drinks/Week Comments No 0 (1 standard drink = 0.6 oz pur e alcohol) [facility] Inpatient Questions Answer Date [...] PM EST Office [place] [phone] Hollie Ambriz MD [facility] [place] [address] documented as of this encounter Visit Diagnoses Not on filedocumented in this encounter Care Teams Sailing Instructor Relationship Specialty Start Date End Date Lorna Bal APRN [address] [place] [address] PCP - General Family Medicine 05/27/18 documented as of this encounter
--- OUTSIDE RECORDS SUMMARY | 2024-01-05 18:22 | XMS_ITS | Encounter Summary ---
[place] [address] Care Team Providers Care Smoke Room Operator Name Role Phone Lorna Bal APRN Primary Care Provider [phone] [phone] Reason for Referral * Consultation (Urgent) - Closed Specialty Diagnoses / Procedures Referred By Contac t Referred To Contact Infectious Diseases Diagnoses Osteomyelitis, unspecified site, unspecified type Spinal cord abscess Lorna Bal APRN [address] [place] [address] [facility] [address] [place] [phone] Referral ID Status Reason Start Date Expiration Date V isits Requested Visits Authorized [id number] Closed Consult, Test & Treat PCP Updated and/or Approved 12/23/2022 12/23/2023 6 6 Encounter Details Date Type Department Care Team (Latest Contact Info) Description 12/23/2022 Transcribe Orders eDH Incoming Referrals [phone] Lorna Bal APRN [address] [place] [address] Osteomyelitis, unspecified site, unspecified type; [...] PM EST Office [place] [address] Hollie Ambriz MD [facility] [place] [address] Scheduled Referrals Name Type Priority Associated Diagnoses Order Schedule Referral to Infectious Disease and [facility] Outpatient Referral Urgent Osteomyelitis, unspecified site, unspecified type Spinal cord abscess Ordered: 12/23/2022 documented as of this encounter Visit Diagnoses Diagnosis Osteomyelitis, unspecified site, unspecified type Spinal cord abscess Acute osteomyelitis, other specified site documented in this encounter Care Teams Smoke Room Operator Relationship Specialty Start Date End Date Lorna Bal APRN [address] [place] [address] PCP - General Family Medicine 05/27/18 documented as of this encounter
--- OUTSIDE RECORDS SUMMARY | 2024-01-05 18:22 | XMS_ITS | Encounter Summary ---
[place] [address] Care Team Providers Care Retail Selling Specialist Name Role Phone Lorna Bal APRN Primary Care Provider [phone] [phone] Encounter Details Date Type Department Care Team [...] PM EST Office [place] [phone] Hollie Ambriz MD [facility] [place] [address] documented as of this encounter Visit Diagnoses Not on filedocumented in this encounter Care Teams Retail Selling Specialist Relationship Specialty Start Date End Date Lorna Bal APRN [address] [place] [address] PCP - General Family Medicine 05/27/18 documented as of this encounter
--- OUTSIDE RECORDS SUMMARY | 2024-01-05 18:22 | XMS_ITS | Encounter Summary ---
Author Organization [facility] [place] [address] Care Team Providers Care Ballistics Professor Name Role Phone Lorna Bal APRN Primary Care Provider [phone] [phone] Reason for Referral * Diagnostic Test (Routine) - Closed Specialty Diagnoses / Procedures Referred By Contac t Referred To Contact Radiology Diagnoses Spinal abscess Procedures CT Lumbar Spine w Contrast George Tipton MD [facility] [place] [address] [facility] [place] [address] Referral ID Status Reason Start Date Expiration Date V isits Requested Visits Authorized [id number] Closed Specialty Service Requested 04/15/2023 10/14/2024 1 1 Encounter Details Date Type Department Care Team (Late st Contact Info) Description 04/15/2023 [place] [address] George Tipton MD [facility] [place] [address] Social History Tobacco Use Types Packs/Day Years Used Date Smoking Tobacco: Never Smokeless Tobacco: Never Comments:NO SMOKERS IN THE H OME Alcohol Use Standard Drinks/Week Comments No 0 (1 standard drink = 0.6 oz pur e alcohol) [facility] Inpatient Questions Answer Date Recorded [...] PM EST Office [place] [address] Hollie Ambriz MD [facility] [place] [address] documented as of this encounter Results * [...] have questions please contact the health care worker that requested your imaging first. [...] who have questions please contactthe health care worker that requested your imaging first. Keri Trevino MD IMG CT ORDERABLES documented in this encounter Visit Diagnoses Diagnosis Spinal abscess- Primary Acute osteomyelitis, other specified site Spinal abscess Acute osteomyelitis, other specified site documented in this encounter Care Teams Ballistics Professor Relationship Specialty Start Date End Date Lorna Bal APRN [address] [place] [address] PCP - General Family Medicine 05/27/18 documented as of this encounter
--- OUTSIDE RECORDS SUMMARY | 2024-01-05 18:22 | XMS_ITS | Encounter Summary ---
Author Organization [facility] [place] [address] Care Team Providers Care Internal Communications Intern Name Role Phone Lorna Bal APRN Primary Care Provider [phone] [phone] Reason for Visit * Consultation (Routine) - Authorized Specialty Diagnoses / Procedures Referred By Karlo duarte Referred To Contact Gastroenterology Diagnoses Constipation, unspecified constipation type constipation Lorna Bal APRN [address] [place] [address] [facility] [address] [address] Referral ID Status Reason Start Date Expiration Date Visits Requested Visits Authorized [id number] Authorized Consult, Test & Treat PCP Updated and/or Approved 01/30/2023 01/30/2024 12 12 Encounter Details Date Type Department Care Team (Latest Contact Info) Description 06/08/2023 9:00 AM EST TH Visit (TeleHealth) [place] [address] Samantha Crystal APRN [facility] [place] [address] [...] BARRERA OLIVER [facility] MAIN OR PRO REMOVAL DEEP IMPLANT [...] at [facility] MAIN OR MEDICATIONS: Current Outpatient Medications [...] [Transparent Dressings] Itching and Dermatitis Please use [id number] Cyclobenzaprine Other Reaction(s): Not available Penicillins SOCIAL [...] labs. Theyare requesting these to go to [facility] ([facility] They are aware [...] Mom requesting consent to order colonoscopy. Called [phone]. Awaiting call back for consent for colonoscopy. Ordered colonoscopy at this time and will await consent confirmation with mom prior to procedure. Total time spent on encounter today: Time spent reviewing records prior to this encounter: 10 minutes Time spent during encounter with patient including counselin minutes Time spent documenting encounter after office visit: 5 minutes Samantha Crystal, MSN, DROP CREW LABORER, [employer] Section of Gastroenterology [place] [address] documented in this encounter Plan of Treatment Upcoming Encounters Date Type Department Care Team (Late st Contact Info) Description 06/02/2024 12:30 PM EST Office [place] [address] Hollie Ambriz MD [facility] [place] [address] Scheduled Orders Name Type Priority Associated Diagnoses [...] type documented in this encounter Care Teams Internal Communications Intern Relationship Specialty Start Date End Date Lorna Bal APRN [address] [place] [address] PCP - General Family Medicine 05/27/18 documented as of this encounter
--- OUTSIDE RECORDS SUMMARY | 2024-01-05 18:22 | XMS_ITS | Encounter Summary ---
[place] [address] Care Team Providers Care Osteopathic Physician Name Role Phone Lorna Bal APRN Primary Care Provider [phone] [phone] Encounter Details Date Type Department Care Team [...] PM EST Office [place] [phone] Hollie Ambriz MD [facility] [place] [address] documented as of this encounter Visit Diagnoses Not on filedocumented in this encounter Care Teams Osteopathic Physician Relationship Specialty Start Date End Date Lorna Bal APRN [address] [place] [address] PCP - General Family Medicine 05/27/18 documented as of this encounter
--- OUTSIDE RECORDS SUMMARY | 2024-01-05 18:22 | XMS_ITS | Encounter Summary ---
Author Organization [facility] Address [facility] [place] [address] Care Team Providers Care Universal Worker Assisted Living Name Role Phone Lorna Bal APRN Primary Care Provider [phone] [phone] Reason for Visit * Reason Onset Date Comments Medication Refill 08/11/2023 Encounter Details Date Type Department Care Team (Late st Contact Info) Description 08/11/2023 [place] [address] Hollie Ambriz MD [facility] [address] [place] [address] Social History Tobacco Use Types Packs/Day Years [...] PM EST Office [place] [address] Hollie Ambriz MD [facility] [place] [address] documented as of this encounter Visit Diagnoses Not on filedocumented in this encounter Care Teams Universal Worker Assisted Living Relationship Specialty Start Date End Date Lorna Bal APRN [address] [place] [address] PCP - General Family Medicine 05/27/18 documented as of this encounter
--- OUTSIDE RECORDS SUMMARY | 2024-01-05 18:22 | XMS_ITS | Encounter Summary ---
[place] [address] Care Team Providers Care Irrigation System Operator Name Role Phone Lorna Bal APRN Primary Care Provider [phone] [phone] Encounter Details Date Type Department Care Team [...] EST Office Visit [place] [address] Hollie Ambriz MD [facility] [place] [address] documented as of this encounter Visit Diagnoses Not on filedocumented in this encounter Care Teams Irrigation System Operator Relationship Specialty Start Date End Date Lorna Bal APRN [address] [place] [address] PCP - General Family Medicine 05/27/18 documented as of this encounter
--- OUTSIDE RECORDS SUMMARY | 2024-01-05 18:22 | XMS_ITS | Encounter Summary ---
Author Organization [facility] Address [facility] [place] [address] Care Team Providers Care Fire Hydrant Mechanic Name Role Phone Lorna Bal APRN Primary Care Provider [phone] Reason for Visit * Reason Comments Follow-up Encounter Details Date Type Department Care Team (Late st Contact Info) Description 03/26/2023 10:00 AM EST Office [place] [address] George Tipton MD [facility] [place] [address] 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 Dx) Social History Tobacco [...] remained on bactrim. Followed up with in [place]. MRI was not possible sec. To hardware. CRP/ESR was trending upwards. NSG referred her to [facility] for surgery. The patient went to the [...] Tipton MD Infectious Diseases Fellow- [id number] Pager: [phone] 03/25/2023 4:00 PM Plan discussed with Dr. Gabo Trevino This note was created using Tw[employer]) voice recognition software. I have seen the [...] 1-2 weeks from initiation. Gabo Trevino MD [facility] Infectious Disease * Olinda Barahona RN - [...] 1-2 weeks from initiation. Gabo Trevino MD [facility] Infectious Disease documented in this encounter Plan of Treatment Upcoming Encounters Date Type Department Care Team (Late st Contact Info) Description 06/02/2024 12:30 PM EST Office [place] [address] Hollie Ambriz MD [facility] [place] [address] Scheduled Orders Name Type Priority Associated Diagnoses [...] PM EST) C-Reactive Protein 47.2(H) <=4.9 mg/L [facility] Blood 04/16/2023 4:20 PM EST 04/16/2023 4:28 PM EST Narrative Resulting Agency Comment Spec In Lab Gabo Trevino MD CHEMISTRY ORDERABLE S [facility] [place] [address] * (ABNORMAL) Comprehensive metabolic panel (non-fasting) (04/16/2023 4:20 PM EST) Glucose 79 65 - 199 mg/dL [facility] Comment:Diabetes: >=200 mg/d L plus symptoms Blood Urea Nitrogen 10 8 - 18 mg/dL [facility] Creatinine 0.49(L) 0.70 - 1.20 mg/dL [facility] Sodium 137 135 - 145 mmol/L [facility] Potassium 3.8 3.5 - 5.0 mmol/L [facility] Comment: Please note: ??Patients with WBC >100,000 may have falsely elevated Potassium levels. ??For accurate Potassium quantification in these patients send serum separator tube (gold top) for subsequent determinations. ??Contact the Clinical Chemistry Laboratory if there are any questions. Chloride 99 98 - 107 mmol/L [facility] Carbon Dioxide 27 22 - 31 mmol/L [facility] Anion Gap 11 5 - 15 mmol/L [facility] Calcium 9.4 8.5 - 10.5 mg/dL [facility] Protein, Total 7.9 6.1 - 8.0 g/dL [facility] Albumin 4.2 3.2 - 5.2 g/dL [facility] Aspartate Aminotransferase 15 0 - 30 unit/L [facility] Alanine Aminotransferase 40(H) 0 - 30 unit/L [facility] Alkaline Phosphatase 320(H) 35 - 105 unit/L [facility] Bilirubin, Total <0.2(L) 0.2 - 1.3 mg/dL [facility] Est Glomerular Filtration Rate 131 >=60 mL/min/1. 73 m?? [facility] Comment: This patient's estimated GFR [...] Lab Gabo Trevino [place] [address] * US Abdomen Limited Hepatology Protocol (03/27/2023 [...] PM Electronically signed by: Curt Dozier MD, [facility] ([phone]), at 03/27/2023 3:31 PM Thank you for letting us participate in the care of this patient. If you are a health care provider and have any questions regarding this report, please contact the number above. For patients who have questions, please contact the health ambulatory care that requested your imaging first. ? Curt Dozier, Staff Physician Electronically Signed Final Report ?? 03/27/2023 03:36 pm Narrative 03/27/2023 3:37 PM EST Abdominal ? (Signed Final 03/27/2023 03:36 pm) PATIENT INFO: ID #: ? [id number] ?: ??[birth year] (27 yrs)(F) Name: ? TANA SHELTON ?Visit Date: 03/27/2023 03:21 pm PERFORMED BY: Attending: ?Jacoby GONZALES MD, Curt Langston Performed By: ? Shelby Gardner RDMS Referred By: ?GABO TREVINO Location: ? [place] SERVICE(S) PROVIDED: [facility] - Hepatology Protocol - Abdominal ?[id number] Limited Survey Single Organ or Quadrant - [id number] INDICATIONS: Transaminitis ------ LIVER: ------ Right Lobe [...] 03/27/2023 03:36 pm) PATIENT INFO: ID #: [id number] : [birth year] (27 yrs)(F) Name: TANA SHELTON Visit Date: 03/27/2023 03:21 pm PERFORMED BY: Attending: Jacoby GONZALES MD, Arthur L. Performed By: Shelby Gardner RDMS Referred By: GABO TREVINO Location: [place] SERVICE(S) PROVIDED: [facility] - Hepatology Protocol - Abdominal 04064 Limited Survey Single Organ or Quadrant - [id number] INDICATIONS: Transaminitis ------ LIVER: ------ Right Lobe [...] PM Electronically signed by: Curt Dozier MD, [facility] ([phone]), at 03/27/2023 3:31 PM Thank you for letting us participate in the care of this patient. If you are a health care provider and have any questions regarding this report, please contact the number above. For patients who have questions, please contact the health ambulatory care that requested your imaging first. Curt Dozier, Staff Physician Electronically Signed Final Report 03/27/2023 03:36 pm Gabo Trevion MD IMG US GEN ORDERABL ES * Scan, Peripheral Blood (03/26/2023 11:06 AM EST) Pathologist [facility] Plat estimate Normal [facility] RBC Morphology Abnormal [facility] Hypochromia Slight [facility] Stomatocytes 1-5 /HPF [facility] Stippled RBC Present >1/HPF [facility] Blood 03/26/2023 11:0 6 AM EST 03/26/2023 11:21 AM EST Narrative Resulting Agency Comment Spec In Lab George Tipton MD HEMATOLOGY ORDERABLE S [facility] [place] [address] * Differential, Automated (03/26/2023 11:06 AM EST) Neutrophil % 62.0 % [facility] Neutrophil Absolute 3.69 1.70 - 6.10 x10(3)/[facility] Lymph % 27.7 % [facility] Lymphocytes Abs 1.6 0.9 - 3.2 x10(3)/[facility] Monocyte % 7.7 % [facility] Monocyte Abs 0.5 0.3 - 0.9 x10(3)/[facility] Eos % 1.8 % [facility] Eosinophils Abs 0.1 0.0 - 0.4 x10(3)/[facility] Basophil % 0.5 % [facility] Baso Absolute 0.0 0.0 - 0.1 x10(3)/[facility] Immature Gran % 0.30 % [facility] Comment: Immature granulocytes(IG's)percentage and absolute count will include metamyelocytes, myelocytes, and promyelocytes. Blood smears from CBCs yielding IG's will be scanned manually for concordance. If this scan disagrees with the automated IG or if promyelocytes are noted, a manual differential will be performed. Immature Gran Absolute 0.02 0.00 - 0.04 x10(3)/[facility] Blood 03/26/2023 11:0 6 AM EST 03/26/2023 11:21 AM EST Narrative Resulting Agency Comment Spec In Lab George Tipton MD HEMATOLOGY ORDERABLE S Performing Organization Address City/State/[facility] Co de Phone Number [facility] [place] [address] * (ABNORMAL) Hemogram (03/26/2023 11:06 AM EST) White Blood Cell 6.0 4.0 - 9.5 x10(3)/mc L [facility] Red Blood Cell 3.07(L) 4.00 - 5.21 x10(6)/mc L [facility] Hemoglobin 8.9(L) 11.7 - 15.5 g/dL [facility] Hematocrit 27.5(L) 35.7 - 45.8 % [facility] Mean Cell Volume 89.6 82.6 - 94.4 fL [facility] Mean Cell Hemoglobin 29.0 27.1 - 32.0 pg [facility] Mean Cell Hemoglobin Concentration 32.4 31.7 - 35.0 g/dL [facility] Platelet 355 145 - 357 x10(3)/mc L [facility] RDW Standard Deviation 49.0(H) 37.0 - 46.0 fL [facility] RDW coefficient of variation 15.0(H) 11.5 - 14.1 % [facility] Mean Platelet Volume 9.1 7.6 - 12.9 fL [facility] NRBC% auto 0.0 % [facility] NRBC Absolute 0.000 0.000 - 0.000 x10(3)/mc L [facility] Blood 03/26/2023 11:0 6 AM EST 03/26/2023 11:21 AM EST Narrative Resulting Agency Comment Spec In Lab George Tipton MD HEMATOLOGY ORDERABLE S Performing Organization Address City/State/[facility] Co de Phone Number [facility] [place] [address] * (ABNORMAL) Comprehensive metabolic panel (non-fasting) (03/26/2023 11:06 AM EST) Glucose 81 65 - 199 mg/dL [facility] Comment:Diabetes: >=200 mg/d L plus symptoms Blood Urea Nitrogen 19(H) 8 - 18 mg/dL [facility] Creatinine 0.27(L) 0.70 - 1.20 mg/dL [facility] Sodium 140 135 - 145 mmol/L [facility] Potassium 4.3 3.5 - 5.0 mmol/L [facility] Comment: Please note: ??Patients with WBC >100,000 may have falsely elevated Potassium levels. ??For accurate Potassium quantification in these patients send serum separator tube (gold top) for subsequent determinations. ??Contact the Clinical Chemistry Laboratory if there are any questions. Chloride 104 98 - 107 mmol/L [facility] Carbon Dioxide 23 22 - 31 mmol/L [facility] Anion Gap 13 5 - 15 mmol/L [facility] Calcium 9.8 8.5 - 10.5 mg/dL [facility] Protein, Total 7.7 6.1 - 8.0 g/dL [facility] Albumin 4.3 3.2 - 5.2 g/dL [facility] Aspartate Aminotransferase 45(H) 0 - 30 unit/L [facility] Alanine Aminotransferase 101(H) 0 - 30 unit/L [facility] Alkaline Phosphatase 378(H) 35 - 105 unit/L [facility] Bilirubin, Total <0.2(L) 0.2 - 1.3 mg/dL [facility] Est Glomerular Filtration Rate 151 >=60 mL/min/1. 73 m?? [facility] Comment: This patient's estimated GFR [...] MD CHEMISTRY ORDERABLE S Performing Organization Address City/[facility]/ZIP Co de Phone Number [facility] [place] [address] * (ABNORMAL) Sedimentation rate (03/26/2023 11:06 AM EST) Sedimentation Rate Automated 69(H) 2 - 37 mm/hr [facility] Comment: Effective April 06, 2019 new capillary photometric technology has resulted in a change in reference ranges. It is recommended that each ESR result be reviewed with its own age appropriate reference range. Blood 03/26/2023 11:0 6 AM EST 03/26/2023 11:21 AM EST Narrative Resulting Agency Comment Spec In Lab Gabo Trevino MD HEMATOLOGY ORDERABL ES Performing Organization Address City/[facility]/ZIP Co de Phone Number [facility] [place] [address] * (ABNORMAL) CRP, acute inflammation (03/26/2023 11:06 AM EST) C-Reactive Protein 86.3(H) <=4.9 mg/L [facility] Blood 03/26/2023 11:0 6 AM EST 03/26/2023 11:21 AM EST Narrative Resulting Agency Comment Spec In Lab Gabo Trevino MD CHEMISTRY ORDERABLE S Performing Organization Address City/State/[facility] Co de Phone Number [facility] [place] [address] documented in this encounter Visit Diagnoses Diagnosis Spinal abscess- Primary Acute osteomyelitis, other specified site Spinal abscess Acute osteomyelitis, other specified site documented in this encounter Care Teams Fire Hydrant Mechanic Relationship Specialty Start Date End Date Lorna Bal APRN [address] [place] [address] PCP - General Family Medicine 05/27/18 documented as of this encounter
--- OUTSIDE RECORDS SUMMARY | 2024-01-05 18:22 | XMS_ITS | Encounter Summary ---
[place] [address] Care Team Providers Care Aquarist Name Role Phone Lorna Bal APRN Primary Care Provider [phone] Reason for Referral * Consultation (Routine) - Authorized Specialty Diagnoses / Procedures Referred By Contmonica t Referred To Contact Gastroenterology Diagnoses Constipation, unspecified constipation type constipation Lorna Bal APRN [address] [place] [address] [facility] [address] [place] [phone] Referral ID Status Reason Start Date Expiration Date Visits Requested Visits Authorized [id number] Authorized Consult, Test & Treat PCP Updated and/or Approved 01/30/2023 01/30/2024 12 12 Encounter Details Date Type Department Care Team (Latest Contact Info) Description 01/30/2023 Transcribe Orders eDH Incoming Referrals [phone] Lorna Bal APRN [address] [place], [place] [id number] Constipation, unspecified constipation type Social History Tobacco [...] PM EST Office [place] [address] Hollie Ambriz MD [facility] [place] [address] Scheduled Referrals Name Type Priority Associated Diagnoses Order Schedule Referral to Gastroenterology Outpatient Referral Routine Constipation, unspecified constipation type Ordered: 01/30/2023 documented as of this encounter Visit Diagnoses Diagnosis Constipation, unspecified constipation type documented in this encounter Care Teams Aquarist Relationship Specialty Start Date End Date Lorna Bal APRN [address] [place] [address] PCP - General Family Medicine 05/27/18 documented as of this encounter
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
--- OUTSIDE RECORDS SUMMARY | 2024-01-05 18:22 | XMS_ITS | Encounter Summary ---
Author Organization [facility] [place] [address] Care Team Providers Care Lamp Inspector Name Role Phone Lorna Bal APRN Primary Care Provider [phone] Reason for Referral * Consultation (Routine) - Closed Specialty Diagnoses / Procedures Referred By Contac t Referred To Contact Wound Care Diagnoses Osteomyelitis, unspecified site, unspecified type Spinal cord abscess Lorna Bal APRN [address] [place] [address] [facility] [place] [address] Referral ID Status Reason Start Date Expiration Date V isits Requested Visits Authorized [id number] Closed Consult, Test & Treat PCP Updated and/or Approved 12/26/2022 12/26/2023 12 12 Encounter Details Date Type Department Care Team (Latest Contact Info) Description 12/26/2022 Transcribe Orders eDH Incoming Referrals [phone] Lorna Bal APRN [address] [place] [address] Osteomyelitis, unspecified site, unspecified type; [...] EST Office Visit [place] [address] Hollie Ambriz MD [facility] [place] [address] Scheduled Referrals Name Type Priority Associated Diagnoses Orde r Schedule Referral to Plastic Surgery Outpatient Referral Routine Osteomyelitis, unspecified site, unspecified type Spinal cord abscess Ordered: 12/26/2022 documented as of this encounter Visit Diagnoses Diagnosis Osteomyelitis, unspecified site, unspecified type Spinal cord abscess Acute osteomyelitis, other specified site documented in this encounter Care Teams Lamp Inspector Relationship Specialty Start Date End Date Lorna Bal APRN [address] [place] [address] PCP - General Family Medicine 05/27/18 documented as of this encounter
--- OUTSIDE RECORDS SUMMARY | 2024-01-05 18:22 | XMS_ITS | Encounter Summary ---
Author Organization [facility] [place] [address] Care Team Providers Care Shower Enclosure Installer Name Role Phone Lorna Bal APRN Primary Care Provider +1 -[phone] Encounter Details Date Type Department Care Team (Late st Contact Info) Description 09/26/2022 Telephone [place] [address] Valentina Stanton Social History Tobacco Use Types [...] caregiver Fernanda once we know at number [phone]. This was okay per pt Mom. documented in this encounter Plan of Treatment Upcoming Encounters Date Type Department Care Team (Late st Contact Info) Description 06/02/2024 12:30 PM EST Office [place] [address] Hollie Ambriz MD [facility] [place] [address] documented as of this encounter Visit Diagnoses Not on filedocumented in this encounter Care Teams Shower Enclosure Installer Relationship Specialty Start Date End Date Lorna Bal APRN [address] [place] [address] PCP - General Family Medicine 05/27/18 documented as of this encounter
--- OUTSIDE RECORDS SUMMARY | 2024-01-05 18:22 | XMS_ITS | Encounter Summary ---
Author Organization [facility] Address [facility] [place] [address] Care Team Providers Care Assistant Program Manager Name Role Phone Lorna Bal APRN Primary Care Provider +1 -[phone] Encounter Details Date Type Department Care Team (Late st Contact Info) Description 08/05/2023 10:15 AM EDT - 08/05/2023 11:00 AM EDT [place] [address] Jamar Gastelum MD [facility] [place] [address] COLONOSCOPY FLEXIBLE, WITH BX (WRVU 3.56) Social [...] encounter Discharge Instructions * Discharge Instructions* Laura Pdero RN - 08/05/2023 11:01 AM EDT Colonoscopy: [...] occurs, please contact your Doctor. Please call [phone] before 8pm Mon-Fri with problems, questions or concerns. If you call after 8pm or on weekends, call the Hospital at [phone] and ask to speak to the Campaign Specialist electron gun assembler and the paint spraying machine operator helper will contact that person for you. When should you call for help? Call [phone] anytime you think you may need emergency [...] Where can you learn more? [facility] View your After Visit Summary and more online at [email or web address] If you would like to provide feedback about your hospital experience, please call the Office of Patient and Family Relations at . If you have received this After Visit Summary in error, please immediately return it in person to the department, or notify the [facility] Privacy Office by calling toll free at between the hours of 8AM and 5PM to arrange for our retrieval of the documents at no cost to you. Content Version: 12.2 ?? [id number] [email or web address]. Care instructions adapted under license by [facility]. If you have questions about a medical condition or this instruction, always ask your healthcare professional. [email or web address] disclaims any warranty or liability for your [...] Gastelum MD - 08/05/2023 10:[address] [facility] Operative Note Patient Name: Tana Cavazos : [id number] MR#: [id number] Case Date: 08/05/2023 Surgeon: Surgeon(s) and Role: [...] PM EST Office [place] [address] Hollie Ambriz MD [facility] [place] [address] documented as of this encounter Procedures Procedure Name Priority Date/Time Associated Diagnosis Comments SPECIMEN TO PATHOLOGY Routine 08/05/2023 11:01 AM EDT SURGICAL PATHOLOGY REPORT Routine 08/05/2023 11:00 AM EDT Colonoscopy, Biopsy ([id number]) 08/05/2023 10:27 AM EDT Constipation, unspecified constipation type COLONOSCOPY Routine 08/05/2023 9:59 AM EDT documented in this encounter Results * Specimen to Pathology (08/05/2023 11:01 AM EDT) AP Specimen 08/05/2023 11:0 1 AM EDT 08/05/2023 11:01 AM EDT Narrative [facility] - 08/05/2023 11:01 AM EDT Specimen requisition ordered. ??Separate Pathology report to follow Jamar Hair MD PATHOLOGY/CYTOLO GY ORDERABLES [facility] [place] [address] * Surgical Pathology Report (08/05/2023 11:00 AM EDT) Final Diagnosis [id number] ? Location: 4T; EA11; A The signing pathologist has (i) examined the relevant preparation(s) for the specimen(s) and (ii) rendered or confirmed the diagnosis(es). . ?Surgical Pathology DIAGNOSIS A - Rectum r/o microscopic colitis, biopsy (Multiple): - ??Colonic mucosa within normal limits. CR-PX Electronically signed by: ?Jazmyne GIRALDO PhD, Courtney Verified: ??08/17/2023 16:08 ??Pathologist Performed at: ??-[facility] Dept. of Pathology, [place] [address] President And Chief Operating Officer: Frank Turpin MD, FCAP, ??CLIA Certificate: [id number] SPECIMEN(S) SUBMITTED A - rectum r/o microscopic colitis, biopsy (Multiple) CLINICAL INFORMATION 28-year-old female with chronic constipation SPECIMEN PROCESSING A - Labeled/Fixative : Rectum rule out microscopic colitis, formalin. Quantity/Size: Multiple, averaging 0.3 cm. Tissue Description: Soft, red tissues. Sections/Process ing: Submitted in toto ??in 2 cassettes labeled A1-A2. ??sns 08/17/2023 4:08 PM EDT [facility] GI Biopsy 08/05/2023 11:0 0 AM EDT 08/05/2023 11:00 AM EDT Jamar Hair MD PATHOLOGY/CYTOLO GY ORDERABLES [facility] [place] [address] * COLONOSCOPY (08/05/2023 9:59 AM EDT) COLONOSCOPY [facility] Endoscopy ___ Procedure Date: 08/05/2023 9:59 AM ? Patient Name: Tana Cavazos ? Date of : 1995 ? Age: 28 ? Order #: [id number] ? Instrument Name: [id number] ? ___ Procedure: ? Colonoscopy Indications: ? [...] Active and Recently Administered Medications Care Teams Assistant Program Manager Relationship Specialty Start Date End Date Lorna Bal APRN [address] [place] [address] PCP - General Family Medicine 05/27/18 documented as of this encounter
--- OUTSIDE RECORDS SUMMARY | 2024-01-05 18:22 | XMS_ITS | Encounter Summary ---
Author Organization [facility] [place] [address] Care Team Providers Care Global Product Manager Name Role Phone Lorna Bal APRN Primary Care Provider +1 -[phone] Encounter Details Date Type Department Care Team (Late st Contact Info) Description 01/29/2023 1:00 PM EDT Office [place] [address] Reji Macdonald MD [facility] [place] [place] [address] Spinal abscess Social History Tobacco Use Types [...] her postoperative care for planned operation and [place]. She is here with her caregivers but her mother is her legal guardian. She has been seen at [facility] been seen by the orthopedic team and infectious diseases for extended periods of time. It is unclear as to what the long-term plan was for management of thisbut eventually apparently she made it to [place] after referral by infectious disease and then subsequently was referred to [place]. At that point time she was seen [...] FIXATION performed by BARRERA OLIVER at [facility] MAIN OR PRO RECONSTRUC HIP SOCKET, RESEC FEM HEAD 08/15/2010 ??ACETABULOPLASTY (GIRDLESTONE), RESECTION FEMORAL HEAD, BILATERAL performed by BARRERA OLIVER [facility] MAIN OR PRO REMOVAL DEEP IMPLANT 08/15/2010 [...] at [facility] MAIN OR Social History Socioeconomic History Marital [...] [Transparent Dressings] Itching and Dermatitis Please use [id number] Cyclobenzaprine Other Reaction(s): Not available Penicillins Current [...] PM EST Office [place] [address] Hollie Ambriz MD [facility] [place] [address] documented as of this encounter Visit Diagnoses Diagnosis Spinal abscess Acute osteomyelitis, other specified site documented in this encounter Care Teams Global Product Manager Relationship Specialty Start Date End Date Lorna Bal APRN [address] [place] [address] PCP - General Family Medicine 05/27/18 documented as of this encounter
--- OUTSIDE RECORDS SUMMARY | 2024-01-05 18:22 | XMS_ITS | Encounter Summary ---
Author Organization [facility] [place] [address] Care Team Providers Care Secondary Education Professor Name Role Phone Lorna Bal APRN Primary Care Provider +1 -[phone] Reason for Referral * Diagnostic Test (Routine) - Closed Specialty Diagnoses / Procedures Referred By Contac t Referred To Contact Radiology Diagnoses Spinal abscess Procedures IR All Drainage Procedures IR All Biopsy Procedures Jamar Dasilva MD [facility] [place] [address] [place] [address] Referral ID Status Reason Start Date Expiration Date V isits Requested Visits Authorized [id number] Closed Specialty Service Requested 09/26/2022 03/28/2024 1 1 Encounter Details Date Type Department Care Team (Late st Contact Info) Description 09/26/2022 Orders [place] [address] Jamar Dasilav MD [facility] [place] [address] Spinal abscess Social History Tobacco [...] PM EST Office [place] [address] Hollie Ambriz MD [facility] [place] [address] documented as of this encounter Results * [...] present throughout the procedure. Jamar Dasilva MD [facility] IR ORDERABLES * AFB culture Back (09/26/2022 12:49 PM EDT) Acid Fast Bacilli Culture No Acid Fast Bacilli isolated [facility] Acid Fast Stain No Acid Fast Bacilli seen [facility] Back 09/26/2022 12:4 9 PM EDT 09/26/2022 2:05 PM EDT Narrative Resulting Agency Comment Spec In Lab Jamar Dasilva MD [facility] ORDERABLES [facility] [place] [address] documented in this encounter Visit Diagnoses Diagnosis Spinal abscess Acute osteomyelitis, other specified site Spinal abscess Acute osteomyelitis, other specified site documented in this encounter Care Teams Secondary Education Professor Relationship Specialty Start Date End Date Lorna Bal APRN [address] [place] [address] PCP - General Family Medicine 05/27/18 documented as of this encounter
--- OUTSIDE RECORDS SUMMARY | 2024-01-05 18:22 | XMS_ITS | Encounter Summary ---
Author Organization [facility] [place] [address] Care Team Providers Care Technical Architect Name Role Phone Lorna Bal APRN Primary Care Provider +1 -[phone] Encounter Details Date Type Department Care Team (Late st Contact Info) Description 04/24/2023 Telephone Infectious Disease at [facility] [place] [address] Meme Morataya Social History Tobacco Use Types [...] PM EST Office Visit [place] [address] Hollie Ambriz MD [facility] [place] [address] documented as of this encounter Visit Diagnoses Not on filedocumented in this encounter Care Teams Technical Architect Relationship Specialty Start Date End Date Lorna Bal, PRIVACY DIRECTOR [address] [place] [address] PCP - General Family Medicine 05/27/18 documented as of this encounter
--- OUTSIDE RECORDS SUMMARY | 2024-01-05 18:22 | XMS_ITS | Encounter Summary ---
Author Organization [facility] [place] [address] Care Team Providers Care Patient Relations Liaison Name Role Phone Lorna Bal APRN Primary Care Provider +1 -[phone] Encounter Details Date Type Department Care Team (Latest Contact Info) Description 03/27/2023 2:54 PM EST - 03/27/2023 11:59 PM EST Hospital En[place] [address] [place] [address] Spinal abscess Discharge Disposition: Home Social History Tobacco Use Types Packs/Day Years Used Date Smoking Tobacco: Never Smokeless Tobacco: Never Comments:NO SMOKERS IN THE H OME Alcohol Use Standard Drinks/Week Comments No 0 (1 standard drink = 0.6 oz pur e alcohol) [facility] Inpatient Questions Answer Date Recorded [...] PM EST Office [place] [address] Hollie Ambriz MD [facility] [place] [address] documented as of this encounter Procedures Procedure [...] who have questions, please contact the health home care administrator that requested your imaging first. ? Curt Dozier, Staff Physician Electronically Signed Final Report ?? 03/27/2023 03:36 pm Narrative 03/27/2023 3:37 PM EST Abdominal ? (Signed Final 03/27/2023 03:36 pm) PATIENT INFO: ID #: ? [id number] ?: ??[id number] (27 yrs)(F) Name: ? TANA SHELTON ?Visit Date: 03/27/2023 03:21 pm PERFORMED BY: Attending: ?Jacoby GONZALES MD, Curt Langston Performed By: ? Shelby Gardner RDMS Referred By: ?GABO BANDA Location: ? [place] [facility] Protocol - Abdominal ?[id number] Limited Survey Single Organ or Quadrant - [id number] INDICATIONS: Transaminitis ------ LIVER: ------ Right Lobe [...] 03/27/2023 03:36 pm) PATIENT INFO: ID #: [id number] : [id number] (27 yrs)(F) Name: TANA SHELTON Visit Date: 03/27/2023 03:21 pm PERFORMED BY: Attending: Jacoby GONZALES MD, Arthur L. Performed By: Shelby Gardner RDMS Referred By: GABO BANDA Location: [place] SERVICE(S) [facility] Hepat[facility] Protocol - Abdominal [id number] Limited Survey Single Organ or Quadrant - [id number] INDICATIONS: Transaminitis ------ LIVER: ------ Right Lobe [...] who have questions, please contact the health home care administrator that requested your imaging first. Curt Dozier, Staff Physician Electronically Signed Final Report 03/27/2023 03:36 pm Gabo Banda MD [facility] ORDERABL [facility] documented in this encounter Visit Diagnoses Diagnosis Spinal abscess Acute osteomyelitis, other specified site documented in this encounter Care Teams Patient Relations Liaison Relationship Specialty Start Date End Date Lorna Bal APRN [address] [place] [address] PCP - General Family Medicine 05/27/18 documented as of this encounter
--- OUTSIDE RECORDS SUMMARY | 2024-01-05 18:22 | XMS_ITS | Encounter Summary ---
Author Organization [facility] [place] [address] Care Team Providers Care Pipe Tester Name Role Phone Lorna Bal APRN Primary Care Provider +1 -[phone] Encounter Details Date Type Department Care Team (Late st Contact Info) Description 06/17/2023 Telephone [place] [address] Tobi Luna Social History Tobacco Use Types [...] Luna - 06/17/2023 10:02 AM EST Tana aCvazos [id number] Diagnosis/Indication: Chronic constipation and anemia Please review [...] hip issues You must have a responsible republican who will drive you to your procedure, stay on campus for the entire duration of your procedure, and drive you home from your procedure. Who will likely be your tour bus driver for the procedure? *Please Verify the [...] Office [place] [address] Hollie Ambriz MD [facility] [place] [address] documented as of this encounter Visit Diagnoses Not on filedocumented in this encounter Care Teams Pipe Tester Relationship Specialty Start Date End Date Lorna Bal APRN [address] [place] [address] PCP - General Family Medicine 05/27/18 documented as of this encounter
--- OUTSIDE RECORDS SUMMARY | 2024-01-05 18:22 | XMS_ITS | Encounter Summary ---
Author Organization [facility] Address [facility] [place] [address] Care Team Providers Care Domestic Laundry Worker Name Role Phone Lorna Bal APRN Primary Care Provider +1 -[phone] Encounter Details Date Type Department Care Team (Late st Contact Info) Description 04/29/2023 Notes [place] [address] George Tipton MD [facility] [place] [address] Social History Tobacco Use Types Packs/Day Years [...] from 04/[address] Augustin(Neurosurgeon, [facility]) and talked to medical doctor nuclear medicine. According to her the surgeon reviewed the [...] PM EST Office [place] [address] Hollie Ambriz MD [facility] [place] [address] documented as of this encounter Visit Diagnoses Not on filedocumented in this encounter Care Teams Domestic Laundry Worker Relationship Specialty Start Date End Date Lorna Bal APRN [address] [place] [address] PCP - General Family Medicine 05/27/18 documented as of this encounter
--- OUTSIDE RECORDS SUMMARY | 2024-01-05 18:23 | XMS_ITS | Encounter Summary ---
Author Organization [facility] [place] [address] Care Team Providers Care Profiling Machine Set Up Operator Name Role Phone Lorna Bal APRN Primary Care Provider +1 -[phone] Encounter Details Date Type Department Care Team (Late st Contact Info) Description 09/25/2022 Telephone [place] [address] Valentina Stanton Social History Tobacco Use Types [...] PM EST Office [place] [address] Hollie Ambriz MD [facility] DR [place] [address] documented as of this encounter Visit Diagnoses Not on filedocumented in this encounter Care Teams Profiling Machine Set Up Operator Relationship Specialty Start Date End Date Lorna Bal, FEED AND FARM MANAGEMENT ADVISER [address] [place] [address] PCP - General Family Medicine 05/27/18 documented as of this encounter
--- OUTSIDE RECORDS SUMMARY | 2024-01-05 18:23 | XMS_ITS | Encounter Summary ---
Author Organization [facility] [place] [address] Care Team Providers Care Boat Dock Operator Name Role Phone Lorna Bal APRN Primary Care Provider +1 -[phone] Encounter Details Date Type Department Care Team (Late st Contact Info) Description 09/24/2022 Telephone [place] [address] Valentina Stanton Social History Tobacco Use Types [...] PM EST Office Visit [place] [address] Hollie Ambriz MD [facility] [address] [place] [address] documented as of this encounter Visit Diagnoses Not on filedocumented in this encounter Care Teams Boat Dock Operator Relationship Specialty Start Date End Date Lorna Bal, HOME HEALTH SPECIALIST [address] [place] [address] PCP - General Family Medicine 05/27/18 documented as of this encounter
--- OUTSIDE RECORDS SUMMARY | 2024-01-05 18:23 | XMS_ITS | Encounter Summary ---
Author Organization [facility] [place] [address] Care Team Providers Care Alteration Hand Name Role Phone Lorna Bal APRN Primary Care Provider +1 -[phone] Encounter Details Date Type Department Care Team (Late st Contact Info) Description 09/08/2022 Telephone [place] [address] Sergey Keane MD [facility] [place] [address] Social History Tobacco Use Types Packs/Day Years [...] moving forward. Patient was recently seen at [facility] for a second opinion. I had the opportunity to speak with the attending physician Dr Patel on 09/03. At the time we discussed Mrs Cavazos clinical course and therapies provided here at [facility]. After our conversation she mentioned that she [...] PM EST Office [place] [address] Hollie Ambriz MD [facility] [place] [address] documented as of this encounter Visit Diagnoses Not on filedocumented in this encounter Care Teams Alteration Hand Relationship Specialty Start Date End Date Lorna Bal APRN [address] [place] [address] PCP - General Family Medicine 05/27/18 documented as of this encounter
--- OUTSIDE RECORDS SUMMARY | 2024-01-05 18:23 | XMS_ITS | Encounter Summary ---
Author Organization Formerly [facility], [facility] [place] [address] Care Team Providers Care Leather Lacer Name Role Phone Lorna Bal APRN Primary Care Provider +1 [phone] Reason for Referral * Diagnostic Test (Routine) [...] sequela Procedures IR Drain Check/Change/Remove Jamaal Jenkins, [facility] [place] [address] [facility] [place] [address] Referral ID Status Reason Start Date Expiration Date Visits Requested Visits Authorized [id number] Pending Review Specialty Service Requested 08/25/2022 02/26/2024 1 1 * Diagnostic Test (Routine) - New Request Specialty Diagnoses / Procedures Referred By Contac t Referred To Contact Radiology Diagnoses Spinal abscess Procedures IR Drain Check/Change/Remove Hank Nunez PA [facility] [place] [address] [place] [address] Referral ID Status Reason Start Date Expiration Date Visits Requested Visits Authorized [id number] New Request Specialty Service Requested 08/21/2022 02/21/2024 1 1 Reason for Visit * Diagnostic Test (Routine) - New Request Specialty Diagnoses / Procedures Referred By Contac t Referred To Contact Radiology Diagnoses Spinal abscess Procedures IR Drain Check/Change/Remove Hank Nunez PA [facility] [place] [address] [place] [address] Referral ID Status Reason Start Date Expiration Date Visits Requested Visits Authorized [id number] New Request Specialty Service Requested 08/21/2022 02/21/2024 1 1 Encounter Details Date Type Department Care Team (Latest Contact Info) Description 08/25/2022 12:57 PM EDT - 08/25/2022 11:59 PM EDT Hospital Encounter [place] [address] Piter Self MD [facility] [place] [address] Spinal abscess; Abscess; Contracture of left elbow; [...] is during regular office hours, please call [phone]. If it is after regular office hours, or on weekends or holidays, please call [phone] and ask to speak to the Handhole Machine Operator production generalist for Interventional Radiology. XX You have received [...] of : 1995 AGE: 27 y.o. Address: [address] [place] [address] Phone: [phone] (home) Mobile: Telephone Information: Referring Provider: Hank Nunez REASON FOR VISIT: Order Questions Answers Where will study be performed? [facility] Radiology [120] Reason for exam and [...] [Transparent Dressings] Itching and Dermatitis Please use [id number] ??? Penicillins Pertinent PMH: Patient Active Problem [...] dislodged and replaced on 07/24. Additional 8 Khmer drain placed into adjacent L2/L3 collection at [...] MD [facility] INTERVENTIONL RAD ??? IR ALL DRAINAGE PROCEDURES 07/04/2022 IR All Drainage Procedures 07/04/2022 Mich Martino MD [facility] INTERVENTIONL RAD ??? IR ALL DRAINAGE PROCEDURES 07/24/2022 IR All Drainage Procedures 07/24/2022 Anurag Kumar MD [facility] INTERVENTIONL RAD ??? IR DRAIN CHECK/CHANGE/REMOVE 07/01/2022 IR Drain Check/Change/Remove 07/01/2022 Jamaal Jenkins, DO [facility] INTERVENTIONL RAD ??? PRO APPLY OF HIP CASTS, TWO LEGS 08/15/2010 CAST APPLICATION, HIP SPICA, BOTH LEGS performed by BARRERA OLIVER at [facility] OR ? ? PRO I&D, POST SPINE, LUMB/SACR/LUMBOSAC N/A 05/20/2014 @I & D, OPEN, DEEP ABSCESS, LUMBAR, SACRAL, LUMBOSACRAL performed by Freddy Isbell MD at [facility] OR ? ? PRO I&D, POST SPINE, LUMB/SACR/LUMBOSAC N/A 05/26/2014 @I & D, OPEN, DEEP ABSCESS, LUMBAR, SACRAL, LUMBOSACRAL performed by Freddy Isbell MD at [facility] OR ??? PRO IMPACT TOOTH REMOV COMP BONY N/A 06/14/2018 SURGICAL EXTRACTIONS, REMOVAL OF IMPACTED TOOTH, COMPLETELY BONY (WRVU 1.93) performed by Keith Cotton MD at [facility] OSC ??? PRO OSTEOTOMY FEMUR SHAFT/SUPRACONDY 08/15/2010 ??OSTEOTOMY, FEMUR SHAFT OR SUPRACONDYLAR W/O FIXATION performed by BARRERA OLIVER at [facility] MAIN OR ??? PRO RECONSTRUC HIP SOCKET, RESEC FEM HEAD 08/15/2010 ??ACETABULOPLASTY (GIRDLESTONE), RESECTION FEMORAL HEAD, BILATERAL performed by BARRERA OLIVER [facility] MAIN OR ??? PRO REMOVAL DEEP IMPLANT 08/15/2010 REMOVAL IMPLANT, DEEP, BRUNO performed by BARRERA OLIVER at [facility] MAIN OR ??? PRO REMOVAL ERUPTED TOOTH WITH ELEVATION OF MUCOPERIOSTEAL FLAP N/A 06/14/2018 SURGICAL EXTRACTIONS REQUIRING ELEVATION OF MUCOPERIOSTEAL FLAP AND REMOVAL OF BONE OR SECTION OF TOOTH (WRVU 1.09) performed by Keith Cotton MD at [facility] OSC ??? PRO REMOVE INFUSN DEVICE/PUMP N/A 05/11/2014 REMOVAL OF SPINE INFUSION PUMP performed by Jamaal Samuel MD at [facility] MAIN OR ??? PRO REMOVE SPINAL CANAL CATHETER N/A 05/11/2014 REMOVAL OF INTRATHECAL OR EPIDURAL CATHETER performed by Jamaal Samuel MD at [facility] OR ??? PRO REPR, DURAL/CSF LEAK, NOT REQ LAMINECTOMY N/A 05/20/2014 @REPAIR DURAL\CSF LEAK,NOT REQUIRING LAMINECTOMY performed by Freddy Isbell MD at [facility] OR Medications: Current Outpatient Medications [...] PM EST Office Visit [place] [address] Hollie Ambriz MD [facility] DR [place] [address] documented as of this encounter Procedures Procedure [...] dislodged and replaced on 07/24. Additional 8 Khmer drain placed into adjacent L2/L3 collection at [...] throughout. ?? More Caudal Lumbar Drainage Catheter: Mine Analyst fluoroscopic images were obtained. ??Contrast was injected through the catheter and repeat fluoroscopic images were obtained. The drainage catheter was left in place. ??A sterile dressing was applied. ?? More Cranial Lumbar Drainage Catheter: Mine Analyst fluoroscopic images were obtained. ??Contrast was injected [...] mLs documented in this encounter Care Teams Leather Lacer Relationship Specialty Start Date End Date Lorna Bal APRN [address] [place] [address] PCP - General Family Medicine 05/27/18 documented as of this encounter
--- OUTSIDE RECORDS SUMMARY | 2024-01-05 18:23 | XMS_ITS | Encounter Summary ---
Author Organization [facility] Address [facility] [place] [address] Care Team Providers Care Jig Grinder Set Up Operator Name Role Phone Lorna Bal APRN Primary Care Provider +1 [phone] Encounter Details Date Type Department Care Team (Late st Contact Info) Description 08/07/2022 1:00 PM EDT TH Visit (TeleHealth) [place] [phone] Lilli Joy APRN [facility] [place] [address] Spinal abscess; Acute hematogenous osteomyelitis, unspecified site; [...] this encounter Progress Notes * Lilli Joy, CUSTOMS BROKERAGE MANAGER - 08/07/2022 1:00 PM EDT .. [...] [Transparent Dressings] Itching and Dermatitis Please use [id number] ??? Penicillins Physical Exam: Deferred Labs: Lab [...] PM EST Office [place] [address] Hollie Ambriz MD [facility] [place] [address] documented as of this encounter Visit Diagnoses [...] documented as of this encounter Care Teams Jig Grinder Set Up Operator Relationship Specialty Start Date End Date Lorna Bal APRN [address] [place] [address] PCP - General Family Medicine 05/27/18 documented as of this encounter
--- OUTSIDE RECORDS SUMMARY | 2024-01-05 18:23 | XMS_ITS | Encounter Summary ---
[place] [address] Care Team Providers Care Bilingual Speech Therapist Name Role Phone Lorna Bal APRN Primary Care Provider +1 [phone] Encounter Details Date Type Department Care Team [...] PM EST Office Visit [place] [phone] Hollie Ambriz MD [facility] [place] [address] documented as of this encounter Visit Diagnoses Not on filedocumented in this encounter Care Teams Bilingual Speech Therapist Relationship Specialty Start Date End Date Lorna Bal APRN [address] [place] [address] PCP - General Family Medicine 05/27/18 documented as of this encounter
--- OUTSIDE RECORDS SUMMARY | 2024-01-05 18:23 | XMS_ITS | Encounter Summary ---
Author Organization [facility] [place] [address] Care Team Providers Care Paster Supervisor Name Role Phone Lorna Bal APRN Primary Care Provider +1 -[phone] Encounter Details Date Type Department Care Team (Late st Contact Info) Description 08/15/2022 Telephone [place] [address] Neva Thorpe, RN Social History Tobacco Use [...] 08/15/2022 2:26 PM EDT Pictures received via [facility] of Tana's back wound. This [...] PM EST Office [place] [address] Hollie Ambriz MD [facility] [place] [address] documented as of this encounter Visit Diagnoses Not on filedocumented in this encounter Care Teams Paster Supervisor Relationship Specialty Start Date End Date Lorna Bal APRN [address] [place] [address] PCP - General Family Medicine 05/27/18 documented as of this encounter
--- OUTSIDE RECORDS SUMMARY | 2024-01-05 18:23 | XMS_ITS | Encounter Summary ---
Author Organization [place] [address] Care Team Providers Care Press Feeder Name Role Phone Lorna Bal APRN Primary Care Provider +1 [phone] Reason for Referral * Diagnostic Test (Routine) - New Request Specialty Diagnoses / Procedures Referred By Contac t Referred To Contact Radiology Diagnoses Spinal abscess Procedures IR Drain Check/Change/Remove Hank Nunez PA [facility] [place] [address] [place] [address] Referral ID Status Reason Start Date Expiration Date Visits Requested Visits Authorized [id number] New Request Specialty Service Requested 08/21/2022 02/21/2024 1 1 Encounter Details Date Type Department Care Team (Late st Contact Info) Description 08/21/2022 Orders [place] [address] [facility] [place] [address] Spinal abscess Social History Tobacco Use Types Packs/Day Years Used Date Smoking Tobacco: Never Smokeless Tobacco: Never Comments:NO SMOKERS IN THE H OME Alcohol Use Standard Drinks/Week Comments No 0 (1 standard drink = 0.6 oz pur e alcohol) [facility] Inpatient Questions Answer Date Recorded Does [...] Office Visit [place] [address] [facility] [place] [address] documented as of this encounter Results * [...] dislodged and replaced on 07/24. Additional 8 Tanzanian drain placed into adjacent L2/L3 collection at [...] throughout. ?? More Caudal Lumbar Drainage Catheter: Registered Dietician fluoroscopic images were obtained. ??Contrast was injected through the catheter and repeat fluoroscopic images were obtained. The drainage catheter was left in place. ??A sterile dressing was applied. ?? More Cranial Lumbar Drainage Catheter: Registered Dietician fluoroscopic images were obtained. ??Contrast was injected [...] Jenkins, was present throughout the procedure. Piter Slef MD IMG IR ORDERABLES documented in this [...] sequela documented in this encounter Care Teams Press Feeder Relationship Specialty Start Date End Date Lorna Bal, VARNISHING MACHINE OPERATOR [address] [place] [address] PCP - General Family Medicine 05/27/18 documented as of this encounter
--- OUTSIDE RECORDS SUMMARY | 2024-01-05 18:23 | XMS_ITS | Encounter Summary ---
Author Organization [facility] [place] [address] Care Team Providers Care Department Head College Or University Name Role Phone Lorna Bal APRN Primary Care Provider +1 [phone] Encounter Details Date Type Department Care Team (Late st Contact Info) Description 09/03/2022 Notes Only [place] [phone] Mesha Mckeon, RN Social History Tobacco Use [...] RN - 09/03/2022 11:59 PM EDT This appeals writer received called from patient's mom about concerns about her daughter's drains. She reported that they have stopped draining and was wondering how long we were keeping it in. I instructed her to call IR for a drain check. Mom verbalized understanding. She also stated that she took her to [place] for a second opinion. That doctor in [place] was concerned about pt and wanted a call back as well. This appeals writer sent inbasket and routed secretaries notes from the Doctor in [place] to Shawn Woodard. Mom is very concerned about her daughters infection. Her end date is on 09/04. documented in this encounter Plan of Treatment Upcoming Encounters Date Type Department Care Team (Late st Contact Info) Description 06/02/2024 12:30 PM EST Office [place] [address] Hollie Ambriz MD [facility] DR [place] [address] documented as of this encounter Visit Diagnoses Not on filedocumented in this encounter Care Teams Department Head College Or University Relationship Specialty Start Date End Date Lorna Bal APRN [address] [place] [address] PCP - General Family Medicine 05/27/18 documented as of this encounter
--- OUTSIDE RECORDS SUMMARY | 2024-01-05 18:23 | XMS_ITS | Encounter Summary ---
[place] [address] Care Team Providers Care Automatic Edger Name Role Phone Lorna Bal APRN Primary Care Provider +1 -[phone] Encounter Details Date Type Department Care Team [...] PM EST Office [place] [phone] Hollie Ambriz MD [facility] [place] [address] documented as of this encounter Visit Diagnoses Not on filedocumented in this encounter Care Teams Automatic Edger Relationship Specialty Start Date End Date Lorna Bal APRN [address] [place] [address] PCP - General Family Medicine 05/27/18 documented as of this encounter
--- OUTSIDE RECORDS SUMMARY | 2024-01-05 18:23 | XMS_ITS | Encounter Summary ---
Author Organization [facility] [place] [address] Care Team Providers Care Car Repairman Name Role Phone Lorna Bal APRN Primary Care Provider +1 -[phone] Encounter Details Date Type Department Care Team (Late st Contact Info) Description 08/07/2022 Telephone [place] [phone] Mesha Mckeon, RN Social History Tobacco Use [...] PM EST Office [place] [address] Hollie Ambriz MD [facility] [address] [place] [address] documented as of this encounter Visit Diagnoses Not on filedocumented in this encounter Additional Health Concerns Infection Onset Date Last Indicated Resolved Time Enterovirus / Rhinovirus 07/28/2022 07/28/2022 8:09 PM EDT documented as of this encounter Care Teams Car Repairman Relationship Specialty Start Date End Date Lorna Bal APRN [address] [place] [address] PCP - General Family Medicine 05/27/18 documented as of this encounter
--- OUTSIDE RECORDS SUMMARY | 2024-01-05 18:23 | XMS_ITS | Encounter Summary ---
Author Organization [facility] [place] [address] Care Team Providers Care Field Return Repairer Name Role Phone Lorna Bal APRN Primary Care Provider +1 [phone] Encounter Details Date Type Department Care Team (Late st Contact Info) Description 09/08/2022 Telephone Infectious [place] [phone] Valentina Stanton Social History Tobacco Use Types [...] EST Office Visit Infectious [place] [address] Hollie Ambriz MD [facility] [address] INFECTI[place] [address] documented as of this encounter Visit Diagnoses Not on filedocumented in this encounter Care Teams Field Return Repairer Relationship Specialty Start Date End Date Lorna Bal, BUSINESS ASST [address] [place] [address] PCP - General Family Medicine 05/27/18 documented as of this encounter
--- OUTSIDE RECORDS SUMMARY | 2024-01-05 18:23 | XMS_ITS | Encounter Summary ---
[place] [address] Care Team Providers Care Car Wash Supervisor Name Role Phone Lorna Bal APRN Primary Care Provider +1 -[phone] Encounter Details Date Type Department Care Team (Latest Contact Info) Description 08/11/2022 2:40 PM EDT Laboratory Appointment Lab [place] [address] Spinal abscess; Bacteremia; E coli infection; Soft [...] PM EST Office Visit [facility] Disease at [facility] [place] [address] Hollie Ambriz MD [facility] INFECTIOUS [place] [address] documented as of this encounter Procedures Procedure [...] 2:53 PM EDT) Neutrophil % 66.1 % [facility] Neutrophil Absolute 4.09 1.70 - 6.10 x10(3)/[facility] Lymph % 26.8 % [facility] Lymphocytes Abs 1.7 0.9 - 3.2 x10(3)/[facility] LABOR[facility] Monocyte % 5.7 % [facility] Monocyte Abs 0.4 0.3 - 0.9 x10(3)/[facility] LABOR[facility]ORY Eos % 1.1 % [facility] LABORATORY Eosinophils Abs 0.1 0.0 - 0.4 x10(3)/[facility] LABOR[facility]ORY Basophil % 0.3 % [facility] ITAL LABORATORY Baso Absolute 0.0 0.0 - 0.1 x10(3)/mcL [facility] Immature Gran % 0.00 % [facility] Comment: Immature granulocytes(IG's)percentage and absolute count will include metamyelocytes, myelocytes, and promyelocytes. Blood smears from CBCs yielding IG's will be scanned manually for concordance. If this scan disagrees with the automated IG or if promyelocytes are noted, a manual differential will be performed. Immature Gran Absolute 0.00 0.00 - 0.04 x10(3)/[facility] Blood 08/11/2022 2:53 PM EDT 08/11/2022 3:21 PM EDT Narrative Resulting Agency Comment Spec In Lab Jamaal Estrada MD HEMATOLOGY ORDERABL ES [facility] [place] [address] * (ABNORMAL) Hemogram (08/11/2022 2:53 PM EDT) White Blood Cell 6.2 4.0 - 9.5 x10(3)/mc L [facility] Red Blood Cell 4.81 4.00 - 5.21 x10(6)/mc L [facility] Hemoglobin 12.1 11.7 - 15.5 g/dL [facility] Hematocrit 37.4 35.7 - 45.8 % [facility] Mean Cell Volume 77.8(L) 82.6 - 94.4 fL [facility] Mean Cell Hemoglobin 25.2(L) 27.1 - 32.0 pg [facility] Mean Cell Hemoglobin Concentration 32.4 31.7 - 35.0 g/dL [facility] Platelet 387(H) 145 - 357 x10(3)/mc L [facility] RDW Standard Deviation 50.0(H) 37.0 - 46.0 fL [facility] RDW coefficient of variation 17.9(H) 11.5 - 14.1 % [facility] Mean Platelet Volume 9.6 7.6 - 12.9 fL [facility] NRBC% auto 0.0 % [facility] ITAL LABORATORY NRBC Absolute 0.000 0.000 - 0.000 x10(3)/mc L [facility] Blood 08/11/2022 2:53 PM EDT 08/11/2022 3:21 PM EDT Narrative Resulting Agency Comment Spec In Lab Jamaal Estrada MD HEMATOLOGY ORDERABL ES [facility] [place] [address] * (ABNORMAL) Comprehensive metabolic panel (non-fasting) (08/11/2022 2:53 PM EDT) Glucose 75 65 - 199 mg/dL [facility] Comment:Diabetes: >=200 mg/d L plus symptoms Blood Urea Nitrogen 9 8 - 18 mg/dL [facility] Creatinine 0.25(L) 0.70 - 1.20 mg/dL [facility] Sodium 141 135 - 145 mmol/L [facility] Potassium 4.0 3.5 - 5.0 mmol/L [facility] Comment: Please note: ??Patients with WBC >100,000 may have falsely elevated Potassium levels. ??For accurate Potassium quantification in these patients send serum separator tube (gold top) for subsequent determinations. ??Contact the Clinical Chemistry Laboratory if there are any questions. Chloride 105 98 - 107 mmol/L [facility] Carbon Dioxide 24 22 - 31 mmol/L [facility] Anion Gap 12 5 - 15 mmol/L [facility] Calcium 9.4 8.5 - 10.5 mg/dL [facility] Protein, Total 8.0 6.1 - 8.0 g/dL [facility] Albumin 4.2 3.2 - 5.2 g/dL [facility] Aspartate Aminotransferase 19 0 - 30 unit/L [facility] Alanine Aminotransferase 26 0 - 30 unit/L [facility] Alkaline Phosphatase 211(H) 35 - 105 unit/L [facility] Bilirubin, Total <0.2(L) 0.2 - 1.3 mg/dL [facility] Est Glomerular Filtration Rate 154 >=60 mL/min/1. 73 m?? [facility] Comment: This patient's estimated GFR was [...] MD CHEMISTRY ORDERABLE S Performing Organization Address City/[facility]/ZIP Co de Phone Number [facility] [place] [address] * (ABNORMAL) CRP, acute inflammation (08/11/2022 2:53 PM EDT) C-Reactive Protein 45.8(H) <=4.9 mg/L [facility] Blood 08/11/2022 2:53 PM EDT 08/11/2022 3:21 PM EDT Narrative Resulting Agency Comment Spec In Lab Jamaal Estrada MD CHEMISTRY ORDERABLE S [facility] [place] [address] documented in this encounter Visit Diagnoses Diagnosis Spinal abscess Acute osteomyelitis, other specified site Bacteremia E coli infection Other and unspecified Escherichia coli (E. coli) Soft tissue abscess Cellulitis and abscess of other specified site Muscle abscess Other disorder of muscle, ligament, and fascia documented in this encounter Care Teams Car Wash Supervisor Relationship Specialty Start Date End Date Lorna Bal APRN [address] [place] [address] PCP - General Family Medicine 05/27/18 documented as of this encounter
--- OUTSIDE RECORDS SUMMARY | 2024-01-05 18:23 | XMS_ITS | Encounter Summary ---
[place] [address] Care Team Providers Care Spot Man Name Role Phone Lorna Bal APRN Primary Care Provider +1 [phone] Encounter Details Date Type Department Care Team [...] PM EST Office [place] [phone] Hollie Ambriz MD [facility] [place] [address] documented as of this encounter Visit Diagnoses Not on filedocumented in this encounter Care Teams Spot Man Relationship Specialty Start Date End Date Lorna Bal APRN [address] [place] [address] PCP - General Family Medicine 05/27/18 documented as of this encounter
--- OUTSIDE RECORDS SUMMARY | 2024-01-05 18:23 | XMS_ITS | Encounter Summary ---
Author Organization [facility] [place] [address] Care Team Providers Care Cafe Attendant Name Role Phone Lorna Bal APRN Primary Care Provider +1 -[phone] Reason for Referral * Diagnostic Test (Routine) - Closed Specialty Diagnoses / Procedures Referred By Contac t Referred To Contact Radiology Diagnoses Abscess Procedures CT Lumbar Spine w [place] [address] [facility] [place] [address] Referral ID Status Reason Start Date Expiration Date V isits Requested Visits Authorized [id number] Closed Specialty Service Requested 08/12/2022 02/12/2024 1 1 Reason for Visit * Diagnostic Test (Routine) - Closed Specialty Diagnoses / Procedures Referred By Contac t Referred To Contact Radiology Diagnoses Abscess Procedures CT Lumbar Spine [place] [address] [facility] [place] [address] Referral ID Status Reason Start Date Expiration Date V isits Requested Visits Authorized [id number] Closed Specialty Service Requested 08/12/2022 02/12/2024 1 1 Encounter Details Date Type Department Care Team (Latest Contact Info) Description 08/13/2022 8:33 AM EDT - 08/13/2022 11:59 PM EDT Hospital [place] [address] [place] [address] Abscess Discharge Disposition: Home Social [...] PM EST Office Visit Infectious Disease at [facility] [place] [address] Hollie Ambriz MD [facility] [place] [address] documented as of this encounter Procedures Procedure [...] questions please contact the health critical care unit nurse that requested your imaging first. ? [...] have questions please contactthe health critical care unit nurse that requested your imaging first. Jamshid Collins MD IM CT ORDERABLES documented [...] mLs documented in this encounter Care Teams Cafe Attendant Relationship Specialty Start Date End Date Lorna Bal APRN [address] [place] [address] PCP - General Family Medicine 05/27/18 documented as of this encounter
--- OUTSIDE RECORDS SUMMARY | 2024-01-05 18:23 | XMS_ITS | Encounter Summary ---
Author Organization [facility] [place] [address] Care Team Providers Care Retread Supervisor Name Role Phone Lorna Bal APRN Primary Care Provider +1 -[phone] Encounter Details Date Type Department Care Team (Late st Contact Info) Description 08/06/2022 Telephone [place] [address] Halima García Social History Tobacco Use Types Packs/Day Years Used Date Smoking Tobacco: Never Smokeless Tobacco: Never Comments:NO SMOKERS IN THE H OME Alcohol Use Standard Drinks/Week Comments No 0 (1 standard drink = 0.6 oz pur e alcohol) [facility] Inpatient Questions Answer Date Recorded [...] - 08/06/2022 8:35 AM EDT Shonna from [facility] called. Pt's home healthcare orders need to be restarted and orders need to be placed for weekly lab draw and drainage care. documented in this encounter Plan of Treatment Upcoming Encounters Date Type Department Care Team (Late st Contact Info) Description 06/02/2024 12:30 PM EST Office [place] [address] Hollie Ambriz MD [facility] [place] [address] documented as of this encounter Visit Diagnoses Not on filedocumented in this encounter Additional Health Concerns Infection Onset Date Last Indicated Resolved Time Enterovirus / Rhinovirus 07/28/2022 07/28/2022 8:09 PM EDT documented as of this encounter Care Teams Retread Supervisor Relationship Specialty Start Date End Date Lorna Bal APRN [address] [place] [address] PCP - General Family Medicine 05/27/18 documented as of this encounter
--- OUTSIDE RECORDS SUMMARY | 2024-01-05 18:23 | XMS_ITS | Encounter Summary ---
[place] [address] Care Team Providers Care Pipe Inspector Name Role Phone Lorna Bal APRN Primary Care Provider +1 [phone] Reason for Referral * Consultation (Routine) - Closed Specialty Diagnoses / Procedures Referred By Contac t Referred To Contact [facility] Diagnoses Spinal abscess Soft tissue abscess Bacteremia Sergey Keane MD [facility] [place] [address] [facility] [place] [address] Referral ID Status Reason Start Date Expiration Date V isits Requested Visits Authorized [id number] Closed Consult, Test & Treat 08/13/2022 08/13/2023 1 1 Encounter Details Date Type Department Care Team (Late st Contact Info) Description 08/13/2022 11:30 AM EDT Office [place] [address] Sergey Keane MD [facility] [place] [address] Spinal abscess; Soft tissue abscess; Bacteremia; custodial 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 Social History Tobacco [...] 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 and??prior bilateral [place]??in??2010 admitted to [facility] [place] [facility]??for evaluation of??increasing redness [...] drainage from the same area??she returned to [facility] on 07/22, a repeated CT [...] needed Sergey Doan MD Infectious Disease [facility] 08/18/2022 Chronic suppression Behaving as infection [...] PM EST Office [place] [address] Hollie Ambriz MD [facility] [place] [address] Scheduled Referrals Name Type Priority Associated Diagnoses Order Schedule Referral to Orthopaedics Outpatient Referral Routine Spinal abscess Soft tissue abscess Bacteremia Ordered: 08/13/2022 documented as of this encounter Visit Diagnoses Diagnosis Spinal abscess Acute osteomyelitis, other specified site Soft tissue abscess Cellulitis and abscess of other specified site 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
--- OUTSIDE RECORDS SUMMARY | 2024-01-05 18:23 | XMS_ITS | Encounter Summary ---
Author Organization [facility] [place] [address] Care Team Providers Care Information Resource Consultant Name Role Phone Lorna Bal APRN Primary Care Provider [phone] [phone] Encounter Details Date Type Department Care Team (Late st Contact Info) Description 09/24/2022 Telephone [place] [address] Sergey Keane MD [facility] [place] [address] Social History Tobacco Use Types Packs/Day Years [...] stable to go to her appt in [place] tomorrow with NSG to show them the lesions and see if they can do something about it. I discussed I had limited ability to assist and that a change of antibiotics without new cultures and drainage was not a great idea and the I would be happy to work with either IR here or NSG in [place] to assist. Discussed warning signs to present to the ED. I suspect she just has continued inflammation of the hardware and now that the drain is out it is reaccumulating. Likely will need a chronic drain or surgery. This will be up to NSG on [place]. * Telephone Encounter - Maryanne Sarabia RN [...] Tana has a neurosurgery appt tomorrow in [place]. Mom can be reached at [phone] until 5 pm. Then after 5 pm call Fannie Villarreal [phone]. Note forwarded to Dr. Gerber Dasilva and Dr. Sergey Doan. documented in this encounter Plan of Treatment Upcoming Encounters Date Type Department Care Team (Late st Contact Info) Description 06/02/2024 12:30 PM EST Office [place] [address] Hollie Ambriz MD [facility] [place] [address] documented as of this encounter Visit Diagnoses Not on filedocumented in this encounter Care Teams Information Resource Consultant Relationship Specialty Start Date End Date Lorna Bal APRN [address] [place] [address] PCP - General Family Medicine 05/27/18 documented as of this encounter
--- OUTSIDE RECORDS SUMMARY | 2024-01-05 18:23 | XMS_ITS | Encounter Summary ---
Author Organization [facility] Address [facility] [place] [address] Care Team Providers Care Gun Number Name Role Phone Lorna Bal APRN Primary Care Provider [phone] -[phone] Encounter Details Date Type Department Care Team (Late st Contact Info) Description 09/24/2022 [place] [address] Hank Nunez PA [facility] [place] [address] Social History Tobacco Use Types Packs/Day Years [...] Patient Name: Tana Cavazos : 1995 MR#: [id number] Spoke with Anderson regarding concerns regarding overall plan for Tana. Recommended she attend her appointments in [place] in hope of guiding toward more definitive [...] PM EST Office [place] [address] Hollie Ambriz MD [facility] [place] [address] documented as of this encounter Visit Diagnoses Not on filedocumented in this encounter Care Teams Gun Number Relationship Specialty Start Date End Date Lorna Bal APRN [address] [place] [address] PCP - General Family Medicine 05/27/18 documented as of this encounter
--- OUTSIDE RECORDS SUMMARY | 2024-01-05 18:23 | XMS_ITS | Encounter Summary ---
[place] [address] Care Team Providers Care Tobacco Roller Name Role Phone Lorna Bal APRN Primary Care Provider [phone] -[phone] Encounter Details Date Type Department Care Team (Late st Contact Info) Description 08/25/2022 Transcribe [place] [phone] Lorna Bal APRN [address] [place], [place] [address] Social History Tobacco Use Types Packs/Day Years [...] PM EST Office [place] [address] Hollie Ambriz MD [facility] [place] [address] documented as of this encounter Visit Diagnoses Not on filedocumented in this encounter Care Teams Tobacco Roller Relationship Specialty Start Date End Date Lorna Bal APRN [address] [place] [address] PCP - General Family Medicine 05/27/18 documented as of this encounter
--- OUTSIDE RECORDS SUMMARY | 2024-01-05 18:23 | XMS_ITS | Encounter Summary ---
[place] [address] Care Team Providers Care Information Systems Planner Name Role Phone Lorna Bal APRN Primary Care Provider +1 -[phone] Encounter Details Date Type Department Care Team (Latest Contact Info) Description 08/25/2022 4:30 PM EDT Laboratory Appointment Lab [address] [address] Spinal abscess; Bacteremia; E coli infection; Soft [...] PM EST Office [place] [address] Hollie Ambriz MD [facility] [place] [address] documented as of this encounter Visit Diagnoses Diagnosis Spinal abscess Acute osteomyelitis, other specified site Bacteremia E coli infection Other and unspecified Escherichia coli (E. coli) Soft tissue abscess Cellulitis and abscess of other specified site Muscle abscess Other disorder of muscle, ligament, and fascia documented in this encounter Care Teams Information Systems Planner Relationship Specialty Start Date End Date Lorna Bal APRN [address] [place] [address] PCP - General Family Medicine 05/27/18 documented as of this encounter
--- OUTSIDE RECORDS SUMMARY | 2024-01-05 18:23 | XMS_ITS | Encounter Summary ---
Author Organization [facility] [place] [address] Care Team Providers Care Hair Sample Matcher Name Role Phone Lorna Bal APRN Primary Care Provider +1 -[phone] Encounter Details Date Type Department Care Team (Late st Contact Info) Description 08/15/2022 Telephone [place] [address] Shawn Woodard MD [facility] [place] [address] Social History Tobacco Use Types Packs/Day Years [...] to answer her earlier call to the [facility] nursing group with concerns. She was both confused after her clinic appointment of two days ago, when she feels that she received two different messages from the fellow and attending she saw (one suggesting there may not even olmedo infection and the other that Tana might need to be on antibiotics for life); and also concernedabout a barrow of erythema which she had noted around [...] may not be curable (hence discussion about long chain quiller tender antibiotics), especially with the remaining screw, which [...] Office [place] [address] Hollie Ambriz MD [facility] [place] [address] documented as of this encounter Visit Diagnoses Not on filedocumented in this encounter Care Teams Hair Sample Matcher Relationship Specialty Start Date End Date Lorna Bal APRN [address] [place] [address] PCP - General Family Medicine 05/27/18 documented as of this encounter
--- OUTSIDE RECORDS SUMMARY | 2024-01-05 18:23 | XMS_ITS | Encounter Summary ---
Author Organization [facility] [place] [address] Care Team Providers Care Media Marketing Manager Name Role Phone Lorna Bal APRN Primary Care Provider +1 -[phone] Encounter Details Date Type Department Care Team (Late st Contact Info) Description 09/03/2022 Telephone [place] [address] Halima García Social History Tobacco Use Types [...] return call to Dr. Ila Hadley from [facility]. Requesting a call back to discuss pt dx, 2nd option and how she can best assist with the pt's care. Dr. Hadley [phone]. Thanks Halima documented in this encounter Plan of Treatment Upcoming Encounters Date Type Department Care Team (Late st Contact Info) Description 06/02/2024 12:30 PM EST Office [place] [address] Hollie Ambriz MD [facility] [place] [address] documented as of this encounter Visit Diagnoses Not on filedocumented in this encounter Care Teams Media Marketing Manager Relationship Specialty Start Date End Date Lorna Bal APRN [address] [place] [address] PCP - General Family Medicine 05/27/18 documented as of this encounter
--- OUTSIDE RECORDS SUMMARY | 2024-01-05 18:23 | XMS_ITS | Encounter Summary ---
[place] [address] Care Team Providers Care Restaurant And Bar Manager Name Role Phone Lorna Bal APRN Primary Care Provider +1 -[phone] Encounter Details Date Type Department Care Team (Latest Contact Info) Description 08/13/2022 Travel Social History Tobacco Use Types Packs/Day Years Used Date Smoking Tobacco: Never Smokeless Tobacco: Never Comments:NO SMOKERS IN THE H OME Alcohol Use Standard Drinks/Week Comments No 0 (1 standard drink = 0.6 oz pur e alcohol) [facility] Inpatient Questions Answer Date Recorded [...] Office [place] [address] Hollie Ambriz MD [facility] [place] [address] documented as of this encounter Visit Diagnoses Not on filedocumented in this encounter Care Teams Restaurant And Bar Manager Relationship Specialty Start Date End Date Lorna Bal APRN [address] [place] [address] PCP - General Family Medicine 05/27/18 documented as of this encounter
--- OUTSIDE RECORDS SUMMARY | 2024-01-05 18:23 | XMS_ITS | Encounter Summary ---
Author Organization [facility] [place] [address] Care Team Providers Care Artifacts Conservator Name Role Phone Lorna Bal APRN Primary Care Provider +1 -[phone] Encounter Details Date Type Department Care Team (Late st Contact Info) Description 08/19/2022 Telephone [place] [address] Lilli Joy APRN [facility] [place] [address] Social History Tobacco Use Types Packs/Day Years [...] Notes * Telephone Encounter - Lilli Joy, FURNITURE REPAIRER - 08/19/2022 8:59 PM EDT S: Received [...] PM EST Office Visit [place] [address] Hollie Ambriz MD [facility] [place] [address] documented as of this encounter Visit Diagnoses Not on filedocumented in this encounter Care Teams Artifacts Conservator Relationship Specialty Start Date End Date Lorna Bal APRN [address] [place] [address] PCP - General Family Medicine 05/27/18 documented as of this encounter
--- OUTSIDE RECORDS SUMMARY | 2024-01-05 18:23 | XMS_ITS | Encounter Summary ---
Author Organization [place] [address] Care Team Providers Care Ream Cutter Name Role Phone Lorna Bal APRN Primary Care Provider +1 -[phone] Encounter Details Date Type Department Care Team (Latest Contact Info) Description 08/25/2022 Transcribe [place] [address] Lorna Bal APRN [address] [place], [place] [id number] Escherichia coli septicemia; Intraspinal abscess; Spinal cord [...] PM EST Office Visit [place] [address] Hollie Ambriz MD [facility] [address] [place] [address] documented as of this encounter Visit Diagnoses Diagnosis Escherichia coli septicemia Septicemia due to Escherichia coli (E. coli) Intraspinal abscess Spinal cord abscess Acute osteomyelitis, other specified site documented in this encounter Care Teams Ream Cutter Relationship Specialty Start Date End Date Lorna Bal APRN [address] [place] [address] PCP - General Family Medicine 05/27/18 documented as of this encounter
--- OUTSIDE RECORDS SUMMARY | 2024-01-05 18:23 | XMS_ITS | Encounter Summary ---
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 I had an extensive conversation with [facility] provider regarding patient's clinical course at and [...] for drain check and spine surgery at [facility] for possible surgical Options. They would like to continue receiving ID care at [facility] at least until surgical options are explored at outside institution. Plan Based on patient clinical presentation, review of data and chart my plan is as follows: -Continue doxycycline 100 mg PO BID -Avoid sunlight exposure while on doxyxycline -Pending evaluation by surgery at [facility], at that point they will decide if they continue care at or will see ID at other institution -Alarm signs were provided, come to the ED, call the office or 911 if initial symptoms return, fever, chills, associated with nausea, vomiting profuse diarrhea, confusion decrease urinary volumes Case discussed with Dr. 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
--- OUTSIDE RECORDS SUMMARY | 2024-01-05 18:23 | XMS_ITS | Encounter Summary ---
Author Organization [facility] [place] [address] Care Team Providers Care Human Service Worker Name Role Phone Lorna Bal APRN Primary Care Provider +1 -[phone] Encounter Details Date Type Department Care Team (Late st Contact Info) Description 09/25/2022 Telephone [place] [phone] Jamar Dasilva MD [facility] [place] [address] Social History Tobacco Use Types Packs/Day Years [...] status. Tana saw her neurosurgeon today in [place]. He feels that her symptoms are an allergic reaction to the current abx and requests that the abx be changed. The neurosurgeon said that they need to go in and remove a screw and clean out the area around the meredith in Tana's back. They do not want to do this at [facility] as it will require a plastic surgeon to close up due to Tana's skin being compromised. Javed relays that the neurosurgeon is trying to arrange surgery in [place] where a plastic surgeon is available. The [...] went over 70 she needed to go [facility] ED. Should she do that? No fever and WBC is normal. #4- Can Dr. Dasilva help to schedule an appt with radiology to have the drains put back in? documented in this encounter Plan of Treatment Upcoming Encounters Date Type Department Care Team (Late st Contact Info) Description 06/02/2024 12:30 PM EST Office Visit [place] [address] Hollie Ambriz MD [facility] [place] [address] documented as of this encounter Visit Diagnoses Not on filedocumented in this encounter Care Teams Human Service Worker Relationship Specialty Start Date End Date Lorna Bal APRN [address] [place] [address] PCP - General Family Medicine 05/27/18 documented as of this encounter
--- OUTSIDE RECORDS SUMMARY | 2024-01-05 18:23 | XMS_ITS | Encounter Summary ---
[place] [address] Care Team Providers Care Drink Mixer Name Role Phone Lorna Bal APRN Primary Care Provider +1 -[phone] Reason for Referral * Diagnostic Test (Routine) - New Request Specialty Diagnoses / Procedures Referred By Contac t Referred To Contact Radiology Diagnoses Spinal abscess Procedures IR Drain Check/Change/Remove Lucho Burciaga MD [facility] [place] [address] [place] [address] Referral ID Status Reason Start Date Expiration Date Visits Requested Visits Authorized [id number] New Request Specialty Service Requested 07/24/2022 01/25/2024 1 1 Reason for Visit * Diagnostic Test (Routine) - New Request Specialty Diagnoses / Procedures Referred By Contac t Referred To Contact Radiology Diagnoses Spinal abscess Procedures IR Drain Check/Change/Remove Lucho Burciaga MD [facility] [place] [address] [place] [address] Referral ID Status Reason Start Date Expiration Date Visits Requested Visits Authorized [id number] New Request Specialty Service Requested 07/24/2022 01/25/2024 1 1 Encounter Details Date Type Department Care Team (Latest Contact Info) Description 08/11/2022 11:53 AM EDT - 08/11/2022 11:59 PM EDT [place] [address] Anurag Kumar MD [facility] [place] [address] Spinal abscess Discharge Disposition: Home [...] is during regular office hours, please call [phone]. If it is after regular office hours, or on weekends or holidays, please call [phone] and ask to speak to the Nitrating Acid Mixer retail salesperson for Interventional Radiology. XX You have received [...] : 1995 AGE: 27 y.o. Address: [address] [place] [address] Phone: [phone] (home) Mobile: Telephone Information: Referring Provider: Lucho C Stoner REASON FOR VISIT: Order Questions Answers Where will study be performed? [facility] Radiology [120] Reason for exam and clinical history: Sacral and L2-L3 soft tissuel fluid collections Is the patient ? No Is the patient on anticoagulant / antiplatelet therapy ? No Allergies Allergen Reactions ??? Fluoxetine Other (See Comments) HIVES, HEART RACES ??? Tegaderm [Transparent Dressings] Itching and Dermatitis Please use [id number] ??? Penicillins Pertinent PMH: Patient Active Problem [...] Questions Answers Where will study be performed? [facility] Radiology [120] Reason for exam and clinical [...] All Drainage Procedures 06/25/2022 Mich Martino MD [facility] INTERVENTIONL RAD ??? IR ALL DRAINAGE PROCEDURES 07/04/2022 IR All Drainage Procedures 07/04/2022 Mich Martino MD [facility] INTERVENTIONL RAD ??? IR ALL DRAINAGE PROCEDURES 07/24/2022 IR All Drainage Procedures 07/24/2022 Anurag Kumar MD [facility] INTERVENTIONL RAD ??? IR DRAIN CHECK/CHANGE/REMOVE 07/01/2022 IR Drain Check/Change/Remove 07/01/2022 Jamaal Jenkins, DO [facility] INTERVENTIONL RAD ??? PRO APPLY OF HIP CASTS, TWO LEGS 08/15/2010 CAST APPLICATION, HIP SPICA, BOTH LEGS performed by BARRERA OLIVER at [facility] MAIN OR ? ? PRO I&D, POST SPINE, LUMB/SACR/LUMBOSAC N/A 05/20/2014 @I & D, OPEN, DEEP ABSCESS, LUMBAR, SACRAL, LUMBOSACRAL performed by Freddy Isbell MD at [facility] OR ? ? PRO I&D, POST SPINE, LUMB/SACR/LUMBOSAC N/A 05/26/2014 @I & D, OPEN, DEEP ABSCESS, LUMBAR, SACRAL, LUMBOSACRAL performed by Freddy Isbell MD at [facility] MAIN OR ??? PRO IMPACT TOOTH REMOV COMP BONY N/A 06/14/2018 SURGICAL EXTRACTIONS, REMOVAL OF IMPACTED TOOTH, COMPLETELY BONY (WRVU 1.93) performed by Keith Cotton MD at [facility] OSC ??? PRO OSTEOTOMY FEMUR SHAFT/SUPRACONDY 08/15/2010 ??OSTEOTOMY, FEMUR SHAFT OR SUPRACONDYLAR W/O FIXATION performed by BARRERA OLIVER at [facility] MAIN OR ??? PRO RECONSTRUC HIP SOCKET, RESEC FEM HEAD 08/15/2010 ??ACETABULOPLASTY (GIRDLESTONE), RESECTION FEMORAL HEAD, BILATERAL performed by BARRERA OLVIER [facility] OR ??? PRO REMOVAL DEEP IMPLANT 08/15/2010 REMOVAL IMPLANT, DEEP, BRUNO performed by BARRERA OLIVER at [facility] OR ??? PRO REMOVAL ERUPTED TOOTH WITH ELEVATION OF MUCOPERIOSTEAL FLAP N/A 06/14/2018 SURGICAL EXTRACTIONS REQUIRING ELEVATION OF MUCOPERIOSTEAL FLAP AND REMOVAL OF BONE OR SECTION OF TOOTH (WRVU 1.09) performed by Keith Cotton MD at [facility] OSC ??? PRO REMOVE INFUSN DEVICE/PUMP N/A 05/11/2014 REMOVAL OF SPINE INFUSION PUMP performed by Jamaal Samuel MD at [facility] MAIN OR ??? PRO REMOVE SPINAL CANAL CATHETER N/A 05/11/2014 REMOVAL OF INTRATHECAL OR EPIDURAL CATHETER performed by Jamaal Samuel MD at [facility] MAIN OR ??? PRO REPR, DURAL/CSF LEAK, NOT REQ LAMINECTOMY N/A 05/20/2014 @REPAIR DURAL\CSF LEAK,NOT REQUIRING LAMINECTOMY performed by Freddy Isbell MD at [facility] MAIN OR Social History and Habits: Social [...] PM EST Office [place] [address] Hollie Ambriz MD [facility] DR [place] [address] documented as of this encounter Procedures Procedure [...] mg documented in this encounter Care Teams Drink Mixer Relationship Specialty Start Date End Date Lorna Bal APRN [address] [place] [id number] PCP - General Family Medicine 05/27/18 documented as of this encounter
--- OUTSIDE RECORDS SUMMARY | 2024-01-05 18:23 | XMS_ITS | Encounter Summary ---
Author Organization [facility] [place] [address] Care Team Providers Care Sales Support Specialist Name Role Phone Lorna Bal APRN Primary Care Provider +1 [phone] Reason for Referral * Home Health Care (Routine) - Denied Specialty Diagnoses / Procedures Referred By Contac t Referred To Contact Diagnoses Spinal abscess [place] [address] [facility] [address] [place] [phone] Referral ID Status Reason Start Date Expiration Date V isits Requested Visits Authorized [id number] Denied Consult, Test & Treat 08/06/2022 08/06/2023 999 0 Encounter Details Date Type Department Care Team (Late st Contact Info) Description 08/06/2022 [place] [address] Curt Torres MD [place], [place] [id number] Spinal abscess Social History Tobacco Use Types [...] PM EST Office [place] [address] Hollie Ambriz MD [facility] [place] [address] Scheduled Referrals Name Type Priority Associated Diagnoses [...] documented as of this encounter Care Teams Sales Support Specialist Relationship Specialty Start Date End Date Lorna Bal APRN [address] [place] [address] PCP - General Family Medicine 05/27/18 documented as of this encounter
--- OUTSIDE RECORDS SUMMARY | 2024-01-05 18:23 | XMS_ITS | Encounter Summary ---
Author Organization [place] [address] Care Team Providers Care Refund Specialist Name Role Phone Lorna Bal APRN Primary Care Provider +1 -[phone] Encounter Details Date Type Department Care Team (Late st Contact Info) Description 09/05/2022 Telephone [place] [address] Valentina Stanton Social History Tobacco Use Types [...] PM EST Office [place] [address] Hollie Ambriz MD [facility] [place] [address] documented as of this encounter Visit Diagnoses Not on filedocumented in this encounter Care Teams Refund Specialist Relationship Specialty Start Date End Date Lorna Bal, EPIC CADENCE ANALYST [address] [place] [address] PCP - General Family Medicine 05/27/18 documented as of this encounter
--- OUTSIDE RECORDS SUMMARY | 2024-01-05 18:23 | XMS_ITS | Encounter Summary ---
Author Organization [facility]ending [facility] [address] Care Team Providers Care Ultimate Hoops Scoreboard Operator Name Role Phone Lorna Bal APRN Primary Care Provider +1 [phone] Reason for Referral * Diagnostic Test (Routine) - Closed Specialty Diagnoses / Procedures Referred By Contac t Referred To Contact Radiology Diagnoses Spinal abscess Procedures CT Lumbar Spine w Contrast Jamar Dasilva MD [facility] [place] [address] [facility] [place] [address] Referral ID Status Reason Start Date Expiration Date V isits Requested Visits Authorized [id number] Closed Specialty Service Requested 09/25/2022 03/27/2024 1 1 Encounter Details Date Type Department Care Team (Late st Contact Info) Description 09/25/2022 Orders [place] [address] Jamar Dasilva MD [facility] [place] [address] Spinal abscess Social History Tobacco [...] PM EST Office [place] [address] Hollie Ambriz MD [facility] [address] [place] [address] documented as of this encounter Results * [...] signed by: Pantera Salazar MD, [facility] ([phone]), at 09/26/2022 10:59 AM Narrative 09/26/2022 10:59 [...] transition coordinator that requested your imaging first. Jamar Dasilva MD IMG CT ORDERABLES documented in this encounter Visit Diagnoses Diagnosis Spinal abscess Acute osteomyelitis, other specified site Spinal abscess Acute osteomyelitis, other specified site documented in this encounter Care Teams Ultimate Hoops Scoreboard Operator Relationship Specialty Start Date End Date Lorna Bal, PLATE COLORER [address] [place] [address] PCP - General Family Medicine 05/27/18 documented as of this encounter
--- OUTSIDE RECORDS SUMMARY | 2024-01-05 18:23 | XMS_ITS | Encounter Summary ---
Author Organization [facility] [place] [address] Care Team Providers Care Commodity Supervisor Name Role Phone Lorna Bal APRN Primary Care Provider +1 -[phone] Reason for Referral * Diagnostic Test (Routine) [...] Check/Change/Remove Jamaal Jenkins, [facility] [place] [address] [facility] [place] [address] Referral ID Status Reason Start Date Expiration Date Visits Requested Visits Authorized [id number] Pending Review Specialty Service Requested 08/25/2022 02/26/2024 [...] Procedures IR Drain Check/Change/Remove Jamaal Jenkins, [facility] [address] [facility] [place] [address] Referral ID Status Reason Start Date Expiration Date Visits Requested Visits Authorized [id number] Pending Review Specialty Service Requested 08/25/2022 02/26/2024 1 1 Encounter Details Date Type Department Care Team (Latest Contact Info) Description 09/10/2022 10:49 AM EDT - 09/10/2022 11:59 PM EDT Hospital En[place] [address] Jamaal Jenkins, [facility] [address] Spinal abscess; Abscess; Contracture of left elbow; [...] Qiu RN - 09/10/2022 12:55 PM EDT [facility] Vascular and Interventional Radiology Discharge [...] is during regular office hours, please call [phone]. If it is after regular office hours, or on weekends or holidays, please call [phone] and ask to speak to the Licensed Occupational Therapy Assistant mutton puncher for Interventional Radiology. You may resume your [...] of : 1995 AGE: 27 y.o. Address: [address] [place] [address] Phone: [phone] (home) Mobile: Telephone Information: Referring Provider: Jamaal [...] Questions Answers Where will study be performed? [facility] Radiology [120] Reason for exam and clinical history: Paraspinal abscesses status post drain palcement. Persistent collections. Drain repositioned 08/25. Routine 3-week drain check. Is the patient ? No Is the patient on anticoagulant / antiplatelet therapy ? No Allergies Allergen Reactions ??? Fluoxetine Other (See Comments) HIVES, HEART RACES ??? Tegaderm [Transparent Dressings] Itching and Dermatitis Please use [id number] ??? Penicillins Pertinent PMH: Patient Active Problem [...] Martino MD [facility] INTERVENTIONL RAD ??? IR ALL DRAINAGE PROCEDURES 07/04/2022 IR All Drainage Procedures 07/04/2022 Mich Martino MD [facility] INTERVENTIONL RAD ??? IR ALL DRAINAGE PROCEDURES 07/24/2022 IR All Drainage Procedures 07/24/2022 Anurag Kumar MD [facility] INTERVENTIONL RAD ??? IR DRAIN CHECK/CHANGE/REMOVE 07/01/2022 IR Drain Check/Change/Remove 07/01/2022 Jamaal Jenkins, DO [facility] INTERVENTIONL RAD ??? IR DRAIN CHECK/CHANGE/REMOVE 08/11/2022 IR Drain Check/Change/Remove 08/11/2022 Piter Self MD [facility] INTERVENTIONL RAD ??? IR DRAIN CHECK/CHANGE/REMOVE 08/25/2022 IR Drain Check/Change/Remove 08/25/2022 Jamaal Jenkins, DO [facility] INTERVENTIONL RAD ??? PRO APPLY OF HIP CASTS, TWO LEGS 08/15/2010 CAST APPLICATION, HIP SPICA, BOTH LEGS performed by BARERRA OLIVER at [facility] OR ? ? PRO I&D, POST SPINE, LUMB/SACR/LUMBOSAC N/A 05/20/2014 @I & D, OPEN, DEEP ABSCESS, LUMBAR, SACRAL, LUMBOSACRAL performed by Freddy Isbell MD at [facility] OR ? ? PRO I&D, POST SPINE, LUMB/SACR/LUMBOSAC N/A 05/26/2014 @I & D, OPEN, DEEP ABSCESS, LUMBAR, SACRAL, LUMBOSACRAL performed by Freddy Isbell MD at [facility] OR ??? PRO IMPACT TOOTH REMOV COMP BONY N/A 06/14/2018 SURGICAL EXTRACTIONS, REMOVAL OF IMPACTED TOOTH, COMPLETELY BONY (WRVU 1.93) performed by Keith Cotton MD at [facility] OSC ??? PRO OSTEOTOMY FEMUR SHAFT/SUPRACONDY 08/15/2010 ??OSTEOTOMY, FEMUR SHAFT OR SUPRACONDYLAR W/O FIXATION performed by BARRERA OLIVER at [facility] OR ??? PRO RECONSTRUC HIP SOCKET, RESEC FEM HEAD 08/15/2010 ??ACETABULOPLASTY (GIRDLESTONE), RESECTION FEMORAL HEAD, BILATERAL performed by BARRERA OLIVER [facility] OR ??? PRO REMOVAL DEEP IMPLANT 08/15/2010 REMOVAL IMPLANT, DEEP, BRUNO performed by BARRERA OLIVER at [facility] OR ??? PRO REMOVAL ERUPTED TOOTH WITH ELEVATION OF MUCOPERIOSTEAL FLAP N/A 06/14/2018 SURGICAL EXTRACTIONS REQUIRING ELEVATION OF MUCOPERIOSTEAL FLAP AND REMOVAL OF BONE OR SECTION OF TOOTH (WRVU 1.09) performed by Keith Cotton MD at [facility] OSC ??? PRO REMOVE INFUSN DEVICE/PUMP N/A 05/11/2014 REMOVAL OF SPINE INFUSION PUMP performed by Jamaal Samuel MD at [facility] MAIN OR ??? PRO REMOVE SPINAL CANAL CATHETER N/A 05/11/2014 REMOVAL OF INTRATHECAL OR EPIDURAL CATHETER performed by Jamaal Samuel MD at [facility] MAIN OR ??? PRO REPR, DURAL/CSF LEAK, NOT REQ LAMINECTOMY N/A 05/20/2014 @REPAIR DURAL\CSF LEAK,NOT REQUIRING LAMINECTOMY performed by Freddy Isbell MD at [facility] MAIN OR Medications: Current Outpatient Medications on [...] EST Office Visit [place] [address] Hollie Ambriz MD [facility] [place] [address] documented as of this encounter Procedures Procedure [...] mLs documented in this encounter Care Teams Commodity Supervisor Relationship Specialty Start Date End Date Lorna Bal, [place] [address] [place] [address] PCP - General Family Medicine 05/27/18 documented as of this encounter
--- OUTSIDE RECORDS SUMMARY | 2024-01-05 18:24 | XMS_ITS | Encounter Summary ---
Author Organization [facility] [place] [address] Care Team Providers Care Charcoal Burner Beehive Kiln Name Role Phone Lorna Bal APRN Primary Care Provider +1 -[phone] Encounter Details Date Type Department Care Team (Late st Contact Info) Description 07/15/2022 Telephone [place] [address] Valentina Stanton Social History Tobacco Use Types [...] is taking levofloxacin as prescribed. [facility] fallon labs today. We talked [...] PM EST Office Visit [place] [address] Hollie Ambriz MD [facility] [place] [address] documented as of this encounter Visit Diagnoses Not on filedocumented in this encounter Care Teams Charcoal Burner Beehive Kiln Relationship Specialty Start Date End Date Lorna Bal APRN [address] [place] [address] PCP - General Family Medicine 05/27/18 documented as of this encounter
--- OUTSIDE RECORDS SUMMARY | 2024-01-05 18:24 | XMS_ITS | Encounter Summary ---
[place] [address] Care Team Providers Care Family Medicine Physician Assistant Name Role Phone Lorna Bal APRN Primary Care Provider +1 -[phone] Encounter Details Date Type Department Care Team [...] PM EST Office [place] [address] Hollie Ambriz MD [facility] [place] [address] documented as of this encounter Visit Diagnoses Not on filedocumented in this encounter Care Teams Family Medicine Physician Assistant Relationship Specialty Start Date End Date Lorna Bal APRN [address] [place] [address] PCP - General Family Medicine 05/27/18 documented as of this encounter
--- OUTSIDE RECORDS SUMMARY | 2024-01-05 18:24 | XMS_ITS | Encounter Summary ---
Author Organization [facility] [place] [address] Care Team Providers Care Audiology Assistant Name Role Phone Lorna Bal APRN Primary Care Provider +1 -[phone] Encounter Details Date Type Department Care Team (Late st Contact Info) Description 07/22/2022 Notes Only Infectious Disease at [facility] [place] [address] Mesha Mckeon, RN Social History Tobacco Use [...] 07/22/2022 1:28 PM EDT Received call from [facility] who informed this scientific technical writer that they are unable to obtain [...] PM EST Office [place] [address] Hollie Ambriz MD [facility] [place] [address] documented as of this encounter Visit Diagnoses Not on filedocumented in this encounter Care Teams Audiology Assistant Relationship Specialty Start Date End Date Lorna Bal APRN [address] [place] [address] PCP - General Family Medicine 05/27/18 documented as of this encounter
--- OUTSIDE RECORDS SUMMARY | 2024-01-05 18:24 | XMS_ITS | Encounter Summary ---
Author Organization [facility] [place] [address] Care Team Providers Care Tobacco Curer Name Role Phone Lorna Bal APRN Primary Care Provider +1 -[phone] Encounter Details Date Type Department Care Team (Late st Contact Info) Description 07/22/2022 [place] [address] Yury Gibbons MD [facility] DR DIAGNOST[place] [address] Social History Tobacco Use Types Packs/Day Years [...] PM EST Office [place] [address] Hollie Ambriz MD [facility] [address] [place] [address] documented as of this encounter Visit Diagnoses Not on filedocumented in this encounter Care Teams Tobacco Curer Relationship Specialty Start Date End Date Lorna Bal APRN [address] [place] [address] PCP - General Family Medicine 05/27/18 documented as of this encounter
--- OUTSIDE RECORDS SUMMARY | 2024-01-05 18:24 | XMS_ITS | Encounter Summary ---
Author Organization [facility] Address [facility] [place] [address] Care Team Providers Care Dumper Operator Name Role Phone Lorna Bal APRN Primary Care Provider +1 -[phone] Encounter Details Date Type Department Care Team (Late st Contact Info) Description 07/12/2022 Telephone [place] [address] Ainsley Doyle MD [facility] [place] [address] Social History Tobacco Use Types Packs/Day Years [...] PM EST Office [place] [address] Hollie Ambriz MD [facility] [place] [address] documented as of this encounter Visit Diagnoses Not on filedocumented in this encounter Care Teams Dumper Operator Relationship Specialty Start Date End Date Lorna Bal APRN [address] [place] [address] PCP - General Family Medicine 05/27/18 documented as of this encounter
--- OUTSIDE RECORDS SUMMARY | 2024-01-05 18:24 | XMS_ITS | Encounter Summary ---
Author Organization [facility] [address] [place] [address] Care Team Providers Care Security Orderly Name Role Phone Lorna Bal APRN Primary Care Provider +1 -[phone] Encounter Details Date Type Department Care Team (Late st Contact Info) Description 07/09/2022 Notes Only Infectious Disease at [facility] [place] [address] Mesha Mckeon, RN Social History Tobacco Use [...] AM EDT Infectious Disease Department Faxed to [facility] and [facility] on 07/09/22 at 0950 Fax confirmation on 07/09/22 at 0952 Document(s) faxed: Standing labs documented in this encounter Plan of Treatment Upcoming Encounters Date Type Department Care Team (Late st Contact Info) Description 06/02/2024 12:30 PM EST Office Visit [place] [address] Hollie Ambriz MD [facility] [address] [place] [address] documented as of this encounter Visit Diagnoses Not on filedocumented in this encounter Additional Health Concerns Infection Onset Date Last Indicated Resolved Time Parainfluenza Virus 06/28/2022 06/28/2022 07/10/19 8:09 PM EDT documented as of this encounter Care Teams Security Orderly Relationship Specialty Start Date End Date Lorna Bal APRN [address] [place] [address] PCP - General Family Medicine 05/27/18 documented as of this encounter
--- OUTSIDE RECORDS SUMMARY | 2024-01-05 18:24 | XMS_ITS | Encounter Summary ---
Author Organization [facility] Address [facility] [place] [address] Care Team Providers Care Tricot Knitting Machine Operator Name Role Phone Lorna Bal APRN Primary Care Provider +1 -[phone] Encounter Details Date Type Department Care Team (Late st Contact Info) Description 07/17/2022 Telephone [place] [address] Jamaal Estrada MD [facility] [place] [address] Social History Tobacco Use Types Packs/Day Years [...] PM EST Office [place] [address] Hollie Ambriz MD [facility] [place] [address] documented as of this encounter Visit Diagnoses Not on filedocumented in this encounter Care Teams Tricot Knitting Machine Operator Relationship Specialty Start Date End Date Lorna Bal APRN [address] [place] [address] PCP - General Family Medicine 05/27/18 documented as of this encounter
--- OUTSIDE RECORDS SUMMARY | 2024-01-05 18:24 | XMS_ITS | Encounter Summary ---
[place] [address] Care Team Providers Care Dietitian Name Role Phone Lorna Bal APRN Primary Care Provider [phone] Reason for Referral * Diagnostic Test (Routine) - New Request Specialty Diagnoses / Procedures Referred By Contac t Referred To Contact Radiology Diagnoses Spinal abscess Procedures IR Drain Check/Change/Remove Lucho Burciaga MD [facility] [place] [address] [place] [address] Referral ID Status Reason Start Date Expiration Date Visits Requested Visits Authorized [id number] New Request Specialty Service Requested 07/24/2022 01/25/2024 1 1 Reason for Visit * Reason Comments Wound Check * Auth/Cert (Routine) Specialty Diagnoses / Procedures Referred By Contac t Referred To Contact Diagnoses Abscess Procedures EMERGENCY Eddi Samuel MD [facility] [place] [address] [facility] Referral ID Status Reason Start Date Expiration Date Visits Re quested Visits Authorized [id number] 1 1 Encounter Details Date Type Department Care Team (Latest Contact Info) Description 07/22/2022 5:43 PM EDT - 08/01/2022 5:12 PM EDT Hospital Encounter Medical Specialites Unit Level 1 [place] [id number] Alek Tavares MD [facility] [address] [place] [address] Eddi Váz[place] [address] [place] [address] [place] [address] 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 Dx); QT prolongation; Abscess [...] Tana Cavazos Patient Age: 27 y.o. Language: Kiswahili Race: White Ethnicity: Not nor Admit date: [...] the [facility] Distribution Tech . Issues afterhours and on weekends will [...] [Transparent Dressings] Itching and Dermatitis Please use [id number] ??? Penicillins Immunizations Given this Hospitalization: Immunization History Administered Date(s) Administered ??? Influenza Vaccine (Novel) [id number], Injectable 02/25/2009 ??? Influenza Vaccine w/Preservative, Split [...] [facility] 08/11/2022 12:50 PM [facility] IR ROOM 6 IR [facility] Rad 08/13/2022 11:30 AM Sergey Keane MD [facility] [place] [id number] [facility] Follow-up Appointments: N/A Your Inpatient Doctor(s) at [facility]: ALEK TAVARES, ERNESTO MCCARTHY, EDDI BELL, JODY Kwong For questions regarding issues relating to your hospitalization on the Hospital Medicine Service, please contact your inpatient physician through the [facility] Distribution Tech [phone]. Issues after hours and on weekends will be handled by the Hospitalist staff on-call. Your Primary Care Provider Lorna Bal APRN [phone] General Instructions INTERVENTIONAL RADIOLOGY DRAIN CARE INSTRUCTIONS [...] is during regular office hours, please call [phone]. If it is after regular office hours, or on weekends or holidays, please call [phone] and ask to speak to the [employer] Advisor environmental property assessor for Interventional Radiology. XX You have received [...] [facility] Arrive at: Home [phone] Please do not come in for this visit. Your provider will call you at the number you provided. 08/11/2022 12:50 PM [facility] IR ROOM 6 Radiology at [facility] Arrive at: [facility] RADIOLOGY [phone] Please expect a call from a radiology nurse within 3 days of your exam, you will need to follow theinstructions given at that time. 08/13/2022 11:30 AM Sergey Keane MD Infectious Disease at [facility] Arrive at: Commissioned Defence Force Officer Area [phone] Future Orders Complete By Expires IR Drain Check/Change/Remove [[id number] Custom] 08/07/2022 (Approximate) 02/06/2023 Process Instructions: Scheduling Instructions: Comments: Questions: Where will study be performed?: [facility] Radiology Reason for exam and clinical [...] ?: No CT Lumbar Spine w Contrast [[id number] Custom] 08/08/2022 02/07/2023 Process Instructions: Scheduling Instructions: Questions: Clinical information / foster questions for radiologist: eval for interval changes in abscesses s/p drain placement Where will study be performed?: [facility] Radiology Is the patient ?: No Stat read required?: Does patient require sedation?: GA rationale: Date of injury if applicable: Recurring Lab Work Interval Expires CBC (with Diff) [CLV781 Custom] Once a week until 08/02/2023 08/02/2023 Process Instructions: INCLUDES: WBC, RBC, Hgb, Hct, Platelets, RBC Indices and Differential Scheduling Instructions: Comments: Questions: Comprehensive metabolic panel (non-fasting) [LAB17 Custom] Once a week until 08/02/2023 08/02/2023 Process Instructions: INCLUDES: Calcium, T Protein, Albumin, AST, ALT, Alk Phos, T Bili, BUN, Creat, GFR, Glucose, Lytes. Scheduling Instructions: Comments: Questions: CRP, acute inflammation [[id number] Custom] Once a week until 08/02/2023 08/02/2023 [...] is during regular office hours, please call [phone]. If it is after regular office hours, or on weekends or holidays, please call [phone] and ask to speak to the [employer] Advisor environmental property assessor for Interventional Radiology. XX You have received [...] her to stop it. She might require laborer marine terminal antibiotics to suppress infection. At some point [...] [facility] 08/11/2022 12:50 PM [facility] IR ROOM 6 [facility] Rad 08/13/2022 11:30 AM Sergey Keane MD [...] the [facility] Distribution Tech [phone]. Issues after hours and on weekends will be handled by the Hospitalist staff on-call. Your Primary Care Provider Lorna Bal, LOGISTICS/SHIPPER [phone] documented in this encounter Medications at Time [...] Lundberg DO ID Fellow Green Team Pager: [phone] I examined the patient independently of Dr. [...] a hospital length of stay nutrition evaluation. Combatant Diver Officer spoke with nursing d/tpt status. Per documentation patient has excellent PO intakes recorded at 75-100% over the past 4 days. According to dining services software they have ordered btwn 1608-3033kcals/day within the sameduration. Pt is eating great with caregiver assistance and is completing 75% of food received per RN. Combatant Diver Officer unable to assess weight d/t only documentation [...] spent >30 minutes (Day of Discharge Code 06518) involved in the final examination of the patient, discussion of the hospital stay, instructions for continuing care to all relevant caregivers, and preparation of discharge records, prescriptions and referral forms. Plans ? Discharge to home ? Follow-up scheduled with infectious diseases, IR ? Please see the Discharge Summary for complete details of any medication changes and additional plans. Jody Collins MD [facility] Medicine * Yandy Masters RN - 08/01/2022 2:01 AM EDTSummary: Nursing OUTCOME EVALUATION NOTE: OUTCOME SUMMARY: Alert, non-verbal, hx of paraplegia, vss, 2a/L, no s+s of pain. Patient is resting comfortably in bed, Fannie (eyewear manufacturing supervisor) at bedside and attentive to patient, 2 [...] Lundberg, DO ID Fellow Green Team Pager: [phone] I examined the patient independently of Dr. 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 care facility Code Status: Attempt Cardiopulmonary Resuscitation [...] of two midnights or is on the [facility] inpatient only procedure list (status C) due to: monitoring of fluid status given an inability to regulate fluid balance and the need for administration or restriction of fluids Team Pager( Coverage 17/11): #[phone] PCP: Lorna Bal, LOGISTICS/SHIPPER [phone] Jody Collins MD 07/31/2022 * Paige Gonzalez [...] Lundberg, DO ID Fellow Green Team Pager: [phone] I interviewed and examined the patient independently [...] Identification Panel by PCR Refer to link [email or web address]-[email or web address] for a complete list of organisms. Identification [...] of two midnights or is on the [facility] inpatient only procedure list (status C) due to: monitoring of fluid status given an inability to regulate fluid balance and the need for administration or restriction of fluids Team Pager(MD Coverage 17/11): #[phone] PCP: Lorna Bal, LOGISTICS/SHIPPER [phone] Jody Collins MD 07/30/2022 * Shawn Woodard [...] attending, Dr. Vance Lundberg DO ID Fellow [place] Team Pager: [phone] I interviewed and examined the patient independently [...] Hospital Problems No resolved problems to display. [facility] Active Non-Hospital Problems Diagnosis ??? Spinal abscess [...] future testing is required, contact the Microbiology Ortho Tech. * No growth at 5 days. 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 * No growth at 5 days. 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 * No growth at 5 days. No [...] of two midnights or is on the [facility] inpatient only procedure list (status C) due to: monitoring of fluid status given an inability to regulate fluid balance and the need for administration or restriction of fluids Team Pager( Coverage 17/11): #[phone] PCP: Lorna Bal, LOGISTICS/SHIPPER [phone] Jody Collins MD 07/27/2022 * Citlali Mcdonald [...] future testing is required, contact the Microbiology Ortho Tech. * No growth at 5 days. No [...] of two midnights or is on the [facility] inpatient only procedure list (status C) due to: monitoring of fluid status given an inability to regulate fluid balance and the need for administration or restriction of fluids Team Pager(MD Coverage 17/11): #[phone] PCP: Lorna Bal, LOGISTICS/SHIPPER [phone] Jody Collins MD 07/26/2022 * Citlali Mcdonald [...] Sergey Doan MD Infectious Disease Fellow Pager [phone] 07/25/22 (Attending addendum to follow) Associated attestation [...] future testing is required, contact the Microbiology Ortho Tech. * No growth at 5 days. 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 Address: [address] [place] [address] Phone: [phone] (home) Mobile: Telephone Information: Referring Provider: Unknown [...] [Transparent Dressings] Itching and Dermatitis Please use [id number] ??? Penicillins Pertinent PMH: Patient Active Problem [...] - DVT PPx: lovenox - Disposition: her laborer marine terminal care facility - Family support: mother and her laborer marine terminal care providers - Code Status: Attempt Cardiopulmonary Resuscitation - Inpatient IPI Certification I certify that I am a D-H credentialed attending provider with admitting privileges and that the patient meets or has met medical necessity to require an inpatient IPI level of care meeting a minimumof two midnights or is on the [facility] inpatient only procedure list (status C) due to: monitoring of fluid status given an inability to regulate fluid balance and the need for administration or restriction of fluids Ernesto Willingham MD TEAM/PAGER:[phone] Subjective/24hr events: Says yes to most questions. [...] future testing is required, contact the Microbiology Ortho Tech. * No growth at 5 days. No [...] imaging first. 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 marine terminal care facility - Family support: mother and her usp care providers - Code Status: Attempt Cardiopulmonary Resuscitation - Inpatient IPI Certification I certify that I am a D-H credentialed attending provider with admitting privileges and that the patient meets or has met medical necessity to require an inpatient IPI level of care meeting a minimumof two midnights or is on the [facility] inpatient only procedure list (status C) due to: monitoring of fluid status given an inability to regulate fluid balance and the need for administration or restriction of fluids Ernesto Willingham MD TEAM/PAGER:[phone] Subjective/24hr events: Says yes to most questions. [...] future testing is required, contact the Microbiology Ortho Tech. * No growth at 5 days. No [...] imaging first. Electronically signed by: Jamaal Villafuerte [facility] ([phone]), at 07/22/2022 8:03 PM Medications: Scheduled Meds: [...] All Drainage Procedures 06/25/2022 Mich Martino MD [facility] INTERVENTIONL RAD ??? IR ALL DRAINAGE PROCEDURES 07/04/2022 IR All Drainage Procedures 07/04/2022 Mich Martino MD [facility] INTERVENTIONL RAD ??? IR DRAIN CHECK/CHANGE/REMOVE 07/01/2022 IR Drain Check/Change/Remove 07/01/2022 Jamaal Jenkins, DO [facility] INTERVENTIONL RAD ??? PRO APPLY OF HIP CASTS, TWO LEGS 08/15/2010 CAST APPLICATION, HIP SPICA, BOTH LEGS performed by YAS OLIVER at [facility] OR ? ? PRO I&D, POST SPINE, LUMB/SACR/LUMBOSAC N/A 05/20/2014 @I & D, OPEN, DEEP ABSCESS, LUMBAR, SACRAL, LUMBOSACRAL performed by Freddy Isbell MD at [facility] MAIN OR ? ? PRO I&D, POST SPINE, LUMB/SACR/LUMBOSAC N/A 05/26/2014 @I & D, OPEN, DEEP ABSCESS, LUMBAR, SACRAL, LUMBOSACRAL performed by Freddy Isbell MD at [facility] OR ??? PRO IMPACT TOOTH REMOV COMP BONY N/A 06/14/2018 SURGICAL EXTRACTIONS, REMOVAL OF IMPACTED TOOTH, COMPLETELY BONY (WRVU 1.93) performed by Keith Cotton MD at [facility] OSC ??? PRO OSTEOTOMY FEMUR SHAFT/SUPRACONDY 08/15/2010 ??OSTEOTOMY, FEMUR SHAFT OR SUPRACONDYLAR W/O FIXATION performed by YAS OLIVER at [facility] OR ??? PRO RECONSTRUC HIP SOCKET, RESEC FEM HEAD 08/15/2010 ??ACETABULOPLASTY (GIRDLESTONE), RESECTION FEMORAL HEAD, BILATERAL performed by YAS OLIVER [facility] OR ??? PRO REMOVAL DEEP IMPLANT 08/15/2010 REMOVAL IMPLANT, DEEP, BRUNO performed by YAS OLIVER at [facility] OR ??? PRO REMOVAL ERUPTED TOOTH WITH ELEVATION OF MUCOPERIOSTEAL FLAP N/A 06/14/2018 SURGICAL EXTRACTIONS REQUIRING ELEVATION OF MUCOPERIOSTEAL FLAP AND REMOVAL OF BONE OR SECTION OF TOOTH (WRVU 1.09) performed by Keith Cotton MD at [facility] OSC ??? PRO REMOVE INFUSN DEVICE/PUMP N/A 05/11/2014 REMOVAL OF SPINE INFUSION PUMP performed by Jamaal Samuel MD at [facility] MAIN OR ??? PRO REMOVE SPINAL CANAL CATHETER N/A 05/11/2014 REMOVAL OF INTRATHECAL OR EPIDURAL CATHETER performed by Jamaal Samuel MD at [facility] MAIN OR ??? PRO REPR, DURAL/CSF LEAK, NOT REQ LAMINECTOMY N/A 05/20/2014 @REPAIR DURAL\CSF LEAK,NOT REQUIRING LAMINECTOMY performed by Freddy Isbell MD at [facility] MAIN OR [...] All Drainage Procedures 06/25/2022 Mich Martino MD [facility] INTERVENTIONL RAD ??? IR ALL DRAINAGE PROCEDURES 07/04/2022 IR All Drainage Procedures 07/04/2022 Mich Martino MD [facility] INTERVENTIONL RAD ??? IR DRAIN CHECK/CHANGE/REMOVE 07/01/2022 IR Drain Check/Change/Remove 07/01/2022 Jamaal Jenkins, DO [facility] INTERVENTIONL RAD ??? PRO APPLY OF HIP CASTS, TWO LEGS 08/15/2010 CAST APPLICATION, HIP SPICA, BOTH LEGS performed by YAS OLIVER at [facility] OR ? ? PRO I&D, POST SPINE, LUMB/SACR/LUMBOSAC N/A 05/20/2014 @I & D, OPEN, DEEP ABSCESS, LUMBAR, SACRAL, LUMBOSACRAL performed by Freddy Isbell MD at [facility] OR ? ? PRO I&D, POST SPINE, LUMB/SACR/LUMBOSAC N/A 05/26/2014 @I & D, OPEN, DEEP ABSCESS, LUMBAR, SACRAL, LUMBOSACRAL performed by Freddy Isbell MD at [facility] OR ??? PRO IMPACT TOOTH REMOV COMP BONY N/A 06/14/2018 SURGICAL EXTRACTIONS, REMOVAL OF IMPACTED TOOTH, COMPLETELY BONY (WRVU 1.93) performed by Keith Cotton MD at [facility] OSC ??? PRO OSTEOTOMY FEMUR SHAFT/SUPRACONDY 08/15/2010 ??OSTEOTOMY, FEMUR SHAFT OR SUPRACONDYLAR W/O FIXATION performed by YAS OLIVER at [facility] OR ??? PRO RECONSTRUC HIP SOCKET, RESEC FEM HEAD 08/15/2010 ??ACETABULOPLASTY (GIRDLESTONE), RESECTION FEMORAL HEAD, BILATERAL performed by YAS OLIVER [facility] OR ??? PRO REMOVAL DEEP IMPLANT 08/15/2010 REMOVAL IMPLANT, DEEP, BRUNO performed by YAS OLIVER at [facility] OR ??? PRO REMOVAL ERUPTED TOOTH WITH ELEVATION OF MUCOPERIOSTEAL FLAP N/A 06/14/2018 SURGICAL EXTRACTIONS REQUIRING ELEVATION OF MUCOPERIOSTEAL FLAP AND REMOVAL OF BONE OR SECTION OF TOOTH (WRVU 1.09) performed by Keith Cotton MD at [facility] OSC ??? PRO REMOVE INFUSN DEVICE/PUMP N/A 05/11/2014 REMOVAL OF SPINE INFUSION PUMP performed by Jamaal Samuel MD at [facility] OR ??? PRO REMOVE SPINAL CANAL CATHETER N/A 05/11/2014 REMOVAL OF INTRATHECAL OR EPIDURAL CATHETER performed by Jamaal Samuel MD at [facility] OR ??? PRO REPR, DURAL/CSF LEAK, NOT [...] All Drainage Procedures 06/25/2022 Mich Martino MD [facility] INTERVENTIONL RAD ??? IR ALL DRAINAGE PROCEDURES 07/04/2022 IR All Drainage Procedures 07/04/2022 Mich Martino MD [facility] INTERVENTIONL RAD ??? IR DRAIN CHECK/CHANGE/REMOVE 07/01/2022 IR Drain Check/Change/Remove 07/01/2022 Jamaal Jenkins, DO [facility] INTERVENTIONL RAD ??? PRO APPLY OF HIP CASTS, TWO LEGS 08/15/2010 CAST APPLICATION, HIP SPICA, BOTH LEGS performed by YAS OLIVER at [facility] MAIN OR ? ? PRO I&D, POST SPINE, LUMB/SACR/LUMBOSAC N/A 05/20/2014 @I & D, OPEN, DEEP ABSCESS, LUMBAR, SACRAL, LUMBOSACRAL performed by Freddy Isbell MD at [facility] OR ? ? PRO I&D, POST SPINE, LUMB/SACR/LUMBOSAC N/A 05/26/2014 @I & D, OPEN, DEEP ABSCESS, LUMBAR, SACRAL, LUMBOSACRAL performed by Freddy Isbell MD at [facility] OR ??? PRO IMPACT TOOTH REMOV COMP BONY N/A 06/14/2018 SURGICAL EXTRACTIONS, REMOVAL OF IMPACTED TOOTH, COMPLETELY BONY (WRVU 1.93) performed by Keith Cotton MD at [facility] OSC ??? PRO OSTEOTOMY FEMUR SHAFT/SUPRACONDY 08/15/2010 ??OSTEOTOMY, FEMUR SHAFT OR SUPRACONDYLAR W/O FIXATION performed by YAS OLIVER at [facility] OR ??? PRO RECONSTRUC HIP SOCKET, RESEC FEM HEAD 08/15/2010 ??ACETABULOPLASTY (GIRDLESTONE), RESECTION FEMORAL HEAD, BILATERAL performed by YAS OLIVER [facility] OR ??? PRO REMOVAL DEEP IMPLANT 08/15/2010 REMOVAL IMPLANT, DEEP, BRUNO performed by YAS OLIVER at [facility] OR ??? PRO REMOVAL ERUPTED TOOTH WITH ELEVATION OF MUCOPERIOSTEAL FLAP N/A 06/14/2018 SURGICAL EXTRACTIONS REQUIRING ELEVATION OF MUCOPERIOSTEAL FLAP AND REMOVAL OF BONE OR SECTION OF TOOTH (WRVU 1.09) performed by Keith Cotton MD at [facility] OSC ??? PRO REMOVE INFUSN DEVICE/PUMP N/A 05/11/2014 REMOVAL OF SPINE INFUSION PUMP performed by Jamaal Samuel MD at [facility] OR ??? PRO REMOVE SPINAL CANAL CATHETER N/A 05/11/2014 REMOVAL OF INTRATHECAL OR EPIDURAL CATHETER performed by Jamaal Samuel MD at [facility] OR ??? PRO REPR, DURAL/CSF LEAK, NOT REQ LAMINECTOMY N/A 05/20/2014 @REPAIR DURAL\CSF LEAK,NOT REQUIRING LAMINECTOMY performed by Freddy Isbell MD at [facility] OR Prior To Admission Medications: (Not in a hospital admission) Allergies: Allergies Allergen Reactions ??? Fluoxetine Other (See Comments) HIVES, HEART RACES ??? Tegaderm [Transparent Dressings] Itching and Dermatitis Please use [id number] ??? Penicillins Family History: Family History Problem [...] Administered Date(s) Administered ??? Influenza Vaccine (Novel) [id number], Injectable 02/25/2009 ??? Influenza Vaccine w/Preservative, Split [...] external catheter placed. Will continue to monitor. Tractor Driver at bedside. * Samuel Comer MD - [...] imaging first. Electronically signed by: Jamaal Villafuerte [facility] ([phone]), at 07/22/2022 8:03 PM Recent Results (from [...] MD 07/22/22 Samuel Comer MD Resident 07/22/22 [id number] Associated attestation - Alek Tavares MD - [...] separate note. Brief Summary: History obtained from eyewear manufacturing supervisor 27 y.o. female with history of traumatic [...] with plan. Yas John RN, BSN, [employer] Teacher Pager [phone] * Plan of Care - Jimbo Willams [...] Name: Anderson Thorpe Decision Maker Contact Information: [phone] (M) Proxy Activated: Yes Functional status prior [...] Discharge: 08/01/2022 Yas John RN, BSN, [employer] Teacher Pager [phone] * Plan of Care - Guerita Quinonez [...] for sensory deficits provided, if applicable: yes. companion caregiver present * Plan of Care - [...] Masimo, bed alarm in use, purposeful rounding, occasional caregiver at bed side. * Care Management - [...] Name: Anderson Thorpe Decision Maker Contact Information: [phone] (M) Proxy Activated: Yes Functional status prior [...] Discharge: 07/29/2022 Yas John RN, BSN, [employer] Teacher Pager [phone] * Plan of Care - Maren Barnard [...] for sensory deficits provided, if applicable: yes. companion caregiver present * Plan of Care - [...] [address] Appointed Guardian(s) Contact Information: [phone] (H) [phone] (M) Proxy Activated: Yes Guardianship paperwork on [...] device, hospital bed Home Address listed as: [address] [place] [id number] Social & Family Supports: All names listed below confirmed with patient as current and correct Extended Emergency Contact Information Primary Emergency Contact: Anderson Thorpe [facility] Mobile Relation: Mother Secondary Emergency Contact: Curt Philippe [facility] Mobile Relation: Step parent Current Care [...] N/A ; Prescription Coverage: Yes Preferred Pharmacy: [facility] [address] [place] [address] [address] [facility] [address] [place] [id number] [facility] - [place], [place] - [address] [facility] [address] [facility] [address] [facility] [address] - [place], [place] - [address] [facility] [address] [facility] [address] [place] Status: Patient is a : No Primary Care Provider listed: Lorna Bal APRN [phone] Patient/Caregiver Goals of Treatment: return home with [...] care planning. Yas John RN, BSN, [employer] Teacher Pager [phone] * Plan of Care - Osman Bowen RN - 07/24/2022 6:26 PM EDT OUTCOME EVALUATION NOTE: OUTCOME SUMMARY: Patient brightens with approach, on room air, occasional caregiver at bedside, IR placed 2 carmella drains [...] included. DEPARTMENT OF INFECTIOUS DISEASE & [facility] INFECTIOUS DISEASE CONSULT NOTE Patient Name: Tana Cavazos PCP: Lorna Bal APRN PCP phone #: [phone] Reason for Admission: Lumbar subcutaneous abscesses with [...] on the date of service on the [id number] encounter, chart review, clinical decision making, documentation, [...] Discuss with Dr. Christy Menchaca MD Pager: #[phone] 07/23/22 12:31 PM Future Appointments Date Time [...] Spine Surgery - Department of Orthopaedic Surgery Virtualization Consultant - Department of Orthopedic Surgery / Academics and Research Gmat Tutor Professor - [facility] 07/25/2022 * Consult Note - Oriana Rondon RP - 07/23/2022 1:09 AM EDT TelePharmacy Home Medication List Update for Medication Reconciliation 07/23/22 1:09 AM Tana Cavazos 1995 Allergies Allergen Reactions ??? Fluoxetine Other (See Comments) HIVES, HEART RACES ??? Tegaderm [Transparent Dressings] Itching and Dermatitis Please use [id number] ??? Penicillins ??? Person Interviewed: adult eyewear manufacturing supervisor ??? Quality of Interview/accuracy of medication list: [...] list with information provided by patients adult eyewear manufacturing supervisor, Fannie Villarreal. Fannie reports also using Interdry [...] [place] [address] Hollie Ambriz MD [facility] [place] [address] documented as of this encounter Procedures Procedure [...] 5:47 AM EDT) Neutrophil % 48.3 % [facility] Neutrophil Absolute 2.57 1.70 - 6.10 x10(3)/[facility] LABORAT[facility] Lymph % 42.1 % [facility] Lymphocytes Abs 2.2 0.9 - 3.2 x10(3)/[facility] LABORATORY Monocyte % 6.4 % [facility] Monocyte Abs 0.3 0.3 - 0.9 x10(3)/[facility] LABORATORY Eos % 2.6 % [facility] Eosinophils Abs 0.1 0.0 - 0.4 x10(3)/[facility] LABORATORY Basophil % 0.4 % [facility] Baso Absolute 0.0 0.0 - 0.1 x10(3)/[facility] LABORATORY Immature Gran % 0.20 % [facility] Comment: Immature granulocytes(IG's)percentage and absolute count will include metamyelocytes, myelocytes, and promyelocytes. Blood smears from CBCs yielding IG's will be scanned manually for concordance. If this scan disagrees with the automated IG or if promyelocytes are noted, a manual differential will be performed. Immature Gran Absolute 0.01 0.00 - 0.04 x10(3)/[facility] LABORATORY Blood 08/01/2022 5:47 AM EDT 08/01/2022 6:03 AM EDT Narrative Resulting Agency Comment Spec In Lab Jody Collins [place] [address] * (ABNORMAL) Hemogram (08/01/2022 5:47 AM EDT) White Blood Cell 5.3 4.0 - 9.5 x10(3)/mc L [facility] Red Blood Cell 3.99(L) 4.00 - 5.21 x10(6)/mc L [facility] Hemoglobin 9.9(L) 11.7 - 15.5 g/dL [facility] Hematocrit 32.2(L) 35.7 - 45.8 % [facility] Mean Cell Volume 80.7(L) 82.6 - 94.4 fL [facility] Mean Cell Hemoglobin 24.8(L) 27.1 - 32.0 pg [facility] Mean Cell Hemoglobin Concentration 30.7(L) 31.7 - 35.0 g/dL [facility] Platelet 329 145 - 357 x10(3)/mc L [facility] RDW Standard Deviation 53.1(H) 37.0 - 46.0 fL [facility] RDW coefficient of variation 18.1(H) 11.5 - 14.1 % [facility] Mean Platelet Volume 9.3 7.6 - 12.9 fL [facility] NRBC% auto 0.0 % [facility] NRBC Absolute 0.000 0.000 - 0.000 x10(3)/mc L [facility] Blood 08/01/2022 5:47 AM EDT 08/01/2022 6:03 AM EDT Narrative Resulting Agency Comment Spec In Lab Jody Collins MD [place] [address] * Blood culture (07/31/2022 1:09 PM EDT) Blood Culture No growth at 5 days. [facility] Blood STRUCTURE OF LEFT HAND / Unknown 07/31/2022 1:09 PM EDT 07/31/2022 2:09 PM EDT Comment:#2 Narrative Resulting Agency Comment Spec In Lab Jody Collins MD MICROBIOLOGY - BLOOD ORDERABLES Performing Organization Address City/[facility]/ZIP Co de Phone Number [facility] [place] [place] [address] * Blood culture (07/31/2022 1:04 PM EDT) Blood Culture No growth at 5 days. [facility] Blood STRUCTURE OF RIGHT HAND / Unknown 07/31/2022 1:04 PM EDT 07/31/2022 2:09 PM EDT Comment:#1 Narrative Resulting Agency Comment Spec In Lab Jody Collins MD MICROBIOLOGY - BLOOD ORDERABLES Performing Organization Address [facility] Co de Phone Number [facility] [place] [address] * Differential, Automated (07/31/2022 4:53 AM EDT) Neutrophil % 42.0 % [facility] Neutrophil Absolute 2.02 1.70 - 6.10 x10(3)/[facility] LABORATORY Lymph % 47.6 % [facility] Lymphocytes Abs 2.3 0.9 - 3.2 x10(3)/[facility] LABORATORY Monocyte % 7.3 % [facility] Monocyte Abs 0.4 0.3 - 0.9 x10(3)/[facility] LABORATORY Eos % 2.5 % [facility] Eosinophils Abs 0.1 0.0 - 0.4 x10(3)/[facility] LABORATORY Basophil % 0.4 % [facility] Baso Absolute 0.0 0.0 - 0.1 x10(3)/[facility] LABORATORY Immature Gran % 0.20 % [facility] Comment: Immature granulocytes(IG's)percentage and absolute count will include metamyelocytes, myelocytes, and promyelocytes. Blood smears from CBCs yielding IG's will be scanned manually for concordance. If this scan disagrees with the automated IG or if promyelocytes are noted, a manual differential will be performed. Immature Gran Absolute 0.01 0.00 - 0.04 x10(3)/[facility] LABORATORY Blood 07/31/2022 4:53 AM EDT 07/31/2022 5:07 AM EDT Narrative Resulting Agency Comment Spec In Lab Jody Collins MD HEMATOLOGY ORDERABLE S Performing Organization Address City/[facility]/ZIP Co de Phone Number [facility] [place] [address] * (ABNORMAL) Hemogram (07/31/2022 4:53 AM EDT) White Blood Cell 4.8 4.0 - 9.5 x10(3)/mc L [facility] Red Blood Cell 4.16 4.00 - 5.21 x10(6)/mc L [facility] Hemoglobin 10.3(L) 11.7 - 15.5 g/dL [facility] Hematocrit 33.3(L) 35.7 - 45.8 % [facility] Mean Cell Volume 80.0(L) 82.6 - 94.4 fL [facility] Mean Cell Hemoglobin 24.8(L) 27.1 - 32.0 pg [facility] Mean Cell Hemoglobin Concentration 30.9(L) 31.7 - 35.0 g/dL [facility] Platelet 302 145 - 357 x10(3)/mc L [facility] RDW Standard Deviation 53.7(H) 37.0 - 46.0 fL [facility] RDW coefficient of variation 18.5(H) 11.5 - 14.1 % [facility] Mean Platelet Volume 9.2 7.6 - 12.9 fL [facility] NRBC% auto 0.0 % [facility] NRBC Absolute 0.000 0.000 - 0.000 x10(3)/mc L [facility] Blood 07/31/2022 4:53 AM EDT 07/31/2022 5:07 AM EDT Narrative Resulting Agency Comment Spec In Lab Jody Collins MD HEMATOLOGY ORDERABLE S Performing Organization Address City/[facility]/ZIP Co de Phone Number [facility] [place] [address] * (ABNORMAL) CRP, acute inflammation (07/31/2022 4:53 AM EDT) C-Reactive Protein 28.8(H) <=4.9 mg/L [facility] Comment:result rechecked-KS Blood 07/31/2022 4:53 AM EDT 07/31/2022 5:07 AM EDT Narrative Resulting Agency Comment Spec In Lab Jody Collins MD CHEMISTRY ORDERABLES [facility] [place] [place] [address] * (ABNORMAL) Basic Metabolic Panel (non-fasting) (07/31/2022 4:53 AM EDT) Glucose 88 65 - 199 mg/dL [facility] Comment:Diabetes: >=200 mg/d L plus symptoms Blood Urea Nitrogen 11 8 - 18 mg/dL [facility] Comment:result rechecked-KS Creatinine 0.29(L) 0.70 - 1.20 mg/dL [facility] Sodium 138 135 - 145 mmol/L [facility] Potassium 3.9 3.5 - 5.0 mmol/L [facility] Comment: Please note: ??Patients with WBC >100,000 may have falsely elevated Potassium levels. ??For accurate Potassium quantification in these patients send serum separator tube (gold top) for subsequent determinations. ??Contact the Clinical Chemistry Laboratory if there are any questions. Chloride 103 98 - 107 mmol/L [facility] Carbon Dioxide 24 22 - 31 mmol/L [facility] Anion Gap 11 5 - 15 mmol/L [facility] Calcium 9.3 8.5 - 10.5 mg/dL [facility] Est Glomerular Filtration Rate 148 >=60 mL/min/1. 73 m?? [facility] [...] In Lab Jody Collins MD CHEMISTRY ORDERABLES [facility] [place] [place] [address] * Differential, Automated (07/30/2022 5:14 AM EDT) Neutrophil % 44.1 % [facility] Neutrophil Absolute 1.79 1.70 - 6.10 x10(3)/[facility] LABORATORY Lymph % 42.9 % [facility] Lymphocytes Abs 1.7 0.9 - 3.2 x10(3)/[facility] LABORATORY Monocyte % 9.1 % [facility] Monocyte Abs 0.4 0.3 - 0.9 x10(3)/[facility] LABORATORY Eos % 3.2 % [facility] Eosinophils Abs 0.1 0.0 - 0.4 x10(3)/[facility]ATORY Basophil % 0.5 % [facility] Baso Absolute 0.0 0.0 - 0.1 x10(3)/[facility] LABORATORY Immature Gran % 0.20 % [facility] Comment: Immature granulocytes(IG's)percentage and absolute count will include metamyelocytes, myelocytes, and promyelocytes. Blood smears from CBCs yielding IG's will be scanned manually for concordance. If this scan disagrees with the automated IG or if promyelocytes are noted, a manual differential will be performed. Immature Gran Absolute 0.01 0.00 - 0.04 x10(3)/[facility] LABORATORY Blood 07/30/2022 5:14 AM EDT 07/30/2022 5:38 AM EDT Narrative Resulting Agency Comment Spec In Lab Jody Collins MD HEMATOLOGY ORDERABLE S [facility] [place] [place] [address] * (ABNORMAL) Hemogram (07/30/2022 5:14 AM EDT) White Blood Cell 4.1 4.0 - 9.5 x10(3)/ L [facility] Red Blood Cell 4.02 4.00 - 5.21 x10(6)/mc L [facility] Hemoglobin 9.9(L) 11.7 - 15.5 g/dL [facility] Hematocrit 31.7(L) 35.7 - 45.8 % [facility] Mean Cell Volume 78.9(L) 82.6 - 94.4 fL [facility] Mean Cell Hemoglobin 24.6(L) 27.1 - 32.0 pg [facility] Mean Cell Hemoglobin Concentration 31.2(L) 31.7 - 35.0 g/dL [facility] Platelet 305 145 - 357 x10(3)/mc L [facility] RDW Standard Deviation 53.1(H) 37.0 - 46.0 fL [facility] RDW coefficient of variation 18.5(H) 11.5 - 14.1 % [facility] Mean Platelet Volume 9.6 7.6 - 12.9 fL [facility] NRBC% auto 0.0 % [facility] NRBC Absolute 0.000 0.000 - 0.000 x10(3)/ L [facility] Blood 07/30/2022 5:14 AM EDT 07/30/2022 5:38 AM EDT Narrative Resulting Agency Comment Spec In Lab Jody Collins MD HEMATOLOGY ORDERABLE S [facility] [place] [address] * Blood culture (07/30/2022 5:14 AM EDT) Blood Culture No growth at 5 days. [facility] Blood STRUCTURE OF LEFT HAND / Unknown 07/30/2022 5:14 AM EDT 07/30/2022 6:38 AM EDT Narrative Resulting Agency Comment Spec In Lab Yury Saavedra MD MICROBIOLOGY - BLOO D ORDERABLES Performing Organization Address City/[facility]/ZIP Co de Phone Number [facility] [place] [address] * Phosphorus (07/28/2022 11:27 PM EDT) Pathologist [facility] Phosphorus 4.2 2.5 - 4.5 mg/dL [facility] Blood Venous Draw / Unknown 07/28/2022 11:27 PM EDT 07/28/2022 11:44 PM EDT Narrative Resulting Agency Comment Spec In Lab Shea Fox MD CHEMISTRY ORDERABLES Performing Organization Address [facility] Co de Phone Number [facility] [place] [address] * Magnesium (07/28/2022 11:27 PM EDT) Pathologist [facility] Magnesium 0.73 0.69 - 1.07 mmol/L [facility] Blood Venous Draw / Unknown 07/28/2022 11:27 PM EDT 07/28/2022 11:44 PM EDT Narrative Resulting Agency Comment Spec In Lab Shea Fox MD CHEMISTRY ORDERABLES Performing Organization Address [facility] Co de Phone Number [facility] [place] [address] * Differential, Automated (07/28/2022 11:27 PM EDT) Neutrophil % 51.2 % [facility] Neutrophil Absolute 2.52 1.70 - 6.10 x10(3)/[facility] LABORATORY Lymph % 37.3 % [facility] Lymphocytes Abs 1.8 0.9 - 3.2 x10(3)/[facility] LABORATORY Monocyte % 9.1 % [facility] Monocyte Abs 0.4 0.3 - 0.9 x10(3)/[facility] LABORATORY Eos % 1.4 % [facility] Eosinophils Abs 0.1 0.0 - 0.4 x10(3)/[facility]ORATORY Basophil % 0.6 % [facility] Baso Absolute 0.0 0.0 - 0.1 x10(3)/[facility] LABORATORY Immature Gran % 0.40 % [facility] Comment: Immature granulocytes(IG's)percentage and absolute count will include metamyelocytes, myelocytes, and promyelocytes. Blood smears from CBCs yielding IG's will be scanned manually for concordance. If this scan disagrees with the automated IG or if promyelocytes are noted, a manual differential will be performed. Immature Gran Absolute 0.02 0.00 - 0.04 x10(3)/[facility] LABORATORY Blood 07/28/2022 11:2 7 PM EDT 07/28/2022 11:34 PM EDT Narrative Resulting Agency Comment Spec In Lab Shea Fox MD HEMATOLOGY ORDERABLE S Performing Organization Address City/State/[facility] Co de Phone Number [facility] [place] [address] * (ABNORMAL) Hemogram (07/28/2022 11:27 PM EDT) White Blood Cell 4.9 4.0 - 9.5 x10(3)/[facility] LABORATORY Red Blood Cell 4.06 4.00 - 5.21 x10(6)/[facility] LABORATORY Hemoglobin 10.0(L) 11.7 - 15.5 g/dL [facility] Hematocrit 32.3(L) 35.7 - 45.8 % [facility] Mean Cell Volume 79.6(L) 82.6 - 94.4 fL [facility] Mean Cell Hemoglobin 24.6(L) 27.1 - 32.0 pg [facility] Mean Cell Hemoglobin Concentration 31.0(L) 31.7 - 35.0 g/dL [facility] Platelet 303 145 - 357 x10(3)/[facility] LABORATORY RDW Standard Deviation 53.3(H) 37.0 - 46.0 fL [facility] RDW coefficient of variation 18.5(H) 11.5 - 14.1 % [facility] Mean Platelet Volume 9.2 7.6 - 12.9 fL [facility] NRBC% auto 0.0 % [facility] NRBC Absolute 0.000 0.000 - 0.000 x10(3)/mc L [facility] Blood 07/28/2022 11:2 7 PM EDT 07/28/2022 11:34 PM EDT Narrative Resulting Agency Comment Spec In Lab Shea Fox MD HEMATOLOGY ORDERABLE S [facility] [address] [place] [address] * (ABNORMAL) Blood culture (07/28/2022 11:27 PM EDT) Blood Culture Pseudomonas oryzihabitans isolated Isolate saved. If future testing is required, contact the Microbiology Ortho Tech. (A) [facility] Gram Stain Aerobic Growth detected in aerobic bottle. Gram Negative Rods seen Results called to and read back by Guerita Quinonez RN ??07/30/22 02:02:27 (A) [facility] Organism Pseudomonas oryzihabitans(A) [facility] Organism Gram Negative Rods(A) [facility] Blood 07/28/2022 11:2 7 PM [...] MICROBIOLOGY - BLOOD ORDERABLES Performing Organization Address City/[facility] Co de Phone Number [facility] [place] [address] * Lactate, whole blood, send to lab ([facility] (07/28/2022 11:27 PM EDT) Lactate WB 1.7 0.5 - 2.2 mmol/L [facility] Blood 07/28/2022 11:2 7 PM EDT 07/28/2022 11:33 PM EDT Narrative Resulting Agency Comment Spec In Lab Shea Fox MD CHEMISTRY ORDERABLES Performing Organization Address [facility] Co de Phone Number [facility] [place] [address] * Lipase (07/28/2022 11:27 PM EDT) Lipase 29 0 - 60 unit/L [facility] Blood 07/28/2022 11:2 7 PM EDT 07/28/2022 11:34 PM EDT Narrative Resulting Agency Comment Spec In Lab Shea Fox MD CHEMISTRY ORDERABLES Performing Organization Address [facility] Co de Phone Number [facility] [place] [address] * (ABNORMAL) Comprehensive metabolic panel (non-fasting) (07/28/2022 11:27 PM EDT) Glucose 98 65 - 199 mg/dL [facility] Comment:Diabetes: >=200 mg/d L plus symptoms Blood Urea Nitrogen 7(L) 8 - 18 mg/dL [facility] Creatinine 0.30(L) 0.70 - 1.20 mg/dL [facility] Sodium 138 135 - 145 mmol/L [facility] Potassium 3.9 3.5 - 5.0 mmol/L [facility] Comment: Please note: ??Patients with WBC >100,000 may have falsely elevated Potassium levels. ??For accurate Potassium quantification in these patients send serum separator tube (gold top) for subsequent determinations. ??Contact the Clinical Chemistry Laboratory if there are any questions. Chloride 102 98 - 107 mmol/L [facility] Carbon Dioxide 25 22 - 31 mmol/L [facility] Anion Gap 11 5 - 15 mmol/L [facility] Calcium 9.2 8.5 - 10.5 mg/dL [facility] Protein, Total 7.3 6.1 - 8.0 g/dL [facility] Albumin 3.6 3.2 - 5.2 g/dL [facility] Aspartate Aminotransferase 35(H) 0 - 30 unit/L [facility] Alanine Aminotransferase 42(H) 0 - 30 unit/L [facility] Alkaline Phosphatase 182(H) 35 - 105 unit/L [facility] Bilirubin, Total 0.2 0.2 - 1.3 mg/dL [facility] Est Glomerular Filtration Rate 147 >=60 mL/min/1. 73 m?? [facility] [...] In Lab Shea Fox MD CHEMISTRY ORDERABLES [facility] [place] [address] * (ABNORMAL) CRP, acute inflammation (07/28/2022 11:27 PM EDT) C-Reactive Protein 51.5(H) <=4.9 mg/L [facility] Blood 07/28/2022 11:2 7 PM EDT 07/28/2022 11:44 PM EDT Narrative Resulting Agency Comment Spec In Lab Jody Collins MD CHEMISTRY ORDERABLES Performing Organization Address [facility] Co de Phone Number [facility] [place] [address] * Urinalysis with reflex Culture (07/28/2022 11:20 PM EDT) Glucose, Urine Dipstick Negative Negative mg/dL [facility] Protein, Urine Dipstick Negative Negative mg/dL [facility] Bilirubin, Urine Dipstick Negative Negative mg/dL [facility] Comment: Clinical correlation required for positive Urine Bilirubin results as false positive may occur with some drugs and drug related products. If a false positive is suspected a serum total bilirubin should be considered if clinically indicated. Urobilinogen, Urine Dipstick Normal Normal mg/dL [facility] pH, Urn (dipstick) 7.5 5.0 - 8.0 [facility] Blood, Urine Dipstick Negative Negative mg/dL [facility] Ketone, Urine Dipstick Negative Negative mg/dL [facility] Nitrite, Urine Dipstick Negative Negative [facility] Leukocytes, Urine Dipstick Negative Negative mcL [facility] Appearance, Urine Dipstick Clear Clear [facility] Specific [place] Urine Automated 1.013 1.005 - 1.030 [facility] Color, Urine Dipstick Yellow Yellow [facility] Reflex to Culture No [facility] Straight Catheter Urine 07/28/2022 11:20 PM EDT 07/29/2022 12:04 AM EDT Narrative Resulting Agency Comment Spec In Lab Shea Fox MD URINE ORDERABLES Performing Organization Address City/[facility]/ZIP Co de Phone Number [facility] [place] [place] [address] * Blood culture (07/28/2022 11:11 PM EDT) Blood Culture No growth at 5 days. [facility] Blood 07/28/2022 11:1 1 PM EDT 07/29/2022 12:17 AM EDT Comment:R hand Narrative Resulting Agency Comment Spec In Lab Shea Fox MD MICROBIOLOGY - BLOOD ORDERABLES [facility] [place] [place] [address] * XR Chest One View (07/28/2022 8:11 [...] ? Electronically signed by: FAINA GALLEGO MD, [facility] ??([phone]), at 07/28/2022 8:32 PM Narrative 07/28/2022 8:32 [...] first. Electronically signed by: FAINA GALLEGO MD, [facility]([phone]), at 07/28/2022 8:32 PM Jody Collins MD IMG DX ORDERABLES * (ABNORMAL) Respiratory Panel PCR (07/28/2022 8:01 PM EDT) Respiratory Panel Source [employer] [facility] Respiratory Panel PCR Positive(A) Negative [facility] Comment: Respiratory Panels are performed on the Designer Material, using multiplexed PCR nucleic acid detection. ??Negative results do not preclude respiratory infection and should not be used as the sole basis for diagnosis, treatment or other management decisions. Adenovirus Not Detected Not Detected [facility] Coronavirus HKU1 Not Detected Not Detected [facility] Coronavirus NL63 Not Detected Not Detected [facility] Coronavirus 229E Not Detected Not Detected [facility] Coronavirus OC43 Not Detected Not Detected [facility] SARS-CoV-2 Not Detected Not Detected [facility] Comment: Testing for SARS-CoV-2 (Severe acute respiratory syndrome coronavirus 2) to aid in the diagnosis of COVID-19 is performed using the [employer] Respiratory Panel 2.1 (Touchstorm) as authorized by the FDA issued Emergency Use Authorization (EUA). This panel also tests for multiple other viral and bacterial pathogens. This assay is intended for In-vitro Diagnostic (IVD) use with nasopharyngeal swabs in viral transport media. The assay is performed based on the instructions for use and additional guidance provided by the FDA. Testing is performed in laboratories within the [facility], each of which is certified under [...] fact sheets at the following FDA website: https://www.fda.gov/medical-devices/anrvhwbyrmn-imluqzx-1508-lkqfn-12-goofdeukk- use-a oyyqdnuavacah-ztqiyao-eocdwyk/jgkmc-tuoqetnigdb-hbyj Human Metapneumovirus Not Detected Not Detected [facility] Human Rhinovirus/Enterov irus Detected(A) Not Detected [facility] [facility] Influenza A Not Detected Not Detected [facility] Influenza B Not Detected Not Detected [facility] Parainfluenza 1 Not Detected Not Detected [facility] Parainfluenza 2 Not Detected Not Detected [facility] Parainfluenza 3 Not Detected Not Detected [facility] Parainfluenza 4 Not Detected Not Detected [facility] Respiratory Syncytial Virus Not Detected Not Detected [facility] Chlamydophila pneumoniae Not Detected Not Detected [facility] Mycoplasma pneumoniae Not Detected Not Detected [facility] Nasopharyngeal Swab Other / Unknown 07/28 8:01 PM EDT 07/28/2022 8:29 PM EDT Comment:Symptoms->Fever / Re spiratory Symptoms Narrative Resulting Agency Comment Spec In Lab Shea Fox MD MICROBIOLOGY - [facility] AL ORDERABLES [facility] [place] [address] * COVID-19 PCR (07/28/2022 8:01 PM EDT) SARS-CoV-2 RNA (Rapid) Not Detected Not Detected [facility] Comment: This result should be [...] using the Simplexa COVID-19 Direct Assay by [employer] as authorized by the FDA issued Emergency [...] Department of Pathology and Laboratory Medicine at [facility], certified under the Clinical Laboratory [...] fact sheets at the following FDA website: https://www.fda.gov/medical-devices/klzxtykidbk-uefoaqc-9639-zmosf-79-glbrghzpm- use-a pigryscsiemnt-svkdkkl-wcjqwco/ivngj-klknomzhjgd-ajqa SARS-CoV-2 Source [employer] Swab [facility] Nasopharyngeal Swab 07/29/19 8:01 PM EDT 07/28/2022 8:29 PM EDT Comment:Symptoms->Fever / Re spiratory Symptoms Narrative Resulting Agency Comment Spec In Lab Jody Collins MD MICROBIOLOGY - GENER AL ORDERABLES Performing Organization Address City/State/[facility] Co de Phone Number [facility] [place] [address] * CT Lumbar Spine w Contrast (07/28/2022 [...] 5:02 AM EDT) Neutrophil % 52.9 % [facility] Neutrophil Absolute 2.31 1.70 - 6.10 x10(3)/[facility] Lymph % 34.3 % [facility] Lymphocytes Abs 1.5 0.9 - 3.2 x10(3)/[facility] Monocyte % 11.2 % [facility] Monocyte Abs 0.5 0.3 - 0.9 x10(3)/[facility] Eos % 1.1 % [facility] Eosinophils Abs 0.0 0.0 - 0.4 x10(3)/[facility] Basophil % 0.5 % [facility] Baso Absolute 0.0 0.0 - 0.1 x10(3)/[facility] Immature Gran % 0.00 % [facility] Comment: Immature granulocytes(IG's)percentage and absolute count will include metamyelocytes, myelocytes, and promyelocytes. Blood smears from CBCs yielding IG's will be scanned manually for concordance. If this scan disagrees with the automated IG or if promyelocytes are noted, a manual differential will be performed. Immature Gran Absolute 0.00 0.00 - 0.04 x10(3)/[facility] Blood 07/28/2022 5:02 AM EDT 07/28/2022 5:24 AM EDT Narrative Resulting Agency Comment Spec In Lab Jody Collins MD HEMATOLOGY ORDERABLE S [facility] [place] [address] * (ABNORMAL) Hemogram (07/28/2022 5:02 AM EDT) White Blood Cell 4.4 4.0 - 9.5 x10(3)/mc L [facility] Red Blood Cell 3.83(L) 4.00 - 5.21 x10(6)/mc L [facility] Hemoglobin 9.5(L) 11.7 - 15.5 g/dL [facility] Hematocrit 30.3(L) 35.7 - 45.8 % [facility] Mean Cell Volume 79.1(L) 82.6 - 94.4 fL [facility] Mean Cell Hemoglobin 24.8(L) 27.1 - 32.0 pg [facility] Mean Cell Hemoglobin Concentration 31.4(L) 31.7 - 35.0 g/dL [facility] Platelet 295 145 - 357 x10(3)/mc L [facility] RDW Standard Deviation 53.1(H) 37.0 - 46.0 fL [facility] RDW coefficient of variation 18.3(H) 11.5 - 14.1 % [facility] Mean Platelet Volume 9.5 7.6 - 12.9 fL [facility] NRBC% auto 0.0 % [facility] NRBC Absolute 0.000 0.000 - 0.000 x10(3)/mc L [facility] Blood 07/28/2022 5:02 AM EDT 07/28/2022 5:24 AM EDT Narrative Resulting Agency Comment Spec In Lab Jody Collins MD HEMATOLOGY ORDERABLE S [facility] [place] [address] * (ABNORMAL) CRP, acute inflammation (07/28/2022 5:02 AM EDT) C-Reactive Protein 33.1(H) <=4.9 mg/L [facility] Blood 07/28/2022 5:02 AM EDT 07/28/2022 5:24 AM EDT Narrative Resulting Agency Comment Spec In Lab Jody Collins MD CHEMISTRY ORDERABLES [facility] [place] [address] * (ABNORMAL) Basic Metabolic Panel (non-fasting) (07/28/2022 5:02 AM EDT) Glucose 91 65 - 199 mg/dL [facility] Comment:Diabetes: >=200 mg/d L plus symptoms Blood Urea Nitrogen 10 8 - 18 mg/dL [facility] Creatinine 0.28(L) 0.70 - 1.20 mg/dL [facility] Sodium 138 135 - 145 mmol/L [facility] Potassium 4.0 3.5 - 5.0 mmol/L [facility] Comment: Please note: ??Patients with WBC >100,000 may have falsely elevated Potassium levels. ??For accurate Potassium quantification in these patients send serum separator tube (gold top) for subsequent determinations. ??Contact the Clinical Chemistry Laboratory if there are any questions. Chloride 103 98 - 107 mmol/L [facility] Carbon Dioxide 25 22 - 31 mmol/L [facility] Anion Gap 10 5 - 15 mmol/L [facility] Calcium 8.8 8.5 - 10.5 mg/dL [facility] Est Glomerular Filtration Rate 150 >=60 mL/min/1. 73 m?? [facility] Collins MD CHEMISTRY ORDERABLES Performing Organization Address City/[facility]/[place] [address] * Differential, Automated (07/27/2022 2:45 AM EDT) Neutrophil % 48.7 % [facility] Neutrophil Absolute 2.57 1.70 - 6.10 x10(3)/[facility] Lymph % 40.6 % [facility] Lymphocytes Abs 2.1 0.9 - 3.2 x10(3)/[facility] Monocyte % 8.2 % [facility] Monocyte Abs 0.4 0.3 - 0.9 x10(3)/[facility] Eos % 1.5 % [facility] Eosinophils Abs 0.1 0.0 - 0.4 x10(3)/[facility] Basophil % 0.8 % [facility] Baso Absolute 0.0 0.0 - 0.1 x10(3)/[facility] Immature Gran % 0.20 % [facility] Comment: Immature granulocytes(IG's)percentage and absolute count will include metamyelocytes, myelocytes, and promyelocytes. Blood smears from CBCs yielding IG's will be scanned manually for concordance. If this scan disagrees with the automated IG or if promyelocytes are noted, a manual differential will be performed. Immature Gran Absolute 0.01 0.00 - 0.04 x10(3)/[facility] Blood 07/27/2022 2:45 AM EDT 07/27/2022 2:52 AM EDT Narrative Resulting Agency Comment Spec In Lab Jody Collins MD HEMATOLOGY ORDERABLE S Performing Organization Address City/[facility]/ZIP Co de Phone Number [facility] [address] * (ABNORMAL) Hemogram (07/27/2022 2:45 AM EDT) White Blood Cell 5.3 4.0 - 9.5 x10(3)/mc L [facility] Red Blood Cell 4.27 4.00 - 5.21 x10(6)/mc L [facility] Hemoglobin 10.4(L) 11.7 - 15.5 g/dL [facility] Hematocrit 33.6(L) 35.7 - 45.8 % [facility] Mean Cell Volume 78.7(L) 82.6 - 94.4 fL [facility] Mean Cell Hemoglobin 24.4(L) 27.1 - 32.0 pg [facility] Mean Cell Hemoglobin Concentration 31.0(L) 31.7 - 35.0 g/dL [facility] Platelet 350 145 - 357 x10(3)/mc L [facility] RDW Standard Deviation 52.4(H) 37.0 - 46.0 fL [facility] RDW coefficient of variation 18.3(H) 11.5 - 14.1 % [facility] Mean Platelet Volume 9.4 7.6 - 12.9 fL [facility] NRBC% auto 0.0 % [facility] NRBC Absolute 0.000 0.000 - 0.000 x10(3)/mc L [facility] Blood 07/27/2022 2:45 AM EDT 07/27/2022 2:52 AM EDT Narrative Resulting Agency Comment Spec In Lab Jody Collins MD HEMATOLOGY ORDERABLE S [facility] [place] [address] * Lactate, whole blood, send to lab ([facility] (07/27/2022 2:45 AM EDT) Lactate WB 1.2 0.5 - 2.2 mmol/L [facility] Blood 07/27/2022 2:45 AM EDT 07/27/2022 2:50 AM EDT Narrative Resulting Agency Comment Spec In Lab Shea Fox MD CHEMISTRY ORDERABLES Performing Organization Address [facility] Co de Phone Number [facility] [place] [address] * Magnesium (07/27/2022 2:45 AM EDT) Magnesium 0.78 0.69 - 1.07 mmol/L [facility] Blood 07/27/2022 2:45 AM EDT 07/27/2022 2:52 AM EDT Narrative Resulting Agency Comment Spec In Lab Sharron Winters MD CHEMISTRY ORDERABLES Performing Organization Address [facility] de Phone Number [facility] [place] [address] * (ABNORMAL) CRP, acute inflammation (07/27/2022 2:45 AM EDT) C-Reactive Protein 27.0(H) <=4.9 mg/L [facility] Blood 07/27/2022 2:45 AM EDT 07/27/2022 2:52 AM EDT Narrative Resulting Agency Comment Spec In Lab Jody Collins MD CHEMISTRY ORDERABLES Performing Organization Address [facility] de Phone Number [facility] [place] [address] * (ABNORMAL) Sedimentation rate (07/27/2022 2:45 AM EDT) Sedimentation Rate Automated 105(H) 2 - 37 mm/hr [facility] Comment: Effective April 06, 2019 new capillary photometric technology has resulted in a change in reference ranges. It is recommended that each ESR result be reviewed with its own age appropriate reference range. Blood 07/27/2022 2:45 AM EDT 07/27/2022 2:52 AM EDT Narrative Resulting Agency Comment Spec In Lab Jody Collins MD HEMATOLOGY ORDERABLE S Performing Organization Address [facility] Co de Phone Number [facility] [place] [address] * (ABNORMAL) Basic Metabolic Panel (non-fasting) (07/27/2022 2:45 AM EDT) Glucose 105 65 - 199 mg/dL [facility] Comment:Diabetes: >=200 mg/d L plus symptoms Blood Urea Nitrogen 12 8 - 18 mg/dL [facility] Creatinine 0.35(L) 0.70 - 1.20 mg/dL [facility] Sodium 139 135 - 145 mmol/L [facility] Potassium 4.1 3.5 - 5.0 mmol/L [facility] Comment: Please note: ??Patients with WBC >100,000 may have falsely elevated Potassium levels. ??For accurate Potassium quantification in these patients send serum separator tube (gold top) for subsequent determinations. ??Contact the Clinical Chemistry Laboratory if there are any questions. Chloride 103 98 - 107 mmol/L [facility] Carbon Dioxide 25 22 - 31 mmol/L [facility] Anion Gap 11 5 - 15 mmol/L [facility] Calcium 9.3 8.5 - 10.5 mg/dL [facility] Est Glomerular Filtration Rate 142 >=60 mL/min/1. 73 m?? [facility] Collins MD CHEMISTRY ORDERABLES Performing Organization Address [facility] Co de Phone Number [facility] [place] [address] * Differential, Automated (07/26/2022 4:46 AM EDT) Pathologist [facility] Neutrophil % 46.4 % [facility] Neutrophil Absolute 2.25 1.70 - 6.10 x10(3)/[facility] Lymph % 43.0 % [facility] Lymphocytes Abs 2.1 0.9 - 3.2 x10(3)/[facility] Monocyte % 8.0 % [facility] Monocyte Abs 0.4 0.3 - 0.9 x10(3)/[facility] Eos % 1.6 % [facility] Eosinophils Abs 0.1 0.0 - 0.4 x10(3)/[facility] Basophil % 0.8 % [facility] Baso Absolute 0.0 0.0 - 0.1 x10(3)/[facility] Immature Gran % 0.20 % [facility] Comment: Immature granulocytes(IG's)percentage and absolute count will include metamyelocytes, myelocytes, and promyelocytes. Blood smears from CBCs yielding IG's will be scanned manually for concordance. If this scan disagrees with the automated IG or if promyelocytes are noted, a manual differential will be performed. Immature Gran Absolute 0.01 0.00 - 0.04 x10(3)/[facility] Blood 07/26/2022 4:46 AM EDT 07/26/2022 5:23 AM EDT Narrative Resulting Agency Comment Spec In Lab Jody Collins MD HEMATOLOGY ORDERABLE S [facility] [place] [address] * (ABNORMAL) Hemogram (07/26/2022 4:46 AM EDT) Pathologist [facility] White Blood Cell 4.9 4.0 - 9.5 x10(3)/mc L [facility] Red Blood Cell 4.07 4.00 - 5.21 x10(6)/mc L [facility] Hemoglobin 10.1(L) 11.7 - 15.5 g/dL [facility] Hematocrit 31.9(L) 35.7 - 45.8 % [facility] Mean Cell Volume 78.4(L) 82.6 - 94.4 fL [facility] Mean Cell Hemoglobin 24.8(L) 27.1 - 32.0 pg [facility] Mean Cell Hemoglobin Concentration 31.7 31.7 - 35.0 g/dL [facility] Platelet 348 145 - 357 x10(3)/mc L [facility] RDW Standard Deviation 52.4(H) 37.0 - 46.0 fL [facility] RDW coefficient of variation 18.3(H) 11.5 - 14.1 % [facility] Mean Platelet Volume 9.6 7.6 - 12.9 fL [facility] NRBC% auto 0.0 % [facility] NRBC Absolute 0.000 0.000 - 0.000 x10(3)/mc L [facility] Blood 07/26/2022 4:46 AM EDT 07/26/2022 5:23 AM EDT Narrative Resulting Agency Comment Spec In Lab Jody Collins MD HEMATOLOGY ORDERABLE S Performing Organization Address City/[facility]/ZIP Co de Phone Number [facility] [place] [address] * (ABNORMAL) Sedimentation rate (07/26/2022 4:46 AM EDT) [facility] Sedimentation Rate Automated 102(H) 2 - 37 mm/hr [facility] Comment: Effective April 06, 2019 new capillary photometric technology has resulted in a change in reference ranges. It is recommended that each ESR result be reviewed with its own age appropriate reference range. Blood 07/26/2022 4:46 AM EDT 07/26/2022 5:23 AM EDT Narrative Resulting Agency Comment Spec In Lab Jody Collins MD HEMATOLOGY ORDERABLE S [facility] [place] [address] * (ABNORMAL) CRP, acute inflammation (07/26/2022 4:46 AM EDT) C-Reactive Protein 40.5(H) <=4.9 mg/L [facility] Blood 07/26/2022 4:46 AM EDT 07/26/2022 5:23 AM EDT Narrative Resulting Agency Comment Spec In Lab Jody Collins MD CHEMISTRY ORDERABLES [facility] [place] [address] * (ABNORMAL) Basic Metabolic Panel (non-fasting) (07/26/2022 4:46 AM EDT) Glucose 100 65 - 199 mg/dL [facility] Comment:Diabetes: >=200 mg/d L plus symptoms Blood Urea Nitrogen 13 8 - 18 mg/dL [facility] Creatinine 0.25(L) 0.70 - 1.20 mg/dL [facility] Sodium 139 135 - 145 mmol/L [facility] Potassium 3.8 3.5 - 5.0 mmol/L [facility] Comment: Please note: ??Patients with WBC >100,000 may have falsely elevated Potassium levels. ??For accurate Potassium quantification in these patients send serum separator tube (gold top) for subsequent determinations. ??Contact the Clinical Chemistry Laboratory if there are any questions. Chloride 103 98 - 107 mmol/L [facility] Carbon Dioxide 23 22 - 31 mmol/L [facility] Anion Gap 13 5 - 15 mmol/L [facility] Calcium 9.4 8.5 - 10.5 mg/dL [facility] Est Glomerular Filtration Rate 154 >=60 mL/min/1. 73 m?? [facility] [...] Collins MD CHEMISTRY ORDERABLES Performing Organization Address [facility] Co de Phone Number [facility] [place] [address] * EKG 12 Lead (07/25/2022 12:42 PM EDT) Pathologist [facility] Ventricular rate 106 BPM MUSE SYSTEM Atrial Rate 106 BPM MUSE SYSTEM P-R Interval 120 ms MUSE SYSTEM QRS Duration 74 ms MUSE SYSTEM Q-T Interval 328 ms MUSE SYSTEM QTC Calculated (Bezet) 435 ms MUSE SYSTEM Calculated P Rena Lara 22 degrees MUSE SYSTEM Calculated R Rena Lara 7 degrees MUSE SYSTEM Calculated T Rena Lara 25 degrees MUSE SYSTEM INTERPRETATION Sinus tachycardia Possible Inferior infarct (cited on or before 07-JUL-2022) Abnormal ECG When compared with ECG of 07-JUL-2022 11:44, Nonspecific T wave abnormality no longer evident in Anterior leads Confirmed by MD Chowdary Daniel ([id number]) on 08/07/2022 5:45:44 PM MUSE SYSTEM 07/25/2022 12:4 2 PM EDT 08/07/2022 5:45 PM EDT Jody Collins MD ECG ORDERABLES Performing Organization Address [facility] Co de Phone Number MUSE SYSTEM * Differential, Automated (07/25/2022 4:37 AM EDT) Pathologist [facility] Neutrophil % 54.4 % [facility] Neutrophil Absolute 2.66 1.70 - 6.10 x10(3)/[facility] Lymph % 35.0 % [facility] Lymphocytes Abs 1.7 0.9 - 3.2 x10(3)/[facility] Monocyte % 8.6 % [facility] Monocyte Abs 0.4 0.3 - 0.9 x10(3)/[facility] Eos % 1.0 % [facility] Eosinophils Abs 0.0 0.0 - 0.4 x10(3)/[facility] Basophil % 0.6 % [facility] Baso Absolute 0.0 0.0 - 0.1 x10(3)/[facility] Immature Gran % 0.40 % [facility] Comment: Immature granulocytes(IG's)percentage and absolute count will include metamyelocytes, myelocytes, and promyelocytes. Blood smears from CBCs yielding IG's will be scanned manually for concordance. If this scan disagrees with the automated IG or if promyelocytes are noted, a manual differential will be performed. Immature Gran Absolute 0.02 0.00 - 0.04 x10(3)/[facility] Blood 07/25/2022 4:37 AM EDT 07/25/2022 4:50 AM EDT Narrative Resulting Agency Comment Spec In Lab Eddi Vázquez MD HEMATOLOGY ORDERABLE S Performing Organization Address City/State/[facility] Co de Phone Number [facility] [place] [address] * (ABNORMAL) Hemogram (07/25/2022 4:37 AM EDT) White Blood Cell 4.9 4.0 - 9.5 x10(3)/mc L [facility] Red Blood Cell 4.16 4.00 - 5.21 x10(6)/mc L [facility] Hemoglobin 10.3(L) 11.7 - 15.5 g/dL [facility] Hematocrit 32.6(L) 35.7 - 45.8 % [facility] Mean Cell Volume 78.4(L) 82.6 - 94.4 fL [facility] Mean Cell Hemoglobin 24.8(L) 27.1 - 32.0 pg [facility] Mean Cell Hemoglobin Concentration 31.6(L) 31.7 - 35.0 g/dL [facility] Platelet 357 145 - 357 x10(3)/mc L [facility] RDW Standard Deviation 52.5(H) 37.0 - 46.0 fL [facility] RDW coefficient of variation 18.5(H) 11.5 - 14.1 % [facility] Mean Platelet Volume 9.6 7.6 - 12.9 fL [facility] NRBC% auto 0.0 % [facility] NRBC Absolute 0.000 0.000 - 0.000 x10(3)/mc L [facility] Blood 07/25/2022 4:37 AM EDT 07/25/2022 4:50 AM EDT Narrative Resulting Agency Comment Spec In Lab Eddi Vázquez MD HEMATOLOGY ORDERABLE S Performing Organization Address City/State/[facility] Co de Phone Number [facility] [place] [address] * (ABNORMAL) Basic Metabolic Panel (non-fasting) (07/25/2022 4:37 AM EDT) Glucose 99 65 - 199 mg/dL [facility] Comment:Diabetes: >=200 mg/d L plus symptoms Blood Urea Nitrogen 13 8 - 18 mg/dL [facility] Creatinine 0.49(L) 0.70 - 1.20 mg/dL [facility] Sodium 138 135 - 145 mmol/L [facility] Potassium 3.9 3.5 - 5.0 mmol/L [facility] Comment: Please note: ??Patients with WBC >100,000 may have falsely elevated Potassium levels. ??For accurate Potassium quantification in these patients send serum separator tube (gold top) for subsequent determinations. ??Contact the Clinical Chemistry Laboratory if there are any questions. Chloride 105 98 - 107 mmol/L [facility] Carbon Dioxide 23 22 - 31 mmol/L [facility] Anion Gap 10 5 - 15 mmol/L [facility] Calcium 8.9 8.5 - 10.5 mg/dL [facility] Est Glomerular [...] In Lab Eddi Vázquez MD [place] [address] * IR All Drainage Procedures (07/24/2022 4:02 PM EDT) Anatomical Region Laterality Modality X-Ray Angiograph y Impressions 07/25/2022 8:08 AM EDT Percutaneous placement of a 10 Georgian drainage catheter into subcutaneous collection adjacent to RIGHT SI joint screw, yielding 5 mL of bloody fluid. Percutaneous placement of a 8 Georgian drainage catheter into subcutaneous collection adjacent to [...] ? Electronically signed by: Anurag Kumar MD, [facility] ([phone]), at 07/25/2022 8:08 AM Narrative 07/25/2022 8:08 [...] complications. IMPRESSION Percutaneous placement of a 10 Georgian drainage catheter intosubcutaneous collection adjacent to RIGHT SI joint screw, yielding 5 mL of bloodyfluid. Percutaneous placement of a 8 Georgian drainage catheter into subcutaneous collection adjacent to [...] first. Electronically signed by: Anurag Kumar MD, [facility]([phone]), at 07/25/2022 8:08 AM Ernesto Willingham MD IMG IR ORDERABLES * Anaerobic Culture (07/24/2022 3:47 PM EDT) Anaerobic Culture No anaerobic organisms isolated [facility] Fluid 07/24/2022 3:47 PM EDT 07/24/2022 4:43 PM EDT Comment:SI/L5 Narrative Resulting Agency Comment Spec In Lab Anurag Kumar MD MICROBIOLOGY - GEN ERAL ORDERABLES [facility] [place] [address] * Crystal Exam Body Fluid Other (07/24/2022 3:47 PM EDT) Crystal BF Type Other [facility] Comment: Interpret with caution due to questionable sample integrity caused by sample age. Results may be inaccurate due to presence of many degenerated cells. Crystal Exam, Fld None Seen [facility] Other 07/24/2022 3:47 PM EDT 07/24/2022 4:31 PM EDT Narrative Resulting Agency Comment Spec In Lab Anurag Kumar MD BODY FLUIDS AND ST OOLS ORDERABLES [facility] [place] [address] * Cell Count Body Fluid Other (07/24/2022 3:47 PM EDT) Body Fluid Source Other [facility] Comment: Interpret with caution due to questionable sample integrity caused by sample age. Results may be inaccurate due to presence of many degenerated cells. Called by: [facility], Read back by: carlin alejo, Date/Time:07/24/22 17:51. Color, Fld Red [facility] Comment: Interpret with caution due to questionable sample integrity caused by sample age. Results may be inaccurate due to presence of many degenerated cells. Appearance, Fld Cloudy [facility] Comment: Interpret with caution due to questionable sample integrity caused by sample age. Results may be inaccurate due to presence of many degenerated cells. WBC Count, Fld Not Perf [facility] Comment: Interpret with caution due to questionable sample integrity caused by sample age. Results may be inaccurate due to presence of many degenerated cells. All body fluid results should always be interpreted in light of the total clinical presentation of the patient, including clinical history, data from additional tests and other appropriate information. Polymorphonuclear cells BF % Not Perf [facility] Comment: Interpret with caution due to questionable sample integrity caused by sample age. Results may be inaccurate due to presence of many degenerated cells. Polymorphonuclear cell percent and absolute values may contain Neutrophils, Eosinophils, and Basophils. Body fluid smear will be scanned manually for concordance. Mononuclear cells BF % Not Perf [facility] Comment: Interpret with caution due to questionable sample integrity caused by sample age. Results may be inaccurate due to presence of many degenerated cells. Mononuclear cell percent and absolute values may contain Lymphocytes and Monocytes. Body fluid smear will be scanned manually for concordance. Polymorphonuclear cells BF ABS Not Perf [facility] Comment: Interpret with caution due to questionable sample integrity caused by sample age. Results may be inaccurate due to presence of many degenerated cells. Polymorphonuclear cell percent and absolute values may contain Neutrophils, Eosinophils, and Basophils. Body fluid smear will be scanned manually for concordance. Mononuclear cells BF ABS Not Perf [facility] Comment: Interpret with caution due [...] FLUIDS AND [facility] [place] [address] * Abscess/Wound Aspirate Culture Abscess; Pelvic (07/24/2022 3:47 PM EDT) Abscess/Wound Aspirate Culture No growth [facility] Gram Stain Many Neutrophils seen No microorganisms seen. [facility] Abscess [place] / Unknown 07/24/2022 3:47 PM EDT 07/24/2022 4:43 PM EDT Comment:SI/L5 Narrative Resulting Agency Comment Spec In Lab Anurag Kumar MD MICROBIOLOGY - GEN ERAL ORDERABLES Performing Organization Address City/[facility]/ZIP Co de Phone Number [facility] [place] [address] * AFB culture (07/24/2022 3:22 PM EDT) Acid Fast Bacilli Culture No Acid Fast Bacilli isolated [facility] Acid Fast Stain No Acid Fast Bacilli seen [facility] Vertebra LUMBAR SPINE STRUCTURE / Unknown 07/24/2022 3:22 PM EDT 07/27/2022 12:32 PM EDT Comment:LUMBAR ABSCESS Narrative Resulting Agency Comment Spec In Lab Jody Collins MD MICROBIOLOGY - GENER AL ORDERABLES Performing Organization Address [facility] Co de Phone Number [facility] [place] [address] * Calcofluor White Stain (07/24/2022 3:22 PM EDT) Calcofluor Stain Calcofluor White Preparation: Negative [facility] Abscess LUMBAR SPINE STRUCTURE / Unknown 07/24/2022 3:22 PM EDT 07/27/2022 12:30 PM EDT Comment:Lumbar abscess Narrative Resulting Agency Comment Spec In Lab Jody Collins MD MICROBIOLOGY - GENER AL ORDERABLES Performing Organization Address City/[facility] Co de Phone Number [facility] [place] [place] [address] * Fungus culture (07/24/2022 3:22 PM EDT) Fungus Culture No Fungus isolated [facility] Abscess LUMBAR SPINE STRUCTURE / Unknown 07/24/2022 3:22 PM EDT 07/27/2022 12:30 PM EDT Comment:Lumbar abscess Narrative Resulting Agency Comment Spec In Lab Jody Collins MD MICROBIOLOGY - GENER AL ORDERABLES Performing Organization Address [facility] Co de Phone Number [facility] [place] [address] * Anaerobic Culture (07/24/2022 3:22 PM EDT) Anaerobic Culture No anaerobic organisms isolated [facility] Fluid 07/24/2022 3:22 PM EDT 07/24/2022 4:44 PM EDT Comment:Lumbar abscess Narrative Resulting Agency Comment Spec In Lab Mal Menchaca MD MICROBIOLOGY - GENER AL ORDERABLES Performing Organization Address [facility] Co de Phone Number [facility] [place] [address] * Body Fluid Culture, Aerobic (07/24/2022 3:22 PM EDT) Body Fluid Culture No growth [facility] Gram Stain Few Neutrophils seen No microorganisms seen. [facility] Fluid 07/24/2022 3:22 PM EDT 07/24/2022 4:44 PM EDT Comment:Lumbar abscess Narrative Resulting Agency Comment Spec In Lab Mal Menchaca MD MICROBIOLOGY - GENER AL ORDERABLES Performing Organization Address City/[facility] Co de Phone Number [facility] [place] [place] [address] * Crystal Exam Body Fluid Other (07/24/2022 3:22 PM EDT) Crystal BF Type Other [facility] Comment: Interpret with caution due to questionable sample integrity caused by sample age. Results may be inaccurate due to presence of many degenerated cells. Crystal Exam, Fld None Seen [facility] Other 07/24/2022 3:22 PM EDT 07/24/2022 4:34 PM EDT Narrative Resulting Agency Comment Spec In Lab Ernesto Willingham MD BODY FLUIDS AND [place] ORDERABLES [facility] [place] [address] * Cell Count Body Fluid Other (07/24/2022 3:22 PM EDT) Body Fluid Source Other [facility] Comment: Interpret with caution due to questionable sample integrity caused by sample age. Results may be inaccurate due to presence of many degenerated cells. Called by: millicent, Read back by: carlin alejo, Date/Time:07/24/22 17:51. Color, Fld Red [facility] Comment: Interpret with caution due to questionable sample integrity caused by sample age. Results may be inaccurate due to presence of many degenerated cells. Appearance, Fld Cloudy [facility] Comment: Interpret with caution due to questionable sample integrity caused by sample age. Results may be inaccurate due to presence of many degenerated cells. WBC Count, Fld Not Perf [facility] Comment: Interpret with caution due to questionable sample integrity caused by sample age. Results may be inaccurate due to presence of many degenerated cells. All body fluid results should always be interpreted in light of the total clinical presentation of the patient, including clinical history, data from additional tests and other appropriate information. Polymorphonuclear cells BF % Not Perf [facility] Comment: Interpret with caution due to questionable sample integrity caused by sample age. Results may be inaccurate due to presence of many degenerated cells. Polymorphonuclear cell percent and absolute values may contain Neutrophils, Eosinophils, and Basophils. Body fluid smear will be scanned manually for concordance. Mononuclear cells BF % Not Perf [facility] Comment: Interpret with caution due to questionable sample integrity caused by sample age. Results may be inaccurate due to presence of many degenerated cells. Mononuclear cell percent and absolute values may contain Lymphocytes and Monocytes. Body fluid smear will be scanned manually for concordance. Polymorphonuclear cells BF ABS Not Perf [facility] Comment: Interpret with caution due to questionable sample integrity caused by sample age. Results may be inaccurate due to presence of many degenerated cells. Polymorphonuclear cell percent and absolute values may contain Neutrophils, Eosinophils, and Basophils. Body fluid smear will be scanned manually for concordance. Mononuclear cells BF ABS Not Perf [facility] Comment: Interpret with caution due [...] MD BODY FLUIDS AND STOO LS ORDERABLES [facility] [place] [address] * Differential, Automated (07/24/2022 5:25 AM EDT) Neutrophil % 46.6 % [facility] Neutrophil Absolute 2.04 1.70 - 6.10 x10(3)/[facility] Lymph % 42.9 % [facility] Lymphocytes Abs 1.9 0.9 - 3.2 x10(3)/[facility] Monocyte % 8.0 % [facility] Monocyte Abs 0.4 0.3 - 0.9 x10(3)/[facility] Eos % 1.8 % [facility] Eosinophils Abs 0.1 0.0 - 0.4 x10(3)/[facility] Basophil % 0.7 % [facility] Baso Absolute 0.0 0.0 - 0.1 x10(3)/[facility] Immature Gran % 0.00 % [facility] Comment: Immature granulocytes(IG's)percentage and absolute count will include metamyelocytes, myelocytes, and promyelocytes. Blood smears from CBCs yielding IG's will be scanned manually for concordance. If this scan disagrees with the automated IG or if promyelocytes are noted, a manual differential will be performed. Immature Gran Absolute 0.00 0.00 - 0.04 x10(3)/[facility] Blood 07/24/2022 5:25 AM EDT 07/24/2022 5:57 AM EDT Narrative Resulting Agency Comment Spec In Lab Eddi Vázquez MD HEMATOLOGY ORDERABLE S [facility] [place] [place] [address] * (ABNORMAL) Hemogram (07/24/2022 5:25 AM EDT) White Blood Cell 4.4 4.0 - 9.5 x10(3)/mc L [facility] Red Blood Cell 3.92(L) 4.00 - 5.21 x10(6)/mc L [facility] Hemoglobin 9.6(L) 11.7 - 15.5 g/dL [facility] Hematocrit 31.4(L) 35.7 - 45.8 % [facility] Mean Cell Volume 80.1(L) 82.6 - 94.4 fL [facility] Mean Cell Hemoglobin 24.5(L) 27.1 - 32.0 pg [facility] Mean Cell Hemoglobin Concentration 30.6(L) 31.7 - 35.0 g/dL [facility] Platelet 343 145 - 357 x10(3)/mc L [facility] RDW Standard Deviation 54.7(H) 37.0 - 46.0 fL [facility] RDW coefficient of variation 18.7(H) 11.5 - 14.1 % [facility] Mean Platelet Volume 9.5 7.6 - 12.9 fL [facility] NRBC% auto 0.0 % [facility] NRBC Absolute 0.000 0.000 - 0.000 x10(3)/ L [facility] Blood 07/24/2022 5:25 AM EDT 07/24/2022 5:57 AM EDT Narrative Resulting Agency Comment Spec In Lab Eddi Vázquez MD HEMATOLOGY ORDERABLE S [facility] [place] [place] [address] * (ABNORMAL) Basic Metabolic Panel (non-fasting) (07/24/2022 5:25 AM EDT) Glucose 89 65 - 199 mg/dL [facility] Comment:Diabetes: >=200 mg/d L plus symptoms Blood Urea Nitrogen 11 8 - 18 mg/dL [facility] Creatinine 0.34(L) 0.70 - 1.20 mg/dL [facility] Sodium 138 135 - 145 mmol/L [facility] Potassium 3.9 3.5 - 5.0 mmol/L [facility] Comment: Please note: ??Patients with WBC >100,000 may have falsely elevated Potassium levels. ??For accurate Potassium quantification in these patients send serum separator tube (gold top) for subsequent determinations. ??Contact the Clinical Chemistry Laboratory if there are any questions. Chloride 104 98 - 107 mmol/L [facility] Carbon Dioxide 23 22 - 31 mmol/L [facility] Anion Gap 11 5 - 15 mmol/L [facility] Calcium 9.1 8.5 - 10.5 mg/dL [facility] Est Glomerular Filtration Rate 143 >=60 mL/min/1. 73 m?? [facility] [...] In Lab Eddi Vázquez MD CHEMISTRY ORDERABLES [facility] [place] [address] * Differential, Automated (07/23/2022 3:00 AM EDT) Neutrophil % 50.7 % [facility] Neutrophil Absolute 3.15 1.70 - 6.10 x10(3)/mcL [facility] Lymph % 40.3 % [facility] Lymphocytes Abs 2.5 0.9 - 3.2 x10(3)/[facility] Monocyte % 7.2 % [facility] Monocyte Abs 0.4 0.3 - 0.9 x10(3)/[facility] Eos % 1.1 % [facility] Eosinophils Abs 0.1 0.0 - 0.4 x10(3)/[facility] Basophil % 0.5 % [facility] Baso Absolute 0.0 0.0 - 0.1 x10(3)/[facility] Immature Gran % 0.20 % [facility] Comment: Immature granulocytes(IG's)percentage and absolute count will include metamyelocytes, myelocytes, and promyelocytes. Blood smears from CBCs yielding IG's will be scanned manually for concordance. If this scan disagrees with the automated IG or if promyelocytes are noted, a manual differential will be performed. Immature Gran Absolute 0.01 0.00 - 0.04 x10(3)/[facility] Blood 07/23/2022 3:00 AM EDT 07/23/2022 3:02 AM EDT Narrative Resulting Agency Comment Spec In Lab Eddi Vázquez MD HEMATOLOGY ORDERABLE S Performing Organization Address City/State/[facility] Co de Phone Number [facility] [place] [address] * (ABNORMAL) Hemogram (07/23/2022 3:00 AM EDT) White Blood Cell 6.2 4.0 - 9.5 x10(3)/mc L [facility] Red Blood Cell 4.19 4.00 - 5.21 x10(6)/mc L [facility] Hemoglobin 10.5(L) 11.7 - 15.5 g/dL [facility] Hematocrit 32.7(L) 35.7 - 45.8 % [facility] Mean Cell Volume 78.0(L) 82.6 - 94.4 fL [facility] Mean Cell Hemoglobin 25.1(L) 27.1 - 32.0 pg [facility] Mean Cell Hemoglobin Concentration 32.1 31.7 - 35.0 g/dL [facility] Platelet 364(H) 145 - 357 x10(3)/mc L [facility] RDW Standard Deviation 53.3(H) 37.0 - 46.0 fL [facility] RDW coefficient of variation 18.6(H) 11.5 - 14.1 % [facility] Mean Platelet Volume 9.0 7.6 - 12.9 fL [facility] NRBC% auto 0.0 % [facility] NRBC Absolute 0.000 0.000 - 0.000 x10(3)/mc L [facility] Blood 07/23/2022 3:00 AM EDT 07/23/2022 3:02 AM EDT Narrative Resulting Agency Comment Spec In Lab Eddi Vázquez MD HEMATOLOGY ORDERABLE S [facility] [place] [place] [address] * (ABNORMAL) Basic Metabolic Panel (non-fasting) (07/23/2022 3:00 AM EDT) Glucose 101 65 - 199 mg/dL [facility] Comment:Diabetes: >=200 mg/d L plus symptoms Blood Urea Nitrogen 9 8 - 18 mg/dL [facility] Creatinine 0.31(L) 0.70 - 1.20 mg/dL [facility] Sodium 141 135 - 145 mmol/L [facility] Potassium 3.6 3.5 - 5.0 mmol/L [facility] Comment: Please note: ??Patients with WBC >100,000 may have falsely elevated Potassium levels. ??For accurate Potassium quantification in these patients send serum separator tube (gold top) for subsequent determinations. ??Contact the Clinical Chemistry Laboratory if there are any questions. Chloride 105 98 - 107 mmol/L [facility] Carbon Dioxide 23 22 - 31 mmol/L [facility] Anion Gap 13 5 - 15 mmol/L [facility] Calcium 8.9 8.5 - 10.5 mg/dL [facility] Est Glomerular Filtration Rate 146 >=60 mL/min/1. 73 m?? [facility] Comment: This patient's estimated [...] Vázquez MD CHEMISTRY ORDERABLES Performing Organization Address [facility] Co de Phone Number [facility] [place] [address] * Blood culture (07/22/2022 10:47 PM EDT) Blood Culture No growth at 5 days. [facility] Blood VENOUS CATHETER / Unknown 07/22/2022 10:47 PM EDT 07/22/2022 10:48 PM EDT Comment:add-on Narrative Resulting Agency Comment Spec In Lab Samuel Comer MD MICROBIOLOGY - BLOOD ORDERABLES Performing Organization Address [facility] Co de Phone Number [facility] [place] [address] * Anaerobic Culture (07/22/2022 9:30 PM EDT) Anaerobic Culture No anaerobic organisms isolated [facility] Fluid 07/22/2022 9:30 PM EDT 07/22/2022 9:45 PM EDT Narrative Resulting Agency Comment Spec In Lab Samuel Comer MD MICROBIOLOGY - GENER AL ORDERABLES Performing Organization Address [facility] Co de Phone Number [facility] [place] [address] * Body Fluid Culture, Aerobic (07/22/2022 9:30 PM EDT) Body Fluid Culture No growth to date. [facility] Gram Stain Many Neutrophils seen No microorganisms seen. [facility] Fluid 07/22/2022 9:30 PM EDT 07/22/2022 9:45 PM EDT Narrative Resulting Agency Comment Spec In Lab Samuel Comer MD MICROBIOLOGY - GENER AL ORDERABLES Performing Organization Address [facility] Co de Phone Number [facility] [place] [address] * Cell Count Body Fluid Other (07/22/2022 9:30 PM EDT) Body Fluid Source Other [facility] Color, Fld Red [facility] Appearance, Fld Clotted [facility] WBC Count, Fld Clotted [facility] Comment: Called by: CHARLEY, Read back by: Yarelis Galdamez, Date/Time:07/22/22 21:56. All body fluid results should always be interpreted in light of the total clinical presentation of the patient, including clinical history, data from additional tests and other appropriate information. Polymorphonuclear cells BF % Clotted % [facility] Comment: Polymorphonuclear cell percent and absolute values may contain Neutrophils, Eosinophils, and Basophils. Body fluid smear will be scanned manually for concordance. Mononuclear cells BF % Clotted % [facility] Comment: Mononuclear cell percent and absolute values may contain Lymphocytes and Monocytes. Body fluid smear will be scanned manually for concordance. Polymorphonuclear cells BF ABS Clotted /[facility] Comment: Polymorphonuclear cell percent and absolute values may contain Neutrophils, Eosinophils, and Basophils. Body fluid smear will be scanned manually for concordance. Mononuclear cells BF ABS Clotted /[facility] Comment: Mononuclear cell percent and absolute values may contain Lymphocytes and Monocytes. Body fluid smear will be scanned manually for concordance. Other 07/22/2022 9:30 PM EDT 07/22/2022 9:38 PM EDT Narrative Resulting Agency Comment Spec In Lab Alek Tavares MD BODY FLUIDS AND STOO LS ORDERABLES Performing Organization Address City/[facility]/ZIP Co de Phone Number [facility] [place] [address] * Blood culture (07/22/2022 9:15 PM EDT) Blood Culture No growth at 5 days. [facility] Blood 07/22/2022 9:15 PM EDT 07/22/2022 9:29 PM EDT Comment:L AC Narrative Resulting Agency Comment Spec In Lab Alek Tavares MD MICROBIOLOGY - BLOOD ORDERABLES [facility] [place] [address] * CT Lumbar Spine w Contrast (07/22/2022 [...] first. ? Electronically signed by: Jamaal Villafuerte [facility] ([phone]), at 07/22/2022 8:03 PM Narrative 07/22/2022 8:03 [...] imaging first. Electronically signed by: Jamaal Villafuerte [facility]([phone]), at 07/22/2022 8:03 PM Marie Telles MD IMG CT ORDERABLES * Differential, Automated (07/22/2022 7:12 PM EDT) Neutrophil % 53.7 % [facility] Neutrophil Absolute 3.01 1.70 - 6.10 x10(3)/[facility] Lymph % 37.4 % [facility] Lymphocytes Abs 2.1 0.9 - 3.2 x10(3)/[facility] Monocyte % 6.2 % [facility] Monocyte Abs 0.4 0.3 - 0.9 x10(3)/[facility] Eos % 1.4 % [facility] Eosinophils Abs 0.1 0.0 - 0.4 x10(3)/[facility] Basophil % 1.1 % [facility] Baso Absolute 0.1 0.0 - 0.1 x10(3)/[facility] Immature Gran % 0.20 % [facility] Comment: Immature granulocytes(IG's)percentage and absolute count will include metamyelocytes, myelocytes, and promyelocytes. Blood smears from CBCs yielding IG's will be scanned manually for concordance. If this scan disagrees with the automated IG or if promyelocytes are noted, a manual differential will be performed. Immature Gran Absolute 0.01 0.00 - 0.04 x10(3)/mcL [facility] Blood 07/22/2022 7:12 PM EDT 07/22/2022 7:21 PM EDT Narrative Resulting Agency Comment Spec In Lab Phyllis SIMMS HEMATOLOGY ORDERABLE S [facility] [place] [place] [address] * (ABNORMAL) Hemogram (07/22/2022 7:12 PM EDT) White Blood Cell 5.6 4.0 - 9.5 x10(3)/mc L [facility] Red Blood Cell 4.58 4.00 - 5.21 x10(6)/mc L [facility] Hemoglobin 11.2(L) 11.7 - 15.5 g/dL [facility] Hematocrit 36.2 35.7 - 45.8 % [facility] Mean Cell Volume 79.0(L) 82.6 - 94.4 fL [facility] Mean Cell Hemoglobin 24.5(L) 27.1 - 32.0 pg [facility] Mean Cell Hemoglobin Concentration 30.9(L) 31.7 - 35.0 g/dL [facility] Platelet 449(H) 145 - 357 x10(3)/mc L [facility] RDW Standard Deviation 52.9(H) 37.0 - 46.0 fL [facility] RDW coefficient of variation 18.3(H) 11.5 - 14.1 % [facility] Mean Platelet Volume 9.2 7.6 - 12.9 fL [facility] NRBC% auto 0.0 % [facility] NRBC Absolute 0.000 0.000 - 0.000 x10(3)/mc L [facility] Blood 07/22/2022 7:12 PM EDT 07/22/2022 7:21 PM EDT Narrative Resulting Agency Comment Spec In Lab Phyllis SIMMS HEMATOLOGY ORDERABLE S [facility] [place] [place] [address] * (ABNORMAL) CRP, acute inflammation (07/22/2022 7:12 PM EDT) C-Reactive Protein 48.9(H) <=4.9 mg/L [facility] Blood 07/22/2022 7:12 PM EDT 07/22/2022 7:21 PM EDT Narrative Resulting Agency Comment Spec In Lab Amarilis Carcamo DO CHEMISTRY O RDERABLES [facility] [place] [address] * (ABNORMAL) Sedimentation rate (07/22/2022 7:12 PM EDT) Sedimentation Rate Automated >119(H) 2 - 37 mm/hr [facility] Comment: Effective April 06, 2019 new capillary photometric technology has resulted in a change in reference ranges. It is recommended that each ESR result be reviewed with its own age appropriate reference range. Blood 07/22/2022 7:12 PM EDT 07/22/2022 7:21 PM EDT Narrative Resulting Agency Comment Spec In Lab Amarilis Carcamo DO HEMATOLOGY ORDERABLES Performing Organization Address City/[facility]/ZIP Co de Phone Number [facility] [place] [address] * (ABNORMAL) Basic Metabolic Panel (non-fasting) (07/22/2022 7:12 PM EDT) Glucose 99 65 - 199 mg/dL [facility] Comment:Diabetes: >=200 mg/d L plus symptoms Blood Urea Nitrogen 10 8 - 18 mg/dL [facility] Creatinine 0.34(L) 0.70 - 1.20 mg/dL [facility] Sodium 139 135 - 145 mmol/L [facility] Potassium 3.8 3.5 - 5.0 mmol/L [facility] Comment: Please note: ??Patients with WBC >100,000 may have falsely elevated Potassium levels. ??For accurate Potassium quantification in these patients send serum separator tube (gold top) for subsequent determinations. ??Contact the Clinical Chemistry Laboratory if there are any questions. Chloride 103 98 - 107 mmol/L [facility] Carbon Dioxide 26 22 - 31 mmol/L [facility] Anion Gap 10 5 - 15 mmol/L [facility] Calcium 9.4 8.5 - 10.5 mg/dL [facility] Est Glomerular Filtration Rate 143 >=60 mL/min/1. 73 m?? [facility] [...] In Lab Marie Telles MD CHEMISTRY ORDERABLES [facility] [place] [place] [address] documented in this encounter Visit Diagnoses Diagnosis [...] documented as of this encounter Care Teams Dietitian Relationship Specialty Start Date End Date Lorna Bal APRN [address] [place] [address] PCP - General Family Medicine 05/27/18 documented as of this encounter
--- OUTSIDE RECORDS SUMMARY | 2024-01-05 18:25 | XMS_ITS | Encounter Summary ---
Author Organization [facility] Address [facility] [place] [address] Care Team Providers Care Assembler Insulator Name Role Phone Lorna Bal APRN Primary Care Provider +1 [phone] Reason for Visit * Auth/Cert Specialty Diagnoses [...] Expiration Date Visits Re quested Visits Authorized [id number] 1 1 Encounter Details Date Type Department Care Team (Late st Contact Info) Description 06/14/2018 8:34 AM EST - 06/14/2018 12:20 PM EST Hospital Encounter Outpatient [place] [id number] Keith Cotton MD [facility] ORAL [place] [address] Discharge Disposition: Home Social History Tobacco Use [...] closest emergency room or call the hospital felting machine operator helper at [phone] and ask for physician inventory control clerk covering for your physician. Questions or problems after 5pm or on a weekend: Call the [facility] felting machine operator helper at and ask for the physician inventory control clerk covering for your doctor. * Patient Instructions* [...] may be helpful. Most swelling will occur [id number] hours following the procedure. Mouth Rinse: Vigorous [...] can be reached during office hours at [phone]. If you have questions atnight or on weekends, Dr. Cotton can be reached at [phone]. documented in this encounter Medications at Time [...] OLIVER at [facility] OR ? ? PRO I&D, POST SPINE, LUMB/SACR/LUMBOSAC N/A 05/20/2014 @I & D, OPEN, DEEP ABSCESS, LUMBAR, SACRAL, LUMBOSACRAL performed by Freddy Isbell MD at [facility] OR ? ? PRO I&D, POST SPINE, LUMB/SACR/LUMBOSAC N/A 05/26/2014 @I & D, OPEN, DEEP ABSCESS, LUMBAR, SACRAL, LUMBOSACRAL performed by Freddy Isbell MD at [facility] OR ??? PRO OSTEOTOMY FEMUR SHAFT/SUPRACONDY 08/15/2010 ??OSTEOTOMY, FEMUR SHAFT OR SUPRACONDYLAR W/O FIXATION performed by BARRERA OLIVER at [facility] OR ??? PRO RECONSTRUC HIP SOCKET, RESEC FEM HEAD 08/15/2010 ??ACETABULOPLASTY (GIRDLESTONE), RESECTION FEMORAL HEAD, BILATERAL performed by BARRERA OLIVER [facility] OR ??? PRO REMOVAL DEEP IMPLANT 08/15/2010 REMOVAL IMPLANT, DEEP, BRUNO performed by BARRERA OLIVER at [facility] OR ??? PRO REMOVE INFUSN [...] MD at [facility] OR Allergies Allergen Reactions ??? Fluoxetine Other (See Comments) HIVES, HEART RACES ??? Tegaderm [Transparent Dressings] Itching and Dermatitis Please use [id number] No current facility-administered medications on file prior [...] TOOTH (WRVU 1.09) No flowsheet data found. [place] PDMP QUERY DATE: 06/14/18 Risk Assessment Category: [...] No future appointments. Keith Cotton DMD, MD sanitation tank washer documented in this encounter Miscellaneous Notes * Op Note - Keith Cotton MD - 06/14/2018 11:06 AM EST [facility] [place] Operative Note Patient Name: Tana Cavazos : [id number] MR#: [id number] Case Date: 06/14/2018 Surgeon: Surgeon(s) and Role: [...] and draped in the standard fashion for chef's assistant. The oral cavity was suctioned and [...] tooth #32. Mucoperiosteum was reflected laterally andthe PandaDoc drill was used to remove bone overlying [...] PM EST Office [place] [address] Hollie Ambriz MD [facility] [place] [address] documented as of this encounter Procedures Procedure [...] Routine documented in this encounter Care Teams Assembler Insulator Relationship Specialty Start Date End Date Lorna Bal APRN [address] [place] [address] PCP - General Family Medicine 05/27/18 documented as of this encounter
--- OUTSIDE RECORDS SUMMARY | 2024-01-05 18:25 | XMS_ITS | Encounter Summary ---
[place] [address] Care Team Providers Care Administrative Fellow Name Role Phone Lorna Bal APRN Primary Care Provider +1 [phone] Encounter Details Date Type Department Care Team [...] PM EST Office Visit [place] [phone] Hollie Ambriz MD [facility] DR INFECTIOUS [place] [address] documented as of this encounter Visit Diagnoses Not on filedocumented in this encounter Additional Health Concerns Infection Onset Date Last Indicated Resolved Time Parainfluenza Virus 06/28/2022 06/28/2022 07/10/19 23 8:09 PM EDT documented as of this encounter Care Teams Administrative Fellow Relationship Specialty Start Date End Date Lorna Bal APRN [address] [place] [address] PCP - General Family Medicine 05/27/18 documented as of this encounter
--- OUTSIDE RECORDS SUMMARY | 2024-01-05 18:25 | XMS_ITS | Encounter Summary ---
Author Organization [facility] Address [facility] [place] [address] Care Team Providers Care Quebracho Tanner Name Role Phone Lorna Bal APRN Primary Care Provider +1 -[phone] Encounter Details Date Type Department Care Team (Late st Contact Info) Description 07/08/2022 Orders [place] [address] Jamaal Estrada MD [facility] [place] [address] Spinal abscess; Bacteremia; E coli infection; Soft tissue abscess; Muscle abscess Social History Tobacco Use Types Packs/Day Years Used Date Smoking Tobacco: Never Smokeless Tobacco: Never Comments:NO SMOKERS IN THE H OME Alcohol Use Standard Drinks/Week Comments No 0 (1 standard drink = 0.6 oz pur e alcohol) [facility] Inpatient Questions Answer Date [...] PM EST Office [place] [address] Hollie Ambriz MD [facility] [place] [address] documented as of this encounter Visit Diagnoses [...] documented as of this encounter Care Teams Quebracho Tanner Relationship Specialty Start Date End Date Lorna Bal, [place] [address] [place] [address] PCP - General Family Medicine 05/27/18 documented as of this encounter
--- OUTSIDE RECORDS SUMMARY | 2024-01-05 18:25 | XMS_ITS | Encounter Summary ---
Author Organization [facility] Address [facility] [place] [address] Care Team Providers Care Aquatic Physiotherapist Name Role Phone Lorna Bal APRN Primary Care Provider +1 [phone] Reason for Visit * Reason Comments Follow-up * Consultation (Routine) - Specialty Diagnoses / Procedures Referred By Karlo duarte Referred To Contact Dermatology Diagnoses Disorder of the skin and subcutaneous tissue, unspecified Lorna Bal APRN [address] [place] [address] [facility] Dermatology [address] [place] [address] Referral ID Status Reason Start Date Expiration Date V isits Requested Visits Authorized [id number] Consult, Test & Treat Connection Center PCP Updated and/or Approved 10/10/2019 10/09/2020 12 12 Encounter Details Date Type Department Care Team (Late st Contact Info) Description 10/31/2019 10:40 AM EDT Office Visit Dermatology at [facility] [address] [place] [address] Deanna Norton MD [facility] DR G[address] [place] [address] Intertrigo Social History Tobacco Use [...] Established pt here with her resident care aide Nely. She has a creaseon the left [...] [Transparent Dressings] Itching and Dermatitis Please use [id number] CURRENT MEDICATIONS: Current Outpatient Medications Medication Sig [...] documentation. Deanna Norton MD Section of Dermatology [facility] documented in this encounter Plan of Treatment Upcoming Encounters Date Type Department Care Team (Late st Contact Info) Description 06/02/2024 12:30 PM EST Office Visit Infectious [place] [address] Hollie Ambriz MD [facility] [place] [address] documented as of this encounter Visit Diagnoses Diagnosis Intertrigo Other specified erythematous condition documented in this encounter Care Teams Aquatic Physiotherapist Relationship Specialty Start Date End Date Lorna Bal APRN [address] [place] [address] PCP - General Family Medicine 05/27/18 documented as of this encounter
--- OUTSIDE RECORDS SUMMARY | 2024-01-05 18:25 | XMS_ITS | Encounter Summary ---
Author Organization [facility] Address [facility] [place] [address] Care Team Providers Care Aircraft Instrument Engineer Name Role Phone Lorna Bal APRN Primary Care Provider +1 [phone] Reason for Visit * Auth/Cert Specialty Diagnoses [...] Expiration Date Visits Re quested Visits Authorized [id number] 1 1 Encounter Details Date Type Department Care Team (Late st Contact Info) Description 06/14/2018 9:45 AM EST - 06/14/2018 11:30 AM EST Surgery Outpatient [place] [address] [facility] ORAL AND [place] [address] SURGICAL EXTRACTIONS, REMOVAL OF IMPACTED TOOTH, COMPLETELY [...] closest emergency room or call the hospital valve machine operator at [phone] and ask for physician phototypesetting equipment monitor covering for your physician. Questions or problems after 5pm or on a weekend: Call the [facility] valve machine operator at and ask for the physician phototypesetting equipment monitor covering for your doctor. * Patient Instructions* [...] may be helpful. Most swelling will occur [id number] hours following the procedure. Mouth Rinse: Vigorous [...] can be reached during office hours at [phone]. If you have questions atnight or on weekends, Dr. Cotton can be reached at [phone]. documented in this encounter Medications at Time [...] BOTH LEGS performed by BARRERA OLIVER at [facility] OR ? ? PRO I&D, POST SPINE, LUMB/SACR/LUMBOSAC N/A 05/20/2014 @I & D, OPEN, DEEP ABSCESS, LUMBAR, SACRAL, LUMBOSACRAL performed by Freddy Isbell MD at [facility] OR ? ? PRO I&D, POST SPINE, LUMB/SACR/LUMBOSAC N/A 05/26/2014 @I & D, OPEN, DEEP ABSCESS, LUMBAR, SACRAL, LUMBOSACRAL performed by Freddy Isbell MD at [facility] OR ??? PRO OSTEOTOMY FEMUR SHAFT/SUPRACONDY 08/15/2010 ??OSTEOTOMY, FEMUR SHAFT OR SUPRACONDYLAR W/O FIXATION performed by BARRERA OLIVER at [facility] OR ??? PRO RECONSTRUC HIP SOCKET, RESEC FEM HEAD 08/15/2010 ??ACETABULOPLASTY (GIRDLESTONE), RESECTION FEMORAL HEAD, BILATERAL performed by BARRERA OLIVER [facility] OR ??? PRO REMOVAL DEEP IMPLANT 08/15/2010 REMOVAL IMPLANT, DEEP, BRUNO performed by BARRERA OLIVER at [facility] OR ??? PRO REMOVE INFUSN DEVICE/PUMP N/A 05/11/2014 REMOVAL OF SPINE INFUSION PUMP performed by Jamaal Samuel MD at [facility] OR ??? PRO REMOVE SPINAL CANAL CATHETER N/A 05/11/2014 REMOVAL OF INTRATHECAL OR EPIDURAL CATHETER performed by Jamaal Samuel MD at [facility] OR ??? PRO REPR, DURAL/CSF LEAK, NOT REQ LAMINECTOMY N/A 05/20/2014 @REPAIR DURAL\CSF LEAK,NOT REQUIRING LAMINECTOMY performed by Freddy Isbell MD at [facility] OR Allergies Allergen Reactions ??? Fluoxetine Other (See Comments) HIVES, HEART RACES ??? Tegaderm [Transparent Dressings] Itching and Dermatitis Please use [id number] No current facility-administered medications on file prior [...] TOOTH (WRVU 1.09) No flowsheet data found. [place] PD[place] QUERY DATE: 06/14/18 Risk Assessment Category: [...] No future appointments. Keith Cotton DMD, MD carpet cleaner documented in this encounter Miscellaneous Notes * Op Note - Keith Cotton MD - 06/14/2018 11:06 AM EST [facility] Operative Note Patient Name: Tana Cavazos : [id number] MR#: [id number] Case Date: 06/14/2018 Surgeon: Surgeon(s) and Role: [...] draped in the standard fashion for behavioral interventionist. The oral cavity was suctioned and an [...] tooth #32. Mucoperiosteum was reflected laterally andthe [employer] drill was used to remove bone overlying [...] PM EST Office Visit Infectious Disease at [facility] [place] [address] [facility] [place] [address] documented as of this encounter Procedures Procedure [...] Routine documented in this encounter Care Teams Aircraft Instrument Engineer Relationship Specialty Start Date End Date Lorna Bal APRN [address] [place] [address] PCP - General Family Medicine 05/27/18 documented as of this encounter
--- OUTSIDE RECORDS SUMMARY | 2024-01-05 18:25 | XMS_ITS | Encounter Summary ---
Author Organization [facility] [place] [address] Care Team Providers Care Plater Supervisor Name Role Phone Lorna Bal APRN Primary Care Provider +1 -[phone] Encounter Details Date Type Department Care Team (Late st Contact Info) Description 06/19/2022 4:45 PM EST Ancillary Procedure [place] [address] Joe Harrison MD [facility] [address] Social History Tobacco Use Types Packs/Day Years [...] Office [place] [address] Hollie Ambriz MD [facility] [place] [address] documented as of this encounter Procedures Procedure Name Priority Date/Time Associated Diagnosis Comments FILM LIBRARY STORAGE ONLY ULTRASOUND STUDY Routine 06/19/2022 4:40 PM EST documented in this encounter Results * Film Library- Storage Only Ultrasound Study (06/19/2022 4:40 PM EST) Narrative [facility] - 06/19/2022 4:40 PM EST This exam is auto-finalizing. It's purpose is for storage only. Joe Harrison MD G FILM LIBRARY ORD ERABLES [place], [place] documented in this encounter Visit Diagnoses Not on filedocumented in this encounter Care Teams Plater Supervisor Relationship Specialty Start Date End Date Lorna Bal APRN [address] [place] [address] PCP - General Family Medicine 05/27/18 documented as of this encounter
--- OUTSIDE RECORDS SUMMARY | 2024-01-05 18:25 | XMS_ITS | Encounter Summary ---
Author Organization [facility] Address [facility] [place] [address] Care Team Providers Care Booth Cashier Name Role Phone Lorna Bal APRN Primary Care Provider +1 -[phone] Reason for Visit * Auth/Cert Specialty Diagnoses [...] Expiration Date Visits Re quested Visits Authorized [id number] 1 1 Encounter Details Date Type Department Care Team (Late st Contact Info) Description 06/14/2018 9:12 AM EST Anesthesia Event [place]patient [place] [address] Ty Amin MD [facility] [place] [address] Andrade Baldwin MD [facility] [place] [address] Anesthesia Record Procedure Summary Procedure Name Responsible [...] 06/14/18; 0917; other (see comments) (right saphenous); ngmh-edx-mgejgf catheter system; 22 gauge; Dr. Amin; 1; no longer indicated, removed per policy/procedure, catheter/device intact; 06/14/18; 1218 06/14/18 0917 by Laxmi Fowler, BRAINER 06/14/18 1218 by Jessica Silva, EUNICE ETT Mask Ventilation: Ea sy (1); ETT Type: Cuffed, Nasal, KRISH; ETT Size: 7 mm; Mac Blade: 3; Notes: Asleep, Pre-O2; Attempts: 1; Laryngoscopy Grade: 1; ETT Placement Verified By: Auscultation, Capnometry, Visual; Secured at Teeth: 21 cm; Inserted by: Dr. Amin; Removal Date: 06/14/18; Removal Time: 1106 06/14/18 0924 by Laxmi Fowler, BRAINER 06/14/18 1106 by Laxmi Fowler, BRAINER Incision 06/14/18; 0937; gum; 12/23/21 (LDA cleanup utility RA#[id number]); 1715 (LDA cleanup utility RA#[id number]) 06/14/18 0937 by Zulay Mcknight RN 12/23/21 1715 by Philipep Bonner documented in this encounter Social History [...] Amin MD - 06/14/2018 11:39 AM EST [facility] Department of Anesthesiology Post-procedure Note Patient: Tana Cavazos Procedure Summary Date: 06/14/18 Room / Location: [facility] [place] [address] [place] [address] Anesthesia Start: 911 Anesthesia Stop: 1117 Procedures: [...] All Anesthesia Providers: Anesthesiologist: Ty Amin MD BRAINER: Laxmi Fowler CRNA Vitals Value Taken Time BP 128/58 06/14/2018 12:00 PM Temp 36.1 ??C (97 ??F) 06/14/2018 11:15 AM Pulse 95 06/14/2018 11:30 AM Resp 20 06/14/2018 12:00 PM SpO2 97 % 06/14/2018 12:00 PM Pain Level 1 06/14/2018 12:00 PM Patient Location: PACU/[facility] Level of Consciousness: Awake and Alert [...] FEMORAL HEAD, BILATERAL performed by BARRERA OLIVER [facility] OR ??? PRO REMOVAL DEEP [...] [Transparent Dressings] Itching and Dermatitis Please use [id number] Medications: MAR and/or home medications have been [...] PM EST Office [place] [address] Hollie Ambriz MD [facility] [place] [address] documented as of this encounter Visit Diagnoses [...] EST documented in this encounter Care Teams Booth Cashier Relationship Specialty Start Date End Date Lorna Bal APRN [address] [place] [address] PCP - General Family Medicine 05/27/18 documented as of this encounter
--- OUTSIDE RECORDS SUMMARY | 2024-01-05 18:25 | XMS_ITS | Encounter Summary ---
Author Organization [facility] Address [facility] [place] [address] Care Team Providers Care Campground Cleaning Attendant Name Role Phone Lorna Bal APRN Primary Care Provider +1 [phone] Encounter Details Date Type Department Care Team (Latest Contact Info) Description 03/18/2019 1:45 PM EST - 03/18/2019 11:59 PM EST Hospital Encounter XRay at [address] [place] [address] Josse Mckee MD [facility] [place] [address] Acquired dysplasia of hip, unspecified laterality Discharge [...] EST Office Visit [place] [address] Hollie Ambriz MD [facility] [place] [address] documented as of this encounter Procedures Procedure [...] below. ? Electronically signed by: Zander Sherwood [facility] ([phone]), at 03/18/2019 4:22 PM Narrative 03/18/2019 4:22 [...] number below. Electronically signed by: Zander Sherwood [facility]([phone]), at 03/18/2019 4:22 PM Josse Mckee MD IMG DX ORDERABLES documented in this encounter Visit Diagnoses Diagnosis Acquired dysplasia of hip, unspecified laterality documented in this encounter Care Teams Campground Cleaning Attendant Relationship Specialty Start Date End Date Lorna Bal APRN [address] [place] [address] PCP - General Family Medicine 05/27/18 documented as of this encounter
--- OUTSIDE RECORDS SUMMARY | 2024-01-05 18:25 | XMS_ITS | Encounter Summary ---
Author Organization [facility] Address [facility] [place] [address] Care Team Providers Care Army Manager Name Role Phone Emelyn Easley MD Primary Care Provider [phone] Reason for Visit * Reason Comments Rash * Consultation (Routine) - Closed Specialty Diagnoses / Procedures Referred By Karlo duarte Referred To Contact Dermatology Diagnoses RASH TO UPPER EXTREMITIES EXTENDS TO RIGHT SIDE. Lorna Bal APRN [address] [place] [address] [facility] [address] [place] [address] Referral ID Status Reason Start Date Expiration Date V isits Requested Visits Authorized [id number] Closed Consult, Test & Treat Connection Center 09/15/2017 09/15/2018 1 1 Encounter Details Date Type Department Care Team (Late st Contact Info) Description 11/16/2017 9:00 AM EDT Office Visit Dermatology at [facility] [address] [place] [address] Emili Mcdonald MD [facility] [address] [place] [address] Keratosis pilaris (Primary Dx); Multiple [...] [Transparent Dressings] Itching and Dermatitis Please use [id number] Review of Systems: - General: Feels well. [...] by Emili Mcdonald MD Resident in Dermatology [facility] Patient seen in conjunction with staff dumpster driver: Wally Araya MD Section of Dermatology [facility] Level of Resident Supervision: Direct Supervision [...] PM EST Office Visit [place] [address] Hollie Ambriz MD [facility] [place] [address] documented as of this encounter Visit Diagnoses Diagnosis Keratosis pilaris- Primary Other specified congenital anomaly of skin Multiple benign nevi Benign neoplasm of skin, site unspecified documented in this encounter Care Teams Army Manager Relationship Specialty Start Date End Date Emelyn Easley MD [address] [place] [address] PCP - General Family Medicine 08/26/16 05/26/18 documented as of this encounter
--- OUTSIDE RECORDS SUMMARY | 2024-01-05 18:25 | XMS_ITS | Encounter Summary ---
Author Organization [facility] [place] [address] Care Team Providers Care Operator Automated Process Name Role Phone Lorna Bal APRN Primary Care Provider [phone] [phone] Encounter Details Date Type Department Care Team (Late st Contact Info) Description 06/17/2022 Ancillary Procedure [place] [address] Joe Harrison MD [facility] [place] [address] Social History Tobacco Use Types Packs/Day Years [...] PM EST Office [place] [address] Hollie Ambriz MD [facility] [place] [address] documented as of this encounter Procedures Procedure Name Priority Date/Time Associated Diagnosis Comments FILM LIBRARY STORAGE ONLY DX SPINE Routine 06/17/2022 12:00 AM EST documented in this encounter Results * Film Library- Storage Only DX Spine (06/17/2022 12:00 AM EST) Narrative [facility] - 06/19/2022 4:36 PM EST This exam is auto-finalizing. It's purpose is for storage only. Joe Harrison MD IMG FILM LIBRARY ORD ERABLES [place], [place] documented in this encounter Visit Diagnoses Not on filedocumented in this encounter Care Teams Operator Automated Process Relationship Specialty Start Date End Date Lorna Bal APRN [address] [place] [address] PCP - General Family Medicine 05/27/18 documented as of this encounter
--- OUTSIDE RECORDS SUMMARY | 2024-01-05 18:25 | XMS_ITS | Encounter Summary ---
[place] [address] Care Team Providers Care Project Director Name Role Phone Lorna Bal APRN Primary Care Provider [phone] Encounter Details Date Type Department Care Team (Late st Contact Info) Description 06/19/2022 Telephone [place] [id number] Gurdeep Simmons MD [facility] [place] [address] Social History Tobacco Use Types Packs/Day Years [...] a call from Kelly Landa APRN at [facility] regarding Tana Cavazos through the transfer [...] was brought to the ED today byher outcomes specialist as there was some concern for having perceived pain her back (patient is non-verbal).Per report, examination by providers at [facility] do not demonstrate evidence of [...] The patient was evaluated by orthopaedics at [facility] (Dr. Weiss) who did not [...] were answered. Gurdeep Simmons MD Orthopaedic Surgery [id number] documented in this encounter Plan of Treatment Upcoming Encounters Date Type Department Care Team (Late st Contact Info) Description 06/02/2024 12:30 PM EST Office Visit [place] [address] [facility] [place] [address] documented as of this encounter Visit Diagnoses Not on filedocumented in this encounter Care Teams Project Director Relationship Specialty Start Date End Date Lorna Bal APRN [address] [place] [address] PCP - General Family Medicine 05/27/18 documented as of this encounter
--- OUTSIDE RECORDS SUMMARY | 2024-01-05 18:25 | XMS_ITS | Encounter Summary ---
Author Organization Formerly [facility] Address [facility] [place] [address] Care Team Providers Care Case Fitter Name Role Phone Lorna Bal APRN Primary Care Provider [phone] Reason for Visit * Consultation (Routine) - Closed Specialty Diagnoses / Procedures Referred By Contact Referred To Contact Maxillofacial Surgery Diagnoses wisdom teeth extraction no images Yas Conner, [place] [address] Keith Cotton MD [facility] ORAL AND [place] [address] Referral ID Status Reason Start Date Expiration Date Visits Re quested Visits Authorized [id number] Closed 03/20/2018 03/20/2019 1 1 Encounter Details Date Type Department Care Team (Late st Contact Info) Description 05/27/2018 11:00 AM EST Office [place] [address] Keith Cotton MD [facility] ORAL [place] [address] Impacted teeth Social History Tobacco Use Types [...] who is referred to us by at [facility] for consultation regarding wisdom teeth [...] [Transparent Dressings] Itching and Dermatitis Please use [id number] ROS with attention to cardiac, pulmonary, hepatic, [...] PM EST Office [place] [address] Hollie Ambriz MD [facility] [place] [address] documented as of this encounter Visit Diagnoses Diagnosis Impacted teeth documented in this encounter Care Teams Case Fitter Relationship Specialty Start Date End Date Lorna Bal APRN [address] [place] [address] PCP - General Family Medicine 05/27/18 documented as of this encounter
--- OUTSIDE RECORDS SUMMARY | 2024-01-05 18:25 | XMS_ITS | Encounter Summary ---
Author Organization [facility] [place] [address] Care Team Providers Care Public Defender Name Role Phone Lorna Bal APRN Primary Care Provider [phone] Encounter Details Date Type Department Care Team [...] PM EST Office [place] [address] Hollie Ambriz MD [facility] [place] [address] documented as of this encounter Visit Diagnoses Not on filedocumented in this encounter Care Teams Public Defender Relationship Specialty Start Date End Date Lorna Bal APRN [address] [place] [address] PCP - General Family Medicine 05/27/18 documented as of this encounter
--- OUTSIDE RECORDS SUMMARY | 2024-01-05 18:25 | XMS_ITS | Encounter Summary ---
Author Organization [facility] [place] [address] Care Team Providers Care Handbag Operator Name Role Phone Lorna Bal APRN Primary Care Provider [phone] Reason for Referral * Home Health Care (Routine) - Closed Specialty Diagnoses / Procedures Referred By Contac t Referred To Contact Diagnoses [place] [address] [facility] & [address] [address] Referral ID Status Reason Start Date Expiration Date V isits Requested Visits Authorized [id number] Closed Consult, Test & Treat 07/09/2022 01/05/2023 999 999 Reason for Visit * Reason Comments Surgical Post Op * Auth/Cert (Routine) Specialty Diagnoses / Procedures Referred By Contac t Referred To Contact Diagnoses Spinal abscess Procedures EMERGENCY GABI Eddi Vázquez [place] [address] [facility] Referral ID Status Reason Start Date Expiration Date Visits Re quested Visits Authorized [id number] 1 1 Encounter Details Date Type Department Care Team (Latest Contact Info) Description 06/24/2022 2:05 PM EST - 07/09/2022 10:29 AM EDT Hospital Encounter Medical Specialites Unit Level 1 [place] [id number] Eddi Váz[place] [address] [place] [address] [place] [address] Ian Duarte MD Swenson, Rebecca [place], [place] [address] Spinal abscess; Tachycardia; Bacteremia Discharge Disposition: Home [...] Tana Shelton Patient Age: 27 y.o. Language: Icelandic Race: White Ethnicity: Not nor Admit date: [...] please contact your inpatient physician through the [facility] Cardiac Cath Lab Radiology Technologist . Issues afterhours and on weekends will [...] however on 06/17 she was brought to [facility] by her senior merchandiser for possibly increased back pain and received [...] who have questions please contact the health dog daycare provider that requested your imaging first. All Drainage [...] more inferior paraspinal fluid collection. Operators: Mich aMrtino MD, Attending Estimated Blood Loss: Less than 25 cc. Fluoroscopy time: Please see [facility] IR technologist record for procedural dose/time. Cefazolin/ [...] The tract was dilated, and an 8 Belgian drain was advanced over the wire into [...] aspiration demonstrated shiraz pus, and an 8 Belgian drain was placed using ultrasound guidance as [...] maximal sterile barrier technique was used throughout. Breakfast Server fluoroscopic images were obtained. Contrast was injected [...] who have questions please contact the health dog daycare provider that requested your imaging first. Lumbar Spine [...] who have questions please contact the health dog daycare provider that requested your imaging first. All Drainage Procedures (Exam End: 07/04/2022 4:14 PM) Narrative Preoperative Diagnosis: re accumulated Lumbar collection by CT, Fevers Postoperative Diagnosis: Same Procedure Performed: Ultrasound and fluoroscopically guided drain placement. Operators: Mich Martino MD, Attending Estimated Blood Loss: Negligible. Fluoroscopy dose: Please see [facility] IR technologist record for procedural dose/time. Cefazolin/ [...] dilated over the wire and a 8.5 Belgian drain was advanced over the wire into [...] who have questions please contact the health dog daycare provider that requested your imaging first. Electronically signed by: Nathalie Whitaker MD, [facility] ([phone]), at 07/05/2022 5:38 PM IR Site Check In Recovery Room (Exam End: 07/08/2022 10:29 AM) Narrative This exam is auto-finalizing. No interpretation was done. Pending Studies and Lab Data: None Discharge Conditions/Prognosis: Stable Discharge to: Home Updated Allergies/ADRs: Allergies Allergen Reactions ??? Fluoxetine Other (See Comments) HIVES, HEART RACES ??? Tegaderm [Transparent Dressings] Itching and Dermatitis Please use [id number] ??? Penicillins Immunizations Given this Hospitalization: Immunization History Administered Date(s) Administered ??? Influenza Vaccine (Novel) [id number], Injectable 02/25/2009 ??? Influenza Vaccine w/Preservative, Split [...] back. The number for Infectious Disease is [phone] if you have questions or do not [...] Bal PCP Office Your Inpatient Doctor(s) at [facility]: Dr. Perez - [facility] Medicine Dr. Hills and Dr. Jefferson - Infectious Disease. General Instructions [facility] Vascular and Interventional Radiology Discharge Instructions For [...] is during regular office hours, please call [phone]. If it is after regular office hours, or on weekends or holidays, please call [phone] and ask to speak to the Merchandising Coordinator home health occupational therapist for Interventional Radiology. You have received [...] PM Lilli Joy APRN Infectious Disease at [facility] Arrive at: Home [phone] Please do not come in for this visit. Your provider will call you at the number you provided. 08/13/2022 11:30 AM Sergey Keane MD Infectious Disease at [facility] Arrive at: Serology Technician Area [phone] Future Orders Complete By Expires IR Drain Check/Change/Remove [[id number] Custom] 07/20/2022 08/06/2022 Process Instructions: Scheduling Instructions: Questions: Where will study be performed?: [facility] Radiology Reason for exam and clinical [...] Tana Shelton for admission to Home Health. [address] [place] [address] Date of : 1995 Inpatient DOCUMENTATION FOR VNA SERVICES (INCLUDING THOSE PATIENTS WITH MEDICARE COVERAGE REQUIRING HOME VNA SERVICES AND/OR HOSPICE SERVICES) PATIENT'S LOCATION: Tana Shelton [address] [facility] [address] Cell: Telephone Information: Wafer Slicer's Name: Mother/Guardian Anderson [phone] In discussion with the attending physician, it is certified that this patient is under their care and that they, or a Nurse Practitioner,Clinical Nurse specialist or Physician Shrimp Picker who is working directly with them, [...] Jefferson, Dr Samuel HOME HEALTH CARE AGENCY: [facility]. [address] [place] [address] Start of care: Anticipated start of care 24-48 hours after discharge Please note that any additional orders needs or changes will need to be obtained from this patient's PCP: Lorna Bal APRN [address] [place] [id number] All A agencies which cover the area of patient's residence have been reviewed, either verbally fatoumata writing, and patient/family have chosen the home health care agency noted ' Questions: Disciplines Requested: Nursing Discharge References/Attachments None documented in this encounter Discharge Instructions * Discharge Instructions* Hollie Perez MD - 06/25/2022 5:20 AM EST [facility] Vascular and Interventional Radiology Discharge Instructions For [...] is during regular office hours, please call [phone]. If it is after regular office hours, or on weekends or holidays, please call [phone] and ask to speak to the Merchandising Coordinator home health occupational therapist for Interventional Radiology. You have received [...] back. The number for Infectious Disease is [phone] if you have questions or do not [...] Bal PCP Office Your Inpatient Doctor(s) at [facility] Dr. Perez - [facility] Medicine Dr. Hills and Dr. Jefferson - [...] Perez MD - 07/09/2022 9:59 AM EDT [facility] Medicine - Attending Day of Discharge Documentation [...] spent >30 minutes (Day of Discharge Code 93125) involved in the final examination of the [...] then cefepime vanc for 3 days at [facility] and discharged on cefpodoxime, referred to [...] of care, communication with family Full code RANGE SCIENTIST, nutrition recommendations, diet regular Anticipated Disposition, PT/OT recommendations Home tomorrow Team Pager ( Coverage 17/11) [phone] PCP Lorna Bal APRN Attestation IPI Certification I certify that I am a D-H credentialed attending provider with admitting privileges and that the patient meets or has met medical necessity to require an inpatient IPI level of care meeting a minimumof two midnights or is on the [facility] inpatient only procedure list (status C) due [...] future testing is required, contact the Microbiology Teller Supervisor. * No growth at 1 day. No [...] who have questions please contact the health dog daycare provider that requested your imaging first. Chest One [...] who have questions please contact the health dog daycare provider that requested your imaging first. Lumbar Spine [...] who have questions please contact the health dog daycare provider that requested your imaging first. Abdomen & [...] who have questions please contact the health dog daycare provider that requested your imaging first. Electronically signed by: Nathalie Whitaker MD, [facility] ([phone]), at 07/05/2022 5:38 PM * Chrissie Lee [...] of care, communication with family Full code RANGE SCIENTIST, nutrition recommendations, diet regular Anticipated Disposition, PT/OT recommendations Home in next 1-2 days Team Pager ( Coverage 17/11) [phone] PCP Lorna Bal APRN Attestation IPI Certification I certify that I am a D-H credentialed attending provider with admitting privileges and that the patient meets or has met medical necessity to require an inpatient IPI level of care meeting a minimumof two midnights or is on the [facility] inpatient only procedure list (status C) due [...] future testing is required, contact the Microbiology Teller Supervisor. * No growth at 1 day. ECG: [...] who have questions please contact the health dog daycare provider that requested your imaging first. Chest One [...] who have questions please contact the health dog daycare provider that requested your imaging first. Lumbar Spine [...] who have questions please contact the health dog daycare provider that requested your imaging first. Abdomen & [...] who have questions please contact the health dog daycare provider that requested your imaging first. Electronically signed by: Nathalie Whitaker MD, [facility] ([phone]), at 07/05/2022 5:38 PM * Sergey Keane MD - 07/07/2022 4:02 PM EDT Images from the original note were not included. DEPARTMENT OF INFECTIOUS DISEASE & INTERNATIONAL HEALTH INFECTIOUS DISEASE PROGRESS NOTE Reason for follow up: E coli bacteremia, Spinal collections, gluteal abscess Subjective:Case discussed during rounds with ID team and the attending Dr. Samuel Patient is seen and examined at bedside. shear tender at bedside, refers she is lethargic with [...] Sergey Doan MD Infectious Disease Fellow Pager [phone] 07/07/22 (Attending addendum to follow) Associated attestation [...] of care, communication with family Full code RANGE SCIENTIST, nutrition recommendations, diet regular Anticipated Disposition, PT/OT recommendations Home Team Pager ( Coverage 17/11) [phone] PCP Lorna Bal APRN Attestation IPI Certification [...] future testing is required, contact the Microbiology Teller Supervisor. * ECG: Recent Labs 07/04/22 0016 DIAGLINE [...] who have questions please contact the health dog daycare provider that requested your imaging first. Chest One [...] who have questions please contact the health dog daycare provider that requested your imaging first. Lumbar Spine [...] who have questions please contact the health dog daycare provider that requested your imaging first. Abdomen & [...] who have questions please contact the health dog daycare provider that requested your imaging first. * Willis [...] follow peripherally. - IR follow up ordered, barrel endshaker adjuster notified. Willis Calero DO, MBA Interventional Radiology [...] and ADLs]:?Total ?? Surveillance [continuous indirect monitoring]:?? [facility] near nurses' station [...] still not taking PO intake, per career representative have concerns for strep. No BM on [...] of care, communication with family Full code RANGE SCIENTIST, nutrition recommendations, diet regular Anticipated Disposition, PT/OT recommendations Home Team Pager ( Coverage 17/11) [phone] PCP Lorna Bal APRN Attestation IPI Certification I certify that I am a D-H credentialed attending provider with admitting privileges and that the patient meets or has met medical necessity to require an inpatient IPI level of care meeting a minimumof two midnights or is on the [facility] inpatient only procedure list (status C) due [...] who have questions please contact the health dog daycare provider that requested your imaging first. Chest One [...] who have questions please contact the health dog daycare provider that requested your imaging first. Lumbar Spine [...] who have questions please contact the health dog daycare provider that requested your imaging first. * Paige [...] and ADLs]:?Total ?? Surveillance [continuous indirect monitoring]:?? [facility] Room near nurses' station [...] of : 1995 AGE: 27 y.o. Address: [address] [place] [address] Phone: [phone] (home) Mobile: Telephone Information: Referring Provider: Lorna Bla REASON FOR VISIT: Order Questions Answers Is [...] [Transparent Dressings] Itching and Dermatitis Please use [id number] ??? Penicillins Pertinent PMH: Patient Active Problem [...] Sergey Doan MD Infectious Disease Fellow Pager [phone] 07/04/22 (Attending addendum to follow) Associated attestation [...] spiking fevers now. -Discussed with infectious disease clinical program consultant. Patient will get a repeat aspiration [...] of care, communication with family Full code RANGE SCIENTIST, nutrition recommendations, diet regular Anticipated Disposition, PT/OT recommendations Home Team Pager ( Coverage 17/11) [phone] PCP Lorna Bal APRN Attestation IPI Certification I certify that I am a D-H credentialed attending provider with admitting privileges and that the patient meets or has met medical necessity to require an inpatient IPI level of care meeting a minimumof two midnights or is on the [facility] inpatient only procedure list (status C) due [...] who have questions please contact the health dog daycare provider that requested your imaging first. Chest One [...] who have questions please contact the health dog daycare provider that requested your imaging first. Lumbar Spine [...] who have questions please contact the health dog daycare provider that requested your imaging first. * Paige [...] Clinical Pharmacist Note - VancFD Tana Shelton [id number] 1995 Tana Shelton is a 27 y.o. [...] have. Alternately,during off-hours (9p-) you may call [phone] to contact a pharmacist. Lilli Hughes RPH [...] of care, communication with family Full code RANGE SCIENTIST, nutrition recommendations, diet regular Anticipated Disposition, PT/OT recommendations Home Team Pager (MD Coverage 17/11) [phone] PCP Lorna Bal APRN Attestation IPI Certification I certify that I am a D-H credentialed attending provider with admitting privileges and that the patient meets or has met medical necessity to require an inpatient IPI level of care meeting a minimumof two midnights or is on the [facility] inpatient only procedure list (status C) due [...] change was found Confirmed by Lyndon Lafleur ([id number]) on 07/02/2022 5:10:53 PM QTCCALC 443 VASCULAR: [...] who have questions please contact the health dog daycare provider that requested your imaging first. Electronically signed by: Jamaal Villafuerte, [facility] ([phone]), at 06/24/2022 6:56 PM XR Chest One [...] who have questions please contact the health dog daycare provider that requested your imaging first. * Nury [...] of care, communication with family Full code RANGE SCIENTIST, nutrition recommendations, diet regular Anticipated Disposition, PT/OT recommendations Home Team Pager ( Coverage 17/11) [phone] PCP Lorna Bal APRN Attestation IPI Certification I certify that I am a D-H credentialed attending provider with admitting privileges and that the patient meets or has met medical necessity to require an inpatient IPI level of care meeting a minimumof two midnights or is on the [facility] inpatient only procedure list (status C) due [...] who have questions please contact the health dog daycare provider that requested your imaging first. * Karrie Smallwood - 07/02/2022 12:21 PM EST Nutrition Services Note - Low Nutrition Acuity Tana Shelton is a 27 y.o. female Reason for intervention: hospital day 9 Nutrition Plan: Continue current diet. Encourage good PO intake. Multivitamin with minerals noted. Monitor weight. Patient screened for hospital length of stay. Registered Nurse Maternal Child communicated with RN by secure chat and primary career representative by phone. Per primary caregiver, patient has [...] weeks ago, where patient weighed 108 lbs. Registered Nurse Maternal Child recommends an updated weight on patient to [...] unless consulted in the interim. ALEJANDRO Osei [phone] * Emeka Zavala MD - 07/02/2022 7:47 [...] of care, communication with family Full code RANGE SCIENTIST, nutrition recommendations, diet regular Anticipated Disposition, PT/OT recommendations Home Team Pager ( Coverage 17/11) [phone] PCP Lorna Bal APRN Attestation IPI Certification [...] Lateral leads Confirmed by MD Shabazz Danette ([id number]) on 06/29/2022 9:49:48 PM QTCCALC 458 VASCULAR: [...] who have questions please contact the health dog daycare provider that requested your imaging first. * Tegan Snyder RN - 07/01/2022 11:44 AM EST [facility] NURSING DATABASE Name: Tana Shelton Date of : 1995 AGE: 27 y.o. Address: [address] [place] [address] Phone: [phone] (home) Mobile: Telephone Information: Referring Provider: Lorna [...] [Transparent Dressings] Itching and Dermatitis Please use [id number] ??? Penicillins Pertinent PMH: Patient Active Problem [...] Patient Name: Tana Shelton : 1995 MR#: [id number] Received contact from primary team regarding drain [...] Sergey Doan MD Infectious Disease Fellow Pager [phone] 06/30/22 (Attending addendum to follow) Associated attestation [...] of care, communication with family Full code RANGE SCIENTIST, nutrition recommendations, diet regular Anticipated Disposition, PT/OT recommendations Home Team Pager ( Coverage 17/11) [phone] PCP Lorna Bal APRN Attestation IPI Certification I certify that I am a D-H credentialed attending provider with admitting privileges and that the patient meets or has met medical necessity to require an inpatient IPI level of care meeting a minimumof two midnights or is on the [facility] inpatient only procedure list (status C) due [...] Lateral leads Confirmed by MD Mele, Luba ([id number]) on 06/29/2022 9:49:48 PM QTCCALC 458 VASCULAR: [...] who have questions please contact the health dog daycare provider that requested your imaging first. * Estevan [...] of care, communication with family Full code RANGE SCIENTIST, nutrition recommendations, diet regular Anticipated Disposition, PT/OT recommendations Home Team Pager ( Coverage 17/11) [phone] PCP Lorna Bal APRN Attestation IPI Certification I certify that I am a D-H credentialed attending provider with admitting privileges and that the patient meets or has met medical necessity to require an inpatient IPI level of care meeting a minimumof two midnights or is on the [facility] inpatient only procedure list (status C) due [...] who have questions please contact the health dog daycare provider that requested your imaging first. * Edvin [...] of care, communication with family Full code RANGE SCIENTIST, nutrition recommendations, diet regular Anticipated Disposition, PT/OT recommendations Home Team Pager ( Coverage 17/11) [phone] PCP Lorna Bal APRN Attestation IPI Certification I certify that I am a D-H credentialed attending provider with admitting privileges and that the patient meets or has met medical necessity to require an inpatient IPI level of care meeting a minimumof two midnights or is on the [facility] inpatient only procedure list (status C) due [...] who have questions please contact the health dog daycare provider that requested your imaging first. * Anurag Call DO - 06/27/2022 6:20 PM EST HOSPITAL MEDICINE ATTENDING DAILY PROGRESS NOTE Patient Tana Shelton 1995 [id number] Physician Anurag Call DO Pager [phone] Encounter Date June 27, 2022 Admit Date 06/24/2022 Hospital Day 3 PCP Lorna Bal, SED MIDDLE SCHOOL TEACHER [phone] ASSESSMENT/PLAN: Active Hospital Problems Diagnosis ??? Spinal [...] minimumof two midnights or is on the [facility] inpatient only procedure list (status C) due [...] Zhanna Garrett - 06/26/2022 7:15 PM EST Boiler Maker Encounter Note Patient Name: Tana Shelton : [id number] MR#: [id number] Admit Date: 06/24/2022 2:05 PM Hospital Day [...] Tana's mom would be coming back from [place] until the hospital knows what next stepsare. Fannie stated that she was so glad she got Tana to [facility], as the smaller hospitals were dissmissing and [...] Call DO - 06/26/2022 4:51 PM EST [facility] MEDICINE ATTENDING DAILY PROGRESS NOTE Patient Tana Shelton 1995 [id number] Physician Anurag Call DO Pager [phone] Encounter Date June 26, 2022 Admit Date 06/24/2022 Hospital Day 2 PCP Lorna Bal, SED MIDDLE SCHOOL TEACHER [phone] ASSESSMENT/PLAN: Active Hospital Problems Diagnosis ??? Spinal [...] minimumof two midnights or is on the [facility] inpatient only procedure list (status C) due [...] DAILY PROGRESS NOTE Patient Tana Shelton 1995 [id number] Physician Anurag Call DO Pager [phone] Encounter Date June 25, 2022 Admit Date 06/24/2022 Hospital Day 1 PCP Lorna Bal, SED MIDDLE SCHOOL TEACHER [phone] ASSESSMENT/PLAN: Active Hospital Problems Diagnosis ??? Spinal [...] data in the 24 hours ending 06/25/22 [id number] GEN: awake, alert, NAD HEENT: PERRLA, EOMI, [...] who have questions please contact the health dog daycare provider that requested your imaging first. ULTANTS: IP [...] minimumof two midnights or is on the [facility] inpatient only procedure list (status C) due to: Possible spinal abscess with involvement of previous placed hardware Anurag Call DO [phone] Hospitalist 06/25/2022 5:37 PM * Gadiel Morris RN - 06/25/2022 4:19 PM EST ANGIO NURSING DATABASE Name: Tana Shelton Date of : 1995 AGE: 27 y.o. Address: [address] [place] [address] (home) Mobile: Telephone Information: Referring Provider: Lorna [...] [Transparent Dressings] Itching and Dermatitis Please use [id number] ??? Penicillins Pertinent PMH: Patient Active Problem [...] All Drainage Procedures 06/25/2022 Mich Martino MD [facility] INTERVENTIONL RAD ??? IR DRAIN CHECK/CHANGE/REMOVE 07/01/2022 IR Drain Check/Change/Remove 07/01/2022 Jamaal Jenkins, DO [facility] INTERVENTIONL RAD ??? PRO APPLY OF HIP CASTS, TWO LEGS 08/15/2010 CAST APPLICATION, HIP SPICA, BOTH LEGS performed by BARRERA OLIVER at [facility] MAIN OR ? ? PRO I&D, POST SPINE, LUMB/SACR/LUMBOSAC N/A 05/20/2014 @I & D, OPEN, DEEP ABSCESS, LUMBAR, SACRAL, LUMBOSACRAL performed by Freddy Isbell MD at [facility] MAIN OR ? ? PRO I&D, POST SPINE, LUMB/SACR/LUMBOSAC N/A 05/26/2014 @I & D, OPEN, DEEP ABSCESS, LUMBAR, SACRAL, LUMBOSACRAL performed by Freddy Isbell MD at [facility] MAIN OR ??? PRO IMPACT TOOTH REMOV COMP BONY N/A 06/14/2018 SURGICAL EXTRACTIONS, REMOVAL OF IMPACTED TOOTH, COMPLETELY BONY (WRVU 1.93) performed by Keith Cotton MD at [facility] OSC ??? PRO OSTEOTOMY FEMUR SHAFT/SUPRACONDY 08/15/2010 ??OSTEOTOMY, FEMUR SHAFT OR SUPRACONDYLAR W/O FIXATION performed by BARRERA OLIVER at [facility] MAIN OR ??? PRO RECONSTRUC HIP SOCKET, RESEC FEM HEAD 08/15/2010 ??ACETABULOPLASTY (GIRDLESTONE), RESECTION FEMORAL HEAD, BILATERAL performed by [facility] MAIN OR ??? PRO REMOVAL DEEP IMPLANT 08/15/2010 REMOVAL IMPLANT, DEEP, BRUNO performed by BARRERA OLIVER at [facility] MAIN OR ??? PRO REMOVAL ERUPTED TOOTH WITH ELEVATION OF MUCOPERIOSTEAL FLAP N/A 06/14/2018 SURGICAL EXTRACTIONS REQUIRING ELEVATION OF MUCOPERIOSTEAL FLAP AND REMOVAL OF BONE OR SECTION OF TOOTH (WRVU 1.09) performed by Keith Cotton MD at [facility] OSC ??? PRO REMOVE INFUSN DEVICE/PUMP N/A 05/11/2014 REMOVAL OF SPINE INFUSION PUMP performed by Jamaal Samuel MD at [facility] MAIN OR ??? PRO REMOVE SPINAL CANAL CATHETER N/A 05/11/2014 REMOVAL OF INTRATHECAL OR EPIDURAL CATHETER performed by Jamaal Samuel MD at [facility] MAIN OR ??? PRO REPR, DURAL/CSF LEAK, NOT REQ LAMINECTOMY N/A 05/20/2014 @REPAIR DURAL\CSF LEAK,NOT REQUIRING LAMINECTOMY performed by Freddy Isbell MD at [facility] MAIN OR Social History and Habits: [...] of procedure) 07/04/2022 Chrissie Lee PA-C * [place], DEMI Torres - 07/01/2022 9:39 AM EST [...] All Drainage Procedures 06/25/2022 Mich Martino MD [facility] INTERVENTIONL RAD ??? PRO APPLY OF HIP CASTS, TWO LEGS 08/15/2010 CAST APPLICATION, HIP SPICA, BOTH LEGS performed by BARRERA OLIVER at [facility] MAIN OR ? ? PRO I&D, POST SPINE, LUMB/SACR/LUMBOSAC N/A 05/20/2014 @I & D, OPEN, DEEP ABSCESS, LUMBAR, SACRAL, LUMBOSACRAL performed by Freddy Isbell MD at [facility] MAIN OR ? ? PRO I&D, POST SPINE, LUMB/SACR/LUMBOSAC N/A 05/26/2014 @I & D, OPEN, DEEP ABSCESS, LUMBAR, SACRAL, LUMBOSACRAL performed by Freddy Isbell MD at [facility] MAIN OR ??? PRO IMPACT TOOTH REMOV COMP BONY N/A 06/14/2018 SURGICAL EXTRACTIONS, REMOVAL OF IMPACTED TOOTH, COMPLETELY BONY (WRVU 1.93) performed by Keith Cotton MD at [facility] OSC ??? PRO OSTEOTOMY FEMUR SHAFT/SUPRACONDY 08/15/2010 ??OSTEOTOMY, FEMUR SHAFT OR SUPRACONDYLAR W/O FIXATION performed by BARRERA OLIVER at [facility] MAIN OR ??? PRO RECONSTRUC HIP SOCKET, RESEC FEM HEAD 08/15/2010 ??ACETABULOPLASTY (GIRDLESTONE), RESECTION FEMORAL HEAD, BILATERAL performed by BARRERA OLIVER [facility] OR ??? PRO REMOVAL DEEP IMPLANT 08/15/2010 REMOVAL IMPLANT, DEEP, BRUNO performed by BARRERA OLIVER at [facility] MAIN OR ??? PRO REMOVAL ERUPTED TOOTH WITH ELEVATION OF MUCOPERIOSTEAL FLAP N/A 06/14/2018 SURGICAL EXTRACTIONS REQUIRING ELEVATION OF MUCOPERIOSTEAL FLAP AND REMOVAL OF BONE OR SECTION OF TOOTH (WRVU 1.09) performed by Keith Cotton MD at [facility] OSC ??? PRO REMOVE INFUSN DEVICE/PUMP [...] [facility] OR Social History and Habits: [...] Tegaderms. S. Gómez Ellison MD PGY-2 Pager #[phone] Department of Radiology [facility] 06/25/2022 Source Note - Hank [...] BOTH LEGS performed by BARRERA OLIVER at [facility] MAIN OR ? ? PRO I&D, POST SPINE, LUMB/SACR/LUMBOSAC N/A 05/20/2014 @I & D, OPEN, DEEP ABSCESS, LUMBAR, SACRAL, LUMBOSACRAL performed by Freddy Isbell MD at [facility] MAIN OR ? ? PRO I&D, POST SPINE, LUMB/SACR/LUMBOSAC N/A 05/26/2014 @I & D, OPEN, DEEP ABSCESS, LUMBAR, SACRAL, LUMBOSACRAL performed by Freddy Isbell MD at [facility] MAIN OR ??? PRO IMPACT TOOTH REMOV COMP BONY N/A 06/14/2018 SURGICAL EXTRACTIONS, REMOVAL OF IMPACTED TOOTH, COMPLETELY BONY (WRVU 1.93) performed by Keith Cotton MD at [facility] OSC ??? PRO OSTEOTOMY FEMUR SHAFT/SUPRACONDY 08/15/2010 ??OSTEOTOMY, FEMUR SHAFT OR SUPRACONDYLAR W/O FIXATION performed by BARRERA OLIVER at [facility] MAIN OR ??? PRO RECONSTRUC HIP SOCKET, RESEC FEM HEAD 08/15/2010 ??ACETABULOPLASTY (GIRDLESTONE), RESECTION FEMORAL HEAD, BILATERAL performed by [facility] MAIN OR ??? PRO REMOVAL DEEP IMPLANT 08/15/2010 REMOVAL IMPLANT, DEEP, BRUNO performed by BARRERA OLIVER at [facility] MAIN OR ??? PRO REMOVAL ERUPTED TOOTH WITH ELEVATION OF MUCOPERIOSTEAL FLAP N/A 06/14/2018 SURGICAL EXTRACTIONS REQUIRING ELEVATION OF MUCOPERIOSTEAL FLAP AND REMOVAL OF BONE OR SECTION OF TOOTH (WRVU 1.09) performed by Keith Cotton MD at [facility] OSC ??? PRO REMOVE INFUSN DEVICE/PUMP N/A 05/11/2014 REMOVAL OF SPINE INFUSION PUMP performed by Jamaal Samuel MD at [facility] MAIN OR ??? PRO REMOVE SPINAL CANAL CATHETER N/A 05/11/2014 REMOVAL OF INTRATHECAL OR EPIDURAL CATHETER performed by Jamaal Samuel MD at [facility] MAIN OR ??? PRO REPR, DURAL/CSF LEAK, NOT REQ LAMINECTOMY N/A 05/20/2014 @REPAIR DURAL\CSF LEAK,NOT REQUIRING LAMINECTOMY performed by Freddy Isbell MD at [facility] MAIN OR Social history and habits: Social [...] BOTH LEGS performed by BARRERA OLIVER at [facility] MAIN OR ? ? PRO I&D, POST SPINE, LUMB/SACR/LUMBOSAC N/A 05/20/2014 @I & D, OPEN, DEEP ABSCESS, LUMBAR, SACRAL, LUMBOSACRAL performed by Freddy Isbell MD at [facility] MAIN OR ? ? PRO I&D, POST SPINE, LUMB/SACR/LUMBOSAC N/A 05/26/2014 @I & D, OPEN, DEEP ABSCESS, LUMBAR, SACRAL, LUMBOSACRAL performed by Freddy Isbell MD at [facility] MAIN OR ??? PRO IMPACT TOOTH REMOV COMP BONY N/A 06/14/2018 SURGICAL EXTRACTIONS, REMOVAL OF IMPACTED TOOTH, COMPLETELY BONY (WRVU 1.93) performed by Keith Cotton MD at [facility] OSC ??? PRO OSTEOTOMY FEMUR SHAFT/SUPRACONDY 08/15/2010 ??OSTEOTOMY, FEMUR SHAFT OR SUPRACONDYLAR W/O FIXATION performed by BARRERA OLIVER at [facility] MAIN OR ??? PRO RECONSTRUC HIP SOCKET, RESEC FEM HEAD 08/15/2010 ??ACETABULOPLASTY (GIRDLESTONE), RESECTION FEMORAL HEAD, BILATERAL performed by BARRERA OLIVER [facility] OR ??? PRO REMOVAL DEEP IMPLANT 08/15/2010 REMOVAL IMPLANT, DEEP, BRUNO performed by BARRERA OLIVER at [facility] OR ??? PRO REMOVAL ERUPTED TOOTH WITH ELEVATION OF MUCOPERIOSTEAL FLAP N/A 06/14/2018 SURGICAL EXTRACTIONS REQUIRING ELEVATION OF MUCOPERIOSTEAL FLAP AND REMOVAL OF BONE OR SECTION OF TOOTH (WRVU 1.09) performed by Keith Cotton MD at [facility] OSC ??? PRO REMOVE INFUSN DEVICE/PUMP [...] [facility] OR Social history and habits: [...] quadriplegia ID: 27 y.o. Female [facility] with redness and drainage from midline surgical [...] however on 06/17 she was brought to [facility] by her senior merchandiser for possibly increased back pain and received [...] BOTH LEGS performed by BARRERA OLIVER at [facility] MAIN OR ? ? PRO I&D, POST SPINE, LUMB/SACR/LUMBOSAC N/A 05/20/2014 @I & D, OPEN, DEEP ABSCESS, LUMBAR, SACRAL, LUMBOSACRAL performed by Freddy Isbell MD at [facility] MAIN OR ? ? PRO I&D, POST SPINE, LUMB/SACR/LUMBOSAC N/A 05/26/2014 @I & D, OPEN, DEEP ABSCESS, LUMBAR, SACRAL, LUMBOSACRAL performed by Freddy Isbell MD at [facility] MAIN OR ??? PRO IMPACT TOOTH REMOV COMP BONY N/A 06/14/2018 SURGICAL EXTRACTIONS, REMOVAL OF IMPACTED TOOTH, COMPLETELY BONY (WRVU 1.93) performed by Keith Cotton MD at [facility] OSC ??? PRO OSTEOTOMY FEMUR SHAFT/SUPRACONDY 08/15/2010 ??OSTEOTOMY, FEMUR SHAFT OR SUPRACONDYLAR W/O FIXATION performed by BARRERA OLIVER at [facility] MAIN OR ??? PRO RECONSTRUC HIP SOCKET, RESEC FEM HEAD 08/15/2010 ??ACETABULOPLASTY (GIRDLESTONE), RESECTION FEMORAL HEAD, BILATERAL performed by [facility] MAIN OR ??? PRO REMOVAL DEEP IMPLANT 08/15/2010 REMOVAL IMPLANT, DEEP, BRUNO performed by BARRERA OLIVER at [facility] MAIN OR ??? PRO REMOVAL ERUPTED TOOTH WITH ELEVATION OF MUCOPERIOSTEAL FLAP N/A 06/14/2018 SURGICAL EXTRACTIONS REQUIRING ELEVATION OF MUCOPERIOSTEAL FLAP AND REMOVAL OF BONE OR SECTION OF TOOTH (WRVU 1.09) performed by Keith Cotton MD at [facility] OSC ??? PRO REMOVE INFUSN DEVICE/PUMP N/A 05/11/2014 REMOVAL OF SPINE INFUSION PUMP performed by Jamaal Samuel MD at [facility] MAIN OR ??? PRO REMOVE SPINAL CANAL CATHETER N/A 05/11/2014 REMOVAL OF INTRATHECAL OR EPIDURAL CATHETER performed by Jamaal Samuel MD at [facility] MAIN OR ??? PRO REPR, DURAL/CSF LEAK, NOT REQ LAMINECTOMY N/A 05/20/2014 @REPAIR DURAL\CSF LEAK,NOT REQUIRING LAMINECTOMY performed by Freddy Isbell MD at [facility] MAIN OR Prior To Admission Medications: (Not in a hospital admission) Allergies: Allergies Allergen Reactions ??? Fluoxetine Other (See Comments) HIVES, HEART RACES ??? Tegaderm [Transparent Dressings] Itching and Dermatitis Please use [id number] ??? Penicillins Family History: Family History Problem [...] Administered Date(s) Administered ??? Influenza Vaccine (Novel) [id number], Injectable 02/25/2009 ??? Influenza Vaccine w/Preservative, Split [...] improvement in thecellulitis. Tana was brought [facility] on 06/17/2022 by her senior merchandiser as there was some concern for having perceived pain her back (patient is non-verbal). Patient was hospitalized for IV antibiotic treatment of a presumed cellulitis. examination by providers at [facility] did not not preceded evidence of [...] patient was evaluated by orthopaedics at [facility] (Dr. Weiss) who did not recommend attempting to aspirate the area. Inflammatory labs on 06/19/20 were: WBC: 7, CRP: 7.5. She is afebrile, and there have been no fevers since the time she began oral antibiotics for the cellulitis. Prior to discharge Dr. Simmons from orthopedics at [facility] once consulted. Per his note on [...] be progressing again since her discharge from [facility] on 06/19/2020. Patient hasbeen afebrile [...] and did the previous consult note from [facility]. Spoke with orthopedics who are recommending [...] 2046: Orthopedics were able to reach their surgical training specialist and will evaluate patient. Plan based [...] who have questions please contact the health dog daycare provider that requested your imaging first. Assessment and Plan: 27 y.o. female with history of spastic quadriplegia CP, scoliosis, prior bilateral Girdlestone's who was recently discharged home on 06/19/2021 from [facility] where she received IV antibiotics [...] information for follow-up Home [facility], [place] [address] [place] [address] Transportation: family or friend will provide *Mother [...] agreement with plan. Phyllis Abraham RN, BSN Harness Installer - Medicine Office of Care Management Office: Pager: [phone] * Plan of Care - Jigna Neal [...] if applicable:?[X]N/A * Plan of Care - ValerioDiandra - 07/08/2022 3:11 AM EDT OUTCOME EVALUATION [...] assessment: [current deficits]: Poor mobility, IV sites, MAYRA orientation Assistance [level of assistance required for transfers and ambulation]: 2A w/ Lift Supervision [direct monitoring required during toileting and ADLs]: Hands on, eyes on Surveillance [continuous indirect monitoring]: Purposeful rounding, caregiver at bedside, bed in lowest position, room near unit station, call fya within reach. Patient-specific fall prevention interventions for [...] yesterday morning Please call with any questions #[phone] Jean-Pierre Godinez RN * Consult Note - Vi Lawrence [facility] - 07/05/2022 8:27 AM EST ?? [...] Alternately, during off-hours you comfort mason call 8-2021 to contact a pharmacist. * Care Management [...] Agency/Support Group Needs: Homecare agency Agency Referrals: [facility] following for DC needs and possible acceptance. Transportation: family or friend will provide Barriers to discharge: Discharge planning Plan going forward: Repeat CT lumbar spine today due to recurrent low grade fevers Care Management will continue to follow and assist with discharge planning and coordination of care as indicated. Anticipated Date of Discharge: 07/07/2022 Phyllis Abraham RN, BSN Harness Installer - Medicine Office of Care Management Office: Pager: [phone] * Care Management - Amy Trejo RN [...] Agency Referrals: I have met with the telephone services sales representative (anderson) to: ?? discuss discharge planning needs. ?? provide the [facility], Office of Care Management letter from the [employer]om[employer] pertaining to rehabreferrals. ?? provide a letter describing our affiliations within the [facility] and educate about their right to choose where referrals are sent. ?? provide a list of Home Health Agencies / Durable Medical Equipment vendors which serve their preferred geographic area. ?? provided patient with CMS Star Quality Rating handout. They have requested referrals to: [facility]. [address] [place] [id number] Note routed to a Academic Physician who will communicate referrals to facilities and [...] Date of Discharge: 07/03/2022 Amy Trejo RN, Pager-[phone] * Plan of Care - Katherine Ryan RN - 07/02/2022 4:51 PM EST OUTCOME EVALUATION NOTE: OUTCOME SUMMARY: Alert on RA, assessment as documented. Does not appear to be in pain. LR 500cc bolus fo SBP 94 increased to 110. HR remain tachy to low 100s. Cont LR discontinued. [facility]ed for UA sample. CXR obtained. High temp [...] improvement. On 06/17 she was seen at [facility] due to increased back pain and [...] with you. Please call with questions, pager [phone]. Discussed with attending, Dr. Brown Tee MD [...] is possible that her prior antibiotics at [facility] have made cultures less sensitive. * Plan of Care - Piter Magaña RN - 06/28/2022 5:15 AM EST OUTCOME EVALUATION NOTE: OUTCOME SUMMARY: Patient has been sleeping intermittently throughout the night. VSS. Mom remains atthe bedside and is attentive to patient. Continues on tele. HR noted to sustain in the 120's-130's.Tele showed ST. All other VSS. Patient asymptomatic. MD ([id number]) made aware and ordered 500 ml bolus [...] lift device [facility] [address] Social & Family Supports: All names listed below confirmed with patient as current and correct Extended Emergency Contact Information Primary Emergency Contact: Anderson Thorpe [facility] Mobile Relation: Mother Secondary Emergency Contact: Jose MartinCurt [facility] Mobile Relation: Step parent Current Care [...] Insurance: N/A Prescription Coverage: Yes Preferred Pharmacy: [facility] [address] [place] [address] [address] [facility] - [place], [place] - [address] [facility] [address] [facility] [address] [facility] [address] - [place], [place] - [address] [facility] [address] [facility] [address] Status: Patient is a : No Primary Care Provider confirmed: Lorna Bal, [employer] TE[employer] [phone] Patient/Caregiver Goals of Treatment: Caregiver anticipates return [...] of care planning. Alicja Franklin RN, BSN morning news anchor Office of Care Management Pager: [phone] * Consult Note - Piter Palmer MD [...] in years. Patient was originally seen at [facility] where an ultrasound performed demonstrating a small fluid collection in the subcutaneous tissue. Patient was admitted for 2 days at [facility] for IV antibiotics and then ultimately transitioned to p.o. antibiotics on discharge. Patient presents to the [facility] today for persistent erythema despite antibiotic [...] BOTH LEGS performed by BARRERA OLIVER at [facility] MAIN OR ? ? PRO I&D, POST SPINE, LUMB/SACR/LUMBOSAC N/A 05/20/2014 @I & D, OPEN, DEEP ABSCESS, LUMBAR, SACRAL, LUMBOSACRAL performed by Freddy Isbell MD at [facility] MAIN OR ? ? PRO I&D, POST SPINE, LUMB/SACR/LUMBOSAC N/A 05/26/2014 @I & D, OPEN, DEEP ABSCESS, LUMBAR, SACRAL, LUMBOSACRAL performed by Freddy Isbell MD at [facility] MAIN OR ??? PRO IMPACT TOOTH REMOV COMP BONY N/A 06/14/2018 SURGICAL EXTRACTIONS, REMOVAL OF IMPACTED TOOTH, COMPLETELY BONY (WRVU 1.93) performed by Keith Cotton MD at [facility] OSC ??? PRO OSTEOTOMY FEMUR SHAFT/SUPRACONDY 08/15/2010 ??OSTEOTOMY, FEMUR SHAFT OR SUPRACONDYLAR W/O FIXATION performed by BARRERA OLIVER at [facility] MAIN OR ??? PRO RECONSTRUC HIP SOCKET, RESEC FEM HEAD 08/15/2010 ??ACETABULOPLASTY (GIRDLESTONE), RESECTION FEMORAL HEAD, BILATERAL performed by BARRERA OLIVER [facility] OR ??? PRO REMOVAL DEEP IMPLANT 08/15/2010 REMOVAL IMPLANT, DEEP, BRUNO performed by BARRERA OLIVER at [facility] MAIN OR ??? PRO REMOVAL ERUPTED TOOTH WITH ELEVATION OF MUCOPERIOSTEAL FLAP N/A 06/14/2018 SURGICAL EXTRACTIONS REQUIRING ELEVATION OF MUCOPERIOSTEAL FLAP AND REMOVAL OF BONE OR SECTION OF TOOTH (WRVU 1.09) performed by Keith Cotton MD at [facility] OSC ??? PRO REMOVE INFUSN DEVICE/PUMP [...] [facility] OR Home Medications: (Not in a hospital admission) Allergies: Allergies Allergen Reactions ??? Fluoxetine Other (See Comments) HIVES, HEART RACES ??? Tegaderm [Transparent Dressings] Itching and Dermatitis Please use [id number] ??? Penicillins Current Medications: No current facility-administered [...] possible poor wound healing. Joe Harrison MD [facility] - Department of Orthopaedic Surgery Planting Material Carrier - Department of Orthopedic Surgery / Academics and Research Cadmium Liquor Maker Professor - [facility] 06/25/2022 * Consult Note - Kelvin Munson, [facility] - 06/24/2022 9:44 PM EST TelePharmacy Home Medication List Update for Medication Reconciliation 06/24/22 9:45 PM Tana Shelton 1995 Allergies Allergen Reactions ??? Fluoxetine Other (See Comments) HIVES, HEART RACES ??? Tegaderm [Transparent Dressings] Itching and Dermatitis Please use [id number] ??? Penicillins ??? Person Interviewed: adult senior merchandiser ??? Quality of Interview/accuracy of medication list: [...] PM EST Office [place] [address] Hollie Ambriz MD [facility] [address] Scheduled Referrals Name Type Priority Associated Diagnoses [...] 3:55 AM EDT) Neutrophil % 51.7 % [facility] Neutrophil Absolute 3.50 1.70 - 6.10 x10(3)/mc L [facility] Lymph % 39.1 % [facility] Lymphocytes Abs 2.6 0.9 - 3.2 x10(3)/mc L [facility] Monocyte % 5.9 % [facility] Monocyte Abs 0.4 0.3 - 0.9 x10(3)/mc L [facility] Eos % 1.5 % [facility] Eosinophils Abs 0.1 0.0 - 0.4 x10(3)/mc L [facility] Basophil % 0.6 % [facility] Baso Absolute 0.0 0.0 - 0.1 x10(3)/mc L [facility] Immature Gran % 1.20 % [facility] Comment: Immature granulocytes(IG's)percentage and absolute count will include metamyelocytes, myelocytes, and promyelocytes. Blood smears from CBCs yielding IG's will be scanned manually for concordance. If this scan disagrees with the automated IG or if promyelocytes are noted, a manual differential will be performed. Immature Gran Absolute 0.08(H) 0.00 - 0.04 x10(3)/mc L [facility] Blood 07/09/2022 3:55 AM EDT 07/09/2022 4:02 AM EDT Narrative Resulting Agency Comment Spec In Lab Hollie Perez MD HEMATOLOGY ORDERABL ES [facility] [place] [address] * (ABNORMAL) Hemogram (07/09/2022 3:55 AM EDT) White Blood Cell 6.8 4.0 - 9.5 x10(3)/mc L [facility] Red Blood Cell 3.54(L) 4.00 - 5.21 x10(6)/mc L [facility] Hemoglobin 8.8(L) 11.7 - 15.5 g/dL [facility] Hematocrit 28.1(L) 35.7 - 45.8 % [facility] Mean Cell Volume 79.4(L) 82.6 - 94.4 fL [facility] Mean Cell Hemoglobin 24.9(L) 27.1 - 32.0 pg [facility] Mean Cell Hemoglobin Concentration 31.3(L) 31.7 - 35.0 g/dL [facility] Platelet 386(H) 145 - 357 x10(3)/mc L [facility] RDW Standard Deviation 57.2(H) 37.0 - 46.0 fL [facility] RDW coefficient of variation 20.9(H) 11.5 - 14.1 % [facility] Mean Platelet Volume 9.4 7.6 - 12.9 fL [facility] NRBC% auto 0.0 % [facility] NRBC Absolute 0.000 0.000 - 0.000 x10(3)/mc L [facility] Blood 07/09/2022 3:55 AM EDT 07/09/2022 4:02 AM EDT Narrative Resulting Agency Comment Spec In Lab Hollie Perez MD HEMATOLOGY ORDERABL ES Performing Organization Address [facility]/ZIP Co de Phone Number [facility] [place] [place] [address] * (ABNORMAL) Basic Metabolic Panel (non-fasting) (07/09/2022 3:55 AM EDT) Glucose 101 65 - 199 mg/dL [facility] Comment:Diabetes: >=200 mg/d L plus symptoms Blood Urea Nitrogen 8 8 - 18 mg/dL [facility] Creatinine 0.26(L) 0.70 - 1.20 mg/dL [facility] Sodium 139 135 - 145 mmol/L [facility] Potassium 4.2 3.5 - 5.0 mmol/L [facility] Comment: Please note: ??Patients with WBC >100,000 may have falsely elevated Potassium levels. ??For accurate Potassium quantification in these patients send serum separator tube (gold top) for subsequent determinations. ??Contact the Clinical Chemistry Laboratory if there are any questions. Chloride 104 98 - 107 mmol/L [facility] Carbon Dioxide 23 22 - 31 mmol/L [facility] Anion Gap 12 5 - 15 mmol/L [facility] Calcium 9.1 8.5 - 10.5 mg/dL [facility] Est Glomerular Filtration Rate 152 >=60 mL/min/1. 73 m?? [facility] Comment: This patient's estimated GFR was [...] Lab Hollie Perez MD CHEMISTRY ORDERABLE S [facility] [place] [address] * IR Site Check In Recovery Room (07/08/2022 10:29 AM EDT) Narrative Dicom, Auditing User - 07/08/2022 10:29 AM EDT This exam is auto-finalizing. No interpretation was done. Hollie Perez MD IMG IR ORDERABLES * (ABNORMAL) Differential, Automated (07/08/2022 5:48 AM EDT) Neutrophil % 49.5 % [facility] Neutrophil Absolute 2.62 1.70 - 6.10 x10(3)/mc L [facility] Lymph % 41.6 % [facility] Lymphocytes Abs 2.2 0.9 - 3.2 x10(3)/mc L [facility] Monocyte % 5.5 % [facility] Monocyte Abs 0.3 0.3 - 0.9 x10(3)/mc L [facility] Eos % 2.1 % [facility] Eosinophils Abs 0.1 0.0 - 0.4 x10(3)/mc L [facility] Basophil % 0.4 % [facility] Baso Absolute 0.0 0.0 - 0.1 x10(3)/mc L [facility] Immature Gran % 0.90 % [facility] Comment: Immature granulocytes(IG's)percentage and absolute count will include metamyelocytes, myelocytes, and promyelocytes. Blood smears from CBCs yielding IG's will be scanned manually for concordance. If this scan disagrees with the automated IG or if promyelocytes are noted, a manual differential will be performed. Immature Gran Absolute 0.05(H) 0.00 - 0.04 x10(3)/mc L [facility] Blood 07/08/2022 5:48 AM EDT 07/08/2022 5:53 AM EDT Narrative Resulting Agency Comment Spec In Lab Hollie Perez MD HEMATOLOGY ORDERABL ES [facility] [place] [address] * (ABNORMAL) Hemogram (07/08/2022 5:48 AM EDT) White Blood Cell 5.3 4.0 - 9.5 x10(3)/mc L [facility] Red Blood Cell 3.42(L) 4.00 - 5.21 x10(6)/mc L [facility] Hemoglobin 8.4(L) 11.7 - 15.5 g/dL [facility] Hematocrit 27.2(L) 35.7 - 45.8 % [facility] Mean Cell Volume 79.5(L) 82.6 - 94.4 fL [facility] Mean Cell Hemoglobin 24.6(L) 27.1 - 32.0 pg [facility] Mean Cell Hemoglobin Concentration 30.9(L) 31.7 - 35.0 g/dL [facility] Platelet 336 145 - 357 x10(3)/mc L [facility] RDW Standard Deviation 55.7(H) 37.0 - 46.0 fL [facility] RDW coefficient of variation 19.9(H) 11.5 - 14.1 % [facility] Mean Platelet Volume 9.2 7.6 - 12.9 fL [facility] NRBC% auto 0.4 % [facility] NRBC Absolute 0.020(H) 0.000 - 0.000 x10(3)/ L [facility] Blood 07/08/2022 5:48 AM EDT 07/08/2022 5:53 AM EDT Narrative Resulting Agency Comment Spec In Lab Hollie Perez MD HEMATOLOGY ORDERABL ES [facility] [place] [address] * (ABNORMAL) Basic Metabolic Panel (non-fasting) (07/08/2022 5:48 AM EDT) Glucose 92 65 - 199 mg/dL [facility] Comment:Diabetes: >=200 mg/d L plus symptoms Blood Urea Nitrogen 6(L) 8 - 18 mg/dL [facility] Creatinine 0.24(L) 0.70 - 1.20 mg/dL [facility] Sodium 140 135 - 145 mmol/L [facility] Potassium 3.8 3.5 - 5.0 mmol/L [facility] Comment: Please note: ??Patients with WBC >100,000 may have falsely elevated Potassium levels. ??For accurate Potassium quantification in these patients send serum separator tube (gold top) for subsequent determinations. ??Contact the Clinical Chemistry Laboratory if there are any questions. Chloride 105 98 - 107 mmol/L [facility] Carbon Dioxide 23 22 - 31 mmol/L [facility] Anion Gap 12 5 - 15 mmol/L [facility] Calcium 8.7 8.5 - 10.5 mg/dL [facility] Est Glomerular Filtration Rate 155 >=60 mL/min/1. 73 m?? [facility] Comment: This patient's estimated GFR was [...] Lab Hollie Perez MD CHEMISTRY ORDERABLE S [facility] [place] [address] * Cortisol (07/08/2022 5:48 AM EDT) Cortisol 17.6 mcg/dL [facility] Comment: Reference ranges: ??AM (6-10am): ??4.8-19.5 mcg/dL ??PM (4-8pm) : ??2.5-11.9 mcg/dL Blood 07/08/2022 5:48 AM EDT 07/08/2022 5:53 AM EDT Narrative Resulting Agency Comment Spec In Lab Hollie Perez MD CHEMISTRY ORDERABLE S [facility] [place] [address] * (ABNORMAL) CRP, acute inflammation (07/08/2022 5:48 AM EDT) C-Reactive Protein 16.8(H) <=4.9 mg/L [facility] Blood 07/08/2022 5:48 AM EDT 07/08/2022 5:53 AM EDT Narrative Resulting Agency Comment Spec In Lab Hollie Perez MD CHEMISTRY ORDERABLE S Performing Organization Address [facility] Co de Phone Number [facility] [place] [address] * (ABNORMAL) Ferritin (07/08/2022 5:48 AM EDT) Ferritin 204(H) 15 - 150 ng/mL [facility] Comment: Pediatric reference ranges not [place] [facility] interpret with caution. Reference ranges for females greater than 50 years of age approach values for men, i.e., 30-400 ng/mL. Blood 07/08/2022 5:48 AM EDT 07/08/2022 5:53 AM EDT Narrative Resulting Agency Comment Spec In Lab Hollie Perez MD CHEMISTRY ORDERABLE S Performing Organization Address City/[facility]/ZIP Co de Phone Number [facility] [place] [address] * (ABNORMAL) Iron and TIBC (07/08/2022 5:48 AM EDT) Iron 52 30 - 150 mcg/dL [facility] TIBC 217(L) 250 - 450 mcg/dL [facility] Iron Saturation 24 20 - 50 % [facility] Blood 07/08/2022 5:48 AM EDT 07/08/2022 5:53 AM EDT Narrative Resulting Agency Comment Spec In Lab Hollie Perez MD CHEMISTRY ORDERABLE S Performing Organization Address [facility] Co de Phone Number [facility] [place] [address] * EKG 12 Lead (07/07/2022 11:44 AM EDT) Ventricular rate 78 BPM MUSE SYSTEM Atrial Rate 78 BPM MUSE SYSTEM P-R Interval 132 ms MUSE SYSTEM QRS Duration 84 ms MUSE SYSTEM Q-T Interval 410 ms MUSE SYSTEM QTC Calculated (Bezet) 467 ms MUSE SYSTEM Calculated P [place] 23 degrees MUSE SYSTEM Calculated R [place] 0 degrees MUSE SYSTEM Calculated T [place] 24 degrees MUSE SYSTEM INTERPRETATION Normal sinus [...] Perez MD ECG ORDERABLES Performing Organization Address [facility] de Phone Number MUSE SYSTEM * (ABNORMAL) Blood Gas Venous ([facility]) (07/07/2022 7:10 AM EDT) pH, Venous 7.42 7.32 - 7.42 [facility] PCO2, Venous 39(L) 41 - 51 mmHg [facility] PO2, Venous 58(H) 25 - 40 mmHg [facility] Bicarbonate, Venous 24.5 mmol/L [facility] Base Excess, Venous 0.0 mmol/L [facility] Hgb Blood Gas 8.8(L) 11.7 - 15.5 g/dL [facility] Oxyhemoglobin, Venous 89.6 % [facility] Carboxyhemoglob in, Venous 0.3 % [facility] Comment: Nonsmokers: 0.5-1.5% COHB Smokers: Variable, but usually less than 10% Toxic: 20-30% COHB Lethal: Greater than 60% COHB Methemoglobin, Venous 0.1 <=1.5 % [facility] Na Whole Blood 138 135 - 145 mmol/L [facility] K Whole Blood 3.6 3.5 - 5.0 mmol/L [facility] Comment: Please note: Patients with WBC >100,000 may have falsely elevated Potassium levels. Contact the Clinical Chemistry Laboratory if there are any questions. ICa Whole Blood 1.16 1.15 - 1.33 mmol/L [facility] Comment: Note: ??Total bilirubin higher than 20 mg/dL may lead to falsely low ionized calcium. CL Whole Blood 109(H) 98 - 107 mmol/L [facility] Gluc Whole Bld 89 65 - 199 mg/dL [facility] Comment:Diabetes: >=200 mg/d L plus symptoms Lactate WB 1.3 0.5 - 2.2 mmol/L [facility] Blood Gas Source Venous [facility] Blood Venous Draw / Unknown 07/07/2022 7:10 AM EDT 07/07/2022 7:18 AM EDT Narrative Resulting Agency Comment Spec In Lab Mayank Kang MD CHEMISTRY ORDERABLES Performing Organization Address City/[facility] Co de Phone Number [facility] [place] [address] * Scan, Peripheral Blood (07/07/2022 3:41 AM EDT) Plat estimate Normal [facility] RBC Morphology Abnormal [facility] Macrocyte 1-5 /HPF [facility] Microcyte 6-10 /HPF [facility] Hypochromia Slight [facility] Ovalocytes 1-5 /HPF [facility] Plat, Giant Less than 1 /HPF [facility] Blood 07/07/2022 3:41 AM EDT 07/07/2022 3:46 AM EDT Narrative Resulting Agency Comment Spec In Lab Hollie Perez MD HEMATOLOGY ORDERABL ES Performing Organization Address City/[facility]/[place] [address] * (ABNORMAL) Differential, Automated (07/07/2022 3:41 AM EDT) Pathologist [facility] Neutrophil % 40.9 % [facility] Neutrophil Absolute 1.54(L) 1.70 - 6.10 x10(3)/ L [facility] Lymph % 49.7 % [facility] Lymphocytes Abs 1.9 0.9 - 3.2 x10(3)/ L [facility] Monocyte % 6.3 % [facility] Monocyte Abs 0.2(L) 0.3 - 0.9 x10(3)/ L [facility] Eos % 2.1 % [facility] Eosinophils Abs 0.1 0.0 - 0.4 x10(3)/[facility] Basophil % 0.5 % [facility] Baso Absolute 0.0 0.0 - 0.1 x10(3)/[facility] Immature Gran % 0.50 % [facility] Comment: Immature granulocytes(IG's)percentage and absolute count will include metamyelocytes, myelocytes, and promyelocytes. Blood smears from CBCs yielding IG's will be scanned manually for concordance. If this scan disagrees with the automated IG or if promyelocytes are noted, a manual differential will be performed. Immature Gran Absolute 0.02 0.00 - 0.04 x10(3)/ L [facility] Blood 07/07/2022 3:41 AM EDT 07/07/2022 3:46 AM EDT Narrative Resulting Agency Comment Spec In Lab Hollie Perez MD [place] [address] * (ABNORMAL) Hemogram (07/07/2022 3:41 AM EDT) White Blood Cell 3.8(L) 4.0 - 9.5 x10(3)/ L [facility] Red Blood Cell 3.13(L) 4.00 - 5.21 x10(6)/ L [facility] Hemoglobin 7.6(L) 11.7 - 15.5 g/dL [facility] Hematocrit 25.5(L) 35.7 - 45.8 % [facility] Mean Cell Volume 81.5(L) 82.6 - 94.4 fL [facility] Mean Cell Hemoglobin 24.3(L) 27.1 - 32.0 pg [facility] Mean Cell Hemoglobin Concentration 29.8(L) 31.7 - 35.0 g/dL [facility] Platelet 281 145 - 357 x10(3)/mc L [facility] RDW Standard Deviation 56.9(H) 37.0 - 46.0 fL [facility] RDW coefficient of variation 19.5(H) 11.5 - 14.1 % [facility] Mean Platelet Volume 9.5 7.6 - 12.9 fL [facility] NRBC% auto 0.0 % [facility] NRBC Absolute 0.000 0.000 - 0.000 x10(3)/ L [facility] Blood 07/07/2022 3:41 AM EDT 07/07/2022 3:46 AM EDT Narrative Resulting Agency Comment Spec In Lab Hollie Perez MD HEMATOLOGY ORDERABL ES [facility] [place] [address] * (ABNORMAL) Basic Metabolic Panel (non-fasting) (07/07/2022 3:41 AM EDT) Glucose 90 65 - 199 mg/dL [facility] Comment:Diabetes: >=200 mg/d L plus symptoms Blood Urea Nitrogen 5(L) 8 - 18 mg/dL [facility] Creatinine 0.23(L) 0.70 - 1.20 mg/dL [facility] Sodium 141 135 - 145 mmol/L [facility] Potassium 3.7 3.5 - 5.0 mmol/L [facility] Comment: Please note: ??Patients with WBC >100,000 may have falsely elevated Potassium levels. ??For accurate Potassium quantification in these patients send serum separator tube (gold top) for subsequent determinations. ??Contact the Clinical Chemistry Laboratory if there are any questions. Chloride 110(H) 98 - 107 mmol/L [facility] Carbon Dioxide 23 22 - 31 mmol/L [facility] Anion Gap 8 5 - 15 mmol/L [facility] Calcium 8.3(L) 8.5 - 10.5 mg/dL [facility] Est Glomerular Filtration Rate 157 >=60 mL/min/1. 73 m?? [facility] Comment: This patient's estimated GFR was [...] MD CHEMISTRY ORDERABLE S Performing Organization Address [facility] Co de Phone Number [facility] [place] [address] * Blood culture (07/07/2022 3:41 AM EDT) Blood Culture No growth at 5 days. [facility] Blood 07/07/2022 3:41 AM EDT 07/07/2022 4:59 AM EDT Comment:L hand Narrative Resulting Agency Comment Spec In Lab Hollie Perez MD MICROBIOLOGY - BLOO D ORDERABLES Performing Organization Address [facility]/[place] [address] * (ABNORMAL) Hepatic Function Panel (07/07/2022 3:41 AM EDT) Protein, Total 6.0(L) 6.1 - 8.0 g/dL [facility] Albumin 2.9(L) 3.2 - 5.2 g/dL [facility] Aspartate Aminotransferase 20 0 - 30 unit/L [facility] Alanine Aminotransferase 42(H) 0 - 30 unit/L [facility] Alkaline Phosphatase 177(H) 35 - 105 unit/L [facility] Bilirubin, Total <0.2(L) 0.2 - 1.3 mg/dL [facility] Bilirubin, Direct <0.1 0.0 - 0.3 mg/dL [facility] Blood 07/07/2022 3:41 AM EDT 07/07/2022 3:46 AM EDT Narrative Resulting Agency Comment Spec In Lab Hollie Perez MD CHEMISTRY ORDERABLE S Performing Organization Address [facility] Co de Phone Number [facility] [address] * (ABNORMAL) Hemoglobin and Hematocrit, blood (07/06/2022 6:40 PM EDT) Hemoglobin 8.5(L) 11.7 - 15.5 g/dL [facility] Hematocrit 26.4(L) 35.7 - 45.8 % [facility] Blood 07/06/2022 6:40 PM EDT 07/06/2022 6:46 PM EDT Narrative Resulting Agency Comment Spec In Lab Hollie Perez MD HEMATOLOGY ORDERABL ES Performing Organization Address City/[facility]/ZIP Co de Phone Number [facility] [address] * Lactate, whole blood, send to lab [place] [place] (07/06/2022 6:40 PM EDT) Lactate WB 0.6 0.5 - 2.2 mmol/L [facility] Blood 07/06/2022 6:40 PM EDT 07/06/2022 6:46 PM EDT Narrative Resulting Agency Comment Spec In Lab Hollie Perez MD CHEMISTRY ORDERABLE S Performing Organization Address City/[facility]/ZIP Co de Phone Number [facility] [place] [address] * POCT Glucose (07/06/2022 5:36 PM EDT) Glucose, POC 86 65 - 199 mg/dL [facility] Comment: Supplemental ranges: <140 mg/dL before meals <180 mg/dL all other times of the day Blood 07/06/2022 5:36 PM EDT 07/06/2022 5:36 PM EDT Hollie Perez MD POINT OF CARE TEST ORDERABLES Performing Organization Address [facility] Co de Phone Number [facility] [place] [address] * (ABNORMAL) CRP, acute inflammation (07/06/2022 6:21 AM EDT) C-Reactive Protein 54.2(H) <=4.9 mg/L [facility] Blood Venous Draw / Unknown 07/06/2022 6:21 AM EDT 07/06/2022 7:28 AM EDT Narrative Resulting Agency Comment Spec In Lab Hollie Perez MD CHEMISTRY ORDERABLE S Performing Organization Address [facility] Co de Phone Number [facility] [place] [address] * (ABNORMAL) Basic Metabolic Panel (non-fasting) (07/06/2022 6:21 AM EDT) Glucose 80 65 - 199 mg/dL [facility] Comment:Diabetes: >=200 mg/d L plus symptoms Blood Urea Nitrogen 4(L) 8 - 18 mg/dL [facility] Creatinine 0.26(L) 0.70 - 1.20 mg/dL [facility] Sodium 138 135 - 145 mmol/L [facility] Potassium 3.6 3.5 - 5.0 mmol/L [facility] Comment: Please note: ??Patients with WBC >100,000 may have falsely elevated Potassium levels. ??For accurate Potassium quantification in these patients send serum separator tube (gold top) for subsequent determinations. ??Contact the Clinical Chemistry Laboratory if there are any questions. Chloride 104 98 - 107 mmol/L [facility] Carbon Dioxide Not Perf [facility] Comment:Add-on request. Jonah le too old to perform test. Anion Gap Unable to Calculate 5 - 15 mmol/L [facility] Calcium 8.6 8.5 - 10.5 mg/dL [facility] Est Glomerular Filtration Rate 152 >=60 mL/min/1 .73 m?? [facility] Comment: This patient's estimated GFR was [...] Lab Hollie Perez MD CHEMISTRY ORDERABLE S [facility] [place] [address] * Lavender Tube HOLD (07/06/2022 6:21 AM EDT) Lavender Hold Sample in lab. [facility] Blood Venous Draw / Unknown 07/06/2022 6:21 AM EDT 07/06/2022 6:28 AM EDT Hollie Perez MD HEMATOLOGY ORDERABL ES [facility] [place] [address] * (ABNORMAL) Hepatic Function Panel (07/06/2022 6:21 AM EDT) Pathologist Nimo Protein, Total 6.7 6.1 - 8.0 g/dL [facility] Albumin 3.2 3.2 - 5.2 g/dL [facility] Aspartate Aminotransferase 25 0 - 30 unit/L [facility] Alanine Aminotransferase 57(H) 0 - 30 unit/L [facility] Alkaline Phosphatase 199(H) 35 - 105 unit/L [facility] Bilirubin, Total 0.3 0.2 - 1.3 mg/dL [facility] Bilirubin, Direct 0.1 0.0 - 0.3 mg/dL [facility] Blood 07/06/2022 6:21 AM EDT 07/06/2022 6:27 AM EDT Narrative Resulting Agency Comment Spec In Lab Hollie Perez MD CHEMISTRY ORDERABLE S Performing Organization Address [facility] Co de Phone Number [facility] [address] * Blood culture (07/06/2022 6:21 AM EDT) Pathologist [facility] [place] Blood Culture No growth at 5 days. [facility] Blood 07/06/2022 6:21 AM EDT 07/06/2022 11:05 AM EDT Comment:R Hand Narrative Resulting Agency Comment Spec In Lab Hollie Perez MD MICROBIOLOGY - BLOO D ORDERABLES Performing Organization Address [facility] Co de Phone Number [facility] [address] * CT Abdomen & Pelvis w Contrast [...] who have questions please contact the health dog daycare provider that requested your imaging first. ? Electronically signed by: Nathalie Whitaker MD, [facility] ([phone]), at 07/05/2022 5:38 PM Narrative 07/05/2022 5:38 [...] administration of contrast. Administered 66.0 ml of [id number] mg/ml. Oral contrast administered. COMPARISON: CT lumbar [...] patients who have questions please contactthe health dog daycare provider that requested your imaging first. Hollie Perez MD IMG CT ORDERABLES * Scan, Peripheral Blood (07/05/2022 5:31 AM EST) Pathologist [facility] [place] Plat estimate Normal [facility] RBC Morphology Abnormal [facility] Hypochromia Slight [facility] Blood 07/05/2022 5:31 AM EST 07/05/2022 5:43 AM EST Narrative Resulting Agency Comment Spec In Lab Ian Duarte MD HEMATOLOGY CLEO SALDANA [facility] [place] [place] [address] * Bilirubin, Direct (07/05/2022 5:31 AM EST) Pathologist [facility] [place] Bilirubin, Direct 0.1 0.0 - 0.3 mg/dL [facility] [facility] Blood 07/05/2022 5:31 AM EST 07/05/2022 5:43 AM EST Narrative Resulting Agency Comment Spec In Lab Hollie Perez MD CHEMISTRY ORDERABLE S [facility] [place] [address] * (ABNORMAL) Differential, Automated (07/05/2022 5:31 AM EST) Neutrophil % 41.2 % [facility] Neutrophil Absolute 1.39(L) 1.70 - 6.10 x10(3)/mc L [facility] Lymph % 45.4 % [facility] Lymphocytes Abs 1.5 0.9 - 3.2 x10(3)/mc L [facility] Monocyte % 11.6 % [facility] Monocyte Abs 0.4 0.3 - 0.9 x10(3)/mc L [facility] Eos % 0.6 % [facility] Eosinophils Abs 0.0 0.0 - 0.4 x10(3)/mc L [facility] Basophil % 0.6 % [facility] Baso Absolute 0.0 0.0 - 0.1 x10(3)/mc L [facility] Immature Gran % 0.60 % [facility] Comment: Immature granulocytes(IG's)percentage and absolute count will include metamyelocytes, myelocytes, and promyelocytes. Blood smears from CBCs yielding IG's will be scanned manually for concordance. If this scan disagrees with the automated IG or if promyelocytes are noted, a manual differential will be performed. Immature Gran Absolute 0.02 0.00 - 0.04 x10(3)/mc L [facility] Blood 07/05/2022 5:31 AM EST 07/05/2022 5:43 AM EST Narrative Resulting Agency Comment Spec In Lab Ian Duarte MD HEMATOLOGY ORDE LES [facility] [place] [address] * (ABNORMAL) Hemogram (07/05/2022 5:31 AM EST) White Blood Cell 3.4(L) 4.0 - 9.5 x10(3)/mc L [facility] Red Blood Cell 3.20(L) 4.00 - 5.21 x10(6)/mc L [facility] Hemoglobin 7.7(L) 11.7 - 15.5 g/dL [facility] Hematocrit 25.4(L) 35.7 - 45.8 % [facility] Mean Cell Volume 79.4(L) 82.6 - 94.4 fL [facility] Mean Cell Hemoglobin 24.1(L) 27.1 - 32.0 pg [facility] Mean Cell Hemoglobin Concentration 30.3(L) 31.7 - 35.0 g/dL [facility] Platelet 240 145 - 357 x10(3)/mc L [facility] RDW Standard Deviation 56.9(H) 37.0 - 46.0 fL [facility] RDW coefficient of variation 19.7(H) 11.5 - 14.1 % [facility] Mean Platelet Volume 9.5 7.6 - 12.9 fL [facility] NRBC% auto 0.0 % [facility] NRBC Absolute 0.000 0.000 - 0.000 x10(3)/ L [facility] Blood 07/05/2022 5:31 AM EST 07/05/2022 5:43 AM EST Narrative Resulting Agency Comment Spec In Lab Ian Duarte MD HEMATOLOGY CLEO SALDANA Performing Organization Address City/State/[facility] Co de Phone Number [facility] [place] [address] * (ABNORMAL) Comprehensive metabolic panel (non-fasting) (07/05/2022 5:31 AM EST) Glucose 85 65 - 199 mg/dL [facility] Comment:Diabetes: >=200 mg/d L plus symptoms Blood Urea Nitrogen 6(L) 8 - 18 mg/dL [facility] Creatinine 0.29(L) 0.70 - 1.20 mg/dL [facility] Sodium 142 135 - 145 mmol/L [facility] Potassium 3.8 3.5 - 5.0 mmol/L [facility] Comment: Please note: ??Patients with WBC >100,000 may have falsely elevated Potassium levels. ??For accurate Potassium quantification in these patients send serum separator tube (gold top) for subsequent determinations. ??Contact the Clinical Chemistry Laboratory if there are any questions. Chloride 108(H) 98 - 107 mmol/L [facility] Carbon Dioxide 25 22 - 31 mmol/L [facility] Anion Gap 9 5 - 15 mmol/L [facility] Calcium 8.4(L) 8.5 - 10.5 mg/dL [facility] Protein, Total 5.9(L) 6.1 - 8.0 g/dL [facility] Albumin 3.1(L) 3.2 - 5.2 g/dL [facility] Aspartate Aminotransferase 39(H) 0 - 30 unit/L [facility] Alanine Aminotransferase 74(H) 0 - 30 unit/L [facility] Alkaline Phosphatase 209(H) 35 - 105 unit/L [facility] Bilirubin, Total 0.4 0.2 - 1.3 mg/dL [facility] Est Glomerular Filtration Rate 148 >=60 mL/min/1. 73 m?? [facility] Comment: This patient's estimated GFR was [...] Lab Ian Duarte MD CHEMISTRY ORDER MYRANDA [facility] [place] [address] * IR All Drainage Procedures (07/04/2022 4:14 PM EST) Anatomical Region Laterality Modality X-Ray Angiograph y Narrative 07/04/2022 4:52 PM EST Preoperative Diagnosis: re accumulated Lumbar collection by CT, Fevers Postoperative Diagnosis: ?? Same Procedure Performed: Ultrasound and fluoroscopically guided drain placement. Operators: Mich Martino MD, Attending Estimated Blood Loss: Negligible. Fluoroscopy dose: ??Please see [facility] IR technologist record for procedural dose/time. Cefazolin/ [...] dilated over the wire and a 8.5 Belgian drain was advanced over the wire into [...] 6:07 AM EST) Neutrophil % 81.6 % [facility] Neutrophil Absolute 6.79(H) 1.70 - 6.10 x10(3)/mc L [facility] Lymph % 11.8 % [facility] Lymphocytes Abs 1.0 0.9 - 3.2 x10(3)/mc L [facility] Monocyte % 6.3 % [facility] Monocyte Abs 0.5 0.3 - 0.9 x10(3)/mc L [facility] Eos % 0.0 % [facility] Eosinophils Abs 0.0 0.0 - 0.4 x10(3)/mc L [facility] Basophil % 0.1 % [facility] Baso Absolute 0.0 0.0 - 0.1 x10(3)/mc L [facility] Immature Gran % 0.20 % [facility] Comment: Immature granulocytes(IG's)percentage and absolute count will include metamyelocytes, myelocytes, and promyelocytes. Blood smears from CBCs yielding IG's will be scanned manually for concordance. If this scan disagrees with the automated IG or if promyelocytes are noted, a manual differential will be performed. Immature Gran Absolute 0.02 0.00 - 0.04 x10(3)/mc L [facility] Blood 07/04/2022 6:07 AM EST 07/04/2022 6:14 AM EST Narrative Resulting Agency Comment Spec In Lab Ian Duarte MD HEMATOLOGY CLEO SALDANA [facility] [place] [address] * (ABNORMAL) Hemogram (07/04/2022 6:07 AM EST) White Blood Cell 8.3 4.0 - 9.5 x10(3)/mc L [facility] Red Blood Cell 3.38(L) 4.00 - 5.21 x10(6)/mc L [facility] Hemoglobin 8.3(L) 11.7 - 15.5 g/dL [facility] Hematocrit 26.0(L) 35.7 - 45.8 % [facility] Mean Cell Volume 76.9(L) 82.6 - 94.4 fL [facility] Mean Cell Hemoglobin 24.6(L) 27.1 - 32.0 pg [facility] Mean Cell Hemoglobin Concentration 31.9 31.7 - 35.0 g/dL [facility] Platelet 244 145 - 357 x10(3)/mc L [facility] RDW Standard Deviation 54.5(H) 37.0 - 46.0 fL [facility] RDW coefficient of variation 19.5(H) 11.5 - 14.1 % [facility] Mean Platelet Volume 9.3 7.6 - 12.9 fL [facility] NRBC% auto 0.0 % [facility] NRBC Absolute 0.000 0.000 - 0.000 x10(3)/mc L [facility] Blood 07/04/2022 6:07 AM EST 07/04/2022 6:14 AM EST Narrative Resulting Agency Comment Spec In Lab Ian Duarte MD HEMATOLOGY CLEO SALDANA Performing Organization Address [facility] Co de Phone Number [facility] [place] [address] * Lactate, whole blood, send to lab [place] [place] (07/04/2022 6:07 AM EST) Lactate WB 1.9 0.5 - 2.2 mmol/L [facility] Blood 07/04/2022 6:07 AM EST 07/04/2022 6:14 AM EST Narrative Resulting Agency Comment Spec In Lab Yury Saavedra MD CHEMISTRY ORDERABLE S Performing Organization Address City/[facility]/ZIP Co de Phone Number [facility] [place] [address] * (ABNORMAL) Basic Metabolic Panel (non-fasting) (07/04/2022 6:07 AM EST) Glucose 114 65 - 199 mg/dL [facility] Comment:Diabetes: >=200 mg/d L plus symptoms Blood Urea Nitrogen 8 8 - 18 mg/dL [facility] Creatinine 0.34(L) 0.70 - 1.20 mg/dL [facility] Sodium 134(L) 135 - 145 mmol/L [facility] Potassium 4.1 3.5 - 5.0 mmol/L [facility] Comment: Please note: ??Patients with WBC >100,000 may have falsely elevated Potassium levels. ??For accurate Potassium quantification in these patients send serum separator tube (gold top) for subsequent determinations. ??Contact the Clinical Chemistry Laboratory if there are any questions. Chloride 100 98 - 107 mmol/L [facility] Carbon Dioxide 24 22 - 31 mmol/L [facility] Anion Gap 10 5 - 15 mmol/L [facility] Calcium 8.4(L) 8.5 - 10.5 mg/dL [facility] Est Glomerular Filtration Rate 143 >=60 mL/min/1. 73 m?? [facility] Comment: This patient's estimated GFR was [...] Lab Ian Duarte MD CHEMISTRY ORDER MYRANDA [facility] [place] [address] * (ABNORMAL) Urinalysis Microscopic Exam (07/04/2022 3:05 AM EST) RBC, Urine 2 0 - 4 /HPF [facility] WBC, Urine 2 0 - 5 /HPF [facility] Squamous Epithelial Cells Raw Data, Urine 6(H) <=4 /HPF [facility] Triple Phosphate Crystal, Urine Occasional (A) None /HPF [facility] Clean Catch Urine 07/04/2022 3:05 AM EST 07/04/2022 3:10 AM EST Narrative Resulting Agency Comment Spec In Lab Yury Saavedra MD URINE ORDERABLES [facility] [place] [address] * (ABNORMAL) Urinalysis with reflex Culture (07/04/2022 3:05 AM EST) Glucose, Urine Dipstick Negative Negative mg/dL [facility] Protein, Urine Dipstick 30(A) Negative mg/dL [facility] Bilirubin, Urine Dipstick Negative Negative mg/dL [facility] Comment: Clinical correlation required for positive Urine Bilirubin results as false positive may occur with some drugs and drug related products. If a false positive is suspected a serum total bilirubin should be considered if clinically indicated. Urobilinogen, Urine Dipstick Normal Normal mg/dL [facility] pH, Urn (dipstick) 8.0 5.0 - 8.0 [facility] Blood, Urine Dipstick Negative Negative mg/dL [facility] Ketone, Urine Dipstick Negative Negative mg/dL [facility] Nitrite, Urine Dipstick Negative Negative [facility] Leukocytes, Urine Dipstick Trace(A) Negative [facility] Appearance, Urine Dipstick Cloudy(A) Clear [facility] Specific [place] Urine Automated >=1.030(A) 1.005 - 1.030 [facility] Color, Urine Dipstick Dark Yellow Yellow [facility] Reflex to Culture No [facility] Clean Catch Urine 07/04/2022 3:05 AM EST 07/04/2022 3:10 AM EST Narrative Resulting Agency Comment Spec In Lab Yuyr Saavedra MD URINE ORDERABLES Performing Organization Address City/[facility]/ZIP Co de Phone Number [facility] [place] [address] * (ABNORMAL) Lactate, whole blood, send to lab [place] [place] (07/04/2022 12:50 AM EST) Lactate WB 2.6(H) 0.5 - 2.2 mmol/L [facility] Blood 07/04/2022 12:5 0 AM EST 07/04/2022 1:02 AM EST Narrative Resulting Agency Comment Spec In Lab Yury Saavedra MD CHEMISTRY ORDERABLE S Performing Organization Address [facility] Co de Phone Number [facility] [place] [address] * EKG 12 Lead (07/04/2022 12:16 AM EST) Ventricular rate 152 BPM MUSE SYSTEM Atrial Rate 152 BPM MUSE SYSTEM P-R Interval 112 ms MUSE SYSTEM QRS Duration 66 ms M[facility] SYSTEM Q-T Interval 328 ms M[facility] SYSTEM QTC Calculated (Bezet) 521 ms MUSE SYSTEM Calculated P [place] 13 degrees MUSE SYSTEM Calculated R [place] 7 degrees MUSE SYSTEM Calculated T [place] 54 degrees M[facility] SYSTEM INTERPRETATION Sinus tachycardia Nonspecific T wave abnormality Abnormal ECG When compared with ECG of 01-JUL-2022 14:17, No significant change was found I personally reviewed the tracing and edited the fellows interpretation Confirmed by fellow Ravinder Garcia ([id number]) on 07/07/2022 4:08:27 AM Confirmed by MD CONTRERAS SALVATORE ([id number]) on 07/07/2022 10:33:36 AM MUSE SYSTEM 07/04/2022 12:1 6 AM EST 07/07/2022 10:33 AM EDT Yury Saavedra MD ECG ORDERABLES Performing Organization Address City/[facility]/ZIP Co de Phone Number MUSE SYSTEM * Lavender Tube HOLD (07/03/2022 11:05 PM EST) Lavender Hold Sample in lab. [facility] Blood Venous Draw / Unknown 07/03/2022 11:05 PM EST 07/03/2022 11:14 PM EST Yury Saavedra MD HEMATOLOGY ORDERABL ES Performing Organization Address City/[facility]/ZIP Co de Phone Number [facility] [address] * (ABNORMAL) CRP, acute inflammation (07/03/2022 11:05 PM EST) C-Reactive Protein 73.7(H) <=4.9 mg/L [facility] Blood 07/03/2022 11:0 5 PM EST 07/03/2022 11:14 PM EST Narrative Resulting Agency Comment Spec In Lab Yury Saavedra MD CHEMISTRY ORDERABLE S Performing Organization Address [facility] Co de Phone Number [facility] [address] * (ABNORMAL) Blood culture (07/03/2022 11:05 PM EST) Blood Culture Escherichia coli detected by PCR Isolate saved. If future testing is required, contact the Microbiology Teller Supervisor. (A) [facility] Gram Stain Anaerobic Growth detected in anaerobic bottle. Gram Negative Rods seen Results called to and read back by Zoila Rincon RN (A) [facility] Organism Escherichia coli(A) [facility] Organism Gram Negative Rods(A) [facility] Blood STRUCTURE OF RIGHT HAND / [...] Performing Organization Address City/[facility] Co de Phone Number [facility] [place] [address] * Blood culture (07/03/2022 10:45 PM EST) Blood Culture No growth at 5 days. [facility] Blood STRUCTURE OF LEFT HAND / Unknown 07/03/2022 10:45 PM EST 07/04/2022 Narrative Resulting Agency Comment Spec In Lab Yury Saavedra MD MICROBIOLOGY - BLOO D ORDERABLES Performing Organization Address [facility] Co de Phone Number [facility] [place] [address] * CT Lumbar Spine w Contrast (07/03/2022 [...] who have questions please contact the health dog daycare provider that requested your imaging first. ? [...] patients who have questions please contactthe health dog daycare provider that requested your imaging first. Ian Duarte MD [facility] CT ORDERABL ES * (ABNORMAL) Differential, Automated (07/03/2022 10:08 AM EST) Neutrophil % 50.0 % [facility] Neutrophil Absolute 1.61(L) 1.70 - 6.10 x10(3)/mc L [facility] Lymph % 37.0 % [facility] Lymphocytes Abs 1.2 0.9 - 3.2 x10(3)/mc L [facility] Monocyte % 10.9 % [facility] Monocyte Abs 0.4 0.3 - 0.9 x10(3)/mc L [facility] Eos % 0.9 % [facility] Eosinophils Abs 0.0 0.0 - 0.4 x10(3)/mc L [facility] Basophil % 0.9 % [facility] Baso Absolute 0.0 0.0 - 0.1 x10(3)/mc L [facility] Immature Gran % 0.30 % [facility] Comment: Immature granulocytes(IG's)percentage and absolute count will include metamyelocytes, myelocytes, and promyelocytes. Blood smears from CBCs yielding IG's will be scanned manually for concordance. If this scan disagrees with the automated IG or if promyelocytes are noted, a manual differential will be performed. Immature Gran Absolute 0.01 0.00 - 0.04 x10(3)/mc L [facility] Blood 07/03/2022 10:0 8 AM EST 07/03/2022 10:19 AM EST Narrative Resulting Agency Comment Spec In Lab Ian Duarte MD HEMATOLOGY CLEO SALDANA Performing Organization Address City/State/[facility] Co de Phone Number [facility] [place] [address] * (ABNORMAL) Hemogram (07/03/2022 10:08 AM EST) White Blood Cell 3.2(L) 4.0 - 9.5 x10(3)/mc L [facility] Red Blood Cell 4.08 4.00 - 5.21 x10(6)/mc L [facility] Hemoglobin 9.9(L) 11.7 - 15.5 g/dL [facility] Hematocrit 32.2(L) 35.7 - 45.8 % [facility] Mean Cell Volume 78.9(L) 82.6 - 94.4 fL [facility] Mean Cell Hemoglobin 24.3(L) 27.1 - 32.0 pg [facility] Mean Cell Hemoglobin Concentration 30.7(L) 31.7 - 35.0 g/dL [facility] Platelet 307 145 - 357 x10(3)/mc L [facility] RDW Standard Deviation 53.3(H) 37.0 - 46.0 fL [facility] RDW coefficient of variation 19.0(H) 11.5 - 14.1 % [facility] Mean Platelet Volume 9.2 7.6 - 12.9 fL [facility] NRBC% auto 0.0 % [facility] NRBC Absolute 0.000 0.000 - 0.000 x10(3)/mc L [facility] Blood 07/03/2022 10:0 8 AM EST 07/03/2022 10:19 AM EST Narrative Resulting Agency Comment Spec In Lab Ian Duarte MD HEMATOLOGY ORDArthur SALDANA Performing Organization Address [facility] Co de Phone Number [facility] [place] [address] * (ABNORMAL) Sedimentation rate (07/03/2022 10:08 AM EST) Sedimentation Rate Automated 110(H) 2 - 37 mm/hr [facility] Comment: Effective April 06, 2019 new capillary photometric technology has resulted in a change in reference ranges. It is recommended that each ESR result be reviewed with its own age appropriate reference range. Blood 07/03/2022 10:0 8 AM EST 07/03/2022 10:19 AM EST Narrative Resulting Agency Comment Spec In Lab Ian Duarte MD HEMATOLOGY ORDArthur SALDANA Performing Organization Address [facility] Co de Phone Number [facility] [place] [address] * XR Chest One View (07/02/2022 5:04 [...] who have questions please contact the health dog daycare provider that requested your imaging first. ? [...] patients who have questions please contactthe health dog daycare provider that requested your imaging first. Ian Duarte MD IMG DX ORDERABL ES * (ABNORMAL) Urinalysis Microscopic Exam (07/02/2022 3:35 PM EST) RBC, Urine 7(H) 0 - 4 /HPF [facility] WBC, Urine 3 0 - 5 /HPF [facility] Squamous Epithelial Cells Raw Data, Urine 4 <=4 /HPF [facility] Hyaline Casts, Urine 3(H) 0 - 2 /LPF [facility] Straight Catheter Urine 07/02/2022 3:35 PM EST 07/02/2022 4:10 PM EST Narrative Resulting Agency Comment Spec In Lab Ian Duarte MD URINE ORDERABLE S Performing Organization Address [facility] Co de Phone Number [facility] [place] [address] * (ABNORMAL) Urinalysis with reflex Culture (07/02/2022 3:35 PM EST) Glucose, Urine Dipstick Negative Negative mg/dL [facility] Protein, Urine Dipstick Negative Negative mg/dL [facility] Bilirubin, Urine Dipstick Negative Negative mg/dL [facility] Comment: Clinical correlation required for positive Urine Bilirubin results as false positive may occur with some drugs and drug related products. If a false positive is suspected a serum total bilirubin should be considered if clinically indicated. Urobilinogen, Urine Dipstick Normal Normal mg/dL [facility] pH, Urn (dipstick) 7.5 5.0 - 8.0 [facility] Blood, Urine Dipstick Trace(A) Negative mg/dL [facility] Ketone, Urine Dipstick Negative Negative mg/dL [facility] Nitrite, Urine Dipstick Negative Negative [facility] Leukocytes, Urine Dipstick Negative Negative mcL [facility] Appearance, Urine Dipstick Clear Clear [facility] Specific [place] Urine Automated 1.016 1.005 - 1.030 [facility] Color, Urine Dipstick Yellow Yellow [facility] Reflex to Culture No [facility] Straight Catheter Urine 07/02/2022 3:35 PM EST 07/02/2022 4:10 PM EST Narrative Resulting Agency Comment Spec In Lab Ian Duarte MD URINE ORDERABLE S Performing Organization Address [facility]/ZIP Co de Phone Number [facility] [place] [address] * Differential, Automated (07/02/2022 6:15 AM EST) [facility] Neutrophil % 57.6 % [facility] Neutrophil Absolute 1.89 1.70 - 6.10 x10(3)/[facility] Lymph % 32.3 % [facility] Lymphocytes Abs 1.1 0.9 - 3.2 x10(3)/[facility] Monocyte % 9.5 % [facility] Monocyte Abs 0.3 0.3 - 0.9 x10(3)/[facility] Eos % 0.0 % [facility] Eosinophils Abs 0.0 0.0 - 0.4 x10(3)/[facility] Basophil % 0.3 % [facility] Baso Absolute 0.0 0.0 - 0.1 x10(3)/[facility] Immature Gran % 0.30 % [facility] Comment: Immature granulocytes(IG's)percentage and absolute count will include metamyelocytes, myelocytes, and promyelocytes. Blood smears from CBCs yielding IG's will be scanned manually for concordance. If this scan disagrees with the automated IG or if promyelocytes are noted, a manual differential will be performed. Immature Gran Absolute 0.01 0.00 - 0.04 x10(3)/[facility] Blood 07/02/2022 6:15 AM EST 07/02/2022 6:49 AM EST Narrative Resulting Agency Comment Spec In Lab Ian Duarte MD HEMATOLOGY CLEO SALDANA [facility] [place] [address] * (ABNORMAL) Hemogram (07/02/2022 6:15 AM EST) [facility] White Blood Cell 3.3(L) 4.0 - 9.5 x10(3)/mc L [facility] Red Blood Cell 3.98(L) 4.00 - 5.21 x10(6)/[facility] Hemoglobin 9.6(L) 11.7 - 15.5 g/dL [facility] Hematocrit 30.7(L) 35.7 - 45.8 % [facility] Mean Cell Volume 77.1(L) 82.6 - 94.4 fL [facility] Mean Cell Hemoglobin 24.1(L) 27.1 - 32.0 pg [facility] Mean Cell Hemoglobin Concentration 31.3(L) 31.7 - 35.0 g/dL [facility] Platelet 336 145 - 357 x10(3)/mc L [facility] RDW Standard Deviation 51.1(H) 37.0 - 46.0 fL [facility] RDW coefficient of variation 18.6(H) 11.5 - 14.1 % [facility] Mean Platelet Volume 9.1 7.6 - 12.9 fL [facility] NRBC% auto 0.0 % [facility] NRBC Absolute 0.000 0.000 - 0.000 x10(3)/mc L [facility] Blood 07/02/2022 6:15 AM EST 07/02/2022 6:49 AM EST Narrative Resulting Agency Comment Spec In Lab Ian Duarte MD HEMATOLOGY ORDE LES Performing Organization Address City/[facility] Co de Phone Number [facility] [place] [address] * TSH Thomas (07/02/2022 6:15 AM EST) Thyroid Stimulating Hormone 1.45 0.27 - 4.20 mcIU/mL [facility] Comment: Reference Interval (mcIU/mL): Females: ??First Trimester: 0.23-3.88 ??Second Trimester: 0.22-3.90 ??Third Trimester: 0.44-4.66 Blood 07/02/2022 6:15 AM EST 07/02/2022 6:49 AM EST Narrative Resulting Agency Comment Spec In Lab Ian Duarte MD CHEMISTRY ORDER MYRANDA Performing Organization Address City/[facility]/ZIP Co de Phone Number [facility] [place] [address] * (ABNORMAL) Basic Metabolic Panel (non-fasting) (07/02/2022 6:15 AM EST) Glucose 91 65 - 199 mg/dL [facility] Comment:Diabetes: >=200 mg/d L plus symptoms Blood Urea Nitrogen 5(L) 8 - 18 mg/dL [facility] Creatinine 0.24(L) 0.70 - 1.20 mg/dL [facility] Sodium 134(L) 135 - 145 mmol/L [facility] Potassium 4.0 3.5 - 5.0 mmol/L [facility] Comment: Please note: ??Patients with WBC >100,000 may have falsely elevated Potassium levels. ??For accurate Potassium quantification in these patients send serum separator tube (gold top) for subsequent determinations. ??Contact the Clinical Chemistry Laboratory if there are any questions. Chloride 100 98 - 107 mmol/L [facility] Carbon Dioxide 24 22 - 31 mmol/L [facility] Anion Gap 10 5 - 15 mmol/L [facility] Calcium 8.7 8.5 - 10.5 mg/dL [facility] Est Glomerular Filtration Rate 155 >=60 mL/min/1. 73 m?? [facility] Comment: This patient's estimated GFR was [...] Lab Ian Duarte MD CHEMISTRY ORDER MYRANDA [facility] [place] [address] * (ABNORMAL) Sedimentation rate (07/02/2022 6:15 AM EST) Sedimentation Rate Automated 89(H) 2 - 37 mm/hr [facility] Comment: Effective April 06, 2019 new capillary photometric technology has resulted in a change in reference ranges. It is recommended that each ESR result be reviewed with its own age appropriate reference range. Blood 07/02/2022 6:15 AM EST 07/02/2022 6:49 AM EST Narrative Resulting Agency Comment Spec In Lab Ian Duarte MD HEMATOLOGY ORDE RABLES [facility] [place] [address] * Blood culture (07/01/2022 8:21 PM EST) Pathologist [facility] Blood Culture No growth at 5 days. [facility] Blood 07/01/2022 8:21 PM EST 07/01/2022 8:57 PM EST Comment:RH Narrative Resulting Agency Comment Spec In Lab Ian Duarte MD MICROBIOLOGY - BLOOD ORDERABLES Performing Organization Address City/[facility]/ZIP Co de Phone Number [facility] [place] [address] * Magnesium (07/01/2022 6:14 PM EST) Pathologist [facility] Magnesium 0.74 0.69 - 1.07 mmol/L [facility] Blood 07/01/2022 6:14 PM EST 07/01/2022 6:21 PM EST Narrative Resulting Agency Comment Spec In Lab Ian Duarte MD CHEMISTRY ORDER MYRANDA Performing Organization Address City/[facility]/ZIP Co de Phone Number [facility] [place] [address] * Lactate, whole blood, send to lab ([facility] (07/01/2022 6:14 PM EST) Pathologist [facility] Lactate WB 1.7 0.5 - 2.2 mmol/L [facility] Blood 07/01/2022 6:14 PM EST 07/01/2022 6:21 PM EST Narrative Resulting Agency Comment Spec In Lab Ian Duarte MD CHEMISTRY ORDER MYRANDA [facility] [place] [address] * IR Drain Check/Change/Remove (07/01/2022 3:35 PM [...] sterile barrier technique was used throughout. ?? Breakfast Server fluoroscopic images were obtained. ??Contrast was injected [...] (Bezet) 443 ms MUSE SYSTEM Calculated P [place] 37 degrees MUSE SYSTEM Calculated R [place] 62 degrees MUSE SYSTEM Calculated T [place] 19 degrees MUSE SYSTEM INTERPRETATION Sinus tachycardia Nonspecific T wave abnormality Otherwise normal ECG When compared with ECG of 29-JUN-2022 08:55, No significant change was found Confirmed by Lyndon Lafleur ([id number]) on 07/02/2022 5:10:53 PM MUSE SYSTEM 07/01/2022 2:17 PM EST 07/02/2022 5:10 PM EST Ian Duarte MD ECG ORDERABLES MUSE SYSTEM * Differential, Automated (07/01/2022 5:50 AM EST) Neutrophil % 75.5 % [facility] Neutrophil Absolute 4.41 1.70 - 6.10 x10(3)/[facility] Lymph % 15.0 % [facility] Lymphocytes Abs 0.9 0.9 - 3.2 x10(3)/[facility] Monocyte % 7.7 % [facility] Monocyte Abs 0.4 0.3 - 0.9 x10(3)/[facility] Eos % 1.0 % [facility] Eosinophils Abs 0.1 0.0 - 0.4 x10(3)/[facility] Basophil % 0.5 % [facility] Baso Absolute 0.0 0.0 - 0.1 x10(3)/[facility] Immature Gran % 0.30 % [facility] Comment: Immature granulocytes(IG's)percentage and absolute count will include metamyelocytes, myelocytes, and promyelocytes. Blood smears from CBCs yielding IG's will be scanned manually for concordance. If this scan disagrees with the automated IG or if promyelocytes are noted, a manual differential will be performed. Immature Gran Absolute 0.02 0.00 - 0.04 x10(3)/[facility] Blood 07/01/2022 5:50 AM EST 07/01/2022 6:17 AM EST Narrative Resulting Agency Comment Spec In Lab Estevan Alfaro MD HEMATOLOGY ORDERABLE S [facility] [place] [address] * (ABNORMAL) Hemogram (07/01/2022 5:50 AM EST) White Blood Cell 5.8 4.0 - 9.5 x10(3)/mc L [facility] Red Blood Cell 3.84(L) 4.00 - 5.21 x10(6)/mc L [facility] Hemoglobin 9.3(L) 11.7 - 15.5 g/dL [facility] Hematocrit 29.6(L) 35.7 - 45.8 % [facility] Mean Cell Volume 77.1(L) 82.6 - 94.4 fL [facility] Mean Cell Hemoglobin 24.2(L) 27.1 - 32.0 pg [facility] Mean Cell Hemoglobin Concentration 31.4(L) 31.7 - 35.0 g/dL [facility] Platelet 352 145 - 357 x10(3)/mc L [facility] RDW Standard Deviation 51.2(H) 37.0 - 46.0 fL [facility] RDW coefficient of variation 18.6(H) 11.5 - 14.1 % [facility] Mean Platelet Volume 9.3 7.6 - 12.9 fL [facility] NRBC% auto 0.0 % [facility] NRBC Absolute 0.000 0.000 - 0.000 x10(3)/mc L [facility] Blood 07/01/2022 5:50 AM EST 07/01/2022 6:17 AM EST Narrative Resulting Agency Comment Spec In Lab Estevan Alfaro MD HEMATOLOGY ORDERABLE S Performing Organization Address [facility] Co de Phone Number [facility] [place] [address] * (ABNORMAL) CRP, acute inflammation (07/01/2022 5:50 AM EST) C-Reactive Protein 53.1(H) <=4.9 mg/L [facility] Comment:result rechecked-KS Blood 07/01/2022 5:50 AM EST 07/01/2022 6:17 AM EST Narrative Resulting Agency Comment Spec In Lab Ian Duarte MD CHEMISTRY ORDER MYRANDA Performing Organization Address [facility] Co de Phone Number [facility] [place] [address] * (ABNORMAL) Sedimentation rate (07/01/2022 5:50 AM EST) Sedimentation Rate Automated >119(H) 2 - 37 mm/hr [facility] Comment: Effective April 06, 2019 new capillary photometric technology has resulted in a change in reference ranges. It is recommended that each ESR result be reviewed with its own age appropriate reference range. Blood 07/01/2022 5:50 AM EST 07/01/2022 6:17 AM EST Narrative Resulting Agency Comment Spec In Lab Ian Duarte MD HEMATOLOGY ORDE RABLES Performing Organization Address City/[facility]/ZIP Co de Phone Number [facility] [place] [address] * (ABNORMAL) BMP w/fasting Glucose (07/01/2022 5:50 AM EST) [facility] Signature Glucose Fasting 95 65 - 99 mg/dL [facility] Comment: ?Fasting* Glucose Interpretive Criteria Normal [...] of Diabetes Mellitus, Position Statement from the [employer] [employer]. ??Diabetes Care, Volume 33, Supplement 1, Apr 2009 Blood Urea Nitrogen 10 8 - 18 mg/dL [facility] Creatinine 0.25(L) 0.70 - 1.20 mg/dL [facility] Sodium 138 135 - 145 mmol/L [facility] Potassium 4.1 3.5 - 5.0 mmol/L [facility] Comment: Please note: ??Patients with WBC >100,000 may have falsely elevated Potassium levels. ??For accurate Potassium quantification in these patients send serum separator tube (gold top) for subsequent determinations. ??Contact the Clinical Chemistry Laboratory if there are any questions. Chloride 103 98 - 107 mmol/L [facility] Carbon Dioxide 24 22 - 31 mmol/L [facility] Anion Gap 11 5 - 15 mmol/L [facility] Calcium 9.0 8.5 - 10.5 mg/dL [facility] Est Glomerular Filtration Rate 154 >=60 mL/min/1. 73 m?? [facility] Comment: This patient's estimated GFR was [...] Performing Organization Address City/[facility]/[place] [address] * Differential, Automated (06/30/2022 4:29 AM EST) Neutrophil % 57.6 % [facility] Neutrophil Absolute 3.68 1.70 - 6.10 x10(3)/[facility] Lymph % 33.2 % [facility] Lymphocytes Abs 2.1 0.9 - 3.2 x10(3)/[facility] Monocyte % 7.0 % [facility] Monocyte Abs 0.4 0.3 - 0.9 x10(3)/[facility] Eos % 1.4 % [facility] Eosinophils Abs 0.1 0.0 - 0.4 x10(3)/[facility] Basophil % 0.5 % [facility] Baso Absolute 0.0 0.0 - 0.1 x10(3)/[facility] Immature Gran % 0.30 % [facility] Comment: Immature granulocytes(IG's)percentage and absolute count will include metamyelocytes, myelocytes, and promyelocytes. Blood smears from CBCs yielding IG's will be scanned manually for concordance. If this scan disagrees with the automated IG or if promyelocytes are noted, a manual differential will be performed. Immature Gran Absolute 0.02 0.00 - 0.04 x10(3)/[facility] Blood 06/30/2022 4:29 AM EST 06/30/2022 4:51 AM EST Narrative Resulting Agency Comment Spec In Lab Estevan Alfaro MD HEMATOLOGY ORDERABLE S Performing Organization Address City/[facility]/ZIP Co de Phone Number [facility] [place] [address] * (ABNORMAL) Hemogram (06/30/2022 4:29 AM EST) White Blood Cell 6.4 4.0 - 9.5 x10(3)/ L [facility] Red Blood Cell 3.96(L) 4.00 - 5.21 x10(6)/ L [facility] Hemoglobin 9.4(L) 11.7 - 15.5 g/dL [facility] Hematocrit 30.4(L) 35.7 - 45.8 % [facility] Mean Cell Volume 76.8(L) 82.6 - 94.4 fL [facility] Mean Cell Hemoglobin 23.7(L) 27.1 - 32.0 pg [facility] Mean Cell Hemoglobin Concentration 30.9(L) 31.7 - 35.0 g/dL [facility] Platelet 349 145 - 357 x10(3)/ L [facility] RDW Standard Deviation 50.4(H) 37.0 - 46.0 fL [facility] RDW coefficient of variation 18.4(H) 11.5 - 14.1 % [facility] Mean Platelet Volume 9.3 7.6 - 12.9 fL [facility] NRBC% auto 0.0 % [facility] NRBC Absolute 0.000 0.000 - 0.000 x10(3)/ L [facility] Blood 06/30/2022 4:29 AM EST 06/30/2022 4:51 AM EST Narrative Resulting Agency Comment Spec In Lab Estevan Alfaro MD HEMATOLOGY ORDERABLE S [facility] [place] [address] * (ABNORMAL) BMP w/fasting Glucose (06/30/2022 4:29 AM EST) Glucose Fasting 86 65 - 99 mg/dL [facility] Comment: ?Fasting* Glucose Interpretive Criteria Normal [...] of Diabetes Mellitus, Position Statement from the [employer]. ??Diabetes Care, Volume 33, Supplement 1, Apr 2009 Blood Urea Nitrogen 11 8 - 18 mg/dL [facility] Creatinine 0.22(L) 0.70 - 1.20 mg/dL [facility] Sodium 142 135 - 145 mmol/L [facility] Potassium 3.7 3.5 - 5.0 mmol/L [facility] Comment: Please note: ??Patients with WBC >100,000 may have falsely elevated Potassium levels. ??For accurate Potassium quantification in these patients send serum separator tube (gold top) for subsequent determinations. ??Contact the Clinical Chemistry Laboratory if there are any questions. Chloride 105 98 - 107 mmol/L [facility] Carbon Dioxide 25 22 - 31 mmol/L [facility] Anion Gap 12 5 - 15 mmol/L [facility] Calcium 8.9 8.5 - 10.5 mg/dL [facility] Est Glomerular Filtration Rate 159 >=60 mL/min/1. 73 m?? [facility] Comment: This patient's estimated GFR was [...] Performing Organization Address City/[facility]/ZIP Co de Phone Number [facility] [place] [address] * EKG 12 Lead (06/29/2022 8:55 AM EST) Pathologist [facility] Ventricular rate 112 BPM MUSE SYSTEM Atrial Rate 112 BPM MUSE SYSTEM P-R Interval 124 ms MUSE SYSTEM QRS Duration 78 ms MUSE SYSTEM Q-T Interval 336 ms MUSE SYSTEM QTC Calculated (Bezet) 458 ms MUSE SYSTEM Calculated P [place] 22 degrees MUSE SYSTEM Calculated R [place] 8 degrees MUSE SYSTEM Calculated T [place] 69 degrees MUSE SYSTEM INTERPRETATION Sinus tachycardia Nonspecific T wave abnormality Abnormal ECG When compared with ECG of 26-JUN-2022 20:46, Minimal criteria for Inferior infarct are no longer Present Nonspecific T wave abnormality, worse in Lateral leads Confirmed by MD Shabazz Danette ([id number]) on 06/29/2022 9:49:48 PM MUSE SYSTEM 06/29/2022 8:55 AM EST 06/29/2022 9:49 PM EST Estevan Alfaro MD ECG ORDERABLES Performing Organization Address [facility]/ZIP Co de Phone Number MUSE SYSTEM * TSH (06/29/2022 5:58 AM EST) Pathologist [facility] Thyroid Stimulating Hormone 1.84 0.27 - 4.20 mcIU/mL [facility] Comment: Reference Interval (mcIU/mL): Females: ??First Trimester: 0.23-3.88 ??Second Trimester: 0.22-3.90 ??Third Trimester: 0.44-4.66 Blood Venous Draw / Unknown 06/29/2022 5:58 AM EST 06/29/2022 6:10 AM EST Narrative Resulting Agency Comment Spec In Lab Estevan Alfaro MD CHEMISTRY ORDERABLES Performing Organization Address City/[facility]/ZIP Co de Phone Number [facility] [place] [address] * Magnesium (06/29/2022 5:58 AM EST) [facility] Magnesium 0.88 0.69 - 1.07 mmol/L [facility] Blood Venous Draw / Unknown 06/29/2022 5:58 AM EST 06/29/2022 6:10 AM EST Narrative Resulting Agency Comment Spec In Lab Estevan Alfaro MD CHEMISTRY ORDERABLES Performing Organization Address City/[facility]/ZIP Co de Phone Number [facility] [place] [address] * Differential, Automated (06/29/2022 5:58 AM EST) Neutrophil % 61.0 % [facility] Neutrophil Absolute 3.44 1.70 - 6.10 x10(3)/[facility] Lymph % 26.5 % [facility] Lymphocytes Abs 1.5 0.9 - 3.2 x10(3)/[facility] Monocyte % 9.0 % [facility] Monocyte Abs 0.5 0.3 - 0.9 x10(3)/[facility] Eos % 2.1 % [facility] Eosinophils Abs 0.1 0.0 - 0.4 x10(3)/[facility] Basophil % 0.9 % [facility] Baso Absolute 0.0 0.0 - 0.1 x10(3)/[facility] Immature Gran % 0.50 % [facility] Comment: Immature granulocytes(IG's)percentage and absolute count will include metamyelocytes, myelocytes, and promyelocytes. Blood smears from CBCs yielding IG's will be scanned manually for concordance. If this scan disagrees with the automated IG or if promyelocytes are noted, a manual differential will be performed. Immature Gran Absolute 0.03 0.00 - 0.04 x10(3)/[facility] Blood 06/29/2022 5:58 AM EST 06/29/2022 6:06 AM EST Narrative Resulting Agency Comment Spec In Lab Estevan Alfaro MD HEMATOLOGY ORDERABLE S Performing Organization Address City/[facility]/[place] [address] * (ABNORMAL) Hemogram (06/29/2022 5:58 AM EST) White Blood Cell 5.6 4.0 - 9.5 x10(3)/ L [facility] Red Blood Cell 4.11 4.00 - 5.21 x10(6)/mc L [facility] Hemoglobin 9.8(L) 11.7 - 15.5 g/dL [facility] Hematocrit 31.7(L) 35.7 - 45.8 % [facility] Mean Cell Volume 77.1(L) 82.6 - 94.4 fL [facility] Mean Cell Hemoglobin 23.8(L) 27.1 - 32.0 pg [facility] Mean Cell Hemoglobin Concentration 30.9(L) 31.7 - 35.0 g/dL [facility] Platelet 345 145 - 357 x10(3)/mc L [facility] RDW Standard Deviation 50.5(H) 37.0 - 46.0 fL [facility] RDW coefficient of variation 18.3(H) 11.5 - 14.1 % [facility] Mean Platelet Volume 9.2 7.6 - 12.9 fL [facility] NRBC% auto 0.0 % [facility] NRBC Absolute 0.000 0.000 - 0.000 x10(3)/ L [facility] Blood 06/29/2022 5:58 AM EST 06/29/2022 6:06 AM EST Narrative Resulting Agency Comment Spec In Lab Estevan Alfaro MD HEMATOLOGY ORDERABLE S Performing Organization Address City/State/[facility] Co de Phone Number [facility] [place] [address] * (ABNORMAL) BMP w/fasting Glucose (06/29/2022 5:58 AM EST) Glucose Fasting 90 65 - 99 mg/dL [facility] Comment: ?Fasting* Glucose Interpretive Criteria Normal [...] of Diabetes Mellitus, Position Statement from the [employer]. ??Diabetes Care, Volume 33, Supplement 1, Apr 2009 Blood Urea Nitrogen 11 8 - 18 mg/dL [facility] Creatinine 0.25(L) 0.70 - 1.20 mg/dL [facility] Sodium 134(L) 135 - 145 mmol/L [facility] Potassium 4.1 3.5 - 5.0 mmol/L [facility] Comment: Please note: ??Patients with WBC >100,000 may have falsely elevated Potassium levels. ??For accurate Potassium quantification in these patients send serum separator tube (gold top) for subsequent determinations. ??Contact the Clinical Chemistry Laboratory if there are any questions. Chloride 102 98 - 107 mmol/L [facility] Carbon Dioxide 21(L) 22 - 31 mmol/L [facility] Anion Gap 11 5 - 15 mmol/L [facility] Calcium 9.0 8.5 - 10.5 mg/dL [facility] Est Glomerular Filtration Rate 154 >=60 mL/min/1. 73 m?? [facility] Comment: This patient's estimated GFR was [...] In Lab Estevan Alfaro MD CHEMISTRY ORDERABLES [facility] [place] [address] * (ABNORMAL) Respiratory Panel PCR (06/28/2022 2:58 PM EST) Respiratory Panel Source [employer]IAN [employer] [facility] Respiratory Panel PCR Positive(A) Negative [facility] Comment: Respiratory Panels are performed on the [employer], using multiplexed PCR nucleic acid detection. ??Negative results do not preclude respiratory infection and should not be used as the sole basis for diagnosis, treatment or other management decisions. Adenovirus Not Detected Not Detected [facility] Coronavirus HKU1 Not Detected Not Detected [facility] Coronavirus NL63 Not Detected Not Detected [facility] Coronavirus 229E Not Detected Not Detected [facility] Coronavirus OC43 Not Detected Not Detected [facility] SARS-CoV-2 Not Detected Not Detected [facility] Comment: Testing for SARS-CoV-2 (Severe acute respiratory syndrome coronavirus 2) to aid in the diagnosis of COVID-19 is performed using the Positionlye Respiratory Panel 2.1 (ObserveIT) as authorized by the FDA issued Emergency Use Authorization (EUA). This panel also tests for multiple other viral and bacterial pathogens. This assay is intended for In-vitro Diagnostic (IVD) use with nasopharyngeal swabs in viral transport media. The assay is performed based on the instructions for use and additional guidance provided by the FDA. Testing is performed in laboratories within the [facility], each of which is certified under [...] fact sheets at the following FDA website: https://www.fda.gov/medical-devices/dhahbpvmlqq-pmpinxi-7108-jxfrd-92-lvloqscgt- use-a mbqtkljeshimk-dfvwtkp-xabimzh/zwtwb-chgnwytkuqn-ctwq Human Metapneumovirus Not Detected Not Detected [facility] Human Rhinovirus/Enterov irus Not Detected Not Detected [facility] Influenza A Not Detected Not Detected [facility] Influenza B Not Detected Not Detected [facility] Parainfluenza 1 Not Detected Not Detected [facility] Parainfluenza 2 Not Detected Not Detected [facility] Parainfluenza 3 Detected(A) Not Detected [facility] Parainfluenza 4 Not Detected Not Detected [facility] Respiratory Syncytial Virus Not Detected Not Detected [facility] Chlamydophila pneumoniae Not Detected Not Detected [facility] Mycoplasma pneumoniae Not Detected Not Detected [facility] Nasopharyngeal Swab 06/29/19 2:58 PM EST 06/28/2022 4:24 PM EST Narrative Resulting Agency Comment Spec In Lab Estevan Alfaro MD MICROBIOLOGY - GENER AL ORDERABLES [facility] [place] [address] * Differential, Automated (06/28/2022 5:38 AM EST) Neutrophil % 54.1 % [facility] Neutrophil Absolute 3.04 1.70 - 6.10 x10(3)/mcL [facility] Lymph % 34.3 % [facility] Lymphocytes Abs 1.9 0.9 - 3.2 x10(3)/[facility] Monocyte % 8.7 % [facility] Monocyte Abs 0.5 0.3 - 0.9 x10(3)/[facility] Eos % 2.0 % [facility] Eosinophils Abs 0.1 0.0 - 0.4 x10(3)/[facility] Basophil % 0.5 % [facility] Baso Absolute 0.0 0.0 - 0.1 x10(3)/[facility] Immature Gran % 0.40 % [facility] Comment: Immature granulocytes(IG's)percentage and absolute count will include metamyelocytes, myelocytes, and promyelocytes. Blood smears from CBCs yielding IG's will be scanned manually for concordance. If this scan disagrees with the automated IG or if promyelocytes are noted, a manual differential will be performed. Immature Gran Absolute 0.02 0.00 - 0.04 x10(3)/[facility] Blood 06/28/2022 5:38 AM EST 06/28/2022 5:54 AM EST Narrative Resulting Agency Comment Spec In Lab Anurag Call DO HEMATOLOGY ORDERABLE S Performing Organization Address City/State/[facility] Co de Phone Number [facility] [place] [address] * (ABNORMAL) Hemogram (06/28/2022 5:38 AM EST) White Blood Cell 5.6 4.0 - 9.5 x10(3)/mc L [facility] Red Blood Cell 4.08 4.00 - 5.21 x10(6)/mc L [facility] Hemoglobin 9.9(L) 11.7 - 15.5 g/dL [facility] Hematocrit 31.6(L) 35.7 - 45.8 % [facility] Mean Cell Volume 77.5(L) 82.6 - 94.4 fL [facility] Mean Cell Hemoglobin 24.3(L) 27.1 - 32.0 pg [facility] Mean Cell Hemoglobin Concentration 31.3(L) 31.7 - 35.0 g/dL [facility] Platelet 371(H) 145 - 357 x10(3)/mc L [facility] RDW Standard Deviation 50.5(H) 37.0 - 46.0 fL [facility] RDW coefficient of variation 18.2(H) 11.5 - 14.1 % [facility] Mean Platelet Volume 9.3 7.6 - 12.9 fL [facility] NRBC% auto 0.0 % [facility] NRBC Absolute 0.000 0.000 - 0.000 x10(3)/mc L [facility] Blood 06/28/2022 5:38 AM EST 06/28/2022 5:54 AM EST Narrative Resulting Agency Comment Spec In Lab Anurag Call DO HEMATOLOGY ORDERABLE S Performing Organization Address City/[facility] Co de Phone Number [facility] [address] * Magnesium (06/28/2022 5:38 AM EST) Magnesium 0.78 0.69 - 1.07 mmol/L [facility] Blood 06/28/2022 5:38 AM EST 06/28/2022 5:54 AM EST Narrative Resulting Agency Comment Spec In Lab Anurag Call DO CHEMISTRY ORDERABLES Performing Organization Address City/[facility] Co de Phone Number [facility] [address] * (ABNORMAL) Basic Metabolic Panel (non-fasting) (06/28/2022 5:38 AM EST) Glucose 95 65 - 199 mg/dL [facility] Comment:Diabetes: >=200 mg/d L plus symptoms Blood Urea Nitrogen 11 8 - 18 mg/dL [facility] Creatinine 0.27(L) 0.70 - 1.20 mg/dL [facility] Sodium 137 135 - 145 mmol/L [facility] Potassium 4.0 3.5 - 5.0 mmol/L [facility] Comment: Please note: ??Patients with WBC >100,000 may have falsely elevated Potassium levels. ??For accurate Potassium quantification in these patients send serum separator tube (gold top) for subsequent determinations. ??Contact the Clinical Chemistry Laboratory if there are any questions. Chloride 102 98 - 107 mmol/L [facility] Carbon Dioxide 25 22 - 31 mmol/L [facility] Anion Gap 10 5 - 15 mmol/L [facility] Calcium 9.1 8.5 - 10.5 mg/dL [facility] Est Glomerular Filtration Rate 151 >=60 mL/min/1. 73 m?? [facility] Comment: This patient's estimated GFR was [...] Call DO CHEMISTRY ORDERABLES Performing Organization Address [facility] Co de Phone Number [facility] [place] [address] * (ABNORMAL) CRP, acute inflammation (06/28/2022 5:38 AM EST) C-Reactive Protein 53.8(H) <=4.9 mg/L [facility] Blood 06/28/2022 5:38 AM EST 06/28/2022 5:54 AM EST Narrative Resulting Agency Comment Spec In Lab Anurag Call DO CHEMISTRY ORDERABLES Performing Organization Address [facility] Co de Phone Number [facility] [place] [address] * (ABNORMAL) Sedimentation rate (06/28/2022 5:38 AM EST) Sedimentation Rate Automated 113(H) 2 - 37 mm/hr [facility] Comment: Effective April 06, 2019 new capillary photometric technology has resulted in a change in reference ranges. It is recommended that each ESR result be reviewed with its own age appropriate reference range. Blood 06/28/2022 5:38 AM EST 06/28/2022 5:54 AM EST Narrative Resulting Agency Comment Spec In Lab Anurag Call DO HEMATOLOGY ORDERABLE S [facility] [place] [address] * Differential, Automated (06/27/2022 5:58 AM EST) Neutrophil % 50.4 % [facility] Neutrophil Absolute 2.79 1.70 - 6.10 x10(3)/[facility] Lymph % 38.7 % [facility] Lymphocytes Abs 2.1 0.9 - 3.2 x10(3)/[facility] Monocyte % 8.0 % [facility] Monocyte Abs 0.4 0.3 - 0.9 x10(3)/[facility] Eos % 1.8 % [facility] Eosinophils Abs 0.1 0.0 - 0.4 x10(3)/[facility] Basophil % 0.7 % [facility] Baso Absolute 0.0 0.0 - 0.1 x10(3)/[facility] Immature Gran % 0.40 % [facility] Comment: Immature granulocytes(IG's)percentage and absolute count will include metamyelocytes, myelocytes, and promyelocytes. Blood smears from CBCs yielding IG's will be scanned manually for concordance. If this scan disagrees with the automated IG or if promyelocytes are noted, a manual differential will be performed. Immature Gran Absolute 0.02 0.00 - 0.04 x10(3)/[facility] Blood 06/27/2022 5:58 AM EST 06/27/2022 6:24 AM EST Narrative Resulting Agency Comment Spec In Lab Eddi Vázquez MD HEMATOLOGY ORDERABLE S [facility] [place] [address] * (ABNORMAL) Hemogram (06/27/2022 5:58 AM EST) White Blood Cell 5.5 4.0 - 9.5 x10(3)/mc L [facility] Red Blood Cell 3.85(L) 4.00 - 5.21 x10(6)/mc L [facility] Hemoglobin 9.2(L) 11.7 - 15.5 g/dL [facility] Hematocrit 30.0(L) 35.7 - 45.8 % [facility] Mean Cell Volume 77.9(L) 82.6 - 94.4 fL [facility] Mean Cell Hemoglobin 23.9(L) 27.1 - 32.0 pg [facility] Mean Cell Hemoglobin Concentration 30.7(L) 31.7 - 35.0 g/dL [facility] Platelet 389(H) 145 - 357 x10(3)/mc L [facility] RDW Standard Deviation 50.5(H) 37.0 - 46.0 fL [facility] RDW coefficient of variation 17.9(H) 11.5 - 14.1 % [facility] Mean Platelet Volume 9.4 7.6 - 12.9 fL [facility] NRBC% auto 0.0 % [facility] NRBC Absolute 0.000 0.000 - 0.000 x10(3)/mc L [facility] Blood 06/27/2022 5:58 AM EST 06/27/2022 6:24 AM EST Narrative Resulting Agency Comment Spec In Lab Eddi Vázquez MD HEMATOLOGY ORDERABLE S [facility] [place] [address] * (ABNORMAL) Basic Metabolic Panel (non-fasting) (06/27/2022 5:58 AM EST) Glucose 97 65 - 199 mg/dL [facility] Comment:Diabetes: >=200 mg/d L plus symptoms Blood Urea Nitrogen 12 8 - 18 mg/dL [facility] Creatinine 0.32(L) 0.70 - 1.20 mg/dL [facility] Sodium 138 135 - 145 mmol/L [facility] Potassium 3.9 3.5 - 5.0 mmol/L [facility] Comment: Please note: ??Patients with WBC >100,000 may have falsely elevated Potassium levels. ??For accurate Potassium quantification in these patients send serum separator tube (gold top) for subsequent determinations. ??Contact the Clinical Chemistry Laboratory if there are any questions. Chloride 102 98 - 107 mmol/L [facility] Carbon Dioxide 25 22 - 31 mmol/L [facility] Anion Gap 11 5 - 15 mmol/L [facility] Calcium 9.2 8.5 - 10.5 mg/dL [facility] Est Glomerular Filtration Rate 145 >=60 mL/min/1. 73 m?? [facility] Comment: This patient's estimated GFR was [...] In Lab Eddi Vázquez MD CHEMISTRY ORDERABLES [facility] [place] [address] * (ABNORMAL) Blood Gas Venous (NL) (06/26/2022 9:01 PM EST) pH, Venous 7.45(H) 7.32 - 7.42 [facility] PCO2, Venous 40(L) 41 - 51 mmHg [facility] PO2, Venous 70(H) 25 - 40 mmHg [facility] Bicarbonate, Venous 27.2 mmol/L [facility] Base Excess, Venous 3.2 mmol/L [facility] Hgb Blood Gas 11.5(L) 11.7 - 15.5 g/dL [facility] Oxyhemoglobin, Venous 94.6 % [facility] Carboxyhemoglob in, Venous 0.1 % [facility] Comment: Nonsmokers: 0.5-1.5% COHB Smokers: Variable, but usually less than 10% Toxic: 20-30% COHB Lethal: Greater than 60% COHB Methemoglobin, Venous 0.3 <=1.5 % [facility] Na Whole Blood 140 135 - 145 mmol/L [facility] K Whole Blood 4.2 3.5 - 5.0 mmol/L [facility] Comment: Please note: Patients with WBC >100,000 may have falsely elevated Potassium levels. Contact the Clinical Chemistry Laboratory if there are any questions. ICa Whole Blood 1.20 1.15 - 1.33 mmol/L [facility] Comment: Note: ??Total bilirubin higher than 20 mg/dL may lead to falsely low ionized calcium. CL Whole Blood 101 98 - 107 mmol/L [facility] Gluc Whole Bld 98 65 - 199 mg/dL [facility] Comment:Diabetes: >=200 mg/d L plus symptoms Lactate WB 1.3 0.5 - 2.2 mmol/L [facility] Blood Gas Source Venous [facility] Blood Venous Draw / Unknown 06/26/2022 9:01 PM EST 06/26/2022 9:07 PM EST Narrative Resulting Agency Comment Spec In Lab Mayank Kang MD CHEMISTRY ORDERABLES [facility] [place] [address] * EKG 12 Lead (06/26/2022 8:46 PM EST) Ventricular rate 136 BPM MUSE SYSTEM Atrial Rate 136 BPM MUSE SYSTEM P-R Interval 126 ms MUSE SYSTEM QRS Duration 72 ms MUSE SYSTEM Q-T Interval 298 ms MUSE SYSTEM QTC Calculated (Bezet) 448 ms MUSE SYSTEM Calculated P [place] 35 degrees MUSE SYSTEM Calculated R [place] 7 degrees MUSE SYSTEM Calculated T [place] 52 degrees MUSE SYSTEM INTERPRETATION Sinus tachycardia Abnormal ECG Confirmed by Altagracia Palomo ([id number]) on 06/27/2022 3:21:46 PM MUSE SYSTEM 06/26/2022 8:46 PM EST 06/27/2022 3:21 PM EST Mayank Kang MD ECG ORDERABLES MUSE SYSTEM * Differential, Automated (06/26/2022 5:38 AM EST) Neutrophil % 55.3 % [facility] Neutrophil Absolute 2.95 1.70 - 6.10 x10(3)/[facility] Lymph % 34.1 % [facility] Lymphocytes Abs 1.8 0.9 - 3.2 x10(3)/[facility] Monocyte % 8.1 % [facility] Monocyte Abs 0.4 0.3 - 0.9 x10(3)/[facility] Eos % 1.7 % [facility] Eosinophils Abs 0.1 0.0 - 0.4 x10(3)/[facility] Basophil % 0.6 % [facility] Baso Absolute 0.0 0.0 - 0.1 x10(3)/[facility] Immature Gran % 0.20 % [facility] Comment: Immature granulocytes(IG's)percentage and absolute count will include metamyelocytes, myelocytes, and promyelocytes. Blood smears from CBCs yielding IG's will be scanned manually for concordance. If this scan disagrees with the automated IG or if promyelocytes are noted, a manual differential will be performed. Immature Gran Absolute 0.01 0.00 - 0.04 x10(3)/[facility] Blood 06/26/2022 5:38 AM EST 06/26/2022 6:21 AM EST Narrative Resulting Agency Comment Spec In Lab Eddi Vázquez MD HEMATOLOGY ORDERABLE S [facility] [place] [address] * (ABNORMAL) Hemogram (06/26/2022 5:38 AM EST) White Blood Cell 5.3 4.0 - 9.5 x10(3)/mc L [facility] Red Blood Cell 4.30 4.00 - 5.21 x10(6)/mc L [facility] Hemoglobin 10.1(L) 11.7 - 15.5 g/dL [facility] Hematocrit 33.5(L) 35.7 - 45.8 % [facility] Mean Cell Volume 77.9(L) 82.6 - 94.4 fL [facility] Mean Cell Hemoglobin 23.5(L) 27.1 - 32.0 pg [facility] Mean Cell Hemoglobin Concentration 30.1(L) 31.7 - 35.0 g/dL [facility] Platelet 467(H) 145 - 357 x10(3)/mc L [facility] RDW Standard Deviation 50.8(H) 37.0 - 46.0 fL [facility] RDW coefficient of variation 18.1(H) 11.5 - 14.1 % [facility] Mean Platelet Volume 9.4 7.6 - 12.9 fL [facility] NRBC% auto 0.0 % [facility] NRBC Absolute 0.000 0.000 - 0.000 x10(3)/ L [facility] Blood 06/26/2022 5:38 AM EST 06/26/2022 6:21 AM EST Narrative Resulting Agency Comment Spec In Lab Eddi Vázquez MD HEMATOLOGY ORDERABLE S Performing Organization Address City/State/[facility] Co de Phone Number [facility] [place] [address] * (ABNORMAL) Basic Metabolic Panel (non-fasting) (06/26/2022 5:38 AM EST) Glucose 97 65 - 199 mg/dL [facility] Comment:Diabetes: >=200 mg/d L plus symptoms Blood Urea Nitrogen 12 8 - 18 mg/dL [facility] Creatinine 0.28(L) 0.70 - 1.20 mg/dL [facility] Sodium 141 135 - 145 mmol/L [facility] Potassium 4.2 3.5 - 5.0 mmol/L [facility] Comment: Please note: ??Patients with WBC >100,000 may have falsely elevated Potassium levels. ??For accurate Potassium quantification in these patients send serum separator tube (gold top) for subsequent determinations. ??Contact the Clinical Chemistry Laboratory if there are any questions. Chloride 103 98 - 107 mmol/L [facility] Carbon Dioxide 26 22 - 31 mmol/L [facility] Anion Gap 12 5 - 15 mmol/L [facility] Calcium 9.3 8.5 - 10.5 mg/dL [facility] Est Glomerular Filtration Rate 150 >=60 mL/min/1. 73 m?? [facility] LABORATORY Comment: This patient's estimated GFR was [...] Vázquez MD CHEMISTRY ORDERABLES Performing Organization Address City/State/[facility] Co de Phone Number [facility] [place] [address] * IR All Drainage Procedures (06/25/2022 4:45 [...] 25 cc. Fluoroscopy time: ?? Please see [facility] IR technologist record for procedural dose/time. Cefazolin/ [...] ??The tract was dilated, and an 8 Belgian drain was advanced over the wire into [...] aspiration demonstrated shiraz pus, and an 8 Belgian drain was placed using ultrasound guidance as above. I, the attending Interventional Radiologist performed the entire procedure. ?? Eddi Vázquez MD IMG IR ORDERABLES * Anaerobic Culture (06/25/2022 3:12 PM EST) Anaerobic Culture No anaerobic organisms isolated [facility] Fluid 06/25/2022 3:12 PM EST 06/25/2022 5:21 PM EST Comment:Inferior spinal flui d collection Narrative Resulting Agency Comment Spec In Lab Anurag Call DO MICROBIOLOGY - GENER AL ORDERABLES Performing Organization Address City/[facility]/ZIP Co de Phone Number [facility] [place] [address] * Body Fluid Culture, Aerobic (06/25/2022 3:12 PM EST) Body Fluid Culture No growth [facility] Gram Stain Many Neutrophils seen No microorganisms seen. [facility] Fluid 06/25/2022 3:12 PM EST 06/25/2022 5:21 PM EST Comment:Inferior spinal flui d collection Narrative Resulting Agency Comment Spec In Lab Anurag Call DO MICROBIOLOGY - GENER AL ORDERABLES Performing Organization Address City/[facility] Co de Phone Number [facility] [place] [address] * Anaerobic Culture (06/25/2022 3:11 PM EST) Anaerobic Culture No anaerobic organisms isolated [facility] Fluid 06/25/2022 3:11 PM EST 06/25/2022 5:21 PM EST Comment:Superior spinal flui d collection Narrative Resulting Agency Comment Spec In Lab Anurag Call DO MICROBIOLOGY - GENER AL ORDERABLES Performing Organization Address City/[facility] Co de Phone Number [facility] [place] [address] * Body Fluid Culture, Aerobic (06/25/2022 3:11 PM EST) Body Fluid Culture No growth [facility] Gram Stain Many Neutrophils seen No microorganisms seen. [facility] Fluid 06/25/2022 3:11 PM EST 06/25/2022 5:21 PM EST Comment:Superior spinal flui d collection Narrative Resulting Agency Comment Spec In Lab Anurag Call DO MICROBIOLOGY - GENER AL ORDERABLES Performing Organization Address City/[facility] Co de Phone Number [facility] [address] * Blood culture (06/25/2022 8:55 AM EST) Blood Culture No growth at 5 days. [facility] Blood Pediatric STRUCTURE OF RIGHT HAND / Unknown 06/25/2022 8:55 AM EST 06/25/2022 9:16 AM EST Comment:#2 Narrative Resulting Agency Comment Spec In Lab Eddi Vázquez MD MICROBIOLOGY - BLOOD ORDERABLES Performing Organization Address [facility] Co de Phone Number [facility] [address] * Blood culture (06/25/2022 8:55 AM EST) Blood Culture No growth at 5 days. [facility] Blood Pediatric STRUCTURE OF RIGHT UPPER LIMB / Unknown 06/25/2022 8:55 AM EST 06/25/2022 9:16 AM EST Comment:#1 upper Narrative Resulting Agency Comment Spec In Lab Eddi Vázquez MD MICROBIOLOGY - BLOOD ORDERABLES Performing Organization Address [facility] Co de Phone Number [facility] [address] * Differential, Automated (06/25/2022 2:20 AM EST) Neutrophil % 60.4 % [facility] Neutrophil Absolute 4.34 1.70 - 6.10 x10(3)/[facility] LABORATORY Lymph % 30.3 % [facility]ORATORY Lymphocytes Abs 2.2 0.9 - 3.2 x10(3)/[facility] LABORATORY Monocyte % 7.2 % [facility] IT[facility] LABORATORY Monocyte Abs 0.5 0.3 - 0.9 x10(3)/[facility] LABORATORY Eos % 1.4 % [facility] Eosinophils Abs 0.1 0.0 - 0.4 x10(3)/[facility] LABORATORY Basophil % 0.6 % [facility] ITAL LABORATORY Baso Absolute 0.0 0.0 - 0.1 x10(3)/[facility] LABORATORY Immature Gran % 0.10 % [facility] Comment: Immature granulocytes(IG's)percentage and absolute count will include metamyelocytes, myelocytes, and promyelocytes. Blood smears from CBCs yielding IG's will be scanned manually for concordance. If this scan disagrees with the automated IG or if promyelocytes are noted, a manual differential will be performed. Immature Gran Absolute 0.01 0.00 - 0.04 x10(3)/[facility] LABORATORY Blood 06/25/2022 2:20 AM EST 06/25/2022 2:26 AM EST Narrative Resulting Agency Comment Spec In Lab Eddi Vázquez MD HEMATOLOGY ORDERABLE S Performing Organization Address City/State/[facility] Co de Phone Number [facility] [place] [address] * (ABNORMAL) Hemogram (06/25/2022 2:20 AM EST) White Blood Cell 7.2 4.0 - 9.5 x10(3)/mc L [facility] Red Blood Cell 4.06 4.00 - 5.21 x10(6)/mc L [facility] Hemoglobin 9.8(L) 11.7 - 15.5 g/dL [facility] Hematocrit 30.7(L) 35.7 - 45.8 % [facility] Mean Cell Volume 75.6(L) 82.6 - 94.4 fL [facility] Mean Cell Hemoglobin 24.1(L) 27.1 - 32.0 pg [facility] Mean Cell Hemoglobin Concentration 31.9 31.7 - 35.0 g/dL [facility] Platelet 437(H) 145 - 357 x10(3)/mc L [facility] RDW Standard Deviation 48.7(H) 37.0 - 46.0 fL [facility] RDW coefficient of variation 17.9(H) 11.5 - 14.1 % [facility] Mean Platelet Volume 8.9 7.6 - 12.9 fL [facility] NRBC% auto 0.0 % [facility] ITAL LABORAT[facility] NRBC Absolute 0.000 0.000 - 0.000 x10(3)/mc L [facility] Blood 06/25/2022 2:20 AM EST 06/25/2022 2:26 AM EST Narrative Resulting Agency Comment Spec In Lab Eddi Vázquez MD HEMATOLOGY ORDERABLE S [facility] [address] [place] [address] * (ABNORMAL) Basic Metabolic Panel (non-fasting) (06/25/2022 2:20 AM EST) Glucose 97 65 - 199 mg/dL [facility] Comment:Diabetes: >=200 mg/d L plus symptoms Blood Urea Nitrogen 9 8 - 18 mg/dL [facility] Creatinine 0.30(L) 0.70 - 1.20 mg/dL [facility] Sodium 140 135 - 145 mmol/L [facility] Potassium 4.1 3.5 - 5.0 mmol/L [facility] Comment: Please note: ??Patients with WBC >100,000 may have falsely elevated Potassium levels. ??For accurate Potassium quantification in these patients send serum separator tube (gold top) for subsequent determinations. ??Contact the Clinical Chemistry Laboratory if there are any questions. Chloride 103 98 - 107 mmol/L [facility] Carbon Dioxide 27 22 - 31 mmol/L [facility] Anion Gap 10 5 - 15 mmol/L [facility] Calcium 9.4 8.5 - 10.5 mg/dL [facility] Est Glomerular Filtration Rate 147 >=60 mL/min/1. 73 m?? [facility] Comment: This patient's estimated GFR was [...] In Lab Eddi Vázquez MD CHEMISTRY ORDERABLES [facility] [place] [address] * CT Lumbar Spine w Contrast (06/24/2022 [...] who have questions please contact the health dog daycare provider that requested your imaging first. ? [...] patients who have questions please contactthe health dog daycare provider that requested your imaging first. Annabella Crawford APRN IMG CT ORDERABLES * Differential, Automated (06/24/2022 4:23 PM EST) Neutrophil % 63.2 % [facility] Neutrophil Absolute 4.29 1.70 - 6.10 x10(3)/[facility] LABORATORY Lymph % 29.4 % [facility] Lymphocytes Abs 2.0 0.9 - 3.2 x10(3)/[facility] LABORATORY Monocyte % 4.6 % [facility] Monocyte Abs 0.3 0.3 - 0.9 x10(3)/[facility] LABORATORY Eos % 1.8 % [facility] Eosinophils Abs 0.1 0.0 - 0.4 x10(3)/[facility] LABORATORY Basophil % 0.7 % [facility] Baso Absolute 0.0 0.0 - 0.1 x10(3)/[facility] LABORATORY Immature Gran % 0.30 % [facility] Comment: Immature granulocytes(IG's)percentage and absolute count will include metamyelocytes, myelocytes, and promyelocytes. Blood smears from CBCs yielding IG's will be scanned manually for concordance. If this scan disagrees with the automated IG or if promyelocytes are noted, a manual differential will be performed. Immature Gran Absolute 0.02 0.00 - 0.04 x10(3)/[facility] LABORATORY Blood 06/24/2022 4:23 PM EST 06/24/2022 4:38 PM EST Narrative Resulting Agency Comment Spec In Lab Kvng SIMMS HEMATOLOGY ORDERABL ES Performing Organization Address City/State/[facility] Co de Phone Number [facility] [place] [address] * (ABNORMAL) Hemogram (06/24/2022 4:23 PM EST) White Blood Cell 6.8 4.0 - 9.5 x10(3)/mc L [facility] Red Blood Cell 4.40 4.00 - 5.21 x10(6)/mc L [facility] Hemoglobin 10.5(L) 11.7 - 15.5 g/dL [facility] Hematocrit 33.6(L) 35.7 - 45.8 % [facility] Mean Cell Volume 76.4(L) 82.6 - 94.4 fL [facility] Mean Cell Hemoglobin 23.9(L) 27.1 - 32.0 pg [facility] Mean Cell Hemoglobin Concentration 31.3(L) 31.7 - 35.0 g/dL [facility] Platelet 516(H) 145 - 357 x10(3)/mc L [facility] RDW Standard Deviation 48.5(H) 37.0 - 46.0 fL [facility] RDW coefficient of variation 17.8(H) 11.5 - 14.1 % [facility] Mean Platelet Volume 9.0 7.6 - 12.9 fL [facility] NRBC% auto 0.0 % [facility] NRBC Absolute 0.000 0.000 - 0.000 x10(3)/mc L [facility] Blood 06/24/2022 4:23 PM EST 06/24/2022 4:38 PM EST Narrative Resulting Agency Comment Spec In Lab Kvng SIMMS HEMATOLOGY ORDERABL ES Performing Organization Address [facility] Co de Phone Number [facility] [place] [address] * (ABNORMAL) Sedimentation rate (06/24/2022 4:23 PM EST) Sedimentation Rate Automated >119(H) 2 - 37 mm/hr [facility] Comment: Effective April 06, 2019 new capillary photometric technology has resulted in a change in reference ranges. It is recommended that each ESR result be reviewed with its own age appropriate reference range. Blood 06/24/2022 4:23 PM EST 06/24/2022 4:38 PM EST Narrative Resulting Agency Comment Spec In Lab Gaby Robert MD HEMATOLOGY ORDERABLE S Performing Organization Address City/[facility]/ZIP Co de Phone Number [facility] [place] [address] * (ABNORMAL) CRP, acute inflammation (06/24/2022 4:23 PM EST) C-Reactive Protein 96.9(H) <=4.9 mg/L [facility] Blood 06/24/2022 4:23 PM EST 06/24/2022 4:38 PM EST Narrative Resulting Agency Comment Spec In Lab Gaby Robert MD CHEMISTRY ORDERABLES [facility] [address] [place] [address] * (ABNORMAL) Basic Metabolic Panel (non-fasting) (06/24/2022 4:23 PM EST) Glucose 97 65 - 199 mg/dL [facility] Comment:Diabetes: >=200 mg/d L plus symptoms Blood Urea Nitrogen 9 8 - 18 mg/dL [facility] Creatinine 0.26(L) 0.70 - 1.20 mg/dL [facility] Sodium 143 135 - 145 mmol/L [facility] Potassium 3.9 3.5 - 5.0 mmol/L [facility] Comment: Please note: ??Patients with WBC >100,000 may have falsely elevated Potassium levels. ??For accurate Potassium quantification in these patients send serum separator tube (gold top) for subsequent determinations. ??Contact the Clinical Chemistry Laboratory if there are any questions. Chloride 104 98 - 107 mmol/L [facility] Carbon Dioxide 27 22 - 31 mmol/L [facility] Anion Gap 12 5 - 15 mmol/L [facility] Calcium 10.0 8.5 - 10.5 mg/dL [facility] Est Glomerular Filtration Rate 152 >=60 mL/min/1. 73 m?? [facility] Comment: This patient's estimated GFR was [...] In Lab Gaby Robert MD CHEMISTRY ORDERABLES [facility] [place] [address] documented in this encounter Visit Diagnoses Diagnosis [...] Until Discontinued, Routine 1424 (Given - Provider: iV Bonds RN) 0942 (Given - Provider: Vi [...] documented as of this encounter Care Teams Handbag Operator Relationship Specialty Start Date End Date Lorna Bal APRN [address] [place] [address] PCP - General Family Medicine 05/27/18 documented as of this encounter
--- OUTSIDE RECORDS SUMMARY | 2024-01-05 18:25 | XMS_ITS | Encounter Summary ---
Author Organization [facility] Address [facility] [place] [address] Care Team Providers Care Signal Integrity Engineer Name Role Phone Lorna Bal APRN Primary Care Provider [phone] Reason for Visit * Reason Comments Cerebral Palsy CP hip dysplasia Encounter Details Date Type Department Care Team (Late st Contact Info) Description 03/18/2019 2:00 PM EST Office [place] [phone] Josse Mckee MD [facility] [place]OP[place] [address] Acquired dysplasia of hip, unspecified laterality Social [...] NAME: Tana Cavazos AGE: 23 y.o.. MR#: [id number] ? DATE OF VISIT: 03/18/2019 ? STAFF: [...] continued pain. 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 She [...] would be continued care with an adult woodworking machine offbearer to try to utilize botox/phenol injections to manage her pain. He did recommend [facility] in the [place] area, as a good option for an adult woodworking machine offbearer. She can follow up PRN with Dr. Mckee, and will be transitioning to an adult provider. documented in this encounter Plan of Treatment Upcoming Encounters Date Type Department Care Team (Late st Contact Info) Description 06/02/2024 12:30 PM EST Office [place] [address] Hollie Ambriz MD [facility] INFECTI[place] [address] documented as of this encounter Results * [...] laterality documented in this encounter Care Teams Signal Integrity Engineer Relationship Specialty Start Date End Date Lorna Bal APRN [address] [place] [address] PCP - General Family Medicine 05/27/18 documented as of this encounter
--- OUTSIDE RECORDS SUMMARY | 2024-01-05 18:25 | XMS_ITS | Encounter Summary ---
Author Organization [facility] Address [facility] [place] [address] Care Team Providers Care Ceramics Technician Name Role Phone Lrona Bal APRN Primary Care Provider [phone] Encounter Details Date Type Department Care Team (Late st Contact Info) Description 06/30/2022 Orders [place] [phone] Sergey Keane MD [facility] INFECTI[place] [address] Spinal abscess Social History Tobacco Use Types [...] EST Office Visit [place] [address] Hollie Ambriz MD [facility] DR [place]FECTI[place] [address] documented as of this encounter Visit Diagnoses [...] documented as of this encounter Care Teams Ceramics Technician Relationship Specialty Start Date End Date Lorna Bal APRN [address] [place] [address] PCP - General Family Medicine 05/27/18 documented as of this encounter
--- OUTSIDE RECORDS SUMMARY | 2024-01-05 18:26 | XMS_ITS | Encounter Summary ---
Author Organization [facility] [place] [address] Care Team Providers Care Coal Wheeler Name Role Phone Naina Lindsey MD Primary Care Provider [phone] Reason for Visit * Reason Onset Date Comments Bumped Appointment 09/29/2014 Encounter Details Date Type Department Care Team (Late st Contact Info) Description 09/29/2014 [place]phone [place] [phone] Mesha Cabral MD [facility] [place] [address] Bumped Appointment Social History Tobacco Use Types [...] PM EST Office [place] [address] Hollie Ambriz MD [facility] [place] [address] documented as of this encounter Visit Diagnoses Not on filedocumented in this encounter Care Teams Coal Wheeler Relationship Specialty Start Date End Date [place] [address] PCP - General 03/19/10 08/25/16 documented as of this encounter
--- OUTSIDE RECORDS SUMMARY | 2024-01-05 18:26 | XMS_ITS | Encounter Summary ---
[place] [address] Care Team Providers Care Continuous Drier Operator Name Role Phone Naina Lindsey MD Primary Care Provider [phone] Reason for Visit * Reason Onset Date Comments Referral 09/13/2014 Encounter Details Date Type Department Care Team (Late st Contact Info) Description 09/13/2014 Telephone [place] [phone] Emelyn Perez Referral Social History Tobacco Use [...] from referral: [facility] On a in [facility]. documented in this encounter Plan of Treatment Upcoming Encounters Date Type Department Care Team (Late st Contact Info) Description 06/02/2024 12:30 PM EST Office Visit [place] [address] Hollie Ambriz MD [facility] [place] [address] documented as of this encounter Visit Diagnoses Not on filedocumented in this encounter Care Teams Continuous Drier Operator Relationship Specialty Start Date End Date Naina Lindsey MD [address] [place] [address] [place] [address] PCP - General 03/19/10 08/25/16 documented as of this encounter
--- OUTSIDE RECORDS SUMMARY | 2024-01-05 18:26 | XMS_ITS | Encounter Summary ---
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, SEQUEIA/ACQUIRED DYSPLASIA OF HIP Procedures PRO ANESTH, CAT/MRI SCAN, RADIATN THERAPY BONE SCAN Referral ID Status Reason Start Date Expiration Date Visits Re quested Visits Authorized [id number] 1 1 Encounter Details Date Type Department Care Team (Latest Contact Info) Description 12/30/2016 10:57 AM EDT - 12/30/2016 4:52 PM EDT Hospital Encounter Same Day Program at [facility] [place] [address] Janna Strickland [place] [address] Discharge Disposition: Home Social History Tobacco Use [...] 11:40; without success they called for another mixer and scaler. 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
--- OUTSIDE RECORDS SUMMARY | 2024-01-05 18:26 | XMS_ITS | Encounter Summary ---
Author Organization [facility] [place] [address] Care Team Providers Care Lens Mounter Name Role Phone Naina Lindsey MD Primary Care Provider [phone] Encounter Details Date Type Department Care Team (Late st Contact Info) Description 11/09/2014 Orders [place] [phone] Mesha Cabral MD [facility] [place] [address] Scoliosis Social History Tobacco Use Types Packs/Day [...] Office [place] [phone] Hollie Ambriz MD [facility] [place] [address] documented as of this encounter Visit Diagnoses Diagnosis Scoliosis Scoliosis (and kyphoscoliosis), idiopathic documented in this encounter Care Teams Lens Mounter Relationship Specialty Start Date End Date Naina Lindsey MD [address] [place] [address] [place] [address] PCP - General 03/19/10 08/25/16 documented as of this encounter
--- OUTSIDE RECORDS SUMMARY | 2024-01-05 18:26 | XMS_ITS | Encounter Summary ---
Author Organization [facility] Address [facility] [place] [address] Care Team Providers Care Bench Scientist Name Role Phone Emelyn Easley MD Primary Care Provider [phone] Encounter Details Date Type Department Care Team (Latest Contact Info) Description 11/24/2016 12:04 PM EDT - 11/24/2016 11:59 PM EDT Hospital Encounter XRay at [address] [place] [address] Josse Mckee MD [facility] [place] [address] Acquired dysplasia of hip, unspecified laterality Discharge [...] PM EST Office [place] [address] Hollie Ambriz MD [facility] [place] [address] documented as of this encounter Procedures Procedure [...] laterality documented in this encounter Care Teams Bench Scientist Relationship Specialty Start Date End Date Emelyn Easley MD [address] [place] [address] PCP - General Family Medicine 08/26/16 05/26/18 documented as of this encounter
--- OUTSIDE RECORDS SUMMARY | 2024-01-05 18:26 | XMS_ITS | Encounter Summary ---
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 [place] [address] Sidney Lawson MD [facility] [place] [address] Anesthesia Record Procedure Summary Procedure Name Responsible [...] Lawson MD - 12/30/2016 4:27 PM EDT [facility] Department of Anesthesiology Post-procedure Note Patient: Tana Cavazos Procedure Summary Date Anesthesia Start Anesthesia Stop Room / Location 12/30/16 1523 1608 [facility] ADULT RADIOLOGY / [facility] Procedure Diagnosis Surgeon Responsible Provider BONE SCAN (N/A ) (TBI, W/O LOC, SEQUEIA/ACQUIRED DYSPLASIA OF HIP) RESOURCE, ANESTHESIA-Gaby Hallman MD All Anesthesia Providers: Anesthesiologist: Gaby Cantu MD Online Services Manager: Sidney Lawson MD Last (1hr) Vitals: BP (!) 80/50 (12/30/16 1608) Temp 36.2 ??C (97.2 ??F) (12/30/16 1608) Pulse 93 (12/30/16 1608) Resp 16 (12/30/16 1608) SpO2 97 % (12/30/16 1608) Patient Location: PACU/[facility] Level of Consciousness: Awake and [...] BOTH LEGS performed by BARRERA OLIVER at [facility] OR ? ? PRO I&D, POST SPINE, LUMB/SACR/LUMBOSAC N/A 05/20/2014 @I & D, OPEN, DEEP ABSCESS, LUMBAR, SACRAL, LUMBOSACRAL performed by Freddy Isbell MD at [facility] OR ? ? PRO I&D, POST SPINE, LUMB/SACR/LUMBOSAC N/A 05/26/2014 @I & D, OPEN, DEEP ABSCESS, LUMBAR, SACRAL, LUMBOSACRAL performed by Freddy Isbell MD at [facility] OR ??? PRO OSTEOTOMY FEMUR SHAFT/SUPRACONDY 08/15/2010 ??OSTEOTOMY, FEMUR SHAFT OR SUPRACONDYLAR W/O FIXATION performed by BARRERA OLIVER at [facility] OR ??? PRO RECONSTRUC HIP SOCKET, RESEC FEM HEAD 08/15/2010 ??ACETABULOPLASTY (GIRDLESTONE), RESECTION FEMORAL HEAD, BILATERAL performed by BARRERA OLIVER [facility] OR ??? PRO REMOVAL DEEP IMPLANT 08/15/2010 REMOVAL IMPLANT, DEEP, BRUNO performed by BARRERA OLIVER at [facility] OR ??? PRO REMOVE INFUSN DEVICE/PUMP N/A 05/11/2014 REMOVAL OF SPINE INFUSION PUMP performed by Jamaal Samuel MD at [facility] OR ??? PRO REMOVE SPINAL CANAL CATHETER N/A 05/11/2014 REMOVAL OF INTRATHECAL OR EPIDURAL CATHETER performed by Jamaal Samuel MD at [facility] MAIN OR ??? PRO REPR, DURAL/CSF LEAK, NOT REQ LAMINECTOMY N/A 05/20/2014 @REPAIR DURAL\CSF LEAK,NOT REQUIRING LAMINECTOMY performed by Freddy Isbell MD at [facility] MAIN OR Social History Substance Use Topics ??? Smoking status: Never Smoker ??? Smokeless tobacco: Never Used Comment: NO SMOKERS IN THE HOME ??? Alcohol use No History Drug Use No Allergies Allergen Reactions ??? Fluoxetine Other (See Comments) HIVES, HEART RACES ??? Tegaderm [Transparent Dressings] Itching and Dermatitis Please use [id number] Medications: MAR and/or home medications have been [...] PM EST Office [place] [address] Hollie Ambriz MD [facility] [place] [address] documented as of this encounter Visit Diagnoses [...] mL/hr documented in this encounter Care Teams Bonding Machine Operator Relationship Specialty Start Date End Date Emelyn Easley MD [address] [place] [address] PCP - General Family Medicine 08/26/16 05/26/18 documented as of this encounter
--- OUTSIDE RECORDS SUMMARY | 2024-01-05 18:26 | XMS_ITS | Encounter Summary ---
Author Organization [facility] Address [facility] [place] [address] Care Team Providers Care Printed Circuit Board Layout Designer Name Role Phone Naina Lindsey MD Primary Care Provider [phone] Reason for Referral * Consultation (Routine) - Closed Specialty Diagnoses / Procedures Referred By Contac t Referred To Contact Orthotics Diagnoses Traumatic brain injury, sequela Spasticity Scoliosis Mesha Cabral MD [facility] [place] [address] Referral ID Status Reason Start Date Expiration Date V isits Requested Visits Authorized [id number] Closed Consult, Test & Treat 11/09/2014 05/08/2015 3 3 Reason for Visit * Reason Comments Follow-up [facility] [place] Encounter Details Date Type Department Care Team (Late st Contact Info) Description 11/09/2014 10:00 AM EDT Office Visit [place] [address] Mesha Cabral MD [facility] [place] [address] Acquired dysplasia of hip, unspecified laterality; Traumatic [...] when her orthopedic care was received at [facility], I do not have those [...] alignment where she had previously used a [place] type TLSO scoliosis brace, it does not [...] skin currently. Upper extremity exam reveals bilateral [id number]-[id number] contractures of the shoulders, elbows, and wrists, [...] would have to be a referral to [facility] as I am no longer [...] EST Office Visit [place] [address] Hollie Ambriz MD [facility] [place] [address] Scheduled Referrals Name Type Priority Associated Diagnoses [...] limb documented in this encounter Care Teams Printed Circuit Board Layout Designer Relationship Specialty Start Date End Date Naina Lindsey MD [address] [place] [address] PCP - General 03/19/10 08/25/16 documented as of this encounter
--- OUTSIDE RECORDS SUMMARY | 2024-01-05 18:26 | XMS_ITS | Encounter Summary ---
Author Organization [facility] [place] [address] Care Team Providers Care Media Relations Associate Name Role Phone Emelyn Easley MD Primary Care Provider [phone] Reason for Visit * Reason Onset Date Comments Appointment 02/05/2017 Encounter Details Date Type Department Care Team (Late st Contact Info) Description 02/05/2017 Telephone [place] [phone] Sarah Shah APRN [facility] [place] [address] Appointment Social History Tobacco Use Types Packs/Day [...] PM EST Office [place] [address] Hollie Ambriz MD [facility] [place] [address] documented as of this encounter Visit Diagnoses Not on filedocumented in this encounter Care Teams Media Relations Associate Relationship Specialty Start Date End Date Emelyn Easley MD [address] [place] [address] PCP - General Family Medicine 08/26/16 05/26/18 documented as of this encounter
--- OUTSIDE RECORDS SUMMARY | 2024-01-05 18:26 | XMS_ITS | Encounter Summary ---
Author Organization [facility] Address [facility] [place] [address] Care Team Providers Care Suede Cleaner Name Role Phone Naina Lindsey MD Primary Care Provider [phone] Encounter Details Date Type Department Care Team (Latest Contact Info) Description 07/31/2015 11:19 AM EDT - 07/31/2015 11:59 PM EDT Hospital Encounter XRay at [address] [place] [address] Mesha Cabral MD [facility] [place] [address] Neuromuscular scoliosis of lumbar region; Traumatic brain [...] Office [place] [address] Hollie Ambriz MD [facility] [place] [address] documented as of this encounter Procedures Procedure [...] Progression of remodeling and sclerosis about the inaja acetabulum and proximal right femoral fragment status [...] Progression of irregularity and remodeling about the inaja acetabulum. The femur remains gracile in nature. [...] Progression of irregularity and remodeling about the in[place] acetabulum. The femurremains gracile in nature. Absent femoral head. IMPRESSION IMPRESSION: Progression of remodeling and sclerosis about the inaja acetabulum andproximal right femoral fragment status post [...] encounter documented in this encounter Care Teams Suede Cleaner Relationship Specialty Start Date End Date Naina Lindsey MD [address] [place] [address] PCP - General 03/19/10 08/25/16 documented as of this encounter
--- OUTSIDE RECORDS SUMMARY | 2024-01-05 18:26 | XMS_ITS | Encounter Summary ---
Author Organization [facility] Address [facility] [place] [address] Care Team Providers Care Wax Pattern Coater Name Role Phone Naina Lindsey MD Primary Care Provider [phone] Reason for Visit * Reason Comments Scoliosis Encounter Details Date Type Department Care Team (Late st Contact Info) Description 12/29/2014 9:00 AM EDT Office [place] [phone] Ty Vogel MD [facility] [place] [address] Scoliosis Discharge Disposition: Home Social History Tobacco [...] past history with care received both at [facility] and in [place]. PAST MEDICAL HISTORY: For full history, please [...] PM EST Office [place] [address] Hollie Ambriz MD [facility] [place] [address] documented as of this encounter Visit Diagnoses Diagnosis Scoliosis Scoliosis (and kyphoscoliosis), idiopathic documented in this encounter Care Teams Wax Pattern Coater Relationship Specialty Start Date End Date Naina Lindsey MD [address] [place] [address] [place] [address] PCP - General 03/19/10 08/25/16 documented as of this encounter
--- OUTSIDE RECORDS SUMMARY | 2024-01-05 18:26 | XMS_ITS | Encounter Summary ---
Author Organization [facility] Address [facility] [place] [address] Care Team Providers Care Spike Driver Name Role Phone Emelyn Easley MD Primary Care Provider [phone] Encounter Details Date Type Department Care Team (Latest Contact Info) Description 11/24/2016 12:03 PM EDT Hospital Encounter XRay at [address] [place] [address] Josse Mckee MD [facility] [place] [address] Neuromuscular scoliosis of lumbar region Discharge Disposition: [...] Disease at [facility] [place] [address] Hollie Ambriz MD [facility] DR [place] [address] documented as of this encounter Procedures Procedure [...] scoliosis documented in this encounter Care Teams Spike Driver Relationship Specialty Start Date End Date Emelyn Easley MD [address] [place] [address] PCP - General Family Medicine 08/26/16 05/26/18 documented as of this encounter
--- OUTSIDE RECORDS SUMMARY | 2024-01-05 18:26 | XMS_ITS | Encounter Summary ---
Author Organization [facility] [place] [address] Care Team Providers Care Horseback Excavator Name Role Phone Naina Lindsey MD Primary Care Provider [phone] Reason for Referral * Consultation (Routine) - Closed Specialty Diagnoses / Procedures Referred By Contac t Referred To Contact Neurology Diagnoses Traumatic brain injury, without loss of consciousness, sequela Spasticity Contracture of elbow, left Mesha Cabral MD [facility] [place] [address] Myah Abdi, [facility] [place] [address] Referral ID Status Reason Start Date Expiration Date V isits Requested Visits Authorized [id number] Closed Consult, Test & Treat 07/31/2015 07/30/2016 1 1 * Consultation (Routine) - Closed Specialty Diagnoses / Procedures Referred By Contac t Referred To Contact Diagnoses Traumatic brain injury, without loss of consciousness, sequela Spasticity Contracture of elbow, left Mesha Cabral MD [facility] [place] [address] Unknown None Referral ID Status Reason Start Date Expiration Date V isits Requested Visits Authorized [id number] Closed Consult, Test & Treat 07/31/2015 01/27/2016 1 1 Reason for Visit * Reason Comments Right Leg Pain Delayed Development Childhood Encounter Details Date Type Department Care Team (Late st Contact Info) Description 07/31/2015 11:00 AM EDT Office [place] [address] Mesha Cabral MD [facility] [place] [address] Neuromuscular scoliosis of lumbar region; Traumatic brain [...] a followup for this established patient of [employer]. She is 20 years old and has an underlying diagnosis of spastic quadriplegic cerebral palsy. She is accompanied by her mother and mechatronics engineer. Recently it has been noted that she [...] that I will be leaving [facility] at the end of September of this [...] needs. Provider: Mesha Cabral MD [place] [address] documented in this encounter Plan of Treatment Upcoming Encounters Date Type Department Care Team (Late st Contact Info) Description 06/02/2024 12:30 PM EST Office Visit [place] [address] Hollie Ambriz MD [facility] [place] [address] Scheduled Referrals Name Type Priority Associated Diagnoses [...] Progression of remodeling and sclerosis about the [place] acetabulum and proximal right femoral fragment status [...] Progression of irregularity and remodeling about the [place] acetabulum. The femur remains gracile in nature. [...] Progression of irregularity and remodeling about the [place] acetabulum. The femurremains gracile in nature. Absent femoral head. IMPRESSION IMPRESSION: Progression of remodeling and sclerosis about the [place] acetabulum andproximal right femoral fragment status post [...] encounter documented in this encounter Care Teams Horseback Excavator Relationship Specialty Start Date End Date Naina Lindsey MD [address] [place] [address] PCP - General 03/19/10 08/25/16 documented as of this encounter
--- OUTSIDE RECORDS SUMMARY | 2024-01-05 18:26 | XMS_ITS | Encounter Summary ---
[place] [address] Care Team Providers Care Cop Winder Name Role Phone Naina Lindsey MD Primary Care Provider [phone] Encounter Details Date Type Department Care Team (Late st Contact Info) Description 01/04/2015 Telephone [place] [phone] Camille Griffin RN Social History Tobacco Use [...] equipment services. They do not have a [place] provider licence so they will not be able to help with the wheelchair. Spoke with mom and she does not want to go through [facility] again. Will discuss with the team to see if there are other options in [place] for the wheelchair. documented in this encounter Plan of Treatment Upcoming Encounters Date Type Department Care Team (Late st Contact Info) Description 06/02/2024 12:30 PM EST Office Visit [place] [address] Hollie Ambriz MD [facility] [place] [address] documented as of this encounter Visit Diagnoses Not on filedocumented in this encounter Care Teams Cop Winder Relationship Specialty Start Date End Date Naina Lindsey MD [address] [place] [address] PCP - General 03/19/10 08/25/16 documented as of this encounter
--- OUTSIDE RECORDS SUMMARY | 2024-01-05 18:26 | XMS_ITS | Encounter Summary ---
Author Organization [facility] [place] [address] Care Team Providers Care Thiokol Operator Name Role Phone Naina Lindsey MD Primary Care Provider [phone] Encounter Details Date Type Department Care Team (Late st Contact Info) Description 12/29/2014 Orders Only [place] [address] Mesha Cabral MD [facility] DR [place]OPAEDIC [place] [address] Acquired dysplasia of hip, unspecified laterality; Presence [...] EST Office Visit [place] [address] Hollie Ambriz MD [facility] [place] [address] documented as of this encounter Visit Diagnoses Diagnosis Acquired dysplasia of hip, unspecified laterality Presence of intrathecal baclofen pump Scoliosis Scoliosis (and kyphoscoliosis), idiopathic Spasticity Abnormal involuntary movements Traumatic brain injury, sequela documented in this encounter Care Teams Thiokol Operator Relationship Specialty Start Date End Date Naina Lindsey MD [address] [place] [address] [place] [address] PCP - General 03/19/10 08/25/16 documented as of this encounter
--- OUTSIDE RECORDS SUMMARY | 2024-01-05 18:26 | XMS_ITS | Encounter Summary ---
Author Organization [facility] [place] [address] Care Team Providers Care Rear Load Truck Driver Name Role Phone Naina Lindsey MD Primary Care Provider [phone] Reason for Visit * Reason Onset Date Comments Appointment 10/12/2014 Encounter Details Date Type Department Care Team (Late st Contact Info) Description 10/12/2014 Telephone [place] [phone] Mesha Cabral MD [facility] [place] [address] Appointment Social History Tobacco Use Types Packs/Day [...] Office [place] [address] Hollie Ambriz MD [facility] [place] [address] documented as of this encounter Visit Diagnoses Not on filedocumented in this encounter Care Teams Rear Load Truck Driver Relationship Specialty Start Date End Date Naina Lindsey MD [address] [place] [address] [place] [address] PCP - General 03/19/10 08/25/16 documented as of this encounter
--- OUTSIDE RECORDS SUMMARY | 2024-01-05 18:26 | XMS_ITS | Encounter Summary ---
[place] [address] Care Team Providers Care Lean Process Deployment Consultant Name Role Phone Emelyn Easley MD Primary Care Provider [phone] Reason for Visit * Reason Onset Date Comments Other 12/19/2016 Encounter Details Date Type Department Care Team (Late st Contact Info) Description 12/19/2016 Telephone [place] [address] Josse Mckee MD [facility] [place] [address] Other Social History Tobacco Use Types Packs/Day [...] PM EST Office [place] [address] Hollie Ambriz MD [facility] [place] [address] documented as of this encounter Visit Diagnoses Not on filedocumented in this encounter Care Teams Lean Process Deployment Consultant Relationship Specialty Start Date End Date Emelyn Easley MD [address] [place] [address] PCP - General Family Medicine 08/26/16 05/26/18 documented as of this encounter
--- OUTSIDE RECORDS SUMMARY | 2024-01-05 18:26 | XMS_ITS | Encounter Summary ---
Author Organization [facility] [place] [address] Care Team Providers Care Physician Pediatrician Name Role Phone Emelyn Easley MD Primary Care Provider [phone] Reason for Referral * Diagnostic Test (Routine) - Closed Specialty Diagnoses / Procedures Referred By Contac t Referred To Contact Radiology Diagnoses Traumatic brain injury, without LOC, sequela Acquired dysplasia of hip, unspecified laterality Procedures NM Whole Body Bone Scan Vanda Carter, [place] [address] [place] [address] Referral ID Status Reason Start Date Expiration Date V isits Requested Visits Authorized [id number] Closed Specialty Service Requested 12/16/2016 12/16/2017 2 2 Reason for Visit * Auth/Cert Specialty Diagnoses / Procedures Referred By Contac t Referred To Contact Diagnoses TBI, W/O LOC, SEQUEIA/ACQUIRED DYSPLASIA OF HIP Procedures PRO ANESTH, CAT/MRI SCAN, RADIATN THERAPY BONE SCAN Referral ID Status Reason Start Date Expiration Date Visits Re quested Visits Authorized [id number] 1 1 Encounter Details Date Type Department Care Team (Latest Contact Info) Description 12/30/2016 12:00 PM EDT - 12/30/2016 2:56 PM EDT Hospital Encounter [place] [address] Josse Mckee MD [facility] [place] [address] Traumatic brain injury, without LOC, sequela; Acquired [...] Office [place] [address] Hollie Ambriz MD [facility] [place] [address] documented as of this encounter Procedures Procedure [...] residents interpretationand agree with the findings, Angelica Tayolr at 12/30/2016 5:18 PM Josse Mckee MD [...] mCi documented in this encounter Care Teams Physician Pediatrician Relationship Specialty Start Date End Date Emelyn Easley MD [address] [place] [address] PCP - General Family Medicine 08/26/16 05/26/18 documented as of this encounter
--- OUTSIDE RECORDS SUMMARY | 2024-01-05 18:26 | XMS_ITS | Encounter Summary ---
Author Organization [facility] Address [facility] [place] [address] Care Team Providers Care Health Therapist Name Role Phone Naina Lindsey MD Primary Care Provider [phone] Encounter Details Date Type Department Care Team (Latest Contact Info) Description 11/09/2014 11:01 AM EDT - 11/09/2014 11:59 PM EDT Hospital Encounter XRay at [address] [place] [address] Acquired dysplasia of hip, unspecified laterality; Traumatic [...] EST Office Visit [place] [address] Hollie Ambriz MD [facility] [place] [address] documented as of this encounter Procedures Procedure [...] limb documented in this encounter Care Teams Health Therapist Relationship Specialty Start Date End Date Naina Lindsey MD [address] [place] [address] PCP - General 03/19/10 08/25/16 documented as of this encounter
--- OUTSIDE RECORDS SUMMARY | 2024-01-05 18:26 | XMS_ITS | Encounter Summary ---
[place] [address] Care Team Providers Care Merchandise Manager Name Role Phone Emelyn Easley MD Primary Care Provider [phone] Reason for Referral * Diagnostic Test (Routine) - Closed Specialty Diagnoses / Procedures Referred By Contac t Referred To Contact Radiology Diagnoses Traumatic brain injury, without LOC, sequela Acquired dysplasia of hip, unspecified laterality Spasticity Neuromuscular scoliosis of lumbar region Procedures NM Whole Body Bone Scan Vanda Carter [place] [facility] [place] [address] [place] [address] Referral ID Status Reason Start Date Expiration Date V isits Requested Visits Authorized [id number] Closed Specialty Service Requested 11/24/2016 11/24/2017 1 1 Reason for Visit * Diagnostic Test (Routine) - Closed Specialty Diagnoses / Procedures Referred By Contac t Referred To Contact Radiology Diagnoses Traumatic brain injury, without LOC, sequela Acquired dysplasia of hip, unspecified laterality Spasticity Neuromuscular scoliosis of lumbar region Procedures NM Whole Body Bone Scan Vanda Carter [place] [facility] [place] [address] [facility] [place] [address] Referral ID Status Reason Start Date Expiration Date V isits Requested Visits Authorized [id number] Closed Specialty Service Requested 11/24/2016 11/24/2017 1 1 Encounter Details Date Type Department Care Team (Latest Contact Info) Description 12/10/2016 10:57 AM EDT - 12/10/2016 1:59 PM EDT Hospital En[place] [address] Josse Mckee MD [facility] [place] [address] Traumatic brain injury, without LOC, [...] Office [place] [address] Hollie Ambriz MD [facility] DR [place] [address] documented as of this encounter Procedures Procedure [...] mCi documented in this encounter Care Teams Merchandise Manager Relationship Specialty Start Date End Date Emelyn Easley MD [address] [place] [address] PCP - General Family Medicine 08/26/16 05/26/18 documented as of this encounter
--- OUTSIDE RECORDS SUMMARY | 2024-01-05 18:26 | XMS_ITS | Encounter Summary ---
Author Organization [facility] Address [facility] [place] [address] Care Team Providers Care Superintendent Greens Name Role Phone Naina Lindsey MD Primary Care Provider [phone] Encounter Details Date Type Department Care Team (Latest Contact Info) Description 07/31/2015 11:18 AM EDT Hospital Encounter XRay at [address] [place] [address] Mesha Cabral MD [facility] [place] [address] Neuromuscular scoliosis of lumbar region; Traumatic brain [...] PM EST Office [place] [address] Hollie Ambriz MD [facility] [place] [address] documented as of this encounter Procedures Procedure [...] sequela documented in this encounter Care Teams Superintendent Greens Relationship Specialty Start Date End Date Naina Lindsey MD [address] [place] [address] PCP - General 03/19/10 08/25/16 documented as of this encounter
--- OUTSIDE RECORDS SUMMARY | 2024-01-05 18:26 | XMS_ITS | Encounter Summary ---
[place] [address] Care Team Providers Care Body Mechanic Apprentice Name Role Phone Emelyn Easley MD Primary Care Provider Reason for Visit * Reason Onset Date Comments Appointment 12/10/2016 Encounter Details Date Type Department Care Team (Late st Contact Info) Description 12/10/2016 Telephone [place] [address] Josse Mckee MD [address] [place] [address] Appointment Social History Tobacco Use Types Packs/Day [...] PM EST Office [place] [address] Hollie Ambriz MD [facility] [place] [address] documented as of this encounter Visit Diagnoses Diagnosis Acquired dysplasia of hip, unspecified laterality Neuromuscular scoliosis of lumbar region Other kyphoscoliosis and scoliosis Traumatic brain injury, without LOC, sequela documented in this encounter Care Teams Body Mechanic Apprentice Relationship Specialty Start Date End Date Emelyn Easley MD [address] [place] [address] PCP - General Family Medicine 08/26/16 05/26/18 documented as of this encounter
--- OUTSIDE RECORDS SUMMARY | 2024-01-05 18:26 | XMS_ITS | Encounter Summary ---
Author Organization [facility] Address [facility] [address] Care Team Providers Care Towboat Operator Name Role Phone Naina Lindsey MD Primary Care Provider [phone] Reason for Visit * Reason Onset Date Comments Appointment 08/02/2015 Encounter Details Date Type Department Care Team (Late st Contact Info) Description 08/02/2015 [place] [address] Mesha Cabral MD [facility] DR ORTHOPAEDIC [place] [address] Appointment Social History Tobacco Use Types Packs/Day [...] PM EST Office [place] [address] Hollie Ambriz MD [facility] DR INFECTI[place] [address] documented as of this encounter Visit Diagnoses Not on filedocumented in this encounter Care Teams Towboat Operator Relationship Specialty Start Date End Date Naina Lindsey MD [address] [place] [address] PCP - General 03/19/10 08/25/16 documented as of this encounter
--- OUTSIDE RECORDS SUMMARY | 2024-01-05 18:26 | XMS_ITS | Encounter Summary ---
Author Organization [facility] Benjamin [facility] [place] [address] Care Team Providers Care Towing Pilot Name Role Phone Naina Lindsey MD Primary Care Provider [phone] Encounter Details Date Type Department Care Team (Late st Contact Info) Description 11/09/2014 Orders [place] [address] Mesha Cabral MD [facility] [place] [address] Scoliosis Social History Tobacco Use Types Packs/Day [...] PM EST Office [place] [address] Hollie Ambriz MD [facility] [place] [address] documented as of this encounter Results * [...] idiopathic documented in this encounter Care Teams Towing Pilot Relationship Specialty Start Date End Date Naina Lindsey MD [address] [place] [address] PCP - General 03/19/10 08/25/16 documented as of this encounter
--- OUTSIDE RECORDS SUMMARY | 2024-01-05 18:26 | XMS_ITS | Encounter Summary ---
Author Organization [facility] [place] [address] Care Team Providers Care It Program Auditor Name Role Phone Emelyn Easley MD Primary Care Provider [phone] Reason for Referral * Diagnostic Test (Routine) - Closed Specialty Diagnoses / Procedures Referred By Contac t Referred To Contact Radiology Diagnoses Traumatic brain injury, without LOC, sequela Acquired dysplasia of hip, unspecified laterality Procedures NM Whole Body Bone Scan Vanda Carter [place] [facility] [place] [address] [place] [address] Referral ID Status Reason Start Date Expiration Date V isits Requested Visits Authorized [id number] Closed Specialty Service Requested 12/16/2016 12/16/2017 2 2 Encounter Details Date Type Department Care Team (Late st Contact Info) Description 12/16/2016 Orders [place] [address] Vanda Carter [place] [facility] [place] [address] Traumatic brain injury, without LOC, sequela; Acquired [...] PM EST Office Visit [place] [address] Hollie Ambriz MD [facility] [place] [address] documented as of this encounter Results * [...] at 12/30/2016 5:18 PM Josse Mckee MD [facility] [place] ORDERABLES documented in this encounter Visit Diagnoses Diagnosis Traumatic brain injury, without LOC, sequela Acquired dysplasia of hip, unspecified laterality Traumatic brain injury, without LOC, sequela Acquired dysplasia of hip, unspecified laterality documented in this encounter Care Teams It Program Auditor Relationship Specialty Start Date End Date Emelyn Easley MD [address] [place] [address] PCP - General Family Medicine 08/26/16 05/26/18 documented as of this encounter
--- OUTSIDE RECORDS SUMMARY | 2024-01-05 18:26 | XMS_ITS | Encounter Summary ---
Author Organization [facility] Address [facility] [place] [address] Care Team Providers Care Wire Tester Name Role Phone Naina Lindsey MD Primary Care Provider Reason for Referral * Consultation (Routine) - Specialty Diagnoses / Procedures Referred By Contmonica duarte Referred To Contact Orthotics Diagnoses Neuromuscular scoliosis of lumbar region Joe Porter MD [facility] [place] [address] Referral ID Status Reason Start Date Expiration Date V isits Requested Visits Authorized [id number] Consult, Test & Treat 06/19/2016 12/16/2016 1 1 Encounter Details Date Type Department Care Team (Late st Contact Info) Description 06/19/2016 Orders [place] [address] Joe Porter MD Neuromuscular scoliosis of lumbar [...] Rx for soft TLSO brace faxed to [facility] in [facility]. documented in this encounter Plan of Treatment Upcoming Encounters Date Type Department Care Team (Late st Contact Info) Description 06/02/2024 12:30 PM EST Office Visit [place] [address] Hollie Ambriz MD [facility] [place] [address] Scheduled Referrals Name Type Priority Associated Diagnoses Orde r Schedule Referral to Othotist Outpatient Referral Routine Neuromuscular scoliosis of lumbar region Ordered: 06/19/2016 documented as of this encounter Visit Diagnoses Diagnosis Neuromuscular scoliosis of lumbar region Other kyphoscoliosis and scoliosis documented in this encounter Care Teams Wire Tester Relationship Specialty Start Date End Date Naina Lindsey MD [address] [place] [address] PCP - General 03/19/10 08/25/16 documented as of this encounter
--- OUTSIDE RECORDS SUMMARY | 2024-01-05 18:26 | XMS_ITS | Encounter Summary ---
Author Organization [facility] Address [facility] [place] [address] Care Team Providers Care Jacquard Lace Weaver Name Role Phone Naina Lindsey MD Primary Care Provider [phone] Encounter Details Date Type Department Care Team (Latest Contact Info) Description 11/09/2014 11:01 AM EDT - 11/09/2014 11:59 PM EDT Hospital Encounter XRay at [address] [place] [address] Acquired dysplasia of hip, unspecified laterality; Traumatic [...] PM EST Office [place] [address] Hollie Ambriz MD [facility] [place] [address] documented as of this encounter Procedures Procedure [...] limb documented in this encounter Care Teams Jacquard Lace Weaver Relationship Specialty Start Date End Date Naina Lindsey MD [address] [place] [address] PCP - General 03/19/10 08/25/16 documented as of this encounter
--- OUTSIDE RECORDS SUMMARY | 2024-01-05 18:26 | XMS_ITS | Encounter Summary ---
[place] [address] Care Team Providers Care Supervisor Hospitality House Name Role Phone Emelyn Easley MD Primary Care Provider [phone] Reason for Visit * Diagnostic Test (Routine) - Closed Specialty Diagnoses / Procedures Referred By Contac t Referred To Contact Radiology Diagnoses Traumatic brain injury, without LOC, sequela Acquired dysplasia of hip, unspecified laterality Spasticity Neuromuscular scoliosis of lumbar region Procedures NM Whole Body Bone Scan Vanda Carter PA [facility] [place] [address] [place] [address] Referral ID Status Reason Start Date Expiration Date V isits Requested Visits Authorized [id number] Closed Specialty Service Requested 11/24/2016 11/24/2017 1 1 Encounter Details Date Type Department Care Team (Latest Contact Info) Description 12/10/2016 2:00 PM EDT - 12/10/2016 11:59 PM EDT Hospital Encounter [place] [address] Josse Mckee MD [facility] [place] [address] Discharge Disposition: Home Social History [...] PM EST Office [place] [address] Hollie Ambriz MD [facility] [place] [address] documented as of this encounter Procedures Procedure [...] documented in this encounter Care Teams Supervisor Hospitality House Relationship Specialty Start Date End Date Emelyn Easley MD [address] [place] [address] PCP - General Family Medicine 08/26/16 05/26/18 documented as of this encounter
--- OUTSIDE RECORDS SUMMARY | 2024-01-05 18:26 | XMS_ITS | Encounter Summary ---
Author Organization [facility] Address [facility] [place] [address] Care Team Providers Care Painter Touch Up Name Role Phone Emelyn Easley MD Primary Care Provider [phone] Reason for Referral * Physical Therapy (Routine) - Closed Specialty Diagnoses / Procedures Referred By Contac t Referred To Contact Diagnoses Traumatic brain injury, without LOC, sequela Acquired dysplasia of hip, unspecified laterality Spasticity Neuromuscular scoliosis of lumbar region Vanda Carter PA [facility] [place] [address] Unknown None Referral ID Status Reason Start Date Expiration Date V isits Requested Visits Authorized [id number] Closed Evaluate and Treat 11/24/2016 05/23/2017 12 12 * Diagnostic Test (Routine) - Closed Specialty Diagnoses / Procedures Referred By Contac t Referred To Contact Radiology Diagnoses Traumatic brain injury, without LOC, sequela Acquired dysplasia of hip, unspecified laterality Spasticity Neuromuscular scoliosis of lumbar region Procedures NM Whole Body Bone Scan Vanda Carter [place] [facility] [address] [place] [address] Referral ID Status Reason Start Date Expiration Date V isits Requested Visits Authorized [id number] Closed Specialty Service Requested 11/24/2016 11/24/2017 1 1 Reason for Visit * Consultation (Routine) - Closed Specialty Diagnoses / Procedures Referred By Contac t Referred To Contact Orthopaedics Diagnoses leg pain,chronic, right Emelyn Easley MD [address] [place] [address] [facility] [address] [place] [phone] Referral ID Status Reason Start Date Expiration Date V isits Requested Visits Authorized [id number] Closed Consult, Test & Treat [facility] 08/26/2016 08/26/2017 1 1 Encounter Details Date Type Department Care Team (Late st Contact Info) Description 11/24/2016 1:00 PM EDT Office [place] [address] Josse Mckee MD [facility] [place] [address] Traumatic brain injury, without LOC, sequela; Acquired [...] NAME: Tana Cavazos AGE: 21 y.o.. MR#: [id number] ? DATE OF VISIT: 11/24/2016 ? STAFF: [...] PM EST Office [place] [address] Hollie Ambriz MD [facility] [place] [address] Scheduled Referrals Name Type Priority Associated Diagnoses [...] pelvis cannot be evaluated. Josse Mckee MD [facility] [place] ORDERABLES documented in this encounter Visit [...] scoliosis documented in this encounter Care Teams Painter Touch Up Relationship Specialty Start Date End Date Emelyn Easley MD [address] [place] [address] PCP - General Family Medicine 08/26/16 05/26/18 documented as of this encounter
--- OUTSIDE RECORDS SUMMARY | 2024-01-05 18:26 | XMS_ITS | Encounter Summary ---
Author Organization [facility] [place] [address] Care Team Providers Care Critical Care Nurse Specialist Name Role Phone Naina Lindsey MD Primary Care Provider [phone] Reason for Referral * Consultation (Routine) - Specialty Diagnoses / Procedures Referred By Contac t Referred To Contact Physical Medicine and Rehab Diagnoses Acquired dysplasia of hip, unspecified laterality Traumatic brain injury, without LOC, sequela Ty Woods MD [facility] [place] [address] Alek Loaiza MD [address] [place] [address] [address] [place] [address] Referral ID Status Reason Start Date Expiration Date V isits Requested Visits Authorized [id number] Consult, Test & Treat 07/29/2016 01/25/2017 1 1 Encounter Details Date Type Department Care Team (Late st Contact Info) Description 07/29/2016 [place] [address] Ty Woods MD [facility] [place] [address] Acquired dysplasia of hip, unspecified laterality; Traumatic [...] PM EST Office [place] [address] Hollie Ambriz MD [facility] [place] [address] Scheduled Referrals Name Type Priority Associated Diagnoses Orde r Schedule Referral to Orthopaedics Outpatient Referral Routine Acquired dysplasia of hip, unspecified laterality Traumatic Brain Injury, Without Loc, Sequela Ordered: 07/29/2016 documented as of this encounter Visit Diagnoses Diagnosis Acquired dysplasia of hip, unspecified laterality Traumatic brain injury, without LOC, sequela documented in this encounter Care Teams Critical Care Nurse Specialist Relationship Specialty Start Date End Date Naina Lindsey MD [address] [place] [address] PCP - General 03/19/10 08/25/16 documented as of this encounter
--- OUTSIDE RECORDS SUMMARY | 2024-01-05 18:26 | XMS_ITS | Encounter Summary ---
Author Organization [facility] Benjamin [facility] [place] [address] Care Team Providers Care Engineering Document Control Clerk Name Role Phone Naina Lindsey MD Primary Care Provider [phone] Encounter Details Date Type Department Care Team (Late st Contact Info) Description 06/19/2014 External Results [place] [address] Donnell Dotson MD [facility] [address] [facility] [place], [place] [id number] Social History Tobacco Use Types Packs/Day Years [...] PM EST Office [place] [address] Hollie Ambriz MD [facility] [place] [address] documented as of this encounter Procedures Procedure Name Priority Date/Time Associated Diagnosis Comments IMPLANTABLE DEVICES SCAN Routine 05/03/2014 3:51 PM EST documented in this encounter Visit Diagnoses Not on filedocumented in this encounter Care Teams Engineering Document Control Clerk Relationship Specialty Start Date End Date Naina Lindsey MD [address] [place] [address] PCP - General 03/19/10 08/25/16 documented as of this encounter
--- OUTSIDE RECORDS SUMMARY | 2024-01-05 18:26 | XMS_ITS | Encounter Summary ---
Author Organization [facility] Address [facility] [place] [address] Care Team Providers Care Unishear Operator Name Role Phone Emelyn Easley MD Primary Care Provider [phone] Encounter Details Date Type Department Care Team (Late st Contact Info) Description 01/20/2017 Telephone Orthopaedics at [facility] [place] [address] Vanda Carter PA [facility] [place] [address] Social History Tobacco Use Types Packs/Day Years [...] EST Office Visit [place] [address] Hollie Ambriz MD [facility] [place] [address] documented as of this encounter Visit Diagnoses Not on filedocumented in this encounter Care Teams Unishear Operator Relationship Specialty Start Date End Date Emelyn Easley MD [address] [place] [address] PCP - General Family Medicine 08/26/16 05/26/18 documented as of this encounter
--- OUTSIDE RECORDS SUMMARY | 2024-01-05 18:26 | XMS_ITS | Encounter Summary ---
[place] [address] Care Team Providers Care Berry Grower Name Role Phone Emelyn Easley MD Primary Care Provider Reason for Visit * Auth/Cert Specialty Diagnoses / Procedures Referred By Contac t Referred To Contact Diagnoses TBI, W/O LOC, SEQUEIA/ACQUIRED DYSPLASIA OF HIP Procedures PRO ANESTH, CAT/MRI SCAN, RADIATN THERAPY BONE SCAN Referral ID Status Reason Start Date Expiration Date Visits Re quested Visits Authorized [id number] 1 1 Encounter Details Date Type Department Care Team (Late st Contact Info) Description 12/30/2016 3:00 PM EDT - 12/30/2016 4:28 [place] [address] RESOURCE, ANESTHESIA-KRISTIN None BONE SCAN Social History [...] 11:40; without success they called for another refinery superintendent. I paged at 12:17; person answering says [...] PM EST Office Visit [place] [address] Hollie Ambriz MD [facility] [place] [address] documented as of this encounter Procedures Procedure Name Priority Date/Time Associated Diagnosis Comments BONE SCAN 12/30/2016 11:00 PM EDT TBI, W/O LOC, SEQUEIA/ACQUIRED DYSPLASIA OF HIP documented in this encounter Visit Diagnoses Not on filedocumented in this encounter Care Teams Berry Grower Relationship Specialty Start Date End Date Emelyn Easley MD [address] [place] [address] PCP - General Family Medicine 08/26/16 05/26/18 documented as of this encounter
--- OUTSIDE RECORDS SUMMARY | 2024-01-05 18:26 | XMS_ITS | Encounter Summary ---
Author Organization [facility] Address [facility] [place] [address] Care Team Providers Care Java Developer Analyst Name Role Phone Naina Lindsey MD Primary Care Provider [phone] Encounter Details Date Type Department Care Team (Late st Contact Info) Description 11/09/2014 9:31 AM EDT - 11/09/2014 11:00 AM EDT Hospital Encounter XRay at [address] [place] [address] Scoliosis Social History Tobacco Use Types Packs/Day [...] PM EST Office Visit [place] [address] Hollie Ambriz MD [facility] [place] [address] documented as of this encounter Procedures Procedure [...] idiopathic documented in this encounter Care Teams Java Developer Analyst Relationship Specialty Start Date End Date Naina Lindsey MD [address] [place] [address] PCP - General 03/19/10 08/25/16 documented as of this encounter
--- OUTSIDE RECORDS SUMMARY | 2024-01-05 18:26 | XMS_ITS | Encounter Summary ---
Author Organization [facility] Address [facility] [place] [address] Care Team Providers Care Brush Holder Assembler Name Role Phone Emelyn Easley MD Primary Care Provider [phone] Reason for Visit * Reason Comments Follow Up Surgery Bilateral Girdle sto ne procedure Encounter Details Date Type Department Care Team (Late st Contact Info) Description 03/06/2017 11:40 AM EST Office Visit Orthopaed[place] [address] Josse Mckee MD [facility] [place] [address] Acquired dysplasia of hip, unspecified laterality; Traumatic [...] NAME: Tana Cavazos AGE: 21 y.o.. MR#: [id number] ? DATE OF VISIT: 03/06/2017 ? STAFF: [...] at that time, done with physiatry at [facility]. Dr. Mckee gave them his card today and they will call if they would like to schedule these injections. Otherwise, they can follow up in 1 year with X-rays of the hips and spine. documented in this encounter Plan of Treatment Upcoming Encounters Date Type Department Care Team (Late st Contact Info) Description 06/02/2024 12:30 PM EST Office Visit Infectious [place] [address] Hollie Ambriz MD [facility] [place] [address] documented as of this encounter Visit Diagnoses Diagnosis Acquired dysplasia of hip, unspecified laterality Traumatic brain injury, without loss of consciousness, sequela documented in this encounter Care Teams Brush Holder Assembler Relationship Specialty Start Date End Date Emelyn Easley MD [address] [place] [address] PCP - General Family Medicine 08/26/16 05/26/18 documented as of this encounter
--- OUTSIDE RECORDS SUMMARY | 2024-01-05 18:26 | XMS_ITS | Encounter Summary ---
Author Organization [facility] [place] [address] Care Team Providers Care Marine Firer Name Role Phone Emelyn Easley MD Primary Care Provider Encounter Details Date Type Department Care Team (Late st Contact Info) Description 11/17/2016 Orders [place] [address] Josse Mckee MD [facility] DR [place] [address] Neuromuscular scoliosis of lumbar region; Acquired dysplasia [...] PM EST Office [place] [address] Hollie Ambriz MD [facility] [place] [address] documented as of this encounter Results * [...] laterality documented in this encounter Care Teams Marine Firer Relationship Specialty Start Date End Date Emelyn Easley MD [address] [place] [id number] PCP - General Family Medicine 08/26/16 05/26/18 documented as of this encounter
--- OUTSIDE RECORDS SUMMARY | 2024-01-05 18:26 | XMS_ITS | Encounter Summary ---
Author Organization [facility] [address] Care Team Providers Care International Project Engineer Name Role Phone Naina Lindsey MD Primary Care Provider [phone] Reason for Visit * Reason Comments Follow-up HCK / REMOVE DEE Hayes Encounter Details Date Type Department Care Team (Latest Contact Info) Description 06/08/2014 4:30 PM EST Office [place] [address] Alek Sinha, SEARCH MARKETING SPECIALIST [facility] [place] [address] Spasticity; Postoperative wound infection, subsequent encounter Discharge [...] this encounter Progress Notes * Alek Sinha, SEARCH MARKETING SPECIALIST - 06/23/2014 3:02 PM EST Florin Cavazos was seen today in the pediatric neurosurgery clinic for a post-op follow up visit. Tana is a 18 year old girl with a history of increased tone which was managed with intrathecal baclofen. She underwent placement of an intrathecal baclofen pump in 2007 at the [facility]. Mother feels that the pump has not [...] Office [place] [address] Hollie Ambriz MD [facility] [place] [address] documented as of this encounter Visit Diagnoses Diagnosis Spasticity Abnormal involuntary movements Postoperative wound infection, subsequent encounter documented in this encounter Care Teams International Project Engineer Relationship Specialty Start Date End Date Naina Lindsey MD [address] [place] [address] PCP - General 03/19/10 08/25/16 documented as of this encounter
--- OUTSIDE RECORDS SUMMARY | 2024-01-05 18:26 | XMS_ITS | Encounter Summary ---
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, SEQUEIA/ACQUIRED DYSPLASIA OF HIP Procedures PRO ANESTH, CAT/MRI SCAN, RADIATN THERAPY BONE SCAN Referral ID Status Reason Start Date Expiration Date Visits Re quested Visits Authorized [id number] 1 1 Encounter Details Date Type Department Care Team (Latest Contact Info) Description 12/30/2016 2:57 PM EDT - 12/30/2016 11:59 PM EDT Hospital Encounter [place] [address] Josse Mckee MD [facility] DR [place] [address] Discharge Disposition: Home Social History Tobacco Use [...] PM EST Office [place] [address] Hollie Ambriz MD [facility] [place] [address] documented as of this encounter Procedures Procedure [...] on filedocumented in this encounter Care Teams Agronomy Instructor Relationship Specialty Start Date End Date Emelyn Easley MD [address] [place] [address] PCP - General Family Medicine 08/26/16 05/26/18 documented as of this encounter
--- OUTSIDE RECORDS SUMMARY | 2024-01-05 18:27 | XMS_ITS | Encounter Summary ---
[place] [address] Care Team Providers Care Cleaner Wall Name Role Phone Naina Lindsey MD Primary Care Provider [phone] Encounter Details Date Type Department Care Team (Late st Contact Info) Description 05/26/2014 4:16 PM EST Anesthesia [place] [id number] Buster Rajput MD [facility] [place] [address] Yury Kruse MD [facility] [place] [address] Anesthesia Record Procedure Summary Procedure Name Responsible [...] Gloria Salmon RN 06/24/22 1417 by Kristel nOeil RN Incision 05/20/14; back; vertical; I&D of [...] FEMORAL HEAD, BILATERAL performed by BARRERA OLIVER On license of [facility] OR ??? Apply of hip casts, two legs 08/15/2010 CAST APPLICATION, HIP SPICA, BOTH LEGS performed by BARRERA OLIVER at [facility] OR ??? Removal deep implant 08/15/2010 REMOVAL IMPLANT, DEEP, BRUNO performed by BARRERA OLIVER at [facility] OR ??? Osteotomy femur shaft/supracondy 08/15/2010 ??OSTEOTOMY, FEMUR SHAFT OR SUPRACONDYLAR W/O FIXATION performed by BARRERA OLIVER at [facility] OR ??? Remove spinal canal catheter N/A 05/11/2014 REMOVAL OF INTRATHECAL OR EPIDURAL CATHETER performed by Jamaal Samuel MD at [facility] OR ??? Remove infusn device/pump N/A 05/11/2014 REMOVAL OF SPINE INFUSION PUMP performed by Jamaal Samuel MD at [facility] OR ? ? I&d, post spine, lumb/sacr/lumbosac N/A 05/20/2014 @I & D, OPEN, DEEP ABSCESS, LUMBAR, SACRAL, LUMBOSACRAL performed by Freddy Isbell MD at [facility] OR ??? Repr, dural/csf leak, not req laminectomy N/A 05/20/2014 @REPAIR DURAL\CSF LEAK,NOT REQUIRING LAMINECTOMY performed by Freddy Isbell MD at [facility] OR History Substance Use Topics ??? Smoking status: Never Smoker ??? Smokeless tobacco: Never Used Comment: NO SMOKERS IN THE HOME ??? Alcohol Use: No History Drug Use No Allergies Allergen Reactions ??? Fluoxetine Other (See Comments) HIVES, HEART RACES ??? Tegaderm [Transparent Dressings] Itching and Dermatitis Please use [id number] Medications: MAR and/or home medications have been [...] EST Office Visit [place] [address] Hollie Ambriz MD [facility] [place] [address] documented as of this encounter Visit Diagnoses [...] mg documented in this encounter Care Teams Cleaner Wall Relationship Specialty Start Date End Date Naina Lindsey MD [address] [place] [address] PCP - General 03/19/10 08/25/16 documented as of this encounter
--- OUTSIDE RECORDS SUMMARY | 2024-01-05 18:27 | XMS_ITS | Encounter Summary ---
Author Organization [facility] Address [facility] [place] [address] Care Team Providers Care Dolly Driver Name Role Phone Naina Lindsey MD Primary Care Provider [phone] Reason for Visit * Reason Comments Post-op Problem Encounter Details Date Type Department Care Team (Latest Contact Info) Description 05/20/2014 8:13 PM EST - 06/02/2014 4:25 PM [facility] Hospital Encounter [place] [address] Belkis Louie MD [facility] [place] [address] Freddy Burciaga MD [facility] [address] [place] [address] Jamaal Samuel MD [facility] [place] [address] Febrile illness, acute Discharge Disposition: Home with [...] Routine, Hospital Performed Vendor / contact information: [facility] Patient location post discharge: home Service requested: IV abx Start date: 05/26/2014 Responsible MD post discharge contact info: PCP Luis (Edit) Referral to Home Health - at DISCHARGE Routine, Clinic Performed Agency name and contact information: [place] Patient location post discharge: home What services are requested: Registered Nurse, Home Health Aide, Physical Therapy, Occupational Therapy Start date: 05/26/2014 Responsible MD post discharge contact info: PCP PATIENT'S LOCATION: Tana Hayes Dirk [address] [place] [phone] (home) In discussion with the attending physician, it is certified that this patient is under their care and that they, or a Nurse Practitioner,Clinical Nurse specialist or Physician Cognos Administrator who is working directly with them, had [...] Continue with therapies OT: Continue with therapies RENTAL COUNTER CLERK: Continue support HOME HEALTH CARE AGENCY: [facility]. PHONE: [phone] FAX: [phone] Start of care: 05/26/14 Please note that any additional orders needs or changes will need to be obtained from this patient's PCP: MD Coby [address] / [place] [address] All A agencies which cover the area of patient's residence have been reviewed, either verbally or in writing, and patient/family have chosen the home health care agency noted Emergency contact: After hours and weekends, call the [facility] long lines operator at and ask them to page the neurosurgery resident radiation oncology nurse. documented in this encounter Medications at [...] (AVS) and given to the patient or claims service representative. 6) If VNA was ordered, [...] 0.9% 50 mL Mini-Bag Plus 2 g JshrynsrtfdC4Y ??? baclofen 10 mg Oral Nightly ??? [...] elevated HR this am S: Kenneth Valiente. [facility], [id number] singing ABCs and counting along with stretches [...] pt to d/chome with support and continued PT/OT/CLAIMS SPECIALIST/VNA services. Staff communication/Mobility Recommendations: Pt. Would benefit [...] timed interventions: 30 minutes for TherEx-F Pager: [phone] Mary Joe OT Occupational Therapy Rehabilitation Department * Isra Perez RN - 06/01/2014 2:43 PM EST Patient Name: Tana Shelton Patient Age: 18 y.o. Birthdate: 1995 Admit date: 05/20/2014 Attending Physician: Jamaal Samuel MD OFFICE OF CARE MANAGEMENT Farhana Perez RN Pager: [phone] CLINICAL TOUR BUS DRIVER PROGRESS NOTE e-DH reviewed. Report received from DEMI Sanchez. Patient continues to require acute inpatient care for the treatment of infection. Patient remains on triple abx while awaiting final cultures. [facility] and [facility] have been referred to for discharge. Met with patient's mother at bedside. Mom had multiple questions the other day regarding equipment for home. Mattress for hospital bed was ordered and delivered to home from [facility]. Tomasa Sling was ordered and is to be delivered by [facility] when it ships to [facility] warehouse. TLSO brace to be fitted by [facility]. Mom also inquired about a new motorized wheelchair. Called [facility] in [place] to see if patient would qualify, left message with Oliver- the risk consulting treasury director for [facility]. Patient will need a assessment [...] 0.9% 50 mL Mini-Bag Plus 2 g YlffedrkaztA7C ??? baclofen 10 mg Oral Nightly ??? [...] has recovered and I can review the [facility] records and films * Natividad Esqueda, [...] family in a single story home in [place], [place]. Pt's mother reports that there is no stair requirement, and that she has all necessary equipment. Stairs: 0 without a rail to enter Baseline Mobility: Completely dependent for all care, home nursing VNA services 3x/week, school-based PT/OT/CLAIMS SPECIALIST, pt due to receive a communication device [...] than in previous treatment session, counting withthis auto service writer during stretching Objective: Patient seen [...] internal rotators, adductors ?? Pt helped this auto service writer with opposite UE when performing [...] session, playing with toys, playfully tricking this auto service writer when counting during passive stretching, [...] exercise Natividad Esqueda PT, DPT 05/31/2014 Pager: [phone] Physical Therapy Inpatient Rehabilitation Department * Nathalie [...] OF CARE MANAGEMENT Farhana Perez RN Pager: [phone] CLINICAL TOUR BUS DRIVER PROGRESS NOTE e-DH reviewed. Report received from DEMI Sanchez. Patient continues to require acute inpatient care for the treatment of infection. Patient is on triple abx. Patient needs a new mattress for her hospital bed at home. Patient's mother would like order placed with [employer]. Order pended and booking sent via [employer] Plan: CRC will continue to follow for [...] pt to d/chome with support and continued PT/OT/CLAIMS SPECIALIST/VNA services. Staff communication/Mobility Recommendations: Pt. Would benefit [...] timed interventions: 45 minutes for TherEx Pager: [phone] Mary Joe OT Occupational Therapy Rehabilitation Department [...] 0.9% 50 mL Mini-Bag Plus 2 g PvnuomkaytnQ0V ??? baclofen 10 mg Oral Nightly ??? [...] OF CARE MANAGEMENT Farhana Perez RN Pager: [phone] CLINICAL TOUR BUS DRIVER PROGRESS NOTE e-DH reviewed. Report received [...] as pt becomes available. Please contact this auto service writer with any further questions or concerns. Thank you. Pager: [phone] Mary Joe, OTR/L Occupational Therapy Inpatient Rehabilitation [...] family in a single story home in [place], [place]. Pt's mother reports that there is no stair requirement, and that she has all necessary equipment. Stairs: 0 without a rail to enter Baseline Mobility: Completely dependent for all care, home nursing VNA services 3x/week, school-based PT/OT/CLAIMS SPECIALIST, pt due to receive a communication device [...] pt very smiley today, counting with this auto service writer during stretching, showing off her [...] exercise Natividad Esqueda, PT, DPT 05/29/2014 Pager: [phone] Physical Therapy Inpatient Rehabilitation Department * Wai [...] not hesitate to page us on pager [phone] with further questions or concerns. Patient discussed [...] 0.9% 50 mL Mini-Bag Plus 2 g JwymerfnjayU3H ??? baclofen 10 mg Oral Nightly ??? [...] 0.9% 50 mL Mini-Bag Plus 2 g VfcurfhhblmU9U ??? baclofen 10 mg Oral Nightly ??? [...] CRC received call from EUNICE Hair, from [place], [place] or Asking for status as they will follow her after discharge for IV antibiotic treatment. She will need an OPAT order faxed to above agency when she is ready for discharge as well as administration teaching for home. When ready for discharge, [facility] PHONE: [phone] FAX: [phone] will also need to be updated. Referral had been made by previous CRC. Covering pager #[phone] for pager #[phone]. * Darius Maguire T - 05/27/2014 8:23 [...] 0.9% 50 mL Mini-Bag Plus 2 g DopesalagicD2V ??? baclofen 10 mg Oral Nightly ??? [...] Dressing clean and dry Wound without fluctuance [address] Assessment/Plan:: 18 y.o. female s/p removal [...] family in a single story home in [place], [place]. Pt's mother reports that there is no stair requirement, and that she has all necessary equipment. Stairs: 0 without a rail to enter Baseline Mobility: Completely dependent for all care, home nursing VNA services 3x/week, school-based PT/OT/CLAIMS SPECIALIST, pt due to receive a communication device [...] Natividad J Cavagnaro, PT, DPT 05/26/2014 Pager: [phone] Physical Therapy Inpatient Rehabilitation Department * Freddy Burciaga MD - 05/26/2014 6:27 AM EST Neurosurgery - Inpatient Progress Note ID: Tana Shelton, 18 y.o. female s/p removal of retained hardware, washout of infection 05/20 POD 6 Interval Hx: -ALEKSANDRA -Neurologically stable Objective: Medications: Scheduled Meds: ??? cefTAZidime (FORTAZ) 2g vial attach to sodium chloride 0.9% 50 mL Mini-Bag Plus 2 g BvzenzyvfjsL8Y ??? baclofen 10 mg Oral Nightly ??? [...] (05/26) or when appropriate. Please page this auto service writer if you have any questions, thank you. Natividad Esqueda PT Pager #[phone] Physical Therapy Inpatient Rehabilitation * Mary Joe, [...] pt to d/chome with support and continued PT/OT/CLAIMS SPECIALIST/VNA services. Spoke to CRC this am about [...] timed interventions: 27 minutes for TherEx Pager: [phone] Mary Joe OT Occupational Therapy Rehabilitation Department [...] 0.9% 50 mL Mini-Bag Plus 2 g YgijvhgcpjfH1H ??? baclofen 10 mg Oral Nightly ??? [...] of Care Management Farhana Perez RN Pager: [phone] Clinical Automatic Driller And Reamer Home IV Antibiotic Therapy Referral Note. Report received from NeuroSurgery Team that patient will require continued home IV antibiotic therapy after discharge from the hospital. Met with patient/family to discuss vendor and visiting nurse choices for home IV antibiotic therapy. Reviewed Home Infusion Vendors and Home Health Agencies that serve patient???s address and accept patient???s insurance. Home Health Agency: Patient requested referral to [facility] PHONE: [phone] FAX: [phone]. Referrals sent via edischarge. Home Infusion Vendor: Patient requested referral to [place], [place] [phone] or Fax: . Referrals sent via edischarge. [...] 0.9% 50 mL Mini-Bag Plus 2 g DayghsilljxD4V ??? baclofen 10 mg Oral Nightly ??? [...] 0.9% 50 mL Mini-Bag Plus 2 g ObileffuhkgG9E ??? baclofen 10 mg Oral Nightly ??? [...] PM EST Office of Care Management Clinical Automatic Driller And Reamer Patient Name: Tana Shelton : 1995, 18 [...] None on File (x) HEALTH /PRESCRIPTION COVERAGE: [place] [facility] - [facility] CURRENT HOME/COMMUNITY SERVICES/EQUIPMENT: DME: [place] [facility] bed, wheelchair, tomasa lift, shower chair. Home Health Agency: [facility] PRIMARY CARE PHYSICIAN: NAINA LINDSEY MD [phone] POTENTIAL DISCHARGE NEEDS: Resume vna visits. Mother stated that she has [place] vna - RN and Aide currently. Waiting to confirm this and pt needs. Might need home IV antibx. TRANSPORTATION @ D/C: family PLAN: CRC will continue to monitor progress, follow for continuity of care and assist with discharge planning while hospitalized Lesly Jesus RN Office of Care Management Clinical Automatic Driller And Reamer Covering for Farhana Chris [phone] Pager [phone] * Yandy Dasilva, PharmD - 05/22/2014 9:46 AM EST Clinical Pharmacist Note-Vanc Tana Barlowrd [id number] 1995 Tana Barlowrd is a 18 y.o. [...] have. Alternately, during off-hours you may call [phone] to contact a pharmacist. Yandy Dasilva, PHARMD Pager [phone] * Freddy Burciaga MD - 05/22/2014 6:59 [...] AND Vancomycin, trough AND Vancomycin Level - [facility] Order Reminder, oxyCODONE Vitals: Temp: [36.8 ??C [...] Clinically does not seem to be of MANUFACTURING QUALITY MANAGER origin. Continue triple antibiotics. ID consult. [...] given to [facility]. Transferred to [place] [phone] with transport services, RN + family members. Please call Anurag ICU-RN at [phone] with regards to any questions post transfer. [...] mcL Appearance UA Hazy (*) Clear Spec [place] UA 1.026 1.002 - 1.030 Color UA [...] SHELTON Ordered By: CELSONIKITETO Freddy DAILEY MR#: [id number] LOC: OR /Sex: 1995 (18 years), Female PROCEDURE: Tissue Culture SOURCE: Back COLLECTED: 05/20/2014 20:20 FREE TEXT SOURCE: Lumbar Wound Culture STARTED: 05/20/2014 22:13 STAINS / PREPARATIONS Gram Stain Report Verified:05/20/2014 22:28 Few White Blood Cells seen No microorganisms seen. TISSUE CULTURE Result Value Ref Range Tissue Culture Value: Patient Name: TANA SHELTON Ordered By: Freddy BURCIAGA MR#: [id number] LOC: OR /Sex: 1995 (18 years), Female [...] II initiated 0040: Report given to Jenn FINANCE CLERK info reviewed/questions answered, pt ready for transfer [...] to the planned procedure. Hand Hygiene: The television script writer did perform hand hygiene prior to line insertion. Catheter type: PICC Lot number: [id number] Procedure Technique: Skin was prepped with chlorhexidine. [...] warm and was flushed. They called the radiation oncology nurse neurosurgeon, who advised that they come [...] HEAD, BILATERAL performed by YAS OLIVER [facility] MAIN OR ??? Apply of hip casts, two legs 08/15/2010 CAST APPLICATION, HIP SPICA, BOTH LEGS performed by YAS OLIVER at [facility] MAIN OR ??? Removal deep implant 08/15/2010 REMOVAL IMPLANT, DEEP, BRUNO performed by YAS OLIVER at [facility] MAIN OR ??? Osteotomy femur shaft/supracondy 08/15/2010 ??OSTEOTOMY, FEMUR SHAFT OR SUPRACONDYLAR W/O FIXATION performed by YAS OLIVER at [facility] MAIN OR ??? Remove spinal canal catheter N/A 05/11/2014 REMOVAL OF INTRATHECAL OR EPIDURAL CATHETER performed by Jamaal Samuel MD at [facility] MAIN OR ??? Remove infusn device/pump N/A 05/11/2014 REMOVAL OF SPINE INFUSION PUMP performed by Jamaal Samuel MD at [facility] MAIN OR Medications: No current [...] mcL Appearance UA Hazy (*) Clear Spec [place] UA 1.026 1.002 - 1.030 Color UA [...] 05/21/14 0127 Lilli Esquivel MD Resident 05/21/14 0631 Associated attestation - Belkis Louie MD - [...] Routine, Hospital Performed Vendor / contact information: [facility] Patient location post discharge: home Service requested: IV abx Start date: 05/26/2014 Responsible MD post discharge contact info: PCP New (Edit) Referral to Home Health - at DISCHARGE Routine, Clinic Performed Agency name and contact information: [place] Patient location post discharge: home What services are requested: Registered Nurse, Home Health Aide, Physical Therapy, Occupational Therapy Start date: 06/06/2014 Responsible MD post discharge contact info: PCP PATIENT'S LOCATION: Tana Freddy Shelton [address] [place] [phone] (home) In discussion with the attending physician, it is certified that this patient is under their care and that they, or a Nurse Practitioner,Clinical Nurse specialist or Physician Cognos Administrator who is working directly with them, had [...] Continue with therapies OT: Continue with therapies RENTAL COUNTER CLERK: Continue support HOME HEALTH CARE AGENCY: [facility] PHONE: [phone] FAX: [phone] Start of care: 05/26/14 Please note that any additional orders needs or changes will need to be obtained from this patient's PCP: NAINA LINDSEY MD [address] / [place] [address] All VNA agencies which cover the area of patient's residence have been reviewed, either verbally or in writing, and patient/family have chosen the home health care agency noted Emergency contact: After hours and weekends, call the [facility] long lines operator at and ask them to page the neurosurgery resident radiation oncology nurse. * Plan of Care - Margot [...] yo. Supervision: Continuous; Moraima. Fannie at home vacuum spindle sander at bedside this morning ; Mom arrived [...] Health Knowledge, Opportunity for Enhanced (Adult, NICU, Barker, Obstetrics, Pediatric) Goal: Identify Signs and Symptoms [...] Health Knowledge, Opportunity for Enhanced (Adult, NICU, Barker, Obstetrics, Pediatric) Goal: Identify Signs and Symptoms [...] AM EST Clinical Pharmacist Note-Vancomycin Tana Shelton [id number] 1995 Tana Shelton is a 18 y.o. [...] have. Alternately, during off-hours you may call [phone] to contact a pharmacist. Elmer Tobin PHARMD Pager [phone] * Plan of Care - Leana Hicks [...] Operative Note Patient Name: Tana Shelton : [id number] MR#: [id number] Case Date: 05/26/2014 Surgeon: Surgeon(s) and Role: [...] (Interventions Implemented as Appropriate) 05/22/14 0634 05/24/14 3634 Discharge Needs Assessment Concerns to be Addressed [...] Health Knowledge, Opportunity for Enhanced (Adult, NICU, Barker, Obstetrics, Pediatric) Knowledgeable about Health Subject/Topic achieves [...] (Interventions Implemented as Appropriate) 05/22/14 0634 05/24/14 8385 Discharge Needs Assessment Concerns to be Addressed [...] [facility] ??? Apply of hip casts, two legs 08/15/2010 CAST APPLICATION, HIP SPICA, BOTH LEGS performed by YAS OLIVER at [facility] OR ??? Removal deep implant 08/15/2010 REMOVAL IMPLANT, DEEP, BRUNO performed by YAS OLIVER at [facility] OR ??? Osteotomy femur shaft/supracondy 08/15/2010 ??OSTEOTOMY, FEMUR SHAFT OR SUPRACONDYLAR W/O FIXATION performed by YAS OLIEVR at [facility] OR ??? Remove spinal canal catheter N/A 05/11/2014 REMOVAL OF INTRATHECAL OR EPIDURAL CATHETER performed by Jamaal Samuel MD at [facility] OR ??? Remove infusn device/pump N/A 05/11/2014 REMOVAL OF SPINE INFUSION PUMP performed by Jamaal Samuel MD at [facility] OR ? ? I&d, post spine, lumb/sacr/lumbosac N/A 05/20/2014 @I & D, OPEN, DEEP ABSCESS, LUMBAR, SACRAL, LUMBOSACRAL performed by Freddy Burciaga MD at [facility] OR ??? Repr, dural/csf leak, not req laminectomy N/A 05/20/2014 @REPAIR DURAL\CSF LEAK,NOT REQUIRING LAMINECTOMY performed by Freddy Burciaga MD at [facility] MAIN OR Social and Developmental History: Patient lives with her family in a single level home in [place], [place]. Pt's mother reports that their home [...] has an older sister who lives in [place] and 3 younger brothers. She likes to [...] RN and mom assist. Feeding: per mom: RAMONA assist for use of utensils; not observed [...] to d/c home with support and continued PT/OT/CLAIMS SPECIALIST/VNA services. Spoke with CRC about consultfor new [...] you for this occupational therapy consult. Pager: [phone] Mary Joe OT 05/24/2014 Occupational Therapy Rehabilitation [...] HEAD, BILATERAL performed by YAS OLIVER [facility] MAIN OR ??? Apply of hip casts, two legs 08/15/2010 CAST APPLICATION, HIP SPICA, BOTH LEGS performed by YAS OLIVER at [facility] MAIN OR ??? Removal deep implant 08/15/2010 REMOVAL IMPLANT, DEEP, BRUNO performed by YAS OLIVER at [facility] MAIN OR ??? Osteotomy femur shaft/supracondy 08/15/2010 ??OSTEOTOMY, FEMUR SHAFT OR SUPRACONDYLAR W/O FIXATION performed by YAS OLIVER at [facility] MAIN OR ??? Remove spinal canal catheter N/A 05/11/2014 REMOVAL OF INTRATHECAL OR EPIDURAL CATHETER performed by Jamaal Samuel MD at [facility] MAIN OR ??? Remove infusn device/pump N/A 05/11/2014 REMOVAL OF SPINE INFUSION PUMP performed by Jamaal Samuel MD at [facility] MAIN OR ? ? I&d, post spine, lumb/sacr/lumbosac N/A 05/20/2014 @I & D, OPEN, DEEP ABSCESS, LUMBAR, SACRAL, LUMBOSACRAL performed by Freddy Burciaga MD at [facility] MAIN OR ??? Repr, dural/csf leak, not req laminectomy N/A 05/20/2014 @REPAIR DURAL\CSF LEAK,NOT REQUIRING LAMINECTOMY performed by Freddy Burciaga MD at [facility] MAIN OR Social History: Patient lives with her family in a single story home in [place], [place]. Pt's mother reports that there is no stair requirement, and that she has all necessary equipment. Stairs: 0 without a rail to enter Baseline Mobility: Completely dependent for all care, home nursing VNA services 3x/week, school-based PT/OT/CLAIMS SPECIALIST, pt due to receive a communication device [...] appropriate and joins in counting with this auto service writer while stretching Objective: Pt seen [...] minutes Natividad Esqueda PT, DPT 05/24/2014 Pager: [phone] Physical Therapy Inpatient Rehabilitation Department * Plan [...] based on it's ability to penetrate the MANUFACTURING QUALITY MANAGER. We need todiscuss whether to pursue [...] to 40 mEq. One dose of IV xibqlzvhd24 mEq administered per orders. Re-check of K [...] placement of baclofen pump in 2007 in [place]. Due to lack of efficacy the baclofen [...] and Lipase were normal. Per her daycare tool and die maker/designer, may be related to administration of oxycodone as this has been issue in the past. Cannotexclude component of baclofen withdrawal, but less likely. No current concern for acute MANUFACTURING QUALITY MANAGER process. - Serial exams. Ensure daily [...] although it may not have the best MANUFACTURING QUALITY MANAGER penetration unless meninges are actually inflamed. [...] fluid only. MD called for antiemetic and GA tylenol. Zofran given when order receivedand med [...] Operative Note Patient Name: Tana Shelton : [id number] MR#: [id number] Case Date: 05/20/2014 - 05/21/2014 Surgeon: Surgeon(s) [...] HEAD, BILATERAL performed by YAS OLIVER [facility] MAIN OR ??? Apply of hip casts, two legs 08/15/2010 CAST APPLICATION, HIP SPICA, BOTH LEGS performed by YAS OLIVER at [facility] MAIN OR ??? Removal deep implant 08/15/2010 REMOVAL IMPLANT, DEEP, BRUNO performed by YAS OLIVER at [facility] MAIN OR ??? Osteotomy femur shaft/supracondy 08/15/2010 ??OSTEOTOMY, FEMUR SHAFT OR SUPRACONDYLAR W/O FIXATION performed by YAS OLIVER at [facility] MAIN OR ??? Remove spinal canal catheter N/A 05/11/2014 REMOVAL OF INTRATHECAL OR EPIDURAL CATHETER performed by Jamaal Samuel MD at [facility] MAIN OR ??? Remove infusn device/pump N/A 05/11/2014 REMOVAL OF SPINE INFUSION PUMP performed by Jamaal Samuel MD at [facility] MAIN OR No family history [...] mcL Appearance UA Hazy (*) Clear Spec [place] UA 1.026 1.002 - 1.030 Color UA Yellow Yellow RBC UA 32 (*) 0 - 4 /HPF WBC UA 5 0 - 5 /HPF Bacteria UA Rare (*) None /HPF Squam Epith UA 1 <=4 /HPF Trans Epith UA 1 <=1 /HPF Amorph Adina UA Rare (*) None /HPF TISSUE CULTURE Result Value Range Tissue Culture Value: Patient Name: TAAN SHELTON Ordered By: Freddy BURCIAGA MR#: [id number] LOC: OR /Sex: 1995 (18 years), Female PROCEDURE: Tissue Culture SOURCE: Back COLLECTED: 05/20/2014 20:20 FREE TEXT SOURCE: Lumbar Wound Culture STARTED: 05/20/2014 22:13 STAINS / PREPARATIONS Gram Stain Report Verified:05/20/2014 22:28 Few White Blood Cells seen No microorganisms seen. TISSUE CULTURE Result Value Range Tissue Culture Value: Patient Name: TANA SHELTON Ordered By: Freddy BURCIAGA MR#: [id number] LOC: OR /Sex: 1995 (18 years), Female [...] PM EST Office [place] [address] Hollie Ambriz MD [facility] [place] [address] Pending Results Name Type Priority Associated Diagnoses [...] REQUIRING LAMINECTOMY Routine 05/20/2014 10:22 PM EST SUBPOENA SERVER CULTURE Routine 5 10:01 PM EST ANAEROBIC [...] Metabolic Panel (non-fasting) (06/02/2014 5:55 AM EST) [facility] Signature Glucose 75 60 - 199 mg/dL [...] the following links into your internet browser. [email or web address] Blood specimen (specimen) 06/02/2014 5:55 AM EST 06/02/2014 6:09 AM EST Narrative Resulting Agency Comment Spec In Lab S Alek Burciaga MD CHEMISTRY ORDERABLES Performing Organization Address [facility]/ZIP Co de Phone Number [facility] [facility] * (ABNORMAL) Sedimentation rate (06/01/2014 12:40 PM EST) Sedimentation Rate Automated 46(H) 0 - 20 mm/hr [facility] Blood specimen (specimen) Venous Draw / Unknown 06/01/2014 12:40 PM EST 06/01/2014 12:48 PM EST Narrative Resulting Agency Comment Spec In Lab S Alek Burciaga MD HEMATOLOGY ORDERABLE S Performing Organization Address [facility] de Phone Number [facility] * High Sensitivity CRP (06/01/2014 12:40 PM EST) C-Reactive Protein High Sensitivity 15.4 mg/L [facility] Comment: Interpretations: 1) For accurate cardiac [...] MD HEMATOLOGY ORDERABLE S Performing Organization Address City/[facility]/ZIP Co de Phone Number CERNER MILLENNIUM [...] S Alek Burciaga MD HEMATOLOGY ORDERABLE S [facility] * (ABNORMAL) Basic Metabolic Panel (non-fasting) (06/01/2014 12:40 PM EST) [facility] Glucose 95 60 - 199 mg/dL CERNER [...] the following links into your internet browser. [email or web address] Blood specimen (specimen) 06/01/2014 12:40 PM EST [...] S Alek Burciaga MD HEMATOLOGY ORDERABLE S [facility] * (ABNORMAL) Basic Metabolic Panel [...] the following links into your internet browser. [email or web address] Blood specimen (specimen) 05/30/2014 6:50 AM EST [...] Metabolic Panel (non-fasting) (05/29/2014 7:13 AM EST) [facility] Glucose 83 60 - 199 mg/dL CERNER [...] the following links into your internet browser. [email or web address] Blood specimen (specimen) 05/29/2014 7:13 AM EST [...] MD HEMATOLOGY ORDERABLE S Performing Organization Address City/[facility]/ZIP Co de Phone Number CERALIN TOMASENNIUM [...] Lab S Alek Burciaga MD [facility]LES [facility] * ([facility]NORMAL) Basic Metabolic Panel (non-fasting) [...] the following links into your internet browser. [email or web address] Blood specimen (specimen) 05/28/2014 9:00 AM EST [...] the following links into your internet browser. [email or web address] Blood specimen (specimen) 05/27/2014 5:30 AM EST 05/27/2014 5:39 AM EST Narrative Resulting Agency Comment Spec In Lab S Alek Burciaga MD CHEMISTRY ORDERABLES [facility] * Anaerobic Culture (05/26/2014 5:30 PM EST) Anaerobic Culture ? Patient Name: TANA SHELTON ? Ordered By: Freddy BURCIAGA ? MR#: [id number] ?LOC: ??[place] ? /Sex: ??1995 (18 years), [...] ? Ordered By: Freddy BURCIAGA ? MR#: [id number] ?LOC: ??[place] ? /Sex: ??1995 (18 years), [...] S ? Patient: TANA SHELTON ? MR#: [id number] ? S=Susceptible ??I=Intermediate ??R=Resistant ??NA=Not Applicable ? [...] ? Ordered By: Freddy BURCIAGA ? MR#: [id number] ?LOC: ??[place] ? /Sex: ??1995 (18 years), [...] Burciaga MD MICROBIOLOGY - GENER AL ORDERABLES [facility] * Tissue culture (05/26/2014 5:30 PM EST) Tissue Culture ? Patient Name: TANA SHELTON ? Ordered By: Freddy BURCIAGA ? MR#: [id number] ?LOC: ??[place] ? /Sex: ??1995 (18 years), [...] plates. ? Patient: SHELTONTANA Freddy ? MR#: [id number] ? SUSCEPTIBILITY RESULTS ? Coagulase negative Staphylococcus [...] (1) ? Gentamicin is not appropriate for [place]-therapy. ? (2) ? Penicillin resistant, Nafcillin susceptible [...] ? Ordered By: Freddy BURCIAGA ? MR#: [id number] ?LOC: ??[place] ? /Sex: ??1995 (18 years), [...] ? Ordered By: Freddy BURCIAGA ? MR#: [id number] ?LOC: ??[place] ? /Sex: ??1995 (18 years), [...] BANK LAB ORDER MYRANDA Performing Organization Address [facility] Co de Phone Number LINDA BASHIR * ABO/Rh Typing (05/26/2014 12:40 PM EST) ABORH Type O Pos LINDA BASHIR Blood specimen (specimen) 05/26/2014 12:40 PM EST 05/26/2014 12:59 PM EST Narrative Resulting Agency Comment Spec In Lab S Alek Burciaga MD BLOOD BANK LAB ORDER MYRANDA Performing Organization Address [facility] Co de Phone Number LINDA BASHIR * [...] the following links into your internet browser. [email or web address] Blood specimen (specimen) 05/26/2014 4:15 AM EST 05/26/2014 4:35 AM EST Narrative Resulting Agency Comment Spec In Lab S Alek Burciaga MD CHEMISTRY ORDERABLES [facility]ASH[facility] * Place PICC Line: Contact Vascular Access Page [phone] (05/25/2014 4:01 PM EST) Narrative [place] [...] to the planned procedure. Hand Hygiene: The television script writer did perform hand hygiene prior to line insertion. Catheter type: PICC Lot number: [id number] Procedure Technique: Skin was prepped with chlorhexidine. [...] focal. COMPARISON: Scoliosis radiographs from 12/16/2011 FINDINGS: Manufacturing Analyst views demonstrate severe rightward scoliotic deformity centered [...] No gross collections in the cervical spine. Manufacturing Analyst coronal image 8 of series 8 demonstrates [...] inf,focal. COMPARISON: Scoliosis radiographs from 12/16/2011 FINDINGS: Manufacturing Analyst views demonstrate severe rightward scoliotic deformity centered [...] abnormalities. No grosscollections in the cervical spine. Manufacturing Analyst coronal image 8 of series 8 demonstrates [...] Narrative 05/25/2014 4:10 PM EST See accession #[id number] for dictation of this study. This report was reviewed by Andrade Rebolledo MD at 05/25/2014 4:05 PM Film and interpretation reviewed by the attending Procedure Note Andrade Roth MD - 05/25/2014 See accession #[id number] for dictation of this study. This report was reviewed by Andrade Rebolledo MD at 05/25/2014 4:05 PM Film and interpretation reviewed by the attending Alek Dumont [place] [facility] MRI ORDERABLES * Differential, Automated [...] MD HEMATOLOGY ORDERABLE S Performing Organization Address [facility] de Phone Number CERALIN TOMASENNIUM [...] MD HEMATOLOGY ORDERABLE S Performing Organization Address [facility] Co de Phone Number [facility]DA K[facility]PI[facility] * [...] the following links into your internet browser. [email or web address] Blood specimen (specimen) 05/25/2014 5:00 AM EST [...] the following links into your internet browser. [email or web address] Blood specimen (specimen) 05/24/2014 12:42 PM EST 05/24/2014 12:42 PM EST Narrative Resulting Agency Comment Spec In Lab S Alek Burciaga MD CHEMISTRY ORDERABLES Performing Organization Address [facility] de Phone Number CERALIN MILLENNIUM [...] Burciaga MD CHEMISTRY ORDERABLES Performing Organization Address [facility] de Phone Number CERALIN MILLENNIUM [...] Smith MD CHEMISTRY ORDERABLES Performing Organization Address [facility] Co de [facility] Number [facility] * Lipase (05/22/2014 12:45 PM EST) Pathologist [facility] Lipase 44 0 - 60 unit/L [facility] Blood specimen (specimen) 05/22/2014 12:45 PM EST 05/22/2014 1:03 PM EST Narrative Resulting Agency Comment Spec In Lab Lucho Smith MD CHEMISTRY ORDERABLES Performing Organization Address [facility] Phone Number [facility] * Amylase (05/22/2014 12:45 PM EST) Pathologist [facility] Amylase 89 28 - 100 unit/L [facility] Blood specimen (specimen) 05/22/2014 12:45 PM EST 05/22/2014 1:03 PM EST Narrative Resulting Agency Comment Spec In Lab Lucho Smith MD CHEMISTRY ORDERABLES Performing Organization Address [facility] Phone Number [facility] * (ABNORMAL) Comprehensive metabolic panel (non-fasting) (05/22/2014 12:45 PM EST) [facility] Glucose 81 60 - 199 mg/dL [facility] Comment:Diabetes: >=200 mg/d L plus [...] mass. Sodium 142 135 - 145 mmol/L [facility] Potassium 3.6 3.5 - 5.0 mmol/L [...] the following links into your internet browser. [email or web address] Blood specimen (specimen) 05/22/2014 12:45 PM EST 05/22/2014 1:03 PM EST Narrative Resulting Agency Comment Spec In Lab Lucho Smith MD CHEMISTRY ORDERABLES [facility] PharmaceuticalsB[facility] * Differential, Automated (05/22/2014 6:10 AM EST) [...] Platelet Volume 10.7 9.0 - 12.0 fL [facility] Blood specimen (specimen) 05/22/2014 6:10 AM EST 05/22/2014 6:22 AM EST Narrative Resulting Agency Comment Spec In Lab S Alek Burciaga MD HEMATOLOGY ORDERABLE S Performing Organization Address [facility] Co de Phone Number [facility] * Vancomycin, trough (05/22/2014 6:10 AM EST) Vancomycin, Trough 6.1 mg/L [facility] Comment: Therapeutic range for complicated infections [...] Burciaga MD CHEMISTRY ORDERABLES Performing Organization Address [facility]/ZIP Co de Phone Number [facility] * (ABNORMAL) Basic Metabolic Panel (non-fasting) (05/22/2014 6:10 AM EST) Glucose 86 60 - 199 mg/dL [facility] Comment:Diabetes: >=200 mg/d L plus symptoms Blood Urea Nitrogen 3(L) 8 - 18 mg/dL [facility] Creatinine 0.27(L) 0.70 - 1.20 mg/dL [...] the following links into your internet browser. [email or web address] Blood specimen (specimen) 05/22/2014 6:10 AM EST [...] Metabolic Panel (non-fasting) (05/21/2014 4:23 AM EST) [facility] Glucose 107 60 - 199 mg/dL CERNER [...] the following links into your internet browser. [email or web address] Blood specimen (specimen) 05/21/2014 4:23 AM EST 05/21/2014 4:38 AM EST Narrative Resulting Agency Comment Spec In Lab Freddy Burciaga MD CHEMISTRY ORDERABLES [facility] * Computer Repair Technician Culture (05/20/2014 10:01 PM EST) Computer Repair Technician Culture ? Patient Name: TANA SHELTON ? Ordered By: Freddy BURCIAGA ? MR#: [id number] ?LOC: ??[place] ? /Sex: ??1995 (18 years), ? Female ? PROCEDURE: Computer Repair Technician Culture ?SOURCE: Other ? COLLECTED: 05/20/2014 22:01 ? BODY SITE: Other ? STARTED: 05/20/2014 22:22 ?FREE TEXT SOURCE: retained baclafin pump tubing ? FINAL REPORT ? Final Report ? Verified:05/24/2014 10:28 ? Pseudomonas aeruginosa isolated ? Susceptibilities previously reported ? PRELIMINARY REPORT ? Preliminary Report ? Verified:05/23/2014 11:27 ? Pseudomonas aeruginosa isolated ? Susceptibilities previously reported ? [facility] Specimen of unknown material (specimen) TOPOGRAPHY UNKNOWN / Unknown 05/20/2014 10:01 PM EST 05/20/2014 10:21 PM EST Comment:RETAINED BACLAFIN PU MP TUBING Narrative Resulting Agency Comment Spec In Lab Freddy Burciaga MD MICROBIOLOGY - GENER AL ORDERABLES [facility] * Anaerobic Culture (05/20/2014 9:25 PM EST) Anaerobic Culture ? Patient Name: TANA SHELTON ? Ordered By: Freddy BURCIAGA ? MR#: [id number] ?LOC: ??PA ? /Sex: ??1995 (18 years), [...] ? Ordered By: Freddy BURCIAGA ? MR#: [id number] ?LOC: ??[place] ? /Sex: ??1995 (18 years), [...] ? Patient: CRISTO SHELTONLIE S ? MR#: [id number] ? S=Susceptible ??I=Intermediate ??R=Resistant ??NA=Not Applicable ? [...] ? Ordered By: Freddy BURCIAGA ? MR#: [id number] ?LOC: ??[place] ? /Sex: ??1995 (18 years), [...] ? Ordered By: Freddy BURCIAGA ? MR#: [id number] ?LOC: ??[place] ? /Sex: ??1995 (18 years), [...] ? Ordered By: BELKIS LOUIE ? MR#: [id number] ?LOC: ??[place] ? /Sex: ??1995 (18 years), ? Female ? PROCEDURE: Urine Culture ?SOURCE: [facility] ? COLLECTED: 05/20/2014 18:46 ? [...] Urine Dipstick Hazy(A) Clear [facility] Specific [place] Urine Automated 1.026 1.002 - 1.030 CERNER [...] Louie MD URINE ORDERABLES Performing Organization Address [facility] de Phone Number LINDA BASHIR * L-Lactate2 Whole Blood (05/20/2014 6:17 PM EST) Lactate WB 1.6 0.5 - 2.2 mmol/L [facility] Blood specimen (specimen) 05/20/2014 6:17 PM EST 05/20/2014 6:17 PM EST Belkis Louie MD CHEMISTRY ORDERABLES Performing Organization Address [facility] de Phone Number LINDA BASHIR * Blood culture (05/20/2014 6:00 PM EST) Blood Culture ? Patient Name: TANA SHELTON ? Ordered By: BELKIS LOUIE ? MR#: [id number] ?LOC: ??[place] ? /Sex: ??1995 (18 years), [...] MICROBIOLOGY - BLOOD ORDERABLES Performing Organization Address [facility] Co de Phone Number [facility] * Green Tube HOLD (05/20/2014 5:15 PM EST) Green Hold Sample in lab. [facility]AS[facility] Blood specimen (specimen) Venous Draw / Unknown 05/20/2014 5:15 PM EST 05/20/2014 5:32 PM EST Belkis Louie MD CHEMISTRY ORDERABLES Performing Organization Address [facility] de Phone Number [facility] TOMASENNIUM [...] ? Ordered By: BELKIS LOUIE ? MR#: [id number] ?LOC: ??[place] ? /Sex: ??1995 (18 years), [...] MICROBIOLOGY - BLOOD ORDERABLES Performing Organization Address [facility] Co de Phone Number [facility] * Glucose, random (05/20/2014 5:15 PM EST) Glucose 81 60 - 199 mg/dL [facility] Comment:Diabetes: >=200 mg/d L plus symptoms Blood specimen (specimen) 05/20/2014 5:15 PM EST 05/20/2014 5:31 PM EST Narrative Resulting Agency Comment Spec In Lab Belkis Louie MD CHEMISTRY ORDERABLES Performing Organization Address [facility] de Phone Number [facility] * (ABNORMAL) Creatinine (05/20/2014 5:15 PM EST) Creatinine 0.37(L) 0.70 - 1.20 mg/dL [facility] Comment: Please note that the pediatric reference intervals supplied above were not validated at [facility]. Results from pediatric patients should be interpreted in conjunction to the patient's age, height and muscle mass. Est Glomerular Filtration Rate >60 >=60 [facility] Comment: This estimated GFR (eGFR) value [...] the following links into your internet browser. [email or web address] Blood specimen (specimen) 05/20/2014 5:15 PM EST [...] Louie MD CHEMISTRY ORDERABLES Performing Organization Address [facility] Co de Phone Number [facility] * [...] Narrative Resulting Agency Comment Spec In Lab Beliks Louie MD CHEMISTRY ORDERABLES Performing Organization Address [facility]/State/ZIP Co de Phone Number LINDA [...] Nely Boss, Indication for (Active or Suspected): MANUFACTURING QUALITY MANAGER/Meningitis Given 06/02/2014 5:57 AM EST 2 g 100 mL/hr Given 06/01/2014 10:41 PM EST 2 g 100 mL/hr Given 06/01/2014 2:10 PM EST 2 g 100 mL/hr cefTRIAXone (ROCEPHIN) 1g in dextrose 5% 50mL 1 g, Intravenous, ONCE, 1 dose, On 05/20/14 at 2315, Administer over 30 Minutes, Indication for (Active or Suspected): MANUFACTURING QUALITY MANAGER/Meningitis Given 05/21/2014 1:32 AM EST 1 g 100 mL/hr cefTRIAXone (ROCEPHIN) 2g in dextrose 5% 50mL 2,000 mg (2 g), Intravenous, EVERY 12 HOURS, First dose on 05/20/14 at 1000, Until Discontinued, Administer over 30 Minutes, Indication for (Active or Suspected): for MANUFACTURING QUALITY MANAGER/Meningitis Given 05/22/2014 10:59 AM EST 2,000 mg [...] 30 Minutes, Indication for (Active or Suspected): MANUFACTURING QUALITY MANAGER/Meningitis Given 05/22/2014 5:40 AM EST 500 mg [...] Nely Boss, Indication for (Active or Suspected): MANUFACTURING QUALITY MANAGER/Meningitis 0616 (Given - Provider: Linsey Mcintyre [...] Routine documented in this encounter Care Teams Dolly Driver Relationship Specialty Start Date End Date Naina Lindsey MD [address] [place] [address] PCP - General 03/19/10 08/25/16 documented as of this encounter
--- OUTSIDE RECORDS SUMMARY | 2024-01-05 18:28 | XMS_ITS | Encounter Summary ---
Author Organization [facility] [place] [address] Care Team Providers Care Shipping Specialist Name Role Phone Naina Lindsey MD Primary Care Provider [phone] Reason for Visit * Reason Comments Post-op Problem Encounter Details Date Type Department Care Team (Late st Contact Info) Description 05/26/2014 4:30 PM EST - 05/26/2014 7:03 PM EST [place] [address] Freddy Burciaga MD [facility] [address] [place] [address] @I & D, OPEN, DEEP ABSCESS, LUMBAR, [...] Routine, Hospital Performed Vendor / contact information: [facility] Patient location post discharge: home Service requested: IV abx Start date: 05/26/2014 Responsible MD post discharge contact info: WILL Smith (Edit) Referral to Home Health - at DISCHARGE Routine, Clinic Performed Agency name and contact information: [facility] Patient location post discharge: home What services are requested: Registered Nurse, Home Health Aide, Physical Therapy, Occupational Therapy Start date: 05/26/2014 Responsible MD post discharge contact info: PCP PATIENT'S LOCATION: Tana Shelton [address] [place] [phone] (home) In discussion with the attending physician, it is certified that this patient is under their care and that they, or a Nurse Practitioner,Clinical Nurse specialist or Physician Spray Technician who is working directly with them, had [...] Continue with therapies OT: Continue with therapies SWEATBAND SEPARATOR: Continue support HOME HEALTH CARE AGENCY: [facility] Health Care Agency [employer] PHONE: [phone] FAX: [phone] Start of care: 05/26/14 Please note that any additional orders needs or changes will need to be obtained from this patient's PCP: MD Coby BRAGG DR / [facility] [id number] All VNA agencies which cover the area of patient's residence have been reviewed, either verbally or in writing, and patient/family have chosen the home health care agency noted Emergency contact: After hours and weekends, call the [facility] bindery machine operator at and ask them to page the neurosurgery resident sales administration manager. documented in this encounter Medications at [...] (AVS) and given to the patient or media sales representative. 6) If VNA was ordered, [...] 0.9% 50 mL Mini-Bag Plus 2 g SxgqnjugztqJ6R ??? baclofen 10 mg Oral Nightly ??? levonorgestrel-ethinyl estradiol 1 tablet Oral Daily ??? polyethylene glycol 17 g Oral Daily ??? sodium chloride 0.9 % 5 mL Intravenous BID ??? diaZEPam 5 mg Oral BID Continuous Infusions: ??? sodium chloride 0.9% with potassium chloride 20 mEq 50 mL/hr (06/01/14 0255) PRN Meds:acetaminophen OR acetaminophen, flu vaccine (36 [...] S: Kenneth Rocco. [facility], [id number] singing ABCs and counting along with stretches [...] pt to d/chome with support and continued PT/OT/GRINDER SET UP OPERATOR UNIVERSAL/VNA services. Staff communication/Mobility Recommendations: Pt. Would benefit [...] timed interventions: 30 minutes for TherEx-F Pager: [phone] Mary Joe, OT Occupational Therapy Rehabilitation Department * Isra Perez RN - 06/01/2014 2:43 PM EST Patient Name: Tana Shelton Patient Age: 18 y.o. Birthdate: 1995 Admit date: 05/20/2014 Attending Physician: Jamaal Samuel MD OFFICE OF CARE MANAGEMENT Farhana Perez RN Pager: [phone] CLINICAL STOCK CLERK SELF SERVICE STORE PROGRESS NOTE e-DH reviewed. Report received from DEMI Sanchez. Patient continues to require acute inpatient care for the treatment of infection. Patient remains on triple abx while awaiting final cultures. [facility] and [facility] have been referred to for discharge. Met with patient's mother at bedside. Mom had multiple questions the other day regarding equipment for home. Mattress for hospital bed was ordered and delivered to home from [facility]. Tomasa Sling was ordered and is to be delivered by [facility] [facility] [employer] when it ships to [facility] warehouse. TLSO brace to be fitted by [employer]. Mom also inquired about a new motorized wheelchair. Called [facility] in [place] to see if patient would qualify, left message with Oliver- the coordinator of rehabilitation services for [facility]. Patient will need a assessment and lot [...] 05/20 POD 10 POD 5 Interval Hx: -LAEKSANDRA -Neurologically stable - Afebrile Objective: Medications: Scheduled Meds: ??? nystatin Topical BID ??? docusate sodium 100 mg Oral BID ??? ciprofloxacin (CIPRO) oral liquid 250 mg Oral BID ??? vancomycin 1 g Intravenous Q8H ??? cefTAZidime (FORTAZ) 2g vial attach to sodium chloride 0.9% 50 mL Mini-Bag Plus 2 g VknzvkvwateO0X ??? baclofen 10 mg Oral Nightly ??? [...] - ID c/s Associated attestation - Jamaal Samule MD - 06/01/2014 12:39 PM EST Tana [...] has recovered and I can review the [facility] records and films * Natividad Esqueda, [...] family in a single story home in [place], [place]. Pt's mother reports that there is no stair requirement, and that she has all necessary equipment. Stairs: 0 without a rail to enter Baseline Mobility: Completely dependent for all care, home nursing VNA services 3x/week, school-based PT/OT/GRINDER SET UP OPERATOR UNIVERSAL, pt due to receive a communication device [...] than in previous treatment session, counting withthis sign writer hand during stretching Objective: Patient seen for 45 [...] internal rotators, adductors ?? Pt helped this sign writer hand with opposite UE when performing stretching as [...] session, playing with toys, playfully tricking this sign writer hand when counting during passive stretching, and helping [...] exercise Natividad Esqueda PT, DPT 05/31/2014 Pager: [phone] Physical Therapy Inpatient Rehabilitation Department * Nathalie [...] OF CARE MANAGEMENT Farhana Perez RN Pager: [phone] CLINICAL STOCK CLERK SELF SERVICE STORE PROGRESS NOTE e-DH reviewed. Report received from DEMI Sanchez. Patient continues to require acute inpatient care for the treatment of infection. Patient is on triple abx. Patient needs a new mattress for her hospital bed at home. Patient's mother would like order placed with [employer]. Order pended and booking sent via [employer] Plan: CRC will continue to follow for [...] pt to d/chome with support and continued PT/OT/GRINDER SET UP OPERATOR UNIVERSAL/VNA services. Staff communication/Mobility Recommendations: Pt. Would benefit [...] timed interventions: 45 minutes for TherEx Pager: [phone] Mary Joe OT Occupational Therapy Rehabilitation Department [...] 0.9% 50 mL Mini-Bag Plus 2 g PgnthxruaoqG4T ??? baclofen 10 mg Oral Nightly ??? [...] OF CARE MANAGEMENT Farhana Perez RN Pager: [phone] CLINICAL STOCK CLERK SELF SERVICE STORE PROGRESS NOTE e-DH reviewed. Report received from [...] as pt becomes available. Please contact this sign writer hand with any further questions or concerns. Thank you. Pager: [phone] Mary Joe OTR/L Occupational Therapy Inpatient Rehabilitation [...] family in a single story home in [place], [place]. Pt's mother reports that there is no stair requirement, and that she has all necessary equipment. Stairs: 0 without a rail to enter Baseline Mobility: Completely dependent for all care, home nursing VNA services 3x/week, school-based PT/OT/GRINDER SET UP OPERATOR UNIVERSAL, pt due to receive a communication device [...] pt very smiley today, counting with this sign writer hand during stretching, showing off her favorite toys [...] exercise Natividad Esqueda PT, DPT 05/29/2014 Pager: [phone] Physical Therapy Inpatient Rehabilitation Department * Wai [...] not hesitate to page us on pager [phone] with further questions or concerns. Patient discussed with Dr. Wai Crabtree. Dimple Messina MD Fellow, Infectious Disease 05/29/2014 ID Staff: Discussed with Dr. Messina. Agree with current regimen. This will be a very difficult regimen at [facility] some further discussion is needed. We [...] 0.9% 50 mL Mini-Bag Plus 2 g OlqvnkbpibrD7U ??? baclofen 10 mg Oral Nightly ??? [...] 0.9% 50 mL Mini-Bag Plus 2 g WtbbhihdsrjZ0L ??? baclofen 10 mg Oral Nightly ??? [...] CRC received call from EUNICE Hair, from [place], [place] or Asking for status as they will follow her after discharge for IV antibiotic treatment. She will need an OPAT order faxed to above agency when she is ready for discharge as well as administration teaching for home. When ready for discharge, [facility] [employer] PHONE: [phone] FAX: [phone] will also need to be updated. Referral had been made by previous CRC. Covering pager #[phone] for pager #[phone]. * Darius Maguire T - 05/27/2014 8:23 [...] 0.9% 50 mL Mini-Bag Plus 2 g YnjmtcfyzswP4R ??? baclofen 10 mg Oral Nightly ??? [...] clean and dry Wound without fluctuance [address] Assessment/Plan:: 18 y.o. female s/p removal [...] family in a single story home in [place], [place]. Pt's mother reports that there is no stair requirement, and that she has all necessary equipment. Stairs: 0 without a rail to enter Baseline Mobility: Completely dependent for all care, home nursing VNA services 3x/week, school-based PT/OT/GRINDER SET UP OPERATOR UNIVERSAL, pt due to receive a communication device [...] exercise Natividad Esqueda PT, DPT 05/26/2014 Pager: [phone] Physical Therapy Inpatient Rehabilitation Department * Freddy Burciaga MD - 05/26/2014 6:27 AM EST Neurosurgery - Inpatient Progress Note ID: Tana Shelton, 18 y.o. female s/p removal of retained hardware, washout of infection 05/20 POD 6 Interval Hx: -ALEKSANDRA -Neurologically stable Objective: Medications: Scheduled Meds: ??? cefTAZidime (FORTAZ) 2g vial attach to sodium chloride 0.9% 50 mL Mini-Bag Plus 2 g VhwuviolwrqS1B ??? baclofen 10 mg Oral Nightly ??? [...] (05/26) or when appropriate. Please page this sign writer hand if you have any questions, thank you. Natividad Esqueda PT Pager #[phone] Physical Therapy Inpatient Rehabilitation * Mary Joe, [...] pt to d/chome with support and continued PT/OT/GRINDER SET UP OPERATOR UNIVERSAL/VNA services. Spoke to CRC this about thoracic [...] timed interventions: 27 minutes for TherEx Pager: [phone] Mary Joe OT Occupational Therapy Rehabilitation Department [...] 0.9% 50 mL Mini-Bag Plus 2 g EykkvqscjijN3P ??? baclofen 10 mg Oral Nightly ??? [...] of Care Management Farhana Perez RN Pager: [phone] Clinical Heavy Equipment Supervisor Home IV Antibiotic Therapy Referral Note. Report received from NeuroSurgery Team that patient will require continued home IV antibiotic therapy after discharge from the hospital. Met with patient/family to discuss vendor and visiting nurse choices for home IV antibiotic therapy. Reviewed Home Infusion Vendors and Home Health Agencies that serve patient???s address and accept patient???s insurance. Home Health Agency: Patient requested referral to [facility] Health Care Agency [employer] PHONE: [phone] FAX: [phone]. Referrals sent via [employer]ischarge. Home Infusion Vendor: Patient requested referral to [place], [place] [phone] or Fax: . Referrals sent via edischarge. [...] 0.9% 50 mL Mini-Bag Plus 2 g ZvjmgmmetvfC1E ??? baclofen 10 mg Oral Nightly ??? [...] 0.9% 50 mL Mini-Bag Plus 2 g ZxcoubaxxkcP9P ??? baclofen 10 mg Oral Nightly ??? [...] PM EST Office of Care Management Clinical Heavy Equipment Supervisor Patient Name: Tana Shelton : 1995, 18 [...] /PRESCRIPTION COVERAGE: [facility] CURRENT HOME/COMMUNITY SERVICES/EQUIPMENT: DME: [facility] bed, wheelchair, tomasa lift, shower chair. Home Health Agency: [facility] PRIMARY CARE PHYSICIAN: NAINA LINDSEY MD [phone] POTENTIAL DISCHARGE NEEDS: Resume vna visits. Mother stated that she has [facility] - RN and Aide currently. Waiting to confirm this and pt needs. Might need home IV antibx. TRANSPORTATION @ D/C: family PLAN: CRC will continue to monitor progress, follow for continuity of care and assist with discharge planning while hospitalized Lesly Jesus RN Office of Care Management Clinical Heavy Equipment Supervisor Covering for Farhana Chris [phone] Pager [phone] * Yandy Dasilva, PharmD - 05/22/2014 9:46 AM EST Clinical Pharmacist Note-Vanc Tana S Dirk [id number] 1995 Tana Barlowrd is a 18 y.o. [...] have. Alternately, during off-hours you may call [phone] to contact a pharmacist. Yandy Dasilva PHARMBenjamin Pager [phone] * Freddy uBrciaga MD - 05/22/2014 6:59 AM EST Neurosurgery [...] Clinically does not seem to be of INTAKE RN origin. Continue triple antibiotics. ID consult. Cultures [...] given to Diana RN Peds. Transferred to [place] [address] with transport services, RN + family members. Please call Anurag ICU-RN at [phone] with regards to any questions post transfer. [...] mcL Appearance UA Hazy (*) Clear Spec [place] UA 1.026 1.002 - 1.030 Color UA [...] TANA SHELTON Ordered By: Freddy BURCIAGA MR#: [id number] LOC: OR /Sex: 1995 (18 years), Female PROCEDURE: Tissue Culture SOURCE: Back COLLECTED: 05/20/2014 20:20 FREE TEXT SOURCE: Lumbar Wound Culture STARTED: 05/20/2014 22:13 STAINS / PREPARATIONS Gram Stain Report Verified:05/20/2014 22:28 Few White Blood Cells seen No microorganisms seen. TISSUE CULTURE Result Value Ref Range Tissue Culture Value: Patient Name: TANA SHELTON Ordered By: EVITAFreddy IRENE MR#: [id number] LOC: OR /Sex: 1995 (18 years), Female [...] II initiated 0040: Report given to Jenn MACHINE LEAD BURNER info reviewed/questions answered, pt ready for transfer [...] to the planned procedure. Hand Hygiene: The last inserter did perform hand hygiene prior to line insertion. Catheter type: PICC Lot number: [id number] Procedure Technique: Skin was prepped with chlorhexidine. [...] warm and was flushed. They called the sales administration manager neurosurgeon, who advised that they come [...] BILATERAL performed by YAS OLIVER [facility] MAIN OR ??? Apply of hip casts, two legs 08/15/2010 CAST APPLICATION, HIP SPICA, BOTH LEGS performed by YAS OLIVER at [facility] MAIN OR ??? Removal deep implant 08/15/2010 REMOVAL IMPLANT, DEEP, BRUNO performed by YAS OLIVER at [facility] MAIN OR ??? Osteotomy femur shaft/supracondy 08/15/2010 ??OSTEOTOMY, FEMUR SHAFT OR SUPRACONDYLAR W/O FIXATION performed by YAS OLIVER at [facility] MAIN OR ??? Remove spinal canal catheter N/A 05/11/2014 REMOVAL OF INTRATHECAL OR EPIDURAL CATHETER performed by Jamaal Samuel MD at [facility] MAIN OR ??? Remove infusn device/pump N/A 05/11/2014 REMOVAL OF SPINE INFUSION PUMP performed by Jamaal Samuel MD at [facility] MAIN OR Medications: No current facility-administered [...] stepfather Tobacco exposure:No Day care/year in school: [employer] Physical Exam: Vitals: Patient Vitals [...] mcL Appearance UA Hazy (*) Clear Spec [place] UA 1.026 1.002 - 1.030 Color UA [...] intrathecal baclofen pump in 2007 at the [facility]. Mother feels that the pump [...] Size requested: twin bed Vendor Name/Contact information: Gordon Jens New (Edit) Referral for Outpatient Antibiotics Routine, Hospital Performed Vendor / contact information: [facility] Patient location post discharge: home Service requested: IV abx Start date: 05/26/2014 Responsible MD post discharge contact info: PCP New (Edit) Referral to Home Health - at DISCHARGE Routine, Clinic Performed Agency name and contact information: [facility] Patient location post discharge: home What services are requested: Registered Nurse, Home Health Aide, Physical Therapy, Occupational Therapy Start date: 06/06/2014 Responsible MD post discharge contact info: PCP PATIENT'S LOCATION: Tana Shelton [address] [place] [phone] (home) In discussion with the attending physician, it is certified that this patient is under their care and that they, or a Nurse Practitioner,Clinical Nurse specialist or Physician Spray Technician who is working directly with them, had [...] Continue with therapies OT: Continue with therapies SWEATBAND SEPARATOR: Continue support HOME HEALTH CARE AGENCY: [facility] PHONE: [phone] FAX: [phone] Start of care: 05/26/14 Please note that any additional orders needs or changes will need to be obtained from this patient's PCP: MD Coby BRAGG DR / [place] [address] All VNA agencies which cover the area of patient's residence have been reviewed, either verbally or in writing, and patient/family have chosen the home health care agency noted Emergency contact: After hours and weekends, call the [facility] bindery machine operator at and ask them to page the neurosurgery resident sales administration manager. * Plan of Care - Margot [...] Health Knowledge, Opportunity for Enhanced (Adult, NICU, [place], Obstetrics, Pediatric) Goal: Identify Signs and Symptoms [...] yo. Supervision: Continuous; Moraima. Fannie at home retail selling floor leader at bedside this morning ; Mom arrived [...] Health Knowledge, Opportunity for Enhanced (Adult, NICU, [place], Obstetrics, Pediatric) Goal: Identify Signs and Symptoms [...] (Interventions Implemented as Appropriate) 05/25/14 0527 05/26/14 7465 Plan of Care Review Plan of Care [...] AM EST Clinical Pharmacist Note-Vancomycin Tana Shelton [id number] 1995 Tana Shelton is a 18 y.o. [...] contact a pharmacist. Elmer Tobin, [place] Pager [phone] * Plan of Care - Leana Hicks [...] Outcome: Ongoing (Interventions Implemented as Appropriate) 05/27/14 7619 Infection, Risk/Actual (Adult, Obstetrics) Infection Prevention/Resolution/Control making progress toward outcome Problem: Fall/Trauma/Injury Risk (Pediatric) Goal: Identify Signs and Symptoms and Related Risk Factors Signs and symptoms and related risk factors are identified upon initiation of Human Response Clinical Practice Guideline (CPG) Outcome: Outcome (s) achieved Date Met: 05/27/14 05/22/14202905/25/14 768 Fall/Trauma/Injury Risk Personal Related Risk Factors (Fall/Trauma/Injury Risk) gait/mobility problems/weakness -- Physiological Related Risk Factors (Fall/Trauma/Injury Risk) -- developmental disability;incontinence;neurologic alteration;neuromuscular alteration Treatment Related Related Risk Factors (Fall/Trauma/Injury Risk) -- invasive/noninvasive equipment;medication;bed rest Signs and Symptoms (Fall/Trauma/Injury Risk) -- presence of risk factors Problem: Health Knowledge, Opportunity for Enhanced (Adult, NICU, [place], Obstetrics, Pediatric) Goal: Identify Signs and Symptoms [...] Burciaga MD - 05/26/2014 4:52 PM EST [facility] Operative Note Patient Name: Tana Shelton : [id number] MR#: [id number] Case Date: 05/26/2014 Surgeon: Surgeon(s) and Role: [...] (Interventions Implemented as Appropriate) 05/22/14 0634 05/24/14 0014 Discharge Needs Assessment Concerns to be Addressed [...] Health Knowledge, Opportunity for Enhanced (Adult, NICU, [place], Obstetrics, Pediatric) Goal: Identify Signs and Symptoms and Related Risk Factors Signs and symptoms and related risk factors are identified upon initiation of Human Response Clinical Practice Guideline (CPG) Outcome: Ongoing (Interventions Implemented as Appropriate) * Plan of Care - Carisa Godwin RN - 05/25/2014 8:02 AM EST Problem: Health Knowledge, Opportunity for Enhanced (Adult, NICU, [place], Obstetrics, Pediatric) Goal: Knowledgeable about Health Subject/Topic Patient will demonstrate the desired outcomes. Outcome: Outcome (s) achieved Date Met: 05/25/14 05/25/14 0802 Health Knowledge, Opportunity for Enhanced (Adult, NICU, [place], Obstetrics, Pediatric) Knowledgeable about Health Subject/Topic achieves [...] Outcome: Ongoing (Interventions Implemented as Appropriate) 05/24/14 4872 Plan of Care Review Plan of Care [...] BILATERAL performed by YAS OLIVER [facility] OR ??? Apply of hip casts, two legs 08/15/2010 CAST APPLICATION, HIP SPICA, BOTH LEGS performed by YAS OLIVER at [facility] OR ??? Removal deep implant 08/15/2010 REMOVAL IMPLANT, DEEP, BRUNO performed by YAS OLIVER at [facility] OR ??? Osteotomy femur shaft/supracondy 08/15/2010 ??OSTEOTOMY, FEMUR SHAFT OR SUPRACONDYLAR W/O FIXATION performed by YAS OLIVER at [facility] OR ??? Remove spinal canal catheter N/A 05/11/2014 REMOVAL OF INTRATHECAL OR EPIDURAL CATHETER performed by Jamaal Samuel MD at [facility] OR ??? Remove infusn device/pump N/A 05/11/2014 REMOVAL OF SPINE INFUSION PUMP performed by Jamaal Samuel MD at [facility] OR ? ? I&d, post spine, lumb/sacr/lumbosac N/A 05/20/2014 @I & D, OPEN, DEEP ABSCESS, LUMBAR, SACRAL, LUMBOSACRAL performed by Freddy Burciaga MD at [facility] OR ??? Repr, dural/csf leak, not req laminectomy N/A 05/20/2014 @REPAIR DURAL\CSF LEAK,NOT REQUIRING LAMINECTOMY performed by Freddy Burciaga MD at [facility] OR Social and Developmental History: Patient lives with her family in a single level home in [place], [place]. Pt's mother reports that their home [...] has an older sister who lives in [place] and 3 younger brothers. She likes to [...] RN and mom assist. Feeding: per mom: [employer] [employer] [place] assist for use of utensils; not observed [...] to d/c home with support and continued PT/OT/GRINDER SET UP OPERATOR UNIVERSAL/VNA services. Spoke with CRC about consultfor new [...] you for this occupational therapy consult. Pager: [phone] Mary Joe OT 05/24/2014 Occupational Therapy Rehabilitation [...] BILATERAL performed by YAS OLIVER [facility] OR ??? Apply of hip casts, two legs 08/15/2010 CAST APPLICATION, HIP SPICA, BOTH LEGS performed by YAS OLIVER at [facility] OR ??? Removal deep implant 08/15/2010 REMOVAL IMPLANT, DEEP, BRUNO performed by YAS OLIVER at [facility] OR ??? Osteotomy femur shaft/supracondy 08/15/2010 ??OSTEOTOMY, FEMUR SHAFT OR SUPRACONDYLAR W/O FIXATION performed by YSA OLIVER at [facility] OR ??? Remove spinal canal catheter N/A 05/11/2014 REMOVAL OF INTRATHECAL OR EPIDURAL CATHETER performed by Jamaal Samuel MD at [facility] OR ??? Remove infusn device/pump N/A 05/11/2014 REMOVAL OF SPINE INFUSION PUMP performed by Jamaal Samuel MD at [facility] OR ? ? I&d, post spine, lumb/sacr/lumbosac N/A 05/20/2014 @I & D, OPEN, DEEP ABSCESS, LUMBAR, SACRAL, LUMBOSACRAL performed by Freddy Burciaga MD at [facility] OR ??? Repr, dural/csf leak, not req laminectomy N/A 05/20/2014 @REPAIR DURAL\CSF LEAK,NOT REQUIRING LAMINECTOMY performed by Freddy Burciaga MD at [facility] MAIN OR Social History: Patient lives with her family in a single story home in [place], [place]. Pt's mother reports that there is no stair requirement, and that she has all necessary equipment. Stairs: 0 without a rail to enter Baseline Mobility: Completely dependent for all care, home nursing VNA services 3x/week, school-based PT/OT/GRINDER SET UP OPERATOR UNIVERSAL, pt due to receive a communication device [...] appropriate and joins in counting with this sign writer hand while stretching Objective: Pt seen for evaluation [...] minutes Natividad Esqueda PT, DPT 05/24/2014 Pager: [phone] Physical Therapy Inpatient Rehabilitation Department * Plan [...] based on it's ability to penetrate the INTAKE RN. We need todiscuss whether to pursue an [...] to 40 mEq. One dose of IV [id number] mEq administered per orders. Re-check of K [...] and Lipase were normal. Per her daycare cna caregiver, may be related to administration of oxycodone as this has been issue in the past. Cannotexclude component of baclofen withdrawal, but less likely. No current concern for acute INTAKE RN process. - Serial exams. Ensure daily BMs [...] although it may not have the best INTAKE RN penetration unless meninges are actually inflamed. - [...] PREVENTION: Assistance: Full assist, mom at bedside. housekeeping aide will be coming in today to [...] Burciaga MD - 05/21/2014 11:53 AM EST [facility] Operative Note Patient Name: Tana Shelton : [id number] MR#: [id number] Case Date: 05/20/2014 - 05/21/2014 Surgeon: Surgeon(s) [...] BILATERAL performed by YAS OLIVER [facility] MAIN OR ??? Apply of hip casts, two legs 08/15/2010 CAST APPLICATION, HIP SPICA, BOTH LEGS performed by YAS OLIVER at [facility] MAIN OR ??? Removal deep implant 08/15/2010 REMOVAL IMPLANT, DEEP, BRUNO performed by YAS OLIVER at [facility] MAIN OR ??? Osteotomy femur shaft/supracondy 08/15/2010 ??OSTEOTOMY, FEMUR SHAFT OR SUPRACONDYLAR W/O FIXATION performed by YAS OLIVER at [facility] MAIN OR ??? Remove spinal canal catheter N/A 05/11/2014 REMOVAL OF INTRATHECAL OR EPIDURAL CATHETER performed by Jamaal Samuel MD at [facility] MAIN OR ??? Remove infusn device/pump N/A 05/11/2014 REMOVAL OF SPINE INFUSION PUMP performed by Jamaal Samuel MD at [facility] MAIN OR No family history on [...] mcL Appearance UA Hazy (*) Clear Spec [place] UA 1.026 1.002 - 1.030 Color UA [...] TANA SHELTON Ordered By: Freddy BURCIAGA MR#: [id number] LOC: OR /Sex: 1995 (18 years), Female PROCEDURE: Tissue Culture SOURCE: Back COLLECTED: 05/20/2014 20:20 FREE TEXT SOURCE: Lumbar Wound Culture STARTED: 05/20/2014 22:13 STAINS / PREPARATIONS Gram Stain Report Verified:05/20/2014 22:28 Few White Blood Cells seen No microorganisms seen. TISSUE CULTURE Result Value Range Tissue Culture Value: Patient Name: TANA SHELTON Ordered By: Freddy BURCIAGA MR#: [id number] LOC: OR /Sex: 1995 (18 years), Female [...] PM EST Office Visit [place] [address] Hollie Ambriz MD [facility] [address] [place] [address] Pending Results Name Type Priority Associated Diagnoses [...] REQUIRING LAMINECTOMY Routine 05/20/2014 10:22 PM EST ARTIST AGENT CULTURE Routine 5 10:01 PM EST ANAEROBIC [...] intervals supplied above were not validated at [facility]. Results from pediatric patients should [...] the following links into your internet browser. [email or web address] Blood specimen (specimen) 06/02/2014 5:55 AM EST [...] MD HEMATOLOGY ORDERABLE S Performing Organization Address [facility] de Phone Number LINDA BASHIR * High Sensitivity CRP (06/01/2014 12:40 PM EST) Pathologist [facility] C-Reactive Protein High Sensitivity 15.4 mg/L [facility] Comment: Interpretations: 1) For accurate [...] Burciaga MD CHEMISTRY ORDERABLES Performing Organization Address [facility] Co de Phone Number LINDA BASHIR * [...] intervals supplied above were not validated at [facility]. Results from pediatric patients should [...] the following links into your internet browser. [email or web address]://[email or web address]/[email or web address] Blood specimen (specimen) 06/01/2014 12:40 PM EST [...] MD HEMATOLOGY ORDERABLE S Performing Organization Address [facility] Co de Phone Number CERALIN TOMASENNIUM * [...] MD HEMATOLOGY ORDERABLE S Performing Organization Address [facility] Co de Phone Number CERALIN KEMPIUM * (ABNORMAL) Basic Metabolic Panel (non-fasting) (05/30/2014 6:50 AM EST) Glucose 82 60 - 199 mg/dL CERNER MILLENNIUM Comment:Diabetes: >=200 mg/d L plus symptoms Blood Urea Nitrogen 4(L) 8 - 18 mg/dL CERNER MILLENNIUM Creatinine 0.29(L) 0.70 - 1.20 mg/dL CERNER MILLENNIUM Comment: Please note that the pediatric reference intervals supplied above were not validated at [facility]. Results from pediatric patients should [...] the following links into your internet browser. http://[email or web address] [email or web address]/[email or web address] Blood specimen (specimen) 05/30/2014 6:50 AM EST [...] intervals supplied above were not validated at [facility]. Results from pediatric patients should [...] the following links into your internet browser. http://[email or web address] [email or web address]://[employer]/[email or web address] Blood specimen (specimen) 05/29/2014 7:13 AM EST 05/29/2014 7:13 AM EST Narrative Resulting Agency Comment Spec In Lab S Alek Burciaga MD CHEMISTRY ORDERABLES Performing Organization Address City/[facility] Co de Phone Number CERNER MILLENNIUM * [...] MD HEMATOLOGY ORDERABLE S Performing Organization Address [facility] de Phone Number LINDA BASHIR * (ABNORMAL) [...] MD HEMATOLOGY ORDERABLE S Performing Organization Address [facility] Co de Phone Number LINDA BASHIR * [...] intervals supplied above were not validated at [facility]. Results from pediatric patients should [...] the following links into your internet browser. [email or web address]://[email or web address] [email or web address]/[email or web address]SAnkf Blood specimen (specimen) 05/28/2014 9:00 AM EST [...] S Alek Burciaga MD HEMATOLOGY ORDERABLE S [facility] * (ABNORMAL) Basic Metabolic Panel (non-fasting) (05/27/2014 5:30 AM EST) [facility] Glucose 81 60 - 199 mg/dL CERNER MILLENNIUM Comment:Diabetes: >=200 mg/d L plus symptoms Blood Urea Nitrogen 4(L) 8 - 18 mg/dL CERNER MILLENNIUM Creatinine 0.21(L) 0.70 - 1.20 mg/dL CERNER MILLENNIUM Comment: Please note that the pediatric reference intervals supplied above were not validated at [facility]. Results from pediatric patients should [...] the following links into your internet browser. http://[employer]/[email or web address] [email or web address]://[employer]/[email or web address] Blood specimen (specimen) 05/27/2014 5:30 AM EST 05/27/2014 5:39 AM EST Narrative Resulting Agency Comment Spec In Lab Freddy Burciaga MD CHEMISTRY ORDERABLES [facility] * Anaerobic Culture (05/26/2014 5:30 PM EST) Anaerobic Culture ? Patient Name: TANA SHELTON ? Ordered By: Freddy BURCIAGA ? MR#: [id number] ?LOC: ??[place] ? /Sex: ??1995 (18 years), [...] ? Ordered By: Freddy BURCIAGA ? MR#: [id number] ?LOC: ??[place] ? /Sex: ??1995 (18 years), [...] ? Patient: CRISTO SHELTONLIE S ? MR#: [id number] ? S=Susceptible ??I=Intermediate ??R=Resistant ??NA=Not Applicable ? DDS=Dose dependent-suscept ible ??NS=Non-suscepti ble ? [facility] Structure of back of trunk (body structure) 05/26/2014 5:30 PM EST 05/26/2014 5:41 PM EST Comment:LUMBAR Narrative Resulting Agency Comment Spec In Lab Freddy Burciaga MD MICROBIOLOGY - GENER AL ORDERABLES [facility] * Anaerobic Culture (05/26/2014 5:30 PM EST) Anaerobic Culture ? Patient Name: TANA SHELTON ? Ordered By: Freddy BURCIAGA ? MR#: [id number] ?LOC: ??[place] ? /Sex: ??1995 (18 years), [...] ? Ordered By: Freddy BURCIAGA ? MR#: [id number] ?LOC: ??[place] ? /Sex: ??1995 (18 years), [...] plates. ? Patient: TANA SHELTON ? MR#: [id number] ? SUSCEPTIBILITY RESULTS ? Coagulase negative Staphylococcus [...] (1) ? Gentamicin is not appropriate for [place]-therapy. ? (2) ? Penicillin resistant, Nafcillin susceptible [...] - GENER AL ORDERABLES Performing Organization Address City/State/[facility] Co de Phone Number [facility] * Anaerobic Culture (05/26/2014 5:30 PM EST) Anaerobic Culture ? Patient Name: TANA SHELTON ? Ordered By: Freddy BURCIAGA ? MR#: [id number] ?LOC: ??[place] ? /Sex: ??1995 (18 years), [...] Burciaga MD MICROBIOLOGY - GENER AL ORDERABLES [facility] * Tissue culture (05/26/2014 5:30 PM EST) Tissue Culture ? Patient Name: TANA SHELTON ? Ordered By: Freddy BURCIAGA ? MR#: [id number] ?LOC: ??[place] ? /Sex: ??1995 (18 years), [...] Screen Interp Negative CERNER MILLENNIUM Expires at [phone] on: [id number] CERNER MILLENNIUM Blood specimen (specimen) [...] prior fragment retrieval. S Alek Burciaga MD [facility] CT ORDERABLES * CT lumbar spine [...] Metabolic Panel (non-fasting) (05/26/2014 4:15 AM EST) [facility] Glucose 88 60 - 199 mg/dL CERNER MILLENNIUM Comment:Diabetes: >=200 mg/d L plus symptoms Blood Urea Nitrogen 6(L) 8 - 18 mg/dL CERNER MILLENNIUM Creatinine 0.28(L) 0.70 - 1.20 mg/dL CERNER MILLENNIUM Comment: Please note that the pediatric reference intervals supplied above were not validated at [facility]. Results from pediatric patients should [...] the following links into your internet browser. [email or web address]://[email or web address] Blood specimen (specimen) 05/26/2014 4:15 AM EST 05/26/2014 4:35 AM EST Narrative Resulting Agency Comment Spec In Lab S Alek Burciaga MD CHEMISTRY ORDERABLES LINDA BASHIR * Place PICC Line: Contact Vascular Access Page [phone] (05/25/2014 4:01 PM EST) Narrative Iron Aden [...] to the planned procedure. Hand Hygiene: The last inserter did perform hand hygiene prior to line insertion. Catheter type: PICC Lot number: [id number] Procedure Technique: Skin was prepped with chlorhexidine. [...] procedure well. No Complications. Procedure Comments: NONE Iorn Aden RN 05/25/2014 S Alek Burciaga MD [...] focal. COMPARISON: Scoliosis radiographs from 12/16/2011 FINDINGS: Vehicle Maintenance Supervisor views demonstrate severe rightward scoliotic deformity centered [...] No gross collections in the cervical spine. Vehicle Maintenance Supervisor coronal image 8 of series 8 demonstrates [...] inf,focal. COMPARISON: Scoliosis radiographs from 12/16/2011 FINDINGS: Vehicle Maintenance Supervisor views demonstrate severe rightward scoliotic deformity centered [...] abnormalities. No grosscollections in the cervical spine. Vehicle Maintenance Supervisor coronal image 8 of series 8 demonstrates [...] attending Authorizing Provider Result Bala Burciaga MD [facility] MRI ORDERABLES * MRI thoracic spine without contrast (05/25/2014 1:26 PM EST) Anatomical Region Laterality Modality T-spine Magnetic Resonan ce 05/25/2014 1:26 PM EST Narrative 05/25/2014 4:10 PM EST See accession #[id number] for dictation of this study. This report was reviewed by Andrade Rebolledo MD at 05/25/2014 4:05 PM Film and interpretation reviewed by the attending Procedure Note Andrade Roth MD - 05/25/2014 See accession #[id number] for dictation of this study. This report was reviewed by Andrade Rebolledo MD at 05/25/2014 4:05 PM Film and interpretation reviewed by the attending Alek Sinha DRYWALL TAPER HELPER IMG MRI ORDERABLES * Differential, Automated (05/25/2014 [...] S Alek uBrciaga MD HEMATOLOGY ORDERABLE S CERNER MILLENNIUM * (ABNORMAL) Basic Metabolic Panel (non-fasting) (05/25/2014 5:00 AM EST) [facility] Glucose 87 60 - 199 mg/dL CERNER MILLENNIUM Comment:Diabetes: >=200 mg/d L plus symptoms Blood Urea Nitrogen 6(L) 8 - 18 mg/dL CERNER MILLENNIUM Creatinine 0.27(L) 0.70 - 1.20 mg/dL CERNER MILLENNIUM Comment: Please note that the pediatric reference intervals supplied above were not validated at [facility]. Results from pediatric patients should [...] the following links into your internet browser. [email or web address]://[email or web address] Blood specimen (specimen) 05/25/2014 5:00 AM EST [...] MD HEMATOLOGY ORDERABLE S Performing Organization Address [facility]/ZIP Co de Phone Number [...] Metabolic Panel (non-fasting) (05/24/2014 12:42 PM EST) [facility] Glucose 78 60 - 199 mg/dL CERNER MILLENNIUM Comment:Diabetes: >=200 mg/d L plus symptoms Blood Urea Nitrogen 4(L) 8 - 18 mg/dL CERNER MILLENNIUM Comment:result rechecked-f Creatinine 0.39(L) 0.70 - 1.20 mg/dL CERNER MILLENNIUM Comment: Please note that the pediatric reference intervals supplied above were not validated at [facility]. Results from pediatric patients should [...] the following links into your internet browser. [email or web address] Blood specimen (specimen) 05/24/2014 12:42 PM EST 05/24/2014 12:42 PM EST Narrative Resulting Agency Comment Spec In Lab S Alek Burciaga MD CHEMISTRY ORDERABLES [facility] * Vancomycin, trough (05/24/2014 12:29 [...] Burciaga MD CHEMISTRY ORDERABLES Performing Organization Address [facility] de Phone Number CERALIN TOMASENNIUM * (ABNORMAL) [...] Burciaga MD CHEMISTRY ORDERABLES Performing Organization Address [facility] Co de Phone Number CERALIN MILLENNIUM * [...] Smith MD CHEMISTRY ORDERABLES Performing Organization Address [facility]/ZIP Co de Phone Number [facility] * Magnesium (05/22/2014 12:45 [...] Smith MD CHEMISTRY ORDERABLES Performing Organization Address [facility] Co de Phone Number CERNER THOMENNIUM * Amylase (05/22/2014 12:45 PM EST) Amylase 89 28 - 100 unit/L CERNER MILLENNIUM Blood specimen (specimen) 05/22/2014 12:45 PM EST 05/22/2014 1:03 PM EST Narrative Resulting Agency Comment Spec In Lab Lucho Smith MD CHEMISTRY ORDERABLES Performing Organization Address [facility] de Phone Number CERNER MILLENNIUM * (ABNORMAL) Comprehensive metabolic panel (non-fasting) (05/22/2014 12:45 PM EST) Glucose 81 60 - 199 mg/dL CERNER MILLENNIUM Comment:Diabetes: >=200 mg/d L plus symptoms Blood Urea Nitrogen 2(L) 8 - 18 mg/dL CERNER MILLENNIUM Creatinine 0.31(L) 0.70 - 1.20 mg/dL CERNER MILLENNIUM Comment: Please note that the pediatric reference intervals supplied above were not validated at [facility]. Results from pediatric patients should [...] the following links into your internet browser. [email or web address]://[email or web address] Blood specimen (specimen) 05/22/2014 12:45 PM EST 05/22/2014 1:03 PM EST Narrative Resulting Agency Comment Spec In Lab Lucho Smith MD CHEMISTRY ORDERABLES [facility] THOM[facility] * Differential, Automated (05/22/2014 [...] MD HEMATOLOGY ORDERABLE S Performing Organization Address [facility] Co de Phone Number LINDA BASHIR * [...] Burciaga MD CHEMISTRY ORDERABLES Performing Organization Address [facility] de Phone Number LINDA BASHIR * (ABNORMAL) Basic Metabolic Panel (non-fasting) (05/22/2014 6:10 AM EST) Glucose 86 60 - 199 mg/dL [facility] Comment:Diabetes: >=200 mg/d L plus symptoms Blood Urea Nitrogen 3(L) 8 - 18 mg/dL [facility] MILL[facility]UM Creatinine 0.27(L) 0.70 - 1.20 mg/dL [facility] MILLEN[facility]UM Comment: Please note that the pediatric reference intervals supplied above were not validated at [facility]. Results from pediatric patients should be interpreted in conjunction to the patient's age, height and muscle mass. Sodium 141 135 - 145 mmol/L [facility] MILLENNIUM Potassium 2.9(Criti dean) 3.5 - 5.0 [...] the following links into your internet browser. http://[employer]/[email or web address] [email or web address]/[email or web address] Blood specimen (specimen) 05/22/2014 6:10 AM EST [...] intervals supplied above were not validated at [facility]. Results from pediatric patients should [...] the following links into your internet browser. http://[employer]/[email or web address] [email or web address]://[email or web address]/[email or web address] Blood specimen (specimen) 05/21/2014 4:23 AM EST 05/21/2014 4:38 AM EST Narrative Resulting Agency Comment Spec In Lab Freddy Burciaga MD CHEMISTRY ORDERABLES [facility] * Pawn Broker Culture (05/20/2014 10:01 PM EST) Pawn Broker Culture ? Patient Name: TANA SHELTON ? Ordered By: Freddy BURCIAGA ? MR#: [id number] ?LOC: ??[place] ? /Sex: ??1995 (18 years), ? Female ? PROCEDURE: Pawn Broker Culture ?SOURCE: Other ? COLLECTED: 05/20/2014 22:01 [...] ? Ordered By: Freddy BURCIAGA ? MR#: [id number] ?LOC: ??[place] ? /Sex: ??1995 (18 years), [...] ? Ordered By: Freddy BURCIAGA ? MR#: [id number] ?LOC: ??[place] ? /Sex: ??1995 (18 years), [...] ? Patient: TANA SHELTON S ? MR#: [id number] ? S=Susceptible ??I=Intermediate ??R=Resistant ??NA=Not Applicable ? DDS=Dose dependent-suscept ible ??NS=Non-suscepti ble ? [facility]ER MILLENNIUM Structure of back of trunk (body structure) 05/20/2014 9:25 PM EST 05/20/2014 10:12 PM EST Comment:LUMBAR WOUND CULTURE #2 Narrative Resulting Agency Comment Spec In Lab S Alek Burciaga MD MICROBIOLOGY - GENER AL ORDERABLES Performing Organization Address [facility] de Phone Number LINDA BASHIR * Anaerobic Culture (05/20/2014 8:20 PM EST) Anaerobic Culture ? Patient Name: TANA SHELTON ? Ordered By: Freddy BURCIAGA ? MR#: [id number] ?LOC: ??[place] ? /Sex: ??1995 (18 years), [...] - GENER AL ORDERABLES Performing Organization Address [facility]/State/ZIP Co de Phone Number LINDA BASHIR * Tissue culture (05/20/2014 8:20 PM EST) Tissue Culture ? Patient Name: TANA SHELTON ? Ordered By: Freddy BURCIAGA ? MR#: [id number] ?LOC: ??[place] ? /Sex: ??1995 (18 years), [...] ? Ordered By: BELKIS LOUIE ? MR#: [id number] ?LOC: ??[place] ? /Sex: ??1995 (18 years), ? Female ? PROCEDURE: Urine Culture ?SOURCE: U [facility] ? COLLECTED: 05/20/2014 18:46 ? [...] - GENER AL ORDERABLES Performing Organization Address City/[facility]/ZIP [...] Urine Dipstick Hazy(A) Clear CERNER MILLENNIUM Specific [place] Urine Automated 1.026 1.002 - 1.030 CERNER [...] Louie MD URINE ORDERABLES Performing Organization Address City/[facility]/ZIP Co de Phone Number LINDA KEMPIUM * L-Lactate2 Whole Blood (05/20/2014 6:17 PM EST) Lactate WB 1.6 0.5 - 2.2 mmol/L LINDA BASHIR Blood specimen (specimen) 05/20/2014 6:17 PM EST 05/20/2014 6:17 PM EST Belkis Louie MD CHEMISTRY ORDERABLES [facility] * Blood culture (05/20/2014 6:00 PM EST) Blood Culture ? Patient Name: TANA SHELTON ? Ordered By: BELKIS LOUIE ? MR#: [id number] ?LOC: ??[place] ? /Sex: ??1995 (18 years), [...] Louie MD CHEMISTRY ORDERABLES Performing Organization Address City/[facility]/ZIP [...] ? Ordered By: BELKIS LOUIE ? MR#: [id number] ?LOC: ??[place] ? /Sex: ??1995 (18 years), [...] ? No growth at 4 days. ? [facility] Blood specimen (specimen) STRUCTURE OF LEFT HAND / Unknown 05/20/2014 5:15 PM EST 05/20/2014 7:17 PM EST Comment:HOLD UNTIL MD HULL Narrative Resulting Agency Comment Spec In Lab Belkis Louie MD MICROBIOLOGY - BLOOD ORDERABLES [facility] * Glucose, random (05/20/2014 5:15 PM EST) Glucose 81 60 - 199 mg/dL [facility] Comment:Diabetes: >=200 mg/d L plus symptoms Blood specimen (specimen) 05/20/2014 5:15 PM EST 05/20/2014 5:31 PM EST Narrative Resulting Agency Comment Spec In Lab Belkis Louie MD CHEMISTRY ORDERABLES Performing Organization Address [facility] de Phone Number [facility] * (ABNORMAL) Creatinine (05/20/2014 5:15 PM EST) Creatinine 0.37(L) 0.70 - 1.20 mg/dL [facility] Comment: Please note that the pediatric reference intervals supplied above were not validated at [facility]. Results from pediatric patients should be interpreted in conjunction to the patient's age, height and muscle mass. Est Glomerular Filtration Rate >60 >=60 [facility] Comment: This estimated GFR (eGFR) value [...] the following links into your internet browser. [email or web address]://[email or web address] Blood specimen (specimen) 05/20/2014 5:15 PM EST 05/20/2014 5:31 PM EST Narrative Resulting Agency Comment Spec In Lab Belkis Louie MD CHEMISTRY ORDERABLES Performing Organization Address [facility] de Phone Number [facility] * BUN (05/20/2014 5:15 PM EST) Blood Urea Nitrogen 9 8 - 18 mg/dL [facility] Blood specimen (specimen) 05/20/2014 5:15 PM EST 05/20/2014 5:31 PM EST Narrative Resulting Agency Comment Spec In Lab Belkis Louie MD CHEMISTRY ORDERABLES Performing Organization Address [facility] Co de Phone Number LINDA BASHIR * [...] Louie MD CHEMISTRY ORDERABLES Performing Organization Address [facility] Co de Phone Number LINDA BASHIR documented [...] Nely Boss, Indication for (Active or Suspected): INTAKE RN/Meningitis [id number] (Given - Provider: Linsey Mcintyre RN)[id number] [...] Routine documented in this encounter Care Teams Shipping Specialist Relationship Specialty Start Date End Date Naina Lindsey MD [address] [place] [address] PCP - General 03/19/10 08/25/16 documented as of this encounter
--- OUTSIDE RECORDS SUMMARY | 2024-01-05 18:28 | XMS_ITS | Encounter Summary ---
[place] [address] Care Team Providers Care Ram Press Operator Name Role Phone Naina Lindsey MD Primary Care Provider [phone] Encounter Details Date Type Department Care Team (Late st Contact Info) Description 05/20/2014 8:18 PM EST Anesthesia Event [place] [id number] Eli Alexander MD [facility] [place] [address] Neva Gómez MD [facility] [place] [address] Anesthesia Record Procedure Summary Procedure Name Responsible [...] 05/20/14; 1800; jugular vein, external left (neck); [id number]-[id number] catheter system; 18 gauge, 1 in length; [...] BILATERAL performed by BARRERA OLIVER [facility] MAIN OR ??? Apply of hip casts, two legs 08/15/2010 CAST APPLICATION, HIP SPICA, BOTH LEGS performed by BARRERA OLIVER at [facility] MAIN OR ??? Removal deep implant 08/15/2010 REMOVAL IMPLANT, DEEP, BRUNO performed by BARRERA OLIVER at [facility] MAIN OR ??? Osteotomy femur shaft/supracondy 08/15/2010 ??OSTEOTOMY, FEMUR SHAFT OR SUPRACONDYLAR W/O FIXATION performed by BARRERA OLIVER at [facility] MAIN OR ??? Remove spinal canal catheter N/A 05/11/2014 REMOVAL OF INTRATHECAL OR EPIDURAL CATHETER performed by Jamaal Samuel MD at [facility] MAIN OR ??? Remove infusn device/pump N/A 05/11/2014 REMOVAL OF SPINE INFUSION PUMP performed by Jamaal Samuel MD at [facility] MAIN OR History Substance Use Topics ??? [...] PM EST Office Visit [facility] [place] [phone] Hollie Ambriz MD [facility] [place] [address] documented as of this encounter Visit [...] mg documented in this encounter Care Teams Ram Press Operator Relationship Specialty Start Date End Date Naina Lindsey MD [address] [place] [address] PCP - General 03/19/10 08/25/16 documented as of this encounter
--- OUTSIDE RECORDS SUMMARY | 2024-01-05 18:28 | XMS_ITS | Encounter Summary ---
Author Organization [facility] [place] [address] Care Team Providers Care Network Operations Specialist Name Role Phone Naina Lindsey MD Primary Care Provider [phone] Encounter Details Date Type Department Care Team (Late st Contact Info) Description 05/23/2014 External Results [place] [phone] Unknown None Social History Tobacco Use Types [...] PM EST Office [place] [phone] Hollie Ambriz MD [facility] [place] [address] documented as of this encounter Procedures Procedure Name Priority Date/Time Associated Diagnosis Comments LABORER DRYING DEPARTMENT Routine 05/21/2014 documented in this encounter Results * learning center coordinator (05/21/2014) Unknown GENERAL SUPPLY ORDER MYRANDA documented in this encounter Visit Diagnoses Not on filedocumented in this encounter Care Teams Network Operations Specialist Relationship Specialty Start Date End Date Naina Lindsey MD [address] [place] [address] PCP - General 03/19/10 08/25/16 documented as of this encounter
--- OUTSIDE RECORDS SUMMARY | 2024-01-05 18:28 | XMS_ITS | Encounter Summary ---
Author Organization [facility] [place] [address] Care Team Providers Care Finishing Powder Press Operator Name Role Phone Naina Lindsey MD Primary Care Provider [phone] Reason for Visit * Reason Comments Post-op Problem Encounter Details Date Type Department Care Team (Late st Contact Info) Description 05/20/2014 7:24 PM EST - 05/20/2014 9:57 PM EST Surgery [place] [address] Freddy Burciaga MD [facility] [place] [address] @I & D, OPEN, DEEP ABSCESS, LUMBAR, [...] Routine, Hospital Performed Vendor / contact information: [facility] Patient location post discharge: home Service requested: IV abx Start date: 05/26/2014 Responsible MD post discharge contact info: WILL Smith (Edit) Referral to Home Health - at DISCHARGE Routine, Clinic Performed Agency name and contact information: [facility] Patient location post discharge: home What services are requested: Registered Nurse, Home Health Aide, Physical Therapy, Occupational Therapy Start date: 05/26/2014 Responsible MD post discharge contact info: PCP PATIENT'S LOCATION: Tana Shelton [address] [place] [phone] (home) In discussion with the attending physician, it is certified that this patient is under their care and that they, or a Nurse Practitioner,Clinical Nurse specialist or Physician Vp Software who is working directly with them, had [...] Continue with therapies OT: Continue with therapies GRADE TAMPER: Continue support HOME HEALTH CARE AGENCY: [facility] PHONE: [phone] FAX: [phone] Start of care: 05/26/14 Please note that any additional orders needs or changes will need to be obtained from this patient's PCP: MD Coby BRAGG DR / [facility] [id number] All VNA agencies which cover the area of patient's residence have been reviewed, either verbally or in writing, and patient/family have chosen the home health care agency noted Emergency contact: After hours and weekends, call the [facility] batch mixer operator at and ask them to page the neurosurgery resident flight communications specialist. documented in this encounter Medications at Time [...] (AVS) and given to the patient or claim representative. 6) If VNA was ordered, I [...] 0.9% 50 mL Mini-Bag Plus 2 g SvmtsdonjczV9G ??? baclofen 10 mg Oral Nightly ??? levonorgestrel-ethinyl estradiol 1 tablet Oral Daily ??? polyethylene glycol 17 g Oral Daily ??? sodium chloride 0.9 % 5 mL Intravenous BID ??? diaZEPam 5 mg Oral BID Continuous Infusions: ??? sodium chloride 0.9% with potassium chloride 20 mEq 50 mL/hr (06/01/14 3195) PRN Meds:acetaminophen OR acetaminophen, flu vaccine (36 [...] elevated HR this am S: Kenneth Rocco. [facility], [id number] singing ABCs and counting along with stretches [...] pt to d/chome with support and continued PT/OT/SKETCH LINER/VNA services. Staff communication/Mobility Recommendations: Pt. Would benefit [...] timed interventions: 30 minutes for TherEx-F Pager: [phone] Mary Joe, OT Occupational Therapy Rehabilitation Department * Isra Perez RN - 06/01/2014 2:43 PM EST Patient Name: Tana Shelton Patient Age: 18 y.o. Birthdate: 1995 Admit date: 05/20/2014 Attending Physician: Jamaal Samuel MD OFFICE OF CARE MANAGEMENT Farhana Perez RN Pager: [phone] CLINICAL OFFSET PRINTING OPERATOR PROGRESS NOTE e-DH reviewed. Report received from DEMI Sanchez. Patient continues to require acute inpatient care for the treatment of infection. Patient remains on triple abx while awaiting final cultures. [facility] and [facility] have been referred to for discharge. Met with patient's mother at bedside. Mom had multiple questions the other day regarding equipment for home. Mattress for hospital bed was ordered and delivered to home from [facility]. Tomasa Sling was ordered and is to be delivered by [facility] when it ships to [facility] warehouse. TLSO brace to be fitted by [employer]. Mom also inquired about a new motorized wheelchair. Called [facility] in [place] to see if patient would qualify, left message with Oliver- the director of pediatric rehabilitation for [facility]. Patient will need a assessment [...] 0.9% 50 mL Mini-Bag Plus 2 g FfqwiukdeitL5X ??? baclofen 10 mg Oral Nightly ??? [...] family in a single story home in [place], [place]. Pt's mother reports that there is no stair requirement, and that she has all necessary equipment. Stairs: 0 without a rail to enter Baseline Mobility: Completely dependent for all care, home nursing VNA services 3x/week, school-based PT/OT/SKETCH LINER, pt due to receive a communication device [...] than in previous treatment session, counting withthis automotive service writer during stretching Objective: Patient seen [...] internal rotators, adductors ?? Pt helped this automotive service writer with opposite UE when performing [...] session, playing with toys, playfully tricking this automotive service writer when counting during passive stretching, [...] exercise Natividad Esqueda PT, DPT 05/31/2014 Pager: [phone] Physical Therapy Inpatient Rehabilitation Department * Nathalie [...] OF CARE MANAGEMENT Farhana Perez RN Pager: [phone] CLINICAL OFFSET PRINTING OPERATOR PROGRESS NOTE e-DH reviewed. Report received from DEMI Sanchez. Patient continues to require acute inpatient care for the treatment of infection. Patient is on triple abx. Patient needs a new mattress for her hospital bed at home. Patient's mother would like order placed with [employer]. Order pended and booking sent via [employer] Plan: CRC will continue to follow for [...] ?? Pt left laying supine in bed, Rahsi intact, positioned with pillows, student nurse at [...] pt to d/chome with support and continued PT/OT/SKETCH LINER/VNA services. Staff communication/Mobility Recommendations: Pt. Would benefit [...] timed interventions: 45 minutes for TherEx Pager: [phone] Mary Joe OT Occupational Therapy Rehabilitation Department [...] 0.9% 50 mL Mini-Bag Plus 2 g CehqqwrbwqeQ3N ??? baclofen 10 mg Oral Nightly ??? [...] OF CARE MANAGEMENT Farhana Perez RN Pager: [phone] CLINICAL OFFSET PRINTING OPERATOR PROGRESS NOTE e-DH reviewed. Report received from EDMI [place]. Patient continues to require acute inpatient [...] as pt becomes available. Please contact this automotive service writer with any further questions or concerns. Thank you. Pager: [phone] Mary Joe OTR/L Occupational Therapy Inpatient Rehabilitation [...] family in a single story home in [place], [place]. Pt's mother reports that there is no stair requirement, and that she has all necessary equipment. Stairs: 0 without a rail to enter Baseline Mobility: Completely dependent for all care, home nursing VNA services 3x/week, school-based PT/OT/SKETCH LINER, pt due to receive a communication device [...] pt very smiley today, counting with this automotive service writer during stretching, showing off her [...] exercise Natividad Esqueda PT, DPT 05/29/2014 Pager: [phone] Physical Therapy Inpatient Rehabilitation Department * Wai [...] not hesitate to page us on pager [phone] with further questions or concerns. Patient discussed with Dr. Wai Crabtree. Dimple Messina MD Fellow, Infectious Disease 05/29/2014 ID Staff: Discussed with Dr. Messina. Agree with current regimen. This will be a very difficult regimen at [employer] some further discussion is needed. We are [...] 0.9% 50 mL Mini-Bag Plus 2 g FvjsvaxbenzK0K ??? baclofen 10 mg Oral Nightly ??? [...] 0.9% 50 mL Mini-Bag Plus 2 g KhcduofugbcJ5D ??? baclofen 10 mg Oral Nightly ??? [...] CRC received call from EUNICE Hair, from [place], [place] or Asking for status as they will follow her after discharge for IV antibiotic treatment. She will need an OPAT order faxed to above agency when she is ready for discharge as well as administration teaching for home. When ready for discharge, [facility] [employer] PHONE: [phone] FAX: [phone] will also need to be updated. Referral had been made by previous CRC. Covering pager #[phone] for pager #[phone]. * Darius Maguire T - 05/27/2014 8:23 [...] 0.9% 50 mL Mini-Bag Plus 2 g OseqqterczrX3O ??? baclofen 10 mg Oral Nightly ??? [...] Dressing clean and dry Wound without fluctuance [address] Assessment/Plan:: 18 y.o. female s/p removal [...] and developmental delay admitted on 05/20/2014 by Ferddy Callahan MD for management of infected baclofen [...] family in a single story home in [place], [place]. Pt's mother reports that there is no stair requirement, and that she has all necessary equipment. Stairs: 0 without a rail to enter Baseline Mobility: Completely dependent for all care, home nursing VNA services 3x/week, school-based PT/OT/SKETCH LINER, pt due to receive a communication device [...] exercise Natividad Esqueda PT, DPT 05/26/2014 Pager: [phone] Physical Therapy Inpatient Rehabilitation Department * Freddy Burciaga MD - 05/26/2014 6:27 AM EST Neurosurgery - Inpatient Progress Note ID: Tana Shelton, 18 y.o. female s/p removal of retained hardware, washout of infection 05/20 POD 6 Interval Hx: -ALEKSANDRA -Neurologically stable Objective: Medications: Scheduled Meds: ??? cefTAZidime (FORTAZ) 2g vial attach to sodium chloride 0.9% 50 mL Mini-Bag Plus 2 g RcewkbvvdtlI1C ??? baclofen 10 mg Oral Nightly ??? [...] (05/26) or when appropriate. Please page this automotive service writer if you have any questions, thank you. Natividad Esqueda PT Pager #[phone] Physical Therapy Inpatient Rehabilitation * Mary Joe, [...] pt to d/chome with support and continued PT/OT/SKETCH LINER/VNA services. Spoke to CRC this about thoracic [...] timed interventions: 27 minutes for TherEx Pager: [phone] Mary Joe OT Occupational Therapy Rehabilitation Department [...] 0.9% 50 mL Mini-Bag Plus 2 g BciwxkypnjrD7R ??? baclofen 10 mg Oral Nightly ??? [...] of Care Management Farhana Perez RN Pager: [phone] Clinical Environmental Research Project Manager Home IV Antibiotic Therapy Referral Note. Report received from NeuroSurgery Team that patient will require continued home IV antibiotic therapy after discharge from the hospital. Met with patient/family to discuss vendor and visiting nurse choices for home IV antibiotic therapy. Reviewed Home Infusion Vendors and Home Health Agencies that serve patient???s address and accept patient???s insurance. Home Health Agency: Patient requested referral to [facility] PHONE: [phone] FAX: [phone]. Referrals sent via [employer]ischarge. Home Infusion Vendor: Patient requested referral to [place], [place] [phone] or Fax: . Referrals sent via edischarge. [...] 0.9% 50 mL Mini-Bag Plus 2 g NzspjiumlxqI2A ??? baclofen 10 mg Oral Nightly ??? [...] 0.9% 50 mL Mini-Bag Plus 2 g VujjsoqnnrhZ8U ??? baclofen 10 mg Oral Nightly ??? [...] PM EST Office of Care Management Clinical Environmental Research Project Manager Patient Name: Tana Shelton : 1995, 18 [...] None on File (x) HEALTH /PRESCRIPTION COVERAGE: [facility] CURRENT HOME/COMMUNITY SERVICES/EQUIPMENT: DME: [facility] bed, wheelchair, tomasa lift, shower chair. Home Health Agency: [facility] PRIMARY CARE PHYSICIAN: NAINA LINDSEY MD [phone] POTENTIAL DISCHARGE NEEDS: Resume vna visits. Mother stated that she has [facility] - RN and Aide currently. Waiting to confirm this and pt needs. Might need home IV antibx. TRANSPORTATION @ D/C: family PLAN: CRC will continue to monitor progress, follow for continuity of care and assist with discharge planning while hospitalized Lesly Jesus RN Office of Care Management Clinical Environmental Research Project Manager Covering for Farhana Chris [phone] Pager [phone] * Yandy Dasilva, PharmD - 05/22/2014 9:46 AM EST Clinical Pharmacist Note-Vanc Tana S Cat [id number] 1995 Tana Barlowrd is a 18 y.o. [...] have. Alternately, during off-hours you may call [phone] to contact a pharmacist. Yandy Dasilva PHARMBenjamin Pager [phone] * Freddy Burciaga MD - 05/22/2014 6:59 [...] Clinically does not seem to be of PUNCHER origin. Continue triple antibiotics. ID consult. Cultures negative so far - please note that patient did receive Vancomycin in ED prior to OR wound cultures. There was obviously purulent material from the lumbar wound, so would favor empiric treatment even if cultures remain negative. Tarvis Burciaga MD Neurosurgery * Anurag Bradley RN - 05/21/2014 12:38 PM EST Report given to Diana RN Peds. Transferred to [place] [phone] with transport services, RN + family members. Please call Anurag ICU-RN at [phone] with regards to any questions post transfer. [...] mcL Appearance UA Hazy (*) Clear Spec Elmore UA 1.026 1.002 - 1.030 Color UA [...] TANA SHELTON Ordered By: Freddy BURCIAGA MR#: [id number] LOC: OR /Sex: 1995 (18 years), Female PROCEDURE: Tissue Culture SOURCE: Back COLLECTED: 05/20/2014 20:20 FREE TEXT SOURCE: Lumbar Wound Culture STARTED: 05/20/2014 22:13 STAINS / PREPARATIONS Gram Stain Report Verified:05/20/2014 22:28 Few White Blood Cells seen No microorganisms seen. TISSUE CULTURE Result Value Ref Range Tissue Culture Value: Patient Name: TANA SHELTON Ordered By: EVITAFreddy IRENE MR#: [id number] LOC: OR /Sex: 1995 (18 years), Female [...] initiated 0040: Report given to Jenn ADMITTING MANAGER info reviewed/questions answered, pt ready for transfer [...] to the planned procedure. Hand Hygiene: The hyperbaric nurse did perform hand hygiene prior to line insertion. Catheter type: PICC Lot number: [id number] Procedure Technique: Skin was prepped with chlorhexidine. [...] warm and was flushed. They called the flight communications specialist neurosurgeon, who advised that they come to [...] BILATERAL performed by YAS OLIVER [facility] MAIN OR ??? Apply of hip casts, two legs 08/15/2010 CAST APPLICATION, HIP SPICA, BOTH LEGS performed by YAS OLIVER at [facility] MAIN OR ??? Removal deep implant 08/15/2010 REMOVAL IMPLANT, DEEP, BRUNO performed by YAS OLIVER at [facility] MAIN OR ??? Osteotomy femur shaft/supracondy 08/15/2010 ??OSTEOTOMY, FEMUR SHAFT OR SUPRACONDYLAR W/O FIXATION performed by YAS OLIVER at [facility] MAIN OR ??? Remove spinal canal catheter N/A 05/11/2014 REMOVAL OF INTRATHECAL OR EPIDURAL CATHETER performed by Jamaal Samuel MD at [facility] MAIN OR ??? Remove infusn device/pump N/A 05/11/2014 REMOVAL OF SPINE INFUSION PUMP performed by Jamaal Samuel MD at [facility] MAIN OR Medications: No current facility-administered [...] stepfather Tobacco exposure:No Day care/year in school: [employer] Physical Exam: Vitals: Patient [...] mcL Appearance UA Hazy (*) Clear Spec [place] UA 1.026 1.002 - 1.030 Color UA [...] Size requested: twin bed Vendor Name/Contact information: [facility] New (Edit) Referral for Outpatient Antibiotics Routine, Hospital Performed Vendor / contact information: [facility] Patient location post discharge: home Service requested: IV abx Start date: 05/26/2014 Responsible MD post discharge contact info: PCP New (Edit) Referral to Home Health - at DISCHARGE Routine, Clinic Performed Agency name and contact information: [facility] Patient location post discharge: home What services are requested: Registered Nurse, Home Health Aide, Physical Therapy, Occupational Therapy Start date: 06/06/2014 Responsible MD post discharge contact info: PCP PATIENT'S LOCATION: Tana Shelton [address] [place] [phone] (home) In discussion with the attending physician, it is certified that this patient is under their care and that they, or a Nurse Practitioner,Clinical Nurse specialist or Physician Vp Software who is working directly with them, had [...] Continue with therapies OT: Continue with therapies GRADE TAMPER: Continue support HOME HEALTH CARE AGENCY: [facility] PHONE: [phone] FAX: [phone] Start of care: 05/26/14 Please note that any additional orders needs or changes will need to be obtained from this patient's PCP: MD Coby BRAGG DR / [place] [address] All VNA agencies which cover the area of patient's residence have been reviewed, either verbally or in writing, and patient/family have chosen the home health care agency noted Emergency contact: After hours and weekends, call the [facility] batch mixer operator at and ask them to page the neurosurgery resident flight communications specialist. * Plan of Care - Margot Monzon [...] Health Knowledge, Opportunity for Enhanced (Adult, NICU, Vaughn, Obstetrics, Pediatric) Goal: Identify Signs and Symptoms [...] yo. Supervision: Continuous; [place]a. Fannie at home oxygen plant operator at bedside this morning ; Mom arrived [...] Health Knowledge, Opportunity for Enhanced (Adult, NICU, Vaughn, Obstetrics, Pediatric) Goal: Identify Signs and Symptoms [...] (Interventions Implemented as Appropriate) 05/25/14 0527 05/26/14 7765 Plan of Care Review Plan of Care [...] AM EST Clinical Pharmacist Note-Vancomycin Tana Shelton [id number] 1995 Tana Shelton is a 18 y.o. [...] contact a pharmacist. Elmer Tobin, [place] Pager [phone] * Plan of Care - Leana Hicks [...] Outcome: Ongoing (Interventions Implemented as Appropriate) 05/27/14 2509 Infection, Risk/Actual (Adult, Obstetrics) Infection Prevention/Resolution/Control making progress toward outcome Problem: Fall/Trauma/Injury Risk (Pediatric) Goal: Identify Signs and Symptoms and Related Risk Factors Signs and symptoms and related risk factors are identified upon initiation of Human Response Clinical Practice Guideline (CPG) Outcome: Outcome (s) achieved Date Met: 05/27/14 05/22/14202905/25/14 465 Fall/Trauma/Injury Risk Personal Related Risk Factors (Fall/Trauma/Injury Risk) gait/mobility problems/weakness -- Physiological Related Risk Factors (Fall/Trauma/Injury Risk) -- developmental disability;incontinence;neurologic alteration;neuromuscular alteration Treatment Related Related Risk Factors (Fall/Trauma/Injury Risk) -- invasive/noninvasive equipment;medication;bed rest Signs and Symptoms (Fall/Trauma/Injury Risk) -- presence of risk factors Problem: Health Knowledge, Opportunity for Enhanced (Adult, NICU, Vaughn, Obstetrics, Pediatric) Goal: Identify Signs and Symptoms [...] Burciaga MD - 05/26/2014 4:52 PM EST [facility] Operative Note Patient Name: Tana Shelton : [id number] MR#: [id number] Case Date: 05/26/2014 Surgeon: Surgeon(s) and Role: [...] (Interventions Implemented as Appropriate) 05/22/14 0634 05/24/14 5234 Discharge Needs Assessment Concerns to be Addressed [...] Health Knowledge, Opportunity for Enhanced (Adult, NICU, Vaughn, Obstetrics, Pediatric) Goal: Identify Signs and Symptoms and Related Risk Factors Signs and symptoms and related risk factors are identified upon initiation of Human Response Clinical Practice Guideline (CPG) Outcome: Ongoing (Interventions Implemented as Appropriate) * Plan of Care - Carisa Godwin RN - 05/25/2014 8:02 AM EST Problem: Health Knowledge, Opportunity for Enhanced (Adult, NICU, Vaughn, Obstetrics, Pediatric) Goal: Knowledgeable about Health Subject/Topic Patient will demonstrate the desired outcomes. Outcome: Outcome (s) achieved Date Met: 05/25/14 05/25/14 0802 Health Knowledge, Opportunity for Enhanced (Adult, NICU, Vaughn, Obstetrics, Pediatric) Knowledgeable about Health Subject/Topic achieves [...] bedside;lighting adjusted for task/safety;low bed;environmental modification 05/25/14 0515 Musculoskeletal Interventions Activity/Level of Assistance -- Self-Care [...] Outcome: Ongoing (Interventions Implemented as Appropriate) 05/24/14 1893 Plan of Care Review Plan of Care [...] BILATERAL performed by YAS OLIVER [facility] OR ??? Apply of hip casts, two legs 08/15/2010 CAST APPLICATION, HIP SPICA, BOTH LEGS performed by YAS OLIVER at [facility] OR ??? Removal deep implant 08/15/2010 REMOVAL IMPLANT, DEEP, BRUNO performed by YAS OLIVER at [facility] OR ??? Osteotomy femur shaft/supracondy 08/15/2010 ??OSTEOTOMY, FEMUR SHAFT OR SUPRACONDYLAR W/O FIXATION performed by YAS OLIVER at [facility] OR ??? Remove spinal canal catheter N/A 05/11/2014 REMOVAL OF INTRATHECAL OR EPIDURAL CATHETER performed by Jamaal Samuel MD at [facility] OR ??? Remove infusn device/pump N/A 05/11/2014 REMOVAL OF SPINE INFUSION PUMP performed by Jamaal Samuel MD at [facility] OR ? ? I&d, post spine, lumb/sacr/lumbosac N/A 05/20/2014 @I & D, OPEN, DEEP ABSCESS, LUMBAR, SACRAL, LUMBOSACRAL performed by Freddy Burciaga MD at [facility] OR ??? Repr, dural/csf leak, not req laminectomy N/A 05/20/2014 @REPAIR DURAL\CSF LEAK,NOT REQUIRING LAMINECTOMY performed by Freddy Burciaga MD at [facility] OR Social and Developmental History: Patient lives with her family in a single level home in [place], [place]. Pt's mother reports that their home [...] has an older sister who lives in [place] and 3 younger brothers. She likes to [...] RN and mom assist. Feeding: per mom: NEWTOK assist for use of utensils; not observed [...] to d/c home with support and continued PT/OT/SKETCH LINER/VNA services. Spoke with CRC about consultfor new [...] you for this occupational therapy consult. Pager: [phone] Mary Joe OT 05/24/2014 Occupational Therapy Rehabilitation [...] BILATERAL performed by YAS OLIVER [facility] OR ??? Apply of hip casts, two legs 08/15/2010 CAST APPLICATION, HIP SPICA, BOTH LEGS performed by YAS OLIVER at [facility] OR ??? Removal deep implant 08/15/2010 REMOVAL IMPLANT, DEEP, BRUNO performed by YAS OLIVER at [facility] OR ??? Osteotomy femur shaft/supracondy 08/15/2010 ??OSTEOTOMY, FEMUR SHAFT OR SUPRACONDYLAR W/O FIXATION performed by YAS OLIVER at [facility] OR ??? Remove spinal canal catheter N/A 05/11/2014 REMOVAL OF INTRATHECAL OR EPIDURAL CATHETER performed by Jamaal Samuel MD at [facility] OR ??? Remove infusn device/pump N/A 05/11/2014 REMOVAL OF SPINE INFUSION PUMP performed by Jamaal Samuel MD at [facility] OR ? ? I&d, post spine, lumb/sacr/lumbosac N/A 05/20/2014 @I & D, OPEN, DEEP ABSCESS, LUMBAR, SACRAL, LUMBOSACRAL performed by Freddy Burciaga MD at [facility] OR ??? Repr, dural/csf leak, not req laminectomy N/A 05/20/2014 @REPAIR DURAL\CSF LEAK,NOT REQUIRING LAMINECTOMY performed by Freddy Burciaga MD at [facility] MAIN OR Social History: Patient lives with her family in a single story home in [place], [place]. Pt's mother reports that there is no stair requirement, and that she has all necessary equipment. Stairs: 0 without a rail to enter Baseline Mobility: Completely dependent for all care, home nursing VNA services 3x/week, school-based PT/OT/SKETCH LINER, pt due to receive a communication device [...] appropriate and joins in counting with this automotive service writer while stretching Objective: Pt seen [...] minutes Natividad Esqueda PT, DPT 05/24/2014 Pager: [phone] Physical Therapy Inpatient Rehabilitation Department * Plan [...] based on it's ability to penetrate the PUNCHER. We need todiscuss whether to pursue an [...] to 40 mEq. One dose of IV [id number] mEq administered per orders. Re-check of K [...] placement of baclofen pump in 2007 in [place]. Due to lack of efficacy the baclofen [...] and Lipase were normal. Per her daycare transition assistant, may be related to administration of oxycodone as this has been issue in the past. Cannotexclude component of baclofen withdrawal, but less likely. No current concern for acute PUNCHER process. - Serial exams. Ensure daily BMs [...] although it may not have the best PUNCHER penetration unless meninges are actually inflamed. - [...] fluid only. MD called for antiemetic and [place] tylenol. Zofran given when order receivedand med [...] Burciaga MD - 05/21/2014 11:53 AM EST [facility] Operative Note Patient Name: Tana Shelton : [id number] MR#: [id number] Case Date: 05/20/2014 - 05/21/2014 Surgeon: Surgeon(s) [...] BILATERAL performed by YAS OLIVER [facility] MAIN OR ??? Apply of hip casts, two legs 08/15/2010 CAST APPLICATION, HIP SPICA, BOTH LEGS performed by YAS OLIVER at [facility] MAIN OR ??? Removal deep implant 08/15/2010 REMOVAL IMPLANT, DEEP, BRUNO performed by YAS OLIVER at [facility] MAIN OR ??? Osteotomy femur shaft/supracondy 08/15/2010 ??OSTEOTOMY, FEMUR SHAFT OR SUPRACONDYLAR W/O FIXATION performed by YAS OLIVER at [facility] MAIN OR ??? Remove spinal canal catheter N/A 05/11/2014 REMOVAL OF INTRATHECAL OR EPIDURAL CATHETER performed by Jamaal Samuel MD at [facility] MAIN OR ??? Remove infusn device/pump N/A 05/11/2014 REMOVAL OF SPINE INFUSION PUMP performed by Jamaal Samuel MD at [facility] MAIN OR No family history on [...] mcL Appearance UA Hazy (*) Clear Spec [place] UA 1.026 1.002 - 1.030 Color UA [...] TANA SHELTON Ordered By: Freddy BURCIAGA MR#: [id number] LOC: OR /Sex: 1995 (18 years), Female PROCEDURE: Tissue Culture SOURCE: Back COLLECTED: 05/20/2014 20:20 FREE TEXT SOURCE: Lumbar Wound Culture STARTED: 05/20/2014 22:13 STAINS / PREPARATIONS Gram Stain Report Verified:05/20/2014 22:28 Few White Blood Cells seen No microorganisms seen. TISSUE CULTURE Result Value Range Tissue Culture Value: Patient Name: TANA SHELTON Ordered By: Freddy BURCIAGA MR#: [id number] LOC: OR /Sex: 1995 (18 years), Female [...] PM EST Office [place] [address] Hollie Ambriz MD [facility] [place] [address] Pending Results Name Type Priority Associated Diagnoses [...] REQUIRING LAMINECTOMY Routine 05/20/2014 10:22 PM EST WEB SITE MANAGER CULTURE Routine 5 10:01 PM EST [...] MD HEMATOLOGY ORDERABLE S Performing Organization Address City/[facility]/ZIP Co de Phone Number CERALIN MILLENNIUM [...] Metabolic Panel (non-fasting) (06/02/2014 5:55 AM EST) [facility] Glucose 75 60 - 199 mg/dL CERNER MILLENNIUM Comment:Diabetes: >=200 mg/d L plus symptoms Blood Urea Nitrogen 5(L) 8 - 18 mg/dL CERNER MILLENNIUM Creatinine 0.30(L) 0.70 - 1.20 mg/dL CERNER MILLENNIUM Comment: Please note that the pediatric reference intervals supplied above were not validated at [facility]. Results from pediatric patients should be interpreted [...] the following links into your internet browser. [email or web address] Blood specimen (specimen) 06/02/2014 5:55 AM EST 06/02/2014 6:09 AM EST Narrative Resulting Agency Comment Spec In Lab S Alek Burciaga MD CHEMISTRY ORDERABLES [facility] [employer] [facility]ITAL[facility] * (ABNORMAL) Sedimentation rate (06/01/2014 12:40 PM EST) Sedimentation Rate Automated 46(H) 0 - 20 mm/hr LINDA BASHIR Blood specimen (specimen) Venous Draw / Unknown 06/01/2014 12:40 PM EST 06/01/2014 12:48 PM EST Narrative Resulting Agency Comment Spec In Lab S Alek Burciaga MD HEMATOLOGY ORDERABLE S Performing Organization Address [facility] Phone Number [facility] * High Sensitivity CRP (06/01/2014 12:40 PM EST) Pathologist [facility] C-Reactive Protein High Sensitivity 15.4 mg/L [facility] Comment: Interpretations: 1) For accurate cardiac [...] Burciaga MD CHEMISTRY ORDERABLES Performing Organization Address [facility] Phone Number [facility] * Differential, Automated (06/01/2014 12:40 PM EST) Neutrophil % 66.8 % [facility] Neutrophil Absolute 4.96 1.50 - 6.30 [...] intervals supplied above were not validated at [facility]. Results from pediatric patients should be interpreted [...] the following links into your internet browser. [email or web address] [email or web address] Blood specimen (specimen) 06/01/2014 12:40 PM EST [...] HEMATOLOGY ORDERABLE S Performing Organization Address [facility]/ZIP Co de Phone Number CERNER MILLENNIUM [...] intervals supplied above were not validated at [facility]. Results from pediatric patients should be interpreted [...] the following links into your internet browser. http://[employer]/DHnkdep [email or web address] Blood specimen (specimen) 05/30/2014 6:50 AM EST [...] intervals supplied above were not validated at [facility]. Results from pediatric patients should be interpreted [...] the following links into your internet browser. http://[employer]/DHnkdep [email or web address]/DHMCnkf Blood specimen (specimen) 05/29/2014 7:13 AM EST [...] Lab S Alek Burciaga MD CHEMISTRY ORDERABLES [facility] [employer] [facility] * (ABNORMAL) Basic Metabolic Panel (non-fasting) (05/28/2014 9:00 AM EST) [facility] Glucose 121 60 - 199 mg/dL CERNER MILLENNIUM Comment:Diabetes: >=200 mg/d L plus symptoms Blood Urea Nitrogen 4(L) 8 - 18 mg/dL CERNER MILLENNIUM Creatinine 0.29(L) 0.70 - 1.20 mg/dL CERNER MILLENNIUM Comment: Please note that the pediatric reference intervals supplied above were not validated at [facility]. Results from pediatric patients should be interpreted [...] the following links into your internet browser. [email or web address] Blood specimen (specimen) 05/28/2014 9:00 AM EST [...] * (ABNORMAL) Hemogram (05/27/2014 5:30 AM EST) [facility] White Blood Cell 6.8 4.0 - 10.0 [...] S Alek Burciaga MD HEMATOLOGY ORDERABLE S [facility] * (ABNORMAL) Basic Metabolic Panel (non-fasting) (05/27/2014 5:30 AM EST) [facility] Glucose 81 60 - 199 mg/dL CERNER MILLENNIUM Comment:Diabetes: >=200 mg/d L plus symptoms Blood Urea Nitrogen 4(L) 8 - 18 mg/dL CERNER MILLENNIUM Creatinine 0.21(L) 0.70 - 1.20 mg/dL CERNER MILLENNIUM Comment: Please note that the pediatric reference intervals supplied above were not validated at [facility]. Results from pediatric patients should be interpreted [...] the following links into your internet browser. http://[email or web address] [email or web address] Blood specimen (specimen) 05/27/2014 5:30 AM EST 05/27/2014 5:39 AM EST Narrative Resulting Agency Comment Spec In Lab Freddy Burciaga MD CHEMISTRY ORDERABLES Performing Organization Address City/State/[facility] Co pr Phone Number [facility] * Anaerobic Culture (05/26/2014 5:30 PM EST) Anaerobic Culture ? Patient Name: TANA SHELTON ? Ordered By: Freddy BURCIAGA ? MR#: [id number] ?LOC: ??PA ? /Sex: ??1995 (18 years), ? Female ? PROCEDURE: Anaerobic Culture ?SOURCE: Back ? COLLECTED: 05/26/2014 17:30 ?FREE TEXT SOURCE: Lumbar ? STARTED: 05/26/2014 17:41 ? FINAL REPORT ? Final Report ? Verified:2014 12:55 ? No anaerobic organisms isolated ? PRELIMINARY REPORT ? Preliminary Report ? Verified:2014 12:08 ? No anaerobic organisms isolated to date ? [facility] Structure of back of trunk (body structure) 05/26/2014 5:30 PM EST 05/26/2014 5:41 PM EST Comment:LUMBAR Narrative Resulting Agency Comment Spec In Lab Freddy Burciaga MD MICROBIOLOGY - GENER AL ORDERABLES [facility] * Tissue culture (05/26/2014 5:30 PM EST) Tissue Culture ? Patient Name: TANA SHELTON ? Ordered By: Freddy BURCIAGA ? MR#: [id number] ?LOC: ??PA ? /Sex: ??1995 (18 years), [...] S ? Patient: TANA SHELTON ? MR#: [id number] ? S=Susceptible ??I=Intermediate ??R=Resistant ??NA=Not Applicable ? DDS=Dose dependent-suscept ible ??NS=Non-suscepti ble ? [facility] Structure of back of trunk (body structure) 05/26/2014 5:30 PM EST 05/26/2014 5:41 PM EST Comment:LUMBAR Narrative Resulting Agency Comment Spec In Lab Freddy Burciaga MD MICROBIOLOGY - GENER AL ORDERABLES [facility] * Anaerobic Culture (05/26/2014 5:30 PM EST) Anaerobic Culture ? Patient Name: TANA SHELTON ? Ordered By: Freddy BURCIAGA ? MR#: [id number] ?LOC: ??PA ? /Sex: ??1995 (18 years), [...] ? Ordered By: Freddy BURCIAGA ? MR#: [id number] ?LOC: ??PA ? /Sex: ??1995 (18 years), [...] plates. ? Patient: TANA SHELTON ? MR#: [id number] ? SUSCEPTIBILITY RESULTS ? Coagulase negative Staphylococcus [...] (1) ? Gentamicin is not appropriate for [place]-therapy. ? (2) ? Penicillin resistant, Nafcillin susceptible [...] MD MICROBIOLOGY - GENER AL ORDERABLES [facility] * Anaerobic Culture (05/26/2014 5:30 PM EST) Anaerobic Culture ? Patient Name: TANA SHELTON ? Ordered By: Freddy BURCIAGA ? MR#: [id number] ?LOC: ??PA ? /Sex: ??1995 (18 years), [...] ? Ordered By: Freddy BURCIAGA ? MR#: [id number] ?LOC: ??PA ? /Sex: ??1995 (18 years), [...] Screen Interp Negative CERNER MILLENNIUM Expires at 1759 on: [id number] CERNER THOMENNIUM Blood specimen (specimen) 05/26/2014 12:40 PM EST 05/26/2014 12:59 PM EST Narrative Resulting Agency Comment Spec In Lab S Alek Burciaga MD BLOOD BANK LAB ORDER MYRANDA [email or web address] [email or web address] * ABO/Rh Typing (05/26/2014 12:40 PM EST) [...] MD HEMATOLOGY ORDERABLE S [facility] MILLENNIUM * (ABNORMAL) Basic Metabolic Panel (non-fasting) (05/26/2014 4:15 AM EST) [facility] Glucose 88 60 - 199 mg/dL CERNER MILLENNIUM Comment:Diabetes: >=200 mg/d L plus symptoms Blood Urea Nitrogen 6(L) 8 - 18 mg/dL CERNER MILLENNIUM Creatinine 0.28(L) 0.70 - 1.20 mg/dL CERNER MILLENNIUM Comment: Please note that the pediatric reference intervals supplied above were not validated at [facility]. Results from pediatric patients should be interpreted [...] the following links into your internet browser. [email or web address] [email or web address] Blood specimen (specimen) 05/26/2014 4:15 AM EST 05/26/2014 4:35 AM EST Narrative Resulting Agency Comment Spec In Lab S Alek Burciaga MD CHEMISTRY ORDERABLES LINDA BASHIR * Place PICC Line: Contact Vascular Access Page [phone] (05/25/2014 4:01 PM EST) Narrative [place] [...] to the planned procedure. Hand Hygiene: The hyperbaric nurse did perform hand hygiene prior to line insertion. Catheter type: PICC Lot number: [id number] Procedure Technique: Skin was prepped with chlorhexidine. [...] focal. COMPARISON: Scoliosis radiographs from 12/16/2011 FINDINGS: Software Database Architect views demonstrate severe rightward scoliotic deformity centered [...] No gross collections in the cervical spine. Software Database Architect coronal image 8 of series 8 demonstrates [...] inf,focal. COMPARISON: Scoliosis radiographs from 12/16/2011 FINDINGS: Software Database Architect views demonstrate severe rightward scoliotic deformity centered [...] abnormalities. No grosscollections in the cervical spine. Software Database Architect coronal image 8 of series 8 demonstrates [...] Narrative 05/25/2014 4:10 PM EST See accession #[id number] for dictation of this study. This report was reviewed by Andrade Rebolledo MD at 05/25/2014 4:05 PM Film and interpretation reviewed by the attending Procedure Note Andrade Roth MD - 05/25/2014 See accession #[id number] for dictation of this study. This report [...] Metabolic Panel (non-fasting) (05/25/2014 5:00 AM EST) [facility] Glucose 87 60 - 199 mg/dL CERNER MILLENNIUM Comment:Diabetes: >=200 mg/d L plus symptoms Blood Urea Nitrogen 6(L) 8 - 18 mg/dL CERNER MILLENNIUM Creatinine 0.27(L) 0.70 - 1.20 mg/dL CERNER MILLENNIUM Comment: Please note that the pediatric reference intervals supplied above were not validated at [facility]. Results from pediatric patients should be interpreted [...] the following links into your internet browser. [email or web address] [email or web address] Blood specimen (specimen) 05/25/2014 5:00 AM EST [...] 8 - 18 mg/dL CERNER MILLENNIUM Comment:result rechecked-[facility] Creatinine 0.39(L) 0.70 - 1.20 mg/dL CERNER MILLENNIUM Comment: Please note that the pediatric reference intervals supplied above were not validated at [facility]. Results from pediatric patients should be interpreted [...] the following links into your internet browser. [email or web address] Blood specimen (specimen) 05/24/2014 12:42 PM EST 05/24/2014 12:42 PM EST Narrative Resulting Agency Comment Spec In Lab S Alek Burciaga MD CHEMISTRY ORDERABLES Performing Organization Address [facility] Co de Phone Number LINDA [...] Burciaga MD CHEMISTRY ORDERABLES Performing Organization Address [facility] de Phone Number [...] Burciaga MD CHEMISTRY ORDERABLES Performing Organization Address [facility] Co de Phone Number CERALIN [...] Burciaga MD CHEMISTRY ORDERABLES Performing Organization Address [facility] Phone Number CERNER MILLENNIUM * (ABNORMAL) Phosphorus (05/22/2014 12:45 PM EST) Phosphorus 2.2(L) 2.5 - 4.5 mg/dL CERNER MILLENNIUM Blood specimen (specimen) Venous Draw / Unknown 05/22/2014 12:45 PM EST 05/22/2014 1:03 PM EST Narrative Resulting Agency Comment Spec In Lab Lucho Smith MD CHEMISTRY ORDERABLES Performing Organization Address [facility] de Phone Number CERNER MILLENNIUM * Magnesium (05/22/2014 12:45 PM EST) Magnesium 0.69 0.69 - 1.07 mmol/L CERNER MILLENNIUM Blood specimen (specimen) Venous Draw / Unknown 05/22/2014 12:45 PM EST 05/22/2014 1:03 PM EST Narrative Resulting Agency Comment Spec In Lab Lucho Smith MD CHEMISTRY ORDERABLES Performing Organization Address [facility] Co de Phone Number CERNER MILLENNIUM * Lipase (05/22/2014 12:45 PM EST) Lipase 44 0 - 60 unit/L CERNER MILLENNIUM Blood specimen (specimen) 05/22/2014 12:45 PM EST 05/22/2014 1:03 PM EST Narrative Resulting Agency Comment Spec In Lab Lucho Smith MD CHEMISTRY ORDERABLES Performing Organization Address [facility] de Phone Number CERNER MILLENNIUM * Amylase (05/22/2014 12:45 PM EST) Amylase 89 28 - 100 unit/L CERNER MILLENNIUM Blood specimen (specimen) 05/22/2014 12:45 PM EST 05/22/2014 1:03 PM EST Narrative Resulting Agency Comment Spec In Lab Lucho Smith MD CHEMISTRY ORDERABLES Performing Organization Address [facility] de Phone Number [...] intervals supplied above were not validated at [facility]. Results from pediatric patients should be interpreted [...] the following links into your internet browser. [email or web address] [email or web address] Blood specimen (specimen) 05/22/2014 12:45 PM EST [...] HEMATOLOGY ORDERABLE S Performing Organization Address [facility] Co de Phone Number LINDA [...] Burciaga MD CHEMISTRY ORDERABLES Performing Organization Address [facility] Co de Phone Number [facility] * (ABNORMAL) Basic Metabolic Panel (non-fasting) (05/22/2014 6:10 AM EST) Glucose 86 60 - 199 mg/dL [facility] MILLENNIUM Comment:Diabetes: >=200 mg/d L plus symptoms Blood Urea Nitrogen 3(L) 8 - 18 mg/dL CERNER MILLENNIUM Creatinine 0.27(L) 0.70 - 1.20 mg/dL CERNER MILLENNIUM Comment: Please note that the pediatric reference intervals supplied above were not validated at [facility]. Results from pediatric patients should be interpreted [...] the following links into your internet browser. [email or web address]://[email or web address] [email or web address] Blood specimen (specimen) 05/22/2014 6:10 AM EST [...] intervals supplied above were not validated at [facility]. Results from pediatric patients should be interpreted [...] the following links into your internet browser. http://[email or web address] [email or web address]/DHMCnkf Blood specimen (specimen) 05/21/2014 4:23 AM EST 05/21/2014 4:38 AM EST Narrative Resulting Agency Comment Spec In Lab Freddy Burciaga MD CHEMISTRY ORDERABLES Performing Organization Address City/State/[facility] Co pr Phone Number [facility] * Shirt Ironer Supervisor Culture (05/20/2014 10:01 PM EST) Shirt Ironer Supervisor Culture ? Patient Name: TANA SHELTON ? Ordered By: Freddy BURCIAGA ? MR#: [id number] ?LOC: ??[place] ? /Sex: ??1995 (18 years), ? Female ? PROCEDURE: Shirt Ironer Supervisor Culture ?SOURCE: Other ? COLLECTED: 05/20/2014 [...] ? Ordered By: Freddy BURCIAGA ? MR#: [id number] ?LOC: ??[place] ? /Sex: ??1995 (18 years), [...] ? Ordered By: Freddy BURCIAGA ? MR#: [id number] ?LOC: ??[place] ? /Sex: ??1995 (18 years), [...] ? S ? Patient: [place] ? MR#: [id number] ? S=Susceptible ??I=Intermediate ??R=Resistant ??NA=Not Applicable ? [...] ? Ordered By: Freddy BURCIAGA ? MR#: [id number] ?LOC: ??[place] ? /Sex: ??1995 (18 years), [...] ? Ordered By: Freddy BURCIAGA ? MR#: [id number] ?LOC: ??PA ? /Sex: ??1995 (18 years), [...] ? Ordered By: BELKIS LOUIE ? MR#: [id number] ?LOC: ??[place] ? /Sex: ??1995 (18 years), [...] Urine Dipstick Hazy(A) Clear CERNER MILLENNIUM Specific [place] Urine Automated 1.026 1.002 - 1.030 CERNER [...] In Lab Belkis Louie MD URINE ORDERABLES [facility] * L-Lactate2 Whole Blood (05/20/2014 6:17 PM EST) Pathologist [facility] Lactate WB 1.6 0.5 - 2.2 mmol/L [facility] Blood specimen (specimen) 05/20/2014 6:17 PM EST 05/20/2014 6:17 PM EST Belkis Louie MD CHEMISTRY ORDERABLES [facility] * Blood culture (05/20/2014 6:00 PM EST) Blood Culture ? Patient Name: TANA SHELTON ? Ordered By: BELKIS LOUIE ? MR#: [id number] ?LOC: ??[place] ? /Sex: ??1995 (18 years), [...] MD HEMATOLOGY ORDERABLE S Performing Organization Address City/[facility]/ZIP Co de Phone Number CERALIN TOMASENNIUM [...] ? Ordered By: BELKIS LOUIE ? MR#: [id number] ?LOC: ??[place] ? /Sex: ??1995 (18 years), [...] EST) Glucose 81 60 - 199 mg/dL [facility] Comment:Diabetes: >=200 mg/d L plus symptoms Blood specimen (specimen) 05/20/2014 5:15 PM EST 05/20/2014 5:31 PM EST Narrative Resulting Agency Comment Spec In Lab Belkis Louie MD CHEMISTRY ORDERABLES Performing Organization Address [facility] Co de Phone Number [facility] * (ABNORMAL) Creatinine (05/20/2014 5:15 PM EST) Creatinine 0.37(L) 0.70 - 1.20 mg/dL [facility] Comment: Please note that the pediatric reference intervals supplied above were not validated at [facility]. Results from pediatric patients should be interpreted in conjunction to the patient's age, height and muscle mass. Est Glomerular Filtration Rate >60 >=60 [facility] Comment: This estimated GFR (eGFR) value [...] the following links into your internet browser. [email or web address] [email or web address] Blood specimen (specimen) 05/20/2014 5:15 PM EST 05/20/2014 5:31 PM EST Narrative Resulting Agency Comment Spec In Lab Belkis Louie MD CHEMISTRY ORDERABLES Performing Organization Address City/[facility] Co de Phone Number LINDA BASHIR * BUN (05/20/2014 5:15 PM EST) Blood Urea Nitrogen 9 8 - 18 mg/dL [facility] Blood specimen (specimen) 05/20/2014 5:15 PM [...] Louie MD CHEMISTRY ORDERABLES Performing Organization Address City/[facility]/ZIP Co de Phone Number LINDA BASHIR [...] Nely Boss, Indication for (Active or Suspected): PUNCHER/Meningitis 0616 (Given - Provider: Linsey Mcintyre RN)1446 [...] Mcintyre RN) 0900 (Given - Provider: Dolores Pation RN)2010 (Given - Provider: Margot Monzon RN) 0836 (Given - Provider: Hedy Vazquez, UENICE) polyethylene glycol (MIRALAX) packet 17 g (CANCELED) [...] Routine documented in this encounter Care Teams Finishing Powder Press Operator Relationship Specialty Start Date End Date Naina Lindsey MD [address] [place] [address] [place] [address] PCP - General 03/19/10 08/25/16 documented as of this encounter
--- OUTSIDE RECORDS SUMMARY | 2024-01-05 18:29 | XMS_ITS | Encounter Summary ---
Author Organization [facility] [place] [address] Care Team Providers Care Press Cutter Name Role Phone Naina Lindsey MD Primary Care Provider [phone] Reason for Referral * Consultation (Routine) - Complete - Patient Will Schedule External Appt Specialty Diagnoses / Procedures Referred By Contac t Referred To Contact Orthotics Diagnoses Edema leg Scoliosis Acquired dysplasia of hip Traumatic brain injury Yas Ramirez MD [facility] [place] [address] Referral ID Status Reason Start Date Expiration Date Visits Requested Visits Authorized [id number] Complete - Patient Will Schedule External Appt Consult, Test & Treat 1 10/13/2011 1 1 Encounter Details Date Type Department Care Team (Late st Contact Info) Description 04/16/2011 [place] [address] Yas Ramirez MD [facility] [place] [address] Edema leg; Scoliosis; Acquired dysplasia of hip, [...] PM EST Office [place] [address] Hollie Ambriz MD [facility] [place] [address] Scheduled Referrals Name Type Priority Associated Diagnoses [...] consciousness documented in this encounter Care Teams Press Cutter Relationship Specialty Start Date End Date Naina Lindsey MD [address] [place] [address] PCP - General 03/19/10 08/25/16 documented as of this encounter
--- OUTSIDE RECORDS SUMMARY | 2024-01-05 18:29 | XMS_ITS | Encounter Summary ---
Author Organization [facility] Address [facility] [place] [address] Care Team Providers Care Marketing Consultant Name Role Phone Naina Lindsey MD Primary Care Provider Reason for Visit * Reason Comments Follow-up PRE-SURGERY QUESTION S Encounter Details Date Type Department Care Team (Late st Contact Info) Description 05/03/2014 3:00 PM EST Follow-[place] [address] Jamaal Samuel MD [facility] [place] [address] Presence of intrathecal baclofen pump Discharge Disposition: [...] pump placed for increased extremity tone at [facility] in 2007 but mom believes the [...] PM EST Office [place] [address] Hollie Ambriz MD [facility] [place] [address] documented as of this encounter Visit Diagnoses Diagnosis Presence of intrathecal baclofen pump documented in this encounter Care Teams Marketing Consultant Relationship Specialty Start Date End Date Naina Lindsey MD [address] [place] [address] [place] [address] PCP - General 03/19/10 08/25/16 documented as of this encounter
--- OUTSIDE RECORDS SUMMARY | 2024-01-05 18:29 | XMS_ITS | Encounter Summary ---
Author Organization [facility] [place] [address] Care Team Providers Care Dry Transfer Worker Name Role Phone Naina Lindsey MD Primary Care Provider Encounter Details Date Type Department Care Team (Late st Contact Info) Description 02/27/2014 Telephone [place] [address] Donnell Dotson MD [facility] [place] [address] Social History Tobacco Use Types Packs/Day Years [...] PM EST Office [place] [address] Hollie Ambriz MD [facility] [place] [address] documented as of this encounter Visit Diagnoses Not on filedocumented in this encounter Care Teams Dry Transfer Worker Relationship Specialty Start Date End Date Naina Lindsey MD [address] [place] [address] PCP - General 03/19/10 08/25/16 documented as of this encounter
--- OUTSIDE RECORDS SUMMARY | 2024-01-05 18:29 | XMS_ITS | Encounter Summary ---
Author Organization [facility] [place] [address] Care Team Providers Care Mobile Crane Operator Name Role Phone Naina Lindsey MD Primary Care Provider [phone] Encounter Details Date Type Department Care Team (Latest Contact Info) Description 01/12/2012 11:15 AM EDT Procedure [place] [address] Bigg Dunbar MD [facility] [place] [address] Abnormal involuntary movements (Primary Dx) Discharge Disposition: [...] Pump Reprogramming or Adjustment Tana S Dirk [id number] Date of Programming/Adjustment: January 12, 2012 Primary Water System Operator: Dr. Lara Filament Cutter: Dr. Dunbar Reason for Reprogramming or Adjustment: Refill Rate Adjustment: No Diagnosis: Spasticity Concomitant Medical Problems: Telemetry Pre-programming Reading: Drug: Baclofen Concentration: 1000 mcg/ml Dose Delivery per day: 195.1 mcg/day Infusion Mode: simple continuous Telemetry Post-programming Reading: Drug: Baclofen Concentration: 1000 mcg/ml Dose Delivery per day: 195.1 mcg/day Infusion Mode: simple continuous Pump Capacity: [] 20 ml [xxx] 40 ml Expected [place] Volume this visit: 4 ml Actual [place] Volume this visit: 5 ml Medication or [...] instilled into the pump according to the hydraulic tester's directions without difficulty. There was no evidence [...] Farhana Lara MD Fellow, Pain Medicine Pager [phone] documented in this encounter Miscellaneous Notes * Miscellaneous - Delbert, Timber Mill Worker - 01/15/2012 4:53 PM EDT documented in this encounter Plan of Treatment Upcoming Encounters Date Type Department Care Team (Late st Contact Info) Description 06/02/2024 12:30 PM EST Office Visit Infectious Disease at [facility] [address] Hollie Ambriz MD [facility] [place] [address] documented as of this encounter Procedures Procedure Name Priority Date/Time Associated Diagnosis Comments INTRATHECAL PUMP REFILL Routine 01/12/2012 12:44 PM EDT Abnormal involuntary movements documented in this encounter Results * INTRATHECAL PUMP REFILL (01/12/2012 12:44 PM EDT) Narrative Farhana Lara - 01/12/2012 12:44 PM EDT Pain Medicine Intrathecal Pump Reprogramming or Adjustment Tana Cavazos [id number] Date of Programming/Adjustment: January 12, 2012 Primary Water System Operator: ??Dr. Lara ?? Filament Cutter: ??Dr. Dunbar Reason for Reprogramming or Adjustment: [...] [] 20 ml [xxx] 40 ml Expected [place] Volume this visit: 4 ml Actual [place] Volume this visit: 5 ml Medication or [...] drapes were applied as provided with the Prodea Systemstronic refill kit. A 22 gauge Persaud [...] instilled into the pump according to the hydraulic tester's directions without difficulty. There was no evidence [...] Farhana Lara MD Fellow, Pain Medicine Pager [phone] Procedure Note Farhana Lara - 01/12/2012 12:43 PM EDT Pain Medicine Intrathecal Pump Reprogramming or Adjustment Tana Hayes Dirk [id number] Date of Programming/Adjustment: January 12, 2012 Primary Water System Operator: Dr. Lara Filament Cutter: Dr. Dunbar Reason for Reprogramming or Adjustment: Refill Rate Adjustment: No Diagnosis: Spasticity Concomitant Medical Problems: Telemetry Pre-programming Reading: Drug: Baclofen Concentration: 1000 mcg/ml Dose Delivery per day: 195.1 mcg/day Infusion Mode: simple continuous Telemetry Post-programming Reading: Drug: Baclofen Concentration: 1000 mcg/ml Dose Delivery per day: 195.1 mcg/day Infusion Mode: simple continuous Pump Capacity: [] 20 ml [xxx] 40 ml Expected [place] Volume this visit: 4 ml Actual [place] Volume this visit: 5 ml Medication or [...] Sterile drapes were applied as provided withthe Prodea Systemstronic refill kit. A 22 gauge Persaud [...] Farhana Lara MD Fellow, Pain Medicine Pager [phone] Bigg Dunbar MD PROCEDURE/MINOR S URGICAL ORDERABLES [...] and Dose: Baclofen 1000 mcg/ml solution Lot [id number] Given 01/12/2012 12:38 PM EDT 1 each documented in this encounter Care Teams Mobile Crane Operator Relationship Specialty Start Date End Date Naina Lindsey MD [address] [facility] [place] [address] PCP - General 03/19/10 08/25/16 documented as of this encounter
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
--- OUTSIDE RECORDS SUMMARY | 2024-01-05 18:29 | XMS_ITS | Encounter Summary ---
Author Organization [facility] [place] [address] Care Team Providers Care Elementary Assistant Teacher Name Role Phone Naina Lindsey MD Primary Care Provider [phone] Encounter Details Date Type Department Care Team (Late st Contact Info) Description 03/10/2014 Orders [place] [address] Alek Sinha, [place] [facility] PEDIATRIC [place] [address] Pre-op chest exam; Pre-op evaluation Social History [...] PM EST Office [place] [address] Hollie Ambriz MD [facility] INFECTIOUS [place] [address] documented as of this encounter Visit Diagnoses Diagnosis Pre-op chest exam Pre-operative respiratory examination Pre-op evaluation Preoperative examination, unspecified documented in this encounter Care Teams Elementary Assistant Teacher Relationship Specialty Start Date End Date Naina Lindsey MD [address] [place] [address] PCP - General 03/19/10 08/25/16 documented as of this encounter
--- OUTSIDE RECORDS SUMMARY | 2024-01-05 18:29 | XMS_ITS | Encounter Summary ---
Author Organization [facility] [place] [address] Care Team Providers Care Business Objects Name Role Phone Naina Lindsey MD Primary Care Provider Reason for Visit * Reason Comments Pain Management Encounter Details Date Type Department Care Team (Latest Contact Info) Description 02/28/2014 4:30 PM EST Procedure [place] [address] Donnell Dotson MD [facility] [place] [address] Karen Early [facility] [place] [address] Traumatic brain injury, sequela (Primary Dx) Discharge [...] 02/28/2014 4:58 PM EST Tana Cavazos 02/28/2014 [id number] Intrathecal Pump Visit Tana Cavazos presents today [...] PM EST Office [place] [address] Hollie Ambriz MD [facility] [place] [address] documented as of this encounter Visit Diagnoses Diagnosis Traumatic brain injury, sequela- Primary documented in this encounter Care Teams Business Objects Relationship Specialty Start Date End Date Naina Lindsey MD [address] [place] [address] [place] [address] PCP - General 03/19/10 08/25/16 documented as of this encounter
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
--- OUTSIDE RECORDS SUMMARY | 2024-01-05 18:29 | XMS_ITS | Encounter Summary ---
Author Organization [facility] [place] [address] Care Team Providers Care Outsole Handler Name Role Phone Naina Lindsey MD Primary Care Provider [phone] Encounter Details Date Type Department Care Team (Late st Contact Info) Description 07/08/2012 Orders [place] [address] Bigg Dunbar MD [facility] [place] [place] [address] Spasticity (Primary Dx) Social History Tobacco Use [...] EST Office Visit [place] [address] Hollie Ambriz MD [facility] [place] [address] documented as of this encounter Visit Diagnoses Diagnosis Spasticity- Primary Abnormal involuntary movements documented in this encounter Care Teams Outsole Handler Relationship Specialty Start Date End Date Naina Lindsey MD [address] [place] [address] [place] [address] PCP - General 03/19/10 08/25/16 documented as of this encounter
--- OUTSIDE RECORDS SUMMARY | 2024-01-05 18:29 | XMS_ITS | Encounter Summary ---
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 Marino Water Taxi Boat Mate: Chelsea Alva Reason for Reprogramming or Adjustment: Refill Rate Adjustment: No Diagnosis: Spasticity Concomitant Medical Problems: Telemetry Pre-programming Reading: Drug: Baclofen Concentration: 1000 mcg/ml Dose Delivery per day: 195.1 mcg/day Infusion Mode: simple continuous Telemetry Post-programming Reading: Drug: Baclofen Concentration: 1000 mcg/ml (RX #[id number], discard date 08/28/12) Dose Delivery per day: 195.1 mcg/day Infusion Mode: simple continuous Pump Capacity: [] 20 ml [xxx] 40 ml Expected [place] Volume this visit: 2.6 ml Actual [place] Volume this visit: 3.5 ml Medication or [...] drapes were applied as provided with the Interneertronic refill kit. A 22 gauge Persaud non-coring [...] instilled into the pump according to the frozen foods manager's directions without difficulty. There was no [...] PM EST Office [place] [address] Hollie Ambriz MD [facility] [place] [address] documented as of this encounter Procedures Procedure [...] Intrathecal Pump Reprogramming or Adjustment Tana Cavazos [id number] Date of Programming/Adjustment: 07/22/12 Primary Shove Up: ??Dr. Marino Water Taxi Boat Mate: ??Chelsea Alva Reason for Reprogramming or Adjustment: Refill Rate Adjustment: No Diagnosis: Spasticity Concomitant Medical Problems: ?? Telemetry Pre-programming Reading: ?? Drug: Baclofen Concentration: 1000 mcg/ml Dose Delivery per day: 195.1 mcg/day Infusion Mode: ?? simple continuous ?? Telemetry Post-programming Reading: ?? Drug: Baclofen Concentration: 1000 mcg/ml (RX #[id number], discard date 08/28/12) Dose Delivery per day: 195.1 mcg/day Infusion Mode: ?? simple continuous ? Pump Capacity: [] 20 ml [xxx] 40 ml Expected [place] Volume this visit: 2.6 ml Actual [place] Volume this visit: 3.5 ml Medication or [...] drapes were applied as provided with the Interneertronic refill kit. A 22 gauge Persaud non-coring [...] instilled into the pump according to the frozen foods manager's directions without difficulty. There was no [...] Intrathecal Pump Reprogramming or Adjustment Tana Cavazos [id number] Date of Programming/Adjustment: 07/22/12 Primary Shove Up: Dr. Marino Water Taxi Boat Mate: Chelsea Alva Reason for Reprogramming or Adjustment: Refill Rate Adjustment: No Diagnosis: Spasticity Concomitant Medical Problems: Telemetry Pre-programming Reading: Drug: Baclofen Concentration: 1000 mcg/ml Dose Delivery per day: 195.1 mcg/day Infusion Mode: simple continuous Telemetry Post-programming Reading: Drug: Baclofen Concentration: 1000 mcg/ml (RX #[id number], discard date 08/28/12) Dose Delivery per day: 195.1 mcg/day Infusion Mode: simple continuous Pump Capacity: [] 20 ml [xxx] 40 ml Expected [place] Volume this visit: 2.6 ml Actual [place] Volume this visit: 3.5 ml Medication or [...] Sterile drapes were applied as provided withthe [employer] refill kit. A 22 gauge Persaud non-coring [...] Baclofen 1000 mcg/ml - 40 ml - RX#[id number] Given 07/22/2012 9:33 AM EDT 1 each documented in this encounter Care Teams Lawn Care Specialist Relationship Specialty Start Date End Date Naina Lindsey MD [address] [place] [address] PCP - General 03/19/10 08/25/16 documented as of this encounter
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
--- OUTSIDE RECORDS SUMMARY | 2024-01-05 18:29 | XMS_ITS | Encounter Summary ---
Author Organization [facility] [place] [address] Care Team Providers Care Data Processing Specialist Name Role Phone Naina Lindsey MD Primary Care Provider [phone] Encounter Details Date Type Department Care Team (Late st Contact Info) Description 12/22/2012 Orders [place] [address] Christiano Floyd MD [facility] [place] [address] Social History Tobacco Use Types Packs/Day Years [...] PM EST Office [place] [address] Hollie Ambriz MD [facility] [place] [address] documented as of this encounter Visit Diagnoses Not on filedocumented in this encounter Care Teams Data Processing Specialist Relationship Specialty Start Date End Date Naina Lindsey MD [address] [place] [address] [place] [address] PCP - General 03/19/10 08/25/16 documented as of this encounter
--- OUTSIDE RECORDS SUMMARY | 2024-01-05 18:29 | XMS_ITS | Encounter Summary ---
Author Organization [facility] [place] [address] Care Team Providers Care Resident Care Director Name Role Phone Naina Lindsey MD Primary Care Provider [phone] Reason for Visit * Reason Onset Date Comments Medication Refill 11/08/2013 Encounter Details Date Type Department Care Team (Late st Contact Info) Description 11/08/2013 Refill [place] [phone] Aida Carey, PALLIATIVE MEDICINE PHYSICIAN Social History Tobacco Use Types Packs/Day Years [...] PM EST Office Visit [place] [address] Hollie Ambriz MD [facility] [place] [address] documented as of this encounter Visit Diagnoses Not on filedocumented in this encounter Care Teams Resident Care Director Relationship Specialty Start Date End Date Naina Lindsey MD [address] [place] [address] PCP - General 03/19/10 08/25/16 documented as of this encounter
--- OUTSIDE RECORDS SUMMARY | 2024-01-05 18:29 | XMS_ITS | Encounter Summary ---
Author Organization [facility] [place] [address] Care Team Providers Care Cut Press Operator Name Role Phone Naina Lindsey MD Primary Care Provider [phone] Reason for Visit * Reason Onset Date Comments Blindness 12/27/2011 Encounter Details Date Type Department Care Team (Late st Contact Info) Description 12/27/2011 Telephone [place] [address] Aquiles Smith MD [facility] [place] [address] Blindness Social History Tobacco Use Types Packs/Day [...] Office [place] [address] Hollie Ambriz MD [facility] [place] [address] documented as of this encounter Visit Diagnoses Not on filedocumented in this encounter Care Teams Cut Press Operator Relationship Specialty Start Date End Date Naina Lindsey MD [address] [place] [address] [place] [address] PCP - General 03/19/10 08/25/16 documented as of this encounter
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
--- OUTSIDE RECORDS SUMMARY | 2024-01-05 18:29 | XMS_ITS | Encounter Summary ---
Author Organization [facility] [place] [address] Care Team Providers Care Inspector Golf Ball Name Role Phone Naina Lindsey MD Primary Care Provider [phone] Reason for Visit * Reason Comments Pain Pain, Chronic Encounter Details Date Type Department Care Team (Latest Contact Info) Description 03/15/2014 4:45 PM EST Procedure [place] [address] Donnell Dotson MD [facility] [place] [place] [address] Presence of intrathecal baclofen pump; Abnormal involuntary movements(731.0) Discharge Disposition: Home Social History Tobacco Use [...] 25 mcg per day. Donnell Dotson MD Inside Sales Agent of Anesthesiology [facility] documented in this encounter Plan of Treatment Upcoming Encounters Date Type Department Care Team (Late st Contact Info) Description 06/02/2024 12:30 PM EST Office Visit [place] [address] Hollie Ambriz MD [facility] [place] [address] documented as of this encounter Procedures Procedure [...] 25 mcg per day. Donnell Dotson MD Inside Sales Agent of Anesthesiology [facility] Donnell Dotson MD PROCEDURE/MINOR SURG ICAL ORDERABLES documented in this encounter Visit Diagnoses Diagnosis Presence of intrathecal baclofen pump Abnormal involuntary movements(781.0) Abnormal involuntary movements documented in this encounter Care Teams Inspector Golf Ball Relationship Specialty Start Date End Date Naina Lindsey MD [address] [place] [address] PCP - General 03/19/10 08/25/16 documented as of this encounter
--- OUTSIDE RECORDS SUMMARY | 2024-01-05 18:29 | XMS_ITS | Encounter Summary ---
Author Organization [facility] [place] [address] Care Team Providers Care Gold Assayer Name Role Phone Naina Lindsey MD Primary Care Provider [phone] Encounter Details Date Type Department Care Team (Late st Contact Info) Description 07/12/2012 Telephone [place] [phone] Aniket Heredia MD [facility] [place] [address] Social History Tobacco Use Types Packs/Day Years [...] child evaluated in the ED at [facility] over the weekend and today again at her color depositing machine tender's office. She reports that Tana seems [...] this plan. Aniket Heredia MD Pain fellow [facility] documented in this encounter Plan of Treatment Upcoming Encounters Date Type Department Care Team (Late st Contact Info) Description 06/02/2024 12:30 PM EST Office [place] [address] Hollie Ambriz MD [facility] [place] [address] documented as of this encounter Visit Diagnoses Not on filedocumented in this encounter Care Teams Gold Assayer Relationship Specialty Start Date End Date Naina Lindsey MD [address] [place] [address] [place] [address] PCP - General 03/19/10 08/25/16 documented as of this encounter
--- OUTSIDE RECORDS SUMMARY | 2024-01-05 18:29 | XMS_ITS | Encounter Summary ---
Author Organization [facility] [place] [address] Care Team Providers Care Enterprise Software Engineer Name Role Phone Naina Lindsey MD Primary Care Provider [phone] Encounter Details Date Type Department Care Team (Late st Contact Info) Description 06/30/2011 Orders [place] [address] Boyd Dillon MD [facility] [place] [address] Spasticity (Primary Dx) Social History Tobacco Use [...] PM EST Office [place] [address] Hollie Ambriz MD [facility] [place] [address] documented as of this encounter Visit Diagnoses Diagnosis Spasticity- Primary Abnormal involuntary movements documented in this encounter Care Teams Enterprise Software Engineer Relationship Specialty Start Date End Date Naina Lindsey MD [address] [place] [address] [place] [address] PCP - General 03/19/10 08/25/16 documented as of this encounter
--- OUTSIDE RECORDS SUMMARY | 2024-01-05 18:29 | XMS_ITS | Encounter Summary ---
[place] [address] Care Team Providers Care Slp Name Role Phone Naina Lindsey MD Primary Care Provider [phone] Encounter Details Date Type Department Care Team (Late st Contact Info) Description 08/01/2012 Notes [place] [address] Chelsea Alva RN Social History Tobacco Use [...] Visit [place] [address] Hollie Ambriz MD [facility] INFECTI[place] [address] documented as of this encounter Visit Diagnoses Not on filedocumented in this encounter Care Teams Slp Relationship Specialty Start Date End Date Naina Lindsey MD [address] [place] [address] [place] [address] PCP - General 03/19/10 08/25/16 documented as of this encounter
--- OUTSIDE RECORDS SUMMARY | 2024-01-05 18:29 | XMS_ITS | Encounter Summary ---
Author Organization [facility] [place] [address] Care Team Providers Care Plant Engineering Manager Name Role Phone Naina Lindsey MD Primary Care Provider Encounter Details Date Type Department Care Team (Late st Contact Info) Description 07/08/2012 Orders [place] [address] Aniket Heredia MD [facility] [place] [address] Spasticity (Primary Dx) Social History [...] PM EST Office [place] [address] Hollie Ambriz MD [facility] INFECTIOUS [place] [address] documented as of this encounter Visit Diagnoses Diagnosis Spasticity- Primary Abnormal involuntary movements documented in this encounter Care Teams Plant Engineering Manager Relationship Specialty Start Date End Date Naina Lindsey MD [address] [place] [address] PCP - General 03/19/10 08/25/16 documented as of this encounter
--- OUTSIDE RECORDS SUMMARY | 2024-01-05 18:29 | XMS_ITS | Encounter Summary ---
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 (Girls, 2- 20 Years) documented [...] see notes below for detail Tana Cavazos [id number] Date of Refill: 04/25/11 Primary Band Bias Machine Operator: Dr. Zaldivar Supervisor Salvage: Dr. Dillon Reason for Reprogramming: Refill/weaning Diagnosis: [...] instilled into the pump according to the history professor's directions without difficulty. There was no evidence [...] medication. Nitin Zaldivar MD Fellow, Pain Medicine 8481 documented in this encounter Miscellaneous Notes * Miscellaneous - Delbert, Fabric Normalizer - 05/01/2011 2:01 PM EST documented in this encounter Plan of Treatment Upcoming Encounters Date Type Department Care Team (Late st Contact Info) Description 06/02/2024 12:30 PM EST Office Visit [place] [address] Hollie Ambriz MD [facility] [place] [address] documented as of this encounter Visit Diagnoses [...] each documented in this encounter Care Teams Protein Specialist Relationship Specialty Start Date End Date Naina Lindsey MD [address] [place] [address] PCP - General 03/19/10 08/25/16 documented as of this encounter
--- OUTSIDE RECORDS SUMMARY | 2024-01-05 18:29 | XMS_ITS | Encounter Summary ---
[place] [address] Care Team Providers Care Tester Waste Disposal Leakage Name Role Phone Naina Lindsey MD Primary Care Provider [phone] Reason for Visit * Reason Comments Pain Encounter Details Date Type Department Care Team (Latest Contact Info) Description 01/25/2014 4:00 PM EDT Procedure [place] [address] [facility] [place] [address] Traumatic brain injury, subsequent encounter (Primary Dx) [...] Pump Reprogramming Only Procedure Note Tana Cavazos [id number] Date of Refill: January 25, 2014 Primary Cargo Trimmer: KARNE EARLY DO General Sales Manager: Donnell Dotson MD Reason for Reprogramming: NA 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 Prior to this surgery the patient [...] available to conference the patient's physicians at [facility] as this decision is made. The mother will contact the orthopedic surgeon who performed the procedure to get his input as to whether he feels the baclofen has been helping. She will also request referral to a pediatric physiatry doctor at [facility] and will contact us back [...] PM EST Office [place] [address] Hollie Ambriz MD [facility] [place] [address] documented as of this encounter Visit Diagnoses Diagnosis Traumatic brain injury, subsequent encounter- Primary documented in this encounter Care Teams Tester Waste Disposal Leakage Relationship Specialty Start Date End Date Naina Lindsey MD [address] [place] [address] [place] [address] PCP - General 03/19/10 08/25/16 documented as of this encounter
--- OUTSIDE RECORDS SUMMARY | 2024-01-05 18:29 | XMS_ITS | Encounter Summary ---
Author Organization [facility] [place] [address] Care Team Providers Care Gutter Hanger Name Role Phone Naina Lindsey MD Primary Care Provider [phone] Reason for Visit * Reason Comments Other pump wean Encounter Details Date Type Department Care Team (Latest Contact Info) Description 02/09/2014 11:45 AM EDT Procedure [place] [address] Donnell Dotson MD [facility] [place] [address] Traumatic brain injury, sequela; Abnormal involuntary movements(281.0) Discharge Disposition: Home Social History Tobacco Use [...] to your electronic medical record at [facility] and the ability to communicate with [...] the instructions. Here is your activation code: [email or web address] Expires: 03/26/2014 12:29 PM Remember, my[facility] is NOT for urgent needs! Always dial 911 for medical emergencies. documented in this encounter Procedure Notes * Donnell Dotson MD - 02/09/2014 2:59 PM EDTAssociated Order(s): INTRATHECAL PUMP REPROGRAMMING Pre-Procedure Diagnose(s): Abnormal involuntary movements(781.0) Patient and mother coming today. Since he was last seen, the orthopedic surgeons and the rest of the team at [facility] have agreed that she no longer needs the intrathecal baclofen. She like to be tapered off the baclofen before the pump is basically no longer effective, 3 months from now. Looking at the [employer] website and calling the local [employer] baclofen pump logistics service representative, we decided to decrease her pump [...] PM EST Office [place] [address] Hollie Ambriz MD [facility] [place] [address] documented as of this encounter Procedures Procedure [...] and the rest of the team at [facility] have agreed that she no longer needs the intrathecal baclofen. She like to be tapered off the baclofen before the pump is basically no longer effective, 3 months from now. Looking at the [employer] website and calling the local [employer] baclofen pump logistics service representative, we decided to decrease her pump [...] the rest of the team at [facility] haveagreed that she no longer needs the intrathecal baclofen. She like to betapered off the baclofen before the pump is basically no longer effective,3 months from now. Looking at the [employer] website and calling the local [employer] baclofenpump logistics service representative, we decided to decrease her pump [...] movements documented in this encounter Care Teams Gutter Hanger Relationship Specialty Start Date End Date Naina Lindsey MD [address] [place] [address] PCP - General 03/19/10 08/25/16 documented as of this encounter
--- OUTSIDE RECORDS SUMMARY | 2024-01-05 18:29 | XMS_ITS | Encounter Summary ---
Author Organization [facility] Address [facility] [place] [address] Care Team Providers Care Ordnance Truck Installation Mechanic Name Role Phone Naina Lindsey MD Primary Care Provider [phone] Encounter Details Date Type Department Care Team (Latest Contact Info) Description 12/16/2011 12:15 PM EDT - 12/16/2011 11:59 PM EDT Hospital Encounter XRay at [address] [place] [address] CLINIC, Joesph Sheikh Jr., MD [facility] [place] [address] Aquiles Smith MD [facility] [place] [place] [address] Scoliosis Discharge Disposition: Home Social History Tobacco [...] PM EST Office [place] [address] Hollie Ambriz MD [facility] [place] [address] documented as of this encounter Procedures Procedure [...] documented in this encounter Care Teams Ordnance Truck Installation Mechanic Relationship Specialty Start Date End Date Naina Lindsey MD [address] [place] [address] [place] [address] PCP - General 03/19/10 08/25/16 documented as of this encounter
--- OUTSIDE RECORDS SUMMARY | 2024-01-05 18:29 | XMS_ITS | Encounter Summary ---
Author Organization Formerly [facility] [place] [address] Care Team Providers Care Superintendent Commissary Name Role Phone Naina Lindsey MD Primary Care Provider [phone] Encounter Details Date Type Department Care Team (Late st Contact Info) Description 06/16/2013 Orders [place] [address] Christiano Floyd MD [facility] [place] [address] Social History Tobacco Use Types Packs/Day Years [...] PM EST Office [place] [address] Hollie Ambriz MD [facility] DR [place] [address] documented as of this encounter Visit Diagnoses Not on filedocumented in this encounter Care Teams Superintendent Commissary Relationship Specialty Start Date End Date Naina Lindsey MD [address] [place] [address] [place] [address] PCP - General 03/19/10 08/25/16 documented as of this encounter
--- OUTSIDE RECORDS SUMMARY | 2024-01-05 18:29 | XMS_ITS | Encounter Summary ---
Author Organization [facility] [place] [address] Care Team Providers Care Tool Designer Apprentice Name Role Phone Lorna Bal APRN Primary Care Provider [phone] Encounter Details Date Type Department Care Team (Late st Contact Info) Description 12/21/2013 Interpretation [place] [phone] Chuckie Mayfield MD [facility] [place] [address] Social History Tobacco Use Types Packs/Day Years [...] PM EST Office [place] [address] Hollie Ambriz MD [facility] [place] [address] documented as of this encounter Procedures Procedure Name Priority Date/Time Associated Diagnosis Comments FILM LIBRARY STORAGE ONLY DX WRIST Routine 12/21/2013 1:40 PM EDT documented in this encounter Results * Film Library- Storage Only DX Wrist (12/21/2013 1:40 PM EDT) 08/10/2023 3:14 PM EDT Narrative [facility] - 08/10/2023 3:14 PM EDT This exam is auto-finalizing. It's purpose is for storage only. Chuckie Mayfield MD IMG FILM LIBRARY ORD ERABLES [place], [place] documented in this encounter Visit Diagnoses [...] documented as of this encounter Care Teams Tool Designer Apprentice Relationship Specialty Start Date End Date Lorna Bal APRN [address] [place] [address] PCP - General Family Medicine 05/27/18 documented as of this encounter
--- OUTSIDE RECORDS SUMMARY | 2024-01-05 18:29 | XMS_ITS | Encounter Summary ---
Author Organization [facility] [place] [address] Care Team Providers Care B2B Sales Manager Name Role Phone Naina Lindsey MD Primary Care Provider [phone] Encounter Details Date Type Department Care Team (Late st Contact Info) Description 05/11/2014 7:31 AM EST Anesthesia Event [place] [address] Danielle Kwan MD [facility] [place] [address] Anesthesia Record Procedure Summary Procedure Name Responsible [...] (LDA cleanup utility RA#[id number]) 05/11/14 0000 by Gloira Salmon RN 12/23/21 1715 by Philippe Bonner Drain/Device Site 05/11/14; Right; low er; abdomen; collapsible closed device; not present on assessment (10 fr round drain. ); 06/24/22; 1417 05/11/14 0000 by Gloria Salmon RN 06/24/22 141 by Kristel Oneil, EUNICE (RETIRED) Peripheral IV Line - Single Lumen 05/11/14; 0731; metacarpal vein right (top of hand); [id number] catheter system; 22 gauge; [place]; 05/12/14; 141605/11/14 [...] FEMORAL HEAD, BILATERAL performed by BARRERA OLIVER [facility] MAIN OR ??? Apply of hip casts, two legs 08/15/2010 CAST APPLICATION, HIP SPICA, BOTH LEGS performed by BARRERA OLIVER at [facility] MAIN OR ??? Removal deep implant 08/15/2010 REMOVAL IMPLANT, DEEP, BRUNO performed by BARRERA OLIVER at [facility] MAIN OR ??? Osteotomy femur shaft/supracondy 08/15/2010 ??OSTEOTOMY, FEMUR SHAFT OR SUPRACONDYLAR W/O FIXATION performed by BARRERA OLIVER at [facility] MAIN OR History Substance Use Topics [...] full Cardiovascular Assessment: Pulmonary Assessment: [facility] Plan: ASA 2 general, [...] and mother whom consented to blood products. [facility] Assessment: documented in this encounter Plan of Treatment Upcoming Encounters Date Type Department Care Team (Late st Contact Info) Description 06/02/2024 12:30 PM EST Office Visit [facility] Disease at [facility] [place] [address] Hollie Ambriz MD [facility] [place] [address] documented as of this encounter Visit Diagnoses [...] mg documented in this encounter Care Teams B2B Sales Manager Relationship Specialty Start Date End Date Naina Lindsey MD [address] [place] [address] PCP - General 03/19/10 08/25/16 documented as of this encounter
--- OUTSIDE RECORDS SUMMARY | 2024-01-05 18:29 | XMS_ITS | Encounter Summary ---
Author Organization [facility] [place] [address] Care Team Providers Care Foreign Exchange Dealer Name Role Phone Naina Lindsey MD Primary Care Provider [phone] Reason for Visit * Reason Comments Cerebral Palsy Encounter Details Date Type Department Care Team (Latest Contact Info) Description 07/11/2011 8:30 AM EDT Procedure [place] [phone] Yudelka Coyne MD [facility] [place] [address] Spasticity (Primary Dx); Abnormal involuntary movements Discharge [...] provided the care. Christiana Woods DO N [facility] PAIN MANAGEMENT [place] [address] Dept: [phone] * Yudelka Coyne MD - 07/11/2011 10:56 AM EDT INTRATHECAL PUMP REFILL PROCEDURE NOTE WITH REPROGRAMMING Primary Tour Consultant: Dr. Steffany Coyne Project Asst: Lucia Mazariegos LPN Reason for Reprogramming: refill [...] different? no Empty syringe concentration verified by program checker: no If concentration of drug is [...] drapes were applied as provided with the [employer] refill kit. A 22 gauge Persaud non-coring [...] instilled into the pump according to the v block saw operator's directions without difficulty. There was no [...] PM EST Office Visit [place] [address] Hollie Ambriz MD [facility] [place] [address] Scheduled Orders Name Type Priority Associated Diagnoses [...] each documented in this encounter Care Teams Foreign Exchange Dealer Relationship Specialty Start Date End Date Naina Lindsey MD [address] [place] [address] PCP - General 03/19/10 08/25/16 documented as of this encounter
--- OUTSIDE RECORDS SUMMARY | 2024-01-05 18:29 | XMS_ITS | Encounter Summary ---
Author Organization [facility] [address] Care Team Providers Care Liquefaction Plant Operator Name Role Phone Naina Lindsey MD Primary Care Provider [phone] Encounter Details Date Type Department Care Team (Late st Contact Info) Description 12/21/2013 1:30 PM EDT Ancillary Procedure [place] [address] Chuckie Mayfield MD [facility] [place] [address] Social History Tobacco Use Types Packs/Day Years [...] PM EST Office [place] [address] Hollie Ambriz MD [facility] [place] [address] documented as of this encounter Procedures Procedure Name Priority Date/Time Associated Diagnosis Comments FILM LIBRARY STORAGE ONLY DX UPPER EXTREMITY Routine 12/21/2013 1:30 PM EDT documented in this encounter Results * Film Library- Storage Only DX Upper Extremity (12/21/2013 1:30 PM EDT) 08/10/2023 3:14 PM EDT Narrative [facility] - 08/10/2023 3:14 PM EDT This exam is auto-finalizing. It's purpose is for storage only. Chuckie Mayfield MD IMG FILM LIBRARY ORD ERABLES [place], [place] documented in this encounter Visit Diagnoses Not on filedocumented in this encounter Care Teams Liquefaction Plant Operator Relationship Specialty Start Date End Date Naina Lindsey MD [address] [place] [address] PCP - General 03/19/10 08/25/16 documented as of this encounter
--- OUTSIDE RECORDS SUMMARY | 2024-01-05 18:29 | XMS_ITS | Encounter Summary ---
Author Organization [facility] [place] [address] Care Team Providers Care Diamond Wheel Molder Name Role Phone Naina Lindsey MD Primary Care Provider [phone] Encounter Details Date Type Department Care Team (Late st Contact Info) Description 04/15/2011 Orders Only [place] [address] Margaux Godfrey MD [facility] [address] PAIN CLINIC [place], [place] [phone] Spasticity (Primary Dx) Social History Tobacco Use [...] PM EST Office [place] [address] Hollie Ambriz MD [facility] [place] [address] documented as of this encounter Visit Diagnoses Diagnosis Spasticity- Primary Abnormal involuntary movements documented in this encounter Care Teams Diamond Wheel Molder Relationship Specialty Start Date End Date Naina Lindsey MD [address] [place] [address] PCP - General 03/19/10 08/25/16 documented as of this encounter
--- OUTSIDE RECORDS SUMMARY | 2024-01-05 18:29 | XMS_ITS | Encounter Summary ---
Author Organization [facility] [place] [address] Care Team Providers Care Raw Material Planner Name Role Phone Naina Lindsey MD Primary Care Provider [phone] Encounter Details Date Type Department Care Team (Late st Contact Info) Description 12/21/2013 1:40 PM EDT Ancillary Procedure [place] [address] Chuckie Mayfield MD [facility] [place] [address] Social History Tobacco Use Types Packs/Day Years [...] PM EST Office [place] [address] Hollie Ambriz MD [facility] [place] [address] documented as of this encounter Procedures Procedure Name Priority Date/Time Associated Diagnosis Comments FILM LIBRARY STORAGE ONLY DX WRIST Routine 12/21/2013 1:40 PM EDT documented in this encounter Results * Film Library- Storage Only DX Wrist (12/21/2013 1:40 PM EDT) 08/10/2023 3:14 PM EDT Narrative [facility] - 08/10/2023 3:14 PM EDT This exam is auto-finalizing. It's purpose is for storage only. Chuckie Mayfield MD IMG FILM LIBRARY ORD ERABLES [place], [place] documented in this encounter Visit Diagnoses Not on filedocumented in this encounter Care Teams Raw Material Planner Relationship Specialty Start Date End Date Naina Lindsey MD [address] [place] [address] PCP - General 03/19/10 08/25/16 documented as of this encounter
--- OUTSIDE RECORDS SUMMARY | 2024-01-05 18:29 | XMS_ITS | Encounter Summary ---
Author Organization [facility] [place] [address] Care Team Providers Care Senior Site Manager Name Role Phone Naina Lindsey MD Primary Care Provider [phone] Encounter Details Date Type Department Care Team (Late st Contact Info) Description 01/05/2012 Orders [place] [address] Christiano Floyd MD [facility] [place] [address] Spasticity (Primary Dx) Social History [...] PM EST Office [place] [address] Hollie Ambriz MD [facility] [place] [address] documented as of this encounter Visit Diagnoses Diagnosis Spasticity- Primary Abnormal involuntary movements documented in this encounter Care Teams Senior Site Manager Relationship Specialty Start Date End Date Naina Lindsey MD [address] [place] [address] [place] [address] PCP - General 03/19/10 08/25/16 documented as of this encounter
--- OUTSIDE RECORDS SUMMARY | 2024-01-05 18:29 | XMS_ITS | Encounter Summary ---
Author Organization [facility] Benjamin [facility] [place] [address] Care Team Providers Care Oil Distributor Name Role Phone Naina Lindsey MD Primary Care Provider [phone] Reason for Visit * Reason Comments Bilateral Leg Pain CP Encounter Details Date Type Department Care Team (Late st Contact Info) Description 05/19/2011 10:40 AM EST [place] [address] Yas Ramirez MD [facility] [place] [address] TBI (traumatic brain injury) (Primary Dx); Scoliosis; [...] PM EST Office [place] [address] Hollie Ambriz MD [facility] [place] [address] documented as of this encounter Results * [...] idiopathic documented in this encounter Care Teams Oil Distributor Relationship Specialty Start Date End Date Naina Lindsey MD [address] [place] [address] PCP - General 03/19/10 08/25/16 documented as of this encounter
--- OUTSIDE RECORDS SUMMARY | 2024-01-05 18:29 | XMS_ITS | Encounter Summary ---
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 Dotson Reason for Reprogramming: Pump alarm date approaching Diagnosis: Spacticity, traumatic head injury Telemetry Pre-programming Reading: Drug Concentration Daily Dose Baclofen 1,000 mcg/ ml 195.1 mcg/ day Telemetry Post-programming Reading: Drug Concentration Daily Dose Brand (B) or Compound (C) Lot number Baclofen 1,000 mcg/ ml 195.1 mcg/ day Compound #[id number] Simple Continuous Rx # [id number] Exp. 02/05/13 Pump Capacity: 40 ml Computer Predicted Residual Volume in Pump (ml): 4.5 ml Measured Residual volume in Pump (ml): 5.8 ml Medication or Dose Changes: no Is dose change > 30%? n/a Is concentration or drug different? no Empty syringe concentration verified by purchase order checker: yes If concentration or drug is [...] instilled into the pump according to the buckle stapler's directions without difficulty. There was no evidence [...] PM EST Office [place] [address] Hollie Ambriz MD [facility] [place] [address] documented as of this encounter Procedures Procedure [...] with Reprogramming Procedure Note Tana Cavazos ? [id number] Date of Refill: January 20, 2013 Primary Cargo Checker: ASHKAN BRANTLEY APRN Armature Bander: Dr. Dotson Reason for Reprogramming: ??Pump alarm date approaching Diagnosis: ??Spacticity, traumatic head injury Telemetry Pre-programming Reading: Drug Concentration Daily Dose Baclofen 1,000 mcg/ ml 195.1 mcg/ day ? Telemetry Post-programming Reading: ?? Drug Concentration Daily Dose Brand (B) or Compound (C) Lot number Baclofen 1,000 mcg/ ml 195.1 mcg/ day Compound #[id number] Simple Continuous ?? Rx # [id number] Exp. 02/05/13 ? Pump Capacity: ??40 ml Computer Predicted Residual Volume in Pump (ml): ??4.5 ml Measured Residual volume in Pump (ml): 5.8 ml Medication or Dose Changes: ?no Is dose change > 30%?n/a Is concentration or drug different? ??no Empty syringe concentration verified by purchase order checker: ?? yes If concentration or drug [...] drapes were applied as provided with the ??[employer] refill kit. A 22 gauge Persaud non-coring [...] instilled into the pump according to the buckle stapler's directions without difficulty. There was no evidence [...] Pump with Reprogramming Procedure Note Tana Cavazos [id number] Date of Refill: January 20, 2013 Primary Cargo Checker: ASHKAN BRANTLEY APRN Armature Bander: Dr. Dotson Reason for Reprogramming: Pump alarm date approaching Diagnosis: Spacticity, traumatic head injury Telemetry Pre-programming Reading: Drug Concentration Daily Dose Baclofen 1,000 mcg/ ml 195.1 mcg/ day Telemetry Post-programming Reading: Drug Concentration Daily Dose Brand (B) or Compound (C) Lot number Baclofen 1,000 mcg/ ml 195.1 mcg/ day Compound #[id number] Simple Continuous Rx # [id number] Exp. 02/05/13 Pump Capacity: 40 ml Computer Predicted Residual Volume in Pump (ml): 4.5 ml Measured Residual volume in Pump (ml): 5.8 ml Medication or Dose Changes: no Is dose change > 30%? n/a Is concentration or drug different? no Empty syringe concentration verified by purchase order checker: yes If concentration or drug is [...] wasinstilled into the pump according to the buckle stapler's directions withoutdifficulty. There was no evidence of [...] procedure well [facility] Follow-up appointments will be arranged for [...] each documented in this encounter Care Teams Secretary Bookkeeper Relationship Specialty Start Date End Date Naina Lindsey MD [address] [place] [address] PCP - General 03/19/10 08/25/16 documented as of this encounter
--- OUTSIDE RECORDS SUMMARY | 2024-01-05 18:29 | XMS_ITS | Encounter Summary ---
Author Organization [facility] [place] [address] Care Team Providers Care De Icer Installer Name Role Phone Naina Lindsey MD Primary Care Provider [phone] Reason for Visit * Reason Comments Pain Encounter Details Date Type Department Care Team (Latest Contact Info) Description 02/15/2014 4:45 PM EDT Procedure [place] [address] Donnell Dotson MD [facility] [place] [address] Spasticity; Abnormal involuntary movements(711.0) Discharge Disposition: Home Social History Tobacco Use [...] PM EST Office [place] [address] Hollie Ambriz MD [facility] DR [place] [address] documented as of this encounter Procedures Procedure [...] movements documented in this encounter Care Teams De Icer Installer Relationship Specialty Start Date End Date Naina Lindsey MD [address] [place] [address] PCP - General 03/19/10 08/25/16 documented as of this encounter
--- OUTSIDE RECORDS SUMMARY | 2024-01-05 18:29 | XMS_ITS | Encounter Summary ---
Author Organization [facility] [place] [address] Care Team Providers Care Sod Stripper Name Role Phone Naina Lindsey MD Primary Care Provider [phone] Encounter Details Date Type Department Care Team (Late st Contact Info) Description 07/12/2012 Telephone [place] [address] Aniket Heredia MD [facility] [place] [address] Social History Tobacco Use Types Packs/Day Years [...] Office [place] [address] Hollie Ambriz MD [facility] [place] [address] documented as of this encounter Visit Diagnoses Not on filedocumented in this encounter Care Teams Sod Stripper Relationship Specialty Start Date End Date Naina Lindsey MD [address] [place] [address] PCP - General 03/19/10 08/25/16 documented as of this encounter
--- OUTSIDE RECORDS SUMMARY | 2024-01-05 18:29 | XMS_ITS | Encounter Summary ---
Author Organization [facility] [address] Care Team Providers Care Inking Machine Tender Name Role Phone Naina Lindsey MD Primary Care Provider [phone] Reason for Visit * Reason Comments Pain Management Encounter Details Date Type Department Care Team (Latest Contact Info) Description 04/25/2014 4:15 PM EST Procedure [place] [address] Donnell Dotson MD [facility] [place] [address] Spasticity; Presence of intrathecal baclofen pump; Cerebral [...] PM EST Office [place] [address] Hollie Ambriz MD [facility] [place] [address] documented as of this encounter Procedures Procedure [...] unspecified documented in this encounter Care Teams Inking Machine Tender Relationship Specialty Start Date End Date Naina Lindsey MD [address] [place] [address] PCP - General 03/19/10 08/25/16 documented as of this encounter
--- OUTSIDE RECORDS SUMMARY | 2024-01-05 18:29 | XMS_ITS | Encounter Summary ---
Author Organization [facility] Address [facility] [place] [address] Care Team Providers Care Lead Vulcanizing Operator Name Role Phone Naina Lindsey MD Primary Care Provider [phone] Reason for Referral * Consultation (Routine) - Closed Specialty Diagnoses / Procedures Referred By Contac t Referred To Contact Pediatric Neurosurgery Diagnoses Baclofen pump failure, initial encounter Donnell Dotson MD [facility] [place] [address] Jamaal Samuel MD [facility] [place] [address] Referral ID Status Reason Start Date Expiration Date V isits Requested Visits Authorized [id number] Closed Consult, Test & Treat 02/15/2014 08/14/2014 1 1 Encounter Details Date Type Department Care Team (Late st Contact Info) Description 02/15/2014 Orders [place] [address] Donnell Dotson MD [facility] PAIN CLINIC [place] [id number] Baclofen pump failure, initial encounter Social History [...] Office [place] [address] Hollie Ambriz MD [facility] [place] [address] Scheduled Referrals Name Type Priority Associated Diagnoses Order Schedule Referral to Pediatric Neurosurgery Outpatient Referral Routine Baclofen pump failure, initial encounter Ordered: 02/15/2014 documented as of this encounter Visit Diagnoses Diagnosis Baclofen pump failure, initial encounter documented in this encounter Care Teams Lead Vulcanizing Operator Relationship Specialty Start Date End Date Naina Lindsey MD [address] [place] [address] PCP - General 03/19/10 08/25/16 documented as of this encounter
--- OUTSIDE RECORDS SUMMARY | 2024-01-05 18:29 | XMS_ITS | Encounter Summary ---
Author Organization [facility] [place] [address] Care Team Providers Care House Father Name Role Phone Naina Lindsey MD Primary Care Provider Encounter Details Date Type Department Care Team (Late st Contact Info) Description 07/20/2012 Orders [place] [address] Bigg Dunbar MD [facility] [place] [address] Social History Tobacco Use Types Packs/Day Years [...] PM EST Office [place] [address] Hollie Ambriz MD [facility] DR INFECTIOUS DISEASE [place], [place] [phone] documented as of this encounter Visit Diagnoses Not on filedocumented in this encounter Care Teams House Father Relationship Specialty Start Date End Date Naina Lindsey MD [address] [place] [address] PCP - General 03/19/10 08/25/16 documented as of this encounter
--- OUTSIDE RECORDS SUMMARY | 2024-01-05 18:29 | XMS_ITS | Encounter Summary ---
Author Organization [facility] [place] [address] Care Team Providers Care Service Control Operator Name Role Phone Naina Lindsey MD Primary Care Provider [phone] Encounter Details Date Type Department Care Team (Latest Contact Info) Description 05/03/2014 4:15 PM EST Procedure [place] [phone] Donnell Dotson MD [facility] [place] [address] Presence of intrathecal baclofen pump Discharge Disposition: [...] Jamaal Samuel relatively soon. Donnell Dotson MD Pediatrics Hospitalist of Anesthesiology [facility] documented in this encounter Plan of Treatment Upcoming Encounters Date Type Department Care Team (Late st Contact Info) Description 06/02/2024 12:30 PM EST Office Visit [place] [address] Hollie Ambriz MD [facility] [place] [address] documented as of this encounter Visit Diagnoses Diagnosis Presence of intrathecal baclofen pump documented in this encounter Care Teams Service Control Operator Relationship Specialty Start Date End Date Naina Lindsey MD [address] [place] [address] [place] [address] PCP - General 03/19/10 08/25/16 documented as of this encounter
--- OUTSIDE RECORDS SUMMARY | 2024-01-05 18:29 | XMS_ITS | Encounter Summary ---
Author Organization [facility] [place] [address] Care Team Providers Care Pricing Clerk Name Role Phone Naina Lindsey MD Primary Care Provider [phone] Encounter Details Date Type Department Care Team (Late st Contact Info) Description 03/03/2014 External [place] [address] Donnell Dotson MD [facility] [place] [address] Social History Tobacco Use Types [...] PM EST Office [place] [address] Hollie Ambriz MD [facility] [place] [address] documented as of this encounter Procedures Procedure Name Priority Date/Time Associated Diagnosis Comments IMPLANTABLE DEVICES SCAN Routine 02/28/2014 8:00 AM EST IMPLANTABLE DEVICES SCAN Routine 02/15/2014 8:41 AM EDT IMPLANTABLE DEVICES SCAN Routine 02/09/2014 8:42 AM EDT IMPLANTABLE DEVICES SCAN Routine 01/25/2014 9:19 AM EDT documented in this encounter Visit Diagnoses Not on filedocumented in this encounter Care Teams Pricing Clerk Relationship Specialty Start Date End Date Naina Lindsey MD [address] [place] [address] PCP - General 03/19/10 08/25/16 documented as of this encounter
--- OUTSIDE RECORDS SUMMARY | 2024-01-05 18:29 | XMS_ITS | Encounter Summary ---
Author Organization [facility] [place] [address] Care Team Providers Care Middle School Math Teacher Name Role Phone Naina Lindsey MD Primary Care Provider [phone] Encounter Details Date Type Department Care Team (Late st Contact Info) Description 05/03/2014 Unscheduled Encounter [place] [address] Alek Sinha, JIG BORING MACHINE SET UP OPERATOR [facility] [place] [address] Spasticity Social History Tobacco Use Types Packs/Day [...] her tone. She has been seen at [facility] by Barron Dotson who has weaned the [...] PM EST Office [place] [address] Hollie Ambriz MD [facility] [place] [address] documented as of this encounter Visit Diagnoses Diagnosis Spasticity Abnormal involuntary movements documented in this encounter Care Teams Middle School Math Teacher Relationship Specialty Start Date End Date Naina Lindsey MD [address] [place] [address] PCP - General 03/19/10 08/25/16 documented as of this encounter
--- OUTSIDE RECORDS SUMMARY | 2024-01-05 18:29 | XMS_ITS | Encounter Summary ---
Author Organization [facility] [place] [address] Care Team Providers Care Vice President Sales And Marketing Name Role Phone Naina Lindsey MD Primary Care Provider [phone] Reason for Referral * Consultation (Routine) - Closed Specialty Diagnoses / Procedures Referred By Contac t Referred To Contact Pain Management Diagnoses Scoliosis Jamar Dodd III, MD [facility] [place] [address] [facility] [address] [place] [address] Referral ID Status Reason Start Date Expiration Date V isits Requested Visits Authorized [id number] Closed Consult Only 12/16/2011 06/13/2012 1 1 * Consultation (Routine) - Complete - Unable to Contact Patient Specialty Diagnoses / Procedures Referred By Contac t Referred To Contact Pediatrics Diagnoses Scoliosis pre operative evaluation and to establish contact for future surgery at [facility] per Jamar Whiting III, MD [facility] [place] [address] [facility] [address] [place] [phone] Referral ID Status Reason Start Date Expiration Date Visits Requested Visits Authorized [id number] Complete - Unable to Contact Patient Consult Only 12/16/2011 06/13/2012 1 1 * Surgical (Routine) - Closed by system - Referral Specialty Diagnoses / Procedures Referred By Contac t Referred To Contact Anesthesiology Diagnoses Scoliosis Aquiles Smith MD [facility] [place] [address] [place] [address] Referral ID Status Reason Start Date Expiration Date Visits Requested Visits Authorized [id number] Closed by system - Referral Consult, Test & Treat 12/16/2011 06/13/2012 1 1 Reason for Visit * Reason Comments Follow Up Surgery Bilat. Hip DOS 2010 Encounter Details Date Type Department Care Team (Late st Contact Info) Description 12/16/2011 1:30 PM EDT Office Visit Orthopaedics at [place] [phone] Aquiles Smith MD [facility] [place] [address] Scoliosis (Primary Dx) Discharge Disposition: Home Social [...] Office [place] [address] Hollie Ambriz MD [facility] [place] [address] Scheduled Referrals Name Type Priority Associated Diagnoses Order Schedule REFERRAL TO GENERAL ANESTHESIOLOGY Outpatient Referral Routine Scoliosis Ordered: 12/16/2011 REFERRAL TO PEDIATRICS Outpatient Referral Routine Scoliosis Ordered: 12/16/2011 REFERRAL TO PAIN CLINIC Outpatient Referral Routine Scoliosis Ordered: 12/16/2011 documented as of this encounter Visit Diagnoses Diagnosis Scoliosis- Primary Scoliosis (and kyphoscoliosis), idiopathic documented in this encounter Care Teams Vice President Sales And Marketing Relationship Specialty Start Date End Date Naina Lindsey MD [address] [place] [address] PCP - General 03/19/10 08/25/16 documented as of this encounter
--- OUTSIDE RECORDS SUMMARY | 2024-01-05 18:29 | XMS_ITS | Encounter Summary ---
Author [place] [address] Care Team Providers Care Lunchroom Mother Name Role Phone Naina Lindsey MD Primary Care Provider [phone] Encounter Details Date Type Department Care Team (Latest Contact Info) Description 03/29/2014 4:15 PM EST Procedure [place] [phone] Donnell Dotson MD [facility] [place] [address] Traumatic brain injury, subsequent encounter; Abnormal involuntary [...] would be in order. Donnell Dotson MD Optical Design Engineer of Anesthesiology [facility] documented in this encounter Plan of Treatment Upcoming Encounters Date Type Department Care Team (Late st Contact Info) Description 06/02/2024 12:30 PM EST Office [place] [address] Hollie Ambriz MD [facility] DR INFECTIOUS [place] [address] documented as of this encounter Procedures Procedure Name Priority Date/Time Associated Diagnosis Comments INTRATHECAL PUMP REPROGRAMMING Routine 03/30/2014 7:13 AM EST Abnormal involuntary movements(781.0) documented in this encounter Results * INTRATHECAL PUMP REPROGRAMMING (03/30/2014 7:13 AM EST) Narrative Donnell Dotson MD - 03/30/2014 7:13 AM EST Donnell Dotsno MD ? 03/30/2014 ??7:13 AM Progress Note [...] would be in order. Donnell Dotson MD Optical Design Engineer of Anesthesiology [facility] Donnell Dotson MD PROCEDURE/MINOR SURG ICAL ORDERABLES documented in this encounter Visit Diagnoses Diagnosis Traumatic brain injury, subsequent encounter Abnormal involuntary movements(781.0) Abnormal involuntary movements documented in this encounter Care Teams Lunchroom Mother Relationship Specialty Start Date End Date Naina Lindsey MD [address] [place] [address] PCP - General 03/19/10 08/25/16 documented as of this encounter
--- OUTSIDE RECORDS SUMMARY | 2024-01-05 18:29 | XMS_ITS | Encounter Summary ---
Author Organization [facility] [place] [address] Care Team Providers Care Rehabilitation Manager Name Role Phone Lorna Bal APRN Primary Care Provider [phone] Encounter Details Date Type Department Care Team (Late st Contact Info) Description 12/21/2013 Interpretation [place] [phone] Chuckie Mayfield MD [facility] [place] [address] Social History Tobacco Use Types Packs/Day Years [...] Office [place] [address] Hollie Ambriz MD [facility] [place] [address] documented as of this encounter Procedures Procedure Name Priority Date/Time Associated Diagnosis Comments FILM LIBRARY STORAGE ONLY DX UPPER EXTREMITY Routine 12/21/2013 1:30 PM EDT documented in this encounter Results * Film Library- Storage Only DX Upper Extremity (12/21/2013 1:30 PM EDT) 08/10/2023 3:14 PM EDT Narrative [facility] - 08/10/2023 3:14 PM EDT This exam is auto-finalizing. It's purpose is for storage only. Chuckie Mayfield MD IMG FILM LIBRARY ORD ERABLES [place], [place] documented in this encounter Visit Diagnoses [...] documented as of this encounter Care Teams Rehabilitation Manager Relationship Specialty Start Date End Date Lorna Bal APRN [address] [place] [address] PCP - General Family Medicine 05/27/18 documented as of this encounter
--- OUTSIDE RECORDS SUMMARY | 2024-01-05 18:30 | XMS_ITS | Encounter Summary ---
Author Organization [facility] Benjamin [place] [address] Care Team Providers Care Rate Analyst Name Role Phone Naina Lindsey MD Primary Care Provider [phone] Reason for Visit * Reason Onset Date Comments Other 11/11/2010 WANTED NOTES VAMSI M SURG Encounter Details Date Type Department Care Team (Late st Contact Info) Description 11/11/2010 Telephone [place] [phone] Yas Ramirez MD [facility] [place] [address] Other (WANTED NOTES FROM SURG) Social History [...] PM EST Office Visit [place] [address] Hollie Ambriz MD [facility] [place] [address] documented as of this encounter Visit Diagnoses Not on filedocumented in this encounter Care Teams Rate Analyst Relationship Specialty Start Date End Date Naina Lindsey MD [address] [place] [address] [place] [address] PCP - General 03/19/10 08/25/16 documented as of this encounter
--- OUTSIDE RECORDS SUMMARY | 2024-01-05 18:30 | XMS_ITS | Encounter Summary ---
Author Organization [facility] [place] [address] Care Team Providers Care Hot Plate Plywood Press Operator Name Role Phone Naina Lindsey MD Primary Care Provider [phone] Encounter Details Date Type Department Care Team (Late st Contact Info) Description 07/11/2010 9:00 AM EDT Follow[place] [phone] Andrade Grodon MD [facility] [place] [address] Discharge Disposition: Home Social History Tobacco Use [...] PM EST Office [place] [address] Hollie Ambriz MD [facility] [place] [address] documented as of this encounter Visit Diagnoses Not on filedocumented in this encounter Care Teams Hot Plate Plywood Press Operator Relationship Specialty Start Date End Date Naina Lindsey MD [address] [place] [address] PCP - General 03/19/10 08/25/16 documented as of this encounter
--- OUTSIDE RECORDS SUMMARY | 2024-01-05 18:30 | XMS_ITS | Encounter Summary ---
Author Organization [facility] Address [facility] [place] [address] Care Team Providers Care Tracer Bullet Charging Machine Operator Name Role Phone Naina Lindsey MD Primary Care Provider [phone] Reason for Visit * Reason Comments Foot Swelling Encounter Details Date Type Department Care Team (Late st Contact Info) Description 11/04/2010 3:05 PM EDT [place] [address] Barrera Oliver MD [facility] [place] [address] Acquired dysplasia of hip, bilateral; Edema leg; [...] will be constituted in a cast and simulation technician with whom I spoke did not [...] PM EST Office [place] [address] Hollie Ambriz MD [facility] [place] [address] documented as of this encounter Results * Duplex for DVT, Leg, Unilat (11/04/2010 3:55 PM EDT) VB Text Report Department: Vascular Surgery Lab Patient: [id number] (TANA SHELTON) CPT Code: 36411 ICD-9: 729.81 Referring Physician: BARRERA OLIVER Indication: [...] consciousness documented in this encounter Care Teams Tracer Bullet Charging Machine Operator Relationship Specialty Start Date End Date Naina Lindsey MD [address] [place] [address] PCP - General 03/19/10 08/25/16 documented as of this encounter
--- OUTSIDE RECORDS SUMMARY | 2024-01-05 18:30 | XMS_ITS | Encounter Summary ---
Author Organization [facility] [place] [address] Care Team Providers Care Vinyl Welder And Fabricator Name Role Phone Naina Lindsey MD Primary Care Provider [phone] Encounter Details Date Type Department Care Team (Late st Contact Info) Description 08/19/2010 Orders [place] [address] Lucho Fields MD [facility] DR [place] [address] Social History Tobacco Use Types Packs/Day Years [...] PM EST Office [place] [address] Hollie Ambriz MD [facility] [place] [address] documented as of this encounter Visit Diagnoses Not on filedocumented in this encounter Care Teams Vinyl Welder And Fabricator Relationship Specialty Start Date End Date Naina [place] [address] PCP - General 03/19/10 08/25/16 documented as of this encounter
--- OUTSIDE RECORDS SUMMARY | 2024-01-05 18:30 | XMS_ITS | Encounter Summary ---
Author Organization [facility] Address [facility] [place] [address] Care Team Providers Care Key Maker Name Role Phone Naina Lindsey MD Primary Care Provider [phone] Encounter Details Date Type Department Care Team (Latest Contact Info) Description 09/24/2010 1:20 PM EDT - 09/24/2010 11:59 PM EDT Hospital Encounter XRay at [address] [place] [address] Muscle spasticity Social History Tobacco Use Types [...] PM EST Office [place] [address] Hollie Ambriz MD [facility] DR INFECTI[place] [address] documented as of this encounter Procedures Procedure [...] muscle documented in this encounter Care Teams Key Maker Relationship Specialty Start Date End Date Naina Lindsey MD [address] [address] PCP - General 03/19/10 08/25/16 documented as of this encounter
--- OUTSIDE RECORDS SUMMARY | 2024-01-05 18:30 | XMS_ITS | Encounter Summary ---
Author Organization [facility] Address [address] [place] [address] Care Team Providers Care Act English Tutor Name Role Phone César Robert MD, Naina Primary Care Provider [phone] Encounter Details Date Type Department Care Team (Late st Contact Info) Description 12/04/[address] [facility] Pathology & Laboratory Medicine - [address] [id number] Outr Resulting Lab, Provider Social History Tobacco [...] >15.00 See Note mg/L 12/04/2023 18:03 EDT [facility] Comment: Suggest ordering C-Reactive Protein Reference Range: ??Low Risk: ? <1.0 mg/L ??Average Risk: ?? 1.0 - 3.0 mg/L ??High Risk: ?>3.0 mg/L ??Indeterminate*: >10.0 mg/L ??*May be an indication of another source of inflammation or infection Blood VENOUS BLOOD / Unknown 12/04/2023 10:00 EDT 12/04/2023 17:37 EDT Provider Outr Resulting Lab CHEMISTRY & BLOOD GAS ORDERABLES Performing Organization Address City/State/[facility] Co de Phone Number [facility] [address] [place] [address] documented in this encounter Visit Diagnoses Not on filedocumented in this encounter Care Teams Act English Tutor Relationship Specialty Start Date End Date Naina Lindsey MD [address] [place] [address] PCP - General 02/13/15 documented as of this encounter
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
--- OUTSIDE RECORDS SUMMARY | 2024-01-05 18:30 | XMS_ITS | Encounter Summary ---
Author Organization [facility] Address [facility] [place] [address] Care Team Providers Care Canary Breeder Name Role Phone Naina Lindsey MD Primary Care Provider [phone] Encounter Details Date Type Department Care Team (Late st Contact Info) Description 08/13/2010 [place] [address] Yas Ramirez MD [facility] [address] [place] [address] Social History Tobacco Use Types Packs/Day Years [...] Office [place] [phone] Hollie Ambriz MD [facility] [place] [address] documented as of this encounter Visit Diagnoses Not on filedocumented in this encounter Care Teams Canary Breeder Relationship Specialty Start Date End Date Naina Lindsey MD [address] [place] [address] PCP - General 03/19/10 08/25/16 documented as of this encounter
--- OUTSIDE RECORDS SUMMARY | 2024-01-05 18:30 | XMS_ITS | Encounter Summary ---
[place] [address] Care Team Providers Care Conveyor Mechanic Name Role Phone Naina Lindsey MD Primary Care Provider [phone] Encounter Details Date Type Department Care Team (Late st Contact Info) Description 02/03/2011 Orders [place] [address] Yas Ramirez MD [facility] [place] [address] Acquired dysplasia of hip, bilateral; Scoliosis; Traumatic [...] PM EST Office [place] [address] Hollie Ambriz MD [facility] [place] [address] documented as of this encounter Visit Diagnoses Diagnosis Acquired dysplasia of hip, bilateral Other acquired deformities of hip Scoliosis Scoliosis (and kyphoscoliosis), idiopathic 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
--- OUTSIDE RECORDS SUMMARY | 2024-01-05 18:30 | XMS_ITS | Encounter Summary ---
Author Organization [facility] Address [address] [place] [address] Care Team Providers Care Cupola Hoist Operator Name Role Phone César Robert MD, Naina Primary Care Provider [phone] Encounter Details Date Type Department Care Team (Late st Contact Info) Description 07/01/2023 Lab Requisition [facility] Pathology & Laboratory Medicine - [address] [address] Outr Resulting Lab, Provider Social History Tobacco [...] 85 - 499 mg/dL 07/02/2023 11:39 EST [facility] Blood VENOUS BLOOD / Unknown 07/01/2023 10:52 EST 07/01/2023 21:19 EST Provider Outr Resulting Lab CHEMISTRY & BLOOD GAS ORDERABLES Performing Organization Address City/[facility] Co de Phone Number [facility] [address] [place] [address] * (ABNORMAL) IGG (07/01/2023 10:52 EST) IgG 1,631(H) 610 - 1,616 mg/dL 07/02/2023 11:39 EST [facility] Blood VENOUS BLOOD / Unknown 07/01/2023 10:52 EST 07/01/2023 21:19 EST Provider Outr Resulting Lab CHEMISTRY & BLOOD GAS ORDERABLES Performing Organization Address City/[facility] Co de Phone Number [facility] [address] [place], [place] [phone] documented in this encounter Visit Diagnoses Not on filedocumented in this encounter Care Teams Cupola Hoist Operator Relationship Specialty Start Date End Date Naina Lindsey MD [address] [place] [address] PCP - General 02/13/15 documented as of this encounter
--- OUTSIDE RECORDS SUMMARY | 2024-01-05 18:30 | XMS_ITS | Encounter Summary ---
Author Organization [facility] [place] [address] Care Team Providers Care Advisory Software Engineer Name Role Phone Naina Lindsey MD Primary Care Provider [phone] Reason for Referral * Consultation (Routine) - Complete - Patient Will Schedule External Appt Specialty Diagnoses / Procedures Referred By Contac t Referred To Contact Orthotics Diagnoses Cerebral palsy Yas Ramirez MD [facility] [place] [address] Referral ID Status Reason Start Date Expiration Date Visits Requested Visits Authorized [id number] Complete - Patient Will Schedule External Appt Assume Subset of Care 09/30/2010 03/29/2011 1 1 * Consultation (Routine) - Complete - Patient Will Schedule External Appt Specialty Diagnoses / Procedures Referred By Contac t Referred To Contact Orthotics Diagnoses Cerebral palsy Yas Ramirez MD [facility] [place] [address] Referral ID Status Reason Start Date Expiration Date Visits Requested Visits Authorized [id number] Complete - Patient Will Schedule External Appt Assume Subset of Care 09/30/2010 03/29/2011 1 1 Reason for Visit * Reason Comments Developmental Delay serial casting Encounter Details Date Type Department Care Team (Late st Contact Info) Description 09/30/2010 9:00 AM EDT Follow-Up Orthopaedics at [facility] [place] [address] Yas Ramirez MD [facility] [place] [address] Cerebral palsy (Primary Dx) Discharge Disposition: Home [...] encounter Miscellaneous Notes * Miscellaneous - Delbert Care Information Associate - 10/31/2010 9:10 AM EDT documented in this encounter Plan of Treatment Upcoming Encounters Date Type Department Care Team (Late st Contact Info) Description 06/02/2024 12:30 PM EST Office [place] [address] Hollie Ambriz MD [facility] DR INFECTIOUS DISEASE [place] [phone] Scheduled Referrals Name Type Priority Associated Diagnoses Orde r Schedule REFERRAL FOR ORTHOTICS Outpatient Referral Routine Cerebral palsy Ordered: 09/30/2010 REFERRAL FOR ORTHOTICS Outpatient Referral Routine Cerebral palsy Ordered: 09/30/2010 documented as of this encounter Visit Diagnoses Diagnosis Cerebral palsy- Primary Infantile cerebral palsy, unspecified documented in this encounter Care Teams Advisory Software Engineer Relationship Specialty Start Date End Date Naina Lindsey MD [address] [place] [address] PCP - General 03/19/10 08/25/16 documented as of this encounter
--- OUTSIDE RECORDS SUMMARY | 2024-01-05 18:30 | XMS_ITS | Encounter Summary ---
Author Organization [facility] Address [facility] [place] [address] Care Team Providers Care Craniologist Name Role Phone Naina Lindsey MD Primary Care Provider [phone] Encounter Details Date Type Department Care Team (Late st Contact Info) Description 06/12/2010 9:00 AM EST Procedure visit [address] [address] Social History Tobacco Use Types Packs/Day Years [...] Office [place] [address] Hollie Ambriz MD [facility] [place] [address] documented as of this encounter Visit Diagnoses Not on filedocumented in this encounter Care Teams Craniologist Relationship Specialty Start Date End Date Naina Lindsey MD [address] [place] [address] [place], [place] [id number] PCP - General 03/19/10 08/25/16 documented as of this encounter
--- OUTSIDE RECORDS SUMMARY | 2024-01-05 18:30 | XMS_ITS | Encounter Summary ---
Author Organization [facility] Address [facility] [place] [address] Care Team Providers Care Forge Press Operator Name Role Phone Naina Lindsey MD Primary Care Provider [phone] Encounter Details Date Type Department Care Team (Late st Contact Info) Description 08/15/2010 7:43 AM EDT Anesthesia Event [place] [address] Erika Curtis MD [facility] [place] [address] Anesthesia Record Procedure Summary Procedure Name Responsible [...] patient, father and mother. Plan discussed with RATING EXAMINER. documented in this encounter Miscellaneous Notes * [...] PM EST Office [place] [address] Hollie Ambriz MD [facility] [place] [address] documented as of this encounter Visit Diagnoses Not on filedocumented in this encounter Care Teams Forge Press Operator Relationship Specialty Start Date End Date Naina Lindsey MD [address] [place] [address] [place] [address] PCP - General 03/19/10 08/25/16 documented as of this encounter
--- OUTSIDE RECORDS SUMMARY | 2024-01-05 18:30 | XMS_ITS | Encounter Summary ---
Author Organization [place] [address] Care Team Providers Care Belt Builder Name Role Phone Naina Lindsey MD Primary Care Provider [phone] Reason for Referral * Occupational Therapy (Routine) - Complete - Patient Will Schedule External Appt Specialty Diagnoses / Procedures Referred By Contac t Referred To Contact Occupational Therapy Diagnoses Acquired dysplasia of hip Scoliosis Traumatic brain injury Yas Ramirez MD [facility] [place] [address] Referral ID Status Reason Start Date Expiration Date Visits Requested Visits Authorized [id number] Complete - Patient Will Schedule External Appt Evaluate and Treat 01/02/2011 07/01/2011 1 1 * Physical Therapy (Routine) - Complete - Patient Will Schedule External Appt Specialty Diagnoses / Procedures Referred By Contac t Referred To Contact Physical Therapy Diagnoses Acquired dysplasia of hip Scoliosis Traumatic brain injury Yas Ramirez MD [facility] [place] [address] Referral ID Status Reason Start Date Expiration Date Visits Requested Visits Authorized [id number] Complete - Patient Will Schedule External Appt Evaluate and Treat 01/02/2011 07/01/2011 1 1 Encounter Details Date Type Department Care Team (Late st Contact Info) Description 01/02/2011 Orders Only Orthopaedics at [place] [phone] Yas Ramirez MD [facility] [address] [place] [address] Acquired dysplasia of hip, bilateral; Scoliosis; Traumatic [...] PM EST Office Visit Infectious Disease at [address] Hollie Ambriz MD [facility] [place] [address] Scheduled Referrals Name Type Priority Associated Diagnoses [...] consciousness documented in this encounter Care Teams Belt Builder Relationship Specialty Start Date End Date Naina Lindsey MD [address] [place] [address] [place] [address] PCP - General 03/19/10 08/25/16 documented as of this encounter
--- OUTSIDE RECORDS SUMMARY | 2024-01-05 18:30 | XMS_ITS | Encounter Summary ---
Author Organization [facility] Address [facility] [place] [address] Care Team Providers Care Cut Off Saw Operator Name Role Phone Naina Lindsey MD Primary Care Provider [phone] Reason for Referral * Physical Therapy (Routine) - Complete - Patient Will Schedule External Appt Specialty Diagnoses / Procedures Referred By Karlo t Referred To Contact Physical Therapy Diagnoses Developmental delay Yas Ramirez MD [facility] [place] [address] Referral ID Status Reason Start Date Expiration Date Visits Requested Visits Authorized [id number] Complete - Patient Will Schedule External Appt Evaluate and Treat 09/24/2010 03/23/2011 1 1 Reason for Visit * Reason Comments Follow Up Surgery spica cast Encounter Details Date Type Department Care Team (Late st Contact Info) Description 09/24/2010 2:20 PM EDT [place] [phone] Yas Ramirez MD [facility] [place] [address] Developmental delay (Primary Dx); Traumatic brain injury [...] PM EST Office [place] [address] Hollie Ambriz MD [facility] [place] [address] Scheduled Referrals Name Type Priority Associated Diagnoses [...] hip documented in this encounter Care Teams Cut Off Saw Operator Relationship Specialty Start Date End Date Naina Lindsey MD [address] [place] [address] [place] [address] PCP - General 03/19/10 08/25/16 documented as of this encounter
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
--- OUTSIDE RECORDS SUMMARY | 2024-01-05 18:30 | XMS_ITS | Encounter Summary ---
Author Organization [facility] [place] [address] Care Team Providers Care Airborne And Air Delivery Specialist Name Role Phone Naina Lindsey MD Primary Care Provider [phone] Encounter Details Date Type Department Care Team (Late st Contact Info) Description 11/07/2010 Orders [place] [phone] Bigg Dunbar MD [facility] [place] [address] Spasticity (Primary Dx) Social History Tobacco Use [...] PM EST Office Visit [place] [phone] Hollie Ambriz MD [facility] [place] [address] documented as of this encounter Visit Diagnoses Diagnosis Spasticity- Primary Abnormal involuntary movements documented in this encounter Care Teams Airborne And Air Delivery Specialist Relationship Specialty Start Date End Date Naina Lnidsey MD [address] [place] [address] PCP - General 03/19/10 08/25/16 documented as of this encounter
--- OUTSIDE RECORDS SUMMARY | 2024-01-05 18:30 | XMS_ITS | Encounter Summary ---
Author Organization [facility] [place] [address] Care Team Providers Care Break Up Worker Name Role Phone Naina Lindsey MD Primary Care Provider [phone] Encounter Details Date Type Department Care Team (Late st Contact Info) Description 08/13/2010 Orders [place] [address] Yas Ramirez MD [facility] [place] [address] DDH (developmental dysplasia of the hip) (Primary [...] PM EST Office Visit [place] [address] Hollie Ambriz MD [facility] [place] [address] documented as of this encounter Visit Diagnoses Diagnosis DDH (developmental dysplasia of the hip)- Primary Other congenital deformity of hip (joint) documented in this encounter Care Teams Break Up Worker Relationship Specialty Start Date End Date Naina Lindsey MD [address] [place] [address] PCP - General 03/19/10 08/25/16 documented as of this encounter
--- OUTSIDE RECORDS SUMMARY | 2024-01-05 18:30 | XMS_ITS | Encounter Summary ---
Author Organization [facility] [place] [address] Care Team Providers Care Field Artillery Officer Name Role Phone Naina Lindsey MD Primary Care Provider [phone] Encounter Details Date Type Department Care Team (Late st Contact Info) Description 11/04/2010 4:00 PM EDT Office Visit [place] [phone] Gloria López, RVT Acquired dysplasia of hip, [...] Office [place] [phone] Hollie Ambriz MD [facility] [place] [address] documented as of this encounter Procedures Procedure Name Priority Date/Time Associated Diagnosis Comments DUPLEX FOR DVT, LEG, UNILAT Routine 11/04/2010 3:55 PM EDT Acquired dysplasia of hip, bilateral Edema leg documented in this encounter Results * Duplex for DVT, Leg, Unilat (11/04/2010 3:55 PM EDT) VB Text Report Department: Vascular Surgery Lab Patient: [id number] (TANA SHELTON) CPT Code: 23021 ICD-9: 729.81 Referring Physician: BARRERA OLIVER Indication: [...] Oliver MD VASCULAR ORDERABLES Performing Organization Address City/State/[facility] Co de Phone Number [employer]ASCUBASE documented in this encounter Visit Diagnoses Diagnosis Acquired dysplasia of hip, bilateral Other acquired deformities of hip Edema leg Edema documented in this encounter Care Teams Field Artillery Officer Relationship Specialty Start Date End Date Naina Lindsey MD [address] [place] [address] [place] [address] PCP - General 03/19/10 08/25/16 documented as of this encounter
--- OUTSIDE RECORDS SUMMARY | 2024-01-05 18:30 | XMS_ITS | Encounter Summary ---
Author Organization [facility] [place] [address] Care Team Providers Care Concrete Pump Operator Helper Name Role Phone Naina Lindsey MD Primary Care Provider [phone] Encounter Details Date Type Department Care Team (Late st Contact Info) Description 09/27/2010 Orders [place] [phone] Yas Ramirez MD [facility] [place] [address] Muscle spasticity; Acquired dysplasia of hip, bilateral; [...] PM EST Office Visit [place] [address] Hollie Ambriz MD [facility] [place] [address] documented as of this encounter Visit Diagnoses Diagnosis Muscle spasticity Spasm of muscle Acquired dysplasia of hip, bilateral Other acquired deformities of hip 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
--- OUTSIDE RECORDS SUMMARY | 2024-01-05 18:30 | XMS_ITS | Clinical Summary ---
Author Organization [facility] Address [address] [place] [address] Care Team Providers Care Jde Developer Name Role Phone César Robert MD, Naina Primary Care Provider [phone] Medications Medication Sig Dispensed Refills Start Date [...] appointments, call Tana's dual living providers Kavita: [phone]. No additional problems on file Encounters Date Type Department Care Team Description 12/04/2023 Lab Requisition [facility] Pathology & Laboratory Medicine - [facility] [address] [place] [address] Outr Resulting Lab, Provider from Last 3 [...] >15.00 See Note mg/L 12/04/2023 18:03 EDT [facility] Comment: Suggest ordering C-Reactive Protein Reference Range: ??Low Risk: ? <1.0 mg/L ??Average Risk: ?? 1.0 - 3.0 mg/L ??High Risk: ?>3.0 mg/L ??Indeterminate*: >10.0 mg/L ??*May be an indication of another source of inflammation or infection Blood VENOUS BLOOD / Unknown 12/04/2023 10:00 EDT 12/04/2023 17:37 EDT Provider Outr Resulting Lab CHEMISTRY & BLOOD GAS ORDERABLES [facility] [address] [place] [address] from Last 3 Months Care Teams Jde Developer Relationship Specialty Start Date End Date Naina Lindsey MD [address] [place] [address] PCP - General 02/13/15
--- OUTSIDE RECORDS SUMMARY | 2024-01-05 18:30 | XMS_ITS | Encounter Summary ---
[place] [address] Care Team Providers Care Medical Case Worker Name Role Phone Naina Lindsey MD Primary Care Provider [phone] Reason for Visit * Reason Onset Date Comments Other 03/14/2011 Encounter Details Date Type Department Care Team (Late st Contact Info) Description 03/14/2011 [place] [phone] Mony Fierro RN Other Social History Tobacco [...] this also with Bart Denis PT from [place] [facility] who has been unable to find a creative way to avoid this with her seating. Discussed with Dr. Ramirez who will evaluate at her appointment on 03/31. documented in this encounter Plan of Treatment Upcoming Encounters Date Type Department Care Team (Late st Contact Info) Description 06/02/2024 12:30 PM EST Office [place] [address] Hollie Ambriz MD [facility] [place] [address] documented as of this encounter Visit Diagnoses Not on filedocumented in this encounter Care Teams Medical Case Worker Relationship Specialty Start Date End Date Naina Lindsey MD [address] [place] [address] [place] [address] PCP - General 03/19/10 08/25/16 documented as of this encounter
--- OUTSIDE RECORDS SUMMARY | 2024-01-05 18:30 | XMS_ITS | Encounter Summary ---
Author Organization [facility] Address [address] [place] [address] Care Team Providers Care Wildlife Rehabilitator Name Role Phone César Robert MD, Naina Primary Care Provider [phone] Encounter Details Date Type Department Care Team (Late st Contact Info) Description 07/01/[address] [facility] Pathology & Laboratory Medicine - [address] [address] Outr Resulting Lab, Provider Social History Tobacco [...] IgA <4.0 <20.0 CU 07/02/2023 10:22 EST [facility] Comment: Negative: <20.0 CU Weak Positive: 20.0-30.0 CU Positive: >30.0 CU Results were obtained with the HumounoA Flash h-tTG IgA chemiluminescent immunoassay. Values obtained with different manufacturers' assay methods may not be used interchangeably. Blood VENOUS BLOOD / Unknown 07/01/2023 10:52 EST 07/01/2023 21:12 EST Provider Outr Resulting Lab IMMUNOLOGY A ND SEROLOGY ORDERABLES Performing Organization Address City/State/[facility] Co de Phone Number [facility] [address] [place], [place] [phone] documented in this encounter Visit Diagnoses Not on filedocumented in this encounter Care Teams Wildlife Rehabilitator Relationship Specialty Start Date End Date Naina Lindsey MD [address] [place] [address] PCP - General 02/13/15 documented as of this encounter
--- OUTSIDE RECORDS SUMMARY | 2024-01-05 18:30 | XMS_ITS | Encounter Summary ---
Author Organization [facility] [place] [address] Care Team Providers Care Supervisor Machine Workers Name Role Phone Naina Lindsey MD Primary Care Provider [phone] Reason for Visit * Reason Comments Spasms Encounter Details Date Type Department Care Team (Late st Contact Info) Description 11/20/2010 12:45 PM EDT Follow-[place] [phone] Christiano Floyd MD [facility] [place] [address] Spastic quadriplegia (Primary Dx) Discharge Disposition: Home [...] 11/20/2010 1:2 7 PM EDT Growth Chart: [facility] (Girls, 2- 20 Years) documented in this encounter Progress Notes * Gaby Silva - 11/20/2010 3:00 PM EDT [facility] Refill of Intrathecal Pump with Reprogramming Procedure Note Tana Robles Cavazos [id number] Date of Refill: 11/20/10 Primary Writing Tutor: Dr. Silva Coal Chute Worker: Dr. Floyd Reason for Reprogramming: Refill Diagnosis: [...] instilled into the pump according to the post tensioning ironworker's directions without difficulty. There was no evidence [...] PM EST Office Visit [place] [address] Hollie Ambriz MD [facility] [place] [address] documented as of this encounter Visit Diagnoses Diagnosis Spastic quadriplegia- Primary Quadriplegia, unspecified documented in this encounter Care Teams Supervisor Machine Workers Relationship Specialty Start Date End Date Naina Lindsey MD [address] [place] [address] PCP - General 03/19/10 08/25/16 documented as of this encounter
--- OUTSIDE RECORDS SUMMARY | 2024-01-05 18:30 | XMS_ITS | Encounter Summary ---
[place] [address] Care Team Providers Care Gang Knife Fish Chopper Name Role Phone Naina Lindsey MD Primary Care Provider [phone] Encounter Details Date Type Department Care Team (Late st Contact Info) Description 12/17/2010 Telephone [place] [address] Mony Fierro, RN Social History [...] EST Office Visit [place] [address] Hollie Ambriz MD [facility] [place] [address] documented as of this encounter Visit Diagnoses Not on filedocumented in this encounter Care Teams Gang Knife Fish Chopper Relationship Specialty Start Date End Date Naina Lindsey MD [address] [place] [address] PCP - General 03/19/10 08/25/16 documented as of this encounter
--- OUTSIDE RECORDS SUMMARY | 2024-01-05 18:30 | XMS_ITS | Encounter Summary ---
Author Organization [facility] [place] [address] Care Team Providers Care Refrigeration Manager Name Role Phone Naina Lindsey MD Primary Care Provider [phone] Encounter Details Date Type Department Care Team (Late st Contact Info) Description 06/12/2010 9:30 AM EST [place] [address] Yas Ramirez MD [facility] [place] [address] Discharge Disposition: Home Social History Tobacco Use [...] PM EST Office [place] [address] Hollie Ambriz MD [facility] [place] [address] documented as of this encounter Visit Diagnoses Not on filedocumented in this encounter Care Teams Refrigeration Manager Relationship Specialty Start Date End Date Naina Lindsey MD [address] [place] [address] PCP - General 03/19/10 08/25/16 documented as of this encounter
--- OUTSIDE RECORDS SUMMARY | 2024-01-05 18:30 | XMS_ITS | Referral Summary ---
Author Organization [facility] Address [address] [place] [address] Care Team Providers Care Toll Line Repairer Name Role Phone César Robert MD, Naina Primary Care Provider [phone] Encounters Date Type Department Care Team Description 12/04/2023 Lab Requisition [facility] Pathology & Laboratory Medicine - [facility] [address] [place] [address] Outr Resulting Lab, Provider from Last 3 [...] appointments, call Yahaira dual living providers Kavita: [phone]. No additional problems on file Social History [...] >15.00 See Note mg/L 12/04/2023 18:03 EDT [facility] Comment: Suggest ordering C-Reactive Protein Reference Range: ??Low Risk: ? <1.0 mg/L ??Average Risk: ?? 1.0 - 3.0 mg/L ??High Risk: ?>3.0 mg/L ??Indeterminate*: >10.0 mg/L ??*May be an indication of another source of inflammation or infection Blood VENOUS BLOOD / Unknown 12/04/2023 10:00 EDT 12/04/2023 17:37 EDT Provider Outr Resulting Lab CHEMISTRY & BLOOD GAS ORDERABLES Performing Organization Address [facility]/State/[facility] Co de Phone Number [facility] [address] [place] [address] from Last 3 Months Care Teams Toll Line Repairer Relationship Specialty Start Date End Date Naina Lindsey MD [address] [place] [address] PCP - General 02/13/15
--- OUTSIDE RECORDS SUMMARY | 2024-01-05 18:30 | XMS_ITS | Encounter Summary ---
Author Organization [facility] Address [address] [place] [address] Care Team Providers Care Brake Liner Name Role Phone César Robert MD, Naina Primary Care Provider [phone] Encounter Details Date Type Department Care Team (Late st Contact Info) Description 04/24/2023 Lab Requisition [facility] Pathology & Laboratory Medicine - [address] [id number] Outr Resulting Lab, Provider Social History Tobacco [...] Surface Ag Negative Negative 04/24/2023 22:33 EST [facility] Hep C Antibody Negative Negative 04/24/2023 22:33 EST [facility] Hepatitis A Antibody, IgM Negative Negative 04/24/2023 22:33 EST [facility] Comment:The results of this assay can be falsely lowered due to the consumption of Biotin. Hepatitis B Core Ab, Total Negative Negative 04/24/2023 22:33 EST [facility] Blood VENOUS BLOOD / Unknown 04/24/2023 10:00 EST 04/24/2023 21:06 EST Provider Outr Resulting Lab CHEMISTRY & BLOOD GAS ORDERABLES [facility] [address] [place] [address] documented in this encounter Visit Diagnoses Not on filedocumented in this encounter Care Teams Brake Liner Relationship Specialty Start Date End Date Naina Lindsey MD [address] [place] [address] PCP - General 02/13/15 documented as of this encounter
--- OUTSIDE RECORDS SUMMARY | 2024-01-05 18:30 | XMS_ITS | Encounter Summary ---
Author Organization [facility] [place] [address] Care Team Providers Care Kayaking Instructor Name Role Phone Naina Lindsey MD Primary Care Provider [phone] Encounter Details Date Type Department Care Team (Late st Contact Info) Description 11/18/2010 Abstract [place] [address] Jessica López, RN Social History Tobacco Use [...] PM EST Office Visit [place] [address] Hollie Ambriz MD [facility] [place] [address] documented as of this encounter Visit Diagnoses Not on filedocumented in this encounter Care Teams Kayaking Instructor Relationship Specialty Start Date End Date Naina Lindsey MD [address] [place] [address] [place] [address] PCP - General 03/19/10 08/25/16 documented as of this encounter
--- OUTSIDE RECORDS SUMMARY | 2024-01-05 18:30 | XMS_ITS | Encounter Summary ---
[place] [address] Care Team Providers Care Rodding Anode Worker Name Role Phone Naina Lindsey MD Primary Care Provider [phone] Reason for Visit * Reason Comments Cerebral Palsy Encounter Details Date Type Department Care Team (Late st Contact Info) Description 09/05/2010 1:00 PM EDT Office [place] [address] CLINIC, DR VALADE[facility] Muscle spasticity (Primary Dx) [...] [place] [address] Hollie Ambriz MD [facility] [place] [address] documented as of this encounter Visit Diagnoses Diagnosis Muscle spasticity- Primary Spasm of muscle documented in this encounter Care Teams Rodding Anode Worker Relationship Specialty Start Date End Date Naina Lindsey MD [address] [place] [address] PCP - General 03/19/10 08/25/16 documented as of this encounter
--- OUTSIDE RECORDS SUMMARY | 2024-01-05 18:31 | XMS_ITS | Encounter Summary ---
Author Organization [facility] Address [address] [place] [address] Care Team Providers Care Machinery Dismantler Name Role Phone César Robert MD, Naina Primary Care Provider [phone] Reason for Visit * Reason Onset Date Comments Appointment Related 05/14/2015 Encounter Details Date Type Department Care Team (Late st Contact Info) Description 05/14/2015 Telephone [facility] Rehabilitation Therapy - [facility] [address] [place] [address] Therapy, Outpatient, Appointment Related Social [...] the original note were not included. 0 [facility]; [place] [address] May 14, 2015 Dear Javed; Per our conversation, Tana has been scheduled to be seen by the [facility] Wheelchair Assessment Team for an additional power chair evaluation. Your appointment will last for approximately 3 hours and is scheduled for: Date: Friday July 10, 2015 Time: 12:30 Place: [facility] [address] [place] [id number] The evaluation team will include the following people: [facility] Rehabilitation Physical Therapist: Candelaria Jaquez PT Medical Supplier Administrative Assistant: Ramin from [facility] Please call to pre-register with [facility] prior to your appointment at [phone]. During the evaluation, we would like to [...] unable to make your appointment please call [phone]. *48-hour notice is required for cancellation.* We look forward to seeing you. Mile Ronquillo [facility] Rehabilitation Therapy Center [facility] documented in this encounter Plan of Treatment Not on file documented as of this encounter Visit Diagnoses Not on filedocumented in this encounter Care Teams Machinery Dismantler Relationship Specialty Start Date End Date Naina Lindsey MD [address] [place] [address] PCP - General 02/13/15 documented as of this encounter
--- OUTSIDE RECORDS SUMMARY | 2024-01-05 18:31 | XMS_ITS | Encounter Summary ---
Author Organization [facility] Address [address] [place] [address] Care Team Providers Care Tooth Clerk Name Role Phone César Robert MD, Naina Primary Care Provider [phone] Reason for Visit * Reason Onset Date Comments Appointment Related 07/20/2015 Encounter Details Date Type Department Care Team (Late st Contact Info) Description 07/20/2015 Telephone [facility] Rehabilitation Therapy - [address] [address] Therapy, Outpatient, Appointment Related Social History Tobacco [...] on filedocumented in this encounter Care Teams Tooth Clerk Relationship Specialty Start Date End Date Naina Lindsey MD [address] [place] [address] PCP - General 02/13/15 documented as of this encounter
--- OUTSIDE RECORDS SUMMARY | 2024-01-05 18:31 | XMS_ITS | Encounter Summary ---
Author Organization [facility] Address [address] [place] [address] Care Team Providers Care Germination Testing Manager Name Role Phone César Robert MD, Naina Primary Care Provider [phone] Encounter Details Date Type Department Care Team (Latest Contact Info) Description 08/24/2018 17:22 EDT - 08/24/2018 23:59 EDT Hospital Encounter [address] [address] Unknown, Provider, Discharge Disposition: Home or Self [...] on filedocumented in this encounter Care Teams Germination Testing Manager Relationship Specialty Start Date End Date Naina Lindsey MD [address] [place] [address] [place] [address] PCP - General 02/13/15 documented as of this encounter
--- OUTSIDE RECORDS SUMMARY | 2024-01-05 18:31 | XMS_ITS | Encounter Summary ---
Author Organization [facility] Address [address] [place] [address] Care Team Providers Care Paint Line Production Supervisor Name Role Phone César Robert MD, Naina Primary Care Provider [phone] Reason for Visit * Reason Onset Date Comments Other 04/03/2015 Encounter Details Date Type Department Care Team (Late st Contact Info) Description 04/03/2015 Telephone [facility] Rehabilitation Therapy - [facility] [address] [place], [place] [phone] Candelaria Jaquez, PT [address] [place] [address] Other Social History Tobacco Use Types Packs/Day Years Used Date Smoking Tobacco: Never Assessed Sex and Gender Information Value Date Recorded Sex Assigned at Not on file Gender Identity Not on file Sexual Orientation Not on file documented as of this encounter Miscellaneous Notes * Telephone Encounter - Candelaria Jqauez, PT - 04/03/2015 1654 EST Opened in error documented in this encounter Plan of Treatment Not on file documented as of this encounter Visit Diagnoses Not on filedocumented in this encounter Care Teams Paint Line Production Supervisor Relationship Specialty Start Date End Date Naina Lindsey MD [address] [place], [place] [address] PCP - General 02/13/15 documented as of this encounter
--- OUTSIDE RECORDS SUMMARY | 2024-01-05 18:31 | XMS_ITS | Encounter Summary ---
Author Organization [facility] Address [address] [place] [address] Care Team Providers Care Accounts Administrator Name Role Phone César Robert MD, Naina Primary Care Provider [phone] Reason for Visit * Reason Onset Date Comments Appointment Related 03/01/2015 Encounter Details Date Type Department Care Team (Late st Contact Info) Description 03/01/2015 Telephone [facility] Rehabilitation Therapy - [address] [address] Therapy, Outpatient, Appointment Related Social History Tobacco [...] chair. After discussing this with Phyllis Whitman CCC-OPERATIONS PROJECT MANAGER and the [employer] it was determined that we needed more info and should acquire the OPERATIONS PROJECT MANAGER notes from the patient's pathologist at her high school. Spoke with patient's student aid from [employer], Mesha Espinal. She indicates that the bracket that holds the Smart Talk device hits every door frame that they go through, and would like this remedied. Mesha states that there are no unmet OPERATIONS PROJECT MANAGER needs at this time. I indicated to Mesha that Candelaria Jaquez PT should be able to address this need at the patient's Wheelchair [facility] appointment on 04/07/15. documented in this encounter Plan of Treatment Not on file documented as of this encounter Visit Diagnoses Not on filedocumented in this encounter Care Teams Accounts Administrator Relationship Specialty Start Date End Date Naina Lindsey MD [address] [place] [address] PCP - General 02/13/15 documented as of this encounter
--- OUTSIDE RECORDS SUMMARY | 2024-01-05 18:31 | XMS_ITS | Encounter Summary ---
Author Organization [facility] Address [address] [place] [address] Care Team Providers Care Erp Analyst Name Role Phone César Robert MD, Naina Primary Care Provider [phone] Reason for Visit * Reason Onset Date Comments Appointment Related 04/04/2019 Encounter Details Date Type Department Care Team (Late st Contact Info) Description 04/04/2019 Telephone [facility] Rehabilitation Therapy - [address] [phone] Therapy, Physical Appointment Related Social History Tobacco [...] on filedocumented in this encounter Care Teams Erp Analyst Relationship Specialty Start Date End Date Naina Lindsey MD [address] [place], [place] [address] PCP - General 02/13/15 documented as of this encounter
--- OUTSIDE RECORDS SUMMARY | 2024-01-05 18:31 | XMS_ITS | Encounter Summary ---
Author Organization [facility] Address [address] [place] [address] Care Team Providers Care Construction Sales Representative Name Role Phone César Robert MD, Naina Primary Care Provider [phone] Encounter Details Date Type Department Care Team [...] Outpatient Rehab Plan of Care REHABILITATION THERAPIES [facility] REHABILITATION THERAPY - [address] [address] Physical Therapy Progress Note Date of Service: [...] verbalized understanding Team Communication: MYA Pleitez from [facility] and two of Tana's caregivers were present and participated in this entire visit. A: The custom mold was created for Tana's new custom seating system. 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 Halfway Goals: 8 weeks Will have a wheeled [...] Cc: Referring Provider: LIZETH Sandoval ATP from [facility] Rehabilitation Therapies [facility] Fax: [phone] WHEELCHAIR PRESCRIPTION 05/06/2019 Tana Cavazos 1995 [address] [place] [address] (home) [phone] (work) Insurance Policy Number 1. [place] Medicaid ACO [id number] Medical/Surgical History: Current: There is no problem [...] elbow (90 degrees)-n/a Component Wheelchair Description Justification Room Service Attendant, style and model USE EXISTING WHEELCHAIR Chair [...] on the mold. ?? Incontinent cover ?? Sapello headrest mounting plate ?? Sapello headrest mount ?? To accommodate .Tana's fixed [...] Referring Provider: Lorna Bal NP Funding at [facility] Plan ATTENDING PHYSICIAN: Your [...] on filedocumented in this encounter Care Teams Construction Sales Representative Relationship Specialty Start Date End Date Naina Lindsey MD [address] [place] [address] PCP - General 02/13/15 documented as of this encounter
--- OUTSIDE RECORDS SUMMARY | 2024-01-05 18:31 | XMS_ITS | Encounter Summary ---
Author Organization [facility] Address [address] [place] [address] Care Team Providers Care Silica Filter Operator Name Role Phone César Robert MD, Naina Primary Care Provider [phone] Reason for Visit * Reason Onset Date Comments Appointment Related 03/30/2015 Encounter Details Date Type Department Care Team (Late st Contact Info) Description 03/30/2015 Telephone [facility] Rehabilitation Therapy - [address] [phone] Therapy, Outpatient, Appointment Related Social History Tobacco [...] on filedocumented in this encounter Care Teams Silica Filter Operator Relationship Specialty Start Date End Date Naina Lindsey MD [address] [place] [address] [place] [address] PCP - General 02/13/15 documented as of this encounter
--- OUTSIDE RECORDS SUMMARY | 2024-01-05 18:31 | XMS_ITS | Encounter Summary ---
Author Organization [facility] Address [address] [place] [address] Care Team Providers Care Educational Resource Coordinator Name Role Phone César Robert MD, Naina Primary Care Provider [phone] Reason for Visit * Reason Onset Date Comments Appointment Related 03/01/2015 Encounter Details Date Type Department Care Team (Late st Contact Info) Description 03/01/2015 Telephone [facility] Rehabilitation Therapy - [address] [phone] Therapy, Outpatient, Appointment Related Social History Tobacco [...] by Candelaria Jaquez PT and Phyllis Whitman CCC-DIRECTOR OF MECHANICAL ENGINEERING : Phyllis indicates she may need to do a Speech Language Evaluation for this patient. I have called and relayed this information to the patient's mother : Patient is part of the [facility] - being seen by their Speech Language Pathologists : Zina Thomas and Osman Rodriguez. Per Phyllis's: DIRECTOR OF MECHANICAL ENGINEERING notes need to be obtained so that she can determine the length/scope of the patient's SLE appointment so that it may be properly scheduled. I will contact the [employer] to request these records. documented in this encounter Plan of Treatment Not on file documented as of this encounter Visit Diagnoses Not on filedocumented in this encounter Care Teams Educational Resource Coordinator Relationship Specialty Start Date End Date Naina Lindsey MD [address] [place] [address] PCP - General 02/13/15 documented as of this encounter
--- OUTSIDE RECORDS SUMMARY | 2024-01-05 18:31 | XMS_ITS | Encounter Summary ---
Author Organization [facility] Address [address] [place] [address] Care Team Providers Care Handyperson Name Role Phone César Robert MD, Naina Primary Care Provider [phone] Reason for Visit * Reason Onset Date Comments Appointment Related 05/25/2015 Encounter Details Date Type Department Care Team (Late st Contact Info) Description 05/25/2015 Telephone [facility] Rehabilitation Therapy - [address] [phone] Therapy, Outpatient, Appointment Related Social History Tobacco [...] on filedocumented in this encounter Care Teams Handyperson Relationship Specialty Start Date End Date Naina Lindsey MD [address] [place] [address] PCP - General 02/13/15 documented as of this encounter
--- OUTSIDE RECORDS SUMMARY | 2024-01-05 18:31 | XMS_ITS | Encounter Summary ---
Author Organization [facility] Address [address] [place] [address] Care Team Providers Care Rigger Up Name Role Phone César Robert MD, Naina Primary Care Provider [phone] Reason for Visit * Reason Onset Date Comments DME 08/11/2019 Encounter Details Date Type Department Care Team (Late st Contact Info) Description 08/11/2019 Telephone [facility] Rehabilitation Therapy - [facility] [address] [place], [place] [address] Candelaria Jaquez, ELVIRA [address] [place] [address] DME Social History Tobacco Use [...] filedocumented in this encounter Care Teams Rigger Up Relationship Specialty Start Date End Date Naina Lindsey MD [address] [place] [address] PCP - General 02/13/15 documented as of this encounter
--- OUTSIDE RECORDS SUMMARY | 2024-01-05 18:31 | XMS_ITS | Encounter Summary ---
Author Organization [facility] Address [address] [place] [address] Care Team Providers Care Coating And Baking Operator Name Role Phone César Robert MD, Naina Primary Care Provider [phone] Reason for Visit * Reason Onset Date Comments Appointment Related 03/03/2019 Encounter Details Date Type Department Care Team (Late st Contact Info) Description 03/03/2019 Telephone [facility] Rehabilitation Therapy - [address] [address] Therapy, Physical Appointment Related Social History Tobacco [...] on filedocumented in this encounter Care Teams Coating And Baking Operator Relationship Specialty Start Date End Date Naina Lindsey MD [address] [place] [address] PCP - General 02/13/15 documented as of this encounter
--- OUTSIDE RECORDS SUMMARY | 2024-01-05 18:31 | XMS_ITS | Encounter Summary ---
Author Organization Health system Address [address] [place] [address] Care Team Providers Care Teaching Supervisor Name Role Phone César Robert MD, Naina Primary Care Provider [phone] Reason for Visit * Reason Onset Date Comments Appointment Related 11/26/2018 Encounter Details Date Type Department Care Team (Late st Contact Info) Description 11/26/2018 Telephone [facility] Rehabilitation Therapy - [address] [address] Therapist, Physical, PT Appointment Related Social History [...] on filedocumented in this encounter Care Teams Teaching Supervisor Relationship Specialty Start Date End Date Naian Lindsey MD [address] [place] [address] [place] [address] PCP - General 02/13/15 documented as of this encounter
--- OUTSIDE RECORDS SUMMARY | 2024-01-05 18:31 | XMS_ITS | Encounter Summary ---
Author Organization [facility] Address [address] [place] [address] Care Team Providers Care Slate Picker Name Role Phone César Robert MD, Naina Primary Care Provider [phone] Reason for Visit * Reason Onset Date Comments Appointment Related 03/02/2019 Encounter Details Date Type Department Care Team (Late st Contact Info) Description 03/02/2019 Telephone [facility] Rehabilitation Therapy - [address] [address] Therapy, Physical Appointment Related Social History Tobacco Use Types Packs/Day Years Used Date Smoking Tobacco: Never Assessed Sex and Gender Information Value Date Recorded Sex Assigned at Not on file Gender Identity Not on file Sexual Orientation Not on file documented as of this encounter Miscellaneous Notes * Telephone Encounter - Gretchen Dietz MA - 03/02/2019 0534 EST Voicemail message left for this patient asking that she call back into the wheelchair clinic at [phone] to confirm her availability for a custom molding appointment here at [facility] with Candelaria Jaquez, PT, DPT and Ramin Samuel ATP from [facility] for Thu04/06/19, 02-05. GRETCHEN DIETZ MA 03/02/2019 15:46 documented in this encounter Plan of Treatment Not on file documented as of this encounter Visit Diagnoses Not on filedocumented in this encounter Care Teams Slate Picker Relationship Specialty Start Date End Date Naina Lindsey MD [address] [place] [address] PCP - General 02/13/15 documented as of this encounter
--- OUTSIDE RECORDS SUMMARY | 2024-01-05 18:31 | XMS_ITS | Encounter Summary ---
Author Organization [facility] Address [address] [place] [address] Care Team Providers Care Investor Relations Director Name Role Phone César Robert MD, Naina Primary Care Provider [phone] Reason for Visit * Reason Onset Date Comments Appointment Related 04/06/2019 Encounter Details Date Type Department Care Team (Late st Contact Info) Description 04/06/2019 Telephone [facility] Rehabilitation Therapy - [address] [phone] Therapy, Physical Appointment Related Social History Tobacco [...] of May 04 from - here at [facility]. This is a re-schedule from today as the vendor was ill. Gretchen Dietz MA 04/06/2019 11:26 documented in this encounter Plan of Treatment Not on file documented as of this encounter Visit Diagnoses Not on filedocumented in this encounter Care Teams Investor Relations Director Relationship Specialty Start Date End Date Naina Lindsey MD [address] [place], [place] [address] PCP - General 02/13/15 documented as of this encounter
--- OUTSIDE RECORDS SUMMARY | 2024-01-05 18:31 | XMS_ITS | Encounter Summary ---
Author Organization [facility] Address [address] [place] [address] Care Team Providers Care Winch Truck Operator Name Role Phone César Robert MD, Naina Primary Care Provider [phone] Encounter Details Date Type Department Care Team (Latest Contact Info) Description 07/24/2015 12:40 EDT - 07/24/2015 23:59 EDT Hospital Encounter [address] [address] Naina Lindsey MD [address] [place], [place] [address] Discharge Disposition: Auto Discharge Social History Tobacco [...] on filedocumented in this encounter Care Teams Winch Truck Operator Relationship Specialty Start Date End Date Naina Lindsey MD [address] [facility] [place] [address] PCP - General 02/13/15 documented as of this encounter
--- OUTSIDE RECORDS SUMMARY | 2024-01-05 18:31 | XMS_ITS | Encounter Summary ---
Author Organization [facility] Address [address] [place] [address] Care Team Providers Care Sales Broker Name Role Phone César Robert MD, Naina Primary Care Provider [phone] Encounter Details Date Type Department Care Team (Latest Contact Info) Description 04/03/2015 9:31 EST - 04/03/2015 23:59 EST Hospital Encounter [address] [address] Naina Lindsey MD [address] [place], [place] [id number] Discharge Disposition: Home or Self Care Social [...] filedocumented in this encounter Care Teams Sales Broker Relationship Specialty Start Date End Date Naina Lindsey MD [address] [place] [address] PCP - General 02/13/15 documented as of this encounter
--- OUTSIDE RECORDS SUMMARY | 2024-01-05 18:31 | XMS_ITS | Encounter Summary ---
Author Organization [facility] Address [address] [place] [address] Care Team Providers Care Advertising Assistant Manager Name Role Phone César Robert MD, Naina Primary Care Provider [phone] Reason for Visit * Reason Onset Date Comments Appointment Related 10/25/2019 Encounter Details Date Type Department Care Team (Late st Contact Info) Description 10/25/2019 Telephone [facility] Rehabilitation Therapy - [address] [address] Therapy, Physical Appointment Related Social History Tobacco [...] wheelchair clinic appointment, to occur tomorrow at [facility]. They confirmed their availability for this date/time. Gretchen Dietz MA 10/25/2019 15:15 documented in this encounter Plan of Treatment Not on file documented as of this encounter Visit Diagnoses Not on filedocumented in this encounter Care Teams Advertising Assistant Manager Relationship Specialty Start Date End Date Naina Lindsey MD [address] [place], [place] [address] PCP - General 02/13/15 documented as of this encounter
--- OUTSIDE RECORDS SUMMARY | 2024-01-05 18:31 | XMS_ITS | Encounter Summary ---
Author Organization [facility] Address [address] [place] [address] Care Team Providers Care Neurology Teacher Name Role Phone César Robert MD, Naina Primary Care Provider [phone] Reason for Visit * Reason Onset Date Comments Appointment Related 05/14/2015 Encounter Details Date Type Department Care Team (Late st Contact Info) Description 05/14/2015 Telephone [facility] Rehabilitation Therapy - [address] [address] Therapy, Outpatient, Appointment Related Social History Tobacco [...] on filedocumented in this encounter Care Teams Neurology Teacher Relationship Specialty Start Date End Date Naina Lindsey [place] [address] PCP - General 02/13/15 documented as of this encounter
--- OUTSIDE RECORDS SUMMARY | 2024-01-05 18:31 | XMS_ITS | Encounter Summary ---
Author Organization Health system Address [address] [place] [address] Care Team Providers Care Emblem Fuser Tender Name Role Phone César Robert MD, Naina Primary Care Provider [phone] Reason for Visit * Reason Onset Date Comments Other 01/04/2016 Encounter Details Date Type Department Care Team (Late st Contact Info) Description 01/04/2016 Telephone [facility] Rehabilitation Therapy - [address] [phone] Therapy, Outpatient, Other Social History Tobacco Use [...] I have spoken to Oliver Lozano at [facility], but he could not see in their paperwork a clear delivery timeframe. I have sent an e-mail to Ramin Samuel and Amna Giraldo at [facility] asking that someone call Javed and give her an estimate of when the chair will be delivered. documented in this encounter Plan of Treatment Not on file documented as of this encounter Visit Diagnoses Not on filedocumented in this encounter Care Teams Emblem Fuser Tender Relationship Specialty Start Date End Date Naina Lindsey MD [address] [place] [address] PCP - General 02/13/15 documented as of this encounter
--- OUTSIDE RECORDS SUMMARY | 2024-01-05 18:31 | XMS_ITS | Encounter Summary ---
Author Organization [facility] Address [address] [place] [address] Care Team Providers Care Brass Bobbin Winder Name Role Phone César Robert MD, Naina Primary Care Provider [phone] Encounter Details Date Type Department Care Team (Latest Contact Info) Description 11/30/2018 12:49 EDT - 11/30/2018 23:59 EDT Hospital Encounter [address] [address] Lorna Bal, EXCAVATING SUPERVISOR [address] [facility] [address] [place] [phone] Discharge Disposition: Auto Discharge Social History Tobacco [...] on filedocumented in this encounter Care Teams Brass Bobbin Winder Relationship Specialty Start Date End Date Naina Lindsey MD [address] [place] [address] PCP - General 02/13/15 documented as of this encounter
--- OUTSIDE RECORDS SUMMARY | 2024-01-05 18:31 | XMS_ITS | Encounter Summary ---
Author Organization [facility] Address [address] [place] [address] Care Team Providers Care Insole Buffer Name Role Phone César Robert MD, Naina Primary Care Provider [phone] Reason for Visit * Reason Onset Date Comments Appointment Related 05/04/2019 Encounter Details Date Type Department Care Team (Late st Contact Info) Description 05/04/2019 Telephone [facility] Rehabilitation Therapy - [address] [phone] Therapy, Physical Appointment Related Social History Tobacco [...] on filedocumented in this encounter Care Teams Insole Buffer Relationship Specialty Start Date End Date Naina Lindsey MD [address] [place] [address] PCP - General 02/13/15 documented as of this encounter
--- OUTSIDE RECORDS SUMMARY | 2024-01-05 18:31 | XMS_ITS | Encounter Summary ---
Author Organization [facility] Address [address] [place] [address] Care Team Providers Care Strip Mill Operator Name Role Phone César Robert MD, Naina Primary Care Provider [phone] Reason for Visit * Reason Onset Date Comments Appointment Related 09/29/2019 Encounter Details Date Type Department Care Team (Late st Contact Info) Description 09/29/2019 Telephone [facility] Rehabilitation Therapy - [address] [address] Therapy, Physical Appointment Related Social History Tobacco [...] PT, DPT and Ramin Samuel ATP from [facility]. She confirmed their availability for this date/time. Gretchen Dietz MA 09/29/2019 11:11 documented in this encounter Plan of Treatment Not on file documented as of this encounter Visit Diagnoses Not on filedocumented in this encounter Care Teams Strip Mill Operator Relationship Specialty Start Date End Date Naina Lindsey MD [address] [place] [address] PCP - General 02/13/15 documented as of this encounter
--- OUTSIDE RECORDS SUMMARY | 2024-01-05 18:31 | XMS_ITS | Encounter Summary ---
Author Organization [facility] Address [address] [place] [address] Care Team Providers Care Audiology Technician Name Role Phone César Robert MD, Naina Primary Care Provider Encounter Details Date Type Department Care Team (Latest Contact Info) Description 12/04/2015 19:02 EDT - 12/04/2015 23:[address] [facility] [address] [place] [address] Leonid Candelaria, PT [address] [place] [phone] Andrade Lux MD [address] [facility] [address] [phone] Naina Lindsey MD [address] [place], [place] [address] Discharge Disposition: Auto Discharge Social History Tobacco [...] filedocumented in this encounter Care Teams Audiology Technician Relationship Specialty Start Date End Date Naina Lindsey MD [address] [place] [address] PCP - General 02/13/15 documented as of this encounter
--- OUTSIDE RECORDS SUMMARY | 2024-01-05 18:31 | XMS_ITS | Encounter Summary ---
Author Organization [facility] Address [address] [place] [address] Care Team Providers Care Architectural Inspector Name Role Phone César Robert MD, Naina Primary Care Provider [phone] Encounter Details Date Type Department Care Team (Late st Contact Info) Description 08/24/2018 Results Only [facility] [phone] Raul Mak MD [address] [place] [address] Social History Tobacco Use Types Packs/Day Years [...] ? SHELTONJOHNArthur Hayes ? Accession #: ? [id number] ? : ? 1995 (Age: 23) ??F ? Collect Date: ? 08/24/2018 ? Location: ? [facility] ? Receive Date: ? 08/25/2018 ? Provider: RAUL MAK MD Copy to: JERED MARTINEZ NUCLEAR WASTE PROCESS OPERATOR ? Final Pathologic Diagnosis: UTERUS AND FALLOPIAN [...] and mucin greatest dimension paratubal cyst. ? Laser Machine Operator sections are submitted as follows: BLOCK MONTOYA 1-2- ??detached left fallopian tube cross-sections and fimbria 3-4- ??attached right fallopian tube cross-sections with paratubal cyst and fimbria 5- bilateral cervix (anterior marked by blue) 6- ??bilateral lower uterine segments (anterior marked by blue ink) 7-9- ??posterior endomyometrium including probable endometrial polyp 10-11- ??anterior endomyometrium access services representative sections Dr. Mora 08/26/2018 3:08 PM End of Report [facility] 08/24/2018 11:4 5 EDT 08/25/2018 11:45 EDT Raul Mak MD PATHOLOGY ORDERABLES [facility] [address] [place] [address] documented in this encounter Visit Diagnoses Not on filedocumented in this encounter Care Teams Architectural Inspector Relationship Specialty Start Date End Date Naina Lindsey MD [address] [place] [address] PCP - General 02/13/15 documented as of this encounter
--- OUTSIDE RECORDS SUMMARY | 2024-01-05 18:31 | XMS_ITS | Encounter Summary ---
Author Organization [facility] Address [address] [place] [address] Care Team Providers Care Supervisor Marble Name Role Phone César Robert MD, Naina Primary Care Provider [phone] Reason for Visit * Reason Onset Date Comments Appointment Related 10/31/2019 Encounter Details Date Type Department Care Team (Late st Contact Info) Description 10/31/2019 Telephone [facility] Rehabilitation Therapy - [address] [phone] Therapy, Physical Appointment Related Social History Tobacco [...] occur in two business days time at [facility].. Gretchen Dietz MA 10/31/2019 14:41 documented in this encounter Plan of Treatment Not on file documented as of this encounter Visit Diagnoses Not on filedocumented in this encounter Care Teams Supervisor Marble Relationship Specialty Start Date End Date Naina Lindsey MD [address] [place] [address] PCP - General 02/13/15 documented as of this encounter
--- OUTSIDE RECORDS SUMMARY | 2024-01-05 18:31 | XMS_ITS | Encounter Summary ---
Author Organization [facility] Address [address] [place] [address] Care Team Providers Care Organ Teacher Name Role Phone César Robert MD, Naina Primary Care Provider [phone] Encounter Details Date Type Department Care Team (Late st Contact Info) Description 04/02/2021 Lab Requisition [facility] Pathology & Laboratory Medicine - [address] [phone] Outr Resulting Lab, Provider Social History Tobacco [...] Outr Resulting Lab MICROBIOLOGY - GENERAL ORDERABLES [facility] [address] [place] [address] * COVID-19 TESTING (04/02/2021 10:55 EST) COVID-19 rt-PCR Result Negative Negative 04/03/2021 14:17 EST [facility] Comment: This test has [...] performed using the eve SARS-CoV-2 assay ([employer] on the Eve 6800 System Performing Lab Eve [address] [facility] Lab 04/03/2021 14:17 EST [facility] Swab 04/02/2021 10:5 5 EST 04/02/2021 22:22 EST Provider Outr Resulting Lab MICROBIOLOGY - GENERAL ORDERABLES [facility] [address] [place] [address] documented in this encounter Visit Diagnoses Not on filedocumented in this encounter Care Teams Organ Teacher Relationship Specialty Start Date End Date Naina Lindsey MD [address] [place] [address] [place] [address] PCP - General 02/13/15 documented as of this encounter
--- OUTSIDE RECORDS SUMMARY | 2024-01-05 18:31 | XMS_ITS | Encounter Summary ---
Author Organization [facility] Address [address] [place] [address] Care Team Providers Care Director Embalmer Name Role Phone César Robert MD, Naina Primary Care Provider [phone] Encounter Details Date Type Department Care Team (Latest Contact Info) Description 05/29/2015 17:07 EST - 05/29/2015 23:59 EST Hospital Encounter [address] [address] Naina Lindsey MD [address] [place], [place] [address] Discharge Disposition: Home or Self Care Social [...] Code Departure Means Destination Home or Self Penitentiary documented in this encounter Plan of Treatment Not on file documented as of this encounter Visit Diagnoses Not on filedocumented in this encounter Care Teams Director Embalmer Relationship Specialty Start Date End Date Naina Lindsey MD [address] [facility] [facility] [place] [address] PCP - General 02/13/15 documented as of this encounter
--- OUTSIDE RECORDS SUMMARY | 2024-01-05 18:31 | XMS_ITS | Encounter Summary ---
Author Organization [facility] Address [address] [place] [address] Care Team Providers Care Dinkey Driver Name Role Phone César Robert MD, Naina Primary Care Provider [phone] Reason for Visit * Reason Onset Date Comments Appointment Related 11/05/2018 Encounter Details Date Type Department Care Team (Late st Contact Info) Description 11/05/2018 Telephone [facility] Rehabilitation Therapy - [address] [address] Therapist, Physical, PT Appointment Related Social History Tobacco Use Types Packs/Day Years Used Date Smoking Tobacco: Never Assessed Sex and Gender Information Value Date Recorded Sex Assigned at Not on file Gender Identity Not on file Sexual Orientation Not on file documented as of this encounter Miscellaneous Notes * Telephone Encounter - Gretchen Dietz - 11/05/2018 1344 EDT [facility] [address] [address] Person providing information? Fernanda - Caregiver Guardian: - Phone number: [phone] 1. Who recommended that you be seen [...] additional questionnaire (if needed)? - Gretchen Dietz [facility] - [address] [address] Telephone Intake Information for Scheduling NEW Patients [...] on filedocumented in this encounter Care Teams Dinkey Driver Relationship Specialty Start Date End Date Naina Lindsey MD [address] [place] [address] PCP - General 02/13/15 documented as of this encounter
--- OUTSIDE RECORDS SUMMARY | 2024-01-05 18:31 | XMS_ITS | Encounter Summary ---
Author Organization [facility] Address [address] [place] [address] Care Team Providers Care Broiler Supervisor Name Role Phone César Robert MD, Naina Primary Care Provider [phone] Reason for Visit * Reason Onset Date Comments Appointment Related 09/27/2019 Encounter Details Date Type Department Care Team (Late st Contact Info) Description 09/27/2019 Telephone [facility] Therapy - [address] [phone] Therapy, Physical Appointment Related Social History Tobacco [...] on filedocumented in this encounter Care Teams Broiler Supervisor Relationship Specialty Start Date End Date Naina Lindsey MD [address] [place] [address] PCP - General 02/13/15 documented as of this encounter
--- OUTSIDE RECORDS SUMMARY | 2024-01-05 18:31 | XMS_ITS | Encounter Summary ---
Author Organization [facility] Address [address] [place] [address] Care Team Providers Care Photo Tube Assembler Name Role Phone César Robert MD, Naina Primary Care Provider [phone] Reason for Visit * Reason Onset Date Comments Appointment Related 11/04/2018 Encounter Details Date Type Department Care Team (Late st Contact Info) Description 11/04/2018 Telephone [facility] Rehabilitation Therapy - [address] [id number] Therapist, Physical, PT Appointment Related Social History [...] filedocumented in this encounter Care Teams Photo Tube Assembler Relationship Specialty Start Date End Date Naina Lindsey MD [address] [place] [address] [place], [place] [id number] PCP - General 02/13/15 documented as of this encounter
--- OUTSIDE RECORDS SUMMARY | 2024-01-05 18:31 | XMS_ITS | Encounter Summary ---
Author Organization [facility] Address [address] [place] [address] Care Team Providers Care Knitter Helper Name Role Phone César Robert MD, Naina Primary Care Provider [phone] Reason for Visit * Reason Onset Date Comments Appointment Related 02/13/2015 Encounter Details Date Type Department Care Team (Late st Contact Info) Description 02/13/2015 Telephone [facility] Rehabilitation Therapy - [address] [address] Therapy, Outpatient, Appointment Related Social History Tobacco Use Types Packs/Day Years Used Date Smoking Tobacco: Never Assessed Sex and Gender Information Value Date Recorded Sex Assigned at Not on file Gender Identity Not on file Sexual Orientation Not on file documented as of this encounter Miscellaneous Notes * Telephone Encounter - Mile Ronquillo - 02/13/2015 1102 EDT [facility] [address] [address] Person providing information? Mother Guardian: Mother Phone number: [phone] 1. Who recommended that you be seen [...] send an additional questionnaire (if needed)? -- [facility] - [address] [address] Telephone Intake Information for Scheduling NEW Patients [...] 30 total therapy visits (PT, OT, and SOILED LINEN DISTRIBUTOR combined) between 04-27-14 and 04-26-15. If the patient has exceeded 30 visits already, further therapy will not be covered by their insurance. Date: Tuesday April 07, 2015 Therapist: Candelaria Jaquez, PT @ 1:15 Location: [facility] Name of Supplier: [employer] Name of Rep: Ramin @ 1:45 Reason For Appt: manual Vs. Power Pressure Mapping? no Mile Ronquillo documented in this encounter Plan of Treatment Not on file documented as of this encounter Visit Diagnoses Not on filedocumented in this encounter Care Teams Knitter Helper Relationship Specialty Start Date End Date Naina Lindsey MD [address] [place] [address] PCP - General 02/13/15 documented as of this encounter
--- OUTSIDE RECORDS SUMMARY | 2024-01-05 18:31 | XMS_ITS | Encounter Summary ---
Author Organization [facility] Address [address] [place] [address] Care Team Providers Care Pattern Attendant Name Role Phone César Robert MD, Naina Primary Care Provider [phone] Reason for Visit * Reason Onset Date Comments Appointment Related 04/13/2019 Encounter Details Date Type Department Care Team (Late st Contact Info) Description 04/13/2019 Telephone [facility] Rehabilitation Therapy - [address] [phone] Therapy, Physical Appointment Related Social History Tobacco [...] erickson Cristobal upcoming wheelchair appointment here at C on 05/06 from 2-4. She confirmed they were available for the date/time. Gretchen Dietz MA 04/13/2019 15:19 documented in this encounter Plan of Treatment Not on file documented as of this encounter Visit Diagnoses Not on filedocumented in this encounter Care Teams Pattern Attendant Relationship Specialty Start Date End Date Naina Lindsey MD [address] [place] [address] [place], [place] [id number] PCP - General 02/13/15 documented as of this encounter
--- OUTSIDE RECORDS SUMMARY | 2024-01-05 18:31 | XMS_ITS | Encounter Summary ---
Author Organization [facility] Address [address] [place] [address] Care Team Providers Care Repair Supervisor Name Role Phone César Robert MD, Naina Primary Care Provider [phone] Reason for Visit * Reason Onset Date Comments Appointment Related 11/30/2015 Encounter Details Date Type Department Care Team (Late st Contact Info) Description 11/30/2015 Telephone [facility] Rehabilitation Therapy - [address] [phone] Therapy, Outpatient, Appointment Related Social History Tobacco [...] on filedocumented in this encounter Care Teams Repair Supervisor Relationship Specialty Start Date End Date Naina Lindsey MD [address] [place] [address] PCP - General 02/13/15 documented as of this encounter
== END 2024-01-05 18:18 | disposition home or self-care (01) ==
LOC: LBN 18:17
PROVIDERS: PCP Nurse Practitioner Family; Visit Provider Nurse Practitioner Family
DX: L02.91 Cutaneous abscess, unspecified (principal)
CPT/HCPCS: 80053; 85652; 85025; 86140

== ENCOUNTER 2024-01-12 21:09 | Outpatient (REF) | payer MEDICAID, SELFPAY ==
[2024-01-12 11:58] LABS: Abs Immature Grans 0.02 10^3/uL (0.0-0.06); Absolute Basophil Count 0.03 10^3/uL (0.0-0.2); Absolute Eosinophil Count 0.06 10^3/uL (0.0-0.7); Absolute Neutrophil Count 4.58 10^3/uL (1.2-6.7); Basophils % 0.5 %; Eosinophils % 0.9 %; HCT 39.8 % (36.0-46.0); HGB 12.7 g/dL (11.2-15.7); Immature Grans % 0.3 %; Lymphocytes % 22.8 %; MCHC 31.9 % (32.0-36.0); MCV 85 fL (80-95); Monocytes % 6.1 %; Neutrophils % 69.4 %; RDW 16.5 % (11.7-14.6); RDW-SD 51.5 fL; WBC 6.59 10^3/uL (4.4-10.8)
[2024-01-12 12:13] LABS: ALT 44 U/L (14-59); AST 25 U/L (15-37); Albumin 3.3 g/dL (3.4-5.0); Alkaline Phosphatase 201 U/L (46-116); Anion Gap 9.8 mmol/L (3-11); BUN 13 mg/dL (7-18); Bilirubin, Total 0.22 mg/dL (0.2-1.0); C-Reactive Protein 11.08 mg/dL (<or=0.5); CO2 27.2 mmol/L (21.0-32.0); CREATININE 0.5 mg/dL (0.55-1.02); Calcium 9.6 mg/dL (8.5-10.1); Chloride 101 mmol/L (98-107); Estimated GFR 129.32 (mL/min/1.73m2); Glucose 93 mg/dL (74-106); Potassium 4.4 mmol/L (3.5-5.1); Sodium 138 mmol/L (136-145); Total Protein 7.9 g/dL (6.4-8.2)
--- OUTSIDE RECORDS SUMMARY | 2024-01-12 21:11 | XMS_ITS | Continuity of Care Document ---
Author Organization [facility] Address [address] [place] [address] Encounter LTTL_[place] FIN NBR [id number] Date(s): 01/27/23 - 01/27/23 [facility] [address] [place] [address]- [place] Discharge Disposition: Home or Self Care Attending Physician: JERED MARTINEZ APRN Admitting Physician: JERED MARTINEZ APRN Referring Physician: JERED MARTINEZ APRN Results Laboratory List Name Date Sedimentation Rate (ESR) 01/27/23 Most recent to oldest [Reference Range]: 1 ESR, Westergren [0-20 mm/hr] 85 mm/hr *HI* (01/27/23 2:25 PM)
--- OUTSIDE RECORDS SUMMARY | 2024-01-12 21:12 | XMS_ITS | Encounter Summary ---
Author Organization [facility] Address [facility] [place] [address] Care Team Providers Care Chef Saucier Name Role Phone Lorna Bal APRN Primary Care Provider [phone] Encounter Details Date Type Department Care Team (Late st Contact Info) Description 01/12/2024 Telephone [place] [phone] Destiny Callaway MD [facility] [place] [address] Social History Tobacco Use Types Packs/Day Years [...] encounter Miscellaneous Notes * Telephone Encounter - Nina Ungerwaleska Dumont - 01/12/2024 2:16 PM EDT CLINIC PHONE COVERAGE: Reason for Call: Test Results PCP: Lorna Bal APRN / Treating provider: Cesia Message: Jackelyn Mckay calling looking to discuss the following test results. Ordering Provider: Cesia Type of Test: CRP Lab Date of Test: 01/12/24 Where Was This Test Performed: Caller Name (If other than patient): Nely- Caregiver Relationship to Patient (if other than self): Paid Caregiver Callback number: [phone] Best time you are available: Any Route Per Clinic Coverage Page documented in this encounter Plan of Treatment Upcoming Encounters Date Type Department Care Team (Late st Contact Info) Description 06/02/2024 12:30 PM EST Office Visit [place] [address] Hollie Ambriz MD [facility] [place] [address] documented as of this encounter Visit Diagnoses Not on filedocumented in this encounter Care Teams Chef Saucier Relationship Specialty Start Date End Date Lorna Bal APRN [address] [place] [address] PCP - General Family Medicine 05/27/18 documented as of this encounter
--- OUTSIDE RECORDS SUMMARY | 2024-01-12 21:12 | XMS_ITS | Encounter Summary ---
Author Organization [facility] Address [facility] [place] [address] Care Team Providers Care Refined Syrup Operator Name Role Phone Lorna Bal APRN Primary Care Provider [phone] Encounter Details Date Type Department Care Team (Late st Contact Info) Description 12/15/2023 Notes Only Infectious Disease at [facility] [place] [phone] Yas Tracy, RN Social History Tobacco Use Types Packs/Day Years Used Date Smoking Tobacco: Never Passive Smoke Exposure: Never Smokeless Tobacco: Never Comments:NO SMOKERS IN THE H OME Alcohol Use Standard Drinks/Week Comments No 0 (1 standard drink = 0.6 oz pur e alcohol) [facility] Utilities Answer Date Recorded In the past 12 months has e electric, gas, oil, or water [employer] threatened to shut off services in [...] any time in the past 12 m [facility], were you homeless or living in a [...] PM EST Office [place] [address] Hollie Ambriz MD [facility] [place] [address] documented as of this encounter Visit Diagnoses Not on filedocumented in this encounter Care Teams Refined Syrup Operator Relationship Specialty Start Date End Date Lorna Bal APRN [address] [place] [address] PCP - General Family Medicine 05/27/18 documented as of this encounter
--- OUTSIDE RECORDS SUMMARY | 2024-01-12 21:12 | XMS_ITS | Encounter Summary ---
Author Organization [facility] [place] [address] Care Team Providers Care Torpedoman'S Mate Name Role Phone Lorna Bal APRN Primary Care Provider [phone] Reason for Referral * Diagnostic Test (Routine) - Closed Specialty Diagnoses / Procedures Referred By Contac t Referred To Contact Radiology Diagnoses Abscess Procedures IR Drain Check/Change/Remove Mich Martino MD [facility] DR INTERVENTIONAL [place] [address] [place] [address] Referral ID Status Reason Start Date Expiration Date V isits Requested Visits Authorized [id number] Closed Specialty Service Requested 12/03/2023 06/04/2025 1 1 Reason for Visit * Diagnostic Test (Routine) - Closed Specialty Diagnoses / Procedures Referred By Contac t Referred To Contact Radiology Diagnoses Abscess Procedures IR Drain Check/Change/Remove Mich Martino MD [facility] INTERVENTION[place] [address] [place] [address] Referral ID Status Reason Start Date Expiration Date V isits Requested Visits Authorized [id number] Closed Specialty Service Requested 12/03/2023 06/04/2025 1 1 Encounter Details Date Type Department Care Team (Latest Contact Info) Description 12/21/2023 11:08 AM EDT - 12/21/2023 11:59 PM EDT Hospital [place] [address] Mich Martino MD [facility] DR INTERVENTIONAL [place] [address] Abscess Discharge Disposition: Home Social History Tobacco Use Types Packs/Day Years Used Date Smoking Tobacco: Never Passive Smoke Exposure: Never Smokeless Tobacco: Never Comments:NO SMOKERS IN THE H OME Alcohol Use Standard Drinks/Week Comments No 0 (1 standard drink = 0.6 oz pur e alcohol) [facility] Utilities Answer Date Recorded In the past 12 months has th e [employer], gas, oil, or water [employer] threatened to shut off services in your [...] any time in the past 12 m [facility], were you homeless or living in a [...] is during regular office hours, please call [phone]. If it is after regular office hours, or on weekends or holidays, please call [phone] and ask to speak to the Paving Foreman application support engineer for Interventional Radiology. You have received medication [...] - See Instructions). FLUSH PROTOCOL WITH MEDICATIONS ([facility]): Before med infusion: flush with NS 10 [...] of : 1995 AGE: 28 y.o. Address: [address] [place] [address] (home) [phone] (work) Mobile: Telephone Information: Referring Provider: Mich Martino REASON FOR VISIT: Order Questions Answers Where will study be performed? [facility] Radiology [120] To be scheduled On expected [...] [Transparent Dressings] Itching and Dermatitis Please use [id number] Cyclobenzaprine Other Reaction(s): Not available Doxycycline Other [...] All Drainage Procedures 06/25/2022 Mich Martino MD [facility] INTERVENTIONL RAD IR ALL DRAINAGE PROCEDURES 07/04/2022 IR All Drainage Procedures 07/04/2022 Mich Martino MD [facility] INTERVENTIONL RAD IR ALL DRAINAGE PROCEDURES 07/24/2022 IR All Drainage Procedures 07/24/2022 Anurag Kumar MD [facility] INTERVENTION[facility] RAD IR ALL DRAINAGE PROCEDURES 09/26/2022 IR All Drainage Procedures 09/26/2022 Jamaal Jenkins, DO [facility] INTERVENTIONL RAD IR ALL DRAINAGE PROCEDURES 10/30/2023 IR All Drainage Procedures 10/30/2023 Andrade Melvin MD [facility] INTERVENTIONL RAD IR DRAIN CHECK/CHANGE/REMOVE 07/01/2022 IR Drain Check/Change/Remove 07/01/2022 Jamaal Jenkins, DO [facility] INTERVENTIONL RAD IR DRAIN CHECK/CHANGE/REMOVE 08/11/2022 IR Drain Check/Change/Remove 08/11/2022 Piter Self MD [facility] INTERVENTIONL RAD IR DRAIN CHECK/CHANGE/REMOVE 08/25/2022 IR Drain Check/Change/Remove 08/25/2022 Jamaal Jenkins, DO [facility] INTERVENTIONL RAD IR DRAIN CHECK/CHANGE/REMOVE 09/10/2022 IR Drain Check/Change/Remove 09/10/2022 Mich Martino MD [facility] INTERVENTIONL RAD IR DRAIN CHECK/CHANGE/REMOVE 12/03/2023 IR Drain Check/Change/Remove [facility] INTERVENTIONL RAD PRO APPLY OF HIP CASTS, TWO LEGS 08/15/2010 CAST APPLICATION, HIP SPICA, BOTH LEGS performed by BARRERA OLIVER at [facility] MAIN OR PRO COLONOSCOPY, BIOPSY N/A 08/05/2023 COLONOSCOPY FLEXIBLE, WITH BX (WRVU 3.56) performed by Jamar Gastelum MD at [facility] ENDOSCOPY PRO I&D, POST SPINE, LUMB/SACR/LUMBOSAC N/A 05/20/2014 @I & D, OPEN, DEEP ABSCESS, LUMBAR, SACRAL, LUMBOSACRAL performed by Freddy Isbell MD at [facility] MAIN OR PRO I&D, POST SPINE, LUMB/SACR/LUMBOSAC N/A 05/26/2014 @I & D, OPEN, DEEP ABSCESS, LUMBAR, SACRAL, LUMBOSACRAL performed by Freddy Isbell MD at [facility] MAIN OR PRO IMPACT TOOTH REMOV COMP BONY N/A 06/14/2018 SURGICAL EXTRACTIONS, REMOVAL OF IMPACTED TOOTH, COMPLETELY BONY (WRVU 1.93) performed by Keith Cotton MD at [facility] OSC PRO OSTEOTOMY FEMUR SHAFT/SUPRACONDY 08/15/2010 ??OSTEOTOMY, FEMUR SHAFT OR SUPRACONDYLAR W/O FIXATION performed by BARRERA OLIVER at [facility] MAIN OR PRO RECONSTRUC HIP SOCKET, RESEC FEM HEAD 08/15/2010 ??ACETABULOPLASTY (GIRDLESTONE), RESECTION FEMORAL HEAD, BILATERAL performed by BARRERA OLIVER [facility] MAIN OR PRO REMOVAL DEEP IMPLANT 08/15/2010 REMOVAL IMPLANT, DEEP, BRUNO performed by BARRERA OLIVER at [facility] MAIN OR PRO REMOVAL ERUPTED TOOTH WITH ELEVATION OF MUCOPERIOSTEAL FLAP N/A 06/14/2018 SURGICAL EXTRACTIONS REQUIRING ELEVATION OF MUCOPERIOSTEAL FLAP AND REMOVAL OF BONE OR SECTION OF TOOTH (WRVU 1.09) performed by Keith Cotton MD at [facility] OSC PRO REMOVE INFUSN DEVICE/PUMP N/A 05/11/2014 REMOVAL OF SPINE INFUSION PUMP performed by Jamaal Samuel MD at [facility] MAIN OR PRO REMOVE SPINAL CANAL CATHETER N/A 05/11/2014 REMOVAL OF INTRATHECAL OR EPIDURAL CATHETER performed by Jamaal Samuel MD at [facility] MAIN OR PRO REPR, DURAL/CSF LEAK, NOT REQ LAMINECTOMY N/A 05/20/2014 @REPAIR DURAL\CSF LEAK,NOT REQUIRING LAMINECTOMY performed by Freddy Isbell MD at [facility] MAIN OR Medications: Current Outpatient [...] - See Instructions). FLUSH PROTOCOL WITH MEDICATIONS ([facility]): Before med infusion: flush with NS 10 [...] - See Instructions). FLUSH PROTOCOL WITH MEDICATIONS ([facility]): Before med infusion: flush with NS 10 [...] Resource Strain: Low Risk (02/21/2023) Received from [facility] Overall Financial Resource Strain (CARDIA) Difficulty [...] PM EST Office [place] [address] Hollie Ambriz MD [facility] DR INFECT[place] [address] documented as of this encounter Procedures Procedure [...] mLs documented in this encounter Care Teams Torpedoman'S Mate Relationship Specialty Start Date End Date Lorna Bal APRN [address] [place] [address] PCP - General Family Medicine 05/27/18 documented as of this encounter
--- OUTSIDE RECORDS SUMMARY | 2024-01-12 21:12 | XMS_ITS | Encounter Summary ---
Author Organization [facility] Address [facility] [place] [address] Care Team Providers Care Geophysical Laboratory Supervisor Name Role Phone Lorna Bal APRN Primary Care Provider [phone] Encounter Details Date Type Department Care Team (Late st Contact Info) Description 01/05/2024 Telephone [place] [phone] None None Social History Tobacco Use Types Packs/Day Years Used Date Smoking Tobacco: Never Passive Smoke Exposure: Never Smokeless Tobacco: Never Comments:NO SMOKERS IN THE H OME Alcohol Use Standard Drinks/Week Comments No 0 (1 standard drink = 0.6 oz pur e alcohol) [facility] Utilities Answer Date Recorded In the past 12 months has e [employer], gas, oil, or water [employer] threatened to shut off services in your [...] Date of Test: Weekly Labs drawn through [facility] Caller Name (If other than patient): Fannie Relationship to Patient (if other than self): Guardian Callback number: [phone] Best time you are available: Any Route Per Clinic Coverage Page documented in this encounter Plan of Treatment Upcoming Encounters Date Type Department Care Team (Late st Contact Info) Description 06/02/2024 12:30 PM EST Office [place] [address] Hollie Ambriz MD [facility] DR [place] [address] documented as of this encounter Visit Diagnoses Not on filedocumented in this encounter Care Teams Geophysical Laboratory Supervisor Relationship Specialty Start Date End Date Lorna Bal APRN [address] [place] [address] PCP - General Family Medicine 05/27/18 documented as of this encounter
--- OUTSIDE RECORDS SUMMARY | 2024-01-12 21:12 | XMS_ITS | Encounter Summary ---
Author Organization [facility] Address [facility] [place] [address] Care Team Providers Care Petroleum Refinery Laborer Name Role Phone Lorna Bal APRN Primary Care Provider [phone] Encounter Details Date Type Department Care Team [...] In the past 12 months has e [employer], gas, oil, or water [employer] threatened to shut off services in your [...] PM EST Office [place] [address] Hollie Ambriz MD [facility] [place] [address] documented as of this encounter Visit Diagnoses Not on filedocumented in this encounter Care Teams Petroleum Refinery Laborer Relationship Specialty Start Date End Date Lorna Bal APRN [address] [place] [address] PCP - General Family Medicine 05/27/18 documented as of this encounter
--- OUTSIDE RECORDS SUMMARY | 2024-01-12 21:12 | XMS_ITS | Continuity of Care Document ---
Author Organization [facility] Address [address] [place] [address] Assessment Encounter Date Assessment Date Assessment LastModified by Organization Details LastModified Time 11/10/2023 11/10/2023 The total time devoted to today's encounter, including both the auwl-uk-wjhr time with the patient and/or family/caregiv er and ycs-vsfh-pj-fa ce time I personally spent is 35 minutes. Hospital admission: 7.3.204 Hospital discharge 7.9.24. Chronic healthcare administrator reach out 7.10.24 FU in office: 7.16.24 [...] 6.5 % ear drops 2023 024 [facility] [place], [address], 11/10/2023 10:38:18 cholecalc iferol (vitamin D3) 125 mcg (5,000 unit) tablet 2023 024 [facility] [place], [address], 11/10/2023 11:06:20 baclofen 15 mg tablet 2023 024 [facility] [place], [address], 11/10/2023 10:38:17 Patient TargetsNo targets recorded. Patient InstructionsNo instructions recorded. Reason for Referral Orthopedic Surgeon Referral for Tetraplegia 2nd time sending for spasms to the right wrist/ thumb. Referring Physician: L[facility], Encounter Date: 07/24/2023 Orthopedic Surgeon Referral for Contracture of joint of hand hand specialist for right thumb pain and contracture of hand Referring Physician: Lorna Martinez [facility] Medicine, Encounter Date: 07/28/2023 Results Created Date Observation Date Name Description Value Unit Range Abnormal Flag Note LastModifiedBy Organization Detail LastModifiedTime 01/10/20 24 06/19/2022 imagi ng/di agnos tic resul t No observ ation record ed. [email or web address] Not Available 01/09 22:41:36 01/10/20 24 06/17/2022 imagi ng/di agnos tic resul t No observ ation record ed. [email or web address] Not Available 01/09 22:42:02 01/10/20 24 06/17/2022 imagi ng/di agnos tic resul t No observ ation record ed. [email or web address] Not Available 01/09 22:42:03 01/10/20 24 06/19/2022 imagi ng/di agnos tic resul t No observ ation record ed. [email or web address] Not Available 01/09 22:43:35 01/10/20 24 10/22/2018 imagi ng/di agnos tic resul t No observ ation record ed. [email or web address] Not Available 01/09 22:43:36 01/10/20 24 06/19/2022 imagi ng/di agnos tic resul t No observ ation record ed. [email or web address] Not Available 01/09 22:43:43 01/10/20 24 12/31/2022 CT, cervi dean spine No observ ation record ed. [email or web address] Not Available 01/09 22:44:41 01/10/20 24 10/22/2018 imagi ng/di agnos tic resul t No observ ation record ed. [email or web address] Not Available 01/09 22:44:46 01/10/20 24 03/04/2023 imagi ng/di agnos tic resul t No observ ation record ed. [email or web address] Not Available 01/09 22:44:48 01/10/20 24 04/04/2021 imagi ng/di agnos tic resul t No observ ation record ed. [email or web address] Not Available 01/09 22:44:48 01/10/20 24 04/04/2021 imagi ng/di agnos tic resul t No observ ation record ed. [email or web address] Not Available 01/09 22:44:49 01/10/20 24 04/04/2021 imagi ng/di agnos tic resul t No observ ation record ed. [email or web address] Not Available 01/09 22:44:50 01/10/20 24 2022 imagi ng/di agnos tic resul t No observ ation record ed. [email or web address] Not Available 01/09 22:44:51 01/10/20 24 2022 imagi ng/di agnos tic resul t No observ ation record ed. [email or web address] Not Available 01/09 22:44:52 Result Notes None recorded. Problems Name Problem SNOMED Code Status Onset Date Resolution Date Notes Provider Name and Address Organization Details Recorded Time Consciou sness and/or awarenes s finding 326583313 Active 2016 Problem Code: R41.89; Problem Code Type: ICD-10; LORNA MARTINEZ, [place] [address], [place], [address] , [place] - [facility] 3 06:06:35 Tetraple janet 73925473 Active 04/25/ 2017 05/09/20 19 - Comments only - Lorna Martinez [...] Order mesh slings, caregive r will contact [facility] to see if the ones needed are availabl e through them since not able to get through [facility]. Needs new TLSO for her back, [...] ICD-10; LORNA MARTINEZ APRN [address], [place], [address] , [facility] 3 06:06:34 Scoliosi s deformit y of spine 843023671 Active 2016 Problem Code: M41.9; Problem Code Type: ICD-10; [address], [place], [address] , [facility] 3 06:06:35 Spasm 53217183 Active 201603/02/20 17 - Comments only - Emelyn Easley MD - Patient will need on going physical therapy to help prevent worsenin g spastici ty and contract ures. Problem Code: R25.2; Problem Code Type: ICD-10; [address], [place], [address] , [facility] 3 06:06:35 Idiopath ic urticari a 48789690 Active 2016 Problem Code: L50.1; Problem Code Type: ICD-10; LORNA MARTINEZ APRN [address], [facility] [address] , [facility] 3 06:06:35 Supraven tricular tachycar belinda 3359241 Active 201606/08/19 18 - Comments only - Lorna Martinez APRN - monitor for now. Problem Code: I47.1; Problem Code Type: ICD-10; [address], [place], [address] , [facility] 3 06:06:35 Traumati c or non-trau matic injury 931257062 Active 2016 Problem Code: T14.90; Problem Code Type: ICD-10; [address], [place], [address] , [facility] 3 06:06:35 Disorder of muscle 727061100 Active 201610/21/19 17 - Comments only - Emelyn Easley MD - This causes some constipa tion that has been improved by miralax. Problem Code: M62.9; Problem Code Type: ICD-10; [address], [place], [address] , [facility] 3 06:06:35 Adult health examinat ion [...] she tolerate d the exam fairly well. Seh has never been sexually active no pap was needed. Her immuniza tion are up to date. She sees her dentist, eats healthy food and they follow all recommen ded medical care. 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 Recommen ded to continue regular checks at future visits, discusse d appropri ate ear hygiene, and advised f/u for developm ent of symptoms such as ear pulling/ pain or trouble hearing. The patient verbaliz ed understa nding and agreemen t to this care plan. 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 Wash cloth in her hand while sleeping . Continue with routine stretchi ng and movement as able. Problem Code: M24.549; Problem Code Type: ICD-10; [address], [place], [address] , [facility] 3 06:06:35 History of skin and/or subcutan eous tissue disease 85030018973 9105 Active 201706/08/19 18 - Comments only - Lorna Martinez APRN - has seen podiatry . Monitor feet routinel y. Problem Code: Z87.2; Problem Code Type: ICD-10; [address], [place], [address] , [facility] 3 06:06:35 Disorder of tooth developm ent 304737924 Completed 201703/11/2018 Problem Code: K00.9; Problem Code Type: ICD-10; Not Available [facility] 3 03:53:19 Exposure to communic able disease Completed 202004/03/2021 Problem Code: Z20.828; Problem Code Type: ICD-10; Not Available [facility] 3 03:53:20 Localize d eruption of skin 645315365 Completed 202112/08/2021 Problem Code: R21; Problem Code Type: ICD-10; Not Available [facility] 3 03:53:20 Disorder of skin appendag e 638834036 Completed 202112/08/2021 Problem Code: L73.9; Problem Code Type: ICD-10; Not Available [facility] 3 03:53:20 Sepsis caused by Escheric hia coli 856371021 Active 202208/08/19 23 - Comments only - Lorna Martinez APRN - continue mgmt through [facility]. Blood drawn, may not be enough of sample but will send. If not enough, will need to come to office. drawn CBCD, CRP, CMP. 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 [address], [facility] [address] , [facility] 3 06:06:35 High enzyme level in serum 507782115 Active 2022 Problem Code: R74.8; Problem Code Type: ICD-10; [address], [place], [address] , [facility] 3 06:06:35 Anemia 255882304 Active 2022 Problem Code: D64.9; Problem Code Type: ICD-10; [address], [facility] [address] , [facility] 3 06:06:35 Vitamin D deficien cy 88577862 Active 2022 4.4.24- After complete s current HD vitamin D she is to change to vitamin D 5000 IU once a day [address], [place], [address] , [facility] 4 07:57:05 Osteomye litis 76280121 Active 2022 Problem Code: M86.9; Problem Code Type: ICD-10; [address], [facility] [address] , [facility] 3 06:06:35 Congenit al deformit y of spine 559354182 Active 2022 Problem Code: Q67.5; Problem Code Type: ICD-10; [address], [facility] [address] , [facility] 3 06:06:35 Chronic osteomye litis with draining sinus 147247888 Active 2022 Problem Code: M86.48; Problem Code Type: ICD-10; [address], [facility] [address] , [facility] 3 06:06:35 Fever 864202829 Completed 202011/07/2021 Problem Code: R50.9; Problem Code Type: ICD-10; Not Available [facility] 3 03:53:22 Pain of toe of left foot 55155159455 9108 Completed 201603/02/2017 Problem Code: M79.675; Problem Code Type: ICD-10; Not Available [facility] 3 03:53:23 Tinea pedis 7587993 Completed 201607/17/2020 Problem Code: B35.3; Problem Code Type: ICD-10; Not Available [facility] 3 03:53:23 Device in situ 204620930 Completed 201609/02/2018 Problem Code: Z97.8; Problem Code Type: ICD-10; Not Available [facility] 3 03:53:24 Closed fracture of lower leg 620292758 Completed 201607/17/2020 Problem Code: S82.90xD ; Problem Code Type: ICD-10; Not Available [facility] 3 03:53:27 Pain of right wrist 60283186684 9100 Completed 202011/07/2021 Problem Code: M25.531; Problem Code Type: ICD-10; Not Available [facility] 3 03:53:27 Disorder of skin and/or subcutan eous tissue 76624050 Completed 201807/17/2020 Problem Code: L98.9; Problem Code Type: ICD-10; Not Available [facility] 3 03:53:28 Pain in right hip joint 39714635333 9102 Completed 202011/07/2021 Problem Code: M25.551; Problem Code Type: ICD-10; Not Available [facility] 3 03:53:30 Muscle pain 04031310 Completed 202011/07/2021 Problem Code: M79.10; Problem Code Type: ICD-10; Not Available [facility] 3 03:53:32 Pain in right lower limb 899657497 Completed 201607/17/2020 Problem Code: M79.604; Problem Code Type: ICD-10; Not Available [facility] 3 03:53:32 Vaccine adverse reaction 935387223 Completed 201911/07/2021 Not Available [facility] 3 03:53:33 Chronic ulcer of foot 115844164 Completed 201707/17/2020 Problem Code: L97.529; Problem Code Type: ICD-10; Not Available [facility] 3 03:53:33 Accident al fall Completed 201807/17/2020 Not Available [facility] 3 03:53:34 Cellulit is of toe 78565097 Completed 201605/08/2017 Problem Code: L03.039; Problem Code Type: ICD-10; Not Available [facility] 3 03:53:35 Pre-surg isabel evaluati on Completed 202202/22/2023 Problem Code: Z01.818; Problem Code Type: ICD-10; Not Available [facility] 4 05:38:03 Intertri go 66233028 Active 2023 Martha Lopez RN [facility], [facility] 4 09:39:19 Thromboc ytosis 2248901 Active 2023 LORNA MARTINEZ APRN [address], [place], [address] , [facility] 4 21:17:57 Impacted cerumen 60725833 Active 2023 LORNA MARTINEZ APRN [address], [place], [address] , [facility] 4 10:33:20 Notes:*Problem Name: Oliguri a and anuria *Problem Status: active *Comments: *Problem Code: R34 *Problem Code Type: ICD-10 *Note Date: 03/04/2018 Problem Notes None recorded. Procedures Surgical History Date Name Laterality Status Provider Name and Address Organization Details Recorded Time 11/10/19 18 hysteroscopic endometrial laser ablation completed YOGESH BENDER CMA [facility] 12/25/2023 10:53:02 Imaging Results None recorded. Procedure Notes None recorded. Medical Equipment None Reported. Allergies Allergen ID Allergen Name Allergen Category Reaction Reaction Severity Criticality Documentation Date Start Date Code Code System Note Provider Name and Address Organization Details Recorded Time 52703 fluoxetin e hydrochlo ride medicatio n other mild Not available 03/06/20232018 79079 4 RxNorm unsur e Aller gyRea ction : 'unsu re'; Not Available [facility] 3 16:14:36 96659 doxycycli ne Not available rash severe Not available 03/06/20232022 3640 RxNorm Aller gyRea ction : 'Rash , Gastr ointe avelino l,'; Not Available [facility] 3 16:14:36 Medications Name Sig Start Date Stop Date Status Note LastModified by Organization Details LastModified Time Prescript ion - Renewal active DME Not Available Not Available Not Available acetamino phen 325 mg tablet Take 3 tablet by mouth every eight hours as needed active Per [facility] d/c summary 02/25/23 Not Available Not [...] eight hours as needed 07/23 completed Per [facility] d/c summary 02/25/23 Not Available Not [...] daily to affected area 07/23 completed Per [facility] d/c summary 02/25/23 Not Available Not [...] three times a day 09/27 completed last [facility] Infectio us note stated Bactrim DS 800-160m g 1 BID Not Available Not Available Not Available sodium chloride 0.9 % (flush) injection syringe Infuse 10ml into venous catheter 2 times a day 03/29 /2024 completed Per [facility] d/c summary 02/25/23 Not Available Not Available Not Available ceftriaxo ne 2 gram/50 mL in dextrose (iso-osm) intraveno us piggyback Infuse 2 gram intraven ously once a day Infuse 50ml (2g total) into a venous catheter daily 07/23 completed Per [facility] d/c summary 02/25/23 Not Available Not [...] 12 patch free hours) 07/23 completed Per [facility] d/c summary 02/25/23 Not Available Not [...] Updated DateTime 4 157.48 cm 22.6 kg/m2 24969.9 6 g 97.9 [degF] 97 % 97 % 110 /min 98 mm[Hg] 64 mm[Hg] YOGESH BENDER CMA [facility] 4 10:12:40 Social History None recorded. [...] DTaP, unspecified formulation 03/20/1998 completed Not Available [facility] 03/06/2023 03:50:45 meningococcal ACWY, unspecified formulation 09/15/2011 [...] quadrivalent, PF 02/17/2022 completed Not Available [facility] [...] 50 mcg/0.25mL dose 09/18/2020 completed Not Available [facility] 03/06/20 03:50:49 COVID-19, mRNA, LNP-S, PF, 100 mcg/0.5mL dose or 50 mcg/0.25mL dose 04/10/2021 completed Not Available [facility] 03/06/20 03:50:50 varicella 11/24/2006 completed Not Available [facility] 03:50:50 varicella 01/21/1999 completed Not Available [facility] 03:50:50 SARS-COV-2 (COVID-19) vaccine, UNSPECIFIED 09/25/2021 completed Not Available [facility] 03/06/2023 03:50:50 Hep B, unspecified formulation 1993 completed Not Available [facility] 03/06/2023 03:50:51 Hep B, unspecified formulation 1993 completed Not Available [facility] 03/06/2023 03:50:51 Hep B, unspecified formulation 03/07/1994 completed Not Available [facility] 03/06/2023 03:50:52 Hep A, unspecified formulation 06/22/2000 completed Not Available [facility] 03/06/2023 03:50:52 Hep A, unspecified formulation 11/07/1997 completed Not Available [facility] 03/06/2023 03:50:52 influenza, unspecified formulation 01/18/2016 completed Not Available [facility] 03/06/2023 03:50:52 polio, unspecified formulation 05/15/1994 completed Not Available [facility] 03/06/2023 03:50:52 polio, unspecified formulation 1993 completed Not Available [facility] 03/06/2023 03:50:52 polio, unspecified formulation 09/15/1994 completed Not Available [facility] 03/06/2023 03:50:53 polio, unspecified formulation 03/07/1994 completed Not Available [facility] 03/06/2023 03:50:53 Influenza, split virus, quadrivalent, PF 01/23/2023 completed Not Available [facility] 05/08/2023 05:31:40 Past Encounters Encounter ID Performer Location Encounter Start Date Encounter Closed Date Diagnosis/Indication Diagnosis SNOMED-CT Code Diagnosis ICD10 Code [id number] LORNA MARTINEZDALLAS [facility] [address] [place] [address] 11/10/2023 09:56:28 11/10/2023 12:18:07 Tetraplegia 15739068 G82.50 Osteomyelitis 25167360 M 86.9 High enzym e level in serum 499516105 R74.9 Vitamin D deficiency 347 08566 E55.9 Impacted cerumen 3513826 6 H61.23 Health Concerns Section Related Observation LastModified by Organization Detai ls LastModified Time None Recorded Concern Status LastModified by Organization Details LastModified Time None Recorded Payers Encounter Date Sequence Insurance Name Policy Number Policy Green Covered Member ID Green Member ID Guarantor Name 11/10/2023 1 [facility] (MEDICAID) Tana Cavazos [id number] Tana Cavazos Notes Date Note Type Note [...] caregivers stretch as she tolerates. -- update 7..24 Fluid intake is good. Urinating well, not [...] -- Has been working with surgeon at [facility] and ID at [facility]. -- Has elevated inflammatory markers that are gradually rising, specifically CRP and ESR -- Normal CK -- LFTs are elevated; initially alk phos was primarily elevated, but over the last few months her AST and ALT have been increasing. She had abdominal US done at [facility] 03/28/23 and this was normal. [...] has full guardianship of Kalyan. 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, [facility]. 11/10/2023 12:42:59 OBGyn Episode No OBEpisode recorded.
--- OUTSIDE RECORDS SUMMARY | 2024-01-12 21:12 | XMS_ITS | Encounter Summary ---
Author Organization [facility] [place] [address] Care Team Providers Care V Belt Curer Name Role Phone Lorna Bal APRN Primary Care Provider [phone] Reason for Visit * Reason Onset Date Comments Abnormal Lab 01/12/2024 Encounter Details Date Type Department Care Team (Late st Contact Info) Description 01/12/2024 Telephone [place] [id number] Yas Tracy RN Abnormal Lab Social History Tobacco Use Types Packs/Day Years Used Date Smoking Tobacco: Never Passive Smoke Exposure: Never Smokeless Tobacco: Never Comments:NO SMOKERS IN THE H OME Alcohol Use Standard Drinks/Week Comments No 0 (1 standard drink = 0.6 oz pur e alcohol) [facility] Utilities Answer Date Recorded In the past 12 months has [employer], gas, oil, or water company threatened [...] in a long-term (including now)? No 10/29/2023 DH IPV Inpatient [...] Telephone Encounter - Yas Tracy RN - 01/12/2024 3:20 PM EDT Infectious Disease/OPAT Program Telephone Note OPAT order: Pt currently not on any ABX Review/Pertinent information: Received the following message: Message: Jackelyn Mckay calling looking to discuss the following test results. Ordering Provider: Cesia Type of Test: CRP Lab Date of Test: 01/12/24 Where Was This Test Performed: Caller Name (If other than patient): Nely- Caregiver Relationship to Patient (if other than self): Paid Caregiver Callback number: [phone] F/u: Spoke with pt CG over the phone who reports CRP from 01/11 is 11 mg/dL from outside hospital, pending results being sent to [facility] Pt CG asking about any follow up needed Sent Dr. Callaway information about newest CRP and pt CG request for next steps documented in this encounter Plan of Treatment Upcoming Encounters Date Type Department Care Team (Late st Contact Info) Description 06/02/2024 12:30 PM EST Office Visit [place] [address] Hollie Ambriz MD [facility] [place] [address] documented as of this encounter Visit Diagnoses Not on filedocumented in this encounter Care Teams V Belt Curer Relationship Specialty Start Date End Date Lorna Bal APRN [address] [place] [address] PCP - General Family Medicine 05/27/18 documented as of this encounter
--- OUTSIDE RECORDS SUMMARY | 2024-01-12 21:12 | XMS_ITS | Data Portability ---
Author Organization [facility] Address [address] [place] [address] Assessment Encounter Date Assessment Date Assessment LastModified by Organization Details LastModified Time 04/24/2023 04/24/2023 The total time devoted to today's encounter, including both the zjpn-ru-hjml time with the patient and/or family/caregiv er and cng-bagt-mx-fa ce time I personally spent is 48 minutes. Not available 04/24/2023 09:38:15 11/10/2023 11/10/2023 The total time devoted to today's encounter, including both the mhpl-zx-igqx time with the patient and/or family/caregiv er and akc-xocp-um-fa ce time I personally spent is 35 minutes. Hospital admission: 7.3.204 Hospital discharge 7.9.24. Chronic director of critical care reach out 7.10.24 FU in office: 7.16.24 [...] panel (A+B+C), acute, serum 2022 023 [facility] (Registration ), [address] [place] [address] , [place], [address], 04/25/2023 11:53:33 CMP, serum or plasma 2022 023 [facility] (Registration ), [address] [place] [address] , [place], [address], 04/24/2023 14:57:58 CBC w/ auto diff 2022 023 [facility] (Registration ), [address] [place] [address] , [place], [address], 04/24/2023 14:43:55 C-reactiv e protein, quantitat brissa, serum or plasma [address] [facility] (Registration ), [address] [place] [address] [place], [address], 05/01/2023 11:12:20 ESR (erythroc yte sedimenta tion rate), blood [address] [facility] (Registration ), [address] [place] [address] , [place], [address], 05/01/2023 11:12:20 Referral orthopedi c surgeon referral - 2nd time sending for spasms to the right wrist/ thumb. 2023 024 [facility], [address], [place], [address], 08/24/2023 10:27:47 Procedures None recorded. Surgeries None recorded. Imaging None recorded. Medication Orders Ensure Active High Protein oral liquid 2022 023 [facility]- [address] [place], [address], 04/24/2023 09:17:52 Debrox 6.5 % ear drops 2023 024 [place] [id number] [address] [place], [address], 11/10/2023 10:38:18 cholecalc iferol (vitamin D3) 125 mcg (5,000 unit) tablet 2023 024 [place] [address] [address] [place], [address], 11/10/2023 11:06:20 baclofen 15 mg tablet 2023 024 [place] [address] [address] [place], [address], 11/10/2023 10:38:17 Debrox 6.5 % ear drops 2023 024 [place] [id number] [address] [place], [address], 12/25/2023 12:05:32 cholecalc iferol (vitamin D3) 125 mcg (5,000 unit) tablet 2023 024 [place] [address] [address] [place], [address], 12/25/2023 12:05:31 baclofen 15 mg tablet 2023 024 [place] [address] [address] [place], [address], 12/25/2023 12:05:30 Patient TargetsNo targets recorded. Patient Instructions Encounter Date Encounter Id Patient Instructions Last Modified By Organization Details Last Modified Time 04/24/2023 [id number] - Call Dr Augustin at [facility] - Call infectious disease at [facility] Work on improving bowels that we discussed Not available 04/24/2023 09:34:29 Reason for Referral Orthopedic Surgeon Referral for Tetraplegia 2nd time sending for spasms to the right wrist/ thumb. Referring Physician: Lorna Martinez [facility], Encounter Date: 07/24/2023 Orthopedic Surgeon Referral for Contracture of joint of hand hand specialist for right thumb pain and contracture of hand Referring Physician: Lorna Martinez [facility], Encounter Date: 07/28/2023 Results Created Date Observation Date Name Description Value Unit Range Abnormal Flag Note LastModifiedBy Organization Detail LastModifiedTime 04/03/20 23 04/03/2023 COMPL ETE BLOOD COUNT W/DIF F WBC 6.00 10_3/ uL 4.4-10 .8 normal Not Available [address] [place], [address] 04/03/2023 11:18:43 04/03/20 23 04/03/2023 COMPL ETE BLOOD COUNT W/DIF F RBC 3.44 10_6/ uL 3.93-5 .22 low Not Available [address] [place], [address] 04/03/2023 11:18:43 04/03/20 23 04/03/2023 COMPL ETE BLOOD COUNT W/DIF F HGB 9.6 g/dL 11.2-1 5.7 low Not Available [address] [place], [address] 04/03/2023 11:18:43 04/03/20 23 04/03/2023 COMPL ETE BLOOD COUNT W/DIF F HCT 29.6 % 36.0-4 6.0 low Not Available [address] [place], [address] 04/03/2023 11:18:43 04/03/20 23 04/03/2023 COMPL ETE BLOOD COUNT W/DIF F MCV 86 fL 80-95 normal Not Available Regina king [address] [place], [address] 04/03/2023 11:18:43 04/03/20 23 04/03/2023 COMPL ETE BLOOD COUNT W/DIF F MCH 27.9 pg 27.0-3 3.0 normal Not Available [address] [place], [address] 04/03/2023 11:18:43 04/03/20 23 04/03/2023 COMPL ETE BLOOD COUNT W/DIF F MCHC 32.4 % 32.0-3 6.0 normal Not Available [address] [place], [address] 04/03/2023 11:18:43 04/03/20 23 04/03/2023 COMPL ETE BLOOD COUNT W/DIF F RDW 14.7 % 11.7-1 4.6 high Not Available [address] [place], [address] 04/03/2023 11:18:43 04/03/20 23 04/03/2023 COMPL ETE BLOOD COUNT W/DIF F platelet count 524 10_3/ uL 130-40 0 high Not Available [address] [place], [address] 04/03/2023 11:18:43 04/03/20 23 04/03/2023 COMPL ETE BLOOD COUNT W/DIF F MPV 9.7 fL 8.0-11 .0 normal Not Available [address] [place], [address] 04/03/2023 11:18:43 04/03/20 23 04/03/2023 COMPL ETE BLOOD COUNT W/DIF F neutrophils % 71.9 Not Available [address] [place], [address] 04/03/2023 11:18:43 04/03/20 23 04/03/2023 COMPL ETE BLOOD COUNT W/DIF F lymphocytes % 20.8 Not Available [address] [place], [address] 04/03/2023 11:18:43 04/03/20 23 04/03/2023 COMPL ETE BLOOD COUNT W/DIF F monocytes % 5.0 Not Available [address] [place], [address] 04/03/2023 11:18:43 04/03/20 23 04/03/2023 COMPL ETE BLOOD COUNT W/DIF F eosinophils % 1.5 Not Available [address] [place], [address] 04/03/2023 11:18:43 04/03/20 23 04/03/2023 COMPL ETE BLOOD COUNT W/DIF F basophils % 0.5 Not Available [address] [place], [address] 04/03/2023 11:18:43 04/03/20 23 04/03/2023 COMPL ETE BLOOD COUNT W/DIF F immature grans % 0.3 Not Available [address] [place], [address] 04/03/2023 11:18:43 04/03/20 23 04/03/2023 COMPL ETE BLOOD COUNT W/DIF F nucleated RBC 0.0 % 0.0-0. 3 normal Not Available [address] [place], [address] 04/03/2023 11:18:43 04/03/20 23 04/03/2023 COMPL ETE BLOOD COUNT W/DIF F absolute neutrophil count 4.31 10_3/ uL 1.2-6. 7 normal Not Available [address] [place], [address] 04/03/2023 11:18:43 04/03/20 23 04/03/2023 COMPL ETE BLOOD COUNT W/DIF F absolute lymphocyte count 1.25 10_3/ uL 1.2-3. 4 normal Not Available [address] [place], [address] 04/03/2023 11:18:43 04/03/20 23 04/03/2023 COMPL ETE BLOOD COUNT W/DIF F absolute monocyte count 0.30 10_3/ uL 0.1-0. 8 normal Not Available [address] [place], [address] 04/03/2023 11:18:43 04/03/20 23 04/03/2023 COMPL ETE BLOOD COUNT W/DIF F absolute eosinophil count 0.09 10_3/ uL 0.0-0. 7 normal Not Available [address] [place], [address] 04/03/2023 11:18:43 04/03/20 23 04/03/2023 COMPL ETE BLOOD COUNT W/DIF F absolute basophil count 0.03 10_3/ uL 0.0-0. 2 normal Not Available [address] [place], [address] 04/03/2023 11:18:43 04/03/20 23 04/03/2023 LIVER PANEL total protein 7.8 g/dL 6.4-8. 2 normal Not Available [address] [place], [address] 04/03/2023 11:30:47 04/03/2004/03/2023 LIVER PANEL albumin 3.3 g/dL 3.4-5. 0 low Not Available [address] [place], [address] 04/03/2023 11:30:47 04/03/20 23 04/03/2023 LIVER PANEL bilirubin, total 0.3 mg/dL 0.2-1. 0 normal Not Available [address] [place], [address] 04/03/2023 11:30:47 04/03/2004/03/2023 LIVER PANEL alk phos 365 U/L 46-116 high Not Available [address] [place], [address] 04/03/2023 11:30:47 04/03/20 23 04/03/2023 LIVER PANEL AST 48 U/L 15-37 high Not Available Regina king [address] [place], [address] 04/03/2023 11:30:47 04/03/20 23 04/03/2023 LIVER PANEL ALT 89 U/L 14-59 high Not Available Regina king [address] [place], [address] 04/03/2023 11:30:47 04/03/20 23 04/03/2023 LIVER PANEL bilirubin, conjugated 0.1 mg/dL 0.0-0. 2 normal Not Available [address] [place], [address] 04/03/2023 11:30:47 04/03/20 23 04/03/2023 COMPR EHENS BRISSA METAB OLIC PANEL calcium 9.2 mg/dL 8.5-10 .1 normal Not Available [address] [place], [address] 04/03/2023 11:30:47 04/03/20 23 04/03/2023 COMPR EHENS BRISSA METAB OLIC PANEL glucose 144 mg/dL 74-106 high Not Available Regina king [address] [place], [address] 04/03/2023 11:30:47 04/03/20 23 04/03/2023 COMPR EHENS BRISSA METAB OLIC PANEL BUN 13 mg/dL 7-18 normal Not Available Regina king [address] [place], [address] 04/03/2023 11:30:47 04/03/20 23 04/03/2023 COMPR EHENS BRISSA METAB OLIC PANEL creatinine 0.4 mg/dL 0.55-1 .02 low Not Available [address] [place], [address] 04/03/2023 11:30:47 04/03/2004/03/2023 COMPR EHENS BRISSA METAB [...] young er-ag ed adult s. Not Available [address] [place], [address] 04/03/2023 11:30:47 04/03/20 23 04/03/2023 COMPR EHENS BRISSA METAB OLIC PANEL sodium 139 mmol/ L 136-14 5 normal Not Available [address] [place], [address] 04/03/2023 11:30:47 04/03/20 23 04/03/2023 COMPR EHENS BRISSA METAB OLIC PANEL potassium 3.8 mmol/ L 3.5-5. 1 normal Not Available [address] [place], [address] 04/03/2023 11:30:47 04/03/20 23 04/03/2023 COMPR EHENS BRISSA METAB OLIC PANEL chloride 102 mmol/ L 98-107 normal Not Available [address] [place], [address] 04/03/2023 11:30:47 04/03/20 23 04/03/2023 COMPR EHENS BRISSA METAB OLIC PANEL CO2 24.5 mmol/ L 21.0-3 2.0 normal Not Available [address] [place], [address] 04/03/2023 11:30:47 04/03/20 23 04/03/2023 COMPR EHENS BRISSA METAB OLIC PANEL anion gap 12.5 mmol/ L 3-11 high Not Available [address] [place], [address] 04/03/2023 11:30:47 04/03/20 23 04/03/2023 CREAT INE KINAS E creatine kinase 45 U/L 26-192 normal Not Available [address] [place], [address] 04/03/2023 11:30:48 04/03/2004/03/2023 C-ZONIA CTIVE PROTE IN C-reactive protein 6.28 mg/dL 0.0-0. 3 high Not Available [address] [place], [address] 04/03/2023 11:30:48 04/03/20 23 04/03/2023 ESR ESR 55 mm/HR 0-20 high Not Available [address] [place], [address] 04/03/2023 11:37:48 04/10/20 23 04/10/2023 COMPR EHENS BRISSA METAB OLIC PANEL calcium 9.3 mg/dL 8.5-10 .1 normal Not Available [address] [place], [address] 04/10/2023 12:25:49 04/10/20 23 04/10/2023 COMPR EHENS BRISSA METAB OLIC PANEL glucose 90 mg/dL 74-106 normal Not Available Regina king [address] [place], [address] 04/10/2023 12:25:49 04/10/20 23 04/10/2023 COMPR EHENS BRISSA METAB OLIC PANEL BUN 7 mg/dL 7-18 normal Not Available Regina king [address] [place], [address] 04/10/2023 12:25:49 04/10/20 23 04/10/2023 COMPR EHENS BRISSA METAB OLIC PANEL creatinine 0.3 mg/dL 0.55-1 .02 low Not Available [address] [place], [address] 04/10/2023 12:25:49 04/10/20 23 04/10/2023 COMPR EHENS [...] young er-ag ed adult s. Not Available [address] [place], [address] 04/10/2023 12:25:49 04/10/20 23 04/10/2023 COMPR EHENS BRISSA METAB OLIC PANEL total protein 7.5 g/dL 6.4-8. 2 normal Not Available [address] [place], [address] 04/10/2023 12:25:49 04/10/20 23 04/10/2023 COMPR EHENS BRISSA METAB OLIC PANEL albumin 3.0 g/dL 3.4-5. 0 low Not Available [address] [place], [address] 04/10/2023 12:25:49 04/10/20 23 04/10/2023 COMPR EHENS BRISSA METAB OLIC PANEL bilirubin, total 0.2 mg/dL 0.2-1. 0 normal Not Available [address] [place], [address] 04/10/2023 12:25:49 04/10/20 23 04/10/2023 COMPR EHENS BRISSA METAB OLIC PANEL alk phos 414 U/L 46-116 high Not Available [address] [place], [address] 04/10/2023 12:25:49 04/10/20 23 04/10/2023 COMPR EHENS BRISSA METAB OLIC PANEL sodium 138 mmol/ L 136-14 5 normal Not Available [address] [place], [address] 04/10/2023 12:25:49 04/10/20 23 04/10/2023 COMPR EHENS BRISSA METAB OLIC PANEL potassium 4.3 mmol/ L 3.5-5. 1 normal Not Available [address] [place], [address] 04/10/2023 12:25:49 04/10/20 23 04/10/2023 COMPR EHENS BRISSA METAB OLIC PANEL chloride 102 mmol/ L 98-107 normal Not Available [address] [place], [address] 04/10/2023 12:25:49 04/10/20 23 04/10/2023 COMPR EHENS BRISSA METAB OLIC PANEL CO2 24.7 mmol/ L 21.0-3 2.0 normal Not Available [address] [place], [address] 04/10/2023 12:25:49 04/10/20 23 04/10/2023 COMPR EHENS BRISSA METAB OLIC PANEL anion gap 11.3 mmol/ L 3-11 high Not Available [address] [place], [address] 04/10/2023 12:25:49 04/10/20 23 04/10/2023 COMPR EHENS BRISSA METAB OLIC PANEL AST 77 U/L 15-37 high Not Available Regina king [address] [place], [address] 04/10/2023 12:25:49 04/10/20 23 04/10/2023 COMPR EHENS BRISSA METAB OLIC PANEL ALT 137 U/L 14-59 high Not Available Regina king [address] [place], [address] 04/10/2023 12:25:49 04/10/20 23 04/10/2023 C-ZONIA CTIVE PROTE IN C-reactive protein 9.51 mg/dL 0.0-0. 3 high Not Available [address] [place], [address] 04/10/2023 12:25:50 04/10/20 23 04/10/2023 C-ZONIA CTIVE PROTE IN C-reactive protein 9.51 mg/dL 0.0-0. 3 high Not Available [address] [place], [address] 04/12/2023 01:17:45 04/24/20 23 04/24/2023 ESR ESR 53 mm/HR 0-20 high Not Available [address] [place], [address] 04/24/2023 14:34:51 04/24/20 23 04/24/2023 COMPL ETE BLOOD COUNT W/DIF F WBC 4.01 10_3/ uL 4.4-10 .8 low Not Available [address] [place], [address] 04/24/2023 14:43:55 04/24/20 23 04/24/2023 COMPL ETE BLOOD COUNT W/DIF F RBC 3.76 10_6/ uL 3.93-5 .22 low Not Available [address] [place], [address] 04/24/2023 14:43:55 04/24/20 23 04/24/2023 COMPL ETE BLOOD COUNT W/DIF F HGB 9.6 g/dL 11.2-1 5.7 low Not Available [address] [place], [address] 04/24/2023 14:43:55 04/24/20 23 04/24/2023 COMPL ETE BLOOD COUNT W/DIF F HCT 31.3 % 36.0-4 6.0 low Not Available [address] [place], [address] 04/24/2023 14:43:55 04/24/20 23 04/24/2023 COMPL ETE BLOOD COUNT W/DIF F MCV 83 fL 80-95 normal Not Available [address] [place], [address] 04/24/2023 14:43:55 04/24/20 23 04/24/2023 COMPL ETE BLOOD COUNT W/DIF F MCH 25.5 pg 27.0-3 3.0 low Not Available [address] [place], [address] 04/24/2023 14:43:55 04/24/20 23 04/24/2023 COMPL ETE BLOOD COUNT W/DIF F MCHC 30.7 % 32.0-3 6.0 low Not Available [address] [place], [address] 04/24/2023 14:43:55 04/24/20 23 04/24/2023 COMPL ETE BLOOD COUNT W/DIF F RDW 16.9 % 11.7-1 4.6 high Not Available [address] [place], [address] 04/24/2023 14:43:55 04/24/20 23 04/24/2023 COMPL ETE BLOOD COUNT W/DIF F platelet count 423 10_3/ uL 130-40 0 high Not Available [address] [place], [address] 04/24/2023 14:43:55 04/24/20 23 04/24/2023 COMPL ETE BLOOD COUNT W/DIF F MPV 9.9 fL 8.0-11 .0 normal Not Available [address] [place], [address] 04/24/2023 14:43:55 04/24/20 23 04/24/2023 COMPL ETE BLOOD COUNT W/DIF F neutrophils % 66.4 Not Available [facility] [address] [place] [address] [place], [address] 04/24/2023 14:43:55 04/24/20 23 04/24/2023 COMPL ETE BLOOD COUNT W/DIF F lymphocytes % 24.9 Not Available [address] [place], [address] 04/24/2023 14:43:55 04/24/20 23 04/24/2023 COMPL ETE BLOOD COUNT W/DIF F monocytes % 6.5 Not Available [address] [place], [address] 04/24/2023 14:43:55 04/24/20 23 04/24/2023 COMPL ETE BLOOD COUNT W/DIF F eosinophils % 1.5 Not Available [address] [place], [address] 04/24/2023 14:43:55 04/24/20 23 04/24/2023 COMPL ETE BLOOD COUNT W/DIF F basophils % 0.7 Not Available [address] [place], [address] 04/24/2023 14:43:55 04/24/20 23 04/24/2023 COMPL ETE BLOOD COUNT W/DIF F immature grans % 0.0 Not Available [address] [place], [address] 04/24/2023 14:43:55 04/24/20 23 04/24/2023 COMPL ETE BLOOD COUNT W/DIF F nucleated RBC 0.0 % 0.0-0. 3 normal Not Available [address] [place], [address] 04/24/2023 14:43:55 04/24/20 23 04/24/2023 COMPL ETE BLOOD COUNT W/DIF F absolute neutrophil count 2.66 10_3/ uL 1.2-6. 7 normal Not Available [address] [place], [address] 04/24/2023 14:43:55 04/24/20 23 04/24/2023 COMPL ETE BLOOD COUNT W/DIF F absolute lymphocyte count 1.00 10_3/ uL 1.2-3. 4 low Not Available [address] [place], [address] 04/24/2023 14:43:55 04/24/20 23 04/24/2023 COMPL ETE BLOOD COUNT W/DIF F absolute monocyte count 0.26 10_3/ uL 0.1-0. 8 normal Not Available [address] [place], [address] 04/24/2023 14:43:55 04/24/20 23 04/24/2023 COMPL ETE BLOOD COUNT W/DIF F absolute eosinophil count 0.06 10_3/ uL 0.0-0. 7 normal Not Available [address] [place], [address] 04/24/2023 14:43:55 04/24/20 23 04/24/2023 COMPL ETE BLOOD COUNT W/DIF F absolute basophil count 0.03 10_3/ uL 0.0-0. 2 normal Not Available [address] [place], [address] 04/24/2023 14:43:55 04/24/20 23 04/24/2023 COMPR EHENS BRISSA METAB OLIC PANEL calcium 9.5 mg/dL 8.5-10 .1 normal Not Available [address] [place], [address] 04/24/2023 14:57:58 04/24/20 23 04/24/2023 COMPR EHENS BRISSA METAB OLIC PANEL glucose 97 mg/dL 74-106 normal Not Available Regina [address] [place], [address] 04/24/2023 14:57:58 04/24/20 23 04/24/2023 COMPR EHENS BRISSA METAB OLIC PANEL BUN 11 mg/dL 7-18 normal Not Available Regina king [address] [place], [address] 04/24/2023 14:57:58 04/24/20 23 04/24/2023 COMPR EHENS BRISSA METAB OLIC PANEL creatinine 0.4 mg/dL 0.55-1 .02 low Not Available [address] [place], [address] 04/24/2023 14:57:58 04/24/20 23 04/24/2023 COMPR EHENS [...] young er-ag ed adult s. Not Available [address] [place], [address] 04/24/2023 14:57:58 04/24/20 23 04/24/2023 COMPR EHENS BRISSA METAB OLIC PANEL total protein 8.7 g/dL 6.4-8. 2 high Not Available [address] [place], [address] 04/24/2023 14:57:58 04/24/20 23 04/24/2023 COMPR EHENS BRISSA METAB OLIC PANEL albumin 3.2 g/dL 3.4-5. 0 low Not Available [address] [place], [address] 04/24/2023 14:57:58 04/24/20 23 04/24/2023 COMPR EHENS BRISSA METAB OLIC PANEL bilirubin, total 0.1 mg/dL 0.2-1. 0 low Not Available [address] [place], [address] 04/24/2023 14:57:58 04/24/20 23 04/24/2023 COMPR EHENS BRISSA METAB OLIC PANEL alk phos 256 U/L 46-116 high Not Available [address] [place], [address] 04/24/2023 14:57:58 04/24/20 23 04/24/2023 COMPR EHENS BRISSA METAB OLIC PANEL sodium 140 mmol/ L 136-14 5 normal Not Available [address] [place], [address] 04/24/2023 14:57:58 04/24/20 23 04/24/2023 COMPR EHENS BRISSA METAB OLIC PANEL potassium 3.8 mmol/ L 3.5-5. 1 normal Not Available [address] [place], [address] 04/24/2023 14:57:58 04/24/20 23 04/24/2023 COMPR EHENS BRISAS METAB OLIC PANEL chloride 102 mmol/ L 98-107 normal Not Available [address] [place], [address] 04/24/2023 14:57:58 04/24/20 23 04/24/2023 COMPR EHENS BRISSA METAB OLIC PANEL CO2 27.8 mmol/ L 21.0-3 2.0 normal Not Available [address] [place], [address] 04/24/2023 14:57:58 04/24/20 23 04/24/2023 COMPR EHENS BRISSA METAB OLIC PANEL anion gap 10.2 mmol/ L 3-11 normal Not Available [address] [place], [address] 04/24/2023 14:57:58 04/24/20 23 04/24/2023 COMPR EHENS BRISSA METAB OLIC PANEL AST 30 U/L 15-37 normal Not Available Regina king [address] [place], [address] 04/24/2023 14:57:58 04/24/20 23 04/24/2023 COMPR EHENS BRISSA METAB OLIC PANEL ALT 34 U/L 14-59 normal Not Available Regina king [address] [place], [address] 04/24/2023 14:57:58 04/24/20 23 04/24/2023 C-ZONIA CTIVE PROTE IN C-reactive protein 5.46 mg/dL 0.0-0. 3 high Not Available [address] [place], [address] 04/24/2023 14:57:59 04/24/20 23 04/24/2023 ACUTE HEPAT ITIS PROFI LE hepatitis B surface Ag Negati ve negati ve Not Available [address] [place], [address] 04/25/2023 11:53:33 04/24/20 23 04/24/2023 ACUTE HEPAT ITIS PROFI LE hepatitis C Ab W rflx HCV PCR Negati ve negati ve Not Available [address] [place], [address] 04/25/2023 11:53:33 04/24/20 23 04/24/2023 ACUTE HEPAT ITIS PROFI LE hepatitis A antibody IgM Negati ve negati ve The resul ts of this assay can be false ly lower ed due to the consu mptio n of Bioti n. Not Available [address] [place], [address] 04/25/2023 11:53:33 04/24/20 23 04/24/2023 ACUTE HEPAT ITIS PROFI LE hepatitis B core antibody Negati ve negati ve Test perfo rmed or refer red by [facility] [address] [facility] [place] [address] Not Available [address] [place], [address] 04/25/2023 11:53:33 05/01/19 24 05/01/2023 fecal occul t blood , stool Occult Blood negati ve Not Available [address], [address], 05/01/2023 16:26:46 05/14/19 24 05/14/2023 COMPL ETE BLOOD COUNT W/DIF F WBC 3.61 10_3/ uL 4.4-10 .8 low Not Available [address] [place], [address] 05/14/2023 12:56:33 05/14/19 24 05/14/2023 COMPL ETE BLOOD COUNT W/DIF F RBC 4.26 10_6/ uL 3.93-5 .22 normal Not Available [address] [place], [address] 05/14/2023 12:56:33 05/14/19 24 05/14/2023 COMPL ETE BLOOD COUNT W/DIF F HGB 10.4 g/dL 11.2-1 5.7 low Not Available [address] [place], [address] 05/14/2023 12:56:33 05/14/19 24 05/14/2023 COMPL ETE BLOOD COUNT W/DIF F HCT 34.3 % 36.0-4 6.0 low Not Available [address] [place], [address] 05/14/2023 12:56:33 05/14/19 24 05/14/2023 COMPL ETE BLOOD COUNT W/DIF F MCV 81 fL 80-95 normal Not Available [address] [place], [address] 05/14/2023 12:56:33 05/14/19 24 05/14/2023 COMPL ETE BLOOD COUNT W/DIF F MCH 24.4 pg 27.0-3 3.0 low Not Available [address] [place], [address] 05/14/2023 12:56:33 05/14/19 24 05/14/2023 COMPL ETE BLOOD COUNT W/DIF F MCHC 30.3 % 32.0-3 6.0 low Not Available [address] [place], [address] 05/14/2023 12:56:33 05/14/19 24 05/14/2023 COMPL ETE BLOOD COUNT W/DIF F RDW 17.8 % 11.7-1 4.6 high Not Available [address] [place], [address] 05/14/2023 12:56:33 05/14/19 24 05/14/2023 COMPL ETE BLOOD COUNT W/DIF F platelet count 351 10_3/ uL 130-40 0 normal Not Available [address] [place], [address] 05/14/2023 12:56:33 05/14/19 24 05/14/2023 COMPL ETE BLOOD COUNT W/DIF F MPV 9.6 fL 8.0-11 .0 normal Not Available [address] [place], [address] 05/14/2023 12:56:33 05/14/19 24 05/14/2023 COMPL ETE BLOOD COUNT W/DIF F neutrophils % 55.3 Not Available [address] [place], [address] 05/14/2023 12:56:33 05/14/19 24 05/14/2023 COMPL ETE BLOOD COUNT W/DIF F lymphocytes % 36.6 Not Available [address] [place], [address] 05/14/2023 12:56:33 05/14/19 24 05/14/2023 COMPL ETE BLOOD COUNT W/DIF F monocytes % 5.3 Not Available [address] [place], [address] 05/14/2023 12:56:33 05/14/19 24 05/14/2023 COMPL ETE BLOOD COUNT W/DIF F eosinophils % 1.9 Not Available [address] [place], [address] 05/14/2023 12:56:33 05/14/19 24 05/14/2023 COMPL ETE BLOOD COUNT W/DIF F basophils % 0.6 Not Available [address] [place], [address] 05/14/2023 12:56:33 05/14/19 24 05/14/2023 COMPL ETE BLOOD COUNT W/DIF F immature grans % 0.3 Not Available [address] [place], [address] 05/14/2023 12:56:33 05/14/19 24 05/14/2023 COMPL ETE BLOOD COUNT W/DIF F nucleated RBC 0.0 % 0.0-0. 3 normal Not Available [address] [place], [address] 05/14/2023 12:56:33 05/14/19 24 05/14/2023 COMPL ETE BLOOD COUNT W/DIF F absolute neutrophil count 2.00 10_3/ uL 1.2-6. 7 normal Not Available [address] [place], [address] 05/14/2023 12:56:33 05/14/19 24 05/14/2023 COMPL ETE BLOOD COUNT W/DIF F absolute lymphocyte count 1.32 10_3/ uL 1.2-3. 4 normal Not Available [address] [place], [address] 05/14/2023 12:56:33 05/14/19 24 05/14/2023 COMPL ETE BLOOD COUNT W/DIF F absolute monocyte count 0.19 10_3/ uL 0.1-0. 8 normal Not Available [address] [place], [address] 05/14/2023 12:56:33 05/14/19 24 05/14/2023 COMPL ETE BLOOD COUNT W/DIF F absolute eosinophil count 0.07 10_3/ uL 0.0-0. 7 normal Not Available [address] [place], [address] 05/14/2023 12:56:33 05/14/19 24 05/14/2023 COMPL ETE BLOOD COUNT W/DIF F absolute basophil count 0.02 10_3/ uL 0.0-0. 2 normal Not Available [address] [place], [address] 05/14/2023 12:56:33 05/14/19 24 05/14/2023 ESR ESR 67 mm/HR 0-20 high Not Available [address] [place], [address] 05/14/2023 12:56:35 05/14/19 24 05/14/2023 COMPR EHENS BRISSA METAB OLIC PANEL calcium 9.4 mg/dL 8.5-10 .1 normal Not Available [address] [place], [address] 05/14/2023 13:06:39 05/14/19 24 05/14/2023 COMPR EHENS BRISSA METAB OLIC PANEL glucose 90 mg/dL 74-106 normal Not Available Regina king [address] [place], [address] 05/14/2023 13:06:39 05/14/19 24 05/14/2023 COMPR EHENS BRISSA METAB OLIC PANEL BUN 13 mg/dL 7-18 normal Not Available Regina king [address] [place], [address] 05/14/2023 13:06:39 05/14/19 24 05/14/2023 COMPR EHENS BRISSA METAB OLIC PANEL creatinine 0.4 mg/dL 0.55-1 .02 low Not Available [address] [place], [address] 05/14/2023 13:06:39 05/14/19 24 05/14/2023 COMPR EHENS [...] young er-ag ed adult s. Not Available [address] [place], [address] 05/14/2023 13:06:39 05/14/19 24 05/14/2023 COMPR EHENS BRISSA METAB OLIC PANEL total protein 7.8 g/dL 6.4-8. 2 normal Not Available [address] [place], [address] 05/14/2023 13:06:39 05/14/19 24 05/14/2023 COMPR EHENS BRISSA METAB OLIC PANEL albumin 3.3 g/dL 3.4-5. 0 low Not Available [address] [place], [address] 05/14/2023 13:06:39 05/14/19 24 05/14/2023 COMPR EHENS BRISSA METAB OLIC PANEL bilirubin, total 0.2 mg/dL 0.2-1. 0 normal Not Available [address] [place], [address] 05/14/2023 13:06:39 05/14/19 24 05/14/2023 COMPR EHENS BRISSA METAB OLIC PANEL alk phos 283 U/L 46-116 high Not Available [address] [place], [address] 05/14/2023 13:06:39 05/14/19 24 05/14/2023 COMPR EHENS BRISSA METAB OLIC PANEL sodium 140 mmol/ L 136-14 5 normal Not Available [address] [place], [address] 05/14/2023 13:06:39 05/14/19 24 05/14/2023 COMPR EHENS BRISSA METAB OLIC PANEL potassium 4.1 mmol/ L 3.5-5. 1 normal Not Available [address] [place], [address] 05/14/2023 13:06:39 05/14/19 24 05/14/2023 COMPR EHENS BRISSA METAB OLIC PANEL chloride 102 mmol/ L 98-107 normal Not Available [address] [place], [address] 05/14/2023 13:06:39 05/14/19 24 05/14/2023 COMPR EHENS BRISSA METAB OLIC PANEL CO2 27.4 mmol/ L 21.0-3 2.0 normal Not Available [address] [place], [address] 05/14/2023 13:06:39 05/14/19 24 05/14/2023 COMPR EHENS BRISSA METAB OLIC PANEL anion gap 10.6 mmol/ L 3-11 normal Not Available [address] [place], [address] 05/14/2023 13:06:39 05/14/19 24 05/14/2023 COMPR EHENS BRISSA METAB OLIC PANEL AST 35 U/L 15-37 normal Not Available Regina king [address] [place], [address] 05/14/2023 13:06:39 05/14/19 24 05/14/2023 COMPR EHENS BRISSA METAB OLIC PANEL ALT 64 U/L 14-59 high Not Available Regina king [address] [place], [address] 05/14/2023 13:06:39 05/14/19 24 05/14/2023 CREAT INE KINAS E creatine kinase 21 U/L 26-192 low Not Available Paula nunes [address] [place], [address] 05/14/2023 13:06:43 05/14/19 24 05/14/2023 C-ZONIA CTIVE PROTE IN C-reactive protein 3.60 mg/dL 0.0-0. 3 high Not Available [address] [place], [address] 05/14/2023 13:06:43 06/17/19 24 06/17/2023 COMPL ETE BLOOD COUNT W/DIF F WBC 4.17 10_3/ uL 4.4-10 .8 low Not Available [address] [place], [address] 06/17/2023 13:58:18 06/17/19 24 06/17/2023 COMPL ETE BLOOD COUNT W/DIF F RBC 4.90 10_6/ uL 3.93-5 .22 normal Not Available [address] [place], [address] 06/17/2023 13:58:18 06/17/19 24 06/17/2023 COMPL ETE BLOOD COUNT W/DIF F HGB 12.1 g/dL 11.2-1 5.7 normal Not Available [address] [place], [address] 06/17/2023 13:58:18 06/17/19 24 06/17/2023 COMPL ETE BLOOD COUNT W/DIF F HCT 38.4 % 36.0-4 6.0 normal Not Available [address] [place], [address] 06/17/2023 13:58:18 06/17/19 24 06/17/2023 COMPL ETE BLOOD COUNT W/DIF F MCV 78 fL 80-95 low Not Available Regina [address] [place], [address] 06/17/2023 13:58:18 06/17/19 24 06/17/2023 COMPL ETE BLOOD COUNT W/DIF F MCH 24.7 pg 27.0-3 3.0 low Not Available [address] [place], [address] 06/17/2023 13:58:18 06/17/19 24 06/17/2023 COMPL ETE BLOOD COUNT W/DIF F MCHC 31.5 % 32.0-3 6.0 low Not Available [address] [place], [address] 06/17/2023 13:58:18 06/17/19 24 06/17/2023 COMPL ETE BLOOD COUNT W/DIF F RDW 20.3 % 11.7-1 4.6 high Not Available [address] [place], [address] 06/17/2023 13:58:18 06/17/19 24 06/17/2023 COMPL ETE BLOOD COUNT W/DIF F platelet count 325 10_3/ uL 130-40 0 normal Not Available [address] [place], [address] 06/17/2023 13:58:18 06/17/19 24 06/17/2023 COMPL ETE BLOOD COUNT W/DIF F MPV 10.1 fL 8.0-11 .0 normal Not Available [address] [place], [address] 06/17/2023 13:58:18 06/17/19 24 06/17/2023 COMPL ETE BLOOD COUNT W/DIF F neutrophils % 58.2 Not Available [address] [place], [address] 06/17/2023 13:58:18 06/17/19 24 06/17/2023 COMPL ETE BLOOD COUNT W/DIF F lymphocytes % 32.1 Not Available [address] [place], [address] 06/17/2023 13:58:18 06/17/19 24 06/17/2023 COMPL ETE BLOOD COUNT W/DIF F monocytes % 7.4 Not Available [address] [place], [address] 06/17/2023 13:58:18 06/17/19 24 06/17/2023 COMPL ETE BLOOD COUNT W/DIF F eosinophils % 1.4 Not Available [address] [place], [address] 06/17/2023 13:58:18 06/17/19 24 06/17/2023 COMPL ETE BLOOD COUNT W/DIF F basophils % 0.7 Not Available [address] [place], [address] 06/17/2023 13:58:18 06/17/19 24 06/17/2023 COMPL ETE BLOOD COUNT W/DIF F immature grans % 0.2 Not Available [address] [place], [address] 06/17/2023 13:58:18 06/17/19 24 06/17/2023 COMPL ETE BLOOD COUNT W/DIF F nucleated RBC 0.0 % 0.0-0. 3 normal Not Available [address] [place], [address] 06/17/2023 13:58:18 06/17/19 24 06/17/2023 COMPL ETE BLOOD COUNT W/DIF F absolute neutrophil count 2.43 10_3/ uL 1.2-6. 7 normal Not Available [address] [place], [address] 06/17/2023 13:58:18 06/17/19 24 06/17/2023 COMPL ETE BLOOD COUNT W/DIF F absolute lymphocyte count 1.34 10_3/ uL 1.2-3. 4 normal Not Available [address] [place], [address] 06/17/2023 13:58:18 06/17/19 24 06/17/2023 COMPL ETE BLOOD COUNT W/DIF F absolute monocyte count 0.31 10_3/ uL 0.1-0. 8 normal Not Available [address] [place], [address] 06/17/2023 13:58:18 06/17/19 24 06/17/2023 COMPL ETE BLOOD COUNT W/DIF F absolute eosinophil count 0.06 10_3/ uL 0.0-0. 7 normal Not Available [address] [place], [address] 06/17/2023 13:58:18 06/17/19 24 06/17/2023 COMPL ETE BLOOD COUNT W/DIF F absolute basophil count 0.03 10_3/ uL 0.0-0. 2 normal Not Available [address] [place], [address] 06/17/2023 13:58:18 06/17/19 24 06/17/2023 COMPL ETE BLOOD COUNT W/DIF F diff comment RBC Morph Review ed Not Available [address] [place], [address] 06/17/2023 13:58:18 06/17/19 24 06/17/2023 COMPL ETE BLOOD COUNT W/DIF F RBC morphology See Below Not Available [address] [place], [address] 06/17/2023 13:58:18 06/17/19 24 06/17/2023 COMPL ETE BLOOD COUNT W/DIF F anisocytosis 1+ Not Available [address] [place], [address] 06/17/2023 13:58:18 06/17/19 24 06/17/2023 COMPL ETE BLOOD COUNT W/DIF F microcytosis 1+ Not Available [address] [place], [address] 06/17/2023 13:58:18 06/17/19 24 06/17/2023 COMPL ETE BLOOD COUNT W/DIF F poikilocytes 1+ STOMA TOCYT ES Not Available [address] [place], [address] 06/17/2023 13:58:18 07/01/19 24 07/01/2023 COMPR EHENS BRISSA METAB OLIC PANEL calcium 9.5 mg/dL 8.5-10 .1 normal Not Available [address] [place], [address] 07/01/2023 16:12:34 07/01/19 24 07/01/2023 COMPR EHENS BRISSA METAB OLIC PANEL glucose 102 mg/dL 74-106 normal Not Available Regina [address] [place], [address] 07/01/2023 16:12:34 07/01/19 24 07/01/2023 COMPR EHENS BRISSA METAB OLIC PANEL BUN 13 mg/dL 7-18 normal Not Available Regina [address] [place], [address] 07/01/2023 16:12:34 07/01/19 24 07/01/2023 COMPR EHENS BRISSA METAB OLIC PANEL creatinine 0.4 mg/dL 0.55-1 .02 low Not Available [address] [place], [address] 07/01/2023 16:12:34 07/01/19 24 07/01/2023 COMPR EHENS [...] young er-ag ed adult s. Not Available [address] [place], [address] 07/01/2023 16:12:34 07/01/19 24 07/01/2023 COMPR EHENS BRISSA METAB OLIC PANEL total protein 7.9 g/dL 6.4-8. 2 normal Not Available [address] [place], [address] 07/01/2023 16:12:34 07/01/19 24 07/01/2023 COMPR EHENS BRISSA METAB OLIC PANEL albumin 3.6 g/dL 3.4-5. 0 normal Not Available [address] [place], [address] 07/01/2023 16:12:34 07/01/19 24 07/01/2023 COMPR EHENS BRISSA METAB OLIC PANEL bilirubin, total 0.1 mg/dL 0.2-1. 0 low Not Available [address] [place], [address] 07/01/2023 16:12:34 07/01/19 24 07/01/2023 COMPR EHENS BRISSA METAB OLIC PANEL alk phos 233 U/L 46-116 high Not Available [address] [place], [address] 07/01/2023 16:12:34 07/01/19 24 07/01/2023 COMPR EHENS BRISSA METAB OLIC PANEL sodium 142 mmol/ L 136-14 5 normal Not Available [address] [place], [address] 07/01/2023 16:12:34 07/01/19 24 07/01/2023 COMPR EHENS BRISSA METAB OLIC PANEL potassium 4.0 mmol/ L 3.5-5. 1 normal Not Available [address] [place], [address] 07/01/2023 16:12:34 07/01/19 24 07/01/2023 COMPR EHENS BRISSA METAB OLIC PANEL chloride 104 mmol/ L 98-107 normal Not Available [address] [place], [address] 07/01/2023 16:12:34 07/01/19 24 07/01/2023 COMPR EHENS BRISSA METAB OLIC PANEL CO2 26.4 mmol/ L 21.0-3 2.0 normal Not Available [address] [place], [address] 07/01/2023 16:12:34 07/01/19 24 07/01/2023 COMPR EHENS BRISSA METAB OLIC PANEL anion gap 11.6 mmol/ L 3-11 high Not Available [address] [place], [address] 07/01/2023 16:12:34 07/01/19 24 07/01/2023 COMPR EHENS BRISSA METAB OLIC PANEL AST 27 U/L 15-37 normal Not Available Regina [address] [place], [address] 07/01/2023 16:12:34 07/01/19 24 07/01/2023 COMPR EHENS BRISSA METAB OLIC PANEL ALT 70 U/L 14-59 high Not Available Regina [address] [place], [address] 07/01/2023 16:12:34 07/01/19 24 07/01/2023 IRON/ IBCT iron 42 ug/dL 50-170 low Not Available Regina [address] [place], [address] 07/01/2023 16:36:37 07/01/19 24 07/01/2023 IRON/ IBCT total iron binding capacity 403 ug/dL 250-45 0 normal Not Available [address] [place], [address] 07/01/2023 16:36:37 07/01/19 24 07/01/2023 IRON/ IBCT transferrin sat 10 % 15-50 low Not Available Paula nunes [address] [place], [address] 07/01/2023 16:36:37 07/01/19 24 07/02/2023 TISSU E [...] perfo rmed or refer red by [facility] [address] [place] [address] Not Available [address] [place], [address] 07/02/2023 11:39:19 07/01/19 24 07/02/2023 IGG IgG 1631 mg/dL 610-16 16 abnormal Test perfo rmed or refer red by [facility] [address] [place] [address] Not Available [address] [place], [address] 07/02/2023 15:55:58 07/01/19 24 07/02/2023 IGA IgA 284 mg/dL 85-499 Test perfo rmed or refer red by [facility] [address] [place] [address] Not Available [address] [place], [address] 07/02/2023 15:55:58 07/29/19 24 07/29/2023 VITAM IN D 25 TOTAL vitamin D 25 total 39.4 NG/mL 30-100 normal Refer ence Guide lines : Defic ient: <10 ng/ml Insuf ficie nt: 10-30 ng/ml Suffi cient : 30-10 0 ng/ml Toxic : >100 ng/ml Not Available [address] [place], [address] 07/29/2023 13:31:45 10/28/19 24 10/28/2023 COMPL ETE BLOOD COUNT W/DIF F WBC 7.24 10_3/ uL 4.4-10 .8 normal Not Available [address] [place], [address] 10/28/2023 13:08:06 10/28/19 24 10/28/2023 COMPL ETE BLOOD COUNT W/DIF F RBC 4.41 10_6/ uL 3.93-5 .22 normal Not Available [address] [place], [address] 10/28/2023 13:08:06 10/28/19 24 10/28/2023 COMPL ETE BLOOD COUNT W/DIF F HGB 12.5 g/dL 11.2-1 5.7 normal Not Available [address] [place], [address] 10/28/2023 13:08:06 10/28/19 24 10/28/2023 COMPL ETE BLOOD COUNT W/DIF F HCT 38.8 % 36.0-4 6.0 normal Not Available [address] [place], [address] 10/28/2023 13:08:06 10/28/19 24 10/28/2023 COMPL ETE BLOOD COUNT W/DIF F MCV 88 fL 80-95 normal Not Available [address] [place], [address] 10/28/2023 13:08:06 10/28/19 24 10/28/2023 COMPL ETE BLOOD COUNT W/DIF F MCH 28.3 pg 27.0-3 3.0 normal Not Available [address] [place], [address] 10/28/2023 13:08:06 10/28/19 24 10/28/2023 COMPL ETE BLOOD COUNT W/DIF F MCHC 32.2 % 32.0-3 6.0 normal Not Available [address] [place], [address] 10/28/2023 13:08:06 10/28/19 24 10/28/2023 COMPL ETE BLOOD COUNT W/DIF F RDW 14.3 % 11.7-1 4.6 normal Not Available [address] [place], [address] 10/28/2023 13:08:06 10/28/19 24 10/28/2023 COMPL ETE BLOOD COUNT W/DIF F platelet count 482 10_3/ uL 130-40 0 high Not Available [address] [place], [address] 10/28/2023 13:08:06 10/28/19 24 10/28/2023 COMPL ETE BLOOD COUNT W/DIF F MPV 9.8 fL 8.0-11 .0 normal Not Available [address] [place], [address] 10/28/2023 13:08:06 10/28/19 24 10/28/2023 COMPL ETE BLOOD COUNT W/DIF F neutrophils % 71.3 % Not Available [address] [place], [address] 10/28/2023 13:08:06 10/28/19 24 10/28/2023 COMPL ETE BLOOD COUNT W/DIF F lymphocytes % 21.0 % Not Available [address] [place], [address] 10/28/2023 13:08:06 10/28/19 24 10/28/2023 COMPL ETE BLOOD COUNT W/DIF F monocytes % 5.4 % Not Available [address] [place], [address] 10/28/2023 13:08:06 10/28/19 24 10/28/2023 COMPL ETE BLOOD COUNT W/DIF F eosinophils % 1.5 % Not Available [address] [place], [address] 10/28/2023 13:08:06 10/28/19 24 10/28/2023 COMPL ETE BLOOD COUNT W/DIF F basophils % 0.4 % Not Available [address] [place], [address] 10/28/2023 13:08:06 10/28/19 24 10/28/2023 COMPL ETE BLOOD COUNT W/DIF F immature grans % 0.4 % Not Available [address] [place], [address] 10/28/2023 13:08:06 10/28/19 24 10/28/2023 COMPL ETE BLOOD COUNT W/DIF F nucleated RBC 0.0 % 0.0-0. 3 normal Not Available [address] [place], [address] 10/28/2023 13:08:06 10/28/19 24 10/28/2023 COMPL ETE BLOOD COUNT W/DIF F absolute neutrophil count 5.16 10_3/ uL 1.2-6. 7 normal Not Available [address] [place], [address] 10/28/2023 13:08:06 10/28/19 24 10/28/2023 COMPL ETE BLOOD COUNT W/DIF F absolute lymphocyte count 1.52 10_3/ uL 1.2-3. 4 normal Not Available [address] [place], [address] 10/28/2023 13:08:06 10/28/19 24 10/28/2023 COMPL ETE BLOOD COUNT W/DIF F absolute monocyte count 0.39 10_3/ uL 0.1-0. 8 normal Not Available [address] [place], [address] 10/28/2023 13:08:06 10/28/19 24 10/28/2023 COMPL ETE BLOOD COUNT W/DIF F absolute eosinophil count 0.11 10_3/ uL 0.0-0. 7 normal Not Available [address] [place], [address] 10/28/2023 13:08:06 10/28/19 24 10/28/2023 COMPL ETE BLOOD COUNT W/DIF F absolute basophil count 0.03 10_3/ uL 0.0-0. 2 normal Not Available [address] [place], [address] 10/28/2023 13:08:06 10/28/19 24 10/28/2023 COMPR EHENS BRISSA METAB OLIC PANEL calcium 9.1 mg/dL 8.5-10 .1 normal Not Available [address] [place], [address] 10/28/2023 13:27:10 10/28/19 24 10/28/2023 COMPR EHENS BRISSA METAB OLIC PANEL glucose 98 mg/dL 74-106 normal Not Available Regina king [address] [place], [address] 10/28/2023 13:27:10 10/28/19 24 10/28/2023 COMPR EHENS BRISSA METAB OLIC PANEL BUN 8 mg/dL 7-18 normal Not Available Regina king [address] [place], [address] 10/28/2023 13:27:10 10/28/19 24 10/28/2023 COMPR EHENS BRISSA METAB OLIC PANEL creatinine 0.4 mg/dL 0.55-1 .02 low Not Available [address] [place], [address] 10/28/2023 13:27:10 10/28/19 24 10/28/2023 COMPR EHENS [...] young er-ag ed adult s. Not Available [address] [place], [address] 10/28/2023 13:27:10 10/28/19 24 10/28/2023 COMPR EHENS BRISSA METAB OLIC PANEL total protein 7.9 g/dL 6.4-8. 2 normal Not Available [address] [place], [address] 10/28/2023 13:27:10 10/28/19 24 10/28/2023 COMPR EHENS BRISSA METAB OLIC PANEL albumin 3.0 g/dL 3.4-5. 0 low Not Available [address] [place], [address] 10/28/2023 13:27:10 10/28/19 24 10/28/2023 COMPR EHENS BRISSA METAB OLIC PANEL bilirubin, total 0.27 mg/dL 0.2-1. 0 normal Not Available [address] [place], [address] 10/28/2023 13:27:10 10/28/19 24 10/28/2023 COMPR EHENS BRISSA METAB OLIC PANEL alk phos 263 U/L 46-116 high Not Available [address] [place], [address] 10/28/2023 13:27:10 10/28/19 24 10/28/2023 COMPR EHENS BRISSA METAB OLIC PANEL sodium 141 mmol/ L 136-14 5 normal Not Available [address] [place], [address] 10/28/2023 13:27:10 10/28/19 24 10/28/2023 COMPR EHENS BRISSA METAB OLIC PANEL potassium 4.3 mmol/ L 3.5-5. 1 normal Not Available [address] [place], [address] 10/28/2023 13:27:10 10/28/19 24 10/28/2023 COMPR EHENS BRISSA METAB OLIC PANEL chloride 103 mmol/ L 98-107 normal Not Available [address] [place], [address] 10/28/2023 13:27:10 10/28/19 24 10/28/2023 COMPR EHENS BRISSA METAB OLIC PANEL CO2 29.2 mmol/ L 21.0-3 2.0 normal Not Available [address] [place], [address] 10/28/2023 13:27:10 10/28/19 24 10/28/2023 COMPR EHENS BRISSA METAB OLIC PANEL anion gap 8.8 mmol/ L 3-11 normal Not Available [address] [place], [address] 10/28/2023 13:27:10 10/28/19 24 10/28/2023 COMPR EHENS BRISSA METAB OLIC PANEL AST 22 U/L 15-37 normal Not Available Regina king [address] [place], [address] 10/28/2023 13:27:10 10/28/19 24 10/28/2023 COMPR EHENS BRISSA METAB OLIC PANEL ALT 54 U/L 14-59 normal Not Available Regina king [address] [place], [address] 10/28/2023 13:27:10 10/28/19 24 10/28/2023 C-ZONIA CTIVE PROTE IN C-reactive protein 13.00 mg/dL <or=0. 5 high Not Available [facility] (Registration ) [address] [place] [address] [place], [address], 10/28/2023 13:27:11 11/09/19 24 11/09/2023 COMPL ETE BLOOD COUNT W/DIF F WBC 6.51 10_3/ uL 4.4-10 .8 normal Not Available [address] [place], [address] 11/09/2023 17:58:02 11/09/19 24 11/09/2023 COMPL ETE BLOOD COUNT W/DIF F RBC 4.22 10_6/ uL 3.93-5 .22 normal Not Available [address] [place], [address] 11/09/2023 17:58:02 11/09/19 24 11/09/2023 COMPL ETE BLOOD COUNT W/DIF F HGB 11.8 g/dL 11.2-1 5.7 normal Not Available [address] [place], [address] 11/09/2023 17:58:02 11/09/19 24 11/09/2023 COMPL ETE BLOOD COUNT W/DIF F HCT 36.7 % 36.0-4 6.0 normal Not Available [address] [place], [address] 11/09/2023 17:58:02 11/09/19 24 11/09/2023 COMPL ETE BLOOD COUNT W/DIF F MCV 87 fL 80-95 normal Not Available Regina king [address] [place], [address] 11/09/2023 17:58:02 11/09/19 24 11/09/2023 COMPL ETE BLOOD COUNT W/DIF F MCH 28.0 pg 27.0-3 3.0 normal Not Available [address] [place], [address] 11/09/2023 17:58:02 11/09/19 24 11/09/2023 COMPL ETE BLOOD COUNT W/DIF F MCHC 32.2 % 32.0-3 6.0 normal Not Available [address] [place], [address] 11/09/2023 17:58:02 11/09/19 24 11/09/2023 COMPL ETE BLOOD COUNT W/DIF F RDW 14.5 % 11.7-1 4.6 normal Not Available [address] [place], [address] 11/09/2023 17:58:02 11/09/19 24 11/09/2023 COMPL ETE BLOOD COUNT W/DIF F platelet count 430 10_3/ uL 130-40 0 high Not Available [address] [place], [address] 11/09/2023 17:58:02 11/09/19 24 11/09/2023 COMPL ETE BLOOD COUNT W/DIF F MPV 9.5 fL 8.0-11 .0 normal Not Available [address] [place], [address] 11/09/2023 17:58:02 11/09/19 24 11/09/2023 COMPL ETE BLOOD COUNT W/DIF F neutrophils % 60.3 % Not Available [address] [place], [address] 11/09/2023 17:58:02 11/09/19 24 11/09/2023 COMPL ETE BLOOD COUNT W/DIF F lymphocytes % 31.0 % Not Available [address] [place], [address] 11/09/2023 17:58:02 11/09/19 24 11/09/2023 COMPL ETE BLOOD COUNT W/DIF F monocytes % 5.7 % Not Available [address] [place], [address] 11/09/2023 17:58:02 11/09/19 24 11/09/2023 COMPL ETE BLOOD COUNT W/DIF F eosinophils % 2.2 % Not Available [address] [place], [address] 11/09/2023 17:58:02 11/09/19 24 11/09/2023 COMPL ETE BLOOD COUNT W/DIF F basophils % 0.6 % Not Available [address] [place], [address] 11/09/2023 17:58:02 11/09/19 24 11/09/2023 COMPL ETE BLOOD COUNT W/DIF F immature grans % 0.2 % Not Available [address] [place], [address] 11/09/2023 17:58:02 11/09/19 24 11/09/2023 COMPL ETE BLOOD COUNT W/DIF F nucleated RBC 0.0 % 0.0-0. 3 normal Not Available [address] [place], [address] 11/09/2023 17:58:02 11/09/19 24 11/09/2023 COMPL ETE BLOOD COUNT W/DIF F absolute neutrophil count 3.93 10_3/ uL 1.2-6. 7 normal Not Available [address] [place], [address] 11/09/2023 17:58:02 11/09/19 24 11/09/2023 COMPL ETE BLOOD COUNT W/DIF F absolute lymphocyte count 2.02 10_3/ uL 1.2-3. 4 normal Not Available [address] [place], [address] 11/09/2023 17:58:02 11/09/19 24 11/09/2023 COMPL ETE BLOOD COUNT W/DIF F absolute monocyte count 0.37 10_3/ uL 0.1-0. 8 normal Not Available [address] [place], [address] 11/09/2023 17:58:02 11/09/19 24 11/09/2023 COMPL ETE BLOOD COUNT W/DIF F absolute eosinophil count 0.14 10_3/ uL 0.0-0. 7 normal Not Available [address] [place], [address] 11/09/2023 17:58:02 11/09/19 24 11/09/2023 COMPL ETE BLOOD COUNT W/DIF F absolute basophil count 0.04 10_3/ uL 0.0-0. 2 normal Not Available [address] [place], [address] 11/09/2023 17:58:02 11/09/19 24 11/09/2023 COMPR EHENS BRISSA METAB OLIC PANEL calcium 9.1 mg/dL 8.5-10 .1 normal Not Available [address] [place], [address] 11/09/2023 18:20:06 11/09/19 24 11/09/2023 COMPR EHENS BRISSA METAB OLIC PANEL glucose 119 mg/dL 74-106 high Not Available Regina [address] [place], [address] 11/09/2023 18:20:06 11/09/19 24 11/09/2023 COMPR EHENS BRISSA METAB OLIC PANEL BUN 30 mg/dL 7-18 high Not Available Regina [address] [place], [address] 11/09/2023 18:20:06 11/09/19 24 11/09/2023 COMPR EHENS BRISSA METAB OLIC PANEL creatinine 1.2 mg/dL 0.55-1 .02 high Not Available [address] [place], [address] 11/09/2023 18:20:06 11/09/19 24 11/09/2023 COMPR EHENS [...] young er-ag ed adult s. Not Available [address] [place], [address] 11/09/2023 18:20:06 11/09/19 24 11/09/2023 COMPR EHENS BRISSA METAB OLIC PANEL total protein 7.4 g/dL 6.4-8. 2 normal Not Available [address] [place], [address] 11/09/2023 18:20:06 11/09/19 24 11/09/2023 COMPR EHENS BRISSA METAB OLIC PANEL albumin 3.3 g/dL 3.4-5. 0 low Not Available [address] [place], [address] 11/09/2023 18:20:06 11/09/19 24 11/09/2023 COMPR EHENS BRISSA METAB OLIC PANEL bilirubin, total 0.36 mg/dL 0.2-1. 0 normal Not Available [address] [place], [address] 11/09/2023 18:20:06 11/09/19 24 11/09/2023 COMPR EHENS BRISSA METAB OLIC PANEL alk phos 129 U/L 46-116 high Not Available [address] [place], [address] 11/09/2023 18:20:06 11/09/19 24 11/09/2023 COMPR EHENS BRISSA METAB OLIC PANEL sodium 128 mmol/ L 136-14 5 low Not Available [address] [place], [address] 11/09/2023 18:20:06 11/09/19 24 11/09/2023 COMPR EHENS BRISSA METAB OLIC PANEL potassium 4.3 mmol/ L 3.5-5. 1 normal Not Available [address] [place], [address] 11/09/2023 18:20:06 11/09/19 24 11/09/2023 COMPR EHENS BRISSA METAB OLIC PANEL chloride 92 mmol/ L 98-107 low Not Available [address] [place], [address] 11/09/2023 18:20:06 11/09/19 24 11/09/2023 COMPR EHENS BRISSA METAB OLIC PANEL CO2 26.0 mmol/ L 21.0-3 2.0 normal Not Available [address] [place], [address] 11/09/2023 18:20:06 11/09/19 24 11/09/2023 COMPR EHENS BRISSA METAB OLIC PANEL anion gap 10.0 mmol/ L 3-11 normal Not Available [address] [place], [address] 11/09/2023 18:20:06 11/09/19 24 11/09/2023 COMPR EHENS BRISSA METAB OLIC PANEL AST 29 U/L 15-37 normal Not Available [address] [place], [address] 11/09/2023 18:20:06 11/09/19 24 11/09/2023 COMPR EHENS BRISSA METAB OLIC PANEL ALT 40 U/L 14-59 normal Not Available [address] [place], [address] 11/09/2023 18:20:06 11/09/19 24 11/09/2023 C-ZONIA CTIVE PROTE IN C-reactive protein 3.21 mg/dL <or=0. 5 high Not Available [address] [place], [address] 11/09/2023 18:20:06 11/09/19 24 11/09/2023 C-ZONIA CTIVE PROTE IN C-reactive protein 3.21 mg/dL <or=0. 5 high MISLA BEL Not Available [address] [place], [address] 11/09/2023 19:28:31 11/09/19 24 11/09/2023 COMPR EHENS BRISSA METAB OLIC PANEL calcium 9.4 mg/dL 8.5-10 .1 normal --- 11/08 --- COR RECTE D REPOR T Corre cted Resul ts barfield d to and read back from BRITTNEY Gilbert RN (JESS [facility]) 11/08 at 1922 by LAB.L AUT Not Available [address] [place], [address] 11/09/2023 19:48:30 11/09/19 24 11/09/2023 COMPR EHENS BRISSA METAB OLIC PANEL glucose 114 mg/dL 74-106 high Not Available Regina king [address] [place], [address] 11/09/2023 19:48:30 11/09/19 24 11/09/2023 COMPR EHENS BRISSA METAB OLIC PANEL BUN 11 mg/dL 7-18 normal Not Available Regina king [address] [place] [place], [address] 11/09/2023 19:48:30 11/09/19 24 11/09/2023 COMPR EHENS BRISSA METAB OLIC PANEL creatinine 0.4 mg/dL 0.55-1 .02 low Not Available [address] [place], [address] 11/09/2023 19:48:30 11/09/19 24 11/09/2023 COMPR EHENS [...] young er-ag ed adult s. Not Available [address] [place], [address] 11/09/2023 19:48:30 11/09/19 11/09/2023 COMPR EHENS BRISSA METAB OLIC PANEL total protein 7.7 g/dL 6.4-8. 2 normal Not Available [address] [place], [address] 11/09/2023 19:48:30 11/09/19 24 11/09/2023 COMPR EHENS BRISSA METAB OLIC PANEL albumin 3.1 g/dL 3.4-5. 0 low Not Available [address] [place], [address] 11/09/2023 19:48:30 11/09/19 24 11/09/2023 COMPR EHENS BRISSA METAB OLIC PANEL bilirubin, total 0.12 mg/dL 0.2-1. 0 low Not Available [address] [place], [address] 11/09/2023 19:48:30 11/09/19 24 11/09/2023 COMPR EHENS BRISSA METAB OLIC PANEL alk phos 213 U/L 46-116 high Not Available [address] [place], [address] 11/09/2023 19:48:30 11/09/19 24 11/09/2023 COMPR EHENS BRISSA METAB OLIC PANEL sodium 140 mmol/ L 136-14 5 normal Not Available [address] [place], [address] 11/09/2023 19:48:30 11/09/19 24 11/09/2023 COMPR EHENS BRISSA METAB OLIC PANEL potassium 3.9 mmol/ L 3.5-5. 1 normal Not Available [address] [place], [address] 11/09/2023 19:48:30 11/09/19 24 11/09/2023 COMPR EHENS BRISSA METAB OLIC PANEL chloride 102 mmol/ L 98-107 normal Not Available [address] [place], [address] 11/09/2023 19:48:30 11/09/19 24 11/09/2023 COMPR EHENS BRISSA METAB OLIC PANEL CO2 26.8 mmol/ L 21.0-3 2.0 normal Not Available [address] [place], [address] 11/09/2023 19:48:30 11/09/19 24 11/09/2023 COMPR EHENS BRISSA METAB OLIC PANEL anion gap 11.2 mmol/ L 3-11 high Not Available [address] [place], [address] 11/09/2023 19:48:30 11/09/19 24 11/09/2023 COMPR EHENS BRISSA METAB OLIC PANEL AST 20 U/L 15-37 normal Not Available Regina king [address] [place], [address] 11/09/2023 19:48:30 11/09/19 24 11/09/2023 COMPR EHENS BRISSA METAB OLIC PANEL ALT 56 U/L 14-59 normal Not Available Regina king [address] [place], [address] 11/09/2023 19:48:30 11/09/19 24 11/09/2023 C-ZONIA CTIVE PROTE IN C-reactive protein 3.39 mg/dL <or=0. 5 high Not Available [address] [place], [address] 11/09/2023 19:48:30 11/16/19 24 11/16/2023 COMPL ETE BLOOD COUNT W/DIF F WBC 3.75 10_3/ uL 4.4-10 .8 low Not Available [address] [place], [address] 11/16/2023 13:50:58 11/16/19 24 11/16/2023 COMPL ETE BLOOD COUNT W/DIF F RBC 4.38 10_6/ uL 3.93-5 .22 normal Not Available [address] [place], [address] 11/16/2023 13:50:58 11/16/19 24 11/16/2023 COMPL ETE BLOOD COUNT W/DIF F HGB 12.2 g/dL 11.2-1 5.7 normal Not Available [address] [place], [address] 11/16/2023 13:50:58 11/16/19 24 11/16/2023 COMPL ETE BLOOD COUNT W/DIF F HCT 38.3 % 36.0-4 6.0 normal Not Available [address] [place], [address] 11/16/2023 13:50:58 11/16/19 24 11/16/2023 COMPL ETE BLOOD COUNT W/DIF F MCV 87 fL 80-95 normal Not Available Regina king [address] [place], [address] 11/16/2023 13:50:58 11/16/19 24 11/16/2023 COMPL ETE BLOOD COUNT W/DIF F MCH 27.9 pg 27.0-3 3.0 normal Not Available [address] [place], [address] 11/16/2023 13:50:58 11/16/19 24 11/16/2023 COMPL ETE BLOOD COUNT W/DIF F MCHC 31.9 % 32.0-3 6.0 low Not Available [address] [place], [address] 11/16/2023 13:50:58 11/16/19 24 11/16/2023 COMPL ETE BLOOD COUNT W/DIF F RDW 14.4 % 11.7-1 4.6 normal Not Available [address] [place], [address] 11/16/2023 13:50:58 11/16/19 24 11/16/2023 COMPL ETE BLOOD COUNT W/DIF F platelet count 319 10_3/ uL 130-40 0 normal Not Available [address] [place], [address] 11/16/2023 13:50:58 11/16/19 24 11/16/2023 COMPL ETE BLOOD COUNT W/DIF F MPV 10.1 fL 8.0-11 .0 normal Not Available [address] [place], [address] 11/16/2023 13:50:58 11/16/19 24 11/16/2023 COMPL ETE BLOOD COUNT W/DIF F neutrophils % 53.6 % Not Available [address] [place], [address] 11/16/2023 13:50:58 11/16/19 24 11/16/2023 COMPL ETE BLOOD COUNT W/DIF F lymphocytes % 34.9 % Not Available [address] [place], [address] 11/16/2023 13:50:58 11/16/19 24 11/16/2023 COMPL ETE BLOOD COUNT W/DIF F monocytes % 6.4 % Not Available [address] [place], [address] 11/16/2023 13:50:58 11/16/19 24 11/16/2023 COMPL ETE BLOOD COUNT W/DIF F eosinophils % 4.0 % Not Available [address] [place], [address] 11/16/2023 13:50:58 11/16/19 24 11/16/2023 COMPL ETE BLOOD COUNT W/DIF F basophils % 0.8 % Not Available [address] [place], [address] 11/16/2023 13:50:58 11/16/19 24 11/16/2023 COMPL ETE BLOOD COUNT W/DIF F immature grans % 0.3 % Not Available [address] [place], [address] 11/16/2023 13:50:58 11/16/19 24 11/16/2023 COMPL ETE BLOOD COUNT W/DIF F nucleated RBC 0.0 % 0.0-0. 3 normal Not Available [address] [place], [address] 11/16/2023 13:50:58 11/16/19 24 11/16/2023 COMPL ETE BLOOD COUNT W/DIF F absolute neutrophil count 2.01 10_3/ uL 1.2-6. 7 normal Not Available [address] [place], [address] 11/16/2023 13:50:58 11/16/19 24 11/16/2023 COMPL ETE BLOOD COUNT W/DIF F absolute lymphocyte count 1.31 10_3/ uL 1.2-3. 4 normal Not Available [address] [place], [address] 11/16/2023 13:50:58 11/16/19 24 11/16/2023 COMPL ETE BLOOD COUNT W/DIF F absolute monocyte count 0.24 10_3/ uL 0.1-0. 8 normal Not Available [address] [place], [address] 11/16/2023 13:50:58 11/16/19 24 11/16/2023 COMPL ETE BLOOD COUNT W/DIF F absolute eosinophil count 0.15 10_3/ uL 0.0-0. 7 normal Not Available [address] [place], [address] 11/16/2023 13:50:58 11/16/19 24 11/16/2023 COMPL ETE BLOOD COUNT W/DIF F absolute basophil count 0.03 10_3/ uL 0.0-0. 2 normal Not Available [address] [place], [address] 11/16/2023 13:50:58 11/16/19 24 11/16/2023 COMPR EHENS BRISSA METAB OLIC PANEL calcium 8.9 mg/dL 8.5-10 .1 normal Not Available [address] [place], [address] 11/16/2023 14:42:19 11/16/19 24 11/16/2023 COMPR EHENS BRISSA METAB OLIC PANEL glucose 108 mg/dL 74-106 high Not Available Regina king [address] [place], [address] 11/16/2023 14:42:19 11/16/19 24 11/16/2023 COMPR EHENS BRISSA METAB OLIC PANEL BUN 13 mg/dL 7-18 normal Not Available Regina king [address] [place], [address] 11/16/2023 14:42:19 11/16/19 24 11/16/2023 COMPR EHENS BRISSA METAB OLIC PANEL creatinine 0.4 mg/dL 0.55-1 .02 low Not Available [address] [place], [address] 11/16/2023 14:42:19 11/16/19 24 11/16/2023 COMPR EHENS [...] young er-ag ed adult s. Not Available [address] [place], [address] 11/16/2023 14:42:19 11/16/19 24 11/16/2023 COMPR EHENS BRISSA METAB OLIC PANEL total protein 7.5 g/dL 6.4-8. 2 normal Not Available [address] [place], [address] 11/16/2023 14:42:11/16/19 24 11/16/2023 COMPR EHENS BRISSA METAB OLIC PANEL albumin 3.1 g/dL 3.4-5. 0 low Not Available [address] [place], [address] 11/16/2023 14:42:19 11/16/19 24 11/16/2023 COMPR EHENS BRISSA METAB OLIC PANEL bilirubin, total 0.20 mg/dL 0.2-1. 0 normal Not Available [address] [place], [address] 11/16/2023 14:42:19 11/16/19 24 11/16/2023 COMPR EHENS BRISSA METAB OLIC PANEL alk phos 192 U/L 46-116 high Not Available [address] [place], [address] 11/16/2023 14:42:19 11/16/19 24 11/16/2023 COMPR EHENS BRISSA METAB OLIC PANEL sodium 144 mmol/ L 136-14 5 normal Not Available [address] [place], [address] 11/16/2023 14:42:19 11/16/19 24 11/16/2023 COMPR EHENS BRISSA METAB OLIC PANEL potassium 4.0 mmol/ L 3.5-5. 1 normal Not Available [address] [place], [address] 11/16/2023 14:42:19 11/16/19 24 11/16/2023 COMPR EHENS BRISSA METAB OLIC PANEL chloride 107 mmol/ L 98-107 normal Not Available [address] [place], [address] 11/16/2023 14:42:19 11/16/19 24 11/16/2023 COMPR EHENS BRISSA METAB OLIC PANEL CO2 28.9 mmol/ L 21.0-3 2.0 normal Not Available [address] [place], [address] 11/16/2023 14:42:19 11/16/19 24 11/16/2023 COMPR EHENS BRISSA METAB OLIC PANEL anion gap 8.1 mmol/ L 3-11 normal Not Available [address] [place], [address] 11/16/2023 14:42:19 11/16/19 24 11/16/2023 COMPR EHENS BRISSA METAB OLIC PANEL AST 38 U/L 15-37 high Not Available Regina king [address] [place], [address] 11/16/2023 14:42:19 11/16/19 24 11/16/2023 COMPR EHENS BRISSA METAB OLIC PANEL ALT 75 U/L 14-59 high Not Available Regina king [address] [place], [address] 11/16/2023 14:42:19 11/16/19 24 11/16/2023 C-ZONIA CTIVE PROTE IN C-reactive protein 1.57 mg/dL <or=0. 5 high Not Available [address] [place], [address] 11/16/2023 14:42:19 11/23/19 24 11/23/2023 COMPL ETE BLOOD COUNT W/DIF F WBC 4.40 10_3/ uL 4.4-10 .8 normal Not Available [address] [place], [address] 11/23/2023 13:45:24 11/23/19 24 11/23/2023 COMPL ETE BLOOD COUNT W/DIF F RBC 4.32 10_6/ uL 3.93-5 .22 normal Not Available [address] [place], [address] 11/23/2023 13:45:24 11/23/19 24 11/23/2023 COMPL ETE BLOOD COUNT W/DIF F HGB 12.2 g/dL 11.2-1 5.7 normal Not Available [address] [place], [address] 11/23/2023 13:45:24 11/23/19 24 11/23/2023 COMPL ETE BLOOD COUNT W/DIF F HCT 37.2 % 36.0-4 6.0 normal Not Available [address] [place], [address] 11/23/2023 13:45:24 11/23/19 24 11/23/2023 COMPL ETE BLOOD COUNT W/DIF F MCV 86 fL 80-95 normal Not Available [address] [place], [address] 11/23/2023 13:45:24 11/23/19 24 11/23/2023 COMPL ETE BLOOD COUNT W/DIF F MCH 28.2 pg 27.0-3 3.0 normal Not Available [address] [place], [address] 11/23/2023 13:45:24 11/23/19 24 11/23/2023 COMPL ETE BLOOD COUNT W/DIF F MCHC 32.8 % 32.0-3 6.0 normal Not Available [address] [place], [address] 11/23/2023 13:45:24 11/23/19 24 11/23/2023 COMPL ETE BLOOD COUNT W/DIF F RDW 15.2 % 11.7-1 4.6 high Not Available [address] [place], [address] 11/23/2023 13:45:24 11/23/19 24 11/23/2023 COMPL ETE BLOOD COUNT W/DIF F platelet count 269 10_3/ uL 130-40 0 normal Not Available [address] [place], [address] 11/23/2023 13:45:24 11/23/19 24 11/23/2023 COMPL ETE BLOOD COUNT W/DIF F MPV 10.2 fL 8.0-11 .0 normal Not Available [address] [place], [address] 11/23/2023 13:45:24 11/23/19 24 11/23/2023 COMPL ETE BLOOD COUNT W/DIF F neutrophils % 52.3 % Not Available [address] [place], [address] 11/23/2023 13:45:24 11/23/19 24 11/23/2023 COMPL ETE BLOOD COUNT W/DIF F lymphocytes % 35.7 % Not Available [address] [place], [address] 11/23/2023 13:45:24 11/23/19 24 11/23/2023 COMPL ETE BLOOD COUNT W/DIF F monocytes % 8.6 % Not Available [address] [place], [address] 11/23/2023 13:45:24 11/23/19 24 11/23/2023 COMPL ETE BLOOD COUNT W/DIF F eosinophils % 2.5 % Not Available [address] [place], [address] 11/23/2023 13:45:24 11/23/19 24 11/23/2023 COMPL ETE BLOOD COUNT W/DIF F basophils % 0.7 % Not Available [address] [place], [address] 11/23/2023 13:45:24 11/23/19 24 11/23/2023 COMPL ETE BLOOD COUNT W/DIF F immature grans % 0.2 % Not Available Paula nunes [address] [place], [address] 11/23/2023 13:45:24 11/23/19 24 11/23/2023 COMPL ETE BLOOD COUNT W/DIF F nucleated RBC 0.0 % 0.0-0. 3 normal Not Available [address] [place], [address] 11/23/2023 13:45:24 11/23/19 24 11/23/2023 COMPL ETE BLOOD COUNT W/DIF F absolute neutrophil count 2.30 10_3/ uL 1.2-6. 7 normal Not Available [address] [place], [address] 11/23/2023 13:45:24 11/23/19 24 11/23/2023 COMPL ETE BLOOD COUNT W/DIF F absolute lymphocyte count 1.57 10_3/ uL 1.2-3. 4 normal Not Available [address] [place], [address] 11/23/2023 13:45:24 11/23/19 24 11/23/2023 COMPL ETE BLOOD COUNT W/DIF F absolute monocyte count 0.38 10_3/ uL 0.1-0. 8 normal Not Available [address] [place], [address] 11/23/2023 13:45:24 11/23/19 24 11/23/2023 COMPL ETE BLOOD COUNT W/DIF F absolute eosinophil count 0.11 10_3/ uL 0.0-0. 7 normal Not Available [address] [place], [address] 11/23/2023 13:45:24 11/23/19 24 11/23/2023 COMPL ETE BLOOD COUNT W/DIF F absolute basophil count 0.03 10_3/ uL 0.0-0. 2 normal Not Available [address] [place], [address] 11/23/2023 13:45:24 11/23/19 24 11/23/2023 COMPR EHENS BRISSA METAB OLIC PANEL calcium 9.3 mg/dL 8.5-10 .1 normal Not Available [address] [place], [address] 11/23/2023 13:52:24 11/23/19 24 11/23/2023 COMPR EHENS BRISSA METAB OLIC PANEL glucose 90 mg/dL 74-106 normal Not Available Regina king [address] [place], [address] 11/23/2023 13:52:24 11/23/19 24 11/23/2023 COMPR EHENS BRISSA METAB OLIC PANEL BUN 16 mg/dL 7-18 normal Not Available Regina king [address] [place], [address] 11/23/2023 13:52:24 11/23/19 24 11/23/2023 COMPR EHENS BRISSA METAB OLIC PANEL creatinine 0.3 mg/dL 0.55-1 .02 low Not Available [address] [place], [address] 11/23/2023 13:52:24 11/23/19 24 11/23/2023 COMPR EHENS [...] young er-ag ed adult s. Not Available [address] [place], [address] 11/23/2023 13:52:24 11/23/19 24 11/23/2023 COMPR EHENS BRISSA METAB OLIC PANEL total protein 7.6 g/dL 6.4-8. 2 normal Not Available [address] [place], [address] 11/23/2023 13:52:24 11/23/19 24 11/23/2023 COMPR EHENS BRISSA METAB OLIC PANEL albumin 3.3 g/dL 3.4-5. 0 low Not Available [address] [place], [address] 11/23/2023 13:52:24 11/23/19 24 11/23/2023 COMPR EHENS BRISSA METAB OLIC PANEL bilirubin, total 0.22 mg/dL 0.2-1. 0 normal Not Available [address] [place], [address] 11/23/2023 13:52:24 11/23/19 24 11/23/2023 COMPR EHENS BRISSA METAB OLIC PANEL alk phos 201 U/L 46-116 high Not Available [address] [place], [address] 11/23/2023 13:52:24 11/23/19 24 11/23/2023 COMPR EHENS BRISSA METAB OLIC PANEL sodium 145 mmol/ L 136-14 5 normal Not Available [address] [place], [address] 11/23/2023 13:52:24 11/23/19 24 11/23/2023 COMPR EHENS BRISSA METAB OLIC PANEL potassium 3.8 mmol/ L 3.5-5. 1 normal Not Available [address] [place], [address] 11/23/2023 13:52:24 11/23/19 24 11/23/2023 COMPR EHENS BRISSA METAB OLIC PANEL chloride 107 mmol/ L 98-107 normal Not Available [address] [place], [address] 11/23/2023 13:52:24 11/23/19 24 11/23/2023 COMPR EHENS BRISSA METAB OLIC PANEL CO2 29.8 mmol/ L 21.0-3 2.0 normal Not Available [address] [place], [address] 11/23/2023 13:52:24 11/23/19 24 11/23/2023 COMPR EHENS BRISSA METAB OLIC PANEL anion gap 8.2 mmol/ L 3-11 normal Not Available [address] [place], [address] 11/23/2023 13:52:24 11/23/19 24 11/23/2023 COMPR EHENS BRISSA METAB OLIC PANEL AST 40 U/L 15-37 high Not Available Regina king [address] [place], [address] 11/23/2023 13:52:24 11/23/19 24 11/23/2023 COMPR EHENS BRISSA METAB OLIC PANEL ALT 83 U/L 14-59 high Not Available Regina king [address] [place], [address] 11/23/2023 13:52:24 11/23/19 24 11/23/2023 C-ZONIA CTIVE PROTE IN C-reactive protein 2.24 mg/dL <or=0. 5 high Not Available [address] [place], [address] 11/23/2023 13:52:24 12/04/19 24 12/04/2023 COMPL ETE BLOOD COUNT W/DIF F WBC 5.03 10_3/ uL 4.4-10 .8 normal Not Available [address] [place], [address] 12/04/2023 12:01:04 12/04/19 24 12/04/2023 COMPL ETE BLOOD COUNT W/DIF F RBC 4.08 10_6/ uL 3.93-5 .22 normal Not Available [address] [place], [address] 12/04/2023 12:01:04 12/04/19 24 12/04/2023 COMPL ETE BLOOD COUNT W/DIF F HGB 11.3 g/dL 11.2-1 5.7 normal Not Available [address] [place], [address] 12/04/2023 12:01:04 12/04/19 24 12/04/2023 COMPL ETE BLOOD COUNT W/DIF F HCT 35.8 % 36.0-4 6.0 low Not Available [address] [place], [address] 12/04/2023 12:01:04 12/04/19 24 12/04/2023 COMPL ETE BLOOD COUNT W/DIF F MCV 88 fL 80-95 normal Not Available Regina [address] [place], [address] 12/04/2023 12:01:04 12/04/19 24 12/04/2023 COMPL ETE BLOOD COUNT W/DIF F MCH 27.7 pg 27.0-3 3.0 normal Not Available [address] [place], [address] 12/04/2023 12:01:04 12/04/19 24 12/04/2023 COMPL ETE BLOOD COUNT W/DIF F MCHC 31.6 % 32.0-3 6.0 low Not Available [address] [place], [address] 12/04/2023 12:01:04 12/04/19 24 12/04/2023 COMPL ETE BLOOD COUNT W/DIF F RDW 16.2 % 11.7-1 4.6 high Not Available [address] [place], [address] 12/04/2023 12:01:04 12/04/19 24 12/04/2023 COMPL ETE BLOOD COUNT W/DIF F platelet count 265 10_3/ uL 130-40 0 normal Not Available [address] [place], [address] 12/04/2023 12:01:04 12/04/19 24 12/04/2023 COMPL ETE BLOOD COUNT W/DIF F MPV 10.6 fL 8.0-11 .0 normal Not Available [address] [place], [address] 12/04/2023 12:01:04 12/04/19 24 12/04/2023 COMPL ETE BLOOD COUNT W/DIF F neutrophils % 67.0 % Not Available Paula nunes [address] [place], [address] 12/04/2023 12:01:04 12/04/19 24 12/04/2023 COMPL ETE BLOOD COUNT W/DIF F lymphocytes % 25.4 % Not Available [address] [place], [address] 12/04/2023 12:01:04 12/04/19 24 12/04/2023 COMPL ETE BLOOD COUNT W/DIF F monocytes % 5.4 % Not Available [address] [place], [address] 12/04/2023 12:01:04 12/04/19 24 12/04/2023 COMPL ETE BLOOD COUNT W/DIF F eosinophils % 1.6 % Not Available [address] [place], [address] 12/04/2023 12:01:04 12/04/19 24 12/04/2023 COMPL ETE BLOOD COUNT W/DIF F basophils % 0.4 % Not Available [address] [place], [address] 12/04/2023 12:01:04 12/04/19 24 12/04/2023 COMPL ETE BLOOD COUNT W/DIF F immature grans % 0.2 % Not Available [address] [place], [address] 12/04/2023 12:01:04 12/04/19 24 12/04/2023 COMPL ETE BLOOD COUNT W/DIF F nucleated RBC 0.0 % 0.0-0. 3 normal Not Available [address] [place], [address] 12/04/2023 12:01:04 12/04/19 24 12/04/2023 COMPL ETE BLOOD COUNT W/DIF F absolute neutrophil count 3.37 10_3/ uL 1.2-6. 7 normal Not Available [address] [place], [address] 12/04/2023 12:01:04 12/04/19 24 12/04/2023 COMPL ETE BLOOD COUNT W/DIF F absolute lymphocyte count 1.28 10_3/ uL 1.2-3. 4 normal Not Available [address] [place], [address] 12/04/2023 12:01:04 12/04/19 24 12/04/2023 COMPL ETE BLOOD COUNT W/DIF F absolute monocyte count 0.27 10_3/ uL 0.1-0. 8 normal Not Available [address] [place], [address] 12/04/2023 12:01:04 12/04/19 24 12/04/2023 COMPL ETE BLOOD COUNT W/DIF F absolute eosinophil count 0.08 10_3/ uL 0.0-0. 7 normal Not Available [address] [place], [address] 12/04/2023 12:01:04 12/04/19 24 12/04/2023 COMPL ETE BLOOD COUNT W/DIF F absolute basophil count 0.02 10_3/ uL 0.0-0. 2 normal Not Available [address] [place], [address] 12/04/2023 12:01:04 12/04/19 24 12/04/2023 COMPR EHENS BRISSA METAB OLIC PANEL calcium 9.2 mg/dL 8.5-10 .1 normal Not Available [address] [place], [address] 12/04/2023 12:11:18 12/04/1912/04/2023 COMPR EHENS BRISSA METAB OLIC PANEL glucose 118 mg/dL 74-106 high Not Available Regina king [address] [place], [address] 12/04/2023 12:11:18 12/04/19 24 12/04/2023 COMPR EHENS BRISSA METAB OLIC PANEL BUN 9 mg/dL 7-18 normal Not Available Regina king [address] [place], [address] 12/04/2023 12:11:18 12/04/1912/04/2023 COMPR EHENS BRISSA METAB OLIC PANEL creatinine 0.4 mg/dL 0.55-1 .02 low Not Available [address] [place], [address] 12/04/2023 12:11:18 12/04/19 24 12/04/2023 COMPR EHENS [...] young er-ag ed adult s. Not Available [address] [place], [address] 12/04/2023 12:11:18 12/04/19 24 12/04/2023 COMPR EHENS BRISSA METAB OLIC PANEL total protein 7.0 g/dL 6.4-8. 2 normal Not Available [address] [place], [address] 12/04/2023 12:11:18 12/04/19 24 12/04/2023 COMPR EHENS BRISSA METAB OLIC PANEL albumin 3.1 g/dL 3.4-5. 0 low Not Available [address] [place], [address] 12/04/2023 12:11:18 12/04/19 24 12/04/2023 COMPR EHENS BRISSA METAB OLIC PANEL bilirubin, total 0.23 mg/dL 0.2-1. 0 normal Not Available [address] [place], [address] 12/04/2023 12:11:18 12/04/19 24 12/04/2023 COMPR EHENS BRISSA METAB OLIC PANEL alk phos 198 U/L 46-116 high Not Available [address] [place], [address] 12/04/2023 12:11:18 12/04/19 24 12/04/2023 COMPR EHENS BRISSA METAB OLIC PANEL sodium 143 mmol/ L 136-14 5 normal Not Available [address] [place], [address] 12/04/2023 12:11:18 12/04/19 24 12/04/2023 COMPR EHENS BRISSA METAB OLIC PANEL potassium 3.8 mmol/ L 3.5-5. 1 normal Not Available [address] [place], [address] 12/04/2023 12:11:18 12/04/19 24 12/04/2023 COMPR EHENS BRISSA METAB OLIC PANEL chloride 105 mmol/ L 98-107 normal Not Available [address] [place], [address] 12/04/2023 12:11:18 12/04/19 24 12/04/2023 COMPR EHENS BRISSA METAB OLIC PANEL CO2 28.3 mmol/ L 21.0-3 2.0 normal Not Available [address] [place], [address] 12/04/2023 12:11:18 12/04/19 24 12/04/2023 COMPR EHENS BRISSA METAB OLIC PANEL anion gap 9.7 mmol/ L 3-11 normal Not Available [address] [place], [address] 12/04/2023 12:11:18 12/04/19 24 12/04/2023 COMPR EHENS BRISSA METAB OLIC PANEL AST 35 U/L 15-37 normal Not Available Regina king [address] [place], [address] 12/04/2023 12:11:18 12/04/19 24 12/04/2023 COMPR EHENS BRISSA METAB OLIC PANEL ALT 68 U/L 14-59 high Not Available Regina king [address] [place], [address] 12/04/2023 12:11:18 12/04/19 24 12/04/2023 CRP, HIGH SENSI TIVIT Y CRP, high sensitivity >15.00 mg/L see note [facility] order ing C-Zonia ctive Prote in Refer ence Range : Low Risk: <1.0 mg/L [place] ge Risk: 1.0 - 3.0 mg/L High Risk: >3.0 mg/L Indet ermin ate*: >10.0 mg/L *May be an indic ation of anoth er sourc e of infla mmati on or infec tion Test perfo rmed or refer red by [facility] [address], [place] [address] Not Available [address] [place], [address] 12/07/2023 08:28:05 12/07/19 24 12/07/2023 COMPL ETE BLOOD COUNT W/DIF F WBC 5.23 10_3/ uL 4.4-10 .8 normal Not Available [address] [place], [address] 12/07/2023 16:13:54 12/07/19 24 12/07/2023 COMPL ETE BLOOD COUNT W/DIF F RBC 4.20 10_6/ uL 3.93-5 .22 normal Not Available [address] [place], [address] 12/07/2023 16:13:54 12/07/19 24 12/07/2023 COMPL ETE BLOOD COUNT W/DIF F HGB 11.6 g/dL 11.2-1 5.7 normal Not Available [address] [place], [address] 12/07/2023 16:13:54 12/07/19 24 12/07/2023 COMPL ETE BLOOD COUNT W/DIF F HCT 36.8 % 36.0-4 6.0 normal Not Available [address] [place], [address] 12/07/2023 16:13:54 12/07/19 24 12/07/2023 COMPL ETE BLOOD COUNT W/DIF F MCV 88 fL 80-95 normal Not Available Regina king [address] [place], [address] 12/07/2023 16:13:54 12/07/19 24 12/07/2023 COMPL ETE BLOOD COUNT W/DIF F MCH 27.6 pg 27.0-3 3.0 normal Not Available [address] [place], [address] 12/07/2023 16:13:54 12/07/19 24 12/07/2023 COMPL ETE BLOOD COUNT W/DIF F MCHC 31.5 % 32.0-3 6.0 low Not Available [address] [place], [address] 12/07/2023 16:13:54 12/07/19 24 12/07/2023 COMPL ETE BLOOD COUNT W/DIF F RDW 15.8 % 11.7-1 4.6 high Not Available [address] [place], [address] 12/07/2023 16:13:54 12/07/19 24 12/07/2023 COMPL ETE BLOOD COUNT W/DIF F platelet count 295 10_3/ uL 130-40 0 normal Not Available [address] [place], [address] 12/07/2023 16:13:54 12/07/19 24 12/07/2023 COMPL ETE BLOOD COUNT W/DIF F MPV 10.1 fL 8.0-11 .0 normal Not Available [address] [place], [address] 12/07/2023 16:13:54 12/07/19 24 12/07/2023 COMPL ETE BLOOD COUNT W/DIF F neutrophils % 54.7 % Not Available [address] [place], [address] 12/07/2023 16:13:54 12/07/19 24 12/07/2023 COMPL ETE BLOOD COUNT W/DIF F lymphocytes % 34.4 % Not Available [address] [place], [address] 12/07/2023 16:13:54 12/07/19 24 12/07/2023 COMPL ETE BLOOD COUNT W/DIF F monocytes % 7.6 % Not Available [address] [place], [address] 12/07/2023 16:13:54 12/07/19 24 12/07/2023 COMPL ETE BLOOD COUNT W/DIF F eosinophils % 2.7 % Not Available [address] [place], [address] 12/07/2023 16:13:54 12/07/19 24 12/07/2023 COMPL ETE BLOOD COUNT W/DIF F basophils % 0.4 % Not Available [address] [place], [address] 12/07/2023 16:13:54 12/07/19 24 12/07/2023 COMPL ETE BLOOD COUNT W/DIF F immature grans % 0.2 % Not Available [address] [place], [address] 12/07/2023 16:13:54 12/07/19 24 12/07/2023 COMPL ETE BLOOD COUNT W/DIF F nucleated RBC 0.0 % 0.0-0. 3 normal Not Available [address] [place], [address] 12/07/2023 16:13:54 12/07/19 24 12/07/2023 COMPL ETE BLOOD COUNT W/DIF F absolute neutrophil count 2.86 10_3/ uL 1.2-6. 7 normal Not Available [address] [place], [address] 12/07/2023 16:13:54 12/07/19 24 12/07/2023 COMPL ETE BLOOD COUNT W/DIF F absolute lymphocyte count 1.80 10_3/ uL 1.2-3. 4 normal Not Available [address] [place], [address] 12/07/2023 16:13:54 12/07/19 24 12/07/2023 COMPL ETE BLOOD COUNT W/DIF F absolute monocyte count 0.40 10_3/ uL 0.1-0. 8 normal Not Available [address] [place], [address] 12/07/2023 16:13:54 12/07/19 24 12/07/2023 COMPL ETE BLOOD COUNT W/DIF F absolute eosinophil count 0.14 10_3/ uL 0.0-0. 7 normal Not Available [address] [place], [address] 12/07/2023 16:13:54 12/07/19 24 12/07/2023 COMPL ETE BLOOD COUNT W/DIF F absolute basophil count 0.02 10_3/ uL 0.0-0. 2 normal Not Available [address] [place], [address] 12/07/2023 16:13:54 12/07/19 24 12/07/2023 COMPR EHENS BRISSA METAB OLIC PANEL calcium 8.9 mg/dL 8.5-10 .1 normal Not Available [address] [place], [address] 12/07/2023 18:29:14 12/07/19 24 12/07/2023 COMPR EHENS BRISSA METAB OLIC PANEL glucose 83 mg/dL 74-106 normal Not Available Regina [address] [place], [address] 12/07/2023 18:29:14 12/07/19 24 12/07/2023 COMPR EHENS BRISSA METAB OLIC PANEL BUN 15 mg/dL 7-18 normal Not Available Regina [address] [place] [facility] [place], [address] 12/07/2023 18:29:14 12/07/19 24 12/07/2023 COMPR EHENS BRISSA METAB OLIC PANEL creatinine 0.3 mg/dL 0.55-1 .02 low Not Available [address] [place], [address] 12/07/2023 18:29:14 12/07/19 24 12/07/2023 COMPR EHENS [...] young er-ag ed adult s. Not Available [address] [place], [address] 12/07/2023 18:29:14 12/07/19 24 12/07/2023 COMPR EHENS BRISSA METAB OLIC PANEL total protein 7.2 g/dL 6.4-8. 2 normal Not Available [address] [place], [address] 12/07/2023 18:29:14 12/07/19 24 12/07/2023 COMPR EHENS BRISSA METAB OLIC PANEL albumin 3.1 g/dL 3.4-5. 0 low Not Available [address] [place], [address] 12/07/2023 18:29:14 12/07/1912/07/2023 COMPR EHENS BRISSA METAB OLIC PANEL bilirubin, total 0.19 mg/dL 0.2-1. 0 low Not Available [address] [place], [address] 12/07/2023 18:29:14 12/07/19 24 12/07/2023 COMPR EHENS BRISSA METAB OLIC PANEL alk phos 201 U/L 46-116 high Not Available [address] [place], [address] 12/07/2023 18:29:14 12/07/19 24 12/07/2023 COMPR EHENS BRISSA METAB OLIC PANEL sodium 145 mmol/ L 136-14 5 normal Not Available [address] [place], [address] 12/07/2023 18:29:14 12/07/19 24 12/07/2023 COMPR EHENS BRISSA METAB OLIC PANEL potassium 3.8 mmol/ L 3.5-5. 1 normal Not Available [address] [place], [address] 12/07/2023 18:29:14 12/07/19 24 12/07/2023 COMPR EHENS BRISSA METAB OLIC PANEL chloride 104 mmol/ L 98-107 normal Not Available [address] [place], [address] 12/07/2023 18:29:14 12/07/19 24 12/07/2023 COMPR EHENS BRISSA METAB OLIC PANEL CO2 27.1 mmol/ L 21.0-3 2.0 normal Not Available [address] [place], [address] 12/07/2023 18:29:14 12/07/19 24 12/07/2023 COMPR EHENS BRISSA METAB OLIC PANEL anion gap 13.9 mmol/ L 3-11 high Not Available [address] [place], [address] 12/07/2023 18:29:14 12/07/19 24 12/07/2023 COMPR EHENS BRISSA METAB OLIC PANEL AST 31 U/L 15-37 normal Not Available Regina [address] [place], [address] 12/07/2023 18:29:14 12/07/19 24 12/07/2023 COMPR EHENS BRISSA METAB OLIC PANEL ALT 60 U/L 14-59 high Not Available Regina [address] [place], [address] 12/07/2023 18:29:14 12/07/19 24 12/07/2023 C-ZONIA CTIVE PROTE IN C-reactive protein 3.29 mg/dL <or=0. 5 high Not Available [address] [place], [address] 12/07/2023 18:29:15 12/29/19 24 12/29/2023 COMPL ETE BLOOD COUNT W/DIF F WBC 5.16 10_3/ uL 4.4-10 .8 normal Not Available [address] [place], [address] 12/29/2023 12:00:28 12/29/19 24 12/29/2023 COMPL ETE BLOOD COUNT W/DIF F RBC 4.79 10_6/ uL 3.93-5 .22 normal Not Available [address] [place], [address] 12/29/2023 12:00:28 12/29/19 24 12/29/2023 COMPL ETE BLOOD COUNT W/DIF F HGB 12.9 g/dL 11.2-1 5.7 normal Not Available [address] [place], [address] 12/29/2023 12:00:28 12/29/19 24 12/29/2023 COMPL ETE BLOOD COUNT W/DIF F HCT 41.1 % 36.0-4 6.0 normal Not Available [address] [place], [address] 12/29/2023 12:00:28 12/29/19 24 12/29/2023 COMPL ETE BLOOD COUNT W/DIF F MCV 86 fL 80-95 normal Not Available Regina [address] [place], [address] 12/29/2023 12:00:28 12/29/1912/29/2023 COMPL ETE BLOOD COUNT W/DIF F MCH 26.9 pg 27.0-3 3.0 low Not Available [address] [place], [address] 12/29/2023 12:00:28 12/29/19 24 12/29/2023 COMPL ETE BLOOD COUNT W/DIF F MCHC 31.4 % 32.0-3 6.0 low Not Available [address] [place], [address] 12/29/2023 12:00:28 12/29/19 24 12/29/2023 COMPL ETE BLOOD COUNT W/DIF F RDW 15.7 % 11.7-1 4.6 high Not Available [address] [place], [address] 12/29/2023 12:00:28 12/29/19 24 12/29/2023 COMPL ETE BLOOD COUNT W/DIF F platelet count 334 10_3/ uL 130-40 0 normal Not Available [address] [place], [address] 12/29/2023 12:00:28 12/29/19 24 12/29/2023 COMPL ETE BLOOD COUNT W/DIF F MPV 10.2 fL 8.0-11 .0 normal Not Available [address] [place], [address] 12/29/2023 12:00:28 12/29/19 24 12/29/2023 COMPL ETE BLOOD COUNT W/DIF F neutrophils % 52.0 % Not Available [address] [place], [address] 12/29/2023 12:00:28 12/29/19 24 12/29/2023 COMPL ETE BLOOD COUNT W/DIF F lymphocytes % 39.5 % Not Available [address] [place], [address] 12/29/2023 12:00:28 12/29/19 24 12/29/2023 COMPL ETE BLOOD COUNT W/DIF F monocytes % 5.8 % Not Available [address] [place], [address] 12/29/2023 12:00:28 12/29/19 24 12/29/2023 COMPL ETE BLOOD COUNT W/DIF F eosinophils % 1.7 % Not Available [address] [place], [address] 12/29/2023 12:00:28 12/29/19 24 12/29/2023 COMPL ETE BLOOD COUNT W/DIF F basophils % 0.8 % Not Available [address] [place], [address] 12/29/2023 12:00:28 12/29/19 24 12/29/2023 COMPL ETE BLOOD COUNT W/DIF F immature grans % 0.2 % Not Available [address] [place], [address] 12/29/2023 12:00:28 12/29/19 24 12/29/2023 COMPL ETE BLOOD COUNT W/DIF F nucleated RBC 0.0 % 0.0-0. 3 normal Not Available [address] [place], [address] 12/29/2023 12:00:28 12/29/19 24 12/29/2023 COMPL ETE BLOOD COUNT W/DIF F absolute neutrophil count 2.68 10_3/ uL 1.2-6. 7 normal Not Available [address] [place], [address] 12/29/2023 12:00:28 12/29/19 24 12/29/2023 COMPL ETE BLOOD COUNT W/DIF F absolute lymphocyte count 2.04 10_3/ uL 1.2-3. 4 normal Not Available [address] [place], [address] 12/29/2023 12:00:28 12/29/19 24 12/29/2023 COMPL ETE BLOOD COUNT W/DIF F absolute monocyte count 0.30 10_3/ uL 0.1-0. 8 normal Not Available [address] [place], [address] 12/29/2023 12:00:28 12/29/19 24 12/29/2023 COMPL ETE BLOOD COUNT W/DIF F absolute eosinophil count 0.09 10_3/ uL 0.0-0. 7 normal Not Available [address] [place], [address] 12/29/2023 12:00:28 12/29/19 24 12/29/2023 COMPL ETE BLOOD COUNT W/DIF F absolute basophil count 0.04 10_3/ uL 0.0-0. 2 normal Not Available [address] [place], [address] 12/29/2023 12:00:28 12/29/19 24 12/29/2023 ESR ESR 50 mm/HR 0-20 high Not Available [address] [place], [address] 12/29/2023 12:11:33 12/29/19 24 12/29/2023 COMPR EHENS BRISSA METAB OLIC PANEL calcium 9.6 mg/dL 8.5-10 .1 normal Not Available [address] [place], [address] 12/29/2023 12:40:39 12/29/19 24 12/29/2023 COMPR EHENS BRISSA METAB OLIC PANEL glucose 69 mg/dL 74-106 low Not Available Regina [address] [place], [address] 12/29/2023 12:40:39 12/29/19 24 12/29/2023 COMPR EHENS BRISSA METAB OLIC PANEL BUN 9 mg/dL 7-18 normal Not Available Regina king [address] [place], [address] 12/29/2023 12:40:39 12/29/19 24 12/29/2023 COMPR EHENS BRISSA METAB OLIC PANEL creatinine 0.4 mg/dL 0.55-1 .02 low Not Available [address] [place], [address] 12/29/2023 12:40:39 12/29/19 24 12/29/2023 COMPR EHENS [...] young er-ag ed adult s. Not Available [address] [place], [address] 12/29/2023 12:40:39 12/29/19 24 12/29/2023 COMPR EHENS BRISSA METAB OLIC PANEL total protein 7.9 g/dL 6.4-8. 2 normal Not Available [address] [place], [address] 12/29/2023 12:40:39 12/29/19 24 12/29/2023 COMPR EHENS BRISSA METAB OLIC PANEL albumin 3.6 g/dL 3.4-5. 0 normal Not Available [address] [place], [address] 12/29/2023 12:40:39 12/29/19 24 12/29/2023 COMPR EHENS BRISSA METAB OLIC PANEL bilirubin, total 0.15 mg/dL 0.2-1. 0 low Not Available [address] [place], [address] 12/29/2023 12:40:39 12/29/19 24 12/29/2023 COMPR EHENS BRISSA METAB OLIC PANEL alk phos 192 U/L 46-116 high Not Available [address] [place], [address] 12/29/2023 12:40:39 12/29/19 24 12/29/2023 COMPR EHENS BRISSA METAB OLIC PANEL sodium 141 mmol/ L 136-14 5 normal Not Available [address] [place], [address] 12/29/2023 12:40:39 12/29/19 24 12/29/2023 COMPR EHENS BRISSA METAB OLIC PANEL potassium 4.3 mmol/ L 3.5-5. 1 normal Not Available [address] [place], [address] 12/29/2023 12:40:39 12/29/19 24 12/29/2023 COMPR EHENS BRISSA METAB OLIC PANEL chloride 103 mmol/ L 98-107 normal Not Available [address] [place], [address] 12/29/2023 12:40:39 12/29/19 24 12/29/2023 COMPR EHENS BRISSA METAB OLIC PANEL CO2 27.5 mmol/ L 21.0-3 2.0 normal Not Available [address] [place], [address] 12/29/2023 12:40:39 12/29/19 24 12/29/2023 COMPR EHENS BRISSA METAB OLIC PANEL anion gap 10.5 mmol/ L 3-11 normal Not Available [address] [place], [address] 12/29/2023 12:40:39 12/29/19 24 12/29/2023 COMPR EHENS BRISSA METAB OLIC PANEL AST 27 U/L 15-37 normal Not Available [address] [place], [address] 12/29/2023 12:40:39 12/29/19 24 12/29/2023 COMPR EHENS BRISSA METAB OLIC PANEL ALT 57 U/L 14-59 normal Not Available Regina king [address] [place], [address] 12/29/2023 12:40:39 12/29/1912/29/2023 C-ZONIA CTIVE PROTE IN C-reactive protein 3.08 mg/dL <or=0. 5 high Not Available [address] [place], [address] 12/29/2023 12:40:40 01/05/2001/05/2024 ESR ESR 70 mm/HR 0-20 high Not Available [address] [place], [address] 01/05/2024 12:36:31 01/05/2001/05/2024 COMPL ETE BLOOD COUNT W/DIF F WBC 5.69 10_3/ uL 4.4-10 .8 normal Not Available [address] [place], [address] 01/05/2024 12:36:33 01/05/20 24 01/05/2024 COMPL ETE BLOOD COUNT W/DIF F RBC 4.70 10_6/ uL 3.93-5 .22 normal Not Available [address] [place], [address] 01/05/2024 12:36:33 01/05/20 24 01/05/2024 COMPL ETE BLOOD COUNT W/DIF F HGB 12.6 g/dL 11.2-1 5.7 normal Not Available [address] [place], [address] 01/05/2024 12:36:33 01/05/20 24 01/05/2024 COMPL ETE BLOOD COUNT W/DIF F HCT 39.9 % 36.0-4 6.0 normal Not Available [address] [place], [address] 01/05/2024 12:36:33 01/05/20 24 01/05/2024 COMPL ETE BLOOD COUNT W/DIF F MCV 85 fL 80-95 normal Not Available Regina king [address] [place], [address] 01/05/2024 12:36:33 01/05/20 24 01/05/2024 COMPL ETE BLOOD COUNT W/DIF F MCH 26.8 pg 27.0-3 3.0 low Not Available [address] [place], [address] 01/05/2024 12:36:33 01/05/20 24 01/05/2024 COMPL ETE BLOOD COUNT W/DIF F MCHC 31.6 % 32.0-3 6.0 low Not Available [address] [place], [address] 01/05/2024 12:36:33 01/05/20 24 01/05/2024 COMPL ETE BLOOD COUNT W/DIF F RDW 16.1 % 11.7-1 4.6 high Not Available [address] [place], [address] 01/05/2024 12:36:33 01/05/20 24 01/05/2024 COMPL ETE BLOOD COUNT W/DIF F platelet count 341 10_3/ uL 130-40 0 normal Not Available [address] [place], [address] 01/05/2024 12:36:33 01/05/20 24 01/05/2024 COMPL ETE BLOOD COUNT W/DIF F MPV 10.2 fL 8.0-11 .0 normal Not Available [address] [place], [address] 01/05/2024 12:36:33 01/05/20 24 01/05/2024 COMPL ETE BLOOD COUNT W/DIF F neutrophils % 63.8 % Not Available [address] [place], [address] 01/05/2024 12:36:33 01/05/20 24 01/05/2024 COMPL ETE BLOOD COUNT W/DIF F lymphocytes % 29.0 % Not Available [address] [place], [address] 01/05/2024 12:36:33 01/05/20 24 01/05/2024 COMPL ETE BLOOD COUNT W/DIF F monocytes % 5.4 % Not Available [address] [place], [address] 01/05/2024 12:36:33 01/05/20 24 01/05/2024 COMPL ETE BLOOD COUNT W/DIF F eosinophils % 1.1 % Not Available [address] [place], [address] 01/05/2024 12:36:33 01/05/20 24 01/05/2024 COMPL ETE BLOOD COUNT W/DIF F basophils % 0.5 % Not Available [address] [place], [address] 01/05/2024 12:36:33 01/05/20 24 01/05/2024 COMPL ETE BLOOD COUNT W/DIF F immature grans % 0.2 % Not Available [address] [place], [address] 01/05/2024 12:36:33 01/05/20 24 01/05/2024 COMPL ETE BLOOD COUNT W/DIF F nucleated RBC 0.0 % 0.0-0. 3 normal Not Available [address] [place], [address] 01/05/2024 12:36:33 01/05/20 24 01/05/2024 COMPL ETE BLOOD COUNT W/DIF F absolute neutrophil count 3.63 10_3/ uL 1.2-6. 7 normal Not Available [address] [place], [address] 01/05/2024 12:36:33 01/05/20 24 01/05/2024 COMPL ETE BLOOD COUNT W/DIF F absolute lymphocyte count 1.65 10_3/ uL 1.2-3. 4 normal Not Available [address] [place], [address] 01/05/2024 12:36:33 01/05/20 24 01/05/2024 COMPL ETE BLOOD COUNT W/DIF F absolute monocyte count 0.31 10_3/ uL 0.1-0. 8 normal Not Available [address] [place], [address] 01/05/2024 12:36:33 01/05/20 24 01/05/2024 COMPL ETE BLOOD COUNT W/DIF F absolute eosinophil count 0.06 10_3/ uL 0.0-0. 7 normal Not Available [address] [place], [address] 01/05/2024 12:36:33 01/05/20 24 01/05/2024 COMPL ETE BLOOD COUNT W/DIF F absolute basophil count 0.03 10_3/ uL 0.0-0. 2 normal Not Available [address] [place], [address] 01/05/2024 12:36:33 01/05/20 24 01/05/2024 COMPR EHENS BRISSA METAB OLIC PANEL calcium 9.4 mg/dL 8.5-10 .1 normal Not Available [address] [place], [address] 01/05/2024 13:20:41 01/05/20 24 01/05/2024 COMPR EHENS BRISSA METAB OLIC PANEL glucose 71 mg/dL 74-106 low Not Available [address] [place], [address] 01/05/2024 13:20:41 01/05/20 24 01/05/2024 COMPR EHENS BRISSA METAB OLIC PANEL BUN 10 mg/dL 7-18 normal Not Available [address] [place], [address] 01/05/2024 13:20:41 01/05/20 24 01/05/2024 COMPR EHENS BRISSA METAB OLIC PANEL creatinine 0.4 mg/dL 0.55-1 .02 low Not Available [address] [place], [address] 01/05/2024 13:20:41 01/05/20 24 01/05/2024 COMPR EHENS [...] young er-ag ed adult s. Not Available [address] [place], [address] 01/05/2024 13:20:41 01/05/20 24 01/05/2024 COMPR EHENS BRISSA METAB OLIC PANEL total protein 7.9 g/dL 6.4-8. 2 normal Not Available [address] [place], [address] 01/05/2024 13:20:41 01/05/20 24 01/05/2024 COMPR EHENS BRISSA METAB OLIC PANEL albumin 3.4 g/dL 3.4-5. 0 normal Not Available [address] [place], [address] 01/05/2024 13:20:41 01/05/20 24 01/05/2024 COMPR EHENS BRISSA METAB OLIC PANEL bilirubin, total 0.17 mg/dL 0.2-1. 0 low Not Available [address] [place], [address] 01/05/2024 13:20:41 01/05/20 24 01/05/2024 COMPR EHENS BRISSA METAB OLIC PANEL alk phos 239 U/L 46-116 high Not Available [address] [place], [address] 01/05/2024 13:20:41 01/05/20 24 01/05/2024 COMPR EHENS BRISSA METAB OLIC PANEL sodium 138 mmol/ L 136-14 5 normal Not Available [address] [place], [address] 01/05/2024 13:20:41 01/05/20 24 01/05/2024 COMPR EHENS BRISSA METAB OLIC PANEL potassium 4.4 mmol/ L 3.5-5. 1 normal Not Available [address] [place], [address] 01/05/2024 13:20:41 01/05/20 24 01/05/2024 COMPR EHENS BRISSA METAB OLIC PANEL chloride 101 mmol/ L 98-107 normal Not Available [address] [place], [address] 01/05/2024 13:20:41 01/05/20 24 01/05/2024 COMPR EHENS BRISSA METAB OLIC PANEL CO2 24.7 mmol/ L 21.0-3 2.0 normal Not Available [address] [place], [address] 01/05/2024 13:20:41 01/05/20 24 01/05/2024 COMPR EHENS BRISSA METAB OLIC PANEL anion gap 12.3 mmol/ L 3-11 high Not Available [address] [place], [address] 01/05/2024 13:20:41 01/05/20 24 01/05/2024 COMPR EHENS BRISSA METAB OLIC PANEL AST 35 U/L 15-37 normal Not Available Regina king [address] [place], [address] 01/05/2024 13:20:41 01/05/20 24 01/05/2024 COMPR EHENS BRISSA METAB OLIC PANEL ALT 65 U/L 14-59 high Not Available Regina king [address] [place], [address] 01/05/2024 13:20:41 01/05/20 24 01/05/2024 C-ZOINA CTIVE PROTE IN C-reactive protein 6.58 mg/dL <or=0. 5 high Not Available [address] [place], [address] 01/05/2024 13:20:42 01/12/20 24 01/12/2024 COMPR EHENS BRISSA METAB OLIC PANEL calcium 9.6 mg/dL 8.5-10 .1 normal Not Available [address] [place], [address] 01/12/2024 12:17:27 01/12/20 24 01/12/2024 COMPR EHENS BRISSA METAB OLIC PANEL glucose 93 mg/dL 74-106 normal Not Available Regina king [address] [place], [address] 01/12/2024 12:17:27 01/12/20 24 01/12/2024 COMPR EHENS BRISSA METAB OLIC PANEL BUN 13 mg/dL 7-18 normal Not Available Regina king [address] [place], [address] 01/12/2024 12:17:27 01/12/20 24 01/12/2024 COMPR EHENS BRISSA METAB OLIC PANEL creatinine 0.5 mg/dL 0.55-1 .02 low Not Available [address] [place], [address] 01/12/2024 12:17:27 01/12/20 24 01/12/2024 COMPR EHENS BRISSA METAB OLIC PANEL estimated GFR 129.32 mL/min /1.73M 2 The eGFR is calcu lated from [...] young er-ag ed adult s. Not Available [address] [place], [address] 01/12/2024 12:17:27 01/12/20 24 01/12/2024 COMPR EHENS BRISSA METAB OLIC PANEL total protein 7.9 g/dL 6.4-8. 2 normal Not Available [address] [place], [address] 01/12/2024 12:17:27 01/12/20 24 01/12/2024 COMPR EHENS BRISSA METAB OLIC PANEL albumin 3.3 g/dL 3.4-5. 0 low Not Available [address] [place], [address] 01/12/2024 12:17:27 01/12/20 24 01/12/2024 COMPR EHENS BRISSA METAB OLIC PANEL bilirubin, total 0.22 mg/dL 0.2-1. 0 normal Not Available [address] [place], [address] 01/12/2024 12:17:27 01/12/20 24 01/12/2024 COMPR EHENS BRISSA METAB OLIC PANEL alk phos 201 U/L 46-116 high Not Available [address] [place], [address] 01/12/2024 12:17:27 01/12/20 24 01/12/2024 COMPR EHENS BRISSA METAB OLIC PANEL sodium 138 mmol/ L 136-14 5 normal Not Available [address] [place], [address] 01/12/2024 12:17:27 01/12/20 24 01/12/2024 COMPR EHENS BIRSSA METAB OLIC PANEL potassium 4.4 mmol/ L 3.5-5. 1 normal Not Available [address] [place], [address] 01/12/2024 12:17:27 01/12/20 24 01/12/2024 COMPR EHENS BRISSA METAB OLIC PANEL chloride 101 mmol/ L 98-107 normal Not Available [address] [place], [address] 01/12/2024 12:17:27 01/12/20 24 01/12/2024 COMPR EHENS BRISSA METAB OLIC PANEL CO2 27.2 mmol/ L 21.0-3 2.0 normal Not Available [address] [place], [address] 01/12/2024 12:17:27 01/12/20 24 01/12/2024 COMPR EHENS BRISSA METAB OLIC PANEL anion gap 9.8 mmol/ L 3-11 normal Not Available [address] [place], [address] 01/12/2024 12:17:27 01/12/20 24 01/12/2024 COMPR EHENS BRISSA METAB OLIC PANEL AST 25 U/L 15-37 normal Not Available [address] [place], [address] 01/12/2024 12:17:27 01/12/20 24 01/12/2024 COMPR EHENS BRISSA METAB OLIC PANEL ALT 44 U/L 14-59 normal Not Available Regina king [address] [place], [address] 01/12/2024 12:17:27 01/12/20 24 01/12/2024 C-ZONIA CTIVE PROTE IN C-reactive protein 11.08 mg/dL <or=0. 5 high Not Available [address] [place], [address] 01/12/2024 12:17:28 01/12/20 24 01/12/2024 COMPL ETE BLOOD COUNT W/DIF F WBC 6.59 10_3/ uL 4.4-10 .8 normal Not Available [address] [place], [address] 01/12/2024 13:00:35 01/12/20 24 01/12/2024 COMPL ETE BLOOD COUNT W/DIF F RBC 4.70 10_6/ uL 3.93-5 .22 normal Not Available [address] [place], [address] 01/12/2024 13:00:35 01/12/20 24 01/12/2024 COMPL ETE BLOOD COUNT W/DIF F HGB 12.7 g/dL 11.2-1 5.7 normal Not Available [address] [place], [address] 01/12/2024 13:00:35 01/12/20 24 01/12/2024 COMPL ETE BLOOD COUNT W/DIF F HCT 39.8 % 36.0-4 6.0 normal Not Available [address] [place], [address] 01/12/2024 13:00:35 01/12/20 24 01/12/2024 COMPL ETE BLOOD COUNT W/DIF F MCV 85 fL 80-95 normal Not Available Regina king [address] [place], [address] 01/12/2024 13:00:35 01/12/20 24 01/12/2024 COMPL ETE BLOOD COUNT W/DIF F MCH 27.0 pg 27.0-3 3.0 normal Not Available [address] [place], [address] 01/12/2024 13:00:35 01/12/20 24 01/12/2024 COMPL ETE BLOOD COUNT W/DIF F MCHC 31.9 % 32.0-3 6.0 low Not Available [address] [place], [address] 01/12/2024 13:00:35 01/12/20 24 01/12/2024 COMPL ETE BLOOD COUNT W/DIF F RDW 16.5 % 11.7-1 4.6 high Not Available [address] [place], [address] 01/12/2024 13:00:35 01/12/20 24 01/12/2024 COMPL ETE BLOOD COUNT W/DIF F platelet count 10_3/ uL 130-40 0 Unabl e to repor t an accur ate plate let count due to plate let aggre gatio n; smear estim ate appea rs charlene l. Sugge st recol lecti on for accur ate plate let count . Not Available [address] [place], [address] 01/12/2024 13:00:35 01/12/20 24 01/12/2024 COMPL ETE BLOOD COUNT W/DIF F MPV fL 8.0-11 .0 Unabl e to calcu late MPV Not Available [address] [place], [address] 01/12/2024 13:00:35 01/12/20 24 01/12/2024 COMPL ETE BLOOD COUNT W/DIF F neutrophils % 69.4 % Not Available [address] [place], [address] 01/12/2024 13:00:35 01/12/20 24 01/12/2024 COMPL ETE BLOOD COUNT W/DIF F lymphocytes % 22.8 % Not Available [address] [place], [address] 01/12/2024 13:00:35 01/12/20 24 01/12/2024 COMPL ETE BLOOD COUNT W/DIF F monocytes % 6.1 % Not Available [address] [place], [address] 01/12/2024 13:00:35 01/12/20 24 01/12/2024 COMPL ETE BLOOD COUNT W/DIF F eosinophils % 0.9 % Not Available [address] [place], [address] 01/12/2024 13:00:35 01/12/20 24 01/12/2024 COMPL ETE BLOOD COUNT W/DIF F basophils % 0.5 % Not Available [address] [place], [address] 01/12/2024 13:00:35 01/12/20 24 01/12/2024 COMPL ETE BLOOD COUNT W/DIF F immature grans % 0.3 % Not Available [address] [place], [address] 01/12/2024 13:00:35 01/12/20 24 01/12/2024 COMPL ETE BLOOD COUNT W/DIF F nucleated RBC 0.0 % 0.0-0. 3 normal Not Available [address] [place], [address] 01/12/2024 13:00:35 01/12/20 24 01/12/2024 COMPL ETE BLOOD COUNT W/DIF F absolute neutrophil count 4.58 10_3/ uL 1.2-6. 7 normal Not Available [address] [place], [address] 01/12/2024 13:00:35 01/12/20 24 01/12/2024 COMPL ETE BLOOD COUNT W/DIF F absolute lymphocyte count 1.50 10_3/ uL 1.2-3. 4 normal Not Available [address] [place], [address] 01/12/2024 13:00:35 01/12/20 24 01/12/2024 COMPL ETE BLOOD COUNT W/DIF F absolute monocyte count 0.40 10_3/ uL 0.1-0. 8 normal Not Available [address] [place], [address] 01/12/2024 13:00:35 01/12/20 24 01/12/2024 COMPL ETE BLOOD COUNT W/DIF F absolute eosinophil count 0.06 10_3/ uL 0.0-0. 7 normal Not Available [address] [place], [address] 01/12/2024 13:00:35 01/12/20 24 01/12/2024 COMPL ETE BLOOD COUNT W/DIF F absolute basophil count 0.03 10_3/ uL 0.0-0. 2 normal Not Available [address] [facility] [place], [address] 01/12/2024 13:00:35 06/10/19 24 06/10/2023 x-ray imagi ng repor t Patien t Name: Tana Cavazos Unit #: [id number] Loc: DI Orderi ng Provid er: Caleb Lopez M.D. Accoun t #: [id number] Status : REG CLI Primar [...] t positi oning and scolio sis. 2. 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 Thank- you. [facility] [address], [place], [address] 06/11/2023 05:27:44 06/10/19 24 06/10/2023 x-ray imagi ng repor t Patien t Name: Tana Cavazos Unit #: [id number] Loc: DI Orderi ng Provid er: GILSON BARKSDALE Accindiana t #: [id number] Status : REG CLI Primar y Care [...] at the addres s above. Thank- you. 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 Overall stable and well cared for. 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 Order mesh slings, caregive r will contact [facility] to see if the ones needed are availabl e through them since not able to get through [facility]. Needs new TLSO for her back, [...] Problem Code Type: ICD-10; [address], [place], [address] , [facility] 3 06:06:34 Scoliosi s deformit y of spine 718666809 Active 2016 Problem Code: M41.9; Problem Code Type: ICD-10; [address], [place], [address] , [facility] 3 06:06:35 Spasm 23785269 Active 201603/02/20 17 - Comments only - Emelyn Easley MD - Patient will need on going physical therapy to help prevent worsenin g spastici ty and contract ures. 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 Problem Code: I47.1; Problem Code Type: ICD-10; [address], [place], [address] , [facility] 3 06:06:35 Traumati c or non-trau matic injury 747012856 Active 2016 Problem Code: T14.90; Problem Code Type: ICD-10; LORNA MARTINEZ APRN [address], [place], [address] , [facility] 3 06:06:35 Disorder of muscle 620583370 Active 201610/21/19 17 - Comments only - Emelyn Easley MD - This causes some constipa tion that has been improved by miralax. Problem Code: M62.9; Problem Code Type: ICD-10; LORNA MARTINEZ APRN [address], [place], [address] , [facility] 3 06:06:35 [...] ICD-10; LORNA MARTINEZ APRN [address], [place], [address] , [facility] 3 06:06:35 Impacted cerumen of bilatera l ears 79287506055 01540 Completed 201609/29/2016 09/16/19 17 - Comments only - Jade he SUPPLY COORDINATOR - Rev'd procedur e for cerumen [...] H61.23; Problem Code Type: ICD-10; Not Available [facility] 3 03:53:19 Impacted cerumen 71074029 Active 201612/04/19 17 - Comments only - Jade Harrisonqamar he SUPPLY COORDINATOR - - Cerumen not impacted today. [...] ICD-10; LORNA MARTINEZ APRN [address], [place], [address] , [facility] 3 06:06:35 Pre-surg isabel evaluati on Completed 201601/09/2017 12/27/19 17 - Comments only - Jade he SUPPLY COORDINATOR - - Pt presents for pre-op physical as she is having a DEXA scan on 12/30 at [facility] and they have requeste d that she has a physical within the last 30 days. There are no concerns raised by her aid who is with her, and no findings on exam that suggest she should not move forward with procedur e as schedule d. Problem Code: Z01.818; Problem Code Type: ICD-10; Not Available [facility] 3 03:53:19 Contract ure of joint of hand 12933159 Active 201606/08/19 18 - Comments only - Lorna Martinez APRN - continue wearing splint during the day. Wash cloth in her hand while sleeping . Continue with routine stretchi ng and movement as able. Problem Code: M24.549; Problem Code Type: ICD-10; [address], [place], [address] , [facility] 3 06:06:35 History of skin and/or subcutan eous tissue disease 44690807420 9105 Active 201706/08/19 18 - Comments only - Lorna Martinez APRN - has seen podiatry . Monitor feet routinel y. Problem Code: Z87.2; Problem Code Type: ICD-10; [address], [place], [address] , [facility] 3 06:06:35 Disorder of tooth developm ent 736832593 Completed 201703/11/2018 Problem Code: K00.9; Problem Code Type: ICD-10; Not Available [facility] 3 03:53:19 Exposure to communic able disease Completed 202004/03/2021 Problem Code: Z20.828; Problem Code Type: ICD-10; Not Available [facility] 3 03:53:20 Localize d eruption of skin 610410829 Completed 202112/08/2021 Problem Code: R21; Problem Code Type: ICD-10; Not Available [facility] 3 03:53:20 Disorder of skin appendag e 499807088 Completed 202112/08/2021 Problem Code: L73.9; Problem Code Type: ICD-10; Not Available [facility] 3 03:53:20 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 Blood drawn, may not be enough of sample but will send. If not enough, will need to come to office. drawn CBCD, CRP, CMP. 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 Active [address], [place] [address] , [facility] 3 06:06:35 High enzyme level in serum 179551272 Active 2022 Problem Code: R74.8; Problem Code Type: ICD-10; [address], [facility] [address] , [facility] 3 06:06:35 Anemia 392678157 Active 2022 Problem Code: D64.9; Problem Code Type: ICD-10; [address], [facility] [address] , [facility] 3 06:06:35 Vitamin D deficien cy 85803732 Active 2022 4.4.24- After complete s current HD vitamin D she is to change to vitamin D 5000 IU once a day khb. [address], [facility] [address] , [facility] 4 07:57:05 Osteomye litis 87412902 Active 2022 Problem Code: M86.9; Problem Code Type: ICD-10; [address], [facility] [address] , [facility] 3 06:06:35 Congenit al deformit y of spine 501244596 Active 2022 Problem Code: Q67.5; Problem Code Type: ICD-Kylie; [address] [address], [place], [address] , [facility] 3 06:06:35 Chronic osteomye litis with draining sinus 042930861 Active 2022 Problem Code: M86.48; Problem Code Type: ICD-10; LORNA MARTINEZ APRN [address], [place], [address] , [facility] 3 06:06:35 Fever 347507401 Completed 202011/07/2021 Problem Code: R50.9; Problem Code Type: ICD-10; Not Available [facility] 3 03:53:22 Pain of toe of left foot 90117859110 9108 Completed 201603/02/2017 Problem Code: M79.675; Problem Code Type: ICD-10; Not Available [facility] 3 03:53:23 Tinea pedis 7012197 Completed 201607/17/2020 Problem Code: B35.3; Problem Code Type: ICD-10; Not Available [facility] 3 03:53:23 Device in situ 686411942 Completed 201609/02/2018 Problem Code: Z97.8; Problem Code Type: ICD-10; Not Available [facility] 3 03:53:24 Closed fracture of lower leg 820815975 Completed 201607/17/2020 Problem Code: S82.90xD ; Problem Code Type: ICD-10; Not Available [facility] 3 03:53:27 Pain of right wrist 06531347345 9100 Completed 202011/07/2021 Problem Code: M25.531; Problem Code Type: ICD-10; Not Available [facility] 3 03:53:27 Disorder of skin and/or subcutan eous tissue 65129101 Completed 201807/17/2020 Problem Code: L98.9; Problem Code Type: ICD-10; Not Available [facility] 3 03:53:28 Pain in right hip joint 00162505087 9102 Completed 202011/07/2021 Problem Code: M25.551; Problem Code Type: ICD-10; Not Available [facility] 3 03:53:30 Muscle pain 70830763 Completed 202011/07/2021 Problem Code: M79.10; Problem Code Type: ICD-10; Not Available [facility] 3 03:53:32 Pain in right lower limb 532069619 Completed 201607/17/2020 Problem Code: M79.604; Problem Code Type: ICD-10; Not Available [facility] 3 03:53:32 Vaccine adverse reaction 675862274 Completed 201911/07/2021 Not Available [facility] 3 03:53:33 Chronic ulcer of foot 379446260 Completed 201707/17/2020 Problem Code: L97.529; Problem Code Type: ICD-10; Not Available [facility] 3 03:53:33 Accident al fall Completed 201807/17/2020 Not Available [facility] 3 03:53:34 Cellulit is of toe 41607181 Completed 201605/08/2017 Problem Code: L03.039; Problem Code Type: ICD-10; Not Available [facility] 3 03:53:35 Pre-surg isabel evaluati on Completed 202202/22/2023 Problem Code: Z01.818; Problem Code Type: ICD-10; Not Available [facility] 4 05:38:03 Intertri go 66754769 Active 2023 Martha Lopez RN null, [facility]. 4 09:39:19 Thromboc ytosis 4010065 Active 2023 LORNA MARTINEZ APRN [address], [place], [address] , [facility]. 4 21:17:57 Impacted cerumen 81810061 Active 2023 LORNA MARTINEZ, RN [employer] [address], [place], [address] , [place] [facility] 10:33:20 Notes:*Problem Name: Oliguri a and anuria *Problem Status: active *Comments: *Problem Code: R34 *Problem Code Type: ICD-10 *Note Date: 03/04/2018 Problem Notes None recorded. Procedures Surgical History Date Name Laterality Status Provider Name and Address Organization Details Recorded Time 11/10/19 18 hysteroscopic endometrial laser ablation completed YOGESH BEDNER CMA [facility] 12/25/2023 10:53:02 Imaging Results Imaging Date Name Status [facility] by [facility] Details LastModified Time 06/10/2023 x-ray imaging report completed [address] [place], [address] 06/11/2023 05:27:44 06/10/2023 x-ray imaging report completed [address] [place], [address] 06/11/2023 05:27:45 06/19/2022 imaging/diagn ostic result completed Information not available 01/10/2024 22:41:36 06/17/2022 imaging/diagn ostic result completed Information not available 01/10/2024 22:42:02 06/17/2022 imaging/diagn ostic result completed Information not available 01/10/2024 22:42:03 06/19/2022 imaging/diagn ostic result completed Information not available 01/10/2024 22:43:35 10/22/2018 imaging/diagn ostic result completed Information not available 01/10/2024 22:43:36 06/19/2022 imaging/diagn ostic result completed Information not available 01/10/2024 22:43:43 12/31/2022 CT, cervical spine completed Information not available 01/10/2024 22:44:41 10/22/2018 imaging/diagn ostic result completed Information not available 01/10/2024 22:44:46 03/04/2023 imaging/diagn ostic result completed Information not available 01/10/2024 22:44:48 04/04/2021 imaging/diagn ostic result completed Information not available 01/10/2024 22:44:48 04/04/2021 imaging/diagn ostic result completed Information not available 01/10/2024 22:44:49 04/04/2021 imaging/diagn ostic result completed Information not available 01/10/2024 22:44:50 2022 imaging/diagn ostic result completed Information not available 01/10/2024 22:44:51 2022 imaging/diagn ostic result completed Information not available 01/10/2024 22:44:52 Procedure Notes None recorded. Medical Equipment None Reported. Allergies Allergen ID Allergen Name Allergen Category Reaction Reaction Severity Criticality Documentation Date Start Date Code Code System Note Provider Name and Address Organization Details Recorded Time 84962 fluoxetin e hydrochlo ride medicatio n other mild Not available 03/06/20232018 61932 4 RxNorm unsur e Aller gyRea ction : 'unsu re'; Not Available [facility] 3 16:14:36 67614 doxycycli ne Not available rash severe Not available 03/06/20232022 3640 RxNorm Aller gyRea ction : 'Rash , Gastr ointe avelino l,'; Not Available [facility] 3 16:14:36 Medications Name Sig Start Date Stop Date Status Note LastModified by Organization Details LastModified Time Prescript ion - Renewal active DME Not Available Not Available Not Available acetamino phen 325 mg tablet Take 3 tablet by mouth every eight hours as needed active Per [facility] d/c summary 02/25/23 Not Available Not [...] eight hours as needed 07/23 completed Per [facility] d/c summary 02/25/23 Not Available Not [...] daily to affected area 07/23 completed Per [facility] d/c summary 02/25/23 Not Available Not [...] three times a day 09/27 completed last [facility] Infectio us note stated Bactrim DS 800-160m g 1 BID Not Available Not Available Not Available sodium chloride 0.9 % (flush) injection syringe Infuse 10ml into venous catheter 2 times a day 07/23 completed Per [facility] d/c summary 02/25/23 Not Available Not Available Not Available ceftriaxo ne 2 gram/50 mL in dextrose (iso-osm) intraveno us piggyback Infuse 2 gram intraven ously once a day Infuse 50ml (2g total) into a venous catheter daily 07/23 completed Per [facility] d/c summary 02/25/23 Not Available Not [...] 12 patch free hours) 07/23 completed Per [facility] d/c summary 02/25/23 Not Available Not [...] Updated DateTime 04/24/2023 157.48 cm 22.7 kg/m2 71487.45 g 98 mm[Hg] 68 mm[Hg] YOGESH BENDER [facility] 3 09:07:06 Date Recorded Body height Body mass index (BMI) Body weight Oxygen saturation Oxygen saturation in Arterial blood by Pulse oximetry Heart rate Systolic blood pressure Diastolic blood pressure Provider Name and Address Organization Details Last Updated DateTime 4 157.48 cm 22.7 kg/m2 45593.4 5 g 99 % 99 % 86 /min 112 mm[Hg] 74 mm[Hg] YOGESH BENDER [facility] 4 08:53:15 Date Recorded Body height Body mass index (BMI) Body weight Body temperature Oxygen saturation Oxygen saturation in Arterial blood by Pulse oximetry Heart rate Systolic blood pressure Diastolic blood pressure Provider Name and Address Organization Details Last Updated DateTime 4 157.48 cm 22.6 kg/m2 75667.9 6 g 97.9 [degF] 97 % 97 % 110 /min 98 mm[Hg] 64 mm[Hg] [facility] 10:12:40 Date Recorded Body height Body temperature Oxygen saturation Oxygen saturation in Arterial blood by Pulse oximetry Heart rate Systolic blood pressure Diastolic blood pressure Provider Name and Address Organization Details Last Updated DateTime 4 157.48 cm 96.2 [degF] 99 % 99 % 68 /min 110 mm[Hg] 72 mm[Hg] [facility] 4 10:37:40 Social History None recorded. Functional [...] Recorded Time MMR 09/16/1994 completed Not Available [facility] 03:50:44 MMR 03/20/1998 completed Not Available [facility] 03:50:45 DTaP, unspecified formulation 05/15/1994 completed Not Available [facility] 03/06/2023 03:50:45 DTaP, unspecified formulation 1993 completed Not Available [facility] 03/06/2023 03:50:45 DTaP, unspecified formulation 1993 completed Not Available [facility] 03/06/2023 03:50:45 DTaP, unspecified formulation 03/07/1994 completed Not Available [facility] 03/06/2023 03:50:45 DTaP, unspecified formulation 03/20/1998 completed Not Available [facility] 03/06/2023 03:50:45 meningococcal ACWY, unspecified formulation 09/15/2011 completed Not Available [facility] 03/06/2023 03:50:46 Td (adult), 5 Lf tetanus toxoid, preservative free, adsorbed 10/20/2016 completed Not Available [facility] 03/06/2023 03:50:46 Tdap 10/22/2018 completed Not Available [facility] 03:50:46 Tdap 11/24/2006 completed Not Available [facility] 03:50:46 Influenza, split virus, quadrivalent, PF 01/15/2021 completed Not Available [facility] 03/06/2023 03:50:47 Influenza, split virus, quadrivalent, PF 02/17/2022 completed Not Available [facility] 03/06/2023 03:50:47 Influenza, split virus, quadrivalent, PF 02/28/2019 completed Not Available [facility] 03/06/2023 03:50:48 Influenza, split virus, quadrivalent, PF 04/02/2020 completed Not Available [facility] 03/06/2023 03:50:48 Influenza, split virus, quadrivalent, preservative 03/02/2017 completed Not Available [facility] 03/06/2023 03:50:48 Influenza, split virus, quadrivalent, preservative 03/04/2018 completed Not Available [facility] 03/06/2023 03:50:48 Hib, unspecified formulation 1993 completed Not Available [facility] 03/06/2023 03:50:48 Hib, unspecified formulation 09/16/1994 completed Not Available [facility] 03/06/2023 03:50:49 Hib, unspecified formulation 1993 completed Not Available [facility] 03/06/2023 03:50:49 Hib, unspecified formulation 03/07/1994 completed Not Available [facility] 03/06/2023 03:50:49 COVID-19, mRNA, LNP-S, PF, 100 mcg/0.5mL dose or 50 mcg/0.25mL dose 08/21/2020 completed Not Available [facility] 03/06/20 03:50:49 COVID-19, mRNA, LNP-S, PF, 100 mcg/0.5mL dose or 50 mcg/0.25mL dose 09/18/2020 completed Not Available [facility] 03/06/20 03:50:49 COVID-19, mRNA, LNP-S, PF, 100 mcg/0.5mL dose or 50 mcg/0.25mL dose 04/10/2021 completed Not Available [facility] 03/06/20 03:50:50 varicella 11/24/2006 completed Not Available [facility] 03:50:50 varicella 01/21/1999 completed Not Available [facility] 03:50:50 SARS-COV-2 (COVID-19) vaccine, UNSPECIFIED 09/25/2021 completed Not Available [facility] 03/06/2023 03:50:50 Hep B, unspecified formulation 1993 completed Not Available [facility] 03/06/2023 03:50:51 Hep B, unspecified formulation 1993 completed Not Available [facility] 03/06/2023 03:50:51 Hep B, unspecified formulation 03/07/1994 completed Not Available [facility] 03/06/2023 03:50:52 Hep A, unspecified formulation 06/22/2000 completed Not Available [facility] 03/06/2023 03:50:52 Hep A, unspecified formulation 11/07/1997 completed Not Available [facility] 03/06/2023 03:50:52 influenza, unspecified formulation 01/18/2016 completed Not Available [facility] 03/06/2023 03:50:52 polio, unspecified formulation 05/15/1994 completed Not Available [facility] 03/06/2023 03:50:52 polio, unspecified formulation 1993 completed Not Available [facility] 03/06/2023 03:50:52 polio, unspecified formulation 09/15/1994 completed Not Available [facility] 03/06/2023 03:50:53 polio, unspecified formulation 03/07/1994 completed Not Available [facility] 03/06/2023 03:50:53 Influenza, split virus, quadrivalent, PF 01/23/2023 completed Not Available [facility] 05/08/2023 05:31:40 Past Encounters Encounter ID Performer Location Encounter Start Date Encounter Closed Date Diagnosis/Indication Diagnosis SNOMED-CT Code Diagnosis ICD10 Code [id number] LORNA MARTINEZ[address] [address] 04/24/2023 08:44:16 04/24/2023 10:09:30 Tetraplegia 95763366 G82.50 Osteomyelitis 53112054 M 86.9 High enzym e level in serum 741273969 R74.9 [id number] L[address]NA[address]UAN MARTINEZ[address] [address] 07/24/2023 08:40:55 07/24/2023 09:38:18 Tetraplegia 81248665 G82.50 Osteomyelitis 43779872 M 86.9 High enzym e level in serum 583022812 R74.9 [id number] LORNA MART[address] [address] 11/10/2023 09:56:28 11/10/2023 12:18:07 Tetraplegia 18333116 G82.50 Osteomyelitis 76167341 M 86.9 High enzym e level in serum 669525144 R74.9 Vitamin D deficiency 347 41550 E55.9 Impacted cerumen 2138705 6 H61.23 [id number] [address] [address] 12/25/2023 10:23:26 12/25/2023 10:57:24 Tetraplegia 82457032 G82.50 Osteomyelitis 06604193 M 86.9 High enzym e level in serum 655288908 R74.9 Vitamin D deficiency 347 18547 E55.9 Impacted cerumen 3380400 6 H61.23 Health Concerns Section Related Observation LastModified by Organization Detai ls LastModified Time None Recorded Concern Status LastModified by Organization Details LastModified Time None Recorded Advance Directives Directive None Recorded Payers Encounter Date Sequence Insurance Name Policy Number Policy Green Covered Member ID Green Member ID Guarantor Name 04/24/2023 1 [facility] (MEDICAID) Tana Cavazos [id number] Tana Cavazos 07/24/2023 1 [facility] (MEDICAID) Tana Cavazos [id number] Tana Cavazos 11/10/2023 1 [facility] (MEDICAID) Tana Cavazos [id number] Tana Cavazos 12/25/2023 1 [facility] (MEDICAID) Tana Cavazos [id number] Tana Cavazos Notes Date Note Type Note [...] -- Has been working with surgeon at [facility] and ID at [facility]. -- Has elevated inflammatory markers that are [...] increasing. She had abdominal US done at [facility] 03/28/23 and this was normal. ID felt [...] TID did help with this. LORNA MARTINEZ, RN [employer] [address], [place], [address], [place] [facility]. 04/24/2023 10:55:28 07/24/2023 text/html HPI Notes: Is [...] -- Has been working with surgeon at [facility] and ID at [facility]. -- Has elevated inflammatory markers that are [...] increasing. She had abdominal US done at [facility] 03/28/23 and this was normal. ID felt [...] and see how she does. LORNA MARTINEZ, RN [employer] [address], [place], [address], [facility] - [facility]. 07/24/2023 09:32:54 11/10/2023 text/html HPI Notes: Is [...] -- Has been working with surgeon at [facility] and ID at [facility]. -- Has elevated inflammatory markers that are gradually rising, specifically CRP and ESR -- Normal CK -- LFTs are elevated; initially alk phos was primarily elevated, but over the last few months her AST and ALT have been increasing. She had abdominal US done at [facility] 03/28/23 and this was normal. ID felt [...] the surgeon. Fannie has full guardianship of [place]. LORNA MARTINEZ, RN [employer] [address], [place], [address], [facility] - [facility]. 11/10/2023 12:42:59 12/25/2023 text/html HPI Notes: Is [...] increasing. She had abdominal US done at [facility] 03/28/23 and this was normal. ID felt [...] begin bactrim 1 BID for oral stepdown/ custodial suppression. Labs repeat in 1 month for CBCD, CMP, CRP. Fannie has full guardianship of [place]. Air mattress has popped. LORNA MARTINEZ, RN [employer] [address], [place], [address], [facility] - [facility]. 12/25/2023 12:05:34 OBGyn Episode No OBEpisode recorded.
--- OUTSIDE RECORDS SUMMARY | 2024-01-12 21:12 | XMS_ITS | Encounter Summary ---
Author Organization [facility] Address [facility] [place] [address] Care Team Providers Care Pharmaceutical Sales Specialist Name Role Phone Lorna Bal APRN Primary Care Provider [phone] Encounter Details Date Type Department Care Team (Late st Contact Info) Description 01/06/2024 Telephone [place] [phone] Destiny Callaway MD [facility] [place] [address] Social History Tobacco Use Types Packs/Day Years Used Date Smoking Tobacco: Never Passive Smoke Exposure: Never Smokeless Tobacco: Never Comments:NO SMOKERS IN THE H OME Alcohol Use Standard Drinks/Week Comments No 0 (1 standard drink = 0.6 oz pur e alcohol) [facility] Utilities Answer Date Recorded In the [...] any time in the past 12 m [facility], were you homeless or living in a [...] encounter Miscellaneous Notes * Telephone Encounter - Destiny Callaway MD - 01/06/2024 10:59 AM EDT Covering for Dr. Ambriz. Received a message from Fannie about concern for CRP going up on 01/04. Labs ordered by PCP Lorna Bal. I reviewed in media; CRP in the 60s, ESR 70. Spoke to Fannie and Nely (listed as caregiver in eDH). Tana is not having fevers, changes in behavior, drainage. She has a small red spot at sacrum, they have seen that before. 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 She is nonverbal and thus unable to share symptoms. Currently on TMP-SMX. Drain removed on 12/20 with IR report no residual cavity. I recommended that rather than acting on a single set of values, in absence of symptoms, that we repeat this in 1 week (so, 01/10). If CRP is still elevated or further elevated, this may warrant a clinic visit +/- repeat imaging and further workup. If there is any clinical concern for sign/symptoms in the meantime, call us right away for earlier eval/management. Destiny Callaawy MD ID documented in this encounter Plan of Treatment Upcoming Encounters Date Type Department Care Team (Late st Contact Info) Description 06/02/2024 12:30 PM EST Office Visit [place] [address] Hollie Ambriz MD [facility] [address] [place] [address] documented as of this encounter Visit Diagnoses Not on filedocumented in this encounter Care Teams Pharmaceutical Sales Specialist Relationship Specialty Start Date End Date Lorna Bal, [place] [address] [place] [address] PCP - General Family Medicine 05/27/18 documented as of this encounter
--- OUTSIDE RECORDS SUMMARY | 2024-01-12 21:12 | XMS_ITS | Encounter Summary ---
Author Organization [facility] [place] [address] Care Team Providers Care Pharmacovigilance Specialist Name Role Phone Lorna Bal APRN Primary Care Provider [phone] Encounter Details Date Type Department Care Team (Late st Contact Info) Description 01/06/2024 Telephone [place] [phone] Mesha Mckeon, RN Social History Tobacco Use Types Packs/Day Years Used Date Smoking Tobacco: Never Passive Smoke Exposure: Never Smokeless Tobacco: Never Comments:NO SMOKERS IN THE H OME Alcohol Use Standard Drinks/Week Comments No 0 (1 standard drink = 0.6 oz pur e alcohol) [facility] Utilities Answer Date Recorded In the past 12 months has e [employer], gas, oil, or water [email or web address] threatened to shut off services in your [...] in a chcf (including now)? No 10/29/2023 IPV Inpatient Questions [...] PM EST Office [place] [address] Hollie Ambriz MD [facility] [place] [address] documented as of this encounter Visit Diagnoses Not on filedocumented in this encounter Care Teams Pharmacovigilance Specialist Relationship Specialty Start Date End Date Lorna Bal APRN [address] [place] [address] PCP - General Family Medicine 05/27/18 documented as of this encounter
--- OUTSIDE RECORDS SUMMARY | 2024-01-12 21:12 | XMS_ITS | Continuity of Care Document ---
Author Organization [facility] Address [address] [place] [address] Assessment Encounter Date Assessment Date Assessment LastModified [...] Debrox 6.5 % ear drops 2023 024 [facility], [place], [facility], [address] [place], [address], 12/25/2023 12:05:32 cholecalc iferol (vitamin D3) 125 mcg (5,000 unit) tablet 2023 024 [facility], [place], [address] [place], [address], 12/25/2023 12:05:31 baclofen 15 mg tablet 2023 024 [facility], [place], [address] [place], [address], 12/25/2023 12:05:30 Patient TargetsNo targets recorded. Patient InstructionsNo instructions recorded. Reason for Referral Orthopedic Surgeon Referral for Tetraplegia 2nd time sending for spasms to the right wrist/ thumb. Referring Physician: Lorna Martinez [facility], Encounter Date: 07/24/2023 Orthopedic Surgeon Referral for Contracture of joint of hand hand specialist for right thumb pain and contracture of hand Referring Physician: Lorna Martinez [facility], Encounter Date: 07/28/2023 Results Created [...] Time Consciou sness and/or awarenes s finding 321540082 Active 2016 Problem Code: R41.89; Problem Code Type: ICD-10; LORNA MARTINEZ, DIRECTOR OF CASEWORK [address], [place], [address] , [facility] 3 06:06:35 Tetraple janet 85124328 Active 201609/03/19 19 - Comments only - Lorna Martinez DIRECTOR OF CASEWORK - with cognitiv e dysfunct ion, scoliosi s, spastici ty, hypotnoi a, chronic pains, contract ures with pressure ulcers to bilatera l heels. Overall stable and well cared for. 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 Order mesh slings, caregive r will contact [facility] to see if the ones needed are availabl e through them since not able to get through [facility]. Needs new TLSO for her [...] Problem Code Type: ICD-10; [address], [place], [address] , [facility] 3 06:06:34 Scoliosi s deformit y of spine 513683305 Active 2016 Problem Code: M41.9; Problem Code Type: ICD-10; [address], [place], [address] , [facility] 3 06:06:35 Spasm 17048139 Active 201603/02/20 17 - Comments only - Emelyn Easley MD - Patient will need on going physical therapy to help prevent worsenin g spastici ty and contract ures. Problem Code: R25.2; Problem Code Type: ICD-Kylie; [address], [place], [address] , [facility] 3 06:06:35 Idiopath ic urticari a 85309590 Active 2016 Problem Code: L50.1; Problem Code Type: ICD-10; [address], [place], [address] , [facility] 3 06:06:35 Supraven tricular tachycar belinda 8782981 Active 201606/08/19 18 - Comments only - Lorna Martinez APRN - monitor for now. Problem Code: I47.1; Problem Code Type: ICD-10; [address], [place], [address] , [facility] 3 06:06:35 Traumati c or non-trau matic injury 506631685 Active 2016 Problem Code: T14.90; Problem Code Type: ICD-10; [address], [place], [address] , [facility] 3 06:06:35 Disorder of muscle 965462875 Active 201610/21/19 17 - Comments only - Emelyn Easley MD - This causes some constipa tion that has been improved by miralax. Problem Code: M62.9; Problem Code Type: ICD-10; [address], [place], [address] , [facility] 3 06:06:35 Adult health examinat [...] Problem Code Type: ICD-10; [address], [place], [address] , [facility] 3 06:06:35 Impacted cerumen of kenya l ears [id number] 76708 Completed 201609/29/2016 09/16/19 17 - Comments only - Jade he CANDY BAR ATTENDANT - Rev'd procedur e for cerumen removal [...] H61.23; Problem Code Type: ICD-10; Not Available [facility] 3 03:53:19 Impacted cerumen 58039527 Active 201612/04/19 17 - Comments only - Jade he CANDY BAR ATTENDANT - - Cerumen not impacted today. Recommen ded to continue regular checks at future visits, discusse d appropri ate ear hygiene, and advised f/u for developm ent of symptoms such as ear pulling/ pain or trouble hearing. The patient verbaliz ed understa nding and agreemen t to this care plan. Problem Code: H61.20; Problem Code Type: ICD-10; LORNA MARTINEZ, DIRECTOR OF CASEWORK [address], [place], [address] , [facility] 3 06:06:35 Pre-surg isabel evaluati on Completed 201601/09/2017 12/27/19 17 - Comments only - Jade he CANDY BAR ATTENDANT - - Pt presents for pre-op physical as she is having a DEXA scan on 12/30 at [facility] and they have requeste d that she has a physical within the last 30 days. There are no concerns raised by her aid who is with her, and no findings on exam that suggest she should not move forward with procedur e as schedule d. Problem Code: Z01.818; Problem Code Type: ICD-10; Not Available [facility] 3 03:53:19 Contract ure of joint of hand 73956099 Active 201606/08/19 18 - Comments only - Lorna Valeriano HAYNES - continue wearing splint during the day. Wash cloth in her hand while sleeping . Continue with routine stretchi ng and movement as able. Problem Code: M24.549; Problem Code Type: ICD-10; LORNA MARTINEZ APRN [address], [place], [address] , [facility] 3 06:06:35 History of skin and/or subcutan eous tissue disease 03209623819 9105 Active 201706/08/19 18 - Comments only - Lorna Valeriano HAYNES - has seen podiatry . Monitor feet routinel y. Problem Code: Z87.2; Problem Code Type: ICD-10; LORNA MARTINEZ APRN [address], [place], [address] , [facility] 3 06:06:35 Disorder of tooth developm ent 182861329 Completed 201703/11/2018 Problem Code: K00.9; Problem Code Type: ICD-10; Not Available [facility] 3 03:53:19 Exposure to communic able disease Completed 202004/03/2021 Problem Code: Z20.828; Problem Code Type: ICD-10; Not Available [facility] 3 03:53:20 Localize d eruption of skin 964806142 Completed 202112/08/2021 Problem Code: R21; Problem Code Type: ICD-10; Not Available [facility] 3 03:53:20 Disorder of skin appendag e 488772450 Completed 202112/08/2021 Problem Code: L73.9; Problem Code Type: ICD-10; Not Available [facility] 3 03:53:20 Sepsis caused by Escheric hia coli 178634769 Active 202208/08/19 23 - Comments only - Lorna Martinez APRN - continue mgmt through [facility]. Blood drawn, may not be enough of sample but will send. If not enough, will need to come to office. drawn CBCD, CRP, CMP. 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 [address], [facility] [address] , [facility] 4 07:57:05 Osteomye litis 67996110 Active 2022 Problem Code: M86.9; Problem Code Type: ICD-10; LORNA MARTINEZ APRN [address], [place], [address] , [facility] 3 06:06:35 Congenit al deformit y of spine 230724383 Active 2022 Problem Code: Q67.5; Problem Code Type: ICD-10; [address], [facility] [address] , [facility] 3 06:06:35 Chronic osteomye litis with draining sinus 412087266 Active 2022 Problem Code: M86.48; Problem Code Type: ICD-10; [address], [place], [address] , [facility] 3 06:06:35 Fever 242801666 Completed 202011/07/2021 Problem Code: R50.9; Problem Code Type: ICD-10; Not Available [facility] 3 03:53:22 Pain of toe of left foot 94784893006 9108 Completed 201603/02/2017 Problem Code: M79.675; Problem Code Type: ICD-10; Not Available [facility] 3 03:53:23 Tinea pedis 4717535 Completed 201607/17/2020 Problem Code: B35.3; Problem Code Type: ICD-10; Not Available [facility] 3 03:53:23 Device in situ 437045118 Completed 201609/02/2018 Problem Code: Z97.8; Problem Code Type: ICD-10; Not Available [facility] 3 03:53:24 Closed fracture of lower leg 888373740 Completed 201607/17/2020 Problem Code: S82.90xD ; Problem Code Type: ICD-10; Not Available [facility] 3 03:53:27 Pain of right wrist 53743863518 9100 Completed 202011/07/2021 Problem Code: M25.531; Problem Code Type: ICD-10; Not Available [facility] 3 03:53:27 Disorder of skin and/or subcutan eous tissue 82877188 Completed 201807/17/2020 Problem Code: L98.9; Problem Code Type: ICD-10; Not Available [facility] 3 03:53:28 Pain in right hip joint 55824164814 9102 Completed 202011/07/2021 Problem Code: M25.551; Problem Code Type: ICD-10; Not Available [facility] 3 03:53:30 Muscle pain 72695700 Completed 202011/07/2021 Problem Code: M79.10; Problem Code Type: ICD-10; Not Available [facility] 3 03:53:32 Pain in right lower limb 328963821 Completed 201607/17/2020 Problem Code: M79.604; Problem Code Type: ICD-10; Not Available [facility] 3 03:53:32 Vaccine adverse reaction 511205930 Completed 201911/07/2021 Not Available [facility] 3 03:53:33 Chronic ulcer of foot 572318981 Completed 201707/17/2020 Problem Code: L97.529; Problem Code Type: ICD-10; Not Available [facility] 3 03:53:33 Accident al fall Completed 201807/17/2020 Not Available [facility] 3 03:53:34 Cellulit is of toe 41659747 Completed 201605/08/2017 Problem Code: L03.039; Problem Code Type: ICD-10; Not Available [facility] 3 03:53:35 Pre-surg isabel evaluati on Completed 202202/22/2023 Problem Code: Z01.818; Problem Code Type: ICD-10; Not Available [facility] 4 05:38:03 Intertri go 35539148 Active 2023 Martha Lopez RN [facility], [facility] 4 09:39:19 Thromboc ytosis 1345506 Active 2023 LORNA MARTINEZ APRN [address], [place], [address] , [facility] 4 21:17:57 Impacted cerumen 82469684 Active 2023 LORNA MARTINEZ APRN [address], [place], [address] , [facility] 4 10:33:20 Notes:*Problem Name: Oliguri a and anuria *Problem Status: active *Comments: *Problem Code: R34 *Problem Code Type: ICD-10 *Note Date: 03/04/2018 Problem Notes None recorded. Procedures Surgical History Date Name Laterality Status Provider Name and Address Organization Details Recorded Time 11/10/19 18 hysteroscopic endometrial laser ablation completed YOGESH BENDER CMA [facility] 12/25/2023 10:53:02 Imaging Results None recorded. Procedure Notes None recorded. Medical Equipment None Reported. Allergies Allergen ID Allergen Name Allergen Category Reaction Reaction Severity Criticality Documentation Date Start Date Code Code System Note Provider Name and Address Organization Details Recorded Time 64104 fluoxetin e hydrochlo ride medicatio n other mild Not available 03/06/20232018 16638 4 RxNorm unsur e Aller gyRea ction : 'unsu re'; Not Available [facility] 3 16:14:36 81985 doxycycli ne Not available rash severe Not available 03/06/20232022 3640 RxNorm Aller gyRea ction : 'Rash , Gastr ointe avelino l,'; Not Available [facility] 3 16:14:36 Medications Name Sig Start [...] three times a day 09/27 completed last [facility] Infectio us note [...] and Address Organization Details Last Updated DateTime 157.48 cm 96.2 [degF] 99 % 99 % 68 /min 110 mm[Hg] 72 mm[Hg] YOGESH BENDER CMA [facility] 10:37:40 Social History None recorded. Functional Status [...] Recorded Time MMR 09/16/1994 completed Not Available [facility] 03:50:44 MMR 03/20/1998 completed Not Available [facility] 03:50:45 DTaP, unspecified formulation 05/15/1994 completed Not Available [facility] 03/06/2023 03:50:45 DTaP, unspecified formulation 1993 completed Not Available [facility] 03/06/2023 03:50:45 DTaP, unspecified formulation 1993 completed Not Available [facility] 03/06/2023 03:50:45 DTaP, unspecified formulation 03/07/1994 completed Not Available [facility] 03/06/2023 03:50:45 DTaP, unspecified formulation 03/20/1998 completed Not Available [facility] 03/06/2023 03:50:45 meningococcal ACWY, unspecified formulation 09/15/2011 completed Not Available [facility] 03/06/2023 03:50:46 Td (adult), 5 Lf tetanus toxoid, preservative free, adsorbed 10/20/2016 completed Not Available [facility] 03/06/2023 03:50:46 Tdap 10/22/2018 completed Not Available [facility] 03:50:46 Tdap 11/24/2006 completed Not Available [facility] 03:50:46 Influenza, split virus, quadrivalent, PF 01/15/2021 completed Not Available [facility] 03/06/2023 03:50:47 Influenza, split virus, quadrivalent, PF 02/17/2022 completed Not Available [facility] 03/06/2023 03:50:47 Influenza, split virus, quadrivalent, PF 02/28/2019 completed Not Available [facility] 03/06/2023 03:50:48 Influenza, split virus, quadrivalent, PF 04/02/2020 completed Not Available [facility] 03/06/2023 03:50:48 Influenza, split virus, quadrivalent, preservative 03/02/2017 completed Not Available [facility] 03/06/2023 03:50:48 Influenza, split virus, quadrivalent, preservative 03/04/2018 completed Not Available [facility] 03/06/2023 03:50:48 Hib, unspecified formulation 1993 completed Not Available [facility] 03/06/2023 03:50:48 Hib, unspecified formulation 09/16/1994 completed Not Available [facility] 03/06/2023 03:50:49 Hib, unspecified formulation 1993 completed Not Available [facility] 03/06/2023 03:50:49 Hib, unspecified formulation 03/07/1994 completed Not Available [facility] 03/06/2023 03:50:49 COVID-19, mRNA, LNP-S, PF, 100 mcg/0.5mL dose or 50 mcg/0.25mL dose 08/21/2020 completed Not Available [facility] 03/06/20 03:50:49 COVID-19, mRNA, LNP-S, PF, 100 mcg/0.5mL dose or 50 mcg/0.25mL dose 09/18/2020 completed Not Available [facility] 03/06/20 03:50:49 COVID-19, mRNA, LNP-S, PF, 100 mcg/0.5mL dose or 50 mcg/0.25mL dose 04/10/2021 completed Not Available [facility] 03/06/20 03:50:50 varicella 11/24/2006 completed Not Available [facility] 03:50:50 varicella 01/21/1999 completed Not Available [facility] 03:50:50 SARS-COV-2 (COVID-19) vaccine, UNSPECIFIED 09/25/2021 completed Not Available [facility] 03/06/2023 03:50:50 Hep B, unspecified formulation 1993 completed Not Available [facility] 03/06/2023 03:50:51 Hep B, unspecified formulation 1993 completed Not Available [facility] 03/06/2023 03:50:51 Hep B, unspecified formulation 03/07/1994 completed Not Available [facility] 03/06/2023 03:50:52 Hep A, unspecified formulation 06/22/2000 completed Not Available [facility] 03/06/2023 03:50:52 Hep A, unspecified formulation 11/07/1997 completed Not Available [facility] 03/06/2023 03:50:52 influenza, unspecified formulation 01/18/2016 completed Not Available [facility] 03/06/2023 03:50:52 polio, unspecified formulation 05/15/1994 completed Not Available [facility] 03/06/2023 03:50:52 polio, unspecified formulation 1993 completed Not Available [facility] 03/06/2023 03:50:52 polio, unspecified formulation 09/15/1994 completed Not Available [facility] 03/06/2023 03:50:53 polio, unspecified formulation 03/07/1994 completed Not Available [facility] 03/06/2023 03:50:53 Influenza, split virus, quadrivalent, PF 01/23/2023 completed Not Available [facility] 05/08/2023 05:31:40 Past Encounters Encounter ID Performer Location Encounter Start Date Encounter Closed Date Diagnosis/Indication Diagnosis SNOMED-CT Code Diagnosis ICD10 Code [id number] LORNA MARTINEZ APRN [address] [address] 12/25/2023 10:23:26 12/25/2023 10:57:24 Tetraplegia 50330117 G82.50 [facility] [id number] M 86.9 High enzym e level in serum 144272481 R74.9 Vitamin D deficiency 347 18637 E55.9 Impacted cerumen 3471694 6 H61.23 Health Concerns Section Related Observation LastModified by Organization [employer] [facility] LastModified Time None Recorded Concern Status LastModified by Organization Details LastModified Time None Recorded Payers Encounter Date Sequence Insurance Name Policy Number Policy Green Covered Member ID Green Member ID Guarantor Name 12/25/2023 1 [facility] (MEDICAID) Tana Cavazos [id number] Tana Cavazos Notes Date Note Type Note [...] increasing. She had abdominal US done at [facility] 03/28/23 and this [...] begin bactrim 1 BID for oral stepdown/ snf suppression. Labs repeat in 1 month for CBCD, CMP, CRP. Fannie has full guardianship of Kalyan. Air mattress has popped. LORNA MARTINEZ, DIRECTOR OF CASEWORK [address], [place], [address], [facility], [facility]. 12/25/2023 12:05:34 OBGyn Episode No OBEpisode recorded.
--- OUTSIDE RECORDS SUMMARY | 2024-01-12 21:12 | XMS_ITS | Clinical Summary ---
Author Organization [facility] Address [facility] [place] [address] Care Team Providers Care Artist Suspect Name Role Phone Lorna Bal APRN Primary Care Provider [phone] Allergies Active Allergy Reactions Criticality Noted Date Comments Cyclobenzaprine 01/28/2023 Other Reaction(s): Not available Doxycycline Other (See Comments) 08/05/2023 Cough, rash Fluoxetine Other (See Comments) High 02/28/2014 HIVES, HEART RACES Penicillins 06/24/2022 Transparent Dressings Itching,Dermatitis Medium 2014 Please use [id number] Medications Medication Sig Dispensed Refills Start Date [...] Encounters Date Type Department Care Team Description 01/12/2024 Telephone Infectious Disease at [place] [phone] Yas Tracy RN Abnormal Lab 01/12/2024 [place] [address] Destiny Callaway MD 01/06/2024 [place] [address] Mesha Mckeon RN 01/06/2024 [place] [address] Destiny Callaway MD 01/05/2024 [place] [address] None 12/21/2023 11:08 AM EDT - 12/21/2023 11:59 PM EDT Hospital Encounter Radiology at [place] [phone] Mich Martino MD Abscess Discharge Disposition: Home 12/21/2023 Travel 12/15/2023 Notes [place] [address] Yas Tracy RN 12/15/2023 [place] [address] Hollie Ambriz MD Other 12/14/2023 Notes Only Infectious Disease at [place] [phone] Mesha Mckeon, RN 12/03/2023 1:45 PM EDT Laboratory Appointment Lab [address] [place] [phone] 12/03/2023 1:20 PM EDT - 12/03/2023 11:59 PM EDT Hospital Encounter Radiology at [place] [phone] Andrade Melvin MD Abscess Discharge Disposition: Home 12/03/2023 12:30 PM EDT Office Visit Infectious Disease at [place] [phone] Hollie Ambriz MD 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 Dx); 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 12/03/2023 Notes Only Infectious Disease at [place] [phone] Mesha Mckeon, RN 12/03/2023 Orders [place] [address] Hollie Ambriz MD Spinal abscess; Bacteremia; USP 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 12/03/2023 Travel 12/02/2023 Orders [place] [address] Hollie Ambriz MD Spinal abscess; Bacteremia 11/25/2023 2:00 PM EDT TH Visit (TeleHealth) [place] [address] Lilli Joy APRN Osteomyelitis, unspecified site, unspecified type; Hardware complicating wound infection, subsequent encounter; 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 11/09/2023 [place] [address] Yas rTacy RN 10/28/2023 8:05 PM EDT - 11/03/2023 5:25 PM EDT Hospital Encounter Medical Specialites Unit Level 1 Wing C at [place] [address] Hernandez, MD Damaris Arias, MD Vianey Zafar Muhammad, MD Ivan, MD Danita Lovett, Isaiah Alexander MD Abscess; Spinal abscess Discharge Disposition: Home with VNA 10/28/2023 Travel 10/28/2023 Telephone Infectious Disease at [place] [address] Neva Thorpe RN 10/28/2023 Telephone Infectious Disease at [place] [address] Neva Thorpe RN 10/28/2023 Telephone Infectious Disease at [place] [address] Neva Thorpe RN 10/28/2023 Telephone Infectious Disease at [place] [address] Neva Thorpe, EUNICE 10/27/2023 [place] [address] Hollie Ambriz MD 10/27/2023 Telephone Infectious Disease at [place] [address] Halima García from Last 3 Months Immunizations Name Administration Dates Next Due Influenza (Novel [id number]) Injectable 02/25/2009 Influenza Trivalent w/Preservative 04/25/2011 Influenza [...] any time in the past 12 m [facility], were you homeless or living in [...] PM EST Office [place] [address] Hollie Ambriz MD [facility] [address] INFECTIOUS [place] [address] Health Maintenance Due Date Last Done Comments [...] Priority Date/Time Associated Diagnosis Comments LAB SCAN 01/06/2024 12:00 AM EDT LAB SCAN 12/30/2023 12:00 AM EDT IR [...] 3 Months Results * Scan Doc: Lab (01/06/2024 12:00 AM EDT) Only the most recent of14 resultswithin the time period is included. Narrative 01/06/2024 12:00 AM EDT Ordered by an unspecified [...] tracks back along catheter. Catheter removed. ?? Mcih Martino MD IM IR ORDERABLES * Place PICC Line: Contact Vascular Access Page [phone] Extremity to exclude: No restrictions; Is PICC [...] to the planned procedure. Hand Hygiene: The director private music therapy agency did perform hand hygiene prior to line insertion. Catheter type: PICC Lot number: [id number] Procedure Technique: Skin was prepped with chlorhexidine. [...] Guidance (IV Team) (11/03/2023 11:19 AM EDT) [employer] WORKSTATION ID [id number] RAD Anatomical Region Laterality Modality N/A Radio [...] have questions please contact the health director long term care that requested your imaging first. ? [...] who have questions please contactthe health director long term care that requested your imaging first. Isaiah Samayoa [...] resultswithin the time period is included. Pathologist [facility] C-Reactive Protein 62.8(H) <=4.9 mg/L [facility] Blood 11/02/2023 5:26 AM EDT 11/02/2023 5:44 AM EDT Narrative Resulting Agency Comment Spec In Lab Isaiah Samayoa MD CHEMISTRY ORDERABLES [facility] [place] [address] * (ABNORMAL) Hemogram (11/02/2023 5:26 AM EDT) Only the most recent of5 resultswithin the time period is included. [facility] White Blood Cell 7.5 4.0 - 9.5 x10(3)/mc L [facility] Red Blood Cell 3.89(L) 4.00 - 5.21 x10(6)/mc L [facility] Hemoglobin 11.1(L) 11.7 - 15.5 g/dL [facility] Hematocrit 33.8(L) 35.7 - 45.8 % [facility] Mean Cell Volume 86.9 82.6 - 94.4 fL [facility] Mean Cell Hemoglobin 28.5 27.1 - 32.0 pg [facility] Mean Cell Hemoglobin Concentration 32.8 31.7 - 35.0 g/dL [facility] Platelet 477(H) 145 - 357 x10(3)/mc L [facility] RDW Standard Deviation 45.1 37.0 - 46.0 fL [facility] RDW coefficient of variation 14.3(H) 11.5 - 14.1 % [facility] Mean Platelet Volume 9.1 7.6 - 12.9 fL [facility] NRBC% auto 0.0 % [facility] NRBC Absolute 0.000 0.000 - 0.000 x10(3)/mc L [facility] Blood 11/02/2023 5:26 AM EDT 11/02/2023 5:43 AM EDT Narrative Resulting Agency Comment Spec In Lab Isaiah Samayoa MD HEMATOLOGY ORDERABLE S [facility] [place] [address] * Differential, Automated (11/02/2023 5:26 AM EDT) Only the most recent of5 resultswithin the time period is included. Neutrophil % 69.0 % [facility] Neutrophil Absolute 5.16 1.70 - 6.10 x10(3)/[facility] Lymph % 21.7 % [facility] Lymphocytes Abs 1.6 0.9 - 3.2 x10(3)/[facility] Monocyte % 6.8 % [facility] Monocyte Abs 0.5 0.3 - 0.9 x10(3)/[facility] Eos % 1.6 % [facility] Eosinophils Abs 0.1 0.0 - 0.4 x10(3)/[facility] Basophil % 0.5 % [facility] Baso Absolute 0.0 0.0 - 0.1 x10(3)/[facility] Immature Gran % 0.40 % [facility] Comment: Immature granulocytes(IG's)percentage and absolute count will include metamyelocytes, myelocytes, and promyelocytes. Blood smears from CBCs yielding IG's will be scanned manually for concordance. If this scan disagrees with the automated IG or if promyelocytes are noted, a manual differential will be performed. Immature Gran Absolute 0.03 0.00 - 0.04 x10(3)/[facility] Blood 11/02/2023 5:26 AM EDT 11/02/2023 5:43 AM EDT Narrative Resulting Agency Comment Spec In Lab Isaiah Samayoa MD HEMATOLOGY ORDERABLE S Performing Organization Address City/[facility]/ZIP Co de Phone Number [facility] [place] [address] * CK (11/02/2023 5:26 AM EDT) Only the most recent of2 resultswithin the time period is included. Creatine Kinase 14 0 - 160 unit/L [facility] Blood 11/02/2023 5:26 AM EDT 11/02/2023 5:44 AM EDT Narrative Resulting Agency Comment Spec In Lab Isaiah Samayoa MD CHEMISTRY ORDERABLES Performing Organization Address [facility]/ZIP Co de Phone Number [facility] [place] [address] * (ABNORMAL) Comprehensive metabolic panel (non-fasting) (11/02/2023 5:26 AM EDT) Pathologist [facility] Glucose 109 65 - 199 mg/dL [facility] Comment:Diabetes: >=200 mg/d L plus symptoms Blood Urea Nitrogen 13 8 - 18 mg/dL [facility] Comment:result rechecked-mg Creatinine 0.27(L) 0.70 - 1.20 mg/dL [facility] Sodium 138 135 - 145 mmol/L [facility] Potassium 3.9 3.5 - 5.0 mmol/L [facility] Comment: Please note: ??Patients with WBC >100,000 may have falsely elevated Potassium levels. ??For accurate Potassium quantification in these patients send serum separator tube (gold top) for subsequent determinations. ??Contact the Clinical Chemistry Laboratory if there are any questions. Chloride 104 98 - 107 mmol/L [facility] Carbon Dioxide 21(L) 22 - 31 mmol/L [facility] Anion Gap 13 5 - 15 mmol/L [facility] Calcium 9.8 8.5 - 10.5 mg/dL [facility] Protein, Total 7.2 6.1 - 8.0 g/dL [facility] Albumin 3.5 3.2 - 5.2 g/dL [facility] Aspartate Aminotransferase 13 0 - 30 unit/L [facility] Alanine Aminotransferase 27 0 - 30 unit/L [facility] Alkaline Phosphatase 209(H) 35 - 105 unit/L [facility] Bilirubin, Total <0.2(L) 0.2 - 1.3 mg/dL [facility] Samayoa MD CHEMISTRY ORDERABLES Performing Organization Address City/State/[facility] Co de Phone Number [facility] [place] [address] * XR Abdomen 1 view (Generic) (11/01/2023 10:14 PM EDT) WORKSTATION ID [id number] RAD Anatomical Region Laterality Modality Abdomen N/A [...] have questions please contact the health director long term care that requested your imaging first. ? Electronically signed by: Marisela Estrella MD, [facility] ([phone]), at 11/02/2023 8:47 AM Narrative 11/02/2023 8:47 [...] who have questions please contactthe health director long term care that requested your imaging first. Mindy Da Silva APRN IMG DX ORDERABLES * MRSA PCR Screen ([facility]/CGP/APD/NLH) (10/31/2023 6:10 PM EDT) MRSA PCR Negative Negative [facility] MRSA (Interp) Methicillin-resist ant Staphylococcus aureus (MRSA) is NOT DETECTED The MRSA target DNA sequences (mec and SCC) were not detected within the acceptable ranges using the Xpert MRSA NxG on the GeneXpert Dx System ([employer]). This suggests the absence of MRSA in the patient specimen submitted for testing. This test is cleared by the U.S. Food and Drug Administration for clinical use and its performance characteristics have been verified by the [facility] at [facility]. This result does not rule out the presence of any other organisms. Rare false negative results may occur if MRSA is present at low concentrations with much higher concentrations of other organisms including MRSE or S. aureus with an empty SCC cassette. [facility] Comment: [VERIFIED DATE]11.01.23 Verified By:Marisela Jolly (Electronic Signature) Nasopharyngeal Swab 10/31/19 6:10 PM EDT 11/01/2023 8:24 AM EDT Comment:Specimen Type->Nasop haryngeal Swab Narrative Resulting Agency Comment Spec In Lab Isaiah Samayoa MD MOLECULAR ORDERABLES [facility] [place] [address] * (ABNORMAL) Sedimentation rate (10/31/2023 4:47 AM EDT) Only the most recent of4 resultswithin the time period is included. Sedimentation Rate Automated 113(H) 2 - 37 mm/hr [facility] Comment: Effective April 06, 2019 new capillary photometric technology has resulted in a change in reference ranges. It is recommended that each ESR result be reviewed with its own age appropriate reference range. Blood 10/31/2023 4:47 AM EDT 10/31/2023 4:55 AM EDT Narrative Resulting Agency Comment Spec In Lab Sharron Winters MD HEMATOLOGY ORDERABLE S Performing Organization Address [facility] Co de Phone Number [facility] [place] [address] * Magnesium (10/31/2023 4:47 AM EDT) Only the most recent of4 resultswithin the time period is included. Pathologist [facility] Magnesium 0.86 0.69 - 1.07 mmol/L [facility] Blood 10/31/2023 4:47 AM EDT 10/31/2023 4:55 AM EDT Narrative Resulting Agency Comment Spec In Lab Sharron Winters MD CHEMISTRY ORDERABLES Performing Organization Address City/[facility] Co de Phone Number [facility] [place] [address] * (ABNORMAL) Basic Metabolic Panel (non-fasting) (10/31/2023 4:47 AM EDT) Only the most recent of4 resultswithin the time period is included. Pathologist [facility] Glucose 120 65 - 199 mg/dL [facility] Comment:Diabetes: >=200 mg/d L plus symptoms Blood Urea Nitrogen 8 8 - 18 mg/dL [facility] Creatinine 0.27(L) 0.70 - 1.20 mg/dL [facility] Sodium 140 135 - 145 mmol/L [facility] Potassium 3.8 3.5 - 5.0 mmol/L [facility] Comment: Please note: ??Patients with WBC >100,000 may have falsely elevated Potassium levels. ??For accurate Potassium quantification in these patients send serum separator tube (gold top) for subsequent determinations. ??Contact the Clinical Chemistry Laboratory if there are any questions. Chloride 106 98 - 107 mmol/L [facility] Carbon Dioxide 23 22 - 31 mmol/L [facility] Anion Gap 11 5 - 15 mmol/L [facility] Calcium 9.2 8.5 - 10.5 mg/dL [facility] Est [...] [facility] Co de Phone Number [facility] [place] [address] * IR All Drainage Procedures (10/30/2023 3:23 PM EDT) Anatomical Region Laterality Modality X-Ray Angiograph y Narrative 10/30/2023 3:27 PM EDT Table formatting from the original result was not included. Images from the original result were not included. IR PROCEDURE NOTE Procedure: Paraspinal drain placement. Indication for Procedure: Per Tana Olivera is a 28 y.o. female w/ TBI [...] EDT) Anaerobic Culture No anaerobic organisms isolated [facility] Fluid 10/30/2023 3:02 PM EDT 10/30/2023 3:47 PM EDT Comment:Infected seroma/absc ess lower mid posterior presacral region. Fluid culture. Narrative Resulting Agency Comment Spec In Lab Andrade Melvin MD MICROBIOLOGY - GENER AL ORDERABLES [facility] [place] [address] * Body Fluid Culture, Aerobic (10/30/2023 3:02 PM EDT) Body Fluid Culture Rare mixed bacterial morphotypes suggestive of normal cutaneous zenon [facility] Gram Stain Many Neutrophils seen No microorganisms seen. [facility] Fluid 10/30/2023 3:02 PM EDT 10/30/2023 3:47 PM EDT Comment:Infected seroma/absc ess lower mid posterior presacral region. Fluid culture. Narrative Resulting Agency Comment Spec In Lab Andrade Melvin MD MICROBIOLOGY - GENER AL ORDERABLES Performing Organization Address City/[facility]/ZIP Co de Phone Number [facility] [place] [address] * POCT urine (10/29/2023 10:26 AM EDT) POC Urine HCG Negative POC Control Internal Controls Acceptable 10/29/2023 10:2 6 AM EDT Sharron Winters MD POINT OF CARE TEST O RDERABLES * Lactate, whole blood, send to lab ([facility]) (10/29/2023 8:37 AM EDT) Lactate WB 1.8 0.5 - 2.2 mmol/L [facility] Blood 10/29/2023 8:37 AM EDT 10/29/2023 8:47 AM EDT Narrative Resulting Agency Comment Spec In Lab Brennan Maldonado MD CHEMISTRY ORDERABLE S Performing Organization Address City/[facility]/ZIP Co de Phone Number [facility] [place] [address] * Phosphorus (10/29/2023 8:37 AM EDT) Only the most recent of2 resultswithin the time period is included. Phosphorus 3.6 2.5 - 4.5 mg/dL [facility] Blood 10/29/2023 8:37 AM EDT 10/29/2023 8:47 AM EDT Narrative Resulting Agency Comment Spec In Lab Brennan Maldonado MD CHEMISTRY ORDERABLE S Performing Organization Address [facility] Co de Phone Number [facility] [place] [address] * (ABNORMAL) Urinalysis Microscopic Exam (10/29/2023 2:33 AM EDT) RBC, Urine >100(H) 0 - 4 /HPF [facility] WBC, Urine 4 0 - 5 /HPF [facility] Squamous Epithelial Cells Raw Data, Urine 4 <=4 /HPF [facility] Hyaline Casts, Urine <1 0 - 2 /LPF [facility] Comment: Interpret results with caution, microscopic results are from suboptimal specimen volume Straight Catheter Urine 10/29/2023 2:33 AM EDT 10/29/2023 2:43 AM EDT Narrative Resulting Agency Comment Spec In Lab Sharron Winters MD URINE ORDERABLES Performing Organization Address [facility]/ZIP Co de Phone Number [facility] [place] [address] * (ABNORMAL) Urinalysis with reflex Culture (10/29/2023 2:33 AM EDT) Glucose, Urine Dipstick Negative Negative mg/dL [facility] Protein, Urine Dipstick 30(A) Negative mg/dL [facility] Bilirubin, Urine Dipstick Negative Negative mg/dL [facility] Comment: Clinical correlation required for positive Urine Bilirubin results as false positive may occur with some drugs and drug related products. If a false positive is suspected a serum total bilirubin should be considered if clinically indicated. Urobilinogen, Urine Dipstick Normal Normal mg/dL [facility] pH, Urn (dipstick) 6.5 5.0 - 8.0 [facility] Blood, Urine Dipstick Large(A) Negative mg/dL [facility] Ketone, Urine Dipstick Negative Negative mg/dL [facility] Nitrite, Urine Dipstick Negative Negative [facility] Leukocytes, Urine Dipstick Negative Negative mcL [facility] Appearance, Urine Dipstick Clear Clear [facility] Specific [place] Urine Automated >=1.030(A) 1.005 - 1.030 [facility] Color, Urine Dipstick Yellow Yellow [facility] Reflex to Culture No [facility] Straight Catheter Urine 10/29/2023 2:33 AM EDT 10/29/2023 2:43 AM EDT Narrative Resulting Agency Comment Spec In Lab Sharron Winters MD URINE ORDERABLES [facility] [place] [address] * CT Lumbar Spine w Contrast (10/28/2023 9:50 PM EDT) WORKSTATION ID [id number] RAD Anatomical Region Laterality Modality L-spine Computed [...] have questions please contact the health director long term care that requested your imaging first. ? [...] who have questions please contactthe health director long term care that requested your imaging first. 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
--- OUTSIDE RECORDS SUMMARY | 2024-01-12 21:13 | XMS_ITS | Encounter Summary ---
Author Organization [facility] [address] Care Team Providers Care Info Print Press Operator Name Role Phone Lorna Bal APRN Primary Care Provider [phone] Encounter Details Date Type Department Care Team (Latest Contact Info) Description 10/28/2023 Travel Social History Tobacco Use Types Packs/Day Years Used Date Smoking Tobacco: Never Passive Smoke Exposure: Never Smokeless Tobacco: Never Comments:NO SMOKERS IN THE H OME Alcohol Use Standard Drinks/Week Comments No 0 (1 standard drink = 0.6 oz pur e alcohol) [facility] Utilities Answer Date Recorded In the past 12 months has e TabbedOut, gas, oil, or water Mindie threatened to shut off services in your [...] PM EST Office [place] [address] Hollie Ambriz MD [facility] [address] [place] [address] documented as of this encounter Visit Diagnoses Not on filedocumented in this encounter Care Teams Info Print Press Operator Relationship Specialty Start Date End Date Lorna Bal APRN [address] [place] [address] PCP - General Family Medicine 05/27/18 documented as of this encounter
--- OUTSIDE RECORDS SUMMARY | 2024-01-12 21:13 | XMS_ITS | Encounter Summary ---
Author Organization [facility] [place] [address] Care Team Providers Care Vocational Rehabilitation Consultant Name Role Phone Lorna Bal APRN Primary Care Provider [phone] Encounter Details Date Type Department Care Team [...] at [facility] [place] [id number] Hollie Ambriz MD [facility] [place] [address] documented as of this encounter Visit Diagnoses Not on filedocumented in this encounter Care Teams Vocational Rehabilitation Consultant Relationship Specialty Start Date End Date Lorna Bal APRN [address] [place] [address] PCP - General Family Medicine 05/27/18 documented as of this encounter
--- OUTSIDE RECORDS SUMMARY | 2024-01-12 21:13 | XMS_ITS | Encounter Summary ---
[place] [address] Care Team Providers Care Heeler Machine Name Role Phone Lorna Bal APRN Primary Care Provider +1 -[phone] Encounter Details Date Type Department Care Team [...] PM EST Office [place] [phone] Hollie Ambriz MD [facility] [place] [address] documented as of this encounter Visit Diagnoses Not on filedocumented in this encounter Care Teams Heeler Machine Relationship Specialty Start Date End Date Lorna Bal APRN [address] [place] [address] PCP - General Family Medicine 05/27/18 documented as of this encounter
--- OUTSIDE RECORDS SUMMARY | 2024-01-12 21:13 | XMS_ITS | Encounter Summary ---
Author Organization [facility] Address [facility] [place] [address] Care Team Providers Care Brass Buffer Name Role Phone Lorna Bal APRN Primary Care Provider +1 -[phone] Encounter Details Date Type Department Care Team (Late st Contact Info) Description 10/28/2023 Telephone [place] [address] Neva Thorpe, RN Social History Tobacco Use Types Packs/Day Years Used Date Smoking Tobacco: Never Passive Smoke Exposure: Never Smokeless Tobacco: Never Comments:NO SMOKERS IN THE H OME Alcohol Use Standard Drinks/Week Comments No 0 (1 standard drink = 0.6 oz pur e alcohol) [facility] Utilities Answer Date Recorded In the past 12 months has e [employer], gas, oil, or water [employer] threatened to shut off services in your [...] any time in the past 12 m [facility], were you homeless or living in [...] PM EST Office [place] [phone] Hollie Ambriz MD [facility] [place] [address] documented as of this encounter Visit Diagnoses Not on filedocumented in this encounter Care Teams Brass Buffer Relationship Specialty Start Date End Date Lorna Bal APRN [address] [place] [address] PCP - General Family Medicine 05/27/18 documented as of this encounter
--- OUTSIDE RECORDS SUMMARY | 2024-01-12 21:13 | XMS_ITS | Encounter Summary ---
Author Organization [facility] Address [facility] [place] [address] Care Team Providers Care Nibbler Operator Name Role Phone Lorna Bal APRN Primary Care Provider +1 -[phone] Encounter Details Date Type Department Care Team (Latest Contact Info) Description 12/03/2023 Travel Social History Tobacco Use Types Packs/Day Years Used Date Smoking Tobacco: Never Passive Smoke Exposure: Never Smokeless Tobacco: Never Comments:NO SMOKERS IN THE H OME Alcohol Use Standard Drinks/Week Comments No 0 (1 standard drink = 0.6 oz pur e alcohol) [facility] Utilities Answer Date Recorded In the past 12 months has e [employer], gas, oil, or water [employer] threatened to shut off services in your [...] PM EST Office [place] [address] Hollie Ambriz MD [facility] [place] [address] documented as of this encounter Visit Diagnoses Not on filedocumented in this encounter Care Teams Nibbler Operator Relationship Specialty Start Date End Date Lorna Bal APRN [address] [place] [address] PCP - General Family Medicine 05/27/18 documented as of this encounter
--- OUTSIDE RECORDS SUMMARY | 2024-01-12 21:13 | XMS_ITS | Encounter Summary ---
Author Organization [facility] Address [facility] [place] [address] Care Team Providers Care Automation Engineer Name Role Phone Lorna Bal APRN Primary Care Provider +1 -[phone] Encounter Details Date Type Department Care Team (Late st Contact Info) Description 10/28/2023 Telephone [place] [address] Neva Thorpe, RN Social History Tobacco Use Types Packs/Day Years Used Date Smoking Tobacco: Never Passive Smoke Exposure: Never Smokeless Tobacco: Never Comments:NO SMOKERS IN THE H OME Alcohol Use Standard Drinks/Week Comments No 0 (1 standard drink = 0.6 oz pur e alcohol) [facility] Utilities Answer Date Recorded In the past 12 months has e [employer], gas, oil, or water [employer] threatened to shut off services in your [...] any time in the past 12 m [facility], were you homeless or living in [...] PM EST Office [place] [address] Hollie Ambriz MD [facility] [place] [address] documented as of this encounter Visit Diagnoses Not on filedocumented in this encounter Care Teams Automation Engineer Relationship Specialty Start Date End Date Lorna Bal APRN [address] [place] [address] PCP - General Family Medicine 05/27/18 documented as of this encounter
--- OUTSIDE RECORDS SUMMARY | 2024-01-12 21:13 | XMS_ITS | Encounter Summary ---
Author Organization Counts Include [facility] Address [facility] [place] [address] Care Team Providers Care Steep Tender Name Role Phone Lorna Bal APRN Primary Care Provider +1 -[phone] Encounter Details Date Type Department Care Team (Late st Contact Info) Description 12/02/2023 Orders Only [place] [address] Hollie Ambriz MD [facility] [place] [address] Spinal abscess; Bacteremia Social History Tobacco Use Types Packs/Day Years Used Date Smoking Tobacco: Never Passive Smoke Exposure: Never Smokeless Tobacco: Never Comments:NO SMOKERS IN THE H OME Alcohol Use Standard Drinks/Week Comments No 0 (1 standard drink = 0.6 oz pur e alcohol) [facility] Utilities Answer Date Recorded In [...] time in the past [address] [facility], were you homeless or living [...] PM EST Office [place] [address] Hollie Ambriz MD [facility] [place] [address] Scheduled Orders Name Type Priority Associated Diagnoses [...] Bacteremia documented in this encounter Care Teams Steep Tender Relationship Specialty Start Date End Date Lorna Bal APRN [address] [place] [address] PCP - General Family Medicine 05/27/18 documented as of this encounter
--- OUTSIDE RECORDS SUMMARY | 2024-01-12 21:13 | XMS_ITS | Encounter Summary ---
Author Organization [facility] Address [facility] [place] [address] Care Team Providers Care Cardiovascular Rn Name Role Phone Lorna Bal APRN Primary Care Provider +1 -[phone] Encounter Details Date Type Department Care Team (Late st Contact Info) Description 09/28/2023 Orders Only [place] [address] Hollie Ambriz MD [facility] [place] [address] group home 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; Spinal abscess; Acute [...] EST Office Visit [place] [address] Hollie Ambriz MD [facility] [place] [address] documented as of this encounter 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
--- OUTSIDE RECORDS SUMMARY | 2024-01-12 21:13 | XMS_ITS | Encounter Summary ---
Author Organization [facility] Address [facility] [place] [address] Care Team Providers Care Copper Miner Name Role Phone Lorna Bal APRN Primary Care Provider +1 -[phone] Encounter Details Date Type Department Care Team (Late st Contact Info) Description 11/09/2023 Telephone [place] [address] Yas Tracy, RN Social History Tobacco Use Types Packs/Day Years Used Date Smoking Tobacco: Never Passive Smoke Exposure: Never Smokeless Tobacco: Never Comments:NO SMOKERS IN THE H OME Alcohol Use Standard Drinks/Week Comments No 0 (1 standard drink = 0.6 oz pur e alcohol) [facility] Utilities Answer Date Recorded In the past 12 months has e electric, gas, oil, or water [employer] threatened to shut off services in your [...] any time in the past 12 m [facility], were you homeless or living [...] PM EST Office [place] [address] Hollie Ambriz MD [facility] [place] [address] documented as of this encounter Visit Diagnoses Not on filedocumented in this encounter Care Teams Copper Miner Relationship Specialty Start Date End Date Lorna Bal APRN [address] [place] [address] PCP - General Family Medicine 05/27/18 documented as of this encounter
--- OUTSIDE RECORDS SUMMARY | 2024-01-12 21:13 | XMS_ITS | Encounter Summary ---
Author Organization [facility] Address [facility] [place] [address] Care Team Providers Care Accounts Receivable Assistant Name Role Phone Lorna Bal APRN Primary Care Provider +1 -[phone] Reason for Visit * Reason Onset Date Comments Other 12/15/2023 Encounter Details Date Type Department Care Team (Late st Contact Info) Description 12/15/2023 Telephone [place] [address] Hollie Ambriz MD [facility] [place] [address] Other Social History Tobacco Use Types Packs/Day Years Used Date Smoking Tobacco: Never Passive Smoke Exposure: Never Smokeless Tobacco: Never Comments:NO SMOKERS IN THE H OME Alcohol Use Standard Drinks/Week Comments No 0 (1 standard drink = 0.6 oz pur e alcohol) [facility] Utilities Answer Date Recorded In the past 12 months has [employer], gas, oil, or water company threatened to [...] in a prison (including now)? No 10/29/2023 IPV Inpatient Questions [...] Relationship to Patient (if other than self):other [facility] Callback number: [phone] Best time you are available: Any Route Per Clinic Coverage Page documented in this encounter Plan of Treatment Upcoming Encounters Date Type Department Care Team (Late st Contact Info) Description 06/02/2024 12:30 PM EST Office Visit [place] [address] Hollie Ambriz MD [facility] [place] [address] documented as of this encounter Visit Diagnoses Not on filedocumented in this encounter Care Teams Accounts Receivable Assistant Relationship Specialty Start Date End Date Lorna Bal, [place] [address] [place] [address] PCP - General Family Medicine 05/27/18 documented as of this encounter
--- OUTSIDE RECORDS SUMMARY | 2024-01-12 21:13 | XMS_ITS | Encounter Summary ---
Author Organization [facility] Address [facility] [place] [address] Care Team Providers Care Elementary School Professional Name Role Phone Lorna Bal APRN Primary Care Provider +1 -[phone] Encounter Details Date Type Department Care Team (Late st Contact Info) Description 12/03/2023 Notes [place] [address] Mesha Mckeon, RN Social History Tobacco Use [...] has e electric, gas, oil, or water [employer] threatened to shut off services in your [...] time in the past 12 m [facility], were you homeless or living in [...] PICC Order Faxed d/c PICC order to [facility] on 12/02 at 1645 Confirmed fax on 12/02 at 1650 documented in this encounter Plan of Treatment Upcoming Encounters Date Type Department Care Team (Late st Contact Info) Description 06/02/2024 12:30 PM EST Office [place] [address] Hollie Ambriz MD [facility] [address] documented as of this encounter Visit Diagnoses Not on filedocumented in this encounter Care Teams Elementary School Professional Relationship Specialty Start Date End Date Lorna Bal APRN [address] [place] [address] PCP - General Family Medicine 05/27/18 documented as of this encounter
--- OUTSIDE RECORDS SUMMARY | 2024-01-12 21:13 | XMS_ITS | Encounter Summary ---
[place] [address] Care Team Providers Care Plater Barrel Name Role Phone Lorna Bal APRN Primary Care Provider +1 -[phone] Encounter Details Date Type Department Care Team (Late st Contact Info) Description 12/03/2023 1:45 PM EDT Laboratory Appointment Lab [address] [place] [address] Social History Tobacco Use Types Packs/Day Years Used Date Smoking Tobacco: Never Passive Smoke Exposure: Never Smokeless Tobacco: Never Comments:NO SMOKERS IN THE H OME Alcohol Use Standard Drinks/Week Comments No 0 (1 standard drink = 0.6 oz pur e alcohol) [facility] Utilities Answer Date Recorded In the past 12 months has [employer], gas, oil, or water [employer] threatened to shut off services in your [...] any time in the past 12 m [facility], were you homeless or living in a alf (including now)? No 10/29/2023 IPV Inpatient Questions [...] PM EST Office [place] [address] Hollie Ambriz MD [facility] [place] [address] documented as of this encounter Visit Diagnoses Not on filedocumented in this encounter Care Teams Plater Barrel Relationship Specialty Start Date End Date Lorna Bal APRN [address] [place] [address] PCP - General Family Medicine 05/27/18 documented as of this encounter
--- OUTSIDE RECORDS SUMMARY | 2024-01-12 21:13 | XMS_ITS | Encounter Summary ---
Author Organization [facility] Address [facility] [place] [address] Care Team Providers Care Unit Technician Name Role Phone Lorna Bal APRN Primary Care Provider +1 -[phone] Encounter Details Date Type Department Care Team (Late st Contact Info) Description 12/14/2023 Notes [place] [address] Mesha Mckeon, RN Social History Tobacco Use Types Packs/Day Years Used Date Smoking Tobacco: Never Passive Smoke Exposure: Never Smokeless Tobacco: Never Comments:NO SMOKERS IN THE H OME Alcohol Use Standard Drinks/Week Comments No 0 (1 standard drink = 0.6 oz pur e alcohol) [facility] Utilities Answer Date Recorded In the past 12 months has e electric, gas, oil, or water [employer] threatened to shut off services in your [...] any time in the past 12 m [facility], were you homeless or living [...] on 12/11/23 PICC line was removed by [facility] documented in this encounter Plan of Treatment Upcoming Encounters Date Type Department Care Team (Late st Contact Info) Description 06/02/2024 12:30 PM EST Office Visit Infectious Disease at [facility] [place] [address] Hollie Ambriz MD [facility] [place] [address] documented as of this encounter Visit Diagnoses Not on filedocumented in this encounter Care Teams Unit Technician Relationship Specialty Start Date End Date Lorna Bal APRN [address] [place] [address] PCP - General Family Medicine 05/27/18 documented as of this encounter
--- OUTSIDE RECORDS SUMMARY | 2024-01-12 21:13 | XMS_ITS | Encounter Summary ---
[place] [address] Care Team Providers Care Senior Data Warehouse Developer Name Role Phone Lorna Bal APRN Primary Care Provider +1 -[phone] Reason for Referral * Occupational Therapy (Routine) - Closed Specialty Diagnoses / Procedures Referred By Contmonica t Referred To Contact Occupational Therapy Diagnoses Chronic pain of right thumb Lucho Foster MD [facility] [place] [address] [facility] [place] [address] Referral ID Status Reason Start Date Expiration Date V isits Requested Visits Authorized [id number] Closed Consult Only 09/29/2023 09/28/2024 30 30 * Physical Therapy (Routine) - Authorized Specialty Diagnoses / Procedures Referred By Contac t Referred To Contact Physical Therapy Diagnoses Chronic pain of right thumb Lucho Foster MD [facility] [place] [address] Referral ID Status Reason Start Date Expiration Date Visits Requested Visits Authorized [id number] Authorized Evaluate and Treat 09/29/2023 03/27/2024 12 12 Reason for Visit * Reason Comments Establish Care CONTRACTURE OF R VIKAS MB NO KNOWN INJURY Hx OF RELEASE DOS: ([facility]) CRISTELA * Consultation (Routine) - Authorized Specialty Diagnoses / Procedures Referred By Contac t Referred To Contact Orthopaedics Diagnoses Contracture of joint of hand, 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 Lorna Bal APRN [address] [place] [address] [facility] [address] [place] [phone] Referral ID Status Reason Start Date Expiration Date Visits Requested Visits Authorized [id number] Authorized Consult, Test & Treat PCP Updated and/or Approved 08/03/2023 08/02/2024 6 6 Encounter Details Date Type Department Care Team (Latest Contact Info) Description 09/29/2023 10:30 AM EDT [place] [address] Chuckie Mayfield MD [facility] [place] [address] Chronic pain of right thumb; 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 Living situation: dual housing with two time motion analyst caregivers. Fannie is Guardian. Thumb in palm [...] [Transparent Dressings] Itching and Dermatitis Please use [id number] Cyclobenzaprine Other Reaction(s): Not available Doxycycline Other (See Comments) Cough, rash Penicillins Social history: Social History Tobacco Use Smoking status: Never Passive exposure: Never Smokeless tobacco: Never Tobacco comments: NO SMOKERS IN THE HOME Substance Use Topics Alcohol use: No Occupation: disabled Questionnaire Responses: 03/18/2019 [facility] Surgical Postop Visit PROMIS-10 General Health [...] PM EST Office [place] [address] Hollie Ambriz MD [facility] [place] [address] Scheduled Referrals Name Type Priority Associated Diagnoses [...] unspecified documented in this encounter Care Teams Senior Data Warehouse Developer Relationship Specialty Start Date End Date Lorna Bal, QUANTITATIVE DEVELOPER [address] [place] [address] PCP - General Family Medicine 05/27/18 documented as of this encounter
--- OUTSIDE RECORDS SUMMARY | 2024-01-12 21:13 | XMS_ITS | Encounter Summary ---
Author Organization [facility] Address 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 Social History Tobacco Use Types Packs/Day Years Used Date Smoking Tobacco: Never Passive Smoke Exposure: Never Smokeless Tobacco: Never Comments:NO SMOKERS IN THE H OME Alcohol Use Standard Drinks/Week Comments No 0 (1 standard drink = 0.6 oz pur e alcohol) [facility] Utilities Answer Date Recorded In [...] PM EST Office [place] [address] Hollie Ambriz MD [facility] [place] [address] Scheduled Orders Name Type Priority Associated Diagnoses Orde r Schedule Cath, Percutaneous Central Cath Removal (PICC) Procedures Routine Spinal abscess 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
--- OUTSIDE RECORDS SUMMARY | 2024-01-12 21:13 | XMS_ITS | Encounter Summary ---
Author Organization [facility] [place] [address] Care Team Providers Care Intellectual Property Paralegal Name Role Phone Lorna Bal APRN Primary Care Provider +1 -[phone] Encounter Details Date Type Department Care Team (Late st Contact Info) Description 10/27/2023 Telephone [place] [address] Halima García Social History Tobacco Use Types Packs/Day Years Used Date Smoking Tobacco: Never Passive Smoke Exposure: Never Smokeless Tobacco: Never Comments:NO SMOKERS IN THE H OME Alcohol Use Standard Drinks/Week Comments No 0 (1 standard drink = 0.6 oz pur e alcohol) [facility] Inpatient Questions Answer Date Recorded [...] Halima García - 10/27/2023 10:23 AM EDT lead oxide mill tender (josy) called stating the patient's infection has returned in her back. They are requesting an order for a aspiration to be put in. documented in this encounter Plan of Treatment Upcoming Encounters Date Type Department Care Team (Late st Contact Info) Description 06/02/2024 12:30 PM EST Office [place] [address] Hollie Ambriz MD [facility] [place] [address] documented as of this encounter Visit Diagnoses Not on filedocumented in this encounter Care Teams Intellectual Property Paralegal Relationship Specialty Start Date End Date Lorna Bal APRN [address] [place] [address] PCP - General Family Medicine 05/27/18 documented as of this encounter
--- OUTSIDE RECORDS SUMMARY | 2024-01-12 21:13 | XMS_ITS | Encounter Summary ---
Author Organization [facility] Address [facility] [place] [address] Care Team Providers Care Database Modeler Name Role Phone Lorna Bal APRN Primary Care Provider [phone] Encounter Details Date Type Department Care Team (Late st Contact Info) Description 11/25/2023 2:00 PM EDT TH Visit (TeleHealth) [place] [phone] Lilli Joy APRN [facility] [place] [address] Osteomyelitis, unspecified site, unspecified type; Hardware complicating wound infection, subsequent encounter; senior living 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 Social History Tobacco Use Types Packs/Day Years Used Date Smoking Tobacco: Never Passive Smoke Exposure: Never Smokeless Tobacco: Never Comments:NO SMOKERS IN THE H OME Alcohol Use Standard Drinks/Week Comments No 0 (1 standard drink = 0.6 oz pur e alcohol) [facility] Utilities Answer Date [...] her ID Attending, Dr. Ambriz: ...admitted to [facility] in May 2022 for redness and tenderness [...] drain site, for which shewas readmitted to [facility] on 07/22 to manage this issue. On arrival to [facility], she was afebrile without leukocytosis. Repeat of [...] evaluated by spine surgery multiple times at [facility] and was not deemed a candidate for [...] opinion at [facility] in [place] given the need for plastics closure of [...] [Transparent Dressings] Itching and Dermatitis Please use [id number] Cyclobenzaprine Other Reaction(s): Not available Doxycycline Other [...] visit needs to be scheduled - ID ward secretary notified Patient's ID Attending, Dr. Ambriz, aware of above I spent a total of 30 minutes with the patient, including my review of medical records prior to thevisit, [id number] evaluation and counseling, clinical decision making, coordination of care and documentation. 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
--- OUTSIDE RECORDS SUMMARY | 2024-01-12 21:13 | XMS_ITS | Encounter Summary ---
Author Organization [facility] Address [facility] [place] [address] Care Team Providers Care Html Developer Name Role Phone Lorna Bal APRN Primary Care Provider [phone] Encounter Details Date Type Department Care Team (Late st Contact Info) Description 10/27/2023 Telephone [place] [phone] Nikolay Toledo MD [facility] [place] [address] Social History Tobacco Use Types Packs/Day Years [...] in a detention (including now)? No 10/29/2023 [facility] Inpatient Questions Answer Date Recorded [...] shared plan of obtaining labs locally at [facility] and ideally coordinating a CT L-spine at [facility], followed by potential IR aspiration if a collection has reaccumulated. Ideally this would all be done before antibiotics are restarted in order to increase yield of cultures. Nikolay Toledo MD Staff Physician in Infectious Diseases documented in this encounter Plan of Treatment Upcoming Encounters Date Type Department Care Team (Late st Contact Info) Description 06/02/2024 12:30 PM EST Office [place] [address] Nikolay Toledo MD [facility] [address] INFECT[place] [address] Scheduled Orders Name Type Priority Associated Diagnoses [...] site documented in this encounter Care Teams Html Developer Relationship Specialty Start Date End Date Lorna Bal APRN [address] [place] [address] PCP - General Family Medicine 05/27/18 documented as of this encounter
--- OUTSIDE RECORDS SUMMARY | 2024-01-12 21:13 | XMS_ITS | Encounter Summary ---
Author Organization [facility] Address [facility] [place] [address] Care Team Providers Care Deck Cadet Name Role Phone Lorna Bal APRN Primary Care Provider [phone] Encounter Details Date Type Department Care Team (Late st Contact Info) Description 10/28/2023 Telephone [place] [address] Neva Thorpe, RN Social History Tobacco Use Types Packs/Day Years Used Date Smoking Tobacco: Never Passive Smoke Exposure: Never Smokeless Tobacco: Never Comments:NO SMOKERS IN THE H OME Alcohol Use Standard Drinks/Week Comments No 0 (1 standard drink = 0.6 oz pur e alcohol) [facility] Utilities Answer Date Recorded In the past 12 months has e [employer], gas, oil, or water [employer] threatened to shut off services in your [...] back ot to Fannie: Labs drawn at [facility] today-waiting for results Area still on [...] Fannie being the contact on the [facility] portal. 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 Plan: Fannie will call back once she has the lab results. Will call to schedule CT Scan. Fannie understands that the department is closed tomorrow for the holiday. This RN explained how to reach the provider drilling field professional if necessary. Will review with Dr Hollie Ambriz 10/28/2023 1634 [facility] faxing labs over. Fannie states she is bringing Tana into the ER here at to be evaluated. Dr Ambriz updated documented in this encounter Plan of Treatment Upcoming Encounters Date Type Department Care Team (Late st Contact Info) Description 06/02/2024 12:30 PM EST Office Visit [place] [address] Hollie Ambriz MD [facility] [place] [address] documented as of this encounter Visit Diagnoses Not on filedocumented in this encounter Care Teams Deck Cadet Relationship Specialty Start Date End Date Lorna Bal APRN [address] [place] [address] PCP - General Family Medicine 05/27/18 documented as of this encounter
--- OUTSIDE RECORDS SUMMARY | 2024-01-12 21:13 | XMS_ITS | Encounter Summary ---
Author Organization [place] [address] Care Team Providers Care Power Cleaner Operator Name Role Phone Lorna Bal APRN Primary Care Provider [phone] Reason for Referral * Consultation (Routine) - Closed Specialty Diagnoses / Procedures Referred By Contac t Referred To Contact Infectious Diseases Diagnoses Spinal abscess Hollie Ambriz MD [facility] [place] [address] Hollie Ambriz MD [facility] [place] [address] Referral ID Status Reason Start Date Expiration Date V isits Requested Visits Authorized [id number] Closed Assume Subset of Care 11/02/2023 11/01/2024 1 1 * Home Health Care (Routine) - Authorized Specialty Diagnoses / Procedures Referred By Contac t Referred To Contact Diagnoses Spinal abscess Wally Rosen MD [facility] [address] [facility] & [address] [place] [address] Referral ID Status Reason Start Date Expiration Date Visits Requested Visits Authorized [id number] Authorized Consult, Test & Treat 11/03/2023 05/01/2024 999 999 * Diagnostic Test (Routine) - Closed Specialty Diagnoses / Procedures Referred By Contac t Referred To Contact Radiology Diagnoses Abscess Procedures IR Drain Check/Change/Remove Andrade Melvin MD [facility] DR [place] [address] [place] [address] Referral ID Status Reason Start Date Expiration Date V isits Requested Visits Authorized [id number] Closed Specialty Service Requested 10/30/2023 05/01/2025 1 1 Reason for Visit * Reason Comments Abscess In back * Auth/Cert (Routine) Specialty Diagnoses / Procedures Referred By Contac t Referred To Contact Diagnoses Abscess Procedures EMERGENCY IPI Sharron Winters MD [facility] [place] [address] [facility] Referral ID Status Reason Start Date Expiration Date Visits Re quested Visits Authorized [id number] 1 1 Encounter Details Date Type Department Care Team (Latest Contact Info) Description 10/28/2023 8:05 PM EDT - 11/03/2023 5:25 PM EDT Hospital Encounter Medical Specialites Unit Level 1 [place] [address] Siomara Hernandez MD [facility] [place]ER[place]ENC[place] [address] Andrade Ocampo MD [facility] [place] [address] [place] [address] [place] [address] [place] [address] Abscess; Spinal abscess Discharge Disposition: Home with VNA Social History Tobacco Use Types Packs/Day Years Used Date Smoking Tobacco: Never Passive Smoke Exposure: Never Smokeless Tobacco: Never Comments:NO SMOKERS IN THE H OME Alcohol Use Standard Drinks/Week Comments No 0 (1 standard drink = 0.6 oz pur e alcohol) [facility] Utilities Answer Date Recorded In the past 12 months has th e [employer], gas, oil, or water [employer] threatened to shut off services in your [...] Tana Cavazos Patient Age: 28 y.o. 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 Issues afterhours and on weekends [...] inflammatory markers. Tana was then brought to [facility], where she has been receiving her medical [...] or performed during the hospital encounter of 07/03/24 CT Lumbar Spine w Contrast (Exam End: 10/28/2023 9:50 PM) Result Value WORKSTATION ID [id number] Impression Focal heterogeneous organizing collection at the [...] who have questions please contact the health intensive care unit nurse that requested your imaging first. Electronically signed by: Enid Vargas MD, [facility] ([phone]), at 10/28/2023 10:17 PM XR Abdomen 1 view (Generic) (Exam End: 11/01/2023 10:14 PM) Result Value WORKSTATION ID [id number] Impression 1. Rectal distention with stool. 2. No evidence of obstruction. 3. Bony demineralization, LEFT hip dysplasia, Mcnair rods, severe scoliosis Thank you for letting us participate in the care of this patient. If you are a health care provider and have any questions regarding this report, please contact the number below. For patients who have questions please contact the health intensive care unit nurse that requested your imaging first. Electronically signed by: Marisela Estrella MD, [facility] ([phone]), at 11/02/2023 8:47 AM XR PICC Placement Over 5 Years with Imaging Guidance (IV Team) (Exam End: 11/03/2023 11:19 AM) Result Value WORKSTATION ID [id number] Impression Satisfactory position of left PICC. I [...] who have questions please contact the health intensive care unit nurse that requested your imaging first. Electronically signed by: Deb Avery MD, [facility] ([phone]), at 11/03/2023 11:55 AM Pending Studies and Lab Data: none Discharge Conditions/Prognosis: stable Discharge to: home with OPAT Updated Allergies/ADRs: Allergies Allergen Reactions Fluoxetine Other (See Comments) HIVES, HEART RACES Tegaderm [Transparent Dressings] Itching and Dermatitis Please use [id number] Cyclobenzaprine Other Reaction(s): Not available Doxycycline Other (See Comments) Cough, rash Penicillins Immunizations Given this Hospitalization: Immunization History Administered Date(s) Administered Influenza (Novel X4S9-07) Injectable 02/25/2009 Influenza Trivalent w/Preservative 04/25/2011 Influenza [...] for 6 weeks Your Inpatient Doctor(s) at [facility]: Paola Carrington and Danita General Instructions None Future Appointments and Orders Future Appointments and Orders Future Appointments Provider Department Dept Phone 11/30/2023 12:50 PM [facility] IR ROOM 4 Radiology at [facility] Arrive at: [facility] [phone] Please expect a call from a radiology nurse within 3 days of your exam, you will need to follow theinstructions given at that time. Future Orders Complete By Expires IR Drain Check/Change/Remove [[id number] Custom] 11/30/2023 (Approximate) 05/31/2024 Process Instructions: Scheduling Instructions: Comments: Questions: Where will study be performed?: [facility] Radiology To be scheduled: Next available [...] Recommendation for Post Discharge IV Antibiotic Management [FMA211 CPT(R)] As directed Process Instructions: If no progress note charted, please enter Clinical details in comments. Scheduling Instructions: Comments: - If this order was signed greater than 72 hours prior to [facility] discharge, please call to confirm the accuracy of this order. Please Fax all results to: [facility]ious Disease Section [facility], [place] [address] FAX: - After hours, please contact the Infectious Disease Physician account retention representative at . - Line care instructions - see flush/heparin orders. Facilities may follow organizational policies/practices regarding heparin. - correction for medication administration/roll forming machine set up mechanic and catheter care/maintenance authorized. - CVC/PICC Dressing Change weekly and PRN Please use CHG or Bio Patch RN: Please care for PICC line including dressing changes weekly and prn. Please draw labs every Thursday and PRN and fax results to OPAT at [phone]. Please draw labs off PICC line. [facility]. Please RN visit for IV ABX teaching and ongoing assessment. Detention for Medication Administration/Hookup and catheter care/maintenance: - Teach Patient/Caregiver goals/self-monitoring/therapy administration to independence per the Nursing Care Plan. - correction visit frequency; initial, weekly and 2 PRN [...] Osteomyelitis and hardware infection of lower mid allergist immunologist to sacral region of spine S/P drain placement on 10/30 Microorganisms being treated: Unknown Special Instructions: After IV ABX, should transition back to retirement suppression with TMP-SMX Antibiotic: Ceftriaxone 2G IV Q24H Start date: 10/30/2023 Anticipated stop date: 12/11/2023 Labs: Q Thursday: CBC/Diff, CMP Q Thursday Inflammatory CRP Attending Responsible for IV Antimicrobials: Hollie Ambriz MD Referral to [facility] [REF34 Custom] As directed Process Instructions: If no progress note charted, please enter Clinical details in comments. Scheduling Instructions: Comments: Please evaluate Tana Cavazos for admission to Home [facility]. [address] [place] [phone] (home) [phone] (work) Date of : 1995 Inpatient DOCUMENTATION FOR VNA SERVICES (INCLUDING THOSE PATIENTS WITH MEDICARE COVERAGE REQUIRING HOME VNA SERVICES AND/OR HOSPICE SERVICES) PATIENT'S LOCATION: Tana Cavazos [address] [place] [phone] (home) Cell: Telephone Information: Casino Floor Runner's Name: Fannie Villarreal (Guardian) [phone] (M) In discussion with the attending physician, it is certified that this patient is under their care and that they, or a Nurse Practitioner, Clinical Nurse specialist or Physician Call Or Contact Centre Operator who is working directly with them, [...] routine PICC care) HOME HEALTH CARE AGENCY: [facility]. [address] [place] [address] START OF CARE: within 24-48 hours of discharge Questions: Disciplines Requested: Nursing Recurring Lab Work Interval Expires CBC (with Diff) [[id number] Custom] Once a week until 01/03/2024 01/03/2024 Process Instructions: Scheduling Instructions: Comments: To be Drawn on Thursday. Please fax orders to [facility] ID at [phone]. Questions: Comprehensive metabolic panel (non-fasting) [[id number] Custom] Once a week until 01/03/2024 01/03/2024 Process Instructions: Scheduling Instructions: Comments: To be Drawn on Thursday. Please fax orders to [facility] ID at [phone]. Questions: CRP, acute inflammation [[id number] Custom] Once a week until 01/03/2024 01/03/2024 Process Instructions: Scheduling Instructions: Comments: To be Drawn on Thursday. Please fax orders to [facility] ID at [phone]. Questions: Discharge References/Attachments None documented in this [...] for 6 weeks Your Inpatient Doctor(s) at [facility]: Paola Carrington and Danita documented in this encounter Medications at Time of Discharge Medication Sig Dispensed Refills Start Date End Date sodium chloride 0.9 %, flush, (BD PosiFlush Normal Saline 0.9) SyringeIndications:Sp inal abscess Inject 10 mLs into the vein as needed (For Line Patency - See Instructions). FLUSH PROTOCOL WITH MEDICATIONS ([facility]): Before med infusion: flush with NS 10 [...] - See Instructions). FLUSH PROTOCOL WITH MEDICATIONS ([facility]): Before med infusion: flush with NS 10 [...] spent >30 minutes (Day of Discharge Code 60299) involved in the final examination of the [...] Rosen MD - 11/02/2023 1:17 PM EDT [facility] Medicine Attending Daily Progress Note Hospital Day [...] minimumof two midnights or is on the [facility] inpatient only procedure list (status [...] 34.8* PLATELET 477* 488* 432* Recent Labs 11/02/23 0510/31/2344610/30/238 10/29/23 0837 10/29/23 0208 NA 138 140 [...] 10/28/2023 9:50 PM) Result Value WORKSTATION ID [id number] Impression Focal heterogeneous organizing collection at the [...] who have questions please contact the health intensive care unit nurse that requested your imaging first. Electronically signed by: Enid Vargas MD, [facility] ([phone]), at 10/28/2023 10:17 PM XR Abdomen 1 view (Generic) (Exam End: 11/01/2023 10:14 PM) Result Value WORKSTATION ID [id number] Impression 1. Rectal distention with stool. 2. No evidence of obstruction. 3. Bony demineralization, LEFT hip dysplasia, Mcnair rods, severe scoliosis Thank you for letting us participate in the care of this patient. If you are a health care provider and have any questions regarding this report, please contact the number below. For patients who have questions please contact the health intensive care unit nurse that requested your imaging first. Electronically signed by: Marisela Estrella MD, [facility] ([phone]), at 11/02/2023 8:47 AM ECG: No results [...] and washout with complex plastics closure at [facility] in [place] on 02/11, after which she was treated [...] which she should likely transition back to extermination inspector suppression with TMP-SMX. Recommendations: - Stop daptomycin - Continue IV ceftriaxone 2g daily for a total of 6 weeks, ending on 12/11/2023 - After finishing above, should transition back to retirement suppression with TMP-SMX - Cleared from ID perspective for PICC placement - Check CBC w/ diff, CMP, and CRP weekly to monitor for clinical progression and antimicrobial toxicity - We will arrange ID follow-up appointment prior to completion of IV ceftriaxone I spent a total of 50 minutes on the [id number]-[id number] encounter, chart review, documentation, and coordination of [...] minimumof two midnights or is on the [facility] inpatient only procedure list (status [...] 10/28/2023 9:50 PM) Result Value WORKSTATION ID [id number] Impression Focal heterogeneous organizing collection at the [...] who have questions please contact the health intensive care unit nurse that requested your imaging first. Electronically signed by: Enid Vargas MD, [facility] ([phone]), at 10/28/2023 10:17 PM ECG: No results [...] 10/28/2023 9:50 PM) Result Value WORKSTATION ID [id number] Impression Focal heterogeneous organizing collection at the [...] who have questions please contact the health intensive care unit nurse that requested your imaging first. Electronically signed by: Enid Vargas MD, [facility] ([phone]), at 10/28/2023 10:17 PM ECG: No results [...] check follow up in 4 weeks ordered, meat lugger updated. Willis Calero DO, [facility] Interventional Radiology 10/31/2023 [id number] * Dimple Jimenez RN - 10/30/2023 3:33 PM EDT Called report to EUNICE Kevin at [phone] * Dimple Jimenez RN - 10/30/2023 3:04 PM EDT [facility] Name: Tana Cavazos Date of : 1995 AGE: 28 y.o. Address: [address] [place] [address] (home) [phone] (work) Mobile: Telephone Information: Referring Provider: None [...] [Transparent Dressings] Itching and Dermatitis Please use [id number] Cyclobenzaprine Other Reaction(s): Not available Doxycycline Other [...] minimumof two midnights or is on the [facility] inpatient only procedure list (status [...] 10/28/2023 9:50 PM) Result Value WORKSTATION ID [id number] Impression Focal heterogeneous organizing collection at the [...] who have questions please contact the health intensive care unit nurse that requested your imaging first. Electronically signed by: Enid Vargas MD, [facility] ([phone]), at 10/28/2023 10:17 PM ECG: No results found for: DIAGLINE, QTCCALC * Kristina Rodriguez RN - 10/30/2023 9:26 AM EDT IR for drain placement today for a paraspinal fluid collection; then ID will need to be consulted for results and to decide on OPAT They have requested referrals to: [address] or Note routed to a Engineering Test Mechanic who will communicate referrals to facilities and [...] minimumof two midnights or is on the [facility] inpatient only procedure list (status [...] 10/28/2023 9:50 PM) Result Value WORKSTATION ID [id number] Impression Focal heterogeneous organizing collection at the [...] who have questions please contact the health intensive care unit nurse that requested your imaging first. Electronically signed by: Enid Vargas MD, [facility] ([phone]), at 10/28/2023 10:17 PM ECG: No results [...] Procedure Request: Interventional Radiology Service contacted by [facility] at 12:15 PM regarding the procedure [...] (bilateral); Reconstruc Hip Socket, Resec Fem Head (31370) (08/15/2010); Apply Of Hip Casts, Two Legs (69306) (08/15/2010); Removal Deep Implant (57201) (08/15/2010); Osteotomy Femur Shaft/Supracondy (78421) (2010); Remove Spinal Canal Catheter (25532) (N/A, 05/11/2014); Remove Infusn Device/Pump (08475) (N/A, 05/11/2014); I&D, Post Spine, Lumb/Sacr/Lumbosac (24480) (N/A, 05/20/2014); Repr, Dural/Csf Leak, Not Req Laminectomy (61314) (N/A, 05/20/2014); I&D, Post Spine, Lumb/Sacr/Lumbosac (03367) (N/A, 05/26/2014); Impact Tooth Remov Comp Bony (D7240) (N/A, 06/14/2018); Rem Imp Tooth W Mucoper Flp (D7210) (N/A, 06/14/2018); IR All Drainage Procedures (06/25/2022); IR Drain Check/Change/Remove (07/01/2022); IR All Drainage Procedures (07/04/2022); IR All Drainage Procedures (07/24/2022); IR Drain Check/Change/Remove (08/11/2022); IR Drain Check/Change/Remove (08/25/2022); IR Drain Check/Change/Remove (09/10/2022); IR All Drainage Procedures (09/26/2022); and Colonoscopy, Biopsy (54083) (N/A, 08/05/2023). Medications: Current Outpatient Medications Medication [...] Interventional & Diagnostic Radiology IR Team Pager: [phone] Personal Pager [phone] 10/29/2023 * Sharron Winters MD - 10/29/2023 [...] inflammatory markers. Tana was then brought to [facility], where she has been receiving her medical [...] All Drainage Procedures 06/25/2022 Mich Martino MD [facility] INTERVENTIONL RAD IR ALL DRAINAGE PROCEDURES 07/04/2022 IR All Drainage Procedures 07/04/2022 Mich Martino MD [facility] INTERVENTIONL RAD IR ALL DRAINAGE PROCEDURES 07/24/2022 IR All Drainage Procedures 07/24/2022 Anurag Kumar MD [facility] INTERVENTIONL RAD IR ALL DRAINAGE PROCEDURES 09/26/2022 IR All Drainage Procedures 09/26/2022 Jamaal Jenkins, DO [facility] INTERVENTIONL RAD IR DRAIN CHECK/CHANGE/REMOVE 07/01/2022 IR Drain Check/Change/Remove 07/01/2022 Jamaal Jenkins, DO [facility] INTERVENTIONL RAD IR DRAIN CHECK/CHANGE/REMOVE 08/11/2022 IR Drain Check/Change/Remove 08/11/2022 Piter Self MD [facility] INTERVENTIONL RAD IR DRAIN CHECK/CHANGE/REMOVE 08/25/2022 IR Drain Check/Change/Remove 08/25/2022 Jamaal Jenkins P, DO [facility] INTERVENTIONL RAD IR DRAIN CHECK/CHANGE/REMOVE 09/10/2022 IR Drain Check/Change/Remove 09/10/2022 Mich Martino MD [facility] INTERVENTIONL RAD PRO APPLY OF HIP CASTS, TWO LEGS 08/15/2010 CAST APPLICATION, HIP SPICA, BOTH LEGS performed by BARRERA OLIVER at [facility] MAIN OR PRO COLONOSCOPY, BIOPSY N/A 08/05/2023 COLONOSCOPY FLEXIBLE, WITH BX (WRVU 3.56) performed by Jamar Gastelum MD at [facility] ENDOSCOPY PRO I&D, POST SPINE, LUMB/SACR/LUMBOSAC N/A 05/20/2014 @I & D, OPEN, DEEP ABSCESS, LUMBAR, SACRAL, LUMBOSACRAL performed by Freddy Isbell MD at [facility] MAIN OR PRO I&D, POST SPINE, LUMB/SACR/LUMBOSAC N/A 05/26/2014 @I & D, OPEN, DEEP ABSCESS, LUMBAR, SACRAL, LUMBOSACRAL performed by Freddy Isbell MD at [facility] MAIN OR PRO IMPACT TOOTH REMOV COMP BONY N/A 06/14/2018 SURGICAL EXTRACTIONS, REMOVAL OF IMPACTED TOOTH, COMPLETELY BONY (WRVU 1.93) performed by Keith Cotton MD at [facility] OSC PRO OSTEOTOMY FEMUR SHAFT/SUPRACONDY 08/15/2010 ??OSTEOTOMY, FEMUR SHAFT OR SUPRACONDYLAR W/O FIXATION performed by BARRERA OLIVER at [facility] MAIN OR PRO RECONSTRUC HIP SOCKET, RESEC FEM HEAD 08/15/2010 ??ACETABULOPLASTY (GIRDLESTONE), RESECTION FEMORAL HEAD, BILATERAL performed by BARRERA OLIVER [facility] MAIN OR PRO REMOVAL DEEP IMPLANT 08/15/2010 REMOVAL IMPLANT, DEEP, BRUNO performed by BARRERA OLIVER at [facility] MAIN OR PRO REMOVAL ERUPTED TOOTH WITH ELEVATION OF MUCOPERIOSTEAL FLAP N/A 06/14/2018 SURGICAL EXTRACTIONS REQUIRING ELEVATION OF MUCOPERIOSTEAL FLAP AND REMOVAL OF BONE OR SECTION OF TOOTH (WRVU 1.09) performed by Keith Cotton MD at [facility] OSC PRO REMOVE INFUSN DEVICE/PUMP N/A 05/11/2014 REMOVAL OF SPINE INFUSION PUMP performed by Jamaal Samuel MD at [facility] MAIN OR PRO REMOVE SPINAL CANAL CATHETER N/A 05/11/2014 REMOVAL OF INTRATHECAL OR EPIDURAL CATHETER performed by Jamaal Samuel MD at [facility] MAIN OR PRO REPR, DURAL/CSF LEAK, NOT REQ LAMINECTOMY N/A 05/20/2014 @REPAIR DURAL\CSF LEAK,NOT REQUIRING LAMINECTOMY performed by Freddy Isbell MD at [facility] MAIN OR Prior To Admission Medications: (Not in a hospital admission) Allergies: Allergies Allergen Reactions Fluoxetine Other (See Comments) HIVES, HEART RACES Tegaderm [Transparent Dressings] Itching and Dermatitis Please use [id number] Cyclobenzaprine Other Reaction(s): Not available Doxycycline Other [...] Resource Strain: Low Risk (02/21/2023) Received from [employer] Overall Financial Resource Strain (CARDIA) Difficulty of Paying Living Expenses: Not very hard Food Insecurity: Unknown (02/21/2023) Received from [employer] Hunger Vital Sign Worried About Running Out of Food in the Last Year: Never true Ran Out of Food in the Last Year: Not on file Transportation Needs: No Transportation Needs (02/21/2023) Received from [employer] PRAPARE - Transportation Lack of Transportation (Medical): No Lack of Transportation (Non-Medical): No Physical Activity: Not on file Intimate Partner Violence: Unknown (02/21/2023) Received from [employer] Humiliation, Afraid, Rape, and Kick questionnaire Fear of Current or Ex-Partner: No Emotionally Abused: Not on file Physically Abused: Not on file Sexually Abused: Not on file Housing Stability: Unknown (02/21/2023) Received from [employer] Housing Stability Vital Sign Unable to Pay for Housing in the Last Year: Not on file Number of Places Lived in the Last Year: Not on file Unstable Housing in the Last Year: No Immunizations: Immunization History Administered Date(s) Administered Influenza (Novel D6O3-22) Injectable 02/25/2009 Influenza Trivalent w/Preservative 04/25/2011 Influenza [...] Regular diet DVT Prophylaxis: LMWH Anticipated Disposition: extermination inspector care facility Code Status: Attempt Cardiopulmonary Resuscitation [...] to the planned procedure. Hand Hygiene: The record press operator did perform hand hygiene prior to line insertion. Catheter type: PICC Lot number: [id number] Procedure Technique: Skin was prepped with chlorhexidine. [...] outpatient blood draw. Patient was referred to [facility] by infectious disease for a CT of [...] nursing note reviewed. Exam conducted with a hr advisor present. HENT: Head: Normocephalic and atraumatic. Cardiovascular: [...] who have questions please contact the health intensive care unit nurse that requested your imaging first. Electronically signed by: Enid Vargas MD, [facility] ([phone]), at 10/28/2023 10:17 PM Procedures Assessment and [...] fluid collection treated as likely infections on extermination inspector antibiotics currently Bactrim presenting with about 5 [...] surgery. Initially surgery believed to be at [facility]. Was on antibiotics until a month [...] from the original [place] [address] [facility] Vascular Access Service Peripherally Inserted Central Catheter (PICC) Teaching Sheet Peripherally inserted central catheters (vozd-mo-pozu) (PICC) are used when you need IV [...] midline catheter? PICC lines are used for retirement treatments. PICC lines may be used for [...] can be set up via the nurse Home Service Advisor to help you. What are possible complications [...] Vascular Access Device Selection, Insertion, and Management, [employer] Access Systems 01/29. A Review of the Efficacy, Safety, Use, and Administration of [employer], [employer] 2005 * Plan of Care - Arielle Patino, EUNICE - 11/03/2023 3:34 AM EDT OUTCOME EVALUATION NOTE: OUTCOME SUMMARY: Pt tachy. MD alerted. Otherwise VSS on RA. Pt nonverbal. Unable to answer orientation questions. Call Or Contact Centre Operator at bedside. 1x BM this shift. [...] infusion. Please page the PICC room at [phone] or call [phone] between the hours of 7:00am and 5:30pm Thursday-Thursday for PICC line placement/scheduling. After hours the Vascular Access Service can be reached at anytime on pager [phone] PICCrequests for the following day. [...] Home Health Services: Registered Nurse Agency Referrals: [facility] [address] [place] [id number] [place] [address] or Transportation: family or friend will provide Plan going forward: Care Management will continue to follow and assist with discharge planning and coordination of care as indicated. Anticipated Date of Discharge: 11/06/2023 Kristina Rodriguez RN BSN knitting machine operator [phone] * Plan of Care - Arielle Patino RN - 11/02/2023 5:29 AM EDT OUTCOME EVALUATION NOTE: OUTCOME SUMMARY: Pt VSS on RA. Pt nonverbal. Unable to answer orientation questions. Moans and frowns when in pain. Pain medication given per JUN. Call Or Contact Centre Operator at bedside. 1x BM this shift. [...] - Initial Consultation ID: Tana Cavazos Room: [address] [place] [address] Consulting Service: Hospital Medicine Consulting Attending: Rebel Carrington MD Admission Date: 10/28/2023 Reason for Consult: Recurrent spinal infection HPI: Tana Cavazos is a 28 y.o. female with Hx of cerebral palsy w/ spastic quadriplegia, non-verbal at baseline, as well as prior posterolateral spinal fusion in 2008 and bilateral Girdlestones in 2010, who was admitted to [facility] in May 2022 for redness and tenderness [...] site, for which she was readmitted to [facility] on 07/22 to manage this issue. On arrival to [facility], she was afebrile without leukocytosis. Repeat of [...] evaluated by spine surgery multiple times at [facility] and was not deemeda candidate for operative intervention. Then, she was seen at [facility] for a second surgical opinion. On 08/27/2022, superficialCxs there revealed growth of Staph hemolyticus and capitis. She was initially continued on doxycycline for this but subsequently switched to TMP-SMX in early September 2022 given ?possible allergic reaction. She also did undergo re-insertion of IR drains on 09/26, with Cxs again returning negative. Eventually, she got a third surgical opinion at [facility] in [place] given the need for plastics closure of [...] continued to follow in ID clinic at [facility]. We discussed the equipoise as to whether [...] [Transparent Dressings] Itching and Dermatitis Please use [id number] Cyclobenzaprine Other Reaction(s): Not available Doxycycline Other [...] and washout with complex plastics closure at [facility] on 02/11, after which she [...] a total of 80 minutes on the [id number] encounter, chart review, documentation, and coordination of [...] Appropriate) * Consult Note - Kelly Cummings, [facility] - 10/30/2023 4:10 PM EDT Adden: [...] have. Alternately, during off-hours you may call [phone] to contact a pharmacist. [facility] Pharmacokinetics Note Drug: Vancomycin Pharmacokinetic target: AUC24 (range) 400-600 mg/L.hr Tana Cavazos is a(n) 28 years old female initiating Vancomycin for paraspinal infection, concern forosteo Recent measured serum creatinine values: 10/30/2023 04:48 0.33 mg/dL 10/29/2023 08:37 0.31 mg/dL 10/28/2023 21:00 0.25 mg/dL Assessment: Analysis using LoveSurfX gives the following patient-specific pharmacokinetic parameters: CL: [...] Rounding Note Situation: Asked to see Tana Hayes Dirk by Zakia Mercado RN for low sumit [...] chat or the wound care team at [phone] with skin and wound care concerns or [...] inflammatory markers. Tana was then brought to [facility], where she has been receiving her medical [...] In the past 12 months has the [employer], gas, oil, or water [employer] threatened to shut off services in your [...] as: [address] [facility] [address] Social & Family Supports: All names listed below confirmed with patient as current and correct Extended Emergency Contact Information Primary Emergency Contact: [place] [address] [facility] Mobile Relation: Guardianship Secondary Emergency Contact: Fernanda Sorensen Mobile Relation: Paid Caregiver Mother: MaurilioKrmark Julia Javed Address: [address] [address] [facility] Home Phone: [phone] Mobile Current Care Provided by: other (see comments) Provides Primary Care For: no one, unable/limited ability to care for self Caregiver if needed: other (see comments) (Fannie and Fernanda) Quality of Family relationships: helpful, supportive, involved Community Resources being provided currently: homecare agency ([facility] for blood draws.) Behavioral Health [...] Insurance: N/A Prescription Coverage: Yes Preferred Pharmacy: [facility] Home Delivery [facility] [address] [facility] [address] [facility] [address] [facility] [address] [address] Status: Patient is a : No Primary Care Provider confirmed: Lorna Bal, DIESEL TECHNICIAN MECHANIC [phone] Patient/Caregiver Goals of Treatment: Fannie anticipates pt to return home upon discharge. Potential Needs for Transition of Care: home health care Agency Referrals: I have met with the senior human resources representative to: discuss discharge planning needs. provide the [facility], Office of Care Management letter from the Contact Center Rep pertaining to rehab referrals. provide a letter describing our affiliations within the [facility] and educate about their right to choose where referrals are sent. provide a list of Home Health Agencies / Durable Medical Equipment vendors which serve their preferred geographic area. provided patient with [facility] Star Quality Rating handout. They have requested referrals to: [facility]. [address] [place] [address] Note routed to a Engineering Test Mechanic who will communicate referrals to facilities and [...] care as indicated. Alicja Franklin RN, BSN, ACM-WATER/WASTEWATER PROJECT MANAGERarchival records clerk Office of Care Management Pager: [phone] * Consult Note - Zach Pierre RPH - 10/29/2023 3:01 AM EDT [facility] Medication List Update for Medication Reconciliation 10/29/23 3:01 AM Tana Cavazos 1995 Allergies Allergen Reactions Fluoxetine Other (See Comments) HIVES, HEART RACES Tegaderm [Transparent Dressings] Itching and Dermatitis Please use [id number] Cyclobenzaprine Other Reaction(s): Not available Doxycycline Other [...] reconciled by the provider. Please [facility] Medication Reconciliation Pharmacist at for any questions. [...] the patient underwent a revision surgery in [place], [place] that involved removal of a R [...] All Drainage Procedures 06/25/2022 Mich Martino MD [facility] INTERVENT[facility] RAD IR ALL DRAINAGE PROCEDURES 07/04/2022 IR All Drainage Procedures 07/04/2022 Mich Martino MD [facility] RAD IR ALL DRAINAGE PROCEDURES 07/24/2022 IR All Drainage Procedures 07/24/2022 Anurag Kumar MD [facility] RAD IR ALL DRAINAGE PROCEDURES 09/26/2022 IR All Drainage Procedures 09/26/2022 Jamaal Jenkins, DO [facility] RAD IR DRAIN CHECK/CHANGE/REMOVE 07/01/2022 IR Drain Check/Change/Remove 07/01/2022 Jamaal Jenkins, DO [facility] RAD IR DRAIN CHECK/CHANGE/REMOVE 08/11/2022 IR Drain Check/Change/Remove 08/11/2022 Piter Self MD [facility] INTER[facility] RAD IR DRAIN CHECK/CHANGE/REMOVE 08/25/2022 IR Drain Check/Change/Remove 08/25/2022 Jamaal Jenkins, DO [facility] RAD IR DRAIN CHECK/CHANGE/REMOVE 09/10/2022 IR Drain Check/Change/Remove 09/10/2022 Mich Martino MD [facility] RAD PRO APPLY OF HIP CASTS, TWO LEGS 08/15/2010 CAST APPLICATION, HIP SPICA, BOTH LEGS performed by BARRERA OLIVER at [facility] MAIN OR PRO COLONOSCOPY, BIOPSY N/A 08/05/2023 COLONOSCOPY FLEXIBLE, WITH BX (WRVU 3.56) performed by Jamar Gastelum MD at [facility] ENDOSCOPY PRO I&D, POST SPINE, LUMB/SACR/LUMBOSAC N/A 05/20/2014 @I & D, OPEN, DEEP ABSCESS, LUMBAR, SACRAL, LUMBOSACRAL performed by Freddy Isbell MD at [facility] MAIN OR PRO I&D, POST SPINE, LUMB/SACR/LUMBOSAC N/A 05/26/2014 @I & D, OPEN, DEEP ABSCESS, LUMBAR, SACRAL, LUMBOSACRAL performed by Freddy Isbell MD at [facility] MAIN OR PRO IMPACT TOOTH REMOV COMP BONY N/A 06/14/2018 SURGICAL EXTRACTIONS, REMOVAL OF IMPACTED TOOTH, COMPLETELY BONY (WRVU 1.93) performed by Keith Cotton MD at [facility] OSC PRO OSTEOTOMY FEMUR SHAFT/SUPRACONDY 08/15/2010 ??OSTEOTOMY, FEMUR SHAFT OR SUPRACONDYLAR W/O FIXATION performed by BARRERA OLIVER at [facility] MAIN OR [facility] RECONSTRUC HIP SOCKET, RESEC FEM HEAD 08/15/2010 ??ACETABULOPLASTY (GIRDLESTONE), RESECTION FEMORAL HEAD, BILATERAL performed by BARRERA OLIVER [facility] MAIN OR PRO REMOVAL DEEP IMPLANT 08/15/2010 REMOVAL IMPLANT, DEEP, BRUNO performed by BARRERA OLIVER at [facility] MAIN OR PRO REMOVAL ERUPTED TOOTH WITH ELEVATION OF MUCOPERIOSTEAL FLAP N/A 06/14/2018 SURGICAL EXTRACTIONS REQUIRING ELEVATION OF MUCOPERIOSTEAL FLAP AND REMOVAL OF BONE OR SECTION OF TOOTH (WRVU 1.09) performed by Keith Cotton MD at [facility] OSC PRO REMOVE INFUSN DEVICE/PUMP N/A 05/11/2014 REMOVAL OF SPINE INFUSION PUMP performed by Jamaal Samuel MD at [facility] MAIN OR PRO REMOVE SPINAL CANAL CATHETER N/A 05/11/2014 REMOVAL OF INTRATHECAL OR EPIDURAL CATHETER performed by Jamaal Samuel MD at [facility] MAIN OR PRO REPR, DURAL/CSF LEAK, NOT REQ LAMINECTOMY N/A 05/20/2014 @REPAIR DURAL\CSF LEAK,NOT REQUIRING LAMINECTOMY performed by Freddy Isbell MD at [facility] MAIN OR Home Medications: (Not in a hospital admission) Allergies: Allergies Allergen Reactions Fluoxetine Other (See Comments) HIVES, HEART RACES Tegaderm [Transparent Dressings] Itching and Dermatitis Please use [id number] Cyclobenzaprine Other Reaction(s): Not available Doxycycline Other [...] course. James Swanson IV, DO Orthopaedic Surgery, [id number] ADDENDUM: Case reviewed with Dr. Galvan. Plan [...] she had I+D with hardware exchange at [facility] last year. She was doing well [...] PM EST Office [place] [address] Hollie Ambriz MD [facility] [place] [address] Scheduled Orders Name Type Priority Associated Diagnoses [...] antisepsis. The existing drain was prepped and aped in the usual sterile fashion. Contrast was [...] ?? Andrade Melvin MD IMG IR ORDERABLES * Place PICC Line: Contact Vascular Access Page [phone] Extremity to exclude: No restrictions; Is PICC [...] to the planned procedure. Hand Hygiene: The record press operator did perform hand hygiene prior to line insertion. Catheter type: PICC Lot number: [id number] Procedure Technique: Skin was prepped with chlorhexidine. [...] Guidance (IV Team) (11/03/2023 11:19 AM EDT) [employer] WORKSTATION ID [id number] [facility] Anatomical Region Laterality Modality N/A Radio Fluoroscop [...] who have questions please contact the health intensive care unit nurse that requested your imaging first. ? Electronically signed by: Deb Avery MD, [facility] ??([phone]), at 11/03/2023 11:55 AM Narrative 11/03/2023 11:55 [...] patients who have questions please contactthe health intensive care unit nurse that requested your imaging first. Electronically signed by: Deb Avery MD, [facility]([phone]), at 11/03/2023 11:55 AM Wally Rosen MD IMG FLUORO ORDERABLE S * Differential, Automated (11/02/2023 5:26 AM EDT) Neutrophil % 69.0 % [facility] Neutrophil Absolute 5.16 1.70 - 6.10 x10(3)/[facility] Lymph % 21.7 % [facility] Lymphocytes Abs 1.6 0.9 - 3.2 x10(3)/[facility] Monocyte % 6.8 % [facility] Monocyte Abs 0.5 0.3 - 0.9 x10(3)/[facility] Eos % 1.6 % [facility] Eosinophils Abs 0.1 0.0 - 0.4 x10(3)/[facility] Basophil % 0.5 % [facility] Baso Absolute 0.0 0.0 - 0.1 x10(3)/[facility] Immature Gran % 0.40 % [facility] Comment: Immature granulocytes(IG's)percentage and absolute count will include metamyelocytes, myelocytes, and promyelocytes. Blood smears from CBCs yielding IG's will be scanned manually for concordance. If this scan disagrees with the automated IG or if promyelocytes are noted, a manual differential will be performed. Immature Gran Absolute 0.03 0.00 - 0.04 x10(3)/[facility] Blood 11/02/2023 5:26 AM EDT 11/02/2023 5:43 AM EDT Narrative Resulting Agency Comment Spec In Lab Wally Rosen MD HEMATOLOGY ORDERABLE S [facility] [place] [address] * (ABNORMAL) Hemogram (11/02/2023 5:26 AM EDT) White Blood Cell 7.5 4.0 - 9.5 x10(3)/mc L [facility] Red Blood Cell 3.89(L) 4.00 - 5.21 x10(6)/mc L [facility] Hemoglobin 11.1(L) 11.7 - 15.5 g/dL [facility] Hematocrit 33.8(L) 35.7 - 45.8 % [facility] Mean Cell Volume 86.9 82.6 - 94.4 fL [facility] Mean Cell Hemoglobin 28.5 27.1 - 32.0 pg [facility] Mean Cell Hemoglobin Concentration 32.8 31.7 - 35.0 g/dL [facility] Platelet 477(H) 145 - 357 x10(3)/mc L [facility] RDW Standard Deviation 45.1 37.0 - 46.0 fL [facility] RDW coefficient of variation 14.3(H) 11.5 - 14.1 % [facility] Mean Platelet Volume 9.1 7.6 - 12.9 fL [facility] NRBC% auto 0.0 % [facility] NRBC Absolute 0.000 0.000 - 0.000 x10(3)/mc L [facility] Blood 11/02/2023 5:26 AM EDT 11/02/2023 5:43 AM EDT Narrative Resulting Agency Comment Spec In Lab Wally Rosen MD HEMATOLOGY ORDERABLE S Performing Organization Address [facility] Co de Phone Number [facility] [place] [address] * CK (11/02/2023 5:26 AM EDT) Creatine Kinase 14 0 - 160 unit/L [facility] Blood 11/02/2023 5:26 AM EDT 11/02/2023 5:44 AM EDT Narrative Resulting Agency Comment Spec In Lab Wally Rosen MD CHEMISTRY ORDERABLES Performing Organization Address [facility] Co de Phone Number [facility] [place] [address] * (ABNORMAL) Comprehensive metabolic panel (non-fasting) (11/02/2023 5:26 AM EDT) Glucose 109 65 - 199 mg/dL [facility] Comment:Diabetes: >=200 mg/d L plus symptoms Blood Urea Nitrogen 13 8 - 18 mg/dL [facility] Comment:result rechecked-mg Creatinine 0.27(L) 0.70 - 1.20 mg/dL [facility] Sodium 138 135 - 145 mmol/L [facility] Potassium 3.9 3.5 - 5.0 mmol/L [facility] Comment: Please note: ??Patients with WBC >100,000 may have falsely elevated Potassium levels. ??For accurate Potassium quantification in these patients send serum separator tube (gold top) for subsequent determinations. ??Contact the Clinical Chemistry Laboratory if there are any questions. Chloride 104 98 - 107 mmol/L [facility] Carbon Dioxide 21(L) 22 - 31 mmol/L [facility] Anion Gap 13 5 - 15 mmol/L [facility] Calcium 9.8 8.5 - 10.5 mg/dL [facility] Protein, Total 7.2 6.1 - 8.0 g/dL [facility] Albumin 3.5 3.2 - 5.2 g/dL [facility] Aspartate Aminotransferase 13 0 - 30 unit/L [facility] Alanine Aminotransferase 27 0 - 30 unit/L [facility] Alkaline Phosphatase 209(H) 35 - 105 unit/L [facility] Bilirubin, Total <0.2(L) 0.2 - 1.3 mg/dL [facility] Est Glomerular Filtration Rate 150 >=60 mL/min/1. 73 m?? [facility] Rosen MD CHEMISTRY ORDERABLES Performing Organization Address City/[facility]/ZIP Co de Phone Number [facility] [place] [address] * (ABNORMAL) CRP, acute inflammation (11/02/2023 5:26 AM EDT) Pathologist [facility] C-Reactive Protein 62.8(H) <=4.9 mg/L [facility] Blood 11/02/2023 5:26 AM EDT 11/02/2023 5:44 AM EDT Narrative Resulting Agency Comment Spec In Lab Wally Rosen MD CHEMISTRY ORDERABLES Performing Organization Address [facility] Co de Phone Number [facility] [place] [address] * XR Abdomen 1 view (Generic) (11/01/2023 10:14 PM EDT) [facility] WORKSTATION ID [id number] [facility] Anatomical Region Laterality Modality Abdomen [...] who have questions please contact the health intensive care unit nurse that requested your imaging first. ? Electronically signed by: Marisela Estrella MD, [facility] ([phone]), at 11/02/2023 8:47 AM Narrative 11/02/2023 8:47 [...] patients who have questions please contactthe health intensive care unit nurse that requested your imaging first. Electronically signed by: Marisela Estrella MD, [facility]([phone]), at 11/02/2023 8:47 AM Mindy Da Silva [place] IMG DX ORDERABLES * MRSA PCR Screen ([facility]/CGP/APD/NLH) (10/31/2023 6:10 PM EDT) [facility] MRSA PCR Negative Negative [facility] MRSA (Interp) Methicillin-resist ant Staphylococcus aureus (MRSA) is NOT DETECTED The MRSA target DNA sequences (mec and SCC) were not detected within the acceptable ranges using the Xpert MRSA NxG on the GeneXpert Dx System ([employer]). This suggests the absence of MRSA in the patient specimen submitted for testing. This test is cleared by the U.S. Food and Drug Administration for clinical use and its performance characteristics have been verified by the Clinical Genomics [facility] Laboratory at [facility]. This result does not rule out the presence of any other organisms. Rare false negative results may occur if MRSA is present at low concentrations with much higher concentrations of other organisms including MRSE or S. aureus with an empty SCC cassette. [facility] Comment: [VERIFIED DATE]11.01.23 Verified By:Marisela Jolly (Electronic Signature) Nasopharyngeal Swab 10/31/19 6:10 PM EDT 11/01/2023 8:24 AM EDT Comment:Specimen Type->Nasop haryngeal Swab Narrative Resulting Agency Comment Spec In Lab Wally Rosen MD MOLECULAR ORDERABLES Performing Organization Address City/State/[facility] Co de Phone Number [facility] [place] [address] * Differential, Automated (10/31/2023 4:47 AM EDT) [facility] Neutrophil % 56.2 % [facility] Neutrophil Absolute 2.93 1.70 - 6.10 x10(3)/[facility] Lymph % 32.1 % [facility] Lymphocytes Abs 1.7 0.9 - 3.2 x10(3)/[facility] Monocyte % 9.0 % [facility] Monocyte Abs 0.5 0.3 - 0.9 x10(3)/[facility] Eos % 1.7 % [facility] Eosinophils Abs 0.1 0.0 - 0.4 x10(3)/[facility] Basophil % 0.8 % [facility] Baso Absolute 0.0 0.0 - 0.1 x10(3)/[facility] Immature Gran % 0.20 % [facility] Comment: Immature granulocytes(IG's)percentage and absolute count will include metamyelocytes, myelocytes, and promyelocytes. Blood smears from CBCs yielding IG's will be scanned manually for concordance. If this scan disagrees with the automated IG or if promyelocytes are noted, a manual differential will be performed. Immature Gran Absolute 0.01 0.00 - 0.04 x10(3)/[facility] Blood 10/31/2023 4:47 AM EDT 10/31/2023 4:55 AM EDT Narrative Resulting Agency Comment Spec In Lab Sharron Winters MD HEMATOLOGY ORDERABLE S Performing Organization Address City/State/[facility] Co de Phone Number [facility] [place] [address] * (ABNORMAL) Hemogram (10/31/2023 4:47 AM EDT) White Blood Cell 5.2 4.0 - 9.5 x10(3)/ L [facility] Red Blood Cell 3.89(L) 4.00 - 5.21 x10(6)/ L [facility] Hemoglobin 11.1(L) 11.7 - 15.5 g/dL [facility] Hematocrit 33.8(L) 35.7 - 45.8 % [facility] Mean Cell Volume 86.9 82.6 - 94.4 fL [facility] Mean Cell Hemoglobin 28.5 27.1 - 32.0 pg [facility] Mean Cell Hemoglobin Concentration 32.8 31.7 - 35.0 g/dL [facility] Platelet 488(H) 145 - 357 x10(3)/ L [facility] RDW Standard Deviation 45.6 37.0 - 46.0 fL [facility] RDW coefficient of variation 14.3(H) 11.5 - 14.1 % [facility] Mean Platelet Volume 9.0 7.6 - 12.9 fL [facility] NRBC% auto 0.0 % [facility] NRBC Absolute 0.000 0.000 - 0.000 x10(3)/mc L [facility] Blood 10/31/2023 4:47 AM EDT 10/31/2023 4:55 AM EDT Narrative Resulting Agency Comment Spec In Lab Sharron Winters MD HEMATOLOGY ORDERABLE S Performing Organization Address [facility]/ZIP Co de Phone Number [facility] [place] [address] * (ABNORMAL) CRP, acute inflammation (10/31/2023 4:47 AM EDT) C-Reactive Protein 99.2(H) <=4.9 mg/L [facility] Blood 10/31/2023 4:47 AM EDT 10/31/2023 4:55 AM EDT Narrative Resulting Agency Comment Spec In Lab Sharron Winters MD CHEMISTRY ORDERABLES Performing Organization Address [facility] Co de Phone Number [facility] [place] [address] * (ABNORMAL) Basic Metabolic Panel (non-fasting) (10/31/2023 4:47 AM EDT) Glucose 120 65 - 199 mg/dL [facility] Comment:Diabetes: >=200 mg/d L plus symptoms Blood Urea Nitrogen 8 8 - 18 mg/dL [facility] [...] questions. Chloride 106 98 - 107 mmol/L [facility] Carbon Dioxide 23 22 - 31 mmol/L [facility] Anion Gap 11 5 - 15 mmol/L [facility] Calcium 9.2 8.5 - 10.5 mg/dL [facility] [facility] Est Glomerular Filtration Rate 150 >=60 mL/min/1. 73 m?? [facility] In Lab Sharron Winters MD CHEMISTRY ORDERABLES [facility] [place] [address] * (ABNORMAL) Sedimentation rate (10/31/2023 4:47 AM EDT) Sedimentation Rate Automated 113(H) 2 - 37 mm/hr [facility] ORDERABLE S Performing Organization Address City/[facility]/ZIP Co de Phone Number [facility] [place] [address] * Magnesium (10/31/2023 4:47 AM EDT) Magnesium 0.86 0.69 - 1.07 mmol/L [facility] Blood 10/31/2023 4:47 AM EDT 10/31/2023 4:55 AM EDT Narrative Resulting Agency Comment Spec In Lab Sharron Winters MD CHEMISTRY ORDERABLES Performing Organization Address [facility] Co de Phone Number [facility] [place] [address] * IR All Drainage Procedures (10/30/2023 3:23 [...] performed this procedure. ? Sharron Winters MD [facility] [place] ORDERABLES * Anaerobic Culture (10/30/2023 3:02 PM EDT) Anaerobic Culture No anaerobic organisms isolated [facility] Fluid 10/30/2023 3:02 PM EDT 10/30/2023 3:47 PM EDT Comment:Infected seroma/absc ess lower mid posterior presacral region. Fluid culture. Narrative Resulting Agency Comment Spec In Lab Andrade Melvin MD MICROBIOLOGY - GENER AL ORDERABLES [facility] [place] [address] * Body Fluid Culture, Aerobic (10/30/2023 3:02 PM EDT) Pathologist [facility] Body Fluid Culture Rare mixed bacterial morphotypes suggestive of normal cutaneous zenon [facility] Gram Stain Many Neutrophils seen No microorganisms seen. [facility] Fluid 10/30/2023 3:02 PM EDT 10/30/2023 3:47 PM EDT Comment:Infected seroma/absc ess lower mid posterior presacral region. Fluid culture. Narrative Resulting Agency Comment Spec In Lab Andrade Melvin MD MICROBIOLOGY - GENER AL ORDERABLES [facility] [place] [address] * CK (10/30/2023 4:48 AM EDT) [facility] Creatine Kinase 29 0 - 160 unit/L [facility] Blood Venous Draw / Unknown 10/30/2023 4:48 AM EDT 10/30/2023 5:06 AM EDT Narrative Resulting Agency Comment Spec In Lab Hollie SIMSM CHEMISTRY ORDERABLES [facility] [place] [address] * Differential, Automated (10/30/2023 4:48 AM EDT) Pathologist [facility] Neutrophil % 67.0 % [facility] Neutrophil Absolute 4.61 1.70 - 6.10 x10(3)/[facility] Lymph % 22.3 % [facility] Lymphocytes Abs 1.5 0.9 - 3.2 x10(3)/[facility] Monocyte % 8.2 % [facility] Monocyte Abs 0.6 0.3 - 0.9 x10(3)/[facility] Eos % 1.6 % [facility] Eosinophils Abs 0.1 0.0 - 0.4 x10(3)/[facility] Basophil % 0.6 % [facility] Baso Absolute 0.0 0.0 - 0.1 x10(3)/[facility] Immature Gran % 0.30 % [facility] Comment: Immature granulocytes(IG's)percentage and absolute count will include metamyelocytes, myelocytes, and promyelocytes. Blood smears from CBCs yielding IG's will be scanned manually for concordance. If this scan disagrees with the automated IG or if promyelocytes are noted, a manual differential will be performed. Immature Gran Absolute 0.02 0.00 - 0.04 x10(3)/[facility] Blood 10/30/2023 4:48 AM EDT 10/30/2023 5:01 AM EDT Narrative Resulting Agency Comment Spec In Lab Sharron Winters MD HEMATOLOGY ORDERABLE S Performing Organization Address City/State/[facility] Co de Phone Number [facility] [place] [address] * (ABNORMAL) Hemogram (10/30/2023 4:48 AM EDT) White Blood Cell 6.9 4.0 - 9.5 x10(3)/mc L [facility] Red Blood Cell 3.97(L) 4.00 - 5.21 x10(6)/mc L [facility] Hemoglobin 11.3(L) 11.7 - 15.5 g/dL [facility] Hematocrit 34.8(L) 35.7 - 45.8 % [facility] Mean Cell Volume 87.7 82.6 - 94.4 fL [facility] Mean Cell Hemoglobin 28.5 27.1 - 32.0 pg [facility] Mean Cell Hemoglobin Concentration 32.5 31.7 - 35.0 g/dL [facility] Platelet 432(H) 145 - 357 x10(3)/mc L [facility] RDW Standard Deviation 45.6 37.0 - 46.0 [facility] RDW coefficient of variation 14.3(H) 11.5 - 14.1 % [facility] Mean Platelet Volume 9.3 7.6 - 12.9 [facility] NRBC% auto 0.0 % [facility] NRBC Absolute 0.000 0.000 - 0.000 x10(3)/mc L [facility] Blood 10/30/2023 4:48 AM EDT 10/30/2023 5:01 AM EDT Narrative Resulting Agency Comment Spec In Lab Sharron Winters MD HEMATOLOGY ORDERABLE S Performing Organization Address City/[facility]/ZIP Co de Phone Number [facility] [place] [address] * (ABNORMAL) CRP, acute inflammation (10/30/2023 4:48 AM EDT) C-Reactive Protein 120.3(H) <=4.9 mg/L [facility] Comment:result rechecked-KS Blood 10/30/2023 4:48 AM EDT 10/30/2023 5:01 AM EDT Narrative Resulting Agency Comment Spec In Lab Sharron Winters MD CHEMISTRY ORDERABLES [facility] [place] [address] * (ABNORMAL) Basic Metabolic Panel (non-fasting) (10/30/2023 4:48 AM EDT) Glucose 113 65 - 199 mg/dL [facility] Comment:Diabetes: >=200 mg/d L plus symptoms Blood Urea Nitrogen 7(L) 8 - 18 mg/dL [facility] Creatinine 0.33(L) 0.70 - 1.20 mg/dL [facility] Sodium 136 135 - 145 mmol/L [facility] Potassium 4.1 3.5 - 5.0 mmol/L [facility] Comment: Please note: ??Patients with WBC >100,000 may have falsely elevated Potassium levels. ??For accurate Potassium quantification in these patients send serum separator tube (gold top) for subsequent determinations. ??Contact the Clinical Chemistry Laboratory if there are any questions. Chloride 102 98 - 107 mmol/L [facility] Carbon Dioxide 23 22 - 31 mmol/L [facility] Anion Gap 11 5 - 15 mmol/L [facility] Calcium 9.3 8.5 - 10.5 mg/dL [facility] Est Glomerular Filtration Rate 143 >=60 mL/min/1. 73 m?? [facility] In Lab Sharron Winters MD CHEMISTRY ORDERABLES [facility] [place] [address] * (ABNORMAL) Sedimentation rate (10/30/2023 4:48 AM EDT) Sedimentation Rate Automated 103(H) 2 - 37 mm/hr [facility] Lab Sharron Winters MD HEMATOLOGY ORDERABLE S [facility] [place] [address] * Magnesium (10/30/2023 4:48 AM EDT) Pathologist [facility] Magnesium 0.89 0.69 - 1.07 mmol/L [facility] Blood 10/30/2023 4:48 AM EDT 10/30/2023 5:01 AM EDT Narrative Resulting Agency Comment Spec In Lab Sharron Winters MD CHEMISTRY ORDERABLES Performing Organization Address City/[facility] Co de Phone Number [facility] [place] [address] * POCT urine (10/29/2023 10:26 AM EDT) [facility] POC Urine HCG Negative POC Control Internal Controls Acceptable 10/29/2023 10:2 6 AM EDT Sharron Winters MD POINT OF CARE TEST O RDERABLES * (ABNORMAL) Differential, Automated (10/29/2023 8:37 AM EDT) Pathologist [facility] Neutrophil % 74.9 % [facility] Neutrophil Absolute 6.45(H) 1.70 - 6.10 x10(3)/mc L [facility] Lymph % 16.8 % [facility] Lymphocytes Abs 1.4 0.9 - 3.2 x10(3)/mc L [facility] Monocyte % 6.1 % [facility] Monocyte Abs 0.5 0.3 - 0.9 x10(3)/mc L [facility] Eos % 1.3 % [facility] Eosinophils Abs 0.1 0.0 - 0.4 x10(3)/ L [facility] Basophil % 0.6 % [facility] Baso Absolute 0.0 0.0 - 0.1 x10(3)/ L [facility] Immature Gran % 0.30 % [facility] Comment: Immature granulocytes(IG's)percentage and absolute count will include metamyelocytes, myelocytes, and promyelocytes. Blood smears from CBCs yielding IG's will be scanned manually for concordance. If this scan disagrees with the automated IG or if promyelocytes are noted, a manual differential will be performed. Immature Gran Absolute 0.03 0.00 - 0.04 x10(3)/[facility] Blood 10/29/2023 8:37 AM EDT 10/29/2023 8:47 AM EDT Narrative Resulting Agency Comment Spec In Lab Brennan Maldonado MD HEMATOLOGY ORDERABL ES [facility] [place] [id number] * (ABNORMAL) Hemogram (10/29/2023 8:37 AM EDT) White Blood Cell 8.6 4.0 - 9.5 x10(3)/ L [facility] Red Blood Cell 3.98(L) 4.00 - 5.21 x10(6)/ L [facility] Hemoglobin 11.2(L) 11.7 - 15.5 g/dL [facility] Hematocrit 33.8(L) 35.7 - 45.8 % [facility] Mean Cell Volume 84.9 82.6 - 94.4 fL [facility] Mean Cell Hemoglobin 28.1 27.1 - 32.0 pg [facility] Mean Cell Hemoglobin Concentration 33.1 31.7 - 35.0 g/dL [facility] Platelet 477(H) 145 - 357 x10(3)/ L [facility] RDW Standard Deviation 44.0 37.0 - 46.0 fL [facility] RDW coefficient of variation 14.1 11.5 - 14.1 % [facility] Mean Platelet Volume 9.3 7.6 - 12.9 fL [facility] NRBC% auto 0.0 % [facility] NRBC Absolute 0.000 0.000 - 0.000 x10(3)/mc L [facility] Blood 10/29/2023 8:37 AM EDT 10/29/2023 8:47 AM EDT Narrative Resulting Agency Comment Spec In Lab Brennan Maldonado MD HEMATOLOGY ORDERABL ES Performing Organization Address [facility]/ZIP Co de Phone Number [facility] [place] [address] * Lactate, whole blood, send to lab ([facility]) (10/29/2023 8:37 AM EDT) Lactate WB 1.8 0.5 - 2.2 mmol/L [facility] Blood 10/29/2023 8:37 AM EDT 10/29/2023 8:47 AM EDT Narrative Resulting Agency Comment Spec In Lab Brennan Maldonado MD CHEMISTRY ORDERABLE S Performing Organization Address City/[facility]/ZIP Co de Phone Number [facility] [place] [address] * Phosphorus (10/29/2023 8:37 AM EDT) Phosphorus 3.6 2.5 - 4.5 mg/dL [facility] Blood 10/29/2023 8:37 AM EDT 10/29/2023 8:47 AM EDT Narrative Resulting Agency Comment Spec In Lab Brennan Maldonado MD CHEMISTRY ORDERABLE S Performing Organization Address City/[facility]/ZIP Co de Phone Number [facility] [place] [address] * Magnesium (10/29/2023 8:37 AM EDT) Magnesium 0.94 0.69 - 1.07 mmol/L [facility] Blood 10/29/2023 8:37 AM EDT 10/29/2023 8:47 AM EDT Narrative Resulting Agency Comment Spec In Lab Brennan Maldonado MD CHEMISTRY ORDERABLE S [facility] [place] [address] * (ABNORMAL) Basic Metabolic Panel (non-fasting) (10/29/2023 8:37 AM EDT) Glucose 96 65 - 199 mg/dL [facility] Comment:Diabetes: >=200 mg/d L plus symptoms Blood Urea Nitrogen 6(L) 8 - 18 mg/dL [facility] Creatinine 0.31(L) 0.70 - 1.20 mg/dL [facility] Sodium 140 135 - 145 mmol/L [facility] Potassium 4.2 3.5 - 5.0 mmol/L [facility] Comment: Please note: ??Patients with WBC >100,000 may have falsely elevated Potassium levels. ??For accurate Potassium quantification in these patients send serum separator tube (gold top) for subsequent determinations. ??Contact the Clinical Chemistry Laboratory if there are any questions. Chloride 103 98 - 107 mmol/L [facility] Carbon Dioxide 26 22 - 31 mmol/L [facility] Anion Gap 11 5 - 15 mmol/L [facility] Calcium 9.4 8.5 - 10.5 mg/dL [facility] Est Glomerular Filtration Rate 145 >=60 mL/min/1. 73 m?? [facility] MD CHEMISTRY ORDERABLE S Performing Organization Address [facility] Co de Phone Number [facility] [place] [address] * (ABNORMAL) Urinalysis Microscopic Exam (10/29/2023 2:33 AM EDT) RBC, Urine >100(H) 0 - 4 /HPF [facility] WBC, Urine 4 0 - 5 /HPF [facility] Squamous Epithelial Cells Raw Data, Urine 4 <=4 /HPF [facility] Hyaline Casts, Urine <1 0 - 2 /LPF [facility] Comment: Interpret results with caution, microscopic results are from suboptimal specimen volume Straight Catheter Urine 10/29/2023 2:33 AM EDT 10/29/2023 2:43 AM EDT Narrative Resulting Agency Comment Spec In Lab Sharron Winters MD URINE ORDERABLES Performing Organization Address [facility] Co de Phone Number [facility] [place] [address] * (ABNORMAL) Urinalysis with reflex Culture (10/29/2023 2:33 AM EDT) Glucose, Urine Dipstick Negative Negative mg/dL [facility] Protein, Urine Dipstick 30(A) Negative mg/dL [facility] Bilirubin, Urine Dipstick Negative Negative mg/dL [facility] Comment: Clinical correlation required for positive Urine Bilirubin results as false positive may occur with some drugs and drug related products. If a false positive is suspected a serum total bilirubin should be considered if clinically indicated. Urobilinogen, Urine Dipstick Normal Normal mg/dL [facility] pH, Urn (dipstick) 6.5 5.0 - 8.0 [facility] Blood, Urine Dipstick Large(A) Negative mg/dL [facility] Ketone, Urine Dipstick Negative Negative mg/dL [facility] Nitrite, Urine Dipstick Negative Negative [facility] Leukocytes, Urine Dipstick Negative Negative [facility] Appearance, Urine Dipstick Clear Clear [facility] Specific Lovely Urine Automated >=1.030(A) 1.005 - 1.030 [facility] Color, Urine Dipstick Yellow Yellow [facility] Reflex to Culture No [facility] Straight Catheter Urine 10/29/2023 2:33 AM EDT 10/29/2023 2:43 AM EDT Narrative Resulting Agency Comment Spec In Lab Sharron Winters MD URINE ORDERABLES Performing Organization Address City/[facility]/ZIP Co de Phone Number [facility] [place] [address] * (ABNORMAL) CRP, acute inflammation (10/29/2023 2:08 AM EDT) C-Reactive Protein 133.4(H) <=4.9 mg/L [facility] Blood 10/29/2023 2:08 AM EDT 10/29/2023 2:33 AM EDT Narrative Resulting Agency Comment Spec In Lab Sharron Winters MD CHEMISTRY ORDERABLES Performing Organization Address City/[facility]/ZIP Co de Phone Number [facility] [place] [address] * Phosphorus (10/29/2023 2:08 AM EDT) Phosphorus 3.1 2.5 - 4.5 mg/dL [facility] Blood 10/29/2023 2:08 AM EDT 10/29/2023 2:33 AM EDT Narrative Resulting Agency Comment Spec In Lab Sharron Winters MD CHEMISTRY ORDERABLES Performing Organization Address [facility] Co de Phone Number [facility] [place] [address] * (ABNORMAL) Sedimentation rate (10/29/2023 2:08 AM EDT) [facility] Sedimentation Rate Automated >119(H) 2 - 37 mm/hr [facility] ORDERABLE S Performing Organization Address [facility] de Phone Number [facility] [place] [address] * Magnesium (10/29/2023 2:08 AM EDT) Pathologist [facility] Magnesium 0.85 0.69 - 1.07 mmol/L [facility] Blood 10/29/2023 2:08 AM EDT 10/29/2023 2:33 AM EDT Narrative Resulting Agency Comment Spec In Lab Sharron Winters MD CHEMISTRY ORDERABLES Performing Organization Address [facility] de Phone Number [facility] [place] [address] * CT Lumbar Spine w Contrast (10/28/2023 9:50 PM EDT) [facility] Signature WORKSTATION ID [id number] RAD Anatomical Region Laterality Modality L-spine Computed [...] who have questions please contact the health intensive care unit nurse that requested your imaging first. ? Electronically signed by: Enid Vargas MD, [facility] ([phone]), at 10/28/2023 10:17 PM Narrative 10/28/2023 10:17 [...] patients who have questions please contactthe health intensive care unit nurse that requested your imaging first. Electronically signed by: Enid Vargas MD, [facility]([phone]), at 10/28/2023 10:17 PM Siomara Hernandez MD [facility] ORDERABLES * Differential, Automated (10/28/2023 9:00 PM EDT) Neutrophil % 66.3 % [facility] Neutrophil Absolute 5.75 1.70 - 6.10 x10(3)/[facility] Lymph % 24.1 % [facility] Lymphocytes Abs 2.1 0.9 - 3.2 x10(3)/[facility] Monocyte % 7.2 % [facility] Monocyte Abs 0.6 0.3 - 0.9 x10(3)/[facility] Eos % 1.4 % [facility] Eosinophils Abs 0.1 0.0 - 0.4 x10(3)/[facility] Basophil % 0.5 % [facility] Baso Absolute 0.0 0.0 - 0.1 x10(3)/[facility] Immature Gran % 0.50 % [facility] Comment: Immature granulocytes(IG's)percentage and absolute count will include metamyelocytes, myelocytes, and promyelocytes. Blood smears from CBCs yielding IG's will be scanned manually for concordance. If this scan disagrees with the automated IG or if promyelocytes are noted, a manual differential will be performed. Immature Gran Absolute 0.04 0.00 - 0.04 x10(3)/[facility] Blood 10/28/2023 9:00 PM EDT 10/28/2023 9:17 PM EDT Narrative Resulting Agency Comment Spec In Lab Esteban King DIESEL TECHNICIAN MECHANIC HEMATOLOGY ORDERABLE S [facility] [place] [address] * (ABNORMAL) Hemogram (10/28/2023 9:00 PM EDT) White Blood Cell 8.7 4.0 - 9.5 x10(3)/[facility] Red Blood Cell 4.28 4.00 - 5.21 x10(6)/ L [facility] Hemoglobin 11.9 11.7 - 15.5 g/dL [facility] Hematocrit 36.5 35.7 - 45.8 % [facility] Mean Cell Volume 85.3 82.6 - 94.4 fL [facility] Mean Cell Hemoglobin 27.8 27.1 - 32.0 pg [facility] Mean Cell Hemoglobin Concentration 32.6 31.7 - 35.0 g/dL [facility] Platelet 525(H) 145 - 357 x10(3)/[facility] RDW Standard Deviation 43.8 37.0 - 46.0 [facility] RDW coefficient of variation 14.2(H) 11.5 - 14.1 % [facility] Mean Platelet Volume 9.2 7.6 - 12.9 [facility] NRBC% auto 0.0 % [facility] NRBC Absolute 0.000 0.000 - 0.000 x10(3)/[facility] Blood 10/28/2023 9:00 PM EDT 10/28/2023 9:17 PM EDT Narrative Resulting Agency Comment Spec In Lab Esteban King APRN HEMATOLOGY ORDERABLE S [facility] [place] [address] * (ABNORMAL) CRP, acute inflammation (10/28/2023 9:00 PM EDT) Pathologist [facility] C-Reactive Protein 148.3(H) <=4.9 mg/L [facility] Blood 10/28/2023 9:00 PM EDT 10/28/2023 9:17 PM EDT Narrative Resulting Agency Comment Spec In Lab Esteban King APRN CHEMISTRY ORDERABLES Performing Organization Address [facility] Co de Phone Number [facility] [place] [address] * (ABNORMAL) Sedimentation rate (10/28/2023 9:00 PM EDT) Pathologist [facility] Sedimentation Rate Automated >119(H) 2 - 37 mm/hr [facility] Comment: Effective April 06, 2019 new capillary photometric technology has resulted in a change in reference ranges. It is recommended that each ESR result be reviewed with its own age appropriate reference range. Blood 10/28/2023 9:00 PM EDT 10/28/2023 9:17 PM EDT Narrative Resulting Agency Comment Spec In Lab Esteban Rolona DIESEL TECHNICIAN MECHANIC HEMATOLOGY ORDERABLE S Performing Organization Address [facility] Co de Phone Number [facility] [place] [address] * (ABNORMAL) Basic Metabolic Panel (non-fasting) (10/28/2023 9:00 PM EDT) [facility] Glucose 88 65 - 199 mg/dL [facility] Comment:Diabetes: >=200 mg/d L plus symptoms Blood Urea Nitrogen 7(L) 8 - 18 mg/dL [facility] Creatinine 0.25(L) 0.70 - 1.20 mg/dL [facility] Sodium 137 135 - 145 mmol/L [facility] Potassium Not Perf 3.5 - 5.0 [facility] Comment: Unable to [...] questions. Chloride 102 98 - 107 mmol/L [facility] Carbon Dioxide 25 22 - 31 mmol/L [facility] Anion Gap 10 5 - 15 mmol/L [facility] Calcium 9.4 8.5 - 10.5 mg/dL [facility] Est Glomerular Filtration Rate 153 >=60 mL/min/1. 73 m?? [facility] In Lab Esteban King APRN CHEMISTRY ORDERABLES [facility] [place] [address] documented in this encounter Visit Diagnoses Diagnosis [...] Until Discontinued, Dose rounded per P&T policy, Routine, Indication for (Active or Suspected): Skin/Skin Structure, Restricted Antibiotic: Please indicate the most appropriate choice: ID Approval by Suellen Greenwood 11/01/2023 9:01 PM EDT 450 mg 118 [...] 1 capsule, Oral, DAILY, First dose on Dianne 10/29/23 [...] Until Discontinued, Dose rounded per P&T policy, Routine, Indication for (Active or Suspected): Skin/Skin Structure, Restricted Antibiotic: Please indicate the most appropriate choice: ID Approval by Suellen Greenwood 2100 (New Bag - Provider: Arielle Contreras [...] 08 (Given - Provider: Maryana Cottrell RN) 905 (Given - Provider: Diandra Luo RN) polyethylene glycoL (Miralax) packet 17 g 17 g, Oral, DAILY, First dose on Thu10/29/23 at 0900, Until Discontinued, Routine 951 (Given - Provider: Maryana Cottrell RN) 08 (Given - Provider: Maryana Cottrell RN) 905 (Given - Provider: Diandra Luo RN) senna (Senokot) tablet 17.2 mg 17.2 mg, Oral, NIGHTLY, First dose on Dianne 7/4/24 at 2100, Until Discontinued, Routine 2100 (Given [...] RN) 08 (Given - Provider: Maryana Cottrell RN)2099 (Not [...] Thu10/29/23 at 0100, Until Thu11/03/23 at 1925, flush, Flush pertains to all indwelling lines. [...] ordered. documented in this encounter Care Teams Power Cleaner Operator Relationship Specialty Start Date End Date Lorna Bal APRN [address] [place] [address] PCP - General Family Medicine 05/27/18 documented as of this encounter
--- OUTSIDE RECORDS SUMMARY | 2024-01-12 21:13 | XMS_ITS | Encounter Summary ---
Author Organization [facility] Address [facility] [place] [address] Care Team Providers Care Pulmonary Physical Therapist Name Role Phone Lorna Bal APRN Primary Care Provider +1 [phone] Reason for Visit * Consultation (Routine) - Closed Specialty Diagnoses / Procedures Referred By Contac t Referred To Contact Infectious Diseases Diagnoses Spinal abscess Nikolay Toledo MD [facility] [address] Nikolay Toledo MD [facility] [place] [address] Referral ID Status Reason Start Date Expiration Date V isits Requested Visits Authorized [id number] Closed Assume Subset of Care 11/02/2023 11/01/2024 1 1 Encounter Details Date Type Department Care Team (Late st Contact Info) Description 12/03/2023 12:30 PM EDT Office [place] [address] Nikolay Toledo MD [facility] [place] [address] 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 Dx); 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 On arrival to [facility], she was afebrile without leukocytosis. Repeat of [...] evaluated by spine surgery multiple times at [facility] and was not deemeda candidate for operative intervention. Then, she was seen at [facility] for a second surgical opinion. On 08/27/2022, superficialCxs there revealed growth of Staph hemolyticus and capitis. She was initially continued on doxycycline for this but subsequently switched to TMP-SMX in early September 2022 given ?possible allergic reaction. She also did undergo re-insertion of IR drains on 09/26, with Cxs again returning negative. Eventually, she got a third surgical opinion at [facility] in [place] given the need for plastics closure of [...] continued to follow in ID clinic at [facility]. We discussed the equipoise as to whether [...] need to be placed back onto a senior sas developer suppressive antibiotic. Today, patient presents to ID clinic for nmq-[id number]-bufujki visit, accompanied by her caregivers, Liz Mckay. [...] [Transparent Dressings] Itching and Dermatitis Please use [id number] Cyclobenzaprine Other Reaction(s): Not available Doxycycline Other [...] and washout with complex plastics closure at [facility] in [place] on 02/11/23, after which she was treated with 6 weeks of IV vancomycin + pip-tazo. Then, she was placed on suppressive TMP-SMX to complete a total of ~7 months of treatment, which was eventually stopped on 09/24/23. She was re-admitted to [facility] in early October 2023 with erythema and [...] TMP-SMX dose to a lower dose for snf suppression ofinfection, such as 1 DS tab daily, if all continues to go well. 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
--- OUTSIDE RECORDS SUMMARY | 2024-01-12 21:13 | XMS_ITS | Encounter Summary ---
Author Organization [facility] [place] [address] Care Team Providers Care Drivers License Examiner Name Role Phone Lorna Bal APRN Primary Care Provider [phone] [phone] Reason for Referral * Diagnostic Test (Routine) - Closed Specialty Diagnoses / Procedures Referred By Contac t Referred To Contact Radiology Diagnoses Abscess Procedures IR Drain Check/Change/Remove Mich Martino MD [facility] DR INTER[place]ION[place] [address] [place] [address] Referral ID Status Reason Start Date Expiration Date V isits Requested Visits Authorized [id number] Closed Specialty Service Requested 12/03/2023 06/04/2025 1 1 * Diagnostic Test (Routine) - Closed Specialty Diagnoses / Procedures Referred By Contac t Referred To Contact Radiology Diagnoses Abscess Procedures IR Drain Check/Change/Remove Andrade Melvin MD [facility] [address] [place] [address] [place] [address] Referral ID Status Reason Start Date Expiration Date V isits Requested Visits Authorized [id number] Closed Specialty Service Requested 10/30/2023 05/01/2025 1 1 Reason for Visit * Diagnostic Test (Routine) - Closed Specialty Diagnoses / Procedures Referred By Contac t Referred To Contact Radiology Diagnoses Abscess Procedures IR Drain Check/Change/Remove Andrade Melvin MD [facility] [place] [address] [facility] [place] [address] Referral ID Status Reason Start Date Expiration Date V isits Requested Visits Authorized [id number] Closed Specialty Service Requested 10/30/2023 05/01/2025 1 1 Encounter Details Date Type Department Care Team (Latest Contact Info) Description 12/03/2023 1:20 PM EDT - 12/03/2023 11:59 PM EDT Hospital [place] [address] Andrade Melvin MD [facility] [place] [address] Abscess Discharge Disposition: Home Social History Tobacco Use Types Packs/Day Years Used Date Smoking Tobacco: Never Passive Smoke Exposure: Never Smokeless Tobacco: Never Comments:NO SMOKERS IN THE H OME Alcohol Use Standard Drinks/Week Comments No 0 (1 standard drink = 0.6 oz pur e alcohol) [facility] Utilities Answer Date Recorded In [...] any time in the past 12 m [facility], were you homeless or living [...] is during regular office hours, please call [phone]. If it is after regular office hours, or on weekends or holidays, please call [phone] and ask to speak to the Data Programmer information assurance analyst for Interventional Radiology. Revised 02/10/19 Drainage Record [...] of : 1995 AGE: 28 y.o. Address: [address] [place] [address] (home) [phone] (work) Mobile: Telephone Information: Referring Provider: Andrade Melvin REASON FOR VISIT: Order Questions Answers Where will study be performed? [facility] Radiology [120] To be scheduled Next available [...] [Transparent Dressings] Itching and Dermatitis Please use [id number] Cyclobenzaprine Other Reaction(s): Not available Doxycycline Other [...] Yes Allergies reviewed: Yes Source Note - [place], DEMI Torres - 11/23/2023 12:56 PM EDT Images from the original note were not included. Interventional Radiology Focused Pre-procedure H&P: PCP: Lorna Bal APRN Referring Provider: Andrade Melvin Planned procedure: Paraspinal drain check/exchange/removal Procedure indication: Chronic perihardware fluid collection, first routine drain check IR workflow: Procedure request received through Interventional Radiology eDH order queue. Order Questions Answers Where will study be performed? [facility] Radiology [120] To be scheduled Next available [...] - See Instructions). FLUSH PROTOCOL WITH MEDICATIONS ([facility]): Before med infusion: flush with NS [...] - See Instructions). FLUSH PROTOCOL WITH MEDICATIONS ([facility]): Before med infusion: flush with NS [...] Martino MD [facility] INTERVENTIONL RAD IR ALL DRAINAGE PROCEDURES 07/04/2022 IR All Drainage Procedures 07/04/2022 Mich Martino MD [facility] INTERVENTIONL RAD IR ALL DRAINAGE PROCEDURES 07/24/2022 IR All Drainage Procedures 07/24/2022 Anurag Kumar MD [facility] INTERVENTIONL RAD IR ALL DRAINAGE PROCEDURES 09/26/2022 IR All Drainage Procedures 09/26/2022 Jamaal Jenkins, DO [facility] INTERVENTIONL RAD IR ALL DRAINAGE PROCEDURES 10/30/2023 IR All Drainage Procedures 10/30/2023 Andrade Melvin MD [facility] INTERVENTIONL RAD IR DRAIN CHECK/CHANGE/REMOVE 07/01/2022 IR Drain Check/Change/Remove 07/01/2022 Jamaal Jenkins, DO [facility] INTERVENTIONL RAD IR DRAIN CHECK/CHANGE/REMOVE 08/11/2022 IR Drain Check/Change/Remove 08/11/2022 Piter Self MD [facility] INTERVENTIONL RAD IR DRAIN CHECK/CHANGE/REMOVE 08/25/2022 IR Drain Check/Change/Remove 08/25/2022 Jamaal Jenkins, [facility] INTERVENTIONL RAD IR DRAIN CHECK/CHANGE/REMOVE 09/10/2022 IR Drain Check/Change/Remove 09/10/2022 Mich Martino MD [facility] INTERVENTIONL RAD PRO APPLY OF HIP CASTS, TWO LEGS 08/15/2010 CAST APPLICATION, HIP SPICA, BOTH LEGS performed by BARRERA OLIVER at [facility] MAIN OR PRO COLONOSCOPY, BIOPSY N/A 08/05/2023 COLONOSCOPY FLEXIBLE, WITH BX (WRVU 3.56) performed by Jamar Gastelum MD at [facility] ENDOSCOPY PRO I&D, POST SPINE, LUMB/SACR/LUMBOSAC N/A 05/20/2014 @I & D, OPEN, DEEP ABSCESS, LUMBAR, SACRAL, LUMBOSACRAL performed by Freddy Isbell MD at [facility] MAIN OR PRO I&D, POST SPINE, LUMB/SACR/LUMBOSAC N/A 05/26/2014 @I & D, OPEN, DEEP ABSCESS, LUMBAR, SACRAL, LUMBOSACRAL performed by Freddy Isbell MD at [facility] MAIN OR PRO IMPACT TOOTH REMOV COMP BONY N/A 06/14/2018 SURGICAL EXTRACTIONS, REMOVAL OF IMPACTED TOOTH, COMPLETELY BONY (WRVU 1.93) performed by Keith Cotton MD at [facility] OSC PRO OSTEOTOMY FEMUR SHAFT/SUPRACONDY 08/15/2010 ??OSTEOTOMY, FEMUR SHAFT OR SUPRACONDYLAR W/O FIXATION performed by BARRERA OLIVER at [facility] MAIN OR PRO RECONSTRUC HIP SOCKET, RESEC FEM HEAD 08/15/2010 ??ACETABULOPLASTY (GIRDLESTONE), RESECTION FEMORAL HEAD, BILATERAL performed by BARRERA OLIVER [facility] MAIN OR PRO REMOVAL DEEP IMPLANT 08/15/2010 REMOVAL IMPLANT, DEEP, BRUNO performed by BARRERA OLIVER at [facility] MAIN OR PRO REMOVAL ERUPTED TOOTH WITH ELEVATION OF MUCOPERIOSTEAL FLAP N/A 06/14/2018 SURGICAL EXTRACTIONS REQUIRING ELEVATION OF MUCOPERIOSTEAL FLAP AND REMOVAL OF BONE OR SECTION OF TOOTH (WRVU 1.09) performed by Keith Cotton MD at [facility] OSC PRO REMOVE INFUSN DEVICE/PUMP N/A 05/11/2014 REMOVAL OF SPINE INFUSION PUMP performed by Jamaal Samuel MD at [facility] MAIN OR PRO REMOVE SPINAL CANAL CATHETER N/A 05/11/2014 REMOVAL OF INTRATHECAL OR EPIDURAL CATHETER performed by Jamaal Samuel MD at [facility] MAIN OR PRO REPR, DURAL/CSF LEAK, NOT REQ LAMINECTOMY N/A 05/20/2014 @REPAIR DURAL\CSF LEAK,NOT REQUIRING LAMINECTOMY performed by Freddy Isbell MD at [facility] MAIN OR Social History and Habits: [...] Questions Answers Where will study be performed? [facility] Radiology [120] To be scheduled Next available after expected date Reason for exam and clinical history: Status post paraspinal drain placement 10/30/2023, planning 4 week interval follow-up given 3-month course for drainage of same region in 2022. Is the patient ? No Is the patient on anticoagulant / antiplatelet therapy ? No History of Present Illness: Per chart review, Tnaa Cavazos is a 28 y.o. female with [...] Martino MD [facility] INTERVENTIONL RAD IR ALL DRAINAGE PROCEDURES 07/04/2022 IR All Drainage Procedures 07/04/2022 Mich Martino MD [facility] INTERVENTIONL RAD IR ALL DRAINAGE PROCEDURES 07/24/2022 IR All Drainage Procedures 07/24/2022 Anurag Kumar MD [facility] INTERVENTIONL RAD IR ALL DRAINAGE PROCEDURES 09/26/2022 IR All Drainage Procedures 09/26/2022 Jamaal Jenkins DO [facility] INTERVENTIONL RAD IR ALL DRAINAGE PROCEDURES 10/30/2023 IR All Drainage Procedures 10/30/2023 Andrade Melvin MD [facility] INTERVENTIONL RAD IR DRAIN CHECK/CHANGE/REMOVE 07/01/2022 IR Drain Check/Change/Remove 07/01/2022 Jamaal Jenkins, DO [facility] INTERVENTIONL RAD IR DRAIN CHECK/CHANGE/REMOVE 08/11/2022 IR Drain Check/Change/Remove 08/11/2022 Piter Self MD [facility] INTERVENTIONL RAD IR DRAIN CHECK/CHANGE/REMOVE 08/25/2022 IR Drain Check/Change/Remove 08/25/2022 Jamaal Jenkins, DO [facility] INTERVENTIONL RAD IR DRAIN CHECK/CHANGE/REMOVE 09/10/2022 IR Drain Check/Change/Remove 09/10/2022 Mich Martino MD [facility] INTERVENTIONL RAD PRO APPLY OF HIP CASTS, TWO LEGS 08/15/2010 CAST APPLICATION, HIP SPICA, BOTH LEGS performed by BARRERA OLIVER at [facility] MAIN OR PRO COLONOSCOPY, BIOPSY N/A 08/05/2023 COLONOSCOPY FLEXIBLE, WITH BX (WRVU 3.56) performed by Jamar Gastelum MD at [facility] ENDOSCOPY PRO I&D, POST SPINE, LUMB/SACR/LUMBOSAC N/A 05/20/2014 @I & D, OPEN, DEEP ABSCESS, LUMBAR, SACRAL, LUMBOSACRAL performed by Freddy Isbell MD at [facility] MAIN OR PRO I&D, POST SPINE, LUMB/SACR/LUMBOSAC N/A 05/26/2014 @I & D, OPEN, DEEP ABSCESS, LUMBAR, SACRAL, LUMBOSACRAL performed by Freddy Isbell MD at [facility] MAIN OR PRO IMPACT TOOTH REMOV COMP BONY N/A 06/14/2018 SURGICAL EXTRACTIONS, REMOVAL OF IMPACTED TOOTH, COMPLETELY BONY (WRVU 1.93) performed by Keith Cotton MD at [facility] OSC PRO OSTEOTOMY FEMUR SHAFT/SUPRACONDY 08/15/2010 ??OSTEOTOMY, FEMUR SHAFT OR SUPRACONDYLAR W/O FIXATION performed by BARRERA OLIVER at [facility] MAIN OR PRO RECONSTRUC HIP SOCKET, RESEC FEM HEAD 08/15/2010 ??ACETABULOPLASTY (GIRDLESTONE), RESECTION FEMORAL HEAD, BILATERAL performed by BARRERA OLIVER [facility] MAIN OR PRO REMOVAL DEEP IMPLANT 08/15/2010 REMOVAL IMPLANT, DEEP, BRUNO performed by BARRERA OLIVER at [facility] MAIN OR PRO REMOVAL ERUPTED TOOTH WITH ELEVATION OF MUCOPERIOSTEAL FLAP N/A 06/14/2018 SURGICAL EXTRACTIONS REQUIRING ELEVATION OF MUCOPERIOSTEAL FLAP AND REMOVAL OF BONE OR SECTION OF TOOTH (WRVU 1.09) performed by Keith Cotton MD at [facility] OSC PRO REMOVE INFUSN DEVICE/PUMP N/A 05/11/2014 REMOVAL OF SPINE INFUSION PUMP performed by Jamaal Samuel MD at [facility] MAIN OR PRO REMOVE SPINAL CANAL CATHETER N/A 05/11/2014 REMOVAL OF INTRATHECAL OR EPIDURAL CATHETER performed by Jamaal Samuel MD at [facility] MAIN OR PRO REPR, DURAL/CSF LEAK, NOT REQ LAMINECTOMY N/A 05/20/2014 @REPAIR DURAL\CSF LEAK,NOT REQUIRING LAMINECTOMY performed by Freddy Isbell MD at [facility] MAIN OR Social History and Habits: [...] PM EST Office [place] [address] Hollie Ambriz MD [facility] [place] [address] documented as of this encounter Procedures Procedure [...] mLs documented in this encounter Care Teams Drivers License Examiner Relationship Specialty Start Date End Date Lorna Bal APRN [address] [place] [address] PCP - General Family Medicine 05/27/18 documented as of this encounter
--- OUTSIDE RECORDS SUMMARY | 2024-01-12 21:13 | XMS_ITS | Encounter Summary ---
[place] [address] Care Team Providers Care Tunnel Elastic Operator Chainstitch Name Role Phone Lorna Bal APRN Primary Care Provider [phone] [phone] Reason for Visit * Occupational Therapy (Routine) - Closed Specialty Diagnoses / Procedures Referred By Karlo t Referred To Contact Occupational Therapy Diagnoses Chronic pain of right thumb Lucho Foster MD [facility] [place] [address] [facility] [place] [address] Referral ID Status Reason Start Date Expiration Date V isits Requested Visits Authorized [id number] Closed Consult Only 09/29/2023 09/28/2024 30 30 Encounter Details Date Type Department Care Team (Latest Contact Info) Description 09/29/2023 10:00 AM EDT Office [place] [address] Gaby Lake OT Spastic quadriparesis [...] with demonstration in therapy. 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
--- OUTSIDE RECORDS SUMMARY | 2024-01-12 21:13 | XMS_ITS | Encounter Summary ---
Author Organization [facility] Address [facility] [place] [address] Care Team Providers Care License Examiner Name Role Phone Lorna Bal APRN Primary Care Provider +1 [phone] Encounter Details Date Type Department Care Team (Late st Contact Info) Description 10/28/2023 Telephone [place] [address] Neva Thorpe, RN Social History Tobacco Use Types Packs/Day Years Used Date Smoking Tobacco: Never Passive Smoke Exposure: Never Smokeless Tobacco: Never Comments:NO SMOKERS IN THE H OME Alcohol Use Standard Drinks/Week Comments No 0 (1 standard drink = 0.6 oz pur e alcohol) [facility] Utilities Answer Date Recorded In the past 12 months has e [employer], gas, oil, or water Resolver threatened to shut off services in your [...] time in the past 12 m [facility], were you homeless or living [...] EST Office Visit [place] [address] Hollie Ambriz MD [facility] [place] [address] documented as of this encounter Visit Diagnoses Not on filedocumented in this encounter Care Teams License Examiner Relationship Specialty Start Date End Date Lorna Bal APRN [address] [place] [address] PCP - General Family Medicine 05/27/18 documented as of this encounter
--- OUTSIDE RECORDS SUMMARY | 2024-01-12 21:14 | XMS_ITS | Encounter Summary ---
[place] [address] Care Team Providers Care Journeyman Plumber Name Role Phone Lorna Bal APRN Primary Care Provider [phone] [phone] Encounter Details Date Type Department Care Team [...] PM EST Office [place] [address] Hollie Ambriz MD [facility] [place] [address] documented as of this encounter Visit Diagnoses Not on filedocumented in this encounter Care Teams Journeyman Plumber Relationship Specialty Start Date End Date Lorna Bal APRN [address] [place] [address] PCP - General Family Medicine 05/27/18 documented as of this encounter
--- OUTSIDE RECORDS SUMMARY | 2024-01-12 21:14 | XMS_ITS | Encounter Summary ---
Author Organization [facility] Address [facility] [place] [address] Care Team Providers Care Environmental Services Technician Name Role Phone Lorna Bal APRN Primary Care Provider [phone] [phone] Encounter Details Date Type Department Care Team (Late st Contact Info) Description 08/05/2023 10:15 AM EDT - 08/05/2023 11:00 AM EDT [place] [address] Jamar Gastelum MD [facility] [place] [address] COLONOSCOPY FLEXIBLE, WITH BX (WRVU 3.56) Social [...] occurs, please contact your Doctor. Please call [phone] before 8pm Mon-Fri with problems, questions or concerns. If you call after 8pm or on weekends, call the Hospital at [phone] and ask to speak to the Technical Services Librarian detention sergeant and the sugar reprocess operator head will contact that person for you. When [...] any problems. Where can you learn more? [facility] View your After Visit Summary and more online at [email or web address] If you would like to provide feedback about your hospital experience, please call the Office of Patient and Family Relations at . If you have received this After Visit Summary in error, please immediately return it in person to the department, or notify the [facility] Privacy Office by calling toll free at between the hours of 8AM and 5PM to arrange for our retrieval of the documents at no cost to you. Content Version: 12.2 ?? [id number] [employer]. Care instructions adapted under license by [facility]. If you have questions about a medical condition or this instruction, always ask your healthcare professional. [employer] disclaims any warranty or liability for your [...] Gastelum MD - 08/05/2023 10:35 AM EDT [facility] Operative Note Patient Name: Tana Cavazos : [id number] MR#: [id number] Case Date: 08/05/2023 Surgeon: Surgeon(s) and Role: [...] PM EST Office [place] [address] Hollie Ambriz MD [facility] [place] [address] documented as of this encounter Procedures Procedure Name Priority Date/Time Associated Diagnosis Comments SPECIMEN TO PATHOLOGY Routine 08/05/2023 11:01 AM EDT SURGICAL PATHOLOGY REPORT Routine 08/05/2023 11:00 AM EDT Colonoscopy, Biopsy ([id number]) 08/05/2023 10:27 AM EDT Constipation, unspecified constipation type COLONOSCOPY Routine 08/05/2023 9:59 AM EDT documented in this encounter Results * Specimen to Pathology (08/05/2023 11:01 AM EDT) AP Specimen 08/05/2023 11:0 1 AM EDT 08/05/2023 11:01 AM EDT Narrative [facility] - 08/05/2023 11:01 AM EDT Specimen requisition ordered. ??Separate Pathology report to follow Jamar Hair MD PATHOLOGY/CYTOLO GY ORDERABLES [facility] [place] [address] * Surgical Pathology Report (08/05/2023 11:00 AM EDT) Final Diagnosis [id number] ? Location: 4T; EA11; A The signing pathologist has (i) examined the relevant preparation(s) for the specimen(s) and (ii) rendered or confirmed the diagnosis(es). . ?Surgical Pathology DIAGNOSIS A - Rectum r/o microscopic colitis, biopsy (Multiple): - ??Colonic mucosa within normal limits. CR-PX Electronically signed by: ?Jazmyne GIRALDO PhD, Courtney Verified: ??08/17/2023 16:08 ??Pathologist Performed at: ??-[facility] Dept. of Pathology, [place] [address] Pneumatic System Conveyor Operator: Frank Turpin MD, FCAP, ??CLIA Certificate: [id number] SPECIMEN(S) SUBMITTED A - rectum r/o microscopic colitis, biopsy (Multiple) CLINICAL INFORMATION 28-year-old female with chronic constipation SPECIMEN PROCESSING A - Labeled/Fixative : Rectum rule out microscopic colitis, formalin. Quantity/Size: Multiple, averaging 0.3 cm. Tissue Description: Soft, red tissues. Sections/Process ing: Submitted in toto ??in 2 cassettes labeled A1-A2. ??sns 08/17/2023 4:08 PM EDT [facility] GI Biopsy 08/05/2023 11:0 0 AM EDT 08/05/2023 11:00 AM EDT Jamar Hair MD PATHOLOGY/CYTOLO GY ORDERABLES [facility] [place] [address] * COLONOSCOPY (08/05/2023 9:59 AM EDT) COLONOSCOPY [facility] Endoscopy ___ Procedure Date: 08/05/2023 9:59 AM ? Patient Name: Tana Cavazos ? Date of : 1995 ? Age: 28 ? Order #: [id number] ? Instrument Name: [id number]- [id number] ? ___ Procedure: ? Colonoscopy Indications: ? [...] Active and Recently Administered Medications Care Teams Environmental Services Technician Relationship Specialty Start Date End Date Lorna Bal APRN [address] [place] [address] PCP - General Family Medicine 05/27/18 documented as of this encounter
--- OUTSIDE RECORDS SUMMARY | 2024-01-12 21:14 | XMS_ITS | Encounter Summary ---
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 Followed up with in [place]. MRI was not possible sec. To hardware. CRP/ESR was trending upwards. NSG referred her to [facility] for surgery. The patient went to the [...] liquefied hematoma or abscess. Neurosurgeon recommended continuing forensics team director suppressive antibiotics. Subjective: We called and talked [...] Tipton MD Infectious Diseases Fellow- [email or web address] Pager: [phone] 07/01/2023 5:26 PM Plan discussed with Dr. Nikolay Toledo This note was created using [employer]) voice recognition software. * Nikolay Toledo MD [...] I am not in favor of continuing skilled nursing suppressive antibiotics. 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
--- OUTSIDE RECORDS SUMMARY | 2024-01-12 21:14 | XMS_ITS | Encounter Summary ---
Author Organization [facility] [place] [address] Care Team Providers Care Chief Yeoman Name Role Phone Lorna Bal APRN Primary Care Provider [phone] [phone] Encounter Details Date Type Department Care Team (Late st Contact Info) Description 03/30/2023 Telephone [place] [address] Halima García Social History Tobacco Use Types [...] 8:44 AM EST Erika - pharmacist CB: [phone] [facility] [place], [place] - [address] [facility]. Erika from [facility] called Dr. Tipton isn't setup with [place] medicaid so the script for bactrim won't go through. The pharmacy is requesting a new script from the attending. Thanks Halima documented in this encounter Plan of Treatment Upcoming Encounters Date Type Department Care Team (Late st Contact Info) Description 06/02/2024 12:30 PM EST Office [place] [address] Hollie Ambriz MD [facility] [address] documented as of this encounter Visit Diagnoses Not on filedocumented in this encounter Care Teams Chief Yeoman Relationship Specialty Start Date End Date Lorna Bal APRN [address] [place] [address] PCP - General Family Medicine 05/27/18 documented as of this encounter
--- OUTSIDE RECORDS SUMMARY | 2024-01-12 21:14 | XMS_ITS | Encounter Summary ---
[place] [address] Care Team Providers Care Electrical Tests Supervisor Name Role Phone Lorna Bal APRN Primary Care Provider [phone] [phone] Encounter Details Date Type Department Care Team (Latest Contact Info) Description 04/16/2023 4:05 PM EST Laboratory Appointment Lab [address] [place] [phone] Spinal abscess Social History Tobacco Use Types [...] PM EST Office [place] [address] Hollie Ambriz MD [facility] DR INFECTIOUS DISEASE [place] [id number] documented as of this encounter Procedures Procedure Name Priority Date/Time Associated Diagnosis Comments CRP, ACUTE INFLAMMATION Routine 04/16/2023 4:20 PM EST Spinal abscess BILIRUBIN, DIRECT Routine 04/16/2023 4:2 0 PM EST COMPREHENSIVE METABOLIC PANEL Routine 04/16/2023 4:20 PM EST Spinal abscess documented in this encounter Results * Bilirubin, Direct (04/16/2023 4:20 PM EST) Bilirubin, Direct <0.1 0.0 - 0.3 mg/dL [facility] Blood 04/16/2023 4:20 PM EST 04/16/2023 4:28 PM EST Narrative Resulting Agency Comment Spec In Lab George Tipton MD CHEMISTRY ORDERABLES [facility] [place] [address] * (ABNORMAL) Comprehensive metabolic panel (non-fasting) (04/16/2023 4:20 PM EST) Glucose 79 65 - 199 mg/dL [facility] Comment:Diabetes: >=200 mg/d L plus symptoms Blood Urea Nitrogen 10 8 - 18 mg/dL [facility] Creatinine 0.49(L) 0.70 - 1.20 mg/dL [facility] Sodium 137 135 - 145 mmol/L [facility] Potassium 3.8 3.5 - 5.0 mmol/L [facility] Comment: Please note: ??Patients with WBC >100,000 may have falsely elevated Potassium levels. ??For accurate Potassium quantification in these patients send serum separator tube (gold top) for subsequent determinations. ??Contact the Clinical Chemistry Laboratory if there are any questions. Chloride 99 98 - 107 mmol/L [facility] Carbon Dioxide 27 22 - 31 mmol/L [facility] Anion Gap 11 5 - 15 mmol/L [facility] Calcium 9.4 8.5 - 10.5 mg/dL [facility] Protein, Total 7.9 6.1 - 8.0 g/dL [facility] Albumin 4.2 3.2 - 5.2 g/dL [facility] Aspartate Aminotransferase 15 0 - 30 unit/L [facility] Alanine Aminotransferase 40(H) 0 - 30 unit/L [facility] Alkaline Phosphatase 320(H) 35 - 105 unit/L [facility] Bilirubin, Total <0.2(L) 0.2 - 1.3 mg/dL [facility] Est Glomerular Filtration Rate 131 >=60 mL/min/1. 73 m?? [facility] Comment: This patient's estimated [...] Lab Keri Trevino MD CHEMISTRY ORDERABLE S [facility] [place] [address] * (ABNORMAL) CRP, acute inflammation (04/16/2023 4:20 PM EST) C-Reactive Protein 47.2(H) <=4.9 mg/L [facility] Blood 04/16/2023 4:20 PM EST 04/16/2023 4:28 PM EST Narrative Resulting Agency Comment Spec In Lab Keri Trevino MD CHEMISTRY ORDERABLE S [facility] [place] [address] documented in this encounter Visit Diagnoses Diagnosis Spinal abscess Acute osteomyelitis, other specified site documented in this encounter Care Teams Electrical Tests Supervisor Relationship Specialty Start Date End Date Lorna Bal APRN [address] [place] [address] PCP - General Family Medicine 05/27/18 documented as of this encounter
--- OUTSIDE RECORDS SUMMARY | 2024-01-12 21:14 | XMS_ITS | Encounter Summary ---
Author Organization [facility] [place] [address] Care Team Providers Care Resource Room Special Education Teacher Name Role Phone Lorna Bal APRN Primary Care Provider +1 [phone] Encounter Details Date Type Department Care Team (Late st Contact Info) Description 06/12/2023 Telephone [place] [address] Tobi Luna Social History Tobacco Use Types [...] PM EST Office Visit [place] [address] Hollie Ambriz MD [facility] [place] [address] documented as of this encounter Visit Diagnoses Not on filedocumented in this encounter Care Teams Resource Room Special Education Teacher Relationship Specialty Start Date End Date Lorna Bal APRN [address] [place] [address] PCP - General Family Medicine 05/27/18 documented as of this encounter
--- OUTSIDE RECORDS SUMMARY | 2024-01-12 21:14 | XMS_ITS | Encounter Summary ---
Author Organization [facility] [place] [address] Care Team Providers Care Loom Fixer Apprentice Name Role Phone Lorna Bal APRN Primary Care Provider +1 -[phone] Encounter Details Date Type Department Care Team (Late st Contact Info) Description 12/25/[address] [place] [address] Sirisha Patino Social History Tobacco Use Types [...] PM EST Office Visit [place] [address] Hollie Ambriz MD [facility] [place] [address] documented as of this encounter Visit Diagnoses Not on filedocumented in this encounter Care Teams Loom Fixer Apprentice Relationship Specialty Start Date End Date Lorna Bal, [place] [address] [place] [address] PCP - General Family Medicine 05/27/18 documented as of this encounter
--- OUTSIDE RECORDS SUMMARY | 2024-01-12 21:14 | XMS_ITS | Encounter Summary ---
Author Organization [facility] [place] [address] Care Team Providers Care Measurement Psychologist Name Role Phone Lorna Bal APRN Primary Care Provider +1 -[phone] Reason for Referral * Diagnostic Test (Routine) - Closed Specialty Diagnoses / Procedures Referred By Contac t Referred To Contact Radiology Diagnoses Spinal abscess Procedures CT Lumbar Spine w Contrast George Tipton MD [facility] [place] [address] [facility] [place] [address] Referral ID Status Reason Start Date Expiration Date V isits Requested Visits Authorized [id number] Closed Specialty Service Requested 04/15/2023 10/14/2024 1 1 Reason for Visit * Diagnostic Test (Routine) - Closed Specialty Diagnoses / Procedures Referred By Contac t Referred To Contact Radiology Diagnoses Spinal abscess Procedures CT Lumbar Spine w Contrast George Tipton MD [facility] [place] [address] [facility] [place] [address] Referral ID Status Reason Start Date Expiration Date V isits Requested Visits Authorized [id number] Closed Specialty Service Requested 04/15/2023 10/14/2024 1 1 Encounter Details Date Type Department Care Team (Latest Contact Info) Description 04/16/2023 3:10 PM EST - 04/16/2023 11:59 PM EST Hospital [place] [address] [place] [address] Spinal abscess Discharge Disposition: Home [...] PM EST Office [place] [address] Hollie Ambriz MD [facility] [place] [address] documented as of this encounter Procedures Procedure [...] who have questions please contact the health personal care service provider that requested your imaging first. ? [...] patients who have questions please contactthe health personal care service provider that requested your imaging first. Keri Trevino [...] mLs documented in this encounter Care Teams Measurement Psychologist Relationship Specialty Start Date End Date Lorna Bal APRN [address] [place] [address] PCP - General Family Medicine 05/27/18 documented as of this encounter
--- OUTSIDE RECORDS SUMMARY | 2024-01-12 21:14 | XMS_ITS | Encounter Summary ---
Author Organization [facility] [place] [address] Care Team Providers Care Sapphire Stylus Grinder Name Role Phone Lorna Bal APRN Primary Care Provider +1 -[phone] Encounter Details Date Type Department Care Team (Late st Contact Info) Description 08/11/2023 Telephone [place] [address] Halima García Social History Tobacco Use Types [...] (Bactrim) 400-80 mg tablet. Please send to: [facility] [place], [place] - [address] [facility] documented in this encounter Plan of Treatment Upcoming Encounters Date Type Department Care Team (Late st Contact Info) Description 06/02/2024 12:30 PM EST Office Visit [place] [address] Hollie Ambriz MD [facility] [place] [address] documented as of this encounter Visit Diagnoses Not on filedocumented in this encounter Care Teams Sapphire Stylus Grinder Relationship Specialty Start Date End Date Lorna Bal APRN [address] [place] [address] PCP - General Family Medicine 05/27/18 documented as of this encounter
--- OUTSIDE RECORDS SUMMARY | 2024-01-12 21:14 | XMS_ITS | Encounter Summary ---
Author [place] [address] Care Team Providers Care Javascript Ui Developer Name Role Phone Lorna Bal APRN Primary Care Provider +1 -[phone] Encounter Details Date Type Department Care Team [...] PM EST Office Visit [place] [address] Hollie Ambriz MD [facility] [place] [address] documented as of this encounter Visit Diagnoses Not on filedocumented in this encounter Care Teams Javascript Ui Developer Relationship Specialty Start Date End Date Lorna Bal APRN [address] [place] [address] PCP - General Family Medicine 05/27/18 documented as of this encounter
--- OUTSIDE RECORDS SUMMARY | 2024-01-12 21:14 | XMS_ITS | Encounter Summary ---
[place] [address] Care Team Providers Care Monkey Breeder Name Role Phone Lorna Bal APRN Primary Care Provider +1 -[phone] Encounter Details Date Type Department Care Team [...] PM EST Office Visit [place] [address] Hollie Ambriz MD [facility] [place] [address] documented as of this encounter Visit Diagnoses Not on filedocumented in this encounter Care Teams Monkey Breeder Relationship Specialty Start Date End Date Lrona Bal APRN [address] [place] [address] PCP - General Family Medicine 05/27/18 documented as of this encounter
--- OUTSIDE RECORDS SUMMARY | 2024-01-12 21:14 | XMS_ITS | Encounter Summary ---
Author Organization [facility] [place] [address] Care Team Providers Care Family Service Worker Name Role Phone Lorna Bal APRN Primary Care Provider +1 -[phone] Encounter Details Date Type Department Care Team (Latest Contact Info) Description 08/24/2023 9:00 AM EDT TH Visit (TeleHealth) [place] [phone] Samantha Crystal APRN [facility] [place] [address] Constipation, unspecified constipation type Social History Tobacco [...] this encounter Progress Notes * Samantha Crystal, CANDY DECORATOR - 08/24/2023 9:00 AM EDT Gastroenterology Follow Up Telehealth Note Ms. Tana Cavazos is a 28 y.o. female who presents to the section of Gastroenterology for follow upfor constipation. Interval Update: -Here today with Fernanda her reproduction machine loader. -Since her colonoscopy her bowels have been [...] Procedures 06/25/2022 Mich Martino MD [facility] INTERVENTIONL RAD IR ALL DRAINAGE PROCEDURES 07/04/2022 IR All Drainage Procedures 07/04/2022 Mich Martino MD [facility] INTERVENTIONL RAD IR ALL DRAINAGE PROCEDURES 07/24/2022 IR All Drainage Procedures 07/24/2022 Anurag Kumar MD [facility] INTERVENTIONL RAD IR ALL DRAINAGE PROCEDURES 09/26/2022 IR All Drainage Procedures 09/26/2022 Jamaal Jenkins, DO [facility] INTERVENTIONL RAD IR DRAIN CHECK/CHANGE/REMOVE 07/01/2022 IR Drain Check/Change/Remove 07/01/2022 Jamaal Jenkins, DO [facility] INTERVENTIONL RAD IR DRAIN CHECK/CHANGE/REMOVE 08/11/2022 IR Drain Check/Change/Remove 08/11/2022 Piter Self MD [facility] INTERVENTIONL RAD IR DRAIN CHECK/CHANGE/REMOVE 08/25/2022 IR Drain Check/Change/Remove 08/25/2022 Jamaal Jenkins, DO [facility] INTERVENTIONL RAD IR DRAIN CHECK/CHANGE/REMOVE 09/10/2022 IR Drain Check/Change/Remove 09/10/2022 Mich Martino MD [facility] INTERVENTIONL RAD PRO APPLY OF HIP CASTS, TWO LEGS 08/15/2010 CAST APPLICATION, HIP SPICA, BOTH LEGS performed by BARRERA OLIVER at [facility] MAIN OR PRO COLONOSCOPY, BIOPSY N/A 08/05/2023 COLONOSCOPY FLEXIBLE, WITH BX (WRVU 3.56) performed by Jamar Gastelum MD at [facility] ENDOSCOPY PRO I&D, POST SPINE, LUMB/SACR/LUMBOSAC N/A 05/20/2014 @I & D, OPEN, DEEP ABSCESS, LUMBAR, SACRAL, LUMBOSACRAL performed by Freddy Isbell MD at [facility] MAIN OR PRO I&D, POST SPINE, LUMB/SACR/LUMBOSAC N/A 05/26/2014 @I & D, OPEN, DEEP ABSCESS, LUMBAR, SACRAL, LUMBOSACRAL performed by Freddy Isbell MD at [facility] MAIN OR PRO IMPACT TOOTH REMOV COMP BONY N/A 06/14/2018 SURGICAL EXTRACTIONS, REMOVAL OF IMPACTED TOOTH, COMPLETELY BONY (WRVU 1.93) performed by Keith Cotton MD at [facility] OSC PRO OSTEOTOMY FEMUR SHAFT/SUPRACONDY 08/15/2010 ??OSTEOTOMY, FEMUR SHAFT OR SUPRACONDYLAR W/O FIXATION performed by BARRERA OLIVER at [facility] OR PRO RECONSTRUC HIP SOCKET, RESEC FEM HEAD 08/15/2010 ??ACETABULOPLASTY (GIRDLESTONE), RESECTION FEMORAL HEAD, BILATERAL performed by BARRERA OLIVER [facility] MAIN OR PRO REMOVAL DEEP IMPLANT 08/15/2010 REMOVAL IMPLANT, DEEP, BRUNO performed by BARRERA OLIVER at [facility] MAIN OR PRO REMOVAL ERUPTED TOOTH WITH ELEVATION OF MUCOPERIOSTEAL FLAP N/A 06/14/2018 SURGICAL EXTRACTIONS REQUIRING ELEVATION OF MUCOPERIOSTEAL FLAP AND REMOVAL OF BONE OR SECTION OF TOOTH (WRVU 1.09) performed by Keith Cotton MD at [facility] OSC PRO REMOVE INFUSN DEVICE/PUMP N/A 05/11/2014 REMOVAL OF SPINE INFUSION PUMP performed by Jamaal Samuel MD at [facility] MAIN OR PRO REMOVE SPINAL CANAL CATHETER N/A 05/11/2014 REMOVAL OF INTRATHECAL OR EPIDURAL CATHETER performed by Jamaal Samuel MD at [facility] MAIN OR PRO REPR, DURAL/CSF LEAK, NOT REQ LAMINECTOMY N/A 05/20/2014 @REPAIR DURAL\CSF LEAK,NOT REQUIRING LAMINECTOMY performed by Freddy Isbell MD at [facility] MAIN OR MEDICATIONS: Current Outpatient Medications Medication [...] [Transparent Dressings] Itching and Dermatitis Please use [id number] Cyclobenzaprine Other Reaction(s): Not available Doxycycline Other [...] go to [facility] ([facility] and [facility]). I will need to [...] office visit: 5 minutes Samantha Crystal, MSN, CANDY DECORATOR, DRAPERY CUTTER-C Section of Gastroenterology [place] [address] documented in this encounter Plan of Treatment Upcoming Encounters Date Type Department Care Team (Late st Contact Info) Description 06/02/2024 12:30 PM EST Office Visit [place] [address] Hollie Ambriz MD [facility] [address] [place] [address] documented as of this encounter Visit Diagnoses Diagnosis Constipation, unspecified constipation type documented in this encounter Care Teams Family Service Worker Relationship Specialty Start Date End Date Lorna Bal APRN [address] [place] [address] PCP - General Family Medicine 05/27/18 documented as of this encounter
--- OUTSIDE RECORDS SUMMARY | 2024-01-12 21:14 | XMS_ITS | Encounter Summary ---
[place] [address] Care Team Providers Care Security Risk Analyst Name Role Phone Lorna Bal APRN Primary Care Provider +1 [phone] Reason for Referral * Consultation (Urgent) - Closed Specialty Diagnoses / Procedures Referred By Contac t Referred To Contact Infectious Diseases Diagnoses Osteomyelitis, unspecified site, unspecified type Spinal cord abscess Lorna Bal APRN [address] [place] [address] [facility] [address] [place] [id number] Referral ID Status Reason Start Date Expiration Date V isits Requested Visits Authorized [id number] Closed Consult, Test & Treat PCP Updated and/or Approved 12/23/2022 12/23/2023 6 6 Encounter Details Date Type Department Care Team (Latest Contact Info) Description 12/23/2022 Transcribe Orders eDH Incoming Referrals [phone] Lorna Bal APRN [address] [place] [address] Osteomyelitis, unspecified site, unspecified type; [...] PM EST Office Visit [place] [address] [facility] [place] [address] Scheduled Referrals Name Type Priority Associated Diagnoses Order Schedule Referral to Infectious Disease and [facility] Outpatient Referral Urgent Osteomyelitis, unspecified site, unspecified type Spinal cord abscess Ordered: 12/23/2022 documented as of this encounter Visit Diagnoses Diagnosis Osteomyelitis, unspecified site, unspecified type Spinal cord abscess Acute osteomyelitis, other specified site documented in this encounter Care Teams Security Risk Analyst Relationship Specialty Start Date End Date Lorna Bal APRN [address] [place] [address] PCP - General Family Medicine 05/27/18 documented as of this encounter
--- OUTSIDE RECORDS SUMMARY | 2024-01-12 21:14 | XMS_ITS | Encounter Summary ---
Author Organization [facility] [place] [address] Care Team Providers Care Sail Finisher Hand Name Role Phone Lorna Bal APRN Primary Care Provider +1 -[phone] Encounter Details Date Type Department Care Team (Late st Contact Info) Description 06/17/2023 Telephone [place] [phone] Tobi Luna Social History Tobacco Use Types [...] - 06/17/2023 10:02 AM EST Tana Cavazos [id number] Diagnosis/Indication: Chronic constipation and anemia Please review [...] your procedure. Who will likely be your otr truck driver for the procedure? *Please Verify the [...] Office [place] [address] Hollie Ambriz MD [facility] [place] [address] documented as of this encounter Visit Diagnoses Not on filedocumented in this encounter Care Teams Sail Finisher Hand Relationship Specialty Start Date End Date Lorna Bal APRN [address] [place] [address] PCP - General Family Medicine 05/27/18 documented as of this encounter
--- OUTSIDE RECORDS SUMMARY | 2024-01-12 21:14 | XMS_ITS | Encounter Summary ---
[place] [address] Care Team Providers Care Manual Equipment Mechanic Name Role Phone Lorna Bal APRN Primary Care Provider +1 -[phone] Encounter Details Date Type Department Care Team [...] PM EST Office [place] [phone] Hollie Ambriz MD [facility] [place] [address] documented as of this encounter Visit Diagnoses Not on filedocumented in this encounter Care Teams Manual Equipment Mechanic Relationship Specialty Start Date End Date Lorna Bal APRN [address] [place] [address] PCP - General Family Medicine 05/27/18 documented as of this encounter
--- OUTSIDE RECORDS SUMMARY | 2024-01-12 21:14 | XMS_ITS | Encounter Summary ---
Author Organization [facility] [place] [address] Care Team Providers Care Vending Service Technician Name Role Phone Lorna Bal APRN Primary Care Provider +1 -[phone] Encounter Details Date Type Department Care Team (Late st Contact Info) Description 01/29/2023 1:00 PM EDT Office [place] [phone] Reji Macdonald MD [facility] [place] [address] Spinal abscess Social History Tobacco Use Types [...] her postoperative care for planned operation and [place]. She is here with her caregivers but her mother is her legal guardian. She has been seen at [facility] been seen by the orthopedic team and infectious diseases for extended periods of time. It is unclear as to what the long-term plan was for management of thisbut eventually apparently she made it to [place] after referral by infectious disease and then subsequently was referred to [place]. At that point time she was seen [...] MD [facility] INTERVENTIONL RAD IR ALL DRAINAGE PROCEDURES 07/04/2022 IR All Drainage Procedures 07/04/2022 Mich Martino MD [facility] INTERVENTIONL RAD IR ALL DRAINAGE PROCEDURES 07/24/2022 IR All Drainage Procedures 07/24/2022 Anurag Kumar MD [facility] INTERVENTIONL RAD IR ALL DRAINAGE PROCEDURES 09/26/2022 IR All Drainage Procedures 09/26/2022 Jamaal Jenkins, DO [facility] INTERVENTIONL RAD IR DRAIN CHECK/CHANGE/REMOVE 07/01/2022 IR Drain Check/Change/Remove 07/01/2022 Jamaal Jenkins, DO [facility] INTERVENTIONL RAD IR DRAIN CHECK/CHANGE/REMOVE 08/11/2022 IR Drain Check/Change/Remove 08/11/2022 Piter Self MD [facility] INTERVENTIONL RAD IR DRAIN CHECK/CHANGE/REMOVE 08/25/2022 IR Drain Check/Change/Remove 08/25/2022 Jamaal Jenkins, DO [facility] INTERVENTIONL RAD IR DRAIN CHECK/CHANGE/REMOVE 09/10/2022 IR Drain Check/Change/Remove 09/10/2022 Mich Martino MD [facility] INTERVENTIONL RAD PRO APPLY OF HIP CASTS, TWO LEGS 08/15/2010 CAST APPLICATION, HIP SPICA, BOTH LEGS performed by BARRERA OLIVER at [facility] MAIN OR PRO I&D, POST SPINE, LUMB/SACR/LUMBOSAC N/A 05/20/2014 @I & D, OPEN, DEEP ABSCESS, LUMBAR, SACRAL, LUMBOSACRAL performed by Freddy Isbell MD at [facility] MAIN OR PRO I&D, POST SPINE, LUMB/SACR/LUMBOSAC N/A 05/26/2014 @I & D, OPEN, DEEP ABSCESS, LUMBAR, SACRAL, LUMBOSACRAL performed by Freddy Isbell MD at [facility] MAIN OR PRO IMPACT TOOTH REMOV COMP BONY N/A 06/14/2018 SURGICAL EXTRACTIONS, REMOVAL OF IMPACTED TOOTH, COMPLETELY BONY (WRVU 1.93) performed by Keith Cotton MD at [facility] OSC PRO OSTEOTOMY FEMUR SHAFT/SUPRACONDY 08/15/2010 ??OSTEOTOMY, FEMUR SHAFT OR SUPRACONDYLAR W/O FIXATION performed by BARRERA OLIVER at [facility] MAIN OR PRO RECONSTRUC HIP SOCKET, RESEC FEM HEAD 08/15/2010 ??ACETABULOPLASTY (GIRDLESTONE), RESECTION FEMORAL HEAD, BILATERAL performed by BARRERA OLIVER [facility] MAIN OR PRO REMOVAL DEEP IMPLANT 08/15/2010 REMOVAL IMPLANT, DEEP, BRUNO performed by BARRERA OLIVER at [facility] MAIN OR PRO REMOVAL ERUPTED TOOTH WITH ELEVATION OF MUCOPERIOSTEAL FLAP N/A 06/14/2018 SURGICAL EXTRACTIONS REQUIRING ELEVATION OF MUCOPERIOSTEAL FLAP AND REMOVAL OF BONE OR SECTION OF TOOTH (WRVU 1.09) performed by Keith Cotton MD at [facility] OSC PRO REMOVE INFUSN DEVICE/PUMP N/A 05/11/2014 REMOVAL OF SPINE INFUSION PUMP performed by Jamaal Samuel MD at [facility] MAIN OR PRO REMOVE SPINAL CANAL CATHETER N/A 05/11/2014 REMOVAL OF INTRATHECAL OR EPIDURAL CATHETER performed by Jamaal Samuel MD at [facility] MAIN OR PRO REPR, DURAL/CSF LEAK, NOT REQ LAMINECTOMY N/A 05/20/2014 @REPAIR DURAL\CSF LEAK,NOT REQUIRING LAMINECTOMY performed by Freddy Isbell MD at [facility] MAIN OR Social History Socioeconomic [...] [Transparent Dressings] Itching and Dermatitis Please use [id number] Cyclobenzaprine Other Reaction(s): Not available Penicillins Current [...] PM EST Office [place] [address] Hollie Ambriz MD [facility] [place] [address] documented as of this encounter Visit Diagnoses Diagnosis Spinal abscess Acute osteomyelitis, other specified site documented in this encounter Care Teams Vending Service Technician Relationship Specialty Start Date End Date Lorna Bal APRN [address] [place] [address] PCP - General Family Medicine 05/27/18 documented as of this encounter
--- OUTSIDE RECORDS SUMMARY | 2024-01-12 21:14 | XMS_ITS | Encounter Summary ---
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, other site Procedures CT Thoracic Spine wo Contrast (Generic) Lorna Bal APRN [address] [place] [address] [facility] [place] [address] Referral ID Status Reason Start Date Expiration Date V isits Requested Visits Authorized [id number] Closed Specialty Service Requested 12/25/2022 06/24/2024 1 1 * Diagnostic Test (Routine) - Closed Specialty Diagnoses / Procedures Referred By Contac t Referred To Contact Radiology Diagnoses Cerebral palsy, unspecified type 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, other site Procedures CT Cervical Spine wo Contrast Lorna Bal APRN [address] [place] [address] [facility] [place] [address] Referral ID Status Reason Start Date Expiration Date V isits Requested Visits Authorized [id number] Closed Specialty Service Requested 12/25/2022 06/24/2024 1 1 Reason for Visit * Diagnostic Test (Routine) - Closed Specialty Diagnoses / Procedures Referred By Contmonica t Referred To Contact Radiology Diagnoses Cerebral palsy, unspecified type 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, other site Procedures CT Cervical Spine wo Contrast Lorna Bal APRN [address] [place] [address] [facility] [place] [address] Referral ID Status Reason Start Date Expiration Date V isits Requested Visits Authorized [id number] Closed Specialty Service Requested 12/25/2022 06/24/2024 1 1 Encounter Details Date Type Department Care Team (Latest Contact Info) Description 12/31/2022 10:50 AM EDT - 12/31/2022 11:59 PM EDT Hospital [place] [address] Lorna Bal APRN [address] [place], [place] [id number] Cerebral palsy, unspecified type; Congenital deformity of [...] PM EST Office [place] [address] Hollie Ambriz MD [facility] [place] [address] documented as of this encounter Procedures Procedure [...] have questions please contact the health manager critical care that requested your imaging first. ? Electronically signed by: Svitlana Mcbride [facility] ([phone]), at 12/31/2022 4:00 PM Narrative 12/31/2022 4:00 [...] who have questions please contactthe health manager critical care that requested your imaging first. Electronically signed by: Svitlana Mcbride [facility]([phone]), at 12/31/2022 4:00 PM Lorna Bal APRN [...] have questions please contact the health manager critical care that requested your imaging first. ? Electronically signed by: Svitlana Mcbride [facility] ([phone]), at 12/31/2022 4:00 PM Narrative 12/31/2022 4:00 [...] who have questions please contactthe health manager critical care that requested your imaging first. 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
--- OUTSIDE RECORDS SUMMARY | 2024-01-12 21:14 | XMS_ITS | Encounter Summary ---
Author Organization [place] [address] Care Team Providers Care Commercial Ocean Clammer Name Role Phone Lorna Bal APRN Primary Care Provider +1 [phone] Encounter Details Date Type Department Care Team (Late st Contact Info) Description 04/03/2023 Telephone Infectious [place] [phone] Halima García Social History Tobacco Use Types [...] the lab orders were never sent to [facility]. I reviewed the lab orders and she mentioned the ESR was missing. Jack Varghese documented in this encounter Plan of Treatment Upcoming Encounters Date Type Department Care Team (Late st Contact Info) Description 06/02/2024 12:30 PM EST Office Visit [place]ious [place] [address] Hollie Ambriz MD [facility] [place] [address] documented as of this encounter Visit Diagnoses Diagnosis Spinal abscess Acute osteomyelitis, other specified site documented in this encounter Care Teams Commercial Ocean Clammer Relationship Specialty Start Date End Date Lorna Bal APRN [address] [place] [address] PCP - General Family Medicine 05/27/18 documented as of this encounter
--- OUTSIDE RECORDS SUMMARY | 2024-01-12 21:14 | XMS_ITS | Encounter Summary ---
Author Organization [facility] Address [facility] [place] [address] Care Team Providers Care Senior Net Architect Name Role Phone Valeriano Lorna Carvalho APRN Primary Care Provider +1 [phone] Encounter Details Date Type Department Care Team (Late st Contact Info) Description 08/05/2023 10:24 AM EDT Anesthesia Event [place] [phone] Christopher Johansen MD [facility] [place] [address] Buster Brooke Anesthesia Record Procedure Summary Procedure [...] 1042; metacarpal vein (top of hand), right; auuf-vpt-rmzqvk catheter system; 22 gauge; distraction, intradermal injection, tolerated well; LDA not present upon assessment; 10/29/23; 0840 09/26/22 1042 by Ramiro Aden LPN 10/29/23 0840 by Hank Christian RN Incision 09/26/22; 1328; Righ t; gluteal; non-laparascopic puncture; Aspiration site (Gregory, DO); LDA not present upon assessment; 10/29/23 09/26/22 1328 by Nathalie Hernández RN 10/29/23 0000 by Jaye Murry RN PIV 08/05/23; 1015; jvrz-mcz-brwoqc catheter system; 22 gauge; great saphenous vein [...] Procedure Summary Date: 08/05/23 Room / Location: [facility] 5 / [facility] Anesthesia Start: 1024 Anesthesia Stop: 110 Procedure: COLONOSCOPY FLEXIBLE, WITH BX (WRVU 3.56) (Trunk) Diagnosis: Constipation, unspecified constipation type (Colonoscopy- Chronic constipation and anemia) Surgeons: Jamar Gastelum MD Responsible Provider: Christopher Johansen MD Anesthesia Type: MAC ASA Status: 3 All Anesthesia Providers: Anesthesiologist: Christopher Johansen MD Student Nurse Operations Supervisor 2Nd Shift: Buster Brooke Vitals Value Taken Time BP 119/81 08/05/23 1125 Temp Pulse Resp 16 08/05/23 1125 SpO2 99 % 08/05/23 1127 Pain Level 0 08/05/23 1125 Vitals shown include unfiled device data. Patient Location: PACU/[facility] Level of Consciousness: Awake and Alert Pain [...] y.o. female. Procedure(s): [facility] Patient Active Problem List Diagnosis [...] All Drainage Procedures 06/25/2022 Mich Martino MD [facility] ??? IR ALL DRAINAGE PROCEDURES 07/04/2022 IR All Drainage Procedures 07/04/2022 Mich Martino MD [facility] ??? IR ALL DRAINAGE PROCEDURES 07/24/2022 IR All Drainage Procedures 07/24/2022 Anurag Kumar MD [facility] ??? IR ALL DRAINAGE PROCEDURES 09/26/2022 IR All Drainage Procedures 09/26/2022 Jamaal Jenkins, DO [facility] ??? IR DRAIN CHECK/CHANGE/REMOVE 07/01/2022 IR Drain Check/Change/Remove 07/01/2022 Jamaal Jenkins, DO [facility] ??? IR DRAIN CHECK/CHANGE/REMOVE 08/11/2022 IR Drain Check/Change/Remove 08/11/2022 Piter Self MD [facility] RAD ??? IR DRAIN CHECK/CHANGE/REMOVE 08/25/2022 IR Drain Check/Change/Remove 08/25/2022 Jamaal Jenkins, DO [facility] RAD ??? IR DRAIN CHECK/CHANGE/REMOVE 09/10/2022 IR Drain Check/Change/Remove 09/10/2022 Mich Martino MD [facility] ??? PRO APPLY OF HIP CASTS, TWO LEGS 08/15/2010 CAST APPLICATION, HIP SPICA, BOTH LEGS performed by BARRERA OLIVER at [facility] OR ? ? PRO I&D, POST SPINE, LUMB/SACR/LUMBOSAC N/A 05/20/2014 @I & D, OPEN, DEEP ABSCESS, LUMBAR, SACRAL, LUMBOSACRAL performed by Freddy Isbell MD at [facility] OR ? ? PRO I&D, POST SPINE, LUMB/SACR/LUMBOSAC N/A 05/26/2014 @I & D, OPEN, DEEP ABSCESS, LUMBAR, SACRAL, LUMBOSACRAL performed by Freddy Isbell MD at [facility] OR ??? PRO IMPACT TOOTH REMOV COMP BONY N/A 06/14/2018 SURGICAL EXTRACTIONS, REMOVAL OF IMPACTED TOOTH, COMPLETELY BONY (WRVU 1.93) performed by Keith Cotton MD at [facility] OSC ??? PRO OSTEOTOMY FEMUR SHAFT/SUPRACONDY 08/15/2010 ??OSTEOTOMY, FEMUR SHAFT OR SUPRACONDYLAR W/O FIXATION performed by BARRERA OLIVER at [facility] MAIN OR ??? PRO RECONSTRUC HIP SOCKET, RESEC FEM HEAD 08/15/2010 ??ACETABULOPLASTY (GIRDLESTONE), RESECTION FEMORAL HEAD, BILATERAL performed by BARRERA OLIVER [facility] MAIN OR ??? PRO REMOVAL DEEP IMPLANT 08/15/2010 REMOVAL IMPLANT, DEEP, BRUNO performed by BARRERA OLIVER at [facility] MAIN OR ??? PRO REMOVAL ERUPTED TOOTH WITH ELEVATION OF MUCOPERIOSTEAL FLAP N/A 06/14/2018 SURGICAL EXTRACTIONS REQUIRING ELEVATION OF MUCOPERIOSTEAL FLAP AND REMOVAL OF BONE OR SECTION OF TOOTH (WRVU 1.09) performed by Keith Cotton MD at [facility] OSC ??? PRO REMOVE INFUSN DEVICE/PUMP N/A 05/11/2014 REMOVAL OF SPINE INFUSION PUMP performed by Jamaal Samuel MD at [facility] MAIN OR ??? PRO REMOVE SPINAL CANAL CATHETER N/A 05/11/2014 REMOVAL OF INTRATHECAL OR EPIDURAL CATHETER performed by Jamaal Samuel MD at [facility] MAIN OR ??? PRO REPR, DURAL/CSF LEAK, NOT REQ LAMINECTOMY N/A 05/20/2014 @REPAIR DURAL\CSF LEAK,NOT REQUIRING LAMINECTOMY performed by Freddy Isbell MD at [facility] MAIN OR Social History Tobacco Use ??? Smoking status: Never ??? Smokeless tobacco: Never ??? Tobacco comments: NO SMOKERS IN THE HOME Substance Use Topics ??? Alcohol use: No Social History Substance and Sexual Activity Drug Use No Allergies Allergen Reactions ??? Fluoxetine Other (See Comments) HIVES, HEART RACES ??? Tegaderm [Transparent Dressings] Itching and Dermatitis Please use [id number] ??? Cyclobenzaprine Other Reaction(s): Not available ??? [...] risks discussed with patient. Plan discussed with LAUNDRY HELPER. Anesthesia Screening documented in this encounter Plan of Treatment Upcoming Encounters Date Type Department Care Team (Late st Contact Info) Description 06/02/2024 12:30 PM EST Office Visit [place] [phone] Hollie Ambriz MD [facility] [place] [address] documented as of this encounter Visit Diagnoses [...] mg documented in this encounter Care Teams Senior Net Architect Relationship Specialty Start Date End Date Lorna Bal, [place] [address] [place] [address] PCP - General Family Medicine 05/27/18 documented as of this encounter
--- OUTSIDE RECORDS SUMMARY | 2024-01-12 21:14 | XMS_ITS | Encounter Summary ---
Author Organization [facility] [place] [address] Care Team Providers Care Die Maker Electronic Name Role Phone Lorna Bal APRN Primary Care Provider [phone] [phone] Reason for Visit * Consultation (Routine) - Authorized Specialty Diagnoses / Procedures Referred By Karlo duarte Referred To Contact Gastroenterology Diagnoses Constipation, unspecified constipation type constipation Lorna Bal APRN [address] [place] [address] [facility] [address] [place] [address] Referral ID Status Reason Start Date Expiration Date Visits Requested Visits Authorized [id number] Authorized Consult, Test & Treat PCP Updated and/or Approved 01/30/2023 01/30/2024 12 12 Encounter Details Date Type Department Care Team (Latest Contact Info) Description 06/08/2023 9:00 AM EST TH Visit (TeleHealth) [place] [address] Samantha Crystal APRN [facility] [place] [address] Constipation, unspecified constipation type Social [...] [facility] IR ALL DRAINAGE PROCEDURES 07/04/2022 IR All Drainage Procedures 07/04/2022 Mich Martino MD [facility] RAD IR ALL DRAINAGE PROCEDURES 07/24/2022 IR All Drainage Procedures 07/24/2022 Anurag Kumar MD [facility] RAD IR ALL DRAINAGE PROCEDURES 09/26/2022 IR All Drainage Procedures 09/26/2022 Jamaal Jenkins, DO [facility] RAD IR DRAIN CHECK/CHANGE/REMOVE 07/01/2022 IR Drain Check/Change/Remove 07/01/2022 Jamaal Jenkins, DO [facility] RAD IR DRAIN CHECK/CHANGE/REMOVE 08/11/2022 IR Drain Check/Change/Remove 08/11/2022 Piter Self MD [facility] RAD IR DRAIN CHECK/CHANGE/REMOVE 08/25/2022 IR Drain Check/Change/Remove 08/25/2022 Jamaal Jenkins, DO [facility] RAD IR DRAIN CHECK/CHANGE/REMOVE 09/10/2022 IR Drain Check/Change/Remove 09/10/2022 Mich Martino MD [facility] RAD PRO APPLY OF HIP CASTS, TWO LEGS 08/15/2010 CAST APPLICATION, HIP SPICA, BOTH LEGS performed by BARRERA OLIVER at [facility] MAIN OR PRO I&D, POST SPINE, LUMB/SACR/LUMBOSAC N/A 05/20/2014 @I & D, OPEN, DEEP ABSCESS, LUMBAR, SACRAL, LUMBOSACRAL performed by Freddy Isbell MD at [facility] MAIN OR PRO I&D, POST SPINE, LUMB/SACR/LUMBOSAC N/A 05/26/2014 @I & D, OPEN, DEEP ABSCESS, LUMBAR, SACRAL, LUMBOSACRAL performed by Freddy Isbell MD at [facility] MAIN OR PRO IMPACT TOOTH REMOV COMP BONY N/A 06/14/2018 SURGICAL EXTRACTIONS, REMOVAL OF IMPACTED TOOTH, COMPLETELY BONY (WRVU 1.93) performed by Keith Cotton MD at [facility] OSC PRO OSTEOTOMY FEMUR SHAFT/SUPRACONDY 08/15/2010 ??OSTEOTOMY, FEMUR SHAFT OR SUPRACONDYLAR W/O FIXATION performed by BARRERA OLIVER at [facility] MAIN OR PRO RECONSTRUC HIP SOCKET, RESEC FEM HEAD 08/15/2010 ??ACETABULOPLASTY (GIRDLESTONE), RESECTION FEMORAL HEAD, BILATERAL performed by BARRERA OLIVER [facility] MAIN OR PRO REMOVAL DEEP IMPLANT 08/15/2010 REMOVAL IMPLANT, DEEP, BRUNO performed by BARRERA OLIVER at [facility] MAIN OR PRO REMOVAL ERUPTED TOOTH WITH ELEVATION OF MUCOPERIOSTEAL FLAP N/A 06/14/2018 SURGICAL EXTRACTIONS REQUIRING ELEVATION OF MUCOPERIOSTEAL FLAP AND REMOVAL OF BONE OR SECTION OF TOOTH (WRVU 1.09) performed by Keith Cotton MD at [facility] OSC PRO REMOVE INFUSN DEVICE/PUMP N/A 05/11/2014 REMOVAL OF SPINE INFUSION PUMP performed by Jamaal Samuel MD at [facility] MAIN OR PRO REMOVE SPINAL CANAL CATHETER N/A 05/11/2014 REMOVAL OF INTRATHECAL OR EPIDURAL CATHETER performed by Jamaal Samuel MD at [facility] MAIN OR PRO REPR, DURAL/CSF LEAK, NOT REQ LAMINECTOMY N/A 05/20/2014 @REPAIR DURAL\CSF LEAK,NOT REQUIRING LAMINECTOMY performed by Freddy Isbell MD at [facility] MAIN OR MEDICATIONS: Current Outpatient [...] [Transparent Dressings] Itching and Dermatitis Please use [id number] Cyclobenzaprine Other Reaction(s): Not available Penicillins SOCIAL [...] labs. Theyare requesting these [facility] go [facility] ([facility]). They are aware that [...] Mom requesting consent to order colonoscopy. Called [phone]. Awaiting call back for consent for colonoscopy. Ordered colonoscopy at this time and will await consent confirmation with mom prior to procedure. Total time spent on encounter today: Time spent reviewing records prior to this encounter: 10 minutes Time spent during encounter with patient including counselin minutes Time spent documenting encounter after office visit: 5 minutes Samantha Crystal, MSN, ENVIRONMENTAL SERVICES DIRECTOR, CINDER CRUSHER OPERATOR-C Section of Gastroenterology [place] [address] documented in this encounter Plan of Treatment Upcoming Encounters Date Type Department Care Team (Late st Contact Info) Description 06/02/2024 12:30 PM EST Office Visit [place] [address] Hollie Ambriz MD [facility] [place] [address] Scheduled Orders Name Type Priority Associated Diagnoses [...] type documented in this encounter Care Teams Die Maker Electronic Relationship Specialty Start Date End Date Lorna Bal APRN [address] [place] [address] PCP - General Family Medicine 05/27/18 documented as of this encounter
--- OUTSIDE RECORDS SUMMARY | 2024-01-12 21:14 | XMS_ITS | Encounter Summary ---
[place] [address] Care Team Providers Care Ply Bander Name Role Phone Lorna Bal APRN Primary Care Provider [phone] [phone] Reason for Referral * Consultation (Routine) - Authorized Specialty Diagnoses / Procedures Referred By Contmonica t Referred To Contact Gastroenterology Diagnoses Constipation, unspecified constipation type constipation Lorna Bal APRN [address] [place] [address] [facility] [address] [place] [phone] Referral ID Status Reason Start Date Expiration Date Visits Requested Visits Authorized [id number] Authorized Consult, Test & Treat PCP Updated and/or Approved 01/30/2023 01/30/2024 12 12 Encounter Details Date Type Department Care Team (Latest Contact Info) Description 01/30/2023 Transcribe Orders eDH Incoming Referrals [phone] Lorna Bal APRN [address] [place], [place] [id number] Constipation, unspecified constipation type Social History Tobacco [...] PM EST Office Visit [place] [address] Hollie Ambriz MD [facility] [place] [address] Scheduled Referrals Name Type Priority Associated Diagnoses Order Schedule Referral to Gastroenterology Outpatient Referral Routine Constipation, unspecified constipation type Ordered: 01/30/2023 documented as of this encounter Visit Diagnoses Diagnosis Constipation, unspecified constipation type documented in this encounter Care Teams Ply Bander Relationship Specialty Start Date End Date Lorna Bal APRN [address] [place] [address] PCP - General Family Medicine 05/27/18 documented as of this encounter
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
--- OUTSIDE RECORDS SUMMARY | 2024-01-12 21:14 | XMS_ITS | Encounter Summary ---
Author Organization [facility] [place] [address] Care Team Providers Care Music Librarian Name Role Phone Lorna Bal APRN Primary Care Provider [phone] Encounter Details Date Type Department Care Team (Latest Contact Info) Description 03/27/2023 2:54 PM EST - 03/27/2023 11:59 PM EST Hospital En[place] [address] [place] [address] Spinal abscess Discharge Disposition: Home Social History [...] Office [place] [phone] Hollie Ambriz MD [facility] DR [place] [address] documented as of this encounter Procedures Procedure [...] who have questions, please contact the health palliative care coordinator that requested your imaging first. ? Curt Dozier, Staff Physician Electronically Signed Final Report ?? 03/27/2023 03:36 pm Narrative 03/27/2023 3:37 PM EST Abdominal ? (Signed Final 03/27/2023 03:36 pm) PATIENT INFO: ID #: ? [id number] ?: ??[birth year] (27 yrs)(F) Name: ? TANA SHELTON ?Visit Date: 03/27/2023 03:21 pm PERFORMED BY: Attending: ?Jacoby GONZALES MD, Curt Langston Performed By: ? Shelby Gardner RDMS Referred By: ?GABO BANDA Location: ? [place] [facility] Protocol - Abdominal ?[id number] Limited Survey Single Organ or Quadrant - [id number] INDICATIONS: Transaminitis ------ LIVER: ------ Right Lobe [...] 03/27/2023 03:36 pm) PATIENT INFO: ID #: [id number] : [id number] (27 yrs)(F) Name: TANA SHELTON Visit Date: 03/27/2023 03:21 pm PERFORMED BY: Attending: Jacoby GONZALES MD, Arthur L. Performed By: Shelby Gardner RDMS Referred By: GABO BANDA Location: [place] [facility] Protocol - Abdominal 34981 Limited Survey Single Organ or Quadrant - [id number] INDICATIONS: Transaminitis ------ LIVER: ------ Right Lobe [...] who have questions, please contact the health palliative care coordinator that requested your imaging first. Curt Dozier, Staff Physician Electronically Signed Final Report 03/27/2023 03:36 pm Gaob Banda MD [facility] documented in this encounter Visit Diagnoses Diagnosis Spinal abscess Acute osteomyelitis, other specified site documented in this encounter Care Teams Music Librarian Relationship Specialty Start Date End Date Lorna Bal APRN [address] [place] [address] PCP - General Family Medicine 05/27/18 documented as of this encounter
--- OUTSIDE RECORDS SUMMARY | 2024-01-12 21:14 | XMS_ITS | Encounter Summary ---
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 [place] with [place] MRI was not possible sec. To hardware. CRP/ESR was trending upwards. NSG referred her to [facility] for surgery. The patient went to [...] liquefied hematoma or abscess. Neurosurgeon recommended continuing longterm suppressive antibiotics Subjective: Tana is in [place] [...] Tipton MD Infectious Diseases Fellow- [id number] Pager: [phone] 09/23/2023 11:03 AM Plan discussed with Dr. Hollie Ambriz This note was created using [employer] voice recognition software. * Hollie Ambriz MD [...] Office [place] [address] Hollie Ambriz MD [facility] [place] [address] documented as of this encounter Procedures Procedure Name Priority Date/Time Associated Diagnosis Comments CRP, ACUTE INFLAMMATION Routine 09/24/2023 11:03 AM EDT Spinal abscess COMPREHENSIVE METABOLIC PANEL Routine 09/24/2023 11:03 AM EDT Spinal abscess documented in this encounter Results * (ABNORMAL) Comprehensive metabolic panel (non-fasting) (09/24/2023 11:03 AM EDT) Glucose 98 65 - 199 mg/dL [facility] Comment:Diabetes: >=200 mg/d L plus symptoms Blood Urea Nitrogen 16 8 - 18 mg/dL [facility] Creatinine 0.27(L) 0.70 - 1.20 mg/dL [facility] Sodium 138 135 - 145 mmol/L [facility] Potassium 3.7 3.5 - 5.0 mmol/L [facility] Comment: Please note: ??Patients with WBC >100,000 may have falsely elevated Potassium levels. ??For accurate Potassium quantification in these patients send serum separator tube (gold top) for subsequent determinations. ??Contact the Clinical Chemistry Laboratory if there are any questions. Chloride 100 98 - 107 mmol/L [facility] Carbon Dioxide 23 22 - 31 mmol/L [facility] Anion Gap 15 5 - 15 mmol/L [facility] Calcium 10.3 8.5 - 10.5 mg/dL [facility] Protein, Total 8.4(H) 6.1 - 8.0 g/dL [facility] Albumin 4.6 3.2 - 5.2 g/dL [facility] Aspartate Aminotransferase 23 0 - 30 unit/L [facility] Alanine Aminotransferase 49(H) 0 - 30 unit/L [facility] Alkaline Phosphatase 302(H) 35 - 105 unit/L [facility] Bilirubin, Total 0.3 0.2 - 1.3 mg/dL [facility] [...] Tipton MD CHEMISTRY ORDERABLES Performing Organization Address City/[facility]/ZIP Co de Phone Number [facility] [place] [address] * (ABNORMAL) CRP, acute inflammation (09/24/2023 11:03 AM EDT) C-Reactive Protein 42.3(H) <=4.9 mg/L [facility] Blood 09/24/2023 11:0 3 AM EDT 09/24/2023 11:10 AM EDT Narrative Resulting Agency Comment Spec In Lab Ronn Tipton MD CHEMISTRY ORDERABLES [facility] [place] [address] documented in this encounter Visit Diagnoses Diagnosis Spinal abscess Acute osteomyelitis, other specified site [facility] 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 Encounter for long-term (current) use of antibiotics documented in this encounter Care Teams Order Fulfillment Specialist Relationship Specialty Start Date End Date Lorna Bal APRN [address] [place] [address] PCP - General Family Medicine 05/27/18 documented as of this encounter
--- OUTSIDE RECORDS SUMMARY | 2024-01-12 21:14 | XMS_ITS | Encounter Summary ---
[place] [address] Care Team Providers Care Animal Handler Name Role Phone Lorna Bal APRN Primary Care Provider [phone] [phone] Reason for Referral * Diagnostic Test (Routine) - Closed Specialty Diagnoses / Procedures Referred By Contac t Referred To Contact Radiology Diagnoses Spinal abscess Procedures IR All Drainage Procedures IR All Biopsy Procedures Jamar Dsailva MD [facility] [place] [address] [place] [address] Referral ID Status Reason Start Date Expiration Date V isits Requested Visits Authorized [id number] Closed Specialty Service Requested 09/26/2022 03/28/2024 1 1 Reason for Visit * Diagnostic Test (Routine) - Closed Specialty Diagnoses / Procedures Referred By Contac t Referred To Contact Radiology Diagnoses Spinal abscess Procedures IR All Drainage Procedures IR All Biopsy Procedures Jamar Dasilva MD [facility] [place] [address] [place] [address] Referral ID Status Reason Start Date Expiration Date V isits Requested Visits Authorized [id number] Closed Specialty Service Requested 09/26/2022 03/28/2024 1 1 Encounter Details Date Type Department Care Team (Latest Contact Info) Description 09/26/2022 12:13 PM EDT - 09/26/2022 11:59 PM EDT Hospital [place] [address] Jamar Dasilva MD [facility] [place] [address] Spinal abscess Discharge Disposition: Home [...] is during regular office hours, please call [phone]. If it is after regular office hours, or on weekends or holidays, please call [phone] and ask to speak to the Complaint Analyst traffic operations manager for Interventional Radiology. You have received [...] of : 1995 AGE: 27 y.o. Address: [address] [place] [address] Phone: [phone] (home) Mobile: Telephone Information: Referring Provider: Jamar Dasilva REASON FOR VISIT: Paralumbar fluid aspiration Order Questions Answers Where will study be performed? [facility] Radiology [120] Is the patient [...] [Transparent Dressings] Itching and Dermatitis Please use [id number] ??? Penicillins Pertinent PMH: Patient Active Problem [...] Questions Answers Where will study be performed? [facility] Radiology [120] Is the patient [...] [facility] INTERVENTIONL RAD ??? IR ALL DRAINAGE PROCEDURES 07/04/2022 IR All Drainage Procedures 07/04/2022 Mich Martino MD [facility] INTERVENTIONL RAD ??? IR ALL DRAINAGE PROCEDURES 07/24/2022 IR All Drainage Procedures 07/24/2022 Anurag Kumar MD [facility] INTERVENTIONL RAD ??? IR DRAIN CHECK/CHANGE/REMOVE 07/01/2022 IR Drain Check/Change/Remove 07/01/2022 Jamaal Jenkins, DO [facility] INTERVENTIONL RAD ??? IR DRAIN CHECK/CHANGE/REMOVE 08/11/2022 IR Drain Check/Change/Remove 08/11/2022 Piter Self MD [facility] INTERVENTIONL RAD ??? IR DRAIN CHECK/CHANGE/REMOVE 08/25/2022 IR Drain Check/Change/Remove 08/25/2022 Jamaal Jenkins, DO [facility] INTERVENTIONL RAD ??? IR DRAIN CHECK/CHANGE/REMOVE 09/10/2022 IR Drain Check/Change/Remove 09/10/2022 Mich Martino MD [facility] INTERVENTIONL RAD ??? PRO APPLY OF HIP CASTS, TWO LEGS 08/15/2010 CAST APPLICATION, HIP SPICA, BOTH LEGS performed by BARRERA OLIVER at [facility] OR ? ? PRO I&D, POST SPINE, LUMB/SACR/LUMBOSAC N/A 05/20/2014 @I & D, OPEN, DEEP ABSCESS, LUMBAR, SACRAL, LUMBOSACRAL performed by Freddy Isbell MD at [facility] OR ? [...] OLIVER at [facility] OR ??? PRO RECONSTRUC HIP SOCKET, RESEC FEM HEAD 08/15/2010 ??ACETABULOPLASTY (GIRDLESTONE), RESECTION FEMORAL HEAD, BILATERAL performed by BARRERA OLIVER [facility] OR ??? PRO REMOVAL DEEP IMPLANT 08/15/2010 REMOVAL IMPLANT, DEEP, BRUNO performed by BARRERA OLIVER at [facility] OR ??? PRO REMOVAL ERUPTED TOOTH WITH ELEVATION OF MUCOPERIOSTEAL FLAP N/A 06/14/2018 SURGICAL EXTRACTIONS REQUIRING ELEVATION OF MUCOPERIOSTEAL FLAP AND REMOVAL OF BONE OR SECTION OF TOOTH (WRVU 1.09) performed by Keith Cotton MD at [facility] OSC ??? PRO REMOVE INFUSN DEVICE/PUMP N/A 05/11/2014 REMOVAL OF SPINE INFUSION PUMP performed by Jamaal Samuel MD at [facility] OR ??? PRO REMOVE SPINAL CANAL CATHETER N/A 05/11/2014 REMOVAL OF INTRATHECAL OR EPIDURAL CATHETER performed by Jamaal Samuel MD at [facility] OR ??? PRO REPR, DURAL/CSF LEAK, NOT REQ LAMINECTOMY N/A 05/20/2014 @REPAIR DURAL\CSF LEAK,NOT REQUIRING LAMINECTOMY performed by Freddy Isbell MD at [facility] OR Social History and Habits: [...] PM EST Office [place] [address] Hollie Ambriz MD [facility] [place] [address] documented as of this encounter Procedures Procedure [...] Jenkins, was present throughout the procedure. Jamar Dasliva MD [facility] IR ORDERABLES * Anaerobic Culture (09/26/2022 12:49 PM EDT) Anaerobic Culture No anaerobic organisms isolated [facility] Abscess STRUCTURE OF BACK OF TRUNK / Unknown 09/26/2022 12:49 PM EDT 09/26/2022 2:05 PM EDT Narrative Resulting Agency Comment Spec In Lab Jamar Dasilva MD MICROBIOLOGY - GE NERAL ORDERABLES Performing Organization Address City/[facility] [place] [address] * Abscess/Wound Aspirate Culture (09/26/2022 12:49 PM EDT) Abscess/Wound Aspirate Culture No growth [facility] Gram Stain Few Neutrophils seen No microorganisms seen. [facility] Abscess STRUCTURE OF BACK OF TRUNK / Unknown 09/26/2022 12:49 PM EDT 09/26/2022 2:05 PM EDT Narrative Resulting Agency Comment Spec In Lab Jamar Dasilva MD MICROBIOLOGY - GE NERAL ORDERABLES Performing Organization Address [facility] [place] [address] * Calcofluor White Stain (09/26/2022 12:49 PM EDT) Calcofluor Stain Calcofluor White Preparation: Negative [facility] Abscess 09/26/2022 12:4 9 PM EDT 09/26/2022 2:05 PM EDT Narrative Resulting Agency Comment Spec In Lab Jamar Dasilva MD MICROBIOLOGY - GE NERAL ORDERABLES Performing Organization Address City/[facility] Co de Phone Number [facility] [place] [address] * Fungus culture (09/26/2022 12:49 PM EDT) Fungus Culture No Fungus isolated [facility] Abscess 09/26/2022 12:4 9 PM EDT 09/26/2022 2:05 PM EDT Narrative Resulting Agency Comment Spec In Lab Jamar Dasilva MD MICROBIOLOGY - GE NERAL ORDERABLES Performing Organization Address City/[facility]/ZIP Co de Phone Number [facility] [place] [address] * AFB culture Back (09/26/2022 12:49 PM EDT) Acid Fast Bacilli Culture No Acid Fast Bacilli isolated [facility] Acid Fast Stain No Acid Fast Bacilli seen [facility] Back 09/26/2022 12:4 9 PM EDT 09/26/2022 2:05 PM EDT Narrative Resulting Agency Comment Spec In Lab Jamar Dasilva MD MICROBIOLOGY - [facility] ORDERABLES [facility] [place] [address] documented in this encounter Visit Diagnoses Diagnosis [...] mLs documented in this encounter Care Teams Animal Handler Relationship Specialty Start Date End Date Lorna Bal APRN [address] [place] [address] PCP - General Family Medicine 05/27/18 documented as of this encounter
--- OUTSIDE RECORDS SUMMARY | 2024-01-12 21:14 | XMS_ITS | Encounter Summary ---
Author Organization [facility] Address [facility] [place] [address] Care Team Providers Care Grease Renderer Name Role Phone Lorna Bal APRN Primary Care Provider [phone] Reason for Visit * Reason Comments Follow-up Encounter Details Date Type Department Care Team (Late st Contact Info) Description 03/26/2023 10:00 AM EST Office [place] [address] George Tipton MD [facility] [place] [address] 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 Dx) Social History Tobacco [...] remained on bactrim. Followed up with in [place]. MRI was not possible sec. To hardware. [...] Tipton MD Infectious Diseases Fellow- PGY5 Pager: [phone] 03/25/2023 4:00 PM Plan discussed with Dr. Gabo Trevino This note was created using [employer]) voice recognition software. I have seen the [...] from initiation. Gabo Trevino MD [facility] Infectious Disease * Olinda Barahona [...] from initiation. Gabo Trevino MD [facility] Infectious Disease documented in this encounter Plan of Treatment Upcoming Encounters Date Type Department Care Team (Late st Contact Info) Description 06/02/2024 12:30 PM EST Office [place] [address] Hollie Ambriz MD [facility] [place] [address] Scheduled Orders Name Type Priority Associated Diagnoses [...] PM EST) C-Reactive Protein 47.2(H) <=4.9 mg/L [facility] Blood 04/16/2023 4:20 PM EST 04/16/2023 4:28 PM EST Narrative Resulting Agency Comment Spec In Lab Gabo Trevino MD CHEMISTRY ORDERABLE S [facility] [place] [address] * (ABNORMAL) Comprehensive metabolic panel (non-fasting) (04/16/2023 4:20 PM EST) Glucose 79 65 - 199 mg/dL [facility] Comment:Diabetes: >=200 mg/d L plus symptoms Blood Urea Nitrogen 10 8 - 18 mg/dL [facility] Creatinine 0.49(L) 0.70 - 1.20 mg/dL [facility] Sodium 137 135 - 145 mmol/L [facility] Potassium 3.8 3.5 - 5.0 mmol/L [facility] Comment: Please note: ??Patients with WBC >100,000 may have falsely elevated Potassium levels. ??For accurate Potassium quantification in these patients send serum separator tube (gold top) for subsequent determinations. ??Contact the Clinical Chemistry Laboratory if there are any questions. Chloride 99 98 - 107 mmol/L [facility] Carbon Dioxide 27 22 - 31 mmol/L [facility] Anion Gap 11 5 - 15 mmol/L [facility] Calcium 9.4 8.5 - 10.5 mg/dL [facility] Protein, Total 7.9 6.1 - 8.0 g/dL [facility] Albumin 4.2 3.2 - 5.2 g/dL [facility] Aspartate Aminotransferase 15 0 - 30 unit/L [facility] Alanine Aminotransferase 40(H) 0 - 30 unit/L [facility] Alkaline Phosphatase 320(H) 35 - 105 unit/L [facility] Bilirubin, Total <0.2(L) 0.2 - 1.3 mg/dL [facility] Est Glomerular Filtration Rate 131 >=60 mL/min/1. 73 m?? [facility] Comment: This patient's estimated GFR [...] Lab Gabo Trevino MD [place] [address] * US Abdomen Limited Hepatology Protocol (03/27/2023 [...] who have questions, please contact the health director of home care hospice that requested your imaging first. ? Curt Dozier, Staff Physician Electronically Signed Final Report ?? 03/27/2023 03:36 pm Narrative 03/27/2023 3:37 PM EST Abdominal ? (Signed Final 03/27/2023 03:36 pm) PATIENT INFO: ID #: ? [id number] ?: ??[birth year] (27 yrs)(F) Name: ? TANA SHELTON ?Visit Date: 03/27/2023 03:21 pm PERFORMED BY: Attending: ?Jacoby GONZALES MD, Curt Langston Performed By: ? Shelby Gardner RDMS Referred By: ?GABO TREVINO Location: ? Micro SERVICE(S) PROVIDED: [facility] - Hepatology Protocol - Abdominal ?93440 Limited Survey Single Organ or Quadrant - [id number] INDICATIONS: Transaminitis ------ LIVER: ------ Right Lobe [...] 03/27/2023 03:36 pm) PATIENT INFO: ID #: [id number] : [birth year] (27 yrs)(F) Name: TANA SHELTON Visit Date: 03/27/2023 03:21 pm PERFORMED BY: Attending: Jacoby GONZALES MD, Arthur L. Performed By: Shelby Gardner RDMS Referred By: GABO TREVINO Location: Micro SERVICE(S) PROVIDED: [facility] - Hepatology Protocol - Abdominal 80265 Limited Survey Single Organ or Quadrant - [id number] INDICATIONS: Transaminitis ------ LIVER: ------ Right Lobe [...] who have questions, please contact the health director of home care hospice that requested your imaging first. Curt Dozier, Staff Physician Electronically Signed Final Report 03/27/2023 03:36 pm Gabo Trevino MD IMG US GEN ORDERABL ES * Scan, Peripheral Blood (03/26/2023 11:06 AM EST) Pathologist [facility] Plat estimate Normal [facility] RBC Morphology Abnormal [facility] Hypochromia Slight [facility] Stomatocytes 1-5 /HPF [facility] Stippled RBC Present >1/HPF [facility] Blood 03/26/2023 11:0 6 AM EST 03/26/2023 11:21 AM EST Narrative Resulting Agency Comment Spec In Lab George Tipton MD HEMATOLOGY ORDERABLE S [facility] [place] [address] * Differential, Automated (03/26/2023 11:06 AM EST) Neutrophil % 62.0 % [facility] Neutrophil Absolute 3.69 1.70 - 6.10 x10(3)/[facility] Lymph % 27.7 % [facility] Lymphocytes Abs 1.6 0.9 - 3.2 x10(3)/[facility] Monocyte % 7.7 % [facility] Monocyte Abs 0.5 0.3 - 0.9 x10(3)/[facility] Eos % 1.8 % [facility] Eosinophils Abs 0.1 0.0 - 0.4 x10(3)/[facility] Basophil % 0.5 % [facility] Baso Absolute 0.0 0.0 - 0.1 x10(3)/[facility] Immature Gran % 0.30 % [facility] Comment: Immature granulocytes(IG's)percentage and absolute count will include metamyelocytes, myelocytes, and promyelocytes. Blood smears from CBCs yielding IG's will be scanned manually for concordance. If this scan disagrees with the automated IG or if promyelocytes are noted, a manual differential will be performed. Immature Gran Absolute 0.02 0.00 - 0.04 x10(3)/[facility] Blood 03/26/2023 11:0 6 AM EST 03/26/2023 11:21 AM EST Narrative Resulting Agency Comment Spec In Lab George Tipton MD HEMATOLOGY ORDERABLE S Performing Organization Address City/State/[facility] Co de Phone Number [facility] [place] [address] * (ABNORMAL) Hemogram (03/26/2023 11:06 AM EST) White Blood Cell 6.0 4.0 - 9.5 x10(3)/mc L [facility] Red Blood Cell 3.07(L) 4.00 - 5.21 x10(6)/mc L [facility] Hemoglobin 8.9(L) 11.7 - 15.5 g/dL [facility] Hematocrit 27.5(L) 35.7 - 45.8 % [facility] Mean Cell Volume 89.6 82.6 - 94.4 fL [facility] Mean Cell Hemoglobin 29.0 27.1 - 32.0 pg [facility] Mean Cell Hemoglobin Concentration 32.4 31.7 - 35.0 g/dL [facility] Platelet 355 145 - 357 x10(3)/mc L [facility] RDW Standard Deviation 49.0(H) 37.0 - 46.0 fL [facility] RDW coefficient of variation 15.0(H) 11.5 - 14.1 % [facility] Mean Platelet Volume 9.1 7.6 - 12.9 fL [facility] NRBC% auto 0.0 % [facility] NRBC Absolute 0.000 0.000 - 0.000 x10(3)/mc L [facility] Blood 03/26/2023 11:0 6 AM EST 03/26/2023 11:21 AM EST Narrative Resulting Agency Comment Spec In Lab George Tipton MD HEMATOLOGY ORDERABLE S Performing Organization Address City/State/[facility] Co de Phone Number [facility] [place] [address] * (ABNORMAL) Comprehensive metabolic panel (non-fasting) (03/26/2023 11:06 AM EST) Glucose 81 65 - 199 mg/dL [facility] Comment:Diabetes: >=200 mg/d L plus symptoms Blood Urea Nitrogen 19(H) 8 - 18 mg/dL [facility] Creatinine 0.27(L) 0.70 - 1.20 mg/dL [facility] Sodium 140 135 - 145 mmol/L [facility] Potassium 4.3 3.5 - 5.0 mmol/L [facility] Comment: Please note: ??Patients with WBC >100,000 may have falsely elevated Potassium levels. ??For accurate Potassium quantification in these patients send serum separator tube (gold top) for subsequent determinations. ??Contact the Clinical Chemistry Laboratory if there are any questions. Chloride 104 98 - 107 mmol/L [facility] Carbon Dioxide 23 22 - 31 mmol/L [facility] Anion Gap 13 5 - 15 mmol/L [facility] Calcium 9.8 8.5 - 10.5 mg/dL [facility] Protein, Total 7.7 6.1 - 8.0 g/dL [facility] Albumin 4.3 3.2 - 5.2 g/dL [facility] Aspartate Aminotransferase 45(H) 0 - 30 unit/L [facility] Alanine Aminotransferase 101(H) 0 - 30 unit/L [facility] Alkaline Phosphatase 378(H) 35 - 105 unit/L [facility] Bilirubin, Total <0.2(L) 0.2 - 1.3 mg/dL [facility] Est Glomerular Filtration Rate 151 >=60 mL/min/1. 73 m?? [facility] Comment: This patient's estimated GFR [...] CHEMISTRY ORDERABLE S Performing Organization Address City/[facility]/ZIP Co de Phone Number [facility] [place] [address] * (ABNORMAL) Sedimentation rate (03/26/2023 11:06 AM EST) Sedimentation Rate Automated 69(H) 2 - 37 mm/hr [facility] Comment: Effective April 06, 2019 new capillary photometric technology has resulted in a change in reference ranges. It is recommended that each ESR result be reviewed with its own age appropriate reference range. Blood 03/26/2023 11:0 6 AM EST 03/26/2023 11:21 AM EST Narrative Resulting Agency Comment Spec In Lab Gabo Trevino MD HEMATOLOGY ORDERABL ES Performing Organization Address City/[facility]/ZIP Co de Phone Number [facility] [place] [address] * (ABNORMAL) CRP, acute inflammation (03/26/2023 11:06 AM EST) C-Reactive Protein 86.3(H) <=4.9 mg/L [facility] Blood 03/26/2023 11:0 6 AM EST 03/26/2023 11:21 AM EST Narrative Resulting Agency Comment Spec In Lab Gabo Trevino MD CHEMISTRY ORDERABLE S Performing Organization Address City/State/[facility] Co de Phone Number [facility] [place] [address] documented in this encounter Visit Diagnoses Diagnosis Spinal abscess- Primary Acute osteomyelitis, other specified site Spinal abscess Acute osteomyelitis, other specified site documented in this encounter Care Teams Grease Renderer Relationship Specialty Start Date End Date Lorna Bal APRN [address] [place] [address] PCP - General Family Medicine 05/27/18 documented as of this encounter
--- OUTSIDE RECORDS SUMMARY | 2024-01-12 21:14 | XMS_ITS | Encounter Summary ---
Author Organization [facility] Address [facility] [place] [address] Care Team Providers Care Pumper Head Name Role Phone Lorna Bal APRN Primary Care Provider +1 -[phone] Reason for Visit * Reason Comments Medication Refill Encounter Details Date Type Department Care Team (Late st Contact Info) Description 09/10/2023 [place] [phone] Hollie Ambriz MD [facility] [place] [address] Social History Tobacco Use Types Packs/Day Years [...] PM EST Office [place] [address] Hollie Ambriz MD [facility] DR [place] [address] documented as of this encounter Visit Diagnoses Not on filedocumented in this encounter Care Teams Pumper Head Relationship Specialty Start Date End Date Lorna Bal APRN [address] [place] [address] PCP - General Family Medicine 05/27/18 documented as of this encounter
--- OUTSIDE RECORDS SUMMARY | 2024-01-12 21:14 | XMS_ITS | Encounter Summary ---
Author Organization [facility] [place] [address] Care Team Providers Care Crossword Puzzle Maker Name Role Phone Lorna Bal APRN Primary Care Provider +1 -[phone] Encounter Details Date Type Department Care Team (Late st Contact Info) Description 06/16/2023 Telephone [place] [phone] Martha Kennedy Social History Tobacco Use Types [...] PM EST Office [place] [address] Hollie Ambriz MD [facility] INFECTIOUS [place] [address] documented as of this encounter Visit Diagnoses Not on filedocumented in this encounter Care Teams Crossword Puzzle Maker Relationship Specialty Start Date End Date Lorna Bal APRN [address] [place] [address] PCP - General Family Medicine 05/27/18 documented as of this encounter
--- OUTSIDE RECORDS SUMMARY | 2024-01-12 21:14 | XMS_ITS | Encounter Summary ---
Author Organization [facility] Address [facility] [place] [address] Care Team Providers Care Gas Combustion Engineer Name Role Phone Lorna Bal APRN Primary Care Provider +1 -[phone] Encounter Details Date Type Department Care Team (Latest Contact Info) Description 08/05/2023 9:03 AM EDT - 08/05/2023 11:39 AM EDT Hospital Encounter [place] [address] Jamar Gastelum MD [facility] [place] [place] [address] Discharge Disposition: Home Social History Tobacco Use [...] occurs, please contact your Doctor. Please call [phone] before 8pm Mon-Fri with problems, questions or concerns. If you call after 8pm or on weekends, call the Hospital at [phone] and ask to speak to the Housekeeping Lead fund controller and the asphalt tamping machine operator will contact that person for you. When should you call for help? Call [phone] anytime you think you may need emergency [...] any problems. Where can you learn more? [facility] View your After Visit Summary and more online at [email or web address] If you would like to provide feedback about your hospital experience, please call the Office of Patient and Family Relations at . If you have received this After Visit Summary in error, please immediately return it in person to the department, or notify the [facility] Privacy Office by calling toll free at between the hours of 8AM and 5PM to arrange for our retrieval of the documents at no cost to you. Content Version: 12.2 ?? 0420-1767 [employer]. Care instructions adapted under license by [facility]. If you have questions about a medical condition or this instruction, always ask your healthcare professional. [employer] disclaims any warranty or liability for your [...] Gastelum MD - 08/05/2023 10:35 AM EDT [facility] Operative Note Patient Name: Tana Cavazos : [id number] MR#: [id number] Case Date: 08/05/2023 Surgeon: Surgeon(s) and Role: [...] PM EST Office Visit [place] [address] Hollie Ambriz MD [facility] [place] [address] documented as of this encounter Procedures Procedure Name Priority Date/Time Associated Diagnosis Comments SPECIMEN TO PATHOLOGY Routine 08/05/2023 11:01 AM EDT SURGICAL PATHOLOGY REPORT Routine 08/05/2023 11:00 AM EDT Colonoscopy, Biopsy ([id number]) 08/05/2023 10:27 AM EDT Constipation, unspecified constipation [...] PATHOLOGY/CYTOLO GY ORDERABLES [facility] [place] [address] * Surgical Pathology Report (08/05/2023 11:00 AM EDT) Final Diagnosis [id number] ? Location: 4T; EA11; A The signing pathologist has (i) examined the relevant preparation(s) for the specimen(s) and (ii) rendered or confirmed the diagnosis(es). . ?Surgical Pathology DIAGNOSIS A - Rectum r/o microscopic colitis, biopsy (Multiple): - ??Colonic mucosa within normal limits. CR-PX Electronically signed by: ?Jazmyne GIRALDO PhD, Courtney Verified: ??08/17/2023 16:08 ??Pathologist Performed at: ??-[facility] Dept. of Pathology, [place] [address] Client Account Specialist: Frank Turpin MD, FCAP, ??CLIA Certificate: [id number] SPECIMEN(S) SUBMITTED A - rectum r/o microscopic [...] PATHOLOGY/CYTOLO GY ORDERABLES [facility] [place] [address] * COLONOSCOPY (08/05/2023 9:59 AM EDT) COLONOSCOPY [facility] Endoscopy ___ Procedure Date: 08/05/2023 9:59 AM ? Patient Name: Tana Cavazos ? Date of : 1995 ? Age: 28 ? Order #: [id number] ? Instrument Name: [id number] ? ___ Procedure: ? Colonoscopy Indications: ? [...] Active and Recently Administered Medications Care Teams Gas Combustion Engineer Relationship Specialty Start Date End Date Lorna Bal APRN [address] [place] [address] PCP - General Family Medicine 05/27/18 documented as of this encounter
--- OUTSIDE RECORDS SUMMARY | 2024-01-12 21:14 | XMS_ITS | Encounter Summary ---
[place] [address] Care Team Providers Care Hadoop Infrastructure Architect Name Role Phone Lorna Bal APRN Primary Care Provider +1 -[phone] Reason for Referral * Consultation (Routine) - Authorized Specialty Diagnoses / Procedures Referred By Karlo duarte Referred To Contact Orthopaedics Diagnoses Contracture of joint of hand, 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 Lorna Bal APRN [address] [place] [address] [facility] Orth[facility] [address] [place] [phone] Referral ID Status Reason Start Date Expiration Date Visits Requested Visits Authorized [id number] Authorized Consult, Test & Treat PCP Updated and/or Approved 08/03/2023 08/02/2024 6 6 Encounter Details Date Type Department Care Team (Latest Contact Info) Description 08/03/2023 Transcribe Orders eDH Incoming Referrals [phone] Lorna Bal APRN [address] [place] [address] Contracture of joint of hand, unspecified laterality [...] PM EST Office [place] [address] Hollie Ambriz MD [facility] [place] [address] Scheduled Referrals Name Type Priority Associated Diagnoses Orde r Schedule Referral to Orthopaedics Outpatient Referral Routine Contracture of joint of hand, unspecified laterality Ordered: 08/03/2023 documented as of this encounter Visit Diagnoses Diagnosis Contracture of joint of hand, unspecified laterality documented in this encounter Care Teams Hadoop Infrastructure Architect Relationship Specialty Start Date End Date Lorna Bal APRN [address] [place] [address] PCP - General Family Medicine 05/27/18 documented as of this encounter
--- OUTSIDE RECORDS SUMMARY | 2024-01-12 21:14 | XMS_ITS | Encounter Summary ---
Author Organization [facility] Address [facility] [place] [address] Care Team Providers Care Well Point Pumping Supervisor Name Role Phone Lorna Bal APRN Primary Care Provider +1 -[phone] Reason for Visit * Consultation (Urgent) - Closed Specialty Diagnoses / Procedures Referred By Contmonica t Referred To Contact Infectious Diseases Diagnoses Osteomyelitis, unspecified site, unspecified type Spinal cord abscess Lorna Bal APRN [address] [place] [address] [facility] [place] [address] [place] [phone] Referral ID Status Reason Start Date Expiration Date V isits Requested Visits Authorized [id number] Closed Consult, Test & Treat PCP Updated and/or Approved 12/23/2022 12/23/2023 6 6 Encounter Details Date Type Department Care Team (Late st Contact Info) Description 01/29/2023 9:30 AM EDT Office [place] [address] George Tipton MD [facility] [place] [address] 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 Followed up with in [place]. MRI was not possible sec. To hardware. CRP/ESR was trending upwards. NSG referred her to [facility] for surgery and patient is scheduled for a procedure on 02/11/23. Patient presents to ID clinic to reestablish care in anticipation that she will need antibiotics after her surgery since she will have new hardware in setting of chronic infection. Patient is accompanied by 2 caregivers. According to the caregivers patient lives in a house in [place] with another roommate. They have been taking [...] Mich Martino MD [facility] IR ALL DRAINAGE PROCEDURES 07/04/2022 IR All Drainage Procedures 07/04/2022 Mich Martino MD [facility] IR ALL DRAINAGE PROCEDURES 07/24/2022 IR All Drainage Procedures 07/24/2022 Anurag Kumar MD [facility] IR ALL DRAINAGE PROCEDURES 09/26/2022 IR All Drainage Procedures 09/26/2022 Jamaal Jenkins, DO [facility] IR DRAIN CHECK/CHANGE/REMOVE 07/01/2022 IR Drain Check/Change/Remove 07/01/2022 Jamaal Jenkins, DO [facility] IR DRAIN CHECK/CHANGE/REMOVE 08/11/2022 IR Drain Check/Change/Remove 08/11/2022 Piter Self MD [facility] IR DRAIN CHECK/CHANGE/REMOVE 08/25/2022 IR Drain Check/Change/Remove 08/25/2022 Jamaal Jenkins, DO [facility] IR DRAIN CHECK/CHANGE/REMOVE 09/10/2022 IR Drain Check/Change/Remove 09/10/2022 Mich Martino MD [facility] PRO APPLY OF HIP CASTS, TWO LEGS 08/15/2010 CAST APPLICATION, HIP SPICA, BOTH LEGS performed by BARRERA OLIVER at [facility] MA[facility] OR PRO I&D, POST SPINE, LUMB/SACR/LUMBOSAC N/A 05/20/2014 @I & D, OPEN, DEEP ABSCESS, LUMBAR, SACRAL, LUMBOSACRAL performed by Freddy Isbell MD at [facility] MA[facility] OR PRO I&D, POST SPINE, LUMB/SACR/LUMBOSAC N/A 05/26/2014 @I & D, OPEN, DEEP ABSCESS, LUMBAR, SACRAL, LUMBOSACRAL performed by Freddy Isbell MD at [facility] MAIN OR PRO IMPACT TOOTH REMOV COMP BONY N/A 06/14/2018 SURGICAL EXTRACTIONS, REMOVAL OF IMPACTED TOOTH, COMPLETELY BONY (WRVU 1.93) performed by Keith Cotton MD at [facility] OSC PRO OSTEOTOMY FEMUR SHAFT/SUPRACONDY 08/15/2010 ??OSTEOTOMY, FEMUR SHAFT OR SUPRACONDYLAR W/O FIXATION performed by BARRERA OLIVER at [facility] MAIN OR PRO RECONSTRUC HIP SOCKET, RESEC FEM HEAD 08/15/2010 ??ACETABULOPLASTY (GIRDLESTONE), RESECTION FEMORAL HEAD, BILATERAL performed by BARRERA OLIVER [facility] MAIN OR PRO REMOVAL DEEP IMPLANT 08/15/2010 REMOVAL IMPLANT, DEEP, BRUNO performed by BARRERA OLIVER at [facility] MAIN OR PRO REMOVAL ERUPTED TOOTH WITH ELEVATION OF MUCOPERIOSTEAL FLAP N/A 06/14/2018 SURGICAL EXTRACTIONS REQUIRING ELEVATION OF MUCOPERIOSTEAL FLAP AND REMOVAL OF BONE OR SECTION OF TOOTH (WRVU 1.09) performed by Keith Cotton MD at [facility] PRO REMOVE INFUSN DEVICE/PUMP N/A 05/11/2014 REMOVAL OF SPINE INFUSION PUMP performed by Jamaal Samuel MD at [facility] MAIN OR PRO REMOVE SPINAL CANAL CATHETER N/A 05/11/2014 REMOVAL OF INTRATHECAL OR EPIDURAL CATHETER performed by Jamaal Samuel MD at [facility] MAIN OR PRO REPR, DURAL/CSF LEAK, NOT REQ LAMINECTOMY N/A 05/20/2014 @REPAIR DURAL\CSF LEAK,NOT REQUIRING LAMINECTOMY performed by Freddy Isbell MD at [facility] MAIN OR Allergies: Allergies Allergen Reactions Fluoxetine Other (See Comments) HIVES, HEART RACES Tegaderm [Transparent Dressings] Itching and Dermatitis Please use [id number] Penicillins Immunization History: Immunization History Administered Date(s) Administered Influenza Vaccine (Novel) [id number], Injectable 02/25/2009 Influenza Vaccine w/Preservative, Split 04/25/2011 Influenza Vaccine, Whole 03/27/2009 Family History: Family History Problem Relation Age of Onset Cancer Maternal Grandmother Heart Disease Maternal Grandfather Social History: Hx of CP, lives in a alf with care givers. ROS: 14 point ROS [...] Patient is being evaluated by neurosurgery in [facility] and is scheduled to undergo revision lumbar interbody fusion. We are evaluating the patient in anticipation that she will need antibiotics postprocedure. After discussing with the caregivers we decided to hold Bactrim as it will increase the yield of intraoperative cultures. Once surgery is performed in [facility] patient will need ID follow-up inpatient and then her care can be transitioned over to our clinic since it is closer to [place]. At this time Bactrim will be held [...] Dr. Nikolay Tipton MD Infectious Diseases Fellow-PGY5 [facility] Pager: [phone] 01/28/2023 10:38 AM * Nikolay Toledo MD [...] PM EST Office [place] [address] Nikolay Toledo MD [facility] [place] [address] documented as of this encounter Visit Diagnoses Diagnosis long-term 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 Encounter for long-term (current) use of antibiotics documented in this encounter Care Teams Well Point Pumping Supervisor Relationship Specialty Start Date End Date Lorna Bal APRN [address] [place] [address] PCP - General Family Medicine 05/27/18 documented as of this encounter
--- OUTSIDE RECORDS SUMMARY | 2024-01-12 21:14 | XMS_ITS | Encounter Summary ---
Author Organization [facility] [place] [address] Care Team Providers Care Compensation Administrator Name Role Phone Lorna Bal APRN Primary Care Provider +1 -[phone] Reason for Referral * Diagnostic Test (Routine) - Closed Specialty Diagnoses / Procedures Referred By Contac t Referred To Contact Radiology Diagnoses Spinal abscess Procedures CT Lumbar Spine w Contrast George Tipton MD [facility] CRITICAL C[place] [address] [facility] [place] [address] Referral ID Status Reason Start Date Expiration Date V isits Requested Visits Authorized [id number] Closed Specialty Service Requested 04/15/2023 10/14/2024 1 1 Encounter Details Date Type Department Care Team (Late st Contact Info) Description 04/15/2023 Notes [place] [address] Geroge Tipton MD [facility] CRITICAL [place] [address] Social History Tobacco Use Types [...] PM EST Office [place] [address] Hollie Ambriz MD [facility] DR INFECTIOUS [place] [address] documented as of this encounter Results * [...] questions please contact the health skin care technician that requested your imaging first. [...] have questions please contactthe health skin care technician that requested your imaging first. Keri Trevino MD IMG CT ORDERABLES documented in this encounter Visit Diagnoses Diagnosis Spinal abscess- Primary Acute osteomyelitis, other specified site Spinal abscess Acute osteomyelitis, other specified site documented in this encounter Care Teams Compensation Administrator Relationship Specialty Start Date End Date Lorna Bal APRN [address] [place] [address] PCP - General Family Medicine 05/27/18 documented as of this encounter
--- OUTSIDE RECORDS SUMMARY | 2024-01-12 21:14 | XMS_ITS | Encounter Summary ---
Author Organization [facility] Address [facility] [place] [address] Care Team Providers Care Internet Security Specialist Name Role Phone Lorna Bal APRN Primary Care Provider +1 -[phone] Reason for Visit * Reason Onset Date Comments Medication Refill 08/11/2023 Encounter Details Date Type Department Care Team (Late st Contact Info) Description 08/11/2023 [place] [address] Hollie Ambriz MD [facility] [place] [address] Social History Tobacco Use Types Packs/Day Years [...] Office [place] [address] Hollie Ambriz MD [facility] [place] [address] documented as of this encounter Visit Diagnoses Not on filedocumented in this encounter Care Teams Internet Security Specialist Relationship Specialty Start Date End Date Lorna Bal APRN [address] [place] [address] PCP - General Family Medicine 05/27/18 documented as of this encounter
--- OUTSIDE RECORDS SUMMARY | 2024-01-12 21:14 | XMS_ITS | Encounter Summary ---
Author Organization [facility] Benjamin [place] [address] Care Team Providers Care Gas Leak Tester Name Role Phone Lorna Bal APRN Primary Care Provider +1 -[phone] Encounter Details Date Type Department Care Team (Late st Contact Info) Description 04/24/2023 Telephone Infectious Disease at [facility] [place] [address] Meme Morataya Social History Tobacco Use Types [...] Office Visit [place] [address] Hollie Ambriz MD [facility] [place] [address] documented as of this encounter Visit Diagnoses Not on filedocumented in this encounter Care Teams Gas Leak Tester Relationship Specialty Start Date End Date Lorna Bal, STUNT PERSON [address] [place] [address] PCP - General Family Medicine 05/27/18 documented as of this encounter
--- OUTSIDE RECORDS SUMMARY | 2024-01-12 21:14 | XMS_ITS | Encounter Summary ---
Author Organization [facility] [address] Care Team Providers Care Tuckpointer Cleaner Caulker Name Role Phone Lorna Bal APRN Primary Care Provider +1 -[phone] Encounter Details Date Type Department Care Team (Late st Contact Info) Description 10/27/2022 Telephone [place] [address] Halima García Social History Tobacco Use Types Packs/Day Years Used Date Smoking Tobacco: Never Smokeless Tobacco: Never Comments:NO SMOKERS IN THE H OME Alcohol Use Standard Drinks/Week Comments No 0 (1 standard drink = 0.6 oz pur e alcohol) [facility] Inpatient Questions Answer Date [...] EST Office Visit [place] [address] Hollie Ambriz MD [facility] [address] [place] [address] documented as of this encounter Visit Diagnoses Not on filedocumented in this encounter Care Teams Tuckpointer Cleaner Caulker Relationship Specialty Start Date End Date Lorna Bal APRN [address] [place] [address] PCP - General Family Medicine 05/27/18 documented as of this encounter
--- OUTSIDE RECORDS SUMMARY | 2024-01-12 21:14 | XMS_ITS | Encounter Summary ---
Author Organization [facility] [place] [address] Care Team Providers Care Director Organizational Name Role Phone Lorna Bal APRN Primary Care Provider +1 -[phone] Reason for Referral * Consultation (Routine) - Closed Specialty Diagnoses / Procedures Referred By Contac t Referred To Contact Wound Care Diagnoses Osteomyelitis, unspecified site, unspecified type Spinal cord abscess Lorna Bal APRN [address] [place] [address] [facility] [place] [address] Referral ID Status Reason Start Date Expiration Date V isits Requested Visits Authorized [id number] Closed Consult, Test & Treat PCP Updated and/or Approved 12/26/2022 12/26/2023 12 12 Encounter Details Date Type Department Care Team (Latest Contact Info) Description 12/26/2022 Transcribe Orders eDH Incoming Referrals [phone] Lorna Bal APRN [address] [place] [address] Osteomyelitis, unspecified site, unspecified type; [...] PM EST Office [place] [address] Hollie Ambriz MD [facility] [place] [address] Scheduled Referrals Name Type Priority Associated Diagnoses Orde r Schedule Referral to Plastic Surgery Outpatient Referral Routine Osteomyelitis, unspecified site, unspecified type Spinal cord abscess Ordered: 12/26/2022 documented as of this encounter Visit Diagnoses Diagnosis Osteomyelitis, unspecified site, unspecified type Spinal cord abscess Acute osteomyelitis, other specified site documented in this encounter Care Teams Director Organizational Relationship Specialty Start Date End Date Lorna Bal APRN [address] [place] [address] PCP - General Family Medicine 05/27/18 documented as of this encounter
--- OUTSIDE RECORDS SUMMARY | 2024-01-12 21:14 | XMS_ITS | Encounter Summary ---
Author Organization [facility] Address [facility] [place] [address] Care Team Providers Care Boatbuilder Apprentice Wood Name Role Phone Lorna Bal APRN Primary Care Provider +1 -[phone] Encounter Details Date Type Department Care Team (Late st Contact Info) Description 04/29/2023 Notes [place] [address] George Tipton MD [facility] [place] [address] Social History Tobacco Use Types Packs/Day Years [...] from 04/[address] Augustin(Neurosurgeon, [facility]) and talked to medical scientist. According to her the surgeon reviewed [...] PM EST Office [place] [address] Hollie Ambriz MD [facility] [place] [address] documented as of this encounter Visit Diagnoses Not on filedocumented in this encounter Care Teams Boatbuilder Apprentice Wood Relationship Specialty Start Date End Date Lorna Bal APRN [address] [place] [address] PCP - General Family Medicine 05/27/18 documented as of this encounter
--- OUTSIDE RECORDS SUMMARY | 2024-01-12 21:15 | XMS_ITS | Encounter Summary ---
Author Organization [facility] [place] [address] Care Team Providers Care Fire Fighters Dispatcher Name Role Phone Lorna Bal APRN Primary Care Provider +1 -[phone] Encounter Details Date Type Department Care Team (Late st Contact Info) Description 08/07/2022 Telephone [place] [address] Mesha Mckeon, RN Social History Tobacco Use [...] PM EST Office Visit [place] [address] Hollie Ambriz MD [facility] [place] [address] documented as of this encounter Visit Diagnoses Not on filedocumented in this encounter Additional Health Concerns Infection Onset Date Last Indicated Resolved Time Enterovirus / Rhinovirus 07/28/2022 07/28/2022 8:09 PM EDT documented as of this encounter Care Teams Fire Fighters Dispatcher Relationship Specialty Start Date End Date Lorna Bal APRN [address] [place] [address] PCP - General Family Medicine 05/27/18 documented as of this encounter
--- OUTSIDE RECORDS SUMMARY | 2024-01-12 21:15 | XMS_ITS | Encounter Summary ---
Author Organization [facility] [place] [address] Care Team Providers Care Financial Planning Analyst Name Role Phone Lorna Bal APRN Primary Care Provider +1 -[phone] Encounter Details Date Type Department Care Team (Late st Contact Info) Description 08/15/2022 Telephone [place] [phone] Neva Thorpe, RN Social History Tobacco Use [...] 08/15/2022 2:26 PM EDT Pictures received via [facility]ana's back wound. This RN [...] EST Office Visit [place] [address] Hollie Ambriz MD [facility] [place] [address] documented as of this encounter Visit Diagnoses Not on filedocumented in this encounter Care Teams Financial Planning Analyst Relationship Specialty Start Date End Date Lorna Bal APRN [address] [place] [address] PCP - General Family Medicine 05/27/18 documented as of this encounter
--- OUTSIDE RECORDS SUMMARY | 2024-01-12 21:15 | XMS_ITS | Encounter Summary ---
Author Organization [facility] [place] [address] Care Team Providers Care Brick And Blocker Aid Labor Name Role Phone Lorna Bal APRN Primary Care Provider +1 -[phone] Encounter Details Date Type Department Care Team (Late st Contact Info) Description 09/08/2022 Telephone [place] [phone] Valentina Stanton Social History Tobacco Use Types [...] PM EST Office [place] [address] Hollie Ambriz MD [facility] [place] [address] documented as of this encounter Visit Diagnoses Not on filedocumented in this encounter Care Teams Brick And Blocker Aid Labor Relationship Specialty Start Date End Date Lorna Bal, CHILD PSYCHIATRIST [address] [place] [address] PCP - General Family Medicine 05/27/18 documented as of this encounter
--- OUTSIDE RECORDS SUMMARY | 2024-01-12 21:15 | XMS_ITS | Encounter Summary ---
Author Organization [facility] [place] [address] Care Team Providers Care Plastics Worker Name Role Phone Lorna Bal APRN Primary Care Provider +1 -[phone] Reason for Referral * Diagnostic Test (Routine) - Closed Specialty Diagnoses / Procedures Referred By Contac t Referred To Contact Radiology Diagnoses Spinal abscess Procedures IR All Drainage Procedures IR All Biopsy Procedures Jamar Dasilva MD [facility] [place] [address] [place] [address] Referral ID Status Reason Start Date Expiration Date V isits Requested Visits Authorized [id number] Closed Specialty Service Requested 09/26/2022 03/28/2024 1 1 Encounter Details Date Type Department Care Team (Late st Contact Info) Description 09/26/2022 Orders [place] [address] Jamar Dasilva MD [facility] [place] [address] Spinal abscess Social History Tobacco Use Types Packs/Day Years Used Date Smoking Tobacco: Never Smokeless Tobacco: Never Comments:NO SMOKERS IN THE H OME Alcohol Use Standard Drinks/Week Comments No 0 (1 standard drink = 0.6 oz pur e alcohol) [facility] Inpatient Questions Answer Date Recorded Does Anyone [...] EST Office [place] [address] Hollie Ambriz MD [facility] [place] [address] documented as of this encounter Results * [...] present throughout the procedure. Jamar Dasilva [place] [facility] [place] * AFB culture Back (09/26/2022 12:49 PM EDT) Acid Fast Bacilli Culture No Acid Fast Bacilli isolated [facility] Acid Fast Stain No Acid Fast Bacilli seen [facility] Back 09/26/2022 12:4 9 PM EDT 09/26/2022 2:05 PM EDT Narrative Resulting Agency Comment Spec In Lab Jamar Dasilva MD [facility] ORDERABLES [facility] [place] [address] documented in this encounter Visit Diagnoses Diagnosis Spinal abscess Acute osteomyelitis, other specified site Spinal abscess Acute osteomyelitis, other specified site documented in this encounter Care Teams Plastics Worker Relationship Specialty Start Date End Date Lorna aBl APRN [address] [place] [address] PCP - General Family Medicine 05/27/18 documented as of this encounter
--- OUTSIDE RECORDS SUMMARY | 2024-01-12 21:15 | XMS_ITS | Encounter Summary ---
Author Organization [facility] [place] [address] Care Team Providers Care Renewals Manager Name Role Phone Lorna Bal APRN Primary Care Provider +1 [phone] Encounter Details Date Type Department Care Team (Late st Contact Info) Description 09/25/2022 Telephone [place] [phone] Jamar Dasilva MD [facility] [place] [address] Social History Tobacco Use Types Packs/Day Years [...] status. Tana saw her neurosurgeon today in [place]. He feels that her symptoms are an allergic reaction to the current abx and requests that the abx be changed. The neurosurgeon said that they need to go in and remove a screw and clean out the area around the meredith in Tana's back. They do not want to do this at [facility] as it will require a plastic surgeon [...] went over 68 she needed to go [facility] ED. Should she do that? No fever and WBC is normal. #4- Can Dr. Dasilva help to schedule an appt with radiology to have the drains put back in? documented in this encounter Plan of Treatment Upcoming Encounters Date Type Department Care Team (Late st Contact Info) Description 06/02/2024 12:30 PM EST Office [place] [address] Hollie Ambriz MD [facility] [place] [address] documented as of this encounter Visit Diagnoses Not on filedocumented in this encounter Care Teams Renewals Manager Relationship Specialty Start Date End Date Lorna Bal APRN [address] [place] [address] PCP - General Family Medicine 05/27/18 documented as of this encounter
--- OUTSIDE RECORDS SUMMARY | 2024-01-12 21:15 | XMS_ITS | Encounter Summary ---
[place] [address] Care Team Providers Care Conventional Underwriter Name Role Phone Lorna Bal APRN Primary Care Provider +1 [phone] Reason for Referral * Consultation (Routine) - Closed Specialty Diagnoses / Procedures Referred By Contac t Referred To Contact [facility] Diagnoses Spinal abscess Soft tissue abscess Bacteremia Sergey Keane MD [facility] [place] [address] [facility] [place] [address] Referral ID Status Reason Start Date Expiration Date V isits Requested Visits Authorized [id number] Closed Consult, Test & Treat 08/13/2022 08/13/2023 1 1 Encounter Details Date Type Department Care Team (Late st Contact Info) Description 08/13/2022 11:30 AM EDT Office [place] [address] Sergey Keane MD [facility] [place] [address] Spinal abscess; Soft tissue abscess; Bacteremia; snf 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 Social History Tobacco [...] 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 [place]for evaluation of??increasing redness and tenderness [...] drainage from the same area??she returned [place] [facility] [place] 07[place], a repeated CT of the [...] needed Sergey Doan MD Infectious Disease Fellow [facility] 08/18/2022 Chronic suppression Behaving as infection * [...] PM EST Office [place] [address] Hollie Ambriz MD [facility] [place] [address] Scheduled Referrals Name Type Priority Associated Diagnoses Order Schedule Referral to Orthopaedics Outpatient Referral Routine Spinal abscess Soft tissue abscess Bacteremia Ordered: 08/13/2022 documented as of this encounter Visit Diagnoses Diagnosis Spinal abscess Acute osteomyelitis, other specified site Soft tissue abscess Cellulitis and abscess of other specified site Bacteremia intermediate teacher 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 Encounter for long-term (current) use of antibiotics documented in this encounter Care Teams Conventional Underwriter Relationship Specialty Start Date End Date Lorna Bal APRN [address] [place] [address] PCP - General Family Medicine 05/27/18 documented as of this encounter
--- OUTSIDE RECORDS SUMMARY | 2024-01-12 21:15 | XMS_ITS | Encounter Summary ---
Author Organization [facility] [place] [address] Care Team Providers Care Machine Tracer Name Role Phone Lorna Bal APRN Primary Care Provider +1 [phone] Encounter Details Date Type Department Care Team (Late st Contact Info) Description 08/19/2022 Telephone [place] [phone] Lilli Joy APRN [facility] [place] [address] Social History Tobacco Use Types Packs/Day Years Used Date Smoking Tobacco: Never Smokeless Tobacco: Never Comments:NO SMOKERS IN THE H OME Alcohol Use Standard Drinks/Week Comments No 0 (1 standard drink = 0.6 oz pur e alcohol) [facility] Inpatient Questions Answer Date Recorded Does Anyone [...] Notes * Telephone Encounter - Lilli Joy, SYNTHETIC FILAMENT EXTRUDER - 08/19/2022 8:59 PM EDT S: Received [...] the decision was made to discharge Ms. Caavzos with 6 weeks of Levofloxacin, given concern [...] PM EST Office [place] [address] Hollie Ambriz MD [facility] [place] [address] documented as of this encounter Visit Diagnoses Not on filedocumented in this encounter Care Teams Machine Tracer Relationship Specialty Start Date End Date Lorna Bal APRN [address] [place] [address] PCP - General Family Medicine 05/27/18 documented as of this encounter
--- OUTSIDE RECORDS SUMMARY | 2024-01-12 21:15 | XMS_ITS | Encounter Summary ---
Author Organization [place] [address] Care Team Providers Care Portrait Studio Photographer Name Role Phone Lorna Bal APRN Primary Care Provider +1 -[phone] Encounter Details Date Type Department Care Team (Late st Contact Info) Description 09/24/2022 Telephone [place] [address] Valentina Stanton Social History Tobacco Use Types [...] PM EST Office [place] [address] Hollie Ambriz MD [facility] [place] [address] documented as of this encounter Visit Diagnoses Not on filedocumented in this encounter Care Teams Portrait Studio Photographer Relationship Specialty Start Date End Date Lorna Bal, STUDENT MINISTRIES DIRECTOR [address] [place] [address] PCP - General Family Medicine 05/27/18 documented as of this encounter
--- OUTSIDE RECORDS SUMMARY | 2024-01-12 21:15 | XMS_ITS | Encounter Summary ---
Author Organization [facility] [place] [address] Care Team Providers Care Optics Manufacturing Technician Name Role Phone Lorna Bal APRN Primary Care Provider +1 -[phone] Encounter Details Date Type Department Care Team (Late st Contact Info) Description 09/03/2022 Telephone [place] [address] Halima García Social History Tobacco Use Types [...] return call to Dr. Ila Hadley from [facility]. Requesting a call back to discuss pt dx, 2nd option and how she can best assist with the pt's care. Dr. Hadley [phone]. Thanks Halima documented in this encounter Plan of Treatment Upcoming Encounters Date Type Department Care Team (Late st Contact Info) Description 06/02/2024 12:30 PM EST Office [place] [address] Hollie Ambriz MD [facility] [place] [address] documented as of this encounter Visit Diagnoses Not on filedocumented in this encounter Care Teams Optics Manufacturing Technician Relationship Specialty Start Date End Date Lorna Bal APRN [address] [place] [address] PCP - General Family Medicine 05/27/18 documented as of this encounter
--- OUTSIDE RECORDS SUMMARY | 2024-01-12 21:15 | XMS_ITS | Encounter Summary ---
Author Organization [facility] [place] [address] Care Team Providers Care Lead Business Analyst Name Role Phone Lorna Bal APRN Primary Care Provider +1 -[phone] Encounter Details Date Type Department Care Team (Late st Contact Info) Description 09/03/2022 Notes [place] [phone] Mesha Mckeon, RN Social History Tobacco Use [...] RN - 09/03/2022 11:59 PM EDT This food writer received called from patient's mom about concerns about her daughter's drains. She reported that they have stopped draining and was wondering how long we were keeping it in. I instructed her to call IR for a drain check. Mom verbalized understanding. She also stated that she took her to [place] for a second opinion. That doctor in [place] was concerned about pt and wanted a call back as well. This food writer sent inbasket and routed secretaries notes from the Doctor in [place] to Shawn Woodard. Mom is very concerned about her daughters infection. Her end date is on 09/04. documented in this encounter Plan of Treatment Upcoming Encounters Date Type Department Care Team (Late st Contact Info) Description 06/02/2024 12:30 PM EST Office [place] [address] Hollie Ambriz MD [facility] [place] [address] documented as of this encounter Visit Diagnoses Not on filedocumented in this encounter Care Teams Lead Business Analyst Relationship Specialty Start Date End Date Lorna Bal APRN [address] [place] [address] PCP - General Family Medicine 05/27/18 documented as of this encounter
--- OUTSIDE RECORDS SUMMARY | 2024-01-12 21:15 | XMS_ITS | Encounter Summary ---
Author Organization [facility] [place] [address] Care Team Providers Care Knee Bolter Name Role Phone Lorna Bal APRN Primary Care Provider +1 -[phone] Encounter Details Date Type Department Care Team (Late st Contact Info) Description 09/25/2022 Telephone [place] [address] Valentina Stanton Social History Tobacco Use Types [...] PM EST Office [place] [address] Hollie Ambriz MD [facility] [place] [address] documented as of this encounter Visit Diagnoses Not on filedocumented in this encounter Care Teams Knee Bolter Relationship Specialty Start Date End Date Lorna Bal, WEIGH TANK OPERATOR [address] [place] [address] PCP - General Family Medicine 05/27/18 documented as of this encounter
--- OUTSIDE RECORDS SUMMARY | 2024-01-12 21:15 | XMS_ITS | Encounter Summary ---
Author Organization [place] [address] Care Team Providers Care Computer Numerical Control Machinist Name Role Phone Lorna Bal APRN Primary Care Provider +1 -[phone] Reason for Referral * Diagnostic Test (Routine) - New Request Specialty Diagnoses / Procedures Referred By Contac t Referred To Contact Radiology Diagnoses Spinal abscess Procedures IR Drain Check/Change/Remove Hank Nunez PA [facility] [place] [address] [place] [address] Referral ID Status Reason Start Date Expiration Date Visits Requested Visits Authorized [id number] New Request Specialty Service Requested 08/21/2022 02/21/2024 1 1 Encounter Details Date Type Department Care Team (Late st Contact Info) Description 08/21/2022 [place] [address] Hank Nunez PA [facility] [place] [address] Spinal abscess Social History Tobacco [...] PM EST Office [place] [address] Hollie Ambriz MD [facility] [place] [address] documented as of this encounter Results * [...] dislodged and replaced on 07/24. Additional 8 Moldovan drain placed into adjacent L2/L3 collection at [...] throughout. ?? More Caudal Lumbar Drainage Catheter: Media Supervisor fluoroscopic images were obtained. ??Contrast was injected through the catheter and repeat fluoroscopic images were obtained. The drainage catheter was left in place. ??A sterile dressing was applied. ?? More Cranial Lumbar Drainage Catheter: Media Supervisor fluoroscopic images were obtained. ??Contrast was injected [...] sequela documented in this encounter Care Teams Computer Numerical Control Machinist Relationship Specialty Start Date End Date Lorna Bal, BOXING INSTRUCTOR [address] [place] [address] PCP - General Family Medicine 05/27/18 documented as of this encounter
--- OUTSIDE RECORDS SUMMARY | 2024-01-12 21:15 | XMS_ITS | Encounter Summary ---
[place] [address] Care Team Providers Care Explosive Ordnance Disposal Manager Name Role Phone Lorna Bal APRN Primary Care Provider +1 -[phone] Encounter Details Date Type Department Care Team [...] PM EST Office [place] [address] Hollie Ambriz MD [facility] [place] [address] documented as of this encounter Visit Diagnoses Not on filedocumented in this encounter Care Teams Explosive Ordnance Disposal Manager Relationship Specialty Start Date End Date Lorna Bal APRN [address] [place] [address] PCP - General Family Medicine 05/27/18 documented as of this encounter
--- OUTSIDE RECORDS SUMMARY | 2024-01-12 21:15 | XMS_ITS | Encounter Summary ---
[place] [address] Care Team Providers Care Peanut Separator Name Role Phone Lorna Bal APRN Primary Care Provider +1 -[phone] Encounter Details Date Type Department Care Team (Latest Contact Info) Description 09/26/2022 Travel Social History Tobacco Use Types Packs/Day Years Used Date Smoking Tobacco: Never Smokeless Tobacco: Never Comments:NO SMOKERS IN THE H OME Alcohol Use Standard Drinks/Week Comments No 0 (1 standard drink = 0.6 oz pur e alcohol) [facility] Inpatient Questions Answer Date Recorded Does Anyone [...] PM EST Office Visit [place] [phone] Hollie Ambriz MD [facility] [place] [address] documented as of this encounter Visit Diagnoses Not on filedocumented in this encounter Care Teams Peanut Separator Relationship Specialty Start Date End Date Lorna Bal APRN [address] [place] [address] PCP - General Family Medicine 05/27/18 documented as of this encounter
--- OUTSIDE RECORDS SUMMARY | 2024-01-12 21:15 | XMS_ITS | Encounter Summary ---
Author Organization [facility] Address [facility] [place] [address] Care Team Providers Care Health Informatics Advisor Name Role Phone Lorna Bal APRN Primary Care Provider +1 -[phone] Encounter Details Date Type Department Care Team (Late st Contact Info) Description 09/24/2022 Orders [place] [address] Hank Nunez PA [facility] [place] [address] Social History Tobacco Use Types Packs/Day Years [...] Patient Name: Tana Cavazos : 1995 MR#: [id number] Spoke with Anderson regarding concerns regarding overall plan for Tana. Recommended she attend her appointments in [place] in hope of guiding toward more definitive [...] EST Office Visit [place] [address] Hollie Ambriz MD [facility] [place] [address] documented as of this encounter Visit Diagnoses Not on filedocumented in this encounter Care Teams Health Informatics Advisor Relationship Specialty Start Date End Date Lorna Bal APRN [address] [place] [address] PCP - General Family Medicine 05/27/18 documented as of this encounter
--- OUTSIDE RECORDS SUMMARY | 2024-01-12 21:15 | XMS_ITS | Encounter Summary ---
Author Organization [facility] [place] [address] Care Team Providers Care Supervisor Mail Carriers Name Role Phone Lorna Bal APRN Primary Care Provider +1 -[phone] Reason for Referral * Diagnostic Test (Routine) [...] sequela Procedures IR Drain Check/Change/Remove Jamaal Jenkins, [facility] [place] [address] [place] [address] Referral ID Status Reason Start Date Expiration Date Visits Requested Visits Authorized [id number] Pending Review Specialty Service Requested 08/25/2022 02/26/2024 [...] IR Drain Check/Change/Remove Jamaal Jenkins, [facility] [place] [address] [place] [address] Referral ID Status Reason Start Date Expiration Date Visits Requested Visits Authorized [id number] Pending Review Specialty Service Requested 08/25/2022 02/26/2024 1 1 Encounter Details Date Type Department Care Team (Latest Contact Info) Description 09/10/2022 10:49 AM EDT - 09/10/2022 11:59 PM EDT Hospital Encounter [place] [address] Jamaal Jenkins, [facility] [place] [address] Spinal abscess; Abscess; Contracture of left elbow; [...] Qiu RN - 09/10/2022 12:55 PM EDT [facility] Vascular and Interventional Radiology Discharge Instructions [...] is during regular office hours, please call [phone]. If it is after regular office hours, or on weekends or holidays, please call [phone] and ask to speak to the Bead Supervisor insulation mechanic for Interventional Radiology. You may resume your [...] of this encounter Progress Notes * Reji Qui RN - 09/05/2022 10:59 AM EDT [facility] Name: Tana Cavazos Date of : 1995 AGE: 27 y.o. Address: [address] [place] [address] Phone: [phone] (home) Mobile: Telephone Information: Referring Provider: Jamaal [...] performed? [facility] Radiology [120] Reason for exam and clinical history: Paraspinal abscesses status post drain palcement. Persistent collections. Drain repositioned 08/25. Routine 3-week drain check. Is the patient ? No Is the patient on anticoagulant / antiplatelet therapy ? No Allergies Allergen Reactions ??? Fluoxetine Other (See Comments) HIVES, HEART RACES ??? Tegaderm [Transparent Dressings] Itching and Dermatitis Please use [id number] ??? Penicillins Pertinent PMH: Patient Active Problem [...] MD [facility] INTERVENTIONL RAD ??? IR ALL DRAINAGE PROCEDURES 07/04/2022 IR All Drainage Procedures 07/04/[address] [facility] INTERVENTIONL RAD ??? IR ALL DRAINAGE PROCEDURES 07/24/2022 IR All Drainage Procedures 07/24/[address] [facility] INTERVENTIONL RAD ??? IR DRAIN CHECK/CHANGE/REMOVE 07/01/2022 IR Drain Check/Change/Remove 07/01/2022 Jamaal Jenkins, DO [facility] INTERVENTIONL RAD ??? IR DRAIN CHECK/CHANGE/REMOVE 08/11/2022 IR Drain Check/Change/Remove 08/11/[address] [facility] INTERVENTIONL RAD ??? IR DRAIN CHECK/CHANGE/REMOVE 08/25/2022 IR Drain Check/Change/Remove 08/25/2022 Jamaal Jenkins, DO [facility] INTERVENTIONL RAD ??? PRO APPLY OF HIP CASTS, TWO LEGS 08/15/2010 CAST APPLICATION, HIP SPICA, BOTH LEGS performed by BARRERA OLIVER at [facility] OR ? ? PRO I&D, POST SPINE, LUMB/SACR/LUMBOSAC N/A 05/20/2014 @I & D, OPEN, DEEP ABSCESS, LUMBAR, SACRAL, LUMBOSACRAL performed by Freddy Isbell MD at [facility] OR ? ? PRO I&D, POST SPINE, LUMB/SACR/LUMBOSAC N/A 05/26/2014 @I & D, OPEN, DEEP ABSCESS, LUMBAR, SACRAL, LUMBOSACRAL performed by Freddy Isbell MD at [facility] OR ??? PRO IMPACT TOOTH REMOV COMP BONY N/A 06/14/2018 SURGICAL EXTRACTIONS, REMOVAL OF IMPACTED TOOTH, COMPLETELY BONY (WRVU 1.93) performed by Keith Cotton MD at [facility] OSC ??? PRO OSTEOTOMY FEMUR SHAFT/SUPRACONDY 08/15/2010 ??OSTEOTOMY, FEMUR SHAFT OR SUPRACONDYLAR W/O FIXATION performed by BARRERA OLIVER at [facility] OR ??? PRO RECONSTRUC HIP SOCKET, RESEC FEM HEAD 08/15/2010 ??ACETABULOPLASTY (GIRDLESTONE), RESECTION FEMORAL HEAD, BILATERAL performed by BARRERA OLIVER [facility] OR ??? PRO REMOVAL DEEP IMPLANT 08/15/2010 REMOVAL IMPLANT, DEEP, BRUNO performed by BARRERA OLIVER at [facility] OR ??? PRO REMOVAL ERUPTED TOOTH WITH ELEVATION OF MUCOPERIOSTEAL FLAP N/A 06/14/2018 SURGICAL EXTRACTIONS REQUIRING ELEVATION OF MUCOPERIOSTEAL FLAP AND REMOVAL OF BONE OR SECTION OF TOOTH (WRVU 1.09) performed by Keith Cotton MD at [facility] OSC ??? PRO REMOVE INFUSN DEVICE/PUMP N/A 05/11/2014 REMOVAL OF SPINE INFUSION PUMP performed by Jamaal Samuel MD at [facility] MAIN OR ??? PRO REMOVE SPINAL CANAL CATHETER N/A 05/11/2014 REMOVAL OF INTRATHECAL OR EPIDURAL CATHETER performed by Jamaal Samuel MD at [facility] MAIN OR ??? PRO REPR, DURAL/CSF LEAK, NOT REQ LAMINECTOMY N/A 05/20/2014 @REPAIR DURAL\CSF LEAK,NOT REQUIRING LAMINECTOMY performed by Freddy Isbell MD at [facility] MAIN OR Medications: Current Outpatient Medications on [...] PM EST Office Visit [place] [address] Hollie Ambriz MD [facility] [place] [address] documented as of this encounter Procedures Procedure [...] mLs documented in this encounter Care Teams Supervisor Mail Carriers Relationship Specialty Start Date End Date Lorna Bal, [place] [address] [place] [address] PCP - General Family Medicine 05/27/18 documented as of this encounter
--- OUTSIDE RECORDS SUMMARY | 2024-01-12 21:15 | XMS_ITS | Encounter Summary ---
Author Organization [facility] [place] [address] Care Team Providers Care Head Men'S Tennis Coach Name Role Phone Lorna Bal APRN Primary Care Provider +1 [phone] Encounter Details Date Type Department Care Team (Late st Contact Info) Description 08/15/2022 Telephone [place] [address] Shawn Woodard MD [facility] [address] [place] [address] Social History Tobacco Use Types Packs/Day Years [...] to answer her earlier call to the [facility] nursing group with concerns. She was both confused after her clinic appointment of two days ago, when she feels that she received two different messages from the fellow and attending she saw (one suggesting there may not even olmedo infection and the other that Tana might need to be on antibiotics for life); and also concernedabout a levelock of erythema which she had noted around [...] may not be curable (hence discussion about ferry terminal agent antibiotics), especially with the remaining screw, which [...] PM EST Office [place] [address] Hollie Ambriz MD [facility] [address] [place] [address] documented as of this encounter Visit Diagnoses Not on filedocumented in this encounter Care Teams Head Men'S Tennis Coach Relationship Specialty Start Date End Date Lorna Bal APRN [address] [place] [address] PCP - General Family Medicine 05/27/18 documented as of this encounter
--- OUTSIDE RECORDS SUMMARY | 2024-01-12 21:15 | XMS_ITS | Encounter Summary ---
Author Organization [facility] [place] [address] Care Team Providers Care Carousel Operator Name Role Phone Lorna Bal APRN Primary Care Provider +1 [phone] Encounter Details Date Type Department Care Team (Latest Contact Info) Description 08/25/2022 [place] [id number] Lorna Bal APRN [address] [place], [place] [id number] Escherichia coli septicemia; Intraspinal abscess; Spinal cord [...] PM EST Office [place] [address] Hollie Ambriz MD [facility] [place] [address] documented as of this encounter Visit Diagnoses Diagnosis Escherichia coli septicemia Septicemia due to Escherichia coli (E. coli) Intraspinal abscess Spinal cord abscess Acute osteomyelitis, other specified site documented in this encounter Care Teams Carousel Operator Relationship Specialty Start Date End Date Lorna Bal APRN [address] [place] [address] PCP - General Family Medicine 05/27/18 documented as of this encounter
--- OUTSIDE RECORDS SUMMARY | 2024-01-12 21:15 | XMS_ITS | Encounter Summary ---
[place] [address] Care Team Providers Care Desizing Machine Offbearer Name Role Phone Lorna Bal APRN Primary Care Provider +1 -[phone] Encounter Details Date Type Department Care Team (Latest Contact Info) Description 08/13/2022 Travel Social History Tobacco Use Types Packs/Day Years Used Date Smoking Tobacco: Never Smokeless Tobacco: Never Comments:NO SMOKERS IN THE H OME Alcohol Use Standard Drinks/Week Comments No 0 (1 standard drink = 0.6 oz pur e alcohol) [facility] Inpatient Questions Answer Date Recorded [...] EST Office Visit [place] [address] Hollie Ambriz MD [facility] [place] [address] documented as of this encounter Visit Diagnoses Not on filedocumented in this encounter Care Teams Desizing Machine Offbearer Relationship Specialty Start Date End Date oLrna Bal APRN [address] [place] [address] PCP - General Family Medicine 05/27/18 documented as of this encounter
--- OUTSIDE RECORDS SUMMARY | 2024-01-12 21:15 | XMS_ITS | Encounter Summary ---
[place] [address] Care Team Providers Care Surveyor Helper Name Role Phone Lorna Bal APRN Primary Care Provider +1 -[phone] Reason for Referral * Diagnostic Test (Routine) - New Request Specialty Diagnoses / Procedures Referred By Contac t Referred To Contact Radiology Diagnoses Spinal abscess Procedures IR Drain Check/Change/Remove Lucho Burciaga MD [facility] [place] [address] [place] [address] Referral ID Status Reason Start Date Expiration Date Visits Requested Visits Authorized [id number] New Request Specialty Service Requested 07/24/2022 01/25/2024 1 1 Reason for Visit * Diagnostic Test (Routine) - New Request Specialty Diagnoses / Procedures Referred By Contac t Referred To Contact Radiology Diagnoses Spinal abscess Procedures IR Drain Check/Change/Remove Lucho Burciaga MD [facility] [place] [address] [facility] [place] [address] Referral ID Status Reason Start Date Expiration Date Visits Requested Visits Authorized [id number] New Request Specialty Service Requested 07/24/2022 01/25/2024 1 1 Encounter Details Date Type Department Care Team (Latest Contact Info) Description 08/11/2022 11:53 AM EDT - 08/11/2022 11:59 PM EDT Hospital [place] [address] Anurag Kumar MD [facility] [place] [address] Spinal abscess Discharge Disposition: Home [...] is during regular office hours, please call [phone]. If it is after regular office hours, or on weekends or holidays, please call [phone] and ask to speak to the Middle School Football Coach printed circuit boards contact printer for Interventional Radiology. XX You have received [...] of : 1995 AGE: 27 y.o. Address: [address] [place] [address] Phone: [phone] (home) Mobile: Telephone Information: Referring Provider: Lucho C Stoner REASON FOR VISIT: Order Questions Answers Where will study be performed? [facility] Radiology [120] Reason for exam and clinical history: Sacral and L2-L3 soft tissuel fluid collections Is the patient ? No Is the patient on anticoagulant / antiplatelet therapy ? No Allergies Allergen Reactions ??? Fluoxetine Other (See Comments) HIVES, HEART RACES ??? Tegaderm [Transparent Dressings] Itching and Dermatitis Please use [id number] ??? Penicillins Pertinent PMH: Patient Active Problem [...] Questions Answers Where will study be performed? [facility] Radiology [120] Reason for exam and clinical [...] All Drainage Procedures 06/25/2022 Mich Martino MD [facility] INTERVENTIONL RAD ??? IR ALL DRAINAGE PROCEDURES 07/04/2022 IR All Drainage Procedures 07/04/2022 Mich Martino MD [facility] INTERVENTIONL RAD ??? IR ALL DRAINAGE PROCEDURES 07/24/2022 IR All Drainage Procedures 07/24/2022 Anurag Kumar MD [facility] INTERVENTIONL RAD ??? IR DRAIN CHECK/CHANGE/REMOVE 07/01/2022 IR Drain Check/Change/Remove 07/01/2022 Jamaal Jenkins, DO [facility] INTERVENTIONL RAD ??? PRO APPLY OF HIP CASTS, TWO LEGS 08/15/2010 CAST APPLICATION, HIP SPICA, BOTH LEGS performed by BARRERA OLIVER at [facility] MAIN OR ? ? PRO I&D, POST SPINE, LUMB/SACR/LUMBOSAC N/A 05/20/2014 @I & D, OPEN, DEEP ABSCESS, LUMBAR, SACRAL, LUMBOSACRAL performed by Freddy Isbell MD at [facility] OR ? ? PRO I&D, POST SPINE, LUMB/SACR/LUMBOSAC N/A 05/26/2014 @I & D, OPEN, DEEP ABSCESS, LUMBAR, SACRAL, LUMBOSACRAL performed by Freddy Isbell MD at [facility] MAIN OR ??? PRO IMPACT TOOTH REMOV COMP BONY N/A 06/14/2018 SURGICAL EXTRACTIONS, REMOVAL OF IMPACTED TOOTH, COMPLETELY BONY (WRVU 1.93) performed by Keith Cotton MD at [facility] OSC ??? PRO OSTEOTOMY FEMUR SHAFT/SUPRACONDY 08/15/2010 ??OSTEOTOMY, FEMUR SHAFT OR SUPRACONDYLAR W/O FIXATION performed by BARRERA OLIVER at [facility] MAIN OR ??? PRO RECONSTRUC HIP SOCKET, RESEC FEM HEAD 08/15/2010 ??ACETABULOPLASTY (GIRDLESTONE), RESECTION FEMORAL HEAD, BILATERAL performed by BARRERA OLIVER [facility] OR ??? PRO REMOVAL DEEP IMPLANT 08/15/2010 REMOVAL IMPLANT, DEEP, BRUNO performed by BARRERA OLIVER at [facility] OR ??? PRO REMOVAL ERUPTED TOOTH WITH ELEVATION OF MUCOPERIOSTEAL FLAP N/A 06/14/2018 SURGICAL EXTRACTIONS REQUIRING ELEVATION OF MUCOPERIOSTEAL FLAP AND REMOVAL OF BONE OR SECTION OF TOOTH (WRVU 1.09) performed by Keith Cotton MD at [facility] OSC ??? PRO REMOVE INFUSN DEVICE/PUMP N/A 05/11/2014 REMOVAL OF SPINE INFUSION PUMP performed by Jamaal Samuel MD at [facility] MAIN OR ??? PRO REMOVE SPINAL CANAL CATHETER N/A 05/11/2014 REMOVAL OF INTRATHECAL OR EPIDURAL CATHETER performed by Jamaal Samuel MD at [facility] MAIN OR ??? PRO REPR, DURAL/CSF LEAK, NOT REQ LAMINECTOMY N/A 05/20/2014 @REPAIR DURAL\CSF LEAK,NOT REQUIRING LAMINECTOMY performed by Freddy Ibsell MD at [facility] MAIN OR Social History and Habits: Social [...] PM EST Office [place] [address] Hollie Ambriz MD [facility] [place] [address] documented as of this encounter Procedures Procedure [...] mg documented in this encounter Care Teams Surveyor Helper Relationship Specialty Start Date End Date Lorna Bal APRN [address] [place] [address] PCP - General Family Medicine 05/27/18 documented as of this encounter
--- OUTSIDE RECORDS SUMMARY | 2024-01-12 21:15 | XMS_ITS | Encounter Summary ---
Author Organization [facility] Address [place] [address] Care Team Providers Care Corset Fitter Name Role Phone Lorna Bal APRN Primary Care Provider +1 -[phone] Encounter Details Date Type Department Care Team (Late st Contact Info) Description 08/07/2022 1:00 PM EDT TH Visit (TeleHealth) [place] [address] Lilli Joy APRN [facility] [place] [address] Spinal abscess; Acute hematogenous osteomyelitis, unspecified site; [...] this encounter Progress Notes * Lilli Joy, PRECISION GRINDER - 08/07/2022 1:00 PM EDT .. INFECTIOUS [...] [Transparent Dressings] Itching and Dermatitis Please use [id number] ??? Penicillins Physical Exam: Deferred Labs: Lab [...] Office [place] [address] Hollie Ambriz MD [facility] [place] [address] documented as of this encounter Visit Diagnoses [...] documented as of this encounter Care Teams Corset Fitter Relationship Specialty Start Date End Date Lorna Bal APRN [address] [place] [address] PCP - General Family Medicine 05/27/18 documented as of this encounter
--- OUTSIDE RECORDS SUMMARY | 2024-01-12 21:15 | XMS_ITS | Encounter Summary ---
Author Organization [facility] [place] [address] Care Team Providers Care Band Builder Name Role Phone Lorna Bal APRN Primary Care Provider +1 -[phone] Reason for Referral * Diagnostic Test (Routine) - Closed Specialty Diagnoses / Procedures Referred By Contac t Referred To Contact Radiology Diagnoses Abscess Procedures CT Lumbar Spine w Contrast [place] [address] [place] [address] Referral ID Status Reason Start Date Expiration Date V isits Requested Visits Authorized [id number] Closed Specialty Service Requested 08/12/2022 02/12/2024 1 1 Reason for Visit * Diagnostic Test (Routine) - Closed Specialty Diagnoses / Procedures Referred By Contac t Referred To Contact Radiology Diagnoses Abscess Procedures CT Lumbar Spine w Contrast [place] [address] [facility] [place] [address] Referral ID Status Reason Start Date Expiration Date V isits Requested Visits Authorized [id number] Closed Specialty Service Requested 08/12/2022 02/12/2024 1 1 Encounter Details Date Type Department Care Team (Latest Contact Info) Description 08/13/2022 8:33 AM EDT - 08/13/2022 11:59 PM EDT Hospital [place] [address] [place] [address] Abscess Discharge Disposition: Home Social [...] PM EST Office Visit Infectious Disease at [facility] [place] [address] Hollie Ambriz MD [facility] [place] [address] documented as of this encounter Procedures Procedure [...] who have questions please contact the health neonatal critical care nurse that requested your imaging first. ? Electronically signed by: Jamaal Villafuerte [facility] ([phone]), at 08/13/2022 4:52 PM Narrative 08/13/2022 4:52 [...] patients who have questions please contactthe health neonatal critical care nurse that requested your imaging first. Electronically signed by: Jamaal Villafuerte [facility]([phone]), at 08/13/2022 4:52 PM Jamshid Collins MD [...] mLs documented in this encounter Care Teams Band Builder Relationship Specialty Start Date End Date Lorna Bal APRN [address] [place] [address] PCP - General Family Medicine 05/27/18 documented as of this encounter
--- OUTSIDE RECORDS SUMMARY | 2024-01-12 21:15 | XMS_ITS | Encounter Summary ---
Author [facility] [place] [address] Care Team Providers Care Woodwork Salvage Inspector Name Role Phone Lorna Bal APRN Primary Care Provider +1 -[phone] Encounter Details Date Type Department Care Team (Late st Contact Info) Description 08/06/2022 Telephone [place] [address] Halima García Social History Tobacco Use Types [...] PM EST Office [place] [address] Hollie Ambriz MD [facility] [place] [address] documented as of this encounter Visit Diagnoses Not on filedocumented in this encounter Additional Health Concerns Infection Onset Date Last Indicated Resolved Time Enterovirus / Rhinovirus 07/28/2022 07/28/2022 8:09 PM EDT documented as of this encounter Care Teams Woodwork Salvage Inspector Relationship Specialty Start Date End Date Lorna Bal APRN [address] [place] [address] PCP - General Family Medicine 05/27/18 documented as of this encounter
--- OUTSIDE RECORDS SUMMARY | 2024-01-12 21:15 | XMS_ITS | Encounter Summary ---
Author Organization [facility] [place] [address] Care Team Providers Care Car Dryer Name Role Phone Lorna Bal APRN Primary Care Provider +1 -[phone] Reason for Referral * Diagnostic Test (Routine) - Closed Specialty Diagnoses / Procedures Referred By Contac t Referred To Contact Radiology Diagnoses Spinal abscess Procedures CT Lumbar Spine w Contrast Jamar Dasilva MD [facility] [address] [facility] [place] [address] Referral ID Status Reason Start Date Expiration Date V isits Requested Visits Authorized [id number] Closed Specialty Service Requested 09/25/2022 03/27/2024 1 1 Reason for Visit * Diagnostic Test (Routine) - Closed Specialty Diagnoses / Procedures Referred By Contac t Referred To Contact Radiology Diagnoses Spinal abscess Procedures CT Lumbar Spine w Contrast Jamar Dasilva MD [facility] [place] [address] [facility] [place] [address] Referral ID Status Reason Start Date Expiration Date V isits Requested Visits Authorized [id number] Closed Specialty Service Requested 09/25/2022 03/27/2024 1 1 Encounter Details Date Type Department Care Team (Latest Contact Info) Description 09/26/2022 10:24 AM EDT - 09/26/2022 12:12 PM EDT Hospital [place] [address] Jamar Dasilva MD [facility] [address] Spinal abscess Discharge Disposition: Home [...] PM EST Office Visit Infectious Disease at [facility] [place] [address] Hollie Ambriz MD [facility] [place] [address] documented as of this encounter Procedures Procedure [...] who have questions please contact the health direct care provider that requested your imaging first. [...] patients who have questions please contactthe health direct care provider that requested your imaging first. Jamar Dasilva [...] mLs documented in this encounter Care Teams Car Dryer Relationship Specialty Start Date End Date Lorna Bal, [place] [address] [place] [address] PCP - General Family Medicine 05/27/18 documented as of this encounter
--- OUTSIDE RECORDS SUMMARY | 2024-01-12 21:15 | XMS_ITS | Encounter Summary ---
Author Organization [facility] [place] [address] Care Team Providers Care Manual Arts Teacher Name Role Phone Lorna Bal APRN Primary Care Provider +1 -[phone] Reason for Referral * Diagnostic Test (Routine) - Closed Specialty Diagnoses / Procedures Referred By Contac t Referred To Contact Radiology Diagnoses Spinal abscess Procedures CT Lumbar Spine w Contrast Jamra Dasilva MD [facility] [place] [address] [facility] [address] [place] [address] Referral ID Status Reason Start Date Expiration Date V isits Requested Visits Authorized [id number] Closed Specialty Service Requested 09/25/2022 03/27/2024 1 1 Encounter Details Date Type Department Care Team (Late st Contact Info) Description 09/25/2022 Orders Only [place] [address] Jamar Dasilva MD [facility] [place] [address] Spinal abscess Social History Tobacco [...] PM EST Office Visit [place] [address] Hollie Ambriz MD [facility] [place] [address] documented as of this encounter Results * [...] signed by: Pantera Salazar MD, [facility] ([phone]), at 09/26/2022 10:59 AM Narrative 09/26/2022 10:59 [...] care specialist that requested your imaging first. Jamar Dasilva MD IMG CT ORDERABLES documented in this encounter Visit Diagnoses Diagnosis Spinal abscess Acute osteomyelitis, other specified site Spinal abscess Acute osteomyelitis, other specified site documented in this encounter Care Teams Manual Arts Teacher Relationship Specialty Start Date End Date Lorna Bal, [address] [place] [address] PCP - General Family Medicine 05/27/18 documented as of this encounter
--- OUTSIDE RECORDS SUMMARY | 2024-01-12 21:15 | XMS_ITS | Encounter Summary ---
[place] [address] Care Team Providers Care Trust Manager Assistant Name Role Phone Lorna Bal APRN Primary Care Provider +1 -[phone] Encounter Details Date Type Department Care Team (Late st Contact Info) Description 08/25/2022 Transcribe [place] [phone] Lorna Bal APRN [address] [place], [place] [address] Social History Tobacco Use Types Packs/Day Years [...] Visit [place] [address] Hollie Ambriz MD [facility] [address] [place] [address] documented as of this encounter Visit Diagnoses Not on filedocumented in this encounter Care Teams Trust Manager Assistant Relationship Specialty Start Date End Date Lorna Bal APRN [address] [place] [address] PCP - General Family Medicine 05/27/18 documented as of this encounter
--- OUTSIDE RECORDS SUMMARY | 2024-01-12 21:15 | XMS_ITS | Encounter Summary ---
[place] [address] Care Team Providers Care Shipping Room Supervisor Name Role Phone Lorna Bal APRN Primary Care Provider +1 -[phone] Encounter Details Date Type Department Care Team (Latest Contact Info) Description 08/25/2022 4:30 PM EDT Laboratory Appointment Lab [place] [address] Spinal abscess; Bacteremia; E coli infection; Soft [...] PM EST Office [place] [address] Hollie Ambriz MD [facility] [place] [address] documented as of this encounter Visit Diagnoses Diagnosis Spinal abscess Acute osteomyelitis, other specified site Bacteremia E coli infection Other and unspecified Escherichia coli (E. coli) Soft tissue abscess Cellulitis and abscess of other specified site Muscle abscess Other disorder of muscle, ligament, and fascia documented in this encounter Care Teams Shipping Room Supervisor Relationship Specialty Start Date End Date Lorna Bal APRN [address] [place] [address] PCP - General Family Medicine 05/27/18 documented as of this encounter
--- OUTSIDE RECORDS SUMMARY | 2024-01-12 21:15 | XMS_ITS | Encounter Summary ---
[place] [address] Care Team Providers Care Checker Dump Grounds Name Role Phone Lorna Bal APRN Primary Care Provider +1 -[phone] Encounter Details Date Type Department Care Team [...] PM EST Office Visit [place] [phone] Hollie Ambriz MD [facility] [place] [address] documented as of this encounter Visit Diagnoses Not on filedocumented in this encounter Care Teams Checker Dump Grounds Relationship Specialty Start Date End Date Lorna Bal APRN [address] [place] [address] PCP - General Family Medicine 05/27/18 documented as of this encounter
--- OUTSIDE RECORDS SUMMARY | 2024-01-12 21:15 | XMS_ITS | Encounter Summary ---
[place] [address] Care Team Providers Care Tenant Coordinator Name Role Phone Lorna Bal APRN Primary Care Provider +1 -[phone] Encounter Details Date Type Department Care Team [...] Office [place] [address] Hollie Ambriz MD [facility] [place] [address] documented as of this encounter Visit Diagnoses Not on filedocumented in this encounter Care Teams Tenant Coordinator Relationship Specialty Start Date End Date Lorna Bal APRN [address] [place] [address] PCP - General Family Medicine 05/27/18 documented as of this encounter
--- OUTSIDE RECORDS SUMMARY | 2024-01-12 21:15 | XMS_ITS | Encounter Summary ---
Author Organization [facility] [place] [address] Care Team Providers Care Numerical Control Machine Operator Name Role Phone Lorna Bal APRN Primary Care Provider +1 -[phone] Encounter Details Date Type Department Care Team (Late st Contact Info) Description 09/05/2022 Telephone [place] [address] Valentina Stanton Social History Tobacco Use Types [...] Office [place] [address] Hollie Ambriz MD [facility] [place] [address] documented as of this encounter Visit Diagnoses Not on filedocumented in this encounter Care Teams Numerical Control Machine Operator Relationship Specialty Start Date End Date Lorna Bal, ACREAGE REPORTER [address] [place] [address] PCP - General Family Medicine 05/27/18 documented as of this encounter
--- OUTSIDE RECORDS SUMMARY | 2024-01-12 21:15 | XMS_ITS | Encounter Summary ---
Author Organization [facility] [place] [address] Care Team Providers Care Mucking Machine Operator Name Role Phone Lorna Bal APRN Primary Care Provider +1 -[phone] Reason for Referral * Home Health Care (Routine) - Denied Specialty Diagnoses / Procedures Referred By Contac t Referred To Contact Diagnoses Spinal abscess [place] [address] [facility] [address] [place] [phone] Referral ID Status Reason Start Date Expiration Date V isits Requested Visits Authorized [id number] Denied Consult, Test & Treat 08/06/2022 08/06/2023 999 0 Encounter Details Date Type Department Care Team (Late st Contact Info) Description 08/06/2022 Orders [place] [address] Curt Torres MD [place], [place] [id number] Spinal abscess Social History Tobacco Use Types [...] PM EST Office [place] [address] Hollie Ambriz MD [facility] [place] [address] Scheduled Referrals Name Type Priority Associated Diagnoses [...] documented as of this encounter Care Teams Mucking Machine Operator Relationship Specialty Start Date End Date Lorna Bal APRN [address] [place] [address] PCP - General Family Medicine 05/27/18 documented as of this encounter
--- OUTSIDE RECORDS SUMMARY | 2024-01-12 21:15 | XMS_ITS | Encounter Summary ---
Author Organization [facility] [place] [address] Care Team Providers Care Manager Metrology Name Role Phone Lorna Bal APRN Primary Care Provider +1 -[phone] Reason for Referral * Diagnostic Test (Routine) [...] sequela Procedures IR Drain Check/Change/Remove Jamaal Jenkins, [facility] [place] [place] [address] [facility] [place] [address] Referral ID Status Reason Start Date Expiration Date Visits Requested Visits Authorized [id number] Pending Review Specialty Service Requested 08/25/2022 02/26/2024 1 1 * Diagnostic Test (Routine) - New Request Specialty Diagnoses / Procedures Referred By Contac t Referred To Contact Radiology Diagnoses Spinal abscess Procedures IR Drain Check/Change/Remove Hank Nunez PA [facility] [place] [address] [place] [address] Referral ID Status Reason Start Date Expiration Date Visits Requested Visits Authorized [id number] New Request Specialty Service Requested 08/21/2022 02/21/2024 1 1 Reason for Visit * Diagnostic Test (Routine) - New Request Specialty Diagnoses / Procedures Referred By Contac t Referred To Contact Radiology Diagnoses Spinal abscess Procedures IR Drain Check/Change/Remove Hank Nunez PA [facility] [place] [address] [place] [address] Referral ID Status Reason Start Date Expiration Date Visits Requested Visits Authorized [id number] New Request Specialty Service Requested 08/21/2022 02/21/2024 1 1 Encounter Details Date Type Department Care Team (Latest Contact Info) Description 08/25/2022 12:57 PM EDT - 08/25/2022 11:59 PM EDT Hospital Encounter [place] [address] Piter Self MD [facility] DIAGNOSTIC [place] [address] Spinal abscess; Abscess; Contracture of left elbow; [...] is during regular office hours, please call [phone]. If it is after regular office hours, or on weekends or holidays, please call [phone] and ask to speak to the Instant Potato Processing Supervisor hyperion analyst for Interventional Radiology. XX You have [...] of : 1995 AGE: 27 y.o. Address: [address] [place] [address] Phone: [phone] (home) Mobile: Telephone Information: Referring Provider: Hank Nunez REASON FOR VISIT: Order Questions Answers Where will study be performed? [facility] Radiology [120] Reason for exam and [...] [Transparent Dressings] Itching and Dermatitis Please use [id number] ??? Penicillins Pertinent PMH: Patient Active Problem [...] dislodged and replaced on 07/24. Additional 8 Albanian drain placed into adjacent L2/L3 collection at [...] All Drainage Procedures 06/25/2022 Mich Martino MD [facility] INTERVENTIONL RAD ??? IR ALL DRAINAGE PROCEDURES 07/04/2022 IR All Drainage Procedures 07/04/2022 Mich Martino MD [facility] INTERVENTIONL RAD ??? IR ALL DRAINAGE PROCEDURES 07/24/2022 IR All Drainage Procedures 07/24/2022 Anurag Kumar MD [facility] INTERVENTIONL RAD ??? IR DRAIN CHECK/CHANGE/REMOVE 07/01/2022 IR Drain Check/Change/Remove 07/01/2022 Jamaal Jenkins, DO [facility] INTERVENTIONL RAD ??? PRO APPLY OF HIP CASTS, TWO LEGS 08/15/2010 CAST APPLICATION, HIP SPICA, BOTH LEGS performed by BARRERA OLIVER at [facility] OR ? [...] 1.93) performed by Keith Cotton MD at [facility] OSC ??? PRO OSTEOTOMY FEMUR SHAFT/SUPRACONDY 08/15/2010 ??OSTEOTOMY, FEMUR SHAFT OR SUPRACONDYLAR W/O FIXATION performed by BARRERA OLIVER at [facility] MAIN OR ??? PRO RECONSTRUC HIP SOCKET, RESEC FEM HEAD 08/15/2010 ??ACETABULOPLASTY (GIRDLESTONE), RESECTION FEMORAL HEAD, BILATERAL performed by BARRERA OLIVER [facility] MAIN OR ??? PRO REMOVAL DEEP IMPLANT 08/15/2010 REMOVAL IMPLANT, DEEP, BRUNO performed by BARRERA OLIVER at [facility] MAIN OR ??? PRO REMOVAL ERUPTED TOOTH WITH ELEVATION OF MUCOPERIOSTEAL FLAP N/A 06/14/2018 SURGICAL EXTRACTIONS REQUIRING ELEVATION OF MUCOPERIOSTEAL FLAP AND REMOVAL OF BONE OR SECTION OF TOOTH (WRVU 1.09) performed by Keith Cotton MD at [facility] OSC ??? PRO REMOVE INFUSN DEVICE/PUMP N/A 05/11/2014 REMOVAL OF SPINE INFUSION PUMP performed by Jamaal Samuel MD at [facility] MAIN OR ??? PRO REMOVE SPINAL CANAL CATHETER N/A 05/11/2014 REMOVAL OF INTRATHECAL OR EPIDURAL CATHETER performed by Jamaal Samuel MD at [facility] OR ??? PRO REPR, DURAL/CSF LEAK, NOT REQ LAMINECTOMY N/A 05/20/2014 @REPAIR DURAL\CSF LEAK,NOT REQUIRING LAMINECTOMY performed by Freddy Isbell MD at [facility] OR Medications: Current Outpatient Medications on File [...] [place] [address] Hollie Ambriz MD [facility] [place] [address] documented as of this encounter Procedures Procedure [...] dislodged and replaced on 07/24. Additional 8 Albanian drain placed into adjacent L2/L3 collection at [...] throughout. ?? More Caudal Lumbar Drainage Catheter: Construction Assistant fluoroscopic images were obtained. ??Contrast was injected through the catheter and repeat fluoroscopic images were obtained. The drainage catheter was left in place. ??A sterile dressing was applied. ?? More Cranial Lumbar Drainage Catheter: Construction Assistant fluoroscopic images were obtained. ??Contrast was injected [...] documented in this encounter Care Teams Manager Metrology Relationship Specialty Start Date End Date Lorna Bal APRN [address] [place] [address] PCP - General Family Medicine 05/27/18 documented as of this encounter
--- OUTSIDE RECORDS SUMMARY | 2024-01-12 21:15 | XMS_ITS | Encounter Summary ---
Author [facility] [place] [address] Care Team Providers Care Instrumentation Designer Name Role Phone Lorna Bal APRN Primary Care Provider +1 -[phone] Encounter Details Date Type Department Care Team (Late st Contact Info) Description 09/08/2022 Tele[place] [address] Sergey Keane MD [facility] [place] [address] Social History Tobacco Use Types Packs/Day Years [...] moving forward. Patient was recently seen [place] [facility] [place]. I had the opportunity to speak with the attending physician Dr Patel on 09/03. At the time we discussed Mrs Cavazos clinical course and therapies provided here at [facility]. After our conversation she mentioned that [...] PM EST Office Visit [place] [address] Hollie Ambriz MD [facility] [place] [address] documented as of this encounter Visit Diagnoses Not on filedocumented in this encounter Care Teams Instrumentation Designer Relationship Specialty Start Date End Date Lorna Bal APRN [address] [place] [address] PCP - General Family Medicine 05/27/18 documented as of this encounter
--- OUTSIDE RECORDS SUMMARY | 2024-01-12 21:15 | XMS_ITS | Encounter Summary ---
Author Organization [facility] [place] [address] Care Team Providers Care Switch Box Installer Name Role Phone Lorna Bal APRN Primary Care Provider +1 -[phone] Encounter Details Date Type Department Care Team (Late st Contact Info) Description 09/26/2022 Telephone [place] [address] Valentina Stanton Social History Tobacco Use Types [...] caregiver Fernanda once we know at number [phone]. This was okay per pt Mom. documented in this encounter Plan of Treatment Upcoming Encounters Date Type Department Care Team (Late st Contact Info) Description 06/02/2024 12:30 PM EST Office [place] [address] Hollie Ambriz MD [facility] [place] [address] documented as of this encounter Visit Diagnoses Not on filedocumented in this encounter Care Teams Switch Box Installer Relationship Specialty Start Date End Date Lorna Bal APRN [address] [place] [address] PCP - General Family Medicine 05/27/18 documented as of this encounter
--- OUTSIDE RECORDS SUMMARY | 2024-01-12 21:15 | XMS_ITS | Encounter Summary ---
Author Organization [facility] [place] [address] Care Team Providers Care Machine Fitter Name Role Phone Lorna Bal APRN Primary Care Provider +1 -[phone] Encounter Details Date Type Department Care Team (Late st Contact Info) Description 09/24/2022 Telephone [place] [address] Sergey Keane MD [facility] [place] [address] Social History Tobacco Use Types Packs/Day Years Used Date Smoking Tobacco: Never Smokeless Tobacco: Never Comments:NO SMOKERS IN THE H OME Alcohol Use Standard Drinks/Week Comments No 0 (1 standard drink = 0.6 oz pur e alcohol) [facility] Inpatient Questions Answer Date Recorded [...] stable to go to her appt in [place] tomorrow with NSG to show them the lesions and see if they can do something about it. I discussed I had limited ability to assist and that a change of antibiotics without new cultures and drainage was not a great idea and the I would be happy to work with either IR here or NSG in [place] to assist. Discussed warning signs to present to the ED. I suspect she just has continued inflammation of the hardware and now that the drain is out it is reaccumulating. Likely will need a chronic drain or surgery. This will be up to NSG on [place]. * Telephone Encounter - Maryanne Sarabia RN [...] Tana has a neurosurgery appt tomorrow in [place]. Mom can be reached at [phone] until 5 pm. Then after 5 pm call Fannie Villarreal [phone]. Note forwarded to Dr. Gerber Dasilva and Dr. Sergey Doan. documented in this encounter Plan of Treatment Upcoming Encounters Date Type Department Care Team (Late st Contact Info) Description 06/02/2024 12:30 PM EST Office [place] [address] Hollie Ambriz MD [facility] [place] [address] documented as of this encounter Visit Diagnoses Not on filedocumented in this encounter Care Teams Machine Fitter Relationship Specialty Start Date End Date Lorna Bal APRN [address] [place] [address] PCP - General Family Medicine 05/27/18 documented as of this encounter
--- OUTSIDE RECORDS SUMMARY | 2024-01-12 21:15 | XMS_ITS | Encounter Summary ---
[place] [address] Care Team Providers Care Program Administrator Name Role Phone Lorna Bal APRN Primary Care Provider [phone] Encounter Details Date Type Department Care Team (Latest Contact Info) Description 08/11/2022 2:40 PM EDT Laboratory Appointment Lab [address] [phone] Spinal abscess; Bacteremia; E coli infection; Soft [...] PM EST Office Visit Infectious Disease at [facility] [place] [phone] Hollie Ambriz MD [facility] INFECTIOUS [place] [address] documented as of this encounter Procedures Procedure [...] 2:53 PM EDT) Neutrophil % 66.1 % [facility] Neutrophil Absolute 4.09 1.70 - 6.10 x10(3)/[facility] LABORATORY Lymph % 26.8 % [facility] H[facility]P PATI LABORATORY Lymphocytes Abs 1.7 0.9 - 3.2 x10(3)/[facility] LABORATORY Monocyte % 5.7 % [facility] HOSP ITAL LABORATORY Monocyte Abs 0.4 0.3 - 0.9 x10(3)/[facility] LABORATORY Eos % 1.1 % [facility] PATI LABORATORY Eosinophils Abs 0.1 0.0 - 0.4 x10(3)/[facility] LABORATORY Basophil % 0.3 % [facility] ITAL LABORATORY Baso Absolute 0.0 0.0 - 0.1 x10(3)/mcL [facility] Immature Gran % 0.00 % [facility] Comment: Immature granulocytes(IG's)percentage and absolute count will include metamyelocytes, myelocytes, and promyelocytes. Blood smears from CBCs yielding IG's will be scanned manually for concordance. If this scan disagrees with the automated IG or if promyelocytes are noted, a manual differential will be performed. Immature Gran Absolute 0.00 0.00 - 0.04 x10(3)/[facility] LABORATORY Blood 08/11/2022 2:53 PM EDT 08/11/2022 3:21 PM EDT Narrative Resulting Agency Comment Spec In Lab Jamaal Estrada MD HEMATOLOGY ORDERABL ES [facility] [place] [address] * (ABNORMAL) Hemogram (08/11/2022 2:53 PM EDT) White Blood Cell 6.2 4.0 - 9.5 x10(3)/mc L [facility] Red Blood Cell 4.81 4.00 - 5.21 x10(6)/mc L [facility] Hemoglobin 12.1 11.7 - 15.5 g/dL [facility] Hematocrit 37.4 35.7 - 45.8 % [facility] Mean Cell Volume 77.8(L) 82.6 - 94.4 fL [facility] Mean Cell Hemoglobin 25.2(L) 27.1 - 32.0 pg [facility] Mean Cell Hemoglobin Concentration 32.4 31.7 - 35.0 g/dL [facility] Platelet 387(H) 145 - 357 x10(3)/mc L [facility] RDW Standard Deviation 50.0(H) 37.0 - 46.0 fL [facility] RDW coefficient of variation 17.9(H) 11.5 - 14.1 % [facility] Mean Platelet Volume 9.6 7.6 - 12.9 fL [facility] NRBC% auto 0.0 % [facility] ITAL LABORAT[facility] NRBC Absolute 0.000 0.000 - 0.000 x10(3)/mc L [facility] Blood 08/11/2022 2:53 PM EDT 08/11/2022 3:21 PM EDT Narrative Resulting Agency Comment Spec In Lab Jamaal Estrada MD HEMATOLOGY ORDERABL ES [facility] [place] [address] * (ABNORMAL) Comprehensive metabolic panel (non-fasting) (08/11/2022 2:53 PM EDT) Glucose 75 65 - 199 mg/dL [facility] Comment:Diabetes: >=200 mg/d L plus symptoms Blood Urea Nitrogen 9 8 - 18 mg/dL [facility] Creatinine 0.25(L) 0.70 - 1.20 mg/dL [facility] Sodium 141 135 - 145 mmol/L [facility] Potassium 4.0 3.5 - 5.0 mmol/L [facility] Comment: Please note: ??Patients with WBC >100,000 may have falsely elevated Potassium levels. ??For accurate Potassium quantification in these patients send serum separator tube (gold top) for subsequent determinations. ??Contact the Clinical Chemistry Laboratory if there are any questions. Chloride 105 98 - 107 mmol/L [facility] Carbon Dioxide 24 22 - 31 mmol/L [facility] Anion Gap 12 5 - 15 mmol/L [facility] Calcium 9.4 8.5 - 10.5 mg/dL [facility] Protein, Total 8.0 6.1 - 8.0 g/dL [facility] Albumin 4.2 3.2 - 5.2 g/dL [facility] Aspartate Aminotransferase 19 0 - 30 unit/L [facility] Alanine Aminotransferase 26 0 - 30 unit/L [facility] Alkaline Phosphatase 211(H) 35 - 105 unit/L [facility] Bilirubin, Total <0.2(L) 0.2 - 1.3 mg/dL [facility] Est Glomerular Filtration Rate 154 >=60 mL/min/1. 73 m?? [facility] Comment: This patient's estimated GFR was [...] Address City/[facility]/ZIP Co de Phone Number [facility] [place] [address] * (ABNORMAL) CRP, acute inflammation (08/11/2022 2:53 PM EDT) C-Reactive Protein 45.8(H) <=4.9 mg/L [facility] Blood 08/11/2022 2:53 PM EDT 08/11/2022 3:21 PM EDT Narrative Resulting Agency Comment Spec In Lab Jamaal Estrada MD CHEMISTRY ORDERABLE S [facility] [place] [address] documented in this encounter Visit Diagnoses Diagnosis Spinal abscess Acute osteomyelitis, other specified site Bacteremia E coli infection Other and unspecified Escherichia coli (E. coli) Soft tissue abscess Cellulitis and abscess of other specified site Muscle abscess Other disorder of muscle, ligament, and fascia documented in this encounter Care Teams Program Administrator Relationship Specialty Start Date End Date Lorna Bal APRN [address] [place] [address] PCP - General Family Medicine 05/27/18 documented as of this encounter
--- OUTSIDE RECORDS SUMMARY | 2024-01-12 21:15 | XMS_ITS | Encounter Summary ---
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] PM EST Office [place] [address] Hollie Ambriz MD [facility] [place] [address] documented as of this encounter Visit Diagnoses Diagnosis Spinal abscess Acute osteomyelitis, other specified site 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
--- OUTSIDE RECORDS SUMMARY | 2024-01-12 21:16 | XMS_ITS | Encounter Summary ---
Author Organization [facility] Address [facility] [place] [address] Care Team Providers Care Uc Architect Name Role Phone Lorna Bal APRN Primary Care Provider [phone] Encounter Details Date Type Department Care Team (Late st Contact Info) Description 07/12/2022 [place] [phone] Ainsley Doyle MD [facility] [place] [address] Social History Tobacco Use Types Packs/Day Years [...] PM EST Office [place] [address] Hollie Ambriz MD [facility] [place] [address] documented as of this encounter Visit Diagnoses Not on filedocumented in this encounter Care Teams Uc Architect Relationship Specialty Start Date End Date Lorna Bal APRN [address] [place] [address] PCP - General Family Medicine 05/27/18 documented as of this encounter
--- OUTSIDE RECORDS SUMMARY | 2024-01-12 21:16 | XMS_ITS | Encounter Summary ---
[place] [address] Care Team Providers Care Watch Crystal Cutter Name Role Phone Lorna Bal APRN Primary Care Provider [phone] Reason for Referral * Diagnostic Test (Routine) - New Request Specialty Diagnoses / Procedures Referred By Contac t Referred To Contact Radiology Diagnoses Spinal abscess Procedures IR Drain Check/Change/Remove Lucho Burciaga MD [facility] [place] [address] [place] [address] Referral ID Status Reason Start Date Expiration Date Visits Requested Visits Authorized [id number] New Request Specialty Service Requested 07/24/2022 01/25/2024 1 1 Reason for Visit * Reason Comments Wound Check * Auth/Cert (Routine) Specialty Diagnoses / Procedures Referred By Contac t Referred To Contact Diagnoses Abscess Procedures EMERGENCY Eddi Samuel MD [facility] [place] [address] [facility] Referral ID Status Reason Start Date Expiration Date Visits Re quested Visits Authorized [id number] 1 1 Encounter Details Date Type Department Care Team (Latest Contact Info) Description 07/22/2022 5:43 PM EDT - 08/01/2022 5:12 PM EDT Hospital Encounter Medical Specialites Unit Level 1 [place] [id number] Alek Tavares MD [facility] [place] [address] Eddi Váz[place] [address] [place] [address] [place] [address] 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 Dx); QT prolongation; Abscess [...] Tana Cavazos Patient Age: 27 y.o. Language: Tamazight Race: White Ethnicity: Not nor Admit date: [...] please contact your inpatient physician through the [facility] Sales Route Driver . Issues afterhours and on weekends will [...] [Transparent Dressings] Itching and Dermatitis Please use [id number] ??? Penicillins Immunizations Given this Hospitalization: Immunization History Administered Date(s) Administered ??? Influenza Vaccine (Novel) [id number], Injectable 02/25/2009 ??? Influenza Vaccine w/Preservative, Split [...] her to stop it. She might require alf antibiotics to suppress infection. At some point [...] Center 08/07/2022 1:00 PM Lilli Joy APRN [facility] ID [id number] [facility] 08/11/2022 12:50 PM [facility] IR ROOM 6 IR [facility] Rad 08/13/2022 11:30 AM Sergey Keane MD [facility] ID [id number] [facility] Non-[facility] Follow-up Appointments: N/A Your Inpatient Doctor(s) at [facility]: ALEK TAVARES, ERNESTO MCCARTHY, EDDI BELL, JODY Kwong For questions regarding issues relating to your hospitalization on the Hospital Medicine Service, please contact your inpatient physician through the [facility] Sales Route Driver [phone]. Issues after hours and on weekends will be handled by the Hospitalist staff on-call. Your Primary Care Provider Lorna Bal APRN [phone] General Instructions INTERVENTIONAL RADIOLOGY DRAIN CARE INSTRUCTIONS [...] is during regular office hours, please call [phone]. If it is after regular office hours, or on weekends or holidays, please call [phone] and ask to speak to the Cyberathlete underground production foreperson for Interventional Radiology. XX You have received [...] PM Lilli Joy APRN Infectious Disease at [facility] Arrive at: Home [phone] Please do not come in for this visit. Your provider will call you at the number you provided. 08/11/2022 12:50 PM [facility] IR ROOM 6 Radiology at [facility] Arrive at: 3Z RADIOLOGY [phone] Please expect a call from a radiology nurse within 3 days of your exam, you will need to follow theinstructions given at that time. 08/13/2022 11:30 AM Sergey Keane MD Infectious Disease at [facility] Arrive at: Head Of Drama Area [phone] Future Orders Complete By Expires IR Drain Check/Change/Remove [[id number] Custom] 08/07/2022 (Approximate) 02/06/2023 Process Instructions: Scheduling Instructions: Comments: Questions: Where will study be performed?: [facility] Radiology Reason for exam and clinical history: [...] ?: No CT Lumbar Spine w Contrast [[id number] Custom] 08/08/2022 02/07/2023 Process Instructions: Scheduling Instructions: Questions: Clinical information / foster questions for radiologist: eval for interval changes in abscesses s/p drain placement Where will study be performed?: [facility] Radiology Is the patient ?: No Stat read required?: Does patient require sedation?: GA rationale: Date of injury if applicable: Recurring Lab Work Interval Expires CBC (with Diff) [[id number] Custom] Once a week until 08/02/2023 08/02/2023 Process Instructions: INCLUDES: WBC, RBC, Hgb, Hct, Platelets, RBC Indices and Differential Scheduling Instructions: Comments: Questions: Comprehensive metabolic panel (non-fasting) [[id number] Custom] Once a week until 08/02/2023 08/02/2023 Process Instructions: INCLUDES: Calcium, T Protein, Albumin, AST, ALT, Alk Phos, T Bili, BUN, Creat, GFR, Glucose, Lytes. Scheduling Instructions: Comments: Questions: CRP, acute inflammation [[id number] Custom] Once a week until 08/02/2023 08/02/2023 [...] is during regular office hours, please call [phone]. If it is after regular office hours, or on weekends or holidays, please call [phone] and ask to speak to the Cyberathlete underground production foreperson for Interventional Radiology. XX You have received [...] Center 08/07/2022 1:00 PM Lilli Joy APRN [facility] ID [id number] [facility] 08/11/2022 12:50 PM [facility] IR ROOM [address] [facility] Rad 08/13/2022 11:30 AM Sergey Keane MD [facility] ID [id number] [facility] Non-[facility] Follow-up Appointments: N/A Your Inpatient Doctor(s) at [facility]: ALEK TAVARES ABHIJIT S STEWART, EMILY A O'DOWD, EDDI BELL TIMOTHY R For questions regarding issues relating to your hospitalization on the Hospital Medicine Service, please contact your inpatient physician through the [facility] Sales Route Driver [phone]. Issues after hours and on weekends will be handled by the Hospitalist staff on-call. Your Primary Care Provider Lorna Bal, SATELLITE INSTALLATION TECHNICIAN [phone] documented in this encounter Medications at Time [...] Lundberg DO ID Fellow Green Team Pager: [phone] I examined the patient independently of Dr. [...] a hospital length of stay nutrition evaluation. Reinsurance Claim Analyst spoke with nursing d/tpt status. Per documentation patient has excellent PO intakes recorded at 75-100% over the past 4 days. According to dining services software they have ordered btwn 1608-3033kcals/day within the sameduration. Pt is eating great with caregiver assistance and is completing 75% of food received per RN. Reinsurance Claim Analyst unable to assess weight d/t only documentation [...] spent >30 minutes (Day of Discharge Code 22151) involved in the final examination of the patient, discussion of the hospital stay, instructions for continuing care to all relevant caregivers, and preparation of discharge records, prescriptions and referral forms. Plans ? Discharge to home ? Follow-up scheduled with infectious diseases, IR ? Please see the Discharge Summary for complete details of any medication changes and additional plans. Jody Collins MD [facility] Medicine * Yandy Masters RN - 08/01/2022 2:01 AM EDTSummary: Nursing OUTCOME EVALUATION NOTE: OUTCOME SUMMARY: Alert, non-verbal, hx of paraplegia, vss, 2a/L, no s+s of pain. Patient is resting comfortably in bed, Fannie (headwaitress) at bedside and attentive to patient, 2 [...] Lundberg, DO ID Fellow Green Team Pager: [phone] I examined the patient independently of Dr. [...] Spine Surgery - Department of Orthopaedic Surgery Transmission Line Engineer - Department of Orthopedic Surgery / Academics and Research Rental Representative Professor - [facility] 08/01/2022 * Jody Collins MD - [...] of two midnights or is on the [facility] inpatient only procedure list (status C) due to: monitoring of fluid status given an inability to regulate fluid balance and the need for administration or restriction of fluids Team Pager( Coverage 17/11): #[phone] PCP: Lorna Bal, SATELLITE INSTALLATION TECHNICIAN [phone] Jody Collins MD 07/31/2022 * Paige Gonzalez [...] ADLs]: Hands on Surveillance [continuous indirect monitoring]: [facility] Bed alarm Room near nurses' station Rounding [...] Lundberg, DO ID Fellow Green Team Pager: [phone] I interviewed and examined the patient independently [...] Identification Panel by PCR Refer to link [email or web address].Chunk [email or web address] for a complete list of organisms. Identification [...] drain x 2, oropeza, PIV Anticipated Disposition: alf care facility Code Status: Attempt Cardiopulmonary Resuscitation [...] of two midnights or is on the [facility] inpatient only procedure list (status C) due to: monitoring of fluid status given an inability to regulate fluid balance and the need for administration or restriction of fluids Team Pager(MD Coverage 17/11): #[phone] PCP: Lorna Bal, SATELLITE INSTALLATION TECHNICIAN [phone] Jody Collins MD 07/30/2022 * Shawn Woodard [...] attending, Dr. Vance Lundberg DO ID Fellow [place] Team Pager: [phone] I interviewed and examined the patient independently [...] Hospital Problems No resolved problems to display. [facility] Active Non-Hospital Problems Diagnosis ??? Spinal abscess [...] future testing is required, contact the Microbiology Adhesive Bonding Machine Operator. * No growth at 5 days. No [...] of two midnights or is on the [facility] inpatient only procedure list (status C) due to: monitoring of fluid status given an inability to regulate fluid balance and the need for administration or restriction of fluids Team Pager( Coverage 17/11): #[phone] PCP: Lorna Bal, SATELLITE INSTALLATION TECHNICIAN [phone] Jody Collins MD 07/29/2022 * Jody Collins [...] future testing is required, contact the Microbiology Adhesive Bonding Machine Operator. * No growth at 5 days. No [...] of two midnights or is on the [facility] inpatient only procedure list (status C) due to: monitoring of fluid status given an inability to regulate fluid balance and the need for administration or restriction of fluids Team Pager(MD Coverage 17/11): #[phone] PCP: Lorna Bal, SATELLITE INSTALLATION TECHNICIAN [phone] Jody Collins MD 07/28/2022 * Margy Mtz [...] future testing is required, contact the Microbiology Adhesive Bonding Machine Operator. * No growth at 5 days. No [...] drain x 2, oropeza, PIV Anticipated Disposition: alf care facility Code Status: Attempt Cardiopulmonary Resuscitation [...] of two midnights or is on the [facility] inpatient only procedure list (status C) due to: monitoring of fluid status given an inability to regulate fluid balance and the need for administration or restriction of fluids Team Pager( Coverage 17/11): #[phone] PCP: Lorna Bal, SATELLITE INSTALLATION TECHNICIAN [phone] Jody Collins MD 07/27/2022 * Citlali Mcdonald [...] future testing is required, contact the Microbiology Adhesive Bonding Machine Operator. * No growth at 5 days. No [...] drain x 2, oropeza, PIV Anticipated Disposition: alf care facility Code Status: Attempt Cardiopulmonary Resuscitation [...] of two midnights or is on the [facility] inpatient only procedure list (status C) due to: monitoring of fluid status given an inability to regulate fluid balance and the need for administration or restriction of fluids Team Pager(MD Coverage 17/11): #[phone] PCP: Lorna Bal, SATELLITE INSTALLATION TECHNICIAN [phone] Jody Collins MD 07/26/2022 * Citlali Mcdonald [...] the same area she presented returned to [facility] on 07/22, a repeated CT of the [...] Sergey Doan MD Infectious Disease Fellow Pager [phone] 07/25/22 (Attending addendum to follow) Associated attestation [...] future testing is required, contact the Microbiology Adhesive Bonding Machine Operator. * No growth at 5 days. No [...] of two midnights or is on the [facility] inpatient only procedure list (status C) due to: monitoring of fluid status given an inability to regulate fluid balance and the need for administration or restriction of fluids Team Pager( Coverage 17/11): #[phone] PCP: Lorna Bal, SATELLITE INSTALLATION TECHNICIAN [phone] Jody Collins MD 07/25/2022 * Anamika Todd [...] Todd PA-C Interventional Radiology IR Team Pager [phone] * Citlali Mcdonald RN - 07/25/2022 4:46 [...] of : 1995 AGE: 27 y.o. [address]: [address] [place] [address] Phone: [phone] (home) Mobile: Telephone Information: Referring Provider: Unknown [...] [Transparent Dressings] Itching and Dermatitis Please use [id number] ??? Penicillins Pertinent PMH: Patient Active Problem [...] minimumof two midnights or is on the [facility] inpatient only procedure list (status C) due to: monitoring of fluid status given an inability to regulate fluid balance and the need for administration or restriction of fluids Ernesto Willingham MD TEAM/PAGER:[phone] Subjective/24hr events: Says yes to most questions. [...] future testing is required, contact the Microbiology Adhesive Bonding Machine Operator. * No growth at 5 days. No [...] questions please contact the health health care consultant that requested your imaging first. Electronically signed by: Jamaal Villafuerte [facility] ([phone]), at 07/22/2022 8:03 PM Medications: Scheduled Meds: [...] facility - Family support: mother and her alf care providers - Code Status: Attempt Cardiopulmonary Resuscitation - Inpatient IPI Certification I certify that I am a D-H credentialed attending provider with admitting privileges and that the patient meets or has met medical necessity to require an inpatient IPI level of care meeting a minimumof two midnights or is on the [facility] inpatient only procedure list (status C) due to: monitoring of fluid status given an inability to regulate fluid balance and the need for administration or restriction of fluids Ernesto Willingham MD TEAM/PAGER:[phone] Subjective/24hr events: Says yes to most questions. [...] future testing is required, contact the Microbiology Adhesive Bonding Machine Operator. * No growth at 5 days. No [...] questions please contact the health health care consultant that requested your imaging first. Electronically signed by: Jamaal Villafuerte [facility] ([phone]), at 07/22/2022 8:03 PM Medications: Scheduled Meds: [...] All Drainage Procedures 06/25/2022 Mich Martino MD [facility] INTERVENTIONL RAD ??? IR ALL DRAINAGE PROCEDURES 07/04/2022 IR All Drainage Procedures 07/04/2022 Mich Martino MD [facility] INTERVENTIONL RAD ??? IR DRAIN CHECK/CHANGE/REMOVE 07/01/2022 IR Drain Check/Change/Remove 07/01/2022 Jamaal Jenkins, DO [facility] INTERVENTIONL RAD ??? PRO APPLY OF HIP CASTS, TWO LEGS 08/15/2010 CAST APPLICATION, HIP SPICA, BOTH LEGS performed by YAS OLIVER at [facility] OR ? ? PRO I&D, POST SPINE, LUMB/SACR/LUMBOSAC N/A 05/20/2014 @I & D, OPEN, DEEP ABSCESS, LUMBAR, SACRAL, LUMBOSACRAL performed by Freddy Isbell MD at [facility] MAIN OR ? ? PRO I&D, POST SPINE, LUMB/SACR/LUMBOSAC N/A 05/26/2014 @I & D, OPEN, DEEP ABSCESS, LUMBAR, SACRAL, LUMBOSACRAL performed by Freddy Isbell MD at [facility] OR ??? PRO IMPACT TOOTH REMOV COMP BONY N/A 06/14/2018 SURGICAL EXTRACTIONS, REMOVAL OF IMPACTED TOOTH, COMPLETELY BONY (WRVU 1.93) performed by Keith Cotton MD at [facility] OSC ??? PRO OSTEOTOMY FEMUR SHAFT/SUPRACONDY 08/15/2010 ??OSTEOTOMY, FEMUR SHAFT OR SUPRACONDYLAR W/O FIXATION performed by YAS OLIVER at [facility] OR ??? PRO RECONSTRUC HIP SOCKET, RESEC FEM HEAD 08/15/2010 ??ACETABULOPLASTY (GIRDLESTONE), RESECTION FEMORAL HEAD, BILATERAL performed by YAS OLIVER [facility] OR ??? PRO REMOVAL DEEP IMPLANT 08/15/2010 REMOVAL IMPLANT, DEEP, BRUNO performed by YAS OLIVER at [facility] OR ??? PRO REMOVAL ERUPTED TOOTH WITH ELEVATION OF MUCOPERIOSTEAL FLAP N/A 06/14/2018 SURGICAL EXTRACTIONS REQUIRING ELEVATION OF MUCOPERIOSTEAL FLAP AND REMOVAL OF BONE OR SECTION OF TOOTH (WRVU 1.09) performed by Keith Cotton MD at [facility] OSC ??? PRO REMOVE INFUSN DEVICE/PUMP N/A 05/11/2014 REMOVAL OF SPINE INFUSION PUMP performed by Jamaal Samuel MD at [facility] MAIN OR ??? PRO REMOVE SPINAL CANAL CATHETER N/A 05/11/2014 REMOVAL OF INTRATHECAL OR EPIDURAL CATHETER performed by Jamaal Samuel MD at [facility] MAIN OR ??? PRO REPR, DURAL/CSF LEAK, NOT REQ LAMINECTOMY N/A 05/20/2014 @REPAIR DURAL\CSF LEAK,NOT REQUIRING LAMINECTOMY performed by Freddy Isbell MD at [facility] MAIN OR Medications: No current facility-administered medications [...] All Drainage Procedures 06/25/2022 Mich Martino MD [facility] INTERVENTIONL RAD ??? IR ALL DRAINAGE PROCEDURES 07/04/2022 IR All Drainage Procedures 07/04/2022 Mich Martino MD [facility] INTERVENTIONL RAD ??? IR DRAIN CHECK/CHANGE/REMOVE 07/01/2022 IR Drain Check/Change/Remove 07/01/2022 Jamaal Jenkins, DO [facility] INTERVENTIONL RAD ??? PRO APPLY OF HIP [...] 1.93) performed by Keith Cotton MD at [facility] OSC ??? PRO OSTEOTOMY FEMUR SHAFT/SUPRACONDY 08/15/2010 ??OSTEOTOMY, FEMUR SHAFT OR SUPRACONDYLAR W/O FIXATION performed by YAS OLIVER at [facility] OR ??? PRO RECONSTRUC HIP SOCKET, RESEC FEM HEAD 08/15/2010 ??ACETABULOPLASTY (GIRDLESTONE), RESECTION FEMORAL HEAD, BILATERAL performed by YAS OLIVER [facility] OR ??? PRO REMOVAL DEEP IMPLANT 08/15/2010 REMOVAL IMPLANT, DEEP, BRUNO performed by YAS OLIVER at [facility] OR ??? PRO REMOVAL ERUPTED TOOTH WITH ELEVATION OF MUCOPERIOSTEAL FLAP N/A 06/14/2018 SURGICAL EXTRACTIONS REQUIRING ELEVATION OF MUCOPERIOSTEAL FLAP AND REMOVAL OF BONE OR SECTION OF TOOTH (WRVU 1.09) performed by Keith Cotton MD at [facility] OSC ??? PRO REMOVE INFUSN DEVICE/PUMP N/A [...] quadriplegia ID: 27 y.o. Female presents to [facility] with increased drainage from prior lumbar subcutaneous [...] All Drainage Procedures 06/25/2022 Mich Martino MD [facility] INTERVENTIONL RAD ??? IR ALL DRAINAGE PROCEDURES 07/04/2022 IR All Drainage Procedures 07/04/2022 Mich Martino MD [facility] INTERVENTIONL RAD ??? IR DRAIN CHECK/CHANGE/REMOVE 07/01/2022 IR Drain Check/Change/Remove 07/01/2022 Jamaal Jenkins, DO [facility] INTERVENTIONL RAD ??? PRO APPLY OF HIP CASTS, TWO LEGS 08/15/2010 CAST APPLICATION, HIP SPICA, BOTH LEGS performed by YAS OLIVER at [facility] MAIN OR ? ? PRO I&D, POST [...] 1.93) performed by Keith Cotton MD at [facility] OSC ??? PRO OSTEOTOMY FEMUR SHAFT/SUPRACONDY 08/15/2010 ??OSTEOTOMY, FEMUR SHAFT OR SUPRACONDYLAR W/O FIXATION performed by YAS OLIVER at [facility] OR ??? PRO RECONSTRUC HIP SOCKET, RESEC FEM HEAD 08/15/2010 ??ACETABULOPLASTY (GIRDLESTONE), RESECTION FEMORAL HEAD, BILATERAL performed by YAS OLIVER [facility] OR ??? PRO REMOVAL DEEP IMPLANT 08/15/2010 REMOVAL IMPLANT, DEEP, BRUNO performed by YAS OLIVER at [facility] OR ??? PRO REMOVAL ERUPTED TOOTH WITH ELEVATION OF MUCOPERIOSTEAL FLAP N/A 06/14/2018 SURGICAL EXTRACTIONS REQUIRING ELEVATION OF MUCOPERIOSTEAL FLAP AND REMOVAL OF BONE OR SECTION OF TOOTH (WRVU 1.09) performed by Kieth Cotton MD at [facility] OSC ??? PRO REMOVE INFUSN DEVICE/PUMP N/A [...] [Transparent Dressings] Itching and Dermatitis Please use [id number] ??? Penicillins Family History: Family History Problem [...] Administered Date(s) Administered ??? Influenza Vaccine (Novel) [id number], Injectable 02/25/2009 ??? Influenza Vaccine w/Preservative, Split [...] external catheter placed. Will continue to monitor. Pharmacy Clinical Coordinator at bedside. * Samuel Comer MD - [...] questions please contact the health health care consultant that requested your imaging first. Electronically signed by: Jamaal Villafuerte [facility] ([phone]), at 07/22/2022 8:03 PM Recent Results (from [...] cell count. Samuel Comer MD 07/22/22 Samuel Coemr MD Resident 07/22/22 [id number] Associated attestation - Alek Tavares MD - [...] separate note. Brief Summary: History obtained from headwaitress 27 y.o. female with history of traumatic [...] with plan. Yas John RN, BSN, LALA Backside Grinder Pager [phone] * Plan of Care - Jimbo Willams [...] Name: Anderson Thorpe Decision Maker Contact Information: [phone] (M) Proxy Activated: Yes Functional status prior [...] Discharge: 08/01/2022 Yas John RN, BSN, LALA Backside Grinder Pager [phone] * Plan of Care - Guerita Quinonez [...] for sensory deficits provided, if applicable: yes. caregiver assisted living present * Plan of Care - Tasha [...] Masimo, bed alarm in use, purposeful rounding, career orientation teacher at bed side. * Care Management - [...] Name: Anderson Thorpe Decision Maker Contact Information: [phone] (M) Proxy Activated: Yes Functional status prior [...] Discharge: 07/29/2022 Yas John RN, BSN, LALA Backside Grinder Pager [phone] * Plan of Care - Maren Barnard [...] for sensory deficits provided, if applicable: yes. caregiver assisted living present * Plan of Care - Osman [...] [address] Appointed Guardian(s) Contact Information: [phone] (H) [phone] (M) Proxy Activated: Yes Guardianship paperwork on [...] device, hospital bed Home Address listed as: [address] [place] [id number] Social & Family Supports: All names listed below confirmed with patient as current and correct Extended Emergency Contact Information Primary Emergency Contact: Anderson Thorpe [facility] Mobile Relation: Mother Secondary Emergency Contact: Curt Philippe [facility] Mobile Relation: Step parent Current Care [...] N/A ; Prescription Coverage: Yes Preferred Pharmacy: [facility] [address] [place] [address] [facility] [address] [place] [id number] [facility] - [place], [place] - [address] [facility] [address] [facility] [address] [facility] [address] - [place], [place] - [address] [facility] [address] [facility] [address] [place] Status: Patient is a : No Primary Care Provider listed: Lorna Bal APRN [phone] Patient/Caregiver Goals of Treatment: return home with [...] care planning. Yas John RN, BSN, LALA Backside Grinder Pager [phone] * Plan of Care - Osman Bowen RN - 07/24/2022 6:26 PM EDT OUTCOME EVALUATION NOTE: OUTCOME SUMMARY: Patient brightens with approach, on room air, career orientation teacher at bedside, IR placed 2 carmella drains [...] included. DEPARTMENT OF INFECTIOUS DISEASE & INTERNATIONAL [facility] INFECTIOUS DISEASE CONSULT NOTE Patient Name: Tana Cavazos PCP: Lorna Bal APRN PCP phone #: [phone] Reason for Admission: Lumbar subcutaneous abscesses with [...] to the ED today. Upon arrival to [facility] she was found afebrile, hemodynamically stable. Normal [...] the same area she presented returned to [facility] on 07/22, a repeated CT of the [...] following additions/modifications: Patient was recently admitted to [facility] in early June 2022, at which point [...] of purulent material. She was re-admitted to [facility] on 07/22 for ongoing management, at which [...] on the date of service on the [id number] encounter, chart review, clinical decision making, documentation, [...] Discuss with Dr. Christy Menchaca MD Pager: #[phone] 07/23/22 12:31 PM Future Appointments Date Time Provider Department Center 07/31/2022 1:00 PM Lilli Joy APRN [facility] ID [id number] [facility] 08/13/2022 11:30 AM Sergey Keane MD [facility] ID [id number] [facility] Associated attestation - Joe Harrison MD - 07/25/2022 12:47 PM EDT Recommend IR drainage. Try to avoid surgery. However, may need debridement and VAC placement. Joe Harrison MD [facility] - Department of Orthopaedic Surgery Transmission Line Engineer - Department of Orthopedic Surgery / Academics and Research Rental Representative Professor - [facility] [place] 07/25/2022 * Consult Note - Oriana Rondon RP - 07/23/2022 1:09 AM EDT TelePharmacy Home Medication List Update for Medication Reconciliation 07/23/22 1:09 AM Tana Cavazos 1995 Allergies Allergen Reactions ??? Fluoxetine Other (See Comments) HIVES, HEART RACES ??? Tegaderm [Transparent Dressings] Itching and Dermatitis Please use [id number] ??? Penicillins ??? Person Interviewed: adult headwaitress ??? Quality of Interview/accuracy of medication list: [...] list with information provided by patients adult headwaitress, Fannie Villarreal. Fannie reports also using Interdry [...] PM EST Office [place] [address] Hollie Ambriz MD [facility] [place] [address] documented as of this encounter Procedures Procedure [...] 5:47 AM EDT) Neutrophil % 48.3 % [facility] Neutrophil Absolute 2.57 1.70 - 6.10 x10(3)/[facility] Lymph % 42.1 % [facility] Lymphocytes Abs 2.2 0.9 - 3.2 x10(3)/[facility] Monocyte % 6.4 % [facility] Monocyte Abs 0.3 0.3 - 0.9 x10(3)/[facility] Eos % 2.6 % [facility] Eosinophils Abs 0.1 0.0 - 0.4 x10(3)/[facility] Basophil % 0.4 % [facility] Baso Absolute 0.0 0.0 - 0.1 x10(3)/[facility] Immature Gran % 0.20 % [facility] Comment: Immature granulocytes(IG's)percentage and absolute count will include metamyelocytes, myelocytes, and promyelocytes. Blood smears from CBCs yielding IG's will be scanned manually for concordance. If this scan disagrees with the automated IG or if promyelocytes are noted, a manual differential will be performed. Immature Gran Absolute 0.01 0.00 - 0.04 x10(3)/[facility] Blood 08/01/2022 5:47 AM EDT 08/01/2022 6:03 AM EDT Narrative Resulting Agency Comment Spec In Lab Jody Collins MD [place] [address] * (ABNORMAL) Hemogram (08/01/2022 5:47 AM EDT) White Blood Cell 5.3 4.0 - 9.5 x10(3)/mc L [facility] Red Blood Cell 3.99(L) 4.00 - 5.21 x10(6)/mc L [facility] Hemoglobin 9.9(L) 11.7 - 15.5 g/dL [facility] Hematocrit 32.2(L) 35.7 - 45.8 % [facility] Mean Cell Volume 80.7(L) 82.6 - 94.4 fL [facility] Mean Cell Hemoglobin 24.8(L) 27.1 - 32.0 pg [facility] Mean Cell Hemoglobin Concentration 30.7(L) 31.7 - 35.0 g/dL [facility] Platelet 329 145 - 357 x10(3)/mc L [facility] RDW Standard Deviation 53.1(H) 37.0 - 46.0 fL [facility] RDW coefficient of variation 18.1(H) 11.5 - 14.1 % [facility] Mean Platelet Volume 9.3 7.6 - 12.9 fL [facility] NRBC% auto 0.0 % [facility] NRBC Absolute 0.000 0.000 - 0.000 x10(3)/mc L [facility] Blood 08/01/2022 5:47 AM EDT 08/01/2022 6:03 AM EDT Narrative Resulting Agency Comment Spec In Lab Jody Collins [place] [address] * Blood culture (07/31/2022 1:09 PM EDT) Blood Culture No growth at 5 days. [facility] Blood STRUCTURE OF LEFT HAND / Unknown 07/31/2022 1:09 PM EDT 07/31/2022 2:09 PM EDT Comment:#2 Narrative Resulting Agency Comment Spec In Lab Jody Collins MD MICROBIOLOGY - BLOOD ORDERABLES Performing Organization Address City/[facility]/ZIP Co de Phone Number [facility] [place] [address] * Blood culture (07/31/2022 1:04 PM EDT) Blood Culture No growth at 5 days. [facility] Blood STRUCTURE OF RIGHT HAND / Unknown 07/31/2022 1:04 PM EDT 07/31/2022 2:09 PM EDT Comment:#1 Narrative Resulting Agency Comment Spec In Lab Jody Collins MD MICROBIOLOGY - BLOOD ORDERABLES Performing Organization Address [facility] Co de Phone Number [facility] [place] [address] * Differential, Automated (07/31/2022 4:53 AM EDT) Neutrophil % 42.0 % [facility] Neutrophil Absolute 2.02 1.70 - 6.10 x10(3)/[facility] Lymph % 47.6 % [facility] Lymphocytes Abs 2.3 0.9 - 3.2 x10(3)/[facility] Monocyte % 7.3 % [facility] Monocyte Abs 0.4 0.3 - 0.9 x10(3)/[facility] Eos % 2.5 % [facility] Eosinophils Abs 0.1 0.0 - 0.4 x10(3)/[facility] Basophil % 0.4 % [facility] Baso Absolute 0.0 0.0 - 0.1 x10(3)/[facility] Immature Gran % 0.20 % [facility] Comment: Immature granulocytes(IG's)percentage and absolute count will include metamyelocytes, myelocytes, and promyelocytes. Blood smears from CBCs yielding IG's will be scanned manually for concordance. If this scan disagrees with the automated IG or if promyelocytes are noted, a manual differential will be performed. Immature Gran Absolute 0.01 0.00 - 0.04 x10(3)/[facility] Blood 07/31/2022 4:53 AM EDT 07/31/2022 5:07 AM EDT Narrative Resulting Agency Comment Spec In Lab Jody Collins MD HEMATOLOGY ORDERABLE S Performing Organization Address City/[facility]/ZIP Co de Phone Number [facility] [place] [address] * (ABNORMAL) Hemogram (07/31/2022 4:53 AM EDT) White Blood Cell 4.8 4.0 - 9.5 x10(3)/mc L [facility] Red Blood Cell 4.16 4.00 - 5.21 x10(6)/mc L [facility] Hemoglobin 10.3(L) 11.7 - 15.5 g/dL [facility] Hematocrit 33.3(L) 35.7 - 45.8 % [facility] Mean Cell Volume 80.0(L) 82.6 - 94.4 fL [facility] Mean Cell Hemoglobin 24.8(L) 27.1 - 32.0 pg [facility] Mean Cell Hemoglobin Concentration 30.9(L) 31.7 - 35.0 g/dL [facility] Platelet 302 145 - 357 x10(3)/mc L [facility] RDW Standard Deviation 53.7(H) 37.0 - 46.0 fL [facility] RDW coefficient of variation 18.5(H) 11.5 - 14.1 % [facility] Mean Platelet Volume 9.2 7.6 - 12.9 fL [facility] NRBC% auto 0.0 % [facility] NRBC Absolute 0.000 0.000 - 0.000 x10(3)/mc L [facility] Blood 07/31/2022 4:53 AM EDT 07/31/2022 5:07 AM EDT Narrative Resulting Agency Comment Spec In Lab Jody Collins MD HEMATOLOGY ORDERABLE S Performing Organization Address City/[facility]/ZIP Co de Phone Number [facility] [place] [address] * (ABNORMAL) CRP, acute inflammation (07/31/2022 4:53 AM EDT) C-Reactive Protein 28.8(H) <=4.9 mg/L [facility] Comment:result rechecked-KS Blood 07/31/2022 4:53 AM EDT 07/31/2022 5:07 AM EDT Narrative Resulting Agency Comment Spec In Lab Jody Collins MD CHEMISTRY ORDERABLES [facility] [place] [address] * (ABNORMAL) Basic Metabolic Panel (non-fasting) (07/31/2022 4:53 AM EDT) Glucose 88 65 - 199 mg/dL [facility] Comment:Diabetes: >=200 mg/d L plus symptoms Blood Urea Nitrogen 11 8 - 18 mg/dL [facility] Comment:result rechecked-KS Creatinine 0.29(L) 0.70 - 1.20 mg/dL [facility] Sodium 138 135 - 145 mmol/L [facility] Potassium 3.9 3.5 - 5.0 mmol/L [facility] Comment: Please note: ??Patients with WBC >100,000 may have falsely elevated Potassium levels. ??For accurate Potassium quantification in these patients send serum separator tube (gold top) for subsequent determinations. ??Contact the Clinical Chemistry Laboratory if there are any questions. Chloride 103 98 - 107 mmol/L [facility] Carbon Dioxide 24 22 - 31 mmol/L [facility] Anion Gap 11 5 - 15 mmol/L [facility] Calcium 9.3 8.5 - 10.5 mg/dL [facility] Est Glomerular Filtration Rate 148 >=60 mL/min/1. 73 m?? [facility] Comment: This patient's estimated GFR [...] In Lab Jody Collins MD CHEMISTRY ORDERABLES [facility] [place] [address] * Differential, Automated (07/30/2022 5:14 AM EDT) Neutrophil % 44.1 % [facility] Neutrophil Absolute 1.79 1.70 - 6.10 x10(3)/[facility] Lymph % 42.9 % [facility] Lymphocytes Abs 1.7 0.9 - 3.2 x10(3)/[facility] Monocyte % 9.1 % [facility] Monocyte Abs 0.4 0.3 - 0.9 x10(3)/[facility] Eos % 3.2 % [facility] Eosinophils Abs 0.1 0.0 - 0.4 x10(3)/[facility] Basophil % 0.5 % [facility] Baso Absolute 0.0 0.0 - 0.1 x10(3)/[facility] Immature Gran % 0.20 % [facility] Comment: Immature granulocytes(IG's)percentage and absolute count will include metamyelocytes, myelocytes, and promyelocytes. Blood smears from CBCs yielding IG's will be scanned manually for concordance. If this scan disagrees with the automated IG or if promyelocytes are noted, a manual differential will be performed. Immature Gran Absolute 0.01 0.00 - 0.04 x10(3)/[facility] Blood 07/30/2022 5:14 AM EDT 07/30/2022 5:38 AM EDT Narrative Resulting Agency Comment Spec In Lab Jody Collins MD HEMATOLOGY ORDERABLE S [facility] [place] [address] * (ABNORMAL) Hemogram (07/30/2022 5:14 AM EDT) White Blood Cell 4.1 4.0 - 9.5 x10(3)/ L [facility] Red Blood Cell 4.02 4.00 - 5.21 x10(6)/mc L [facility] Hemoglobin 9.9(L) 11.7 - 15.5 g/dL [facility] Hematocrit 31.7(L) 35.7 - 45.8 % [facility] Mean Cell Volume 78.9(L) 82.6 - 94.4 fL [facility] Mean Cell Hemoglobin 24.6(L) 27.1 - 32.0 pg [facility] Mean Cell Hemoglobin Concentration 31.2(L) 31.7 - 35.0 g/dL [facility] Platelet 305 145 - 357 x10(3)/mc L [facility] RDW Standard Deviation 53.1(H) 37.0 - 46.0 fL [facility] RDW coefficient of variation 18.5(H) 11.5 - 14.1 % [facility] Mean Platelet Volume 9.6 7.6 - 12.9 fL [facility] NRBC% auto 0.0 % [facility] NRBC Absolute 0.000 0.000 - 0.000 x10(3)/ L [facility] Blood 07/30/2022 5:14 AM EDT 07/30/2022 5:38 AM EDT Narrative Resulting Agency Comment Spec In Lab Jody Collins MD HEMATOLOGY ORDERABLE S [facility] [place] [address] * Blood culture (07/30/2022 5:14 AM EDT) Blood Culture No growth at 5 days. [facility] Blood STRUCTURE OF LEFT HAND / Unknown 07/30/2022 5:14 AM EDT 07/30/2022 6:38 AM EDT Narrative Resulting Agency Comment Spec In Lab Yury Saavedra MD MICROBIOLOGY - BLOO D ORDERABLES Performing Organization Address City/[facility]/ZIP Co de Phone Number [facility] [place] [address] * Phosphorus (07/28/2022 11:27 PM EDT) Pathologist [facility] Phosphorus 4.2 2.5 - 4.5 mg/dL [facility] Blood Venous Draw / Unknown 07/28/2022 11:27 PM EDT 07/28/2022 11:44 PM EDT Narrative Resulting Agency Comment Spec In Lab Shea Fox MD CHEMISTRY ORDERABLES Performing Organization Address [facility] Co de Phone Number [facility] [place] [address] * Magnesium (07/28/2022 11:27 PM EDT) Pathologist [facility] Magnesium 0.73 0.69 - 1.07 mmol/L [facility] Blood Venous Draw / Unknown 07/28/2022 11:27 PM EDT 07/28/2022 11:44 PM EDT Narrative Resulting Agency Comment Spec In Lab Shea Fox MD CHEMISTRY ORDERABLES Performing Organization Address [facility] Co de Phone Number [facility] [place] [address] * Differential, Automated (07/28/2022 11:27 PM EDT) Neutrophil % 51.2 % [facility] Neutrophil Absolute 2.52 1.70 - 6.10 x10(3)/[facility] Lymph % 37.3 % [facility] Lymphocytes Abs 1.8 0.9 - 3.2 x10(3)/[facility] Monocyte % 9.1 % [facility] Monocyte Abs 0.4 0.3 - 0.9 x10(3)/[facility] Eos % 1.4 % [facility] Eosinophils Abs 0.1 0.0 - 0.4 x10(3)/[facility] Basophil % 0.6 % [facility] Baso Absolute 0.0 0.0 - 0.1 x10(3)/[facility] Immature Gran % 0.40 % [facility] Comment: Immature granulocytes(IG's)percentage and absolute count will include metamyelocytes, myelocytes, and promyelocytes. Blood smears from CBCs yielding IG's will be scanned manually for concordance. If this scan disagrees with the automated IG or if promyelocytes are noted, a manual differential will be performed. Immature Gran Absolute 0.02 0.00 - 0.04 x10(3)/[facility] Blood 07/28/2022 11:2 7 PM EDT 07/28/2022 11:34 PM EDT Narrative Resulting Agency Comment Spec In Lab Shea Fox MD HEMATOLOGY ORDERABLE S Performing Organization Address City/State/[facility] Co de Phone Number [facility] [place] [address] * (ABNORMAL) Hemogram (07/28/2022 11:27 PM EDT) White Blood Cell 4.9 4.0 - 9.5 x10(3)/[facility] Red Blood Cell 4.06 4.00 - 5.21 x10(6)/[facility] Hemoglobin 10.0(L) 11.7 - 15.5 g/dL [facility] Hematocrit 32.3(L) 35.7 - 45.8 % [facility] Mean Cell Volume 79.6(L) 82.6 - 94.4 fL [facility] Mean Cell Hemoglobin 24.6(L) 27.1 - 32.0 pg [facility] Mean Cell Hemoglobin Concentration 31.0(L) 31.7 - 35.0 g/dL [facility] Platelet 303 145 - 357 x10(3)/[facility] RDW Standard Deviation 53.3(H) 37.0 - 46.0 fL [facility] RDW coefficient of variation 18.5(H) 11.5 - 14.1 % [facility] Mean Platelet Volume 9.2 7.6 - 12.9 fL [facility] NRBC% auto 0.0 % [facility] NRBC Absolute 0.000 0.000 - 0.000 x10(3)/mc L [facility] Blood 07/28/2022 11:2 7 PM EDT 07/28/2022 11:34 PM EDT Narrative Resulting Agency Comment Spec In Lab Shea Fox MD HEMATOLOGY ORDERABLE S [facility] [address] [place] [address] * (ABNORMAL) Blood culture (07/28/2022 11:27 PM EDT) Blood Culture Pseudomonas oryzihabitans isolated Isolate saved. If future testing is required, contact the Microbiology Adhesive Bonding Machine Operator. (A) [facility] Gram Stain Aerobic Growth detected in aerobic bottle. Gram Negative Rods seen Results called to and read back by Guerita Quinonez RN ??07/30/22 02:02:27 (A) [facility] Organism Pseudomonas oryzihabitans(A) [facility] Organism Gram Negative Rods(A) [facility] Blood 07/28/2022 11:2 7 PM [...] MICROBIOLOGY - BLOOD ORDERABLES Performing Organization Address City/[facility] Co de Phone Number [facility] [place] [address] * Lactate, whole blood, send to lab ([facility] (07/28/2022 11:27 PM EDT) Lactate WB 1.7 0.5 - 2.2 mmol/L [facility] Blood 07/28/2022 11:2 7 PM EDT 07/28/2022 11:33 PM EDT Narrative Resulting Agency Comment Spec In Lab Shea Fox MD CHEMISTRY ORDERABLES Performing Organization Address [facility] Co de Phone Number [facility] [place] [address] * Lipase (07/28/2022 11:27 PM EDT) Lipase 29 0 - 60 unit/L [facility] Blood 07/28/2022 11:2 7 PM EDT 07/28/2022 11:34 PM EDT Narrative Resulting Agency Comment Spec In Lab Shea Fox MD CHEMISTRY ORDERABLES Performing Organization Address [facility] Co de Phone Number [facility] [place] [address] * (ABNORMAL) Comprehensive metabolic panel (non-fasting) (07/28/2022 11:27 PM EDT) Glucose 98 65 - 199 mg/dL [facility] Comment:Diabetes: >=200 mg/d L plus symptoms Blood Urea Nitrogen 7(L) 8 - 18 mg/dL [facility] Creatinine 0.30(L) 0.70 - 1.20 mg/dL [facility] Sodium 138 135 - 145 mmol/L [facility] Potassium 3.9 3.5 - 5.0 mmol/L [facility] Comment: Please note: ??Patients with WBC >100,000 may have falsely elevated Potassium levels. ??For accurate Potassium quantification in these patients send serum separator tube (gold top) for subsequent determinations. ??Contact the Clinical Chemistry Laboratory if there are any questions. Chloride 102 98 - 107 mmol/L [facility] Carbon Dioxide 25 22 - 31 mmol/L [facility] Anion Gap 11 5 - 15 mmol/L [facility] Calcium 9.2 8.5 - 10.5 mg/dL [facility] Protein, Total 7.3 6.1 - 8.0 g/dL [facility] Albumin 3.6 3.2 - 5.2 g/dL [facility] Aspartate Aminotransferase 35(H) 0 - 30 unit/L [facility] Alanine Aminotransferase 42(H) 0 - 30 unit/L [facility] Alkaline Phosphatase 182(H) 35 - 105 unit/L [facility] Bilirubin, Total 0.2 0.2 - 1.3 mg/dL [facility] Est Glomerular Filtration Rate 147 >=60 mL/min/1. 73 m?? [facility] Comment: This patient's estimated GFR [...] In Lab Shea Fox MD CHEMISTRY ORDERABLES [facility] [place] [address] * (ABNORMAL) CRP, acute inflammation (07/28/2022 11:27 PM EDT) C-Reactive Protein 51.5(H) <=4.9 mg/L [facility] Blood 07/28/2022 11:2 7 PM EDT 07/28/2022 11:44 PM EDT Narrative Resulting Agency Comment Spec In Lab Jody Collins MD CHEMISTRY ORDERABLES Performing Organization Address [facility] Co de Phone Number [facility] [place] [address] * Urinalysis with reflex Culture (07/28/2022 11:20 PM EDT) Glucose, Urine Dipstick Negative Negative mg/dL [facility] Protein, Urine Dipstick Negative Negative mg/dL [facility] Bilirubin, Urine Dipstick Negative Negative mg/dL [facility] Comment: Clinical correlation required for positive Urine Bilirubin results as false positive may occur with some drugs and drug related products. If a false positive is suspected a serum total bilirubin should be considered if clinically indicated. Urobilinogen, Urine Dipstick Normal Normal mg/dL [facility] pH, Urn (dipstick) 7.5 5.0 - 8.0 [facility] Blood, Urine Dipstick Negative Negative mg/dL [facility] Ketone, Urine Dipstick Negative Negative mg/dL [facility] Nitrite, Urine Dipstick Negative Negative [facility] Leukocytes, Urine Dipstick Negative Negative mcL [facility] Appearance, Urine Dipstick Clear Clear [facility] Specific [place] Urine Automated 1.013 1.005 - 1.030 [facility] Color, Urine Dipstick Yellow Yellow [facility] Reflex to Culture No [facility] Straight Catheter Urine 07/28/2022 11:20 PM EDT 07/29/2022 12:04 AM EDT Narrative Resulting Agency Comment Spec In Lab Shea Fox MD URINE ORDERABLES Performing Organization Address City/[facility]/ZIP Co de Phone Number [facility] [place] [address] * Blood culture (07/28/2022 11:11 PM EDT) Blood Culture No growth at 5 days. [facility] Blood 07/28/2022 11:1 1 PM EDT 07/29/2022 12:17 AM EDT Comment:R hand Narrative Resulting Agency Comment Spec In Lab Shea Fox MD MICROBIOLOGY - BLOOD ORDERABLES [facility] [place] [address] * XR Chest One View (07/28/2022 8:11 [...] questions please contact the health health care consultant that requested your imaging first. ? Electronically signed by: FAINA GALLEGO MD, [facility] ??([phone]), at 07/28/2022 8:32 PM Narrative 07/28/2022 8:32 [...] have questions please contactthe health health care consultant that requested your imaging first. Electronically signed by: FAINA GALLEGO MD, [facility]([phone]), at 07/28/2022 8:32 PM Jody Collins MD IMG DX ORDERABLES * (ABNORMAL) Respiratory Panel PCR (07/28/2022 8:01 PM EDT) Respiratory Panel Source PROVIDER NETWORK ANALYST Swab [facility] Respiratory Panel PCR Positive(A) Negative [facility] Comment: Respiratory Panels are performed on the KVK TEAM, using multiplexed PCR nucleic acid detection. ??Negative results do not preclude respiratory infection and should not be used as the sole basis for diagnosis, treatment or other management decisions. Adenovirus Not Detected Not Detected [facility] Coronavirus HKU1 Not Detected Not Detected [facility] Coronavirus NL63 Not Detected Not Detected [facility] Coronavirus 229E Not Detected Not Detected [facility] Coronavirus OC43 Not Detected Not Detected [facility] SARS-CoV-2 Not Detected Not Detected [facility] Comment: Testing for SARS-CoV-2 (Severe acute respiratory syndrome coronavirus 2) to aid in the diagnosis of COVID-19 is performed using the [employer] Respiratory Panel 2.1 (PrintToPeer) as authorized by the FDA issued Emergency Use Authorization (EUA). This panel also tests for multiple other viral and bacterial pathogens. This assay is intended for In-vitro Diagnostic (IVD) use with nasopharyngeal swabs in viral transport media. The assay is performed based on the instructions for use and additional guidance provided by the FDA. Testing is performed in laboratories within the [facility], each of which is certified under [...] fact sheets at the following FDA website: https://www.fda.gov/medical-devices/eijysbnphsr-jxztmme-5209-wufcq-23-pblvgqnwm- use-a adfyousicdmut-fdeaggx-pvusxpa/mhvpy-exjzoofjpjj-edtb Human Metapneumovirus Not Detected Not Detected [facility] Human Rhinovirus/Enterov irus Detected(A) Not Detected [facility] Influenza A Not Detected Not Detected [facility] Influenza B Not Detected Not Detected [facility] Parainfluenza 1 Not Detected Not Detected [facility] Parainfluenza 2 Not Detected Not Detected [facility] Parainfluenza 3 Not Detected Not Detected [facility] Parainfluenza 4 Not Detected Not Detected [facility] Respiratory Syncytial Virus Not Detected Not Detected [facility] Chlamydophila pneumoniae Not Detected Not Detected [facility] Mycoplasma pneumoniae Not Detected Not Detected [facility] Nasopharyngeal Swab Other / Unknown 07/28 8:01 PM EDT 07/28/2022 8:29 PM EDT Comment:Symptoms->Fever / Re spiratory Symptoms Narrative Resulting Agency Comment Spec In Lab Shea Fox MD MICROBIOLOGY - [facility] AL ORDERABLES [facility] [place] [address] * COVID-19 PCR (07/28/2022 8:01 PM EDT) SARS-CoV-2 RNA (Rapid) Not Detected Not Detected [facility] Comment: This result should be [...] using the Simplexa COVID-19 Direct Assay by [employer] as authorized by the FDA issued Emergency [...] Department of Pathology and Laboratory Medicine at [facility], certified under the Clinical Laboratory Improvement Amendments [...] fact sheets at the following FDA website: https://www.fda.gov/medical-devices/wkzknmmtkbv-renuwld-8811-oytwo-55-pxtrqtdkl- use-a jfkjstkpyoztd-zqezivq-bbytdlp/kofug-dxmpwplspzb-gcxt SARS-CoV-2 Source PROVIDER NETWORK ANALYST Swab [facility] Nasopharyngeal Swab 07/29/19 8:01 PM EDT 07/28/2022 8:29 PM EDT Comment:Symptoms->Fever / Re spiratory Symptoms Narrative Resulting Agency Comment Spec In Lab Jody Collins MD MICROBIOLOGY - GENER AL ORDERABLES Performing Organization Address City/State/[facility] Co de Phone Number [facility] [place] [address] * CT Lumbar Spine w Contrast (07/28/2022 [...] questions please contact the health health care consultant that requested your imaging first. ? Narrative [...] have questions please contactthe health health care consultant that requested your imaging first. Jody Collins MD IMG CT ORDERABLES * Differential, Automated (07/28/2022 5:02 AM EDT) Neutrophil % 52.9 % [facility] Neutrophil Absolute 2.31 1.70 - 6.10 x10(3)/[facility] Lymph % 34.3 % [facility] Lymphocytes Abs 1.5 0.9 - 3.2 x10(3)/[facility] Monocyte % 11.2 % [facility] Monocyte Abs 0.5 0.3 - 0.9 x10(3)/[facility] Eos % 1.1 % [facility] Eosinophils Abs 0.0 0.0 - 0.4 x10(3)/[facility] Basophil % 0.5 % [facility] Baso Absolute 0.0 0.0 - 0.1 x10(3)/[facility] Immature Gran % 0.00 % [facility] Comment: Immature granulocytes(IG's)percentage and absolute count will include metamyelocytes, myelocytes, and promyelocytes. Blood smears from CBCs yielding IG's will be scanned manually for concordance. If this scan disagrees with the automated IG or if promyelocytes are noted, a manual differential will be performed. Immature Gran Absolute 0.00 0.00 - 0.04 x10(3)/[facility] Blood 07/28/2022 5:02 AM EDT 07/28/2022 5:24 AM EDT Narrative Resulting Agency Comment Spec In Lab Jody Collins MD HEMATOLOGY ORDERABLE S [facility] [place] [address] * (ABNORMAL) Hemogram (07/28/2022 5:02 AM EDT) White Blood Cell 4.4 4.0 - 9.5 x10(3)/mc L [facility] Red Blood Cell 3.83(L) 4.00 - 5.21 x10(6)/mc L [facility] Hemoglobin 9.5(L) 11.7 - 15.5 g/dL [facility] Hematocrit 30.3(L) 35.7 - 45.8 % [facility] Mean Cell Volume 79.1(L) 82.6 - 94.4 fL [facility] Mean Cell Hemoglobin 24.8(L) 27.1 - 32.0 pg [facility] Mean Cell Hemoglobin Concentration 31.4(L) 31.7 - 35.0 g/dL [facility] Platelet 295 145 - 357 x10(3)/mc L [facility] RDW Standard Deviation 53.1(H) 37.0 - 46.0 fL [facility] RDW coefficient of variation 18.3(H) 11.5 - 14.1 % [facility] Mean Platelet Volume 9.5 7.6 - 12.9 fL [facility] NRBC% auto 0.0 % [facility] NRBC Absolute 0.000 0.000 - 0.000 x10(3)/mc L [facility] Blood 07/28/2022 5:02 AM EDT 07/28/2022 5:24 AM EDT Narrative Resulting Agency Comment Spec In Lab Jody Collins MD HEMATOLOGY ORDERABLE S [facility] [place] [address] * (ABNORMAL) CRP, acute inflammation (07/28/2022 5:02 AM EDT) C-Reactive Protein 33.1(H) <=4.9 mg/L [facility] Blood 07/28/2022 5:02 AM EDT 07/28/2022 5:24 AM EDT Narrative Resulting Agency Comment Spec In Lab Jody Collins MD CHEMISTRY ORDERABLES [facility] [place] [address] * (ABNORMAL) Basic Metabolic Panel (non-fasting) (07/28/2022 5:02 AM EDT) Glucose 91 65 - 199 mg/dL [facility] Comment:Diabetes: >=200 mg/d L plus symptoms Blood Urea Nitrogen 10 8 - 18 mg/dL [facility] Creatinine 0.28(L) 0.70 - 1.20 mg/dL [facility] Sodium 138 135 - 145 mmol/L [facility] Potassium 4.0 3.5 - 5.0 mmol/L [facility] Comment: Please note: ??Patients with WBC >100,000 may have falsely elevated Potassium levels. ??For accurate Potassium quantification in these patients send serum separator tube (gold top) for subsequent determinations. ??Contact the Clinical Chemistry Laboratory if there are any questions. Chloride 103 98 - 107 mmol/L [facility] Carbon Dioxide 25 22 - 31 mmol/L [facility] Anion Gap 10 5 - 15 mmol/L [facility] Calcium 8.8 8.5 - 10.5 mg/dL [facility] Est Glomerular Filtration Rate 150 >=60 mL/min/1. 73 m?? [facility] Comment: This patient's estimated GFR [...] Collins MD CHEMISTRY ORDERABLES Performing Organization Address City/[facility]/[place] [address] * Differential, Automated (07/27/2022 2:45 AM EDT) Neutrophil % 48.7 % [facility] Neutrophil Absolute 2.57 1.70 - 6.10 x10(3)/[facility] Lymph % 40.6 % [facility] Lymphocytes Abs 2.1 0.9 - 3.2 x10(3)/[facility] Monocyte % 8.2 % [facility] Monocyte Abs 0.4 0.3 - 0.9 x10(3)/[facility] Eos % 1.5 % [facility] Eosinophils Abs 0.1 0.0 - 0.4 x10(3)/[facility] Basophil % 0.8 % [facility] Baso Absolute 0.0 0.0 - 0.1 x10(3)/[facility] Immature Gran % 0.20 % [facility] Comment: Immature granulocytes(IG's)percentage and absolute count will include metamyelocytes, myelocytes, and promyelocytes. Blood smears from CBCs yielding IG's will be scanned manually for concordance. If this scan disagrees with the automated IG or if promyelocytes are noted, a manual differential will be performed. Immature Gran Absolute 0.01 0.00 - 0.04 x10(3)/[facility] Blood 07/27/2022 2:45 AM EDT 07/27/2022 2:52 AM EDT Narrative Resulting Agency Comment Spec In Lab Jody Collins MD HEMATOLOGY ORDERABLE S Performing Organization Address City/[facility]/ZIP Co de Phone [place] [address] * (ABNORMAL) Hemogram (07/27/2022 2:45 AM EDT) White Blood Cell 5.3 4.0 - 9.5 x10(3)/mc L [facility] Red Blood Cell 4.27 4.00 - 5.21 x10(6)/mc L [facility] Hemoglobin 10.4(L) 11.7 - 15.5 g/dL [facility] Hematocrit 33.6(L) 35.7 - 45.8 % [facility] Mean Cell Volume 78.7(L) 82.6 - 94.4 fL [facility] Mean Cell Hemoglobin 24.4(L) 27.1 - 32.0 pg [facility] Mean Cell Hemoglobin Concentration 31.0(L) 31.7 - 35.0 g/dL [facility] Platelet 350 145 - 357 x10(3)/mc L [facility] RDW Standard Deviation 52.4(H) 37.0 - 46.0 fL [facility] RDW coefficient of variation 18.3(H) 11.5 - 14.1 % [facility] Mean Platelet Volume 9.4 7.6 - 12.9 fL [facility] NRBC% auto 0.0 % [facility] NRBC Absolute 0.000 0.000 - 0.000 x10(3)/mc L [facility] Blood 07/27/2022 2:45 AM EDT 07/27/2022 2:52 AM EDT Narrative Resulting Agency Comment Spec In Lab Jody Collins MD HEMATOLOGY ORDERABLE S [facility] [place] [address] * Lactate, whole blood, send to lab ([facility] (07/27/2022 2:45 AM EDT) Lactate WB 1.2 0.5 - 2.2 mmol/L [facility] Blood 07/27/2022 2:45 AM EDT 07/27/2022 2:50 AM EDT Narrative Resulting Agency Comment Spec In Lab Shea Fox MD CHEMISTRY ORDERABLES Performing Organization Address [facility] Co de Phone Number [facility] [place] [address] * Magnesium (07/27/2022 2:45 AM EDT) Magnesium 0.78 0.69 - 1.07 mmol/L [facility] Blood 07/27/2022 2:45 AM EDT 07/27/2022 2:52 AM EDT Narrative Resulting Agency Comment Spec In Lab Sharron Winters MD CHEMISTRY ORDERABLES Performing Organization Address [facility] de Phone Number [facility] [place] [address] * (ABNORMAL) CRP, acute inflammation (07/27/2022 2:45 AM EDT) C-Reactive Protein 27.0(H) <=4.9 mg/L [facility] Blood 07/27/2022 2:45 AM EDT 07/27/2022 2:52 AM EDT Narrative Resulting Agency Comment Spec In Lab Jody Collins MD CHEMISTRY ORDERABLES Performing Organization Address [facility] de Phone Number [facility] [place] [address] * (ABNORMAL) Sedimentation rate (07/27/2022 2:45 AM EDT) Sedimentation Rate Automated 105(H) 2 - 37 mm/hr [facility] Comment: Effective April 06, 2019 new capillary photometric technology has resulted in a change in reference ranges. It is recommended that each ESR result be reviewed with its own age appropriate reference range. Blood 07/27/2022 2:45 AM EDT 07/27/2022 2:52 AM EDT Narrative Resulting Agency Comment Spec In Lab Jody Collins MD HEMATOLOGY ORDERABLE S Performing Organization Address [facility] Co de Phone Number [facility] [place] [address] * (ABNORMAL) Basic Metabolic Panel (non-fasting) (07/27/2022 2:45 AM EDT) Glucose 105 65 - 199 mg/dL [facility] Comment:Diabetes: >=200 mg/d L plus symptoms Blood Urea Nitrogen 12 8 - 18 mg/dL [facility] Creatinine 0.35(L) 0.70 - 1.20 mg/dL [facility] Sodium 139 135 - 145 mmol/L [facility] Potassium 4.1 3.5 - 5.0 mmol/L [facility] Comment: Please note: ??Patients with WBC >100,000 may have falsely elevated Potassium levels. ??For accurate Potassium quantification in these patients send serum separator tube (gold top) for subsequent determinations. ??Contact the Clinical Chemistry Laboratory if there are any questions. Chloride 103 98 - 107 mmol/L [facility] Carbon Dioxide 25 22 - 31 mmol/L [facility] Anion Gap 11 5 - 15 mmol/L [facility] Calcium 9.3 8.5 - 10.5 mg/dL [facility] Est Glomerular Filtration Rate 142 >=60 mL/min/1. 73 m?? [facility] Comment: This patient's estimated GFR [...] Collins MD CHEMISTRY ORDERABLES Performing Organization Address [facility] Co de Phone Number [facility] [place] [address] * Differential, Automated (07/26/2022 4:46 AM EDT) Pathologist [facility] Neutrophil % 46.4 % [facility] Neutrophil Absolute 2.25 1.70 - 6.10 x10(3)/[facility] Lymph % 43.0 % [facility] Lymphocytes Abs 2.1 0.9 - 3.2 x10(3)/[facility] Monocyte % 8.0 % [facility] Monocyte Abs 0.4 0.3 - 0.9 x10(3)/[facility] Eos % 1.6 % [facility] Eosinophils Abs 0.1 0.0 - 0.4 x10(3)/[facility] Basophil % 0.8 % [facility] Baso Absolute 0.0 0.0 - 0.1 x10(3)/[facility] Immature Gran % 0.20 % [facility] Comment: Immature granulocytes(IG's)percentage and absolute count will include metamyelocytes, myelocytes, and promyelocytes. Blood smears from CBCs yielding IG's will be scanned manually for concordance. If this scan disagrees with the automated IG or if promyelocytes are noted, a manual differential will be performed. Immature Gran Absolute 0.01 0.00 - 0.04 x10(3)/[facility] Blood 07/26/2022 4:46 AM EDT 07/26/2022 5:23 AM EDT Narrative Resulting Agency Comment Spec In Lab Jody Collins MD HEMATOLOGY ORDERABLE S [facility] [place] [address] * (ABNORMAL) Hemogram (07/26/2022 4:46 AM EDT) Pathologist [facility] White Blood Cell 4.9 4.0 - 9.5 x10(3)/mc L [facility] Red Blood Cell 4.07 4.00 - 5.21 x10(6)/mc L [facility] Hemoglobin 10.1(L) 11.7 - 15.5 g/dL [facility] Hematocrit 31.9(L) 35.7 - 45.8 % [facility] Mean Cell Volume 78.4(L) 82.6 - 94.4 fL [facility] Mean Cell Hemoglobin 24.8(L) 27.1 - 32.0 pg [facility] Mean Cell Hemoglobin Concentration 31.7 31.7 - 35.0 g/dL [facility] Platelet 348 145 - 357 x10(3)/mc L [facility] RDW Standard Deviation 52.4(H) 37.0 - 46.0 fL [facility] RDW coefficient of variation 18.3(H) 11.5 - 14.1 % [facility] Mean Platelet Volume 9.6 7.6 - 12.9 fL [facility] NRBC% auto 0.0 % [facility] NRBC Absolute 0.000 0.000 - 0.000 x10(3)/mc L [facility] Blood 07/26/2022 4:46 AM EDT 07/26/2022 5:23 AM EDT Narrative Resulting Agency Comment Spec In Lab Jody Collins MD HEMATOLOGY ORDERABLE S Performing Organization Address City/[facility]/ZIP Co de Phone Number [facility] [place] [address] * (ABNORMAL) Sedimentation rate (07/26/2022 4:46 AM EDT) [facility] Sedimentation Rate Automated 102(H) 2 - 37 mm/hr [facility] Comment: Effective April 06, 2019 new capillary photometric technology has resulted in a change in reference ranges. It is recommended that each ESR result be reviewed with its own age appropriate reference range. Blood 07/26/2022 4:46 AM EDT 07/26/2022 5:23 AM EDT Narrative Resulting Agency Comment Spec In Lab Jody Collins MD HEMATOLOGY ORDERABLE S [facility] [place] [address] * (ABNORMAL) CRP, acute inflammation (07/26/2022 4:46 AM EDT) C-Reactive Protein 40.5(H) <=4.9 mg/L [facility] Blood 07/26/2022 4:46 AM EDT 07/26/2022 5:23 AM EDT Narrative Resulting Agency Comment Spec In Lab Jody Collins MD CHEMISTRY ORDERABLES [facility] [place] [address] * (ABNORMAL) Basic Metabolic Panel (non-fasting) (07/26/2022 4:46 AM EDT) Glucose 100 65 - 199 mg/dL [facility] Comment:Diabetes: >=200 mg/d L plus symptoms Blood Urea Nitrogen 13 8 - 18 mg/dL [facility] Creatinine 0.25(L) 0.70 - 1.20 mg/dL [facility] Sodium 139 135 - 145 mmol/L [facility] Potassium 3.8 3.5 - 5.0 mmol/L [facility] Comment: Please note: ??Patients with WBC >100,000 may have falsely elevated Potassium levels. ??For accurate Potassium quantification in these patients send serum separator tube (gold top) for subsequent determinations. ??Contact the Clinical Chemistry Laboratory if there are any questions. Chloride 103 98 - 107 mmol/L [facility] Carbon Dioxide 23 22 - 31 mmol/L [facility] Anion Gap 13 5 - 15 mmol/L [facility] Calcium 9.4 8.5 - 10.5 mg/dL [facility] Est Glomerular Filtration Rate 154 >=60 mL/min/1. 73 m?? [facility] Comment: This patient's estimated GFR [...] Collins MD CHEMISTRY ORDERABLES Performing Organization Address [facility] Co de Phone Number [facility] [place] [address] * EKG 12 Lead (07/25/2022 12:42 PM EDT) Pathologist [facility] Ventricular rate 106 BPM MUSE SYSTEM Atrial Rate 106 BPM MUSE SYSTEM P-R Interval 120 ms MUSE SYSTEM QRS Duration 74 ms MUSE SYSTEM Q-T Interval 328 ms MUSE SYSTEM QTC Calculated (Bezet) 435 ms MUSE SYSTEM Calculated P Frederick 22 degrees MUSE SYSTEM Calculated R Frederick 7 degrees MUSE SYSTEM Calculated T Frederick 25 degrees MUSE SYSTEM INTERPRETATION Sinus tachycardia Possible Inferior infarct (cited on or before 07-JUL-2022) Abnormal ECG When compared with ECG of 07-JUL-2022 11:44, Nonspecific T wave abnormality no longer evident in Anterior leads Confirmed by MD Chowdary Daniel ([id number]) on 08/07/2022 5:45:44 PM MUSE SYSTEM 07/25/2022 12:4 2 PM EDT 08/07/2022 5:45 PM EDT Jody Collins MD ECG ORDERABLES Performing Organization Address [facility] Co de Phone Number MUSE SYSTEM * Differential, Automated (07/25/2022 4:37 AM EDT) Pathologist [facility] Neutrophil % 54.4 % [facility] Neutrophil Absolute 2.66 1.70 - 6.10 x10(3)/[facility] Lymph % 35.0 % [facility] Lymphocytes Abs 1.7 0.9 - 3.2 x10(3)/[facility] Monocyte % 8.6 % [facility] Monocyte Abs 0.4 0.3 - 0.9 x10(3)/[facility] Eos % 1.0 % [facility] Eosinophils Abs 0.0 0.0 - 0.4 x10(3)/[facility] Basophil % 0.6 % [facility] Baso Absolute 0.0 0.0 - 0.1 x10(3)/[facility] Immature Gran % 0.40 % [facility] Comment: Immature granulocytes(IG's)percentage and absolute count will include metamyelocytes, myelocytes, and promyelocytes. Blood smears from CBCs yielding IG's will be scanned manually for concordance. If this scan disagrees with the automated IG or if promyelocytes are noted, a manual differential will be performed. Immature Gran Absolute 0.02 0.00 - 0.04 x10(3)/[facility] Blood 07/25/2022 4:37 AM EDT 07/25/2022 4:50 AM EDT Narrative Resulting Agency Comment Spec In Lab Eddi Vázquez MD HEMATOLOGY ORDERABLE S Performing Organization Address City/State/[facility] Co de Phone Number [facility] [place] [address] * (ABNORMAL) Hemogram (07/25/2022 4:37 AM EDT) White Blood Cell 4.9 4.0 - 9.5 x10(3)/mc L [facility] Red Blood Cell 4.16 4.00 - 5.21 x10(6)/mc L [facility] Hemoglobin 10.3(L) 11.7 - 15.5 g/dL [facility] Hematocrit 32.6(L) 35.7 - 45.8 % [facility] Mean Cell Volume 78.4(L) 82.6 - 94.4 fL [facility] Mean Cell Hemoglobin 24.8(L) 27.1 - 32.0 pg [facility] Mean Cell Hemoglobin Concentration 31.6(L) 31.7 - 35.0 g/dL [facility] Platelet 357 145 - 357 x10(3)/mc L [facility] RDW Standard Deviation 52.5(H) 37.0 - 46.0 fL [facility] RDW coefficient of variation 18.5(H) 11.5 - 14.1 % [facility] Mean Platelet Volume 9.6 7.6 - 12.9 fL [facility] NRBC% auto 0.0 % [facility] NRBC Absolute 0.000 0.000 - 0.000 x10(3)/mc L [facility] Blood 07/25/2022 4:37 AM EDT 07/25/2022 4:50 AM EDT Narrative Resulting Agency Comment Spec In Lab Eddi Vázquez MD HEMATOLOGY ORDERABLE S Performing Organization Address City/State/[facility] Co de Phone Number [facility] [place] [address] * (ABNORMAL) Basic Metabolic Panel (non-fasting) (07/25/2022 4:37 AM EDT) Glucose 99 65 - 199 mg/dL [facility] Comment:Diabetes: >=200 mg/d L plus symptoms Blood Urea Nitrogen 13 8 - 18 mg/dL [facility] Creatinine 0.49(L) 0.70 - 1.20 mg/dL [facility] Sodium 138 135 - 145 mmol/L [facility] Potassium 3.9 3.5 - 5.0 mmol/L [facility] Comment: Please note: ??Patients with WBC >100,000 may have falsely elevated Potassium levels. ??For accurate Potassium quantification in these patients send serum separator tube (gold top) for subsequent determinations. ??Contact the Clinical Chemistry Laboratory if there are any questions. Chloride 105 98 - 107 mmol/L [facility] Carbon Dioxide 23 22 - 31 mmol/L [facility] Anion Gap 10 5 - 15 mmol/L [facility] Calcium 8.9 8.5 - 10.5 mg/dL [facility] Est Glomerular Filtration Rate 131 >=60 mL/min/1. 73 m?? [facility] Comment: This patient's estimated GFR [...] In Lab Eddi Vázquez MD [place] [address] * IR All Drainage Procedures (07/24/2022 4:02 PM EDT) Anatomical Region Laterality Modality X-Ray Angiograph y Impressions 07/25/2022 8:08 AM EDT Percutaneous placement of a 10 Setswana drainage catheter into subcutaneous collection adjacent to RIGHT SI joint screw, yielding 5 mL of bloody fluid. Percutaneous placement of a 8 Setswana drainage catheter into subcutaneous collection adjacent to [...] questions please contact the health health care consultant that requested your imaging first. ? Electronically signed by: Anurag Kumar MD, [facility] ([phone]), at 07/25/2022 8:08 AM Narrative 07/25/2022 8:08 [...] complications. IMPRESSION Percutaneous placement of a 10 Setswana drainage catheter intosubcutaneous collection adjacent to RIGHT SI joint screw, yielding 5 mL of bloodyfluid. Percutaneous placement of a 8 Setswana drainage catheter into subcutaneous collection adjacent to [...] have questions please contactthe health health care consultant that requested your imaging first. Electronically signed by: Anurag Kumar MD, [facility]([phone]), at 07/25/2022 8:08 AM Ernesto Willingham MD IMG IR ORDERABLES * Anaerobic Culture (07/24/2022 3:47 PM EDT) Anaerobic Culture No anaerobic organisms isolated [facility] Fluid 07/24/2022 3:47 PM EDT 07/24/2022 4:43 PM EDT Comment:SI/L5 Narrative Resulting Agency Comment Spec In Lab Anurag Kumar MD MICROBIOLOGY - GEN ERAL ORDERABLES [facility] [place] [address] * Crystal Exam Body Fluid Other (07/24/2022 3:47 PM EDT) Crystal BF Type Other [facility] Comment: Interpret with caution due to questionable sample integrity caused by sample age. Results may be inaccurate due to presence of many degenerated cells. Crystal Exam, Fld None Seen [facility] Other 07/24/2022 3:47 PM EDT 07/24/2022 4:31 PM EDT Narrative Resulting Agency Comment Spec In Lab Anurag Kumar MD BODY FLUIDS AND ST OOLS ORDERABLES [facility] [place] [address] * Cell Count Body Fluid Other (07/24/2022 3:47 PM EDT) Body Fluid Source Other [facility] Comment: Interpret with caution due to questionable sample integrity caused by sample age. Results may be inaccurate due to presence of many degenerated cells. Called by: [facility], Read back by: carlin alejo, Date/Time:07/24/22 17:51. Color, Fld Red [facility] Comment: Interpret with caution due to questionable sample integrity caused by sample age. Results may be inaccurate due to presence of many degenerated cells. Appearance, Fld Cloudy [facility] Comment: Interpret with caution due to questionable sample integrity caused by sample age. Results may be inaccurate due to presence of many degenerated cells. WBC Count, Fld Not Perf [facility] Comment: Interpret with caution due to questionable sample integrity caused by sample age. Results may be inaccurate due to presence of many degenerated cells. All body fluid results should always be interpreted in light of the total clinical presentation of the patient, including clinical history, data from additional tests and other appropriate information. Polymorphonuclear cells BF % Not Perf [facility] Comment: Interpret with caution due to questionable sample integrity caused by sample age. Results may be inaccurate due to presence of many degenerated cells. Polymorphonuclear cell percent and absolute values may contain Neutrophils, Eosinophils, and Basophils. Body fluid smear will be scanned manually for concordance. Mononuclear cells BF % Not Perf [facility] Comment: Interpret with caution due to questionable sample integrity caused by sample age. Results may be inaccurate due to presence of many degenerated cells. Mononuclear cell percent and absolute values may contain Lymphocytes and Monocytes. Body fluid smear will be scanned manually for concordance. Polymorphonuclear cells BF ABS Not Perf [facility] Comment: Interpret with caution due to questionable sample integrity caused by sample age. Results may be inaccurate due to presence of many degenerated cells. Polymorphonuclear cell percent and absolute values may contain Neutrophils, Eosinophils, and Basophils. Body fluid smear will be scanned manually for concordance. Mononuclear cells BF ABS Not Perf [facility] Comment: Interpret with caution due [...] Anurag Kumar [facility] [place] [place] [address] * Abscess/Wound Aspirate Culture Abscess; Pelvic (07/24/2022 3:47 PM EDT) Abscess/Wound Aspirate Culture No growth [facility] Gram Stain Many Neutrophils seen No microorganisms seen. [facility] Abscess [place] / Unknown 07/24/2022 3:47 PM EDT 07/24/2022 4:43 PM EDT Comment:SI/L5 Narrative Resulting Agency Comment Spec In Lab Anurag Kumar MD MICROBIOLOGY - GEN ERAL ORDERABLES Performing Organization Address City/[facility]/ZIP Co de Phone Number [facility] [address] * AFB culture (07/24/2022 3:22 PM EDT) Acid Fast Bacilli Culture No Acid Fast Bacilli isolated [facility] Acid Fast Stain No Acid Fast Bacilli seen [facility] Vertebra LUMBAR SPINE STRUCTURE / Unknown 07/24/2022 3:22 PM EDT 07/27/2022 12:32 PM EDT Comment:LUMBAR ABSCESS Narrative Resulting Agency Comment Spec In Lab Jody Collins MD MICROBIOLOGY - GENER AL ORDERABLES Performing Organization Address [facility] Co de Phone Number [facility] [address] * Calcofluor White Stain (07/24/2022 3:22 PM EDT) Calcofluor Stain Calcofluor White Preparation: Negative [facility] Abscess LUMBAR SPINE STRUCTURE / Unknown 07/24/2022 3:22 PM EDT 07/27/2022 12:30 PM EDT Comment:Lumbar abscess Narrative Resulting Agency Comment Spec In Lab Jody Collins MD MICROBIOLOGY - GENER AL ORDERABLES Performing Organization Address City/[facility] Co de Phone Number [facility] [place] [place] [address] * Fungus culture (07/24/2022 3:22 PM EDT) Fungus Culture No Fungus isolated [facility] Abscess LUMBAR SPINE STRUCTURE / Unknown 07/24/2022 3:22 PM EDT 07/27/2022 12:30 PM EDT Comment:Lumbar abscess Narrative Resulting Agency Comment Spec In Lab Jody Collins MD MICROBIOLOGY - GENER AL ORDERABLES Performing Organization Address [facility] Co de Phone Number [facility] [place] [address] * Anaerobic Culture (07/24/2022 3:22 PM EDT) Anaerobic Culture No anaerobic organisms isolated [facility] Fluid 07/24/2022 3:22 PM EDT 07/24/2022 4:44 PM EDT Comment:Lumbar abscess Narrative Resulting Agency Comment Spec In Lab Mal Menchaca MD MICROBIOLOGY - GENER AL ORDERABLES Performing Organization Address [facility] Co de Phone Number [facility] [place] [address] * Body Fluid Culture, Aerobic (07/24/2022 3:22 PM EDT) Body Fluid Culture No growth [facility] Gram Stain Few Neutrophils seen No microorganisms seen. [facility] Fluid 07/24/2022 3:22 PM EDT 07/24/2022 4:44 PM EDT Comment:Lumbar abscess Narrative Resulting Agency Comment Spec In Lab Mal Menchaca MD MICROBIOLOGY - GENER AL ORDERABLES Performing Organization Address City/[facility] Co de Phone Number [facility] [place] [address] * Crystal Exam Body Fluid Other (07/24/2022 3:22 PM EDT) Crystal BF Type Other [facility] Comment: Interpret with caution due to questionable sample integrity caused by sample age. Results may be inaccurate due to presence of many degenerated cells. Crystal Exam, Fld None Seen [facility] Other 07/24/2022 3:22 PM EDT 07/24/2022 4:34 PM EDT Narrative Resulting Agency Comment Spec In Lab Ernesto Willingham MD BODY FLUIDS AND [place]AR[place] ORDERABLES [facility] [place] [address] * Cell Count Body Fluid Other (07/24/2022 3:22 PM EDT) Body Fluid Source Other [facility] Comment: Interpret with caution due to questionable sample integrity caused by sample age. Results may be inaccurate due to presence of many degenerated cells. Called by: millicent, Read back by: carlin alejo, Date/Time:07/24/22 17:51. Color, Fld Red [facility] Comment: Interpret with caution due to questionable sample integrity caused by sample age. Results may be inaccurate due to presence of many degenerated cells. Appearance, Fld Cloudy [facility] Comment: Interpret with caution due to questionable sample integrity caused by sample age. Results may be inaccurate due to presence of many degenerated cells. WBC Count, Fld Not Perf [facility] Comment: Interpret with caution due to questionable sample integrity caused by sample age. Results may be inaccurate due to presence of many degenerated cells. All body fluid results should always be interpreted in light of the total clinical presentation of the patient, including clinical history, data from additional tests and other appropriate information. Polymorphonuclear cells BF % Not Perf [facility] Comment: Interpret with caution due to questionable sample integrity caused by sample age. Results may be inaccurate due to presence of many degenerated cells. Polymorphonuclear cell percent and absolute values may contain Neutrophils, Eosinophils, and Basophils. Body fluid smear will be scanned manually for concordance. Mononuclear cells BF % Not Perf [facility] Comment: Interpret with caution due to questionable sample integrity caused by sample age. Results may be inaccurate due to presence of many degenerated cells. Mononuclear cell percent and absolute values may contain Lymphocytes and Monocytes. Body fluid smear will be scanned manually for concordance. Polymorphonuclear cells BF ABS Not Perf [facility] Comment: Interpret with caution due to questionable sample integrity caused by sample age. Results may be inaccurate due to presence of many degenerated cells. Polymorphonuclear cell percent and absolute values may contain Neutrophils, Eosinophils, and Basophils. Body fluid smear will be scanned manually for concordance. Mononuclear cells BF ABS Not Perf [facility] Comment: Interpret with caution due [...] MD BODY FLUIDS AND STOO LS ORDERABLES [facility] [place] [address] * Differential, Automated (07/24/2022 5:25 AM EDT) Neutrophil % 46.6 % [facility] Neutrophil Absolute 2.04 1.70 - 6.10 x10(3)/[facility] Lymph % 42.9 % [facility] Lymphocytes Abs 1.9 0.9 - 3.2 x10(3)/[facility] Monocyte % 8.0 % [facility] Monocyte Abs 0.4 0.3 - 0.9 x10(3)/[facility] Eos % 1.8 % [facility] Eosinophils Abs 0.1 0.0 - 0.4 x10(3)/[facility] Basophil % 0.7 % [facility] Baso Absolute 0.0 0.0 - 0.1 x10(3)/[facility] Immature Gran % 0.00 % [facility] Comment: Immature granulocytes(IG's)percentage and absolute count will include metamyelocytes, myelocytes, and promyelocytes. Blood smears from CBCs yielding IG's will be scanned manually for concordance. If this scan disagrees with the automated IG or if promyelocytes are noted, a manual differential will be performed. Immature Gran Absolute 0.00 0.00 - 0.04 x10(3)/[facility] Blood 07/24/2022 5:25 AM EDT 07/24/2022 5:57 AM EDT Narrative Resulting Agency Comment Spec In Lab Eddi Vázquez MD HEMATOLOGY ORDERABLE S [facility] [place] [address] * (ABNORMAL) Hemogram (07/24/2022 5:25 AM EDT) White Blood Cell 4.4 4.0 - 9.5 x10(3)/mc L [facility] Red Blood Cell 3.92(L) 4.00 - 5.21 x10(6)/mc L [facility] Hemoglobin 9.6(L) 11.7 - 15.5 g/dL [facility] Hematocrit 31.4(L) 35.7 - 45.8 % [facility] Mean Cell Volume 80.1(L) 82.6 - 94.4 fL [facility] Mean Cell Hemoglobin 24.5(L) 27.1 - 32.0 pg [facility] Mean Cell Hemoglobin Concentration 30.6(L) 31.7 - 35.0 g/dL [facility] Platelet 343 145 - 357 x10(3)/mc L [facility] RDW Standard Deviation 54.7(H) 37.0 - 46.0 fL [facility] RDW coefficient of variation 18.7(H) 11.5 - 14.1 % [facility] Mean Platelet Volume 9.5 7.6 - 12.9 fL [facility] NRBC% auto 0.0 % [facility] NRBC Absolute 0.000 0.000 - 0.000 x10(3)/ L [facility] Blood 07/24/2022 5:25 AM EDT 07/24/2022 5:57 AM EDT Narrative Resulting Agency Comment Spec In Lab Eddi Vázquez MD HEMATOLOGY ORDERABLE S [facility] [place] [address] * (ABNORMAL) Basic Metabolic Panel (non-fasting) (07/24/2022 5:25 AM EDT) Glucose 89 65 - 199 mg/dL [facility] Comment:Diabetes: >=200 mg/d L plus symptoms Blood Urea Nitrogen 11 8 - 18 mg/dL [facility] Creatinine 0.34(L) 0.70 - 1.20 mg/dL [facility] Sodium 138 135 - 145 mmol/L [facility] Potassium 3.9 3.5 - 5.0 mmol/L [facility] Comment: Please note: ??Patients with WBC >100,000 may have falsely elevated Potassium levels. ??For accurate Potassium quantification in these patients send serum separator tube (gold top) for subsequent determinations. ??Contact the Clinical Chemistry Laboratory if there are any questions. Chloride 104 98 - 107 mmol/L [facility] Carbon Dioxide 23 22 - 31 mmol/L [facility] Anion Gap 11 5 - 15 mmol/L [facility] Calcium 9.1 8.5 - 10.5 mg/dL [facility] Est Glomerular Filtration Rate 143 >=60 mL/min/1. 73 m?? [facility] Comment: This patient's estimated GFR [...] In Lab Eddi Vázquez MD CHEMISTRY ORDERABLES [facility] [place] [address] * Differential, Automated (07/23/2022 3:00 AM EDT) Neutrophil % 50.7 % [facility] Neutrophil Absolute 3.15 1.70 - 6.10 x10(3)/mcL [facility] Lymph % 40.3 % [facility] Lymphocytes Abs 2.5 0.9 - 3.2 x10(3)/[facility] Monocyte % 7.2 % [facility] Monocyte Abs 0.4 0.3 - 0.9 x10(3)/[facility] Eos % 1.1 % [facility] Eosinophils Abs 0.1 0.0 - 0.4 x10(3)/[facility] Basophil % 0.5 % [facility] Baso Absolute 0.0 0.0 - 0.1 x10(3)/[facility] Immature Gran % 0.20 % [facility] Comment: Immature granulocytes(IG's)percentage and absolute count will include metamyelocytes, myelocytes, and promyelocytes. Blood smears from CBCs yielding IG's will be scanned manually for concordance. If this scan disagrees with the automated IG or if promyelocytes are noted, a manual differential will be performed. Immature Gran Absolute 0.01 0.00 - 0.04 x10(3)/[facility] Blood 07/23/2022 3:00 AM EDT 07/23/2022 3:02 AM EDT Narrative Resulting Agency Comment Spec In Lab Eddi Vázquez MD HEMATOLOGY ORDERABLE S Performing Organization Address City/State/[facility] Co de Phone Number [facility] [place] [address] * (ABNORMAL) Hemogram (07/23/2022 3:00 AM EDT) White Blood Cell 6.2 4.0 - 9.5 x10(3)/mc L [facility] Red Blood Cell 4.19 4.00 - 5.21 x10(6)/mc L [facility] Hemoglobin 10.5(L) 11.7 - 15.5 g/dL [facility] Hematocrit 32.7(L) 35.7 - 45.8 % [facility] Mean Cell Volume 78.0(L) 82.6 - 94.4 fL [facility] Mean Cell Hemoglobin 25.1(L) 27.1 - 32.0 pg [facility] Mean Cell Hemoglobin Concentration 32.1 31.7 - 35.0 g/dL [facility] Platelet 364(H) 145 - 357 x10(3)/mc L [facility] RDW Standard Deviation 53.3(H) 37.0 - 46.0 fL [facility] RDW coefficient of variation 18.6(H) 11.5 - 14.1 % [facility] Mean Platelet Volume 9.0 7.6 - 12.9 fL [facility] NRBC% auto 0.0 % [facility] NRBC Absolute 0.000 0.000 - 0.000 x10(3)/mc L [facility] Blood 07/23/2022 3:00 AM EDT 07/23/2022 3:02 AM EDT Narrative Resulting Agency Comment Spec In Lab Eddi Vázquez MD HEMATOLOGY ORDERABLE S [facility] [place] [address] * (ABNORMAL) Basic Metabolic Panel (non-fasting) (07/23/2022 3:00 AM EDT) Glucose 101 65 - 199 mg/dL [facility] Comment:Diabetes: >=200 mg/d L plus symptoms Blood Urea Nitrogen 9 8 - 18 mg/dL [facility] Creatinine 0.31(L) 0.70 - 1.20 mg/dL [facility] Sodium 141 135 - 145 mmol/L [facility] Potassium 3.6 3.5 - 5.0 mmol/L [facility] Comment: Please note: ??Patients with WBC >100,000 may have falsely elevated Potassium levels. ??For accurate Potassium quantification in these patients send serum separator tube (gold top) for subsequent determinations. ??Contact the Clinical Chemistry Laboratory if there are any questions. Chloride 105 98 - 107 mmol/L [facility] Carbon Dioxide 23 22 - 31 mmol/L [facility] Anion Gap 13 5 - 15 mmol/L [facility] Calcium 8.9 8.5 - 10.5 mg/dL [facility] Est Glomerular Filtration Rate 146 >=60 mL/min/1. 73 m?? [facility] Comment: This patient's estimated GFR [...] Vázquez MD CHEMISTRY ORDERABLES Performing Organization Address [facility] Co de Phone Number [facility] [address] * Blood culture (07/22/2022 10:47 PM EDT) Blood Culture No growth at 5 days. [facility] Blood VENOUS CATHETER / Unknown 07/22/2022 10:47 PM EDT 07/22/2022 10:48 PM EDT Comment:add-on Narrative Resulting Agency Comment Spec In Lab Samuel Comer MD MICROBIOLOGY - BLOOD ORDERABLES Performing Organization Address [facility] Co de Phone Number [facility] [place] [address] * Anaerobic Culture (07/22/2022 9:30 PM EDT) Anaerobic Culture No anaerobic organisms isolated [facility] Fluid 07/22/2022 9:30 PM EDT 07/22/2022 9:45 PM EDT Narrative Resulting Agency Comment Spec In Lab Samuel Comer MD MICROBIOLOGY - GENER AL ORDERABLES Performing Organization Address [facility] Co de Phone Number [facility] [place] [address] * Body Fluid Culture, Aerobic (07/22/2022 9:30 PM EDT) Body Fluid Culture No growth to date. [facility] Gram Stain Many Neutrophils seen No microorganisms seen. [facility] Fluid 07/22/2022 9:30 PM EDT 07/22/2022 9:45 PM EDT Narrative Resulting Agency Comment Spec In Lab Samuel Comer MD MICROBIOLOGY - GENER AL ORDERABLES Performing Organization Address [facility] Co de Phone Number [facility] [place] [address] * Cell Count Body Fluid Other (07/22/2022 9:30 PM EDT) Body Fluid Source Other [facility] Color, Fld Red [facility] Appearance, Fld Clotted [facility] WBC Count, Fld Clotted [facility] Comment: Called by: CHARLEY, Read back by: Yarelis Galdamez, Date/Time:07/22/22 21:56. All body fluid results should always be interpreted in light of the total clinical presentation of the patient, including clinical history, data from additional tests and other appropriate information. Polymorphonuclear cells BF % Clotted % [facility] Comment: Polymorphonuclear cell percent and absolute values may contain Neutrophils, Eosinophils, and Basophils. Body fluid smear will be scanned manually for concordance. Mononuclear cells BF % Clotted % [facility] Comment: Mononuclear cell percent and absolute values may contain Lymphocytes and Monocytes. Body fluid smear will be scanned manually for concordance. Polymorphonuclear cells BF ABS Clotted /[facility] Comment: Polymorphonuclear cell percent and absolute values may contain Neutrophils, Eosinophils, and Basophils. Body fluid smear will be scanned manually for concordance. Mononuclear cells BF ABS Clotted /[facility] Comment: Mononuclear cell percent and absolute values may contain Lymphocytes and Monocytes. Body fluid smear will be scanned manually for concordance. Other 07/22/2022 9:30 PM EDT 07/22/2022 9:38 PM EDT Narrative Resulting Agency Comment Spec In Lab Alek Tavares MD BODY FLUIDS AND STOO LS ORDERABLES Performing Organization Address City/[facility]/ZIP Co de Phone Number [facility] [place] [address] * Blood culture (07/22/2022 9:15 PM EDT) Blood Culture No growth at 5 days. [facility] Blood 07/22/2022 9:15 PM EDT 07/22/2022 9:29 PM EDT Comment:L AC Narrative Resulting Agency Comment Spec In Lab Alek Tavares MD MICROBIOLOGY - BLOOD ORDERABLES [facility] [place] [address] * CT Lumbar Spine w Contrast (07/22/2022 [...] questions please contact the health health care consultant that requested your imaging first. ? Electronically signed by: aJmaal Villafuerte [facility] ([phone]), at 07/22/2022 8:03 PM Narrative 07/22/2022 8:03 [...] have questions please contactthe health health care consultant that requested your imaging first. Electronically signed by: Jamaal Villafuerte [facility]([phone]), at 07/22/2022 8:03 PM Marie Telles MD IMG CT ORDERABLES * Differential, Automated (07/22/2022 7:12 PM EDT) Neutrophil % 53.7 % [facility] Neutrophil Absolute 3.01 1.70 - 6.10 x10(3)/[facility] Lymph % 37.4 % [facility] Lymphocytes Abs 2.1 0.9 - 3.2 x10(3)/[facility] Monocyte % 6.2 % [facility] Monocyte Abs 0.4 0.3 - 0.9 x10(3)/[facility] Eos % 1.4 % [facility] Eosinophils Abs 0.1 0.0 - 0.4 x10(3)/[facility] Basophil % 1.1 % [facility] Baso Absolute 0.1 0.0 - 0.1 x10(3)/[facility] Immature Gran % 0.20 % [facility] Comment: Immature granulocytes(IG's)percentage and absolute count will include metamyelocytes, myelocytes, and promyelocytes. Blood smears from CBCs yielding IG's will be scanned manually for concordance. If this scan disagrees with the automated IG or if promyelocytes are noted, a manual differential will be performed. Immature Gran Absolute 0.01 0.00 - 0.04 x10(3)/mcL [facility] Blood 07/22/2022 7:12 PM EDT 07/22/2022 7:21 PM EDT Narrative Resulting Agency Comment Spec In Lab Phyllis SIMMS HEMATOLOGY ORDERABLE S [facility] [place] [address] * (ABNORMAL) Hemogram (07/22/2022 7:12 PM EDT) White Blood Cell 5.6 4.0 - 9.5 x10(3)/mc L [facility] Red Blood Cell 4.58 4.00 - 5.21 x10(6)/mc L [facility] Hemoglobin 11.2(L) 11.7 - 15.5 g/dL [facility] Hematocrit 36.2 35.7 - 45.8 % [facility] Mean Cell Volume 79.0(L) 82.6 - 94.4 fL [facility] Mean Cell Hemoglobin 24.5(L) 27.1 - 32.0 pg [facility] Mean Cell Hemoglobin Concentration 30.9(L) 31.7 - 35.0 g/dL [facility] Platelet 449(H) 145 - 357 x10(3)/mc L [facility] RDW Standard Deviation 52.9(H) 37.0 - 46.0 fL [facility] RDW coefficient of variation 18.3(H) 11.5 - 14.1 % [facility] Mean Platelet Volume 9.2 7.6 - 12.9 fL [facility] NRBC% auto 0.0 % [facility] NRBC Absolute 0.000 0.000 - 0.000 x10(3)/mc L [facility] Blood 07/22/2022 7:12 PM EDT 07/22/2022 7:21 PM EDT Narrative Resulting Agency Comment Spec In Lab Phyllis SIMMS HEMATOLOGY ORDERABLE S [facility] [place] [address] * (ABNORMAL) CRP, acute inflammation (07/22/2022 7:12 PM EDT) C-Reactive Protein 48.9(H) <=4.9 mg/L [facility] Blood 07/22/2022 7:12 PM EDT 07/22/2022 7:21 PM EDT Narrative Resulting Agency Comment Spec In Lab Amarilis Carcamo DO CHEMISTRY O RDERABLES [facility] [place] [address] * (ABNORMAL) Sedimentation rate (07/22/2022 7:12 PM EDT) Sedimentation Rate Automated >119(H) 2 - 37 mm/hr [facility] Comment: Effective April 06, 2019 new capillary photometric technology has resulted in a change in reference ranges. It is recommended that each ESR result be reviewed with its own age appropriate reference range. Blood 07/22/2022 7:12 PM EDT 07/22/2022 7:21 PM EDT Narrative Resulting Agency Comment Spec In Lab Amarilis Carcamo DO HEMATOLOGY ORDERABLES Performing Organization Address City/[facility]/ZIP Co de Phone Number [facility] [place] [address] * (ABNORMAL) Basic Metabolic Panel (non-fasting) (07/22/2022 7:12 PM EDT) Glucose 99 65 - 199 mg/dL [facility] Comment:Diabetes: >=200 mg/d L plus symptoms Blood Urea Nitrogen 10 8 - 18 mg/dL [facility] Creatinine 0.34(L) 0.70 - 1.20 mg/dL [facility] Sodium 139 135 - 145 mmol/L [facility] Potassium 3.8 3.5 - 5.0 mmol/L [facility] Comment: Please note: ??Patients with WBC >100,000 may have falsely elevated Potassium levels. ??For accurate Potassium quantification in these patients send serum separator tube (gold top) for subsequent determinations. ??Contact the Clinical Chemistry Laboratory if there are any questions. Chloride 103 98 - 107 mmol/L [facility] Carbon Dioxide 26 22 - 31 mmol/L [facility] Anion Gap 10 5 - 15 mmol/L [facility] Calcium 9.4 8.5 - 10.5 mg/dL [facility] Est Glomerular Filtration Rate 143 >=60 mL/min/1. 73 m?? [facility] Comment: This patient's estimated GFR [...] In Lab Marie Telles MD CHEMISTRY ORDERABLES [facility] [place] [address] documented in this encounter Visit Diagnoses Diagnosis [...] appropriate choice: ID Approval by Sergey Aguirre / was home med Given 08/01/2022 8:18 AM EDT 750 mg [...] Gonzalez RN) 0857 (Given - Provider: Jimbo Willasm RN)2105 (Given - Provider: Yandy Masters RN) [...] appropriate choice: ID Approval by Sergey Aguirre / [facility] med 08 (Given - Provider: Frankie Hair RN) [...] (Patch Removed - Provider: Paige Gonzalez RN) 08 (Patch Applied - Provider: Jimbo iWllams RN)2057 (Patch Removed - Provider: Yandy Masters [...] RN)2105 (Given - Provider: Yandy Masters RN) 09 (Not Given - Provider: Jimbo Willams RN [...] documented as of this encounter Care Teams Watch Crystal Cutter Relationship Specialty Start Date End Date Lorna Bal APRN [address] [place] [address] PCP - General Family Medicine 05/27/18 documented as of this encounter
--- OUTSIDE RECORDS SUMMARY | 2024-01-12 21:16 | XMS_ITS | Encounter Summary ---
Author Organization [facility] Address [facility] [place] [address] Care Team Providers Care Transfusion Aide Name Role Phone Lorna Bla APRN Primary Care Provider +1 [phone] Encounter Details Date Type Department Care Team (Late st Contact Info) Description 07/17/2022 Telephone [place] [phone] Jamaal Estrada MD [facility] DR [place] [address] Social History Tobacco Use Types Packs/Day Years [...] PM EST Office [place] [address] Hollie Ambriz MD [facility] [place] [address] documented as of this encounter Visit Diagnoses Not on filedocumented in this encounter Care Teams Transfusion Aide Relationship Specialty Start Date End Date Lorna Bal APRN [address] [place] [address] PCP - General Family Medicine 05/27/18 documented as of this encounter
--- OUTSIDE RECORDS SUMMARY | 2024-01-12 21:16 | XMS_ITS | Encounter Summary ---
Author Organization [facility] [address] [facility] [place] [address] Care Team Providers Care House Wirer Helper Name Role Phone Lorna Bal APRN Primary Care Provider +1 [phone] Encounter Details Date Type Department Care Team (Late st Contact Info) Description 07/09/2022 Notes Only Infectious Disease at [facility] [place] [phone] Mesha Mckeon, RN Social History Tobacco Use [...] Infectious Disease Department Faxed to [facility] and [facility] on 07/09/22 at 0950 Fax confirmation on 07/09/22 at 0952 Document(s) faxed: Standing labs documented in this encounter Plan of Treatment Upcoming Encounters Date Type Department Care Team (Late st Contact Info) Description 06/02/2024 12:30 PM EST Office Visit [place] [address] Hollie Ambriz MD [facility] [place] [address] documented as of this encounter Visit Diagnoses Not on filedocumented in this encounter Additional Health Concerns Infection Onset Date Last Indicated Resolved Time Parainfluenza Virus 06/28/2022 06/28/2022 07/10/19 8:09 PM EDT documented as of this encounter Care Teams House Wirer Helper Relationship Specialty Start Date End Date Lorna Bal APRN [address] [place] [address] PCP - General Family Medicine 05/27/18 documented as of this encounter
--- OUTSIDE RECORDS SUMMARY | 2024-01-12 21:16 | XMS_ITS | Encounter Summary ---
Author Organization [facility] [place] [address] Care Team Providers Care Pipe Fitter Fire Sprinkler Systems Name Role Phone Lorna Bal APRN Primary Care Provider +1 [phone] Encounter Details Date Type Department Care Team (Late st Contact Info) Description 07/22/2022 Orders [place] [address] Yury Gibbons MD [facility] [place] [address] Social History Tobacco Use Types Packs/Day Years [...] PM EST Office Visit [place] [address] Hollie Ambriz MD [facility] [place] [address] documented as of this encounter Visit Diagnoses Not on filedocumented in this encounter Care Teams Pipe Fitter Fire Sprinkler Systems Relationship Specialty Start Date End Date Lorna Bal APRN [address] [place] [address] PCP - General Family Medicine 05/27/18 documented as of this encounter
--- OUTSIDE RECORDS SUMMARY | 2024-01-12 21:16 | XMS_ITS | Encounter Summary ---
Author Organization [facility] [place] [address] Care Team Providers Care Principal Investigator Name Role Phone Lorna Bal APRN Primary Care Provider +1 [phone] Encounter Details Date Type Department Care Team (Late st Contact Info) Description 07/15/2022 Telephone [place] [address] Valentina Stanton Social History Tobacco Use Types [...] alert. She is taking levofloxacin as prescribed. [facility] today. We talked about [...] PM EST Office [place] [address] Hollie Ambriz MD [facility] [place] [address] documented as of this encounter Visit Diagnoses Not on filedocumented in this encounter Care Teams Principal Investigator Relationship Specialty Start Date End Date Lorna Bal APRN [address] [place] [address] PCP - General Family Medicine 05/27/18 documented as of this encounter
--- OUTSIDE RECORDS SUMMARY | 2024-01-12 21:16 | XMS_ITS | Encounter Summary ---
Author Organization [facility] Benjamin [facility] [place] [address] Care Team Providers Care Gaming Investigator Name Role Phone Lorna Bal APRN Primary Care Provider [phone] [phone] Encounter Details Date Type Department Care Team (Late st Contact Info) Description 07/22/2022 Notes Only Infectious Disease at [facility] [place] [address] Mesha Mckeon, RN Social History Tobacco Use [...] 07/22/2022 1:28 PM EDT Received call from [facility] who informed this sba underwriter that they are unable to obtain [...] PM EST Office [place] [address] Hollie Ambriz MD [facility] [place] [address] documented as of this encounter Visit Diagnoses Not on filedocumented in this encounter Care Teams Gaming Investigator Relationship Specialty Start Date End Date Lorna Bal APRN [address] [place] [address] PCP - General Family Medicine 05/27/18 documented as of this encounter
--- OUTSIDE RECORDS SUMMARY | 2024-01-12 21:16 | XMS_ITS | Encounter Summary ---
[place] [address] Care Team Providers Care Eligibility Counselor Name Role Phone Lorna Bal APRN Primary Care Provider +1 -[phone] Encounter Details Date Type Department Care Team [...] PM EST Office [place] [address] Hollie Ambriz MD [facility] [place] [address] documented as of this encounter Visit Diagnoses Not on filedocumented in this encounter Care Teams Eligibility Counselor Relationship Specialty Start Date End Date Lorna Bal APRN [address] [place] [address] PCP - General Family Medicine 05/27/18 documented as of this encounter
--- OUTSIDE RECORDS SUMMARY | 2024-01-12 21:17 | XMS_ITS | Encounter Summary ---
Author Organization [facility] Address [facility] [place] [address] Care Team Providers Care Sub Arc Operator Name Role Phone ValerianoMaria G harthryn Maia HAYNES Primary Care Provider [phone] -[phone] Encounter Details Date Type Department Care Team (Late st Contact Info) Description 06/19/2022 4:45 PM EST Ancillary Procedure Radiology Library at [facility] [place] [phone] Joe Harrison MD [facility] [address] Social History Tobacco Use Types Packs/Day Years [...] PM EST Office Visit Infectious Disease at [facility] [place] [phone] Hollie Ambriz MD [facility] [place] [address] documented as of this encounter Procedures Procedure Name Priority Date/Time Associated Diagnosis Comments FILM LIBRARY STORAGE ONLY ULTRASOUND STUDY Routine 06/19/2022 4:40 PM EST documented in this encounter Results * Film Library- Storage Only Ultrasound Study (06/19/2022 4:40 PM EST) Narrative EUGENE - 06/19/2022 4:40 PM EST This exam is auto-finalizing. It's purpose is for storage only. Joe Harrison MD G FILM LIBRARY ORD ERABLES [place] documented in this encounter Visit Diagnoses Not on filedocumented in this encounter Care Teams Sub Arc Operator Relationship Specialty Start Date End Date Lorna Bal APRN [address] [place] [address] PCP - General Family Medicine 05/27/18 documented as of this encounter
--- OUTSIDE RECORDS SUMMARY | 2024-01-12 21:17 | XMS_ITS | Encounter Summary ---
Author Organization [facility] Address [facility] [place] [address] Care Team Providers Care Wire Straightening Machine Operator Name Role Phone Lorna Bal APRN Primary Care Provider +1 -[phone] Reason for Visit * Reason Comments Follow-up * Consultation (Routine) - Specialty Diagnoses / Procedures Referred By Karlo duarte Referred To Contact Dermatology Diagnoses Disorder of the skin and subcutaneous tissue, unspecified Lorna Bal APRN [address] [place] [address] [facility] [address] [place] [address] Referral ID Status Reason Start Date Expiration Date V isits Requested Visits Authorized [id number] Consult, Test & Treat [facility] PCP Updated and/or Approved 10/10/2019 10/09/2020 12 12 Encounter Details Date Type Department Care Team (Late st Contact Info) Description 10/31/2019 10:40 AM EDT Office Visit Dermatology at [facility] [address] [place] [address] Deanna Norton MD [facility] [address] [address] [employer] Social History Tobacco Use [...] y.o. female. Established pt here with her foster care worker Nely. She has a creaseon the left [...] [Transparent Dressings] Itching and Dermatitis Please use [id number] CURRENT MEDICATIONS: Current Outpatient Medications Medication Sig [...] documentation. Deanna Norton MD Section of Dermatology [facility] documented in this encounter Plan of Treatment Upcoming Encounters Date Type Department Care Team (Late st Contact Info) Description 06/02/2024 12:30 PM EST Office Visit [place] [address] Hollie Ambriz MD [facility] [place] [address] documented as of this encounter Visit Diagnoses Diagnosis Intertrigo Other specified erythematous condition documented in this encounter Care Teams Wire Straightening Machine Operator Relationship Specialty Start Date End Date Lorna Bal APRN [address] [place] [address] PCP - General Family Medicine 05/27/18 documented as of this encounter
--- OUTSIDE RECORDS SUMMARY | 2024-01-12 21:17 | XMS_ITS | Encounter Summary ---
Author Organization [facility] [place] [address] Care Team Providers Care Photoengraving Proofer Name Role Phone Lorna Bal APRN Primary Care Provider +1 -[phone] Encounter Details Date Type Department Care Team [...] PM EST Office Visit [place] [address] Hollie Ambriz MD [facility] [place] [address] documented as of this encounter Visit Diagnoses Not on filedocumented in this encounter Care Teams Photoengraving Proofer Relationship Specialty Start Date End Date Lorna Bal APRN [address] [place] [address] PCP - General Family Medicine 05/27/18 documented as of this encounter
--- OUTSIDE RECORDS SUMMARY | 2024-01-12 21:17 | XMS_ITS | Encounter Summary ---
[place] [address] Care Team Providers Care Spring Tacker Name Role Phone Lorna Bal APRN Primary Care Provider +1 -[phone] Encounter Details Date Type Department Care Team (Late st Contact Info) Description 06/19/2022 Telephone [place] [phone] Gurdeep Simmons MD [facility] DR ORTHOP[place] [address] Social History Tobacco Use Types Packs/Day Years [...] was brought to the ED today byher dietary aide as there was some concern for having perceived pain her back (patient is non-verbal).Per report, examination by providers at [facility] do not demonstrate evidence [...] The patient was evaluated by orthopaedics at [facility] (Dr. Weiss) who did [...] were answered. Gurdeep Simmons MD Orthopaedic Surgery 1973 documented in this encounter Plan of Treatment Upcoming Encounters Date Type Department Care Team (Late st Contact Info) Description 06/02/2024 12:30 PM EST Office [place] [address] Hollie Ambriz MD [facility] INFECTIOUS [place] [address] documented as of this encounter Visit Diagnoses Not on filedocumented in this encounter Care Teams Spring Tacker Relationship Specialty Start Date End Date Lorna Bal APRN [address] [place] [address] PCP - General Family Medicine 05/27/18 documented as of this encounter
--- OUTSIDE RECORDS SUMMARY | 2024-01-12 21:17 | XMS_ITS | Encounter Summary ---
Author Organization [facility] Address [facility] [place] [place] [address] Care Team Providers Care Lithographic Stripper Name Role Phone Lorna Bal APRN Primary Care Provider +1 -[phone] Encounter Details Date Type Department Care Team (Late st Contact Info) Description 06/30/2022 Orders Only [place] [phone] Sergey Keane MD [facility] INFECTIOUS [place] [address] Spinal abscess Social History Tobacco Use Types [...] PM EST Office [place] [address] Hollie Ambriz MD [facility] DR INFECTI[place] [address] documented as of this encounter Visit Diagnoses [...] documented as of this encounter Care Teams Lithographic Stripper Relationship Specialty Start Date End Date Lorna Bal APRN [address] [place] [address] PCP - General Family Medicine 05/27/18 documented as of this encounter
--- OUTSIDE RECORDS SUMMARY | 2024-01-12 21:17 | XMS_ITS | Encounter Summary ---
Author Organization Formerly [facility], Later [facility] [place] [address] Care Team Providers Care Hatch Tender Name Role Phone Lorna Bal APRN Primary Care Provider [phone] Reason for Referral * Home Health Care (Routine) - Closed Specialty Diagnoses / Procedures Referred By Contac t Referred To Contact Diagn[place] [address] [facility] & [address] [address] Referral ID Status Reason Start Date Expiration Date V isits Requested Visits Authorized [id number] Closed Consult, Test & Treat 07/09/2022 01/05/2023 999 999 Reason for Visit * Reason Comments Surgical Post Op * Auth/Cert (Routine) Specialty Diagnoses / Procedures Referred By Contac t Referred To Contact Diagnoses Spinal abscess Procedures EMERGENCY GABI Eddi Váz[place] [address] [facility] Referral ID Status Reason Start Date Expiration Date Visits Re quested Visits Authorized [id number] 1 1 Encounter Details Date Type Department Care Team (Latest Contact Info) Description 06/24/2022 2:05 PM EST - 07/09/2022 10:29 AM EDT Hospital Encounter Medical Specialites Unit Level 1 [place] [id number] Eddi Váz[place] [address] [place] [address] [place] [address] Ian Duarte MD Swenson, Rebecca [place], [place] [address] Spinal abscess; Tachycardia; Bacteremia Discharge Disposition: Home [...] Tana Shelton Patient Age: 27 y.o. Language: Greek Race: [...] your inpatient physician through the [facility] Carpenter'S Assistant . Issues afterhours and on weekends [...] however on 06/17 she was brought to [facility] by her cow trimmer for possibly increased back pain and received [...] who have questions please contact the health associate director career services that requested your imaging first. Electronically signed by: Jamaal Villafuerte [facility] ([phone]), at 06/24/2022 6:56 PM IR All Drainage [...] than 25 cc. Fluoroscopy time: Please see [facility] IR technologist record for procedural dose/time. Cefazolin/ [...] The tract was dilated, and an 8 Nigerian drain was advanced over the wire into [...] aspiration demonstrated shiraz pus, and an 8 Nigerian drain was placed using ultrasound guidance as [...] maximal sterile barrier technique was used throughout. Adult Psychiatrist fluoroscopic images were obtained. Contrast was injected [...] who have questions please contact the health associate director career services that requested your imaging first. Electronically signed by: Enid Vargas MD, [facility] ([phone]), at 07/02/2022 11:[address] Lumbar Spine [...] who have questions please contact the health associate director career services that requested your imaging first. All Drainage Procedures (Exam End: 07/04/2022 4:14 PM) Narrative Preoperative Diagnosis: re accumulated Lumbar collection by CT, Fevers Postoperative Diagnosis: Same Procedure Performed: Ultrasound and fluoroscopically guided drain placement. Operators: Mich Martino MD, Attending Estimated Blood Loss: Negligible. Fluoroscopy dose: Please see [facility] IR technologist record for procedural dose/time. Cefazolin/ [...] dilated over the wire and a 8.5 Nigerian drain was advanced over the wire into [...] who have questions please contact the health associate director career services that requested your imaging first. Electronically signed by: Nathalie Whitaker MD, [facility] ([phone]), at 07/05/2022 5:38 PM IR Site Check In Recovery Room (Exam End: 07/08/2022 10:29 AM) Narrative This exam is auto-finalizing. No interpretation was done. Pending Studies and Lab Data: None Discharge Conditions/Prognosis: Stable Discharge to: Home Updated Allergies/ADRs: Allergies Allergen Reactions ??? Fluoxetine Other (See Comments) HIVES, HEART RACES ??? Tegaderm [Transparent Dressings] Itching and Dermatitis Please use [id number] ??? Penicillins Immunizations Given this Hospitalization: Immunization History Administered Date(s) Administered ??? Influenza Vaccine (Novel) [id number], Injectable 02/25/2009 ??? Influenza Vaccine w/Preservative, Split [...] back. The number for Infectious Disease is [phone] if you have questions or do not [...] Bal PCP Office Your Inpatient Doctor(s) at [facility]: Dr. Perez - [facility] Dr. Hills and Dr. Jefferson - Infectious Disease. General Instructions [facility] Vascular and Interventional Radiology Discharge Instructions [...] is during regular office hours, please call [phone]. If it is after regular office hours, or on weekends or holidays, please call [phone] and ask to speak to the Pipe Fitter production support supervisor for Interventional Radiology. You have received medication [...] PM Lilli Joy APRN Infectious Disease at [facility] Arrive at: Home [phone] Please do not come in for this visit. Your provider will call you at the number you provided. 08/13/2022 11:30 AM Sergey Keane MD Infectious Disease at [facility] Arrive at: Child Adolescent Psychiatrist Area [phone] Future Orders Complete By Expires IR Drain Check/Change/Remove [[id number] Custom] 07/20/2022 08/06/2022 Process Instructions: Scheduling Instructions: Questions: Where will study be performed?: [facility] Radiology Reason for exam and [...] Tana Shelton for admission to Home Health. [address] [place] [address] Date of : 1995 Inpatient DOCUMENTATION FOR VNA SERVICES (INCLUDING THOSE PATIENTS WITH MEDICARE COVERAGE REQUIRING HOME VNA SERVICES AND/OR HOSPICE SERVICES) PATIENT'S LOCATION: Tana Shelton [address] [facility] [address] Cell: Telephone Information: Tape Librarian's Name: Mother/Guardian Anderson [phone] In discussion with the attending physician, it is certified that this patient is under their care and that they, or a Nurse Practitioner,Clinical Nurse specialist or Physician Net Programmer who is working directly with them, had [...] Jefferson, Dr Samuel HOME HEALTH CARE AGENCY: [facility]. [address] [place] [address] Start of care: Anticipated start of care 24-48 hours after discharge Please note that any additional orders needs or changes will need to be obtained from this patient's PCP: Lorna Bal APRN [address] [place] [address] All A agencies which cover the area of patient's residence have been reviewed, either verbally fatoumata writing, and patient/family have chosen the home health care agency noted ' Questions: Disciplines Requested: Nursing Discharge References/Attachments None documented in this encounter Discharge Instructions * Discharge Instructions* Hollie Perez MD - 06/25/2022 5:20 AM EST [facility] Vascular and Interventional Radiology Discharge Instructions [...] is during regular office hours, please call [phone]. If it is after regular office hours, or on weekends or holidays, please call [phone] and ask to speak to the Pipe Fitter production support supervisor for Interventional Radiology. You have received medication [...] back. The number for Infectious Disease is [phone] if you have questions or do not [...] Bal PCP Office Your Inpatient Doctor(s) at [facility]: Dr. Perez - [facility] Dr. Hills and Dr. Jefferson - [...] Perez MD - 07/09/2022 9:59 AM EDT [facility] - Attending Day of Discharge Documentation [...] spent >30 minutes (Day of Discharge Code 11458) involved in the final examination of the [...] cefepime vanc for 3 days at [facility] and discharged on cefpodoxime, referred [...] of care, communication with family Full code COMMUNITY AIDE, nutrition recommendations, diet regular Anticipated Disposition, PT/OT recommendations Home tomorrow Team Pager ( Coverage 17/11) [phone] PCP Lorna Bal APRN Attestation IPI Certification I certify that I am a D-H credentialed attending provider with admitting privileges and that the patient meets or has met medical necessity to require an inpatient IPI level of care meeting a minimumof two midnights or is on the [facility] inpatient only procedure list (status C) due [...] future testing is required, contact the Microbiology Repair Supervisor. * No growth at 1 day. [...] who have questions please contact the health associate director career services that requested your imaging first. Electronically signed by: Jamaal Villafuerte [facility] ([phone]), at 06/24/2022 6:56 PM XR Chest One [...] who have questions please contact the health associate director career services that requested your imaging first. Electronically signed by: Enid Vargas MD, [facility] ([phone]), at 07/02/2022 11:[address] Lumbar Spine [...] who have questions please contact the health associate director career services that requested your imaging [...] who have questions please contact the health associate director career services that requested your imaging first. Electronically signed by: Nathalie Whitaker MD, [facility] ([phone]), at 07/05/2022 5:38 PM * Chrissie Lee [...] of care, communication with family Full code COMMUNITY AIDE, nutrition recommendations, diet regular Anticipated Disposition, PT/OT recommendations Home in next 1-2 days Team Pager ( Coverage 17/11) [phone] PCP Lorna Bal APRN Attestation IPI Certification I certify that I am a D-H credentialed attending provider with admitting privileges and that the patient meets or has met medical necessity to require an inpatient IPI level of care meeting a minimumof two midnights or is on the [facility] inpatient only procedure list (status C) due [...] future testing is required, contact the Microbiology Repair Supervisor. * No growth at 1 day. [...] who have questions please contact the health associate director career services that requested your imaging first. Electronically signed by: Jamaal Villafuerte [facility] ([phone]), at 06/24/2022 6:56 PM XR Chest One [...] who have questions please contact the health associate director career services that requested your imaging first. Electronically signed by: Enid Vargas MD, [facility] ([phone]), at 07/02/2022 11:[address] Lumbar Spine [...] who have questions please contact the health associate director career services that requested your imaging [...] who have questions please contact the health associate director career services that requested your imaging first. Electronically signed by: Nathalie Whitaker MD, [facility] ([phone]), at 07/05/2022 5:38 PM * Sergey Keane MD - 07/07/2022 4:02 PM EDT Images from the original note were not included. DEPARTMENT OF INFECTIOUS DISEASE & INTERNATIONAL HEALTH INFECTIOUS DISEASE PROGRESS NOTE Reason for follow up: E coli bacteremia, Spinal collections, gluteal abscess Subjective:Case discussed during rounds with ID team and the attending Dr. Samuel Patient is seen and examined at bedside. toddler caregiver at bedside, refers she is lethargic [...] Sergey Doan MD Infectious Disease Fellow Pager [phone] 07/07/22 (Attending addendum to follow) Associated attestation [...] of care, communication with family Full code COMMUNITY AIDE, nutrition recommendations, diet regular Anticipated Disposition, PT/OT recommendations Home Team Pager ( Coverage 17/11) [phone] PCP Lorna Bal APRN Attestation IPI Certification [...] future testing is required, contact the Microbiology Repair Supervisor. * ECG: Recent Labs 07/04/22 0016 [...] who have questions please contact the health associate director career services that requested your imaging first. Electronically signed by: Jamaal Villafuerte [facility] ([phone]), at 06/24/2022 6:56 PM XR Chest One [...] who have questions please contact the health associate director career services that requested your imaging first. Electronically signed by: Enid Vargas MD, [facility] ([phone]), at 07/02/2022 11:[address] Lumbar Spine [...] who have questions please contact the health associate director career services that requested your imaging [...] who have questions please contact the health associate director career services that requested your imaging first. * Willis [...] follow peripherally. - IR follow up ordered, cigar head pegger notified. Willis Calero DO, MBA Interventional Radiology [...] and ADLs]:?Total ?? Surveillance [continuous indirect monitoring]:?? [facility] Bed alarm Room near nurses' station Rounding? [...] is still not taking PO intake, per patient care secretary have concerns for strep. No BM on [...] of care, communication with family Full code COMMUNITY AIDE, nutrition recommendations, diet regular Anticipated Disposition, PT/OT recommendations Home Team Pager ( Coverage 17/11) [phone] PCP Lorna Bal APRN Attestation IPI Certification I certify that I am a D-H credentialed attending provider with admitting privileges and that the patient meets or has met medical necessity to require an inpatient IPI level of care meeting a minimumof two midnights or is on the [facility] inpatient only procedure list (status C) due [...] who have questions please contact the health associate director career services that requested your imaging first. Electronically signed by: Jamaal Villafuerte [facility] ([phone]), at 06/24/2022 6:56 PM XR Chest One [...] who have questions please contact the health associate director career services that requested your imaging first. Electronically signed by: Enid Vargas MD, [facility] ([phone]), at 07/02/2022 11:[address] Lumbar Spine [...] who have questions please contact the health associate director career services that requested your imaging [...] and ADLs]:?Total ?? Surveillance [continuous indirect monitoring]:?? [facility] Bed alarm Room near nurses' station Rounding? [...] of : 1995 AGE: 27 y.o. Address: [address] [place] [address] Phone: [phone] (home) Mobile: Telephone Information: Referring Provider: Lorna [...] [Transparent Dressings] Itching and Dermatitis Please use [id number] ??? Penicillins Pertinent PMH: Patient Active Problem [...] Sergey Doan MD Infectious Disease Fellow Pager [phone] 07/04/22 (Attending addendum to follow) Associated attestation [...] spiking fevers now. -Discussed with infectious disease sap treasury consultant. Patient will get a repeat aspiration [...] of care, communication with family Full code COMMUNITY AIDE, nutrition recommendations, diet regular Anticipated Disposition, PT/OT recommendations Home Team Pager ( Coverage 17/11) [phone] PCP Lorna Bal APRN Attestation IPI Certification I certify that I am a D-H credentialed attending provider with admitting privileges and that the patient meets or has met medical necessity to require an inpatient IPI level of care meeting a minimumof two midnights or is on the [facility] inpatient only procedure list (status C) due [...] who have questions please contact the health associate director career services that requested your imaging first. Electronically signed by: Jamaal Villafuerte [facility] ([phone]), at 06/24/2022 6:56 PM XR Chest One [...] who have questions please contact the health associate director career services that requested your imaging first. Electronically signed by: Enid Vargas MD, [facility] ([phone]), at 07/02/2022 11:[address] Lumbar Spine [...] who have questions please contact the health associate director career services that requested your imaging [...] Clinical Pharmacist Note - VancFD Tana Shelton [id number] 1995 Tana Shelton is a 27 y.o. [...] have. Alternately,during off-hours (9p-) you may call [phone] to contact a pharmacist. Lilli Hughes RPH [...] of care, communication with family Full code COMMUNITY AIDE, nutrition recommendations, diet regular Anticipated Disposition, PT/OT recommendations Home Team Pager (MD Coverage 17/11) [phone] PCP Lorna Bal APRN Attestation IPI Certification I certify that I am a D-H credentialed attending provider with admitting privileges and that the patient meets or has met medical necessity to require an inpatient IPI level of care meeting a minimumof two midnights or is on the [facility] inpatient only procedure list (status C) due [...] change was found Confirmed by Lyndon Lafleur ([id number]) on 07/02/2022 5:10:53 PM QTCCALC 443 VASCULAR: [...] who have questions please contact the health associate director career services that requested your imaging first. Electronically signed by: Jamaal Villafuerte, [facility] ([phone]), at 06/24/2022 6:56 PM XR Chest One [...] who have questions please contact the health associate director career services that requested your imaging first. Electronically signed by: Enid Vargas MD, [facility] ([phone]), at 07/02/2022 11:26 PM * Nury Torres [...] of care, communication with family Full code COMMUNITY AIDE, nutrition recommendations, diet regular Anticipated Disposition, PT/OT recommendations Home Team Pager ( Coverage 17/11) [phone] PCP Lorna Bal APRN Attestation IPI Certification I certify that I am a D-H credentialed attending provider with admitting privileges and that the patient meets or has met medical necessity to require an inpatient IPI level of care meeting a minimumof two midnights or is on the [facility] inpatient only procedure list (status C) due [...] who have questions please contact the health associate director career services that requested your imaging first. Electronically signed by: Jamaal Villafuerte [facility] ([phone]), at 06/24/2022 6:56 PM * Karrie Smallwood - 07/02/2022 12:21 PM EST Nutrition Services Note - Low Nutrition Acuity Tana Shelton is a 27 y.o. female Reason for intervention: hospital day 9 Nutrition Plan: Continue current diet. Encourage good PO intake. Multivitamin with minerals noted. Monitor weight. Patient screened for hospital length of stay. Household Appliance Assembler communicated with RN by secure chat and primary patient care secretary by phone. Per primary caregiver, patient has [...] weeks ago, where patient weighed 108 lbs. Household Appliance Assembler recommends an updated weight on patient to [...] unless consulted in the interim. ALEJANDRO Osei [phone] * Emeka Zavala MD - 07/02/2022 7:47 [...] of care, communication with family Full code COMMUNITY AIDE, nutrition recommendations, diet regular Anticipated Disposition, PT/OT recommendations Home Team Pager ( Coverage 17/11) [phone] PCP Lorna Bal APRN Attestation IPI Certification [...] Lateral leads Confirmed by MD Shabazz Danette ([id number]) on 06/29/2022 9:49:48 PM QTCCALC 458 VASCULAR: [...] who have questions please contact the health associate director career services that requested your imaging first. Electronically signed by: Jamaal Villafuerte [facility] ([phone]), at 06/24/2022 6:56 PM * Tegan Snyder RN - 07/01/2022 11:44 AM EST [facility] NURSING DATABASE Name: Tana Shelton Date of : 1995 AGE: 27 y.o. Address: [address] [place] [address] Phone: [phone] (home) Mobile: Telephone Information: Referring Provider: Lorna [...] [Transparent Dressings] Itching and Dermatitis Please use [id number] ??? Penicillins Pertinent PMH: Patient Active Problem [...] Patient Name: Tana Shelton : 1995 MR#: [id number] Received contact from primary team regarding drain [...] Sergey Doan MD Infectious Disease Fellow Pager [phone] 06/30/22 (Attending addendum to follow) Associated attestation [...] of care, communication with family Full code COMMUNITY AIDE, nutrition recommendations, diet regular Anticipated Disposition, PT/OT recommendations Home Team Pager ( Coverage 17/11) [phone] PCP Lorna Bal APRN Attestation IPI Certification I certify that I am a D-H credentialed attending provider with admitting privileges and that the patient meets or has met medical necessity to require an inpatient IPI level of care meeting a minimumof two midnights or is on the [facility] inpatient only procedure list (status C) due [...] Lateral leads Confirmed by MD Mele, Luba ([id number]) on 06/29/2022 9:49:48 PM QTCCALC 458 VASCULAR: [...] who have questions please contact the health associate director career services that requested your imaging first. Electronically signed by: Jamaal Villafuerte [facility] ([phone]), at 06/24/2022 6:56 PM * Estevan Alfaro [...] of care, communication with family Full code COMMUNITY AIDE, nutrition recommendations, diet regular Anticipated Disposition, PT/OT recommendations Home Team Pager ( Coverage 17/11) [phone] PCP Lorna Bal APRN Attestation IPI Certification I certify that I am a D-H credentialed attending provider with admitting privileges and that the patient meets or has met medical necessity to require an inpatient IPI level of care meeting a minimumof two midnights or is on the [facility] inpatient only procedure list (status C) due [...] who have questions please contact the health associate director career services that requested your imaging first. Electronically signed by: Jamaal Villafuerte [facility] ([phone]), at 06/24/2022 6:56 PM * Edvin Looney [...] of care, communication with family Full code COMMUNITY AIDE, nutrition recommendations, diet regular Anticipated Disposition, PT/OT recommendations Home Team Pager ( Coverage 17/11) [phone] PCP Lorna Bal APRN Attestation IPI Certification I certify that I am a D-H credentialed attending provider with admitting privileges and that the patient meets or has met medical necessity to require an inpatient IPI level of care meeting a minimumof two midnights or is on the [facility] inpatient only procedure list (status C) due [...] who have questions please contact the health associate director career services that requested your imaging first. Electronically signed by: Jamaal Villafuerte [facility] ([phone]), at 06/24/2022 6:56 PM * Anurag Call DO - 06/27/2022 6:20 PM EST HOSPITAL MEDICINE ATTENDING DAILY PROGRESS NOTE Patient Tana Shelton 1995 [id number] Physician Anurag Call DO Pager [phone] Encounter Date June 27, 2022 Admit Date 06/24/2022 Hospital Day 3 PCP Lorna Bal, FINISHING OPERATOR [phone] ASSESSMENT/PLAN: Active Hospital Problems Diagnosis ??? Spinal [...] minimumof two midnights or is on the [facility] inpatient only procedure list (status C) due [...] Zhanna Garrett - 06/26/2022 7:15 PM EST Airline Customer Service Agent Encounter Note Patient Name: Tana Shelton : [id number] MR#: [id number] Admit Date: 06/24/2022 2:05 PM Hospital Day [...] Tana's mom would be coming back from [place] until the hospital knows what next stepsare. Fannie stated that she was so glad she got Tana to [facility], as the smaller hospitals were dissmissing and [...] Call DO - 06/26/2022 4:51 PM EST [facility] MEDICINE ATTENDING DAILY PROGRESS NOTE Patient Tana Shelton 1995 [id number] Physician Anurag Call DO Pager [phone] Encounter Date June 26, 2022 Admit Date 06/24/2022 Hospital Day 2 PCP Lorna Bal, FINISHING OPERATOR [phone] ASSESSMENT/PLAN: Active Hospital Problems Diagnosis ??? Spinal [...] minimumof two midnights or is on the [facility] inpatient only procedure list (status C) due [...] DAILY PROGRESS NOTE Patient Tana Shelton 1995 [id number] Physician Anurag Call DO Pager [phone] Encounter Date June 25, 2022 Admit Date 06/24/2022 Hospital Day 1 PCP Lorna Bal, FINISHING OPERATOR [phone] ASSESSMENT/PLAN: Active Hospital Problems Diagnosis ??? Spinal [...] data in the 24 hours ending 06/25/22 4917 GEN: awake, alert, NAD HEENT: PERRLA, EOMI, [...] who have questions please contact the health associate director career services that requested your imaging first. Electronically signed by: Jamaal Villafuerte [facility] ([phone]), at 06/24/2022 6:56 PM CONSULTANTS: IP ADMISSION [...] minimumof two midnights or is on the [facility] inpatient only procedure list (status C) due to: Possible spinal abscess with involvement of previous placed hardware Anurag Call DO [phone] Hospitalist 06/25/2022 5:37 PM * Gadiel Morris RN - 06/25/2022 4:19 PM EST ANGIO NURSING DATABASE Name: Tana Shelton Date of : 1995 AGE: 27 y.o. Address: [address] [place] [address] (home) Mobile: Telephone Information: Referring Provider: Lorna [...] [Transparent Dressings] Itching and Dermatitis Please use [id number] ??? Penicillins Pertinent PMH: Patient Active Problem [...] All Drainage Procedures 06/25/2022 Mich Martino MD [facility] INTERVENTIONL RAD ??? IR DRAIN CHECK/CHANGE/REMOVE 07/01/2022 IR Drain Check/Change/Remove 07/01/2022 Jamaal Jenkins, DO [facility] INTERVENTIONL RAD ??? PRO APPLY OF HIP CASTS, TWO LEGS 08/15/2010 CAST APPLICATION, HIP SPICA, BOTH LEGS performed by BARRERA OLIVER at [facility] MAIN OR ? ? PRO I&D, POST SPINE, LUMB/SACR/LUMBOSAC N/A 05/20/2014 @I & D, OPEN, DEEP ABSCESS, LUMBAR, SACRAL, LUMBOSACRAL performed by Freddy Isbell MD at [facility] MAIN OR ? ? PRO I&D, POST SPINE, LUMB/SACR/LUMBOSAC N/A 05/26/2014 @I & D, OPEN, DEEP ABSCESS, LUMBAR, SACRAL, LUMBOSACRAL performed by Freddy Isbell MD at [facility] MAIN OR ??? PRO IMPACT TOOTH REMOV COMP BONY N/A 06/14/2018 SURGICAL EXTRACTIONS, REMOVAL OF IMPACTED TOOTH, COMPLETELY BONY (WRVU 1.93) performed by Keith Cotton MD at [facility] OSC ??? PRO OSTEOTOMY FEMUR SHAFT/SUPRACONDY 08/15/2010 ??OSTEOTOMY, FEMUR SHAFT OR SUPRACONDYLAR W/O FIXATION performed by BARRERA OLIVER at [facility] MAIN OR ??? PRO RECONSTRUC HIP SOCKET, RESEC FEM HEAD 08/15/2010 ??ACETABULOPLASTY (GIRDLESTONE), RESECTION FEMORAL HEAD, BILATERAL performed by BARRERA OLIVER [facility] MAIN OR ??? PRO REMOVAL DEEP IMPLANT 08/15/2010 REMOVAL IMPLANT, DEEP, BRUNO performed by BARRERA OLIVER at [facility] MAIN OR ??? PRO REMOVAL ERUPTED TOOTH WITH ELEVATION OF MUCOPERIOSTEAL FLAP N/A 06/14/2018 SURGICAL EXTRACTIONS REQUIRING ELEVATION OF MUCOPERIOSTEAL FLAP AND REMOVAL OF BONE OR SECTION OF TOOTH (WRVU 1.09) performed by Keith Cotton MD at [facility] OSC ??? PRO REMOVE INFUSN DEVICE/PUMP N/A 05/11/2014 REMOVAL OF SPINE INFUSION PUMP performed by Jamaal Samuel MD at [facility] MAIN OR ??? PRO REMOVE SPINAL CANAL CATHETER N/A 05/11/2014 REMOVAL OF INTRATHECAL OR EPIDURAL CATHETER performed by Jamaal Samuel MD at [facility] MAIN OR ??? PRO REPR, DURAL/CSF LEAK, NOT REQ LAMINECTOMY N/A 05/20/2014 @REPAIR DURAL\CSF LEAK,NOT REQUIRING LAMINECTOMY performed by Freddy Isbell MD at [facility] MAIN OR Social History and [...] of procedure) 07/04/2022 Chrissie Lee PA-C * [place], DEMI Torres - 07/01/2022 9:39 AM EST [...] All Drainage Procedures 06/25/2022 Mich Martino MD [facility] INTERVENTIONL RAD ??? PRO APPLY OF HIP CASTS, TWO LEGS 08/15/2010 CAST APPLICATION, HIP SPICA, BOTH LEGS performed by BARRERA OLIVER at [facility] MAIN OR ? ? PRO I&D, POST SPINE, LUMB/SACR/LUMBOSAC N/A 05/20/2014 @I & D, OPEN, DEEP ABSCESS, LUMBAR, SACRAL, LUMBOSACRAL performed by Freddy Isbell MD at [facility] MAIN OR ? ? PRO I&D, POST SPINE, LUMB/SACR/LUMBOSAC N/A 05/26/2014 @I & D, OPEN, DEEP ABSCESS, LUMBAR, SACRAL, LUMBOSACRAL performed by Ferddy Isbell MD at [facility] MAIN OR ??? PRO IMPACT TOOTH REMOV COMP BONY N/A 06/14/2018 SURGICAL EXTRACTIONS, REMOVAL OF IMPACTED TOOTH, COMPLETELY BONY (WRVU 1.93) performed by Keith Cotton MD at [facility] OSC ??? PRO OSTEOTOMY FEMUR SHAFT/SUPRACONDY 08/15/2010 ??OSTEOTOMY, FEMUR SHAFT OR SUPRACONDYLAR W/O FIXATION performed by BARRERA OLIVER at [facility] MAIN OR ??? PRO RECONSTRUC HIP SOCKET, RESEC FEM HEAD 08/15/2010 ??ACETABULOPLASTY (GIRDLESTONE), RESECTION FEMORAL HEAD, BILATERAL performed by BARRERA OLIVER [facility] OR ??? PRO REMOVAL DEEP IMPLANT 08/15/2010 REMOVAL IMPLANT, DEEP, BRUNO performed by BARRERA OLIVER at [facility] MAIN OR ??? PRO REMOVAL ERUPTED TOOTH WITH ELEVATION OF MUCOPERIOSTEAL FLAP N/A 06/14/2018 SURGICAL EXTRACTIONS REQUIRING ELEVATION OF MUCOPERIOSTEAL FLAP AND REMOVAL OF BONE OR SECTION OF TOOTH (WRVU 1.09) performed by Keith Cotton MD at [facility] OSC ??? PRO REMOVE INFUSN DEVICE/PUMP N/A 05/11/2014 REMOVAL OF SPINE INFUSION PUMP performed by Jamaal Samuel MD at [facility] OR ??? PRO REMOVE SPINAL CANAL CATHETER N/A 05/11/2014 REMOVAL OF INTRATHECAL OR EPIDURAL CATHETER performed by Jamaal Samuel MD at [facility] OR ??? PRO REPR, DURAL/CSF LEAK, NOT REQ LAMINECTOMY N/A 05/20/2014 @REPAIR DURAL\CSF LEAK,NOT REQUIRING LAMINECTOMY performed by Freddy Isbell MD at [facility] OR Social History and Habits: [...] Tegaderms. S. Gómez Ellison MD PGY-2 Pager #[phone] Department of Radiology [facility] 06/25/2022 Source Note - Hank Nunez PA [...] BOTH LEGS performed by BARRERA OLIVER at [facility] MAIN OR ? ? PRO I&D, POST SPINE, LUMB/SACR/LUMBOSAC N/A 05/20/2014 @I & D, OPEN, DEEP ABSCESS, LUMBAR, SACRAL, LUMBOSACRAL performed by Freddy Isbell MD at [facility] MAIN OR ? ? PRO I&D, POST SPINE, LUMB/SACR/LUMBOSAC N/A 05/26/2014 @I & D, OPEN, DEEP ABSCESS, LUMBAR, SACRAL, LUMBOSACRAL performed by Freddy Isbell MD at [facility] MAIN OR ??? PRO IMPACT TOOTH REMOV COMP BONY N/A 06/14/2018 SURGICAL EXTRACTIONS, REMOVAL OF IMPACTED TOOTH, COMPLETELY BONY (WRVU 1.93) performed by Keith Cotton MD at [facility] OSC ??? PRO OSTEOTOMY FEMUR SHAFT/SUPRACONDY 08/15/2010 ??OSTEOTOMY, FEMUR SHAFT OR SUPRACONDYLAR W/O FIXATION performed by BARRERA OLIVER at [facility] MAIN OR ??? PRO RECONSTRUC HIP SOCKET, RESEC FEM HEAD 08/15/2010 ??ACETABULOPLASTY (GIRDLESTONE), RESECTION FEMORAL HEAD, BILATERAL performed by BARRERA OLIVER [facility] MAIN OR ??? PRO REMOVAL DEEP IMPLANT 08/15/2010 REMOVAL IMPLANT, DEEP, BRUNO performed by BARRERA OLIVER at [facility] MAIN OR ??? PRO REMOVAL ERUPTED TOOTH WITH ELEVATION OF MUCOPERIOSTEAL FLAP N/A 06/14/2018 SURGICAL EXTRACTIONS REQUIRING ELEVATION OF MUCOPERIOSTEAL FLAP AND REMOVAL OF BONE OR SECTION OF TOOTH (WRVU 1.09) performed by Keith Cotton MD at [facility] OSC ??? PRO REMOVE INFUSN DEVICE/PUMP N/A 05/11/2014 REMOVAL OF SPINE INFUSION PUMP performed by Jamaal Samuel MD at [facility] MAIN OR ??? PRO REMOVE SPINAL CANAL CATHETER N/A 05/11/2014 REMOVAL OF INTRATHECAL OR EPIDURAL CATHETER performed by Jamaal Samuel MD at [facility] MAIN OR ??? PRO REPR, DURAL/CSF LEAK, NOT REQ LAMINECTOMY N/A 05/20/2014 @REPAIR DURAL\CSF LEAK,NOT REQUIRING LAMINECTOMY performed by Freddy Isbell MD at [facility] MAIN OR Social history and habits: [...] BOTH LEGS performed by BARRERA OLIVER at [facility] MAIN OR ? ? PRO I&D, POST SPINE, LUMB/SACR/LUMBOSAC N/A 05/20/2014 @I & D, OPEN, DEEP ABSCESS, LUMBAR, SACRAL, LUMBOSACRAL performed by Freddy Isbell MD at [facility] MAIN OR ? ? PRO I&D, POST SPINE, LUMB/SACR/LUMBOSAC N/A 05/26/2014 @I & D, OPEN, DEEP ABSCESS, LUMBAR, SACRAL, LUMBOSACRAL performed by Freddy Isbell MD at [facility] MAIN OR ??? PRO IMPACT TOOTH REMOV COMP BONY N/A 06/14/2018 SURGICAL EXTRACTIONS, REMOVAL OF IMPACTED TOOTH, COMPLETELY BONY (WRVU 1.93) performed by Keith Cotton MD at [facility] OSC ??? PRO OSTEOTOMY FEMUR SHAFT/SUPRACONDY 08/15/2010 ??OSTEOTOMY, FEMUR SHAFT OR SUPRACONDYLAR W/O FIXATION performed by BARRERA OLIVER at [facility] MAIN OR ??? PRO RECONSTRUC HIP SOCKET, RESEC FEM HEAD 08/15/2010 ??ACETABULOPLASTY (GIRDLESTONE), RESECTION FEMORAL HEAD, BILATERAL performed by BARRERA OLIVER [facility] OR ??? PRO REMOVAL DEEP IMPLANT 08/15/2010 REMOVAL IMPLANT, DEEP, BRUNO performed by BARRERA OLIVER at [facility] OR ??? PRO REMOVAL ERUPTED TOOTH WITH ELEVATION OF MUCOPERIOSTEAL FLAP N/A 06/14/2018 SURGICAL EXTRACTIONS REQUIRING ELEVATION OF MUCOPERIOSTEAL FLAP AND REMOVAL OF BONE OR SECTION OF TOOTH (WRVU 1.09) performed by Keith Cotton MD at [facility] OSC ??? PRO REMOVE INFUSN DEVICE/PUMP N/A 05/11/2014 REMOVAL OF SPINE INFUSION PUMP performed by Jamaal Samuel MD at [facility] OR ??? PRO REMOVE SPINAL CANAL CATHETER N/A 05/11/2014 REMOVAL OF INTRATHECAL OR EPIDURAL CATHETER performed by Jamaal Samuel MD at [facility] OR ??? PRO REPR, DURAL/CSF LEAK, NOT REQ LAMINECTOMY N/A 05/20/2014 @REPAIR DURAL\CSF LEAK,NOT REQUIRING LAMINECTOMY performed by Freddy Isbell MD at [facility] OR Social history and habits: [...] quadriplegia ID: 27 y.o. Female presents to [facility] with redness and drainage from midline surgical [...] however on 06/17 she was brought to [facility] by her cow trimmer for possibly increased back pain and received [...] BOTH LEGS performed by BARRERA OLIVER at [facility] MAIN OR ? ? PRO I&D, POST SPINE, LUMB/SACR/LUMBOSAC N/A 05/20/2014 @I & D, OPEN, DEEP ABSCESS, LUMBAR, SACRAL, LUMBOSACRAL performed by Freddy Isbell MD at [facility] MAIN OR ? ? PRO I&D, POST SPINE, LUMB/SACR/LUMBOSAC N/A 05/26/2014 @I & D, OPEN, DEEP ABSCESS, LUMBAR, SACRAL, LUMBOSACRAL performed by Freddy Isbell MD at [facility] MAIN OR ??? PRO IMPACT TOOTH REMOV COMP BONY N/A 06/14/2018 SURGICAL EXTRACTIONS, REMOVAL OF IMPACTED TOOTH, COMPLETELY BONY (WRVU 1.93) performed by Keith Cotton MD at [facility] OSC ??? PRO OSTEOTOMY FEMUR SHAFT/SUPRACONDY 08/15/2010 ??OSTEOTOMY, FEMUR SHAFT OR SUPRACONDYLAR W/O FIXATION performed by BARRERA OLIVER at [facility] MAIN OR ??? PRO RECONSTRUC HIP SOCKET, RESEC FEM HEAD 08/15/2010 ??ACETABULOPLASTY (GIRDLESTONE), RESECTION FEMORAL HEAD, BILATERAL performed by BARRERA OLIVER [facility] MAIN OR ??? PRO REMOVAL DEEP IMPLANT 08/15/2010 REMOVAL IMPLANT, DEEP, BRUNO performed by BARRERA OLIVER at [facility] MAIN OR ??? PRO REMOVAL ERUPTED TOOTH WITH ELEVATION OF MUCOPERIOSTEAL FLAP N/A 06/14/2018 SURGICAL EXTRACTIONS REQUIRING ELEVATION OF MUCOPERIOSTEAL FLAP AND REMOVAL OF BONE OR SECTION OF TOOTH (WRVU 1.09) performed by Keith Cotton MD at [facility] OSC ??? PRO REMOVE INFUSN DEVICE/PUMP N/A 05/11/2014 REMOVAL OF SPINE INFUSION PUMP performed by Jamaal Samuel MD at [facility] MAIN OR ??? PRO REMOVE SPINAL CANAL CATHETER N/A 05/11/2014 REMOVAL OF INTRATHECAL OR EPIDURAL CATHETER performed by Jamaal Samuel MD at [facility] MAIN OR ??? PRO REPR, DURAL/CSF LEAK, NOT REQ LAMINECTOMY N/A 05/20/2014 @REPAIR DURAL\CSF LEAK,NOT REQUIRING LAMINECTOMY performed by Freddy Isbell MD at [facility] MAIN OR Prior To Admission Medications: (Not in a hospital admission) Allergies: Allergies Allergen Reactions ??? Fluoxetine Other (See Comments) HIVES, HEART RACES ??? Tegaderm [Transparent Dressings] Itching and Dermatitis Please use [id number] ??? Penicillins Family History: Family History Problem [...] Administered Date(s) Administered ??? Influenza Vaccine (Novel) [id number], Injectable 02/25/2009 ??? Influenza Vaccine w/Preservative, Split [...] improvement in thecellulitis. Tana was brought [facility] on 06/17/2022 by her cow trimmer as there was some concern for having perceived pain her back (patient is non-verbal). Patient was hospitalized for IV antibiotic treatment of a presumed cellulitis. examination by providers at [facility] did not not preceded evidence [...] to discharge Dr. Simmons from orthopedics at [facility] once consulted. Per his note on 06/19/2022 [...] be progressing again since her discharge from [facility] on 06/19/2020. Patient hasbeen afebrile with [...] did the previous consult note from [facility]. Spoke with orthopedics who are [...] 2046: Orthopedics were able to reach their content production specialist and will evaluate patient. Plan based [...] who have questions please contact the health associate director career services that requested your imaging first. Electronically signed by: Jamaal Villafuerte [facility] ([phone]), at 06/24/2022 6:56 PM Assessment and Plan: 27 y.o. female with history of spastic quadriplegia CP, scoliosis, prior bilateral Girdlestone's who was recently discharged home on 06/19/2021 from [facility] where she received IV antibiotics for [...] information for follow-up [facility], [facility] [address] [place] [address] Transportation: family or friend will provide *Mother [...] agreement with plan. Phyllis Abraham RN, BSN Bacteriologist [facility] Office of Care Management Office: Pager: [phone] * Plan of Care - Jigna Neal [...] 07/06/2022 6:03 PM EDT Called to see aTna by bedside RN for hypotension, BP 71/40 [...] yesterday morning Please call with any questions #[phone] Jean-Pierre Godinez RN * Consult Note - Vi Lawrence [facility] - 07/05/2022 8:27 AM EST ?? The [...] Alternately, during off-hours you comfort mason call [phone] to contact a pharmacist. * Care Management [...] Agency/Support Group Needs: Homecare agency Agency Referrals: [facility] following for DC needs and possible acceptance. Transportation: family or friend will provide Barriers to discharge: Discharge planning Plan going forward: Repeat CT lumbar spine today due to recurrent low grade fevers Care Management will continue to follow and assist with discharge planning and coordination of care as indicated. Anticipated Date of Discharge: 07/07/2022 Phyllis Abraham RN, BSN Bacteriologist [facility] Office of Care Management Office: Pager: [phone] * Care Management - Amy Trejo RN [...] Agency Referrals: I have met with the internet sales representative (anderson) to: ?? discuss discharge planning needs. ?? provide the [facility], Office of Care Management letter from the [facility] pertaining to rehabreferrals. ?? provide a letter describing our affiliations within the [facility] and educate about their right to choose where referrals are sent. ?? provide a list of Home Health Agencies / Durable Medical Equipment vendors which serve their preferred geographic area. ?? provided patient with CMS Star Quality Rating handout. They have requested referrals to: [facility]. [address] [place] [id number] Note routed to a Architecture Instructor who will communicate referrals to facilities and [...] Date of Discharge: 07/03/2022 Amy Trejo RN, Pager-[phone] * Plan of Care - Katherine Ryan RN - 07/02/2022 4:51 PM EST OUTCOME EVALUATION NOTE: OUTCOME SUMMARY: Alert on RA, assessment as documented. Does not appear to be in pain. LR 500cc bolus fo SBP 94 increased to 110. HR remain tachy to low 100s. Cont LR discontinued. [facility]ed for UA sample. CXR obtained. High temp [...] On 06/17 she was seen at [facility] due to increased back pain [...] with you. Please call with questions, pager [phone]. Discussed with attending, Dr. Brown Tee MD [...] is possible that her prior antibiotics at [facility] have made cultures less sensitive. * Plan of Care - Piter Magaña RN - 06/28/2022 5:15 AM EST OUTCOME EVALUATION NOTE: OUTCOME SUMMARY: Patient has been sleeping intermittently throughout the night. VSS. Mom remains atthe bedside and is attentive to patient. Continues on tele. HR noted to sustain in the 120's-130's.Tele showed ST. All other VSS. Patient asymptomatic. MD ([id number]) made aware and ordered 500 ml bolus [...] caregiver @ bedside * Initial Assessments - Alcija Franklin RN - 06/25/2022 11:11 AM ESTSummary: [...] lift device [place] [facility] [place] [address] Social & Family Supports: All names listed below confirmed with patient as current and correct Extended Emergency Contact Information Primary Emergency Contact: Anderson Thorpe [facility] Mobile Relation: Mother Secondary Emergency Contact: Jose MartinCurt [facility] Mobile Relation: Step parent Current [...] Insurance: N/A Prescription Coverage: Yes Preferred Pharmacy: [facility] [address] [place] [address] [address] [facility] - [place], [place] - [address] [facility] [address] [facility] [address] [facility] [address] - [place], [place] - [address] [facility] [address] [facility] [address] Status: Patient is a : No Primary Care Provider confirmed: Lorna Bal, FINISHING OPERATOR [phone] Patient/Caregiver Goals of Treatment: Caregiver anticipates return [...] of care planning. Alicja Franklin RN, BSN director of manufacturing Office of Care Management Pager: [phone] * Consult Note - Piter Palmer MD [...] in years. Patient was originally seen at [facility] where an ultrasound performed demonstrating a small fluid collection in the subcutaneous tissue. Patient was admitted for 2 days at [facility] for IV antibiotics and then ultimately transitioned to p.o. antibiotics on discharge. Patient presents to the [facility] today for persistent erythema despite antibiotic [...] BOTH LEGS performed by BARRERA OLIVER at [facility] MAIN OR ? ? PRO I&D, POST SPINE, LUMB/SACR/LUMBOSAC N/A 05/20/2014 @I & D, OPEN, DEEP ABSCESS, LUMBAR, SACRAL, LUMBOSACRAL performed by Freddy Isbell MD at [facility] MAIN OR ? ? PRO I&D, POST SPINE, LUMB/SACR/LUMBOSAC N/A 05/26/2014 @I & D, OPEN, DEEP ABSCESS, LUMBAR, SACRAL, LUMBOSACRAL performed by Freddy Isbell MD at [facility] MAIN OR ??? PRO IMPACT TOOTH REMOV COMP BONY N/A 06/14/2018 SURGICAL EXTRACTIONS, REMOVAL OF IMPACTED TOOTH, COMPLETELY BONY (WRVU 1.93) performed by Keith Cotton MD at [facility] OSC ??? PRO OSTEOTOMY FEMUR SHAFT/SUPRACONDY 08/15/2010 ??OSTEOTOMY, FEMUR SHAFT OR SUPRACONDYLAR W/O FIXATION performed by BARRERA OLIVER at [facility] MAIN OR ??? PRO RECONSTRUC HIP SOCKET, RESEC FEM HEAD 08/15/2010 ??ACETABULOPLASTY (GIRDLESTONE), RESECTION FEMORAL HEAD, BILATERAL performed by BARRERA OLIVER [facility] OR ??? PRO REMOVAL DEEP IMPLANT 08/15/2010 REMOVAL IMPLANT, DEEP, BRUNO performed by BARRERA OLIVER at [facility] MAIN OR ??? PRO REMOVAL ERUPTED TOOTH WITH ELEVATION OF MUCOPERIOSTEAL FLAP N/A 06/14/2018 SURGICAL EXTRACTIONS REQUIRING ELEVATION OF MUCOPERIOSTEAL FLAP AND REMOVAL OF BONE OR SECTION OF TOOTH (WRVU 1.09) performed by Keith Cotton MD at [facility] OSC ??? PRO REMOVE INFUSN DEVICE/PUMP N/A 05/11/2014 REMOVAL OF SPINE INFUSION PUMP performed by Jamaal Samuel MD at [facility] OR ??? PRO REMOVE SPINAL CANAL CATHETER N/A 05/11/2014 REMOVAL OF INTRATHECAL OR EPIDURAL CATHETER performed by Jamaal Samuel MD at [facility] OR ??? PRO REPR, DURAL/CSF LEAK, NOT REQ LAMINECTOMY N/A 05/20/2014 @REPAIR DURAL\CSF LEAK,NOT REQUIRING LAMINECTOMY performed by Freddy Isbell MD at [facility] OR Home Medications: (Not in a hospital admission) Allergies: Allergies Allergen Reactions ??? Fluoxetine Other (See Comments) HIVES, HEART RACES ??? Tegaderm [Transparent Dressings] Itching and Dermatitis Please use [id number] ??? Penicillins Current Medications: No current facility-administered [...] possible poor wound healing. Joe Harrison MD [facility] - Department of Orthopaedic Surgery Dumper - Department of Orthopedic Surgery / Academics and Research Reel Tender Professor - [facility] 06/25/2022 * Consult Note - Kelvin Munson, [facility] - 06/24/2022 9:44 PM EST TelePharmacy Home Medication List Update for Medication Reconciliation 06/24/22 9:45 PM Tana Shelton 1995 Allergies Allergen Reactions ??? Fluoxetine Other (See Comments) HIVES, HEART RACES ??? Tegaderm [Transparent Dressings] Itching and Dermatitis Please use [id number] ??? Penicillins ??? Person Interviewed: adult cow trimmer ??? Quality of Interview/accuracy of medication list: [...] PM EST Office [place] [address] [facility] [place] [address] Scheduled Referrals Name Type Priority Associated Diagnoses [...] 3:55 AM EDT) Neutrophil % 51.7 % [facility] Neutrophil Absolute 3.50 1.70 - 6.10 x10(3)/mc L [facility] Lymph % 39.1 % [facility] Lymphocytes Abs 2.6 0.9 - 3.2 x10(3)/mc L [facility] Monocyte % 5.9 % [facility] Monocyte Abs 0.4 0.3 - 0.9 x10(3)/mc L [facility] Eos % 1.5 % [facility] Eosinophils Abs 0.1 0.0 - 0.4 x10(3)/mc L [facility] Basophil % 0.6 % [facility] Baso Absolute 0.0 0.0 - 0.1 x10(3)/mc L [facility] Immature Gran % 1.20 % [facility] Comment: Immature granulocytes(IG's)percentage and absolute count will include metamyelocytes, myelocytes, and promyelocytes. Blood smears from CBCs yielding IG's will be scanned manually for concordance. If this scan disagrees with the automated IG or if promyelocytes are noted, a manual differential will be performed. Immature Gran Absolute 0.08(H) 0.00 - 0.04 x10(3)/mc L [facility] Blood 07/09/2022 3:55 AM EDT 07/09/2022 4:02 AM EDT Narrative Resulting Agency Comment Spec In Lab Hollie Perez MD HEMATOLOGY ORDERABL ES [facility] [place] [address] * (ABNORMAL) Hemogram (07/09/2022 3:55 AM EDT) White Blood Cell 6.8 4.0 - 9.5 x10(3)/mc L [facility] Red Blood Cell 3.54(L) 4.00 - 5.21 x10(6)/mc L [facility] Hemoglobin 8.8(L) 11.7 - 15.5 g/dL [facility] Hematocrit 28.1(L) 35.7 - 45.8 % [facility] Mean Cell Volume 79.4(L) 82.6 - 94.4 fL [facility] Mean Cell Hemoglobin 24.9(L) 27.1 - 32.0 pg [facility] Mean Cell Hemoglobin Concentration 31.3(L) 31.7 - 35.0 g/dL [facility] Platelet 386(H) 145 - 357 x10(3)/mc L [facility] RDW Standard Deviation 57.2(H) 37.0 - 46.0 fL [facility] RDW coefficient of variation 20.9(H) 11.5 - 14.1 % [facility] Mean Platelet Volume 9.4 7.6 - 12.9 fL [facility] NRBC% auto 0.0 % [facility] NRBC Absolute 0.000 0.000 - 0.000 x10(3)/mc L [facility] Blood 07/09/2022 3:55 AM EDT 07/09/2022 4:02 AM EDT Narrative Resulting Agency Comment Spec In Lab Hollie Perez MD HEMATOLOGY ORDERABL ES Performing Organization Address [facility]/ZIP Co de Phone Number [facility] [place] [address] * (ABNORMAL) Basic Metabolic Panel (non-fasting) (07/09/2022 3:55 AM EDT) Glucose 101 65 - 199 mg/dL [facility] Comment:Diabetes: >=200 mg/d L plus symptoms Blood Urea Nitrogen 8 8 - 18 mg/dL [facility] Creatinine 0.26(L) 0.70 - 1.20 mg/dL [facility] Sodium 139 135 - 145 mmol/L [facility] Potassium 4.2 3.5 - 5.0 mmol/L [facility] Comment: Please note: ??Patients with WBC >100,000 may have falsely elevated Potassium levels. ??For accurate Potassium quantification in these patients send serum separator tube (gold top) for subsequent determinations. ??Contact the Clinical Chemistry Laboratory if there are any questions. Chloride 104 98 - 107 mmol/L [facility] Carbon Dioxide 23 22 - 31 mmol/L [facility] Anion Gap 12 5 - 15 mmol/L [facility] Calcium 9.1 8.5 - 10.5 mg/dL [facility] Est Glomerular Filtration Rate 152 >=60 mL/min/1. 73 m?? [facility] Comment: This patient's estimated GFR [...] Lab Hollie Perez MD CHEMISTRY ORDERABLE S [facility] [place] [address] * IR Site Check In Recovery Room (07/08/2022 10:29 AM EDT) Narrative Dicom, Auditing User - 07/08/2022 10:29 AM EDT This exam is auto-finalizing. No interpretation was done. Hollie Perez MD IMG IR ORDERABLES * (ABNORMAL) Differential, Automated (07/08/2022 5:48 AM EDT) Neutrophil % 49.5 % [facility] Neutrophil Absolute 2.62 1.70 - 6.10 x10(3)/mc L [facility] Lymph % 41.6 % [facility] Lymphocytes Abs 2.2 0.9 - 3.2 x10(3)/mc L [facility] Monocyte % 5.5 % [facility] Monocyte Abs 0.3 0.3 - 0.9 x10(3)/mc L [facility] Eos % 2.1 % [facility] Eosinophils Abs 0.1 0.0 - 0.4 x10(3)/mc L [facility] Basophil % 0.4 % [facility] Baso Absolute 0.0 0.0 - 0.1 x10(3)/mc L [facility] Immature Gran % 0.90 % [facility] Comment: Immature granulocytes(IG's)percentage and absolute count will include metamyelocytes, myelocytes, and promyelocytes. Blood smears from CBCs yielding IG's will be scanned manually for concordance. If this scan disagrees with the automated IG or if promyelocytes are noted, a manual differential will be performed. Immature Gran Absolute 0.05(H) 0.00 - 0.04 x10(3)/mc L [facility] Blood 07/08/2022 5:48 AM EDT 07/08/2022 5:53 AM EDT Narrative Resulting Agency Comment Spec In Lab Hollie Perez MD HEMATOLOGY ORDERABL ES [facility] [place] [address] * (ABNORMAL) Hemogram (07/08/2022 5:48 AM EDT) White Blood Cell 5.3 4.0 - 9.5 x10(3)/mc L [facility] Red Blood Cell 3.42(L) 4.00 - 5.21 x10(6)/mc L [facility] Hemoglobin 8.4(L) 11.7 - 15.5 g/dL [facility] Hematocrit 27.2(L) 35.7 - 45.8 % [facility] Mean Cell Volume 79.5(L) 82.6 - 94.4 fL [facility] Mean Cell Hemoglobin 24.6(L) 27.1 - 32.0 pg [facility] Mean Cell Hemoglobin Concentration 30.9(L) 31.7 - 35.0 g/dL [facility] Platelet 336 145 - 357 x10(3)/mc L [facility] RDW Standard Deviation 55.7(H) 37.0 - 46.0 fL [facility] RDW coefficient of variation 19.9(H) 11.5 - 14.1 % [facility] Mean Platelet Volume 9.2 7.6 - 12.9 fL [facility] NRBC% auto 0.4 % [facility] NRBC Absolute 0.020(H) 0.000 - 0.000 x10(3)/ L [facility] Blood 07/08/2022 5:48 AM EDT 07/08/2022 5:53 AM EDT Narrative Resulting Agency Comment Spec In Lab Hollie Perez MD HEMATOLOGY ORDERABL ES [facility] [place] [address] * (ABNORMAL) Basic Metabolic Panel (non-fasting) (07/08/2022 5:48 AM EDT) Glucose 92 65 - 199 mg/dL [facility] Comment:Diabetes: >=200 mg/d L plus symptoms Blood Urea Nitrogen 6(L) 8 - 18 mg/dL [facility] Creatinine 0.24(L) 0.70 - 1.20 mg/dL [facility] Sodium 140 135 - 145 mmol/L [facility] Potassium 3.8 3.5 - 5.0 mmol/L [facility] Comment: Please note: ??Patients with WBC >100,000 may have falsely elevated Potassium levels. ??For accurate Potassium quantification in these patients send serum separator tube (gold top) for subsequent determinations. ??Contact the Clinical Chemistry Laboratory if there are any questions. Chloride 105 98 - 107 mmol/L [facility] Carbon Dioxide 23 22 - 31 mmol/L [facility] Anion Gap 12 5 - 15 mmol/L [facility] Calcium 8.7 8.5 - 10.5 mg/dL [facility] Est Glomerular Filtration Rate 155 >=60 mL/min/1. 73 m?? [facility] Comment: This patient's estimated GFR [...] Lab Hollie Perez MD CHEMISTRY ORDERABLE S [facility] [place] [address] * Cortisol (07/08/2022 5:48 AM EDT) Cortisol 17.6 mcg/dL [facility] Comment: Reference ranges: ??AM (6-10am): ??4.8-19.5 mcg/dL ??PM (4-8pm) : ??2.5-11.9 mcg/dL Blood 07/08/2022 5:48 AM EDT 07/08/2022 5:53 AM EDT Narrative Resulting Agency Comment Spec In Lab Hollie Perez MD CHEMISTRY ORDERABLE S [facility] [place] [address] * (ABNORMAL) CRP, acute inflammation (07/08/2022 5:48 AM EDT) C-Reactive Protein 16.8(H) <=4.9 mg/L [facility] Blood 07/08/2022 5:48 AM EDT 07/08/2022 5:53 AM EDT Narrative Resulting Agency Comment Spec In Lab Hollei Perez MD CHEMISTRY ORDERABLE S Performing Organization Address [facility] Co de Phone Number [facility] [place] [address] * (ABNORMAL) Ferritin (07/08/2022 5:48 AM EDT) Ferritin 204(H) 15 - 150 ng/mL [facility] Comment: Pediatric reference ranges not [place] [facility] interpret with caution. Reference ranges for females greater than 50 years of age approach values for men, i.e., 30-400 ng/mL. Blood 07/08/2022 5:48 AM EDT 07/08/2022 5:53 AM EDT Narrative Resulting Agency Comment Spec In Lab Hollie Perez MD CHEMISTRY ORDERABLE S Performing Organization Address City/[facility]/ZIP Co de Phone Number [facility] [place] [address] * (ABNORMAL) Iron and TIBC (07/08/2022 5:48 AM EDT) Iron 52 30 - 150 mcg/dL [facility] TIBC 217(L) 250 - 450 mcg/dL [facility] Iron Saturation 24 20 - 50 % [facility] Blood 07/08/2022 5:48 AM EDT 07/08/2022 5:53 AM EDT Narrative Resulting Agency Comment Spec In Lab Hollie Perez MD CHEMISTRY ORDERABLE S Performing Organization Address [facility] Co de Phone Number [facility] [place] [address] * EKG 12 Lead (07/07/2022 11:44 AM EDT) Ventricular rate 78 BPM MUSE SYSTEM Atrial Rate 78 BPM MUSE SYSTEM P-R Interval 132 ms MUSE SYSTEM QRS Duration 84 ms MUSE SYSTEM Q-T Interval 410 ms MUSE SYSTEM QTC Calculated (Bezet) 467 ms MUSE SYSTEM Calculated P [place] 23 degrees MUSE SYSTEM Calculated R [place] 0 degrees MUSE SYSTEM Calculated T [place] 24 degrees MUSE SYSTEM INTERPRETATION Normal sinus [...] Perez MD ECG ORDERABLES Performing Organization Address [facility] de Phone Number MUSE SYSTEM * (ABNORMAL) Blood Gas Venous ([facility]) (07/07/2022 7:10 AM EDT) pH, Venous 7.42 7.32 - 7.42 [facility] PCO2, Venous 39(L) 41 - 51 mmHg [facility] PO2, Venous 58(H) 25 - 40 mmHg [facility] Bicarbonate, Venous 24.5 mmol/L [facility] Base Excess, Venous 0.0 mmol/L [facility] Hgb Blood Gas 8.8(L) 11.7 - 15.5 g/dL [facility] Oxyhemoglobin, Venous 89.6 % [facility] Carboxyhemoglob in, Venous 0.3 % [facility] Comment: Nonsmokers: 0.5-1.5% COHB Smokers: Variable, but usually less than 10% Toxic: 20-30% COHB Lethal: Greater than 60% COHB Methemoglobin, Venous 0.1 <=1.5 % [facility] Na Whole Blood 138 135 - 145 mmol/L [facility] K Whole Blood 3.6 3.5 - 5.0 mmol/L [facility] Comment: Please note: Patients with WBC >100,000 may have falsely elevated Potassium levels. Contact the Clinical Chemistry Laboratory if there are any questions. ICa Whole Blood 1.16 1.15 - 1.33 mmol/L [facility] Comment: Note: ??Total bilirubin higher than 20 mg/dL may lead to falsely low ionized calcium. CL Whole Blood 109(H) 98 - 107 mmol/L [facility] Gluc Whole Bld 89 65 - 199 mg/dL [facility] Comment:Diabetes: >=200 mg/d L plus symptoms Lactate WB 1.3 0.5 - 2.2 mmol/L [facility] Blood Gas Source Venous [facility] Blood Venous Draw / Unknown 07/07/2022 7:10 AM EDT 07/07/2022 7:18 AM EDT Narrative Resulting Agency Comment Spec In Lab Mayank Kang MD CHEMISTRY ORDERABLES Performing Organization Address City/[facility] Co de Phone Number [facility] [place] [address] * Scan, Peripheral Blood (07/07/2022 3:41 AM EDT) Plat estimate Normal [facility] RBC Morphology Abnormal [facility] Macrocyte 1-5 /HPF [facility] Microcyte 6-10 /HPF [facility] Hypochromia Slight [facility] Ovalocytes 1-5 /HPF [facility] Plat, Giant Less than 1 /HPF [facility] Blood 07/07/2022 3:41 AM EDT 07/07/2022 3:46 AM EDT Narrative Resulting Agency Comment Spec In Lab Hollie Perez MD HEMATOLOGY ORDERABL ES Performing Organization Address City/[facility]/ZIP [place] [address] * (ABNORMAL) Differential, Automated (07/07/2022 3:41 AM EDT) Pathologist [facility] Neutrophil % 40.9 % [facility] Neutrophil Absolute 1.54(L) 1.70 - 6.10 x10(3)/ L [facility] Lymph % 49.7 % [facility] Lymphocytes Abs 1.9 0.9 - 3.2 x10(3)/ L [facility] Monocyte % 6.3 % [facility] Monocyte Abs 0.2(L) 0.3 - 0.9 x10(3)/ L [facility] Eos % 2.1 % [facility] Eosinophils Abs 0.1 0.0 - 0.4 x10(3)/[facility] Basophil % 0.5 % [facility] Baso Absolute 0.0 0.0 - 0.1 x10(3)/[facility] Immature Gran % 0.50 % [facility] Comment: Immature granulocytes(IG's)percentage and absolute count will include metamyelocytes, myelocytes, and promyelocytes. Blood smears from CBCs yielding IG's will be scanned manually for concordance. If this scan disagrees with the automated IG or if promyelocytes are noted, a manual differential will be performed. Immature Gran Absolute 0.02 0.00 - 0.04 x10(3)/ L [facility] Blood 07/07/2022 3:41 AM EDT 07/07/2022 3:46 AM EDT Narrative Resulting Agency Comment Spec In Lab Hollie Perez MD [place] [address] * (ABNORMAL) Hemogram (07/07/2022 3:41 AM EDT) White Blood Cell 3.8(L) 4.0 - 9.5 x10(3)/ L [facility] Red Blood Cell 3.13(L) 4.00 - 5.21 x10(6)/ L [facility] Hemoglobin 7.6(L) 11.7 - 15.5 g/dL [facility] Hematocrit 25.5(L) 35.7 - 45.8 % [facility] Mean Cell Volume 81.5(L) 82.6 - 94.4 fL [facility] Mean Cell Hemoglobin 24.3(L) 27.1 - 32.0 pg [facility] Mean Cell Hemoglobin Concentration 29.8(L) 31.7 - 35.0 g/dL [facility] Platelet 281 145 - 357 x10(3)/mc L [facility] RDW Standard Deviation 56.9(H) 37.0 - 46.0 fL [facility] RDW coefficient of variation 19.5(H) 11.5 - 14.1 % [facility] Mean Platelet Volume 9.5 7.6 - 12.9 fL [facility] NRBC% auto 0.0 % [facility] NRBC Absolute 0.000 0.000 - 0.000 x10(3)/ L [facility] Blood 07/07/2022 3:41 AM EDT 07/07/2022 3:46 AM EDT Narrative Resulting Agency Comment Spec In Lab Hollie Perez MD HEMATOLOGY ORDERABL ES [facility] [place] [address] * (ABNORMAL) Basic Metabolic Panel (non-fasting) (07/07/2022 3:41 AM EDT) Glucose 90 65 - 199 mg/dL [facility] Comment:Diabetes: >=200 mg/d L plus symptoms Blood Urea Nitrogen 5(L) 8 - 18 mg/dL [facility] Creatinine 0.23(L) 0.70 - 1.20 mg/dL [facility] Sodium 141 135 - 145 mmol/L [facility] Potassium 3.7 3.5 - 5.0 mmol/L [facility] Comment: Please note: ??Patients with WBC >100,000 may have falsely elevated Potassium levels. ??For accurate Potassium quantification in these patients send serum separator tube (gold top) for subsequent determinations. ??Contact the Clinical Chemistry Laboratory if there are any questions. Chloride 110(H) 98 - 107 mmol/L [facility] Carbon Dioxide 23 22 - 31 mmol/L [facility] Anion Gap 8 5 - 15 mmol/L [facility] Calcium 8.3(L) 8.5 - 10.5 mg/dL [facility] Est Glomerular Filtration Rate 157 >=60 mL/min/1. 73 m?? [facility] Comment: This patient's estimated GFR [...] MD CHEMISTRY ORDERABLE S Performing Organization Address [facility] Co de Phone Number [facility] [place] [address] * Blood culture (07/07/2022 3:41 AM EDT) Blood Culture No growth at 5 days. [facility] Blood 07/07/2022 3:41 AM EDT 07/07/2022 4:59 AM EDT Comment:L hand Narrative Resulting Agency Comment Spec In Lab Hollie Perez MD MICROBIOLOGY - BLOO D ORDERABLES Performing Organization Address [facility]/[place] [address] * (ABNORMAL) Hepatic Function Panel (07/07/2022 3:41 AM EDT) Protein, Total 6.0(L) 6.1 - 8.0 g/dL [facility] Albumin 2.9(L) 3.2 - 5.2 g/dL [facility] Aspartate Aminotransferase 20 0 - 30 unit/L [facility] Alanine Aminotransferase 42(H) 0 - 30 unit/L [facility] Alkaline Phosphatase 177(H) 35 - 105 unit/L [facility] Bilirubin, Total <0.2(L) 0.2 - 1.3 mg/dL [facility] Bilirubin, Direct <0.1 0.0 - 0.3 mg/dL [facility] Blood 07/07/2022 3:41 AM EDT 07/07/2022 3:46 AM EDT Narrative Resulting Agency Comment Spec In Lab Hollie Perez MD CHEMISTRY ORDERABLE S Performing Organization Address [facility] Co de Phone Number [facility] [place] [address] * (ABNORMAL) Hemoglobin and Hematocrit, blood (07/06/2022 6:40 PM EDT) Hemoglobin 8.5(L) 11.7 - 15.5 g/dL [facility] Hematocrit 26.4(L) 35.7 - 45.8 % [facility] Blood 07/06/2022 6:40 PM EDT 07/06/2022 6:46 PM EDT Narrative Resulting Agency Comment Spec In Lab Hollie Perez MD HEMATOLOGY ORDERABL ES Performing Organization Address City/[facility]/ZIP Co de Phone Number [facility] [place] [address] * Lactate, whole blood, [place] [place] (07/06/2022 6:40 PM EDT) Lactate WB 0.6 0.5 - 2.2 mmol/L [facility] Blood 07/06/2022 6:40 PM EDT 07/06/2022 6:46 PM EDT Narrative Resulting Agency Comment Spec In Lab Hollie Perez MD CHEMISTRY ORDERABLE S Performing Organization Address City/[facility]/ZIP Co de Phone Number [facility] [place] [address] * POCT Glucose (07/06/2022 5:36 PM EDT) Glucose, POC 86 65 - 199 mg/dL [facility] Comment: Supplemental ranges: <140 mg/dL before meals <180 mg/dL all other times of the day Blood 07/06/2022 5:36 PM EDT 07/06/2022 5:36 PM EDT Hollie Perez MD POINT OF CARE TEST ORDERABLES Performing Organization Address [facility] Co de Phone Number [facility] [place] [address] * (ABNORMAL) CRP, acute inflammation (07/06/2022 6:21 AM EDT) C-Reactive Protein 54.2(H) <=4.9 mg/L [facility] Blood Venous Draw / Unknown 07/06/2022 6:21 AM EDT 07/06/2022 7:28 AM EDT Narrative Resulting Agency Comment Spec In Lab Hollie Perez MD CHEMISTRY ORDERABLE S Performing Organization Address [facility] Co de Phone Number [facility] [place] [address] * (ABNORMAL) Basic Metabolic Panel (non-fasting) (07/06/2022 6:21 AM EDT) Glucose 80 65 - 199 mg/dL [facility] Comment:Diabetes: >=200 mg/d L plus symptoms Blood Urea Nitrogen 4(L) 8 - 18 mg/dL [facility] Creatinine 0.26(L) 0.70 - 1.20 mg/dL [facility] Sodium 138 135 - 145 mmol/L [facility] Potassium 3.6 3.5 - 5.0 mmol/L [facility] Comment: Please note: ??Patients with WBC >100,000 may have falsely elevated Potassium levels. ??For accurate Potassium quantification in these patients send serum separator tube (gold top) for subsequent determinations. ??Contact the Clinical Chemistry Laboratory if there are any questions. Chloride 104 98 - 107 mmol/L [facility] Carbon Dioxide Not Perf [facility] Comment:Add-on request. Jonah le too old to perform test. Anion Gap Unable to Calculate 5 - 15 mmol/L [facility] Calcium 8.6 8.5 - 10.5 mg/dL [facility] Est Glomerular Filtration Rate 152 >=60 mL/min/1 .73 m?? [facility] Comment: This patient's estimated GFR [...] Lab Hollie Perez MD CHEMISTRY ORDERABLE S [facility] [place] [address] * Lavender Tube HOLD (07/06/2022 6:21 AM EDT) Lavender Hold Sample in lab. [facility] Blood Venous Draw / Unknown 07/06/2022 6:21 AM EDT 07/06/2022 6:28 AM EDT Hollie Perez MD HEMATOLOGY ORDERABL ES [facility] [place] [address] * (ABNORMAL) Hepatic Function Panel (07/06/2022 6:21 AM EDT) Pathologist Niom Protein, Total 6.7 6.1 - 8.0 g/dL [facility] Albumin 3.2 3.2 - 5.2 g/dL [facility] Aspartate Aminotransferase 25 0 - 30 unit/L [facility] Alanine Aminotransferase 57(H) 0 - 30 unit/L [facility] Alkaline Phosphatase 199(H) 35 - 105 unit/L [facility] Bilirubin, Total 0.3 0.2 - 1.3 mg/dL [facility] Bilirubin, Direct 0.1 0.0 - 0.3 mg/dL [facility] Blood 07/06/2022 6:21 AM EDT 07/06/2022 6:27 AM EDT Narrative Resulting Agency Comment Spec In Lab Hollie Perez MD CHEMISTRY ORDERABLE S Performing Organization Address [facility] Co de Phone Number [facility] [place] [address] * Blood culture (07/06/2022 6:21 AM EDT) Pathologist [facility] Blood Culture No growth at 5 days. [facility] Blood 07/06/2022 6:21 AM EDT 07/06/2022 11:05 AM EDT Comment:R Hand Narrative Resulting Agency Comment Spec In Lab Hollie Perez MD MICROBIOLOGY - BLOO D ORDERABLES Performing Organization Address [facility] Co de Phone Number [facility] [place] [address] * CT Abdomen & Pelvis w Contrast [...] who have questions please contact the health associate director career services that requested your imaging first. ? Electronically signed by: Nathalie Whitaker MD, [facility] ([phone]), at 07/05/2022 5:38 PM Narrative 07/05/2022 5:38 [...] administration of contrast. Administered 66.0 ml of [id number] mg/ml. Oral contrast administered. COMPARISON: CT lumbar [...] patients who have questions please contactthe health associate director career services that requested your imaging first. Hollie Perez MD IMG CT ORDERABLES * Scan, Peripheral Blood (07/05/2022 5:31 AM EST) Pathologist [facility] Plat estimate Normal [facility] RBC Morphology Abnormal [facility] Hypochromia Slight [facility] Blood 07/05/2022 5:31 AM EST 07/05/2022 5:43 AM EST Narrative Resulting Agency Comment Spec In Lab Ian Duarte MD HEMATOLOGY CLEO SALDANA [facility] [place] [address] * Bilirubin, Direct (07/05/2022 5:31 AM EST) Pathologist [facility] Bilirubin, Direct 0.1 0.0 - 0.3 mg/dL [facility] Blood 07/05/2022 5:31 AM EST 07/05/2022 5:43 AM EST Narrative Resulting Agency Comment Spec In Lab Hollie Perez MD CHEMISTRY ORDERABLE S [facility] [place] [address] * (ABNORMAL) Differential, Automated (07/05/2022 5:31 AM EST) Neutrophil % 41.2 % [facility] Neutrophil Absolute 1.39(L) 1.70 - 6.10 x10(3)/mc L [facility] Lymph % 45.4 % [facility] Lymphocytes Abs 1.5 0.9 - 3.2 x10(3)/mc L [facility] Monocyte % 11.6 % [facility] Monocyte Abs 0.4 0.3 - 0.9 x10(3)/mc L [facility] Eos % 0.6 % [facility] Eosinophils Abs 0.0 0.0 - 0.4 x10(3)/mc L [facility] Basophil % 0.6 % [facility] Baso Absolute 0.0 0.0 - 0.1 x10(3)/mc L [facility] Immature Gran % 0.60 % [facility] Comment: Immature granulocytes(IG's)percentage and absolute count will include metamyelocytes, myelocytes, and promyelocytes. Blood smears from CBCs yielding IG's will be scanned manually for concordance. If this scan disagrees with the automated IG or if promyelocytes are noted, a manual differential will be performed. Immature Gran Absolute 0.02 0.00 - 0.04 x10(3)/mc L [facility] Blood 07/05/2022 5:31 AM EST 07/05/2022 5:43 AM EST Narrative Resulting Agency Comment Spec In Lab Ian Duarte MD HEMATOLOGY ORDE LES [facility] [place] [address] * (ABNORMAL) Hemogram (07/05/2022 5:31 AM EST) White Blood Cell 3.4(L) 4.0 - 9.5 x10(3)/mc L [facility] Red Blood Cell 3.20(L) 4.00 - 5.21 x10(6)/mc L [facility] Hemoglobin 7.7(L) 11.7 - 15.5 g/dL [facility] Hematocrit 25.4(L) 35.7 - 45.8 % [facility] Mean Cell Volume 79.4(L) 82.6 - 94.4 fL [facility] Mean Cell Hemoglobin 24.1(L) 27.1 - 32.0 pg [facility] Mean Cell Hemoglobin Concentration 30.3(L) 31.7 - 35.0 g/dL [facility] Platelet 240 145 - 357 x10(3)/mc L [facility] RDW Standard Deviation 56.9(H) 37.0 - 46.0 fL [facility] RDW coefficient of variation 19.7(H) 11.5 - 14.1 % [facility] Mean Platelet Volume 9.5 7.6 - 12.9 fL [facility] NRBC% auto 0.0 % [facility] NRBC Absolute 0.000 0.000 - 0.000 x10(3)/ L [facility] Blood 07/05/2022 5:31 AM EST 07/05/2022 5:43 AM EST Narrative Resulting Agency Comment Spec In Lab Ian Duarte MD HEMATOLOGY CLEO SALDANA Performing Organization Address City/State/[facility] Co de Phone Number [facility] [place] [address] * (ABNORMAL) Comprehensive metabolic panel (non-fasting) (07/05/2022 5:31 AM EST) Glucose 85 65 - 199 mg/dL [facility] Comment:Diabetes: >=200 mg/d L plus symptoms Blood Urea Nitrogen 6(L) 8 - 18 mg/dL [facility] Creatinine 0.29(L) 0.70 - 1.20 mg/dL [facility] Sodium 142 135 - 145 mmol/L [facility] Potassium 3.8 3.5 - 5.0 mmol/L [facility] Comment: Please note: ??Patients with WBC >100,000 may have falsely elevated Potassium levels. ??For accurate Potassium quantification in these patients send serum separator tube (gold top) for subsequent determinations. ??Contact the Clinical Chemistry Laboratory if there are any questions. Chloride 108(H) 98 - 107 mmol/L [facility] Carbon Dioxide 25 22 - 31 mmol/L [facility] Anion Gap 9 5 - 15 mmol/L [facility] Calcium 8.4(L) 8.5 - 10.5 mg/dL [facility] Protein, Total 5.9(L) 6.1 - 8.0 g/dL [facility] Albumin 3.1(L) 3.2 - 5.2 g/dL [facility] Aspartate Aminotransferase 39(H) 0 - 30 unit/L [facility] Alanine Aminotransferase 74(H) 0 - 30 unit/L [facility] Alkaline Phosphatase 209(H) 35 - 105 unit/L [facility] Bilirubin, Total 0.4 0.2 - 1.3 mg/dL [facility] Est Glomerular Filtration Rate 148 >=60 mL/min/1. 73 m?? [facility] Comment: This patient's estimated GFR [...] Lab Ian Duarte MD CHEMISTRY ORDER MYRANDA [facility] [place] [address] * IR All Drainage Procedures (07/04/2022 4:14 PM EST) Anatomical Region Laterality Modality X-Ray Angiograph y Narrative 07/04/2022 4:52 PM EST Preoperative Diagnosis: re accumulated Lumbar collection by CT, Fevers Postoperative Diagnosis: ?? Same Procedure Performed: Ultrasound and fluoroscopically guided drain placement. Operators: Mich Martino MD, Attending Estimated Blood Loss: Negligible. Fluoroscopy dose: ??Please see [facility] IR technologist record for procedural dose/time. Cefazolin/ [...] dilated over the wire and a 8.5 Nigerian drain was advanced over the wire into [...] 6:07 AM EST) Neutrophil % 81.6 % [facility] Neutrophil Absolute 6.79(H) 1.70 - 6.10 x10(3)/mc L [facility] Lymph % 11.8 % [facility] Lymphocytes Abs 1.0 0.9 - 3.2 x10(3)/mc L [facility] Monocyte % 6.3 % [facility] Monocyte Abs 0.5 0.3 - 0.9 x10(3)/mc L [facility] Eos % 0.0 % [facility] Eosinophils Abs 0.0 0.0 - 0.4 x10(3)/mc L [facility] Basophil % 0.1 % [facility] Baso Absolute 0.0 0.0 - 0.1 x10(3)/mc L [facility] Immature Gran % 0.20 % [facility] Comment: Immature granulocytes(IG's)percentage and absolute count will include metamyelocytes, myelocytes, and promyelocytes. Blood smears from CBCs yielding IG's will be scanned manually for concordance. If this scan disagrees with the automated IG or if promyelocytes are noted, a manual differential will be performed. Immature Gran Absolute 0.02 0.00 - 0.04 x10(3)/mc L [facility] Blood 07/04/2022 6:07 AM EST 07/04/2022 6:14 AM EST Narrative Resulting Agency Comment Spec In Lab Ian Duarte MD HEMATOLOGY CLEO SALDANA [facility] [place] [address] * (ABNORMAL) Hemogram (07/04/2022 6:07 AM EST) White Blood Cell 8.3 4.0 - 9.5 x10(3)/mc L [facility] Red Blood Cell 3.38(L) 4.00 - 5.21 x10(6)/mc L [facility] Hemoglobin 8.3(L) 11.7 - 15.5 g/dL [facility] Hematocrit 26.0(L) 35.7 - 45.8 % [facility] Mean Cell Volume 76.9(L) 82.6 - 94.4 fL [facility] Mean Cell Hemoglobin 24.6(L) 27.1 - 32.0 pg [facility] Mean Cell Hemoglobin Concentration 31.9 31.7 - 35.0 g/dL [facility] Platelet 244 145 - 357 x10(3)/mc L [facility] RDW Standard Deviation 54.5(H) 37.0 - 46.0 fL [facility] RDW coefficient of variation 19.5(H) 11.5 - 14.1 % [facility] Mean Platelet Volume 9.3 7.6 - 12.9 fL [facility] NRBC% auto 0.0 % [facility] NRBC Absolute 0.000 0.000 - 0.000 x10(3)/mc L [facility] Blood 07/04/2022 6:07 AM EST 07/04/2022 6:14 AM EST Narrative Resulting Agency Comment Spec In Lab Ian Duarte MD HEMATOLOGY CLEO SALDANA Performing Organization Address [facility] Co de Phone Number [facility] [place] [address] * Lactate, whole blood, [place] [place] [place] (07/04/2022 6:07 AM EST) Lactate WB 1.9 0.5 - 2.2 mmol/L [facility] Blood 07/04/2022 6:07 AM EST 07/04/2022 6:14 AM EST Narrative Resulting Agency Comment Spec In Lab Yury Saavedra MD CHEMISTRY ORDERABLE S Performing Organization Address City/[facility]/ZIP Co de Phone Number [facility] [place] [address] * (ABNORMAL) Basic Metabolic Panel (non-fasting) (07/04/2022 6:07 AM EST) Glucose 114 65 - 199 mg/dL [facility] Comment:Diabetes: >=200 mg/d L plus symptoms Blood Urea Nitrogen 8 8 - 18 mg/dL [facility] Creatinine 0.34(L) 0.70 - 1.20 mg/dL [facility] Sodium 134(L) 135 - 145 mmol/L [facility] Potassium 4.1 3.5 - 5.0 mmol/L [facility] Comment: Please note: ??Patients with WBC >100,000 may have falsely elevated Potassium levels. ??For accurate Potassium quantification in these patients send serum separator tube (gold top) for subsequent determinations. ??Contact the Clinical Chemistry Laboratory if there are any questions. Chloride 100 98 - 107 mmol/L [facility] Carbon Dioxide 24 22 - 31 mmol/L [facility] Anion Gap 10 5 - 15 mmol/L [facility] Calcium 8.4(L) 8.5 - 10.5 mg/dL [facility] Est Glomerular Filtration Rate 143 >=60 mL/min/1. 73 m?? [facility] Comment: This patient's estimated GFR [...] Lab Ian Duarte MD CHEMISTRY ORDER MYRANDA [facility] [place] [address] * (ABNORMAL) Urinalysis Microscopic Exam (07/04/2022 3:05 AM EST) RBC, Urine 2 0 - 4 /HPF [facility] WBC, Urine 2 0 - 5 /HPF [facility] Squamous Epithelial Cells Raw Data, Urine 6(H) <=4 /HPF [facility] Triple Phosphate Crystal, Urine Occasional (A) None /HPF [facility] Clean Catch Urine 07/04/2022 3:05 AM EST 07/04/2022 3:10 AM EST Narrative Resulting Agency Comment Spec In Lab Yury Saavedra MD URINE ORDERABLES [facility] [place] [address] * (ABNORMAL) Urinalysis with reflex Culture (07/04/2022 3:05 AM EST) Glucose, Urine Dipstick Negative Negative mg/dL [facility] Protein, Urine Dipstick 30(A) Negative mg/dL [facility] Bilirubin, Urine Dipstick Negative Negative mg/dL [facility] Comment: Clinical correlation required for positive Urine Bilirubin results as false positive may occur with some drugs and drug related products. If a false positive is suspected a serum total bilirubin should be considered if clinically indicated. Urobilinogen, Urine Dipstick Normal Normal mg/dL [facility] pH, Urn (dipstick) 8.0 5.0 - 8.0 [facility] Blood, Urine Dipstick Negative Negative mg/dL [facility] Ketone, Urine Dipstick Negative Negative mg/dL [facility] Nitrite, Urine Dipstick Negative Negative [facility] Leukocytes, Urine Dipstick Trace(A) Negative [facility] Appearance, Urine Dipstick Cloudy(A) Clear [facility] Specific [place] Urine Automated >=1.030(A) 1.005 - 1.030 [facility] Color, Urine Dipstick Dark Yellow Yellow [facility] Reflex to Culture No [facility] Clean Catch Urine 07/04/2022 3:05 AM EST 07/04/2022 3:10 AM EST Narrative Resulting Agency Comment Spec In Lab Yury Saavedra MD URINE ORDERABLES Performing Organization Address City/[facility]/ZIP Co de Phone Number [facility] [place] [address] * (ABNORMAL) Lactate, whole blood, [place] [place] [place] (07/04/2022 12:50 AM EST) Lactate WB 2.6(H) 0.5 - 2.2 mmol/L [facility] Blood 07/04/2022 12:5 0 AM EST 07/04/2022 1:02 AM EST Narrative Resulting Agency Comment Spec In Lab Yury Saavedra MD CHEMISTRY ORDERABLE S Performing Organization Address [facility] Co de Phone Number [facility] [place] [address] * EKG 12 Lead (07/04/2022 12:16 AM EST) Ventricular rate 152 BPM MUSE SYSTEM Atrial Rate 152 BPM MUSE SYSTEM P-R Interval 112 ms MUSE SYSTEM QRS Duration 66 ms MUSE SYSTEM Q-T Interval 328 ms MUSE SYSTEM QTC Calculated (Bezet) 521 ms MUSE SYSTEM Calculated P [place] 13 degrees MUSE SYSTEM Calculated R [place] 7 degrees MUSE SYSTEM Calculated T [place] 54 degrees MUSE SYSTEM INTERPRETATION Sinus tachycardia Nonspecific T wave abnormality Abnormal ECG When compared with ECG of 01-JUL-2022 14:17, No significant change was found I personally reviewed the tracing and edited the fellows interpretation Confirmed by fellow Ravinder Garcia ([id number]) on 07/07/2022 4:08:27 AM Confirmed by MD CONTRERAS SALVATORE ([id number]) on 07/07/2022 10:33:36 AM MUSE SYSTEM 07/04/2022 12:1 6 AM EST 07/07/2022 10:33 AM EDT Yury Saavedra MD ECG ORDERABLES Performing Organization Address City/[facility]/ZIP Co de Phone Number MUSE SYSTEM * Lavender Tube HOLD (07/03/2022 11:05 PM EST) Lavender Hold Sample in lab. [facility] Blood Venous Draw / Unknown 07/03/2022 11:05 PM EST 07/03/2022 11:14 PM EST Yury Saavedra MD HEMATOLOGY ORDERABL ES Performing Organization Address City/[facility]/ZIP Co de Phone Number [facility] [place] [address] * (ABNORMAL) CRP, acute inflammation (07/03/2022 11:05 PM EST) C-Reactive Protein 73.7(H) <=4.9 mg/L [facility] Blood 07/03/2022 11:0 5 PM EST 07/03/2022 11:14 PM EST Narrative Resulting Agency Comment Spec In Lab Yury Saavedra MD CHEMISTRY ORDERABLE S Performing Organization Address [facility] Co de Phone Number [facility] [place] [address] * (ABNORMAL) Blood culture (07/03/2022 11:05 PM EST) Blood Culture Escherichia coli detected by PCR Isolate saved. If future testing is required, contact the Microbiology Repair Supervisor. (A) [facility] Gram Stain Anaerobic Growth detected in anaerobic bottle. Gram Negative Rods seen Results called to and read back by Zoila Rincon RN (A) [facility] Organism Escherichia coli(A) [facility] Organism Gram Negative Rods(A) [facility] Blood STRUCTURE OF RIGHT HAND [...] - BLOO D ORDERABLES Performing Organization Address City/[facility] Co de Phone Number [facility] [place] [address] * Blood culture (07/03/2022 10:45 PM EST) Blood Culture No growth at 5 days. [facility] Blood STRUCTURE OF LEFT HAND / Unknown 07/03/2022 10:45 PM EST 07/04/2022 Narrative Resulting Agency Comment Spec In Lab Yury Saavedra MD MICROBIOLOGY - BLOO D ORDERABLES Performing Organization Address [facility] Co de Phone Number [facility] [place] [address] * CT Lumbar Spine w Contrast (07/03/2022 [...] who have questions please contact the health associate director career services that requested your imaging [...] patients who have questions please contactthe health associate director career services that requested your imaging first. Ian Duarte MD [facility] CT ORDERABL ES * (ABNORMAL) Differential, Automated (07/03/2022 10:08 AM EST) Neutrophil % 50.0 % [facility] Neutrophil Absolute 1.61(L) 1.70 - 6.10 x10(3)/mc L [facility] Lymph % 37.0 % [facility] Lymphocytes Abs 1.2 0.9 - 3.2 x10(3)/mc L [facility] Monocyte % 10.9 % [facility] Monocyte Abs 0.4 0.3 - 0.9 x10(3)/mc L [facility] Eos % 0.9 % [facility] Eosinophils Abs 0.0 0.0 - 0.4 x10(3)/mc L [facility] Basophil % 0.9 % [facility] Baso Absolute 0.0 0.0 - 0.1 x10(3)/mc L [facility] Immature Gran % 0.30 % [facility] Comment: Immature granulocytes(IG's)percentage and absolute count will include metamyelocytes, myelocytes, and promyelocytes. Blood smears from CBCs yielding IG's will be scanned manually for concordance. If this scan disagrees with the automated IG or if promyelocytes are noted, a manual differential will be performed. Immature Gran Absolute 0.01 0.00 - 0.04 x10(3)/mc L [facility] Blood 07/03/2022 10:0 8 AM EST 07/03/2022 10:19 AM EST Narrative Resulting Agency Comment Spec In Lab Ian Duarte MD HEMATOLOGY CLEO SALDANA Performing Organization Address City/State/[facility] Co de Phone Number [facility] [place] [address] * (ABNORMAL) Hemogram (07/03/2022 10:08 AM EST) White Blood Cell 3.2(L) 4.0 - 9.5 x10(3)/mc L [facility] Red Blood Cell 4.08 4.00 - 5.21 x10(6)/mc L [facility] Hemoglobin 9.9(L) 11.7 - 15.5 g/dL [facility] Hematocrit 32.2(L) 35.7 - 45.8 % [facility] Mean Cell Volume 78.9(L) 82.6 - 94.4 fL [facility] Mean Cell Hemoglobin 24.3(L) 27.1 - 32.0 pg [facility] Mean Cell Hemoglobin Concentration 30.7(L) 31.7 - 35.0 g/dL [facility] Platelet 307 145 - 357 x10(3)/mc L [facility] RDW Standard Deviation 53.3(H) 37.0 - 46.0 fL [facility] RDW coefficient of variation 19.0(H) 11.5 - 14.1 % [facility] Mean Platelet Volume 9.2 7.6 - 12.9 fL [facility] NRBC% auto 0.0 % [facility] NRBC Absolute 0.000 0.000 - 0.000 x10(3)/mc L [facility] Blood 07/03/2022 10:0 8 AM EST 07/03/2022 10:19 AM EST Narrative Resulting Agency Comment Spec In Lab Ian Duarte MD HEMATOLOGY ORDArthur SALDANA Performing Organization Address [facility] Co de Phone Number [facility] [place] [address] * (ABNORMAL) Sedimentation rate (07/03/2022 10:08 AM EST) Sedimentation Rate Automated 110(H) 2 - 37 mm/hr [facility] Comment: Effective April 06, 2019 new capillary photometric technology has resulted in a change in reference ranges. It is recommended that each ESR result be reviewed with its own age appropriate reference range. Blood 07/03/2022 10:0 8 AM EST 07/03/2022 10:19 AM EST Narrative Resulting Agency Comment Spec In Lab Ian Duarte MD HEMATOLOGY ORDArthur SALDANA Performing Organization Address [facility] Co de Phone Number [facility] [place] [address] * XR Chest One View (07/02/2022 5:04 [...] who have questions please contact the health associate director career services that requested your imaging first. ? Electronically signed by: Enid Vargas MD, [facility] ([phone]), at 07/02/2022 11:26 PM Narrative 07/02/2022 11:26 [...] patients who have questions please contactthe health associate director career services that requested your imaging first. Ian Duarte MD IMG DX ORDERABL ES * (ABNORMAL) Urinalysis Microscopic Exam (07/02/2022 3:35 PM EST) RBC, Urine 7(H) 0 - 4 /HPF [facility] WBC, Urine 3 0 - 5 /HPF [facility] Squamous Epithelial Cells Raw Data, Urine 4 <=4 /HPF [facility] Hyaline Casts, Urine 3(H) 0 - 2 /LPF [facility] Straight Catheter Urine 07/02/2022 3:35 PM EST 07/02/2022 4:10 PM EST Narrative Resulting Agency Comment Spec In Lab Ian Duarte MD URINE ORDERABLE S Performing Organization Address [facility] Co de Phone Number [facility] [place] [address] * (ABNORMAL) Urinalysis with reflex Culture (07/02/2022 3:35 PM EST) Glucose, Urine Dipstick Negative Negative mg/dL [facility] Protein, Urine Dipstick Negative Negative mg/dL [facility] Bilirubin, Urine Dipstick Negative Negative mg/dL [facility] Comment: Clinical correlation required for positive Urine Bilirubin results as false positive may occur with some drugs and drug related products. If a false positive is suspected a serum total bilirubin should be considered if clinically indicated. Urobilinogen, Urine Dipstick Normal Normal mg/dL [facility] pH, Urn (dipstick) 7.5 5.0 - 8.0 [facility] Blood, Urine Dipstick Trace(A) Negative mg/dL [facility] Ketone, Urine Dipstick Negative Negative mg/dL [facility] Nitrite, Urine Dipstick Negative Negative [facility] Leukocytes, Urine Dipstick Negative Negative mcL [facility] Appearance, Urine Dipstick Clear Clear [facility] Specific [place] Urine Automated 1.016 1.005 - 1.030 [facility] Color, Urine Dipstick Yellow Yellow [facility] Reflex to Culture No [facility] Straight Catheter Urine 07/02/2022 3:35 PM EST 07/02/2022 4:10 PM EST Narrative Resulting Agency Comment Spec In Lab Ian Duarte MD URINE ORDERABLE S Performing Organization Address [facility]/ZIP Co de Phone Number [facility] [place] [address] * Differential, Automated (07/02/2022 6:15 AM EST) [facility] Neutrophil % 57.6 % [facility] Neutrophil Absolute 1.89 1.70 - 6.10 x10(3)/[facility] Lymph % 32.3 % [facility] Lymphocytes Abs 1.1 0.9 - 3.2 x10(3)/[facility] [address] [facility] Monocyte % 9.5 % [facility] Monocyte Abs 0.3 0.3 - 0.9 x10(3)/[facility] [address] [facility] Eos % 0.0 % [facility] Eosinophils Abs 0.0 0.0 - 0.4 x10(3)/[facility] [address] [facility] Basophil % 0.3 % [facility] Baso Absolute 0.0 0.0 - 0.1 x10(3)/[facility] [address] [facility] Immature Gran % 0.30 % [facility] Comment: Immature granulocytes(IG's)percentage and absolute count will include metamyelocytes, myelocytes, and promyelocytes. Blood smears from CBCs yielding IG's will be scanned manually for concordance. If this scan disagrees with the automated IG or if promyelocytes are noted, a manual differential will be performed. Immature Gran Absolute 0.01 0.00 - 0.04 x10(3)/[facility] [address] LABORATORY Blood 07/02/2022 6:15 AM EST 07/02/2022 6:49 AM EST Narrative Resulting Agency Comment Spec In Lab Ian Duarte MD HEMATOLOGY CLEO SALDANA [facility] [place] [address] * (ABNORMAL) Hemogram (07/02/2022 6:15 AM EST) [facility] White Blood Cell 3.3(L) 4.0 - 9.5 x10(3)/mc L [facility] Red Blood Cell 3.98(L) 4.00 - 5.21 x10(6)/[facility] LAB[facility]ORY Hemoglobin 9.6(L) 11.7 - 15.5 g/dL [facility] Hematocrit 30.7(L) 35.7 - 45.8 % [facility] Mean Cell Volume 77.1(L) 82.6 - 94.4 fL [facility] Mean Cell Hemoglobin 24.1(L) 27.1 - 32.0 pg [facility] Mean Cell Hemoglobin Concentration 31.3(L) 31.7 - 35.0 g/dL [facility] Platelet 336 145 - 357 x10(3)/mc L [facility] RDW Standard Deviation 51.1(H) 37.0 - 46.0 fL [facility] RDW coefficient of variation 18.6(H) 11.5 - 14.1 % [facility] Mean Platelet Volume 9.1 7.6 - 12.9 fL [facility] NRBC% auto 0.0 % [facility] NRBC Absolute 0.000 0.000 - 0.000 x10(3)/mc L [facility] Blood 07/02/2022 6:15 AM EST 07/02/2022 6:49 AM EST Narrative Resulting Agency Comment Spec In Lab Ian Duarte MD HEMATOLOGY ORDE LES Performing Organization Address City/[facility] Co de Phone Number [facility] [place] [address] * TSH Hardeman (07/02/2022 6:15 AM EST) Thyroid Stimulating Hormone 1.45 0.27 - 4.20 mcIU/mL [facility] Comment: Reference Interval (mcIU/mL): Females: ??First Trimester: 0.23-3.88 ??Second Trimester: 0.22-3.90 ??Third Trimester: 0.44-4.66 Blood 07/02/2022 6:15 AM EST 07/02/2022 6:49 AM EST Narrative Resulting Agency Comment Spec In Lab Ian Duarte MD CHEMISTRY ORDER MYRANDA Performing Organization Address City/[facility]/ZIP Co de Phone Number [facility] [place] [address] * (ABNORMAL) Basic Metabolic Panel (non-fasting) (07/02/2022 6:15 AM EST) Glucose 91 65 - 199 mg/dL [facility] Comment:Diabetes: >=200 mg/d L plus symptoms Blood Urea Nitrogen 5(L) 8 - 18 mg/dL [facility] Creatinine 0.24(L) 0.70 - 1.20 mg/dL [facility] Sodium 134(L) 135 - 145 mmol/L [facility] Potassium 4.0 3.5 - 5.0 mmol/L [facility] Comment: Please note: ??Patients with WBC >100,000 may have falsely elevated Potassium levels. ??For accurate Potassium quantification in these patients send serum separator tube (gold top) for subsequent determinations. ??Contact the Clinical Chemistry Laboratory if there are any questions. Chloride 100 98 - 107 mmol/L [facility] Carbon Dioxide 24 22 - 31 mmol/L [facility] Anion Gap 10 5 - 15 mmol/L [facility] Calcium 8.7 8.5 - 10.5 mg/dL [facility] Est Glomerular Filtration Rate 155 >=60 mL/min/1. 73 m?? [facility] Comment: This patient's estimated GFR [...] Lab Ian Duarte MD CHEMISTRY ORDER MYRANDA [facility] [place] [address] * (ABNORMAL) Sedimentation rate (07/02/2022 6:15 AM EST) Sedimentation Rate Automated 89(H) 2 - 37 mm/hr [facility] Comment: Effective April 06, 2019 new capillary photometric technology has resulted in a change in reference ranges. It is recommended that each ESR result be reviewed with its own age appropriate reference range. Blood 07/02/2022 6:15 AM EST 07/02/2022 6:49 AM EST Narrative Resulting Agency Comment Spec In Lab Ian Duarte MD HEMATOLOGY ORDE RABLES [facility] [place] [address] * Blood culture (07/01/2022 8:21 PM EST) Pathologist [facility] Blood Culture No growth at 5 days. [facility] Blood 07/01/2022 8:21 PM EST 07/01/2022 8:57 PM EST Comment:RH Narrative Resulting Agency Comment Spec In Lab Ian Duarte MD MICROBIOLOGY - BLOOD ORDERABLES Performing Organization Address City/[facility]/ZIP Co de Phone Number [facility] [place] [address] * Magnesium (07/01/2022 6:14 PM EST) Pathologist [facility] Magnesium 0.74 0.69 - 1.07 mmol/L [facility] Blood 07/01/2022 6:14 PM EST 07/01/2022 6:21 PM EST Narrative Resulting Agency Comment Spec In Lab Ian Duarte MD CHEMISTRY ORDER MYRANDA Performing Organization Address City/[facility]/ZIP Co de Phone Number [facility] [place] [address] * Lactate, whole blood, [place] lab [place] (07/01/2022 6:14 PM EST) Pathologist [facility] Lactate WB 1.7 0.5 - 2.2 mmol/L [facility] Blood 07/01/2022 6:14 PM EST 07/01/2022 6:21 PM EST Narrative Resulting Agency Comment Spec In Lab Ian Duarte MD CHEMISTRY ORDER MYRANDA [facility] [place] [address] * IR Drain Check/Change/Remove (07/01/2022 3:35 PM [...] sterile barrier technique was used throughout. ?? Adult Psychiatrist fluoroscopic images were obtained. ??Contrast was injected [...] (Bezet) 443 ms MUSE SYSTEM Calculated P [place] 37 degrees MUSE SYSTEM Calculated R [place] 62 degrees MUSE SYSTEM Calculated T [place] 19 degrees MUSE SYSTEM INTERPRETATION Sinus tachycardia Nonspecific T wave abnormality Otherwise normal ECG When compared with ECG of 29-JUN-2022 08:55, No significant change was found Confirmed by Lyndon Lafleur ([id number]) on 07/02/2022 5:10:53 PM MUSE SYSTEM 07/01/2022 2:17 PM EST 07/02/2022 5:10 PM EST Ian Duarte MD ECG ORDERABLES MUSE SYSTEM * Differential, Automated (07/01/2022 5:50 AM EST) Neutrophil % 75.5 % [facility] Neutrophil Absolute 4.41 1.70 - 6.10 x10(3)/[facility] LABORATORY Lymph % 15.0 % [facility] Lymphocytes Abs 0.9 0.9 - 3.2 x10(3)/[facility] [address] LABORATORY Monocyte % 7.7 % [facility] Monocyte Abs 0.4 0.3 - 0.9 x10(3)/[facility] [address] [facility]ATORY Eos % 1.0 % [facility] Eosinophils Abs 0.1 0.0 - 0.4 x10(3)/[facility] [address] [facility] LABORATORY Basophil % 0.5 % [facility] Baso Absolute 0.0 0.0 - 0.1 x10(3)/[facility] LABORATORY Immature Gran % 0.30 % [facility] Comment: Immature granulocytes(IG's)percentage and absolute count will include metamyelocytes, myelocytes, and promyelocytes. Blood smears from CBCs yielding IG's will be scanned manually for concordance. If this scan disagrees with the automated IG or if promyelocytes are noted, a manual differential will be performed. Immature Gran Absolute 0.02 0.00 - 0.04 x10(3)/[facility] LAB[facility]ATORY Blood 07/01/2022 5:50 AM EST 07/01/2022 6:17 AM EST Narrative Resulting Agency Comment Spec In Lab Estevan Alfaro MD HEMATOLOGY ORDERABLE S [facility] [place] [address] * (ABNORMAL) Hemogram (07/01/2022 5:50 AM EST) White Blood Cell 5.8 4.0 - 9.5 x10(3)/mc L [facility] Red Blood Cell 3.84(L) 4.00 - 5.21 x10(6)/mc L [facility] Hemoglobin 9.3(L) 11.7 - 15.5 g/dL [facility] Hematocrit 29.6(L) 35.7 - 45.8 % [facility] Mean Cell Volume 77.1(L) 82.6 - 94.4 fL [facility] Mean Cell Hemoglobin 24.2(L) 27.1 - 32.0 pg [facility] Mean Cell Hemoglobin Concentration 31.4(L) 31.7 - 35.0 g/dL [facility] Platelet 352 145 - 357 x10(3)/mc L [facility] RDW Standard Deviation 51.2(H) 37.0 - 46.0 fL [facility] RDW coefficient of variation 18.6(H) 11.5 - 14.1 % [facility] Mean Platelet Volume 9.3 7.6 - 12.9 fL [facility] NRBC% auto 0.0 % [facility] NRBC Absolute 0.000 0.000 - 0.000 x10(3)/mc L [facility] Blood 07/01/2022 5:50 AM EST 07/01/2022 6:17 AM EST Narrative Resulting Agency Comment Spec In Lab Estevan Alfaro MD HEMATOLOGY ORDERABLE S Performing Organization Address [facility] Co de Phone Number [facility] [place] [address] * (ABNORMAL) CRP, acute inflammation (07/01/2022 5:50 AM EST) C-Reactive Protein 53.1(H) <=4.9 mg/L [facility] Comment:result rechecked-KS Blood 07/01/2022 5:50 AM EST 07/01/2022 6:17 AM EST Narrative Resulting Agency Comment Spec In Lab Ian Duarte MD CHEMISTRY ORDER MYRANDA Performing Organization Address [facility] Co de Phone Number [facility] [place] [address] * (ABNORMAL) Sedimentation rate (07/01/2022 5:50 AM EST) Sedimentation Rate Automated >119(H) 2 - 37 mm/hr [facility] Comment: Effective April 06, 2019 new capillary photometric technology has resulted in a change in reference ranges. It is recommended that each ESR result be reviewed with its own age appropriate reference range. Blood 07/01/2022 5:50 AM EST 07/01/2022 6:17 AM EST Narrative Resulting Agency Comment Spec In Lab Ian Duarte MD HEMATOLOGY ORDE RABLES Performing Organization Address City/[facility]/ZIP Co de Phone Number [facility] [place] [address] * (ABNORMAL) BMP w/fasting Glucose (07/01/2022 5:50 AM EST) [facility] Signature Glucose Fasting 95 65 - 99 mg/dL [facility] Comment: ?Fasting* Glucose Interpretive Criteria [...] of Diabetes Mellitus, Position Statement from the [employer]. ??Diabetes Care, Volume 33, Supplement 1, Apr 2009 Blood Urea Nitrogen 10 8 - 18 mg/dL [facility] Creatinine 0.25(L) 0.70 - 1.20 mg/dL [facility] Sodium 138 135 - 145 mmol/L [facility] Potassium 4.1 3.5 - 5.0 mmol/L [facility] Comment: Please note: ??Patients with WBC >100,000 may have falsely elevated Potassium levels. ??For accurate Potassium quantification in these patients send serum separator tube (gold top) for subsequent determinations. ??Contact the Clinical Chemistry Laboratory if there are any questions. Chloride 103 98 - 107 mmol/L [facility] Carbon Dioxide 24 22 - 31 mmol/L [facility] Anion Gap 11 5 - 15 mmol/L [facility] Calcium 9.0 8.5 - 10.5 mg/dL [facility] Est Glomerular Filtration Rate 154 >=60 mL/min/1. 73 m?? [facility] Comment: This patient's estimated GFR [...] Alfaro MD CHEMISTRY ORDERABLES Performing Organization Address City/[facility]/[place] [address] * Differential, Automated (06/30/2022 4:29 AM EST) Neutrophil % 57.6 % [facility] Neutrophil Absolute 3.68 1.70 - 6.10 x10(3)/[facility] LAB[facility] Lymph % 33.2 % [facility] Lymphocytes Abs 2.1 0.9 - 3.2 x10(3)/[facility]ORY Monocyte % 7.0 % [facility] Monocyte Abs 0.4 0.3 - 0.9 x10(3)/[facility] Eos % 1.4 % [facility] Eosinophils Abs 0.1 0.0 - 0.4 x10(3)/[facility] Basophil % 0.5 % [facility] Baso Absolute 0.0 0.0 - 0.1 x10(3)/[facility] Immature Gran % 0.30 % [facility] Comment: Immature granulocytes(IG's)percentage and absolute count will include metamyelocytes, myelocytes, and promyelocytes. Blood smears from CBCs yielding IG's will be scanned manually for concordance. If this scan disagrees with the automated IG or if promyelocytes are noted, a manual differential will be performed. Immature Gran Absolute 0.02 0.00 - 0.04 x10(3)/[facility] Blood 06/30/2022 4:29 AM EST 06/30/2022 4:51 AM EST Narrative Resulting Agency Comment Spec In Lab Estevan Alfaro MD HEMATOLOGY ORDERABLE S Performing Organization Address City/[facility]/ZIP Co de Phone [place] [facility] [address] * (ABNORMAL) Hemogram (06/30/2022 4:29 AM EST) White Blood Cell 6.4 4.0 - 9.5 x10(3)/ L [facility] Red Blood Cell 3.96(L) 4.00 - 5.21 x10(6)/ L [facility] Hemoglobin 9.4(L) 11.7 - 15.5 g/dL [facility] Hematocrit 30.4(L) 35.7 - 45.8 % [facility] Mean Cell Volume 76.8(L) 82.6 - 94.4 fL [facility] Mean Cell Hemoglobin 23.7(L) 27.1 - 32.0 pg [facility] Mean Cell Hemoglobin Concentration 30.9(L) 31.7 - 35.0 g/dL [facility] Platelet 349 145 - 357 x10(3)/ L [facility] RDW Standard Deviation 50.4(H) 37.0 - 46.0 fL [facility] RDW coefficient of variation 18.4(H) 11.5 - 14.1 % [facility] Mean Platelet Volume 9.3 7.6 - 12.9 fL [facility] NRBC% auto 0.0 % [facility] NRBC Absolute 0.000 0.000 - 0.000 x10(3)/ L [facility] Blood 06/30/2022 4:29 AM EST 06/30/2022 4:51 AM EST Narrative Resulting Agency Comment Spec In Lab Estevan Alfaro MD HEMATOLOGY ORDERABLE S [facility] [place] [address] * (ABNORMAL) BMP w/fasting Glucose (06/30/2022 4:29 AM EST) Glucose Fasting 86 65 - 99 mg/dL [facility] Comment: ?Fasting* Glucose Interpretive Criteria [...] of Diabetes Mellitus, Position Statement from the [employer]. ??Diabetes Care, Volume 33, Supplement 1, Apr 2009 Blood Urea Nitrogen 11 8 - 18 mg/dL [facility] Creatinine 0.22(L) 0.70 - 1.20 mg/dL [facility] Sodium 142 135 - 145 mmol/L [facility] Potassium 3.7 3.5 - 5.0 mmol/L [facility] Comment: Please note: ??Patients with WBC >100,000 may have falsely elevated Potassium levels. ??For accurate Potassium quantification in these patients send serum separator tube (gold top) for subsequent determinations. ??Contact the Clinical Chemistry Laboratory if there are any questions. Chloride 105 98 - 107 mmol/L [facility] Carbon Dioxide 25 22 - 31 mmol/L [facility] Anion Gap 12 5 - 15 mmol/L [facility] Calcium 8.9 8.5 - 10.5 mg/dL [facility] Est Glomerular Filtration Rate 159 >=60 mL/min/1. 73 m?? [facility] Comment: This patient's estimated GFR [...] Alfaro MD CHEMISTRY ORDERABLES Performing Organization Address City/[facility]/ZIP Co de Phone Number [facility] [place] [address] * EKG 12 Lead (06/29/2022 8:55 AM EST) Pathologist [facility] Ventricular rate 112 BPM MUSE SYSTEM Atrial Rate 112 BPM MUSE SYSTEM P-R Interval 124 ms MUSE SYSTEM QRS Duration 78 ms MUSE SYSTEM Q-T Interval 336 ms MUSE SYSTEM QTC Calculated (Bezet) 458 ms MUSE SYSTEM Calculated P [place] 22 degrees MUSE SYSTEM Calculated R [place] 8 degrees MUSE SYSTEM Calculated T [place] 69 degrees MUSE SYSTEM INTERPRETATION Sinus tachycardia Nonspecific T wave abnormality Abnormal ECG When compared with ECG of 26-JUN-2022 20:46, Minimal criteria for Inferior infarct are no longer Present Nonspecific T wave abnormality, worse in Lateral leads Confirmed by MD Shabazz Danette ([id number]) on 06/29/2022 9:49:48 PM MUSE SYSTEM 06/29/2022 8:55 AM EST 06/29/2022 9:49 PM EST Estevan Alfaro MD ECG ORDERABLES Performing Organization Address [facility]/ZIP Co de Phone Number MUSE SYSTEM * TSH (06/29/2022 5:58 AM EST) Pathologist [facility] Thyroid Stimulating Hormone 1.84 0.27 - 4.20 mcIU/mL [facility] Comment: Reference Interval (mcIU/mL): Females: ??First Trimester: 0.23-3.88 ??Second Trimester: 0.22-3.90 ??Third Trimester: 0.44-4.66 Blood Venous Draw / Unknown 06/29/2022 5:58 AM EST 06/29/2022 6:10 AM EST Narrative Resulting Agency Comment Spec In Lab Estevan Alfaro MD CHEMISTRY ORDERABLES Performing Organization Address City/[facility]/ZIP Co de Phone Number [facility] [place] [address] * Magnesium (06/29/2022 5:58 AM EST) [facility] Magnesium 0.88 0.69 - 1.07 mmol/L [facility] Blood Venous Draw / Unknown 06/29/2022 5:58 AM EST 06/29/2022 6:10 AM EST Narrative Resulting Agency Comment Spec In Lab Estevan Alfaro MD CHEMISTRY ORDERABLES Performing Organization Address City/[facility]/ZIP Co de Phone Number [facility] [place] [address] * Differential, Automated (06/29/2022 5:58 AM EST) Neutrophil % 61.0 % [facility] Neutrophil Absolute 3.44 1.70 - 6.10 x10(3)/[facility] Lymph % 26.5 % [facility] Lymphocytes Abs 1.5 0.9 - 3.2 x10(3)/[facility] LABORATORY Monocyte % 9.0 % [facility] Monocyte Abs 0.5 0.3 - 0.9 x10(3)/[facility] LABORATORY Eos % 2.1 % [facility] Eosinophils Abs 0.1 0.0 - 0.4 x10(3)/[facility] LABORATORY Basophil % 0.9 % [facility] Baso Absolute 0.0 0.0 - 0.1 x10(3)/[facility]ORY Immature Gran % 0.50 % [facility] Comment: Immature granulocytes(IG's)percentage and absolute count will include metamyelocytes, myelocytes, and promyelocytes. Blood smears from CBCs yielding IG's will be scanned manually for concordance. If this scan disagrees with the automated IG or if promyelocytes are noted, a manual differential will be performed. Immature Gran Absolute 0.03 0.00 - 0.04 x10(3)/[facility] Blood 06/29/2022 5:58 AM EST 06/29/2022 6:06 AM EST Narrative Resulting Agency Comment Spec In Lab Estevan Alfaro MD HEMATOLOGY ORDERABLE S Performing Organization Address City/[facility]/[place] [address] * (ABNORMAL) Hemogram (06/29/2022 5:58 AM EST) White Blood Cell 5.6 4.0 - 9.5 x10(3)/ L [facility] Red Blood Cell 4.11 4.00 - 5.21 x10(6)/mc L [facility] Hemoglobin 9.8(L) 11.7 - 15.5 g/dL [facility] Hematocrit 31.7(L) 35.7 - 45.8 % [facility] Mean Cell Volume 77.1(L) 82.6 - 94.4 fL [facility] Mean Cell Hemoglobin 23.8(L) 27.1 - 32.0 pg [facility] Mean Cell Hemoglobin Concentration 30.9(L) 31.7 - 35.0 g/dL [facility] Platelet 345 145 - 357 x10(3)/mc L [facility] RDW Standard Deviation 50.5(H) 37.0 - 46.0 fL [facility] RDW coefficient of variation 18.3(H) 11.5 - 14.1 % [facility] Mean Platelet Volume 9.2 7.6 - 12.9 fL [facility] NRBC% auto 0.0 % [facility] NRBC Absolute 0.000 0.000 - 0.000 x10(3)/ L [facility] Blood 06/29/2022 5:58 AM EST 06/29/2022 6:06 AM EST Narrative Resulting Agency Comment Spec In Lab Estevan Alfaro MD HEMATOLOGY ORDERABLE S Performing Organization Address City/State/[facility] Co de Phone Number [facility] [place] [address] * (ABNORMAL) BMP w/fasting Glucose (06/29/2022 5:58 AM EST) Glucose Fasting 90 65 - 99 mg/dL [facility] Comment: ?Fasting* Glucose Interpretive Criteria [...] of Diabetes Mellitus, Position Statement from the [employer] Diabetes [employer]. ??Diabetes Care, Volume 33, Supplement 1, Apr 2009 Blood Urea Nitrogen 11 8 - 18 mg/dL [facility] Creatinine 0.25(L) 0.70 - 1.20 mg/dL [facility] Sodium 134(L) 135 - 145 mmol/L [facility] Potassium 4.1 3.5 - 5.0 mmol/L [facility] Comment: Please note: ??Patients with WBC >100,000 may have falsely elevated Potassium levels. ??For accurate Potassium quantification in these patients send serum separator tube (gold top) for subsequent determinations. ??Contact the Clinical Chemistry Laboratory if there are any questions. Chloride 102 98 - 107 mmol/L [facility] Carbon Dioxide 21(L) 22 - 31 mmol/L [facility] Anion Gap 11 5 - 15 mmol/L [facility] Calcium 9.0 8.5 - 10.5 mg/dL [facility] Est Glomerular Filtration Rate 154 >=60 mL/min/1. 73 m?? [facility] Comment: This patient's estimated GFR [...] In Lab Estevan Alfaro MD CHEMISTRY ORDERABLES [facility] [place] [address] * (ABNORMAL) Respiratory Panel PCR (06/28/2022 2:58 PM EST) Respiratory Panel Source [employer] Sw[employer] [facility] Respiratory Panel PCR Positive(A) Negative [facility] Comment: Respiratory Panels are performed on the [employer], using multiplexed PCR nucleic acid detection. ??Negative results do not preclude respiratory infection and should not be used as the sole basis for diagnosis, treatment or other management decisions. Adenovirus Not Detected Not Detected [facility] Coronavirus HKU1 Not Detected Not Detected [facility] Coronavirus NL63 Not Detected Not Detected [facility] Coronavirus 229E Not Detected Not Detected [facility] Coronavirus OC43 Not Detected Not Detected [facility] SARS-CoV-2 Not Detected Not Detected [facility] Comment: Testing for SARS-CoV-2 (Severe acute respiratory syndrome coronavirus 2) to aid in the diagnosis of COVID-19 is performed using the Expert[employer]acone Respiratory Panel 2.1 (NMRKT) as authorized by the FDA issued Emergency Use Authorization (EUA). This panel also tests for multiple other viral and bacterial pathogens. This assay is intended for In-vitro Diagnostic (IVD) use with nasopharyngeal swabs in viral transport media. The assay is performed based on the instructions for use and additional guidance provided by the FDA. Testing is performed in laboratories within the [facility], each of which is [...] fact sheets at the following FDA website: https://www.fda.gov/medical-devices/hxqidrdhifk-kjjqgap-5081-ykzji-42-pcoekhrxz- use-a eslphbvaxsark-mooepvy-beoyzyw/frtbx-ataxnfstgcw-bczn Human Metapneumovirus Not Detected Not Detected [facility] Human Rhinovirus/Enterov irus Not Detected Not Detected [facility] Influenza A Not Detected Not Detected [facility] Influenza B Not Detected Not Detected [facility] Parainfluenza 1 Not Detected Not Detected [facility] Parainfluenza 2 Not Detected Not Detected [facility] Parainfluenza 3 Detected(A) Not Detected [facility] Parainfluenza 4 Not Detected Not Detected [facility] Respiratory Syncytial Virus Not Detected Not Detected [facility] Chlamydophila pneumoniae Not Detected Not Detected [facility] Mycoplasma pneumoniae Not Detected Not Detected [facility] Nasopharyngeal Swab 06/29/19 2:58 PM EST 06/28/2022 4:24 PM EST Narrative Resulting Agency Comment Spec In Lab Estevan Alfaro MD MICROBIOLOGY - GENER AL ORDERABLES [facility] [place] [address] * Differential, Automated (06/28/2022 5:38 AM EST) Neutrophil % 54.1 % [facility] Neutrophil Absolute 3.04 1.70 - 6.10 x10(3)/mcL [facility] Lymph % 34.3 % [facility] Lymphocytes Abs 1.9 0.9 - 3.2 x10(3)/[facility] Monocyte % 8.7 % [facility] Monocyte Abs 0.5 0.3 - 0.9 x10(3)/[facility] Eos % 2.0 % [facility] Eosinophils Abs 0.1 0.0 - 0.4 x10(3)/[facility] Basophil % 0.5 % [facility] Baso Absolute 0.0 0.0 - 0.1 x10(3)/[facility] Immature Gran % 0.40 % [facility] Comment: Immature granulocytes(IG's)percentage and absolute count will include metamyelocytes, myelocytes, and promyelocytes. Blood smears from CBCs yielding IG's will be scanned manually for concordance. If this scan disagrees with the automated IG or if promyelocytes are noted, a manual differential will be performed. Immature Gran Absolute 0.02 0.00 - 0.04 x10(3)/[facility] [address] [facility] Blood 06/28/2022 5:38 AM EST 06/28/2022 5:54 AM EST Narrative Resulting Agency Comment Spec In Lab Anurag Call DO HEMATOLOGY ORDERABLE S Performing Organization Address City/State/[facility] Co de Phone Number [facility] [place] [address] * (ABNORMAL) Hemogram (06/28/2022 5:38 AM EST) White Blood Cell 5.6 4.0 - 9.5 x10(3)/mc L [facility] Red Blood Cell 4.08 4.00 - 5.21 x10(6)/mc L [facility] Hemoglobin 9.9(L) 11.7 - 15.5 g/dL [facility] Hematocrit 31.6(L) 35.7 - 45.8 % [facility] Mean Cell Volume 77.5(L) 82.6 - 94.4 fL [facility] Mean Cell Hemoglobin 24.3(L) 27.1 - 32.0 pg [facility] Mean Cell Hemoglobin Concentration 31.3(L) 31.7 - 35.0 g/dL [facility] Platelet 371(H) 145 - 357 x10(3)/mc L [facility] RDW Standard Deviation 50.5(H) 37.0 - 46.0 fL [facility] RDW coefficient of variation 18.2(H) 11.5 - 14.1 % [facility] Mean Platelet Volume 9.3 7.6 - 12.9 fL [facility] NRBC% auto 0.0 % [facility] NRBC Absolute 0.000 0.000 - 0.000 x10(3)/mc L [facility] Blood 06/28/2022 5:38 AM EST 06/28/2022 5:54 AM EST Narrative Resulting Agency Comment Spec In Lab Anurag Call DO HEMATOLOGY ORDERABLE S Performing Organization Address City/[facility] Co de Phone Number [facility] [place] [address] * Magnesium (06/28/2022 5:38 AM EST) Magnesium 0.78 0.69 - 1.07 mmol/L [facility] Blood 06/28/2022 5:38 AM EST 06/28/2022 5:54 AM EST Narrative Resulting Agency Comment Spec In Lab Anurag Call DO CHEMISTRY ORDERABLES Performing Organization Address City/[facility] Co de Phone Number [facility] [place] [address] * (ABNORMAL) Basic Metabolic Panel (non-fasting) (06/28/2022 5:38 AM EST) Glucose 95 65 - 199 mg/dL [facility] Comment:Diabetes: >=200 mg/d L plus symptoms Blood Urea Nitrogen 11 8 - 18 mg/dL [facility] Creatinine 0.27(L) 0.70 - 1.20 mg/dL [facility] Sodium 137 135 - 145 mmol/L [facility] Potassium 4.0 3.5 - 5.0 mmol/L [facility] Comment: Please note: ??Patients with WBC >100,000 may have falsely elevated Potassium levels. ??For accurate Potassium quantification in these patients send serum separator tube (gold top) for subsequent determinations. ??Contact the Clinical Chemistry Laboratory if there are any questions. Chloride 102 98 - 107 mmol/L [facility] Carbon Dioxide 25 22 - 31 mmol/L [facility] Anion Gap 10 5 - 15 mmol/L [facility] Calcium 9.1 8.5 - 10.5 mg/dL [facility] Est Glomerular Filtration Rate 151 >=60 mL/min/1. 73 m?? [facility] Comment: This patient's estimated GFR [...] Call DO CHEMISTRY ORDERABLES Performing Organization Address [facility] Co de Phone Number [facility] [place] [address] * (ABNORMAL) CRP, acute inflammation (06/28/2022 5:38 AM EST) C-Reactive Protein 53.8(H) <=4.9 mg/L [facility] Blood 06/28/2022 5:38 AM EST 06/28/2022 5:54 AM EST Narrative Resulting Agency Comment Spec In Lab Anurag Call DO CHEMISTRY ORDERABLES Performing Organization Address [facility] Co de Phone Number [facility] [place] [address] * (ABNORMAL) Sedimentation rate (06/28/2022 5:38 AM EST) Sedimentation Rate Automated 113(H) 2 - 37 mm/hr [facility] Comment: Effective April 06, 2019 new capillary photometric technology has resulted in a change in reference ranges. It is recommended that each ESR result be reviewed with its own age appropriate reference range. Blood 06/28/2022 5:38 AM EST 06/28/2022 5:54 AM EST Narrative Resulting Agency Comment Spec In Lab Anurag Call DO HEMATOLOGY ORDERABLE S [facility] [place] [address] * Differential, Automated (06/27/2022 5:58 AM EST) Neutrophil % 50.4 % [facility] Neutrophil Absolute 2.79 1.70 - 6.10 x10(3)/[facility] Lymph % 38.7 % [facility] Lymphocytes Abs 2.1 0.9 - 3.2 x10(3)/[facility] Monocyte % 8.0 % [facility] Monocyte Abs 0.4 0.3 - 0.9 x10(3)/[facility] Eos % 1.8 % [facility] Eosinophils Abs 0.1 0.0 - 0.4 x10(3)/[facility] Basophil % 0.7 % [facility] Baso Absolute 0.0 0.0 - 0.1 x10(3)/[facility] Immature Gran % 0.40 % [facility] Comment: Immature granulocytes(IG's)percentage and absolute count will include metamyelocytes, myelocytes, and promyelocytes. Blood smears from CBCs yielding IG's will be scanned manually for concordance. If this scan disagrees with the automated IG or if promyelocytes are noted, a manual differential will be performed. Immature Gran Absolute 0.02 0.00 - 0.04 x10(3)/[facility] Blood 06/27/2022 5:58 AM EST 06/27/2022 6:24 AM EST Narrative Resulting Agency Comment Spec In Lab Eddi Vázquez MD HEMATOLOGY ORDERABLE S [facility] [place] [address] * (ABNORMAL) Hemogram (06/27/2022 5:58 AM EST) White Blood Cell 5.5 4.0 - 9.5 x10(3)/mc L [facility] Red Blood Cell 3.85(L) 4.00 - 5.21 x10(6)/mc L [facility] Hemoglobin 9.2(L) 11.7 - 15.5 g/dL [facility] Hematocrit 30.0(L) 35.7 - 45.8 % [facility] Mean Cell Volume 77.9(L) 82.6 - 94.4 fL [facility] Mean Cell Hemoglobin 23.9(L) 27.1 - 32.0 pg [facility] Mean Cell Hemoglobin Concentration 30.7(L) 31.7 - 35.0 g/dL [facility] Platelet 389(H) 145 - 357 x10(3)/mc L [facility] RDW Standard Deviation 50.5(H) 37.0 - 46.0 fL [facility] RDW coefficient of variation 17.9(H) 11.5 - 14.1 % [facility] Mean Platelet Volume 9.4 7.6 - 12.9 fL [facility] NRBC% auto 0.0 % [facility] NRBC Absolute 0.000 0.000 - 0.000 x10(3)/mc L [facility] Blood 06/27/2022 5:58 AM EST 06/27/2022 6:24 AM EST Narrative Resulting Agency Comment Spec In Lab Eddi Vázquez MD HEMATOLOGY ORDERABLE S [facility] [place] [address] * (ABNORMAL) Basic Metabolic Panel (non-fasting) (06/27/2022 5:58 AM EST) Glucose 97 65 - 199 mg/dL [facility] Comment:Diabetes: >=200 mg/d L plus symptoms Blood Urea Nitrogen 12 8 - 18 mg/dL [facility] Creatinine 0.32(L) 0.70 - 1.20 mg/dL [facility] Sodium 138 135 - 145 mmol/L [facility] Potassium 3.9 3.5 - 5.0 mmol/L [facility] Comment: Please note: ??Patients with WBC >100,000 may have falsely elevated Potassium levels. ??For accurate Potassium quantification in these patients send serum separator tube (gold top) for subsequent determinations. ??Contact the Clinical Chemistry Laboratory if there are any questions. Chloride 102 98 - 107 mmol/L [facility] Carbon Dioxide 25 22 - 31 mmol/L [facility] Anion Gap 11 5 - 15 mmol/L [facility] Calcium 9.2 8.5 - 10.5 mg/dL [facility] Est Glomerular Filtration Rate 145 >=60 mL/min/1. 73 m?? [facility] Comment: This patient's estimated GFR [...] In Lab Eddi Vázquez MD CHEMISTRY ORDERABLES [facility] [place] [address] * (ABNORMAL) Blood Gas Venous (NL) (06/26/2022 9:01 PM EST) pH, Venous 7.45(H) 7.32 - 7.42 [facility] PCO2, Venous 40(L) 41 - 51 mmHg [facility] PO2, Venous 70(H) 25 - 40 mmHg [facility] Bicarbonate, Venous 27.2 mmol/L [facility] Base Excess, Venous 3.2 mmol/L [facility] Hgb Blood Gas 11.5(L) 11.7 - 15.5 g/dL [facility] Oxyhemoglobin, Venous 94.6 % [facility] Carboxyhemoglob in, Venous 0.1 % [facility] Comment: Nonsmokers: 0.5-1.5% COHB Smokers: Variable, but usually less than 10% Toxic: 20-30% COHB Lethal: Greater than 60% COHB Methemoglobin, Venous 0.3 <=1.5 % [facility] Na Whole Blood 140 135 - 145 mmol/L [facility] K Whole Blood 4.2 3.5 - 5.0 mmol/L [facility] Comment: Please note: Patients with WBC >100,000 may have falsely elevated Potassium levels. Contact the Clinical Chemistry Laboratory if there are any questions. ICa Whole Blood 1.20 1.15 - 1.33 mmol/L [facility] Comment: Note: ??Total bilirubin higher than 20 mg/dL may lead to falsely low ionized calcium. CL Whole Blood 101 98 - 107 mmol/L [facility] Gluc Whole Bld 98 65 - 199 mg/dL [facility] Comment:Diabetes: >=200 mg/d L plus symptoms Lactate WB 1.3 0.5 - 2.2 mmol/L [facility] Blood Gas Source Venous [facility] Blood Venous Draw / Unknown 06/26/2022 9:01 PM EST 06/26/2022 9:07 PM EST Narrative Resulting Agency Comment Spec In Lab Mayank Kang MD CHEMISTRY ORDERABLES [facility] [place] [address] * EKG 12 Lead (06/26/2022 8:46 PM EST) Ventricular rate 136 BPM MUSE SYSTEM Atrial Rate 136 BPM MUSE SYSTEM P-R Interval 126 ms MUSE SYSTEM QRS Duration 72 ms MUSE SYSTEM Q-T Interval 298 ms MUSE SYSTEM QTC Calculated (Bezet) 448 ms MUSE SYSTEM Calculated P [place] 35 degrees MUSE SYSTEM Calculated R [place] 7 degrees MUSE SYSTEM Calculated T [place] 52 degrees MUSE SYSTEM INTERPRETATION Sinus tachycardia Abnormal ECG Confirmed by Altagracia Palomo ([id number]) on 06/27/2022 3:21:46 PM MUSE SYSTEM 06/26/2022 8:46 PM EST 06/27/2022 3:21 PM EST Mayank Kang MD ECG ORDERABLES MUSE SYSTEM * Differential, Automated (06/26/2022 5:38 AM EST) Neutrophil % 55.3 % [facility] Neutrophil Absolute 2.95 1.70 - 6.10 x10(3)/[facility] Lymph % 34.1 % [facility] Lymphocytes Abs 1.8 0.9 - 3.2 x10(3)/[facility] Monocyte % 8.1 % [facility] Monocyte Abs 0.4 0.3 - 0.9 x10(3)/[facility] Eos % 1.7 % [facility] Eosinophils Abs 0.1 0.0 - 0.4 x10(3)/[facility] Basophil % 0.6 % [facility] Baso Absolute 0.0 0.0 - 0.1 x10(3)/[facility] Immature Gran % 0.20 % [facility] Comment: Immature granulocytes(IG's)percentage and absolute count will include metamyelocytes, myelocytes, and promyelocytes. Blood smears from CBCs yielding IG's will be scanned manually for concordance. If this scan disagrees with the automated IG or if promyelocytes are noted, a manual differential will be performed. Immature Gran Absolute 0.01 0.00 - 0.04 x10(3)/[facility] Blood 06/26/2022 5:38 AM EST 06/26/2022 6:21 AM EST Narrative Resulting Agency Comment Spec In Lab Eddi Vázquez MD HEMATOLOGY ORDERABLE S [facility] [place] [address] * (ABNORMAL) Hemogram (06/26/2022 5:38 AM EST) White Blood Cell 5.3 4.0 - 9.5 x10(3)/mc L [facility] Red Blood Cell 4.30 4.00 - 5.21 x10(6)/mc L [facility] Hemoglobin 10.1(L) 11.7 - 15.5 g/dL [facility] Hematocrit 33.5(L) 35.7 - 45.8 % [facility] Mean Cell Volume 77.9(L) 82.6 - 94.4 fL [facility] Mean Cell Hemoglobin 23.5(L) 27.1 - 32.0 pg [facility] Mean Cell Hemoglobin Concentration 30.1(L) 31.7 - 35.0 g/dL [facility] Platelet 467(H) 145 - 357 x10(3)/mc L [facility] RDW Standard Deviation 50.8(H) 37.0 - 46.0 fL [facility] RDW coefficient of variation 18.1(H) 11.5 - 14.1 % [facility] Mean Platelet Volume 9.4 7.6 - 12.9 fL [facility] NRBC% auto 0.0 % [facility] NRBC Absolute 0.000 0.000 - 0.000 x10(3)/ L [facility] Blood 06/26/2022 5:38 AM EST 06/26/2022 6:21 AM EST Narrative Resulting Agency Comment Spec In Lab Eddi Vázquez MD HEMATOLOGY ORDERABLE S Performing Organization Address City/State/[facility] Co de Phone Number [facility] [place] [address] * (ABNORMAL) Basic Metabolic Panel (non-fasting) (06/26/2022 5:38 AM EST) Glucose 97 65 - 199 mg/dL [facility] Comment:Diabetes: >=200 mg/d L plus symptoms Blood Urea Nitrogen 12 8 - 18 mg/dL [facility] Creatinine 0.28(L) 0.70 - 1.20 mg/dL [facility] Sodium 141 135 - 145 mmol/L [facility] Potassium 4.2 3.5 - 5.0 mmol/L [facility] Comment: Please note: ??Patients with WBC >100,000 may have falsely elevated Potassium levels. ??For accurate Potassium quantification in these patients send serum separator tube (gold top) for subsequent determinations. ??Contact the Clinical Chemistry Laboratory if there are any questions. Chloride 103 98 - 107 mmol/L [facility] Carbon Dioxide 26 22 - 31 mmol/L [facility] Anion Gap 12 5 - 15 mmol/L [facility] Calcium 9.3 8.5 - 10.5 mg/dL [facility] Est Glomerular Filtration Rate 150 >=60 mL/min/1. 73 m?? [facility] Comment: This patient's estimated GFR [...] Vázquez MD CHEMISTRY ORDERABLES Performing Organization Address City/State/[facility] Co de Phone Number [facility] [place] [address] * IR All Drainage Procedures (06/25/2022 4:45 [...] 25 cc. Fluoroscopy time: ?? Please see [facility] IR technologist record for procedural dose/time. Cefazolin/ [...] ??The tract was dilated, and an 8 Nigerian drain was advanced over the wire into [...] aspiration demonstrated shiraz pus, and an 8 Nigerian drain was placed using ultrasound guidance as above. I, the attending Interventional Radiologist performed the entire procedure. ?? Eddi Vázquez MD IMG IR ORDERABLES * Anaerobic Culture (06/25/2022 3:12 PM EST) Anaerobic Culture No anaerobic organisms isolated [facility] Fluid 06/25/2022 3:12 PM EST 06/25/2022 5:21 PM EST Comment:Inferior spinal flui d collection Narrative Resulting Agency Comment Spec In Lab Anurag Call DO MICROBIOLOGY - GENER AL ORDERABLES Performing Organization Address City/[facility]/ZIP Co de Phone Number [facility] [place] [address] * Body Fluid Culture, Aerobic (06/25/2022 3:12 PM EST) Body Fluid Culture No growth [facility] Gram Stain Many Neutrophils seen No microorganisms seen. [facility] Fluid 06/25/2022 3:12 PM EST 06/25/2022 5:21 PM EST Comment:Inferior spinal flui d collection Narrative Resulting Agency Comment Spec In Lab Anurag Call DO MICROBIOLOGY - GENER AL ORDERABLES Performing Organization Address City/[facility] Co de Phone Number [facility] [place] [address] * Anaerobic Culture (06/25/2022 3:11 PM EST) Anaerobic Culture No anaerobic organisms isolated [facility] Fluid 06/25/2022 3:11 PM EST 06/25/2022 5:21 PM EST Comment:Superior spinal flui d collection Narrative Resulting Agency Comment Spec In Lab Anurag Call DO MICROBIOLOGY - GENER AL ORDERABLES Performing Organization Address City/[facility] Co de Phone Number [facility] [place] [address] * Body Fluid Culture, Aerobic (06/25/2022 3:11 PM EST) Body Fluid Culture No growth [facility] Gram Stain Many Neutrophils seen No microorganisms seen. [facility] Fluid 06/25/2022 3:11 PM EST 06/25/2022 5:21 PM EST Comment:Superior spinal flui d collection Narrative Resulting Agency Comment Spec In Lab Anurag Call DO MICROBIOLOGY - GENER AL ORDERABLES Performing Organization Address City/[facility] Co de Phone Number [facility] [place] [address] * Blood culture (06/25/2022 8:55 AM EST) Blood Culture No growth at 5 days. [facility] Blood Pediatric STRUCTURE OF RIGHT HAND / Unknown 06/25/2022 8:55 AM EST 06/25/2022 9:16 AM EST Comment:#2 Narrative Resulting Agency Comment Spec In Lab Eddi Vázquez MD MICROBIOLOGY - BLOOD ORDERABLES Performing Organization Address [facility] Co de Phone Number [facility] [place] [address] * Blood culture (06/25/2022 8:55 AM EST) Blood Culture No growth at 5 days. [facility] Blood Pediatric STRUCTURE OF RIGHT UPPER LIMB / Unknown 06/25/2022 8:55 AM EST 06/25/2022 9:16 AM EST Comment:#1 upper Narrative Resulting Agency Comment Spec In Lab Eddi Vázquez MD MICROBIOLOGY - BLOOD ORDERABLES Performing Organization Address [facility] Co de Phone Number [facility] [place] [address] * Differential, Automated (06/25/2022 2:20 AM EST) Neutrophil % 60.4 % [facility] Neutrophil Absolute 4.34 1.70 - 6.10 x10(3)/[facility] Lymph % 30.3 % [facility] Lymphocytes Abs 2.2 0.9 - 3.2 x10(3)/[facility] Monocyte % 7.2 % [facility] Monocyte Abs 0.5 0.3 - 0.9 x10(3)/[facility] Eos % 1.4 % [facility] Eosinophils Abs 0.1 0.0 - 0.4 x10(3)/[facility] Basophil % 0.6 % [facility] Baso Absolute 0.0 0.0 - 0.1 x10(3)/[facility] Immature Gran % 0.10 % [facility] Comment: Immature granulocytes(IG's)percentage and absolute count will include metamyelocytes, myelocytes, and promyelocytes. Blood smears from CBCs yielding IG's will be scanned manually for concordance. If this scan disagrees with the automated IG or if promyelocytes are noted, a manual differential will be performed. Immature Gran Absolute 0.01 0.00 - 0.04 x10(3)/[facility] Blood 06/25/2022 2:20 AM EST 06/25/2022 2:26 AM EST Narrative Resulting Agency Comment Spec In Lab Eddi Vázquez MD HEMATOLOGY ORDERABLE S Performing Organization Address City/State/[facility] Co de Phone Number [facility] [place] [address] * (ABNORMAL) Hemogram (06/25/2022 2:20 AM EST) White Blood Cell 7.2 4.0 - 9.5 x10(3)/mc L [facility] Red Blood Cell 4.06 4.00 - 5.21 x10(6)/mc L [facility] Hemoglobin 9.8(L) 11.7 - 15.5 g/dL [facility] Hematocrit 30.7(L) 35.7 - 45.8 % [facility] Mean Cell Volume 75.6(L) 82.6 - 94.4 fL [facility] Mean Cell Hemoglobin 24.1(L) 27.1 - 32.0 pg [facility] Mean Cell Hemoglobin Concentration 31.9 31.7 - 35.0 g/dL [facility] Platelet 437(H) 145 - 357 x10(3)/mc L [facility] [facility] RDW Standard Deviation 48.7(H) 37.0 - 46.0 fL [facility] RDW coefficient of variation 17.9(H) 11.5 - 14.1 % [facility] Mean Platelet Volume 8.9 7.6 - 12.9 fL [facility] NRBC% auto 0.0 % [facility] NRBC Absolute 0.000 0.000 - 0.000 x10(3)/mc L [facility] Blood 06/25/2022 2:20 AM EST 06/25/2022 2:26 AM EST Narrative Resulting Agency Comment Spec In Lab Eddi Vázquez MD HEMATOLOGY ORDERABLE S [facility] [address] [place] [address] * (ABNORMAL) Basic Metabolic Panel (non-fasting) (06/25/2022 2:20 AM EST) Glucose 97 65 - 199 mg/dL [facility] Comment:Diabetes: >=200 mg/d L plus symptoms Blood Urea Nitrogen 9 8 - 18 mg/dL [facility] Creatinine 0.30(L) 0.70 - 1.20 mg/dL [facility] Sodium 140 135 - 145 mmol/L [facility] Potassium 4.1 3.5 - 5.0 mmol/L [facility] Comment: Please note: ??Patients with WBC >100,000 may have falsely elevated Potassium levels. ??For accurate Potassium quantification in these patients send serum separator tube (gold top) for subsequent determinations. ??Contact the Clinical Chemistry Laboratory if there are any questions. Chloride 103 98 - 107 mmol/L [facility] Carbon Dioxide 27 22 - 31 mmol/L [facility] Anion Gap 10 5 - 15 mmol/L [facility] Calcium 9.4 8.5 - 10.5 mg/dL [facility] Est Glomerular Filtration Rate 147 >=60 mL/min/1. 73 m?? [facility] Comment: This patient's estimated GFR [...] In Lab Eddi Vázquez MD CHEMISTRY ORDERABLES [facility] [place] [address] * CT Lumbar Spine w Contrast (06/24/2022 [...] who have questions please contact the health associate director career services that requested your imaging first. ? Electronically signed by: Jamaal Villafuerte [facility] ([phone]), at 06/24/2022 6:56 PM Narrative 06/24/2022 6:56 [...] patients who have questions please contactthe health associate director career services that requested your imaging first. Electronically signed by: Jamaal Villafuerte [facility]([phone]), at 06/24/2022 6:56 PM Annabella Crawford APRN IMG CT ORDERABLES * Differential, Automated (06/24/2022 4:23 PM EST) Neutrophil % 63.2 % [facility] Neutrophil Absolute 4.29 1.70 - 6.10 x10(3)/[facility] [address] [facility] Lymph % 29.4 % [facility] Lymphocytes Abs 2.0 0.9 - 3.2 x10(3)/[facility] [address] [facility] Monocyte % 4.6 % [facility] Monocyte Abs 0.3 0.3 - 0.9 x10(3)/[facility] [address] [facility] Eos % 1.8 % [facility] Eosinophils Abs 0.1 0.0 - 0.4 x10(3)/[facility] [address] [facility] Basophil % 0.7 % [facility] Baso Absolute 0.0 0.0 - 0.1 x10(3)/[facility] [address] [facility] Immature Gran % 0.30 % [facility] Comment: Immature granulocytes(IG's)percentage and absolute count will include metamyelocytes, myelocytes, and promyelocytes. Blood smears from CBCs yielding IG's will be scanned manually for concordance. If this scan disagrees with the automated IG or if promyelocytes are noted, a manual differential will be performed. Immature Gran Absolute 0.02 0.00 - 0.04 x10(3)/[facility] [address] [facility] Blood 06/24/2022 4:23 PM EST 06/24/2022 4:38 PM EST Narrative Resulting Agency Comment Spec In Lab Kvng SIMMS HEMATOLOGY ORDERABL ES Performing Organization Address City/State/[facility] Co de Phone Number [facility] [place] [address] * (ABNORMAL) Hemogram (06/24/2022 4:23 PM EST) White Blood Cell 6.8 4.0 - 9.5 x10(3)/mc L [facility] Red Blood Cell 4.40 4.00 - 5.21 x10(6)/mc L [facility] Hemoglobin 10.5(L) 11.7 - 15.5 g/dL [facility] Hematocrit 33.6(L) 35.7 - 45.8 % [facility] Mean Cell Volume 76.4(L) 82.6 - 94.4 fL [facility] Mean Cell Hemoglobin 23.9(L) 27.1 - 32.0 pg [facility] Mean Cell Hemoglobin Concentration 31.3(L) 31.7 - 35.0 g/dL [facility] Platelet 516(H) 145 - 357 x10(3)/mc L [facility] RDW Standard Deviation 48.5(H) 37.0 - 46.0 fL [facility] RDW coefficient of variation 17.8(H) 11.5 - 14.1 % [facility] Mean Platelet Volume 9.0 7.6 - 12.9 fL [facility] NRBC% auto 0.0 % [facility] NRBC Absolute 0.000 0.000 - 0.000 x10(3)/mc L [facility] Blood 06/24/2022 4:23 PM EST 06/24/2022 4:38 PM EST Narrative Resulting Agency Comment Spec In Lab Kvng SIMMS HEMATOLOGY ORDERABL ES Performing Organization Address [facility] Co de Phone Number [facility] [place] [address] * (ABNORMAL) Sedimentation rate (06/24/2022 4:23 PM EST) Sedimentation Rate Automated >119(H) 2 - 37 mm/hr [facility] Comment: Effective April 06, 2019 new capillary photometric technology has resulted in a change in reference ranges. It is recommended that each ESR result be reviewed with its own age appropriate reference range. Blood 06/24/2022 4:23 PM EST 06/24/2022 4:38 PM EST Narrative Resulting Agency Comment Spec In Lab Gaby Robert MD HEMATOLOGY ORDERABLE S Performing Organization Address City/[facility]/ZIP Co de Phone Number [facility] [place] [address] * (ABNORMAL) CRP, acute inflammation (06/24/2022 4:23 PM EST) C-Reactive Protein 96.9(H) <=4.9 mg/L [facility] Blood 06/24/2022 4:23 PM EST 06/24/2022 4:38 PM EST Narrative Resulting Agency Comment Spec In Lab Gaby Robert MD CHEMISTRY ORDERABLES [facility] [address] [place] [address] * (ABNORMAL) Basic Metabolic Panel (non-fasting) (06/24/2022 4:23 PM EST) Glucose 97 65 - 199 mg/dL [facility] Comment:Diabetes: >=200 mg/d L plus symptoms Blood Urea Nitrogen 9 8 - 18 mg/dL [facility] Creatinine 0.26(L) 0.70 - 1.20 mg/dL [facility] Sodium 143 135 - 145 mmol/L [facility] Potassium 3.9 3.5 - 5.0 mmol/L [facility] Comment: Please note: ??Patients with WBC >100,000 may have falsely elevated Potassium levels. ??For accurate Potassium quantification in these patients send serum separator tube (gold top) for subsequent determinations. ??Contact the Clinical Chemistry Laboratory if there are any questions. Chloride 104 98 - 107 mmol/L [facility] Carbon Dioxide 27 22 - 31 mmol/L [facility] Anion Gap 12 5 - 15 mmol/L [facility] Calcium 10.0 8.5 - 10.5 mg/dL [facility] Est Glomerular Filtration Rate 152 >=60 mL/min/1. 73 m?? [facility] Comment: This patient's estimated GFR [...] In Lab Gaby Robert MD CHEMISTRY ORDERABLES [facility] [place] [address] documented in this encounter Visit Diagnoses Diagnosis [...] for scheduled level. Warning Vesicant/Irritant Medication , Routine, Indication for (Active or Suspected): Bone/Joint 07/04/2022 1:17 AM EST 1,000 mg 250 [...] for scheduled level. Warning Vesicant/Irritant Medication , Routine, Indication for (Active or Suspected): Bone/Joint New Bag 07/04/2022 9:40 AM EST 750 [...] Vitale LPN) 0852 (Given - Provider: Jigna Neal, EUNICE) PRN Medication Order 07/07/2022 07/08/2022 07/09/2022 acetaminophen [...] PRN, Starting on 07/06/22 at 1354, Until 07/09/22 at 1229, Nausea, Vomiting, Routine sodium chloride [...] documented as of this encounter Care Teams Hatch Tender Relationship Specialty Start Date End Date Lorna Bal APRN [address] [place] [address] PCP - General Family Medicine 05/27/18 documented as of this encounter
--- OUTSIDE RECORDS SUMMARY | 2024-01-12 21:17 | XMS_ITS | Encounter Summary ---
Author Organization [facility]ly [facility] [place] [place] [address] Care Team Providers Care Freight Agent Name Role Phone Lorna Bal APRN Primary Care Provider [phone] Encounter Details Date Type Department Care Team (Late st Contact Info) Description 06/17/2022 Ancillary Procedure Radiology Library at [facility] [place] [phone] Joe Harrison MD [facility] [place] [address] Social History Tobacco Use Types Packs/Day Years [...] Disease at [facility] [place] [phone] Hollie Ambriz MD [facility] [place] [address] documented as of this encounter Procedures Procedure Name Priority Date/Time Associated Diagnosis Comments FILM LIBRARY STORAGE ONLY DX SPINE Routine 06/17/2022 12:00 AM EST documented in this encounter Results * Film Library- Storage Only DX Spine (06/17/2022 12:00 AM EST) Narrative [facility] - 06/19/2022 4:36 PM EST This exam is auto-finalizing. It's purpose is for storage only. Joe Harrison MD IMG FILM LIBRARY ORD ERABLES Performing Organization Address City/State/[facility] Co de Phone Number [place], [place] documented in this encounter Visit Diagnoses Not on filedocumented in this encounter Care Teams Freight Agent Relationship Specialty Start Date End Date Lorna Bal APRN [address] [place] [address] PCP - General Family Medicine 05/27/18 documented as of this encounter
--- OUTSIDE RECORDS SUMMARY | 2024-01-12 21:17 | XMS_ITS | Encounter Summary ---
Author Organization [facility] Address [facility] [place] [address] Care Team Providers Care Tooth Cutter Name Role Phone Lorna Bal APRN Primary Care Provider [phone] Encounter Details Date Type Department Care Team (Late st Contact Info) Description 07/08/2022 Orders Only [place] [address] Jamaal Estrada MD [facility] [place] [address] Spinal abscess; Bacteremia; E coli infection; Soft [...] Office [place] [address] Hollie Ambriz MD [facility] [place] [address] documented as of this encounter Visit Diagnoses [...] documented as of this encounter Care Teams Tooth Cutter Relationship Specialty Start Date End Date Lorna Bal, [place] [address] [place] [address] PCP - General Family Medicine 05/27/18 documented as of this encounter
--- OUTSIDE RECORDS SUMMARY | 2024-01-12 21:17 | XMS_ITS | Encounter Summary ---
Author Organization [facility] Address [facility] [place] [address] Care Team Providers Care Shuttle Buggy Operator Name Role Phone Lorna Bal APRN Primary Care Provider [phone] Encounter Details Date Type Department Care Team (Latest Contact Info) Description 03/18/2019 1:45 PM EST - 03/18/2019 11:59 PM EST Hospital Encounter XRay at [address] [place] [address] Josse Mckee MD [facility] [place] [address] Acquired dysplasia of hip, unspecified laterality Discharge [...] PM EST Office Visit [place] [address] Hollie Ambriz MD [facility] [place] [address] documented as of this encounter Procedures Procedure [...] laterality documented in this encounter Care Teams Shuttle Buggy Operator Relationship Specialty Start Date End Date Lorna Bal APRN [address] [place] [address] PCP - General Family Medicine 05/27/18 documented as of this encounter
--- OUTSIDE RECORDS SUMMARY | 2024-01-12 21:17 | XMS_ITS | Encounter Summary ---
Author Organization [facility] Address [facility] [place] [address] Care Team Providers Care Weight Control Engineer Name Role Phone Lorna Bal APRN Primary Care Provider [phone] Reason for Visit * Reason Comments Cerebral Palsy CP hip dysplasia Encounter Details Date Type Department Care Team (Late st Contact Info) Description 03/18/2019 2:00 PM EST Office [place] [phone] Josse Mckee MD [facility] [address] Acquired dysplasia of hip, unspecified laterality Social [...] NAME: Tana Cavazos AGE: 23 y.o.. MR#: [id number] ? DATE OF VISIT: 03/18/2019 ? STAFF: [...] continued pain. She continues to wear a [place] TLSO brace for her residual curve. She [...] would be continued care with an adult rail director to try to utilize botox/phenol injections to manage her pain. He did recommend [facility] in the [place] area, as a good option for an adult rail director. She can follow up PRN with Dr. Mckee, and will be transitioning to an adult provider. documented in this encounter Plan of Treatment Upcoming Encounters Date Type Department Care Team (Late st Contact Info) Description 06/02/2024 12:30 PM EST Office [place] [address] Hollie Ambriz MD [facility] [place] [address] documented as of this encounter Results * [...] below. ? Electronically signed by: Zander Sherwood [facility] ([phone]), at 03/18/2019 4:22 PM Narrative 03/18/2019 4:22 [...] number below. Electronically signed by: Zander Sherwood [facility]([phone]), at 03/18/2019 4:22 PM Josse Mckee MD IMG DX ORDERABLES documented in this encounter Visit Diagnoses Diagnosis Acquired dysplasia of hip, unspecified laterality Acquired dysplasia of hip, unspecified laterality documented in this encounter Care Teams Weight Control Engineer Relationship Specialty Start Date End Date Lorna Bal APRN [address] [place] [address] PCP - General Family Medicine 05/27/18 documented as of this encounter
--- OUTSIDE RECORDS SUMMARY | 2024-01-12 21:17 | XMS_ITS | Encounter Summary ---
[place] [address] Care Team Providers Care Crib Pad Maker Name Role Phone Lorna Bal APRN Primary Care Provider [phone] Encounter Details Date Type Department Care Team [...] PM EST Office [place] [phone] Hollie Ambriz MD [facility] [place] [address] documented as of this encounter Visit Diagnoses Not on filedocumented in this encounter Additional Health Concerns Infection Onset Date Last Indicated Resolved Time Parainfluenza Virus 06/28/2022 06/28/2022 07/10/19 23 8:09 PM EDT documented as of this encounter Care Teams Crib Pad Maker Relationship Specialty Start Date End Date Lorna Bal APRN [address] [place] [address] PCP - General Family Medicine 05/27/18 documented as of this encounter
--- OUTSIDE RECORDS SUMMARY | 2024-01-12 21:18 | XMS_ITS | Encounter Summary ---
Author Organization [facility] [place] [address] Care Team Providers Care Apparel Sales Associate Name Role Phone Emelyn Easley MD Primary Care Provider [phone] Reason for Visit * Auth/Cert Specialty Diagnoses / Procedures Referred By Contac t Referred To Contact Diagnoses TBI, W/O LOC, SEQUEIA/ACQUIRED DYSPLASIA OF HIP Procedures PRO ANESTH, CAT/MRI SCAN, RADIATN THERAPY BONE SCAN Referral ID Status Reason Start Date Expiration Date Visits Re quested Visits Authorized [id number] 1 1 Encounter Details Date Type Department Care Team (Latest Contact Info) Description 12/30/2016 10:57 AM EDT - 12/30/2016 4:52 PM EDT Hospital Encounter Same Day Program at [facility] [place] [address] Janna Strickland MD [facility] [place] [address] Discharge Disposition: Home Social History Tobacco Use [...] 11:40; without success they called for another clerk checker. I paged at 12:17; person answering says [...] PM EST Office [place] [address] Hollie Ambriz MD [facility] INFECTI[place] [address] documented as of this encounter Procedures Procedure Name Priority Date/Time Associated Diagnosis Comments BONE SCAN 12/30/2016 11:00 PM EDT TBI, W/O LOC, SEQUEIA/ACQUIRED DYSPLASIA OF HIP documented in this encounter Visit Diagnoses Not on filedocumented in this encounter Care Teams Apparel Sales Associate Relationship Specialty Start Date End Date Emelyn Easley MD [address] [place] [address] PCP - General Family Medicine 08/26/16 05/26/18 documented as of this encounter
--- OUTSIDE RECORDS SUMMARY | 2024-01-12 21:18 | XMS_ITS | Encounter Summary ---
Author Organization Formerly [facility] Address [facility] [place] [address] Care Team Providers Care Muck Miner Name Role Phone Naina Lindsey MD Primary Care Provider [phone] Encounter Details Date Type Department Care Team (Late st Contact Info) Description 11/09/2014 9:31 AM EDT - 11/09/2014 11:00 AM EDT Hospital Encounter XRay at [address] [place] [address] Scoliosis Social History Tobacco Use Types Packs/Day [...] PM EST Office [place] [address] Hollie Ambriz MD [facility] [address] [place]FECTI[place] [address] documented as of this encounter Procedures Procedure [...] idiopathic documented in this encounter Care Teams Muck Miner Relationship Specialty Start Date End Date Naina Lindsey MD [address] [place] [address] PCP - General 03/19/10 08/25/16 documented as of this encounter
--- OUTSIDE RECORDS SUMMARY | 2024-01-12 21:18 | XMS_ITS | Encounter Summary ---
Author Organization [place] [address] Care Team Providers Care Giant Tire Repairer Name Role Phone Emelyn Easley MD Primary Care Provider [phone] Reason for Visit * Reason Onset Date Comments Appointment 02/05/2017 Encounter Details Date Type Department Care Team (Late st Contact Info) Description 02/05/2017 Telephone [place] [phone] Sarah Shah APRN [facility] [place] [address] Appointment Social History Tobacco Use Types Packs/Day [...] EST Office Visit [place] [address] Hollie Ambriz MD [facility] [place] [address] documented as of this encounter Visit Diagnoses Not on filedocumented in this encounter Care Teams Giant Tire Repairer Relationship Specialty Start Date End Date Emelyn Easley MD [address] [place] [address] PCP - General Family Medicine 08/26/16 05/26/18 documented as of this encounter
--- OUTSIDE RECORDS SUMMARY | 2024-01-12 21:18 | XMS_ITS | Encounter Summary ---
Author Organization [facility] [place] [address] Care Team Providers Care Client Support Coordinator Name Role Phone Naina Lindsey MD Primary Care Provider [phone] Reason for Referral * Consultation (Routine) - Specialty Diagnoses / Procedures Referred By Contac t Referred To Contact Physical Medicine and Rehab Diagnoses Acquired dysplasia of hip, unspecified laterality Traumatic brain injury, without LOC, sequela Ty Woods MD [facility] [place] [address] Alek Loaiza MD [address] [place] [address] [address] [place] [address] Referral ID Status Reason Start Date Expiration Date V isits Requested Visits Authorized [id number] Consult, Test & Treat 07/29/2016 01/25/2017 1 1 Encounter Details Date Type Department Care Team (Late st Contact Info) Description 07/29/2016 Orders [place] [address] Ty Woods MD [facility] [place] [address] Acquired dysplasia of hip, unspecified laterality; Traumatic [...] PM EST Office Visit [place] [address] Hollie Ambriz MD [facility] [place] [address] Scheduled Referrals Name Type Priority Associated Diagnoses Orde r Schedule Referral to Orthopaedics Outpatient Referral Routine Acquired dysplasia of hip, unspecified laterality Traumatic Brain Injury, Without Loc, Sequela Ordered: 07/29/2016 documented as of this encounter Visit Diagnoses Diagnosis Acquired dysplasia of hip, unspecified laterality Traumatic brain injury, without LOC, sequela documented in this encounter Care Teams Client Support Coordinator Relationship Specialty Start Date End Date Naina Lindsey MD [address] [place] [address] PCP - General 03/19/10 08/25/16 documented as of this encounter
--- OUTSIDE RECORDS SUMMARY | 2024-01-12 21:18 | XMS_ITS | Encounter Summary ---
Author Organization [facility] Address [facility] [place] [address] Care Team Providers Care Chemical Engineer Name Role Phone Emelyn Easley MD Primary Care Provider [phone] Encounter Details Date Type Department Care Team (Late st Contact Info) Description 01/20/2017 Telephone Orthopaedics at [facility] [place] [phone] Vanda Carter PA [facility] [place] [address] Social History Tobacco Use Types Packs/Day Years [...] EST Office Visit [place] [address] Hollie Ambriz MD [facility] [place] [address] documented as of this encounter Visit Diagnoses Not on filedocumented in this encounter Care Teams Chemical Engineer Relationship Specialty Start Date End Date Emelyn Easley MD [address] [place] [address] PCP - General Family Medicine 08/26/16 05/26/18 documented as of this encounter
--- OUTSIDE RECORDS SUMMARY | 2024-01-12 21:18 | XMS_ITS | Encounter Summary ---
Author Organization [facility] Address [facility] [place] [address] Care Team Providers Care Special Education Aide Name Role Phone Lorna Bal APRN Primary Care Provider [phone] Reason for Visit * Auth/Cert Specialty Diagnoses [...] Expiration Date Visits Re quested Visits Authorized [id number] 1 1 Encounter Details Date Type Department Care Team (Late st Contact Info) Description 06/14/2018 9:12 AM EST Anesthesia Event [place] [address] Ty Amin MD [facility] [place] [address] Andrade Baldwin MD [facility] [place] [address] Anesthesia Record Procedure Summary Procedure Name Responsible [...] cleanup utility RA#[id number]) 05/26/14 0000 by Zakia Thomsa RN 12/23/21 1715 by Philippe Bonner Incision [...] 06/14/18; 0917; other (see comments) (right saphenous); ttaa-pwd-htakes catheter system; 22 gauge; Dr. Amin; 1; no longer indicated, removed per policy/procedure, catheter/device intact; 06/14/18; 1218 06/14/18 0917 by Laxmi Fowler, STONE DRILLER HELPER 06/14/18 1218 by Jessica Silva, EUNICE ETT Mask Ventilation: Ea sy (1); ETT Type: Cuffed, Nasal, KRISH; ETT Size: 7 mm; Mac Blade: 3; Notes: Asleep, Pre-O2; Attempts: 1; Laryngoscopy Grade: 1; ETT Placement Verified By: Auscultation, Capnometry, Visual; Secured at Teeth: 21 cm; Inserted by: Dr. Amin; Removal Date: 06/14/18; Removal Time: 1106 06/14/18 0924 by Laxmi Fowler, STONE DRILLER HELPER 06/14/18 1106 by Laxmi Fowler, STONE DRILLER HELPER Incision 06/14/18; 0937; gum; 12/23/21 (LDA cleanup [...] Amin MD - 06/14/2018 11:39 AM EST [facility] [place] Department of Anesthesiology Post-procedure Note Patient: Tana Cavazos Procedure Summary Date: 06/14/18 Room / Location: [facility] [place] [address] [place] [address] Anesthesia Start: 911 Anesthesia Stop: 1117 Procedures: [...] All Anesthesia Providers: Anesthesiologist: Ty Amin MD STONE DRILLER HELPER: Laxmi Fowler CRNA Vitals Value Taken Time BP 128/58 06/14/2018 12:00 PM Temp 36.1 ??C (97 ??F) 06/14/2018 11:15 AM Pulse 95 06/14/2018 11:30 AM Resp 20 06/14/2018 12:00 PM SpO2 97 % 06/14/2018 12:00 PM Pain Level 1 06/14/2018 12:00 PM Patient Location: PACU/[facility] Level [...] BOTH LEGS performed by BARRERA OLIVER at [facility] OR ? ? PRO I&D, POST SPINE, LUMB/SACR/LUMBOSAC N/A 05/20/2014 @I & D, OPEN, DEEP ABSCESS, LUMBAR, SACRAL, LUMBOSACRAL performed by Freddy Isbell MD at [facility] OR ? ? PRO I&D, POST SPINE, LUMB/SACR/LUMBOSAC N/A 05/26/2014 @I & D, OPEN, DEEP ABSCESS, LUMBAR, SACRAL, LUMBOSACRAL performed by Freddy Isbell MD at [facility] OR ??? PRO OSTEOTOMY FEMUR SHAFT/SUPRACONDY 08/15/2010 ??OSTEOTOMY, FEMUR SHAFT OR SUPRACONDYLAR W/O FIXATION performed by BARRERA OLIVER at [facility] OR ??? PRO RECONSTRUC HIP SOCKET, RESEC FEM HEAD 08/15/2010 ??ACETABULOPLASTY (GIRDLESTONE), RESECTION FEMORAL HEAD, BILATERAL performed by BARRERA OLIVER [facility] OR ??? PRO REMOVAL DEEP IMPLANT 08/15/2010 REMOVAL IMPLANT, DEEP, BRUNO performed by BARRERA OLIVER at [facility] OR ??? PRO REMOVE INFUSN [...] [facility] OR Social History Tobacco Use ??? Smoking status: Never Smoker ??? Smokeless tobacco: Never Used ??? Tobacco comment: NO SMOKERS IN THE HOME Substance Use Topics ??? Alcohol use: No Social History Substance and Sexual Activity Drug Use No Allergies Allergen Reactions ??? Fluoxetine Other (See Comments) HIVES, HEART RACES ??? Tegaderm [Transparent Dressings] Itching and Dermatitis Please use [id number] Medications: MAR and/or home medications have been [...] PM EST Office [place] [address] Hollie Ambriz MD [facility] [place] [address] documented as of this encounter Visit Diagnoses [...] EST documented in this encounter Care Teams Special Education Aide Relationship Specialty Start Date End Date Lorna Bal APRN [address] [place] [address] PCP - General Family Medicine 05/27/18 documented as of this encounter
--- OUTSIDE RECORDS SUMMARY | 2024-01-12 21:18 | XMS_ITS | Encounter Summary ---
Author Organization [facility] Address [facility] [place] [address] Care Team Providers Care Power Equipment Mechanics Instructor Name Role Phone Emelyn Easley MD Primary Care Provider [phone] Encounter Details Date Type Department Care Team (Latest Contact Info) Description 11/24/2016 12:03 PM EDT Hospital Encounter XRay at [address] [place] [address] Josse Mckee MD [facility] [place] [address] Neuromuscular scoliosis of lumbar region Discharge Disposition: [...] PM EST Office Visit Infectious Disease at [facility] [address] Hollie Ambriz MD [facility] DR INFECTIOUS [place] [address] documented as of this encounter Procedures Procedure [...] scoliosis documented in this encounter Care Teams Power Equipment Mechanics Instructor Relationship Specialty Start Date End Date Emelyn Easley MD [address] [place] [address] PCP - General Family Medicine 08/26/16 05/26/18 documented as of this encounter
--- OUTSIDE RECORDS SUMMARY | 2024-01-12 21:18 | XMS_ITS | Encounter Summary ---
Author Organization [facility] Address [facility] [place] [address] Care Team Providers Care Phy Therapist Name Role Phone Lorna Bal APRN Primary Care Provider [phone] Reason for Visit * Consultation (Routine) - Closed Specialty Diagnoses / Procedures Referred By Contact Referred To Contact Maxillofacial Surgery Diagnoses wisdom teeth extraction no images Yas Conner, [place] [address] Keith Cotton MD [facility] ORAL [place] [address] Referral ID Status Reason Start Date Expiration Date Visits Re quested Visits Authorized [id number] Closed 03/20/2018 03/20/2019 1 1 Encounter Details Date Type Department Care Team (Late st Contact Info) Description 05/27/2018 11:00 AM EST Office Visit [place] [address] Keith Cotton MD [facility] [place] [address] Impacted teeth Social History Tobacco Use Types [...] is referred to us by at [facility] for consultation regarding wisdom teeth dental [...] [Transparent Dressings] Itching and Dermatitis Please use [id number] ROS with attention to cardiac, pulmonary, hepatic, [...] PM EST Office [place] [address] Hollie Ambriz MD [facility] [place] [address] documented as of this encounter Visit Diagnoses Diagnosis Impacted teeth documented in this encounter Care Teams Phy Therapist Relationship Specialty Start Date End Date Lorna Bal APRN [address] [place] [address] PCP - General Family Medicine 05/27/18 documented as of this encounter
--- OUTSIDE RECORDS SUMMARY | 2024-01-12 21:18 | XMS_ITS | Encounter Summary ---
Author Organization [facility] Address [facility] [place] [address] Care Team Providers Care Dining Services Director Name Role Phone Naina Lindsey MD Primary Care Provider [phone] Encounter Details Date Type Department Care Team (Latest Contact Info) Description 07/31/2015 11:18 AM EDT Hospital Encounter XRay at [address] [place] [address] Mesha Cabral MD [facility] [place] [address] Neuromuscular scoliosis of lumbar region; Traumatic brain [...] PM EST Office Visit [place] [address] Hollie Ambriz MD [facility] [place] [address] documented as of this encounter Procedures Procedure [...] sequela documented in this encounter Care Teams Dining Services Director Relationship Specialty Start Date End Date Naina Lindsey MD [address] [place] [address] PCP - General 03/19/10 08/25/16 documented as of this encounter
--- OUTSIDE RECORDS SUMMARY | 2024-01-12 21:18 | XMS_ITS | Encounter Summary ---
Author Organization [facility] [address] Care Team Providers Care Cco Name Role Phone Naina Lindsey MD Primary Care Provider [phone] Reason for Referral * Consultation (Routine) - Closed Specialty Diagnoses / Procedures Referred By Contac t Referred To Contact Neurology Diagnoses Traumatic brain injury, without loss of consciousness, sequela Spasticity Contracture of elbow, left Mesha Cabral MD [facility] [place] [address] Myah Abdi, [facility] [place] [address] Referral ID Status Reason Start Date Expiration Date V isits Requested Visits Authorized [id number] Closed Consult, Test & Treat 07/31/2015 07/30/2016 1 1 * Consultation (Routine) - Closed Specialty Diagnoses / Procedures Referred By Contac t Referred To Contact Diagnoses Traumatic brain injury, without loss of consciousness, sequela Spasticity Contracture of elbow, left Mesha Cabral MD [facility] [place] [address] Unknown None Referral ID Status Reason Start Date Expiration Date V isits Requested Visits Authorized [id number] Closed Consult, Test & Treat 07/31/2015 01/27/2016 1 1 Reason for Visit * Reason Comments Right Leg Pain Delayed Development Childhood Encounter Details Date Type Department Care Team (Late st Contact Info) Description 07/31/2015 11:00 AM EDT Office [place] [address] Mesha Cabral MD [facility] [place] [address] Neuromuscular scoliosis of lumbar region; Traumatic brain [...] a followup for this established patient of [employer]. She is 20 years old and has an underlying diagnosis of spastic quadriplegic cerebral palsy. She is accompanied by her mother and gun profiler. Recently it has been noted that she [...] advised Mother that I will be leaving [facility] at the end of September [...] needs. Provider: Mesha Cabral MD [place] [address] documented in this encounter Plan of Treatment Upcoming Encounters Date Type Department Care Team (Late st Contact Info) Description 06/02/2024 12:30 PM EST Office [place] [address] Hollie Ambriz MD [facility] [place] [address] Scheduled Referrals Name Type Priority Associated Diagnoses [...] Progression of remodeling and sclerosis about the torres martinez acetabulum and proximal right femoral fragment status [...] Progression of irregularity and remodeling about the torres martinez acetabulum. The femur remains gracile in nature. [...] Progression of irregularity and remodeling about the torres martinez acetabulum. The femurremains gracile in nature. Absent femoral head. IMPRESSION IMPRESSION: Progression of remodeling and sclerosis about the torres martinez acetabulum andproximal right femoral fragment status post [...] encounter documented in this encounter Care Teams Cco Relationship Specialty Start Date End Date Naina Lindsey MD [address] [place] [address] PCP - General 03/19/10 08/25/16 documented as of this encounter
--- OUTSIDE RECORDS SUMMARY | 2024-01-12 21:18 | XMS_ITS | Encounter Summary ---
Author Organization [facility] Benjamin [place] [address] Care Team Providers Care Tree Marker Name Role Phone Naina Lindsey MD Primary Care Provider [phone] Encounter Details Date Type Department Care Team (Late st Contact Info) Description 11/09/2014 Orders [place] [address] Mesha Cabral MD [facility] [place] [address] Scoliosis Social History Tobacco Use Types Packs/Day [...] PM EST Office [place] [address] Hollie Ambriz MD [facility] [place] [address] documented as of this encounter Visit Diagnoses Diagnosis Scoliosis Scoliosis (and kyphoscoliosis), idiopathic documented in this encounter Care Teams Tree Marker Relationship Specialty Start Date End Date Naina Lindsey MD [address] [place] [address] [place] [address] PCP - General 03/19/10 08/25/16 documented as of this encounter
--- OUTSIDE RECORDS SUMMARY | 2024-01-12 21:18 | XMS_ITS | Encounter Summary ---
[place] [address] Care Team Providers Care Manager Utilization Review Name Role Phone Emelyn Easley MD Primary Care Provider [phone] Reason for Visit * Diagnostic Test (Routine) - Closed Specialty Diagnoses / Procedures Referred By Contac t Referred To Contact Radiology Diagnoses Traumatic brain injury, without LOC, sequela Acquired dysplasia of hip, unspecified laterality Spasticity Neuromuscular scoliosis of lumbar region Procedures NM Whole Body Bone Scan Vanda Carter PA [facility] [place] [address] [place] [address] Referral ID Status Reason Start Date Expiration Date V isits Requested Visits Authorized [id number] Closed Specialty Service Requested 11/24/2016 11/24/2017 1 1 Encounter Details Date Type Department Care Team (Latest Contact Info) Description 12/10/2016 2:00 PM EDT - 12/10/2016 11:59 PM EDT Hospital Encounter [place] [address] Josse Mckee MD [facility] [place] [address] Discharge Disposition: Home Social History [...] PM EST Office Visit [place] [address] Hollie Ambriz MD [facility] [place] [address] documented as of this encounter Procedures Procedure [...] documented in this encounter Care Teams Manager Utilization Review Relationship Specialty Start Date End Date Emelyn Easley MD [address] [place] [address] PCP - General Family Medicine 08/26/16 05/26/18 documented as of this encounter
--- OUTSIDE RECORDS SUMMARY | 2024-01-12 21:18 | XMS_ITS | Encounter Summary ---
Author Organization [facility] Address [facility] [place] [address] Care Team Providers Care Right Of Way Cutter Name Role Phone Lorna Bal APRN Primary Care Provider [phone] Reason for Visit * Auth/Cert Specialty Diagnoses [...] Expiration Date Visits Re quested Visits Authorized [id number] 1 1 Encounter Details Date Type Department Care Team (Late st Contact Info) Description 06/14/2018 8:34 AM EST - 06/14/2018 12:20 PM EST Hospital Encounter [place] [address] Keith Cotton MD [facility] ORAL [place] [address] Discharge Disposition: Home Social History Tobacco Use [...] closest emergency room or call the hospital acetaldehyde converter operator at [phone] and ask for physician building energy consultant covering for your physician. Questions or problems after 5pm or on a weekend: Call the [facility] acetaldehyde converter operator at and ask for the physician building energy consultant covering for your doctor. * Patient [...] may be helpful. Most swelling will occur [id number] hours following the procedure. Mouth Rinse: Vigorous [...] can be reached during office hours at [phone]. If you have questions atnight or on weekends, Dr. Cotton can be reached at [phone]. documented in this encounter Medications at [facility] ??? PRO OSTEOTOMY FEMUR [...] [facility] MAIN OR ??? PRO REMOVE INFUSN DEVICE/PUMP N/A 05/11/2014 REMOVAL OF SPINE INFUSION PUMP performed by Jamaal Samuel MD at [facility] OR ??? PRO REMOVE SPINAL CANAL CATHETER N/A 05/11/2014 REMOVAL OF INTRATHECAL OR EPIDURAL CATHETER performed by Jamaal Samuel MD at [facility] OR ??? PRO REPR, DURAL/CSF LEAK, NOT REQ LAMINECTOMY N/A 05/20/2014 @REPAIR DURAL\CSF LEAK,NOT REQUIRING LAMINECTOMY performed by Freddy Isbell MD at [facility] OR Allergies Allergen Reactions ??? Fluoxetine Other (See Comments) HIVES, HEART RACES ??? Tegaderm [Transparent Dressings] Itching and Dermatitis Please use [id number] No current facility-administered medications on file prior [...] TOOTH (WRVU 1.09) No flowsheet data found. [place] PDMP QUERY DATE: 06/14/18 Risk Assessment Category: [...] No future appointments. Keith Cotton DMD, MD information services manager documented in this encounter Miscellaneous Notes * Op Note - Keith Cotton MD - 06/14/2018 11:06 AM EST [facility] [place] Note Patient Name: Tana Cavazos : [id number] MR#: [id number] Case Date: 06/14/2018 Surgeon: Surgeon(s) and Role: [...] draped in the standard fashion for behavioral services tech. The oral cavity was suctioned and an [...] tooth #32. Mucoperiosteum was reflected laterally andthe [employer] drill was used to remove bone overlying [...] Office [place] [address] Hollie Ambriz MD [facility] [place] [address] documented as of this encounter Procedures Procedure [...] Routine documented in this encounter Care Teams Right Of Way Cutter Relationship Specialty Start Date End Date Lorna Bal APRN [address] [place] [address] PCP - General Family Medicine 05/27/18 documented as of this encounter
--- OUTSIDE RECORDS SUMMARY | 2024-01-12 21:18 | XMS_ITS | Encounter Summary ---
Author [place] [address] Care Team Providers Care Sizing Sponger Name Role Phone Emelyn Easley MD Primary Care Provider [phone] Reason for Visit * Reason Onset Date Comments Appointment 12/10/2016 Encounter Details Date Type Department Care Team (Late st Contact Info) Description 12/10/2016 Telephone [place] [address] Josse Mckee MD [address] [place] [address] Appointment Social History Tobacco Use Types Packs/Day [...] PM EST Office [place] [address] Hollie Ambriz MD [facility] [place] [address] documented as of this encounter Visit Diagnoses Diagnosis Acquired dysplasia of hip, unspecified laterality Neuromuscular scoliosis of lumbar region Other kyphoscoliosis and scoliosis Traumatic brain injury, without LOC, sequela documented in this encounter Care Teams Sizing Sponger Relationship Specialty Start Date End Date Emelyn Easley MD [address] [place] [address] PCP - General Family Medicine 08/26/16 05/26/18 documented as of this encounter
--- OUTSIDE RECORDS SUMMARY | 2024-01-12 21:18 | XMS_ITS | Encounter Summary ---
Author Organization [facility] Address [facility] [place] [address] Care Team Providers Care Torch Straightener And Heater Name Role Phone Naina Lindsey MD Primary Care Provider [phone] Encounter Details Date Type Department Care Team (Latest Contact Info) Description 11/09/2014 11:01 AM EDT - 11/09/2014 11:59 PM EDT Hospital Encounter XRay at [address] [place] [address] Acquired dysplasia of hip, unspecified laterality; Traumatic [...] PM EST Office Visit [place] [address] Hollie Ambriz MD [facility] DR INFECTI[place] [address] documented as of this encounter Procedures Procedure [...] limb documented in this encounter Care Teams Torch Straightener And Heater Relationship Specialty Start Date End Date Naina Lindsey MD [address] [place] [address] PCP - General 03/19/10 08/25/16 documented as of this encounter
--- OUTSIDE RECORDS SUMMARY | 2024-01-12 21:18 | XMS_ITS | Encounter Summary ---
Author Organization [facility] Address [facility] [place] [address] Care Team Providers Care Airconditioning Engineer Name Role Phone Naina Lindsey MD Primary Care Provider [phone] Reason for Visit * Reason Onset Date Comments Appointment 08/02/2015 Encounter Details Date Type Department Care Team (Late st Contact Info) Description 08/02/2015 Telephone [place] [address] Mesha Cabral MD [facility] DR [place] [address] Appointment Social History Tobacco Use Types Packs/Day [...] Office [place] [address] Hollie Ambriz MD [facility] DR [place] [address] documented as of this encounter Visit Diagnoses Not on filedocumented in this encounter Care Teams Airconditioning Engineer Relationship Specialty Start Date End Date Naina Lindsey MD [address] [place] [address] PCP - General 03/19/10 08/25/16 documented as of this encounter
--- OUTSIDE RECORDS SUMMARY | 2024-01-12 21:18 | XMS_ITS | Encounter Summary ---
Author Organization [facility] Benjamin [place] [place] [address] Care Team Providers Care Core Blower Name Role Phone Naina Lindsey MD Primary Care Provider [phone] Encounter Details Date Type Department Care Team (Late st Contact Info) Description 11/09/2014 Orders [place] [address] Mesha Cabral MD [facility] [place] [address] Scoliosis Social History Tobacco Use Types Packs/Day [...] PM EST Office [place] [address] Hollie Ambriz MD [facility] [place] [address] documented as of this encounter Results * [...] idiopathic documented in this encounter Care Teams Core Blower Relationship Specialty Start Date End Date Naina Lindsey MD [address] [place] [address] PCP - General 03/19/10 08/25/16 documented as of this encounter
--- OUTSIDE RECORDS SUMMARY | 2024-01-12 21:18 | XMS_ITS | Encounter Summary ---
Author Organization [facility] Address [facility] [place] [address] Care Team Providers Care Screen Printing Equipment Setter Name Role Phone Naina Lindsey MD Primary Care Provider [phone] Encounter Details Date Type Department Care Team (Latest Contact Info) Description 11/09/2014 11:01 AM EDT - 11/09/2014 11:59 PM EDT Hospital Encounter XRay at [address] [place] [address] Acquired dysplasia of hip, unspecified laterality; Traumatic [...] PM EST Office [place] [address] Hollie Ambriz MD [facility] [place] [address] documented as of this encounter Procedures Procedure [...] limb documented in this encounter Care Teams Screen Printing Equipment Setter Relationship Specialty Start Date End Date Naina Lindsey MD [address] [place] [address] PCP - General 03/19/10 08/25/16 documented as of this encounter
--- OUTSIDE RECORDS SUMMARY | 2024-01-12 21:18 | XMS_ITS | Encounter Summary ---
Author Organization [facility] [place] [address] Care Team Providers Care Tube Building Machine Operator Name Role Phone Emelyn Easley MD Primary Care Provider [phone] Reason for Referral * Diagnostic Test (Routine) - Closed Specialty Diagnoses / Procedures Referred By Contac t Referred To Contact Radiology Diagnoses Traumatic brain injury, without LOC, sequela Acquired dysplasia of hip, unspecified laterality Procedures NM Whole Body Bone Scan Vanda Carter, [place] [address] [facility] [place] [address] Referral ID Status Reason Start Date Expiration Date V isits Requested Visits Authorized [id number] Closed Specialty Service Requested 12/16/2016 12/16/2017 2 2 Reason for Visit * Auth/Cert Specialty Diagnoses / Procedures Referred By Contac t Referred To Contact Diagnoses TBI, W/O LOC, SEQUEIA/ACQUIRED DYSPLASIA OF HIP Procedures PRO ANESTH, CAT/MRI SCAN, RADIATN THERAPY BONE SCAN Referral ID Status Reason Start Date Expiration Date Visits Re quested Visits Authorized [id number] 1 1 Encounter Details Date Type Department Care Team (Latest Contact Info) Description 12/30/2016 12:00 PM EDT - 12/30/2016 2:56 PM EDT Hospital En[place] [address] Josse Mckee MD [facility] [place] [address] Traumatic brain injury, without LOC, sequela; Acquired [...] PM EST Office [place] [address] Hollie Ambriz MD [facility] [place] [address] documented as of this encounter Procedures Procedure [...] mCi documented in this encounter Care Teams Tube Building Machine Operator Relationship Specialty Start Date End Date Emelyn Easley MD [address] [place] [address] PCP - General Family Medicine 08/26/16 05/26/18 documented as of this encounter
--- OUTSIDE RECORDS SUMMARY | 2024-01-12 21:18 | XMS_ITS | Encounter Summary ---
Author Organization [facility] Address [facility] [place] [address] Care Team Providers Care Lime Mixer Tender Name Role Phone Naina Lindsey MD Primary Care Provider [phone] Reason for Referral * Consultation (Routine) - Closed Specialty Diagnoses / Procedures Referred By Contac t Referred To Contact Orthotics Diagnoses Traumatic brain injury, sequela Spasticity Scoliosis Mesha Cabral MD [facility] [address] Referral ID Status Reason Start Date Expiration Date V isits Requested Visits Authorized [id number] Closed Consult, Test & Treat 11/09/2014 05/08/2015 3 3 Reason for Visit * Reason Comments Follow-up [place] Encounter Details Date Type Department Care Team (Late st Contact Info) Description 11/09/2014 10:00 AM EDT Office [place] [address] Mesha Cabral MD [facility] [address] Acquired dysplasia of hip, unspecified laterality; Traumatic [...] when her orthopedic care was received at [facility], I do not have those notes [...] alignment where she had previously used a [place] type TLSO scoliosis brace, it does not [...] skin currently. Upper extremity exam reveals bilateral [id number] contractures of the shoulders, elbows, and wrists, [...] would have to be a referral to [facility] as I am no longer performing [...] EST Office Visit [place] [address] Hollie Ambriz MD [facility] [place] [address] Scheduled Referrals Name Type Priority Associated Diagnoses [...] limb documented in this encounter Care Teams Lime Mixer Tender Relationship Specialty Start Date End Date Naina Lindsey MD [address] [place] [address] PCP - General 03/19/10 08/25/16 documented as of this encounter
--- OUTSIDE RECORDS SUMMARY | 2024-01-12 21:18 | XMS_ITS | Encounter Summary ---
Author Organization [facility] Address [facility] [place] [address] Care Team Providers Care Used Car Lot Attendant Name Role Phone Naina Lindsey MD Primary Care Provider [phone] Encounter Details Date Type Department Care Team (Latest Contact Info) Description 07/31/2015 11:19 AM EDT - 07/31/2015 11:59 PM EDT Hospital Encounter XRay at [address] [place] [address] Mesha Cabral MD [facility] [place] [address] Neuromuscular scoliosis of lumbar region; Traumatic brain [...] PM EST Office Visit [place] [address] Hollie Ambriz MD [facility] [place] [address] documented as of this encounter Procedures Procedure [...] Progression of remodeling and sclerosis about the pala acetabulum and proximal right femoral fragment status [...] Progression of irregularity and remodeling about the pala acetabulum. The femur remains gracile in nature. [...] Progression of irregularity and remodeling about the pala acetabulum. The femurremains gracile in nature. Absent femoral head. IMPRESSION IMPRESSION: Progression of remodeling and sclerosis about the pala acetabulum andproximal right femoral fragment status post [...] encounter documented in this encounter Care Teams Used Car Lot Attendant Relationship Specialty Start Date End Date Naina Lindsey MD [address] [place] [address] PCP - General 03/19/10 08/25/16 documented as of this encounter
--- OUTSIDE RECORDS SUMMARY | 2024-01-12 21:18 | XMS_ITS | Encounter Summary ---
[place] [address] Care Team Providers Care Catering Coordinator Name Role Phone Emelyn Easley MD Primary Care Provider [phone] Reason for Referral * Diagnostic Test (Routine) - Closed Specialty Diagnoses / Procedures Referred By Contac t Referred To Contact Radiology Diagnoses Traumatic brain injury, without LOC, sequela Acquired dysplasia of hip, unspecified laterality Spasticity Neuromuscular scoliosis of lumbar region Procedures NM Whole Body Bone Scan Vanda Carter [place] [address] [place] [address] Referral ID Status Reason Start Date Expiration Date V isits Requested Visits Authorized [id number] Closed Specialty Service Requested 11/24/2016 11/24/2017 1 1 Reason for Visit * Diagnostic Test (Routine) - Closed Specialty Diagnoses / Procedures Referred By Contac t Referred To Contact Radiology Diagnoses Traumatic brain injury, without LOC, sequela Acquired dysplasia of hip, unspecified laterality Spasticity Neuromuscular scoliosis of lumbar region Procedures NM Whole Body Bone Scan Vanda Carter [place] [address] [facility] [place] [address] Referral ID Status Reason Start Date Expiration Date V isits Requested Visits Authorized [id number] Closed Specialty Service Requested 11/24/2016 11/24/2017 1 1 Encounter Details Date Type Department Care Team (Latest Contact Info) Description 12/10/2016 10:57 AM EDT - 12/10/2016 1:59 PM EDT Hospital Encounter [place] [address] Josse Mckee MD [facility] [place] [address] Traumatic brain injury, without LOC, [...] PM EST Office [place] [address] Hollie Ambriz MD [facility] [place] [address] documented as of this encounter Procedures Procedure [...] mCi documented in this encounter Care Teams Catering Coordinator Relationship Specialty Start Date End Date Emelyn Easley MD [address] [place] [address] PCP - General Family Medicine 08/26/16 05/26/18 documented as of this encounter
--- OUTSIDE RECORDS SUMMARY | 2024-01-12 21:18 | XMS_ITS | Encounter Summary ---
[place] [address] Care Team Providers Care Cisco Network Engineer Name Role Phone Emelyn Easley MD Primary Care Provider [phone] Reason for Visit * Auth/Cert Specialty Diagnoses / Procedures Referred By Karlo duarte Referred To Contact Diagnoses TBI, W/O LOC, SEQUEIA/ACQUIRED DYSPLASIA OF HIP Procedures PRO ANESTH, CAT/MRI SCAN, RADIATN THERAPY BONE SCAN Referral ID Status Reason Start Date Expiration Date Visits Re quested Visits Authorized [id number] 1 1 Encounter Details Date Type Department Care Team (Late st Contact Info) Description 12/30/2016 3:23 PM [place] [address] [facility] ANESTHESIOLOGY [place] [address] [facility] ANESTHESIOLOGY [place] [address] Anesthesia Record Procedure Summary Procedure Name Responsible [...] Lawson MD - 12/30/2016 4:27 PM EDT [facility] Department of Anesthesiology Post-procedure Note Patient: Tana Cavazos Procedure Summary Date Anesthesia Start Anesthesia Stop Room / Location 12/30/16 1523 1608 [facility] ADULT RADIOLOGY / [facility] Procedure Diagnosis Surgeon Responsible Provider BONE SCAN (N/A ) (TBI, W/O LOC, SEQUEIA/ACQUIRED DYSPLASIA OF HIP) RESOURCE, ANESTHESIA-Gaby Hallman MD All Anesthesia Providers: Anesthesiologist: Gaby Cantu MD Lot Attendant: Sidney Lawson MD Last (1hr) Vitals: BP (!) 80/50 (12/30/16 1608) Temp 36.2 ??C (97.2 ??F) (12/30/16 1608) Pulse 93 (12/30/16 1608) Resp 16 (12/30/16 1608) SpO2 97 % (12/30/16 1608) Patient Location: PACU/[facility] Level of Consciousness: Awake and Alert [...] BOTH LEGS performed by [facility] at [facility] OR ??? PRO OSTEOTOMY FEMUR SHAFT/SUPRACONDY 08/15/2010 ??OSTEOTOMY, FEMUR SHAFT OR SUPRACONDYLAR W/O FIXATION performed by BARRERA OLIVER at [facility] OR ??? PRO RECONSTRUC HIP SOCKET, RESEC FEM HEAD 08/15/2010 ??ACETABULOPLASTY (GIRDLESTONE), RESECTION FEMORAL HEAD, BILATERAL performed by BARRERA OLIVER [facility] OR ??? PRO REMOVAL DEEP IMPLANT 08/15/2010 REMOVAL IMPLANT, DEEP, BRUNO performed by BARRERA OLIVER at [facility] OR ??? PRO REMOVE INFUSN DEVICE/PUMP N/A 05/11/2014 REMOVAL OF SPINE INFUSION PUMP performed by Jamaal Samuel MD at [facility] OR ??? PRO REMOVE SPINAL CANAL CATHETER N/A 05/11/2014 REMOVAL OF INTRATHECAL OR EPIDURAL CATHETER performed by Jamaal Samuel MD at [facility] MAIN OR ??? PRO REPR, DURAL/CSF LEAK, NOT REQ LAMINECTOMY N/A 05/20/2014 @REPAIR DURAL\CSF LEAK,NOT REQUIRING LAMINECTOMY performed by Freddy Isbell MD at [facility] MAIN OR Social History Substance Use Topics ??? Smoking status: Never Smoker ??? Smokeless tobacco: Never Used Comment: NO SMOKERS IN THE HOME ??? Alcohol use No History Drug Use No Allergies Allergen Reactions ??? Fluoxetine Other (See Comments) HIVES, HEART RACES ??? Tegaderm [Transparent Dressings] Itching and Dermatitis Please use [id number] Medications: MAR and/or home medications have been [...] Office [place] [address] Hollie Ambriz MD [facility] INFECTIOUS [place] [address] documented as of this encounter Visit Diagnoses [...] mL/hr documented in this encounter Care Teams Cisco Network Engineer Relationship Specialty Start Date End Date Emelyn Easley MD [address] [place] [address] PCP - General Family Medicine 08/26/16 05/26/18 documented as of this encounter
--- OUTSIDE RECORDS SUMMARY | 2024-01-12 21:18 | XMS_ITS | Encounter Summary ---
Author Organization [facility] Address [facility] [place] [address] Care Team Providers Care Metal Bonding Worker Name Role Phone Emelyn Easley MD Primary Care Provider [phone] Reason for Visit * Reason Comments Rash * Consultation (Routine) - Closed Specialty Diagnoses / Procedures Referred By Karlo duarte Referred To Contact Dermatology Diagnoses RASH TO UPPER EXTREMITIES EXTENDS TO RIGHT SIDE. Lorna Bal APRN [address] [place] [address] [facility] Dermatology [address] [place] [address] Referral ID Status Reason Start Date Expiration Date V isits Requested Visits Authorized [id number] Closed Consult, Test & Treat [facility] 09/15/2017 09/15/2018 1 1 Encounter Details Date Type Department Care Team (Late st Contact Info) Description 11/16/2017 9:00 AM EDT Office Visit Dermatology at [facility] [address] [place] [address] Emili Mcdonald MD [facility] [address] [place] [address] Keratosis pilaris (Primary Dx); Multiple [...] [Transparent Dressings] Itching and Dermatitis Please use [id number] Review of Systems: - General: Feels well. [...] by Emili Mcdonald MD Resident in Dermatology [facility] Patient seen in conjunction with staff forestry workers: Wally Araya MD Section of Dermatology [facility] Level of Resident Supervision: Direct Supervision [...] PM EST Office [place] [address] Hollie Ambriz MD [facility] [place] [address] documented as of this encounter Visit Diagnoses Diagnosis Keratosis pilaris- Primary Other specified congenital anomaly of skin Multiple benign nevi Benign neoplasm of skin, site unspecified documented in this encounter Care Teams Metal Bonding Worker Relationship Specialty Start Date End Date Emelyn Easley MD [address] [place] [address] PCP - General Family Medicine 08/26/16 05/26/18 documented as of this encounter
--- OUTSIDE RECORDS SUMMARY | 2024-01-12 21:18 | XMS_ITS | Encounter Summary ---
[place] [address] Care Team Providers Care Weather Forcaster Name Role Phone Naina Lindsey MD Primary Care Provider [phone] Encounter Details Date Type Department Care Team (Late st Contact Info) Description 01/04/2015 Telephone [place] [address] Camille Griffin RN Social History Tobacco Use [...] equipment services. They do not have a [place] provider licence so they will not be able to help with the wheelchair. Spoke with mom and she does not want to go through [employer] again. Will discuss with the team to see if there are other options in [place] for the wheelchair. documented in this encounter Plan of Treatment Upcoming Encounters Date Type Department Care Team (Late st Contact Info) Description 06/02/2024 12:30 PM EST Office [place] [address] Hollie Ambriz MD [facility] [place] [address] documented as of this encounter Visit Diagnoses Not on filedocumented in this encounter Care Teams Weather Forcaster Relationship Specialty Start Date End Date Naina Lindsey MD [address] [place] [address] PCP - General 03/19/10 08/25/16 documented as of this encounter
--- OUTSIDE RECORDS SUMMARY | 2024-01-12 21:18 | XMS_ITS | Encounter Summary ---
Author Organization [facility] [place] [address] Care Team Providers Care Water/Wastewater Engineer Name Role Phone Emelyn Easley MD Primary Care Provider [phone] Encounter Details Date Type Department Care Team (Late st Contact Info) Description 11/17/2016 Orders [place] [address] Josse Mckee MD [facility] [place] [address] Neuromuscular scoliosis of lumbar region; Acquired dysplasia [...] PM EST Office [place] [address] Hollie Ambriz MD [facility] [place] [address] documented as of this encounter Results * [...] laterality documented in this encounter Care Teams Water/Wastewater Engineer Relationship Specialty Start Date End Date Emelyn Easley MD [address] [place] [address] PCP - General Family Medicine 08/26/16 05/26/18 documented as of this encounter
--- OUTSIDE RECORDS SUMMARY | 2024-01-12 21:18 | XMS_ITS | Encounter Summary ---
Author Organization [facility] Address [facility] [address] Care Team Providers Care Captain Fishing Vessel Name Role Phone Emelyn Easley MD Primary Care Provider [phone] Reason for Referral * Physical Therapy (Routine) - Closed Specialty Diagnoses / Procedures Referred By Contac t Referred To Contact Diagnoses Traumatic brain injury, without LOC, sequela Acquired dysplasia of hip, unspecified laterality Spasticity Neuromuscular scoliosis of lumbar region Vanda Carter PA [facility] [place] [address] Unknown None Referral ID Status Reason Start Date Expiration Date V isits Requested Visits Authorized [id number] Closed Evaluate and Treat 11/24/2016 05/23/2017 12 12 * Diagnostic Test (Routine) - Closed Specialty Diagnoses / Procedures Referred By Contac t Referred To Contact Radiology Diagnoses Traumatic brain injury, without LOC, sequela Acquired dysplasia of hip, unspecified laterality Spasticity Neuromuscular scoliosis of lumbar region Procedures NM Whole Body Bone Scan Vanda Carter PA [facility] [place] [address] [place] [address] Referral ID Status Reason Start Date Expiration Date V isits Requested Visits Authorized [id number] Closed Specialty Service Requested 11/24/2016 11/24/2017 1 1 Reason for Visit * Consultation (Routine) - Closed Specialty Diagnoses / Procedures Referred By Contac t Referred To Contact Orthopaedics Diagnoses leg pain,chronic, right Emelyn Easley MD [address] [place] [address] [facility] [address] [place] [address] Referral ID Status Reason Start Date Expiration Date V isits Requested Visits Authorized [id number] Closed Consult, Test & Treat Connection [facility] 08/26/2016 08/26/2017 1 1 Encounter Details Date Type Department Care Team (Late st Contact Info) Description 11/24/2016 1:00 PM EDT Office [place] [address] Josse Mckee MD [facility] [place] [address] Traumatic brain injury, without LOC, sequela; Acquired [...] NAME: Tana Cavazos AGE: 21 y.o.. MR#: [id number] ? DATE OF VISIT: 11/24/2016 ? STAFF: [...] [place] [address] Hollie Ambriz MD [facility] [place] [address] Scheduled Referrals Name Type Priority Associated Diagnoses [...] pelvis cannot be evaluated. Josse Mckee MD [facility] [place] ORDERABLES documented in this encounter Visit [...] scoliosis documented in this encounter Care Teams Captain Fishing Vessel Relationship Specialty Start Date End Date Emelyn Easley MD [address] [place] [address] PCP - General Family Medicine 08/26/16 05/26/18 documented as of this encounter
--- OUTSIDE RECORDS SUMMARY | 2024-01-12 21:18 | XMS_ITS | Encounter Summary ---
Author Organization [facility] Address [facility] [place] [address] Care Team Providers Care Contact Acid Plant Operator Helper Name Role Phone Emelyn Easley MD Primary Care Provider [phone] Encounter Details Date Type Department Care Team (Latest Contact Info) Description 11/24/2016 12:04 PM EDT - 11/24/2016 11:59 PM EDT Hospital Encounter XRay at [address] [place] [address] Josse Mckee MD [facility] ORTHOPAEDIC [place] [address] Acquired dysplasia of hip, unspecified laterality Discharge [...] PM EST Office Visit [place] [address] Hollie Ambriz MD [facility] DR INFECTIOUS [place] [address] documented as of this encounter Procedures Procedure [...] laterality documented in this encounter Care Teams Contact Acid Plant Operator Helper Relationship Specialty Start Date End Date Emleyn Easley MD [address] [place] [address] PCP - General Family Medicine 08/26/16 05/26/18 documented as of this encounter
--- OUTSIDE RECORDS SUMMARY | 2024-01-12 21:18 | XMS_ITS | Encounter Summary ---
[place] [address] Care Team Providers Care Customer Account Executive Name Role Phone Emelyn Easley MD Primary Care Provider [phone] Reason for Visit * Auth/Cert Specialty Diagnoses / Procedures Referred By Contac t Referred To Contact Diagnoses TBI, W/O LOC, SEQUEIA/ACQUIRED DYSPLASIA OF HIP Procedures PRO ANESTH, CAT/MRI SCAN, RADIATN THERAPY BONE SCAN Referral ID Status Reason Start Date Expiration Date Visits Re quested Visits Authorized [id number] 1 1 Encounter Details Date Type Department Care Team (Late st Contact Info) Description 12/30/2016 3:00 PM EDT - 12/30/2016 4:28 [place] [address] RESOURCE, ANESTHESIA-KRISTIN None BONE SCAN Social History [...] 11:40; without success they called for another barrel liner. I paged at 12:17; person answering says [...] PM EST Office Visit [place] [address] Hollie Ambriz MD [facility] [place] [address] documented as of this encounter Procedures Procedure Name Priority Date/Time Associated Diagnosis Comments BONE SCAN 12/30/2016 11:00 PM EDT TBI, W/O LOC, SEQUEIA/ACQUIRED DYSPLASIA OF HIP documented in this encounter Visit Diagnoses Not on filedocumented in this encounter Care Teams Customer Account Executive Relationship Specialty Start Date End Date Emelyn Easley MD [address] [place] [address] PCP - General Family Medicine 08/26/16 05/26/18 documented as of this encounter
--- OUTSIDE RECORDS SUMMARY | 2024-01-12 21:18 | XMS_ITS | Encounter Summary ---
Author Organization [facility] Address [facility] [place] [address] Care Team Providers Care Orthotic Finish Grinding Technician Name Role Phone Naina Lindsey MD Primary Care Provider [phone] Reason for Visit * Reason Comments Scoliosis Encounter Details Date Type Department Care Team (Late st Contact Info) Description 12/29/2014 9:00 AM EDT Office [place] [address] Ty Vogel MD [facility] [place] [address] Scoliosis Discharge Disposition: Home Social History Tobacco [...] past history with care received both at [facility] and in [place]. PAST MEDICAL HISTORY: For full history, please [...] PM EST Office [place] [address] Hollie Ambriz MD [facility] [place] [address] documented as of this encounter Visit Diagnoses Diagnosis Scoliosis Scoliosis (and kyphoscoliosis), idiopathic documented in this encounter Care Teams Orthotic Finish Grinding Technician Relationship Specialty Start Date End Date Naina Lindsey MD [address] [place] [address] [place] [address] PCP - General 03/19/10 08/25/16 documented as of this encounter
--- OUTSIDE RECORDS SUMMARY | 2024-01-12 21:18 | XMS_ITS | Encounter Summary ---
Author Organization [facility] [place] [address] Care Team Providers Care Packing Tractor Machine Operator Name Role Phone Eemlyn Easley MD Primary Care Provider [phone] Reason for Referral * Diagnostic Test (Routine) - Closed Specialty Diagnoses / Procedures Referred By Contac t Referred To Contact Radiology Diagnoses Traumatic brain injury, without LOC, sequela Acquired dysplasia of hip, unspecified laterality Procedures NM Whole Body Bone Scan Vanda Carter PA [facility] [place] [address] [place] [address] Referral ID Status Reason Start Date Expiration Date V isits Requested Visits Authorized [id number] Closed Specialty Service Requested 12/16/2016 12/16/2017 2 2 Encounter Details Date Type Department Care Team (Late st Contact Info) Description 12/16/2016 Orders [place] [address] Vanda Carter PA [facility] [place] [address] Traumatic brain injury, without LOC, sequela; Acquired [...] PM EST Office [place] [address] Hollie Ambriz MD [facility] [place] [address] documented as of this encounter Results * [...] at 12/30/2016 5:18 PM Josse Mckee MD [facility] [place] documented in this encounter Visit Diagnoses Diagnosis Traumatic brain injury, without LOC, sequela Acquired dysplasia of hip, unspecified laterality Traumatic brain injury, without LOC, sequela Acquired dysplasia of hip, unspecified laterality documented in this encounter Care Teams Packing Tractor Machine Operator Relationship Specialty Start Date End Date Emelyn Easley MD [address] [place] [address] PCP - General Family Medicine 08/26/16 05/26/18 documented as of this encounter
--- OUTSIDE RECORDS SUMMARY | 2024-01-12 21:18 | XMS_ITS | Encounter Summary ---
[place] [address] Care Team Providers Care Wire Turning Machine Operator Name Role Phone Emelyn Easley MD Primary Care Provider [phone] Reason for Visit * Reason Onset Date Comments Other 12/19/2016 Encounter Details Date Type Department Care Team (Late st Contact Info) Description 12/19/2016 Telephone [place] [address] Josse Mckee MD [facility] [address] [place] [address] Other Social History Tobacco Use Types Packs/Day [...] PM EST Office Visit [place] [address] Hollie Ambriz MD [facility] [address] [place] [address] documented as of this encounter Visit Diagnoses Not on filedocumented in this encounter Care Teams Wire Turning Machine Operator Relationship Specialty Start Date End Date Emelyn Easley MD [address] [place] [address] PCP - General Family Medicine 08/26/16 05/26/18 documented as of this encounter
--- OUTSIDE RECORDS SUMMARY | 2024-01-12 21:18 | XMS_ITS | Encounter Summary ---
Author Organization [facility] [place] [address] Care Team Providers Care Staff Design Engineer Name Role Phone Emelyn Easley MD Primary Care Provider [phone] Reason for Visit * Auth/Cert Specialty Diagnoses / Procedures Referred By Contac t Referred To Contact Diagnoses TBI, W/O LOC, SEQUEIA/ACQUIRED DYSPLASIA OF HIP Procedures PRO ANESTH, CAT/MRI SCAN, RADIATN THERAPY BONE SCAN Referral ID Status Reason Start Date Expiration Date Visits Re quested Visits Authorized [id number] 1 1 Encounter Details Date Type Department Care Team (Latest Contact Info) Description 12/30/2016 2:57 PM EDT - 12/30/2016 11:59 PM EDT Hospital Encounter [place] [address] Josse Mckee MD [facility] [place] [address] Discharge Disposition: Home Social History Tobacco Use [...] PM EST Office [place] [address] Hollie Ambriz MD [facility] [place] [address] documented as of this encounter Procedures Procedure [...] on filedocumented in this encounter Care Teams Staff Design Engineer Relationship Specialty Start Date End Date Emelyn Easley MD [address] [place] [address] PCP - General Family Medicine 08/26/16 05/26/18 documented as of this encounter
--- OUTSIDE RECORDS SUMMARY | 2024-01-12 21:18 | XMS_ITS | Encounter Summary ---
Author Organization [facility] Address [facility] [place] [address] Care Team Providers Care Case Hardener Name Role Phone Emelyn Easley MD Primary Care Provider [phone] Reason for Visit * Reason Comments Follow Up Surgery Bilateral Girdle sto ne procedure Encounter Details Date Type Department Care Team (Late st Contact Info) Description 03/06/2017 11:40 AM EST Office [place] [address] Josse Mckee MD [facility] [place] [address] Acquired dysplasia of hip, unspecified laterality; Traumatic [...] NAME: Tana Cavazos AGE: 21 y.o.. MR#: [id number] ? DATE OF VISIT: 03/06/2017 ? STAFF: [...] at that time, done with physiatry at [facility]. Dr. Mckee gave them his card today and they will call if they would like to schedule these injections. Otherwise, they can follow up in 1 year with X-rays of the hips and spine. documented in this encounter Plan of Treatment Upcoming Encounters Date Type Department Care Team (Late st Contact Info) Description 06/02/2024 12:30 PM EST Office [place] [address] Hollie Ambriz MD [facility] [place] [address] documented as of this encounter Visit Diagnoses Diagnosis Acquired dysplasia of hip, unspecified laterality Traumatic brain injury, without loss of consciousness, sequela documented in this encounter Care Teams Case Hardener Relationship Specialty Start Date End Date Emelyn Easley MD [address] [place] [address] PCP - General Family Medicine 08/26/16 05/26/18 documented as of this encounter
--- OUTSIDE RECORDS SUMMARY | 2024-01-12 21:18 | XMS_ITS | Encounter Summary ---
Author Organization [facility] Address [facility] [place] [address] Care Team Providers Care Pop Singer Name Role Phone Naina Lindsey MD Primary Care Provider [phone] Reason for Referral * Consultation (Routine) - Specialty Diagnoses / Procedures Referred By Contmonica duarte Referred To Contact Orthotics Diagnoses Neuromuscular scoliosis of lumbar region Joe Porter MD [facility] [place] [address] Referral ID Status Reason Start Date Expiration Date V isits Requested Visits Authorized [id number] Consult, Test & Treat 06/19/2016 12/16/2016 1 1 Encounter Details Date Type Department Care Team (Late st Contact Info) Description 06/19/2016 Orders [place] [address] Joe Porter MD Neuromuscular scoliosis of lumbar [...] Rx for soft TLSO brace faxed to [facility] in [facility]. documented in this encounter Plan of Treatment Upcoming Encounters Date Type Department Care Team (Late st Contact Info) Description 06/02/2024 12:30 PM EST Office [place] [address] Hollie Ambriz MD [facility] [place] [address] Scheduled Referrals Name Type Priority Associated Diagnoses Orde r Schedule Referral to Othotist Outpatient Referral Routine Neuromuscular scoliosis of lumbar region Ordered: 06/19/2016 documented as of this encounter Visit Diagnoses Diagnosis Neuromuscular scoliosis of lumbar region Other kyphoscoliosis and scoliosis documented in this encounter Care Teams Pop Singer Relationship Specialty Start Date End Date Naina Lindsey MD [address] [place] [address] PCP - General 03/19/10 08/25/16 documented as of this encounter
--- OUTSIDE RECORDS SUMMARY | 2024-01-12 21:18 | XMS_ITS | Encounter Summary ---
Author Organization [facility] [place] [address] Care Team Providers Care Operations And Maintenance Manager Name Role Phone Naina Lindsey MD Primary Care Provider [phone] Encounter Details Date Type Department Care Team (Late st Contact Info) Description 12/29/2014 Orders [place] [address] Mesha Cabral MD [facility] [place] [address] Acquired dysplasia of hip, unspecified laterality; Presence [...] PM EST Office [place] [address] Hollie Ambriz MD [facility] [place] [address] documented as of this encounter Visit Diagnoses Diagnosis Acquired dysplasia of hip, unspecified laterality Presence of intrathecal baclofen pump Scoliosis Scoliosis (and kyphoscoliosis), idiopathic Spasticity Abnormal involuntary movements Traumatic brain injury, sequela documented in this encounter Care Teams Operations And Maintenance Manager Relationship Specialty Start Date End Date Naina Lindsey MD [address] [place] [address] [place] [address] PCP - General 03/19/10 08/25/16 documented as of this encounter
--- OUTSIDE RECORDS SUMMARY | 2024-01-12 21:18 | XMS_ITS | Encounter Summary ---
Author Organization [facility] Address [facility] [place] [address] Care Team Providers Care Shipping Specialist Name Role Phone Lorna Bal APRN Primary Care Provider [phone] Reason for Visit * Auth/Cert Specialty Diagnoses [...] Expiration Date Visits Re quested Visits Authorized [id number] 1 1 Encounter Details Date Type Department Care Team (Late st Contact Info) Description 06/14/2018 9:45 AM EST - 06/14/2018 11:30 AM EST Surgery [place] [address] Keith Cotton MD [facility] [place] [address] SURGICAL EXTRACTIONS, REMOVAL OF IMPACTED TOOTH, COMPLETELY [...] closest emergency room or call the hospital precision thread grinder operator at [phone] and ask for physician summons server covering for your physician. Questions or problems after 5pm or on a weekend: Call the [facility] precision thread grinder operator at and ask for the physician summons server covering for your doctor. * Patient Instructions* [...] may be helpful. Most swelling will occur [id number] hours following the procedure. Mouth Rinse: Vigorous [...] can be reached during office hours at [phone]. If you have questions atnight or on weekends, Dr. Cotton can be reached at [phone]. documented in this encounter Medications at Time [...] instructions given to Care givers & mother. aTna tolerated Ibuprofen and Ice pop. documented in [...] OLIVER at [facility] MAIN OR ? ? PRO I&D, POST SPINE, LUMB/SACR/LUMBOSAC N/A 05/20/2014 @I & D, OPEN, DEEP ABSCESS, LUMBAR, SACRAL, LUMBOSACRAL performed by Freddy Isbell MD at [facility] MAIN OR ? ? PRO I&D, POST SPINE, LUMB/SACR/LUMBOSAC N/A 05/26/2014 @I & D, OPEN, DEEP ABSCESS, LUMBAR, SACRAL, LUMBOSACRAL performed by Freddy Isbell MD at [facility] MAIN OR ??? PRO OSTEOTOMY FEMUR SHAFT/SUPRACONDY 08/15/2010 ??OSTEOTOMY, FEMUR SHAFT OR SUPRACONDYLAR W/O FIXATION performed by BARRERA OLIVER at [facility] OR ??? PRO RECONSTRUC HIP SOCKET, RESEC FEM HEAD 08/15/2010 ??ACETABULOPLASTY (GIRDLESTONE), RESECTION FEMORAL HEAD, BILATERAL performed by BARRERA OLIVER [facility] OR ??? PRO REMOVAL DEEP IMPLANT 08/15/2010 REMOVAL IMPLANT, DEEP, BRUNO performed by BARRERA OLIVER at [facility] OR ??? PRO REMOVE INFUSN DEVICE/PUMP N/A 05/11/2014 REMOVAL OF SPINE INFUSION PUMP performed by Jamaal Samuel MD at [facility] MAIN OR ??? PRO REMOVE SPINAL CANAL CATHETER N/A 05/11/2014 REMOVAL OF INTRATHECAL OR EPIDURAL CATHETER performed by Jamaal Samuel MD at [facility] OR ??? PRO REPR, DURAL/CSF LEAK, NOT REQ LAMINECTOMY N/A 05/20/2014 @REPAIR DURAL\CSF LEAK,NOT REQUIRING LAMINECTOMY performed by Freddy Isbell MD at [facility] OR Allergies Allergen Reactions ??? Fluoxetine Other (See Comments) HIVES, HEART RACES ??? Tegaderm [Transparent Dressings] Itching and Dermatitis Please use [id number] No current facility-administered medications on file prior [...] TOOTH (WRVU 1.09) No flowsheet data found. [place] PDMP QUERY DATE: 06/14/18 Risk Assessment Category: [...] No future appointments. Keith Cotton DMD, MD skidder documented in this encounter Miscellaneous Notes * Op Note - Keith Cotton MD - 06/14/2018 11:06 AM EST [facility] Operative Note Patient Name: Tana Cavazos : [id number] MR#: [id number] Case Date: 06/14/2018 Surgeon: Surgeon(s) and Role: [...] draped in the standard fashion for senior ios software engineer. The oral cavity was suctioned and an [...] tooth #32. Mucoperiosteum was reflected laterally andthe [employer]ep[employer] drill was used to remove bone overlying [...] PM EST Office Visit Infectious Disease at [facility] [place] [address] Hollie Ambriz MD [facility] [place] [address] documented as of this encounter Procedures Procedure [...] Date Lorna Bal APRN [address] [place] [address] PCP - General Family Medicine 05/27/18 documented as of this encounter
--- OUTSIDE RECORDS SUMMARY | 2024-01-12 21:19 | XMS_ITS | Encounter Summary ---
Author Organization [facility] Address [facility] [place] [address] Care Team Providers Care Diabetes Education Coordinator Name Role Phone Naina Lindsey MD Primary Care Provider [phone] Reason for Visit * Reason Comments Post-op Problem Encounter Details Date Type Department Care Team (Latest Contact Info) Description 05/20/2014 8:13 PM EST - 06/02/2014 4:25 PM [facility] Hospital Encounter [place] [address] Belkis Louie MD [facility] [place] [address] Freddy Burciaga MD [facility] DR NEUROS[place] [address] Jamaal Samuel MD [facility] DR PEDIATRIC [place] [address] Febrile illness, acute Discharge Disposition: Home with [...] Routine, Hospital Performed Vendor / contact information: [facility] Patient location post discharge: home Service requested: IV abx Start date: 05/26/2014 Responsible MD post discharge contact info: PCP Luis (Edit) Referral to Home Health - at DISCHARGE Routine, Clinic Performed Agency name and contact information: [place] Patient location post discharge: home What services are requested: Registered Nurse, Home Health Aide, Physical Therapy, Occupational Therapy Start date: 05/26/2014 Responsible MD post discharge contact info: PCP PATIENT'S LOCATION: Tana Hayes Dirk [address] [place] [phone] (home) In discussion with the attending physician, it is certified that this patient is under their care and that they, or a Nurse Practitioner,Clinical Nurse specialist or Physician Travel Services Professional who is working directly with them, had [...] Continue with therapies OT: Continue with therapies DIPLOMA PHARMACY TECHNICIAN: Continue support HOME HEALTH CARE AGENCY: [facility]. PHONE: [phone] FAX: [phone] Start of care: 05/26/14 Please note that any additional orders needs or changes will need to be obtained from this patient's PCP: MD Coby [address] / [place] [address] All A agencies which cover the area of patient's residence have been reviewed, either verbally or in writing, and patient/family have chosen the home health care agency noted Emergency contact: After hours and weekends, call the [facility] test engine operator at and ask them to page the neurosurgery resident loss prevention specialist. documented in this encounter Medications at [...] given to the patient or sales representative wire rope. 6) If VNA was ordered, I faxed [...] 0.9% 50 mL Mini-Bag Plus 2 g RtxxxwfipjcQ0W ??? baclofen 10 mg Oral Nightly ??? [...] elevated HR this am S: Kenneth Valiente. [facility], [id number] singing ABCs and counting along with stretches [...] pt to d/chome with support and continued PT/OT/LIVE IN HOUSEKEEPER NANNY/VNA services. Staff communication/Mobility Recommendations: Pt. Would benefit [...] timed interventions: 30 minutes for TherEx-F Pager: [phone] Mary Joe OT Occupational Therapy Rehabilitation Department * Isra Perez RN - 06/01/2014 2:43 PM EST Patient Name: Tana Shelton Patient Age: 18 y.o. Birthdate: 1995 Admit date: 05/20/2014 Attending Physician: Jamaal Samuel MD OFFICE OF CARE MANAGEMENT Farhana Perez RN Pager: [phone] CLINICAL TRAVEL NURSE PROGRESS NOTE e-DH reviewed. Report received from DEMI Sanchez. Patient continues to require acute inpatient care for the treatment of infection. Patient remains on triple abx while awaiting final cultures. [facility] and [place] [facility] have been referred to for discharge. Met with patient's mother at bedside. Mom had multiple questions the other day regarding equipment for home. Mattress for hospital bed was ordered and delivered to home from [facility]. Tomasa Sling was ordered and is to be delivered by [facility] when it ships to [facility] warehouse. TLSO brace to be fitted by [place]. Mom also inquired about a new motorized wheelchair. Called [facility] in [place] to see if patient would qualify, left message with Oliver- the wildlife rehabilitator for [facility]. Patient will need a [...] 0.9% 50 mL Mini-Bag Plus 2 g AplbutdvphkA3H ??? baclofen 10 mg Oral Nightly ??? [...] has recovered and I can review the [facility] records and films * Natividad Esqueda, [...] family in a single story home in [place], [place]. Pt's mother reports that there is no stair requirement, and that she has all necessary equipment. Stairs: 0 without a rail to enter Baseline Mobility: Completely dependent for all care, home nursing VNA services 3x/week, school-based PT/OT/LIVE IN HOUSEKEEPER NANNY, pt due to receive a communication device [...] than in previous treatment session, counting withthis brief writer during stretching Objective: Patient seen for [...] internal rotators, adductors ?? Pt helped this brief writer with opposite UE when performing stretching [...] session, playing with toys, playfully tricking this brief writer when counting during passive stretching, and [...] exercise Natividad Esqueda PT, DPT 05/31/2014 Pager: [phone] Physical Therapy Inpatient Rehabilitation Department * Nathalie Wleler RN - 05/30/2014 6:39 PM EST I [...] OF CARE MANAGEMENT Farhana Perez RN Pager: [phone] CLINICAL TRAVEL NURSE PROGRESS NOTE e-DH reviewed. Report received from DEMI Sanchez. Patient continues to require acute inpatient care for the treatment of infection. Patient is on triple abx. Patient needs a new mattress for her hospital bed at home. Patient's mother would like order placed with [employer]. Order pended and booking sent via Measy Plan: CRC will continue to follow for [...] pt to d/chome with support and continued PT/OT/LIVE IN HOUSEKEEPER NANNY/VNA services. Staff communication/Mobility Recommendations: Pt. Would benefit [...] timed interventions: 45 minutes for TherEx Pager: [phone] Mary Joe OT Occupational Therapy Rehabilitation Department [...] 0.9% 50 mL Mini-Bag Plus 2 g SxoqafqroyqW6Q ??? baclofen 10 mg Oral Nightly ??? [...] OF CARE MANAGEMENT Farhana Perez RN Pager: [phone] CLINICAL TRAVEL NURSE PROGRESS NOTE e-DH reviewed. Report received from [...] as pt becomes available. Please contact this brief writer with any further questions or concerns. Thank you. Pager: [phone] Mary Joe, OTR/L Occupational Therapy Inpatient Rehabilitation [...] family in a single story home in [place], [place]. Pt's mother reports that there is no stair requirement, and that she has all necessary equipment. Stairs: 0 without a rail to enter Baseline Mobility: Completely dependent for all care, home nursing VNA services 3x/week, school-based PT/OT/LIVE IN HOUSEKEEPER NANNY, pt due to receive a communication device [...] pt very smiley today, counting with this brief writer during stretching, showing off her favorite [...] exercise Natividad Esqueda, PT, DPT 05/29/2014 Pager: [phone] Physical Therapy Inpatient Rehabilitation Department * Wai [...] not hesitate to page us on pager [phone] with further questions or concerns. Patient discussed [...] 0.9% 50 mL Mini-Bag Plus 2 g CfluymxiolwN6Y ??? baclofen 10 mg Oral Nightly ??? [...] 0.9% 50 mL Mini-Bag Plus 2 g EujeuhpaqwcA1G ??? baclofen 10 mg Oral Nightly ??? [...] CRC received call from EUNICE Hair, from [place], [place] or Asking for status as they will follow her after discharge for IV antibiotic treatment. She will need an OPAT order faxed to above agency when she is ready for discharge as well as administration teaching for home. When ready for discharge, [facility] PHONE: [phone] FAX: [phone] will also need to be updated. Referral had been made by previous CRC. Covering pager #[phone] for pager #[phone]. * Darius Maguire T - 05/27/2014 8:23 [...] 0.9% 50 mL Mini-Bag Plus 2 g TlauxcaoytaI9C ??? baclofen 10 mg Oral Nightly ??? [...] Dressing clean and dry Wound without fluctuance [address] Assessment/Plan:: 18 y.o. female s/p removal [...] family in a single story home in [place], [place]. Pt's mother reports that there is no stair requirement, and that she has all necessary equipment. Stairs: 0 without a rail to enter Baseline Mobility: Completely dependent for all care, home nursing VNA services 3x/week, school-based PT/OT/LIVE IN HOUSEKEEPER NANNY, pt due to receive a communication device [...] Natividad J Cavagnaro, PT, DPT 05/26/2014 Pager: [phone] Physical Therapy Inpatient Rehabilitation Department * Freddy Burciaga MD - 05/26/2014 6:27 AM EST Neurosurgery - Inpatient Progress Note ID: Tana Shelton, 18 y.o. female s/p removal of retained hardware, washout of infection 05/20 POD 6 Interval Hx: -ALEKSANDRA -Neurologically stable Objective: Medications: Scheduled Meds: ??? cefTAZidime (FORTAZ) 2g vial attach to sodium chloride 0.9% 50 mL Mini-Bag Plus 2 g XnyqysdvwaqH0B ??? baclofen 10 mg Oral Nightly ??? [...] (05/26) or when appropriate. Please page this brief writer if you have any questions, thank you. Natividad Esqueda PT Pager #[phone] Physical Therapy Inpatient Rehabilitation * Mary Joe, [...] pt to d/chome with support and continued PT/OT/LIVE IN HOUSEKEEPER NANNY/VNA services. Spoke to CRC this am about [...] timed interventions: 27 minutes for TherEx Pager: [phone] Mary Joe OT Occupational Therapy Rehabilitation Department [...] 0.9% 50 mL Mini-Bag Plus 2 g DdwoynrtdabK8B ??? baclofen 10 mg Oral Nightly ??? [...] of Care Management Farhana Perez RN Pager: [phone] Clinical Ceramics Engineer Home IV Antibiotic Therapy Referral Note. Report received from NeuroSurgery Team that patient will require continued home IV antibiotic therapy after discharge from the hospital. Met with patient/family to discuss vendor and visiting nurse choices for home IV antibiotic therapy. Reviewed Home Infusion Vendors and Home Health Agencies that serve patient???s address and accept patient???s insurance. Home Health Agency: Patient requested referral to [facility]. PHONE: [phone] FAX: [phone]. Referrals sent via edischarge. Home Infusion Vendor: Patient requested referral to [place], [place] Tel: or Fax: . Referrals sent [...] 0.9% 50 mL Mini-Bag Plus 2 g EgtzsvdwimgT4L ??? baclofen 10 mg Oral Nightly ??? [...] 0.9% 50 mL Mini-Bag Plus 2 g LhjdoqdpmeoM3O ??? baclofen 10 mg Oral Nightly ??? [...] PM EST Office of Care Management Clinical Ceramics Engineer Patient Name: Tana Shelton : 1995, 18 [...] /PRESCRIPTION COVERAGE: [place] [facility] CURRENT HOME/COMMUNITY SERVICES/EQUIPMENT: DME: [place] [facility] bed, wheelchair, tomasa lift, shower chair. Home Health Agency: [facility] PRIMARY CARE PHYSICIAN: NAINA LINDSEY MD [phone] POTENTIAL DISCHARGE NEEDS: Resume vna visits. Mother stated that she has [place] [facility]na - RN and Aide currently. Waiting to confirm this and pt needs. Might need home IV antibx. TRANSPORTATION @ D/C: family PLAN: CRC will continue to monitor progress, follow for continuity of care and assist with discharge planning while hospitalized Lesly Jesus RN Office of Care Management Clinical Ceramics Engineer Covering for Farhana Chris [phone] Pager [phone] * Yandy Dasilva, PharmD - 05/22/2014 9:46 AM EST Clinical Pharmacist Note-Vanc Tana Barlowrd [id number] 1995 Tana Barlowrd is a 18 y.o. [...] have. Alternately, during off-hours you may call [phone] to contact a pharmacist. Yandy Dasilva, PHARMD Pager [phone] * Ferddy Burciaga MD - 05/22/2014 6:59 AM EST [...] Clinically does not seem to be of FACILITIES MAINTENANCE SUPERVISOR origin. Continue triple antibiotics. ID consult. Cultures [...] given to [facility]. Transferred to [place] [address] with transport services, RN + family members. Please call Anurag ICU-RN at [phone] with regards to any questions post transfer. [...] mcL Appearance UA Hazy (*) Clear Spec [place] UA 1.026 1.002 - 1.030 Color UA [...] SHELTON Ordered By: CELSONIKITETO Freddy DAILEY MR#: [id number] LOC: OR /Sex: 1995 (18 years), Female PROCEDURE: Tissue Culture SOURCE: Back COLLECTED: 05/20/2014 20:20 FREE TEXT SOURCE: Lumbar Wound Culture STARTED: 05/20/2014 22:13 STAINS / PREPARATIONS Gram Stain Report Verified:05/20/2014 22:28 Few White Blood Cells seen No microorganisms seen. TISSUE CULTURE Result Value Ref Range Tissue Culture Value: Patient Name: TANA SHELTON Ordered By: Freddy BUCRIAGA MR#: [id number] LOC: OR /Sex: 1995 (18 years), Female [...] II initiated 0040: Report given to Jenn FISH FILLETER info reviewed/questions answered, pt ready for transfer [...] to the planned procedure. Hand Hygiene: The cupola operator did perform hand hygiene prior to line insertion. Catheter type: PICC Lot number: [id number] Procedure Technique: Skin was prepped with chlorhexidine. [...] warm and was flushed. They called the loss prevention specialist neurosurgeon, who advised that they come [...] stepfather Tobacco exposure:No Day care/year in school: [employer] Physical Exam: Vitals: Patient Vitals for the [...] mcL Appearance UA Hazy (*) Clear Spec [place] UA 1.026 1.002 - 1.030 Color UA [...] (reviewed by me): Assessment and Plan: Tana Sheltno is a 18 y.o. female presenting with [...] 05/21/14 0127 Lilli Esquivel MD Resident 05/21/14 2192 Associated attestation - Belkis Louie MD - [...] baclofen pump in 2007 at the [facility]. Mother feels that the pump [...] Routine, Hospital Performed Vendor / contact information: [facility] Patient location post discharge: home Service requested: IV abx Start date: 05/26/2014 Responsible MD post discharge contact info: PCP New (Edit) Referral to Home Health - at DISCHARGE Routine, Clinic Performed Agency name and contact information: [place] [facility] Patient location post discharge: home What services are requested: Registered Nurse, Home Health Aide, Physical Therapy, Occupational Therapy Start date: 06/06/2014 Responsible MD post discharge contact info: PCP PATIENT'S LOCATION: Tana Freddy Shelton [address] [place] [phone] (home) In discussion with the attending physician, it is certified that this patient is under their care and that they, or a Nurse Practitioner,Clinical Nurse specialist or Physician Travel Services Professional who is working directly with them, had [...] Continue with therapies OT: Continue with therapies DIPLOMA PHARMACY TECHNICIAN: Continue support HOME HEALTH CARE AGENCY: [facility] PHONE: [phone] FAX: [phone] Start of care: 05/26/14 Please note that any additional orders needs or changes will need to be obtained from this patient's PCP: NAINA LINDSEY MD [address] / [place] [address] All VNA agencies which cover the area of patient's residence have been reviewed, either verbally or in writing, and patient/family have chosen the home health care agency noted Emergency contact: After hours and weekends, call the [facility] test engine operator at and ask them to page the neurosurgery resident loss prevention specialist. * Plan of Care - Margot [...] yo. Supervision: Continuous; Moraima. Fannie at home family member caretaker at bedside this morning ; Mom [...] Health Knowledge, Opportunity for Enhanced (Adult, NICU, [place], Obstetrics, Pediatric) Goal: Identify Signs and Symptoms [...] Health Knowledge, Opportunity for Enhanced (Adult, NICU, [place], Obstetrics, Pediatric) Goal: Identify Signs and Symptoms [...] AM EST Clinical Pharmacist Note-Vancomycin Tana Shelton [id number] 1995 Tana Shelton is a 18 y.o. [...] have. Alternately, during off-hours you may call [phone] to contact a pharmacist. Elmer Tobin PHARMD Pager [phone] * Plan of Care - Leana Hicks [...] Operative Note Patient Name: Tana Shelton : [id number] MR#: [id number] Case Date: 05/26/2014 Surgeon: Surgeon(s) and Role: [...] (Interventions Implemented as Appropriate) 05/22/14 0634 05/24/14 5814 Discharge Needs Assessment Concerns to be Addressed [...] Health Knowledge, Opportunity for Enhanced (Adult, NICU, [place], Obstetrics, Pediatric) Knowledgeable about Health Subject/Topic achieves [...] (Interventions Implemented as Appropriate) 05/22/14 0634 05/24/14 9832 Discharge Needs Assessment Concerns to be Addressed [...] BOTH LEGS performed by YAS OLIVER at [facility] OR ??? Removal deep implant 08/15/2010 REMOVAL IMPLANT, DEEP, BRUNO performed by YAS OLIVER at [facility] OR ??? Osteotomy femur shaft/supracondy 08/15/2010 ??OSTEOTOMY, FEMUR SHAFT OR SUPRACONDYLAR W/O FIXATION performed by YAS OLIVER at [facility] OR ??? Remove spinal canal catheter N/A 05/11/2014 REMOVAL OF INTRATHECAL OR EPIDURAL CATHETER performed by Jamaal Samuel MD at [facility] OR ??? Remove infusn device/pump N/A 05/11/2014 REMOVAL OF SPINE INFUSION PUMP performed by Jamaal Samuel MD at [facility] OR ? ? I&d, post spine, lumb/sacr/lumbosac N/A 05/20/2014 @I & D, OPEN, DEEP ABSCESS, LUMBAR, SACRAL, LUMBOSACRAL performed by Freddy Burciaga MD at [facility] OR ??? Repr, dural/csf leak, not req laminectomy N/A 05/20/2014 @REPAIR DURAL\CSF LEAK,NOT REQUIRING LAMINECTOMY performed by Freddy Burciaga MD at [facility] OR Social and Developmental History: Patient lives with her family in a single level home in [place], [place]. Pt's mother reports that their home [...] has an older sister who lives in [place] and 3 younger brothers. She likes to [...] RN and mom assist. Feeding: per mom: [place] assist for use of utensils; not observed [...] to d/c home with support and continued PT/OT/LIVE IN HOUSEKEEPER NANNY/VNA services. Spoke with CRC about consultfor new [...] you for this occupational therapy consult. Pager: [phone] Mary oJe OT 05/24/2014 Occupational Therapy Rehabilitation Department * [...] family in a single story home in [place], [place]. Pt's mother reports that there is no stair requirement, and that she has all necessary equipment. Stairs: 0 without a rail to enter Baseline Mobility: Completely dependent for all care, home nursing VNA services 3x/week, school-based PT/OT/LIVE IN HOUSEKEEPER NANNY, pt due to receive a communication device [...] appropriate and joins in counting with this brief writer while stretching Objective: Pt seen for [...] minutes Natividad Esqueda PT, DPT 05/24/2014 Pager: [phone] Physical Therapy Inpatient Rehabilitation Department * Plan [...] based on it's ability to penetrate the FACILITIES MAINTENANCE SUPERVISOR. We need todiscuss whether to pursue an [...] placement of baclofen pump in 2007 in [place]. Due to lack of efficacy the baclofen [...] and Lipase were normal. Per her daycare infant caregiver, may be related to administration of oxycodone as this has been issue in the past. Cannotexclude component of baclofen withdrawal, but less likely. No current concern for acute FACILITIES MAINTENANCE SUPERVISOR process. - Serial exams. Ensure daily BMs [...] although it may not have the best FACILITIES MAINTENANCE SUPERVISOR penetration unless meninges are actually inflamed. - [...] PREVENTION: Assistance: Full assist, mom at bedside. health aide will be coming in today to [...] Operative Note Patient Name: Tana Shelton : [id number] MR#: [id number] Case Date: 05/20/2014 - 05/21/2014 Surgeon: Surgeon(s) [...] mcL Appearance UA Hazy (*) Clear Spec [place] UA 1.026 1.002 - 1.030 Color UA [...] TANA SHELTON Ordered By: Freddy BURCIAGA MR#: [id number] LOC: OR /Sex: 1995 (18 years), Female PROCEDURE: Tissue Culture SOURCE: Back COLLECTED: 05/20/2014 20:20 FREE TEXT SOURCE: Lumbar Wound Culture STARTED: 05/20/2014 22:13 STAINS / PREPARATIONS Gram Stain Report Verified:05/20/2014 22:28 Few White Blood Cells seen No microorganisms seen. TISSUE CULTURE Result Value Range Tissue Culture Value: Patient Name: TANA SHELTON Ordered By: Freddy BURCIAGA MR#: [id number] LOC: OR /Sex: 1995 (18 years), Female [...] for washout,wound repair, broad spectrum antibiotics. Travis Burcigaa MD Neurosurgery * ED Triage - [place] [...] PM EST Office Visit [place] [address] Hollie Ambriz MD [facility] DR [place] [address] Pending Results Name Type Priority Associated Diagnoses [...] REQUIRING LAMINECTOMY Routine 05/20/2014 10:22 PM EST DANCER OR CHOREOGRAPHER CULTURE Routine 5 10:01 PM EST ANAEROBIC [...] Metabolic Panel (non-fasting) (06/02/2014 5:55 AM EST) [facility] Signature Glucose 75 60 - 199 [...] the following links into your internet browser. [email or web address] Blood specimen (specimen) 06/02/2014 5:55 AM EST 06/02/2014 6:09 AM EST Narrative Resulting Agency Comment Spec In Lab S Alek Burciaga MD CHEMISTRY ORDERABLES Performing Organization Address [facility]/ZIP Co de Phone Number [facility] * (ABNORMAL) Sedimentation rate (06/01/2014 12:40 PM EST) Sedimentation Rate Automated 46(H) 0 - 20 mm/hr [facility] Blood specimen (specimen) Venous Draw / Unknown 06/01/2014 12:40 PM EST 06/01/2014 12:48 PM EST Narrative Resulting Agency Comment Spec In Lab S Alek Burciaga MD HEMATOLOGY ORDERABLE S Performing Organization Address [facility] de Phone Number [facility] * High Sensitivity CRP (06/01/2014 12:40 PM EST) C-Reactive Protein High Sensitivity 15.4 mg/L [facility] Comment: Interpretations: 1) For accurate [...] MD HEMATOLOGY ORDERABLE S Performing Organization Address City/[facility]/ZIP Co de Phone Number CERNER MILLENNIUM [...] S Alek Burciaga MD HEMATOLOGY ORDERABLE S [facility] * (ABNORMAL) Basic Metabolic Panel (non-fasting) (06/01/2014 12:40 PM EST) [facility] Glucose 95 60 - 199 mg/dL CERNER [...] the following links into your internet browser. [email or web address]://[email or web address] [email or web address] Blood specimen (specimen) 06/01/2014 12:40 PM EST [...] S Alek Burciaga MD HEMATOLOGY ORDERABLE S [facility] MILL[facility] * (ABNORMAL) Basic Metabolic Panel [...] the following links into your internet browser. [email or web address] Blood specimen (specimen) 05/30/2014 6:50 AM EST [...] Metabolic Panel (non-fasting) (05/29/2014 7:13 AM EST) [facility] Glucose 83 60 - 199 mg/dL CERNER [...] the following links into your internet browser. http://[employer]/DHnkdep [email or web address]://[employer]/DHMCnkf Blood specimen (specimen) 05/29/2014 7:13 AM EST [...] MD HEMATOLOGY ORDERABLE S Performing Organization Address City/[facility]/ZIP Co de Phone Number CERALIN TOMASENNIUM [...] Lab S Alek Burciaga MD CHEMISTRY ORDERABLES [facility] * (ABNORMAL) Basic Metabolic Panel [...] the following links into your internet browser. http://[employer]/DHnkdep [email or web address]://[employer]/DHMCnkf Blood specimen (specimen) 05/28/2014 9:00 AM EST [...] the following links into your internet browser. http://[employer]/DHnkdep [email or web address]://[employer]/DHMCnkf Blood specimen (specimen) 05/27/2014 5:30 AM EST 05/27/2014 5:39 AM EST Narrative Resulting Agency Comment Spec In Lab S Alek Burciaga MD CHEMISTRY ORDERABLES [facility] * Anaerobic Culture (05/26/2014 5:30 PM EST) Anaerobic Culture ? Patient Name: TANA SHELTON ? Ordered By: Freddy BURCIAGA ? MR#: [id number] ?LOC: ??PA ? /Sex: ??1995 (18 years), [...] ? Ordered By: Freddy BURCIAGA ? MR#: [id number] ?LOC: ??PA ? /Sex: ??1995 (18 years), [...] S ? Patient: TANA SHELTON ? MR#: [id number] ? S=Susceptible ??I=Intermediate ??R=Resistant ??NA=Not Applicable ? [...] ? Ordered By: Freddy BURCIAGA ? MR#: [id number] ?LOC: ??PA ? /Sex: ??1995 (18 years), [...] Burciaga MD MICROBIOLOGY - GENER AL ORDERABLES [facility] * Tissue culture (05/26/2014 5:30 PM EST) Tissue Culture ? Patient Name: TANA SHELTON ? Ordered By: Freddy BURCIAGA ? MR#: [id number] ?LOC: ??PA ? /Sex: ??1995 (18 years), [...] plates. ? Patient: SHELTONTANA Freddy ? MR#: [id number] ? SUSCEPTIBILITY RESULTS ? Coagulase negative Staphylococcus [...] (1) ? Gentamicin is not appropriate for Otero-therapy. ? (2) ? Penicillin resistant, Nafcillin susceptible [...] ? Ordered By: Freddy BURCIAGA ? MR#: [id number] ?LOC: ??PA ? /Sex: ??1995 (18 years), [...] ? Ordered By: Freddy BURCIAGA ? MR#: [id number] ?LOC: ??PA ? /Sex: ??1995 (18 years), [...] BANK LAB ORDER MYRANDA Performing Organization Address [facility] Co de Phone Number LINDA BASHIR * ABO/Rh Typing (05/26/2014 12:40 PM EST) ABORH Type O Pos LINDA BASHIR Blood specimen (specimen) 05/26/2014 12:40 PM EST 05/26/2014 12:59 PM EST Narrative Resulting Agency Comment Spec In Lab S Alek Burciaga MD BLOOD BANK LAB ORDER MYRANDA Performing Organization Address [facility] Co [...] the following links into your internet browser. http://[employer]/DHnkdep http://[employer]/DHMCnkf Blood specimen (specimen) 05/26/2014 4:15 AM EST 05/26/2014 4:35 AM EST Narrative Resulting Agency Comment Spec In Lab S Alek Burciaga MD CHEMISTRY ORDERABLES LINDA BASHIR * Place PICC Line: Contact Vascular Access Page [phone] (05/25/2014 4:01 PM EST) Narrative Iron Aden [...] to the planned procedure. Hand Hygiene: The cupola operator did perform hand hygiene prior to line insertion. Catheter type: PICC Lot number: [id number] Procedure Technique: Skin was prepped with chlorhexidine. [...] focal. COMPARISON: Scoliosis radiographs from 12/16/2011 FINDINGS: Hospice Fellow views demonstrate severe rightward scoliotic deformity centered [...] No gross collections in the cervical spine. Hospice Fellow coronal image 8 of series 8 demonstrates [...] inf,focal. COMPARISON: Scoliosis radiographs from 12/16/2011 FINDINGS: Hospice Fellow views demonstrate severe rightward scoliotic deformity centered [...] abnormalities. No grosscollections in the cervical spine. Hospice Fellow coronal image 8 of series 8 demonstrates [...] Narrative 05/25/2014 4:10 PM EST See accession #[id number] for dictation of this study. This report was reviewed by Andrade Rebolledo MD at 05/25/2014 4:05 PM Film and interpretation reviewed by the attending Procedure Note Andrade Roth MD - 05/25/2014 See accession #[id number] for dictation of this study. This report was reviewed by Andrade Rebolledo MD at 05/25/2014 4:05 PM Film and interpretation reviewed by the attending Alek Dumont [place] [facility] MRI ORDERABLES * Differential, Automated [...] MD HEMATOLOGY ORDERABLE S Performing Organization Address [facility] de Phone Number CERALIN [...] MD HEMATOLOGY ORDERABLE S Performing Organization Address [facility] Co [...] the following links into your internet browser. http://[employer]/DHnkdep http://[employer]/DHMCnkf Blood specimen (specimen) 05/25/2014 5:00 AM EST [...] the following links into your internet browser. http://[employer]/DHnkdep http://[employer]/DHMCnkf Blood specimen (specimen) 05/24/2014 12:42 PM EST 05/24/2014 12:42 PM EST Narrative Resulting Agency Comment Spec In Lab S Alek Burciaga MD CHEMISTRY ORDERABLES Performing Organization Address [facility] de Phone Number CERALIN [...] Burciaga MD CHEMISTRY ORDERABLES Performing Organization Address [facility] de Phone Number CERALIN [...] Smith MD CHEMISTRY ORDERABLES Performing Organization Address [facility] Co de Phone Number [facility] * Lipase (05/22/2014 12:45 PM EST) Pathologist [facility] Lipase 44 0 - 60 unit/L [facility] Blood specimen (specimen) 05/22/2014 12:45 PM EST 05/22/2014 1:03 PM EST Narrative Resulting Agency Comment Spec In Lab Lucho Smith MD CHEMISTRY ORDERABLES Performing Organization Address [facility] Phone Number [facility] * Amylase (05/22/2014 12:45 PM EST) Pathologist [facility] Amylase 89 28 - 100 unit/L [facility] Blood specimen (specimen) 05/22/2014 12:45 PM EST 05/22/2014 1:03 PM EST Narrative Resulting Agency Comment Spec In Lab Lucho Smith MD CHEMISTRY ORDERABLES Performing Organization Address [facility] Phone Number [facility] * (ABNORMAL) Comprehensive metabolic panel (non-fasting) (05/22/2014 12:45 PM EST) [facility] Glucose 81 60 - 199 mg/dL [facility] M[facility] Comment:Diabetes: >=200 mg/d L plus [...] mass. Sodium 142 135 - 145 mmol/L [facility] Potassium 3.6 3.5 - 5.0 [...] 8.5 - 10.5 mg/dL [facility] Comment:result rechecked-[facility] Protein, Total 7.1 6.4 - 8.3 gm/dL [...] the following links into your internet browser. http://[employer]/DHnkdep http://[employer]/DHMCnkf Blood specimen (specimen) 05/22/2014 12:45 PM EST 05/22/2014 1:03 PM EST Narrative Resulting Agency Comment Spec In Lab Lucho Smith MD CHEMISTRY ORDERABLES [facility] * Differential, Automated (05/22/2014 6:10 [...] Platelet Volume 10.7 9.0 - 12.0 fL [facility] Blood specimen (specimen) 05/22/2014 6:10 AM EST 05/22/2014 6:22 AM EST Narrative Resulting Agency Comment Spec In Lab S Alek Burciaga MD HEMATOLOGY ORDERABLE S Performing Organization Address [facility] Co de Phone Number [facility] * Vancomycin, trough (05/22/2014 6:10 AM EST) Vancomycin, Trough 6.1 mg/L [facility] Comment: Therapeutic range for [...] Burciaga MD CHEMISTRY ORDERABLES Performing Organization Address [facility]/ZIP Co de Phone Number [facility] * (ABNORMAL) Basic Metabolic Panel (non-fasting) (05/22/2014 6:10 AM EST) Glucose 86 60 - 199 mg/dL [facility] Comment:Diabetes: >=200 mg/d L plus symptoms Blood Urea Nitrogen 3(L) 8 - 18 mg/dL [facility] Creatinine 0.27(L) 0.70 - 1.20 [...] the following links into your internet browser. http://[employer]/DHnkdep http://[employer]/DHMCnkf Blood specimen (specimen) 05/22/2014 6:10 AM EST [...] Metabolic Panel (non-fasting) (05/21/2014 4:23 AM EST) [facility] Glucose 107 60 - 199 mg/dL CERNER [...] the following links into your internet browser. http://[employer]/DHnkdep http://[employer]/DHMCnkf Blood specimen (specimen) 05/21/2014 4:23 AM EST 05/21/2014 4:38 AM EST Narrative Resulting Agency Comment Spec In Lab Freddy Burciaga MD CHEMISTRY ORDERABLES [facility] * Internal Carver Culture (05/20/2014 10:01 PM EST) Internal Carver Culture ? Patient Name: TANA SHELTON ? Ordered By: Freddy BURCIAGA ? MR#: [id number] ?LOC: ??PA ? /Sex: ??1995 (18 years), ? Female ? PROCEDURE: Internal Carver Culture ?SOURCE: Other ? COLLECTED: 05/20/2014 22:01 ? BODY SITE: Other ? STARTED: 05/20/2014 22:22 ?FREE TEXT SOURCE: retained baclafin pump tubing ? FINAL REPORT ? Final Report ? Verified:05/24/2014 10:28 ? Pseudomonas aeruginosa isolated ? Susceptibilities previously reported ? PRELIMINARY REPORT ? Preliminary Report ? Verified:05/23/2014 11:27 ? Pseudomonas aeruginosa isolated ? Susceptibilities previously reported ? [facility] Specimen of unknown material (specimen) TOPOGRAPHY UNKNOWN / Unknown 05/20/2014 10:01 PM EST 05/20/2014 10:21 PM EST Comment:RETAINED BACLAFIN PU MP TUBING Narrative Resulting Agency Comment Spec In Lab Freddy Burciaga MD MICROBIOLOGY - GENER AL ORDERABLES [facility] * Anaerobic Culture (05/20/2014 9:25 PM EST) Anaerobic Culture ? Patient Name: TANA SHELTON ? Ordered By: Freddy BURCIAGA ? MR#: [id number] ?LOC: ??PA ? /Sex: ??1995 (18 years), [...] ? Ordered By: Freddy BURCIAGA ? MR#: [id number] ?LOC: ??PA ? /Sex: ??1995 (18 years), [...] ? Patient: CRISTO SHELTONLIE S ? MR#: [id number] ? S=Susceptible ??I=Intermediate ??R=Resistant ??NA=Not Applicable ? DDS=Dose dependent-suscept ible ??NS=Non-suscepti ble ? LINDA BASHIR Structure of back of trunk (body structure) 05/20/2014 9:25 PM EST 05/20/2014 10:12 PM EST Comment:LUMBAR WOUND CULTURE #2 Narrative Resulting Agency Comment Spec In Lab Freddy Burciaga MD MICROBIOLOGY - GENER AL ORDERABLES LINDA ABSHIR * Anaerobic Culture (05/20/2014 8:20 PM EST) Anaerobic Culture ? Patient Name: TANA SHELTON ? Ordered By: Freddy BURCIAGA ? MR#: [id number] ?LOC: ??PA ? /Sex: ??1995 (18 years), [...] ? Ordered By: Freddy BURCIAGA ? MR#: [id number] ?LOC: ??PA ? /Sex: ??1995 (18 years), [...] ? Ordered By: BELKIS LOUIE ? MR#: [id number] ?LOC: ??PA ? /Sex: ??1995 (18 years), ? Female ? PROCEDURE: Urine Culture ?SOURCE: U [facility] ? COLLECTED: 05/20/2014 18:46 ? STARTED: [...] Urine Dipstick Hazy(A) Clear [facility] Specific [place] Urine Automated 1.026 1.002 - 1.030 CERNER [...] Louie MD URINE ORDERABLES Performing Organization Address [facility] de Phone Number LINDA BASHIR * L-Lactate2 Whole Blood (05/20/2014 6:17 PM EST) Lactate WB 1.6 0.5 - 2.2 mmol/L [facility] Blood specimen (specimen) 05/20/2014 6:17 PM EST 05/20/2014 6:17 PM EST Belkis Louie MD CHEMISTRY ORDERABLES Performing Organization Address [facility] de Phone Number LINDA BASHIR * Blood culture (05/20/2014 6:00 PM EST) Blood Culture ? Patient Name: TANA SHELTON ? Ordered By: BELKIS LOUIE ? MR#: [id number] ?LOC: ??PA ? /Sex: ??1995 (18 years), [...] MICROBIOLOGY - BLOOD ORDERABLES Performing Organization Address [facility] Co de Phone Number LINDA KEMPIUM * Green Tube HOLD (05/20/2014 5:15 PM EST) Green Hold Sample in lab. LINDA TOMASENNIUM Blood specimen (specimen) Venous Draw / Unknown 05/20/2014 5:15 PM EST 05/20/2014 5:32 PM EST Belkis Louie MD CHEMISTRY ORDERABLES Performing Organization Address [facility] de Phone Number LINDA [...] ? Ordered By: BELKIS LOUIE ? MR#: [id number] ?LOC: ??PA ? /Sex: ??1995 (18 years), [...] MICROBIOLOGY - BLOOD ORDERABLES Performing Organization Address [facility] Co de Phone Number [facility] * Glucose, random (05/20/2014 5:15 PM EST) Glucose 81 60 - 199 mg/dL [facility] Comment:Diabetes: >=200 mg/d L plus symptoms Blood specimen (specimen) 05/20/2014 5:15 PM EST 05/20/2014 5:31 PM EST Narrative Resulting Agency Comment Spec In Lab Belkis Louie MD CHEMISTRY ORDERABLES Performing Organization Address [facility] de Phone Number [facility] * (ABNORMAL) Creatinine (05/20/2014 5:15 PM EST) Creatinine 0.37(L) 0.70 - 1.20 mg/dL [facility] Comment: Please note that the pediatric reference intervals supplied above were not validated at [facility]. Results from pediatric patients should be interpreted in conjunction to the patient's age, height and muscle mass. Est Glomerular Filtration Rate >60 >=60 [facility] Comment: This estimated GFR (eGFR) [...] the following links into your internet browser. [email or web address] http://[employer]/DHMCnkf Blood specimen (specimen) 05/20/2014 5:15 PM EST [...] Louie MD CHEMISTRY ORDERABLES Performing Organization Address [facility] Co [...] Louie MD CHEMISTRY ORDERABLES Performing Organization Address [facility]/State/ZIP Co de Phone Number LINDA KEMPIUM documented [...] Nely Boss, Indication for (Active or Suspected): FACILITIES MAINTENANCE SUPERVISOR/Meningitis Given 06/02/2014 5:57 AM EST 2 g 100 mL/hr Given 06/01/2014 10:41 PM EST 2 g 100 mL/hr Given 06/01/2014 2:10 PM EST 2 g 100 mL/hr cefTRIAXone (ROCEPHIN) 1g in dextrose 5% 50mL 1 g, Intravenous, ONCE, 1 dose, On 05/20/14 at 2315, Administer over 30 Minutes, Indication for (Active or Suspected): FACILITIES MAINTENANCE SUPERVISOR/Meningitis Given 05/21/2014 1:32 AM EST 1 g 100 mL/hr cefTRIAXone (ROCEPHIN) 2g in dextrose 5% 50mL 2,000 mg (2 g), Intravenous, EVERY 12 HOURS, First dose on 05/20/14 at 1000, Until Discontinued, Administer over 30 Minutes, Indication for (Active or Suspected): for FACILITIES MAINTENANCE SUPERVISOR/Meningitis Given 05/22/2014 10:59 AM EST 2,000 mg [...] 30 Minutes, Indication for (Active or Suspected): FACILITIES MAINTENANCE SUPERVISOR/Meningitis Given 05/22/2014 5:40 AM EST 500 mg [...] level. Please see MAR for scheduled level., Routine, Indication for (Active or Suspected): Skin/Skin Structure Given 05/22/2014 7:10 AM EST 1,000 mg [...] level. Please see MAR for scheduled level., Routine, Indication for (Active or Suspected): Skin/Skin Structure Given 05/22/2014 2:19 PM EST 1,000 mg [...] level. Please see MAR for scheduled level., Routine, Indication for (Active or Suspected): GI/Intra-abdominal Given 05/23/2014 11:53 AM EST 1,000 mg [...] level. Please see MAR for scheduled level., Routine, Indication for (Active or Suspected): GI/Intra-abdominal Given 05/24/2014 12:41 PM EST 1,000 mg [...] level. Please see MAR for scheduled level., STAT, Indication for (Active or Suspected): Skin/Skin Structure Given 06/02/2014 8:36 A M EST 1,000 mg Given 06/02/2014 1:20 AM [...] Nely Boss, Indication for (Active or Suspected): FACILITIES MAINTENANCE SUPERVISOR/Meningitis 0616 (Given - Provider: Linsey Mcintyre RN)1446 (Given - Provider: Dolores Patino RN)2201 (Given - Provider: Linsey Mcintyre RN) 0627 (Given - Provider: Linsey Mcintyre RN)1410 (Given - Provider: Tasha Yu)2241 (Given - Provider: Margot Monzon, EUNICE) 0557 (Given - Provider: Margot Monzon RN) [...] 958 (Given - Provider: Dolores Patino RN) 100 (Given - Provider: Dolores Patino RN - [...] level. Please see MAR for scheduled level., STAT, Indication for (Active or Suspected): Skin/Skin Structure 0138 (Given - Provider: Linsey Mcintyre RN)0943 (Given - Provider: Dolores Patino RN)1758 (Given - Provider: Dolores Patino, EUNICE) 0142 (Given - Provider: Linsey Mcintyre RN)1027 (Given - Provider: Yas Cam RN)1817 (Given - Provider: Dolores Patino RN) 0120 (Given - Provider: Margot Monzon, EUNICE)0836 (Given - Provider: Hedy Vazquez, EUNICE) Continuous Medication Order 05/31/2014 06/01/2014 06/02/2014 sodium chloride 0.9% with potassium chloride 20 mEq infusion (CANCELED) 50 mL/hr, Intravenous, CONTINUOUS, Starting on Thu05/23/14 at 1830, Until Thu06/02/14 at 1832 1244 (New Bag - Provider: Dolores Patino RN)1330 (Stopped - Provider: oDlores Patino RN - Comment: OOb to WC [...] level. Please see MAR for scheduled level., STAT, Indication for (Active or Suspected): Skin/Skin Structure And Vancomycin, trough (CANCELED) New collection, Timed, [...] Routine documented in this encounter Care Teams Diabetes Education Coordinator Relationship Specialty Start Date End Date Naina Lindsey MD [address] [place] [address] PCP - General 03/19/10 08/25/16 documented as of this encounter
--- OUTSIDE RECORDS SUMMARY | 2024-01-12 21:19 | XMS_ITS | Encounter Summary ---
[place] [address] Care Team Providers Care Metals Analyst Name Role Phone Naina Lindsey MD Primary Care Provider [phone] Reason for Visit * Reason Onset Date Comments Referral 09/13/2014 Encounter Details Date Type Department Care Team (Late st Contact Info) Description 09/13/2014 Telephone [place] [phone] Emelyn Perez Referral Social History Tobacco Use [...] ready scheduled. * Telephone Encounter - Love Chavze - 09/26/2014 9:49 AM EDT Parent requesting possible sooner eval not on a because it is for a scoliosis brace that is needed and she can't really wait until March. * Telephone Encounter - Emelyn Perez - 09/13/2014 2:54 PM EDT Message at home number to call to schedule appointment from referral: [facility] On a in [facility]. documented in this encounter Plan of Treatment Upcoming Encounters Date Type Department Care Team (Late st Contact Info) Description 06/02/2024 12:30 PM EST Office Visit [place] [address] Hollie Ambriz MD [facility] DR [place] [address] documented as of this encounter Visit Diagnoses Not on filedocumented in this encounter Care Teams Metals Analyst Relationship Specialty Start Date End Date Naina Lindsey MD [address] [place] [address] [place] [address] PCP - General 03/19/10 08/25/16 documented as of this encounter
--- OUTSIDE RECORDS SUMMARY | 2024-01-12 21:19 | XMS_ITS | Encounter Summary ---
Author Organization [facility] [place] [address] Care Team Providers Care Automotive Engineer Name Role Phone Naina Lindsey MD Primary Care Provider [phone] Encounter Details Date Type Department Care Team (Late st Contact Info) Description 06/19/2014 External Results [place] [phone] Donnell Dotson MD [facility] [address] [facility] [place], [place] [id number] Social History Tobacco Use Types Packs/Day Years [...] PM EST Office [place] [phone] Hollie Ambriz MD [facility] [place] [address] documented as of this encounter Procedures Procedure Name Priority Date/Time Associated Diagnosis Comments IMPLANTABLE DEVICES SCAN Routine 05/03/2014 3:51 PM EST documented in this encounter Visit Diagnoses Not on filedocumented in this encounter Care Teams Automotive Engineer Relationship Specialty Start Date End Date Naina Lindsey MD [address] [place] [address] PCP - General 03/19/10 08/25/16 documented as of this encounter
--- OUTSIDE RECORDS SUMMARY | 2024-01-12 21:19 | XMS_ITS | Encounter Summary ---
[place] [address] Care Team Providers Care Bung Dropper Name Role Phone Naina Lindsey MD Primary Care Provider [phone] Encounter Details Date Type Department Care Team (Late st Contact Info) Description 05/26/2014 4:16 PM EST Anesthesia Event [place] [phone] Buster Rajput MD [facility] [place] [address] Yury Kruse MD [facility] [place] [address] Anesthesia Record Procedure Summary Procedure Name Responsible [...] per physician; 06/02/14; 1436 05/25/14 1602 by Irno Aden RN 06/02/14 1436 by Ramiro Aden [...] FEMORAL HEAD, BILATERAL performed by BARRERA OLIVER [facility] OR ??? Apply of hip casts, two legs 08/15/2010 CAST APPLICATION, HIP SPICA, BOTH LEGS performed by BARRERA OLIVER at [facility] OR ??? Removal deep implant 08/15/2010 REMOVAL IMPLANT, DEEP, BRUNO performed by BARRERA OLIVER at [facility] OR ??? Osteotomy femur shaft/supracondy 08/15/2010 ??OSTEOTOMY, FEMUR SHAFT OR SUPRACONDYLAR W/O FIXATION performed by BARRERA OLIVER at [facility] OR ??? Remove spinal canal catheter N/A 05/11/2014 REMOVAL OF INTRATHECAL OR EPIDURAL CATHETER performed by Jamaal Samuel MD at [facility] OR ??? Remove infusn device/pump N/A 05/11/2014 REMOVAL OF SPINE INFUSION PUMP performed by Jamaal Samuel MD at [facility] OR ? ? I&d, post spine, lumb/sacr/lumbosac N/A 05/20/2014 @I & D, OPEN, DEEP ABSCESS, LUMBAR, SACRAL, LUMBOSACRAL performed by Freddy Isbell MD at [facility] OR ??? Repr, dural/csf leak, not req laminectomy N/A 05/20/2014 @REPAIR DURAL\CSF LEAK,NOT REQUIRING LAMINECTOMY performed by Freddy Isbell MD at [facility] OR History Substance Use Topics ??? Smoking status: Never Smoker ??? Smokeless tobacco: Never Used Comment: NO SMOKERS IN THE HOME ??? Alcohol Use: No History Drug Use No Allergies Allergen Reactions ??? Fluoxetine Other (See Comments) HIVES, HEART RACES ??? Tegaderm [Transparent Dressings] Itching and Dermatitis Please use TI1158 Medications: MAR and/or home medications have been [...] Office [place] [address] Hollie Ambriz MD [facility] [place] [address] documented as of this encounter Visit Diagnoses [...] mg documented in this encounter Care Teams Bung Dropper Relationship Specialty Start Date End Date Naina Lindsey MD [address] [place] [address] PCP - General 03/19/10 08/25/16 documented as of this encounter
--- OUTSIDE RECORDS SUMMARY | 2024-01-12 21:19 | XMS_ITS | Encounter Summary ---
Author Organization [facility] [place] [address] Care Team Providers Care Livestock Speculator Name Role Phone Naina Lindsey MD Primary Care Provider [phone] Reason for Visit * Reason Onset Date Comments Bumped Appointment 09/29/2014 Encounter Details Date Type Department Care Team (Late st Contact Info) Description 09/29/2014 Telephone [place] [phone] Mesha Cabral MD [facility] [place] [address] Bumped Appointment Social History Tobacco Use Types [...] PM EST Office [place] [address] Hollie Ambriz MD [facility] [place] [address] documented as of this encounter Visit Diagnoses Not on filedocumented in this encounter Care Teams Livestock Speculator Relationship Specialty Start Date End Date [place] [address] PCP - General 03/19/10 08/25/16 documented as of this encounter
--- OUTSIDE RECORDS SUMMARY | 2024-01-12 21:19 | XMS_ITS | Encounter Summary ---
Author Organization [facility] [place] [address] Care Team Providers Care Rail Engineer Name Role Phone Naina Lindsey MD Primary Care Provider [phone] Reason for Visit * Reason Comments Follow-up HCK / REMOVE DEE Hayes Encounter Details Date Type Department Care Team (Latest Contact Info) Description 06/08/2014 4:30 PM EST Office Visit [place] [address] Alek Sinha, HOT METAL CHARGER [facility] [place] [address] Spasticity; Postoperative wound infection, subsequent encounter Discharge [...] this encounter Progress Notes * Alek Sinha, HOT METAL CHARGER - 06/23/2014 3:02 PM EST Florin Cavazos was seen today in the pediatric neurosurgery clinic for a post-op follow up visit. Tana is a 18 year old girl with a history of increased tone which was managed with intrathecal baclofen. She underwent placement of an intrathecal baclofen pump in 2007 at the [facility]. Mother feels that the pump [...] EST Office Visit [place] [address] Hollie Ambriz MD [facility] [place] [address] documented as of this encounter Visit Diagnoses Diagnosis Spasticity Abnormal involuntary movements Postoperative wound infection, subsequent encounter documented in this encounter Care Teams Rail Engineer Relationship Specialty Start Date End Date Naina Lindsey MD [address] [place] [address] PCP - General 03/19/10 08/25/16 documented as of this encounter
--- OUTSIDE RECORDS SUMMARY | 2024-01-12 21:19 | XMS_ITS | Encounter Summary ---
Author Organization [facility] [place] [address] Care Team Providers Care Scaffold Builder Name Role Phone Naina Lindsey MD Primary Care Provider Reason for Visit * Reason Onset Date Comments Appointment 10/12/2014 Encounter Details Date Type Department Care Team (Late st Contact Info) Description 10/12/2014 Telephone [place] [phone] Mesha Cabral MD [facility] [place] [address] Appointment Social History Tobacco Use Types Packs/Day [...] Office [place] [address] Hollie Ambriz MD [facility] [place] [address] documented as of this encounter Visit Diagnoses Not on filedocumented in this encounter Care Teams Scaffold Builder Relationship Specialty Start Date End Date Naina Lindsey MD [address] [place] [address] [place] [address] PCP - General 03/19/10 08/25/16 documented as of this encounter
--- OUTSIDE RECORDS SUMMARY | 2024-01-12 21:20 | XMS_ITS | Encounter Summary ---
Author Organization [facility] [place] [address] Care Team Providers Care Derrick Hand Name Role Phone Naina Lindsey MD Primary Care Provider [phone] Encounter Details Date Type Department Care Team (Late st Contact Info) Description 05/23/2014 External Results [place] [phone] Unknown None Social History Tobacco Use Types [...] PM EST Office [place] [phone] Hollie Ambriz MD [facility] [place] [address] documented as of this encounter Procedures Procedure Name Priority Date/Time Associated Diagnosis Comments ETHICS INSTRUCTOR Routine 05/21/2014 documented in this encounter Results * oil well services supervisor (05/21/2014) Unknown GENERAL SUPPLY ORDER MYRANDA documented in this encounter Visit Diagnoses Not on filedocumented in this encounter Care Teams Derrick Hand Relationship Specialty Start Date End Date Naina Lindsey MD [address] [place] [address] PCP - General 03/19/10 08/25/16 documented as of this encounter
--- OUTSIDE RECORDS SUMMARY | 2024-01-12 21:20 | XMS_ITS | Encounter Summary ---
[place] [address] Care Team Providers Care Supervisor Matrix Name Role Phone Naina Lindsey MD Primary Care Provider [phone] Encounter Details Date Type Department Care Team (Late st Contact Info) Description 05/20/2014 8:18 PM EST Anesthesia Event [place] [phone] Eli Alexander MD [facility] [place] [address] Neva Gómez MD [facility] [place] [address] Anesthesia Record Procedure Summary Procedure Name Responsible [...] 05/20/14; 1800; jugular vein, external left (neck); amym-nyc-krznye catheter system; 18 gauge, 1 in length; [...] FEMORAL HEAD, BILATERAL performed by BARRERA OLIVER [facility] MAIN OR ??? Apply of [...] [facility] MAIN OR ??? Remove spinal canal catheter N/A 05/11/2014 REMOVAL OF INTRATHECAL OR EPIDURAL CATHETER performed by Jamaal Samuel MD at [facility] MAIN OR ??? Remove infusn device/pump N/A 05/11/2014 REMOVAL OF SPINE INFUSION PUMP performed by Jamaal Samuel MD at [facility] MAIN OR [...] PM EST Office Visit Infectious Disease at [facility] [place] [phone] Hollie Ambriz MD [facility] [place] [address] documented as of this encounter Visit Diagnoses [...] documented in this encounter Care Teams Supervisor Matrix Relationship Specialty Start Date End Date Naina Lindsey MD [address] [place] [address] PCP - General 03/19/10 08/25/16 documented as of this encounter
--- OUTSIDE RECORDS SUMMARY | 2024-01-12 21:20 | XMS_ITS | Encounter Summary ---
Author Organization [facility] [place] [address] Care Team Providers Care Picking Belt Operator Name Role Phone Naina Lindsey MD Primary Care Provider [phone] Reason for Visit * Reason Comments Post-op Problem Encounter Details Date Type Department Care Team (Late st Contact Info) Description 05/26/2014 4:30 PM EST - 05/26/2014 7:03 PM EST Surgery [place] [address] Freddy Burciaga MD [facility] [address] NE[place] [address] @I & D, OPEN, DEEP ABSCESS, LUMBAR, [...] Routine, Hospital Performed Vendor / contact information: [facility] Patient location post discharge: home Service requested: IV abx Start date: 05/26/2014 Responsible MD post discharge contact info: WILL Smith (Edit) Referral to Home Health - at DISCHARGE Routine, Clinic Performed Agency name and contact information: [facility] Patient location post discharge: home What services are requested: Registered Nurse, Home Health Aide, Physical Therapy, Occupational Therapy Start date: 05/26/2014 Responsible MD post discharge contact info: PCP PATIENT'S LOCATION: Tana Shelton [address] [place] [phone] (home) In discussion with the attending physician, it is certified that this patient is under their care and that they, or a Nurse Practitioner,Clinical Nurse specialist or Physician Web Manager who is working directly with them, had [...] Continue with therapies OT: Continue with therapies LOOM INSPECTOR: Continue support HOME HEALTH CARE AGENCY: [facility]. PHONE: [phone] FAX: [phone] Start of care: 05/26/14 Please note that any additional orders needs or changes will need to be obtained from this patient's PCP: MD Coby BRAGG DR / [facility] [id number] All VNA agencies which cover the area of patient's residence have been reviewed, either verbally or in writing, and patient/family have chosen the home health care agency noted Emergency contact: After hours and weekends, call the [facility] machine operator cane cutter at and ask them to page the neurosurgery resident diamond grader. documented in this encounter Medications at Time [...] and given to the patient or sales and merchandising representative. 6) If VNA was ordered, I [...] 0.9% 50 mL Mini-Bag Plus 2 g ObvwbytdnhjQ6O ??? baclofen 10 mg Oral Nightly ??? levonorgestrel-ethinyl estradiol 1 tablet Oral Daily ??? polyethylene glycol 17 g Oral Daily ??? sodium chloride 0.9 % 5 mL Intravenous BID ??? diaZEPam 5 mg Oral BID Continuous Infusions: ??? sodium chloride 0.9% with potassium chloride 20 mEq 50 mL/hr (06/01/14 2645) PRN Meds:acetaminophen OR acetaminophen, flu vaccine (36 [...] elevated HR this am S: Kenneth Rocco. [facility], [id number] singing ABCs and counting along with stretches [...] pt to d/chome with support and continued PT/OT/HYDRAULIC SPINNER/VNA services. Staff communication/Mobility Recommendations: Pt. Would benefit [...] timed interventions: 30 minutes for TherEx-F Pager: [phone] Mary Joe, OT Occupational Therapy Rehabilitation Department * Isra Perez RN - 06/01/2014 2:43 PM EST Patient Name: Tana Shelton Patient Age: 18 y.o. Birthdate: 1995 Admit date: 05/20/2014 Attending Physician: Jamaal Samuel MD OFFICE OF CARE MANAGEMENT Farhana Perez RN Pager: [phone] CLINICAL PIPELINE SUPERINTENDENT DIVISION PROGRESS NOTE e-DH reviewed. Report received from DEMI Sanchez. Patient continues to require acute inpatient care for the treatment of infection. Patient remains on triple abx while awaiting final cultures. [facility] and [facility] have been referred to for discharge. Met with patient's mother at bedside. Mom had multiple questions the other day regarding equipment for home. Mattress for hospital bed was ordered and delivered to home from [facility]. Tomasa Sling was ordered and is to be delivered by [facility] when it ships to [facility] warehouse. TLSO brace to be fitted by [facility]. Mom also inquired about a new motorized wheelchair. Called [facility] in [place] to see if patient would qualify, left message with Oliver- the director of orthopedics for [facility]. Patient will need a assessment and [...] 0.9% 50 mL Mini-Bag Plus 2 g MsgyancsmerS4W ??? baclofen 10 mg Oral Nightly ??? [...] family in a single story home in [place], [place]. Pt's mother reports that there is no stair requirement, and that she has all necessary equipment. Stairs: 0 without a rail to enter Baseline Mobility: Completely dependent for all care, home nursing VNA services 3x/week, school-based PT/OT/HYDRAULIC SPINNER, pt due to receive a communication device [...] than in previous treatment session, counting withthis underwriter solicitation director during stretching Objective: Patient seen for 45 [...] internal rotators, adductors ?? Pt helped this underwriter solicitation director with opposite UE when performing stretching as [...] session, playing with toys, playfully tricking this underwriter solicitation director when counting during passive stretching, and helping [...] exercise Natividad Esqueda PT, DPT 05/31/2014 Pager: [phone] Physical Therapy Inpatient Rehabilitation Department * Nathalie [...] OF CARE MANAGEMENT Farhana Perez RN Pager: [phone] CLINICAL PIPELINE SUPERINTENDENT DIVISION PROGRESS NOTE e-DH reviewed. Report received from DEMI Sanchez. Patient continues to require acute inpatient care for the treatment of infection. Patient is on triple abx. Patient needs a new mattress for her hospital bed at home. Patient's mother would like order placed with [employer]. Order pended and booking sent via [employer]! Plan: CRC will continue to follow for [...] pt to d/chome with support and continued PT/OT/HYDRAULIC SPINNER/VNA services. Staff communication/Mobility Recommendations: Pt. Would benefit [...] timed interventions: 45 minutes for TherEx Pager: [phone] Mary Joe OT Occupational Therapy Rehabilitation Department [...] 0.9% 50 mL Mini-Bag Plus 2 g FqefhxaltvfB1Q ??? baclofen 10 mg Oral Nightly ??? [...] OF CARE MANAGEMENT Farhana Perez RN Pager: [phone] CLINICAL PIPELINE SUPERINTENDENT DIVISION PROGRESS NOTE e-DH reviewed. Report received from [...] as pt becomes available. Please contact this underwriter solicitation director with any further questions or concerns. Thank you. Pager: [phone] Mary Joe OTR/L Occupational Therapy Inpatient Rehabilitation [...] family in a single story home in [place], [place]. Pt's mother reports that there is no stair requirement, and that she has all necessary equipment. Stairs: 0 without a rail to enter Baseline Mobility: Completely dependent for all care, home nursing VNA services 3x/week, school-based PT/OT/HYDRAULIC SPINNER, pt due to receive a communication device [...] pt very smiley today, counting with this underwriter solicitation director during stretching, showing off her favorite toys [...] exercise Natividad Esqueda PT, DPT 05/29/2014 Pager: [phone] Physical Therapy Inpatient Rehabilitation Department * Wai [...] not hesitate to page us on pager [phone] with further questions or concerns. Patient discussed with Dr. Wai Crabtree. Dimple Messina MD Fellow, Infectious Disease 05/29/2014 ID Staff: Discussed with Dr. Messina. Agree with current regimen. This will be a very difficult regimen at [facility] some further discussion is needed. We [...] 0.9% 50 mL Mini-Bag Plus 2 g MogbeggicynL7S ??? baclofen 10 mg Oral Nightly ??? [...] 0.9% 50 mL Mini-Bag Plus 2 g TtricosmixyB7S ??? baclofen 10 mg Oral Nightly ??? [...] CRC received call from EUNICE Hair, from [place], [place] or Asking for status as they will follow her after discharge for IV antibiotic treatment. She will need an OPAT order faxed to above agency when she is ready for discharge as well as administration teaching for home. When ready for discharge, [facility] [employer] PHONE: [phone] FAX: [phone] will also need to be updated. Referral had been made by previous CRC. Covering pager #[phone] for pager #[phone]. * Darius Maguire T - 05/27/2014 8:23 [...] 0.9% 50 mL Mini-Bag Plus 2 g QtkjunzjjkyQ4Z ??? baclofen 10 mg Oral Nightly ??? [...] clean and dry Wound without fluctuance [address] Assessment/Plan:: 18 y.o. female s/p removal [...] family in a single story home in [place], [place]. Pt's mother reports that there is no stair requirement, and that she has all necessary equipment. Stairs: 0 without a rail to enter Baseline Mobility: Completely dependent for all care, home nursing VNA services 3x/week, school-based PT/OT/HYDRAULIC SPINNER, pt due to receive a communication device [...] exercise Natividad Esqueda PT, DPT 05/26/2014 Pager: [phone] Physical Therapy Inpatient Rehabilitation Department * Freddy Burciaga MD - 05/26/2014 6:27 AM EST Neurosurgery - Inpatient Progress Note ID: Tana Shelton, 18 y.o. female s/p removal of retained hardware, washout of infection 05/20 POD 6 Interval Hx: -ALEKSANDRA -Neurologically stable Objective: Medications: Scheduled Meds: ??? cefTAZidime (FORTAZ) 2g vial attach to sodium chloride 0.9% 50 mL Mini-Bag Plus 2 g RozimxcneqwC7J ??? baclofen 10 mg Oral Nightly ??? [...] (05/26) or when appropriate. Please page this underwriter solicitation director if you have any questions, thank you. Natividad Esqueda PT Pager #[phone] Physical Therapy Inpatient Rehabilitation * Mary Joe, [...] pt to d/chome with support and continued PT/OT/HYDRAULIC SPINNER/VNA services. Spoke to CRC this about thoracic [...] timed interventions: 27 minutes for TherEx Pager: [phone] Mary Joe OT Occupational Therapy Rehabilitation Department [...] 0.9% 50 mL Mini-Bag Plus 2 g BowajvvubomC3V ??? baclofen 10 mg Oral Nightly ??? [...] of Care Management Farhana Perez RN Pager: [phone] Clinical Fuel Efficient Automobile Designer Home IV Antibiotic Therapy Referral Note. Report received from NeuroSurgery Team that patient will require continued home IV antibiotic therapy after discharge from the hospital. Met with patient/family to discuss vendor and visiting nurse choices for home IV antibiotic therapy. Reviewed Home Infusion Vendors and Home Health Agencies that serve patient???s address and accept patient???s insurance. Home Health Agency: Patient requested referral to [facility]. PHONE: [phone] FAX: [phone]. Referrals sent via [employer]ischarge. Home Infusion Vendor: Patient requested referral to [place], [place] Tel: or Fax: . Referrals sent [...] 0.9% 50 mL Mini-Bag Plus 2 g GrgilgyrnabD2A ??? baclofen 10 mg Oral Nightly ??? [...] 0.9% 50 mL Mini-Bag Plus 2 g IysfqgwzsngY1B ??? baclofen 10 mg Oral Nightly ??? [...] PM EST Office of Care Management Clinical Fuel Efficient Automobile Designer Patient Name: Tana Shelton : 1995, 18 [...] None on File (x) HEALTH /PRESCRIPTION COVERAGE: [facility] CURRENT HOME/COMMUNITY SERVICES/EQUIPMENT: DME: [facility] bed, wheelchair, tomasa lift, shower chair. Home Health Agency: [facility] PRIMARY CARE PHYSICIAN: NAINA LINDSEY MD [phone] POTENTIAL DISCHARGE NEEDS: Resume vna visits. Mother stated that she has [facility] - RN and Aide currently. Waiting to confirm this and pt needs. Might need home IV antibx. TRANSPORTATION @ D/C: family PLAN: CRC will continue to monitor progress, follow for continuity of care and assist with discharge planning while hospitalized Lesly Jesus RN Office of Care Management Clinical Fuel Efficient Automobile Designer Covering for Farhana Chris [phone] Pager [phone] * Yandy Dasilva, PharmD - 05/22/2014 9:46 AM EST Clinical Pharmacist Note-Vanc Tana S Dirk [id number] 1995 Tana Barlowrd is a 18 y.o. [...] have. Alternately, during off-hours you may call [phone] to contact a pharmacist. Yandy Dasilva PHARMBenjamin Pager [phone] * Freddy Burciaga MD - 05/22/2014 6:59 [...] Clinically does not seem to be of WAX PATTERN ASSEMBLER origin. Continue triple antibiotics. ID consult. Cultures [...] Diana RN Peds. Transferred to [place] [address] with transport services, RN + family members. Please call Anurag ICU-RN at [phone] with regards to any questions post transfer. [...] mcL Appearance UA Hazy (*) Clear Spec Jar[place]idge UA 1.026 1.002 - 1.030 Color UA [...] TANA SHELTON Ordered By: Freddy BURCIAGA MR#: [id number] LOC: OR /Sex: 1995 (18 years), Female PROCEDURE: Tissue Culture SOURCE: Back COLLECTED: 05/20/2014 20:20 FREE TEXT SOURCE: Lumbar Wound Culture STARTED: 05/20/2014 22:13 STAINS / PREPARATIONS Gram Stain Report Verified:05/20/2014 22:28 Few White Blood Cells seen No microorganisms seen. TISSUE CULTURE Result Value Ref Range Tissue Culture Value: Patient Name: TANA SHELTON Ordered By: EVITAFreddy IRENE MR#: [id number] LOC: OR /Sex: 1995 (18 years), Female [...] II initiated 0040: Report given to Jenn AUDIOMETRIC TECHNICIAN info reviewed/questions answered, pt ready for [...] to the planned procedure. Hand Hygiene: The collections rep did perform hand hygiene prior to line insertion. Catheter type: PICC Lot number: [id number] Procedure Technique: Skin was prepped with chlorhexidine. [...] warm and was flushed. They called the diamond grader neurosurgeon, who advised that they come to [...] FEMORAL HEAD, BILATERAL performed by YAS OLIVER formerly [facility] MAIN OR ??? Apply of hip casts, two legs 08/15/2010 CAST APPLICATION, HIP SPICA, BOTH LEGS performed by YAS OLIVER at [facility] MAIN OR ??? Removal deep implant 08/15/2010 REMOVAL IMPLANT, DEEP, BRUNO performed by YAS OLIVER at [facility] MAIN OR ??? Osteotomy femur shaft/supracondy 08/15/2010 ??OSTEOTOMY, FEMUR SHAFT OR SUPRACONDYLAR W/O FIXATION performed by YAS OLIVER at [facility] MAIN OR ??? Remove spinal canal catheter N/A 05/11/2014 REMOVAL OF INTRATHECAL OR EPIDURAL CATHETER performed by Jamaal Samuel MD at [facility] MAIN OR ??? Remove infusn device/pump N/A 05/11/2014 REMOVAL OF SPINE INFUSION PUMP performed by Jamaal Samuel MD at [facility] MAIN OR Medications: No current facility-administered medications [...] Tobacco exposure:No Day care/year in school: [employer] Physical Exam: Vitals: Patient Vitals for [...] mcL Appearance UA Hazy (*) Clear Spec Jarbidge UA 1.026 1.002 - 1.030 Color UA [...] Size requested: twin bed Vendor Name/Contact information: [employer] [facility] New (Edit) Referral for Outpatient Antibiotics Routine, Hospital Performed Vendor / contact information: [facility] Patient location post discharge: home Service requested: IV abx Start date: 05/26/2014 Responsible MD post discharge contact info: PCP New (Edit) Referral to Home Health - at DISCHARGE Routine, Clinic Performed Agency name and contact information: [facility] Patient location post discharge: home What services are requested: Registered Nurse, Home Health Aide, Physical Therapy, Occupational Therapy Start date: 06/06/2014 Responsible MD post discharge contact info: PCP PATIENT'S LOCATION: Tana Shelton [address] [place] [phone] (home) In discussion with the attending physician, it is certified that this patient is under their care and that they, or a Nurse Practitioner,Clinical Nurse specialist or Physician Web Manager who is working directly with them, had [...] Continue with therapies OT: Continue with therapies LOOM INSPECTOR: Continue support HOME HEALTH CARE AGENCY: [facility] PHONE: [phone] FAX: [phone] Start of care: 05/26/14 Please note that any additional orders needs or changes will need to be obtained from this patient's PCP: MD Coby BRAGG DR / [place] [address] All VNA agencies which cover the area of patient's residence have been reviewed, either verbally or in writing, and patient/family have chosen the home health care agency noted Emergency contact: After hours and weekends, call the [facility] machine operator cane cutter at and ask them to page the neurosurgery resident diamond grader. * Plan of Care - Margot Monzon [...] Health Knowledge, Opportunity for Enhanced (Adult, NICU, [place], Obstetrics, Pediatric) Goal: Identify Signs and Symptoms [...] relaxing environment. Mom aware of plan; Dr Spraks to evaluate later thisevening. PLAN MOVING FORWARD: Monitor closely for subtle S/S infection and or worsening pain. IV antibiotics INDIVIDUALIZED FALL PREVENTION: Assistance: Total; GDD 18 yo. Supervision: Continuous; Moraima. Fannie at home admitting manager at bedside this morning ; Mom arrived [...] Health Knowledge, Opportunity for Enhanced (Adult, NICU, [place], Obstetrics, Pediatric) Goal: Identify Signs and Symptoms [...] (Interventions Implemented as Appropriate) 05/25/14 0527 05/26/14 8285 Plan of Care Review Plan of Care [...] AM EST Clinical Pharmacist Note-Vancomycin Tana Shelton [id number] 1995 Tana Shelton is a 18 y.o. [...] contact a pharmacist. Elmer Tobin, [place] Pager [phone] * Plan of Care - Leana Hicks [...] Outcome: Ongoing (Interventions Implemented as Appropriate) 05/27/14 0959 Infection, Risk/Actual (Adult, Obstetrics) Infection Prevention/Resolution/Control making [...] Health Knowledge, Opportunity for Enhanced (Adult, NICU, [place], Obstetrics, Pediatric) Goal: Identify Signs and Symptoms [...] Burciaga MD - 05/26/2014 4:52 PM EST [facility] Operative Note Patient Name: Tana Shelton : [id number] MR#: [id number] Case Date: 05/26/2014 Surgeon: Surgeon(s) and Role: [...] (Interventions Implemented as Appropriate) 05/22/14 0634 05/24/14 3654 Discharge Needs Assessment Concerns to be Addressed [...] Health Knowledge, Opportunity for Enhanced (Adult, NICU, [place], Obstetrics, Pediatric) Goal: Identify Signs and Symptoms and Related Risk Factors Signs and symptoms and related risk factors are identified upon initiation of Human Response Clinical Practice Guideline (CPG) Outcome: Ongoing (Interventions Implemented as Appropriate) * Plan of Care - Carisa Godwin RN - 05/25/2014 8:02 AM EST Problem: Health Knowledge, Opportunity for Enhanced (Adult, NICU, [place], Obstetrics, Pediatric) Goal: Knowledgeable about Health Subject/Topic Patient will demonstrate the desired outcomes. Outcome: Outcome (s) achieved Date Met: 05/25/14 05/25/14 0802 Health Knowledge, Opportunity for Enhanced (Adult, NICU, [place], Obstetrics, Pediatric) Knowledgeable about Health Subject/Topic achieves [...] bedside;lighting adjusted for task/safety;low bed;environmental modification 05/25/14 0575 Musculoskeletal Interventions Activity/Level of Assistance -- Self-Care [...] Outcome: Ongoing (Interventions Implemented as Appropriate) 05/24/14 4363 Plan of Care Review Plan of Care [...] performed by YAS OLIVER at [facility] OR ??? Removal deep implant 08/15/2010 REMOVAL IMPLANT, DEEP, BRUNO performed by YAS OLIVER at [facility] OR ??? Osteotomy femur shaft/supracondy 08/15/2010 ??OSTEOTOMY, FEMUR SHAFT OR SUPRACONDYLAR W/O FIXATION performed by YAS OLIVER at [facility] OR ??? Remove spinal canal catheter N/A 05/11/2014 REMOVAL OF INTRATHECAL OR EPIDURAL CATHETER performed by Jamaal Samuel MD at [facility] OR ??? Remove infusn device/pump N/A 05/11/2014 REMOVAL OF SPINE INFUSION PUMP performed by Jamaal Samuel MD at [facility] OR ? ? I&d, post spine, lumb/sacr/lumbosac N/A 05/20/2014 @I & D, OPEN, DEEP ABSCESS, LUMBAR, SACRAL, LUMBOSACRAL performed by Freddy Burciaga MD at [facility] OR ??? Repr, dural/csf leak, not req laminectomy N/A 05/20/2014 @REPAIR DURAL\CSF LEAK,NOT REQUIRING LAMINECTOMY performed by Freddy Burciaga MD at [facility] OR Social and Developmental History: Patient lives with her family in a single level home in [place], [place]. Pt's mother reports that their home [...] has an older sister who lives in [place] and 3 younger brothers. She likes to [...] RN and mom assist. Feeding: per mom: NANWALEK assist for use of utensils; not observed [...] to d/c home with support and continued PT/OT/HYDRAULIC SPINNER/VNA services. Spoke with CRC about consultfor new [...] you for this occupational therapy consult. Pager: [phone] Mary Joe OT 05/24/2014 Occupational Therapy Rehabilitation [...] performed by YAS OLIVER at [facility] OR ??? Removal deep implant 08/15/2010 REMOVAL IMPLANT, DEEP, BRUNO performed by YAS OLIVER at [facility] OR ??? Osteotomy femur shaft/supracondy 08/15/2010 ??OSTEOTOMY, FEMUR SHAFT OR SUPRACONDYLAR W/O FIXATION performed by YAS OLIVER at [facility] OR ??? Remove spinal canal catheter N/A 05/11/2014 REMOVAL OF INTRATHECAL OR EPIDURAL CATHETER performed by Jamaal Samuel MD at [facility] OR ??? Remove infusn device/pump N/A 05/11/2014 REMOVAL OF SPINE INFUSION PUMP performed by Jamaal Samuel MD at [facility] OR ? ? I&d, post spine, lumb/sacr/lumbosac N/A 05/20/2014 @I & D, OPEN, DEEP ABSCESS, LUMBAR, SACRAL, LUMBOSACRAL performed by Freddy Burciaga MD at [facility] OR ??? Repr, dural/csf leak, not req laminectomy N/A 05/20/2014 @REPAIR DURAL\CSF LEAK,NOT REQUIRING LAMINECTOMY performed by Freddy Burciaga MD at [facility] MAIN OR Social History: Patient lives with her family in a single story home in [place], [place]. Pt's mother reports that there is no stair requirement, and that she has all necessary equipment. Stairs: 0 without a rail to enter Baseline Mobility: Completely dependent for all care, home nursing VNA services 3x/week, school-based PT/OT/HYDRAULIC SPINNER, pt due to receive a communication device [...] appropriate and joins in counting with this underwriter solicitation director while stretching Objective: Pt seen for evaluation [...] minutes Natividad Esqueda PT, DPT 05/24/2014 Pager: [phone] Physical Therapy Inpatient Rehabilitation Department * Plan [...] based on it's ability to penetrate the WAX PATTERN ASSEMBLER. We need todiscuss whether to pursue an [...] to 40 mEq. One dose of IV [id number] mEq administered per orders. Re-check of K [...] placement of baclofen pump in 2007 in [place]. Due to lack of efficacy the baclofen [...] and Lipase were normal. Per her daycare child caregiver, may be related to administration of oxycodone as this has been issue in the past. Cannotexclude component of baclofen withdrawal, but less likely. No current concern for acute WAX PATTERN ASSEMBLER process. - Serial exams. Ensure daily BMs [...] although it may not have the best WAX PATTERN ASSEMBLER penetration unless meninges are actually inflamed. - [...] fluid only. MD called for antiemetic and OR tylenol. Zofran given when order receivedand med [...] PREVENTION: Assistance: Full assist, mom at bedside. nutrition services aide will be coming in today to [...] Burciaga MD - 05/21/2014 11:53 AM EST [facility] Operative Note Patient Name: Tana Shelton : [id number] MR#: [id number] Case Date: 05/20/2014 - 05/21/2014 Surgeon: Surgeon(s) [...] FEMORAL HEAD, BILATERAL performed by YAS OLIVER formerly [facility] MAIN OR ??? Apply of hip casts, two legs 08/15/2010 CAST APPLICATION, HIP SPICA, BOTH LEGS performed by YAS OLIVER at [facility] MAIN OR ??? Removal deep implant 08/15/2010 REMOVAL IMPLANT, DEEP, BRUNO performed by YAS OLIVER at [facility] MAIN OR ??? Osteotomy femur shaft/supracondy 08/15/2010 ??OSTEOTOMY, FEMUR SHAFT OR SUPRACONDYLAR W/O FIXATION performed by YAS OLIVER at [facility] MAIN OR ??? Remove spinal canal catheter N/A 05/11/2014 REMOVAL OF INTRATHECAL OR EPIDURAL CATHETER performed by Jamaal Samuel MD at [facility] MAIN OR ??? Remove infusn device/pump N/A 05/11/2014 REMOVAL OF SPINE INFUSION PUMP performed by Jamaal Samuel MD at [facility] MAIN OR No family history on file. [...] mcL Appearance UA Hazy (*) Clear Spec [place] UA 1.026 1.002 - 1.030 Color UA [...] TANA SHELTON Ordered By: Freddy BURCIAGA MR#: [id number] LOC: OR /Sex: 1995 (18 years), Female PROCEDURE: Tissue Culture SOURCE: Back COLLECTED: 05/20/2014 20:20 FREE TEXT SOURCE: Lumbar Wound Culture STARTED: 05/20/2014 22:13 STAINS / PREPARATIONS Gram Stain Report Verified:05/20/2014 22:28 Few White Blood Cells seen No microorganisms seen. TISSUE CULTURE Result Value Range Tissue Culture Value: Patient Name: TANA SHELTON Ordered By: Freddy BURCIAGA MR#: [id number] LOC: OR /Sex: 1995 (18 years), Female [...] PM EST Office Visit [place] [address] Hollie Ambriz MD [facility] DR [place] [address] Pending Results Name Type Priority Associated Diagnoses [...] REQUIRING LAMINECTOMY Routine 05/20/2014 10:22 PM EST ENCAPSULATOR CULTURE Routine 5 10:01 PM EST ANAEROBIC [...] intervals supplied above were not validated at [facility]. Results from pediatric patients should be interpreted [...] the following links into your internet browser. [email or web address] Blood specimen (specimen) 06/02/2014 5:55 AM EST [...] MD HEMATOLOGY ORDERABLE S Performing Organization Address [facility] de Phone Number LINDA BASHIR * High Sensitivity CRP (06/01/2014 12:40 PM EST) Pathologist [facility] C-Reactive Protein High Sensitivity 15.4 mg/L [facility] Comment: Interpretations: 1) For accurate cardiac [...] Burciaga MD CHEMISTRY ORDERABLES Performing Organization Address [facility] Co de Phone Number [...] intervals supplied above were not validated at [facility]. Results from pediatric patients should be interpreted [...] the following links into your internet browser. [email or web address] Blood specimen (specimen) 06/01/2014 12:40 PM EST [...] MD HEMATOLOGY ORDERABLE S Performing Organization Address [facility] Co de Phone Number [...] MD HEMATOLOGY ORDERABLE S Performing Organization Address [facility] Co de Phone Number [...] intervals supplied above were not validated at [facility]. Results from pediatric patients should be interpreted [...] the following links into your internet browser. [email or web address] Blood specimen (specimen) 05/30/2014 6:50 AM EST [...] intervals supplied above were not validated at [facility]. Results from pediatric patients should be interpreted [...] the following links into your internet browser. [email or web address] Blood specimen (specimen) 05/29/2014 7:13 AM EST 05/29/2014 7:13 AM EST Narrative Resulting Agency Comment Spec In Lab S Alek Burciaga MD CHEMISTRY ORDERABLES Performing Organization Address City/[facility] Co de Phone Number [...] MD HEMATOLOGY ORDERABLE S Performing Organization Address [facility] de Phone Number LINDA BASHIR [...] MD HEMATOLOGY ORDERABLE S Performing Organization Address [facility] Co de Phone Number [...] intervals supplied above were not validated at [facility]. Results from pediatric patients should be interpreted [...] the following links into your internet browser. [email or web address]/[facility] Blood specimen (specimen) 05/28/2014 9:00 AM EST [...] HEMATOLOGY ORDERABLE S Performing Organization Address City/[facility]/ZIP Co de Phone Number CERNER MILLENNIUM [...] S Alek Burciaga MD HEMATOLOGY ORDERABLE S [facility] MILLEN[facility]UM * (ABNORMAL) Basic Metabolic Panel (non-fasting) (05/27/2014 5:30 AM EST) [facility] Glucose 81 60 - 199 mg/dL CERNER MILLENNIUM Comment:Diabetes: >=200 mg/d L plus symptoms Blood Urea Nitrogen 4(L) 8 - 18 mg/dL CERNER MILLENNIUM Creatinine 0.21(L) 0.70 - 1.20 mg/dL CERNER MILLENNIUM Comment: Please note that the pediatric reference intervals supplied above were not validated at [facility]. Results from pediatric patients should be interpreted [...] the following links into your internet browser. [email or web address] Blood specimen (specimen) 05/27/2014 5:30 AM EST 05/27/2014 5:39 AM EST Narrative Resulting Agency Comment Spec In Lab Freddy Burciaga MD CHEMISTRY ORDERABLES [facility] * Anaerobic Culture (05/26/2014 5:30 PM EST) Anaerobic Culture ? Patient Name: TANA SHELTON ? Ordered By: Freddy BURCIAGA ? MR#: [id number] ?LOC: ??PA ? /Sex: ??1995 (18 years), [...] ? Ordered By: Freddy BURCIAGA ? MR#: [id number] ?LOC: ??PA ? /Sex: ??1995 (18 years), [...] ? Patient: CRISTO SHELTONLIE S ? MR#: [id number] ? S=Susceptible ??I=Intermediate ??R=Resistant ??NA=Not Applicable ? DDS=Dose dependent-suscept ible ??NS=Non-suscepti ble ? [facility] Structure of back of trunk (body structure) 05/26/2014 5:30 PM EST 05/26/2014 5:41 PM EST Comment:LUMBAR Narrative Resulting Agency Comment Spec In Lab Freddy Burciaga MD MICROBIOLOGY - GENER AL ORDERABLES [facility] * Anaerobic Culture (05/26/2014 5:30 PM EST) Anaerobic Culture ? Patient Name: TANA SHELTON ? Ordered By: Freddy BURCIAGA ? MR#: [id number] ?LOC: ??[place] ? /Sex: ??1995 (18 years), [...] ? Ordered By: Freddy BURCIAGA ? MR#: [id number] ?LOC: ??[place] ? /Sex: ??1995 (18 years), [...] plates. ? Patient: TANA SHELTON ? MR#: [id number] ? SUSCEPTIBILITY RESULTS ? Coagulase negative Staphylococcus [...] (1) ? Gentamicin is not appropriate for [place]-therapy. ? (2) ? Penicillin resistant, Nafcillin susceptible [...] - GENER AL ORDERABLES Performing Organization Address City/State/[facility] Co de Phone Number [facility] * Anaerobic Culture (05/26/2014 5:30 PM EST) Anaerobic Culture ? Patient Name: TANA SHELTON ? Ordered By: Freddy BURCIAGA ? MR#: [id number] ?LOC: ??[place] ? /Sex: ??1995 (18 years), [...] Burciaga MD MICROBIOLOGY - GENER AL ORDERABLES [facility] * Tissue culture (05/26/2014 5:30 PM EST) Tissue Culture ? Patient Name: TANA SHELTON ? Ordered By: Freddy BURCIAGA ? MR#: [id number] ?LOC: ??[place] ? /Sex: ??1995 (18 years), [...] Screen Interp Negative CERNER MILLENNIUM Expires at [phone] on: [id number] CERNER MILLENNIUM Blood specimen (specimen) [...] prior fragment retrieval. S Alek Burciaga MD [facility] CT ORDERABLES * CT lumbar spine reconstruction [...] 4:15 AM EST) [facility] Glucose 88 60 - 199 mg/dL CERNER MILLENNIUM Comment:Diabetes: >=200 mg/d L plus symptoms Blood Urea Nitrogen 6(L) 8 - 18 mg/dL [facility]ILL[facility]NI[facility] Creatinine 0.28(L) 0.70 - 1.20 mg/dL [facility]NI[facility] Comment: Please note that the pediatric reference intervals supplied above were not validated at [facility]. Results from pediatric patients should be interpreted [...] the following links into your internet browser. [email or web address] Blood specimen (specimen) 05/26/2014 4:15 AM EST 05/26/2014 4:35 AM EST Narrative Resulting Agency Comment Spec In Lab S Alek Burciaga MD CHEMISTRY ORDERABLES [facility]DA [facility] * Place PICC Line: Contact Vascular Access Page [phone] (05/25/2014 4:01 PM EST) Narrative [place] [...] to the planned procedure. Hand Hygiene: The collections rep did perform hand hygiene prior to line insertion. Catheter type: PICC Lot number: [id number] Procedure Technique: Skin was prepped with chlorhexidine. [...] focal. 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 [employer] Crew[employer] coronal image 8 of series 8 demonstrates [...] inf,focal. COMPARISON: Scoliosis radiographs from 12/16/2011 FINDINGS: Field Artillery Crewmember views demonstrate severe rightward scoliotic deformity centered [...] abnormalities. No grosscollections in the cervical spine. [employer] Artillery Crewmember coronal image 8 of series 8 demonstrates [...] attending Authorizing Provider Result Bala Burciaga MD [facility] MRI ORDERABLES * MRI thoracic spine without contrast (05/25/2014 1:26 PM EST) Anatomical Region Laterality Modality T-spine Magnetic Resonan ce 05/25/2014 1:26 PM EST Narrative 05/25/2014 4:10 PM EST See accession #[id number] for dictation of this study. This report was reviewed by Andrade Rebolledo MD at 05/25/2014 4:05 PM Film and interpretation reviewed by the attending Procedure Note Andrade Roth MD - 05/25/2014 See accession #[id number] for dictation of this study. This report was reviewed by Andrade Rebolledo MD at 05/25/2014 4:05 PM Film and interpretation reviewed by the attending Alek Sinha EDITOR PUBLICATION[employer] IMG MRI ORDERABLES * Differential, Automated (05/25/2014 [...] 5:00 AM EST) [facility] Glucose 87 60 - 199 mg/dL CERNER MILLENNIUM Comment:Diabetes: >=200 mg/d L plus symptoms Blood Urea Nitrogen 6(L) 8 - 18 mg/dL [facility] MILLENNI[facility] Creatinine 0.27(L) 0.70 - 1.20 mg/dL [facility]ER MILLENNIUM Comment: Please note that the pediatric reference intervals supplied above were not validated at [facility]. Results from pediatric patients should be interpreted [...] the following links into your internet browser. [email or web address] Blood specimen (specimen) 05/25/2014 5:00 AM EST [...] MD HEMATOLOGY ORDERABLE S Performing Organization Address [facility]/ZIP Co de Phone Number LINDA TOMASENNIUM [...] Metabolic Panel (non-fasting) (05/24/2014 12:42 PM EST) [facility] Glucose 78 60 - 199 mg/dL CERNER MILLENNIUM Comment:Diabetes: >=200 mg/d L plus symptoms Blood Urea Nitrogen 4(L) 8 - 18 mg/dL CERNER MILLENNIUM Comment:result rechecked-f Creatinine 0.39(L) 0.70 - 1.20 mg/dL [facility]ER MILLENNIUM Comment: Please note that the pediatric reference intervals supplied above were not validated at [facility]. Results from pediatric patients should be interpreted [...] the following links into your internet browser. [email or web address]/DHnkdep [email or web address] Blood specimen (specimen) 05/24/2014 12:42 PM EST 05/24/2014 12:42 PM EST Narrative Resulting Agency Comment Spec In Lab S Alek Burciaga MD CHEMISTRY ORDERABLES [facility] * Vancomycin, trough (05/24/2014 12:29 PM [...] Burciaga MD CHEMISTRY ORDERABLES Performing Organization Address [facility] de Phone Number CERALIN TOMASENNIUM [...] Burciaga MD CHEMISTRY ORDERABLES Performing Organization Address [facility] Co de Phone Number [...] Smith MD CHEMISTRY ORDERABLES Performing Organization Address [facility]/ZIP Co de Phone Number [facility] MILLENNIUM * Magnesium (05/22/2014 12:45 PM EST) [...] Smith MD CHEMISTRY ORDERABLES Performing Organization Address [facility] Co de Phone Number CERNER THOMENNIUM * Amylase (05/22/2014 12:45 PM EST) Amylase 89 28 - 100 unit/L [facility]ERNER MILLENNIUM Blood specimen (specimen) 05/22/2014 12:45 PM EST 05/22/2014 1:03 PM EST Narrative Resulting Agency Comment Spec In Lab Lucho Smith MD CHEMISTRY ORDERABLES Performing Organization Address [facility] de Phone Number CERNER MILLENNIUM * (ABNORMAL) Comprehensive metabolic panel (non-fasting) (05/22/2014 12:45 PM EST) Glucose 81 60 - 199 mg/dL CERNER MILLENNIUM Comment:Diabetes: >=200 mg/d L plus symptoms Blood Urea Nitrogen 2(L) 8 - 18 mg/dL [facility] MILLENNIUM Creatinine 0.31(L) 0.70 - 1.20 mg/dL CERNER MILLENNIUM Comment: Please note that the pediatric reference intervals supplied above were not validated at [facility]. Results from pediatric patients should be interpreted [...] the following links into your internet browser. [email or web address] Blood specimen (specimen) 05/22/2014 12:45 PM EST 05/22/2014 1:03 PM EST Narrative Resulting Agency Comment Spec In Lab Lucho Smith MD CHEMISTRY ORDERABLES [facility] THOM[facility] * Differential, Automated (05/22/2014 6:10 AM [...] MD HEMATOLOGY ORDERABLE S Performing Organization Address [facility] Co de Phone Number [...] Burciaga MD CHEMISTRY ORDERABLES Performing Organization Address [facility] de Phone Number LINDA BASHIR * (ABNORMAL) Basic Metabolic Panel (non-fasting) (05/22/2014 6:10 AM EST) Glucose 86 60 - 199 mg/dL [facility] MILLENNIUM Comment:Diabetes: >=200 mg/d L plus symptoms Blood Urea Nitrogen 3(L) 8 - 18 mg/dL [facility] Creatinine 0.27(L) 0.70 - 1.20 mg/dL [facility] Comment: Please note that the pediatric reference intervals supplied above were not validated at [facility]. Results from pediatric patients should be interpreted in conjunction to the patient's age, height and muscle mass. Sodium 141 135 - 145 mmol/L [facility] MILLENNIUM Potassium 2.9(Criti dean) 3.5 - [...] the following links into your internet browser. [email or web address] Blood specimen (specimen) 05/22/2014 6:10 AM EST [...] intervals supplied above were not validated at [facility]. Results from pediatric patients should be interpreted [...] the following links into your internet browser. [email or web address] Blood specimen (specimen) 05/21/2014 4:23 AM EST 05/21/2014 4:38 AM EST Narrative Resulting Agency Comment Spec In Lab Freddy Burciaga MD CHEMISTRY ORDERABLES [facility] * Park Warden Culture (05/20/2014 10:01 PM EST) Park Warden Culture ? Patient Name: TANA SHELTON ? Ordered By: Freddy BURCIAGA ? MR#: [id number] ?LOC: ??[place] ? /Sex: ??1995 (18 years), ? Female ? PROCEDURE: Park Warden Culture ?SOURCE: Other ? COLLECTED: 05/20/2014 22:01 [...] ? Ordered By: Freddy BURCIAGA ? MR#: [id number] ?LOC: ??[place] ? /Sex: ??1995 (18 years), [...] ? Ordered By: Freddy BURCIAGA ? MR#: [id number] ?LOC: ??[place] ? /Sex: ??1995 (18 years), [...] ? Patient: TANA SHELTON S ? MR#: [id number] ? S=Susceptible ??I=Intermediate ??R=Resistant ??NA=Not Applicable ? DDS=Dose dependent-suscept ible ??NS=Non-suscepti ble ? [facility] M[facility] Structure of back of trunk (body structure) 05/20/2014 9:25 PM EST 05/20/2014 10:12 PM EST Comment:LUMBAR WOUND CULTURE #2 Narrative Resulting Agency Comment Spec In Lab S Alek Burciaga MD MICROBIOLOGY - GENER AL ORDERABLES Performing Organization Address [facility] de Phone Number LINDA BASHIR * Anaerobic Culture (05/20/2014 8:20 PM EST) Anaerobic Culture ? Patient Name: TANA SHELTON ? Ordered By: Freddy BURCIAGA ? MR#: [id number] ?LOC: ??[place] ? /Sex: ??1995 (18 years), [...] - GENER AL ORDERABLES Performing Organization Address [facility]/State/ZIP Co de Phone Number LINDA BASHIR * Tissue culture (05/20/2014 8:20 PM EST) Tissue Culture ? Patient Name: TANA SHELTON ? Ordered By: Freddy BURCIAGA ? MR#: [id number] ?LOC: ??PA ? /Sex: ??1995 (18 years), [...] Name: TANA SHELTON ? Ordered By: BELKIS LUOIE ? MR#: [id number] ?LOC: ??[place] ? /Sex: ??1995 (18 years), ? Female ? PROCEDURE: Urine Culture ?SOURCE: U [facility] ? COLLECTED: 05/20/2014 18:46 ? STARTED: 05/20/2014 [...] - GENER AL ORDERABLES Performing Organization Address City/[facility]/ZIP Co de Phone Number LINDA KEMPIUM [...] Urine Dipstick Hazy(A) Clear CERNER MILLENNIUM Specific [place] Urine Automated 1.026 1.002 - 1.030 CERNER [...] Louie MD URINE ORDERABLES Performing Organization Address City/[facility]/ZIP Co de Phone Number LINDA KEMPIUM * L-Lactate2 Whole Blood (05/20/2014 6:17 PM EST) Lactate WB 1.6 0.5 - 2.2 mmol/L LINDA BASHIR Blood specimen (specimen) 05/20/2014 6:17 PM EST 05/20/2014 6:17 PM EST Belkis Louie MD CHEMISTRY ORDERABLES [facility] * Blood culture (05/20/2014 6:00 PM EST) Blood Culture ? Patient Name: TANA SHELTON ? Ordered By: BELKIS LOUIE ? MR#: [id number] ?LOC: ??[place] ? /Sex: ??1995 (18 years), [...] Louie MD CHEMISTRY ORDERABLES Performing Organization Address City/[facility]/ZIP Co de Phone Number CERALIN TOMASENNIUM [...] Comment Spec In Lab Belksi Louie MD HEMATOLOGY ORDERABLE S [facility] * Blood culture (05/20/2014 5:15 PM EST) Blood Culture ? Patient Name: TANA SHELTON ? Ordered By: BELKIS LOUIE ? MR#: [id number] ?LOC: ??[place] ? /Sex: ??1995 (18 years), [...] ? No growth at 4 days. ? [facility] Blood specimen (specimen) STRUCTURE OF LEFT HAND / Unknown 05/20/2014 5:15 PM EST 05/20/2014 7:17 PM EST Comment:HOLD UNTIL MD HULL Narrative Resulting Agency Comment Spec In Lab Belkis Louie MD MICROBIOLOGY - BLOOD ORDERABLES [facility] * Glucose, random (05/20/2014 5:15 PM EST) Glucose 81 60 - 199 mg/dL [facility] Comment:Diabetes: >=200 mg/d L plus symptoms Blood specimen (specimen) 05/20/2014 5:15 PM EST 05/20/2014 5:31 PM EST Narrative Resulting Agency Comment Spec In Lab Belkis Louie MD CHEMISTRY ORDERABLES Performing Organization Address [facility] de Phone Number [facility] * (ABNORMAL) Creatinine (05/20/2014 5:15 PM EST) Creatinine 0.37(L) 0.70 - 1.20 mg/dL [facility] Comment: Please note that the pediatric reference intervals supplied above were not validated at [facility]. Results from pediatric patients should be interpreted in conjunction to the patient's age, height and muscle mass. Est Glomerular Filtration Rate >60 >=60 [facility] Comment: This estimated GFR (eGFR) value [...] the following links into your internet browser. [email or web address] Blood specimen (specimen) 05/20/2014 5:15 PM EST 05/20/2014 5:31 PM EST Narrative Resulting Agency Comment Spec In Lab Belkis Louie MD CHEMISTRY ORDERABLES Performing Organization Address [facility] de Phone Number [facility] * BUN (05/20/2014 5:15 PM EST) Blood Urea Nitrogen 9 8 - 18 mg/dL [facility] Blood specimen (specimen) 05/20/2014 5:15 PM EST 05/20/2014 5:31 PM EST Narrative Resulting Agency Comment Spec In Lab Belkis Louie MD CHEMISTRY ORDERABLES Performing Organization Address [facility] Co de Phone Number [...] Louie MD CHEMISTRY ORDERABLES Performing Organization Address [facility] Co de Phone Number LINDA BASHRI documented in this encounter Visit Diagnoses Not [...] Nely Boss, Indication for (Active or Suspected): 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
--- OUTSIDE RECORDS SUMMARY | 2024-01-12 21:21 | XMS_ITS | Encounter Summary ---
Author Organization [facility] Address [facility] [place] [address] Care Team Providers Care Teletypewriter Installer Name Role Phone Lorna Bal APRN Primary Care Provider [phone] Encounter Details Date Type Department Care Team (Late st Contact Info) Description 12/21/2013 Interpretation Only Radiology Library at [facility] [place] [address] Chuckie Mayfield MD [facility] [address] Social History Tobacco Use Types Packs/Day Years [...] PM EST Office [place] [address] Hollie Ambriz MD [facility] [place] [address] documented as of this encounter Procedures Procedure Name Priority Date/Time Associated Diagnosis Comments FILM LIBRARY STORAGE ONLY DX UPPER EXTREMITY Routine 12/21/2013 1:30 PM EDT documented in this encounter Results * Film Library- Storage Only DX Upper Extremity (12/21/2013 1:30 PM EDT) 08/10/2023 3:14 PM EDT Narrative RAD - 08/10/2023 3:14 PM EDT This exam is auto-finalizing. It's purpose is for storage only. Chuckie Mayfield MD IMG FILM LIBRARY ORD ERABLES [place], [place] documented in this encounter Visit Diagnoses [...] documented as of this encounter Care Teams Teletypewriter Installer Relationship Specialty Start Date End Date Lorna Bal APRN [address] [place] [address] PCP - General Family Medicine 05/27/18 documented as of this encounter
--- OUTSIDE RECORDS SUMMARY | 2024-01-12 21:21 | XMS_ITS | Encounter Summary ---
Author Organization [facility] [place] [address] Care Team Providers Care Movie Writer Name Role Phone Naina Lindsey MD Primary Care Provider [phone] Reason for Visit * Reason Comments Pain Management Encounter Details Date Type Department Care Team (Latest Contact Info) Description 04/25/2014 4:15 PM EST Procedure [place] [id number] Donnell Dotson MD [facility] [place] [address] Spasticity; Presence of intrathecal baclofen pump; Cerebral [...] PM EST Office [place] [address] Hollie Ambriz MD [facility] [place] [address] documented as of this encounter Procedures Procedure [...] unspecified documented in this encounter Care Teams Movie Writer Relationship Specialty Start Date End Date Naina Lindsey MD [address] [place] [address] PCP - General 03/19/10 08/25/16 documented as of this encounter
--- OUTSIDE RECORDS SUMMARY | 2024-01-12 21:21 | XMS_ITS | Encounter Summary ---
[place] [address] Care Team Providers Care Lap Regulator Name Role Phone Naina Lindsey MD Primary Care Provider [phone] Reason for Visit * Reason Comments Pain Encounter Details Date Type Department Care Team (Latest Contact Info) Description 01/25/2014 4:00 PM EDT Procedure [place] [phone] [facility] [place] [address] Traumatic brain injury, subsequent encounter (Primary Dx) [...] Pump Reprogramming Only Procedure Note Tana Cavazos [id number] Date of Refill: January 25, 2014 Primary Dental Surgery Doctor: KAREN EARLY DO Outside Sales Advertising Executive: Donnell Dotson MD Reason for Reprogramming: NA 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 Prior to this surgery the [...] available to conference the patient's physicians at [facility] as this decision is made. The mother will contact the orthopedic surgeon who performed the procedure to get his input as to whether he feels the baclofen has been helping. She will also request referral to a pediatric physiatry doctor at [facility] and will contact us back with [...] EST Office Visit [place] [address] Hollie Ambriz MD [facility] [place] [address] documented as of this encounter Visit Diagnoses Diagnosis Traumatic brain injury, subsequent encounter- Primary documented in this encounter Care Teams Lap Regulator Relationship Specialty Start Date End Date Naina Lindsey MD [address] [place] [address] [place] [address] PCP - General 03/19/10 08/25/16 documented as of this encounter
--- OUTSIDE RECORDS SUMMARY | 2024-01-12 21:21 | XMS_ITS | Encounter Summary ---
Author Organization [facility] [place] [address] Care Team Providers Care Assembler Tester Name Role Phone Naina Lindsey MD Primary Care Provider Encounter Details Date Type Department Care Team (Late st Contact Info) Description 03/03/2014 External Results [place] [address] Donnell Dotson MD [facility] [place] [address] Social History Tobacco Use Types [...] PM EST Office [place] [address] Hollie Ambriz MD [facility] [place] [address] documented as of this encounter Procedures Procedure Name Priority Date/Time Associated Diagnosis Comments IMPLANTABLE DEVICES SCAN Routine 02/28/2014 8:00 AM EST IMPLANTABLE DEVICES SCAN Routine 02/15/2014 8:41 AM EDT IMPLANTABLE DEVICES SCAN Routine 02/09/2014 8:42 AM EDT IMPLANTABLE DEVICES SCAN Routine 01/25/2014 9:19 AM EDT documented in this encounter Visit Diagnoses Not on filedocumented in this encounter Care Teams Assembler Tester Relationship Specialty Start Date End Date Naina Lindsey MD [address] [place] [address] PCP - General 03/19/10 08/25/16 documented as of this encounter
--- OUTSIDE RECORDS SUMMARY | 2024-01-12 21:21 | XMS_ITS | Encounter Summary ---
[place] [address] Care Team Providers Care Janitorial Maintenance Worker Name Role Phone Naina Lindsey MD Primary Care Provider [phone] Encounter Details Date Type Department Care Team (Late st Contact Info) Description 08/01/2012 Notes [place] [phone] Chelsea Alva RN Social History Tobacco Use [...] PM EST Office [place] [address] Hollie Ambriz MD [facility] [place] [address] documented as of this encounter Visit Diagnoses Not on filedocumented in this encounter Care Teams Janitorial Maintenance Worker Relationship Specialty Start Date End Date Naina Lindsey MD [address] [place] [address] [place] [address] PCP - General 03/19/10 08/25/16 documented as of this encounter
--- OUTSIDE RECORDS SUMMARY | 2024-01-12 21:21 | XMS_ITS | Encounter Summary ---
Author Organization [facility] [place] [address] Care Team Providers Care Official Court Interpreter Name Role Phone Naina Lindsey MD Primary Care Provider [phone] Encounter Details Date Type Department Care Team (Latest Contact Info) Description 05/03/2014 4:15 PM EST Procedure [place] [phone] Donnell Dotson MD [facility] [place] [address] Presence of intrathecal baclofen pump Discharge Disposition: [...] Jamaal Samuel relatively soon. Donnell Dotson MD Aviation Medicine Specialist of Anesthesiology [facility] documented in this encounter Plan of Treatment Upcoming Encounters Date Type Department Care Team (Late st Contact Info) Description 06/02/2024 12:30 PM EST Office Visit [place] [address] Hollie Ambriz MD [facility] [place] [address] documented as of this encounter Visit Diagnoses Diagnosis Presence of intrathecal baclofen pump documented in this encounter Care Teams Official Court Interpreter Relationship Specialty Start Date End Date Naina Lindsey MD [address] [place] [address] [place] [address] PCP - General 03/19/10 08/25/16 documented as of this encounter
--- OUTSIDE RECORDS SUMMARY | 2024-01-12 21:21 | XMS_ITS | Encounter Summary ---
Author Organization [facility] [place] [address] Care Team Providers Care Control Panel Operator Crude Unit Name Role Phone Naina Lindsey MD Primary Care Provider [phone] Encounter Details Date Type Department Care Team (Late st Contact Info) Description 05/11/2014 7:31 AM EST Anesthesia Event [place] [phone] Danielle Kwan MD [facility] [place] [address] Anesthesia Record Procedure Summary Procedure Name Responsible [...] 0731; metacarpal vein right (top of hand); penv-pux-zophsw catheter system; 22 gauge; [place]; 05/12/14; 141605/11/14 [...] LEGS performed by BARRERA OLIVER at [facility] MAIN OR ??? Removal deep implant 08/15/2010 REMOVAL IMPLANT, DEEP, BRUNO performed by BARRERA OLIVER at [facility] MAIN OR ??? Osteotomy femur shaft/supracondy 08/15/2010 ??OSTEOTOMY, FEMUR SHAFT OR SUPRACONDYLAR W/O FIXATION performed by BARRERA OLIVER at [facility] MAIN OR History Substance Use [...] full Cardiovascular Assessment: Pulmonary Assessment: [facility] An[facility] Plan: ASA 2 general, [...] and mother whom consented to blood products. [facility]. Assessment: documented in this encounter Plan of Treatment Upcoming Encounters Date Type Department Care Team (Late st Contact Info) Description 06/02/2024 12:30 PM EST Office [facility] [place] [phone] Hollie Ambrzi MD [facility] INFECTIOUS [place] [address] documented as of this encounter Visit Diagnoses [...] mg documented in this encounter Care Teams Control Panel Operator Crude Unit Relationship Specialty Start Date End Date Naina Lindsey MD [address] [place] [place] [address] PCP - General 03/19/10 08/25/16 documented as of this encounter
--- OUTSIDE RECORDS SUMMARY | 2024-01-12 21:21 | XMS_ITS | Encounter Summary ---
Author Organization [facility] [place] [address] Care Team Providers Care Warehouse Hand Name Role Phone Naina Lindsey MD Primary Care Provider [phone] Encounter Details Date Type Department Care Team (Late st Contact Info) Description 12/21/2013 1:40 PM EDT Ancillary Procedure Radiology Library at [facility] [place] [phone] Chuckie Mayfield MD [facility] OR[place]OP[place] [address] Social History Tobacco Use Types Packs/Day Years [...] PM EST Office Visit Infectious Disease at [facility] [place] [phone] Hollie Ambriz MD [facility] INFECTIOUS [place] [address] documented as of this encounter Procedures Procedure Name Priority Date/Time Associated Diagnosis Comments FILM LIBRARY STORAGE ONLY DX WRIST Routine 12/21/2013 1:40 PM EDT documented in this encounter Results * Film Library- Storage Only DX Wrist (12/21/2013 1:40 PM EDT) 08/10/2023 3:14 PM EDT Narrative [facility] - 08/10/2023 3:14 PM EDT This exam is auto-finalizing. It's purpose is for storage only. Chuckie Mayfield MD IMG FILM LIBRARY ORD ERABLES [place], [place] documented in this encounter Visit Diagnoses Not on filedocumented in this encounter Care Teams Warehouse Hand Relationship Specialty Start Date End Date Naina Lindsey [place] [address] PCP - General 03/19/10 08/25/16 documented as of this encounter
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
--- OUTSIDE RECORDS SUMMARY | 2024-01-12 21:21 | XMS_ITS | Encounter Summary ---
Author Organization [facility] [address] Care Team Providers Care Wagon Drill Operator Name Role Phone Naina Lindsey MD Primary Care Provider [phone] Reason for Visit * Reason Comments Pain Encounter Details Date Type Department Care Team (Latest Contact Info) Description 02/15/2014 4:45 PM EDT Procedure [place] [phone] Donnell Dotson MD [facility] [place] [address] Spasticity; Abnormal involuntary movements(101.0) Discharge Disposition: Home Social History Tobacco Use [...] PM EST Office [place] [address] Hollie Ambriz MD [facility] DR [place] [address] documented as of this encounter Procedures Procedure [...] movements documented in this encounter Care Teams Wagon Drill Operator Relationship Specialty Start Date End Date Naina Lindsey MD [address] [place] [address] PCP - General 03/19/10 08/25/16 documented as of this encounter
--- OUTSIDE RECORDS SUMMARY | 2024-01-12 21:21 | XMS_ITS | Encounter Summary ---
Author Organization [facility] [place] [address] Care Team Providers Care Nail Making Machine Tender Name Role Phone Naina Lindsey MD Primary Care Provider [phone] Reason for Visit * Reason Comments Post-op Problem Encounter Details Date Type Department Care Team (Late st Contact Info) Description 05/20/2014 7:24 PM EST - 05/20/2014 9:57 PM EST Surgery [place] [address] Freddy Burciaga MD [facility] [place] [address] @I & D, OPEN, DEEP ABSCESS, LUMBAR, [...] Routine, Hospital Performed Vendor / contact information: [facility] Patient location post discharge: home Service requested: IV abx Start date: 05/26/2014 Responsible MD post discharge contact info: WILL Smith (Edit) Referral to Home Health - at DISCHARGE Routine, Clinic Performed Agency name and contact information: [facility] Patient location post discharge: home What services are requested: Registered Nurse, Home Health Aide, Physical Therapy, Occupational Therapy Start date: 05/26/2014 Responsible MD post discharge contact info: PCP PATIENT'S LOCATION: Tana Shelton [address] [place] [phone] (home) In discussion with the attending physician, it is certified that this patient is under their care and that they, or a Nurse Practitioner,Clinical Nurse specialist or Physician Night Coordinator who is working directly with them, had [...] Continue with therapies OT: Continue with therapies EDITOR DICTIONARY: Continue support HOME HEALTH CARE AGENCY: [facility]. PHONE: [phone] FAX: [phone] Start of care: 05/26/14 Please note that any additional orders needs or changes will need to be obtained from this patient's PCP: MD Coby BRAGG DR / [facility] [id number] All VNA agencies which cover the area of patient's residence have been reviewed, either verbally or in writing, and patient/family have chosen the home health care agency noted Emergency contact: After hours and weekends, call the [facility] fulling machine operator at and ask them to page the neurosurgery resident school occupational therapist. documented in this encounter Medications at Time [...] 0.9% 50 mL Mini-Bag Plus 2 g TwxliggqptjM2T ??? baclofen 10 mg Oral Nightly ??? levonorgestrel-ethinyl estradiol 1 tablet Oral Daily ??? polyethylene glycol 17 g Oral Daily ??? sodium chloride 0.9 % 5 mL Intravenous BID ??? diaZEPam 5 mg Oral BID Continuous Infusions: ??? sodium chloride 0.9% with potassium chloride 20 mEq 50 mL/hr (06/01/14 4765) PRN Meds:acetaminophen OR acetaminophen, flu vaccine (36 [...] elevated HR this am S: Kenneth Rocco. [facility], [id number] singing ABCs and counting along with stretches [...] pt to d/chome with support and continued PT/OT/OYSTER FISHERMAN/VNA services. Staff communication/Mobility Recommendations: Pt. Would benefit [...] timed interventions: 30 minutes for TherEx-F Pager: [phone] Mary Joe, OT Occupational Therapy Rehabilitation Department * Isra Perez RN - 06/01/2014 2:43 PM EST Patient Name: Tana Shelton Patient Age: 18 y.o. Birthdate: 1995 Admit date: 05/20/2014 Attending Physician: Jamaal Samuel MD OFFICE OF CARE MANAGEMENT Farhana Perez RN Pager: [phone] CLINICAL BOTTOM STEEP TENDER PROGRESS NOTE e-DH reviewed. Report received from DEMI Sanchez. Patient continues to require acute inpatient care for the treatment of infection. Patient remains on triple abx while awaiting final cultures. [facility] and [facility] have been referred to for discharge. Met with patient's mother at bedside. Mom had multiple questions the other day regarding equipment for home. Mattress for hospital bed was ordered and delivered to home from [facility]. Tomasa Sling was ordered and is to be delivered by [facility] when it ships to [facility] warehouse. TLSO brace to be fitted by [employer]. Mom also inquired about a new motorized wheelchair. Called [facility] in [place] to see if patient would qualify, left message with Oliver- the rehab therapist for [facility]. Patient will need [...] 0.9% 50 mL Mini-Bag Plus 2 g WhuoeqwyhviQ4C ??? baclofen 10 mg Oral Nightly ??? [...] has recovered and I can review the [facility] records and films * Natividad [...] family in a single story home in [place], [place]. Pt's mother reports that there is no stair requirement, and that she has all necessary equipment. Stairs: 0 without a rail to enter Baseline Mobility: Completely dependent for all care, home nursing VNA services 3x/week, school-based PT/OT/OYSTER FISHERMAN, pt due to receive a communication device [...] than in previous treatment session, counting withthis quality analyst/technical writer during stretching Objective: Patient seen for [...] internal rotators, adductors ?? Pt helped this quality analyst/technical writer with opposite UE when performing stretching [...] session, playing with toys, playfully tricking this quality analyst/technical writer when counting during passive stretching, and [...] exercise Natividad Esqueda PT, DPT 05/31/2014 Pager: [phone] Physical Therapy Inpatient Rehabilitation Department * Nathalie [...] OF CARE MANAGEMENT Farhana Perez RN Pager: [phone] CLINICAL BOTTOM STEEP TENDER PROGRESS NOTE e-DH reviewed. Report received from DEMI Sanchez. Patient continues to require acute inpatient care for the treatment of infection. Patient is on triple abx. Patient needs a new mattress for her hospital bed at home. Patient's mother would like order placed with [employer]. Order pended and booking sent via [employer] Plan: CRC will continue to follow for [...] pt to d/chome with support and continued PT/OT/OYSTER FISHERMAN/VNA services. Staff communication/Mobility Recommendations: Pt. Would benefit [...] timed interventions: 45 minutes for TherEx Pager: [phone] Mary Joe OT Occupational Therapy Rehabilitation Department [...] 0.9% 50 mL Mini-Bag Plus 2 g ZvkfibiudvaS6K ??? baclofen 10 mg Oral Nightly ??? [...] OF CARE MANAGEMENT Farhana Perez RN Pager: [phone] CLINICAL BOTTOM STEEP TENDER PROGRESS NOTE e-DH reviewed. Report received from [...] as pt becomes available. Please contact this quality analyst/technical writer with any further questions or concerns. Thank you. Pager: [phone] Mary Joe OTR/L Occupational Therapy Inpatient Rehabilitation [...] family in a single story home in [place], [place]. Pt's mother reports that there is no stair requirement, and that she has all necessary equipment. Stairs: 0 without a rail to enter Baseline Mobility: Completely dependent for all care, home nursing VNA services 3x/week, school-based PT/OT/OYSTER FISHERMAN, pt due to receive a communication device [...] pt very smiley today, counting with this quality analyst/technical writer during stretching, showing off her favorite [...] exercise Natividad Esqueda PT, DPT 05/29/2014 Pager: [phone] Physical Therapy Inpatient Rehabilitation Department * Wai [...] #2, baclofen pump tubing - Pseudomonas aeruginosa, esocbar-sensitive 05/26 Intraoperative Cultures - posterior flank - [...] not hesitate to page us on pager [phone] with further questions or concerns. Patient discussed with Dr. Wai Crabtree. Dimple Messina MD Fellow, Infectious Disease 05/29/2014 ID Staff: Discussed with Dr. Messina. Agree with current regimen. This will be a very difficult regimen at [facility] some further discussion is needed. We [...] 0.9% 50 mL Mini-Bag Plus 2 g UevmzvymcreO3P ??? baclofen 10 mg Oral Nightly ??? [...] 0.9% 50 mL Mini-Bag Plus 2 g ZbfcpwjxatjP3J ??? baclofen 10 mg Oral Nightly ??? [...] CRC received call from EUNICE Hair, from [place], [place] or Asking for status as they will follow her after discharge for IV antibiotic treatment. She will need an OPAT order faxed to above agency when she is ready for discharge as well as administration teaching for home. When ready for discharge, [facility] PHONE: [phone] FAX: [phone] will also need to be updated. Referral had been made by previous CRC. Covering pager #[phone] for pager #[phone]. * Darius Maguire T - 05/27/2014 8:23 [...] 0.9% 50 mL Mini-Bag Plus 2 g DqyqlpvrsauH0S ??? baclofen 10 mg Oral Nightly ??? [...] Dressing clean and dry Wound without fluctuance [address] Assessment/Plan:: 18 y.o. female s/p removal [...] family in a single story home in [place], [place]. Pt's mother reports that there is no stair requirement, and that she has all necessary equipment. Stairs: 0 without a rail to enter Baseline Mobility: Completely dependent for all care, home nursing VNA services 3x/week, school-based PT/OT/OYSTER FISHERMAN, pt due to receive a communication device [...] exercise Natividad Esqueda PT, DPT 05/26/2014 Pager: [phone] Physical Therapy Inpatient Rehabilitation Department * Freddy Burciaga MD - 05/26/2014 6:27 AM EST Neurosurgery - Inpatient Progress Note ID: Tana Shelton, 18 y.o. female s/p removal of retained hardware, washout of infection 05/20 POD 6 Interval Hx: -ALEKSANDRA -Neurologically stable Objective: Medications: Scheduled Meds: ??? cefTAZidime (FORTAZ) 2g vial attach to sodium chloride 0.9% 50 mL Mini-Bag Plus 2 g StwyrxjloprT0C ??? baclofen 10 mg Oral Nightly ??? [...] (05/26) or when appropriate. Please page this quality analyst/technical writer if you have any questions, thank you. Natividad Esqueda PT Pager #[phone] Physical Therapy Inpatient Rehabilitation * Mary Joe, [...] pt to d/chome with support and continued PT/OT/OYSTER FISHERMAN/VNA services. Spoke to CRC this about thoracic [...] timed interventions: 27 minutes for TherEx Pager: [phone] Mary Joe OT Occupational Therapy Rehabilitation Department [...] 0.9% 50 mL Mini-Bag Plus 2 g YtwyhsvqzvhJ0O ??? baclofen 10 mg Oral Nightly ??? [...] of Care Management Farhana Perez RN Pager: [phone] Clinical Liquor Inspector Home IV Antibiotic Therapy Referral Note. Report received from NeuroSurgery Team that patient will require continued home IV antibiotic therapy after discharge from the hospital. Met with patient/family to discuss vendor and visiting nurse choices for home IV antibiotic therapy. Reviewed Home Infusion Vendors and Home Health Agencies that serve patient???s address and accept patient???s insurance. Home Health Agency: Patient requested referral to [facility]. PHONE: [phone] FAX: [phone]. Referrals sent via [employer]charge. Home Infusion Vendor: Patient requested referral to [place], [place] Tel: or Fax: . Referrals sent [...] 0.9% 50 mL Mini-Bag Plus 2 g VvurgkcgbbqX5S ??? baclofen 10 mg Oral Nightly ??? [...] 0.9% 50 mL Mini-Bag Plus 2 g AaxfpndtridJ4J ??? baclofen 10 mg Oral Nightly ??? [...] PM EST Office of Care Management Clinical Liquor Inspector Patient Name: Tana Shelton : 1995, 18 [...] /PRESCRIPTION COVERAGE: [facility] CURRENT HOME/COMMUNITY SERVICES/EQUIPMENT: DME: [facility] bed, wheelchair, tomasa lift, shower chair. Home Health Agency: [facility] PRIMARY CARE PHYSICIAN: NAINA LINDSEY MD [phone] POTENTIAL DISCHARGE NEEDS: Resume vna visits. Mother stated that she has [facility] - RN and Aide currently. Waiting to confirm this and pt needs. Might need home IV antibx. TRANSPORTATION @ D/C: family PLAN: CRC will continue to monitor progress, follow for continuity of care and assist with discharge planning while hospitalized Lesly Jesus RN Office of Care Management Clinical Liquor Inspector Covering for Farhana Chris [phone] Pager [phone] * Yandy Dasilva, PharmD - 05/22/2014 9:46 AM EST Clinical Pharmacist Note-Vanc Tana S Cat [id number] 1995 Tana Barlowrd is a 18 y.o. [...] have. Alternately, during off-hours you may call [phone] to contact a pharmacist. Yandy Dasilva PHARMBenjamin Pager [phone] * Freddy Burciaga MD - 05/22/2014 6:59 [...] Clinically does not seem to be of EDGE POLISHER origin. Continue triple antibiotics. ID consult. Cultures [...] given to Diana RN Peds. Transferred to [place] [address] with transport services, RN + family members. Please call Anurag ICU-RN at [phone] with regards to any questions post transfer. [...] mcL Appearance UA Hazy (*) Clear Spec [place] UA 1.026 1.002 - 1.030 Color UA [...] TANA SHELTON Ordered By: Freddy BURCIAGA MR#: [id number] LOC: OR /Sex: 1995 (18 years), Female PROCEDURE: Tissue Culture SOURCE: Back COLLECTED: 05/20/2014 20:20 FREE TEXT SOURCE: Lumbar Wound Culture STARTED: 05/20/2014 22:13 STAINS / PREPARATIONS Gram Stain Report Verified:05/20/2014 22:28 Few White Blood Cells seen No microorganisms seen. TISSUE CULTURE Result Value Ref Range Tissue Culture Value: Patient Name: TANA SHELTON Ordered By: EVITAFreddy IRENE MR#: [id number] LOC: OR /Sex: 1995 (18 years), Female [...] secretions, lungs CTA, pt tolerating well, Dr. Proras remains at bedside 0000: Pt moaning out, will medicate for pain PRN Mom at bedside to see pt 0030: Pt awake, becoming more alert, beginning to answer yes/no questions, pt appears to be at baseline per Dr. Porras, phase II initiated 0040: Report given to Jenn AUTOMOTIVE CONSULTANT info reviewed/questions answered, pt ready for transfer [...] to the planned procedure. Hand Hygiene: The valve inserter did perform hand hygiene prior to line insertion. Catheter type: PICC Lot number: [id number] Procedure Technique: Skin was prepped with chlorhexidine. [...] warm and was flushed. They called the school occupational therapist neurosurgeon, who advised that they come to [...] performed by YAS OLIVER [facility] MAIN OR ??? Apply of hip [...] stepfather Tobacco exposure:No Day care/year in school: [employer], [place] Physical Exam: Vitals: Patient Vitals for [...] mcL Appearance UA Hazy (*) Clear Spec [place] UA 1.026 1.002 - 1.030 Color UA [...] Size requested: twin bed Vendor Name/Contact information: [place] [facility] New (Edit) Referral for Outpatient Antibiotics Routine, Hospital Performed Vendor / contact information: [facility] Patient location post discharge: home Service requested: IV abx Start date: 05/26/2014 Responsible MD post discharge contact info: PCP New (Edit) Referral to Home Health - at DISCHARGE Routine, Clinic Performed Agency name and contact information: [facility] Patient location post discharge: home What services are requested: Registered Nurse, Home Health Aide, Physical Therapy, Occupational Therapy Start date: 06/06/2014 Responsible MD post discharge contact info: PCP PATIENT'S LOCATION: Tana Shelton [address] [place] [phone] (home) In discussion with the attending physician, it is certified that this patient is under their care and that they, or a Nurse Practitioner,Clinical Nurse specialist or Physician Night Coordinator who is working directly with them, had [...] Continue with therapies OT: Continue with therapies EDITOR DICTIONARY: Continue support HOME HEALTH CARE AGENCY: [facility] PHONE: [phone] FAX: [phone] Start of care: 05/26/14 Please note that any additional orders needs or changes will need to be obtained from this patient's PCP: MD Coby BRAGG DR / [place] [address] All VNA agencies which cover the area of patient's residence have been reviewed, either verbally or in writing, and patient/family have chosen the home health care agency noted Emergency contact: After hours and weekends, call the [facility] fulling machine operator at and ask them to page the neurosurgery resident school occupational therapist. * Plan of Care - Margot Monzon [...] Health Knowledge, Opportunity for Enhanced (Adult, NICU, [place], Obstetrics, Pediatric) Goal: Identify Signs and Symptoms [...] yo. Supervision: Continuous; Moraima. Fannie at home salicylic acid blender at bedside this morning ; Mom arrived [...] Health Knowledge, Opportunity for Enhanced (Adult, NICU, [place], Obstetrics, Pediatric) Goal: Identify Signs and Symptoms [...] (Interventions Implemented as Appropriate) 05/25/14 0527 05/26/14 9155 Plan of Care Review Plan of Care [...] AM EST Clinical Pharmacist Note-Vancomycin Tana Shelton [id number] 1995 Tana Shelton is a 18 y.o. [...] contact a pharmacist. Elmer Tobin, [place] Pager [phone] * Plan of Care - Leana Hicks [...] Outcome: Ongoing (Interventions Implemented as Appropriate) 05/27/14 8949 Infection, Risk/Actual (Adult, Obstetrics) Infection Prevention/Resolution/Control making progress toward outcome Problem: Fall/Trauma/Injury Risk (Pediatric) Goal: Identify Signs and Symptoms and Related Risk Factors Signs and symptoms and related risk factors are identified upon initiation of Human Response Clinical Practice Guideline (CPG) Outcome: Outcome (s) achieved Date Met: 05/27/14 05/22/14202905/25/14 467 Fall/Trauma/Injury Risk Personal Related Risk Factors (Fall/Trauma/Injury Risk) gait/mobility problems/weakness -- Physiological Related Risk Factors (Fall/Trauma/Injury Risk) -- developmental disability;incontinence;neurologic alteration;neuromuscular alteration Treatment Related Related Risk Factors (Fall/Trauma/Injury Risk) -- invasive/noninvasive equipment;medication;bed rest Signs and Symptoms (Fall/Trauma/Injury Risk) -- presence of risk factors Problem: Health Knowledge, Opportunity for Enhanced (Adult, NICU, [place], Obstetrics, Pediatric) Goal: Identify Signs and Symptoms [...] Burciaga MD - 05/26/2014 4:52 PM EST [facility] Operative Note Patient Name: Tana Shelton : [id number] MR#: [id number] Case Date: 05/26/2014 Surgeon: Surgeon(s) and Role: [...] (Interventions Implemented as Appropriate) 05/22/14 0634 05/24/14 7314 Discharge Needs Assessment Concerns to be Addressed [...] Health Knowledge, Opportunity for Enhanced (Adult, NICU, [place], Obstetrics, Pediatric) Goal: Identify Signs and Symptoms and Related Risk Factors Signs and symptoms and related risk factors are identified upon initiation of Human Response Clinical Practice Guideline (CPG) Outcome: Ongoing (Interventions Implemented as Appropriate) * Plan of Care - Carisa Godwin RN - 05/25/2014 8:02 AM EST Problem: Health Knowledge, Opportunity for Enhanced (Adult, NICU, [place], Obstetrics, Pediatric) Goal: Knowledgeable about Health Subject/Topic Patient will demonstrate the desired outcomes. Outcome: Outcome (s) achieved Date Met: 05/25/14 05/25/14 0802 Health Knowledge, Opportunity for Enhanced (Adult, NICU, [place], Obstetrics, Pediatric) Knowledgeable about Health Subject/Topic achieves [...] bedside;lighting adjusted for task/safety;low bed;environmental modification 05/25/14 0542 Musculoskeletal Interventions Activity/Level of Assistance -- Self-Care [...] Outcome: Ongoing (Interventions Implemented as Appropriate) 05/24/14 1995 Plan of Care Review Plan of Care [...] BILATERAL performed by YAS OLIVER [facility] OR ??? Apply of hip casts, two legs 08/15/2010 CAST APPLICATION, HIP SPICA, BOTH LEGS performed by YAS OLIVER at [facility] OR ??? Removal deep implant 08/15/2010 REMOVAL IMPLANT, DEEP, BRUNO performed by YAS OLIVER at [facility] OR ??? Osteotomy femur shaft/supracondy 08/15/2010 ??OSTEOTOMY, FEMUR SHAFT OR SUPRACONDYLAR W/O FIXATION performed by YAS OLIVER at [facility] OR ??? Remove spinal canal catheter N/A 05/11/2014 REMOVAL OF INTRATHECAL OR EPIDURAL CATHETER performed by Jamaal Samuel MD at [facility] OR ??? Remove infusn device/pump N/A 05/11/2014 REMOVAL OF SPINE INFUSION PUMP performed by Jamaal Samuel MD at [facility] OR ? ? I&d, post spine, lumb/sacr/lumbosac N/A 05/20/2014 @I & D, OPEN, DEEP ABSCESS, LUMBAR, SACRAL, LUMBOSACRAL performed by Freddy Burciaga MD at [facility] OR ??? Repr, dural/csf leak, not req laminectomy N/A 05/20/2014 @REPAIR DURAL\CSF LEAK,NOT REQUIRING LAMINECTOMY performed by Freddy Burciaga MD at [facility] OR Social and Developmental History: Patient lives with her family in a single level home in [place], [place]. Pt's mother reports that their home [...] has an older sister who lives in [place] and 3 younger brothers. She likes to [...] RN and mom assist. Feeding: per mom: [employer]OV[employer] assist for use of utensils; not observed [...] to d/c home with support and continued PT/OT/OYSTER FISHERMAN/VNA services. Spoke with CRC about consultfor new [...] you for this occupational therapy consult. Pager: [phone] Mary Joe OT 05/24/2014 Occupational Therapy Rehabilitation [...] BILATERAL performed by YAS OLIVER [facility] OR ??? Apply of hip casts, two legs 08/15/2010 CAST APPLICATION, HIP SPICA, BOTH LEGS performed by YAS OLIVER at [facility] OR ??? Removal deep implant 08/15/2010 REMOVAL IMPLANT, DEEP, BRUNO performed by YAS OLIVER at [facility] OR ??? Osteotomy femur shaft/supracondy 08/15/2010 ??OSTEOTOMY, FEMUR SHAFT OR SUPRACONDYLAR W/O FIXATION performed by YAS OLIVER at [facility] OR ??? Remove spinal canal catheter N/A 05/11/2014 REMOVAL OF INTRATHECAL OR EPIDURAL CATHETER performed by Jamaal Samuel MD at [facility] OR ??? Remove infusn device/pump N/A 05/11/2014 REMOVAL OF SPINE INFUSION PUMP performed by Jamaal Samuel MD at [facility] OR ? ? I&d, post spine, lumb/sacr/lumbosac N/A 05/20/2014 @I & D, OPEN, DEEP ABSCESS, LUMBAR, SACRAL, LUMBOSACRAL performed by Freddy Burciaga MD at [facility] OR ??? Repr, dural/csf leak, not req laminectomy N/A 05/20/2014 @REPAIR DURAL\CSF LEAK,NOT REQUIRING LAMINECTOMY performed by Freddy Burciaga MD at [facility] MAIN OR Social History: Patient lives with her family in a single story home in [place], [place]. Pt's mother reports that there is no stair requirement, and that she has all necessary equipment. Stairs: 0 without a rail to enter Baseline Mobility: Completely dependent for all care, home nursing VNA services 3x/week, school-based PT/OT/OYSTER FISHERMAN, pt due to receive a communication device [...] appropriate and joins in counting with this quality analyst/technical writer while stretching Objective: Pt seen for [...] minutes Natividad Esqueda PT, DPT 05/24/2014 Pager: [phone] Physical Therapy Inpatient Rehabilitation Department * Plan [...] based on it's ability to penetrate the EDGE POLISHER. We need todiscuss whether to pursue an [...] to 40 mEq. One dose of IV [id number] mEq administered per orders. Re-check of K [...] and Lipase were normal. Per her daycare oxygen therapy teacher, may be related to administration of oxycodone as this has been issue in the past. Cannotexclude component of baclofen withdrawal, but less likely. No current concern for acute EDGE POLISHER process. - Serial exams. Ensure daily BMs [...] although it may not have the best EDGE POLISHER penetration unless meninges are actually inflamed. - [...] fluid only. MD called for antiemetic and [place] tylenol. Zofran given when order receivedand med [...] PREVENTION: Assistance: Full assist, mom at bedside. biological aide will be coming in today to [...] Burciaga MD - 05/21/2014 11:53 AM EST [facility] Operative Note Patient Name: Tana Shelton : [id number] MR#: [id number] Case Date: 05/20/2014 - 05/21/2014 Surgeon: Surgeon(s) [...] performed by YAS OLIVER [facility] MAIN OR ??? Apply of hip [...] mcL Appearance UA Hazy (*) Clear Spec [place] UA 1.026 1.002 - 1.030 Color UA Yellow Yellow RBC UA 32 (*) 0 - 4 /HPF WBC UA 5 0 - 5 /HPF Bacteria UA Rare (*) None /HPF Squam Epith UA 1 <=4 /HPF Trans Epith UA 1 <=1 /HPF Amorph Adina UA Rare (*) None /HPF TISSUE CULTURE Result Value Range Tissue Culture Value: Patient Name: TNAA SHELTON Ordered By: Freddy BURCIAGA MR#: [id number] LOC: OR /Sex: 1995 (18 years), Female PROCEDURE: Tissue Culture SOURCE: Back COLLECTED: 05/20/2014 20:20 FREE TEXT SOURCE: Lumbar Wound Culture STARTED: 05/20/2014 22:13 STAINS / PREPARATIONS Gram Stain Report Verified:05/20/2014 22:28 Few White Blood Cells seen No microorganisms seen. TISSUE CULTURE Result Value Range Tissue Culture Value: Patient Name: TANA SHELTON Ordered By: Freddy BURCIAGA MR#: [id number] LOC: OR /Sex: 1995 (18 years), Female [...] PM EST Office Visit [place] [address] Hollie Ambriz MD [facility] [place] [address] Pending Results Name Type Priority Associated Diagnoses [...] REQUIRING LAMINECTOMY Routine 05/20/2014 10:22 PM EST GUIDE PLANT CULTURE Routine 5 10:01 PM EST ANAEROBIC [...] City/[facility]/ZIP Co de Phone Number CERALIN MILLENNIUM [...] Metabolic Panel (non-fasting) (06/02/2014 5:55 AM EST) [facility] Glucose 75 60 - 199 mg/dL CERNER MILLENNIUM Comment:Diabetes: >=200 mg/d L plus symptoms Blood Urea Nitrogen 5(L) 8 - 18 mg/dL CERNER MILLENNIUM Creatinine 0.30(L) 0.70 - 1.20 mg/dL CERNER MILLENNIUM Comment: Please note that the pediatric reference intervals supplied above were not validated at [facility]. Results from pediatric patients [...] the following links into your internet browser. [email or web address] Blood specimen (specimen) 06/02/2014 5:55 AM EST 06/02/2014 6:09 AM EST Narrative Resulting Agency Comment Spec In Lab S Alek Burciaga MD CHEMISTRY ORDERABLES [facility] * (ABNORMAL) Sedimentation rate (06/01/2014 12:40 PM EST) Sedimentation Rate Automated 46(H) 0 - 20 mm/hr LINDA BASHIR Blood specimen (specimen) Venous Draw / Unknown 06/01/2014 12:40 PM EST 06/01/2014 12:48 PM EST Narrative Resulting Agency Comment Spec In Lab S Alek Burciaga MD HEMATOLOGY ORDERABLE S Performing Organization Address [facility] Phone Number [facility] * High Sensitivity CRP (06/01/2014 12:40 PM EST) Pathologist [facility] C-Reactive Protein High Sensitivity 15.4 mg/L [facility] Comment: Interpretations: 1) For accurate cardiac risk [...] Burciaga MD CHEMISTRY ORDERABLES Performing Organization Address [facility] Phone Number [facility] * Differential, Automated (06/01/2014 12:40 PM EST) Neutrophil % 66.8 % [facility] Neutrophil Absolute 4.96 1.50 - 6.30 x10(3)/mcL [...] intervals supplied above were not validated at [facility]. Results from pediatric patients [...] the following links into your internet browser. [email or web address] Blood specimen (specimen) 06/01/2014 12:40 PM EST [...] MD HEMATOLOGY ORDERABLE S Performing Organization Address [facility]/ZIP Co de Phone Number CERNER MILLENNIUM [...] intervals supplied above were not validated at [facility]. Results from pediatric patients [...] the following links into your internet browser. [email or web address] Blood specimen (specimen) 05/30/2014 6:50 AM EST [...] intervals supplied above were not validated at [facility]. Results from pediatric patients [...] the following links into your internet browser. [email or web address] Blood specimen (specimen) 05/29/2014 7:13 AM EST [...] Lab S Alek Burciaga MD CHEMISTRY ORDERABLES [facility]Park[facility] * (ABNORMAL) Basic Metabolic Panel (non-fasting) (05/28/2014 9:00 AM EST) [facility] Glucose 121 60 - 199 mg/dL CERNER MILLENNIUM Comment:Diabetes: >=200 mg/d L plus symptoms Blood Urea Nitrogen 4(L) 8 - 18 mg/dL CERNER MILLENNIUM Creatinine 0.29(L) 0.70 - 1.20 mg/dL CERNER MILLENNIUM Comment: Please note that the pediatric reference intervals supplied above were not validated at [facility]. Results from pediatric patients [...] the following links into your internet browser. [email or web address] Blood specimen (specimen) 05/28/2014 9:00 AM EST [...] * (ABNORMAL) Hemogram (05/27/2014 5:30 AM EST) [facility] White Blood Cell 6.8 4.0 - [...] Burciaga MD HEMATOLOGY ORDERABLE S [facility] * (ABNORMAL) Basic Metabolic Panel (non-fasting) (05/27/2014 5:30 AM EST) [facility] Glucose 81 60 - 199 mg/dL CERNER MILLENNIUM Comment:Diabetes: >=200 mg/d L plus symptoms Blood Urea Nitrogen 4(L) 8 - 18 mg/dL CERNER MILLENNIUM Creatinine 0.21(L) 0.70 - 1.20 mg/dL CERNER MILLENNIUM Comment: Please note that the pediatric reference intervals supplied above were not validated at [facility]. Results from pediatric patients [...] the following links into your internet browser. [email or web address] Blood specimen (specimen) 05/27/2014 5:30 AM EST 05/27/2014 5:39 AM EST Narrative Resulting Agency Comment Spec In Lab Freddy Burciaga MD CHEMISTRY ORDERABLES Performing Organization Address City/State/[facility] Co mt Phone Number [facility] * Anaerobic Culture (05/26/2014 5:30 PM EST) Anaerobic Culture ? Patient Name: TANA SHELTON ? Ordered By: Freddy BURCIAGA ? MR#: [id number] ?LOC: ??PA ? /Sex: ??1995 (18 years), ? Female ? PROCEDURE: Anaerobic Culture ?SOURCE: Back ? COLLECTED: 05/26/2014 17:30 ?FREE TEXT SOURCE: Lumbar ? STARTED: 05/26/2014 17:41 ? FINAL REPORT ? Final Report ? Verified:2014 12:55 ? No anaerobic organisms isolated ? PRELIMINARY REPORT ? Preliminary Report ? Verified:2014 12:08 ? No anaerobic organisms isolated to date ? [facility]DA [facility] Structure of back of trunk (body structure) 05/26/2014 5:30 PM EST 05/26/2014 5:41 PM EST Comment:LUMBAR Narrative Resulting Agency Comment Spec In Lab Freddy Burciaga MD MICROBIOLOGY - GENER AL ORDERABLES [facility] * Tissue culture (05/26/2014 5:30 PM EST) Tissue Culture ? Patient Name: TANA SHELTON ? Ordered By: Freddy BURCIAGA ? MR#: [id number] ?LOC: ??PA ? /Sex: ??1995 (18 years), [...] S ? Patient: TANA SHELTON ? MR#: [id number] ? S=Susceptible ??I=Intermediate ??R=Resistant ??NA=Not Applicable ? DDS=Dose dependent-suscept ible ??NS=Non-suscepti ble ? [facility] Structure of back of trunk (body structure) 05/26/2014 5:30 PM EST 05/26/2014 5:41 PM EST Comment:LUMBAR Narrative Resulting Agency Comment Spec In Lab Freddy Burciaga MD MICROBIOLOGY - GENER AL ORDERABLES [facility] * Anaerobic Culture (05/26/2014 5:30 PM EST) Anaerobic Culture ? Patient Name: TANA SHELTON ? Ordered By: Freddy BURCIAGA ? MR#: [id number] ?LOC: ??PA ? /Sex: ??1995 (18 years), [...] ? Ordered By: Freddy BURCIAGA ? MR#: [id number] ?LOC: ??PA ? /Sex: ??1995 (18 years), [...] plates. ? Patient: TANA SHELTON ? MR#: [id number] ? SUSCEPTIBILITY RESULTS ? Coagulase negative Staphylococcus [...] (1) ? Gentamicin is not appropriate for [place]-therapy. ? (2) ? Penicillin resistant, Nafcillin susceptible [...] MD MICROBIOLOGY - GENER AL ORDERABLES [facility] * Anaerobic Culture (05/26/2014 5:30 PM EST) Anaerobic Culture ? Patient Name: TANA SHELTON ? Ordered By: Freddy BURCIAGA ? MR#: [id number] ?LOC: ??PA ? /Sex: ??1995 (18 years), [...] ? Ordered By: Freddy BURCIAGA ? MR#: [id number] ?LOC: ??PA ? /Sex: ??1995 (18 years), [...] MD MICROBIOLOGY - GENER AL ORDERABLES LINDA EKMPIUM * Antibody screen (05/26/2014 12:40 PM EST) Ab Screen Interp Negative CERNER MILLENNIUM Expires at [id number] on: [id number] CERNER THOMENNIUM Blood specimen (specimen) 05/26/2014 12:40 PM EST 05/26/2014 12:59 PM EST Narrative Resulting Agency Comment Spec In Lab S Alek Burciaga MD BLOOD BANK LAB ORDER MYRANDA LINDA TOMASEarth Networks * ABO/Rh Typing (05/26/2014 12:40 PM [...] S Alek Burciaga MD HEMATOLOGY ORDERABLE S [facility] MILLENNIUM * (ABNORMAL) Basic Metabolic Panel (non-fasting) (05/26/2014 4:15 AM EST) [facility] Glucose 88 60 - 199 mg/dL CERNER MILLENNIUM Comment:Diabetes: >=200 mg/d L plus symptoms Blood Urea Nitrogen 6(L) 8 - 18 mg/dL CERNER MILLENNIUM Creatinine 0.28(L) 0.70 - 1.20 mg/dL CERNER MILLENNIUM Comment: Please note that the pediatric reference intervals supplied above were not validated at [facility]. Results from pediatric patients [...] the following links into your internet browser. [email or web address] Blood specimen (specimen) 05/26/2014 4:15 AM EST 05/26/2014 4:35 AM EST Narrative Resulting Agency Comment Spec In Lab S Alek Burciaga MD CHEMISTRY ORDERABLES LINDA BASHIR * Place PICC Line: Contact Vascular Access Page [phone] (05/25/2014 4:01 PM EST) Narrative [place] [...] to the planned procedure. Hand Hygiene: The valve inserter did perform hand hygiene prior to line insertion. Catheter type: PICC Lot number: [id number] Procedure Technique: Skin was prepped with chlorhexidine. [...] focal. COMPARISON: Scoliosis radiographs from 12/16/2011 FINDINGS: Subscription Crew Leader views demonstrate severe rightward scoliotic deformity centered [...] No gross collections in the cervical spine. Subscription Crew Leader coronal image 8 of series 8 demonstrates [...] inf,focal. COMPARISON: Scoliosis radiographs from 12/16/2011 FINDINGS: Subscription Crew Leader views demonstrate severe rightward scoliotic deformity centered [...] abnormalities. No grosscollections in the cervical spine. Subscription Crew Leader coronal image 8 of series 8 demonstrates [...] and interpretation reviewed by the attending S lAek Burciaga MD IMG MRI ORDERABLES * MRI thoracic spine without contrast (05/25/2014 1:26 PM EST) Anatomical Region Laterality Modality T-spine Magnetic Resonan ce 05/25/2014 1:26 PM EST Narrative 05/25/2014 4:10 PM EST See accession #[id number] for dictation of this study. This report was reviewed by Andrade Rebolledo MD at 05/25/2014 4:05 PM Film and interpretation reviewed by the attending Procedure Note Andrade Roth MD - 05/25/2014 See accession #[id number] for dictation of this study. This report [...] Metabolic Panel (non-fasting) (05/25/2014 5:00 AM EST) [facility] Glucose 87 60 - 199 mg/dL CERNER MILLENNIUM Comment:Diabetes: >=200 mg/d L plus symptoms Blood Urea Nitrogen 6(L) 8 - 18 mg/dL CERNER MILLENNIUM Creatinine 0.27(L) 0.70 - 1.20 mg/dL CERNER MILLENNIUM Comment: Please note that the pediatric reference intervals supplied above were not validated at [facility]. Results from pediatric patients [...] the following links into your internet browser. [email or web address] Blood specimen (specimen) 05/25/2014 5:00 AM EST [...] 8 - 18 mg/dL CERNER MILLENNIUM Comment:result rechecked-[facility] Creatinine 0.39(L) 0.70 - 1.20 mg/dL CERNER MILLENNIUM Comment: Please note that the pediatric reference intervals supplied above were not validated at [facility]. Results from pediatric patients [...] the following links into your internet browser. [email or web address] Blood specimen (specimen) 05/24/2014 12:42 PM EST 05/24/2014 12:42 PM EST Narrative Resulting Agency Comment Spec In Lab S Alek Burciaga MD CHEMISTRY ORDERABLES Performing Organization Address [facility] Co de Phone Number LINDA KEMPIUM [...] Burciaga MD CHEMISTRY ORDERABLES Performing Organization Address [facility] de Phone Number LINDA TOMASENNIUM [...] Burciaga MD CHEMISTRY ORDERABLES Performing Organization Address [facility] Co de Phone Number CERALIN TOMASENNIUM [...] Burciaga MD CHEMISTRY ORDERABLES Performing Organization Address [facility] Phone Number CERNER MILLENNIUM * (ABNORMAL) Phosphorus (05/22/2014 12:45 PM EST) Phosphorus 2.2(L) 2.5 - 4.5 mg/dL CERNER MILLENNIUM Blood specimen (specimen) Venous Draw / Unknown 05/22/2014 12:45 PM EST 05/22/2014 1:03 PM EST Narrative Resulting Agency Comment Spec In Lab Lucho Smith MD CHEMISTRY ORDERABLES Performing Organization Address [facility] de Phone Number CERNER MILLENNIUM * Magnesium (05/22/2014 12:45 PM EST) Magnesium 0.69 0.69 - 1.07 mmol/L CERNER MILLENNIUM Blood specimen (specimen) Venous Draw / Unknown 05/22/2014 12:45 PM EST 05/22/2014 1:03 PM EST Narrative Resulting Agency Comment Spec In Lab Lucho Smith MD CHEMISTRY ORDERABLES Performing Organization Address [facility] Co de Phone Number CERNER MILLENNIUM * Lipase (05/22/2014 12:45 PM EST) Lipase 44 0 - 60 unit/L CERNER MILLENNIUM Blood specimen (specimen) 05/22/2014 12:45 PM EST 05/22/2014 1:03 PM EST Narrative Resulting Agency Comment Spec In Lab Lucho Smith MD CHEMISTRY ORDERABLES Performing Organization Address [facility] de Phone Number CERNER MILLENNIUM * Amylase (05/22/2014 12:45 PM EST) Amylase 89 28 - 100 unit/L CERNER MILLENNIUM Blood specimen (specimen) 05/22/2014 12:45 PM EST 05/22/2014 1:03 PM EST Narrative Resulting Agency Comment Spec In Lab Lucho Smith MD CHEMISTRY ORDERABLES Performing Organization Address [facility] de Phone Number CERNER MILLENNIUM * (ABNORMAL) Comprehensive metabolic panel (non-fasting) (05/22/2014 12:45 PM EST) Glucose 81 60 - 199 mg/dL CERNER MILLENNIUM Comment:Diabetes: >=200 mg/d L plus symptoms Blood Urea Nitrogen 2(L) 8 - 18 mg/dL CERNER MILLENNIUM Creatinine 0.31(L) 0.70 - 1.20 mg/dL CERNER MILLENNIUM Comment: Please note that the pediatric reference intervals supplied above were not validated at [facility]. Results from pediatric patients [...] the following links into your internet browser. [email or web address] Blood specimen (specimen) 05/22/2014 12:45 PM EST [...] MD HEMATOLOGY ORDERABLE S Performing Organization Address [facility] Co de Phone Number LINDA BASHIR [...] Lab S lAek Burciaga MD CHEMISTRY ORDERABLES Performing Organization Address [facility] Co de Phone Number [facility] * (ABNORMAL) Basic Metabolic Panel (non-fasting) (05/22/2014 6:10 AM EST) Glucose 86 60 - 199 mg/dL [facility] MILLENNIUM Comment:Diabetes: >=200 mg/d L plus symptoms Blood Urea Nitrogen 3(L) 8 - 18 mg/dL CERNER MILLENNIUM Creatinine 0.27(L) 0.70 - 1.20 mg/dL CERNER MILLENNIUM Comment: Please note that the pediatric reference intervals supplied above were not validated at [facility]. Results from pediatric patients [...] the following links into your internet browser. [email or web address] Blood specimen (specimen) 05/22/2014 6:10 AM EST [...] intervals supplied above were not validated at [facility]. Results from pediatric patients [...] the following links into your internet browser. [email or web address] Blood specimen (specimen) 05/21/2014 4:23 AM EST 05/21/2014 4:38 AM EST Narrative Resulting Agency Comment Spec In Lab Freddy Burciaga MD CHEMISTRY ORDERABLES Performing Organization Address City/State/[facility] Co mt Phone Number [facility] * Dairy Helper Culture (05/20/2014 10:01 PM EST) Dairy Helper Culture ? Patient Name: TANA SHELTON ? Ordered By: Freddy BURCIAGA ? MR#: [id number] ?LOC: ??PA ? /Sex: ??1995 (18 years), ? Female ? PROCEDURE: Dairy Helper Culture ?SOURCE: Other ? COLLECTED: 05/20/2014 22:01 [...] ? Ordered By: Freddy BURCIAGA ? MR#: [id number] ?LOC: ??PA ? /Sex: ??1995 (18 years), [...] ? Ordered By: Freddy BURCIAGA ? MR#: [id number] ?LOC: ??PA ? /Sex: ??1995 (18 years), [...] ? S ? Patient: CATTANA ? MR#: [id number] ? S=Susceptible ??I=Intermediate ??R=Resistant ??NA=Not Applicable ? [...] ? Ordered By: Freddy BURCIAGA ? MR#: [id number] ?LOC: ??PA ? /Sex: ??1995 (18 years), [...] ? Ordered By: Freddy BURCIAGA ? MR#: [id number] ?LOC: ??PA ? /Sex: ??1995 (18 years), [...] Spec In Lab S Aelk Burciaga MD MICROBIOLOGY - GENER AL ORDERABLES LINDA BASHIR * Urine culture First Catch Urine (05/20/2014 6:46 PM EST) Urine Culture ? Patient Name: TANA SHELTON ? Ordered By: BELKIS LOUIE ? MR#: [id number] ?LOC: ??[place] ? /Sex: ??1995 (18 years), ? Female ? PROCEDURE: Urine Culture ?SOURCE: U [facility] ? COLLECTED: 05/20/2014 18:46 ? STARTED: 05/20/2014 [...] Urine Dipstick Hazy(A) Clear CERNER MILLENNIUM Specific [place] Urine Automated 1.026 1.002 - 1.030 CERNER [...] Belkis Louie MD URINE ORDERABLES [facility] * L-Lactate2 Whole Blood (05/20/2014 6:17 PM EST) Pathologist [facility] Lactate WB 1.6 0.5 - 2.2 mmol/L [facility] Blood specimen (specimen) 05/20/2014 6:17 PM EST 05/20/2014 6:17 PM EST Belkis Louie MD CHEMISTRY ORDERABLES [facility] * Blood culture (05/20/2014 6:00 PM EST) Blood Culture ? Patient Name: TANA SHELTON ? Ordered By: BELKIS LOUIE ? MR#: [id number] ?LOC: ??[place] ? /Sex: ??1995 (18 years), [...] City/[facility]/ZIP Co de Phone Number CERALIN TOMASENNIUM [...] ? Ordered By: BELKIS LOUIE ? MR#: [id number] ?LOC: ??[place] ? /Sex: ??1995 (18 years), [...] 81 60 - 199 mg/dL [facility] Comment:Diabetes: >=200 mg/d L plus symptoms Blood specimen (specimen) 05/20/2014 5:15 PM EST 05/20/2014 5:31 PM EST Narrative Resulting Agency Comment Spec In Lab Belkis Louie MD CHEMISTRY ORDERABLES Performing Organization Address [facility] Co de Phone Number [facility] * (ABNORMAL) Creatinine (05/20/2014 5:15 PM EST) Creatinine 0.37(L) 0.70 - 1.20 mg/dL [facility] Comment: Please note that the pediatric reference intervals supplied above were not validated at [facility]. Results from pediatric patients should be interpreted in conjunction to the patient's age, height and muscle mass. Est Glomerular Filtration Rate >60 >=60 [facility] Comment: This estimated GFR (eGFR) value was [...] the following links into your internet browser. [email or web address] Blood specimen (specimen) 05/20/2014 5:15 PM EST 05/20/2014 5:31 PM EST Narrative Resulting Agency Comment Spec In Lab Belkis Louie MD CHEMISTRY ORDERABLES Performing Organization Address City/[facility] Co de Phone Number LINDA BASHIR * BUN (05/20/2014 5:15 PM EST) Blood Urea Nitrogen 9 8 - 18 mg/dL [facility] Blood specimen (specimen) 05/20/2014 5:15 PM EST [...] Louie MD CHEMISTRY ORDERABLES Performing Organization Address City/[facility]/ZIP Co de Phone Number LINDA BASHIR [...] Nely Boss, Indication for (Active or Suspected): EDGE POLISHER/Meningitis 0616 (Given - Provider: Linsey Mcintyre RN)1446 [...] Patino RN) 012 (Given - Provider: Margot Monzon RN)0836 (Given - Provider: Hedy Vazquez RN) Continuous Medication Order 05/31/2014 06/01/2014 06/02/2014 sodium chloride 0.9% with potassium chloride 20 mEq infusion (CANCELED) 50 mL/hr, Intravenous, CONTINUOUS, Starting on Tu05/23/14 at 1830, Until Thu06/02/14 at 1832 1244 [...] Routine documented in this encounter Care Teams Nail Making Machine Tender Relationship Specialty Start Date End Date Naina Lindsey MD [address] [place] [address] [place] [address] PCP - General 03/19/10 08/25/16 documented as of this encounter
--- OUTSIDE RECORDS SUMMARY | 2024-01-12 21:21 | XMS_ITS | Encounter Summary ---
Author Organization [facility] [place] [address] Care Team Providers Care Cyber Incident Analyst Name Role Phone Naina Lindsey MD Primary Care Provider [phone] Encounter Details Date Type Department Care Team (Late st Contact Info) Description 03/10/2014 Orders Only [place] [address] Alek Sinha, [place] [facility] [place] [address] Pre-op chest exam; Pre-op evaluation Social History [...] PM EST Office [place] [address] Hollie Ambriz MD [facility] [place] [address] documented as of this encounter Visit Diagnoses Diagnosis Pre-op chest exam Pre-operative respiratory examination Pre-op evaluation Preoperative examination, unspecified documented in this encounter Care Teams Cyber Incident Analyst Relationship Specialty Start Date End Date Naina Lindsey MD [address] [place] [address] PCP - General 03/19/10 08/25/16 documented as of this encounter
--- OUTSIDE RECORDS SUMMARY | 2024-01-12 21:21 | XMS_ITS | Encounter Summary ---
Author Organization [facility] [place] [address] Care Team Providers Care Factory Laborer Name Role Phone Naina Lindsey MD Primary Care Provider [phone] Reason for Visit * Reason Comments Pain Pain, Chronic Encounter Details Date Type Department Care Team (Latest Contact Info) Description 03/15/2014 4:45 PM EST Procedure visit [place] [id number] Donnell Dotson MD [facility] [place] [address] Presence of intrathecal baclofen pump; Abnormal involuntary movements(061.0) Discharge Disposition: Home Social History Tobacco Use [...] 25 mcg per day. Donnell Dotson MD Aeronautical Engineering Teacher of Anesthesiology [facility] documented in this encounter Plan of Treatment Upcoming Encounters Date Type Department Care Team (Late st Contact Info) Description 06/02/2024 12:30 PM EST Office [place] [address] Hollie Ambriz MD [facility] [place] [address] documented as of this encounter Procedures Procedure [...] 25 mcg per day. Donnell Dotson MD Aeronautical Engineering Teacher of Anesthesiology [facility] Donnell Dotson MD PROCEDURE/MINOR SURG ICAL ORDERABLES documented in this encounter Visit Diagnoses Diagnosis Presence of intrathecal baclofen pump Abnormal involuntary movements(781.0) Abnormal involuntary movements documented in this encounter Care Teams Factory Laborer Relationship Specialty Start Date End Date Naina Lindsey MD [address] [place] [address] PCP - General 03/19/10 08/25/16 documented as of this encounter
--- OUTSIDE RECORDS SUMMARY | 2024-01-12 21:21 | XMS_ITS | Encounter Summary ---
Author Organization [facility] [place] [address] Care Team Providers Care Valve Inserter Name Role Phone Naina Lindsey MD Primary Care Provider [phone] Reason for Visit * Reason Comments Pain Management Encounter Details Date Type Department Care Team (Latest Contact Info) Description 02/28/2014 4:30 PM EST Procedure [place] [phone] Donnell Dotson MD [facility] [place] [address] Karen Early [facility] [place] [address] Traumatic brain injury, sequela (Primary Dx) Discharge [...] 02/28/2014 4:58 PM EST Tana Cavazos 02/28/2014 [id number] Intrathecal Pump Visit Tana Cavazos presents today [...] PM EST Office [place] [address] Hollie Ambriz MD [facility] [place] [address] documented as of this encounter Visit Diagnoses Diagnosis Traumatic brain injury, sequela- Primary documented in this encounter Care Teams Valve Inserter Relationship Specialty Start Date End Date Naina Lindsey MD [address] [place] [address] [place] [address] PCP - General 03/19/10 08/25/16 documented as of this encounter
--- OUTSIDE RECORDS SUMMARY | 2024-01-12 21:21 | XMS_ITS | Encounter Summary ---
Author Organization [facility] [place] [address] Care Team Providers Care Careers Counsellor Name Role Phone Naina Lindsey MD Primary Care Provider [phone] Encounter Details Date Type Department Care Team (Late st Contact Info) Description 02/27/2014 Telephone [place] [address] Donnell Dotson MD [facility] [place] [address] Social History Tobacco Use Types Packs/Day Years [...] PM EST Office Visit [place] [address] Hollie Ambriz MD [facility] [place] [address] documented as of this encounter Visit Diagnoses Not on filedocumented in this encounter Care Teams Careers Counsellor Relationship Specialty Start Date End Date Naina Lindsey MD [address] [place] [place] [address] PCP - General 03/19/10 08/25/16 documented as of this encounter
--- OUTSIDE RECORDS SUMMARY | 2024-01-12 21:21 | XMS_ITS | Encounter Summary ---
[place] [address] Care Team Providers Care Diesel Engineer Name Role Phone Naina Lindsey MD Primary Care Provider [phone] Encounter Details Date Type Department Care Team (Latest Contact Info) Description 03/29/2014 4:15 PM EST Procedure [place] [address] Donnell Dotson MD [facility] [place] [address] Traumatic brain injury, subsequent encounter; Abnormal involuntary [...] would be in order. Donnell Dotson MD Melt House Drag Operator of Anesthesiology [facility] documented in this encounter Plan of Treatment Upcoming Encounters Date Type Department Care Team (Late st Contact Info) Description 06/02/2024 12:30 PM EST Office [place] [address] Hollie Ambriz MD [facility] [place] [address] documented as of this encounter Procedures Procedure [...] would be in order. Donnell Dotson MD Melt House Drag Operator of Anesthesiology [facility] Donnell Dotson MD PROCEDURE/MINOR SURG ICAL ORDERABLES documented in this encounter Visit Diagnoses Diagnosis Traumatic brain injury, subsequent encounter Abnormal involuntary movements(781.0) Abnormal involuntary movements documented in this encounter Care Teams Diesel Engineer Relationship Specialty Start Date End Date Naina Lindsey MD [address] [place] [address] PCP - General 03/19/10 08/25/16 documented as of this encounter
--- OUTSIDE RECORDS SUMMARY | 2024-01-12 21:21 | XMS_ITS | Encounter Summary ---
Author Organization [facility] [place] [address] Care Team Providers Care Polystyrene Molding Machine Tender Name Role Phone Naina Lindsey MD Primary Care Provider [phone] Encounter Details Date Type Department Care Team (Late st Contact Info) Description 05/03/2014 Unscheduled Encounter [place] [address] Alek Sinha, ELECTRONICS PRODUCTION SUPERVISOR [facility] DR [place] [address] Spasticity Social History Tobacco Use Types Packs/Day [...] her tone. She has been seen at [facility] by Barron Dotson who has weaned the [...] PM EST Office [place] [address] Hollie Ambriz MD [facility] [address] [place] [address] documented as of this encounter Visit Diagnoses Diagnosis Spasticity Abnormal involuntary movements documented in this encounter Care Teams Polystyrene Molding Machine Tender Relationship Specialty Start Date End Date Naina Lindsey MD [address] [place] [address] PCP - General 03/19/10 08/25/16 documented as of this encounter
--- OUTSIDE RECORDS SUMMARY | 2024-01-12 21:21 | XMS_ITS | Encounter Summary ---
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 Dotson Reason for Reprogramming: Pump alarm date approaching Diagnosis: Spacticity, traumatic head injury Telemetry Pre-programming Reading: Drug Concentration Daily Dose Baclofen 1,000 mcg/ ml 195.1 mcg/ day Telemetry Post-programming Reading: Drug Concentration Daily Dose Brand (B) or Compound (C) Lot number Baclofen 1,000 mcg/ ml 195.1 mcg/ day Compound #[id number] Simple Continuous Rx # [id number] Exp. 02/05/13 Pump Capacity: 40 ml Computer [...] instilled into the pump according to the world travel counselor's directions without difficulty. There was no evidence [...] PM EST Office [place] [address] Hollie Ambriz MD [facility] [place] [address] documented as of this encounter Procedures Procedure [...] with Reprogramming Procedure Note Tana Cavazos ? [id number] Date of Refill: January 20, 2013 Primary Senior Web Analyst: ASHKAN BRANTLEY APRN Education Dean: Dr. Dotson Reason for Reprogramming: ??Pump alarm date approaching Diagnosis: ??Spacticity, traumatic head injury Telemetry Pre-programming Reading: Drug Concentration Daily Dose Baclofen 1,000 mcg/ ml 195.1 mcg/ day ? Telemetry Post-programming Reading: ?? Drug Concentration Daily Dose Brand (B) or Compound (C) Lot number Baclofen 1,000 mcg/ ml 195.1 mcg/ day Compound #[id number] Simple Continuous ?? Rx # [id number] Exp. 02/05/13 ? Pump Capacity: ??40 ml [...] drapes were applied as provided with the ??[employer] refill kit. A 22 gauge Persaud non-coring [...] instilled into the pump according to the world travel counselor's directions without difficulty. There was no evidence [...] Pump with Reprogramming Procedure Note Tana Cavazos [id number] Date of Refill: January 20, 2013 Primary Senior Web Analyst: ASHKAN BRANTLEY APRN Education Dean: Dr. Dotson Reason for Reprogramming: Pump alarm date approaching Diagnosis: Spacticity, traumatic head injury Telemetry Pre-programming Reading: Drug Concentration Daily Dose Baclofen 1,000 mcg/ ml 195.1 mcg/ day Telemetry Post-programming Reading: Drug Concentration Daily Dose Brand (B) or Compound (C) Lot number Baclofen 1,000 mcg/ ml 195.1 mcg/ day Compound #[id number] Simple Continuous Rx # [id number] Exp. 02/05/13 Pump Capacity: 40 ml Computer [...] wasinstilled into the pump according to the world travel counselor's directions withoutdifficulty. There was no evidence of [...] procedure well [facility] Follow-up appointments will be arranged [...] each documented in this encounter Care Teams Fondant Machine Operator Relationship Specialty Start Date End Date Naina Lindsey MD [address] [place] [address] PCP - General 03/19/10 08/25/16 documented as of this encounter
--- OUTSIDE RECORDS SUMMARY | 2024-01-12 21:21 | XMS_ITS | Encounter Summary ---
Author Organization [facility] [place] [address] Care Team Providers Care Certified Addiction Counselor Name Role Phone Naina Lindsey MD Primary Care Provider [phone] Reason for Visit * Reason Comments Other pump wean Encounter Details Date Type Department Care Team (Latest Contact Info) Description 02/09/2014 11:45 AM EDT Procedure [place] [address] Donnell Dotson MD [facility] [place] [address] Traumatic brain injury, sequela; Abnormal involuntary movements(501.0) Discharge Disposition: Home Social [...] access to your electronic medical record at [facility] and the ability to communicate [...] the instructions. Here is your activation code: [email or web address] Expires: 03/26/2014 12:29 PM Remember, myD-H is NOT for urgent needs! Always dial 911 for medical emergencies. documented in this encounter Procedure Notes * Donnell Dotson MD - 02/09/2014 2:59 PM EDTAssociated Order(s): INTRATHECAL PUMP REPROGRAMMING Pre-Procedure Diagnose(s): Abnormal involuntary movements(781.0) Patient and mother coming today. Since he was last seen, the orthopedic surgeons and the rest of the team at [facility] have agreed that she no longer needs the intrathecal baclofen. She like to be tapered off the baclofen before the pump is basically no longer effective, 3 months from now. Looking at the [employer] website and calling the local [employer] baclofen pump patient financial representative, we decided to decrease her pump [...] PM EST Office [place] [address] Hollie Ambriz MD [facility] [place] [address] documented as of this encounter Procedures Procedure [...] and the rest of the team at [facility] have agreed that she no longer needs the intrathecal baclofen. She like to be tapered off the baclofen before the pump is basically no longer effective, 3 months from now. Looking at the [employer] website and calling the local [employer] baclofen pump patient financial representative, we decided to decrease her pump [...] and the rest of the team at [facility] haveagreed that she no longer needs the intrathecal baclofen. She like to betapered off the baclofen before the pump is basically no longer effective,3 months from now. Looking at the [employer] website and calling the local [employer] baclofenpump patient financial representative, we decided to decrease her pump [...] documented in this encounter Care Teams Certified Addiction Counselor Relationship Specialty Start Date End Date Naina Lindsey MD [address] [place] [address] PCP - General 03/19/10 08/25/16 documented as of this encounter
--- OUTSIDE RECORDS SUMMARY | 2024-01-12 21:21 | XMS_ITS | Encounter Summary ---
Author Organization [facility] Address [facility] [place] [address] Care Team Providers Care Water Truck Driver Name Role Phone Lorna Bal APRN Primary Care Provider [phone] Encounter Details Date Type Department Care Team (Late st Contact Info) Description 12/21/2013 Interpretation Only Radiology Library at [facility] [place] [address] Chuckie Mayfield MD [facility] [place] [address] Social History Tobacco Use Types Packs/Day Years [...] Office Visit [place] [address] Hollie Ambriz MD [facility] [place] [address] documented as of this encounter Procedures Procedure [...] FILM LIBRARY ORD ERABLES Performing Organization Address City/State/[facility] Co de Phone Number [place], [place] documented in this encounter Visit Diagnoses [...] documented as of this encounter Care Teams Water Truck Driver Relationship Specialty Start Date End Date Lorna Bal APRN [address] [place] [address] PCP - General Family Medicine 05/27/18 documented as of this encounter
--- OUTSIDE RECORDS SUMMARY | 2024-01-12 21:21 | XMS_ITS | Encounter Summary ---
Author Organization [facility] [place] [address] Care Team Providers Care Bellows Assembler Name Role Phone Naina Lindsey MD Primary Care Provider [phone] Encounter Details Date Type Department Care Team (Late st Contact Info) Description 12/21/2013 1:30 PM EDT Ancillary Procedure Radiology Library at [facility] [place] [address] Chuckie Mayfield MD [facility] [place] [address] Social History Tobacco Use Types Packs/Day Years [...] PM EST Office Visit Infectious Disease at [facility] [place] [address] Hollie Ambriz MD [facility] [place] [address] documented as of this encounter Procedures Procedure Name Priority Date/Time Associated Diagnosis Comments FILM LIBRARY STORAGE ONLY DX UPPER EXTREMITY Routine 12/21/2013 1:30 PM EDT documented in this encounter Results * Film Library- Storage Only DX Upper Extremity (12/21/2013 1:30 PM EDT) 08/10/2023 3:14 PM EDT Narrative [facility] - 08/10/2023 3:14 PM EDT This exam is auto-finalizing. It's purpose is for storage only. Chuckie Mayfield MD IMG FILM LIBRARY ORD ERABLES [place], [place] documented in this encounter Visit Diagnoses Not on filedocumented in this encounter Care Teams Bellows Assembler Relationship Specialty Start Date End Date Naina Lindsey [place] [address] PCP - General 03/19/10 08/25/16 documented as of this encounter
--- OUTSIDE RECORDS SUMMARY | 2024-01-12 21:21 | XMS_ITS | Encounter Summary ---
Author Organization [facility] [place] [address] Care Team Providers Care Inspector Toys Name Role Phone Naina Lindsey MD Primary Care Provider [phone] Encounter Details Date Type Department Care Team (Late st Contact Info) Description 06/16/2013 Orders [place] [address] Christiano Floyd MD [facility] [place] [address] Social History Tobacco Use Types Packs/Day Years [...] PM EST Office Visit [place] [address] Hollie Ambriz MD [facility] [place] [address] documented as of this encounter Visit Diagnoses Not on filedocumented in this encounter Care Teams Inspector Toys Relationship Specialty Start Date End Date Naina Lindsey MD [address] [place] [address] [place] [address] PCP - General 03/19/10 08/25/16 documented as of this encounter
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
--- OUTSIDE RECORDS SUMMARY | 2024-01-12 21:21 | XMS_ITS | Encounter Summary ---
Author Organization [facility] Address [facility] [place] [place] [address] Care Team Providers Care Operations Assistant Name Role Phone Naina Lindsey MD Primary Care Provider [phone] Reason for Visit * Reason Comments Follow-up PRE-SURGERY QUESTION S Encounter Details Date Type Department Care Team (Late st Contact Info) Description 05/03/2014 3:00 PM EST Follow-[place] [address] Jamaal Samuel MD [facility] [place] [address] Presence of intrathecal baclofen pump Discharge Disposition: [...] pump placed for increased extremity tone at [facility] in 2007 but mom believes [...] Office [place] [address] Hollie Ambriz MD [facility] [place] [address] documented as of this encounter Visit Diagnoses Diagnosis Presence of intrathecal baclofen pump documented in this encounter Care Teams Operations Assistant Relationship Specialty Start Date End Date Naina Lindsey MD [address] [place] [address] [place] [address] PCP - General 03/19/10 08/25/16 documented as of this encounter
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
--- OUTSIDE RECORDS SUMMARY | 2024-01-12 21:21 | XMS_ITS | Encounter Summary ---
Author Organization [facility] Address [facility] [place] [address] Care Team Providers Care Barber Shop Operator Name Role Phone Naina Lindsey MD Primary Care Provider [phone] Reason for Referral * Consultation (Routine) - Closed Specialty Diagnoses / Procedures Referred By Contac t Referred To Contact Pediatric Neurosurgery Diagnoses Baclofen pump failure, initial encounter Donnell Dotson MD [facility] [place] [address] Jamaal Samuel MD [facility] [place] [address] Referral ID Status Reason Start Date Expiration Date V isits Requested Visits Authorized [id number] Closed Consult, Test & Treat 02/15/2014 08/14/2014 1 1 Encounter Details Date Type Department Care Team (Late st Contact Info) Description 02/15/2014 Orders [place] [address] Donnell Dotson MD [facility] [place] [id number] Baclofen pump failure, initial encounter Social History [...] PM EST Office Visit [place] [address] Hollie Ambriz MD [facility] [place] [address] Scheduled Referrals Name Type Priority Associated Diagnoses Order Schedule Referral to Pediatric Neurosurgery Outpatient Referral Routine Baclofen pump failure, initial encounter Ordered: 02/15/2014 documented as of this encounter Visit Diagnoses Diagnosis Baclofen pump failure, initial encounter documented in this encounter Care Teams Barber Shop Operator Relationship Specialty Start Date End Date Naina Lindsye MD [address] [place] [address] PCP - General 03/19/10 08/25/16 documented as of this encounter
--- OUTSIDE RECORDS SUMMARY | 2024-01-12 21:21 | XMS_ITS | Encounter Summary ---
Author Organization [facility] [place] [address] Care Team Providers Care Glassworker Name Role Phone Naina Lindsey MD Primary Care Provider [phone] Reason for Visit * Reason Onset Date Comments Medication Refill 11/08/2013 Encounter Details Date Type Department Care Team (Late st Contact Info) Description 11/08/2013 [place] [address] Aida Carey, LINE ASSEMBLER AIRCRAFT Social History Tobacco Use Types Packs/Day Years [...] EST Office Visit [place] [address] Hollie Ambriz MD [facility] [place] [address] documented as of this encounter Visit Diagnoses Not on filedocumented in this encounter Care Teams Glassworker Relationship Specialty Start Date End Date Naina Lindsey MD [address] [place] [address] PCP - General 03/19/10 08/25/16 documented as of this encounter
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
--- OUTSIDE RECORDS SUMMARY | 2024-01-12 21:21 | XMS_ITS | Encounter Summary ---
Author Organization [facility] [place] [address] Care Team Providers Care Livestock Buyer Name Role Phone Naina Lindsey MD Primary Care Provider [phone] Encounter Details Date Type Department Care Team (Late st Contact Info) Description 12/22/2012 Orders [place] [address] Christiano Floyd MD [facility] [place] [place] [address] Social History Tobacco Use Types Packs/Day Years [...] PM EST Office [place] [address] Hollie Ambriz MD [facility] [place] [address] documented as of this encounter Visit Diagnoses Not on filedocumented in this encounter Care Teams Livestock Buyer Relationship Specialty Start Date End Date Naina Lindsey MD [address] [place] [address] [place] [address] PCP - General 03/19/10 08/25/16 documented as of this encounter
--- OUTSIDE RECORDS SUMMARY | 2024-01-12 21:22 | XMS_ITS | Encounter Summary ---
Author Organization [facility] [place] [address] Care Team Providers Care Production Shift Supervisor Name Role Phone Naina Lindsey MD Primary Care Provider [phone] Reason for Visit * Reason Onset Date Comments Other 11/11/2010 WANTED NOTES [facility]AM[facility] M SURG Encounter Details Date Type Department Care Team (Late st Contact Info) Description 11/11/2010 Telephone [place] [address] Yas Ramirez MD [facility] [address] ORTHOPAEDIC [place] [address] Other (WANTED NOTES FROM SURG) Social History [...] PM EST Office [place] [address] Hollie Ambriz MD [facility] INFECTIOUS [place] [address] documented as of this encounter Visit Diagnoses Not on filedocumented in this encounter Care Teams Production Shift Supervisor Relationship Specialty Start Date End Date Naina Lindsey MD [address] [place] [address] [place] [address] PCP - General 03/19/10 08/25/16 documented as of this encounter
--- OUTSIDE RECORDS SUMMARY | 2024-01-12 21:22 | XMS_ITS | Encounter Summary ---
Author Organization [facility] [place] [address] Care Team Providers Care Brake Lining Curer Name Role Phone Naina Lindsey MD Primary Care Provider [phone] Encounter Details Date Type Department Care Team (Late st Contact Info) Description 11/18/2010 Abstract [place] [address] Jessica López, RN Social History Tobacco Use [...] PM EST Office Visit [place] [address] Hollie Ambriz MD [facility] DR INFECTI[place] [address] documented as of this encounter Visit Diagnoses Not on filedocumented in this encounter Care Teams Brake Lining Curer Relationship Specialty Start Date End Date Naina Lindsey MD [address] [place] [address] [place] [address] PCP - General 03/19/10 08/25/16 documented as of this encounter
--- OUTSIDE RECORDS SUMMARY | 2024-01-12 21:22 | XMS_ITS | Encounter Summary ---
Author Organization [facility] [place] [address] Care Team Providers Care Filling Technician Name Role Phone Naina Lindsey MD Primary Care Provider [phone] Encounter Details Date Type Department Care Team (Late st Contact Info) Description 06/30/2011 Orders [place] [address] Boyd Dillon MD [facility] [place] [address] Spasticity (Primary Dx) Social History Tobacco Use [...] PM EST Office [place] [address] Hollie Ambriz MD [facility] [place] [address] documented as of this encounter Visit Diagnoses Diagnosis Spasticity- Primary Abnormal involuntary movements documented in this encounter Care Teams Filling Technician Relationship Specialty Start Date End Date Naina Lindsey MD [address] [place] [address] [place] [address] PCP - General 03/19/10 08/25/16 documented as of this encounter
--- OUTSIDE RECORDS SUMMARY | 2024-01-12 21:22 | XMS_ITS | Encounter Summary ---
Author Organization [facility] [place] [address] Care Team Providers Care Science Specialist Name Role Phone Naina Lindsey MD Primary Care Provider [phone] Reason for Visit * Reason Comments Spasms Encounter Details Date Type Department Care Team (Late st Contact Info) Description 11/20/2010 12:45 PM EDT Follow-[place] [address] Christiano Floyd MD [facility] [place] [address] Spastic quadriplegia (Primary Dx) Discharge Disposition: Home [...] 1:2 7 PM EDT Growth Chart: [facility] (Girls, 2- 20 Years) documented in this encounter Progress Notes * Gaby Silva - 11/20/2010 3:00 PM EDT Pain Management Center Refill of Intrathecal Pump with Reprogramming Procedure Note Tana Robles Cavazos [id number] Date of Refill: 11/20/10 Primary Storage Facility Housekeeper: Dr. Silva Rotary Drier: Dr. Floyd Reason for Reprogramming: Refill Diagnosis: [...] into the pump according to the manager mobility's directions without difficulty. There was no evidence [...] PM EST Office [place] [address] Hollie Ambriz MD [facility] [place] [address] documented as of this encounter Visit Diagnoses Diagnosis Spastic quadriplegia- Primary Quadriplegia, unspecified documented in this encounter Care Teams Science Specialist Relationship Specialty Start Date End Date Naina Lindsey MD [address] [place] [place] [address] PCP - General 03/19/10 08/25/16 documented as of this encounter
--- OUTSIDE RECORDS SUMMARY | 2024-01-12 21:22 | XMS_ITS | Encounter Summary ---
Author Organization [facility] [place] [address] Care Team Providers Care Golf Course Keeper Name Role Phone Naina Lindsey MD Primary Care Provider [phone] Encounter Details Date Type Department Care Team (Late st Contact Info) Description 07/12/2012 Telephone [place] [phone] Aniket Heredia MD [facility] [place] [address] Social History Tobacco Use Types Packs/Day Years [...] her child evaluated in the ED at [facility] over the weekend and today again at her strategy analyst's office. She reports that Tana seems to [...] this plan. Aniket Heredia MD Pain fellow [facility] documented in this encounter Plan of Treatment Upcoming Encounters Date Type Department Care Team (Late st Contact Info) Description 06/02/2024 12:30 PM EST Office Visit [place] [address] Hollie Ambriz MD [facility] [place] [address] documented as of this encounter Visit Diagnoses Not on filedocumented in this encounter Care Teams Golf Course Keeper Relationship Specialty Start Date End Date Naina Lindsey MD [address] [place] [address] [place] [address] PCP - General 03/19/10 08/25/16 documented as of this encounter
--- OUTSIDE RECORDS SUMMARY | 2024-01-12 21:22 | XMS_ITS | Encounter Summary ---
Author Organization [facility] Benjamin [facility] [place] [address] Care Team Providers Care Electrician Journeyman Wireman Name Role Phone Naina Lindsey MD Primary Care Provider [phone] Reason for Visit * Reason Comments Bilateral Leg Pain CP Encounter Details Date Type Department Care Team (Late st Contact Info) Description 05/19/2011 10:40 AM EST [place] [address] Yas Ramirez MD [facility] [place] [address] TBI (traumatic brain injury) (Primary Dx); Scoliosis; [...] PM EST Office [place] [address] Hollie Ambriz MD [facility] [place] [address] documented as of this encounter Results * [...] idiopathic documented in this encounter Care Teams Electrician Journeyman Wireman Relationship Specialty Start Date End Date Naina Lindsey MD [address] [place] [address] PCP - General 03/19/10 08/25/16 documented as of this encounter
--- OUTSIDE RECORDS SUMMARY | 2024-01-12 21:22 | XMS_ITS | Encounter Summary ---
[place] [address] Care Team Providers Care County Adviser Name Role Phone Naina Lindsey MD Primary Care Provider [phone] Encounter Details Date Type Department Care Team (Late st Contact Info) Description 12/17/2010 [place] [address] Mony Fierro, RN Social History [...] PM EST Office [place] [address] Hollie Ambriz MD [facility] [place] [address] documented as of this encounter Visit Diagnoses Not on filedocumented in this encounter Care Teams County Adviser Relationship Specialty Start Date End Date Naina Lindsey MD [address] [place] [address] PCP - General 03/19/10 08/25/16 documented as of this encounter
--- OUTSIDE RECORDS SUMMARY | 2024-01-12 21:22 | XMS_ITS | Encounter Summary ---
Author Organization [facility] [place] [address] Care Team Providers Care Crank Hand Name Role Phone Naina Lindsey MD Primary Care Provider [phone] Reason for Visit * Reason Comments Cerebral Palsy Encounter Details Date Type Department Care Team (Latest Contact Info) Description 07/11/2011 8:30 AM EDT Procedure [place] [address] Yudelka Coyne MD [facility] [place] [address] Spasticity (Primary Dx); Abnormal involuntary movements Discharge [...] provided the care. Christiana Woods DO N [facility] PAIN MANAGEMENT [place] [address] Dept: [phone] * Yudelka Coyne MD - 07/11/2011 10:56 AM EDT INTRATHECAL PUMP REFILL PROCEDURE NOTE WITH REPROGRAMMING Primary Document Imaging Manager: Dr. Steffany Coyne Edge Bonder: Lucia Mazariegos LPN Reason for Reprogramming: refill [...] no Empty syringe concentration verified by checker bakery products: no If concentration of drug is different, [...] drapes were applied as provided with the Coloraderdamtronic refill kit. A 22 gauge Persaud non-coring [...] instilled into the pump according to the video software engineer's directions without difficulty. There was no evidence [...] PM EST Office Visit [place] [address] Hollie Ambriz MD [facility] [place] [address] Scheduled Orders Name Type Priority Associated Diagnoses [...] each documented in this encounter Care Teams Crank Hand Relationship Specialty Start Date End Date Naina Lindsey MD [address] [place] [address] PCP - General 03/19/10 08/25/16 documented as of this encounter
--- OUTSIDE RECORDS SUMMARY | 2024-01-12 21:22 | XMS_ITS | Encounter Summary ---
Author Organization [facility] [place] [address] Care Team Providers Care Tint Layer Name Role Phone Naina Lindsey MD Primary Care Provider [phone] Encounter Details Date Type Department Care Team (Late st Contact Info) Description 01/05/2012 Orders [place] [address] Christiano Floyd MD [facility] [place] [address] Spasticity (Primary Dx) Social History [...] PM EST Office [place] [address] Hollie Ambriz MD [facility] [address] [place] [address] documented as of this encounter Visit Diagnoses Diagnosis Spasticity- Primary Abnormal involuntary movements documented in this encounter Care Teams Tint Layer Relationship Specialty Start Date End Date Naina Lindsey MD [address] [place] [address] [place] [address] PCP - General 03/19/10 08/25/16 documented as of this encounter
--- OUTSIDE RECORDS SUMMARY | 2024-01-12 21:22 | XMS_ITS | Encounter Summary ---
Author Organization [facility] [place] [address] Care Team Providers Care Educational Director Name Role Phone Naina Lindsey MD Primary Care Provider [phone] Encounter Details Date Type Department Care Team (Late st Contact Info) Description 11/07/2010 Orders [place] [address] Bigg Dunbar MD [facility] [place] [address] Spasticity (Primary Dx) Social History Tobacco Use [...] PM EST Office [place] [address] Hollie Ambriz MD [facility] [place] [address] documented as of this encounter Visit Diagnoses Diagnosis Spasticity- Primary Abnormal involuntary movements documented in this encounter Care Teams Educational Director Relationship Specialty Start Date End Date Naina Lindsey MD [address] [place] [address] PCP - General 03/19/10 08/25/16 documented as of this encounter
--- OUTSIDE RECORDS SUMMARY | 2024-01-12 21:22 | XMS_ITS | Encounter Summary ---
Author Organization [facility] [place] [address] Care Team Providers Care Trash Collector Truck Driver Name Role Phone Naina Lindsey MD Primary Care Provider [phone] Reason for Referral * Occupational Therapy (Routine) - Complete - Patient Will Schedule External Appt Specialty Diagnoses / Procedures Referred By Contac t Referred To Contact Occupational Therapy Diagnoses Acquired dysplasia of hip Scoliosis Traumatic brain injury Yas Ramirez MD [facility] [place] [address] Referral ID Status Reason Start Date Expiration Date Visits Requested Visits Authorized [id number] Complete - Patient Will Schedule External Appt Evaluate and Treat 01/02/2011 07/01/2011 1 1 * Physical Therapy (Routine) - Complete - Patient Will Schedule External Appt Specialty Diagnoses / Procedures Referred By Contac t Referred To Contact Physical Therapy Diagnoses Acquired dysplasia of hip Scoliosis Traumatic brain injury Yas Ramirez MD [facility] [place] [address] Referral ID Status Reason Start Date Expiration Date Visits Requested Visits Authorized [id number] Complete - Patient Will Schedule External Appt Evaluate and Treat 01/02/2011 07/01/2011 1 1 Encounter Details Date Type Department Care Team (Late st Contact Info) Description 01/02/2011 Orders Only Orthopaedics at [place] [phone] Yas Ramirez MD [facility] DR ORTHOPAEDIC [place] [address] Acquired dysplasia of hip, bilateral; Scoliosis; Traumatic [...] PM EST Office Visit Infectious Disease at [address] Hollie Ambriz MD [facility] [address] INFECTIOUS [place] [address] Scheduled Referrals Name Type Priority Associated Diagnoses [...] consciousness documented in this encounter Care Teams Trash Collector Truck Driver Relationship Specialty Start Date End Date Naina Lindsey MD [address] [place] [address] [place] [address] PCP - General 03/19/10 08/25/16 documented as of this encounter
--- OUTSIDE RECORDS SUMMARY | 2024-01-12 21:22 | XMS_ITS | Encounter Summary ---
Author Organization [facility] [place] [address] Care Team Providers Care Vaccine Manager Name Role Phone Naina Lindsey MD Primary Care Provider [phone] Encounter Details Date Type Department Care Team (Late st Contact Info) Description 07/20/2012 Orders [place] [address] Bigg Dunbar MD [facility] [place] [address] Social History Tobacco Use Types Packs/Day Years [...] PM EST Office [place] [address] Hollie Ambriz MD [facility] DR INFECTIOUS DISEASE [place], [place] [address] documented as of this encounter Visit Diagnoses Not on filedocumented in this encounter Care Teams Vaccine Manager Relationship Specialty Start Date End Date Naina Lindsey MD [address] [place] [address] PCP - General 03/19/10 08/25/16 documented as of this encounter
--- OUTSIDE RECORDS SUMMARY | 2024-01-12 21:22 | XMS_ITS | Encounter Summary ---
Author Organization [facility] [place] [address] Care Team Providers Care Calciner Operator Helper Name Role Phone Naina Lindsey MD Primary Care Provider [phone] Encounter Details Date Type Department Care Team (Late st Contact Info) Description 07/12/2012 [place]phone [place] [phone] Aniket Heredia MD [facility] [place] [address] Social History Tobacco Use Types Packs/Day Years [...] PM EST Office Visit [place] [address] Hollie Ambriz MD [facility] [place] [address] documented as of this encounter Visit Diagnoses Not on filedocumented in this encounter Care Teams Calciner Operator Helper Relationship Specialty Start Date End Date Naina Lindsey MD [address] [place] [address] PCP - General 03/19/10 08/25/16 documented as of this encounter
--- OUTSIDE RECORDS SUMMARY | 2024-01-12 21:22 | XMS_ITS | Encounter Summary ---
Author Organization [facility] [place] [address] Care Team Providers Care Rehab Aid Name Role Phone Naina Lindsey MD Primary Care Provider [phone] Reason for Referral * Consultation (Routine) - Complete - Patient Will Schedule External Appt Specialty Diagnoses / Procedures Referred By Contac t Referred To Contact Orthotics Diagnoses Cerebral palsy Yas Ramirez MD [facility] [place] [address] Referral ID Status Reason Start Date Expiration Date Visits Requested Visits Authorized [id number] Complete - Patient Will Schedule External Appt Assume Subset of Care 09/30/2010 03/29/2011 1 1 * Consultation (Routine) - Complete - Patient Will Schedule External Appt Specialty Diagnoses / Procedures Referred By Contac t Referred To Contact Orthotics Diagnoses Cerebral palsy Yas Ramirez MD [facility] [place] [address] Referral ID Status Reason Start Date Expiration Date Visits Requested Visits Authorized [id number] Complete - Patient Will Schedule External Appt Assume Subset of Care 09/30/2010 03/29/2011 1 1 Reason for Visit * Reason Comments Developmental Delay serial casting Encounter Details Date Type Department Care Team (Late st Contact Info) Description 09/30/2010 9:00 AM EDT Follow-Up Orthopaedics at [facility] [place] [address] Yas Ramirez MD [facility] [place] [address] Cerebral palsy (Primary Dx) Discharge Disposition: Home [...] encounter Miscellaneous Notes * Miscellaneous - Delbert Glue Line Operator - 10/31/2010 9:10 AM EDT documented in this encounter Plan of Treatment Upcoming Encounters Date Type Department Care Team (Late st Contact Info) Description 06/02/2024 12:30 PM EST Office [place] [address] Hollie Ambriz MD [facility] DR INFECTIOUS DISEASE [place] [id number] Scheduled Referrals Name Type Priority Associated Diagnoses Orde r Schedule REFERRAL FOR ORTHOTICS Outpatient Referral Routine Cerebral palsy Ordered: 09/30/2010 REFERRAL FOR ORTHOTICS Outpatient Referral Routine Cerebral palsy Ordered: 09/30/2010 documented as of this encounter Visit Diagnoses Diagnosis Cerebral palsy- Primary Infantile cerebral palsy, unspecified documented in this encounter Care Teams Rehab Aid Relationship Specialty Start Date End Date Naina Lindsey MD [address] [place] [address] PCP - General 03/19/10 08/25/16 documented as of this encounter
--- OUTSIDE RECORDS SUMMARY | 2024-01-12 21:22 | XMS_ITS | Encounter Summary ---
[place] [address] Care Team Providers Care Sustainable Design Coordinator Name Role Phone Naina Lindsey MD Primary Care Provider [phone] Reason for Visit * Reason Onset Date Comments Other 03/14/2011 Encounter Details Date Type Department Care Team (Late st Contact Info) Description 03/14/2011 Telephone [place] [address] Mony Fierro RN Other Social History Tobacco [...] PM EST Office [place] [address] Hollie Ambriz MD [facility] [place] [address] documented as of this encounter Visit Diagnoses Not on filedocumented in this encounter Care Teams Sustainable Design Coordinator Relationship Specialty Start Date End Date Naina Lindsey MD [address] [place] [address] [place] [address] PCP - General 03/19/10 08/25/16 documented as of this encounter
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
--- OUTSIDE RECORDS SUMMARY | 2024-01-12 21:22 | XMS_ITS | Encounter Summary ---
Author Organization [facility] [place] [address] Care Team Providers Care Septic Technician Name Role Phone Naina Lindsey MD Primary Care Provider [phone] Encounter Details Date Type Department Care Team (Late st Contact Info) Description 08/19/2010 Orders [place] [address] Lucho Fields MD [facility] [address] [place] [address] Social History Tobacco Use Types Packs/Day Years [...] [place] [address] Hollie Ambriz MD [facility] [place] [address] documented as of this encounter Visit Diagnoses Not on filedocumented in this encounter Care Teams Septic Technician Relationship Specialty Start Date End Date Naina [place] [address] PCP - General 03/19/10 08/25/16 documented as of this encounter
--- OUTSIDE RECORDS SUMMARY | 2024-01-12 21:22 | XMS_ITS | Encounter Summary ---
[place] [address] Care Team Providers Care Retort Press Operator Name Role Phone Naina Lindsey MD Primary Care Provider [phone] Encounter Details Date Type Department Care Team (Late st Contact Info) Description 02/03/2011 Orders [place] [address] Yas Ramirez MD [facility] DR [place] [address] Acquired dysplasia of hip, bilateral; Scoliosis; Traumatic [...] PM EST Office Visit [place] [address] Hollie Ambriz MD [facility] [place] [address] documented as of this encounter Visit Diagnoses Diagnosis Acquired dysplasia of hip, bilateral Other acquired deformities of hip Scoliosis Scoliosis (and kyphoscoliosis), idiopathic 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
--- OUTSIDE RECORDS SUMMARY | 2024-01-12 21:22 | XMS_ITS | Encounter Summary ---
Author Organization [facility] [place] [address] Care Team Providers Care Drill Operator Automatic Name Role Phone Naina Lindsey MD Primary Care Provider [phone] Encounter Details Date Type Department Care Team (Late st Contact Info) Description 11/04/2010 4:00 PM EDT Office Visit [place] [address] Gloria López, RVT Acquired dysplasia of hip, [...] Office Visit [place] [address] Hollie Ambriz MD [facility] [place] [address] documented as of this encounter Procedures Procedure Name Priority Date/Time Associated Diagnosis Comments DUPLEX FOR DVT, LEG, UNILAT Routine 11/04/2010 3:55 PM EDT Acquired dysplasia of hip, bilateral Edema leg documented in this encounter Results * Duplex for DVT, Leg, Unilat (11/04/2010 3:55 PM EDT) VB Text Report Department: Vascular Surgery Lab Patient: [id number] (TANA SHELTON) CPT Code: 55286 ICD-9: 729.81 Referring Physician: BARRERA OLIVER Indication: [...] Oliver MD VASCULAR ORDERABLES Performing Organization Address City/State/[facility] Co de Phone Number [facility] documented in this encounter Visit Diagnoses Diagnosis Acquired dysplasia of hip, bilateral Other acquired deformities of hip Edema leg Edema documented in this encounter Care Teams Drill Operator Automatic Relationship Specialty Start Date End Date Naina Lindsey MD [address] [place] [address] [place] [address] PCP - General 03/19/10 08/25/16 documented as of this encounter
--- OUTSIDE RECORDS SUMMARY | 2024-01-12 21:22 | XMS_ITS | Encounter Summary ---
Author Organization [facility] [place] [address] Care Team Providers Care Squeak Rattle And Leak Repairer Name Role Phone Naina Lindsey MD Primary Care Provider [phone] Encounter Details Date Type Department Care Team (Late st Contact Info) Description 09/27/2010 Orders [place] [phone] Yas Ramirez MD [facility] [place] [address] Muscle spasticity; Acquired dysplasia of hip, bilateral; [...] PM EST Office [place] [address] Hollie Ambriz MD [facility] [place] [address] documented as of this encounter Visit Diagnoses Diagnosis Muscle spasticity Spasm of muscle Acquired dysplasia of hip, bilateral Other acquired deformities of hip 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
--- OUTSIDE RECORDS SUMMARY | 2024-01-12 21:22 | XMS_ITS | Encounter Summary ---
Author Organization [facility] Address [facility] Benjamin [facility] [place] [address] Care Team Providers Care Computer Security Manager Name Role Phone Naina Lindsey MD Primary Care Provider [phone] Reason for Visit * Reason Comments Foot Swelling Encounter Details Date Type Department Care Team (Late st Contact Info) Description 11/04/2010 3:05 PM EDT [place] [phone] Barrera Oliver MD [facility] [place] [address] Acquired dysplasia of hip, bilateral; Edema leg; [...] will be constituted in a cast and senior engineering tech with whom I spoke did not [...] Office [place] [address] Hollie Ambriz MD 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
--- OUTSIDE RECORDS SUMMARY | 2024-01-12 21:22 | XMS_ITS | Encounter Summary ---
Author Organization [place] [address] Care Team Providers Care Infantry Weapons Crewmember Name Role Phone Naina Lindsey MD Primary Care Provider [phone] Reason for Visit * Reason Onset Date Comments Blindness 12/27/2011 Encounter Details Date Type Department Care Team (Late st Contact Info) Description 12/27/2011 [place] [phone] Aquiles Smith MD [facility] [place] [address] Blindness Social History Tobacco Use Types Packs/Day [...] PM EST Office [place] [address] Hollie Ambriz MD [facility] [place] [address] documented as of this encounter Visit Diagnoses Not on filedocumented in this encounter Care Teams Infantry Weapons Crewmember Relationship Specialty Start Date End Date Naina Lindsey MD [address] [place] [address] [place] [address] PCP - General 03/19/10 08/25/16 documented as of this encounter
--- OUTSIDE RECORDS SUMMARY | 2024-01-12 21:22 | XMS_ITS | Encounter Summary ---
Author Organization [facility] [place] [address] Care Team Providers Care Latex Dipper Name Role Phone Naina Lindsey MD Primary Care Provider [phone] Reason for Visit * Reason Comments Cerebral Palsy Encounter Details Date Type Department Care Team (Late st Contact Info) Description 09/05/2010 1:00 PM EDT Office [place] [phone] CLINIC, DR [place] Muscle spasticity (Primary Dx) [...] PM EST Office [place] [address] Hollie Ambriz MD [facility] [place] [address] documented as of this encounter Visit Diagnoses Diagnosis Muscle spasticity- Primary Spasm of muscle documented in this encounter Care Teams Latex Dipper Relationship Specialty Start Date End Date Naina Lindsey MD [address] [place] [address] PCP - General 03/19/10 08/25/16 documented as of this encounter
--- OUTSIDE RECORDS SUMMARY | 2024-01-12 21:22 | XMS_ITS | Encounter Summary ---
Author Organization [facility] Address [facility] [place] [address] Care Team Providers Care High School Business Teacher Name Role Phone Naina Lindsey MD Primary Care Provider [phone] Encounter Details Date Type Department Care Team (Latest Contact Info) Description 09/24/2010 1:20 PM EDT - 09/24/2010 11:59 PM EDT Hospital Encounter XRay at [address] [place] [address] Muscle spasticity Social History Tobacco Use Types [...] PM EST Office [place] [address] Hollie Ambriz MD [facility] [place] [address] documented as of this encounter Procedures Procedure [...] muscle documented in this encounter Care Teams High School Business Teacher Relationship Specialty Start Date End Date Naina Lindsey MD [address] [place] [address] PCP - General 03/19/10 08/25/16 documented as of this encounter
--- OUTSIDE RECORDS SUMMARY | 2024-01-12 21:22 | XMS_ITS | Encounter Summary ---
Author Organization [facility] Benjamin [place] [address] Care Team Providers Care Skid Strapper Name Role Phone Naina Lindsye MD Primary Care Provider [phone] Encounter Details Date Type Department Care Team (Late st Contact Info) Description 07/08/2012 Orders Only [place] [address] Bigg Dunbar MD [facility] [place] [place] [address] Spasticity (Primary Dx) Social History Tobacco Use [...] EST Office Visit [place] [address] Hollie Ambriz MD [facility] [place] [address] documented as of this encounter Visit Diagnoses Diagnosis Spasticity- Primary Abnormal involuntary movements documented in this encounter Care Teams Skid Strapper Relationship Specialty Start Date End Date Naina Lindsey MD [address] [place] [address] [place] [address] PCP - General 03/19/10 08/25/16 documented as of this encounter
--- OUTSIDE RECORDS SUMMARY | 2024-01-12 21:22 | XMS_ITS | Encounter Summary ---
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 Zaldivar Principal Technical Specialist: Dr. Dillon Reason for Reprogramming: Refill/weaning [...] instilled into the pump according to the federal judge's directions without difficulty. There was no evidence [...] medication. Nitin Zaldivar MD Fellow, Pain Medicine 5460 documented in this encounter Miscellaneous Notes * Miscellaneous - Delbert, Computer Graphic Designer - 05/01/2011 2:01 PM EST documented in this encounter Plan of Treatment Upcoming Encounters Date Type Department Care Team (Late st Contact Info) Description 06/02/2024 12:30 PM EST Office [place] [address] Hollie Ambriz MD [facility] [place] [address] documented as of this encounter Visit Diagnoses [...] each documented in this encounter Care Teams Dietician Relationship Specialty Start Date End Date Naina Lindsey MD [address] [place] [address] PCP - General 03/19/10 08/25/16 documented as of this encounter
--- OUTSIDE RECORDS SUMMARY | 2024-01-12 21:22 | XMS_ITS | Encounter Summary ---
[place] [address] Care Team Providers Care Driver Recruiter Name Role Phone Naina Lindsey MD Primary Care Provider [phone] Encounter Details Date Type Department Care Team (Latest Contact Info) Description 01/12/2012 11:15 AM EDT Procedure [place] [address] Bigg Dunbar MD [facility] [place] [place] [address] Abnormal involuntary movements (Primary Dx) Discharge Disposition: [...] entire procedure. Bigg Dunbar MD, MS * Fahrana Lara - 01/12/2012 12:43 PM EDT Pump refill. Please see procedure note. documented in this encounter Procedure Notes * Farhana Lara - 01/12/2012 12:43 PM EDTAssociated Order(s): INTRATHECAL PUMP REFILL Pre-Procedure Diagnose(s): Abnormal involuntary movements(781.0) Pain Medicine Intrathecal Pump Reprogramming or Adjustment Tana S Dirk [id number] Date of Programming/Adjustment: January 12, 2012 Primary Nephrologist: Dr. Lara Concrete Finisher Apprentice: Dr. Dunbar Reason for Reprogramming or Adjustment: Refill Rate Adjustment: No Diagnosis: Spasticity Concomitant Medical Problems: Telemetry Pre-programming Reading: Drug: Baclofen Concentration: 1000 mcg/ml Dose Delivery per day: 195.1 mcg/day Infusion Mode: simple continuous Telemetry Post-programming Reading: Drug: Baclofen Concentration: 1000 mcg/ml Dose Delivery per day: 195.1 mcg/day Infusion Mode: simple continuous Pump Capacity: [] 20 ml [xxx] 40 ml Expected [place] Volume this visit: 4 ml Actual [place] Volume this visit: 5 ml Medication or [...] instilled into the pump according to the test desk supervisor's directions without difficulty. There was no [...] Farhana Lara MD Fellow, Pain Medicine Pager [phone] documented in this encounter Miscellaneous Notes * Miscellaneous - Delbert, Tailings Worker - 01/15/2012 4:53 PM EDT documented in this encounter Plan of Treatment Upcoming Encounters Date Type Department Care Team (Late st Contact Info) Description 06/02/2024 12:30 PM EST Office Visit Infectious Disease at [facility] [place] [address] Hollie Ambriz MD [facility] [place] [address] documented as of this encounter Procedures Procedure Name Priority Date/Time Associated Diagnosis Comments INTRATHECAL PUMP REFILL Routine 01/12/2012 12:44 PM EDT Abnormal involuntary movements documented in this encounter Results * INTRATHECAL PUMP REFILL (01/12/2012 12:44 PM EDT) Narrative Farhana Lara - 01/12/2012 12:44 PM EDT Pain Medicine Intrathecal Pump Reprogramming or Adjustment Tana Cavazos [id number] Date of Programming/Adjustment: January 12, 2012 Primary Nephrologist: ??Dr. Lara ?? Concrete Finisher Apprentice: ??Dr. Dunbar Reason for Reprogramming or Adjustment: [...] [] 20 ml [xxx] 40 ml Expected [place] Volume this visit: 4 ml Actual [place] Volume this visit: 5 ml Medication or [...] drapes were applied as provided with the Kalibrrtronic refill kit. A 22 gauge Persaud non-coring [...] instilled into the pump according to the test desk supervisor's directions without difficulty. There was no [...] Farhana Lara MD Fellow, Pain Medicine Pager [phone] Procedure Note Farhana Lara - 01/12/2012 12:43 PM EDT Pain Medicine Intrathecal Pump Reprogramming or Adjustment Tana Hayes Dirk [id number] Date of Programming/Adjustment: January 12, 2012 Primary Nephrologist: Dr. Lara Concrete Finisher Apprentice: Dr. Dunbar Reason for Reprogramming or Adjustment: Refill Rate Adjustment: No Diagnosis: Spasticity Concomitant Medical Problems: Telemetry Pre-programming Reading: Drug: Baclofen Concentration: 1000 mcg/ml Dose Delivery per day: 195.1 mcg/day Infusion Mode: simple continuous Telemetry Post-programming Reading: Drug: Baclofen Concentration: 1000 mcg/ml Dose Delivery per day: 195.1 mcg/day Infusion Mode: simple continuous Pump Capacity: [] 20 ml [xxx] 40 ml Expected [place] Volume this visit: 4 ml Actual [place] Volume this visit: 5 ml Medication or [...] Sterile drapes were applied as provided withthe Kalibrrtronic refill kit. A 22 gauge Persaud non-coring [...] Farhana Lara MD Fellow, Pain Medicine Pager [phone] Bigg Dunbar MD PROCEDURE/MINOR S URGICAL ORDERABLES [...] and Dose: Baclofen 1000 mcg/ml solution Lot [id number] Given 01/12/2012 12:38 PM EDT 1 each documented in this encounter Care Teams Driver Recruiter Relationship Specialty Start Date End Date Naina Lindsey MD [address] [facility] [place] [address] PCP - General 03/19/10 08/25/16 documented as of this encounter
--- OUTSIDE RECORDS SUMMARY | 2024-01-12 21:22 | XMS_ITS | Encounter Summary ---
Author Organization [facility] [place] [address] Care Team Providers Care Classification Clerk Name Role Phone Naina Lindsey MD Primary Care Provider [phone] Encounter Details Date Type Department Care Team (Late st Contact Info) Description 04/15/2011 Orders [place] [address] Margaux Godfrey MD [facility] [address] PAIN CLINIC [place], [place] [id number] Spasticity (Primary Dx) Social History Tobacco Use [...] Office [place] [address] Hollie Ambriz MD [facility] [place] [address] documented as of this encounter Visit Diagnoses Diagnosis Spasticity- Primary Abnormal involuntary movements documented in this encounter Care Teams Classification Clerk Relationship Specialty Start Date End Date Naina Lindsey MD [address] [place] [address] PCP - General 03/19/10 08/25/16 documented as of this encounter
--- OUTSIDE RECORDS SUMMARY | 2024-01-12 21:22 | XMS_ITS | Encounter Summary ---
Author Organization [facility] [place] [place] [address] Care Team Providers Care Director Erp Name Role Phone Naina Lindsey MD Primary Care Provider [phone] Encounter Details Date Type Department Care Team (Late st Contact Info) Description 07/08/2012 Orders [place] [address] Aniket Heredia MD [facility] [place] [address] Spasticity (Primary Dx) Social History [...] EST Office Visit [place] [address] Hollie Ambriz MD [facility] [place] [address] documented as of this encounter Visit Diagnoses Diagnosis Spasticity- Primary Abnormal involuntary movements documented in this encounter Care Teams Director Erp Relationship Specialty Start Date End Date Naina Lindsey MD [address] [place] [address] PCP - General 03/19/10 08/25/16 documented as of this encounter
--- OUTSIDE RECORDS SUMMARY | 2024-01-12 21:22 | XMS_ITS | Encounter Summary ---
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 Marino Mold Filler And Drainer: Chelsea Alva Reason for Reprogramming or Adjustment: Refill Rate Adjustment: No Diagnosis: Spasticity Concomitant Medical Problems: Telemetry Pre-programming Reading: Drug: Baclofen Concentration: 1000 mcg/ml Dose Delivery per day: 195.1 mcg/day Infusion Mode: simple continuous Telemetry Post-programming Reading: Drug: Baclofen Concentration: 1000 mcg/ml (RX #[id number], discard date 08/28/12) Dose Delivery per day: 195.1 mcg/day Infusion Mode: simple continuous Pump Capacity: [] 20 ml [xxx] 40 ml Expected [place] Volume this visit: 2.6 ml Actual [place] Volume this visit: 3.5 ml Medication or [...] drapes were applied as provided with the eBuildertronic refill kit. A 22 gauge Persaud non-coring [...] instilled into the pump according to the business partner's directions without difficulty. There was no evidence [...] PM EST Office Visit [place] [address] Hollie Ambriz MD [facility] [place] [address] documented as of this encounter Procedures Procedure [...] Intrathecal Pump Reprogramming or Adjustment Tana Cavazos [id number] Date of Programming/Adjustment: 07/22/12 Primary General Labor Forklift Operator: ??Dr. Marino Mold Filler And Drainer: ??Chelsea Alva Reason for Reprogramming or Adjustment: Refill Rate Adjustment: No Diagnosis: Spasticity Concomitant Medical Problems: ?? Telemetry Pre-programming Reading: ?? Drug: Baclofen Concentration: 1000 mcg/ml Dose Delivery per day: 195.1 mcg/day Infusion Mode: ?? simple continuous ?? Telemetry Post-programming Reading: ?? Drug: Baclofen Concentration: 1000 mcg/ml (RX #[id number], discard date 08/28/12) Dose Delivery per day: 195.1 mcg/day Infusion Mode: ?? simple continuous ? Pump Capacity: [] 20 ml [xxx] 40 ml Expected [place] Volume this visit: 2.6 ml Actual [place] Volume this visit: 3.5 ml Medication or [...] drapes were applied as provided with the eBuildertronic refill kit. A 22 gauge Persaud non-coring [...] instilled into the pump according to the business partner's directions without difficulty. There was no evidence [...] Intrathecal Pump Reprogramming or Adjustment Tana Cavazos [id number] Date of Programming/Adjustment: 07/22/12 Primary General Labor Forklift Operator: Dr. Marino Mold Filler And Drainer: Chelsea Alva Reason for Reprogramming or Adjustment: Refill Rate Adjustment: No Diagnosis: Spasticity Concomitant Medical Problems: Telemetry Pre-programming Reading: Drug: Baclofen Concentration: 1000 mcg/ml Dose Delivery per day: 195.1 mcg/day Infusion Mode: simple continuous Telemetry Post-programming Reading: Drug: Baclofen Concentration: 1000 mcg/ml (RX #[id number], discard date 08/28/12) Dose Delivery per day: 195.1 mcg/day Infusion Mode: simple continuous Pump Capacity: [] 20 ml [xxx] 40 ml Expected [place] Volume this visit: 2.6 ml Actual [place] Volume this visit: 3.5 ml Medication or [...] Sterile drapes were applied as provided withthe Cortica refill kit. A 22 gauge Persaud non-coring [...] Baclofen 1000 mcg/ml - 40 ml - RX#[id number] Given 07/22/2012 9:33 AM EDT 1 each documented in this encounter Care Teams Senior C Developer Relationship Specialty Start Date End Date Naina Lindsey MD [address] [place] [address] PCP - General 03/19/10 08/25/16 documented as of this encounter
--- OUTSIDE RECORDS SUMMARY | 2024-01-12 21:22 | XMS_ITS | Encounter Summary ---
Author Organization [facility] Address [facility] [place] [address] Care Team Providers Care Trampoline Team Coach Name Role Phone Naina Lindsey MD Primary Care Provider Encounter Details Date Type Department Care Team (Latest Contact Info) Description 12/16/2011 12:15 PM EDT - 12/16/2011 11:59 PM EDT Hospital Encounter XRay at [address] [place] [place] [address] CLINIC, Joesph Sheikh Jr., MD [facility] [place] [address] Aquiles Smith MD [facility] [place] [address] Scoliosis Discharge Disposition: Home Social History Tobacco [...] PM EST Office [place] [address] Hollie Ambriz MD [facility] [place] [address] documented as of this encounter Procedures Procedure [...] idiopathic documented in this encounter Care Teams Trampoline Team Coach Relationship Specialty Start Date End Date Naina Lindsey MD [address] [place] [address] [place] [address] PCP - General 03/19/10 08/25/16 documented as of this encounter
--- OUTSIDE RECORDS SUMMARY | 2024-01-12 21:22 | XMS_ITS | Encounter Summary ---
Author Organization [facility] [place] [address] Care Team Providers Care Used Car Sales Supervisor Name Role Phone Naina Lindsey MD Primary Care Provider [phone] Reason for Referral * Physical Therapy (Routine) - Complete - Patient Will Schedule External Appt Specialty Diagnoses / Procedures Referred By Karlo t Referred To Contact Physical Therapy Diagnoses Developmental delay Yas Ramirez MD [facility] [place] [address] Referral ID Status Reason Start Date Expiration Date Visits Requested Visits Authorized [id number] Complete - Patient Will Schedule External Appt Evaluate and Treat 09/24/2010 03/23/2011 1 1 Reason for Visit * Reason Comments Follow Up Surgery spica cast Encounter Details Date Type Department Care Team (Late st Contact Info) Description 09/24/2010 2:20 PM EDT [place] [address] Yas Ramirez MD [facility] [place] [address] Developmental delay (Primary Dx); Traumatic brain injury [...] PM EST Office [place] [address] Hollie Ambriz MD [facility] [place] [address] Scheduled Referrals Name Type Priority Associated Diagnoses [...] hip documented in this encounter Care Teams Used Car Sales Supervisor Relationship Specialty Start Date End Date Naina Lindsey MD [address] [place] [address] [place] [address] PCP - General 03/19/10 08/25/16 documented as of this encounter
--- OUTSIDE RECORDS SUMMARY | 2024-01-12 21:22 | XMS_ITS | Encounter Summary ---
Author Organization [facility] [place] [address] Care Team Providers Care Marketing Clerk Name Role Phone Naina Lindsey MD Primary Care Provider [phone] Reason for Referral * Consultation (Routine) - Complete - Patient Will Schedule External Appt Specialty Diagnoses / Procedures Referred By Contac t Referred To Contact Orthotics Diagnoses Edema leg Scoliosis Acquired dysplasia of hip Traumatic brain injury Yas Ramirez MD [facility] [place] [address] Referral ID Status Reason Start Date Expiration Date Visits Requested Visits Authorized [id number] Complete - Patient Will Schedule External Appt Consult, Test & Treat 1 10/13/2011 1 1 Encounter Details Date Type Department Care Team (Late st Contact Info) Description 04/16/2011 [place] [address] Yas Ramirez MD [facility] [place] [address] Edema leg; Scoliosis; Acquired dysplasia of hip, [...] PM EST Office [place] [address] Hollie Ambriz MD [facility] [place] [address] Scheduled Referrals Name Type Priority Associated Diagnoses [...] consciousness documented in this encounter Care Teams Marketing Clerk Relationship Specialty Start Date End Date Naina Lindsey MD [address] [place] [address] PCP - General 03/19/10 08/25/16 documented as of this encounter
--- OUTSIDE RECORDS SUMMARY | 2024-01-12 21:22 | XMS_ITS | Encounter Summary ---
Author Organization [facility] [place] [address] Care Team Providers Care Chief Controller Tower Name Role Phone Naina Lindsey MD Primary Care Provider Reason for Referral * Consultation (Routine) - Closed Specialty Diagnoses / Procedures Referred By Contac t Referred To Contact Pain Management Diagnoses Scoliosis Jamar Dodd III, MD [facility] [place] [address] [facility] [address] [place] [address] Referral ID Status Reason Start Date Expiration Date V isits Requested Visits Authorized [id number] Closed Consult Only 12/16/2011 06/13/2012 1 1 * Consultation (Routine) - Complete - Unable to Contact Patient Specialty Diagnoses / Procedures Referred By Contac t Referred To Contact Pediatrics Diagnoses Scoliosis pre operative evaluation and to establish contact for future surgery at [facility] per Jamar Whiting III, MD [facility] [place] [address] [facility] [address] [place] [phone] Referral ID Status Reason Start Date Expiration Date Visits Requested Visits Authorized [id number] Complete - Unable to Contact Patient Consult Only 12/16/2011 06/13/2012 1 1 * Surgical (Routine) - Closed by system - Referral Specialty Diagnoses / Procedures Referred By Contac t Referred To Contact Anesthesiology Diagnoses Scoliosis Aquiles Smith MD [facility] [place] [address] [place] [address] Referral ID Status Reason Start Date Expiration Date Visits Requested Visits Authorized [id number] Closed by system - Referral Consult, Test & Treat 12/16/2011 06/13/2012 1 1 Reason for Visit * Reason Comments Follow Up Surgery Bilat. Hip DOS 2010 Encounter Details Date Type Department Care Team (Late st Contact Info) Description 12/16/2011 1:30 PM EDT Office Visit Orthopaedics at [place] [phone] Aquiles Smith MD [facility] [place] [address] Scoliosis (Primary Dx) Discharge Disposition: Home Social [...] PM EST Office Visit [place] [address] Hollie Ambriz MD [facility] [place] [address] Scheduled Referrals Name Type Priority Associated Diagnoses Order Schedule REFERRAL TO GENERAL ANESTHESIOLOGY Outpatient Referral Routine Scoliosis Ordered: 12/16/2011 REFERRAL TO PEDIATRICS Outpatient Referral Routine Scoliosis Ordered: 12/16/2011 REFERRAL TO PAIN CLINIC Outpatient Referral Routine Scoliosis Ordered: 12/16/2011 documented as of this encounter Visit Diagnoses Diagnosis Scoliosis- Primary Scoliosis (and kyphoscoliosis), idiopathic documented in this encounter Care Teams Chief Controller Tower Relationship Specialty Start Date End Date Naina [place] MD [address] [place] [address] PCP - General 03/19/10 08/25/16 documented as of this encounter
--- OUTSIDE RECORDS SUMMARY | 2024-01-12 21:23 | XMS_ITS | Encounter Summary ---
Author Organization [facility] Address [address] [place] [address] Care Team Providers Care Felt Pad Cutter Name Role Phone César Robert MD, Naina Primary Care Provider [phone] Encounter Details Date Type Department Care Team (Latest Contact Info) Description 05/29/2015 17:07 EST - 05/29/2015 23:59 EST Hospital Encounter [address] [address] Naina Lindsey MD [address] [place], [place] [address] Discharge Disposition: Home or Self Care Social [...] on filedocumented in this encounter Care Teams Felt Pad Cutter Relationship Specialty Start Date End Date Naina [place] MD [address] [place] [address] PCP - General 02/13/15 documented as of this encounter
--- OUTSIDE RECORDS SUMMARY | 2024-01-12 21:23 | XMS_ITS | Encounter Summary ---
Author Organization [facility] Address [address] [place] [address] Care Team Providers Care Collet Gluer Name Role Phone César Robert MD, Naina Primary Care Provider [phone] Reason for Visit * Reason Onset Date Comments Appointment Related 05/14/2015 Encounter Details Date Type Department Care Team (Late st Contact Info) Description 05/14/2015 Telephone [facility] Rehabilitation Therapy - [address] [address] Therapy, Outpatient, Appointment Related Social History Tobacco [...] on filedocumented in this encounter Care Teams Collet Gluer Relationship Specialty Start Date End Date Naina [place] [address] PCP - General 02/13/15 documented as of this encounter
--- OUTSIDE RECORDS SUMMARY | 2024-01-12 21:23 | XMS_ITS | Encounter Summary ---
Author Organization [facility] Address [address] [place] [address] Care Team Providers Care Traffic Or System Dispatcher Name Role Phone César Robert MD, Naina Primary Care Provider [phone] Reason for Visit * Reason Onset Date Comments Appointment Related 03/03/2019 Encounter Details Date Type Department Care Team (Late st Contact Info) Description 03/03/2019 Telephone [facility] Rehabilitation Therapy - [address] [address] Therapy, Physical Appointment Related Social History Tobacco [...] for the wheelchair clinic appointment here at [facility] from 02-05. GRETCHEN DIETZ MA 03/03/2019 8:43 documented in this encounter Plan of Treatment Not on file documented as of this encounter Visit Diagnoses Not on filedocumented in this encounter Care Teams Traffic Or System Dispatcher Relationship Specialty Start Date End Date Naina Lindsey MD [address] [place] [address] PCP - General 02/13/15 documented as of this encounter
--- OUTSIDE RECORDS SUMMARY | 2024-01-12 21:23 | XMS_ITS | Encounter Summary ---
Author Organization [facility] Address [address] [place] [address] Care Team Providers Care Newspaper Journalist Name Role Phone César Robert MD, Naina Primary Care Provider [phone] Reason for Visit * Reason Onset Date Comments Appointment Related 11/04/2018 Encounter Details Date Type Department Care Team (Late st Contact Info) Description 11/04/2018 Telephone [facility] Rehabilitation Therapy - [address] [phone] Therapist, Physical, PT Appointment Related Social History [...] on filedocumented in this encounter Care Teams Newspaper Journalist Relationship Specialty Start Date End Date Naina Lindsey MD [address] [place] [address] [place], [place] [address] PCP - General 02/13/15 documented as of this encounter
--- OUTSIDE RECORDS SUMMARY | 2024-01-12 21:23 | XMS_ITS | Encounter Summary ---
Author Organization [facility] Address [address] [place] [address] Care Team Providers Care Brick Stacker Name Role Phone César Robert MD, Naina Primary Care Provider [phone] Reason for Visit * Reason Onset Date Comments Appointment Related 04/06/2019 Encounter Details Date Type Department Care Team (Late st Contact Info) Description 04/06/2019 Telephone [facility] Rehabilitation Therapy - [address] [address] Therapy, Physical Appointment Related Social History Tobacco [...] of May 04 from - here at [facility]. This is a re-schedule from today as the vendor was ill. Gretchen Dietz MA 04/06/2019 11:26 documented in this encounter Plan of Treatment Not on file documented as of this encounter Visit Diagnoses Not on filedocumented in this encounter Care Teams Brick Stacker Relationship Specialty Start Date End Date Naina Lindsey MD [address] [place], [place] [address] PCP - General 02/13/15 documented as of this encounter
--- OUTSIDE RECORDS SUMMARY | 2024-01-12 21:23 | XMS_ITS | Encounter Summary ---
Author Organization [facility] [place] [address] Care Team Providers Care Stemming Machine Operator Name Role Phone Naina Lindsey MD Primary Care Provider [phone] Encounter Details Date Type Department Care Team (Late st Contact Info) Description 06/12/2010 9:30 AM EST [place] [phone] Yas Ramirez MD [facility] [place] [address] Discharge Disposition: Home Social History Tobacco Use [...] PM EST Office [place] [address] Hollie Ambriz MD [facility] [place] [address] documented as of this encounter Visit Diagnoses Not on filedocumented in this encounter Care Teams Stemming Machine Operator Relationship Specialty Start Date End Date Naina Lindsey MD [address] [place] [address] PCP - General 03/19/10 08/25/16 documented as of this encounter
--- OUTSIDE RECORDS SUMMARY | 2024-01-12 21:23 | XMS_ITS | Encounter Summary ---
Author Organization [facility] Address [facility] [place] [address] Care Team Providers Care Shipping Coordinator Name Role Phone Naina Lindsey MD Primary Care Provider [phone] Encounter Details Date Type Department Care Team (Late st Contact Info) Description 06/12/2010 9:00 AM EST Procedure visit [address] [address] Social History Tobacco Use Types Packs/Day Years [...] PM EST Office [place] [address] Hollie Ambriz MD [facility] [place] [address] documented as of this encounter Visit Diagnoses Not on filedocumented in this encounter Care Teams Shipping Coordinator Relationship Specialty Start Date End Date Naina Lindsey MD [address] [place] [address] [place], [place] [id number] PCP - General 03/19/10 08/25/16 documented as of this encounter
--- OUTSIDE RECORDS SUMMARY | 2024-01-12 21:23 | XMS_ITS | Encounter Summary ---
Author Organization [facility] Address [address] [place] [address] Care Team Providers Care Colorer Name Role Phone César Robert MD, Naina Primary Care Provider [phone] Reason for Visit * Reason Onset Date Comments DME 08/11/2019 Encounter Details Date Type Department Care Team (Late st Contact Info) Description 08/11/2019 Telephone [facility] Rehabilitation Therapy - [facility] [address] [place], [place] [address] Candelaria Jaquez, ELVIRA [address] [place] [address] DME Social History Tobacco Use [...] on filedocumented in this encounter Care Teams Colorer Relationship Specialty Start Date End Date Naina Lindsey MD [address] [place] [address] PCP - General 02/13/15 documented as of this encounter
--- OUTSIDE RECORDS SUMMARY | 2024-01-12 21:23 | XMS_ITS | Encounter Summary ---
Author Organization [facility] Address [address] [place] [address] Care Team Providers Care Physical Therapy Technician Name Role Phone César Robert MD, Naina Primary Care Provider [phone] Encounter Details Date Type Department Care Team (Latest Contact Info) Description 11/30/2018 12:49 EDT - 11/30/2018 23:59 EDT Hospital Encounter [address] [address] Lorna Bal, TAPE DECK INSTALLER [address] [facility] [address] [place] [phone] Discharge Disposition: Auto Discharge Social History Tobacco [...] on filedocumented in this encounter Care Teams Physical Therapy Technician Relationship Specialty Start Date End Date Naina Lindsey MD [address] [place] [address] PCP - General 02/13/15 documented as of this encounter
--- OUTSIDE RECORDS SUMMARY | 2024-01-12 21:23 | XMS_ITS | Encounter Summary ---
Author Organization [facility] Address [address] [place] [address] Care Team Providers Care Sales Secretary Name Role Phone César Robert MD, Naina Primary Care Provider [phone] Reason for Visit * Reason Onset Date Comments Appointment Related 10/31/2019 Encounter Details Date Type Department Care Team (Late st Contact Info) Description 10/31/2019 Telephone [facility] Rehabilitation Therapy - [address] [address] Therapy, Physical Appointment Related Social History Tobacco [...] occur in two business days time at [facility].. Gretchen Dietz MA 10/31/2019 14:41 documented in this encounter Plan of Treatment Not on file documented as of this encounter Visit Diagnoses Not on filedocumented in this encounter Care Teams Sales Secretary Relationship Specialty Start Date End Date Naina Lindsey MD [address] [place] [address] PCP - General 02/13/15 documented as of this encounter
--- OUTSIDE RECORDS SUMMARY | 2024-01-12 21:23 | XMS_ITS | Encounter Summary ---
Author Organization [facility] Address [address] [place] [address] Care Team Providers Care Clarifying Plant Operator Name Role Phone César Robert MD, Naina Primary Care Provider Encounter Details Date Type Department Care Team (Latest Contact Info) Description 04/03/2015 9:31 EST - 04/03/2015 23:59 EST Hospital Encounter [address] [address] Naina Lindsey MD [address] [place], [place] [id number] Discharge Disposition: Home or Self Care Social [...] Code Departure Means Destination Home or Self Residential documented in this encounter Plan of Treatment Not on file documented as of this encounter Visit Diagnoses Not on filedocumented in this encounter Care Teams Clarifying Plant Operator Relationship Specialty Start Date End Date Naina Lindsey MD [address] [place] [address] PCP - General 02/13/15 documented as of this encounter
--- OUTSIDE RECORDS SUMMARY | 2024-01-12 21:23 | XMS_ITS | Encounter Summary ---
Author Organization [facility] Address [address] [place] [address] Care Team Providers Care Derrick Boat Lever Operator Name Role Phone César Robert MD, Naina Primary Care Provider [phone] Reason for Visit * Reason Onset Date Comments Appointment Related 09/29/2019 Encounter Details Date Type Department Care Team (Late st Contact Info) Description 09/29/2019 Telephone [facility] Rehabilitation Therapy - [address] [address] Therapy, Physical Appointment Related Social History Tobacco [...] PT, DPT and Ramin Samuel [employer] from [employer]. She confirmed their availability for this date/time. Gretchen Dietz MA 09/29/2019 11:11 documented in this encounter Plan of Treatment Not on file documented as of this encounter Visit Diagnoses Not on filedocumented in this encounter Care Teams Derrick Boat Lever Operator Relationship Specialty Start Date End Date Naina Lindsey MD [address] [place] [address] PCP - General 02/13/15 documented as of this encounter
--- OUTSIDE RECORDS SUMMARY | 2024-01-12 21:23 | XMS_ITS | Encounter Summary ---
Author Organization [facility] Address [facility] [place] [address] Care Team Providers Care Research Kennel Supervisor Name Role Phone Naina Lindsey MD Primary Care Provider [phone] Encounter Details Date Type Department Care Team (Late st Contact Info) Description 08/13/2010 [place] [address] Yas Ramirez MD [facility] [address] ORTHOPAEDIC [place] [address] Social History Tobacco Use Types Packs/Day Years [...] PM EST Office [place] [phone] Hollie Ambriz MD [facility] [address] INFECTIOUS [place] [address] documented as of this encounter Visit Diagnoses Not on filedocumented in this encounter Care Teams Research Kennel Supervisor Relationship Specialty Start Date End Date Naina Lindsey MD [address] [place] [address] PCP - General 03/19/10 08/25/16 documented as of this encounter
--- OUTSIDE RECORDS SUMMARY | 2024-01-12 21:23 | XMS_ITS | Encounter Summary ---
Author Organization [facility] Address [address] [place] [address] Care Team Providers Care Sweeper Operator Highways Name Role Phone César Robert MD, Naina Primary Care Provider [phone] Reason for Visit * Reason Onset Date Comments Appointment Related 05/25/2015 Encounter Details Date Type Department Care Team (Late st Contact Info) Description 05/25/2015 Telephone [facility] Rehabilitation Therapy - [address] [id number] Therapy, Outpatient, Appointment Related Social History Tobacco [...] on filedocumented in this encounter Care Teams Sweeper Operator Highways Relationship Specialty Start Date End Date Naina Lindsey MD [address] [place] [address] PCP - General 02/13/15 documented as of this encounter
--- OUTSIDE RECORDS SUMMARY | 2024-01-12 21:23 | XMS_ITS | Encounter Summary ---
Author Organization [facility] Address [address] [place] [address] Care Team Providers Care Slag Skimmer Name Role Phone César Robert MD, Naina Primary Care Provider [phone] Reason for Visit * Reason Onset Date Comments Appointment Related 11/26/2018 Encounter Details Date Type Department Care Team (Late st Contact Info) Description 11/26/2018 Telephone [facility] Rehabilitation Therapy - [address] [address] Therapist, Physical, PT Appointment Related Social History [...] on filedocumented in this encounter Care Teams Slag Skimmer Relationship Specialty Start Date End Date Naina Lindsey MD [address] [place] [address] [place] [address] PCP - General 02/13/15 documented as of this encounter
--- OUTSIDE RECORDS SUMMARY | 2024-01-12 21:23 | XMS_ITS | Encounter Summary ---
Author Organization [facility] Address [address] [place] [address] Care Team Providers Care Administrator Of Home Health Name Role Phone César Robert MD, Naina Primary Care Provider [phone] Reason for Visit * Reason Onset Date Comments Appointment Related 03/01/2015 Encounter Details Date Type Department Care Team (Late st Contact Info) Description 03/01/2015 Telephone [facility] Rehabilitation Therapy - [address] [address] Therapy, Outpatient, Appointment Related Social History Tobacco [...] chair. After discussing this with Phyllis Whitman CCC-APPLICATIONS SUPPORT ENGINEER and the [employer] it was determined that we needed more info and should acquire the APPLICATIONS SUPPORT ENGINEER notes from the patient's pathologist at her high school. Spoke with patient's student aid from [employer], Mesha Espinal. She indicates that the bracket that holds the Smart Talk device hits every door frame that they go through, and would like this remedied. Mesha states that there are no unmet APPLICATIONS SUPPORT ENGINEER needs at this time. I indicated to Mesha that Candelaria Jaquez PT should be able to address this need at the patient's Wheelchair Clinic appointment on 04/07/15. documented in this encounter Plan of Treatment Not on file documented as of this encounter Visit Diagnoses Not on filedocumented in this encounter Care Teams Administrator Of Home Health Relationship Specialty Start Date End Date Naina Lindsey MD [address] [place] [address] PCP - General 02/13/15 documented as of this encounter
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
--- OUTSIDE RECORDS SUMMARY | 2024-01-12 21:23 | XMS_ITS | Encounter Summary ---
Author Organization [facility] Address [address] [place] [address] Care Team Providers Care Aircraft Landing Gear Inspector Name Role Phone César Robert MD, Naina Primary Care Provider [phone] Encounter Details Date Type Department Care Team (Late st Contact Info) Description 04/24/2023 Lab Requisition [facility] Pathology & Laboratory Medicine - [address] [address] Outr Resulting Lab, Provider Social History Tobacco [...] Surface Ag Negative Negative 04/24/2023 22:33 EST [facility] Hep C Antibody Negative Negative 04/24/2023 22:33 EST [facility] Hepatitis A Antibody, IgM Negative Negative 04/24/2023 22:33 EST [facility] Comment:The results of this assay can be falsely lowered due to the consumption of Biotin. Hepatitis B Core Ab, Total Negative Negative 04/24/2023 22:33 EST [facility] Blood VENOUS BLOOD / Unknown 04/24/2023 10:00 EST 04/24/2023 21:06 EST Provider Outr Resulting Lab CHEMISTRY & BLOOD GAS ORDERABLES [facility] [address] [place] [address] documented in this encounter Visit Diagnoses Not on filedocumented in this encounter Care Teams Aircraft Landing Gear Inspector Relationship Specialty Start Date End Date Naina Lindsey MD [address] [place] [address] PCP - General 02/13/15 documented as of this encounter
--- OUTSIDE RECORDS SUMMARY | 2024-01-12 21:23 | XMS_ITS | Encounter Summary ---
Author Organization [facility] Address [address] [place] [address] Care Team Providers Care Mechanical Supervisor Name Role Phone César Robert MD, Naina Primary Care Provider [phone] Reason for Visit * Reason Onset Date Comments Appointment Related 04/04/2019 Encounter Details Date Type Department Care Team (Late st Contact Info) Description 04/04/2019 Telephone [facility] Rehabilitation Therapy - [address] [id number] Therapy, Physical Appointment Related Social History Tobacco [...] filedocumented in this encounter Care Teams Mechanical Supervisor Relationship Specialty Start Date End Date Naina Lindsey MD [address] [place], [place] [id number] PCP - General 02/13/15 documented as of this encounter
--- OUTSIDE RECORDS SUMMARY | 2024-01-12 21:23 | XMS_ITS | Encounter Summary ---
Author Organization [facility] Address [facility] [place] [address] Care Team Providers Care Self Pay Representative Name Role Phone Naina Lindsey MD Primary Care Provider [phone] Encounter Details Date Type Department Care Team (Late st Contact Info) Description 08/15/2010 7:43 AM EDT Anesthesia Event [place] [phone] Erika Curtis MD [facility] [place] [address] Anesthesia Record Procedure Summary Procedure Name Responsible [...] Lumen 08/15/10; 08/18/10; 0830 08/15/10 0000 by aMry Yeager RN 08/18/10 0830 by Uma Chanel [...] patient, father and mother. Plan discussed with LOTTERY OFFICE MANAGER. documented in this encounter Miscellaneous Notes [...] PM EST Office [place] [address] Hollie Ambriz MD [facility] [place] [address] documented as of this encounter Visit Diagnoses Not on filedocumented in this encounter Care Teams Self Pay Representative Relationship Specialty Start Date End Date Naina Lidnsey MD [address] [place] [address] [place] [address] PCP - General 03/19/10 08/25/16 documented as of this encounter
--- OUTSIDE RECORDS SUMMARY | 2024-01-12 21:23 | XMS_ITS | Encounter Summary ---
Author Organization [facility] Address [address] [place] [address] Care Team Providers Care Methodologist Name Role Phone César Robert MD, Naina Primary Care Provider [phone] Encounter Details Date Type Department Care Team (Late st Contact Info) Description 08/24/2018 Results Only [facility] [phone] Raul Mak MD [address] [place] [address] Social History Tobacco Use Types Packs/Day Years [...] ? SHELTONJOHNArthur Hayes ? Accession #: ? [id number] ? : ? 1995 (Age: 23) ??F ? Collect Date: ? 08/24/2018 ? Location: ? [facility] ? Receive Date: ? 08/25/2018 ? Provider: RAUL MAK MD Copy to: JERED MARTINEZ BALL SHAGGER ? Final Pathologic Diagnosis: UTERUS AND FALLOPIAN [...] and mucin greatest dimension paratubal cyst. ? Tank Cooper sections are submitted as follows: BLOCK MONTOYA 1-2- ??detached left fallopian tube cross-sections and fimbria 3-4- ??attached right fallopian tube cross-sections with paratubal cyst and fimbria 5- bilateral cervix (anterior marked by blue) 6- ??bilateral lower uterine segments (anterior marked by blue ink) 7-9- ??posterior endomyometrium including probable endometrial polyp 10-11- ??anterior endomyometrium site safety representative sections Dr. Mora 08/26/2018 3:08 PM End of Report [facility] 08/24/2018 11:4 5 EDT 08/25/2018 11:45 EDT Raul Mak MD PATHOLOGY ORDERABLES [facility] [address] [place] [address] documented in this encounter Visit Diagnoses Not on filedocumented in this encounter Care Teams Methodologist Relationship Specialty Start Date End Date Naina Lindsey MD [address] [place] [address] PCP - General 02/13/15 documented as of this encounter
--- OUTSIDE RECORDS SUMMARY | 2024-01-12 21:23 | XMS_ITS | Encounter Summary ---
Author Organization [facility] Address [address] [place] [address] Care Team Providers Care Distillation Operator Helper Name Role Phone César Robert MD, Naina Primary Care Provider [phone] Reason for Visit * Reason Onset Date Comments Appointment Related 05/04/2019 Encounter Details Date Type Department Care Team (Late st Contact Info) Description 05/04/2019 Telephone [facility] Rehabilitation Therapy - [address] [phone] Therapy, Physical Appointment Related Social History Tobacco [...] on filedocumented in this encounter Care Teams Distillation Operator Helper Relationship Specialty Start Date End Date Naina Lindsey MD [address] [place] [address] PCP - General 02/13/15 documented as of this encounter
--- OUTSIDE RECORDS SUMMARY | 2024-01-12 21:23 | XMS_ITS | Encounter Summary ---
Author Organization [facility] Address [address] [place] [address] Care Team Providers Care Assistant Project Engineer Name Role Phone César Robert MD, Naina Primary Care Provider [phone] Reason for Visit * Reason Onset Date Comments Appointment Related 11/05/2018 Encounter Details Date Type Department Care Team (Late st Contact Info) Description 11/05/2018 Telephone [facility] Rehabilitation Therapy - [address] [address] Therapist, Physical, PT Appointment Related Social History Tobacco Use Types Packs/Day Years Used Date Smoking Tobacco: Never Assessed Sex and Gender Information Value Date Recorded Sex Assigned at Not on file Gender Identity Not on file Sexual Orientation Not on file documented as of this encounter Miscellaneous Notes * Telephone Encounter - Gretchen Dietz - 11/05/2018 1344 EDT [facility] [address] [address] Person providing information? Fernanda - Caregiver Guardian: - Phone number: [phone] 1. Who recommended that you be seen [...] additional questionnaire (if needed)? - Gretchen Dietz [facility] - [address] [address] Telephone Intake Information for Scheduling NEW Patients [...] filedocumented in this encounter Care Teams Assistant Project Engineer Relationship Specialty Start Date End Date Naina Lindsey MD [address] [place] [address] PCP - General 02/13/15 documented as of this encounter
--- OUTSIDE RECORDS SUMMARY | 2024-01-12 21:23 | XMS_ITS | Encounter Summary ---
Author Organization [facility] Address [address] [place] [address] Care Team Providers Care Ophthalmic Technologist Name Role Phone César Robert MD, Naina Primary Care Provider [phone] Encounter Details Date Type Department Care Team (Latest Contact Info) Description 07/24/2015 12:40 EDT - 07/24/2015 23:59 EDT Hospital Encounter [address] [address] Naina Lindsey MD [address] [place], [place] [id number] Discharge Disposition: Auto Discharge Social History Tobacco [...] filedocumented in this encounter Care Teams Ophthalmic Technologist Relationship Specialty Start Date End Date Naina Lindsey MD [address] [place] [address] PCP - General 02/13/15 documented as of this encounter
--- OUTSIDE RECORDS SUMMARY | 2024-01-12 21:23 | XMS_ITS | Referral Summary ---
Author Organization [facility] Address [address] [place] [address] Care Team Providers Care Him Assistant Name Role Phone César Robert MD, Naina Primary Care Provider [phone] Encounters Date Type Department Care Team Description 12/04/2023 Lab Requisition [facility] Pathology & Laboratory Medicine - [facility] [address] [place] [address] Outr Resulting Lab, Provider from Last 3 [...] appointments, call Yahaira dual living providers Kavita: [phone]. No additional problems on file Social History [...] >15.00 See Note mg/L 12/04/2023 18:03 EDT [facility] Comment: Suggest ordering C-Reactive Protein Reference Range: ??Low Risk: ? <1.0 mg/L ??Average Risk: ?? 1.0 - 3.0 mg/L ??High Risk: ?>3.0 mg/L ??Indeterminate*: >10.0 mg/L ??*May be an indication of another source of inflammation or infection Blood VENOUS BLOOD / Unknown 12/04/2023 10:00 EDT 12/04/2023 17:37 EDT Provider Outr Resulting Lab CHEMISTRY & BLOOD GAS ORDERABLES Performing Organization Address [facility]/State/[facility] [[email or web address]] Co de Phone Number [facility] [address] [place] [address] from Last 3 Months Care Teams Him Assistant Relationship Specialty Start Date End Date Naina Lindsey MD [address] [place] [address] PCP - General 02/13/15
--- OUTSIDE RECORDS SUMMARY | 2024-01-12 21:23 | XMS_ITS | Encounter Summary ---
Author Organization [facility] Address [address] [place] [address] Care Team Providers Care Vegetable Ii Farmworker Name Role Phone César Robert MD, Naina Primary Care Provider [phone] Reason for Visit * Reason Onset Date Comments Appointment Related 05/14/2015 Encounter Details Date Type Department Care Team (Late st Contact Info) Description 05/14/2015 Telephone [facility] Rehabilitation Therapy - [facility] [address] [place] [address] Therapy, Outpatient, Appointment Related Social [...] the original note were not included. 0 [facility]; [place] [address] May 14, 2015 Dear Javed; Per our conversation, Tana has been scheduled to be seen by the [facility] Wheelchair Assessment Team for an additional power chair evaluation. Your appointment will last for approximately 3 hours and is scheduled for: Date: Friday July 10, 2015 Time: 12:30 Place: [facility] [address] [place] [id number] The evaluation team will include the following people: [facility] Rehabilitation Physical Therapist: Candelaria Jaquez PT Medical Supplier Carpenter Maintenance: Ramin from [facility] Please call to pre-register with [facility] prior to your appointment at [phone]. During the evaluation, we would like to [...] unable to make your appointment please call [phone]. *48-hour notice is required for cancellation.* We look forward to seeing you. Mile Ronquillo [facility] Rehabilitation Therapy Center [facility] documented in this encounter Plan of Treatment Not on file documented as of this encounter Visit Diagnoses Not on filedocumented in this encounter Care Teams Vegetable Ii Farmworker Relationship Specialty Start Date End Date Naina Lindsey MD [address] [place] [address] PCP - General 02/13/15 documented as of this encounter
--- OUTSIDE RECORDS SUMMARY | 2024-01-12 21:23 | XMS_ITS | Encounter Summary ---
Author Organization [facility] Address [address] [place] [address] Care Team Providers Care Baggage Porter Name Role Phone César Robert MD, Naina Primary Care Provider [phone] Encounter Details Date Type Department Care Team (Late st Contact Info) Description 12/04/2023 Lab Requisition [facility] Pathology & Laboratory Medicine - [address] [address] Outr Resulting Lab, Provider Social History Tobacco [...] >15.00 See Note mg/L 12/04/2023 18:03 EDT [facility] Comment: Suggest ordering C-Reactive Protein Reference Range: ??Low Risk: ? <1.0 mg/L ??Average Risk: ?? 1.0 - 3.0 mg/L ??High Risk: ?>3.0 mg/L ??Indeterminate*: >10.0 mg/L ??*May be an indication of another source of inflammation or infection Blood VENOUS BLOOD / Unknown 12/04/2023 10:00 EDT 12/04/2023 17:37 EDT Provider Outr Resulting Lab CHEMISTRY & BLOOD GAS ORDERABLES Performing Organization Address City/State/[facility] Co de Phone Number [facility] [address] [place] [address] documented in this encounter Visit Diagnoses Not on filedocumented in this encounter Care Teams Baggage Porter Relationship Specialty Start Date End Date Naina Lindsey MD [address] [place] [address] PCP - General 02/13/15 documented as of this encounter
--- OUTSIDE RECORDS SUMMARY | 2024-01-12 21:23 | XMS_ITS | Encounter Summary ---
Author Organization [facility] Address [address] [place] [address] Care Team Providers Care Relations Manager Name Role Phone César Robert MD, Naina Primary Care Provider [phone] Reason for Visit * Reason Onset Date Comments Other 04/03/2015 Encounter Details Date Type Department Care Team (Late st Contact Info) Description 04/03/2015 Telephone [facility] Rehabilitation Therapy - [facility] [address] [place], [place] [phone] Candelaria Jaquez, PT [address] [place] [address] Other Social History Tobacco Use [...] on filedocumented in this encounter Care Teams Relations Manager Relationship Specialty Start Date End Date Naina Lindsey MD [address] [place], [place] [id number] PCP - General 02/13/15 documented as of this encounter
--- OUTSIDE RECORDS SUMMARY | 2024-01-12 21:23 | XMS_ITS | Encounter Summary ---
Author Organization [facility] Address [address] [place] [address] Care Team Providers Care Back Tender Cloth Printing Name Role Phone César Robert MD, Naina Primary Care Provider [phone] Encounter Details Date Type Department Care Team (Late st Contact Info) Description 04/02/2021 Lab Requisition [facility] Pathology & Laboratory Medicine - [address] [address] Outr Resulting Lab, Provider Social History Tobacco [...] Outr Resulting Lab MICROBIOLOGY - GENERAL ORDERABLES [facility] [address] [place] [address] * COVID-19 TESTING (04/02/2021 10:55 EST) COVID-19 rt-PCR Result Negative Negative 04/03/2021 14:17 EST [facility] Comment: This test has [...] performed using the eve SARS-CoV-2 assay ([employer] on the Eve 6800 System Performing Lab Eve [address] [facility] Lab 04/03/2021 14:17 EST [facility] Swab 04/02/2021 10:5 5 EST 04/02/2021 22:22 EST Provider Outr Resulting Lab MICROBIOLOGY - GENERAL ORDERABLES [facility] [address] [place] [address] documented in this encounter Visit Diagnoses Not on filedocumented in this encounter Care Teams Back Tender Cloth Printing Relationship Specialty Start Date End Date Naina Lindsey MD [address] [place] [address] [place] [address] PCP - General 02/13/15 documented as of this encounter
--- OUTSIDE RECORDS SUMMARY | 2024-01-12 21:23 | XMS_ITS | Encounter Summary ---
Author Organization [facility] Address [address] [place] [address] Care Team Providers Care Spoon Maker Name Role Phone César Robert MD, Naina Primary Care Provider [phone] Reason for Visit * Reason Onset Date Comments Other 01/04/2016 Encounter Details Date Type Department Care Team (Late st Contact Info) Description 01/04/2016 Telephone [facility] Rehabilitation Therapy - [address] [phone] Therapy, Outpatient, Other Social History Tobacco Use [...] I have spoken to Oliver Lozano at [facility], but he could not see in their paperwork a clear delivery timeframe. I have sent an e-mail to Ramin Samuel and Amna Giraldo at [facility] asking that someone call Javed and give her an estimate of when the chair will be delivered. documented in this encounter Plan of Treatment Not on file documented as of this encounter Visit Diagnoses Not on filedocumented in this encounter Care Teams Spoon Maker Relationship Specialty Start Date End Date Naina Lindsey MD [address] [place] [address] PCP - General 02/13/15 documented as of this encounter
--- OUTSIDE RECORDS SUMMARY | 2024-01-12 21:23 | XMS_ITS | Encounter Summary ---
Author Organization [facility] Address [address] [place] [address] Care Team Providers Care Walking Dragline Operator Name Role Phone César Robert MD, Naina Primary Care Provider [phone] Reason for Visit * Reason Onset Date Comments Appointment Related 03/01/2015 Encounter Details Date Type Department Care Team (Late st Contact Info) Description 03/01/2015 Telephone [facility] Rehabilitation Therapy - [address] [phone] Therapy, Outpatient, Appointment Related Social History Tobacco [...] by Candelaria Jaquez PT and Phyllis Whitman CCC-HUMAN RESOURCES TRAINER : Phyllis indicates she may need to do a Speech Language Evaluation for this patient. I have called and relayed this information to the patient's mother : Patient is part of the [facility] - being seen by their Speech Language Pathologists : Zina Thomas and Osman Rodriguez. Per Phyllis's: HUMAN RESOURCES TRAINER notes need to be obtained so that she can determine the length/scope of the patient's SLE appointment so that it may be properly scheduled. I will contact the [employer] to request these records. documented in this encounter Plan of Treatment Not on file documented as of this encounter Visit Diagnoses Not on filedocumented in this encounter Care Teams Walking Dragline Operator Relationship Specialty Start Date End Date Naina Lindsey MD [address] [place] [address] PCP - General 02/13/15 documented as of this encounter
--- OUTSIDE RECORDS SUMMARY | 2024-01-12 21:23 | XMS_ITS | Encounter Summary ---
Author Organization [facility] Address [address] [place] [address] Care Team Providers Care Sash Assembler Name Role Phone César Robert MD, Naina Primary Care Provider [phone] Reason for Visit * Reason Onset Date Comments Appointment Related 10/25/2019 Encounter Details Date Type Department Care Team (Late st Contact Info) Description 10/25/2019 Telephone [facility] Rehabilitation Therapy - [address] [phone] Therapy, Physical Appointment Related Social History Tobacco [...] wheelchair clinic appointment, to occur tomorrow at [facility]. They confirmed their availability for this date/time. Gretchen Dietz MA 10/25/2019 15:15 documented in this encounter Plan of Treatment Not on file documented as of this encounter Visit Diagnoses Not on filedocumented in this encounter Care Teams Sash Assembler Relationship Specialty Start Date End Date Naina Lindsey MD [address] [place], [place] [address] PCP - General 02/13/15 documented as of this encounter
--- OUTSIDE RECORDS SUMMARY | 2024-01-12 21:23 | XMS_ITS | Encounter Summary ---
Author Organization [facility] Address [address] [place] [address] Care Team Providers Care Meteorology Professor Name Role Phone César Robert MD, Naina Primary Care Provider [phone] Encounter Details Date Type Department Care Team (Latest Contact Info) Description 08/24/2018 17:22 EDT - 08/24/2018 23:59 EDT Hospital Encounter [address] [address] Unknown, Provider, Discharge Disposition: Home or Self [...] on filedocumented in this encounter Care Teams Meteorology Professor Relationship Specialty Start Date End Date Naina Lindsey MD [address] [place] [address] [place] [address] PCP - General 02/13/15 documented as of this encounter
--- OUTSIDE RECORDS SUMMARY | 2024-01-12 21:23 | XMS_ITS | Encounter Summary ---
Author Organization [facility] Address [address] [place] [address] Care Team Providers Care Natural Gas Field Processing Supervisor Name Role Phone César Robert MD, Naina Primary Care Provider [phone] Reason for Visit * Reason Onset Date Comments Appointment Related 07/20/2015 Encounter Details Date Type Department Care Team (Late st Contact Info) Description 07/20/[address] [facility] Rehabilitation Therapy - [address] [phone] Therapy, Outpatient, Appointment Related Social History Tobacco [...] on filedocumented in this encounter Care Teams Natural Gas Field Processing Supervisor Relationship Specialty Start Date End Date Naina Lindsey MD [address] [place] [address] PCP - General 02/13/15 documented as of this encounter
--- OUTSIDE RECORDS SUMMARY | 2024-01-12 21:23 | XMS_ITS | Encounter Summary ---
Author Organization [facility] [place] [address] Care Team Providers Care Import Clerk Name Role Phone Naina Lindsey MD Primary Care Provider [phone] Encounter Details Date Type Department Care Team (Late st Contact Info) Description 07/11/2010 9:00 AM EDT [place] [phone] Andrade Gordon MD [facility] [place] [address] Discharge Disposition: Home Social History Tobacco Use [...] Office [place] [phone] Hollie Ambriz MD [facility] [place] [address] documented as of this encounter Visit Diagnoses Not on filedocumented in this encounter Care Teams Import Clerk Relationship Specialty Start Date End Date Naina Lindsey MD [address] [place] [address] PCP - General 03/19/10 08/25/16 documented as of this encounter
--- OUTSIDE RECORDS SUMMARY | 2024-01-12 21:23 | XMS_ITS | Encounter Summary ---
Author Organization [facility] [place] [address] Care Team Providers Care Brass Cutter Name Role Phone Naina Lindsey MD Primary Care Provider [phone] Encounter Details Date Type Department Care Team (Late st Contact Info) Description 08/13/2010 Orders [place] [address] Yas Ramirez MD [facility] DR ORTHOPAEDIC [place] [address] DDH (developmental dysplasia of the hip) (Primary [...] PM EST Office Visit [place] [address] Hollie Ambriz MD [facility] DR INFECTIOUS [place] [address] documented as of this encounter Visit Diagnoses Diagnosis 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
--- OUTSIDE RECORDS SUMMARY | 2024-01-12 21:23 | XMS_ITS | Encounter Summary ---
Author Organization [facility] Address [address] [place] [address] Care Team Providers Care Pie Crust Mixer Name Role Phone César Robert MD, Naina Primary Care Provider [phone] Encounter Details Date Type Department Care Team [...] Outpatient Rehab Plan of Care REHABILITATION THERAPIES [facility] REHABILITATION THERAPY - [address] [address] Physical Therapy Progress Note Date of Service: [...] verbalized understanding Team Communication: MYA Pleitez from [facility] and two of Tana's caregivers were present and participated in this entire visit. A: The custom mold was created for Tana's new custom seating system. 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 Prison Goals: 8 weeks Will have a wheeled [...] Cc: Referring Provider: LIZETH Sandoval ATP from [facility] Rehabilitation Therapies [facility] Fax: [phone] WHEELCHAIR PRESCRIPTION 05/06/2019 Tana Cavazos 1995 [address] [place] [address] (home) [phone] (work) Insurance Policy Number 1. [place] Medicaid ACO [id number] Medical/Surgical History: Current: There is no problem [...] elbow (90 degrees)-n/a Component Wheelchair Description Justification Keno Attendant, style and model USE EXISTING WHEELCHAIR [...] on the mold. ?? Incontinent cover ?? Buffalo headrest mounting plate ?? Buffalo headrest mount ?? To accommodate .Tana's fixed [...] Referring Provider: Lorna Bal NP Funding at [facility] Plan ATTENDING PHYSICIAN: Your [...] on filedocumented in this encounter Care Teams Pie Crust Mixer Relationship Specialty Start Date End Date Naina Lindsey MD [address] [place] [address] PCP - General 02/13/15 documented as of this encounter
--- OUTSIDE RECORDS SUMMARY | 2024-01-12 21:23 | XMS_ITS | Encounter Summary ---
Author Organization [facility] Address [address] [place] [address] Care Team Providers Care Medical Technologist Clinical Name Role Phone César Robert MD, Naina Primary Care Provider [phone] Reason for Visit * Reason Onset Date Comments Appointment Related 03/02/2019 Encounter Details Date Type Department Care Team (Late st Contact Info) Description 03/02/2019 Telephone [facility] Rehabilitation Therapy - [address] [address] Therapy, Physical Appointment Related Social History Tobacco Use Types Packs/Day Years Used Date Smoking Tobacco: Never Assessed Sex and Gender Information Value Date Recorded Sex Assigned at Not on file Gender Identity Not on file Sexual Orientation Not on file documented as of this encounter Miscellaneous Notes * Telephone Encounter - Gretchen Dietz MA - 03/02/2019 5627 EST Voicemail message left for this patient asking that she call back into the wheelchair clinic at [phone] to confirm her availability for a custom molding appointment here at [facility] with Candelaria Jaquez, PT, DPT and Ramin Samuel ATP from [facility] for Thu04/06/19, 02-05. GRETCHEN DIETZ MA 03/02/2019 15:46 documented in this encounter Plan of Treatment Not on file documented as of this encounter Visit Diagnoses Not on filedocumented in this encounter Care Teams Medical Technologist Clinical Relationship Specialty Start Date End Date Naina Lindsey MD [address] [place] [address] PCP - General 02/13/15 documented as of this encounter
--- OUTSIDE RECORDS SUMMARY | 2024-01-12 21:23 | XMS_ITS | Encounter Summary ---
Author Organization [facility] Address [address] [place] [address] Care Team Providers Care Coil Winder Repair Name Role Phone César Robert MD, Naina Primary Care Provider [phone] Reason for Visit * Reason Onset Date Comments Appointment Related 09/27/2019 Encounter Details Date Type Department Care Team (Late st Contact Info) Description 09/27/2019 Telephone [facility] Rehabilitation Therapy - [address] [phone] Therapy, Physical Appointment Related Social History Tobacco [...] filedocumented in this encounter Care Teams Coil Winder Repair Relationship Specialty Start Date End Date Naina Lindsey MD [address] [place] [address] PCP - General 02/13/15 documented as of this encounter
--- OUTSIDE RECORDS SUMMARY | 2024-01-12 21:23 | XMS_ITS | Encounter Summary ---
Author Organization [facility] Address [address] [place] [address] Care Team Providers Care Private Detective Name Role Phone César Robert MD, Naina Primary Care Provider [phone] Reason for Visit * Reason Onset Date Comments Appointment Related 03/30/2015 Encounter Details Date Type Department Care Team (Late st Contact Info) Description 03/30/2015 Telephone [facility] Rehabilitation Therapy - [address] [phone] Therapy, Outpatient, Appointment Related Social History Tobacco [...] on filedocumented in this encounter Care Teams Private Detective Relationship Specialty Start Date End Date Naina Lindsey MD [address] [place] [address] [place] [address] PCP - General 02/13/15 documented as of this encounter
--- OUTSIDE RECORDS SUMMARY | 2024-01-12 21:23 | XMS_ITS | Clinical Summary ---
Author Organization [facility] Address [address] [place] [address] Care Team Providers Care Creative Services Writer Name Role Phone César Robert MD, Naina Primary Care Provider [phone] Medications Medication Sig Dispensed Refills Start Date [...] appointments, call Tana's dual living providers Kavita: [phone]. No additional problems on file Encounters Date Type Department Care Team Description 12/04/2023 Lab Requisition [facility] Pathology & Laboratory Medicine - [facility] [address] [place] [address] Outr Resulting Lab, Provider from Last 3 [...] >15.00 See Note mg/L 12/04/2023 18:03 EDT [facility] Comment: Suggest ordering C-Reactive Protein Reference Range: ??Low Risk: ? <1.0 mg/L ??Average Risk: ?? 1.0 - 3.0 mg/L ??High Risk: ?>3.0 mg/L ??Indeterminate*: >10.0 mg/L ??*May be an indication of another source of inflammation or infection Blood VENOUS BLOOD / Unknown 12/04/2023 10:00 EDT 12/04/2023 17:37 EDT Provider Outr Resulting Lab CHEMISTRY & BLOOD GAS ORDERABLES [facility] [address] [place] [address] from Last 3 Months Care Teams Creative Services Writer Relationship Specialty Start Date End Date Naina Lindsey MD [address] [place] [address] PCP - General 02/13/15
--- OUTSIDE RECORDS SUMMARY | 2024-01-12 21:23 | XMS_ITS | Encounter Summary ---
Author Organization [facility] Address [address] [place] [address] Care Team Providers Care Bottom Loader Name Role Phone César Robert MD, Naina Primary Care Provider [phone] Reason for Visit * Reason Onset Date Comments Appointment Related 11/30/2015 Encounter Details Date Type Department Care Team (Late st Contact Info) Description 11/30/2015 Telephone [facility] Rehabilitation Therapy - [address] [address] Therapy, Outpatient, Appointment Related Social History Tobacco [...] on filedocumented in this encounter Care Teams Bottom Loader Relationship Specialty Start Date End Date Naina Lindsey MD [address] [place] [address] PCP - General 02/13/15 documented as of this encounter
--- OUTSIDE RECORDS SUMMARY | 2024-01-12 21:23 | XMS_ITS | Encounter Summary ---
Author Organization [facility] Address [address] [place] [address] Care Team Providers Care Service Liaison Representative Name Role Phone César Robert MD, Naina Primary Care Provider [phone] Encounter Details Date Type Department Care Team (Late st Contact Info) Description 07/01/2023 Lab Requisition [facility] Pathology & Laboratory Medicine - [address] [phone] Outr Resulting Lab, Provider Social History Tobacco [...] IgA <4.0 <20.0 CU 07/02/2023 10:22 EST [facility] Comment: Negative: <20.0 CU Weak Positive: 20.0-30.0 CU Positive: >30.0 CU Results were obtained with the [employer] Flash h-tTG IgA chemiluminescent immunoassay. Values obtained with different manufacturers' assay methods may not be used interchangeably. Blood VENOUS BLOOD / Unknown 07/01/2023 10:52 EST 07/01/2023 21:12 EST Provider Outr Resulting Lab IMMUNOLOGY A ND SEROLOGY ORDERABLES Performing Organization Address City/State/[facility] Co de Phone Number [facility] [address] [place], [place] [phone] documented in this encounter Visit Diagnoses Not on filedocumented in this encounter Care Teams Service Liaison Representative Relationship Specialty Start Date End Date Naina Lindsey MD [address] [place] [address] PCP - General 02/13/15 documented as of this encounter
--- OUTSIDE RECORDS SUMMARY | 2024-01-12 21:23 | XMS_ITS | Encounter Summary ---
Author Organization [facility] Address [address] [place] [address] Care Team Providers Care Boom Cat Operator Name Role Phone César Robert MD, Naina Primary Care Provider [phone] Encounter Details Date Type Department Care Team (Late st Contact Info) Description 07/01/2023 Lab Requisition [facility] Pathology & Laboratory Medicine - [address] [id number] Outr Resulting Lab, Provider Social History Tobacco [...] - 499 mg/dL 07/02/2023 11:39 EST [facility] Blood VENOUS BLOOD / Unknown 07/01/2023 10:52 EST 07/01/2023 21:19 EST Provider Outr Resulting Lab CHEMISTRY & BLOOD GAS ORDERABLES Performing Organization Address City/[facility] Co de Phone Number [facility] [address] [place] [address] * (ABNORMAL) IGG (07/01/2023 10:52 EST) IgG 1,631(H) 610 - 1,616 mg/dL 07/02/2023 11:39 EST [facility] Blood VENOUS BLOOD / Unknown 07/01/2023 10:52 EST 07/01/2023 21:19 EST Provider Outr Resulting Lab CHEMISTRY & BLOOD GAS ORDERABLES Performing Organization Address City/[facility] Co de Phone Number [facility] [address] [place], [place] [address] documented in this encounter Visit Diagnoses Not on filedocumented in this encounter Care Teams Boom Cat Operator Relationship Specialty Start Date End Date Naina Lindsey MD [address] [place] [address] PCP - General 02/13/15 documented as of this encounter
--- OUTSIDE RECORDS SUMMARY | 2024-01-12 21:23 | XMS_ITS | Encounter Summary ---
Author Organization [facility] Address [address] [place] [address] Care Team Providers Care Natural Resources Specialist Name Role Phone César Robert MD, Naina Primary Care Provider [phone] Reason for Visit * Reason Onset Date Comments Appointment Related 02/13/2015 Encounter Details Date Type Department Care Team (Late st Contact Info) Description 02/13/2015 Telephone [facility] Rehabilitation Therapy - [address] [address] Therapy, Outpatient, Appointment Related Social History Tobacco Use Types Packs/Day Years Used Date Smoking Tobacco: Never Assessed Sex and Gender Information Value Date Recorded Sex Assigned at Not on file Gender Identity Not on file Sexual Orientation Not on file documented as of this encounter Miscellaneous Notes * Telephone Encounter - Mile Ronquillo - 02/13/2015 1102 EDT [facility] [address] [address] Person providing information? Mother Guardian: Mother Phone number: [phone] 1. Who recommended that you be seen [...] send an additional questionnaire (if needed)? -- [facility] - [address] [address] Telephone Intake Information for Scheduling NEW Patients [...] 30 total therapy visits (PT, OT, and STEAM PRESSER combined) between 04-27-14 and 04-26-15. If the patient has exceeded 30 visits already, further therapy will not be covered by their insurance. Date: Tuesday April 07, 2015 Therapist: Candelaria Jaquez, PT @ 1:15 Location: [facility] Name of Supplier: [employer] Name of Rep: Ramin @ 1:45 Reason For Appt: manual Vs. Power Pressure Mapping? no Mile Ronquillo documented in this encounter Plan of Treatment Not on file documented as of this encounter Visit Diagnoses Not on filedocumented in this encounter Care Teams Natural Resources Specialist Relationship Specialty Start Date End Date Naina Lindsey MD [address] [place] [address] PCP - General 02/13/15 documented as of this encounter
--- OUTSIDE RECORDS SUMMARY | 2024-01-12 21:23 | XMS_ITS | Encounter Summary ---
Author Organization [facility] Address [address] [place] [address] Care Team Providers Care Property Developer Name Role Phone César Robert MD, Naina Primary Care Provider Encounter Details Date Type Department Care Team (Latest Contact Info) Description 12/04/2015 19:02 EDT - 12/04/2015 23:59 EDT Hospital Encounter [facility] [address] [place] [address] Leonid Candelaria, PT [address] [place] [phone] Andrade Lux MD [address] [facility] [address] [phone] Naina Lindsey MD [address] [place] [place], [place] [phone] Discharge Disposition: Auto Discharge Social History Tobacco [...] on filedocumented in this encounter Care Teams Property Developer Relationship Specialty Start Date End Date Naina Lindsey MD [address] [place] [address] PCP - General 02/13/15 documented as of this encounter
--- OUTSIDE RECORDS SUMMARY | 2024-01-12 21:23 | XMS_ITS | Encounter Summary ---
Author Organization [facility] Address [address] [place] [address] Care Team Providers Care Transmission Technician Name Role Phone César Robert MD, Naina Primary Care Provider [phone] Reason for Visit * Reason Onset Date Comments Appointment Related 04/13/2019 Encounter Details Date Type Department Care Team (Late st Contact Info) Description 04/13/2019 Telephone [facility] Rehabilitation Therapy - [address] [phone] Therapy, Physical Appointment Related Social History Tobacco [...] erickson Cristobal upcoming wheelchair appointment here at [facility] on 05/06 from 2-4. She confirmed they were available for the date/time. Gretchen Dietz MA 04/13/2019 15:19 documented in this encounter Plan of Treatment Not on file documented as of this encounter Visit Diagnoses Not on filedocumented in this encounter Care Teams Transmission Technician Relationship Specialty Start Date End Date Naina Lindsey MD [address] [place] [address] [place], [place] [id number] PCP - General 02/13/15 documented as of this encounter
== END 2024-01-12 21:10 | disposition home or self-care (01) ==
LOC: LBN 21:09
PROVIDERS: PCP Nurse Practitioner Family; Visit Provider Nurse Practitioner Family
DX: L02.91 Cutaneous abscess, unspecified (principal); Z79.01 Long term (current) use of anticoagulants
CPT/HCPCS: 80053; 85025; 86140

== ENCOUNTER 2024-01-26 13:33 | Outpatient (REF) | payer MEDICAID, SELFPAY ==
[2024-01-26 15:10] LABS: Abs Immature Grans 0.01 10^3/uL (0.0-0.06); Absolute Basophil Count 0.04 10^3/uL (0.0-0.2); Absolute Eosinophil Count 0.09 10^3/uL (0.0-0.7); Absolute Lymphocyte Count 1.91 10^3/uL (1.2-3.4); Absolute Monocyte Count 0.32 10^3/uL (0.1-0.8); Absolute Neutrophil Count 3.09 10^3/uL (1.2-6.7); Basophils % 0.7 %; Eosinophils % 1.6 %; HGB 12.2 g/dL (11.2-15.7); Immature Grans % 0.2 %; MCHC 30.5 % (32.0-36.0); MCV 85 fL (80-95); MPV 9.8 fL (8.0-11.0); Monocytes % 5.9 %; Neutrophils % 56.6 %; Platelet Count 388 10^3/uL (130-400); RDW 16.5 % (11.7-14.6); RDW-SD 51.8 fL; WBC 5.46 10^3/uL (4.4-10.8)
[2024-01-26 18:27] LABS: ALT 52 U/L (14-59); AST 25 U/L (15-37); Albumin 3.3 g/dL (3.4-5.0); Alkaline Phosphatase 181 U/L (46-116); Anion Gap 10.3 mmol/L (3-11); BUN 11 mg/dL (7-18); Bilirubin, Total 0.17 mg/dL (0.2-1.0); CO2 25.7 mmol/L (21.0-32.0); CREATININE 0.5 mg/dL (0.55-1.02); Calcium 9.2 mg/dL (8.5-10.1); Chloride 101 mmol/L (98-107); Estimated GFR 129.32 (mL/min/1.73m2); Glucose 94 mg/dL (74-106); Potassium 4.2 mmol/L (3.5-5.1); Sodium 137 mmol/L (136-145); Total Protein 7.7 g/dL (6.4-8.2)
== END 2024-01-26 13:34 | disposition home or self-care (01) ==
LOC: LBN 13:33
PROVIDERS: PCP Nurse Practitioner Family; Visit Provider Student in an Organized Health Care Education/Training Program
DX: M46.20 Osteomyelitis of vertebra, site unspecified (principal)
CPT/HCPCS: 80053; 85025; 86140

== ENCOUNTER 2024-02-10 15:08 | Outpatient (REF) | payer MEDICAID, SELFPAY ==
[2024-02-10 13:23] LABS: Abs Immature Grans 0.01 10^3/uL (0.0-0.06); Absolute Basophil Count 0.01 10^3/uL (0.0-0.2); Absolute Eosinophil Count 0.07 10^3/uL (0.0-0.7); Absolute Lymphocyte Count 1.21 10^3/uL (1.2-3.4); Absolute Monocyte Count 0.17 10^3/uL (0.1-0.8); Basophils % 0.2 %; Eosinophils % 1.7 %; HCT 42.3 % (36.0-46.0); HGB 13.1 g/dL (11.2-15.7); Immature Grans % 0.2 %; Lymphocytes % 30.1 %; MCH 26.3 pg (27.0-33.0); MCV 85 fL (80-95); MPV 10.5 fL (8.0-11.0); Monocytes % 4.2 %; Neutrophils % 63.6 %; Platelet Count 246 10^3/uL (130-400); RBC 4.98 10^6/uL (3.93-5.22); RDW 18.2 % (11.7-14.6); RDW-SD 55.4 fL; WBC 4.02 10^3/uL (4.4-10.8)
[2024-02-10 13:24] LABS: ESR 46 mm/hr (0-20)
[2024-02-10 13:26] LABS: Absolute Neutrophil Count 2.56 10^3/uL (1.2-6.7)
[2024-02-10 13:48] LABS: ALT 66 U/L (14-59); AST 36 U/L (15-37); Albumin 3.7 g/dL (3.4-5.0); Alkaline Phosphatase 176 U/L (46-116); Anion Gap 12.4 mmol/L (3-11); BUN 14 mg/dL (7-18); Bilirubin, Total 0.23 mg/dL (0.2-1.0); C-Reactive Protein 2.47 mg/dL (<or=0.5); CO2 25.6 mmol/L (21.0-32.0); CREATININE 0.5 mg/dL (0.55-1.02); Chloride 105 mmol/L (98-107); Estimated GFR 129.32 (mL/min/1.73m2); Glucose 124 mg/dL (74-106); Potassium 3.9 mmol/L (3.5-5.1); Sodium 143 mmol/L (136-145); Total Protein 7.9 g/dL (6.4-8.2)
== END 2024-02-10 15:09 | disposition home or self-care (01) ==
LOC: LBN 15:08
PROVIDERS: PCP Nurse Practitioner Family; Visit Provider Student in an Organized Health Care Education/Training Program
DX: L02.91 Cutaneous abscess, unspecified (principal)
CPT/HCPCS: 80053; 85652; 85025; 86140

== ENCOUNTER 2024-02-24 13:21 | Outpatient (REF) | payer MEDICAID, SELFPAY ==
[2024-02-25 08:29] LABS: Abs Immature Grans 0.01 10^3/uL (0.0-0.06); Absolute Basophil Count 0.03 10^3/uL (0.0-0.2); Absolute Eosinophil Count 0.05 10^3/uL (0.0-0.7); Absolute Lymphocyte Count 1.35 10^3/uL (1.2-3.4); Absolute Monocyte Count 0.23 10^3/uL (0.1-0.8); Basophils % 0.8 %; Eosinophils % 1.3 %; HCT 38.5 % (36.0-46.0); HGB 12.4 g/dL (11.2-15.7); Immature Grans % 0.3 %; Lymphocytes % 33.9 %; MCH 26.9 pg (27.0-33.0); MCHC 32.2 % (32.0-36.0); MCV 84 fL (80-95); MPV 10.2 fL (8.0-11.0); Monocytes % 5.8 %; Neutrophils % 57.9 %; Platelet Count 247 10^3/uL (130-400); RBC 4.61 10^6/uL (3.93-5.22); RDW 18.6 % (11.7-14.6); RDW-SD 56.4 fL; WBC 3.98 10^3/uL (4.4-10.8)
[2024-02-25 08:30] LABS: ALT 91 U/L (14-59); AST 39 U/L (15-37); Albumin 3.4 g/dL (3.4-5.0); Alkaline Phosphatase 217 U/L (46-116); BUN 12 mg/dL (7-18); Bilirubin, Total 0.16 mg/dL (0.2-1.0); C-Reactive Protein 3.27 mg/dL (<or=0.5); CREATININE 0.4 mg/dL (0.55-1.02); Calcium 9.3 mg/dL (8.5-10.1); Chloride 107 mmol/L (98-107); ESR 39 mm/hr (0-20); Estimated GFR 136.46 (mL/min/1.73m2); Glucose 85 mg/dL (74-106); Potassium 4.3 mmol/L (3.5-5.1); Sodium 142 mmol/L (136-145); Total Protein 7.4 g/dL (6.4-8.2)
[2024-02-25 08:40] LABS: Anion Gap 7.9 mmol/L (3-11); CO2 27.1 mmol/L (21.0-32.0)
== END 2024-02-24 13:22 | disposition home or self-care (01) ==
LOC: LBN 13:21
PROVIDERS: PCP Nurse Practitioner Family; Visit Provider Student in an Organized Health Care Education/Training Program
DX: L02.91 Cutaneous abscess, unspecified (principal)
CPT/HCPCS: 80053; 85652; 85025; 86140

== ENCOUNTER 2024-03-17 17:00 | Outpatient (REF) | payer MEDICAID, SELFPAY ==
[2024-03-17 15:52] LABS: Abs Immature Grans 0.02 10^3/uL (0.0-0.06); Absolute Basophil Count 0.03 10^3/uL (0.0-0.2); Absolute Eosinophil Count 0.14 10^3/uL (0.0-0.7); Absolute Lymphocyte Count 1.83 10^3/uL (1.2-3.4); Absolute Neutrophil Count 2.61 10^3/uL (1.2-6.7); Basophils % 0.6 %; Eosinophils % 2.8 %; HCT 40.8 % (36.0-46.0); HGB 12.8 g/dL (11.2-15.7); Immature Grans % 0.4 %; Lymphocytes % 37.1 %; MCH 26.9 pg (27.0-33.0); MCHC 31.4 % (32.0-36.0); MCV 86 fL (80-95); MPV 9.7 fL (8.0-11.0); Monocytes % 6.1 %; Platelet Count 408 10^3/uL (130-400); RBC 4.75 10^6/uL (3.93-5.22); RDW 17.9 % (11.7-14.6); RDW-SD 56.9 fL; WBC 4.93 10^3/uL (4.4-10.8)
[2024-03-17 16:48] LABS: ALT 62 U/L (14-59); AST 29 U/L (15-37); Albumin 3.6 g/dL (3.4-5.0); Alkaline Phosphatase 243 U/L (46-116); Anion Gap 11.1 mmol/L (3-11); BUN 12 mg/dL (7-18); Bilirubin, Total 0.19 mg/dL (0.2-1.0); CO2 25.9 mmol/L (21.0-32.0); CREATININE 0.4 mg/dL (0.55-1.02); Calcium 9.7 mg/dL (8.5-10.1); Chloride 105 mmol/L (98-107); Estimated GFR 136.46 (mL/min/1.73m2); Glucose 73 mg/dL (74-106); Potassium 4.5 mmol/L (3.5-5.1); Sodium 142 mmol/L (136-145); Total Protein 8.2 g/dL (6.4-8.2)
[2024-03-19 22:39] LABS: CRP, High Sensitivity >15.00 mg/L (See Note)
== END 2024-03-17 17:01 | disposition home or self-care (01) ==
LOC: NCHCN 17:00
PROVIDERS: PCP Nurse Practitioner Family; Visit Provider Nurse Practitioner Family
DX: Q67.5 Congenital deformity of spine (principal)
CPT/HCPCS: 80053; 86141; 85025

== ENCOUNTER 2024-03-23 14:44 | Outpatient (REF) | payer MEDICAID, SELFPAY ==
[2024-03-23 12:00] LABS: Abs Immature Grans 0.01 10^3/uL (0.0-0.06); Absolute Basophil Count 0.03 10^3/uL (0.0-0.2); Absolute Eosinophil Count 0.16 10^3/uL (0.0-0.7); Absolute Lymphocyte Count 1.74 10^3/uL (1.2-3.4); Absolute Monocyte Count 0.29 10^3/uL (0.1-0.8); Basophils % 0.7 %; Eosinophils % 3.9 %; HCT 40.1 % (36.0-46.0); HGB 12.6 g/dL (11.2-15.7); Immature Grans % 0.2 %; Lymphocytes % 42.1 %; MCHC 31.4 % (32.0-36.0); MCV 86 fL (80-95); MPV 9.8 fL (8.0-11.0); Neutrophils % 46.1 %; Platelet Count 334 10^3/uL (130-400); RBC 4.66 10^6/uL (3.93-5.22); RDW 17.9 % (11.7-14.6); RDW-SD 56.6 fL; WBC 4.13 10^3/uL (4.4-10.8)
[2024-03-23 12:08] LABS: ALT 59 U/L (14-59); AST 27 U/L (15-37); Albumin 3.5 g/dL (3.4-5.0); Alkaline Phosphatase 228 U/L (46-116); Anion Gap 10.6 mmol/L (3-11); BUN 14 mg/dL (7-18); Bilirubin, Total 0.19 mg/dL (0.2-1.0); CO2 26.4 mmol/L (21.0-32.0); CREATININE 0.5 mg/dL (0.55-1.02); Chloride 107 mmol/L (98-107); Estimated GFR 129.32 (mL/min/1.73m2); Glucose 82 mg/dL (74-106); Potassium 4.4 mmol/L (3.5-5.1); Sodium 144 mmol/L (136-145); Total Protein 7.9 g/dL (6.4-8.2)
== END 2024-03-23 14:45 | disposition home or self-care (01) ==
LOC: LBN 14:44
PROVIDERS: PCP Nurse Practitioner Family; Visit Provider Nurse Practitioner Family
DX: L02.91 Cutaneous abscess, unspecified (principal); L03.312 Cellulitis of back [any part except buttock and flank]
CPT/HCPCS: 80053; 85025

== ENCOUNTER 2024-03-31 15:04 | Outpatient (REF) | payer MEDICAID, SELFPAY ==
[2024-03-31 15:54] LABS: Abs Immature Grans 0.01 10^3/uL (0.0-0.06); Absolute Basophil Count 0.03 10^3/uL (0.0-0.2); Absolute Eosinophil Count 0.15 10^3/uL (0.0-0.7); Absolute Lymphocyte Count 1.61 10^3/uL (1.2-3.4); Absolute Monocyte Count 0.23 10^3/uL (0.1-0.8); Absolute Neutrophil Count 2.96 10^3/uL (1.2-6.7); Basophils % 0.6 %; HCT 37.6 % (36.0-46.0); HGB 11.9 g/dL (11.2-15.7); Immature Grans % 0.2 %; Lymphocytes % 32.3 %; MCH 27.2 pg (27.0-33.0); MCHC 31.6 % (32.0-36.0); MCV 86 fL (80-95); MPV 10.1 fL (8.0-11.0); Monocytes % 4.6 %; Neutrophils % 59.3 %; Platelet Count 258 10^3/uL (130-400); RBC 4.37 10^6/uL (3.93-5.22); RDW 17.6 % (11.7-14.6); RDW-SD 55.7 fL; WBC 4.99 10^3/uL (4.4-10.8)
[2024-03-31 15:59] LABS: ESR 43 mm/hr (0-20)
[2024-03-31 16:16] LABS: ALT 51 U/L (14-59); AST 24 U/L (15-37); Albumin 3.4 g/dL (3.4-5.0); Alkaline Phosphatase 230 U/L (46-116); Anion Gap 10.3 mmol/L (3-11); BUN 9 mg/dL (7-18); C-Reactive Protein 4.46 mg/dL (<or=0.5); CO2 25.7 mmol/L (21.0-32.0); CREATININE 0.5 mg/dL (0.55-1.02); Calcium 9.1 mg/dL (8.5-10.1); Chloride 105 mmol/L (98-107); Estimated GFR 129.32 (mL/min/1.73m2); Glucose 105 mg/dL (74-106); Potassium 4.1 mmol/L (3.5-5.1); Sodium 141 mmol/L (136-145); Total Protein 7.2 g/dL (6.4-8.2)
== END 2024-03-31 15:05 | disposition home or self-care (01) ==
LOC: NCHCN 15:04
PROVIDERS: PCP Nurse Practitioner Family; Visit Provider Nurse Practitioner Family
DX: L03.312 Cellulitis of back [any part except buttock and flank] (principal)
CPT/HCPCS: 80053; 85652; 85025; 86140

== ENCOUNTER 2024-04-07 13:06 | Outpatient (REF) | payer MEDICAID, SELFPAY ==
[2024-04-07 13:32] LABS: Abs Immature Grans 0.01 10^3/uL (0.0-0.06); Absolute Basophil Count 0.02 10^3/uL (0.0-0.2); Absolute Eosinophil Count 0.06 10^3/uL (0.0-0.7); Absolute Lymphocyte Count 1.29 10^3/uL (1.2-3.4); Absolute Monocyte Count 0.31 10^3/uL (0.1-0.8); Basophils % 0.5 %; Eosinophils % 1.6 %; HCT 36.8 % (36.0-46.0); HGB 11.8 g/dL (11.2-15.7); Immature Grans % 0.3 %; Lymphocytes % 35.1 %; MCH 27.5 pg (27.0-33.0); MCHC 32.1 % (32.0-36.0); MCV 86 fL (80-95); MPV 9.6 fL (8.0-11.0); Monocytes % 8.4 %; Neutrophils % 54.1 %; Platelet Count 237 10^3/uL (130-400); RBC 4.29 10^6/uL (3.93-5.22); RDW 18.1 % (11.7-14.6); RDW-SD 56.4 fL; WBC 3.67 10^3/uL (4.4-10.8)
[2024-04-07 13:33] LABS: Absolute Neutrophil Count 1.99 10^3/uL (1.2-6.7); ESR 52 mm/hr (0-20)
[2024-04-07 13:45] LABS: ALT 46 U/L (14-59); AST 24 U/L (15-37); Albumin 3.3 g/dL (3.4-5.0); Alkaline Phosphatase 246 U/L (46-116); Anion Gap 11.3 mmol/L (3-11); BUN 10 mg/dL (7-18); Bilirubin, Total 0.16 mg/dL (0.2-1.0); C-Reactive Protein 4.68 mg/dL (<or=0.5); CO2 24.7 mmol/L (21.0-32.0); CREATININE 0.5 mg/dL (0.55-1.02); Chloride 104 mmol/L (98-107); Estimated GFR 129.32 (mL/min/1.73m2); Glucose 67 mg/dL (74-106); Potassium 4.3 mmol/L (3.5-5.1); Sodium 140 mmol/L (136-145); Total Protein 7.6 g/dL (6.4-8.2)
== END 2024-04-07 13:07 | disposition home or self-care (01) ==
LOC: NCHCN 13:06
PROVIDERS: PCP Nurse Practitioner Family; Visit Provider Nurse Practitioner Family
DX: L03.312 Cellulitis of back [any part except buttock and flank]
CPT/HCPCS: 80053; 85652; 85025; 86140

== ENCOUNTER 2024-04-13 10:10 | Outpatient (REF) | payer MEDICAID, SELFPAY ==
[2024-04-13 11:44] LABS: Absolute Basophil Count 0.01 10^3/uL (0.0-0.2); Absolute Eosinophil Count 0.06 10^3/uL (0.0-0.7); Absolute Lymphocyte Count 1.35 10^3/uL (1.2-3.4); Absolute Monocyte Count 0.14 10^3/uL (0.1-0.8); Absolute Neutrophil Count 1.49 10^3/uL (1.2-6.7); Basophils % 0.3 %; HCT 38.4 % (36.0-46.0); HGB 12.5 g/dL (11.2-15.7); Lymphocytes % 44.3 %; MCH 27.8 pg (27.0-33.0); MCHC 32.6 % (32.0-36.0); MCV 86 fL (80-95); MPV 9.9 fL (8.0-11.0); Monocytes % 4.6 %; Neutrophils % 48.8 %; Platelet Count 235 10^3/uL (130-400); RBC 4.49 10^6/uL (3.93-5.22); RDW 17.9 % (11.7-14.6); RDW-SD 56.6 fL; WBC 3.05 10^3/uL (4.4-10.8)
[2024-04-13 11:45] LABS: ESR 48 mm/hr (0-20)
[2024-04-13 12:15] LABS: ALT 53 U/L (14-59); AST 34 U/L (15-37); Albumin 3.3 g/dL (3.4-5.0); Alkaline Phosphatase 246 U/L (46-116); Anion Gap 15.4 mmol/L (3-11); BUN 11 mg/dL (7-18); Bilirubin, Total 0.12 mg/dL (0.2-1.0); C-Reactive Protein 2.47 mg/dL (<or=0.5); CO2 20.6 mmol/L (21.0-32.0); CREATININE 0.6 mg/dL (0.55-1.02); Calcium 8.7 mg/dL (8.5-10.1); Chloride 105 mmol/L (98-107); Estimated GFR 123.76 (mL/min/1.73m2); Glucose 153 mg/dL (74-106); Potassium 4.1 mmol/L (3.5-5.1); Sodium 141 mmol/L (136-145); Total Protein 7.6 g/dL (6.4-8.2)
== END 2024-04-13 10:11 | disposition home or self-care (01) ==
LOC: NCHCN 10:10
PROVIDERS: PCP Nurse Practitioner Family; Visit Provider Nurse Practitioner Family
DX: L02.91 Cutaneous abscess, unspecified (principal); Z79.2 Long term (current) use of antibiotics
CPT/HCPCS: 80053; 85652; 85025; 86140

== ENCOUNTER 2024-04-21 10:55 | Outpatient (REF) | payer MEDICAID, SELFPAY ==
[2024-04-21 12:35] LABS: Abs Immature Grans 0.01 10^3/uL (0.0-0.06); Absolute Basophil Count 0.02 10^3/uL (0.0-0.2); Absolute Eosinophil Count 0.03 10^3/uL (0.0-0.7); Absolute Lymphocyte Count 1.32 10^3/uL (1.2-3.4); Absolute Monocyte Count 0.14 10^3/uL (0.1-0.8); Absolute Neutrophil Count 1.81 10^3/uL (1.2-6.7); Basophils % 0.6 %; Eosinophils % 0.9 %; HGB 12.8 g/dL (11.2-15.7); Immature Grans % 0.3 %; Lymphocytes % 39.6 %; MCH 27.5 pg (27.0-33.0); MCV 86 fL (80-95); MPV 9.9 fL (8.0-11.0); Monocytes % 4.2 %; Neutrophils % 54.4 %; Platelet Count 215 10^3/uL (130-400); RBC 4.65 10^6/uL (3.93-5.22); RDW 17.2 % (11.7-14.6); RDW-SD 54.3 fL; WBC 3.33 10^3/uL (4.4-10.8)
[2024-04-21 12:39] LABS: ESR 38 mm/hr (0-20)
[2024-04-21 12:46] LABS: ALT 87 U/L (14-59); AST 47 U/L (15-37); Albumin 3.5 g/dL (3.4-5.0); Alkaline Phosphatase 261 U/L (46-116); Anion Gap 10.4 mmol/L (3-11); BUN 9 mg/dL (7-18); Bilirubin, Total 0.15 mg/dL (0.2-1.0); C-Reactive Protein 2.51 mg/dL (<or=0.5); CO2 25.6 mmol/L (21.0-32.0); CREATININE 0.5 mg/dL (0.55-1.02); Calcium 8.8 mg/dL (8.5-10.1); Chloride 105 mmol/L (98-107); Estimated GFR 129.32 (mL/min/1.73m2); Glucose 108 mg/dL (74-106); Sodium 141 mmol/L (136-145); Total Protein 7.5 g/dL (6.4-8.2)
== END 2024-04-21 10:56 | disposition home or self-care (01) ==
LOC: NCHCN 10:55
PROVIDERS: PCP Nurse Practitioner Family; Visit Provider Nurse Practitioner Family
DX: L03.312 Cellulitis of back [any part except buttock and flank] (principal)
CPT/HCPCS: 80053; 85652; 85025; 86140

== ENCOUNTER 2024-05-05 11:17 | Outpatient (REF) | payer MEDICAID, SELFPAY ==
[2024-05-05 11:58] LABS: Abs Immature Grans 0.01 10^3/uL (0.0-0.06); Absolute Basophil Count 0.02 10^3/uL (0.0-0.2); Absolute Eosinophil Count 0.02 10^3/uL (0.0-0.7); Absolute Lymphocyte Count 1.23 10^3/uL (1.2-3.4); Absolute Monocyte Count 0.37 10^3/uL (0.1-0.8); Absolute Neutrophil Count 3.43 10^3/uL (1.2-6.7); Basophils % 0.4 %; Eosinophils % 0.4 %; HCT 37.9 % (36.0-46.0); HGB 12.3 g/dL (11.2-15.7); Immature Grans % 0.2 %; Lymphocytes % 24.2 %; MCHC 32.5 % (32.0-36.0); MCV 86 fL (80-95); MPV 9.6 fL (8.0-11.0); Monocytes % 7.3 %; Neutrophils % 67.5 %; Platelet Count 275 10^3/uL (130-400); RBC 4.39 10^6/uL (3.93-5.22); RDW-SD 53.7 fL; WBC 5.08 10^3/uL (4.4-10.8)
[2024-05-05 11:59] LABS: ESR 57 mm/hr (0-20)
[2024-05-05 12:19] LABS: ALT 56 U/L (14-59); AST 17 U/L (15-37); Albumin 3.3 g/dL (3.4-5.0); Alkaline Phosphatase 288 U/L (46-116); Anion Gap 8.6 mmol/L (3-11); BUN 8 mg/dL (7-18); Bilirubin, Total 0.18 mg/dL (0.2-1.0); C-Reactive Protein 8.86 mg/dL (<or=0.5); CO2 29.4 mmol/L (21.0-32.0); CREATININE 0.4 mg/dL (0.55-1.02); Calcium 8.5 mg/dL (8.5-10.1); Chloride 103 mmol/L (98-107); Estimated GFR 136.46 (mL/min/1.73m2); Glucose 99 mg/dL (74-106); Potassium 3.9 mmol/L (3.5-5.1); Sodium 141 mmol/L (136-145); Total Protein 7.6 g/dL (6.4-8.2)
== END 2024-05-05 11:18 | disposition home or self-care (01) ==
LOC: NCHCN 11:17
PROVIDERS: PCP Nurse Practitioner Family; Visit Provider Nurse Practitioner Family
DX: L02.91 Cutaneous abscess, unspecified (principal); Z79.2 Long term (current) use of antibiotics
CPT/HCPCS: 80053; 85652; 85025; 86140

== ENCOUNTER 2024-05-16 11:44 | Outpatient (REF) | payer MEDICAID, SELFPAY ==
[2024-05-16 11:41] LABS: Abs Immature Grans 0.01 10^3/uL (0.0-0.06); Absolute Basophil Count 0.02 10^3/uL (0.0-0.2); Absolute Eosinophil Count 0.01 10^3/uL (0.0-0.7); Absolute Lymphocyte Count 1.63 10^3/uL (1.2-3.4); Absolute Monocyte Count 0.25 10^3/uL (0.1-0.8); Absolute Neutrophil Count 1.77 10^3/uL (1.2-6.7); Basophils % 0.5 %; Eosinophils % 0.3 %; HCT 39.8 % (36.0-46.0); HGB 12.8 g/dL (11.2-15.7); Immature Grans % 0.3 %; Lymphocytes % 44.2 %; MCH 27.8 pg (27.0-33.0); MCHC 32.2 % (32.0-36.0); MCV 86 fL (80-95); MPV 9.6 fL (8.0-11.0); Monocytes % 6.8 %; Neutrophils % 47.9 %; Platelet Count 302 10^3/uL (130-400); RBC 4.61 10^6/uL (3.93-5.22); RDW 16.4 % (11.7-14.6); RDW-SD 51.3 fL; WBC 3.69 10^3/uL (4.4-10.8)
[2024-05-16 11:55] LABS: ALT 67 U/L (14-59); AST 28 U/L (15-37); Albumin 3.4 g/dL (3.4-5.0); Alkaline Phosphatase 256 U/L (46-116); BUN 14 mg/dL (7-18); Bilirubin, Total 0.16 mg/dL (0.2-1.0); C-Reactive Protein 2.76 mg/dL (<or=0.5); CREATININE 0.5 mg/dL (0.55-1.02); Calcium 9.2 mg/dL (8.5-10.1); Chloride 105 mmol/L (98-107); ESR 49 mm/hr (0-20); Estimated GFR 129.32 (mL/min/1.73m2); Glucose 80 mg/dL (74-106); Potassium 4.4 mmol/L (3.5-5.1); Sodium 140 mmol/L (136-145); Total Protein 7.6 g/dL (6.4-8.2)
== END 2024-05-16 11:45 | disposition home or self-care (01) ==
LOC: LBN 11:44
PROVIDERS: PCP Nurse Practitioner Family; Visit Provider Nurse Practitioner Family
DX: L02.91 Cutaneous abscess, unspecified (principal); Z79.2 Long term (current) use of antibiotics
CPT/HCPCS: 80053; 85652; 85025; 86140

== ENCOUNTER 2024-05-25 17:26 | Observation (INO) | payer MEDICAID, SELFPAY ==
[2024-05-25] VITALS (51 sets, daily range): BP systolic 68–118; BP diastolic 36–76; PULSE 93–140; RESP 11–27; TEMP 36.3–36.6; O2SAT 93–100
[2024-05-25] MEDS: Normal Saline 1,000 ML 1000 ML IV ×3 (18:45→23:20)
[2024-05-25 19:02] LABS: Abs Immature Grans 0.03 10^3/uL (0.0-0.06); Absolute Basophil Count 0.02 10^3/uL (0.0-0.2); Absolute Monocyte Count 0.29 10^3/uL (0.1-0.8); Absolute Neutrophil Count 9.68 10^3/uL (1.2-6.7); Basophils % 0.2 %; HCT 44.7 % (36.0-46.0); HGB 14.3 g/dL (11.2-15.7); Immature Grans % 0.3 %; Lymphocytes % 2.9 %; MCV 88 fL (80-95); MPV 9.3 fL (8.0-11.0); Monocytes % 2.8 %; Neutrophils % 93.8 %; Platelet Count 276 10^3/uL (130-400); RDW-SD 50.7 fL; WBC 10.32 10^3/uL (4.4-10.8)
[2024-05-25] MEDS: Ondansetron 4 MG/2 ML VIAL IVP (19:04)
[2024-05-25 19:10] LABS: ESR 39 mm/hr (0-20)
[2024-05-25 19:21] LABS: ALT 68 U/L (14-59); AST 33 U/L (15-37); Albumin 3.6 g/dL (3.4-5.0); Alkaline Phosphatase 256 U/L (46-116); Anion Gap 7.4 mmol/L (3-11); BUN 11 mg/dL (7-18); Bilirubin, Total 0.23 mg/dL (0.2-1.0); C-Reactive Protein 3.57 mg/dL (<or=0.5); CO2 27.6 mmol/L (21.0-32.0); CREATININE 0.7 mg/dL (0.55-1.02); Calcium 9.1 mg/dL (8.5-10.1); Chloride 106 mmol/L (98-107); Estimated GFR 119.24 (mL/min/1.73m2); Glucose 131 mg/dL (74-106); Magnesium 1.7 mg/dL (1.8-2.4); Potassium 3.8 mmol/L (3.5-5.1); Sodium 141 mmol/L (136-145); Total Protein 8.5 g/dL (6.4-8.2)
[2024-05-25 19:33] LABS: HCG Qual (Serum) Negative
[2024-05-25 19:40] LABS: Bilirubin Negative (Negative); Blood Moderate (Negative); Clarity Clear (Clear); Glucose Negative (Negative); Ketones Negative (Negative); Leukocyte Esterase Negative (Negative); Nitrite Negative (Negative); Specific Gravity >= 1.030 (1.005-1.025); Urobilinogen 0.2 mg/dL (Up to 0.2)
--- NOTE | 2024-05-25 19:44 | DI.RAD_ITS ---
Exam(s) XR CHEST 2V PA LATERAL EXAM: XR CHEST 2V PA LATERAL CLINICAL HISTORY: vomiting, ? aspiration. TECHNIQUE: 2D digital imaging was performed. COMPARISON: CR XR PORTABLE CHEST AP from 03/04/2023 FINDINGS: 2 views: Chronic thoracic deformity. Mcnair rods again noted. Heart size is normal. The mediastinum is not widened. No obvious lung infiltrates nor pleural effusions. No pneumothorax. No fractures. IMPRESSION: No obvious acute pulmonary findings. DATA REPOSITORY: RADIATION DOSE DELIVERED:
[2024-05-25 19:45] LABS: Bacteria Negative HPF (Negative); C & S Indicated? No; Crystals Negative HPF (Negative); Epithelial Cells Negative HPF (Negative); Mucus Negative (Negative); WBC Negative HPF (0-5)
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
[2024-05-25] MEDS: ACETAMINOPHEN 1,000 MG/100 ML BAG 400 MG IVPB (22:02)
[2024-05-25] MEDS: Baclofen 10 MG TAB 15 MG PO (22:02)
[2024-05-25] MEDS: Sulfameth/Trimeth DS TAB 1 TAB PO (22:02)
[2024-05-25] MEDS: Normal Saline - Diluent 50 ML VIAL IJ (22:13)
[2024-05-25] MEDS: Omnipaque 350 MG/ML 100 ML BTL 75 ML IJ (22:15)
--- NOTE | 2024-05-25 22:15 | RT.EKG_ITS ---
APPROVED REPORT Exam: Resting ECG Reason for Exam: tachyardia Patient Location: E HR:121 bpm ECG Measurements Heart Rate 121 AXIS HI 171 P 48 QRSd 83 QRS -1 QT 324 T 40 QTc 460 Conclusion Sinus tachycardia...rate> 99 Low voltage, precordial leads...precordial leads <1.0mV appropriate intervals no ST segment or T wave abnormalities to suggest occlusive [place]
[2024-05-25] MEDS: MORPHine 4 MG/ML SYR 2 MG IVP (22:43)
[2024-05-25] MEDS: Ketorolac 15 MG/ML VIAL IVP (22:43)
--- NOTE | 2024-05-25 22:44 | DI.CT_ITS ---
Exam(s) CT ABDOMEN PELVIS W EXAM: CT ABDOMEN PELVIS W CLINICAL HISTORY: ? abdominal pain, vomiting TECHNIQUE: Imaging Protocol: Axial computed tomography images with coronal and sagittal reformatted images were created and reviewed. CONTRAST MATERIAL: Intravenous: Omnipaque 350 Contrast volume:75 mL Oral: No COMPARISON: CR XR HIP PELVIS ADULT BL from 06/10/2023 FINDINGS: There is artifact from the patient's spinal rods. The examination is limited due to patient motion ar tifact. ABDOMEN: Lung Bases: No acute abnormality. Liver: Normal density. No measurable mass. Portal, Superior Mesenteric, and Splenic Veins: Unremarkable. Gallbladder and Biliary Tract: No radiodense calculus or dilation. Pancreas: Normal density, no abnormal calcifications or inflammatory process. Spleen: Normal. Adrenals: No masses seen. Kidneys: Normal size, contour and axis. Bilateral nephrolithiasis. No obstructive uropathy. No mass es seen. Abdominal Aorta: Abdominal portion non-dilated. Bowel: There is mild thickening of the wall of the rectum. There is stool seen in the colon particul reynaldo the rectum and stercoral colitis cannot be excluded. There are diverticula seen in the colon bu t no evidence of acute diverticulitis. There is no evidence of bowel obstruction. No evidence of ap pendicitis. Peritoneal Cavity: No ascites, collection or mesenteric inflammatory response. No free air. Lymph Nodes: Within normal limits. Bones: There is limited visualization of the spine secondary to artifact from the patient's spinal ro ds. Stable chronic deformity of the hips are seen bilaterally. Soft Tissues: There is fatty atrophy of the pelvic muscles and the muscles of the thigh. PELVIS: Bladder: The urinary bladder is incompletely distended. There is diffuse thickening of the wall of t he bladder which may reflect underdistention. Cystitis cannot be excluded. Reproductive Organs: Unremarkable as visualized. Lymph Nodes: Within normal limits. Bones: Within normal limits for the patient's age. IMPRESSION: 1. Thickening of the wall of the rectosigmoid colon. There is stool seen within the rectosigmoid col on. This may represent colitis, particularly stercoral colitis. 2. Thickening of the wall of the urinary bladder. This may be due to underdistention but cystitis ca nnot be excluded. Please correlate clinically. RADIATION DOSE DELIVERED: 1,033.05mGy.cm Total DLP DATA REPOSITORY: All CT scans at this facility are submitted to the National Radiology Data Registry (NRDR) Dose Index Registry (DIR) with the [employer] (ACR). RADIATION OPTIMIZATION: All CT scans at this facility use at least one of these dose optimization te chniques: automated exposure control; mA and/or kV adjustment per patient size (includes targeted exa ms where dose is matched to clinical indication); or iterative reconstruction.
[2024-05-25 22:56] LABS: Lactate 3.4 mmol/L (<or=2.0)
--- NOTE | 2024-05-25 23:21 | DI.VRAD_ITS ---
PROCEDURE INFORMATION: Exam: CT Abdomen And Pelvis With Contrast Exam date and time: 05/25/2024 10:14 PM Age: 28 years old Clinical indication: Abdominal pain, vomiting; Prior surgery; date: 6+ months: 3 spine surgeries, other hip surgeries. TECHNIQUE: Imaging protocol: Computed tomography of the abdomen and pelvis with contrast. Contrast material: OMNIPAQUE 350; Contrast volume: 75 ml; Contrast route: INTRAVENOUS (IV); COMPARISON: CR XR HIP PELVIS ADULT BL 06/10/2023 11:04 AM FINDINGS: Lungs: Minimal atelectasis in the posterior left lung base. Liver: Normal. No mass. Gallbladder and biliary ducts: Normal. No calcified stones. No ductal dilation. Pancreas: Normal. No ductal dilation. Spleen: Normal. No splenomegaly. Adrenal glands: Normal. No mass. Kidneys and ureters: No hydronephrosis. No calcified renal or ureteral stones. No perinephric stranding or perinephric fluid. Stomach and bowel: No bowel obstruction. Mild wall thickening of the rectosigmoid colon region which may reflect a focal colitis. Appendix: Normal appendix. Intraperitoneal space: No free air. No significant fluid collection. Vasculature: The abdominal aorta is normal in caliber without aneurysm or dissection. Lymph nodes: No enlarged lymph nodes. Urinary bladder: Unremarkable as visualized. Reproductive: Prior hysterectomy. Bones/joints: Prior spinal surgery. Old deformity of each proximal femur. Soft tissues: Radiopaque drainage catheter tip located right posterior to the lumbosacral area. Scattered areas of muscular atrophy. IMPRESSION: 1. No bowel obstruction. 2. Mild wall thickening of the rectosigmoid colon region which may reflect a focal colitis. Dictated and Authenticated by: Troy Gill MD. Orderin Evette Griffin MD
[2024-05-26] VITALS (24 sets, daily range): BP systolic 71–104; BP diastolic 28–68; PULSE 91–108; RESP 13–20; TEMP 35.8–36.5; O2SAT 95–97
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
[2024-05-26] MEDS: Lactated Ringers 1,000 ML 100 ML IV ×2 (00:53→13:28)
--- NOTE | 2024-05-26 02:22 | W.PC.ACHO ---
Registration Status: Primary Language: Preferred Language: ED Information & Data Chief Complaint Nausea/Vomit/Diar 05/25/24 20:31 Triage Note Pt arrives to ED c/o 05/25/24 17:27 vomiting since noon today. Pt's caregiver states pt's O2 began to drop while she was vomiting d/t the frequency of vomiting. Caregiver also states pt gets dehydrated easily; decreased PO intake today. Pt has a chronic spinal infection per caregiver that she is on ABX for. 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 Presence of intrathecal baclofen pump Scoliosis Femur fracture Quadriplegic cerebral palsy (Last Reviewed 05/26/24 @ 00:25 by Jamaal Márquez MD) hip release Mediport placement Most Recent Vital Signs Temperature 36.3 C L 05/25/24 21:39 Temperature Source Temporal Artery Scan 05/25/24 21:39 Pulse 92 H 05/26/24 01:46 Pulse 93 H 05/26/24 01:46 Respiratory Rate 18 05/26/24 01:46 Blood Pressure 93/41 L 05/26/24 01:46 Blood Pressure Mean 59 05/26/24 01:46 Blood Pressure Position Sitting 05/25/24 17:44 Pulse Oximetry 95 05/25/24 23:51 Oxygen Delivery Method Room Air 05/25/24 17:44 Oxygen Flow Rate 0 05/25/24 17:44 Pain Level 4 05/25/24 17:44 Comment confirmed w/ manual 05/26/24 01:38 Allergies vancomycin Allergy (Severe, Verified 05/25/24 18:03) Other (See Comment) Toxic blood levels per pt's caregiver 05/25/24 doxycycline Allergy (Intermediate, Verified 05/25/24 18:03) Other (See Comment) Rash, throat swelling silver (From Tegaderm AG Mesh) Allergy (Mild, Verified 05/25/24 18:03) Topical Irritation cyclobenzaprine Allergy (Unknown, Unverified 05/25/24 18:03) Unknown fluoxetine Adverse Reaction (Unknown, Unverified 03/04/23 19:37) Per caregiver Penicillins Adverse Reaction (Unknown, Unverified 03/04/23 19:37) Other (See Comment) Treating her as allergic d/t mom being allergic oper care providers Precautions Isolation Contact precaution 05/25/24 17:44 Active Medications Generic Name Dose Route Start Last Admin Trade Name Lucy PRN Reason Stop Dose Admin Ringer's Solution 1,000 mls @ 100 mls/hr 05/26/24 00:45 05/26/24 00:53 IV 100 mls/hr INFUSION MARIANA Administration Iohexol 75 ml 05/25/24 22:15 05/25/24 22:15 Omnipaque 350 Mg/Ml 100 Ml Btl IJ 06/24/24 23:59 75 ml DIRECTED MARIANA Administration Sodium Chloride 50 ml 05/25/24 22:15 05/25/24 22:13 Normal Saline - Diluent 50 Ml Vial IJ 50 ml .FOR DI USE MARIANA Administration IV IV Catheter Type [Left Forearm Peripheral IV ] IV Catheter Gauge [Left 20 Forearm] Diet Orders Category Date Time Status Nothing Per Oral [DIET] Nutrition 05/26/24 Breakfast Active Diagnostics 05/26/24 05/25/24 05/25/24 Range/Units 05:35 22:50 19:25 WBC (4.4-10.8) 10^3/uL RBC (3.93-5.22) 10^6/uL Hgb (11.2-15.7) g/dL Hct (36.0-46.0) % MCV (80-95) fL MCH (27.0-33.0) pg MCHC (32.0-36.0) % RDW (11.7-14.6) % Plt Count (130-400) 10^3/uL MPV (8.0-11.0) fL Immature Gran % % Neutrophils % % Lymphocytes % % Monocytes % % Eosinophils % % Basophils % % Nucleated RBC % (0.0-0.3) % Absolute Neutrophils (1.2-6.7) 10^3/uL Absolute Lymphocytes (1.2-3.4) 10^3/uL Absolute Monocytes (0.1-0.8) 10^3/uL Absolute Eosinophils (0.0-0.7) 10^3/uL Absolute Basophils (0.0-0.2) 10^3/uL ESR (0-20) mm/hr VBG Lactate 3.4 H* (<or=2.0) mmol/L Sodium Pending (136-145) mmol/L Potassium Pending (3.5-5.1) mmol/L Chloride Pending (98-107) mmol/L Carbon Dioxide Pending (21.0-32.0) mmol/L Anion Gap Pending (3-11) mmol/L BUN Pending (7-18) mg/dL Creatinine Pending (0.55-1.02) mg/dL Est GFR (CKD-EPI 2020) Pending (mL/min/1.73m2) Glucose Pending (74-106) mg/dL Calcium Pending (8.5-10.1) mg/dL Magnesium (1.8-2.4) mg/dL Total Bilirubin (0.2-1.0) mg/dL AST (15-37) U/L ALT (14-59) U/L Alkaline Phosphatase (46-116) U/L C-Reactive Protein (<or=0.5) mg/dL Total Protein (6.4-8.2) g/dL Albumin (3.4-5.0) g/dL Serum HCG, Qual Urine Color Yellow (Yellow) Urine Clarity Clear (Clear) Urine pH 6.0 (5-8) Ur Specific [place] >= 1.030 H (1.005-1.025) Urine Protein 30 H (Neg-Trace) mg/dL Urine Ketones Negative (Negative) mg/dL Urine Blood Moderate H (Negative) Urine Nitrite Negative (Negative) Urine Bilirubin Negative (Negative) Urine Urobilinogen 0.2 (Up to 0.2) mg/dL Ur Leukocyte Esterase Negative (Negative) Urine RBC 10-20 H (0-2) HPF Urine WBC Negative (0-5) HPF Ur Epithelial Cells Negative (Negative) HPF Urine Crystals Negative (Negative) HPF Urine Bacteria Negative (Negative) HPF Urine Mucus Negative (Negative) Ur Culture Indicated? No Urine Glucose Negative (Negative) mg/dL 05/25/24 Range/Units 18:52 WBC 10.32 (4.4-10.8) 10^3/uL RBC 5.10 (3.93-5.22) 10^6/uL Hgb 14.3 (11.2-15.7) g/dL Hct 44.7 (36.0-46.0) % MCV 88 (80-95) fL MCH 28.0 (27.0-33.0) pg MCHC 32.0 (32.0-36.0) % RDW 16.0 H (11.7-14.6) % Plt Count 276 (130-400) 10^3/uL MPV 9.3 (8.0-11.0) fL Immature Gran % 0.3 % Neutrophils % 93.8 % Lymphocytes % 2.9 % Monocytes % 2.8 % Eosinophils % 0.0 % Basophils % 0.2 % Nucleated RBC % 0.0 (0.0-0.3) % Absolute Neutrophils 9.68 H (1.2-6.7) 10^3/uL Absolute Lymphocytes 0.30 L (1.2-3.4) 10^3/uL Absolute Monocytes 0.29 (0.1-0.8) 10^3/uL Absolute Eosinophils 0.00 (0.0-0.7) 10^3/uL Absolute Basophils 0.02 (0.0-0.2) 10^3/uL ESR 39 H (0-20) mm/hr VBG Lactate (<or=2.0) mmol/L Sodium 141 (136-145) mmol/L Potassium 3.8 (3.5-5.1) mmol/L Chloride 106 (98-107) mmol/L Carbon Dioxide 27.6 (21.0-32.0) mmol/L Anion Gap 7.4 (3-11) mmol/L BUN 11 (7-18) mg/dL Creatinine 0.7 (0.55-1.02) mg/dL Est GFR (CKD-EPI 2020) 119.24 (mL/min/1.73m2) Glucose 131 H (74-106) mg/dL Calcium 9.1 (8.5-10.1) mg/dL Magnesium 1.7 L (1.8-2.4) mg/dL Total Bilirubin 0.23 (0.2-1.0) mg/dL AST 33 (15-37) U/L ALT 68 H (14-59) U/L Alkaline Phosphatase 256 H (46-116) U/L C-Reactive Protein 3.57 H (<or=0.5) mg/dL Total Protein 8.5 H (6.4-8.2) g/dL Albumin 3.6 (3.4-5.0) g/dL Serum HCG, Qual Negative Urine Color (Yellow) Urine Clarity (Clear) Urine pH (5-8) Ur Specific [place] (1.005-1.025) Urine Protein (Neg-Trace) mg/dL Urine Ketones (Negative) mg/dL Urine Blood (Negative) Urine Nitrite (Negative) Urine Bilirubin (Negative) Urine Urobilinogen (Up to 0.2) mg/dL Ur Leukocyte Esterase (Negative) Urine RBC (0-2) HPF Urine WBC (0-5) HPF Ur Epithelial Cells (Negative) HPF Urine Crystals (Negative) HPF Urine Bacteria (Negative) HPF Urine Mucus (Negative) Ur Culture Indicated? Urine Glucose (Negative) mg/dL Intake and Output - 24 Hour Total 05/25/24 17:26 thru 05/25/24 22:17 Intake Total 2100 Output Total 75 Balance 2024 Weight 55.792 kg Intake: IV 2100 Output: Urine 75 Other: Urine Color Pale Yellow Urine Appearance Clear Falls Risk Assessment History of Falls No History 05/25/24 17:44 Contributing Factors Unstable 05/25/24 17:44 Ambulatory Aids Independent 05/25/24 17:44 Tubes/Lines W/no contributing factors 05/25/24 17:44 Gait Evaluation W/no contributing factors 05/25/24 17:44 Cognition Cognitive impairment 05/25/24 17:44 Fall Total Score 38 05/25/24 17:44 Level of Risk Moderate Risk 05/25/24 17:44 Problems (Last Reviewed 05/26/24 @ 00:25 by Jamaal Márquez MD) Vomiting (Acute) v v v v v v v v v Sending and/or Receiving Nurses: Please use comment section below to note any information pertinent to the patient hand-off not included above. Information / Comments:vomiting since noon, none in er. on 4th bag of LR. had 1gm tylenol, morphine and toradol given. has spinal hardware that is chronically infected. on ABX for them. CARMELLA drain in place. no skin breakdown noted. quadraplegic, non-verbal communicates with caregiver. IV left wrist with coban holding it in place. Very allergice to tegederm. Report received from:SHABNAM RN
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
[2024-05-26] MEDS: Baclofen 10 MG TAB 15 MG PO ×3 (09:20→21:11)
[2024-05-26] MEDS: Nystatin POWDER 15 GM JAR TP (10:00)
[2024-05-26] MEDS: MAGNESIUM SULFATE 2 GM/50 ML BAG IV_INF (13:19)
[2024-05-26 13:45] LABS: Anion Gap 2.1 mmol/L (3-11); BUN 4 mg/dL (7-18); CO2 29.9 mmol/L (21.0-32.0); CREATININE 0.3 mg/dL (0.55-1.02); Calcium 7.6 mg/dL (8.5-10.1); Chloride 109 mmol/L (98-107); Estimated GFR 146.26 (mL/min/1.73m2); Glucose 85 mg/dL (74-106); Potassium 3.2 mmol/L (3.5-5.1); Sodium 141 mmol/L (136-145)
[2024-05-26 14:04] LABS: Lactate 0.7 mmol/L (<or=2.0)
[2024-05-26] MEDS: Potassium Chloride 20 MEQ TABCR 40 MEQ PO (16:32)
[2024-05-26] MEDS: POTASSIUM CHLORIDE 20 MEQ/100 ML BAG 50 MEQ IV_INF ×2 (16:33→18:30)
[2024-05-26] MEDS: Sulfameth/Trimeth DS TAB 1 TAB PO (21:11)
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
[2024-05-26] MEDS: Normal Saline Flush 10 ML SYR IVP (21:12)
== END 2024-05-26 22:11 | disposition home health service (06) ==
LOC: ER 05-26 00:50 → MS 05-26 02:21
PROVIDERS: Nurse Practitioner Acute Care; Admitting Provider General Practice; Emergency Provider Student in an Organized Health Care Education/Training Program; PCP Nurse Practitioner Family; Visit Provider General Practice
DX: R11.10 Vomiting, unspecified (principal); G80.0 Spastic quadriplegic cerebral palsy; F88 Other disorders of psychological development; Z79.2 Long term (current) use of antibiotics; T74.4XXS Shaken infant syndrome, sequela; I47.10 Supraventricular tachycardia, unspecified; R93.3 Abnormal findings on diagnostic imaging of other parts of digestive tract; Z79.899 Other long term (current) drug therapy; Z98.1 Arthrodesis status
CPT/HCPCS: 00123; 36415; 51701; 80048; 80053; 85652; 93005; 96361; 96365; 96366; 96375; 99285; 71046; 74177; 81003; 81015; 83605; 83735; 84703; 85025; 86140; 93010; 99236; J0131; J1885; J2270; J2405; J3475; J3480; J3490

== ENCOUNTER 2024-06-03 17:55 | Outpatient (REF) | payer MEDICAID, SELFPAY ==
[2024-06-03 13:25] LABS: Abs Immature Grans 0.03 10^3/uL (0.0-0.06); Absolute Basophil Count 0.01 10^3/uL (0.0-0.2); Absolute Lymphocyte Count 1.63 10^3/uL (1.2-3.4); Absolute Monocyte Count 0.28 10^3/uL (0.1-0.8); Absolute Neutrophil Count 2.97 10^3/uL (1.2-6.7); Basophils % 0.2 %; HCT 38.1 % (36.0-46.0); HGB 12.1 g/dL (11.2-15.7); Immature Grans % 0.6 %; Lymphocytes % 33.1 %; MCH 27.9 pg (27.0-33.0); MCHC 31.8 % (32.0-36.0); MCV 88 fL (80-95); MPV 9.7 fL (8.0-11.0); Monocytes % 5.7 %; Neutrophils % 60.4 %; Platelet Count 309 10^3/uL (130-400); RBC 4.33 10^6/uL (3.93-5.22); RDW 16.7 % (11.7-14.6); RDW-SD 53.6 fL; WBC 4.92 10^3/uL (4.4-10.8)
[2024-06-03 13:27] LABS: ESR 44 mm/hr (0-20)
[2024-06-03 13:39] LABS: ALT 89 U/L (14-59); AST 33 U/L (15-37); Albumin 3.3 g/dL (3.4-5.0); Alkaline Phosphatase 271 U/L (46-116); Anion Gap 6.5 mmol/L (3-11); BUN 13 mg/dL (7-18); Bilirubin, Total 0.27 mg/dL (0.2-1.0); CO2 28.5 mmol/L (21.0-32.0); CREATININE 0.5 mg/dL (0.55-1.02); Calcium 9.2 mg/dL (8.5-10.1); Chloride 104 mmol/L (98-107); Estimated GFR 129.32 (mL/min/1.73m2); Glucose 89 mg/dL (74-106); Magnesium 1.8 mg/dL (1.8-2.4); Potassium 4.3 mmol/L (3.5-5.1); Sodium 139 mmol/L (136-145); Total Protein 7.3 g/dL (6.4-8.2)
== END 2024-06-03 17:56 | disposition home or self-care (01) ==
LOC: NCHCN 17:55
PROVIDERS: PCP Nurse Practitioner Family; Visit Provider Nurse Practitioner Family
DX: L02.91 Cutaneous abscess, unspecified (principal); Z79.2 Long term (current) use of antibiotics
CPT/HCPCS: 80053; 85652; 83735; 85025; 86140

== ENCOUNTER 2024-06-16 13:04 | Outpatient (CLI) | payer MEDICAID, SELFPAY ==
--- NOTE | 2024-06-16 | DI.CT_ITS ---
Exam(s) CT LUMBAR SPINE WO EXAM: CT LUMBAR SPINE WO CLINICAL HISTORY: L02.91,M86.40,Z96.7Abcess,Osteomyelitis, spinal hardware. TECHNIQUE: Imaging Protocol: Axial computed tomography images with coronal and sagittal reformatted images were created and reviewed COMPARISON: Prior CT scans of 03/04/2024 and 05/25/2024 were reviewed FINDINGS: This study was performed without IV contrast. Apparently multiple attempts by multiple personnel wer e not able to obtain IV access. Again noted is a previously described right-sided soft tissue abscess over the lumbosacral junction w hich has component tracking to the head of the right iliac screw There is again noted a percutaneous pigtail drainage catheter which is in the upper aspect of this ab scess and appears unchanged, with the pigtail aspect of the catheter incompletely formed into a pigta il configuration. The most inferior aspect of the abscess is intimately associated with the lower mo st right side screw head which is associated with the right Mcnair meredith. The size of this abscess measures approximately 6 cm AP x 4 cm wide x 8 cm craniocaudal. It has not decreased in size. 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 There are no decubitus ulcers. There does not appear to be obvious hardware loosening nor obvious evidence of ost eomyelitis. OTHER: Visualized lung mendoza are clear with no evidence of infiltrates nor pleural effusions. There is no ascites. No obvious abnormalities evident in the liver. No gallstones nor gallbladder wall rhett a. Gallbladder is mildly distended. CBD is not dilated. No obvious pancreatic findings. Spleen size n ormal. No adrenal masses. There are nonobstructive small calculi in both kidneys. Abdominal aorta is not enlarged. There is no [id number] adenopathy. Large amount of fecal material is n oted in the colon and rectum. Diameter of the fecal filled rectum is 7 cm. Urinary bladder wall is di ffusely thickened. No obvious focal mass nor calculi seen within the nondistended urinary bladder. No evidence of appendicitis. Uterus is atrophic or surgically absent. There are no abnormal adnexal mas ses. There is no free fluid in the pelvis. IMPRESSION: There been no improvement in the size-appearance of the previously described right-sided abscess. The re is again noted a percutaneous pigtail drainage catheter. However, this drainage catheter is again noted to be in the most superior aspect of this abscess and the pigtail is again noted to be incomple tely formed. Would recommend consideration for placement of an additional pigtail drainage catheter i n the inferior-more dependent aspect of the abscess. The inferior aspect of this abscess is only 1.9 cm in from the skin surface of the upper right buttock RADIATION DOSE DELIVERED: 2,478.08mGy.cm Total DLP DATA REPOSITORY: All CT scans at this facility are submitted to the National Radiology Data Registry (NRDR) Dose Index Registry (DIR) with the [employer] ([employer]). RADIATION OPTIMIZATION: All CT scans at this facility use at least one of these dose optimization te chniques: automated exposure control; mA and/or kV adjustment per patient size (includes targeted exa ms where dose is matched to clinical indication); or iterative reconstruction.
== END 2024-06-16 13:24 ==
PROVIDERS: PCP Nurse Practitioner Family; Visit Provider Internal Medicine Infectious Disease
DX: L02.91 Cutaneous abscess, unspecified (principal); Z96.7 Presence of other bone and tendon implants; M86.48 Chronic osteomyelitis with draining sinus, other site
CPT/HCPCS: 72131

== ENCOUNTER 2024-06-16 15:02 | Outpatient (REF) | payer MEDICAID, SELFPAY ==
[2024-06-16 11:13] LABS: Abs Immature Grans 0.01 10^3/uL (0.0-0.06); Absolute Basophil Count 0.01 10^3/uL (0.0-0.2); Absolute Lymphocyte Count 1.42 10^3/uL (1.2-3.4); Absolute Monocyte Count 0.38 10^3/uL (0.1-0.8); Absolute Neutrophil Count 3.19 10^3/uL (1.2-6.7); Basophils % 0.2 %; HCT 39.5 % (36.0-46.0); HGB 12.8 g/dL (11.2-15.7); Immature Grans % 0.2 %; Lymphocytes % 28.3 %; MCH 28.2 pg (27.0-33.0); MCHC 32.4 % (32.0-36.0); MCV 87 fL (80-95); MPV 9.5 fL (8.0-11.0); Monocytes % 7.6 %; Neutrophils % 63.7 %; Platelet Count 299 10^3/uL (130-400); RBC 4.54 10^6/uL (3.93-5.22); RDW 16.5 % (11.7-14.6); RDW-SD 53.2 fL; WBC 5.01 10^3/uL (4.4-10.8)
[2024-06-16 11:17] LABS: ESR 44 mm/hr (0-20)
[2024-06-16 15:01] LABS: ALT 104 U/L (14-59); AST 39 U/L (15-37); Albumin 3.5 g/dL (3.4-5.0); Alkaline Phosphatase 312 U/L (46-116); Anion Gap 11.4 mmol/L (3-11); BUN 10 mg/dL (7-18); Bilirubin, Total 0.24 mg/dL (0.2-1.0); C-Reactive Protein 6.01 mg/dL (<or=0.5); CO2 22.6 mmol/L (21.0-32.0); CREATININE 0.4 mg/dL (0.55-1.02); Calcium 9.5 mg/dL (8.5-10.1); Chloride 105 mmol/L (98-107); Estimated GFR 136.46 (mL/min/1.73m2); Glucose 79 mg/dL (74-106); Potassium 4.3 mmol/L (3.5-5.1); Sodium 139 mmol/L (136-145); Total Protein 7.5 g/dL (6.4-8.2)
== END 2024-06-16 15:03 | disposition home or self-care (01) ==
LOC: NCHCN 15:02
PROVIDERS: PCP Nurse Practitioner Family; Visit Provider Nurse Practitioner Family
DX: L02.91 Cutaneous abscess, unspecified (principal); Z79.2 Long term (current) use of antibiotics
CPT/HCPCS: 80053; 85652; 85025; 86140

== ENCOUNTER 2024-06-30 11:32 | Outpatient (REF) | payer MEDICAID, SELFPAY ==
[2024-06-30 11:52] LABS: Abs Immature Grans 0.02 10^3/uL (0.0-0.06); Absolute Basophil Count 0.01 10^3/uL (0.0-0.2); Absolute Lymphocyte Count 1.12 10^3/uL (1.2-3.4); Absolute Monocyte Count 0.23 10^3/uL (0.1-0.8); Basophils % 0.3 %; HCT 36.7 % (36.0-46.0); Immature Grans % 0.6 %; Lymphocytes % 32.2 %; MCH 28.2 pg (27.0-33.0); MCHC 32.7 % (32.0-36.0); MCV 86 fL (80-95); MPV 10.1 fL (8.0-11.0); Monocytes % 6.6 %; Neutrophils % 60.3 %; Platelet Count 255 10^3/uL (130-400); RBC 4.25 10^6/uL (3.93-5.22); RDW 16.9 % (11.7-14.6); RDW-SD 51.9 fL; WBC 3.48 10^3/uL (4.4-10.8)
[2024-06-30 11:58] LABS: ESR 41 mm/hr (0-20)
[2024-06-30 12:01] LABS: ALT 63 U/L (14-59); AST 29 U/L (15-37); Albumin 3.5 g/dL (3.4-5.0); Alkaline Phosphatase 236 U/L (46-116); Anion Gap 10.1 mmol/L (3-11); BUN 12 mg/dL (7-18); CO2 27.9 mmol/L (21.0-32.0); CREATININE 0.4 mg/dL (0.55-1.02); Calcium 9.3 mg/dL (8.5-10.1); Chloride 105 mmol/L (98-107); Estimated GFR 135.62 (mL/min/1.73m2); Glucose 113 mg/dL (74-106); Potassium 3.8 mmol/L (3.5-5.1); Sodium 143 mmol/L (136-145); Total Protein 7.5 g/dL (6.4-8.2)
== END 2024-06-30 11:33 | disposition home or self-care (01) ==
LOC: NCHCN 11:32
PROVIDERS: PCP Nurse Practitioner Family; Visit Provider Nurse Practitioner Family
DX: L02.91 Cutaneous abscess, unspecified (principal); Z79.2 Long term (current) use of antibiotics
CPT/HCPCS: 80053; 85652; 85025; 86140

== ENCOUNTER 2024-07-14 13:19 | Outpatient (REF) | payer MEDICAID, SELFPAY ==
[2024-07-14 13:18] LABS: Abs Immature Grans 0.02 10^3/uL (0.0-0.06); Absolute Basophil Count 0.02 10^3/uL (0.0-0.2); Absolute Lymphocyte Count 1.57 10^3/uL (1.2-3.4); Absolute Monocyte Count 0.43 10^3/uL (0.1-0.8); Absolute Neutrophil Count 2.25 10^3/uL (1.2-6.7); Basophils % 0.5 %; HGB 11.9 g/dL (11.2-15.7); Immature Grans % 0.5 %; Lymphocytes % 36.6 %; MCH 28.3 pg (27.0-33.0); MCHC 33.1 % (32.0-36.0); MCV 86 fL (80-95); Neutrophils % 52.4 %; RBC 4.21 10^6/uL (3.93-5.22); RDW 17.5 % (11.7-14.6); RDW-SD 54.2 fL; WBC 4.29 10^3/uL (4.4-10.8)
[2024-07-14 13:21] LABS: ALT 48 U/L (14-59); AST 26 U/L (15-37); Albumin 3.3 g/dL (3.4-5.0); Alkaline Phosphatase 195 U/L (46-116); Anion Gap 8.7 mmol/L (3-11); BUN 14 mg/dL (7-18); Bilirubin, Total 0.2 mg/dL (0.2-1.0); CO2 28.3 mmol/L (21.0-32.0); CREATININE 0.4 mg/dL (0.55-1.02); Calcium 9.4 mg/dL (8.5-10.1); Chloride 105 mmol/L (98-107); Estimated GFR 135.62 (mL/min/1.73m2); Glucose 86 mg/dL (74-106); Potassium 4.1 mmol/L (3.5-5.1); Sodium 142 mmol/L (136-145); Total Protein 7.4 g/dL (6.4-8.2)
[2024-07-14 13:28] LABS: Diff Comment Diff Reviewed; RBC Morphology Normal
[2024-07-14 17:39] LABS: C-Reactive Protein 6.17 mg/dL (<or=0.5)
== END 2024-07-14 13:20 | disposition home or self-care (01) ==
LOC: NCHCN 13:19
PROVIDERS: PCP Nurse Practitioner Family; Visit Provider Nurse Practitioner Family
DX: Q67.5 Congenital deformity of spine (principal); M86.40 Chronic osteomyelitis with draining sinus, unspecified site
CPT/HCPCS: 80053; 86141; 85025; 86140

== ENCOUNTER 2024-07-28 11:41 | Outpatient (REF) | payer MEDICAID, SELFPAY ==
[2024-07-28 13:26] LABS: Abs Immature Grans 0.01 10^3/uL (0.0-0.06); Absolute Basophil Count 0.01 10^3/uL (0.0-0.2); Absolute Eosinophil Count 0.01 10^3/uL (0.0-0.7); Absolute Lymphocyte Count 1.48 10^3/uL (1.2-3.4); Absolute Monocyte Count 0.27 10^3/uL (0.1-0.8); Absolute Neutrophil Count 2.39 10^3/uL (1.2-6.7); Basophils % 0.2 %; Eosinophils % 0.2 %; HCT 35.6 % (36.0-46.0); HGB 11.3 g/dL (11.2-15.7); Immature Grans % 0.2 %; Lymphocytes % 35.5 %; MCH 27.9 pg (27.0-33.0); MCHC 31.7 % (32.0-36.0); MCV 88 fL (80-95); MPV 9.9 fL (8.0-11.0); Monocytes % 6.5 %; Neutrophils % 57.4 %; Platelet Count 304 10^3/uL (130-400); RBC 4.05 10^6/uL (3.93-5.22); RDW 16.8 % (11.7-14.6); RDW-SD 53.8 fL; WBC 4.17 10^3/uL (4.4-10.8)
[2024-07-28 13:28] LABS: ESR 52 mm/hr (0-20)
[2024-07-28 13:34] LABS: ALT 41 U/L (14-59); AST 21 U/L (15-37); Albumin 3.3 g/dL (3.4-5.0); Alkaline Phosphatase 234 U/L (46-116); Anion Gap 8.7 mmol/L (3-11); BUN 10 mg/dL (7-18); Bilirubin, Total 0.2 mg/dL (0.2-1.0); C-Reactive Protein 7.24 mg/dL (<or=0.5); CO2 25.3 mmol/L (21.0-32.0); CREATININE 0.5 mg/dL (0.55-1.02); Calcium 9.2 mg/dL (8.5-10.1); Chloride 107 mmol/L (98-107); Estimated GFR 128.52 (mL/min/1.73m2); Glucose 92 mg/dL (74-106); Potassium 4.2 mmol/L (3.5-5.1); Sodium 141 mmol/L (136-145)
== END 2024-07-28 11:42 | disposition home or self-care (01) ==
LOC: NCHCN 11:41
PROVIDERS: PCP Nurse Practitioner Family; Visit Provider Nurse Practitioner Family
DX: L03.312 Cellulitis of back [any part except buttock and flank]
CPT/HCPCS: 80053; 85652; 85025; 86140

== ENCOUNTER 2024-08-11 09:25 | Outpatient (REF) | payer MEDICAID, SELFPAY ==
[2024-08-11 10:31] LABS: Abs Immature Grans 0.01 10^3/uL (0.0-0.06); Absolute Basophil Count 0.02 10^3/uL (0.0-0.2); Absolute Eosinophil Count 0.01 10^3/uL (0.0-0.7); Absolute Lymphocyte Count 1.35 10^3/uL (1.2-3.4); Absolute Monocyte Count 0.19 10^3/uL (0.1-0.8); Absolute Neutrophil Count 1.81 10^3/uL (1.2-6.7); Basophils % 0.6 %; Eosinophils % 0.3 %; HCT 38.3 % (36.0-46.0); HGB 12.2 g/dL (11.2-15.7); Immature Grans % 0.3 %; Lymphocytes % 39.8 %; MCH 27.9 pg (27.0-33.0); MCHC 31.9 % (32.0-36.0); MCV 87 fL (80-95); MPV 9.6 fL (8.0-11.0); Monocytes % 5.6 %; Neutrophils % 53.4 %; Platelet Count 288 10^3/uL (130-400); RBC 4.38 10^6/uL (3.93-5.22); RDW 16.5 % (11.7-14.6); RDW-SD 52.6 fL; WBC 3.39 10^3/uL (4.4-10.8)
[2024-08-11 10:50] LABS: ALT 40 U/L (14-59); AST 21 U/L (15-37); Albumin 3.4 g/dL (3.4-5.0); Alkaline Phosphatase 214 U/L (46-116); Anion Gap 11.2 mmol/L (3-11); BUN 8 mg/dL (7-18); Bilirubin, Total 0.2 mg/dL (0.2-1.0); C-Reactive Protein 2.19 mg/dL (<or=0.5); CO2 24.8 mmol/L (21.0-32.0); CREATININE 0.6 mg/dL (0.55-1.02); Calcium 9.1 mg/dL (8.5-10.1); Chloride 104 mmol/L (98-107); Estimated GFR 122.99 (mL/min/1.73m2); Glucose 128 mg/dL (74-106); Potassium 3.9 mmol/L (3.5-5.1); Sodium 140 mmol/L (136-145); Total Protein 7.4 g/dL (6.4-8.2)
== END 2024-08-11 09:26 | disposition home or self-care (01) ==
LOC: NCHCN 09:25
PROVIDERS: PCP Nurse Practitioner Family; Visit Provider Nurse Practitioner Family
DX: Q67.5 Congenital deformity of spine
CPT/HCPCS: 80053; 85025; 86140

== ENCOUNTER 2024-08-25 15:46 | Outpatient (REF) | payer MEDICAID, SELFPAY ==
[2024-08-25 17:30] LABS: Absolute Basophil Count 0.01 10^3/uL (0.0-0.2); Absolute Lymphocyte Count 1.45 10^3/uL (1.2-3.4); Absolute Monocyte Count 0.21 10^3/uL (0.1-0.8); Absolute Neutrophil Count 1.46 10^3/uL (1.2-6.7); Basophils % 0.3 %; HCT 37.7 % (36.0-46.0); Lymphocytes % 46.3 %; MCH 27.6 pg (27.0-33.0); MCHC 31.8 % (32.0-36.0); MCV 87 fL (80-95); MPV 9.8 fL (8.0-11.0); Monocytes % 6.7 %; Neutrophils % 46.7 %; Platelet Count 299 10^3/uL (130-400); RBC 4.35 10^6/uL (3.93-5.22); RDW 16.4 % (11.7-14.6); RDW-SD 52.3 fL; WBC 3.13 10^3/uL (4.4-10.8)
[2024-08-25 17:47] LABS: ALT 76 U/L (14-59); AST 33 U/L (15-37); Albumin 3.6 g/dL (3.4-5.0); Alkaline Phosphatase 255 U/L (46-116); Anion Gap 12.2 mmol/L (3-11); BUN 12 mg/dL (7-18); Bilirubin, Total 0.2 mg/dL (0.2-1.0); C-Reactive Protein 1.98 mg/dL (<or=0.5); CO2 25.8 mmol/L (21.0-32.0); CREATININE 0.5 mg/dL (0.55-1.02); Calcium 9.6 mg/dL (8.5-10.1); Chloride 106 mmol/L (98-107); Estimated GFR 128.52 (mL/min/1.73m2); Glucose 108 mg/dL (74-106); Potassium 4.2 mmol/L (3.5-5.1); Sodium 144 mmol/L (136-145); Total Protein 7.4 g/dL (6.4-8.2)
== END 2024-08-25 15:47 | disposition home or self-care (01) ==
LOC: NCHCN 15:46
PROVIDERS: PCP Nurse Practitioner Family; Visit Provider Nurse Practitioner Family
DX: Q67.5 Congenital deformity of spine
CPT/HCPCS: 80053; 85025; 86140

== ENCOUNTER 2024-09-05 11:01 | Outpatient (REF) | payer MEDICAID, SELFPAY ==
[2024-09-05 13:12] LABS: Abs Immature Grans 0.01 10^3/uL (0.0-0.06); Absolute Basophil Count 0.01 10^3/uL (0.0-0.2); Absolute Lymphocyte Count 1.18 10^3/uL (1.2-3.4); Absolute Monocyte Count 0.26 10^3/uL (0.1-0.8); Basophils % 0.3 %; HCT 38.1 % (36.0-46.0); HGB 12.4 g/dL (11.2-15.7); Immature Grans % 0.3 %; Lymphocytes % 32.2 %; MCH 27.9 pg (27.0-33.0); MCHC 32.5 % (32.0-36.0); MCV 86 fL (80-95); MPV 10.2 fL (8.0-11.0); Monocytes % 7.1 %; Neutrophils % 60.1 %; Platelet Count 261 10^3/uL (130-400); RBC 4.45 10^6/uL (3.93-5.22); RDW 17.3 % (11.7-14.6); RDW-SD 53.9 fL; WBC 3.66 10^3/uL (4.4-10.8)
[2024-09-05 13:32] LABS: ALT 47 U/L (14-59); AST 25 U/L (15-37); Albumin 3.5 g/dL (3.4-5.0); Alkaline Phosphatase 259 U/L (46-116); Anion Gap 12.1 mmol/L (3-11); BUN 11 mg/dL (7-18); Bilirubin, Total 0.2 mg/dL (0.2-1.0); C-Reactive Protein 6.06 mg/dL (<or=0.5); CO2 23.9 mmol/L (21.0-32.0); CREATININE 0.5 mg/dL (0.55-1.02); Calcium 9.3 mg/dL (8.5-10.1); Chloride 105 mmol/L (98-107); Estimated GFR 128.52 (mL/min/1.73m2); Glucose 135 mg/dL (74-106); Potassium 3.6 mmol/L (3.5-5.1); Sodium 141 mmol/L (136-145); Total Protein 7.7 g/dL (6.4-8.2)
== END 2024-09-05 11:02 | disposition home or self-care (01) ==
LOC: NCHCN 11:01
PROVIDERS: PCP Nurse Practitioner Family; Visit Provider Nurse Practitioner Family
DX: M86.48 Chronic osteomyelitis with draining sinus, other site (principal); Q67.5 Congenital deformity of spine
CPT/HCPCS: 80053; 85025; 86140

== ENCOUNTER 2024-09-22 10:49 | Outpatient (REF) | payer MEDICAID, SELFPAY ==
[2024-09-22 13:28] LABS: Abs Immature Grans 0.01 10^3/uL (0.0-0.06); Absolute Basophil Count 0.01 10^3/uL (0.0-0.2); Absolute Lymphocyte Count 1.27 10^3/uL (1.2-3.4); Absolute Monocyte Count 0.17 10^3/uL (0.1-0.8); Absolute Neutrophil Count 1.58 10^3/uL (1.2-6.7); Basophils % 0.3 %; HCT 38.3 % (36.0-46.0); HGB 12.3 g/dL (11.2-15.7); Immature Grans % 0.3 %; Lymphocytes % 41.8 %; MCH 27.6 pg (27.0-33.0); MCHC 32.1 % (32.0-36.0); MCV 86 fL (80-95); MPV 10.3 fL (8.0-11.0); Monocytes % 5.6 %; Platelet Count 249 10^3/uL (130-400); RBC 4.45 10^6/uL (3.93-5.22); RDW 16.4 % (11.7-14.6); RDW-SD 50.9 fL; WBC 3.04 10^3/uL (4.4-10.8)
[2024-09-22 13:30] LABS: C-Reactive Protein 2.01 mg/dL (<or=0.5)
== END 2024-09-22 10:50 | disposition home or self-care (01) ==
LOC: LBN 10:49
PROVIDERS: PCP Nurse Practitioner Family; Visit Provider Internal Medicine Infectious Disease
DX: L03.91 Acute lymphangitis, unspecified (principal); Z79.2 Long term (current) use of antibiotics
CPT/HCPCS: 85025; 86140

== ENCOUNTER 2024-10-06 12:06 | Outpatient (REF) | payer MEDICAID, SELFPAY ==
[2024-10-06 13:08] LABS: Abs Immature Grans 0.01 10^3/uL (0.0-0.06); Absolute Lymphocyte Count 1.13 10^3/uL (1.2-3.4); Absolute Monocyte Count 0.18 10^3/uL (0.1-0.8); Absolute Neutrophil Count 1.98 10^3/uL (1.2-6.7); HCT 36.9 % (36.0-46.0); HGB 11.9 g/dL (11.2-15.7); Immature Grans % 0.3 %; Lymphocytes % 34.2 %; MCH 27.9 pg (27.0-33.0); MCHC 32.2 % (32.0-36.0); MCV 87 fL (80-95); MPV 10.5 fL (8.0-11.0); Monocytes % 5.5 %; Platelet Count 204 10^3/uL (130-400); RBC 4.26 10^6/uL (3.93-5.22); RDW 17.4 % (11.7-14.6); RDW-SD 54.7 fL
[2024-10-06 13:44] LABS: ALT 75 U/L (14-59); AST 34 U/L (15-37); Albumin 3.4 g/dL (3.4-5.0); Alkaline Phosphatase 244 U/L (46-116); Anion Gap 11.8 mmol/L (3-11); BUN 11 mg/dL (7-18); Bilirubin, Total 0.2 mg/dL (0.2-1.0); C-Reactive Protein 3.66 mg/dL (<or=0.5); CO2 24.2 mmol/L (21.0-32.0); CREATININE 0.4 mg/dL (0.55-1.02); Calcium 8.9 mg/dL (8.5-10.1); Chloride 105 mmol/L (98-107); Estimated GFR 135.62 (mL/min/1.73m2); Glucose 128 mg/dL (74-106); Potassium 3.8 mmol/L (3.5-5.1); Sodium 141 mmol/L (136-145); Total Protein 7.1 g/dL (6.4-8.2)
== END 2024-10-06 12:07 | disposition home or self-care (01) ==
LOC: NCHCN 12:06
PROVIDERS: PCP Nurse Practitioner Family; Visit Provider Nurse Practitioner Family
DX: M86.48 Chronic osteomyelitis with draining sinus, other site (principal); Q67.5 Congenital deformity of spine
CPT/HCPCS: 80053; 85025; 86140

== ENCOUNTER 2024-10-20 11:12 | Outpatient (REF) | payer MEDICAID, SELFPAY ==
[2024-10-20 12:36] LABS: Abs Immature Grans 0.01 10^3/uL (0.0-0.06); Absolute Basophil Count 0.02 10^3/uL (0.0-0.2); Absolute Lymphocyte Count 1.41 10^3/uL (1.2-3.4); Absolute Monocyte Count 0.28 10^3/uL (0.1-0.8); Absolute Neutrophil Count 2.37 10^3/uL (1.2-6.7); Basophils % 0.5 %; HGB 12.2 g/dL (11.2-15.7); Immature Grans % 0.2 %; Lymphocytes % 34.5 %; MCH 28.6 pg (27.0-33.0); MCV 87 fL (80-95); MPV 9.9 fL (8.0-11.0); Monocytes % 6.8 %; Platelet Count 247 10^3/uL (130-400); RBC 4.27 10^6/uL (3.93-5.22); RDW-SD 54.2 fL; WBC 4.09 10^3/uL (4.4-10.8)
[2024-10-20 12:59] LABS: ALT 112 U/L (14-59); AST 53 U/L (15-37); Albumin 3.5 g/dL (3.4-5.0); Alkaline Phosphatase 282 U/L (46-116); Anion Gap 10.9 mmol/L (3-11); BUN 9 mg/dL (7-18); Bilirubin, Total 0.2 mg/dL (0.2-1.0); C-Reactive Protein 2.97 mg/dL (<or=0.5); CO2 26.1 mmol/L (21.0-32.0); CREATININE 0.4 mg/dL (0.55-1.02); Chloride 102 mmol/L (98-107); Estimated GFR 135.62 (mL/min/1.73m2); Glucose 89 mg/dL (74-106); Potassium 3.7 mmol/L (3.5-5.1); Sodium 139 mmol/L (136-145); Total Protein 7.3 g/dL (6.4-8.2)
== END 2024-10-20 11:13 | disposition home or self-care (01) ==
LOC: NCHCN 11:12
PROVIDERS: PCP Nurse Practitioner Family; Visit Provider Nurse Practitioner Family
DX: Q67.5 Congenital deformity of spine (principal); M86.48 Chronic osteomyelitis with draining sinus, other site
CPT/HCPCS: 80053; 85025; 86140

== ENCOUNTER 2024-11-03 13:05 | Outpatient (REF) | payer MEDICAID, SELFPAY ==
[2024-11-03 13:40] LABS: Abs Immature Grans 0.00 10^3/uL (0.0-0.06); HCT 37.9 % (36.0-46.0); HGB 12.3 g/dL (11.2-15.7); Immature Grans % 0.0 %; MCH 28.7 pg (27.0-33.0); MCHC 32.5 % (32.0-36.0); MCV 89 fL (80-95); MPV 10.5 fL (8.0-11.0); Platelet Count 212 10^3/uL (130-400); RBC 4.28 10^6/uL (3.93-5.22); RDW 17.1 % (11.7-14.6); RDW-SD 55.0 fL; WBC 3.21 10^3/uL (4.4-10.8)
[2024-11-03 14:00] LABS: ALT 85 U/L (14-59); AST 32 U/L (15-37); Albumin 3.6 g/dL (3.4-5.0); Alkaline Phosphatase 256 U/L (46-116); Anion Gap 13.2 mmol/L (3-11); BUN 9 mg/dL (7-18); Bilirubin, Total 0.1 mg/dL (0.2-1.0); C-Reactive Protein 2.06 mg/dL (<or=0.5); CO2 23.8 mmol/L (21.0-32.0); Calcium 8.9 mg/dL (8.5-10.1); Chloride 104 mmol/L (98-107); Estimated GFR 135.62 (mL/min/1.73m2); Glucose 100 mg/dL (74-106); Potassium 3.7 mmol/L (3.5-5.1); Sodium 141 mmol/L (136-145); Total Protein 7.2 g/dL (6.4-8.2)
== END 2024-11-03 13:06 | disposition home or self-care (01) ==
LOC: NCHCN 13:05
PROVIDERS: PCP Nurse Practitioner Family; Visit Provider Nurse Practitioner Family
DX: Q67.5 Congenital deformity of spine
CPT/HCPCS: 80053; 85025; 86140

== ENCOUNTER 2024-11-17 14:48 | Outpatient (REF) | payer MEDICAID, SELFPAY ==
[2024-11-17 11:28] LABS: Magnesium 1.7 mg/dL (1.8-2.4)
[2024-11-17 11:34] LABS: ALT 61 U/L (14-59); AST 25 U/L (15-37); Albumin 3.5 g/dL (3.4-5.0); Alkaline Phosphatase 231 U/L (46-116); Anion Gap 11.8 mmol/L (3-11); BUN 5 mg/dL (7-18); Bilirubin, Total 0.2 mg/dL (0.2-1.0); C-Reactive Protein 1.88 mg/dL (<or=0.5); CO2 25.2 mmol/L (21.0-32.0); Calcium 9.1 mg/dL (8.5-10.1); Chloride 105 mmol/L (98-107); Estimated GFR 128.52 (mL/min/1.73m2); Glucose 144 mg/dL (74-106); Potassium 3.6 mmol/L (3.5-5.1); Sodium 142 mmol/L (136-145); Total Protein 7.2 g/dL (6.4-8.2)
== END 2024-11-17 14:49 | disposition home or self-care (01) ==
LOC: NCHCN 14:48
PROVIDERS: Family Medicine; PCP Nurse Practitioner Family; Visit Provider Nurse Practitioner Family
DX: R11.10 Vomiting, unspecified (principal); M86.48 Chronic osteomyelitis with draining sinus, other site; Q67.5 Congenital deformity of spine
CPT/HCPCS: 80053; 83735; 86140

== ENCOUNTER 2024-12-01 14:04 | Outpatient (REF) | payer MEDICAID, SELFPAY ==
[2024-12-01 11:48] LABS: ALT 97 U/L (14-59); AST 39 U/L (15-37); Albumin 3.4 g/dL (3.4-5.0); Alkaline Phosphatase 282 U/L (46-116); Anion Gap 10.1 mmol/L (3-11); BUN 8 mg/dL (7-18); Bilirubin, Total 0.2 mg/dL (0.2-1.0); C-Reactive Protein 6.06 mg/dL (<or=0.5); CO2 27.9 mmol/L (21.0-32.0); Calcium 8.5 mg/dL (8.5-10.1); Chloride 104 mmol/L (98-107); Estimated GFR 135.62 (mL/min/1.73m2); Glucose 95 mg/dL (74-106); Potassium 3.9 mmol/L (3.5-5.1); Sodium 142 mmol/L (136-145); Total Protein 7.3 g/dL (6.4-8.2)
[2024-12-01 11:53] LABS: Abs Immature Grans 0.02 10^3/uL (0.0-0.06); HCT 36.8 % (36.0-46.0); HGB 12.0 g/dL (11.2-15.7); Immature Grans % 0.4 %; MCH 29.3 pg (27.0-33.0); MCHC 32.6 % (32.0-36.0); MCV 90 fL (80-95); MPV 9.6 fL (8.0-11.0); Platelet Count 302 10^3/uL (130-400); RBC 4.10 10^6/uL (3.93-5.22); RDW 16.2 % (11.7-14.6); RDW-SD 53.4 fL; WBC 4.47 10^3/uL (4.4-10.8)
== END 2024-12-01 14:05 | disposition home or self-care (01) ==
LOC: NCHCN 14:04
PROVIDERS: PCP Nurse Practitioner Family; Visit Provider Nurse Practitioner Family
DX: Q67.5 Congenital deformity of spine
CPT/HCPCS: 80053; 85025; 86140

== ENCOUNTER 2024-12-15 11:53 | Outpatient (REF) | payer MEDICAID, SELFPAY ==
[2024-12-15 13:21] LABS: Abs Immature Grans 0.01 10^3/uL (0.0-0.06); HCT 36.9 % (36.0-46.0); HGB 12.0 g/dL (11.2-15.7); Immature Grans % 0.3 %; MCH 29.3 pg (27.0-33.0); MCHC 32.5 % (32.0-36.0); MCV 90 fL (80-95); MPV 10.2 fL (8.0-11.0); Platelet Count 257 10^3/uL (130-400); RBC 4.10 10^6/uL (3.93-5.22); RDW 16.2 % (11.7-14.6); RDW-SD 53.5 fL; WBC 3.73 10^3/uL (4.4-10.8)
[2024-12-15 13:45] LABS: ALT 54 U/L (14-59); AST 25 U/L (15-37); Albumin 3.4 g/dL (3.4-5.0); Alkaline Phosphatase 210 U/L (46-116); Anion Gap 9.7 mmol/L (3-11); BUN 11 mg/dL (7-18); Bilirubin, Total 0.1 mg/dL (0.2-1.0); C-Reactive Protein 2.94 mg/dL (<or=0.5); CO2 25.3 mmol/L (21.0-32.0); Calcium 8.9 mg/dL (8.5-10.1); Chloride 108 mmol/L (98-107); Estimated GFR 145.35 (mL/min/1.73m2); Glucose 107 mg/dL (74-106); Potassium 4.3 mmol/L (3.5-5.1); Sodium 143 mmol/L (136-145); Total Protein 7.1 g/dL (6.4-8.2)
== END 2024-12-15 11:54 | disposition home or self-care (01) ==
LOC: NCHCN 11:53
PROVIDERS: PCP Nurse Practitioner Family; Visit Provider Nurse Practitioner Family
DX: Q67.5 Congenital deformity of spine
CPT/HCPCS: 80053; 85025; 86140

== ENCOUNTER 2024-12-27 15:44 | Outpatient (REF) | payer MEDICAID, SELFPAY ==
[2024-12-27 16:41] LABS: Abs Immature Grans 0.00 10^3/uL (0.0-0.06); HCT 39.7 % (36.0-46.0); HGB 12.7 g/dL (11.2-15.7); Immature Grans % 0.0 %; MCH 28.6 pg (27.0-33.0); MCHC 32.0 % (32.0-36.0); MCV 89 fL (80-95); MPV 10.1 fL (8.0-11.0); Platelet Count 217 10^3/uL (130-400); RBC 4.44 10^6/uL (3.93-5.22); RDW 15.3 % (11.7-14.6); RDW-SD 49.9 fL; WBC 2.96 10^3/uL (4.4-10.8)
== END 2024-12-27 15:45 | disposition home or self-care (01) ==
LOC: NCHCN 15:44
PROVIDERS: PCP Nurse Practitioner Family; Visit Provider Nurse Practitioner Family
DX: Q67.5 Congenital deformity of spine
CPT/HCPCS: 80053; 85025; 86140

== ENCOUNTER 2025-01-12 15:06 | Outpatient (REF) | payer MEDICAID, SELFPAY ==
[2025-01-12 11:32] LABS: Abs Immature Grans 0.01 10^3/uL (0.0-0.06); HCT 35.3 % (36.0-46.0); HGB 11.6 g/dL (11.2-15.7); Immature Grans % 0.3 %; MCH 29.2 pg (27.0-33.0); MCHC 32.9 % (32.0-36.0); MCV 89 fL (80-95); MPV 9.9 fL (8.0-11.0); Platelet Count 233 10^3/uL (130-400); RBC 3.97 10^6/uL (3.93-5.22); RDW 15.9 % (11.7-14.6); RDW-SD 51.2 fL; WBC 3.00 10^3/uL (4.4-10.8)
[2025-01-12 11:43] LABS: ALT 52 U/L (14-59); AST 20 U/L (15-37); Albumin 3.2 g/dL (3.4-5.0); Alkaline Phosphatase 253 U/L (46-116); Anion Gap 9.7 mmol/L (3-11); BUN 11 mg/dL (7-18); Bilirubin, Total 0.2 mg/dL (0.2-1.0); CO2 26.3 mmol/L (21.0-32.0); Calcium 9.3 mg/dL (8.5-10.1); Chloride 103 mmol/L (98-107); Estimated GFR 135.62 (mL/min/1.73m2); Glucose 89 mg/dL (74-106); Potassium 4.2 mmol/L (3.5-5.1); Sodium 139 mmol/L (136-145); Total Protein 6.9 g/dL (6.4-8.2)
[2025-01-12 11:51] LABS: C-Reactive Protein 5.27 mg/dL (<or=0.5)
== END 2025-01-12 15:07 | disposition home or self-care (01) ==
LOC: LBN 15:06
PROVIDERS: PCP Nurse Practitioner Family; Visit Provider Internal Medicine Infectious Disease
DX: M46.20 Osteomyelitis of vertebra, site unspecified (principal)
CPT/HCPCS: 80053; 85025; 86140

== ENCOUNTER 2025-01-26 11:05 | Outpatient (REF) | payer MEDICAID, SELFPAY ==
[2025-01-26 11:31] LABS: Abs Immature Grans 0.02 10^3/uL (0.0-0.06); HCT 38.0 % (36.0-46.0); HGB 12.5 g/dL (11.2-15.7); Immature Grans % 0.5 %; MCH 29.6 pg (27.0-33.0); MCHC 32.9 % (32.0-36.0); MCV 90 fL (80-95); MPV 9.6 fL (8.0-11.0); Platelet Count 278 10^3/uL (130-400); RBC 4.23 10^6/uL (3.93-5.22); RDW 15.2 % (11.7-14.6); RDW-SD 49.9 fL; WBC 4.22 10^3/uL (4.4-10.8)
[2025-01-26 11:37] LABS: ALT 101 U/L (14-59); AST 42 U/L (15-37); Albumin 3.5 g/dL (3.4-5.0); Alkaline Phosphatase 304 U/L (46-116); Anion Gap 11.6 mmol/L (3-11); BUN 11 mg/dL (7-18); Bilirubin, Total 0.2 mg/dL (0.2-1.0); CO2 26.4 mmol/L (21.0-32.0); Calcium 8.9 mg/dL (8.5-10.1); Chloride 102 mmol/L (98-107); Estimated GFR 122.99 (mL/min/1.73m2); Glucose 111 mg/dL (74-106); Potassium 4.1 mmol/L (3.5-5.1); Sodium 140 mmol/L (136-145); Total Protein 7.5 g/dL (6.4-8.2)
[2025-01-26 15:21] LABS: C-Reactive Protein 5.57 mg/dL (<or=0.5)
== END 2025-01-26 11:06 | disposition home or self-care (01) ==
LOC: LBN 11:05
PROVIDERS: PCP Nurse Practitioner Family; Visit Provider Internal Medicine Infectious Disease
DX: M46.20 Osteomyelitis of vertebra, site unspecified (principal)
CPT/HCPCS: 80053; 85025; 86140

== ENCOUNTER 2025-02-09 10:41 | Outpatient (REF) | payer MEDICAID, SELFPAY ==
[2025-02-09 11:19] LABS: Abs Immature Grans 0.00 10^3/uL (0.0-0.06); HCT 39.4 % (36.0-46.0); HGB 12.8 g/dL (11.2-15.7); Immature Grans % 0.0 %; MCH 28.6 pg (27.0-33.0); MCHC 32.5 % (32.0-36.0); MCV 88 fL (80-95); MPV 9.7 fL (8.0-11.0); Platelet Count 253 10^3/uL (130-400); RBC 4.47 10^6/uL (3.93-5.22); RDW 14.9 % (11.7-14.6); RDW-SD 48.1 fL; WBC 2.94 10^3/uL (4.4-10.8)
[2025-02-09 11:46] LABS: ALT 78 U/L (14-59); AST 47 U/L (15-37); Albumin 3.5 g/dL (3.4-5.0); Alkaline Phosphatase 257 U/L (46-116); Anion Gap 11.6 mmol/L (3-11); BUN 10 mg/dL (7-18); Bilirubin, Total 0.1 mg/dL (0.2-1.0); C-Reactive Protein 2.66 mg/dL (<or=0.5); CO2 24.4 mmol/L (21.0-32.0); Calcium 8.8 mg/dL (8.5-10.1); Chloride 103 mmol/L (98-107); Estimated GFR 128.52 (mL/min/1.73m2); Glucose 113 mg/dL (74-106); Potassium 3.9 mmol/L (3.5-5.1); Sodium 139 mmol/L (136-145); Total Protein 7.4 g/dL (6.4-8.2)
== END 2025-02-09 10:42 | disposition home or self-care (01) ==
LOC: LBN 10:41
PROVIDERS: PCP Nurse Practitioner Family; Visit Provider Internal Medicine Infectious Disease
DX: M46.20 Osteomyelitis of vertebra, site unspecified (principal)
CPT/HCPCS: 80053; 85025; 86140

== ENCOUNTER 2025-02-27 09:34 | Outpatient (REF) | payer MEDICAID, SELFPAY ==
[2025-02-27 16:11] LABS: Abs Immature Grans 0.01 10^3/uL (0.0-0.06); HCT 39.5 % (36.0-46.0); HGB 12.8 g/dL (11.2-15.7); Immature Grans % 0.3 %; MCH 29.2 pg (27.0-33.0); MCHC 32.4 % (32.0-36.0); MCV 90 fL (80-95); MPV 10.7 fL (8.0-11.0); Platelet Count 236 10^3/uL (130-400); RBC 4.38 10^6/uL (3.93-5.22); RDW 15.2 % (11.7-14.6); RDW-SD 50.6 fL; WBC 3.64 10^3/uL (4.4-10.8)
[2025-02-27 16:31] LABS: Anion Gap 13.3 mmol/L (3-11); BUN 7 mg/dL (7-18); C-Reactive Protein 1.54 mg/dL (<or=0.5); CO2 24.7 mmol/L (21.0-32.0); Calcium 9.4 mg/dL (8.5-10.1); Chloride 102 mmol/L (98-107); Glucose 123 mg/dL (74-106); Potassium 3.8 mmol/L (3.5-5.1); Sodium 140 mmol/L (136-145)
== END 2025-02-27 09:35 | disposition home or self-care (01) ==
LOC: LBN 09:34
PROVIDERS: PCP Nurse Practitioner Family; Visit Provider Internal Medicine Infectious Disease
DX: Q67.5 Congenital deformity of spine (principal); R11.10 Vomiting, unspecified
CPT/HCPCS: 80048; 85025; 86140

== ENCOUNTER 2025-03-09 09:54 | Outpatient (REF) | payer MEDICAID, SELFPAY ==
[2025-03-09 10:32] LABS: Abs Immature Grans 0.01 10^3/uL (0.0-0.06); HCT 37.0 % (36.0-46.0); HGB 12.2 g/dL (11.2-15.7); Immature Grans % 0.3 %; MCH 29.1 pg (27.0-33.0); MCHC 33.0 % (32.0-36.0); MCV 88 fL (80-95); MPV 10.0 fL (8.0-11.0); Platelet Count 230 10^3/uL (130-400); RBC 4.19 10^6/uL (3.93-5.22); RDW 16.1 % (11.7-14.6); RDW-SD 51.0 fL; WBC 3.95 10^3/uL (4.4-10.8)
[2025-03-09 10:53] LABS: C-Reactive Protein 3.58 mg/dL (<=0.50)
[2025-03-09 10:57] LABS: ALT 57 U/L (10-49); AST 30 U/L (<34); Albumin 4.2 g/dL (3.4-5.0); Alkaline Phosphatase 216 U/L (46-116); Anion Gap 12.6 mmol/L (3-11); BUN 11 mg/dL (9-23); Bilirubin, Total 0.20 mg/dL (0.2-1.2); CO2 23.4 mmol/L (20.0-31.0); Calcium 8.7 mg/dL (8.3-10.6); Chloride 105 mmol/L (98-107); Glucose 117 mg/dL (74-106); Potassium 3.6 mmol/L (3.5-5.1); Sodium 141 mmol/L (136-145); Total Protein 6.9 g/dL (5.7-8.2)
== END 2025-03-09 09:55 | disposition home or self-care (01) ==
LOC: LBN 09:54
PROVIDERS: PCP Nurse Practitioner Family; Visit Provider Internal Medicine Infectious Disease
DX: M46.20 Osteomyelitis of vertebra, site unspecified (principal)
CPT/HCPCS: 80053; 85025; 86140

== ENCOUNTER 2025-03-22 10:06 | Outpatient (REF) | payer MEDICAID, SELFPAY ==
[2025-03-22 10:46] LABS: Abs Immature Grans 0.01 10^3/uL (0.0-0.06); HCT 38.7 % (36.0-46.0); HGB 12.7 g/dL (11.2-15.7); Immature Grans % 0.3 %; MCH 29.2 pg (27.0-33.0); MCHC 32.8 % (32.0-36.0); MCV 89 fL (80-95); Platelet Count 287 10^3/uL (130-400); RBC 4.35 10^6/uL (3.93-5.22); RDW 15.6 % (11.7-14.6); RDW-SD 50.7 fL; WBC 3.48 10^3/uL (4.4-10.8)
[2025-03-22 10:54] LABS: C-Reactive Protein 2.16 mg/dL (<=0.50)
[2025-03-22 10:56] LABS: ALT 59 U/L (10-49); AST 37 U/L (<34); Albumin 4.2 g/dL (3.2-5.0); Alkaline Phosphatase 217 U/L (46-116); Anion Gap 10.8 mmol/L (3-11); BUN 11 mg/dL (9-23); Bilirubin, Total 0.20 mg/dL (0.2-1.2); CO2 24.2 mmol/L (20.0-31.0); Calcium 9.2 mg/dL (8.3-10.6); Chloride 106 mmol/L (98-107); Glucose 105 mg/dL (74-106); Potassium 4.2 mmol/L (3.5-5.1); Sodium 141 mmol/L (136-145); Total Protein 7.5 g/dL (5.7-8.2)
== END 2025-03-22 10:07 | disposition home or self-care (01) ==
LOC: LBN 10:06
PROVIDERS: PCP Nurse Practitioner Family; Visit Provider Internal Medicine Infectious Disease
DX: M46.20 Osteomyelitis of vertebra, site unspecified (principal)
CPT/HCPCS: 80053; 85025; 86140

== ENCOUNTER 2025-04-06 13:40 | Outpatient (REF) | payer MEDICAID, SELFPAY ==
[2025-04-06 15:26] LABS: Abs Immature Grans 0.01 10^3/uL (0.0-0.06); HCT 37.8 % (36.0-46.0); HGB 12.0 g/dL (11.2-15.7); Immature Grans % 0.2 %; MCH 28.4 pg (27.0-33.0); MCHC 31.7 % (32.0-36.0); MCV 90 fL (80-95); MPV 9.8 fL (8.0-11.0); Platelet Count 294 10^3/uL (130-400); RBC 4.22 10^6/uL (3.93-5.22); RDW 15.1 % (11.7-14.6); RDW-SD 49.4 fL; WBC 4.35 10^3/uL (4.4-10.8)
[2025-04-06 15:37] LABS: C-Reactive Protein 5.14 mg/dL (<=0.50)
[2025-04-06 15:39] LABS: ALT 46 U/L (10-49); AST 25 U/L (<34); Albumin 4.2 g/dL (3.2-5.0); Alkaline Phosphatase 222 U/L (46-116); Anion Gap 9.6 mmol/L (3-11); BUN 10 mg/dL (9-23); Bilirubin, Total 0.2 mg/dL (0.2-1.2); CO2 25.4 mmol/L (20.0-31.0); Calcium 9.1 mg/dL (8.3-10.6); Chloride 106 mmol/L (98-107); Glucose 90 mg/dL (74-106); Potassium 4.0 mmol/L (3.5-5.1); Sodium 141 mmol/L (136-145); Total Protein 7.3 g/dL (5.7-8.2)
== END 2025-04-06 13:41 | disposition home or self-care (01) ==
LOC: LBN 13:40
PROVIDERS: PCP Nurse Practitioner Family; Visit Provider Internal Medicine Infectious Disease
DX: M46.26 Osteomyelitis of vertebra, lumbar region (principal)
CPT/HCPCS: 80053; 85025; 86140

== ENCOUNTER 2025-04-19 11:30 | Outpatient (REF) | payer MEDICAID, SELFPAY ==
[2025-04-19 16:04] LABS: Abs Immature Grans 0.01 10^3/uL (0.0-0.06); HCT 38.0 % (36.0-46.0); HGB 12.2 g/dL (11.2-15.7); Immature Grans % 0.3 %; MCH 29.0 pg (27.0-33.0); MCHC 32.1 % (32.0-36.0); MCV 90 fL (80-95); MPV 10.2 fL (8.0-11.0); Platelet Count 258 10^3/uL (130-400); RBC 4.21 10^6/uL (3.93-5.22); RDW 15.9 % (11.7-14.6); RDW-SD 51.4 fL; WBC 3.69 10^3/uL (4.4-10.8)
[2025-04-19 16:15] LABS: C-Reactive Protein 2.86 mg/dL (<=0.50)
[2025-04-19 16:26] LABS: ALT 50 U/L (10-49); AST 31 U/L (<34); Albumin 4.1 g/dL (3.2-5.0); Alkaline Phosphatase 220 U/L (46-116); Anion Gap 12.3 mmol/L (3-11); BUN 11 mg/dL (9-23); Bilirubin, Total < 0.2 mg/dL (0.2-1.2); CO2 23.7 mmol/L (20.0-31.0); Calcium 9.4 mg/dL (8.3-10.6); Chloride 106 mmol/L (98-107); Glucose 80 mg/dL (74-106); Potassium 4.2 mmol/L (3.5-5.1); Sodium 142 mmol/L (136-145); Total Protein 7.1 g/dL (5.7-8.2)
== END 2025-04-19 11:31 | disposition home or self-care (01) ==
LOC: LBN 11:30
PROVIDERS: PCP Nurse Practitioner Family; Visit Provider Internal Medicine Infectious Disease
DX: M46.20 Osteomyelitis of vertebra, site unspecified (principal)
CPT/HCPCS: 80053; 85025; 86140